=== PATIENT | male | born 1960 | race Caucasian/White ===

== ENCOUNTER 2018-04-06 09:55 | Emergency (ER) | payer MEDICAID, SELFPAY ==
[2018-04-06] VITALS (39 sets, daily range): BP systolic 78–142; BP diastolic 53–104; PULSE 61–140; RESP 1–24; TEMP 34.7–35.4; O2SAT 92–100
--- NOTE | 2018-04-06 10:10 | DI.CT_ITS ---
SYMPTOM/DIAGNOSIS: TRAUMA, FALL ? CT CHEST: There is no pleural effusion. The heart is not enlarged. There is no pericardial effusion The aorta is intact. No fracture is apparent. The image quality is somewhat limited due to patient motion and positioning. An endotracheal tube ends in good position, comfortably above the nina. CT ABDOMEN AND PELVIS: The liver is unremarkable. The gallbladder is somewhat dilated. No radiopaque stones are seen. As visualized, the pancreas appears intact. The spleen is intact. The patient appears to be status post left nephrectomy. A shrunken atrophic right kidney is identified. A transplanted kidney in the right hemipelvis appears intact. There is no evidence of hydronephrosis. What appears to represent a small cortical cyst is noted in the inferior portion of the kidney. There is no evidence of bowel obstruction. There is no evidence of free air or free fluid in the peritoneal space. The bladder is decompressed. Peraza catheter is in place. There is no localized mesenteric abnormality and no gross bowel abnormality is seen. A small fat containing right inguinal hernia is identified. No fracture involving the lumbar spine or pelvic bones or hips is apparent. There is no evidence of an aortic aneurysm. Please see the above discussion.
--- NOTE | 2018-04-06 10:10 | DI.CT_ITS ---
SYMPTOM/DIAGNOSIS: TRAUMA, ? FALL CRANIAL CT: There is no evidence of an intra or extra axial hemorrhage. No mass, edema or evidence of a territorial infarct is seen. The ventricles are unremarkable. There is no evidence of a skull fracture. The paranasal sinuses are intact. There is no evidence of a mastoid effusion. SUMMARY: No evidence of an acute intracranial abnormality. C-SPINE CT: The study was conducted according to the usual protocol without contrast enhancement. The vertebral bodies are intact. There is no gross disc space narrowing. The posterior elements are intact. There is degenerative facet joint DJD. There is no evidence of a fracture or dislocation. The neural canal is widely patent. The odontoid is intact and is closely applied to the anterior arch of C-1. The pre-vertebral soft tissues are unremarkable. An endotracheal tube is incompletely demonstrated but appears to end in the trachea. SUMMARY: No evidence of a fracture or dislocation. Endotracheal tube apparently in good position.
[2018-04-06 10:17] LABS: Mean Corp. HGB Concentration 31.4 g/dL (32.0-36.0); Mean Corpuscular Hemoglobin 30.9 pg (27.0-33.0); Mean Corpuscular Volume 98.4 fL (80-95); Mean Platelet Volume 9.1 fL (8.0-11.0); Platelet Count 171 x1000/uL (130-400); RBC 1.91 m/cumm (4.50-6.00); RBC Distribution Width 15.9 % (11.8-14.1); White Blood Cell Count 7.73 k/cumm (4.4-10.8)
[2018-04-06 10:18] LABS: HGB 5.9 g/dL (13.5-17.5)
[2018-04-06 10:19] LABS: HCT 18.8 % (40.0-50.0)
[2018-04-06 10:24] LABS: HCO3 (Venous) 15 mmol/L (22-28); O2 Sat (Venous) 97 % (70-80); TCO2 (Venous) 15 mmol/L (22-29); pCO2 (Venous) 44 mm/Hg (34-47); pO2 (Venous) 102 mm/Hg (28-44)
[2018-04-06] MEDS: Omnipaque 350 MG/ML 100 ML BTL IJ (10:24)
[2018-04-06 10:26] LABS: Absolute Eosinophil Count 0.08 k/cumm (0.0-0.7); Absolute Lymphocyte Count 3.09 k/cumm (1.2-3.4); Absolute Monocyte Count 0.54 k/cumm (0.11-0.7); Absolute Neutrophil Count 3.71 k/cumm (1.2-6.7); Diff Comment Manual Differential
[2018-04-06 10:27] LABS: Burr Cells (echinocyte) 2+; Poikilocytes 1+; pH (Venous) 7.14 (7.32-7.43)
[2018-04-06 10:29] LABS: ALT 20 U/L (12-78); AST 24 U/L (15-37); Albumin 2.3 g/dL (3.4-5.0); Alkaline Phosphatase 98 U/L (46-116); BUN 53 mg/dL (7-18); Bilirubin, Total 0.3 mg/dL (0.2-1.0); CREATININE 2.78 mg/dL (0.70-1.30); Calcium 7.2 mg/dL (8.5-10.1); Chloride 115 mmol/L (98-107); Estimated GFR 23.75 (mL/min/1.73m2); Glucose 184 mg/dL (70-100); Potassium 5.6 mmol/L (3.5-5.1); Sodium 143 mmol/L (136-145); Total Protein 4.9 g/dL (6.4-8.2)
[2018-04-06 10:32] LABS: PTT Activated 30.8 sec (21.0-31.4); Prothrombin Time 45.2 sec (9.3-10.8)
--- NOTE | 2018-04-06 10:35 | W.ED.GENAD ---
Discharge Plan Discharge Details Chief Complaint: [facility] Primary Care Provider: Carroll Fuentes ED Provider: Kurt Sandy Home Meds and New Rx's Prescriptions: No Action hydralazine 50 MG tablet 1 tab PO BID RF: 0 levetiracetam [Keppra] 1,000 MG tablet 500 mg PO BID Qty: 180 RF: 4 mycophenolate mofetil [CellCept] 250 MG capsule 1 tab PO BID RF: 0 metoprolol tartrate [Lopressor] 50 MG tablet 50 mg PO TID Qty: 270 RF: 3 pantoprazole 40 MG tablet,delayed release (DR/EC) 40 mg PO DAILY Qty: 90 RF: 1 sodium bicarbonate 650 MG tablet 650 mg PO TID RF: 0 losartan 25 MG tablet 25 mg PO QAM RF: 0 diltiazem HCl [Cartia XT] 120 MG capsule,extended release 24hr 120 mg PO DAILY RF: 0 Warfarin Sodium 5 MG tablet 0 - 7.5 mg PO as directed Qty: 180 RF: 3 levothyroxine [Synthroid] 88 MCG tablet 88 mcg PO DAILY Qty: 90 RF: 3 tacrolimus [Prograf] 1 MG capsule 1 cap PO BID Qty: 0 RF: 0 allopurinol 100 MG tablet 150 mg PO DAILY RF: 0 acetaminophen [Mapap Extra Strength] 500 MG tablet 1,000 mg PO Q6H PRN PRNQty: 30 RF: 0 Medical Decision Making 57-year-old male found in a pool of blood from exsanguination due to unknown injury to left upper extremity AV fistula. He required fluid bolus, epinephrine, CPR for return of spontaneous circulation in the field. He arrives with bag valve mask with a GCS of 3. Patient had left lower extremity IO access placed in the field. He had 2 right upper extremity peripheral IVs, 14-gauge and 16-gauge. Point pressure was applied persistent bleeding of left upper extremity. Patient has a hemoglobin of 5. He was given rapid infusion and placed on massive transition protocol including 4 units of blood, FFp. He was intubated for GCS of 3 on arrival following out of hospital PEA arrest. Case is discussed with Dr. Ireland of [facility], accepted in transfer. Prior to transfer patient underwent CT scan of the head, cervical spine, chest abdomen and pelvis given every we are unable to elicit any history of the antecedent events. inr 4, vitamin K administered as well. Per Dr. Goss, no evidence of acute traumatic injury to the head, cervical spine, or body images. After return from CT, the patient is alert, following commands, able to mouth appropriate words over the endotracheal tube. Patient to be transferred. HPI General Mode of arrival: EMS. Date/Time Provider Initiated Documentation: 04/06/18 09:56. Limitations to Documentation: altered mental status. Information obtained by: EMS. History of Present Illness 57 year old M presents to the emergency department with the chief complaint of Large volume blood loss and PEA arrest, described as severe, HPI Narrative: 57-year-old male brought by EMS after he was found unresponsive and covered in blood in his apartment. EMS report impressive amount of blood throughout the apartment and patient found unresponsive with agonal breathing in his bathroom. He was bleeding from the left upper extremity AV fistula. Patient received fluid bolus, 1 mg of epinephrine, CPR and had spontaneous return of circulation. Patient also brought to the ED. He is in critical condition and not contributory to the history Related Data Home Medications Medication Instructions Recorded Confirmed hydralazine 1 tab PO BID tab-cap 11/09/12 08/26/17 levetiracetam [Keppra] 500 mg PO BID #180 11/09/12 08/26/17 tacrolimus [Prograf] 1 cap PO BID #0 04/04/14 08/26/17 mycophenolate mofetil [CellCept] 1 tab PO BID tab-cap 09/04/15 08/26/17 allopurinol 150 mg PO DAILY 02/16/16 08/26/17 metoprolol tartrate [Lopressor] 50 mg PO TID #270 tab 11/04/16 pantoprazole 40 mg PO DAILY #90 tab-cap 08/17/17 sodium bicarbonate 650 mg PO TID 08/18/17 08/26/17 diltiazem HCl [Cartia XT] 120 mg PO DAILY 08/19/17 08/26/17 losartan 25 mg PO QAM 08/19/17 08/26/17 acetaminophen [Tylenol Extra 1,000 mg PO Q6H PRN PRN #30 tab 08/26/17 Strength] levothyroxine [Synthroid] 88 mcg PO DAILY #90 tab 10/08/17 Previous Rx's Medication Instructions Recorded tacrolimus [Prograf] 1 cap PO BID #0 04/04/14 pantoprazole 40 mg PO DAILY #90 tab-cap 08/17/17 acetaminophen [Tylenol Extra 1,000 mg PO Q6H PRN PRN #30 tab 08/26/17 Strength] levothyroxine [Synthroid] 88 mcg PO DAILY #90 tab 10/08/17 Allergies Allergy/AdvReac Type Severity Reaction Status Date / Time hydrochlorothiazide Allergy Mild Unverified 04/06/18 10:12 benazepril Allergy Unknown Unverified 04/06/18 10:12 codeine Allergy Unknown Unverified 04/06/18 10:12 Review of Systems Review of Systems Unobtainable due to mental status PFSH Family History Mother Diabetes Medical History Allergic rhinitis Chronic acquired lymphedema Cognitive impairment Gout H/O deep venous thrombosis H/O left inguinal hernia repair Hypertension IgA nephropathy Melanocytic nevi of trunk Personal history of immunosupression therapy Renal mass Right inguinal hernia Seizure disorder TBI (traumatic brain injury) Varicose veins of both lower extremities Venous insufficiency Social History Smoking/Tobacco Use Status: Never Surgical History Colonoscopy - MAC (02/22/17) Nephrectomy Repair of inguinal hernia bunionectomy kidney transplant Exam Const General: other (Syp-hosce-qkyd, covered in blood) HENDE Head: normocephalic and atraumatic Eyes Pupils: PERRL Neck Neck: normal visual inspection Resp Effort & Inspection: other (Assisted ventilation) Auscultation: clear to auscultation bilaterally Cardio Rate: tachycardic Rhythm: regular rhythm GI Inspection: non-distended Palpation: soft Penis: normal penis Skin General skin exam: other Neuro General: obtunded and other Speech: other Motor: other (Patient is moving all 4 external) Extrem General: other (Decreased cap refill, there are 2 tourniquets present in the proximal left humerus. There is an area of subcutaneous swelling with spurting blood the mid left arm. Hemostasis achieved with point pressure) Course Lab/Test Results Lab/Test Results: Laboratory Tests Range/Units 04/06/18 04/06/18 04/06/18 10:07 10:07 10:07 WBC (4.4-10.8) k/cumm 7.73 RBC (4.50-6.00) m/cumm 1.91 L Hgb (13.5-17.5) g/dL 5.9 L* Hct (40.0-50.0) % 18.8 L* MCV (80-95) fL 98.4 H MCH (27.0-33.0) pg 30.9 MCHC (32.0-36.0) g/dL 31.4 L RDW (11.8-14.1) % 15.9 H Plt Count (130-400) x1000/uL 171 MPV (8.0-11.0) fL 9.1 Immature Gran % See Differential Neutrophils % 46.0 Lymphocytes % 40.0 Monocytes % 7.0 Eosinophils % 1.0 Basophils % 0.0 Absolute Neutrophils (1.2-6.7) k/cumm 3.71 Band Neutrophils % 2.0 Absolute Lymphocytes (1.2-3.4) k/cumm 3.09 Absolute Monocytes (0.11-0.7) k/cumm 0.54 Absolute Eosinophils (0.0-0.7) k/cumm 0.08 Absolute Basophils (0.0-0.2) k/cumm 0.00 Metamyelocytes % 2.0 Myelocytes % 2.0 Differential Comment Manual differential RBC Morphology See below Poikilocytosis 1+ [place] Cells 2+ VBG pH (7.32-7.43) VBG pCO2 (34-47) mm/Hg VBG pO2 (28-44) mm/Hg VBG HCO3 (22-28) mmol/L VBG Total CO2 (22-29) mmol/L VBG O2 Saturation (70-80) % VBG Base Excess (-3-3) mmol/L Sodium (136-145) mmol/L 143 Potassium (3.5-5.1) mmol/L 5.6 H Chloride (98-107) mmol/L 115 H Carbon Dioxide (21.0-32.0) mmol/L 17.0 L Anion Gap (3-11) mmol/L 11.0 BUN (7-18) mg/dL 53 H Creatinine (0.70-1.30) mg/dL 2.78 H Estimated GFR/1.73 m2 (mL/min/1.73m2) 23.75 Glucose (70-100) mg/dL 184 H Calcium (8.5-10.1) mg/dL 7.2 L Total Bilirubin (0.2-1.0) mg/dL 0.3 AST (15-37) U/L 24 ALT (12-78) U/L 20 Alkaline Phosphatase (46-116) U/L 98 Total Protein (6.4-8.2) g/dL 4.9 L Albumin (3.4-5.0) g/dL 2.3 L Crossmatch See Detail Range/Units 04/06/18 10:07 WBC (4.4-10.8) k/cumm RBC (4.50-6.00) m/cumm Hgb (13.5-17.5) g/dL Hct (40.0-50.0) % MCV (80-95) fL MCH (27.0-33.0) pg MCHC (32.0-36.0) g/dL RDW (11.8-14.1) % Plt Count (130-400) x1000/uL MPV (8.0-11.0) fL Immature Gran % Neutrophils % Lymphocytes % Monocytes % Eosinophils % Basophils % Absolute Neutrophils (1.2-6.7) k/cumm Band Neutrophils % Absolute Lymphocytes (1.2-3.4) k/cumm Absolute Monocytes (0.11-0.7) k/cumm Absolute Eosinophils (0.0-0.7) k/cumm Absolute Basophils (0.0-0.2) k/cumm Metamyelocytes % Myelocytes % Differential Comment RBC Morphology Poikilocytosis [place] Cells VBG pH (7.32-7.43) 7.14 L VBG pCO2 (34-47) mm/Hg 44 VBG pO2 (28-44) mm/Hg 102 H VBG HCO3 (22-28) mmol/L 15 L VBG Total CO2 (22-29) mmol/L 15 L VBG O2 Saturation (70-80) % 97 H VBG Base Excess (-3-3) mmol/L Sodium (136-145) mmol/L Potassium (3.5-5.1) mmol/L Chloride (98-107) mmol/L Carbon Dioxide (21.0-32.0) mmol/L Anion Gap (3-11) mmol/L BUN (7-18) mg/dL Creatinine (0.70-1.30) mg/dL Estimated GFR/1.73 m2 (mL/min/1.73m2) Glucose (70-100) mg/dL Calcium (8.5-10.1) mg/dL Total Bilirubin (0.2-1.0) mg/dL AST (15-37) U/L ALT (12-78) U/L Alkaline Phosphatase (46-116) U/L Total Protein (6.4-8.2) g/dL Albumin (3.4-5.0) g/dL Crossmatch
--- NOTE | 2018-04-06 10:42 | ED.GENADUL_ITS ---
Discharge Plan Discharge Details Chief Complaint: [facility]Blue Primary Care Provider: Carroll Fuentes ED Provider: Kurt Sandy Home Meds and New Rx's Prescriptions: No Action hydralazine 50 MG tablet 1 tab PO BID RF: 0 levetiracetam [Keppra] 1,000 MG tablet 500 mg PO BID Qty: 180 RF: 4 mycophenolate mofetil [CellCept] 250 MG capsule 1 tab PO BID RF: 0 metoprolol tartrate [Lopressor] 50 MG tablet 50 mg PO TID Qty: 270 RF: 3 pantoprazole 40 MG tablet,delayed release (DR/EC) 40 mg PO DAILY Qty: 90 RF: 1 sodium bicarbonate 650 MG tablet 650 mg PO TID RF: 0 losartan 25 MG tablet 25 mg PO QAM RF: 0 diltiazem HCl [Cartia XT] 120 MG capsule,extended release 24hr 120 mg PO DAILY RF: 0 Warfarin Sodium 5 MG tablet 0 - 7.5 mg PO as directed Qty: 180 RF: 3 levothyroxine [Synthroid] 88 MCG tablet 88 mcg PO DAILY Qty: 90 RF: 3 tacrolimus [Prograf] 1 MG capsule 1 cap PO BID Qty: 0 RF: 0 allopurinol 100 MG tablet 150 mg PO DAILY RF: 0 acetaminophen [Mapap Extra Strength] 500 MG tablet 1,000 mg PO Q6H PRN PRNQty: 30 RF: 0 Medical Decision Making 57-year-old male found in a pool of blood from exsanguination due to unknown injury to left upper extremity AV fistula. He required fluid bolus, epinephrine , CPR for return of spontaneous circulation in the field. He arrives with bag valve mask with a GCS of 3. Patient had left lower extremity IO access placed in the field. He had 2 right upper extremity peripheral IVs, 14-gauge and 16- gauge. Point pressure was applied persistent bleeding of left upper extremity. Patient has a hemoglobin of 5. He was given rapid infusion and placed on massive transition protocol including 4 units of blood, FFp. He was intubated for GCS of 3 on arrival following out of hospital PEA arrest. [place] [facility] [place] Prior to transfer patient underwent CT scan of the head, cervical spine, chest abdomen and pelvis given every we are unable to elicit any history of the antecedent events. inr 4 , vitamin K administered as well. Per Dr. Goss, no evidence of acute traumatic injury to the head, cervical spine , or body images. After return from CT, the patient is alert, following commands, able to mouth appropriate words over the endotracheal tube. Patient to be transferred. HPI General Mode of arrival: EMS . Date/Time Provider Initiated Documentation: 04/06/18 09:56 . Limitations to Documentation: altered mental status . Information obtained by: EMS . History of Present Illness 57 year old M presents to the emergency department with the chief complaint of Large volume blood loss and PEA arrest, described as severe, HPI Narrative: 57-year-old male brought by EMS after he was found unresponsive and covered in blood in his apartment. EMS report impressive amount of blood throughout the apartment and patient found unresponsive with agonal breathing in his bathroom. He was bleeding from the left upper extremity AV fistula. Patient received fluid bolus, 1 mg of epinephrine, CPR and had spontaneous return of circulation. Patient also brought to the ED. He is in critical condition and not contributory to the history Related Data Home Medications Medication Instructions Recorded Confirmed hydralazine 1 tab PO BID tab-cap 11/09/12 08/26/17 levetiracetam [Keppra] 500 mg PO BID #180 11/09/12 08/26/17 tacrolimus [Prograf] 1 cap PO BID #0 04/04/14 08/26/17 mycophenolate mofetil [CellCept] 1 tab PO BID tab-cap 09/04/15 08/26/17 allopurinol 150 mg PO DAILY 02/16/16 08/26/17 metoprolol tartrate [Lopressor] 50 mg PO TID #270 tab 11/04/16 pantoprazole 40 mg PO DAILY #90 tab-cap 08/17/17 sodium bicarbonate 650 mg PO TID 08/18/17 08/26/17 diltiazem HCl [Cartia XT] 120 mg PO DAILY 08/19/17 08/26/17 losartan 25 mg PO QAM 08/19/17 08/26/17 acetaminophen [Tylenol Extra 1,000 mg PO Q6H PRN PRN #30 tab 08/26/17 Strength] levothyroxine [Synthroid] 88 mcg PO DAILY #90 tab 10/08/17 Previous Rx's Medication Instructions Recorded tacrolimus [Prograf] 1 cap PO BID #0 04/04/14 pantoprazole 40 mg PO DAILY #90 tab-cap 08/17/17 acetaminophen [Tylenol Extra 1,000 mg PO Q6H PRN PRN #30 tab 08/26/17 Strength] levothyroxine [Synthroid] 88 mcg PO DAILY #90 tab 10/08/17 Allergies Allergy/AdvReac Type Severity Reaction Status Date / Time hydrochlorothiazide Allergy Mild Unverified 04/06/18 10:12 benazepril Allergy Unknown Unverified 04/06/18 10:12 codeine Allergy Unknown Unverified 04/06/18 10:12 Review of Systems Review of Systems Unobtainable due to mental status PFSH Family History Mother Diabetes Medical History Allergic rhinitis Chronic acquired lymphedema Cognitive impairment Gout H/O deep venous thrombosis H/O left inguinal hernia repair Hypertension IgA nephropathy Melanocytic nevi of trunk Personal history of immunosupression therapy Renal mass Right inguinal hernia Seizure disorder TBI (traumatic brain injury) Varicose veins of both lower extremities Venous insufficiency Social History Smoking/Tobacco Use Status: Never Surgical History Colonoscopy - MAC (02/22/17) Nephrectomy Repair of inguinal hernia bunionectomy kidney transplant Exam Const General: other ([id number]-muvs, covered in blood) HENWI Head: normocephalic and atraumatic Eyes Pupils: PERRL Neck Neck: normal visual inspection Resp Effort & Inspection: other (Assisted ventilation) Auscultation: clear to auscultation bilaterally Cardio Rate: tachycardic Rhythm: regular rhythm GI Inspection: non-distended Palpation: soft Penis: normal penis Skin General skin exam: other Neuro General: obtunded and other Speech: other Motor: other (Patient is moving all 4 external) Extrem General: other (Decreased cap refill, there are 2 tourniquets present in the proximal left humerus. There is an area of subcutaneous swelling with spurting blood the mid left arm. Hemostasis achieved with point pressure) Course Lab/Test Results Lab/Test Results: Laboratory Tests Range/Units 04/06/18 04/06/18 04/06/18 10:07 10:07 10:07 WBC (4.4-10.8) k/cumm 7.73 RBC (4.50-6.00) m/cumm 1.91 L Hgb (13.5-17.5) g/dL 5.9 L* Hct (40.0-50.0) % 18.8 L* MCV (80-95) fL 98.4 H MCH (27.0-33.0) pg 30.9 MCHC (32.0-36.0) g/dL 31.4 L RDW (11.8-14.1) % 15.9 H Plt Count (130-400) x1000/uL 171 MPV (8.0-11.0) fL 9.1 Immature Gran % See Differential Neutrophils % 46.0 Lymphocytes % 40.0 Monocytes % 7.0 Eosinophils % 1.0 Basophils % 0.0 Absolute Neutrophils (1.2-6.7) k/cumm 3.71 Band Neutrophils % 2.0 Absolute Lymphocytes (1.2-3.4) k/cumm 3.09 Absolute Monocytes (0.11-0.7) k/cumm 0.54 Absolute Eosinophils (0.0-0.7) k/cumm 0.08 Absolute Basophils (0.0-0.2) k/cumm 0.00 Metamyelocytes % 2.0 Myelocytes % 2.0 Differential Comment Manual differential RBC Morphology See below Poikilocytosis 1+ [place] Cells 2+ VBG pH (7.32-7.43) VBG pCO2 (34-47) mm/Hg VBG pO2 (28-44) mm/Hg VBG HCO3 (22-28) mmol/L VBG Total CO2 (22-29) mmol/L VBG O2 Saturation (70-80) % VBG Base Excess (-3-3) mmol/L Sodium (136-145) mmol/L 143 Potassium (3.5-5.1) mmol/L 5.6 H Chloride (98-107) mmol/L 115 H Carbon Dioxide (21.0-32.0) mmol/L 17.0 L Anion Gap (3-11) mmol/L 11.0 BUN (7-18) mg/dL 53 H Creatinine (0.70-1.30) mg/dL 2.78 H Estimated GFR/1.73 m2 (mL/min/1.73m2) 23.75 Glucose (70-100) mg/dL 184 H Calcium (8.5-10.1) mg/dL 7.2 L Total Bilirubin (0.2-1.0) mg/dL 0.3 AST (15-37) U/L 24 ALT (12-78) U/L 20 Alkaline Phosphatase (46-116) U/L 98 Total Protein (6.4-8.2) g/dL 4.9 L Albumin (3.4-5.0) g/dL 2.3 L Crossmatch See Detail Range/Units 04/06/18 10:07 WBC (4.4-10.8) k/cumm RBC (4.50-6.00) m/cumm Hgb (13.5-17.5) g/dL Hct (40.0-50.0) % MCV (80-95) fL MCH (27.0-33.0) pg MCHC (32.0-36.0) g/dL RDW (11.8-14.1) % Plt Count (130-400) x1000/uL MPV (8.0-11.0) fL Immature Gran % Neutrophils % Lymphocytes % Monocytes % Eosinophils % Basophils % Absolute Neutrophils (1.2-6.7) k/cumm Band Neutrophils % Absolute Lymphocytes (1.2-3.4) k/cumm Absolute Monocytes (0.11-0.7) k/cumm Absolute Eosinophils (0.0-0.7) k/cumm Absolute Basophils (0.0-0.2) k/cumm Metamyelocytes % Myelocytes % Differential Comment RBC Morphology Poikilocytosis [place] Cells VBG pH (7.32-7.43) 7.14 L VBG pCO2 (34-47) mm/Hg 44 VBG pO2 (28-44) mm/Hg 102 H VBG HCO3 (22-28) mmol/L 15 L VBG Total CO2 (22-29) mmol/L 15 L VBG O2 Saturation (70-80) % 97 H VBG Base Excess (-3-3) mmol/L Sodium (136-145) mmol/L Potassium (3.5-5.1) mmol/L Chloride (98-107) mmol/L Carbon Dioxide (21.0-32.0) mmol/L Anion Gap (3-11) mmol/L BUN (7-18) mg/dL Creatinine (0.70-1.30) mg/dL Estimated GFR/1.73 m2 (mL/min/1.73m2) Glucose (70-100) mg/dL Calcium (8.5-10.1) mg/dL Total Bilirubin (0.2-1.0) mg/dL AST (15-37) U/L ALT (12-78) U/L Alkaline Phosphatase (46-116) U/L Total Protein (6.4-8.2) g/dL Albumin (3.4-5.0) g/dL Crossmatch
--- NOTE | 2018-04-06 10:44 | DI.CT_ITS ---
SYMPTOMS/DIAGNOSIS: RECONS RE[place] DR. SABRINA WAITE [place] [facility] [place]ORACIC [place] LUMBAR SPINE: The patient had a prior CT of the chest and abdomen. The reconstructed images today reveal degenerative changes involving the lower dorsal and lumbar spine.
[2018-04-06 10:51] LABS: INR 4.9 (1.0-3.5)
[2018-04-06] MEDS: MIDAZOLAM 50 MG in Normal Saline 90 ML IV (11:25)
[2018-04-06] MEDS: fentaNYL 100 MCG/2 ML VIAL (11:30)
--- NOTE | 2018-04-06 12:01 | ANES_ITS ---
Date of service: 04/06/18 Anesthesia Note Report Anesthesia Note: Called to the ED for trauma arrest. Pt arrived via EMS, covered in blood, unresponsive with ventilations being assisted. Ventilation assist taken over from EMS, easy assist/mask ventilation with single handed mask. 100 mm OPA placed without difficulty, but removed due to patient coughing/ gaging on it. Once additional tourniquet applied to control bleeding, patient was sat up, and positioned for intubation. Confirmation of working suction, positive pressure ability, working ETCO2, and appropriate drugs and airway equipment available and ready. 100 mg ketamine and 50 mg of rocuronium was administered, ventilations taken over (easy gentle mask ventilation). A glide 3 blade was inserted into the mouth yielding a grade 1 view, but tube was unable to be passed successfully through the cord due to angle of view. Attempt was aborted, gentle mask ventilation was resumed with good chest rise and positive ETCO2. Attempt 2 was also with glide 3 but attempted with bougie, angle continued to be a hindrance to bougie placement and attempt aborted and mask ventilation resumed. Attempt 3 was preformed with Mac 3 a grade 1 view was appreciated and a bougie was placed, then a 7.5 ETT was advanced without difficulty. Positive ETCO2 was noted, tube position initially confirmed with positive balloting of the cuff while waiting for CXR. ETT secured at 24 at the teeth with e-tad, placed on mechanical ventilaiton via RT. Patient is an easy airway, believe initial inability to deliver the ETT due to sub-optimal patient positioning. 10 mcg of epi given during the procedure to maintain appropriate hydrodynamics, pt was hemodynamicly stable throughout the airway securement. SPO2 was not consistently obtained due to poor perfusion.
--- NOTE | 2018-04-06 15:51 | NUR.NOTE ---
Nursing Note: Patient arrived via ambulance nonresponsive and being assisted with Bag assisted ventilations. Trauma alert was activated and anesthesia, surgeon, housekeeper/laundry assistant, radiology and nursing on site in addition to physician. Pt immediately transfused 2 units via rapid infuser at 0954: 1st unit: [id number] and ended 1016. 2nd unit began at 1000 [id number] ending at 1006. Tourniquet from EMS was applied at 0949 but upon [facility] and [facility], patient's wound began to spurt across room and a second tourniquet was applied at 0951. Bleeding controlled and a pressure dressing was applied. Pt had a 16g in R AC and a IO access in left tibia placed by EMS. Labs drawn at 1001. Anesthesia intubated with respiratory's assistance and medications were drawn up and administered by anesthesia at 1008. At 1003 100mg of Ketamine was given in IV R AC and 50mg of Roccuronium was also administered by anesthesia. Pt intubated with a 7.5 ET tube at 24cm at the lips. At 1005 10 mcg of Epi given IV by anesthesia. Escobar inserted at 1010 by RN with clear urine resulted. Pt placed on ventilator by respiratory at 1010 and a C-collar was placed on per order of MD. A 2nd IV was inserted by anesthesia at 1019: 16 in L AC, core temp from escobar noted to be 35.2 at this time. Pt to CT at 1022 with respiratory and nursing in attendance once stable. 3rd unit of blood: [id number] started at 1030 and ended at 1055 via pressure bag per MD. 4th unit of RBC's: started at 1055 and ended 1140 via bolus: [id number]. One unit of plasma started at 1120: [id number] and ended at 1128. Second plasma given at 1130 and at 1132: [id number] 5th unit of blood started at 1130 and ended 1135: [id number]. 6th unit of RBC's started at [id number] started at 1135 and continued to go in with pressure bag with EMS. Pt started on Versed drip. Able to open eyes and communicate with simple questions. MD updated pt's mother via phone. Pt given 50 mcg Fentanyl at 1130 and another 50mcg IV by ems upon leaving. Report called to SAVANNA Patterson at [facility].
== END 2018-04-06 11:48 ==
PROVIDERS: Physician Assistant; Emergency Provider Emergency Medicine; PCP Emergency Medicine
DX: T82.838A Hemorrhage due to vascular prosthetic devices, implants and grafts, initial encounter (principal); Z95.828 Presence of other vascular implants and grafts; I12.0 Hypertensive chronic kidney disease with stage 5 chronic kidney disease or end stage renal disease; N18.6 End stage renal disease; Z99.2 Dependence on renal dialysis; R40.2432 Glasgow coma scale score 3-8, at arrival to emergency department; Z94.0 Kidney transplant status; I10 Essential (primary) hypertension
CPT/HCPCS: 31500; 36415; 36430; 51702; 74177; 80053; 82805; 82947; 84520; 86850; 86900; 86901; 86920; 96365; 96372; 96375; 99291; 70450; 71260; 72125; 81003; 82310; 82374; 82435; 82565; 84132; 84295; 85025; 85610; 85730; J0171; J3010; J3490; P9016; P9059

== ENCOUNTER 2018-05-31 15:44 | Outpatient (REF) | payer MEDICAID, SELFPAY ==
[2018-05-31 16:52] LABS: Anion Gap 14.6 mmol/L (3-11); BUN 59 mg/dL (7-18); CO2 17.4 mmol/L (21.0-32.0); CREATININE 3.34 mg/dL (0.70-1.30); Calcium 8.2 mg/dL (8.5-10.1); Chloride 113 mmol/L (98-107); Estimated GFR 19.22 (mL/min/1.73m2); Glucose 136 mg/dL (70-100); Potassium 5.2 mmol/L (3.5-5.1); Sodium 145 mmol/L (136-145)
[2018-05-31 16:57] LABS: Absolute Basophil Count 0.04 k/cumm (0.0-0.2); Absolute Eosinophil Count 0.15 k/cumm (0.0-0.7); Absolute Lymphocyte Count 1.22 k/cumm (1.2-3.4); Absolute Monocyte Count 0.41 k/cumm (0.11-0.7); Absolute Neutrophil Count 2.59 k/cumm (1.2-6.7); Basophils % 0.9; Eosinophils % 3.4; HCT 30.4 % (40.0-50.0); HGB 9.5 g/dL (13.5-17.5); Lymphocytes % 27.7; Mean Corp. HGB Concentration 31.3 g/dL (32.0-36.0); Mean Corpuscular Hemoglobin 30.4 pg (27.0-33.0); Mean Corpuscular Volume 97.1 fL (80-95); Monocytes % 9.3; Neutrophils % 58.7; Platelet Count 211 x1000/uL (130-400); RBC 3.13 m/cumm (4.50-6.00); RBC Distribution Width 15.1 % (11.8-14.1); White Blood Cell Count 4.41 k/cumm (4.4-10.8)
[2018-05-31 17:25] LABS: Diff Comment RBC Morph Reviewed; RBC Morphology Normal
== END 2018-05-31 16:04 ==
LOC: LBN 15:44
PROVIDERS: PCP Emergency Medicine; Visit Provider Family Medicine
DX: N18.4 Chronic kidney disease, stage 4 (severe) (principal); Z94.0 Kidney transplant status; I10 Essential (primary) hypertension; Z92.25 Personal history of immunosuppression therapy; Z79.899 Other long term (current) drug therapy; D64.9 Anemia, unspecified
CPT/HCPCS: 80048; 85025

== ENCOUNTER 2018-06-02 12:58 | Emergency (ER) | payer MEDICAID, SELFPAY ==
[2018-06-02] VITALS (14 sets, daily range): BP systolic 155–176; BP diastolic 95–106; PULSE 61–69; RESP 16–23; TEMP 36.2; O2SAT 94–98
--- NOTE | 2018-06-02 13:07 | DI.CT_ITS ---
SYMPTOMS/DIAGNOSIS: FALL, TRAUMA, ALTERED CRANIAL CT: The examination was carried out without contrast enhancement. Note is made of a right frontal subarachnoid hemorrhage and right temporal lobe in a number of locations. In addition subarachnoid hemorrhage in the right sylvian fissure is apparent. There are small parenchymal hemorrhages in the right frontal lobe and right temporal lobe. There is ventriculomegaly and there is no skull fracture. Note is made of minimal mucosal thickening in the maxillary sinuses. There is no mastoid effusion. There is disruption of the extra calvarial soft tissues laterally and on left. These findings may represent lacerations. SUMMARY: 1. Subarachnoid hemorrhage in the right frontal lobe and right temporal lobe in multiple locations with subarachnoid hemorrhage in the right sylvian fissure. In addition small parenchymal hemorrhages are noted in the right frontal lobe and right temporal lobe. 2. Disruption of the extra calvarial soft tissues laterally on the left could represent lacerations with note also made of what appears to represent a left scalp hematoma. CERVICAL SPINE CT: There is no acute fracture involving the cervical spine. There is no evidence of dislocation. Note is made of anterior osteophytes at C 4 through C 7 and degenerative changes in the facet joints at multiple levels are also identified in this patient. In addition degenerative C 1 - 2 changes are apparent. Intervertebral disc space narrowing is noted at C 5 through C 7 likely represents degenerative change. The soft tissues are unremarkable. Heterogeneity of the thyroid is incidentally identified. The lungs apices are normal. Also incidental note is made of nonspecific fluid within the ethmoid sinuses. SUMMARY: There is no evidence of an acute fracture or subluxation involving the cervical spine. Degenerative changes as described above.
--- NOTE | 2018-06-02 13:16 | ED.GENADUL_ITS ---
Discharge Plan Disposition Patient Disposition: [facility] Discharge Details Chief Complaint: HeadInjury Clinical Impression: Subarachnoid hemorrhage Reason For Visit: NINOSKA Primary Care Provider: Carroll Fuentes ED Provider: Sven Murray Home Meds and New Rx's Prescriptions: No Action hydralazine 50 MG tablet 1 tab PO BID RF: 0 levetiracetam [Keppra] 1,000 MG tablet 500 mg PO BID Qty: 180 RF: 4 mycophenolate mofetil [CellCept] 250 MG capsule 1 tab PO BID RF: 0 metoprolol tartrate [Lopressor] 50 MG tablet 50 mg PO TID Qty: 270 RF: 3 pantoprazole 40 MG tablet,delayed release (DR/EC) 40 mg PO DAILY Qty: 90 RF: 1 sodium bicarbonate 650 MG tablet 650 mg PO TID RF: 0 losartan 25 MG tablet 25 mg PO QAM RF: 0 diltiazem HCl [Cartia XT] 120 MG capsule,extended release 24hr 120 mg PO DAILY RF: 0 Warfarin Sodium 5 MG tablet 0 - 7.5 mg PO as directed Qty: 180 RF: 3 levothyroxine [Synthroid] 88 MCG tablet 88 mcg PO DAILY Qty: 90 RF: 3 tacrolimus [Prograf] 1 MG capsule 1 cap PO BID Qty: 0 RF: 0 allopurinol 100 MG tablet 150 mg PO DAILY RF: 0 acetaminophen [Mapap Extra Strength] 500 MG tablet 1,000 mg PO Q6H PRN PRNQty: 30 RF: 0 multivitamin [Multiple Vitamins] Tablet 1 tab PO DAILY RF: 0 sennosides-docusate sodium [Senna Plus] 8.6-50 mg Tablet 2 tab PO DAILY RF: 0 amlodipine 2.5 mg Tablet 2.5 mg PO DAILY RF: 0 levetiracetam 250 mg Tablet 250 mg PO HS RF: 0 cephalexin [Keflex] 500 mg Capsule 500 mg PO DAILY AM RF: 0 calcitriol 0.5 mcg Capsule 0.5 mcg PO Q OTHER DAY RF: 0 epoetin kerry 20,000 unit/2 mL Solution 1 ml subcut QWEEK RF: 0 Discharge Data Discharge Date/Time-TO BE ENTERED AT DEPARTURE: 06/02/18 14:57 Medical Decision Making 14:13 -- Patient was seen immediately on arrival and medical screening exam performed. 57yo m here with EMS after fall down few steps with left frontal head injury, bleeding heavily, controlled with continued direct pressure. Immediately examined and patient had heavy venous flow from the wound. Lidocaine with epinephrine 8 mL injected locally, wound closed [id number], bleeding controlled but large hematoma forming in the area, pressure dressing applied. Patient noted to have altered mental status that seem to be waxing and waning. Currently maintaining airway. High concern for acute life-threatening intracranial traumatic hemorrhage. Stat CT head. Cervical collar applied. General surgery consulted to assess wound. Finger 8 removed, hemostasis achieved and wound closed primarily. CT of the head interpreted by radiology: Right frontal, temporal and intraparenchymal subarachnoid hemorrhage. HOB 30 deg. Initial concern for anticoagulation as patient notes that he is on coumadin. MAR from rehab reviewed and no coumadin noted. Patient is on low dose asa. INR 1.0 . No reversal indicated. I called and spoke with [facility] trauma who will accept the patient in transfer. Recommend starting nicardipine to control blood pressure and maintain <160. [facility] not able to fly due to weather. Will send by ground with medic. SBP 155/100. HPI General Mode of arrival: ambulatory . Date/Time Provider Initiated Documentation: 06/02/18 13:07 . Limitations to Documentation: altered mental status . Information obtained by: patient and EMS . HPI Narrative: 57yo m with multiple medical problems including s/p renal transplant, recent cardiac arrest, here with mechanical fall with head trauma. HX limited 2/2 altered mentation. Patient denies MÉNDEZ. Feels confused. EMS note heavy bleeding. Related Data Home Medications Medication Instructions Recorded Confirmed hydralazine 1 tab PO BID tab-cap 11/09/12 06/05/18 levetiracetam [Keppra] 500 mg PO BID #180 11/09/12 06/05/18 tacrolimus [Prograf] 1 cap PO BID #0 04/04/14 06/05/18 mycophenolate mofetil [CellCept] 1 tab PO BID tab-cap 09/04/15 06/05/18 allopurinol 150 mg PO DAILY 02/16/16 06/05/18 metoprolol tartrate [Lopressor] 50 mg PO TID #270 tab 11/04/16 06/05/18 pantoprazole 40 mg PO DAILY #90 tab-cap 08/17/17 06/05/18 sodium bicarbonate 650 mg PO TID 08/18/17 06/05/18 diltiazem HCl [Cartia XT] 120 mg PO DAILY 08/19/17 06/05/18 losartan 25 mg PO QAM 08/19/17 06/05/18 acetaminophen [Mapap Extra 1,000 mg PO Q6H PRN PRN #30 tab 08/26/17 06/05/18 Strength] levothyroxine [Synthroid] 88 mcg PO DAILY #90 tab 10/08/17 06/05/18 amlodipine 2.5 mg PO DAILY 06/05/18 06/05/18 calcitriol 0.5 mcg PO Q OTHER DAY 06/05/18 06/05/18 cephalexin [Keflex] 500 mg PO DAILY AM 06/05/18 06/05/18 epoetin kerry 1 ml SUBCUT QWEEK 06/05/18 06/05/18 levetiracetam 250 mg PO HS 06/05/18 06/05/18 multivitamin [Multiple Vitamins] 1 tab PO DAILY 06/05/18 06/05/18 sennosides-docusate sodium [Senna 2 tab PO DAILY 06/05/18 06/05/18 Plus] Previous Rx's Medication Instructions Recorded tacrolimus [Prograf] 1 cap PO BID #0 04/04/14 pantoprazole 40 mg PO DAILY #90 tab-cap 08/17/17 acetaminophen [Mapap Extra 1,000 mg PO Q6H PRN PRN #30 tab 08/26/17 Strength] levothyroxine [Synthroid] 88 mcg PO DAILY #90 tab 10/08/17 Allergies Allergy/AdvReac Type Severity Reaction Status Date / Time hydrochlorothiazide Allergy Mild Unverified 06/05/18 15:58 benazepril Allergy Unknown Unverified 06/05/18 15:58 codeine Allergy Unknown Unverified 06/05/18 15:58 pollen extracts AdvReac Mild chronic Unverified 06/05/18 15:58 rhinitis General Stated Complaint: HeadInjury SANJUANA: 2 Review of Systems Review of Systems Unobtainable due to mental condition PFSH Family History Mother Diabetes Medical History Allergic rhinitis Chronic acquired lymphedema Cognitive impairment Gout H/O deep venous thrombosis H/O left inguinal hernia repair Hypertension IgA nephropathy Melanocytic nevi of trunk Personal history of immunosupression therapy Renal mass Right inguinal hernia Seizure disorder TBI (traumatic brain injury) Varicose veins of both lower extremities Venous insufficiency Social History Smoking/Tobacco Use Status: Never Surgical History Colonoscopy - MAC (02/22/17) Nephrectomy Repair of inguinal hernia bunionectomy kidney transplant Social History Smoking/Tobacco Use Status: Never Exam Const General: cooperative and anxious Orientation: alert and confused Limitations: altered mental status HENMT Head: no palpable skull fracture and other (2 cm lac left forehead with flowing venous bleeding) Mouth: moist mucous membranes Eyes Conjunctivae: normal conjunctivae Sclera: normal sclerae EOM: EOM intact bilaterally Neck Neck: trachea midline and supple Resp Auscultation: clear to auscultation bilaterally, no rales, no rhonchi and no wheezes Cardio Jugular venous pressure: no JVD Rate: regular rate and not tachycardic Rhythm: regular rhythm GI Palpation: soft, not firm, no guarding, no masses, not rigid and nontender Skin General skin exam: no rashes or lesions noted Neuro General: alert, awake, oriented Patient Orientation: Person, Place and Confused , tone normal and no focal motor deficits Extrem General: edema Laterality: bilateral Psych Appearance: grossly normal Speech and Movement: speech and movement normal Course Vital Signs Temperature 36.2 C L 06/02/18 12:56 Pulse 69 06/02/18 12:56 Respiratory Rate 16 06/02/18 12:56 Blood Pressure 159/105 H 06/02/18 12:56 Pulse Oximetry 98 06/02/18 12:56 Temperature 36.2 C L 06/02/18 12:56 Temperature Source Skin 06/02/18 12:56 Pulse 69 06/02/18 12:56 Respiratory Rate 16 06/02/18 12:56 Respiratory Effort 06/02/18 12:56 Blood Pressure 159/105 H 06/02/18 12:56 Blood Pressure Position Sitting 06/02/18 12:56 Pulse Oximetry 98 06/02/18 12:56 Oxygen Delivery Method Room Air 06/02/18 12:56 Oxygen Flow Rate 0 06/02/18 12:56 Pain Level 0 06/02/18 12:56 Critical Care Time Critical Care Time: Yes Total Critical Care Time: 65 Attestation: Greater than 65 minutes addressing this patient's immediate life threats
[2018-06-02] MEDS: Normal Saline Flush 10 ML SYR IVP (13:45)
[2018-06-02 13:54] LABS: Abs Immature Grans 0.01 k/cumm (0.0-0.09); Absolute Basophil Count 0.02 k/cumm (0.0-0.2); Absolute Eosinophil Count 0.12 k/cumm (0.0-0.7); Absolute Lymphocyte Count 1.29 k/cumm (1.2-3.4); Absolute Monocyte Count 0.34 k/cumm (0.11-0.7); Absolute Neutrophil Count 2.97 k/cumm (1.2-6.7); Basophils % 0.4; Eosinophils % 2.5; HCT 27.8 % (40.0-50.0); HGB 9.2 g/dL (13.5-17.5); Immature Grans % 0.2; Lymphocytes % 27.2; Mean Corp. HGB Concentration 33.1 g/dL (32.0-36.0); Mean Corpuscular Hemoglobin 31.4 pg (27.0-33.0); Mean Corpuscular Volume 94.9 fL (80-95); Mean Platelet Volume 8.6 fL (8.0-11.0); Monocytes % 7.2; Neutrophils % 62.5; Platelet Count 163 x1000/uL (130-400); RBC 2.93 m/cumm (4.50-6.00); RBC Distribution Width 14.7 % (11.8-14.1); White Blood Cell Count 4.75 k/cumm (4.4-10.8)
--- NOTE | 2018-06-02 14:00 | DI.VRAD_ITS ---
EXAM: CT Head Without Intravenous Contrast EXAM DATE/TIME: 06/02/2018 1:09 PM CLINICAL HISTORY: 57 years old, male; Injury or trauma; Fall; Injury history: Trauma, altered; Initial encounter; Bleeding / hemorrhage; Bleeding/hemorrhage; Injury date: 06/02/2018 TECHNIQUE: Axial computed tomography images of the head/brain without intravenous contrast. All CT scans at this facility use at least one of these dose optimization techniques: automated exposure control; mA and/or kV adjustment per patient size (includes targeted exams where dose is matched to clinical indication); or iterative reconstruction. Coronal and sagittal reformatted images were created and reviewed. COMPARISON: CT HEAD CERVICAL SPINE WO 04/06/2018 10:16 AM FINDINGS: Brain: Subarachnoid hemorrhage in the right frontal lobe and right temporal lobe in multiple locations. Subarachnoid hemorrhage in the right sylvian fissure.. Small Parenchymal hemorrhages in the right frontal lobe and right temporal lobe. Midline shift: No midline shift Ventricles: Normal. No ventriculomegaly. Bones/joints: Normal. No acute fracture. Sinuses: Minimal mucosal thickening in the maxillary sinuses Mastoid air cells: Normal as visualized. No mastoid effusion. Soft tissues: Disruption in the extracalvarial soft tissues laterally on the left may represent lacerations. IMPRESSION: 1. Subarachnoid hemorrhage in the right frontal lobe and right temporal lobe in multiple locations. Subarachnoid hemorrhage in the right sylvian fissure.. Small Parenchymal hemorrhages in the right frontal lobe and right temporal lobe. 2. Disruption in the extracalvarial soft tissues laterally on the left may represent lacerations. THIS REPORT CONTAINS FINDINGS THAT MAY BE CRITICAL TO PATIENT CARE. The findings were verbally communicated via telephone conference with Sven Murray at 1:58 PM EST on 06/02/2018. The findings were acknowledged and understood. EXAM: CT Cervical Spine Without Intravenous Contrast EXAM DATE/TIME: 06/02/2018 1:09 PM CLINICAL HISTORY: 57 years old, male; Injury or trauma; Fall; Injury history: Trauma, altered; Initial encounter; Bleeding / hemorrhage; Bleeding/hemorrhage; Injury date: 06/02/2018 TECHNIQUE: Axial computed tomography images of the cervical spine without intravenous contrast. Coronal and sagittal reformatted images were created and reviewed. COMPARISON: CT HEAD CERVICAL SPINE WO 04/06/2018 10:16 AM FINDINGS: Vertebrae: No acute fracture of the cervical spine. No subluxation or dislocation of the cervical spine. Anterior osteophyte formation C4-C7 Degenerative changes in the facets at multiple levels Degenerative changes at C1/C2 Discs/Spinal canal/Neural foramina: Intervertebral disc space narrowing C5-C7 may represent degenerative disc disease.. Posterior osteophyte formation C3-C7 Soft tissues: Unremarkable. Thyroid: The thyroid is heterogeneous Lungs: Lung apices are normal. Other findings: There is nonspecific fluid within the ethmoid sinuses. IMPRESSION: 1. No acute fracture of the cervical spine. 2. No subluxation or dislocation of the cervical spine. 3. Intervertebral disc space narrowing C5-C7 may represent degenerative disc disease. Recommend MRI if clinically indicated. Dictated and Authenticated by: Gilda Li MD. Ordering:JEFF DOCKERY MD
[2018-06-02] MEDS: PHYTONADIONE 10 MG in Normal Saline 50 ML 200 MG IVPB (14:02)
[2018-06-02 14:03] LABS: ALT 20 U/L (12-78); AST 22 U/L (15-37); Albumin 3.2 g/dL (3.4-5.0); Alkaline Phosphatase 96 U/L (46-116); Anion Gap 12.9 mmol/L (3-11); BUN 61 mg/dL (7-18); Bilirubin, Total 0.4 mg/dL (0.2-1.0); CO2 19.1 mmol/L (21.0-32.0); CREATININE 3.35 mg/dL (0.70-1.30); Calcium 8.1 mg/dL (8.5-10.1); Chloride 108 mmol/L (98-107); Estimated GFR 19.15 (mL/min/1.73m2); Glucose 146 mg/dL (70-100); Potassium 5.3 mmol/L (3.5-5.1); Sodium 140 mmol/L (136-145); Total Protein 6.1 g/dL (6.4-8.2)
== END 2018-06-02 14:57 | disposition short-term general hospital (02) ==
PROVIDERS: Emergency Provider Student in an Organized Health Care Education/Training Program; PCP Emergency Medicine
DX: S01.112A Laceration without foreign body of left eyelid and periocular area, initial encounter (principal); S06.6X9A Traumatic subarachnoid hemorrhage with loss of consciousness of unspecified duration, initial encounter; W10.8XXA Fall (on) (from) other stairs and steps, initial encounter; Z79.01 Long term (current) use of anticoagulants; Z94.0 Kidney transplant status; I12.0 Hypertensive chronic kidney disease with stage 5 chronic kidney disease or end stage renal disease; N18.6 End stage renal disease
CPT/HCPCS: 36415; 80053; 86850; 86900; 86901; 96374; 99291; 70450; 72125; 85025; 85610; J3430; L0172

== ENCOUNTER 2018-06-05 15:35 | Emergency (ER) | payer MEDICAID, SELFPAY ==
[2018-06-05] VITALS (8 sets, daily range): BP systolic 158–181; BP diastolic 97–104; PULSE 48–53; RESP 10–20; TEMP 36.6; O2SAT 95–97
--- NOTE | 2018-06-05 15:55 | DI.CT_ITS ---
SYMPTOM/DIAGNOSIS: QUESTION LT WEAKNESS, S/P SAH NONCONTRAST HEAD CT: Comparison is made with 02 June 2018 Subarachnoid hemorrhage is again noted around the right frontal lobe within the sulci. The findings are grossly unchanged from the previous exam. No intraparenchymal hemorrhage or subdural collection is seen. There is a mild increase in effacement of the sulci and gyri in the right frontal and parietal regions. There is underlying atrophy and right matter changes of small vessel disease. The ventricles are unchanged in size. IMPRESSION: Stable appearance of right frontal subarachnoid hemorrhage and mild adjacent edema.
--- NOTE | 2018-06-05 15:57 | W.ED.GENAD ---
Discharge Plan Disposition Patient Disposition: [facility] (LEVEL [facility]) [facility] Condition: Improving Discharge Details Chief Complaint: AMS/LOC Clinical Impression: Seizure after head injury Reason For Visit: NINOSKA Primary Care Provider: Carroll Fuentes ED Provider: Kurt Sandy Home Meds and New Rx's Prescriptions: Continue hydralazine 50 MG tablet 1 tab PO BID RF: 0 levetiracetam [Keppra] 1,000 MG tablet 500 mg PO BID Qty: 180 RF: 4 mycophenolate mofetil [CellCept] 250 MG capsule 1 tab PO BID RF: 0 metoprolol tartrate [Lopressor] 50 MG tablet 50 mg PO TID Qty: 270 RF: 3 pantoprazole 40 MG tablet,delayed release (DR/EC) 40 mg PO DAILY Qty: 90 RF: 1 sodium bicarbonate 650 MG tablet 650 mg PO TID RF: 0 losartan 25 MG tablet 25 mg PO QAM RF: 0 diltiazem HCl [Cartia XT] 120 MG capsule,extended release 24hr 120 mg PO DAILY RF: 0 Warfarin Sodium 5 MG tablet 0 - 7.5 mg PO as directed Qty: 180 RF: 3 levothyroxine [Synthroid] 88 MCG tablet 88 mcg PO DAILY Qty: 90 RF: 3 tacrolimus [Prograf] 1 MG capsule 1 cap PO BID Qty: 0 RF: 0 allopurinol 100 MG tablet 150 mg PO DAILY RF: 0 acetaminophen [Mapap Extra Strength] 500 MG tablet 1,000 mg PO Q6H PRN PRNQty: 30 RF: 0 multivitamin [Multiple Vitamins] Tablet 1 tab PO DAILY RF: 0 sennosides-docusate sodium [Senna Plus] 8.6-50 mg Tablet 2 tab PO DAILY RF: 0 amlodipine 2.5 mg Tablet 2.5 mg PO DAILY RF: 0 levetiracetam 250 mg Tablet 250 mg PO HS RF: 0 cephalexin [Keflex] 500 mg Capsule 500 mg PO DAILY AM RF: 0 calcitriol 0.5 mcg Capsule 0.5 mcg PO Q OTHER DAY RF: 0 epoetin kerry 20,000 unit/2 mL Solution 1 ml subcut QWEEK RF: 0 Discharge Instructions Additional Instructions: I discussed your case today with both the neurosurgery and neurology departments at [facility]. You had a repeat CT scan of the head. Dr. Zheng from neurology recommends that you increase your Keppra to 750 mg twice daily from its current dosing levels. Return to the emergency department for recurrent seizure, recurrent change in mental status, or any other acute concerns. Medical Decision Making 57-year-old male who is currently convalescing in local rehabilitation facility after discharge from [facility] yesterday following subarachnoid hemorrhage that did not require craniotomy. He is known to have recurrent anemia and chronic renal dysfunction status post transplant. Patient was noted at the rehabilitation facility today to have word finding difficulties, question of transient left arm weakness, question transient mental status changes. He was subsequent referred to the ER for further evaluation. Patient IV access established, repeat laboratories obtained, referred for CT images. The CT does reveal persistent small areas of petechial/subarachnoid hemorrhage in the right frontal lobe that are more pronounced than on the previous examination. There is some increased effacement of the sulci and gyri in the right parietal lobe. Images reviewed and case discussed with on-call [facility] Neurosurgery, who feel there is no significant change from their last CT on 06/04. GIven the patients history of DVT and no current anticoagulation, must consider DVT and possible embolic CVA. Case discussed with on-call Neurology at [facility] who reviewed the patient's records and there is an echocardiogram with no evidence of PFO. The cardiology clinical consultant neurologist Dr. Zheng states she feels that the patient's presentation today is most consistent with seizure and she would recommend increasing his Keppra from current levels to 750 mg twice daily. She states that he is stable for discharge back to rehabilitation facility. Labs reveal improvement of patients known anemia. He remains improved. Lab Data Lab results reviewed: Yes I reviewed the patient's lab results. Laboratory Results - last 24 hr 06/05/18 06/05/18 06/05/18 16:17 16:17 16:17 WBC 3.69 L RBC 2.53 L Hgb 8.0 L Hct 23.4 L MCV 92.5 MCH 31.6 MCHC 34.2 RDW 14.3 H Plt Count 123 L MPV 8.7 Immature Gran % 0.0 Neutrophils % 62.9 Lymphocytes % 20.1 Monocytes % 12.2 Eosinophils % 4.3 Basophils % 0.5 Absolute Neutrophils 2.32 Absolute Lymphocytes 0.74 L Absolute Monocytes 0.45 Absolute Eosinophils 0.16 Absolute Basophils 0.02 PT 9.9 INR 1.0 Sodium 136 Potassium 4.9 Chloride 107 Carbon Dioxide 18.2 L Anion Gap 10.8 BUN 51 H Creatinine 3.54 H* Estimated GFR/1.73 m2 17.97 Glucose 103 H Calcium 7.4 L Total Bilirubin 0.4 AST 24 ALT 21 Alkaline Phosphatase 94 Total Protein 5.4 L Albumin 2.7 L HPI General Mode of arrival: EMS. Date/Time Provider Initiated Documentation: 06/05/18 15:38. Limitations to Documentation: no limitations. Information obtained by: patient and EMS. History of Present Illness 57 year old M presents to the emergency department with the chief complaint of Question left-sided weakness, now improved. Patient denies complaint., HPI Narrative: 57-year-old male known to me from a near fatal hemorrhagic out of hospital arrest. He recently had a fall with subsequent head injury and subarachnoid hemorrhage for which he was admitted to [facility] and discharged to local rehabilitation facility yesterday. He has no and anemia with hemoglobins in the 7 for which he is getting Procrit. Today, the patient referred due to question of change in behavior and left-sided weakness. Patient denies to me any weakness. He states he has not had any word finding. He states he feels good. No headache. No numbness or tingling. Related Data Home Medications Medication Instructions Recorded Confirmed hydralazine 1 tab PO BID tab-cap 11/09/12 06/05/18 levetiracetam [Keppra] 500 mg PO BID #180 11/09/12 06/05/18 tacrolimus [Prograf] 1 cap PO BID #0 04/04/14 06/05/18 mycophenolate mofetil [CellCept] 1 tab PO BID tab-cap 09/04/15 06/05/18 allopurinol 150 mg PO DAILY 02/16/16 06/05/18 metoprolol tartrate [Lopressor] 50 mg PO TID #270 tab 11/04/16 06/05/18 pantoprazole 40 mg PO DAILY #90 tab-cap 08/17/17 06/05/18 sodium bicarbonate 650 mg PO TID 08/18/17 06/05/18 diltiazem HCl [Cartia XT] 120 mg PO DAILY 08/19/17 06/05/18 losartan 25 mg PO QAM 08/19/17 06/05/18 acetaminophen [Mapap Extra 1,000 mg PO Q6H PRN PRN #30 tab 08/26/17 06/05/18 Strength] levothyroxine [Synthroid] 88 mcg PO DAILY #90 tab 10/08/17 06/05/18 amlodipine 2.5 mg PO DAILY 06/05/18 06/05/18 calcitriol 0.5 mcg PO Q OTHER DAY 06/05/18 06/05/18 cephalexin [Keflex] 500 mg PO DAILY AM 06/05/18 06/05/18 epoetin kerry 1 ml SUBCUT QWEEK 06/05/18 06/05/18 levetiracetam 250 mg PO HS 06/05/18 06/05/18 multivitamin [Multiple Vitamins] 1 tab PO DAILY 06/05/18 06/05/18 sennosides-docusate sodium [Senna 2 tab PO DAILY 06/05/18 06/05/18 Plus] Previous Rx's Medication Instructions Recorded tacrolimus [Prograf] 1 cap PO BID #0 04/04/14 pantoprazole 40 mg PO DAILY #90 tab-cap 08/17/17 acetaminophen [Mapap Extra 1,000 mg PO Q6H PRN PRN #30 tab 08/26/17 Strength] levothyroxine [Synthroid] 88 mcg PO DAILY #90 tab 10/08/17 Allergies Allergy/AdvReac Type Severity Reaction Status Date / Time hydrochlorothiazide Allergy Mild Unverified 06/05/18 15:58 benazepril Allergy Unknown Unverified 06/05/18 15:58 codeine Allergy Unknown Unverified 06/05/18 15:58 pollen extracts AdvReac Mild chronic Unverified 06/05/18 15:58 rhinitis General Stated Complaint: AMS/LOC SANJUANA: 3 Review of Systems Review of Systems GEN: awake, alert, oriented 3. Pleasant, well groomed, interactive. HEAD: Normocephalic, left face and periorbital ecchymosis. There are sutures in place over a small facial laceration of the left [employer] ENT: Mucous membranes moist, oropharynx unremarkable, External ear exam unremarkable EYES: PERRL, EOMI NECK: Full ROM, no JEZ, no menigismus CHEST/RESP: Nontender, clear to auscultation bilateral, no wheeze/rhonchi/rales CARDIOVASCULAR: RRR, no murmur, rub clementina. 2+ Rad pulse bilateral ABDOMEN: Soft, nontender, no mass. +Bowel sounds EXT: Full ROM of both upper and lower extremities bilaterally. Capillary refill is less than 2 seconds. Sensation is intact throughout. The left upper extremity has numerous surgical scarring and 1-2+ edema. Neuro: Grossly normal neurologic exam, conversant, interactive. Speech fluent. Psych: Speech fluent, thoughts congruent, affect normal Course Vital Signs Temperature 36.6 C 06/05/18 15:51 Pulse 50 L 06/05/18 15:51 Respiratory Rate 16 06/05/18 15:51 Blood Pressure 176/97 H 06/05/18 15:51 Pulse Oximetry 97 06/05/18 15:51 Temperature 36.6 C 06/05/18 15:51 Temperature Source Skin 06/05/18 15:51 Pulse 50 L 06/05/18 15:51 Respiratory Rate 16 06/05/18 15:51 Blood Pressure 176/97 H 06/05/18 15:51 Pulse Oximetry 97 06/05/18 15:51 Oxygen Delivery Method Room Air 06/05/18 15:51 Oxygen Flow Rate 0 06/05/18 15:51 Pain Level 0 06/05/18 15:51
--- NOTE | 2018-06-05 16:01 | ED.GENADUL_ITS ---
Discharge Plan Disposition Patient Disposition: [facility] (LEVEL 2) [facility] Condition: Improving Discharge Details Chief Complaint: AMS/LOC Clinical Impression: Seizure after head injury Reason For Visit: NINOSKA Primary Care Provider: Carroll Fuentes ED Provider: Kurt Sandy Home Meds and New Rx's Prescriptions: Continue hydralazine 50 MG tablet 1 tab PO BID RF: 0 levetiracetam [Keppra] 1,000 MG tablet 500 mg PO BID Qty: 180 RF: 4 mycophenolate mofetil [CellCept] 250 MG capsule 1 tab PO BID RF: 0 metoprolol tartrate [Lopressor] 50 MG tablet 50 mg PO TID Qty: 270 RF: 3 pantoprazole 40 MG tablet,delayed release (DR/EC) 40 mg PO DAILY Qty: 90 RF: 1 sodium bicarbonate 650 MG tablet 650 mg PO TID RF: 0 losartan 25 MG tablet 25 mg PO QAM RF: 0 diltiazem HCl [Cartia XT] 120 MG capsule,extended release 24hr 120 mg PO DAILY RF: 0 Warfarin Sodium 5 MG tablet 0 - 7.5 mg PO as directed Qty: 180 RF: 3 levothyroxine [Synthroid] 88 MCG tablet 88 mcg PO DAILY Qty: 90 RF: 3 tacrolimus [Prograf] 1 MG capsule 1 cap PO BID Qty: 0 RF: 0 allopurinol 100 MG tablet 150 mg PO DAILY RF: 0 acetaminophen [Mapap Extra Strength] 500 MG tablet 1,000 mg PO Q6H PRN PRNQty: 30 RF: 0 multivitamin [Multiple Vitamins] Tablet 1 tab PO DAILY RF: 0 sennosides-docusate sodium [Senna Plus] 8.6-50 mg Tablet 2 tab PO DAILY RF: 0 amlodipine 2.5 mg Tablet 2.5 mg PO DAILY RF: 0 levetiracetam 250 mg Tablet 250 mg PO HS RF: 0 cephalexin [Keflex] 500 mg Capsule 500 mg PO DAILY AM RF: 0 calcitriol 0.5 mcg Capsule 0.5 mcg PO Q OTHER DAY RF: 0 epoetin kerry 20,000 unit/2 mL Solution 1 ml subcut QWEEK RF: 0 Discharge Instructions Additional Instructions: I discussed your case today with both the neurosurgery and neurology departments at [facility]. You had a repeat CT scan of the head. Dr. Zheng from neurology recommends that you increase your Keppra to 750 mg twice daily from its current dosing levels. Return to the emergency department for recurrent seizure, recurrent change in mental status, or any other acute concerns. Medical Decision Making 57-year-old male who is currently convalescing in local rehabilitation facility after discharge from [facility] yesterday following subarachnoid hemorrhage that did not require craniotomy. He is known to have recurrent anemia and chronic renal dysfunction status post transplant. Patient was noted at the rehabilitation facility today to have word finding difficulties, question of transient left arm weakness, question transient mental status changes. He was subsequent referred to the ER for further evaluation. Patient IV access established, repeat laboratories obtained, referred for CT images. The CT does reveal persistent small areas of petechial/subarachnoid hemorrhage in the right frontal lobe that are more pronounced than on the previous examination. There is some increased effacement of the sulci and gyri in the right parietal lobe. Images reviewed and case discussed with on-call [facility] Neurosurgery, who feel there is no significant change from their last CT on 06/04. GIven the patients history of DVT and no current anticoagulation, must consider DVT and possible embolic CVA. Case discussed with on-call Neurology at [facility] who reviewed the patient's records and there is an echocardiogram with no evidence of PFO. The executive talent acquisition consultant neurologist Dr. Zheng states she feels that the patient's presentation today is most consistent with seizure and she would recommend increasing his Keppra from current levels to 750 mg twice daily. She states that he is stable for discharge back to rehabilitation facility. Labs reveal improvement of patients known anemia. He remains improved. Lab Data Lab results reviewed: Yes I reviewed the patient's lab results. Laboratory Results - last 24 hr 06/05/18 06/05/18 06/05/18 16:17 16:17 16:17 WBC 3.69 L RBC 2.53 L Hgb 8.0 L Hct 23.4 L MCV 92.5 MCH 31.6 MCHC 34.2 RDW 14.3 H Plt Count 123 L MPV 8.7 Immature Gran % 0.0 Neutrophils % 62.9 Lymphocytes % 20.1 Monocytes % 12.2 Eosinophils % 4.3 Basophils % 0.5 Absolute Neutrophils 2.32 Absolute Lymphocytes 0.74 L Absolute Monocytes 0.45 Absolute Eosinophils 0.16 Absolute Basophils 0.02 PT 9.9 INR 1.0 Sodium 136 Potassium 4.9 Chloride 107 Carbon Dioxide 18.2 L Anion Gap 10.8 BUN 51 H Creatinine 3.54 H* Estimated GFR/1.73 m2 17.97 Glucose 103 H Calcium 7.4 L Total Bilirubin 0.4 AST 24 ALT 21 Alkaline Phosphatase 94 Total Protein 5.4 L Albumin 2.7 L HPI General Mode of arrival: EMS . Date/Time Provider Initiated Documentation: 06/05/18 15:38 . Limitations to Documentation: no limitations . Information obtained by: patient and EMS . History of Present Illness 57 year old M presents to the emergency department with the chief complaint of Question left-sided weakness, now improved. Patient denies complaint., HPI Narrative: 57-year-old male known to me from a near fatal hemorrhagic out of hospital arrest. He recently had a fall with subsequent head injury and subarachnoid hemorrhage for which he was admitted to [facility] and discharged to local rehabilitation facility yesterday. He has no and anemia with hemoglobins in the 7 for which he is getting Procrit. Today, the patient referred due to question of change in behavior and left- sided weakness. Patient denies to me any weakness. He states he has not had any word finding. He states he feels good. No headache. No numbness or tingling. Related Data Home Medications Medication Instructions Recorded Confirmed hydralazine 1 tab PO BID tab-cap 11/09/12 06/05/18 levetiracetam [Keppra] 500 mg PO BID #180 11/09/12 06/05/18 tacrolimus [Prograf] 1 cap PO BID #0 04/04/14 06/05/18 mycophenolate mofetil [CellCept] 1 tab PO BID tab-cap 09/04/15 06/05/18 allopurinol 150 mg PO DAILY 02/16/16 06/05/18 metoprolol tartrate [Lopressor] 50 mg PO TID #270 tab 11/04/16 06/05/18 pantoprazole 40 mg PO DAILY #90 tab-cap 08/17/17 06/05/18 sodium bicarbonate 650 mg PO TID 08/18/17 06/05/18 diltiazem HCl [Cartia XT] 120 mg PO DAILY 08/19/17 06/05/18 losartan 25 mg PO QAM 08/19/17 06/05/18 acetaminophen [Mapap Extra 1,000 mg PO Q6H PRN PRN #30 tab 08/26/17 06/05/18 Strength] levothyroxine [Synthroid] 88 mcg PO DAILY #90 tab 10/08/17 06/05/18 amlodipine 2.5 mg PO DAILY 06/05/18 06/05/18 calcitriol 0.5 mcg PO Q OTHER DAY 06/05/18 06/05/18 cephalexin [Keflex] 500 mg PO DAILY AM 06/05/18 06/05/18 epoetin kerry 1 ml SUBCUT QWEEK 06/05/18 06/05/18 levetiracetam 250 mg PO HS 06/05/18 06/05/18 multivitamin [Multiple Vitamins] 1 tab PO DAILY 06/05/18 06/05/18 sennosides-docusate sodium [Senna 2 tab PO DAILY 06/05/18 06/05/18 Plus] Previous Rx's Medication Instructions Recorded tacrolimus [Prograf] 1 cap PO BID #0 04/04/14 pantoprazole 40 mg PO DAILY #90 tab-cap 08/17/17 acetaminophen [Mapap Extra 1,000 mg PO Q6H PRN PRN #30 tab 08/26/17 Strength] levothyroxine [Synthroid] 88 mcg PO DAILY #90 tab 10/08/17 Allergies Allergy/AdvReac Type Severity Reaction Status Date / Time hydrochlorothiazide Allergy Mild Unverified 06/05/18 15:58 benazepril Allergy Unknown Unverified 06/05/18 15:58 codeine Allergy Unknown Unverified 06/05/18 15:58 pollen extracts AdvReac Mild chronic Unverified 06/05/18 15:58 rhinitis General Stated Complaint: AMS/LOC SANJUANA: 3 Review of Systems Review of Systems GEN: awake, alert, oriented 3. Pleasant, well groomed, interactive. HEAD: Normocephalic, left face and periorbital ecchymosis. There are sutures in place over a small facial laceration of the left yazidism ENT: Mucous membranes moist, oropharynx unremarkable, External ear exam unremarkable EYES: PERRL, EOMI NECK: Full ROM, no JEZ, no menigismus CHEST/RESP: Nontender, clear to auscultation bilateral, no wheeze/rhonchi/rales CARDIOVASCULAR: RRR, no murmur, rub clementina. 2+ Rad pulse bilateral ABDOMEN: Soft, nontender, no mass. +Bowel sounds EXT: Full ROM of both upper and lower extremities bilaterally. Capillary refill is less than 2 seconds. Sensation is intact throughout. The left upper extremity has numerous surgical scarring and 1-2+ edema. Neuro: Grossly normal neurologic exam, conversant, interactive. Speech fluent. Psych: Speech fluent, thoughts congruent, affect normal Course Vital Signs Temperature 36.6 C 06/05/18 15:51 Pulse 50 L 06/05/18 15:51 Respiratory Rate 16 06/05/18 15:51 Blood Pressure 176/97 H 06/05/18 15:51 Pulse Oximetry 97 06/05/18 15:51 Temperature 36.6 C 06/05/18 15:51 Temperature Source Skin 06/05/18 15:51 Pulse 50 L 06/05/18 15:51 Respiratory Rate 16 06/05/18 15:51 Blood Pressure 176/97 H 06/05/18 15:51 Pulse Oximetry 97 06/05/18 15:51 Oxygen Delivery Method Room Air 06/05/18 15:51 Oxygen Flow Rate 0 06/05/18 15:51 Pain Level 0 06/05/18 15:51
[2018-06-05 16:25] LABS: Absolute Basophil Count 0.02 k/cumm (0.0-0.2); Absolute Eosinophil Count 0.16 k/cumm (0.0-0.7); Absolute Lymphocyte Count 0.74 k/cumm (1.2-3.4); Absolute Monocyte Count 0.45 k/cumm (0.11-0.7); Absolute Neutrophil Count 2.32 k/cumm (1.2-6.7); Basophils % 0.5; Eosinophils % 4.3; HCT 23.4 % (40.0-50.0); Lymphocytes % 20.1; Mean Corp. HGB Concentration 34.2 g/dL (32.0-36.0); Mean Corpuscular Hemoglobin 31.6 pg (27.0-33.0); Mean Corpuscular Volume 92.5 fL (80-95); Mean Platelet Volume 8.7 fL (8.0-11.0); Monocytes % 12.2; Neutrophils % 62.9; Platelet Count 123 x1000/uL (130-400); RBC 2.53 m/cumm (4.50-6.00); RBC Distribution Width 14.3 % (11.8-14.1); White Blood Cell Count 3.69 k/cumm (4.4-10.8)
[2018-06-05 16:35] LABS: Prothrombin Time 9.9 sec (9.3-10.8)
[2018-06-05 16:38] LABS: ALT 21 U/L (12-78); AST 24 U/L (15-37); Albumin 2.7 g/dL (3.4-5.0); Alkaline Phosphatase 94 U/L (46-116); Anion Gap 10.8 mmol/L (3-11); BUN 51 mg/dL (7-18); Bilirubin, Total 0.4 mg/dL (0.2-1.0); CO2 18.2 mmol/L (21.0-32.0); CREATININE 3.54 mg/dL (0.70-1.30); Calcium 7.4 mg/dL (8.5-10.1); Chloride 107 mmol/L (98-107); Estimated GFR 17.97 (mL/min/1.73m2); Glucose 103 mg/dL (70-100); Potassium 4.9 mmol/L (3.5-5.1); Sodium 136 mmol/L (136-145); Total Protein 5.4 g/dL (6.4-8.2)
--- NOTE | 2018-06-05 16:46 | DI.VRAD_ITS ---
EXAM: CT Head Without Intravenous Contrast EXAM DATE/TIME: 06/05/2018 4:31 PM CLINICAL HISTORY: 57 years old, male; Signs and symptoms; Weakness, extremity; Left; Patient HX: Question l weakness S/P sah; Per PT: Seizure this afternoon TECHNIQUE: Axial computed tomography images of the head/brain without intravenous contrast. Coronal and sagittal reformatted images were created and reviewed. COMPARISON: CT HEAD CERVICAL SPINE WO 06/02/2018 1:14 PM FINDINGS: Multiple small areas of petechial hemorrhage and possibly some slight subarachnoid hemorrhage in the right frontal parietal junction minimally more prominent than on the prior examination. Mild effacement of the sulci and gyri in the right frontal and parietal lobes which was present on the prior examination but is also slightly more pronounced on the current study. No other significant mass effect. Periventricular deep white matter disease. No intraventricular hemorrhage. Periventricular deep white matter disease consistent with small vessel ischemia unchanged from the prior study. IMPRESSION: 1. Persistent small areas of petechial and possibly subarachnoid hemorrhage in the right frontal parietal junction slightly more pronounced than on the prior examination. There is also slight increase in effacement of the sulci and gyri in the right parietal lobe. THIS REPORT CONTAINS FINDINGS THAT MAY BE CRITICAL TO PATIENT CARE. The findings were verbally communicated via telephone conference with LUNA MEDEIROS at 4:45 PM EDGARDOon 06/05/2018The findings were acknowledged and understood. Dictated and Authenticated by: Taj Salinas MD. Ordering:GERMÁN CARRASCO MD
== END 2018-06-05 19:43 | disposition intermediate care facility (04) ==
PROVIDERS: Emergency Provider Emergency Medicine; PCP Emergency Medicine
DX: R56.1 Post traumatic seizures (principal); S09.90XD Unspecified injury of head, subsequent encounter; S06.6X9D Traumatic subarachnoid hemorrhage with loss of consciousness of unspecified duration, subsequent encounter; W10.8XXD Fall (on) (from) other stairs and steps, subsequent encounter; I12.0 Hypertensive chronic kidney disease with stage 5 chronic kidney disease or end stage renal disease; N18.6 End stage renal disease; Z99.2 Dependence on renal dialysis; Z94.0 Kidney transplant status
CPT/HCPCS: 36415; 80053; 99284; 70450; 85025; 85610; 99281

== ENCOUNTER 2018-06-06 09:01 | Outpatient (REF) | payer MEDICAID, SELFPAY ==
[2018-06-06 10:24] LABS: Abs Immature Grans 0.01 k/cumm (0.0-0.09); Absolute Basophil Count 0.02 k/cumm (0.0-0.2); Absolute Eosinophil Count 0.15 k/cumm (0.0-0.7); Absolute Lymphocyte Count 0.63 k/cumm (1.2-3.4); Absolute Monocyte Count 0.33 k/cumm (0.11-0.7); Absolute Neutrophil Count 2.05 k/cumm (1.2-6.7); Basophils % 0.6; Eosinophils % 4.7; HCT 22.9 % (40.0-50.0); HGB 7.7 g/dL (13.5-17.5); Immature Grans % 0.3; Lymphocytes % 19.7; Mean Corp. HGB Concentration 33.6 g/dL (32.0-36.0); Mean Corpuscular Hemoglobin 31.3 pg (27.0-33.0); Mean Corpuscular Volume 93.1 fL (80-95); Mean Platelet Volume 9.5 fL (8.0-11.0); Monocytes % 10.3; Neutrophils % 64.4; Platelet Count 115 x1000/uL (130-400); RBC 2.46 m/cumm (4.50-6.00); RBC Distribution Width 14.3 % (11.8-14.1); White Blood Cell Count 3.19 k/cumm (4.4-10.8)
[2018-06-06 10:34] LABS: Iron 66 ug/dL (50-175); Total Iron Binding Capacity 180 ug/dL (250-450); Transferrin Sat 37 % (20-55)
[2018-06-06 11:00] LABS: Anion Gap 13.3 mmol/L (3-11); BUN 55 mg/dL (7-18); CO2 17.7 mmol/L (21.0-32.0); Calcium 7.6 mg/dL (8.5-10.1); Chloride 108 mmol/L (98-107); Estimated GFR 16.51 (mL/min/1.73m2); Ferritin 115 ng/mL (8-388); Glucose 90 mg/dL (70-100); Potassium 4.8 mmol/L (3.5-5.1); Sodium 139 mmol/L (136-145)
[2018-06-06 11:14] LABS: CREATININE 3.81 mg/dL (0.70-1.30)
[2018-06-07 12:57] LABS: Transferrin 130 mg/dL (201-352)
== END 2018-06-06 09:21 ==
LOC: LBN 09:01
PROVIDERS: PCP Emergency Medicine; Visit Provider Family Medicine
DX: D64.9 Anemia, unspecified (principal); I10 Essential (primary) hypertension; I12.0 Hypertensive chronic kidney disease with stage 5 chronic kidney disease or end stage renal disease; Z94.0 Kidney transplant status
CPT/HCPCS: 80048; 82728; 83540; 83550; 84466; 85025

== ENCOUNTER 2018-06-18 13:22 | Outpatient (REF) | payer MEDICAID, SELFPAY ==
[2018-06-18 13:51] LABS: HCT 26.4 % (40.0-50.0); HGB 8.6 g/dL (13.5-17.5)
== END 2018-06-18 13:42 ==
LOC: LBN 13:22
PROVIDERS: PCP Emergency Medicine; Visit Provider Family Medicine
DX: D64.9 Anemia, unspecified (principal)
CPT/HCPCS: 85014; 85018

== ENCOUNTER 2018-07-29 12:56 | Outpatient (CLI) | payer MEDICAID, SELFPAY ==
--- NOTE | 2018-07-29 12:54 | DI.RAD_ITS ---
SYMPTOMS/DIAGNOSIS: COUGH, WHEEZE, BIBASILAR CRACKLES, ? PNEUMONIA VS CHF CHEST: Two views. Comparison 09/04/15. Comparison CT scan of the chest, abdomen and pelvis from 04/06/18. There is an infiltrate in the left lung base medially. There also appears to be a small left pleural effusion. Increased lung markings are also seen in the right lung base medially. The lungs are hyperinflated consistent with underlying COPD. The heart size and pulmonary vasculature appear stable. No pneumothorax is identified. Degenerative changes are seen in the spine. IMPRESSION: 1. Bilateral basilar infiltrates left greater than right suspicious for pneumonia. 2. Small left pleural effusion.
[2018-07-29 14:43] LABS: HCT 26.5 % (40.0-50.0); HGB 8.5 g/dL (13.5-17.5); Mean Corp. HGB Concentration 32.1 g/dL (32.0-36.0); Mean Corpuscular Hemoglobin 28.4 pg (27.0-33.0); Mean Corpuscular Volume 88.6 fL (80-95); Platelet Count 110 x1000/uL (130-400); RBC 2.99 m/cumm (4.50-6.00); RBC Distribution Width 17.1 % (11.8-14.1); White Blood Cell Count 3.51 k/cumm (4.4-10.8)
[2018-07-29 14:45] LABS: Bilirubin Negative (Negative); Blood Trace-intact (Negative); Clarity Sl Cloudy; Glucose 100 mg/dL (Negative); Ketones Negative (Negative); Leukocyte Esterase Negative (Negative); Nitrite Negative (Negative); Urobilinogen 0.2 EU/dL (Up TO 0.2)
[2018-07-29 15:06] LABS: Cholesterol 203 mg/dL (50-200)
[2018-07-29 15:08] LABS: ALT 23 U/L (12-78); AST 22 U/L (15-37); Albumin 2.9 g/dL (3.4-5.0); Alkaline Phosphatase 122 U/L (46-116); Anion Gap 19.5 mmol/L (3-11); Bilirubin, Total 0.4 mg/dL (0.2-1.0); CO2 18.5 mmol/L (21.0-32.0); Calcium 7.5 mg/dL (8.5-10.1); Chloride 112 mmol/L (98-107); Glucose 141 mg/dL (70-100); Magnesium 2.3 mg/dL (1.8-2.4); PHOSPHORUS 7.7 mg/dL (2.6-4.7); Potassium 4.8 mmol/L (3.5-5.1); Sodium 150 mmol/L (136-145); Total Protein 5.5 g/dL (6.4-8.2); Uric Acid 6.5 mg/dL (3.5-7.2)
[2018-07-29 15:13] LABS: BUN 96 mg/dL (7-18); CREATININE 11.12 mg/dL (0.70-1.30)
[2018-07-29 15:15] LABS: COMMENT (LAB VIEW ONLY) 84.61 mg/dL
[2018-07-29 15:26] LABS: PROTEIN > 1000.0 mg/dL
[2018-07-29 15:33] LABS: Prothrombin Time 9.7 sec (9.3-11.0)
[2018-07-29 16:07] LABS: Epithelial Cells Rare HPF (Negative); Other Cells Rare Renal (Negative); RBC 20-50 (0-2)
[2018-07-29 16:08] LABS: Bacteria Moderate HPF (Negative); Crystals Moderate Amorphous HPF (Negative); Mucus Negative (Negative)
[2018-07-29 16:10] LABS: C & S Indicated? Yes
[2018-07-30 12:45] LABS: Tacrolimus 5.1 ng/ml
== END 2018-07-29 13:16 ==
PROVIDERS: PCP Emergency Medicine; Visit Provider Family Medicine
DX: R05 Cough (principal); R07.9 Chest pain, unspecified; R06.2 Wheezing; R91.8 Other nonspecific abnormal finding of lung field; Z86.718 Personal history of other venous thrombosis and embolism; Z79.01 Long term (current) use of anticoagulants; Z94.0 Kidney transplant status; Z79.899 Other long term (current) drug therapy
CPT/HCPCS: 36415; 80053; 80197; 85027; 71046; 81003; 81015; 82465; 82565; 83735; 84100; 84156; 84550; 85610; 87086

== ENCOUNTER 2018-09-27 01:18 | Outpatient (CLI) | payer MEDICAID, SELFPAY ==
--- NOTE | 2018-09-27 10:33 | DI.CT_ITS ---
SYMPTOM/DIAGNOSIS: F/U SUBDURAL HEMATOMA, S06.5X9A NONCONTRAST HEAD CT: The study was carried out without contrast enhancement and is compared with a previous study dating back to 06/05/18. There is no evidence of an intra/extra- axial hemorrhage, mass or fluid collection. The findings involving the right frontal lobe on the prior examination have resolved and there is no evidence of a subdural or subarachnoid hemorrhage. Regions of diminished absorption in the frontoparietal white matter would be consistent with small vessel disease. The ventricles are normal. The midline is preserved. Mucoperiosteal thickening involving the floor of the left maxillary antrum is demonstrated. Also there is some mucoperiosteal thickening involving the ethmoids. The frontal and right maxillary and sphenoid sinuses are unremarkable. There is no evidence of a mastoid effusion. SUMMARY: There is no demonstrated acute abnormality. Resorption of a right subdural and subarachnoid hemorrhage is demonstrated when compared with prior images dating back to 06/05/18.
== END 2018-09-27 01:38 ==
PROVIDERS: PCP Emergency Medicine; Visit Provider Neurological Surgery
DX: S06.5X9D Traumatic subdural hemorrhage with loss of consciousness of unspecified duration, subsequent encounter (principal)
CPT/HCPCS: 70450

== ENCOUNTER 2018-12-17 14:26 | Emergency (ER) | payer MEDICAID, SELFPAY ==
[2018-12-17] VITALS (55 sets, daily range): BP systolic 96–124; BP diastolic 61–85; PULSE 54–78; RESP 8–25; TEMP 36.7–36.8; O2SAT 92–98
--- NOTE | 2018-12-17 14:46 | DI.RAD_ITS ---
SYMPTOM/DIAGNOSIS: S/P FALL FRONTAL AND LATERAL CHEST: Comparison is made with 07/29/18. Heart size and pulmonary vasculature are within normal limits. Plate atelectasis is seen in the right lung base. No focal consolidating infiltrate, effusion or pneumothorax is identified. Since the prior examination, a right sided central venous catheter has been placed, the tip is seen at the junction of the superior vena cava and right atrium. The osseous structures appear intact. IMPRESSION: No acute pulmonary process.
--- NOTE | 2018-12-17 14:46 | DI.CT_ITS ---
SYMPTOM/DIAGNOSIS: STUMBLED AND FELL WALKING NONCONTRAST HEAD CT: Comparison is made with 09/27/18. There is mild global cerebral atrophy. There are areas of decreased attenuation in the white matter consistent with small vessel ischemic disease. No evidence of an acute intracranial hemorrhage, infarct, midline shift or mass effect is identified. There is again seen an area of encephalomalacia involving the medial aspect of the left temporal lobe which is unchanged. There is mucosal thickening seen in the left maxillary sinus which has progressed since the prior examination. No fluid level is seen. The remaining visualized paranasal sinuses are clear. The mastoid air cells are well pneumatized. The calvarium is intact. IMPRESSION: 1. No acute intracranial process. 2. Development of left maxillary sinus disease.
--- NOTE | 2018-12-17 14:50 | W.ED.GENAD ---
Discharge Plan Disposition Patient Disposition: HOME Condition: Stable Discharge Details Chief Complaint: AMS/LOC Clinical Impression: Fall, ESRD (end stage renal disease) on dialysis Primary Care Provider: Carroll Fuentes ED Provider: Evon Fernandse Home Meds and New Rx's Prescriptions: Continued amlodipine 10 mg tablet 10 mg PO DAILY Qty: 90 RF: 4 carvedilol [Coreg] 12.5 mg tablet 12.5 mg PO BID Qty: 180 RF: 3 diltiazem HCl [Cartia XT] 120 mg capsule,extended release 24hr 120 mg PO DAILY Qty: 90 RF: 3 levothyroxine 100 mcg capsule 100 mcg PO DAILY Qty: 90 RF: 3 losartan 100 mg tablet 100 mg PO DAILY Qty: 90 RF: 3 pantoprazole 20 mg tablet,delayed release (DR/EC) 20 mg PO DAILY Qty: 90 RF: 3 acetaminophen [Mapap Extra Strength] 500 mg tablet 1,000 mg PO Q6H PRN PRN (Reason: pain (scale score 1-3)) Qty: 30 RF: 8 allopurinol 100 mg tablet 150 mg PO DAILY Qty: 120 RF: 4 hydralazine 50 mg tablet 50 mg PO BID Qty: 180 RF: 4 levetiracetam [Keppra] 1,000 mg tablet 500 mg PO BID Qty: 180 RF: 3 multivitamin [Multiple Vitamins] tablet 1 tab PO DAILY Qty: 90 RF: 3 tacrolimus [Prograf] 1 mg capsule 1 mg PO .COMPLEX Qty: 270 RF: 3 calcium carbonate [Tums] 200 mg calcium (500 mg) tablet,chewable 200 mg PO BID Qty: 180 RF: 3 aspirin 81 mg Tablet,Delayed Release (Dr/Ec) 81 mg PO DAILY RF: 0 guaifenesin [Mucinex] 600 mg Tablet Extended Release 12hr 600 mg PO Q12H RF: 0 Discharge Instructions Instructions: Fall Prevention (ED) Additional Instructions: Follow-up with your scheduled dialysis session on Wednesday. Follow-up with your primary care doctor next week for reevaluation. Return immediately to the emergency department if you develop any worsening or concerning symptoms. Discharge Data Discharge Date/Time-TO BE ENTERED AT DEPARTURE: 12/17/18 19:41 Discharge Physician: Evon Fernandes Medical Decision Making 58-year-old male with a history of hypertension, hyperlipidemia, seizures, end-stage renal disease on dialysis, cardiac arrest, subdural hematoma who presents for evaluation after 2 falls prior to arrival. EMS noted a blood pressure of 75/51. There was a report that there is possible LOC but patient denies this. Patient states he clearly remembers the incidents that occurred and denies any significant injury, LOC, vomiting, chest pain, dizziness or shortness of breath prior to the episode. Vitals on arrival within normal limits. Blood pressure 97/66. Patient appears nontoxic. He has no acute complaints. No evidence of trauma. C-spine/T-spine/L-spine nontender. Chest and abdomen nontender. No focal deficits. EKG notes a rate of 63, sinus and no acute ST findings. Considering patient's age and history will check screening labs to rule out electrolyte abnormality, urinalysis, CT head, chest x-ray. 1919 --labs and imaging reviewed and unremarkable. Normal white blood cell count. Creatinine 6.5, which is improved compared to his baseline. Normal electrolytes. Urinalysis notes 5-10 WBCs, patient denies any acute urinary complaints, urine culture sent. CT head and chest x-ray negative. Patient has remained hemodynamically stable. Blood pressure 120/64. Patient states he has felt well since his arrival and denies any complaints while being here. Patient states he would like to go back to [facility]. Patient instructed to follow-up with his scheduled dialysis on Wednesday and to return here with any worsening or new concerning symptoms. Medical Records Medical records reviewed: Yes I reviewed the patient's medical records. Imaging Data Radiologic Study: Radiologist's impression: CT Head Without Contrast EXAM DATE/TIME: 12/17/2018 2:49 PM CLINICAL HISTORY: 58 years old, male; Signs and symptoms; Walking, difficulty TECHNIQUE: Imaging protocol: Axial computed tomography images of the head without contrast. Coronal and sagittal reformatted images were created and reviewed. COMPARISON: CT HEAD WO 09/27/2018 10:30 AM FINDINGS: Chronic white matter changes of probable small vessel disease. No evidence of hemorrhage. No mass effect. No acute intracranial abnormality. Moderate chronic appearing left maxillary sinus disease. IMPRESSION: No evidence of acute intracranial process. Radiologic Study #2: Radiologist's impression: XR Chest, 2 Views EXAM DATE/TIME: 12/17/2018 2:49 PM CLINICAL HISTORY: 58 years old, male; Signs and symptoms; Other: Weakness TECHNIQUE: Imaging protocol: XR of the chest, 2 views. COMPARISON: CR XR CHEST 2V PA LATERAL 07/29/2018 1:28 PM FINDINGS: Mild diffuse interstitial lung scarring. Interval insertion of a right-sided central catheter with the tip projecting over the upper right atrium. No evidence of pneumothorax. No significant focal consolidation. No significant pleural effusion. IMPRESSION: 1. Insertion of central catheter without evidence of complication. 2. No definite evidence of acute cardiopulmonary disease. Lab Data Lab results reviewed: Yes I reviewed the patient's lab results. 12/17/18 18:35 Urine - Reflex from Ua Urine Culture - Pending Laboratory Tests Range/Units 12/17/18 12/17/18 12/17/18 14:57 14:57 18:35 WBC (4.4-10.8) k/cumm 4.56 RBC (4.50-6.00) m/cumm 3.55 L Hgb (13.5-17.5) g/dL 11.0 L Hct (40.0-50.0) % 33.2 L MCV (80-95) fL 93.5 MCH (27.0-33.0) pg 31.0 MCHC (32.0-36.0) g/dL 33.1 RDW (11.8-14.1) % 17.1 H Plt Count (130-400) x1000/uL 194 MPV (8.0-11.0) fL 8.5 Immature Gran % 0.2 Neutrophils % 55.6 Lymphocytes % 27.0 Monocytes % 13.4 Eosinophils % 3.1 Basophils % 0.7 Absolute Neutrophils (1.2-6.7) k/cumm 2.54 Absolute Lymphocytes (1.2-3.4) k/cumm 1.23 Absolute Monocytes (0.11-0.7) k/cumm 0.61 Absolute Eosinophils (0.0-0.7) k/cumm 0.14 Absolute Basophils (0.0-0.2) k/cumm 0.03 Sodium (136-145) mmol/L 137 Potassium (3.5-5.1) mmol/L 4.7 Chloride (98-107) mmol/L 99 Carbon Dioxide (21.0-32.0) mmol/L 28.6 Anion Gap (3-11) mmol/L 9.4 BUN (7-18) mg/dL 39 H Creatinine (0.70-1.30) mg/dL 6.50 H* Estimated GFR/1.73 m2 (mL/min/1.73m2) 8.88 Glucose (70-100) mg/dL 108 H Calcium (8.5-10.1) mg/dL 8.5 Magnesium (1.8-2.4) mg/dL 2.1 Total Bilirubin (0.2-1.0) mg/dL 0.6 AST (15-37) U/L 15 ALT (12-78) U/L 17 Alkaline Phosphatase (46-116) U/L 90 Troponin I (0.00-0.06) ng/mL < 0.02 Total Protein (6.4-8.2) g/dL 7.1 Albumin (3.4-5.0) g/dL 3.2 L Urine Color (Yellow) Yellow Urine Clarity Clear Urine pH (5-8) 7.0 Ur Specific [place] (1.005-1.025) 1.020 Urine Protein (Negative) mg/dL >=300 H Urine Ketones (Negative) mg/dL Trace H Urine Blood (Negative) Negative Urine Nitrite (Negative) Negative Urine Bilirubin (Negative) Small H Urine Urobilinogen (Up TO 0.2) EU/dL 0.2 Ur Leukocyte Esterase (Negative) Negative Urine RBC (0-2) Negative Urine WBC (0-5) HPF 5-10 Ur Epithelial Cells (Negative) HPF Negative Urine Crystals (Negative) HPF Negative Urine Bacteria (Negative) HPF Moderate Urine Casts (Negative) LPF Negative Urine Mucus (Negative) Heavy Urine Other (Negative) Negative Ur Culture Indicated? Yes Urine Glucose (Negative) mg/dL Negative ECG Data Attestation: I personally reviewed and interpreted this ECG (s) as follows: Interpretation: Rate of 63, sinus, no acute ST elevation or depression. QTc 426. QRS 96 HPI General Mode of arrival: ambulatory. Date/Time Provider Initiated Documentation: 12/17/18 14:27. Limitations to Documentation: no limitations. Information obtained by: patient. HPI Narrative: Patient is a 58-year-old male with history of hypertension, hyperlipidemia, seizures, end-stage renal disease on dialysis, cardiac arrest and subdural hematoma who presents with 2 falls prior to arrival. Patient states he was walking outside when he stumbled over his feet and fell to the ground. Patient states he got up and was walking and holding onto the side of the building and felt like he stumbled over his feet again and fell. He states he feels like both these incidences occurred due to tripping over his feet. He denies any injury, headache, dizziness, chest pain, shortness of breath, visual changes, vomiting or diarrhea. He does admit to a left-sided earache for the past week. He denies any loss of consciousness. He states he has been receiving dialysis for the past 6 months and last received yesterday. EMS noted that patient had hypotension with systolic blood pressure in the 70s. Related Data Home Medications Medication Instructions Recorded Confirmed amlodipine 10 mg tablet 10 mg PO DAILY #90 tab 08/25/18 12/17/18 carvedilol 12.5 mg tablet 12.5 mg PO BID #180 tab 08/25/18 12/17/18 diltiazem CD 120 mg 120 mg PO DAILY #90 cap 08/25/18 12/17/18 capsule,extended release 24 hr levothyroxine 100 mcg capsule 100 mcg PO DAILY #90 cap 08/25/18 12/17/18 losartan 100 mg tablet 100 mg PO DAILY #90 tab 08/25/18 12/17/18 pantoprazole 20 mg tablet,delayed 20 mg PO DAILY #90 tab 08/25/18 12/17/18 release acetaminophen 500 mg tablet 1,000 mg PO Q6H PRN PRN #30 tab 09/01/18 12/17/18 allopurinol 100 mg tablet 150 mg PO DAILY #120 tab 09/01/18 12/17/18 hydralazine 50 mg tablet 50 mg PO BID #180 tab-cap 09/01/18 12/17/18 levetiracetam 1,000 mg tablet 500 mg PO BID #180 tab 09/01/18 12/17/18 multivitamin tablet 1 tab PO DAILY #90 tab 09/01/18 12/17/18 tacrolimus 1 mg capsule 1 mg PO .COMPLEX #270 cap 10/04/18 12/17/18 calcium carbonate 200 mg calcium 200 mg PO BID #180 tab 12/16/18 12/17/18 (500 mg) chewable tablet aspirin 81 mg PO DAILY 12/17/18 12/17/18 guaifenesin [Mucinex] 600 mg PO Q12H 12/17/18 12/17/18 Previous Rx's Medication Instructions Recorded amlodipine 10 mg tablet 10 mg PO DAILY #90 tab 08/25/18 carvedilol 12.5 mg tablet 12.5 mg PO BID #180 tab 08/25/18 diltiazem CD 120 mg 120 mg PO DAILY #90 cap 08/25/18 capsule,extended release 24 hr levothyroxine 100 mcg capsule 100 mcg PO DAILY #90 cap 08/25/18 losartan 100 mg tablet 100 mg PO DAILY #90 tab 08/25/18 pantoprazole 20 mg tablet,delayed 20 mg PO DAILY #90 tab 08/25/18 release acetaminophen 500 mg tablet 1,000 mg PO Q6H PRN PRN #30 tab 09/01/18 allopurinol 100 mg tablet 150 mg PO DAILY #120 tab 09/01/18 hydralazine 50 mg tablet 50 mg PO BID #180 tab-cap 09/01/18 levetiracetam 1,000 mg tablet 500 mg PO BID #180 tab 09/01/18 multivitamin tablet 1 tab PO DAILY #90 tab 09/01/18 tacrolimus 1 mg capsule 1 mg PO .COMPLEX #270 cap 10/04/18 calcium carbonate 200 mg calcium 200 mg PO BID #180 tab 12/16/18 (500 mg) chewable tablet Allergies Allergy/AdvReac Type Severity Reaction Status Date / Time hydrochlorothiazide Allergy Mild Verified 09/28/18 14:55 benazepril Allergy Unknown Verified 09/28/18 14:55 codeine Allergy Unknown Verified 09/28/18 14:55 pollen extracts AdvReac Mild chronic Verified 09/28/18 14:55 rhinitis General Stated Complaint: AMS/LOC [place]: 3 Review of Systems Review of Systems All systems reviewed & are unremarkable except as noted in HPI and below Constitutional Reports as per HPI, Denies chills and Denies fever(s) Eyes Denies blurry vision ENT Denies dizziness, Denies sore throat and Denies throat swelling Cardiovascular Denies chest pain and Denies dyspnea Respiratory Denies cough and Denies dyspnea Gastrointestinal Denies abdominal pain, Denies diarrhea and Denies vomiting Genitourinary Denies hematuria and Denies dysuria Musculoskeletal Denies back pain and Denies numbness Integumentary/Breasts Denies lesions and Denies rash Neurologic Denies dizziness, Denies focal weakness and Denies numbness Allergic/Immunologic Denies throat swelling [facility] Medical History Hypotension (Chronic 03/31/14) Visit for wound check (Chronic) Renal failure, unspecified (Chronic) Subdural hematoma (Chronic) Dependence on renal dialysis (Chronic) Cardiac arrest (Chronic) Varicose veins of lower extremity (Chronic) 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) Polyp of colon (Chronic 05/24/12) Nevus, non-neoplastic (Chronic) Injury of head (Chronic 06/10/79) Gout (Chronic) Essential hypertension (Chronic) Basal cell carcinoma, face (Chronic 12/24/15) Anticoagulated on warfarin (Chronic) Allergic rhinitis (Chronic) Gastroenteritis (Chronic 03/31/14) End stage renal disease (Chronic 03/31/14) Epilepsy (Chronic) Personal history of traumatic brain injury (Chronic) Gout (Chronic) Hypertension (Chronic) Deep vein thrombosis (Chronic) Hypothyroidism (Chronic) Rosacea (Chronic) Left inguinal hernia (Chronic 03/31/14) Allergic rhinitis Chronic acquired lymphedema Cognitive impairment Gout H/O deep venous thrombosis H/O left inguinal hernia repair Hypertension IgA nephropathy Melanocytic nevi of trunk Personal history of immunosupression therapy Renal mass Right inguinal hernia Seizure disorder TBI (traumatic brain injury) Varicose veins of both lower extremities Venous insufficiency Surgical History Kidney transplant status (Chronic) Status post kidney transplant (Chronic) Colonoscopy - MAC (02/22/17) Nephrectomy Repair of inguinal hernia bunionectomy kidney transplant Family History Mother Diabetes Social History Smoking/Tobacco Use Status: Never Drug use: Never Do you feel safe at home: Yes Do you feel safe in your relationship?: Yes Exam Const General: cooperative, healthy appearing and no acute distress [facility] Head: normal to inspection, no palpable skull fracture, normocephalic and atraumatic Ears: hearing grossly normal bilaterally, external ears normal and TM's normal bilaterally General nose exam: external nose normal Face and sinus: normal facial exam Mouth: oral mucosae normal Throat: posterior oropharynx normal Eyes General: appearance normal, both eyes and all related structures Pupils: PERRL EOM: EOM intact bilaterally Neck Neck: normal visual inspection and No submandibular swelling Lymphatic: no lymphadenopathy noted Chest Chest: normal inspection of the chest and no tenderness Resp Effort & Inspection: normal respiratory effort and able to speak in complete sentences Auscultation: clear to auscultation bilaterally Cardio Rate: regular rate Rhythm: regular rhythm GI Inspection: normal to inspection Palpation: soft, not firm, not rigid and nontender Auscultation: normal bowel sounds Back/Spine/Pelvis Cervical Spine: No cervical spinal tenderness Thoracic/Lumbar Spine: thoracic and lumbar spine normal to inspection, No thoracic spinal tenderness and No lumbar spinal tenderness Pelvis: no pain with anterior-posterior compression Skin General skin exam: no rashes or lesions noted Neuro General: alert, awake and oriented x3 Cranial Nerves: CN's II-XI intact bilaterally Cognition: normal cognition Speech: speech normal Motor: muscle tone normal throughout and strength 5/5 throughout Sensory Exam: no sensory deficits noted Extrem General: normal to inspection, full ROM, normal capillary refill, no calf tenderness bilaterally and no edema Other: No evidence of trauma to bilateral upper or lower extremities. No deformities noted. Psych Appearance: grossly normal Mental Status: mental status grossly normal Speech and Movement: speech and movement normal Affect: normal affect Course Vital Signs Temperature 98.2 F 12/17/18 14:29 Pulse 63 12/17/18 14:29 Respiratory Rate 15 12/17/18 14:29 Blood Pressure 97/66 L 12/17/18 14:29 Pulse Oximetry 97 12/17/18 14:29 Temperature 98.2 F 12/17/18 14:29 Temperature Source Skin 12/17/18 14:29 Pulse 63 12/17/18 14:29 Respiratory Rate 15 12/17/18 14:29 Blood Pressure 97/66 L 12/17/18 14:29 Blood Pressure Position Sitting 12/17/18 14:29 Pulse Oximetry 97 12/17/18 14:29 Oxygen Delivery Method Room Air 12/17/18 14:29 Oxygen Flow Rate 0 12/17/18 14:29
[2018-12-17 15:07] LABS: Abs Immature Grans 0.01 k/cumm (0.0-0.09); Absolute Basophil Count 0.03 k/cumm (0.0-0.2); Absolute Eosinophil Count 0.14 k/cumm (0.0-0.7); Absolute Lymphocyte Count 1.23 k/cumm (1.2-3.4); Absolute Monocyte Count 0.61 k/cumm (0.11-0.7); Absolute Neutrophil Count 2.54 k/cumm (1.2-6.7); Basophils % 0.7; Eosinophils % 3.1; HCT 33.2 % (40.0-50.0); Immature Grans % 0.2; Mean Corp. HGB Concentration 33.1 g/dL (32.0-36.0); Mean Corpuscular Volume 93.5 fL (80-95); Mean Platelet Volume 8.5 fL (8.0-11.0); Monocytes % 13.4; Neutrophils % 55.6; Platelet Count 194 x1000/uL (130-400); RBC 3.55 m/cumm (4.50-6.00); RBC Distribution Width 17.1 % (11.8-14.1); White Blood Cell Count 4.56 k/cumm (4.4-10.8)
[2018-12-17 15:27] LABS: ALT 17 U/L (12-78); AST 15 U/L (15-37); Albumin 3.2 g/dL (3.4-5.0); Alkaline Phosphatase 90 U/L (46-116); Anion Gap 9.4 mmol/L (3-11); BUN 39 mg/dL (7-18); Bilirubin, Total 0.6 mg/dL (0.2-1.0); CO2 28.6 mmol/L (21.0-32.0); Calcium 8.5 mg/dL (8.5-10.1); Chloride 99 mmol/L (98-107); Estimated GFR 8.88 (mL/min/1.73m2); Glucose 108 mg/dL (70-100); Magnesium 2.1 mg/dL (1.8-2.4); Potassium 4.7 mmol/L (3.5-5.1); Sodium 137 mmol/L (136-145); Total Protein 7.1 g/dL (6.4-8.2)
[2018-12-17 15:29] LABS: Troponin I < 0.02 ng/mL (0.00-0.06)
--- NOTE | 2018-12-17 15:39 | DI.VRAD_ITS ---
EXAM: CT Head Without Contrast EXAM DATE/TIME: 12/17/2018 2:49 PM CLINICAL HISTORY: 58 years old, male; Signs and symptoms; Walking, difficulty TECHNIQUE: Imaging protocol: Axial computed tomography images of the head without contrast. Coronal and sagittal reformatted images were created and reviewed. COMPARISON: CT HEAD WO 09/27/2018 10:30 AM FINDINGS: Chronic white matter changes of probable small vessel disease. No evidence of hemorrhage. No mass effect. No acute intracranial abnormality. Moderate chronic appearing left maxillary sinus disease. IMPRESSION: No evidence of acute intracranial process. Dictated and Authenticated by: Taj Salinas MD. Ordering:GRAY Barnard MD
--- NOTE | 2018-12-17 15:44 | DI.VRAD_ITS ---
EXAM: XR Chest, 2 Views EXAM DATE/TIME: 12/17/2018 2:49 PM CLINICAL HISTORY: 58 years old, male; Signs and symptoms; Other: Weakness TECHNIQUE: Imaging protocol: XR of the chest, 2 views. COMPARISON: CR XR CHEST 2V PA LATERAL 07/29/2018 1:28 PM FINDINGS: Mild diffuse interstitial lung scarring. Interval insertion of a right-sided central catheter with the tip projecting over the upper right atrium. No evidence of pneumothorax. No significant focal consolidation. No significant pleural effusion. IMPRESSION: 1. Insertion of central catheter without evidence of complication. 2. No definite evidence of acute cardiopulmonary disease. Dictated and Authenticated by: Taj Salinas MD. Ordering:GRAY Barnard MD
[2018-12-17 18:47] LABS: Bilirubin Small (Negative); Blood Negative (Negative); Clarity Clear; Glucose Negative (Negative); Ketones Trace mg/dL (Negative); Leukocyte Esterase Negative (Negative); Nitrite Negative (Negative); Urobilinogen 0.2 EU/dL (Up TO 0.2)
[2018-12-17 19:05] LABS: Bacteria Moderate HPF (Negative); C & S Indicated? Yes; Casts Negative LPF (Negative); Crystals Negative HPF (Negative); Epithelial Cells Negative HPF (Negative); Mucus Heavy (Negative); Other Cells Negative (Negative); RBC Negative (0-2)
== END 2018-12-17 19:41 | disposition home or self-care (01) ==
PROVIDERS: Emergency Provider Physician Assistant; PCP Emergency Medicine
DX: I95.9 Hypotension, unspecified (principal); I12.0 Hypertensive chronic kidney disease with stage 5 chronic kidney disease or end stage renal disease; N18.6 End stage renal disease; Z99.2 Dependence on renal dialysis; W01.0XXA Fall on same level from slipping, tripping and stumbling without subsequent striking against object, initial encounter; Z94.0 Kidney transplant status
CPT/HCPCS: 36415; 80053; 93005; 99285; 70450; 71046; 81003; 81015; 83735; 84484; 85025; 87086; 93010

== ENCOUNTER 2018-12-18 13:02 | Emergency (ER) | payer MEDICAID, SELFPAY ==
[2018-12-18 13:11] VITALS: BP 92/70; PULSE 59; RESP 12; O2SAT 96
--- NOTE | 2018-12-18 13:31 | DI.RAD_ITS ---
SYMPTOM/DIAGNOSIS: STUMBLING, R/O ACUTE DISEASE CHEST X-RAY: Frontal and lateral views. Comparison 12/17/18 Heart size and pulmonary vasculature are within normal limits. The dual lumen intravenous catheter is in good position. The tip is seen in the superior vena cava. Plate atelectatic changes are seen in the lung bases. No focal consolidating infiltrates or effusions are seen. The lungs appear hyperinflated suggesting underlying COPD. Age appropriate degenerative changes are seen in the spine. IMPRESSION: No acute pulmonary process.
--- NOTE | 2018-12-18 13:34 | DI.CT_ITS ---
SYMPTOM/DIAGNOSIS: STUMBLING, FALLS, R/O ACUTE PROCESS CT BRAIN: Noncontrast examination. Comparison 12/17/18 Age appropriate cerebral atrophy and small vessel ischemic disease is noted. There has been no evidence of acute intracranial hemorrhage, infarct, midline shift or mass effect. Left maxillary sinusitis is present. The bones appear intact. IMPRESSION: No acute abnormality.
--- NOTE | 2018-12-18 13:35 | ED.GENADUL_ITS ---
Discharge Plan Disposition Patient Disposition: HOME Condition: Stable Discharge Details Chief Complaint: AMS/LOC Clinical Impression: Gait instability, Falls Primary Care Provider: Carroll Fuentes ED Provider: Evon Fernandes Home Meds and New Rx's Prescriptions: Continued amlodipine 10 mg tablet 10 mg PO DAILY Qty: 90 RF: 4 carvedilol [Coreg] 12.5 mg tablet 12.5 mg PO BID Qty: 180 RF: 3 diltiazem HCl [Cartia XT] 120 mg capsule,extended release 24hr 120 mg PO DAILY Qty: 90 RF: 3 levothyroxine 100 mcg capsule 100 mcg PO DAILY Qty: 90 RF: 3 losartan 100 mg tablet 100 mg PO DAILY Qty: 90 RF: 3 pantoprazole 20 mg tablet,delayed release (DR/EC) 20 mg PO DAILY Qty: 90 RF: 3 acetaminophen [Mapap Extra Strength] 500 mg tablet 1,000 mg PO Q6H PRN PRN (Reason: pain (scale score 1-3)) Qty: 30 RF: 8 allopurinol 100 mg tablet 150 mg PO DAILY Qty: 120 RF: 4 hydralazine 50 mg tablet 50 mg PO BID Qty: 180 RF: 4 levetiracetam [Keppra] 1,000 mg tablet 500 mg PO BID Qty: 180 RF: 3 multivitamin [Multiple Vitamins] tablet 1 tab PO DAILY Qty: 90 RF: 3 tacrolimus [Prograf] 1 mg capsule 1 mg PO .COMPLEX Qty: 270 RF: 3 calcium carbonate [Tums] 200 mg calcium (500 mg) tablet,chewable 200 mg PO BID Qty: 180 RF: 3 aspirin 81 mg Tablet,Delayed Release (Dr/Ec) 81 mg PO DAILY RF: 0 guaifenesin [Mucinex] 600 mg Tablet Extended Release 12hr 600 mg PO Q12H RF: 0 Discharge Instructions Instructions: Fall Prevention (ED) Additional Instructions: Follow-up with your scheduled dialysis tomorrow. Follow-up with your primary care doctor this week for reevaluation. Return immediately to the emergency department if you develop any worsening or new concerning symptoms. Discharge Data Discharge Physician: Evon Fernandes Medical Decision Making 58-year-old male with history of end-stage renal disease on dialysis, seizures, gout, hypertension, hypothyroidism and traumatic brain injury who presents for stumbling while walking at [facility] this morning. Patient was seen here yesterday for similar complaint and found to have a negative work-up including labs, EKG, chest x-ray and CT head and was discharged back to [facility]. Nursing litharge supervisor from there today called to state that patient was noted to have a vacant stare and stumbling again while walking. Patient states that he does have a history of seizures and forgetfulness due to his traumatic brain injury but states he remembers walking around and stumbling. He denies any injury. He denies any acute complaints at this time. Vitals within normal limits on arrival. He appears nontoxic. No evidence of trauma. EKG notes a rate of 58, sinus and no acute ST findings. Due to patient's age and history, will check screening labs, urinalysis, EKG, chest x-ray, CT head and give small bolus IV fluids. 1540 --labs and imaging reviewed and unremarkable for significant acute findings. Normal white blood cell count. Creatinine 8.28 which is in correlation with patient's end-stage renal disease and due for dialysis tomorrow. Troponin negative. Urinalysis appears consistent with contamination. Chest x-ray and CT head negative for acute findings. Patient was able to ambulate here at his baseline and no falls or instability noted. Patient states he feels good without acute complaints and feels good to go back to [facility]. Nursing litharge supervisor called to update on findings. Instructed to follow-up with the primary care doctor and to return here if worse. Medical Records Medical records reviewed: Yes I reviewed the patient's medical records. Imaging Data Radiologic Study: Radiologist's impression: XR Chest, 2 Views EXAM DATE/TIME: 12/18/2018 1:34 PM CLINICAL HISTORY: 58 years old, male; Signs and symptoms; Other: Stumbling; Patient HX: Stumblinng TECHNIQUE: Imaging protocol: XR of the chest, 2 views. COMPARISON: CR XR CHEST 2V PA LATERAL 12/17/2018 3:22 PM FINDINGS: Right-sided dual lumen central catheter in good position with the tip projecting over the lower superior vena cava. The lung cohen are clear bilaterally. No focal pulmonary consolidation is present. The cardiac silhouette is within normal limits. The costophrenic angles are sharp. The bony structures appear unremarkable. IMPRESSION: No evidence of acute cardiopulmonary disease. Radiologic Study #2: Radiologist's impression: CT Head Without Contrast EXAM DATE/TIME: 12/18/2018 1:35 PM CLINICAL HISTORY: 58 years old, male; Signs and symptoms; Patient HX: Stumbling, falls, R/O acute process TECHNIQUE: Imaging protocol: Axial computed tomography images of the head without contrast. Coronal and sagittal reformatted images were created and reviewed. Radiation optimization: All CT scans at this facility use at least one of these dose optimization techniques: automated exposure control; mA and/or kV adjustment per patient size (includes targeted exams where dose is matched to clinical indication); or iterative reconstruction. COMPARISON: CT HEAD WO 12/17/2018 3:20 PM FINDINGS: Chronic white matter changes of probable small vessel disease. No evidence of hemorrhage. No mass effect. No acute intracranial abnormality. Chronic appearing left maxillary sinus disease. IMPRESSION: No evidence of acute intracranial process. Lab Data Lab results reviewed: Yes I reviewed the patient's lab results. Laboratory Tests Range/Units 12/18/18 12/18/18 12/18/18 13:50 13:50 15:15 WBC (4.4-10.8) k/cumm 4.97 RBC (4.50-6.00) m/cumm 3.44 L Hgb (13.5-17.5) g/dL 10.7 L Hct (40.0-50.0) % 31.8 L MCV (80-95) fL 92.4 MCH (27.0-33.0) pg 31.1 MCHC (32.0-36.0) g/dL 33.6 RDW (11.8-14.1) % 17.0 H Plt Count (130-400) x1000/uL 200 MPV (8.0-11.0) fL 8.5 Immature Gran % 0.2 Neutrophils % 57.7 Lymphocytes % 28.2 Monocytes % 9.9 Eosinophils % 3.4 Basophils % 0.6 Absolute Neutrophils (1.2-6.7) k/cumm 2.87 Absolute Lymphocytes (1.2-3.4) k/cumm 1.40 Absolute Monocytes (0.11-0.7) k/cumm 0.49 Absolute Eosinophils (0.0-0.7) k/cumm 0.17 Absolute Basophils (0.0-0.2) k/cumm 0.03 Sodium (136-145) mmol/L 135 L Potassium (3.5-5.1) mmol/L 5.1 Chloride (98-107) mmol/L 97 L Carbon Dioxide (21.0-32.0) mmol/L 27.0 Anion Gap (3-11) mmol/L 11.0 BUN (7-18) mg/dL 55 H D Creatinine (0.70-1.30) mg/dL 8.28 H* D Estimated GFR/1.73 m2 (mL/min/1.73m2) 6.72 Glucose (70-100) mg/dL 137 H Calcium (8.5-10.1) mg/dL 8.5 Magnesium (1.8-2.4) mg/dL 2.1 Total Bilirubin (0.2-1.0) mg/dL 0.5 AST (15-37) U/L 13 L ALT (12-78) U/L 15 Alkaline Phosphatase (46-116) U/L 87 Troponin I (0.00-0.06) ng/mL < 0.02 Total Protein (6.4-8.2) g/dL 6.8 Albumin (3.4-5.0) g/dL 3.1 L Urine Color (Yellow) Yellow Urine Clarity Clear Urine pH (5-8) 6.0 Ur Specific Willis (1.005-1.025) 1.020 Urine Protein (Negative) mg/dL >=300 H Urine Ketones (Negative) mg/dL Trace H Urine Blood (Negative) Negative Urine Nitrite (Negative) Negative Urine Bilirubin (Negative) Small H Urine Urobilinogen (Up TO 0.2) EU/dL 0.2 Ur Leukocyte Esterase (Negative) Negative Urine RBC (0-2) Negative Urine WBC (0-5) HPF 3-5 Ur Epithelial Cells (Negative) HPF Moderate Urine Crystals (Negative) HPF Negative Urine Bacteria (Negative) HPF Few Urine Casts (Negative) LPF Negative Urine Mucus (Negative) Moderate Urine Other (Negative) Few renal Ur Culture Indicated? No/sq. contamination Urine Glucose (Negative) mg/dL Negative ECG Data Attestation: I personally reviewed and interpreted this ECG (s) as follows: Interpretation: Rate of 58, sinus, no acute ST elevation or depression. QTc 430. QRS 100. HPI General Mode of arrival: wheelchair . Date/Time Provider Initiated Documentation: 12/18/18 13:09 . Limitations to Documentation: no limitations . Information obtained by: patient . HPI Narrative: Patient is a 58-year-old male with a history of seizures, gout, DVT, hypertension, hypothyroidism, end-stage renal disease on dialysis, TBI who presents with concern for being off balance from [facility] today. Patient was seen here yesterday for similar complaint and evaluated in the emergency department with negative work-up and was discharged back to [facility]. Patient states he had been doing fine overnight. He states today he was walking and felt like he was stumbling when he turned a corner and braced himself on the wall. He denies any dizziness, chest pain, shortness of breath, headache or visual changes prior to this. He denies any fall or injury. Currently he denies any fever, headache, neck pain, chest pain, shortness of breath, or abdominal pain. Patient states he ate this morning. Of note, Maria De Jesus Viera, litharge supervisor from [facility] and called this mo rning stating that staff noted that it seemed like he had a vacant stare today. She stated that he does have a history of seizures and this could be related to this. She stated that he otherwise was hemodynamically stable. Related Data Home Medications Medication Instructions Recorded Confirmed amlodipine 10 mg tablet 10 mg PO DAILY #90 tab 08/25/18 12/18/18 carvedilol 12.5 mg tablet 12.5 mg PO BID #180 tab 08/25/18 12/18/18 diltiazem CD 120 mg 120 mg PO DAILY #90 cap 08/25/18 12/18/18 capsule,extended release 24 hr levothyroxine 100 mcg capsule 100 mcg PO DAILY #90 cap 08/25/18 12/18/18 losartan 100 mg tablet 100 mg PO DAILY #90 tab 08/25/18 12/18/18 pantoprazole 20 mg tablet,delayed 20 mg PO DAILY #90 tab 08/25/18 12/18/18 release acetaminophen 500 mg tablet 1,000 mg PO Q6H PRN PRN #30 tab 09/01/18 12/18/18 allopurinol 100 mg tablet 150 mg PO DAILY #120 tab 09/01/18 12/18/18 hydralazine 50 mg tablet 50 mg PO BID #180 tab-cap 09/01/18 12/18/18 levetiracetam 1,000 mg tablet 500 mg PO BID #180 tab 09/01/18 12/18/18 multivitamin tablet 1 tab PO DAILY #90 tab 09/01/18 12/18/18 tacrolimus 1 mg capsule 1 mg PO .COMPLEX #270 cap 10/04/18 12/18/18 calcium carbonate 200 mg calcium 200 mg PO BID #180 tab 12/16/18 12/18/18 (500 mg) chewable tablet aspirin 81 mg PO DAILY 12/17/18 12/18/18 guaifenesin [Mucinex] 600 mg PO Q12H 12/17/18 12/18/18 Previous Rx's Medication Instructions Recorded amlodipine 10 mg tablet 10 mg PO DAILY #90 tab 08/25/18 carvedilol 12.5 mg tablet 12.5 mg PO BID #180 tab 08/25/18 diltiazem CD 120 mg 120 mg PO DAILY #90 cap 08/25/18 capsule,extended release 24 hr levothyroxine 100 mcg capsule 100 mcg PO DAILY #90 cap 08/25/18 losartan 100 mg tablet 100 mg PO DAILY #90 tab 08/25/18 pantoprazole 20 mg tablet,delayed 20 mg PO DAILY #90 tab 08/25/18 release acetaminophen 500 mg tablet 1,000 mg PO Q6H PRN PRN #30 tab 09/01/18 allopurinol 100 mg tablet 150 mg PO DAILY #120 tab 09/01/18 hydralazine 50 mg tablet 50 mg PO BID #180 tab-cap 09/01/18 levetiracetam 1,000 mg tablet 500 mg PO BID #180 tab 09/01/18 multivitamin tablet 1 tab PO DAILY #90 tab 09/01/18 tacrolimus 1 mg capsule 1 mg PO .COMPLEX #270 cap 10/04/18 calcium carbonate 200 mg calcium 200 mg PO BID #180 tab 12/16/18 (500 mg) chewable tablet Allergies Allergy/AdvReac Type Severity Reaction Status Date / Time hydrochlorothiazide Allergy Mild Verified 12/18/18 13:15 benazepril Allergy Unknown Verified 12/18/18 13:15 codeine Allergy Unknown Verified 12/18/18 13:15 pollen extracts AdvReac Mild chronic Verified 12/18/18 13:15 rhinitis General Stated Complaint: AMS/LOC SANJUANA: 3 Review of Systems Review of Systems All systems reviewed & are unremarkable except as noted in HPI and below Constitutional Reports as per HPI, Denies chills and Denies fever(s) Eyes Denies blurry vision ENT Denies dizziness, Denies sore throat and Denies throat swelling Cardiovascular Denies chest pain and Denies dyspnea Respiratory Denies cough and Denies dyspnea Gastrointestinal Denies abdominal pain, Denies diarrhea and Denies vomiting Genitourinary Denies hematuria and Denies dysuria Musculoskeletal Denies back pain and Denies numbness Integumentary/Breasts Denies lesions and Denies rash Neurologic Denies dizziness, Denies focal weakness and Denies numbness Allergic/Immunologic Denies throat swelling [facility] Social History Smoking/Tobacco Use Status: Never Drug use: Never Do you feel safe at home: Yes Do you feel safe in your relationship?: Yes Exam Const General: cooperative and healthy appearing Orientation: alert and awake HENMT Head: normal to inspection Ears: hearing grossly normal bilaterally and external ears normal General nose exam: external nose normal Face and sinus: normal facial exam Mouth: oral mucosae normal Eyes General: appearance normal, both eyes and all related structures Eyelids: eyelids normal Pupils: PERRL EOM: EOM intact bilaterally Neck Neck: normal visual inspection Lymphatic: no lymphadenopathy noted Chest Chest: normal inspection of the chest and other (Triple catheter right upper chest, no evidence of infection.) Resp Effort & Inspection: normal respiratory effort and able to speak in complete sentences Auscultation: clear to auscultation bilaterally Cardio Rate: regular rate Rhythm: regular rhythm GI Inspection: normal to inspection Palpation: soft, not firm, no guarding, no hepatosplenomegaly, no masses and nontender Auscultation: normal bowel sounds Back/Spine/Pelvis Back: no CVA tenderness Cervical Spine: No cervical spinal tenderness Thoracic/Lumbar Spine: No thoracic spinal tenderness and No lumbar spinal tenderness Skin General skin exam: no rashes or lesions noted Neuro General: alert, awake, oriented x3, moves all extremities, no meningeal signs and no focal motor deficits Cranial Nerves: CN's II-XI intact bilaterally Cognition: normal cognition Speech: speech normal Gait: normal gait Motor: muscle tone normal throughout and strength 5/5 throughout Sensory Exam: no sensory deficits noted Extrem General: normal to inspection, full ROM and normal capillary refill Other: Bandages noted in right upper arm without active bleeding or cellulitis noted. Psych Appearance: grossly normal Mental Status: mental status grossly normal Speech and Movement: speech and movement normal Affect: normal affect Thought Process: normal Course Vital Signs Pulse 59 L 12/18/18 13:11 Respiratory Rate 12 12/18/18 13:11 Blood Pressure 92/70 L 12/18/18 13:11 Pulse Oximetry 96 12/18/18 13:11 Pulse 59 L 12/18/18 13:11 Respiratory Rate 12 12/18/18 13:11 Blood Pressure 92/70 L 12/18/18 13:11 Blood Pressure Position Supine 12/18/18 13:11 Pulse Oximetry 96 12/18/18 13:11 Oxygen Delivery Method Room Air 12/18/18 13:11 Oxygen Flow Rate 0 12/18/18 13:11 Pain Level 0 12/18/18 13:11
[2018-12-18] MEDS: Normal Saline 250 ML IV (13:57)
[2018-12-18 14:03] LABS: Abs Immature Grans 0.01 k/cumm (0.0-0.09); Absolute Basophil Count 0.03 k/cumm (0.0-0.2); Absolute Eosinophil Count 0.17 k/cumm (0.0-0.7); Absolute Monocyte Count 0.49 k/cumm (0.11-0.7); Absolute Neutrophil Count 2.87 k/cumm (1.2-6.7); Basophils % 0.6; Eosinophils % 3.4; HCT 31.8 % (40.0-50.0); HGB 10.7 g/dL (13.5-17.5); Immature Grans % 0.2; Lymphocytes % 28.2; Mean Corp. HGB Concentration 33.6 g/dL (32.0-36.0); Mean Corpuscular Hemoglobin 31.1 pg (27.0-33.0); Mean Corpuscular Volume 92.4 fL (80-95); Mean Platelet Volume 8.5 fL (8.0-11.0); Monocytes % 9.9; Neutrophils % 57.7; Platelet Count 200 x1000/uL (130-400); RBC 3.44 m/cumm (4.50-6.00); White Blood Cell Count 4.97 k/cumm (4.4-10.8)
[2018-12-18 14:15] LABS: ALT 15 U/L (12-78); AST 13 U/L (15-37); Albumin 3.1 g/dL (3.4-5.0); Alkaline Phosphatase 87 U/L (46-116); BUN 55 mg/dL (7-18); Bilirubin, Total 0.5 mg/dL (0.2-1.0); Calcium 8.5 mg/dL (8.5-10.1); Chloride 97 mmol/L (98-107); Estimated GFR 6.72 (mL/min/1.73m2); Glucose 137 mg/dL (70-100); Magnesium 2.1 mg/dL (1.8-2.4); Potassium 5.1 mmol/L (3.5-5.1); Sodium 135 mmol/L (136-145); Total Protein 6.8 g/dL (6.4-8.2)
[2018-12-18 14:29] LABS: CREATININE 8.28 mg/dL (0.70-1.30); Troponin I < 0.02 ng/mL (0.00-0.06)
[2018-12-18 14:31] VITALS: BP 83/61; BP 96/67; BP 99/77; PULSE 58; PULSE 62; PULSE 69
--- NOTE | 2018-12-18 14:51 | DI.VRAD_ITS ---
EXAM: XR Chest, 2 Views EXAM DATE/TIME: 12/18/2018 1:34 PM CLINICAL HISTORY: 58 years old, male; Signs and symptoms; Other: Stumbling; Patient HX: Stumblinng TECHNIQUE: Imaging protocol: XR of the chest, 2 views. COMPARISON: CR XR CHEST 2V PA LATERAL 12/17/2018 3:22 PM FINDINGS: Right-sided dual lumen central catheter in good position with the tip projecting over the lower superior vena cava. The lung cohen are clear bilaterally. No focal pulmonary consolidation is present. The cardiac silhouette is within normal limits. The costophrenic angles are sharp. The bony structures appear unremarkable. IMPRESSION: No evidence of acute cardiopulmonary disease. Dictated and Authenticated by: Taj Salinas MD. Ordering:GRAY Barnard MD
--- NOTE | 2018-12-18 15:03 | DI.VRAD_ITS ---
EXAM: CT Head Without Contrast EXAM DATE/TIME: 12/18/2018 1:35 PM CLINICAL HISTORY: 58 years old, male; Signs and symptoms; Patient HX: Stumbling, falls, R/O acute process TECHNIQUE: Imaging protocol: Axial computed tomography images of the head without contrast. Coronal and sagittal reformatted images were created and reviewed. Radiation optimization: All CT scans at this facility use at least one of these dose optimization techniques: automated exposure control; mA and/or kV adjustment per patient size (includes targeted exams where dose is matched to clinical indication); or iterative reconstruction. COMPARISON: CT HEAD WO 12/17/2018 3:20 PM FINDINGS: Chronic white matter changes of probable small vessel disease. No evidence of hemorrhage. No mass effect. No acute intracranial abnormality. Chronic appearing left maxillary sinus disease. IMPRESSION: No evidence of acute intracranial process. Dictated and Authenticated by: Taj Salinas MD. Ordering:GRAY Barnard MD
[2018-12-18 15:19] LABS: Bilirubin Small (Negative); Blood Negative (Negative); Clarity Clear; Glucose Negative (Negative); Ketones Trace mg/dL (Negative); Leukocyte Esterase Negative (Negative); Nitrite Negative (Negative); Urobilinogen 0.2 EU/dL (Up TO 0.2)
[2018-12-18 15:32] LABS: Bacteria Few HPF (Negative); Crystals Negative HPF (Negative); Epithelial Cells Moderate HPF (Negative); Mucus Moderate (Negative); Other Cells Few Renal (Negative); RBC Negative (0-2)
[2018-12-18 15:33] LABS: C & S Indicated? No/Sq. Contamination; Casts Negative LPF (Negative)
[2018-12-18 16:11] VITALS: BP 97/66; PULSE 60; RESP 16; TEMP 36.6; O2SAT 95
== END 2018-12-18 16:26 | disposition home or self-care (01) ==
PROVIDERS: Emergency Provider Physician Assistant; PCP Emergency Medicine
DX: R26.89 Other abnormalities of gait and mobility (principal); Z87.820 Personal history of traumatic brain injury; I12.0 Hypertensive chronic kidney disease with stage 5 chronic kidney disease or end stage renal disease; N18.6 End stage renal disease; Z99.2 Dependence on renal dialysis; Z91.81 History of falling
CPT/HCPCS: 36415; 80053; 93005; 96360; 99285; 70450; 71046; 81003; 81015; 83735; 84484; 85025; 93010

== ENCOUNTER 2019-01-11 14:43 | Emergency (ER) | payer MEDICAID, SELFPAY ==
[2019-01-11 15:01] VITALS: BP 77/49; PULSE 63; RESP 16; TEMP 36.7; O2SAT 97
--- NOTE | 2019-01-11 15:14 | ED.GENADUL_ITS ---
Discharge Plan Disposition Patient Disposition: [facility] Condition: Improving Discharge Details Chief Complaint: Dizzy/Sync Clinical Impression: Cerumen impaction, Tinnitus Primary Care Provider: Carroll Fuentes ED Provider: Mathew Rossi Home Meds and New Rx's Prescriptions: No Action amlodipine 10 mg tablet 10 mg PO DAILY Qty: 90 RF: 4 carvedilol [Coreg] 12.5 mg tablet 12.5 mg PO BID Qty: 180 RF: 3 diltiazem HCl [Cartia XT] 120 mg capsule,extended release 24hr 120 mg PO DAILY Qty: 90 RF: 3 levothyroxine 100 mcg capsule 100 mcg PO DAILY Qty: 90 RF: 3 losartan 100 mg tablet 100 mg PO DAILY Qty: 90 RF: 3 pantoprazole 20 mg tablet,delayed release (DR/EC) 20 mg PO DAILY Qty: 90 RF: 3 acetaminophen [Mapap Extra Strength] 500 mg tablet 1,000 mg PO Q6H PRN PRN (Reason: pain (scale score 1-3)) Qty: 30 RF: 8 allopurinol 100 mg tablet 150 mg PO DAILY Qty: 120 RF: 4 hydralazine 50 mg tablet 50 mg PO BID Qty: 180 RF: 4 levetiracetam [Keppra] 1,000 mg tablet 500 mg PO BID Qty: 180 RF: 3 multivitamin [Multiple Vitamins] tablet 1 tab PO DAILY Qty: 90 RF: 3 tacrolimus [Prograf] 1 mg capsule 1 mg PO .COMPLEX Qty: 270 RF: 3 calcium carbonate [Tums] 200 mg calcium (500 mg) tablet,chewable 200 mg PO BID Qty: 180 RF: 3 aspirin 81 mg tablet,delayed release (DR/EC) 81 mg PO DAILY Qty: 90 RF: 4 guaifenesin [Mucinex] 600 mg Tablet Extended Release 12hr 600 mg PO Q12H RF: 0 Discharge Instructions Instructions: Cerumen Impaction (ED) Additional Instructions: Please do not insert anything into your ear and see your primary care provider or have nursing staff irrigate your ears instead of using Q-tips. Otherwise feel free to return to the emergency department for any new or significant worsening of symptoms or further concerns he may have. Follow-up with your primary care provider as needed for reassessment. Referrals: Carroll Fuentes, [Primary Care Provider] - Discharge Data Discharge Date/Time-TO BE ENTERED AT DEPARTURE: 01/11/19 18:05 Medical Decision Making <Wilfredo Paredes DO - Last Filed: 01/11/19 21:50> This is a pleasant 58-year-old male with a past medical history of traumatic brain injury, renal failure on dialysis, who presents today for evaluation of ringing in his ears and mild lightheadedness. The patient just had dialysis today. He was sent by Dr. Vargas for evaluation of ataxia. However upon arrival the patient states that he feels fine and is able to walk as he normally does with his 2 canes. The nurse from the [facility] states that he has had no acute changes after dialysis. He has been functioning at his normal baseline. He always gets slightly lightheaded after his dialysis but this resolves within a few hours without any intervention. He does have lingering ringing in the left ear, and nursing staff there was concern for cerumen impaction, they state that is why they sent him to Dr. Vargas's. Currently the patient states he feels great, exam demonstrates mild left-sided horizontal nystagmus, minimal vertical nystagmus. No rotatory nystagmus. Negative test of skew, positive head impulse test. Signs and symptoms concerning for peripheral etiology rather than central. However due to the patient's history we will get a CT scan of the head, laboratory work-up to evaluate for other acute etiology. We he does demonstrate notable cerumen impaction in the left ear and we will remove this. Currently we are pending imaging and laboratory work-up. The case will be signed out to my colleague Mathew Rossi for final disposition and management per EKG 16: 07 Rate 54, intervals normal, sinus bradycardia, no evidence of first-degree block. Inverted T wave in V1 and V2. No significant ST elevations or depressions, no significant Q waves. No significant changes from prior EKG on 12/18/18 <Mathew Rossi NP - Last Filed: 01/11/19 23:08> Review of labs show baseline findings per patient's history, no acute intracranial findings per radiologist interpretation of head CT. staff nuclear weapons officer was able to irrigate patient's ear and removed some cerumen along with cotton which appears to be the end of a Q-tip. Afterwards patient stated improvement of symptoms and hearing. Patient does still have some nystagmus with left lateral gaze but otherwise is able to ambulate at his baseline. Given that patient did have cerumen impaction with foreign body in the ear I do feel that this was a peripheral source for his nystagmus and sensation of dizziness so I do feel that he is able to be safely discharged back to his living situation. Return precautions were discussed. After discussion of diagnosis and plan of care patient has no further needs, questions, or concerns and states clear understanding to return to the emergency department for any worsening symptoms. HPI <Wilfredo Paredes DO - Last Filed: 01/11/19 21:50> General Date/Time Provider Initiated Documentation: 01/11/19 15:02 . HPI Narrative: Patient is a 58-year-old male with a history of seizures, gout, DVT, hypertension, hypothyroidism, end-stage renal disease on dialysis, TBI, and chronic mild ataxia for which she uses 2 canes at all times. He presents today after being sent by Dr. Vargas for evaluation of ataxia. Patient did have dialysis earlier today, and states that he usually gets slightly lightheaded after dialysis. He denies any acute changes in regards to this. He does note chronic ringing in his left ear. He denies any significant vertigo or room spinning sensation. We were contacted by the nurse at [facility], and she states that the patient was actually sent to Dr. Fuentes's to have his left ear checked to evaluate for cerumen impaction. They state that his symptoms postdialysis have been chronic and unchanged, that they have noticed no other acute changes. It is mainly been the pressure that the patient has been feeling by his left ear, in addition to the ringing. Patient has no other complaints. He states that he feels great. He denies any numbness, tingling, or new weakness. He denies any nausea, vomiting, diarrhea, headache, vision changes, fever, chills, neck pain, chest pain, shortness of breath. Related Data Home Medications Medication Instructions Recorded Confirmed amlodipine 10 mg tablet 10 mg PO DAILY #90 tab 08/25/18 01/11/19 carvedilol 12.5 mg tablet 12.5 mg PO BID #180 tab 08/25/18 01/11/19 diltiazem CD 120 mg 120 mg PO DAILY #90 cap 08/25/18 01/11/19 capsule,extended release 24 hr levothyroxine 100 mcg capsule 100 mcg PO DAILY #90 cap 08/25/18 01/11/19 losartan 100 mg tablet 100 mg PO DAILY #90 tab 08/25/18 01/11/19 pantoprazole 20 mg tablet,delayed 20 mg PO DAILY #90 tab 08/25/18 01/11/19 release acetaminophen 500 mg tablet 1,000 mg PO Q6H PRN PRN #30 tab 09/01/18 01/11/19 allopurinol 100 mg tablet 150 mg PO DAILY #120 tab 09/01/18 01/11/19 hydralazine 50 mg tablet 50 mg PO BID #180 tab-cap 09/01/18 01/11/19 levetiracetam 1,000 mg tablet 500 mg PO BID #180 tab 09/01/18 01/11/19 multivitamin tablet 1 tab PO DAILY #90 tab 09/01/18 01/11/19 tacrolimus 1 mg capsule 1 mg PO .COMPLEX #270 cap 10/04/18 01/11/19 calcium carbonate 200 mg calcium 200 mg PO BID #180 tab 12/16/18 01/11/19 (500 mg) chewable tablet guaifenesin [Mucinex] 600 mg PO Q12H 12/17/18 01/11/19 aspirin 81 mg tablet,delayed 81 mg PO DAILY #90 tab 12/27/18 01/11/19 release Previous Rx's Medication Instructions Recorded amlodipine 10 mg tablet 10 mg PO DAILY #90 tab 08/25/18 carvedilol 12.5 mg tablet 12.5 mg PO BID #180 tab 08/25/18 diltiazem CD 120 mg 120 mg PO DAILY #90 cap 08/25/18 capsule,extended release 24 hr levothyroxine 100 mcg capsule 100 mcg PO DAILY #90 cap 08/25/18 losartan 100 mg tablet 100 mg PO DAILY #90 tab 08/25/18 pantoprazole 20 mg tablet,delayed 20 mg PO DAILY #90 tab 08/25/18 release acetaminophen 500 mg tablet 1,000 mg PO Q6H PRN PRN #30 tab 09/01/18 allopurinol 100 mg tablet 150 mg PO DAILY #120 tab 02/21/19 hydralazine 50 mg tablet 50 mg PO BID #180 tab-cap 09/01/18 levetiracetam 1,000 mg tablet 500 mg PO BID #180 tab 09/01/18 multivitamin tablet 1 tab PO DAILY #90 tab 09/01/18 tacrolimus 1 mg capsule 1 mg PO .COMPLEX #270 cap 10/04/18 calcium carbonate 200 mg calcium 200 mg PO BID #180 tab 12/16/18 (500 mg) chewable tablet aspirin 81 mg tablet,delayed 81 mg PO DAILY #90 tab 12/27/18 release Allergies Allergy/AdvReac Type Severity Reaction Status Date / Time hydrochlorothiazide Allergy Mild Verified 01/11/19 14:07 benazepril Allergy Unknown Verified 01/11/19 14:07 codeine Allergy Unknown Verified 01/11/19 14:07 pollen extracts AdvReac Mild chronic Verified 01/11/19 14:07 rhinitis General Stated Complaint: Dizzy/Sync SANJUANA: 3 Review of Systems <Wilfredo Paredes DO - Last Filed: 01/11/19 21:50> Review of Systems All systems reviewed & are unremarkable except as noted in HPI and below PFSH <Wilfredo Paredes DO - Last Filed: 01/11/19 21:50> Social History Smoking/Tobacco Use Status: Never Alcohol Intake: never Drug use: Never Substance use type: does not use Do you feel safe at home: Yes Do you feel safe in your relationship?: Yes Exam <Wilfredo Paredes DO - Last Filed: 01/11/19 21:50> Narrative Exam Narrative: 1.Const: Well-nourished, Well-developed, appearing stated age 2.Eyes: PERRL, no conjunctival injection, and symmetrical lids. Minimal left- sided horizontal nystagmus, no rotatory nystagmus. Minimal vertical nystagmus. Positive head impulse test, negative test of skew. 3.ENT: Atraumatic external nose and ears. Moist MM. Neck: Symmetric, trachea midline, No thyromegaly. 4.CVS: +S1/S2, No murmurs or gallops. Peripheral pulses 2+ and equal in all extremities. Brisk capillary refill in all extremities. 5.RESP: Unlabored respiratory effort. Clear to auscultation bilaterally. No wheezes rales or rhonchi 6.GI: Soft, Nontender/Nondistended, No hepatosplenomegaly. No guarding or rebound. 7.MSK: Normocephalic/Atraumatic, Extremities w/o deformity or ttp No cyanosis or clubbing, Normal movement of all extremities for the patient's baseline. Patient is able to get up without any assistance and ambulate as he states he normally does with his 2 canes. He shows no signs of severe acute ataxia. He feels stable currently. He is chronic walking pattern certainly obvious gait the exam to a degree, however the patient on multiple reassessments states that he feels totally normal and is at his baseline. 8.Skin: Warm, Dry. No rashes or lesions. 9.Neuro: fluid power mechanic II-XII grossly intact. Sensation grossly intact, no focal neurologic deficits. 5 out of 5 strength in all extremities, normal sensation throughout, no facial asymmetry, facial droop, or tongue deviation. 10.Psych: (AAO) x3. Appropriate mood and affect Course <Wilfredo Paredes DO - Last Filed: 01/11/19 21:50> Vital Signs Temperature 36.7 C 01/11/19 15:01 Pulse 63 01/11/19 15:01 Respiratory Rate 16 01/11/19 15:01 Blood Pressure 77/49 L 01/11/19 15:01 Pulse Oximetry 97 01/11/19 15:01 Temperature 36.7 C 01/11/19 15:01 Temperature Source Temporal Artery Scan 01/11/19 15:01 Pulse 63 01/11/19 15:01 Respiratory Rate 16 01/11/19 15:01 Blood Pressure 77/49 L 01/11/19 15:01 Pulse Oximetry 97 01/11/19 15:01 Oxygen Delivery Method Room Air 01/11/19 15:01 Oxygen Flow Rate 0 01/11/19 15:01 Sign Out <DO Aneesh Main Last Filed: 01/11/19 21:50> Sign Out Data: Sign Out Comment: Pending laboratory work-up and CT head. Expect that symptoms are peripheral in origin, if work-up benign, patient most likely be stable for disposition back to [place]. Does require cerumen removal and left ear currently Last updated by Wilfredo Paredes DO at 01/11/19 16:39
[2019-01-11 15:17] VITALS: RESP 17
--- NOTE | 2019-01-11 15:41 | DI.CT_ITS ---
SYMPTOM/DIAGNOSIS: DIZZY, PREVIOUSLY ALTERED, APPEARS NORMAL NOW NONCONTRAST HEAD CT: Comparison is made with 18 December 2018 There is stable atrophy as well as white matter changes of small vessel disease. No superimposed acute infarct, mass or hemorrhage is seen. There is no evidence of skull fracture. There is minimal left maxillary sinus, mucosal thickening. IMPRESSION: No acute abnormality.
[2019-01-11] MEDS: Meclizine 25 MG TAB PO (16:00)
[2019-01-11 16:11] LABS: Absolute Basophil Count 0.04 k/cumm (0.0-0.2); Absolute Eosinophil Count 0.08 k/cumm (0.0-0.7); Absolute Lymphocyte Count 1.13 k/cumm (1.2-3.4); Absolute Monocyte Count 0.46 k/cumm (0.11-0.7); Absolute Neutrophil Count 2.29 k/cumm (1.2-6.7); HCT 33.1 % (40.0-50.0); HGB 10.9 g/dL (13.5-17.5); Lymphocytes % 28.3; Mean Corp. HGB Concentration 32.9 g/dL (32.0-36.0); Mean Corpuscular Hemoglobin 32.1 pg (27.0-33.0); Mean Corpuscular Volume 97.4 fL (80-95); Mean Platelet Volume 8.7 fL (8.0-11.0); Monocytes % 11.5; Neutrophils % 57.2; Platelet Count 217 x1000/uL (130-400); RBC Distribution Width 15.8 % (11.8-14.1)
[2019-01-11] MEDS: Normal Saline 250 ML 1000 ML IV (16:16)
[2019-01-11 16:27] LABS: PTT Activated 27.1 sec (21.0-31.4); Prothrombin Time 10.3 sec (9.3-11.0)
[2019-01-11 16:39] LABS: ALT 16 U/L (12-78); AST 12 U/L (15-37); Albumin 3.6 g/dL (3.4-5.0); Alkaline Phosphatase 101 U/L (46-116); Anion Gap 7.7 mmol/L (3-11); BUN 20 mg/dL (7-18); Bilirubin, Total 0.8 mg/dL (0.2-1.0); CO2 32.3 mmol/L (21.0-32.0); Chloride 99 mmol/L (98-107); Estimated GFR 12.02 (mL/min/1.73m2); Glucose 130 mg/dL (70-100); NT-proBNP 1812 pg/mL; Potassium 4.9 mmol/L (3.5-5.1); Sodium 139 mmol/L (136-145); TSH (W/Ref FT4) 3.08 uIU/mL (0.358-3.74); Total Protein 7.6 g/dL (6.4-8.2)
[2019-01-11 16:40] LABS: Troponin I < 0.05 ng/mL (0.00-0.06)
[2019-01-11 16:54] LABS: ETHANOL BLOOD < 3.0 mg/dL (<3)
--- NOTE | 2019-01-11 16:54 | DI.VRAD_ITS ---
EXAM: CT Head Without Contrast EXAM DATE/TIME: 01/11/2019 3:43 PM CLINICAL HISTORY: 58 years old, male; Dizziness; Patient HX: Dizzy, previously altered, appears normal now. TECHNIQUE: Imaging protocol: Axial computed tomography images of the head without contrast. Coronal and sagittal reformatted images were created and reviewed. Radiation optimization: All CT scans at this facility use at least one of these dose optimization techniques: automated exposure control; mA and/or kV adjustment per patient size (includes targeted exams where dose is matched to clinical indication); or iterative reconstruction. COMPARISON: CT HEAD WO 12/18/2018 2:21 PM FINDINGS: Brain: There is no evidence for acute intracranial abnormality. Previously seen bilateral inferior frontal areas of encephalomalacia are again noted. Left temporal lobe encephalomalacia is unchanged. There is no evidence for acute intracranial hemorrhage. Cerebral volume loss noted. Scattered areas of decreased attenuation in the deep periventricular white matter consistent with small vessel ischemic change. Ventricles: Normal. No ventriculomegaly. Bones/joints: Unremarkable. No acute fracture. Sinuses: Visualized sinuses are unremarkable. No fluid levels. Mastoid air cells: Visualized mastoid air cells are well aerated. No mastoid effusion. Soft tissues: Unremarkable. IMPRESSION: Senescent changes noted. No acute intracranial abnormality. COMMENT: Preliminary interpretation is based on receipt of 372 image(s). A final report will be issued subsequently. Dictated and Authenticated by: Sherine Santana MD. Ordering:CLEO Villalobos MD
== END 2019-01-11 18:05 | disposition designated cancer center or children's hospital (05) ==
PROVIDERS: Student in an Organized Health Care Education/Training Program; Emergency Provider Nurse Practitioner Family; PCP Emergency Medicine
DX: H93.13 Tinnitus, bilateral (principal); H61.23 Impacted cerumen, bilateral; R00.2 Palpitations; R42 Dizziness and giddiness; I12.0 Hypertensive chronic kidney disease with stage 5 chronic kidney disease or end stage renal disease; N18.6 End stage renal disease; Z99.2 Dependence on renal dialysis; Z94.0 Kidney transplant status
CPT/HCPCS: 36415; 80053; 93005; 99285; 70450; 80320; 81003; 83880; 84443; 84484; 85025; 85610; 85730; 93010; 99284

== ENCOUNTER 2019-02-23 10:28 | Emergency (ER) | payer MEDICAID, SELFPAY ==
[2019-02-23 10:33] VITALS: PULSE 71; RESP 20; TEMP 36.8; O2SAT 98
[2019-02-23 10:45] VITALS: BP 140/86
--- NOTE | 2019-02-23 10:50 | NUR.NOTE ---
Nursing Note: Spoke with nurse at [facility] as patient is stating he has no idea why he is here, that he had fallen when getting out of his rocking chair. Pt denies any injury or pain, states he falls often. BP's noted when taking brachial that were very hypotensive. 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 BP taken on foot with a normal reading. THis scribe called nurse at [facility] who states about a month ago pt had gotten a piece of cotton from q tip stuck in ear and was falling more frequently and they sent him to ER as they feel he has a q tip cotton in ear again. Nurse states he walks to the store and they feel he is buying q tips on his own and they were unable to make an appointment with PCP. notified. checked ears and discharged patient as patient has nothing in his ears and has no complaints. [facility] SAVANNA Guadalupe was notified that patient is discharged and in waiting room.
--- NOTE | 2019-02-23 10:53 | ED.GENADUL_ITS ---
Discharge Plan Disposition Patient Disposition: HOME Condition: Stable Discharge Details Chief Complaint: EarProblem Clinical Impression: Ear ache Primary Care Provider: Carroll Fuentes ED Provider: Anup Gunn [place] Meds and New Rx's Prescriptions: No Action hydralazine 50 mg tablet 50 mg PO DAILY RF: 0 amlodipine 10 mg tablet 10 mg PO DAILY Qty: 90 RF: 4 carvedilol [Coreg] 12.5 mg tablet 12.5 mg PO BID Qty: 180 RF: 3 diltiazem HCl [Cartia XT] 120 mg capsule,extended release 24hr 120 mg PO DAILY Qty: 90 RF: 3 levothyroxine 100 mcg capsule 100 mcg PO DAILY Qty: 90 RF: 3 losartan 100 mg tablet 100 mg PO DAILY Qty: 90 RF: 3 pantoprazole 20 mg tablet,delayed release (DR/EC) 20 mg PO DAILY Qty: 90 RF: 3 acetaminophen [Mapap Extra Strength] 500 mg tablet 1,000 mg PO Q6H PRN PRN (Reason: pain (scale score 1-3)) Qty: 30 RF: 8 allopurinol 100 mg tablet 150 mg PO DAILY Qty: 120 RF: 4 multivitamin [Multiple Vitamins] tablet 1 tab PO DAILY Qty: 90 RF: 3 tacrolimus [Prograf] 1 mg capsule 1 mg PO .COMPLEX Qty: 270 RF: 3 calcium carbonate [Tums] 200 mg calcium (500 mg) tablet,chewable 200 mg PO BID Qty: 180 RF: 3 aspirin 81 mg tablet,delayed release (DR/EC) 81 mg PO DAILY Qty: 90 RF: 4 levetiracetam [Keppra] 1,000 mg tablet 500 mg PO BID Qty: 180 RF: 3 guaifenesin [Mucinex] 600 mg Tablet Extended Release 12hr 600 mg PO Q12H RF: 0 Discharge Instructions Instructions: Earache (ED) Medical Decision Making 58 yo male comes in with chief complaint of left ear pain and is not sure if he has a q tip stuck in it. HE has no fevers and is in no distress on exam. His bilateral tm's, external auditory canals and external mastoids are normal on exam and no foreign body. He has no other complaints at this time. He did have a fall earlier today but denies loc and has no pain elsewhere so do not feel acute imaging indicated. Differential Diagnosis otitis media, otitis externa HPI General Mode of arrival: ambulatory . Date/Time Provider Initiated Documentation: 02/23/19 10:31 . Information obtained by: patient . History of Present Illness 58 year old M presents to the emergency department with the chief complaint of ear pain, described as mild, Quality is described as aching, Patient started experiencing this day(s) (2) and it has been constant. No relieving factors improve symptom(s), No exacerbating factors reported . Patient did receive the following treatments prior to arrival, none Related Data Home Medications Medication Instructions Recorded Confirmed amlodipine 10 mg tablet 10 mg PO DAILY #90 tab 08/25/18 02/23/19 carvedilol 12.5 mg tablet 12.5 mg PO BID #180 tab 08/25/18 02/23/19 diltiazem HCl 120 mg 120 mg PO DAILY #90 cap 08/25/18 02/23/19 capsule,extended release 24 hr levothyroxine 100 mcg capsule 100 mcg PO DAILY #90 cap 08/25/18 02/23/19 losartan 100 mg tablet 100 mg PO DAILY #90 tab 08/25/18 02/23/19 pantoprazole 20 mg tablet,delayed 20 mg PO DAILY #90 tab 08/25/18 02/23/19 release acetaminophen 500 mg tablet 1,000 mg PO Q6H PRN PRN #30 tab 09/01/18 02/23/19 allopurinol 100 mg tablet 150 mg PO DAILY #120 tab 09/01/18 02/23/19 multivitamin 1 tab PO DAILY #90 tab 09/01/18 02/23/19 tacrolimus 1 mg capsule 1 mg PO .COMPLEX #270 cap 10/04/18 02/23/19 calcium carbonate 200 mg calcium 200 mg PO BID #180 tab 12/16/18 02/23/19 (500 mg) chewable tablet guaifenesin [Mucinex] 600 mg PO Q12H 12/17/18 02/23/19 aspirin 81 mg tablet,delayed 81 mg PO DAILY #90 tab 12/27/18 02/23/19 release hydralazine 50 mg tablet 50 mg PO DAILY tab-cap 01/26/19 02/23/19 levetiracetam 1,000 mg tablet 500 mg PO BID #180 tab 02/21/19 02/23/19 Previous Rx's Medication Instructions Recorded amlodipine 10 mg tablet 10 mg PO DAILY #90 tab 08/25/18 carvedilol 12.5 mg tablet 12.5 mg PO BID #180 tab 08/25/18 diltiazem HCl 120 mg 120 mg PO DAILY #90 cap 08/25/18 capsule,extended release 24 hr levothyroxine 100 mcg capsule 100 mcg PO DAILY #90 cap 08/25/18 losartan 100 mg tablet 100 mg PO DAILY #90 tab 08/25/18 pantoprazole 20 mg tablet,delayed 20 mg PO DAILY #90 tab 08/25/18 release acetaminophen 500 mg tablet 1,000 mg PO Q6H PRN PRN #30 tab 09/01/18 allopurinol 100 mg tablet 150 mg PO DAILY #120 tab 09/01/18 multivitamin 1 tab PO DAILY #90 tab 09/01/18 tacrolimus 1 mg capsule 1 mg PO .COMPLEX #270 cap 10/04/18 calcium carbonate 200 mg calcium 200 mg PO BID #180 tab 12/16/18 (500 mg) chewable tablet aspirin 81 mg tablet,delayed 81 mg PO DAILY #90 tab 12/27/18 release levetiracetam 1,000 mg tablet 500 mg PO BID #180 tab 02/21/19 Allergies Allergy/AdvReac Type Severity Reaction Status Date / Time hydrochlorothiazide Allergy Mild Verified 02/23/19 10:48 benazepril Allergy Unknown Verified 02/23/19 10:48 codeine Allergy Unknown Verified 02/23/19 10:48 pollen extracts AdvReac Mild chronic Verified 02/23/19 10:48 rhinitis General Stated Complaint: GenMedical SANJUANA: 5 Review of Systems Review of Systems All systems reviewed & are unremarkable except as noted in HPI and below Constitutional Denies chills, Denies fever(s) and Denies weakness Cardiovascular Denies chest pain and Denies dyspnea Respiratory Denies cough and Denies dyspnea Gastrointestinal Denies abdominal pain, Denies nausea and Denies vomiting Musculoskeletal Denies joint swelling Neurologic Denies weakness Endocrine Denies heat intolerance [facility] Social History (Updated 01/26/19 @ 13:11 by Christie Lemons RN) Smoking/Tobacco Use Status: Never Alcohol Intake: never Drug use: Never Substance use type: does not use Do you feel safe at home: Yes Do you feel safe in your relationship?: Yes Exam Const General: no acute distress Orientation: alert HENNC Head: normal to inspection Ears: external ears normal General nose exam: external nose normal Mouth: moist mucous membranes Eyes General: appearance normal, both eyes and all related structures Neck Neck: normal visual inspection Resp Effort & Inspection: normal respiratory effort and able to speak in complete sentences Cardio Rate: regular rate Skin General skin exam: no rashes or lesions noted Neuro General: alert Extrem General: normal to inspection Psych Mental Status: mental status grossly normal Course Vital Signs Temperature 36.8 C 02/23/19 10:33 Pulse 71 02/23/19 10:33 Respiratory Rate 20 02/23/19 10:33 Pulse Oximetry 98 02/23/19 10:33 Temperature 36.8 C 02/23/19 10:33 Temperature Source Temporal Artery Scan 02/23/19 10:33 Pulse 71 02/23/19 10:33 Respiratory Rate 20 02/23/19 10:33 Respiratory Effort Non-Labored 02/23/19 10:46 Blood Pressure 140/86 02/23/19 10:45 Pulse Oximetry 98 02/23/19 10:33 Oxygen Delivery Method Room Air 02/23/19 10:33 Oxygen Flow Rate 0 02/23/19 10:33 Pain Level 0 02/23/19 10:33 Comment 02/23/19 10:45
== END 2019-02-23 11:00 | disposition home or self-care (01) ==
PROVIDERS: Emergency Provider Emergency Medicine; PCP Emergency Medicine
DX: H92.02 Otalgia, left ear (principal); R29.6 Repeated falls; I10 Essential (primary) hypertension
CPT/HCPCS: 99281; 99282

== ENCOUNTER 2019-03-18 15:31 | Emergency (ER) | payer MEDICAID, SELFPAY ==
[2019-03-18] VITALS (23 sets, daily range): BP systolic 78–97; BP diastolic 53–63; PULSE 57–66; RESP 10–22; TEMP 36.9; O2SAT 93–100
--- NOTE | 2019-03-18 15:52 | DI.CT_ITS ---
SYMPTOM/DIAGNOSIS: RT HEAD TRAUMA AFTER FALL NONCONTRAST HEAD CT: A noncontrast cranial CT was performed. There is moderate generalized cerebral atrophy and there are patchy areas of decreased attenuation in periventricular white matter bilaterally consistent with microvascular ischemic change. Focal decreased attenuation also noted in tip of the left temporal lobe consistent with old infarct. No change in appearance in comparison with the previous CT of 01/11/19. No evidence of acute intracranial hemorrhage, mass effect or midline shift. Orbital and temporal bone structures appear intact. Paranasal sinuses and mastoid air cells are well aerated as visualized. CONCLUSION: No evidence of acute intracranial process.
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
[2019-03-18 16:33] LABS: Abs Immature Grans 0.01 k/cumm (0.0-0.09); Absolute Basophil Count 0.03 k/cumm (0.0-0.2); Absolute Eosinophil Count 0.26 k/cumm (0.0-0.7); Absolute Lymphocyte Count 1.02 k/cumm (1.2-3.4); Absolute Monocyte Count 0.69 k/cumm (0.11-0.7); Absolute Neutrophil Count 4.09 k/cumm (1.2-6.7); Basophils % 0.5; Eosinophils % 4.3; HCT 31.1 % (40.0-50.0); HGB 10.5 g/dL (13.5-17.5); Immature Grans % 0.2; Lymphocytes % 16.7; Mean Corp. HGB Concentration 33.8 g/dL (32.0-36.0); Mean Corpuscular Hemoglobin 34.4 pg (27.0-33.0); Mean Platelet Volume 8.5 fL (8.0-11.0); Monocytes % 11.3; Platelet Count 184 x1000/uL (130-400); RBC 3.05 m/cumm (4.50-6.00); RBC Distribution Width 13.3 % (11.8-14.1)
[2019-03-18 16:44] LABS: ALT 24 U/L (16-63); AST 14 U/L (15-37); Albumin 3.6 g/dL (3.4-5.0); Alkaline Phosphatase 97 U/L (46-116); BUN 40 mg/dL (7-18); Bilirubin, Total 0.4 mg/dL (0.2-1.0); Calcium 8.6 mg/dL (8.5-10.1); Chloride 98 mmol/L (98-107); Estimated GFR 7.93 (mL/min/1.73m2); Glucose 116 mg/dL (70-100); Sodium 137 mmol/L (136-145); Total Protein 7.5 g/dL (6.4-8.2)
[2019-03-18 16:46] LABS: CREATININE 7.17 mg/dL (0.70-1.30)
[2019-03-18 16:47] LABS: Potassium 6.2 mmol/L (3.5-5.1); Troponin I < 0.05 ng/mL (0.00-0.06)
--- NOTE | 2019-03-18 17:06 | DI.VRAD_ITS ---
EXAM: CT Head Without Contrast EXAM DATE/TIME: 03/18/2019 4:38 PM CLINICAL HISTORY: 58 years old, male; Injury or trauma; Fall; Prior surgery TECHNIQUE: Imaging protocol: Computed tomography of the head without contrast. COMPARISON: CT HEAD WO 01/11/2019 4:39 PM FINDINGS: Brain: No acute intracranial hemorrhage. There is moderate diffuse heterogeneity of the white matter attenuation, consistent with chronic white matter ischemic changes. Moderate cerebral atrophy Ventricles: Normal. No ventriculomegaly. Bones/joints: Unremarkable. No acute fracture. Sinuses: Visualized sinuses are unremarkable. No fluid levels. Mastoid air cells: Visualized mastoid air cells are well aerated. Soft tissues: Unremarkable. IMPRESSION: No acute intracranial hemorrhage. Dictated and Authenticated by: Gilda Li MD. Ordering:GERMÁN Hicks MD
[2019-03-18] MEDS: Acetaminophen 500 MG TAB (18:15)
== END 2019-03-18 18:15 | disposition home or self-care (01) ==
PROVIDERS: Emergency Provider Emergency Medicine; PCP Emergency Medicine
DX: S01.111A Laceration without foreign body of right eyelid and periocular area, initial encounter (principal); W01.198A Fall on same level from slipping, tripping and stumbling with subsequent striking against other object, initial encounter; Z79.01 Long term (current) use of anticoagulants; N18.6 End stage renal disease; I12.0 Hypertensive chronic kidney disease with stage 5 chronic kidney disease or end stage renal disease; E87.5 Hyperkalemia; Z99.2 Dependence on renal dialysis
CPT/HCPCS: 12011; 80053; 93005; 99284; 70450; 84484; 85025; 93010; 99283

== ENCOUNTER 2019-07-31 12:35 | Emergency (ER) | payer MEDICAID, SELFPAY ==
[2019-07-31 12:38] VITALS: BP 182/106; PULSE 100; RESP 16; TEMP 36.5; O2SAT 95
--- NOTE | 2019-07-31 12:45 | W.ED.GENAD ---
Discharge Plan Disposition Patient Disposition: HOME Discharge Details Chief Complaint: GenMedical Clinical Impression: Hypertension, Headache Primary Care Provider: Carroll Fuentes ED Provider: Anup Gunn Home Meds and New Rx's Prescriptions: Continued hydralazine 50 mg tablet 50 mg PO DAILY RF: 0 amlodipine 10 mg tablet 10 mg PO DAILY Qty: 90 RF: 4 levothyroxine 100 mcg capsule 100 mcg PO DAILY Qty: 90 RF: 3 acetaminophen [Mapap Extra Strength] 500 mg tablet 1,000 mg PO Q6H PRN PRN (Reason: pain (scale score 1-3)) Qty: 30 RF: 8 aspirin 81 mg tablet,delayed release (DR/EC) 81 mg PO DAILY Qty: 90 RF: 4 levetiracetam [Keppra] 1,000 mg tablet 500 mg PO BID Qty: 180 RF: 3 allopurinol 100 mg tablet 150 mg PO DAILY Qty: 120 RF: 4 diltiazem HCl [Cartia XT] 120 mg capsule,extended release 24hr 120 mg PO DAILY Qty: 90 RF: 3 tacrolimus [Prograf] 1 mg capsule 1 mg PO .COMPLEX Qty: 270 RF: 3 losartan 100 mg tablet 100 mg PO DAILY Qty: 90 RF: 3 calcium carbonate [Tums] 200 mg calcium (500 mg) tablet,chewable 200 mg PO BID Qty: 180 RF: 3 carvedilol [Coreg] 12.5 mg tablet 12.5 mg PO BID Qty: 180 RF: 3 multivitamin [Multiple Vitamins] Tablet 1 tab PO DAILY Qty: 90 RF: 3 pantoprazole 20 mg tablet,delayed release (DR/EC) 20 mg PO DAILY Qty: 90 RF: 3 guaifenesin [Mucinex] 600 mg Tablet Extended Release 12hr 600 mg PO Q12H RF: 0 Discharge Instructions Instructions: General Headache (ED) Additional Instructions: follow up with your primary care provider this week for a blood pressure check and management if you have persistent vomit, chest pain or difficulty breathing return to the emergency department Medical Decision Making 58 yo male with hx of htn, esrd on dialysis mwf and prior sdh and dvt on anticoagulation comes in from dialysis with bp's over 200's. he has to have his BP's taken at the ankles per report because of fistulas in the arms. He denies any chest pain, sob, abd pain, n/v. He has a headache for 2 hours in the frontal head that feels similar to prior headaches, slowly worsened and not the worst of his life and no fevers or chills. suspect tension headache, BP now is 180 but unsure how accurate ankle bp's are .Given BP has improved and only symptom is headache do not feel acute lowering indicated. given his hx of sdh will botain CT head. Pain is not consistent with sah and no findings on exam or history to suggest buckle gluer infection, cerebral venous thrombosis or central sinus thrombosis. ct negative and he remains stable with no other complaints and headache improved and bp now 150/80. do not feel additional meds at this time indicated, advised f/u with pcp this week and return precautions given Differential Diagnosis Differential Diagnosis: tension headache, sdh, htn Medical Records Medical records reviewed: Yes I reviewed the patient's medical records. Imaging Data Radiologic Study: Attestation: I personally reviewed and interpreted this imaging study as follows: Imaging: CT Scan Radiologist's impression: IMPRESSION: No evidence of acute intracranial process. HPI General Mode of arrival: ambulatory. Date/Time Provider Initiated Documentation: 07/31/19 12:37. Limitations to Documentation: no limitations. Information obtained by: patient. History of Present Illness 58 year old M presents to the emergency department with the chief complaint of headache, described as moderate, and is localized to the head. Patient reports no radiation. Patient started experiencing this hour(s) (2) and it has been constant. No relieving factors improve symptom(s), No exacerbating factors reported . Patient notes no other symptoms.. Patient did receive the following treatments prior to arrival, none Related Data Home Medications Medication Instructions Recorded Confirmed amlodipine 10 mg tablet 10 mg PO DAILY #90 tab 08/25/18 07/31/19 levothyroxine 100 mcg capsule 100 mcg PO DAILY #90 cap 08/25/18 07/31/19 acetaminophen 500 mg tablet 1,000 mg PO Q6H PRN PRN #30 tab 09/01/18 07/31/19 guaifenesin [Mucinex] 600 mg PO Q12H 12/17/18 07/31/19 aspirin 81 mg tablet,delayed 81 mg PO DAILY #90 tab 12/27/18 07/31/19 release hydralazine 50 mg tablet 50 mg PO DAILY tab-cap 01/26/19 04/28/19 levetiracetam 1,000 mg tablet 500 mg PO BID #180 tab 02/21/19 07/31/19 allopurinol 100 mg tablet 150 mg PO DAILY #120 tab 03/15/19 07/31/19 diltiazem HCl 120 mg 120 mg PO DAILY #90 cap 04/18/19 07/31/19 capsule,extended release 24 hr tacrolimus 1 mg capsule 1 mg PO .COMPLEX #270 cap 04/18/19 07/31/19 losartan 100 mg tablet 100 mg PO DAILY #90 tab 04/19/19 07/31/19 calcium carbonate 200 mg calcium 200 mg PO BID #180 tab 05/30/19 07/31/19 (500 mg) chewable tablet carvedilol 12.5 mg tablet 12.5 mg PO BID #180 tab 05/30/19 07/31/19 multivitamin 1 tab PO DAILY #90 tab 06/02/19 07/31/19 pantoprazole 20 mg tablet,delayed 20 mg PO DAILY #90 tab 06/02/19 07/31/19 release Previous Rx's Medication Instructions Recorded amlodipine 10 mg tablet 10 mg PO DAILY #90 tab 08/25/18 levothyroxine 100 mcg capsule 100 mcg PO DAILY #90 cap 08/25/18 acetaminophen 500 mg tablet 1,000 mg PO Q6H PRN PRN #30 tab 09/01/18 aspirin 81 mg tablet,delayed 81 mg PO DAILY #90 tab 12/27/18 release levetiracetam 1,000 mg tablet 500 mg PO BID #180 tab 02/21/19 allopurinol 100 mg tablet 150 mg PO DAILY #120 tab 03/15/19 diltiazem HCl 120 mg 120 mg PO DAILY #90 cap 04/18/19 capsule,extended release 24 hr tacrolimus 1 mg capsule 1 mg PO .COMPLEX #270 cap 04/18/19 losartan 100 mg tablet 100 mg PO DAILY #90 tab 04/19/19 calcium carbonate 200 mg calcium 200 mg PO BID #180 tab 05/30/19 (500 mg) chewable tablet carvedilol 12.5 mg tablet 12.5 mg PO BID #180 tab 05/30/19 multivitamin 1 tab PO DAILY #90 tab 06/02/19 pantoprazole 20 mg tablet,delayed 20 mg PO DAILY #90 tab 06/02/19 release Allergies Allergy/AdvReac Type Severity Reaction Status Date / Time hydrochlorothiazide Allergy Mild Verified 07/31/19 12:40 benazepril Allergy Unknown Verified 07/31/19 12:40 codeine Allergy Unknown Verified 07/31/19 12:40 pollen extracts AdvReac Mild chronic Verified 07/31/19 12:40 rhinitis General Stated Complaint: GenMedical SANJUANA: 3 Review of Systems All systems reviewed & are unremarkable except as noted in HPI and below Constitutional Constitutional: Denies chills, Denies fever(s) and Denies weakness Cardiovascular Cardiovascular: Denies chest pain and Denies dyspnea Respiratory Respiratory: Denies cough and Denies dyspnea Gastrointestinal Gastrointestinal: Denies abdominal pain, Denies nausea and Denies vomiting Integumentary/Breasts Skin/Breast: Denies rash Neurologic Neurologic: Denies weakness [facility] Social History Smoking/Tobacco Use Status: Never Alcohol Intake: never Drug use: Never Substance use type: does not use Do you feel safe at home: Yes Do you feel safe in your relationship?: Yes Exam Const General: no acute distress Orientation: alert HENMT Head: normal to inspection Ears: external ears normal General nose exam: external nose normal Mouth: moist mucous membranes Eyes General: appearance normal, both eyes and all related structures Neck Neck: normal visual inspection Resp Effort & Inspection: normal respiratory effort and able to speak in complete sentences Cardio Rate: regular rate Skin General skin exam: no rashes or lesions noted Neuro General: alert and oriented x3 Extrem General: normal to inspection Psych Mental Status: mental status grossly normal Course Vital Signs Vital signs: Vital Signs Temperature 36.5 C 07/31/19 12:38 Pulse 100 H 07/31/19 12:38 Respiratory Rate 16 07/31/19 12:38 Blood Pressure 182/106 H 07/31/19 12:38 Pulse Oximetry 95 07/31/19 12:38 Temperature 36.5 C 07/31/19 12:38 Temperature Source Skin 07/31/19 12:38 Pulse 100 H 07/31/19 12:38 Respiratory Rate 16 07/31/19 12:38 Respiratory Effort Non-Labored 07/31/19 12:38 Blood Pressure 182/106 H 07/31/19 12:38 Blood Pressure Position Sitting 07/31/19 12:38 Pulse Oximetry 95 07/31/19 12:38 Oxygen Delivery Method Room Air 07/31/19 12:38 Oxygen Flow Rate 0 07/31/19 12:38
--- NOTE | 2019-07-31 13:45 | DI.CT_ITS ---
EXAM: CT HEAD WO CLINICAL HISTORY: headache, hx of subdural TECHNIQUE: COMPARISON: CT HEAD WO from 03/18/2019 FINDINGS: Noncontrast cranial CT was performed. There is marked generalized cerebral atrophy. No evidence of acute intracranial hemorrhage, mass effect, or midline shift. The orbital and temporal bone structur es appear intact. Mastoid air cells and paranasal sinuses appear well aerated as visualized. IMPRESSION: No evidence of acute intracranial process.
[2019-07-31 13:54] VITALS: BP 163/86; PULSE 92; RESP 15; TEMP 36.6; O2SAT 93
[2019-07-31] MEDS: Acetaminophen 325 MG TAB (14:10)
[2019-07-31 14:11] VITALS: BP 156/104; PULSE 88; RESP 14; TEMP 36.4; O2SAT 93
[2019-07-31 14:26] VITALS: BP 153/97; PULSE 80; RESP 14; TEMP 36.4; O2SAT 94
== END 2019-07-31 14:19 | disposition home or self-care (01) ==
PROVIDERS: Emergency Provider Emergency Medicine; PCP Emergency Medicine
DX: I12.0 Hypertensive chronic kidney disease with stage 5 chronic kidney disease or end stage renal disease (principal); R51 Headache; N18.6 End stage renal disease; Z99.2 Dependence on renal dialysis
CPT/HCPCS: 99284; 70450

== ENCOUNTER 2019-09-17 09:15 | Emergency (ER) | payer MEDICAID, SELFPAY ==
[2019-09-17] VITALS (52 sets, daily range): BP systolic 54–149; BP diastolic 37–130; PULSE 56–77; RESP 7–34; TEMP 36.5–36.7; O2SAT 81–99
--- NOTE | 2019-09-17 10:01 | NUR.NOTE ---
Nursing Note: Manual BP 72/40. PANCHITO Rosa made aware.
[2019-09-17] MEDS: Normal Saline 250 ML 1000 ML IV (10:16)
[2019-09-17 10:21] LABS: Abs Immature Grans 0.02 k/cumm (0.0-0.09); Absolute Basophil Count 0.04 k/cumm (0.0-0.2); Absolute Eosinophil Count 0.22 k/cumm (0.0-0.7); Absolute Lymphocyte Count 1.68 k/cumm (1.2-3.4); Absolute Monocyte Count 0.77 k/cumm (0.11-0.7); Absolute Neutrophil Count 5.06 k/cumm (1.2-6.7); Basophils % 0.5; Eosinophils % 2.8; HCT 34.4 % (40.0-50.0); HGB 11.5 g/dL (13.5-17.5); Immature Grans % 0.3 %; Lymphocytes % 21.6; Mean Corp. HGB Concentration 33.4 g/dL (32.0-36.0); Mean Corpuscular Hemoglobin 33.1 pg (27.0-33.0); Mean Corpuscular Volume 99.1 fL (80-95); Mean Platelet Volume 8.8 fL (8.0-11.0); Monocytes % 9.9; Neutrophils % 64.9; Platelet Count 257 x1000/uL (130-400); RBC 3.47 m/cumm (4.50-6.00); RBC Distribution Width 14.3 % (11.8-14.1); White Blood Cell Count 7.79 k/cumm (4.4-10.8)
[2019-09-17 10:23] LABS: Lactate 2.6 mmol/L (0.6-1.4)
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
--- NOTE | 2019-09-17 10:42 | NUR.NOTE ---
Nursing Note: Straight cath attempted, unable to get urine sample.
--- NOTE | 2019-09-17 10:50 | DI.RAD_ITS ---
EXAM: XR CHEST 2V PA LATERAL CLINICAL HISTORY: hypotension TECHNIQUE: 2D digital imaging was performed. COMPARISON: XR CHEST 2V PA LATERAL from 12/18/2018 FINDINGS: MEDIASTINUM: Normal. HEART: Normal. PULMONARY VASCULATURE: Normal. LUNGS: Lungs are hyperexpanded with flattened diaphragms consistent with COPD. Atelectasis is seen i n the lung bases. No focal consolidating infiltrates are present. PLEURAL SPACE: No pleural effusion or pneumothorax. BONE:Stable, age-appropriate degenerative changes are present. OTHER FINDINGS:Normal. IMPRESSION: 1. No acute pulmonary findings. 2. COPD. DATA REPOSITORY: RADIATION DOSE DELIVERED:
[2019-09-17 10:52] LABS: ALT 16 U/L (16-63); AST 13 U/L (15-37); Albumin 4.2 g/dL (3.4-5.0); Alkaline Phosphatase 142 U/L (46-116); Anion Gap 11.6 mmol/L (3-11); BUN 54 mg/dL (7-18); Bilirubin, Total 0.7 mg/dL (0.2-1.0); CO2 30.4 mmol/L (21.0-32.0); Calcium 8.3 mg/dL (8.5-10.1); Chloride 98 mmol/L (98-107); Estimated GFR 5.04 (mL/min/1.73m2); Glucose 129 mg/dL (74-106); Magnesium 2.1 mg/dL (1.8-2.4); Potassium 4.6 mmol/L (3.5-5.1); Sodium 140 mmol/L (136-145); Total Protein 8.2 g/dL (6.4-8.2)
[2019-09-17 10:56] LABS: CREATININE 10.58 mg/dL (0.70-1.30); Troponin I < 0.05 ng/Ml (<0.06)
[2019-09-17] MEDS: Normal Saline 250 ML IV (11:11)
--- NOTE | 2019-09-17 11:34 | DI.VRAD_ITS ---
PROCEDURE INFORMATION: Exam: XR Chest, 2 Views Exam date and time: 09/17/2019 11:00 AM Age: 59 years old Clinical indication: Other: Hypotension TECHNIQUE: Imaging protocol: XR of the chest Views: 2 views. COMPARISON: CR XR CHEST 2V PA LATERAL 12/18/2018 2:24 PM FINDINGS: Lungs: Hyperexpanded lung cohen consistent with COPD Bibasilar atelectasis Pleural space: Unremarkable. No pleural effusion. No pneumothorax. Heart/Mediastinum: Unremarkable. No cardiomegaly. Bones/joints: Unremarkable. IMPRESSION: Hyperexpanded lung cohen consistent with COPD Dictated and Authenticated by: Gilda Li MD. Ordering:EDINSON Tejeda MD
--- NOTE | 2019-09-17 12:14 | NUR.NOTE ---
Nursing Note: BP remains at 68/42. PANCHITO Costa made aware. No orders received at this time. Currently awaiting repeat lactic acid.
[2019-09-17 13:56] LABS: Lactate 0.9 mmol/L (0.6-1.4)
--- NOTE | 2019-09-17 16:01 | NUR.NOTE ---
Nursing Note: PT transported back to [facility] by facility accounts receivable representative Rukhsana. At the time of DC the patient is alert to baseline, vitals stable.
== END 2019-09-17 16:07 | disposition designated cancer center or children's hospital (05) ==
PROVIDERS: Emergency Provider Physician Assistant; PCP Emergency Medicine
DX: I95.89 Other hypotension (principal); N18.6 End stage renal disease; Z94.0 Kidney transplant status; Z99.2 Dependence on renal dialysis; I12.0 Hypertensive chronic kidney disease with stage 5 chronic kidney disease or end stage renal disease
CPT/HCPCS: 36415; 51701; 80053; 93005; 96360; 96361; 99285; 71046; 81003; 83605; 83735; 84484; 85025; 93010; 99284

== ENCOUNTER 2019-09-18 08:14 | Emergency (ER) | payer MEDICAID, SELFPAY ==
[2019-09-18] VITALS (72 sets, daily range): BP systolic 52–141; BP diastolic 31–114; PULSE 48–112; RESP 10–24; TEMP 36.2–36.5; O2SAT 82–100
--- NOTE | 2019-09-18 08:36 | ED.GENADUL_ITS ---
Discharge Plan Disposition Patient Disposition: [facility] Condition: Stable Discharge Details Chief Complaint: GenMedical Clinical Impression: Hypotension, Acute UTI Primary Care Provider: Carroll Fuentes ED Provider: Ileana Rosa Home Meds and New Rx's Prescriptions: New cephalexin [Keflex] 500 mg capsule 500 mg PO BID Qty: 10 RF: 0 No Action acetaminophen [Mapap Extra Strength] 500 mg tablet 1,000 mg PO Q6H PRN PRN (Reason: pain (scale score 1-3)) Qty: 30 RF: 8 aspirin 81 mg tablet,delayed release (DR/EC) 81 mg PO DAILY Qty: 90 RF: 4 levetiracetam [Keppra] 1,000 mg tablet 500 mg PO BID Qty: 180 RF: 3 calcium carbonate [Tums] 200 mg calcium (500 mg) tablet,chewable 200 mg PO BID Qty: 180 RF: 3 carvedilol [Coreg] 12.5 mg tablet 12.5 mg PO BID Qty: 180 RF: 3 multivitamin [Multiple Vitamins] Tablet 1 tab PO DAILY Qty: 90 RF: 3 pantoprazole 20 mg tablet,delayed release (DR/EC) 20 mg PO DAILY Qty: 90 RF: 3 amlodipine 10 mg tablet 10 mg PO DAILY Qty: 30 RF: 2 guaifenesin [Mucinex] 600 mg Tablet Extended Release 12hr 600 mg PO Q12H RF: 0 Tirosint 100 mcg Capsule 100 mcg PO DAILY RF: 0 tacrolimus [Prograf] 1 mg capsule 1 mg PO DIRECTED RF: 0 allopurinol 100 mg tablet 150 mg PO QPM RF: 0 losartan 100 mg tablet 100 mg PO QPM RF: 0 Discharge Instructions Instructions: Urinary Tract Infection in Men (ED) Additional Instructions: Use antibiotic as prescribed. Continue drinking fluids Per the recommendations of nephrology stop minoxidil as well as Cardizem. They will arrange to begin amlodipine 10 mg. He may continue carvedilol. You should have dialysis tomorrow. Follow-up promptly with your primary care doctor. Follow-up with Holter monitor with primary care doctor. Follow instructions provided. Return immediately for any worsening, concerns or alarming symptoms if needed. Return for chest pain, dizziness, syncope, weakness or ill feeling if needed sooner. Discharge Data Discharge Date/Time-TO BE ENTERED AT DEPARTURE: 09/18/19 16:19 Medical Decision Making Is a 59-year-old patient presenting to the emergency room after being evaluated at dialysis this morning. Patient was sent to the emergency room for hypotension which was noted throughout his extremities. Patient had a blood pressure of 60/40. Patient had no associated symptoms at that time. Patient remains asymptomatic upon arrival to the emergency room. Patient denies headache, dizziness, weakness, fatigue, chest pain, difficulty breathing shortness of breath or wheezing. Has no abdominal complaints at this time. Patient is currently alert and oriented x3. There was report from dialysis that he was having difficulty ambulating. Patient upon arrival from EMS was able to transfer from the stretcher to the bed and walk approximately 5 or 6 steps without any difficulty. Patient was evaluated in the emergency room yesterday for hypertension initially and after having reportedly buckled of the knees the day before and was lowered to the ground did not have a reported fall or obvious trauma resulting. Denied head strike. On arrival to the emergency room yesterday had a notable blood pressure reading which was hypertensive which after repeat was noted to be hypotensive. Patient received judicial fluids at 250 cc for bolus initially. Patient did have a lactate elevation which after another 250 cc for a total of 500 cc was repeated and normalized. Patient blood pressure remained low and he was given an additional 500 cc of fluid. Patient had a chest x-ray which was normal. Labs which were not reflective of an infection. Patient did have a urinary catheter early in his course of evaluation yesterday and was unable to get urine for urinalysis, after fluid was provided patient refused to have an additional urinary catheter placed for urinalysis yet denied any urinary symptoms and requested discharge home at that time. Patient's medical history does include an additional blood pressure medicine which was added 2 months ago specifically minoxidil 2.5 mg. Patient had flowsheet sent from [place] and which reveal hyper and hypotension without specific pattern some blood pressures too low to read this is been going on for greater than 1 month from flowsheets that I can see and reportedly for medical charts I evaluated patient had hypotension noted over the last year. Patient's initial blood pressure on arrival to the emergency room was 60/31 in the lower leg when repeated it was 108/91. Patient's heart rate 55, respirations easy and O2 sat 100%. Patient's breath sounds are currently clear. Spoke with Dr. Rukhsana Murray, who recommended having liter of Levophed and IV access available if needed for any change in mental status or if symptoms begin to develop. At current again patient is mentating normally, alert and oriented x3 and feels asymptomatic. Patient remained hypotensive for several blood pressure checks. Patient continues to feel asymptomatic at this time. Labs reevaluated. Patient did have notable increase in potassium as well as creatinine, somewhat expected after not receiving dialysis today. Spoke with gastroenterologist in [facility], Jose Paul MD, who made recommendations to hold on dialysis this morning. He was concerned with a reported heart rate of 93 per nursing staff as well as hypotension and patient seemed to have a decrease mental status. This is quite different than his presentation to the emergency room today. Made recommended a follow-up with hospitalist at [facility] for hypotension evaluation. And for concern of possible sick sinus syndrome or cardiac etiology of hypotension as he does not feel it is likely related to dialysis. Spoke with internal medicine hospitalist at [facility] who does not feel the patient requires transfer at this time as he is stable and asymptomatic. After discussion he does not feel that sick sinus syndrome is likely as patient does not have associated heart rate changes associated with blood pressure changes. Heart rate remains steady throughout evaluation in the emergency room both yesterday and today. He does feel he may have an autonomic dysregulation of his blood pressure, for which transfer at this time would not be beneficial. He does recommend admission locally and follow-up with his outpatient dialysis as planned. Spoke with hospitalist at [facility] to does not feel comfortable admitting patient as he is a dialysis patient. Patient's blood pressures are slowly improving. Patient did hold on his blood pressure medication this morning. Spoke again with gastroenterologist at [facility] who will speak with dialysis to try to come up with a plan for patient getting dialysis in the community as he did miss today. Call back from dialysis who is able to dialyze the patient in the community tomorrow. They have made recommendations to DC minoxidil as well as Cardizem and replace with amlodipine 10 mg and continue carvedilol previously prescribed. I agree that likely patient's hypotension and intermittent hypertension could be due to autonomic dysregulation of his blood pressure. Given noted hypertension intermittently patient is on several blood pressure medications which are likely dropping his blood pressure too low. Most recently minoxidil was added which is likely the cause of his new hypotension. I feel this is a reasonable plan of care as patient's blood pressures do continue to normalize. Patient can be dialyzed tomorrow. I did speak with his primary care doctor Dr. Vee covering his PCP who feels comfortable with this plan of care, will follow-up in the community and agrees with blood pressure changes. Patient to be discharged back to [place], will recommend nursing staff closely monitor his blood pressure. His gastroenterologist have called in blood pressure medications and made changes with [place]. Patient agrees with this plan of care. HPI General Date/Time Provider Initiated Documentation: 09/18/19 08:26 . HPI Narrative: Is a 59-year-old patient who is alert and oriented x3 presenting to the emergency room at the recommendation of dialysis this morning. Patient was seen at dialysis and had a noted blood pressure that was 60/40. They did not feel comfortable dialyzing him, spoke with his gastroenterologist from [facility]. His [facility] gastroenterologist recommended emergency room evaluation and transfer to [facility]. Patient presents asymptomatic. Patient was seen in the emergency room yesterday for hypertension followed by subsequent hypotension. Patient remained asymptomatic throughout his emergency room course. Patient's blood pressures did begin to normalize and he was discharged back to [place] in last evening. Patient again reports feeling asymptomatic at this time. Denies headache or dizziness. Denies lightheadedness. Denies chest pain, difficulty breathing shortness of breath or wheezing. Has no abdominal complaints. Ate breakfast without difficulty this morning. Does report scant urine output. Denies bowel changes. Denies any lower extremity pain. There was a report from dialysis that he was having difficulty ambulating. Related Data Home Medications Medication Instructions Recorded Confirmed acetaminophen 500 mg tablet 1,000 mg PO Q6H PRN PRN #30 tab 09/01/18 09/18/19 guaifenesin [Mucinex] 600 mg PO Q12H 12/17/18 09/18/19 aspirin 81 mg tablet,delayed 81 mg PO DAILY #90 tab 12/27/18 09/18/19 release levetiracetam 1,000 mg tablet 500 mg PO BID #180 tab 02/21/19 09/18/19 calcium carbonate 200 mg calcium 200 mg PO BID #180 tab 05/30/19 09/18/19 (500 mg) chewable tablet carvedilol 12.5 mg tablet 12.5 mg PO BID #180 tab 05/30/19 09/18/19 multivitamin 1 tab PO DAILY #90 tab 06/02/19 09/18/19 pantoprazole 20 mg tablet,delayed 20 mg PO DAILY #90 tab 06/02/19 09/18/19 release Tirosint 100 mcg PO DAILY 09/17/19 09/18/19 tacrolimus [Prograf] 1 mg PO DIRECTED 09/17/19 09/18/19 allopurinol 150 mg PO QPM 09/18/19 09/18/19 amlodipine 10 mg tablet 10 mg PO DAILY #30 tab 09/18/19 cephalexin [Keflex] 500 mg PO BID #10 cap 09/18/19 losartan 100 mg PO QPM 09/18/19 09/18/19 Previous Rx's Medication Instructions Recorded acetaminophen 500 mg tablet 1,000 mg PO Q6H PRN PRN #30 tab 09/01/18 aspirin 81 mg tablet,delayed 81 mg PO DAILY #90 tab 12/27/18 release levetiracetam 1,000 mg tablet 500 mg PO BID #180 tab 02/21/19 calcium carbonate 200 mg calcium 200 mg PO BID #180 tab 05/30/19 (500 mg) chewable tablet carvedilol 12.5 mg tablet 12.5 mg PO BID #180 tab 05/30/19 multivitamin 1 tab PO DAILY #90 tab 06/02/19 pantoprazole 20 mg tablet,delayed 20 mg PO DAILY #90 tab 06/02/19 release amlodipine 10 mg tablet 10 mg PO DAILY #30 tab 09/18/19 cephalexin [Keflex] 500 mg PO BID #10 cap 09/18/19 Allergies Allergy/AdvReac Type Severity Reaction Status Date / Time hydrochlorothiazide Allergy Mild Verified 09/18/19 08:23 benazepril Allergy Unknown Verified 09/18/19 08:23 codeine Allergy Unknown Verified 09/18/19 08:23 pollen extracts AdvReac Mild chronic Verified 09/18/19 08:23 rhinitis General Stated Complaint: GenMedical SANJUANA: 3 Review of Systems All systems reviewed & are unremarkable except as noted in HPI and below Constitutional Constitutional: Denies chills, Denies fatigue, Denies fever(s), Denies headache(s), Denies malaise and Denies weakness ENT Ears, Nose, Mouth, and Throat: Denies vertigo, Denies dizziness, Denies headache(s) and Denies neck pain Cardiovascular Cardiovascular: Denies chest pain, Denies syncope and Denies dyspnea Respiratory Respiratory: Denies chest congestion, Denies cough, Denies pain with cough, Denies dyspnea and Denies wheezing Gastrointestinal Gastrointestinal: Denies abdominal pain, Denies diarrhea, Denies nausea and Denies vomiting Genitourinary Genitourinary: Denies dysuria Musculoskeletal Musculoskeletal: Denies back pain and Denies neck pain Neurologic Neurologic: Denies vertigo, Denies dizziness, Denies syncope, Denies headache(s) and Denies weakness Endocrine Endocrine: Denies fatigue Allergic/Immunologic Allergic/Immunologic: Denies wheezing PFSH Family History Mother Diabetes Social History Smoking/Tobacco Use Status: Never Alcohol Intake: never Drug use: Never Substance use type: does not use Do you feel safe at home: Yes Do you feel safe in your relationship?: Yes Exam Narrative Exam Narrative: CONST: Patient in no acute distress. Alert and oriented. HENMT: Head nomocephalic, normal to inspection. Atraumatic. Hearing grossly normal. External ear canal no erythema or swelling. TM normal bilaterally. Nose normal to inspection. No rhinnorhea. Normal facial exam. Oral mucosa normal. Tounge normal. Dentition normal. Normal posterior oropharynx. Uvula midline. EYES: General normal appearance. Alignment normal. Eyelids normal. Conjunctiva normal. Sclera normal. PERRL. NECK: Normal visual inspection. FROM. No lymphadenopathy. Trachea midline. No Midline tenderness. CHEST: Normal insepection of the chest. RESP: Normal respiratory effort. Speaking full sentences. No cough. No wheezing. No retractions. Clear to auscaltation. Breath sound equal and present bilaterally. CARDIO: No JVD. Normal PMI. Regular Rate. Regular Rhythm. Normal peripheral pulses. GI: Normal inspection of abdomen. No distension. Soft. Nontender. Bowel sounds present in all 4 quadrants. No rebound. No gaurding. MUSCULOSKELETAL: Normal Gait. FROM of all extremities. Distal neurovascularly intact. Sensation intact distally. Mild distal edema present bilaterally SKIN: Normal. Dry. No rashes. NEURO: Alert and awake. Speech clear. Alert and oriented x 3. Speech is clear. Cranial nerves intact as tested III - XI. Normal [id number] test. No Nystagmus. Gait normal. Strength intact in all extremities. Sensation intact in all extremities. PSYCH: Normal affect. Cooperative. Course Vital Signs Vital signs: Vital Signs Temperature 36.2 C L 09/18/19 08:16 Pulse 56 L 09/18/19 08:16 Respiratory Rate 18 09/18/19 08:16 Blood Pressure 60/31 L 09/18/19 08:16 Pulse Oximetry 100 09/18/19 08:16 Temperature 36.2 C L 09/18/19 08:16 Temperature Source Skin 09/18/19 08:16 Pulse 55 L 09/18/19 08:35 Respiratory Rate 18 09/18/19 08:16 Blood Pressure 108/91 H 09/18/19 08:35 Blood Pressure Position Sitting 09/18/19 08:16 Pulse Oximetry 97 09/18/19 08:35 Oxygen Delivery Method Room Air 09/18/19 08:35 Oxygen Flow Rate 0 09/18/19 08:35
--- NOTE | 2019-09-18 08:45 | DI.RAD_ITS ---
EXAM: XR CHEST 2V PA LATERAL CLINICAL HISTORY: hypotension TECHNIQUE: 2D digital imaging was performed. COMPARISON: XR CHEST 2V PA LATERAL from 09/17/2019 FINDINGS: MEDIASTINUM: Normal. HEART: Normal. PULMONARY VASCULATURE: Normal. LUNGS: Atelectasis and scarring in the lung bases. No focal consolidating infiltrate. There is hype rinflation of the lungs with flattened diaphragms consistent with underlying COPD. PLEURAL SPACE: No pleural effusion or pneumothorax. BONE:Within normal limits for the patient's age. OTHER FINDINGS:Normal. IMPRESSION: No acute pulmonary findings. DATA REPOSITORY: RADIATION DOSE DELIVERED:
--- NOTE | 2019-09-18 08:45 | DI.CT_ITS ---
EXAM: CT HEAD WO CLINICAL HISTORY: hypotension, hx Subarachnoid bleeding. TECHNIQUE: Imaging Protocol: Axial computed tomography images with coronal and sagittal reformatted images were created and reviewed COMPARISON: CT HEAD WO from 07/31/2019 FINDINGS: Ventricles and Extra axial spaces: There is global mild cerebral atrophy. Hemorrhage: None. Cerebral parenchyma: There are areas of decreased attenuation in the white matter most consistent wit h small vessel ischemic disease. Midline shift: None. Brainstem/Cerebellum: Normal. Calvarium: Normal. Visualized Paranasal sinuses/Mastoids: There is mild mucosal thickening in the left sphenoid sinus. The remaining visualized paranasal sinuses are clear. Mastoid air cells are well pneumatized. IMPRESSION: No acute intracranial process. These findings were discussed with the emergency department on the date of the examination. RADIATION DOSE DELIVERED: DATA REPOSITORY: All CT scans at this facility are submitted to the National Radiology Data Registry (NRDR) Dose Index Registry (DIR) with the [employer] ([employer]). RADIATION OPTIMIZATION: All CT scans at this facility use at least one of these dose optimization te chniques: automated exposure control; mA and/or kV adjustment per patient size (includes targeted exa ms where dose is matched to clinical indication); or iterative reconstruction.
[2019-09-18 09:29] LABS: Abs Immature Grans 0.01 k/cumm (0.0-0.09); Absolute Basophil Count 0.03 k/cumm (0.0-0.2); Absolute Eosinophil Count 0.16 k/cumm (0.0-0.7); Absolute Lymphocyte Count 1.09 k/cumm (1.2-3.4); Absolute Monocyte Count 0.57 k/cumm (0.11-0.7); Absolute Neutrophil Count 3.48 k/cumm (1.2-6.7); Basophils % 0.6; HCT 30.2 % (40.0-50.0); HGB 10.1 g/dL (13.5-17.5); Immature Grans % 0.2 %; Lymphocytes % 20.4; Mean Corp. HGB Concentration 33.4 g/dL (32.0-36.0); Mean Corpuscular Hemoglobin 32.7 pg (27.0-33.0); Mean Corpuscular Volume 97.7 fL (80-95); Mean Platelet Volume 8.4 fL (8.0-11.0); Monocytes % 10.7; Neutrophils % 65.1; Platelet Count 197 x1000/uL (130-400); RBC 3.09 m/cumm (4.50-6.00); RBC Distribution Width 14.1 % (11.8-14.1); White Blood Cell Count 5.34 k/cumm (4.4-10.8)
[2019-09-18 09:32] LABS: Lactate 1.1 mmol/L (0.6-1.4)
[2019-09-18 09:57] LABS: ALT 15 U/L (16-63); AST 13 U/L (15-37); Albumin 3.6 g/dL (3.4-5.0); Alkaline Phosphatase 120 U/L (46-116); Anion Gap 12.8 mmol/L (3-11); BUN 66 mg/dL (7-18); Bilirubin, Total 0.8 mg/dL (0.2-1.0); CO2 27.2 mmol/L (21.0-32.0); Calcium 7.4 mg/dL (8.5-10.1); Chloride 100 mmol/L (98-107); Estimated GFR 4.09 (mL/min/1.73m2); Glucose 127 mg/dL (74-106); Potassium 5.2 mmol/L (3.5-5.1); Sodium 140 mmol/L (136-145); Total Protein 7.1 g/dL (6.4-8.2)
[2019-09-18 10:01] LABS: CREATININE 12.68 mg/dL (0.70-1.30)
[2019-09-18 10:10] LABS: TSH (W/Ref FT4) 2.88 uIU/mL (0.36-3.74)
[2019-09-18 10:17] LABS: Troponin I < 0.05 ng/Ml (<0.06)
[2019-09-18 10:58] LABS: Bilirubin Small (Negative); Blood Large (Negative); Clarity Sl Cloudy (Clear); Glucose Negative (Negative); Ketones Trace mg/dL (Negative); Leukocyte Esterase Large (Negative); Nitrite Negative (Negative); Specific Gravity >= 1.030 (1.005-1.025); Urobilinogen 0.2 EU/dL (Up TO 0.2); pH 5.5 (5-8)
[2019-09-18 11:28] LABS: Bacteria Moderate HPF (Negative); Casts Negative LPF (Negative); Crystals Negative HPF (Negative); Epithelial Cells Few HPF (Negative); Mucus Negative (Negative); WBC >50 HPF (0-5)
[2019-09-18 11:29] LABS: C & S Indicated? Yes
[2019-09-18] MEDS: Cephalexin 500 MG CAP PO (13:09)
== END 2019-09-18 16:19 | disposition designated cancer center or children's hospital (05) ==
PROVIDERS: Emergency Provider Physician Assistant; PCP Emergency Medicine
DX: I95.89 Other hypotension (principal); N39.0 Urinary tract infection, site not specified; N18.6 End stage renal disease; Z99.2 Dependence on renal dialysis; I12.0 Hypertensive chronic kidney disease with stage 5 chronic kidney disease or end stage renal disease; Z94.0 Kidney transplant status
CPT/HCPCS: 36410; 36415; 80053; 87040; 93005; 99285; 70450; 71046; 81003; 81015; 83605; 84443; 84484; 85025; 87086; 93010; 93225

== ENCOUNTER 2019-09-20 18:20 | Outpatient (CLI) | payer MEDICAID, SELFPAY ==
--- NOTE | 2019-09-21 08:33 | W.HOLTRPT ---
Date of service: 09/21/19 Time of Service: 08:33 Holter Monitor Report Holter Monitor Note: This is a 1 day Holter monitor ordered for the indication of hypotension. ?Patient was in normal sinus rhythm for the majority of the recording. ?There were no episodes of supraventricular tachycardia and 18 single premature atrial contractions. ?There were no episodes of ventricular tachycardia and 0 ventricular ectopic beats. ?There were no episodes of atrial fibrillation no pauses greater than 3 seconds and no evidence of high degree heart block. ?There were no patient triggered events.
== END 2019-09-20 18:40 ==
PROVIDERS: PCP Emergency Medicine; Visit Provider Physician Assistant
DX: I95.89 Other hypotension (principal)
CPT/HCPCS: 93226

== ENCOUNTER 2019-12-18 08:24 | Emergency (ER) | payer MEDICAID, SELFPAY ==
[2019-12-18] VITALS (29 sets, daily range): BP systolic 63–100; BP diastolic 14–65; PULSE 55–78; RESP 11–19; TEMP 36.6–36.8; O2SAT 89–96
--- NOTE | 2019-12-18 08:37 | ED.GENADUL_ITS ---
Discharge Plan Disposition Patient Disposition: HOME Condition: Stable Discharge Details Chief Complaint: Nausea/Vomit/Diar Clinical Impression: Vomiting, Chronic hypotension Primary Care Provider: Carroll Fuentes ED Provider: Evon Fernandes Home Meds and New Rx's Prescriptions: Continued acetaminophen [Mapap Extra Strength] 500 mg tablet 1,000 mg PO Q6H PRN PRN (Reason: pain (scale score 1-3)) Qty: 30 RF: 8 aspirin 81 mg tablet,delayed release (DR/EC) 81 mg PO DAILY Qty: 90 RF: 4 carvedilol [Coreg] 12.5 mg tablet 12.5 mg PO BID Qty: 180 RF: 3 pantoprazole 20 mg tablet,delayed release (DR/EC) 20 mg PO DAILY Qty: 90 RF: 3 allopurinol 100 mg tablet 150 mg PO QPM Qty: 120 RF: 4 losartan 50 mg tablet 50 mg PO DAILY Qty: 90 RF: 3 tacrolimus [Prograf] 1 mg capsule 1 mg PO DIRECTED Qty: 90 RF: 3 levetiracetam [Keppra] 1,000 mg tablet 500 mg PO BID Qty: 180 RF: 3 multivitamin [Multiple Vitamins] Tablet 1 tab PO DAILY Qty: 90 RF: 3 calcium carbonate [Tums] 200 mg calcium (500 mg) tablet,chewable 200 mg PO BID Qty: 180 RF: 3 guaifenesin [Mucinex] 600 mg Tablet Extended Release 12hr 600 mg PO Q12H RF: 0 Tirosint 100 mcg Capsule 100 mcg PO DAILY RF: 0 Discharge Instructions Instructions: Acute Nausea and Vomiting (ED) Additional Instructions: Take the Zofran as needed and directed for nausea and vomiting. Continue to drink fluids in the advised amount that you are allowed considering your history of end-stage renal disease. Go directly to the dialysis center today to finish your scheduled session. Have your primary care doctor follow-up with the result of your Keppra level blood test that was drawn today to make sure that your level is within a therapeutic range. Return to the emergency department if you develop any worsening or new concerning symptoms. Discharge Data Discharge Physician: Evon Fernandes Medical Decision Making [id number] -- 59-year-old male with history of TBI, chronic gait instability with use of arm braces, end-stage renal disease on dialysis who presents for vomiting x2 at dialysis today. Only completed 1 hour dialysis. BP 79/48 per EMS. He has no acute complaints on arrival. BP 77/49. Remainder vitals within normal limits. Upon review of previous records, patient has had frequent bouts of hypotension when seen in the ED previously. It was also reported that he fell over the weekend at [place] and was no report of injury. Patient has a known history of gait instability with frequent falls. He appears in no acute distress. Abdomen soft nontender. Lungs clear. Moving all extremities. We will check screening labs, urinalysis, give small bolus of fluids a dose of Zofran and attempt p.o. challenge. If work-up unremarkable and patient feels at baseline, will plan for discharge back to dialysis to finish his scheduled session today. 1100 --labs and imaging reviewed. Normal white blood cell count. Potassium 5.9 and creatinine 9.91 consistent with chronic renal failure. Patient unable to give a urine sample but he has no urinary complaints. Chest x-ray negative for acute disease. BP 100/49. Patient has no acute complaints. He feels good to go back to dialysis. Nurse discussed with Meghna Viera from [facility] who stated that there are a couple providers who are managing his BP and recently stopped one of his BP meds for his chronic hypotension - she was notified of plan for return to dialysis. I discussed case with clinical cytology laboratory manager Rhina at dialysis center and she stated that it was thought that patient also had a possible seizure which we were not informed. She states that his legs were shaking and his eyes rolled back around the time of his vomiting. Patient does have a known seizure disorder for which he takes Keppra which he took today. A Keppra level was ordered. Patient has been awake and alert since arrival without new focal deficits. Advised to follow-up with PCP for Keppra level result. Zofran given to go. Usual and customary return precautions given prior to discharge. Medical Records Medical records reviewed: Yes I reviewed the patient's medical records. Imaging Data Radiologic Study: Radiologist's impression: XR PORTABLE CHEST AP CLINICAL HISTORY: cough, vomiting, r/o acute disease TECHNIQUE: 2D digital imaging was performed. COMPARISON: No exams were available for comparison FINDINGS: MEDIASTINUM: Normal. HEART: Normal. PULMONARY VASCULATURE: Normal. LUNGS: Clear. PLEURAL SPACE: No pleural effusion or pneumothorax. BONE:Normal. OTHER FINDINGS:Normal. IMPRESSION: No acute pulmonary findings. Lab Data Lab results reviewed: Yes I reviewed the patient's lab results. Labs: Laboratory Tests Range/Units 12/18/19 12/18/19 09:06 09:06 WBC (4.4-10.8) k/cumm 7.21 RBC (4.50-6.00) m/cumm 3.55 L Hgb (13.5-17.5) g/dL 11.8 L Hct (40.0-50.0) % 35.2 L MCV (80-95) fL 99.2 H MCH (27.0-33.0) pg 33.2 H MCHC (32.0-36.0) g/dL 33.5 RDW (11.8-14.1) % 12.8 Plt Count (130-400) x1000/uL 192 MPV (8.0-11.0) fL 8.5 Immature Gran % % 0.3 Neutrophils % 74.7 Lymphocytes % 13.0 Monocytes % 7.6 Eosinophils % 4.0 Basophils % 0.4 Absolute Neutrophils (1.2-6.7) k/cumm 5.38 Absolute Lymphocytes (1.2-3.4) k/cumm 0.94 L Absolute Monocytes (0.11-0.7) k/cumm 0.55 Absolute Eosinophils (0.0-0.7) k/cumm 0.29 Absolute Basophils (0.0-0.2) k/cumm 0.03 Sodium (136-145) mmol/L 139 Potassium (3.5-5.1) mmol/L 5.9 H Chloride (98-107) mmol/L 96 L Carbon Dioxide (21.0-32.0) mmol/L 33.9 H Anion Gap (3-11) mmol/L 9.1 BUN (7-18) mg/dL 55 H Creatinine (0.70-1.30) mg/dL 9.91 H* Estimated GFR/1.73 m2 (mL/min/1.73m2) 5.44 Glucose (74-106) mg/dL 141 H Calcium (8.5-10.1) mg/dL 8.8 Total Bilirubin (0.2-1.0) mg/dL 0.8 AST (15-37) U/L 18 ALT (16-63) U/L 24 Alkaline Phosphatase (46-116) U/L 143 H Total Protein (6.4-8.2) g/dL 8.1 Albumin (3.4-5.0) g/dL 4.0 ECG Data Attestation: I personally reviewed and interpreted this ECG (s) as follows: Interpretation: rate of 56bpm. Sinus. No acute ST elevation or depression. OK 162. QTc 409. QRS 100. HPI General Mode of arrival: EMS . Date/Time Provider Initiated Documentation: 12/18/19 08:32 . Limitations to Documentation: physical limitation and other (h/o TBI) . Information obtained by: patient . HPI Narrative: Patient is a 59-year-old male with a history of TBI, subdural hematoma, chronic gait instability with use of arm braces with ambulation, frequent episodes of hypotension, end-stage renal disease on dialysis who presents for vomiting x2 at dialysis this morning. Patient states he felt fine this morning upon wakening at the [facility] and states he ate breakfast. He states he felt fine initially at dialysis and then vomited twice. Denies any recent antibiotics, hospital admission or change in foods. Denies any nausea at present and denies any other acute complaints. He denies fever, chest pain, shortness of breath, abdominal pain, urinary symptoms, headache, dizziness. Patient had only completed 1 hour of dialysis when he had vomiting and was sent here to the ED. He was noted to have blood pressure 70s/40s in route. Report per [place] in was that patient had fallen on Wednesday with no reported injury. Related Data Home Medications Medication Instructions Recorded Confirmed acetaminophen 500 mg tablet 1,000 mg PO Q6H PRN PRN #30 tab 09/01/18 12/18/19 guaifenesin [Mucinex] 600 mg PO Q12H 12/17/18 12/18/19 aspirin 81 mg tablet,delayed 81 mg PO DAILY #90 tab 12/27/18 12/18/19 release carvedilol 12.5 mg tablet 12.5 mg PO BID #180 tab 05/30/19 12/18/19 pantoprazole 20 mg tablet,delayed 20 mg PO DAILY #90 tab 06/02/19 12/18/19 release Tirosint 100 mcg PO DAILY 09/17/19 12/18/19 allopurinol 100 mg tablet 150 mg PO QPM #120 tab 10/27/19 12/18/19 losartan 50 mg tablet 50 mg PO DAILY #90 tab 10/27/19 12/18/19 tacrolimus 1 mg capsule 1 mg PO DIRECTED #90 cap 11/10/19 12/18/19 levetiracetam 1,000 mg tablet 500 mg PO BID #180 tab 11/15/19 12/18/19 multivitamin 1 tab PO DAILY #90 tab 12/08/19 12/18/19 calcium carbonate 200 mg calcium 200 mg PO BID #180 tab 12/13/19 12/18/19 (500 mg) chewable tablet Previous Rx's Medication Instructions Recorded acetaminophen 500 mg tablet 1,000 mg PO Q6H PRN PRN #30 tab 09/01/18 aspirin 81 mg tablet,delayed 81 mg PO DAILY #90 tab 12/27/18 release carvedilol 12.5 mg tablet 12.5 mg PO BID #180 tab 05/30/19 pantoprazole 20 mg tablet,delayed 20 mg PO DAILY #90 tab 06/02/19 release allopurinol 100 mg tablet 150 mg PO QPM #120 tab 10/27/19 losartan 50 mg tablet 50 mg PO DAILY #90 tab 10/27/19 tacrolimus 1 mg capsule 1 mg PO DIRECTED #90 cap 11/10/19 levetiracetam 1,000 mg tablet 500 mg PO BID #180 tab 11/15/19 multivitamin 1 tab PO DAILY #90 tab 12/08/19 calcium carbonate 200 mg calcium 200 mg PO BID #180 tab 12/13/19 (500 mg) chewable tablet Allergies Allergy/AdvReac Type Severity Reaction Status Date / Time hydrochlorothiazide Allergy Mild Verified 12/18/19 08:33 benazepril Allergy Unknown Verified 12/18/19 08:33 codeine Allergy Unknown Verified 12/18/19 08:33 pollen extracts AdvReac Mild chronic Verified 12/18/19 08:33 rhinitis General Stated Complaint: Nausea/Vomit/Diar SANJUANA: 3 Review of Systems All systems reviewed & are unremarkable except as noted in HPI and below Constitutional Constitutional: Reports as per HPI, Denies chills and Denies fever(s) Eyes Eyes: Denies blurry vision ENT Ears, Nose, Mouth, and Throat: Denies dizziness, Denies sore throat and Denies throat swelling Cardiovascular Cardiovascular: Denies chest pain and Denies dyspnea Respiratory Respiratory: Denies cough and Denies dyspnea Gastrointestinal Gastrointestinal: Denies abdominal pain, Denies diarrhea and Reports vomiting Genitourinary Genitourinary: Denies hematuria and Denies dysuria Musculoskeletal Musculoskeletal: Denies back pain and Denies numbness Integumentary/Breasts Skin/Breast: Denies lesions and Denies rash Neurologic Neurologic: Denies dizziness, Denies localized weakness and Denies numbness Allergic/Immunologic Allergic/Immunologic: Denies throat swelling [facility] Social History Smoking/Tobacco Use Status: Never Alcohol Intake: never Drug use: Never Substance use type: does not use Do you feel safe at home: Yes Do you feel safe in your relationship?: Yes Exam Const General: cooperative and no acute distress Orientation: alert and awake HENMT Head: normal to inspection Ears: hearing grossly normal bilaterally and external ears normal General nose exam: external nose normal Face and sinus: normal facial exam Mouth: oral mucosae normal and moist mucous membranes Eyes General: appearance normal, both eyes and all related structures Pupils: PERRL EOM: EOM intact bilaterally Neck Neck: normal visual inspection and No submandibular swelling Lymphatic: no lymphadenopathy noted Chest Chest: normal inspection of the chest and no tenderness Resp Effort & Inspection: normal respiratory effort and able to speak in complete sentences Auscultation: clear to auscultation bilaterally Cardio Rate: regular rate Rhythm: regular rhythm GI Inspection: normal to inspection Palpation: soft, not firm, not rigid and nontender Auscultation: normal bowel sounds Skin General skin exam: no rashes or lesions noted Neuro General: patient alert, patient awake and moves all extremities Cognition: normal cognition Speech: speech normal Motor: muscle tone normal throughout Sensory Exam: no sensory deficits noted Extrem General: normal to inspection, full ROM, capillary refill normal, no calf tenderness bilaterally and no edema Psych Appearance: grossly normal Mental Status: mental status grossly normal Speech and Movement: speech and movement normal Affect: normal affect Course Vital Signs Vital signs: Vital Signs Temperature 98.2 F 12/18/19 08:27 Pulse 64 12/18/19 08:27 Respiratory Rate 18 12/18/19 08:27 Blood Pressure 77/49 L 12/18/19 08:27 Pulse Oximetry 96 12/18/19 08:27 Temperature 98.2 F 12/18/19 08:27 Temperature Source Skin 12/18/19 08:27 Pulse 64 12/18/19 08:27 Respiratory Rate 18 12/18/19 08:27 Respiratory Effort Non-Labored 12/18/19 08:27 Blood Pressure 77/49 L 12/18/19 08:27 Blood Pressure Position Supine 12/18/19 08:27 Pulse Oximetry 96 12/18/19 08:27 Oxygen Delivery Method Room Air 12/18/19 08:27 Oxygen Flow Rate 0 12/18/19 08:27 Pain Level 0 12/18/19 08:27
[2019-12-18] MEDS: Normal Saline 250 ML 500 ML IV (09:10)
[2019-12-18] MEDS: Ondansetron 4 MG/2 ML VIAL IVP (09:11)
[2019-12-18 09:13] LABS: Abs Immature Grans 0.02 k/cumm (0.0-0.09); Absolute Basophil Count 0.03 k/cumm (0.0-0.2); Absolute Eosinophil Count 0.29 k/cumm (0.0-0.7); Absolute Lymphocyte Count 0.94 k/cumm (1.2-3.4); Absolute Monocyte Count 0.55 k/cumm (0.11-0.7); Absolute Neutrophil Count 5.38 k/cumm (1.2-6.7); Basophils % 0.4; HCT 35.2 % (40.0-50.0); HGB 11.8 g/dL (13.5-17.5); Immature Grans % 0.3 %; Mean Corp. HGB Concentration 33.5 g/dL (32.0-36.0); Mean Corpuscular Hemoglobin 33.2 pg (27.0-33.0); Mean Corpuscular Volume 99.2 fL (80-95); Mean Platelet Volume 8.5 fL (8.0-11.0); Monocytes % 7.6; Neutrophils % 74.7; Platelet Count 192 x1000/uL (130-400); RBC 3.55 m/cumm (4.50-6.00); RBC Distribution Width 12.8 % (11.8-14.1); White Blood Cell Count 7.21 k/cumm (4.4-10.8)
[2019-12-18 09:27] LABS: ALT 24 U/L (16-63); AST 18 U/L (15-37); Alkaline Phosphatase 143 U/L (46-116); Anion Gap 9.1 mmol/L (3-11); BUN 55 mg/dL (7-18); Bilirubin, Total 0.8 mg/dL (0.2-1.0); CO2 33.9 mmol/L (21.0-32.0); Calcium 8.8 mg/dL (8.5-10.1); Chloride 96 mmol/L (98-107); Estimated GFR 5.44 (mL/min/1.73m2); Glucose 141 mg/dL (74-106); Potassium 5.9 mmol/L (3.5-5.1); Sodium 139 mmol/L (136-145); Total Protein 8.1 g/dL (6.4-8.2)
[2019-12-18 09:28] LABS: CREATININE 9.91 mg/dL (0.70-1.30)
[2019-12-18] MEDS: Normal Saline 250 ML IV (09:53)
--- NOTE | 2019-12-18 10:23 | DI.RAD_ITS ---
EXAM: XR PORTABLE CHEST AP CLINICAL HISTORY: cough, vomiting, r/o acute disease TECHNIQUE: 2D digital imaging was performed. COMPARISON: No exams were available for comparison FINDINGS: MEDIASTINUM: Normal. HEART: Normal. PULMONARY VASCULATURE: Normal. LUNGS: Clear. PLEURAL SPACE: No pleural effusion or pneumothorax. BONE:Normal. OTHER FINDINGS:Normal. IMPRESSION: No acute pulmonary findings. DATA REPOSITORY: RADIATION DOSE DELIVERED:
[2019-12-18] MEDS: Ondansetron O.D.T. 4 MG TABEF, 3 TABS/BTL PO (11:18)
[2019-12-20 10:58] LABS: Levetiracetam 26.3 mcg/mL
== END 2019-12-18 11:25 | disposition home or self-care (01) ==
PROVIDERS: Emergency Provider Physician Assistant; PCP Emergency Medicine
DX: I95.89 Other hypotension (principal); R11.2 Nausea with vomiting, unspecified; N18.6 End stage renal disease; Z99.2 Dependence on renal dialysis; R26.89 Other abnormalities of gait and mobility; G40.909 Epilepsy, unspecified, not intractable, without status epilepticus
CPT/HCPCS: 36415; 80053; 93005; 96361; 96374; 99285; 71045; 80177; 81003; 85025; 93010; 99284; J2405

== ENCOUNTER 2020-09-26 15:55 | Outpatient (REF) | payer MEDICAID, SELFPAY ==
[2020-09-26 21:32] LABS: Calculated LDL 100 mg/dL (<100); Cholesterol 192 mg/dL (<200); HDL Cholesterol 29 mg/dL (40-60); Magnesium 2.2 mg/dL (1.8-2.4); Triglyceride 319 mg/dL (<150); Vitamin B12 587 pg/mL (193-986)
[2020-09-29 12:10] LABS: Levetiracetam 26.4 mcg/mL
== END 2020-09-26 15:56 | disposition home or self-care (01) ==
LOC: NCHCN 15:55
PROVIDERS: PCP Nurse Practitioner Family; Visit Provider Nurse Practitioner Family
DX: G40.909 Epilepsy, unspecified, not intractable, without status epilepticus (principal); Z87.820 Personal history of traumatic brain injury; Z51.81 Encounter for therapeutic drug level monitoring; N18.6 End stage renal disease; N02.8 Recurrent and persistent hematuria with other morphologic changes; I10 Essential (primary) hypertension
CPT/HCPCS: 80061; 80177; 82607; 83735

== ENCOUNTER 2020-11-29 14:21 | Emergency (ER) | payer MEDICAID, SELFPAY ==
[2020-11-29] VITALS (7 sets, daily range): PULSE 60–69; RESP 12–17; TEMP 37; O2SAT 91–93
--- NOTE | 2020-11-29 13:45 | RT.EKG_ITS ---
APPROVED REPORT Exam: Resting ECG Reason for Exam: seizure Patient Location: E HR:68 bpm ECG Measurements Heart Rate 68 AXIS AR 168 P 51 QRSd 92 QRS 27 QT 430 T 37 QTc 457 Conclusion Sinus rhythm...normal P axis, V-rate 60- 99 Probable left atrial enlargement...P >50mS, <-0.10mV V1
--- NOTE | 2020-11-29 14:00 | DI.CT_ITS ---
Exam(s) CT HEAD WO EXAM: CT HEAD WO CLINICAL HISTORY: seizure. TECHNIQUE: Imaging Protocol: Axial computed tomography images with coronal and sagittal reformatted images were created and reviewed COMPARISON: CT CT HEAD WO from 09/18/2019 FINDINGS: There is moderate generalized cerebral atrophy and there is an area of apparent focal encephalomalaci a in the anterior left temporal lobe. Findings appear unchanged from prior CT of September 2019. There is no evidence of acute intracranial hemorrhage, mass effect, or midline shift. The orbital and temp oral bone structures appear intact. Note is made mucoperiosteal thickening involving the left sphenoid sinus and to a lesser degree a few left ethmoid air cells. Mastoid air cells are clear. This finding is new since the previous examin ation and could represent chronic or acute left sphenoid sinusitis. No evidence of acute intracranial hemorrhage, mass effect, or midline shift. IMPRESSION: Cerebral atrophy and left temporal encephalomalacia. Left sphenoid sinusitis, chronic and/or acute. RADIATION DOSE DELIVERED: 995.03mGy.cm Total DLP 995.03mGy.cm Total DLP DATA REPOSITORY: All CT scans at this facility are submitted to the National Radiology Data Registry (NRDR) Dose Index Registry (DIR) with the [employer] ([employer]). RADIATION OPTIMIZATION: All CT scans at this facility use at least one of these dose optimization te chniques: automated exposure control; mA and/or kV adjustment per patient size (includes targeted exa ms where dose is matched to clinical indication); or iterative reconstruction.
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
[2020-11-29 14:28] LABS: Abs Immature Grans 0.05 10^3/uL (0.0-0.06); Absolute Basophil Count 0.03 10^3/uL (0.0-0.2); Absolute Eosinophil Count 0.15 10^3/uL (0.0-0.7); Absolute Lymphocyte Count 0.74 10^3/uL (1.2-3.4); Absolute Monocyte Count 0.51 10^3/uL (0.1-0.8); Basophils % 0.8; Eosinophils % 3.8; HCT 25.8 % (40.0-50.0); HGB 8.9 g/dL (13.5-17.5); Immature Grans % 1.3; Lymphocytes % 18.5; MCH 32.8 pg (27.0-33.0); MCHC 34.5 % (32.0-36.0); MCV 95.2 fL (80-95); MPV 8.5 fL (8.0-11.0); Monocytes % 12.8; Neutrophils % 62.8; Nucleated RBC 0 %; Platelet Count 140 10^3/uL (130-400); RBC 2.71 10^6/uL (4.36-5.78); RDW 12.4 % (11.8-14.1); RDW-SD 42.9 fL
[2020-11-29 14:30] LABS: Absolute Neutrophil Count 2.51 10^3/uL (1.2-6.7)
[2020-11-29 14:47] LABS: ALT 25 U/L (16-63); AST 24 U/L (15-37); Albumin 3.5 g/dL (3.4-5.0); Alkaline Phosphatase 91 U/L (46-116); Anion Gap 7.7 mmol/L (3-11); BUN 14 mg/dL (7-18); Bilirubin, Total 0.4 mg/dL (0.2-1.0); CO2 32.3 mmol/L (21.0-32.0); Calcium 8.5 mg/dL (8.5-10.1); Chloride 98 mmol/L (98-107); Estimated GFR 13.48 (mL/min/1.73m2); Glucose 154 mg/dL (74-106); Magnesium 1.9 mg/dL (1.8-2.4); Potassium 4.3 mmol/L (3.5-5.1); Sodium 138 mmol/L (136-145); Total Protein 7.1 g/dL (6.4-8.2)
[2020-11-29 14:55] LABS: CREATININE 4.5 mg/dL (0.70-1.30)
--- NOTE | 2020-11-29 22:18 | NUR.NOTE ---
Referral faxed to [facility] Ileana Azevedo for a 1wk f/u for seizure.Nursing Note:
== END 2020-11-29 15:58 | disposition home or self-care (01) ==
PROVIDERS: Emergency Provider Emergency Medicine; PCP Nurse Practitioner Family
DX: G40.509 Epileptic seizures related to external causes, not intractable, without status epilepticus (principal); I12.0 Hypertensive chronic kidney disease with stage 5 chronic kidney disease or end stage renal disease; N18.6 End stage renal disease; Z99.2 Dependence on renal dialysis
CPT/HCPCS: 36415; 80053; 93005; 99284; 70450; 83735; 85025; 85610; 85730; 93010

== ENCOUNTER 2021-07-18 11:43 | Outpatient (CLI) | payer MEDICARE, MEDICAID, SELFPAY ==
[2021-07-19 14:59] LABS: COVID-19 RT-PCR UVMMC Result Negative (Negative)
== END 2021-07-18 11:44 | disposition home or self-care (01) ==
PROVIDERS: PCP Nurse Practitioner Family; Visit Provider Nurse Practitioner Family
DX: Z20.822 Contact with and (suspected) exposure to COVID-19 (principal)
CPT/HCPCS: U0003; U0005

== ENCOUNTER → 2021-07-21 09:01 | Outpatient (BNVA) | payer MEDICARE, MEDICAID, SELFPAY | PROVIDERS: PCP Nurse Practitioner Family; Referring Provider Nurse Practitioner Family; Visit Provider Surgery | DX: Z45.2 Encounter for adjustment and management of vascular access device (principal); Z94.0 Kidney transplant status; Z99.2 Dependence on renal dialysis; I10 Essential (primary) hypertension; Z79.01 Long term (current) use of anticoagulants; N18.6 End stage renal disease; Z87.820 Personal history of traumatic brain injury ==

== ENCOUNTER 2021-11-14 19:27 | Outpatient (REF) | payer MEDICARE, MEDICAID, SELFPAY ==
[2021-11-15 14:34] LABS: COVID-19 RT-PCR UVMMC Result Positive (Negative)
== END 2021-11-14 19:28 | disposition home or self-care (01) ==
LOC: NCHCN 19:27
PROVIDERS: PCP Nurse Practitioner Family; Visit Provider Nurse Practitioner Family
DX: Z20.822 Contact with and (suspected) exposure to COVID-19 (principal)
CPT/HCPCS: U0003; U0005

== ENCOUNTER 2021-11-18 09:43 | Outpatient (CLI) | payer MEDICARE, MEDICAID, SELFPAY ==
[2021-11-18 13:05] VITALS: BP 94/63; PULSE 55; RESP 16; TEMP 36.4; O2SAT 99
[2021-11-18 14:10] VITALS: BP 89/56; PULSE 53; RESP 16; TEMP 36.4; O2SAT 99
== END 2021-11-18 09:44 | disposition home or self-care (01) ==
LOC: INF 09:44
PROVIDERS: PCP Nurse Practitioner Family; Visit Provider Family Medicine
DX: U07.1 COVID-19 (principal)
CPT/HCPCS: 96374; Q0222

== ENCOUNTER 2022-04-30 11:26 | Outpatient (REF) | payer MEDICARE, MEDICAID, SELFPAY ==
[2022-05-02 10:54] LABS: COVID-19 RT-PCR UVMMC Result Negative (Negative)
== END 2022-04-30 11:27 | disposition home or self-care (01) ==
LOC: NCHCN 11:26
PROVIDERS: PCP Nurse Practitioner Family; Visit Provider Nurse Practitioner Family
DX: Z20.822 Contact with and (suspected) exposure to COVID-19 (principal); Z01.812 Encounter for preprocedural laboratory examination
CPT/HCPCS: U0003

== ENCOUNTER 2022-05-05 02:10 | Outpatient (RCR) | payer MEDICARE, MEDICAID, SELFPAY | END 2022-05-11 23:59 | disposition home or self-care (01) | LOC: INF 02:10 | PROVIDERS: PCP Nurse Practitioner Family; Visit Provider Nurse Practitioner Acute Care | DX: N18.6 End stage renal disease (principal); Z29.8 Encounter for other specified prophylactic measures | CPT/HCPCS: 96372; Q0221 ==

== ENCOUNTER → 2022-07-24 10:52 | Outpatient (BNVA) | payer MEDICARE, MEDICAID, SELFPAY | PROVIDERS: PCP Nurse Practitioner Family; Referring Provider Nurse Practitioner Family; Visit Provider Surgery | DX: L98.9 Disorder of the skin and subcutaneous tissue, unspecified (principal) ==

== ENCOUNTER → 2022-08-24 11:02 | Outpatient (BNVA) | payer MEDICARE, MEDICAID, SELFPAY | PROVIDERS: PCP Nurse Practitioner Family; Referring Provider Nurse Practitioner Family; Visit Provider Surgery | DX: L57.0 Actinic keratosis (principal) | CPT/HCPCS: 11402; 99212 ==

== ENCOUNTER 2022-08-24 11:52 | Outpatient (REF) | payer MEDICARE, MEDICAID, SELFPAY ==
--- NOTE | 2022-08-24 11:35 | SKI_PTH ---
PATIENT: Adama Ram LOC: [facility] U#:[id number] AGE/SX: 62/M ROOM: RE08/24/[address]: Rachelle Grey : 1960 BED: DIS: 08/24/2022 SPEC #: [id number] RECD: 08/24/22 12:38 STATUS: RONALDO REHina #: [id number] TREE: 08/24/22 11:[address]: Rachelle Grey DEPT: Surgical Specimen RECD BY: Christal Webb ENTERED: 08/24/22 12:38 SP TYPE: MICHELLE SCHROEDER DR: Ileana Azevedo Tissues: 1 - SKIN BIOPSY(SHAVE/PUNCH) Procedures: SKIN LEVEL 4 Comments: [id number]
== END 2022-08-24 11:53 | disposition home or self-care (01) ==
LOC: LBN 11:52
PROVIDERS: PCP Nurse Practitioner Family; Visit Provider Surgery
DX: L57.0 Actinic keratosis (principal)
CPT/HCPCS: 88305

== ENCOUNTER 2022-10-07 02:00 | Outpatient (CLI) | payer MEDICARE, MEDICAID, SELFPAY ==
[2022-10-07 10:21] LABS: Abs Immature Grans 0.02 10^3/uL (0.0-0.06); Absolute Basophil Count 0.05 10^3/uL (0.0-0.2); Absolute Eosinophil Count 0.34 10^3/uL (0.0-0.7); Absolute Lymphocyte Count 1.61 10^3/uL (1.2-3.4); Absolute Monocyte Count 0.74 10^3/uL (0.1-0.8); Absolute Neutrophil Count 4.99 10^3/uL (1.2-6.7); Basophils % 0.6; Eosinophils % 4.4; HCT 37.8 % (40.0-50.0); Immature Grans % 0.3; Lymphocytes % 20.8; MCH 31.8 pg (27.0-33.0); MCHC 31.7 % (32.0-36.0); MCV 100 fL (80-95); MPV 8.6 fL (8.0-11.0); Monocytes % 9.5; Neutrophils % 64.4; Platelet Count 232 10^3/uL (130-400); RBC 3.77 10^6/uL (4.36-5.78); RDW 13.6 % (11.8-14.1); RDW-SD 49.9 fL; WBC 7.75 10^3/uL (4.4-10.8)
[2022-10-07 10:45] LABS: Hemoglobin A1C 5.7 % (<5.7)
[2022-10-07 11:29] LABS: ALT 22 U/L (16-63); AST 13 U/L (15-37); Albumin 3.6 g/dL (3.4-5.0); Alkaline Phosphatase 129 U/L (46-116); Anion Gap 8.9 mmol/L (3-11); BUN 42 mg/dL (7-18); Bilirubin, Total 0.4 mg/dL (0.2-1.0); CO2 33.1 mmol/L (21.0-32.0); Calcium 9.1 mg/dL (8.5-10.1); Calculated LDL 99 mg/dL (<100); Chloride 99 mmol/L (98-107); Cholesterol 171 mg/dL (<200); Folate 16.7 ng/mL (8.6-20.0); Glucose 82 mg/dL (74-106); HDL Cholesterol 30 mg/dL (40-60); Magnesium 2.1 mg/dL (1.8-2.4); Potassium 5.4 mmol/L (3.5-5.1); Sodium 141 mmol/L (136-145); TSH (W/Ref FT4) 2.26 uIU/mL (0.36-3.74); Total Protein 7.8 g/dL (6.4-8.2); Triglyceride 212 mg/dL (<150); Vitamin B12 755 pg/mL (193-986)
[2022-10-07 11:33] LABS: CREATININE 8.8 mg/dL (0.70-1.30)
[2022-10-07 11:42] LABS: Uric Acid 3.4 mg/dL (3.5-7.2)
[2022-10-08 16:17] LABS: Levetiracetam 36.4 mcg/mL
== END 2022-10-07 02:01 | disposition home or self-care (01) ==
LOC: LBO 02:00
PROVIDERS: PCP Nurse Practitioner Family; Visit Provider Nurse Practitioner Family
DX: E03.9 Hypothyroidism, unspecified (principal); R73.01 Impaired fasting glucose; N18.6 End stage renal disease; D63.1 Anemia in chronic kidney disease; D50.9 Iron deficiency anemia, unspecified; G40.909 Epilepsy, unspecified, not intractable, without status epilepticus; I10 Essential (primary) hypertension
CPT/HCPCS: 36415; 80053; 80061; 80177; 82607; 82746; 83036; 83735; 84443; 84550; 85025

== ENCOUNTER 2022-10-19 11:29 | Emergency (ER) | payer MEDICARE, MEDICAID, SELFPAY ==
--- NOTE | 2022-10-19 11:30 | RT.EKG_ITS ---
APPROVED REPORT Exam: Resting ECG Reason for Exam: dizziness vomiting Patient Location: E HR:67 bpm ECG Measurements Heart Rate 67 AXIS RI 151 P 65 QRSd 78 QRS 63 QT 392 T 61 QTc 415 Conclusion Sinus rhythm...normal P axis, V-rate 60- 99 Low voltage, extremity and precordial leads...extremity<0.5mV, precordial<1.0mV Physician: no stemi
[2022-10-19 11:35] VITALS: BP 100/76; PULSE 79; RESP 16; TEMP 36.4; O2SAT 97
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
--- NOTE | 2022-10-19 12:30 | DI.CT_ITS ---
Exam(s) CT HEAD WO EXAM: CT HEAD WO CLINICAL HISTORY: dizziness, vomiting. TECHNIQUE: Imaging Protocol: Axial computed tomography images with coronal and sagittal reformatted images were created and reviewed COMPARISON: CT CT HEAD WO from 11/29/2020 FINDINGS: Ventricles and Extra axial spaces: Normal in size and morphology for the patient's age. Hemorrhage: None. Cerebral parenchyma: There are areas of decreased attenuation in the white matter most consistent wit h small vessel ischemic disease. No evidence of an acute territorial infarct. Midline shift: None. Brainstem/Cerebellum: Normal. Calvarium: Normal. Visualized Paranasal sinuses/Mastoids: There is complete opacification of the left sphenoid sinus. T he remaining visualized paranasal sinuses and mastoid air cells are clear. Soft Tissues: Unremarkable. IMPRESSION: 1. No acute intracranial process. 2. Findings were discussed with Dr. Paredes at 1:55 p.m. on 10/19/2022. RADIATION DOSE DELIVERED: 863.43mGy.cm Total DLP DATA REPOSITORY: All CT scans at this facility are submitted to the National Radiology Data Registry (NRDR) Dose Index Registry (DIR) with the [employer] ([employer]). RADIATION OPTIMIZATION: All CT scans at this facility use at least one of these dose optimization te chniques: automated exposure control; mA and/or kV adjustment per patient size (includes targeted exa ms where dose is matched to clinical indication); or iterative reconstruction.
--- NOTE | 2022-10-19 12:30 | DI.RAD_ITS ---
Exam(s) XR CHEST 2V PA LATERAL EXAM: XR CHEST 2V PA LATERAL CLINICAL HISTORY: dizziness TECHNIQUE: 2D digital imaging was performed of the chest. Two images were obtained. PA and lateral views were obtained. COMPARISON: CR XR CHEST 2V PA LATERAL from 09/18/2019 CR XR PORTABLE CHEST AP from 12/18/2019 FINDINGS: MEDIASTINUM: Normal. HEART: Normal. PULMONARY VASCULATURE: Normal. LUNGS: Lungs are hyperinflated with flattened diaphragms consistent with underlying COPD. PLEURAL SPACE: No pleural effusion or pneumothorax. BONE:Within normal limits for the patient's age. OTHER FINDINGS:There is a left subclavian catheter. The tip of the catheter is in good position at t he junction of the superior vena cava and right atrium. IMPRESSION: No acute pulmonary findings. DATA REPOSITORY: RADIATION DOSE DELIVERED:
[2022-10-19 12:53] VITALS: RESP 18
[2022-10-19 12:53] LABS: Abs Immature Grans 0.02 10^3/uL (0.0-0.06); Absolute Basophil Count 0.06 10^3/uL (0.0-0.2); Absolute Eosinophil Count 0.15 10^3/uL (0.0-0.7); Absolute Neutrophil Count 5.88 10^3/uL (1.2-6.7); Basophils % 0.7; Eosinophils % 1.9; HCT 36.1 % (40.0-50.0); HGB 11.4 g/dL (13.5-17.5); Immature Grans % 0.2; Lymphocytes % 16.2; MCH 31.4 pg (27.0-33.0); MCHC 31.6 % (32.0-36.0); MCV 99 fL (80-95); MPV 8.8 fL (8.0-11.0); Monocytes % 7.5; Neutrophils % 73.5; Platelet Count 186 10^3/uL (130-400); RBC 3.63 10^6/uL (4.36-5.78); RDW 13.8 % (11.8-14.1); RDW-SD 50.1 fL; WBC 8.01 10^3/uL (4.4-10.8)
[2022-10-19 13:40] LABS: ALT 16 U/L (16-63); AST 11 U/L (15-37); Albumin 3.5 g/dL (3.4-5.0); Alkaline Phosphatase 131 U/L (46-116); Anion Gap 8.8 mmol/L (3-11); BUN 44 mg/dL (7-18); Bilirubin, Total 0.5 mg/dL (0.2-1.0); CO2 33.2 mmol/L (21.0-32.0); Calcium 9.3 mg/dL (8.5-10.1); Chloride 100 mmol/L (98-107); Estimated GFR 5.67 (mL/min/1.73m2); Glucose 113 mg/dL (74-106); Magnesium 2.2 mg/dL (1.8-2.4); Sodium 142 mmol/L (136-145); TSH 1.52 uIU/mL (0.36-3.74); Total Protein 7.2 g/dL (6.4-8.2)
[2022-10-19 13:42] LABS: CREATININE 9.6 mg/dL (0.70-1.30); Potassium 6.1 mmol/L (3.5-5.1); Troponin I 80 ng/L (<or=60)
[2022-10-19 13:56] VITALS: BP 129/59; BP 136/99; BP 90/60; PULSE 60; PULSE 66; PULSE 78
[2022-10-19 15:46] VITALS: BP 105/40; PULSE 60; RESP 18; O2SAT 97
--- NOTE | 2022-10-19 18:25 | NUR.NOTE ---
chart accessed to give report to RN at [facility]
== END 2022-10-19 15:54 ==
PROVIDERS: Emergency Provider Physician Assistant; PCP Nurse Practitioner Family
DX: I95.9 Hypotension, unspecified (principal); N18.6 End stage renal disease; E87.5 Hyperkalemia
CPT/HCPCS: 36415; 80053; 93005; 99284; 70450; 71046; 81003; 83735; 84443; 84484; 85025; 93010

== ENCOUNTER → 2023-07-15 13:01 | Outpatient (BNVA) | payer MEDICARE, MEDICAID, SELFPAY | PROVIDERS: PCP Nurse Practitioner Family; Referring Provider Nurse Practitioner Family; Visit Provider Psychiatry & Neurology Neurology | DX: R42 Dizziness and giddiness (principal); I95.3 Hypotension of hemodialysis; G62.9 Polyneuropathy, unspecified; G40.909 Epilepsy, unspecified, not intractable, without status epilepticus; R41.3 Other amnesia; R41.89 Other symptoms and signs involving cognitive functions and awareness; Z87.820 Personal history of traumatic brain injury | CPT/HCPCS: 99205; G2212 ==

== ENCOUNTER 2023-09-21 18:08 | Outpatient (REF) | payer MEDICARE, MEDICAID, SELFPAY ==
[2023-09-21 15:12] LABS: Hemoglobin A1C 5.5 % (<5.7)
[2023-09-21 15:24] LABS: TSH (W/Ref FT4) 0.87 uIU/mL (0.36-3.74); Vitamin B12 1042 pg/mL (193-986)
[2023-09-23 11:28] LABS: Levetiracetam 37.3 mcg/mL
== END 2023-09-21 18:09 | disposition home or self-care (01) ==
LOC: NCHCN 18:08
PROVIDERS: PCP Nurse Practitioner Family; Visit Provider Nurse Practitioner Family
DX: E03.9 Hypothyroidism, unspecified (principal); R73.01 Impaired fasting glucose; K30 Functional dyspepsia; G40.909 Epilepsy, unspecified, not intractable, without status epilepticus; Z79.899 Other long term (current) drug therapy; Z51.81 Encounter for therapeutic drug level monitoring
CPT/HCPCS: 80177; 82607; 83036; 83735; 84443

== ENCOUNTER 2023-11-02 05:01 | Outpatient (CLI) | payer MEDICARE, MEDICAID, SELFPAY ==
[2023-11-02 12:51] LABS: Hemoglobin A1C 5.5 % (<5.7)
[2023-11-02 13:24] LABS: Magnesium 2.2 mg/dL (1.8-2.4); Vitamin B12 717 pg/mL (193-986)
[2023-11-04 13:05] LABS: Levetiracetam 36.7 mcg/mL
== END 2023-11-02 05:02 | disposition home or self-care (01) ==
LOC: LBO 05:01
PROVIDERS: PCP Nurse Practitioner Family; Visit Provider Nurse Practitioner Family
DX: R73.01 Impaired fasting glucose (principal)
CPT/HCPCS: 36415; 80177; 82607; 83036; 83735

== ENCOUNTER → 2023-11-16 10:44 | Outpatient (BNVA) | payer MEDICARE, MEDICAID, SELFPAY | PROVIDERS: PCP Nurse Practitioner Family; Referring Provider Nurse Practitioner Family; Visit Provider Psychiatry & Neurology Neurology | DX: R42 Dizziness and giddiness (principal); I95.3 Hypotension of hemodialysis; G62.9 Polyneuropathy, unspecified; G40.909 Epilepsy, unspecified, not intractable, without status epilepticus; R41.3 Other amnesia; R41.89 Other symptoms and signs involving cognitive functions and awareness; Z87.820 Personal history of traumatic brain injury | CPT/HCPCS: 99214 ==

== ENCOUNTER 2024-04-01 08:01 | Emergency (ER) | payer MEDICARE, MEDICAID, SELFPAY ==
[2024-04-01] VITALS (19 sets, daily range): BP systolic 86–107; BP diastolic 63–75; PULSE 53–65; RESP 16; TEMP 36.4–36.5; O2SAT 92–97
--- NOTE | 2024-04-01 08:00 | RT.EKG_ITS ---
APPROVED REPORT Exam: Resting ECG Reason for Exam: fall Patient Location: E HR:62 bpm ECG Measurements Heart Rate 62 AXIS VT 186 P 53 QRSd 91 QRS 51 QT 403 T 57 QTc 409 Conclusion Pacemaker spikes or artifacts...timing non-diagnostic Sinus rhythm...normal P axis, V-rate 60- 99 Right atrial enlargement...P>0.25mV 2 lds or<-0.24mV aVR/aVL Narrow complex sinus rhythm at a rate of 62 with significant artifact. Intervals within normal limit s. No ST segment abnormalities. T wave inversion in V2. No acute injury pattern. Appears similar to prior dated last year.
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
--- NOTE | 2024-04-01 08:15 | DI.RAD_ITS ---
Exam(s) XR CHEST 2V PA LATERAL EXAM: XR CHEST 2V PA LATERAL CLINICAL HISTORY: History of fall. TECHNIQUE: 2D digital imaging was performed. COMPARISON: CR XR CHEST 2V PA LATERAL from 10/19/2022 FINDINGS: 2 views: Distal tip of the double-lumen catheter is in the upper right atrium, unchanged. Heart size is normal. The mediastinum is not widened. Bilateral hyperinflation. There is subsegmental platelike atelectasis or thin linear scarring in the right lung base. No confluent infiltrates nor pleural effusions. No pulmonary edema. No pneumotho rax. No obvious fractures evident. IMPRESSION: Platelike atelectasis or scarring in the right lung base DATA REPOSITORY: RADIATION DOSE DELIVERED:
--- NOTE | 2024-04-01 08:45 | DI.CT_ITS ---
Exam(s) CT HEAD WO EXAM: CT HEAD WO CLINICAL HISTORY: History of fall. TECHNIQUE: Imaging Protocol: Axial computed tomography images with coronal and sagittal reformatted images were created and reviewed COMPARISON: CT CT HEAD WO from 10/19/2022 FINDINGS: There are no skull fractures. There is almost complete opacification of the left sphenoid sinus. Par tially visualized maxillary sinuses are clear. Frontal sinuses are clear as are mastoid air cells. There is no evidence of intracranial hemorrhage, mass effect, or shift of midline structures. There are no significant extra-axial fluid collections. There is evidence of a previous right occipital lob e infarct, unchanged. There is both supra and infra tentorial atrophy again noted. Periventricular hy podensity consistent with chronic small vessel disease. Slightly exaggerated CSF space over the left convexity may represent small hygroma although the patient is somewhat tilted towards the right side IMPRESSION: Abnormal findings as above but with minimal change from 10/19/2022. No obvious acute intracranial fin dings. Almost complete opacification of the left sphenoid sinus noted. RADIATION DOSE DELIVERED: 977.59mGy.cm Total DLP DATA REPOSITORY: All CT scans at this facility are submitted to the National Radiology Data Registry (NRDR) Dose Index Registry (DIR) with the [employer] ([employer]). RADIATION OPTIMIZATION: All CT scans at this facility use at least one of these dose optimization te chniques: automated exposure control; mA and/or kV adjustment per patient size (includes targeted exa ms where dose is matched to clinical indication); or iterative reconstruction.
--- NOTE | 2024-04-01 10:25 | DI.VRAD_ITS ---
PROCEDURE INFORMATION: Exam: XR Chest Exam date and time: 04/01/2024 8:39 AM Age: 63 years old Clinical indication: Injury or trauma; Fall; Blunt trauma (contusions or hematomas) TECHNIQUE: Imaging protocol: Radiologic exam of the chest. Views: 2 views. COMPARISON: CR XR CHEST 2V PA LATERAL 10/19/2022 1:41 PM FINDINGS: Tubes, catheters and devices: Left central venous catheter. Lungs: No focal consolidation seen. Pleural spaces: No large pleural effusion seen. Heart/Mediastinum: No cardiomegaly. Bones/joints: No acute abnormality. IMPRESSION: No acute findings to explain reported symptoms. Dictated and Authenticated by: Peggy Block MD. Ordering:KERRY Steel MD
--- NOTE | 2024-04-01 10:29 | DI.VRAD_ITS ---
PROCEDURE INFORMATION: Exam: CT Head Without Contrast Exam date and time: 04/01/2024 8:32 AM Age: 63 years old Clinical indication: Injury or trauma; Fall; Concussion/head injury TECHNIQUE: Imaging protocol: Computed tomography of the head without contrast. Radiation optimization: All CT scans at this facility use at least one of these dose optimization techniques: automated exposure control; mA and/or kV adjustment per patient size (includes targeted exams where dose is matched to clinical indication); or iterative reconstruction. COMPARISON: CT HEAD WO 10/19/2022 1:34 PM FINDINGS: Limitations: Mild motion artifact. Multiplanar reconstructions are not submitted. Brain: No intracranial hemorrhage appreciated. No significant focal mass effect or significant midline shift. Generalized parenchymal volume loss. Chronic ischemic changes are noted. Suspect trace left hygroma. Cerebral ventricles: No disproportionate ventriculomegaly. Paranasal sinuses: Near-complete opacification of the left sphenoid sinus. Mastoid air cells: No mastoid effusion. Bones: Chronic facial bone fractures. Soft tissues: No acute findings. Vasculature: Arterial calcifications. IMPRESSION: 1. No intracranial sequelae of trauma appreciated. 2. Nonacute findings as outlined above. 3. Sinus disease as above. Dictated and Authenticated by: Peggy Block MD. Ordering:KERRY Steel MD
== END 2024-04-01 11:51 | disposition home or self-care (01) ==
LOC: ER 09:03
PROVIDERS: Emergency Provider Emergency Medicine; PCP Nurse Practitioner Family
DX: S00.31XA Abrasion of nose, initial encounter (principal); W10.8XXA Fall (on) (from) other stairs and steps, initial encounter
CPT/HCPCS: 93005; 99285; 70450; 71046; 93010; 99283

== ENCOUNTER 2024-04-22 09:55 | Emergency (ER) | payer MEDICARE, MEDICAID, SELFPAY ==
[2024-04-22 09:57] VITALS: BP 70/42; PULSE 60; RESP 16; TEMP 36.7; O2SAT 95
[2024-04-22 10:01] VITALS: BP 61/39; PULSE 56
[2024-04-22 10:07] VITALS: BP 78/42; PULSE 56
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
[2024-04-22 10:16] VITALS: BP 72/27; PULSE 55; O2SAT 93
[2024-04-22 10:31] VITALS: BP 82/33; PULSE 53; O2SAT 94
[2024-04-22 10:46] VITALS: BP 76/50; PULSE 53; O2SAT 97
--- OUTSIDE RECORDS SUMMARY | 2024-04-22 10:48 | XMS_ITS ---
Author Name Crystal Mcdermott Address [address] [place] [address] Phone [phone] Organization [facility] e, NA DOCUMENT DISCLAIMER Multiple document versions may exist, please be sure you review the latest version. The information in the [facility] Progress Note Document represents a providers documented clinical note containing certain health and medical information. It may not contain the complete medical history for the patient and should be independently verified. The represented time in the document is Eastern Time PROVIDER ROUNDING NOTE COMP HD PROVIDER?ROUNDING?NOTE?COMP?HD Clinic:?[address] [place] [address] Visit?date:?05/28/2022?00:00?Modality/setting:?IHD CHRISTY?ARNOL?-?Chart?#:?[id number] Method?of?Interaction:?Face?to?face Date?of?Interaction:?10/29/2023 ?-?Patient?is?stable ?-?High?weight?gain?noted ?-?Medications?and?labs?reviewed. Patient?issues?include: 09/20/2023?-?Recently?had?a?seizure. Prior?Treatment:?10/27/2023? Dialyzer:?180NRe?Optiflux? Dialysate:?2.0?K,?2.5 Ca,?1.0?Mg,?100?Dextrose?(G2251)? Prescribed?Time:?3:45?Avg?BFR:?420?Wt?Gain (kg):?2.40? Actual?Time:?03:50?Avg?DFR:?800?&#16 0;EDW?(kg):?69.50? Volume?Management?Comments: 06/02/2023?-?Euvolemic.??At/below?target?weight.??Decreased EDW?to?70.??? 07/28/2023?-?Euvolemic.??EDW?recently?decreased?based?on&#16 0;post-rx?weights.??No change.?09/01/2023?-?Euvolemic.??Achieving?target weight.??No?change.??? 09/20/2023?-?High?gains?last?2?treatments;?not?usually?the?case.??Euvolemic.? Achieving?target?weight.?10/29/2023?-?Continues?to?have?high?gains.??Not achieving?target?weight.??EDW?changed?to?70;?will?try to?gently?challenge. Adequacy ?spKt/V?eKdrt/V?&#160 ; ???OLC?(Del)?spKtv?URR?%?1.61?10/11/23?? ?1.39?10/11/23?? ?1.73?0 10/27/23?? ?74?10/11/23? ?1.91?09/15/23?? ?1.71?09/15/23?? ?1.65?0 10/25/23?? ?79?09/15/23? ?1.83?08/16/23?? ?1.59?08/16/23?? ?1.85?0 10/22/23?? ?79?08/16/23? ?Potassium,?Serum?mEq/L?Bicarbonate?mEq/L??&# 160;?Creatinine?mg/dL?5.9?10/25/23? 24?10/11/23?11 .40?08/26/20?5.7?10/20/23? 22?09/15/23?&# 160;?-?6.1?10/11/23? 24?08/16/23?&# 160;?-?-?Adequacy?parameters?reviewed Adequacy ?-?Adequacy?target?met ?Sitting?BP?Pre?Sitting BP?Post?Systolic/Diastolic?Systolic/Diastolic?112?/?76??10/27/23?123?/?65??10/27/23?127?/?76??10/25/23?150?/?70??10/25/23?133?/?61??10/22/23?156?/?86??10/22/23?? Blood?Pressure ?-?Elevated?blood?pressure-target?weight?adjusted Fluid?Status ?-?Fluid?status?acceptable Prescription?Compliance ?-?Prescription?compliance?acceptable 07/28/2023?-?On?Lokelma.?10/29/2023?-?BP?not&#1 60;always?well?controlled.??Will try?to?gently?challenge?weight,?revisit?fluid?restriction,?and?see?if?that?will bring?the?BP?into?range. Anemia ?HGB?g/dL? Transferrin?Sat.?(Calc)?%?Ferritin?ng/mL&#160 ;?11.9?10/25/23?25?10/11/23?1132 ?10/11/23?? ?12.0?10/20/23?26?09/15/23?1341 ?09/15/23?? ?12.0?10/11/23?31?08/16/23?1123 ?08/16/23?? CRISTY?Administrations ??0?mcg?Mircera?07/25/22 ??0?mcg?Mircera?07/11/22 ??0?mcg?Mircera?06/27/22 IV?Iron?Administrations ??100?mg?Venofer?07/02/23 ??100?mg?Venofer?06/30/23 ??100?mg?Venofer?06/28/23 ?-?Anemia?reviewed ?-?Anemia?targets?met Bone?and?Mineral?Metabolism ??Calcium,?Total?mg/dL?? Calcium,?Corrected?mg/dL ?&#1 60;??Phosphorous?mg/dL??? PTH-Intact,?Plasma?pg/mL ??9.1?10/25/23? 9.0?10/11/23?4.0&#16 0;?10/25/23?439?10/11/23?8.6?10/20/23? 9.0?03/06/24?3.8&#16 0;?10/20/23?1035?09/20/23?9.2?10/11/23? 8.8?08/16/23?3.1&#16 0;?10/11/23?535?09/15/23?Vitamin?D?25?Hydroxy?ng/mL? ?Vitamin?D?Analogue? Administrations?Calcimimetics?46.0?09/15/23?0.75?mcg?Vitamin?D??10/27/23??& #160;?-?56.5?06/14/23?0.75?mcg?Vitamin?D??10/25/23??& #160;?-?64.2?04/12/23?0.75?mcg?Vitamin?D??10/22/23??& #160;?-? PTH ?-?PTH?within?target ?-?Bone?and?mineral?metabolism?parameters?reviewed ?-?Calcium?controlled ?-?Phosphorus?controlled 07/28/2023?-?PTH?still?above?target.??Will?increase?calcitriol?to?0.5mcg?qrx.??? 09/01/2023?-?PTH?stable?but?still?above?target.??Will&# 160;increase?calcitriol?to 0.75mcg?qrx,?keeping?a?close?eye?on?calcium. Nutrition ?Albumin?g/dL? eNPCR?g/kg/day?4.2?10/11/23?? ?0.87?10/11/23?? ?4.1?09/15/23?? ?0.83?09/15/23?? ?4.5?08/16/23?? ?1.01?08/16/23?? ?-?Nutrition?reviewed Home?Medications ?acetaminophen?(acetaminophen) 500?mg,?oral,?2?tablet?three?times?a?day ??allopurinol?(allopurinol) 100?mg,?oral,?1?tablet?once?a?day ??Mt?Low?Dose?Aspirin?(aspirin) 81?mg,?oral,?1?tablet?once?a?day ??benzonatate?(benzonatate) 100?mg,?oral,?1??as?directed ??levetiracetam?(levetiracetam) 250?mg,?oral,?1?tablet?three?times?a?week [POST?Dialysis] ??levetiracetam?(levetiracetam) 500?mg,?oral,?1?tablet?twice?a?day ??levothyroxine?(levothyroxine) 100?mcg,?oral,?1?tablet?once?a?day ??Mucinex?(guaifenesin) 600?mg,?oral,?1?tablet?every?twelve?hours ??pantoprazole?(pantoprazole) 20?mg,?oral,?1?tablet?once?a?day ??Tania-Madiha?(b?complex-vitamin?c-folic?acid) 0.8?mg,?oral,?1?tablet?once?a?day ??tacrolimus?(tacrolimus) 1?mg,?oral,?1?capsule?twice?a?day ??Veltassa?(patiromer?calcium?sorbitex) 25.2?gram,?oral,?1?packet?once?a?day [take?4?times?a?wk?on?non?dialysis?days,?as?needed?to?reach?desired?K+target.] Last?Hospitalization ?Admission?Date:?09/10/2023 ?Discharge?Date:?09/14/2023 ?Discharge?Diagnosis: ?-?G40.89?-?Other?seizures Vascular?Access?-?Active/Maturing ?Type?Position/Location?Status?Access?ID?CVCatheter-Tunneled?Chest?Active?(In?Use)?[id number]?-?-?&# 160;?-? -?-?-?&# 160;?-? -? Access?Flows ??1391mL?per?min?10/22/21 ??1256mL?per?min?08/29/21 ??1559mL?per?min?08/27/21 ?-?Vascular?access?reviewed ?-?Current?access?is?functioning?well. 05/28/2022?-?PERMANENT?TDC.?? Exam ?-?Vital?signs?reviewed Pulmonary ?-?LUNGS?-?clear Cardiovascular ?-?CV?-?Blood?pressure?noted ?-?CV?-?RRR Edema ?-?EXT?-?No?edema Transplant?Status Topic Exploring?Alternative?Treatment?Options: Kidney?Transplant ?Person?Taught: ?-?Patient ?Additional?Education?Required:?No ?Date?Given:?07/02/2022 Interest?and?Eligibility?(If?changes?are?made,?Please?notify?SW?via?alert?below) ?Date?of?discussion?from?transplant?assessment:?09/08/2023 ?Patient?already?on?transplant?list??No Tobacco?Cessation ??Tobacco?use:?Never?used Crystal?Baldemar,? END OF DOCUMENT
--- OUTSIDE RECORDS SUMMARY | 2024-04-22 10:48 | XMS_ITS ---
Author Name Heath Soloriocy Address [address] [place] [id number] Phone [phone] Organization [facility], NA DOCUMENT DISCLAIMER Multiple document versions may exist, please be sure you review the latest version. The information in the [facility] Progress Note Document represents a providers documented clinical note containing certain health and medical information. It may not contain the complete medical history for the patient and should be independently verified. The represented time in the document is Eastern Time PROVIDER ROUNDING NOTE BASIC Patient:?CHRISTY?ARNOL,?1960,?63y,?M Dialysis?Location:?[facility] Attending?Hospital Nursing Assistant:?Crystal?Baldemar Service?Date:?01/24/2024 Service?Provider:?Luna?Lyndsey,?ROLLING MACHINE OPERATOR I?met?face?to?face?with?the?patient?today. OVERVIEW The?patient?presented?with?ESRD?on?dialysis Primary?cause?of?renal?failure:?Unspecified?complication?of?kidney?transplant Comments:?01/24/24?-?Labs,?vital?signs?and?metabolic?paramete rs?reviewed.?Stable?treatment?with?no?complaints?or?acute issues.? 01/10/24?-?Stable?dialysis?treatment?with?no?acute?issues or?complaints. 12/27/23?-?Stable?treatment. 11/10/23?-?Stable?treatment?with?no?acute?issues.?States? he?is?feeling?well?on?non?dialysis?days. 10/11/23?-?Stable?treatment.?No?acute?issues. 09/15/23?-?Recent?admission?for?confusion?and???seizure?a ctivity.?Pts?mental?status?back?at?baseline?today.?No?f urther?seizure?activity?reported.?Stable?dialysis.?No?complaints.? 08/25/23?-?Stable?treatment. 08/20/23?-?Stable?dialysis?treatment?with?no?acute?issues. 07/16/23?-?Stable?treatment. 06/16/23?-?It?was?reported?that?pts?nursing?home?current ly?has?bed?bugs.?Precautions?taken?at?dialysis.? 05/21/23?-?Stable?treatment?today. 05/17/23?-?Stable?treatment.?No?complaints.?Cath?running?well. 04/26/23?-?Stable?treatment 04/21/23?-?Stable?dialysis?treatment?with?no?complaints?or acute?issues.? 03/02/23?-?Stable?treatment. 02/04/23 Stable?HD.??UFG?appropriately?set. 01/30/2023 Stable?treatment.?No?complaints 01/19/23?-?Tunneled?catheter?was?exchanged,?running?better?no w?with?much?fewer?alarms.?Stable?treatment.? 12/22/22?-?Stable?treatment.?No?complaints.?Multiple?arterial&#160 ;alarms?at?beginning?of?treatment.?Catheter?required?several&#160 ;flushes?and?patient?was?repositioned.?Catheter?then?began?r unning?with?fewer?alarms?at?a?BPS?of?300,?green?amp?light.? 12/10/22?-?Stable?treatment.?Feeling?well. 11/17/22?-?Stable?treatment?with?no?complaints.? 10/13/22?-?scheduled?for?catheter?exchange?tomorrow?due?to poor?flows.? ?-?Carvedilol?stopped?for?reports?of?hypotension?and ?falls?at?nursing?home.?Pt?denies?any?recent?falls. 08/25/22-?Tolerating?HD?well?and?denies?any?new?complaints. 01/17/23-?Tolerating?HD?well?and?denies?any?new?complaints.&#1 60;Metabolic?and?volume?parameters?reviewed.?Education?provided?o n?low?phos?foods, reviewed?monthly?labs?and?UFG. No?changes?made?at?this?time.?Will?consider?adding?loke lma?if?phos?trend?changes?direction. 07/16/22-?Tolerating?HD?well.?Denies?any?concerns. 06/30/22?-?Stable?treatment. 06/18/22?-?RD?will?discuss?elevated?K?with?pts?nursing&# 160;home.?Stable?treatment?today. 06/11/22?-?Stable?treatment?with?no?acute?issues. 05/25/22?-?Stable?treatment,?no?complaints.??States?he? feels?good?on?his?non?dialysis?days. 05/18?Doing?well/?walking?outside/doing?better?with?diet 08/06/22 Blood?flow?on?on?catheter?350?,?has?a?yellow?light ?180?dialyzer.?Will?make?minor?adjustments?to?his?dialy sate?temp,?he?is?willing?to?stay?extra?time?to?achieve?adequacy.? 08/11/22 Increased?hid?time?to?4?hrs?and?he?has?a?green light?today.? Blood?pressure?stable.? Medications?and?labs?reviewed. LAST?HOSPITALIZATION Discharge?Diagnosis:?G40.89?Other?seizures Admission?Date?09/10/23 Discharge?Date?09/14/23 DIALYSIS?PRESCRIPTION ??IHD?3x?Week?Start?date:?12/27/23 ??Dialyzer:?180NRe?Optiflux ??BFR:?450 ??DFR:?Manual?800 ??Potassium:?2.0 ??Sodium:?137 ??EDW:?71 ??Duration:?3:45 ??Calcium:?2.5 ??Bicarb:?35 ??Rx?updated?on:?12/25/2023 TREATMENT?ASSESSMENT BP?Stand?Pre ??01/21/2024:?125/80 ??01/19/2024:?137/55 ??01/17/2024:?108/59 BP?Sit?Pre ??01/21/2024:?107/58 ??01/19/2024:?129/53 ??01/17/2024:?111/54 BP?Stand?Post ??01/21/2024:?153/60 ??01/19/2024:?123/63 ??01/17/2024:?117/65 BP?Sit?Post ??01/21/2024:?151/80 ??01/19/2024:?120/63 ??01/17/2024:?132/71 Tx?Duration ??01/21/2024:?3:37 ??01/19/2024:?3:49 ??01/17/2024:?3:48 Missed?Treatments 0?-?last?30?days 0?-?last?60?days FLUID?ASSESSMENT EDW?(kg) ??01/21/2024:?71.0 ??01/19/2024:?71.0 ??01/17/2024:?71.0 Weight?Pre?(kg) ??01/21/2024:?74.5 ??01/19/2024:?71.8 ??01/17/2024:?72.2 Weight?Post?(kg) ??01/21/2024:?70.8 ??01/19/2024:?70.9 ??01/17/2024:?71.5 PWV?(kg) ??01/21/2024:?-0.2 ??01/19/2024:?-0.1 ??01/17/2024:?0.5 UF?Rate?(mL/kg/hr) ??01/21/2024:?14.4 ??01/19/2024:?3.3 ??01/17/2024:?2.6 ADEQUACY?ASSESSMENT spKt/V,?URR ??01/14/2024:?1.49,?73.0 ??12/13/2023:?1.55,?72.0 ??11/15/2023:?1.57,?72.0 ACCESS?ASSESSMENT ??Access?Type:?CVCatheter ??Access?SubType:?Tunneled ??Access?Status:?Active?(In?Use)?-?12/01/2021 ??Access?Location:?Chest ??Placed:?09/29/2021 ANEMIA?ASSESSMENT HGB,?TSAT ??01/17/2024:?13.5,?- ??01/14/2024:?-,?37.0 ??01/10/2024:?12.2,?- ?? Ferritin ??01/14/2024:?652.0 ??12/13/2023:?663.0 ??11/15/2023:?816.0 BMM?ASSESSMENT PTH,?Intact ??01/10/2024:?217.0 ??12/13/2023:?601.0 ??11/15/2023:?703.0 ?? Calcium,?Phosphorus ??01/17/2024:?9.8,?5.1 ??01/14/2024:?8.9,?4.6 ??01/03/2024:?9.0,?6.3 Vitamin?D?(Calcitriol)?Oral?(mcg) ??01/21/2024:?0.75 ??01/19/2024:?0.75 ??01/17/2024:?1.0 NUTRITION?ASSESSMENT Potassium,?Albumin ??01/17/2024:?5.5,?- ??01/14/2024:?5.1,?4.0 ??01/03/2024:?5.9,?- ?? eNPCR ??01/14/2024:?0.9 ??12/13/2023:?1.12 ??11/15/2023:?0.83 DIAGNOSIS Chief?Complaint:?N18.6?End?stage?renal?disease Patient?data?updated?01/24/2024?at?12:51?PM Signed?By:?Lyndsey,?Luna,?ROLLING MACHINE OPERATOR??on?01/24/2024?12:51:53 PM END OF DOCUMENT
--- OUTSIDE RECORDS SUMMARY | 2024-04-22 10:48 | XMS_ITS ---
Author Name Heath Soloriocy Address [address] [place] [id number] Phone [phone] Organization [facility], NA DOCUMENT DISCLAIMER Multiple document versions may exist, please be sure you review the latest version. The information in the [facility] Progress Note Document represents a providers documented clinical note containing certain health and medical information. It may not contain the complete medical history for the patient and should be independently verified. The represented time in the document is Eastern Time PROVIDER ROUNDING NOTE BASIC Patient:?CHRISTY?ARNOL,?1960,?63y,?M Dialysis?Location:?[facility] Attending?Teachers Assistant:?Crystal?Baldemar Service?Date:?10/06/2023 Service?Provider:?Luna?Lyndsey,?RESOURCE MANAGEMENT PLANNER I?met?face?to?face?with?the?patient?today. OVERVIEW The?patient?presented?with?ESRD?on?dialysis Primary?cause?of?renal?failure:?Unspecified?complication?of?kidney?transplant Comments:?09/15/23?-?Recent?admission?for?confusion?and??&#160 ;seizure?activity.?Pts?mental?status?back?at?baseline?today. ?No?further?seizure?activity?reported.?Stable?dialysis.?No complaints.? 08/25/23?-?Stable?treatment. 08/20/23?-?Stable?dialysis?treatment?with?no?acute?issues. 07/16/23?-?Stable?treatment. 06/16/23?-?It?was?reported?that?pts?nursing?home?current ly?has?bed?bugs.?Precautions?taken?at?dialysis.? 05/21/23?-?Stable?treatment?today. 05/17/23?-?Stable?treatment.?No?complaints.?Cath?running?well. 04/26/23?-?Stable?treatment 04/21/23?-?Stable?dialysis?treatment?with?no?complaints?or acute?issues.? 03/02/23?-?Stable?treatment. 02/04/23 Stable?HD.??UFG?appropriately?set. 01/30/2023 Stable?treatment.?No?complaints 01/19/23?-?Tunneled?catheter?was?exchanged,?running?better?no w?with?much?fewer?alarms.?Stable?treatment.? 12/22/22?-?Stable?treatment.?No?complaints.?Multiple?arterial&#160 ;alarms?at?beginning?of?treatment.?Catheter?required?several&#160 ;flushes?and?patient?was?repositioned.?Catheter?then?began?r unning?with?fewer?alarms?at?a?BPS?of?300,?green?amp?light.? 12/10/22?-?Stable?treatment.?Feeling?well. 11/17/22?-?Stable?treatment?with?no?complaints.? 10/13/22?-?scheduled?for?catheter?exchange?tomorrow?due?to poor?flows.? ?-?Carvedilol?stopped?for?reports?of?hypotension?and ?falls?at?nursing?home.?Pt?denies?any?recent?falls. 08/25/22-?Tolerating?HD?well?and?denies?any?new?complaints. 01/17/23-?Tolerating?HD?well?and?denies?any?new?complaints.&#1 60;Metabolic?and?volume?parameters?reviewed.?Education?provided?o n?low?phos?foods, reviewed?monthly?labs?and?UFG. No?changes?made?at?this?time.?Will?consider?adding?loke lma?if?phos?trend?changes?direction. 07/16/22-?Tolerating?HD?well.?Denies?any?concerns. 06/30/22?-?Stable?treatment. 06/18/22?-?RD?will?discuss?elevated?K?with?pts?nursing&# 160;home.?Stable?treatment?today. 06/11/22?-?Stable?treatment?with?no?acute?issues. 05/25/22?-?Stable?treatment,?no?complaints.??States?he? feels?good?on?his?non?dialysis?days. 05/18?Doing?well/?walking?outside/doing?better?with?diet 08/06/22 Blood?flow?on?on?catheter?350?,?has?a?yellow?light ?180?dialyzer.?Will?make?minor?adjustments?to?his?dialy sate?temp,?he?is?willing?to?stay?extra?time?to?achieve?adequacy.? 08/11/22 Increased?hid?time?to?4?hrs?and?he?has?a?green light?today.? Blood?pressure?stable.? Medications?and?labs?reviewed. LAST?HOSPITALIZATION Discharge?Diagnosis:?G40.89?Other?seizures Admission?Date?09/10/23 Discharge?Date?09/14/23 DIALYSIS?PRESCRIPTION ??IHD?3x?Week?Start?date:?08/11/23 ??Dialyzer:?180NRe?Optiflux ??BFR:?450 ??DFR:?Manual?800 ??Potassium:?2.0 ??Sodium:?137 ??EDW:?69.5 ??Duration:?3:45 ??Calcium:?2.5 ??Bicarb:?35 ??Rx?updated?on:?08/11/2023 TREATMENT?ASSESSMENT BP?Stand?Pre ??10/04/2023:?129/71 ??10/01/2023:?96/72 ??09/29/2023:?109/65 BP?Sit?Pre ??10/04/2023:?119/66 ??10/01/2023:?117/76 ??09/29/2023:?108/67 BP?Stand?Post ??10/04/2023:?127/85 ??10/01/2023:?103/74 ??09/29/2023:?102/67 BP?Sit?Post ??10/04/2023:?146/95 ??10/01/2023:?144/67 ??09/29/2023:?106/76 Tx?Duration ??10/04/2023:?4:06 ??10/01/2023:?3:52 ??09/29/2023:?3:48 Missed?Treatments 0?-?last?30?days 0?-?last?60?days FLUID?ASSESSMENT EDW?(kg) ??10/04/2023:?69.5 ??10/01/2023:?69.5 ??09/29/2023:?69.5 Weight?Pre?(kg) ??10/04/2023:?74.5 ??10/01/2023:?74.4 ??09/29/2023:?74.6 Weight?Post?(kg) ??10/04/2023:?70.8 ??10/01/2023:?71.1 ??09/29/2023:?71.3 PWV?(kg) ??10/04/2023:?1.3 ??10/01/2023:?1.6 ??09/29/2023:?1.8 UF?Rate?(mL/kg/hr) ??10/04/2023:?12.7 ??10/01/2023:?12 ??09/29/2023:?12.2 ADEQUACY?ASSESSMENT spKt/V,?URR ??09/15/2023:?1.91,?79.0 ??08/16/2023:?1.83,?79.0 ??07/14/2023:?1.92,?78.0 ACCESS?ASSESSMENT ??Access?Type:?CVCatheter ??Access?SubType:?Tunneled ??Access?Status:?Active?(In?Use)?-?12/01/2021 ??Access?Location:?Chest ??Placed:?09/29/2021 ANEMIA?ASSESSMENT HGB,?TSAT ??09/27/2023:?11.7,?- ??09/20/2023:?12.5,?- ??09/15/2023:?11.8,?26.0 ?? Ferritin ??09/15/2023:?1341.0 ??08/16/2023:?1123.0 ??07/14/2023:?993.0 BMM?ASSESSMENT Phosphorus,?Calcium ??09/27/2023:?4.0,?8.6 ??09/20/2023:?3.6,?9.1 ??09/15/2023:?3.6,?9.1 ?? PTH,?Intact ??09/20/2023:?1035.0 ??09/15/2023:?535.0 ??08/16/2023:?882.0 Vitamin?D?(Calcitriol)?Oral?(mcg) ??10/04/2023:?0.75 ??10/01/2023:?0.75 ??09/29/2023:?0.75 NUTRITION?ASSESSMENT Albumin,?Potassium ??09/27/2023:?-,?5.2 ??09/20/2023:?-,?5.1 ??09/15/2023:?4.1,?5.2 ?? eNPCR ??09/15/2023:?0.83 ??08/16/2023:?1.01 ??07/14/2023:?1.19 DIAGNOSIS Chief?Complaint:?N18.6?End?stage?renal?disease Patient?data?updated?10/06/2023?at?1:23?PM Signed?By:?Lyndsey,?Luna,?RESOURCE MANAGEMENT PLANNER??on?10/06/2023?1:23:47?PM END OF DOCUMENT
--- OUTSIDE RECORDS SUMMARY | 2024-04-22 10:48 | XMS_ITS ---
Author Name Heath Soloriocy Address [address] [place] [id number] Phone [phone] Organization [facility], NA DOCUMENT DISCLAIMER Multiple document versions may exist, please be sure you review the latest version. The information in the [facility] Progress Note Document represents a providers documented clinical note containing certain health and medical information. It may not contain the complete medical history for the patient and should be independently verified. The represented time in the document is Eastern Time PROVIDER ROUNDING NOTE BASIC Patient:?CHRISTY?ARNOL,?1960,?63y,?M Dialysis?Location:?[facility] Attending?Financial Services Rep:?Crystal?Baldemar Service?Date:?02/16/2024 Service?Provider:?Luna?Lyndsey,?BATCHER OPERATOR I?met?face?to?face?with?the?patient?today. OVERVIEW The?patient?presented?with?ESRD?on?dialysis Primary?cause?of?renal?failure:?Unspecified?complication?of?kidney?transplant Comments:?02/11/24?-?Stable?dialysis?treatment?with?no?acute&# 160;issues?or?complaints.?Meeting?EDW.?AVF?functioning?well. 01/24/24?-?Labs,?vital?signs?and?metabolic?parameters?reviewe d.?Stable?treatment?with?no?complaints?or?acute?issues. 01/10/24?-?Stable?dialysis?treatment?with?no?acute?issues or?complaints. 12/27/23?-?Stable?treatment. 11/10/23?-?Stable?treatment?with?no?acute?issues.?States? he?is?feeling?well?on?non?dialysis?days. 10/11/23?-?Stable?treatment.?No?acute?issues. 09/15/23?-?Recent?admission?for?confusion?and???seizure?a [...] ??EDW:?71 ??Duration:?3:45 ??Calcium:?2.5 ??Bicarb:?35 ??Rx?updated?on:?12/25/2023 TREATMENT?ASSESSMENT BP?Stand?Pre ??02/14/2024:?127/72 ??02/11/2024:?112/71 ??02/09/2024:?97/40 BP?Sit?Pre ??02/14/2024:?99/59 ??02/11/2024:?102/53 ??02/09/2024:?103/51 BP?Stand?Post ??02/14/2024:?148/91 ??02/11/2024:?121/55 ??02/09/2024:?134/81 BP?Sit?Post ??02/14/2024:?138/85 ??02/11/2024:?120/78 ??02/09/2024:?136/65 Tx?Duration ??02/14/2024:?3:46 ??02/11/2024:?3:50 ??02/09/2024:?3:53 Missed?Treatments 0?-?last?30?days 0?-?last?60?days FLUID?ASSESSMENT EDW?(kg) ??02/14/2024:?71.0 ??02/11/2024:?71.0 ??02/09/2024:?71.0 Weight?Pre?(kg) ??02/14/2024:?73.8 ??02/11/2024:?72.2 ??02/09/2024:?72.5 Weight?Post?(kg) ??02/14/2024:?70.5 ??02/11/2024:?71.3 ??02/09/2024:?70.8 PWV?(kg) ??02/14/2024:?-0.5 ??02/11/2024:?0.3 ??02/09/2024:?-0.2 UF?Rate?(mL/kg/hr) ??02/14/2024:?12.4 ??02/11/2024:?3.3 ??02/09/2024:?6.2 ADEQUACY?ASSESSMENT spKt/V,?URR ??01/14/2024:?1.49,?73.0 ??12/13/2023:?1.55,?72.0 ??11/15/2023:?1.57,?72.0 ACCESS?ASSESSMENT ??Access?Type:?CVCatheter ??Access?SubType:?Tunneled ??Access?Status:?Active?(In?Use)?-?12/01/2021 ??Access?Location:?Chest ??Placed:?09/29/2021 ANEMIA?ASSESSMENT HGB ??02/14/2024:?12.9 ??02/07/2024:?12.9 ??01/31/2024:?12.7 ?? Ferritin ??01/14/2024:?652.0 ??12/13/2023:?663.0 ??11/15/2023:?816.0 BMM?ASSESSMENT PTH,?Intact ??02/14/2024:?400.0 ??01/10/2024:?217.0 ??12/13/2023:?601.0 ?? Calcium,?Phosphorus ??02/07/2024:?10.1,?2.8 ??01/31/2024:?9.9,?3.5 ??01/24/2024:?9.0,?4.1 Vitamin?D?(Calcitriol)?Oral?(mcg) ??02/14/2024:?1.0 ??02/11/2024:?0.75 ??02/09/2024:?0.75 NUTRITION?ASSESSMENT Potassium ??02/07/2024:?5.5 ??01/31/2024:?5.5 ??01/24/2024:?5.4 ?? eNPCR ??01/14/2024:?0.9 ??12/13/2023:?1.12 ??11/15/2023:?0.83 DIAGNOSIS Chief?Complaint:?N18.6?End?stage?renal?disease Patient?data?updated?02/16/2024?at?11:35?AM Signed?By:?Lyndsey,?Luna,?BATCHER OPERATOR??on?02/16/2024?11:35:23 AM END OF DOCUMENT
--- OUTSIDE RECORDS SUMMARY | 2024-04-22 10:48 | XMS_ITS ---
Author Name Luna Solorio Address [address] [place] [address] Phone [phone] Organization [facility], NA DOCUMENT DISCLAIMER Multiple document versions may exist, please be sure you review the latest version. The information in the [facility] Progress Note Document represents a providers documented clinical note containing certain health and medical information. It may not contain the complete medical history for the patient and should be independently verified. The represented time in the document is Eastern Time PROVIDER ROUNDING NOTE BASIC THIS NOTE HAS BEEN VOIDED IN THE SOURCE SYSTEM. END OF DOCUMENT
--- OUTSIDE RECORDS SUMMARY | 2024-04-22 10:48 | XMS_ITS ---
Author Name Heath Soloriocy Address [address] [place] [id number] Phone [phone] Organization [facility], NA DOCUMENT DISCLAIMER Multiple document versions may exist, please be sure you review the latest version. The information in the [facility] Progress Note Document represents a providers documented clinical note containing certain health and medical information. It may not contain the complete medical history for the patient and should be independently verified. The represented time in the document is Eastern Time PROVIDER ROUNDING NOTE BASIC Patient:?CHRISTY?ARNOL,?1960,?63y,?M Dialysis?Location:?[facility] Attending?Early Childhood Lead Teacher:?Crystal?Baldemar Service?Date:?04/07/2024 Service?Provider:?Luna?Lyndsey,?MOLD MACHINE OPERATOR I?met?face?to?face?with?the?patient?today. OVERVIEW The?patient?presented?with?ESRD?on?dialysis Primary?cause?of?renal?failure:?Unspecified?complication?of?kidney?transplant Comments:?04/07/24?-?Stable?treatment.?Meeting?EDW?and?adequacy?goals.? 03/24/24?-?Discussed?in?detail?what?DNR?means?and?what&# 160;resuscitation?means.?When?pt?asked?if?he?wished?for&#160 ;CPRN?to?be?preformed?if?necessary,?he?answered?well&# 160;certainly!.?Team?made?aware. 02/21/24?-?Stable?treatment 02/11/24?-?Stable?dialysis?treatment?with?no?acute?issues&#160 ;or?complaints.?Meeting?EDW.?AVF?functioning?well. 01/24/24?-?Labs,?vital?signs?and?metabolic?parameters?reviewe d.?Stable?treatment?with?no?complaints?or?acute?issues. 01/10/24?-?Stable?dialysis?treatment?with?no?acute?issues or?complaints. 12/27/23?-?Stable?treatment. 11/10/23?-?Stable?treatment?with?no?acute?issues.?States? he?is?feeling?well?on?non?dialysis?days. [...] Blood?pressure?stable.? Medications?and?labs?reviewed. LAST?HOSPITALIZATION Discharge?Diagnosis:?G40.89?Other?seizures Admission?Date?09/10/23 Discharge?Date?09/14/23 DIALYSIS?PRESCRIPTION ??IHD?3x?Week?Start?date:?03/17/24 ??Dialyzer:?180NRe?Optiflux ??BFR:?450 ??DFR:?Manual?800 ??Potassium:?2.0 ??Sodium:?137 ??EDW:?71 ??Duration:?3:45 ??Calcium:?2.5 ??Bicarb:?35 ??Rx?updated?on:?03/15/2024 TREATMENT?ASSESSMENT BP?Stand?Pre ??04/05/2024:?118/76 ??04/03/2024:?142/80 ??03/31/2024:?128/48 BP?Sit?Pre ??04/05/2024:?134/74 ??04/03/2024:?146/72 ??03/31/2024:?112/57 BP?Stand?Post ??04/05/2024:?127/72 ??04/03/2024:?141/95 ??03/31/2024:?126/87 BP?Sit?Post ??04/05/2024:?153/95 ??04/03/2024:?133/75 ??03/31/2024:?117/73 Tx?Duration ??04/05/2024:?3:47 ??04/03/2024:?3:46 ??03/31/2024:?3:49 Missed?Treatments 0?-?last?30?days 0?-?last?60?days FLUID?ASSESSMENT EDW?(kg) ??04/05/2024:?71.0 ??04/03/2024:?71.0 ??03/31/2024:?71.0 Weight?Pre?(kg) ??04/05/2024:?73.0 ??04/03/2024:?73.1 ??03/31/2024:?72.0 Weight?Post?(kg) ??04/05/2024:?70.5 ??04/03/2024:?71.4 ??03/31/2024:?71.0 PWV?(kg) ??04/05/2024:?-0.5 ??04/03/2024:?0.4 ??03/31/2024:?0.0 UF?Rate?(mL/kg/hr) ??04/05/2024:?9.4 ??04/03/2024:?6.3 ??03/31/2024:?3.7 ADEQUACY?ASSESSMENT spKt/V,?URR ??03/13/2024:?1.63,?74.0 ??02/14/2024:?1.52,?71.0 ??01/14/2024:?1.49,?73.0 ACCESS?ASSESSMENT ??Access?Type:?CVCatheter ??Access?SubType:?Tunneled ??Access?Status:?Active?(In?Use)?-?12/01/2021 ??Access?Location:?Chest ??Placed:?09/29/2021 ANEMIA?ASSESSMENT HGB ??04/03/2024:?12.2 ??03/27/2024:?12.4 ??03/20/2024:?12.6 ?? Ferritin ??03/13/2024:?702.0 ??02/14/2024:?681.0 ??01/14/2024:?652.0 BMM?ASSESSMENT PTH,?Intact ??03/13/2024:?153.0 ??02/14/2024:?400.0 ??01/10/2024:?217.0 ?? Calcium,?Phosphorus ??03/20/2024:?9.2,?- ??03/13/2024:?9.7,?4.0 ??03/06/2024:?9.3,?- Vitamin?D?(Calcitriol)?Oral?(mcg) ??04/05/2024:?0.75 ??04/03/2024:?0.75 ??03/31/2024:?0.75 NUTRITION?ASSESSMENT Potassium ??04/03/2024:?5.6 ??03/27/2024:?5.6 ??03/20/2024:?5.4 ?? 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
--- OUTSIDE RECORDS SUMMARY | 2024-04-22 10:48 | XMS_ITS ---
Author Name Lyndsey, Luna Address [address] [place] [id number] Phone [phone] Organization [facility], NA DOCUMENT DISCLAIMER Multiple document versions may exist, please be sure you review the latest version. The information in the [facility] Progress Note Document represents a providers documented clinical note containing certain health and medical information. It may not contain the complete medical history for the patient and should be independently verified. The represented time in the document is Eastern Time PROVIDER ROUNDING NOTE BASIC Patient:?CHRISTY?ARNOL,?1960,?63y,?M Dialysis?Location:?[facility] Attending?Highway Patrol Commander:?Crystal?Baldemar Service?Date:?08/20/2023 Service?Provider:?Luna?Lyndsey,?SECURITIES ADVISER I?met?face?to?face?with?the?patient?today. OVERVIEW The?patient?presented?with?ESRD?on?dialysis Primary?cause?of?renal?failure:?Unspecified?complication?of?kidney?transplant Comments:?08/20/23?-?Stable?dialysis?treatment?with?no?acute issues.? 07/16/23?-?Stable?treatment. 06/16/23?-?It?was?reported?that?pts?nursing?home?current ly?has?bed?bugs.?Precautions?taken?at?dialysis.? 05/21/23?-?Stable?treatment?today. 05/17/23?-?Stable?treatment.?No?complaints.?Cath?running?well. 04/26/23?-?Stable?treatment 04/21/23?-?Stable?dialysis?treatment?with?no?complaints?or acute?issues.? 03/02/23?-?Stable?treatment. 02/04/23 Stable?HD.??UFG?appropriately?set. 01/30/2023 Stable?treatment.?No?complaints 01/19/23?-?Tunneled?catheter?was?exchanged,?running?better?no w?with?much?fewer?alarms.?Stable?treatment.? 12/22/22?-?Stable?treatment.?No?complaints.?Multiple?arterial&#160 ;alarms?at?beginning?of?treatment.?Catheter?required?several&#160 ;flushes?and?patient?was?repositioned.?Catheter?then?began?r unning?with?fewer?alarms?at?a?BPS?of?300,?green?amp?light.? 12/10/22?-?Stable?treatment.?Feeling?well. 11/17/22?-?Stable?treatment?with?no?complaints.? 10/13/22?-?scheduled?for?catheter?exchange?tomorrow?due?to poor?flows.? ?-?Carvedilol?stopped?for?reports?of?hypotension?and ?falls?at?nursing?home.?Pt?denies?any?recent?falls. 08/25/22-?Tolerating?HD?well?and?denies?any?new?complaints. 01/17/23-?Tolerating?HD?well?and?denies?any?new?complaints.&#1 60;Metabolic?and?volume?parameters?reviewed.?Education?provided?o n?low?phos?foods, reviewed?monthly?labs?and?UFG. No?changes?made?at?this?time.?Will?consider?adding?loke lma?if?phos?trend?changes?direction. 07/16/22-?Tolerating?HD?well.?Denies?any?concerns. 06/30/22?-?Stable?treatment. 06/18/22?-?RD?will?discuss?elevated?K?with?pts?nursing&# 160;home.?Stable?treatment?today. 06/11/22?-?Stable?treatment?with?no?acute?issues. 11/14/22?-?Stable?treatment,?no?complaints.??States?he? feels?good?on?his?non?dialysis?days. 05/18?Doing?well/?walking?outside/doing?better?with?diet 08/06/22 Blood?flow?on?on?catheter?350?,?has?a?yellow?light ?180?dialyzer.?Will?make?minor?adjustments?to?his?dialy sate?temp,?he?is?willing?to?stay?extra?time?to?achieve?adequacy.? 08/11/22 Increased?hid?time?to?4?hrs?and?he?has?a?green light?today.? Blood?pressure?stable.? Medications?and?labs?reviewed. LAST?HOSPITALIZATION Discharge?Diagnosis:?R03.1?Nonspecific?low?blood-pressure?reading Admission?Date?10/19/22 Discharge?Date?10/21/22 DIALYSIS?PRESCRIPTION ??IHD?3x?Week?Start?date:?08/11/23 ??Dialyzer:?180NRe?Optiflux ??BFR:?450 ??DFR:?Manual?800 ??Potassium:?2.0 ??Sodium:?137 ??EDW:?69.5 ??Duration:?3:45 ??Calcium:?2.5 ??Bicarb:?35 ??Rx?updated?on:?08/11/2023 TREATMENT?ASSESSMENT BP?Stand?Pre ??08/18/2023:?108/64 ??08/16/2023:?104/70 ??08/13/2023:?91/67 BP?Sit?Pre ??08/18/2023:?132/61 ??08/16/2023:?112/61 ??08/13/2023:?90/60 BP?Stand?Post ??08/18/2023:?96/60 ??08/16/2023:?104/79 ??08/13/2023:?105/67 BP?Sit?Post ??08/18/2023:?103/70 ??08/16/2023:?121/74 ??08/13/2023:?108/85 Tx?Duration ??08/18/2023:?3:51 ??08/16/2023:?3:49 ??08/13/2023:?3:45 Missed?Treatments 0?-?last?30?days 0?-?last?60?days FLUID?ASSESSMENT EDW?(kg) ??08/18/2023:?69.5 ??08/16/2023:?69.5 ??08/13/2023:?69.5 Weight?Pre?(kg) ??08/18/2023:?72.3 ??08/16/2023:?73.1 ??08/13/2023:?71.2 Weight?Post?(kg) ??08/18/2023:?69.9 ??08/16/2023:?70.6 ??08/13/2023:?69.2 PWV?(kg) ??08/18/2023:?0.4 ??08/16/2023:?1.1 ??08/13/2023:?-0.3 UF?Rate?(mL/kg/hr) ??08/18/2023:?8.9 ??08/16/2023:?9.3 ??08/13/2023:?7.7 ADEQUACY?ASSESSMENT spKt/V,?URR ??08/16/2023:?1.83,?79.0 ??07/14/2023:?1.92,?78.0 ??06/14/2023:?1.69,?75.0 ACCESS?ASSESSMENT ??Access?Type:?CVCatheter ??Access?SubType:?Tunneled ??Access?Status:?Active?(In?Use)?-?12/01/2021 ??Access?Location:?Chest ??Placed:?09/29/2021 ANEMIA?ASSESSMENT HGB,?TSAT ??08/16/2023:?12.1,?31.0 ??08/09/2023:?12.8,?- ??08/02/2023:?11.5,?- ?? Ferritin ??08/16/2023:?1123.0 ??07/14/2023:?993.0 ??06/14/2023:?927.0 Iron?Sucrose?(Venofer)?(mg) ??07/02/2023:?100 ??06/30/2023:?100 ??06/28/2023:?100 BMM?ASSESSMENT Phosphorus,?Calcium ??08/16/2023:?4.1,?9.2 ??08/09/2023:?4.2,?9.1 ??08/02/2023:?3.9,?9.0 ?? PTH,?Intact ??08/16/2023:?882.0 ??07/14/2023:?892.0 ??06/14/2023:?1063.0 Vitamin?D?(Calcitriol)?Oral?(mcg) ??08/18/2023:?0.50 ??08/16/2023:?0.50 ??08/13/2023:?0.50 NUTRITION?ASSESSMENT Albumin,?Potassium ??08/16/2023:?4.5,?5.6 ??08/09/2023:?-,?4.7 ??08/02/2023:?-,?5.6 ?? eNPCR ??08/16/2023:?1.01 ??07/14/2023:?1.19 ??06/14/2023:?0.83 DIAGNOSIS Chief?Complaint:?N18.6?End?stage?renal?disease Patient?data?updated?08/20/2023?at?2:24?PM Signed?By:?Lyndsey,?Luna,?SECURITIES ADVISER??on?08/20/2023?2:24:55?PM END OF DOCUMENT
--- OUTSIDE RECORDS SUMMARY | 2024-04-22 10:48 | XMS_ITS ---
Author Name Crystal Mcdermott Address [address] [place] [address] Phone [phone] Organization [facility], NA DOCUMENT DISCLAIMER Multiple document versions may exist, please be sure you review the latest version. The information in the [facility] Progress Note Document represents a providers documented clinical note containing certain health and medical information. It may not contain the complete medical history for the patient and should be independently verified. The represented time in the document is Eastern Time PROVIDER ROUNDING NOTE COMP HD PROVIDER?ROUNDING?NOTE?COMP?HD Clinic:?[address] [place] [address] Visit?date:?05/28/2022?00:00?Modality/setting:?IHD CHRISTY?ARNLO?-?Chart?#:?[id number] Method?of?Interaction:?Face?to?face Date?of?Interaction:?12/31/2023 ?-?Patient?is?stable ?-?Medications?and?labs?reviewed. Patient?issues?include: 09/20/2023?-?Recently?had?a?seizure. Prior?Treatment:?12/29/2023? Dialyzer:?180NRe?Optiflux? Dialysate:?2.0?K,?2.5 Ca,?1.0?Mg,?100?Dextrose?(G2251)? Prescribed?Time:?3:45?Avg?BFR:?460?Wt?Gain (kg):?1.60? Actual?Time:?03:50?Avg?DFR:?800?&#16 0;EDW?(kg):?71.00? Volume?Management?Comments: 06/02/2023?-?Euvolemic.??At/below?target?weight.??Decreased EDW?to?70.??? 07/28/2023?-?Euvolemic.??EDW?recently?decreased?based?on&#16 0;post-rx?weights.??No change.?09/01/2023?-?Euvolemic.??Achieving?target weight.??No?change.??? 09/20/2023?-?High?gains?last?2?treatments;?not?usually?the?case.??Euvolemic.? Achieving?target?weight.?10/29/2023?-?Continues?to?have?high?gains.??Not achieving?target?weight.??EDW?changed?to?70;?will?try&# 160;to?gently?challenge.??? 12/03/2023?-?Euvolemic.??Achieving?target?weight.??No?change.?12/31/2023?- Fluid?gains?have?increased?somewhat.??Achieving?target?weight.??No?change. Adequacy ?spKt/V?eKdrt/V?&#160 ; ???OLC?(Nlio)?spKtv?URR?%?1.55?12/13/23?? ?1.35?12/13/23?? ?1.51?0 12/29/23?? ?72?12/13/23? ?1.57?11/15/23?? ?1.35?11/15/23?? ?1.59?0 12/27/23?? ?72?11/15/23? ?1.61?10/11/23?? ?1.39?10/11/23?? ?1.70?0 12/24/23?? ?74?10/11/23? ?Potassium,?Serum?mEq/L?Bicarbonate?mEq/L??&# 160;?Creatinine?mg/dL?4.9?12/27/23? 22?12/13/23?12 .04?12/13/23?5.2?12/20/23? 22?11/15/23?11 .40?08/26/20?5.7?12/13/23? 24?10/11/23?&# 160;?-?-?Adequacy?parameters?reviewed Adequacy ?-?Adequacy?target?met ?Sitting?BP?Pre?Sitting BP?Post?Systolic/Diastolic?Systolic/Diastolic?106?/?55??12/29/23?135?/?60??12/29/23?103?/?67??12/27/23?106?/?64??12/27/23?107?/?56??12/24/23?127?/?60??12/24/23?? Blood?Pressure ?-?Blood?pressure?controlled Fluid?Status ?-?Fluid?status?acceptable Interdialytic?Weight?Gain ?-?Interdialytic?weight?gain?acceptable Prescription?Compliance ?-?Prescription?compliance?acceptable ?-?Potassium?controlled 07/28/2023?-?On?Lokelma.?10/29/2023?-?BP?not&#1 60;always?well?controlled.??Will try?to?gently?challenge?weight,?revisit?fluid?restriction,?and?see?if?that?will bring?the?BP?into?range.?12/03/2023?-?K+?slightly?high.??On?2K?bath?and Lokelma.??Will?continue?to?monitor. Anemia ?HGB?g/dL? Transferrin?Sat.?(Calc)?%?Ferritin?ng/mL&#160 ;?12.8?12/27/23?33?12/13/23?663 ?12/13/23?? ?12.4?12/20/23?35?11/15/23?816 ?11/15/23?? ?12.2?12/13/23?25?10/11/23?1132 ?10/11/23?? CRISTY?Administrations ??0?mcg?Mircera?07/25/22 ??0?mcg?Mircera?07/11/22 ??0?mcg?Mircera?06/27/22 IV?Iron?Administrations ??0?mg?Venofer?12/03/23 ??0?mg?Venofer?11/26/23 ??100?mg?Venofer?07/02/23 ?-?Anemia?reviewed ?-?Anemia?targets?met Bone?and?Mineral?Metabolism ??Calcium,?Total?mg/dL?? Calcium,?Corrected?mg/dL ?&#1 60;??Phosphorous?mg/dL??? PTH-Intact,?Plasma?pg/mL ??8.5?12/27/23? 8.7?12/13/23?5.7&#16 0;?12/27/23?601?12/13/23?8.9?12/20/23? 8.5?11/15/23?5.9&#16 0;?12/20/23?703?11/15/23?8.9?12/13/23? 9.0?10/11/23?4.8&#16 0;?12/13/23?439?10/11/23?Vitamin?D?25?Hydroxy?ng/mL? ?Vitamin?D?Analogue? Administrations?Calcimimetics?51.5?12/13/23?0.75?mcg?Vitamin?D??12/29/23??& #160;?-?46.0?09/15/23?1?mcg?Vitamin?D?(Ca?12/27/23??& #160;?-?56.5?06/14/23?0.75?mcg?Vitamin?D??12/24/23??& #160;?-? PTH ?-?PTH?within?target ?-?Bone?and?mineral?metabolism?parameters?reviewed ?-?Calcium?controlled ?-?Hyperphosphatemia?noted 07/28/2023?-?PTH?still?above?target.??Will?increase?calcitriol?to?0.5mcg?qrx.??? 09/01/2023?-?PTH?stable?but?still?above?target.??Will&# 160;increase?calcitriol?to 0.75mcg?qrx,?keeping?a?close?eye?on?calcium.???&#1 60;12/03/2023?-?PTH?within?target, but?significantly?increased?since?last?month.??Will?change&# 160;calcitriol?to?1mcg? on?Mondays?and?continue?0.75mcg?on?Wed.?and?Fri.?12/31/2023?-?Sevelamer previously?held?for?low?phos.??Will?resume?800mg?with&# 160;meals.??Once?phos?is?in range,?will?likely?increase?calcitriol. Nutrition ?Albumin?g/dL? eNPCR?g/kg/day?4.3?12/13/23?? ?1.12?12/13/23?? ?4.2?11/15/23?? ?0.83?11/15/23?? ?4.2?10/11/23?? ?0.87?10/11/23?? ?-?Nutrition?reviewed Home?Medications ?acetaminophen?(acetaminophen) 500?mg,?oral,?2?tablet?three?times?a?day ??allopurinol?(allopurinol) 100?mg,?oral,?1?tablet?once?a?day ??Mt?Low?Dose?Aspirin?(aspirin) 81?mg,?oral,?1?tablet?once?a?day ??benzonatate?(benzonatate) 100?mg,?oral,?1??as?directed ??levetiracetam?(levetiracetam) 250?mg,?oral,?1?tablet?three?times?a?week [POST?Dialysis] ??levetiracetam?(levetiracetam) 500?mg,?oral,?1?tablet?twice?a?day ??levothyroxine?(levothyroxine) 100?mcg,?oral,?1?tablet?once?a?day ??Mucinex?(guaifenesin) 600?mg,?oral,?1?tablet?every?twelve?hours ??pantoprazole?(pantoprazole) 20?mg,?oral,?1?tablet?once?a?day ??Tania-Madiha?(b?complex-vitamin?c-folic?acid) 0.8?mg,?oral,?1?tablet?once?a?day ??tacrolimus?(tacrolimus) 1?mg,?oral,?1?capsule?twice?a?day ??Veltassa?(patiromer?calcium?sorbitex) 25.2?gram,?oral,?1?packet?once?a?day [take?4?times?a?wk?on?non?dialysis?days,?as?needed?to?reach?desired?K+target.] Vascular?Access?-?Active/Maturing ?Type?Position/Location?Status?Access?ID?CVCatheter-Tunneled?Chest?Active?(In?Use)?[id number]?-?-?&# 160;?-? -?-?-?&# 160;?-? -? Access?Flows ??1391mL?per?min?10/22/21 ??1256mL?per?min?08/29/21 ??1559mL?per?min?08/27/21 ?-?Vascular?access?reviewed ?-?Current?access?is?functioning?well. 05/28/2022?-?PERMANENT?TDC.?? Exam ?-?Vital?signs?reviewed Pulmonary ?-?LUNGS?-?clear Cardiovascular ?-?CV?-?Blood?pressure?noted ?-?CV?-?RRR Edema ?-?EXT?-?No?edema Transplant?Status Topic Exploring?Alternative?Treatment?Options: Kidney?Transplant ?Person?Taught: ?-?Patient ?Additional?Education?Required:?No ?Date?Given:?07/02/2022 Interest?and?Eligibility?(If?changes?are?made,?Please?notify?SW?via?alert?below) ?Date?of?discussion?from?transplant?assessment:?09/08/2023 ?Patient?already?on?transplant?list??No Tobacco?Cessation ??Tobacco?use:?Never?used Crystal?Baldemar,? END OF DOCUMENT
--- OUTSIDE RECORDS SUMMARY | 2024-04-22 10:48 | XMS_ITS ---
Author Name Heath Soloriocy Address [address] [place] [address] Phone [phone] Organization [facility], NA DOCUMENT DISCLAIMER Multiple document versions may exist, please be sure you review the latest version. The information in the [facility] Progress Note Document represents a providers documented clinical note containing certain health and medical information. It may not contain the complete medical history for the patient and should be independently verified. The represented time in the document is Eastern Time PROVIDER ROUNDING NOTE BASIC Patient:?CHRISTY?ARNOL,?1960,?63y,?M Dialysis?Location:?[facility] Attending?Railroad Maintenance Clerk:?Crystal?Baldemar Service?Date:?04/14/2024 Service?Provider:?Luna?Lyndsey,?AMMUNITION ASSEMBLY I LABORER I?met?face?to?face?with?the?patient?today. OVERVIEW The?patient?presented?with?ESRD?on?dialysis Primary?cause?of?renal?failure:?Unspecified?complication?of?kidney?transplant Comments:?04/14/24?-?Stable?hemodialysis?treatment?with?no?co mplaints?or?acute?issues. 04/07/24?-?Stable?treatment.?Meeting?EDW?and?adequacy?goals. 03/24/24?-?Discussed?in?detail?what?DNR?means?and?what&# 160;resuscitation?means.?When?pt?asked?if?he?wished?for&#160 ;CPRN?to?be?preformed?if?necessary,?he?answered?well&# 160;certainly!.?Team?made?aware. 02/21/24?-?Stable?treatment 02/11/24?-?Stable?dialysis?treatment?with?no?acute?issues&#160 ;or?complaints.?Meeting?EDW.?AVF?functioning?well. [...] ??EDW:?71 ??Duration:?3:45 ??Calcium:?2.5 ??Bicarb:?35 ??Rx?updated?on:?03/15/2024 TREATMENT?ASSESSMENT BP?Stand?Pre ??04/12/2024:?102/64 ??04/10/2024:?167/63 ??04/07/2024:?109/64 BP?Sit?Pre ??04/12/2024:?99/54 ??04/10/2024:?119/55 ??04/07/2024:?91/48 BP?Stand?Post ??04/12/2024:?112/88 ??04/10/2024:?156/89 ??04/07/2024:?128/67 BP?Sit?Post ??04/12/2024:?104/72 ??04/10/2024:?111/57 ??04/07/2024:?125/73 Tx?Duration ??04/12/2024:?3:56 ??04/10/2024:?3:50 ??04/07/2024:?3:48 Missed?Treatments 0?-?last?30?days 0?-?last?60?days FLUID?ASSESSMENT EDW?(kg) ??04/12/2024:?71.0 ??04/10/2024:?71.0 ??04/07/2024:?71.0 Weight?Pre?(kg) ??04/12/2024:?71.1 ??04/10/2024:?72.7 ??04/07/2024:?73.1 Weight?Post?(kg) ??04/12/2024:?71.4 ??04/10/2024:?71.4 ??04/07/2024:?70.4 PWV?(kg) ??04/12/2024:?0.4 ??04/10/2024:?0.4 ??04/07/2024:?-0.6 UF?Rate?(mL/kg/hr) ??04/12/2024:?-1.1 ??04/10/2024:?4.7 ??04/07/2024:?10.1 ADEQUACY?ASSESSMENT spKt/V,?URR ??03/13/2024:?1.63,?74.0 ??02/14/2024:?1.52,?71.0 ??01/14/2024:?1.49,?73.0 ACCESS?ASSESSMENT ??Access?Type:?CVCatheter ??Access?SubType:?Tunneled ??Access?Status:?Active?(In?Use)?-?12/01/2021 ??Access?Location:?Chest ??Placed:?09/29/2021 ANEMIA?ASSESSMENT HGB ??04/10/2024:?12.1 ??04/03/2024:?12.2 ??03/27/2024:?12.4 ?? Ferritin ??03/13/2024:?702.0 ??02/14/2024:?681.0 ??01/14/2024:?652.0 BMM?ASSESSMENT PTH,?Intact ??03/13/2024:?153.0 ??02/14/2024:?400.0 ??01/10/2024:?217.0 ?? Calcium,?Phosphorus ??03/20/2024:?9.2,?- ??03/13/2024:?9.7,?4.0 ??03/06/2024:?9.3,?- Vitamin?D?(Calcitriol)?Oral?(mcg) ??04/12/2024:?0.75 ??04/10/2024:?0.75 ??04/07/2024:?0.75 NUTRITION?ASSESSMENT Potassium ??04/10/2024:?5.4 ??04/03/2024:?5.6 ??03/27/2024:?5.6 ?? eNPCR ??03/13/2024:?0.92 ??02/14/2024:?0.83 ??01/14/2024:?0.9 DIAGNOSIS Chief?Complaint:?N18.6?End?stage?renal?disease Patient?data?updated?04/14/2024?at?11:40?AM Signed?By:?Lyndsey,?Luna,?AMMUNITION ASSEMBLY I LABORER??on?04/14/2024?11:40:29 AM END OF DOCUMENT
--- OUTSIDE RECORDS SUMMARY | 2024-04-22 10:48 | XMS_ITS ---
Author Name Crystal Mcdermott Address [address] [place] [address] Phone [phone] Organization [facility] e, NA DOCUMENT DISCLAIMER Multiple document versions may exist, please be sure you review the latest version. The information in the [facility] Progress Note Document represents a providers documented clinical note containing certain health and medical information. It may not contain the complete medical history for the patient and should be independently verified. The represented time in the document is Eastern Time PROVIDER ROUNDING NOTE COMP HD PROVIDER?ROUNDING?NOTE?COMP?HD Clinic:?[address] [place] [address] Visit?date:?05/28/2022?00:00?Modality/setting:?IHD CHRISTY?ARNOL?-?Chart?#:?[id number] Method?of?Interaction:?Face?to?face Date?of?Interaction:?09/01/2023 ?-?Patient?is?stable ?-?Medications?and?labs?reviewed. Prior?Treatment:?08/30/2023? Dialyzer:?180NRe?Optiflux? Dialysate:?2.0?K,?2.5 Ca,?1.0?Mg,?100?Dextrose?(G2251)? Prescribed?Time:?3:45?Avg?BFR:?450?Wt?Gain (kg):?2.70? Actual?Time:?03:50?Avg?DFR:?800?&#16 0;EDW?(kg):?69.50? Volume?Management?Comments: 06/02/2023?-?Euvolemic.??At/below?target?weight.??Decreased EDW?to?70.??? 07/28/2023?-?Euvolemic.??EDW?recently?decreased?based?on&#16 0;post-rx?weights.??No change.?09/01/2023?-?Euvolemic.??Achieving?target weight.??No?change. Adequacy ?spKt/V?eKdrt/V?&#160 ; ???OLC?(Del)?spKtv?URR?%?1.83?08/16/23?? ?1.59?08/16/23?? ?1.69?0 08/30/23?? ?79?08/16/23? ?1.92?07/14/23?? ?1.72?07/14/23?? ?1.94?0 08/27/23?? ?78?07/14/23? ?1.69?06/14/23?? ?1.44?06/14/23?? ?1.77?0 08/25/23?? ?75?06/14/23? ?Potassium,?Serum?mEq/L?Bicarbonate?mEq/L??&# 160;?Creatinine?mg/dL?5.4?08/30/23? 24?08/16/23?11 .40?08/26/20?5.5?08/23/23? 20?07/14/23?&# 160;?-?5.6?08/16/23? 22?06/14/23?&# 160;?-?-?Adequacy?parameters?reviewed Adequacy ?-?Adequacy?target?met ?Sitting?BP?Pre?Sitting BP?Post?Systolic/Diastolic?Systolic/Diastolic?124?/?72??08/30/23?119?/?78??08/30/23?92?/?41??08/27/23?106?/?79 ?08/27/23?93?/?68??08/25/23?113?/?76 ?08/25/23?? Blood?Pressure ?-?Blood?pressure?controlled Fluid?Status ?-?Fluid?status?acceptable Interdialytic?Weight?Gain ?-?Interdialytic?weight?gain?acceptable Prescription?Compliance ?-?Prescription?compliance?acceptable ?-?Potassium?controlled 07/28/2023?-?On?Lozoema. Anemia ?HGB?g/dL? Transferrin?Sat.?(Calc)?%?Ferritin?ng/mL&#160 ;?13.5?08/30/23?31?08/16/23?1123 ?08/16/23?? ?12.7?08/23/23?31?07/14/23?993 ?07/14/23?? ?12.1?08/16/23?28?06/14/23?927 ?06/14/23?? CRISTY?Administrations ??0?mcg?Mircera?07/25/22 ??0?mcg?Mircera?07/11/22 ??0?mcg?Mircera?06/27/22 IV?Iron?Administrations ??100?mg?Venofer?07/02/23 ??100?mg?Venofer?06/30/23 ??100?mg?Venofer?06/28/23 ?-?Anemia?reviewed ?-?Anemia?targets?met Bone?and?Mineral?Metabolism ??Calcium,?Total?mg/dL?? Calcium,?Corrected?mg/dL ?&#1 60;??Phosphorous?mg/dL??? PTH-Intact,?Plasma?pg/mL ??9.2?08/30/23? 8.8?08/16/23?4.6&#16 0;?08/30/23?882?08/16/23?9.0?08/23/23? 8.4?07/14/23?4.2&#16 0;?08/23/23?892?07/14/23?9.2?08/16/23? 8.6?06/14/23?4.1&#16 0;?08/16/23?1063?06/14/23?Vitamin?D?25?Hydroxy?ng/mL? ?Vitamin?D?Analogue? Administrations?Calcimimetics?56.5?06/14/23?0.5?mcg?Vitamin?D?(?08/30/23??& #160;?-?64.2?04/12/23?0.5?mcg?Vitamin?D?(?08/27/23??& #160;?-?73.3?01/12/23?0.5?mcg?Vitamin?D?(?08/25/23??& #160;?-? PTH ?-?PTH?elevated ?-?Bone?and?mineral?metabolism?parameters?reviewed ?-?Calcium?controlled ?-?Phosphorus?controlled 07/28/2023?-?PTH?still?above?target.??Will?increase?calcitriol?to?0.5mcg?qrx.??? 09/01/2023?-?PTH?stable?but?still?above?target.??Will&# 160;increase?calcitriol?to 0.75mcg?qrx,?keeping?a?close?eye?on?calcium. Nutrition ?Albumin?g/dL? eNPCR?g/kg/day?4.5?08/16/23?? ?1.01?08/16/23?? ?4.4?07/14/23?? ?1.19?07/14/23?? ?4.3?06/14/23?? ?0.83?06/14/23?? ?-?Nutrition?reviewed Home?Medications ?acetaminophen?(acetaminophen) 500?mg,?oral,?2?tablet?three?times?a?day ??allopurinol?(allopurinol) 100?mg,?oral,?1?tablet?once?a?day ??Mt?Low?Dose?Aspirin?(aspirin) 81?mg,?oral,?1?tablet?once?a?day ??benzonatate?(benzonatate) 100?mg,?oral,?1??as?directed ??levetiracetam?(levetiracetam) 500?mg,?oral,?1?tablet?twice?a?day ??levothyroxine?(levothyroxine) 100?mcg,?oral,?1?tablet?once?a?day ??Mucinex?(guaifenesin) 600?mg,?oral,?1?tablet?every?twelve?hours ??pantoprazole?(pantoprazole) 20?mg,?oral,?1?tablet?once?a?day ??Tania-Madiha?(b?complex-vitamin?c-folic?acid) 0.8?mg,?oral,?1?tablet?once?a?day ??tacrolimus?(tacrolimus) 1?mg,?oral,?1?capsule?twice?a?day ??Veltassa?(patiromer?calcium?sorbitex) 8.4?gram,?oral,?1?packet?once?a?day [take?8.4?g/day?only?on?non-dialysis?days.?Increase?weekly&# 160;by?8.4g?1?day?as?needed?to?reach?desired?K+target.] Vascular?Access?-?Active/Maturing ?Type?Position/Location?Status?Access?ID?CVCatheter-Tunneled?Chest?Active?(In?Use)?[id number]?-?-?&# 160;?-? -?-?-?&# 160;?-? -? Access?Flows ??1391mL?per?min?10/22/21 ??1256mL?per?min?08/29/21 ??1559mL?per?min?08/27/21 ?-?Vascular?access?reviewed ?-?Current?access?is?functioning?well. 05/28/2022?-?PERMANENT?TDC.?? Exam ?-?Vital?signs?reviewed Pulmonary ?-?LUNGS?-?clear Cardiovascular ?-?CV?-?Blood?pressure?noted ?-?CV?-?RRR Edema ?-?EXT?-?No?edema Transplant?Status Topic Exploring?Alternative?Treatment?Options: Kidney?Transplant ?Person?Taught: ?-?Patient ?Additional?Education?Required:?No ?Date?Given:?07/02/2022 Interest?and?Eligibility?(If?changes?are?made,?Please?notify?SW?via?alert?below) ?Date?of?discussion?from?transplant?assessment:?07/09/2022 ?Patient?already?on?transplant?list??No ?Patient?interested?in?transplantation??Not?interested?-?medical?complication Tobacco?Cessation ??Tobacco?use:?Never?used Vilma,ROSSANA END OF DOCUMENT
--- OUTSIDE RECORDS SUMMARY | 2024-04-22 10:48 | XMS_ITS ---
Author Name Lyndsey, Luna Address [address] [place] [address] Phone [phone] Organization [facility], NA DOCUMENT DISCLAIMER Multiple document versions may exist, please be sure you review the latest version. The information in the [facility] Progress Note Document represents a providers documented clinical note containing certain health and medical information. It may not contain the complete medical history for the patient and should be independently verified. The represented time in the document is Eastern Time PROVIDER ROUNDING NOTE BASIC Patient:?CHRISTY?ARNOL,?1960,?62y,?M Dialysis?Location:?[facility] Attending?Scheduling Specialist:?Crystal?Baldemar Service?Date:?07/16/2023 Service?Provider:?Luna?Lyndsey,?PROFESSOR OF NURSING I?met?face?to?face?with?the?patient?today. OVERVIEW The?patient?presented?with?ESRD?on?dialysis Primary?cause?of?renal?failure:?Unspecified?complication?of?kidney?transplant Comments:?07/16/23?-?Stable?treatment. 06/16/23?-?It?was?reported?that?pts?nursing?home?current ly?has?bed?bugs.?Precautions?taken?at?dialysis.? 05/21/23?-?Stable?treatment?today. 05/17/23?-?Stable?treatment.?No?complaints.?Cath?running?well. 04/26/23?-?Stable?treatment 04/21/23?-?Stable?dialysis?treatment?with?no?complaints?or acute?issues.? 03/02/23?-?Stable?treatment. 02/04/23 Stable?HD.??UFG?appropriately?set. 01/30/2023 Stable?treatment.?No?complaints 01/19/23?-?Tunneled?catheter?was?exchanged,?running?better?no w?with?much?fewer?alarms.?Stable?treatment.? 12/22/22?-?Stable?treatment.?No?complaints.?Multiple?arterial&#160 ;alarms?at?beginning?of?treatment.?Catheter?required?several&#160 ;flushes?and?patient?was?repositioned.?Catheter?then?began?r unning?with?fewer?alarms?at?a?BPS?of?300,?green?amp?light.? 12/10/22?-?Stable?treatment.?Feeling?well. 11/17/22?-?Stable?treatment?with?no?complaints.? 10/13/22?-?scheduled?for?catheter?exchange?tomorrow?due?to poor?flows.? ?-?Carvedilol?stopped?for?reports?of?hypotension?and ?falls?at?nursing?home.?Pt?denies?any?recent?falls. 08/25/22-?Tolerating?HD?well?and?denies?any?new?complaints. 01/17/23-?Tolerating?HD?well?and?denies?any?new?complaints.&#1 60;Metabolic?and?volume?parameters?reviewed.?Education?provided?o n?low?phos?foods, reviewed?monthly?labs?and?UFG. No?changes?made?at?this?time.?Will?consider?adding?loke lma?if?phos?trend?changes?direction. 07/16/22-?Tolerating?HD?well.?Denies?any?concerns. 06/30/22?-?Stable?treatment. 06/18/22?-?RD?will?discuss?elevated?K?with?pts?nursing&# 160;home.?Stable?treatment?today. 06/11/22?-?Stable?treatment?with?no?acute?issues. 05/25/22?-?Stable?treatment,?no?complaints.??States?he? feels?good?on?his?non?dialysis?days. 05/18?Doing?well/?walking?outside/doing?better?with?diet 08/06/22 Blood?flow?on?on?catheter?350?,?has?a?yellow?light ?180?dialyzer.?Will?make?minor?adjustments?to?his?dialy sate?temp,?he?is?willing?to?stay?extra?time?to?achieve?adequacy.? 08/11/22 Increased?hid?time?to?4?hrs?and?he?has?a?green light?today.? Blood?pressure?stable.? Medications?and?labs?reviewed. LAST?HOSPITALIZATION Discharge?Diagnosis:?R03.1?Nonspecific?low?blood-pressure?reading Admission?Date?10/19/22 Discharge?Date?10/21/22 DIALYSIS?PRESCRIPTION ??IHD?3x?Week?Start?date:?06/11/23 ??Dialyzer:?180NRe?Optiflux ??BFR:?450 ??DFR:?Manual?800 ??Potassium:?2.0 ??Sodium:?137 ??EDW:?69.5 ??Duration:?4:00 ??Calcium:?2.5 ??Bicarb:?35 ??Rx?updated?on:?06/11/2023 TREATMENT?ASSESSMENT BP?Stand?Pre ??07/14/2023:?131/88 ??07/11/2023:?100/68 ??07/09/2023:?106/73 BP?Sit?Pre ??07/14/2023:?112/79 ??07/11/2023:?99/65 ??07/09/2023:?113/74 BP?Stand?Post ??07/14/2023:?119/84 ??07/11/2023:?123/80 ??07/09/2023:?105/70 BP?Sit?Post ??07/14/2023:?110/76 ??07/11/2023:?132/91 ??07/09/2023:?139/76 Tx?Duration ??07/14/2023:?4:00 ??07/11/2023:?4:03 ??07/09/2023:?4:11 Missed?Treatments 0?-?last?30?days 0?-?last?60?days FLUID?ASSESSMENT EDW?(kg) ??07/14/2023:?69.5 ??07/11/2023:?69.5 ??07/09/2023:?69.5 Weight?Pre?(kg) ??07/14/2023:?73.5 ??07/11/2023:?69.8 ??07/09/2023:?72.5 Weight?Post?(kg) ??07/14/2023:?68.9 ??07/11/2023:?68.8 ??07/09/2023:?69.1 PWV?(kg) ??07/14/2023:?-0.6 ??07/11/2023:?-0.7 ??07/09/2023:?-0.4 UF?Rate?(mL/kg/hr) ??07/14/2023:?16.7 ??07/11/2023:?3.6 ??07/09/2023:?11.8 ADEQUACY?ASSESSMENT spKt/V,?URR ??06/14/2023:?1.69,?75.0 ??05/17/2023:?1.56,?70.0 ??04/12/2023:?1.76,?77.0 ACCESS?ASSESSMENT ??Access?Type:?CVCatheter ??Access?SubType:?Tunneled ??Access?Status:?Active?(In?Use)?-?12/01/2021 ??Access?Location:?Chest ??Placed:?09/29/2021 ANEMIA?ASSESSMENT HGB ??07/14/2023:?11.2 ??07/07/2023:?10.6 ??06/28/2023:?10.7 ?? Ferritin ??06/14/2023:?927.0 ??05/17/2023:?747.0 ??04/12/2023:?840.0 Iron?Sucrose?(Venofer)?(mg) ??07/02/2023:?100 ??06/30/2023:?100 ??06/28/2023:?100 BMM?ASSESSMENT Phosphorus,?Calcium ??07/07/2023:?3.6,?8.1 ??06/28/2023:?2.9,?8.7 ??06/21/2023:?3.3,?8.6 ?? PTH,?Intact ??06/14/2023:?1063.0 ??05/17/2023:?545.0 ??04/12/2023:?513.0 Vitamin?D?(Calcitriol)?Oral?(mcg) ??07/14/2023:?0.25 ??07/11/2023:?0.25 ??07/09/2023:?0.25 NUTRITION?ASSESSMENT Potassium ??07/07/2023:?4.9 ??06/28/2023:?5.3 ??06/21/2023:?4.7 ?? eNPCR ??06/14/2023:?0.83 ??05/17/2023:?0.91 ??04/12/2023:?0.78 DIAGNOSIS Chief?Complaint:?N18.6?End?stage?renal?disease Patient?data?updated?07/16/2023?at?1:53?PM Signed?By:?Lyndsey,?Luna,?PROFESSOR OF NURSING??on?07/16/2023?1:54:28?PM END OF DOCUMENT
--- OUTSIDE RECORDS SUMMARY | 2024-04-22 10:48 | XMS_ITS ---
Author Name Lyndsey, Luna Address [address] [place] [id number] Phone [phone] Organization [facility], NA DOCUMENT DISCLAIMER Multiple document versions may exist, please be sure you review the latest version. The information in the [facility] Progress Note Document represents a providers documented clinical note containing certain health and medical information. It may not contain the complete medical history for the patient and should be independently verified. The represented time in the document is Eastern Time PROVIDER ROUNDING NOTE BASIC Patient:?CHRISTY?ARNOL,?1960,?62y,?M Dialysis?Location:?[facility] Attending?Welder Fitter Gas:?Crystal?Baldemar Service?Date:?07/23/2023 Service?Provider:?Luna?Lyndsey,?INFORMATION SYSTEMS PLANNER I?met?face?to?face?with?the?patient?today. OVERVIEW The?patient?presented?with?ESRD?on?dialysis Primary?cause?of?renal?failure:?Unspecified?complication?of?kidney?transplant Comments:?07/16/23?-?Stable?treatment. 06/16/23?-?It?was?reported?that?pts?nursing?home?current ly?has?bed?bugs.?Precautions?taken?at?dialysis.? [...] ??EDW:?69.5 ??Duration:?4:00 ??Calcium:?2.5 ??Bicarb:?35 ??Rx?updated?on:?06/11/2023 TREATMENT?ASSESSMENT BP?Stand?Pre ??07/21/2023:?103/71 ??07/19/2023:?112/78 ??07/16/2023:?93/68 BP?Sit?Pre ??07/21/2023:?102/71 ??07/19/2023:?112/62 ??07/16/2023:?111/76 BP?Stand?Post ??07/21/2023:?95/70 ??07/19/2023:?120/78 ??07/16/2023:?131/83 BP?Sit?Post ??07/21/2023:?116/81 ??07/19/2023:?111/79 ??07/16/2023:?131/82 Tx?Duration ??07/21/2023:?4:05 ??07/19/2023:?4:01 ??07/16/2023:?3:57 Missed?Treatments 0?-?last?30?days 0?-?last?60?days FLUID?ASSESSMENT EDW?(kg) ??07/21/2023:?69.5 ??07/19/2023:?69.5 ??07/16/2023:?69.5 Weight?Pre?(kg) ??07/21/2023:?72.3 ??07/19/2023:?74.3 ??07/16/2023:?70.5 Weight?Post?(kg) ??07/21/2023:?69.0 ??07/19/2023:?70.7 ??07/16/2023:?69.5 PWV?(kg) ??07/21/2023:?-0.5 ??07/19/2023:?1.2 ??07/16/2023:?0.0 UF?Rate?(mL/kg/hr) ??07/21/2023:?11.7 ??07/19/2023:?12.7 ??07/16/2023:?3.6 ADEQUACY?ASSESSMENT spKt/V,?URR ??07/14/2023:?1.92,?78.0 ??06/14/2023:?1.69,?75.0 ??05/17/2023:?1.56,?70.0 ACCESS?ASSESSMENT ??Access?Type:?CVCatheter ??Access?SubType:?Tunneled ??Access?Status:?Active?(In?Use)?-?12/01/2021 ??Access?Location:?Chest ??Placed:?09/29/2021 ANEMIA?ASSESSMENT HGB,?TSAT ??07/19/2023:?11.4,?- ??07/14/2023:?11.2,?31.0 ??07/07/2023:?10.6,?- ?? Ferritin ??07/14/2023:?993.0 ??06/14/2023:?927.0 ??05/17/2023:?747.0 Iron?Sucrose?(Venofer)?(mg) ??07/02/2023:?100 ??06/30/2023:?100 ??06/28/2023:?100 BMM?ASSESSMENT Phosphorus,?Calcium ??07/19/2023:?3.8,?8.8 ??07/14/2023:?4.0,?8.7 ??07/07/2023:?3.6,?8.1 ?? PTH,?Intact ??07/14/2023:?892.0 ??06/14/2023:?1063.0 ??05/17/2023:?545.0 Vitamin?D?(Calcitriol)?Oral?(mcg) ??07/21/2023:?0.25 ??07/19/2023:?0.25 ??07/16/2023:?0.25 NUTRITION?ASSESSMENT Albumin,?Potassium ??07/19/2023:?-,?5.0 ??07/14/2023:?4.4,?4.7 ??07/07/2023:?-,?4.9 ?? eNPCR ??07/14/2023:?1.19 ??06/14/2023:?0.83 ??05/17/2023:?0.91 DIAGNOSIS Chief?Complaint:?N18.6?End?stage?renal?disease Patient?data?updated?07/23/2023?at?12:52?PM Signed?By:?Lyndsey,?Luna,?INFORMATION SYSTEMS PLANNER??on?07/23/2023?12:52:16 PM END OF DOCUMENT
--- OUTSIDE RECORDS SUMMARY | 2024-04-22 10:48 | XMS_ITS ---
Author Name Lyndsey, Luna Address [address] [place] [id number] Phone [phone] Organization [facility], NA [...] Eastern Time PROVIDER ROUNDING NOTE BASIC Patient:?CHRISTY?ARNOL,?1960,?63y,?M Dialysis?Location:?[facility] Attending?Cold Roll Packer Sheet Iron:?Crystal?Baldemar Service?Date:?09/03/2023 Service?Provider:?Luna?Lyndsey,?TEACHER THEATER ARTS I?met?face?to?face?with?the?patient?today. OVERVIEW The?patient?presented?with?ESRD?on?dialysis Primary?cause?of?renal?failure:?Unspecified?complication?of?kidney?transplant Comments:?08/25/23?-?Stable?treatment. 08/20/23?-?Stable?dialysis?treatment?with?no?acute?issues. 07/16/23?-?Stable?treatment. 06/16/23?-?It?was?reported?that?pts?nursing?home?current ly?has?bed?bugs.?Precautions?taken?at?dialysis.? 05/21/23?-?Stable?treatment?today. 05/17/23?-?Stable?treatment.?No?complaints.?Cath?running?well. 04/26/23?-?Stable?treatment [...] ??EDW:?69.5 ??Duration:?3:45 ??Calcium:?2.5 ??Bicarb:?35 ??Rx?updated?on:?08/11/2023 TREATMENT?ASSESSMENT BP?Stand?Pre ??09/01/2023:?105/76 ??08/30/2023:?120/86 ??08/27/2023:?86/58 BP?Sit?Pre ??09/01/2023:?105/76 ??08/30/2023:?124/72 ??08/27/2023:?92/41 BP?Stand?Post ??09/01/2023:?117/92 ??08/30/2023:?102/73 ??08/27/2023:?111/81 BP?Sit?Post ??09/01/2023:?107/73 ??08/30/2023:?119/78 ??08/27/2023:?106/79 Tx?Duration ??09/01/2023:?3:52 ??08/30/2023:?3:50 ??08/27/2023:?3:46 Missed?Treatments 0?-?last?30?days 0?-?last?60?days FLUID?ASSESSMENT EDW?(kg) ??09/01/2023:?69.5 ??08/30/2023:?69.5 ??08/27/2023:?69.5 Weight?Pre?(kg) ??09/01/2023:?73.1 ??08/30/2023:?72.3 ??08/27/2023:?71.8 Weight?Post?(kg) ??09/01/2023:?70.2 ??08/30/2023:?69.4 ??08/27/2023:?69.6 PWV?(kg) ??09/01/2023:?0.7 ??08/30/2023:?-0.1 ??08/27/2023:?0.1 UF?Rate?(mL/kg/hr) ??09/01/2023:?10.7 ??08/30/2023:?10.9 ??08/27/2023:?8.4 ADEQUACY?ASSESSMENT spKt/V,?URR ??08/16/2023:?1.83,?79.0 ??07/14/2023:?1.92,?78.0 ??06/14/2023:?1.69,?75.0 ACCESS?ASSESSMENT ??Access?Type:?CVCatheter ??Access?SubType:?Tunneled ??Access?Status:?Active?(In?Use)?-?12/01/2021 ??Access?Location:?Chest ??Placed:?09/29/2021 ANEMIA?ASSESSMENT HGB,?TSAT ??08/30/2023:?13.5,?- ??08/23/2023:?12.7,?- ??08/16/2023:?12.1,?31.0 ?? Ferritin ??08/16/2023:?1123.0 ??07/14/2023:?993.0 ??06/14/2023:?927.0 Iron?Sucrose?(Venofer)?(mg) ??07/02/2023:?100 ??06/30/2023:?100 ??06/28/2023:?100 BMM?ASSESSMENT Phosphorus,?Calcium ??08/30/2023:?4.6,?9.2 ??08/23/2023:?4.2,?9.0 ??08/16/2023:?4.1,?9.2 ?? PTH,?Intact ??08/16/2023:?882.0 ??07/14/2023:?892.0 ??06/14/2023:?1063.0 Vitamin?D?(Calcitriol)?Oral?(mcg) ??09/01/2023:?0.50 ??08/30/2023:?0.50 ??08/27/2023:?0.50 NUTRITION?ASSESSMENT Albumin,?Potassium ??08/30/2023:?-,?5.4 ??08/23/2023:?-,?5.5 ??08/16/2023:?4.5,?5.6 ?? eNPCR ??08/16/2023:?1.01 ??07/14/2023:?1.19 ??06/14/2023:?0.83 DIAGNOSIS Chief?Complaint:?N18.6?End?stage?renal?disease Patient?data?updated?09/03/2023?at?12:53?PM Signed?By:?Lyndsey,?Luna,?TEACHER THEATER ARTS??on?09/03/2023?12:53:41 PM END OF DOCUMENT
--- OUTSIDE RECORDS SUMMARY | 2024-04-22 10:48 | XMS_ITS ---
Author Name Crystal Mcdermott Address [address] [place] [address] Phone [phone] Organization [facility], NA DOCUMENT DISCLAIMER Multiple document versions may exist, please be sure you review the latest version. The information in the [facility] Progress Note Document represents a providers documented clinical note containing certain health and medical information. It may not contain the complete medical history for the patient and should be independently verified. The represented time in the document is Eastern Time PROVIDER ROUNDING NOTE COMP HD PROVIDER?ROUNDING?NOTE?COMP?HD Clinic:?[address] [place] [address] Visit?date:?05/28/2022?00:00?Modality/setting:?IHD CHRISTY?ARNOL?-?Chart?#:?[id number] Method?of?Interaction:?Face?to?face Date?of?Interaction:?12/03/2023 ?-?Patient?is?stable ?-?Medications?and?labs?reviewed. Patient?issues?include: 09/20/2023?-?Recently?had?a?seizure. Prior?Treatment:?12/01/2023? Dialyzer:?180NRe?Optiflux? Dialysate:?2.0?K,?2.5 Ca,?1.0?Mg,?100?Dextrose?(G2251)? Prescribed?Time:?3:45?Avg?BFR:?400?Wt?Gain (kg):?1.40? Actual?Time:?03:50?Avg?DFR:?800?&#16 0;EDW?(kg):?71.00? Volume?Management?Comments: 06/02/2023?-?Euvolemic.??At/below?target?weight.??Decreased EDW?to?70.??? 07/28/2023?-?Euvolemic.??EDW?recently?decreased?based?on&#16 0;post-rx?weights.??No change.?09/01/2023?-?Euvolemic.??Achieving?target weight.??No?change.??? 09/20/2023?-?High?gains?last?2?treatments;?not?usually?the?case.??Euvolemic.? Achieving?target?weight.?10/29/2023?-?Continues?to?have?high?gains.??Not achieving?target?weight.??EDW?changed?to?70;?will?try&# 160;to?gently?challenge.??? 12/03/2023?-?Euvolemic.??Achieving?target?weight.??No?change. Adequacy ?spKt/V?eKdrt/V?&#160 ; ???OLC?(Del)?spKtv?URR?%?1.57?11/15/23?? ?1.35?11/15/23?? ?1.72?0 12/01/23?? ?72?11/15/23? ?1.61?10/11/23?? ?1.39?10/11/23?? ?1.66?0 11/29/23?? ?74?10/11/23? ?1.91?09/15/23?? ?1.71?09/15/23?? ?1.65?0 11/26/23?? ?79?09/15/23? ?Potassium,?Serum?mEq/L?Bicarbonate?mEq/L??&# 160;?Creatinine?mg/dL?5.6?11/29/23? 22?11/15/23?11 .40?08/26/20?5.5?11/22/23? 24?10/11/23?&# 160;?-?5.8?11/15/23? 22?09/15/23?&# 160;?-?-?Adequacy?parameters?reviewed Adequacy ?-?Adequacy?target?met ?Sitting?BP?Pre?Sitting BP?Post?Systolic/Diastolic?Systolic/Diastolic?84?/?33??12/01/23?131?/?64 ?12/01/23?141?/?84??11/29/23?144?/?79??11/29/23?108?/?75??11/26/23?111?/?72??11/26/23?? Blood?Pressure ?-?Blood?pressure?controlled Fluid?Status ?-?Fluid?status?acceptable Interdialytic?Weight?Gain ?-?Interdialytic?weight?gain?acceptable Prescription?Compliance ?-?Prescription?compliance?acceptable 07/28/2023?-?On?Lokelma.?10/29/2023?-?BP?not&#1 60;always?well?controlled.??Will try?to?gently?challenge?weight,?revisit?fluid?restriction,?and?see?if?that?will bring?the?BP?into?range.?12/03/2023?-?K+?slightly?high.??On?2K?bath?and Lokelma.??Will?continue?to?monitor. Anemia ?HGB?g/dL? Transferrin?Sat.?(Calc)?%?Ferritin?ng/mL&#160 ;?11.6?11/29/23?35?11/15/23?816 ?11/15/23?? ?11.5?11/22/23?25?10/11/23?1132 ?10/11/23?? ?11.6?11/15/23?26?09/15/23?1341 ?09/15/23?? CRISTY?Administrations ??0?mcg?Mircera?07/25/22 ??0?mcg?Mircera?07/11/22 ??0?mcg?Mircera?06/27/22 IV?Iron?Administrations ??0?mg?Venofer?11/26/23 ??100?mg?Venofer?07/02/23 ??100?mg?Venofer?06/30/23 ?-?Anemia?reviewed Bone?and?Mineral?Metabolism ??Calcium,?Total?mg/dL?? Calcium,?Corrected?mg/dL ?&#1 60;??Phosphorous?mg/dL??? PTH-Intact,?Plasma?pg/mL ??9.1?11/29/23? 8.5?11/15/23?5.1&#16 0;?11/29/23?703?11/15/23?8.6?11/22/23? 9.0?10/11/23?5.2&#16 0;?11/22/23?439?10/11/23?8.7?11/15/23? 9.0?09/15/23?4.8&#16 0;?11/15/23?1035?09/20/23?Vitamin?D?25?Hydroxy?ng/mL? ?Vitamin?D?Analogue? Administrations?Calcimimetics?46.0?09/15/23?0.75?mcg?Vitamin?D??12/01/23??& #160;?-?56.5?06/14/23?0.75?mcg?Vitamin?D??11/29/23??& #160;?-?64.2?04/12/23?0.75?mcg?Vitamin?D??11/26/23??& #160;?-? PTH ?-?PTH?within?target ?-?Bone?and?mineral?metabolism?parameters?reviewed ?-?Calcium?controlled ?-?Phosphorus?controlled ?-?Vitamin?D?analogue?adjusted 07/28/2023?-?PTH?still?above?target.??Will?increase?calcitriol?to?0.5mcg?qrx.??? 09/01/2023?-?PTH?stable?but?still?above?target.??Will&# 160;increase?calcitriol?to 0.75mcg?qrx,?keeping?a?close?eye?on?calcium.???&#1 60;12/03/2023?-?PTH?within?target, but?significantly?increased?since?last?month.??Will?change&# 160;calcitriol?to?1mcg? on?Mondays?and?continue?0.75mcg?on?Wed.?and?Fri. Nutrition ?Albumin?g/dL? eNPCR?g/kg/day?4.2?11/15/23?? ?0.83?11/15/23?? ?4.2?10/11/23?? ?0.87?10/11/23?? ?4.1?09/15/23?? ?0.83?09/15/23?? ?-?Nutrition?reviewed Home?Medications ?acetaminophen?(acetaminophen) 500?mg,?oral,?2?tablet?three?times?a?day ??allopurinol?(allopurinol) 100?mg,?oral,?1?tablet?once?a?day ??Mt?Low?Dose?Aspirin?(aspirin) 81?mg,?oral,?1?tablet?once?a?day ??benzonatate?(benzonatate) 100?mg,?oral,?1??as?directed ??levetiracetam?(levetiracetam) 250?mg,?oral,?1?tablet?three?times?a?week [POST?Dialysis] ??levetiracetam?(levetiracetam) 500?mg,?oral,?1?tablet?twice?a?day ??levothyroxine?(levothyroxine) 100?mcg,?oral,?1?tablet?once?a?day ??Mucinex?(guaifenesin) 600?mg,?oral,?1?tablet?every?twelve?hours ??pantoprazole?(pantoprazole) 20?mg,?oral,?1?tablet?once?a?day ??Tania-Madiha?(b?complex-vitamin?c-folic?acid) 0.8?mg,?oral,?1?tablet?once?a?day ??tacrolimus?(tacrolimus) 1?mg,?oral,?1?capsule?twice?a?day ??Veltassa?(patiromer?calcium?sorbitex) 25.2?gram,?oral,?1?packet?once?a?day [take?4?times?a?wk?on?non?dialysis?days,?as?needed?to?reach?desired?K+target.] Vascular?Access?-?Active/Maturing ?Type?Position/Location?Status?Access?ID?CVCatheter-Tunneled?Chest?Active?(In?Use)?[id number]?-?-?&# 160;?-? -?-?-?&# 160;?-? -? Access?Flows ??1391mL?per?min?10/22/21 ??1256mL?per?min?08/29/21 ??1559mL?per?min?08/27/21 ?-?Vascular?access?reviewed 05/28/2022?-?PERMANENT?TDC.?? Exam ?-?Vital?signs?reviewed Pulmonary ?-?LUNGS?-?clear Cardiovascular ?-?CV?-?Blood?pressure?noted ?-?CV?-?RRR Edema ?-?EXT?-?No?edema Transplant?Status Topic Exploring?Alternative?Treatment?Options: Kidney?Transplant ?Person?Taught: ?-?Patient ?Additional?Education?Required:?No ?Date?Given:?07/02/2022 Interest?and?Eligibility?(If?changes?are?made,?Please?notify?SW?via?alert?below) ?Date?of?discussion?from?transplant?assessment:?09/08/2023 ?Patient?already?on?transplant?list??No Tobacco?Cessation ??Tobacco?use:?Never?used Crystal?Baldemar,? END OF DOCUMENT
--- OUTSIDE RECORDS SUMMARY | 2024-04-22 10:49 | XMS_ITS ---
Author Name Heath Soloriocy Address [address] [place] [id number] Phone [phone] Organization [facility] e, NA DOCUMENT DISCLAIMER Multiple document versions may exist, please be sure you review the latest version. The information in the [facility] Progress Note Document represents a providers documented clinical note containing certain health and medical information. It may not contain the complete medical history for the patient and should be independently verified. The represented time in the document is Eastern Time PROVIDER ROUNDING NOTE BASIC Patient:?CHRISTY?ARNOL,?1960,?63y,?M Dialysis?Location:?[place] Attending?[employer]:?Crystal?Baldemar Service?Date:?01/03/2024 Service?Provider:?Luna?Lyndsey,?MERCURY RECOVERER I?met?face?to?face?with?the?patient?today. OVERVIEW The?patient?presented?with?ESRD?on?dialysis Primary?cause?of?renal?failure:?Unspecified?complication?of?kidney?transplant Comments:?12/27/23?-?Stable?treatment. 11/10/23?-?Stable?treatment?with?no?acute?issues.?States? he?is?feeling?well?on?non?dialysis?days. 10/11/23?-?Stable?treatment.?No?acute?issues. 09/15/23?-?Recent?admission?for?confusion?and???seizure?a ctivity.?Pts?mental?status?back?at?baseline?today.?No?f urther?seizure?activity?reported.?Stable?dialysis.?No?complaints.? 08/25/23?-?Stable?treatment. [...] ??EDW:?71 ??Duration:?3:45 ??Calcium:?2.5 ??Bicarb:?35 ??Rx?updated?on:?12/25/2023 TREATMENT?ASSESSMENT BP?Stand?Pre ??12/31/2023:?93/47 ??12/29/2023:?120/58 ??12/27/2023:?98/65 BP?Sit?Pre ??12/31/2023:?109/51 ??12/29/2023:?106/55 ??12/27/2023:?103/67 BP?Stand?Post ??12/31/2023:?149/71 ??12/29/2023:?135/80 ??12/27/2023:?103/57 BP?Sit?Post ??12/31/2023:?140/75 ??12/29/2023:?135/60 ??12/27/2023:?106/64 Tx?Duration ??12/31/2023:?3:47 ??12/29/2023:?3:50 ??12/27/2023:?3:51 Missed?Treatments 0?-?last?30?days 0?-?last?60?days FLUID?ASSESSMENT EDW?(kg) ??12/31/2023:?71.0 ??12/29/2023:?71.0 ??12/27/2023:?71.0 Weight?Pre?(kg) ??12/31/2023:?72.7 ??12/29/2023:?72.4 ??12/27/2023:?73.3 Weight?Post?(kg) ??12/31/2023:?70.9 ??12/29/2023:?71.0 ??12/27/2023:?70.8 PWV?(kg) ??12/31/2023:?-0.1 ??12/29/2023:?0.0 ??12/27/2023:?-0.2 UF?Rate?(mL/kg/hr) ??12/31/2023:?6.7 ??12/29/2023:?5.1 ??12/27/2023:?9.2 ADEQUACY?ASSESSMENT spKt/V,?URR ??12/13/2023:?1.55,?72.0 ??11/15/2023:?1.57,?72.0 ??10/11/2023:?1.61,?74.0 ACCESS?ASSESSMENT ??Access?Type:?CVCatheter ??Access?SubType:?Tunneled ??Access?Status:?Active?(In?Use)?-?12/01/2021 ??Access?Location:?Chest ??Placed:?09/29/2021 ANEMIA?ASSESSMENT HGB,?TSAT ??12/27/2023:?12.8,?- ??12/20/2023:?12.4,?- ??12/13/2023:?12.2,?33.0 ?? Ferritin ??12/13/2023:?663.0 ??11/15/2023:?816.0 ??10/11/2023:?1132.0 BMM?ASSESSMENT PTH,?Intact ??12/13/2023:?601.0 ??11/15/2023:?703.0 ??10/11/2023:?439.0 ?? Calcium,?Phosphorus ??12/27/2023:?8.5,?5.7 ??12/20/2023:?8.9,?5.9 ??12/13/2023:?8.9,?4.8 Vitamin?D?(Calcitriol)?Oral?(mcg) ??12/31/2023:?0.75 ??12/29/2023:?0.75 ??12/27/2023:?1.0 NUTRITION?ASSESSMENT Potassium,?Albumin ??12/27/2023:?4.9,?- ??12/20/2023:?5.2,?- ??12/13/2023:?5.7,?4.3 ?? eNPCR ??12/13/2023:?1.12 ??11/15/2023:?0.83 ??10/11/2023:?0.87 DIAGNOSIS Chief?Complaint:?N18.6?End?stage?renal?disease Patient?data?updated?01/03/2024?at?11:31?AM Signed?By:?Lyndsey,?Luna,?MERCURY RECOVERER??on?01/03/2024?11:31:52 AM END OF DOCUMENT
--- OUTSIDE RECORDS SUMMARY | 2024-04-22 10:49 | XMS_ITS ---
Author Name Crystal Mcdermott Address [address] [place] [address] Phone [phone] Organization [facility] e, NA DOCUMENT DISCLAIMER Multiple document versions may exist, please be sure you review the latest version. The information in the [facility] Progress Note Document represents a providers documented clinical note containing certain health and medical information. It may not contain the complete medical history for the patient and should be independently verified. The represented time in the document is Eastern Time PROVIDER ROUNDING NOTE BASIC HD PROVIDER?ROUNDING?NOTE?BASIC?HD Clinic:?[address] [place] [address] Visit?date:?05/28/2022?00:00?Modality/setting:?IHD CHRISTY?ARNOL?-?Chart?#:?[id number] Method?of?Interaction:?Face?to?face Date?of?Interaction:?10/27/2023 ?-?Patient?is?stable Patient?issues?include: 08/18/2022?-?Will?decrease?EDW?to?74?based?on?recent post-rx?weights. Prior?Treatment:?10/25/2023? Dialyzer:?180NRe?Optiflux? Dialysate:?2.0?K,?2.5 Ca,?1.0?Mg,?100?Dextrose?(G2251)? Prescribed?Time:?3:45? Actual?Time:?03:47? Avg?BFR:?380? Avg?DFR:?590? Wt?Gain?(kg):?5.20? EDW?(kg):?69.50? Home?Medications ?acetaminophen?(acetaminophen) 500?mg,?oral,?2?tablet?three?times?a?day ??allopurinol?(allopurinol) 100?mg,?oral,?1?tablet?once?a?day ??Mt?Low?Dose?Aspirin?(aspirin) 81?mg,?oral,?1?tablet?once?a?day ??benzonatate?(benzonatate) 100?mg,?oral,?1??as?directed ??levetiracetam?(levetiracetam) 250?mg,?oral,?1?tablet?three?times?a?week [POST?Dialysis] ??levetiracetam?(levetiracetam) 500?mg,?oral,?1?tablet?twice?a?day ??levothyroxine?(levothyroxine) 100?mcg,?oral,?1?tablet?once?a?day ??Mucinex?(guaifenesin) 600?mg,?oral,?1?tablet?every?twelve?hours ??pantoprazole?(pantoprazole) 20?mg,?oral,?1?tablet?once?a?day ??Tania-Madiha?(b?complex-vitamin?c-folic?acid) 0.8?mg,?oral,?1?tablet?once?a?day ??tacrolimus?(tacrolimus) 1?mg,?oral,?1?capsule?twice?a?day ??Veltassa?(patiromer?calcium?sorbitex) 25.2?gram,?oral,?1?packet?once?a?day [take?4?times?a?wk?on?non?dialysis?days,?as?needed?to?reach?desired?K+target.] Crystal?Baldemar,? END OF DOCUMENT
--- OUTSIDE RECORDS SUMMARY | 2024-04-22 10:49 | XMS_ITS ---
Author Name Heath Soloriocy Address [address] [place] [address] Phone [phone] Organization [facility] [...] Eastern Time PROVIDER ROUNDING NOTE BASIC Patient:?CHRISTY?ARNOL,?1960,?63y,?M Dialysis?Location:?[place] Attending?Leadite Worker:?Crystal?Baldemar Service?Date:?11/26/2023 Service?Provider:?Luna?Lyndsey,?MAGNETIC RESONANCE IMAGING DIRECTOR I?met?face?to?face?with?the?patient?today. OVERVIEW The?patient?presented?with?ESRD?on?dialysis Primary?cause?of?renal?failure:?Unspecified?complication?of?kidney?transplant Comments:?11/10/23?-?Stable?treatment?with?no?acute?issues.&#1 60;States?he?is?feeling?well?on?non?dialysis?days. 10/11/23?-?Stable?treatment.?No?acute?issues. 09/15/23?-?Recent?admission?for?confusion?and???seizure?a ctivity.?Pts?mental?status?back?at?baseline?today.?No?f urther?seizure?activity?reported.?Stable?dialysis.?No?complaints.? 08/25/23?-?Stable?treatment. 08/20/23?-?Stable?dialysis?treatment?with?no?acute?issues. 07/16/23?-?Stable?treatment. 06/16/23?-?It?was?reported?that?pts?nursing?home?current ly?has?bed?bugs.?Precautions?taken?at?dialysis.? 05/21/23?-?Stable?treatment?today. 05/17/23?-?Stable?treatment.?No?complaints.?Cath?running?well. 04/26/23?-?Stable?treatment 04/21/23?-?Stable?dialysis?treatment?with?no?complaints?or acute?issues.? 03/02/23?-?Stable?treatment. 02/04/23 Stable?HD.??UFG?appropriately?set. 01/30/2023 Stable?treatment.?No?complaints 01/19/23?-?Tunneled?catheter?was?exchanged,?running?better?no w?with?much?fewer?alarms.?Stable?treatment.? 12/22/22?-?Stable?treatment.?No?complaints.?Multiple?arterial&#160 ;alarms?at?beginning?of?treatment.?Catheter?required?several&#160 ;flushes?and?patient?was?repositioned.?Catheter?then?began?r unning?with?fewer?alarms?at?a?BPS?of?300,?green?amp?light.? 12/10/22?-?Stable?treatment.?Feeling?well. 11/17/22?-?Stable?treatment?with?no?complaints.? 10/13/22?-?scheduled?for?catheter?exchange?tomorrow?due?to poor?flows.? ?-?Carvedilol?stopped?for?reports?of?hypotension?and ?falls?at?nursing?home.?Pt?denies?any?recent?falls. 08/25/22-?Tolerating?HD?well?and?denies?any?new?complaints. 01/17/23-?Tolerating?HD?well?and?denies?any?new?complaints.&#1 60;Metabolic?and?volume?parameters?reviewed.?Education?provided?o n?low?phos?foods, reviewed?monthly?labs?and?UFG. No?changes?made?at?this?time.?Will?consider?adding?loke lma?if?phos?trend?changes?direction. 07/16/22-?Tolerating?HD?well.?Denies?any?concerns. 06/30/22?-?Stable?treatment. 06/18/22?-?RD?will?discuss?elevated?K?with?pts?nursing&# 160;home.?Stable?treatment?today. 06/11/22?-?Stable?treatment?with?no?acute?issues. 05/25/22?-?Stable?treatment,?no?complaints.??States?he? feels?good?on?his?non?dialysis?days. 05/18?Doing?well/?walking?outside/doing?better?with?diet 08/06/22 Blood?flow?on?on?catheter?350?,?has?a?yellow?light ?180?dialyzer.?Will?make?minor?adjustments?to?his?dialy sate?temp,?he?is?willing?to?stay?extra?time?to?achieve?adequacy.? 08/11/22 Increased?hid?time?to?4?hrs?and?he?has?a?green light?today.? Blood?pressure?stable.? Medications?and?labs?reviewed. LAST?HOSPITALIZATION Discharge?Diagnosis:?G40.89?Other?seizures Admission?Date?09/10/23 Discharge?Date?09/14/23 DIALYSIS?PRESCRIPTION ??IHD?3x?Week?Start?date:?11/08/23 ??Dialyzer:?180NRe?Optiflux ??BFR:?450 ??DFR:?Manual?800 ??Potassium:?2.0 ??Sodium:?137 ??EDW:?71 ??Duration:?3:45 ??Calcium:?2.5 ??Bicarb:?35 ??Rx?updated?on:?11/08/2023 TREATMENT?ASSESSMENT BP?Stand?Pre ??11/24/2023:?151/87 ??11/22/2023:?116/78 ??11/19/2023:?98/67 BP?Sit?Pre ??11/24/2023:?128/67 ??11/22/2023:?120/76 ??11/19/2023:?112/67 BP?Stand?Post ??11/24/2023:?154/83 ??11/22/2023:?122/71 ??11/19/2023:?110/73 BP?Sit?Post ??11/24/2023:?145/77 ??11/22/2023:?127/76 ??11/19/2023:?133/70 Tx?Duration ??11/24/2023:?3:58 ??11/22/2023:?3:55 ??11/19/2023:?3:54 Missed?Treatments 0?-?last?30?days 0?-?last?60?days FLUID?ASSESSMENT EDW?(kg) ??11/24/2023:?71.0 ??11/22/2023:?71.0 ??11/19/2023:?71.0 Weight?Pre?(kg) ??11/24/2023:?77.4 ??11/22/2023:?77.2 ??11/19/2023:?75.5 Weight?Post?(kg) ??11/24/2023:?74.1 ??11/22/2023:?73.7 ??11/19/2023:?72.2 PWV?(kg) ??11/24/2023:?3.1 ??11/22/2023:?2.7 ??11/19/2023:?1.2 UF?Rate?(mL/kg/hr) ??11/24/2023:?11.2 ??11/22/2023:?12.1 ??11/19/2023:?11.7 ADEQUACY?ASSESSMENT spKt/V,?URR ??11/15/2023:?1.57,?72.0 ??10/11/2023:?1.61,?74.0 ??09/15/2023:?1.91,?79.0 ACCESS?ASSESSMENT ??Access?Type:?CVCatheter ??Access?SubType:?Tunneled ??Access?Status:?Active?(In?Use)?-?12/01/2021 ??Access?Location:?Chest ??Placed:?09/29/2021 ANEMIA?ASSESSMENT HGB,?TSAT ??11/22/2023:?11.5,?- ??11/15/2023:?11.6,?35.0 ??11/08/2023:?11.1,?- ?? Ferritin ??11/15/2023:?816.0 ??10/11/2023:?1132.0 ??09/15/2023:?1341.0 Active?Orders:?Iron?Sucrose?(Venofer)?50?mg?1X?Week?During?Dialysis. BMM?ASSESSMENT PTH,?Intact ??11/15/2023:?703.0 ??10/11/2023:?439.0 ??09/20/2023:?1035.0 ?? Calcium,?Phosphorus ??11/22/2023:?8.6,?5.2 ??11/15/2023:?8.7,?4.8 ??11/08/2023:?8.7,?4.7 Vitamin?D?(Calcitriol)?Oral?(mcg) ??11/24/2023:?0.75 ??11/22/2023:?0.75 ??11/19/2023:?0.75 NUTRITION?ASSESSMENT Potassium,?Albumin ??11/22/2023:?5.5,?- ??11/15/2023:?5.8,?4.2 ??11/08/2023:?5.5,?- ?? eNPCR ??11/15/2023:?0.83 ??10/11/2023:?0.87 ??09/15/2023:?0.83 DIAGNOSIS Chief?Complaint:?N18.6?End?stage?renal?disease Patient?data?updated?11/26/2023?at?12:10?PM Signed?By:?Lyndsey,?uLna,?MAGNETIC RESONANCE IMAGING DIRECTOR??on?11/26/2023?12:10:58 PM END OF DOCUMENT
--- OUTSIDE RECORDS SUMMARY | 2024-04-22 10:49 | XMS_ITS ---
Author Name Lyndsey, Luna Address [address] [place] [id number] Phone [phone] Organization [facility], NA DOCUMENT DISCLAIMER Multiple document versions may exist, please be sure you review the latest version. The information in the [facility] Progress Note Document represents a providers documented clinical note containing certain health and medical information. It may not contain the complete medical history for the patient and should be independently verified. The represented time in the document is Eastern Time PROVIDER ROUNDING NOTE BASIC Patient:?CHRITSY?ARNLO,?1960,?62y,?M Dialysis?Location:?[place] Attending?Multi Disciplined Language Analyst:?Crystal?Baldemar Service?Date:?08/02/2023 Service?Provider:?Luna?Lyndsey,?BAG PRESSER I?met?face?to?face?with?the?patient?today. OVERVIEW The?patient?presented?with?ESRD?on?dialysis Primary?cause?of?renal?failure:?Unspecified?complication?of?kidney?transplant Comments:?07/16/23?-?Stable?treatment. 06/16/23?-?It?was?reported?that?pts?nursing?home?current ly?has?bed?bugs.?Precautions?taken?at?dialysis.? [...] ??EDW:?69.5 ??Duration:?4:00 ??Calcium:?2.5 ??Bicarb:?35 ??Rx?updated?on:?06/11/2023 TREATMENT?ASSESSMENT BP?Stand?Pre ??07/30/2023:?102/71 ??07/28/2023:?107/89 ??07/26/2023:?91/64 BP?Sit?Pre ??07/30/2023:?102/68 ??07/28/2023:?102/74 ??07/26/2023:?116/66 BP?Stand?Post ??07/30/2023:?103/73 ??07/28/2023:?119/82 ??07/26/2023:?109/77 BP?Sit?Post ??07/30/2023:?113/77 ??07/28/2023:?117/88 ??07/26/2023:?110/71 Tx?Duration ??07/30/2023:?4:03 ??07/28/2023:?4:02 ??07/26/2023:?4:01 Missed?Treatments 0?-?last?30?days 0?-?last?60?days FLUID?ASSESSMENT EDW?(kg) ??07/30/2023:?69.5 ??07/28/2023:?69.5 ??07/26/2023:?69.5 Weight?Pre?(kg) ??07/30/2023:?71.3 ??07/28/2023:?70.4 ??07/26/2023:?71.8 Weight?Post?(kg) ??07/30/2023:?69.9 ??07/28/2023:?69.4 ??07/26/2023:?69.0 PWV?(kg) ??07/30/2023:?0.4 ??07/28/2023:?-0.1 ??07/26/2023:?-0.5 UF?Rate?(mL/kg/hr) ??07/30/2023:?4.9 ??07/28/2023:?3.6 ??07/26/2023:?10.1 ADEQUACY?ASSESSMENT spKt/V,?URR ??07/14/2023:?1.92,?78.0 ??06/14/2023:?1.69,?75.0 ??05/17/2023:?1.56,?70.0 ACCESS?ASSESSMENT ??Access?Type:?CVCatheter ??Access?SubType:?Tunneled ??Access?Status:?Active?(In?Use)?-?12/01/2021 ??Access?Location:?Chest ??Placed:?09/29/2021 ANEMIA?ASSESSMENT HGB,?TSAT ??07/26/2023:?11.5,?- ??07/19/2023:?11.4,?- ??07/14/2023:?11.2,?31.0 ?? Ferritin ??07/14/2023:?993.0 ??06/14/2023:?927.0 ??05/17/2023:?747.0 Iron?Sucrose?(Venofer)?(mg) ??07/02/2023:?100 ??06/30/2023:?100 ??06/28/2023:?100 BMM?ASSESSMENT Phosphorus,?Calcium ??07/26/2023:?4.8,?8.4 ??07/19/2023:?3.8,?8.8 ??07/14/2023:?4.0,?8.7 ?? PTH,?Intact ??07/14/2023:?892.0 ??06/14/2023:?1063.0 ??05/17/2023:?545.0 Vitamin?D?(Calcitriol)?Oral?(mcg) ??07/30/2023:?0.25 ??07/28/2023:?0.25 ??07/26/2023:?0.25 NUTRITION?ASSESSMENT Albumin,?Potassium ??07/26/2023:?-,?5.1 ??07/19/2023:?-,?5.0 ??07/14/2023:?4.4,?4.7 ?? eNPCR ??07/14/2023:?1.19 ??06/14/2023:?0.83 ??05/17/2023:?0.91 DIAGNOSIS Chief?Complaint:?N18.6?End?stage?renal?disease Patient?data?updated?08/02/2023?at?2:35?PM Signed?By:?Lyndsey,?Luna,?BAG PRESSER??on?08/02/2023?2:35:06?PM END OF DOCUMENT
--- OUTSIDE RECORDS SUMMARY | 2024-04-22 10:49 | XMS_ITS ---
Author Name Heath Soloriocy Address [address] [place] [id number] Phone [phone] Organization [facility], NA DOCUMENT DISCLAIMER Multiple document versions may exist, please be sure you review the latest version. The information in the [facility] Progress Note Document represents a providers documented clinical note containing certain health and medical information. It may not contain the complete medical history for the patient and should be independently verified. The represented time in the document is Eastern Time PROVIDER ROUNDING NOTE BASIC Patient:?CHRISTY?ARNOL,?1960,?63y,?M Dialysis?Location:?[place] Attending?Senior Windows Systems Engineer:?Crystal?Baldemar Service?Date:?12/27/2023 Service?Provider:?Luna?Lyndsey,?ASSOCIATE PROFESSOR OF MEDIA ARTS I?met?face?to?face?with?the?patient?today. OVERVIEW The?patient?presented?with?ESRD?on?dialysis Primary?cause?of?renal?failure:?Unspecified?complication?of?kidney?transplant Comments:?12/27/23?-?Stable?treatment. 11/10/23?-?Stable?treatment?with?no?acute?issues.?States? he?is?feeling?well?on?non?dialysis?days. [...] ??EDW:?71 ??Duration:?3:45 ??Calcium:?2.5 ??Bicarb:?35 ??Rx?updated?on:?12/25/2023 TREATMENT?ASSESSMENT BP?Stand?Pre ??12/22/2023:?155/51 ??12/20/2023:?99/59 BP?Sit?Pre ??12/24/2023:?107/56 ??12/22/2023:?128/57 ??12/20/2023:?109/69 BP?Stand?Post ??12/24/2023:?153/78 ??12/22/2023:?176/80 ??12/20/2023:?107/65 BP?Sit?Post ??12/24/2023:?127/60 ??12/22/2023:?148/62 ??12/20/2023:?111/70 Tx?Duration ??12/24/2023:?3:55 ??12/22/2023:?3:49 ??12/20/2023:?3:46 Missed?Treatments 0?-?last?30?days 0?-?last?60?days FLUID?ASSESSMENT EDW?(kg) ??12/24/2023:?71.5 ??12/22/2023:?71.5 ??12/20/2023:?71.5 Weight?Pre?(kg) ??12/24/2023:?72.8 ??12/22/2023:?72.3 ??12/20/2023:?74.3 Weight?Post?(kg) ??12/24/2023:?71.0 ??12/22/2023:?71.4 ??12/20/2023:?70.4 PWV?(kg) ??12/24/2023:?-0.5 ??12/22/2023:?-0.1 ??12/20/2023:?-1.1 UF?Rate?(mL/kg/hr) ??12/24/2023:?6.5 ??12/22/2023:?3.3 ??12/20/2023:?14.7 ADEQUACY?ASSESSMENT spKt/V,?URR ??12/13/2023:?1.55,?72.0 ??11/15/2023:?1.57,?72.0 ??10/11/2023:?1.61,?74.0 ACCESS?ASSESSMENT ??Access?Type:?CVCatheter ??Access?SubType:?Tunneled ??Access?Status:?Active?(In?Use)?-?12/01/2021 ??Access?Location:?Chest ??Placed:?09/29/2021 ANEMIA?ASSESSMENT HGB,?TSAT ??12/20/2023:?12.4,?- ??12/13/2023:?12.2,?33.0 ??12/06/2023:?12.3,?- ?? Ferritin ??12/13/2023:?663.0 ??11/15/2023:?816.0 ??10/11/2023:?1132.0 BMM?ASSESSMENT PTH,?Intact ??12/13/2023:?601.0 ??11/15/2023:?703.0 ??10/11/2023:?439.0 ?? Calcium,?Phosphorus ??12/20/2023:?8.9,?5.9 ??12/13/2023:?8.9,?4.8 ??12/06/2023:?9.1,?6.0 Vitamin?D?(Calcitriol)?Oral?(mcg) ??12/24/2023:?0.75 ??12/22/2023:?0.75 ??12/20/2023:?1.0 NUTRITION?ASSESSMENT Potassium,?Albumin ??12/20/2023:?5.2,?- ??12/13/2023:?5.7,?4.3 ??12/06/2023:?6.7,?- ?? eNPCR ??12/13/2023:?1.12 ??11/15/2023:?0.83 ??10/11/2023:?0.87 DIAGNOSIS Chief?Complaint:?N18.6?End?stage?renal?disease Patient?data?updated?12/27/2023?at?12:56?PM Signed?By:?Lyndsey,?Luna,?ASSOCIATE PROFESSOR OF MEDIA ARTS??on?12/27/2023?12:56:28 PM END OF DOCUMENT
--- OUTSIDE RECORDS SUMMARY | 2024-04-22 10:49 | XMS_ITS ---
Author Name Heath Soloriocy Address [address] [place] [id number] Phone [phone] Organization [facility], NA DOCUMENT DISCLAIMER Multiple document versions may exist, please be sure you review the latest version. The information in the [facility] Progress Note Document represents a providers documented clinical note containing certain health and medical information. It may not contain the complete medical history for the patient and should be independently verified. The represented time in the document is Eastern Time PROVIDER ROUNDING NOTE BASIC Patient:?CHRISTY?ARNOL,?1960,?63y,?M Dialysis?Location:?[place] Attending?Donor Services Team Leader:?Crystal?Baldemar Service?Date:?02/11/2024 Service?Provider:?Luna?Lyndsey,?PROTOCOL OFFICER I?met?face?to?face?with?the?patient?today. OVERVIEW The?patient?presented?with?ESRD?on?dialysis Primary?cause?of?renal?failure:?Unspecified?complication?of?kidney?transplant Comments:?02/11/24?-?Stable?dialysis?treatment?with?no?acute&# 160;issues?or?complaints.?Meeting?EDW.?AVF?functioning?well. 01/24/24?-?Labs,?vital?signs?and?metabolic?parameters?reviewe [...] ??EDW:?71 ??Duration:?3:45 ??Calcium:?2.5 ??Bicarb:?35 ??Rx?updated?on:?12/25/2023 TREATMENT?ASSESSMENT BP?Stand?Pre ??02/09/2024:?97/40 ??02/07/2024:?117/51 ??02/04/2024:?100/68 BP?Sit?Pre ??02/09/2024:?103/51 ??02/07/2024:?90/51 ??02/04/2024:?91/51 BP?Stand?Post ??02/09/2024:?134/81 ??02/07/2024:?135/89 ??02/04/2024:?143/91 BP?Sit?Post ??02/09/2024:?136/65 ??02/07/2024:?136/97 ??02/04/2024:?135/68 Tx?Duration ??02/09/2024:?3:53 ??02/07/2024:?3:49 ??02/04/2024:?3:50 Missed?Treatments 0?-?last?30?days 0?-?last?60?days FLUID?ASSESSMENT EDW?(kg) ??02/09/2024:?71.0 ??02/07/2024:?71.0 ??02/04/2024:?71.0 Weight?Pre?(kg) ??02/09/2024:?72.5 ??02/07/2024:?71.9 ??02/04/2024:?71.0 Weight?Post?(kg) ??02/09/2024:?70.8 ??02/07/2024:?71.4 ??02/04/2024:?70.7 PWV?(kg) ??02/09/2024:?-0.2 ??02/07/2024:?0.4 ??02/04/2024:?-0.3 UF?Rate?(mL/kg/hr) ??02/09/2024:?6.2 ??02/07/2024:?1.8 ??02/04/2024:?1.1 ADEQUACY?ASSESSMENT spKt/V,?URR ??01/14/2024:?1.49,?73.0 ??12/13/2023:?1.55,?72.0 ??11/15/2023:?1.57,?72.0 ACCESS?ASSESSMENT ??Access?Type:?CVCatheter ??Access?SubType:?Tunneled ??Access?Status:?Active?(In?Use)?-?12/01/2021 ??Access?Location:?Chest ??Placed:?09/29/2021 ANEMIA?ASSESSMENT HGB ??02/07/2024:?12.9 ??01/31/2024:?12.7 ??01/24/2024:?12.7 ?? Ferritin ??01/14/2024:?652.0 ??12/13/2023:?663.0 ??11/15/2023:?816.0 BMM?ASSESSMENT PTH,?Intact ??01/10/2024:?217.0 ??12/13/2023:?601.0 ??11/15/2023:?703.0 ?? Calcium,?Phosphorus ??02/07/2024:?10.1,?2.8 ??01/31/2024:?9.9,?3.5 ??01/24/2024:?9.0,?4.1 Vitamin?D?(Calcitriol)?Oral?(mcg) ??02/09/2024:?0.75 ??02/07/2024:?1.0 ??02/04/2024:?0.75 NUTRITION?ASSESSMENT Potassium ??02/07/2024:?5.5 ??01/31/2024:?5.5 ??01/24/2024:?5.4 ?? eNPCR ??01/14/2024:?0.9 ??12/13/2023:?1.12 ??11/15/2023:?0.83 DIAGNOSIS Chief?Complaint:?N18.6?End?stage?renal?disease Patient?data?updated?02/11/2024?at?11:27?AM Signed?By:?Lyndsey,?Luna,?PROTOCOL OFFICER??on?02/11/2024?11:27:39 AM END OF DOCUMENT
--- OUTSIDE RECORDS SUMMARY | 2024-04-22 10:49 | XMS_ITS ---
Author Name Lyndsey, Luna Address [address] [place] [address] Phone [phone] Organization [facility], [...] Eastern Time PROVIDER ROUNDING NOTE BASIC Patient:?CHRISTY?ARNOL,?1960,?63y,?M Dialysis?Location:?[place] Attending?Coal Carrier:?Crystal?Baldemar Service?Date:?08/25/2023 Service?Provider:?Luna?Lyndsey,?ENTERPRISE ARCHITECT MANAGER I?met?face?to?face?with?the?patient?today. OVERVIEW The?patient?presented?with?ESRD?on?dialysis Primary?cause?of?renal?failure:?Unspecified?complication?of?kidney?transplant Comments:?08/25/23?-?Stable?treatment. 08/20/23?-?Stable?dialysis?treatment?with?no?acute?issues. 07/16/23?-?Stable?treatment. [...] ??EDW:?69.5 ??Duration:?3:45 ??Calcium:?2.5 ??Bicarb:?35 ??Rx?updated?on:?08/11/2023 TREATMENT?ASSESSMENT BP?Stand?Pre ??08/23/2023:?121/80 ??08/20/2023:?98/67 ??08/18/2023:?108/64 BP?Sit?Pre ??08/23/2023:?100/76 ??08/20/2023:?91/57 ??08/18/2023:?132/61 BP?Stand?Post ??08/23/2023:?91/64 ??08/20/2023:?110/78 ??08/18/2023:?96/60 BP?Sit?Post ??08/23/2023:?113/92 ??08/20/2023:?106/86 ??08/18/2023:?103/70 Tx?Duration ??08/23/2023:?3:46 ??08/20/2023:?3:47 ??08/18/2023:?3:51 Missed?Treatments 0?-?last?30?days 0?-?last?60?days FLUID?ASSESSMENT EDW?(kg) ??08/23/2023:?69.5 ??08/20/2023:?69.5 ??08/18/2023:?69.5 Weight?Pre?(kg) ??08/23/2023:?73.6 ??08/20/2023:?70.9 ??08/18/2023:?72.3 Weight?Post?(kg) ??08/23/2023:?70.6 ??08/20/2023:?69.2 ??08/18/2023:?69.9 PWV?(kg) ??08/23/2023:?1.1 ??08/20/2023:?-0.3 ??08/18/2023:?0.4 UF?Rate?(mL/kg/hr) ??08/23/2023:?11.3 ??08/20/2023:?6.5 ??08/18/2023:?8.9 ADEQUACY?ASSESSMENT spKt/V,?URR ??08/16/2023:?1.83,?79.0 ??07/14/2023:?1.92,?78.0 ??06/14/2023:?1.69,?75.0 ACCESS?ASSESSMENT ??Access?Type:?CVCatheter ??Access?SubType:?Tunneled ??Access?Status:?Active?(In?Use)?-?12/01/2021 ??Access?Location:?Chest ??Placed:?09/29/2021 ANEMIA?ASSESSMENT HGB,?TSAT ??08/23/2023:?12.7,?- ??08/16/2023:?12.1,?31.0 ??08/09/2023:?12.8,?- ?? Ferritin ??08/16/2023:?1123.0 ??07/14/2023:?993.0 ??06/14/2023:?927.0 Iron?Sucrose?(Venofer)?(mg) ??07/02/2023:?100 ??06/30/2023:?100 ??06/28/2023:?100 BMM?ASSESSMENT Phosphorus,?Calcium ??08/23/2023:?4.2,?9.0 ??08/16/2023:?4.1,?9.2 ??08/09/2023:?4.2,?9.1 ?? PTH,?Intact ??08/16/2023:?882.0 ??07/14/2023:?892.0 ??06/14/2023:?1063.0 Vitamin?D?(Calcitriol)?Oral?(mcg) ??08/23/2023:?0.50 ??08/20/2023:?0.50 ??08/18/2023:?0.50 NUTRITION?ASSESSMENT Albumin,?Potassium ??08/23/2023:?-,?5.5 ??08/16/2023:?4.5,?5.6 ??08/09/2023:?-,?4.7 ?? eNPCR ??08/16/2023:?1.01 ??07/14/2023:?1.19 ??06/14/2023:?0.83 DIAGNOSIS Chief?Complaint:?N18.6?End?stage?renal?disease Patient?data?updated?08/25/2023?at?1:51?PM Signed?By:?Lyndsey,?Luna,?ENTER[employer]ISE ARCHITECT MANAGER??on?08/25/2023?1:51:50?PM END OF DOCUMENT
--- OUTSIDE RECORDS SUMMARY | 2024-04-22 10:49 | XMS_ITS ---
Author Name Crystal Mcdermott Address [address] [place] [address] Phone [phone] Organization [facility] e, NA DOCUMENT DISCLAIMER Multiple document versions may exist, please be sure you review the latest version. The information in the [facility] Progress Note Document represents a providers documented clinical note containing certain health and medical information. It may not contain the complete medical history for the patient and should be independently verified. The represented time in the document is Eastern Time PROVIDER ROUNDING NOTE BASIC HD PROVIDER?ROUNDING?NOTE?BASIC?HD Clinic:?[address] [place] [address] Visit?date:?05/28/2022?00:00?Modality/setting:?IHD CHRISTY?ARNOL?-?Chart?#:?[id number] Method?of?Interaction:?Face?to?face Date?of?Interaction:?09/29/2023 ?-?Patient?is?stable Patient?issues?include: 08/18/2022?-?Will?decrease?EDW?to?74?based?on?recent post-rx?weights. Prior?Treatment:?09/27/2023? Dialyzer:?180NRe?Optiflux? Dialysate:?2.0?K,?2.5 Ca,?1.0?Mg,?100?Dextrose?(G2251)? Prescribed?Time:?3:45? Actual?Time:?03:51? Avg?BFR:?450? Avg?DFR:?800? Wt?Gain?(kg):?5.60? EDW?(kg):?69.50? Home?Medications ?acetaminophen?(acetaminophen) 500?mg,?oral,?2?tablet?three?times?a?day ??allopurinol?(allopurinol) 100?mg,?oral,?1?tablet?once?a?day ??Mt?Low?Dose?Aspirin?(aspirin) 81?mg,?oral,?1?tablet?once?a?day ??benzonatate?(benzonatate) 100?mg,?oral,?1??as?directed ??levetiracetam?(levetiracetam) 250?mg,?oral,?1?tablet?three?times?a?week [POST?Dialysis] ??levetiracetam?(levetiracetam) 500?mg,?oral,?1?tablet?twice?a?day ??levothyroxine?(levothyroxine) 100?mcg,?oral,?1?tablet?once?a?day ??Mucinex?(guaifenesin) 600?mg,?oral,?1?tablet?every?twelve?hours ??pantoprazole?(pantoprazole) 20?mg,?oral,?1?tablet?once?a?day ??Tania-Madiha?(b?complex-vitamin?c-folic?acid) 0.8?mg,?oral,?1?tablet?once?a?day ??tacrolimus?(tacrolimus) 1?mg,?oral,?1?capsule?twice?a?day ??Veltassa?(patiromer?calcium?sorbitex) 25.2?gram,?oral,?1?packet?once?a?day [take?4?times?a?wk?on?non?dialysis?days,?as?needed?to?reach?desired?K+target.] Crystal?Baldemar,? END OF DOCUMENT
--- OUTSIDE RECORDS SUMMARY | 2024-04-22 10:49 | XMS_ITS ---
Author Name Bhargavi Wang Address [address] [place] [id number] Phone [phone] Organization [facility] e, NA DOCUMENT DISCLAIMER Multiple document versions may exist, please be sure you review the latest version. The information in the [facility] Progress Note Document represents a providers documented clinical note containing certain health and medical information. It may not contain the complete medical history for the patient and should be independently verified. The represented time in the document is Eastern Time PROVIDER ROUNDING NOTE BASIC HD PROVIDER?ROUNDING?NOTE?BASIC?HD Clinic:?[address] [place] [address] Visit?date:?05/28/2022?00:00?Modality/setting:?IHD CHRISTY?ARNOL?-?Chart?#:?[id number] Method?of?Interaction:?Face?to?face Date?of?Interaction:?03/20/2024 ?-?Patient?is?stable Patient?issues?include: 03/20/24-?Patient?seen?and?examined?on?hemodialysis.?Tolerating&#16 0;treatment?well.?No issues?or?patient?complaints. Prior?Treatment:?03/17/2024? Dialyzer:?180NRe?Optiflux? Dialysate:?2.0?K,?2.5 Ca,?1.0?Mg,?100?Dextrose?(G2251)? Prescribed?Time:?3:45? Actual?Time:?03:47? Avg?BFR:?460? Avg?DFR:?800? Wt?Gain?(kg):?1.80? EDW?(kg):?71.00? Home?Medications ?acetaminophen?(acetaminophen) 500?mg,?oral,?2?tablet?three?times?a?day ??allopurinol?(allopurinol) 100?mg,?oral,?1?tablet?once?a?day ??Mt?Low?Dose?Aspirin?(aspirin) 81?mg,?oral,?1?tablet?once?a?day ??benzonatate?(benzonatate) 100?mg,?oral,?1??as?directed ??levetiracetam?(levetiracetam) 250?mg,?oral,?1?tablet?three?times?a?week [POST?Dialysis] ??levetiracetam?(levetiracetam) 500?mg,?oral,?1?tablet?twice?a?day ??levothyroxine?(levothyroxine) 100?mcg,?oral,?1?tablet?once?a?day ??Mucinex?(guaifenesin) 600?mg,?oral,?1?tablet?every?twelve?hours ??pantoprazole?(pantoprazole) 20?mg,?oral,?1?tablet?once?a?day ??Tania-Madiha?(b?complex-vitamin?c-folic?acid) 0.8?mg,?oral,?1?tablet?once?a?day ??sevelamer?carbonate?(sevelamer?carbonate) 800?mg,?oral,?1?tablet?three?times?a?day ??tacrolimus?(tacrolimus) 1?mg,?oral,?1?capsule?twice?a?day ??Veltassa?(patiromer?calcium?sorbitex) 25.2?gram,?oral,?1?packet?once?a?day [take?4?times?a?wk?on?non?dialysis?days,?as?needed?to?reach?desired?K+target.] Bhargavi?J?Felipe,?TRIALS MANAGER END OF DOCUMENT
--- OUTSIDE RECORDS SUMMARY | 2024-04-22 10:49 | XMS_ITS ---
Author Name Heath Soloriocy Address [address] [place] [id number] Phone [phone] Organization [facility], NA DOCUMENT DISCLAIMER Multiple document versions may exist, please be sure you review the latest version. The information in the [facility] Progress Note Document represents a providers documented clinical note containing certain health and medical information. It may not contain the complete medical history for the patient and should be independently verified. The represented time in the document is Eastern Time PROVIDER ROUNDING NOTE BASIC Patient:?CHRISTY?ARNOL,?1960,?63y,?M Dialysis?Location:?[place] Attending?Proposal Editor:?Crystal?Baldemar Service?Date:?10/15/2023 Service?Provider:?Luna?Lyndsey,?INTENSIVE CARE UNIT REGISTERED NURSE I?met?face?to?face?with?the?patient?today. OVERVIEW The?patient?presented?with?ESRD?on?dialysis Primary?cause?of?renal?failure:?Unspecified?complication?of?kidney?transplant Comments:?10/11/23?-?Stable?treatment.?No?acute?issues. 09/15/23?-?Recent?admission?for?confusion?and???seizure?a ctivity.?Pts?mental?status?back?at?baseline?today.?No?f urther?seizure?activity?reported.?Stable?dialysis.?No?complaints.? 08/25/23?-?Stable?treatment. 08/20/23?-?Stable?dialysis?treatment?with?no?acute?issues. 07/16/23?-?Stable?treatment. 06/16/23?-?It?was?reported?that?pts?nursing?home?current [...] ??EDW:?69.5 ??Duration:?3:45 ??Calcium:?2.5 ??Bicarb:?35 ??Rx?updated?on:?08/11/2023 TREATMENT?ASSESSMENT BP?Stand?Pre ??10/13/2023:?93/67 ??10/11/2023:?96/69 ??10/08/2023:?130/88 BP?Sit?Pre ??10/13/2023:?110/71 ??10/11/2023:?109/72 ??10/08/2023:?117/72 BP?Stand?Post ??10/13/2023:?118/80 ??10/11/2023:?106/72 ??10/08/2023:?137/98 BP?Sit?Post ??10/13/2023:?113/74 ??10/11/2023:?125/88 ??10/08/2023:?116/79 Tx?Duration ??10/13/2023:?3:47 ??10/11/2023:?3:58 ??10/08/2023:?3:50 Missed?Treatments 0?-?last?30?days 0?-?last?60?days FLUID?ASSESSMENT EDW?(kg) ??10/13/2023:?69.5 ??10/11/2023:?69.5 ??10/08/2023:?69.5 Weight?Pre?(kg) ??10/13/2023:?73.6 ??10/11/2023:?74.8 ??10/08/2023:?73.8 Weight?Post?(kg) ??10/13/2023:?69.9 ??10/11/2023:?72.3 ??10/08/2023:?70.4 PWV?(kg) ??10/13/2023:?0.4 ??10/11/2023:?2.8 ??10/08/2023:?0.9 UF?Rate?(mL/kg/hr) ??10/13/2023:?14 ??10/11/2023:?8.7 ??10/08/2023:?12.6 ADEQUACY?ASSESSMENT spKt/V,?URR ??10/11/2023:?1.61,?74.0 ??09/15/2023:?1.91,?79.0 ??08/16/2023:?1.83,?79.0 ACCESS?ASSESSMENT ??Access?Type:?CVCatheter ??Access?SubType:?Tunneled ??Access?Status:?Active?(In?Use)?-?12/01/2021 ??Access?Location:?Chest ??Placed:?09/29/2021 ANEMIA?ASSESSMENT HGB,?TSAT ??10/11/2023:?12.0,?25.0 ??10/04/2023:?11.6,?- ??09/27/2023:?11.7,?- ?? Ferritin ??10/11/2023:?1132.0 ??09/15/2023:?1341.0 ??08/16/2023:?1123.0 BMM?ASSESSMENT Phosphorus,?Calcium ??10/11/2023:?3.1,?9.2 ??10/04/2023:?4.2,?8.7 ??09/27/2023:?4.0,?8.6 ?? PTH,?Intact ??10/11/2023:?439.0 ??09/20/2023:?1035.0 ??09/15/2023:?535.0 Vitamin?D?(Calcitriol)?Oral?(mcg) ??10/13/2023:?0.75 ??10/11/2023:?0.75 ??10/08/2023:?0.75 NUTRITION?ASSESSMENT Albumin,?Potassium ??10/11/2023:?4.2,?6.1 ??10/04/2023:?-,?5.8 ??09/27/2023:?-,?5.2 ?? eNPCR ??10/11/2023:?0.87 ??09/15/2023:?0.83 ??08/16/2023:?1.01 DIAGNOSIS Chief?Complaint:?N18.6?End?stage?renal?disease Patient?data?updated?10/15/2023?at?1:31?PM Signed?By:?Lyndsey,?Luna,?INTENSIVE CARE UNIT REGISTERED NURSE??on?10/15/2023?1:31:25?PM END OF DOCUMENT
--- OUTSIDE RECORDS SUMMARY | 2024-04-22 10:49 | XMS_ITS ---
Author Name Heath Soloriocy Address [address] [place] [id number] Phone [phone] Organization [facility], NA DOCUMENT DISCLAIMER Multiple document versions may exist, please be sure you review the latest version. The information in the [facility] Progress Note Document represents a providers documented clinical note containing certain health and medical information. It may not contain the complete medical history for the patient and should be independently verified. The represented time in the document is Eastern Time PROVIDER ROUNDING NOTE BASIC Patient:?CHRISTY?ARNOL,?1960,?63y,?M Dialysis?Location:?[place] Attending?Sponge Hooker:?Crystal?Baldemar Service?Date:?01/05/2024 Service?Provider:?Luna?Lyndsey,?HEALTH SAFETY COORDINATOR I?met?face?to?face?with?the?patient?today. OVERVIEW The?patient?presented?with?ESRD?on?dialysis Primary?cause?of?renal?failure:?Unspecified?complication?of?kidney?transplant Comments:?12/27/23?-?Stable?treatment. 11/10/23?-?Stable?treatment?with?no?acute?issues.?States? he?is?feeling?well?on?non?dialysis?days. [...] ??EDW:?71 ??Duration:?3:45 ??Calcium:?2.5 ??Bicarb:?35 ??Rx?updated?on:?12/25/2023 TREATMENT?ASSESSMENT BP?Stand?Pre ??01/03/2024:?113/42 ??12/31/2023:?93/47 ??12/29/2023:?120/58 BP?Sit?Pre ??01/03/2024:?124/42 ??12/31/2023:?109/51 ??12/29/2023:?106/55 BP?Stand?Post ??01/03/2024:?138/66 ??12/31/2023:?149/71 ??12/29/2023:?135/80 BP?Sit?Post ??01/03/2024:?131/61 ??12/31/2023:?140/75 ??12/29/2023:?135/60 Tx?Duration ??01/03/2024:?3:53 ??12/31/2023:?3:47 ??12/29/2023:?3:50 Missed?Treatments 0?-?last?30?days 0?-?last?60?days FLUID?ASSESSMENT EDW?(kg) ??01/03/2024:?71.0 ??12/31/2023:?71.0 ??12/29/2023:?71.0 Weight?Pre?(kg) ??01/03/2024:?73.4 ??12/31/2023:?72.7 ??12/29/2023:?72.4 Weight?Post?(kg) ??01/03/2024:?70.7 ??12/31/2023:?70.9 ??12/29/2023:?71.0 PWV?(kg) ??01/03/2024:?-0.3 ??12/31/2023:?-0.1 ??12/29/2023:?0.0 UF?Rate?(mL/kg/hr) ??01/03/2024:?9.8 ??12/31/2023:?6.7 ??12/29/2023:?5.1 ADEQUACY?ASSESSMENT spKt/V,?URR ??12/13/2023:?1.55,?72.0 ??11/15/2023:?1.57,?72.0 ??10/11/2023:?1.61,?74.0 ACCESS?ASSESSMENT ??Access?Type:?CVCatheter ??Access?SubType:?Tunneled ??Access?Status:?Active?(In?Use)?-?12/01/2021 ??Access?Location:?Chest ??Placed:?09/29/2021 ANEMIA?ASSESSMENT HGB,?TSAT ??12/27/2023:?12.8,?- ??12/20/2023:?12.4,?- ??12/13/2023:?12.2,?33.0 ?? Ferritin ??12/13/2023:?663.0 ??11/15/2023:?816.0 ??10/11/2023:?1132.0 BMM?ASSESSMENT PTH,?Intact ??12/13/2023:?601.0 ??11/15/2023:?703.0 ??10/11/2023:?439.0 ?? Calcium,?Phosphorus ??12/27/2023:?8.5,?5.7 ??12/20/2023:?8.9,?5.9 ??12/13/2023:?8.9,?4.8 Vitamin?D?(Calcitriol)?Oral?(mcg) ??01/03/2024:?1.0 ??12/31/2023:?0.75 ??12/29/2023:?0.75 NUTRITION?ASSESSMENT Potassium,?Albumin ??12/27/2023:?4.9,?- ??12/20/2023:?5.2,?- ??12/13/2023:?5.7,?4.3 ?? eNPCR ??12/13/2023:?1.12 ??11/15/2023:?0.83 ??10/11/2023:?0.87 DIAGNOSIS Chief?Complaint:?N18.6?End?stage?renal?disease Patient?data?updated?01/05/2024?at?12:42?PM Signed?By:?Lyndsey,?Luna,?HEALTH SAFETY COORDINATOR??on?01/05/2024?12:42:44 PM END OF DOCUMENT
--- OUTSIDE RECORDS SUMMARY | 2024-04-22 10:49 | XMS_ITS ---
Author Name Heath Soloriocy Address [address] [place] [address] Phone [phone] Organization [facility], [...] Time PROVIDER ROUNDING NOTE BASIC Patient:?CHRISTY?ARNOL,?1960,?63y,?M Dialysis?Location:?[place] Attending?Auxiliary Powerplant Operator:?Crystal?Baldemar Service?Date:?01/26/2024 Service?Provider:?Luna?Lyndsey,?INSTALLER INSPECTOR FINAL I?met?face?to?face?with?the?patient?today. OVERVIEW The?patient?presented?with?ESRD?on?dialysis Primary?cause?of?renal?failure:?Unspecified?complication?of?kidney?transplant Comments:?01/24/24?-?Labs,?vital?signs?and?metabolic?paramete rs?reviewed.?Stable?treatment?with?no?complaints?or?acute issues.? [...] ??EDW:?71 ??Duration:?3:45 ??Calcium:?2.5 ??Bicarb:?35 ??Rx?updated?on:?12/25/2023 TREATMENT?ASSESSMENT BP?Stand?Pre ??01/24/2024:?90/60 ??01/21/2024:?125/80 ??01/19/2024:?137/55 BP?Sit?Pre ??01/24/2024:?113/47 ??01/21/2024:?107/58 ??01/19/2024:?129/53 BP?Stand?Post ??01/24/2024:?139/83 ??01/21/2024:?153/60 ??01/19/2024:?123/63 BP?Sit?Post ??01/24/2024:?122/53 ??01/21/2024:?151/80 ??01/19/2024:?120/63 Tx?Duration ??01/24/2024:?3:52 ??01/21/2024:?3:37 ??01/19/2024:?3:49 Missed?Treatments 0?-?last?30?days 0?-?last?60?days FLUID?ASSESSMENT EDW?(kg) ??01/24/2024:?71.0 ??01/21/2024:?71.0 ??01/19/2024:?71.0 Weight?Pre?(kg) ??01/24/2024:?74.3 ??01/21/2024:?74.5 ??01/19/2024:?71.8 Weight?Post?(kg) ??01/24/2024:?71.4 ??01/21/2024:?70.8 ??01/19/2024:?70.9 PWV?(kg) ??01/24/2024:?0.4 ??01/21/2024:?-0.2 ??01/19/2024:?-0.1 UF?Rate?(mL/kg/hr) ??01/24/2024:?10.5 ??01/21/2024:?14.4 ??01/19/2024:?3.3 ADEQUACY?ASSESSMENT spKt/V,?URR ??01/14/2024:?1.49,?73.0 ??12/13/2023:?1.55,?72.0 ??11/15/2023:?1.57,?72.0 ACCESS?ASSESSMENT ??Access?Type:?CVCatheter ??Access?SubType:?Tunneled ??Access?Status:?Active?(In?Use)?-?12/01/2021 ??Access?Location:?Chest ??Placed:?09/29/2021 ANEMIA?ASSESSMENT HGB,?TSAT ??01/24/2024:?12.7,?- ??01/17/2024:?13.5,?- ??01/14/2024:?-,?37.0 ?? Ferritin ??01/14/2024:?652.0 ??12/13/2023:?663.0 ??11/15/2023:?816.0 BMM?ASSESSMENT PTH,?Intact ??01/10/2024:?217.0 ??12/13/2023:?601.0 ??11/15/2023:?703.0 ?? Calcium,?Phosphorus ??01/24/2024:?9.0,?4.1 ??01/17/2024:?9.8,?5.1 ??01/14/2024:?8.9,?4.6 Vitamin?D?(Calcitriol)?Oral?(mcg) ??01/24/2024:?1.0 ??01/21/2024:?0.75 ??01/19/2024:?0.75 NUTRITION?ASSESSMENT Potassium,?Albumin ??01/24/2024:?5.4,?- ??01/17/2024:?5.5,?- ??01/14/2024:?5.1,?4.0 ?? eNPCR ??01/14/2024:?0.9 ??12/13/2023:?1.12 ??11/15/2023:?0.83 DIAGNOSIS Chief?Complaint:?N18.6?End?stage?renal?disease Patient?data?updated?01/26/2024?at?1:49?PM Signed?By:?Lyndsey,?Luna,?INSTALLER INSPECTOR FINAL??on?01/26/2024?1:49:51?PM END OF DOCUMENT
--- OUTSIDE RECORDS SUMMARY | 2024-04-22 10:49 | XMS_ITS ---
Author Name Crystal Mcdermott Address [address] [place] [address] Phone [phone] Organization [facility], NA DOCUMENT DISCLAIMER Multiple document versions may exist, please be sure you review the latest version. The information in the [facility] Progress Note Document represents a providers documented clinical note containing certain health and medical information. It may not contain the complete medical history for the patient and should be independently verified. The represented time in the document is Eastern Time PROVIDER ROUNDING NOTE COMP HD PROVIDER?ROUNDING?NOTE?COMP?HD Clinic:?[address] [place] [address] Visit?date:?05/28/2022?00:00?Modality/setting:?IHD CHRISTY?ARNOL?-?Chart?#:?[id number] Method?of?Interaction:?Face?to?face Date?of?Interaction:?07/28/2023 ?-?Patient?is?stable ?-?Medications?and?labs?reviewed. Prior?Treatment:?07/26/2023? Dialyzer:?180NRe?Optiflux? Dialysate:?2.0?K,?2.5 Ca,?1.0?Mg,?100?Dextrose?(G2251)? Prescribed?Time:?4:0?Avg?BFR:?& #160;??460?Wt?Gain?(kg):?2.50? Actual?Time:?04:01?Avg?DFR:?800?&#16 0;EDW?(kg):?69.50? Volume?Management?Comments: 06/02/2023?-?Euvolemic.??At/below?target?weight.??Decreased EDW?to?70.??? 07/28/2023?-?Euvolemic.??EDW?recently?decreased?based?on&#16 0;post-rx?weights.??No change. Adequacy ?spKt/V?eKdrt/V?&#160 ; ???OLC?(Del)?spKtv?URR?%?1.92?07/14/23?? ?1.72?07/14/23?? ?1.90?0 07/26/23?? ?78?07/14/23? ?1.69?06/14/23?? ?1.44?06/14/23?? ?1.98?0 07/23/23?? ?75?06/14/23? ?1.56?05/17/23?? ?1.38?05/17/23?? ?1.79?0 07/21/23?? ?70?05/17/23? ?Potassium,?Serum?mEq/L?Bicarbonate?mEq/L??&# 160;?Creatinine?mg/dL?5.0?07/19/23? 20?07/14/23?11 .40?08/26/20?4.7?07/14/23? 22?06/14/23?&# 160;?-?4.9?07/07/23? 23?05/17/23?&# 160;?-?-?Adequacy?parameters?reviewed Adequacy ?-?Adequacy?target?met ?Sitting?BP?Pre?Sitting BP?Post?Systolic/Diastolic?Systolic/Diastolic?116?/?66??07/26/23?110?/?71??07/26/23?112?/?58??07/23/23?105?/?74??07/23/23?102?/?71??07/21/23?116?/?81??07/21/23?? Blood?Pressure ?-?Blood?pressure?controlled Fluid?Status ?-?Fluid?status?acceptable Interdialytic?Weight?Gain ?-?Interdialytic?weight?gain?acceptable Prescription?Compliance ?-?Prescription?compliance?acceptable ?-?Potassium?controlled 07/28/2023?-?On?Slimma. Anemia ?HGB?g/dL? Transferrin?Sat.?(Calc)?%?Ferritin?ng/mL&#160 ;?11.4?07/19/23?31?07/14/23?993 ?07/14/23?? ?11.2?07/14/23?28?06/14/23?927 ?06/14/23?? ?10.6?07/07/23?11?05/17/23?747 ?05/17/23?? CRISTY?Administrations ??0?mcg?Mircera?07/25/22 ??0?mcg?Mircera?07/11/22 ??0?mcg?Mircera?06/27/22 IV?Iron?Administrations ??100?mg?Venofer?07/02/23 ??100?mg?Venofer?06/30/23 ??100?mg?Venofer?06/28/23 ?-?Anemia?reviewed ?-?Anemia?targets?met Bone?and?Mineral?Metabolism ??Calcium,?Total?mg/dL?? Calcium,?Corrected?mg/dL ?&#1 60;??Phosphorous?mg/dL??? PTH-Intact,?Plasma?pg/mL ??8.8?07/19/23? 8.4?07/14/23?3.8&#16 0;?07/19/23?892?07/14/23?8.7?07/14/23? 8.6?06/14/23?4.0&#16 0;?07/14/23?1063?06/14/23?8.1?07/07/23? 8.6?05/17/23?3.6&#16 0;?12/27/23?545?05/17/23?Vitamin?D?25?Hydroxy?ng/mL? ?Vitamin?D?Analogue? Administrations?Calcimimetics?56.5?06/14/23?0.25?mcg?Vitamin?D??07/26/23??& #160;?-?64.2?04/12/23?0.25?mcg?Vitamin?D??07/23/23??& #160;?-?73.3?01/12/23?0.25?mcg?Vitamin?D??07/21/23??& #160;?-? PTH ?-?PTH?elevated ?-?Bone?and?mineral?metabolism?parameters?reviewed ?-?Calcium?controlled ?-?Phosphorus?controlled 07/28/2023?-?PTH?still?above?target.??Will?increase?calcitriol?to?0.5mcg?qrx. Nutrition ?Albumin?g/dL? eNPCR?g/kg/day?4.4?07/14/23?? ?1.19?07/14/23?? ?4.3?06/14/23?? ?0.83?06/14/23?? ?4.3?05/17/23?? ?0.91?05/17/23?? ?-?Nutrition?reviewed Home?Medications ?acetaminophen?(acetaminophen) 500?mg,?oral,?2?tablet?three?times?a?day ??allopurinol?(allopurinol) 100?mg,?oral,?1?tablet?once?a?day ??Mt?Low?Dose?Aspirin?(aspirin) 81?mg,?oral,?1?tablet?once?a?day ??benzonatate?(benzonatate) 100?mg,?oral,?1??as?directed ??levetiracetam?(levetiracetam) 500?mg,?oral,?1?tablet?twice?a?day ??levothyroxine?(levothyroxine) 100?mcg,?oral,?1?tablet?once?a?day ??Mucinex?(guaifenesin) 600?mg,?oral,?1?tablet?every?twelve?hours ??pantoprazole?(pantoprazole) 20?mg,?oral,?1?tablet?once?a?day ??Tania-Madiha?(b?complex-vitamin?c-folic?acid) 0.8?mg,?oral,?1?tablet?once?a?day ??tacrolimus?(tacrolimus) 1?mg,?oral,?1?capsule?twice?a?day ??Veltassa?(patiromer?calcium?sorbitex) 8.4?gram,?oral,?1?packet?once?a?day [take?8.4?g/day?only?on?non-dialysis?days.?Increase?weekly&# 160;by?8.4g?1?day?as?needed?to?reach?desired?K+target.] Vascular?Access?-?Active/Maturing ?Type?Position/Location?Status?Access?ID?CVCatheter-Tunneled?Chest?Active?(In?Use)?[id number]?-?-?&# 160;?-? -?-?-?&# 160;?-? -? Access?Flows ??1391mL?per?min?10/22/21 ??1256mL?per?min?08/29/21 ??1559mL?per?min?08/27/21 ?-?Vascular?access?reviewed ?-?Current?access?is?functioning?well. 05/28/2022?-?PERMANENT?TDC.?? Exam ?-?Vital?signs?reviewed Pulmonary ?-?LUNGS?-?clear Cardiovascular ?-?CV?-?Blood?pressure?noted ?-?CV?-?RRR Edema ?-?EXT?-?No?edema Transplant?Status Topic Exploring?Alternative?Treatment?Options: Kidney?Transplant ?Person?Taught: ?-?Patient ?Additional?Education?Required:?No ?Date?Given:?07/02/2022 Interest?and?Eligibility?(If?changes?are?made,?Please?notify?SW?via?alert?below) ?Date?of?discussion?from?transplant?assessment:?07/09/2022 ?Patient?already?on?transplant?list??No ?Patient?interested?in?transplantation??Not?interested?-?medical?complication Tobacco?Cessation ??Tobacco?use:?Never?used Crystal?Baldemar,? END OF DOCUMENT
--- OUTSIDE RECORDS SUMMARY | 2024-04-22 10:49 | XMS_ITS ---
Author Name Heath Soloriocy Address [address] [place] [address] Phone [phone] Organization [facility], NA DOCUMENT DISCLAIMER Multiple document versions may exist, please be sure you review the latest version. The information in the [facility] Progress Note Document represents a providers documented clinical note containing certain health and medical information. It may not contain the complete medical history for the patient and should be independently verified. The represented time in the document is Eastern Time PROVIDER ROUNDING NOTE BASIC Patient:?CHRISTY?ARNOL,?1960,?63y,?M Dialysis?Location:?[facility] Attending?Cell Builder:?Crystal?Baldemar Service?Date:?03/24/2024 Service?Provider:?Luna?Lyndsey,?C[employer] RO[employer] I?met?face?to?face?with?the?patient?today. OVERVIEW The?patient?presented?with?ESRD?on?dialysis Primary?cause?of?renal?failure:?Unspecified?complication?of?kidney?transplant Comments:?03/24/24?-?Discussed?in?detail?what?DNR?means? and?what?resuscitation?means.?When?pt?asked?if?he?wishe d?for?CPRN?to?be?preformed?if?necessary,?he?answered&#1 60;well?certainly!.?Team?made?aware. 02/21/24?-?Stable?treatment 02/11/24?-?Stable?dialysis?treatment?with?no?acute?issues&#160 ;or?complaints.?Meeting?EDW.?AVF?functioning?well. 01/24/24?-?Labs,?vital?signs?and?metabolic?parameters?reviewe d.?Stable?treatment?with?no?complaints?or?acute?issues. 01/10/24?-?Stable?dialysis?treatment?with?no?acute?issues or?complaints. [...] ??EDW:?71 ??Duration:?3:45 ??Calcium:?2.5 ??Bicarb:?35 ??Rx?updated?on:?03/15/2024 TREATMENT?ASSESSMENT BP?Stand?Pre ??03/22/2024:?150/84 ??03/20/2024:?166/83 ??03/17/2024:?119/77 BP?Sit?Pre ??03/22/2024:?127/74 ??03/20/2024:?143/78 ??03/17/2024:?111/64 BP?Stand?Post ??03/22/2024:?124/89 ??03/20/2024:?159/63 ??03/17/2024:?131/85 BP?Sit?Post ??03/22/2024:?116/75 ??03/20/2024:?134/82 ??03/17/2024:?124/70 Tx?Duration ??03/22/2024:?4:08 ??03/20/2024:?3:48 ??03/17/2024:?3:47 Missed?Treatments 0?-?last?30?days 0?-?last?60?days FLUID?ASSESSMENT EDW?(kg) ??03/22/2024:?71.0 ??03/20/2024:?71.0 ??03/17/2024:?71.0 Weight?Pre?(kg) ??03/22/2024:?72.8 ??03/20/2024:?73.3 ??03/17/2024:?73.2 Weight?Post?(kg) ??03/22/2024:?71.4 ??03/20/2024:?71.6 ??03/17/2024:?70.6 PWV?(kg) ??03/22/2024:?0.4 ??03/20/2024:?0.6 ??03/17/2024:?-0.4 UF?Rate?(mL/kg/hr) ??03/22/2024:?4.7 ??03/20/2024:?6.2 ??03/17/2024:?9.7 ADEQUACY?ASSESSMENT spKt/V,?URR ??03/13/2024:?1.63,?74.0 ??02/14/2024:?1.52,?71.0 ??01/14/2024:?1.49,?73.0 ACCESS?ASSESSMENT ??Access?Type:?CVCatheter ??Access?SubType:?Tunneled ??Access?Status:?Active?(In?Use)?-?12/01/2021 ??Access?Location:?Chest ??Placed:?09/29/2021 ANEMIA?ASSESSMENT HGB,?TSAT ??03/20/2024:?12.6,?- ??03/13/2024:?12.7,?35.0 ??03/06/2024:?12.7,?- ?? Ferritin ??03/13/2024:?702.0 ??02/14/2024:?681.0 ??01/14/2024:?652.0 BMM?ASSESSMENT PTH,?Intact ??03/13/2024:?153.0 ??02/14/2024:?400.0 ??01/10/2024:?217.0 ?? Calcium,?Phosphorus ??03/20/2024:?9.2,?- ??03/13/2024:?9.7,?4.0 ??03/06/2024:?9.3,?- Vitamin?D?(Calcitriol)?Oral?(mcg) ??03/22/2024:?0.75 ??03/20/2024:?0.75 ??03/17/2024:?0.75 NUTRITION?ASSESSMENT Potassium,?Albumin ??03/20/2024:?5.4,?- ??03/13/2024:?5.2,?4.0 ??03/06/2024:?5.7,?- ?? 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
--- OUTSIDE RECORDS SUMMARY | 2024-04-22 10:49 | XMS_ITS ---
Author Name [facility], Clinic Address [address] [place] [id number] Phone [phone] Organization [facility] e, NA DOCUMENT DISCLAIMER Multiple document versions may exist, please be sure you review the latest version. The information in the [facility] Continuity of Care Document represents a summary of certain health and medical information. It may not contain the complete medical history for the patient and should be independently verified. The represented time in the document is Eastern Time. 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 Active December 06, 2023 Abnormality of albumin R77.0 Active November 102023 Disorder of phosphorus metabolism, unspecified E83.30 Active December 06, 2023 Anaphylactic shock, unspecified, initial encounter T78 .2XXA Active December 06, 2023 Other seizures G40.89 Active September 14 Secondary hyperparathyroidism of renal origin N25.81 Active June 21, 2023 Iron deficiency anemia, unspecified D50.9 Activ e March 14, 2023 Nonspecific low blood-pressure reading R03.1 Ac tive October 23, 2022 Other hypotension I95.89 Active July End stage renal disease N18.6 Active Danica mbluke 2021 Shortness of breath R06.02 Active May 27, 2022 Disorder of bone, unspecified M89.9 Active May 27, 2022 Coagulation defect, unspecified D68.9 Active May 27, 2022 Pain, unspecified R52 Active May 122021 Dependence on renal dialysis Z99.2 Active May 27, 2022 Anemia in chronic kidney disease D63.1 Active May 27, 2022 Encounter for immunization Z23 Active N ovember 2021 Anaphylactic reaction due to adverse effect of correct drug or medicament properly administered, initial encounter T88.6XXA Active May 27, 2022 Allergy, unspecified, initial encounter T78.40XA A ctive May 27, 2022 ALLERGIES AND ADVERSE REACTIONS Substance Reaction Severity Status codeine Unknown Active hydrochlorothiazide Unknown Active benazepril Unknown Active SOCIAL HISTORY Tobacco Use Status Tobacco Type Never smoker - Caregiver Characteristics No Information Available Characteristics of Home environment No Information Available MEDICATIONS Prescribed Medications for Dialysis Treatments Medication Instructions Dosage Route Start Date End Date Stat us Heparin Sodium (Porcine) 1,000 Units/mL Catheter Lock Arterial Every Treatment 2300 units Arterial Red Port March 13, 2024 March 12, 2025 Active Heparin Sodium (Porcine) 1,000 Units/mL Catheter Lock Venous Every Treatment 2300 units Venous Blue Port March 13, 2024 March 12, 2025 Active Heparin Sodium (Porcine) 1,000 Units/mL Systemic Bolus, Every Treatment, Total treatment minutes 225 8000 units Intravenous - push March 13, 2024 March 12, 2025 Active Vitamin D (Calcitriol) Oral 3X Week 0.75 mcg Oral March 17, 2024 March 16, 2025 Active Home Medications Medication Instructions Dosage Route Start Date End Date Stat acetaminophen 500 mg Take by mouth three times a day as needed 2 tablet ORAL August 14, 2020 Active allopurinol 100 mg Take by mouth once a day as directed 1 tablet ORAL November 12, 2022 Active Mt Low Dose Aspirin 81 mg Take by mouth once a day as directed 1 tablet ORAL April 10, 2019 Active benzonatate 100 mg as directed 1 ORAL Septe mb2022 Active levetiracetam 500 mg Take by mouth twice a day as directed 1 tablet ORAL January 14, 2021 Active levetiracetam 250 mg by mouth three times a week 1 tablet ORAL September 15, 2023 Active levothyroxine 100 mcg Take by mouth once a day as directed 1 tablet ORAL July 16, 2021 Active Mucinex 600 mg Take by mouth every twelve hours as needed 1 tablet ORAL August 14, 2020 Active pantoprazole 20 mg Take by mouth once a day as directed 1 tablet ORAL August 14, 2020 Active Tania-Madiha 0.8 mg Take by mouth once a day 1 tablet ORAL November 12, 2022 Active sevelamer carbonate 800 mg Take by mouth three times a day with meals 1 tablet ORAL January 19, 2024 Active tacrolimus 1 mg Take by mouth twice a day as directed 1 capsule ORAL March 13, 2023 Active Veltassa 25.2 gram Take by mouth once a day 1 packet ORAL September 29, 2023 Active VITAL SIGNS Post-Treatment Vital Signs Vital Sign Value Date / Time Blood Pressure-sitting 114/90 mmHg April 112023 09:52 AM Blood Pressure-standing 120/88 mmHg April 21, 2024 09:52 AM Heart Rate 59 beats per minute April 21, 2024 09:52 AM Respiratory Rate 18 breaths per minute April 112023 09:52 AM Temperature 97.0 deg. F April 21, 2024 09:52 AM Weight Vital Sign Value Date / Time Estimated Dry Weight 71 kg March 11:59 PM Pre-Dialysis 72.70 kg April 21, 2024 09:52 AM Post-Dialysis 70.30 kg April 21, 2024 09:52 AM Other Other Value Date / Time Height 180 cm September 10, 2022 2:00 AM HEALTH CONCERNS Tuberculosis Testing TST Date Administered TST Date Read TST Result 2018 08/10/2018 Negative (<5) mm LAB RESULTS Hematology Result Type Result Value Relevant Referen ce Range Interpretation Date WBC (No Diff) 4.57 1000/mcL 4.80 - 10.80 1000/mcL Low November 15, 2023 Platelets 144 1000/mcL 130 - 400 1000/mcL - November 15, 2023 Ferritin 816 ng/mL 22 - 322 ng/mL High November 14 24 TIBC (Calc) 221 mcg/dL 185 - 515 mcg/dL - November 15, 2023 Transferrin Sat. (Calc) 35 % 20 - 55 % - November 15, 2023 UIBC/TIBC 143 mcg/dL 155 - 355 mcg/dL Low November 15, 2023 Neutrophils 62.7 % 40.0 - 75.0 % - November 14 24 Ferritin 663 ng/mL 22 - 322 ng/mL High December 12, 024 TIBC (Calc) 220 mcg/dL 185 - 515 mcg/dL - December UIBC/TIBC 148 mcg/dL 155 - 355 mcg/dL Low December 13, 2023 Transferrin Sat. (Calc) 33 % 20 - 55 % - December 13, 2023 WBC (No Diff) 4.71 1000/mcL 4.80 - 10.80 1000/mcL Low December 13, 2023 Neutrophils 62.6 % 40.0 - 75.0 % - December 12, 024 Platelets 152 1000/mcL 130 - 400 1000/mcL - December 13, 2023 Ferritin 652 ng/mL 22 - 322 ng/mL High January 13, 024 UIBC/TIBC 133 mcg/dL 155 - 355 mcg/dL Low January 14, 2024 Transferrin Sat. (Calc) 37 % 20 - 55 % - January 14, 2024 TIBC (Calc) 211 mcg/dL 185 - 515 mcg/dL - January Neutrophils 61.6 % 40.0 - 75.0 % - January 23 024 WBC (No Diff) 5.48 1000/mcL 4.80 - 10.80 1000/mcL - January 24, 2024 CHARIS 4.8 % 0.0 - 4.0 % High January 24, 2024 Basophils 1.7 % 0.0 - 1.5 % High January 24, 2024 Eosinophil 3.8 % 0.0 - 7.0 % - January 24, 2024 Monocytes 8.4 % 3.0 - 10.0 % - January 23 Lymphocytes 19.7 % 19.0 - 48.0 % - January 23 MCH 32.7 pg 27.0 - 31.0 pg High January 23 024 Platelets 191 1000/mcL 130 - 400 1000/mcL - January 24, 2024 Hemoglobin x 3 38.1 % 42.0 - 54.0 % Low January RDW 12.3 % 11.5 - 14.5 % - January 23 MCHC 32.7 g/dL 30.0 - 36.0 g/dL - January 24, 2024 Hemoglobin x 3 38.1 % 42.0 - 54.0 % Low January Hemoglobin x 3 38.7 % 42.0 - 54.0 % Low January Platelets 178 1000/mcL 130 - 400 1000/mcL - 2023 Hemoglobin x 3 38.7 % 42.0 - 54.0 % Low February 14, 2024 RDW 14.2 % 11.5 - 14.5 % - February 14, 2024 Transferrin Sat. (Calc) 35 % 20 - 55 % - February 14, 2024 Iron 76 mcg/dL 45 - 160 mcg/dL - February UIBC/TIBC 141 mcg/dL 155 - 355 mcg/dL Low February TIBC (Calc) 217 mcg/dL 185 - 515 mcg/dL - February 14, 2024 Neutrophils 63.1 % 40.0 - 75.0 % - February 14, 2024 CHARIS 3.1 % 0.0 - 4.0 % - February 13 Basophils 1.5 % 0.0 - 1.5 % - February 13 Eosinophil 3.4 % 0.0 - 7.0 % - February 13 Monocytes 7.8 % 3.0 - 10.0 % - February 13, 024 Lymphocytes 21.0 % 19.0 - 48.0 % - February 14, 2024 MCHC 31.8 g/dL 30.0 - 36.0 g/dL - February MCH 32.6 pg 27.0 - 31.0 pg High February 14, 2024 WBC (No Diff) 5.35 1000/mcL 4.80 - 10.80 1000/mcL - February 14, 2024 Ferritin 681 ng/mL 22 - 322 ng/mL High February 14, 2024 Hemoglobin x 3 39.3 % 42.0 - 54.0 % Low February 21, 2024 Retic HGB (CHr) 34.6 pg 25.4 - 31.8 pg High 2023 Hemoglobin x 3 38.1 % 42.0 - 54.0 % Low February 28, 2024 Hemoglobin x 3 38.1 % 42.0 - 54.0 % Low March 06, 2024 TIBC (Calc) 237 mcg/dL 185 - 515 mcg/dL - 2023 UIBC/TIBC 155 mcg/dL 155 - 355 mcg/dL - 2023 Transferrin Sat. (Calc) 35 % 20 - 55 % - March 13 Iron 82 mcg/dL 45 - 160 mcg/dL - March 13, 2024 Ferritin 702 ng/mL 22 - 322 ng/mL High March 13, 2024 Lymphocytes 18.5 % 19.0 - 48.0 % Low March 13, 2024 Neutrophils 61.8 % 40.0 - 75.0 % - March 13, 2024 Monocytes 6.9 % 3.0 - 10.0 % - March Basophils 1.5 % 0.0 - 1.5 % - March 13, 2024 Eosinophil 7.3 % 0.0 - 7.0 % High March 13, 2024 WBC (No Diff) 4.67 1000/mcL 4.80 - 10.80 1000/mcL Low March 13, 2024 CHARIS 4.0 % 0.0 - 4.0 % - March 13, 2024 MCH 32.9 pg 27.0 - 31.0 pg High March 13, 2024 RDW 13.1 % 11.5 - 14.5 % - March MCHC 32.6 g/dL 30.0 - 36.0 g/dL - Septembe r 2023 Platelets 189 1000/mcL 130 - 400 1000/mcL - Sept ember 2023 Hemoglobin x 3 38.1 % 42.0 - 54.0 % Low Septemb er 2023 Retic HGB (CHr) 33.9 pg 25.4 - 31.8 pg High Septe mber 2023 Hemoglobin x 3 37.8 % 42.0 - 54.0 % Low Septemb er 2023 Hemoglobin x 3 37.2 % 42.0 - 54.0 % Low Septemb er 2023 HGB 12.4 g/dL 14.0 - 18.0 g/dL Low Septembe r 2023 HGB 12.2 g/dL 14.0 - 18.0 g/dL Low Septembe r 2023 Hemoglobin x 3 36.6 % 42.0 - 54.0 % Low Septemb er 2023 Hemoglobin x 3 36.3 % 42.0 - 54.0 % Low Septemb er 2023 HGB 12.1 g/dL 14.0 - 18.0 g/dL Low Septembe r 2023 Platelets 198 1000/mcL 130 - 400 1000/mcL - Octo ana 2023 Retic HGB (CHr) 34.9 pg 25.4 - 31.8 pg High Octob er 2023 HGB 12.0 g/dL 14.0 - 18.0 g/dL Low April 17, 2024 Hemoglobin x 3 36 % 42.0 - 54.0 % Low April 17, 2024 MCH 32.1 pg 27.0 - 31.0 pg High April MCHC 32.1 g/dL 30.0 - 36.0 g/dL - April 17, 2024 HCT 37.3 % 42.0 - 52.0 % Low April 17, 2024 RDW 13.1 % 11.5 - 14.5 % - April 17, 2024 Basophils 4.5 % 0.0 - 1.5 % High April 17 024 CHARIS 2.9 % 0.0 - 4.0 % - April 17 Ferritin 778 ng/mL 22 - 322 ng/mL High April Eosinophil 4.7 % 0.0 - 7.0 % - April 17 WBC (No Diff) 4.84 1000/mcL 4.80 - 10.80 1000/mcL - April 17, 2024 RBC 3.73 mill/mcL 4.70 - 6.10 mill/mcL Low April 17, 2024 Iron 78 mcg/dL 45 - 160 mcg/dL - April UIBC/TIBC 143 mcg/dL 155 - 355 mcg/dL Low April 17, 2024 TIBC (Calc) 221 mcg/dL 185 - 515 mcg/dL - April 17, 2024 Transferrin Sat. (Calc) 35 % 20 - 55 % - April 17, 2024 Neutrophils 63.0 % 40.0 - 75.0 % - April Lymphocytes 18.4 % 19.0 - 48.0 % Low April Monocytes 6.5 % 3.0 - 10.0 % - April 17, 2024 Metabolic/Renal Result Type Result Value Relevant Referen ce Range Interpretation Date Potassium 5.4 mEq/L 3.5 - 5.1 mEq/L High January 24, 2024 Potassium 5.5 mEq/L 3.5 - 5.1 mEq/L High January 31, 2024 Potassium 5.5 mEq/L 3.5 - 5.1 mEq/L High February 07, 2024 BUN, Post 17 mg/dL 6 - 19 mg/dL - February 13 URR, Calc 71 % 65 - 80 % - February 13 Bicarbonate 22 mEq/L 22 - 29 mEq/L - February 14, 2024 Potassium 5.4 mEq/L 3.5 - 5.1 mEq/L High February BUN/Creat Ratio 5.6 10.0 - 20.0 Low February Sodium 142 mEq/L 136 - 145 mEq/L - February BUN 59 mg/dL 6 - 19 mg/dL High February 13 Creatinine, Serum 10.61 mg/dL 0.60 - 1.30 mg/dL High February 14, 2024 Chloride 98 mEq/L 96 - 108 mEq/L - February 21, 2024 Potassium 5.6 mEq/L 3.5 - 5.1 mEq/L High February Potassium 5.2 mEq/L 3.5 - 5.1 mEq/L High February Potassium 5.7 mEq/L 3.5 - 5.1 mEq/L High February Creatinine, Serum 11.60 mg/dL 0.60 - 1.30 mg/dL High March 13, 2024 BUN/Creat Ratio 5.7 10.0 - 20.0 Low 2023 Sodium 142 mEq/L 136 - 145 mEq/L - March 13, 2024 Bicarbonate 24 mEq/L 22 - 29 mEq/L - March 13, 2024 Chloride 98 mEq/L 96 - 108 mEq/L - March 13, 2024 Potassium 5.2 mEq/L 3.5 - 5.1 mEq/L High March 13, 2024 BUN 66 mg/dL 6 - 19 mg/dL High March URR, Calc 74 % 65 - 80 % - March 13, 2024 BUN, Post 17 mg/dL 6 - 19 mg/dL - March Potassium 5.4 mEq/L 3.5 - 5.1 mEq/L March 20, 2024 Potassium 5.6 mEq/L 3.5 - 5.1 mEq/L March 27, 2024 Potassium 5.6 mEq/L 3.5 - 5.1 mEq/L April 03, 2024 Potassium 5.4 mEq/L 3.5 - 5.1 mEq/L April 10, 2024 BUN/Creat Ratio 6.0 10.0 - 20.0 Low April 17, 2024 Sodium 144 mEq/L 136 - 145 mEq/L - April Potassium 5.2 mEq/L 3.5 - 5.1 mEq/L High April Chloride 100 mEq/L 96 - 108 mEq/L - April Bicarbonate 22 mEq/L 22 - 29 mEq/L - April BUN 66 mg/dL 6 - 19 mg/dL High April 17, 2024 Creatinine, Serum 11.01 mg/dL 0.60 - 1.30 mg/dL High April 17, 2024 URR, Calc 74 % 65 - 80 % - April 17 BUN, Post 17 mg/dL 6 - 19 mg/dL - April 17, 2024 HD Adequacy Result Type Result Value Relevant Referen ce Range Interpretation Date Krt/V 0.00 No Reference Ran ge Provided - November 15, 2023 Krt/V 0.00 No Reference Ran ge Provided - December 13, 2023 Krt/V 0.00 No Reference Ran ge Provided - January 14, 2024 spKt/V (Daugirdas II) 1.52 No Reference Range Provided - February 14, 2024 wstdKt/V, residual 0.0 No Reference Range Provided - February 14, 2024 wstdKt/V 2.4 No Reference Ran ge Provided - February 14, 2024 spKt/V Gotch 1.52 No Reference Ran ge Provided - February 14, 2024 Krt/V 0.00 No Reference Ran ge Provided - February 14, 2024 wstdKt/V without residual 2.4 No Reference Range Provided - February 14, 2024 eKt/V ([place]) 1.31 No Reference Range Provided - February 14, 2024 spKt/V (Daugirdas II) 1.63 No Reference Range Provided - March 13, 2024 wstdKt/V without residual 2.5 No Reference Range Provided - March 13, 2024 spKt/V Got 1.63 No Reference Ran ge Provided - March 13, 2024 wstdKt/V, residual 0.0 No Reference Range Provided - March 13, 2024 Krt/V 0.00 No Reference Ran ge Provided - March 13, 2024 wstdKt/V 2.5 No Reference Ran ge Provided - March 13, 2024 eKt/V ([place]) 1.42 No Reference Range Provided - March 13, 2024 wstdKt/V without residual 2.5 No Reference Range Provided - April 17, 2024 wstdKt/V, residual 0.0 No Reference Range Provided - April 17, 2024 wstdKt/V 2.5 No Reference Ran ge Provided - April 17, 2024 spKt/V (Daugirdas II) 1.57 No Reference Range Provided - April 17, 2024 eKt/V ([place]) 1.36 No Reference Range Provided - April 17, 2024 Krt/V 0.00 No Reference Ran ge Provided - April 17, 2024 spKt/V Gotch 1.56 No Reference Ran ge Provided - April 17, 2024 Bone/Mineral Result Type Result Value Relevant Referen ce Range Interpretation Date Vitamin D 25 Hydroxy 56.5 ng/mL 30.0 - 100.0 ng/mL - June 14, 2023 Magnesium 2.2 mg/dL 1.6 - 2.6 mg/dL - June 14, 2023 Vitamin D 25 Hydroxy 46.0 ng/mL 30.0 - 100.0 ng/mL - September 15, 2023 Magnesium 2.0 mg/dL 1.6 - 2.6 mg/dL - September 15, 2023 PTH-Intact, Plasma 703 pg/mL 16 - 80 pg/mL High November 15, 2023 PTH-Intact, Plasma 601 pg/mL 16 - 80 pg/mL High Dec Vitamin D 25 Hydroxy 51.5 ng/mL 30.0 - 100.0 ng/mL - December 13, 2023 Magnesium 2.3 mg/dL 1.6 - 2.6 mg/dL - December 13, 2023 PTH-Intact, Plasma 217 pg/mL 16 - 80 pg/mL High Jan Calcium, Total 9.0 mg/dL 8.4 - 10.2 mg/dL - January 24, 2024 Phosphorus 4.1 mg/dL 2.6 - 4.5 mg/dL - January 24, 2024 Ca x P Product 37 0 - - January 23, 2 024 Ca x P Product 35 0 - January 30, 2 024 Phosphorus 3.5 mg/dL 2.6 - 4.5 mg/dL - January 31, 2024 Calcium, Total 9.9 mg/dL 8.4 - 10.2 mg/dL - January 31, 2024 Ca x P Product 28 0 - - February 06, 2 024 Phosphorus 2.8 mg/dL 2.6 - 4.5 mg/dL - February 07, 2024 Calcium, Total 10.1 mg/dL 8.4 - 10.2 mg/dL - February 07, 2024 Corrected Ca x P Product 35 0 - 54 - February 14, 2024 Ca x P Product 36 0 - 54 - February 14, 2024 Calcium, Total 8.7 mg/dL 8.4 - 10.2 mg/dL - 2023 Phosphorus 4.1 mg/dL 2.6 - 4.5 mg/dL - February PTH-Intact, Plasma 400 pg/mL 16 - 80 pg/mL High Feb Ca x P Product 51 0 - 54 - February 21, 2024 Phosphorus 5.3 mg/dL 2.6 - 4.5 mg/dL High February Calcium, Total 9.6 mg/dL 8.4 - 10.2 mg/dL - 2023 Calcium, Total 9.7 mg/dL 8.4 - 10.2 mg/dL - 2023 Calcium, Total 9.3 mg/dL 8.4 - 10.2 mg/dL - 2023 Ca x P Product 39 0 - - March 13, 2024 Alkaline Phosphatase 86 U/L 40 - 129 U/L - pt2023 Corrected Ca x P Product 39 0 - March 13 Magnesium 2.5 mg/dL 1.6 - 2.6 mg/dL - March 13, 2024 Phosphorus 4.0 mg/dL 2.6 - 4.5 mg/dL - March 13, 2024 Calcium, Total 9.7 mg/dL 8.4 - 10.2 mg/dL - Mar Vitamin D 25 Hydroxy 59.5 ng/mL 30 - 100 ng/mL - March 13, 2024 PTH-Intact, Plasma 153 pg/mL 16 - 80 pg/mL High Mar Calcium, Total 9.2 mg/dL 8.4 - 10.2 mg/dL - Mar Ca x P Product 39 0 - April Calcium, Total 8.8 mg/dL 8.4 - 10.2 mg/dL - 2023 Phosphorus 4.4 mg/dL 2.6 - 4.5 mg/dL - April Corrected Ca x P Product 39 0 - 54 - April 17, 2024 PTH-Intact, Plasma 297 pg/mL 16 - 80 pg/mL High Apr Liver/Nutrition Result Type Result Value Relevant Reference Range Interpre tation Date eNPCR 0.83 No Reference Ran ge Provided - February 14, 2024 Albumin (BCG) 4.1 g/dL 3.5 - 5.2 g/dL - February 14, 2024 eNPCR 0.92 No Reference Ran ge Provided - March 13, 2024 Albumin (BCG) 4.0 g/dL 3.5 - 5.2 g/dL - 2023 Albumin (BCG) 4.0 g/dL 3.5 - 5.2 g/dL - April 17, 2024 eNPCR 0.89 No Reference Ran ge Provided - April 17, 2024 Immunochemistry Result Type Result Value Relevant Reference Range Interpre tation Date HCV s/co ratio 0.07 0.00 - 0.79 - January 31, 2024 Trace Elements Result Type Result Value Relevant Reference Range Interpre tation Date Aluminum 6 mcg/L 0 - 10 mcg/L - June 14, 2023 Infectious Diseases Result Type Result Value Relevant Referen ce Range Interpretation Date Hep B Surface Ab (anti-HBs) 132 mIU/mL No Reference Range Provided - June 14, 2023 Hep B core Ab Total (anti-HBc) Negative No Reference Range Provided - June 14, 2023 HCV Ab (anti-HCV) Nonreactive No Reference R kristy Provided - January 31, 2024 Hep B Surface Ag (HBsAg) Negative No Reference Range Provided - April 17, 2024 DIALYSIS PRESCRIPTION Conventional Hemodialysis Data Element Value Order Date/Time March 17, 2024 Frequency 3X Week Treatment Days MonWedFri Dialyzer [id number] Optiflux Treatment Time (Total Minutes) 225 min Blood Flow Rate (mL/min) 450 mL/min Dialysate Flow Rate Manual 800 Estimated Dry Weight 71 kg Dialysate Concentrate 2.0 K, 2.5 Ca, 1.0 Mg, 100 Dextrose (G2251) Sodium (mEq/L) 137 mEq/L Bicarb Machine Setting (mEq/L) 35 mEq/L Dialysis Access Hemodialysis-CV Cath eter-Tunneled, Chest, Left Jugular Access Placed on September 29, 2021 IMMUNIZATIONS Vaccine Date Dose Route Status Flu Vaccine - Flucelvax Trivalent April 19, 2024 0.5 mL Intramuscular Completed Flu Vaccine - Flublok Quadrivalent April 21, 2023 0.5 mL Intramuscular Completed HEPLISAV-B December 17, 2022 20.0 mcg Intramuscular Complete d HEPLISAV-B November 17, 2022 20.0 mcg Intramuscular Completed HEPLISAV-B, series 2 of 4 October 13, 2022 20.0 mcg Intram uscular Completed HEPLISAV-B August 25, 2021 20.0 mcg Intramuscular Comp leted VDUYDFY-K-SMTBS August 19, 2020 40.0 mcg Intramuscular Completed [id number] August 21, 2019 40.0 mcg Intramuscular Completed PNEUMOVAX 23 April 19, 2019 0.5 mL Intramuscular Com pleted OOYNZOF-Q-VEJTL, series 4 of 4 February 20, 2019 40.0 mcg Intramuscular Completed CIFDFWQ-G-DOWOF, series 3 of 4 October 17, 2018 40.0 mcg I ntramuscular Completed NTVSLFA-X-TKLMH, series 2 of 4 September 21, 2018 40.0 mcg I ntramuscular Completed TTMNKAJ-J-VDHUH, series 1 of 4 August 22, 2018 40.0 mcg Intramuscular Completed TRANSPLANT WAITLIST STATUS No Information on Transplant Waitlist Status ADVANCE DIRECTIVES Directive Description Ordered By Effective Date Resuscitation status Full Code Crystal Mcdermott Apr 07, 2024 DIALYSIS TREATMENTS Conventional Hemodialysis Date Pre-Treatment Vitals Post-Treatment Reema ls Duration (hr) BFR (mL/min) Dialysate Dialyzer Dialysis Access Meds Admin Octob 2023 Weight 73.30 kg Weight 71.70 kg 03:47:00 450 2.0 K, 2.5 Ca, 1.0 Mg, 100 Dextrose (G2251) 180nre Optifl ux Blood Pressure-sitting 128/72 mmHg Blood Pressure-sit ting 126/89 mmHg Blood Pressure-standing 132/81 mmHg Blood Pressure-st anding 128/82 mmHg Heart Rate 59 beats per minute Heart Rate 55 beats per minute Respiratory Rate 18 breaths per minute Respiratory Rate 16 breaths per minute Temperature 94.2 deg. F Temperature 96.1 deg. F April 19, 2024 Weight 73.10 kg Weight 70.80 kg 03:49:00 460 2.0 K, 2.5 Ca, 1.0 Mg, 100 Dextrose (G2251) 180nre Optiflux Hemodialysis-CV Catheter-Tunneled, Chest, Left Jugular Access Placed on September 29, 2021 Heparin Sodium (Porcine) 1,000 Units/mL Catheter Lock Arterial; 2300units,Arterial Red Port Heparin Sodium (Porcine) 1,000 Units/mL Catheter Lock Venous; 2300units,Venous Blue [place] Heparin Sodium (Porcine) 1,000 Units/mL Systemic; 8000units,Intravenous - push Vitamin D (Calcitriol) Oral; 0.75mcg,Oral Blood Pressure-sitting 94/78 mmHg Blood Pressure-sit ting 134/78 mmHg Blood Pressure-standing 111/81 mmHg Blood Pressure-st anding 150/81 mmHg Heart Rate 56 beats per minute Heart Rate 49 beats per minute Respiratory Rate 17 breaths per minute Respiratory Rate 18 breaths per minute Temperature 96.9 deg. F Temperature 97.0 deg. F April 21, 2024 Weight 72.70 kg Weight 70.30 kg 03:50:00 430 2.0 K, 2.5 Ca, 1.0 Mg, 100 Dextrose (G2251) 180nre Optiflux Hemodialysis-CV Catheter-Tunneled, Chest, Left Jugular Access Placed on September 29, 2021 Heparin Sodium (Porcine) 1,000 Units/mL Catheter Lock Arterial; 2300units,Arterial [place] Heparin Sodium (Porcine) 1,000 Units/mL Catheter Lock Venous; 2300units,Venous Blue [place] Heparin Sodium (Porcine) 1,000 Units/mL Systemic; 8000units,Intravenous - push Vitamin D (Calcitriol) Oral; 0.75mcg,Oral Blood Pressure-sitting 158/88 mmHg Blood Pressure-sit ting 114/90 mmHg Blood Pressure-standing 171/68 mmHg Blood Pressure-st anding 120/88 mmHg Heart Rate 80 beats per minute Heart Rate 59 beats per minute Respiratory Rate 18 breaths per minute Respiratory Rate 18 breaths per minute Temperature 97.1 deg. F Temperature 97.0 deg. F
--- OUTSIDE RECORDS SUMMARY | 2024-04-22 10:50 | XMS_ITS ---
Author Name Heath Soloriocy Address [address] [place] [address] Phone [phone] Organization [facility], [...] Eastern Time PROVIDER ROUNDING NOTE BASIC Patient:?CHRISTY?ARNOL,?1960,?63y,?M Dialysis?Location:?[place] Attending?Vp Site:?Crystal?Baldemar Service?Date:?01/10/2024 Service?Provider:?Luna?Lyndsey,?DIGITAL MEDIA MANAGER I?met?face?to?face?with?the?patient?today. OVERVIEW The?patient?presented?with?ESRD?on?dialysis Primary?cause?of?renal?failure:?Unspecified?complication?of?kidney?transplant Comments:?01/10/24?-?Stable?dialysis?treatment?with?no?acute&# 160;issues?or?complaints. 12/27/23?-?Stable?treatment. 11/10/23?-?Stable?treatment?with?no?acute?issues.?States? he?is?feeling?well?on?non?dialysis?days. 10/11/23?-?Stable?treatment.?No?acute?issues. 09/15/23?-?Recent?admission?for?confusion?and???seizure?a ctivity.?Pts?mental?status?back?at?baseline?today.?No?f urther?seizure?activity?reported.?Stable?dialysis.?No?complaints.? [...] ??EDW:?71 ??Duration:?3:45 ??Calcium:?2.5 ??Bicarb:?35 ??Rx?updated?on:?12/25/2023 TREATMENT?ASSESSMENT BP?Stand?Pre ??01/07/2024:?119/61 ??01/05/2024:?103/49 ??01/03/2024:?113/42 BP?Sit?Pre ??01/07/2024:?118/69 ??01/05/2024:?100/55 ??01/03/2024:?124/42 BP?Stand?Post ??01/07/2024:?135/75 ??01/05/2024:?127/63 ??01/03/2024:?138/66 BP?Sit?Post ??01/07/2024:?113/58 ??01/05/2024:?113/53 ??01/03/2024:?131/61 Tx?Duration ??01/07/2024:?4:05 ??01/05/2024:?3:47 ??01/03/2024:?3:53 Missed?Treatments 0?-?last?30?days 0?-?last?60?days FLUID?ASSESSMENT EDW?(kg) ??01/07/2024:?71.0 ??01/05/2024:?71.0 ??01/03/2024:?71.0 Weight?Pre?(kg) ??01/07/2024:?72.4 ??01/05/2024:?70.8 ??01/03/2024:?73.4 Weight?Post?(kg) ??01/07/2024:?71.3 ??01/05/2024:?69.9 ??01/03/2024:?70.7 PWV?(kg) ??01/07/2024:?0.3 ??01/05/2024:?-1.1 ??01/03/2024:?-0.3 UF?Rate?(mL/kg/hr) ??01/07/2024:?3.8 ??01/05/2024:?3.4 ??01/03/2024:?9.8 ADEQUACY?ASSESSMENT spKt/V,?URR ??12/13/2023:?1.55,?72.0 ??11/15/2023:?1.57,?72.0 ??10/11/2023:?1.61,?74.0 ACCESS?ASSESSMENT ??Access?Type:?CVCatheter ??Access?SubType:?Tunneled ??Access?Status:?Active?(In?Use)?-?12/01/2021 ??Access?Location:?Chest ??Placed:?09/29/2021 ANEMIA?ASSESSMENT HGB ??01/03/2024:?12.3 ??12/27/2023:?12.8 ??12/20/2023:?12.4 ?? Ferritin ??12/13/2023:?663.0 ??11/15/2023:?816.0 ??10/11/2023:?1132.0 BMM?ASSESSMENT PTH,?Intact ??12/13/2023:?601.0 ??11/15/2023:?703.0 ??10/11/2023:?439.0 ?? Calcium,?Phosphorus ??01/03/2024:?9.0,?6.3 ??12/27/2023:?8.5,?5.7 ??12/20/2023:?8.9,?5.9 Vitamin?D?(Calcitriol)?Oral?(mcg) ??01/07/2024:?0.75 ??01/05/2024:?0.75 ??01/03/2024:?1.0 NUTRITION?ASSESSMENT Potassium ??01/03/2024:?5.9 ??12/27/2023:?4.9 ??12/20/2023:?5.2 ?? eNPCR ??12/13/2023:?1.12 ??11/15/2023:?0.83 ??10/11/2023:?0.87 DIAGNOSIS Chief?Complaint:?N18.6?End?stage?renal?disease Patient?data?updated?01/10/2024?at?11:32?AM Signed?By:?Lyndsey,?Luna,?DIGITAL MEDIA MANAGER??on?01/10/2024?11:32:29 AM END OF DOCUMENT
--- OUTSIDE RECORDS SUMMARY | 2024-04-22 10:50 | XMS_ITS ---
Author Name Heath Soloriocy Address [address] [place] [address] Phone [phone] Organization [facility], NA DOCUMENT DISCLAIMER Multiple document versions may exist, please be sure you review the latest version. The information in the [facility] Progress Note Document represents a providers documented clinical note containing certain health and medical information. It may not contain the complete medical history for the patient and should be independently verified. The represented time in the document is Eastern Time PROVIDER ROUNDING NOTE BASIC Patient:?CHRISTY?ARNOL,?1960,?63y,?M Dialysis?Location:?[place] Attending?Director Of Healthcare Systems:?Crystal?Baldemar Service?Date:?04/19/2024 Service?Provider:?Luna?Lyndsey,?MCAT TUTOR I?met?face?to?face?with?the?patient?today. OVERVIEW The?patient?presented?with?ESRD?on?dialysis Primary?cause?of?renal?failure:?Unspecified?complication?of?kidney?transplant Comments:?04/14/24?-?Stable?hemodialysis?treatment?with?no?co mplaints?or?acute?issues. 04/07/24?-?Stable?treatment.?Meeting?EDW?and?adequacy?goals. [...] ??EDW:?71 ??Duration:?3:45 ??Calcium:?2.5 ??Bicarb:?35 ??Rx?updated?on:?03/15/2024 TREATMENT?ASSESSMENT BP?Stand?Pre ??04/17/2024:?132/81 ??04/14/2024:?86/56 ??04/12/2024:?102/64 BP?Sit?Pre ??04/17/2024:?128/72 ??04/14/2024:?109/65 ??04/12/2024:?99/54 BP?Stand?Post ??04/17/2024:?128/82 ??04/14/2024:?119/66 ??04/12/2024:?112/88 BP?Sit?Post ??04/17/2024:?126/89 ??04/14/2024:?136/46 ??04/12/2024:?104/72 Tx?Duration ??04/17/2024:?3:47 ??04/14/2024:?3:52 ??04/12/2024:?3:56 Missed?Treatments 0?-?last?30?days 0?-?last?60?days FLUID?ASSESSMENT EDW?(kg) ??04/17/2024:?71.0 ??04/14/2024:?71.0 ??04/12/2024:?71.0 Weight?Pre?(kg) ??04/17/2024:?73.3 ??04/14/2024:?71.6 ??04/12/2024:?71.1 Weight?Post?(kg) ??04/17/2024:?71.7 ??04/14/2024:?70.6 ??04/12/2024:?71.4 PWV?(kg) ??04/17/2024:?0.7 ??04/14/2024:?-0.4 ??04/12/2024:?0.4 UF?Rate?(mL/kg/hr) ??04/17/2024:?5.9 ??04/14/2024:?3.7 ??04/12/2024:?-1.1 ADEQUACY?ASSESSMENT spKt/V,?URR ??03/13/2024:?1.63,?74.0 ??02/14/2024:?1.52,?71.0 ??01/14/2024:?1.49,?73.0 ACCESS?ASSESSMENT ??Access?Type:?CVCatheter ??Access?SubType:?Tunneled ??Access?Status:?Active?(In?Use)?-?12/01/2021 ??Access?Location:?Chest ??Placed:?09/29/2021 ANEMIA?ASSESSMENT HGB ??04/17/2024:?12.0 ??04/10/2024:?12.1 ??04/03/2024:?12.2 ?? Ferritin ??03/13/2024:?702.0 ??02/14/2024:?681.0 ??01/14/2024:?652.0 BMM?ASSESSMENT PTH,?Intact ??04/17/2024:?297.0 ??03/13/2024:?153.0 ??02/14/2024:?400.0 ?? Calcium,?Phosphorus ??03/20/2024:?9.2,?- ??03/13/2024:?9.7,?4.0 ??03/06/2024:?9.3,?- Vitamin?D?(Calcitriol)?Oral?(mcg) ??04/17/2024:?0.75 ??04/14/2024:?0.75 ??04/12/2024:?0.75 NUTRITION?ASSESSMENT Potassium ??04/10/2024:?5.4 ??04/03/2024:?5.6 ??03/27/2024:?5.6 ?? eNPCR ??03/13/2024:?0.92 ??02/14/2024:?0.83 ??01/14/2024:?0.9 DIAGNOSIS Chief?Complaint:?N18.6?End?stage?renal?disease Patient?data?updated?04/19/2024?at?1:27?PM Signed?By:?Lyndsey,?Luna,?MCAT TUTOR??on?04/19/2024?1:27:31?PM END OF DOCUMENT
--- OUTSIDE RECORDS SUMMARY | 2024-04-22 10:50 | XMS_ITS ---
Author Name Heath Soloriocy Address [address] [place] [id number] Phone [phone] Organization [facility], NA DOCUMENT DISCLAIMER Multiple document versions may exist, please be sure you review the latest version. The information in the [facility] Progress Note Document represents a providers documented clinical note containing certain health and medical information. It may not contain the complete medical history for the patient and should be independently verified. The represented time in the document is Eastern Time PROVIDER ROUNDING NOTE BASIC Patient:?CHRISTY?ARNOL,?1960,?63y,?M Dialysis?Location:?[place] Attending?Switch Operators Supervisor:?Crystal?Baldemar Service?Date:?11/10/2023 Service?Provider:?Luna?Lyndsey,?LOCK TENDER CHIEF OPERATOR I?met?face?to?face?with?the?patient?today. OVERVIEW The?patient?presented?with?ESRD?on?dialysis Primary?cause?of?renal?failure:?Unspecified?complication?of?kidney?transplant Comments:?11/10/23?-?Stable?treatment?with?no?acute?issues.&#1 60;States?he?is?feeling?well?on?non?dialysis?days. 10/11/23?-?Stable?treatment.?No?acute?issues. [...] ??EDW:?71 ??Duration:?3:45 ??Calcium:?2.5 ??Bicarb:?35 ??Rx?updated?on:?11/08/2023 TREATMENT?ASSESSMENT BP?Stand?Pre ??11/08/2023:?91/60 ??11/05/2023:?82/60 ??11/03/2023:?115/58 BP?Sit?Pre ??11/08/2023:?116/79 ??11/05/2023:?95/60 ??11/03/2023:?132/54 BP?Stand?Post ??11/08/2023:?99/63 ??11/05/2023:?116/78 ??11/03/2023:?172/90 BP?Sit?Post ??11/08/2023:?112/72 ??11/05/2023:?112/71 ??11/03/2023:?112/59 Tx?Duration ??11/08/2023:?3:49 ??11/05/2023:?3:55 ??11/03/2023:?3:59 Missed?Treatments 0?-?last?30?days 0?-?last?60?days FLUID?ASSESSMENT EDW?(kg) ??11/08/2023:?70.5 ??11/05/2023:?70.0 ??11/03/2023:?70.0 Weight?Pre?(kg) ??11/08/2023:?76.2 ??11/05/2023:?73.5 ??11/03/2023:?74.2 Weight?Post?(kg) ??11/08/2023:?72.4 ??11/05/2023:?70.7 ??11/03/2023:?70.4 PWV?(kg) ??11/08/2023:?1.9 ??11/05/2023:?0.7 ??11/03/2023:?0.4 UF?Rate?(mL/kg/hr) ??11/08/2023:?13.8 ??11/05/2023:?10.1 ??11/03/2023:?13.6 ADEQUACY?ASSESSMENT spKt/V,?URR ??10/11/2023:?1.61,?74.0 ??09/15/2023:?1.91,?79.0 ??08/16/2023:?1.83,?79.0 ACCESS?ASSESSMENT ??Access?Type:?CVCatheter ??Access?SubType:?Tunneled ??Access?Status:?Active?(In?Use)?-?12/01/2021 ??Access?Location:?Chest ??Placed:?09/29/2021 ANEMIA?ASSESSMENT HGB ??11/08/2023:?11.1 ??11/01/2023:?12.0 ??10/25/2023:?11.9 ?? Ferritin ??10/11/2023:?1132.0 ??09/15/2023:?1341.0 ??08/16/2023:?1123.0 BMM?ASSESSMENT Phosphorus,?Calcium ??11/08/2023:?4.7,?8.7 ??11/01/2023:?5.6,?8.5 ??10/25/2023:?4.0,?9.1 ?? PTH,?Intact ??10/11/2023:?439.0 ??09/20/2023:?1035.0 ??09/15/2023:?535.0 Vitamin?D?(Calcitriol)?Oral?(mcg) ??11/08/2023:?0.75 ??11/05/2023:?0.75 ??11/03/2023:?0.75 NUTRITION?ASSESSMENT Potassium ??11/08/2023:?5.5 ??11/01/2023:?6.2 ??10/25/2023:?5.9 ?? eNPCR ??10/11/2023:?0.87 ??09/15/2023:?0.83 ??08/16/2023:?1.01 DIAGNOSIS Chief?Complaint:?N18.6?End?stage?renal?disease Patient?data?updated?11/10/2023?at?1:52?PM Signed?By:?Lyndsey,?Luna,?LOCK TENDER CHIEF OPERATOR??on?11/10/2023?1:52:44?PM END OF DOCUMENT
--- OUTSIDE RECORDS SUMMARY | 2024-04-22 10:50 | XMS_ITS ---
Author Name Crystal Mcdermott Address [address] [place] [address] Phone [phone] Organization [facility], NA DOCUMENT DISCLAIMER Multiple document versions may exist, please be sure you review the latest version. The information in the [facility] Progress Note Document represents a providers documented clinical note containing certain health and medical information. It may not contain the complete medical history for the patient and should be independently verified. The represented time in the document is Eastern Time PROVIDER ROUNDING NOTE COMP HD PROVIDER?ROUNDING?NOTE?COMP?HD Clinic:?[address] [place] [address] Visit?date:?05/28/2022?00:00?Modality/setting:?IHD CHRISTY?ARNOL?-?Chart?#:?[id number] Method?of?Interaction:?Face?to?face Date?of?Interaction:?02/28/2024 ?-?Patient?is?stable ?-?Medications?and?labs?reviewed. Patient?issues?include: 09/20/2023?-?Recently?had?a?seizure. Prior?Treatment:?02/25/2024? Dialyzer:?180NRe?Optiflux? Dialysate:?2.0?K,?2.5 Ca,?1.0?Mg,?100?Dextrose?(G2251)? Prescribed?Time:?3:45?Avg?BFR:?460?Wt?Gain (kg):?0.00? Actual?Time:?03:48?Avg?DFR:?800?&#16 0;EDW?(kg):?71.00? Volume?Management?Comments: 06/02/2023?-?Euvolemic.??At/below?target?weight.??Decreased EDW?to?70.??? 07/28/2023?-?Euvolemic.??EDW?recently?decreased?based?on&#16 0;post-rx?weights.??No change.?09/01/2023?-?Euvolemic.??Achieving?target weight.??No?change.??? 09/20/2023?-?High?gains?last?2?treatments;?not?usually?the?case.??Euvolemic.? Achieving?target?weight.?10/29/2023?-?Continues?to?have?high?gains.??Not achieving?target?weight.??EDW?changed?to?70;?will?try&# 160;to?gently?challenge.??? 12/03/2023?-?Euvolemic.??Achieving?target?weight.??No?change.?12/31/2023?- Fluid?gains?have?increased?somewhat.??Achieving?target?weight.??No?change.??? 02/02/2024?-?Euvolemic.??Achieving?target?weight.??No?change.?02/28/2024?- Euvolemic.??Achieving?target?weight.??No?change. Adequacy ?spKt/V?eKdrt/V?&#160 ; ???OLC?(Nilo)?spKtv?URR?%?1.52?02/14/24?? ?1.31?02/14/24?? ?1.59?0 02/25/24?? ?71?02/14/24? ?1.49?01/14/24?? ?1.31?01/14/24?? ?1.66?0 02/23/24?? ?73?01/14/24? ?1.55?12/13/23?? ?1.35?12/13/23?? ?1.53?0 02/21/24?? ?72?12/13/23? ?Potassium,?Serum?mEq/L?Bicarbonate?mEq/L??&# 160;?Creatinine?mg/dL?5.6?02/21/24? 22?02/14/24?10 .61?02/14/24?5.4?02/14/24? 27?01/14/24?8. 82?01/14/24?5.5?02/07/24? 22?12/13/23?12 .04?12/13/23?-?Adequacy?parameters?reviewed Adequacy ?-?Adequacy?target?met ?Sitting?BP?Pre?Sitting BP?Post?Systolic/Diastolic?Systolic/Diastolic?94?/?54??02/25/24?112?/?58 ?02/25/24?89?/?59??02/23/24?125?/?79 ?02/23/24?120?/?67??02/21/24?135?/?81??02/21/24?? Blood?Pressure ?-?Blood?pressure?controlled Fluid?Status ?-?Fluid?status?acceptable Interdialytic?Weight?Gain ?-?Interdialytic?weight?gain?acceptable Prescription?Compliance ?-?Prescription?compliance?acceptable ?-?Potassium?controlled 07/28/2023?-?On?Lokelma.?10/29/2023?-?BP?not&#1 60;always?well?controlled.??Will try?to?gently?challenge?weight,?revisit?fluid?restriction,?and?see?if?that?will bring?the?BP?into?range.?12/03/2023?-?K+?slightly?high.??On?2K?bath?and Lokelma.??Will?continue?to?monitor. Anemia ?HGB?g/dL? Transferrin?Sat.?(Calc)?%?Ferritin?ng/mL&#160 ;?13.1?02/21/24?35?02/14/24?681 ?02/14/24?? ?12.9?02/14/24?37?01/14/24?652 ?01/14/24?? ?12.9?02/07/24?33?12/13/23?663 ?12/13/23?? CRISTY?Administrations ??0?mcg?Mircera?07/25/22 ??0?mcg?Mircera?07/11/22 ??0?mcg?Mircera?06/27/22 IV?Iron?Administrations ??0?mg?Venofer?12/03/23 ??0?mg?Venofer?11/26/23 ??100?mg?Venofer?07/02/23 ?-?Anemia?reviewed ?-?Anemia?targets?met Bone?and?Mineral?Metabolism ??Calcium,?Total?mg/dL?? Calcium,?Corrected?mg/dL ?&#1 60;??Phosphorous?mg/dL??? PTH-Intact,?Plasma?pg/mL ??9.6?02/21/24? 8.6?02/14/24?5.3&#16 0;?02/21/24?400?02/14/24?8.7?02/14/24? 8.9?01/14/24?4.1&#16 0;?02/14/24?217?01/10/24?10.1?02/07/24?8.7?12/13/23?2.8?&#1 60;?02/07/24?601?12/13/23?Vitamin?D?25?Hydroxy?ng/mL? ?Vitamin?D?Analogue? Administrations?Calcimimetics?51.5?12/13/23?0.75?mcg?Vitamin?D??02/25/24??& #160;?-?46.0?09/15/23?0.75?mcg?Vitamin?D??02/23/24??& #160;?-?56.5?06/14/23?1?mcg?Vitamin?D?(Ca?02/21/24??& #160;?-? PTH ?-?PTH?within?target ?-?Bone?and?mineral?metabolism?parameters?reviewed ?-?Calcium?controlled ?-?Phosphorus?controlled 07/28/2023?-?PTH?still?above?target.??Will?increase?calcitriol?to?0.5mcg?qrx.??? 09/01/2023?-?PTH?stable?but?still?above?target.??Will&# 160;increase?calcitriol?to 0.75mcg?qrx,?keeping?a?close?eye?on?calcium.???&#1 60;12/03/2023?-?PTH?within?target, but?significantly?increased?since?last?month.??Will?change&# 160;calcitriol?to?1mcg? on?Mondays?and?continue?0.75mcg?on?Wed.?and?Wed.?12/31/2023?-?Sevelamer previously?held?for?low?phos.??Will?resume?800mg?with&# 160;meals.??Once?phos?is?in range,?will?likely?increase?calcitriol. Nutrition ?Albumin?g/dL? eNPCR?g/kg/day?4.1?02/14/24?? ?0.83?02/14/24?? ?4.0?01/14/24?? ?0.90?01/14/24?? ?4.3?12/13/23?? ?1.12?12/13/23?? ?-?Nutrition?reviewed Home?Medications ?acetaminophen?(acetaminophen) 500?mg,?oral,?2?tablet?three?times?a?day ??allopurinol?(allopurinol) 100?mg,?oral,?1?tablet?once?a?day ??Mt?Low?Dose?Aspirin?(aspirin) 81?mg,?oral,?1?tablet?once?a?day ??benzonatate?(benzonatate) 100?mg,?oral,?1??as?directed ??levetiracetam?(levetiracetam) 250?mg,?oral,?1?tablet?three?times?a?week [POST?Dialysis] ??levetiracetam?(levetiracetam) 500?mg,?oral,?1?tablet?twice?a?day ??levothyroxine?(levothyroxine) 100?mcg,?oral,?1?tablet?once?a?day ??Mucinex?(guaifenesin) 600?mg,?oral,?1?tablet?every?twelve?hours ??pantoprazole?(pantoprazole) 20?mg,?oral,?1?tablet?once?a?day ??Tania-Madiha?(b?complex-vitamin?c-folic?acid) 0.8?mg,?oral,?1?tablet?once?a?day ??sevelamer?carbonate?(sevelamer?carbonate) 800?mg,?oral,?1?tablet?three?times?a?day ??tacrolimus?(tacrolimus) 1?mg,?oral,?1?capsule?twice?a?day ??Veltassa?(patiromer?calcium?sorbitex) 25.2?gram,?oral,?1?packet?once?a?day [take?4?times?a?wk?on?non?dialysis?days,?as?needed?to?reach?desired?K+target.] Vascular?Access?-?Active/Maturing ?Type?Position/Location?Status?Access?ID?CVCatheter-Tunneled?Chest?Active?(In?Use)?[id number]?-?-?&# 160;?-? -?-?-?&# 160;?-? -? Access?Flows ??1391mL?per?min?10/22/21 ??1256mL?per?min?08/29/21 ??1559mL?per?min?08/27/21 ?-?Vascular?access?reviewed ?-?Current?access?is?functioning?well. 05/28/2022?-?PERMANENT?TDC.?? Exam ?-?Vital?signs?reviewed Pulmonary ?-?LUNGS?-?clear Cardiovascular ?-?CV?-?Blood?pressure?noted ?-?CV?-?RRR Ed[place] ?-?EXT?-?No?edema Transplant?Status Topic Exploring?Alternative?Treatment?Options: Kidney?Transplant ?Person?Taught: ?-?Patient ?Additional?Education?Required:?No ?Date?Given:?07/02/2022 Interest?and?Eligibility?(If?changes?are?made,?Please?notify?SW?via?alert?below) ?Date?of?discussion?from?transplant?assessment:?09/08/2023 ?Patient?already?on?transplant?list??No Tobacco?Cessation ??Tobacco?use:?Never?used Vilma,? END OF DOCUMENT
--- OUTSIDE RECORDS SUMMARY | 2024-04-22 10:50 | XMS_ITS ---
Author Name Heath Soloriocy Address [address] [place] [id number] Phone [phone] Organization [facility], NA DOCUMENT DISCLAIMER Multiple document versions may exist, please be sure you review the latest version. The information in the [facility] Progress Note Document represents a providers documented clinical note containing certain health and medical information. It may not contain the complete medical history for the patient and should be independently verified. The represented time in the document is Eastern Time PROVIDER ROUNDING NOTE BASIC Patient:?CHRISTY?ARNOL,?1960,?63y,?M Dialysis?Location:?[place] Attending?Exercise Scientist:?Crystal?Baldemar Service?Date:?10/11/2023 Service?Provider:?Luna?Lyndsey,?APPLICATIONS ANALYST I?met?face?to?face?with?the?patient?today. OVERVIEW The?patient?presented?with?ESRD?on?dialysis Primary?cause?of?renal?failure:?Unspecified?complication?of?kidney?transplant Comments:?10/11/23?-?Stable?treatment.?No?acute?issues. 09/15/23?-?Recent?admission?for?confusion?and???seizure?a ctivity.?Pts?mental?status?back?at?baseline?today.?No?f [...] ??EDW:?69.5 ??Duration:?3:45 ??Calcium:?2.5 ??Bicarb:?35 ??Rx?updated?on:?08/11/2023 TREATMENT?ASSESSMENT BP?Stand?Pre ??10/08/2023:?130/88 ??10/06/2023:?100/45 ??10/04/2023:?129/71 BP?Sit?Pre ??10/08/2023:?117/72 ??10/06/2023:?100/72 ??10/04/2023:?119/66 BP?Stand?Post ??10/08/2023:?137/98 ??10/06/2023:?164/71 ??10/04/2023:?127/85 BP?Sit?Post ??10/08/2023:?116/79 ??10/06/2023:?125/68 ??10/04/2023:?146/95 Tx?Duration ??10/08/2023:?3:50 ??10/06/2023:?3:51 ??10/04/2023:?4:06 Missed?Treatments 0?-?last?30?days 0?-?last?60?days FLUID?ASSESSMENT EDW?(kg) ??10/08/2023:?69.5 ??10/06/2023:?69.5 ??10/04/2023:?69.5 Weight?Pre?(kg) ??10/08/2023:?73.8 ??10/06/2023:?73.0 ??10/04/2023:?74.5 Weight?Post?(kg) ??10/08/2023:?70.4 ??10/06/2023:?70.4 ??10/04/2023:?70.8 PWV?(kg) ??10/08/2023:?0.9 ??10/06/2023:?0.9 ??10/04/2023:?1.3 UF?Rate?(mL/kg/hr) ??10/08/2023:?12.6 ??10/06/2023:?9.6 ??10/04/2023:?12.7 ADEQUACY?ASSESSMENT spKt/V,?URR ??09/15/2023:?1.91,?79.0 ??08/16/2023:?1.83,?79.0 ??07/14/2023:?1.92,?78.0 ACCESS?ASSESSMENT ??Access?Type:?CVCatheter ??Access?SubType:?Tunneled ??Access?Status:?Active?(In?Use)?-?12/01/2021 ??Access?Location:?Chest ??Placed:?09/29/2021 ANEMIA?ASSESSMENT HGB ??10/04/2023:?11.6 ??09/27/2023:?11.7 ??09/20/2023:?12.5 ?? Ferritin ??09/15/2023:?1341.0 ??08/16/2023:?1123.0 ??07/14/2023:?993.0 BMM?ASSESSMENT Phosphorus,?Calcium ??10/04/2023:?4.2,?8.7 ??09/27/2023:?4.0,?8.6 ??09/20/2023:?3.6,?9.1 ?? PTH,?Intact ??09/20/2023:?1035.0 ??09/15/2023:?535.0 ??08/16/2023:?882.0 Vitamin?D?(Calcitriol)?Oral?(mcg) ??10/08/2023:?0.75 ??10/06/2023:?0.75 ??10/04/2023:?0.75 NUTRITION?ASSESSMENT Potassium ??10/04/2023:?5.8 ??09/27/2023:?5.2 ??09/20/2023:?5.1 ?? eNPCR ??09/15/2023:?0.83 ??08/16/2023:?1.01 ??07/14/2023:?1.19 DIAGNOSIS Chief?Complaint:?N18.6?End?stage?renal?disease Patient?data?updated?10/11/2023?at?1:51?PM Signed?By:?Lyndsey,?Luna,?APPLICATIONS ANALYST??on?10/11/2023?1:51:51?PM END OF DOCUMENT
--- OUTSIDE RECORDS SUMMARY | 2024-04-22 10:50 | XMS_ITS ---
Author Name Crystal Mcdermott Address [address] [place] [address] Phone [phone] Organization [facility] e, NA DOCUMENT DISCLAIMER Multiple document versions may exist, please be sure you review the latest version. The information in the [facility] Progress Note Document represents a providers documented clinical note containing certain health and medical information. It may not contain the complete medical history for the patient and should be independently verified. The represented time in the document is Eastern Time PROVIDER ROUNDING NOTE COMP HD PROVIDER?ROUNDING?NOTE?COMP?HD Clinic:?[address] [place] [address] Visit?date:?05/28/2022?00:00?Modality/setting:?IHD CHRISTY?ARNOL?-?Chart?#:?[id number] Method?of?Interaction:?Face?to?face Date?of?Interaction:?09/20/2023 ?-?Patient?is?stable ?-?Medications?and?labs?reviewed. Patient?issues?include: 09/20/2023?-?Recently?had?a?seizure. Prior?Treatment:?09/17/2023? Dialyzer:?180NRe?Optiflux? Dialysate:?2.0?K,?2.5 Ca,?1.0?Mg,?100?Dextrose?(G2251)? Prescribed?Time:?3:45?Avg?BFR:?430?Wt?Gain (kg):?3.60? Actual?Time:?03:51?Avg?DFR:?800?&#16 0;EDW?(kg):?69.50? Volume?Management?Comments: 06/02/2023?-?Euvolemic.??At/below?target?weight.??Decreased EDW?to?70.??? 07/28/2023?-?Euvolemic.??EDW?recently?decreased?based?on&#16 0;post-rx?weights.??No change.?09/01/2023?-?Euvolemic.??Achieving?target weight.??No?change.??? 09/20/2023?-?High?gains?last?2?treatments;?not?usually?the?case.??Euvolemic.? Achieving?target?weight. Adequacy ?spKt/V?eKdrt/V?&#160 ; ???OLC?(Del)?spKtv?URR?%?1.91?09/15/23?? ?1.71?09/15/23?? ?1.70?0 09/17/23?? ?79?09/15/23? ?1.83?08/16/23?? ?1.59?08/16/23?? ?1.88?0 09/15/23?? ?79?08/16/23? ?1.92?07/14/23?? ?1.72?07/14/23?? ?1.88?0 09/10/23?? ?78?07/14/23? ?Potassium,?Serum?mEq/L?Bicarbonate?mEq/L??&# 160;?Creatinine?mg/dL?5.2?09/15/23? 22?09/15/23?11 .40?08/26/20?5.8?09/06/23? 24?08/16/23?&# 160;?-?5.4?08/30/23? 20?07/14/23?&# 160;?-?-?Adequacy?parameters?reviewed Adequacy ?-?Adequacy?target?met ?Sitting?BP?Pre?Sitting BP?Post?Systolic/Diastolic?Systolic/Diastolic?100?/?69??09/17/23?122?/?85??09/17/23?127?/?75??09/15/23?129?/?75??09/15/23?103?/?46??09/10/23?127?/?76??09/10/23?? Blood?Pressure ?-?Blood?pressure?controlled Fluid?Status ?-?Fluid?status?acceptable Interdialytic?Weight?Gain ?-?Interdialytic?weight?gain?acceptable Prescription?Compliance ?-?Prescription?compliance?acceptable ?-?Potassium?controlled 07/28/2023?-?On?Lokelma. Anemia ?HGB?g/dL? Transferrin?Sat.?(Calc)?%?Ferritin?ng/mL&#160 ;?11.8?09/15/23?26?09/15/23?1341 ?09/15/23?? ?12.3?09/06/23?31?08/16/23?1123 ?08/16/23?? ?13.5?08/30/23?31?07/14/23?993 ?07/14/23?? CRISTY?Administrations ??0?mcg?Mircera?07/25/22 ??0?mcg?Mircera?07/11/22 ??0?mcg?Mircera?06/27/22 IV?Iron?Administrations ??100?mg?Venofer?07/02/23 ??100?mg?Venofer?06/30/23 ??100?mg?Venofer?06/28/23 ?-?Anemia?reviewed ?-?Anemia?targets?met Bone?and?Mineral?Metabolism ??Calcium,?Total?mg/dL?? Calcium,?Corrected?mg/dL ?&#1 60;??Phosphorous?mg/dL??? PTH-Intact,?Plasma?pg/mL ??9.1?09/15/23? 9.0?09/15/23?3.6&#16 0;?09/15/23?535?09/15/23?8.9?09/06/23? 8.8?08/16/23?4.2&#16 0;?09/06/23?882?08/16/23?9.2?08/30/23? 8.4?07/14/23?4.6&#16 0;?08/30/23?892?07/14/23?Vitamin?D?25?Hydroxy?ng/mL? ?Vitamin?D?Analogue? Administrations?Calcimimetics?46.0?09/15/23?0.75?mcg?Vitamin?D??09/17/23??& #160;?-?56.5?06/14/23?0.5?mcg?Vitamin?D?(?09/15/23??& #160;?-?64.2?04/12/23?0.5?mcg?Vitamin?D?(?09/10/23??& #160;?-? PTH ?-?PTH?within?target ?-?Bone?and?mineral?metabolism?parameters?reviewed ?-?Calcium?controlled ?-?Phosphorus?controlled 07/28/2023?-?PTH?still?above?target.??Will?increase?calcitriol?to?0.5mcg?qrx.??? 09/01/2023?-?PTH?stable?but?still?above?target.??Will&# 160;increase?calcitriol?to 0.75mcg?qrx,?keeping?a?close?eye?on?calcium. Nutrition ?Albumin?g/dL? eNPCR?g/kg/day?4.1?09/15/23?? ?0.83?09/15/23?? ?4.5?08/16/23?? ?1.01?08/16/23?? ?4.4?07/14/23?? ?1.19?07/14/23?? ?-?Nutrition?reviewed Home?Medications ?acetaminophen?(acetaminophen) 500?mg,?oral,?2?tablet?three?times?a?day ??allopurinol?(allopurinol) 100?mg,?oral,?1?tablet?once?a?day ??Mt?Low?Dose?Aspirin?(aspirin) 81?mg,?oral,?1?tablet?once?a?day ??benzonatate?(benzonatate) 100?mg,?oral,?1??as?directed ??levetiracetam?(levetiracetam) 250?mg,?oral,?1?tablet?three?times?a?week [POST?Dialysis] ??levetiracetam?(levetiracetam) 500?mg,?oral,?1?tablet?twice?a?day ??levothyroxine?(levothyroxine) 100?mcg,?oral,?1?tablet?once?a?day ??Mucinex?(guaifenesin) 600?mg,?oral,?1?tablet?every?twelve?hours ??pantoprazole?(pantoprazole) 20?mg,?oral,?1?tablet?once?a?day ??Tania-Madiha?(b?complex-vitamin?c-folic?acid) 0.8?mg,?oral,?1?tablet?once?a?day ??tacrolimus?(tacrolimus) 1?mg,?oral,?1?capsule?twice?a?day ??Veltassa?(patiromer?calcium?sorbitex) 8.4?gram,?oral,?1?packet?once?a?day [take?8.4?g/day?only?on?non-dialysis?days.?Increase?weekly&# 160;by?8.4g?1?day?as?needed?to?reach?desired?K+target.] Last?Hospitalization ?Admission?Date:?09/10/2023 ?Discharge?Date:?09/14/2023 ?Discharge?Diagnosis: ?-?G40.89?-?Other?seizures Vascular?Access?-?Active/Maturing ?Type?Position/Location?Status?Access?ID?CVCatheter-Tunneled?Chest?Active?(In?Use)?[id number]?-?-?&# 160;?-? -?-?-?&# 160;?-? -? Access?Flows ??1391mL?per?min?10/22/21 ??1256mL?per?min?08/29/21 ??1559mL?per?min?08/27/21 ?-?Vascular?access?reviewed ?-?Current?access?is?functioning?well. 05/28/2022?-?PERMANENT?TDC.?? Exam ?-?Vital?signs?reviewed Pulmonary ?-?LUNGS?-?clear Cardiovascular ?-?CV?-?Blood?pressure?noted ?-?CV?-?RRR Edema ?-?EXT?-?No?edema Transplant?Status Topic Exploring?Alternative?Treatment?Options: Kidney?Transplant ?Person?Taught: ?-?Patient ?Additional?Education?Required:?No ?Date?Given:?07/02/2022 Interest?and?Eligibility?(If?changes?are?made,?Please?notify?SW?via?alert?below) ?Date?of?discussion?from?transplant?assessment:?09/08/2023 ?Patient?already?on?transplant?list??No Tobacco?Cessation ??Tobacco?use:?Never?used Vilma,ROSSANA END OF DOCUMENT
--- OUTSIDE RECORDS SUMMARY | 2024-04-22 10:50 | XMS_ITS ---
Author Name Heath Slooriocy Address [address] [place] [id number] Phone [phone] Organization [facility] e, NA DOCUMENT DISCLAIMER Multiple document versions may exist, please be sure you review the latest version. The information in the [facility] Progress Note Document represents a providers documented clinical note containing certain health and medical information. It may not contain the complete medical history for the patient and should be independently verified. The represented time in the document is Eastern Time PROVIDER ROUNDING NOTE BASIC Patient:?CHRISTY?ARNOL,?1960,?63y,?M Dialysis?Location:?[facility] Attending?Repossessor:?Crystal?Baldemar Service?Date:?11/22/2023 Service?Provider:?Luna?Lyndsey,?HEALTH SAFETY SPECIALIST I?met?face?to?face?with?the?patient?today. OVERVIEW The?patient?presented?with?ESRD?on?dialysis Primary?cause?of?renal?failure:?Unspecified?complication?of?kidney?transplant Comments:?11/10/23?-?Stable?treatment?with?no?acute?issues.&#1 60;States?he?is?feeling?well?on?non?dialysis?days. 10/11/23?-?Stable?treatment.?No?acute?issues. [...] ??EDW:?71 ??Duration:?3:45 ??Calcium:?2.5 ??Bicarb:?35 ??Rx?updated?on:?11/08/2023 TREATMENT?ASSESSMENT BP?Stand?Pre ??11/22/2023:?116/78 ??11/19/2023:?98/67 ??11/15/2023:?92/68 BP?Sit?Pre ??11/22/2023:?120/76 ??11/19/2023:?112/67 ??11/15/2023:?122/78 BP?Stand?Post ??11/22/2023:?122/71 ??11/19/2023:?110/73 ??11/15/2023:?101/62 BP?Sit?Post ??11/22/2023:?127/76 ??11/19/2023:?133/70 ??11/15/2023:?115/68 Tx?Duration ??11/22/2023:?3:55 ??11/19/2023:?3:54 ??11/15/2023:?3:51 Missed?Treatments 0?-?last?30?days 0?-?last?60?days FLUID?ASSESSMENT EDW?(kg) ??11/22/2023:?71.0 ??11/19/2023:?71.0 ??11/15/2023:?71.0 Weight?Pre?(kg) ??11/22/2023:?77.2 ??11/19/2023:?75.5 ??11/15/2023:?76.7 Weight?Post?(kg) ??11/22/2023:?73.7 ??11/19/2023:?72.2 ??11/15/2023:?73.2 PWV?(kg) ??11/22/2023:?2.7 ??11/19/2023:?1.2 ??11/15/2023:?2.2 UF?Rate?(mL/kg/hr) ??11/22/2023:?12.1 ??11/19/2023:?11.7 ??11/15/2023:?12.4 ADEQUACY?ASSESSMENT spKt/V,?URR ??11/15/2023:?1.57,?72.0 ??10/11/2023:?1.61,?74.0 ??09/15/2023:?1.91,?79.0 ACCESS?ASSESSMENT ??Access?Type:?CVCatheter ??Access?SubType:?Tunneled ??Access?Status:?Active?(In?Use)?-?12/01/2021 ??Access?Location:?Chest ??Placed:?09/29/2021 ANEMIA?ASSESSMENT HGB,?TSAT ??11/15/2023:?11.6,?35.0 ??11/08/2023:?11.1,?- ??11/01/2023:?12.0,?- ?? Ferritin ??11/15/2023:?816.0 ??10/11/2023:?1132.0 ??09/15/2023:?1341.0 BMM?ASSESSMENT PTH,?Intact ??11/15/2023:?703.0 ??10/11/2023:?439.0 ??09/20/2023:?1035.0 ?? Calcium,?Phosphorus ??11/15/2023:?8.7,?4.8 ??11/08/2023:?8.7,?4.7 ??11/01/2023:?8.5,?5.6 Vitamin?D?(Calcitriol)?Oral?(mcg) ??11/22/2023:?0.75 ??11/19/2023:?0.75 ??11/15/2023:?0.75 NUTRITION?ASSESSMENT Potassium,?Albumin ??11/15/2023:?5.8,?4.2 ??11/08/2023:?5.5,?- ??11/01/2023:?6.2,?- ?? eNPCR ??11/15/2023:?0.83 ??10/11/2023:?0.87 ??09/15/2023:?0.83 DIAGNOSIS Chief?Complaint:?N18.6?End?stage?renal?disease Patient?data?updated?11/23/2023?at?8:28?AM Signed?By:?Lyndsey,?Luna,?HEALTH SAFETY SPECIALIST??on?11/23/2023?8:28:33?AM END OF DOCUMENT
--- OUTSIDE RECORDS SUMMARY | 2024-04-22 10:50 | XMS_ITS ---
Author Name Heath Soloriocy Address [address] [place] [id number] Phone [phone] Organization [facility], NA DOCUMENT DISCLAIMER Multiple document versions may exist, please be sure you review the latest version. The information in the [facility] Progress Note Document represents a providers documented clinical note containing certain health and medical information. It may not contain the complete medical history for the patient and should be independently verified. The represented time in the document is Eastern Time PROVIDER ROUNDING NOTE BASIC Patient:?CHRISTY?ARNOL,?1960,?63y,?M Dialysis?Location:?[facility] Attending?Stocklayer:?Crystal?Baldemar Service?Date:?02/21/2024 Service?Provider:?Luna?Lyndsey,?HEEL BUFFER I?met?face?to?face?with?the?patient?today. OVERVIEW The?patient?presented?with?ESRD?on?dialysis Primary?cause?of?renal?failure:?Unspecified?complication?of?kidney?transplant Comments:?02/21/24?-?Stable?treatment 02/11/24?-?Stable?dialysis?treatment?with?no?acute?issues&#160 ;or?complaints.?Meeting?EDW.?AVF?functioning?well. 01/24/24?-?Labs,?vital?signs?and?metabolic?parameters?reviewe d.?Stable?treatment?with?no?complaints?or?acute?issues. 01/10/24?-?Stable?dialysis?treatment?with?no?acute?issues or?complaints. 12/27/23?-?Stable?treatment. [...] ??EDW:?71 ??Duration:?3:45 ??Calcium:?2.5 ??Bicarb:?35 ??Rx?updated?on:?12/25/2023 TREATMENT?ASSESSMENT BP?Stand?Pre ??02/18/2024:?130/61 ??02/16/2024:?114/82 ??02/14/2024:?127/72 BP?Sit?Pre ??02/18/2024:?135/76 ??02/16/2024:?108/41 ??02/14/2024:?99/59 BP?Stand?Post ??02/18/2024:?151/87 ??02/16/2024:?130/69 ??02/14/2024:?148/91 BP?Sit?Post ??02/18/2024:?146/83 ??02/16/2024:?127/78 ??02/14/2024:?138/85 Tx?Duration ??02/18/2024:?3:51 ??02/16/2024:?3:47 ??02/14/2024:?3:46 Missed?Treatments 0?-?last?30?days 0?-?last?60?days FLUID?ASSESSMENT EDW?(kg) ??02/18/2024:?71.0 ??02/16/2024:?71.0 ??02/14/2024:?71.0 Weight?Pre?(kg) ??02/18/2024:?72.3 ??02/16/2024:?72.5 ??02/14/2024:?73.8 Weight?Post?(kg) ??02/18/2024:?71.1 ??02/16/2024:?71.0 ??02/14/2024:?70.5 PWV?(kg) ??02/18/2024:?0.1 ??02/16/2024:?0.0 ??02/14/2024:?-0.5 UF?Rate?(mL/kg/hr) ??02/18/2024:?4.4 ??02/16/2024:?5.6 ??02/14/2024:?12.4 ADEQUACY?ASSESSMENT spKt/V,?URR ??02/14/2024:?1.52,?71.0 ??01/14/2024:?1.49,?73.0 ??12/13/2023:?1.55,?72.0 ACCESS?ASSESSMENT ??Access?Type:?CVCatheter ??Access?SubType:?Tunneled ??Access?Status:?Active?(In?Use)?-?12/01/2021 ??Access?Location:?Chest ??Placed:?09/29/2021 ANEMIA?ASSESSMENT HGB,?TSAT ??02/14/2024:?12.9,?35.0 ??02/07/2024:?12.9,?- ??01/31/2024:?12.7,?- ?? Ferritin ??02/14/2024:?681.0 ??01/14/2024:?652.0 ??12/13/2023:?663.0 BMM?ASSESSMENT PTH,?Intact ??02/14/2024:?400.0 ??01/10/2024:?217.0 ??12/13/2023:?601.0 ?? Calcium,?Phosphorus ??02/14/2024:?8.7,?4.1 ??02/07/2024:?10.1,?2.8 ??01/31/2024:?9.9,?3.5 Vitamin?D?(Calcitriol)?Oral?(mcg) ??02/18/2024:?0.75 ??02/16/2024:?0.75 ??02/14/2024:?1.0 NUTRITION?ASSESSMENT Potassium,?Albumin ??02/14/2024:?5.4,?4.1 ??02/07/2024:?5.5,?- ??01/31/2024:?5.5,?- ?? eNPCR ??02/14/2024:?0.83 ??01/14/2024:?0.9 ??12/13/2023:?1.12 DIAGNOSIS Chief?Complaint:?N18.6?End?stage?renal?disease Patient?data?updated?02/21/2024?at?12:53?PM Signed?By:?Lyndsey,?Luna,?HEEL BUFFER??on?02/21/2024?12:53:20 PM END OF DOCUMENT
--- OUTSIDE RECORDS SUMMARY | 2024-04-22 10:51 | XMS_ITS | Encounter Summary ---
Author Organization [facility] [place] [address] Care Team Providers Care Dry Transfer Man Name Role Phone Ileana Azevedo CATRACHITO Primary Care Provider [phone] Encounter Details Date Type Department Care Team (Late st Contact Info) Description 09/10/2023 [place] [id number] Tim Collins MD [facility] [place] [address] Social History Tobacco Use Types Packs/Day Years Used Date Smoking Tobacco: Former Cigarettes 0.3 1.5 1 08/05/1998 - 12/03/2000 Smokeless Tobacco: Former Quit: 04/14/2001 Alcohol Use Standard Drinks/Week Comments No 0 (1 standard drink = 0.6 oz pur e alcohol) [facility] Inpatient Questions Answer Date Recorded Does Anyone Try to Keep You From Having Contact with Others or Doing Things Outside Your Home? no 12/24/2022 Feels Threatened by Someone no 12/10 Feels Unsafe at Home or Work/School no 12/24/2022 Physical Signs of Abuse Present no 12/24/2022 Sex and Gender Information Value Date Recorded Sex Assigned at Not on file Gender Identity Not on file Sexual Orientation Not on file documented as of this encounter Miscellaneous Notes * Telephone Encounter - Tim Collins MD - 09/11/2023 5:46 PM EST MD at [facility] requested transfer for this 63 yo M. See teleneurology consult. Tx denied due to capacity. Critical care level not needed and that was only level we had for transfer documented in this encounter Plan of Treatment Not on file documented as of this encounter Visit Diagnoses Not on filedocumented in this encounter Care Teams Dry Transfer Man Relationship Specialty Start Date End Date Ileana Azevedo APRN [address] [place] [address] PCP - General Family Medicine 10/21/22 documented as of this encounter
--- OUTSIDE RECORDS SUMMARY | 2024-04-22 10:51 | XMS_ITS | Encounter Summary ---
Author Organization [facility] Address [facility] [place] [address] Care Team Providers Care Crayon Painter Name Role Phone Ileana Azevedo APRN Primary Care Provider [phone] Encounter Details Date Type Department Care Team (Late st Contact Info) Description 09/10/2023 6:15 PM EST Ancillary Procedure Radiology Library at [facility] [place] [address] Tim Collins MD [facility] [address] Social History Tobacco Use Types Packs/Day Years Used Date Smoking Tobacco: Former Cigarettes 0.3 1.5 1 08/05/1998 - 12/03/2000 Smokeless Tobacco: Former Quit: 04/14/2001 Alcohol Use Standard Drinks/Week Comments No 0 (1 standard drink = 0.6 oz pur e alcohol) IPV Inpatient Questions Answer Date Recorded Does Anyone [...] on file documented as of this encounter Plan of Treatment Not on file documented as of this encounter Procedures Procedure Name Priority Date/Time Associated Diagnosis Comments FILM LIBRARY STORAGE ONLY CT HEAD AND SPINE Routine 09/10/2023 6:05 PM EST documented in this encounter Results * Film Library- Storage Only CT Head And Spine (09/10/2023 6:05 PM EST) Narrative RAD - 09/10/2023 6:05 PM EST This exam is auto-finalizing. It's purpose is for storage only. Tim Collins MD IMG FILM LIBRARY O RDERABLES Performing Organization Address City/State/[facility] Co de Phone Number [place], [place] documented in this encounter Visit Diagnoses Not on filedocumented in this encounter Care Teams Crayon Painter Relationship Specialty Start Date End Date Ileana Azevedo APRN [address] [place] [address] PCP - General Family Medicine 10/21/22 documented as of this encounter
--- OUTSIDE RECORDS SUMMARY | 2024-04-22 10:51 | XMS_ITS | Encounter Summary ---
[place] [address] Care Team Providers Care Logging Equipment Mechanic Name Role Phone Ileana Azevedo APRN Primary Care Provider [phone] Encounter Details Date Type Department Care Team (Late st Contact Info) Description 01/19/2024 External Results [place] [address] Lalitha Mcfarlane, DATA REVIEWER Social History Tobacco Use Types Packs/Day Years [...] Procedure Name Priority Date/Time Associated Diagnosis Comments SARS-COV-2 PCR ([facility]) Routine 09/10/2023 documented in this encounter Results * COVID-19 PCR ([place]) (09/10/2023) SARS-CoV-2 PCR Not Detected Influenza A PCR Not Detected Influenza B PCR Not Detected RSV PCR Not Detected Nasopharyngeal Swab SPECIMEN FROM NASOPHARYNGEAL STRUCTURE / Unknown 09/10/2023 Historical Provider MICROBIOLOGY - NERAL ORDERABLES documented in this encounter Visit Diagnoses Not on filedocumented in this encounter Care Teams Logging Equipment Mechanic Relationship Specialty Start Date End Date Ileana Azevedo, CATRACHITO [address] [place] [address] PCP - General Family Medicine 10/21/22 documented as of this encounter
--- OUTSIDE RECORDS SUMMARY | 2024-04-22 10:51 | XMS_ITS | Clinical Summary ---
Author Organization [facility] Address [facility] [place] [address] Care Team Providers Care Auto Body Customizer Name Role Phone Ileana Azevedo APRN Primary Care Provider [phone] Allergies Active Allergy Reactions Criticality Noted Date Comments Benazepril Hcl Codeine Other (See Comments) 11/19/2015 Patient does not know reaction Hydrochlorothiazide Pollen Extracts Sneezing/runny nose Medications Medication Sig Dispensed Refills Start Date End Date Status acetaminophen (TYLENOL) 500 mg Tablet Take 2 tablets by mouth every 6 hours. 30 tablet 1 2018 Active levETIRAcetam (KEPPRA) 500 mg Tablet Take 1 tablet by mouth 2 times daily. 60 tablet 2018 Active levothyroxine (SYNTHROID) 100 mcg Tablet Take 1 tablet by mouth daily. 90 tablet 2018 Active aspirin 81 mg Tablet, Delayed Release (E.C.) Take 1 tablet by mouth daily. 30 tablet 3 12/14/2018 Active pantoprazole EC (Protonix) [address] tablet Take 1 tablet by mouth daily. 10/21/2022 Active vitamin B Complex-vitamin C-folic Acid (Tania-julio) 0.8 mg Tablet Take 1 tablet by mouth daily. 90 tablet 3 10/22/2022 Active allopurinoL (Zyloprim) 100 mg tablet Take 1 tablet by mouth daily. 30 tablet 11 12/25/2022 Active Veltassa oral powder packet MIX 1 PACKET DIRECTED THEN TAKE BY MOUTH FOUR TIMES A WEEK (SUN/MON/WED/WED) ON NON-DIALYSIS DAYS 16 packet 11 11/09/2023 Active tacrolimus (Prograf) 1 mg IR capsuleIndications:E SRD (end stage renal disease) on dialysis 1 CAP BY MOUTH TWICE A DAY 60 capsule 11 12/07/2023 Active sevelamer carbonate (Renvela) 800 mg tablet 1 TAB BY MOUTH THREE TIMES A DAY WITH MEALS 90 tablet 11 01/11/2024 Active amoxicillin (Amoxil) 500 mg capsule 10/22/2023 Active benzonatate (Tessalon) 100 mg capsule Take 100 mg by mouth Twice daily. 09/11/2023 Active Active Problems Patient Care Coordination No te Formatting of this note migh t be different from the original. Benjie Pryor phone [phone] Problem Noted Date Diagnosed Date Altered mental status 09/11/2023 Seizure 09/11/2023 Hyperkalemia 10/19/2022 ESRD (end stage renal disease) on dialysis 05/22 Failed kidney transplant 07/19/2018 CKD (chronic kidney disease) stage 5, GFR less than 15 ml/min 07/19/2018 Hypertension secondary to other renal disorders 07/19/2018 Renal osteodystrophy 07/19/2018 RTA (renal tubular acidosis) 07/19/2018 SDH (subdural hematoma) 06/29/2018 Anemia of chronic renal failure 06/20/2018 Subarachnoid hemorrhage 06/02/2018 Primary papillary carcinoma of left kidney 07/15 Gastrointestinal hemorrhage 05/19/2017 Bradycardia 05/19/2017 Left renal mass 05/19/2017 Weight loss 05/11/2017 Prophylactic immunotherapy 12/07/2016 intermission coordinator current use of immunosuppressive drug 12/07/2016 H/O kidney transplant 12/07/2016 Squamous cell carcinoma of skin of other parts o f face 02/05/2016 Atopic rhinitis 11/21/2015 Injury of head 11/21/2015 Non-neoplastic nevus 11/21/2015 Varicose veins of lower extremities 11/21/2015 Rosacea 11/07/2013 Acne rosacea 09/05/2013 Colon polyp 05/24/2012 BCC (basal cell carcinoma of skin) 03/23/2012 IgA nephropathy 01/20/2011 Overview (01/20/2011): Recurrent in the transplant Epilepsy Gout Hypertension Resolved Problems Problem Noted Date Diagnosed Date Resolved Date Increased anion gap metabolic acidosis 07/31/2018 08/03/2018 Hypernatremia 07/30/2018 08/03/2018 Hemorrhagic shock 04/07/2018 05/17/2018 TRISTIAN (acute kidney injury) 05/11/2017 Left leg DVT 06/06/2021 Overview (04/10/2012): Encounters Date Type Department Care Team Description 02/02/2024 Orders Only [place] [address] Lalitha Mcfarlane CMA from Last 3 Months Immunizations Name Administration Dates Next Due Hepatitis B, Unspecified Formulation 10/31/2001 Influenza (FluMist) Quadriva lent, Intranasal LIVE 04/06/2012,04/08/2011,04/29/2010 Influenza PF, Split 03/12/2016 Influenza Quadrivalent with Preservative 015,03/28/2013 Influenza Trivalent w/Preservative 04/20/2013 Influenza Vaccine, Whole 04/09/2009,06/11/2006 Pneumococcal 13-Valent Conju gate (Prevnar 13) 05/20/2016 Pneumococcal 23-Valent Polys accharide (Pneumovax 23) 05/23/2013 Td Adult (Decavac, Tenivac) 05/09/2015, 6 Tdap (Adacel, Boostrix) 11/26/2016,05/09/2015 Family History Medical History Relation Comments Pancreatitis Father Relation Status Comments Father Social History Tobacco Use Types Packs/Day Years Used Date Smoking Tobacco: Former Cigarettes 0.3 1.5 1 08/05/1998 - 12/03/2000 Smokeless Tobacco: Former Quit: 04/14/2001 Tobacco Cessation:Counseling Given: Not Answered Alcohol Use Standard Drinks/Week Comments No 0 (1 standard drink = 0.6 oz pur e alcohol) [facility] Inpatient Questions Answer Date Recorded Does Anyone [...] on file Sexual Orientation Not on file Last Filed Vital Signs Vital Sign Reading Time Taken Comments Blood Pressure 105/70 12/25/2022 1:44 PM EDT Pulse 50 12/25/2022 11:22 AM EDT Temperature 36.8 ??C (98.2 ??F) 12/25/2022 11:53 AM E DT Respiratory Rate 16 12/25/2022 11:53 AM EDT Oxygen Saturation 99% 12/25/2022 1:44 PM EDT Inhaled Oxygen Concentration - - Weight 74.5 kg (164 lb 3.9 oz) 12/25/2022 5:00 A M EDT Height 177.8 cm (5' 10) 12/24/2022 9:40 AM EDT Body Mass Index 23.57 12/24/2022 9:40 AM EDT Plan of Treatment Health Maintenance Due Date Last Done Comments CT Colonography 1961 Colonoscopy 1961 Colorectal Cancer Screening 1961 FIT DNA 1961 FIT 1961 Sigmoidoscopy (10 year) with FIT yearly 1961 Sigmoidoscopy 1961 HIV screen 1979 Hepatitis C Screening 1979 Zoster vaccine (1 of 2) 1980 Pneumococcal Vaccine: At-Ris k 5-64yrs (3 of 3 - PPSV23 or PCV20) 05/23/2018 05/20/2016, 05/23/2013 Lipid Screening 11/30/2023 11/29/2018, 02/2019, 06/07/2018, Additional history exists Covid-19 Vaccine (1 - 2022-2 4 season) 2024 Influenza (Flu) vaccine (1 o f 1 - Influenza standard series) 03/12/2024 03/12/2016, 02/08/2015, 04/20/2013, Additional history exists Tetanus/Diphtheria/Pertussis Vaccines (4 - Td or Tdap) 11/26/2026 11/26/2016, 05/09/2015, 05/09/2015, Additional history exists Diabetes Screening (HgbA1C o r Glucose) Discontinued 12/25/2022, 12/24/2022, 12/24/2022, Additional history exists Medical Devices Implanted Type Area Rotary Shear Cutter Device Identifier Shelf Expiration Date Model / Serial / Lot Patch,Biol,Xeno sure,.8x8cm ([id number]) - [id number] Implanted:Qty: 1 on 04/06/2018 by Lida Peter MD at [facility] IMPLANTS Arm [employer] - [employer] 09/08/2023 [id number] / 0 / [id number] Graft,Acuseal,T pr,[id number] ([id number]) - [id number] Implanted:Qty: 1 on 12/13/2018 by Mary Garay MD at [facility] IMPLANTS Right: Arm [employer] 02/05/2021 [id number] / [id number] / Graft Vascular [id number] Straight Heparin Coated Standard ([id number]) - [id number] Implanted:Qty: 1 on 04/03/2021 by Odalis Elias MD at [facility] IMPLANTS Left: Arterial [employer] [id number] 09/20/2024 [id number] / [id number] / Description:Left AV Hemodial ysis Graft Placement Graft Vascular [id number] Straight Heparin Coated Standard ([id number]) - [id number] Implanted:Qty: 1 on 05/22/2021 by Odalis Elias MD at [facility] IMPLANTS Right: Arterial [employer] [id number] 12/10/2024 [id number] / [id number] / Description:AV fistula graft Implants-10/11/19 Implanted:Qty: 1 on 10/10/2021 by Walt Lin MD IMPLANTS Right: Leg 03/17/2024 [id number] / [id number] / Description:Viabahn 7 mm x 5 cm implanted into the right vein/graft anastamosis Stent Graft [id number] Jacky Ho ([id number]) (Autoreq)-2021 Implanted:Qty: 1 on 11/05/2021 by Walt Lin MD IMPLANTS Right: Vein [employer] 06/15/2022 [id number] 02A / [id number] / Description:Outflow veinous segment of AV graft per Delia Procedures Procedure Name Priority Date/Time Associated Diagnosis Comments BASIC METABOLIC PANEL Routine 12/25/2022 1:06 AM EDT LIPID PANEL (REFLEX DIRECT LDL) STAT 11/29/2018 9:45 AM EDT H/O kidney transplant from Last 3 Months or Most Recently Relevant to Health Maintenance Results * (ABNORMAL) Basic Metabolic Panel (non-fasting) (12/25/2022 1:06 AM EDT) Glucose 116 65 - 199 mg/dL [facility] Comment:Diabetes: >=200 mg/d L plus symptoms Blood Urea Nitrogen 51(H) 10 - 20 mg/dL [facility] Creatinine 9.99(H) 0.80 - 1.50 mg/dL [facility] Sodium 137 135 - 145 mmol/L [facility] Potassium 4.9 3.5 - 5.0 mmol/L [facility] Comment: Please note: ??Patients with WBC >100,000 may have falsely elevated Potassium levels. ??For accurate Potassium quantification in these patients send serum separator tube (gold top) for subsequent determinations. ??Contact the Clinical Chemistry Laboratory if there are any questions. Chloride 95(L) 98 - 107 mmol/L [facility] Carbon Dioxide 26 22 - 31 mmol/L [facility] Anion Gap 16(H) 5 - 15 mmol/L [facility] Calcium 9.1 8.5 - 10.5 mg/dL [facility] Est Glomerular Filtration Rate 5(L) >=60 mL/min/1. 73 m?? [facility] Comment: This patient's estimated GFR was calculated using the 2020 CKD-EPI equation. The estimated GFR can vary from the measured GFR by up to 30% in the absence of rapidly changing kidney function. Assessment of the estimated GFR is not appropriate when creatinine concentrations are rapidly changing. For clinical situations in which a more precise estimate of GFR is necessary, consider alternative methods of GFR estimation such as a 24-hour urine creatinine clearance. Assignment of CKD stage 1-5 for patients with an eGFR near the transition point between stages may be based on clinical assessment of muscle mass and symptoms in addition to eGFR. Blood 12/25/2022 1:06 AM EDT 12/25/2022 1:13 AM EDT Narrative Resulting Agency Comment Spec In Lab Naz Ginna Colunga APRN CHEMISTRY ORDERABLES [facility] [place] [address] * Lipid Panel (11/29/2018 9:45 AM EDT) Cholesterol, Total 162 mg/dL [facility] Comment: Lower Risk: <200 mg/dL Average Risk: 200-239 mg/dL Higher Risk: >hl=369 mg/dL Triglyceride 103 mg/dL [facility] Comment: Average Risk/Lower Risk: <150 mg/dL Borderline High Risk: 150-199 mg/dL High Risk: 200-499 mg/dL Very High Risk: >hp=364 mg/dL HDL Cholesterol 34 mg/dL [facility] Comment: Males: ?? Higher Risk: <40 mg/dL Females: ?? HIgher Risk: <50 mg/dL LDL Cholesterol 107 mg/dL [facility] Comment: Lowest Risk: <100 mg/dL Lower Risk: 100-129 mg/dL Borderline High Risk: 130-159 mg/dL High Risk: 160-189 mg/dL Very High Risk: >dd=650 mg/dL Cholesterol/HDL Ratio 4.8 ratio [facility] Lipid Interpretation See Note [facility] Comment: Lipid management should be guided by a patient? s ASCVD risk, goals and preferences. ACC/AHA Guidelines recommend high intensity statin if clinical ASCVD or LDL greater than or equal to 190 mg/dL. http://SocialThreaderurl.com/WLK-DSV-Eqyjncxfp Adults aged 40-75 with LDL 70-189 mg/dL should have their 10 year ASCVD risk estimated with the ACC/AHA ASCVD risk clinic office manager http://tools.acc.org/OAIME-Khfh-Owfqncpfw/ Statin should be discussed if risk greater than or equal to 7.5% in non-diabetics. With diabetes, moderate intensity statin is recommended if risk less than 7.5%, high intensity if risk greater than or equal to 7.5%. Annual lipid monitoring on statins is not necessary. Evaluate secondary causes of Triglycerides greater than 500 mg/dL or LDL greater than 190 mg/dL: See table 6 of ACC/AHA Guideline. Lifestyle modification is a critical component of ASCVD risk reduction. 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 Yes PRE Arrest Intubation Permitted? No * Attempt Cardiopulmonary Resuscitation - Inpatient Date Activated Date Inactivated Comments 12/24/2022 1:47 PM 12/24/2022 5:57 PM Question Answer Comments Code Status decision made by: Patient * Do NOT Attempt CPR - Inpatient Date Activated Date Inactivated Comments 10/19/2022 9:33 PM 10/21/2022 5:27 PM Question Answer Comments Code Status decision made by: Healthcare Agent ( DPOA) Name (and relationship if needed): Lucas, brother Independent of Code Status d ecision, are there any PRE Arrest limitations (Intubation, Pressors, Cardioversion / Pacing, etc)? No Per policy, patient may rece neeru all applicable life support PRE arrest: Acknowledged * Attempt Cardiopulmonary Resuscitation - Inpatient Date Activated Date Inactivated Comments 10/19/2022 7:48 PM 10/19/2022 9:33 PM Question Answer Comments Code Status decision made by: Patient * Attempt Cardiopulmonary Resuscitation - Inpatient Date Activated Date Inactivated Comments 10/14/2022 8:27 AM 10/15/2022 4:38 AM Question Answer Comments Code Status decision made by: Patient Healthcare Agents on File Name Relationship Healthcare Agent Relationshi p Communication Lucas Cheung Health Care Agent Care Teams Auto Body Customizer Relationship Specialty Start Date End Date Ileana Azevedo, COOKING TEACHER [address] [place] [address] PCP - General Family Medicine 10/21/22
--- OUTSIDE RECORDS SUMMARY | 2024-04-22 10:51 | XMS_ITS | Encounter Summary ---
Author Organization [facility] Address [facility] [place] [address] Care Team Providers Care Cereal Chemist Name Role Phone Ileana Azevedo APRN Primary Care Provider [phone] Encounter Details Date Type Department Care Team (Late st Contact Info) Description 09/10/2023 6:10 PM EST Ancillary Procedure Radiology Library at [facility] [place] [address] Tim Collins MD [facility] [place] [address] Social History Tobacco Use Types Packs/Day Years [...] Associated Diagnosis Comments FILM LIBRARY STORAGE ONLY DX CHEST Routine 09/10/2023 6:05 PM EST documented in this encounter Results * Film Library- Storage Only DX Chest (09/10/2023 6:05 PM EST) Narrative RAD - 09/10/2023 6:05 PM EST This exam is auto-finalizing. It's purpose is for storage only. Tim Collins MD IMG FILM LIBRARY O RDERABLES Performing Organization Address City/State/[facility] Co de Phone Number [place], [place] documented in this encounter Visit Diagnoses Not on filedocumented in this encounter Care Teams Cereal Chemist Relationship Specialty Start Date End Date Ileana Azevedo APRN [address] [place] [address] PCP - General Family Medicine 10/21/22 documented as of this encounter
--- OUTSIDE RECORDS SUMMARY | 2024-04-22 10:51 | XMS_ITS ---
Author Name Crystal Mcdermott Address [address] [place] [address] Phone [phone] Organization [facility] e, NA DOCUMENT DISCLAIMER Multiple document versions may exist, please be sure you review the latest version. The information in the [facility] Emergency Department Progress Note Document represents a providers documented clinical note containing certain health and medical information. It may not contain the complete medical history for the patient and should be independently verified. The represented time in the document is Eastern Time PROVIDER ROUNDING NOTE COMP HD PROVIDER?ROUNDING?NOTE?COMP?HD Clinic:?[address] [place] [address] Visit?date:?05/28/2022?00:00?Modality/setting:?IHD CHRISTY?ARNOL?-?Chart?#:?[id number] Method?of?Interaction:?Face?to?face Date?of?Interaction:?02/02/2024 ?-?Patient?is?stable ?-?Medications?and?labs?reviewed. Patient?issues?include: 09/20/2023?-?Recently?had?a?seizure. Prior?Treatment:?01/31/2024? Dialyzer:?180NRe?Optiflux? Dialysate:?2.0?K,?2.5 Ca,?1.0?Mg,?100?Dextrose?(G2251)? Prescribed?Time:?3:45?Avg?BFR:?450?Wt?Gain (kg):?1.20? Actual?Time:?03:47?Avg?DFR:?800?&#16 0;EDW?(kg):?71.00? Volume?Management?Comments: 06/02/2023?-?Euvolemic.??At/below?target?weight.??Decreased EDW?to?70.??? 07/28/2023?-?Euvolemic.??EDW?recently?decreased?based?on&#16 0;post-rx?weights.??No change.?09/01/2023?-?Euvolemic.??Achieving?target weight.??No?change.??? 09/20/2023?-?High?gains?last?2?treatments;?not?usually?the?case.??Euvolemic.? Achieving?target?weight.?10/29/2023?-?Continues?to?have?high?gains.??Not achieving?target?weight.??EDW?changed?to?70;?will?try&# 160;to?gently?challenge.??? 12/03/2023?-?Euvolemic.??Achieving?target?weight.??No?change.?12/31/2023?- Fluid?gains?have?increased?somewhat.??Achieving?target?weight.??No?change.??? 02/02/2024?-?Euvolemic.??Achieving?target?weight.??No?change. Adequacy ?spKt/V?eKdrt/V?&#160 ; ???OLC?(Nilo)?spKtv?URR?%?1.49?01/14/24?? ?1.31?01/14/24?? ?1.69?0 01/31/24?? ?73?01/14/24? ?1.55?12/13/23?? ?1.35?12/13/23?? ?1.35?0 01/28/24?? ?72?12/13/23? ?1.57?11/15/23?? ?1.35?11/15/23?? ?1.49?0 01/26/24?? ?72?11/15/23? ?Potassium,?Serum?mEq/L?Bicarbonate?mEq/L??&# 160;?Creatinine?mg/dL?5.5?01/31/24? 27?01/14/24?8. 82?01/14/24?5.4?01/24/24? 22?12/13/23?12 .04?12/13/23?5.5?01/17/24? 22?11/15/23?11 .40?08/26/20?-?Adequacy?parameters?reviewed Adequacy ?-?Adequacy?target?met ?Sitting?BP?Pre?Sitting BP?Post?Systolic/Diastolic?Systolic/Diastolic?? ?158?/?100??01/31/24?128?/?68? 01/31/24?95?/?65??01/28/24?146?/?88 ?01/28/24?118?/?56??01/26/24?127?/?82??01/26/24?? Blood?Pressure ?-?Blood?pressure?controlled Fluid?Status ?-?Fluid?status?acceptable Interdialytic?Weight?Gain ?-?Interdialytic?weight?gain?acceptable Prescription?Compliance ?-?Prescription?compliance?acceptable ?-?Potassium?controlled 07/28/2023?-?On?Lokelma.?10/29/2023?-?BP?not&#1 60;always?well?controlled.??Will try?to?gently?challenge?weight,?revisit?fluid?restriction,?and?see?if?that?will bring?the?BP?into?range.?12/03/2023?-?K+?slightly?high.??On?2K?bath?and Lokelma.??Will?continue?to?monitor. Anemia ?HGB?g/dL? Transferrin?Sat.?(Calc)?%?Ferritin?ng/mL&#160 ;?12.7?01/31/24?37?01/14/24?652 ?01/14/24?? ?12.7?01/24/24?33?12/13/23?663 ?12/13/23?? ?13.5?01/17/24?35?11/15/23?816 ?11/15/23?? CRISTY?Administrations ??0?mcg?Mircera?07/25/22 ??0?mcg?Mircera?07/11/22 ??0?mcg?Mircera?06/27/22 IV?Iron?Administrations ??0?mg?Venofer?12/03/23 ??0?mg?Venofer?11/26/23 ??100?mg?Venofer?07/02/23 ?-?Anemia?reviewed ?-?Anemia?targets?met Bone?and?Mineral?Metabolism ??Calcium,?Total?mg/dL?? Calcium,?Corrected?mg/dL ?&#1 60;??Phosphorous?mg/dL??? PTH-Intact,?Plasma?pg/mL ??9.9?01/31/24? 8.9?01/14/24?3.5&#16 0;?01/31/24?217?01/10/24?9.0?01/24/24? 8.7?12/13/23?4.1&#16 0;?01/24/24?601?12/13/23?9.8?01/17/24? 8.5?11/15/23?5.1&#16 0;?01/17/24?703?11/15/23?Vitamin?D?25?Hydroxy?ng/mL? ?Vitamin?D?Analogue? Administrations?Calcimimetics?51.5?12/13/23?1?mcg?Vitamin?D?(Ca?01/31/24??& #160;?-?46.0?09/15/23?0.75?mcg?Vitamin?D??01/28/24??& #160;?-?56.5?06/14/23?0.75?mcg?Vitamin?D??01/26/24??& #160;?-? PTH ?-?PTH?within?target ?-?Bone?and?mineral?metabolism?parameters?reviewed ?-?Calcium?controlled ?-?Phosphorus?controlled 07/28/2023?-?PTH?still?above?target.??Will?increase?calcitriol?to?0.5mcg?qrx.??? 09/01/2023?-?PTH?stable?but?still?above?target.??Will&# 160;increase?calcitriol?to 0.75mcg?qrx,?keeping?a?close?eye?on?calcium.???&#1 60;12/03/2023?-?PTH?within?target, but?significantly?increased?since?last?month.??Will?change&# 160;calcitriol?to?1mcg? on?Mondays?and?continue?0.75mcg?on?Wed.?and?Wed.?12/31/2023?-?Sevelamer previously?held?for?low?phos.??Will?resume?800mg?with&# 160;meals.??Once?phos?is?in range,?will?likely?increase?calcitriol. Nutrition ?Albumin?g/dL? eNPCR?g/kg/day?4.0?01/14/24?? ?0.90?01/14/24?? ?4.3?12/13/23?? ?1.12?12/13/23?? ?4.2?11/15/23?? ?0.83?11/15/23?? ?-?Nutrition?reviewed Home?Medications ?acetaminophen?(acetaminophen) 500?mg,?oral,?2?tablet?three?times?a?day ??allopurinol?(allopurinol) 100?mg,?oral,?1?tablet?once?a?day ??Mt?Low?Dose?Aspirin?(aspirin) 81?mg,?oral,?1?tablet?once?a?day ??benzonatate?(benzonatate) 100?mg,?oral,?1??as?directed ??levetiracetam?(levetiracetam) 250?mg,?oral,?1?tablet?three?times?a?week [POST?Dialysis] ??levetiracetam?(levetiracetam) 500?mg,?oral,?1?tablet?twice?a?day ??levothyroxine?(levothyroxine) 100?mcg,?oral,?1?tablet?once?a?day ??Mucinex?(guaifenesin) 600?mg,?oral,?1?tablet?every?twelve?hours ??pantoprazole?(pantoprazole) 20?mg,?oral,?1?tablet?once?a?day ??Tania-Madiha?(b?complex-vitamin?c-folic?acid) 0.8?mg,?oral,?1?tablet?once?a?day ??sevelamer?carbonate?(sevelamer?carbonate) 800?mg,?oral,?1?tablet?three?times?a?day ??tacrolimus?(tacrolimus) 1?mg,?oral,?1?capsule?twice?a?day ??Veltassa?(patiromer?calcium?sorbitex) 25.2?gram,?oral,?1?packet?once?a?day [take?4?times?a?wk?on?non?dialysis?days,?as?needed?to?reach?desired?K+target.] Vascular?Access?-?Active/Maturing ?Type?Position/Location?Status?Access?ID?CVCatheter-Tunneled?Chest?Active?(In?Use)?[id number]?-?-?&# 160;?-? -?-?-?&# 160;?-? -? Access?Flows ??1391mL?per?min?10/22/21 ??1256mL?per?min?08/29/21 ??1559mL?per?min?08/27/21 ?-?Vascular?access?reviewed ?-?Current?access?is?functioning?well. 05/28/2022?-?PERMANENT?TDC.?? Exam ?-?Vital?signs?reviewed Pulmonary ?-?LUNGS?-?clear Cardiovascular ?-?CV?-?Blood?pressure?noted ?-?CV?-?RRR Edema ?-?EXT?-?No?edema Transplant?Status Topic Exploring?Alternative?Treatment?Options: Kidney?Transplant ?Person?Taught: ?-?Patient ?Additional?Education?Required:?No ?Date?Given:?07/02/2022 Interest?and?Eligibility?(If?changes?are?made,?Please?notify?SW?via?alert?below) ?Date?of?discussion?from?transplant?assessment:?09/08/2023 ?Patient?already?on?transplant?list??No Tobacco?Cessation ??Tobacco?use:?Never?used Crystal?ROSSANA Mcdermott END OF DOCUMENT
--- OUTSIDE RECORDS SUMMARY | 2024-04-22 10:51 | XMS_ITS | Encounter Summary ---
Author Organization [facility] Address [facility] [place] [address] Care Team Providers Care Mainspring Strip Inspector Name Role Phone Ileana Azevedo APRN Primary Care Provider [phone] Encounter Details Date Type Department Care Team (Late st Contact Info) Description 09/10/2023 4:25 PM EST Telehealth [place] [address] Telehealth, Neurology None Social History Tobacco Use Types Packs/Day Years [...] on filedocumented in this encounter Care Teams Mainspring Strip Inspector Relationship Specialty Start Date End Date Ileana Azevedo APRN [address] [place] [address] PCP - General Family Medicine 10/21/22 documented as of this encounter
--- OUTSIDE RECORDS SUMMARY | 2024-04-22 10:51 | XMS_ITS | Encounter Summary ---
Author Organization [facility] Address [facility] [place] [address] Care Team Providers Care Weight Tester Name Role Phone Ileana Azevedo APRN Primary Care Provider [phone] Encounter Details Date Type Department Care Team (Late st Contact Info) Description 09/10/2023 6:20 PM EST Ancillary Procedure Radiology Library at [facility] [place] [address] Tim Collins MD [facility] [place] [address] Social History Tobacco Use Types Packs/Day Years [...] Comments FILM LIBRARY STORAGE ONLY CT HEAD Routine 09/10/2023 6:05 PM EST documented in this encounter Results * Film Library- Storage Only CT Head (09/10/2023 6:05 PM EST) Narrative RAD - 09/10/2023 6:05 PM EST This exam is auto-finalizing. It's purpose is for storage only. Tim Collins MD IMG FILM LIBRARY O RDERABLES Performing Organization Address City/State/[facility] Co de Phone Number [place], [place] documented in this encounter Visit Diagnoses Not on filedocumented in this encounter Care Teams Weight Tester Relationship Specialty Start Date End Date Ileana Azevedo APRN [address] [place] [address] PCP - General Family Medicine 10/21/22 documented as of this encounter
--- OUTSIDE RECORDS SUMMARY | 2024-04-22 10:51 | XMS_ITS | Encounter Summary ---
[place] [address] Care Team Providers Care Lamination Machine Operator Name Role Phone Roberto CarlosIleana meléndez CATRACHITO Primary Care Provider [phone] Reason for Visit * Reason Comments Medication Refill Encounter Details Date Type Department Care Team (Late st Contact Info) Description 01/11/2024 Refill Nephrology [place] [address] Luna Solorio EXTENSION AGENT [facility] [place] [place] [address] Social History Tobacco Use Types Packs/Day Years Used Date Smoking Tobacco: Former Cigarettes 0.3 1.5 1 08/05/1998 - 12/03/2000 Smokeless Tobacco: Former Quit: 04/14/2001 Alcohol Use Standard Drinks/Week Comments No 0 (1 standard drink = 0.6 oz pur e alcohol) [facility] Inpatient Questions Answer Date Recorded Does [...] on filedocumented in this encounter Care Teams Lamination Machine Operator Relationship Specialty Start Date End Date Ileana Azevedo APRN [address] [place] [address] PCP - General Family Medicine 10/21/22 documented as of this encounter
--- OUTSIDE RECORDS SUMMARY | 2024-04-22 10:51 | XMS_ITS | Encounter Summary ---
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 Name Role Phone Ileana Azevedo CATRACHITO Primary Care Provider [phone] Reason for Visit * Reason Comments Vascular Access Problem * Auth/Cert (Routine) Specialty Diagnoses / Procedures Referred By Contmike t Referred To Contact Diagnoses Hyperkalemia [place] [address] [facility] Referral ID Status Reason Start Date Expiration Date Visits Re quested Visits Authorized [id number] 1 1 Encounter Details Date Type Department Care Team (Latest Contact Info) Description 12/24/2022 11:01 AM EDT - 12/25/2022 2:59 PM EDT Hospital Encounter Surgical Unit Level 2 [place] [address] [place] [address] [place] [address] ESRD on dialysis; Hyperkalemia; Complication of vascular dialysis catheter, unspecified complication, initial encounter Discharge Disposition: Distributor Of Directories Care [facility] Social History Tobacco Use Types Packs/Day Years Used Date Smoking Tobacco: Former Cigarettes 0.3 1.5 1 08/05/1998 - 12/03/2000 Smokeless Tobacco: Former Quit: 04/14/2001 Tobacco Cessation:Counseling Given: Not Answered Alcohol Use Standard Drinks/Week Comments No 0 (1 standard drink = 0.6 oz pur e alcohol) DH IPV Inpatient Questions Answer Date Recorded Does [...] on file documented as of this encounter Last Filed Vital Signs Vital Sign Reading [...] Mass Index 23.57 12/24/2022 9:40 AM EDT documented in this encounter Discharge Summaries * Naz Colunga APRN - 12/25/2022 12:33 PM EDT Images from the original note were not included. Discharge Summary Patient Name: Adama Ram Patient Age: 62 y.o. Language: Prydeinig Race: White Ethnicity: Not nor Admit date: 12/24/2022 Discharge date and time: 12/25/2022 Attending Physician: Benoit Izquierdo MD Discharge Physician: Naz Colunga APRN Follow-up Recommendations for Providers: -Monitor blood pressure, some orthostatic changes noted with standing, but patient asymptomatic -Monitor catheter site for swelling, erythema, or drainage -Patient scheduled to resume regular dialysis session tomorrow 12/26/22 Inpatient Provider Contact Information: For questions regarding this document or issues relating to this hospitalization on the Medical Service, please contact your inpatient physician through the [facility] Outside Maintenance Worker . Issues afterhours and on weekends will be handled by the Hospitalist staff on-call. Discharge Diagnoses (Hospital Problems) and Secondary Diagnoses (Chronic Problems): Active Hospital Problems Diagnosis Hyperkalemia Resolved Hospital Problems No resolved problems to display. 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 History of Presentation: Mr. Adama Ram is a 62 y.o. 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 History of Present Illness: History obtained via chart review and direct patient interview. Patient generally a reliable historian but unfamiliar with full extent of medical care including his medication list. Mr. Adama Ram is a 62 y.o. male with above medical history who presents with iHD catheter dislodgement and hyperkalemia. When asked, Adama was unable to provide clear event precipitating catheter dislodgement. He notes the nursing staff at his living facility applied a dressing and contacted EMS for transport. Per his report, his last dialysis session was 12/22 and without issue. He is now statuspost tunneled line placement and without complaint. Notes new tunneled line site is without pain. He denies chest pain, palpitations, shortness of breath, edema, or other symptoms at this time. Remaining ROS as noted below. In the ED he was noted to have a potassium of 6.3. EKG showed sinus bradycardia but was otherwise unremarkable without peaked t-waves. He received 1g calcium gluconate, 5 units insulin with 10% dextrose, and x1 dose of 10g sodium zirconium. Hospital Course: #IgA nephropathy #ESRD on iHD ,, #Hyperkalemia The patient did well following shift therapy as noted above and his potassium improved with AM labs. He underwent dialysis session on 12/25/22. His blood pressure low normal and orthostatic vital signs were obtained. Although the patient did have a drop in blood pressure he remained without symptomsor instability during the process. He was discharged with plan to resume his regular dialysis schedule on Wednesday12/26/22. #History of TBI w/ seizure disorder Continued Keppra 500mg BID #Hypothyroidism Continue levothyroxine 100mcg #Gout Continued allopurinol 150mg daily--> dose was later confirmed with the patient's SENIOR CARE and noted be to 100mg daily. This change was implemented into the medical record. Vital Signs at Discharge: BP: 105/70, Heart Rate: 50, Temp: 36.8 ??C (98.2 ??F), Resp: 16, BMI (Calculated): 25.11 Height: 177.8 cm (5' 10) (12/24/22 0940) Weight: 74.5 kg (164 lb 3.9 oz) (12/25/22 0500) Functional and Cognitive Status: Patient hemodynamically stable, oxygenating well on room air, independently ambulatory with assistive devices, and at his cognitive baseline. Important Studies and Lab Data: Labs: Last 3 wbc, hgb, hct plt Recent Labs 12/25/22 0106 12/24/22 1500 10/21/22 0747 WBC 5.4 4.6 5.8 HGB 11.1* 11.1* 12.1* HCT 33.5* 34.9* 36.2* PLATELET 167 165 181 Last Ca, Mg, Phos Recent Labs 12/25/22 0106 12/24/22 2150 12/24/22 1500 CALCIUM 9.1 < > 9.3 PHOS -- -- 3.4 MAGNESIUM -- -- 0.99 < > = values in this interval not displayed. Studies: Results for orders placed or performed during the hospital encounter of 12/24/22 XR Chest One View (Exam End: 12/24/2022 12:04 PM) Impression 1. No pneumothorax. 2. Streaky basilar opacities may reflect atelectasis. An infectious/inflammatory process is also possible in the correct clinical setting. Thank you for letting us participate in the care of this patient. If you are a health care provider and have any questions regarding this report, please contact the number below. For patients who have questions please contact the health pharmacy care coordinator that requested your imaging first. Electronically signed by: AMA HORNE MD, [facility] ([phone]), at 12/24/2022 12:36 PM Pending Studies and Lab Data: None Discharge Conditions Discharged in stable condition Discharge to: [facility] Updated Allergies/ADRs: Allergies Allergen Reactions Benazepril Hcl Codeine Other (See Comments) Patient does not know reaction Hydrochlorothiazide Pollen Extracts Sneezing/runny nose Immunizations Given this Hospitalization: Immunization History Administered Date(s) Administered Hepatitis B Vaccine, unspecified formulation 10/31/2001 Influenza PF, Split 03/12/2016 Influenza Vaccine w/Preservative, Split 04/20/2013 Influenza Vaccine, Whole 06/11/2006, 04/09/2009 Pneumococcal Conjugate (13 Valent) 05/20/2016 Pneumococcal Polyvalent 23 05/23/2013 Tdap Vaccine 11/26/2016 Discharge Medications: Your Medications Continued medications with new dosing Dose Details acetaminophen 500 mg tablet Commonly known as: Tylenol Take 2 tablets by mouth every 6 hours. What changed: when to take this reasons to take this 1,000 mg Quantity: 30 tablet Refills: 1 allopurinoL 100 mg tablet Commonly known as: Zyloprim Take 1 tablet by mouth daily. What changed: how much to take 100 mg Quantity: 30 tablet Refills: 11 Continued medications, unchanged Dose Details aspirin EC 81 mg EC (DR) tablet Take 1 tablet by mouth daily. 81 mg Quantity: 30 tablet Refills: 3 levETIRAcetam 500 mg tablet Commonly known as: Keppra Take 1 tablet by mouth 2 times daily. 500 mg Quantity: 60 tablet Refills: 0 levothyroxine 100 mcg tablet Commonly known as: Synthroid Take 1 tablet by mouth daily. 100 mcg Quantity: 90 tablet Refills: 0 pantoprazole EC [address] tablet Commonly known as: Protonix Take 1 tablet by mouth daily. 20 mg Refills: 0 sevelamer carbonate 800 mg tablet Commonly known as: Renvela Take 800 mg by mouth 3 times daily (with meals). 800 mg Refills: 0 tacrolimus 1 mg IR capsule Commonly known as: Prograf Take 1 capsule by mouth 2 times daily. 1 mg Quantity: 60 capsule Refills: 0 vitamin B Complex-vitamin C-folic Acid 0.8 mg Tablet Commonly known as: Tania-julio Take 1 tablet by mouth daily. 1 tablet Quantity: 90 tablet Refills: 3 STOPPED Medications guaiFENesin ER 600 mg ER 12 hr tablet Commonly known as: Mucinex multivitamin Capsule Smoking Status at Discharge: Social History Tobacco Use Smoking Status Former Packs/day: 0.25 Years: 1.50 Pack years: 0.38 Types: Cigarettes Quit date: 12/03/2000 Years since quittin.0 Smokeless Tobacco Former Quit date: 04/14/2001 Instructions Given to Patient at Discharge: Patient Instructions Instructions on Discharge to Home Why you were hospitalized: Loss of dialysis access and hyperkalemia Specific instructions related to your condition: -Please attend dialysis per your regular schedule tomorrow -See below for instructions related to your new tunneled catheter -Be careful when going from a seated to a standing position. If feeling light headed or dizzy, pause before walking or return to a seated position. Call your doctor or seek medical attention if you develop the following Fever >100.4, chills, rigors Light headedness, dizziness, fainting Chest Pain Shortness of breath or difficulty breathing Nausea with vomiting and inability to eat or drink for greater than 24 hours Black tarry stools, or bright red blood in your stool Acute abdominal pain Redness, drainage, or swelling a dialysis catheter site Any other new and concerning symptoms for ou Activity level: no restrictions Diet: no change in previous diet Driving: as before hospitalization. Shower/Bath: permitted Wound Care: See instructions below related to your catheter Your Medications (see discharge med list for full instructions): Follow-up: PCP follow up 01/08/23 at 1:30 pm Your Inpatient Doctor: KRYSTA JOYCE YUAN Your Primary Care Provider: Ileana Azevedo APRN For questions regarding this document or issues relating to this hospitalization on the Medical Service, please contact your inpatient physician through the [facility] Outside Maintenance Worker . Issues afterhours and on weekends will be handled by the Hospitalist staff on-call. General Instructions Tunneled Catheter: What to Expect at Home Your Recovery You've had a procedure to give you a tunneled catheter. The catheter is a soft, flexible tube that runs under your skin, usually from a vein in your chest or neck to a large vein near your heart. Youmay have it for weeks, months, or longer. You will now be able to get medicine, blood, nutrients, or other fluids with more comfort. You willnot be poked with a needle every time. You can use the catheter right away. You will be shown how to use it and how to care for it. Your doctor will tell you how to care for the incision at the insertion site. (It's usually on the neck.) It may have stitches, strips of tape, or a gauze dressing. Your doctor will tell you when thestitches will be removed. The strips of tape will fall off in 3 to 5 days. The gauze dressing can be removed after 2 days. Your doctor will tell you how to care for the incision on your chest where the catheter is. It willlikely have a clear or gauze dressing on it. A clear dressing usually needs to be changed about 2 days after the procedure and then once a week. A gauze dressing needs to be changed 2 or 3 times a week. Also, change the dressing right away if it becomes wet, loose, or dirty. There may be a small ring, or cuff, under the skin on the catheter. This helps hold the catheter inplace. This care sheet gives you a general idea about how long it will take for you to recover. But each person recovers at a different pace. Follow the steps below to feel better as quickly as possible. How can you care for yourself at home? Activity Talk to your doctor about what activities you can do. You may not be able to do sports or exercisesthat use the upper body, such as tennis or weight lifting. Avoid arm and upper body movements that may pull on the catheter. These movements include heavy weight lifting and vigorous use of your arms. You will probably need to take 1 day off from work and will be able to return to normal activities shortly after. This depends on the type of work you do, why you have the catheter, and how you feel. Ask your doctor when you can drive again. Pay special attention when pulling your seat belt across your chest so it doesn't pull out the catheter. It's okay if the seat belt lays over the catheter. You may shower 24 to 48 hours after surgery, if your doctor okays it. Cover the area and catheter so they don't get wet. Pat the cut (incision) dry. Don't go swimming. Medicines Your doctor will tell you if and when you can restart your medicines. He or she will also give you instructions about taking any new medicines. If you stopped taking aspirin or some other blood thinner, your doctor will tell you when to start taking it again. Take pain medicines exactly as directed. If the doctor gave you a prescription medicine for pain, take it as prescribed. If you are not taking a prescription pain medicine, ask your doctor if you can take an tyzc-mex-mmyghug medicine. Do not take two or more pain medicines at the same time unless the doctor told you to. Many pain medicines have acetaminophen, which is Tylenol. Too much acetaminophen (Tylenol) can be harmful. If you think your pain medicine is making you sick to your stomach: Take your medicine after meals (unless your doctor has told you not to). Ask your doctor for a different pain medicine. Incision care Your doctor will tell you how to care for the incision at the insertion site. (It's usually on yourneck.) It may have stitches, strips of tape, or a gauze dressing. Your doctor will tell you when the stitches will be removed. The strips of tape will fall off in 3 to 5 days. The gauze dressing can be removed after 2 days. Your doctor will tell you how to care for the incision on your chest where the catheter is. It willlikely have a clear or gauze dressing on it. A clear dressing usually needs to be changed about 2 days after the procedure and then once a week. A gauze dressing needs to be changed 2 or 3 times a week. Also, change the dressing right away if it becomes wet, loose, or dirty. Other instructions Go to all appointments to flush the line. This keeps it open. A nurse or other health professional will flush the line. Do not wear jewelry, such as necklaces, that can catch on the catheter. If the catheter breaks, follow the instructions your doctor gave you. If you have no instructions, clamp or tie off the catheter. Then, see a doctor as soon as possible. To help prevent infection, take a shower instead of a bath. Do not go swimming with the catheter. Try to keep the area dry. When you shower, cover the area with waterproof material, such as plasticwrap. Never touch the open end of the catheter if the cap is off. Never use scissors, knives, pins, or other sharp objects near the catheter or other tubing. If your catheter has a clamp, keep it clamped when you are not using it. Fasten or tape the catheter to your body to prevent pulling or dangling. Avoid clothing that rubs or pulls on your catheter. Avoid bending or crimping your catheter. Always wash your hands before you touch your catheter. Wear loose clothing over the catheter for the first 10 to 14 days. When getting dressed, be carefulnot to pull on the catheter. Follow-up care is a boyce part of your treatment and safety. Be sure to make and go to all appointments, and call your doctor if you are having problems. It's also a good idea to know your test resultsand keep a list of the medicines you take. When should you call for help? Call 911 anytime you think you may need emergency care. For example, call if: You passed out (lost consciousness). You have severe trouble breathing. You have sudden chest pain and shortness of breath, or you cough up blood. You have a fast or uneven pulse. Call your doctor now or seek immediate medical care if: You have signs of infection, such as: Increased pain, swelling, warmth, or redness. Red streaks leading from the area. Pus or blood draining from the area. A fever. You have swelling in your face, chest, neck, or arm on the side where the catheter is. You have signs of a blood clot, such as bulging veins near the catheter. Your catheter is leaking, cracked, or clogged. You feel resistance when you inject medicine or fluids into your catheter. Your catheter is out of place. This may happen after severe coughing or vomiting, or if you pull onthe catheter. You have chest pain or shortness of breath. Watch closely for changes in your health, and be sure to contact your doctor if: You have any concerns about your catheter. Where can you learn more? Scan the [employer] code or Visit our [employer] information library at [email or web address]/Parkt/ You can also view health information on [employer], your personal patient account. Log in or sign uptoday. Enter D346 in the search box to learn more about Tunneled Catheter: What to Expect at Home. Current as of: June 29, 2022 Content Version: 13.6 ?? [employer]. Care instructions adapted under license by [facility]. If you have questions about a medical condition or this instruction, always ask your healthcare professional. [employer] disclaims any warranty or liability for your use of this information. Discharge References/Attachments None documented in this encounter Discharge Instructions * Discharge Instructions* Anup Kruse RN - 12/24/2022 3:22 PM EDT Images from the original note were not included. Tunneled Catheter: What to Expect at Home Your Recovery You've had a procedure to give you a tunneled catheter. The catheter is a soft, flexible tube that runs under your skin, usually from a vein in your chest or neck to a large vein near your heart. Youmay have it for weeks, months, or longer. You will now be able to get medicine, blood, nutrients, or other fluids with more comfort. You willnot be poked with a needle every time. You can use the catheter right away. You will be shown how to use it and how to care for it. Your doctor will tell you how to care for the incision at the insertion site. (It's usually on the neck.) It may have stitches, strips of tape, or a gauze dressing. Your doctor will tell you when thestitches will be removed. The strips of tape will fall off in 3 to 5 days. The gauze dressing can be removed after 2 days. Your doctor will tell you how to care for the incision on your chest where the catheter is. It willlikely have a clear or gauze dressing on it. A clear dressing usually needs to be changed about 2 days after the procedure and then once a week. A gauze dressing needs to be changed 2 or 3 times a week. Also, change the dressing right away if it becomes wet, loose, or dirty. There may be a small ring, or cuff, under the skin on the catheter. This helps hold the catheter inplace. This care sheet gives you a general idea about how long it will take for you to recover. But each person recovers at a different pace. Follow the steps below to feel better as quickly as possible. How can you care for yourself at home? Activity Talk to your doctor about what activities you can do. You may not be able to do sports or exercisesthat use the upper body, such as tennis or weight lifting. Avoid arm and upper body movements that may pull on the catheter. These movements include heavy weight lifting and vigorous use of your arms. You will probably need to take 1 day off from work and will be able to return to normal activities shortly after. This depends on the type of work you do, why you have the catheter, and how you feel. Ask your doctor when you can drive again. Pay special attention when pulling your seat belt across your chest so it doesn't pull out the catheter. It's okay if the seat belt lays over the catheter. You may shower 24 to 48 hours after surgery, if your doctor okays it. Cover the area and catheter so they don't get wet. Pat the cut (incision) dry. Don't go swimming. Medicines Your doctor will tell you if and when you can restart your medicines. He or she will also give you instructions about taking any new medicines. If you stopped taking aspirin or some other blood thinner, your doctor will tell you when to start taking it again. Take pain medicines exactly as directed. If the doctor gave you a prescription medicine for pain, take it as prescribed. If you are not taking a prescription pain medicine, ask your doctor if you can take an ncdn-mig-kezrfsg medicine. Do not take two or more pain medicines at the same time unless the doctor told you to. Many pain medicines have acetaminophen, which is Tylenol. Too much acetaminophen (Tylenol) can be harmful. If you think your pain medicine is making you sick to your stomach: Take your medicine after meals (unless your doctor has told you not to). Ask your doctor for a different pain medicine. Incision care Your doctor will tell you how to care for the incision at the insertion site. (It's usually on yourneck.) It may have stitches, strips of tape, or a gauze dressing. Your doctor will tell you when the stitches will be removed. The strips of tape will fall off in 3 to 5 days. The gauze dressing can be removed after 2 days. Your doctor will tell you how to care for the incision on your chest where the catheter is. It willlikely have a clear or gauze dressing on it. A clear dressing usually needs to be changed about 2 days after the procedure and then once a week. A gauze dressing needs to be changed 2 or 3 times a week. Also, change the dressing right away if it becomes wet, loose, or dirty. Other instructions Go to all appointments to flush the line. This keeps it open. A nurse or other health professional will flush the line. Do not wear jewelry, such as necklaces, that can catch on the catheter. If the catheter breaks, follow the instructions your doctor gave you. If you have no instructions, clamp or tie off the catheter. Then, see a doctor as soon as possible. To help prevent infection, take a shower instead of a bath. Do not go swimming with the catheter. Try to keep the area dry. When you shower, cover the area with waterproof material, such as plasticwrap. Never touch the open end of the catheter if the cap is off. Never use scissors, knives, pins, or other sharp objects near the catheter or other tubing. If your catheter has a clamp, keep it clamped when you are not using it. Fasten or tape the catheter to your body to prevent pulling or dangling. Avoid clothing that rubs or pulls on your catheter. Avoid bending or crimping your catheter. Always wash your hands before you touch your catheter. Wear loose clothing over the catheter for the first 10 to 14 days. When getting dressed, be carefulnot to pull on the catheter. Follow-up care is a boyce part of your treatment and safety. Be sure to make and go to all appointments, and call your doctor if you are having problems. It's also a good idea to know your test resultsand keep a list of the medicines you take. When should you call for help? Call 911 anytime you think you may need emergency care. For example, call if: You passed out (lost consciousness). You have severe trouble breathing. You have sudden chest pain and shortness of breath, or you cough up blood. You have a fast or uneven pulse. Call your doctor now or seek immediate medical care if: You have signs of infection, such as: Increased pain, swelling, warmth, or redness. Red streaks leading from the area. Pus or blood draining from the area. A fever. You have swelling in your face, chest, neck, or arm on the side where the catheter is. You have signs of a blood clot, such as bulging veins near the catheter. Your catheter is leaking, cracked, or clogged. You feel resistance when you inject medicine or fluids into your catheter. Your catheter is out of place. This may happen after severe coughing or vomiting, or if you pull onthe catheter. You have chest pain or shortness of breath. Watch closely for changes in your health, and be sure to contact your doctor if: You have any concerns about your catheter. Where can you learn more? Scan the ItsOn code or Visit our [employer] information library at [email or web address] You can also view health information on [employer], your personal patient account. Log in or sign uptoday. Enter D346 in the search box to learn more about Tunneled Catheter: What to Expect at Home. Current as of: June 29, 2022 Content Version: 13.6 ?? [email or web address]. Care instructions adapted under license by [facility]. If you have questions about a medical condition or this instruction, always ask your healthcare professional. [email or web address] disclaims any warranty or liability for your use of this information. * Patient Instructions* Naz Colunga APRN - 12/25/2022 8:10 AM EDT Instructions on Discharge to Home Why you were hospitalized: Loss of dialysis access and hyperkalemia Specific instructions related to your condition: -Please attend dialysis per your regular schedule tomorrow -See below for instructions related to your new tunneled catheter -Be careful when going from a seated to a standing position. If feeling light headed or dizzy, pause before walking or return to a seated position. Call your doctor or seek medical attention if you develop the following Fever >100.4, chills, rigors Light headedness, dizziness, fainting Chest Pain Shortness of breath or difficulty breathing Nausea with vomiting and inability to eat or drink for greater than 24 hours Black tarry stools, or bright red blood in your stool Acute abdominal pain Redness, drainage, or swelling a dialysis catheter site Any other new and concerning symptoms for ou Activity level: no restrictions Diet: no change in previous diet Driving: as before hospitalization. Shower/Bath: permitted Wound Care: See instructions below related to your catheter Your Medications (see discharge med list for full instructions): Follow-up: PCP follow up 01/08/23 at 1:30 pm Your Inpatient Doctor: KRYSTA JOYCE YUAN Your Primary Care Provider: Ileana Azevedo APRN For questions regarding this document or issues relating to this hospitalization on the Medical Service, please contact your inpatient physician through the [facility] Outside Maintenance Worker . Issues afterhours and on weekends will be handled by the Hospitalist staff on-call. documented in this encounter Medications at Time of Discharge Medication Sig Dispensed Refills Start Date End Date allopurinoL (Zyloprim) 100 mg tablet Take 1 tablet by mouth daily. 30 tablet 11 12/25/2022 pantoprazole EC (Protonix) [address] tablet Take 1 tablet by mouth daily. 10/21/2022 vitamin B Complex-vitamin C-folic Acid (Tania-julio) 0.8 mg Tablet Take 1 tablet by mouth daily. 90 tablet 3 10/22/2022 aspirin 81 mg Tablet, Delayed Release (E.C.) Take 1 tablet by mouth daily. 30 tablet 3 12/14/2018 acetaminophen (TYLENOL) 500 mg Tablet Take 2 tablets by mouth every 6 hours. 30 tablet 1 2018 levETIRAcetam (KEPPRA) 500 mg Tablet Take 1 tablet by mouth 2 times daily. 60 tablet 2018 levothyroxine (SYNTHROID) 100 mcg Tablet Take 1 tablet by mouth daily. 90 tablet 2018 tacrolimus (Prograf) 1 mg IR capsuleIndications:ESRD (end stage renal disease) on dialysis Take 1 capsule by mouth 2 times daily. 60 capsule 10/21/2022 12/07/2023 sevelamer carbonate (Renvela) 800 mg Tablet Take 800 mg by mouth 3 times daily (with meals). 01/11/2024 documented as of this encounter Progress Notes * Ashley Zelaya - 12/25/2022 2:59 PM EDT Office of Care Management/[employer] Patient Name: Adama Ram : 1960 Patient has been offered a [facility] bed at [facility] from [facility] confirmed a delivery route driver provided by transportation refrigeration technician, Bill, will arrive to pick patient up at discharge from the [facility] entrance at 3pm (1500) en route to [facility] No MD to MD report necessary Please call Nursing Report to , ask for head of sales and marketing. Info to accompany patient: Copies of Medication Administration Records and IV sheets for past 10 days. Plan: [employer] will be available to the patient and Distributor Of Directories-RN and/or Social Workerfor further assistance. Patient will be discharged to: [facility] Basic Information Address: [address] [place] [address] Aldo Black * Nadja Lira - 12/25/2022 11:03 AM EDT Discharge Transportation confirmed: Spoke with Shayne from [facility] who confirmed a delivery route driver provided by transportation refrigeration technician, Nayan will arrive to pick patient up at discharge from the [facility] entrance at 3pm (1500) en route to [facility] (address on file). Bedside nurse notified via eD chat. [employer] * Naz Colunga APRN - 12/25/2022 10:43 AM EDT Hospital Medicine - Day of Discharge Documentation Discharge diagnosis Active Hospital Problems Diagnosis Hyperkalemia Resolved Hospital Problems No resolved problems to display. 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 I spent >30 minutes (Day of Discharge Code 36676) involved in the final examination of the patient, discussion of the hospital stay, instructions for continuing care to all relevant caregivers, and preparation of discharge records, prescriptions and referral forms. Plans Discharge to Assisted Living Facility Follow-up scheduled with Primary Care, plan for iHD per normal schedule Please see the Discharge Summary for complete details of any medication changes and additional plans. * Ortega Girard MD - 12/25/2022 10:03 AM EDT End-stage renal disease patient seen and examined on dialysis. No current facility-administered medications on file prior to encounter. Current Outpatient Medications on File Prior to Encounter Medication Sig Dispense Refill tacrolimus (Prograf) 1 mg IR capsule Take 1 capsule by mouth 2 times daily. 60 capsule 0 pantoprazole EC (Protonix) [address] tablet Take 1 tablet by mouth daily. vitamin B Complex-vitamin C-folic Acid (Tania-julio) 0.8 mg Tablet Take 1 tablet by mouth daily. 90 tablet 3 [DISCONTINUED] allopurinoL (Zyloprim) 100 mg tablet Take 1.5 tablets by mouth daily. 30 tablet 11 sevelamer carbonate (Renvela) 800 mg Tablet Take 800 mg by mouth 3 times daily (with meals). aspirin 81 mg Tablet, Delayed Release (E.C.) Take 1 tablet by mouth daily. 30 tablet 3 acetaminophen (TYLENOL) 500 mg Tablet Take 2 tablets by mouth every 6 hours. 30 tablet 1 levETIRAcetam (KEPPRA) 500 mg Tablet Take 1 tablet by mouth 2 times daily. 60 tablet 0 levothyroxine (SYNTHROID) 100 mcg Tablet Take 1 tablet by mouth daily. 90 tablet 0 [DISCONTINUED] multivitamin Capsule Take 1 capsule by mouth daily. 30 capsule 0 Blood pressure 97/70, heart rate 58 Adama feels fine this morning and is without complaint. Tolerating treatment well. New left IJ dialysis catheter achieves blood flow 450, but we have to reverse the lines already. Unclear if this willbe a persistent problem? The site looks fine without active bleeding. Chest is clear. Heart regular. Abdomen soft. No peripheral edema. Data reviewed. With shift therapy, the potassium improved to 4.9. Assessment and plan: Dialysis underway. He will have dialysis again tomorrow at his usual outpatient slot so we will shorten his run to 3 hours today, 2K bath, ultrafiltration of 1 L, heparin 2000. We discussed protecting his new IJ catheter. I will update his outpatient education program manager. Blood pressure is relatively low during admission here. Will alert outpt nephrology to monitor. It does not appear he is on any chronic antihypertensives. He is asymptomatic. If symptomatic hypotension or if low blood pressure limit dialysis, can consider measuring carnitine in addition to cardiac eval. * Oliver Andersen MD - 12/25/2022 6:46 AM EDT INTERVENTIONAL RADIOLOGY Inpatient Progress Note Admitted 12/24/2022 Procedure(s): Tunneled HD catheter placement Post-procedure day: #1 Time of patient encounter: 0640 24 Hour Events: No acute overnight events. Last Value 24 Hour Range Temperature 36.4 ??C (97.5 ??F) Temp: [36.3 ??C (97.3 ??F)-36.8 ??C (98.2 ??F)] Heart Rate 67 Heart Rate: [51-67] Blood Pressure 106/70 BP: (97-132)/(57-80) Respiratory Rate 18 Resp: [11-18] SpO2 97 % SpO2: [95 %-100 %] Physical Exam GEN No distress, A&O ABD Non tender, nondistended Vasc ACCESS Left tunnel site without active bleeding. Clotted blood beneath dressing. Labs: Reviewed Imaging: No interval imaging. Assessment: 62 y.o. male with ESRD on dialysis via left tunneled HD catheter which was inadvertently dislodged and a new catheter was placed on 12/24. Patient pending dialysis today. Plan: IR will sign off, please call with questions. * Anup Kruse RN - 12/24/2022 2:33 PM EDT ANGIO NURSING DATABASE Name: Adama Ram Date of : 1960 AGE: 62 y.o. Address: [address] [address] Phone: [phone] (home) Mobile: Telephone Information: Referring Provider: No ref. provider found REASON FOR VISIT: Order Questions Answers Is the patient on anticoagulant / antiplatelet therapy ? Aspirin Reason for exam and clinical history: Had left-sided tunneled dialysis catheter accidentally dislodged today Planned procedure: Tunneled HD catheter placement Labs to be performed day of procedure: No labs Sedation: Moderate (Conscious sedation) Prophylactic antibiotic : None Contrast: No contrast Additional medications for procedure: Lidocaine Planned access site: Right IJ Position: Supine Consent: Pending Medications to discontinue (and days held): None Case Urgency:: F- Elective OUT-patient intervention within 3 days Allergies Allergen Reactions Benazepril Hcl Codeine Other (See Comments) Patient does not know reaction Hydrochlorothiazide Pollen Extracts Sneezing/runny nose Pertinent PMH: Patient Active Problem List Diagnosis Code Epilepsy G40.909 Gout M10.9 Hypertension I10 IgA nephropathy N02.8 BCC (basal cell carcinoma of skin) C44.91 Acne rosacea L71.9 Rosacea L71.9 Atopic rhinitis J30.9 Injury of head S09.90XA Non-neoplastic nevus I78.1 Colon polyp K63.5 Varicose veins of lower extremities I83.93 Squamous cell carcinoma of skin of other parts of face C44.329 Prophylactic immunotherapy Z29.8 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 Z79.899 H/O kidney transplant Z94.0 Weight loss R63.4 Gastrointestinal hemorrhage K92.2 Bradycardia R00.1 Left renal mass N28.89 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 Subarachnoid hemorrhage I60.9 Anemia of chronic renal failure N18.9, D63.1 SDH (subdural hematoma) S06.5XAA Failed kidney transplant T86.12 CKD (chronic kidney disease) stage 5, GFR less than 15 ml/min N18.5 Hypertension secondary to other renal disorders I15.1, N28.89 Renal osteodystrophy N25.0 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 ESRD (end stage renal disease) on dialysis N18.6, Z99.2 Hyperkalemia E87.5 Date/Procedure Meds Given/Comments 08/30/18 Tunneled HD Cath Exchange Fentanyl 100mcg IV 11/30/19 RUE Fistulagram with multiple PTAs Fentanyl 175 mcg IV; Versed 3.5 mg IV (pt awake for the most part, BP sensitive to sedation even with half doses). 12/27/20 Tunneled Line Placement Fentanyl 250 mcg IV, tolerated well 01/07/2021 RUE fistulagram and tunneled line exchange Fentanyl 50 mcg IV Versed 1 mg IV 01/23/21 HD Tunneled line exchange Local only, tolerated well 03/20/21 HD Tunneled line exchange / [place] [facility] [place] only, tolerated well 09/25/21 RLE fistulagram Fentanyl 100 mcg IV, Heparin IV 3000 units, Cathflo 4 mg intra catheter, pttolerated procedure he denied pain pt run SB 09/29/21 Tunneled HD line placement Fentanyl 100 mcg IV, tolerated well 10/1021 Fistulogram: 3mg TPA, ballooning, stent at graph-vein anastamosis Versed 2mg, Fentanyl 200mcg, Alteplase 3mg, heparin 5000U 11/05/21 Fistulagram, with angioplasty Fentanyl 200 mcg IV, Heparin 3000 units IV, Cathflo 1 mg intra-catheter, 09/30/22 HD tunneled line exchange and angioplasty Local only. 10/14/22 HD Line exchange for 15.5fr x 28cm Local - tolerated very well 12/24/2022 HD Line Placement Fentanyl 50 mcg IV, Local 1434 to procedure room IR 1 via stretcher. Onto table Supine All monitors, O2, safety strap in place. Meds per protocol. Laboratory Results: Lab Results Component Value Date INR 0.9 08/03/2018 Lab Results Component Value Date CREATININE 6.68 (H) 10/21/2022 Lab Results Component Value Date K 4.8 10/21/2022 Lab Results Component Value Date PLATELET 181 10/21/2022 * Oliver Andersen MD - 12/24/2022 1:46 PM EDT INTERVENTIONAL RADIOLOGY FOCUSED H&P: Procedure: Planned procedure: Tunneled HD catheter placement The patient's history and physical exam have been reviewed and completed. There has been no interval change from that of the pre-operative history and physical exam done within the last 30 days. Physical Exam: Cardiovascular: Regular, Normal Pulmonary: Breath sounds clear to auscultation The planned procedure (and sedation plan if appropriate) , its benefits and risks, and alternativeswere discussed with the patient. The patient consented to the procedure. PRE-SEDATION ASSESSMENT: Sedation Plan: moderate (conscious sedation) ASA: 3: Patient with severe systemic disease Mallampati: II: tonsillar pillars are blocked by the tongue Current medications reviewed: Yes Allergies reviewed: Yes documented in this encounter H&P Notes * Naz Colunga APRN - 12/24/2022 5:57 PM EDT Inpatient Hospital Medicine - Admission Note Problem List: Active Hospital Problems Diagnosis Hyperkalemia Resolved Hospital Problems No resolved problems to display. Active Non-Hospital Problems Diagnosis ESRD (end stage renal disease) on dialysis Failed kidney transplant CKD (chronic kidney disease) stage 5, GFR less than 15 ml/min Hypertension secondary to other renal disorders Renal osteodystrophy RTA (renal tubular acidosis) SDH (subdural hematoma) Anemia of chronic renal failure Subarachnoid hemorrhage Primary papillary carcinoma of left kidney Gastrointestinal hemorrhage Bradycardia Left renal mass Weight loss Prophylactic immunotherapy longterm current use of immunosuppressive drug H/O kidney transplant Squamous cell carcinoma of skin of other parts of face Atopic rhinitis Injury of head Non-neoplastic nevus Varicose veins of lower extremities Rosacea Acne rosacea Colon polyp BCC (basal cell carcinoma of skin) IgA nephropathy Gout Hypertension Epilepsy ID: Mr. Adama Ram is a 62 y.o. 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 History of Present Illness: History obtained via chart review and direct patient interview. Patient generally a reliable historian but unfamiliar with full extent of medical care including his medication list. Mr. Adama Ram is a 62 y.o. male with above medical history who presents with iHD catheter dislodgement and hyperkalemia. When asked, Adama was unable to provide clear event precipitating catheter dislodgement. He notes the nursing staff at his living facility applied a dressing and contacted EMS for transport. Per his report, his last dialysis session was 12/22 and without issue. He is now statuspost tunneled line placement and without complaint. Notes new tunneled line site is without pain. He denies chest pain, palpitations, shortness of breath, edema, or other symptoms at this time. Remaining ROS as noted below. In the ED he was noted to have a potassium of 6.3. EKG showed sinus bradycardia but was otherwise unremarkable without peaked t-waves. He received 1g calcium gluconate, 5 units insulin with 10% dextrose, and x1 dose of 10g sodium zirconium. Review of Systems: Review of Systems Constitutional: Negative for appetite change, chills, diaphoresis, fatigue and fever. HENT: Positive for dental problem. Negative for mouth sores, rhinorrhea, sneezing, sore throat and trouble swallowing. Notes he is missing his partial dentures/plate Eyes: Negative for photophobia, redness and visual disturbance. Respiratory: Negative for cough, chest tightness, shortness of breath and wheezing. Cardiovascular: Negative for chest pain, palpitations and leg swelling. Gastrointestinal: Negative for abdominal pain, blood in stool, constipation, diarrhea, nausea and vomiting. Endocrine: Negative for polydipsia, polyphagia and polyuria. Genitourinary: Reports no urine production at this time Musculoskeletal: Negative for arthralgias and back pain. Skin: Negative for rash and wound. Neurological: Negative for dizziness, seizures, light-headedness and headaches. Psychiatric/Behavioral: Negative for dysphoric mood and sleep disturbance. Past Medical and Surgical History: Past Medical History: Diagnosis Date BP (high blood pressure) DVT (deep venous thrombosis) Gout Hypertension Kidney problem Pneumonia TBI (traumatic brain injury) 1979 Past Surgical History: Procedure Laterality Date CREATED BY INTERFACE Entered not Verified Procedure Date: 09/19/2010 IR DIALYSIS ACCESS - AV FISTULA EVALUATIONS 11/30/2019 IR Dialysis Access - AV Fistula Evaluations 11/30/2019 Sabrina Velez MD [facility] INTERVENTIONL RAD IR DIALYSIS ACCESS - AV FISTULA EVALUATIONS 01/07/2021 IR Dialysis Access - AV Fistula Evaluations 01/07/2021 Sabrina Velez MD [facility] INTERVENTIONL RAD IR DIALYSIS ACCESS - AV FISTULA EVALUATIONS 09/25/2021 IR Dialysis Access - AV Fistula Evaluations 09/25/2021 Kanu Apple MD [facility] INTERVENTIONL RAD IR DIALYSIS ACCESS - AV FISTULA EVALUATIONS 10/10/2021 IR Dialysis Access - AV Fistula Evaluations 10/10/2021 Walt Lin MD [facility] INTERVENTIONL RAD IR DIALYSIS ACCESS - AV FISTULA EVALUATIONS 11/05/2021 IR Dialysis Access - AV Fistula Evaluations 11/05/2021 Walt Lin MD [facility] INTERVENTIONL RAD IR DIALYSIS ACCESS - TUNNELED LINE 07/30/2018 IR Dialysis Access - Tunneled Line 07/30/2018 Walt Lin MD [facility] INTERVENTIONL RAD IR DIALYSIS ACCESS - TUNNELED LINE 08/30/2018 IR Dialysis Access - Tunneled Line 08/30/2018 Erwin Simon APRN [facility] INTERVENTIONL RAD IR DIALYSIS ACCESS - TUNNELED LINE 12/27/2020 IR Dialysis Access - Tunneled Line 12/27/2020 Zechariah, Kanu Grubbs MD [facility] INTERVENTIONL RAD IR DIALYSIS ACCESS - TUNNELED LINE 01/23/2021 IR Dialysis Access - Tunneled Line 01/23/2021 Zechariah, Kanu Grubbs MD [facility] INTERVENTIONL RAD IR DIALYSIS ACCESS - TUNNELED LINE 03/20/2021 IR Dialysis Access - Tunneled Line 03/20/2021 Tab Harmon MD [facility] INTERVENTIONL RAD IR DIALYSIS ACCESS - TUNNELED LINE 09/29/2021 IR Dialysis Access - Tunneled Line 09/29/2021 Tab Harmon MD [facility] INTERVENTIONL RAD IR DIALYSIS ACCESS - TUNNELED LINE 09/30/2022 IR Dialysis Access - Tunneled Line 09/30/2022 Sabrina Velez MD [facility] INTERVENTIONL RAD IR DIALYSIS ACCESS - TUNNELED LINE 10/14/2022 IR Dialysis Access - Tunneled Line 10/14/2022 Sabrina Velez MD [facility] INTERVENTIONL RAD IR DIALYSIS ACCESS - TUNNELED LINE 12/24/2022 IR Dialysis Access - Tunneled Line 12/24/2022 Carroll Diaz MD [facility] INTERVENTIONL RAD IR LINE OR TUBE REMOVAL IN RECOVERY ROOM 07/31/2021 IR Line or Tube Removal in Recovery Room 07/31/2021 [facility] INTERVENTIONL RAD KIDNEY TRANSPLANT KIDNEY TRANSPLANT / RECIPIENT/LT Procedure Date: 11/26/2002 PRO ANASTOMOSIS, AV, ANY SITE Right 05/22/2021 AV FISTULA CREATION, DIRECT HEMODIALYSIS, ANY SITE, EG MADYSON FISTULA LOWER EXTREMITY (WRVU 11.9) performed by Odalis Elias MD at [facility] MAIN OR PRO CREAT AV FISTULA, NON-AUTOGENOUS GRAFT Right 12/13/2018 PLACEMENT, AV HEMODIALYSIS GRAFT, SYNTHETIC GRAFT, UPPER EXTREMITY (WRVU 12.03) performed by Mary Garay MD at [facility] MAIN OR PRO CREAT AV FISTULA, NON-AUTOGENOUS GRAFT Left 04/03/2021 PLACEMENT, AV HEMODIALYSIS GRAFT, SYNTHETIC GRAFT, UPPER EXTREMITY (WRVU 12.03) performed by Odalis Elias MD at [facility] MAIN OR PRO DEBRIDEMENT SUBCUTANEOUS TISSUE 20 SQCM/< Left 02/20/2016 DEBRIDEMENT SKIN AND SUBCU, HEAD/NECK performed by Miguel Angel Moreno MD at [facility] MAIN OR PRO DECOMPRESS FOREARM, BRACH ART EXPLOR Left 04/06/2018 FASCIOTOMY, FOREARM, WITH BRACHIAL ARTERY EXPLORATION (WRVU 8.41) performed by Lida Peter, [facility] MAIN OR PRO DIRECT REPAIR RUPTURED ANEURYSM, AXILLO-BRACHIAL ARM INCIS Left 04/06/2018 @REPAIR, RUPTURED AXILLARY OR BRACHIAL ARTERY ANEURYSM BY ARM INCISION (WRVU *) performed by Lida Peter MD at [facility] MAIN OR PRO EXC PAROTD, TOTAL, UNILAT RAD NECK Left 02/05/2016 @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, TOTAL, WITH UNILATERAL RADICAL NECK DISSECTION performed by Miguel Angel Moreno MD at [facility] MAIN OR PRO EXC SKIN MALIG 3.1-4CM FACE, FACIAL Left 02/05/2016 EXC MALIGNANT LESION, 3.1 TO 4.0CM, FACE performed by Miguel Angel Moreno MD at [facility] MAIN OR PRO EXC SKIN MALIG >4CM TRUNK, ARM, LEG 04/19/2012 EXC MALIGNANT LESION, MICHAEL > 4.0CM, TRUNK performed by SABRINA SANCHEZ at [facility] MAIN OR PRO LAP, RADICAL NEPHRECTOMY Left 05/31/2017 @LAPAROSCOPY, RADICAL NEPHRECTOMY (WRVU 25.06) performed by Jax Mills MD at [facility] MAIN OR PRO LIGATN ANGIOACCESS AV FISTULA Left 04/19/2018 LIGATION OR BANDING OF HEMODIALYSIS FISTULA OR GRAFT UPPER EXTREMITY (WRVU 6.25) performed by Odalis Elias MD at [facility] MAIN OR PRO NEGATIVE PRESSURE WOUND THERAPY, LESS THAN OR EQUAL TO 50 SQCM Left 04/19/2018 DRESSING CHANGE (VAC ASSISTED) UP TO 50SQ.CM (WRVU 0.55) [facility] MAIN OR PRO PHLEB VEINS - EXTREM - TO 20 Right 05/22/2021 STAB PHLEBECTOMY LISBET VEINS 1 EXTREMITY 10-20 INCISIONS (WRVU 7.71) performed by Odalis Elias MD at [facility] MAIN OR PRO REBL VES GRAFT, UP EXTREM Left 04/06/2018 REPAIR BLOOD VESSEL WITH GRAFT OTHER THAN VEIN, UPPER EXTREMITY (WRVU 15.83) performed by Lida Peter MD at [facility] MAIN OR PRO RELIEVE PRESSURE ON NERVE(S) Left 04/06/2018 (MSURG) CARPAL TUNNEL (WRVU 4.82) performed by Silviano Sparks MD at [facility] MAIN OR PRO REPAIR INTERMEDIATE S/A/T/E 2.6-7.5 CM 04/19/2012 REPAIR INTERMEDIATE WOUND, (NO HANDS OR FEET) 2.6 TO 7.5CM, UPPER EXTREMITY performed by SABRINA SANCHEZ at [facility] MAIN OR PRO REPAIR INTERMEDIATE S/A/T/E > 30.0 CM Left 04/14/2018 REPAIR INTERMEDIATE WOUND, (NO HANDS OR FEET) >30.0CM, UPPER EXTREMITY (WRVU 5) performed by Yimi Easton MD at [facility] MAIN OR [facility] REVISE MEDIAN N/CARPAL TUNNEL SURG Left 04/06/2018 MEDIAN NERVE DECOMPRESSION (CARPAL TUNNEL RELEASE) (WRVU 4.97) performed by Lida Peter MD [facility] MAIN OR PRO SPLIT GRFT TRUNK, ARM, LEG <100SQCM Left 04/26/2018 SPLIT THICK SKIN GRAFT,100 SQ CM OR LESS, ARMS (WRVU 9.9) performed by Silviano Sparks MD at [facility] MAIN OR PRO SPLIT GRFT, HEAD, FAC, HAND, FEET <100SQCM N/A 02/20/2016 SPLIT THICKNESS SKIN SPLIT GRAFT,100SQ CM OR LESS, NECK performed by Miguel Angel Moreno MD at [facility] MAIN OR PRO SPLIT GRFT, TRUNK, ARM, LEG EA 100SQCM N/A 04/26/2018 EA.ADDITIONAL 100SQ.CM STSG (WRVU 1.72) performed by Silviano Sparks MD at [facility] MAIN OR PRO UNLISTED PROCEDURE VASCULAR SURGERY Left 11/20/2015 LIGATION\REPAIR AV FISTULA performed by Camilo Ireland MD at [facility] MAIN OR PRO UNLISTED PROCEDURE VASCULAR SURGERY Left 11/20/2015 EXCISION VEIN FROM HAND performed by Camilo Ireland MD at [facility] MAIN OR PRO UPPER GI ENDOSCOPY, BIOPSY N/A 05/13/2017 EGD WITH BIOPSY (WRVU 2.49) performed by Aditya Barrera MD at [facility] ENDOSCOPY US RENAL TRANSPLANT BIOPSY 12/31/2010 US RENAL TRANSPLANT RIGHT Right 06/04/2018 US Renal Transplant Right 06/04/2018 [facility] RAD ULTRASOUND Prior To Admission Medications: (Not in a hospital admission) Allergies: Allergies Allergen Reactions Benazepril Hcl Codeine Other (See Comments) Patient does not know reaction Hydrochlorothiazide Pollen Extracts Sneezing/runny nose Family History: Family History Problem Relation Age of Onset Pancreatitis Father Social History and Habits: Social History Socioeconomic History Marital status: Single Spouse name: Not on file Number of children: Not on file Years of education: Not on file Highest education level: Not on file Occupational History 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 Tobacco Use Smoking status: Former Packs/day: 0.25 Years: 1.50 Pack years: 0.38 Types: Cigarettes Quit date: 12/03/2000 Years since quittin.0 Smokeless tobacco: Former Quit date: 04/14/2001 Vaping Use Vaping Use: Never used Substance and Sexual Activity Alcohol use: No Drug use: No Types: Marijuana Comment: havent in Sexual activity: Not on file Comment: Deferred Other Topics Concern Not on file Social History Narrative Not on file Social Determinants of Health Financial Resource Strain: Not on file Food Insecurity: Not on file Transportation Needs: Not on file Physical Activity: Not on file Housing Stability: Not on file Immunizations: Immunization History Administered Date(s) Administered Hepatitis B Vaccine, unspecified formulation 10/31/2001 Influenza PF, Split 03/12/2016 Influenza Vaccine w/Preservative, Split 04/20/2013 Influenza Vaccine, Whole 06/11/2006, 04/09/2009 Pneumococcal Conjugate (13 Valent) 05/20/2016 Pneumococcal Polyvalent 23 05/23/2013 Tdap Vaccine 11/26/2016 Physical Exam: Last Set of Vitals and range of vitals over past 24 hours: Last value Range last 24 hrs Temperature Temp: 36.3 ??C (97.3 ??F) Temp: [36.3 ??C (97.3 ??F)] Heart Rate Heart Rate: 55 Heart Rate: [51-57] Blood Pressure BP: 130/63 BP: (97-132)/(57-80) Respiratory Rate Resp: 18 Resp: [11-18] SpO2 SpO2: 97 % SpO2: [97 %-100 %] Body mass index is 25.11 kg/m??. General: Patient, awake, alert, and resting comfortably in bed upon entering room. Not in acute distress. Breathing comfortably on room air and able to communicate in full sentences. HEENT: Normocephalic, atraumatic. Bilateral sclera anicteric and without injection. Oral mucous membranes moist. Pharynx clear, uvula midline, no evidence of injection or exudate. Front teeth absent. Neck: Trachea midline, no thyromegaly. No JVP elevation appreciated. Chest: S1S2, RRR, no murmurs, rubs, or clicks. Tunneled catheter left chest wall. Superior to new catheter bandage with gauze, saturated in serous fluid. Lungs: Respiratory effort and expansion good, equal, and symmetric. Work of breathing even and unlabored. Bilateral lungs clear to auscultation with no adventitious sounds noted. Abdomen: Flat, soft, non-tender. Bowel sounds normoactive. No masses or hepatosplenomegaly appreciated Extremities: Warm and well perfused. Radial and pedal pulses +2, equal, and symmetric. No edema appreciated Skin: warm and dry to touch. Neuro: Alert and oriented x4, no focal deficit Psych: Affect pleasant, euthymic, speech fluid. Laboratory (Last 24 Hours): Recent Results (from the past 24 hour(s)) Comprehensive metabolic panel (non-fasting) Result Value Ref Range Glucose Lvl 95 65 - 199 mg/dL BUN 47 (H) 10 - 20 mg/dL Creatinine 9.43 (H) 0.80 - 1.50 mg/dL Sodium 140 135 - 145 mmol/L Potassium 6.3 (CRIT) 3.5 - 5.0 mmol/L Chloride 98 98 - 107 mmol/L CO2 26 22 - 31 mmol/L Anion Gap 16 (H) 5 - 15 mmol/L Calcium 9.3 8.5 - 10.5 mg/dL Total Protein 7.2 6.1 - 8.0 g/dL Albumin 4.3 3.2 - 5.2 g/dL AST 15 0 - 39 unit/L ALT 12 0 - 55 unit/L Alk Phos 120 40 - 130 unit/L Total Bilirubin 0.4 0.2 - 1.3 mg/dL Estimated GFR 6 (L) >=60 mL/min/1.73 m?? Prothrombin Time Result Value Ref Range PT 11.2 9.4 - 12.5 sec INR 1.0 APTT Result Value Ref Range PTT 23 (L) 25 - 37 sec Magnesium Result Value Ref Range Magnesium 0.99 0.69 - 1.07 mmol/L Hemogram Result Value Ref Range WBC 4.6 4.0 - 9.5 x10(3)/mcL RBC 3.53 (L) 4.58 - 5.54 x10(6)/mcL Hemoglobin 11.1 (L) 13.7 - 16.5 g/dL Hematocrit 34.9 (L) 40.5 - 48.5 % MCV 98.9 (H) 82.9 - 93.1 fL MCH 31.4 27.5 - 32.1 pg MCHC 31.8 (L) 32.0 - 35.7 g/dL Platelets 165 145 - 357 x10(3)/mcL RDWSD 44.9 36.0 - 45.0 fL RDWCV 12.4 11.4 - 13.8 % MPV 9.0 7.6 - 12.9 fL nRBC % Auto 0.0 % nRBC Abs Auto 0.000 0.000 - 0.000 x10(3)/mcL Differential, Automated Result Value Ref Range Neutrophils % 62.6 % Neutr Abs (ANC) 2.88 1.70 - 6.10 x10(3)/mcL Lymphocytes % 25.2 % Lymphocytes Abs 1.2 0.9 - 3.2 x10(3)/mcL Monocytes % 8.7 % Monocyte Abs 0.4 0.3 - 0.9 x10(3)/mcL Eosinophils % 2.6 % Eosinophils Abs 0.1 0.0 - 0.4 x10(3)/mcL Basophils % 0.7 % Basophils Abs 0.0 0.0 - 0.1 x10(3)/mcL Immature Gran % 0.20 % Veronika Gran Abs 0.01 0.00 - 0.04 x10(3)/mcL Phosphorus Result Value Ref Range Phosphorus 3.4 2.5 - 4.5 mg/dL Microbiology: Blood Cultures: N/A Urine Cultures: N/A Radiology: Results for orders placed or performed during the hospital encounter of 12/24/22 XR Chest One View (Exam End: 12/24/2022 12:04 PM) Impression 1. No pneumothorax. 2. Streaky basilar opacities may reflect atelectasis. An infectious/inflammatory process is also possible in the correct clinical setting. Thank you for letting us participate in the care of this patient. If you are a health care provider and have any questions regarding this report, please contact the number below. For patients who have questions please contact the health pharmacy care coordinator that requested your imaging first. Electronically signed by: AMA HORNE MD, [facility] ([phone]), at 12/24/2022 12:36 PM Other Studies: EKG - Sinus bradycardia Otherwise normal ECG When compared with ECG Assessment: Mr. Adama Ram is a 62 y.o. 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 Plan for shift therapy in the ED with addition of sodium zirconium to promote potassium excretion. Nephrology at bedside with plan of iHD in am and likely discharge following. Will repeat BMP around 5399-5367. If potassium remains significantly elevated, plan to contact nephrology for engagement regarding more urgent/emergent dialysis. 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 T,, #Hyperkalemia -S/p IR tunneled cathter today 12/24 -Nephrology engaged-plan of iHD in AM -Dialyzes at [facility] in [place], last session 12/22 -S/p 5 units insulin with d10 -S/p 10g sodium zirconium -Repeat BMP 1930-if potassium does not improve or worsens contact Nephrology for more urgent intervention -Phosphorous at goal- continue sevelamer 800 TID with meals #History of TBI w/ seizure disorder -Continue Keppra 500mg BID #Hypothyroidism -Continue levothyroxine 100mcg #Gout -Continue allopurinol 150mg daily Admit to Hospital Medicine Physical Therapy referral DVT Prophylaxis-heparin If currently a smoker - advised about smoking cessation and will provide smoking cessation materialand support. Pneumovax and Influenza Immunizations given as needed. Discussed Advanced Directives and Code Status. The patient wishesto be DNR/DNI. A copy of this document will be sent to the patient's Primary Care Physician and/or Referring Physician. Naz Colunga APRN 12/24/2022 * Oliver Andersen MD - 12/24/2022 11:59 AM EDT INTERVENTIONAL RADIOLOGY FOCUSED H&P and PRE-PROCEDURE NOTE: PCP: Ileana Azevedo APRN Referring Provider: Real Clark Planned Procedure: Planned procedure: Tunneled HD catheter placement Procedure Indication: Dislodged HD catheter Procedure Request: Procedure request received through the Interventional Radiology eDH order queue. Presenting Diagnosis/ Complaint: Adama Ram is a 62 y.o. male with history of ESRD status post transplant in 2012 with graft failure on dialysis complicated by multiple failed ABGs in the bilateral upper extremities currently receiving HD via left IJ tunneled HD catheter, last evaluated on 10/14 due to poor function, which was exchanged for a 28 cm. Patient now presenting to the ED due to cathete r dislodgment for new HD catheter placement. 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.899 H/O kidney transplant Z94.0 Weight loss R63.4 Gastrointestinal hemorrhage K92.2 Bradycardia R00.1 Left renal mass N28.89 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 Subarachnoid hemorrhage I60.9 Anemia of chronic renal failure N18.9, D63.1 SDH (subdural hematoma) S06.5XAA Failed kidney transplant T86.12 CKD (chronic kidney disease) stage 5, GFR less than 15 ml/min N18.5 Hypertension secondary to other renal disorders I15.1, N28.89 Renal osteodystrophy N25.0 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 ESRD (end stage renal disease) on dialysis N18.6, Z99.2 Hyperkalemia E87.5 Past Medical History: Diagnosis Date BP (high blood pressure) DVT (deep venous thrombosis) Gout Hypertension Kidney problem Pneumonia TBI (traumatic brain injury) 1979 Past Surgical History: Procedure Laterality Date CREATED BY INTERFACE Entered not Verified Procedure Date: 09/19/2010 IR DIALYSIS ACCESS - AV FISTULA EVALUATIONS 11/30/2019 IR Dialysis Access - AV Fistula Evaluations 11/30/2019 Sabrina Velez MD [facility] INTERVENTIONL RAD IR DIALYSIS ACCESS - AV FISTULA EVALUATIONS 01/07/2021 IR Dialysis Access - AV Fistula Evaluations 01/07/2021 Sabrina Velez MD [facility] INTERVENTIONL RAD IR DIALYSIS ACCESS - AV FISTULA EVALUATIONS 09/25/2021 IR Dialysis Access - AV Fistula Evaluations 09/25/2021 Kanu Apple MD [facility] INTERVENTIONL RAD IR DIALYSIS ACCESS - AV FISTULA EVALUATIONS 10/10/2021 IR Dialysis Access - AV Fistula Evaluations 10/10/2021 Walt Lin MD [facility] INTERVENTIONL RAD IR DIALYSIS ACCESS - AV FISTULA EVALUATIONS 11/05/2021 IR Dialysis Access - AV Fistula Evaluations 11/05/2021 Walt Lin MD [facility] INTERVENTIONL RAD IR DIALYSIS ACCESS - TUNNELED LINE 07/30/2018 IR Dialysis Access - Tunneled Line 07/30/2018 Walt Lin MD [facility] INTERVENTIONL RAD IR DIALYSIS ACCESS - TUNNELED LINE 08/30/2018 IR Dialysis Access - Tunneled Line 08/30/2018 Erwin Simon, COMMERCIAL REPRESENTATIVE [facility] INTERVENTIONL RAD IR DIALYSIS ACCESS - TUNNELED LINE 12/27/2020 IR Dialysis Access - Tunneled Line 12/27/2020 Kanu Apple MD [facility] INTERVENTIONL RAD IR DIALYSIS ACCESS - TUNNELED LINE 01/23/2021 IR Dialysis Access - Tunneled Line 01/23/2021 Kanu Apple MD [facility] INTERVENTIONL RAD IR DIALYSIS ACCESS - TUNNELED LINE 03/20/2021 IR Dialysis Access - Tunneled Line 03/20/2021 Tab Harmon MD [facility] INTERVENTIONL RAD IR DIALYSIS ACCESS - TUNNELED LINE 09/29/2021 IR Dialysis Access - Tunneled Line 09/29/2021 Tab Harmon MD [facility] INTERVENTIONL RAD IR DIALYSIS ACCESS - TUNNELED LINE 09/30/2022 IR Dialysis Access - Tunneled Line 09/30/2022 Sabrina Velez MD [facility] INTERVENTIONL RAD IR DIALYSIS ACCESS - TUNNELED LINE 10/14/2022 IR Dialysis Access - Tunneled Line 10/14/2022 Sabrina Velez MD [facility] INTERVENTIONL RAD IR LINE OR TUBE REMOVAL IN RECOVERY ROOM 07/31/2021 IR Line or Tube Removal in Recovery Room 07/31/2021 [facility] INTERVENTIONL RAD KIDNEY TRANSPLANT KIDNEY TRANSPLANT / RECIPIENT/LT Procedure Date: 11/26/2002 PRO ANASTOMOSIS, AV, ANY SITE Right 05/22/2021 AV FISTULA CREATION, DIRECT HEMODIALYSIS, ANY SITE, EG MADYSON FISTULA LOWER EXTREMITY (WRVU 11.9) performed by Odalis Elias MD at [facility] MAIN OR PRO CREAT AV FISTULA, NON-AUTOGENOUS GRAFT Right 12/13/2018 PLACEMENT, AV HEMODIALYSIS GRAFT, SYNTHETIC GRAFT, UPPER EXTREMITY (WRVU 12.03) performed by Mary Garay MD at [facility] MAIN OR PRO CREAT AV FISTULA, NON-AUTOGENOUS GRAFT Left 04/03/2021 PLACEMENT, AV HEMODIALYSIS GRAFT, SYNTHETIC GRAFT, UPPER EXTREMITY (WRVU 12.03) performed by Odalis Elias MD at [facility] MAIN OR PRO DEBRIDEMENT SUBCUTANEOUS TISSUE 20 SQCM/< Left 02/20/2016 DEBRIDEMENT SKIN AND SUBCU, HEAD/NECK performed by Miguel Angel Moreno MD at [facility] MAIN OR PRO DECOMPRESS FOREARM, BRACH ART EXPLOR Left 04/06/2018 FASCIOTOMY, FOREARM, WITH BRACHIAL ARTERY EXPLORATION (WRVU 8.41) performed by Lida Peter MDat [facility] MAIN OR PRO DIRECT REPAIR RUPTURED ANEURYSM, AXILLO-BRACHIAL ARM INCIS Left 04/06/2018 @REPAIR, RUPTURED AXILLARY OR BRACHIAL ARTERY ANEURYSM BY ARM INCISION (WRVU *) performed by Lida Peter MD at [facility] MAIN OR PRO EXC PAROTD, TOTAL, UNILAT RAD NECK Left 02/05/2016 @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, TOTAL, WITH UNILATERAL RADICAL NECK DISSECTION performed by Miguel Angel Moreno MD at [facility] MAIN OR [facility] EXC SKIN MALIG 3.1-4CM FACE, FACIAL Left 02/05/2016 EXC MALIGNANT LESION, 3.1 TO 4.0CM, FACE performed by Miguel Angel Moreno MD at [facility] MAIN OR PRO EXC SKIN MALIG >4CM TRUNK, ARM, LEG 04/19/2012 EXC MALIGNANT LESION, MICHAEL > 4.0CM, TRUNK performed by SABRINA SANCHEZ at [facility] MAIN OR PRO LAP, RADICAL NEPHRECTOMY Left 05/31/2017 @LAPAROSCOPY, RADICAL NEPHRECTOMY (WRVU 25.06) performed by Jax Mills MD at [facility] OR [facility] LIGATN ANGIOACCESS AV FISTULA Left 04/19/2018 LIGATION OR BANDING OF HEMODIALYSIS FISTULA OR GRAFT UPPER EXTREMITY (WRVU 6.25) performed by Odalis Elias MD at [facility] OR [facility] NEGATIVE PRESSURE WOUND THERAPY, LESS THAN OR EQUAL TO 50 SQCM Left 04/19/2018 DRESSING CHANGE (VAC ASSISTED) UP TO 50SQ.CM (WRVU 0.55) performed by Odalis Elias MD [facility] MAIN OR [facility] PHLEB VEINS - EXTREM - TO 20 Right 05/22/2021 STAB PHLEBECTOMY LISBET VEINS 1 EXTREMITY 10-20 INCISIONS (WRVU 7.71) performed by Odalis Elias MD at [facility] OR [facility] REBL VES GRAFT, UP EXTREM Left 04/06/2018 REPAIR BLOOD VESSEL WITH GRAFT OTHER THAN VEIN, UPPER EXTREMITY (WRVU 15.83) performed by Lida Peter MD at [facility] OR [facility] RELIEVE PRESSURE ON NERVE(S) Left 04/06/2018 (MSURG) CARPAL TUNNEL (WRVU 4.82) performed by Silviano Sparks MD at [facility] MAIN OR PRO REPAIR INTERMEDIATE S/A/T/E 2.6-7.5 CM 04/19/2012 REPAIR INTERMEDIATE WOUND, (NO HANDS OR FEET) 2.6 TO 7.5CM, UPPER EXTREMITY performed by SABRINA SANCHEZ at [facility] MAIN OR PRO REPAIR INTERMEDIATE S/A/T/E > 30.0 CM Left 04/14/2018 REPAIR INTERMEDIATE WOUND, (NO HANDS OR FEET) >30.0CM, UPPER EXTREMITY (WRVU 5) performed by Yimi Easton MD at [facility] OR [facility] REVISE MEDIAN N/CARPAL TUNNEL SURG Left 04/06/2018 MEDIAN NERVE DECOMPRESSION (CARPAL TUNNEL RELEASE) (WRVU 4.97) performed by Lida Peter MD [facility] MAIN OR PRO SPLIT GRFT TRUNK, ARM, LEG <100SQCM Left 04/26/2018 SPLIT THICK SKIN GRAFT,100 SQ CM OR LESS, ARMS (WRVU 9.9) performed by Silviano Sparks MD at [facility] MAIN OR PRO SPLIT GRFT, HEAD, FAC, HAND, FEET <100SQCM N/A 02/20/2016 SPLIT THICKNESS SKIN SPLIT GRAFT,100SQ CM OR LESS, NECK performed by Miguel Angel Moreno MD at [facility] MAIN OR PRO SPLIT GRFT, TRUNK, ARM, LEG EA 100SQCM N/A 04/26/2018 EA.ADDITIONAL 100SQ.CM STSG (WRVU 1.72) performed by Silviano Sparks MD at [facility] MAIN OR PRO UNLISTED PROCEDURE VASCULAR SURGERY Left 11/20/2015 LIGATION\REPAIR AV FISTULA performed by Camilo Ireland MD at [facility] MAIN OR PRO UNLISTED PROCEDURE VASCULAR SURGERY Left 11/20/2015 EXCISION VEIN FROM HAND performed by Camilo Ireland MD at [facility] MAIN OR PRO UPPER GI ENDOSCOPY, BIOPSY N/A 05/13/2017 EGD WITH BIOPSY (WRVU 2.49) performed by Aditya Barrera MD at [facility] ENDOSCOPY US RENAL TRANSPLANT BIOPSY 12/31/2010 US RENAL TRANSPLANT RIGHT Right 06/04/2018 US Renal Transplant Right 06/04/2018 [facility] RAD ULTRASOUND Medications: No current facility-administered medications on file prior to encounter. Current Outpatient Medications on File Prior to Encounter Medication Sig Dispense Refill tacrolimus (Prograf) 1 mg IR capsule Take 1 capsule by mouth 2 times daily. 60 capsule 0 pantoprazole EC (Protonix) [address] tablet Take 1 tablet by mouth daily. allopurinoL (Zyloprim) 100 mg tablet Take 1.5 tablets by mouth daily. 30 tablet 11 vitamin B Complex-vitamin C-folic Acid (Tania-julio) 0.8 mg Tablet Take 1 tablet by mouth daily. 90 tablet 3 guaiFENesin ER (Mucinex) 600 mg Tablet Extended Release 12hr Take 600 mg by mouth 2 times daily as needed for Congestion. sevelamer carbonate (Renvela) 800 mg Tablet Take 800 mg by mouth 3 times daily (with meals). aspirin 81 mg Tablet, Delayed Release (E.C.) Take 1 tablet by mouth daily. 30 tablet 3 multivitamin Capsule Take 1 capsule by mouth daily. 30 capsule 0 acetaminophen (TYLENOL) 500 mg Tablet Take 2 tablets by mouth every 6 hours. 30 tablet 1 levETIRAcetam (KEPPRA) 500 mg Tablet Take 1 tablet by mouth 2 times daily. 60 tablet 0 levothyroxine (SYNTHROID) 100 mcg Tablet Take 1 tablet by mouth daily. 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 [employer] Tobacco Use Smoking status: Former Packs/day: 0.25 Years: 1.50 Pack years: 0.38 Types: Cigarettes Quit date: 12/03/2000 Years since quittin.0 Smokeless tobacco: Former Quit date: 04/14/2001 Vaping Use Vaping Use: Never used Substance and Sexual Activity Alcohol use: No Drug use: No Types: Marijuana Comment: havent in years Sexual activity: Not on file Comment: Deferred Other Topics Concern Not on file Social History Narrative Not on file Social Determinants of Health Financial Resource Strain: Not on file Food Insecurity: Not on file Transportation Needs: Not on file Physical Activity: Not on file Housing Stability: Not on file Significant Family History: Family History Problem Relation Age of Onset Pancreatitis Father Pertinent ROS: as per HPI Labs: Lab Results Component Value Date WBC 5.8 10/21/2022 HCT 36.2 (L) 10/21/2022 PLATELET 181 10/21/2022 INR 0.9 08/03/2018 BUN 29 (H) 10/21/2022 CREATININE 6.68 (H) 10/21/2022 ALKPHOS 122 10/19/2022 AST 16 10/19/2022 ALBUMIN 4.0 10/19/2022 BILIDIR 0.2 05/15/2017 BILITOT 0.5 10/19/2022 ALT 10 10/19/2022 PROT 6.7 10/19/2022 K 4.8 10/21/2022 Imaging: in PACS Physical Exam: Pending (to be performed in angio the day of procedure) ASA: Pending (to be assessed in angio the day of procedure) Mallampati Class: Pending (to be assessed in angio the day of procedure) Assessment: 62 y.o. male with dislodged tunneled HD catheter presenting for replacement Reviewed with Attending: Dr. Diaz Plan: Planned procedure: Tunneled HD catheter placement Labs to be performed day of procedure: No labs Sedation: Moderate (Conscious sedation) Prophylactic antibiotic : None Contrast: No contrast Additional medications for procedure: Lidocaine Planned access site: Left IJ Position: Supine Consent: Pending Medications to discontinue (and days held): None Case Urgency:: F- Elective OUT-patient intervention within 3 days 12/24/2022 documented in this encounter ED Notes * Beverly Leblanc RN - 12/24/2022 7:23 PM EDT Food tray provided to patient * Carroll Kulkarni RN - 12/24/2022 3:29 PM EDT 14.5f hemodialysis l chest * Beverly Leblanc RN - 12/24/2022 1:10 PM EDT IV team attempted to place IV - unsuccessful * Beverly Leblanc RN - 12/24/2022 12:55 PM EDT Report given to IR nurse * Real Clark APRN - 12/24/2022 11:47 AM EDT Images from the original note were not included. ED Provider Note HPI: Adama Ram is a 62 y.o. male with past medical history of ESRD on dialysis and TBI with cognitive disability from [facility] via EMS after accidentally dislodging his tunneled dialysis catheter out of his left upper chest. It is unknown how the patient dislodged his tunneled dialysis catheter. Pressure was applied by nursing staff and dressing was applied without complication. Patient has no medical complaints or symptoms whatsoever at this time. Patient typically receives dialysis on Tuesdays, , and Saturdays. Last dialysis was 12/22/2022. Patient was unableto complete dialysis today due to catheter being removed. Patient is oriented to person but is unable to state time, place, or situation due to cognitive decline which is his known baseline. Denies chest pain, shortness of breath, lightheadedness, dizziness, diaphoresis, syncope, hemoptysis, etc. although this is subjective due to baseline mentation. History obtained from patient and EMS personnel ROS as per HPI Vitals: ED Triage Vitals [12/24/22 0940] BP: 97/79 Heart Rate: 57 Resp: 16 Temp: 36.3 ??C (97.3 ??F) Temp src: Oral SpO2: 99 % O2 Device: RA O2 Flow Rate (L/min): n/a Physical Exam Vitals and nursing note reviewed. Constitutional: General: He is not in acute distress. Appearance: Normal appearance. He is normal weight. He is not ill-appearing, toxic-appearing or diaphoretic. HENT: Head: Normocephalic and atraumatic. Right Ear: External ear normal. Left Ear: External ear normal. Nose: Nose normal. No congestion or rhinorrhea. Mouth/Throat: Mouth: Mucous membranes are moist. Pharynx: Oropharynx is clear. Eyes: General: Right eye: No discharge. Left eye: No discharge. Extraocular Movements: Extraocular movements intact. Conjunctiva/sclera: Conjunctivae normal. Pupils: Pupils are equal, round, and reactive to light. Cardiovascular: Rate and Rhythm: Regular rhythm. Bradycardia present. Pulses: Normal pulses. Heart sounds: Normal heart sounds. No murmur heard. No friction rub. No gallop. Pulmonary: Effort: Pulmonary effort is normal. No respiratory distress. Breath sounds: Normal breath sounds. No wheezing or rhonchi. Comments: Prior tunneled dialysis catheter site is clean dry and intact. No active bleeding or drainage. Surrounding erythema, crepitus, or any other signs of complication. Lung sounds clear in all cohen bilaterally with respirations even and unlabored. O2 saturation maintaining 99% on room air Chest: Abdominal: General: Abdomen is flat. Bowel sounds are normal. There is no distension. Palpations: Abdomen is soft. Musculoskeletal: General: No swelling, tenderness, deformity or signs of injury. Normal range of motion. Cervical back: Normal range of motion. Right lower leg: No edema. Left lower leg: No edema. Skin: General: Skin is warm and dry. Capillary Refill: Capillary refill takes less than 2 seconds. Neurological: General: No focal deficit present. Mental Status: He is alert and oriented to person, place, and time. GCS: GCS eye subscore is 4. GCS verbal subscore is 5. GCS motor subscore is 6. Psychiatric: Mood and Affect: Mood normal. Behavior: Behavior normal. Thought Content: Thought content normal. Judgment: Judgment normal. IR Dialysis Access - Tunneled Line Final Result XR Chest One View Final Result 1. No pneumothorax. 2. Streaky basilar opacities may reflect atelectasis. An infectious/inflammatory process is also possible in the correct clinical setting. Thank you for letting us participate in the care of this patient. If you are a health care provider and have any questions regarding this report, please contact the number below. For patients who have questions please contact the health pharmacy care coordinator that requested your imaging first. Course as of 12/24/22 1644 [facility] Dec 24, 2022 1153 Indication for EKG is concern for peaked T waves on ECG monitor EKG shows sinus bradycardia at a rate of [address] elevations or depression seen. All intervals normal. Normal axis. Similar to previous 1334 Chest x-ray shows 1. No pneumothorax. 2. Streaky basilar opacities may reflect atelectasis. An infectious/inflammatory process is also possible in the correct clinical setting. 1541 IR procedure for tunneled dialysis catheter performed. Per IR note: Uneventful placement of Left internal jugular vein tunneled hemodialysis catheter 23 cm in length. Widely patent Left internal jugular vein. Catheter is ok to use. 1545 CBC shows no signs leukocytosis. Hemoglobin 11.1, platelets 165 APTT 23 INR 1.0 PT 11.2 1624 CMP shows potassium of 6.3 and an anion gap of 16 1629 Will page nephrology at this time [address] Girard nephrology who would like patient patient to be admitted with hyperkalemia protocol and potassium monitoring. Potassium does not lower, the patient will need to be dialyzed Procedures Assessment and Plan: 62 y.o. male with past medical history of ESRD on dialysis and TBI with cognitive disability from [facility] via EMS after accidentally dislodging his tunneled dialysis catheter out of his left upper chest. It is unknown how the patient dislodged his tunneled dialysis catheter. Pressure was applied by nursing staff and dressing was applied without complication. Patient has no medical complaints or symptoms whatsoever at this time. Patient typically receives dialysis on Tuesdays, , and Saturdays. Last dialysis was 12/22/2022. Patient was unable to complete dialysis today due to catheter being removed. Patient is oriented to person but is unable to state time, place, or situation due to cognitive decline which is his known baseline. Denies chest pain, shortness of breath, lightheadedness, dizziness, diaphoresis, syncope, hemoptysis, etc. although this is subjective due to baseline mentation. Patient went to IR and had tunneled dialysis catheter replaced successfully without complication Blood work demonstrated potassium of 6.3. EKG shows mildly peaked T waves otherwise unremarkable Discussed case with Dr. Girard nephrology who recommends hyperkalemia protocol and medicine admission. If potassium does not lower, the patient will need dialysis later tonight Did this case involve critical care? No The visit findings, diagnosis, and care plan were discussed with the patient. Disclaimer: Parts of this note has been produced using voice recognition software and may inherently contain errors in program associate. Some sounds may be transcribed incorrectly by the voice recognition software and therefore the reader is urged to use caution when interpreting this document. Real Clark APRN 12/24/22 1644 * Beverly Leblanc RN - 12/24/2022 11:20 AM EDT Pt denies pain, SOB, dizziness. He states that he is to have dialysis at some point this week. NAD. Pt resting in stretcher comfortably. documented in this encounter Miscellaneous Notes * Care Management Discharge - Nini Maza RN - 12/25/2022 10:49 AM EDT CARE MANAGEMENT FINAL DISCHARGE NOTE Chart reviewed, care reviewed with primary team and at interdisciplinary rounds. Patient is medically ready for discharge to [facility] . Needs for Transition of Care: Plan for discharge is: Independent Living Facility Outpatient Agency/Support Group Needs: Hemodialysis Agency Referrals & Follow-up Care: Called placed to [facility] and [facility] and made them aware of patient's 12/25/2022 discharge. Transportation: other *[facility] Wheelchair van/Ambulance? No Functional status prior to admission: Independent, Assistive Equipment Home Environment: Others in the home: other (see comments) (Patient lives in an Assisted Living Facility). Current Living Arrangements: independent/assisted living facility. Accessibility Concerns:Handicap accessible. Current Functional Ability: Independent, Assistive Equipment DME used at home: cane - straight DME Needed at Discharge: Patient is insured through: Primary Insurance: MEDICARE Payor: MEDICARE / Plan: MEDICARE PART A & B / Product Type: *No Product type* / Secondary Insurance: MEDICAID [place] Prescription Coverage: Yes This plan was formulated with input from patient and team. All are in agreement with plan. Nini Maza [facility] [phone] * Initial Assessments - Nini Maza RN - 12/25/2022 8:34 AM EDT Office of Care Management Initial Assessment Nini Maza RN reviewed record and discussed patient with Care Team. Source of Information: Team, bedside nurse, medical record, and Other (Aunt Yenifer Pittmandonna) Introduced self/reviewed role; services accepted. Reason for Hospitalization: reformed my catheter it got removed Covid Vaccination Status: 1st, 2nd & booster Last COVID test: Lab Results Component Value Date [id number] Not Detected 05/22/2021 Past medical History: Past Medical History: Diagnosis Date BP (high blood pressure) DVT (deep venous thrombosis) Gout Hypertension Kidney problem Pneumonia TBI (traumatic brain injury) 1979 Hospitalizations Within the Past 30 Days: no previous admission in last 30 days Current Decision-Making Capacity: Self Advance Care Planning: Do NOT Attempt CPR - Inpatient Received -Advanced Directive: Yes, on file Who is your DPOA-HC?: Sibling (Lucas) Current Coping/Education/Information Needs: Patient currently Lives at the [facility] Current Functional Ability: Independent, Assistive Equipment Functional Status Prior to Admission: Independent, Assistive Equipment Prior ADLs & IADLs: Independent with all ADLs & IADLs Home Environment: Others in the home: other (see comments) (Patient lives in an Assisted Living Facility). Current Living Arrangements: independent/assisted living facility. Accessibility Concerns:Handicap accessible. Resource / Environmental Concerns: Resource/Environmental Concerns: none Current DME: cane - straight Home Address confirmed as: [address] [address] Social & Family Supports: All names listed below confirmed with patient as current and correct Extended Emergency Contact Information Primary Emergency Contact: Leanna, Lucas Address: [address] [place] [address] [place], [place] [id number] [place] [address] Mobile Relation: Sibling Secondary Emergency Contact: Yenifer Frausto Address: [address] [place] [address] [place] Relation: Aunt/Uncle Current Care Provided by: self Provides Primary Care For: no one Caregiver if needed: other (see comments) (Staff at [facility]) Quality of Family relationships: helpful, involved, supportive Community Resources being provided currently: assisted living facility Behavioral Health History: Denied Substance Use/Abuse confirmed: Social History Tobacco Use Smoking Status Former Packs/day: 0.25 Years: 1.50 Pack years: 0.38 Types: Cigarettes Quit date: 12/03/2000 Years since quittin.0 Smokeless Tobacco Former In the past year have you used an illegal drug or used a prescription medication for non-medical reasons?: No 0 No problems reported 1-2 Low level 3-5 Moderate level 6-8 Substantial level 9- 10 Severe level In the past year have you had 5 or more drinks a day containing alcohol?: No 0 to 7 points: Low risk 8 to 15 points: Medium risk 16 to 19 points: High risk 20 to 40 points: Addiction likely Other Pertinent/Service Specific Information: NA Health/Prescription Coverage: Primary Insurance: MEDICARE Payor: MEDICARE / Plan: MEDICARE PART A & B / Product Type: *No Product type* / Secondary Insurance: MEDICAID [place] ONLY if patient has Medicare A&B - Does this patient have secondary insurance?: Yes ; Prescription Coverage: Yes Preferred Pharmacy: [id number] - [place], [place] - [address] [place] [address] AT [facility] & [address] [address] [facility] - [place], [place] - [address] [place] [address] [address] [facility] [id number] [place] Status: Patient is a : No Primary Care Provider confirmed: Ileana Azevedo, CATRACHITO [phone] Patient/Caregiver Goals of Treatment: Return to [facility] Potential Needs for Transition of Care: none Agency Referrals: [address] [address] Resumption of Hemodialysis at: [address] [address] Patient is a current client on: Wednesday, , Wednesday at 1100. Transportation to HD is provided by: [facility] Note routed to a [employer] who will communicate referrals to facilities and provide any required information. Transportation: other (see comments) (Needs a ride with [facility]) Transportation Anticipated: other (see comments) ([facility]) Concerns to be Addressed: no discharge needs identified Assessment: Patient is admitted to med service for hyperkalemia Plan: Return to [facility] when MRVíctor Referral inf for resumption of dialysis. No housing, transportation, insurance, resources concerns identified at this time. Supports in place to achieve a safe post-hospital transition. No identified barriers to accessing necessary care and/or follow-up after discharge. Monitor pt progress Review recommendations from other providers Make referrals as needed Monitor for DME needs. A member of the Care Management team will continue to monitor progress, follow for continuity of care and assist with transition of care planning. Nini Maza [facility] [phone] * Plan of Care - Sue Ventura RN - 12/25/2022 2:18 AM EDT Problem: Adult Inpatient Plan of Care Goal: Plan of Care Review Outcome: Ongoing (Interventions Implemented as Appropriate) Goal: Patient-Specific Goal (Individualized) Outcome: Ongoing (Interventions Implemented as Appropriate) Goal: Absence of Hospital-Acquired Illness or Injury Outcome: Ongoing (Interventions Implemented as Appropriate) Goal: Optimal Comfort and Wellbeing Outcome: Ongoing (Interventions Implemented as Appropriate) Goal: Readiness for Transition of Care Outcome: Ongoing (Interventions Implemented as Appropriate) Problem: Infection Goal: Absence of Infection Signs and Symptoms Outcome: Ongoing (Interventions Implemented as Appropriate) Problem: Fall Injury Risk Goal: Absence of Fall and Fall-Related Injury Outcome: Ongoing (Interventions Implemented as Appropriate) Problem: Electrolyte Imbalance (Chronic Kidney Disease) Goal: Electrolyte Balance Outcome: Ongoing (Interventions Implemented as Appropriate) The patient is A/O x4; pleasant, calm, and cooperative; slow to respond at times; able to make his needs known; VSS on RA. Have dressing over the left upper chest where the old catheter was; New leftIJ tunneled HD cath was placed with CHG dressing; CDI; PIV on right FA: SL. Patient uses walking sticks at baseline; he is x1 person standby assist using FWW; slow steady gait. Per patient he have reading glasses and partial upper dentures/plates that were left in the correction he lives at. Check his blood sugar once when he got here from ED after they gave the insulin IV/d10/calcium gluc combo.BMP was rechecked and potassium has gone down WNL. Patient was connected to telemetry as ordered and is bradycardic on baseline. Per patient he sometimes urinate but not always. He takes pills without problem and no swallowing difficulty observed. Call light placed within reach; all needs attended;clustered care and promoted adequate rest period. Will continue plan of care. * Consult Note - Chi España RPH - 12/24/2022 10:13 PM EDT TelePharmacy Home Medication List Update for Medication Reconciliation 12/24/22 10:14 PM Adama Ram 1960 Allergies Allergen Reactions Benazepril Hcl Codeine Other (See Comments) Patient does not know reaction Hydrochlorothiazide Pollen Extracts Sneezing/runny nose Person Interviewed: patient Quality of Interview/accuracy of medication list: excellent Sources used to compile medication list: [x] Epic medication list [x] SureScripts [] PCP/Specialist list [] Retail pharmacy [] Patient list [] MAR [] Other Changes made to home medication list: Additions: none Deletions: mucinex Changes: none Additional Notes: none Recommended changes: none The home medication list is now updated to the best of my knowledge and is ready to be reconciled by the provider. Please contact the TelePharmacy Medication Reconciliation Pharmacist at for any questions. Chi España RPH * Consult Note - Ortega Girard MD - 12/24/2022 9:57 PM EDT Asked to see this 62 yo man with esrd on hd for dialysis needs by Dr. Joyce. In brief, Adama well known to our service. 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 His course on dialysis has been complicated by mult blood access failures. He is maintaine d on dialysis via a permanent tunneled line but this either fell or was pulled out? He last dialyzed on having missed today's treatment. Catheter replaced today by IR (left IJ position) but postprocedure labs show high K (6.3, ecg shows sr with normal intervals and twaves, viewed personally).He is asymptomatic without sob, cp, or uremic sx. Scheduled Meds: [START ON 12/25/2022] allopurinoL 150 mg Oral Daily [START ON 12/25/2022] aspirin EC 81 mg Oral Daily levETIRAcetam 500 mg Oral BID [START ON 12/25/2022] levothyroxine 100 mcg Oral Daily [START ON 12/25/2022] pantoprazole EC 20 mg Oral Daily sevelamer carbonate 800 mg Oral TID WC tacrolimus 1 mg Oral BID [START ON 12/25/2022] vitamin B Complex-vitamin C-folic Acid 1 tablet Oral Daily sodium chloride 0.9 % (flush) 5 mL Intravenous BID heparin (porcine) 5,000 Units Subcutaneous Q8H EDWARD Continuous Infusions: PRN Meds:.sodium chloride 0.9 % (flush), lidocaine, senna-docusate, acetaminophen BP 114/77 Pulse 55 Temp 36.8 ??C (98.2 ??F) (Oral) Resp 13 Ht 177.8 cm (5' 10) Wt 72.7 kg (160 lb 4.4 oz) SpO2 99% BMI 23.00 kg/m?? Thin but o/w reasonably well appearing Alert Cooperative New left ij with minimal blood on dressing at exit Chest clear Heart reg Abd soft Ext with mult old accesses, none are functional, none tender NF motor DATA reviewed Hb at goal Lytes ok except K 6.3 Phos 3.4, ca 9.3, alb 4.3 A/P High K Due for hd but can safely shift tonight with insulin and dextrose (monitor K closely and monitor sugar closely to avoid low sugar) Give one dose sodium zirconium cyclosilicate HD in am Discussed with hosp med and ED * Brief Op Note - Carroll Diaz MD - 12/24/2022 3:30 PM EDT INTERVENTIONAL RADIOLOGY BRIEF PROCEDURE NOTE Operators: Carroll Diaz MD, Attending Patient Name: Adama Ram 12/24/22 Post-operative diagnosis/Indication: ESRD, Lost access Procedure Performed: THDC Placement L Findings of the procedure: patent small left IJ EBL: <20 mL Complications: No immediate Plan/Disposition: Recovery in interventional radiology postprocedure unit, then return to inpatientunit for further care. 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, denies chest pain/sob, gcs-15, warm/pink/dry, ambulated to triage nita well documented in this encounter Plan of Treatment Not on file documented as of this encounter Procedures Procedure Name Priority Date/Time Associated Diagnosis Comments POCT GLUCOSE Routine 12/25/2022 11:18 AM EDT HEMOGRAM Routine 12/25/2022 1:06 AM EDT DIFFERENTIAL, AUTOMATED Routine 12/26/19 1:06 AM EDT CBC (WITH DIFF) Routine 12/25/2022 1:06 AM EDT BASIC METABOLIC PANEL Routine 12/25/2022 1:06 AM EDT BASIC METABOLIC PANEL Timed 12/24/2022 9:50 PM EDT POCT GLUCOSE Routine 12/24/2022 9:27 PM EDT POCT GLUCOSE Routine 12/24/2022 6:53 PM EDT IR DIALYSIS ACCESS - TUNNELED LINE STAT 12/24/2022 3:27 PM EDT HEMOGRAM STAT 12/24/2022 3:00 PM EDT DIFFERENTIAL, AUTOMATED STAT 12/25/19 3:00 PM EDT HC PARTIAL THROMBOPLASTIN TIME STAT 12/24/2022 3:00 PM EDT PROTHROMBIN TIME STAT 12/24/2022 3:00 PM EDT CBC (WITH DIFF) STAT 12/24/2022 3:00 PM EDT PHOSPHORUS STAT 12/24/2022 3:00 PM EDT MAGNESIUM STAT 12/24/2022 3:00 PM EDT COMPREHENSIVE METABOLIC PANEL STAT 12/24/2022 3:00 PM EDT XR CHEST ONE VIEW STAT 12/24/2022 12: 04 PM EDT EKG 12-LEAD STAT 12/24/2022 11:35 AM EDT documented in this encounter Results * POCT Glucose (12/25/2022 11:18 AM EDT) Pathologist [facility] Glucose, POC 109 65 - 199 mg/dL [facility] Comment: Supplemental ranges: <140 mg/dL before meals <180 mg/dL all other times of the day Blood 12/25/2022 11:1 8 AM EDT 12/25/2022 11:18 AM EDT Benoit Izquierdo MD POINT OF CARE TEST O RDERABLES [facility] [address] * Differential, Automated (12/25/2022 1:06 AM EDT) Neutrophil % 68.3 % [facility] Neutrophil Absolute 3.66 1.70 - 6.10 x10(3)/mcL [facility] Lymph % 20.7 % [facility] Lymphocytes Abs 1.1 0.9 - 3.2 x10(3)/[facility] Monocyte % 7.6 % [facility] Monocyte Abs 0.4 0.3 - 0.9 x10(3)/[facility] [address] [facility] Eos % 2.6 % [facility] Eosinophils Abs 0.1 0.0 - 0.4 x10(3)/[facility] [address] [facility] Basophil % 0.6 % [facility] Baso Absolute 0.0 0.0 - 0.1 x10(3)/[facility] [address] [facility] Immature Gran % 0.20 % [facility] Comment: Immature granulocytes(IG's)percentage and absolute count will include metamyelocytes, myelocytes, and promyelocytes. Blood smears from CBCs yielding IG's will be scanned manually for concordance. If this scan disagrees with the automated IG or if promyelocytes are noted, a manual differential will be performed. Immature Gran Absolute 0.01 0.00 - 0.04 x10(3)/[facility] [address] [facility] Blood 12/25/2022 1:06 AM EDT 12/25/2022 1:14 AM EDT Narrative Resulting Agency Comment Spec In Lab Naz Colunga APRN HEMATOLOGY ORDERABLE S [facility] [address] * (ABNORMAL) Hemogram (12/25/2022 1:06 AM EDT) White Blood Cell 5.4 4.0 - 9.5 x10(3)/mc L [facility] Red Blood Cell 3.46(L) 4.58 - 5.54 x10(6)/mc L [facility] Hemoglobin 11.1(L) 13.7 - 16.5 g/dL [facility] Hematocrit 33.5(L) 40.5 - 48.5 % [facility] Mean Cell Volume 96.8(H) 82.9 - 93.1 fL [facility] Mean Cell Hemoglobin 32.1 27.5 - 32.1 pg [facility] Mean Cell Hemoglobin Concentration 33.1 32.0 - 35.7 g/dL [facility] Platelet 167 145 - 357 x10(3)/mc L [facility] RDW Standard Deviation 44.0 36.0 - 45.0 fL [facility] RDW coefficient of variation 12.5 11.4 - 13.8 % [facility] Mean Platelet Volume 8.9 7.6 - 12.9 fL [facility] NRBC% auto 0.0 % [facility] NRBC Absolute 0.000 0.000 - 0.000 x10(3)/mc L [facility] Blood 12/25/2022 1:06 AM EDT 12/25/2022 1:14 AM EDT Narrative Resulting Agency Comment Spec In Lab Naz Colunga COMMERCIAL REPRESENTATIVE HEMATOLOGY ORDERABLE S [facility] [address] * (ABNORMAL) Basic Metabolic Panel (non-fasting) (12/25/2022 1:06 AM EDT) Glucose 116 65 - 199 mg/dL [facility] Comment:Diabetes: >=200 mg/d L plus symptoms Blood Urea Nitrogen 51(H) 10 - 20 mg/dL [facility] Creatinine 9.99(H) 0.80 - 1.50 mg/dL [facility] Sodium 137 135 - 145 mmol/L [facility] Potassium 4.9 3.5 - 5.0 mmol/L [facility] Comment: Please note: ??Patients with WBC >100,000 may have falsely elevated Potassium levels. ??For accurate Potassium quantification in these patients send serum separator tube (gold top) for subsequent determinations. ??Contact the Clinical Chemistry Laboratory if there are any questions. Chloride 95(L) 98 - 107 mmol/L [facility] Carbon Dioxide 26 22 - 31 mmol/L [facility] Anion Gap 16(H) 5 - 15 mmol/L [facility] Calcium 9.1 8.5 - 10.5 mg/dL [facility] Est Glomerular Filtration Rate 5(L) >=60 mL/min/1. 73 m?? [facility] Comment: This patient's estimated GFR [...] Resulting Agency Comment Spec In Lab Naz Colunga APRN CHEMISTRY ORDERABLES [facility] [address] * (ABNORMAL) Basic Metabolic Panel (non-fasting) (12/24/2022 9:50 PM EDT) Glucose 129 65 - 199 mg/dL [facility] Comment:Diabetes: >=200 mg/d L plus symptoms Blood Urea Nitrogen 50(H) 10 - 20 mg/dL [facility] Creatinine 9.72(H) 0.80 - 1.50 mg/dL [facility] Sodium 137 135 - 145 mmol/L [facility] Potassium 4.9 3.5 - 5.0 mmol/L [facility] Comment: result rechecked-imm Please note: ??Patients with WBC >100,000 may have falsely elevated Potassium levels. ??For accurate Potassium quantification in these patients send serum separator tube (gold top) for subsequent determinations. ??Contact the Clinical Chemistry Laboratory if there are any questions. Chloride 95(L) 98 - 107 mmol/L [facility] Carbon Dioxide 25 22 - 31 mmol/L [facility] Anion Gap 17(H) 5 - 15 mmol/L [facility] Calcium 9.3 8.5 - 10.5 mg/dL [facility] Est Glomerular Filtration Rate 6(L) >=60 mL/min/1. 73 m?? [facility] Comment: This patient's estimated GFR [...] and symptoms in addition to eGFR. Blood 12/24/2022 9:50 PM EDT 12/24/2022 10:02 PM EDT Narrative Resulting Agency Comment Spec In Lab Naz Colunga APRN CHEMISTRY ORDERABLES Performing Organization Address City/[facility] Co de Phone Number [facility] [place] [address] * POCT Glucose (12/24/2022 9:27 PM EDT) Glucose, POC 132 65 - 199 mg/dL [facility] Comment: Supplemental ranges: <140 mg/dL before meals <180 mg/dL all other times of the day Blood 12/24/2022 9:27 PM EDT 12/24/2022 9:27 PM EDT Krysta Joyce MD POINT OF CARE TEST O RDERABLES Performing Organization Address [facility] Co de Phone Number [facility] [address] * POCT Glucose (12/24/2022 6:53 PM EDT) Glucose, POC 97 65 - 199 mg/dL [facility] Comment: Supplemental ranges: <140 mg/dL before meals <180 mg/dL all other times of the day Blood 12/24/2022 6:53 PM EDT 12/24/2022 6:53 PM EDT Krysta Joyce MD POINT OF CARE TEST O RDERABLES Performing Organization Address City/[facility]/ZIP Co de Phone Number [facility] [address] * IR Dialysis Access - Tunneled Line (12/24/2022 3:27 PM EDT) Anatomical Region Laterality Modality Abdomen X-Ray Angiograph y Narrative 12/24/2022 3:39 PM EDT Preoperative Diagnosis: ? Renal Failure. Postoperative Diagnosis: ?? Same Procedure Performed: Tunneled hemodialysis catheter placement. Estimated Blood Loss: Less than 25 cc. Operators: Carroll Diaz MD, Attending Fluoroscopy time: Please see technologist eDH note for fluoroscopy dose and time First or second generation cephalosporin was not ordered for antimicrobial prophylaxis as it is not indicated or strongly backed by the medical literature. Anesthesia: 1. Fentanyl ??during continuous hemodynamic monitoring including pulse oximetry, heart rate and blood pressure was provided by an independent qualified trained Nurse. ??Please see nursing notes for exact medication dosages. 2. 1% lidocaine, local. The patient was informed of the risks, benefits, and alternatives to the procedure and gave written consent, which was then placed in the chart. Appropriate time-out was performed prior to the procedure. Procedures: 1. ??Left internal jugular vein puncture using ultrasound guidance. 2. Subcutaneous tunnel creation along the Left chest to the original venotomy site. 3. Placement of tunneled hemodialysis catheter through chest tunnel. 4. Venous dilation Left jugular vein. 5. Placement of tunneled hemodialysis catheter through initial venotomy. 6. Spot fluoroscopic image documenting catheter placement. Description of Procedure: Ultrasound of the Left neck demonstrates a widely patent right internal jugular vein. An image was stored for documentation. All elements of maximal sterile barrier technique were met including cap, mask, sterile gown, sterile gloves, large sterile sheet, hand hygiene and 2% chlorhexidine for cutaneous antisepsis. The Left neck and chest was prepped and draped in the usual sterile fashion. ??Local anesthetic was administered. ??Using ultrasound guidance, the Left internal jugular vein was punctured, and an 0.018 wire was advanced to the level of the right atrium. ??A short micro-introducer was advanced over the wire and secured in the vein. The wire was removed, and the introducer was capped. Using local anesthetic, as well as blunt and sharp dissection, a subcutaneous tunnel was created along the Left chest wall to the initial venotomy site. ??A 23 cm tip-to-cuff hemodialysis catheter was then advanced through the tunnel to the original venotomy site. ??A stiff wire was then advanced through the micro-introducer to the level of the inferior vena cava. ??The tract was dilated using a 16-Bangladeshi Yarely dilator under fluoroscopic guidance. ??The dilator was removed. ??A valved peel-away catheter was then advanced over the wire and secured within the central veins. The dilator and wire were removed, and the catheter was delivered through the valved peel-away sheath. ??The peel-away sheath was removed. ??A spot fluoroscopic image demonstrates the catheter tip to lie within the mid right atrium. ??There is no kinking of the catheter. ??The catheter was flushed and demonstrated good bi-directional flow. ??The catheter was packed with heparin. ??The catheter was sutured into position. ?? Impression: Uneventful placement of Left internal jugular vein tunneled hemodialysis catheter 23 cm in length. Widely patent Left internal jugular vein. Catheter is ok to use. I, the attending Interventional Radiologist performed the entire procedure. Real Clark APRN IMG IR ORDERABLES * Phosphorus (12/24/2022 3:00 PM EDT) [facility] Phosphorus 3.4 2.5 - 4.5 mg/dL [facility] Blood Venous Draw / Unknown 12/24/2022 3:00 PM EDT 12/24/2022 3:43 PM EDT Narrative Resulting Agency Comment Spec In Lab Real Clark COMMERCIAL REPRESENTATIVE CHEMISTRY ORDERABLES [facility] [address] * Differential, Automated (12/24/2022 3:00 PM EDT) [facility] Neutrophil % 62.6 % [facility] Neutrophil Absolute 2.88 1.70 - 6.10 x10(3)/[facility] [address] [facility] Lymph % 25.2 % [facility] Lymphocytes Abs 1.2 0.9 - 3.2 x10(3)/mcL [facility] Monocyte % 8.7 % [facility] Monocyte Abs 0.4 0.3 - 0.9 x10(3)/[facility] [address] [facility] Eos % 2.6 % [facility] Eosinophils Abs 0.1 0.0 - 0.4 x10(3)/[facility] [address] [facility] Basophil % 0.7 % [facility] Baso Absolute 0.0 0.0 - 0.1 x10(3)/[facility] [address] [facility] Immature Gran % 0.20 % [facility] Comment: Immature granulocytes(IG's)percentage and absolute count will include metamyelocytes, myelocytes, and promyelocytes. Blood smears from CBCs yielding IG's will be scanned manually for concordance. If this scan disagrees with the automated IG or if promyelocytes are noted, a manual differential will be performed. Immature Gran Absolute 0.01 0.00 - 0.04 x10(3)/[facility] [address] [facility] Blood 12/24/2022 3:00 PM EDT 12/24/2022 3:30 PM EDT Narrative Resulting Agency Comment Spec In Lab Real Clark COMMERCIAL REPRESENTATIVE HEMATOLOGY ORDERABLE S [facility] [address] * (ABNORMAL) Hemogram (12/24/2022 3:00 PM EDT) White Blood Cell 4.6 4.0 - 9.5 x10(3)/mc L [facility] Red Blood Cell 3.53(L) 4.58 - 5.54 x10(6)/ L [facility] Hemoglobin 11.1(L) 13.7 - 16.5 g/dL [facility] Hematocrit 34.9(L) 40.5 - 48.5 % [facility] Mean Cell Volume 98.9(H) 82.9 - 93.1 fL [facility] Mean Cell Hemoglobin 31.4 27.5 - 32.1 pg [facility] Mean Cell Hemoglobin Concentration 31.8(L) 32.0 - 35.7 g/dL [facility] Platelet 165 145 - 357 x10(3)/ L [facility] RDW Standard Deviation 44.9 36.0 - 45.0 fL [facility] RDW coefficient of variation 12.4 11.4 - 13.8 % [facility] Mean Platelet Volume 9.0 7.6 - 12.9 fL [facility] NRBC% auto 0.0 % [facility] NRBC Absolute 0.000 0.000 - 0.000 x10(3)/mc L [facility] Blood 12/24/2022 3:00 PM EDT 12/24/2022 3:30 PM EDT Narrative Resulting Agency Comment Spec In Lab Real Clark APRN HEMATOLOGY ORDERABLE S Performing Organization Address [facility] Co de Phone Number [facility] [address] * Magnesium (12/24/2022 3:00 PM EDT) Magnesium 0.99 0.69 - 1.07 mmol/L [facility] Blood 12/24/2022 3:00 PM EDT 12/24/2022 3:30 PM EDT Narrative Resulting Agency Comment Spec In Lab Real Clark APRN CHEMISTRY ORDERABLES Performing Organization Address [facility] Phone Number [facility] [address] * (ABNORMAL) APTT (12/24/2022 3:00 PM EDT) Partial Thromboplastin Time 23(L) 25 - 37 sec [facility] Comment: The PTT is NOT appropriate for heparin monitoring. Use the Anti-Xa level for heparin monitoring (HEP UFH) or LMWH monitoring (HEP LMW). A PTT less than 37 seconds generally indicates adequate hemostasis. Blood 12/24/2022 3:00 PM EDT 12/24/2022 3:30 PM EDT Narrative Resulting Agency Comment Spec In Lab Real Clark APRN HEMATOLOGY ORDERABLE S Performing Organization Address [facility] Co de Phone Number [facility] [address] * Prothrombin Time (12/24/2022 3:00 PM EDT) Prothrombin Time 11.2 9.4 - 12.5 sec [facility] International Normalization Ratio 1.0 [facility] Comment: An INR <2.0 indicates adequate procoagulant activity for hemostasis in most patients without underlying bleeding disorders, though the INR may not adequately reflect hemostatic capacity in patients with liver disease and synthetic impairment. The recommended target INR range for therapeutic anticoagulation is 2.0 ? 3.0 for most applications, though lower and higher ranges may be appropriate depending on clinical circumstances. Blood 12/24/2022 3:00 PM EDT 12/24/2022 3:30 PM EDT Narrative Resulting Agency Comment Spec In Lab Real Clark COMMERCIAL REPRESENTATIVE HEMATOLOGY ORDERABLE S [facility] [address] * (ABNORMAL) Comprehensive metabolic panel (non-fasting) (12/24/2022 3:00 PM EDT) Glucose 95 65 - 199 mg/dL [facility] Comment:Diabetes: >=200 mg/d L plus symptoms Blood Urea Nitrogen 47(H) 10 - 20 mg/dL [facility] Creatinine 9.43(H) 0.80 - 1.50 mg/dL [facility] Sodium 140 135 - 145 mmol/L [facility] Potassium 6.3(Criti constance) 3.5 - 5.0 mmol/L [facility] Comment: called by DIRK/read back by Real Clark/ 12/24/22 16:25 Please note: ??Patients with WBC >100,000 may have falsely elevated Potassium levels. ??For accurate Potassium quantification in these patients send serum separator tube (gold top) for subsequent determinations. ??Contact the Clinical Chemistry Laboratory if there are any questions. Chloride 98 98 - 107 mmol/L [facility] Carbon Dioxide 26 22 - 31 mmol/L [facility] Anion Gap 16(H) 5 - 15 mmol/L [facility] Calcium 9.3 8.5 - 10.5 mg/dL [facility] Protein, Total 7.2 6.1 - 8.0 g/dL [facility] Albumin 4.3 3.2 - 5.2 g/dL [facility] Aspartate Aminotransferase 15 0 - 39 unit/L [facility] Alanine Aminotransferase 12 0 - 55 unit/L [facility] Alkaline Phosphatase 120 40 - 130 unit/L [facility] Bilirubin, Total 0.4 0.2 - 1.3 mg/dL [facility] Est Glomerular Filtration Rate 6(L) >=60 mL/min/1. 73 m?? [facility] Comment: This patient's estimated GFR was [...] and symptoms in addition to eGFR. Blood 12/24/2022 3:00 PM EDT 12/24/2022 3:30 PM EDT Narrative Resulting Agency Comment Spec In Lab Real Clark APRN CHEMISTRY ORDERABLES Performing Organization Address City/State/[facility] Co de Phone Number [facility] [address] * XR Chest One View (12/24/2022 12:04 PM EDT) Anatomical Region Laterality Modality Chest N/A Digital Radiogra phy Impressions 12/24/2022 12:36 PM EDT 1. ??No pneumothorax. 2. ??Streaky basilar opacities may reflect atelectasis. An infectious/inflammatory process is also possible in the correct clinical setting. Thank you for letting us participate in the care of this patient. ??If you are a health care provider and have any questions regarding this report, please contact the number below. ??For patients who have questions please contact the health pharmacy care coordinator that requested your imaging first. ? Electronically signed by: AMA HORNE MD, [facility] ([phone]), at 12/24/2022 12:36 PM Narrative 12/24/2022 12:36 PM EDT EXAMINATION: XR CHEST ONE VIEW CLINICAL HISTORY: Recent Pulled Out Dialysis Catheter Left Chest TECHNIQUE: 1 view of the chest COMPARISON: Chest radiograph 12/18/2018 FINDINGS: Streaky opacity at the right lung base and retrocardiac left lung. No pneumothorax or pleural effusion. The cardiomediastinal silhouette is normal in size. No vascular congestion. No acute osseous abnormality. Procedure Note Ama Horne MD - 12/24/2022 EXAMINATION: XR CHEST ONE VIEW CLINICAL HISTORY: Recent Pulled Out Dialysis Catheter Left Chest TECHNIQUE: 1 view of the chest COMPARISON: Chest radiograph 12/18/2018 FINDINGS: Streaky opacity at the right lung base and retrocardiac left lung. No pneumothorax or pleural effusion. The cardiomediastinal silhouette isnormal in size. No vascular congestion. No acute osseous abnormality. IMPRESSION 1. No pneumothorax. 2. Streaky basilar opacities may reflect atelectasis. An infectious/inflammatory process is also possible in the correct clinical setting. Thank you for letting us participate in the care of this patient. If youare a health care provider and have any questions regarding this report,please contact the number below. For patients who have questions please contactthe health pharmacy care coordinator that requested your imaging first. Electronically signed by: AMA HORNE MD, [facility]([phone]), at 12/24/2022 12:36 PM Real Clark COMMERCIAL REPRESENTATIVE IMG DX ORDERABLES * EKG 12 Lead (12/24/2022 11:35 AM EDT) Ventricular rate 52 BPM MUSE SYSTEM Atrial Rate 52 BPM MUSE SYSTEM P-R Interval 166 ms MUSE SYSTEM QRS Duration 80 ms MUSE SYSTEM Q-T Interval 446 ms MUSE SYSTEM QTC Calculated (Bezet) 414 ms MUSE SYSTEM Calculated P [place] 66 degrees MUSE SYSTEM Calculated R [place] 58 degrees MUSE SYSTEM Calculated T [place] 60 degrees MUSE SYSTEM INTERPRETATION Sinus bradycardia Otherwise normal ECG When compared with ECG of 19-OCT-2022 20:05, No significant change was found Confirmed by MD Brooks Danette ([id number]) on 12/24/2022 1:23:57 PM MUSE SYSTEM 12/24/2022 11:3 5 AM EDT 12/24/2022 1:23 PM EDT Real Clark CATRACHITO ECG ORDERABLES MUSE SYSTEM documented in this encounter Visit Diagnoses Diagnosis Hyperkalemia- Primary Hyperpotassemia ESRD on dialysis End stage renal disease Hyperkalemia Hyperpotassemia Complication of vascular dialysis catheter, unspecified complication, initial encounter documented in this encounter Admitting Diagnoses Diagnosis Hyperkalemia Hyperpotassemia documented in this encounter Administered Medications Inactive Administered Medications - up to 3 most recent administrations Medication Order MAR Action Action Date Dose Rate Site allopurinoL (Zyloprim) tablet 150 mg 150 mg, Oral, DAILY, First dose on Wed12/25/22 at 0900, Until Discontinued, Routine Given 12/25/2022 12:30 PM EDT 150 mg aspirin EC tablet 81 mg 81 mg, Oral, DAILY, First dose on Wed12/25/22 at 0900, Until Discontinued, Routine Given 12/25/2022 12:30 PM EDT 81 mg calcium gluconate 1g in sodium chloride 0.9% 50mL 1 g, Intravenous, ONCE, 1 dose, On Mariza 12/24/22 at 1642, Administer over 6 Minutes, Warning Vesicant/Irritant Medication Patient must be on panel monitor when receiving calcium; calcium can exacerbate digoxin toxicity. Since the effect of calcium is transient, patients with hyperkalemia also require treatments to shift potassium into cells and increase potassium excretion. Infusion over 6 minutes - Bedside monitor required. New Bag 12/24/2022 5:05 PM EDT 1 g 500 mL/hr dextrose 10% 250 mL IV bolus at 1,000 mL/hr, Intravenous, ONCE, 1 dose, On Mariza 12/24/22 at 1655, Give 250 mL of dextrose 10% intravenously, immediately followed by regular insulin 5 units intravenously. New Bag 12/24/2022 5:23 PM EDT 1000 mL/hr fentaNYL (pf) (50 mcg/mL) multi-dose injection 25-50 mcg 25-50 mcg, Intravenous, EVERY 3 MIN PRN, Starting on Mariza 12/24/22 at 1404, Until Wed12/24/22 at 1852, Pain, per unit protocol, For use in Interventional Radiology (IR) only for procedural sedation with direct provider supervision and verbal order. - Start dose: 50 mcg (reduce dose to 25 mcg if history of sedation sensitivity). - Titration dose: 25-50 mcg IV, (based on patient response) every 3 minutes PRN to maintain procedural pain less than 2 per Pain Scale. Maximum dose: 50 mcg/dose, 250 mcg/hour, Angio/IR (Intra-Procedure), Routine Given 12/24/2022 3:03 PM EDT 50 mcg heparin (porcine) (1,000 units/mL) injection 1,000-10,000 Units 1,000-10,000 Units, Intercatheter, ONCE IN DIALYSIS PRN, 1 dose, Starting on Wed12/25/22 at 0618, Until Wed12/25/22 at 1143, Line Care, Per Protocol, Catheter lock use catheter specified fill volume per dialysis protocol. For use in Dialysis only. Procedure ID: [id number] (Hemodialysis CVAD Procedure - Care and Maintenance) in Clinical Policies., Dialysis (Intra-Procedure), Routine Given 12/25/2022 11:43 AM EDT 4,600 Units heparin (porcine) (1,000 units/mL) injection 2,000 Units 2,000 Units, Intravenous, ONCE IN DIALYSIS, 1 dose, On Wed12/25/22 at 0715, For use in Dialysis only., Dialysis (Intra-Procedure), Routine Given 12/25/2022 8:11 AM EDT 2,000 Units heparin (porcine) (5,000 units/1 mL) subcutaneous injection 5,000 Units 5,000 Units, Subcutaneous, EVERY 8 HOURS SCHEDULED, First dose on Wed12/24/22 at 2200, Until Discontinued, Routine Given 12/25/2022 1:41 PM EDT 5,000 Units Given 12/25/2022 5:27 AM EDT 5,000 Units Given 12/24/2022 9:53 PM EDT 5,000 Units insulin regular (HumuLIN R,NovoLIN R) (100 unit/mL) injection vial 5 Units 5 Units, Intravenous, ONCE, 1 dose, On Wed12/24/22 at 1655, Give 250 mL of dextrose 10% intravenously, immediately followed by regular insulin 5 units intravenously., Routine Given 12/24/2022 6:02 PM EDT 5 Units levETIRAcetam (Keppra) tablet 500 mg 500 mg, Oral, 2 TIMES DAILY, First dose on Wed12/24/22 at 2100, Until Discontinued, Routine Given 12/25/2022 12:32 PM EDT 500 mg Given 12/24/2022 9:53 PM EDT 500 mg levothyroxine (Synthroid) tablet 100 mcg 100 mcg, Oral, DAILY, First dose on Wed12/25/22 at 0600, Until Discontinued, Routine Given 12/25/2022 5:27 AM EDT 100 mcg lidocaine (Xylocaine) 1% (10 mg/mL) injection 10 mg 10 mg, Subcutaneous, ONCE, 1 dose, On Wed12/24/22 at 1406, For use in Interventional Radiology (IR) only for procedure with direct provider supervision and verbal order., Angio/IR (Intra-Procedure), Routine Given 12/24/2022 2:06 PM EDT 10 mg pantoprazole EC (Protonix) tablet 20 mg 20 mg, Oral, DAILY, First dose on Wed12/25/22 at 0900, Until Discontinued, DO NOT CRUSH OR OPEN Given 12/25/2022 12:30 PM EDT 20 mg senna-docusate (Pericolace) 8.6-50 mg per tablet 2 tablet 2 tablet, Oral, 2 TIMES DAILY PRN, Starting on Wed12/24/22 at 1852, Until Wed12/25/22 at 1659, Constipation, Routine Given 12/25/2022 12:30 PM EDT 2 tablets sevelamer carbonate (Renvela) tablet 800 mg 800 mg, Oral, 3 TIMES DAILY WITH MEALS, First dose on Wed12/24/22 at 2100, Until Discontinued, DO NOT CRUSH OR OPEN, Routine Given 12/25/2022 12:30 PM EDT 800 mg Given 12/25/2022 7:51 AM EDT 800 mg Given 12/24/2022 10:04 PM EDT 800 mg sodium chloride 0.9 % (flush) (BD PosiFlush Normal Saline 0.9) flush 5 mL 5 mL, Intravenous, 2 TIMES DAILY, First dose on Wed12/24/22 at 2100, Until Discontinued, Routine Given 12/25/2022 9:00 AM EDT 5 mLs Given 12/24/2022 9:53 PM EDT 5 mLs sodium chloride 0.9% infusion 100 mL, Intravenous, EVERY 15 MIN PRN, Starting on Wed12/25/22 at 0618, Until Wed12/25/22 at 1659, If administration of NS boluses will result in positive fluid balance at end of treatment, contact MD., Dialysis (Intra-Procedure) sodium zirconium cyclosilicate (Lokelma) oral powder packet 10 g 10 g, Oral, DAILY, First dose on Wed12/24/22 at 1800, Until Discontinued, Empty entire contents of packet into cup containing at least 3 tablespoons (45 mL) or more of water. Stir well and have patient drink immediately. If powder remains, add water, stir and drink. Repeat until no powder remains. Avoid giving other oral medications 2 hours before or after sodium zirconium cyclosilicate. , Routine Given 12/24/2022 6:41 PM EDT 10 g tacrolimus (Prograf) capsule 1 mg 1 mg, Oral, 2 TIMES DAILY, First dose on Wed12/24/22 at 2100, Until Discontinued, DO NOT SPLIT, CRUSH OR OPEN, Routine Given 12/25/2022 12:30 PM EDT 1 mg Given 12/24/2022 9:53 PM EDT 1 mg vitamin B Complex-vitamin C-folic Acid (Tania-julio) 0.8 mg per tablet 1 tablet 1 tablet, Oral, DAILY, First dose on Wed12/25/22 at 0900, Until Discontinued, Routine Given 12/25/2022 12:30 PM EDT 1 tablet documented in this encounter Active and Recently Administered Medications Times are shown in EDT. Scheduled Medication Order 12/23/2022 12/24/2022 12/25/2022 allopurinoL (Zyloprim) tablet 150 mg 150 mg, Oral, DAILY, First dose on Wed12/25/22 at 0900, Until Discontinued, Routine 1230 (Given - Provid er: Kori Abbott RN) aspirin EC tablet 81 mg 81 mg, Oral, DAILY, First dose on Wed12/25/22 at 0900, Until Discontinued, Routine 1230 (Given - Provid er: Kori Abbott RN) calcium gluconate 1g in sodium chloride 0.9% 50mL (COMPLETED) 1 g, Intravenous, ONCE, 1 dose, On Mariza 12/24/22 at 1642, Administer over 6 Minutes, Warning Vesicant/Irritant Medication Patient must be on panel monitor when receiving calcium; calcium can exacerbate digoxin toxicity. Since the effect of calcium is transient, patients with hyperkalemia also require treatments to shift potassium into cells and increase potassium excretion. Infusion over 6 minutes - Bedside monitor required. 1705 (New Bag - Provider: Beverly Leblanc RN)1711 (Stopped - Provider: Beverly Leblanc RN) dextrose 10% 250 mL IV bolus (COMPLETED)(Linked Group 1) at 1,000 mL/hr, Intravenous, ONCE, 1 dose, On Mariza 12/24/22 at 1655, Give 250 mL of dextrose 10% intravenously, immediately followed by regular insulin 5 units intravenously. 1723 (New Bag - Provider: Beverly Leblanc RN)1738 (Stopped - Provider: Beverly Leblanc RN) heparin (porcine) (1,000 units/mL) injection 2,000 Units (COMPLETED) 2,000 Units, Intravenous, ONCE IN DIALYSIS, 1 dose, On Wed12/25/22 at 0715, For use in Dialysis only., Dialysis (Intra-Procedure), Routine 0811 (Given - Provid er: Junito Han RN) heparin (porcine) (5,000 units/1 mL) subcutaneous injection 5,000 Units 5,000 Units, Subcutaneous, EVERY 8 HOURS SCHEDULED, First dose on Mariza 12/24/22 at 2200, Until Discontinued, Routine 2153 (Given - Provider: Sue Ventura RN) 0527 (Given - Provider: Sue Ventura RN)1341 (Given - Provider: Kori Abbott RN) insulin regular (HumuLIN R,NovoLIN R) (100 unit/mL) injection vial 5 Units (COMPLETED)(Linked Group 1) 5 Units, Intravenous, ONCE, 1 dose, On Wed12/24/22 at 1655, Give 250 mL of dextrose 10% intravenously, immediately followed by regular insulin 5 units intravenously., Routine 180 (Given - Provider: Beverly Leblanc RN) levETIRAcetam (Keppra) tablet 500 mg 500 mg, Oral, 2 TIMES DAILY, First dose on Wed12/24/22 at 2100, Until Discontinued, Routine 2152 (Given - Provider: Sue Ventura RN) 1232 (Given - Provider: Kori Abbott RN) levothyroxine (Synthroid) tablet 100 mcg 100 mcg, Oral, DAILY, First dose on Wed12/25/22 at 0600, Until Discontinued, Routine 05 (Given - Provid er: Sue Ventura RN) lidocaine (Xylocaine) 1% (10 mg/mL) injection 10 mg (COMPLETED) 10 mg, Subcutaneous, ONCE, 1 dose, On Wed12/24/22 at 1406, For use in Interventional Radiology (IR) only for procedure with direct provider supervision and verbal order., Angio/IR (Intra-Procedure), Routine 1406 (Given - Provider: Carroll Diaz MD) pantoprazole EC (Protonix) tablet 20 mg 20 mg, Oral, DAILY, First dose on Wed12/25/22 at 0900, Until Discontinued, DO NOT CRUSH OR OPEN 1230 (Given - Provid er: Kori Abbott RN) sevelamer carbonate (Renvela) tablet 800 mg 800 mg, Oral, 3 TIMES DAILY WITH MEALS, First dose on Wed12/24/22 at 2100, Until Discontinued, DO NOT CRUSH OR OPEN, Routine 2203 (Given - Provider: Sue Ventura RN) 0751 (Given - Provider: Kori Abbott RN)1230 (Given - Provider: Kori Abbott RN) sodium chloride 0.9 % (flush) (BD PosiFlush Normal Saline 0.9) flush 5 mL 5 mL, Intravenous, 2 TIMES DAILY, First dose on Wed12/24/22 at 2100, Until Discontinued, Routine 2152 (Given - Provider: Sue Ventura RN) 0900 (Given - Provider: Kori Abbott RN) sodium zirconium cyclosilicate (Lokelma) oral powder packet 10 g (CANCELED) 10 g, Oral, DAILY, First dose on Wed12/24/22 at 1800, Until Discontinued, Empty entire contents of packet into cup containing at least 3 tablespoons (45 mL) or more of water. Stir well and have patient drink immediately. If powder remains, add water, stir and drink. Repeat until no powder remains. Avoid giving other oral medications 2 hours before or after sodium zirconium cyclosilicate. , Routine 1840 (Given - Provider: Beverly Leblanc RN) tacrolimus (Prograf) capsule 1 mg 1 mg, Oral, 2 TIMES DAILY, First dose on Wed12/24/22 at 2100, Until Discontinued, DO NOT SPLIT, CRUSH OR OPEN, Routine 2152 (Given - Provider: Sue Ventura RN) 1230 (Given - Provider: Kori Abbott RN) vitamin B Complex-vitamin C-folic Acid (Tania-julio) 0.8 mg per tablet 1 tablet 1 tablet, Oral, DAILY, First dose on Wed12/25/22 at 0900, Until Discontinued, Routine 123 (Given - Provid er: Kori Abbott RN) PRN Medication Order 12/23/2022 12/24/2022 12/25/2022 acetaminophen (Tylenol) tablet 650 mg 650 mg, Oral, EVERY 6 HOURS PRN, Starting on Wed12/24/22 at 1852, Until Wed12/25/22 at 1659, Pain, Fever, Administer for pain or temperature greater than or equal to 38.2 degrees Celsius. Maximum daily dose of acetaminophen from all sources not to exceed 4,000 mg. When ordered for pain, acetaminophen should be given even when other ordered pain medications are indicated., Routine fentaNYL (pf) (50 mcg/mL) multi-dose injection 25-50 mcg (CANCELED) 25-50 mcg, Intravenous, EVERY 3 MIN PRN, Starting on Wed12/24/22 at 1404, Until Wed12/24/22 at 1852, Pain, per unit protocol, For use in Interventional Radiology (IR) only for procedural sedation with direct provider supervision and verbal order. - Start dose: 50 mcg (reduce dose to 25 mcg if history of sedation sensitivity). - Titration dose: 25-50 mcg IV, (based on patient response) every 3 minutes PRN to maintain procedural pain less than 2 per Pain Scale. Maximum dose: 50 mcg/dose, 250 mcg/hour, Angio/IR (Intra-Procedure), Routine 1503 (Given - Provider: Carroll Diaz MD) heparin (porcine) (1,000 units/mL) injection 1,000-10,000 Units (COMPLETED) 1,000-10,000 Units, Intercatheter, ONCE IN DIALYSIS PRN, 1 dose, Starting on Wed12/25/22 at 0618, Until Wed12/25/22 at 1143, Line Care, Per Protocol, Catheter lock use catheter specified fill volume per dialysis protocol. For use in Dialysis only. Procedure ID: [id number] (Hemodialysis CVAD Procedure - Care and Maintenance) in Clinical Policies., Dialysis (Intra-Procedure), Routine 1143 (Given - Provid er: Junito Han RN) lidocaine (Xylocaine) 1% (10 mg/mL) injection 3 mg 3 mg (0.3 mL), Subcutaneous, ONCE PRN, 1 dose, Starting on Mariza 12/24/22 at 1852, Until Wed12/25/22 at 1659, for discomfort with PIV insertion, Routine senna-docusate (Pericolace) 8.6-50 mg per tablet 2 tablet 2 tablet, Oral, 2 TIMES DAILY PRN, Starting on Wed12/24/22 at 1852, Until Wed12/25/22 at 1659, Constipation, Routine 1230 (Given - Provid er: Kori Abbott RN) sodium chloride 0.9 % (flush) (BD PosiFlush Normal Saline 0.9) flush 5-20 mL 5-20 mL, Intravenous, EVERY 1 MIN PRN, Starting on Mariza 12/24/22 at 1852, Until Wed12/25/22 at 1659, flush, Flush pertains to all indwelling lines. Flush per protocol found in the job aid using the link provided on this medication record., Routine sodium chloride 0.9% infusion 100 mL, Intravenous, EVERY 15 MIN PRN, Starting on Wed12/25/22 at 0618, Until Wed12/25/22 at 1659, If administration of NS boluses will result in positive fluid balance at end of treatment, contact , Dialysis (Intra-Procedure) Linked Groups Order Group 1: dextrose 10% 250 mL IV bolus (COMPLETED)Jump to med at 1,000 mL/hr, Intravenous, ONCE, 1 dose, On Wed12/24/22 at 1655, Give 250 mL of dextrose 10% intravenously, immediately followed by regular insulin 5 units intravenously. And insulin regular (HumuLIN R,NovoLIN R) (100 unit/mL) injection vial 5 Units (COMPLETED)Jump to med 5 Units, Intravenous, ONCE, 1 dose, On Wed12/24/22 at 1655, Give 250 mL of dextrose 10% intravenously, immediately followed by regular insulin 5 units intravenously., Routine And POCT Fingerstick Glucose (CANCELED) STAT, EVERY HOUR, First occurrence on Wed12/24/22 at 1700, Last occurrence on Wed12/24/22 at 1700, For 1 occurrence, Check blood glucose one hour after insulin administration. And POCT Fingerstick Glucose (CANCELED) Routine, EVERY 2 HOURS, First occurrence on Wed12/24/22 at 1800, Last occurrence on Wed12/24/22 at 2000, For 2 occurrences, Check blood glucose two hours after the last STAT blood glucose check documented in this encounter Care Teams Heat And Vent Aircraft Mechanic Relationship Specialty Start Date End Date Ileana Azevedo APRN [address] [place] [address] PCP - General Family Medicine 10/21/22 documented as of this encounter
--- OUTSIDE RECORDS SUMMARY | 2024-04-22 10:51 | XMS_ITS ---
Author Name Crystal Mcdermott Address [address] [place] [address] Phone [phone] Organization [facility] e, NA DOCUMENT DISCLAIMER Multiple document versions may exist, please be sure you review the latest version. The information in the [facility] Progress Note Document represents a providers documented clinical note containing certain health and medical information. It may not contain the complete medical history for the patient and should be independently verified. The represented time in the document is Eastern Time PROVIDER ROUNDING NOTE COMP HD PROVIDER?ROUNDING?NOTE?COMP?HD Clinic:?[address] [place] [address] Visit?date:?05/28/2022?00:00?Modality/setting:?IHD CHRISTY?ARNOL?-?Chart?#:?[id number] Method?of?Interaction:?Face?to?face Date?of?Interaction:?04/05/2024 ?-?Patient?is?stable ?-?Medications?and?labs?reviewed. Patient?issues?include: 09/20/2023?-?Recently?had?a?seizure. Prior?Treatment:?04/03/2024? Dialyzer:?180NRe?Optiflux? Dialysate:?2.0?K,?2.5 Ca,?1.0?Mg,?100?Dextrose?(G2251)? Prescribed?Time:?3:45?Avg?BFR:?460?Wt?Gain (kg):?2.10? Actual?Time:?03:46?Avg?DFR:?800?&#16 0;EDW?(kg):?71.00? Volume?Management?Comments: 06/02/2023?-?Euvolemic.??At/below?target?weight.??Decreased EDW?to?70.??? 07/28/2023?-?Euvolemic.??EDW?recently?decreased?based?on&#16 0;post-rx?weights.??No change.?09/01/2023?-?Euvolemic.??Achieving?target weight.??No?change.??? 09/20/2023?-?High?gains?last?2?treatments;?not?usually?the?case.??Euvolemic.? Achieving?target?weight.?10/29/2023?-?Continues?to?have?high?gains.??Not achieving?target?weight.??EDW?changed?to?70;?will?try&# 160;to?gently?challenge.??? 12/03/2023?-?Euvolemic.??Achieving?target?weight.??No?change.?12/31/2023?- Fluid?gains?have?increased?somewhat.??Achieving?target?weight.??No?change.??? 02/02/2024?-?Euvolemic.??Achieving?target?weight.??No?change.?02/28/2024?- Euvolemic.??Achieving?target?weight.??No?change.??&#160 ;?04/05/2024?-?Euvolemic.? Achieving?target?weight.??No?change. Adequacy ?spKt/V?eKdrt/V?&#160 ; ???OLC?(Del)?spKtv?URR?%?1.63?03/13/24?? ?1.41?03/13/24?? ?1.61?0 04/03/24?? ?74?03/13/24? ?1.52?02/14/24?? ?1.31?02/14/24?? ?1.53?0 03/31/24?? ?71?02/14/24? ?1.49?01/14/24?? ?1.31?01/14/24?? ?1.52?0 03/29/24?? ?73?01/14/24? ?Potassium,?Serum?mEq/L?Bicarbonate?mEq/L??&# 160;?Creatinine?mg/dL?5.6?04/03/24? 24?03/13/24?11 .60?03/13/24?5.6?03/27/24? 22?02/14/24?10 .61?02/14/24?5.4?03/20/24? 27?01/14/24?8. 82?01/14/24?-?Adequacy?parameters?reviewed Adequacy ?-?Adequacy?target?met ?Sitting?BP?Pre?Sitting BP?Post?Systolic/Diastolic?Systolic/Diastolic?146?/?72??04/03/24?133?/?75??04/03/24?112?/?57??03/31/24?117?/?73??03/31/24?134?/?58??03/29/24?113?/?75??03/29/24?? Blood?Pressure ?-?Blood?pressure?controlled Fluid?Status ?-?Fluid?status?acceptable Prescription?Compliance ?-?Potassium?controlled 07/28/2023?-?On?Lokelma.?10/29/2023?-?BP?not&#1 60;always?well?controlled.??Will try?to?gently?challenge?weight,?revisit?fluid?restriction,?and?see?if?that?will bring?the?BP?into?range.?12/03/2023?-?K+?slightly?high.??On?2K?bath?and Lokelma.??Will?continue?to?monitor.?04/05/2024?-?K+?slightly?high.??On?2K bath?and?Lokelma.??Will?continue?to?monitor. Anemia ?HGB?g/dL? Transferrin?Sat.?(Calc)?%?Ferritin?ng/mL&#160 ;?12.2?04/03/24?35?03/13/24?702 ?03/13/24?? ?12.4?03/27/24?35?02/14/24?681 ?02/14/24?? ?12.6?03/20/24?37?01/14/24?652 ?01/14/24?? CRISTY?Administrations ??0?mcg?Mircera?07/25/22 ??0?mcg?Mircera?07/11/22 ??0?mcg?Mircera?06/27/22 IV?Iron?Administrations ??0?mg?Venofer?12/03/23 ??0?mg?Venofer?11/26/23 ??100?mg?Venofer?07/02/23 ?-?Anemia?reviewed ?-?Anemia?targets?met Bone?and?Mineral?Metabolism ??Calcium,?Total?mg/dL?? Calcium,?Corrected?mg/dL ?&#1 60;??Phosphorous?mg/dL??? PTH-Intact,?Plasma?pg/mL ??9.2?03/20/24? 9.7?03/13/24?4.0&#16 0;?03/13/24?153?03/13/24?9.7?03/13/24? 8.6?02/14/24?5.3&#16 0;?02/21/24?400?02/14/24?9.3?03/06/24? 8.9?01/14/24?4.1&#16 0;?02/14/24?217?01/10/24?Vitamin?D?25?Hydroxy?ng/mL? ?Vitamin?D?Analogue? Administrations?Calcimimetics?59.5?03/13/24?0.75?mcg?Vitamin?D??04/03/24??& #160;?-?51.5?12/13/23?0.75?mcg?Vitamin?D??03/31/24??& #160;?-?46.0?09/15/23?0.75?mcg?Vitamin?D??03/29/24??& #160;?-? PTH ?-?PTH?within?target ?-?Bone?and?mineral?metabolism?parameters?reviewed ?-?Calcium?controlled ?-?Phosphorus?controlled 07/28/2023?-?PTH?still?above?target.??Will?increase?calcitriol?to?0.5mcg?qrx.??? 09/01/2023?-?PTH?stable?but?still?above?target.??Will&# 160;increase?calcitriol?to 0.75mcg?qrx,?keeping?a?close?eye?on?calcium.???&#1 60;12/03/2023?-?PTH?within?target, but?significantly?increased?since?last?month.??Will?change&# 160;calcitriol?to?1mcg? on?Mondays?and?continue?0.75mcg?on?Wed.?and?Wed.?12/31/2023?-?Sevelamer previously?held?for?low?phos.??Will?resume?800mg?with&# 160;meals.??Once?phos?is?in range,?will?likely?increase?calcitriol.?04/05/2024?-?Calcitriol?increased?to 0.75mcg?qrx. Nutrition ?Albumin?g/dL? eNPCR?g/kg/day?4.0?03/13/24?? ?0.92?03/13/24?? ?4.1?02/14/24?? ?0.83?02/14/24?? ?4.0?01/14/24?? ?0.90?01/14/24?? ?-?Nutrition?reviewed Home?Medications ?acetaminophen?(acetaminophen) 500?mg,?oral,?2?tablet?three?times?a?day ??allopurinol?(allopurinol) 100?mg,?oral,?1?tablet?once?a?day ??Mt?Low?Dose?Aspirin?(aspirin) 81?mg,?oral,?1?tablet?once?a?day ??benzonatate?(benzonatate) 100?mg,?oral,?1??as?directed ??levetiracetam?(levetiracetam) 250?mg,?oral,?1?tablet?three?times?a?week [POST?Dialysis] ??levetiracetam?(levetiracetam) 500?mg,?oral,?1?tablet?twice?a?day ??levothyroxine?(levothyroxine) 100?mcg,?oral,?1?tablet?once?a?day ??Mucinex?(guaifenesin) 600?mg,?oral,?1?tablet?every?twelve?hours ??pantoprazole?(pantoprazole) 20?mg,?oral,?1?tablet?once?a?day ??Tania-Madiha?(b?complex-vitamin?c-folic?acid) 0.8?mg,?oral,?1?tablet?once?a?day ??sevelamer?carbonate?(sevelamer?carbonate) 800?mg,?oral,?1?tablet?three?times?a?day ??tacrolimus?(tacrolimus) 1?mg,?oral,?1?capsule?twice?a?day ??Veltassa?(patiromer?calcium?sorbitex) 25.2?gram,?oral,?1?packet?once?a?day [take?4?times?a?wk?on?non?dialysis?days,?as?needed?to?reach?desired?K+target.] Vascular?Access?-?Active/Maturing ?Type?Position/Location?Status?Access?ID?CVCatheter-Tunneled?Chest?Active?(In?Use)?[id number]?-?-?&# 160;?-? -?-?-?&# 160;?-? -? Access?Flows ??1391mL?per?min?10/22/21 ??1256mL?per?min?08/29/21 ??1559mL?per?min?08/27/21 ?-?Vascular?access?reviewed ?-?Current?access?is?functioning?well. 05/28/2022?-?PERMANENT?TDC.?? Exam ?-?Vital?signs?reviewed Pulmonary ?-?LUNGS?-?clear Cardiovascular ?-?CV?-?Blood?pressure?noted ?-?CV?-?RRR Edema ?-?EXT?-?No?edema Transplant?Status Topic Exploring?Alternative?Treatment?Options: Kidney?Transplant ?Person?Taught: ?-?Patient ?Additional?Education?Required:?No ?Date?Given:?07/02/2022 Interest?and?Eligibility?(If?changes?are?made,?Please?notify?SW?via?alert?below) ?Date?of?discussion?from?transplant?assessment:?09/08/2023 ?Patient?already?on?transplant?list??No Tobacco?Cessation ??Tobacco?use:?Never?used Crystal?Baldemar,? END OF DOCUMENT
--- OUTSIDE RECORDS SUMMARY | 2024-04-22 10:51 | XMS_ITS | Encounter Summary ---
[place] [address] Care Team Providers Care Net Lead Architect Name Role Phone Roberto CarlosIleana meléndez CATRACIHTO Primary Care Provider [phone] Reason for Visit * Reason Comments Medication Refill Encounter Details Date Type Department Care Team (Late st Contact Info) Description 11/09/2023 Refill Neph[place] [address] Luna Solorio MANAGER [employer] SERVICES [facility] [place] [address] Social History Tobacco Use Types Packs/Day Years Used Date Smoking Tobacco: Former Cigarettes 0.3 1.5 1 08/05/1998 - 12/03/2000 Smokeless Tobacco: Former Quit: 04/14/2001 Alcohol Use Standard Drinks/Week Comments No 0 (1 standard drink = 0.6 oz pur e alcohol) [facility] Inpatient Questions Answer Date Recorded Does Anyone [...] on filedocumented in this encounter Care Teams Net Lead Architect Relationship Specialty Start Date End Date Ileana Azevedo APRN [address] [place] [address] PCP - General Family Medicine 10/21/22 documented as of this encounter
--- OUTSIDE RECORDS SUMMARY | 2024-04-22 10:51 | XMS_ITS | Encounter Summary ---
Author Organization [facility] [place] [address] Care Team Providers Care Sprinkler Fitter Name Role Phone Ileana Azevedo APRN Primary Care Provider [phone] Encounter Details Date Type Department Care Team (Late st Contact Info) Description 02/02/2024 Orders Only [place] [address] Lalitha Mcfarlane, [facility] Social History Tobacco Use Types Packs/Day Years [...] on filedocumented in this encounter Care Teams Sprinkler Fitter Relationship Specialty Start Date End Date Ileana Azevedo APRN [address] [place] [address] PCP - General Family Medicine 10/21/22 documented as of this encounter
--- OUTSIDE RECORDS SUMMARY | 2024-04-22 10:51 | XMS_ITS | Encounter Summary ---
Author Organization [place] [address] Care Team Providers Care Stoker Erector And Servicer Name Role Phone Carroll Fuentes DO Primary Care Provider Encounter Details Date Type Department Care Team (Latest Contact Info) Description 10/14/2022 Travel Social History Tobacco Use Types Packs/Day Years Used Date Smoking Tobacco: Former Cigarettes 0.3 1.5 1 08/05/1998 - 12/03/2000 Smokeless Tobacco: Former Quit: 04/14/2001 Alcohol Use Standard Drinks/Week Comments No 0 (1 standard drink = 0.6 oz pur e alcohol) Sex and Gender Information Value Date Recorded Sex Assigned at Not on file Gender Identity Not on file Sexual Orientation Not on file documented as of this encounter Plan of Treatment Not on file documented as of this encounter Visit Diagnoses Not on filedocumented in this encounter Care Teams Stoker Erector And Servicer Relationship Specialty Start Date End Date Carroll Fuentes DO [address] [place] [address] PCP - General 09/23/11 10/20/22 documented as of this encounter
--- OUTSIDE RECORDS SUMMARY | 2024-04-22 10:51 | XMS_ITS | Encounter Summary ---
Author Organization [facility] [place] [address] Care Team Providers Care Child Care Attendant Name Role Phone Ileana Azevedo APRN Primary Care Provider [phone] Reason for Visit * Reason Comments Medication Refill Encounter Details Date Type Department Care Team (Late st Contact Info) Description 12/07/2023 Refill [place] [address] Crystal Mcdermott MD [facility] [place] [address] ESRD (end stage renal disease) on dialysis Social History Tobacco Use Types Packs/Day Years Used Date Smoking Tobacco: Former Cigarettes 0.3 1.5 1 08/05/1998 - 12/03/2000 Smokeless Tobacco: Former Quit: 04/14/2001 Alcohol Use Standard Drinks/Week Comments No 0 (1 standard drink = 0.6 oz pur e alcohol) [facility] Inpatient Questions Answer Date Recorded Does Anyone [...] documented as of this encounter Visit Diagnoses Diagnosis ESRD (end stage renal disease) on dialysis End stage renal disease documented in this encounter Care Teams Child Care Attendant Relationship Specialty Start Date End Date Ileana Azevedo APRN [address] [place] [address] PCP - General Family Medicine 10/21/22 documented as of this encounter
--- OUTSIDE RECORDS SUMMARY | 2024-04-22 10:51 | XMS_ITS | Encounter Summary ---
Author Organization [facility] Address [facility] [place] [address] Care Team Providers Care Set Staff Fitter Name Role Phone Ileana Azevedo CATRACHITO Primary Care Provider [phone] Reason for Visit * Auth/Cert (Routine) Specialty Diagnoses / Procedures Referred By Shashi ko Referred To Contact Diagnoses Hyperkalemia HYPERKALEMIA-WEAKNESS & [place] [address] [facility] Referral ID Status Reason Start Date Expiration Date Visits Re quested Visits Authorized [id number] 1 1 Encounter Details Date Type Department Care Team (Latest Contact Info) Description 10/19/2022 5:24 PM EDT - 10/21/2022 3:25 PM EDT Hospital Encounter Medical Specialites Unit Level 1 [place] [address] Jasmyne Dawkins MD [place], [place] [id number] [place] [address] ESRD (end stage renal disease) on dialysis (Primary Dx); Hyperkalemia Discharge Disposition: [facility]sp Facility Social History Tobacco Use Types Packs/Day Years [...] Sign Reading Time Taken Comments Blood Pressure 132/86 10/21/2022 12:07 PM EDT Pulse 70 10/21/2022 7:30 AM EDT Temperature 36.7 ??C (98.1 ??F) 10/21/2022 1 1:39 AM EDT Respiratory Rate 15 10/21/2022 12:0 7 PM EDT Oxygen Saturation 100% 10/21/2022 12: 07 PM EDT Inhaled Oxygen Concentration - - Weight 69.8 kg (153 lb 12.8 oz) 10/20/2022 1:11 PM EDT Height 182.5 cm (5' 11.85) 10/20/2022 1:11 PM E DT Body Mass Index 20.95 10/20/2022 1:11 PM EDT documented in this encounter Discharge Summaries * Joann Thurman MD - 10/21/2022 2:01 PM EDT Images from the original note were not included. Hospital Discharge Summary Patient Name: Adama Ram Patient Age: 62 y.o. Birthdate: 1960 Admit date: 10/19/2022 Discharge date and time: 10/21/2022 Attending Physician: Jeana Beach MD Code Status: Modified Code Status, DNR, no pre-arrest limitations ID: Adama Ram is a 62 y.o. 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 Follow-up Recommendations for Providers: - Adama had borderline hypotension upon initial arrival to , and was found to be hypotensive at OSH before transfer. After dialysis, his blood pressures remained stable mostly in the 110's-130's systolic. Home Losartan and Coreg was recently discontinued for hypotension he had been having at his assisted living facility, [facility]. Please continue to follow his blood pressure at scheduled PCP follow-up appointment and can consider a cardiology referral. - Adama required inpatient dialysis during admission. His labs were trended and remained stable while here, potassium 4.8 on day of discharge. Please follow this as he continues his regular scheduled dialysis treatments Wednesday, , Wednesday at [facility]. - Anayeli, head nurse at [facility], notes an observed decline recently where he has had more frequentfalls and seems more unsteady lately. Hx of brain injury in remote past (1979). Consider close monitoring of his cognitive status as an outpatient, as he may need further work-up in the future. - Consider further outpatient management of anemia and bone mineral health. Discharge Diagnoses (Hospital Problems) and Secondary Diagnoses (Chronic Problems): Active Hospital Problems Diagnosis ??? Hyperkalemia Resolved Hospital Problems No resolved problems to display. Active Non-Hospital Problems Diagnosis ??? ESRD (end stage renal disease) on dialysis ??? Failed kidney transplant ??? CKD (chronic kidney disease) stage 5, GFR less than 15 ml/min ??? Hypertension secondary to other renal disorders ??? Renal osteodystrophy ??? RTA (renal tubular acidosis) ??? SDH (subdural hematoma) ??? Anemia of chronic renal failure ??? Subarachnoid hemorrhage ??? Primary papillary carcinoma of left kidney ??? Gastrointestinal hemorrhage ??? Bradycardia ??? Left renal mass ??? Weight loss ??? 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 residential current use of immunosuppressive drug ??? H/O kidney transplant ??? Squamous cell carcinoma of skin of other parts of face ??? Atopic rhinitis ??? Injury of head ??? Non-neoplastic nevus ??? Varicose veins of lower extremities ??? Rosacea ??? Acne rosacea ??? Colon polyp ??? BCC (basal cell carcinoma of skin) ??? 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 Gout ??? Hypertension ??? Epilepsy Procedures: Inpatient Dialysis 10/20 History of Presentation (per 10/19/2022 Admission H&P): Adama Ram is a 62 yo male presenting as a transfer from [facility]. Presented there for hypotension to the 80s/50s, was found to have a potassium of 6.1, and was subsequently transferred here due to concern that he may need urgent dialysis and/or higher level of care. ?? On my interview, Adama is a bit confused and has poor memory, which seems to be his mental baseline for the last several months. I called his brother and DPOA Lucas who reports a relatively rapid functional and mental decline since February 2022. Lucas reports that in February 2022, Adama was able to [place] to visit their mother, and that he's noticed a substantial decline in his memory since July of this year. Lucas admits that his assessment is limited as he resides in [place] and only speaks with Adama over the phone. Adama has lived at the [facility] since 2019, but on my interview told me he's not sure where helives. He did not remember when he last had dialysis, but Lucas tells me his last session was on Wednesday (Adama has been on a //Wed schedule since last fall according to Lucas). ?? Labs at OSH notable for WBC 8; HgB 11.4; Plt 186 Cr 9.6, BUN 44 K 6.1, trop 80 (nml <60). EKG w/ no changes. Treated with kayexalate for hyperK prior to transfer. ?? On my interview, Adama is alert and cooperative. He is aware that his memory is not intact. He denies headache, vision changes, chest pain, shortness of breath, abdominal pain, bowel changes, urinary symptoms, and new neurologic symptoms. ?? Labs on admission revealed potassium improved to 4.9. He's been hemodynamically stable with HR in the 60s and BP 100s/60s. Hospital Course: Adama Ram was admitted to the Hospital Service on 10/19/2022. The following acute and chronic medical issues were identified during this phase of their hospitalization, and managed as summarized below by problem: #Hyperkalemia, resolved #ESRD on dialysis #s/p kidney transplant Upon arrival to from OSH, potassium had normalized to 4.9. He had received 1 dose of Kayexalate prior to transferring. Nephro was consulted for dialysis, and had inpatient dialysis completed on 10/20 which he tolerated well. Nephrology did note that he had some hypotension during dialysis and that this has been an ongoing issue during the last few months. Labs followed and remained within normal limits. Potassium was 4.8 on day of discharge. Will continue with prior dialysis schedule upon discharge. #Hx TBI #Seizure Disorder #Concern for Potential Change in Baseline Mental Status Continued home keppra for seizure disorder. He fell out of his wheelchair at his assisted living facility, which is what brought him to the OSH where he worked up for hypotension and hyperkalemia. Brother, Lucas, is DPOA and lives in [place]. Spoke with [place] on 10[place]20 [place] of his true day to day functional and cognitive status, although does state that he believes he has had more of a cognitive decline in the recent months. Had a long discussion with Anayeli, the head nurse at [facility], who states he has been falling more often during the last several months, but otherwise his cognitive status is for the most part normal. He's had episodes of acute confusion when he becomes hypotensive, for which his blood pressure medications Losartan and Coreg have been recently discontinued. Otherwise, she hasn't noticed much change and says he is A&Ox3 when she cares for him, with the exception of the times when he is hypotensive. He was evaluated by PT, ambulated safely during therapy and was deemed safe to return to his assistedliving facility when medically ready. ?? Chronic Problems?? #Gout #Hypothyroidism #GERD Continued home allopurinol 150 mg qHS, aspirin 81 mg qd, Levothyroxine 100 mcg qd, Pantoprazole 20 mg qd. No active concerns during admission. #Hx hypertension #Hypotension Pt was reported to be hypotensive intermittently during dialysis, but improved and remained stable afterward. Losartan and Coreg were in his list of medications, however we held them in this setting.Later learned after talking with Anayeli at [facility] that he is not taking these meds - they've been discontinued d/t hypotension. Did not res-start these. Physical Exam: Vital Signs: Last value Range last 24 hrs Temperature Temp: 36.7 ??C (98.1 ??F) Temp: [36.4 ??C (97.5 ??F)-36.7 ??C (98.1 ??F)] Heart Rate Heart Rate: 70 Heart Rate: [70] Blood Pressure BP: 132/86 BP: (113-134)/(59-90) Respiratory Rate Resp: 15 Resp: [15-19] SpO2 SpO2: 100 % SpO2: [93 %-100 %] General: Pt is alert, well appearing, and in no acute distress. Eyes: Pupils equal and reactive to light and accomodation. Chest: Lungs clear to auscultation bilaterally; no wheezing. Heart: Regular rate and rhythm. Abdomen: Bowel sounds present in all 4 quadrants. Soft, nontender. Neurological: Cranial nerves II-XII grossly intact. Mental Status: Alert and oriented to person, place, and situation. Somewhat confused about year (said 2023). Follows all commands. Psychiatric: Cooperative. Extremities: No edema. Skin: Warm, dry, no rash on limited exam. Important Studies and Lab Data: Recent Labs 10/21/22 0747 10/20/22 0910/19/221957 WBC 5.8 5.1 6.2 HGB 12.1* 10.5* 11.4* HCT 36.2* 32.2* 34.5* PLATELET 181 166 179 Recent Labs 10/21/22 0747 10/20/22 0910/19/221957 NA 134* 142 144 K 4.8 5.6* 4.9 CL 94* 98 98 CO2 26 31 29 BUN 29* 49* 46* CREATININE 6.68* 9.82* 9.50* MAGNESIUM 0.79 0.88 0.96 PHOS 4.1 3.5 -- Recent Labs 10/19/221957 BILITOT 0.5 AST 16 ALT 10 ALKPHOS 122 No results for input(s): INR, PTT in the last 168 hours. Pertinent radiology/diagnostic studies: No results found for this visit on 10/19/22. Discharge Conditions/Prognosis: Upon discharge the pt is hemodynamically stable, fully ambulatory without requiring supplemental oxygen, afebrile and pain free. Discharge to: home (assisted living facility [facility]) Discharge Medications: Your Medications New Medications Dose Details vitamin B Complex-vitamin C-folic Acid 0.8 mg Tab Commonly known as: Tania-juloi Take 1 tablet by mouth daily. Start taking on: October 22, 2022 1 tablet Quantity: 90 tablet Refills: 3 Continued medications with new dosing Dose Details allopurinoL 100 mg tablet Commonly known as: Zyloprim Take 1.5 tablets by mouth daily. What changed: how much to take 150 mg Quantity: 30 tablet Refills: 11 tacrolimus 1 mg IR capsule Commonly known as: Prograf Take 1 capsule by mouth 2 times daily. What changed: additional instructions 1 mg Quantity: 60 capsule Refills: 0 Continued medications, unchanged Dose Details acetaminophen 500 mg tablet Commonly known as: Tylenol Take 2 tablets by mouth every 6 hours. 1,000 mg Quantity: 30 tablet Refills: 1 aspirin EC 81 mg EC (DR) tablet Take 1 tablet by mouth daily. 81 mg Quantity: 30 tablet Refills: 3 guaiFENesin ER 600 mg ER 12 hr tablet Commonly known as: Mucinex Take 600 mg by mouth 2 times daily as needed for Congestion. 600 mg Refills: 0 levETIRAcetam 500 mg tablet Commonly known as: Keppra Take 1 tablet by mouth 2 times daily. 500 mg Quantity: 60 tablet Refills: 0 levothyroxine 100 mcg tablet Commonly known as: Synthroid Take 1 tablet by mouth daily. 100 mcg Quantity: 90 tablet Refills: 0 multivitamin Cap Take 1 capsule by mouth daily. 1 capsule Quantity: 30 capsule Refills: 0 pantoprazole EC [address] tablet Commonly known as: Protonix Take 1 tablet by mouth daily. 20 mg Refills: 0 sevelamer carbonate 800 mg tablet Commonly known as: Renvela Take 800 mg by mouth 3 times daily (with meals). 800 mg Refills: 0 STOPPED Medications carvediloL 12.5 mg tablet Commonly known as: Coreg losartan 100 mg tablet Commonly known as: Cozaar Instructions Given to Patient at Discharge: Patient Instructions Instructions on Discharge to Home Why you were hospitalized - You fell out of your wheelchair at [facility] and you were taken to [facility] where you were found to have low blood pressure and high potassium. You were transferred to [facility] for further care, and received inpatient dialysis with close electrolyte monitoring. Nephrology did not need to plan any further dialysis as an inpatient, and therefore you are being discharged with the plan to return to your regular schedule of Wednesday, , Wednesday dialysis at [facility]. Call your doctor or seek medical attention if you develop the following - chest pain, shortness of breath, fever, cough, weakness in an arm or leg Activity level - as before hospitalization Diet - no changes, try to maintain a kidney healthy diet Driving - as before hospitalization Shower/Bath - permitted Wound Care - none Home Oxygen therapy - none Changes in Your Medications: New Medications: - Vitamin B, Vitamin C, Folic Acid (aka Tania-julio): take 1 tablet daily Medication dose changes: - Tacrolimus dosing was DECREASED. It is now changed to 1mg twice daily STOP these medications: - Losartan and Coreg Follow-up: -You are scheduled on November 05 with your primary care doctor. This has been scheduled as a home visit. Your Inpatient Doctor: Jeana Beach MD Your Primary Care Provider: Ileana Azevedo APRN [phone] For questions regarding this document or issues relating to this hospitalization on the Medical Service, please contact your inpatient physician through the [facility] Interior Design Coordinator . Issues afterhours and on weekends will be handled by the Hospitalist staff on-call. General Instructions None Provider Contact Information: Ileana Azevedo APRN [address] / [facility] [address] Discharge References/Attachments: Discharge References/Attachments Renal Disease: End-Stage Diet (Honduran) documented in this encounter Discharge Instructions * Patient Instructions* Joann Thurman MD - 10/21/2022 2:10 PM EDT Instructions on Discharge to Home Why you were hospitalized - You fell out of your wheelchair at [facility] and you were taken to [facility] where you were found to have low blood pressure and high potassium. You were transferred to [facility] for further care, and received inpatient dialysis with close electrolyte monitoring. Nephrology did not need to plan any further dialysis as an inpatient, and therefore you are being discharged with the plan to return to your regular schedule of Wednesday, , Wednesday dialysis at [facility]. Call your doctor or seek medical attention if you develop the following - chest pain, shortness of breath, fever, cough, weakness in an arm or leg Activity level - as before hospitalization Diet - no changes, try to maintain a kidney healthy diet Driving - as before hospitalization Shower/Bath - permitted Wound Care - none Home Oxygen therapy - none Changes in Your Medications: New Medications: - Vitamin B, Vitamin C, Folic Acid (aka Tania-julio): take 1 tablet daily Medication dose changes: - Tacrolimus dosing was DECREASED. It is now changed to 1mg twice daily STOP these medications: - Losartan and Coreg Follow-up: -You are scheduled on November 05 with your primary care doctor. This has been scheduled as a home visit. Your Inpatient Doctor: Jeana Beach MD Your Primary Care Provider: Ileana Azevedo, AUDIO OPERATOR [phone] For questions regarding this document or issues relating to this hospitalization on the Medical Service, please contact your inpatient physician through the [facility] Interior Design Coordinator . Issues afterhours and on weekends will be handled by the Hospitalist staff on-call. * Attachments The following attachments cannot be sent through Care Everywhere. * Renal Disease: End-Stage Diet (Honduran) documented in this encounter Medications at Time of Discharge Medication Sig Dispensed Refills Start Date End Date pantoprazole EC (Protonix) [address] tablet [...] 2 times daily. 60 capsule 10/21/2022 12/07/2023 allopurinoL (Zyloprim) 100 mg tablet Take 1.5 tablets by mouth daily. 30 tablet 11 10/21/2022 12/25/2022 guaiFENesin ER (Mucinex) 600 mg Tablet Extended Release 12hr Take 600 mg by mouth 2 times daily as needed for Congestion. 12/24/2022 sevelamer carbonate (Renvela) 800 mg Tablet Take 800 mg by mouth 3 times daily (with meals). 01/11/2024 multivitamin Capsule Take 1 capsule by mouth daily. 30 capsule 2018 12/25/2022 documented as of this encounter Progress Notes * Burak Mendez - 10/21/2022 3:25 PM EDT Office of Care Management/Channel Layer Patient Name: Adama Ram : 1960 Patient has been offered an CADEN bed at [facility]. RCT arranged for a 1530hrs transport. Ambulance will need: Medicare ambulance form completed and signed (MD or Jewelry Sales Associate RN/SAFE AND VAULT INSTALLER) Copy of patient demographics [place] Out of Hospital DNR/DNI order, if active No MD to MD report necessary. Please call Nursing Report to , ask for stretching press operator. Info to accompany patient: Copies of Medication Administration Records and IV sheets for past 10 days. Plan: Channel Layer will be available to the patient and Jewelry Sales Associate-RN and/or Social Workerfor further assistance. Patient will be discharged to: [facility] [address] [address] Burak Mendez Channel Layer * Burak Mendez - 10/21/2022 3:25 PM EDT Office of Care Management/Channel Layer Name: Adama Ram Presenting Issue: Outpatient Dialysis Update Notified [facility] HD unit that patient is scheduled for discharge soon. The dialysis unit is ready for the patient on 10/23/22. The patient will have a schedule of MWF at their regular on-time. Plan: Discharge Summary and last acute dialysis records will be faxed to the stretching press operator upon discharge. This office will be available to the patient, Jewelry Sales Associate-RN and Youth Care Worker for further assistance. Dialysis Unit Address: [address] [address] Burak Mendez Channel Layer * Latonia Oshea RN - 10/21/2022 3:23 PM EDT VSS on RA, afebrile. Denies chest pain, SOB, nausea. A&Ox3, disoriented to situation intermittently. Denies pain. Showered. Discharging back to facility. AVS reviewed with and sent with patient. Belongings returned. Left via wheelchair to east entrance for ride. * Didier Louis MD - 10/21/2022 12:25 PM EDT Images from the original note were not included. [facility] NEPHROLOGY/HYPERTENSION DIALYSIS PROGRESS NOTE PATIENT: Adama Ram : 1960 Ileana Azevedo APRN REASON FOR CONSULTATION: ESRD Management INTERVAL HISTORY: Patient doing well. He states he has no issues. No issues overnight. ROS: 4 point review of sytem was done, everything was negative except for what was mentioned above. INTAKE/OUTPUTS: Intake/Output Summary (Last 24 hours) at 10/22/2022 0439 Last data filed at 10/21/2022 1100 Gross per 24 hour Intake 360 ml Output 0 ml Net 360 ml MEDICATIONS: Vasoactive/Sedating Meds: VITALS: Last value Range last 24 hrs Temperature Temp: 36.7 ??C (98.1 ??F) Temp: [36.6 ??C (97.9 ??F)-36.7 ??C (98.1 ??F)] Heart Rate Heart Rate: 70 Heart Rate: [70] Blood Pressure BP: 132/86 BP: (113-132)/(60-86) Respiratory Rate Resp: 15 Resp: [15-19] SpO2 SpO2: 100 % SpO2: [93 %-100 %] Ventilator: Mode Rate TV PEEP FiO2 Pplateau PHYSICAL EXAM: Patient is awake alert not in acute distress No jaundice oral mucosa moist Neck- supple trachea central Chest- bilateral air entry present clear to auscultation no wheeze no crepitation. Tunneled line intact with some surrounding erythema; no tenderness to palpation or purulence.?? CVS-S1-S2 present, no murmur regurgitation gallops. Abdomen-nontender nondistended, bowel sounds present. Extremities-peripheral pulses present, no edema Neuro-patient is awake alert, moving all 4 limbs, motor examination is grossly normal. No asterixis. ?? STUDIES: LABS: CBC: Recent Labs 10/21/22 0747 10/20/22 0910/19/221957 WBC 5.8 5.1 6.2 HGB 12.1* 10.5* 11.4* PLATELET 181 166 179 Chemistry: Recent Labs 10/21/22 0747 10/20/22 0910/19/221957 NA 134* 142 144 K 4.8 5.6* 4.9 CL 94* 98 98 CO2 26 31 29 BUN 29* 49* 46* CREATININE 6.68* 9.82* 9.50* GLUCOSE 99 116 101 Recent Labs 10/21/22 0747 10/20/22 0905 10/19/221957 CALCIUM 8.7 8.5 9.1 MAGNESIUM 0.79 0.88 0.96 PHOS 4.1 3.5 -- ABG (Arterial Blood Gas) No results for input(s): PHART, WLW4CJA, PO2ART, SMV8SDD, LACTATEVEN, IWZ9VIV, PFRATIOART2 in the last 168 hours. VBG (Venous Blood Gas) No results for input(s): PHVEN, LYI0KWX, PO2VEN, TMN1RXO, LACTATEVEN in the last 168 hours. Mixed Venous Sat No results for input(s): Z7DSJW1 in the last 168 hours. LFT's: Recent Labs 10/19/221957 BILITOT 0.5 ALBUMIN 4.0 ALKPHOS 122 ALT 10 AST 16 Prot/Cre Ratio Date Value Ref Range Status 07/19/2018 16.3 ratio Final No results found for: TPROTEINPEP, ALBELECT No results found for: MICROALBUR, [id number] Lab Results Component Value Date HA1C 5.4 11/29/2018 HA1C 5.5 05/12/2017 HA1C 4.8 11/26/2016 Lab Results Component Value Date PTH 52 11/29/2018 CALCIUM 8.7 10/21/2022 PHOS 4.1 10/21/2022 25-OH Vit D Total (ng/mL) Date Value Status 11/29/2018 49 Final MICROBIOLOGY: N/A ?? IMAGING: N/A ?? ASSESSMENT/IMPRESSIONS + PLAN: 1) ESRD on HD - Impressions: Patient has had multiple recurrent falls with symptomatic hypotensive spells. Patient's spells as an outpatient have not been related to dialysis. Given these episodes, we have discussed with primary team of potentially obtaining a cardiology evaluation while inpatient or at least giving patient a referral upon discharge. Patient would benefit from a PT/OT evaluation as well. - Access: Tunneled HD catheter - Schedule: MW as an outpatient. Next dialysis: 10/22 - Prescription for Next Dialysis: Duration:4 hours; Na:140; Bicarb:35; Temp:35; Dialyzer: F180; BFR: up to 450ml/min; DFR:1.5X BFR; UF:1-3kg; BVM: Profile: B - Anticoagulation: Heparin 8000U + catheter heparin - Additional Recs: - Obtain daily weights - Preserve veins in non-dominant arm - May need to give fluids if hypotensive during dialysis. - Recommend a cardiology evaluation inpatient or at the minimum, a referral as an oupatient. - Recommend PT/OT eval. ?? 2) Hemodynamics - Impressions: BP stable - Pressures: Systolics between 100 - 110 - Recommendations / Therapies: - Monitor pressures for time being ?? 3) Anemia / Hemoglobin - Impressions: Goal??Hgb >10,??Ferritin >100ng/dl, TIBC >20%. Can likely defer anemia to outpatient management given expected short duration of stay - Recommendations / Therapy: - Monitor Hgb. - Tania-Julio daily ?? 4) Bone Mineral Health - Impressions: Can likely defer BMD studies to outpatient management given expected short duration of stay - Recommendations / Therapy: - Continue Renvela 800mg TID with meals - Tania-julio daily ?? 5) Electrolytes - Impressions: Stable - Recommendations / Therapy: - Management with dialysis ?? 6) Hx of renal graft - Impressions: OK to continue progra 1mg BID Thanks for letting us participate in the care of this patient. Didier Louis M.D., M.P.H., M.H.A. PGY-IV Nephrology-Hypertension Fellow Page # [phone] [address] 2nd floor, Gaming Investigator [address] [place] [address] Associated attestation - Crystal Mcdermott MD - 10/22/2022 8:50 AM EDT The patient was seen and examined with the nephrology fellow. Please see the nephrology fellow's note from today for details. I have reviewed the fellow's note and agree with the exam, and assessmentand plan. Crystal Mcdermott MD Nephrology Pager: [phone] * Susanna Robertson RN - 10/21/2022 11:08 AM EDT This RNCM called to confirm HD chair availability. Per family and patient -this patient has been established at [facility] agency for all dialysis needs. Icalled [facility] and patient has a chair confirmed for Wednesday// and Saturdays for on time of 11:05. The Patient/ representataive (brother-Lucas Ram (DPOA)- have accepted resumption of care to [facility]. Patient requests resumption of care referral to : [facility] [address] [place] [address] P: [phone] F: [phone] Expected date of discharge: 10/21/22. Referral routed to the [facility] for matching with agency/vendor and to provide any required information. Susanna Robertson RN, Pager-[phone] * Radha Otto - 10/21/2022 10:25 AM EDT Occupational Therapy Evaluation Patient profile: Adama Ram is a 62 y.o. 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 admitted on 10/19/[address] Jeana Beach MD after a fall, found to be hypotensive and hyperkalemic. Past Medical History: Diagnosis Date ??? BP (high blood pressure) ??? DVT (deep venous thrombosis) ??? Gout ??? Hypertension ??? Kidney problem ??? Pneumonia ??? TBI (traumatic brain injury) 1979 Past Surgical History: Procedure Laterality Date ??? CREATED BY INTERFACE Entered not Verified Procedure Date: 09/19/2010 ??? IR DIALYSIS ACCESS - AV FISTULA EVALUATIONS 11/30/2019 IR Dialysis Access - AV Fistula Evaluations 11/30/2019 Sabrina Velez MD [facility] ??? IR DIALYSIS ACCESS - AV FISTULA EVALUATIONS 01/07/2021 IR Dialysis Access - AV Fistula Evaluations 01/07/2021 Sabrina Velez MD [facility] ??? IR DIALYSIS ACCESS - AV FISTULA EVALUATIONS 09/25/2021 IR Dialysis Access - AV Fistula Evaluations 09/25/2021 Kanu Apple MD [facility] ??? IR DIALYSIS ACCESS - AV FISTULA EVALUATIONS 10/10/2021 IR Dialysis Access - AV Fistula Evaluations 10/10/2021 Walt Lin MD [facility] ??? IR DIALYSIS ACCESS - AV FISTULA EVALUATIONS 11/05/2021 IR Dialysis Access - AV Fistula Evaluations 11/05/2021 Walt Lin MD [facility] ??? IR DIALYSIS ACCESS - TUNNELED LINE 07/30/2018 IR Dialysis Access - Tunneled Line 07/30/2018 Walt Lin MD [facility] ??? IR DIALYSIS ACCESS - TUNNELED LINE 08/30/2018 IR Dialysis Access - Tunneled Line 08/30/2018 Erwin Simon, [facility] ??? IR DIALYSIS ACCESS - TUNNELED LINE 12/27/2020 IR Dialysis Access - Tunneled Line 12/27/2020 Kanu Apple MD [facility] ??? IR DIALYSIS ACCESS - TUNNELED LINE 01/23/2021 IR Dialysis Access - Tunneled Line 01/23/2021 Kanu Apple MD [facility] ??? IR DIALYSIS ACCESS - TUNNELED LINE 03/20/2021 IR Dialysis Access - Tunneled Line 03/20/2021 Tab Harmon MD [facility] ??? IR DIALYSIS ACCESS - TUNNELED LINE 09/29/2021 IR Dialysis Access - Tunneled Line 09/29/2021 Tab Harmon MD [facility] ??? IR DIALYSIS ACCESS - TUNNELED LINE 09/30/2022 IR Dialysis Access - Tunneled Line 09/30/2022 Sabrina Velez MD [facility] ??? IR DIALYSIS ACCESS - TUNNELED LINE 10/14/2022 IR Dialysis Access - Tunneled Line 10/14/2022 Sabrina Velez MD [facility] ??? IR LINE OR TUBE REMOVAL IN RECOVERY ROOM 07/31/2021 IR Line or Tube Removal in Recovery Room 07/31/2021 [facility] ??? KIDNEY TRANSPLANT KIDNEY TRANSPLANT / RECIPIENT/LT Procedure Date: 11/26/2002 ??? PRO ANASTOMOSIS, AV, ANY SITE Right 05/22/2021 AV FISTULA CREATION, DIRECT HEMODIALYSIS, ANY SITE, EG MADYSON FISTULA LOWER EXTREMITY (WRVU 11.9) performed by Odalis Elias MD at [facility] OR ??? PRO CREAT AV FISTULA, NON-AUTOGENOUS GRAFT Right 12/13/2018 PLACEMENT, AV HEMODIALYSIS GRAFT, SYNTHETIC GRAFT, UPPER EXTREMITY (WRVU 12.03) performed by Mary Garay MD at [facility] OR ??? PRO CREAT AV FISTULA, NON-AUTOGENOUS GRAFT Left 04/03/2021 PLACEMENT, AV HEMODIALYSIS GRAFT, SYNTHETIC GRAFT, UPPER EXTREMITY (WRVU 12.03) performed by Odalis Elias MD at [facility] OR ? ? PRO DEBRIDEMENT SUBCUTANEOUS TISSUE 20 SQCM/< Left 02/20/2016 DEBRIDEMENT SKIN AND SUBCU, HEAD/NECK performed by Miguel Angel Moreno MD at [facility] OR ??? PRO DECOMPRESS FOREARM, BRACH ART EXPLOR Left 04/06/2018 FASCIOTOMY, FOREARM, WITH BRACHIAL ARTERY EXPLORATION (WRVU 8.41) performed by Lida Peter MDat [facility] OR ??? PRO DIRECT REPAIR RUPTURED ANEURYSM, AXILLO-BRACHIAL ARM INCIS Left 04/06/2018 @REPAIR, RUPTURED AXILLARY OR BRACHIAL ARTERY ANEURYSM BY ARM INCISION (WRVU *) performed by Lida Peter MD at [facility] OR ??? PRO EXC PAROTD, TOTAL, UNILAT RAD NECK Left 02/05/2016 @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, TOTAL, WITH UNILATERAL RADICAL NECK DISSECTION performed by Miguel Angel Moreno MD at [facility] OR ??? PRO EXC SKIN MALIG 3.1-4CM FACE, FACIAL Left 02/05/2016 EXC MALIGNANT LESION, 3.1 TO 4.0CM, FACE performed by Miguel Angel Moreno MD at [facility] OR ? ? PRO EXC SKIN MALIG >4CM TRUNK, ARM, LEG 04/19/2012 EXC MALIGNANT LESION, MICHAEL > 4.0CM, TRUNK performed by SABRINA SANCHEZ at [facility] OR ??? PRO LAP, RADICAL NEPHRECTOMY Left 05/31/2017 @LAPAROSCOPY, RADICAL NEPHRECTOMY (WRVU 25.06) performed by Jax Mills MD at [facility] OR ??? PRO LIGATN ANGIOACCESS AV FISTULA Left 04/19/2018 LIGATION OR BANDING OF HEMODIALYSIS FISTULA OR GRAFT UPPER EXTREMITY (WRVU 6.25) performed by Odalis Elias MD at [facility] OR ??? PRO NEGATIVE PRESSURE WOUND THERAPY, LESS THAN OR EQUAL TO 50 SQCM Left 04/19/2018 DRESSING CHANGE (VAC ASSISTED) UP TO 50SQ.CM (WRVU 0.55) performed by Odalis Elias MD [facility] MAIN OR ??? PRO PHLEB VEINS - EXTREM - TO 20 Right 05/22/2021 STAB PHLEBECTOMY LISBET VEINS 1 EXTREMITY 10-20 INCISIONS (WRVU 7.71) performed by Odalis Elias MD at [facility] OR ??? PRO REBL VES GRAFT, UP EXTREM Left 04/06/2018 REPAIR BLOOD VESSEL WITH GRAFT OTHER THAN VEIN, UPPER EXTREMITY (WRVU 15.83) performed by Lida Peter MD at [facility] OR ??? PRO RELIEVE PRESSURE ON NERVE(S) Left 04/06/2018 (MSURG) CARPAL TUNNEL (WRVU 4.82) performed by Silviano Sparks MD at [facility] OR ??? PRO REPAIR INTERMEDIATE S/A/T/E 2.6-7.5 CM 04/19/2012 REPAIR INTERMEDIATE WOUND, (NO HANDS OR FEET) 2.6 TO 7.5CM, UPPER EXTREMITY performed by SABRINA SANCHEZ at [facility] OR ? ? PRO REPAIR INTERMEDIATE S/A/T/E > 30.0 CM Left 04/14/2018 REPAIR INTERMEDIATE WOUND, (NO HANDS OR FEET) >30.0CM, UPPER EXTREMITY (WRVU 5) performed by Yimi Easton MD at [facility] OR ??? PRO REVISE MEDIAN N/CARPAL TUNNEL SURG Left 04/06/2018 MEDIAN NERVE DECOMPRESSION (CARPAL TUNNEL RELEASE) (WRVU 4.97) performed by Lida Peter MD [facility] MAIN OR ? ? PRO SPLIT GRFT TRUNK, ARM, LEG <100SQCM Left 04/26/2018 SPLIT THICK SKIN GRAFT,100 SQ CM OR LESS, ARMS (WRVU 9.9) performed by Silviano Sparks MD at [facility] OR ? ? PRO SPLIT GRFT, HEAD, FAC, HAND, FEET <100SQCM N/A 02/20/2016 SPLIT THICKNESS SKIN SPLIT GRAFT,100SQ CM OR LESS, NECK performed by Miguel Angel Moreno MD at [facility] OR ??? PRO SPLIT GRFT, TRUNK, ARM, LEG EA 100SQCM N/A 04/26/2018 EA.ADDITIONAL 100SQ.CM STSG (WRVU 1.72) performed by Silviano Sparks MD at [facility] OR ??? PRO UNLISTED PROCEDURE VASCULAR SURGERY Left 11/20/2015 LIGATION\REPAIR AV FISTULA performed by Camilo Ireland MD at [facility] OR ??? PRO UNLISTED PROCEDURE VASCULAR SURGERY Left 11/20/2015 EXCISION VEIN FROM HAND performed by Camilo Ireland MD at [facility] OR ??? PRO UPPER GI ENDOSCOPY, BIOPSY N/A 05/13/2017 EGD WITH BIOPSY (WRVU 2.49) performed by Aditya Barrera MD at [facility] ??? US RENAL TRANSPLANT BIOPSY 12/31/2010 ??? US RENAL TRANSPLANT RIGHT Right 06/04/2018 US Renal Transplant Right 06/04/2018 [facility] ULTRASOUND Social History: Home Setup: Pt lives in an assisted living facility that is handicap accessible. DME: walking poles Baseline ADL/Mobility: Independent with ADLs. Facility provides assist with meals, medication management, laundry, and cleaning. Utilizes walking poles for mobility. Facility may provide assist with any needs. Fall Hx: able to recall he fell out of WC prior to admission Precautions/Special Considerations: full code, fall risk, risk for skin breakdown, activity as tolerated Subjective: You call and they can help with anything in reference to [facility] assistance Objective: Seen today for OT evaluation. Cognitive Status/Behavior: ?? Behavior / Mood: alert, cooperative and confused ?? Alert and oriented to: person, place, month, year, and situation ?? Follows commands: 2 step and 100% of the time ?? Attention: distractible and requires cues to redirect ?? Safety awareness: decreased insight into deficits ?? Pt able to complete immediate and delayed recall of 4 items ?? Unable to sequence 4 items from lightest to heaviest with max cues. Required increased time to attempt ?? Able to sequence backwards order of months from Jun-Jul Vision & Perception: ?? corrective lenses for reading Communication: WFL Range of motion, strength, coordination: BUE/BLE: WFL Sensation: intact Activities of Daily Living: Self-feeding: independent as evidenced by good BUE ROM, strength, and coordination Grooming: independent as evidenced by good BUE ROM, strength, and coordination Dressing: supervision to don pants seated in chair. Hiked up pants standing with SBA for standing balance Bathing: will need supervision based on transfers and standing balance Toileting: will need supervision-SBA based on transfers and supervision Functional Mobility: Sit to stand: supervision with FWW, min cues for FWW management Stand to sit: mod I Balance: Sitting balance: good Standing balance: good Vitals: 98% O2 on RA, 50s-60s HR Pain: c/o upper back pain Skin: intact Education: patient have been educated on Role of occupational therapy/rehabilitation, Transfers, Assistive device/technique, ADL, Safety, Functional Mobility, Home Management, Balance, Recommendations and Discharge planning and verbalize understanding. Patient status, treatment, and mobility recommendations discussed with nursing. Pt in chair with all needs met, call daniels within reach, and chair alarm on Assessment: Pt has been seen for occupational therapy evaluation. Adama Ram presents with the following performance skill deficits and client factors: increased pain, decreased sitting/standing balance and cognitive deficits. These performance deficits have led to activity limitations and participation restrictions in the following areas of occupation: dressing, bathing, toileting and transfers/mobility. However, despite the deficits listed above pt demonstrates the ability to don pants andcomplete transfers with with supervision-SBA. He required increased time to complete informal cognitive screenings, indicating he may have impairments with sequencing. Pt appeared to be at his functional baseline. Recommend [facility] continue to provide assist with IADLs, medication management, and ADLs as needed. Anticipate that pt will return to the assisted living facility with assistance once medically ready. Do not anticipate further OT needs while hospitalized. Equipment Recommendations: Equipment Needs Upon Discharge (OT): None Anticipated Discharge Disposition (OT): assisted living facility Other Recommendations: ?? Utilize upright chair position using bed features or transfer to recliner chair as appropriate with SBA and FWW, ambulate as tolerated ?? Encourage participation in ADL's by providing set up A on tray table and physical assist only asneeded Other Recommendations: No other consults recommended at this time Plan: OT: Therapy Frequency (OT): evaluation only Total Minutes, Occupational Therapy: 24 (low complexity [id number]) OT Evaluation Code Rationale: ?? Diagnosis & Pertinent Co-Morbidities affecting Plan of Care: see PMHx ?? Occupational Profile & Client History: Brief Expanded Extensive x ?? Assessment of Occupational Performance: 1-3 performance deficits 3-5 performance deficits x 5 + performance deficits ?? Clinical Decision Making: Low Moderate High x Clinical decision making of low complexity using standardized patient assessment instrument and measurable assessment of functional outcome. Radha Otto 10/21/2022 Occupational Therapy Rehabilitation Department Associated attestation - Dee Dee Wood OT - 10/21/2022 4:08 PM EDT Patient status, treatment interventions, and goals discussed with student. I am in agreement with all details and associated flowsheet rows as documented and was present for all aspects of the patient treatment session. Treatment session performed and note written with this play writer. Please do not hesitate to contact this play writer with any questions, thank you. Dee Dee Wood OT Pager #[phone] Inpatient Rehabilitation * Joann Thurman MD - 10/21/2022 6:19 AM EDT [facility] Team Inpatient Progress Note Patient Info: Name: Adama Ram : 1960 Attending Provider: Jeana Beach MD ID: Adama Ram is a 62 y.o. 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 Active Hospital Problems Diagnosis ??? Hyperkalemia Resolved Hospital Problems No resolved problems to display. Interval History: Yesterday: - dialysis, potassium 5.6 during - checked tacrolimus level (6.1), decreased dosing - talked to pt's brother and head nurse at [facility] about his neuro history and baseline mental status Overnight: - POLLY This AM: - Meds: ??? tacrolimus 1 mg Oral BID ??? allopurinoL 150 mg Oral Nightly ??? aspirin EC 81 mg Oral Daily ??? levETIRAcetam 500 mg Oral BID ??? vitamin B Complex-vitamin C-folic Acid 1 tablet Oral Daily ??? pantoprazole EC 20 mg Oral Daily ??? sevelamer carbonate 800 mg Oral TID WC ??? levothyroxine 100 mcg Oral QAM ??? senna-docusate 2 tablet Oral BID ??? heparin (porcine) 5,000 Units Subcutaneous Q8H EDWARD PRN medications sodium chloride 0.9%, acetaminophen Current Facility-Administered Medications Medication Dose Route Frequency ??? sodium chloride 0.9% infusion 100 mL Intravenous Q15 Min PRN ??? acetaminophen (Tylenol) tablet 650 mg 650 mg Oral Q6H PRN Physical Exam: Last value Range last 24 hrs Temperature Temp: 36.4 ??C (97.5 ??F) Temp: [36.4 ??C (97.5 ??F)-36.7 ??C (98 ??F)] Heart Rate Heart Rate: 56 Heart Rate: [56-63] Blood Pressure BP: 121/90 BP: (104-134)/(45-90) Respiratory Rate Resp: 18 Resp: [18-19] SpO2 SpO2: 94 % SpO2: [94 %-99 %] Intake/Output Summary (Last 24 hours) at 10/21/2022 0619 Last data filed at 10/20/2022 1311 Gross per 24 hour Intake 240 ml Output 1300 ml Net -1060 ml Patient Vitals for the past 168 hrs: Weight 10/20/22 1311 69.8 kg (153 lb 12.8 oz) Admit wt: 69.76 kg Gen: Pleasant, appears NAD Eyes: PERRLA, EOMI, anicteric ENT: moist mucous membranes, neck supple, tunneled line intact with surrounding erythema, no tenderness upon palpation CV: RRR, S1 S2 normal, without murmurs, rubs, or gallops Respiratory: clear to auscultation bilaterally, without rales or rhonchi, good inspiratory effort GI: soft, nontender, nondistended, normoactive bowel sounds Skin: normal temperature and turgor, no cyanosis, no lesions, rashes, or petechiae on limited exam Neuro: Alert and oriented to person and place but not time. Easily distracted when asked questions and has some nonsensical, rapid speech at times Musculoskeletal: No joint swelling or pain Ext: No edema, 2+ peripheral pulses Labs: Recent Labs 10/20/2290410/19/221957 WBC 5.1 6.2 HGB 10.5* 11.4* HCT 32.2* 34.5* PLATELET 166 179 Recent Labs 10/20/2290410/19/221957 NA 142 144 K 5.6* 4.9 CL 98 98 CO2 31 29 BUN 49* 46* CREATININE 9.82* 9.50* GLUCOSE 116 101 Recent Labs 10/20/2290410/19/221957 CALCIUM 8.5 9.1 MAGNESIUM 0.88 0.96 PHOS 3.5 -- Recent Labs 10/19/221957 AST 16 ALT 10 ALKPHOS 122 BILITOT 0.5 Imaging: None Microbiology: N/A Assessment and Plan: Adama Ginna Ram is a 62 y.o. 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 10/21/2022 Overall Plan: - start Renavite per nephrology - PT recommending return to assisted living when medically ready - Medically ready for discharge #Hyperkalemia, resolved #ESRD on dialysis #s/p kidney transplant Upon arrival to from OSH, potassium had normalized to 4.9. He had received 1 dose of Kayexalate prior to transferring. Nephro was consulted for dialysis, completed on 10/20. Labs followed and remained within normal limits. Will continue with prior dialysis schedule upon discharge. - s/p 1 dose Kayexalate at OSH - nephrology consult - inpatient dialysis 10/20 - monitor K - continue prograf 2mg qAM, 1mg qPM - continue sevelamer 800 mg TID - continue Renavite #Hx TBI #Seizure Disorder #Concern for Potential Change in Baseline Mental Status He fell out of his wheelchair at his assisted living facility, which is what brought him to the [facility]where he worked up for hypotension and hyperkalemia. Brother, Lucas, is DPOA and lives in [place]. Spoke with Lucas on 10/20 and his physical distance from Adama limits his perception/knowledge of [facility] day to day functional and cognitive status, although does state that he believes he has had more of a cognitive decline in the recent months. Had a long discussion with Anayeli, the head nurse at [facility], who states he has been falling more often during the last several months, but otherwise his cognitive status is for the most part normal. He's had episodes of acute confusion when he becomes hypotensive, for which his blood pressure medications Losartan and Coreg have been recently discontinued. Otherwise, she hasn't noticed much change and says he is A&Ox3 when she cares for him, with the exception of the times when he is hypotensive. - continue Keppra 500 mg BID for seizure disorder Chronic Problems?? #Gout #Hypothyroidism #GERD - continue allopurinol 150 mg qHS for gout - continue aspirin 81 mg qd - continue Levothyroxine 100 mcg qAM - continue Pantoprazole 20 mg qd ?? 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 He would not find his current physical limitations to be an acceptable quality of life and therefore would not want CPR, but would be okay with all pre-arrest care. # Dispo: back to [facility], medically ready Joann Thurman MD PGY-1, Anesthesiology 10/21/2022 [place] Team - Pager [phone] Associated attestation - Jeana Beach MD - 10/21/2022 5:51 PM EDT Attending Attestation Please see Joann Thurman MD???s note for details of the patient history of presentation and data. I have seen and examined the patient myself and reviewed pertinent studies. I have discussed, reviewed and agree with the documented History, Physical findings, Assessment and Plan of care. Patient OK for discharge today. See discharge summary for details. JEANA BEACH MD 10/21/2022 * Radha Otto - 10/20/2022 3:02 PM EDT Occupational Therapy Note Document Type: contact Total Minutes, Occupational Therapy: 0 Reason: OT consult received and chart reviewed. Patient off the floor at dialysis this morning. Will follow up with evaluation when appropriate. Radha Otto 10/20/2022 Occupational Therapy Rehabilitation Department Associated attestation - Dee Dee Wood OT - 10/20/2022 3:08 PM EDT Patient status, treatment interventions, and goals discussed with student. I am in agreement with all details and associated flowsheet rows as documented and was present for all aspects of the patient treatment session. Treatment session performed and note written with this play writer. Please do not hesitate to contact this play writer with any questions, thank you. Dee Dee Wood OT Pager #[phone] Inpatient Rehabilitation * Elida Kanu M, PT - 10/20/2022 2:52 PM EDT Physical Therapy Evaluation Patient profile: Adama Ram is a 62 y.o. 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 admitted on 10/19/[address] Jeana Beach MD after a fall, found to be hypotensive and hyperkalemic. Patient with the following active problems: Past Medical History: Diagnosis Date ??? BP (high blood pressure) ??? DVT (deep venous thrombosis) ??? Gout ??? Hypertension ??? Kidney problem ??? Pneumonia ??? TBI (traumatic brain injury) 1980 Past Surgical History: Procedure Laterality Date ??? CREATED BY INTERFACE Entered not Verified Procedure Date: 09/19/2010 ??? IR DIALYSIS ACCESS - AV FISTULA EVALUATIONS 11/30/2019 IR Dialysis Access - AV Fistula Evaluations 11/30/2019 Sabrina Velez MD [facility] ??? IR DIALYSIS ACCESS - AV FISTULA EVALUATIONS 01/07/2021 IR Dialysis Access - AV Fistula Evaluations 01/07/2021 Sabrina Velez MD [facility] ??? IR DIALYSIS ACCESS - AV FISTULA EVALUATIONS 09/25/2021 IR Dialysis Access - AV Fistula Evaluations 09/25/2021 Kanu Apple MD [facility] ??? IR DIALYSIS ACCESS - AV FISTULA EVALUATIONS 10/10/2021 IR Dialysis Access - AV Fistula Evaluations 10/10/2021 Walt Lin MD [facility] ??? IR DIALYSIS ACCESS - AV FISTULA EVALUATIONS 11/05/2021 IR Dialysis Access - AV Fistula Evaluations 11/05/2021 Walt Lin MD [facility] ??? IR DIALYSIS ACCESS - TUNNELED LINE 07/30/2018 IR Dialysis Access - Tunneled Line 07/30/2018 Walt Lin MD [facility] ??? IR DIALYSIS ACCESS - TUNNELED LINE 08/30/2018 IR Dialysis Access - Tunneled Line 08/30/2018 Erwin Simon APRN [facility] ??? IR DIALYSIS ACCESS - TUNNELED LINE 12/27/2020 IR Dialysis Access - Tunneled Line 12/27/2020 Kanu Apple MD [facility] ??? IR DIALYSIS ACCESS - TUNNELED LINE 01/23/2021 IR Dialysis Access - Tunneled Line 01/23/2021 Kanu Apple MD [facility] ??? IR DIALYSIS ACCESS - TUNNELED LINE 03/20/2021 IR Dialysis Access - Tunneled Line 03/20/2021 Tab Harmon MD [facility] ??? IR DIALYSIS ACCESS - TUNNELED LINE 09/29/2021 IR Dialysis Access - Tunneled Line 09/29/2021 Tab Harmon MD [facility] ??? IR DIALYSIS ACCESS - TUNNELED LINE 09/30/2022 IR Dialysis Access - Tunneled Line 09/30/2022 Sabrina Velez MD [facility] ??? IR DIALYSIS ACCESS - TUNNELED LINE 10/14/2022 IR Dialysis Access - Tunneled Line 10/14/2022 Sabrina Velez MD [facility] ??? IR LINE OR TUBE REMOVAL IN RECOVERY ROOM 07/31/2021 IR Line or Tube Removal in Recovery Room 07/31/2021 [facility] ??? KIDNEY TRANSPLANT KIDNEY TRANSPLANT / RECIPIENT/LT Procedure Date: 11/26/2002 ??? PRO ANASTOMOSIS, AV, ANY SITE Right 05/22/2021 AV FISTULA CREATION, DIRECT HEMODIALYSIS, ANY SITE, EG MADYSON FISTULA LOWER EXTREMITY (WRVU 11.9) performed by Odalis Elias MD at [facility] MA[facility] OR ??? PRO CREAT AV FISTULA, NON-AUTOGENOUS GRAFT Right 12/13/2018 PLACEMENT, AV HEMODIALYSIS GRAFT, SYNTHETIC GRAFT, UPPER EXTREMITY (WRVU 12.03) performed by Mary Garay MD at [facility] OR ??? PRO CREAT AV FISTULA, NON-AUTOGENOUS GRAFT Left 04/03/2021 PLACEMENT, AV HEMODIALYSIS GRAFT, SYNTHETIC GRAFT, UPPER EXTREMITY (WRVU 12.03) performed by Odalis Elias MD at [facility] OR ? ? PRO DEBRIDEMENT SUBCUTANEOUS TISSUE 20 SQCM/< Left 02/20/2016 DEBRIDEMENT SKIN AND SUBCU, HEAD/NECK performed by Miguel Angel Moreno MD at [facility] OR ??? PRO DECOMPRESS FOREARM, BRACH ART EXPLOR Left 04/06/2018 FASCIOTOMY, FOREARM, WITH BRACHIAL ARTERY EXPLORATION (WRVU 8.41) performed by Lida Peter MDat [facility] OR ??? PRO DIRECT REPAIR RUPTURED ANEURYSM, AXILLO-BRACHIAL ARM INCIS Left 04/06/2018 @REPAIR, RUPTURED AXILLARY OR BRACHIAL ARTERY ANEURYSM BY ARM INCISION (WRVU *) performed by Lida Peter MD at [facility] OR ??? PRO EXC PAROTD, TOTAL, UNILAT RAD NECK Left 02/05/2016 @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, TOTAL, WITH UNILATERAL RADICAL NECK DISSECTION performed by Miguel Angel Moreno MD at [facility] OR ??? PRO EXC SKIN MALIG 3.1-4CM FACE, FACIAL Left 02/05/2016 EXC MALIGNANT LESION, 3.1 TO 4.0CM, FACE performed by Miguel Angel Moreno MD at [facility] OR ? ? PRO EXC SKIN MALIG >4CM TRUNK, ARM, LEG 04/19/2012 EXC MALIGNANT LESION, MICHAEL > 4.0CM, TRUNK performed by SABRINA SANCHEZ at [facility] OR ??? PRO LAP, RADICAL NEPHRECTOMY Left 05/31/2017 @LAPAROSCOPY, RADICAL NEPHRECTOMY (WRVU 25.06) performed by Jax Mills MD at [facility] OR ??? PRO LIGATN ANGIOACCESS AV FISTULA Left 04/19/2018 LIGATION OR BANDING OF HEMODIALYSIS FISTULA OR GRAFT UPPER EXTREMITY (WRVU 6.25) performed by Odalis Elias MD at [facility] OR ??? PRO NEGATIVE PRESSURE WOUND THERAPY, LESS THAN OR EQUAL TO 50 SQCM Left 04/19/2018 DRESSING CHANGE (VAC ASSISTED) UP TO 50SQ.CM (WRVU 0.55) performed by Odalis Elias MD [facility] OR ??? PRO PHLEB VEINS - EXTREM - TO 20 Right 05/22/2021 STAB PHLEBECTOMY LISBET VEINS 1 EXTREMITY 10-20 INCISIONS (WRVU 7.71) performed by Odalis Elias MD at [facility] OR ??? PRO REBL VES GRAFT, UP EXTREM Left 04/06/2018 REPAIR BLOOD VESSEL WITH GRAFT OTHER THAN VEIN, UPPER EXTREMITY (WRVU 15.83) performed by Lida Peter MD at [facility] OR ??? PRO RELIEVE PRESSURE ON NERVE(S) Left 04/06/2018 (MSURG) CARPAL TUNNEL (WRVU 4.82) performed by Silviano Sparks MD at [facility] OR ??? PRO REPAIR INTERMEDIATE S/A/T/E 2.6-7.5 CM 04/19/2012 REPAIR INTERMEDIATE WOUND, (NO HANDS OR FEET) 2.6 TO 7.5CM, UPPER EXTREMITY performed by SABRINA SANCHEZ at [facility] OR ? ? PRO REPAIR INTERMEDIATE S/A/T/E > 30.0 CM Left 04/14/2018 REPAIR INTERMEDIATE WOUND, (NO HANDS OR FEET) >30.0CM, UPPER EXTREMITY (WRVU 5) performed by Yimi Easton MD at [facility] OR ??? PRO REVISE MEDIAN N/CARPAL TUNNEL SURG Left 04/06/2018 MEDIAN NERVE DECOMPRESSION (CARPAL TUNNEL RELEASE) (WRVU 4.97) performed by Lida Peter MD [facility] MAIN OR ? ? PRO SPLIT GRFT TRUNK, ARM, LEG <100SQCM Left 04/26/2018 SPLIT THICK SKIN GRAFT,100 SQ CM OR LESS, ARMS (WRVU 9.9) performed by Silviano Sparks MD at [facility] OR ? ? PRO SPLIT GRFT, HEAD, FAC, HAND, FEET <100SQCM N/A 02/20/2016 SPLIT THICKNESS SKIN SPLIT GRAFT,100SQ CM OR LESS, NECK performed by Miguel Angel Moreno MD at [facility] OR ??? PRO SPLIT GRFT, TRUNK, ARM, LEG EA 100SQCM N/A 04/26/2018 EA.ADDITIONAL 100SQ.CM STSG (WRVU 1.72) performed by Silviano Sparks MD at [facility] OR ??? PRO UNLISTED PROCEDURE VASCULAR SURGERY Left 11/20/2015 LIGATION\REPAIR AV FISTULA performed by Camilo Ireland MD at [facility] MA[facility] OR ??? PRO UNLISTED PROCEDURE VASCULAR SURGERY Left 11/20/2015 EXCISION VEIN FROM HAND performed by Camilo Ireland MD at [facility] OR ??? PRO UPPER GI ENDOSCOPY, BIOPSY N/A 05/13/2017 EGD WITH BIOPSY (WRVU 2.49) performed by Aditya Barrera MD at [facility] ENDOSCOPY ??? US RENAL TRANSPLANT BIOPSY 12/31/2010 ??? US RENAL TRANSPLANT RIGHT Right 06/04/2018 US Renal Transplant Right 06/04/2018 [facility] RAD ULTRASOUND Active Non-Hospital Problems Diagnosis ??? ESRD (end stage renal disease) on dialysis ??? Failed kidney transplant ??? CKD (chronic kidney disease) stage 5, GFR less than 15 ml/min ??? Hypertension secondary to other renal disorders ??? Renal osteodystrophy ??? RTA (renal tubular acidosis) ??? SDH (subdural hematoma) ??? Anemia of chronic renal failure ??? Subarachnoid hemorrhage ??? Primary papillary carcinoma of left kidney ??? Gastrointestinal hemorrhage ??? Bradycardia ??? Left renal mass ??? Weight loss ??? 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 residential current use of immunosuppressive drug ??? H/O kidney transplant ??? Squamous cell carcinoma of skin of other parts of face ??? Atopic rhinitis ??? Injury of head ??? Non-neoplastic nevus ??? Varicose veins of lower extremities ??? Rosacea ??? Acne rosacea ??? Colon polyp ??? BCC (basal cell carcinoma of skin) ??? IgA nephropathy ??? Gout ??? Hypertension ??? Epilepsy Social History: Home set-up: Patient lives at an [facility] facility in [facility]. He has a roommate will call daniels for all needs. Stairs: Patient lives on third floor however has elevator access Baseline Mobility: Reports independence with mobility, utilizing trekking poles for mobility withinthe building and when he goes on walks. Facility provides meals, manages medications, and can provide supervision/assist as patient requests. Notes he enjoys walking up and down the halls and the stairs, however recently was told not to do the latter alone. Also enjoys going on walks into [place] when the weather is nice. Equipment at home: multiple sets of trekking poles Fall history: denies beyond recent fall leading to admission, reason for fall remains unclear Precautions/Special Considerations: At risk to fall, DNR, NO BP BUE (LLE ONLY) Lines: Tony, Telemetry, PIV and tunneled central line Activity Orders: Activity as tolerated Diet: Renal diet, 2 GM NA Mobility and Positioning Recommendations: ?? Patient to utilize FWW or personal trekking poles and contact guard assist for ambulation and transfers with nursing. ?? Please encourage up to chair for meal times as able. ?? Patient encouraged to ambulate frequently with staff, getting into the bathroom for toileting and walking in the hallway >/= 3 times daily as able. Subjective: ???My brother gets me sets of these trekking poles all the time?? Objective: Patient seen for evaluation today. Met seated upright in bed, agreeable and eager for PTservices. Pain: Reporting discomfort medial to R scapula Vital Signs: SpO2 >95% throughout, HR 70s bpm. BP 100/74 supine, 94/67mmHg after initial stand (with LEs elevated on bed), 98/64 mmHg after ambulation (with LEs elevated in bedside recliner). Denied dizziness/lightheadedness Behavior / Mood: alert and cooperative Alert and oriented to: person, place and situation Follows commands: 1 step, 100% of the time and requires increased time Attention: distractible and difficulty attending to task/directions Safety awareness: moderate impairment Vision: WFL Skin: Observable skin clean/dry/intact Musculoskeletal: ROM: WFL BUE&BLE Strength: WFL BUE&BLE Sensation: denies numbness/tingling/paresthesias Bed Mobility: Supine to Sit: independent Sit to Supine: independent Transfers: Sit to Stand: supervised using no assistive device Stand to Sit: supervised using no assistive device Bed to Chair: contact guard assist using no assistive device, controlling descent/maintaining safety with BUEs Gait: Distance: 150' Device used: personal VIOSOing poles Level of assist: contact guard assist Gait mechanics: CGA offered d/t concern of hypotension following HD. Patient performing 4 point gait with narrow JUAN MANUEL, increased trunk sway and variable LE placement. Multiple instances of small instability however patient self correcting. Cues for route finding. Stairs: N/a Balance: Sitting Static: Independent Sitting Dynamic: Independent Standing Static: Fair+ w/o AD, increased postural sway in quiet stance Standing Dynamic / Gait: Fair w/ personal trekking poles Therex: N/a Education: patient has been educated on Assistive device/technique, Gait , Activity pacing/Energy conservation, Role of therapy and Discharge planning and verbalizes and demonstrates understanding, however will benefit from continued reinforcement from staff. Patient status, treatment, and mobility recommendations discussed with nursing. Assessment: Adama Ram was seen today for physical therapy evaluation. Patient presents with hypotension s/p fall with limitations in endurance, standing balance, cognition, safety awareness, gaitmechanics and activity tolerance. Despite these deficits, the patient was able to demonstrate safe m obility in an environment similar to that of their home, including ambulation of household distances with his personal trekking poles (his AD of choice). Events leading up to patient's fall were a bit unclear; while he was in a wheelchair he is reported quite active at baseline and enjoys ambulating in and around the facility he lives at. While there, he has all IADL needs address and reports having a call daniels for any additional needs. At this time, patient has met all physical therapy goals for discharge to return to [facility] when medically appropriate. Will place patient on monitor and encourage continued mobility with mobility tech and nursing staff while in the acute care setting. Discharge Recommendations: Based on the current findings, Anticipated Discharge Disposition (PT): assisted living facility (return to) when medically ready for hospital discharge. Discharge recommendation is based on the patient's current physical impairments, prior functional status, potential to return to prior level of function, patient motivation, reported home support, potential for functional gains, current level of endurance, reported home environment and anticipated trajectory of progress and may change based on patient progress during this hospitalization. Cleared Physical Therapy? Yes Consult Recommendations: No other consults recommended at this time. Equipment needs: Anticipated Equipment Needs at Discharge (PT): None Physical Therapy Goals: All physical therapy goals met during initial evaluation. Plan: Therapy Frequency (PT): Monitor. Patient agrees with plan as stated. 2017 PT Evaluation Code Rationale: ?? Diagnosis & Pertinent Co-Morbidities, personal factors, and present illness affecting Plan of Care: (see above); Additional personal factors or co- morbidities that impact plan: ?? Total # of Factors: 0 1-2 3+ x ?? Examination of body system impairments, functional limitations and behaviors, and/or participation restrictions. Addressing 1-2 elements Addressing 3 + elements Addressing 4 + elements x ?? Clinical presentation: See assessment above. Stable/Uncomplicated Evolving/Fluctuating Symptoms Unstable/Unpredictable x ?? Clinical decision making of low complexity based on pt's functional performance as outlined in this evaluation. Time IN / OUT: 9239-9721 Total Minutes, Physical Therapy: 22 Billing Code: Eval, Low Complexity Kanu Marrero, PT, DPT Pager: [phone] Physical Therapy Inpatient Rehabilitation Department * Joann Thurman MD - 10/20/2022 6:43 AM EDT [facility] Team Inpatient Progress Note Patient Info: Name: Adama Ram : 1960 Attending Provider: Jasmyne Dawkins MD ID: Adama Ram is a 62 y.o. 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 Active Hospital Problems Diagnosis ??? Hyperkalemia Resolved Hospital Problems No resolved problems to display. Interval History: Yesterday: - s/p 1 dose Kayexalate at OSH - K 4.9 on arrival Overnight: - nephrology consulted - paged about tunnel cath issues This AM: - denies pain, says he feels great Meds: ??? allopurinoL 150 mg Oral Nightly ??? aspirin EC 81 mg Oral Daily ??? levETIRAcetam 500 mg Oral BID ??? vitamin B Complex-vitamin C-folic Acid 1 tablet Oral Daily ??? pantoprazole EC 20 mg Oral Daily ??? sevelamer carbonate 800 mg Oral TID WC ??? levothyroxine 100 mcg Oral QAM ??? tacrolimus 2 mg Oral Daily And ??? tacrolimus 1 mg Oral Nightly ??? senna-docusate 2 tablet Oral BID ??? heparin (porcine) 5,000 Units Subcutaneous Q8H [facility] PRN medications acetaminophen Current Facility-Administered Medications Medication Dose Route Frequency ??? acetaminophen (Tylenol) tablet 650 mg 650 mg Oral Q6H PRN Physical Exam: Last value Range last 24 hrs Temperature Temp: 36.6 ??C (97.9 ??F) Temp: [36.4 ??C (97.5 ??F)-36.7 ??C (98.1 ??F)] Heart Rate Heart Rate: 59 Heart Rate: [59-69] Blood Pressure BP: 133/56 BP: (96-133)/(56-68) Respiratory Rate Resp: 16 Resp: [12-16] SpO2 SpO2: 96 % SpO2: [96 %-98 %] No intake or output data in the 24 hours ending 10/20/22 0643 No data found. Admit wt: Gen: Pleasant, appears NAD Eyes: PERRLA, EOMI, anicteric ENT: moist mucous membranes, neck supple, tunneled line intact with surrounding erythema, no tenderness upon palpation CV: RRR, S1 S2 normal, without murmurs, rubs, or gallops Respiratory: clear to auscultation bilaterally, without rales or rhonchi, good inspiratory effort GI: soft, nontender, nondistended, normoactive bowel sounds Skin: normal temperature and turgor, no cyanosis, no lesions, rashes, or petechiae on limited exam Neuro: Alert and oriented to person and place but not time. Easily distracted when asked questions and has some nonsensical, rapid speech at times Musculoskeletal: No joint swelling or pain Ext: No edema, 2+ peripheral pulses Labs: Recent Labs 10/19/221957 WBC 6.2 HGB 11.4* HCT 34.5* PLATELET 179 Recent Labs 10/19/221957 NA 144 K 4.9 CL 98 CO2 29 BUN 46* CREATININE 9.50* GLUCOSE 101 Recent Labs 10/19/221957 CALCIUM 9.1 MAGNESIUM 0.96 Recent Labs 10/19/221957 AST 16 ALT 10 ALKPHOS 122 BILITOT 0.5 Imaging: None Microbiology: N/A Assessment and Plan: Adama Ram is a 62 y.o. 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 10/20/2022 Overall Plan: - dialysis - f/u labs (to be drawn at dialysis) - check tacrolimus level - gain more information about his neuro history, baseline mental status #Hyperkalemia, resolved #ESRD on dialysis #s/p kidney transplant Upon arrival to from OSH, potassium had normalized to 4.9. He had received 1 dose of Kayexalate prior to transferring. Nephro was consulted overnight for potential dialysis if he remains an inpatient, appreciate their recs. - s/p 1 dose Kayexalate at OSH - nephrology consult - inpatient dialysis 10/20 - monitor K - continue prograf 2mg qAM, 1mg qPM - continue sevelamer 800 mg TID - continue Renavite #Hx TBI #Seizure Disorder #Concern for Potential Change in Baseline Mental Status It is currently unclear what pt's baseline mental status is with his history of TBI with seizure disorder. He fell out of his wheelchair at his assisted living facility, which is what brought him to the OSH where he worked up for hypotension and hyperkalemia. Brother is DPOA and lives in [place]. Will look for medical records and try talking with the brother again to see if he follows with a neurologist and if any of his current neuro findings are acutely worsening from his baseline. - continue Keppra 500 mg BID for seizure disorder Chronic Problems?? #Gout #Hypothyroidism #GERD - continue allopurinol 150 mg qHS for gout - continue aspirin 81 mg qd - continue Levothyroxine 100 mcg qAM - continue Pantoprazole 20 mg qd ?? 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 He would not find his current physical limitations to be an acceptable quality of life and therefore would not want CPR, but would be okay with all pre-arrest care. # Dispo: pending Joann Thurman MD PGY-1, Anesthesiology 10/20/2022 [facility] Team - Pager [phone] documented in this encounter H&P Notes * Cammy Winters MD - 10/19/2022 5:53 PM EDT [facility] Department of Internal Medicine Inpatient History and Physical Note Patient info: Adama Ram 1960 [id number] Carroll Fuentes DO Date of Admission: 10/19/2022 ( Hospital Day 1 day ) Attending: Dr. Beach Service: Medicine Source: patient Chief Complaint: No chief complaint on file. Patient ID: Adama Ram is a 62 y.o. 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 History of Present Illness: Adama Ram is a 62 yo male presenting as a transfer from [facility]. Presented there for hypotension to the 80s/50s, was found to have a potassium of 6.1, and was subsequently transferred here due to concern that he may need urgent dialysis and/or higher level of care. On my interview, Adama is a bit confused and has poor memory, which seems to be his mental baseline for the last several months. I called his brother and DPOA Lucas who reports a relatively rapid functional and mental decline since February 2022. Lucas reports that in February 2022, Adama was able to [place] to visit their mother, and that he's noticed a substantial decline in his memory since July of this year. Lucas admits that his assessment is limited as he resides in [place] and only speaks with Adama over the phone. Adama has lived at the [facility] since 2018, but on my interview told me he's not sure where helives. He did not remember when he last had dialysis, but Lucas tells me his last session was on Wednesday (Adama has been on a /Wed schedule since last fall according to Lucas). Labs at OSH notable for WBC 8; HgB 11.4; Plt 186 Cr 9.6, BUN 44 K 6.1, trop 80 (nml <60). EKG w/ no changes. Treated with kayexalate for hyperK prior to transfer. On my interview, Adama is alert and cooperative. He is aware that his memory is not intact. He denies headache, vision changes, chest pain, shortness of breath, abdominal pain, bowel changes, urinary symptoms, and new neurologic symptoms. Labs on admission revealed potassium improved to 4.9. He's been hemodynamically stable with HR in the 60s and BP 100s/60s. ROS: As per HPI Past Medical History: Past Medical History: Diagnosis Date ??? BP (high blood pressure) ??? DVT (deep venous thrombosis) ??? Gout ??? Hypertension ??? Kidney problem ??? Pneumonia ??? TBI (traumatic brain injury) 1979 Past Surgical History: Past Surgical History: Procedure Laterality Date ??? CREATED BY INTERFACE Entered not Verified Procedure Date: 09/19/2010 ??? IR DIALYSIS ACCESS - AV FISTULA EVALUATIONS 11/30/2019 IR Dialysis Access - AV Fistula Evaluations 11/30/2019 Sabrina Velez MD [facility] ??? IR DIALYSIS ACCESS - AV FISTULA EVALUATIONS 01/07/2021 IR Dialysis Access - AV Fistula Evaluations 01/07/2021 Sabrina Velez MD [facility] ??? IR DIALYSIS ACCESS - AV FISTULA EVALUATIONS 09/25/2021 IR Dialysis Access - AV Fistula Evaluations 09/25/2021 Kanu Apple MD [facility] ??? IR DIALYSIS ACCESS - AV FISTULA EVALUATIONS 10/10/2021 IR Dialysis Access - AV Fistula Evaluations 10/10/2021 Walt Lin MD [facility] ??? IR DIALYSIS ACCESS - AV FISTULA EVALUATIONS 11/05/2021 IR Dialysis Access - AV Fistula Evaluations 11/05/2021 Walt Lin MD [facility] ??? IR DIALYSIS ACCESS - TUNNELED LINE 07/30/2018 IR Dialysis Access - Tunneled Line 07/30/2018 Walt Lin MD [facility] ??? IR DIALYSIS ACCESS - TUNNELED LINE 08/30/2018 IR Dialysis Access - Tunneled Line 08/30/2018 Erwin Simon APRN [facility] ??? IR DIALYSIS ACCESS - TUNNELED LINE 12/27/2020 IR Dialysis Access - Tunneled Line 12/27/2020 Kanu Apple MD [facility] ??? IR DIALYSIS ACCESS - TUNNELED LINE 01/23/2021 IR Dialysis Access - Tunneled Line 01/23/2021 Kanu Apple MD [facility] ??? IR DIALYSIS ACCESS - TUNNELED LINE 03/20/2021 IR Dialysis Access - Tunneled Line 03/20/2021 Tab Harmon MD [facility] ??? IR DIALYSIS ACCESS - TUNNELED LINE 09/29/2021 IR Dialysis Access - Tunneled Line 09/29/2021 Tab Harmon MD [facility] ??? IR DIALYSIS ACCESS - TUNNELED LINE 09/30/2022 IR Dialysis Access - Tunneled Line 09/30/2022 Sabrina Velez MD [facility] ??? IR DIALYSIS ACCESS - TUNNELED LINE 10/14/2022 IR Dialysis Access - Tunneled Line 10/14/2022 Sabrina Velez MD [facility] ??? IR LINE OR TUBE REMOVAL IN RECOVERY ROOM 07/31/2021 IR Line or Tube Removal in Recovery Room 07/31/2021 [facility] ??? KIDNEY TRANSPLANT KIDNEY TRANSPLANT / RECIPIENT/LT Procedure Date: 11/26/2002 ??? PRO ANASTOMOSIS, AV, ANY SITE Right 05/22/2021 AV FISTULA CREATION, DIRECT HEMODIALYSIS, ANY SITE, EG MADYSON FISTULA LOWER EXTREMITY (WRVU 11.9) performed by Odalis Elias MD at [facility] OR ??? PRO CREAT AV FISTULA, NON-AUTOGENOUS GRAFT Right 12/13/2018 PLACEMENT, AV HEMODIALYSIS GRAFT, SYNTHETIC GRAFT, UPPER EXTREMITY (WRVU 12.03) performed by Mary Garay MD at [facility] OR ??? PRO CREAT AV FISTULA, NON-AUTOGENOUS GRAFT Left 04/03/2021 PLACEMENT, AV HEMODIALYSIS GRAFT, SYNTHETIC GRAFT, UPPER EXTREMITY (WRVU 12.03) performed by Odalis Elias MD at [facility] MA[facility] OR ? ? PRO DEBRIDEMENT SUBCUTANEOUS TISSUE 20 SQCM/< Left 02/20/2016 DEBRIDEMENT SKIN AND SUBCU, HEAD/NECK performed by Miguel Angel Moreno MD at [facility] OR ??? PRO DECOMPRESS FOREARM, BRACH ART EXPLOR Left 04/06/2018 FASCIOTOMY, FOREARM, WITH BRACHIAL ARTERY EXPLORATION (WRVU 8.41) performed by Lida Peter MDat [facility] OR ??? PRO DIRECT REPAIR RUPTURED ANEURYSM, AXILLO-BRACHIAL ARM INCIS Left 04/06/2018 @REPAIR, RUPTURED AXILLARY OR BRACHIAL ARTERY ANEURYSM BY ARM INCISION (WRVU *) performed by Lida Peter MD at [facility] OR ??? PRO EXC PAROTD, TOTAL, UNILAT RAD NECK Left 02/05/2016 @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, TOTAL, WITH UNILATERAL RADICAL NECK DISSECTION performed by Miguel Angel Moreno MD at [facility] OR ??? PRO EXC SKIN MALIG 3.1-4CM FACE, FACIAL Left 02/05/2016 EXC MALIGNANT LESION, 3.1 TO 4.0CM, FACE performed by Miguel Angel Moreno MD at [facility] OR ? ? PRO EXC SKIN MALIG >4CM TRUNK, ARM, LEG 04/19/2012 EXC MALIGNANT LESION, MICHAEL > 4.0CM, TRUNK performed by SABRINA SANCHEZ at [facility] OR ??? PRO LAP, RADICAL NEPHRECTOMY Left 05/31/2017 @LAPAROSCOPY, RADICAL NEPHRECTOMY (WRVU 25.06) performed by Jax Mills MD at [facility] OR ??? PRO LIGATN ANGIOACCESS AV FISTULA Left 04/19/2018 LIGATION OR BANDING OF HEMODIALYSIS FISTULA OR GRAFT UPPER EXTREMITY (WRVU 6.25) performed by Odalis Elias MD at [facility] MA[facility] OR ??? PRO NEGATIVE PRESSURE WOUND THERAPY, LESS THAN OR EQUAL TO 50 SQCM Left 04/19/2018 DRESSING CHANGE (VAC ASSISTED) UP TO 50SQ.CM (WRVU 0.55) performed by Odalis Elias MD [facility] MAIN OR ??? PRO PHLEB VEINS - EXTREM - TO 20 Right 05/22/2021 STAB PHLEBECTOMY LISBET VEINS 1 EXTREMITY 10-20 INCISIONS (WRVU 7.71) performed by Odalis Elias MD at [facility] MAIN OR ??? PRO REBL VES GRAFT, UP EXTREM Left 04/06/2018 REPAIR BLOOD VESSEL WITH GRAFT OTHER THAN VEIN, UPPER EXTREMITY (WRVU 15.83) performed by Lida Peter MD at [facility] MAIN OR ??? PRO RELIEVE PRESSURE ON NERVE(S) Left 04/06/2018 (MSURG) CARPAL TUNNEL (WRVU 4.82) performed by Silviano Sparks MD at [facility] MAIN OR ??? PRO REPAIR INTERMEDIATE S/A/T/E 2.6-7.5 CM 04/19/2012 REPAIR INTERMEDIATE WOUND, (NO HANDS OR FEET) 2.6 TO 7.5CM, UPPER EXTREMITY performed by SABRINA SANCHEZ at [facility] MAIN OR ? ? PRO REPAIR INTERMEDIATE S/A/T/E > 30.0 CM Left 04/14/2018 REPAIR INTERMEDIATE WOUND, (NO HANDS OR FEET) >30.0CM, UPPER EXTREMITY (WRVU 5) performed by Yimi Easton MD at [facility] MAIN OR ??? PRO REVISE MEDIAN N/CARPAL TUNNEL SURG Left 04/06/2018 MEDIAN NERVE DECOMPRESSION (CARPAL TUNNEL RELEASE) (WRVU 4.97) performed by Lida Peter MD [facility] MAIN OR ? ? PRO SPLIT GRFT TRUNK, ARM, LEG <100SQCM Left 04/26/2018 SPLIT THICK SKIN GRAFT,100 SQ CM OR LESS, ARMS (WRVU 9.9) performed by Silviano Sparks MD at [facility] MAIN OR ? ? PRO SPLIT GRFT, HEAD, FAC, HAND, FEET <100SQCM N/A 02/20/2016 SPLIT THICKNESS SKIN SPLIT GRAFT,100SQ CM OR LESS, NECK performed by Miguel Angel Moreno MD at [facility] MAIN OR ??? PRO SPLIT GRFT, TRUNK, ARM, LEG EA 100SQCM N/A 04/26/2018 EA.ADDITIONAL 100SQ.CM STSG (WRVU 1.72) performed by Silviano Sparks MD at [facility] MAIN OR ??? PRO UNLISTED PROCEDURE VASCULAR SURGERY Left 11/20/2015 LIGATION\REPAIR AV FISTULA performed by Camilo Ireland MD at [facility] MAIN OR ??? PRO UNLISTED PROCEDURE VASCULAR SURGERY Left 11/20/2015 EXCISION VEIN FROM HAND performed by Camilo Ireland MD at [facility] MAIN OR ??? PRO UPPER GI ENDOSCOPY, BIOPSY N/A 05/13/2017 EGD WITH BIOPSY (WRVU 2.49) performed by Aditya Barrera MD at [facility] ENDOSCOPY ??? US RENAL TRANSPLANT BIOPSY 12/31/2010 ??? US RENAL TRANSPLANT RIGHT Right 06/04/2018 US Renal Transplant Right 06/04/2018 [facility] RAD ULTRASOUND Medication History: No outpatient medications have been marked as taking for the 10/19/22 encounter (Hospital Encounter). Allergies: Allergies Allergen Reactions ??? Benazepril Hcl ??? Codeine Other (See Comments) Patient does not know reaction ??? Hydrochlorothiazide ??? Pollen Extracts Sneezing/runny nose Social History: Social History Socioeconomic History ??? Marital status: Single Spouse name: Not on file ??? Number of children: Not on file ??? Years of education: Not on file ??? Highest education level: Not on file Occupational History ??? 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 Smoking status: Former Packs/day: 0.25 Years: 1.50 Pack years: 0.38 Types: Cigarettes Quit date: 12/03/2000 Years since quittin.8 ??? Smokeless tobacco: Former Quit date: 04/14/2001 Vaping Use ??? Vaping Use: Never used Substance and Sexual Activity ??? Alcohol use: No ??? Drug use: No Types: Marijuana Comment: havent in ??? Sexual activity: Not on file Comment: Deferred Other Topics Concern ??? Not on file Social History Narrative ??? Not on file Social Determinants of Health Financial Resource Strain: Not on file Food Insecurity: Not on file Transportation Needs: Not on file Physical Activity: Not on file Housing Stability: Not on file Family History: Family History Problem Relation Age of Onset ??? Pancreatitis Father PHYSICAL EXAM: Vitals: Last value Range last 24 hrs Temperature Temp: 36.6 ??C (97.9 ??F) Temp: [36.4 ??C (97.5 ??F)-36.7 ??C (98.1 ??F)] Heart Rate Heart Rate: 59 Heart Rate: [59-69] Blood Pressure BP: 133/56 BP: (96-133)/(56-68) Respiratory Rate Resp: 16 Resp: [12-16] SpO2 SpO2: 96 % SpO2: [96 %-98 %] Wt Readings from Last 3 Encounters: 12/16/21 81.6 kg (180 lb) 09/29/21 86.2 kg (190 lb 0.6 oz) 06/06/21 86.2 kg (190 lb) Physical Exam: Gen: Appropriate and cooperative in NAD, AAOX3 HEENT: PERRLA, EOMI, Anicteric sclera, MMM, OP clear Neck: Supple with normal ROM, No cervical LAD appreciated. Tunneled line intact with some surrounding erythema; no tenderness to palpation or purulence. CV: RRR, S1 and S2 noted, no m/g/r appreciated Resp: CTAB with good air movement throughout, normal effort Abd: +normoactive BS, soft NTND, no HSM or masses appreciated Back: No CVA tenderness noted EXT: No cyanosis or edema, DP pulses 2+ and symmetric bilaterally Skin: No rashes, sores or ulcers noted on exposed skin Neuro: no focal deficits identified Labs: Recent Labs 10/19/221957 WBC 6.2 HGB 11.4* HCT 34.5* PLATELET 179 NEUTROABS 3.67 Recent Labs 10/19/221957 NA 144 K 4.9 CL 98 CO2 29 BUN 46* CREATININE 9.50* Recent Labs 10/19/221957 CALCIUM 9.1 MAGNESIUM 0.96 Recent Labs 10/19/221957 AST 16 ALT 10 ALKPHOS 122 BILITOT 0.5 No results for input(s): INR, PT, PTT in the last 72 hours. Microbiology: n/a Imaging Studies: No orders to display Assessment: Adama Ram is a 62 y.o. 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 Fortunately, Adama's hypotension has improved and stabilized and his potassium has normalized. Will continue to monitor potassium closely. Consulting Nephrology for dialysis, though no indication for urgent dialysis at the moment. If his potassium remains normal, imagine he can probably have dialysis on Wednesday as according to his normal schedule. Will continue home meds and supportive care in [place]. Gaining a better understanding of his recent decline and the workup that has been completed to date may be warranted. Plan: #hyperkalemia #ESRD #s/p kidney transplant - resolved; continue to monitor - s/p 1 dose Kayexalate - nephrology consult - continue prograf 2mg qAM, 1mg qPM - continue sevelamer 800 mg TID - continue Renavite #home meds - continue allopurinol 150 mg qHS for gout - continue aspirin 81 mg qd - continue Keppra 500 mg BID for seizure disorder - continue Levothyroxine 100 mcg qAM - continue Pantoprazole 20 mg qd # Routine - DVT ppx: heparin 5000 u q8h - GI ppx: home pantoprazole - Diet/Fluids: renal diet - Rehab: PT/OT consult - Access: tunneled line for dialysis exchanged by IR 10/14 - Code Status: DNR; okay for all pre-arrest care - Advanced Care Planning: per brother 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 He would not find his current physical limitations to be an acceptable quality of life and therefore would not want CPR, but would be okay with all pre-arrest care. - Dispo: pending clinical course Cammy Winters MD PGY-3, Internal Medicine 10/20/2022 Associated attestation - Jeana Beach MD - 10/20/2022 5:57 PM EDT Attending Attestation and Certification Please see Cammy Winters MD's note for details of the patient history of presentation and data. I have discussed, reviewed and agree with the documented History, Physical findings, Assessment and Plan of care. I have examined the patient myself and personally reviewed all studies. In addition, I certify thatI am a D-H credentialed attending provider with admitting privileges and that the patient meets or has met medical necessity to require an inpatient IPI level of care meeting a minimum of two midnights or is on the CMS inpatient only procedure list (status C) due to: monitoring of fluid status given an inability to regulate fluid balance and the need for administration or restriction of fluids and hyperkalemia with bradycardia and fall at home JEANA BEACH MD 10/20/2022 documented in this encounter Miscellaneous Notes * Care Management Discharge - Susanna Robertson RN - 10/21/2022 2:28 PM EDT CARE MANAGEMENT FINAL DISCHARGE NOTE Chart reviewed, care reviewed with primary team and at interdisciplinary rounds. Patient is medically ready for discharge to Assisted living facility with outpatient dialysis. Needs for Transition of Care: Plan for discharge is: Assisted Living Facility Outpatient Agency/Support Group Needs: None Agency Referrals & Follow-up Care: Resumption of care [facility] [address] [facility] [address] [facility] [address] [place] [address] P: [phone] F: [phone] Transportation: RCT- Confirmed transport for 1530 (nursing aware to have patient at east entrance by this time). Functional status prior to admission: Assistive Equipment and Assistive Person Home Environment: Others in the home: facility resident. Current Living Arrangements: residential facility. Accessibility Concerns:None indicated. Current Functional Ability: Assistive Person and Equipment DME used at home: cane - straight, wheelchair - manual, other (see comments) (depending on needs) DME Needed at Discharge: Patient's own walking poles Patient is insured through: Primary Insurance: MEDICARE Payor: MEDICARE / Plan: MEDICARE PART A & B / Product Type: *No Product type* / Secondary Insurance: MEDICAID [place] Prescription Coverage: Yes I have called [facility] to confirm HD chair and update on discharge plan. I have called Fannie at [facility] ([facility] to update on discharge time. [facility] requesting signed d/c summary to be sent with patient (nursing aware). Team updated on transport time. I have updated facility on discharge time. I have updated the facility ([facility]) on medication adjustments Per Facility ([facility]) request. Per MD Earl via secure chat- tacrolimus was decreased to 1 mg twice a day; Renavite will be added -facility will not be able to get Renavite until Wednesday10/23/22-( aware via secure chat); Losartan and carvedilol will be discontinued. Updated medication information was given to [facility] ([facility]) per facility request via phone conversation. This plan was formulated with input from patient, above facilities and team. All are in agreement with plan. I have verbally reviewed Medicare Discharge Rights with patient. Patient verbalizes understanding of right to appeal this discharge if feeling not medically ready. Offered a copy of this letter. Susanna Robertson RN, Pager-[phone] * Plan of Care - Crystal Isidro RN - 10/21/2022 1:16 AM EDT OUTCOME EVALUATION NOTE: OUTCOME SUMMARY: Pt remains free from falls/injuries this shift, bed in low position. No c/o pain at this time. Oriented to self & place. Sleeping between care. Call daniels maintained within reach at all times, pt encouraged to use in order to make needs known. Will continue to monitor. PLAN MOVING FORWARD: Continue to monitor HD DC planning INDIVIDUALIZED FALL PREVENTION INTERVENTIONS: Patient-specific fall risk factors per assessment: [current deficits]: Generalized weakness, IV sites Assistance [level of assistance required for transfers and ambulation]: 1A walker Supervision [direct monitoring required during toileting and ADLs]: Eyes on/hands on Surveillance [continuous indirect monitoring]: Room near unit station, purposeful rounding Patient-specific fall prevention interventions for sensory deficits provided, if applicable: NA CARE PLAN GOAL OUTCOME EVALUATION: * Plan of Care - Viki Marino RN - 10/20/2022 6:57 PM EDT OUTCOME EVALUATION NOTE: OUTCOME SUMMARY: Patient A&OX2, disoriented to time and situation. VSS on RA. Patient speaking illogically intermittently throughout shift. Double lumen tunneled central line red around the insertion site, team aware. STAT blood CX obtained with morning labs.Down to dialysis in am, 1.7L removed, patient returned to unit around 1300. CHG bath completed. Patient seen by PT/OT and nutrition. Telemetry remains in place with no acute changes. All medications administered. Safety maintained. PLAN MOVING FORWARD: HD, Monitor labs/electrolytes, dialysis, D/C planning INDIVIDUALIZED FALL PREVENTION INTERVENTIONS: Patient-specific fall risk factors per assessment: [current deficits]: Disorientation, generalized weakness, hospital environment Assistance [level of assistance required for transfers and ambulation]: 1 assist with a walker/ canes Supervision [direct monitoring required during toileting and ADLs]: Eyes on Surveillance [continuous indirect monitoring]: Masimo, bed alarm in use, call daniels within reach, purposeful rounding, room near nurse's station. * Initial Assessments - Karis Kunz RN - 10/20/2022 4:40 PM EDT Office of Care Management Initial Assessment Karis Kunz RN reviewed record and discussed patient with Care Team. Source of Information: Team, bedside nurse, medical record, and Patient, Adama. Karla Ramirez RNCM introduced self/reviewed role; services accepted. Reason for Hospitalization: Status post fall, Hyperkalemia Covid Vaccination Status: 1st & 2nd dose (Doesnt remember which one) Last COVID test: Lab Results Component Value Date [id number] Not Detected 05/22/2021 Past medical History: Past Medical History: Diagnosis Date ??? BP (high blood pressure) ??? DVT (deep venous thrombosis) ??? Gout ??? Hypertension ??? Kidney problem ??? Pneumonia ??? TBI (traumatic brain injury) 1980 Hospitalizations Within the Past 30 Days: no previous admission in last 30 days Current Decision-Making Capacity: Self (Brother helps if needed) If AD's have not been completed the following surrogate would be surrogate decision maker per [place] surrogate decision making law. (Only good for 180 days) Any patient receiving care in [place] must abide by [place] law. The hierarchy for surrogate decision making is: (a) Patient???s spouse, or civil union partner or common law spouse unless there is a divorce proceeding, separation agreement, or restraining order limiting that person???s relationship with the patient. (b) Any adult son or daughter of the patient. (c) Either parent of the patient. (d) Any adult brother or sister of the patient. (e) Any adult grandchild of the patient. (f) Any grandparent of the patient. (g) Any adult aunt, uncle, niece, or nephew of the patient. (h) A close friend of the patient. (i) The agent with financial power of blasting machine operator or a conservator appointed in accordance with RSA 464-A. (j) The guardian of the patient???s estate. Advance Care Planning: Do NOT Attempt CPR - Inpatient Received -Advanced Directive: Yes, on file Current Coping/Education/Information Needs: Patient understands plan of care and agrees with plan Current Functional Ability: Assistive Equipment and Assistive Person Functional Status Prior to Admission: Assistive Equipment and Assistive Person Prior ADLs & IADLs: Assistance Needed with ADLs & IADLs Cooking / Eating: Completely Dependent Cleaning: Needs Assistance with Cleaning Laundry: Needs Assistance Groceries: Grocery Delivery Service Medication Management: Dependent with Medication Management Bathing: Needs Assistance with Bathing Home Environment: Others in the home: facility resident. Current Living Arrangements: residential facility. Accessibility Concerns:None indicated. Resource / Environmental Concerns: Resource/Environmental Concerns: none Current DME: cane - straight, wheelchair - manual, other (see comments) (depending on needs) Home [address]: [address] [address] Social & Family Supports: All names listed below confirmed with patient as current and correct Extended Emergency Contact Information Primary Emergency Contact: Lucas Ram Address: [address] [place] [address] [place] [address] [facility] Mobile Relation: Sibling Secondary Emergency Contact: Yenifer Frausto Address: [address] [place] [address] Mobile Relation: Aunt/Uncle Current Care Provided by: self Provides Primary Care For: no one Caregiver if needed: other (see comments) Quality of Family relationships: supportive Community Resources being provided currently: none Behavioral Health History: None indicated Substance Use/Abuse: Social History Tobacco Use Smoking Status Former ??? Packs/day: 0.25 ??? Years: 1.50 ??? Pack years: 0.38 ??? Types: Cigarettes ??? Quit date: 12/03/2000 ??? Years since quittin.8 Smokeless Tobacco Former In the past year [...] points: Addiction likely Other Pertinent/Service Specific Information: Dialysis at [facility] per patient Health/Prescription Coverage: Primary Insurance: MEDICARE Payor: MEDICARE / Plan: MEDICARE PART A & B / Product Type: *No Product type* / Secondary Insurance: MEDICAID [place] ONLY if patient has Medicare A&B - Does this patient have secondary insurance?: Yes ; Prescription Coverage: Yes Preferred Pharmacy: [id number] - [facility], [place] - [address] [address] [facility] [address] [facility] - [place], [place] - [address] [facility] [place] [address] [place] Status: Patient is a : No Primary Care Provider: Carroll Fuentes DO [phone] Patient/Caregiver Goals of Treatment: Feel better and go home Potential Needs for Transition of Care: none Agency Referrals: 1) [address] [address] 2) [facility] [address] [place] [address] P: [phone] F: [phone] Transportation: no concerns Transportation Anticipated: family or friend will provide Concerns to be Addressed: discharge planning Assessment: Patient is admitted to Hospital Medicine service for Hyperkalemia Plan: A member of the Care Management team will continue to monitor progress, follow for continuity of care and assist with transition of care planning. Karis Kunz RN [facility] Jewelry Sales Associate/Medicine Office of Care Management Pager: [phone] * Consult Note - Steffi Moise RD - 10/20/2022 3:47 PM EDT Nutrition Consult Note Adama J Leanna is a 62 y.o. 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 ?? Reason for Assessment: Malnutrition Evaluation Nutrition Recommendations: Renal, 2g Na diet Post HD weights, will trend I was able to discuss plan with provider followed with team in IDRs. Current Nutrition Regimen: Active Orders Diet Renal diet 2 GM NA Frequency: Effective Now Number of Occurrences: Until Specified Assessment: Lab Results Component Value Date NA 142 10/20/2022 K 5.6 (H) 10/20/2022 CL 98 10/20/2022 CO2 31 10/20/2022 BUN 49 (H) 10/20/2022 CREATININE 9.82 (H) 10/20/2022 ESTGFR 6 (L) 10/20/2022 MAGNESIUM 0.88 10/20/2022 CALCIUM 8.5 10/20/2022 PHOS 3.5 10/20/2022 AST 16 10/19/2022 ALT 10 10/19/2022 ALKPHOS 122 10/19/2022 BILITOT 0.5 10/19/2022 No results found for: POCGLU Patient Lines/Drains/Airways Status Active Nutritional LDAs Name Placement date Placement time Site Days Tunneled Central Line - Double Lumen 09/30/22 1227 subclavian vein, left other (see comments) 09/30/22 1227 -- 20 Oxygen Therapy / Airway Device: None (Room air) Shift Pressure Injury Prevention Occiput: No Injury Thoracic Spine: No Injury Sacral: No Injury Ischial - left: No Injury Ischial - right: No Injury Heel - left: No Injury Heel - right: No Injury Elbow - left: No Injury Elbow - right: No Injury Device Sites: IV sites, O2 sat monitor, ECG Leads Other Sites: HD line Last Bowel Movement: 10/19/22 Intake/Output Summary (Last 24 hours) at 10/20/2022 1547 Last data filed at 10/20/2022 1311 Gross per 24 hour Intake 240 ml Output 1300 ml Net -1060 ml Relevant medications: protonix, pericolace, renvela, tania-julio Anthropometrics: Admit Weight: 69.76 kg Estimated body mass index is 20.95 kg/m?? as calculated from the following: Height as of this encounter: 182.5 cm (5' 11.85). Weight as of this encounter: 69.8 kg (153 lb 12.8 oz). [place] Body Weight (IBW) (kg): 80.5 Wt Readings from Last 10 Encounters: 10/20/22 69.8 kg (153 lb 12.8 oz) 12/16/21 81.6 kg (180 lb) 09/29/21 86.2 kg (190 lb 0.6 oz) 06/06/21 86.2 kg (190 lb) 05/23/21 84.6 kg (186 lb 8.2 oz) 05/02/21 95.3 kg (210 lb) 04/04/21 86.4 kg (190 lb 6.4 oz) 02/20/21 90.7 kg (200 lb) 12/29/18 90.7 kg (200 lb) 11/29/18 84.2 kg (185 lb 9.6 oz) Patient Vitals for the past 168 hrs: Weight 10/20/22 1311 69.8 kg (153 lb 12.8 oz) Estimated / Assessed Needs: Kcal / K - 2450 Kcal (25 Kcal/Kg - 35 Kcal/Kg) Estimated Protein Needs: 84 - 105 g (1.2 g/Kg - 1.5 g/Kg) Nutrition intake and intake history / interview: brief conversation with patient due to in HD most of day and then MD at bedside to assess shortly after my arrival. But Adama observed with 100% intakeat lunch, he was in great mood, quite please, reports good appetite and intakes and reports ongoinggood appetite and a stable weight. Noted he is confused and poor memory Though weight trends noted above. Nutrition Focused Physical Exam: Not performed Malnutrition Diagnosis: Not enough data to assess (Alex, JPEN J Parenteral Enteral Nutr. 2012 November; 36(3): 273-83) Nutrition to continue to follow up while inpatient THANKS Steffi Moise RD Pager #:[phone] * Consult Note - Didier Louis MD - 10/20/2022 7:37 AM EDT Images from the original note were not included. [facility] NEPHROLOGY/HYPERTENSION DIALYSIS CONSULT NOTE PATIENT: Adama Ram : 1960 Carroll Fuentes DO REASON FOR CONSULTATION: ESRD Management HPI: Adama Ram is a 62 yo male presenting as a transfer from [facility]. Presented there for hypotension to the 80s/50s, was found to have a potassium of 6.1, and was subsequently transferred here due to concern that he may need urgent dialysis and/or higher level of care. Patient normally dialyzes at the [facility]. He currently is dialyzed through a tunneled dialysis catheter. The patient's last dialysis he reports was last week. 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 Post-transplant course was complicated by delayed graft function, recurrent IgA, CNI toxicity, and most recently had a ruptured LUE AVF resulting in cardiac arrest in the setting of hemorrhagic shock. 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 Patient on evaluation today is doing well. No acute issues. He was seen during dialysis and is tolerating dialysis well. Currently undergoing home prescription dialysis. ROS: 4 point review of sytem was done, everything was negative except for what was mentioned above. INTAKE/OUTPUTS: Intake/Output Summary (Last 24 hours) at 10/21/2022 0538 Last data filed at 10/20/2022 1311 Gross per 24 hour Intake 240 ml Output 1300 ml Net -1060 ml MEDICATIONS: ??? tacrolimus 1 mg Oral BID ??? allopurinoL 150 mg Oral Nightly ??? aspirin EC 81 mg Oral Daily ??? levETIRAcetam 500 mg Oral BID ??? vitamin B Complex-vitamin C-folic Acid 1 tablet Oral Daily ??? pantoprazole EC 20 mg Oral Daily ??? sevelamer carbonate 800 mg Oral TID WC ??? levothyroxine 100 mcg Oral QAM ??? senna-docusate 2 tablet Oral BID ??? heparin (porcine) 5,000 Units Subcutaneous Q8H EDWARD Vasoactive/Sedating Meds: VITALS: Last value Range last 24 hrs Temperature Temp: 36.4 ??C (97.5 ??F) Temp: [36.4 ??C (97.5 ??F)-36.7 ??C (98 ??F)] Heart Rate Heart Rate: 56 Heart Rate: [56-63] Blood Pressure BP: 121/90 BP: (104-134)/(45-90) Respiratory Rate Resp: 18 Resp: [18-19] SpO2 SpO2: 94 % SpO2: [94 %-99 %] Ventilator: Mode Rate TV PEEP FiO2 Pplateau PHYSICAL EXAM: Patient is awake alert not in acute distress No jaundice oral mucosa moist Neck- supple trachea central Chest- bilateral air entry present clear to auscultation no wheeze no crepitation. Tunneled line intact with some surrounding erythema; no tenderness to palpation or purulence. CVS-S1-S2 present, no murmur regurgitation gallops. Abdomen-nontender nondistended, bowel sounds present. Extremities-peripheral pulses present, no edema Neuro-patient is awake alert, moving all 4 limbs, motor examination is grossly normal. No asterixis. STUDIES: LABS: CBC: Recent Labs 10/20/22 0905 10/19/221957 WBC 5.1 6.2 HGB 10.5* 11.4* PLATELET 166 179 Chemistry: Recent Labs 10/20/22 0910/19/221957 NA 142 144 K 5.6* 4.9 CL 98 98 CO2 31 29 BUN 49* 46* CREATININE 9.82* 9.50* GLUCOSE 116 101 Recent Labs 10/20/22 0910/19/221957 CALCIUM 8.5 9.1 MAGNESIUM 0.88 0.96 PHOS 3.5 -- ABG (Arterial Blood Gas) No results for input(s): PHART, LMQ1RHT, PO2ART, CBR3PZA, LACTATEVEN, ONB9ZCP, PFRATIOART2 in the last 168 hours. VBG (Venous Blood Gas) No results for input(s): PHVEN, CWQ9MFK, PO2VEN, XRN4LTH, LACTATEVEN in the last 168 hours. Mixed Venous Sat No results for input(s): C4OVGK7 in the last 168 hours. LFT's: Recent Labs 10/19/221957 BILITOT 0.5 ALBUMIN 4.0 ALKPHOS 122 ALT 10 AST 16 Prot/Cre Ratio Date Value Ref Range Status 07/19/2018 16.3 ratio Final No results found for: TPROTEINPEP, ALBELECT No results found for: MICROALBUR, [id number] Lab Results Component Value Date HA1C 5.4 11/29/2018 HA1C 5.5 05/12/2017 HA1C 4.8 11/26/2016 Lab Results Component Value Date PTH 52 11/29/2018 CALCIUM 8.5 10/20/2022 PHOS 3.5 10/20/2022 25-OH Vit D Total (ng/mL) Date Value Status 11/29/2018 49 Final MICROBIOLOGY: N/A IMAGING: N/A ASSESSMENT/IMPRESSIONS + PLAN: 1) ESRD on HD - Impressions: Seen on dialysis. Tolerating dialysis well. - Access: Tunneled HD catheter - Schedule: MWF as an outpatient. Next dialysis: today - Prescription for Next Dialysis: Duration:4 hours; Na:140; Bicarb:35; Temp:35; Dialyzer: F180; BFR: up to 450ml/min; DFR:1.5X BFR; UF:1-3kg; BVM: Profile: B - Anticoagulation: Heparin 8000U + catheter heparin - Additional Recs: - Obtain daily weights - Preserve veins in non-dominant arm - May need to give fluids if hypotensive during dialysis. 2) Hemodynamics - Impressions: BP stable - Pressures: Systolics between 100 - 110 - Recommendations / Therapies: - Monitor pressures for time being 3) Anemia / Hemoglobin - Impressions: Goal Hgb >10, Ferritin >100ng/dl, TIBC >20%. Can likely defer anemia to outpatient management given expected short duration of stay - Recommendations / Therapy: - Monitor Hgb. - Tania-Julio daily 4) Bone Mineral Health - Impressions: Can likely defer BMD studies to outpatient management given expected short duration of stay - Recommendations / Therapy: - Continue Renvela 800mg TID with meals - Tania-julio daily 5) Electrolytes - Impressions: Stable - Recommendations / Therapy: - Management with dialysis 6) Hx of renal graft - Impressions: OK to continue progra 1mg BID Thanks for letting us participate in the care of this patient. Didier Louis M.D., M.P.H., M.H.A. PGY-IV Nephrology-Hypertension Fellow Page # [phone] [facility] [address] [facility] [address] 2nd floor, Gaming Investigator [address] [place] [id number] Associated attestation - Crystal Mcdermott MD - 10/21/2022 8:52 AM EDT The patient was seen and examined with the nephrology fellow. Please see the nephrology fellow's note from today for details. I have reviewed the fellow's note and agree with the exam, and assessmentand plan. Patient seen and examined on dialysis. Clinical and laboratory data reviewed. Stable treatment. No issues with dialysis or access. Crystal Mcdermott MD Nephrology Pager: [phone] * Plan of Care - Katt Riley RN - 10/20/2022 1:56 AM EDT OUTCOME EVALUATION NOTE: OUTCOME SUMMARY: Pt. Transferred from [facility]. No orders when assumed care at 1900. MD came and sawpt and placed orders. STAT EKG, STAT labs, tele and others per order set. Pt is pleasant but impulsive. Disoriented at times. HD line found with no dressing except for a gauze. Charge notified. MD notified. MD to bedside to assess. Sterile dressing placed over line and waiting further instruction fr kavon JONES and team. Pt. Needs dialysis creat 9.5. Tele shows SB w/ occasional PVC's and PACs. QTC 0.41.Monitoring pt. Closely for changes. VSS on RA. Pt. Denies SOB, chest pain and N&T. BP to only be taken on LLE. Pts. L hand IV flushes incase of an emergency but not to be used otherwise. [id number]- paged for nursing communication where it is appropriate to draw routine labs from. [facility] for LE draw. Vascular called and said that they would be down to draw as soon as they could. PLAN MOVING FORWARD: Dialysis VS Renal diet RN placed dietary consult Nephrology consult IR consult for HD line INDIVIDUALIZED FALL PREVENTION INTERVENTIONS: Patient-specific fall risk factors per assessment: [current deficits]: deconditioning, comorbidity,past TBI, impulsiveness Assistance [level of assistance required for transfers and ambulation]: SB assist Supervision [direct monitoring required during toileting and ADLs]: SB assist, eyes on at all times Surveillance [continuous indirect monitoring]: does not ring appropriately, frequent room checks Patient-specific fall prevention interventions for sensory deficits provided, if applicable: [X] Yes non-slip socks when out of bed, bed alarm on at all times CARE PLAN GOAL OUTCOME EVALUATION: * Plan of Care - Viki Marino RN - 10/19/2022 6:07 PM EDT OUTCOME EVALUATION NOTE: OUTCOME SUMMARY: Patient transferred by ambulance from outside hospital. Report received. Patient alert and able to answer orientation questions. VSS on RA. Patient denies any pain or shortness of breath. Patient ambulating to the bathroom with canes, BMx1. Medicine team paged for admission orders. Patient resting documented in this encounter Plan of Treatment Not on file documented as of this encounter Procedures Procedure Name Priority Date/Time Associated Diagnosis Comments HEMOGRAM Routine 10/21/2022 7:47 AM EDT HC PHOSPHORUS, SERUM Routine 10/21/2022 7:47 AM EDT HC MAGNESIUM, SERUM Routine 10/21/2022 7 :47 AM EDT BASIC METABOLIC PANEL Routine 10/21/2022 7:47 AM EDT HC FK-506 (TACROLIMUS) Routine 11:22 AM EDT GREEN TUBE HOLD Routine 10/20/2022 10:53 AM EDT HC BLOOD CULTURE- STAT 10/20/2022 10: 53 AM EDT HC VITAMIN B12 SERUM Routine 10/20/2022 10:53 AM EDT HEMOGRAM Routine 10/20/2022 9:05 AM EDT PHOSPHORUS Routine 10/20/2022 9:05 AM EDT MAGNESIUM Routine 10/20/2022 9:05 AM EDT BASIC METABOLIC PANEL Routine 10/20/2022 9:05 AM EDT EKG 12-LEAD STAT 10/19/2022 8:05 PM EDT Hyperkalemia HC THYROID STIMULATING HORMONE, SERUM STAT 10/19/2022 7:58 PM EDT HEMOGRAM STAT 10/19/2022 7:58 PM EDT DIFFERENTIAL, AUTOMATED STAT 10/19/2022 7:58 PM EDT HC CBC,PLT & AUTO DIFF STAT 7:58 PM EDT HC MAGNESIUM, SERUM STAT 10/19/2022 7 :58 PM EDT COMPREHENSIVE METABOLIC PANEL STAT 10/19/2022 7:58 PM EDT documented in this encounter Results * (ABNORMAL) Hemogram (10/21/2022 7:47 AM EDT) White Blood Cell 5.8 4.0 - 9.5 x10(3)/mc L [facility] Red Blood Cell 3.72(L) 4.58 - 5.54 x10(6)/mc L [facility] Hemoglobin 12.1(L) 13.7 - 16.5 g/dL [facility] Hematocrit 36.2(L) 40.5 - 48.5 % [facility] Mean Cell Volume 97.3(H) 82.9 - 93.1 fL [facility] Mean Cell Hemoglobin 32.5(H) 27.5 - 32.1 pg [facility] Mean Cell Hemoglobin Concentration 33.4 32.0 - 35.7 g/dL [facility] Platelet 181 145 - 357 x10(3)/mc L [facility] RDW Standard Deviation 47.4(H) 36.0 - 45.0 fL [facility] RDW coefficient of variation 13.2 11.4 - 13.8 % [facility] Mean Platelet Volume 8.6 7.6 - 12.9 fL [facility] NRBC% auto 0.0 % [facility] NRBC Absolute 0.000 0.000 - 0.000 x10(3)/mc L [facility] Blood 10/21/2022 7:47 AM EDT 10/21/2022 7:50 AM EDT Narrative Resulting Agency Comment Spec In Lab Jasmyne Dawkins MD HEMATOLOGY ORDERABLE S Performing Organization Address City/State/[facility] Co de Phone Number [facility] [place] [address] * (ABNORMAL) Basic Metabolic Panel (non-fasting) (10/21/2022 7:47 AM EDT) Glucose 99 65 - 199 mg/dL [facility] Comment:Diabetes: >=200 mg/d L plus symptoms Blood Urea Nitrogen 29(H) 10 - 20 mg/dL [facility] Creatinine 6.68(H) 0.80 - 1.50 mg/dL [facility] Comment:result rechecked-imm Sodium 134(L) 135 - 145 mmol/L [facility] Potassium 4.8 3.5 - 5.0 mmol/L [facility] Comment: Please note: ??Patients with WBC >100,000 may have falsely elevated Potassium levels. ??For accurate Potassium quantification in these patients send serum separator tube (gold top) for subsequent determinations. ??Contact the Clinical Chemistry Laboratory if there are any questions. Chloride 94(L) 98 - 107 mmol/L [facility] Carbon Dioxide 26 22 - 31 mmol/L [facility] Anion Gap 14 5 - 15 mmol/L [facility] Calcium 8.7 8.5 - 10.5 mg/dL [facility] Est Glomerular Filtration Rate 9(L) >=60 mL/min/1. 73 m?? [facility] Comment: This patient's estimated GFR [...] and symptoms in addition to eGFR. Blood 10/21/2022 7:47 AM EDT 10/21/2022 7:51 AM EDT Narrative Resulting Agency Comment Spec In Lab Jasmyne Dawkins MD CHEMISTRY ORDERABLES Performing Organization Address [facility] Co de Phone Number [facility] [place] [address] * Magnesium (10/21/2022 7:47 AM EDT) Magnesium 0.79 0.69 - 1.07 mmol/L [facility] Blood 10/21/2022 7:47 AM EDT 10/21/2022 7:51 AM EDT Narrative Resulting Agency Comment Spec In Lab Jasmyne Dawkins MD CHEMISTRY ORDERABLES Performing Organization Address [facility] Co de Phone Number [facility] [place] [address] * Phosphorus (10/21/2022 7:47 AM EDT) Phosphorus 4.1 2.5 - 4.5 mg/dL [facility] Blood 10/21/2022 7:47 AM EDT 10/21/2022 7:51 AM EDT Narrative Resulting Agency Comment Spec In Lab Jasmyne Dawkins MD CHEMISTRY ORDERABLES Performing Organization Address [facility] Co de Phone Number [facility] [place] [address] * Tacrolimus level (10/20/2022 11:22 AM EDT) Pathologist [facility] Tacrolimus 6.1 ng/mL [facility] Comment: Trough therapeutic range is 3-15 ng/mL, depending upon transplant type, time since transplantation, use of other immunosuppressive drugs, comorbidities, and test method used. Tacrolimus concentration determined using the [employer] Tacrolimus electrochemiluminescence competitive immunoassay. Results from different samples types and methods are not interchangeable. Blood 10/20/2022 11:2 2 AM EDT 10/20/2022 11:30 AM EDT Narrative Resulting Agency Comment Spec In Lab Jeana Beach MD CHEMISTRY ORDERABLES Performing Organization Address City/[facility]/ZIP Co de Phone Number [facility] [place] [address] * Green Tube HOLD (10/20/2022 10:53 AM EDT) [facility] Green Hold Sample in lab. [facility] Blood Venous Draw / Unknown 10/20/2022 10:53 AM EDT 10/20/2022 11:04 AM EDT Kanu Earl MD CHEMISTRY ORDERABLES Performing Organization Address City/[facility]/ZIP Co de Phone Number [facility] [place] [address] * Blood culture (10/20/2022 10:53 AM EDT) [facility] Blood Culture No growth at 5 days. [facility] Blood 10/20/2022 10:5 3 AM EDT 10/20/2022 11:21 AM EDT Comment:Draw from peripheral IV......Draw From HD(central) Catheter Narrative Resulting Agency Comment Spec In Lab Jeana Beach MD MICROBIOLOGY - BLOOD ORDERABLES Performing Organization Address City/[facility]/ZIP Co de Phone Number [facility] [place] [address] * Vitamin B12 (10/20/2022 10:53 AM EDT) Vitamin B12 803 232 - 1,245 pg/mL [facility] Blood 10/20/2022 10:5 3 AM EDT 10/20/2022 11:03 AM EDT Narrative Resulting Agency Comment Spec In Lab Jeana Beach MD CHEMISTRY ORDERABLES Performing Organization Address City/[facility]/ZIP Co de Phone Number [facility] [place] [address] * (ABNORMAL) Hemogram (10/20/2022 9:05 AM EDT) Pathologist [facility] White Blood Cell 5.1 4.0 - 9.5 x10(3)/mc L [facility] Red Blood Cell 3.27(L) 4.58 - 5.54 x10(6)/mc L [facility] Hemoglobin 10.5(L) 13.7 - 16.5 g/dL [facility] Hematocrit 32.2(L) 40.5 - 48.5 % [facility] Mean Cell Volume 98.5(H) 82.9 - 93.1 fL [facility] Mean Cell Hemoglobin 32.1 27.5 - 32.1 pg [facility] Mean Cell Hemoglobin Concentration 32.6 32.0 - 35.7 g/dL [facility] Platelet 166 145 - 357 x10(3)/mc L [facility] RDW Standard Deviation 48.1(H) 36.0 - 45.0 fL [facility] RDW coefficient of variation 13.3 11.4 - 13.8 % [facility] Mean Platelet Volume 9.1 7.6 - 12.9 fL [facility] NRBC% auto 0.0 % [facility] NRBC Absolute 0.000 0.000 - 0.000 x10(3)/mc L [facility] Blood Venous Draw / Unknown 10/20/2022 9:05 AM EDT 10/20/2022 9:25 AM EDT Narrative Resulting Agency Comment Spec In Lab Cammy Winters MD HEMATOLOGY ORDERABLE S Performing Organization Address City/[facility]/ZIP Co de Phone Number [facility] [place] [address] * Phosphorus (10/20/2022 9:05 AM EDT) Phosphorus 3.5 2.5 - 4.5 mg/dL [facility] Blood Venous Draw / Unknown 10/20/2022 9:05 AM EDT 10/20/2022 9:21 AM EDT Narrative Resulting Agency Comment Spec In Lab Cammy Winters MD CHEMISTRY ORDERABLES Performing Organization Address City/[facility]/ZIP Co de Phone Number [facility] [place] [address] * Magnesium (10/20/2022 9:05 AM EDT) Magnesium 0.88 0.69 - 1.07 mmol/L [facility] Blood Venous Draw / Unknown 10/20/2022 9:05 AM EDT 10/20/2022 9:21 AM EDT Narrative Resulting Agency Comment Spec In Lab Cammy Winters MD CHEMISTRY ORDERABLES Performing Organization Address [facility] Co de Phone Number [facility] [place] [address] * (ABNORMAL) Basic Metabolic Panel (non-fasting) (10/20/2022 9:05 AM EDT) Glucose 116 65 - 199 mg/dL [facility] Comment:Diabetes: >=200 mg/d L plus symptoms Blood Urea Nitrogen 49(H) 10 - 20 mg/dL [facility] Creatinine 9.82(H) 0.80 - 1.50 mg/dL [facility] Sodium 142 135 - 145 mmol/L [facility] Potassium 5.6(H) 3.5 - 5.0 mmol/L [facility] Comment: Please note: ??Patients with WBC >100,000 may have falsely elevated Potassium levels. ??For accurate Potassium quantification in these patients send serum separator tube (gold top) for subsequent determinations. ??Contact the Clinical Chemistry Laboratory if there are any questions. Chloride 98 98 - 107 mmol/L [facility] Carbon Dioxide 31 22 - 31 mmol/L [facility] Anion Gap 13 5 - 15 mmol/L [facility] Calcium 8.5 8.5 - 10.5 mg/dL [facility] Est Glomerular Filtration Rate 6(L) >=60 mL/min/1. 73 m?? [facility] Comment: This patient's estimated GFR [...] and symptoms in addition to eGFR. Blood 10/20/2022 9:05 AM EDT 10/20/2022 9:21 AM EDT Narrative Resulting Agency Comment Spec In Lab Jasmyne Dawkins MD CHEMISTRY ORDERABLES Performing Organization Address [facility] Co de Phone Number [facility] [place] [address] * EKG 12 Lead (10/19/2022 8:05 PM EDT) Ventricular rate 57 BPM MUSE SYSTEM Atrial Rate 57 BPM MUSE SYSTEM P-R Interval 160 ms MUSE SYSTEM QRS Duration 80 ms MUSE SYSTEM Q-T Interval 438 ms MUSE SYSTEM QTC Calculated (Bezet) 426 ms MUSE SYSTEM Calculated P Matthews 66 degrees MUSE SYSTEM Calculated R Matthews 41 degrees MUSE SYSTEM Calculated T Matthews 61 degrees MUSE SYSTEM INTERPRETATION Sinus bradycardia Low voltage QRS Borderline ECG When compared with ECG of 29-SEP-2021 18:31, No significant change was found Confirmed by DMITRY, ??GREGORIO JONES ([id number]) on 10/21/2022 5:50:36 AM MUSE SYSTEM 10/19/2022 8:05 PM EDT 10/21/2022 5:50 AM EDT Jasmyne Dawkins MD ECG ORDERABLES Performing Organization Address City/[facility] Co de Phone Number MUSE SYSTEM * Differential, Automated (10/19/2022 7:58 PM EDT) Neutrophil % 59.6 % [facility] Neutrophil Absolute 3.67 1.70 - 6.10 x10(3)/[facility] Lymph % 26.9 % [facility] Lymphocytes Abs 1.7 0.9 - 3.2 x10(3)/[facility] Monocyte % 9.3 % [facility] Monocyte Abs 0.6 0.3 - 0.9 x10(3)/[facility] Eos % 3.2 % [facility] Eosinophils Abs 0.2 0.0 - 0.4 x10(3)/[facility] Basophil % 0.8 % [facility] Baso Absolute 0.0 0.0 - 0.1 x10(3)/[facility] Immature Gran % 0.20 % [facility] Comment: Immature granulocytes(IG's)percentage and absolute count will include metamyelocytes, myelocytes, and promyelocytes. Blood smears from CBCs yielding IG's will be scanned manually for concordance. If this scan disagrees with the automated IG or if promyelocytes are noted, a manual differential will be performed. Immature Gran Absolute 0.01 0.00 - 0.04 x10(3)/[facility] Blood 10/19/2022 7:58 PM EDT 10/19/2022 8:08 PM EDT Narrative Resulting Agency Comment Spec In Lab Cammy Winters MD HEMATOLOGY ORDERABLE S [facility] [place] [address] * (ABNORMAL) Hemogram (10/19/2022 7:58 PM EDT) White Blood Cell 6.2 4.0 - 9.5 x10(3)/mc L [facility] Red Blood Cell 3.53(L) 4.58 - 5.54 x10(6)/mc L [facility] Hemoglobin 11.4(L) 13.7 - 16.5 g/dL [facility] Hematocrit 34.5(L) 40.5 - 48.5 % [facility] Mean Cell Volume 97.7(H) 82.9 - 93.1 fL [facility] Mean Cell Hemoglobin 32.3(H) 27.5 - 32.1 pg [facility] Mean Cell Hemoglobin Concentration 33.0 32.0 - 35.7 g/dL [facility] Platelet 179 145 - 357 x10(3)/mc L [facility] RDW Standard Deviation 48.8(H) 36.0 - 45.0 fL [facility] RDW coefficient of variation 13.6 11.4 - 13.8 % [facility] Mean Platelet Volume 9.0 7.6 - 12.9 fL [facility] NRBC% auto 0.0 % [facility] NRBC Absolute 0.000 0.000 - 0.000 x10(3)/mc L [facility] Blood 10/19/2022 7:58 PM EDT 10/19/2022 8:08 PM EDT Narrative Resulting Agency Comment Spec In Lab Cammy Winters MD HEMATOLOGY ORDERABLE S Performing Organization Address City/[facility] Co de Phone Number [facility] [place] [address] * TSH [place] (10/19/2022 7:58 PM EDT) Thyroid Stimulating Hormone 1.45 0.27 - 4.20 mcIU/mL [facility] Comment: Reference Interval (mcIU/mL): Females: ??First Trimester: 0.23-3.88 ??Second Trimester: 0.22-3.90 ??Third Trimester: 0.44-4.66 Blood 10/19/2022 7:58 PM EDT 10/19/2022 8:08 PM EDT Narrative Resulting Agency Comment Spec In Lab Jasmyne Dawkins MD CHEMISTRY ORDERABLES [facility] [place] [address] * Magnesium (10/19/2022 7:58 PM EDT) Magnesium 0.96 0.69 - 1.07 mmol/L [facility] Blood 10/19/2022 7:58 PM EDT 10/19/2022 8:08 PM EDT Narrative Resulting Agency Comment Spec In Lab Jasmyne Dawkins MD CHEMISTRY ORDERABLES [facility] [place] [address] * (ABNORMAL) Comprehensive metabolic panel (non-fasting) (10/19/2022 7:58 PM EDT) Glucose 101 65 - 199 mg/dL [facility] Comment:Diabetes: >=200 mg/d L plus symptoms Blood Urea Nitrogen 46(H) 10 - 20 mg/dL [facility] Creatinine 9.50(H) 0.80 - 1.50 mg/dL [facility] Sodium 144 135 - 145 mmol/L [facility] Potassium 4.9 3.5 - 5.0 mmol/L [facility] Comment: Please note: ??Patients with WBC >100,000 may have falsely elevated Potassium levels. ??For accurate Potassium quantification in these patients send serum separator tube (gold top) for subsequent determinations. ??Contact the Clinical Chemistry Laboratory if there are any questions. Chloride 98 98 - 107 mmol/L [facility] Carbon Dioxide 29 22 - 31 mmol/L [facility] Anion Gap 17(H) 5 - 15 mmol/L [facility] Calcium 9.1 8.5 - 10.5 mg/dL [facility] Protein, Total 6.7 6.1 - 8.0 g/dL [facility] Albumin 4.0 3.2 - 5.2 g/dL [facility] Aspartate Aminotransferase 16 0 - 39 unit/L [facility] Alanine Aminotransferase 10 0 - 55 unit/L [facility] Alkaline Phosphatase 122 40 - 130 unit/L [facility] Bilirubin, Total 0.5 0.2 - 1.3 mg/dL [facility] Est Glomerular Filtration Rate 6(L) >=60 mL/min/1. 73 m?? [facility] Comment: This patient's estimated GFR [...] and symptoms in addition to eGFR. Blood 10/19/2022 7:58 PM EDT 10/19/2022 8:08 PM EDT Narrative Resulting Agency Comment Spec In Lab Jasmyne Dawkins MD CHEMISTRY ORDERABLES [facility] [place] [address] documented in this encounter Visit Diagnoses Diagnosis Hyperkalemia- Primary Hyperpotassemia Hyperkalemia Hyperpotassemia ESRD (end stage renal disease) on dialysis End stage renal disease documented in this encounter Admitting Diagnoses Diagnosis Hyperkalemia Hyperpotassemia documented in this encounter Administered Medications Inactive Administered Medications - up to 3 most recent administrations Medication Order MAR Action Action Date Dose Rate Site allopurinoL (Zyloprim) tablet 150 mg 150 mg, Oral, NIGHTLY, First dose on Wed10/19/22 at 2100, Until Discontinued, Routine Given 10/20/2022 8:07 PM EDT 150 mg Given 10/19/2022 8:44 PM EDT 150 mg aspirin EC tablet 81 mg 81 mg, Oral, DAILY, First dose on Wed10/20/22 at 0900, Until Discontinued, Routine Given 10/21/2022 8:44 AM EDT 81 mg Given 10/20/2022 1:50 PM EDT 81 mg heparin (porcine) (1,000 units/mL) injection 1,000-10,000 Units 1,000-10,000 Units, Intercatheter, ONCE IN DIALYSIS PRN, 1 dose, Starting on Wed10/20/22 at 0746, Until Wed10/20/22 at 1317, Line Care, Per Protocol, Catheter lock use catheter specified fill volume per dialysis protocol. For use in Dialysis only. Procedure ID: 660 (Hemodialysis CVAD Procedure - Care and Maintenance) in Clinical Policies., Dialysis (Intra-Procedure), Routine Given 10/20/2022 1:17 PM EDT 4,300 Un its heparin (porcine) (1,000 units/mL) injection 8,000 Units 8,000 Units, Intravenous, ONCE IN DIALYSIS, 1 dose, On Wed10/20/22 at 0845, For use in Dialysis only., Dialysis (Intra-Procedure), Routine Given 10/20/2022 9:00 AM EDT 8,000 Un its heparin (porcine) (5,000 units/1 mL) subcutaneous injection 5,000 Units 5,000 Units, Subcutaneous, EVERY 8 HOURS SCHEDULED, First dose on Wed10/19/22 at 2200, Until Discontinued, Routine Given 10/21/2022 6:21 AM EDT 5,000 Unit s Given 10/20/2022 10:25 PM EDT 5,000 Units Given 10/20/2022 1:51 PM EDT 5,000 Units levETIRAcetam (Keppra) tablet 500 mg 500 mg, Oral, 2 TIMES DAILY, First dose on Wed10/19/22 at 2100, Until Discontinued, Routine Given 10/21/2022 8:43 AM EDT 500 mg Given 10/20/2022 8:07 PM EDT 500 mg Given 10/20/2022 1:50 PM EDT 500 mg levothyroxine (Synthroid) tablet 100 mcg 100 mcg, Oral, EVERY MORNING, First dose on Wed10/20/22 at 0600, Until Discontinued, Routine Given 10/21/2022 6:21 AM EDT 100 mcg Given 10/20/2022 6:34 AM EDT 100 mcg pantoprazole EC (Protonix) tablet 20 mg 20 mg, Oral, DAILY, First dose on Wed10/20/22 at 0900, Until Discontinued, DO NOT CRUSH OR OPEN Given 10/21/2022 8:44 AM EDT 20 mg Given 10/20/2022 1:49 PM EDT 20 mg senna-docusate (Pericolace) 8.6-50 mg per tablet 2 tablet 2 tablet, Oral, 2 TIMES DAILY, First dose on Wed10/19/22 at 2100, Until Discontinued, Routine Given 10/21/2022 8:43 AM EDT 2 tablets Given 10/20/2022 8:07 PM EDT 2 tablets Given 10/20/2022 1:49 PM EDT 2 tablets sevelamer carbonate (Renvela) tablet 800 mg 800 mg, Oral, 3 TIMES DAILY WITH MEALS, First dose on Wed10/20/22 at 0800, Until Discontinued, DO NOT CRUSH OR OPEN, Routine Given 10/21/2022 12:10 PM EDT 800 mg Given 10/21/2022 8:43 AM EDT 800 mg Given 10/20/2022 4:56 PM EDT 800 mg sodium chloride 0.9% infusion 100 mL, Intravenous, EVERY 15 MIN PRN, Starting on Wed10/20/22 at 0746, Until Wed10/21/22 at 1727, If administration of NS boluses will result in positive fluid balance at end of treatment, contact MD., Dialysis (Intra-Procedure) tacrolimus (Prograf) capsule 1 mg 1 mg, Oral, NIGHTLY, First dose on Wed10/19/22 at 2100, Until Discontinued, DO NOT SPLIT, CRUSH OR OPEN, Routine Given 10/19/2022 8:44 PM EDT 1 mg tacrolimus (Prograf) capsule 1 mg 1 mg, Oral, 2 TIMES DAILY, First dose on Wed10/20/22 at 2100, Until Discontinued, DO NOT SPLIT, CRUSH OR OPEN, Routine Given 10/21/2022 8:43 AM EDT 1 mg Given 10/20/2022 8:07 PM EDT 1 mg vitamin B Complex-vitamin C-folic Acid (Tania-julio) 0.8 mg per tablet 1 tablet 1 tablet, Oral, DAILY, First dose on Wed10/20/22 at 0900, Until Discontinued, Routine Given 10/21/2022 8:43 AM EDT 1 tablet Given 10/20/2022 1:49 PM EDT 1 tablet documented in this encounter Active and Recently Administered Medications Times are shown in EDT. Scheduled Medication Order 10/19/2022 10/20/2022 10/21/2022 allopurinoL (Zyloprim) tablet 150 mg 150 mg, Oral, NIGHTLY, First dose on Wed10/19/22 at 2100, Until Discontinued, Routine 2043 (Given - Provider: Katt Riley RN) 2006 (Given - Provider: Crystal Isidro RN) aspirin EC tablet 81 mg 81 mg, Oral, DAILY, First dose on Wed10/20/22 at 0900, Until Discontinued, Routine 1350 (Given - Provider: Viki Marino RN) 0844 (Given - Provider: Latonia Oshea, SAVANNA) heparin (porcine) (1,000 units/mL) injection 8,000 Units (COMPLETED) 8,000 Units, Intravenous, ONCE IN DIALYSIS, 1 dose, On Wed10/20/22 at 0845, For use in Dialysis only., Dialysis (Intra-Procedure), Routine 0900 (Given - Provider: Junito Han RN) heparin (porcine) (5,000 units/1 mL) subcutaneous injection 5,000 Units 5,000 Units, Subcutaneous, EVERY 8 HOURS SCHEDULED, First dose on Wed10/19/22 at 2200, Until Discontinued, Routine 2146 (Given - Provider: Katt Riley RN) 0634 (Given - Provider: Katt Riley RN)1351 (Given - Provider: Viki Marino RN)2225 (Given - Provider: Crystal Isidro RN) 0621 (Given - Provider: Crystal Isidro, SAVANNA)1400 (Not Given - Provider: Latonia Oshea RN - Reason: Patient/family refused) levETIRAcetam (Keppra) tablet 500 mg 500 mg, Oral, 2 TIMES DAILY, First dose on Wed10/19/22 at 2100, Until Discontinued, Routine 2043 (Given - Provider: Katt Riley RN) 1350 (Given - Provider: Viki Marino RN)2007 (Given - Provider: Crystal Isidro RN) 0843 (Given - Provider: Latonia Oshea, SAVANNA) levothyroxine (Synthroid) tablet 100 mcg 100 mcg, Oral, EVERY MORNING, First dose on Wed10/20/22 at 0600, Until Discontinued, Routine 0634 (Given - Provider: Katt Riley RN) 0621 (Given - Provider: Crystal Isidro, SAVANNA) pantoprazole EC (Protonix) tablet 20 mg 20 mg, Oral, DAILY, First dose on Wed10/20/22 at 0900, Until Discontinued, DO NOT CRUSH OR OPEN 1349 (Given - Provider: Viki Marino RN) 0844 (Given - Provider: Latonia Oshea, SAVANNA) senna-docusate (Pericolace) 8.6-50 mg per tablet 2 tablet 2 tablet, Oral, 2 TIMES DAILY, First dose on Wed10/19/22 at 2100, Until Discontinued, Routine 2042 (Given - Provider: Katt Riley RN) 1349 (Given - Provider: Viki Marino RN)2006 (Given - Provider: Crystal Isidro RN) 0843 (Given - Provider: Latonia Oshea, SAVANNA) sevelamer carbonate (Renvela) tablet 800 mg 800 mg, Oral, 3 TIMES DAILY WITH MEALS, First dose on Wed10/20/22 at 0800, Until Discontinued, DO NOT CRUSH OR OPEN, Routine 0800 (Not Given - Provider: Viki Marino RN - Reason: Transfer to a Procedural area)1349 (Given - Provider: Viki Marino RN)1656 (Given - Provider: Viki Marino RN) 0843 (Given - Provider: Latonia Oshea, SAVANNA)1210 (Given - Provider: Latonia Oshea RN) tacrolimus (Prograf) capsule 1 mg (CANCELED)(Linked Group 1) 1 mg, Oral, NIGHTLY, First dose on Wed10/19/22 at 2100, Until Discontinued, DO NOT SPLIT, CRUSH OR OPEN, Routine 2043 (Given - Provider: Katt Riley RN) tacrolimus (Prograf) capsule 1 mg 1 mg, Oral, 2 TIMES DAILY, First dose on Wed10/20/22 at 2100, Until Discontinued, DO NOT SPLIT, CRUSH OR OPEN, Routine 2006 (Given - Provider: Crystal Isidro RN) 0843 (Given - Provider: Latoina Oshea RN) vitamin B Complex-vitamin C-folic Acid (Tania-julio) 0.8 mg per tablet 1 tablet 1 tablet, Oral, DAILY, First dose on Wed10/20/22 at 0900, Until Discontinued, Routine 1349 (Given - Provider: Viki Marino RN) 0843 (Given - Provider: Latonia Oshea RN) PRN Medication Order 10/19/2022 10/20/2022 10/21/2022 acetaminophen (Tylenol) tablet 650 mg 650 mg, Oral, EVERY 6 HOURS PRN, Starting on Wed10/19/22 at 1948, Until Wed10/21/22 at 1727, Pain, Maximum dose of acetaminophen is 4,000 mg from all sources in 24 hours. When ordered for pain, acetaminophen should be given even when other ordered pain medications are indicated. , Routine heparin (porcine) (1,000 units/mL) injection 1,000-10,000 Units (COMPLETED) 1,000-10,000 Units, Intercatheter, ONCE IN DIALYSIS PRN, 1 dose, Starting on Wed10/20/22 at 0746, Until Wed10/20/22 at 1317, Line Care, Per Protocol, Catheter lock use catheter specified fill volume per dialysis protocol. For use in Dialysis only. Procedure ID: 660 (Hemodialysis CVAD Procedure - Care and Maintenance) in Clinical Policies., Dialysis (Intra-Procedure), Routine 1317 (Given - Provider: Ronni Han RN) sodium chloride 0.9% infusion 100 mL, Intravenous, EVERY 15 MIN PRN, Starting on Wed10/20/22 at 0746, Until Wed10/21/22 at 1727, If administration of NS boluses will result in positive fluid balance at end of treatment, contact MD., Dialysis (Intra-Procedure) Linked Groups Order Group 1: tacrolimus (Prograf) capsule 2 mg (CANCELED) 2 mg, Oral, DAILY, First dose on Wed10/20/22 at 0900, Until Discontinued, DO NOT SPLIT, CRUSH OR OPEN, Routine And tacrolimus (Prograf) capsule 1 mg (CANCELED)Jump to med 1 mg, Oral, NIGHTLY, First dose on Wed10/19/22 at 2100, Until Discontinued, DO NOT SPLIT, CRUSH OR OPEN, Routine documented in this encounter Care Teams Set Staff Fitter Relationship Specialty Start Date End Date Ileana Azevedo APRN [address] [place] [address] PCP - General Family Medicine 10/21/22 documented as of this encounter
--- OUTSIDE RECORDS SUMMARY | 2024-04-22 10:51 | XMS_ITS ---
Author Name Heath Soloriocy Address [address] [place] [id number] Phone [phone] Organization [facility], NA DOCUMENT DISCLAIMER Multiple document versions may exist, please be sure you review the latest version. The information in the [facility] Progress Note Document represents a providers documented clinical note containing certain health and medical information. It may not contain the complete medical history for the patient and should be independently verified. The represented time in the document is Eastern Time PROVIDER ROUNDING NOTE BASIC Patient:?CHRISTY?ARNOL,?1960,?63y,?M Dialysis?Location:?[place] Attending?Vacuum Frame Operator:?Crystal?Baldemar Service?Date:?09/15/2023 Service?Provider:?Luna?Lyndsey,?VETERINARIAN ASSISTANT I?met?face?to?face?with?the?patient?today. OVERVIEW The?patient?presented?with?ESRD?on?dialysis Primary?cause?of?renal?failure:?Unspecified?complication?of?kidney?transplant Comments:?09/15/23?-?Recent?admission?for?confusion?and??&#160 ;seizure?activity.?Pts?mental?status?back?at?baseline?today. ?No?further?seizure?activity?reported.?Stable?dialysis.?No [...] ??EDW:?69.5 ??Duration:?3:45 ??Calcium:?2.5 ??Bicarb:?35 ??Rx?updated?on:?08/11/2023 TREATMENT?ASSESSMENT BP?Stand?Pre ??09/10/2023:?94/62 ??09/08/2023:?106/73 ??09/06/2023:?104/66 BP?Sit?Pre ??09/10/2023:?103/46 ??09/08/2023:?106/78 ??09/06/2023:?108/78 BP?Stand?Post ??09/10/2023:?100/74 ??09/08/2023:?115/75 ??09/06/2023:?125/106 BP?Sit?Post ??09/10/2023:?127/76 ??09/08/2023:?142/95 ??09/06/2023:?114/84 Tx?Duration ??09/10/2023:?3:57 ??09/08/2023:?3:53 ??09/06/2023:?3:44 Missed?Treatments 0?-?last?30?days 0?-?last?60?days FLUID?ASSESSMENT EDW?(kg) ??09/10/2023:?69.5 ??09/08/2023:?69.5 ??09/06/2023:?69.5 Weight?Pre?(kg) ??09/10/2023:?71.7 ??09/08/2023:?72.3 ??09/06/2023:?73.3 Weight?Post?(kg) ??09/10/2023:?69.6 ??09/08/2023:?69.5 ??09/06/2023:?70.1 PWV?(kg) ??09/10/2023:?0.1 ??09/08/2023:?0.0 ??09/06/2023:?0.6 UF?Rate?(mL/kg/hr) ??09/10/2023:?7.6 ??09/08/2023:?10.4 ??09/06/2023:?12.2 ADEQUACY?ASSESSMENT spKt/V,?URR ??08/16/2023:?1.83,?79.0 ??07/14/2023:?1.92,?78.0 ??06/14/2023:?1.69,?75.0 ACCESS?ASSESSMENT ??Access?Type:?CVCatheter ??Access?SubType:?Tunneled ??Access?Status:?Active?(In?Use)?-?12/01/2021 ??Access?Location:?Chest ??Placed:?09/29/2021 ANEMIA?ASSESSMENT HGB ??09/06/2023:?12.3 ??08/30/2023:?13.5 ??08/23/2023:?12.7 ?? Ferritin ??08/16/2023:?1123.0 ??07/14/2023:?993.0 ??06/14/2023:?927.0 Iron?Sucrose?(Venofer)?(mg) ??07/02/2023:?100 ??06/30/2023:?100 ??06/28/2023:?100 BMM?ASSESSMENT Phosphorus,?Calcium ??09/06/2023:?4.2,?8.9 ??08/30/2023:?4.6,?9.2 ??08/23/2023:?4.2,?9.0 ?? PTH,?Intact ??08/16/2023:?882.0 ??07/14/2023:?892.0 ??06/14/2023:?1063.0 Vitamin?D?(Calcitriol)?Oral?(mcg) ??09/10/2023:?0.50 ??09/08/2023:?0.50 ??09/06/2023:?0.50 NUTRITION?ASSESSMENT Potassium ??09/06/2023:?5.8 ??08/30/2023:?5.4 ??08/23/2023:?5.5 ?? eNPCR ??08/16/2023:?1.01 ??07/14/2023:?1.19 ??06/14/2023:?0.83 DIAGNOSIS Chief?Complaint:?N18.6?End?stage?renal?disease Patient?data?updated?09/15/2023?at?12:43?PM Signed?By:?Lyndsey,?Luna,?VETERINARIAN ASSISTANT??on?09/15/2023?12:44:08 PM END OF DOCUMENT
--- OUTSIDE RECORDS SUMMARY | 2024-04-22 10:51 | XMS_ITS | Encounter Summary ---
Author Organization [facility] [place] [address] Care Team Providers Care Outside Repairer Special Name Role Phone Ileana Azevedo APRN Primary Care Provider [phone] Encounter Details Date Type Department Care Team (Late st Contact Info) Description 12/23/2022 External Results Neph[place] [address] Lalitha Mcfarlane, ARTISTIC ASSOCIATE Social History Tobacco Use Types Packs/Day Years Used Date Smoking Tobacco: Former Cigarettes 0.3 1.5 1 08/05/1998 - 12/03/2000 Smokeless Tobacco: Former Quit: 04/14/2001 Alcohol Use Standard Drinks/Week Comments No 0 (1 standard drink = 0.6 oz pur e alcohol) [facility] Inpatient Questions Answer Date Recorded Does Anyone [...] Procedure Name Priority Date/Time Associated Diagnosis Comments URIC ACID Routine 12/19/2022 documented in this encounter Results * Uric acid (12/19/2022) Uric Acid 3.8 Blood 12/19/2022 Historical Provider CHEMISTRY ORDERAB LES documented in this encounter Visit Diagnoses Not on filedocumented in this encounter Care Teams Outside Repairer Special Relationship Specialty Start Date End Date Ileana Azevedo APRN [address] [place] [address] PCP - General Family Medicine 10/21/22 documented as of this encounter
--- OUTSIDE RECORDS SUMMARY | 2024-04-22 10:52 | XMS_ITS | Encounter Summary ---
Author Organization [facility] [place] [address] Care Team Providers Care [employer] Name Role Phone AlfredoCarroll allison Primary Care Provider [phone] Reason for Referral * Diagnostic Test (Routine) - Closed Specialty Diagnoses / Procedures Referred By Shashi ko Referred To Contact Radiology Diagnoses ESRD (end stage renal disease) Procedures IR Dialysis Access - AV Fistula Evaluations Luna Solorio STITCH BONDING MACHINE OPERATOR [facility] [place] [address] [place] [address] Referral ID Status Reason Start Date Expiration Date V isits Requested Visits Authorized [id number] Closed Specialty Service Requested 10/24/2021 04/25/2023 1 1 Encounter Details Date Type Department Care Team (Late st Contact Info) Description 10/24/2021 Orders Only Neph[place] [address] Luna Solorio APRN [facility] [place] [place] [address] ESRD (end stage renal disease) Social History Tobacco Use Types Packs/Day Years [...] on file documented as of this encounter Results * IR Dialysis Access - AV Fistula Evaluations (11/05/2021 4:18 PM EDT) Anatomical Region Laterality Modality Abdomen X-Ray Angiograph y Impressions 11/08/2021 6:05 PM EDT 1. ??Thrombosed RIGHT thigh arteriovenous dialysis graft. 2. ??Successful declot of thrombosed RIGHT thigh AVG with placement of venous outflow stent graft. Flows remained slow through the graft at the termination of the procedure secondary to resistant artery graft anastomotic stenosis. Plan: May return to hemodialysis via a RIGHT thigh graft however may require surgical revision of the artery graft anastomosis if there is recurrent thrombosis. Tunneled hemodialysis catheter should remain in place until regular dialysis or surgical revision. PROCEDURE SUMMARY: - Access of dialysis graft with ultrasound guidance - Dialysis graft declot - Additional procedure(s): Stent placement in graft and/or outflow veins PROCEDURE DETAILS: Pre-procedure Consent: Informed consent for the procedure including risks, benefits and alternatives was obtained and time-out was performed prior to the procedure. Preparation: The site was prepared and draped using maximal sterile barrier technique including cutaneous antisepsis. Anesthesia/sedation Level of anesthesia/sedation: Other-IV fentanyl and subcutaneous lidocaine administered for pain. Anesthesia/sedation administered by: Independent trained observer under attending supervision with continuous monitoring of the patients level of consciousness and physiologic status Total intra-service sedation time (minutes): Not applicable Initial dialysis graft evaluation Dialysis graft side: Right Dialysis graft type: Femoral loop graft Initial graft palpation: No pulse, no thrill Access Local anesthesia was administered. The dialysis graft was accessed and a 7 Frisian sheath was placed. Access technique: Micropuncture set with 21 gauge needle Access direction: Toward venous anastomosis Second access Local anesthesia was administered. The dialysis graft was accessed in a second location and a 6 Frisian sheath was placed. Access technique: Micropuncture set with 21 gauge needle Access direction: Toward arterial anastomosis Intra-procedural thrombolytic injection Thrombolytic was injected within the thrombosed segment of the graft. Thrombolytic agent: tPA Thrombolytic dose: 1 mg Mechanical or aspiration thrombectomy Thrombectomy of the graft and outflow venous segments was performed. Thrombectomy device: Clot maceration and displacement with [place] balloon and Vel catheter Pulling of arterial plug The arterial plug was pulled using Vel balloon tip catheter. Angiography Catheter position: RIGHT superficial femoral artery. Findings: Moderate to severe stenosis of the artery graft anastomosis. Persistent moderate 5 cm long segment in the venous outflow tract extending from the distal previously placed stent to the confluence with the common femoral vein. Angioplasty Angioplasty of the venous outflow was performed. Angioplasty balloon(s): [employer] [place] 7 mm ??x 4 cm Findings: Moderate 5 cm long stenotic venous outflow with persistent stenosis despite multiple angioplasties with no residual waist. Angioplasty Angioplasty of the artery graft anastomosis was performed. Angioplasty balloon(s): [employer] [place] 5 mm x 4 cm Findings: Despite multiple balloon dilations without residual waist, there is persistent stenosis on both angiography performed from the arterial side and reflux angiography. Stent placement Stent placement was performed venous outflow distal to prior stent due to recurrent elastic stenosis despite multiple angioplasty attempts. Stent placed: [place] Viabahn Stent type: Covered Stent diameter (mm): 7 Stent length (mm): 100 Balloon dilation of stent (mm): 7 mm Final angiography Final angiography was performed. Findings: Patency and flow through the outflow venous segments although overall flow through the graft was limited possibly due to a persistent arterial graft anastomotic stenosis. Final graft palpation: Palpable thrill Closure The sheath was removed and hemostasis was achieved with manual compression. A sterile dressing was applied. Contrast Contrast agent: Omnipaque 350 Contrast volume (mL): 110 Radiation Dose Fluoroscopy time (minutes): 20.6 Reference air kerma (mGy): 108 Kerma area product (Gy-cm2): 24.4 Additional Details Additional description of procedure: None Equipment details: None Specimens removed: None Estimated blood loss (mL): Less than 10 Standardized report: [id number] Attestation Signer name: Walt Lin MD I attest that I was present and scrubbed throughout the entire procedure. I reviewed the stored images and agree with the report as written. Sedation attestation: I was present during the intra-service time as documented by IR nurse. Thank you for letting us participate in the care of this patient. ??If you are a health care provider and have any questions regarding this report, please contact the number below. ??For patients who have questions please contact the health child day care provider that requested your imaging first. ? Electronically signed by: Walt Lin MD, [facility] ([phone]), at 11/08/2021 6:05 PM Narrative 11/08/2021 6:05 PM EDT PROCEDURE: Arteriovenous graft declot Procedural Personnel Attending physician(s): Walt Lin MD Fellow physician(s): None Resident physician(s): Moises Gaitan MD Advanced practice provider(s): None Pre-procedure diagnosis: ESRD on HD Post-procedure diagnosis: Same Indication: Thrombosed graft Additional clinical history: None Complications: No immediate complications. Procedure Note aWlt Lin MD - 11/08/2021 PROCEDURE: Arteriovenous graft declot Procedural Personnel Attending physician(s): Walt Lin MD Fellow physician(s): None Resident physician(s): Moises Gaitan MD Advanced practice provider(s): None Pre-procedure diagnosis: ESRD on HD Post-procedure diagnosis: Same Indication: Thrombosed graft Additional clinical history: None Complications: No immediate complications. IMPRESSION 1. Thrombosed RIGHT thigh arteriovenous dialysis graft. 2. Successful declot of thrombosed RIGHT thigh AVG with placement ofvenous outflow stent graft. Flows remained slow through the graft at thetermination of the procedure secondary to resistant artery graft anastomotic stenosis. Plan: May return to hemodialysis via a RIGHT thigh graft however may requiresurgical revision of the artery graft anastomosis if there is recurrentthrombosis. Tunneled hemodialysis catheter should remain in place until regulardialysis or surgical revision. PROCEDURE SUMMARY: - Access of dialysis graft with ultrasound guidance - Dialysis graft declot - Additional procedure(s): Stent placement in graft and/or outflow veins PROCEDURE DETAILS: Pre-procedure Consent: Informed consent for the procedure including risks, benefitsand alternatives was obtained and time-out was performed prior to theprocedure. Preparation: The site was prepared and draped using maximal sterilebarrier technique including cutaneous antisepsis. Anesthesia/sedation Level of anesthesia/sedation: Other-IV fentanyl and subcutaneouslidocaine administered for pain. Anesthesia/sedation administered by: Independent trained observer under attending supervision with continuous monitoring of the patients levelof consciousness and physiologic status Total intra-service sedation time (minutes): Not applicable Initial dialysis graft evaluation Dialysis graft side: Right Dialysis graft type: Femoral loop graft Initial graft palpation: No pulse, no thrill Access Local anesthesia was administered. The dialysis graft was accessed and a7 Frisian sheath was placed. Access technique: Micropuncture set with 21 gauge needle Access direction: Toward venous anastomosis Second access Local anesthesia was administered. The dialysis graft was accessed in asecond location and a 6 Frisian sheath was placed. Access technique: Micropuncture set with 21 gauge needle Access direction: Toward arterial anastomosis Intra-procedural thrombolytic injection Thrombolytic was injected within the thrombosed segment of the graft. Thrombolytic agent: tPA Thrombolytic dose: 1 mg Mechanical or aspiration thrombectomy Thrombectomy of the graft and outflow venous segments was performed. Thrombectomy device: Clot maceration and displacement with [place] balloonand Vel catheter Pulling of arterial plug The arterial plug was pulled using Vel balloon tip catheter. Angiography Catheter position: RIGHT superficial femoral artery. Findings: Moderate to severe stenosis of the artery graft anastomosis. Persistent moderate 5 cm long segment in the venous outflow tractextending from the distal previously placed stent to the confluence with the commonfemoral vein. Angioplasty Angioplasty of the venous outflow was performed. Angioplasty balloon(s): [employer] [place] 7 mm x 4 cm Findings: Moderate 5 cm long stenotic venous outflow with persistentstenosis despite multiple angioplasties with no residual waist. Angioplasty Angioplasty of the artery graft anastomosis was performed. Angioplasty balloon(s): [employer] [place] 5 mm x 4 cm Findings: Despite multiple balloon dilations without residual waist, thereis persistent stenosis on both angiography performed from the arterial sideand reflux angiography. Stent placement Stent placement was performed venous outflow distal to prior stent dueto recurrent elastic stenosis despite multiple angioplasty attempts. Stent placed: [place] Viabahn Stent type: Covered Stent diameter (mm): 7 Stent length (mm): 100 Balloon dilation of stent (mm): 7 mm Final angiography Final angiography was performed. Findings: Patency and flow through the outflow venous segments although overallflow through the graft was limited possibly due to a persistent arterialgraft anastomotic stenosis. Final graft palpation: Palpable thrill Closure The sheath was removed and hemostasis was achieved with manualcompression. A sterile dressing was applied. Contrast Contrast agent: Omnipaque 350 Contrast volume (mL): 110 Radiation Dose Fluoroscopy time (minutes): 20.6 Reference air kerma (mGy): 108 Kerma area product (Gy-cm2): 24.4 Additional Details Additional description of procedure: None Equipment details: None Specimens removed: None Estimated blood loss (mL): Less than 10 Standardized report: [id number] Attestation Signer name: Walt Lin MD I attest that I was present and scrubbed throughout the entire procedure.I reviewed the stored images and agree with the report as written. Sedation attestation: I was present during the intra-service time asdocumented by IR nurse. Thank you for letting us participate in the care of this patient. If youare a health care provider and have any questions regarding this report,please contact the number below. For patients who have questions please contactthe health child day care provider that requested your imaging first. Electronically signed by: Walt Lin MD, [facility]([phone]), at 11/08/2021 6:05 PM Luna L Lyndsey STITCH BONDING MACHINE OPERATOR IMG IR ORDERABLES documented in this encounter Visit Diagnoses Diagnosis ESRD (end stage renal disease) End stage renal disease ESRD (end stage renal disease) End stage renal disease documented in this encounter Care Teams [employer] Teacher Relationship Specialty Start Date End Date Carroll Fuentes DO [address] [place] [address] PCP - General 09/23/11 10/20/22 documented as of this encounter
--- OUTSIDE RECORDS SUMMARY | 2024-04-22 10:52 | XMS_ITS | Encounter Summary ---
Author Organization [facility] [place] [address] Care Team Providers Care School Standards Coach Name Role Phone AlfredoCarroll allison Primary Care Provider Reason for Referral * Diagnostic Test (Routine) - Closed Specialty Diagnoses / Procedures Referred By Contac t Referred To Contact Radiology Diagnoses ESRD (end stage renal disease) Procedures IR Dialysis Access - Tunneled Line IR Dialysis Access - AV Fistula Evaluations Luna Solorio APRN [facility] [place] [address] [place] [address] Referral ID Status Reason Start Date Expiration Date V isits Requested Visits Authorized [id number] Closed Specialty Service Requested 09/29/2021 04/01/2023 1 1 Reason for Visit * Diagnostic Test (Routine) - Closed Specialty Diagnoses / Procedures Referred By Contac t Referred To Contact Radiology Diagnoses ESRD (end stage renal disease) Procedures IR Dialysis Access - Tunneled Line IR Dialysis Access - AV Fistula Evaluations Luna Solorio APRN [facility] [place] [address] [place] [address] Referral ID Status Reason Start Date Expiration Date V isits Requested Visits Authorized [id number] Closed Specialty Service Requested 09/29/2021 04/01/2023 1 1 Encounter Details Date Type Department Care Team (Latest Contact Info) Description 09/29/2021 3:18 PM EDT - 09/29/2021 6:23 PM EDT Hospital [place] [address] Luna Solorio, BUSINESS EDUCATION PROFESSOR [facility] [place] [address] ESRD (end stage renal disease) Discharge Disposition: Home Social History Tobacco Use Types Packs/Day Years [...] Sign Reading Time Taken Comments Blood Pressure 139/87 09/29/2021 5:45 PM EDT Pulse 48 09/29/2021 5:45 PM EDT Temperature 35.9 ??C (96.6 ??F) 09/29/2021 3:33 PM ED T Respiratory Rate 12 09/29/2021 5:30 PM EDT Oxygen Saturation 98% 09/29/2021 5:45 PM EDT Inhaled Oxygen Concentration - - Weight - - Height - - Body Mass Index - - documented in this encounter Discharge Instructions * Discharge Instructions* aDnia Swartz RN - 09/29/2021 4:46 PM EDT [facility] Vascular and Interventional Radiology Discharge Instructions for Tunneled Hemodialysis Catheters The catheter was inserted for your hemodialysis treatments. Bandage: A sterile dressing will be placed over the catheter site. It consists of a small gauze with a clear dressing over it. This will be changed by the Dialysis staff. You should not change it at home. If the dressing loosens, place tape over the edges. Bathing: Do not take a shower until the Dialysis nurse or doctor says you may do so. Cover site with water-proof dressing and do not soak the dressing during shower. If it becomes wet, it must be changed. If this happens, phone the Dialysis staff. Pain: Apply ice bag to site (s) at 30 minute intervals (30 minutes on and 30 minutes off) for 24 hours. May use as needed for pain and/or bruising after 24 hours. If you notice bleeding from the catheter site, you should: Apply firm pressure over the catheter site for 10-15 minutes. Make sure the clamps are closed. Keep the site covered If you are still bleeding after 10 to 15 minutes reapply pressure. If the bleeding persists, have someone drive you to your local Emergency Department or call 911. Phone your doctor or the dialysis staff right away if: If you see any redness, swelling or drainage around the catheter . If you develop shaking chills. If you develop a fever greater than or equal to 101 degrees Fahrenheit . If you develop pain around the catheter site. The catheter breaks or you notice leaking from the catheter. When to call the Interventional Radiology Department: Please call with any questions or concerns. If it is during regular office hours, please call [phone]. If it is after regular office hours, or on weekends or holidays, please call [phone] and ask to speak to the Stabilizer Operator siebel solution architect for Interventional Radiology. You have received medication during your procedure to help lessen anxiety and keep you comfortable.These medications affect judgement and reaction time. We recommend that you do not drive, operate equipment, sign any important documents, or smoke unattended for 24 hours following your procedure. Because of the sedation, be careful on stairs, as you may be unsteady on your feet. You may resume your regular diet as tolerated. IV site -- slight redness, or tenderness is normal, you can use a warm compress. If tenderness and redness increases or foul drainage occurs, please contact your MD. Updated 04/27/19 documented in this encounter Medications at Time of Discharge Medication Sig Dispensed Refills Start Date End Date aspirin 81 mg Tablet, Delayed Release (E.C.) [...] tablet by mouth daily. 90 tablet 2018 guaiFENesin ER (Mucinex) 600 mg Tablet Extended Release 12hr Take 600 mg by mouth 2 times daily as needed for Congestion. 12/24/2022 sevelamer carbonate (Renvela) 800 mg Tablet Take 800 mg by mouth 3 times daily (with meals). 01/11/2024 multivitamin Capsule Take 1 capsule by mouth daily. 30 capsule 2018 12/25/2022 allopurinol (ZYLOPRIM) 100 mg Tablet Take 1 tablet by mouth daily. 30 tablet 11 2018 10/21/2022 losartan (COZAAR) 100 mg Tablet Take 1 tablet by mouth every morning. 60 tablet 2018 10/21/2022 pantoprazole (PROTONIX) 20 mg Tablet, Delayed Release (E.C.) Take 1 tablet by mouth 2 times daily. 60 tablet 2018 10/21/2022 tacrolimus (PROGRAF) 1 mg Capsule Take 1 capsule by mouth 2 times daily. 60 capsule 2018 10/21/2022 carvedilol (COREG) 12.5 mg Tablet Take 1 tablet by mouth 2 times daily (with meals). 60 tablet 3 2018 10/21/2022 documented as of this encounter Progress Notes * Sana Gay RN - 09/29/2021 6:14 PM EDT Per Charge nurse request pt is to go check in to the [facility] order to get assigned a dialysis chair. This nurse wheeled patient to the Ed and informed the triage staff regarding patient situation and the fact that he received some fentanyl, staff member verbalized understanding. No further action needed. * Sana Gay RN - 09/29/2021 5:35 PM EDT This nurse received report from RNSilviano. Pt is comfortable, awaiting for dialysis chair. * Dania Swartz RN - 09/29/2021 10:27 AM EDT [facility] Name: CHRISTY AMBROSE Date of : 1960 AGE: 61 y.o. Address: [address] [address] Phone: [phone] (home) Mobile: Telephone Information: Referring Provider: Luna Solorio REASON FOR VISIT: Order Questions Answers Where will study be performed? [facility] Radiology [120] Laterality Right Is the patient on anticoagulant / antiplatelet therapy ? Aspirin Reason for exam and clinical history: Cloted R thigh AVG Clinical information / boyce questions for radiologist: AVG was last declotted on 09/25/21 Planned procedure: Tunneled HD line Labs to be performed day of procedure: Potassium Sedation: Moderate (Conscious sedation) Prophylactic antibiotic : None Contrast: Omnipaque Additional medications for procedure: Lidocaine Position: Supine Consent: Scanned Medications to discontinue (and days held): None Case Urgency:: G- Other (non E or F elective cases) Allergies Allergen Reactions ??? Benazepril Hcl ??? Codeine Other (See Comments) Patient does not know reaction ??? Hydrochlorothiazide ??? Pollen Extracts Sneezing/runny nose Pertinent PMH: Patient Active Problem List Diagnosis Code ??? Epilepsy G40.909 ??? Gout M10.9 ??? Hypertension I10 ??? IgA nephropathy N02.8 ??? BCC (basal cell carcinoma of skin) C44.91 ??? Acne rosacea L71.9 ??? Rosacea L71.9 ??? Atopic rhinitis J30.9 ??? Injury of head S09.90XA ??? Non-neoplastic nevus I78.1 ??? Colon polyp K63.5 ??? Varicose veins of lower extremities I83.93 ??? Squamous cell carcinoma of skin of other parts of face C44.329 ??? 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 H/O kidney transplant Z94.0 ??? Weight loss R63.4 ??? Gastrointestinal hemorrhage K92.2 ??? Bradycardia R00.1 ??? Left renal mass N28.89 ??? 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 Subarachnoid hemorrhage I60.9 ??? Anemia of chronic renal failure N18.9, D63.1 ??? SDH (subdural hematoma) S06.5X9A ??? 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 CKD (chronic kidney disease) stage 5, GFR less than 15 ml/min N18.5 ??? Hypertension secondary to other renal disorders I15.1, N28.89 ??? Renal osteodystrophy N25.0 ??? 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 ESRD (end stage renal disease) on dialysis N18.6, Z99.2 Given/Comments 08/30/18 Tunneled HD Cath??Exchange Fentanyl 100mcg IV 11/30/19 RUE??Ffistulagram??with multiple PTAs?? Fentanyl??175??mcg IV; Versed 3.5??mg IV (pt awake for the most part,??BP??sensitive to sedation even with half doses). 12/27/20??Tunneled??Line??Placement Fentanyl??250??mcg IV, tolerated well 01/07/2021??RUE fistulagram??and tunneled line exchange Fentanyl??50??mcg IV Versed??1??mg IV 01/23/21??HD??Tunneled line??exchange Local only, tolerated well 03/20/21 HD Tunneled line exchange??/ angioplasty at [facility] Local only, tolerated well 09/25/21 RLE fistulagram Fentanyl 100 mcg IV, Heparin IV 3000 units, Cathflo 4 mg intra catheter, pttolerated procedure he denied pain pt run SB 09/29/21 Tunneled HD line placement?? Fentanyl 100 mcg IV, tolerated well ? 1605 to procedure room 4 via stretcher. Onto table supine. All monitors, O2, safety strap in place.Meds per protocol. Laboratory Results: Lab Results Component Value Date INR 0.9 08/03/2018 Lab Results Component Value Date CREATININE 5.34 (H) 05/23/2021 Lab Results Component Value Date K 7.4 (CRIT) 09/25/2021 Lab Results Component Value Date PLATELET 143 (L) 05/23/2021 documented in this encounter H&P Notes * Aaron Duran PA - 09/29/2021 3:47 PM EDT INTERVENTIONAL RADIOLOGY FOCUSED H&P: Procedure: The patient's history and physical exam have [...] 3: Patient with severe systemic disease Mallampati: I: soft palate, fauces, tonsillar pillars and uvula can be seen Confirm NPO status: Yes History of anesthetic complications: No Current medications reviewed: Yes Allergies reviewed: Yes Source Note - Aaron Duran PA - 09/25/2021 11:59 PM EDT Interventional Radiology Focused Pre-procedure H&P: PCP: Carroll Fuentes DO Referring Provider: Luna Solorio Planned procedure: Tunneled HD line Procedure indication: Clotted AVG IR workflow: Received call from [facility] regarding clotted/thrombosed AVG Order Questions Answers Where will study be performed? [facility] Radiology [120] Laterality Right Is the patient on anticoagulant / antiplatelet therapy ? Aspirin Reason for exam and clinical history: R thigh AVG clotted History of present illness: Per chart review, Christymaty Ambrose is a 61 y.o. 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 This graft was recently Evaluated on 09/25/21 and found to be thrombosed s/p TPA administration, venous anastomosis SENIOR FIELD SERVICE ENGINEER to 8mm and Vel balloon sweep who then received dialysis same day for hyperkalemia. He now presents to IR for tunneled HD line in the setting of re-thrombosed AVG. Will plan for tunneled HD line (last tunneled HD RIJ 04/01). Remainder of patient's medical and surgical history, allergies, medications, and social/family history obtained below as previously outlined in patient's medical record. IR history: Given/Comments 08/30/18 Tunneled HD Cath??Exchange Fentanyl 100mcg IV 11/30/19 RUE??Ffistulagram??with multiple PTAs?? Fentanyl??175??mcg IV; Versed 3.5??mg IV (pt awake for the most part,??BP??sensitive to sedation even with half doses). 12/27/20??Tunneled??Line??Placement Fentanyl??250??mcg IV, tolerated well 01/07/2021??RUE fistulagram??and tunneled line exchange Fentanyl??50??mcg IV Versed??1??mg IV 01/23/21??HD??Tunneled line??exchange Local only, tolerated well 03/20/21 HD Tunneled line exchange??/ angioplasty at [facility] Local only, tolerated well 09/25/21 RLE fistulagram Fentanyl 100 mcg IV, Heparin IV 3000 units, Cathflo 4 mg intra catheter, pttolerated procedure he denied pain pt run SB Assessment: 61 y.o. 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 Plan Planned procedure: Tunneled HD line Labs to be performed day of procedure: Potassium Sedation: Moderate (Conscious sedation) Prophylactic antibiotic : None Contrast: Omnipaque Additional medications for procedure: Lidocaine Position: Supine Consent: Scanned Medications to discontinue (and days held): None Cytopathology presence needed: No Case Urgency:: G- Other (non E or F elective cases) Labs: Lab Results Component Value Date HGB 10.7 (L) 05/23/2021 HCT 31.6 (L) 05/23/2021 WBC 8.3 05/23/2021 PLATELET 143 (L) 05/23/2021 INR 0.9 08/03/2018 BUN 23 (H) 05/23/2021 CREATININE 5.34 (H) 05/23/2021 ALBUMIN 4.2 11/29/2018 BILIDIR 0.2 05/15/2017 BILITOT 0.5 11/29/2018 AST 14 11/29/2018 ALT 13 11/29/2018 ALKPHOS 93 11/29/2018 Allergies: Benazepril hcl, Codeine, Hydrochlorothiazide, and Pollen extracts Medications: Current Outpatient Medications on File Prior to Encounter Medication Sig Dispense Refill ??? guaiFENesin ER (Mucinex) 600 mg Tablet Extended Release 12hr Take 600 mg by mouth 2 times dailyas needed for Congestion. ??? sevelamer carbonate (Renvela) 800 mg Tablet Take 800 mg by mouth 3 times daily (with meals). ??? aspirin 81 mg Tablet, Delayed Release (E.C.) Take 1 tablet by mouth daily. 30 tablet 3 ??? multivitamin Capsule Take 1 capsule by mouth daily. 30 capsule 0 ??? allopurinol (ZYLOPRIM) 100 mg Tablet Take 1 tablet by mouth daily. 30 tablet 11 ??? acetaminophen (TYLENOL) 500 mg Tablet Take 2 tablets by mouth every 6 hours. 30 tablet 1 ??? levETIRAcetam (KEPPRA) 500 mg Tablet Take 1 tablet by mouth 2 times daily. 60 tablet 0 ??? losartan (COZAAR) 100 mg Tablet Take 1 tablet by mouth every morning. (Patient taking differently: Take 50 mg by mouth every morning.) 60 tablet 0 ??? pantoprazole (PROTONIX) 20 mg Tablet, Delayed Release (E.C.) Take 1 tablet by mouth 2 times daily. 60 tablet 0 ??? tacrolimus (PROGRAF) 1 mg Capsule Take 1 capsule by mouth 2 times daily. (Patient taking differently: Take 1 mg by mouth 2 times daily. 05/05/21 per Capron Roya, patient taking 2 capsules in the morning and 1 capsule every evening) 60 capsule 0 ??? carvedilol (COREG) 12.5 mg Tablet Take 1 tablet by mouth 2 times daily (with meals). (Patient taking differently: Take 6.25 mg by mouth 2 times daily (with meals).) 60 tablet 3 ??? levothyroxine (SYNTHROID) 100 mcg Tablet Take 1 tablet by mouth daily. 90 tablet 0 No current facility-administered medications on file prior to encounter. Past medical/surgical history: Patient Active Problem List Diagnosis Code ??? Epilepsy G40.909 ??? Gout M10.9 ??? Hypertension I10 ??? IgA nephropathy N02.8 ??? BCC (basal cell carcinoma of skin) C44.91 ??? Acne rosacea L71.9 ??? Rosacea L71.9 ??? Atopic rhinitis J30.9 ??? Injury of head S09.90XA ??? Non-neoplastic nevus I78.1 ??? Colon polyp K63.5 ??? Varicose veins of lower extremities I83.93 ??? Squamous cell carcinoma of skin of other parts of face C44.329 ??? 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 H/O kidney transplant Z94.0 ??? Weight loss R63.4 ??? Gastrointestinal hemorrhage K92.2 ??? Bradycardia R00.1 ??? Left renal mass N28.89 ??? 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 Subarachnoid hemorrhage I60.9 ??? Anemia of chronic renal failure N18.9, D63.1 ??? SDH (subdural hematoma) S06.5X9A ??? 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 CKD (chronic kidney disease) stage 5, GFR less than 15 ml/min N18.5 ??? Hypertension secondary to other renal disorders I15.1, N28.89 ??? Renal osteodystrophy N25.0 ??? 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 ESRD (end stage renal disease) on dialysis N18.6, Z99.2 Past Medical History: Diagnosis Date ??? BP [...] AV Fistula Evaluations 11/30/2019 Sabrina Velez MD [facility] INTERVENTIONL RAD ??? IR DIALYSIS ACCESS - AV FISTULA EVALUATIONS 01/07/2021 IR Dialysis Access - AV Fistula Evaluations 01/07/2021 Sabrina Velez MD [facility] INTERVENTIONL RAD ??? IR DIALYSIS ACCESS - AV FISTULA EVALUATIONS 09/25/2021 IR Dialysis Access - AV Fistula Evaluations 09/25/2021 Kanu Apple MD [facility] INTERVENTIONL RAD ??? IR DIALYSIS ACCESS - TUNNELED LINE 07/30/2018 IR Dialysis Access - Tunneled Line 07/30/2018 Walt Lin MD [facility] INTERVENTIONL RAD ??? IR DIALYSIS ACCESS - TUNNELED LINE 08/30/2018 IR Dialysis Access - Tunneled Line 08/30/2018 Erwin Simon, [facility] INTERVENTIONL RAD ??? IR DIALYSIS ACCESS - TUNNELED LINE 12/27/2020 IR Dialysis Access - Tunneled Line 12/27/2020 Kanu Apple MD [facility] INTERVENTIONL RAD ??? IR DIALYSIS ACCESS - TUNNELED LINE 01/23/2021 IR Dialysis Access - Tunneled Line 01/23/2021 Kanu Apple MD [facility] INTERVENTIONL RAD ??? IR DIALYSIS ACCESS - TUNNELED LINE 03/20/2021 IR Dialysis Access - Tunneled Line 03/20/2021 Tab Harmon MD [facility] INTERVENTIONL RAD ??? IR LINE OR TUBE REMOVAL IN RECOVERY ROOM 07/31/2021 IR Line or Tube Removal in Recovery Room 07/31/2021 [facility] INTERVENTIONL RAD ??? KIDNEY TRANSPLANT KIDNEY TRANSPLANT / RECIPIENT/LT Procedure Date: 11/26/2002 ??? PRO ANASTOMOSIS, AV, ANY SITE Right 05/22/2021 AV FISTULA CREATION, DIRECT HEMODIALYSIS, ANY SITE, EG MADYSON FISTULA LOWER EXTREMITY (WRVU 11.9) performed by Odalis Elias MD at [facility] OR ??? PRO CREAT AV FISTULA, NON-AUTOGENOUS GRAFT Right 12/13/2018 PLACEMENT, AV HEMODIALYSIS GRAFT, SYNTHETIC GRAFT, UPPER EXTREMITY (WRVU 12.03) performed by Mary Garay MD at [facility] OR ??? PRO CREAT AV FISTULA, NON-AUTOGENOUS GRAFT Left 04/03/2021 PLACEMENT, AV HEMODIALYSIS GRAFT, SYNTHETIC GRAFT, UPPER EXTREMITY (WRVU 12.03) performed by Odalis Elias MD at [facility] MAIN OR ? ? PRO DEBRIDEMENT SUBCUTANEOUS TISSUE 20 SQCM/< Left 02/20/2016 DEBRIDEMENT SKIN AND SUBCU, HEAD/NECK performed by Miguel Angel Moreno MD at [facility] OR ??? PRO DECOMPRESS FOREARM, BRACH ART EXPLOR Left 04/06/2018 FASCIOTOMY, FOREARM, WITH BRACHIAL ARTERY EXPLORATION (WRVU 8.41) performed by Lida Peter MDat [facility] OR ??? PRO DIRECT REPAIR RUPTURED ANEURYSM, AXILLO-BRACHIAL ARM INCIS Left 04/06/2018 @REPAIR, RUPTURED AXILLARY OR BRACHIAL ARTERY ANEURYSM BY ARM INCISION (WRVU *) performed by Lida Peter MD at [facility] OR ??? PRO EXC PAROTD, TOTAL, UNILAT RAD NECK Left 02/05/2016 @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, TOTAL, WITH UNILATERAL RADICAL NECK DISSECTION performed by Miguel Angel Moreno MD at [facility] OR ??? PRO EXC SKIN MALIG 3.1-4CM FACE, FACIAL Left 02/05/2016 EXC MALIGNANT LESION, 3.1 TO 4.0CM, FACE performed by Miguel Angel Moreno MD at [facility] OR ? ? PRO EXC SKIN MALIG >4CM TRUNK, ARM, LEG 04/19/2012 EXC MALIGNANT LESION, MICHAEL > 4.0CM, TRUNK performed by SABRINA SANCHEZ at [facility] OR ??? PRO LAP, RADICAL NEPHRECTOMY Left 05/31/2017 @LAPAROSCOPY, RADICAL NEPHRECTOMY (WRVU 25.06) performed by Jax Mills MD at [facility] OR ??? PRO LIGATN ANGIOACCESS AV FISTULA Left 04/19/2018 LIGATION OR BANDING OF HEMODIALYSIS FISTULA OR GRAFT UPPER EXTREMITY (WRVU 6.25) performed by Odalis Elias MD at [facility] MAIN OR ??? PRO NEGATIVE PRESSURE WOUND THERAPY, LESS THAN OR EQUAL TO 50 SQCM Left 04/19/2018 DRESSING CHANGE (VAC ASSISTED) UP TO 50SQ.CM (WRVU 0.55) performed by Odalis Elias MD [facility] MAIN OR ??? PRO PHLEB VEINS - EXTREM - TO 20 Right 05/22/2021 STAB PHLEBECTOMY LISBET VEINS 1 EXTREMITY 10-20 INCISIONS (WRVU 7.71) performed by Odalis Elias MD at [facility] MAIN OR ??? PRO REBL VES GRAFT, UP EXTREM Left 04/06/2018 REPAIR BLOOD VESSEL WITH GRAFT OTHER THAN VEIN, UPPER EXTREMITY (WRVU 15.83) performed by Lida Peter MD at [facility] MAIN OR ??? PRO RELIEVE PRESSURE ON NERVE(S) Left 04/06/2018 (MSURG) CARPAL TUNNEL (WRVU 4.82) performed by Silviano Sparks MD at [facility] MAIN OR ??? PRO REPAIR INTERMEDIATE S/A/T/E 2.6-7.5 CM 04/19/2012 REPAIR INTERMEDIATE WOUND, (NO HANDS OR FEET) 2.6 TO 7.5CM, UPPER EXTREMITY performed by SABRINA SANCHEZ at [facility] MAIN OR ? ? PRO REPAIR INTERMEDIATE S/A/T/E > 30.0 CM Left 04/14/2018 REPAIR INTERMEDIATE WOUND, (NO HANDS OR FEET) >30.0CM, UPPER EXTREMITY (WRVU 5) performed by Yimi Easton MD at [facility] MAIN OR ??? PRO REVISE MEDIAN N/CARPAL TUNNEL SURG Left 04/06/2018 MEDIAN NERVE DECOMPRESSION (CARPAL TUNNEL RELEASE) (WRVU 4.97) performed by Lida Peter MD [facility] MAIN OR ? ? PRO SPLIT GRFT TRUNK, ARM, LEG <100SQCM Left 04/26/2018 SPLIT THICK SKIN GRAFT,100 SQ CM OR LESS, ARMS (WRVU 9.9) performed by Silviano Sparks MD at [facility] MAIN OR ? ? PRO SPLIT GRFT, HEAD, FAC, HAND, FEET <100SQCM N/A 02/20/2016 SPLIT THICKNESS SKIN SPLIT GRAFT,100SQ CM OR LESS, NECK performed by Migeul Angel Moreno MD at [facility] MAIN OR ??? PRO SPLIT GRFT, TRUNK, ARM, LEG EA 100SQCM N/A 04/26/2018 EA.ADDITIONAL 100SQ.CM STSG (WRVU 1.72) performed by Silviano Sparks MD at [facility] MAIN OR ??? PRO UNLISTED PROCEDURE VASCULAR SURGERY Left 11/20/2015 LIGATION\REPAIR AV FISTULA performed by Camilo Ireland MD at [facility] MAIN OR ??? PRO UNLISTED PROCEDURE VASCULAR SURGERY Left 11/20/2015 EXCISION VEIN FROM HAND performed by Camilo Ireland MD at [facility] MAIN OR ??? PRO UPPER GI ENDOSCOPY, BIOPSY N/A 05/13/2017 EGD WITH BIOPSY (WRVU 2.49) performed by Aditya Barrera MD at [facility] ENDOSCOPY ??? US RENAL TRANSPLANT BIOPSY 12/31/2010 ??? US RENAL TRANSPLANT RIGHT Right 06/04/2018 US Renal Transplant Right 06/04/2018 [facility] RAD ULTRASOUND Social history and habits: Social History Tobacco Use ??? Smoking status: Former Smoker Packs/day: 0.25 Years: 1.50 Pack years: 0.37 Types: Cigarettes Quit date: 12/03/2000 Years since quittin.8 ??? Smokeless tobacco: Former User Quit date: 04/14/2001 Vaping Use ??? Vaping Use: Never used Substance Use Topics ??? Alcohol use: No ??? Drug use: No Types: Marijuana Comment: havent in years/1995 Significant family history: Family History Problem Relation Age of Onset ??? Pancreatitis Father Pertinent ROS: as per HPI Physical exam: Pending (to be performed in interventional radiology the day of procedure) ASA: Pending (to be assessed in interventional radiology the day of procedure) Mallampati class: Pending (to be assessed in interventional radiology the day of procedure) 09/29/2021 PANCHITO Wallace documented in this encounter Plan of Treatment Not on file documented as of this encounter Procedures Procedure Name Priority Date/Time Associated Diagnosis Comments IR DIALYSIS ACCESS - TUNNELED LINE Routine 09/29/2021 5:01 PM EDT ESRD (end stage renal disease) HC POTASSIUM Routine 09/29/2021 3:56 PM EDT ESRD (end stage renal disease) documented in this encounter Results * IR Dialysis Access - Tunneled Line (09/29/2021 5:01 PM EDT) Anatomical Region Laterality Modality Abdomen X-Ray Angiograph y Narrative 10/06/2021 6:57 AM EDT Interventional Radiology Procedure Note Procedure: Tunneled dialysis catheter placement Clinical Indication: 61 y.o. 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 He now presents to IR for tunneled HD line in the setting of re-thrombosed AVG. Will plan for tunneled HD line (last tunneled HD RIJ 04/01). Informed Consent: After discussing risks (including infection, trauma / damage to surrounding structures, hemorrhage, non-success, amongst others) and benefits of the procedure, the patient consented to the procedure. Monitoring and Sedation Details: Due to the painful nature of the procedure, patient received split doses of intravenous fentanyl from the IR nurse while pulse, pressure and oxygen saturation were continuously monitored. Technique: A standard time-out was conducted just before the start of the procedure to verify all boyce aspects; including the correct patient and planned procedure, procedure location, informed consent, and all relevant critical information, all of which were correct. The patient was positioned supine on the procedure table. The left neck and chest was cleaned and prepped in typical sterile fashion; maximal sterile barrier technique was used throughout. ?? The left internal jugular vein was sonographically evaluated and determined to be patent. A permanent image was stored. Local anesthetic was administered. The vein accessed via real-time ultrasound and micropuncture set with 21 gauge needle. A 0.018 wire was advanced into the superior vena cava. The remainder of the procedure was performed with fluoroscopic guidance. A 4 Fr introducer sheath was placed and the wire exchanged for a 0.035 J wire. The wire was advanced into the inferior vena cava. Lidocaine with epinephrine was then infiltrated subcutaneously in a caudal-lateral direction from the venotomy. A 1 cm incision was made on the anterior chest. A tunneler was used to advance the catheter subcutaneously to the venous access site. The venotomy was dilated in serial fashion and a 16 Fr peel-away sheath advanced over the wire. The wire and inner obturator were removed and the 14.5 Fr catheter was advanced. Catheter position was confirmed and a static image stored. Both ports flushed and aspirated well (>5 ml/sec). Each lumen was instilled with a heparin solution and a sterile dressing applied. The neck venotomy was closed with liquid adhesive. The patient tolerated the procedure well and there were no immediate complications. Medications: 1% lidocaine <10 ml subcutaneously, 2% 1:100,000 lidocaine with epinephrine <10 ml subcutaneously, Fentanyl 100 mcg IV Contrast: None Fluoroscopic time 2.6 mGray Estimated blood loss: <10 ml Complications: No immediate Findings: 1. Diminutive versus occluded right IJV. Patent and easily compressible left IJV. 2. 14.5 Fr tunneled dual lumen left-sided hemodialysis catheter placement, catheter tip positioned in the proximal right atrium. Impression: Insertion of left internal jugular, 14.5 Fr 32 cm cuffed dialysis catheter. The catheter may be used immediately. Plan: Patient to IR recovery unit, may discharge home when IR nursing criteria is met. Resident/Fellow: Nadeen Espinal MD Attending: Tab Harmon MD I, Dr. Harmon, was present throughout the procedure. I was present during the intraservice time as documented by the IR Nurse. ?? Luna Lopez Lyndsey BUSINESS EDUCATION PROFESSOR IMG IR ORDERABLES * (ABNORMAL) Potassium (09/29/2021 3:56 PM EDT) Potassium 6.8(Criti constance) 3.5 - 5.0 mmol/L [facility] Comment: called by EB/read back by Ashleigh Jurado 09-29-21 @ 8486 Please note: ??Patients with WBC >100,000 may have falsely elevated Potassium levels. ??For accurate Potassium quantification in these patients send serum separator tube (gold top) for subsequent determinations. ??Contact the Clinical Chemistry Laboratory if there are any questions. Blood 09/29/2021 3:56 PM EDT 09/29/2021 4:07 PM EDT Narrative Resulting Agency Comment Spec In Lab Sabrina Velez MD CHEMISTRY ORDERABLES [facility] [place] [address] documented in this encounter Visit Diagnoses Diagnosis ESRD (end stage renal disease) End stage renal disease documented in this encounter Administered Medications Inactive Administered Medications - up to 3 most recent administrations Medication Order MAR Action Action Date Dose Rate Site fentaNYL (pf) (50 mcg/mL) multi-dose injection 25-50 mcg 25-50 mcg, Intravenous, EVERY 3 MIN PRN, Starting on Wed09/29/21 at 1536, Until Wed09/30/21 at 0233, Pain, per unit protocol, - Start dose 50 mcg (reduce dose to 25 mcg if history of sedation sensitivity). - Titration dose 25-50 mcg IV, (based on patient response) every 3 minutes PRN, to maintain procedural pain less than 2 per pain Scale. Maximum dose: 50 mcg/dose, 250 mcg/hour For use in Interventional Radiology (IR) only for procedural sedation with direct provider supervision and verbal order., Angio/IR (Day of Procedure), Routine Given 09/29/2021 4:50 PM EDT 25 mcg Given 09/29/2021 4:41 PM EDT 25 mcg Given 09/29/2021 4:30 PM EDT 25 mcg lidocaine (Xylocaine) 1% (10 mg/mL) injection 10 mg 10 mg, Subcutaneous, ONCE, 1 dose, On Wed09/29/21 at 1600, For use in Interventional Radiology (IR) only for procedure with direct provider supervision and verbal order., Angio/IR (Day of Procedure), Routine Given 09/29/2021 4:30 PM EDT 10 mg documented in this encounter Care Teams School Standards Coach Relationship Specialty Start Date End Date Carroll Fuentes DO [address] [place] [address] PCP - General 09/23/11 10/20/22 documented as of this encounter
--- OUTSIDE RECORDS SUMMARY | 2024-04-22 10:52 | XMS_ITS | Encounter Summary ---
[place] [address] Care Team Providers Care Ob/Gyn Doctor Name Role Phone Carroll Fuentes DO Primary Care Provider [phone] Encounter Details Date Type Department Care Team (Late st Contact Info) Description 06/06/2021 Telephone [place] [phone] Maisha You RN Social History Tobacco Use Types Packs/Day Years [...] encounter Miscellaneous Notes * Telephone Encounter - Maisha You RN - 06/06/2021 3:37 PM EST Nursing Technician faxed office note from today's visit to [facility] dialysis unit per request of PRAVEENA Snyder. documented in this encounter Plan of Treatment Not on file documented as of this encounter Visit Diagnoses Not on filedocumented in this encounter Care Teams Ob/Gyn Doctor Relationship Specialty Start Date End Date Carroll Fuentes, DO [address] [place] [address] PCP - General 09/23/11 10/20/22 documented as of this encounter
--- OUTSIDE RECORDS SUMMARY | 2024-04-22 10:52 | XMS_ITS | Encounter Summary ---
[place] [address] Care Team Providers Care Laminating Machine Tender Name Role Phone AlfredoCarroll allison Primary Care Provider Reason for Referral * Diagnostic Test (Routine) - Closed Specialty Diagnoses / Procedures Referred By Shashi ko Referred To Contact Radiology Diagnoses ESRD (end stage renal disease) Procedures IR Line or Tube Removal in Recovery Room IR Dialysis Access - Tunneled Line Luna Solorio RESTAURANT SERVER [facility] [address] [place] [address] [place] [address] Referral ID Status Reason Start Date Expiration Date V isits Requested Visits Authorized [id number] Closed Specialty Service Requested 07/25/2021 01/22/2023 1 1 Reason for Visit * Diagnostic Test (Routine) - Closed Specialty Diagnoses / Procedures Referred By Shashi t Referred To Contact Radiology Diagnoses ESRD (end stage renal disease) Procedures IR Line or Tube Removal in Recovery Room IR Dialysis Access - Tunneled Line Luna Solorio APRN [facility] [address] [place] [address] Referral ID Status Reason Start Date Expiration Date V isits Requested Visits Authorized [id number] Closed Specialty Service Requested 07/25/2021 01/22/2023 1 1 Encounter Details Date Type Department Care Team (Latest Contact Info) Description 07/31/2021 1:00 PM EST - 07/31/2021 11:59 PM EST Hospital En[place] [address] Luna Solorio RESTAURANT SERVER [facility] [place] [address] ESRD (end stage renal disease) Discharge Disposition: [...] on file documented as of this encounter Discharge Instructions * Discharge Instructions* Kiara Cuenca RN - 07/31/2021 2:18 PM EST [facility] Vascular and Interventional Radiology Discharge Instructions For Your Puncture Site Activity and Diet: ??? Go Home and rest quietly for the remainder of the day. You may resume your normal activities tomorrow. ??? Resume your usual diet after the procedure. Bandage: There is a sterile dressing over the puncture site consisting of small gauze with a clear dressing (Tegaderm). This dressing should be left in place for 24 hours. If the clear dressing becomes loose you should place tape over the edges to secure it in place. Bathing: Do not take a shower until 24 hours after your procedure; after this time you may shower with the dressing in place, then remove it and pat your skin dry. You may use a bandaid to cover the site if there is any drainage. When to call your healthcare provider: ??? If you notice bleeding or a bulge from the puncture site, you should apply firm pressure over the site for 10-15 minutes, keeping the site covered and call your doctor. If you are still bleeding after 10-15 minutes, reapply pressure, and have someone drive you to the nearest Emergency Department, or call 911. ??? If you develop pain, redness, drainage or swelling at or around the puncture site. ??? If you develop fever equal to or greater than 101F and/or shaking chills. When to call the Interventional Radiology Department: Please call with any questions or concerns. If it is during regular office hours, please call [phone]. If it is after regular office hours, or on weekends or holidays, please call [phone] and ask to speak to the Help Desk Support operation specialist for Interventional Radiology. You have received medication [...] or foul drainage occurs, please contact your M. D. Revised 07/26/15 documented in this encounter Medications at Time [...] 2018 10/21/2022 documented as of this encounter H&P Notes * Veto Goodman PA - 07/28/2021 11:15 AM EST Images from the original note were not included. Interventional Radiology Focused Pre-procedure H&P: PCP: Carroll Fuentes DO Referring Provider: Luna Solorio Procedure indication: ESRD, alternate functioning dialysis access, discontinue fci durable venous access for dialysis IR workflow: Procedure request received through Interventional Radiology eDH order queue. Order Questions Answers Where will study be performed? [facility] Radiology [120] Is the patient on anticoagulant / antiplatelet therapy ? Aspirin Reason for exam and clinical history: R thigh AVG functioning well. please removed tunneled HD catheter. History of present illness: Per chart review, Adama Ram is a 60 y.o. male who presents to Interventional Radiology to undergo removal of right chest tunneled venous catheter in setting of ESRD. This is a patient who underwent new lower extremity saphenous A/V loop AVG on 05/22/21. Functioningwell. Remainder of patient's medical and surgical history, [...] 03/20/21 HD Tunneled line exchange??[place] [facility] [place], tolerated Imaging: Assessment: 60 y.o. male with ESRD and alternate functional tetlin dialysis access presenting to Interventional Radiology for catheter removal. Plan: Tunneled catheter removal at bedside with lidocaine Labs: Lab Results Component Value Date HGB [...] by mouth 2 times daily. 05/05/21 per Benjie Pryor, patient taking 2 capsules in the morning [...] face C44.329 ??? 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 [facility] current use of immunosuppressive drug Z79.899 ??? [...] AV Fistula Evaluations 11/30/2019 Sabrina Velez MD [facility] INTERVENTIONL RAD ??? IR DIALYSIS ACCESS - AV FISTULA EVALUATIONS 01/07/2021 IR Dialysis Access - AV Fistula Evaluations 01/07/2021 Sabrina Velez MD [facility] INTERVENTIONL RAD ??? IR DIALYSIS ACCESS - TUNNELED LINE 07/30/2018 IR Dialysis Access - Tunneled Line 07/30/2018 Walt Lin MD [facility] INTERVENTIONL RAD ??? IR DIALYSIS ACCESS - TUNNELED LINE 08/30/2018 IR Dialysis Access - Tunneled Line 08/30/2018 Erwin Simon APRN [facility] INTERVENTIONL RAD ??? IR DIALYSIS ACCESS - TUNNELED LINE 12/27/2020 IR Dialysis Access - Tunneled Line 12/27/2020 Kanu Apple MD [facility] INTERVENTIONL RAD ??? IR DIALYSIS ACCESS - TUNNELED LINE 01/23/2021 IR Dialysis Access - Tunneled Line 01/23/2021 Kanu Apple MD [facility] INTERVENTIONL RAD ??? IR DIALYSIS ACCESS - TUNNELED LINE 03/20/2021 IR Dialysis Access - Tunneled Line 03/20/2021 Tab Harmon MD [facility] INTERVENTIONL RAD ??? KIDNEY TRANSPLANT KIDNEY TRANSPLANT / RECIPIENT/LT Procedure Date: 11/26/2002 ??? PRO ANASTOMOSIS, AV, ANY SITE Right 05/22/2021 AV FISTULA CREATION, DIRECT HEMODIALYSIS, ANY SITE, EG MADYSON FISTULA LOWER EXTREMITY (WRVU 11.9) performed by Odalis Elias MD at [facility] MAIN OR ??? PRO CREAT AV FISTULA, NON-AUTOGENOUS GRAFT Right 12/13/2018 PLACEMENT, AV HEMODIALYSIS GRAFT, SYNTHETIC GRAFT, UPPER EXTREMITY (WRVU 12.03) performed by Mary Garay MD at [facility] MAIN OR ??? PRO CREAT AV FISTULA, NON-AUTOGENOUS GRAFT Left 04/03/2021 PLACEMENT, AV HEMODIALYSIS GRAFT, SYNTHETIC GRAFT, UPPER EXTREMITY (WRVU 12.03) performed by Odalis Elias MD at [facility] MAIN OR ? ? PRO DEBRIDEMENT SUBCUTANEOUS TISSUE 20 SQCM/< Left 02/20/2016 DEBRIDEMENT SKIN AND SUBCU, HEAD/NECK performed by Miguel Angel Moreno MD at [facility] MAIN OR ??? PRO DECOMPRESS FOREARM, BRACH ART EXPLOR Left 04/06/2018 FASCIOTOMY, FOREARM, WITH BRACHIAL ARTERY EXPLORATION (WRVU 8.41) performed by Lida Peter, [facility] MAIN OR ??? PRO DIRECT REPAIR RUPTURED ANEURYSM, AXILLO-BRACHIAL ARM INCIS Left 04/06/2018 @REPAIR, RUPTURED AXILLARY OR BRACHIAL ARTERY ANEURYSM BY ARM INCISION (WRVU *) performed by Lida Peter MD at [facility] MAIN OR ??? PRO EXC PAROTD, TOTAL, [...] 4.0CM, TRUNK performed by SABRINA SANCHEZ at [facility] MAIN OR ??? PRO LAP, RADICAL NEPHRECTOMY Left 05/31/2017 @LAPAROSCOPY, RADICAL NEPHRECTOMY (WRVU 25.06) performed by Jax Mills MD at [facility] MAIN OR ??? PRO LIGATN ANGIOACCESS AV FISTULA Left 04/19/2018 LIGATION OR BANDING OF HEMODIALYSIS FISTULA OR GRAFT UPPER EXTREMITY (WRVU 6.25) performed by Odalis Elias MD at [facility] OR ??? PRO NEGATIVE PRESSURE WOUND THERAPY, LESS THAN OR EQUAL TO 50 SQCM Left 04/19/2018 DRESSING CHANGE (VAC ASSISTED) UP TO 50SQ.CM (WRVU 0.55) performed by Odalis Elias MD [facility] OR ??? PRO PHLEB VEINS - EXTREM - TO 20 Right 05/22/2021 STAB PHLEBECTOMY LISBET VEINS 1 EXTREMITY 10-20 INCISIONS (WRVU 7.71) performed by Odalis Elias MD at [facility] MAIN OR ??? PRO REBL VES GRAFT, UP EXTREM Left 04/06/2018 REPAIR BLOOD VESSEL WITH GRAFT OTHER THAN VEIN, UPPER EXTREMITY (WRVU 15.83) performed by Lida Peter MD at [facility] OR ??? PRO RELIEVE PRESSURE ON NERVE(S) Left 04/06/2018 (MSURG) CARPAL TUNNEL (WRVU 4.82) performed by Silviano Sparks MD at [facility] MAIN OR ??? PRO REPAIR INTERMEDIATE S/A/T/E 2.6-7.5 CM 04/19/2012 REPAIR INTERMEDIATE WOUND, (NO HANDS OR FEET) 2.6 TO 7.5CM, UPPER EXTREMITY performed by SABRINA SANCHEZ at [facility] MAIN OR ? ? PRO REPAIR INTERMEDIATE S/A/T/E > 30.0 CM Left 04/14/2018 REPAIR INTERMEDIATE WOUND, (NO HANDS OR FEET) >30.0CM, UPPER EXTREMITY (WRVU 5) performed by Yimi Easton MD at [facility] OR ??? PRO REVISE MEDIAN N/CARPAL TUNNEL SURG Left 04/06/2018 MEDIAN NERVE DECOMPRESSION (CARPAL TUNNEL RELEASE) (WRVU 4.97) performed by Lida Peetr MD [facility] MAIN OR ? ? PRO SPLIT GRFT TRUNK, ARM, LEG <100SQCM Left 04/26/2018 SPLIT THICK SKIN GRAFT,100 SQ CM OR LESS, ARMS (WRVU 9.9) performed by Silviano Sparks MD at [facility] MAIN OR ? ? PRO SPLIT GRFT, HEAD, FAC, HAND, FEET <100SQCM N/A 02/20/2016 SPLIT THICKNESS SKIN SPLIT GRAFT,100SQ CM OR LESS, NECK performed by Miguel Angel Moreno MD at [facility] MAIN OR ??? PRO SPLIT GRFT, TRUNK, ARM, LEG EA 100SQCM N/A 04/26/2018 EA.ADDITIONAL 100SQ.CM STSG (WRVU 1.72) performed by Silviano Sparks MD at [facility] MAIN OR ??? PRO UNLISTED PROCEDURE VASCULAR SURGERY Left 11/20/2015 LIGATION\REPAIR AV FISTULA performed by Camilo Ireland MD at [facility] MAIN OR ??? PRO UNLISTED PROCEDURE VASCULAR SURGERY Left 11/20/2015 EXCISION VEIN FROM HAND performed by Camilo Ireland MD at [facility] MAIN OR ??? PRO UPPER GI ENDOSCOPY, BIOPSY N/A 05/13/2017 EGD WITH BIOPSY (WRVU 2.49) performed by Aditya Barrera MD at [facility] ENDOSCOPY ??? US RENAL TRANSPLANT BIOPSY 12/31/2010 ??? US RENAL TRANSPLANT RIGHT Right 06/04/2018 US Renal Transplant Right 06/04/2018 [facility] RAD ULTRASOUND Social history and habits: Social History Tobacco Use ??? Smoking status: Former Smoker Packs/day: 0.25 Years: 1.50 Pack years: 0.37 Types: Cigarettes Quit date: 12/03/2000 Years since quittin.6 ??? Smokeless tobacco: Former User Quit date: [...] in interventional radiology the day of procedure) 07/28/2021 PANCHITO Lipscomb documented in this encounter Plan of Treatment Not on file documented as of this encounter Procedures Procedure Name Priority Date/Time Associated Diagnosis Comments IR LINE OR TUBE REMOVAL IN RECOVERY ROOM Routine 07/31/2021 2:39 PM EST ESRD (end stage renal disease) documented in this encounter Results * IR Line or Tube Removal in Recovery Room (07/31/2021 2:39 PM EST) Anatomical Region Laterality Modality X-Ray Angiograph y Narrative 07/31/2021 2:48 PM EST Interventional Radiology Procedure Note Procedure: Tunneled central venous catheter explant Indication: ESRD, discontinue durable fci central venous access Pre-procedure: Informed consent for the procedure including risks, benefits and alternatives was obtained and time-out was performed prior to the procedure. Maximum sterile barrier technique was used throughout the procedure. Sedation: None Technique: Local anesthetic was administered at the catheter exit site. The catheter cuff was identified and freed from subcutaneous tissue with a combination of traction and blunt dissection. Catheter was withdrawn intact from the tunnel site. Hemostasis was achieved with manual compression. Clean and sterile dressing applied. Medications: 1% lidocaine <10 mL subcut Contrast: None Fluoroscopy time: None Estimated blood loss: 0 mL Complications: No immediate Impression: Removal of right internal jugular, 14.5 Fr 28 cm cuffed dialysis catheter. Service provider: Veto Goodman PA-C Attending of Record: Sabrina Velez MD 07/31/2021 Salvador Moise MD Luna Solorio RESTAURANT SERVER IMG IR ORDERABLES documented in this encounter Visit Diagnoses Diagnosis ESRD (end stage renal disease) End stage renal disease documented in this encounter Care Teams Laminating Machine Tender Relationship Specialty Start Date End Date Carroll Fuentes DO [address] [place] [address] PCP - General 09/23/11 10/20/22 documented as of this encounter
--- OUTSIDE RECORDS SUMMARY | 2024-04-22 10:52 | XMS_ITS | Encounter Summary ---
[place] [address] Care Team Providers Care Air Tester Name Role Phone AlfredoCarroll allison Primary Care Provider Reason for Referral * Diagnostic Test (Routine) - Closed Specialty Diagnoses / Procedures Referred By Shashi ko Referred To Contact Radiology Diagnoses ESRD (end stage renal disease) Procedures IR Dialysis Access - AV Fistula Evaluations Luna Solorio [facility] [place] [address] [place] [address] Referral ID Status Reason Start Date Expiration Date V isits Requested Visits Authorized [id number] Closed Specialty Service Requested 10/24/2021 04/25/2023 1 1 Reason for Visit * Diagnostic Test (Routine) - Closed Specialty Diagnoses / Procedures Referred By Shashi ko Referred To Contact Radiology Diagnoses ESRD (end stage renal disease) Procedures IR Dialysis Access - AV Fistula Evaluations Luna Solorio [employer] [facility] [place] [address] [place] [address] Referral ID Status Reason Start Date Expiration Date V isits Requested Visits Authorized [id number] Closed Specialty Service Requested 10/24/2021 04/25/2023 1 1 Encounter Details Date Type Department Care Team (Latest Contact Info) Description 11/05/2021 11:57 AM EDT - 11/05/2021 11:59 PM EDT Hospital En[place] [address] Luna Solorio APRN [facility] [place] [address] ESRD (end stage renal disease) Discharge Disposition: [...] Sign Reading Time Taken Comments Blood Pressure 132/90 11/05/2021 6:15 PM EDT Pulse 47 11/05/2021 4:15 PM EDT Temperature 36.7 ??C (98.1 ??F) 11/05/2021 4:10 PM ED T Respiratory Rate 16 11/05/2021 6:15 PM EDT Oxygen Saturation 100% 11/05/2021 6:15 PM EDT Inhaled Oxygen Concentration - - Weight - - Height - - Body Mass Index - - documented in this encounter Discharge Instructions * Discharge Instructions* Wilfredo Cuenca RN - 11/05/2021 1:29 PM EDT [facility] Vascular and Interventional Radiology Discharge Instructions after your Fistulagram Bandage: The dressing(s) over the puncture site(s) in your fistula is/are covered with a dressing of folded gauze and bandaid(s). These should be left in place until the possibility of bleeding has passed (usually about six hours). When you do remove the dressing, do so slowly. If Bleeding Occurs: apply firm (but not excessive) direct pressure just enough to stop the bleeding, for 10-15 minutes. If the bleeding continues, have someone drive you to the nearest Emergency Department or call 911. Notify your Dialysis Center: If you notice a change in the pulse or thrill in your fistula. If you notice a change in your skin color at or around the fistula. If you notice a change in the circulation below the fistula (i.e., fingers or toes) such as cool and/or pale skin. If you see any redness or swelling. If you develop a fever greater than or equal to 101 degrees Fahrenheit. If you develop shaking chills. If you develop pain around the fistula site. If you have questions about your fistula or dialysis. When to call the Interventional Radiology Department: Please call with any questions or concerns. If it is during regular office hours, please call [phone]. If it is after regular office hours, or on weekends or holidays, please call [phone] and ask to speak to the Salon Shampoo Assistant bone crusher for Interventional Radiology. You have received medication during your procedure to help lesson anxiety and keep you comfortable.These medications affect [...] occurs, please contact your M. D. Revised 04/27/19 documented in this encounter Medications at [...] as of this encounter Progress Notes * Anand Gallo RN - 11/05/2021 5:[address] Becca Faye has removed the TipStop and has achieved hemostasis at the puncture site. * Anand Gallo RN - 11/05/2021 5:[address] Becca Faye informed, unable to find pulse, thrill or bruit in the graft. * Anand Gallo RN - 11/05/2021 5:18 PM EDT 1715 - Dr. Morgan Lin has achieved hemostasis by pressure, and he advised we wait/observe for 20mminutes before discharging. * Anand Gallo RN - 11/05/2021 5:[address] Lin at the bedside to evaluate the puncture sites. * Thalia Jacobo RN - 11/05/2021 2:51 PM EDT [facility] Name: CHRISTY AMBROSE Date of : 1960 AGE: 61 y.o. Address: [place] [address] (home) Mobile: Telephone Information: Referring Provider: Luna Solorio REASON FOR VISIT: Order Questions Answers Where will study be performed? [facility] Radiology [120] Laterality Right Is the patient on anticoagulant / antiplatelet therapy ? Aspirin Reason for exam and clinical history: clotted R thigh AVG. has been recently declotted on 09/25/21 and 10/10/21. will schedule after dialysis with his history of hyperkalemia Planned procedure: Right lower extremity fistulagram Labs to be performed day of procedure: Potassium Sedation: Moderate (Conscious sedation) Prophylactic antibiotic : None Contrast: Omnipaque Additional medications for procedure: Lidocaine Position: Supine Consent: Completed Medications to discontinue (and days held): None Case Urgency:: F- Elective OUT-patient intervention within 3 days Allergies Allergen Reactions ??? Benazepril Hcl ??? [...] face C44.329 ??? 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 Fentanyl??175??mcg IV; Versed 3.5??mg IV (pt awake for the most part,??BP??sensitive to sedation even with half doses). 12/27/20??Tunneled??Line??Placement Fentanyl??250??mcg IV, tolerated well 01/07/2021??RUE fistulagram??and tunneled line exchange Fentanyl??50??mcg IV Versed??1??mg IV 01/23/21??HD??Tunneled line??exchange Local only, tolerated well 03/20/21 HD Tunneled line exchange??/ angioplasty at [facility] Local only, tolerated well 09/25/21 ??RLE fistulagram Fentanyl??100??mcg IV, Heparin IV 3000 units, Cathflo 4 mg intra catheter, pt tolerated procedure he denied pain pt run SB?? 09/29/21 Tunneled HD line placement?? Fentanyl??100??mcg IV, tolerated well 10/1021 Fistulogram: 3mg TPA, ballooning, stent at graph-vein anastamosis ??Versed 2mg, Fentanyl 200mcg, Alteplase 3mg, heparin 5000U 11/05/21 Fistulagram, with angioplasty Fentanyl 200 mcg IV, Heparin 3000 units IV, Cathflo 1 mg intra-catheter, ? 1248 to procedure room 1 via stretcher. Onto table supine. All monitors, O2, safety strap in place.Meds per protocol. Fistulagrams Post Procedure Site: Right thigh Time sheath removed: 1554 Tip stop time: 1558 Tip stop removal: .vasc 17:05pm endorsed patient over to SAVANNA Najera. Laboratory Results: Lab Results Component Value Date INR 0.9 08/03/2018 Lab Results Component Value Date CREATININE 7.48 (H) 09/30/2021 Lab Results Component Value Date K 5.3 (H) 10/10/2021 Lab Results Component Value Date PLATELET 175 09/29/2021 * Wilfredo Cuecna RN - 10/31/2021 10:41 AM EDT [facility] Name: CHRISTY AMBROSE Date of : 1960 AGE: 61 y.o. Address: [address] [address] (home) Mobile: Telephone Information: Referring Provider: Luna Solorio REASON FOR VISIT: Order Questions Answers Where will study be performed? [facility] Radiology [120] Laterality Right Is the patient on anticoagulant / antiplatelet therapy ? Aspirin Reason for exam and clinical history: clotted R thigh AVG. has been recently declotted on 09/25/21 and 10/10/21. will schedule after dialysis with his history of hyperkalemia Planned procedure: Right lower extremity fistulagram Labs to be performed day of procedure: Potassium Sedation: Moderate (Conscious sedation) Prophylactic antibiotic : None Contrast: Omnipaque Additional medications for procedure: Lidocaine Position: Supine Consent: Completed Medications to discontinue (and days held): None Case Urgency:: F- Elective OUT-patient intervention within 3 days Allergies Allergen Reactions ??? Benazepril Hcl ??? [...] face C44.329 ??? 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 Fentanyl??175??mcg IV; Versed 3.5??mg IV (pt awake for the most part,??BP??sensitive to sedation even with half doses). 12/27/20??Tunneled??Line??Placement Fentanyl??250??mcg IV, tolerated well 01/07/2021??RUE fistulagram??and tunneled line exchange Fentanyl??50??mcg IV Versed??1??mg IV 01/23/21??HD??Tunneled line??exchange Local only, tolerated well 03/20/21 HD Tunneled line exchange??/ angioplasty at [facility] Local only, tolerated well 09/25/21 ??RLE fistulagram Fentanyl??100??mcg IV, Heparin IV 3000 units, Cathflo 4 mg intra catheter, pt tolerated procedure he denied pain pt run SB?? 09/29/21 Tunneled HD line placement?? Fentanyl??100??mcg IV, tolerated well 10/1021 Fistulogram: 3mg TPA, ballooning, stent at graph-vein anastamosis ??Versed 2mg, Fentanyl 200mcg, Alteplase 3mg, heparin 5000U ? Laboratory Results: Lab Results Component Value Date INR 0.9 08/03/2018 Lab Results Component Value Date CREATININE 7.48 (H) 09/30/2021 Lab Results Component Value Date K 5.3 (H) 10/10/2021 Lab Results Component Value Date PLATELET 175 09/29/2021 documented in this encounter H&P Notes * Aaron Duran PA - 11/05/2021 12:28 PM EDT INTERVENTIONAL RADIOLOGY FOCUSED H&P: Procedure: AV Fistulagram The patient's history and physical exam have [...] Yes Allergies reviewed: Yes Source Note - Veto Goodman PA - 10/24/2021 9:04 AM EDT Interventional Radiology Focused Pre-procedure H&P: PCP: Carroll Fuentes DO Referring Provider: No ref. provider found Planned procedure: Right lower extremity fistulagram Procedure indication: End stage renal disease, malfunctioning dialysis access IR workflow: Procedure request received through Interventional Radiology eDH order queue. Question Answer Where will study be performed? [facility] Radiology Laterality Right Is the patient on anticoagulant / antiplatelet therapy ? Aspirin Reason for exam and clinical history: clotted R thigh AVG. ??has been recently declotted on 09/25/21and 10/10/21. ??will schedule after dialysis with his history of hyperkalemia History of present illness: Per chart review, Christy Ambrose is a 61 y.o. male who presents to Interventional Radiology to undergo right lower extremity fistulagram. This is a patient who failed upper extremity accesses who underwent creation of a right saphenous A/V loop AVG by Vascular Surgery on 05/22/21. Recently complicated by recurrent clotting, two interventions by [facility] IR in the past month. Most recent intervention by IR on 10/10/21: Successful declot of the femoral AV graft. Resolution of the endograft stenosis after angioplasty. Resolution of the graft-vein anastomotic stenosis after stent graft placement. Brisk flow of contrast throughout the graft and outflow vein. Mild persistent residual stenosis at the venous confluence at the level of the common femoral vein. Discussed with Dr Elias, who will arrange formal duplex study following fistulagram to evaluate further. Remainder of patient's medical and surgical history, allergies, medications, and social/family history obtained below as previously outlined in patient's medical record. IR history: 08/30/18 Tunneled HD Cath??Exchange Fentanyl 100mcg IV 11/30/19 RUE??Ffistulagram??with multiple PTAs?? Fentanyl??175??mcg IV; Versed 3.5??mg IV (pt awake for the most part,??BP??sensitive to sedation even with half doses). 12/27/20??Tunneled??Line??Placement Fentanyl??250??mcg IV, tolerated well 01/07/2021??RUE fistulagram??and tunneled line exchange Fentanyl??50??mcg IV Versed??1??mg IV 01/23/21??HD??Tunneled line??exchange Local only, tolerated well 03/20/21 HD Tunneled line exchange??/ angioplasty at [facility] Local only, tolerated well 09/25/21 ??RLE fistulagram Fentanyl??100??mcg IV, Heparin IV 3000 units, Cathflo 4 mg intra catheter, pt tolerated procedure he denied pain pt run SB?? 09/29/21 Tunneled HD line placement?? Fentanyl??100??mcg IV, tolerated well 10/1021 Fistulogram: 3mg TPA, ballooning, stent at graph-vein anastamosis ??Versed 2mg, Fentanyl 200mcg, Assessment: 61 y.o. male with malfunctioning dialysis access presenting to Interventional Radiologyfor fistulagram. Plan Planned procedure: Right lower extremity fistulagram Labs to be performed day of procedure: Potassium Sedation: Moderate (Conscious sedation) Prophylactic antibiotic : None Contrast: Omnipaque Additional medications for procedure: Lidocaine Position: Supine Consent: Completed Medications to discontinue (and days held): None Cytopathology presence needed: No Case Urgency:: F- Elective OUT-patient intervention within 3 days Labs: Lab Results Component Value Date HGB 11.4 (L) 09/29/2021 HCT 33.8 (L) 09/29/2021 WBC 6.1 09/29/2021 PLATELET 175 09/29/2021 INR 0.9 08/03/2018 BUN 41 (H) 09/30/2021 CREATININE 7.48 (H) 09/30/2021 ALBUMIN 4.2 11/29/2018 BILIDIR 0.2 05/15/2017 BILITOT 0.5 11/29/2018 AST 14 11/29/2018 ALT 13 11/29/2018 ALKPHOS 93 11/29/2018 Allergies: Benazepril hcl, Codeine, Hydrochlorothiazide, and Pollen extracts Medications: Current Outpatient Medications on File Prior to Visit Medication Sig Dispense Refill ??? guaiFENesin ER [...] by mouth 2 times daily. 05/05/21 per [facility], patient taking 2 capsules in the morning [...] current facility-administered medications on file prior to visit. Past medical/surgical history: Patient Active Problem List [...] face C44.329 ??? 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 IR DIALYSIS ACCESS - AV FISTULA EVALUATIONS 01/07/2021 IR Dialysis Access - AV Fistula Evaluations 01/07/2021 Sabrina Velez MD [facility] INTERVENTIONL RAD ??? IR DIALYSIS ACCESS - AV FISTULA EVALUATIONS 09/25/2021 IR Dialysis Access - AV Fistula Evaluations 09/25/2021 Kanu Apple MD [facility] INTERVENTIONL RAD ??? IR DIALYSIS ACCESS - AV FISTULA EVALUATIONS 10/10/2021 IR Dialysis Access - AV Fistula Evaluations 10/10/2021 Walt Lin MD [facility] INTERVENTIONL RAD ??? IR DIALYSIS ACCESS - TUNNELED LINE 07/30/2018 IR Dialysis Access - Tunneled Line 07/30/2018 Walt Lin MD [facility] INTERVENTIONL RAD ??? IR DIALYSIS ACCESS - TUNNELED LINE 08/30/2018 IR Dialysis Access - Tunneled Line 08/30/2018 Erwin Simon, CATRACHITO [facility] INTERVENTIONL RAD ??? IR DIALYSIS ACCESS - TUNNELED LINE 12/27/2020 IR Dialysis Access - Tunneled Line 12/27/2020 Kanu Apple MD [facility] INTERVENTIONL RAD ??? IR DIALYSIS ACCESS - TUNNELED LINE 01/23/2021 IR Dialysis Access - Tunneled Line 01/23/2021 Kanu Apple MD [facility] INTERVENTIONL RAD ??? IR DIALYSIS ACCESS - TUNNELED LINE 03/20/2021 IR Dialysis Access - Tunneled Line 03/20/2021 Tab Harmon MD [facility] INTERVENTIONL RAD ??? IR DIALYSIS ACCESS - TUNNELED LINE 09/29/2021 IR Dialysis Access - Tunneled Line 09/29/2021 Tab Harmon MD [facility] INTERVENTIONL RAD ??? IR LINE OR TUBE REMOVAL IN RECOVERY ROOM 07/31/2021 IR Line or Tube Removal in Recovery Room 07/31/2021 [facility] INTERVENTIONL RAD ??? KIDNEY TRANSPLANT KIDNEY TRANSPLANT / RECIPIENT/LT Procedure Date: 11/26/2002 ??? PRO ANASTOMOSIS, AV, ANY SITE Right 05/22/2021 AV FISTULA CREATION, DIRECT HEMODIALYSIS, ANY SITE, EG MADYSON FISTULA LOWER EXTREMITY (WRVU 11.9) performed by Odalis Elias MD at [facility] MAIN OR ??? PRO CREAT AV FISTULA, NON-AUTOGENOUS GRAFT Right 12/13/2018 PLACEMENT, AV HEMODIALYSIS GRAFT, SYNTHETIC GRAFT, UPPER EXTREMITY (WRVU 12.03) performed by Mary Garay MD at [facility] OR ??? PRO CREAT AV FISTULA, NON-AUTOGENOUS GRAFT Left 04/03/2021 PLACEMENT, AV HEMODIALYSIS GRAFT, SYNTHETIC GRAFT, UPPER EXTREMITY (WRVU 12.03) performed by Odalis Elias MD at [facility] OR ? ? PRO DEBRIDEMENT SUBCUTANEOUS TISSUE 20 SQCM/< Left 02/20/2016 DEBRIDEMENT SKIN AND SUBCU, HEAD/NECK performed by Miguel Angel Moreno MD at [facility] OR ??? PRO DECOMPRESS FOREARM, BRACH ART EXPLOR Left 04/06/2018 FASCIOTOMY, FOREARM, WITH BRACHIAL ARTERY EXPLORATION (WRVU 8.41) performed by Lida Peter MDat [facility] OR ??? PRO DIRECT REPAIR RUPTURED ANEURYSM, AXILLO-BRACHIAL ARM INCIS Left 04/06/2018 @REPAIR, RUPTURED AXILLARY OR BRACHIAL ARTERY ANEURYSM BY ARM INCISION (WRVU *) performed by Lida Peter MD at [facility] OR ??? PRO EXC PAROTD, TOTAL, UNILAT RAD NECK Left 02/05/2016 @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, TOTAL, WITH UNILATERAL RADICAL NECK DISSECTION performed by Miguel Angel Moreno MD at [facility] OR ??? PRO EXC SKIN MALIG 3.1-4CM FACE, FACIAL Left 02/05/2016 EXC MALIGNANT LESION, 3.1 TO 4.0CM, FACE performed by Miguel Angel Moreno MD at [facility] OR ? ? PRO EXC SKIN MALIG >4CM TRUNK, ARM, LEG 04/19/2012 EXC MALIGNANT LESION, MICHAEL > 4.0CM, TRUNK performed by SABRINA SANCHEZ at [facility] OR ??? PRO LAP, RADICAL NEPHRECTOMY Left 05/31/2017 @LAPAROSCOPY, RADICAL NEPHRECTOMY (WRVU 25.06) performed by Jax Mills MD at [facility] OR ??? PRO LIGATN ANGIOACCESS AV FISTULA Left 04/19/2018 LIGATION OR BANDING OF HEMODIALYSIS FISTULA OR GRAFT UPPER EXTREMITY (WRVU 6.25) performed by Odalis Elias MD at [facility] OR ??? PRO NEGATIVE PRESSURE WOUND THERAPY, LESS THAN OR EQUAL TO 50 SQCM Left 04/19/2018 DRESSING CHANGE (VAC ASSISTED) UP TO 50SQ.CM (WRVU 0.55) performed by [facility] OR ??? PRO PHLEB VEINS - EXTREM - TO 20 Right 05/22/2021 STAB PHLEBECTOMY LISBET VEINS 1 EXTREMITY 10-20 INCISIONS (WRVU 7.71) performed by Odalis Elias MD at [facility] MAIN OR ??? PRO REBL VES GRAFT, UP EXTREM Left 04/06/2018 REPAIR BLOOD VESSEL WITH GRAFT OTHER THAN VEIN, UPPER EXTREMITY (WRVU 15.83) performed by Lida Peter MD at [facility] MAIN OR ??? PRO RELIEVE PRESSURE ON NERVE(S) Left 04/06/2018 (MSURG) CARPAL TUNNEL (WRVU 4.82) performed by Silviano Sparks MD at [facility] MAIN OR ??? PRO REPAIR INTERMEDIATE S/A/T/E 2.6-7.5 CM 04/19/2012 REPAIR INTERMEDIATE WOUND, (NO HANDS OR FEET) 2.6 TO 7.5CM, UPPER EXTREMITY performed by SABRINA SANCHEZ at [facility] MAIN OR ? ? PRO REPAIR INTERMEDIATE S/A/T/E > 30.0 CM Left 04/14/2018 REPAIR INTERMEDIATE WOUND, (NO HANDS OR FEET) >30.0CM, UPPER EXTREMITY (WRVU 5) performed by Yimi Easton MD at [facility] MAIN OR ??? PRO REVISE MEDIAN N/CARPAL TUNNEL SURG Left 04/06/2018 MEDIAN NERVE DECOMPRESSION (CARPAL TUNNEL RELEASE) (WRVU 4.97) performed by Lida Peter MD [facility] OR ? ? PRO SPLIT GRFT TRUNK, ARM, LEG <100SQCM Left 04/26/2018 SPLIT THICK SKIN GRAFT,100 SQ CM OR LESS, ARMS (WRVU 9.9) performed by Silviano Sparks MD at [facility] MAIN OR ? ? PRO SPLIT GRFT, HEAD, FAC, HAND, FEET <100SQCM N/A 02/20/2016 SPLIT THICKNESS SKIN SPLIT GRAFT,100SQ CM OR LESS, NECK performed by Miguel Angel Moreno MD at [facility] MAIN OR ??? PRO SPLIT GRFT, TRUNK, ARM, LEG EA 100SQCM N/A 04/26/2018 EA.ADDITIONAL 100SQ.CM STSG (WRVU 1.72) performed by Silviano Sparks MD at [facility] MAIN OR ??? PRO UNLISTED PROCEDURE VASCULAR SURGERY Left 11/20/2015 LIGATION\REPAIR AV FISTULA performed by Camilo Ireland MD at [facility] MAIN OR ??? PRO UNLISTED PROCEDURE VASCULAR SURGERY Left 11/20/2015 EXCISION VEIN FROM HAND performed by Camilo Ireland MD at [facility] MAIN OR ??? PRO UPPER GI ENDOSCOPY, BIOPSY N/A 05/13/2017 EGD WITH BIOPSY (WRVU 2.49) performed by Aditya Barrera MD at [facility] ENDOSCOPY ??? US RENAL TRANSPLANT BIOPSY 12/31/2010 ??? US RENAL TRANSPLANT RIGHT Right 06/04/2018 US Renal Transplant Right 06/04/2018 [facility] RAD ULTRASOUND Social history and habits: Social History Tobacco Use ??? Smoking status: Former Smoker Packs/day: 0.25 Years: 1.50 Pack years: 0.37 Types: Cigarettes Quit date: 12/03/2000 Years since quittin.9 ??? Smokeless tobacco: Former User Quit date: [...] in interventional radiology the day of procedure) 10/24/2021 PANCHITO Lipscomb documented in this encounter Miscellaneous Notes * Brief Op Note - Walt Lin MD - 11/05/2021 4:13 PM EDT INTERVENTIONAL RADIOLOGY BRIEF PROCEDURE NOTE Patient Name: Christy Ambrose : 1960 Case Date: 11/05/2021 Operators: Attending: Delia Resident/Fellow/Student: none Post-operative diagnosis/Indication: THrombosed AVG Brief description of the procedure: ?? RLE AVG declot ?? Angioplasty of artery-graft anastomosis ?? Angioplasty of outflow venous stenosis ?? Stent placement in outflow venous segment Findings of the procedure: ?? THrombosed AVG ?? Artery-graft anastomosis stenosis despite repeated CAN FILLING MACHINE OPERATOR ?? Outflow venous stenosis persists despite repeated CAN FILLING MACHINE OPERATOR, stent placed with resolution ?? Slow flow at end of case despite treatment above, consider surgical revision of the artery graftanastomsis EBL: <10 mL Specimens: _N/A_ Complications: No immediate Plan/Disposition: - TO IR recovery then D/c home - Keep HD catheter in place given high likelihood of recurrent thrombosis. FULL PROCEDURE NOTE TO FOLLOW IN IMAGE REPORT documented in this encounter Plan of Treatment Not on file documented as of this encounter Procedures Procedure Name Priority Date/Time Associated Diagnosis Comments IR DIALYSIS ACCESS - AV FISTULA EVALUATIONS Routine 11/05/2021 4:18 PM EDT ESRD (end stage renal disease) [...] dialysis graft was accessed and a 7 Guinean sheath was placed. Access technique: Micropuncture set with 21 gauge needle Access direction: Toward venous anastomosis Second access Local anesthesia was administered. The dialysis graft was accessed in a second location and a 6 Guinean sheath was placed. Access technique: Micropuncture set with 21 gauge needle Access direction: Toward arterial anastomosis Intra-procedural thrombolytic injection Thrombolytic was injected within the thrombosed segment of the graft. Thrombolytic agent: tPA Thrombolytic dose: 1 mg Mechanical or aspiration thrombectomy Thrombectomy of the graft and outflow venous segments was performed. Thrombectomy device: Clot maceration and displacement with [place] balloon and Vel catheter Pulling of arterial [...] the venous outflow was performed. Angioplasty balloon(s): [employer] [place] 7 mm ??x 4 cm Findings: Moderate 5 cm long stenotic venous outflow with persistent stenosis despite multiple angioplasties with no residual waist. Angioplasty Angioplasty of the artery graft anastomosis was performed. Angioplasty balloon(s): [employer] [place] 5 mm x 4 cm Findings: Despite multiple balloon dilations without residual waist, there is persistent stenosis on both angiography performed from the arterial side and reflux angiography. Stent placement Stent placement was performed venous outflow distal to prior stent due to recurrent elastic stenosis despite multiple angioplasty attempts. Stent placed: [place]if[place] Viabahn Stent type: Covered Stent diameter (mm): [...] who have questions please contact the health hearing care practitioner that requested your imaging first. ? Electronically signed by: Walt Lin MD, [facility] ([phone]), at 11/08/2021 6:05 PM Narrative 11/08/2021 6:05 PM EDT PROCEDURE: Arteriovenous graft declot Procedural Personnel Attending physician(s): Walt Lin MD Fellow physician(s): None Resident physician(s): Moises Gaitan MD Advanced practice provider(s): None Pre-procedure diagnosis: ESRD on HD Post-procedure diagnosis: Same Indication: Thrombosed graft Additional clinical history: None Complications: No immediate complications. Procedure Note Walt Lin MD - 11/08/2021 PROCEDURE: Arteriovenous graft [...] The dialysis graft was accessed and a7 Guinean sheath was placed. Access technique: Micropuncture set with 21 gauge needle Access direction: Toward venous anastomosis Second access Local anesthesia was administered. The dialysis graft was accessed in asecond location and a 6 Guinean sheath was placed. Access technique: Micropuncture set with 21 gauge needle Access direction: Toward arterial anastomosis Intra-procedural thrombolytic injection Thrombolytic was injected within the thrombosed segment of the graft. Thrombolytic agent: tPA Thrombolytic dose: 1 mg Mechanical or aspiration thrombectomy Thrombectomy of the graft and outflow venous segments was performed. Thrombectomy device: Clot maceration and displacement with Swansea balloonand Vel catheter Pulling of arterial plug [...] the venous outflow was performed. Angioplasty balloon(s): [employer] Swan[place] 7 mm x 4 cm Findings: Moderate 5 cm long stenotic venous outflow with persistentstenosis despite multiple angioplasties with no residual waist. Angioplasty Angioplasty of the artery graft anastomosis was performed. Angioplasty balloon(s): [employer] Swan[place] 5 mm x 4 cm Findings: Despite multiple balloon dilations without residual waist, thereis persistent stenosis on both angiography performed from the arterial sideand reflux angiography. Stent placement Stent placement was performed venous outflow distal to prior stent dueto recurrent elastic stenosis despite multiple angioplasty attempts. Stent placed: Clifton Viabahn Stent type: Covered Stent diameter (mm): [...] patients who have questions please contactthe health hearing care practitioner that requested your imaging first. Luna Soloroi SECURITY LEAD IMG IR ORDERABLES documented in this encounter Visit Diagnoses Diagnosis ESRD (end stage renal disease) End stage renal disease documented in this encounter Administered Medications Inactive Administered Medications - up to 3 most recent administrations Medication Order MAR Action Action Date Dose Rate Site alteplase (Cathflo) injection 2-6 mg 2-6 mg, INTRA-CATHETER, ONCE, 1 dose, On Wed11/05/21 at 1300, For use in Interventional Radiology (IR) only for procedure with direct provider supervision and verbal order. , Angio/IR (Intra-Procedure), Routine Given 11/05/2021 1:29 PM EDT 1 mg fentaNYL (pf) (50 mcg/mL) multi-dose injection 25-50 mcg 25-50 mcg, Intravenous, EVERY 3 MIN PRN, Starting on Wed11/05/21 at 1232, Until Wed11/05/21 at 1834, Pain, per unit protocol, - Start dose [...] order., Angio/IR (Day of Procedure), Routine Given 11/05/2021 3:30 PM EDT 50 mcg Given 11/05/2021 2:51 PM EDT 25 mcg Given 11/05/2021 2:41 PM EDT 25 mcg heparin (porcine) (1,000 units/mL) injection 1,000-10,000 Units 1,000-10,000 Units, Intravenous, ONCE, 1 dose, On Wed11/05/21 at 1300, For use in Interventional Radiology (IR) only for procedure with direct provider supervision and verbal order. , Angio/IR (Intra-Procedure), Routine Given 11/05/2021 1:18 PM EDT 3,000 Units iohexoL (Omnipaque) (350 mg/mL) solution 1-400 mL 1-400 mL, Intravenous, ONCE, 1 dose, On Wed11/05/21 at 1300, For intra-procedural use by proceduralist., Angio/IR (Day of Procedure), Routine Given 11/05/2021 1:00 PM EDT 110 mLs lidocaine (Xylocaine) 1% (10 mg/mL) injection 10 mg 10 mg, Subcutaneous, ONCE, 1 dose, On Wed11/05/21 at 1300, For use in Interventional Radiology (IR) only for procedure with direct provider supervision and verbal order., Angio/IR (Day of Procedure), Routine Given 11/05/2021 1:28 PM EDT 10 mg sodium chloride 0.9 % (flush) (BD PosiFlush Normal Saline 0.9) flush 5 mL 5 mL, Intravenous, 2 TIMES DAILY, First dose on Wed11/05/21 at 1300, Until Discontinued, Angio/IR (Day of Procedure), Routine Given 11/05/2021 1:28 PM EDT 5 mLs documented in this encounter Care Teams Air Tester Relationship Specialty Start Date End Date Carroll Fuentes DO [address] [place] [address] PCP - General 09/23/11 10/20/22 documented as of this encounter
--- OUTSIDE RECORDS SUMMARY | 2024-04-22 10:52 | XMS_ITS | Encounter Summary ---
Author Organization [facility] [place] [address] Care Team Providers Care Patient Registrar Name Role Phone AlfredoCarroll geiger Primary Care Provider [phone] Encounter Details Date Type Department Care Team (Late st Contact Info) Description 11/07/2021 12:30 PM EDT Tech [place] [phone] Nicolás Marte ESRD (end stage renal disease) on dialysis; Thrombosis of arteriovenous fistula, initial encounter Social History Tobacco Use Types Packs/Day Years [...] Procedure Name Priority Date/Time Associated Diagnosis Comments AVF/ESTABLISHED ACCESS EVALUATION Routine 11/07/2021 12:33 PM EDT ESRD (end stage renal disease) on dialysis Thrombosis of arteriovenous fistula, initial encounter documented in this encounter Results * AVF/Established Access Evaluation (11/07/2021 12:33 PM EDT) VB Text Report Department: Vascular Surgery Lab Patient: [id number] (CHRISTY AMBROSE) CPT: 85865 Referring Physician: ARIES TONG ?? Phone: Indications: Right lower extremity SFA to SFV AVG, loop graft with counterclockwise flow, 10/10/21 declot and stenting of AVG, ? patency Findings: Right ?PSV (cm/s) ??EDV (cm/s) ??Flow (ml/min) ?? Inflow Artery, Site #1 ? 56 ? 0 ?132 ?? Graft, Inflow Anastomosis ?25 ? 0 ? Graft, ??Proximal ?0 ? 0 ? Graft, Mid ?0 ? 0 ? Graft, Distal ? 0 ? 0 ? Interpretation: RIGHT: Occluded superficial femoral artery to superficial femoral vein arterial venous graft. Patent inflow artery with triphasic flow and no evidence of hemodynamically significant stenosis. Patent outflow vein with normal respirophasic Doppler waveforms. NOTE: Unable to clearly visualize stented portion of the arteriovenous graft and the outflow anastomosis on today's exam. Comparison: Significant progression when compared to the previous exam on 06/06/21 where the arteriovenous graft was patent. Electronically Signed by: PETRONA DOYLE on 2021-11-10 08:49:22 AM [facility] VB Text Report End of Report [facility] 11/07/2021 12:3 3 PM EDT Aries Tong MD VASCULAR ORDERA BLES [facility] documented in this encounter Visit Diagnoses Diagnosis ESRD (end stage renal disease) on dialysis End stage renal disease Thrombosis of arteriovenous fistula, initial encounter documented in this encounter Care Teams Patient Registrar Relationship Specialty Start Date End Date Carroll Fuentes DO [address] [place] [address] PCP - General 09/23/11 10/20/22 documented as of this encounter
--- OUTSIDE RECORDS SUMMARY | 2024-04-22 10:52 | XMS_ITS | Encounter Summary ---
[place] [address] Care Team Providers Care Tile Finisher Name Role Phone AlfredoCarroll allison Primary Care Provider [phone] Reason for Referral * Diagnostic Test (Routine) - Closed Specialty Diagnoses / Procedures Referred By Shashi ko Referred To Contact Radiology Diagnoses ESRD (end stage renal disease) Procedures IR Dialysis Access - AV Fistula Evaluations Luna Solorio GRANITE BLOCK PAVER [facility] [place] [address] [place] [address] Referral ID Status Reason Start Date Expiration Date V isits Requested Visits Authorized [id number] Closed Specialty Service Requested 09/24/2021 03/27/2023 1 1 Encounter Details Date Type Department Care Team (Late st Contact Info) Description 09/24/2021 Orders Only [place] [address] Luna Solorio APRN [facility] [place] [address] ESRD (end stage renal disease) [...] IR Dialysis Access - AV Fistula Evaluations (09/25/2021 9:47 AM EDT) Anatomical Region Laterality Modality Abdomen X-Ray Angiograph y Narrative 09/26/2021 8:42 AM EDT IR Procedure Note Procedure: AVG fistulagram with declot History/indication: ??61 y.o. male with PMH of ESRD s/p transplant in 2002 with right SFA-SFV loop AVG (counterclockwise flow of blood in graft) on 05/2021 with 4-7mm tapered PTFE presenting with occluded AVG. Sedation: The patient received split doses of intravenous fentanyl and versed from the IR nurse while pulse, pressure, end tidal CO2 parameters and oxygen saturation were continuously monitored. Technique: ?? After obtaining informed consent, the right thigh and AV graft were prepped and draped in a sterile fashion. The arterial limb of the AVG was accessed under US guidance, directed toward the venous outflow. A short 6 Fr sheath was placed. The venous anastomosis was crossed using a 4 Fr Berenstein catheter and angled glide wire. 2cc of TPA was instilled in 0.2cc aliquots from the venous anastomosis back towards the 6 Fr sheath. The anastomosis was dilated using an 8 mm high pressure CONSTRUCTION TECHNICIAN balloon (28 gold, 3 minutes). CONSTRUCTION TECHNICIAN was performed in the outflow limb back to the sheath with the 8mm balloon inflated to 6 GOLD in a step-bianchi fashion. A second access was obtained in the venous limb, directed toward the arterial anastomosis. The 4 Fr angled catheter and J wire were used to access the downstream femoral artery. 2cc of TPA was instilled in 0.2cc aliquots from the arterial anastomosis to the first 6 Fr sheath. Over the wire, a 5mm x 2cm balloon was advanced to the arterial anastomosis and CONSTRUCTION TECHNICIAN performed back the first sheath. The arterial plug was mobilized with an OTW Vel catheter pulled back to the venous anastomosis. Interval angiography was performed. The OTW Vel catheter was then advanced into the arterial limb directed towards the venous anastomosis and thrombus mobilized into the outflow vein. A completion AV graft angiogram showed a patent access and venous outflow. A thrill was present throughout the AVG. The sheath were then removed and hemostasis achieved with manual compression. The patient tolerated the procedure well. Complications: ?None immediate; ??EBL=10cc Medications: ??1% lidocaine (<10 cc) Fentanyl 100 mcg IV, Heparin IV 3000 units, TPA 4 mg intra-catheter Contrast: 35cc Omnipaque 350 Fluoroscopy time: 8.6min Findings: -Ultrasound of the right femoral AV graft demonstrates thrombosis. -Angiography post declot demonstrates widely patent arterial anastomosis and arterial limb. ??Short segment moderate stenosis in the venous limb and filling defects in venous limb noted consistent with residual thrombus. -Angiography post additional Vel balloon sweep demonstrates widely patent venous limb and venous anastomosis. Palpable thrill on exam. Impression: Thrombosed right groin AVG; antegrade flow resored following TPA, balloon maceration, and venous anastomotic CONSTRUCTION TECHNICIAN. ?? IR Resident: Oliver Andersen MD Attending: Greyson Apple MD (I was present and scrubbed for the entire procedure) I was present during the intraservice time as documented by the IR Nurse. Luna Lopez Lyndsey GRANITE BLOCK PAVER IMG IR ORDERABLES documented in this encounter Visit Diagnoses Diagnosis ESRD (end stage renal disease) End stage renal disease Pre-op testing Preoperative examination, unspecified ESRD (end stage renal disease) on dialysis End stage renal disease ESRD (end stage renal disease) End stage renal disease CKD (chronic kidney disease) stage 5, GFR less than 15 ml/min Chronic kidney disease, Stage V documented in this encounter Care Teams Tile Finisher Relationship Specialty Start Date End Date Carroll Fuentes DO [address] [place] [address] PCP - General 09/23/11 10/20/22 documented as of this encounter
--- OUTSIDE RECORDS SUMMARY | 2024-04-22 10:52 | XMS_ITS | Encounter Summary ---
Author Organization [facility] [place] [address] Care Team Providers Care Apparel Merchandiser Name Role Phone Alfredo, Carroll MIX Primary Care Provider [phone] Encounter Details Date Type Department Care Team (Late st Contact Info) Description 11/14/2021 Telephone [place] [phone] Tessa Flores MSW [facility] [place] [address] Social History Tobacco Use Types Packs/Day Years [...] on file documented as of this encounter Progress Notes * Tessa Flores MSW - 11/14/2021 12:39 PM EDT Worker received a call from Adama's brother and guardian, Lucas [phone] asking what treatment for COVID his brother could have since he is a kidney recipient. Worker deferred to the medical providers to answer this question and took his number so someone could call him back. documented in this encounter Plan of Treatment Not on file documented as of this encounter Visit Diagnoses Not on filedocumented in this encounter Care Teams Apparel Merchandiser Relationship Specialty Start Date End Date Carroll Fuentes DO [address] [place] [address] PCP - General 09/23/11 10/20/22 documented as of this encounter
--- OUTSIDE RECORDS SUMMARY | 2024-04-22 10:52 | XMS_ITS | Encounter Summary ---
[place] [address] Care Team Providers Care School Services Officer Name Role Phone AlfredoCarroll allison Primary Care Provider [phone] Reason for Referral * Diagnostic Test (Routine) - Closed Specialty Diagnoses / Procedures Referred By Shashi ko Referred To Contact Radiology Diagnoses ESRD (end stage renal disease) Procedures IR Dialysis Access - AV Fistula Evaluations Luna Solorio [facility] [address] [address] [place] [address] Referral ID Status Reason Start Date Expiration Date V isits Requested Visits Authorized [id number] Closed Specialty Service Requested 10/02/2021 04/04/2023 1 1 Reason for Visit * Diagnostic Test (Routine) - Closed Specialty Diagnoses / Procedures Referred By Shashi ko Referred To Contact Radiology Diagnoses ESRD (end stage renal disease) Procedures IR Dialysis Access - AV Fistula Evaluations Luna Solorio [facility] [place] [address] [place] [address] Referral ID Status Reason Start Date Expiration Date V isits Requested Visits Authorized [id number] Closed Specialty Service Requested 10/02/2021 04/04/2023 1 1 Encounter Details Date Type Department Care Team (Latest Contact Info) Description 10/10/2021 12:39 PM EDT - 10/10/2021 11:59 PM EDT Hospital [place] [address] Luna Solorio [facility] [place] [address] [place] [address] ESRD (end stage renal disease) on dialysis; ESRD (end stage renal disease) Discharge Disposition: [...] Sign Reading Time Taken Comments Blood Pressure 138/52 10/10/2021 7:30 PM EDT Pulse 52 10/10/2021 5:27 PM EDT Temperature 36.1 ??C (97 ??F) 10/10/2021 5:27 PM EDT Respiratory Rate 15 10/10/2021 7:30 PM EDT Oxygen Saturation 98% 10/10/2021 7:30 PM EDT Inhaled Oxygen Concentration - - Weight - - Height - - Body Mass Index - - documented in this encounter Discharge Instructions * Discharge Instructions* Kanu Blevins RN - 10/10/2021 3:[address] [facility] Vascular and Interventional Radiology Discharge Instructions after [...] is during regular office hours, please call [phone]. If it is after regular office hours, or on weekends or holidays, please call [phone] and ask to speak to the [employer] councilperson for Interventional Radiology. You have received medication [...] as of this encounter Progress Notes * Odalis Chang RN - 10/10/2021 7:00 PM EDT ANGIO NURSING DATABASE Name: CHRISTY AMBROSE Date of : 1960 AGE: 61 y.o. Address: [address] [address] (home) Mobile: Telephone Information: Referring Provider: Luna Solorio REASON FOR VISIT: Order Questions Answers Where will study be performed? [facility] Radiology [120] Laterality Right Is the patient on anticoagulant / antiplatelet therapy ? Aspirin Reason for exam and clinical history: Clotted R thigh AVG, schedule after dialysis, check K prior to procedure Planned procedure: Tunneled HD line Labs to [...] face C44.329 ??? 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 [...] run SB?? 09/29/21 Tunneled HD line placement?? Fentanyl 100 mcg IV, tolerated well 10/1021 Fistulogram: 3mg TPA, ballooning, stent at graph-vein anastamosis ??Versed 2mg, Fentanyl 200mcg, Alteplase 3mg, heparin 5000U ? 1410 to procedure room 1 via stretcher. Onto table supine. All monitors, O2, safety strap in place.Meds per protocol. Purse string suture x 2 to upper right leg 1744 MD Polanco and Kylie at bedside to evaluate. Some blood oozing from site. Sutures remain in place. -jpm 1829 Recheck of sutures by MD Polanco, lateral suture removed and gauze dressing applied. Medial suture remains in place.-jpm 1899 Medial suture removed by MD Guy. Bandaids placed. Clean and dry.-jpm 194 Pt transported to [facility] to waiting patrol driver, Moises. jpm 2039 Report to Leslie CORRALES @ [facility] Laboratory Results: Lab Results Component Value Date INR 0.9 08/03/2018 Lab Results Component Value Date CREATININE 7.48 (H) 09/30/2021 Lab Results Component Value Date K 6.1 (CRIT) 09/30/2021 Lab Results Component Value Date PLATELET 175 09/29/2021 documented in this encounter H&P Notes * Aaron Duran PA - 10/10/2021 12:54 PM EDT INTERVENTIONAL RADIOLOGY FOCUSED H&P: Procedure: [...] Source Note - Aaron Duran PA - 10/03/2021 11:19 AM EDT Interventional Radiology Focused Pre-procedure H&P: PCP: Carroll Fuentes DO Referring Provider: Luna Solorio Procedure indication: ESRD, thrombosed AVG IR workflow: Procedure request received through Interventional Radiology eDH order queue. Order Questions Answers Where will study be performed? [facility] Radiology [120] Laterality Right Is the patient on anticoagulant / antiplatelet therapy ? Aspirin Reason for exam and clinical history: Clotted R thigh AVG, schedule after dialysis, check K prior to procedure History of present illness: Per chart review, Christy Ginna Ambrose is a 61 y.o. male is a 61 y.o. 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 This graft was recently evaluated on 09/25/21 and found to be thrombosed s/p TPA administration, venous anastomosis COSMETICS COUNTER MANAGER to 8mm and Vel balloon sweep who then received dialysis same day for hyperkalemia and then represented on 09/29/21 for tunneled HD line placement in the setting of rethrombosed AVG. Remainder of patient's medical and surgical history, [...] run SB?? 09/29/21 Tunneled HD line placement?? Fentanyl 100 mcg IV, tolerated well ? Imaging: Assessment: 61 y.o. 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 05/05/21 per [facility], patient taking 2 capsules in the [...] face C44.329 ??? 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 [facility] current use of immunosuppressive drug Z79.899 ??? [...] AV Fistula Evaluations 11/30/2019 Sabrina Velez MD [facility] INTERVENTIONL RAD ??? IR DIALYSIS ACCESS - AV FISTULA EVALUATIONS 01/07/2021 IR Dialysis Access - AV Fistula Evaluations 01/07/2021 Sabrina Velez MD [facility] INTERVENTIONL RAD ??? IR DIALYSIS ACCESS - AV FISTULA EVALUATIONS 09/25/2021 IR Dialysis Access - AV Fistula Evaluations 09/25/2021 Kanu Apple MD [facility] INTERVENTIONL RAD ??? IR DIALYSIS ACCESS - TUNNELED LINE 07/30/2018 IR Dialysis Access - Tunneled Line 07/30/2018 Walt Lin MD [facility] INTERVENTIONL RAD ??? IR DIALYSIS ACCESS - TUNNELED LINE 08/30/2018 IR Dialysis Access - Tunneled Line 08/30/2018 Erwin Simon, CATRACHITO [facility] INTERVENTIONL RAD ??? IR DIALYSIS ACCESS - TUNNELED LINE 12/27/2020 IR Dialysis Access - Tunneled Line 12/27/2020 Kanu Apple MD [facility] INTERVENTIONL RAD ??? IR DIALYSIS ACCESS - TUNNELED LINE 01/23/2021 IR Dialysis Access - Tunneled Line 01/23/2021 Kanu Apple MD [facility] INTERVENTIONL RAD ??? IR DIALYSIS ACCESS - TUNNELED LINE 03/20/2021 IR Dialysis Access - Tunneled Line 03/20/2021 Tab Harmon MD [facility] INTERVENTIONL RAD ??? IR LINE OR TUBE REMOVAL IN RECOVERY ROOM 07/31/2021 IR Line or Tube Removal in Recovery Room 07/31/2021 [facility] INTERVENTIONL RAD ??? KIDNEY TRANSPLANT KIDNEY TRANSPLANT / RECIPIENT/LT Procedure Date: 11/26/2002 ??? PRO ANASTOMOSIS, AV, ANY SITE Right 05/22/2021 AV FISTULA CREATION, DIRECT HEMODIALYSIS, ANY SITE, EG MADYSON FISTULA LOWER EXTREMITY (WRVU 11.9) performed by Odalis Elias MD at [facility] MAIN OR ??? PRO CREAT AV FISTULA, NON-AUTOGENOUS GRAFT Right 12/13/2018 PLACEMENT, AV HEMODIALYSIS GRAFT, SYNTHETIC GRAFT, UPPER EXTREMITY (WRVU 12.03) performed by Mary Garay MD at [facility] OR ??? PRO CREAT AV FISTULA, NON-AUTOGENOUS GRAFT Left 04/03/2021 PLACEMENT, AV HEMODIALYSIS GRAFT, SYNTHETIC GRAFT, UPPER EXTREMITY (WRVU 12.03) performed by Odalis Elias MD at [facility] MAIN OR ? ? PRO DEBRIDEMENT SUBCUTANEOUS TISSUE 20 SQCM/< Left 02/20/2016 DEBRIDEMENT SKIN AND SUBCU, HEAD/NECK performed by Miguel Angel Moreno MD at [facility] MAIN OR ??? PRO DECOMPRESS FOREARM, BRACH ART EXPLOR Left 04/06/2018 FASCIOTOMY, FOREARM, WITH BRACHIAL ARTERY EXPLORATION (WRVU 8.41) performed by Lida Peter, MDat [facility] MAIN OR ??? PRO DIRECT REPAIR RUPTURED ANEURYSM, AXILLO-BRACHIAL ARM INCIS Left 04/06/2018 @REPAIR, RUPTURED AXILLARY OR BRACHIAL ARTERY ANEURYSM BY ARM INCISION (WRVU *) performed by Lida Peter MD at [facility] MAIN OR ??? PRO EXC PAROTD, TOTAL, UNILAT RAD NECK Left 02/05/2016 @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, TOTAL, WITH UNILATERAL RADICAL NECK DISSECTION performed by Miguel Angel Moreno MD at [facility] MAIN OR ??? PRO EXC SKIN MALIG 3.1-4CM FACE, FACIAL Left 02/05/2016 EXC MALIGNANT LESION, 3.1 TO 4.0CM, FACE performed by Miguel Angel Moreno MD at [facility] MAIN OR ? ? PRO EXC SKIN MALIG >4CM TRUNK, ARM, LEG 04/19/2012 EXC MALIGNANT LESION, MICHAEL > 4.0CM, TRUNK performed by SABRINA SANCHEZ at [facility] OR ??? PRO LAP, RADICAL NEPHRECTOMY Left 05/31/2017 @LAPAROSCOPY, RADICAL NEPHRECTOMY (WRVU 25.06) performed by Jax Mills MD at [facility] OR ??? PRO LIGATN ANGIOACCESS AV FISTULA Left 04/19/2018 LIGATION OR BANDING OF HEMODIALYSIS FISTULA OR GRAFT UPPER EXTREMITY (WRVU 6.25) performed by Odalis Elias MD at [facility] MAIN OR ??? PRO NEGATIVE PRESSURE WOUND THERAPY, LESS THAN OR EQUAL TO 50 SQCM Left 04/19/2018 DRESSING CHANGE (VAC ASSISTED) UP TO 50SQ.CM (WRVU 0.55) performed by Odalis Elias MD [facility] MAIN OR ??? PRO PHLEB VEINS - EXTREM - TO 20 Right 05/22/2021 STAB PHLEBECTOMY LISBET VEINS 1 EXTREMITY 10-20 INCISIONS (WRVU 7.71) performed by Odalis Elias MD at [facility] MAIN OR ??? PRO REBL VES GRAFT, UP EXTREM Left 04/06/2018 REPAIR BLOOD VESSEL WITH GRAFT OTHER THAN VEIN, UPPER EXTREMITY (WRVU 15.83) performed by Lida Peter MD at [facility] MAIN OR ??? PRO RELIEVE PRESSURE ON NERVE(S) Left 04/06/2018 (MSURG) CARPAL TUNNEL (WRVU 4.82) performed by Silviano Sparks MD at [facility] MAIN OR ??? PRO REPAIR INTERMEDIATE S/A/T/E 2.6-7.5 CM 04/19/2012 REPAIR INTERMEDIATE WOUND, (NO HANDS OR FEET) 2.6 TO 7.5CM, UPPER EXTREMITY performed by SABRINA SANCHEZ at [facility] MAIN OR ? ? PRO REPAIR INTERMEDIATE S/A/T/E > 30.0 CM Left 04/14/2018 REPAIR INTERMEDIATE WOUND, (NO HANDS OR FEET) >30.0CM, UPPER EXTREMITY (WRVU 5) performed by Yimi Easton MD at [facility] MAIN OR ??? PRO REVISE MEDIAN N/CARPAL TUNNEL SURG Left 04/06/2018 MEDIAN NERVE DECOMPRESSION (CARPAL TUNNEL RELEASE) (WRVU 4.97) performed by Lida Peter MD [facility] MAIN OR ? ? PRO SPLIT GRFT TRUNK, ARM, LEG <100SQCM Left 04/26/2018 SPLIT THICK SKIN GRAFT,100 SQ CM OR LESS, ARMS (WRVU 9.9) performed by Silviano Sparks MD at [facility] MAIN OR ? ? PRO SPLIT GRFT, HEAD, FAC, HAND, FEET <100SQCM N/A 02/20/2016 SPLIT THICKNESS SKIN SPLIT GRAFT,100SQ CM OR LESS, NECK performed by Miguel Angel Moreno MD at [facility] OR ??? PRO SPLIT GRFT, TRUNK, ARM, LEG EA 100SQCM N/A 04/26/2018 EA.ADDITIONAL 100SQ.CM STSG (WRVU 1.72) performed by Silviano Sparks MD at [facility] MAIN OR ??? PRO UNLISTED PROCEDURE VASCULAR SURGERY Left 11/20/2015 LIGATION\REPAIR AV FISTULA performed by Camilo Ireland MD at [facility] MAIN OR ??? PRO UNLISTED PROCEDURE VASCULAR SURGERY Left 11/20/2015 EXCISION VEIN FROM HAND performed by Camilo Ireland MD at [facility] MAIN OR ??? PRO UPPER GI ENDOSCOPY, BIOPSY N/A 05/13/2017 EGD WITH BIOPSY (WRVU 2.49) performed by Aditya Barrera MD at [facility] ENDOSCOPY ??? US RENAL TRANSPLANT BIOPSY 12/31/2010 ??? US RENAL TRANSPLANT RIGHT Right 06/04/2018 US Renal Transplant Right 06/04/2018 [facility] RAD ULTRASOUND Social history and habits: Social History Tobacco Use ??? Smoking status: Former Smoker Packs/day: 0.25 Years: 1.50 Pack years: 0.37 Types: Cigarettes Quit date: 12/03/2000 Years since quittin.8 ??? Smokeless tobacco: Former User Quit date: 04/14/2001 Vaping Use ??? Vaping Use: Never used Substance Use Topics ??? Alcohol use: No ??? Drug use: No Types: Marijuana Comment: havent in /1995 Significant family history: Family History Problem Relation Age of Onset ??? Pancreatitis Father Pertinent ROS: as per HPI Physical exam: Pending (to be performed in interventional radiology the day of procedure) ASA: Pending (to be assessed in interventional radiology the day of procedure) Mallampati class: Pending (to be assessed in interventional radiology the day of procedure) 10/03/2021 PANCHITO Wallace * Aaron Duran PA - 10/03/2021 11:19 AM EDT Interventional Radiology Focused Pre-procedure H&P: PCP: Carroll Fuentes DO Referring Provider: Luna Solorio Procedure indication: ESRD, thrombosed AVG IR workflow: Procedure request received through Interventional Radiology eDH order queue. Order Questions Answers Where will study be performed? [facility] Radiology [120] Laterality Right Is the patient on anticoagulant / antiplatelet therapy ? Aspirin Reason for exam and clinical history: Clotted R thigh AVG, schedule after dialysis, check K prior to procedure History of present illness: Per chart review, Christy Ambrose is a 61 y.o. male is a 61 y.o. 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 This graft was recently evaluated on 09/25/21 and found to be thrombosed s/p TPA administration, venous anastomosis COSMETICS COUNTER MANAGER to 8mm and Vel balloon sweep who then received dialysis same day for hyperkalemia and then represented on 09/29/21 for tunneled HD line placement in the setting of rethrombosed AVG. Remainder of patient's medical and surgical history, [...] run SB?? 09/29/21 Tunneled HD line placement?? Fentanyl 100 mcg IV, tolerated well ? Imaging: Assessment: 61 y.o. 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 [facility] current use of immunosuppressive drug Z79.899 ??? [...] AV Fistula Evaluations 11/30/2019 Sabrina Velez MD [facility] INTERVENTIONL RAD ??? IR DIALYSIS ACCESS - AV FISTULA EVALUATIONS 01/07/2021 IR Dialysis Access - AV Fistula Evaluations 01/07/2021 Sabrina Velez MD [facility] INTERVENTIONL RAD ??? IR DIALYSIS ACCESS - AV FISTULA EVALUATIONS 09/25/2021 IR Dialysis Access - AV Fistula Evaluations 09/25/2021 Knau Appel MD [facility] INTERVENTIONL RAD ??? IR DIALYSIS ACCESS - TUNNELED LINE 07/30/2018 IR Dialysis Access - Tunneled Line 07/30/2018 Walt Lin MD [facility] INTERVENTIONL RAD ??? IR DIALYSIS ACCESS - TUNNELED LINE 08/30/2018 IR Dialysis Access - Tunneled Line 08/30/2018 Erwin Simon, CATRACHITO [facility] INTERVENTIONL RAD ??? IR DIALYSIS ACCESS - TUNNELED LINE 12/27/2020 IR Dialysis Access - Tunneled Line 12/27/2020 Kanu Apple MD [facility] INTERVENTIONL RAD ??? IR DIALYSIS ACCESS - TUNNELED LINE 01/23/2021 IR Dialysis Access - Tunneled Line 01/23/2021 Kanu Apple MD [facility] INTERVENTIONL RAD ??? IR DIALYSIS ACCESS - TUNNELED LINE 03/20/2021 IR Dialysis Access - Tunneled Line 03/20/2021 Tab Harmon MD [facility] INTERVENTIONL RAD ??? IR LINE OR TUBE REMOVAL IN RECOVERY ROOM 07/31/2021 IR Line or Tube Removal in Recovery Room 07/31/2021 [facility] INTERVENTIONL RAD ??? KIDNEY TRANSPLANT KIDNEY TRANSPLANT / RECIPIENT/LT Procedure Date: 11/26/2002 ??? PRO ANASTOMOSIS, AV, ANY SITE Right 05/22/2021 AV FISTULA CREATION, DIRECT HEMODIALYSIS, ANY SITE, EG MADYSON FISTULA LOWER EXTREMITY (WRVU 11.9) performed by Odalis Elias MD at [facility] MAIN OR ??? PRO CREAT AV FISTULA, NON-AUTOGENOUS GRAFT Right 12/13/2018 PLACEMENT, AV HEMODIALYSIS GRAFT, SYNTHETIC GRAFT, UPPER EXTREMITY (WRVU 12.03) performed by Mary Garay MD at [facility] MAIN OR ??? PRO CREAT AV FISTULA, NON-AUTOGENOUS GRAFT Left 04/03/2021 PLACEMENT, AV HEMODIALYSIS GRAFT, SYNTHETIC GRAFT, UPPER EXTREMITY (WRVU 12.03) performed by Odalis Elias MD at [facility] MAIN OR ? ? PRO DEBRIDEMENT SUBCUTANEOUS TISSUE 20 SQCM/< Left 02/20/2016 DEBRIDEMENT SKIN AND SUBCU, HEAD/NECK performed by Miguel Angel Morneo MD at [facility] OR ??? PRO DECOMPRESS FOREARM, BRACH ART EXPLOR Left 04/06/2018 FASCIOTOMY, FOREARM, WITH BRACHIAL ARTERY EXPLORATION (WRVU 8.41) performed by Lida Peter MDat [facility] OR ??? PRO DIRECT REPAIR RUPTURED ANEURYSM, AXILLO-BRACHIAL ARM INCIS Left 04/06/2018 @REPAIR, RUPTURED AXILLARY OR BRACHIAL ARTERY ANEURYSM BY ARM INCISION (WRVU *) performed by Lida Peter MD at [facility] OR ??? PRO EXC PAROTD, TOTAL, UNILAT RAD NECK Left 02/05/2016 @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, TOTAL, WITH UNILATERAL RADICAL NECK DISSECTION performed by Miguel Angel Moreno MD at [facility] OR ??? PRO EXC SKIN MALIG 3.1-4CM FACE, FACIAL Left 02/05/2016 EXC MALIGNANT LESION, 3.1 TO 4.0CM, FACE performed by Miguel Angel Moreno MD at [facility] OR ? ? PRO EXC SKIN MALIG >4CM TRUNK, ARM, LEG 04/19/2012 EXC MALIGNANT LESION, MICHAEL > 4.0CM, TRUNK performed by SABRINA SANCHEZ at [facility] OR ??? PRO LAP, RADICAL NEPHRECTOMY Left 05/31/2017 @LAPAROSCOPY, RADICAL NEPHRECTOMY (WRVU 25.06) performed by Jax Mills MD at [facility] OR ??? PRO LIGATN ANGIOACCESS AV FISTULA Left 04/19/2018 LIGATION OR BANDING OF HEMODIALYSIS FISTULA OR GRAFT UPPER EXTREMITY (WRVU 6.25) performed by Odalis Elias MD at [facility] OR ??? PRO NEGATIVE PRESSURE WOUND THERAPY, LESS THAN OR EQUAL TO 50 SQCM Left 04/19/2018 DRESSING CHANGE (VAC ASSISTED) UP TO 50SQ.CM (WRVU 0.55) performed by Odalis Elias MD [facility] OR ??? PRO PHLEB VEINS - EXTREM - TO 20 Right 05/22/2021 STAB PHLEBECTOMY LISBET VEINS 1 EXTREMITY 10-20 INCISIONS (WRVU 7.71) performed by Odalis Elias MD at [facility] OR ??? PRO REBL VES GRAFT, UP EXTREM Left 04/06/2018 REPAIR BLOOD VESSEL WITH GRAFT OTHER THAN VEIN, UPPER EXTREMITY (WRVU 15.83) performed by Lida Peter MD at [facility] MAIN OR ??? PRO RELIEVE PRESSURE ON NERVE(S) Left 04/06/2018 (MSURG) CARPAL TUNNEL (WRVU 4.82) performed by Silviano Sparks MD at [facility] MAIN OR ??? PRO REPAIR INTERMEDIATE S/A/T/E 2.6-7.5 CM 04/19/2012 REPAIR INTERMEDIATE WOUND, (NO HANDS OR FEET) 2.6 TO 7.5CM, UPPER EXTREMITY performed by SABRINA SANCHEZ at [facility] OR ? ? PRO REPAIR INTERMEDIATE S/A/T/E > 30.0 CM Left 04/14/2018 REPAIR INTERMEDIATE WOUND, (NO HANDS OR FEET) >30.0CM, UPPER EXTREMITY (WRVU 5) performed by Yimi Easton MD at [facility] MAIN OR ??? PRO REVISE MEDIAN N/CARPAL TUNNEL SURG Left 04/06/2018 MEDIAN NERVE DECOMPRESSION (CARPAL TUNNEL RELEASE) (WRVU 4.97) performed by Lida Peter MD [facility] OR ? ? PRO SPLIT GRFT TRUNK, ARM, LEG <100SQCM Left 04/26/2018 SPLIT THICK SKIN GRAFT,100 SQ CM OR LESS, ARMS (WRVU 9.9) performed by Silviano Sparks MD at [facility] MAIN OR ? ? PRO SPLIT GRFT, HEAD, FAC, HAND, FEET <100SQCM N/A 02/20/2016 SPLIT THICKNESS SKIN SPLIT GRAFT,100SQ CM OR LESS, NECK performed by Miguel Angel Moreno MD at [facility] MAIN OR ??? PRO SPLIT GRFT, TRUNK, ARM, LEG EA 100SQCM N/A 04/26/2018 EA.ADDITIONAL 100SQ.CM STSG (WRVU 1.72) performed by Silviano Sparks MD at [facility] MAIN OR ??? PRO UNLISTED PROCEDURE VASCULAR SURGERY Left 11/20/2015 LIGATION\REPAIR AV FISTULA performed by Camilo Ireland MD at [facility] MAIN OR ??? PRO UNLISTED PROCEDURE VASCULAR SURGERY Left 11/20/2015 EXCISION VEIN FROM HAND performed by Camilo Ireland MD at [facility] MAIN OR ??? PRO UPPER GI ENDOSCOPY, BIOPSY N/A 05/13/2017 EGD WITH BIOPSY (WRVU 2.49) performed by Aditya Barrera MD at [facility] ENDOSCOPY ??? US RENAL TRANSPLANT BIOPSY 12/31/2010 ??? US RENAL TRANSPLANT RIGHT Right 06/04/2018 US Renal Transplant Right 06/04/2018 [facility] RAD ULTRASOUND Social history and [...] in interventional radiology the day of procedure) 10/03/2021 PANCHITO Wallace documented in this encounter Miscellaneous Notes * Brief Op Note - Walt Lin MD - 10/10/2021 5:18 PM EDT INTERVENTIONAL RADIOLOGY BRIEF PROCEDURE NOTE Patient Name: Christy Ambrose : 1960 Case Date: 10/10/2021 Operators: Attending: Delia Resident/Fellow/Student: none Post-operative diagnosis/Indication: throambosed RLE AVG Brief description of the procedure: ?? RLE AVG declot and stent placment Findings of the procedure: ?? Thrombosed AVG ?? Successful declot ?? Plcement of 7 mm x 5 cm covered stent at graft vein anastoosis ?? Woggle stitch at both sheath sites EBL: <10 mL Specimens: _N/A_ Complications: No immediate Plan/Disposition: - TO IR recovery - Suture release in recovery before discharge FULL PROCEDURE NOTE TO FOLLOW IN IMAGE REPORT documented in this encounter Plan of Treatment Not on file documented as of this encounter Procedures Procedure Name Priority Date/Time Associated Diagnosis Comments IR DIALYSIS ACCESS - AV FISTULA EVALUATIONS Routine 10/10/2021 5:24 PM EDT ESRD (end stage renal disease) HC POTASSIUM Routine 10/10/2021 1:12 PM EDT ESRD (end stage renal disease) on dialysis documented in this encounter Results * IR Dialysis Access - AV Fistula Evaluations (10/10/2021 5:24 PM EDT) Anatomical Region Laterality Modality Abdomen X-Ray Angiograph y Impressions 10/11/2021 5:47 PM EDT Successful declot of arterial venous graft with placement of stent graft at the graft vein anastomosis. Plan: The graft can be used for dialysis immediately. PROCEDURE SUMMARY: - Access of dialysis graft [...] including cutaneous antisepsis. Anesthesia/sedation Level of anesthesia/sedation: Moderate sedation (conscious sedation) Anesthesia/sedation administered by: Independent trained observer under attending supervision with continuous monitoring of the patients level of consciousness and physiologic status Total intra-service sedation time (minutes): See electronic medical record Initial dialysis graft evaluation Dialysis graft side: Right Dialysis graft type: Femoral loop graft Initial graft palpation: No pulse, no thrill Access Local anesthesia was administered. The dialysis graft was accessed and a 7 [place] sheath was placed. Access technique: Micropuncture set with 21 gauge needle Access direction: Toward venous anastomosis Second access Local anesthesia was administered. The dialysis graft was accessed in a second location and a 6 [place] sheath was placed. Access technique: Micropuncture set with 21 gauge needle Access direction: Toward arterial anastomosis Initial angiography Initial angiography of the central veins was performed. Findings: Thrombosis of the graft and initial outflow vein to the region of the RIGHT common femoral vein. The RIGHT common femoral vein, iliac veins, and IVC are widely patent. After angioplasty and clot maceration of the outflow graft and venous outflow tract, a catheter was advanced across the artery-graft anastomosis into the superficial femoral artery and an angiogram was performed showing flush occlusion at the arterial graft anastomosis. After pulling the arterial plug, repeat angiography from the superficial femoral artery showed baptist of patency of the graft and outflow venous tract, with persistent stenosis of the graft vein anastomosis. Intra-procedural thrombolytic injection Thrombolytic was injected within the thrombosed segment of the graft. Thrombolytic agent: tPA Thrombolytic dose: 3 mg Angioplasty Angioplasty of the distal graft, graft vein anastomosis, and outflow vein just proximal to its confluence with the common femoral vein was performed followed by several sweeps of balloon centrally for clot maceration and displacement. Angioplasty balloon(s): [employer] Crowley 8 mm x 4 cm Findings: There is resolution of waist seen after angioplasty of the distal graft stenosis and outflow venous stenosis. The stenosis at the graft vein anastomosis was elastic and continue to recoil after repeat angioplasty limiting outflow. Because of this a stent was placed. Pulling of arterial plug The arterial plug was pulled using Vel catheter. Stent placement Stent placement was performed graft vein anastomosis due to recalcitrant stenosis. Stent placed: Viabahn Stent type: Covered Stent diameter (mm): 7 Stent length (mm): 50 Balloon dilation of stent (mm): 8 mm Final angiography Final angiography was performed. Findings: Successful declot of the femoral AV graft. Resolution of the endograft stenosis after angioplasty. Resolution of the graft-vein anastomotic stenosis after stent graft placement. Brisk flow of contrast throughout the graft and outflow vein. Mild persistent residual stenosis at the venous confluence at the level of the common femoral vein. Final graft palpation: Palpable thrill Closure Woggle/pursestring sutures were placed around and both she's were removed. Pursestring's were removed in recovery approximately 1 hour later. A sterile dressing was applied. Contrast Contrast agent: Omnipaque 350 Contrast volume (mL): 125 Radiation Dose Fluoroscopy time (minutes): 15.1 Reference air kerma (mGy): 104 Kerma area product (Gy-cm2): 35.1 Additional Details Additional description of procedure: None Equipment details: None Specimens removed: None Estimated blood loss (mL): Less than 10 Standardized report: [id number] Attestation Signer name: Walt Lin MD I attest that I performed the procedure. I reviewed the stored images and [...] who have questions please contact the health care management coordinator that requested your imaging first. ? Electronically signed by: Walt Lin MD, [facility] ([phone]), at 10/11/2021 5:47 PM Narrative 10/11/2021 5:47 PM EDT PROCEDURE: Arteriovenous graft declot Procedural Personnel Attending physician(s): Walt Lin MD Fellow physician(s): None Resident physician(s): None Advanced practice provider(s): None Pre-procedure diagnosis: ESRD requiring HD Post-procedure diagnosis: Same Indication: Thrombosis of RIGHT thigh arteriovenous dialysis graft Additional clinical history: 61-year-old male with RIGHT lower extremity AVG for dialysis recently thrombosed currently dialyzing via tunneled hemodialysis catheter Complications: No immediate complications. Procedure Note Walt Lin MD - 10/11/2021 PROCEDURE: Arteriovenous graft declot Procedural Personnel Attending physician(s): Walt Lin MD Fellow physician(s): None Resident physician(s): None Advanced practice provider(s): None Pre-procedure diagnosis: ESRD requiring HD Post-procedure diagnosis: Same Indication: Thrombosis of RIGHT thigh arteriovenous dialysis graft Additional clinical history: 61-year-old male with RIGHT lower extremityAVG for dialysis recently thrombosed currently dialyzing via tunneledhemodialysis catheter Complications: No immediate complications. IMPRESSION Successful declot of arterial venous graft with placement of stent graftat the graft vein anastomosis. Plan: The graft can be used for dialysis immediately. PROCEDURE SUMMARY: - Access of dialysis graft [...] including cutaneous antisepsis. Anesthesia/sedation Level of anesthesia/sedation: Moderate sedation (conscious sedation) Anesthesia/sedation administered by: Independent trained observer under attending supervision with continuous monitoring of the patients levelof consciousness and physiologic status Total intra-service sedation time (minutes): See electronic medicalrecord Initial dialysis graft evaluation Dialysis graft side: Right Dialysis graft type: Femoral loop graft Initial graft palpation: No pulse, no thrill Access Local anesthesia was administered. The dialysis graft was accessed and a7 [place] sheath was placed. Access technique: Micropuncture set with 21 gauge needle Access direction: Toward venous anastomosis Second access Local anesthesia was administered. The dialysis graft was accessed in asecond location and a 6 [place] sheath was placed. Access technique: Micropuncture set with 21 gauge needle Access direction: Toward arterial anastomosis Initial angiography Initial angiography of the central veins was performed. Findings: Thrombosis of the graft and initial outflow vein to the regionof the RIGHT common femoral vein. The RIGHT common femoral vein, iliac veins, andIVC are widely patent. After angioplasty and clot maceration of the outflowgraft and venous outflow tract, a catheter was advanced across theartery-graft anastomosis into the superficial femoral artery and an angiogram wasperformed showing flush occlusion at the arterial graft anastomosis. After pullingthe arterial plug, repeat angiography from the superficial femoral arteryshowed baptist of patency of the graft and outflow venous tract, withpersistent stenosis of the graft vein anastomosis. Intra-procedural thrombolytic injection Thrombolytic was injected within the thrombosed segment of the graft. Thrombolytic agent: tPA Thrombolytic dose: 3 mg Angioplasty Angioplasty of the distal graft, graft vein anastomosis, and outflow veinjust proximal to its confluence with the common femoral vein was performedfollowed by several sweeps of balloon centrally for clot maceration anddisplacement. Angioplasty balloon(s): [employer] Crowley 8 mm x 4 cm Findings: There is resolution of waist seen after angioplasty of thedistal graft stenosis and outflow venous stenosis. The stenosis at the graftvein anastomosis was elastic and continue to recoil after repeat angioplastylimiting outflow. Because of this a stent was placed. Pulling of arterial plug The arterial plug was pulled using Vel catheter. Stent placement Stent placement was performed graft vein anastomosis due to recalcitrant stenosis. Stent placed: Viabahn Stent type: Covered Stent diameter (mm): 7 Stent length (mm): 50 Balloon dilation of stent (mm): 8 mm Final angiography Final angiography was performed. Findings: Successful declot of the femoral AV graft. Resolution of theendograft stenosis after angioplasty. Resolution of the graft-vein anastomoticstenosis after stent graft placement. Brisk flow of contrast throughout the graftand outflow vein. Mild persistent residual stenosis at the venous confluenceat the level of the common femoral vein. Final graft palpation: Palpable thrill Closure Woggle/pursestring sutures were placed around and both she's wereremoved. Pursestring's were removed in recovery approximately 1 hour later. Asterile dressing was applied. Contrast Contrast agent: Omnipaque 350 Contrast volume (mL): 125 Radiation Dose Fluoroscopy time (minutes): 15.1 Reference air kerma (mGy): 104 Kerma area product (Gy-cm2): 35.1 Additional Details Additional description of procedure: None Equipment details: None Specimens removed: None Estimated blood loss (mL): Less than 10 Standardized report: [id number] Attestation Signer name: Walt Lin MD I attest that I performed the procedure. I reviewed the stored images andagree with the report as written. Sedation attestation: I was present during the intra-service time asdocumented by IR nurse. Thank you for letting us participate in the care of this patient. If youare a health care provider and have any questions regarding this report,please contact the number below. For patients who have questions please contactthe health care management coordinator that requested your imaging first. Electronically signed by: Walt Lin MD, [facility]([phone]), at 10/11/2021 5:47 PM Luna Solorio APRN IMG IR ORDERABLES * (ABNORMAL) Potassium (10/10/2021 1:12 PM EDT) Potassium 5.3(H) 3.5 - 5.0 mmol/L [facility] Comment: Please note: ??Patients with WBC >100,000 may have falsely elevated Potassium levels. ??For accurate Potassium quantification in these patients send serum separator tube (gold top) for subsequent determinations. ??Contact the Clinical Chemistry Laboratory if there are any questions. Blood 10/10/2021 1:12 PM EDT 10/10/2021 1:21 PM EDT Narrative Resulting Agency Comment Spec In Lab Luna Solorio SHIRT HEMMER CHEMISTRY ORDERAB LES [facility] [place] [address] documented in this encounter Visit Diagnoses Diagnosis [...] 2-6 mg, INTRA-CATHETER, ONCE, 1 dose, On Wed10/10/21 at 1515, For use in Interventional Radiology (IR) only for procedure with direct provider supervision and verbal order. , Angio/IR (Intra-Procedure), Routine Given 10/10/2021 3:26 PM EDT 1 mg Given 10/10/2021 3:01 PM EDT 2 mg fentaNYL (pf) (50 mcg/mL) multi-dose injection 25-50 mcg 25-50 mcg, Intravenous, EVERY 3 MIN PRN, Starting on Wed10/10/21 at 1302, Until 10/11/21 at 0433, Pain, per unit protocol, - Start dose [...] order., Angio/IR (Day of Procedure), Routine Given 10/10/2021 4:42 PM EDT 50 mcg Given 10/10/2021 4:01 PM EDT 50 mcg Given 10/10/2021 3:13 PM EDT 50 mcg heparin (porcine) (1,000 units/mL) injection 1,000-10,000 Units 1,000-10,000 Units, Intravenous, ONCE, 1 dose, On Wed10/10/21 at 1515, For use in Interventional Radiology (IR) only for procedure with direct provider supervision and verbal order. , Angio/IR (Intra-Procedure), Routine Given 10/10/2021 4:32 PM EDT 2,000 Units Given 10/10/2021 3:00 PM EDT 3,000 Units iohexoL (Omnipaque) (350 mg/mL) solution 1-400 mL 1-400 mL, Intravenous, ONCE, 1 dose, On Wed10/10/21 at 1515, For intra-procedural use by proceduralist., Angio/IR (Intra-Procedure), Routine Given 10/10/2021 3:15 PM EDT 125 mLs midazolam (pf) (Versed) (1 mg/mL) multi-dose injection 0.5-1 mg 0.5-1 mg, Intravenous, EVERY 3 MIN PRN, Starting on 10/10/21 at 1302, Until 10/11/21 at 0433, Sleep, - Start dose; 1 mg (Reduce dose to 0.5 mg if history of sedation sensitivity). - Titration dose: 0.5 mg - 1 mg (based on patient response) every 3 minutes PRN to obtain RASS score of -3. Maximum dose: 1 mg per dose, 5 mg/hour. For use in Interventional Radiology (IR) only for procedural sedation with direct provider supervision and verbal order., Angio/IR (Day of Procedure), Routine Given 10/10/2021 4:01 PM EDT 0.5 mg Given 10/10/2021 3:25 PM EDT 0.5 mg Given 10/10/2021 3:13 PM EDT 0.5 mg documented in this encounter Care Teams School Services Officer Relationship Specialty Start Date End Date Carroll Fuentes DO [address] [place] [address] PCP - General 09/23/11 10/20/22 documented as of this encounter
--- OUTSIDE RECORDS SUMMARY | 2024-04-22 10:52 | XMS_ITS | Encounter Summary ---
Author Organization [facility] [place] [address] [address] Team [address] Care [address] Contractor Name Role Phone Carroll Fuentes DO Primary Care Provider Encounter Details Date Type Department Care Team (Late st Contact Info) Description 10/07/2022 [place] [address] Tab Harmon MD [facility] [place] [address] Social History Tobacco Use Types Packs/Day Years [...] as of this encounter Progress Notes * Tab Harmon MD - 10/07/2022 9:51 AM EDT Images from the original note were not included. FOCUSED H&P and PRE-PROCEDURE IR NOTE: PCP: Carroll Fuentes DO Referring Physician: Lyndsey Planned Procedure: Dialysis catheter revision Procedure Indication: Inadequate flow through arterial port. Presenting Diagnosis/ Complaint: Adama Ram is a 62 y.o. male with ESRD, dialysis via tunneled HD catheter. RIJ CVC placed 09/2021. Last replaced (with sheath disruption) 09/30 for poor flow despitefrequent administration of CathFlo, still not functioning well. 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 Has had multiple access procedures on the LUE as well as a R brachioaxillary graft in 2018 which thrombosed in December 2020. He then underwent left LUE AVG on 04/03/21 which thrombosed early on. Most recent RLE SFA-SFV loop graft which worked well until it thrombosed in September 2021 and then twice again in October. Currently dialyzed via RIJ catheter. Past Medical/Surgical History: Patient Active Problem List Diagnosis Code ??? [...] face C44.329 ??? 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 intermediate current use of immunosuppressive drug Z79.899 ??? H/O kidney transplant Z94.0 ??? Weight loss R63.4 ??? Gastrointestinal hemorrhage K92.2 ??? Bradycardia R00.1 ??? Left renal mass N28.89 ??? 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 Subarachnoid hemorrhage I60.9 ??? Anemia of chronic renal failure N18.9, D63.1 ??? SDH (subdural hematoma) S06.5XAA ??? 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 CKD [...] AV Fistula Evaluations 11/30/2019 Sabrina Velez MD [facility] INTERVENTIONL RAD ??? IR DIALYSIS ACCESS - AV FISTULA EVALUATIONS 01/07/2021 IR Dialysis Access - AV Fistula Evaluations 01/07/2021 Sabrina Velez MD [facility] INTERVENTIONL RAD ??? IR DIALYSIS ACCESS - AV FISTULA EVALUATIONS 09/25/2021 IR Dialysis Access - AV Fistula Evaluations 09/25/2021 Kanu Apple MD [facility] INTERVENTIONL RAD ??? IR DIALYSIS ACCESS - AV FISTULA EVALUATIONS 10/10/2021 IR Dialysis Access - AV Fistula Evaluations 10/10/2021 Walt Lin MD [facility] INTERVENTIONL RAD ??? IR DIALYSIS ACCESS - AV FISTULA EVALUATIONS 11/05/2021 IR Dialysis Access - AV Fistula Evaluations 11/05/2021 Walt Lin MD [facility] INTERVENTIONL RAD ??? IR DIALYSIS ACCESS - TUNNELED LINE 07/30/2018 IR Dialysis Access - Tunneled Line 07/30/2018 Walt Lin MD [facility] INTERVENTIONL RAD ??? IR DIALYSIS ACCESS - TUNNELED LINE 08/30/2018 IR Dialysis Access - Tunneled Line 08/30/2018 Erwin Simon APRN [facility] INTERVENTIONL RAD ??? IR DIALYSIS ACCESS - TUNNELED LINE 12/27/2020 IR Dialysis Access - Tunneled Line 12/27/2020 Kanu Apple MD [facility] INTERVENTIONL RAD ??? IR DIALYSIS ACCESS - TUNNELED LINE 01/23/2021 IR Dialysis Access - Tunneled Line 01/23/2021 Kanu Apple MD [facility] INTERVENTIONL RAD ??? IR DIALYSIS ACCESS - TUNNELED LINE 03/20/2021 IR Dialysis Access - Tunneled Line 03/20/2021 Tab Harmon MD [facility] INTERVENTIONL RAD ??? IR DIALYSIS ACCESS - TUNNELED LINE 09/29/2021 IR Dialysis Access - Tunneled Line 09/29/2021 Tab Harmon MD [facility] INTERVENTIONL RAD ??? IR DIALYSIS ACCESS - TUNNELED LINE 09/30/2022 IR Dialysis Access - Tunneled Line 09/30/2022 Sabrina Velez MD [facility] INTERVENTIONL RAD ??? IR LINE OR TUBE REMOVAL IN RECOVERY ROOM 07/31/2021 IR Line or Tube Removal in Recovery Room 07/31/2021 [facility] INTERVENTION[facility] RAD ??? KIDNEY TRANSPLANT KIDNEY TRANSPLANT / RECIPIENT/LT Procedure Date: 11/26/2002 ??? PRO ANASTOMOSIS, AV, ANY SITE Right 05/22/2021 AV FISTULA CREATION, DIRECT HEMODIALYSIS, ANY SITE, EG MADYSON FISTULA LOWER EXTREMITY (WRVU 11.9) performed by Odalis Elias MD at [facility] MAIN OR ??? PRO CREAT AV FISTULA, NON-AUTOGENOUS GRAFT Right 12/13/2018 PLACEMENT, AV HEMODIALYSIS GRAFT, SYNTHETIC GRAFT, UPPER EXTREMITY (WRVU 12.03) performed by Mary Garay MD at [facility] OR ??? PRO CREAT AV FISTULA, NON-AUTOGENOUS GRAFT Left 04/03/2021 PLACEMENT, AV HEMODIALYSIS GRAFT, SYNTHETIC GRAFT, UPPER EXTREMITY (WRVU 12.03) performed by Odalis Elias MD at [facility] MAIN OR ? ? PRO DEBRIDEMENT SUBCUTANEOUS TISSUE 20 SQCM/< Left 02/20/2016 DEBRIDEMENT SKIN AND SUBCU, HEAD/NECK performed by Miguel Angel Moreno MD at [facility] MAIN OR ??? PRO DECOMPRESS FOREARM, BRACH ART EXPLOR Left 04/06/2018 FASCIOTOMY, FOREARM, WITH BRACHIAL ARTERY EXPLORATION (WRVU 8.41) performed by Lida Peter MDat [facility] OR ??? PRO DIRECT REPAIR RUPTURED ANEURYSM, AXILLO-BRACHIAL ARM INCIS Left 04/06/2018 @REPAIR, RUPTURED AXILLARY OR BRACHIAL ARTERY ANEURYSM BY ARM INCISION (WRVU *) performed by Lida Peter MD at [facility] MAIN OR ??? PRO EXC PAROTD, TOTAL, UNILAT RAD NECK Left 02/05/2016 @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, TOTAL, WITH UNILATERAL RADICAL NECK DISSECTION performed by Miguel Angel Moreno MD at [facility] MAIN OR ??? PRO EXC SKIN MALIG 3.1-4CM FACE, FACIAL Left 02/05/2016 EXC MALIGNANT LESION, 3.1 TO 4.0CM, FACE performed by Miguel Angel Moreno MD at [facility] OR ? ? PRO EXC SKIN MALIG >4CM TRUNK, ARM, LEG 04/19/2012 EXC MALIGNANT LESION, MICHAEL > 4.0CM, TRUNK performed by SABRINA SANCHEZ at [facility] OR ??? PRO LAP, RADICAL NEPHRECTOMY Left 05/31/2017 @LAPAROSCOPY, RADICAL NEPHRECTOMY (WRVU 25.06) performed by Jax Mills MD at [facility] OR ??? PRO LIGATN ANGIOACCESS AV FISTULA Left 04/19/2018 LIGATION OR BANDING OF HEMODIALYSIS FISTULA OR GRAFT UPPER EXTREMITY (WRVU 6.25) performed by Odalis Elias MD at [facility] MAIN OR ??? PRO NEGATIVE PRESSURE WOUND THERAPY, LESS THAN OR EQUAL TO 50 SQCM Left 04/19/2018 DRESSING CHANGE (VAC ASSISTED) UP TO 50SQ.CM (WRVU 0.55) performed by Odalis Elias MD [facility] OR ??? PRO PHLEB VEINS - EXTREM - TO 20 Right 05/22/2021 STAB PHLEBECTOMY LISBTE VEINS 1 EXTREMITY 10-20 INCISIONS (WRVU 7.71) performed by Odalis Elias MD at [facility] OR ??? PRO REBL VES GRAFT, UP EXTREM Left 04/06/2018 REPAIR BLOOD VESSEL WITH GRAFT OTHER THAN VEIN, UPPER EXTREMITY (WRVU 15.83) performed by Lida Peter MD at [facility] OR ??? PRO RELIEVE PRESSURE ON NERVE(S) Left 04/06/2018 (MSURG) CARPAL TUNNEL (WRVU 4.82) performed by Silviano Sparks MD at [facility] OR ??? PRO REPAIR INTERMEDIATE S/A/T/E 2.6-7.5 CM 04/19/2012 REPAIR INTERMEDIATE WOUND, (NO HANDS OR FEET) 2.6 TO 7.5CM, UPPER EXTREMITY performed by SABRINA SANCHEZ at [facility] MAIN OR ? ? PRO REPAIR INTERMEDIATE S/A/T/E > 30.0 CM Left 04/14/2018 REPAIR INTERMEDIATE WOUND, (NO HANDS OR FEET) >30.0CM, UPPER EXTREMITY (WRVU 5) performed by Yimi Easton MD at [facility] MAIN OR ??? PRO REVISE MEDIAN N/CARPAL TUNNEL SURG Left 04/06/2018 MEDIAN NERVE DECOMPRESSION (CARPAL TUNNEL RELEASE) (WRVU 4.97) performed by Lida Peter MD [facility] MAIN OR ? ? PRO SPLIT GRFT TRUNK, ARM, LEG <100SQCM Left 04/26/2018 SPLIT THICK SKIN GRAFT,100 SQ CM OR LESS, ARMS (WRVU 9.9) performed by Silviano Sparks MD at [facility] MAIN OR ? ? PRO SPLIT GRFT, HEAD, FAC, HAND, FEET <100SQCM N/A 02/20/2016 SPLIT THICKNESS SKIN SPLIT GRAFT,100SQ CM OR LESS, NECK performed by Miguel Angel Moreno MD at [facility] MAIN OR ??? PRO SPLIT GRFT, TRUNK, ARM, LEG EA 100SQCM N/A 04/26/2018 EA.ADDITIONAL 100SQ.CM STSG (WRVU 1.72) performed by Silviano Sparks MD at [facility] MAIN OR ??? PRO UNLISTED PROCEDURE VASCULAR SURGERY Left 11/20/2015 LIGATION\REPAIR AV FISTULA performed by Camilo Ireland MD at [facility] MAIN OR ??? PRO UNLISTED PROCEDURE VASCULAR SURGERY Left 11/20/2015 EXCISION VEIN FROM HAND performed by Camilo Ireland MD at [facility] MAIN OR ??? PRO UPPER GI ENDOSCOPY, BIOPSY N/A 05/13/2017 EGD WITH BIOPSY (WRVU 2.49) performed by Aditya Barrera MD at [facility] ENDOSCOPY ??? US RENAL TRANSPLANT BIOPSY 12/31/2010 ??? US RENAL TRANSPLANT RIGHT Right 06/04/2018 US Renal Transplant Right 06/04/2018 [facility] RAD ULTRASOUND Medications: Medication Sig ??? guaiFENesin ER (Mucinex) 600 mg Tablet Extended Release 12hr Take 600 mg by mouth 2 times dailyas needed for Congestion. ??? sevelamer carbonate (Renvela) 800 mg Tablet Take 800 mg by mouth 3 times daily (with meals). ??? aspirin 81 mg Tablet, Delayed Release (E.C.) Take 1 tablet by mouth daily. ??? multivitamin Capsule Take 1 capsule by mouth daily. ??? allopurinol (ZYLOPRIM) 100 mg Tablet Take 1 tablet by mouth daily. ??? acetaminophen (TYLENOL) 500 mg Tablet Take 2 tablets by mouth every 6 hours. ??? levETIRAcetam (KEPPRA) 500 mg Tablet Take 1 tablet by mouth 2 times daily. ??? losartan (COZAAR) 100 mg Tablet Take 1 tablet by mouth every morning. (Patient taking differently: Take 50 mg by mouth every morning.) ??? pantoprazole (PROTONIX) 20 mg Tablet, Delayed Release (E.C.) Take 1 tablet by mouth 2 times daily. (Patient taking differently: Take 20 mg by mouth daily.) ??? tacrolimus (PROGRAF) 1 mg Capsule Take 1 capsule by mouth 2 times daily. ??? carvedilol (COREG) 12.5 mg Tablet Take 1 tablet by mouth 2 times daily (with meals). (Patient taking differently: Take 6.25 mg by mouth 2 times daily (with meals).) ??? levothyroxine (SYNTHROID) 100 mcg Tablet Take 1 tablet by mouth daily. Allergies: Benazepril hcl, Codeine, Hydrochlorothiazide, and Pollen extracts Social History and Habits: Social History Socioeconomic History ??? Marital status: Single Spouse name: Not on file ??? Number of children: Not on file ??? Years of education: Not on file ??? Highest education level: Not on file Occupational History ??? 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 Smoking status: Former Packs/day: 0.25 Years: 1.50 Pack years: 0.38 Types: Cigarettes Quit date: 12/03/2000 Years since quittin.8 ??? Smokeless tobacco: Former Quit date: 04/14/2001 Vaping Use ??? Vaping Use: Never used Substance and Sexual Activity ??? Alcohol use: No ??? Drug use: No Types: Marijuana Comment: havent in /1995 ??? Sexual activity: Not on file Comment: [...] Relation Age of Onset ??? Pancreatitis Father Physical Exam: Pending Labs: Lab Results Component Value Date WBC 6.1 09/29/2021 HCT 33.8 (L) 09/29/2021 PLATELET 175 09/29/2021 INR 0.9 08/03/2018 BUN 41 (H) 09/30/2021 CREATININE 7.48 (H) 09/30/2021 ALKPHOS 93 11/29/2018 AST 14 11/29/2018 ALBUMIN 4.2 11/29/2018 BILIDIR 0.2 05/15/2017 BILITOT 0.5 11/29/2018 ALT 13 11/29/2018 PROT 7.7 11/29/2018 Prior Imagin09/30/22: Assessment: 62 y.o. male with ESRD, dialysis via tunneled HD catheter. RIJ CVC placed 09/2021. Last replaced (with sheath disruption-tho no sheath demonstrated) 09/30 for poor flow despite frequent administration of CathFlo, now with inadequate flow via arterial port. Plan: Tunneled HD catheter revision. (possible change to RIJ) Labs: [per IR/CT protocol] Prophylactic antibiotic: [none] Medications to discontinue (and when): [none] Patient Position: [supine] Access site: Prep bilat IJ Sedation Plan : Mod Conscious Discharge Plan: home documented in this encounter Plan of Treatment Not on file documented as of this encounter Visit Diagnoses Not on filedocumented in this encounter Care Teams Road Contractor Relationship Specialty Start Date End Date Carroll Fuentes DO [address] [place] [address] PCP - General 09/23/11 10/20/22 documented as of this encounter
--- OUTSIDE RECORDS SUMMARY | 2024-04-22 10:52 | XMS_ITS | Encounter Summary ---
Author Organization [facility] Address [facility] [place] [address] Care Team Providers Care Stave And Bolt Equalizer Name Role Phone Carroll Fuentes DO Primary Care Provider [phone] Encounter Details Date Type Department Care Team (Late st Contact Info) Description 10/24/2021 [place] [address] Veto Goodman PA [facility] [place] [address] Social History Tobacco Use Types Packs/Day Years [...] on file documented as of this encounter H&P Notes * Veto Goodman PA - 10/24/2021 9:04 AM EDT Interventional Radiology Focused Pre-procedure H&P: PCP: Carroll Fuentes DO Referring Provider: No ref. provider found Planned procedure: Right lower extremity fistulagram Procedure indication: End stage renal disease, malfunctioning dialysis access IR workflow: Procedure request received through Interventional Radiology eDH order queue. Question Answer Where will study be performed? [facility] Radiology Laterality Right Is the patient on anticoagulant / antiplatelet therapy ? Aspirin Reason for exam and clinical history: clotted R thigh AVG. ??has been recently declotted on 09/25/21and 10/10/21. ??will schedule after dialysis with his history of hyperkalemia History of present illness: Per chart review, Adama Ram is a 61 y.o. male who presents to Interventional Radiology to undergo right lower extremity fistulagram. This is a patient who failed upper extremity accesses who underwent creation of a right saphenous A/V loop AVG by Vascular Surgery on 05/22/21. Recently complicated by recurrent clotting, two interventions by [facility] IR in the past month. Most recent [...] by mouth 2 times daily. 05/05/21 per [facility], patient taking 2 capsules in the [...] face C44.329 ??? 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 longterm current use of immunosuppressive drug Z79.899 ??? [...] AV Fistula Evaluations 11/30/2019 Sabrina Velez MD [facility] INTERVENTIONL RAD ??? IR DIALYSIS ACCESS - AV FISTULA EVALUATIONS 01/07/2021 IR Dialysis Access - AV Fistula Evaluations 01/07/2021 Sabrina Velez MD [facility] INTERVENTIONL RAD ??? IR DIALYSIS ACCESS - AV FISTULA EVALUATIONS 09/25/2021 IR Dialysis Access - AV Fistula Evaluations 09/25/2021 Kanu Apple MD [facility] INTERVENTIONL RAD ??? IR DIALYSIS ACCESS - AV FISTULA EVALUATIONS 10/10/2021 IR Dialysis Access - AV Fistula Evaluations 10/10/2021 Walt Lin MD [facility] INTERVENTIONL RAD ??? IR DIALYSIS ACCESS - TUNNELED LINE 07/30/2018 IR Dialysis Access - Tunneled Line 07/30/2018 Walt Lin MD [facility] INTERVENTIONL RAD ??? IR DIALYSIS ACCESS - TUNNELED LINE 08/30/2018 IR Dialysis Access - Tunneled Line 08/30/2018 Erwin Simon APRN [facility] INTERVENTIONL RAD ??? IR DIALYSIS ACCESS - TUNNELED LINE 12/27/2020 IR Dialysis Access - Tunneled Line 12/27/2020 Kanu Apple MD [facility] INTERVENTION[facility] RAD ??? IR DIALYSIS ACCESS - TUNNELED LINE 01/23/2021 IR Dialysis Access - Tunneled Line 01/23/2021 Kanu Apple MD [facility] INTERVENTION[facility] RAD ??? IR DIALYSIS ACCESS - TUNNELED LINE 03/20/2021 IR Dialysis Access - Tunneled Line 03/20/2021 Tab Harmon MD [facility] INTERVENTION[facility] RAD ??? IR DIALYSIS ACCESS - TUNNELED LINE 09/29/2021 IR Dialysis Access - Tunneled Line 09/29/2021 Tab Harmon MD [facility] INTERVENTION[facility] RAD ??? IR LINE OR TUBE REMOVAL IN RECOVERY ROOM 07/31/2021 IR Line or Tube Removal in Recovery Room 07/31/2021 [facility] INTERVENTION[facility] RAD ??? KIDNEY TRANSPLANT KIDNEY TRANSPLANT / RECIPIENT/LT Procedure Date: 11/26/2002 ??? PRO ANASTOMOSIS, AV, ANY SITE Right 05/22/2021 AV FISTULA CREATION, DIRECT HEMODIALYSIS, ANY SITE, EG MADYSON FISTULA LOWER EXTREMITY (WRVU 11.9) performed by Odalis Elias MD at [facility] MAIN OR ??? PRO CREAT AV FISTULA, NON-AUTOGENOUS GRAFT Right 12/13/2018 PLACEMENT, AV HEMODIALYSIS GRAFT, SYNTHETIC GRAFT, UPPER EXTREMITY (WRVU 12.03) performed by Mary Garay MD at [facility] OR ??? PRO CREAT AV FISTULA, NON-AUTOGENOUS GRAFT Left 04/03/2021 PLACEMENT, AV HEMODIALYSIS GRAFT, SYNTHETIC GRAFT, UPPER EXTREMITY (WRVU 12.03) performed by Odalis Elias MD at [facility] OR ? ? PRO DEBRIDEMENT SUBCUTANEOUS TISSUE 20 SQCM/< Left 02/20/2016 DEBRIDEMENT SKIN AND SUBCU, HEAD/NECK performed by Miguel Angel Moreno MD at [facility] MAIN OR ??? PRO DECOMPRESS FOREARM, BRACH ART EXPLOR Left 04/06/2018 FASCIOTOMY, FOREARM, WITH BRACHIAL ARTERY EXPLORATION (WRVU 8.41) performed by Lida Peter MDat [facility] OR ??? PRO DIRECT REPAIR RUPTURED ANEURYSM, AXILLO-BRACHIAL ARM INCIS Left 04/06/2018 @REPAIR, RUPTURED AXILLARY OR BRACHIAL ARTERY ANEURYSM BY ARM INCISION (WRVU *) performed by Liad Peter MD at [facility] MAIN OR ??? PRO EXC PAROTD, TOTAL, UNILAT RAD NECK Left 02/05/2016 @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, TOTAL, WITH UNILATERAL RADICAL NECK DISSECTION performed by Miguel Angel Moreno MD at [facility] MAIN OR ??? PRO EXC SKIN MALIG 3.1-4CM FACE, FACIAL Left 02/05/2016 EXC MALIGNANT LESION, 3.1 TO 4.0CM, FACE performed by Miguel Angel Moreno MD at [facility] OR ? ? PRO EXC SKIN MALIG >4CM TRUNK, ARM, LEG 04/19/2012 EXC MALIGNANT LESION, MICHAEL > 4.0CM, TRUNK performed by SABRINA SANCHEZ at [facility] OR ??? PRO LAP, RADICAL NEPHRECTOMY Left 05/31/2017 @LAPAROSCOPY, RADICAL NEPHRECTOMY (WRVU 25.06) performed by Jax Mills MD at [facility] OR ??? PRO LIGATN ANGIOACCESS AV FISTULA Left 04/19/2018 LIGATION OR BANDING OF HEMODIALYSIS FISTULA OR GRAFT UPPER EXTREMITY (WRVU 6.25) performed by Odalis Elias MD at [facility] MAIN OR ??? PRO NEGATIVE PRESSURE WOUND THERAPY, LESS THAN OR EQUAL TO 50 SQCM Left 04/19/2018 DRESSING CHANGE (VAC ASSISTED) UP TO 50SQ.CM (WRVU 0.55) performed by Odalis Elias MD [facility] OR ??? PRO PHLEB VEINS - EXTREM - TO 20 Right 05/22/2021 STAB PHLEBECTOMY LISBET VEINS 1 EXTREMITY 10-20 INCISIONS (WRVU 7.71) performed by Odalis Elias MD at [facility] OR ??? PRO REBL VES GRAFT, UP EXTREM Left 04/06/2018 REPAIR BLOOD VESSEL WITH GRAFT OTHER THAN VEIN, UPPER EXTREMITY (WRVU 15.83) performed by Lida Peter MD at [facility] OR ??? PRO RELIEVE PRESSURE ON NERVE(S) Left 04/06/2018 (MSURG) CARPAL TUNNEL (WRVU 4.82) performed by Silviano Sparks MD at [facility] OR ??? PRO REPAIR INTERMEDIATE S/A/T/E 2.6-7.5 CM 04/19/2012 REPAIR INTERMEDIATE WOUND, (NO HANDS OR FEET) 2.6 TO 7.5CM, UPPER EXTREMITY performed by SABRINA SANCHEZ at [facility] MAIN OR ? ? PRO REPAIR INTERMEDIATE S/A/T/E > 30.0 CM Left 04/14/2018 REPAIR INTERMEDIATE WOUND, (NO HANDS OR FEET) >30.0CM, UPPER EXTREMITY (WRVU 5) performed by Yimi Easton MD at [facility] MAIN OR ??? PRO REVISE MEDIAN N/CARPAL TUNNEL SURG Left 04/06/2018 MEDIAN NERVE DECOMPRESSION (CARPAL TUNNEL RELEASE) (WRVU 4.97) performed by Lida Peter MD [facility] MAIN OR ? ? PRO SPLIT GRFT TRUNK, ARM, LEG <100SQCM Left 04/26/2018 SPLIT THICK SKIN GRAFT,100 SQ CM OR LESS, ARMS (WRVU 9.9) performed by Silviano Sparks MD at [facility] MAIN OR ? ? PRO SPLIT GRFT, HEAD, FAC, HAND, FEET <100SQCM N/A 02/20/2016 SPLIT THICKNESS SKIN SPLIT GRAFT,100SQ CM OR LESS, NECK performed by Miguel Angel Moreno MD at [facility] MAIN OR ??? PRO SPLIT GRFT, TRUNK, ARM, LEG EA 100SQCM N/A 04/26/2018 EA.ADDITIONAL 100SQ.CM STSG (WRVU 1.72) performed by Silviano Sparks MD at [facility] MAIN OR ??? PRO UNLISTED PROCEDURE VASCULAR SURGERY Left 11/20/2015 LIGATION\REPAIR AV FISTULA performed by Camilo Ireland MD at [facility] MAIN OR ??? PRO UNLISTED PROCEDURE VASCULAR SURGERY Left 11/20/2015 EXCISION VEIN FROM HAND performed by Camilo Ireland MD at [facility] MAIN OR ??? PRO UPPER GI ENDOSCOPY, BIOPSY N/A 05/13/2017 EGD WITH BIOPSY (WRVU 2.49) performed by Aditya Barrera MD at [facility] ENDOSCOPY ??? US RENAL TRANSPLANT BIOPSY 12/31/2010 ??? US RENAL TRANSPLANT RIGHT Right 06/04/2018 US Renal Transplant Right 06/04/2018 [facility] RAD ULTRASOUND Social history and habits: Social [...] 10/24/2021 PANCHITO Lipscomb documented in this encounter Plan of Treatment Not on file documented as of this encounter Visit Diagnoses Diagnosis ESRD (end stage renal disease) on dialysis End stage renal disease documented in this encounter Care Teams Stave And Bolt Equalizer Relationship Specialty Start Date End Date Carroll Fuentes DO [address] [place] [address] PCP - General 09/23/11 10/20/22 documented as of this encounter
--- OUTSIDE RECORDS SUMMARY | 2024-04-22 10:52 | XMS_ITS | Encounter Summary ---
Author [place] [address] Care Team Providers Care Surveillance Systems Analyst Name Role Phone AlfredoCarroll allison Primary Care Provider [phone] Reason for Referral * Diagnostic Test (Routine) - Closed Specialty Diagnoses / Procedures Referred By Shashi ko Referred To Contact Radiology Diagnoses CKD (chronic kidney disease) stage 5, GFR less than 15 ml/min Procedures IR Dialysis Access - Tunneled Line Luna Solorio APRN [facility] [place] [address] [facility] [place] [address] Referral ID Status Reason Start Date Expiration Date V isits Requested Visits Authorized [id number] Closed Specialty Service Requested 09/24/2022 03/27/2024 1 1 Encounter Details Date Type Department Care Team (Late st Contact Info) Description 09/24/2022 Orders Only Nephrology [place] [address] Luna Solorio APRN [facility] [place] [address] CKD (chronic kidney disease) stage 5, GFR less than 15 ml/min Social History Tobacco Use Types Packs/Day Years [...] * IR Dialysis Access - Tunneled Line (09/30/2022 12:39 PM EDT) Anatomical Region Laterality Modality Abdomen X-Ray Angiograph y Narrative 09/30/2022 3:41 PM EDT IR PROCEDURE NOTE ?? Procedure: HD catheter exchange, balloon sheath disruption. ?? Indication for Procedure: Per PANCHITO Coronado, Adama Ram??is a 62 y.o.??male??with PMH of ESRD (HD via R IJ tunneled HD CVC placed September, multiple prior AVGs thrombosed)??who presents to Interventional Radiology to undergo tunneled HD CVC exchange with possible sheath disruption in the setting of poor flow despite frequent use of Cathflo. ?? Procedure events and findings: ??After obtaining informed consent patient was positioned supine on procedure table. ??Left neck base and upper chest with existing HD catheter prepped and draped, maximum sterile barrier technique was used throughout. Local anesthesia provided with 1% lidocaine. Contrast injection via the HD catheter did not show obvious sheath. ?? A stiff glide wire was passed through the existing HD catheter and directed into the IVC with fluoroscopic guidance. ??Existing HD catheter removed over wire. ? An 8 mm angioplasty balloon catheter was placed and used to break up any sheath that might be present. ?? A new 14.5Fr 32cm HD catheter placed over the guide wire with tip positioned in RA under fluoroscopic guidance. ??Both catheter ports aspirate and flush readily. Catheter anchored with suture. ?? Medications: ??1% Lidocaine <10ccs subcutaneous. ?? Est Blood Loss: <5cc. ?? Complications: ??No immediate ?? Impression: Exchange of left IJ tunneled hemodialysis catheter with 8 mm balloon sheath disruption. ??Catheter tip in right atrium, catheter tip in right atrium, catheter ready ?? Resident/Fellow: None. ?? Attending: Dr. Rosie Suarez performed this procedure. Luna John Solorio ELDER ASSISTANT IMG IR ORDERABLES documented in this encounter Visit Diagnoses Diagnosis CKD (chronic kidney disease) stage 5, GFR less than 15 ml/min Chronic kidney disease, Stage V CKD (chronic kidney disease) stage 5, GFR less than 15 ml/min Chronic kidney disease, Stage V documented in this encounter Care Teams Surveillance Systems Analyst Relationship Specialty Start Date End Date Carroll Fuentes DO [address] [facility] [address] [place] [address] PCP - General 09/23/11 10/20/22 documented as of this encounter
--- OUTSIDE RECORDS SUMMARY | 2024-04-22 10:52 | XMS_ITS | Encounter Summary ---
[place] [address] Care Team Providers Care Strip Cutter Name Role Phone AlfredoCarroll allison Primary Care Provider [phone] Reason for Referral * Diagnostic Test (Routine) - Closed Specialty Diagnoses / Procedures Referred By Shashi ko Referred To Contact Radiology Diagnoses ESRD (end stage renal disease) Procedures IR Dialysis Access - Tunneled Line Luna Solorio COASTAL AND ESTUARY SPECIALIST [facility] [place] [address] [place] [address] Referral ID Status Reason Start Date Expiration Date V isits Requested Visits Authorized [id number] Closed Specialty Service Requested 10/07/2022 04/09/2024 1 1 Encounter Details Date Type Department Care Team (Late st Contact Info) Description 10/07/2022 Orders Only Ne[place] [address] Luna Solorio APRN [facility] [place] [address] ESRD (end stage renal disease) [...] * IR Dialysis Access - Tunneled Line (10/14/2022 10:11 AM EDT) Anatomical Region Laterality Modality Abdomen X-Ray Angiograph y Narrative 10/14/2022 10:20 AM EDT IR PROCEDURE NOTE ?? Procedure: Tunneled hemodialysis catheter exchange ?? Indication for Procedure: Per Dr. Harmon, Adama Ram??is a 62 y.o.??male??with ESRD, dialysis via tunneled HD catheter. ??RIJ CVC placed 09/2021. Last replaced (with sheath disruption) 09/30 for poor flow despite frequent administration of CathFlo, still not functioning well. ?? 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 Has had??multiple access procedures on the LUE as well as??a R brachioaxillary graft in 2018 which thrombosed in December 2020.?He??then underwent??left LUE AVG on 04/03/21??which thrombosed early on. ??Most recent RLE SFA-SFV loop graft which worked well until it thrombosed in September 2021 and then twice again in October. ??Currently??dialyzed via R IJ catheter. ?? Had catheter exchange 10/01/2022 plus 8 mm balloon sheath disruption for poor catheter function. ??Returns today again with reported poor catheter function. ?? Procedure events and findings: Patient was positioned supine on procedure table. ??Left neck base and upper chest with existing HD catheter prepped and draped, maximum sterile barrier technique was used throughout. Local anesthesia provided with 1% lidocaine. ?? Initial fluoroscopy showed catheter tip in the caudal right atrium. ??Both red and blue ports aspirated and flushed readily. ??A stiff glide wire was passed through the existing HD and directed into IVC with fluoroscopic guidance. The 32 cm HD catheter was exchanged for a 28 cm HD catheter over the guide wire with tip positioned in RA under fluoroscopic guidance. ?? Catheter tip was positioned more cranially in the right atrium and the prior catheter. ??Both catheter ports aspirate and flush readily. Catheter anchored with suture. ?? Medications: 1% Lidocaine <10ccs subcutaneous. ?? Est Blood Loss: <5cc. ?? Complications: ??No immediate. ?? Impression: ?? 1. ??32 cm tunneled HD catheter exchanged for 28 cm tunneled HD catheter, tip slightly more cranial in right atrium, catheter ready for use. ?? 2. ??Existing catheter aspirated and flushed readily on arrival, new catheter also flushes and aspirates readily. ??Difference in patient positioning between placement and dialysis may account for some of the change in function. ?? Resident/Fellow: None. ?? Attending: IDr. Velez performed this procedure. Luna Solorio APRN IMG IR ORDERABLES documented in this encounter Visit Diagnoses Diagnosis ESRD (end stage renal disease) End stage renal disease ESRD (end stage renal disease) End stage renal disease documented in this encounter Care Teams Strip Cutter Relationship Specialty Start Date End Date Carroll Fuentes DO [address] [place] [address] PCP - General 09/23/11 10/20/22 documented as of this encounter
--- OUTSIDE RECORDS SUMMARY | 2024-04-22 10:52 | XMS_ITS | Encounter Summary ---
Author Organization [facility] [place] [address] Care Team Providers Care Custom Clothier Name Role Phone Alfredo, Carroll MIX Primary Care Provider [phone] Reason for Referral * Diagnostic Test (Routine) - Closed Specialty Diagnoses / Procedures Referred By Shashi t Referred To Contact Diagnoses ESRD (end stage renal disease) on dialysis Thrombosis of arteriovenous fistula, initial encounter Procedures AVF/Established Access Evaluation Aries Tong MD [facility] [place] [address] [facility] [address] [place] [address] Referral ID Status Reason Start Date Expiration Date V isits Requested Visits Authorized [id number] Closed Specialty Service Requested 10/28/2021 10/28/2022 1 1 Encounter Details Date Type Department Care Team (Late st Contact Info) Description 10/28/2021 Orders [place] [address] Corina Martinez RN ESRD (end stage renal disease) on dialysis; [...] documented as of this encounter Results * AVF/Established Access Evaluation (11/07/2021 12:33 PM EDT) VB Text Report Department: Vascular Surgery Lab Patient: [id number] (CHRISTY AMBROSE) CPT: 40673 Referring Physician: ARIES TONG ?? Phone: Indications: [...] PM EDT Aries Tong MD VASCULAR ORDERA [facility] documented in this encounter Visit Diagnoses Diagnosis ESRD (end stage renal disease) on dialysis End stage renal disease Thrombosis of arteriovenous fistula, initial encounter documented in this encounter Care Teams Custom Clothier Relationship Specialty Start Date End Date Carroll Fuentes DO [address] [place] [address] PCP - General 09/23/11 10/20/22 documented as of this encounter
--- OUTSIDE RECORDS SUMMARY | 2024-04-22 10:52 | XMS_ITS | Encounter Summary ---
[place] [address] Care Team Providers Care Roofing Machine Operator Name Role Phone AlfredoCarroll allison Primary Care Provider [phone] Encounter Details Date Type Department Care Team (Late st Contact Info) Description 11/14/2021 Telephone [place] [address] Mohinder Bravo APRN [facility] [place] [address] Social History Tobacco Use Types Packs/Day Years [...] encounter Miscellaneous Notes * Telephone Encounter - Mohinder Bravo APRN - 11/14/2021 5:02 PM EDT Received the following message: Asking about treatment for someone with COVID who had a transplant in the past Received: Today Tessa Flores, BOAT LOADER HELPER sent to Mohinder Bravo APRN Hi Toni, Dean is no longer our patient, but his brother Lucas, who is his guardian states that people in the retirement where his brother lives is testing positive for COVID. ??His brother had a transplant and is now back on dialysis. ??He is asking what treatment he can get for COVID being a kidney recipient. ??His number is [phone]. ??Thanks. Tessa BONNER to Lucas Zavala states he has already talked to Dr. Boyd in Nephrology about this and has received the information he was looking for. He thanked me for returning his call. documented in this encounter Plan of Treatment Not on file documented as of this encounter Visit Diagnoses Not on filedocumented in this encounter Care Teams Roofing Machine Operator Relationship Specialty Start Date End Date Carroll Fuentes DO [address] [place] [address] PCP - General 09/23/11 10/20/22 documented as of this encounter
--- OUTSIDE RECORDS SUMMARY | 2024-04-22 10:52 | XMS_ITS | Encounter Summary ---
Author Organization [facility] Address [facility] [address] [place] [address] Care Team Providers Care Lead Assembler Name Role Phone Alfredo, Carroll MIX Primary Care Provider [phone] Encounter Details Date Type Department Care Team (Late st Contact Info) Description 06/06/2021 1:00 PM EST Office [place] [address] Nilda Minaya APRN [facility] [place] [address] ESRD (end stage renal disease) on dialysis [...] Sign Reading Time Taken Comments Blood Pressure 113/64 06/06/2021 1:33 PM EST Pulse 57 06/06/2021 1:33 PM EST Temperature - - Respiratory Rate - - Oxygen Saturation - - Inhaled Oxygen Concentration - - Weight 86.2 kg (190 lb) 06/06/2021 1:33 PM EST Height 177.8 cm (5' 10) 06/06/2021 1:33 PM EST Body Mass Index 27.26 06/06/2021 1:33 PM EST documented in this encounter Progress Notes * Nilda Minaya, ELECTRONIC CONSOLE DISPLAY OPERATOR - 06/06/2021 2:00 PM EST OUTPATIENT VASCULAR SURGERY FOLLOW-UP Reason for Visit: ESRD, post-op visit History of Present Illness: Adama Ram is a 60 y.o. male here for follow-up evaluation. He is now s/p 05/22/2021 R leg stab phlebectomy/excision of vein cluster, anterior saphenous vein ligation and SFA-SFV loop AVG (counterclockwise flow of blood in graft) with 4-7mm tapered PTFE. Hx: left LUE AVG on 04/03/21 thrombosis. 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 He is s/p multiple access procedures on the LUE and more recently a R brachioaxillary graft in 2018. In December of this year his graft was found to be occluded (outflow stenosis) and was unable to be opened. He is currently being dialyzed via port. Today, pt is doing well since surgery. Denies fever, chills, SOB, CP. Denies incisional redness, drainage. Taking daily ASA. Atherosclerotic Risk Factors: (n) DM (y) HTN (n) CAD (n) CHF (n) Hyperlipidemia (n) CVA reports that he quit smoking about 20 years ago. His smoking use included cigarettes. He has a 0.38pack-year smoking history. He quit smokeless tobacco use about 20 years ago. Access Procedures 05/22/21 R leg stab phlebectomy/excision of vein cluster, anterior saphenous vein ligation and SFA-SFV loop AVG (counterclockwise flow of blood in graft) with 4-7mm tapered PTFE. Hx: left LUE AVG on 04/03/21 thrombosis. 03/2021 L brachio-axillary graft with early thrombosis 12/2018 R brachio-axillary graft (Accuseal) 04/2018 Ligation of L radiocephalic AVF 03/2018 L AVF repair/ligation of ruptured access, repair of L brachial artery, fasciotomies Patient Active Problem List Diagnosis Code ??? Epilepsy G40.909 ??? Gout M10.9 ??? Hypertension I10 ??? Left leg DVT I82.402 ??? IgA nephropathy N02.8 ??? BCC (basal cell carcinoma of skin) C44.91 ??? Acne rosacea L71.9 ??? Rosacea L71.9 ??? Atopic rhinitis J30.9 ??? Injury of head S09.90XA ??? Non-neoplastic nevus I78.1 ??? Colon polyp K63.5 ??? Varicose veins of lower extremities I83.93 ??? Squamous cell carcinoma of skin of other parts of face C44.329 ??? Encounter for long-term (current) use of other medications Z79.899 ??? Aftercare following organ transplant Z48.298 ??? CKD (chronic kidney disease) stage 4, GFR 15-29 ml/min N18.4 ??? 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 penitentiary current use of immunosuppressive drug Z79.899 ??? H/O kidney transplant Z94.0 ??? Weight loss R63.4 ??? Gastrointestinal hemorrhage K92.2 ??? Bradycardia R00.1 ??? Left renal mass N28.89 ??? 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 Surgery follow-up Z09 ??? Subarachnoid hemorrhage I60.9 ??? Anemia of chronic renal failure N18.9, D63.1 ??? SDH (subdural hematoma) S06.5X9A ??? 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 CKD (chronic kidney disease) stage 5, GFR less than 15 ml/min N18.5 ??? Hypertension secondary to other renal disorders I15.1, N28.89 ??? Renal osteodystrophy N25.0 ??? 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 Acute renal failure N17.9 ??? ESRD (end stage renal disease) N18.6 ??? End stage chronic kidney disease N18.6 ??? ESRD (end stage renal disease) on dialysis N18.6, Z99.2 Current Outpatient Medications: ??? guaiFENesin ER (Mucinex) 600 mg Tablet Extended Release 12hr, Take 600 mg by mouth 2 times daily as needed for Congestion., Disp: , Rfl: ??? sevelamer carbonate (Renvela) 800 mg Tablet, Take 800 mg by mouth 3 times daily (with meals)., Disp: , Rfl: ??? aspirin 81 mg Tablet, Delayed Release (E.C.), Take 1 tablet by mouth daily., Disp: 30 tablet, Rfl: 3 ??? multivitamin Capsule, Take 1 capsule by mouth daily., Disp: 30 capsule, Rfl: 0 ??? allopurinol (ZYLOPRIM) 100 mg Tablet, Take 1 tablet by mouth daily., Disp: 30 tablet, Rfl: 11 ??? acetaminophen (TYLENOL) 500 mg Tablet, Take 2 tablets by mouth every 6 hours., Disp: 30 tablet,Rfl: 1 ??? levETIRAcetam (KEPPRA) 500 mg Tablet, Take 1 tablet by mouth 2 times daily., Disp: 60 tablet, Rfl: 0 ??? losartan (COZAAR) 100 mg Tablet, Take 1 tablet by mouth every morning. (Patient taking differently: Take 50 mg by mouth every morning.), Disp: 60 tablet, Rfl: 0 ??? pantoprazole (PROTONIX) 20 mg Tablet, Delayed Release (E.C.), Take 1 tablet by mouth 2 times daily., Disp: 60 tablet, Rfl: 0 ??? tacrolimus (PROGRAF) 1 mg Capsule, Take 1 capsule by mouth 2 times daily. (Patient taking differently: Take 1 mg by mouth 2 times daily. 05/05/21 per [facility], patient taking 2 capsules in the morning and 1 capsule every evening), Disp: 60 capsule, Rfl: 0 ??? carvedilol (COREG) 12.5 mg Tablet, Take 1 tablet by mouth 2 times daily (with meals). (Patient taking differently: Take 6.25 mg by mouth 2 times daily (with meals).), Disp: 60 tablet, Rfl: 3 ??? levothyroxine (SYNTHROID) 100 mcg Tablet, Take 1 tablet by mouth daily., Disp: 90 tablet, Rfl: 0 Allergies Allergen Reactions ??? Benazepril Hcl ??? Codeine Other (See Comments) Patient does not know reaction ??? Hydrochlorothiazide ??? Pollen Extracts Sneezing/runny nose Review of Systems: Constitutional (weight change, fever) - Denies Neuro (dizziness, seizures, numbness, tingling) - Denies Eyes (vision) - Denies Ears, nose, throat (hearing) - Denies Cardiovascular (CP) - Denies Respiratory (SOB) - Denies GI (abd pain, nausea, emesis, blood in stool) - Denies (hematuria, dysuria, frequency) - Denies Muscoloskeletal (extremity pain, weakness) - Denies Skin (ulcers, rashes) - Denies Functional Status/Social Hx: Lives in fpc, Rides Bike, Denies Tobacco Use Family Hx: Negative for Thrombosis, Bleeding Disorders Physical Exam: BP 113/64 (BP Location (NBP): Right arm, Patient Position: Sitting) Pulse 57 Ht 177.8 cm (5' 10) Wt 86.2 kg (190 lb) BMI 27.26 kg/m?? General - NAD, appears stated age Neuro - Alert and Oriented, Motor Sensory grossly intact Skin - No prominent markings or lesions Ear, Nose, Throat - No masses, No lesions Cardiac - RRR, no murmurs Lungs - Clear Abd - Soft, NT, ND, No palpable pulsatile masses Musculoskeletal- full ROM upper and lower extremities Psych- alert oriented X3 Extremities - RUE with healed incisions. Numerous collateral veins visible over upper arm and chestwall. LUE with healed forearm fasciotomies/skin grafts, healed incisions of the upper arm. RLE: thigh incision x2 healing well with suture intact, no surrounding erythema, no drainage. Palpable thrill over AVG, Palable DP/PT pulses. Vascular Exam: R L DP 2/2 2/2 PT 2/2 2/2 Labs/Studies: 06/06/2021 Established access findings: ?? Right ? PSV (cm/s) ??EDV (cm/s) ??Flow (ml/min) ?? Inflow Artery, Site #1 ? 165 ?86 ? 2908 ?? Graft, Inflow Anastomosis ? 364 ? 243 ? Graft, ??Proximal ? 317 ? 201 ? 2923 ?? Graft, Mid ? 347 ? 231 ? 2970 ?? Graft, Distal ? 340 ? 239 ? 3299 ?? Graft, Outflow Anastomosis ?? 273 ? 194 ? Outflow Vein, Site #1 ?179 ? 104 ? 1471 ?? Outflow Vein, Site #2 ?212 ? 111 ? 1375 ? Interpretation: RIGHT: Patent superficial femoral artery to superficial femoral vein arterial venous graft. Elevated velocities throughout the graft; however, clinical significance of this is unlikely in view of excellent volume flow. Comparison: ??No previous study in our vascular lab database for comparison. No flowsheet data found. Assessment and Plan: 60 y.o. male with ESRD and multiple failed access procedures in both upper extremities now s/p RLE AVG placement. Incisions are healing well, suture removed today without incident. Flow rate in AVG is excellent. Dr. Elias consulted and AVG will be usable at 4 weeks postop, ~06/21/2021. Continue daily ASA. Pt can swim after 4 weeks postop date. Follow-up PRN Nilda Minaya APRN Department of Vascular Surgery documented in this encounter Plan of Treatment Not on file documented as of this encounter Visit Diagnoses Diagnosis ESRD (end stage renal disease) on dialysis End stage renal disease documented in this encounter Care Teams Lead Assembler Relationship Specialty Start Date End Date Carroll Fuentes DO [facility] [address] [place] [address] PCP - General 09/23/11 10/20/22 documented as of this encounter
--- OUTSIDE RECORDS SUMMARY | 2024-04-22 10:52 | XMS_ITS | Encounter Summary ---
[place] [address] Care Team Providers Care Bracelet Maker Novelty Name Role Phone AlfredoCarroll allison Primary Care Provider [phone] Reason for Referral * Diagnostic Test (Routine) - Closed Specialty Diagnoses / Procedures Referred By Shashi ko Referred To Contact Radiology Diagnoses ESRD (end stage renal disease) Procedures IR Dialysis Access - Tunneled Line IR Dialysis Access - AV Fistula Evaluations Luna Solorio APRN [facility] [address] [facility] [place] [address] Referral ID Status Reason Start Date Expiration Date V isits Requested Visits Authorized [id number] Closed Specialty Service Requested 09/29/2021 04/01/2023 1 1 Encounter Details Date Type Department Care Team (Late st Contact Info) Description 09/29/2021 Orders Only [place]ph[place] [address] Luna Solorio APRN [facility] [place] [address] ESRD (end stage renal disease) [...] be thrombosed s/p TPA administration, venous anastomosis AUTOMATION APPLICATION ENGINEER to 8mm and Vel balloon sweep [...] documented by the IR Nurse. ?? Luna Solorio CONTINUOUS IMPROVEMENT ENGINEER IMG IR ORDERABLES documented in this encounter Visit Diagnoses Diagnosis ESRD (end stage renal disease) End stage renal disease ESRD (end stage renal disease) End stage renal disease documented in this encounter Care Teams Bracelet Maker Novelty Relationship Specialty Start Date End Date Carroll Fuentes DO [address] [place] [address] PCP - General 09/23/11 10/20/22 documented as of this encounter
--- OUTSIDE RECORDS SUMMARY | 2024-04-22 10:52 | XMS_ITS | Encounter Summary ---
Author Organization [facility] Address [facility] [place] [address] Care Team Providers Care Research Instrumentation Technician Name Role Phone AlfredoCarroll allison Primary Care Provider [phone] Reason for Visit * Reason Comments Vascular Access Problem Needs HD Encounter Details Date Type Department Care Team (Late st Contact Info) Description 09/29/2021 6:24 PM EDT - 09/30/2021 10:35 AM [place]T [place] [address] Erwin Hernandez MD [facility] [place] [address] Hyperkalemia (Primary Dx); Encounter for acute hemodialysis Discharge Disposition: Home Social History Tobacco Use [...] Sign Reading Time Taken Comments Blood Pressure 96/71 09/30/2021 8:00 AM EDT Pulse 61 09/30/2021 8:00 AM EDT Temperature 36.5 ??C (97.7 ??F) 09/30/2021 12:19 AM E DT Respiratory Rate 17 09/30/2021 8:00 AM EDT Oxygen Saturation 97% 09/30/2021 7:00 AM EDT Inhaled Oxygen Concentration - - Weight 86.2 kg (190 lb 0.6 oz) 09/29/2021 6:22 P M EDT Height - - Body Mass Index 27.27 06/06/2021 1:33 PM EST documented in this encounter Discharge Instructions * Discharge Instructions* Susanna Gimenez MD - 09/30/2021 2:16 AM EDT You were seen at the emergency room for emergency hemodialysis in the setting of elevated potassiumafter missing your usual Wednesday hemodialysis session. Other than the elevated potassium, your exam was reassuring in your labs were all normal. Given the cause of your abnormally elevated potassium level is due to missing your hemodialysis, you were managed with emergent dialysis here in the ER, and are medically stable for discharge home after the completion of your session. You should resume your normal hemodialysis schedule on Wednesdayat your outpatient dialysis center. Return to the ER for any concerns that you may have. documented in this encounter Medications at Time [...] 2018 10/21/2022 documented as of this encounter ED Notes * Rossi Wallace RN - 09/30/2021 10:35 AM EDT Pt was brought to the waiting room for his ride. He is leaving with all personal belongings. * Rossi Wallace RN - 09/30/2021 8:29 AM EDT Rachel will be here at 10:30 for pt pickup. Pt dressed and waiting in room. * Rossi Wallace RN - 09/30/2021 8:12 AM EDT Called to schedule ride back to [facility]. She stated she will call back with a time. * Ayan Cordova - 09/30/2021 1:45 AM EDT ED Resident Hand-off Note: Time of transfer of care: 4:32 AM Care transferred from: Dr. Ivan Gimenez Clinical Summary: 61 y.o. old male with a PMH of epilepsy, gout, hypertension GI bleed, CKD in the process of being evaluated for hyperkalemia. Please see Transferring MD notes for their initial evaluation, assessment and plan. Briefly, patient presents to the ED after being found to have an elevated potassium. He was given emergent dialysis. Plan to discharge after dialysis. Plan moving forward: - Discharge after dialysis, PO trial At the time of transfer I reviewed the following: - Differential established by team and intended course moving forward - Laboratory values in context with clinical scenario - Patient vital signs at time of transfer Temp: [36.5 ??C (97.7 ??F)] Heart Rate: [51-55] Resp: [11-14] BP: (114-127)/(66-79) SpO2: -- Heart Rate from SpO2: -- Labs Reviewed BASIC METABOLIC PANEL (NON-FASTING) - Abnormal; Notable for the following components: Result Value BUN 81 (*) Creatinine 11.83 (*) Potassium 7.5 (*) Chloride 95 (*) Anion Gap 18 (*) Estimated GFR 4 (*) All other components within normal limits HEMOGRAM - Abnormal; Notable for the following components: RBC 3.40 (*) Hemoglobin 11.4 (*) Hematocrit 33.8 (*) MCV 99.4 (*) MCH 33.5 (*) RDWSD 52.3 (*) RDWCV 14.3 (*) All other components within normal limits BLOOD GAS 2 VENOUS - Abnormal; Notable for the following components: pCO2 Rey 52 (*) K Whole Blood 7.2 (*) ICa Whole Blood 1.05 (*) CL Whole Blood 97 (*) All other components within normal limits CBC (WITH DIFF) MAGNESIUM PHOSPHORUS REQUEST FOR BLOOD GAS DRAW ([facility]) DIFFERENTIAL, AUTOMATED POCT GLUCOSE POCT FINGERSTICK GLUCOSE POCT FINGERSTICK GLUCOSE POCT FINGERSTICK GLUCOSE POCT FINGERSTICK GLUCOSE No orders to display On my evaluation, patient is comfortable appearing. He denies any pain at this time. He states he feels at his baseline. Plan to discharge to home with outpatient follow-up. Patient will remain in the emergency department until his ride share team is available Final Assessment: 1. Hyperkalemia 2. Encounter for acute hemodialysis Final Plan: - Discharge home, outpatient follow up, return precautions Condition at Discharge/admission: stable Ayna Cordova MD PGY-3 Ayan Cordova MD Resident 09/30/21 0433 * Susanna Gimenez MD - 09/29/2021 8:46 PM EDT ED Resident Note HPI: Adama Ram is a 61 y.o. 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 The patient recently underwent emergency HD on Wednesday, due to his femoral HD site being thrombosis. On Wednesday afternoon, femoral HD line thrombosis was cleared and patient was able to receive his HD session. At that time his potassium was 7.4. Today, he was seen in interventional radiology, where a left subclavian HD line was placed given hiscomplications with his femoral line. Labs today notable for potassium of 6.8, and were otherwise unremarkable. The patient was sent to the ED for emergent dialysis. Upon arrival at the ED, patient notes no symptoms and reports that he feels completely at his baseline. He denies chest pain, dizziness, numbnessor tingling, difficulty breathing, subjective fever or chills, new rashes, or any other complaints.He notes he has some degree of confusion at baseline due to a severe TBI decades ago, and is unsurewhy he was emergently sent to the ER. Patient notes his normal dialysis schedule is Wednesday, Wednesday, Wednesday. He notes that he has frequently been having issues with his femoral HD line and is happyto have a new line. Pt was seen under the supervision of an attending physician. Review of Systems Constitutional: Negative for activity change, appetite change, chills, fatigue and fever. HENT: Negative. Eyes: Negative for visual disturbance. Respiratory: Negative for cough, chest tightness, shortness of breath and wheezing. Cardiovascular: Negative. Negative for chest pain, palpitations and leg swelling. Gastrointestinal: Negative for abdominal distention, abdominal pain, constipation, diarrhea, nauseaand vomiting. Endocrine: Negative for polydipsia, polyphagia and polyuria. Genitourinary: Negative for flank pain. Musculoskeletal: Negative. Skin: Negative for color change, pallor, rash and wound. Neurological: Negative for dizziness, tremors, seizures, syncope, weakness, light-headedness, numbness and headaches. Psychiatric/Behavioral: Positive for confusion (reports some baseline confuson due to TBI). Pertinent positives and negatives are included in the HPI, otherwise at least ten systems were reviewed and negative. Past Medical and Surgical Histories, Social History, Medications, Allergies were reviewed in the chart. Vitals: ED Triage Vitals [09/29/21 1822] BP: 106/76 Heart Rate: 52 Resp: 16 Temp: 36.6 ??C (97.9 ??F) Temp src: Oral SpO2: 95 % O2 Device: RA O2 Flow Rate (L/min): n/a Physical Exam Constitutional: General: He is not in acute distress. Appearance: Normal appearance. He is normal weight. He is not ill-appearing, toxic-appearing or diaphoretic. HENT: Head: Normocephalic and atraumatic. Nose: Nose normal. No congestion or rhinorrhea. Mouth/Throat: Mouth: Mucous membranes are moist. Pharynx: Oropharynx is clear. Eyes: General: No scleral icterus. Extraocular Movements: Extraocular movements intact. Conjunctiva/sclera: Conjunctivae normal. Pupils: Pupils are equal, round, and reactive to light. Cardiovascular: Rate and Rhythm: Regular rhythm. Bradycardia present. Pulses: Normal pulses. Heart sounds: Normal heart sounds. No murmur heard. No friction rub. No gallop. Pulmonary: Effort: Pulmonary effort is normal. No respiratory distress. Breath sounds: Normal breath sounds. No wheezing, rhonchi or rales. Abdominal: General: Abdomen is flat. There is no distension. Palpations: Abdomen is soft. Tenderness: There is no abdominal tenderness. There is no guarding or rebound. Musculoskeletal: Right lower leg: No edema. Left lower leg: No edema. Skin: General: Skin is warm and dry. Coloration: Skin is not jaundiced or pale. Findings: No erythema or rash. Comments: New subclavian HD line on left anterior chest dressed with tegaderm. No surrounding erythema, edema or bleeding. Neurological: General: No focal deficit present. Mental Status: He is alert and oriented to person, place, and time. Mental status is at baseline. Psychiatric: Mood and Affect: Mood normal. Behavior: Behavior normal. ED Course: I have reviewed labs and imaging, images and available reports, and they are significant for: Last 3 wbc, hgb, hct plt Recent Labs 09/29/21 19305/23/21 0521 03/20/21 0705 WBC 6.1 8.3 5.6 HGB 11.4* 10.7* 11.7* HCT 33.8* 31.6* 35.8* PLATELET 175 143* 190 Last 3 Lytes Recent Labs 09/29/21 1935 09/29/21 1556 09/25/21 0808 05/23/21 0521 05/22/21 1535 NA 140 -- -- 135 137 K 7.5* 6.8* 7.4* 5.1* 6.0* CL 95* -- -- 96* 100 CO2 27 -- -- 27 27 BUN 81* -- -- 23* 30* CREATININE 11.83* -- -- 5.34* 6.52* GLUCOSE 96 -- -- 100 129 EKG: Sinus bradycardia with HR 45, QRS 82, ND 174, QTc 389. No evidence of peaked T waves Assessment and Plan: 61 y.o. male with history of TBI and ESRD on HD (M/W/F) who presents to the ED from interventional radiology after subclavian HD line placement for emergent dialysis in the setting of hyperkalemia. Patient asymptomatic upon arrival, hemodynamically stable, although mildly bradycardia to the mid 50s. Patient reporting he feels completely at his baseline and has no acute complaints. An EKG on admission did not show evidence of symptomatic hyperkalemia, with a normal QRS, absence of PT waves and otherwise normal intervals. Patient was given calcium gluconate, and insulin with dextrose for management of his hyperkalemia while awaiting hemodialysis. Nephrology consulted soon after patient arrival in the ED to coordinate HD. Laboratory workup in the ER notable for potassium 7.5. Patient underwent four hours of hemodialysis, consistent with his normal Wednesday HD session without complications. Fingerstick glucose remained in the 90s after insulin and dextrose infusion. Patient otherwise asymptomatic, without other obvious trigger for his hyperkalemia other than missing his usual for our session today in the setting of difficulty with HD line placement. Fortunately,he has adequate access after his IR placement of subclavian line today. Patient's line is clean and noninfected appearing without evidence of hematoma or bleeding. Additionally, no evidence of volumeoverload given absence of lower extremity edema, normal pulmonary exam and lack of symptoms. He also has no friction rub, and mental status appears to be at his baseline. After dialysis, patient technically medically ready for discharge, however due to his underlying TBI, patient does not drive himself and uses a ridesharing program from [facility] where he lives. Unfortunately, the rideshare program typically operates during business hours only or the early evening hours, however the patient did not complete his dialysis session until approximately 1 AM. Plan to spend the night overnight in the emergency room, and call for a ride tomorrow morning once ridesharing program is open. The visit findings, diagnosis, and care plan were discussed with the patient. The diagnosis and care plans discussions were outlined in the discharge instructions. The patient expressed understanding of the details of the visit, the return precautions and that he should returnto the ER at any time for worsening symptoms, new symptoms, or other concerns. he agrees with the follow- up plan. Susanna Gimenez MD Resident 09/30/21211 Associated attestation - Erwin Hernandez MD - 10/02/2021 2:07 PM EDT ED ATTENDING ATTESTATION NOTE The patient was seen in conjunction with the resident physician. I have independently performed thekey portions of the history and physical exam. I have personally reviewed nursing notes, vital signs, and diagnostic studies including labs, imaging studies and EKGs. I have discussed the details of the case with the resident and agree with the assessment and plan as described in the resident's note. 61-year-old male presents from interventional radiology after placing a new hemodialysis catheter for a prior failed catheter and missing a scheduled session of intermittent hemodialysis. The patientis hemodynamically stable with hyper kalemia. Nephrology was consulted to arrange intermittent hemodialysis in the emergency department. Prior to them arriving shifting therapy was given and dialysisbegun. Patient does not have any other immediate causes for hyperkalemia identified other than missing a session of hemodialysis. Does not require admission or further evaluation at this time. The only correction to Dr. Gimenez's note is this is a tunneled left IJ dialysis catheter and not a subclavian. Erwin Hernandez MD * Sven Mcdonnell, RN - 09/29/2021 8:16 PM EDT 1900H Received patient on stretcher, awake, alert, not in distress, on monitor worker and pulse oximeter. 2005H Moved to Room 14 for Dialysis procedure as instructed by Charge nurse on duty. tool rental technician arrived with machine. Vital signs pre-procedure checked and recorded, stable. Afebrile. No complaints,not in distress. 0110H Dialysis procedure over, tolerated well. Vital signs stable. 0230H Patient will stay overnight in ED until a ride is arranged in the morning. ED charge nurse Bhavesh aware. 0500H Patient resting in stretcher, noted equal chest rise and fall, stable. Continued to monitor. 0640H Provided something to eat and drink. 0650H Called [facility] and according to staff to call [phone] [facility] ([facility]) to set up a pick-up time for patient and bring him back to [address] [place] [address]. RCT will open at 8am. ED team aware. * Ruddy Dennis APRN - 09/29/2021 6:22 PM EDT Patient Name: Adama Ram Patient Age/: 61 y.o./1960 Encounter Date: 09/29/2021 Brief Provider Triage Note 61 y.o. male presents to the emergency department with reported hyperkalemia. Was in IR today for HD access evaluation. Post-procedure labs showed K 6.8. He had history of head injury. ESRD on HD. Received some medications in IR. Brief focused physical exam notable for alert male, very confused, in wheelchair, limited exam in triage. BP 106/76 (BP Location (NBP): Right arm, Patient Position: Sitting) Pulse 52 Temp 36.6 ??C (97.9 ??F) (Oral) Resp 16 Wt 86.2 kg (190 lb 0.6 oz) SpO2 95% BMI 27.27 kg/m?? Plan: labs and EKG Patient requires further evaluation, diagnosis and management in the emergency department. PPE worn during this encounter: Level 2 mask and Plastic safety goggles Ruddy Dennis APRN 09/29/21 1825 documented in this encounter Miscellaneous Notes * ED Triage - Odalis Colunga RN - 09/29/2021 6:23 PM EDT Pt from IR for HD. HPI (Adult) Stated Reason for Visit: pt from IR for HD, IV in place, new HD cath, pt confused with IV bag attached. History Obtained From: patient Precipitating Event(s): none Onset of Symptoms: sudden Duration (Hours): 1 documented in this encounter Plan of Treatment Not on file documented as of this encounter Procedures Procedure Name Priority Date/Time Associated Diagnosis Comments BASIC METABOLIC PANEL STAT 09/30/2021 7:10 AM EDT POCT GLUCOSE Routine 09/30/2021 6:34 AM EDT POCT GLUCOSE Routine 09/30/2021 1:03 AM EDT BLOOD GAS VENOUS POC Routine 09/29/2021 8:19 PM EDT HEMOGRAM STAT 09/29/2021 7:35 PM EDT DIFFERENTIAL, AUTOMATED STAT 09/29/2021 7:35 PM EDT HC CBC,PLT & AUTO DIFF STAT 09/29/2021 7:35 PM EDT HC PHOSPHORUS, SERUM STAT 09/29/2021 7:35 PM EDT HC MAGNESIUM, SERUM STAT 09/29/2021 7 :35 PM EDT BASIC METABOLIC PANEL STAT 09/29/2021 7:35 PM EDT EKG 12-LEAD STAT 09/29/2021 6:31 PM EDT documented in this encounter Results * (ABNORMAL) Basic Metabolic Panel (non-fasting) (09/30/2021 7:10 AM EDT) Glucose 120 65 - 199 mg/dL [facility] Comment:Diabetes: >=200 mg/d L plus symptoms Blood Urea Nitrogen 41(H) 10 - 20 mg/dL [facility] Comment:result rechecked- vh Creatinine 7.48(H) 0.80 - 1.50 mg/dL [facility] Comment:result rechecked- vh Sodium 135 135 - 145 mmol/L [facility] Potassium 6.1(Criti constance) 3.5 - 5.0 mmol/L [facility] Comment: result rechecked- vh ?Called by: , Read back by: Cammy Sandoval, Date/Time:09/30/21 08:33. Please note: ??Patients with WBC >100,000 may have falsely elevated Potassium levels. ??For accurate Potassium quantification in these patients send serum separator tube (gold top) for subsequent determinations. ??Contact the Clinical Chemistry Laboratory if there are any questions. Chloride 97(L) 98 - 107 mmol/L [facility] Carbon Dioxide 24 22 - 31 mmol/L [facility] Anion Gap 14 5 - 15 mmol/L [facility] Calcium 8.7 8.5 - 10.5 mg/dL [facility] Est Glomerular Filtration Rate 7(L) >=60 mL/min/1. 73 m?? [facility] Comment: This patient? s estimated glomerular filtration rate (eGFR) is between 7 mL/min/1.73 m2 (patients with less muscle mass per kg body weight) and 8 mL/min/1.73 m2 (patients with more muscle mass per kg body weight) as determined by the CKD-EPI equation. Assessment of eGFR is not appropriate when creatinine concentrations are rapidly changing. For clinical decisions where creatinine clearance will affect therapy, a 24-hour urine creatinine clearance may be advised. Assignment of CKD stage 1 - 5 for patients with an eGFR near the transition point between stages may be based on clinical assessment of muscle mass and symptoms in addition to eGFR. Blood 09/30/2021 7:10 AM EDT 09/30/2021 7:21 AM EDT Narrative Resulting Agency Comment Spec In Lab Gaby Mesa MD CHEMISTRY ORDERABLES [facility] [place] [address] * POCT Glucose (09/30/2021 6:34 AM EDT) Glucose, POC 80 65 - 199 mg/dL [facility] Comment: Supplemental ranges: <140 mg/dL before meals <180 mg/dL all other times of the day Blood 09/30/2021 6:34 AM EDT 09/30/2021 6:34 AM EDT Erwin Hernandez MD POINT OF CARE TEST ORDERABLES Performing Organization Address City/[facility]/ZIP Co de Phone Number [facility] [place] [address] * POCT Glucose (09/30/2021 1:03 AM EDT) Glucose, POC 95 65 - 199 mg/dL [facility] Comment: Supplemental ranges: <140 mg/dL before meals <180 mg/dL all other times of the day Blood 09/30/2021 1:03 AM EDT 09/30/2021 1:03 AM EDT Erwin Hernandez MD POINT OF CARE TEST ORDERABLES [facility] [place] [address] * (ABNORMAL) BLOOD GAS 2 VENOUS (09/29/2021 8:19 PM EDT) pH, Venous 7.35 7.32 - 7.42 [facility] PCO2, Venous 52(H) 41 - 51 mmHg [facility] PO2, Venous 26 25 - 40 mmHg [facility] Bicarbonate, Venous 27.8 mmol/L [facility] Base Excess, Venous 2.1 mmol/L [facility] Hgb Blood Gas 16.4 13.7 - 16.5 g/dL [facility] Oxyhemoglobin, Venous 37.9 % [facility] Carboxyhemoglob in, Venous 1.3 % [facility] Comment: Nonsmokers: 0.5-1.5% COHB Smokers: Variable, but usually less than 10% Toxic: 20-30% COHB Lethal: Greater than 60% COHB Methemoglobin, Venous 0.6 <=1.5 % [facility] Na Whole Blood 136 135 - 145 mmol/L [facility] K Whole Blood 7.2(Critic al) 3.5 - 5.0 mmol/L [facility] Comment: Please note: Patients with WBC >100,000 may have falsely elevated Potassium levels. Contact the Clinical Chemistry Laboratory if there are any questions. ICa Whole Blood 1.05(L) 1.15 - 1.33 mmol/L [facility] Comment: Note: ??Total bilirubin higher than 20 mg/dL may lead to falsely low ionized calcium. CL Whole Blood 97(L) 98 - 107 mmol/L [facility] Gluc Whole Bld 92 65 - 199 mg/dL [facility] Comment:Diabetes: >=200 mg/d L plus symptoms Lactate WB 1.6 0.5 - 2.2 mmol/L [facility] Blood Gas Source Venous [facility] Blood 09/29/2021 8:19 PM EDT 09/29/2021 8:19 PM EDT Erwin Hernandez MD POINT OF CARE TEST ORDERABLES Performing Organization Address City/[facility]/ZIP Co de Phone Number [facility] [place] [address] * Differential, Automated (09/29/2021 7:35 PM EDT) Neutrophil % 66.5 % [facility] Neutrophil Absolute 4.06 1.70 - 6.10 x10(3)/[facility] Lymph % 18.5 % [facility] Lymphocytes Abs 1.1 0.9 - 3.2 x10(3)/[facility] Monocyte % 8.8 % [facility] Monocyte Abs 0.5 0.3 - 0.9 x10(3)/[facility] Eos % 5.2 % [facility] Eosinophils Abs 0.3 0.0 - 0.4 x10(3)/[facility] Basophil % 0.5 % [facility] Baso Absolute 0.0 0.0 - 0.1 x10(3)/[facility] Immature Gran % 0.50 % [facility] Comment: Immature granulocytes(IG's)percentage and absolute count will include metamyelocytes, myelocytes, and promyelocytes. Blood smears from CBCs yielding IG's will be scanned manually for concordance. If this scan disagrees with the automated IG or if promyelocytes are noted, a manual differential will be performed. Immature Gran Absolute 0.03 0.00 - 0.04 x10(3)/[facility] Blood 09/29/2021 7:35 PM EDT 09/29/2021 8:10 PM EDT Narrative Resulting Agency Comment Spec In Lab Ruddy Dennis APRN HEMATOLOGY ORDERABLE S Performing Organization Address City/[facility]/ZIP Co de Phone Number [facility] [place] [address] * (ABNORMAL) Hemogram (09/29/2021 7:35 PM EDT) White Blood Cell 6.1 4.0 - 9.5 x10(3)/mc L [facility] Red Blood Cell 3.40(L) 4.58 - 5.54 x10(6)/mc L [facility] Hemoglobin 11.4(L) 13.7 - 16.5 g/dL [facility] Hematocrit 33.8(L) 40.5 - 48.5 % [facility] Mean Cell Volume 99.4(H) 82.9 - 93.1 fL [facility] Mean Cell Hemoglobin 33.5(H) 27.5 - 32.1 pg [facility] Mean Cell Hemoglobin Concentration 33.7 32.0 - 35.7 g/dL [facility] Platelet 175 145 - 357 x10(3)/[facility] RDW Standard Deviation 52.3(H) 36.0 - 45.0 [facility] RDW coefficient of variation 14.3(H) 11.4 - 13.8 % [facility] Mean Platelet Volume 8.5 7.6 - 12.9 [facility] NRBC% auto 0.0 % [facility] NRBC Absolute 0.000 0.000 - 0.000 x10(3)/mc L [facility] Blood 09/29/2021 7:35 PM EDT 09/29/2021 8:10 PM EDT Narrative Resulting Agency Comment Spec In Lab Ruddy Dennis 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 AUTOMATIC HEMATOLOGY ORDERABLE S [facility] [place] [address] * Phosphorus (09/29/2021 7:35 PM EDT) Phosphorus 4.0 2.5 - 4.5 mg/dL [facility] Blood 09/29/2021 7:35 PM EDT 09/29/2021 8:10 PM EDT Narrative Resulting Agency Comment Spec In Lab Ruddy Biz360coa 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 AUTOMATIC CHEMISTRY ORDERABLES Performing Organization Address City/[facility]/ZIP Co de Phone Number [facility] [place] [address] * Magnesium (09/29/2021 7:35 PM EDT) Magnesium 0.99 0.69 - 1.07 mmol/L [facility] Blood 09/29/2021 7:35 PM EDT 09/29/2021 8:10 PM EDT Narrative Resulting Agency Comment Spec In Lab [facility] CHEMISTRY ORDERABLES Performing Organization Address [facility] Co de Phone Number [facility] [place] [address] * (ABNORMAL) Basic Metabolic Panel (non-fasting) (09/29/2021 7:35 PM EDT) Glucose 96 65 - 199 mg/dL [facility] Comment:Diabetes: >=200 mg/d L plus symptoms Blood Urea Nitrogen 81(H) 10 - 20 mg/dL [facility] Creatinine 11.83(Cri tical) 0.80 - 1.50 mg/dL [facility] Comment:called by EB/read ba ck by Miriam Lambert 09-29-21 @ 2056 Sodium 140 135 - 145 mmol/L [facility] Potassium 7.5(Criti constance) 3.5 - 5.0 mmol/L [facility] Comment: called by EB/read back by Miriam Lambert [id number] Please note: ??Patients with WBC >100,000 may have falsely elevated Potassium levels. ??For accurate Potassium quantification in these patients send serum separator tube (gold top) for subsequent determinations. ??Contact the Clinical Chemistry Laboratory if there are any questions. Chloride 95(L) 98 - 107 mmol/L [facility] Carbon Dioxide 27 22 - 31 mmol/L [facility] Anion Gap 18(H) 5 - 15 mmol/L [facility] Calcium 8.9 8.5 - 10.5 mg/dL [facility] Est Glomerular Filtration Rate 4(L) >=60 mL/min/1. 73 m?? [facility] Comment: This patient? s estimated glomerular filtration rate (eGFR) is between 4 mL/min/1.73 m2 (patients with less muscle mass per kg body weight) and 5 mL/min/1.73 m2 (patients with more muscle mass per kg body weight) as determined by the CKD-EPI equation. Assessment of eGFR is not appropriate when creatinine concentrations are rapidly changing. For clinical decisions where creatinine clearance will affect therapy, a 24-hour urine creatinine clearance may be advised. Assignment of CKD stage 1 - 5 for patients with an eGFR near the transition point between stages may be based on clinical assessment of muscle mass and symptoms in addition to eGFR. Blood 09/29/2021 7:35 PM EDT 09/29/2021 8:10 PM EDT Narrative Resulting Agency Comment Spec In Lab Ruddy Dennis APRN CHEMISTRY ORDERABLES [facility] [place] [address] * EKG 12 Lead (09/29/2021 6:31 PM EDT) Ventricular rate 45 BPM MUSE SYSTEM Atrial Rate 45 BPM MUSE SYSTEM P-R Interval 174 ms MUSE SYSTEM QRS Duration 82 ms MUSE SYSTEM Q-T Interval 450 ms MUSE SYSTEM QTC Calculated (Bezet) 389 ms MUSE SYSTEM Calculated P Seney 66 degrees MUSE SYSTEM Calculated R Seney 42 degrees MUSE SYSTEM Calculated T Seney 59 degrees MUSE SYSTEM INTERPRETATION Sinus bradycardia Otherwise normal ECG When compared with ECG of 25-SEP-2021 09:57, No significant change was found Confirmed by MD Supa, Anand Berman ([id number]) on 09/30/2021 12:03:10 PM MUSE SYSTEM 09/29/2021 6:31 PM EDT 09/30/2021 12:03 PM EDT Ruddy Dennis 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 AUTOMATIC ECG ORDERABLES [facility] documented in this encounter Visit Diagnoses Diagnosis Hyperkalemia- Primary Hyperpotassemia Encounter for acute hemodialysis Encounter for extracorporeal dialysis documented in this encounter Administered Medications Inactive Administered Medications - up to 3 most recent administrations Medication Order MAR Action Action Date Dose Rate Site calcium gluconate 1g in sodium chloride 0.9% 50mL 1 g, Intravenous, ONCE, 1 dose, On Wed09/29/21 at 1839, Administer over 6 Minutes, Warning Vesicant/Irritant Medication Patient must be on monitor worker when receiving calcium; calcium can exacerbate digoxin toxicity. Since the effect of calcium is transient, patients with hyperkalemia also require treatments to shift potassium into cells and increase potassium excretion. Infusion over 6 minutes - Bedside monitor required. New Bag 09/29/2021 7:44 PM EDT 1 g 500 mL/hr dextrose 10% 250 mL IV bolus at 1,000 mL/hr, Intravenous, ONCE, 1 dose, On Wed09/29/21 at 1859, Give 250 mL of dextrose 10% intravenously immediately followed by regular insulin 10 units intravenously. New Bag 09/29/2021 7:44 PM EDT 1000 mL/hr heparin (porcine) (1,000 units/mL) injection 1,000-10,000 Units 1,000-10,000 Units, Intercatheter, ONCE IN DIALYSIS PRN, 1 dose, Starting on Wed09/29/21 at 1922, Until Wed09/30/21 at 0009, Line Care, Per Protocol, Catheter lock use catheter specified fill volume per dialysis protocol. For use in Dialysis only. Procedure ID: [id number] (Hemodialysis CVAD Procedure - Care and Maintenance) in Clinical Policies., Dialysis (Intra-Procedure), Routine Given 09/30/2021 12:09 AM EDT 4,400 Units heparin (porcine) (1,000 units/mL) injection 6,000 Units 6,000 Units, Intravenous, ONCE IN DIALYSIS, 1 dose, On Wed09/29/21 at 1924, For use in Dialysis only., Dialysis (Intra-Procedure), Routine Given 09/29/2021 8:15 PM EDT 6,000 Units insulin regular (HumuLIN R,NovoLIN R) (100 unit/mL) injection vial 10 Units 10 Units, Intravenous, ONCE, 1 dose, On Wed09/29/21 at 1859, Give 250 mL of dextrose 10% Intravenously immediately followed by regular insulin 10 units Intravenously. Monitor BG one hour after insulin administration and then every two hours X 2 and PRN., Routine Given 09/29/2021 7:43 PM EDT 10 Units documented in this encounter Active and Recently Administered Medications Times are shown in EDT. Scheduled Medication Order 09/28/2021 09/29/2021 09/30/2021 calcium gluconate 1g in sodium chloride 0.9% 50mL (COMPLETED) 1 g, Intravenous, ONCE, 1 dose, On Wed09/29/21 at 1839, Administer over 6 Minutes, Warning Vesicant/Irritant Medication Patient must be on monitor worker when receiving calcium; calcium can exacerbate digoxin toxicity. Since the effect of calcium is transient, patients with hyperkalemia also require treatments to shift potassium into cells and increase potassium excretion. Infusion over 6 minutes - Bedside monitor required. 1943 (New Bag - Provider: Sven Mcdonnell RN)1949 (Stopped - Provider: Sven Mcdonnell RN) dextrose 10% 250 mL IV bolus (COMPLETED)(Linked Group 1) at 1,000 mL/hr, Intravenous, ONCE, 1 dose, On Wed09/29/21 at 1859, Give 250 mL of dextrose 10% intravenously immediately followed by regular insulin 10 units intravenously. 1943 (New Bag - Provider: Sven Mcdonnell RN)1958 (Stopped - Provider: Sven Mcdonnell RN) heparin (porcine) (1,000 units/mL) injection 6,000 Units (COMPLETED) 6,000 Units, Intravenous, ONCE IN DIALYSIS, 1 dose, On Wed09/29/21 at 1924, For use in Dialysis only., Dialysis (Intra-Procedure), Routine 2014 (Given - Provider: Lauren Mcfarland RN) insulin regular (HumuLIN R,NovoLIN R) (100 unit/mL) injection vial 10 Units (COMPLETED)(Linked Group 1) 10 Units, Intravenous, ONCE, 1 dose, On Wed09/29/21 at 1859, Give 250 mL of dextrose 10% Intravenously immediately followed by regular insulin 10 units Intravenously. Monitor BG one hour after insulin administration and then every two hours X 2 and PRN., Routine 1942 (Given - Provider: Sven Mcdonnell, SAVANNA) PRN Medication Order 09/28/2021 09/29/2021 09/30/2021 heparin (porcine) (1,000 units/mL) injection 1,000-10,000 Units (COMPLETED) 1,000-10,000 Units, Intercatheter, ONCE IN DIALYSIS PRN, 1 dose, Starting on Wed09/29/21 at 1922, Until Wed09/30/21 at 0009, Line Care, Per Protocol, Catheter lock use catheter specified fill volume per dialysis protocol. For use in Dialysis only. Procedure ID: [id number] (Hemodialysis CVAD Procedure - Care and Maintenance) in Clinical Policies., Dialysis (Intra-Procedure), Routine 000 (Given - Provid er: Vee Mcfarland RN) Linked Groups Order Group 1: dextrose 10% 250 mL IV bolus (COMPLETED)Jump to med at 1,000 mL/hr, Intravenous, ONCE, 1 dose, On Wed09/29/21 at 1859, Give 250 mL of dextrose 10% intravenously immediately followed by regular insulin 10 units intravenously. And insulin regular (HumuLIN R,NovoLIN R) (100 unit/mL) injection vial 10 Units (COMPLETED)Jump to med 10 Units, Intravenous, ONCE, 1 dose, On Wed09/29/21 at 1859, Give 250 mL of dextrose 10% Intravenously immediately followed by regular insulin 10 units Intravenously. Monitor BG one hour after insulin administration and then every two hours X 2 and PRN., Routine And POCT Fingerstick Glucose (CANCELED) STAT, EVERY HOUR, First occurrence on Wed09/29/21 at 1900, Last occurrence on Wed09/29/21 at 1900, For 1 occurrence, Check blood glucose one hour after insulin administration. And POCT Fingerstick Glucose (CANCELED) Routine, EVERY 2 HOURS, First occurrence on Wed09/29/21 at 2000, Last occurrence on Wed09/29/21 at 2200, For 2 occurrences, Check blood glucose two hours after the last STAT blood glucose check documented in this encounter Care Teams Research Instrumentation Technician Relationship Specialty Start Date End Date Carroll Fuentes DO [address] [place] [id number] PCP - General 09/23/11 10/20/22 documented as of this encounter
--- OUTSIDE RECORDS SUMMARY | 2024-04-22 10:52 | XMS_ITS | Encounter Summary ---
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 Operator Name Role Phone AflredoCarroll allison Primary Care Provider [phone] Reason for Referral * Diagnostic Test (Routine) - Closed Specialty Diagnoses / Procedures Referred By Shashi ko Referred To Contact Radiology Diagnoses ESRD (end stage renal disease) Procedures IR Dialysis Access - AV Fistula Evaluations Luna Solorio [facility] [place] [address] [place] [address] Referral ID Status Reason Start Date Expiration Date V isits Requested Visits Authorized [id number] Closed Specialty Service Requested 09/24/2021 03/27/2023 1 1 Reason for Visit * Diagnostic Test (Routine) - Closed Specialty Diagnoses / Procedures Referred By Shashi ko Referred To Contact Radiology Diagnoses ESRD (end stage renal disease) Procedures IR Dialysis Access - AV Fistula Evaluations Luna Solorio TIME CYCLE OPERATOR [facility] [place] [address] [place] [address] Referral ID Status Reason Start Date Expiration Date V isits Requested Visits Authorized [id number] Closed Specialty Service Requested 09/24/2021 03/27/2023 1 1 Encounter Details Date Type Department Care Team (Latest Contact Info) Description 09/25/2021 6:17 AM EDT - 09/25/2021 11:59 PM EDT Hospital [place] [address] Luna Solorio TIME CYCLE OPERATOR [facility] [place] [address] Pre-op testing; ESRD (end stage renal disease) on dialysis; ESRD (end stage renal disease); CKD (chronic kidney disease) stage 5, GFR less than 15 ml/min Discharge Disposition: Home Social History Tobacco Use [...] Sign Reading Time Taken Comments Blood Pressure 136/59 09/25/2021 4:20 PM EDT Pulse 54 09/25/2021 12:30 PM EDT Temperature 36.5 ??C (97.7 ??F) 09/25/2021 9:40 AM ED T Respiratory Rate 16 09/25/2021 4:20 PM EDT Oxygen Saturation 97% 09/25/2021 4:20 PM EDT Inhaled Oxygen Concentration - - Weight - - Height - - Body Mass Index - - documented in this encounter Discharge Instructions * Discharge Instructions* Sana Gay, RN - 09/25/2021 8:03 AM EDT [facility] Vascular and Interventional Radiology Discharge Instructions after [...] is during regular office hours, please call [phone]. If it is after regular office hours, or on weekends or holidays, please call [phone] and ask to speak to the Chief Information Officer event specialist food demonstrator for Interventional Radiology. You have received medication [...] Progress Notes * Anand Gallo RN - 09/25/2021 4:23 PM EDT Patient returned from Dialysis to await transportation that has been scheduled for 1700. * Sana Gay RN - 09/25/2021 9:43 AM EDT Pt transferred to post procedure, he tolerated procedure. Report given to post proc Silviano CORRALES who was informed regarding pt awaiting for dialysis chair and Md forauer putting in order to address elevated K. * Sana Gay RN - 09/25/2021 9:11 AM EDT [facility] Name: CHRISTY AMBROSE Date of : 1960 AGE: 61 y.o. Address: [address] [address] Phone: [phone] (home) Mobile: Telephone Information: Referring Provider: Luna Solorio REASON FOR VISIT: Order Questions Answers Where will study be performed? [facility] Radiology [120] Laterality Right Is the patient on anticoagulant / antiplatelet therapy ? Aspirin Reason for exam and clinical history: R thigh AVG clotted Planned procedure: RIGHT SFA-SFV loop AVG fistulagram Labs to be performed day of procedure: INR; PLT; Potassium Sedation: Moderate (Conscious sedation) Prophylactic antibiotic : None Contrast: Omnipaque Additional medications for procedure: Lidocaine Position: Supine Consent: Pending Medications to discontinue [...] C44.329 ??? 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 [...] 03/20/21 HD Tunneled line exchange??/ angioplasty at [facility] Local only, tolerated well 09/25/21 RLE fistulagram Fentanyl 100 mcg IV, Heparin IV 3000 units, Cathflo 4 mg intra catheter, pttolerated procedure he denied pain pt run SB ? 0800 this nurse took over procedure report received from Yamilet Oliveira. Fistulagrams Post Procedure Site: Right tight Time sheath removed: First 918 , Second 919 Tip stop time: No tip stop used Tip stop removal: Laboratory Results: Lab Results Component Value Date INR 0.9 08/03/2018 Lab Results Component Value Date CREATININE 5.34 (H) 05/23/2021 Lab Results Component Value Date K 5.1 (H) 05/23/2021 Lab Results Component Value Date PLATELET 143 (L) 05/23/2021 documented in this encounter H&P Notes * Aaron Duran PA - 09/25/2021 11:59 PM EDT Interventional Radiology Focused Pre-procedure H&P: PCP: Carroll Fuentes DO Referring Provider: Luna Solorio Planned procedure: Tunneled HD line Procedure indication: Clotted AVG IR workflow: Received call from [facility] dialysis regarding clotted/thrombosed AVG Order Questions Answers Where will study be performed? [facility] Radiology [120] Laterality Right Is the patient on anticoagulant / antiplatelet therapy ? Aspirin Reason for exam and clinical history: R thigh AVG clotted History of present illness: Per chart review, Christy Ambrose is a 61 y.o. 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 This graft was recently Evaluated on 09/25/21 and found to be thrombosed s/p TPA administration, venous anastomosis NARRATIVE WRITER to 8mm and Vel balloon sweep who [...] 03/20/21 HD Tunneled line exchange??/ angioplasty at [facility] Local only, tolerated well 09/25/21 RLE fistulagram [...] C44.329 ??? 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 [...] AV Fistula Evaluations 11/30/2019 Sabrina Velez MD [facility] INTERVENTIONL RAD ??? IR DIALYSIS ACCESS - AV FISTULA EVALUATIONS 01/07/2021 IR Dialysis Access - AV Fistula Evaluations 01/07/2021 Sabrina Velez MD [facility] INTERVENTIONL RAD ??? IR DIALYSIS ACCESS - AV FISTULA EVALUATIONS 09/25/2021 IR Dialysis Access - AV Fistula Evaluations 09/25/2021 Kanu Apple MD [facility] INTERVENTIONL RAD ??? IR DIALYSIS ACCESS - TUNNELED LINE 07/30/2018 IR Dialysis Access - Tunneled Line 07/30/2018 Walt Lin MD [facility] INTERVENTIONL RAD ??? IR DIALYSIS ACCESS - TUNNELED LINE 08/30/2018 IR Dialysis Access - Tunneled Line 08/30/2018 Erwin Simon APRN [facility] INTERVENTIONL RAD ??? IR DIALYSIS ACCESS - TUNNELED LINE 12/27/2020 IR Dialysis Access - Tunneled Line 12/27/2020 Kanu Apple MD [facility] INTERVENTIONL RAD ??? IR DIALYSIS ACCESS - TUNNELED LINE 01/23/2021 IR Dialysis Access - Tunneled Line 01/23/2021 Kanu Apple MD [facility] INTERVENTIONL RAD ??? IR DIALYSIS ACCESS - TUNNELED LINE 03/20/2021 IR Dialysis Access - Tunneled Line 03/20/2021 Tab Harmon MD [facility] INTERVENTIONL RAD ??? IR LINE OR TUBE REMOVAL IN RECOVERY ROOM 07/31/2021 IR Line or Tube Removal in Recovery Room 07/31/2021 [facility] INTERVENTIONL RAD ??? KIDNEY TRANSPLANT KIDNEY TRANSPLANT / RECIPIENT/LT Procedure Date: 11/26/2002 ??? PRO ANASTOMOSIS, AV, ANY SITE Right 05/22/2021 AV FISTULA CREATION, DIRECT HEMODIALYSIS, ANY SITE, EG MADYSON FISTULA LOWER EXTREMITY (WRVU 11.9) performed by Odalis Elias MD at [facility] MAIN OR ??? PRO CREAT AV FISTULA, NON-AUTOGENOUS GRAFT Right 12/13/2018 PLACEMENT, AV HEMODIALYSIS GRAFT, SYNTHETIC GRAFT, UPPER EXTREMITY (WRVU 12.03) performed by Mary Garay MD at [facility] OR ??? PRO CREAT AV FISTULA, NON-AUTOGENOUS GRAFT Left 04/03/2021 PLACEMENT, AV HEMODIALYSIS GRAFT, SYNTHETIC GRAFT, UPPER EXTREMITY (WRVU 12.03) performed by Odalis Elias MD at [facility] OR ? ? PRO DEBRIDEMENT SUBCUTANEOUS TISSUE 20 SQCM/< Left 02/20/2016 DEBRIDEMENT SKIN AND SUBCU, HEAD/NECK performed by Miguel Angel Moreno MD at [facility] OR ??? PRO DECOMPRESS FOREARM, BRACH ART EXPLOR Left 04/06/2018 FASCIOTOMY, FOREARM, WITH BRACHIAL ARTERY EXPLORATION (WRVU 8.41) performed by Lida Peter, Edgard [facility] OR ??? PRO DIRECT REPAIR RUPTURED ANEURYSM, AXILLO-BRACHIAL ARM INCIS Left 04/06/2018 @REPAIR, RUPTURED AXILLARY OR BRACHIAL ARTERY ANEURYSM BY ARM INCISION (WRVU *) performed by Lida Peter MD at [facility] MAIN OR ??? PRO EXC PAROTD, TOTAL, UNILAT RAD NECK Left 02/05/2016 @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, TOTAL, WITH UNILATERAL RADICAL NECK DISSECTION performed by Miguel Angel Moreno MD at [facility] MAIN OR ??? PRO EXC SKIN MALIG 3.1-4CM FACE, FACIAL Left 02/05/2016 EXC MALIGNANT LESION, 3.1 TO 4.0CM, FACE performed by Miguel Angel Moreno MD at [facility] OR ? ? PRO EXC SKIN MALIG >4CM TRUNK, ARM, LEG 04/19/2012 EXC MALIGNANT LESION, MICHAEL > 4.0CM, TRUNK performed by SABRINA SANCHEZ at [facility] OR ??? PRO LAP, RADICAL NEPHRECTOMY Left 05/31/2017 @LAPAROSCOPY, RADICAL NEPHRECTOMY (WRVU 25.06) performed by Jax Mills MD at [facility] OR ??? PRO LIGATN ANGIOACCESS AV FISTULA Left 04/19/2018 LIGATION OR BANDING OF HEMODIALYSIS FISTULA OR GRAFT UPPER EXTREMITY (WRVU 6.25) performed by Odalis Elias MD at [facility] MAIN OR ??? PRO NEGATIVE PRESSURE WOUND THERAPY, LESS THAN OR EQUAL TO 50 SQCM Left 04/19/2018 DRESSING CHANGE (VAC ASSISTED) UP TO 50SQ.CM (WRVU 0.55) performed by Odalis Elias MD [facility] OR ??? PRO PHLEB VEINS - EXTREM - TO 20 Right 05/22/2021 STAB PHLEBECTOMY LISBET VEINS 1 EXTREMITY 10-20 INCISIONS (WRVU 7.71) performed by Odalis Elias MD at [facility] OR ??? PRO REBL VES GRAFT, UP EXTREM Left 04/06/2018 REPAIR BLOOD VESSEL WITH GRAFT OTHER THAN VEIN, UPPER EXTREMITY (WRVU 15.83) performed by Lida Peter MD at [facility] OR ??? PRO RELIEVE PRESSURE ON NERVE(S) Left 04/06/2018 (MSURG) CARPAL TUNNEL (WRVU 4.82) performed by Silviano Sparks MD at [facility] OR ??? PRO REPAIR INTERMEDIATE S/A/T/E 2.6-7.5 CM 04/19/2012 REPAIR INTERMEDIATE WOUND, (NO HANDS OR FEET) 2.6 TO 7.5CM, UPPER EXTREMITY performed by SABRINA SANCHEZ at [facility] MAIN OR ? ? PRO REPAIR INTERMEDIATE S/A/T/E > 30.0 CM Left 04/14/2018 REPAIR INTERMEDIATE WOUND, (NO HANDS OR FEET) >30.0CM, UPPER EXTREMITY (WRVU 5) performed by Yimi Easton MD at [facility] MAIN OR ??? PRO REVISE MEDIAN N/CARPAL TUNNEL SURG Left 04/06/2018 MEDIAN NERVE DECOMPRESSION (CARPAL TUNNEL RELEASE) (WRVU 4.97) performed by Lida Peter MD [facility] MAIN OR ? ? PRO SPLIT GRFT TRUNK, ARM, LEG <100SQCM Left 04/26/2018 SPLIT THICK SKIN GRAFT,100 SQ CM OR LESS, ARMS (WRVU 9.9) performed by Silviano Sparks MD at [facility] MAIN OR ? ? PRO SPLIT GRFT, HEAD, FAC, HAND, FEET <100SQCM N/A 02/20/2016 SPLIT THICKNESS SKIN SPLIT GRAFT,100SQ CM OR LESS, NECK performed by Miguel Angel Moreno MD at [facility] MAIN OR ??? PRO SPLIT GRFT, TRUNK, ARM, LEG EA 100SQCM N/A 04/26/2018 EA.ADDITIONAL 100SQ.CM STSG (WRVU 1.72) performed by Silviano Sparks MD at [facility] MAIN OR ??? PRO UNLISTED PROCEDURE VASCULAR SURGERY Left 11/20/2015 LIGATION\REPAIR AV FISTULA performed by Camilo Ireland MD at [facility] MAIN OR ??? PRO UNLISTED PROCEDURE VASCULAR SURGERY Left 11/20/2015 EXCISION VEIN FROM HAND performed by Camilo Ireland MD at [facility] MAIN OR ??? PRO UPPER GI ENDOSCOPY, BIOPSY N/A 05/13/2017 EGD WITH BIOPSY (WRVU 2.49) performed by Aditya Barrera MD at [facility] ENDOSCOPY ??? US RENAL TRANSPLANT BIOPSY 12/31/2010 ??? US RENAL TRANSPLANT RIGHT Right 06/04/2018 US Renal Transplant Right 06/04/2018 [facility] RAD ULTRASOUND Social history and [...] the day of procedure) 09/29/2021 PANCHITO Wallace * Mallory Caballero PA - 09/25/2021 7:04 AM EDT INTERVENTIONAL RADIOLOGY FOCUSED H&P: Procedure: Planned procedure: RIGHT SFA-SFV loop AVG fistulagram The patient's history and physical exam have been reviewed and completed. Patient ate this morning. He will receive fentanyl only for the procedure. Physical Exam: Cardiovascular: Regular, Normal Pulmonary: Breath sounds clear to auscultation Vascular: RLE AVF without palpable thrill. Distal sensation and motor intact. DP and PT pulses 2+. CR <2 sec. The planned procedure (and sedation plan if appropriate) , its benefits and risks, and alternativeswere discussed with the patient. The patient consented to the procedure. PRE-SEDATION ASSESSMENT: Sedation Plan: minimal (single agent only) Confirm NPO status: Yes History of anesthetic complications: No Current medications reviewed: Yes Allergies reviewed: Yes Source Note - Grace Parsons MD - 09/24/2021 9:38 AM EDT INTERVENTIONAL RADIOLOGY FOCUSED H&P and PRE-PROCEDURE NOTE: PCP: Carroll Fuentes DO Referring Provider: Luna Solorio Planned Procedure: Planned procedure: RIGHT SFA-SFV loop AVG fistulagram Procedure Indication: Concern for clotted dialysis graft Procedure request received through Interventional Radiology eDH order queue. Order Questions Answers Where will study be performed? [facility] Radiology [120] Laterality Right Is the patient on anticoagulant / antiplatelet therapy ? Aspirin Reason for exam and clinical history: R thigh AVG clotted Presenting Diagnosis/ Complaint: Christy Ambrose is a 61 y.o. male with PMH of ESRD s/p transplant [id number] with graft failure now on dialysis with multiple failed access sites in both upper extermities. He had a L brachio-axillary graft (03/2021, Dr. Elias) which in December of 2021 was found to be occluded (outflow stenosis) and was unable to be opened. At this point IR placed a tunneled HD catheter. He later had creation of a RIGHT SFA-SFV loop AVG (counterclockwise flow of blood in graft) on 05/2021 with 4-7mm tapered PTFE. His HD catheter was removed on 07/28/20. He now presents for an evaluation of his right thigh AVG due to concern for clot. Past Medical/Surgical History: Patient Active Problem List [...] C44.329 ??? 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 [...] AV Fistula Evaluations 11/30/2019 Sabrina Velez MD [facility] INTERVENTIONL RAD ??? IR DIALYSIS ACCESS - AV FISTULA EVALUATIONS 01/07/2021 IR Dialysis Access - AV Fistula Evaluations 01/07/2021 Sabrina Velez MD [facility] INTERVENTIONL RAD ??? IR DIALYSIS ACCESS - TUNNELED LINE 07/30/2018 IR Dialysis Access - Tunneled Line 07/30/2018 Walt Lin MD [facility] INTERVENTIONL RAD ??? IR DIALYSIS ACCESS - TUNNELED LINE 08/30/2018 IR Dialysis Access - Tunneled Line 08/30/2018 Erwin Simon, CATRACHITO [facility] INTERVENTIONL RAD ??? IR DIALYSIS ACCESS - TUNNELED LINE 12/27/2020 IR Dialysis Access - Tunneled Line 12/27/2020 Kanu Apple MD [facility] INTERVENTIONL RAD ??? IR DIALYSIS ACCESS - TUNNELED LINE 01/23/2021 IR Dialysis Access - Tunneled Line 01/23/2021 Kanu Apple MD [facility] INTERVENTIONL RAD ??? IR DIALYSIS ACCESS - TUNNELED LINE 03/20/2021 IR Dialysis Access - Tunneled Line 03/20/2021 Tab Harmon MD [facility] INTERVENTIONL RAD ??? IR LINE OR TUBE REMOVAL IN RECOVERY ROOM 07/31/2021 IR Line or Tube Removal in Recovery Room 07/31/2021 [facility] INTERVENTIONL RAD ??? KIDNEY TRANSPLANT KIDNEY TRANSPLANT / RECIPIENT/LT Procedure Date: 11/26/2002 ??? PRO ANASTOMOSIS, AV, ANY SITE Right 05/22/2021 AV FISTULA CREATION, DIRECT HEMODIALYSIS, ANY SITE, EG MADYSON FISTULA LOWER EXTREMITY (WRVU 11.9) performed by Odalis Elias MD at [facility] OR ??? PRO CREAT AV FISTULA, NON-AUTOGENOUS GRAFT Right 12/13/2018 PLACEMENT, AV HEMODIALYSIS GRAFT, SYNTHETIC GRAFT, UPPER EXTREMITY (WRVU 12.03) performed by Mary Garay MD at [facility] OR ??? PRO CREAT AV FISTULA, NON-AUTOGENOUS GRAFT Left 04/03/2021 PLACEMENT, AV HEMODIALYSIS GRAFT, SYNTHETIC GRAFT, UPPER EXTREMITY (WRVU 12.03) performed by Odalis Elias MD at [facility] OR ? ? PRO DEBRIDEMENT SUBCUTANEOUS TISSUE 20 SQCM/< Left 02/20/2016 DEBRIDEMENT SKIN AND SUBCU, HEAD/NECK performed by Miguel Angel Moreno MD at [facility] OR ??? PRO DECOMPRESS FOREARM, BRACH ART EXPLOR Left 04/06/2018 FASCIOTOMY, FOREARM, WITH BRACHIAL ARTERY EXPLORATION (WRVU 8.41) performed by Lida Peter MDat [facility] OR ??? PRO DIRECT REPAIR RUPTURED ANEURYSM, AXILLO-BRACHIAL ARM INCIS Left 04/06/2018 @REPAIR, RUPTURED AXILLARY OR BRACHIAL ARTERY ANEURYSM BY ARM INCISION (WRVU *) performed by Lida Peter MD at [facility] OR ??? PRO EXC PAROTD, TOTAL, UNILAT RAD NECK Left 02/05/2016 @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, TOTAL, WITH UNILATERAL RADICAL NECK DISSECTION performed by Miguel Angel Moreno MD at [facility] OR ??? PRO EXC SKIN MALIG 3.1-4CM FACE, FACIAL Left 02/05/2016 EXC MALIGNANT LESION, 3.1 TO 4.0CM, FACE performed by Miguel Angel Moreno MD at [facility] OR ? ? PRO EXC SKIN MALIG >4CM TRUNK, ARM, LEG 04/19/2012 EXC MALIGNANT LESION, MICHAEL > 4.0CM, TRUNK performed by SABRINA SANCHEZ at [facility] OR ??? PRO LAP, RADICAL NEPHRECTOMY Left 05/31/2017 @LAPAROSCOPY, RADICAL NEPHRECTOMY (WRVU 25.06) performed by Jax Mills MD at [facility] MAIN OR ??? PRO LIGATN ANGIOACCESS AV FISTULA Left 04/19/2018 LIGATION OR BANDING OF HEMODIALYSIS FISTULA OR GRAFT UPPER EXTREMITY (WRVU 6.25) performed by Odalis Elias MD at [facility] MAIN OR ??? PRO NEGATIVE PRESSURE WOUND THERAPY, LESS THAN OR EQUAL TO 50 SQCM Left 04/19/2018 DRESSING CHANGE (VAC ASSISTED) UP TO 50SQ.CM (WRVU 0.55) performed by Odalis Elias MD [facility] MAIN OR ??? PRO PHLEB VEINS - EXTREM - TO 20 Right 05/22/2021 STAB PHLEBECTOMY LISBET VEINS 1 EXTREMITY 10-20 INCISIONS (WRVU 7.71) performed by Odalis Elias MD at [facility] MAIN OR ??? PRO REBL VES GRAFT, UP EXTREM Left 04/06/2018 REPAIR BLOOD VESSEL WITH GRAFT OTHER THAN VEIN, UPPER EXTREMITY (WRVU 15.83) performed by Lida Peter MD at [facility] MAIN OR ??? PRO RELIEVE PRESSURE ON NERVE(S) Left 04/06/2018 (MSURG) CARPAL TUNNEL (WRVU 4.82) performed by Silviano Sparks MD at [facility] MAIN OR ??? PRO REPAIR INTERMEDIATE S/A/T/E 2.6-7.5 CM 04/19/2012 REPAIR INTERMEDIATE WOUND, (NO HANDS OR FEET) 2.6 TO 7.5CM, UPPER EXTREMITY performed by SABRINA SANCHEZ at [facility] MAIN OR ? ? PRO REPAIR INTERMEDIATE S/A/T/E > 30.0 CM Left 04/14/2018 REPAIR INTERMEDIATE WOUND, (NO HANDS OR FEET) >30.0CM, UPPER EXTREMITY (WRVU 5) performed by Yimi Easton MD at [facility] MAIN OR ??? PRO REVISE MEDIAN N/CARPAL TUNNEL SURG Left 04/06/2018 MEDIAN NERVE DECOMPRESSION (CARPAL TUNNEL RELEASE) (WRVU 4.97) performed by Lida Peter MD [facility] MAIN OR ? ? PRO SPLIT GRFT TRUNK, ARM, LEG <100SQCM Left 04/26/2018 SPLIT THICK SKIN GRAFT,100 SQ CM OR LESS, ARMS (WRVU 9.9) performed by Silviano Sparks MD at [facility] MAIN OR ? ? PRO SPLIT GRFT, HEAD, FAC, HAND, FEET <100SQCM N/A 02/20/2016 SPLIT THICKNESS SKIN SPLIT GRAFT,100SQ CM OR LESS, NECK performed by Miguel Angel Moreno MD at [facility] MAIN OR ??? PRO SPLIT GRFT, TRUNK, ARM, LEG EA 100SQCM N/A 04/26/2018 EA.ADDITIONAL 100SQ.CM STSG (WRVU 1.72) performed by Silviano Sparks MD at [facility] MAIN OR ??? PRO UNLISTED PROCEDURE VASCULAR SURGERY Left 11/20/2015 LIGATION\REPAIR AV FISTULA performed by Camilo Ireland MD at [facility] MAIN OR ??? PRO UNLISTED PROCEDURE VASCULAR SURGERY Left 11/20/2015 EXCISION VEIN FROM HAND performed by Camilo Ireland MD at [facility] MAIN OR ??? PRO UPPER GI ENDOSCOPY, BIOPSY N/A 05/13/2017 EGD WITH BIOPSY (WRVU 2.49) performed by Aditya Barrera MD at [facility] ENDOSCOPY ??? US RENAL TRANSPLANT BIOPSY 12/31/2010 ??? US RENAL TRANSPLANT RIGHT Right 06/04/2018 US Renal Transplant Right 06/04/2018 [facility] RAD ULTRASOUND Medications: Current Outpatient Medications on File Prior [...] facility-administered medications on file prior to encounter. Allergies: Benazepril hcl, Codeine, Hydrochlorothiazide, and Pollen extracts Social History and Habits: Social History Socioeconomic History ??? Marital status: Single Spouse name: Not on file ??? Number of children: Not on file ??? Years of education: Not on file ??? Highest education level: Not on file Occupational History ??? 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 Smoking status: Former Smoker [...] Labs: Lab Results Component Value Date WBC 8.3 05/23/2021 HCT 31.6 (L) 05/23/2021 PLATELET 143 (L) 05/23/2021 INR 0.9 08/03/2018 BUN 23 (H) 05/23/2021 CREATININE 5.34 (H) 05/23/2021 ALKPHOS 93 11/29/2018 AST 14 11/29/2018 ALBUMIN 4.2 11/29/2018 BILIDIR 0.2 05/15/2017 BILITOT 0.5 11/29/2018 ALT 13 11/29/2018 PROT 7.7 11/29/2018 K 5.1 (H) 05/23/2021 Imaging: Reviewed IR History: Procedure Meds Given/Comments 08/30/18 Tunneled HD Cath??Exchange Fentanyl 100mcg IV 11/30/19 RUE??Ffistulagram??with multiple PTAs?? Fentanyl??175??mcg IV; Versed 3.5??mg IV (pt awake for the most part,??BP??sensitive to sedation even with half doses). 12/27/20??Tunneled??Line??Placement Fentanyl??250??mcg IV, tolerated well 01/07/2021??RUE fistulagram??and tunneled line exchange Fentanyl??50??mcg IV Versed??1??mg IV 01/23/21??HD??Tunneled line??exchange Local only, tolerated well 03/20/21 HD Tunneled line exchange??/ angioplasty at [facility] Local only, tolerated well ? Physical Exam: Pending (to be performed in angio the day of procedure) ASA: Pending (to be assessed in angio the day of procedure) Mallampati Class: Pending (to be assessed in angio the day of procedure) Assessment: 61 y.o. male with ESRD on HD with multiple failed access sites most recently with concern for clot of his right thigh AVG here for a fistulagram. Does not currently have an alternate access for HD (HD catheter removed 07/2021). Plan: Planned procedure: RIGHT SFA-SFV loop AVG fistulagram Labs to be performed day of procedure: INR; PLT; Potassium Sedation: Moderate (Conscious sedation) Prophylactic antibiotic : None Contrast: Omnipaque Additional medications for procedure: Lidocaine Position: Supine Consent: Pending Medications to discontinue (and days held): None Case Urgency:: G- Other (non E or F elective cases) On aspirin, does not need to be held for this procedure Case discussed with IR Attending, Dr. Delia Parsons MD 09/24/2021 * Grace Parsons MD - 09/24/2021 9:38 AM EDT INTERVENTIONAL RADIOLOGY FOCUSED H&P and PRE-PROCEDURE NOTE: PCP: Carroll Fuentes DO Referring Provider: Luna Solorio Planned Procedure: Planned procedure: RIGHT SFA-SFV loop AVG fistulagram Procedure Indication: Concern for clotted dialysis graft Procedure request received through Interventional Radiology eDH order queue. Order Questions Answers Where will study be performed? [facility] Radiology [120] Laterality Right Is the patient on anticoagulant / antiplatelet therapy ? Aspirin Reason for exam and clinical history: R thigh AVG clotted Presenting Diagnosis/ Complaint: Christy Ambrose is a 61 y.o. male with PMH of ESRD s/p transplant [id number] with graft failure now on dialysis with multiple failed access sites in both upper extermities. He had a L brachio-axillary graft (03/2021, Dr. Elias) which in December of 2021 was found to be occluded (outflow stenosis) and was unable to be opened. At this point IR placed a tunneled HD catheter. He later had creation of a RIGHT SFA-SFV loop AVG (counterclockwise flow of blood in graft) on 05/2021 with 4-7mm tapered PTFE. His HD catheter was removed on 07/28/20. He now presents for an evaluation of his right thigh AVG due to concern for clot. Past Medical/Surgical History: Patient Active Problem List [...] C44.329 ??? 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 [...] AV Fistula Evaluations 11/30/2019 Sabrina Velez MD [facility] INTERVENTIONL RAD ??? IR DIALYSIS ACCESS - AV FISTULA EVALUATIONS 01/07/2021 IR Dialysis Access - AV Fistula Evaluations 01/07/2021 Sabrina Velez MD [facility] RAD ??? IR DIALYSIS ACCESS - TUNNELED LINE 07/30/2018 IR Dialysis Access - Tunneled Line 07/30/2018 Walt Lin MD [facility] INTER[facility] RAD ??? IR DIALYSIS ACCESS - TUNNELED LINE 08/30/2018 IR Dialysis Access - Tunneled Line 08/30/2018 Erwin Simon APRN [facility] INTER[facility] RAD ??? IR DIALYSIS ACCESS - TUNNELED LINE 12/27/2020 IR Dialysis Access - Tunneled Line 12/27/2020 Kanu Apple MD [facility] RAD ??? IR DIALYSIS ACCESS - TUNNELED LINE 01/23/2021 IR Dialysis Access - Tunneled Line 01/23/2021 Kanu Apple MD [facility] INTER[facility] RAD ??? IR DIALYSIS ACCESS - TUNNELED LINE 03/20/2021 IR Dialysis Access - Tunneled Line 03/20/2021 Tab Harmon MD [facility] RAD ??? IR LINE OR TUBE REMOVAL IN RECOVERY ROOM 07/31/2021 IR Line or Tube Removal in Recovery Room 07/31/2021 [facility] RAD ??? KIDNEY TRANSPLANT KIDNEY TRANSPLANT / RECIPIENT/LT Procedure Date: 11/26/2002 ??? PRO ANASTOMOSIS, AV, ANY SITE Right 05/22/2021 AV FISTULA CREATION, DIRECT HEMODIALYSIS, ANY SITE, EG MADYSON FISTULA LOWER EXTREMITY (WRVU 11.9) performed by Odalis Elias MD at [facility] MAIN OR ??? PRO CREAT AV FISTULA, NON-AUTOGENOUS GRAFT Right 12/13/2018 PLACEMENT, AV HEMODIALYSIS GRAFT, SYNTHETIC GRAFT, UPPER EXTREMITY (WRVU 12.03) performed by Mary Garay MD at [facility] OR ??? PRO CREAT AV FISTULA, NON-AUTOGENOUS GRAFT Left 04/03/2021 PLACEMENT, AV HEMODIALYSIS GRAFT, SYNTHETIC GRAFT, UPPER EXTREMITY (WRVU 12.03) performed by Odalis Elias MD at [facility] OR ? ? PRO DEBRIDEMENT SUBCUTANEOUS TISSUE 20 SQCM/< Left 02/20/2016 DEBRIDEMENT SKIN AND SUBCU, HEAD/NECK performed by Miguel Angel Moreno MD at [facility] OR ??? PRO DECOMPRESS FOREARM, BRACH ART EXPLOR Left 04/06/2018 FASCIOTOMY, FOREARM, WITH BRACHIAL ARTERY EXPLORATION (WRVU 8.41) performed by Lida Peter MDat [facility] OR ??? PRO DIRECT REPAIR RUPTURED ANEURYSM, AXILLO-BRACHIAL ARM INCIS Left 04/06/2018 @REPAIR, RUPTURED AXILLARY OR BRACHIAL ARTERY ANEURYSM BY ARM INCISION (WRVU *) performed by Lida Peter MD at [facility] MAIN OR ??? PRO EXC PAROTD, TOTAL, UNILAT RAD NECK Left 02/05/2016 @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, TOTAL, WITH UNILATERAL RADICAL NECK DISSECTION performed by Miguel Angel Moreno MD at [facility] OR ??? PRO EXC SKIN MALIG 3.1-4CM FACE, FACIAL Left 02/05/2016 EXC MALIGNANT LESION, 3.1 TO 4.0CM, FACE performed by Miguel Angel Moreno MD at [facility] OR ? ? PRO EXC SKIN MALIG >4CM TRUNK, ARM, LEG 04/19/2012 EXC MALIGNANT LESION, MICHAEL > 4.0CM, TRUNK performed by SABRINA SANCHEZ at [facility] OR ??? PRO LAP, RADICAL NEPHRECTOMY Left 05/31/2017 @LAPAROSCOPY, RADICAL NEPHRECTOMY (WRVU 25.06) performed by Jax Mills MD at [facility] OR ??? PRO LIGATN ANGIOACCESS AV FISTULA Left 04/19/2018 LIGATION OR BANDING OF HEMODIALYSIS FISTULA OR GRAFT UPPER EXTREMITY (WRVU 6.25) performed by Odalis Elias MD at [facility] OR ??? PRO NEGATIVE PRESSURE WOUND THERAPY, LESS THAN OR EQUAL TO 50 SQCM Left 04/19/2018 DRESSING CHANGE (VAC ASSISTED) UP TO 50SQ.CM (WRVU 0.55) performed by Odalis Elias MD [facility] OR ??? PRO PHLEB VEINS - EXTREM - TO 20 Right 05/22/2021 STAB PHLEBECTOMY LISBET VEINS 1 EXTREMITY 10-20 INCISIONS (WRVU 7.71) performed by Odalis Elias MD at [facility] OR ??? PRO REBL VES GRAFT, UP EXTREM Left 04/06/2018 REPAIR BLOOD VESSEL WITH GRAFT OTHER THAN VEIN, UPPER EXTREMITY (WRVU 15.83) performed by Lida Peter MD at [facility] OR ??? PRO RELIEVE PRESSURE ON NERVE(S) Left 04/06/2018 (MSURG) CARPAL TUNNEL (WRVU 4.82) performed by Silviano Sparks MD at [facility] OR ??? PRO REPAIR INTERMEDIATE S/A/T/E 2.6-7.5 CM 04/19/2012 REPAIR INTERMEDIATE WOUND, (NO HANDS OR FEET) 2.6 TO 7.5CM, UPPER EXTREMITY performed by SABRINA SANCHEZ at [facility] MAIN OR ? ? PRO REPAIR INTERMEDIATE S/A/T/E > 30.0 CM Left 04/14/2018 REPAIR INTERMEDIATE WOUND, (NO HANDS OR FEET) >30.0CM, UPPER EXTREMITY (WRVU 5) performed by Yimi Easton MD at [facility] MAIN OR ??? PRO REVISE MEDIAN N/CARPAL TUNNEL SURG Left 04/06/2018 MEDIAN NERVE DECOMPRESSION (CARPAL TUNNEL RELEASE) (WRVU 4.97) performed by Lida Peter MD [facility] MAIN OR ? ? PRO SPLIT GRFT TRUNK, ARM, LEG <100SQCM Left 04/26/2018 SPLIT THICK SKIN GRAFT,100 SQ CM OR LESS, ARMS (WRVU 9.9) performed by Silviano Sparks MD at [facility] MAIN OR ? ? PRO SPLIT GRFT, HEAD, FAC, HAND, FEET <100SQCM N/A 02/20/2016 SPLIT THICKNESS SKIN SPLIT GRAFT,100SQ CM OR LESS, NECK performed by Miguel Angel Moreno MD at [facility] MAIN OR ??? PRO SPLIT GRFT, TRUNK, ARM, LEG EA 100SQCM N/A 04/26/2018 EA.ADDITIONAL 100SQ.CM STSG (WRVU 1.72) performed by Silviano Sparks MD at [facility] MAIN OR ??? PRO UNLISTED PROCEDURE VASCULAR SURGERY Left 11/20/2015 LIGATION\REPAIR AV FISTULA performed by Camilo Ireland MD at [facility] MAIN OR ??? PRO UNLISTED PROCEDURE VASCULAR SURGERY Left 11/20/2015 EXCISION VEIN FROM HAND performed by Camilo Ireland MD at [facility] MAIN OR ??? PRO UPPER GI ENDOSCOPY, BIOPSY N/A 05/13/2017 EGD WITH BIOPSY (WRVU 2.49) performed by Aditya Barrera MD at [facility] ENDOSCOPY ??? US RENAL TRANSPLANT BIOPSY 12/31/2010 ??? US RENAL TRANSPLANT RIGHT Right 06/04/2018 US Renal Transplant Right 06/04/2018 [facility] RAD ULTRASOUND Medications: Current Outpatient Medications on File Prior [...] facility-administered medications on file prior to encounter. Allergies: Benazepril hcl, Codeine, Hydrochlorothiazide, and Pollen extracts Social History and Habits: Social History Socioeconomic History ??? Marital status: Single Spouse name: Not on file ??? Number of children: Not on file ??? Years of education: Not on file ??? Highest education level: Not on file Occupational History ??? 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 Smoking status: Former Smoker Packs/day: 0.25 Years: 1.50 Pack years: 0.37 Types: Cigarettes Quit date: 12/03/2000 Years since quittin.8 ??? Smokeless tobacco: Former User Quit date: 04/14/2001 Vaping Use ??? Vaping Use: Never used Substance and Sexual Activity ??? Alcohol use: No ??? Drug use: No Types: Marijuana Comment: havent in years/1995 ??? Sexual activity: Not on file Comment: [...] Labs: Lab Results Component Value Date WBC 8.3 05/23/2021 HCT 31.6 (L) 05/23/2021 PLATELET 143 (L) 05/23/2021 INR 0.9 08/03/2018 BUN 23 (H) 05/23/2021 CREATININE 5.34 (H) 05/23/2021 ALKPHOS 93 11/29/2018 AST 14 11/29/2018 ALBUMIN 4.2 11/29/2018 BILIDIR 0.2 05/15/2017 BILITOT 0.5 11/29/2018 ALT 13 11/29/2018 PROT 7.7 11/29/2018 K 5.1 (H) 05/23/2021 Imaging: Reviewed IR History: Procedure Meds Given/Comments 08/30/18 Tunneled HD Cath??Exchange Fentanyl 100mcg IV 11/30/19 RUE??Ffistulagram??with multiple PTAs?? Fentanyl??175??mcg IV; Versed 3.5??mg IV (pt awake for the most part,??BP??sensitive to sedation even with half doses). 12/27/20??Tunneled??Line??Placement Fentanyl??250??mcg IV, tolerated well 01/07/2021??RUE fistulagram??and tunneled line exchange Fentanyl??50??mcg IV Versed??1??mg IV 01/23/21??HD??Tunneled line??exchange Local only, tolerated well 03/20/21 HD Tunneled line exchange??/ angioplasty at [facility] Local only, tolerated well ? Physical Exam: Pending (to be performed in angio the day of procedure) ASA: Pending (to be assessed in angio the day of procedure) Mallampati Class: Pending (to be assessed in angio the day of procedure) Assessment: 61 y.o. male with ESRD on HD with multiple failed access sites most recently with concern for clot of his right thigh AVG here for a fistulagram. Does not currently have an alternate access for HD (HD catheter removed 07/2021). Plan: Planned procedure: RIGHT SFA-SFV loop AVG fistulagram Labs to be performed day of procedure: INR; PLT; Potassium Sedation: Moderate (Conscious sedation) Prophylactic antibiotic : None Contrast: Omnipaque Additional medications for procedure: Lidocaine Position: Supine Consent: Pending Medications to discontinue (and days held): None Case Urgency:: G- Other (non E or F elective cases) On aspirin, does not need to be held for this procedure Case discussed with IR Attending, Dr. Delia Parsons MD 09/24/2021 documented in this encounter Miscellaneous Notes * Consult Note - Ortega Girard MD - 09/25/2021 11:05 AM EDT [facility] HYPERTENSION/ NEPHROLOGY INPATIENT CONSULTATION PATIENT: Christy Ambrose : 1960 REASON FOR CONSULTATION: Management [facility]D and 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 male admitted to interventional radiology today for a same-day procedure consisting of thrombectomy of clotted right femoral loop graft has been found to have severe hyperkalemia (potassium 7.4). I am asked to help manage the hyperkalemia and arrange for urgent dialysis. Patient normally dialyzes at the [facility] in [facility]. He could not dialyze yesterday due to a thrombosed graft. Typical predialysis potassium in the mid 5 range. Patient feeling well without complaints. Specifically he has no headache, epistaxis, chest pain, shortness of breath, nausea, vomiting, diarrhea, bone or joint symptoms, or swelling. He has no pain at the thrombosed graft site. He is unable to tell me much about his recent activity level or dialysis schedule but after talking with the staff, his treatments have been uneventful until he was found to be clotted at yesterday's treatment. He is essentially anuric. He normally dialyzes Wednesday, Wednesday, Wednesday. His estimated dry weight is 82 kg. Laboratory data from September 22 include hemoglobin 11.2, calcium 9.5, phosphorus 3, sodium 143, potassium 5.7 MEDICATIONS: ??? sodium chloride 0.9 % (flush) 5 mL Intravenous BID ??? albuteroL 10 mg Nebulization Once Allergies: Allergies Allergen Reactions ??? Benazepril Hcl ??? Codeine Other (See Comments) Patient does not know reaction ??? Hydrochlorothiazide ??? Pollen Extracts Sneezing/runny nose PSH: Past Surgical History: Procedure Laterality Date ??? CREATED BY INTERFACE Entered not Verified Procedure Date: 09/19/2010 ??? IR DIALYSIS ACCESS - AV FISTULA EVALUATIONS 11/30/2019 IR Dialysis Access - AV Fistula Evaluations 11/30/2019 Sabrina Velez MD [facility] INTERVENT[facility] RAD ??? IR DIALYSIS ACCESS - AV FISTULA EVALUATIONS 01/07/2021 IR Dialysis Access - AV Fistula Evaluations 01/07/2021 Sabrina Velez MD [facility] INTER[facility] RAD ??? IR DIALYSIS ACCESS - TUNNELED LINE 07/30/2018 IR Dialysis Access - Tunneled Line 07/30/2018 Walt Lin MD [facility] INTERVENT[facility] RAD ??? IR DIALYSIS ACCESS - TUNNELED LINE 08/30/2018 IR Dialysis Access - Tunneled Line 08/30/2018 Erwin Simon, [place] [facility] INTERVENT[facility] RAD ??? IR DIALYSIS ACCESS - TUNNELED LINE 12/27/2020 IR Dialysis Access - Tunneled Line 12/27/2020 Kanu Apple MD [facility] INTERVENT[facility] RAD ??? IR DIALYSIS ACCESS - TUNNELED LINE 01/23/2021 IR Dialysis Access - Tunneled Line 01/23/2021 Kanu Apple MD [facility] INTERVENTION[facility] RAD ??? IR DIALYSIS ACCESS - TUNNELED LINE 03/20/2021 IR Dialysis Access - Tunneled Line 03/20/2021 Tab Harmon MD [facility] INTERVENTION[facility] RAD ??? IR LINE OR TUBE REMOVAL IN RECOVERY ROOM 07/31/2021 IR Line or Tube Removal in Recovery Room 07/31/2021 [facility] INTERVENT[facility] RAD ??? KIDNEY TRANSPLANT KIDNEY TRANSPLANT / RECIPIENT/LT Procedure Date: 11/26/2002 ??? PRO ANASTOMOSIS, AV, ANY SITE Right 05/22/2021 AV FISTULA CREATION, DIRECT HEMODIALYSIS, ANY SITE, EG MADYSON FISTULA LOWER EXTREMITY (WRVU 11.9) performed by Odalis Elias MD at [facility] MAIN OR ??? PRO CREAT AV FISTULA, NON-AUTOGENOUS GRAFT Right 12/13/2018 PLACEMENT, AV HEMODIALYSIS GRAFT, SYNTHETIC GRAFT, UPPER EXTREMITY (WRVU 12.03) performed by Mary Garay MD at [facility] OR ??? PRO CREAT AV FISTULA, NON-AUTOGENOUS GRAFT Left 04/03/2021 PLACEMENT, AV HEMODIALYSIS GRAFT, SYNTHETIC GRAFT, UPPER EXTREMITY (WRVU 12.03) performed by Odalis Elias MD at [facility] MAIN OR ? ? PRO DEBRIDEMENT SUBCUTANEOUS TISSUE 20 SQCM/< Left 02/20/2016 DEBRIDEMENT SKIN AND SUBCU, HEAD/NECK performed by Miguel Angel Moreno MD at [facility] MAIN OR ??? PRO DECOMPRESS FOREARM, BRACH ART EXPLOR Left 04/06/2018 FASCIOTOMY, FOREARM, WITH BRACHIAL ARTERY EXPLORATION (WRVU 8.41) performed by Lida Peter MDat [facility] OR ??? PRO DIRECT REPAIR RUPTURED ANEURYSM, AXILLO-BRACHIAL ARM INCIS Left 04/06/2018 @REPAIR, RUPTURED AXILLARY OR BRACHIAL ARTERY ANEURYSM BY ARM INCISION (WRVU *) performed by Lida Peter MD at [facility] OR ??? PRO EXC PAROTD, TOTAL, UNILAT RAD NECK Left 02/05/2016 @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, TOTAL, WITH UNILATERAL RADICAL NECK DISSECTION performed by Miguel Angel Moreno MD at [facility] OR ??? PRO EXC SKIN MALIG 3.1-4CM FACE, FACIAL Left 02/05/2016 EXC MALIGNANT LESION, 3.1 TO 4.0CM, FACE performed by Miguel Angel Moreno MD at [facility] OR ? ? PRO EXC SKIN MALIG >4CM TRUNK, ARM, LEG 04/19/2012 EXC MALIGNANT LESION, MICHAEL > 4.0CM, TRUNK performed by SABRINA SANCHEZ at [facility] OR ??? PRO LAP, RADICAL NEPHRECTOMY Left 05/31/2017 @LAPAROSCOPY, RADICAL NEPHRECTOMY (WRVU 25.06) performed by Jax Mills MD at [facility] OR ??? PRO LIGATN ANGIOACCESS AV FISTULA Left 04/19/2018 LIGATION OR BANDING OF HEMODIALYSIS FISTULA OR GRAFT UPPER EXTREMITY (WRVU 6.25) performed by Odalis Elias MD at [facility] OR ??? PRO NEGATIVE PRESSURE WOUND THERAPY, LESS THAN OR EQUAL TO 50 SQCM Left 04/19/2018 DRESSING CHANGE (VAC ASSISTED) UP TO 50SQ.CM (WRVU 0.55) performed by Odalis Elias MD [facility] OR ??? PRO PHLEB VEINS - EXTREM - TO 20 Right 05/22/2021 STAB PHLEBECTOMY LISBET VEINS 1 EXTREMITY 10-20 INCISIONS (WRVU 7.71) performed by Odalis Elias MD at [facility] OR ??? PRO REBL VES GRAFT, UP EXTREM Left 04/06/2018 REPAIR BLOOD VESSEL WITH GRAFT OTHER THAN VEIN, UPPER EXTREMITY (WRVU 15.83) performed by Lida Peter MD at [facility] OR ??? PRO RELIEVE PRESSURE ON NERVE(S) Left 04/06/2018 (MSURG) CARPAL TUNNEL (WRVU 4.82) performed by Silviano Sparks MD at [facility] OR ??? PRO REPAIR INTERMEDIATE S/A/T/E 2.6-7.5 CM 04/19/2012 REPAIR INTERMEDIATE WOUND, (NO HANDS OR FEET) 2.6 TO 7.5CM, UPPER EXTREMITY performed by SABRINA SANCHEZ at [facility] MAIN OR ? ? PRO REPAIR INTERMEDIATE S/A/T/E > 30.0 CM Left 04/14/2018 REPAIR INTERMEDIATE WOUND, (NO HANDS OR FEET) >30.0CM, UPPER EXTREMITY (WRVU 5) performed by Yimi Easton MD at [facility] MAIN OR ??? PRO REVISE MEDIAN N/CARPAL TUNNEL SURG Left 04/06/2018 MEDIAN NERVE DECOMPRESSION (CARPAL TUNNEL RELEASE) (WRVU 4.97) performed by Lida Peter MD [facility] MAIN OR ? ? PRO SPLIT GRFT TRUNK, ARM, LEG <100SQCM Left 04/26/2018 SPLIT THICK SKIN GRAFT,100 SQ CM OR LESS, ARMS (WRVU 9.9) performed by Silviano Sparks MD at [facility] MAIN OR ? ? PRO SPLIT GRFT, HEAD, FAC, HAND, FEET <100SQCM N/A 02/20/2016 SPLIT THICKNESS SKIN SPLIT GRAFT,100SQ CM OR LESS, NECK performed by Miguel Angel Moreno MD at [facility] MAIN OR ??? PRO SPLIT GRFT, TRUNK, ARM, LEG EA 100SQCM N/A 04/26/2018 EA.ADDITIONAL 100SQ.CM STSG (WRVU 1.72) performed by Silviano Sparks MD at [facility] MAIN OR ??? PRO UNLISTED PROCEDURE VASCULAR SURGERY Left 11/20/2015 LIGATION\REPAIR AV FISTULA performed by Camilo Ireland MD at [facility] MAIN OR ??? PRO UNLISTED PROCEDURE VASCULAR SURGERY Left 11/20/2015 EXCISION VEIN FROM HAND performed by Camilo Ireland MD at [facility] MAIN OR ??? PRO UPPER GI ENDOSCOPY, BIOPSY N/A 05/13/2017 EGD WITH BIOPSY (WRVU 2.49) performed by Aditya Barrera MD at [facility] ENDOSCOPY ??? US RENAL TRANSPLANT BIOPSY 12/31/2010 ??? US RENAL TRANSPLANT RIGHT Right 06/04/2018 US Renal Transplant Right 06/04/2018 [facility] RAD ULTRASOUND FH: Family History Problem Relation Age of Onset ??? Pancreatitis Father SH: Patient does not smoke or drink ROS: Negative as above. (pertinent positives are in bold, pertinent negatives in italic) Constitutional - fevers, chills, night sweats, weight loss, fatigue, generalized weakness Skin - rash or itchy skin HEENT - headaches, visual changes, dry eyes/ mouth, sores in mouth Lymph - swollen glands Resp - cough, shortness of breath CV - chest pain, leg swelling, difficulty breathing lying flat, palpitations GI - nausea, vomiting, diarrhea, constipation, black or bloody stools, abdominal pain - decrease urine output, pain urinating, blood in urine. Neuro - dizziness, lightheadedness, weakness, numbness/ tingling in extremities. Heme - easy bruising or nose bleeds MS - red/ swollen joints PHYSICAL EXAM: Last value Range last 24 hrs Temperature Temp: 36.5 ??C (97.7 ??F) Temp: [35.9 ??C (96.6 ??F)-36.5 ??C (97.7 ??F)] Heart Rate Heart Rate: 56 Heart Rate: [45-59] Blood Pressure BP: 110/63 BP: (110-133)/(35-79) Respiratory Rate Resp: 12 Resp: [11-18] SpO2 SpO2: 98 % SpO2: [93 %-100 %] Art BP BP (Arterial Line): -- Wt Readings from Last 3 Encounters: 06/06/21 86.2 kg (190 lb) 05/23/21 84.6 kg (186 lb 8.2 oz) 05/02/21 95.3 kg (210 lb) No intake or output data in the 24 hours ending 09/25/21 1105 Gen: Alert and awake, looks comfortable Skin - No rash HEENT - clear sclera, Mucous membranes moist. Pharynx pink. No nasal discharge. Lymph - No cervical lymphadenopathy. Access: right fem AVG s/p declot, normal appearance, good bruit, no bleeding or swelling Lungs: clear to auscultation w/o wheezes/ rhonchi/ crackles. Heart - Normal S1/S2, no murmur, gallop, or rub. Mildly bradyJVP not elevated. Abd - Soft. + BS. No bruit. Non tender. No organomegaly. Ext - Warm. No cyanosis. No LE edema. Neuro - No clonus/ asterixis. Muscle strength equal bilaterally. CN II - XII grossly intact b/l.. Memory poor (baseline) ECG viewed: sb, o/w normal. No changes of hyperkalemia. K 7.4 IMPRESSION/ RECOMMENDATIONS: 1. 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 We will call for him as soon as possible. Discussed with interventional radiology staff On follow-up patient's blood sugar was asymptomatic at 74, we will allow him to take apple juice, peanut butter and crackers and recheck. Repeat blood sugar improved to 123. Dialysis underway. Patient is seen and examined on dialysis. He is tolerating the treatment well. The blood pressure is relatively low at 90/63 but he reports this is typical for him during treatment. He is asymptomatic. Heart rate is 54 in sinus rhythm by the monitor. Skin is warm and dry. Access functioning well. No edema. General exam as above. Continue to monitor sugars. Anticipate patient will be discharged home after completing his dialysis. He will resume outpatient dialysis tomorrow. documented in this encounter Plan of Treatment Not on file documented as of this encounter Procedures Procedure Name Priority Date/Time Associated Diagnosis Comments POCT GLUCOSE Routine 09/25/2021 1:22 PM EDT POCT GLUCOSE Routine 09/25/2021 11:51 AM EDT POCT GLUCOSE Routine 09/25/2021 11:17 AM EDT POCT GLUCOSE Routine 09/25/2021 11:15 AM EDT POCT GLUCOSE Routine 09/25/2021 10:23 AM EDT EKG 12-LEAD STAT 09/25/2021 9:57 AM EDT CKD (chronic kidney disease) stage 5, GFR less than 15 ml/min IR DIALYSIS ACCESS - AV FISTULA EVALUATIONS Routine 09/25/2021 9:47 AM EDT ESRD (end stage renal disease) HC POTASSIUM STAT 09/25/2021 8:08 AM EDT Pre-op testing ESRD (end stage renal disease) on dialysis documented in this encounter Results * (ABNORMAL) Potassium (09/29/2021 3:56 PM EDT) Potassium 6.8(Criti constance) 3.5 - 5.0 mmol/L [facility] Comment: called by EB/read back by Ashleigh Jurado 09-29-21 @ 0153 Please note: ??Patients with WBC >100,000 may have falsely elevated Potassium levels. ??For accurate Potassium quantification in these patients send serum separator tube (gold top) for subsequent determinations. ??Contact the Clinical Chemistry Laboratory if there are any questions. Blood 09/29/2021 3:56 PM EDT 09/29/2021 4:07 PM EDT Narrative Resulting Agency Comment Spec In Lab Sabrina Velez MD CHEMISTRY ORDERABLES Performing Organization Address City/[facility]/ZIP Co de Phone Number [facility] [place] [address] * POCT Glucose (09/25/2021 1:22 PM EDT) Glucose, POC 123 65 - 199 mg/dL [facility] Comment: Supplemental ranges: <140 mg/dL before meals <180 mg/dL all other times of the day Blood 09/25/2021 1:22 PM EDT 09/25/2021 1:22 PM EDT Luna Solorio APRN POINT OF CARE SHAZIA T ORDERABLES [facility] [place] [place] [address] * POCT Glucose (09/25/2021 11:51 AM EDT) Glucose, POC 78 65 - 199 mg/dL [facility] Comment: Supplemental ranges: <140 mg/dL before meals <180 mg/dL all other times of the day Blood 09/25/2021 11:5 1 AM EDT 09/25/2021 11:51 AM EDT Luna Solorio TIME CYCLE OPERATOR POINT OF CARE SHAZIA T ORDERABLES Performing Organization Address [facility] Co de Phone Number [facility] [place] [address] * POCT Glucose (09/25/2021 11:17 AM EDT) Glucose, POC 74 65 - 199 mg/dL [facility] Comment: Supplemental ranges: <140 mg/dL before meals <180 mg/dL all other times of the day Blood 09/25/2021 11:1 7 AM EDT 09/25/2021 11:17 AM EDT Luna Solorio TIME CYCLE OPERATOR POINT OF CARE SHAZIA T ORDERABLES Performing Organization Address [facility] Co de Phone Number [facility] [place] [address] * POCT Glucose (09/25/2021 11:15 AM EDT) Glucose, POC 67 65 - 199 mg/dL [facility] Comment: Supplemental ranges: <140 mg/dL before meals <180 mg/dL all other times of the day Blood 09/25/2021 11:1 5 AM EDT 09/25/2021 11:15 AM EDT Luna Solorio TIME CYCLE OPERATOR POINT OF CARE SHAZIA T ORDERABLES Performing Organization Address [facility] Co de Phone Number [facility] [place] [address] * (ABNORMAL) POCT Glucose (09/25/2021 10:23 AM EDT) Glucose, POC 232(H) 65 - 199 mg/dL [facility] Comment: Supplemental ranges: <140 mg/dL before meals <180 mg/dL all other times of the day Blood 09/25/2021 10:2 3 AM EDT 09/25/2021 10:23 AM EDT Luna Solorio TIME CYCLE OPERATOR POINT OF CARE SHAZIA T ORDERABLES Performing Organization Address City/[facility]/ZIP Co de Phone Number [facility] [place] [place] [address] * EKG 12 Lead (09/25/2021 9:57 AM EDT) Ventricular rate 52 BPM MUSE SYSTEM Atrial Rate 52 BPM MUSE SYSTEM P-R Interval 172 ms MUSE SYSTEM QRS Duration 90 ms MUSE SYSTEM Q-T Interval 436 ms MUSE SYSTEM QTC Calculated (Bezet) 405 ms MUSE SYSTEM Calculated P [place] 83 degrees MUSE SYSTEM Calculated R [place] 61 degrees MUSE SYSTEM Calculated T [place] 65 degrees MUSE SYSTEM INTERPRETATION Sinus bradycardia Otherwise normal ECG When compared with ECG of 13-DEC-2018 17:46, No significant change was found Confirmed by fellow MD Juma, Mark ([id number]) on 09/25/2021 5:08:24 PM Confirmed by MD Luis, Tab ([id number]) on 09/26/2021 9:25:52 AM MUSE SYSTEM 09/25/2021 9:57 AM EDT 09/26/2021 9:25 AM EDT Luna Solorio TIME CYCLE OPERATOR ECG ORDERABLES Performing Organization Address City/[facility] Co de Phone Number MUSE SYSTEM * IR Dialysis Access - AV Fistula [...] dilated using an 8 mm high pressure NARRATIVE WRITER balloon (28 angy, 3 minutes). NARRATIVE WRITER was performed in the outflow limb back to the sheath with the 8mm balloon inflated to 6 ANGY in a step-bianchi fashion. A second access [...] was advanced to the arterial anastomosis and NARRATIVE WRITER performed back the first sheath. The arterial [...] following TPA, balloon maceration, and venous anastomotic NARRATIVE WRITER. ?? IR Resident: Oliver Andersen MD Attending: Greyson Apple MD (I was present and scrubbed for the entire procedure) I was present during the intraservice time as documented by the IR Nurse. Luna Solorio TIME CYCLE OPERATOR IMG IR ORDERABLES * (ABNORMAL) Potassium (09/25/2021 8:08 AM EDT) Potassium 7.4(Criti constance) 3.5 - 5.0 mmol/L [facility] Comment: Called by: , Read back by: Tee Cuenca, Date/Time:09/25/21 09:10. Please note: ??Patients with WBC >100,000 may have falsely elevated Potassium levels. ??For accurate Potassium quantification in these patients send serum separator tube (gold top) for subsequent determinations. ??Contact the Clinical Chemistry Laboratory if there are any questions. Blood 09/25/2021 8:08 AM EDT 09/25/2021 8:20 AM EDT Narrative Resulting Agency Comment Spec In Lab Luna Solorio TIME CYCLE OPERATOR CHEMISTRY ORDERAB LES [facility] [place] [place] [address] documented in this encounter Visit Diagnoses Diagnosis Pre-op testing Preoperative examination, unspecified ESRD (end stage renal disease) on dialysis End stage renal disease ESRD (end stage renal disease) End stage renal disease CKD (chronic kidney disease) stage 5, GFR less than 15 ml/min Chronic kidney disease, Stage V documented in this encounter Administered Medications Inactive Administered Medications - up to 3 most recent administrations Medication Order MAR Action Action Date Dose Rate Site alteplase (Cathflo) injection 4 mg 4 mg, INTRA-CATHETER, ONCE, 1 dose, On Mariza 09/25/21 at 0745, For use in Interventional Radiology (IR) only for procedure with direct provider supervision and verbal order. , Angio/IR (Intra-Procedure), Routine Given 09/25/2021 7:45 AM EDT 4 mg dextrose 10% 250 mL IV bolus at 1,000 mL/hr, Intravenous, ONCE, 1 dose, On Mariza 09/25/21 at 1015, Give 250 mL of dextrose 10% intravenously immediately followed by regular insulin 10 units intravenously. New Bag 09/25/2021 10:00 AM EDT 1000 mL/hr dextrose 5% infusion 50 mL/hr, Intravenous, CONTINUOUS, Starting on Mariza 09/25/21 at 1015, Until Mariza 09/25/21 at 1214 New Bag 09/25/2021 10:15 AM EDT 50 mL/hr 50 mL/hr fentaNYL (pf) (50 mcg/mL) multi-dose injection 25-50 mcg 25-50 mcg, Intravenous, EVERY 3 MIN PRN, Starting on Mariza 09/25/21 at 0658, Until Mariza 09/25/21 at 1245, Pain, per unit protocol, - Start dose [...] order., Angio/IR (Day of Procedure), Routine Given 09/25/2021 9:12 AM EDT 25 mcg Given 09/25/2021 8:18 AM EDT 25 mcg Given 09/25/2021 8:00 AM EDT 50 mcg heparin (porcine) (1,000 units/mL) injection 1,000-10,000 Units 1,000-10,000 Units, Intravenous, ONCE, 1 dose, On Mariza 09/25/21 at 0745, For use in Interventional Radiology (IR) only for procedure with direct provider supervision and verbal order. , Angio/IR (Intra-Procedure), Routine Given 09/25/2021 8:10 AM EDT 3,000 Un its insulin regular (HumuLIN R,NovoLIN R) (100 unit/mL) injection vial 10 Units 10 Units, Intravenous, ONCE, 1 dose, On Mariza 09/25/21 at 1015, Give 250 mL of dextrose 10% Intravenously immediately followed by regular insulin 10 units Intravenously. Monitor BG one hour after insulin administration and then every two hours X 2 and PRN., Routine Given 09/25/2021 10:15 AM EDT 10 Un its iohexoL (Omnipaque) (350 mg/mL) solution 1-400 mL 1-400 mL, Other, ONCE, 1 dose, On Mariza 09/25/21 at 1015, For intra-procedural use by proceduralist., Angio/IR (Intra-Procedure), Routine Given 09/25/2021 10:15 AM EDT 35 mLs lidocaine (Xylocaine) 1% (10 mg/mL) injection 10 mg 10 mg, Subcutaneous, ONCE, 1 dose, On Mariza 09/25/21 at 0715, For use in Interventional Radiology (IR) only for procedure with direct provider supervision and verbal order., Angio/IR (Day of Procedure), Routine Given 09/25/2021 7:15 AM EDT 10 mg documented in this encounter Care Teams Broke Beater Machine Operator Relationship Specialty Start Date End Date Carroll Fuentes DO [address] [place] [address] [address] [facility] [address] [place] [address] PCP - General 09/23/11 10/20/22 documented as of this encounter
--- OUTSIDE RECORDS SUMMARY | 2024-04-22 10:52 | XMS_ITS | Encounter Summary ---
Author Organization [facility] Address [facility] [place] [address] Care Team Providers Care Human Resources Operations Coordinator Name Role Phone AlfredoCarroll allison Primary Care Provider [phone] Encounter Details Date Type Department Care Team (Late st Contact Info) Description 09/23/2022 External Results [place] [address] Bhargavi Wang, [facility] [place] [address] Social History Tobacco Use Types Packs/Day Years [...] Procedure Name Priority Date/Time Associated Diagnosis Comments TACROLIMUS LEVEL Routine 09/19/2022 documented in this encounter Results * Tacrolimus level (09/19/2022) Tacrolimus 6.5 Blood 09/19/2022 Historical Provider CHEMISTRY ORDERAB LES documented in this encounter Visit Diagnoses Not on filedocumented in this encounter Care Teams Human Resources Operations Coordinator Relationship Specialty Start Date End Date Carroll Fuentes DO [address] [place] [address] PCP - General 09/23/11 10/20/22 documented as of this encounter
--- OUTSIDE RECORDS SUMMARY | 2024-04-22 10:52 | XMS_ITS | Encounter Summary ---
[place] [address] Care Team Providers Care Graduate Student Name Role Phone AlfredoCarroll allison Primary Care Provider [phone] Reason for Referral * Diagnostic Test (Routine) - Closed Specialty Diagnoses / Procedures Referred By Shashi ko Referred To Contact Radiology Diagnoses ESRD (end stage renal disease) Procedures IR Dialysis Access - AV Fistula Evaluations Luna Solorio SILVER BRAZER [facility] [place] [address] [place] [address] [place] [address] Referral ID Status Reason Start Date Expiration Date V isits Requested Visits Authorized [id number] Closed Specialty Service Requested 10/02/2021 04/04/2023 1 1 Encounter Details Date Type Department Care Team (Late st Contact Info) Description 10/02/2021 Orders Only Ne[place] [address] Luna Solorio APRN [facility] [place] [address] ESRD (end stage renal disease) [...] dialysis graft was accessed and a 7 Gibraltarian sheath was placed. Access technique: Micropuncture set with 21 gauge needle Access direction: Toward venous anastomosis Second access Local anesthesia was administered. The dialysis graft was accessed in a second location and a 6 Gibraltarian sheath was placed. Access technique: Micropuncture set [...] angiography from the superficial femoral artery showed temple of patency of the graft and outflow [...] for clot maceration and displacement. Angioplasty balloon(s): [employer] 8 mm x 4 cm Findings: There [...] who have questions please contact the health rn urgent care that requested your imaging first. ? Narrative 10/11/2021 5:47 PM EDT PROCEDURE: Arteriovenous [...] The dialysis graft was accessed and a7 Gibraltarian sheath was placed. Access technique: Micropuncture set with 21 gauge needle Access direction: Toward venous anastomosis Second access Local anesthesia was administered. The dialysis graft was accessed in asecond location and a 6 Gibraltarian sheath was placed. Access technique: Micropuncture set [...] repeat angiography from the superficial femoral arteryshowed temple of patency of the graft and outflow [...] centrally for clot maceration anddisplacement. Angioplasty balloon(s): [employer] 8 mm x 4 cm Findings: There [...] patients who have questions please contactthe health rn urgent care that requested your imaging first. Luna Isaacoll SILVER BRAZER IMG IR ORDERABLES documented in this encounter Visit Diagnoses Diagnosis ESRD (end stage renal disease) End stage renal disease ESRD (end stage renal disease) on dialysis End stage renal disease ESRD (end stage renal disease) End stage renal disease documented in this encounter Care Teams Graduate Student Relationship Specialty Start Date End Date Carroll Fuentes DO [address] [place] [address] PCP - General 09/23/11 10/20/22 documented as of this encounter
--- OUTSIDE RECORDS SUMMARY | 2024-04-22 10:52 | XMS_ITS | Encounter Summary ---
[place] [address] Care Team Providers Care Entry Level Java Developer Name Role Phone AlfredoCarroll geiger Primary Care Provider [phone] Reason for Referral * Diagnostic Test (Routine) - Closed Specialty Diagnoses / Procedures Referred By Shashi ko Referred To Contact Radiology Diagnoses ESRD (end stage renal disease) Procedures IR Line or Tube Removal in Recovery Room IR Dialysis Access - Tunneled Line Luna Solorio APRN [facility] [place] [address] [facility] [place] [address] Referral ID Status Reason Start Date Expiration Date V isits Requested Visits Authorized [id number] Closed Specialty Service Requested 07/25/2021 01/22/2023 1 1 Encounter Details Date Type Department Care Team (Late st Contact Info) Description 07/25/2021 Orders Only [place] [address] Luna Solorio APRN [facility] [place] [address] ESRD (end stage renal disease) [...] as of this encounter Results * IR Line or Tube Removal in Recovery Room (07/31/2021 2:39 PM EST) Anatomical Region Laterality Modality X-Ray Angiograph y Narrative 07/31/2021 2:48 PM EST Interventional Radiology Procedure Note Procedure: Tunneled central venous catheter explant Indication: ESRD, discontinue durable penitentiary central venous access Pre-procedure: Informed consent for [...] provider: Veto Goodman PA-C Attending of Record: Damián Velez MD 07/31/2021 Salvador Moise MD Luna John Solorio SHALE PLANER OPERATOR IMG IR ORDERABLES documented in this encounter Visit Diagnoses Diagnosis ESRD (end stage renal disease) End stage renal disease ESRD (end stage renal disease) End stage renal disease documented in this encounter Care Teams Entry Level Java Developer Relationship Specialty Start Date End Date Carroll Fuentes DO [address] [place] [address] PCP - General 09/23/11 10/20/22 documented as of this encounter
--- OUTSIDE RECORDS SUMMARY | 2024-04-22 10:52 | XMS_ITS | Encounter Summary ---
Author Organization [facility] Address [facility] [place] [address] Care Team Providers Care Navigating Officer Name Role Phone AlfredoCarroll allison Primary Care Provider [phone] Encounter Details Date Type Department Care Team (Late st Contact Info) Description 12/16/2021 2:30 PM EDT Office [place] [address] Odalis Elias MD [facility] [place] [address] ESRD (end stage renal disease) on dialysis [...] Sign Reading Time Taken Comments Blood Pressure 93/64 12/16/2021 2:06 PM EDT Pulse 62 12/16/2021 2:05 PM EDT Temperature - - Respiratory Rate 18 12/16/2021 2:05 PM EDT Oxygen Saturation - - Inhaled Oxygen Concentration - - Weight 81.6 kg (180 lb) 12/16/2021 2:05 PM EDT Height 177.8 cm (5' 10) 12/16/2021 2:05 PM EDT Body Mass Index 25.83 12/16/2021 2:05 PM EDT documented in this encounter Progress Notes * Odalis Elias MD - 12/16/2021 2:30 PM EDT OUTPATIENT VASCULAR SURGERY FOLLOW-UP Reason for Visit: ESRD History of Present Illness: Adama Ram is a 61 y.o. male here for follow-up evaluation. 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 He is s/p multiple access procedures on the LUE as well as a R brachioaxillary graft in 2018 which thrombosed in December 2020.He then underwent left LUE AVG on 04/03/21 which thrombosed early on. Most recently he underwent a RLE SFA-SFV loop graft which worked well until it thrombosed in September 2021 and then twice again in October. He is currently being dialyzed via R IJ catheter and returns today to discuss options for future permanent access. Atherosclerotic Risk Factors: (n) DM (y) HTN (n) CAD (n) CHF (n) Hyperlipidemia (n) CVA reports that he quit smoking about 21 years ago. His smoking use included cigarettes. He has a 0.38pack-year smoking history. He quit smokeless tobacco use about 20 years ago. Access Procedures 05/2021 R SFA-SFV AVG 03/2021 L brachio-axillary graft with early thrombosis [...] face C44.329 ??? 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 skilled nursing current use of immunosuppressive drug Z79.899 ??? [...] taking differently: Take 20 mg by mouth daily.), Disp: 60 tablet, Rfl: 0 ??? tacrolimus (PROGRAF) 1 mg Capsule, Take 1 capsule by mouth 2 times daily., Disp: 60 capsule, Rfl: 0 ??? carvedilol [...] - Denies Functional Status/Social Hx: Lives in long term, Drives Car, Denies Tobacco Use Family Hx: Negative for Thrombosis, Bleeding Disorders Physical Exam: BP 93/64 (BP Location (NBP): Right arm, Patient Position: Sitting, BP Cuff Sizes: Adult (25-34 cm)) Pulse 62 Resp 18 Ht 177.8 cm (5' 10) Wt 81.6 kg (180 lb) BMI 25.83 kg/m?? General - NAD, appears stated age [...] grafts, healed incisions of the upper arm. Well healed incision R thigh. Vascular Exam: R L Carotid 2/2 bruit (n) 2/2 bruit (n) Radial 2/2 2/2 Femoral 2/2 2/2 Popliteal 2/2 2/2 DP 2/2 2/2 PT 2/2 2/2 Labs: No results found for this or any previous visit (from the past 72 hour(s)). Studies: No flowsheet data found. Assessment and Plan: 61 y.o. male with ESRD and multiple failed access procedures in both upper extremities and now in the RLE. We discussed his case at the interdisciplinary access meeting and have decided to recommend that he continue using his catheter for now. We will defer any further access procedure for now. documented in this encounter Plan of Treatment Not on file documented as of this encounter Visit Diagnoses Diagnosis ESRD (end stage renal disease) on dialysis End stage renal disease documented in this encounter Care Teams Navigating Officer Relationship Specialty Start Date End Date Carroll Fuentes DO [address] [place] [address] PCP - General 09/23/11 10/20/22 documented as of this encounter
--- OUTSIDE RECORDS SUMMARY | 2024-04-22 10:52 | XMS_ITS | Encounter Summary ---
Author Organization [facility] Address [facility] [place] [address] Care Team Providers Care Machine Stuffer Name Role Phone Carroll Fuentes DO Primary Care Provider [phone] Encounter Details Date Type Department Care Team (Late st Contact Info) Description 09/24/2022 [place] [address] Mallory Caballero PA [facility] [place] [address] Social History Tobacco Use Types Packs/Day Years [...] as of this encounter H&P Notes * Mallory Caballero PA - 09/24/2022 3:03 PM EDT Images from the original note were not included. Interventional Radiology Focused Pre-procedure H&P: PCP: Carroll Fuentes DO Referring Provider: No ref. provider found Planned procedure: Tunneled HD central venous catheter placement Procedure indication: Malfunctioning HD catheter, ESRD IR workflow: Procedure request received through Interventional Radiology eDH order queue. There are no answered order specific questions. History of Present Illness: Per chart review, Adamamaty Ram is a 62 y.o. male with PMH of ESRD (HD via R IJ tunneled HD CVC placed September, multiple prior AVGs thrombosed) who presents to Interventional Radiology to undergo tunneled HD CVC exchange with possible sheath disruption in the setting of poor flow despite frequent use of Cathflo. Remainder of patient's medical and surgical history, allergies, medications, and social/family history obtained below as previously outlined in patient's medical record. IR History: Date/Procedure Meds Given/Comments 08/30/18 Tunneled HD Cath??Exchange [...] units IV, Cathflo 1 mg intra-catheter, ? Imagin09/29/21 Assessment: 62 y.o. male with malfunctioning tunneled HD CVC presenting to Interventional Radiologyfor tunneled HD CVC exchange. Plan Planned procedure: Tunneled HD central venous catheter placement Labs to be performed day of procedure: No labs Sedation: Fentanyl only Prophylactic antibiotic : None Contrast: Omnipaque Additional medications for procedure: Lidocaine Position: Supine Consent: Scanned Medications to discontinue (and days held): None Cytopathology presence needed: No Case Urgency:: G3- Elective Outpatient intervention over14 days Labs: Lab Results Component Value Date [...] differently: Take 20 mg by mouth daily.) 60 tablet 0 ??? tacrolimus (PROGRAF) 1 mg Capsule Take 1 capsule by mouth 2 times daily. 60 capsule 0 ??? carvedilol (COREG) 12.5 mg Tablet Take 1 tablet by mouth 2 times daily (with meals). (Patient taking differently: Take 6.25 mg by mouth 2 times daily (with meals).) 60 tablet 3 ??? levothyroxine (SYNTHROID) 100 mcg Tablet Take 1 tablet by mouth daily. 90 tablet 0 No current facility-administered medications on file prior to visit. Past Medical/Surgical history: Patient Active Problem List Diagnosis Code [...] C44.329 ??? 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 [...] AV Fistula Evaluations 11/30/2019 Sabrina Velez MD [facility] RAD ??? IR DIALYSIS ACCESS - AV FISTULA EVALUATIONS 01/07/2021 IR Dialysis Access - AV Fistula Evaluations 01/07/2021 Sabrina Velez MD [facility] RAD ??? IR DIALYSIS ACCESS - AV FISTULA EVALUATIONS 09/25/2021 IR Dialysis Access - AV Fistula Evaluations 09/25/2021 Kanu Apple MD [facility] RAD ??? IR DIALYSIS ACCESS - AV FISTULA EVALUATIONS 10/10/2021 IR Dialysis Access - AV Fistula Evaluations 10/10/2021 Walt Lin MD [facility] RAD ??? IR DIALYSIS ACCESS - AV FISTULA EVALUATIONS 11/05/2021 IR Dialysis Access - AV Fistula Evaluations 11/05/2021 Walt Lin MD [facility] RAD ??? IR DIALYSIS ACCESS - TUNNELED LINE 07/30/2018 IR Dialysis Access - Tunneled Line 07/30/2018 Walt Lin MD [facility] RAD ??? IR DIALYSIS ACCESS - TUNNELED LINE 08/30/2018 IR Dialysis Access - Tunneled Line 08/30/2018 Erwin Simon APRN [facility] INTERVENTION[facility] RAD ??? IR DIALYSIS ACCESS - TUNNELED LINE 12/27/2020 IR Dialysis Access - Tunneled Line 12/27/2020 Kanu Apple MD [facility] RAD ??? IR DIALYSIS ACCESS - TUNNELED LINE 01/23/2021 IR Dialysis Access - Tunneled Line 01/23/2021 Kanu Apple MD [facility] RAD ??? IR DIALYSIS ACCESS - TUNNELED LINE 03/20/2021 IR Dialysis Access - Tunneled Line 03/20/2021 Tab Harmon MD [facility] RAD ??? IR DIALYSIS ACCESS - TUNNELED LINE 09/29/2021 IR Dialysis Access - Tunneled Line 09/29/2021 Tab Harmon MD [facility] RAD ??? IR LINE OR TUBE REMOVAL IN RECOVERY ROOM 07/31/2021 IR Line or Tube Removal in Recovery Room 07/31/2021 [facility] ??? KIDNEY TRANSPLANT KIDNEY TRANSPLANT / RECIPIENT/LT Procedure Date: 11/26/2002 ??? PRO ANASTOMOSIS, AV, ANY SITE Right 05/22/2021 AV FISTULA CREATION, DIRECT HEMODIALYSIS, ANY SITE, EG MADYSON FISTULA LOWER EXTREMITY (WRVU 11.9) performed by Odalis Elias MD at [facility] MAIN OR ??? PRO CREAT AV FISTULA, NON-AUTOGENOUS GRAFT Right 12/13/2018 PLACEMENT, AV HEMODIALYSIS GRAFT, SYNTHETIC GRAFT, UPPER EXTREMITY (WRVU 12.03) performed by Mary Garay MD at [facility] MAIN OR ??? PRO CREAT AV FISTULA, NON-AUTOGENOUS GRAFT Left 04/03/2021 PLACEMENT, AV HEMODIALYSIS GRAFT, SYNTHETIC GRAFT, UPPER EXTREMITY (WRVU 12.03) performed by Odalis Elias MD at [facility] MAIN OR ? ? PRO DEBRIDEMENT SUBCUTANEOUS TISSUE 20 SQCM/< Left 02/20/2016 DEBRIDEMENT SKIN AND SUBCU, HEAD/NECK performed by Miguel Agnel Moreno MD at [facility] MAIN OR ??? PRO DECOMPRESS FOREARM, BRACH ART EXPLOR Left 04/06/2018 FASCIOTOMY, FOREARM, WITH BRACHIAL ARTERY EXPLORATION (WRVU 8.41) performed by Lida [facility]at [facility] OR ??? PRO DIRECT REPAIR RUPTURED ANEURYSM, AXILLO-BRACHIAL ARM INCIS Left 04/06/2018 @REPAIR, RUPTURED AXILLARY OR BRACHIAL ARTERY ANEURYSM BY ARM INCISION (WRVU *) performed by Lida Peter MD at [facility] MAIN OR ??? PRO EXC PAROTD, TOTAL, UNILAT RAD NECK Left 02/05/2016 @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, TOTAL, WITH UNILATERAL RADICAL NECK DISSECTION performed by Miguel Angel Moreno MD at [facility] MAIN OR ??? PRO EXC SKIN MALIG 3.1-4CM FACE, FACIAL Left 02/05/2016 EXC MALIGNANT LESION, 3.1 TO 4.0CM, FACE performed by Miguel Angel Moreno MD at [facility] MAIN OR ? ? PRO EXC SKIN MALIG >4CM TRUNK, ARM, LEG 04/19/2012 EXC MALIGNANT LESION, MICHAEL > 4.0CM, TRUNK performed by SABRINA SANCHEZ at [facility] MAIN OR ??? PRO LAP, RADICAL NEPHRECTOMY Left 05/31/2017 @LAPAROSCOPY, RADICAL NEPHRECTOMY (WRVU 25.06) performed by Jax Mills MD at [facility] OR ??? PRO LIGATN ANGIOACCESS AV FISTULA Left 04/19/2018 LIGATION OR BANDING OF HEMODIALYSIS FISTULA OR GRAFT UPPER EXTREMITY (WRVU 6.25) performed by Odalis Elias MD at [facility] OR ??? PRO NEGATIVE PRESSURE WOUND THERAPY, LESS THAN OR EQUAL TO 50 SQCM Left 04/19/2018 DRESSING CHANGE (VAC ASSISTED) UP TO 50SQ.CM (WRVU 0.55) performed by [facility]alis [facility] OR ??? PRO PHLEB VEINS - EXTREM - TO 20 Right 05/22/2021 STAB PHLEBECTOMY LISBET VEINS 1 EXTREMITY 10-20 INCISIONS (WRVU 7.71) performed by Odalis Elias MD at [facility] MAIN OR ??? PRO REBL VES GRAFT, UP EXTREM Left 04/06/2018 REPAIR BLOOD VESSEL WITH GRAFT OTHER THAN VEIN, UPPER EXTREMITY (WRVU 15.83) performed by Lida Peter MD at [facility] OR ??? PRO RELIEVE PRESSURE ON NERVE(S) Left 04/06/2018 (MSURG) CARPAL TUNNEL (WRVU 4.82) performed by Silviano Sparks MD at [facility] MAIN OR ??? PRO REPAIR INTERMEDIATE S/A/T/E 2.6-7.5 CM 04/19/2012 REPAIR INTERMEDIATE WOUND, (NO HANDS OR FEET) 2.6 TO 7.5CM, UPPER EXTREMITY performed by SABRINA SANCHEZ at [facility] OR ? ? PRO REPAIR INTERMEDIATE S/A/T/E > 30.0 CM Left 04/14/2018 REPAIR INTERMEDIATE WOUND, (NO HANDS OR FEET) >30.0CM, UPPER EXTREMITY (WRVU 5) performed by Yimi Easton MD at [facility] OR ??? PRO REVISE MEDIAN N/CARPAL TUNNEL SURG Left 04/06/2018 MEDIAN NERVE DECOMPRESSION (CARPAL TUNNEL RELEASE) (WRVU 4.97) performed by Lida Peter MD [facility] MAIN OR ? ? PRO SPLIT GRFT TRUNK, ARM, LEG <100SQCM Left 04/26/2018 SPLIT THICK SKIN GRAFT,100 SQ CM OR LESS, ARMS (WRVU 9.9) performed by Silviano Sparks MD at [facility] MAIN OR ? ? PRO SPLIT GRFT, HEAD, FAC, HAND, FEET <100SQCM N/A 02/20/2016 SPLIT THICKNESS SKIN SPLIT GRAFT,100SQ CM OR LESS, NECK performed by Miguel Angel Moreno MD at [facility] MAIN OR ??? PRO SPLIT GRFT, TRUNK, ARM, LEG EA 100SQCM N/A 04/26/2018 EA.ADDITIONAL 100SQ.CM STSG (WRVU 1.72) performed by Silviano Sparks MD at [facility] MAIN OR ??? PRO UNLISTED PROCEDURE VASCULAR SURGERY Left 11/20/2015 LIGATION\REPAIR AV FISTULA performed by Camilo Ireland MD at [facility] MAIN OR ??? PRO UNLISTED PROCEDURE VASCULAR SURGERY Left 11/20/2015 EXCISION VEIN FROM HAND performed by Camilo Ireland MD at [facility] MAIN OR ??? PRO UPPER GI ENDOSCOPY, BIOPSY N/A 05/13/2017 EGD WITH BIOPSY (WRVU 2.49) performed by Aditya Barrera MD at [facility] ENDOSCOPY ??? US RENAL TRANSPLANT BIOPSY 12/31/2010 ??? US RENAL TRANSPLANT RIGHT Right 06/04/2018 US Renal Transplant Right 06/04/2018 [facility] RAD ULTRASOUND Social History and Habits: Social History Tobacco Use ??? Smoking status: Former Packs/day: 0.25 Years: 1.50 Pack years: 0.38 Types: Cigarettes Quit date: 12/03/2000 Years since quittin.8 ??? Smokeless tobacco: Former Quit date: 04/14/2001 Vaping Use ??? Vaping Use: Never used Substance Use Topics ??? Alcohol use: No ??? Drug use: No Types: Marijuana Comment: havent in years/1995 Significant Family History: Family History Problem Relation Age of Onset ??? Pancreatitis Father Pertinent ROS: as per HPI Physical Exam: Pending (to be performed in IR the day of procedure) ASA: Pending (to be assessed in IR the day of procedure) Mallampati class: Pending (to be assessed in IR the day of procedure) 09/24/2022 Mallory Caballero PA-C documented in this encounter Plan of Treatment Not on file documented as of this encounter Visit Diagnoses Not on filedocumented in this encounter Care Teams Machine Stuffer Relationship Specialty Start Date End Date Carroll Fuentes DO [address] [place] [address] PCP - General 09/23/11 10/20/22 documented as of this encounter
--- OUTSIDE RECORDS SUMMARY | 2024-04-22 10:52 | XMS_ITS | Encounter Summary ---
Author Organization [facility] [place] [address] Care Team Providers Care Building Construction Inspector Name Role Phone AlfredoCarroll allison Primary Care Provider [phone] Encounter Details Date Type Department Care Team (Late st Contact Info) Description 06/06/2021 12:30 PM EST Tech [place] [id number] Nicolás Marte ESRD (end stage renal disease) on dialysis [...] Procedure Name Priority Date/Time Associated Diagnosis Comments PRG DOPPLER FLOW TESTING, DUPLEX Routine 06/06/2021 12:25 PM EST ESRD (end stage renal disease) on dialysis documented in this encounter Results * AVF/Established Access Evaluation (06/06/2021 12:25 PM EST) VB Text Report Department: Vascular Surgery Lab Patient: [id number] (CHRISTY AMBROSE) CPT: 68848 ICD10: N18.6;Z99.2 Referring Physician: CRYSTAL JUAREZ ?? Indications: 2 weeks S/p SFA to SFV loop graft, with counterclockwise flow in graft, ? patency/stenosis ICD10 Diagnosis Code: N18.6, Z99.2 Findings: Right ? PSV (cm/s) ??EDV (cm/s) ??Flow (ml/min) ?? Inflow Artery, Site #1 ? 165 ?86 ? 2908 ?? Graft, Inflow Anastomosis ?364 ? 243 ? Graft, ??Proximal ? 317 ? 201 ? 2923 ?? Graft, Mid ? 347 ? 231 ? 2970 ?? Graft, Distal ?340 ? 239 ? 3299 ?? Graft, Outflow Anastomosis ? 273 ? 194 ? Outflow Vein, Site #1 ?179 ? 104 ? 1471 ?? Outflow Vein, Site #2 ?212 ? 111 ? 1375 ?? Interpretation: RIGHT: Patent superficial femoral artery to superficial femoral vein arterial venous graft. Elevated velocities throughout the graft; however, clinical significance of this is unlikely in view of excellent volume flow. Comparison: ??No previous study in our vascular lab database for comparison. Electronically Signed by: ZULAY FINK on 2021-06-09 08:42:39 AM [facility] VB Text Report End of Report [facility] 06/06/2021 12:2 5 PM EST Crystal Juarez APRN VASCULAR ORDERABLE S [facility] documented in this encounter Visit Diagnoses Diagnosis ESRD (end stage renal disease) on dialysis End stage renal disease documented in this encounter Care Teams Building Construction Inspector Relationship Specialty Start Date End Date Carroll Fuentes DO [address] [place] [address] PCP - General 09/23/11 10/20/22 documented as of this encounter
--- OUTSIDE RECORDS SUMMARY | 2024-04-22 10:52 | XMS_ITS | Encounter Summary ---
[place] [address] Care Team Providers Care Sports Media Name Role Phone AlfredoCarroll allison Primary Care Provider Reason for Referral * Diagnostic Test (Routine) - Closed Specialty Diagnoses / Procedures Referred By Contac t Referred To Contact Radiology Diagnoses CKD (chronic kidney disease) stage 5, GFR less than 15 ml/min Procedures IR Dialysis Access - Tunneled Line Luna Solorio APRN [facility] [address] [facility] [place] [address] Referral ID Status Reason Start Date Expiration Date V isits Requested Visits Authorized [id number] Closed Specialty Service Requested 09/24/2022 03/27/2024 1 1 Reason for Visit * Diagnostic Test (Routine) - Closed Specialty Diagnoses / Procedures Referred By Contac t Referred To Contact Radiology Diagnoses CKD (chronic kidney disease) stage 5, GFR less than 15 ml/min Procedures IR Dialysis Access - Tunneled Line Luna Solorio APRN [facility] [place] [address] [facility] [place] [address] Referral ID Status Reason Start Date Expiration Date V isits Requested Visits Authorized [id number] Closed Specialty Service Requested 09/24/2022 03/27/2024 1 1 Encounter Details Date Type Department Care Team (Latest Contact Info) Description 09/30/2022 10:27 AM EDT - 09/30/2022 11:59 PM EDT Hospital [place] [address] Luna Solorio, ROLL PRESS OPERATOR [facility] NEPHROLOGY [place] [id number] CKD (chronic kidney disease) stage 5, GFR [...] Sign Reading Time Taken Comments Blood Pressure 127/42 09/30/2022 12:44 PM EDT Pulse 59 09/30/2022 12:32 PM EDT Temperature 35.9 ??C (96.7 ??F) 09/30/2022 11:12 AM E DT Respiratory Rate 16 09/30/2022 12:44 PM EDT Oxygen Saturation 98% 09/30/2022 12:44 PM EDT Inhaled Oxygen Concentration - - Weight - - Height - - Body Mass Index - - documented in this encounter Discharge Instructions * Discharge Instructions* Hannah Haddad, RN - 09/30/2022 12:25 PM EDT [facility] Vascular and Interventional Radiology Discharge Instructions for [...] is during regular office hours, please call [phone]. If it is after regular office hours, or on weekends or holidays, please call [phone] and ask to speak to the Manager Food Beverage reception agent for Interventional Radiology. You have received medication [...] as of this encounter Progress Notes * Hannah Haddad RN - 09/30/2022 12:16 PM EDT [facility] NURSING DATABASE Name: Adama Ram Date of : 1960 AGE: 62 y.o. Address: [place] [address] (home) Mobile: No relevant phone numbers on file. Referring Provider: Luna Solorio REASON FOR VISIT: Order Questions Answers Where will study be performed? [facility] Radiology [120] Is the patient on anticoagulant / antiplatelet therapy ? Aspirin Reason for exam and clinical history: catheter exchange please, poor flow despite frequent use of cathflo Planned procedure: Tunneled HD central venous catheter exchange with possible sheath disruption Labs to be performed day of procedure: No labs Sedation: Fentanyl only Prophylactic antibiotic : None Contrast: Omnipaque Additional medications for procedure: Lidocaine Position: Supine Consent: Scanned Medications to discontinue (and days held): None Case Urgency:: G3- Elective Outpatient intervention over14 days Allergies Allergen Reactions Benazepril Hcl Codeine [...] parts of face C44.329 Prophylactic immunotherapy Z29.8 halfway current use of immunosuppressive drug Z79.899 H/O [...] Z99.2 Date/Procedure Meds Given/Comments 08/30/18 Tunneled HD Cath [...] HD T[place]eled [place] [facility] [place] only, tolerated well 09/25/21 RLE fistulagram [...] tunneled line exchange and angioplasty Local only. 1154 to procedure room 1 via stretcher. Onto table supine. All monitors, O2, safety strap in place.Meds per protocol. Laboratory Results: Lab Results Component Value Date INR 0.9 08/03/2018 Lab Results Component Value Date CREATININE 7.48 (H) 09/30/2021 Lab Results Component Value Date K 5.3 (H) 10/10/2021 Lab Results Component Value Date PLATELET 175 09/29/2021 documented in this encounter Procedure Notes * Damián Velez MD - 09/30/2022 12:38 PM EDT IR PROCEDURE NOTE Procedure: HD catheter exchange, balloon sheath disruption. Indication for Procedure: Per PANCHITO Coronado, Adama Ginna Ram is a 62 y.o. male with PMH of ESRD (HD via R IJ tunneled HD CVC placed September, multiple prior AVGs thrombosed) who presents to Interventional Radiology to undergo tunneled HD CVC exchange with possible sheath disruption in the setting of poor flow despite frequent use of Cathflo. Procedure events and findings: After obtaining informed consent patient was positioned supine on procedure table. Left neck base and upper chest with existing HD catheter prepped and draped, maximum sterile barrier technique was used throughout. Local anesthesia provided with 1% lidocaine. Contrastinjection via the HD catheter did not show obvious sheath. A stiff glide wire was passed through the existing HD catheter and directed into the IVC with fluoroscopic guidance. Existing HD catheter removed over wire. An 8 mm angioplasty balloon catheter was placed and used to break up any sheath that might be present. A new 14.5Fr 32cm HD catheter placed over the guide wire with tip positioned in RA under fluoroscopic guidance. Both catheter ports aspirate and flush readily. Catheter anchored with suture. Medications: 1% Lidocaine <10ccs subcutaneous. Est Blood Loss: <5cc. Complications: No immediate Impression: Exchange of left IJ tunneled hemodialysis catheter with 8 mm balloon sheath disruption.Catheter tip in right atrium, catheter tip in right atrium, catheter ready Resident/Fellow: None. Attending: Dr. Rosie Suarez performed this procedure. documented in this encounter Plan of Treatment Not on file documented as of this encounter Procedures Procedure Name Priority Date/Time Associated Diagnosis Comments IR DIALYSIS ACCESS - TUNNELED LINE Routine 09/30/2022 12:39 PM EDT CKD (chronic kidney disease) stage 5, GFR less than 15 ml/min documented in this encounter Results * IR [...] Dr. Rosie Suarez performed this procedure. Luna Solorio APRN IMG IR ORDERABLES documented in this encounter Visit Diagnoses Diagnosis CKD (chronic kidney disease) stage 5, GFR less than 15 ml/min Chronic kidney disease, Stage V documented in this encounter Administered Medications Inactive Administered Medications - up to 3 most recent administrations Medication Order MAR Action Action Date Dose Rate Site lidocaine (Xylocaine) 1% (10 mg/mL) injection 10 mg 10 mg, Subcutaneous, ONCE, 1 dose, On Wed09/30/22 at 1130, For use in Interventional Radiology (IR) only for procedure with direct provider supervision and verbal order., Angio/IR (Intra-Procedure), Routine Given 09/30/2022 12:14 PM EDT 10 mg documented in this encounter Care Teams Sports Media Relationship Specialty Start Date End Date Carroll Fuentes DO [address] [place] [address] [address] [place] [address] PCP - General 3/14/12 4/11/23 documented as of this encounter
--- OUTSIDE RECORDS SUMMARY | 2024-04-22 10:52 | XMS_ITS | Encounter Summary ---
[place] [address] Care Team Providers Care Experimental Mechanic [employer] Name Role Phone AlfredoCarroll allison Primary Care Provider [phone] Reason for Referral * Diagnostic Test (Routine) - Closed Specialty Diagnoses / Procedures Referred By Shashi ko Referred To Contact Radiology Diagnoses ESRD (end stage renal disease) Procedures IR Dialysis Access - Tunneled Line Luna Solorio [facility] [place] [address] [place] [address] Referral ID Status Reason Start Date Expiration Date V isits Requested Visits Authorized [id number] Closed Specialty Service Requested 10/07/2022 04/09/2024 1 1 Reason for Visit * Diagnostic Test (Routine) - Closed Specialty Diagnoses / Procedures Referred By Shashi ko Referred To Contact Radiology Diagnoses ESRD (end stage renal disease) Procedures IR Dialysis Access - Tunneled Line Luna Solorio SEMICOND[employer]CTOR PROCESSING GROUP LEADER [facility] [place] [address] [place] [address] Referral ID Status Reason Start Date Expiration Date V isits Requested Visits Authorized [id number] Closed Specialty Service Requested 10/07/2022 04/09/2024 1 1 Encounter Details Date Type Department Care Team (Latest Contact Info) Description 10/14/2022 8:14 AM EDT - 10/14/2022 11:59 PM EDT Hospital [place] [address] Luna Solorio APRN [facility] [place] [address] ESRD (end stage renal disease) Discharge Disposition: [...] Sign Reading Time Taken Comments Blood Pressure 126/30 10/14/2022 10:15 AM EDT Pulse 51 10/14/2022 10:15 AM EDT Temperature 36.6 ??C (97.8 ??F) 10/14/2022 10:15 AM E DT Respiratory Rate 16 10/14/2022 10:15 AM EDT Oxygen Saturation 96% 10/14/2022 10:15 AM EDT Inhaled Oxygen Concentration - - Weight - - Height - - Body Mass Index - - documented in this encounter Discharge Instructions * Discharge Instructions* Odalis Chang RN - 10/14/2022 10:13 AM EDT [facility] Vascular and Interventional Radiology Discharge Instructions for [...] is during regular office hours, please call [phone]. If it is after regular office hours, or on weekends or holidays, please call [phone] and ask to speak to the [employer] taxation inspector for Interventional Radiology. You have received medication [...] Progress Notes * Odalis Chang RN - 10/09/2022 4:06 PM EDT [facility] Name: Adama Ram Date of : 1960 AGE: 62 y.o. Address: [address] [address] Phone: [phone] (home) Mobile: Telephone Information: Referring Provider: Luna Solorio REASON FOR VISIT: Order Questions Answers Where will study be performed? [facility] Radiology [120] Is the patient on anticoagulant / antiplatelet therapy ? No Reason for exam and clinical history: Tunneled HD catheter with multiple arterial alarms, unable torun at prescribed blood flow rate. Clinical information / boyce questions for radiologist: Catheter was last repleced on 09/30, running poorly since. Per Dr. Velez maybe move tip position a bit Plan: Tunneled HD catheter revision. (possible change to RIJ) ? Labs: [per IR/CT protocol] Prophylactic antibiotic: [none] Medications to discontinue (and when): [none] Patient Position: [supine] Access site: Prep bilat IJ Sedation Plan : Mod Conscious Discharge Plan: home Allergies Allergen Reactions ??? Benazepril Hcl ??? [...] face C44.329 ??? 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 chief airport guide current use of immunosuppressive drug Z79.899 ??? [...] renal disease) on dialysis N18.6, Z99.2 Date/Procedure ?Meds Given/Comments 08/30/18 Tunneled HD Cath??Exchange Fentanyl 100mcg IV 11/30/19 RUE??Fistulagram??with multiple PTAs?? Fentanyl??175??mcg IV; Versed 3.5??mg IV [...] 3mg, heparin 5000U 11/05/21 Fistulagram, with angioplasty Fentanyl??200??mcg IV, Heparin 3000 units IV, Cathflo 1 mg intra-catheter,?09/30/22 HD tunneled line exchange and angioplasty ??Local only. 10/14/22 HD Line exchange for 15.5fr x 28cm Local - tolerated very well ?? 09 to procedure room 2 via stretcher. Onto table supine. All monitors, O2, safety strap in place.Meds per protocol. Laboratory Results: Lab Results Component Value Date INR 0.9 08/03/2018 Lab Results Component Value Date CREATININE 7.48 (H) 09/30/2021 Lab Results Component Value Date K 5.3 (H) 10/10/2021 Lab Results Component Value Date PLATELET 175 09/29/2021 documented in this encounter Procedure Notes * Damián Velez MD - 10/14/2022 10:06 AM EDT IR PROCEDURE NOTE Procedure: Tunneled hemodialysis catheter exchange Indication for Procedure: Per Dr. Harmon, Adama Ginna Ram is a 62 y.o. male with ESRD, dialysis via tunneled HD catheter. RIJ CVC placed 09/2021. Last replaced (with sheath disruption) 09/30 for poor flow despite frequent administration of CathFlo, still not functioning well. ?? 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 Has had multiple access procedures on the LUE as well as??a R brachioaxillary graft in 2018 which thrombosed in December 2020.?He??then underwent??left LUE AVG on 04/03/21??which thrombosed early on. Most recent RLE SFA-SFV loop graft which worked well until it thrombosed in September 2021 and then twice again in October. ??Currently dialyzed via R IJ catheter. Had catheter exchange 10/01/2022 plus 8 mm balloon sheath disruption for poor catheter function. Returns today again with reported poor catheter function. Procedure events and findings: Patient was positioned supine on procedure table. Left neck base andupper chest with existing HD catheter prepped and draped, maximum sterile barrier technique was used throughout. Local anesthesia provided with 1% lidocaine. Initial fluoroscopy showed catheter tip in the caudal right atrium. Both red and blue ports aspirated and flushed readily. A stiff glide wire was passed through the existing HD and directed into IVC with fluoroscopic guidance. The 32 cm HD catheter was exchanged for a 28 cm HD catheter over the guide wire with tip positioned in RA under fluoroscopic guidance. Catheter tip was positioned more cranially in the right atrium and the prior catheter. Both catheter ports aspirate and flush readily. Catheter anchored with suture. Medications: 1% Lidocaine <10ccs subcutaneous. Est Blood Loss: <5cc. Complications: No immediate. Impression: 1. 32 cm tunneled HD catheter exchanged for 28 cm tunneled HD catheter, tip slightly more cranial in right atrium, catheter ready for use. 2. Existing catheter aspirated and flushed readily on arrival, new catheter also flushes and aspirates readily. Difference in patient positioning between placement and dialysis may account for some of the change in function. Resident/Fellow: None. Attending: IDr. Velez performed this procedure. documented in this encounter Plan of Treatment Not on file documented as of this encounter Procedures Procedure Name Priority Date/Time Associated Diagnosis Comments IR DIALYSIS ACCESS - TUNNELED LINE Routine 10/14/2022 10:11 AM EDT ESRD (end stage renal disease) documented in this encounter Results * IR Dialysis Access - Tunneled Line (10/14/2022 10:11 AM EDT) Anatomical Region Laterality Modality Abdomen X-Ray Angiograph y Narrative 10/14/2022 10:20 AM EDT IR PROCEDURE NOTE ?? Procedure: Tunneled hemodialysis catheter exchange ?? Indication for Procedure: Per Adama Walter??is a 62 y.o.??male??with ESRD, dialysis via tunneled [...] IDr. Velez performed this procedure. Luna Solorio SEMICONDUCTOR PROCESSING GROUP LEADER IMG IR ORDERABLES documented in this encounter Visit Diagnoses Diagnosis ESRD (end stage renal disease) End stage renal disease documented in this encounter Care Teams Experimental Mechanic [employer] Relationship Specialty Start Date End Date Carroll Fuentes DO [address] [place] [address] PCP - General 09/23/11 10/20/22 documented as of this encounter
--- OUTSIDE RECORDS SUMMARY | 2024-04-22 10:52 | XMS_ITS | Encounter Summary ---
Author Organization [facility] [place] [address] Care Team Providers Care Tax Associate Name Role Phone Carroll Fuentes DO Primary Care Provider [phone] Encounter Details Date Type Department Care Team (Latest Contact Info) Description 09/30/2022 Travel Social History Tobacco Use Types Packs/Day [...] on filedocumented in this encounter Care Teams Tax Associate Relationship Specialty Start Date End Date Carroll Fuentes DO [address] [place] [address] PCP - General 09/23/11 10/20/22 documented as of this encounter
--- OUTSIDE RECORDS SUMMARY | 2024-04-22 10:52 | XMS_ITS | Encounter Summary ---
Author Organization [facility] [place] [address] Care Team Providers Care Infectious Disease Technician Name Role Phone Carroll Fuentes DO Primary Care Provider Encounter Details Date Type Department Care Team (Late st Contact Info) Description 10/02/2021 Orders Only [place]ph[place] [address] Luna Solorio REIMBURSEMENT REPRESENTATIVE [facility] [place] [address] ESRD (end stage renal disease) Social History [...] disease documented in this encounter Care Teams Infectious Disease Technician Relationship Specialty Start Date End Date Carroll Fuentes DO [address] [place] [address] PCP - General 09/23/11 10/20/22 documented as of this encounter
--- OUTSIDE RECORDS SUMMARY | 2024-04-22 10:53 | XMS_ITS | Encounter Summary ---
[place] [address] Care Team Providers Care Bung Driver Name Role Phone AlfredoCarroll allison Primary Care Provider [phone] Encounter Details Date Type Department Care Team (Late st Contact Info) Description 05/02/2021 Orders Only [place] [address] Krysta Treviño RN ESRD (end stage renal disease); Pre-op testing Social History Tobacco Use Types Packs/Day Years [...] documented as of this encounter Results * (ABNORMAL) Potassium (05/22/2021 1:25 PM EST) Potassium 7.3(Criti constance) 3.5 - 5.0 mmol/L [facility] Comment: Called by: , Read back by: Abimbola Andre, Date/Time:05/22/21 14:38. Please note: ??Patients with WBC >100,000 may have falsely elevated Potassium levels. ??For accurate Potassium quantification in these patients send serum separator tube (gold top) for subsequent determinations. ??Contact the Clinical Chemistry Laboratory if there are any questions. Blood 05/22/2021 1:25 PM EST 05/22/2021 1:36 PM EST Narrative Resulting Agency Comment Spec In Lab Odalis Elias MD CHEMISTRY ORDER KELLY Performing Organization Address City/State/[facility] Co de Phone Number [facility] [place] [address] documented in this encounter Visit Diagnoses Diagnosis ESRD (end stage renal disease) End stage renal disease Pre-op testing Preoperative examination, unspecified documented in this encounter Care Teams Bung Driver Relationship Specialty Start Date End Date Carroll Fuentes DO [address] [place] [address] PCP - General 09/23/11 10/20/22 documented as of this encounter
--- OUTSIDE RECORDS SUMMARY | 2024-04-22 10:53 | XMS_ITS | Encounter Summary ---
Author Organization [facility] Address [facility] [place] [address] Care Team Providers Care Financial Secretary Name Role Phone AlfredoCarroll allison Primary Care Provider [phone] Encounter Details Date Type Department Care Team (Late st Contact Info) Description 05/02/2021 3:15 PM EDT Office Visit [place] [address] Odalis Elias MD [facility] [place] [address] ESRD (end stage renal disease) Social History [...] Sign Reading Time Taken Comments Blood Pressure 187/137 05/02/2021 4:[address] Elias aware Pulse 56 05/02/2021 4:07 PM EDT Temperature - - Respiratory Rate - - Oxygen Saturation - - Inhaled Oxygen Concentration - - Weight 95.3 kg (210 lb) 05/02/2021 4:07 PM EDT Height 177.8 cm (5' 10) 05/02/2021 4:0 7 PM EDT Body Mass Index 30.13 05/02/2021 4:07 PM EDT documented in this encounter Progress Notes * Odalis Elias MD - 05/02/2021 3:15 PM EDT OUTPATIENT VASCULAR SURGERY FOLLOW-UP Reason for Visit: ESRD, post-op visit History of Present Illness: Adama Ram is a 60 y.o. male here for follow-up evaluation. He is s/p left LUE AVG on 04/03/21. He did well post-operatively but was then noted to have a thrombosed graft. 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 He is s/p multiple access procedures on the LUE and more recently a R brachioaxillary graft in 2018. In December of this year his graft was found to be occluded (outflow stenosis) and was unable to be opened. He is currently being dialyzed via R IJ catheter. He presents today to discuss options for future permanent access. Atherosclerotic Risk Factors: (n) DM (y) HTN (n) CAD (n) CHF (n) Hyperlipidemia (n) CVA reports that he quit smoking about 20 years ago. His smoking use included cigarettes. He has a 0.38pack-year smoking history. He quit smokeless tobacco use about 20 years ago. Access Procedures 03/2021 L brachio-axillary graft with early thrombosis [...] ml/min N18.4 ??? 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 [...] ??? End stage chronic kidney disease N18.6 Current Outpatient Medications: ??? guaiFENesin ER (Mucinex) [...] by mouth 2 times daily. 05/05/21 per [facility], patient taking 2 capsules in the [...] - Denies Functional Status/Social Hx: Lives in retirement, Drives Car, Denies Tobacco Use Family Hx: Negative for Thrombosis, Bleeding Disorders Physical Exam: BP (!) 187/137 (BP Location (NBP): Left leg, Patient Position: Sitting, BP Cuff Sizes: Adult (25-34cm)) Comment: Dr. Elias aware Pulse 56 Ht 177.8 cm (5' 10) Wt 95.3 kg (210 lb) BMI 30.13 kg/m?? General - NAD, appears stated age [...] fasciotomies/skin grafts, healed incisions of the upper arm Vascular Exam: R L Carotid 2/2 bruit (n) 2/2 bruit (n) Radial 2/2 2/2 Femoral 2/2 2/2 Popliteal 2/2 2/2 DP 2/2 2/2 PT 2/2 2/2 Labs: No results found for this or any previous visit (from the past 72 hour(s)). Studies: No flowsheet data found. Assessment and Plan: 60 y.o. male with ESRD and multiple failed access procedures in both upper extremities. Best option at this point would be a LE loop (SFA-SFV) graft. We will plan for surgery on a Wednesday or . documented in this encounter Plan of Treatment Not on file documented as of this encounter Visit Diagnoses Diagnosis ESRD (end stage renal disease) End stage renal disease documented in this encounter Care Teams Financial Secretary Relationship Specialty Start Date End Date Carroll Fuentes DO [address] [place] [address] PCP - General 09/23/11 10/20/22 documented as of this encounter
--- OUTSIDE RECORDS SUMMARY | 2024-04-22 10:53 | XMS_ITS | Encounter Summary ---
Author Organization Formerly [facility], [facility] [place] [address] Care Team Providers Care Manager Process Improvement Name Role Phone Carroll Fuentes DO Primary Care Provider [phone] Reason for Referral * Diagnostic Test (Routine) - Closed Specialty Diagnoses / Procedures Referred By Shashi ko Referred To Contact Radiology Diagnoses ESRD (end stage renal disease) Procedures IR Dialysis Access - Tunneled Line Carroll Baires MD [facility] [place] [address] [place] [address] Referral ID Status Reason Start Date Expiration Date V isits Requested Visits Authorized [id number] Closed Specialty Service Requested 01/21/2021 07/24/2022 1 1 Reason for Visit * Diagnostic Test (Routine) - Closed Specialty Diagnoses / Procedures Referred By Shashi ko Referred To Contact Radiology Diagnoses ESRD (end stage renal disease) Procedures IR Dialysis Access - Tunneled Line Carroll Baires MD [facility] [place] [address] [facility] [place] [address] Referral ID Status Reason Start Date Expiration Date V isits Requested Visits Authorized [id number] Closed Specialty Service Requested 01/21/2021 07/24/2022 1 1 Encounter Details Date Type Department Care Team (Latest Contact Info) Description 01/23/2021 6:33 AM EDT - 01/23/2021 11:59 PM EDT Hospital En[place] [address] Carroll Baires MD [facility] [place] [address] Ene Paredes RN ESRD (end stage renal disease) Discharge Disposition: [...] Sign Reading Time Taken Comments Blood Pressure 110/71 01/23/2021 8:34 AM EDT Pulse 49 01/23/2021 8:34 AM EDT Temperature 37 ??C (98.6 ??F) 01/23/2021 8:34 AM EDT Respiratory Rate 20 01/23/2021 8:34 AM EDT Oxygen Saturation 95% 01/23/2021 8:34 AM EDT Inhaled Oxygen Concentration - - Weight - - Height - - Body Mass Index - - documented in this encounter Discharge Instructions * Discharge Instructions* Dania Swartz RN - 01/23/2021 7:54 AM EDT [facility] Vascular/Interventional Radiology DISCHARGE INSTRUCTIONS FOR TUNNELED CENTRAL VENOUS CATHETER CARE Bandage: There is a sterile dressing over the catheter site consisting of a small gauze with a clear dressing ( Tegaderm) over it. This dressing will be changed or removed by the hospital staff, and you should not change it at home. If the clear dressing becomes loose, you should place tape over the edges to secure it in place. Never touch the open end of the CVC when the cap has been removed. Bathing: You may shower 72 hours after the catheter has been inserted. When you shower or bathe, you must cover the site with a waterproof material, such as plastic wrap, taped over the dressing and injection caps. Pain: Apply ice bag to site (s) at 30 minute intervals (30 minutes on and 30 minutes off) for 24 hours. May use as needed for pain and/or bruising after 24 hours. When to call your healthcare provider: ?? If you develop pain, redness, drainage of swelling at the catheter or neck puncture site. ?? If you develop a fever of 101 degrees or greater. ?? If you develop shaking chills. ?? If the catheter breaks, or you notice leaking from one of the ports or the catheter itself. ?? If you notice bleeding from the catheter or the neck puncture sites, apply firm pressure over both sites simultaneously for 10-15 minutes. If you are still bleeding after 10-15 minutes, have someone drive you to the nearest Emergency Department or call 911. When to call the Interventional Radiology Department: Please call with any questions or concerns. If it is during regular working hours, please call [phone]. If it is after 5 pm or a weekend or holiday, call [phone] and ask for the Machine Sole Leveler deputy probation officer for Interventional Radiology. You have received medication during your procedure to help lessen anxiety and keep you comfortable.We recommend that you do not drive, operate equipment, sign any important documents, or smoke unattended for 24 hours following your procedure. Be careful on stairs, as you may be unsteady on your feet. You may eat a regular diet as tolerated IV site -- slight redness, or tenderness is normal, you can use a warm compress. If tenderness and redness increases or foul drainage occurs, please contact your M. D. Updated 04/27/19 documented in this encounter Medications [...] tablet by mouth daily. 90 tablet 2018 dilTIAZem (CARTIA XT) 120 mg Capsule, Sust. Release 24 hrIndications:H/O kidney transplant Take 1 capsule by mouth daily. 90 capsule 2018 05/05/2021 multivitamin Capsule Take 1 capsule by mouth daily. 30 capsule 2018 12/25/2022 allopurinol (ZYLOPRIM) 100 mg Tablet Take 1 tablet by mouth daily. 30 tablet 11 2018 10/21/2022 amLODIPine (NORVASC) 10 mg Tablet Take 1 tablet by mouth daily. 30 tablet 2018 05/05/2021 losartan (COZAAR) 100 mg Tablet Take 1 tablet by mouth every morning. 60 tablet 2018 10/21/2022 pantoprazole (PROTONIX) 20 mg Tablet, Delayed Release (E.C.) Take 1 tablet by mouth 2 times daily. 60 tablet 2018 10/21/2022 calcium carbonate (TUMS) 200 mg calcium (500 mg) Tablet, Chewable Take 2 tablets by mouth 3 times daily (with meals). 90 tablet 2018 05/05/2021 hydrALAZINE (APRESOLINE) 100 mg Tablet Take 1 tablet by mouth 3 times daily. 90 tablet 2018 05/05/2021 tacrolimus (PROGRAF) 1 mg Capsule Take 1 capsule by mouth 2 times daily. 60 capsule 2018 10/21/2022 carvedilol (COREG) 12.5 mg Tablet Take 1 tablet by mouth 2 times daily (with meals). 60 tablet 3 2018 10/21/2022 documented as of this encounter Progress Notes * Dania Swartz RN - 01/23/2021 7:32 AM EDT [facility] DATAB[facility] Name: CHRISTY AMBROSE Date of : 1960 AGE: 60 y.o. [address]: [address] [place] [id number] (home) Mobile: Telephone Information: Referring Provider: Carroll Baires REASON FOR VISIT: Order Questions Answers Where will study be performed? [facility] Radiology [120] Is the patient on anticoagulant / antiplatelet therapy ? Aspirin Reason for exam and clinical history: catheter exchange for poor flow, no draw from arterial limb Allergies Allergen Reactions ??? Benazepril Hcl ??? Codeine Other (See Comments) Patient does not know reaction ??? Hydrochlorothiazide ??? Pollen Extracts Sneezing/runny nose Pertinent PSH: Past Surgical History: Procedure Laterality Date ??? CREATED BY INTERFACE Entered not Verified Procedure Date: 09/19/2010 ??? IR DIALYSIS ACCESS - AV FISTULA EVALUATIONS 11/30/2019 IR Dialysis Access - AV Fistula Evaluations 11/30/2019 Sabrina Velez MD [facility] INTERVENTIONL RAD ??? IR DIALYSIS ACCESS - AV FISTULA EVALUATIONS 01/07/2021 IR Dialysis Access - AV Fistula Evaluations 01/07/2021 Sabrina Velez MD [facility] INTERVENTIONL RAD ??? IR DIALYSIS ACCESS - TUNNELED LINE 07/30/2018 IR Dialysis Access - Tunneled Line 07/30/2018 Walt Lin MD [facility] INTERVENTIONL RAD ??? IR DIALYSIS ACCESS - TUNNELED LINE 08/30/2018 IR Dialysis Access - Tunneled Line 08/30/2018 Erwin Simon APRN [facility] INTERVENTIONL RAD ??? IR DIALYSIS ACCESS - TUNNELED LINE 12/27/2020 IR Dialysis Access - Tunneled Line 12/27/2020 Kanu Apple MD [facility] INTERVENTIONL RAD ??? KIDNEY TRANSPLANT KIDNEY TRANSPLANT / RECIPIENT/LT Procedure Date: 11/26/2002 ??? PRO CREAT AV FISTULA, NON-AUTOGENOUS GRAFT Right 12/13/2018 PLACEMENT, AV HEMODIALYSIS GRAFT, SYNTHETIC GRAFT, UPPER EXTREMITY (WRVU 12.03) performed by Mary Garay MD at [facility] MAIN OR ? ? PRO DEBRIDEMENT SUBCUTANEOUS TISSUE 20 SQCM/< Left 02/20/2016 DEBRIDEMENT SKIN AND SUBCU, HEAD/NECK performed by Miguel Angel Moreno MD at [facility] MAIN OR ??? PRO DECOMPRESS FOREARM, BRACH ART EXPLOR Left 04/06/2018 FASCIOTOMY, FOREARM, WITH BRACHIAL ARTERY EXPLORATION (WRVU 8.41) performed by Lida Peter MDat [facility] OR ??? PRO DIRECT REPAIR RUPTURED ANEURYSM, AXILLO-BRACHIAL ARM INCIS Left 04/06/2018 @REPAIR, RUPTURED AXILLARY OR BRACHIAL ARTERY ANEURYSM BY ARM INCISION (WRVU *) performed by Lida Peter MD at [facility] OR ??? PRO EXC PAROTD, TOTAL, UNILAT RAD NECK Left 02/05/2016 @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, TOTAL, WITH UNILATERAL RADICAL NECK DISSECTION performed by Miguel Angel Moreno MD at [facility] OR ??? PRO EXC SKIN MALIG 3.1-4CM FACE, FACIAL Left 02/05/2016 EXC MALIGNANT LESION, 3.1 TO 4.0CM, FACE performed by Miguel Angel Moreno MD at [facility] OR ? ? PRO EXC SKIN MALIG >4CM TRUNK, ARM, LEG 04/19/2012 EXC MALIGNANT LESION, MICHAEL > 4.0CM, TRUNK performed by SABRINA SANCHEZ at [facility] OR ??? PRO LAP, RADICAL NEPHRECTOMY Left 05/31/2017 @LAPAROSCOPY, RADICAL NEPHRECTOMY (WRVU 25.06) performed by Jax Mills MD at [facility] OR ??? PRO LIGATN ANGIOACCESS AV FISTULA Left 04/19/2018 LIGATION OR BANDING OF HEMODIALYSIS FISTULA OR GRAFT UPPER EXTREMITY (WRVU 6.25) performed by Odalis Elias MD at [facility] OR ??? PRO NEGATIVE PRESSURE WOUND THERAPY, LESS THAN OR EQUAL TO 50 SQCM Left 04/19/2018 DRESSING CHANGE (VAC ASSISTED) UP TO 50SQ.CM (WRVU 0.55) performed by Odalis Elias [facility] OR ??? PRO REBL VES GRAFT, UP EXTREM Left 04/06/2018 REPAIR BLOOD VESSEL WITH GRAFT OTHER THAN VEIN, UPPER EXTREMITY (WRVU 15.83) performed by Lida Peter MD at [facility] OR ??? PRO RELIEVE PRESSURE ON NERVE(S) Left 04/06/2018 (MSURG) CARPAL TUNNEL (WRVU 4.82) performed by Silviano Sparks MD at [facility] MAIN OR ??? PRO REPAIR INTERMEDIATE S/A/T/E 2.6-7.5 CM 04/19/2012 REPAIR INTERMEDIATE WOUND, (NO HANDS OR FEET) 2.6 TO 7.5CM, UPPER EXTREMITY performed by SABRINA SANCHEZ at [facility] MAIN OR ? ? PRO REPAIR INTERMEDIATE S/A/T/E > 30.0 CM Left 04/14/2018 REPAIR INTERMEDIATE WOUND, (NO HANDS OR FEET) >30.0CM, UPPER EXTREMITY (WRVU 5) performed by Yimi Easton MD at [facility] MAIN OR ??? PRO REVISE MEDIAN N/CARPAL TUNNEL SURG Left 04/06/2018 MEDIAN NERVE DECOMPRESSION (CARPAL TUNNEL RELEASE) (WRVU 4.97) performed by Lida Peter MD [facility] MAIN OR ? ? PRO SPLIT GRFT TRUNK, ARM, LEG <100SQCM Left 04/26/2018 SPLIT THICK SKIN GRAFT,100 SQ CM OR LESS, ARMS (WRVU 9.9) performed by Silviano Sparks MD at [facility] MAIN OR ? ? PRO SPLIT GRFT, HEAD, FAC, HAND, FEET <100SQCM N/A 02/20/2016 SPLIT THICKNESS SKIN SPLIT GRAFT,100SQ CM OR LESS, NECK performed by Miguel Angel Moreno MD at [facility] MAIN OR ??? PRO SPLIT GRFT, TRUNK, ARM, LEG EA 100SQCM N/A 04/26/2018 EA.ADDITIONAL 100SQ.CM STSG (WRVU 1.72) performed by Silviano Sparks MD at [facility] MAIN OR ??? PRO UPPER GI ENDOSCOPY, BIOPSY N/A 05/13/2017 EGD WITH BIOPSY (WRVU 2.49) performed by Aditya Barrera MD at [facility] ENDOSCOPY ??? PRO VASCULAR SURGERY PROCEDURE UNLIST Left 11/20/2015 LIGATION\REPAIR AV FISTULA performed by Camilo Ireland MD at [facility] MAIN OR ??? PRO VASCULAR SURGERY PROCEDURE UNLIST Left 11/20/2015 EXCISION VEIN FROM HAND performed by Camilo Ireland MD at [facility] MAIN OR ??? US RENAL TRANSPLANT BIOPSY 12/31/2010 ??? US RENAL TRANSPLANT RIGHT Right 06/04/2018 US Renal Transplant Right 06/04/2018 [facility] RAD ULTRASOUND Date/Procedure Meds given/comments 08/30/18 Tunneled HD Cath??Exchange Fentanyl 100mcg IV 11/30/19 RUE??Ffistulagram??with multiple PTAs?? Fentanyl??175??mcg IV; Versed 3.5??mg IV (pt awake for the most part,??BP??sensitive to sedation even with half doses). 12/27/20??Tunneled??Line??Placement Fentanyl??250??mcg IV, tolerated well 01/07/2021 RUE fistulagram and tunneled line exchange Fentanyl 50 mcg IV Versed 1 mg IV 01/23/21 HD Tunneled line exchange Local only, tolerated well ? 0744 to procedure room 6 via stretcher. Onto stretcher supine. All monitors, O2, safety strap in place. Meds per protocol. ?? Laboratory Results: Lab Results Component Value Date INR 0.9 08/03/2018 Lab Results Component Value Date CREATININE 5.17 (H) 12/14/2018 Lab Results Component Value Date K 4.5 12/14/2018 Lab Results Component Value Date PLATELET 172 12/13/2018 documented in this encounter H&P Notes * Tab Harmon MD - 01/22/2021 2:18 PM EDT Images from the original note were not included. Interventional Radiology Focused Pre-procedure H&P: PRE-SEDATION ASSESSMENT / FOCUSED H&P Addendum: The patient's history and physical exam have been reviewed and completed. There has been no interval change from that of the pre-operative history and physical exam done within the last 30 days. Risks (including hemorrhage, infection, allergic reaction, occlusion, respiratory depression), and benefits discussed and patient consented to the procedure. I have reviewed with the patient, their prior experience with sedation. The patient has been NPO per protocol I have reviewed the sedation plan for this patient???s case and concur that Fentanyl and Versed areappropriate choices for sedation and will be provided per the protocoled order set for this case Physical Exam Heart: RRR Lungs: clear ASA Classification: ASA 3 - Patient with moderate systemic disease with functional limitations Mallampati Classification: II (soft palate, uvula, fauces visible) PCP: Carroll Fuentes DO Referring Provider: Carroll Baires Planned procedure: Tunneled dialysis catheter exchange Procedure indication: ESRD, malfunctioning dialysis catheter IR workflow: Procedure request received through Interventional Radiology eDH order queue. Order Questions Answers Where will study be performed? [facility] Radiology [120] Is the patient on anticoagulant / antiplatelet therapy ? Aspirin Reason for exam and clinical history: catheter exchange for poor flow, no draw from arterial limb History of present illness: Per chart review, Christy Ambrose is a 60 y.o. male who presents to Interventional Radiology to undergo exchange of indwelling dialysis catheter in setting of ESRD. This is a patient who underwent exchange of right neck catheter on 01/07/21, now reportedly with a nonfunctional lumen. 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 He remains catheter dependent. Tolerates well with local anesthetic. Medical history notable for hypertension, gout, traumatic brain injury. Remainder of patient's medical and surgical history, allergies, medications, and social/family history obtained below as previously outlined in patient's medical record. IR history: ?? Date/Procedure Meds given/comments 08/30/18 Tunneled HD Cath??Exchange Fentanyl 100mcg IV 11/30/19 RUE??Ffistulagram??with multiple PTAs?? Fentanyl??175??mcg IV; Versed 3.5??mg IV (pt awake for the most part,??BP??sensitive to sedation even with half doses). 12/27/20??Tunneled??Line??Placement Fentanyl??250??mcg IV, tolerated well 01/07/2021??RUE fistulagram??and tunneled line exchange Fentanyl??50??mcg IV Versed??1??mg IV Imaging: Assessment: 60 y.o. male with nonfunctional dialysis catheter presenting to Interventional Radiology for exchange. Plan Planned procedure: Tunneled dialysis catheter exchange Labs to be performed day of procedure: No labs Sedation: No Sedation Contrast: No contrast Additional medications for procedure: Lidocaine Position: Supine Consent: Completed Case Urgency:: D- Intervention within 24 hrs Labs: Lab Results Component Value Date HGB 10.5 (L) 12/13/2018 HCT 32.3 (L) 12/13/2018 WBC 4.8 12/13/2018 PLATELET 172 12/13/2018 INR 0.9 08/03/2018 BUN 39 (H) 12/14/2018 CREATININE 5.17 (H) 12/14/2018 ALBUMIN 4.2 11/29/2018 BILIDIR 0.2 05/15/2017 BILITOT 0.5 11/29/2018 AST 14 11/29/2018 ALT 13 11/29/2018 ALKPHOS 93 11/29/2018 Allergies: Benazepril hcl, Codeine, Hydrochlorothiazide, and Pollen extracts Medications: Current Outpatient Medications on File Prior to Encounter Medication Sig Dispense Refill ??? aspirin 81 mg Tablet, Delayed Release (E.C.) Take 1 tablet by mouth daily. 30 tablet 3 ??? dilTIAZem (CARTIA XT) 120 mg Capsule, Sust. Release 24 hr Take 1 capsule by mouth daily. 90 capsule 0 ??? multivitamin Capsule Take 1 capsule by mouth daily. 30 capsule 0 ??? allopurinol (ZYLOPRIM) 100 mg Tablet Take 1 tablet by mouth daily. 30 tablet 11 ??? acetaminophen (TYLENOL) 500 mg Tablet Take 2 tablets by mouth every 6 hours. 30 tablet 1 ??? amLODIPine (NORVASC) 10 mg Tablet Take 1 tablet by mouth daily. 30 tablet 0 ??? levETIRAcetam (KEPPRA) 500 mg Tablet Take 1 tablet by mouth 2 times daily. 60 tablet 0 ??? losartan (COZAAR) 100 mg Tablet Take 1 tablet by mouth every morning. 60 tablet 0 ??? pantoprazole (PROTONIX) 20 mg Tablet, Delayed Release (E.C.) Take 1 tablet by mouth 2 times daily. 60 tablet 0 ??? calcium carbonate (TUMS) 200 mg calcium (500 mg) Tablet, Chewable Take 2 tablets by mouth 3 times daily (with meals). 90 tablet 0 ??? hydrALAZINE (APRESOLINE) 100 mg Tablet Take 1 tablet by mouth 3 times daily. 90 tablet 0 ??? tacrolimus (PROGRAF) 1 mg Capsule Take 1 capsule by mouth 2 times daily. 60 capsule 0 ??? carvedilol (COREG) 12.5 mg Tablet Take 1 tablet by mouth 2 times daily (with meals). 60 tablet 3 ??? levothyroxine (SYNTHROID) 100 [...] Acne rosacea L71.9 ??? Rosacea L71.9 ??? Anticoagulated on Coumadin Z79.01 ??? Atopic rhinitis J30.9 ??? Injury of [...] ml/min N18.4 ??? 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 [...] ??? End stage chronic kidney disease N18.6 Past Medical History: Diagnosis Date ??? BP [...] AV Fistula Evaluations 11/30/2019 Sabrina Velez MD [facility] INTERVENTIONL RAD ??? IR DIALYSIS ACCESS - AV FISTULA EVALUATIONS 01/07/2021 IR Dialysis Access - AV Fistula Evaluations 01/07/2021 Sabrina Velez MD [facility] INTERVENTIONL RAD ??? IR DIALYSIS ACCESS - TUNNELED LINE 07/30/2018 IR Dialysis Access - Tunneled Line 07/30/2018 Walt Lin MD [facility] INTERVENTIONL RAD ??? IR DIALYSIS ACCESS - TUNNELED LINE 08/30/2018 IR Dialysis Access - Tunneled Line 08/30/2018 Erwin Simon, [place] [facility] INTERVENTIONL RAD ??? IR DIALYSIS ACCESS - TUNNELED LINE 12/27/2020 IR Dialysis Access - Tunneled Line 12/27/2020 Kanu Apple MD [facility] INTERVENTIONL RAD ??? KIDNEY TRANSPLANT KIDNEY TRANSPLANT / RECIPIENT/LT Procedure Date: 11/26/2002 ??? PRO CREAT AV FISTULA, NON-AUTOGENOUS GRAFT Right 12/13/2018 PLACEMENT, AV HEMODIALYSIS GRAFT, SYNTHETIC GRAFT, UPPER EXTREMITY (WRVU 12.03) performed by Mary Garay MD at [facility] MAIN OR ? ? PRO DEBRIDEMENT SUBCUTANEOUS TISSUE 20 SQCM/< Left 02/20/2016 DEBRIDEMENT SKIN AND SUBCU, HEAD/NECK performed by Miguel Angel Moreno MD at [facility] MAIN OR ??? PRO DECOMPRESS FOREARM, BRACH ART EXPLOR Left 04/06/2018 FASCIOTOMY, FOREARM, WITH BRACHIAL ARTERY EXPLORATION (WRVU 8.41) [facility] MA[facility] OR ??? PRO DIRECT REPAIR RUPTURED ANEURYSM, AXILLO-BRACHIAL ARM INCIS Left 04/06/2018 @REPAIR, RUPTURED AXILLARY OR BRACHIAL ARTERY ANEURYSM BY ARM INCISION (WRVU *) performed by Lida Peter MD at [facility] OR ??? PRO EXC PAROTD, TOTAL, UNILAT RAD NECK Left 02/05/2016 @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, TOTAL, WITH UNILATERAL RADICAL NECK DISSECTION performed by Miguel Angel Moreno MD at [facility] OR ??? PRO EXC SKIN MALIG 3.1-4CM FACE, FACIAL Left 02/05/2016 EXC MALIGNANT LESION, 3.1 TO 4.0CM, FACE performed by Miguel Angel Moreno MD at [facility] OR ? ? PRO EXC SKIN MALIG >4CM TRUNK, ARM, LEG 04/19/2012 EXC MALIGNANT LESION, MICHAEL > 4.0CM, TRUNK performed by SABRINA SANCHEZ at [facility] OR ??? PRO LAP, RADICAL NEPHRECTOMY Left 05/31/2017 @LAPAROSCOPY, RADICAL NEPHRECTOMY (WRVU 25.06) performed by Jax Mills MD at [facility] OR ??? PRO LIGATN ANGIOACCESS AV FISTULA Left 04/19/2018 LIGATION OR BANDING OF HEMODIALYSIS FISTULA OR GRAFT UPPER EXTREMITY (WRVU 6.25) performed by Odalis Elias MD at [facility] MAIN OR ??? PRO NEGATIVE PRESSURE WOUND THERAPY, LESS THAN OR EQUAL TO 50 SQCM Left 04/19/2018 DRESSING CHANGE (VAC ASSISTED) UP TO 50SQ.CM (WRVU 0.55) performed by Odalis Elias MD [facility] MAIN OR ??? PRO REBL VES GRAFT, UP EXTREM Left 04/06/2018 REPAIR BLOOD VESSEL WITH GRAFT OTHER THAN VEIN, UPPER EXTREMITY (WRVU 15.83) performed by Ldia Peter MD at [facility] OR ??? PRO RELIEVE PRESSURE ON NERVE(S) Left 04/06/2018 (MSURG) CARPAL TUNNEL (WRVU 4.82) performed by Silviano Sparks MD at [facility] OR ??? PRO REPAIR INTERMEDIATE S/A/T/E 2.6-7.5 CM 04/19/2012 REPAIR INTERMEDIATE WOUND, (NO HANDS OR FEET) 2.6 TO 7.5CM, UPPER EXTREMITY performed by SABRINA SANCHEZ at [facility] MAIN OR ? ? PRO REPAIR INTERMEDIATE S/A/T/E > 30.0 CM Left 04/14/2018 REPAIR INTERMEDIATE WOUND, (NO HANDS OR FEET) >30.0CM, UPPER EXTREMITY (WRVU 5) performed by Yimi Easton MD at [facility] MAIN OR ??? PRO REVISE MEDIAN N/CARPAL TUNNEL SURG Left 04/06/2018 MEDIAN NERVE DECOMPRESSION (CARPAL TUNNEL RELEASE) (WRVU 4.97) performed by Lida Peter MD [facility] MAIN OR ? ? PRO SPLIT GRFT TRUNK, ARM, LEG <100SQCM Left 04/26/2018 SPLIT THICK SKIN GRAFT,100 SQ CM OR LESS, ARMS (WRVU 9.9) performed by Silviano Sparks MD at [facility] MAIN OR ? ? PRO SPLIT GRFT, HEAD, FAC, HAND, FEET <100SQCM N/A 02/20/2016 SPLIT THICKNESS SKIN SPLIT GRAFT,100SQ CM OR LESS, NECK performed by Miguel Angel Moreno MD at [facility] MAIN OR ??? PRO SPLIT GRFT, TRUNK, ARM, LEG EA 100SQCM N/A 04/26/2018 EA.ADDITIONAL 100SQ.CM STSG (WRVU 1.72) performed by Silviano Sparks MD at [facility] MAIN OR ??? PRO UPPER GI ENDOSCOPY, BIOPSY N/A 05/13/2017 EGD WITH BIOPSY (WRVU 2.49) performed by Aditya Barrera MD at [facility] ENDOSCOPY ??? PRO VASCULAR SURGERY PROCEDURE UNLIST Left 11/20/2015 LIGATION\REPAIR AV FISTULA performed by Camilo Ireland MD at [facility] MAIN OR ??? PRO VASCULAR SURGERY PROCEDURE UNLIST Left 11/20/2015 EXCISION VEIN FROM HAND performed by Camilo Ireland MD at [facility] MAIN OR ??? US RENAL TRANSPLANT BIOPSY 12/31/2010 ??? US RENAL TRANSPLANT RIGHT Right 06/04/2018 US Renal Transplant Right 06/04/2018 [facility] RAD ULTRASOUND Social history and habits: Social History Tobacco Use ??? Smoking status: Former Smoker Packs/day: 0.25 Years: 1.50 Pack years: 0.37 Types: Cigarettes Quit date: 12/03/2000 Years since quittin.1 ??? Smokeless tobacco: Former User Quit date: [...] in interventional radiology the day of procedure) 01/22/2021 PANCHITO Lipscomb documented in this encounter Plan of Treatment Not on file documented as of this encounter Procedures Procedure Name Priority Date/Time Associated Diagnosis Comments IR DIALYSIS ACCESS - TUNNELED LINE Routine 01/23/2021 8:31 AM EDT ESRD (end stage renal disease) documented in this encounter Results * IR Dialysis Access - Tunneled Line (01/23/2021 8:31 AM EDT) Anatomical Region Laterality Modality Abdomen X-Ray Angiograph y Narrative 01/23/2021 8:52 AM EDT IR Procedure Note Procedure: Over the wire exchange of a right tunneled hemodialysis catheter Superior vena cavagram ??Balloon disruption of potential catheter related sheath History/indication: ??60 yr old ??M patient with CKD, on hemodialysis. He underwent exchange of right neck catheter on 01/07/21, now reportedly with a nonfunctional lumen. Over the wire exchange is requested. ? Technique: ?? Informed consent was obtained. The patient was positioned supine and the right sided tunneled HD catheter prepped and draped in as sterile fashion. Maximal sterile barrier technique was employed throughout the case. No sedation was administered (patient request); the IR nurse continuously monitored heart rate, blood pressure, O2 saturation, and end tidal CO2 parameters. 1% lidocaine was used as local anesthesia. Fluoroscopy shows the catheter tip positioned at the RA-SVC junction. ?? The retention cuff was freed from the surrounding tissues using blunt dissection. A stiff glide wire was advanced through each catheter lumen into the IVC. A superior vena cavagram was performed to exclude a stenosis in the region of the catheter tip. ?? The catheter was then removed; a 8 mm x 4 cm MATERIAL HANDLING TECHNICIAN balloon was advanced and inflated along the length of the SVC to disrupt any potential catheter-related sheath's contribution to catheter dysfunction. A new 14.5 Fr x 23 CM cuff to tip Palindrome tunneled dialysis catheter was replaced with the tip positioned at the SVC-RA junction. The external portion of the catheter was secured using 2-0 nylon suture. The patient tolerated the procedure well. Complications: ?None immediate; ??EBL=3 cc Medications: ??1% lidocaine (<10 cc) Contrast: ?? 5 cc non-ionic/omnipaque Fluoroscopy time: ??40 seconds Findings: 1. No SVC stenosis on venography 2. MATERIAL HANDLING TECHNICIAN balloon disruption of any potential catheter-related sheath as above. 3. Over the wire exchange of a tunneled hemodialysis catheter as above; catheter ready for immediate use. Note: a Pallindrome design catheter was used in an attempt to provide better, more durable catheter function. Attending: ?Greyson Apple MD ? I was present during the intraservice time as documented by the IR Nurse. Carroll Baires MD [facility] [place] documented in this encounter Visit Diagnoses Diagnosis ESRD (end stage renal disease) End stage renal disease documented in this encounter Administered Medications Inactive Administered Medications - up to 3 most recent administrations Medication Order MAR Action Action Date Dose Rate Site iohexoL (Omnipaque) (350 mg/mL) injection solution 10 mL 10 mL, Intravenous, ONCE PRN, Starting on Mariza 01/23/21 at 0832, Until Wed01/24/21 at 0434, Per Protocol, Warning Vesicant/Irritant Medication , Routine Given 01/23/2021 8:33 AM EDT 10 mLs lidocaine (Xylocaine) 1% (10 mg/mL) injection 10 mg 10 mg, Subcutaneous, ONCE, 1 dose, On Mariza 01/23/21 at 0745, For use in Interventional Radiology (IR) only for procedure with direct provider supervision and verbal order., Angio/IR (Intra-Procedure), Routine Given 01/23/2021 8:05 AM EDT 10 mg documented in this encounter Care Teams Manager Process Improvement Relationship Specialty Start Date End Date Alfredo, Carroll, DO [address] [place] [address] PCP - General 09/23/11 10/20/22 documented as of this encounter
--- OUTSIDE RECORDS SUMMARY | 2024-04-22 10:53 | XMS_ITS | Encounter Summary ---
Author Organization [facility] [place] [address] Care Team Providers Care Ambulance Driver Name Role Phone Carroll Fuentes Primary Care Provider Reason for Referral * Diagnostic Test (Emergency) - Closed Specialty Diagnoses / Procedures Referred By Contac t Referred To Contact Radiology Diagnoses ESRD (end stage renal disease) Procedures IR Dialysis Access - AV Fistula Evaluations Gaby Mesa MD [facility] [place] [address] [place] [address] Referral ID Status Reason Start Date Expiration Date V isits Requested Visits Authorized [id number] Closed Specialty Service Requested 12/27/2020 06/28/2022 1 1 Reason for Visit * Diagnostic Test (Emergency) - Closed Specialty Diagnoses / Procedures Referred By Shashi ko Referred To Contact Radiology Diagnoses ESRD (end stage renal disease) Procedures IR Dialysis Access - AV Fistula Evaluations Gaby Mesa MD [facility] [place] [address] [place] [address] Referral ID Status Reason Start Date Expiration Date V isits Requested Visits Authorized [id number] Closed Specialty Service Requested 12/27/2020 06/28/2022 1 1 Encounter Details Date Type Department Care Team (Latest Contact Info) Description 01/07/2021 10:27 AM EDT - 01/07/2021 11:59 PM EDT Hospital [place] [address] Gaby Mesa MD Gemery, John M, MD [facility] [place] [address] ESRD (end stage renal disease) Discharge Disposition: [...] Sign Reading Time Taken Comments Blood Pressure 108/84 01/07/2021 1:00 PM EDT Pulse 54 01/07/2021 12:45 PM EDT Temperature 36.4 ??C (97.6 ??F) 01/07/2021 10:52 AM E DT Respiratory Rate 18 01/07/2021 1:00 PM EDT Oxygen Saturation 96% 01/07/2021 1:00 PM EDT Inhaled Oxygen Concentration - - Weight - - Height - - Body Mass Index - - documented in this encounter Discharge Instructions * Discharge Instructions* Carlos Alberto Butler RN - 01/07/2021 12:33 PM EDT [facility] Vascular and Interventional Radiology Discharge Instructions [...] or call 911. Notify your Dialysis Center: ??? If you notice a change in the pulse or thrill in your fistula. ??? If you notice a change in your skin color at or around the fistula. ??? If you notice a change in the circulation below the fistula (i.e., fingers or toes) such as cool and/or pale skin. ??? If you see any redness or swelling. ??? If you develop a fever greater than or equal to 101 degrees Fahrenheit. ??? If you develop shaking chills. ??? If you develop pain around the fistula site. ??? If you have questions about your fistula or dialysis. When to call the Interventional Radiology Department: Please call with any questions or concerns. If it is during regular office hours, please call [phone]. If it is after regular office hours, or on weekends or holidays, please call [phone] and ask to speak to the Office Supervisor senior professional services consultant for Interventional Radiology. You have received medication [...] please contact your M. D. Revised 04/27/19 [facility] Vascular and Interventional Radiology Discharge Instructions for [...] bleeding from the catheter site, you should: ??? Apply firm pressure over the catheter site for 10-15 minutes. ??? Make sure the clamps are closed. ??? Keep the site covered ??? If you are still bleeding after 10 to 15 minutes reapply pressure. If the bleeding persists, have someone drive you to your local Emergency Department or call 911. Phone your doctor or the dialysis staff right away if: ??? If you see any redness, swelling or drainage around the catheter . ??? If you develop shaking chills. ??? If you develop a fever greater than or equal to 101 degrees Fahrenheit . ??? If you develop pain around the catheter site. ??? The catheter breaks or you notice leaking from the catheter. When to call the Interventional Radiology Department: Please call with any questions or concerns. If it is during regular office hours, please call [phone]. If it is after regular office hours, or on weekends or holidays, please call [phone] and ask to speak to the Office Supervisor senior professional services consultant for Interventional Radiology. You have received medication [...] as of this encounter Progress Notes * Carlos Alberto Butler RN - 01/07/2021 11:07 AM EDT [facility] Name: CHRISTY AMBROSE Date of : 1960 AGE: 60 y.o. Address: [address] [place] [id number] (home) Mobile: Telephone Information: Referring Provider: Gaby Mesa REASON FOR VISIT: Order Questions Answers Where will study be performed? [facility] Radiology [120] Laterality Right Is the patient on anticoagulant / antiplatelet therapy ? Aspirin Reason for exam and clinical history: fistulagram for thombmosed SYLVESTER AVG Clinical information / boyce questions: last dialysis was Wednesday12/25/20 Allergies Allergen Reactions ??? Benazepril Hcl ??? [...] ml/min N18.4 ??? 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 detention current use of immunosuppressive drug Z79.899 ??? [...] ??? End stage chronic kidney disease N18.6 Date/Procedure Meds Given/Comments 08/30/18 Tunneled HD Cath Exchange Fentanyl 100mcg IV 11/30/19 RUE Ffistulagram??with multiple PTAs?? Fentanyl??175??mcg IV; Versed 3.5??mg IV (pt awake for the most part, BP sensitive to sedation even with half doses). 12/27/20??Tunneled Line Placement Fentanyl??250??mcg IV, tolerated well 01/07/2021 RUE fistulagram and tunneled line exchange Fentanyl 50 mcg IV Versed 1 mg IV ? 1116 to procedure room 2 via stretcher. Onto table supine. All monitors, O2, safety strap in place.Meds per protocol. Laboratory Results: Lab Results Component Value Date INR 0.9 08/03/2018 Lab Results Component Value Date CREATININE 5.17 (H) 12/14/2018 Lab Results Component Value Date K 4.5 12/14/2018 Lab Results Component Value Date PLATELET 172 12/13/2018 documented in this encounter H&P Notes * James Disla, CATRACHITO - 01/07/2021 10:58 AM EDT INTERVENTIONAL RADIOLOGY FOCUSED H&P: Procedure: The [...] 3: Patient with severe systemic disease Mallampati: III: only the base of the uvula can be seen Confirm NPO status: Yes History of anesthetic complications: No Current medications reviewed: Yes Allergies reviewed: Yes Source Note - Veto Goodman PA - 01/01/2021 7:37 AM EDT Images from the original note were not included. Interventional Radiology Focused Pre-procedure H&P: PCP: Carroll Fuentes DO Referring Provider: Gaby Mesa Planned procedure: Right upper extremity fistulagram Procedure indication: End stage renal disease, malfunctioning dialysis access IR workflow: Procedure request received through Interventional Radiology eDH order queue. Order Questions Answers Where will study be performed? [facility] Radiology [120] Laterality Right Is the patient on anticoagulant / antiplatelet therapy ? Aspirin Reason for exam and clinical history: fistulagram for thombmosed SYLVESTER AVG Clinical information / boyce questions: last dialysis was Wednesday12/25/20 History of present illness: Per Rex note 12/27: Christy Ambrose is a 60 y.o. male who presents to Interventional Radiology to undergo placement of dialysis catheter and subsequent fistulagram in setting of ESRD and non-accessible fistula. ?? This is a patient who underwent creation of right brachioaxillary 4-7 mm graft by Vascular Surgery on 12/13/2018 who dialyzes at [facility]. The clinic contacted IR today to report inability to access the patient's graft, with suspicion of possible thrombosis. Patient to present to IR for dialysis catheter placement until fistulagram can be performed. ?? Multiple prior dialysis catheters in setting of nonfunctional ione access. Prior intervention by IR on 11/30/2019 - ?? 1. ??Right arm brachio-axillary AV graft was thrombosed. ?? 2. ??Mechanical declot, 8mm EMT P of venous anastomosis, 6mm EMT P of arterial anastomosis. ?? 3.?Flow from anastomosis centrally, axilla to??subclavian??vein, via??three channels ?? 4.?3cm moderate to??severe stenosis right??central subclavian and??innominate veins, mild residual stenosis after 18mm EMT P. ?? Medical history notable for hypertension, gout, traumatic brain injury. Remainder of patient's medical and surgical history, allergies, medications, and social/family history obtained below as previously outlined in patient's medical record. IR history: As above. Tunneled catheter placed 12/27: 1. What was thought to be a diminutive right IJV on US turned out to be a neck vein collateral vessel emptying into a anterior mediastinal vein. ?? 2. US guided access of a more laterally located collateral vein. This did communicate with the SVC. ?? 3. Placement of a tunneled hemodialysis catheter via a lateral neck collateral vein as detailed above. The catheter is ready for immediate use. ?? Date/Procedure Meds Given/Comments 08/30/18 Tunneled HD Cath Exchange Fentanyl 100mcg IV 11/30/19 RUE Ffistulagram??with multiple PTAs?? Fentanyl??175??mcg IV; Versed 3.5??mg IV (pt awake for the most part, BP sensitive to sedation even with half doses). 12/27/20??Tunneled Line Placement Fentanyl??250??mcg IV, tolerated well Imaging: Assessment: 60 y.o. male with end stage renal failure and malfunctioned dialysis access presenting to Interventional Radiology for right upper extremity fistulagram. Plan Planned procedure: Right upper extremity fistulagram Labs to be performed day of procedure: No labs Sedation: Moderate (Conscious sedation) Prophylactic antibiotic : None Contrast: Omnipaque Additional medications for procedure: Lidocaine Position: Supine Consent: Pending Labs: Lab Results Component Value Date HGB [...] to Encounter Medication Sig Dispense Refill ??? doxycycline (VIBRAMYCIN) 100 mg Capsule Take 1 capsule by mouth 2 times daily for 10 days. 20 capsule 0 ??? aspirin 81 mg Tablet, Delayed Release [...] ml/min N18.4 ??? 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 detention current use of immunosuppressive drug Z79.899 ??? [...] AV Fistula Evaluations 11/30/2019 Sabrina Velez MD [facility] INTERVENTIONL RAD ??? IR DIALYSIS ACCESS - TUNNELED LINE 07/30/2018 IR Dialysis Access - Tunneled Line 07/30/2018 Walt Lin MD [facility] INTERVENTIONL RAD ??? IR DIALYSIS ACCESS - TUNNELED LINE 08/30/2018 IR Dialysis Access - Tunneled Line 08/30/2018 Erwin Simon, RECOVERY OPERATOR HELPER [facility] INTERVENTIONL RAD ??? IR DIALYSIS ACCESS - TUNNELED LINE 12/27/2020 IR Dialysis Access - Tunneled Line 12/27/2020 Kanu Apple MD [facility] INTERVENTIONL RAD ??? KIDNEY TRANSPLANT KIDNEY TRANSPLANT / RECIPIENT/LT Procedure Date: 11/26/2002 ??? PRO CREAT AV FISTULA, NON-AUTOGENOUS GRAFT Right 12/13/2018 PLACEMENT, AV HEMODIALYSIS GRAFT, SYNTHETIC GRAFT, UPPER EXTREMITY (WRVU 12.03) performed by Mary Garay MD at [facility] MAIN OR ? ? PRO DEBRIDEMENT SUBCUTANEOUS TISSUE 20 SQCM/< Left 02/20/2016 DEBRIDEMENT SKIN AND SUBCU, HEAD/NECK performed by Miguel Angel Moreno MD at [facility] MAIN OR ??? PRO DECOMPRESS FOREARM, BRACH ART EXPLOR Left 04/06/2018 FASCIOTOMY, FOREARM, WITH BRACHIAL ARTERY EXPLORATION (WRVU 8.41) performed by Lida Peter, [facility] [facility] OR ??? PRO DIRECT REPAIR RUPTURED ANEURYSM, AXILLO-BRACHIAL ARM INCIS Left 04/06/2018 @REPAIR, RUPTURED AXILLARY OR BRACHIAL ARTERY ANEURYSM BY ARM INCISION (WRVU *) performed by Lida Peter MD at [facility] MAIN OR ??? PRO EXC PAROTD, TOTAL, UNILAT RAD NECK Left 02/05/2016 @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, TOTAL, WITH UNILATERAL RADICAL NECK DISSECTION performed by Miguel Angel Moreno MD at [facility] OR ??? PRO EXC SKIN MALIG 3.1-4CM FACE, FACIAL Left 02/05/2016 EXC MALIGNANT LESION, 3.1 TO 4.0CM, FACE performed by Miguel Angel Moreno MD at [facility] OR ? ? PRO EXC SKIN MALIG >4CM TRUNK, ARM, LEG 04/19/2012 EXC MALIGNANT LESION, MICHAEL > 4.0CM, TRUNK performed by SABRINA SANCHEZ at [facility] MAIN OR ??? PRO LAP, RADICAL NEPHRECTOMY Left 05/31/2017 @LAPAROSCOPY, RADICAL NEPHRECTOMY (WRVU 25.06) performed by Jax Mills MD at [facility] OR ??? PRO LIGATN ANGIOACCESS AV FISTULA Left 04/19/2018 LIGATION OR BANDING OF HEMODIALYSIS FISTULA OR GRAFT UPPER EXTREMITY (WRVU 6.25) performed by Odalis Elias MD at [facility] MAIN OR ??? PRO NEGATIVE PRESSURE WOUND THERAPY, LESS THAN OR EQUAL TO 50 SQCM Left 04/19/2018 DRESSING CHANGE (VAC ASSISTED) UP TO 50SQ.CM (WRVU 0.55) performed by Odalis Elias MD [facility] OR ??? PRO REBL VES GRAFT, UP EXTREM Left 04/06/2018 REPAIR BLOOD VESSEL WITH GRAFT OTHER THAN VEIN, UPPER EXTREMITY (WRVU 15.83) performed by Lida Peter MD at [facility] OR ??? PRO RELIEVE PRESSURE ON NERVE(S) Left 04/06/2018 (MSURG) CARPAL TUNNEL (WRVU 4.82) performed by Silviano Sparks MD at [facility] OR ??? PRO REPAIR INTERMEDIATE S/A/T/E 2.6-7.5 CM 04/19/2012 REPAIR INTERMEDIATE WOUND, (NO HANDS OR FEET) 2.6 TO 7.5CM, UPPER EXTREMITY performed by SABRINA SANCHEZ at [facility] OR ? ? PRO REPAIR INTERMEDIATE S/A/T/E > 30.0 CM Left 04/14/2018 REPAIR INTERMEDIATE WOUND, (NO HANDS OR FEET) >30.0CM, UPPER EXTREMITY (WRVU 5) performed by Yimi Easton MD at [facility] OR ??? PRO REVISE MEDIAN N/CARPAL TUNNEL SURG Left 04/06/2018 MEDIAN NERVE DECOMPRESSION (CARPAL TUNNEL RELEASE) (WRVU 4.97) performed by Lida Peter MD [facility] OR ? ? PRO SPLIT GRFT TRUNK, ARM, LEG <100SQCM Left 04/26/2018 SPLIT THICK SKIN GRAFT,100 SQ CM OR LESS, ARMS (WRVU 9.9) performed by Silviano Sparks MD at [facility] MAIN OR ? ? PRO SPLIT GRFT, HEAD, FAC, HAND, FEET <100SQCM N/A 02/20/2016 SPLIT THICKNESS SKIN SPLIT GRAFT,100SQ CM OR LESS, NECK performed by Miguel Angel Moreno MD at [facility] MAIN OR ??? PRO SPLIT GRFT, TRUNK, ARM, LEG EA 100SQCM N/A 04/26/2018 EA.ADDITIONAL 100SQ.CM STSG (WRVU 1.72) performed by Silviano Sparks MD at [facility] MAIN OR ??? PRO UPPER GI ENDOSCOPY, BIOPSY N/A 05/13/2017 EGD WITH BIOPSY (WRVU 2.49) performed by Aditya Barrera MD at [facility] ENDOSCOPY ??? PRO VASCULAR SURGERY PROCEDURE UNLIST Left 11/20/2015 LIGATION\REPAIR AV FISTULA performed by Camilo Ireland MD at [facility] MAIN OR ??? PRO VASCULAR SURGERY PROCEDURE UNLIST Left 11/20/2015 EXCISION VEIN FROM HAND performed by Camilo Ireland MD at [facility] MAIN OR ??? US RENAL TRANSPLANT BIOPSY 12/31/2010 ??? US RENAL TRANSPLANT RIGHT Right 06/04/2018 US Renal Transplant Right 06/04/2018 [facility] RAD ULTRASOUND Social history and habits: Social History Tobacco Use ??? Smoking status: Former Smoker Packs/day: 0.25 Years: 1.50 Pack years: 0.37 Types: Cigarettes Quit date: 12/03/2000 Years since quittin.0 ??? Smokeless tobacco: Former User Quit date: [...] in interventional radiology the day of procedure) 01/01/2021 PANCHITO Lipscomb documented in this encounter Procedure Notes * Sabrina Velez MD - 01/07/2021 12:51 PM EDT Images from the original note were not included. IR PROCEDURE NOTE Procedure: Unsuccessful right arm hemodialysis graft declot, exchange of right neck vein (non-IJ) tunneled HD catheter. Indication for Procedure: Per PANCHITO Ceron, Christy Ginna Delunaon??is a 60 y.o.??male??who presents to Interventional Radiology to undergo ...fistulagram in setting of ESRD and??non-accessible??fistula. ?? This is a patient who underwent creation of??right brachioaxillary 4-7 mm graft?by Vascular Surgery on 12/13/2018??who dialyzes at??[facility].??The clinic contacted IR ...to report inability to access the patient's graft, with suspicion of possible thrombosis. ... ?? Multiple prior dialysis catheters in setting of nonfunctional ione access. Prior intervention by IR on 11/30/2019 -? 1. ??Right arm brachio-axillary AV graft was thrombosed. ?? 2. ??Mechanical declot, 8mm EMT P of venous anastomosis, 6mm EMT P of arterial anastomosis. ?? 3.?Flow from anastomosis centrally, axilla to??subclavian??vein, via??three channels ?? 4.?3cm moderate to??severe stenosis right??central subclavian and??innominate veins, mild residual stenosis after 18mm EMT P. ?? Medical history notable for??hypertension, gout, traumatic brain injury. ... ?? IR history: As above. Tunneled catheter placed 12/27: ?? 1. What was thought to be a diminutive right IJV on US turned out to be a neck vein collateral vessel emptying into a anterior mediastinal vein. ?? 2. US guided access of a more laterally located collateral vein. This did communicate with the SVC. ?? 3. Placement of a tunneled hemodialysis catheter via a lateral neck collateral vein as detailed above. The catheter is ready for immediate use. ?? Mr. Ambrose has had dialysis via the HD catheter placed on 12/27/2020 with, by report, function less than optimal. Planning catheter exchange if graft flow cannot be restored. Procedure events and findings: Patient was positioned supine on procedure table. Right arm was prepped and draped, maximum sterile barrier technique was used throughout. Local anesthesia provided with 1% lidocaine. Due to the painful nature of the procedure, patient received split doses of intravenous fentanyl and versed from the IR nurse while pulse, pressure, and oxygen saturation were continuously monitored. Graft was accessed with micropuncture technique under U/S guidance and a 4Fr sheath placed facing centrally. 4Fr sheath exchanged over guide wire for a 6Fr sheath. A guide wire and angled catheter were placed and directed centrally. Venography was performed with the catheter tip in the axillary vein showing occlusion of the central right subclavian vein and innominate vein. Flow centrally was viamultiple collaterals. Catheter was withdrawn with contrast injection showing focal moderate stenosis at the vein graft anastomosis. An angled glide wire and angled catheter were placed and directed under fluoro across the subclavian and innominate vein occlusion. [place] wire exchanged for an Amplatz wire. The 6Fr sheath was exchanged for an 8Fr sheath. A 16mm balloon catheter was placed and used to dilate the subclavian and innominate vein occlusions. The angled catheter was then replaced in the subclavian vein and venography showed no flow across the treated segment. Not being able to establish outflow elected not to attempt graft declot. Catheter and sheath removed, hemostasis obtained with manual compression. Right neck base and upper chest with existing HD catheter prepped and draped, maximum sterile barrier technique was used throughout. Local anesthesia provided with 1% lidocaine. Two stiff glide wires were passed through the existing HD and directed into IVC with fluoroscopic guidance. Existing catheter removed over wires. A new 28cm HD catheter was placed over guide wires with tip positioned in RA under fluoroscopic guidance. Red port did not aspirate well with catheter tip low in RA. Catheter was withdrawn until the red port did aspirate well. Tip then in mid to upper RA. Catheter was then anchored with suture. Medications: Fentanyl 50 mcg IV, Versed 1mg IV, 1% Lidocaine <10ccs subcutaneous. Est Blood Loss: <5cc. Complications: No immediate. Impression: 1. Thrombosed right arm AV hemodialysis graft. 2. 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 3. 16 mm EMT P of right central subclavian and innominate veins did not restore a useful flow channel, absent viable outflow elected not to attempt graft declot. 4. Exchange of right neck vein (not IJ) tunneled 28 cm hemodialysis catheter. Tip in right atrium, catheter ready for use. Resident/Fellow: None. Attending: Dr. Rosie Suarez performed these procedures. I was present during the intraservice time as documented by the IR Nurse. documented in this encounter Plan of Treatment Not on file documented as of this encounter Procedures Procedure Name Priority Date/Time Associated Diagnosis Comments IR DIALYSIS ACCESS - AV FISTULA EVALUATIONS STAT 01/07/2021 12:57 PM EDT ESRD (end stage renal disease) documented in this encounter Results * IR Dialysis Access - AV Fistula Evaluations (01/07/2021 12:57 PM EDT) Anatomical Region Laterality Modality Abdomen X-Ray Angiograph y Narrative 01/07/2021 4:39 PM EDT IR PROCEDURE NOTE ?? Procedure: Unsuccessful right arm hemodialysis graft declot, exchange of right neck vein (non-IJ) ??tunneled HD catheter. ?? Indication for Procedure: Per PANCHITO Ceron, Christy Ginna Ambrose??is a 60 y.o.??male??who presents to Interventional Radiology to undergo ...fistulagram in setting of ESRD and??non-accessible??fistula. ?? This is a patient who underwent creation of??right brachioaxillary 4-7 mm graft?by Vascular Surgery on 12/13/2018??who dialyzes at??[facility].??The clinic contacted IR ...to report inability to access the patient's graft, with suspicion of possible thrombosis. ... ?? Multiple prior dialysis catheters in setting of nonfunctional ione access. Prior intervention by IR on 11/30/2019 -? 1. ??Right arm brachio-axillary AV graft was thrombosed. ?? 2. ??Mechanical declot, 8mm EMT P of venous anastomosis, 6mm EMT P of arterial anastomosis. ?? 3.?Flow from anastomosis centrally, axilla to??subclavian??vein, via??three channels ?? 4.?3cm moderate to??severe stenosis right??central subclavian and??innominate veins, mild residual stenosis after 18mm EMT P. ?? Medical history notable for??hypertension, gout, traumatic brain injury. ... ?? IR history:?As above.??Tunneled catheter placed 12/27: ?? 1. What was thought to be a diminutive right IJV on US turned out to be a neck vein collateral vessel emptying into a anterior mediastinal vein. ?? 2. US guided access of a more laterally located collateral vein. This did communicate with the SVC. ?? 3. Placement of a tunneled hemodialysis catheter via a lateral neck collateral vein as detailed above. The catheter is ready for immediate use. ?? Mr. Ambrose has had dialysis via the HD catheter placed on 12/27/2020 with, by report, function less than optimal. Planning catheter exchange if graft flow cannot be restored. ?? Procedure events and findings: Patient was positioned supine on procedure table. ??Right arm was prepped and draped, maximum sterile barrier technique was used throughout. ??Local anesthesia provided with 1% lidocaine. ??Due to the painful nature of the procedure, patient received split doses of intravenous fentanyl and versed from the IR nurse while pulse, pressure, and oxygen saturation were continuously monitored. ?? Graft was accessed with micropuncture technique under U/S guidance and a 4Fr sheath placed facing centrally. ??4Fr sheath exchanged over guide wire for a 6Fr sheath. ??A guide wire and angled catheter were placed and directed centrally. ??Venography was performed with the catheter tip in the axillary vein showing occlusion of the central right subclavian vein and innominate vein. ??Flow centrally was via multiple collaterals. ??Catheter was withdrawn with contrast injection showing focal moderate stenosis at the vein graft anastomosis. ?? An angled glide wire and angled catheter were placed and directed under fluoro across the subclavian and innominate vein occlusion. ??[place] Blanca wire exchanged for an Amplatz wire. ??The 6Fr sheath was exchanged for an 8Fr sheath. ??A 16mm balloon catheter was placed and used to dilate the subclavian and innominate vein occlusions. ??The angled catheter was then replaced in the subclavian vein and venography showed no flow across the treated segment. ??Not being able to establish outflow elected not to attempt graft declot. ??Catheter and sheath removed, hemostasis obtained with manual compression. ?? Right neck base and upper chest with existing HD catheter prepped and draped, maximum sterile barrier technique was used throughout. Local anesthesia provided with 1% lidocaine. Two stiff glide wires were passed through the existing HD and directed into IVC with fluoroscopic guidance. ??Existing catheter removed over wires. ??A new 28cm HD catheter was placed over guide wires with tip positioned in RA under fluoroscopic guidance. ??Red port did not aspirate well with catheter tip low in RA. ??Catheter was withdrawn until the red port did aspirate well. ??Tip then in mid to upper RA. Catheter was then anchored with suture. ?? Medications: Fentanyl 50 mcg IV, Versed 1mg IV, 1% Lidocaine <10ccs subcutaneous. ?? Est Blood Loss: <5cc. ?? Complications: ??No immediate. ?? Impression: ?? 1. ??Thrombosed right arm AV hemodialysis graft. ?? 2. 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 ?? 3. ??16 mm EMT P of right central subclavian and innominate veins did not restore a useful flow channel, absent viable outflow elected not to attempt graft declot. ? 4. ??Exchange of right neck vein (not IJ) tunneled 28 cm hemodialysis catheter. ??Tip in right atrium, catheter ready for use. ? Resident/Fellow: ??None. ?? Attending: I, Dr. Velez performed these procedures. ??I was present during the intraservice time as documented by the IR Nurse.? Gaby Mesa MD [facility] [place] documented in this encounter Visit Diagnoses Diagnosis ESRD (end stage renal disease) End stage renal disease documented in this encounter Administered Medications Inactive Administered Medications - up to 3 most recent administrations Medication Order MAR Action Action Date Dose Rate Site fentaNYL (pf) (50 mcg/mL) multi-dose injection 25-50 mcg 25-50 mcg, Intravenous, EVERY 3 MIN PRN, Starting on Wed01/07/21 at 1106, Until Wed01/08/21 at 0434, Pain, per unit protocol, - Start dose [...] order., Angio/IR (Day of Procedure), Routine Given 01/07/2021 12:02 PM EDT 25 mcg Given 01/07/2021 11:27 AM EDT 25 mcg iohexoL (Omnipaque) (350 mg/mL) injection solution 1-400 mL 1-400 mL, Intravenous, ONCE, 1 dose, On Wed01/07/21 at 1130, For intra-procedural use by proceduralist., Angio/IR (Day of Procedure), Routine Given 01/07/2021 12:01 PM EDT 20 mLs lidocaine (Xylocaine) 1% (10 mg/mL) injection 10 mg 10 mg, Subcutaneous, ONCE, 1 dose, On Wed01/07/21 at 1130, For use in Interventional Radiology (IR) only for procedure with direct provider supervision and verbal order., Angio/IR (Day of Procedure), Routine Given 01/07/2021 11:3 8 AM EDT 10 mg midazolam (pf) (Versed) (1 mg/mL) multi-dose injection 0.5-1 mg 0.5-1 mg, Intravenous, EVERY 3 MIN PRN, Starting on Wed01/07/21 at 1106, Until Wed01/08/21 at 0434, Sleep, - Start dose; 1 mg (Reduce [...] order., Angio/IR (Day of Procedure), Routine Given 01/07/2021 12:02 PM EDT 0.5 mg Given 01/07/2021 11:27 AM EDT 0.5 mg sodium chloride 0.9 % (flush) flush 5 mL 5 mL, Intravenous, 2 TIMES DAILY, First dose on Wed01/07/21 at 1130, Until Discontinued, Angio/IR (Day of Procedure), Routine Given 01/07/2021 11:30 AM EDT 5 mLs documented in this encounter Care Teams Ambulance Driver Relationship Specialty Start Date End Date Carroll Fuentes DO [address] [place] [address] PCP - General 09/23/11 10/20/22 documented as of this encounter
--- OUTSIDE RECORDS SUMMARY | 2024-04-22 10:53 | XMS_ITS | Encounter Summary ---
Author Organization [facility] [place] [address] Care Team Providers Care Child Day Care Teacher Name Role Phone AlfredoCarroll geiger Primary Care Provider [phone] Reason for Visit * Auth/Cert Specialty Diagnoses / Procedures Referred By Shashi ko Referred To Contact Diagnoses ESRD (end stage renal disease) on dialysis ESRD Procedures PRO ANASTOMOSIS, AV, ANY SITE PRO PHLEB VEINS - EXTREM - TO 20 AV FISTULA CREATION, DIRECT HEMODIALYSIS, ANY SITE, EG MADYSON FISTULA LOWER EXTREMITY (WRVU 11.9) STAB PHLEBECTOMY LISBET VEINS 1 EXTREMITY 10-20 INCISIONS (WRVU 7.71) Referral ID Status Reason Start Date Expiration Date Visits Re quested Visits Authorized [id number] 1 1 Encounter Details Date Type Department Care Team (Late st Contact Info) Description 05/22/2021 12:11 PM EST Anesthesia [place] [id number] Padmini Murdock MD [facility] [place] [address] Karin Keating CRNA [facility] [place] [address] Anesthesia Record Procedure Summary Procedure Name Responsible Anesthesiologist Anesthesia Start Time Anesthesia Stop Time AV FISTULA CREATION, DIRECT HEMODIALYSIS, ANY SITE, EG MADYSON FISTULA [facility] (Right: Leg) Padmini Murdock MD 05/22/21 1211 05/22/21 1517 Events Date Time Event Comment 05/22/2021 1053 1211 AN Verify 1211 Start 1211 An Start Data 1218 An Induction 1224 An Intubation 1225 Anesthesia Ready 1230 ABG Data Venous Blood Ga s result: pH 7.36 pCO2 57 pO2 37.6 %O2 Sat 64 FiO2 HCO3 6.4 BE 6.4 Hb 12.3 K 6.68 Glucose 90 Lactate 1.41 Na 136 Ca 1.07 1252 Procedure Start 1330 Break/Relief In I assumed ca re for Break Relief before which we: 1. Identified the patient 2. Identified the responsible provider(s) 3. Reviewed the pertinent medical history 4. Discussed the surgical plan and course 5. Reviewed intra-op anesthesia management and issues during anesthesia 6. Set expectations for the relief (and/or post-procedure) period 7. Allowed opportunity for questions and acknowledgement of understanding Charlette Machado CRNA 1335 ABG Data Arterial Blood Gas result: pH 7.45 pCO2 42.4 pO2 195 %O2 Sat 98 FiO2 61 HCO3 28 BE 4.5 Hb 10.6 K 7.09 Glucose 99 Lactate 0.72 Na 134 Ca 1.03 1350 Heparin 1400 Break/Relief Out 1431 Protamine 1448 ABG Data Arterial Blood Gas result: pH 7.489 pCO2 34.4 pO2 173.3 %O2 Sat 100 FiO2 60 HCO3 25.6 BE 2.2 Hb 10.5 K 6.75 Glucose 146 Lactate 0.79 1506 Extubation/LMA Out 1509 an stop data 1513 Recovery or ICU Handoff Randa ent care was transferred to the destination unit staff after review of the patient's medical history, current anesthetic/surgical status and plan, according to the Provider Handoff Checklist. 1517 Stop Meds Name Total Propofol 100 mg fentaNYL 100 mcg Ondansetron 4 mg ePHEDrine 50 mg ceFAZolin (Ancef) 2 g in dextrose 5% 100 mL infusion 1 g cefTRIAXone 2 g Dexamethasone 4 mg Heparin 8,000 Units Dextrose 50 % 37 mL Insulin Regular Human 7 Units Calcium Chloride 600 mg Glycopyrrolate 0.2 mg Protamine 30 mg Albuterol Inhaler 6 puff Sodium Chloride 0.9% 500 mL * Agents Name O2 Air N2O Sevoflurane (et) * Blood No blood administrations on file. Lines, Drains, and Airways Type Details Placement Removal Hemodialysis AV Access Device - Single Lumen 12/13/18; graft; upper arm, right; hemodialysis; Placed in OR, present on arrival to PACU 12/13 12:01; 11/05/21; 1436 12/13/18 0000 by Patty Vargas RN 11/05/21 1436 by Wilfredo Cuenca RN Incision 12/27/20; 1637; Righ t; neck; horizontal; Tunneled HD line placement with Dr. Apple under fluoro; LDA not present upon assessment; 11/05/21 12/27/20 1637 by Dania Swartz RN 11/05/21 0000 by Wilfredo Cuenca RN (RETIRED) Peripheral IV Line - Single Lumen 03/20/21; 0707; dorsal arch vein (top of hand), left; [id number]-dgn-sassku catheter system; Anatomical Landmarks; 22 gauge; LDA not present upon assessment; 05/22/21; 1241 03/20/21 0707 by Carlos Alberto Butler RN 05/22/21 1241 by Karin Keating CRNA (RETIRED) Percutaneous Central Line - Double Lumen 03/20/21; 0814; internal jugular vein, right; dialysis/apheresis catheter; other (see comments) (14.5Fr); Dr Harmon / Jag Goodman PA; 14.5Fr x 28cm HemoFlow Ref# [id number] Lot# [id number] expires 08/17/2023; 11/05/21 (LDA not present on assessment) 03/20/21 0814 by Nara Velazco RN 11/05/21 0000 by Wilfredo Cuenca RN (RETIRED) Peripheral IV Line - Single Lumen 05/22/21; 1211; median cubital vein (antecubital fossa), right; [id number]-[id number] catheter system; Anatomical Landmarks; 20 gauge; Padmini Murdock MD; catheter/device intact, removed per policy/procedure; 05/23/21; 1518 05/22/21 1211 by Karin Keating CRNA 05/23/21 1518 by Anabella De Los Santos RN Supraglottic Mask Ventilation: Ea sy (1); LMA Type: iGel; LMA Size: 4; Inserted by: Karin Keating CRNA; Removal Date: 05/22/21; Removal Time: 1506 05/22/21 1224 by Karin Keating CRNA 05/22/21 1506 by Karin Keating CRNA (RETIRED) Peripheral IV Line - Single Lumen 05/22/21; 1228; median cubital vein (antecubital fossa), left; [id number] catheter system; Ultrasound Guidance; Yes - US guidance used but Image NOT saved; 20 gauge; Odalis Elias MD; catheter/device intact, removed per policy/procedure; 05/23/21; 1518 05/22/21 1228 by Karin Keating CRNA 05/23/21 1518 by Anabella De Los Santos RN documented in this encounter Social History Tobacco Use Types Packs/Day [...] on file documented as of this encounter OR Notes * Anesthesia Postprocedure Evaluation - Padmini Murdock MD - 05/22/2021 3:40 PM EST Department of Anesthesiology Post-procedure Note Patient: Adama Ram Procedure Summary Date: 05/22/21 Room / Location: [facility] OR [address] [place] [address] MAIN OR Anesthesia Start: 1211 Anesthesia Stop: 1516 Procedures: AV FISTULA CREATION, DIRECT HEMODIALYSIS, ANY SITE, EG MADYSON FISTULA LOWER EXTREMITY (WRVU 11.9) (Right Leg) STAB PHLEBECTOMY LISBET VEINS 1 EXTREMITY 10-20 INCISIONS (WRVU 7.71) (Right Leg) Diagnosis: ESRD (end stage renal disease) Pre-op testing (ESRD) Surgeons: Odalis Elias MD Responsible Provider: Padmini Murdock MD Anesthesia Type: general ASA Status: 3 All Anesthesia Providers: Anesthesiologist: Padmini Murdock MD BENCH TOOL MAKER: Karin Keating CRNA Vitals Value Taken Time BP 130/87 05/22/21 1530 Temp Pulse 64 05/22/21 1539 Resp 20 05/22/21 1539 SpO2 95 % 05/22/21 1539 Pain Level Vitals shown include unvalidated device data. Patient Location: PACU/[facility] Level of Consciousness: Awake and Alert Pain Management: Satisfactory Analgesia PONV: None Cardiovascular Status: At Baseline and Hemodynamically Stable Respiratory Status: At Baseline and Room Air Postoperative Fluid Status: Intravascular EUvolemia Possible Anesthetic Complications: NONE apparent at time of evaluation Final Primary Anesthesia Type: General (The anesthetic type performed was the same as planned.) Comments: Sitting up in bed in PACU, awake and conversant, states he feels well without complaint. Hyperkalemia noted on intraop labs (despite reported HD yesterday). Hemodynamically stable without arrythmia. Treated with insulin/glucose/albuterol. Plan for nephrology eval for possible dialysis this afternoon. PADMINI MURDOCK MD * Anesthesia Preprocedure Evaluation - Padmini Murdock MD - 05/22/2021 10:50 AM EST Pre-Anesthesia Evaluation for: Adama Ram a 60 y.o. male. Procedure(s): AV FISTULA CREATION, DIRECT HEMODIALYSIS, ANY SITE, EG MADYSON FISTULA LOWER EXTREMITY (WRVU 11.9) STAB PHLEBECTOMY LISBET VEINS 1 EXTREMITY 10-20 INCISIONS (WRVU 7.71) Patient Active Problem List Diagnosis ??? End stage chronic kidney disease ??? ESRD (end stage renal disease) ??? Acute renal failure ??? Failed kidney transplant ??? CKD (chronic kidney disease) stage 5, GFR less than 15 ml/min ??? Hypertension secondary to other renal disorders ??? Renal osteodystrophy ??? RTA (renal tubular acidosis) ??? SDH (subdural hematoma) ??? Anemia of chronic renal failure ??? Subarachnoid hemorrhage ??? Surgery follow-up ??? Primary papillary carcinoma of left kidney ??? Gastrointestinal hemorrhage ??? Bradycardia ??? Left renal mass ??? Weight loss ??? CKD (chronic kidney disease) stage 4, GFR 15-29 ml/min ??? 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 residential current use of immunosuppressive drug ??? H/O kidney transplant ??? Encounter for long-term (current) use of other medications ??? Aftercare following organ transplant ??? Squamous cell carcinoma of skin of other parts of face ??? Atopic rhinitis ??? Injury of head ??? Non-neoplastic nevus ??? Varicose veins of lower extremities ??? Rosacea ??? Acne rosacea ??? Colon polyp ??? BCC (basal cell carcinoma of skin) ??? 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 Gout ??? Hypertension ??? Left leg DVT ??? Epilepsy Past Medical History: Diagnosis Date ??? BP [...] AV Fistula Evaluations 11/30/2019 Sabrina Velez MD [facility] INTERVENTIONL RAD ??? IR DIALYSIS ACCESS - AV FISTULA EVALUATIONS 01/07/2021 IR Dialysis Access - AV Fistula Evaluations 01/07/2021 Sabrina Velez MD [facility] INTERVENTIONL RAD ??? IR DIALYSIS ACCESS - TUNNELED LINE 07/30/2018 IR Dialysis Access - Tunneled Line 07/30/2018 Walt Lin MD [facility] INTERVENTIONL RAD ??? IR DIALYSIS ACCESS - TUNNELED LINE 08/30/2018 IR Dialysis Access - Tunneled Line 08/30/2018 Erwin Simon APRN [facility] INTERVENTIONL RAD ??? IR DIALYSIS ACCESS - TUNNELED LINE 12/27/2020 IR Dialysis Access - Tunneled Line 12/27/2020 Kanu Apple MD [facility] INTERVENTIONL RAD ??? IR DIALYSIS ACCESS - TUNNELED LINE 01/23/2021 IR Dialysis Access - Tunneled Line 01/23/2021 Kanu Apple MD [facility] INTERVENTIONL RAD ??? IR DIALYSIS ACCESS - TUNNELED LINE 03/20/2021 IR Dialysis Access - Tunneled Line 03/20/2021 Tab Harmon MD [facility] INTERVENTIONL RAD ??? KIDNEY TRANSPLANT KIDNEY TRANSPLANT / RECIPIENT/LT Procedure Date: 11/26/2002 ??? PRO CREAT AV FISTULA, NON-AUTOGENOUS GRAFT Right 12/13/2018 PLACEMENT, AV HEMODIALYSIS GRAFT, SYNTHETIC GRAFT, UPPER EXTREMITY (WRVU 12.03) performed by Mary Garay MD at [facility] OR ??? PRO CREAT AV FISTULA, NON-AUTOGENOUS GRAFT Left 04/03/2021 PLACEMENT, AV HEMODIALYSIS GRAFT, SYNTHETIC GRAFT, UPPER EXTREMITY (WRVU 12.03) performed by Odalis Elias MD at [facility] OR ? ? PRO DEBRIDEMENT SUBCUTANEOUS TISSUE 20 SQCM/< Left 02/20/2016 DEBRIDEMENT SKIN AND SUBCU, HEAD/NECK performed by Miguel Angel Moreno MD at [facility] OR ??? PRO DECOMPRESS FOREARM, BRACH ART EXPLOR Left 04/06/2018 FASCIOTOMY, FOREARM, WITH BRACHIAL ARTERY EXPLORATION (WRVU 8.41) performed by Lida Peter MDat [facility] OR ??? PRO DIRECT REPAIR RUPTURED ANEURYSM, AXILLO-BRACHIAL ARM INCIS Left 04/06/2018 @REPAIR, RUPTURED AXILLARY OR BRACHIAL ARTERY ANEURYSM BY ARM INCISION (WRVU *) performed by Lida Peter MD at [facility] OR ??? PRO EXC PAROTD, TOTAL, UNILAT RAD NECK Left 02/05/2016 @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, TOTAL, WITH UNILATERAL RADICAL NECK DISSECTION performed by Miguel Angel Moreno MD at [facility] OR ??? PRO EXC SKIN MALIG 3.1-4CM FACE, FACIAL Left 02/05/2016 EXC MALIGNANT LESION, 3.1 TO 4.0CM, FACE performed by Miguel Angel Moreno MD at [facility] OR ? ? PRO EXC SKIN MALIG >4CM TRUNK, ARM, LEG 04/19/2012 EXC MALIGNANT LESION, MICHAEL > 4.0CM, TRUNK performed by SABRINA SANCHEZ at [facility] OR ??? PRO LAP, RADICAL NEPHRECTOMY Left 05/31/2017 @LAPAROSCOPY, RADICAL NEPHRECTOMY (WRVU 25.06) performed by Jax Mills MD at [facility] MAIN OR ??? PRO LIGATN ANGIOACCESS AV FISTULA Left 04/19/2018 LIGATION OR BANDING OF HEMODIALYSIS FISTULA OR GRAFT UPPER EXTREMITY (WRVU 6.25) performed by Odalis Elias MD at [facility] MAIN OR ??? PRO NEGATIVE PRESSURE WOUND THERAPY, LESS THAN OR EQUAL TO 50 SQCM Left 04/19/2018 DRESSING CHANGE (VAC ASSISTED) UP TO 50SQ.CM (WRVU 0.55) performed by Odalis Elias MD [facility] OR ??? PRO REBL VES GRAFT, UP EXTREM Left 04/06/2018 REPAIR BLOOD VESSEL WITH GRAFT OTHER THAN VEIN, UPPER EXTREMITY (WRVU 15.83) performed by Lida Peter MD at [facility] MAIN OR ??? PRO RELIEVE PRESSURE ON NERVE(S) Left 04/06/2018 (MSURG) CARPAL TUNNEL (WRVU 4.82) performed by Silviano Sparks MD at [facility] MAIN OR ??? PRO REPAIR INTERMEDIATE S/A/T/E 2.6-7.5 CM 04/19/2012 REPAIR INTERMEDIATE WOUND, (NO HANDS OR FEET) 2.6 TO 7.5CM, UPPER EXTREMITY performed by SABRINA SANCHEZ at [facility] OR ? ? PRO REPAIR INTERMEDIATE S/A/T/E > 30.0 CM Left 04/14/2018 REPAIR INTERMEDIATE WOUND, (NO HANDS OR FEET) >30.0CM, UPPER EXTREMITY (WRVU 5) performed by Yimi Easton MD at [facility] MAIN OR ??? PRO REVISE MEDIAN N/CARPAL TUNNEL SURG Left 04/06/2018 MEDIAN NERVE DECOMPRESSION (CARPAL TUNNEL RELEASE) (WRVU 4.97) performed by Lida Peter MD [facility] OR ? ? PRO SPLIT GRFT TRUNK, ARM, LEG <100SQCM Left 04/26/2018 SPLIT THICK SKIN GRAFT,100 SQ CM OR LESS, ARMS (WRVU 9.9) performed by Silviano Sparks MD at [facility] MAIN OR ? ? PRO SPLIT GRFT, HEAD, FAC, HAND, FEET <100SQCM N/A 02/20/2016 SPLIT THICKNESS SKIN SPLIT GRAFT,100SQ CM OR LESS, NECK performed by Miguel Angel Moreno MD at [facility] MAIN OR ??? PRO SPLIT GRFT, TRUNK, ARM, LEG EA 100SQCM N/A 04/26/2018 EA.ADDITIONAL 100SQ.CM STSG (WRVU 1.72) performed by Silviano Sparks MD at [facility] MAIN OR ??? PRO UPPER GI ENDOSCOPY, BIOPSY N/A 05/13/2017 EGD WITH BIOPSY (WRVU 2.49) performed by Aditya Barrera MD at [facility] ENDOSCOPY ??? PRO VASCULAR SURGERY PROCEDURE UNLIST Left 11/20/2015 LIGATION\REPAIR AV FISTULA performed by Camilo Ireland MD at [facility] MAIN OR ??? PRO VASCULAR SURGERY PROCEDURE UNLIST Left 11/20/2015 EXCISION VEIN FROM HAND performed by Camilo Ireland MD at [facility] MAIN OR ??? US RENAL TRANSPLANT BIOPSY 12/31/2010 ??? US RENAL TRANSPLANT RIGHT Right 06/04/2018 US Renal Transplant Right 06/04/2018 [facility] RAD ULTRASOUND Social History Tobacco Use ??? Smoking status: Former Smoker Packs/day: 0.25 Years: 1.50 Pack years: 0.37 Types: Cigarettes Quit date: 12/03/2000 Years since quittin.4 ??? Smokeless tobacco: Former User Quit date: 04/14/2001 Substance Use Topics ??? Alcohol use: No Social History Substance and Sexual Activity Drug Use No ??? Types: Marijuana Comment: havent in /1995 Allergies Allergen Reactions ??? Benazepril Hcl ??? Codeine Other (See Comments) Patient does not know reaction ??? Hydrochlorothiazide ??? Pollen Extracts Sneezing/runny nose Medications: MAR and/or home medications have been reviewed. Physical Exam: Preprocedure Vitals Current as of 05/22/21 1050 BP: 138/88 Pulse: 52 Resp: 16 SpO2: 98 Temp: 36.6 ??C (97.9 ??F) Height: 177.8 cm (5' 10) (05/22/21) Weight: 95.3 kg (210 lb) (05/22/21) BMI: 30.13 IBW: 73 kg (160 lb 15 oz) Last edited 05/22/21 1041 by KK Airway Assessment: Mallampati: II TM distance: >3 FB Neck ROM: full Cardiovascular Assessment: system normal Pulmonary Assessment: unlabored breathing Dental Assessment: (+) upper dentures Misc Assessment: IV access: Peripheral line Last Filed Perioperative Cognitive Screening None Anesthesia Plan: ASA 3 general, with a(n) intravenous induction 60 yo nonsmoker with ESRD on HD via right IJ tunnelled catheter s/p multiple prior access procedures (most recent 04/03 on left UE now thrombosed) presents today for right UE AVF creation. Discussed risks/benefits GA/LMA. Informed Consent: Anesthetic plan and risks discussed with patient. Use of blood products discussed with patient who. Plan discussed with BENCH TOOL MAKER. Anesthesia Screening documented in this encounter Plan of Treatment Not on file documented as of this encounter Visit Diagnoses Not on filedocumented in this encounter Administered Medications Inactive Administered Medications - up to 3 most recent administrations Medication Order MAR Action Action Date Dose Rate Site albuteroL 90 mcg/actuation inhaler Inhalation, PRN, Starting on Mariza 05/22/21 at 1448, Until Mariza 05/22/21 at 1519, Anesthesia Intra-op, Routine Given 05/22/2021 2:48 PM EST 6 puffs calcium chloride 10% (100 mg/mL) injection Intravenous, PRN, Starting on Mariza 05/22/21 at 1410, Until Mariza 05/22/21 at 1519, Anesthesia Intra-op, Routine Given 05/22/2021 2:50 PM EST 300 mg Given 05/22/2021 2:10 PM EST 300 mg ceFAZolin (Ancef) 2 g in dextrose 5% 100 mL infusion 2 g, Intravenous, POSTMASTER RELIEF TO O.R., 1 dose, On Mariza 05/22/21 at 1045, Administer over 30 Minutes, Redose after 4 hours., Day of Surgery (Day of Procedure), Indication for (Active or Suspected): Prophylaxis Given 05/22/2021 12:29 PM EST 1 g cefTRIAXone (Rocephin) injection Intravenous, PRN, Starting on Mariza 05/22/21 at 1252, Until Mariza 05/22/21 at 1519, Anesthesia Intra-op, Routine Given 05/22/2021 12:49 PM EST 2 g dexamethasone (Decadron) injection Intravenous, PRN, Starting on Mariza 05/22/21 at 1253, Until Mariza 05/22/21 at 1519, Anesthesia Intra-op, Routine Given 05/22/2021 12:53 PM EST 4 mg dextrose 50% intravenous solution Intravenous, PRN, Starting on Mariza 05/22/21 at 1410, Until Mariza 05/22/21 at 1519, Anesthesia Intra-op, Routine Given 05/22/2021 2:50 PM EST 12 mLs Given 05/22/2021 2:10 PM EST 25 mLs ePHEDrine sulfate (5 mg/mL) multi-dose injection Intravenous, PRN, Starting on Mariza 05/22/21 at 1312, Until Mariza 05/22/21 at 1519, Anesthesia Intra-op, Routine Given 05/22/2021 2:19 PM EST 10 mg Given 05/22/2021 1:55 PM EST 10 mg Given 05/22/2021 1:50 PM EST 10 mg fentaNYL (pf) (50 mcg/mL) multi-dose injection Intravenous, PRN, Starting on Mariza 05/22/21 at 1220, Until Mariza 05/22/21 at 1519, Anesthesia Intra-op, Routine Given 05/22/2021 1:46 PM EST 25 mcg Given 05/22/2021 1:40 PM EST 25 mcg Given 05/22/2021 12:58 PM EST 25 mcg glycopyrrolate (Robinul) (0.2 mg/mL) multi-dose injection Intravenous, PRN, Starting on Mariza 05/22/21 at 1415, Until Mariza 05/22/21 at 1519, Anesthesia Intra-op, Routine Given 05/22/2021 2:17 PM EST 0.1 mg Given 05/22/2021 2:15 PM EST 0.1 mg heparin (porcine) (1,000 units/mL) injection Intravenous, PRN, Starting on Mariza 05/22/21 at 1350, Until Mariza 05/22/21 at 1519, Anesthesia Intra-op, Routine Given 05/22/2021 1:50 PM EST 8,000 Uni ts insulin regular (HumuLIN R,NovoLIN R) (100 unit/mL) injection vial Intravenous, PRN, Starting on Mariza 05/22/21 at 1410, Until Mariza 05/22/21 at 1519, Anesthesia Intra-op, Routine Given 05/22/2021 2:50 PM EST 2 Units Given 05/22/2021 2:10 PM EST 5 Units ondansetron (pf) (Zofran) (2 mg/mL) injection Intravenous, PRN, Starting on Mariza 05/22/21 at 1453, Until Mariza 05/22/21 at 1519, Anesthesia Intra-op, Routine Given 05/22/2021 2:53 PM EST 4 mg propofoL (Diprivan) 10 mg/mL bolus injection (Anesthesia) Intravenous, PRN, Starting on Mariza 05/22/21 at 1346, Until Mariza 05/22/21 at 1519, Anesthesia Intra-op Given 05/22/2021 1:46 PM EST 100 mg protamine (10 mg/mL) injection Intravenous, PRN, Starting on Mariza 05/22/21 at 1431, Until Mariza 05/22/21 at 1519, Anesthesia Intra-op, Routine Given 05/22/2021 2:31 PM EST 30 mg sodium chloride 0.9% infusion Intravenous, CONTINUOUS PRN, Starting on Mariza 05/22/21 at 1211, Until Mariza 05/22/21 at 1519, Anesthesia Intra-op New Bag 05/22/2021 12:11 PM EST documented in this encounter Care Teams Child Day Care Teacher Relationship Specialty Start Date End Date Carroll Fuentes DO [address] [place] [address] PCP - General 09/23/11 10/20/22 documented as of this encounter
--- OUTSIDE RECORDS SUMMARY | 2024-04-22 10:53 | XMS_ITS | Encounter Summary ---
Author Organization [facility] Address [facility] [place] [address] Care Team Providers Care Photogrammetric Compilation Specialist Name Role Phone Alfredo Carroll MIX Primary Care Provider [phone] Reason for Visit * Auth/Cert Specialty Diagnoses [...] Expiration Date Visits Re quested Visits Authorized [id number] 1 Encounter Details Date Type Department Care Team (Late st Contact Info) Description 05/22/2021 11:45 AM EST - 05/22/2021 3:30 PM EST [place] [address] Odalis Tong MD [facility] [place] [address] AV FISTULA CREATION, DIRECT HEMODIALYSIS, ANY SITE, EG MADYSON FISTULA LOWER EXTREMITY (WRVU 11.9) Social History Tobacco Use Types Packs/Day Years [...] Sign Reading Time Taken Comments Blood Pressure 130/87 05/22/2021 3:30 PM EST Pulse 63 05/22/2021 3:30 PM EST Temperature 36.4 ??C (97.5 ??F) 05/22/2021 3:15 PM ES T Respiratory Rate 10 05/22/2021 3:30 PM EST Oxygen Saturation 94% 05/22/2021 3:30 PM EST Inhaled Oxygen Concentration - - Weight 95.3 kg (210 lb) 05/22/2021 10:41 AM EST Height 177.8 cm (5' 10) 05/22/2021 10:41 AM EST Body Mass Index 26.76 05/22/2021 10:41 AM EST documented in this encounter Discharge Summaries * Crystal Ochoa APRN - 05/23/2021 11:43 AM EST Inpatient - Discharge Summary Patient Name: Christy Ambrose Patient Age: 60 y.o. Birthdate: 1960 Admit date: 05/22/2021 Discharge date and time: 05/23/2021 Attending Physician: Odalis Tong MD Discharging Provider: Crystal Ochoa APRN Discharging Service: Vascular Surgery Operations/Major Procedures: 1. RIGHT leg stab phlebectomy/excision of vein cluster 2. RIGHT anterior saphenous vein ligation 3. RIGHT SFA-SFV loop AVG (counterclockwise flow of blood in graft) with 4-7mm tapered PTFE Active Hospital Problems: Active Hospital Problems Diagnosis ??? ESRD (end stage renal disease) on dialysis Resolved Hospital Problems No resolved problems to display. Active Non Hospital Problems: Active Non-Hospital Problems Diagnosis ??? End stage chronic kidney disease [...] GFR 15-29 ml/min ??? 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 H/O [...] IgA nephropathy ??? Gout ??? Hypertension ??? Left leg DVT ??? Epilepsy History of Presentation: Mr Ambrose is a 60M with a hx of ESRD on HD who presents for creation of permanent HD access. He is s/p LUE AVG on 04/03/21, which unfortunately thrombosed. He has a history of multiple failed LUE access procedures and a RUE brachioaxillary AVG in 2018 which failed. He currently undergoes HD via a R [facility]. He takes a daily ASA ?? Last HD yesterday for full run. ?? Access Procedures 03/2021 L brachio-axillary graft with early thrombosis 12/2018 R brachio-axillary graft (Accuseal) 04/2018 Ligation of L radiocephalic AVF 03/2018?L AVF repair/ligation of ruptured access, repair of L brachial artery, fasciotomies ?? Hospital Course: In surgery, findings of: RIGHT leg varicosities overlying planned loop graft. Anterior saphenous vein ligated. Excision of varicose vein cluster. SFA and SFV exposed and suitable for AVG. 4-7 taperedPTFE graft used and tunneled laterally on the thigh in a manner such that blood flow is counterclockwise in the loop. Strong thrill in graft and palpable pedal pulses at case completion. Patient admitted for post operative management and observation. Received short run of HD evening ofsurgery. Patient's recovery went well, with good PO intake, and minimal pain. Right thigh dressingsx 2, palpable thrill to AVG, no drainage or erythema noted. Patient to Dialysis Center for HD priorto discharge. Patient at baseline level of function, cleared for discharge back to his facility. He will f/u in 2-3 weeks for establish access duplex and suture removal. Important Studies and Lab Data: Labs: Lab Results Component Value Date Sodium 135 05/23/2021 Potassium 5.1 (H) 05/23/2021 Chloride 96 (L) 05/23/2021 CO2 27 05/23/2021 BUN 23 (H) 05/23/2021 Creatinine 5.34 (H) 05/23/2021 Glucose Lvl 100 05/23/2021 Lab Results Component Value Date WBC 8.3 05/23/2021 RBC 3.26 (L) 05/23/2021 HGB 10.7 (L) 05/23/2021 HCT 31.6 (L) 05/23/2021 MCV 96.9 (H) 05/23/2021 MCH 32.8 (H) 05/23/2021 MCHC 33.9 05/23/2021 PLATELET 143 (L) 05/23/2021 RDWCV 13.2 05/23/2021 Discharge Condition: Good Discharge to: Care Facility: [facility] Future Appointments and Orders Future Appointments and Orders Future Appointments Provider Department Dept Phone 06/06/2021 1:30 PM Nicolás Marte Vascular Lab at [facility] Arrive at: Pre Billing Specialist Area [phone] 06/06/2021 2:00 PM Nilda Minaya APRN Vascular Surgery at [facility] Arrive at: Pre Billing Specialist Area Future Orders Complete By Expires AVF/Established Access Evaluation [VAS61 Custom] 06/22/2021 12/22/2021 Process Instructions: There is no in-house vascular medical laboratory assistant available on weeknights (5pm-8am), weekends, or holidays. IF THIS IS A REQUEST FOR AN EMERGENT STUDY DURING THOSE HOURS, please have the senior provider responsible for the patient page the Vascular Surgery Fellow/Senior Resident communications department chair to discuss options. Scheduling Instructions: Questions: Laterality: Right Which extremity?: Lower Indication for study/signs & symptoms: s/p loop AVG Question to be answered: flow? stenosis? Preferred location?: [facility] Clinics Anticoagulation & Antiplatelet: Anticoagulation: None Antiplatelet: Agent: ASA Indication: ASCVD Intended Duration: terminal computer operator For questions regarding these medications, please contact: PCP Discharge Medications: Your Medications Continued medications with new dosing Dose Details carvediloL 12.5 mg Tab Commonly known as: Coreg Take 1 tablet by mouth 2 times daily (with meals). What changed: how much to take 12.5 mg Quantity: 60 tablet Refills: 3 losartan 100 mg Tab Commonly known as: COZAAR Take 1 tablet by mouth every morning. What changed: how much to take 100 mg Quantity: 60 tablet Refills: 0 tacrolimus 1 mg Cap Commonly known as: Prograf Take 1 capsule by mouth 2 times daily. What changed: additional instructions 1 mg Quantity: 60 capsule Refills: 0 Continued medications, unchanged Dose Details acetaminophen 500 mg Tab Commonly known as: Tylenol Take 2 tablets by mouth every 6 hours. 1,000 mg Quantity: 30 tablet Refills: 1 allopurinoL 100 mg Tab Commonly known as: Zyloprim Take 1 tablet by mouth daily. 100 mg Quantity: 30 tablet Refills: 11 aspirin EC 81 mg Tbec Take 1 tablet by mouth daily. 81 mg Quantity: 30 tablet Refills: 3 guaiFENesin ER 600 mg Ta12 Commonly known as: Mucinex Take 600 mg by mouth 2 times daily as needed for Congestion. 600 mg Refills: 0 levETIRAcetam 500 mg Tab Commonly known as: Keppra Take 1 tablet by mouth 2 times daily. 500 mg Quantity: 60 tablet Refills: 0 levothyroxine 100 mcg Tab Commonly known as: Synthroid Take 1 tablet by mouth daily. 100 mcg Quantity: 90 tablet Refills: 0 multivitamin Cap Take 1 capsule by mouth daily. 1 capsule Quantity: 30 capsule Refills: 0 pantoprazole EC 20 mg Tbec Commonly known as: Protonix Take 1 tablet by mouth 2 times daily. 20 mg Quantity: 60 tablet Refills: 0 sevelamer carbonate 800 mg Tab Commonly known as: Renvela Take 800 mg by mouth 3 times daily (with meals). 800 mg Refills: 0 Updated Allergies/ADRs: Allergies Allergen Reactions ??? Benazepril Hcl ??? Codeine Other (See Comments) Patient does not know reaction ??? Hydrochlorothiazide ??? Pollen Extracts Sneezing/runny nose Follow-up Recommendations for Providers: To be seen in 2-3 weeks in Vascular Surgery For [place]: Dressings to right thigh can be removed tomorrow, cover with dry gauze if there is drainage, otherwise open to air Palpate AV Graft daily to assess for thrill, please call Vascular Surgery if unable to palpate thrill. Instructions Given to Patient at Discharge: Patient Instructions Patient Instructions You were admitted on 05/22/21 after having a loop AVG to your left leg All of this went very well. Dr. Tong will want you to be seen in approximately 2- 3 weeks. All of this will be ordered and sent to you in the mail. If for some reason you don't receive this within a week or so please call our office as your followup is very important. Call your doctor if: Any fever, any drainage, redness or separation of your incision, increased pain or change in temperature of your leg, absence of thrill in AV graft Activity level: up as tolerated but watch for swelling of your leg. Manage this with leg elevation,toes higher than your nose Diet: resume your previous regular diet Driving: none right now with pain medication use Shower/Bath: showering is fine Wound Care: ok to shower and wash all incisions under running water, pat dry. All incisions should be covered with dry gauze IF there is drainage, otherwise, can be open to air. For any problems or questions please call [phone] For issues on weeknights after 5pm and weekends please call [phone] and ask for the Vascular Fellow communications department chair. documented in this encounter Discharge Instructions * Patient Instructions* Crystal Ochoa APRN - 05/23/2021 11:38 AM EST Patient Instructions You were admitted on 05/22/21 after having a loop AVG to your left leg All of this went very well. Dr. Tong will want you to be seen in approximately 2- 3 weeks. All of this will be ordered and sent to you in the mail. If for some reason you don't receive this within a week or so please call our office as your followup is very important. Call your doctor if: Any fever, any drainage, redness or separation of your incision, increased pain or change in temperature of your leg, absence of thrill in AV graft Activity level: up as tolerated but watch for swelling of your leg. Manage this with leg elevation,toes higher than your nose Diet: resume your previous regular diet Driving: none right now with pain medication use Shower/Bath: showering is fine Wound Care: ok to shower and wash all incisions under running water, pat dry. All incisions should be covered with dry gauze IF there is drainage, otherwise, can be open to air. For any problems or questions please call [phone] For issues on weeknights after 5pm and weekends please call [phone] and ask for the Vascular Fellow communications department chair. documented in this encounter Medications at Time [...] as of this encounter Progress Notes * Anabella De Los Santos RN - 05/23/2021 3:14 PM EST Christy Ambrose was discharged at 1400, AAOx4, VSS on RA. Right groin dressings CDI, no hematoma, DP/PT pulses palpable bilaterally. Right AVG graft site with palpable thrill and positive bruit. Jr gave report to SAVANNA Salinas from [facility]. Discharge summary and medication record printed and included in manila envelope accompanying patient. IVs removed. Belongings gathered. Pt has no concerns at this time. Pt escorted in wheelchair to main entrance by staff, will be met by [facility] taxi driver supervisor. * Ortega Girard MD - 05/23/2021 9:47 AM EST Patient is seen and examined on dialysis. He is eating breakfast while undergoing dialysis. No complaints. Minimal discomfort in right thigh. He has bilateral toe tingling, but this preceded his surgery and is unchanged. He feels ready to be discharged today. Examination: Blood pressure 129/70, heart rate seventy-five. Right IJ catheter site clean, dry, and intact. Chest clear anteriorly and laterally. Heart regular. Right thigh AV graft with good bruit. Feet are warm. Pulses palpable. Data reviewed. K mildly elevated still at 5.1. Hemoglobin at goal at 10.7, down slightly from yesterday. Calcium slightly low at 8.3. Phosphorus normal at 3.9. Assessment plan: 1. ESRD-routine dialysis underway. Ultrafiltration goal today is 1L based on his hemoconcentration curve and data. He will probably be discharged today and resume outpatient dialysis Wednesday. We will await word fromvascular surgery as to when the new PTFE right thigh counterclockwise loop access can be utilized. It appears she has follow-up appointments including vascular lab on June 06 to assess this. * Peter Ye RN - 05/23/2021 5:08 AM ESTSummary: ` Pt was hypotensive throughout night on RA. Patient received bedside dialysis at the beginning of the shift. They removed 1L of fluid. MD was notified of BP. Otherwise, patient rested throughout shift. Right leg pulses palpable +2. Right Fem graft site weak palpable thrill and weak bruit. Dressings have slight drainage contained in the dressing and MDs are aware. Patient remains on bedrest. Patient did not have a BM or void this shift. Will continue to monitor. Call daniels in reach. RDO * Peter Ye RN - 05/23/2021 4:28 AM EST Notified MD regarding bp @0430 Janki Tsang MD - 05/22/2021 9:09 PM EST Post-Operative Check Christy Ginna Ambrose is a 60 y.o. male s/p Procedure(s): AV FISTULA CREATION, DIRECT HEMODIALYSIS, ANY SITE, EG MADYSON FISTULA LOWER EXTREMITY (WRVU 11.9) STAB PHLEBECTOMY LISBET VEINS 1 EXTREMITY 10-20 INCISIONS (WRVU 7.71) S: No nausea/vomiting, chest pain, SOB, pain well controlled, offers no complaints. Just completed HD in room. O: Temp: [36.4 ??C (97.5 ??F)-36.8 ??C (98.2 ??F)] Heart Rate: [61-67] Resp: [10-19] BP: (108-137)/(58-87) SpO2: [93 %-98 %] Heart Rate from SpO2: [57 bpm-69 bpm] I/O last 3 completed shifts: In: 500 [I.V.:500] Out: 50 [Blood:50] I/O this shift: In: - Out: 1001 [Other:1001] Recent Results (from the past 24 hour(s)) BLOOD GAS 2 ARTERIAL Result Value Ref Range pH Art 7.36 7.35 - 7.45 pCO2 Art 57 (H) 35 - 45 mmHg pO2 Art 38 (CRIT) 85 - 104 mmHg HCO3 Art 31.8 (H) 20.0 - 26.0 mmol/L BE Art 6.4 (H) -3.0 - 3.0 mmol/L Hgb Blood Gas 12.3 (L) 13.7 - 16.5 g/dL O2HB Art 64.1 (L) 94.0 - 97.0 % COHB Art 0.9 % METHB Art 0.3 <=1.5 % Na Whole Blood 137 135 - 145 mmol/L K Whole Blood 6.7 (CRIT) 3.5 - 5.0 mmol/L ICa Whole Blood 1.07 (L) 1.15 - 1.33 mmol/L CL Whole Blood 98 98 - 107 mmol/L Gluc Whole Bld 90 65 - 199 mg/dL Lactate WB 1.4 0.5 - 2.2 mmol/L Potassium Result Value Ref Range Potassium 7.3 (CRIT) 3.5 - 5.0 mmol/L BLOOD GAS 2 ARTERIAL Result Value Ref Range pH Art 7.48 (H) 7.35 - 7.45 pCO2 Art 39 35 - 45 mmHg pO2 Art 185 (H) 85 - 104 mmHg HCO3 Art 28.5 (H) 20.0 - 26.0 mmol/L BE Art 4.5 (H) -3.0 - 3.0 mmol/L Hgb Blood Gas 10.6 (L) 13.7 - 16.5 g/dL O2HB Art 98.5 (H) 94.0 - 97.0 % COHB Art 0.3 % METHB Art 0.3 <=1.5 % Na Whole Blood 134 (L) 135 - 145 mmol/L K Whole Blood 7.1 (CRIT) 3.5 - 5.0 mmol/L ICa Whole Blood 1.03 (L) 1.15 - 1.33 mmol/L CL Whole Blood 98 98 - 107 mmol/L Gluc Whole Bld 99 65 - 199 mg/dL Lactate WB 0.7 0.5 - 2.2 mmol/L FIO2 Art 61 % Flow Art 0.7 LPM PF Ratio Art 303 Temp Art 35.0 Celsius COVID-19 PCR Specimen: Nasopharyngeal Swab Symptoms->Surveillance Result Value Ref Range SARS-CoV-2 RNA PCR Not Detected Not Detected SARS-CoV-2 Source TUBE BUILDER Swab POCT Glucose Result Value Ref Range POC Glucose 179 65 - 199 mg/dL BLOOD GAS 2 ARTERIAL Result Value Ref Range pH Art 7.49 (H) 7.35 - 7.45 pCO2 Art 34 (L) 35 - 45 mmHg pO2 Art 173 (H) 85 - 104 mmHg HCO3 Art 25.6 20.0 - 26.0 mmol/L BE Art 2.2 -3.0 - 3.0 mmol/L Hgb Blood Gas 10.5 (L) 13.7 - 16.5 g/dL O2HB Art 98.4 (H) 94.0 - 97.0 % COHB Art 0.3 % METHB Art 0.3 <=1.5 % Na Whole Blood 132 (L) 135 - 145 mmol/L K Whole Blood 6.8 (CRIT) 3.5 - 5.0 mmol/L ICa Whole Blood 1.05 (L) 1.15 - 1.33 mmol/L CL Whole Blood 98 98 - 107 mmol/L Gluc Whole Bld 146 65 - 199 mg/dL Lactate WB 0.8 0.5 - 2.2 mmol/L FIO2 Art 50 % PF Ratio Art 346 POCT Glucose Result Value Ref Range POC Glucose 153 65 - 199 mg/dL Blood Gas Venous Result Value Ref Range pH Rey 7.42 7.32 - 7.42 pCO2 Rey 40 (L) 41 - 51 mmHg pO2 Rey 132 (H) 25 - 40 mmHg HCO3 Rey 25.3 mmol/L BE Rey 0.8 mmol/L Hgb Blood Gas 11.8 (L) 13.7 - 16.5 g/dL O2HB Rey 97.9 % COHB Rey 0.2 % METHB Rey 0.3 <=1.5 % Na Whole Blood 135 135 - 145 mmol/L K Whole Blood 5.9 (H) 3.5 - 5.0 mmol/L ICa Whole Blood 1.13 (L) 1.15 - 1.33 mmol/L CL Whole Blood 100 98 - 107 mmol/L Gluc Whole Bld 149 65 - 199 mg/dL Lactate WB 0.9 0.5 - 2.2 mmol/L BGas Source Venous Basic Metabolic Panel (non-fasting) Result Value Ref Range Glucose Lvl 129 65 - 199 mg/dL BUN 30 (H) 10 - 20 mg/dL Creatinine 6.52 (H) 0.80 - 1.50 mg/dL Sodium 137 135 - 145 mmol/L Potassium 6.0 (H) 3.5 - 5.0 mmol/L Chloride 100 98 - 107 mmol/L CO2 27 22 - 31 mmol/L Anion Gap 10 5 - 15 mmol/L Calcium 8.9 8.5 - 10.5 mg/dL Estimated GFR 9 (L) >=60 mL/min/1.73 m?? Physical Exam Gen: A0x3, NAD, resting comfortably CVS: RRR, no murmurs/rubs/gallops Resp: CTAB, breathing comfortably on RA Chest: R chest with tunneled IJ inplace Abd: soft, appropriately tender, nondistended Ext: SCDs in place, WWP, L thigh with x2 dressings in place, sanguinous strike through however areasoft, no noted hematoma. Right DP palpable. AP Christy Ambrose is a 60 y.o. male s/p RIGHT leg stab phlebectomy/excision of vein cluster, RIGHT anterior saphenous vein ligation, RIGHT SFA-SFV loop AVG (counterclockwise flow of blood in graft) with 4-7mm tapered PTFE. Currently in stable condition and recovering well. - NPO diet (Give Meds) - Pain well controlled - Hemodynamically stable, just completed HD. - Renal diet ordered per sign out from primary team. - Continue post operative plan per primary team Janki Pittman MD 05/22/2021 * Anabella De Los Santos RN - 05/22/2021 7:31 PM EST Christy Ambrose arrived at 1720 AAOx4, VSS on RA, right groin incisions with small amount of sanguinous drainage contained within dressing; area soft, no hematoma. Right femoral graft site with weak palpable thrill and weak bruit. Bedrest maintained. Hemodialysis initiated at bedside by thermocouple tester. Minimal pain currently. Pt oriented to room, call daniels within reach, [facility]. * Angely Martinez, SAVANNA - 05/22/2021 11:34 AM EST Confirmed with staff at [facility], pt's last HD was yesterday. He did not take any medications today and has been npo. documented in this encounter H&P Notes * Tristin Marrero MD - 05/22/2021 11:45 AM EST Vascular Surgery History and Physical HPI: Mr Ambrose is a 60M with a hx of ESRD on HD who presents for creation of permanent HD access. He is s/p LUE AVG on 04/03/21, which unfortunately thrombosed. He has a history of multiple failed LUEaccess procedures and a RUE brachioaxillary AVG in 2018 which failed. He currently undergoes HD viaa R [facility]. He takes a daily ASA Last HD yesterday for full run. Access Procedures 03/2021 L brachio-axillary graft with early thrombosis 12/2018 R brachio-axillary graft (Accuseal) 04/2018 Ligation of L radiocephalic AVF 03/2018 L AVF repair/ligation of ruptured access, repair of L brachial artery, fasciotomies Review of Systems: As per HPI Past Medical History Patient Active Problem List Diagnosis Code ??? [...] ml/min N18.4 ??? 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 skilled nursing [...] End stage chronic kidney disease N18.6 Past Surgical History Past Surgical History: Procedure Laterality Date ??? CREATED BY INTERFACE Entered not Verified Procedure Date: 09/19/2010 ??? IR DIALYSIS ACCESS - AV FISTULA EVALUATIONS 11/30/2019 IR Dialysis Access - AV Fistula Evaluations 11/30/2019 Sabrina Velez MD [facility] ??? IR DIALYSIS ACCESS - AV FISTULA EVALUATIONS 01/07/2021 IR Dialysis Access - AV Fistula Evaluations 01/07/2021 Sabrina Velez MD [facility] ??? IR DIALYSIS ACCESS - TUNNELED LINE 07/30/2018 IR Dialysis Access - Tunneled Line 07/30/2018 Walt Lin MD [facility] ??? IR DIALYSIS ACCESS - TUNNELED LINE 08/30/2018 IR Dialysis Access - Tunneled Line 08/30/2018 Erwin Simon, INTENSIVE CARE UNIT REGISTERED NURSE [facility] ??? IR DIALYSIS ACCESS - TUNNELED LINE 12/27/2020 IR Dialysis Access - Tunneled Line 12/27/2020 Kanu Apple MD [facility] ??? IR DIALYSIS ACCESS - TUNNELED LINE 01/23/2021 IR Dialysis Access - Tunneled Line 01/23/2021 Kanu Apple MD [facility] ??? IR DIALYSIS ACCESS - TUNNELED LINE 03/20/2021 IR Dialysis Access - Tunneled Line 03/20/2021 Tab Harmon MD [facility] ??? KIDNEY TRANSPLANT KIDNEY TRANSPLANT / RECIPIENT/LT Procedure Date: 11/26/2002 ??? PRO CREAT AV FISTULA, NON-AUTOGENOUS GRAFT Right 12/13/2018 PLACEMENT, AV HEMODIALYSIS GRAFT, SYNTHETIC GRAFT, UPPER EXTREMITY (WRVU 12.03) performed by Mary Garay MD at [facility] OR ??? PRO CREAT AV FISTULA, NON-AUTOGENOUS GRAFT Left 04/03/2021 PLACEMENT, AV HEMODIALYSIS GRAFT, SYNTHETIC GRAFT, UPPER EXTREMITY (WRVU 12.03) performed by Odalis Tong MD at [facility] OR ? ? PRO DEBRIDEMENT SUBCUTANEOUS TISSUE 20 SQCM/< Left 02/20/2016 DEBRIDEMENT SKIN AND SUBCU, HEAD/NECK performed by Miguel Angel Moreno MD at [facility] OR ??? PRO DECOMPRESS FOREARM, BRACH ART EXPLOR Left 04/06/2018 FASCIOTOMY, FOREARM, WITH BRACHIAL ARTERY EXPLORATION (WRVU 8.41) performed by Lida Peter MDat [facility] OR ??? PRO DIRECT REPAIR RUPTURED ANEURYSM, AXILLO-BRACHIAL ARM INCIS Left 04/06/2018 @REPAIR, RUPTURED AXILLARY OR BRACHIAL ARTERY ANEURYSM BY ARM INCISION (WRVU *) performed by Lida Peter MD at [facility] OR ??? PRO EXC PAROTD, TOTAL, UNILAT RAD NECK Left 02/05/2016 @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, TOTAL, WITH UNILATERAL RADICAL NECK DISSECTION performed by Miguel Angel Moreno MD at [facility] OR ??? PRO EXC SKIN MALIG 3.1-4CM FACE, FACIAL Left 02/05/2016 EXC MALIGNANT LESION, 3.1 TO 4.0CM, FACE performed by Miguel Angel Moreno MD at [facility] OR ? ? PRO EXC SKIN MALIG >4CM TRUNK, ARM, LEG 04/19/2012 EXC MALIGNANT LESION, MICHAEL > 4.0CM, TRUNK performed by SABRINA SANCHEZ at [facility] OR ??? PRO LAP, RADICAL NEPHRECTOMY Left 05/31/2017 @LAPAROSCOPY, RADICAL NEPHRECTOMY (WRVU 25.06) performed by Jax Mills MD at [facility] OR ??? PRO LIGATN ANGIOACCESS AV FISTULA Left 04/19/2018 LIGATION OR BANDING OF HEMODIALYSIS FISTULA OR GRAFT UPPER EXTREMITY (WRVU 6.25) performed by Odalis Tong MD at [facility] OR ??? PRO NEGATIVE PRESSURE WOUND THERAPY, LESS THAN OR EQUAL TO 50 SQCM Left 04/19/2018 DRESSING CHANGE (VAC ASSISTED) UP TO 50SQ.CM (WRVU 0.55) performed by Odalis Tong MD [facility] OR ??? PRO REBL VES GRAFT, UP EXTREM Left 04/06/2018 REPAIR BLOOD VESSEL WITH GRAFT OTHER THAN VEIN, UPPER EXTREMITY (WRVU 15.83) performed by Lida Peter MD at [facility] OR ??? PRO RELIEVE PRESSURE ON NERVE(S) Left 04/06/2018 (MSURG) CARPAL TUNNEL (WRVU 4.82) performed by Silviano Sparks MD at [facility] OR ??? PRO REPAIR INTERMEDIATE S/A/T/E 2.6-7.5 CM 04/19/2012 REPAIR INTERMEDIATE WOUND, (NO HANDS OR FEET) 2.6 TO 7.5CM, UPPER EXTREMITY performed by SABRINA SANCHEZ at [facility] OR ? ? PRO REPAIR INTERMEDIATE S/A/T/E > 30.0 CM Left 04/14/2018 REPAIR INTERMEDIATE WOUND, (NO HANDS OR FEET) >30.0CM, UPPER EXTREMITY (WRVU 5) performed by Yimi Easton MD at [facility] OR ??? PRO REVISE MEDIAN N/CARPAL TUNNEL SURG Left 04/06/2018 MEDIAN NERVE DECOMPRESSION (CARPAL TUNNEL RELEASE) (WRVU 4.97) performed by Lida Peter MD [facility] MAIN OR ? ? PRO SPLIT GRFT TRUNK, ARM, LEG <100SQCM Left 04/26/2018 SPLIT THICK SKIN GRAFT,100 SQ CM OR LESS, ARMS (WRVU 9.9) performed by Silviano Sparks MD at [facility] OR ? ? PRO SPLIT GRFT, HEAD, FAC, HAND, FEET <100SQCM N/A 02/20/2016 SPLIT THICKNESS SKIN SPLIT GRAFT,100SQ CM OR LESS, NECK performed by Miguel Angel Moreno MD at [facility] OR ??? PRO SPLIT GRFT, TRUNK, ARM, LEG EA 100SQCM N/A 04/26/2018 EA.ADDITIONAL 100SQ.CM STSG (WRVU 1.72) performed by Silviano Sparks MD at [facility] MAIN OR ??? PRO UPPER GI ENDOSCOPY, BIOPSY N/A 05/13/2017 EGD WITH BIOPSY (WRVU 2.49) performed by Aditya Barrera MD at [facility] ENDOSCOPY ??? PRO VASCULAR SURGERY PROCEDURE UNLIST Left 11/20/2015 LIGATION\REPAIR AV FISTULA performed by Camilo Ireland MD at [facility] MAIN OR ??? PRO VASCULAR SURGERY PROCEDURE UNLIST Left 11/20/2015 EXCISION VEIN FROM HAND performed by Camilo Ireland MD at [facility] MAIN OR ??? US RENAL TRANSPLANT BIOPSY 12/31/2010 ??? US RENAL TRANSPLANT RIGHT Right 06/04/2018 US Renal Transplant Right 06/04/2018 [facility] RAD ULTRASOUND Functional Status/Social Hx: Social History Socioeconomic History ??? Marital status: Single Spouse name: Not on file ??? Number of children: Not on file ??? Years of education: Not on file ??? Highest education level: Not on file Occupational History ??? 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 Smoking status: [...] file Housing Stability: Not on file Family Hx: Negative for Thrombosis, Bleeding Disorders Medications: No current facility-administered medications on file prior to encounter. Current Outpatient Medications on File Prior to Encounter Medication Sig Dispense Refill ??? sevelamer carbonate (Renvela) 800 mg Tablet Take 800 mg by mouth 3 times daily (with meals). ??? aspirin 81 mg Tablet, Delayed Release (E.C.) Take 1 tablet by mouth daily. 30 tablet 3 ??? multivitamin Capsule Take 1 capsule by mouth daily. 30 capsule 0 ??? allopurinol (ZYLOPRIM) 100 mg Tablet Take 1 tablet by mouth daily. 30 tablet 11 ??? levETIRAcetam (KEPPRA) 500 mg Tablet Take [...] 2 times daily. 60 tablet 0 ??? levothyroxine (SYNTHROID) 100 mcg Tablet Take 1 tablet by mouth daily. 90 tablet 0 ??? guaiFENesin ER (Mucinex) 600 mg Tablet Extended Release 12hr Take 600 mg by mouth 2 times dailyas needed for Congestion. ??? acetaminophen (TYLENOL) 500 mg Tablet Take 2 tablets by mouth every 6 hours. 30 tablet 1 ??? tacrolimus (PROGRAF) 1 mg Capsule Take [...] times daily (with meals).) 60 tablet 3 Allergies: Benazepril hcl, Codeine, Hydrochlorothiazide, and Pollen extracts Physical Exam: Temp: [36.6 ??C (97.9 ??F)] Heart Rate: [52] Resp: [16] BP: (138)/(88) SpO2: [98 %] Heart Rate from SpO2: -- General: NAD, resting comfortably HEENT: PERRL, anicteric sclerae CVS: Regular rate, no murmurs rubs or gallops Pulm: Clear bilaterally Abd: soft, non tender, non distended Ext: Warm, palpable pedal pulses Neuro: Grossly nonfocal, moving all extremities. Labs: No results for input(s): WBC, HGB, HCT, PLATELET in the last 72 hours. No results for input(s): NA, K, CL, CO2, BUN, CREATININE, PHOS, CALCIUM in the last 72 hours. Imaging/Studies: None new Assessment and Plan: Mr Ambrose is a 60M with a hx of ESRD on HD who presents for creation of permanent HD access. He hasa history of failed access procedures in both upper extremities. Plan for RIGHT lower extremity look AVG (SFA- SFV) and stab phlebectomy. Angelina Devries [facility] Pager #[phone] documented in this encounter Nursing Notes * Erwin Álvarez RN - 05/22/2021 3:15 PM EST 1515- Pt arrives from OR awake and alert, oriented x4. Pt protecting his own airway on arrival witheven/regular respirations on oxygen 6L/min via simple mask. Patient has palpable thrill to newly created RLE AV fistula. Patient has no complaints on arrival. Pt placed on all monitors, VSS. 1530- Palpable thrill to right groin. No signs of bleeding or swelling. Palpable pedal pulses. documented in this encounter Miscellaneous Notes * Initial Assessments - Ama Boo RN - 05/23/2021 10:39 AM EST Office of Care Management Initial Assessment / Discharge note Ama Boo RN reviewed record and discussed patient with Care Team. Source of Information: Team, bedside nurse, medical record, and Sibling,Chart Review,Caregiver Introduced self/reviewed role; services accepted. Reason for Hospitalization: graft Last COVID test: Lab Results Component Value Date [id number] Not Detected 05/22/2021 Past medical History: Past Medical History: Diagnosis Date ??? BP (high blood pressure) ??? DVT (deep venous thrombosis) ??? Gout ??? Hypertension ??? Kidney problem ??? Pneumonia ??? TBI (traumatic brain injury) 1980 Hospitalizations Within the Past 30 Days: no previous admission in last 30 days Current Decision-Making Capacity: DPOA-HC Advance Care Planning: Attempt Cardiopulmonary Resuscitation - Inpatient Received -Advanced Directive: Yes, on file Who is your DPOA-HC?: Sibling Current Coping/Education/Information Needs: no needs identified at this time Current Functional Ability: Assistive Equipment and Assistive Person Functional Status Prior to Admission: Assistive Equipment Home Environment: Others in the home: other (see comments) (facility). Current Living Arrangements:independent/assisted living facility. Accessibility Concerns: . Current DME: cane - straight Home Address confirmed as: [address] [place] [id number] Social & Family Supports: All names listed below confirmed with patient as current and correct Extended Emergency Contact Information Primary Emergency Contact: Lucas Ambrose Address: [address] [place] [address] [place] [address] [facility] Mobile Relation: Sibling Secondary Emergency Contact: Yenifer Frausto Address: [address] [place] [address] Mobile Relation: Aunt/Uncle Current Care Provided by: self,other (see comments) (staff at assisted living) Provides Primary Care For: no one Caregiver if needed: none Quality of Family relationships: involved,supportive Community Resources being provided currently: outpatient peritoneal dialysis,assisted living facility Behavioral Health History: Lucia Substance Use/Abuse listed: Social History Tobacco Use Smoking Status Former Smoker ??? Packs/day: 0.25 ??? Years: 1.50 ??? Pack years: 0.37 ??? Types: Cigarettes ??? Quit date: 12/03/2000 ??? Years since quittin.4 Smokeless Tobacco Former User In the past year have you used an illegal drug or used a prescription medication for non-medical reaons?: No 0 No problems reported 1-2 Low level 3-5 Moderate level 6-8 Substantial level 9- 10 Severe level In the past year have you had 5 or more drinks a day containing alcohol?: No 0 to 7 points: Low risk 8 to 15 points: Medium risk 16 to 19 points: High risk 20 to 40 points: Addiction likely Other Pertinent/Service Specific Information: none Health/Prescription Coverage: Primary Insurance: MEDICARE Payor: MEDICARE / Plan: MEDICARE PART A & B / Product Type: *No Product type* / Secondary Insurance: MEDICAID [place] Prescription Coverage: Yes Preferred Pharmacy: [id number] AT [facility] & [address] [phone] [facility] [address] Primary Care Provider: Carroll Fuentes DO [phone] Patient/Caregiver Goals of Treatment: Patient will return to assisted living facility Potential Needs for Transition of Care: none Agency Referrals: Return to service: [facility] [address] P: [phone] F: [phone] [address] Patient will discharge today. Transportation: no concerns Transportation Anticipated: other (see comments) (ride service) Concerns to be Addressed: denies needs/concerns at this time Assessment: Patient is admitted to vascular service for RIGHT lower extremity look AVG (SFA- SFV) Plan: Patient will have dialysis this morning and will discharge back to assisted living. A member of the Care Management team will continue to monitor progress, follow for continuity of care and assist with transition of care planning. Ama GAFFNEY, RN Phone: [phone] Pager: [phone] * Op Note - Tristin Marrero MD - 05/22/2021 4:00 PM EST [facility] Operative Note Patient Name: Christy Ambrose : [id number] MR#: [id number] Case Date: 05/22/2021 Surgeon: Surgeon(s) and Role: * Odalis Tong MD - Primary * Tristin Marrero MD - Resident Preoperative diagnosis: ESRD Postoperative diagnosis: ESRD Procedure(s) (LRB): AV FISTULA CREATION, DIRECT HEMODIALYSIS, ANY SITE, EG MADYSON FISTULA LOWER EXTREMITY (WRVU 11.9) (Right) STAB PHLEBECTOMY LISBET VEINS 1 EXTREMITY 10-20 INCISIONS (WRVU 7.71) (Right) Procedures: 1. RIGHT leg stab phlebectomy/excision of vein cluster 2. RIGHT anterior saphenous vein ligation 3. RIGHT SFA-SFV loop AVG (counterclockwise flow of blood in graft) with 4-7mm tapered PTFE ?? Findings: RIGHT leg varicosities overlying planned loop graft. Anterior saphenous vein ligated. Excision of varicose vein cluster. SFA and SFV exposed and suitable for AVG. 4-7 tapered PTFE graft used and tunneled laterally on the thigh in a manner such that blood flow is counterclockwise in the loop. Strong thrill in graft and palpable pedal pulses at case completion. Anesthesia: General Estimated Blood Loss: 50 mL Heparin: 8,000 units ?? Protamine: 30 mg Specimens removed during surgery: None Fluids: 500 mL ?? PRBCs: none (See Anesthesia Record/Report for Other Blood Products) Urine Output: (no urine output recorded) Drains: None Surgical Closure: Primary Closure - skin incision is completely closed without any wires, isa, drains or other devices Disposition: awakened from anesthesia, extubated and taken to the recovery room in a stable condition, having suffered no apparent untoward event. Condition: doing well without problems (Please see the Surgical Encounter Summary for any Implant and Specimen details pertinent to this patient.) HPI/Surgical Indications: 60M with a hx of ESRD on HD who presents for creation of permanent HD access. He is s/p LUE AVG on 04/03/21, which unfortunately thrombosed. He has a history of multiple failed LUE access procedures and a RUE brachioaxillary AVG in 2019 which failed. He currently undergoes HD via a R IJ TDC. He takes a daily ASA. Plan for RLE AVG today with stab phlebectomy. Procedure Description: After informed consent was obtained the patient was brought back to the operating room and placed supine on the OR table. General anesthesia was induced and the patient was intubated with an ETT. Additional support lines (escobar, arterial line, PIVs) were placed. Preoperative antibiotics were given. A timeout was performed. Attention was then turned to the patient's right leg which was prepared and draped in the usual sterile fashion. A longitudinal incision was made over the anterior thigh overlying the SFA as marked by preoperative ultrasound. A large varicosity off the anterior saphenous vein was encountered. This was dissected free and the anterior saphenous vein wa s ligated. The cluster of varicosities were excised. The dissection continued deeper and the SFA was identified. This was dissected free of surrounding tissues and controlled proximally and distally with vessel loops. Next one of the paired SFVs was identified and similarly dissected free of surrounding tissues and controlled proximally and distally with vessel loops. Satisfied with this, the planned tunnel was marked with a marking pen. Along the planned tunnel, two stab incisions were made and stab phelebectomy was performed. The varicosities were grasped and removed. These were ligated with silk ties. Next, a Agustina Wick tunneler was used to tunnel out laterally on the thigh. One of the stab incisions was used as a counter incision. Systemic heparin was administered. A 4-7mm tapered graft was opened onto the field and brought through the tunnel. Care was taken to ensure it did not twist or kink. The vein was then controlled proximally and distally. A longitudinal venotomy was made wi th a #11 blade and this was extended with flor scissors. The 7mm end of the graft was then beveledand an end-to-side anastomosis was created with running 6- 0 prolene suture. The anastomosis was completed and the vessel loops were loosened. There was backbleeding. The graft was flushed with heparinized saline and clamped. Next, the SFA was clamped proximal and distal and a longitudinal arteriotomy was made with an #11 blade. This was extended with Flor scissors. The 4mm tapered end of the graft was trimmed to length and beveled. End-to-side anastomosis was created with running CV6 suture. Prior to completion, the arteries and graft were flushed. The anastomosis was completed and the clamps were removed. There was an excellent thrill in the graft and palpable pulses in the feet. Protamine was adminstered. Hemostasis was obtained with surgicell, thrombin-soaked gelfoam, cautery, and surgiflo. Once hemostasis was satisfactory the incision was closed in layers of 3-0 vicryl and the skinwas approximated with 3-0 nylon vertical mattress sutures. The stab incision used as a counter was closed with interrupted 3-0 vicryl suture and a 3-0 nylon vertical mattress suture. The remaining stab incision was closed with vicryl and dermabond was applied to the skin. Dry sterile dressings wereapplied and the patient was awoken from anesthesia and taken to PACU for recovery. Infection Bundle used? Yes Infection present at time of surgery? No Pre-operative IV antibiotics: Ceftriaxone Implants: Implant Name Type Inv. Item Serial No. Ship Officer Lot No. LRB No. Used Action GRAFT VASCULAR [id number] STRAIGHT HEPARIN COATED STANDARD ([id number]) - [id number] IMPLANTS GRAFT VASCULAR [id number] STRAIGHT HEPARIN COATED STANDARD ([id number]) [id number] [employer] Right 1 Implanted GRAFT VASCULAR [id number] STRAIGHT HEPARIN COATED THIN WALL ([id number]) - [id number] IMPLANTS GRAFT VASCULAR [id number] STRAIGHT HEPARIN COATED THIN WALL ([id number]) [id number] [employer] Right 1 Wasted Associated attestation - Odalis Tong MD - 05/23/2021 10:18 AM EST Attestation: Case Date: 05/22/2021 I was present and scrubbed for the entire procedure. ODALIS TONG MD 05/23/2021 * Consult Note - Ortega Girard MD - 05/22/2021 3:54 PM EST [facility] HYPERTENSION/ NEPHROLOGY INPATIENT CONSULTATION PATIENT: Christy Ambrose : 1960 REASON FOR CONSULTATION: Management of ESRD and new right thigh graft referred by Dr. 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 BP (high blood pressure) ??? DVT (deep venous thrombosis) ??? Gout ??? Hypertension ??? Kidney problem ??? Pneumonia ??? TBI (traumatic brain injury) 1979 HPI: 60 y.o. male admitted with ESRD for new right thigh graft for consultation regarding management of ESRD and hyperkalemia. Dialyzed yesterday. Despite this, K in OR elevated to peak 7.3. managed medically in OR and repeat in pacu 5.9. SR without prolongation of interval by monitor in PACU. Feels ok post, mild leg pain, dentures out which bother his mouth and mouth dry. Otherwise, complete ros neg as below. HD center: [facility] Days: MWF Access: RI TD Outpatient dialysis prescription - Time: 4H - F180 - EDW: 86.5 - 2 K bath - 35 HCO3 bath Recent data from Nov outpt unit: Hb 10.8 on micera 50mcg q4 weeks, iron sucrose 100mg qhd Ca 9.4, P 5.1, PTH 111 MEDICATIONS: No current facility-administered medications on file prior to encounter. Current Outpatient Medications on File Prior to Encounter Medication Sig Dispense Refill ??? sevelamer carbonate (Renvela) 800 mg Tablet Take 800 mg by mouth 3 times daily (with meals). ??? aspirin 81 mg Tablet, Delayed Release (E.C.) Take 1 tablet by mouth daily. 30 tablet 3 ??? multivitamin Capsule Take 1 capsule by mouth daily. 30 capsule 0 ??? allopurinol (ZYLOPRIM) 100 mg Tablet Take 1 tablet by mouth daily. 30 tablet 11 ??? levETIRAcetam (KEPPRA) 500 mg Tablet Take [...] 2 times daily. 60 tablet 0 ??? levothyroxine (SYNTHROID) 100 mcg Tablet Take 1 tablet by mouth daily. 90 tablet 0 ??? guaiFENesin ER (Mucinex) 600 mg Tablet Extended Release 12hr Take 600 mg by mouth 2 times dailyas needed for Congestion. ??? acetaminophen (TYLENOL) 500 mg Tablet Take 2 tablets by mouth every 6 hours. 30 tablet 1 ??? tacrolimus (PROGRAF) 1 mg Capsule Take 1 capsule by mouth 2 times daily. (Patient taking differently: Take 1 mg by mouth 2 times daily. 05/05/21 per [facility], patient taking 2 capsules in the morning and 1 capsule every evening) 60 capsule 0 ??? carvedilol (COREG) 12.5 mg Tablet Take 1 tablet by mouth 2 times daily (with meals). (Patient taking differently: Take 6.25 mg by mouth 2 times daily (with meals).) 60 tablet 3 Scheduled Meds: ??? acetaminophen 1,000 mg Oral Q6H Continuous Infusions: PRN Meds:.naloxone, HYDROmorphone OR HYDROmorphone, ondansetron, prochlorperazine Allergies: Allergies Allergen Reactions ??? Benazepril Hcl ??? Codeine Other (See Comments) Patient does not know reaction ??? Hydrochlorothiazide ??? Pollen Extracts Sneezing/runny nose PSH: Past Surgical History: Procedure Laterality Date ??? CREATED BY INTERFACE Entered not Verified Procedure Date: 09/19/2010 ??? IR DIALYSIS ACCESS - AV FISTULA EVALUATIONS 11/30/2019 IR Dialysis Access - AV Fistula Evaluations 11/30/2019 Sabrina Velez MD [facility] RAD ??? IR DIALYSIS ACCESS - AV FISTULA EVALUATIONS 01/07/2021 IR Dialysis Access - AV Fistula Evaluations 01/07/2021 Sabrina Velez MD [facility] RAD ??? IR DIALYSIS ACCESS - TUNNELED LINE 07/30/2018 IR Dialysis Access - Tunneled Line 07/30/2018 Walt Lin MD [facility] RAD ??? IR DIALYSIS ACCESS - TUNNELED LINE 08/30/2018 IR Dialysis Access - Tunneled Line 08/30/2018 Erwin Simon, INTENSIVE CARE UNIT REGISTERED NURSE [facility] RAD ??? IR DIALYSIS ACCESS - TUNNELED LINE 12/27/2020 IR Dialysis Access - Tunneled Line 12/27/2020 Kanu Apple MD [facility] RAD ??? IR DIALYSIS ACCESS - TUNNELED LINE 01/23/2021 IR Dialysis Access - Tunneled Line 01/23/2021 Kanu Apple MD [facility] RAD ??? IR DIALYSIS ACCESS - TUNNELED LINE 03/20/2021 IR Dialysis Access - Tunneled Line 03/20/2021 Tab Harmon MD [facility] ??? KIDNEY TRANSPLANT KIDNEY TRANSPLANT / RECIPIENT/LT Procedure Date: 11/26/2002 ??? PRO CREAT AV FISTULA, NON-AUTOGENOUS GRAFT Right 12/13/2018 PLACEMENT, AV HEMODIALYSIS GRAFT, SYNTHETIC GRAFT, UPPER EXTREMITY (WRVU 12.03) performed by Mary Garay MD at [facility] OR ??? PRO CREAT AV FISTULA, NON-AUTOGENOUS GRAFT Left 04/03/2021 PLACEMENT, AV HEMODIALYSIS GRAFT, SYNTHETIC GRAFT, UPPER EXTREMITY (WRVU 12.03) performed by Odalis Tong MD at [facility] MAIN OR ? ? PRO DEBRIDEMENT SUBCUTANEOUS TISSUE 20 SQCM/< Left 02/20/2016 DEBRIDEMENT SKIN AND SUBCU, HEAD/NECK performed by Miguel Angel Moreno MD at [facility] MAIN OR ??? PRO DECOMPRESS FOREARM, BRACH ART EXPLOR Left 04/06/2018 FASCIOTOMY, FOREARM, WITH BRACHIAL ARTERY EXPLORATION (WRVU 8.41) performed by Lida Peter MDat [facility] MAIN OR ??? PRO DIRECT REPAIR RUPTURED ANEURYSM, AXILLO-BRACHIAL ARM INCIS Left 04/06/2018 @REPAIR, RUPTURED AXILLARY OR BRACHIAL ARTERY ANEURYSM BY ARM INCISION (WRVU *) performed by Lida Peter MD at [facility] MAIN OR ??? PRO EXC PAROTD, TOTAL, UNILAT RAD NECK Left 02/05/2016 @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, TOTAL, WITH UNILATERAL RADICAL NECK DISSECTION performed by Miguel Angel Moreno MD at [facility] OR ??? PRO EXC SKIN MALIG 3.1-4CM FACE, FACIAL Left 02/05/2016 EXC MALIGNANT LESION, 3.1 TO 4.0CM, FACE performed by Miguel Angel Moreno MD at [facility] OR ? ? PRO EXC SKIN MALIG >4CM TRUNK, ARM, LEG 04/19/2012 EXC MALIGNANT LESION, MICHAEL > 4.0CM, TRUNK performed by SABRINA SANCHEZ at [facility] OR ??? PRO LAP, RADICAL NEPHRECTOMY Left 05/31/2017 @LAPAROSCOPY, RADICAL NEPHRECTOMY (WRVU 25.06) performed by Jax Mills MD at [facility] OR ??? PRO LIGATN ANGIOACCESS AV FISTULA Left 04/19/2018 LIGATION OR BANDING OF HEMODIALYSIS FISTULA OR GRAFT UPPER EXTREMITY (WRVU 6.25) performed by Odalis Tong MD at [facility] MAIN OR ??? PRO NEGATIVE PRESSURE WOUND THERAPY, LESS THAN OR EQUAL TO 50 SQCM Left 04/19/2018 DRESSING CHANGE (VAC ASSISTED) UP TO 50SQ.CM (WRVU 0.55) performed by Odalis Tong MD [facility] MAIN OR ??? PRO REBL VES GRAFT, UP EXTREM Left 04/06/2018 REPAIR BLOOD VESSEL WITH GRAFT OTHER THAN VEIN, UPPER EXTREMITY (WRVU 15.83) performed by Lida Peter MD at [facility] MAIN OR ??? PRO RELIEVE PRESSURE ON NERVE(S) Left 04/06/2018 (MSURG) CARPAL TUNNEL (WRVU 4.82) performed by Silviano Sparks MD at [facility] OR ??? PRO REPAIR INTERMEDIATE S/A/T/E 2.6-7.5 CM 04/19/2012 REPAIR INTERMEDIATE WOUND, (NO HANDS OR FEET) 2.6 TO 7.5CM, UPPER EXTREMITY performed by SABRINA SANCHEZ at [facility] MAIN OR ? ? PRO REPAIR INTERMEDIATE S/A/T/E > 30.0 CM Left 04/14/2018 REPAIR INTERMEDIATE WOUND, (NO HANDS OR FEET) >30.0CM, UPPER EXTREMITY (WRVU 5) performed by Yimi Easton MD at [facility] MAIN OR ??? PRO REVISE MEDIAN N/CARPAL TUNNEL SURG Left 04/06/2018 MEDIAN NERVE DECOMPRESSION (CARPAL TUNNEL RELEASE) (WRVU 4.97) performed by Lida Peter MD [facility] MAIN OR ? ? PRO SPLIT GRFT TRUNK, ARM, LEG <100SQCM Left 04/26/2018 SPLIT THICK SKIN GRAFT,100 SQ CM OR LESS, ARMS (WRVU 9.9) performed by Silviano Sparks MD at [facility] MAIN OR ? ? PRO SPLIT GRFT, HEAD, FAC, HAND, FEET <100SQCM N/A 02/20/2016 SPLIT THICKNESS SKIN SPLIT GRAFT,100SQ CM OR LESS, NECK performed by Miguel Angel Moreno MD at [facility] MAIN OR ??? PRO SPLIT GRFT, TRUNK, ARM, LEG EA 100SQCM N/A 04/26/2018 EA.ADDITIONAL 100SQ.CM STSG (WRVU 1.72) performed by Silviano Sparks MD at [facility] MAIN OR ??? PRO UPPER GI ENDOSCOPY, BIOPSY N/A 05/13/2017 EGD WITH BIOPSY (WRVU 2.49) performed by Aditya Barrera MD at [facility] ENDOSCOPY ??? PRO VASCULAR SURGERY PROCEDURE UNLIST Left 11/20/2015 LIGATION\REPAIR AV FISTULA performed by Camilo Ireland MD at [facility] MAIN OR ??? PRO VASCULAR SURGERY PROCEDURE UNLIST Left 11/20/2015 EXCISION VEIN FROM HAND performed by Camilo Ireland MD at [facility] MAIN OR ??? US RENAL TRANSPLANT BIOPSY 12/31/2010 ??? US RENAL TRANSPLANT RIGHT Right 06/04/2018 US Renal Transplant Right 06/04/2018 [facility] RAD ULTRASOUND FH: Family History Problem Relation Age of Onset ??? Pancreatitis Father SH: No tobacco, etoh or drugs ROS: (pertinent positives are in bold, pertinent negatives [...] Temperature Temp: 36.6 ??C (97.9 ??F) Temp: [36.6 ??C (97.9 ??F)] Heart Rate Heart Rate: 61 Heart Rate: [52-67] Blood Pressure BP: 123/85 BP: (123-138)/(85-88) Respiratory Rate Resp: 10 Resp: [10-16] SpO2 SpO2: 94 % SpO2: [94 %-98 %] Art BP BP (Arterial Line): -- Wt Readings from Last 3 Encounters: 05/22/21 95.3 kg (210 lb) 05/02/21 95.3 kg (210 lb) 04/04/21 86.4 kg (190 lb 6.4 oz) Intake/Output Summary (Last 24 hours) at 05/22/2021 1554 Last data filed at 05/22/2021 1457 Gross per 24 hour Intake 500 ml Output 50 ml Net 450 ml Gen: Alert and awake, looks comfortable Skin - No rash HEENT - clear sclera, Mucous membranes dry. Pharynx pink. No nasal discharge. Lymph - No cervical lymphadenopathy. Access: R IJ TDC site clean and ry, nontender Lungs: clear to auscultation w/o wheezes/ rhonchi/ crackles. Heart - Normal S1/S2, no murmur, gallop, or rub. JVP not elevated. Abd - Soft. + BS. No bruit. Non tender. No organomegaly. Ext - Warm. No cyanosis. No LE edema. Pulses ok at feet and ankles. Right thigh incision ressing dry. Palp thrill. Mild edema. Audible bruit. Neuro - No clonus/ asterixis. Muscle strength equal bilaterally. CN II - XII grossly intact b/l. Underlying cog impairment related to remote head trauma with slow responses to questions. LABS: Lab Results Component Value Date WBC 5.6 03/20/2021 RBC 3.53 (L) 03/20/2021 HGB 11.7 (L) 03/20/2021 HCT 35.8 (L) 03/20/2021 MCV 101.4 (H) 03/20/2021 MCH 33.1 (H) 03/20/2021 MCHC 32.7 03/20/2021 PLATELET 190 03/20/2021 RDWCV 13.3 03/20/2021 Lab Results Component Value Date Potassium 7.3 (CRIT) 05/22/2021 Lab Results Component Value Date CALCIUM 8.4 (L) 12/14/2018 Lab Results Component Value Date PHOS 3.6 11/29/2018 Lab Results Component Value Date PTH 52 11/29/2018 Lab Results Component Value Date IRON 70 07/19/2018 Component Value Date/Time SPGRAVITYUA 1.023 07/19/2018 0947 PHUADIP 6.0 07/19/2018 0947 PROTEINUADIP >=500 (A) 07/19/2018 0947 GLUCOSEU 50 (A) 07/19/2018 0947 KETONESUA Negative 07/19/2018 0947 UROBILIUADIP Normal 07/19/2018 0947 BLOODUADIP Negative 07/19/2018 0947 NITRATEUA Negative 07/19/2018 0947 LEUKOESTERUA Negative 07/19/2018 0947 WBCUA 2 07/19/2018 0947 BILIRUBINUA Negative 07/19/2018 0947 Results for CHRISTY AMBROSE ( ) as of 05/22/2021 16:06 Ref. Range 05/22/2021 15:25 Hgb Blood Gas Latest Ref Range: 13.7 - 16.5 g/dL 11.8 (L) pH Rey Latest Ref Range: 7.32 - 7.42 7.42 pCO2 Rey Latest Ref Range: 41 - 51 mmHg 40 (L) pO2 Rey Latest Ref Range: 25 - 40 mmHg 132 (H) HCO3 Rey Latest Units: mmol/L 25.3 BE Rey Latest Units: mmol/L 0.8 O2HB Rey Latest Units: % 97.9 COHB Rey Latest Units: % 0.2 METHB Rey Latest Ref Range: <=1.5 % 0.3 BGas Source Unknown Venous Na Whole Blood Latest Ref Range: 135 - 145 mmol/L 135 K Whole Blood Latest Ref Range: 3.5 - 5.0 mmol/L 5.9 (H) CL Whole Blood Latest Ref Range: 98 - 107 mmol/L 100 ICa Whole Blood Latest Ref Range: 1.15 - 1.33 mmol/L 1.13 (L) Lactate WB Latest Ref Range: 0.5 - 2.2 mmol/L 0.9 Gluc Whole Bld Latest Ref Range: 65 - 199 mg/dL 149 IMPRESSION/ RECOMMENDATIONS: 1. ESRD secondary to IgA HD dependent x years. Hyprkalemia-HD suzette 2. Access:RIJ TDC - working well - Please avoid PICC lines in dialysis patients New right thigh av access patent, will confer with v surgery regarding time to use 3. Electrolytes/Bicarb: High k as above - 4.Anemia: HGB at goal. 5. MBD: recent outpt data favorable 6. BP favorable * Brief Op Note - Tristin Marrero MD - 05/22/2021 3:36 PM EST Brief Operative Note Patient Name: Christy Ambrose : [id number] MR#: [id number] Case Date: 05/22/2021 Surgeon: Surgeon(s) and Role: * Odalis Tong MD - Primary * Tristin Marrero MD - Resident Preoperative diagnosis: ESRD Postoperative diagnosis: ESRD Procedure(s) (LRB): AV FISTULA CREATION, DIRECT HEMODIALYSIS, ANY SITE, EG MADYSON FISTULA LOWER EXTREMITY (WRVU 11.9) (Right) STAB PHLEBECTOMY LISBET VEINS 1 EXTREMITY 10-20 INCISIONS (WRVU 7.71) (Right) Procedures: 1. RIGHT leg stab phlebectomy/excision of vein cluster 2. RIGHT anterior saphenous vein ligation 3. RIGHT SFA-SFV loop AVG (counterclockwise flow of blood in graft) with 4-7mm tapered PTFE Anesthesia: General Findings: RIGHT leg varicosities overlying planned loop graft. Anterior saphenous vein ligated. Excision of varicose vein cluster. SFA and SFV exposed and suitable for AVG. 4-7 tapered PTFE graft used and tunneled laterally on the thigh in a manner such that blood flow is counterclockwise in the loop. Strong thrill in graft and palpable pedal pulses at case completion. Complications: None Estimated Blood Loss: 50 mL Heparin: 8,000 units Protamine: 30 mg Specimens removed during surgery: None Fluids: 500 mL PRBCs: none (See Anesthesia Record/Report for Other Blood Products) Urine Output: (no urine output recorded) Drains: None Disposition: awakened from anesthesia, extubated and taken to the recovery room in a stable condition, having suffered no apparent untoward event. Condition: doing well without problems (Please see the Surgical Encounter Summary for any Implant and Specimen details pertinent to this patient.) Infection Bundle used? Yes Infection present at time of surgery? No Pre-operative IV antibiotics: Ceftriaxone Implants: Implant Name Type Inv. Item Serial No. Ship Officer Lot No. LRB No. Used Action GRAFT VASCULAR [id number] STRAIGHT HEPARIN COATED STANDARD ([id number]) - [id number] IMPLANTS GRAFT VASCULAR [id number] STRAIGHT HEPARIN COATED STANDARD ([id number]) [id number] [employer] Right 1 Implanted GRAFT VASCULAR [id number] STRAIGHT HEPARIN COATED THIN WALL ([id number]) - [id number] IMPLANTS GRAFT VASCULAR [id number] STRAIGHT HEPARIN COATED THIN WALL ([id number]) [id number] [employer] Right 1 Wasted documented in this encounter Plan of Treatment Not on file documented as of this encounter Procedures Procedure Name Priority Date/Time Associated Diagnosis Comments HEMOGRAM Routine 05/23/2021 5:21 AM EST DIFFERENTIAL, AUTOMATED Routine 05/23/2021 5:21 AM EST HC CBC,PLT & AUTO DIFF Routine 05/23/2021 5:21 AM EST HC PHOSPHORUS, SERUM Routine 05/23/2021 5:21 AM EST HC MAGNESIUM, SERUM Routine 05/23/2021 5 :21 AM EST BASIC METABOLIC PANEL Routine 05/23/2021 5:21 AM EST BASIC METABOLIC PANEL Routine 05/22/2021 3:35 PM EST BLOOD GAS VENOUS ([facility]) Routine 05/22/2021 3:25 PM EST POCT GLUCOSE Routine 05/22/2021 3:00 PM EST BLOOD GAS ARTERIAL POC Routine 05/22/2021 2:42 PM EST POCT GLUCOSE Routine 05/22/2021 2:19 PM EST RAPID COVID-19 PCR ([facility]D/[facility]) Routine 05/22/2021 1:55 PM EST BLOOD GAS ARTERIAL POC Routine 05/22/2021 1:30 PM EST HC POTASSIUM STAT 05/22/2021 1:25 PM EST ESRD (end stage renal disease) Pre-op testing BLOOD GAS ARTERIAL POC Routine 05/22/2021 12:30 PM EST Phleb Veins - Extrem - To 20 ([id number]) 05/22/2021 12:11 PM EST ESRD (end stage renal disease) Pre-op testing Anastomosis, Av, Any Site ([id number]) 05/22/2021 12:11 PM EST ESRD (end stage renal disease) Pre-op testing AV FIST CREAT DIRECT HEMODIAL ANY SITE, EG MADYSON FISTULA LOWER EXTR Routine 05/22/2021 10:11 AM EST ESRD (end stage renal disease) Pre-op testing STAB PHLEBECTOMY LISBET VEINS 1 EXTREMITY 10-20 INCISIONS Routine 05/22/2021 10:11 AM EST ESRD (end stage renal disease) Pre-op testing documented in this encounter Results * AVF/Established Access Evaluation (06/06/2021 12:25 PM EST) VB Text Report Department: Vascular Surgery Lab Patient: [id number] (CHRISTY AMBROSE) CPT: 92432 ICD10: N18.6;Z99.2 Referring Physician: CRYSTAL OCHOA ?? Indications: 2 weeks S/p SFA to [...] lab database for comparison. Electronically Signed by: LIDA PETER on 2021-06-09 08:42:39 AM VASCUBASE VB Text Report End of Report VASCUBASE 06/06/2021 12:2 5 PM EST Crystal Ochoa APRN VASCULAR ORDERABLE S VASCUBASE * Differential, Automated (05/23/2021 5:21 AM EST) Neutrophil % 72.5 % [facility] Neutrophil Absolute 6.02 1.70 - 6.10 x10(3)/[facility] Lymph % 16.2 % [facility] Lymphocytes Abs 1.3 0.9 - 3.2 x10(3)/[facility] Monocyte % 10.0 % [facility] Monocyte Abs 0.8 0.3 - 0.9 x10(3)/[facility] Eos % 0.4 % [facility] Eosinophils Abs 0.0 0.0 - 0.4 x10(3)/[facility] Basophil % 0.4 % [facility] Baso Absolute 0.0 0.0 - 0.1 x10(3)/[facility] Immature Gran % 0.50 % [facility] Comment: Immature granulocytes(IG's)percentage and absolute count will include metamyelocytes, myelocytes, and promyelocytes. Blood smears from CBCs yielding IG's will be scanned manually for concordance. If this scan disagrees with the automated IG or if promyelocytes are noted, a manual differential will be performed. Immature Gran Absolute 0.04 0.00 - 0.04 x10(3)/[facility] Blood 05/23/2021 5:21 AM EST 05/23/2021 5:28 AM EST Narrative Resulting Agency Comment Spec In Lab Tristin Marrero MD HEMATOLOGY ORDERABL ES [facility] [place] [address] * (ABNORMAL) Hemogram (05/23/2021 5:21 AM EST) White Blood Cell 8.3 4.0 - 9.5 x10(3)/mc L [facility] Red Blood Cell 3.26(L) 4.58 - 5.54 x10(6)/mc L [facility] Hemoglobin 10.7(L) 13.7 - 16.5 g/dL [facility] Hematocrit 31.6(L) 40.5 - 48.5 % [facility] Mean Cell Volume 96.9(H) 82.9 - 93.1 fL [facility] Mean Cell Hemoglobin 32.8(H) 27.5 - 32.1 pg [facility] Mean Cell Hemoglobin Concentration 33.9 32.0 - 35.7 g/dL [facility] Platelet 143(L) 145 - 357 x10(3)/mc L [facility] RDW Standard Deviation 47.2(H) 36.0 - 45.0 fL [facility] RDW coefficient of variation 13.2 11.4 - 13.8 % [facility] Mean Platelet Volume 8.9 7.6 - 12.9 fL [facility] NRBC% auto 0.0 % [facility] NRBC Absolute 0.000 0.000 - 0.000 x10(3)/mc L [facility] Blood 05/23/2021 5:21 AM EST 05/23/2021 5:28 AM EST Narrative Resulting Agency Comment Spec In Lab Tristin Marrero MD HEMATOLOGY ORDERABL ES Performing Organization Address City/[facility]/ZIP Co de Phone Number [facility] [place] [address] * Phosphorus (05/23/2021 5:21 AM EST) [facility] Phosphorus 3.9 2.5 - 4.5 mg/dL [facility] Blood 05/23/2021 5:21 AM EST 05/23/2021 5:28 AM EST Narrative Resulting Agency Comment Spec In Lab Odalis Tong MD CHEMISTRY ORDER KELLY Performing Organization Address City/[facility]/ZIP Co de Phone Number [facility] [place] [address] * Magnesium (05/23/2021 5:21 AM EST) [facility] Magnesium 0.74 0.69 - 1.07 mmol/L [facility] Blood 05/23/2021 5:21 AM EST 05/23/2021 5:28 AM EST Narrative Resulting Agency Comment Spec In Lab Odalis Tong MD CHEMISTRY ORDER KELLY Performing Organization Address [facility] Co de Phone Number [facility] [place] [address] * (ABNORMAL) Basic Metabolic Panel (non-fasting) (05/23/2021 5:21 AM EST) [facility] Glucose 100 65 - 199 mg/dL [facility] Comment:Diabetes: >=200 mg/d L plus symptoms Blood Urea Nitrogen 23(H) 10 - 20 mg/dL [facility] Creatinine 5.34(H) 0.80 - 1.50 mg/dL [facility] Comment:result rechecked-bm Sodium 135 135 - 145 mmol/L [facility] Potassium 5.1(H) 3.5 - 5.0 mmol/L [facility] Comment: Please note: ??Patients with WBC >100,000 may have falsely elevated Potassium levels. ??For accurate Potassium quantification in these patients send serum separator tube (gold top) for subsequent determinations. ??Contact the Clinical Chemistry Laboratory if there are any questions. Chloride 96(L) 98 - 107 mmol/L [facility] Carbon Dioxide 27 22 - 31 mmol/L [facility] Anion Gap 12 5 - 15 mmol/L [facility] Calcium 8.3(L) 8.5 - 10.5 mg/dL [facility] Est Glomerular Filtration Rate 11(L) >=60 mL/min/1. 73 m?? [facility] Comment: This patient? s estimated glomerular filtration rate (eGFR) is between 11 mL/min/1.73 m2 (patients with less muscle mass per kg body weight) and 13 mL/min/1.73 m2 (patients with more muscle mass [...] and symptoms in addition to eGFR. Blood 05/23/2021 5:21 AM EST 05/23/2021 5:28 AM EST Narrative Resulting Agency Comment Spec In Lab Odalis Tong MD CHEMISTRY ORDER KELLY [facility] [place] [address] * (ABNORMAL) Basic Metabolic Panel (non-fasting) (05/22/2021 3:35 PM EST) Glucose 129 65 - 199 mg/dL [facility] Comment:Diabetes: >=200 mg/d L plus symptoms Blood Urea Nitrogen 30(H) 10 - 20 mg/dL [facility] Creatinine 6.52(H) 0.80 - 1.50 mg/dL [facility] Sodium 137 135 - 145 mmol/L [facility] Potassium 6.0(H) 3.5 - 5.0 mmol/L [facility] Comment: result rechecked-nb Please note: ??Patients with WBC >100,000 may have falsely elevated Potassium levels. ??For accurate Potassium quantification in these patients send serum separator tube (gold top) for subsequent determinations. ??Contact the Clinical Chemistry Laboratory if there are any questions. Please note: ??Patients with WBC >100,000 may have falsely elevated Potassium levels. ??For accurate Potassium quantification in these patients send serum separator tube (gold top) for subsequent determinations. ??Contact the Clinical Chemistry Laboratory if there are any questions. Corrected from 6.0 mMol/L [HI] on 05/22/21 18:10:36 EST by Rakesh Mcneal Chloride 100 98 - 107 mmol/L [facility] Carbon Dioxide 27 22 - 31 mmol/L [facility] Anion Gap 10 5 - 15 mmol/L [facility] Calcium 8.9 8.5 - 10.5 mg/dL [facility] Est Glomerular Filtration Rate 9(L) >=60 mL/min/1. 73 m?? [facility] Comment: This patient? s estimated glomerular filtration rate (eGFR) is between 9 mL/min/1.73 m2 (patients with less muscle mass per kg body weight) and 10 mL/min/1.73 m2 (patients with more muscle mass [...] and symptoms in addition to eGFR. Blood Venous Draw / Unknown 05/22/2021 3:35 PM EST 05/22/2021 4:05 PM EST Narrative Resulting Agency Comment Spec In Lab Bowen Jessica MD CHEMISTRY ORDERA BLES [facility] Organization Address City/State/ZIP Co de Phone Number [facility] [place] [address] * (ABNORMAL) Blood Gas Venous (05/22/2021 3:25 PM EST) pH, Venous 7.42 7.32 - 7.42 [facility] PCO2, Venous 40(L) 41 - 51 mmHg [facility] PO2, Venous 132(H) 25 - 40 mmHg [facility] Bicarbonate, Venous 25.3 mmol/L [facility] Base Excess, Venous 0.8 mmol/L [facility] Hgb Blood Gas 11.8(L) 13.7 - 16.5 g/dL [facility] Oxyhemoglobin, Venous 97.9 % [facility] Carboxyhemoglob in, Venous 0.2 % [facility] Comment: Nonsmokers: 0.5-1.5% COHB Smokers: Variable, but usually less than 10% Toxic: 20-30% COHB Lethal: Greater than 60% COHB Methemoglobin, Venous 0.3 <=1.5 % [facility] Na Whole Blood 135 135 - 145 mmol/L [facility] K Whole Blood 5.9(H) 3.5 - 5.0 mmol/L [facility] Comment: Please note: Patients with WBC >100,000 may have falsely elevated Potassium levels. Contact the Clinical Chemistry Laboratory if there are any questions. ICa Whole Blood 1.13(L) 1.15 - 1.33 mmol/L [facility] Comment: Note: ??Total bilirubin higher than 20 mg/dL may lead to falsely low ionized calcium. CL Whole Blood 100 98 - 107 mmol/L [facility] Gluc Whole Bld 149 65 - 199 mg/dL [facility] Comment:Diabetes: >=200 mg/d L plus symptoms Lactate WB 0.9 0.5 - 2.2 mmol/L [facility] Blood Gas Source Venous [facility] Blood Venous Draw / Unknown 05/22/2021 3:25 PM EST 05/22/2021 3:57 PM EST Narrative Resulting Agency Comment Spec In Lab Odalis Tong MD CHEMISTRY ORDER KELLY Performing Organization Address City/[facility] Co de Phone Number [facility] [place] [address] * POCT Glucose (05/22/2021 3:00 PM EST) Glucose, POC 153 65 - 199 mg/dL [facility] Comment: Supplemental ranges: <140 mg/dL before meals <180 mg/dL all other times of the day Blood 05/22/2021 3:00 PM EST 05/22/2021 3:00 PM EST Odalis Tong MD POINT OF CARE T EST ORDERABLES Performing Organization Address [facility] Phone Number [facility] [place] [address] * (ABNORMAL) BLOOD GAS 2 ARTERIAL (05/22/2021 2:42 PM EST) [facility] Signature pH, Arterial 7.49(H) 7.35 - 7.45 [facility] PCO2, Arterial 34(L) 35 - 45 mmHg [facility] PO2, Arterial 173(H) 85 - 104 mmHg [facility] Bicarbonate, Arterial 25.6 20.0 - 26.0 mmol/L [facility] Base Excess, Arterial 2.2 -3.0 - 3.0 mmol/L [facility] Hgb Blood Gas 10.5(L) 13.7 - 16.5 g/dL [facility] Oxyhemoglobin, Arterial 98.4(H) 94.0 - 97.0 % [facility] Carboxyhemoglobi n, Arterial 0.3 % [facility] Comment: Nonsmokers: 0.5-1.5% COHB Smokers: Variable, but usually less than 10% Toxic: 20-30% COHB Lethal: Greater than 60% COHB Methemoglobin, Arterial 0.3 <=1.5 % [facility] Na Whole Blood 132(L) 135 - 145 mmol/L [facility] K Whole Blood 6.8(Criti constance) 3.5 - 5.0 mmol/L [facility] Comment: Noted by telegraphic instrument supervisor. Critical notified to Padmini Felipe by telegraphic instrument supervisor immediately following run time. Please note: Patients with WBC >100,000 may have falsely elevated Potassium levels. Contact the Clinical Chemistry Laboratory if there are any questions. ICa Whole Blood 1.05(L) 1.15 - 1.33 mmol/L [facility] Comment: Note: ??Total bilirubin higher than 20 mg/dL may lead to falsely low ionized calcium. CL Whole Blood 98 98 - 107 mmol/L [facility] Gluc Whole Bld 146 65 - 199 mg/dL [facility] Comment:Diabetes: >=200 mg/d L plus symptoms. Lactate WB 0.8 0.5 - 2.2 mmol/L [facility] FIO2 Art 50 % [facility] PF Ratio Art 346 [facility] Blood 05/22/2021 2:42 PM EST 05/22/2021 2:42 PM EST Odalis Tong MD POINT OF CARE T EST ORDERABLES Performing Organization Address [facility] Co de Phone Number [facility] [place] [address] * POCT Glucose (05/22/2021 2:19 PM EST) Glucose, POC 179 65 - 199 mg/dL [facility] Comment: Supplemental ranges: <140 mg/dL before meals <180 mg/dL all other times of the day Blood 05/22/2021 2:19 PM EST 05/22/2021 2:19 PM EST Odalis Tong MD POINT OF CARE T EST ORDERABLES Performing Organization Address City/[facility] Co de Phone Number [facility] [place] [address] * COVID-19 PCR (05/22/2021 1:55 PM EST) SARS-CoV-2 RNA (Rapid) Not Detected Not Detected [facility] Comment: This result should be interpreted in combination with the clinical observations, patient history and epidemiological information. For testing of asymptomatic individuals, assay performance characteristics and clinical utility have not been evaluated. Testing for SARS-CoV-2 (Severe acute respiratory syndrome coronavirus 2, formerly known as 2019 novel coronavirus or 2019-nCoV) to aid in the diagnosis of COVID-19 is performed using the Simplexa COVID-19 Direct Assay by [employer] as authorized by the FDA issued Emergency Use Authorization (EUA). This assay is intended for In-vitro Diagnostic (IVD) use with nasopharyngeal swabs collected from individuals meeting the CDC criteria for testing. The assay is performed based on the instructions for use and additional guidance provided by the FDA. Testing is performed in the Microbiology Laboratory within the Department of Pathology and Laboratory Medicine at [facility], certified under the Clinical Laboratory Improvement Amendments of 1988 (CLIA), 42 U.S.C. section 263a, to perform high complexity tests. Assay performance has been verified according to clinical laboratory regulatory requirements. Test results are provided above. A result of Not Detected indicates that the viral RNA target is not present but does not preclude SARS-CoV-2 infection. False negative results may occur if a specimen is improperly collected, transported or handled; if amplification inhibitors are present; or if inadequate numbers of viral particles are present in the specimen. A result of Detected suggests a current or recent infection and the patient is presumed to be infected. Positive and negative predictive values for this test are highly dependent on disease prevalence. A result of Invalid indicates the inability to conclusively determine the presence or absence of SARS-CoV-2 RNA in the sample which can be due to a variety of factors. Recollection is recommended in the case of an invalid result. CDC COVID-19 criteria for testing on human specimens and clinical management guidance information are available at the CDC Coronavirus Disease 2019 (COVID-19) webpage under Information for Healthcare Professionals (https://www.cdc.gov/coronavirus/2019-ncov/hcp/index.html). Additional information about this and other EUA tests can be found in provider and patient fact sheets at the following FDA website: https://www.fda.gov/medical-devices/ybvizmszdgw-rucbuab-5210-mykvy-27-fikdssloi- use-a upkmxykebbgzb-rqibjzw-kihwmgx/hxmft-qecnnidyihy-vqik SARS-CoV-2 Source [employer] Swab MA RY [facility] Nasopharyngeal Swab 05/22/20 21 1:55 PM EST 05/22/2021 1:55 PM EST Comment:Symptoms->Surveillan ce Narrative Resulting Agency Comment Spec In Lab Odalis Tong MD MICROBIOLOGY - GENERAL ORDERABLES [facility] [place] [address] * (ABNORMAL) BLOOD GAS 2 ARTERIAL (05/22/2021 1:30 PM EST) pH, Arterial 7.48(H) 7.35 - 7.45 [facility] PCO2, Arterial 39 35 - 45 mmHg [facility] PO2, Arterial 185(H) 85 - 104 mmHg [facility] Bicarbonate, Arterial 28.5(H) 20.0 - 26.0 mmol/L [facility] Base Excess, Arterial 4.5(H) -3.0 - 3.0 mmol/L [facility] Hgb Blood Gas 10.6(L) 13.7 - 16.5 g/dL [facility] Oxyhemoglobin, Arterial 98.5(H) 94.0 - 97.0 % [facility] Carboxyhemoglob in, Arterial 0.3 % [facility] Comment: Nonsmokers: 0.5-1.5% COHB Smokers: Variable, but usually less than 10% Toxic: 20-30% COHB Lethal: Greater than 60% COHB Methemoglobin, Arterial 0.3 <=1.5 % [facility] Na Whole Blood 134(L) 135 - 145 mmol/L [facility] K Whole Blood 7.1(Criti constance) 3.5 - 5.0 mmol/L [facility] Comment: Noted by telegraphic instrument supervisor. Critical notified to Padmini Felipe by telegraphic instrument supervisor immediately following run time. Please note: Patients with WBC >100,000 may have falsely elevated Potassium levels. Contact the Clinical Chemistry Laboratory if there are any questions. ICa Whole Blood 1.03(L) 1.15 - 1.33 mmol/L [facility] Comment: Note: ??Total bilirubin higher than 20 mg/dL may lead to falsely low ionized calcium. CL Whole Blood 98 98 - 107 mmol/L [facility] Gluc Whole Bld 99 65 - 199 mg/dL [facility] Comment:Diabetes: >=200 mg/d L plus symptoms. Lactate WB 0.7 0.5 - 2.2 mmol/L [facility] [facility] FIO2 Art 61 % [facility] Flow Art 0.7 LPM [facility] PF Ratio Art 303 [facility] Temp Art 35.0 Celsius [facility] Blood 05/22/2021 1:30 PM EST 05/22/2021 1:30 PM EST Odalis Tong MD POINT OF CARE T EST ORDERABLES Performing Organization Address City/State/[facility] Co de Phone Number [facility] [place] [address] * (ABNORMAL) Potassium (05/22/2021 1:25 PM EST) Potassium 7.3(Criti constance) 3.5 - 5.0 mmol/L [facility] Comment: Called by: , Read back [...] Resulting Agency Comment Spec In Lab Odalis Tong MD CHEMISTRY ORDER KELLY [facility] [place] [address] * (ABNORMAL) BLOOD GAS 2 ARTERIAL (05/22/2021 12:30 PM EST) pH, Arterial 7.36 7.35 - 7.45 [facility] PCO2, Arterial 57(H) 35 - 45 mmHg [facility] PO2, Arterial 38(Critica l) 85 - 104 mmHg [facility] Comment: Not noted by telegraphic instrument supervisor. Critical notified to Noted by telegraphic instrument supervisor. Critical notified to Padmini Felipe by telegraphic instrument supervisor immediately following run time. Bicarbonate, Arterial 31.8(H) 20.0 - 26.0 mmol/L [facility] Base Excess, Arterial 6.4(H) -3.0 - 3.0 mmol/L [facility] Hgb Blood Gas 12.3(L) 13.7 - 16.5 g/dL [facility] Oxyhemoglobin, Arterial 64.1(L) 94.0 - 97.0 % [facility] Carboxyhemoglob in, Arterial 0.9 % [facility] Comment: Nonsmokers: 0.5-1.5% COHB Smokers: Variable, but usually less than 10% Toxic: 20-30% COHB Lethal: Greater than 60% COHB Methemoglobin, Arterial 0.3 <=1.5 % [facility] Na Whole Blood 137 135 - 145 mmol/L [facility] K Whole Blood 6.7(Critic al) 3.5 - 5.0 mmol/L [facility] Comment: Please note: Patients with WBC >100,000 may have falsely elevated Potassium levels. Contact the Clinical Chemistry Laboratory if there are any questions. Not noted by telegraphic instrument supervisor. Critical notified to Noted by telegraphic instrument supervisor. Critical notified to Padmini Felipe by telegraphic instrument supervisor immediately following run time. ICa Whole Blood 1.07(L) 1.15 - 1.33 mmol/L [facility] Comment: Note: ??Total bilirubin higher than 20 mg/dL may lead to falsely low ionized calcium. CL Whole Blood 98 98 - 107 mmol/L [facility] Gluc Whole Bld 90 65 - 199 mg/dL [facility] Comment:Diabetes: >=200 mg/d L plus symptoms. Lactate WB 1.4 0.5 - 2.2 mmol/L [facility] Blood 05/22/2021 12:3 0 PM EST 05/22/2021 12:30 PM EST Odalis Tong MD POINT OF CARE T EST ORDERABLES [facility] [place] [address] documented in this encounter Visit Diagnoses Diagnosis ESRD (end stage renal disease) End stage renal disease Pre-op testing Preoperative examination, unspecified ESRD (end stage renal disease) on dialysis End stage renal disease ESRD (end stage renal disease) End stage renal disease Pre-op testing Preoperative examination, unspecified documented in this encounter Admitting Diagnoses Diagnosis ESRD (end stage renal disease) on dialysis End stage renal disease documented in this encounter Administered Medications Inactive Administered Medications - up to 3 most recent administrations Medication Order MAR Action Action Date Dose Rate Site acetaminophen (Tylenol) tablet 1,000 mg 1,000 mg, Oral, EVERY 6 HOURS, First dose on Mariza 05/22/21 at 1615, Until Discontinued, Maximum dose of acetaminophen is 4000 mg from all sources in 24 hours. When ordered for pain, acetaminophen should be given even when other ordered pain medications are indicated. , Routine Given 05/22/2021 9:41 PM EST 1,000 mg Given 05/22/2021 3:58 PM EST 1,000 mg allopurinoL (Zyloprim) tablet 100 mg 100 mg, Oral, DAILY, First dose on 05/23/21 at 0900, Until Discontinued, Routine Given 05/23/2021 8:59 AM EST 100 mg aspirin EC tablet 81 mg 81 mg, Oral, DAILY, First dose on Wed05/23/21 at 0900, Until Discontinued, Routine Given 05/23/2021 8:58 AM EST 81 mg cefTRIAXone (Rocephin) 2 g vial attach to sodium chloride 0.9% 50 mL Mini-Bag Plus 2 g, Intravenous, EVERY 24 HOURS, 1 dose, First dose on Wed05/23/21 at 0700, Administer over 30 Minutes, Indication for (Active or Suspected): Prophylaxis New Bag 05/23/2021 6:34 AM EST 2 g 100 mL/ hr heparin (porcine) (1,000 units/mL) injection 1,000-10,000 Units 1,000-10,000 Units, Intercatheter, ONCE IN DIALYSIS PRN, 1 dose, Starting on Wed05/22/21 at 1616, Until Wed05/23/21 at 1233, Line Care, Per Protocol, Catheter lock use catheter specified fill volume per dialysis protocol. For use in Dialysis only. Procedure ID: 660 (Hemodialysis CVAD Procedure - Care and Maintenance) in Clinical Policies., Routine Given 05/23/2021 12:33 PM EST 4,000 Units heparin (porcine) (1,000 units/mL) injection 1,000-10,000 Units 1,000-10,000 Units, Intercatheter, ONCE IN DIALYSIS PRN, 1 dose, Starting on Wed05/23/21 at 0838, Until Wed05/23/21 at 1721, Line Care, Per Protocol, Catheter lock use catheter specified fill volume per dialysis protocol. For use in Dialysis only. Procedure ID: 660 (Hemodialysis CVAD Procedure - Care and Maintenance) in Clinical Policies., Dialysis (Intra-Procedure), Routine levETIRAcetam (Keppra) tablet 500 mg 500 mg, Oral, 2 TIMES DAILY, First dose on Wed05/22/21 at 2200, Until Discontinued, Routine Given 05/23/2021 8:58 AM EST 500 mg Given 05/22/2021 9:41 PM EST 500 mg levothyroxine (Synthroid) tablet 100 mcg 100 mcg, Oral, DAILY, First dose on Wed05/23/21 at 0700, Until Discontinued, Routine Given 05/23/2021 6:34 AM EST 100 mcg ondansetron (pf) (Zofran) (2 mg/mL) injection 4-8 mg 4-8 mg, Intravenous, EVERY 8 HOURS PRN, Starting on Wed05/22/21 at 2104, Until Wed05/23/21 at 1721, Nausea, Start with 4mg and if ineffective in 30 minutes, give an additional 4mg If multiple antiemetics are ordered, give ondansetron first. ondansetron (Zofran) tablet 4-8 mg 4-8 mg, Oral, EVERY 8 HOURS PRN, Starting on Wed05/22/21 at 2104, Until Wed05/23/21 at 1721, Nausea, Vomiting, If multiple antiemetics are ordered, use ondansetron first. PO Preferred. If patient unable to take PO, may give IV if ordered. Start with 4mg and if ineffective in 45 minutes, give an additional 4mg. If unable to take PO, may give IV., Routine pantoprazole EC (Protonix) tablet 20 mg 20 mg, Oral, 2 TIMES DAILY, First dose on Wed05/22/21 at 2200, Until Discontinued, DO NOT CRUSH OR OPEN Given 05/23/2021 1:26 PM EST 20 mg Given 05/22/2021 9:42 PM EST 20 mg polyethylene glycoL (Miralax) packet 17 g 17 g, Oral, DAILY, First dose on Wed05/23/21 at 0900, Until Discontinued, Routine Given 05/23/2021 1:26 PM EST 17 g senna-docusate (Pericolace) 8.6-50 mg per tablet 2 tablet 2 tablet, Oral, 2 TIMES DAILY, First dose on Wed05/22/21 at 2200, Until Discontinued, Routine Given 05/23/2021 8:59 AM EST 2 tablets sodium chloride 0.9 % (flush) (BD PosiFlush Normal Saline 0.9) flush 5 mL 5 mL, Intravenous, 2 TIMES DAILY, First dose on Wed05/22/21 at 2200, Until Discontinued, Routine Given 05/22/2021 10:00 PM EST 5 mLs tacrolimus (Prograf) capsule 1 mg 1 mg, Oral, 2 TIMES DAILY, First dose on Wed05/22/21 at 2200, Until Discontinued, DO NOT SPLIT, CRUSH OR OPEN, Routine Given 05/23/2021 1:26 PM EST 1 m g Given 05/22/2021 9:41 PM EST 1 mg documented in this encounter Active and Recently Administered Medications Times are shown in EST. Scheduled Medication Order 05/21/2021 05/22/2021 05/23/2021 acetaminophen (Tylenol) tablet 1,000 mg 1,000 mg, Oral, EVERY 6 HOURS, First dose on Mariza 05/22/21 at 1615, Until Discontinued, Maximum dose of acetaminophen is 4000 mg from all sources in 24 hours. When ordered for pain, acetaminophen should be given even when other ordered pain medications are indicated. , Routine 1558 (Given - Provider: Erwin Álvarez, SAVANNA)2141 (Given - Provider: Peter Ye, RN) 0415 (Not Given - Provider: Peter Ye RN - Reason: Patient/family refused)1015 (Not Given - Provider: Anabella De Los Santos RN - Reason: Patient/family refused) allopurinoL (Zyloprim) tablet 100 mg 100 mg, Oral, DAILY, First dose on Wed05/23/21 at 0900, Until Discontinued, Routine 0859 (Given - Provid er: Anabella De Los Santos RN) aspirin EC tablet 81 mg 81 mg, Oral, DAILY, First dose on Wed05/23/21 at 0900, Until Discontinued, Routine 0858 (Given - Provid er: Anabella De Los Santos RN) carvediloL (Coreg) tablet 6.25 mg 6.25 mg, Oral, 2 TIMES DAILY WITH MEALS, First dose on Wed05/23/21 at 0800, Until Discontinued, Routine 0800 (Due) ceFAZolin (Ancef) 2 g in dextrose 5% 100 mL infusion (COMPLETED) 2 g, Intravenous, [employer] TO O.R., 1 dose, On Mariza 05/22/21 at 1045, Administer over 30 Minutes, Redose after 4 hours., Day of Surgery (Day of Procedure), Indication for (Active or Suspected): Prophylaxis 1229 (Given - Provider: Karin Keating CRNA) cefTRIAXone (Rocephin) 2 g vial attach to sodium chloride 0.9% 50 mL Mini-Bag Plus (COMPLETED) 2 g, Intravenous, EVERY 24 HOURS, 1 dose, First dose on Wed05/23/21 at 0700, Administer over 30 Minutes, Indication for (Active or Suspected): Prophylaxis 0634 (New Bag - Provider: Peter Ye RN)0704 (Stopped - Provider: Peter Ye RN) levETIRAcetam (Keppra) tablet 500 mg 500 mg, Oral, 2 TIMES DAILY, First dose on Wed05/22/21 at 2200, Until Discontinued, Routine 214 (Given - Provider: Peter Ye RN) 0858 (Given - Provider: Anabella De Los Santos RN) levothyroxine (Synthroid) tablet 100 mcg 100 mcg, Oral, DAILY, First dose on Wed05/23/21 at 0700, Until Discontinued, Routine 0634 (Given - Provid er: Peter Ye RN) losartan (Cozaar) tablet 50 mg 50 mg, Oral, EVERY MORNING, First dose on Wed05/23/21 at 0700, Until Discontinued, Routine 0800 (Due - Provider : Peter Ye RN) pantoprazole EC (Protonix) tablet 20 mg 20 mg, Oral, 2 TIMES DAILY, First dose on Wed05/22/21 at 2200, Until Discontinued, DO NOT CRUSH OR OPEN 2141 (Given - Provider: Peter Ye RN) 1326 (Given - Provider: Anabella De Los Santos RN) polyethylene glycoL (Miralax) packet 17 g 17 g, Oral, DAILY, First dose on Wed05/23/21 at 0900, Until Discontinued, Routine 1326 (Given - Provid er: Anabella De Los Santos RN) senna-docusate (Pericolace) 8.6-50 mg per tablet 2 tablet 2 tablet, Oral, 2 TIMES DAILY, First dose on Wed05/22/21 at 2200, Until Discontinued, Routine 214 (Not Given - Provider: Peter Ye RN - Reason: Patient/family refused) 0859 (Given - Provider: Anabella De Los Santos RN) sevelamer carbonate (Renvela) tablet 800 mg 800 mg, Oral, 3 TIMES DAILY WITH MEALS, First dose on Wed05/23/21 at 0800, Until Discontinued, DO NOT CRUSH OR OPEN, Routine 0800 (Due)1200 (Not Given - Provider: Anabella De Los Santos RN - Reason: See comment - Comment: pt not eating lunch) sodium chloride 0.9 % (flush) (BD PosiFlush Normal Saline 0.9) flush 5 mL 5 mL, Intravenous, 2 TIMES DAILY, First dose on Wed05/22/21 at 2200, Until Discontinued, Routine 220 (Given - Provider: Peter Ye RN) 1328 (Not Given - Provider: Anabella De Los Santos RN - Reason: See comment - Comment: pt d/c) tacrolimus (Prograf) capsule 1 mg 1 mg, Oral, 2 TIMES DAILY, First dose on Wed05/22/21 at 2200, Until Discontinued, DO NOT SPLIT, CRUSH OR OPEN, Routine 2140 (Given - Provider: Peter Ye RN) 1326 (Given - Provider: Anabella De Los Santos RN) PRN Medication Order 05/21/2021 05/22/2021 05/23/2021 bisacodyL (Dulcolax) suppository 10 mg 10 mg, Rectal, DAILY PRN, Starting on Wed05/22/21 at 2104, Until Wed05/23/21 at 1721, Constipation, Routine guaiFENesin ER (Mucinex) tablet 600 mg 600 mg, Oral, 2 TIMES DAILY PRN, Starting on Wed05/22/21 at 2104, Until Wed05/23/21 at 1721, cough, congestions, DO NOT CRUSH OR OPEN, Routine heparin (porcine) (1,000 units/mL) injection 1,000-10,000 Units (COMPLETED) 1,000-10,000 Units, Intercatheter, ONCE IN DIALYSIS PRN, 1 dose, Starting on Wed05/22/21 at 1616, Until Wed05/23/21 at 1233, Line Care, Per Protocol, Catheter lock use catheter specified fill volume per dialysis protocol. For use in Dialysis only. Procedure ID: 660 (Hemodialysis CVAD Procedure - Care and Maintenance) in Clinical Policies., Routine 1233 (Given - Provid er: Vee Mcfarland RN) heparin (porcine) (1,000 units/mL) injection 1,000-10,000 Units 1,000-10,000 Units, Intercatheter, ONCE IN DIALYSIS PRN, 1 dose, Starting on Wed05/23/21 at 0838, Until Wed05/23/21 at 1721, Line Care, Per Protocol, Catheter lock use catheter specified fill volume per dialysis protocol. For use in Dialysis only. Procedure ID: 660 (Hemodialysis CVAD Procedure - Care and Maintenance) in Clinical Policies., Dialysis (Intra-Procedure), Routine lidocaine (Xylocaine) 1% (10 mg/mL) injection 3 mg 3 mg (0.3 mL), Subcutaneous, ONCE PRN, 1 dose, Starting on Mariza 05/22/21 at 2104, Until Wed05/23/21 at 1721, for discomfort with PIV insertion, Routine ondansetron (pf) (Zofran) (2 mg/mL) injection 4-8 mg(Linked Group 1) 4-8 mg, Intravenous, EVERY 8 HOURS PRN, Starting on Mariza 05/22/21 at 2104, Until Wed05/23/21 at 1721, Nausea, Start with 4mg and if ineffective in 30 minutes, give an additional 4mg If multiple antiemetics are ordered, give ondansetron first. ondansetron (Zofran) tablet 4-8 mg(Linked Group 1) 4-8 mg, Oral, EVERY 8 HOURS PRN, Starting on Mariza 05/22/21 at 2104, Until Wed05/23/21 at 1721, Nausea, Vomiting, If multiple antiemetics are ordered, use ondansetron first. PO Preferred. If patient unable to take PO, may give IV if ordered. Start with 4mg and if ineffective in 45 minutes, give an additional 4mg. If unable to take PO, may give IV., Routine sodium chloride 0.9 % (flush) (BD PosiFlush Normal Saline 0.9) flush 5-20 mL 5-20 mL, Intravenous, EVERY 1 MIN PRN, Starting on Mariza 05/22/21 at 2104, Until Wed05/23/21 at 1721, flush, Flush pertains to all indwelling lines. Flush per protocol found in the job aid using the link provided on this medication record., Routine Linked Groups Order Group 1: ondansetron (Zofran) tablet 4-8 mgJump to med 4-8 mg, Oral, EVERY 8 HOURS PRN, Starting on Mariza 05/22/21 at 2104, Until Wed05/23/21 at 1721, Nausea, Vomiting, If multiple antiemetics are ordered, use ondansetron first. PO Preferred. If patient unable to take PO, may give IV if ordered. Start with 4mg and if ineffective in 45 minutes, give an additional 4mg. If unable to take PO, may give IV., Routine Or ondansetron (pf) (Zofran) (2 mg/mL) injection 4-8 mgJump to med 4-8 mg, Intravenous, EVERY 8 HOURS PRN, Starting on Mariza 05/22/21 at 2104, Until Wed05/23/21 at 1721, Nausea, Start with 4mg and if ineffective in 30 minutes, give an additional 4mg If multiple antiemetics are ordered, give ondansetron first. documented in this encounter Care Teams Photogrammetric Compilation Specialist Relationship Specialty Start Date End Date Carroll Fuentes DO [address] [place] [address] PCP - General 09/23/11 10/20/22 documented as of this encounter
--- OUTSIDE RECORDS SUMMARY | 2024-04-22 10:53 | XMS_ITS | Encounter Summary ---
Author Organization [facility] Address [facility] [place] [address] Care Team Providers Care Tennis Ball Cover Cementer Name Role Phone AlfredoCarroll geiger Primary Care Provider [phone] Reason for Visit * Auth/Cert Specialty Diagnoses / Procedures Referred By Shashi ko Referred To Contact Diagnoses ESRD (end stage renal disease) ESRD Procedures PRO CREAT AV FISTULA, NON-AUTOGENOUS GRAFT PLACEMENT, AV HEMODIALYSIS GRAFT, SYNTHETIC GRAFT, UPPER EXTREMITY (WRVU 12.03) Referral ID Status Reason Start Date Expiration Date Visits Re quested Visits Authorized [id number] 1 1 Encounter Details Date Type Department Care Team (Late st Contact Info) Description 04/03/2021 7:30 AM EDT - 04/03/2021 11:20 AM EDT [place] [id number] Odalis Tong MD [facility] [place] [address] PLACEMENT, AV HEMODIALYSIS GRAFT, SYNTHETIC GRAFT, UPPER EXTREMITY (WRVU 12.03) Social History Tobacco Use Types Packs/Day Years [...] Sign Reading Time Taken Comments Blood Pressure 110/72 04/03/2021 7:10 AM EDT Pulse 50 04/03/2021 7:10 AM EDT Temperature 36.3 ??C (97.3 ??F) 04/03/2021 7:10 AM ED T Respiratory Rate 16 04/03/2021 7:10 AM EDT Oxygen Saturation 96% 04/03/2021 7:10 AM EDT Inhaled Oxygen Concentration - - Weight 86 kg (189 lb 9.6 oz) 04/03/2021 7:10 AM EDT Height 177.8 cm (5' 10) 04/03/2021 7:10 AM EDT Body Mass Index 27.32 04/03/2021 7:10 AM EDT documented in this encounter Discharge Summaries * Nilda Minaya APRN - 04/04/2021 1:04 PM EDT Inpatient - Discharge Summary Patient Name: Adama Ram Patient Age: 60 y.o. Birthdate: 1960 Admit date: 04/03/2021 Discharge date and time: 04/04/2021 Attending Physician: Odalis Tong MD Discharging Provider: Nilda Minaya APRN Discharging Service: Vascular Surgery Operations/Major Procedures: 04/03/2021: LEFT brachial-axillary arteriovenous graft placement Active Hospital Problems: Active Hospital Problems Diagnosis ??? ESRD (end stage renal disease) Resolved Hospital Problems No resolved problems to display. Active Non Hospital Problems: Active Non-Hospital Problems Diagnosis ??? End stage chronic kidney disease ??? Acute renal failure ??? Failed kidney [...] GFR 15-29 ml/min ??? 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 prison current use of immunosuppressive drug ??? H/O kidney transplant ??? Encounter for long-term (current) use of other medications ??? Aftercare following organ transplant ??? Squamous cell carcinoma of skin of other parts of face ??? Atopic rhinitis ??? Injury of head ??? Non-neoplastic nevus ??? Varicose veins of lower extremities ??? Anticoagulated on Coumadin ??? Rosacea ??? Acne rosacea ??? Colon polyp ??? BCC (basal cell carcinoma of skin) ??? IgA nephropathy ??? Gout ??? Hypertension ??? Left leg DVT ??? Epilepsy History of Presentation: 60 y.o. male with history of HTN, HLD, ESRD s/p transplant in 2003 now with graft failure and on HD. Previous history of multiple access procedures on the LUE and more recently R brachioaxillary graft in 2019. This occluded in December 2020 and could not be salvaged. Now received HD through R IJ catheter. Presents today for LUE AVG. Patient denies recent changes to his health. Denies recent CP, SOB, TORRES, PND, orthopnea. Patient ismaintained on daily ASA. Hospital Course: In surgery, LEFT axillary vein exposed in area relatively free of scar. LEFT brachial artery exposed and calcified but suitable for arterial anastomosis. 4-7mm tapered PTFE graft tunneled laterally on the arm. After initial anastomosis very weak thrill noted. Arterial anastomosis taken down and revised with several tacking sutures to repair focal dissection at the anastomosis. Strong thrill in outflow vein thereafter. Superficial, likely sensory, nerve noted at the axillary exposure which was repaired with interrupted 8-0 nylon sutures. Radial signal at case completion.??Pt admitted for overnight observation. Pt attended [facility] in AM. Pt's recovery went well with good PO intake, adequate baseline output andminimal pain. Pt's left arm dressing remains c/d/i, anila wrap used for hematoma compression postop. Pt otherwise returns to baseline level of independent function and is medically cleared back to [facility] rehab, where pt resides. He will f/u in 1 month with AVG duplex. Day of discharge exam: BP 115/57 (BP Location (NBP): Right arm) Pulse 63 Temp 36.3 ??C (97.3 ??F) Resp 18 Ht 177.8cm (5' 10) Wt 86.4 kg (190 lb 6.4 oz) SpO2 97% BMI 27.32 kg/m?? General: NAD, resting comfortably HEENT: EOM intact CVS: Regular rate Pulm: Breathing comfortably on room air Abd: soft, non tender, non distended Ext: LUE: skin warm and pink. Overlying anila bandage without evidence of saturation. Radial and graft signals present. Neuro: CN 2-12 grossly intact, nonfocal, moving all extremities. Important Studies and Lab Data: Labs: Lab Results Component Value Date WBC 5.6 03/20/2021 RBC 3.53 (L) 03/20/2021 HGB 11.7 (L) 03/20/2021 HCT 35.8 (L) 03/20/2021 MCV 101.4 (H) 03/20/2021 MCH 33.1 (H) 03/20/2021 MCHC 32.7 03/20/2021 PLATELET 190 03/20/2021 RDWCV 13.3 03/20/2021 Recent Labs 04/03/21 0655 K 5.0 Discharge Condition: Good Discharge to: Benjie Pryor (Resident) Future Appointments and Orders Future Appointments and Orders Future Appointments Provider Department Dept Phone 05/02/2021 10:00 AM Nicolás Marte Vascular Lab at [facility] Arrive at: Marketing Campaign Analyst Area 05/02/2021 11:45 AM Odalis Tong MD Vascular Surgery at [facility] Arrive at: Marketing Campaign Analyst Area 3V [phone] Future Orders Complete By Expires AVF/Established Access Evaluation [VAS61 Custom] 05/04/2021 04/04/2022 Process Instructions: There is no in-house vascular liaison inspection laboratory assistant available on weeknights (5pm-8am), weekends, or holidays. IF THIS IS A REQUEST FOR AN EMERGENT STUDY DURING THOSE HOURS, please have the senior provider responsible for the patient page the Vascular Surgery Fellow/Senior Resident beauty consultant to discuss options. Scheduling Instructions: Questions: Laterality: Left Which extremity?: Upper Indication for study/signs & symptoms: LUE AV graft placement Question to be answered: patency, flow Preferred location?: [facility] Clinics Anticoagulation & Antiplatelet: Anticoagulation: None indicated Antiplatelet: Agent: ASA 81mg PO daily Indication: ASCVD risk Intended Duration: Long-term For questions regarding these medications, please contact: PCP Discharge Medications: Your Medications Continued medications, unchanged Dose Details acetaminophen 500 mg Tab Commonly known as: Tylenol Take 2 tablets by mouth every 6 hours. 1,000 mg Quantity: 30 tablet Refills: 1 allopurinoL 100 mg Tab Commonly known as: Zyloprim Take 1 tablet by mouth daily. 100 mg Quantity: 30 tablet Refills: 11 amLODIPine 10 mg Tab Commonly known as: Norvasc Take 1 tablet by mouth daily. 10 mg Quantity: 30 tablet Refills: 0 aspirin EC 81 mg Tbec Take 1 tablet by mouth daily. 81 mg Quantity: 30 tablet Refills: 3 calcium carbonate 200 mg calcium (500 mg) Chew Commonly known as: Tums Take 2 tablets by mouth 3 times daily (with meals). 1,000 mg Quantity: 90 tablet Refills: 0 carvediloL 12.5 mg Tab Commonly known as: Coreg Take 1 tablet by mouth 2 times daily (with meals). 12.5 mg Quantity: 60 tablet Refills: 3 dilTIAZem CD 120 mg Cp24 Commonly known as: Cartia XT Take 1 capsule by mouth daily. 120 mg Quantity: 90 capsule Refills: 0 hydrALAZINE 100 mg Tab Commonly known as: Apresoline Take 1 tablet by mouth 3 times daily. 100 mg Quantity: 90 tablet Refills: 0 levETIRAcetam 500 mg Tab Commonly known as: Keppra Take 1 tablet by mouth 2 times daily. 500 mg Quantity: 60 tablet Refills: 0 levothyroxine 100 mcg Tab Commonly known as: Synthroid Take 1 tablet by mouth daily. 100 mcg Quantity: 90 tablet Refills: 0 losartan 100 mg Tab Commonly known as: COZAAR Take 1 tablet by mouth every morning. 100 mg Quantity: 60 tablet Refills: 0 multivitamin Cap Take 1 capsule by mouth daily. 1 capsule Quantity: 30 capsule Refills: 0 pantoprazole EC 20 mg Tbec Commonly known as: Protonix Take 1 tablet by mouth 2 times daily. 20 mg Quantity: 60 tablet Refills: 0 tacrolimus 1 mg Cap Commonly known as: Prograf Take 1 capsule by mouth 2 times daily. 1 mg Quantity: 60 capsule Refills: 0 Updated Allergies/ADRs: Allergies Allergen Reactions ??? Benazepril Hcl ??? Codeine Other (See Comments) Patient does not know reaction ??? Hydrochlorothiazide ??? Pollen Extracts Sneezing/runny nose Follow-up Recommendations for Providers: Daily dry gauze/tape dressing changes to left arm incision for 1-2 weeks until gauze is completely clean and dry when removed. Pt can shower with dressing removed, allow soap and warm water to cleanse incision, pat dry. Do not use graft until cleared to do so by Vascular Surgery. Instructions Given to Patient at Discharge: Patient Instructions Patient Instructions You had a left arm AV-graft placed today. This went very well. Dr. Tong will want you to follow up in clinic. This appointment will be scheduled and mailed to you. If you do not hear from our office in two weeks, give us a call at the number below. Your follow up is very important to us. Anticoagulation: Aspirin daily, continue Call your doctor if: Any fever, any drainage, redness or separation of your incision, increased pain or change in temperature of your arm or around your incision Activity level: No heavy lifting with your left hand until cleared in follow up. Do not lift more than a gallon of milk. Diet: Resume your previous regular diet. Shower/Bath: You may take a shower and pat your incision dry afterward. Do not soak or submerge your incision for at least three weeks or until cleared to do so at a follow up appointment. Wound care: The skin glue will flake off over time. Pain control: Use over the counter tylenol for pain control. For any problems or questions please call [phone] YEIMY Fallon, bowl sander Nurse Clinician For issues on weeknights after 5pm and weekends please call [phone] and ask for the Vascular Fellow beauty consultant. Nilda Minaya APRN Department of Vascular Surgery documented in this encounter Discharge Instructions * Patient Instructions* Nilda Minaya APRN - 04/04/2021 1:09 PM EDT Patient Instructions You had a left arm AV-graft placed today. This went very well. Dr. Tong will want you to follow up in clinic. This appointment will be scheduled and mailed to you. If you do not hear from our office in two weeks, give us a call at the number below. Your follow up is very important to us. Anticoagulation: Aspirin daily, continue Call your doctor if: Any fever, any drainage, redness or separation of your incision, increased pain or change in temperature of your arm or around your incision Activity level: No heavy lifting with your left hand until cleared in follow up. Do not lift more than a gallon of milk. Diet: Resume your previous regular diet. Shower/Bath: You may take a shower and pat your incision dry afterward. Do not soak or submerge your incision for at least three weeks or until cleared to do so at a follow up appointment. Wound care: The skin glue will flake off over time. Pain control: Use over the counter tylenol for pain control. For any problems or questions please call [phone] YEIMY Fallon, bowl sander Nurse Clinician For issues on weeknights after 5pm and weekends please call [phone] and ask for the Vascular Fellow beauty consultant. documented in this encounter Medications at Time [...] as of this encounter Progress Notes * Abigail Kohler RN - 04/04/2021 3:24 PM EDT [facility] Short Stay Unit Discharge Note All relevant discharge milestones have been met by the patent. After Visit Summary and discharge teaching reviewed with the patient. IV access has been discontinued. All personal belongings have been returned to the patient/family upon their departure from the unit. Patient has been discharged to home The patient has been discharged without VNA services. * Jaycob Villareal RN - 04/04/2021 7:34 AM EDT [facility] Short Stay Unit Shift Note The patient is progressing as expected except No Exceptions. Details: A&Ox4 while awake, breathing normally on RA, pain well controlled, pt able to ambulatewith SBA in room, LUE wrap CDI, peripheral CSMs intact. Plan for dialysis today. Progressing towarddischarge as expected. Patient Vitals for the past 24 hrs: Temp Heart Rate From SP02 Pulse Resp BP SpO2 O2 Flow Rate (L/min) O2 Device 04/03/21 1136 36 ??C (96.8 ??F) -- 54 18 116/64 96 % 6 L/min Simple mask 04/03/21 1145 -- 55 bpm 56 14 109/68 96 % -- RA 04/03/21 1200 -- 54 bpm 54 17 107/65 94 % -- -- 04/03/21 1215 -- 54 bpm 55 14 110/71 95 % -- RA 04/03/21 1230 36 ??C (96.8 ??F) 54 bpm 54 12 108/65 96 % -- RA 04/03/21 1300 -- 55 bpm 54 15 104/71 96 % -- RA 04/03/21 1400 -- 55 bpm -- 16 111/70 97 % -- RA 04/03/21 1500 -- 57 bpm -- 18 122/66 97 % -- RA 04/03/21 1558 36.8 ??C (98.2 ??F) 55 bpm 55 18 156/75 96 % -- RA 04/03/21 1900 36.6 ??C (97.9 ??F) -- 62 16 108/62 97 % -- RA 04/03/21 1959 -- 71 bpm -- -- 108/62 96 % -- -- 04/03/21 2333 37 ??C (98.6 ??F) 65 bpm -- 16 101/54 93 % -- RA 04/04/21 0434 36.4 ??C (97.5 ??F) 64 bpm -- 16 123/67 96 % -- RA 04/04/21 0611 -- -- -- -- 164/88 -- -- -- 04/04/21 0612 -- 88 bpm -- -- -- 97 % -- -- Intake/Output Summary (Last 24 hours) at 04/04/2021 0734 Last data filed at 04/04/2021 0500 Gross per 24 hour Intake 1460 ml Output 40 ml Net 1420 ml Will continue to progress the patient as tolerated to meet their relevant discharge milestones. * Dona Tellez MD - 04/03/2021 4:40 PM EDT Surgery Post Op Check Adama Ram is a 60 y.o. male status post left brachial-axillary arteriovenous graft placement S: Pain well controlled. Denies nausea/vomiting, chest pain, SOB. O: Temp: [36 ??C (96.8 ??F)-36.8 ??C (98.2 ??F)] Heart Rate: [54-56] Resp: [12-18] BP: (104-156)/(64-75) SpO2: [94 %-97 %] Heart Rate from SpO2: [54 bpm-57 bpm] No intake/output data recorded. I/O this shift: In: 350 [I.V.:350] Out: 40 [Blood:40] Physical Exam General: NAD, resting comfortably HEENT: EOM intact CVS: Regular rate Pulm: Breathing comfortably on room air Abd: soft, non tender, non distended Ext: LUE: skin warm and pink. Overlying anila bandage without evidence of saturation. Radial and graft signals immediately post op. Neuro: CN 2-12 grossly intact, nonfocal, moving all extremities. AP Adama Ram is a 60 y.o. male status left brachial-axillary arteriovenous graft placement currently in stable condition and recovering well - Regular diet - Pain well controlled - HDS Dona Tellez MD Vascular Surgery 04/03/21 * Naz Rodríguez RN - 04/03/2021 11:36 AM EDT Pt to PACU from OR via bed. Attached to monitors, all alarms active and audible. Surgical site to L upper extremity, wrapped in gauze and anila wrap. Dopplar pulse to L radius. 2/10 pain to L incision site, PRN medications per MAR. Denies nausea. Tolerating sips of water. AOx3, slow with responses, poor historian. MAEx4. 1515 - attempted to give report to SSU. documented in this encounter H&P Notes * Tristin Marrero MD - 04/03/2021 7:13 AM EDT Vascular Surgery History and Physical HPI: Adama Ram is a 60 y.o. male with history of HTN, HLD, ESRD s/p transplant in 2002 now withgraft failure and on HD. Previous history of multiple access procedures on the LUE and more recently R brachioaxillary graft in 2018. This occluded in December 2020 and could not be salvaged. Now received HD through R IJ catheter. Presents today for LUE AVG. Patient denies recent changes to his health. Denies recent CP, SOB, TORRES, PND, orthopnea. Patient ismaintained on daily ASA. Review of Systems: A full review encompassing at least 10 organ systems including general, neuro, pulm, cardiac, GI, , MSK, Endo, and psych was negative other than that listed in the HPI. Past Medical History: Past Medical History: Diagnosis [...] AV Fistula Evaluations 11/30/2019 Sabrina Velez MD [facility] INTERVENTIONL RAD ??? IR DIALYSIS ACCESS - AV FISTULA EVALUATIONS 01/07/2021 IR Dialysis Access - AV Fistula Evaluations 01/07/2021 Sabrina Velez MD [facility] INTERVENTIONL RAD ??? IR DIALYSIS ACCESS - TUNNELED LINE 07/30/2018 IR Dialysis Access - Tunneled Line 07/30/2018 Walt Lin MD [facility] INTERVENTIONL RAD ??? IR DIALYSIS ACCESS - TUNNELED LINE 08/30/2018 IR Dialysis Access - Tunneled Line 08/30/2018 Erwin Simon, CATRACHITO [facility] INTERVENTIONL RAD ??? IR DIALYSIS ACCESS - TUNNELED LINE 12/27/2020 IR Dialysis Access - Tunneled Line 12/27/2020 Kanu Apple MD [facility] INTERVENTIONL RAD ??? IR DIALYSIS ACCESS - TUNNELED LINE 01/23/2021 IR Dialysis Access - Tunneled Line 01/23/2021 Kanu Apple MD [facility] INTERVENTIONL RAD ??? IR DIALYSIS ACCESS - TUNNELED LINE 03/20/2021 IR Dialysis Access - Tunneled Line 03/20/2021 Tab Harmon MD [facility] INTERVENTIONL RAD ??? KIDNEY TRANSPLANT KIDNEY TRANSPLANT / RECIPIENT/LT Procedure Date: 11/26/2002 ??? PRO CREAT AV FISTULA, NON-AUTOGENOUS GRAFT Right 12/13/2018 PLACEMENT, AV HEMODIALYSIS GRAFT, SYNTHETIC GRAFT, UPPER EXTREMITY (WRVU 12.03) performed by Mary Garay MD at [facility] OR ? ? PRO DEBRIDEMENT SUBCUTANEOUS TISSUE 20 SQCM/< Left 02/20/2016 DEBRIDEMENT SKIN AND SUBCU, HEAD/NECK performed by Miguel Angel Moreno MD at [facility] OR ??? PRO DECOMPRESS FOREARM, BRACH ART EXPLOR Left 04/06/2018 FASCIOTOMY, FOREARM, WITH BRACHIAL ARTERY EXPLORATION (WRVU 8.41) performed by Lida Peter MDat [facility] OR ??? PRO DIRECT REPAIR RUPTURED ANEURYSM, AXILLO-BRACHIAL ARM INCIS Left 04/06/2018 @REPAIR, RUPTURED AXILLARY OR BRACHIAL ARTERY ANEURYSM BY ARM INCISION (WRVU *) performed by Lida Peter MD at [facility] OR ??? PRO EXC PAROTD, TOTAL, UNILAT RAD NECK Left 02/05/2016 @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, TOTAL, WITH UNILATERAL RADICAL NECK DISSECTION performed by Miguel Angel Moreno MD at [facility] OR ??? PRO EXC SKIN MALIG 3.1-4CM FACE, FACIAL Left 02/05/2016 EXC MALIGNANT LESION, 3.1 TO 4.0CM, FACE performed by Miguel Angel Moreno MD at [facility] MAIN OR ? ? PRO EXC SKIN MALIG >4CM TRUNK, ARM, LEG 04/19/2012 EXC MALIGNANT LESION, MICHAEL > 4.0CM, TRUNK performed by SABRINA SANCHEZ at [facility] OR ??? PRO LAP, RADICAL NEPHRECTOMY Left 05/31/2017 @LAPAROSCOPY, RADICAL NEPHRECTOMY (WRVU 25.06) performed by Jax Mills MD at [facility] MAIN OR ??? PRO LIGATN ANGIOACCESS AV FISTULA Left 04/19/2018 LIGATION OR BANDING OF HEMODIALYSIS FISTULA OR GRAFT UPPER EXTREMITY (WRVU 6.25) performed by Odalis Tong MD at [facility] MAIN OR ??? PRO NEGATIVE PRESSURE WOUND THERAPY, LESS THAN OR EQUAL TO 50 SQCM Left 04/19/2018 DRESSING CHANGE (VAC ASSISTED) UP TO 50SQ.CM (WRVU 0.55) performed by Odalis Tong MD [facility] OR ??? PRO REBL VES GRAFT, UP EXTREM Left 04/06/2018 REPAIR BLOOD VESSEL WITH GRAFT OTHER THAN VEIN, UPPER EXTREMITY (WRVU 15.83) performed by Lida Peter MD at [facility] MAIN OR ??? PRO RELIEVE PRESSURE ON NERVE(S) Left 04/06/2018 (MSURG) CARPAL TUNNEL (WRVU 4.82) performed by Silviano Sparks MD at [facility] MAIN OR ??? PRO REPAIR INTERMEDIATE S/A/T/E 2.6-7.5 CM 04/19/2012 REPAIR INTERMEDIATE WOUND, (NO HANDS OR FEET) 2.6 TO 7.5CM, UPPER EXTREMITY performed by SABRINA SANCHEZ at [facility] OR ? ? PRO REPAIR INTERMEDIATE S/A/T/E > 30.0 CM Left 04/14/2018 REPAIR INTERMEDIATE WOUND, (NO HANDS OR FEET) >30.0CM, UPPER EXTREMITY (WRVU 5) performed by Yimi Easton MD at [facility] OR ??? PRO REVISE MEDIAN N/CARPAL TUNNEL SURG Left 04/06/2018 MEDIAN NERVE DECOMPRESSION (CARPAL TUNNEL RELEASE) (WRVU 4.97) performed by Lida Peter MD [facility] OR ? ? PRO SPLIT GRFT TRUNK, ARM, LEG <100SQCM Left 04/26/2018 SPLIT THICK SKIN GRAFT,100 SQ CM OR LESS, ARMS (WRVU 9.9) performed by Silviano Sparks MD at [facility] MAIN OR ? ? PRO SPLIT GRFT, HEAD, FAC, HAND, FEET <100SQCM N/A 02/20/2016 SPLIT THICKNESS SKIN SPLIT GRAFT,100SQ CM OR LESS, NECK performed by Miguel Angel Moreno MD at [facility] MAIN OR ??? PRO SPLIT GRFT, TRUNK, ARM, LEG EA 100SQCM N/A 04/26/2018 EA.ADDITIONAL 100SQ.CM STSG (WRVU 1.72) performed by Silviano Sparks MD at [facility] MAIN OR ??? PRO UPPER GI ENDOSCOPY, BIOPSY N/A 05/13/2017 EGD WITH BIOPSY (WRVU 2.49) performed by Aditya Barrera MD at [facility] ENDOSCOPY ??? PRO VASCULAR SURGERY PROCEDURE UNLIST Left 11/20/2015 LIGATION\REPAIR AV FISTULA performed by Camilo Ireland MD at [facility] MAIN OR ??? PRO VASCULAR SURGERY PROCEDURE UNLIST Left 11/20/2015 EXCISION VEIN FROM HAND performed by Camilo Ireland MD at [facility] MAIN OR ??? US RENAL TRANSPLANT BIOPSY 12/31/2010 ??? US RENAL TRANSPLANT RIGHT Right 06/04/2018 US Renal Transplant Right 06/04/2018 [facility] RAD ULTRASOUND Family Hx: Negative for Thrombosis, Bleeding Disorders Medications: No current facility-administered medications on file prior to encounter. Current Outpatient Medications on File Prior to Encounter Medication Sig Dispense Refill ??? dilTIAZem (CARTIA XT) 120 mg Capsule, [...] 2 times daily. 60 tablet 0 ??? hydrALAZINE (APRESOLINE) 100 mg [...] by mouth daily. 90 tablet 0 ??? aspirin 81 mg Tablet, Delayed Release (E.C.) Take 1 tablet by mouth daily. 30 tablet 3 ??? calcium carbonate (TUMS) 200 mg calcium (500 mg) Tablet, Chewable Take 2 tablets by mouth 3 times daily (with meals). 90 tablet 0 Allergies: Benazepril hcl, Codeine, Hydrochlorothiazide, and Pollen extracts Physical Exam: Temp: [36.3 ??C (97.3 ??F)] Heart Rate: [50] Resp: [16] BP: (110)/(72) SpO2: [96 %] Heart Rate from SpO2: -- General: NAD, resting comfortably HEENT: PERRL, anicteric sclerae CVS: Regular rate, no murmurs rubs or gallops Pulm: Clear bilaterally Abd: soft, non tender, non distended Ext: LUE: No edema. Skin warm and pink. No tissue loss. Numerous access scars and skin graft sites. Neuro: Grossly nonfocal, moving all extremities. Labs: No results for input(s): WBC, HGB, HCT, PLATELET in the last 72 hours. No results for input(s): NA, K, CL, CO2, BUN, CREATININE, PHOS, CALCIUM in the last 72 hours. Studies/Imaging: None new Assessment and Plan: Adama Ram is a 60 y.o. male who presents today for LUE AVG placement. Risks, benefits, and alternatives were discussed and patient elects to proceed. Angelina Marrero Vascular Surgery Pager #[phone] documented in this encounter Miscellaneous Notes * Consult Note - Crystal Mcdermott MD - 04/04/2021 11:32 AM EDT NEPHROLOGY CONSULT NOTE Reason for consult: ESRD/HD HPI: 60yo man s/p creation of LUE AVG. Patient seen and examined on dialysis. Clinical and laboratory data reviewed. Stable treatment. No issues with dialysis or access. Patient being discharged today, but has an adobe developer chair time in [facility]. They could not accommodate him at a later time. Will discharge after dialysis today. He is feeling well. No complaints. Past Medical History: Diagnosis Date ??? BP [...] AV Fistula Evaluations 11/30/2019 Sabrina Velez MD [facility] INTERVENTIONL RAD ??? IR DIALYSIS ACCESS - AV FISTULA EVALUATIONS 01/07/2021 IR Dialysis Access - AV Fistula Evaluations 01/07/2021 Sabrina Velez MD [facility] INTERVENTIONL RAD ??? IR DIALYSIS ACCESS - TUNNELED LINE 07/30/2018 IR Dialysis Access - Tunneled Line 07/30/2018 Walt Lin MD [facility] INTERVENTIONL RAD ??? IR DIALYSIS ACCESS - TUNNELED LINE 08/30/2018 IR Dialysis Access - Tunneled Line 08/30/2018 Erwin Simon APRN [facility] INTERVENTIONL RAD ??? IR DIALYSIS ACCESS - TUNNELED LINE 12/27/2020 IR Dialysis Access - Tunneled Line 12/27/2020 Kanu Apple MD [facility] INTERVENTIONL RAD ??? IR DIALYSIS ACCESS - TUNNELED LINE 01/23/2021 IR Dialysis Access - Tunneled Line 01/23/2021 Kanu Apple MD [facility] INTERVENTIONL RAD ??? IR DIALYSIS ACCESS - TUNNELED LINE 03/20/2021 IR Dialysis Access - Tunneled Line 03/20/2021 Tab Harmon MD [facility] INTERVENTIONL RAD ??? KIDNEY TRANSPLANT KIDNEY TRANSPLANT / RECIPIENT/LT Procedure Date: 11/26/2002 ??? PRO CREAT AV FISTULA, NON-AUTOGENOUS GRAFT Right 12/13/2018 PLACEMENT, AV HEMODIALYSIS GRAFT, SYNTHETIC GRAFT, UPPER EXTREMITY (WRVU 12.03) performed by Mary Garay MD at [facility] OR ??? PRO CREAT AV FISTULA, NON-AUTOGENOUS GRAFT Left 04/03/2021 PLACEMENT, AV HEMODIALYSIS GRAFT, SYNTHETIC GRAFT, UPPER EXTREMITY (WRVU 12.03) performed by Odalis Tong MD at [facility] MAIN OR ? ? PRO DEBRIDEMENT SUBCUTANEOUS TISSUE 20 SQCM/< Left 02/20/2016 DEBRIDEMENT SKIN AND SUBCU, HEAD/NECK performed by Miguel Angel Moreno MD at [facility] OR ??? PRO DECOMPRESS FOREARM, BRACH ART EXPLOR Left 04/06/2018 FASCIOTOMY, FOREARM, WITH BRACHIAL ARTERY EXPLORATION (WRVU 8.41) performed by Lida Peter MDat [facility] OR ??? PRO DIRECT REPAIR RUPTURED ANEURYSM, AXILLO-BRACHIAL ARM INCIS Left 04/06/2018 @REPAIR, RUPTURED AXILLARY OR BRACHIAL ARTERY ANEURYSM BY ARM INCISION (WRVU *) performed by iLda Peter MD at [facility] OR ??? PRO EXC PAROTD, TOTAL, UNILAT RAD NECK Left 02/05/2016 @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, TOTAL, WITH UNILATERAL RADICAL NECK DISSECTION performed by Miguel Angel Moreno MD at [facility] OR ??? PRO EXC SKIN MALIG 3.1-4CM FACE, FACIAL Left 02/05/2016 EXC MALIGNANT LESION, 3.1 TO 4.0CM, FACE performed by Miguel Angel Moreno MD at [facility] OR ? ? PRO EXC SKIN MALIG >4CM TRUNK, ARM, LEG 04/19/2012 EXC MALIGNANT LESION, MICHAEL > 4.0CM, TRUNK performed by SABRINA SANCHEZ at [facility] OR ??? PRO LAP, RADICAL NEPHRECTOMY Left 05/31/2017 @LAPAROSCOPY, RADICAL NEPHRECTOMY (WRVU 25.06) performed by Jax Mills MD at [facility] OR ??? PRO LIGATN ANGIOACCESS AV FISTULA Left 04/19/2018 LIGATION OR BANDING OF HEMODIALYSIS FISTULA OR GRAFT UPPER EXTREMITY (WRVU 6.25) performed by Odalis Tong MD at [facility] MAIN OR ??? PRO NEGATIVE PRESSURE WOUND THERAPY, LESS THAN OR EQUAL TO 50 SQCM Left 04/19/2018 DRESSING CHANGE (VAC ASSISTED) UP TO 50SQ.CM (WRVU 0.55) performed by Odalis Tong MD [facility] MAIN OR ??? PRO REBL VES GRAFT, UP EXTREM Left 04/06/2018 REPAIR BLOOD VESSEL WITH GRAFT OTHER THAN VEIN, UPPER EXTREMITY (WRVU 15.83) performed by Lida Peter MD at [facility] MAIN OR ??? PRO RELIEVE PRESSURE ON NERVE(S) Left 04/06/2018 (MSURG) CARPAL TUNNEL (WRVU 4.82) performed by Silviano Sparks MD at [facility] MAIN OR ??? PRO REPAIR INTERMEDIATE S/A/T/E 2.6-7.5 CM 04/19/2012 REPAIR INTERMEDIATE WOUND, (NO HANDS OR FEET) 2.6 TO 7.5CM, UPPER EXTREMITY performed by SABRINA SANCHEZ at [facility] MAIN OR ? ? PRO REPAIR INTERMEDIATE S/A/T/E > 30.0 CM Left 04/14/2018 REPAIR INTERMEDIATE WOUND, (NO HANDS OR FEET) >30.0CM, UPPER EXTREMITY (WRVU 5) performed by Yimi Easton MD at [facility] MAIN OR ??? PRO REVISE MEDIAN N/CARPAL TUNNEL SURG Left 04/06/2018 MEDIAN NERVE DECOMPRESSION (CARPAL TUNNEL RELEASE) (WRVU 4.97) performed by Lida Peter MD [facility] MAIN OR ? ? PRO SPLIT GRFT TRUNK, ARM, LEG <100SQCM Left 04/26/2018 SPLIT THICK SKIN GRAFT,100 SQ CM OR LESS, ARMS (WRVU 9.9) performed by Silviano Sparks MD at [facility] MAIN OR ? ? PRO SPLIT GRFT, HEAD, FAC, HAND, FEET <100SQCM N/A 02/20/2016 SPLIT THICKNESS SKIN SPLIT GRAFT,100SQ CM OR LESS, NECK performed by Miguel Angel Moreno MD at [facility] MAIN OR ??? PRO SPLIT GRFT, TRUNK, ARM, LEG EA 100SQCM N/A 04/26/2018 EA.ADDITIONAL 100SQ.CM STSG (WRVU 1.72) performed by Silviano Sparks MD at [facility] MAIN OR ??? PRO UPPER GI ENDOSCOPY, BIOPSY N/A 05/13/2017 EGD WITH BIOPSY (WRVU 2.49) performed by Aditya Barrera MD at [facility] ENDOSCOPY ??? PRO VASCULAR SURGERY PROCEDURE UNLIST Left 11/20/2015 LIGATION\REPAIR AV FISTULA performed by Camilo Ireland MD at [facility] MAIN OR ??? PRO VASCULAR SURGERY PROCEDURE UNLIST Left 11/20/2015 EXCISION VEIN FROM HAND performed by Camilo Ireland MD at [facility] MAIN OR ??? US RENAL TRANSPLANT BIOPSY 12/31/2010 ??? US RENAL TRANSPLANT RIGHT Right 06/04/2018 US Renal Transplant Right 06/04/2018 [facility] RAD ULTRASOUND Current Facility-Administered Medications Medication Dose Route Frequency Provider Last Rate Last Admin ??? heparin (porcine) (1,000 units/mL) injection 1,000-10,000 Units 1,000-10,000 Units Intercatheter Once in dialysis PRN Crystal Mcdermott MD ??? thrombin (bovine) (Thrombin-Jmi) solution Once PRN Odalis Tong MD 5,000 Units at 04/03/21 1053 ??? gelatin adsorbable (Gelfoam) sponge Once PRN Odalis Tong MD 4 each at 04/03/21 1054 ??? acetaminophen (Tylenol) tablet 1,000 mg 1,000 mg Oral Q6H Tristin Marrero MD 1,000 mg at 04/04/21 0610 ??? allopurinoL (Zyloprim) tablet 100 mg 100 mg Oral Daily Tristin Marrero MD ??? amLODIPine (Norvasc) tablet 10 mg 10 mg Oral Daily Tristin Marrero MD ??? aspirin EC tablet 81 mg 81 mg Oral Daily Tristin Marrero MD ??? calcium carbonate (Tums) chewable tablet 1,000 mg 1,000 mg Oral TID Tristin Owen MD ??? carvediloL (Coreg) tablet 12.5 mg 12.5 mg Oral BID Tristin Marrero MD ??? dilTIAZem CD (Cardizem CD) capsule 120 mg 120 mg Oral Daily Tristin Marrero MD ??? hydrALAZINE (Apresoline) tablet 100 mg 100 mg Oral TID Tristin Marrero MD ??? levETIRAcetam (Keppra) tablet 500 mg 500 mg Oral BID Tristin Marrero MD 500 mg at 04/04/21 003 ??? levothyroxine (Synthroid) tablet 100 mcg 100 mcg Oral Daily Tristin Marrero MD ??? losartan (Cozaar) tablet 100 mg 100 mg Oral QAM Tristin Marrero MD 100 mg at 04/04/21 0611 ??? pantoprazole EC (Protonix) tablet 20 mg 20 mg Oral BID Tristin Marrero MD 20 mg at 208 ??? tacrolimus (Prograf) capsule 1 mg 1 mg Oral BID Tristin Marrero MD 1 mg at 04/04/21 003 ??? sodium chloride 0.9 % (flush) (BD PosiFlush Normal Saline 0.9) flush 5 mL 5 mL Intravenous BID Tristin Marrero MD 5 mL at 04/03/212207 ??? sodium chloride 0.9 % (flush) (BD PosiFlush Normal Saline 0.9) flush 5-20 mL 5-20 mL Intravenous Q1 Min PRN Tristin Marrero MD ??? lidocaine (Xylocaine) 1% (10 mg/mL) injection 3 mg 0.3 mL Subcutaneous Once PRN Tristin Marrero MD ??? bisacodyL (Dulcolax) suppository 10 mg 10 mg Rectal Daily PRN Tristin Marrero MD ??? polyethylene glycoL (Miralax) packet 17 g 17 g Oral Daily Tristin Marrero MD ??? senna-docusate (Pericolace) 8.6-50 mg per tablet 2 tablet 2 tablet Oral BID Tristin Marrero MD 2 tablet at 04/03/212207 ??? ondansetron (Zofran) tablet 4-8 mg 4-8 mg Oral Q8H PRN Tristin Marrero MD Or ??? ondansetron (pf) (Zofran) (2 mg/mL) injection 4-8 mg 4-8 mg Intravenous Q8H PRN Tristin Marrero MD ??? ceFAZolin (Ancef) 2 g in dextrose 5% 100 mL (2 x 1 g/50 mL premix bags) infusion 2 g Intravenous Q8H Sid Patino MD 2 g at 04/04/21 0032 Allergies Allergen Reactions ??? Benazepril Hcl ??? Codeine Other (See Comments) Patient does not know reaction ??? Hydrochlorothiazide ??? Pollen Extracts Sneezing/runny nose Family History Problem Relation Age of Onset ??? Pancreatitis Father Social History Socioeconomic History ??? Marital status: Single Spouse name: Not on file ??? Number of children: Not on file ??? Years of education: Not on file ??? Highest education level: Not on file Occupational History ??? 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 Smoking status: Former Smoker Packs/day: 0.25 Years: 1.50 Pack years: 0.37 Types: Cigarettes Quit date: 12/03/2000 Years since quittin.3 ??? Smokeless tobacco: Former User Quit date: 04/14/2001 Vaping Use ??? Vaping Use: Never used Substance and Sexual Activity ??? Alcohol use: No ??? Drug use: No Types: Marijuana Comment: havent in ??? Sexual activity: Not on file Comment: Deferred PE: Vitals: 04/04/21 0611 04/04/21 0612 04/04/21 0734 04/04/21 0821 BP: 164/88 102/64 103/81 BP Location (NBP): Right arm Right arm Patient Position: Lying Lying Pulse: 82 Resp: 18 20 Temp: 36.6 ??C (97.9 ??F) 36.5 ??C (97.7 ??F) TempSrc: Oral Oral SpO2: 97% 97% 97% Weight: Height: Gen - Awake and alert. NAD. HEENT - NCAT. Clear sclerae. Neck - Supple. Resp - Clear lungs. CV - RRR. Abdomen - Benign. Ext - No edema. Psychiatric - Appropriate mood and affect. Neuro - No focal deficits. Recent Results (from the past 18 hour(s)) Hepatitis B Surface Antigen Collection Time: 04/03/21 5:38 PM Result Value Ref Range HepB Surface Ag Negative Negative Assessment and Recommendations: 60yo man s/p creation of LUE AVG. ESRD - Plan is to discharge after dialysis. Crystal Mcdermott MD Nephrology Pager: [phone] * Op Note - Tristin Marrero MD - 04/03/2021 2:16 PM EDT [facility] Operative Note Patient Name: Adama Ram : [id number] MR#: [id number] Case Date: 04/03/2021 Surgeon: Surgeon(s) and Role: * Odalis Tong MD - Primary * Tristin Marrero MD - Resident Preoperative diagnosis: ESRD Postoperative diagnosis: ESRD Procedure(s) (LRB): PLACEMENT, AV HEMODIALYSIS GRAFT, SYNTHETIC GRAFT, UPPER EXTREMITY (VU 12.03) (Left) Procedures: 1. LEFT brachial-axillary arteriovenous graft placement Findings: LEFT axillary vein exposed in area relatively free of scar. LEFT brachial artery exposed and calcified but suitable for arterial anastomosis. 4- 7mm tapered PTFE graft tunneled laterally on the arm. After initial anastomosis very weak thrill noted. Arterial anastomosis taken down and revised with several tacking sutures to repair focal dissection at the anastomosis. Strong thrill in outflow vein thereafter. Superficial, likely sensory, nerve noted at the axillary exposure which was repaired with interrupted 8-0 nylon sutures. Radial signal at case completion. Anesthesia: General Estimated Blood Loss: 40 mL Heparin: 3,000 units Specimens removed during surgery: None Fluids: 350 mL ?? PRBCs: none (See Anesthesia Record/Report [...] details pertinent to this patient.) HPI/Surgical Indications: 60 y.o. male who presents today for LUE AVG placement. Risks, benefits, and alternatives were discussed and patient elects to proceed. Procedure Description: After informed consent was obtained the patient was brought back to the operating room and placed supine on the OR table. Preoperative antibiotics were given. A timeout was performed. Attention was then turned to the patient's left arm which was prepped and draped in the usual sterile fashion. A longitudinal incision overlying the axillary vein, which was identified and marked by pre-operative ultrasound. The incision was deepened using bovie cautery and the axillary vein was identified and the vein and its branches were all circumferentially dissected and encircled with vessel loops. During this dissection through a scarred field, a superficial likely sensory nerve was transected. Theends were identified and plastic surgery was called into the room. They recommended repair with 8-0nylon sutures at the end of the case. Next, a longitudinal incision overlying the brachial artery, which was identified and marked by pre-operative ultrasound, was made above the antecubital crease. The incision was deepened through subcutaneous tissues using bovie cautery and the fascia overlying the artery was incised taking care to a void injury to the median nerve. The brachial artery was identified, dissected circumferentially and encircled with vessel loops proximally and distally. Small branches were divided between 3-0 silk ties. We then created our subcutaneous tunnel between the axillary vein and brachial artery was created with a 8mm tunneler. A 4mm-7mm Goretex graft was passed through the tunnel. The axillary vein and itsbranches were controlled with vessel loops. A te-moak blade scalpel was used to create a longitudinal arteriotomy of 7mm which was extended with iris scissors. The 7mm end of the graft was cut to sizeand an end to side anastomosis was completed using CV6 Goretex suture in a running fashion. Prior to completion, the anastomosis was flushed, the clamps were removed from the artery, and a clamp was placed on the graft. We then began our brachial artery anastomosis by controlling the brachial artery proximally and distally with clamps. The 4mm end of the graft was cut to size. A te-moak blade scalpel was used to create a longitudinal arteriotomy which was extended using iris scissors. Next, an end to side anastomosis was constructed using CV6 Goretex suture in running fashion. Prior to completion, the anastomosiswas flushed to expel any debris or air. The clamps were removed. There was a weak thrill in the outflow vein but the graft did not distend. The decision was made to take down the arterial anastomosis. A small dissection flap was noted which was tacked with several 6-0 prolene sutures. The arteriotomy was extended slightly and the graft re-spatulated. Next, an end to side anastomosis was constructed using CV6 Goretex suture in running fashion. Prior to completion, the anastomosis was flushed to expel any debris or air. The clamps were removed. There was a palpable thrill in the graft. Thrombinsoaked gelfoam was applied to all anastomoses. We then returned our attention to the transected nerve which was reapproximated with 4 8-0 nylon interrupted sutures in all 4 cardinal direction. This reapproximated without any tension. Following this, hemostasis was noted to be excellent. The wounds were copiously irrigated and hemostasis was satisfactory. The wound were then closed in layers using3-0 vicryl, 4-0 monocryl, and dermabond glue. Telfa and tegaderm was applied to each incision. The arm was then wrapped from the hand to the axilla with kerlex and ANILA. All instrument and sponge counts were correct at the end of the case, and Dr. Tong was present for the entire case. The patient was taken to the recovery room in stable condition Infection Bundle used? No Implants: Implant Name Type Inv. Item Serial No. Chemistry Research Assistant Lot No. LRB No. Used Action GRAFT VASCULAR [id number] STRAIGHT HEPARIN COATED STANDARD ([id number]) - [id number] IMPLANTS GRAFT VASCULAR [id number] STRAIGHT HEPARIN COATED STANDARD ([id number]) [id number] [employer] GARCIA AN Left 1 Implanted Associated attestation - Odalis Tong MD - 04/04/2021 7:45 AM EDT Attestation: Case Date: 04/03/2021 I was present and scrubbed for the entire procedure. ODALIS TONG MD 04/04/2021 * Brief Op Note - Tristin Marrero MD - 04/03/2021 11:57 AM EDT Brief Operative Note Patient Name: Adama Ram : [id number] MR#: [id number] Case Date: 04/03/2021 Surgeon: Surgeon(s) and Role: * Odalis Tong MD - Primary * Tristin Marrero MD - Resident Preoperative diagnosis: ESRD Postoperative diagnosis: ESRD Procedure(s) (LRB): PLACEMENT, AV HEMODIALYSIS GRAFT, SYNTHETIC GRAFT, UPPER EXTREMITY (WRVU 12.03) (Left) Anesthesia: General Findings: LEFT axillary vein exposed in area relatively free of scar. LEFT brachial artery exposed and calcified but suitable for arterial anastomosis. 4- 7mm tapered PTFE graft tunneled laterally on the arm. After initial anastomosis very weak thrill noted. Arterial anastomosis taken down and revised with several tacking sutures to repair focal dissection at the anastomosis. Strong thrill in outflow vein thereafter. Superficial, likely sensory, nerve noted at the axillary exposure which was repaired with interrupted 8-0 nylon sutures. Radial signal at case completion. Complications: None Estimated Blood Loss: 40 mL Heparin: 3,000 units Specimens removed during surgery: None Fluids: 350 mL PRBCs: none (See Anesthesia Record/Report for Other Blood Products) Urine Output: (no urine output recorded) Drains: None Disposition: awakened from anesthesia, extubated and taken to the recovery room in a stable condition, having suffered no apparent untoward event. Condition: doing well without problems (Please see the Surgical Encounter Summary for any Implant and Specimen details pertinent to this patient.) Infection Bundle used? No Implants: Implant Name Type Inv. Item Serial No. Chemistry Research Assistant Lot No. LRB No. Used Action GRAFT VASCULAR [id number] STRAIGHT HEPARIN COATED STANDARD ([id number]) - [id number] IMPLANTS GRAFT VASCULAR [id number] STRAIGHT HEPARIN COATED STANDARD ([id number]) [id number] [employer] [facility] [place] [facility] Left 1 Implanted documented in this encounter Plan of Treatment Not on file documented as of this encounter Procedures Procedure Name Priority Date/Time Associated Diagnosis Comments HC HEPATITIS B SURFACE AG Routine 04/03/2021 5:38 PM EDT RAPID COVID-19 PCR ([facility]) Routine 04/03/2021 9:39 AM EDT Creat Av Fistula, Non-Autogenous Graft (39745) 04/03/2021 7:55 AM EDT ESRD HC VENIPUNCTURE STAT 04/03/2021 6:55 AM EDT ESRD (end stage renal disease) Pre-op testing PLACEMENT, AV HEMODIALYSIS GRAFT, SYNTHETIC GRAFT Routine 04/03/2021 6:35 AM EDT documented in this encounter Results * Hepatitis B Surface Antigen (04/03/2021 5:38 PM EDT) Pathologist [facility] Hepatitis B Surface Antigen Negative Negative [facility] Blood 04/03/2021 5:38 PM EDT 04/03/2021 6:42 PM EDT Narrative Resulting Agency Comment Spec In Lab Crystal Mcdermott MD CHEMISTRY ORDERABLE S [facility] [place] [address] * COVID-19 PCR (04/03/2021 9:39 AM EDT) SARS-CoV-2 RNA (Rapid) Not Detected Not Detected [facility] Comment: This result should be interpreted [...] using the Simplexa COVID-19 Direct Assay by [employer] as authorized by the FDA issued Emergency [...] Department of Pathology and Laboratory Medicine at [facility], certified under the Clinical Laboratory Improvement Amendments [...] fact sheets at the following FDA website: https://www.fda.gov/medical-devices/uggreujvpab-bygrmdt-2096-oespx-58-xmiqvfzxe- use-a cktftnousluxf-mrpckit-qjdbnrn/xnlvp-hmyoqmzkvhn-crnm SARS-CoV-2 Source DIE DRAWING CHECKER Swab [facility] Nasopharyngeal Swab 04/03/20 9:39 AM EDT 04/03/2021 9:50 AM EDT Comment:Symptoms->Surveillan ce Narrative Resulting Agency Comment Spec In Lab Odalis Tong MD MICROBIOLOGY - GENERAL ORDERABLES Performing Organization Address City/[facility]/ZIP Co de Phone Number [facility] [place] [address] * Potassium (04/03/2021 6:55 AM EDT) Potassium 5.0 3.5 - 5.0 mmol/L [facility] Comment: Please note: ??Patients with WBC >100,000 may have falsely elevated Potassium levels. ??For accurate Potassium quantification in these patients send serum separator tube (gold top) for subsequent determinations. ??Contact the Clinical Chemistry Laboratory if there are any questions. Blood 04/03/2021 6:55 AM EDT 04/03/2021 7:00 AM EDT Narrative Resulting Agency Comment Spec In Lab Odalis Tong MD CHEMISTRY ORDER KELLY Performing Organization Address [facility] Co de Phone Number [facility] [place] [address] documented in this encounter Visit Diagnoses Not on filedocumented in this encounter Admitting Diagnoses Diagnosis ESRD (end stage renal disease) End stage renal disease documented in this encounter Administered Medications Inactive Administered Medications - up to 3 most recent administrations Medication Order MAR Action Action Date Dose Rate Site acetaminophen (Tylenol) tablet 1,000 mg 1,000 mg, Oral, EVERY 6 HOURS, First dose on Mariza 04/03/21 at 1230, Until Discontinued, Maximum dose of acetaminophen is 4000 mg from all sources in 24 hours. When ordered for pain, acetaminophen should be given even when other ordered pain medications are indicated. , Routine Given 04/04/2021 6:10 AM EDT 1,000 mg Given 04/04/2021 12:31 AM EDT 1,000 mg Given 04/03/2021 5:38 PM EDT 1,000 mg ceFAZolin (Ancef) 2 g in dextrose 5% 100 mL (2 x 1 g/50 mL premix bags) infusion 2 g, Intravenous, EVERY 8 HOURS, 3 doses, First dose on Mariza 04/03/21 at 1600, Last dose on Wed04/04/21 at 0800, Administer over 30 Minutes, Total dose of ceFAZolin 2 grams, administered using two ceFAZolin 1g/50mL IV bags. Infuse each ceFAZolin 1g/50mL bag over 30 minutes (100 ml/hr) for total infusion time of 60 minutes. On the SEP, document administration of first bag using New Bag (1 of 2) MAR action for dose of 1g. On the SEP, document administration of second bag using Next Bag (2 of 2) MAR action for dose of 1g (resulting in total dose of 2g)., Indication for (Active or Suspected): Prophylaxis New Bag (1 of 2) 04/04/2021 12:32 AM EDT 2 g 100 mL/hr New Bag (1 of 2) 04/03/2021 3:29 PM EDT 1 g 100 mL/ hr gelatin adsorbable (Gelfoam) sponge ONCE PRN, Starting on Mariza 04/03/21 at 1053, Until Wed04/04/21 at 1730, Intra-Operative (Intra-Procedure) Given 04/03/2021 10:54 AM EDT 4 each 19- Surgical Site Given 04/03/2021 10:53 AM EDT 4 each 1 9- Surgical Site heparin (porcine) (1,000 units/mL) injection 1,000-10,000 Units 1,000-10,000 Units, Intercatheter, ONCE IN DIALYSIS PRN, 1 dose, Starting on Wed04/04/21 at 0708, Until Wed04/04/21 at 1231, Line Care, Per Protocol, Catheter lock use catheter specified fill volume per dialysis protocol. For use in Dialysis only. Procedure ID: [id number] (Hemodialysis CVAD Procedure - Care and Maintenance) in Clinical Policies., Dialysis (Intra-Procedure), Routine Given 04/04/2021 12:31 PM EDT 4,000 Units heparin (porcine) (1,000 units/mL) injection 6,000 Units 6,000 Units, Intravenous, ONCE IN DIALYSIS, 1 dose, On Wed04/04/21 at 0800, For use in Dialysis only., Dialysis (Intra-Procedure), Routine Given 04/04/2021 8:34 AM EDT 6,000 Units levETIRAcetam (Keppra) tablet 500 mg 500 mg, Oral, 2 TIMES DAILY, First dose on Mariza 04/03/21 at 2115, Until Discontinued, Routine Given 04/04/2021 12:31 AM EDT 500 mg losartan (Cozaar) tablet 100 mg 100 mg, Oral, EVERY MORNING, First dose on Wed04/04/21 at 0700, Until Discontinued, Routine Given 04/04/2021 6:11 AM EDT 100 mg ondansetron (pf) (Zofran) (2 mg/mL) injection 4-8 mg 4-8 mg, Intravenous, EVERY 8 HOURS PRN, Starting on Wed04/03/21 at 2020, Until Wed04/04/21 at 1730, Nausea, Start with 4mg and if ineffective in 30 minutes, give an additional 4mg If multiple antiemetics are ordered, give ondansetron first. ondansetron (Zofran) tablet 4-8 mg 4-8 mg, Oral, EVERY 8 HOURS PRN, Starting on Wed04/03/21 at 2020, Until Wed04/04/21 at 1730, Nausea, Vomiting, If multiple antiemetics are ordered, use ondansetron first. PO Preferred. If patient unable to take PO, may give IV if ordered. Start with 4mg and if ineffective in 45 minutes, give an additional 4mg. If unable to take PO, may give IV., Routine pantoprazole EC (Protonix) tablet 20 mg 20 mg, Oral, 2 TIMES DAILY, First dose on Wed04/03/21 at 2114, Until Discontinued, DO NOT CRUSH OR OPEN Given 04/03/2021 10:08 PM EDT 20 mg senna-docusate (Pericolace) 8.6-50 mg per tablet 2 tablet 2 tablet, Oral, 2 TIMES DAILY, First dose on Wed04/03/21 at 2114, Until Discontinued, Routine Given 04/03/2021 10:08 PM EDT 2 tablets sodium chloride 0.9 % (flush) (BD PosiFlush Normal Saline 0.9) flush 5 mL 5 mL, Intravenous, 2 TIMES DAILY, First dose on Wed04/03/21 at 2114, Until Discontinued, Routine Given 04/03/2021 10:08 PM EDT 5 mLs tacrolimus (Prograf) capsule 1 mg 1 mg, Oral, 2 TIMES DAILY, First dose on Wed04/03/21 at 5, Until Discontinued, DO NOT SPLIT, CRUSH OR OPEN, Routine Given 04/04/2021 12:31 AM EDT 1 mg thrombin (bovine) (Thrombin-Jmi) solution ONCE PRN, Starting on Mariza 04/03/21 at 1052, Until Wed04/04/21 at 1730, Intra-Operative (Intra-Procedure) Given 04/03/2021 10:53 AM EDT 5,000 Units 19- Surgical Site Given 04/03/2021 10:52 AM EDT 5,000 Units 19- Surgical Site documented in this encounter Active and Recently Administered Medications Times are shown in EDT. Scheduled Medication Order 04/02/2021 04/03/2021 04/04/2021 acetaminophen (Tylenol) tablet 1,000 mg 1,000 mg, Oral, EVERY 6 HOURS, First dose on Mariza 04/03/21 at 1230, Until Discontinued, Maximum dose of acetaminophen is 4000 mg from all sources in 24 hours. When ordered for pain, acetaminophen should be given even when other ordered pain medications are indicated. , Routine 1209 (Given - Provider: Naz Rodríguez RN)1738 (Given - Provider: Odalis Kunz LPN) 0031 (Given - Provider: Jaycob Villareal RN)0610 (Given - Provider: Jaycob Villareal RN)1230 (Due) allopurinoL (Zyloprim) tablet 100 mg 100 mg, Oral, DAILY, First dose on Wed04/04/21 at 0900, Until Discontinued, Routine 0900 (Due) amLODIPine (Norvasc) tablet 10 mg 10 mg, Oral, DAILY, First dose on Wed04/04/21 at 0900, Until Discontinued, Routine 0900 (Due) aspirin EC tablet 81 mg 81 mg, Oral, DAILY, First dose on Wed04/04/21 at 0900, Until Discontinued, Routine 0900 (Due) calcium carbonate (Tums) chewable tablet 1,000 mg 1,000 mg, Oral, 3 TIMES DAILY WITH MEALS, First dose on Wed04/04/21 at 0800, Until Discontinued, Routine 0800 (Due)1200 (Due) carvediloL (Coreg) tablet 12.5 mg 12.5 mg, Oral, 2 TIMES DAILY WITH MEALS, First dose on Wed04/04/21 at 0800, Until Discontinued, Routine 0800 (Due) ceFAZolin (Ancef) 2 g in dextrose 5% 100 mL (2 x 1 g/50 mL premix bags) infusion (COMPLETED) 2 g, Intravenous, GAS MAIN FITTER TO O.R., 1 dose, On Mariza 04/03/21 at 0730, Administer over 30 Minutes, Redose after 4 hours. Total dose of ceFAZolin 2 grams, administered using two ceFAZolin 1g/50mL IV bags. Infuse each ceFAZolin 1g/50mL bag over 30 minutes (100 ml/hr) for total infusion time of 60 minutes. On the MAR, document administration of first bag using New Bag (1 of 2) MAR action for dose of 1g. On the MAR, document administration of second bag using Next Bag (2 of 2) MAR action for dose of 1g (resulting in total dose of 2g)., Day of Surgery (Day of Procedure), Indication for (Active or Suspected): Prophylaxis 816 (Given - Provider: Veto Garcia MD) ceFAZolin (Ancef) 2 g in dextrose 5% 100 mL (2 x 1 g/50 mL premix bags) infusion 2 g, Intravenous, EVERY 8 HOURS, 3 doses, First dose on Mariza 04/03/21 at 1600, Last dose on Wed04/04/21 at 0800, Administer over 30 Minutes, Total dose of ceFAZolin 2 grams, administered using two ceFAZolin 1g/50mL IV bags. Infuse each ceFAZolin 1g/50mL bag over 30 minutes (100 ml/hr) for total infusion time of 60 minutes. On the MAR, document administration of first bag using New Bag (1 of 2) MAR action for dose of 1g. On the MAR, document administration of second bag using Next Bag (2 of 2) MAR action for dose of 1g (resulting in total dose of 2g)., Indication for (Active or Suspected): Prophylaxis 1529 (New Bag (1 of 2) - Provider: Naz Rodríguze RN)1621 (Next Bag (2 of 2) - Provider: Abigail Kohler RN)1651 (Stopped - Provider: Odalis Kunz LPN) 0032 (New Bag (1 of 2) - Provider: Jaycob Villareal RN)0102 (Next Bag (2 of 2) - Provider: Jaycob Villareal RN)0132 (Stopped - Provider: Jaycob Villareal RN)0800 (Due - Provider: Naz Rodríguez RN) dilTIAZem CD (Cardizem CD) capsule 120 mg 120 mg, Oral, DAILY, First dose on Wed04/04/21 at 0900, Until Discontinued, DO NOT CRUSH OR OPEN, Routine 09 (Due) heparin (porcine) (1,000 units/mL) injection 6,000 Units (COMPLETED) 6,000 Units, Intravenous, ONCE IN DIALYSIS, 1 dose, On Wed04/04/21 at 0800, For use in Dialysis only., Dialysis (Intra-Procedure), Routine 08 (Given - Provid er: Vee Mcfarland RN) hydrALAZINE (Apresoline) tablet 100 mg 100 mg, Oral, 3 TIMES DAILY, First dose on Wed04/03/21 at 2115, Until Discontinued, Routine 0030 (Not Given - Provider: Jaycob Villareal RN - Reason: Contraindicated)0900 (Due)1500 (Due) levETIRAcetam (Keppra) tablet 500 mg 500 mg, Oral, 2 TIMES DAILY, First dose on Wed04/03/21 at 2115, Until Discontinued, Routine 003 (Given - Provid er: Jaycob Villareal RN)0900 (Due) levothyroxine (Synthroid) tablet 100 mcg 100 mcg, Oral, DAILY, First dose on Wed04/04/21 at 0900, Until Discontinued, Routine 09 (Due) losartan (Cozaar) tablet 100 mg 100 mg, Oral, EVERY MORNING, First dose on Wed04/04/21 at 0700, Until Discontinued, Routine 06 (Given - Provid er: Jaycob Villareal RN) pantoprazole EC (Protonix) tablet 20 mg 20 mg, Oral, 2 TIMES DAILY, First dose on Wed04/03/21 at 2115, Until Discontinued, DO NOT CRUSH OR OPEN 2207 (Given - Provider: Jaycob Villareal RN) 0900 (Due) polyethylene glycoL (Miralax) packet 17 g 17 g, Oral, DAILY, First dose on Wed04/04/21 at 0900, Until Discontinued, Routine 0900 (Due) senna-docusate (Pericolace) 8.6-50 mg per tablet 2 tablet 2 tablet, Oral, 2 TIMES DAILY, First dose on Wed04/03/21 at 2115, Until Discontinued, Routine 2207 (Given - Provider: Jaycob Villareal RN) 0900 (Due) sodium chloride 0.9 % (flush) (BD PosiFlush Normal Saline 0.9) flush 5 mL 5 mL, Intravenous, 2 TIMES DAILY, First dose on Wed04/03/21 at 2115, Until Discontinued, Routine 2207 (Given - Provider: Jaycob Villareal RN) 0900 (Due) tacrolimus (Prograf) capsule 1 mg 1 mg, Oral, 2 TIMES DAILY, First dose on Wed04/03/21 at 2115, Until Discontinued, DO NOT SPLIT, CRUSH OR OPEN, Routine 003 (Given - Provid er: Jaycob Villareal RN)0900 (Due) PRN Medication Order 04/02/2021 04/03/2021 04/04/2021 bisacodyL (Dulcolax) suppository 10 mg 10 mg, Rectal, DAILY PRN, Starting on Wed04/03/21 at 2020, Until Wed04/04/21 at 1730, Constipation, Routine gelatin adsorbable (Gelfoam) sponge (CANCELED) ONCE PRN, Starting on Wed04/03/21 at 1053, Until Wed04/04/21 at 1730, Intra-Operative (Intra-Procedure) 1053 (Given - Provider: Odalis Tong MD)1054 (Given - Provider: Odalis Tong MD) heparin (porcine) (1,000 units/mL) injection 1,000-10,000 Units (COMPLETED) 1,000-10,000 Units, Intercatheter, ONCE IN DIALYSIS PRN, 1 dose, Starting on Wed04/04/21 at 0708, Until Wed04/04/21 at 1231, Line Care, Per Protocol, Catheter lock use catheter specified fill volume per dialysis protocol. For use in Dialysis only. Procedure ID: [id number] (Hemodialysis CVAD Procedure - Care and Maintenance) in Clinical Policies., Dialysis (Intra-Procedure), Routine 1231 (Given - Provid er: Vee Mcfarland RN) lidocaine (Xylocaine) 1% (10 mg/mL) injection 3 mg 3 mg (0.3 mL), Subcutaneous, ONCE PRN, 1 dose, Starting on Mariza 04/03/21 at 2020, Until Wed04/04/21 at 1730, for discomfort with PIV insertion, Routine ondansetron (pf) (Zofran) (2 mg/mL) injection 4-8 mg(Linked Group 1) 4-8 mg, Intravenous, EVERY 8 HOURS PRN, Starting on Mariza 04/03/21 at 2020, Until Wed04/04/21 at 1730, Nausea, Start with 4mg and if ineffective in 30 minutes, give an additional 4mg If multiple antiemetics are ordered, give ondansetron first. ondansetron (Zofran) tablet 4-8 mg(Linked Group 1) 4-8 mg, Oral, EVERY 8 HOURS PRN, Starting on Mariza 04/03/21 at 2020, Until Wed04/04/21 at 1730, Nausea, Vomiting, If multiple antiemetics are ordered, [...] EVERY 1 MIN PRN, Starting on Mariza 04/03/21 at 2020, Until Wed04/04/21 at 1730, flush, Flush pertains to all indwelling lines. Flush per protocol found in the job aid using the link provided on this medication record., Routine thrombin (bovine) (Thrombin-Jmi) solution (CANCELED) ONCE PRN, Starting on Mariza 04/03/21 at 1052, Until Wed04/04/21 at 1730, Intra-Operative (Intra-Procedure) 1052 (Given - Provider: Odalis Tong MD)1053 (Given - Provider: Odalis Tong MD) Linked Groups Order Group 1: ondansetron (Zofran) tablet 4-8 mgJump to med 4-8 mg, Oral, EVERY 8 HOURS PRN, Starting on Mariza 04/03/21 at 2020, Until Wed04/04/21 at 1730, Nausea, Vomiting, If multiple antiemetics are ordered, [...] EVERY 8 HOURS PRN, Starting on Mariza 04/03/21 at 2020, Until Wed04/04/21 at 1730, Nausea, Start with 4mg and if ineffective in 30 minutes, give an additional 4mg If multiple antiemetics are ordered, give ondansetron first. documented in this encounter Care Teams Tennis Ball Cover Cementer Relationship Specialty Start Date End Date Carroll Fuentes DO [address] [place] [address] [address] [facility] [address] [place] [address] PCP - General 09/23/11 10/20/22 documented as of this encounter
--- OUTSIDE RECORDS SUMMARY | 2024-04-22 10:53 | XMS_ITS | Encounter Summary ---
Author Organization [facility] Address [facility] [place] [address] Care Team Providers Care Investigative Reporter Name Role Phone AlfredoCarroll allison Primary Care Provider [phone] Reason for Visit * Auth/Cert Specialty Diagnoses / Procedures Referred By Shashi ko Referred To Contact Diagnoses ESRD (end stage renal disease) ESRD Procedures PRO CREAT AV FISTULA, NON-AUTOGENOUS GRAFT PLACEMENT, AV HEMODIALYSIS GRAFT, SYNTHETIC GRAFT, UPPER EXTREMITY (WRVU 12.03) Referral ID Status Reason Start Date Expiration Date Visits Re quested Visits Authorized [id number] 1 1 Encounter Details Date Type Department Care Team (Late st Contact Info) Description 04/03/2021 7:58 AM EDT Anesthesia [place] [address] Ananth Musa MD [facility] [place] [address] Veto Garcia MD [facility] [place] [address] Anesthesia Record Procedure Summary Procedure Name Responsible Anesthesiologist Anesthesia Start Time Anesthesia Stop Time PLACEMENT, AV HEMODIALYSIS GRAFT, SYNTHETIC GRAFT, UPPER EXTREMITY (WRVU 12.03) (Left) Ananth Musa MD 04/03/21 0758 04/03/21 1135 Events Date Time Event Comment 04/03/2021 0745 0757 AN Verify 0758 Start 0758 An Start Data 0802 An Induction 0804 An Intubation 0816 Anesthesia Ready 0832 Procedure Start 0902 Break/Relief In I assumed ca re for Break Relief before which we: 1. Identified the patient 2. Identified the responsible provider(s) 3. Reviewed the pertinent medical history 4. Discussed the surgical plan and course 5. Reviewed intra-op anesthesia management and issues during anesthesia 6. Set expectations for the relief (and/or post-procedure) period 7. Allowed opportunity for questions and acknowledgement of understanding Ananth Musa MD 0918 Break/Relief Out 1125 Extubation/LMA Out 1131 an stop data 1135 Recovery or ICU Handoff Randa ent care was transferred to the destination unit staff after review of the patient's medical history, current anesthetic/surgical status and plan, according to the Provider Handoff Checklist. 1135 Stop Meds Name Total fentaNYL 12.5 mcg IV Lidocaine 100 mg Propofol 200 mg ePHEDrine 35 mg Ondansetron 4 mg Dexamethasone 8 mg ceFAZolin (Ancef) 2 g in dex trose 5% 100 mL (2 x 1 g/50 mL premix bags) infusion 2 g Heparin 3,000 Units Sodium Chloride 0.9% 350 mL * Agents Name O2 Air N2O Sevoflurane (et) * Blood No blood administrations on file. Lines, Drains, and Airways Type Details Placement Removal (RETIRED) Tunneled Central Line - Double Lumen 07/30/18; 1308; other (see comments) (Right external jugular vein); other (see comments) (MedComp); other (see comments), length (specify) (14.5 Fr, 28 cm); Dr. Walt Lin; REF # [id number]; 04/16/21 (LDA Cleanup utility RA#[id number]); 1650 (LDA Cleanup utility RA#[id number]) 07/30/18 1308 by John Acosta RN 04/16/21 1650 by Reynaldo Mejia Hemodialysis AV Access Device - Single Lumen 12/13/18; graft; upper arm, right; hemodialysis; Placed in OR, present on arrival to PACU 12/13 12:01; 11/05/21; 1436 12/13/18 0000 by Patty Vargas RN 11/05/21 1436 by Wilfredo Cuenca RN (RETIRED) Peripheral IV Line - Single Lumen 12/13/18; 1815; basilic vein (medial side of arm), left; nqqj-dbo-zwruus catheter system; 18 gauge, 1 in length, 3/4 in length; [place] VAS; intradermal injection, appears comfortable; 0; 04/16/21 (LDA Cleanup utility RA#[id number]); 1650 (LDA Cleanup utility RA#[id number]) 12/13/18 1815 by Moises Guerrero RN 04/16/21 1650 by Reynaldo Mejia 12/27/20; 1637; Righ t; neck; horizontal; Tunneled HD line placement with Dr. Apple under fluoro; LDA not present upon assessment; 11/05/21 12/27/20 1637 by Dania Swartz RN 11/05/21 0000 by Wilfredo Cuenca RN (RETIRED) Peripheral IV Line - Single Lumen 03/20/21; 0707; dorsal arch vein (top of hand), left; mykp-ltz-djodby catheter system; Anatomical Landmarks; 22 gauge; LDA not present upon assessment; 05/22/21; 1241 03/20/21 0707 by Carlos Alberto Butler RN 05/22/21 1241 by Karin Keating CRNA (RETIRED) Percutaneous Central Line - Double Lumen 03/20/21; 0814; internal jugular vein, right; dialysis/apheresis catheter; other (see comments) (14.5Fr); Dr Harmon / Jag FLANAGAN; 14.5Fr x 28cm HemoFlow Ref# [id number] Lot# [id number] expires 08/17/2023; 11/05/21 (LDA not present on assessment) 03/20/21 0814 by Nara Velazco RN 11/05/21 0000 by Wilfredo Cuenca RN Supraglottic Mask Ventilation: No t Attempted (0); LMA Type: iGel; LMA Size: 4; Inserted by: Jose JONES; Removal Date: 04/03/21; Removal Time: 1125 04/03/21 0804 by Veto Garcia MD 04/03/21 1125 by Veto Garcia MD (RETIRED) Peripheral IV Line - Single Lumen 04/03/21; 1136 (prior to arrival to PACU); basilic vein (medial side of arm), right; 20 gauge; no longer indicated, removed per policy/procedure, catheter/device intact; 04/04/21; 1447 04/03/21 1136 by Naz Rodríguez RN 04/04/21 1447 by Yeni Caban LPN documented in this encounter Social History Tobacco [...] OR Notes * Anesthesia Postprocedure Evaluation - Veto Garcia MD - 04/03/2021 11:52 AM EDT Department of Anesthesiology Post-procedure Note Patient: Adama Ram Procedure Summary Date: 04/03/21 Room / Location: [address] MAIN OR Anesthesia Start: 757 Anesthesia Stop: 1134 Procedure: PLACEMENT, AV HEMODIALYSIS GRAFT, SYNTHETIC GRAFT, UPPER EXTREMITY (WRVU 12.03) (Left ) Diagnosis: (ESRD) Surgeons: Odalis Elias MD Responsible Provider: Ananth Musa MD Anesthesia Type: general ASA Status: 3 All Anesthesia Providers: Anesthesiologist: Ananth Musa MD Contracts Representative: Veto Garcia MD Vitals Value Taken Time BP 109/68 04/03/21 1145 Temp 36 ??C (96.8 ??F) 04/03/21 1136 Pulse 54 04/03/21 1152 Resp 11 04/03/21 1152 SpO2 94 % 04/03/21 1152 Pain Level 0 04/03/21 1136 Vitals shown include unvalidated device data. Patient Location: PACU/[facility] Level of Consciousness: Awake and Alert Pain Management: Satisfactory Analgesia PONV: None Cardiovascular Status: At Baseline and Hemodynamically Stable Respiratory Status: At Baseline, Room Air and Supplemental O2 (NC or FM) Postoperative Fluid Status: Intravascular EUvolemia Possible Anesthetic Complications: NONE apparent at time of evaluation Final Primary Anesthesia Type: General (The anesthetic type performed was the same as planned.) Comments: Veto Garcia MD * Anesthesia Preprocedure Evaluation - Veto Garcia MD - 04/02/2021 5:51 PM EDT Pre-Anesthesia Evaluation for: Adama Ram a 60 y.o. male. Procedure(s): PLACEMENT, AV HEMODIALYSIS GRAFT, SYNTHETIC GRAFT, UPPER EXTREMITY ([facility] Patient Active Problem List Diagnosis ??? End [...] GFR 15-29 ml/min ??? 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 detention current use of immunosuppressive drug ??? H/O [...] AV Fistula Evaluations 11/30/2019 Sabrina Velez MD [facility] INTERVENTIONL RAD ??? IR DIALYSIS ACCESS - AV FISTULA EVALUATIONS 01/07/2021 IR Dialysis Access - AV Fistula Evaluations 01/07/2021 Sabrina Velez MD [facility] INTERVENTIONL RAD ??? IR DIALYSIS ACCESS - TUNNELED LINE 07/30/2018 IR Dialysis Access - Tunneled Line 07/30/2018 Walt Lin MD [facility] INTERVENTIONL RAD ??? IR DIALYSIS ACCESS - TUNNELED LINE 08/30/2018 IR Dialysis Access - Tunneled Line 08/30/2018 Erwin Simon, REHABILITATION TECHNICIAN [facility] INTERVENTIONL RAD ??? IR DIALYSIS ACCESS - TUNNELED LINE 12/27/2020 IR Dialysis Access - Tunneled Line 12/27/2020 Kanu Apple MD [facility] INTERVENTIONL RAD ??? IR DIALYSIS ACCESS - TUNNELED LINE 01/23/2021 IR Dialysis Access - Tunneled Line 01/23/2021 Kanu Apple MD [facility] INTERVENTIONL RAD ??? IR DIALYSIS ACCESS - TUNNELED LINE 03/20/2021 IR Dialysis Access - Tunneled Line 03/20/2021 Tab Harmon MD [facility] INTERVENTIONL RAD ??? KIDNEY TRANSPLANT KIDNEY TRANSPLANT / RECIPIENT/LT Procedure Date: 11/26/2002 ??? PRO CREAT AV FISTULA, NON-AUTOGENOUS GRAFT Right 12/13/2018 PLACEMENT, AV HEMODIALYSIS GRAFT, SYNTHETIC GRAFT, UPPER EXTREMITY (WRVU 12.03) performed by Mary Garay MD at [facility] MAIN OR ? ? PRO DEBRIDEMENT SUBCUTANEOUS TISSUE 20 SQCM/< Left 02/20/2016 DEBRIDEMENT SKIN AND SUBCU, HEAD/NECK performed by Miguel Angel Moreno MD at [facility] MAIN OR ??? PRO DECOMPRESS FOREARM, BRACH ART EXPLOR Left 04/06/2018 FASCIOTOMY, FOREARM, WITH BRACHIAL ARTERY EXPLORATION (WRVU 8.41) performed by Lida Peter MDat [facility] MAIN OR ??? PRO DIRECT REPAIR RUPTURED ANEURYSM, AXILLO-BRACHIAL ARM INCIS Left 04/06/2018 @REPAIR, RUPTURED AXILLARY OR BRACHIAL ARTERY ANEURYSM BY ARM INCISION (WRVU *) performed by Lida Peter MD at [facility] MAIN OR ??? PRO EXC PAROTD, [...] 6.25) performed by Odalis Elias MD at [facility] MAIN OR ??? PRO NEGATIVE PRESSURE WOUND THERAPY, LESS THAN OR EQUAL TO 50 SQCM Left 04/19/2018 DRESSING CHANGE (VAC ASSISTED) UP TO 50SQ.CM (WRVU 0.55) performed by Odalis Elias MD [facility] OR ??? PRO REBL VES GRAFT, UP EXTREM Left 04/06/2018 REPAIR BLOOD VESSEL WITH GRAFT OTHER THAN VEIN, UPPER EXTREMITY (WRVU 15.83) performed by Lida Peter MD at [facility] MAIN OR ??? PRO RELIEVE PRESSURE ON NERVE(S) Left 04/06/2018 (MSURG) CARPAL TUNNEL (WRVU 4.82) performed by Silviano Sparks MD at [facility] MAIN OR ??? PRO REPAIR INTERMEDIATE S/A/T/E 2.6-7.5 CM 04/19/2012 REPAIR INTERMEDIATE WOUND, (NO HANDS OR FEET) 2.6 TO 7.5CM, UPPER EXTREMITY performed by SABRINA SANCHEZ at [facility] MAIN OR ? ? PRO REPAIR INTERMEDIATE S/A/T/E > 30.0 CM Left 04/14/2018 REPAIR INTERMEDIATE WOUND, (NO HANDS OR FEET) >30.0CM, UPPER EXTREMITY (WRVU 5) performed by Yimi Easton MD at [facility] MAIN OR ??? PRO REVISE MEDIAN N/CARPAL TUNNEL SURG Left 04/06/2018 MEDIAN NERVE DECOMPRESSION (CARPAL TUNNEL RELEASE) (WRVU 4.97) performed by Lida Peter MD [facility] MAIN OR ? ? PRO SPLIT GRFT TRUNK, ARM, LEG <100SQCM Left 04/26/2018 SPLIT THICK SKIN GRAFT,100 SQ CM OR LESS, ARMS (WRVU 9.9) performed by Silviano Sparks MD at [facility] MAIN OR ? ? PRO SPLIT GRFT, HEAD, FAC, HAND, FEET <100SQCM N/A 02/20/2016 SPLIT THICKNESS SKIN SPLIT GRAFT,100SQ CM OR LESS, NECK performed by Miguel Angel Moreno MD at [facility] MAIN OR ??? PRO SPLIT GRFT, TRUNK, ARM, LEG EA 100SQCM N/A 04/26/2018 EA.ADDITIONAL 100SQ.CM STSG (WRVU 1.72) performed by Silviano Sparks MD at [facility] MAIN OR ??? PRO UPPER GI ENDOSCOPY, BIOPSY N/A 05/13/2017 EGD WITH BIOPSY (WRVU 2.49) performed by Aditya Barrera MD at [facility] ENDOSCOPY ??? PRO VASCULAR SURGERY PROCEDURE UNLIST Left 11/20/2015 LIGATION\REPAIR AV FISTULA performed by Camilo Ireland MD at [facility] MAIN OR ??? PRO VASCULAR SURGERY PROCEDURE UNLIST Left 11/20/2015 EXCISION VEIN FROM HAND performed by Camilo Ireland MD at [facility] MAIN OR ??? US RENAL TRANSPLANT BIOPSY 12/31/2010 ??? US RENAL TRANSPLANT RIGHT Right 06/04/2018 US Renal Transplant Right 06/04/2018 [facility] RAD ULTRASOUND Social History Tobacco Use ??? [...] Physical Exam: Preprocedure Vitals Current as of 04/02/21 1751 No BP, pulse, respiration, SpO2, or temperature recorded. Height: Weight: BMI: IBW: Airway Assessment: Mallampati: II TM distance: >3 FB Neck ROM: full Cardiovascular Assessment: system normal Pulmonary Assessment: unlabored breathing Dental Assessment: (+) upper dentures Misc Assessment: IV access: Peripheral line Last Filed Perioperative Cognitive Screening None Anesthesia Plan: ASA 3 general, with a(n) intravenous induction 60 y.o., 90 kg (BMI of 28) male with ESRD presenting for placement of left AV graft. PMH significant for ESRD s/p placement of AV graft on right, epilepsy, gout, HTN on amlodipine, losartan, and coreg, hx of DVT, anemia, hx of kidney transplant. Anesthetic hx: No reported prior complications with anesthesia, prior GA Airway hx: prior grade 1 view w/ MAC 4. Previous iGel 4 EKG: Sinus yamilka ECHO: 2018: EF of 65% Lab Results Component Value Date HGB 11.7 (L) 03/20/2021 PLATELET 190 03/20/2021 INR 0.9 08/03/2018 NA 137 12/14/2018 K 5.5 (H) 03/20/2021 CREATININE 5.17 (H) 12/14/2018 Allergies: -- Benazepril Hcl -- Codeine -- Other (See Comments) -- Patient does not know reaction -- Hydrochlorothiazide -- Pollen Extracts -- Sneezing/runny nose NPO Status: Appropriate Anesthetic Plan: GA with LMA Standard ASA monitoring Adequate IV access Region - Other Informed Consent: Anesthetic plan and risks discussed with patient. Use of blood products discussed with who consented to blood products. Plan discussed with resident and attending. Anesthesia Screening documented in this encounter Plan of Treatment Not on file documented as of this encounter Visit Diagnoses Not on filedocumented in this encounter Administered Medications Inactive Administered Medications - up to 3 most recent administrations Medication Order MAR Action Action Date Dose Rate Site ceFAZolin (Ancef) 2 g in dextrose 5% 100 mL (2 x 1 g/50 mL premix bags) infusion 2 g, Intravenous, CAR BODY INSPECTOR TO O.R., 1 dose, On Mariza 04/03/21 [...] Indication for (Active or Suspected): Prophylaxis Given 04/03/2021 8:17 AM EDT 2 g dexamethasone (Decadron) injection Intravenous, PRN, Starting on Mariza 04/03/21 at 0809, Until Mariza 04/03/21 at 1152, Anesthesia Intra-op, Routine Given 04/03/2021 8:09 AM EDT 8 mg ePHEDrine sulfate (5 mg/mL) multi-dose injection Intravenous, PRN, Starting on Mariza 04/03/21 at 0817, Until Mariza 04/03/21 at 1152, Anesthesia Intra-op, Routine Given 04/03/2021 10:49 AM EDT 5 mg Given 04/03/2021 8:55 AM EDT 5 mg Given 04/03/2021 8:35 AM EDT 5 mg fentaNYL (pf) (50 mcg/mL) multi-dose injection Intravenous, PRN, Starting on Mariza 04/03/21 at 1054, Until Mariza 04/03/21 at 1152, Anesthesia Intra-op, Routine Given 04/03/2021 10:54 AM EDT 12.5 mcg heparin (porcine) (1,000 units/mL) injection Intravenous, PRN, Starting on Mariza 04/03/21 at 0946, Until Mariza 04/03/21 at 1152, Anesthesia Intra-op, Routine Given 04/03/2021 9:46 AM EDT 3,000 Uni ts lidocaine (pf) (Xylocaine) (20 mg/mL) 2% injection syringe Intravenous, PRN, Starting on Mariza 04/03/21 at 0803, Until Mariza 04/03/21 at 1152, Anesthesia Intra-op, Routine Given 04/03/2021 8:03 AM EDT 100 mg ondansetron (pf) (Zofran) (2 mg/mL) injection Intravenous, PRN, Starting on Mariza 04/03/21 at 1049, Until Mariza 04/03/21 at 1152, Anesthesia Intra-op, Routine Given 04/03/2021 10:49 AM EDT 4 mg propofoL (Diprivan) 10 mg/mL bolus injection (Anesthesia) Intravenous, PRN, Starting on Mariza 04/03/21 at 0804, Until Mariza 04/03/21 at 1152, Anesthesia Intra-op Given 04/03/2021 8:04 AM EDT 200 mg sodium chloride 0.9% infusion Intravenous, CONTINUOUS PRN, Starting on Mariza 04/03/21 at 0811, Until Mariza 04/03/21 at 1152, Anesthesia Intra-op New Bag 04/03/2021 9:43 AM EDT New Bag 04/03/2021 8:11 AM EDT documented in this encounter Care Teams Investigative Reporter Relationship Specialty Start Date End Date Carroll Fuentes DO [address] [place] [address] PCP - General 09/23/11 10/20/22 documented as of this encounter
--- OUTSIDE RECORDS SUMMARY | 2024-04-22 10:53 | XMS_ITS | Encounter Summary ---
Author Organization [facility] [place] [address] Care Team Providers Care Tower Switch Operator Name Role Phone Carroll Fuentes DO Primary Care Provider Reason for Referral * Diagnostic Test (Routine) - Closed Specialty Diagnoses / Procedures Referred By Shashi ko Referred To Contact Radiology Diagnoses ESRD (end stage renal disease) Procedures IR Dialysis Access - Tunneled Line Carroll Baires MD [facility] [place] [address] [place] [address] Referral ID Status Reason Start Date Expiration Date V isits Requested Visits Authorized [id number] Closed Specialty Service Requested 03/12/2021 09/09/2022 1 1 Reason for Visit * Diagnostic Test (Routine) - Closed Specialty Diagnoses / Procedures Referred By Shashi ko Referred To Contact Radiology Diagnoses ESRD (end stage renal disease) Procedures IR Dialysis Access - Tunneled Line Carroll Baires MD [facility] [place] [address] [place] [address] Referral ID Status Reason Start Date Expiration Date V isits Requested Visits Authorized [id number] Closed Specialty Service Requested 03/12/2021 09/09/2022 1 1 Encounter Details Date Type Department Care Team (Latest Contact Info) Description 03/20/2021 6:32 AM EDT - 03/20/2021 11:59 PM EDT Hospital En[place] [address] Carroll Baires MD [facility] [place] [address] ESRD (end stage renal disease) Discharge Disposition: [...] Sign Reading Time Taken Comments Blood Pressure 124/88 03/20/2021 8:20 AM EDT Pulse 51 03/20/2021 8:20 AM EDT Temperature 36 ??C (96.8 ??F) 03/20/2021 8:30 AM EDT Respiratory Rate 12 03/20/2021 8:20 AM EDT Oxygen Saturation 97% 03/20/2021 8:20 AM EDT Inhaled Oxygen Concentration - - Weight - - Height - - Body Mass Index - - documented in this encounter Discharge Instructions * Discharge Instructions* Nara Velazco RN - 03/20/2021 8:10 AM EDT [facility] Vascular and Interventional Radiology Discharge Instructions [...] is during regular office hours, please call [phone]. If it is after regular office hours, or on weekends or holidays, please call [phone] and ask to speak to the Chlorine Cell Tender venereal disease control head for Interventional Radiology. You have received medication [...] as of this encounter Progress Notes * Nara Velazco RN - 03/20/2021 7:25 AM EDT [facility] DATABASE Name: CHRISTY AMBROSE Date of : 1960 AGE: 60 y.o. [address]: [address] [place] [address] (home) Mobile: Telephone Information: Referring Provider: Carroll Baires REASON FOR VISIT: Order Questions Answers Where will study be performed? [facility] Radiology [120] Is the patient on anticoagulant / antiplatelet therapy ? Aspirin Reason for exam and clinical history: CVC exchange. Current CVC is very positional and has poor flows depite cath-ronald. Plan Planned procedure: HD catheter exchange (03/14/21640) Labs to be performed day of procedure: Potassium (03/14/21640) Sedation: No Sedation (03/14/21640) Prophylactic antibiotic : None (03/14/21640) Contrast: No contrast (03/14/21640) Additional medications for procedure: Lidocaine (03/14/21640) Medications to discontinue (and days held): None (03/14/21640) Cytopathology presence needed: No (03/14/21640) Case Urgency:: G- Other (non E or F elective cases) (03/14/21640) Allergies Allergen Reactions ??? Benazepril Hcl ??? [...] ml/min N18.4 ??? 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 rodent exterminator current use of immunosuppressive drug Z79.899 [...] N18.6 Date/Procedure Meds Given/Comments 08/30/18 Tunneled HD Cath??Exchange Fentanyl 100mcg IV 11/30/19 RUE??Ffistulagram??with multiple PTAs?? Fentanyl??175??mcg IV; Versed 3.5??mg IV (pt awake for the most part,??BP??sensitive to sedation even with half doses). 12/27/20??Tunneled??Line??Placement Fentanyl??250??mcg IV, tolerated well 01/07/2021??RUE fistulagram??and tunneled line exchange Fentanyl??50??mcg IV Versed??1??mg IV 01/23/21 HD Tunneled line exchange Local only, tolerated well 03/20/21 HD Tunneled line exchange / angioplasty at [facility] Local only, tolerated well ? 0930 to procedure room 4 via stretcher. Onto [...] H&P Notes * Aaron Duran PA - 03/14/2021 6:28 AM EDT Images from the original note were not included. Interventional Radiology Focused Pre-procedure H&P: PCP: Carroll Fuentes DO Referring Provider: Carroll Baires Planned procedure: HD catheter exchange Procedure indication: ESRD, malfunctioning catheter IR workflow: Procedure request received through Interventional Radiology eDH order queue. Order Questions Answers Where will study be performed? [facility] Radiology [120] Is the patient on anticoagulant / antiplatelet therapy ? Aspirin Reason for exam and clinical history: CVC exchange. Current CVC is very positional and has poor flows depite cath-ronald. History of present illness: Per chart review, Christy Ambrose is a 60 y.o. male with ESRD who had unsuccessful declot of right UE AV fistula with subsequent exchange of tunneled right HD catheter on 01/07/21. He also presented on 01/23/21 for subsequent exchange of tunneled Palindrome HD catheter. He presents to Interventional Radiology to undergo catheter exchange in setting of ESRD and poor flow. Remainder of patient's medical and surgical history, allergies, medications, and social/family history obtained below as previously outlined in patient's medical record. IR history: Date/Procedure Meds given/comments 08/30/18 Tunneled HD Cath??Exchange Fentanyl 100mcg IV 11/30/19 RUE??Ffistulagram??with multiple PTAs?? Fentanyl??175??mcg IV; Versed 3.5??mg IV (pt awake for the most part,??BP??sensitive to sedation even with half doses). 12/27/20??Tunneled??Line??Placement Fentanyl??250??mcg IV, tolerated well 01/07/2021??RUE fistulagram??and tunneled line exchange Fentanyl??50??mcg IV Versed??1??mg IV 01/23/21 HD Tunneled line exchange Local only, tolerated well Imagin01/23/21 Assessment: 60 y.o. male with ESRD and malfunctioning CVC catheter presenting to Interventional Radiology for catheter exchange. Plan Planned procedure: HD catheter exchange Labs to be performed day of procedure: Potassium Sedation: No Sedation Prophylactic antibiotic : None Contrast: No contrast Additional medications for procedure: Lidocaine Medications to discontinue (and days held): None [...] ml/min N18.4 ??? 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 [facility] current use of immunosuppressive drug Z79.899 ??? [...] AV Fistula Evaluations 11/30/2019 Sabrina Velez MD [facility] INTERVENTIONL RAD ??? IR DIALYSIS ACCESS - AV FISTULA EVALUATIONS 01/07/2021 IR Dialysis Access - AV Fistula Evaluations 01/07/2021 Sabrina Velez MD [facility] INTERVENTIONL RAD ??? IR DIALYSIS ACCESS - TUNNELED LINE 07/30/2018 IR Dialysis Access - Tunneled Line 07/30/2018 Walt Lin MD [facility] INTERVENTIONL RAD ??? IR DIALYSIS ACCESS - TUNNELED LINE 08/30/2018 IR Dialysis Access - Tunneled Line 08/30/2018 Erwin Simon APRN [facility] INTERVENTIONL RAD ??? IR DIALYSIS ACCESS - TUNNELED LINE 12/27/2020 IR Dialysis Access - Tunneled Line 12/27/2020 Kanu Apple MD [facility] INTERVENTIONL RAD ??? IR DIALYSIS ACCESS - TUNNELED LINE 01/23/2021 IR Dialysis Access - Tunneled Line 01/23/2021 Kanu Apple MD [facility] INTERVENTIONL RAD ??? KIDNEY TRANSPLANT KIDNEY TRANSPLANT / RECIPIENT/LT Procedure Date: 11/26/2002 ??? PRO CREAT AV FISTULA, NON-AUTOGENOUS GRAFT Right 12/13/2018 PLACEMENT, AV HEMODIALYSIS GRAFT, SYNTHETIC GRAFT, UPPER EXTREMITY (WRVU 12.03) performed by Mary Garay MD at [facility] MAIN OR ? ? PRO DEBRIDEMENT SUBCUTANEOUS TISSUE 20 SQCM/< Left 02/20/2016 DEBRIDEMENT SKIN AND SUBCU, HEAD/NECK performed by Miguel Angel Moreno MD at [facility] MAIN OR ??? PRO DECOMPRESS FOREARM, BRACH ART EXPLOR Left 04/06/2018 FASCIOTOMY, FOREARM, WITH BRACHIAL ARTERY EXPLORATION (WRVU 8.41) performed by Lida Peter, Edgard [facility] OR ??? PRO DIRECT REPAIR RUPTURED ANEURYSM, AXILLO-BRACHIAL ARM INCIS Left 04/06/2018 @REPAIR, RUPTURED AXILLARY OR BRACHIAL ARTERY ANEURYSM BY ARM INCISION (WRVU *) performed by Lida Peter MD at [facility] OR ??? PRO EXC PAROTD, TOTAL, UNILAT RAD NECK Left 02/05/2016 @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, TOTAL, WITH UNILATERAL RADICAL NECK DISSECTION performed by Miguel Angel Moreno MD at [facility] OR ??? PRO EXC SKIN MALIG 3.1-4CM FACE, FACIAL Left 02/05/2016 EXC MALIGNANT LESION, 3.1 TO 4.0CM, FACE performed by Miguel Angel Moreno MD at [facility] OR ? ? PRO EXC SKIN MALIG >4CM TRUNK, ARM, LEG 04/19/2012 EXC MALIGNANT LESION, MICHAEL > 4.0CM, TRUNK performed by SABRINA SANCHEZ at [facility] OR ??? PRO LAP, RADICAL NEPHRECTOMY Left 05/31/2017 @LAPAROSCOPY, RADICAL NEPHRECTOMY (WRVU 25.06) performed by Jax Mills MD at [facility] OR ??? PRO LIGATN ANGIOACCESS AV FISTULA Left 04/19/2018 LIGATION OR BANDING OF HEMODIALYSIS FISTULA OR GRAFT UPPER EXTREMITY (WRVU 6.25) performed by Odalis Elias MD at [facility] OR ??? PRO NEGATIVE PRESSURE WOUND THERAPY, LESS THAN OR EQUAL TO 50 SQCM Left 04/19/2018 DRESSING CHANGE (VAC ASSISTED) UP TO 50SQ.CM (WRVU 0.55) performed by Odalis Elias MD [facility] OR ??? PRO REBL VES GRAFT, UP EXTREM Left 04/06/2018 REPAIR BLOOD VESSEL WITH GRAFT OTHER THAN VEIN, UPPER EXTREMITY (WRVU 15.83) performed by Lida Peter MD at [facility] MAIN OR ??? PRO RELIEVE PRESSURE ON NERVE(S) Left 04/06/2018 (MSURG) CARPAL TUNNEL (WRVU 4.82) performed by Silviano Sparks MD at [facility] OR ??? PRO REPAIR INTERMEDIATE S/A/T/E 2.6-7.5 CM 04/19/2012 REPAIR INTERMEDIATE WOUND, (NO HANDS OR FEET) 2.6 TO 7.5CM, UPPER EXTREMITY performed by SABRINA SANCHEZ at [facility] OR ? ? PRO REPAIR INTERMEDIATE S/A/T/E > 30.0 CM Left 04/14/2018 REPAIR INTERMEDIATE WOUND, (NO HANDS OR FEET) >30.0CM, UPPER EXTREMITY (WRVU 5) performed by Yimi Easton MD at [facility] OR ??? PRO REVISE MEDIAN N/CARPAL TUNNEL SURG Left 04/06/2018 MEDIAN NERVE DECOMPRESSION (CARPAL TUNNEL RELEASE) (WRVU 4.97) performed by Lida Peter MD [facility] OR ? ? PRO SPLIT GRFT TRUNK, ARM, LEG <100SQCM Left 04/26/2018 SPLIT THICK SKIN GRAFT,100 SQ CM OR LESS, ARMS (WRVU 9.9) performed by Silviano Sparks MD at [facility] MAIN OR ? ? PRO SPLIT GRFT, HEAD, FAC, HAND, FEET <100SQCM N/A 02/20/2016 SPLIT THICKNESS SKIN SPLIT GRAFT,100SQ CM OR LESS, NECK performed by Miguel Angel Moreno MD at [facility] OR ??? PRO SPLIT GRFT, TRUNK, ARM, LEG EA 100SQCM N/A 04/26/2018 EA.ADDITIONAL 100SQ.CM STSG (WRVU 1.72) performed by Silviano Sparks MD at [facility] MAIN OR ??? PRO UPPER GI ENDOSCOPY, BIOPSY N/A 05/13/2017 EGD WITH BIOPSY (WRVU 2.49) performed by Aditya Barrera MD at [facility] ENDOSCOPY ??? PRO VASCULAR SURGERY PROCEDURE UNLIST Left 11/20/2015 LIGATION\REPAIR AV FISTULA performed by Camilo Ireland MD at [facility] MAIN OR ??? PRO VASCULAR SURGERY PROCEDURE UNLIST Left 11/20/2015 EXCISION VEIN FROM HAND performed by Camilo Ireland MD at [facility] MAIN OR ??? US RENAL TRANSPLANT BIOPSY 12/31/2010 ??? US RENAL TRANSPLANT RIGHT Right 06/04/2018 US Renal Transplant Right 06/04/2018 [facility] RAD ULTRASOUND Social history and habits: Social History Tobacco Use ??? Smoking status: Former Smoker Packs/day: 0.25 Years: 1.50 Pack years: 0.37 Types: Cigarettes Quit date: 12/03/2000 Years since quittin.2 ??? Smokeless tobacco: Former User Quit date: [...] in interventional radiology the day of procedure) 03/14/2021 PANCHITO Wallace documented in this encounter Plan of Treatment Not on file documented as of this encounter Procedures Procedure Name Priority Date/Time Associated Diagnosis Comments IR DIALYSIS ACCESS - TUNNELED LINE Routine 03/20/2021 8:34 AM EDT ESRD (end stage renal disease) HC HEMOGRAM Routine 03/20/2021 7:05 AM EDT ESRD (end stage renal disease) HC POTASSIUM Routine 03/20/2021 7:05 AM EDT ESRD (end stage renal disease) documented in this encounter Results * IR Dialysis Access - Tunneled Line (03/20/2021 8:34 AM EDT) Anatomical Region Laterality Modality Abdomen X-Ray Angiograph y Narrative 03/21/2021 5:24 PM EDT Interventional Radiology Procedure Note Procedure: Exchange of right tunneled central venous cuffed catheter under fluoroscopic guidance Indication: End stage renal disease, malfunctioning venous catheter, chcf durable venous access for dialysis Procedure Summary: ?1.) Superior vena cavography 1.) Percutaneous transluminal angioplasty balloon disruption of catheter-related sheath 2.) Tunneled central venous catheter exchange Pre-procedure: Informed consent for the procedure including risks, benefits and alternatives was obtained and time-out was performed prior to the procedure. The site was prepared and draped using all elements of maximal sterile barrier technique. ?? Sedation: None Technique: A smooth stucco resurfacer fluoroscopic image of the chest showed no malposition or kinks in the hemodialysis catheter. Heparin lock was aspirated from each of the two catheter lumens. 1% lidocaine was administered subcutaneously at the catheter exit site. Catheter cuff was freed with blunt dissection. Catheter was partially withdrawn into upper superior vena cava and contrast injection performed. A 0.035 stiff glidewire was advanced through each catheter lumen and into the inferior vena cava. The existing central venous catheter was removed. A peel-away sheath was advanced into the subcutaneous tract. An 12 mm x 4 cm [place] DELICATESS[employer] GOODS STOCK CLERK balloon was advanced over one of the wires and catheter-related fibrin sheath disruption was performed. The balloon was deflated and removed over the wire. A new 14.5 Fr 28 cm cuffed dialysis catheter advanced. Catheter tip location was identified fluoroscopically and a permanent image was stored. The catheter was secured to the skin with 2-0 prolene. Both lumens flushed and aspirated at greater than 5 mL per second. A sterile dressing was applied. Contrast: iohexoL (Omnipaque) (350 mg/mL) 15 mL IV Fluoroscopy: 15.7 mGy Estimated blood loss: 5 mL Complications: No immediate Impression: Indwelling catheter appropriately positioned within the distal superior vena cava. Superior vena cavography demonstrated widely patent central veins. Exchange of previous palindrome catheter with 14.5 Fr 28 cm cuffed dialysis performed with catheter tip in the right atrium. The catheter may be used immediately. Associate provider: Veto Goodman PA-C Attending of record: Tab Harmon MD I, Dr. Harmon, was NOT present throughout the procedure. 03/20/2021 Carroll Baires MD IMG IR ORDERABLES * (ABNORMAL) Potassium (03/20/2021 7:05 AM EDT) Potassium 5.5(H) 3.5 - 5.0 mmol/L [facility] Comment: Please note: ??Patients with WBC >100,000 may have falsely elevated Potassium levels. ??For accurate Potassium quantification in these patients send serum separator tube (gold top) for subsequent determinations. ??Contact the Clinical Chemistry Laboratory if there are any questions. Blood 03/20/2021 7:05 AM EDT 03/20/2021 7:15 AM EDT Narrative Resulting Agency Comment Spec In Lab Carroll Baires MD CHEMISTRY ORDERABLES [facility] [place] [address] * (ABNORMAL) Hemogram (03/20/2021 7:05 AM EDT) White Blood Cell 5.6 4.0 - 9.5 x10(3)/mc L [facility] Red Blood Cell 3.53(L) 4.58 - 5.54 x10(6)/mc L [facility] Hemoglobin 11.7(L) 13.7 - 16.5 gm/dL [facility] Hematocrit 35.8(L) 40.5 - 48.5 % [facility] Mean Cell Volume 101.4(H) 82.9 - 93.1 fL [facility] Mean Cell Hemoglobin 33.1(H) 27.5 - 32.1 pg [facility] Mean Cell Hemoglobin Concentration 32.7 32.0 - 35.7 gm/dL [facility] Platelet 190 145 - 357 x10(3)/mc L [facility] RDW Standard Deviation 49.2(H) 36.0 - 45.0 fL [facility] RDW coefficient of variation 13.3 11.4 - 13.8 % [facility] Mean Platelet Volume 9.0 7.6 - 12.9 fL [facility] NRBC% auto 0.0 % [facility] NRBC Absolute 0.000 0.000 - 0.000 x10(3)/mc L [facility] Blood 03/20/2021 7:05 AM EDT 03/20/2021 7:15 AM EDT Narrative Resulting Agency Comment Spec In Lab Carroll Baires MD HEMATOLOGY ORDERABLE S Performing Organization Address City/State/[facility] Co de Phone Number [facility] [place] [address] documented in this encounter Visit Diagnoses Diagnosis ESRD (end stage renal disease) End stage renal disease documented in this encounter Administered Medications Inactive Administered Medications - up to 3 most recent administrations Medication Order MAR Action Action Date Dose Rate Site iohexoL (Omnipaque) (350 mg/mL) injection solution 100 mL 100 mL, Intravenous, ONCE PRN, 1 dose, Starting on Mariza 03/20/21 at 0833, Until Mariza 03/20/21 at 0835, Per Protocol, Warning Vesicant/Irritant Medication , Routine Given 03/20/2021 8:35 AM EDT 15 mLs lidocaine (Xylocaine) 1% (10 mg/mL) injection 10 mg 10 mg, Subcutaneous, ONCE, 1 dose, On Mariza 03/20/21 at 0715, For use in Interventional Radiology (IR) only for procedure with direct provider supervision and verbal order., Angio/IR (Day of Procedure), Routine Given 03/20/2021 8:10 AM EDT 10 mg sodium chloride 0.9 % (flush) (BD PosiFlush Normal Saline 0.9) flush 5 mL 5 mL, Intravenous, 2 TIMES DAILY, First dose on Mariza 03/20/21 at 0900, Until Discontinued, Angio/IR (Day of Procedure), Routine Given 03/20/2021 9:00 AM EDT 5 mLs documented in this encounter Care Teams Tower Switch Operator Relationship Specialty Start Date End Date Carroll Fuentes DO [address] [place] [address] PCP - General 09/23/11 10/20/22 documented as of this encounter
--- OUTSIDE RECORDS SUMMARY | 2024-04-22 10:53 | XMS_ITS | Encounter Summary ---
Author Organization Formerly [facility] Address [facility] [place] [place] [address] Care Team Providers Care Power Generation Engineer Name Role Phone Carroll Fuentes DO Primary Care Provider [phone] Reason for Referral * Diagnostic Test (Routine) - Closed Specialty Diagnoses / Procedures Referred By Shashi ko Referred To Contact Radiology Diagnoses ESRD (end stage renal disease) Procedures IR Dialysis Access - Tunneled Line Carroll Baires MD [facility] [place] [address] [facility] [place] [address] Referral ID Status Reason Start Date Expiration Date V isits Requested Visits Authorized [id number] Closed Specialty Service Requested 03/12/2021 09/09/2022 1 1 Encounter Details Date Type Department Care Team (Late st Contact Info) Description 03/12/2021 Orders Only [place]ph[place] [address] Carroll Baires MD [facility] [place] [address] ESRD (end stage renal disease) [...] End stage renal disease, malfunctioning venous catheter, care home durable venous access for dialysis Procedure Summary: [...] barrier technique. ?? Sedation: None Technique: A concession attendant fluoroscopic image of the chest showed no [...] tract. An 12 mm x 4 cm [place] W[employer]IF[employer] CHEMIST balloon was advanced over one of the [...] 03/20/2021 Carroll Baires MD IMG IR ORDERABLES documented in this encounter Visit Diagnoses Diagnosis ESRD (end stage renal disease) End stage renal disease ESRD (end stage renal disease) End stage renal disease documented in this encounter Care Teams Power Generation Engineer Relationship Specialty Start Date End Date Carroll Fuentes DO [address] [facility] [address] [place] [address] PCP - General 09/23/11 10/20/22 documented as of this encounter
--- OUTSIDE RECORDS SUMMARY | 2024-04-22 10:53 | XMS_ITS | Encounter Summary ---
Author Organization Formerly [facility] Address [facility] [place] [address] Care Team Providers Care Oven Dauber Name Role Phone Carroll Fuentes DO Primary Care Provider Encounter Details Date Type Department Care Team (Late st Contact Info) Description 04/15/2021 Orders Only Neph[place] [address] Trever Boyd MD [facility] [place] [address] ESRD (end stage renal disease) Social History [...] disease documented in this encounter Care Teams Oven Dauber Relationship Specialty Start Date End Date Carroll Fuentes DO [address] [place] [address] PCP - General 09/23/11 10/20/22 documented as of this encounter
--- OUTSIDE RECORDS SUMMARY | 2024-04-22 10:53 | XMS_ITS | Encounter Summary ---
Author Organization [facility] Address [facility] [address] Care Team Providers Care Art Preparator Name Role Phone AlfredoCarroll geiger Primary Care Provider [phone] Reason for Visit * Consultation (Routine) - Closed Specialty Diagnoses / Procedures Referred By Shashi ko Referred To Contact Vascular Surgery Diagnoses ESRD (end stage renal disease) Trever Boyd MD [facility] [place] [address] [facility] [place] [facility] [address] [place] [address] Referral ID Status Reason Start Date Expiration Date V isits Requested Visits Authorized [id number] Closed Specialty Service Requested 01/24/2021 01/24/2022 1 1 Encounter Details Date Type Department Care Team (Late st Contact Info) Description 02/20/2021 9:30 AM EDT Office Visit Vascular [place] [address] Odalis Elias MD [facility] [place] [address] ESRD (end stage renal disease) [...] Sign Reading Time Taken Comments Blood Pressure 92/58 02/20/2021 9:[address] Elias aware; pt denies dizziness Pulse 61 02/20/2021 9:52 AM EDT Temperature - - Respiratory Rate - - Oxygen Saturation - - Inhaled Oxygen Concentration - - Weight 90.7 kg (200 lb) 02/20/2021 9:52 AM EDT reported Height 177.8 cm (5' 10) 02/20/2021 9:5 2 AM EDT Body Mass Index 28.7 02/20/2021 9:52 AM EDT documented in this encounter Progress Notes * Odalis Elias MD - 02/20/2021 10:45 AM EDT OUTPATIENT VASCULAR SURGERY FOLLOW-UP Reason for Visit: ESRD History of Present Illness: Adama Ram is a 60 y.o. male here for follow-up evaluation in need of permanent HD access. He has h/o ESRD s/p transplant in [...] to discuss options for future permanent access. He is not able give a clear history and is unaware of what medication he takes. Atherosclerotic Risk Factors: (n) DM (y) HTN (n) CAD (n) CHF (n) Hyperlipidemia (n) CVA reports that he quit smoking about 20 years ago. His smoking use included cigarettes. He has a 0.38pack-year smoking history. He quit smokeless tobacco use about 19 years ago. Access Procedures 12/2018 R brachio-axillary graft (Accuseal) 04/2018 Ligation [...] N18.4 ??? 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 aspirin 81 mg Tablet, Delayed Release (E.C.), Take 1 tablet by mouth daily., Disp: 30 tablet, Rfl: 3 ??? dilTIAZem (CARTIA XT) 120 mg Capsule, Sust. Release 24 hr, Take 1 capsule by mouth daily., Disp: 90 capsule, Rfl: 0 ??? multivitamin Capsule, Take 1 capsule by mouth daily., Disp: 30 capsule, Rfl: 0 ??? allopurinol (ZYLOPRIM) 100 mg Tablet, Take 1 tablet by mouth daily., Disp: 30 tablet, Rfl: 11 ??? acetaminophen (TYLENOL) 500 mg Tablet, Take 2 tablets by mouth every 6 hours., Disp: 30 tablet,Rfl: 1 ??? amLODIPine (NORVASC) 10 mg Tablet, Take 1 tablet by mouth daily., Disp: 30 tablet, Rfl: 0 ??? levETIRAcetam (KEPPRA) 500 mg Tablet, Take 1 tablet by mouth 2 times daily., Disp: 60 tablet, Rfl: 0 ??? losartan (COZAAR) 100 mg Tablet, Take 1 tablet by mouth every morning., Disp: 60 tablet, Rfl: 0 ??? pantoprazole (PROTONIX) 20 mg Tablet, Delayed Release (E.C.), Take 1 tablet by mouth 2 times daily., Disp: 60 tablet, Rfl: 0 ??? calcium carbonate (TUMS) 200 mg calcium (500 mg) Tablet, Chewable, Take 2 tablets by mouth 3 times daily (with meals)., Disp: 90 tablet, Rfl: 0 ??? hydrALAZINE (APRESOLINE) 100 mg Tablet, Take 1 tablet by mouth 3 times daily., Disp: 90 tablet,Rfl: 0 ??? tacrolimus (PROGRAF) 1 mg Capsule, Take 1 capsule by mouth 2 times daily., Disp: 60 capsule, Rfl: 0 ??? carvedilol (COREG) 12.5 mg Tablet, Take 1 tablet by mouth 2 times daily (with meals)., Disp: 60tablet, Rfl: 3 ??? levothyroxine (SYNTHROID) 100 mcg [...] - Denies Functional Status/Social Hx: Lives in correction, Drives Car, Denies Tobacco Use Family Hx: Negative for Thrombosis, Bleeding Disorders Physical Exam: BP 92/58 (BP Location (NBP): Left arm, Patient Position: Sitting, BP Cuff Sizes: Adult (25-34 cm)) Pulse 61 Ht 177.8 cm (5' 10) Wt 90.7 kg (200 lb) Comment: reported BMI 28.70 kg/m?? General - NAD, appears stated age [...] and Plan: 60 y.o. male with ESRD in need of permanent access. He has outflow obstructionon the R arm. We will plan for a LUE AV graft on a Wednesday or . Hold couamdin for 5 days prior to surgery. documented in this encounter Plan of Treatment Scheduled Referrals Name Type Priority Associated Diagnoses Orde r Schedule Referral to Vascular Surgery Outpatient Referral Routine ESRD (end stage renal disease) Ordered: 01/24/2021 documented as of this encounter Visit Diagnoses Diagnosis ESRD (end stage renal disease) End stage renal disease documented in this encounter Care Teams Art Preparator Relationship Specialty Start Date End Date Carroll Fuentes DO [address] [place] [address] PCP - General 09/23/11 10/20/22 documented as of this encounter
--- OUTSIDE RECORDS SUMMARY | 2024-04-22 10:53 | XMS_ITS | Encounter Summary ---
Author Organization [facility] [place] [address] Care Team Providers Care Mender Hand Name Role Phone Carroll Fuentes DO Primary Care Provider [phone] Reason for Referral * Diagnostic Test (Emergency) - Closed Specialty Diagnoses / Procedures Referred By Contmike t Referred To Contact Radiology Diagnoses ESRD (end stage renal disease) Procedures IR Dialysis Access - Tunneled Line Gaby Mesa MD [facility] [place] [address] [place] [address] Referral ID Status Reason Start Date Expiration Date V isits Requested Visits Authorized [id number] Closed Specialty Service Requested 12/27/2020 06/28/2022 1 1 Reason for Visit * Diagnostic Test (Emergency) - Closed Specialty Diagnoses / Procedures Referred By Shashi ko Referred To Contact Radiology Diagnoses ESRD (end stage renal disease) Procedures IR Dialysis Access - Tunneled Line Gaby Mesa MD [facility] [place] [address] [place] [address] Referral ID Status Reason Start Date Expiration Date V isits Requested Visits Authorized [id number] Closed Specialty Service Requested 12/27/2020 06/28/2022 1 1 Encounter Details Date Type Department Care Team (Latest Contact Info) Description 12/27/2020 1:02 PM EDT - 12/27/2020 11:59 PM EDT Hospital [place] [address] Gaby Mesa MD ESRD (end stage renal disease) Discharge Disposition: [...] Sign Reading Time Taken Comments Blood Pressure 131/71 12/27/2020 5:00 PM EDT Pulse 48 12/27/2020 4:45 PM EDT Temperature 36.6 ??C (97.8 ??F) 12/27/2020 5:00 PM ED T Respiratory Rate 16 12/27/2020 5:00 PM EDT Oxygen Saturation 98% 12/27/2020 5:00 PM EDT Inhaled Oxygen Concentration - - Weight - - Height - - Body Mass Index - - documented in this encounter Discharge Instructions * Discharge Instructions* Dania Swarzt RN - 12/27/2020 3:49 PM EDT [facility] Vascular and Interventional Radiology Discharge Instructions for [...] is during regular office hours, please call [phone]. If it is after regular office hours, or on weekends or holidays, please call [phone] and ask to speak to the Wrapping Machine Operator water purification chemist for Interventional Radiology. You have received medication [...] tablet by mouth daily. 90 tablet 2018 doxycycline (VIBRAMYCIN) 100 mg Capsule Take 1 capsule by mouth 2 times daily for 10 days. 20 capsule 12/28/2020 01/07/2021 dilTIAZem (CARTIA XT) 120 mg Capsule, Sust. [...] as of this encounter Progress Notes * Veto Goodman PA - 12/27/2020 4:40 PM EDT Interventional Radiology - Brief Progress Note Patient Name: Christy Ginna Leanna : [id number] MR#: [id number] Patient presented to IR for dialysis catheter placement 12/27. Patient noted to have tick on left lower abdomen with localized circumferential rash. Tick removed by RN. Spoke with patient's PCP, Dr Carroll Fuentes, who recommended treatment for acute lyme. Prescribed 10 days doxycycline to [facility] in [facility]. * Dania Swartz RN - 12/27/2020 3:11 PM EDT [facility] Name: CHRISTY AMBROSE Date of : 1960 AGE: 60 y.o. [address]: [address] [place] [id number] (home) Mobile: Telephone Information: Referring Provider: Gaby Mesa REASON FOR VISIT: Tunneled line placement Order Questions Answers Where will study be performed? [facility] Radiology [120] Is the patient on anticoagulant / antiplatelet therapy ? Aspirin Reason for exam and clinical history: established HD pt with thrombosed AVG. needs tunneled HD catheter for treatment Allergies Allergen Reactions ??? Benazepril Hcl ??? [...] ml/min N18.4 ??? 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 MCFP current use of immunosuppressive drug Z79.899 ??? [...] End stage chronic kidney disease N18.6 Date/Procedure ?Meds given/comments 08/30/18 Tunneled HD Cath exchange Fentanyl 100mcg IV 11/30/19 RUE fistulagram with multiple PTAs Fentanyl 175 mcg IV; Versed 3.5 mg IV (pt awake for the most part, bp sensitive to sedation even with half doses) 12/27/20 Tunneled line placement Fentanyl 250 mcg IV, tolerated well ?1530 to procedure room 3 via stretcher. Onto table supine. All monitors, O2, safety strap in place. Meds per protocol. ?? Laboratory Results: Lab Results Component Value Date INR 0.9 08/03/2018 Lab Results Component Value Date CREATININE 5.17 (H) 12/14/2018 Lab Results Component Value Date K 4.5 12/14/2018 Lab Results Component Value Date PLATELET 172 12/13/2018 documented in this encounter H&P Notes * Veto Goodman PA - 12/27/2020 9:06 AM EDT Images from the original note were not included. Interventional Radiology Focused Pre-procedure H&P: PCP: Carroll Fuentes DO Referring Provider: Gaby Mesa Planned procedure: Tunneled dialysis catheter placement Procedure indication: ESRD, malfunctioning dialysis access, [facility] durable venous access for dialysis IR workflow: Procedure request received through Interventional Radiology eDH order queue. Order Questions Answers Where will study be performed? [facility] Radiology [120] Is the patient on anticoagulant / antiplatelet therapy ? Aspirin Reason for exam and clinical history: established HD pt with thrombosed AVG. needs tunneled HD catheter for treatment History of present illness: Per chart review, Christy Ambrose is a 60 y.o. male who presents to Interventional Radiology to undergo placement of dialysis catheter and subsequent fistulagram in setting of ESRD and non-accessible fistula. ?? This is a patient who underwent creation of right brachioaxillary 4-7 mm graft by Vascular Surgery on 12/13/2018 who dialyzes at [facility]. The clinic contacted IR today to report inability to access the patient's graft, with suspicion of possible thrombosis. Patient to present to IR for dialysis catheter placement until fistulagram can be performed. Multiple prior dialysis catheters in setting of nonfunctional [facility] access. Prior intervention by IR on 11/30/2019 - 1. ??Right arm brachio-axillary AV graft was thrombosed. ?? 2. ??Mechanical declot, 8mm SENIOR RESEARCH CONSULTANT of venous anastomosis, 6mm SENIOR RESEARCH CONSULTANT of arterial anastomosis. ?? 3.?Flow from anastomosis centrally, axilla to??subclavian??vein, via??three channels ?? 4.?3cm moderate to??severe stenosis right??central subclavian and??innominate veins, mild residual stenosis after 18mm SENIOR RESEARCH CONSULTANT. Medical history notable for hypertension, gout, traumatic brain injury. Remainder of patient's medical and surgical history, allergies, medications, and social/family history obtained below as previously outlined in patient's medical record. IR history: Date/Procedure ?Meds given/comments 08/30/18 Tunneled HD Cath exchange Fentanyl 100mcg IV 11/30/19 RUE fistulagram??with multiple PTAs?? Fentanyl??175??mcg IV; Versed 3.5??mg IV (pt awake for the most part, bp sensitive to sedation even with half doses) Imaging: Assessment: 60 y.o. male with ESRD and nonfunctional graft presenting to Interventional Radiology for tunneled catheter placement with followup fistulagram. Plan Planned procedure: Tunneled dialysis catheter placement Labs to be performed day [...] ml/min N18.4 ??? 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 MCFP current use of immunosuppressive drug Z79.899 ??? [...] AV Fistula Evaluations 11/30/2019 Sabrina Velez MD [facility] INTERVENTIONL RAD ??? IR DIALYSIS ACCESS - TUNNELED LINE 07/30/2018 IR Dialysis Access - Tunneled Line 07/30/2018 Walt Lin MD [facility] INTERVENTIONL RAD ??? IR DIALYSIS ACCESS - TUNNELED LINE 08/30/2018 IR Dialysis Access - Tunneled Line 08/30/2018 Eriwn Simon, HOSPICE CLINICAL MANAGER [facility] INTERVENTIONL RAD ??? KIDNEY TRANSPLANT KIDNEY TRANSPLANT / RECIPIENT/LT Procedure Date: 11/26/2002 ??? PRO CREAT AV FISTULA, NON-AUTOGENOUS GRAFT Right 12/13/2018 PLACEMENT, AV HEMODIALYSIS GRAFT, SYNTHETIC GRAFT, UPPER EXTREMITY (WRVU 12.03) performed by Mary Garay MD at [facility] MAIN OR ? ? PRO DEBRIDEMENT SUBCUTANEOUS TISSUE 20 SQCM/< Left 02/20/2016 DEBRIDEMENT SKIN AND SUBCU, HEAD/NECK performed by Miguel Angel Moreno MD at [facility] MAIN OR ??? PRO DECOMPRESS FOREARM, BRACH ART EXPLOR Left 04/06/2018 FASCIOTOMY, FOREARM, WITH BRACHIAL ARTERY EXPLORATION (WRVU 8.41) performed by Lida Peter MDat [facility] MAIN OR ??? PRO DIRECT REPAIR RUPTURED ANEURYSM, AXILLO-BRACHIAL ARM INCIS Left 04/06/2018 @REPAIR, RUPTURED AXILLARY OR BRACHIAL ARTERY ANEURYSM BY ARM INCISION (WRVU *) performed by Lida Peter MD at [facility] MAIN OR ??? PRO EXC PAROTD, TOTAL, UNILAT RAD NECK Left 02/05/2016 @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, TOTAL, WITH UNILATERAL RADICAL NECK DISSECTION performed by Miguel Angel Moreno MD at [facility] MAIN OR ??? PRO EXC SKIN MALIG 3.1-4CM FACE, FACIAL Left 02/05/2016 EXC MALIGNANT LESION, 3.1 TO 4.0CM, FACE performed by Miguel Angel Moreno MD at [facility] MAIN OR ? ? PRO EXC SKIN MALIG >4CM TRUNK, ARM, LEG 04/19/2012 EXC MALIGNANT LESION, MICHAEL > 4.0CM, TRUNK performed by SABRINA SANCHEZ at [facility] MAIN OR ??? PRO LAP, RADICAL NEPHRECTOMY Left 05/31/2017 @LAPAROSCOPY, RADICAL NEPHRECTOMY (WRVU 25.06) performed by Jax Mills MD at [facility] OR ??? PRO LIGATN ANGIOACCESS AV FISTULA Left 04/19/2018 LIGATION OR BANDING OF HEMODIALYSIS FISTULA OR GRAFT UPPER EXTREMITY (WRVU 6.25) performed by Odalis Elias MD at [facility] MAIN OR ??? PRO NEGATIVE PRESSURE WOUND THERAPY, LESS THAN OR EQUAL TO 50 SQCM Left 04/19/2018 DRESSING CHANGE (VAC ASSISTED) UP TO 50SQ.CM (WRVU 0.55) performed by Odalis Elias MD [facility] OR ??? PRO REBL VES GRAFT, UP EXTREM Left 04/06/2018 REPAIR BLOOD VESSEL WITH GRAFT OTHER THAN VEIN, UPPER EXTREMITY (WRVU 15.83) performed by Lida Peter MD at [facility] MAIN OR ??? PRO RELIEVE PRESSURE ON NERVE(S) Left 04/06/2018 (MSURG) CARPAL TUNNEL (WRVU 4.82) performed by Silviano Sparks MD at [facility] MAIN OR ??? PRO REPAIR INTERMEDIATE S/A/T/E 2.6-7.5 CM 04/19/2012 REPAIR INTERMEDIATE WOUND, (NO HANDS OR FEET) 2.6 TO 7.5CM, UPPER EXTREMITY performed by SABRINA SANCHEZ at [facility] MAIN OR ? ? PRO REPAIR INTERMEDIATE S/A/T/E > 30.0 CM Left 04/14/2018 REPAIR INTERMEDIATE WOUND, (NO HANDS OR FEET) >30.0CM, UPPER EXTREMITY (WRVU 5) performed by Yimi Easton MD at [facility] MAIN OR ??? PRO REVISE MEDIAN N/CARPAL TUNNEL SURG Left 04/06/2018 MEDIAN NERVE DECOMPRESSION (CARPAL TUNNEL RELEASE) (WRVU 4.97) performed by Lida Peter MD [facility] MAIN OR ? ? PRO SPLIT GRFT TRUNK, ARM, LEG <100SQCM Left 04/26/2018 SPLIT THICK SKIN GRAFT,100 SQ CM OR LESS, ARMS (WRVU 9.9) performed by Silviano Sparks MD at [facility] MAIN OR ? ? PRO SPLIT GRFT, HEAD, FAC, HAND, FEET <100SQCM N/A 02/20/2016 SPLIT THICKNESS SKIN SPLIT GRAFT,100SQ CM OR LESS, NECK performed by Miguel Angel Moreno MD at [facility] MAIN OR ??? PRO SPLIT GRFT, TRUNK, ARM, LEG EA 100SQCM N/A 04/26/2018 EA.ADDITIONAL 100SQ.CM STSG (WRVU 1.72) performed by Silviano Sparks MD at [facility] MAIN OR ??? PRO UPPER GI ENDOSCOPY, BIOPSY N/A 05/13/2017 EGD WITH BIOPSY (WRVU 2.49) performed by Aditya Barrera MD at [facility] ENDOSCOPY ??? PRO VASCULAR SURGERY PROCEDURE UNLIST Left 11/20/2015 LIGATION\REPAIR AV FISTULA performed by Camilo Ireland MD at [facility] MAIN OR ??? PRO VASCULAR SURGERY PROCEDURE UNLIST Left 11/20/2015 EXCISION VEIN FROM HAND performed by Camilo Ireland MD at [facility] MAIN OR ??? US RENAL TRANSPLANT BIOPSY 12/31/2010 ??? US RENAL TRANSPLANT RIGHT Right 06/04/2018 US Renal Transplant Right 06/04/2018 [facility] RAD ULTRASOUND Social history and habits: [...] Pertinent ROS: as per HPI Physical Exam: Cardiovascular: Regular, Normal Pulmonary: Breath sounds clear to auscultation Skin: Engorged tick noted in left lower abdomen, with circumferential erythema in 3-4 inch radius. Removed by RN. The planned procedure (and sedation plan if appropriate), its benefits and risks, and alternatives were discussed with the patient. The patient consented to the procedure. The indications for the procedure are still present. Pre-sedation Assessment: Sedation Plan: no sedation 12/27/2020 PANCHITO Lipscomb documented in this encounter Plan of Treatment Not on file documented as of this encounter Procedures Procedure Name Priority Date/Time Associated Diagnosis Comments IR DIALYSIS ACCESS - TUNNELED LINE STAT 12/27/2020 4:57 PM EDT ESRD (end stage renal disease) documented in this encounter Results * IR Dialysis Access - Tunneled Line (12/27/2020 4:57 PM EDT) Anatomical Region Laterality Modality Abdomen X-Ray Angiograph y Narrative 12/27/2020 5:11 PM EDT IR Procedure Note Procedure: ?? US guided venous access (neck collateral) ? Central jugular/SVC venogram ? Placement of a tunneled hemodialysis catheter History/indication: ?? 60 y.o. male who presents to Interventional Radiology to undergo placement of a dialysis catheter. He underwent creation of right brachioaxillary 4-7 mm graft ??by Vascular Surgery on 12/13/2018. The clinic contacted IR today to report inability to access the patient's graft, with suspicion of possible thrombosis. Patient to present to IR for dialysis catheter placement until assessment of the AVG can be performed. ?? Multiple prior dialysis catheters in setting of nonfunctional [facility] access. ?? Technique: ?? After discussing risks (including infection, hemorrhage, occlusion), and benefits, patient consented to the procedure. 1% lidocaine was used as local anesthesia. Split doses of fentanyl were administered by the IR nurse during continuous monitoring of pulse, blood pressure, end tidal CO2 and oxygen saturation. Maximal sterile barrier technique was employed throughout the case. After sterile preparation of the neck and upper chest, ultrasound was used to localize the right internal jugular vein. ??This vessel was diminutive but compressible and displayed an atrial waveform on spectral Doppler. Under US guidance the vessel was accessed, but the 0-.018 wire did not pass centrally. Venography was performed demonstrating that was not the IJV, but a collateral vessel emptying into a anterior mediastinal vein. Attempts at maneuvering an angled glide wire into the SVC under fluoroscopy were unsuccessful. A more laterally located collateral vein was targeted and accessed with a 21 gauge needle under US guidance. A 0.018 wire was advanced/coiled and a 4 Fr dilator placed. A 0.035 glide wire was then steered under fluoroscopy into the SVC. A 7 Fr dilator was placed. A subcutaneous tunnel was created inferiorly and laterally using blunt dissection. Additional anesthesia was achieved with bupivicaine with epinepherine. A blunt ended tunneling device was then used to bring the dual lumen 14.5 Fr x 28 cm catheter through the tunnel to the venotomy site. ??Venotomy was dilated to accommodate the 15 Fr peel-away sheath. The catheter was inserted via the peel-away sheath ??and the catheter tip positioned at the SVC-RA junction, documented with a digital fluoroscopic image. The skin overlying the venotomy was approximated with 4-0 absorbable suture material. Tissue adhesive was also applied. ??2-0 nylon suture was used to secure the catheter at the exit site. Complications: ?None immediate; ??EBL=10 cc Medications: ??1% lidocaine (<10 cc); fentanyl 250 mcg Contrast: ?? 5 cc non-ionic/omnipaque Fluoroscopy time: ?? 5.1 minutes Findings: 1. What was thought to be a diminutive right IJV on US turned out to be a neck vein collateral vessel emptying into a anterior mediastinal vein. 2. US guided access of a more laterally located collateral vein. This did communicate with the SVC. 3. Placement of a tunneled hemodialysis catheter via a lateral neck collateral vein as detailed above. The catheter is ready for immediate use. Attending: ?Greyson Apple MD ? I was present during the intraservice time as documented by the IR Nurse. Gaby Mesa MD [facility] [place] IR ORDERABLES documented in this encounter Visit Diagnoses Diagnosis ESRD (end stage renal disease) End stage renal disease documented in this encounter Administered Medications Inactive Administered Medications - up to 3 most recent administrations Medication Order MAR Action Action Date Dose Rate Site fentaNYL (pf) (50 mcg/mL) multi-dose injection 25-50 mcg 25-50 mcg, Intravenous, EVERY 3 MIN PRN, Starting on Wed12/27/20 at 1412, Until Wed12/27/20 at 1746, Pain, per unit protocol, - Start dose [...] order., Angio/IR (Day of Procedure), Routine Given 12/27/2020 4:31 PM EDT 50 mcg Given 12/27/2020 4:21 PM EDT 50 mcg Given 12/27/2020 4:08 PM EDT 50 mcg iohexoL (Omnipaque) (350 mg/mL) injection solution 50 mL 50 mL, Other, ONCE PRN, Starting on Wed12/27/20 at 1658, Until Wed12/28/20 at 0434, Per Protocol, Warning Vesicant/Irritant Medication , Routine Given 12/27/2020 4:58 PM EDT 5 mLs lidocaine (Xylocaine) 1% (10 mg/mL) injection 10 mg 10 mg, Subcutaneous, ONCE, 1 dose, On Wed12/27/20 at 1430, For use in Interventional Radiology (IR) only for procedure with direct provider supervision and verbal order., Angio/IR (Day of Procedure), Routine Given 12/27/2020 4:00 PM EDT 10 mg lidocaine-EPINEPHrine (1% - 1:100,000) injection 20 mL 20 mL, Intradermal, ONCE, 1 dose, On Wed12/27/20 at 1430, Warning Vesicant/Irritant Medication For subcutaneous use during IR procedures., Angio/IR (Day of Procedure), Routine Given 12/27/2020 4:00 PM EDT 20 mLs sodium chloride 0.9 % (flush) flush 5 mL 5 mL, Intravenous, 2 TIMES DAILY, First dose on Wed12/27/20 at 1430, Until Discontinued, Angio/IR (Day of Procedure), Routine Given 12/27/2020 3:00 PM EDT 5 mLs documented in this encounter Care Teams Mender Hand Relationship Specialty Start Date End Date Carroll Fuentes DO [address] [place] [address] PCP - General 09/23/11 10/20/22 documented as of this encounter
--- OUTSIDE RECORDS SUMMARY | 2024-04-22 10:53 | XMS_ITS | Encounter Summary ---
Author Organization [facility] Address [facility] [place] [address] Care Team Providers Care Space Technologist Name Role Phone AlfredoCarroll geiger Primary Care Provider [phone] Reason for Visit * Auth/Cert Specialty Diagnoses / Procedures Referred By Shashi ko Referred To Contact Diagnoses ESRD (end stage renal disease) ESRD Procedures PRO CREAT AV FISTULA, NON-AUTOGENOUS GRAFT PLACEMENT, AV HEMODIALYSIS GRAFT, SYNTHETIC GRAFT, UPPER EXTREMITY (WRVU 12.03) Referral ID Status Reason Start Date Expiration Date Visits Re quested Visits Authorized [id number] 1 1 Encounter Details Date Type Department Care Team (Latest Contact Info) Description 04/03/2021 6:21 AM EDT - 04/04/2021 3:25 PM EDT Hospital Encounter [place] [id number] Odalis Tong MD [facility] [place] [address] ESRD (end stage renal disease); Pre-op testing; CKD (chronic kidney disease) stage 4, GFR 15-29 ml/min Discharge Disposition: Home Social History Tobacco [...] Sign Reading Time Taken Comments Blood Pressure 115/57 04/04/2021 12:36 PM EDT Pulse 63 04/04/2021 12:36 PM EDT Temperature 36.3 ??C (97.3 ??F) 04/04/2021 12:36 PM E DT Respiratory Rate 18 04/04/2021 12:36 PM EDT Oxygen Saturation 97% 04/04/2021 8:21 AM EDT Inhaled Oxygen Concentration - - Weight 86.4 kg (190 lb 6.4 oz) 04/04/2021 6:00 A M EDT Height 177.8 cm (5' 10) 04/03/2021 [...] GFR 15-29 ml/min ??? 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 H/O [...] function and is medically cleared back to [facility] rehab, where pt resides. He will [...] K 5.0 Discharge Condition: Good Discharge to: [facility] (Resident) Future Appointments and Orders Future Appointments and Orders Future Appointments Provider Department Dept Phone 05/02/2021 10:00 AM Nicolás Marte Vascular Lab at [facility] Arrive at: [place] 05/02/2021 11:45 AM Odalis Tong MD Vascular Surgery at [facility] Arrive at: [place] Future Orders Complete By Expires AVF/Established Access Evaluation [VAS61 Custom] 05/04/2021 04/04/2022 Process Instructions: There is no in-house vascular lab engineer available on weeknights (5pm-8am), weekends, or holidays. IF THIS IS A REQUEST FOR AN EMERGENT STUDY DURING THOSE HOURS, please have the senior provider responsible for the patient page the Vascular Surgery Fellow/Senior Resident radioisotope production operator to discuss options. Scheduling Instructions: Questions: Laterality: Left Which extremity?: Upper Indication for study/signs & symptoms: LUE AV graft placement Question to be answered: patency, flow Preferred location?: [facility] Clinics Anticoagulation & Antiplatelet: Anticoagulation: None indicated [...] For any problems or questions please call [phone] YEIMY Fallon, larder cook Nurse Clinician For issues on weeknights after 5pm and weekends please call [phone] and ask for the Vascular Fellow radioisotope production operator. Nilda Minaya APRN Department of Vascular Surgery [...] For any problems or questions please call [phone] YEIMY Fallon, larder cook Nurse Clinician For issues on weeknights after 5pm and weekends please call [phone] and ask for the Vascular Fellow radioisotope production operator. documented in this encounter Medications at Time [...] Kohler RN - 04/04/2021 3:[address] [facility] Short Stay Unit Discharge Note All [...] Villareal RN - 04/04/2021 7:[address] [facility] Short Stay Unit Shift Note The [...] 62 16 108/62 97 % -- RA 04/03/219 -- 71 bpm -- -- 108/62 96 [...] to L incision site, PRN medications per SEP. Denies nausea. Tolerating sips of water. AOx3, slow with responses, poor historian. MAEx4. 1515 - attempted to give report to [facility]. documented in this encounter H&P Notes * Tristin Marrero MD - 04/03/2021 7:13 AM EDT Vascular Surgery History and Physical HPI: Adamamaty Ram is a 60 y.o. male with [...] AV Fistula Evaluations 11/30/[address] [facility] INTERVENTIONL RAD ??? IR DIALYSIS ACCESS - AV FISTULA EVALUATIONS 01/07/2021 IR Dialysis Access - AV Fistula Evaluations 01/07/[address] [facility] INTERVENTIONL RAD ??? IR DIALYSIS ACCESS - TUNNELED LINE 07/30/2018 IR Dialysis Access - Tunneled Line 07/30/[address] [facility] INTERVENTIONL RAD ??? IR DIALYSIS ACCESS - TUNNELED LINE 08/30/2018 IR Dialysis Access - Tunneled Line 08/30/2018 Erwin Simon, ADJUSTER AND INSPECTOR [facility] INTERVENTIONL RAD ??? IR DIALYSIS ACCESS - TUNNELED LINE 12/27/2020 IR Dialysis Access - Tunneled Line 12/27/[address] [facility] INTERVENTIONL RAD ??? IR DIALYSIS ACCESS - TUNNELED LINE 01/23/2021 IR Dialysis Access - Tunneled Line 01/23/[address] [facility] INTERVENTIONL RAD ??? IR DIALYSIS ACCESS - TUNNELED LINE 03/20/2021 IR Dialysis Access - Tunneled Line 03/20/[address] [facility] INTERVENTIONL RAD ??? KIDNEY TRANSPLANT KIDNEY TRANSPLANT / RECIPIENT/LT Procedure Date: 11/26/2002 ??? PRO CREAT AV FISTULA, NON-AUTOGENOUS GRAFT Right 12/13/2018 PLACEMENT, AV HEMODIALYSIS GRAFT, SYNTHETIC GRAFT, UPPER EXTREMITY (WRVU 12.03) performed by Mary Garay MD at [facility] MAIN OR ? ? PRO DEBRIDEMENT SUBCUTANEOUS TISSUE 20 SQCM/< Left 02/20/2016 DEBRIDEMENT SKIN AND SUBCU, HEAD/NECK performed by Miguel Angel Moreno MD at [facility] MAIN OR ??? PRO DECOMPRESS FOREARM, BRACH ART EXPLOR Left 04/06/2018 FASCIOTOMY, FOREARM, WITH BRACHIAL ARTERY EXPLORATION (WRVU 8.41) performed by Lida Peter MDat [facility] MAIN OR ??? PRO DIRECT REPAIR RUPTURED ANEURYSM, AXILLO-BRACHIAL ARM INCIS Left 04/06/2018 @REPAIR, RUPTURED AXILLARY OR BRACHIAL ARTERY ANEURYSM BY ARM INCISION (WRVU *) performed by Lida Peter MD at [facility] MAIN OR ??? PRO EXC PAROTD, TOTAL, UNILAT RAD NECK Left 02/05/2016 @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, TOTAL, WITH UNILATERAL RADICAL NECK DISSECTION performed by Miguel Angel Moreno MD at [facility] MAIN OR ??? PRO EXC SKIN MALIG 3.1-4CM FACE, FACIAL Left 02/05/2016 EXC MALIGNANT LESION, 3.1 TO 4.0CM, FACE performed by Miguel Angel Moreno MD at [facility] MAIN OR ? ? PRO EXC SKIN MALIG >4CM TRUNK, ARM, LEG 04/19/2012 EXC MALIGNANT LESION, MICHAEL > 4.0CM, TRUNK performed by SABRINA SANCHEZ at [facility] OR ??? PRO LAP, RADICAL NEPHRECTOMY Left 05/31/2017 @LAPAROSCOPY, RADICAL NEPHRECTOMY (WRVU 25.06) performed by Jax Mills MD at [facility] OR ??? PRO LIGATN ANGIOACCESS AV FISTULA Left 04/19/2018 LIGATION OR BANDING OF HEMODIALYSIS FISTULA OR GRAFT UPPER EXTREMITY (WRVU 6.25) performed by Odalis Tong MD at [facility] MAIN OR ??? PRO NEGATIVE PRESSURE WOUND THERAPY, LESS THAN OR EQUAL TO 50 SQCM Left 04/19/2018 DRESSING CHANGE (VAC ASSISTED) UP TO 50SQ.CM (WRVU 0.55) performed by Odalis Tong MD [facility] OR ??? PRO REBL VES GRAFT, UP EXTREM Left 04/06/2018 REPAIR BLOOD VESSEL WITH GRAFT OTHER THAN VEIN, UPPER EXTREMITY (WRVU 15.83) performed by Lida Peter MD at [facility] MAIN OR ??? PRO RELIEVE PRESSURE ON NERVE(S) Left 04/06/2018 (MSURG) CARPAL TUNNEL (WRVU 4.82) performed by Silviano Sparks MD at [facility] MAIN OR ??? PRO REPAIR INTERMEDIATE S/A/T/E 2.6-7.5 CM 04/19/2012 REPAIR INTERMEDIATE WOUND, (NO HANDS OR FEET) 2.6 TO 7.5CM, UPPER EXTREMITY performed by SABRINA SANCHEZ at [facility] MAIN OR ? ? PRO REPAIR INTERMEDIATE S/A/T/E > 30.0 CM Left 04/14/2018 REPAIR INTERMEDIATE WOUND, (NO HANDS OR FEET) >30.0CM, UPPER EXTREMITY (WRVU 5) performed by Yimi Easton MD at [facility] MAIN OR ??? PRO REVISE MEDIAN N/CARPAL TUNNEL SURG Left 04/06/2018 MEDIAN NERVE DECOMPRESSION (CARPAL TUNNEL RELEASE) (WRVU 4.97) performed by Lida Peter MD [facility] OR ? ? PRO SPLIT GRFT TRUNK, ARM, LEG <100SQCM Left 04/26/2018 SPLIT THICK SKIN GRAFT,100 SQ CM OR LESS, ARMS (WRVU 9.9) performed by Silviano Sparks MD at [facility] MAIN OR ? ? PRO SPLIT GRFT, HEAD, FAC, HAND, FEET <100SQCM N/A 02/20/2016 SPLIT THICKNESS SKIN SPLIT GRAFT,100SQ CM OR LESS, NECK performed by Miguel Angel Moreno MD at [facility] MAIN OR ??? PRO SPLIT GRFT, TRUNK, ARM, LEG EA 100SQCM N/A 04/26/2018 EA.ADDITIONAL 100SQ.CM STSG (WRVU 1.72) performed by Silviano Sparks MD at [facility] MAIN OR ??? PRO UPPER GI ENDOSCOPY, BIOPSY N/A 05/13/2017 EGD WITH BIOPSY (WRVU 2.49) performed by Aditya Barrera MD at [facility] ENDOSCOPY ??? PRO VASCULAR SURGERY PROCEDURE UNLIST Left 11/20/2015 LIGATION\REPAIR AV FISTULA performed by Camilo Ireland MD at [facility] MAIN OR ??? PRO VASCULAR SURGERY PROCEDURE UNLIST Left 11/20/2015 EXCISION VEIN FROM HAND performed by Camilo Ireland MD at [facility] MAIN OR ??? US RENAL TRANSPLANT BIOPSY 12/31/2010 ??? US RENAL TRANSPLANT RIGHT Right 06/04/2018 US Renal Transplant Right 06/04/2018 [facility] RAD ULTRASOUND Family Hx: Negative for [...] Studies/Imaging: None new Assessment and Plan: Adama Ginna Ram is a 60 y.o. male who presents today for LUE AVG placement. Risks, benefits, and alternatives were discussed and patient elects to proceed. Angelina Devries Marrero Vascular Surgery Pager #[phone] documented in this encounter Miscellaneous Notes * Consult Note - Crystal Mcdermott MD - 04/04/2021 11:32 AM EDT NEPHROLOGY CONSULT NOTE Reason for consult: ESRD/HD HPI: 60yo man s/p creation of LUE AVG. Patient seen and examined on dialysis. Clinical and laboratory data reviewed. Stable treatment. No issues with dialysis or access. 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 They could not accommodate him at a [...] AV Fistula Evaluations 11/30/[address] [facility] INTERVENTIONL RAD ??? IR DIALYSIS ACCESS - AV FISTULA EVALUATIONS 01/07/2021 IR Dialysis Access - AV Fistula Evaluations 01/07/[address] [facility] INTERVENTIONL RAD ??? IR DIALYSIS ACCESS - TUNNELED LINE 07/30/2018 IR Dialysis Access - Tunneled Line 07/30/[address] [facility] INTERVENTIONL RAD ??? IR DIALYSIS ACCESS - TUNNELED LINE 08/30/2018 IR Dialysis Access - Tunneled Line 08/30/2018 Erwin Simon, CATRACHITO [facility] INTERVENTIONL RAD ??? IR DIALYSIS ACCESS - TUNNELED LINE 12/27/2020 IR Dialysis Access - Tunneled Line 12/27/[address] [facility] INTERVENTIONL RAD ??? IR DIALYSIS ACCESS - TUNNELED LINE 01/23/2021 IR Dialysis Access - Tunneled Line 01/23/[address] [facility] INTERVENTIONL RAD ??? IR DIALYSIS ACCESS - TUNNELED LINE 03/20/2021 IR Dialysis Access - Tunneled Line 03/20/[address] [facility] INTERVENTIONL RAD ??? KIDNEY TRANSPLANT KIDNEY TRANSPLANT / RECIPIENT/LT Procedure Date: 11/26/2002 ??? PRO CREAT AV FISTULA, NON-AUTOGENOUS GRAFT Right 12/13/2018 PLACEMENT, AV HEMODIALYSIS GRAFT, SYNTHETIC GRAFT, UPPER EXTREMITY (WRVU 12.03) performed by Mary Garay MD at [facility] MAIN OR ??? PRO CREAT AV FISTULA, NON-AUTOGENOUS GRAFT Left 04/03/2021 PLACEMENT, AV HEMODIALYSIS GRAFT, SYNTHETIC GRAFT, UPPER EXTREMITY (WRVU 12.03) performed by Odalis Tong MD at [facility] MAIN OR ? ? PRO DEBRIDEMENT SUBCUTANEOUS TISSUE 20 SQCM/< Left 02/20/2016 DEBRIDEMENT SKIN AND SUBCU, HEAD/NECK performed by Miguel Angel Moreno MD at [facility] MAIN OR ??? PRO DECOMPRESS FOREARM, BRACH ART EXPLOR Left 04/06/2018 FASCIOTOMY, FOREARM, WITH BRACHIAL ARTERY EXPLORATION (WRVU 8.41) performed by Lida Peter MDat [facility] MAIN OR ??? PRO DIRECT REPAIR RUPTURED ANEURYSM, AXILLO-BRACHIAL ARM INCIS Left 04/06/2018 @REPAIR, RUPTURED AXILLARY OR BRACHIAL ARTERY ANEURYSM BY ARM INCISION (WRVU *) performed by Lida Peter MD at [facility] MAIN OR ??? PRO EXC PAROTD, TOTAL, UNILAT RAD NECK Left 02/05/2016 @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, TOTAL, WITH UNILATERAL RADICAL NECK DISSECTION performed by Miguel Angel Moreno MD at [facility] OR ??? PRO EXC SKIN MALIG 3.1-4CM FACE, FACIAL Left 02/05/2016 EXC MALIGNANT LESION, 3.1 TO 4.0CM, FACE performed by Miguel Angel Moreno MD at [facility] OR ? ? PRO EXC SKIN MALIG >4CM TRUNK, ARM, LEG 04/19/2012 EXC MALIGNANT LESION, MICHAEL > 4.0CM, TRUNK performed by SABRINA SANCHEZ at [facility] MAIN OR ??? PRO LAP, RADICAL NEPHRECTOMY Left 05/31/2017 @LAPAROSCOPY, RADICAL NEPHRECTOMY (WRVU 25.06) performed by Jax Mills MD at [facility] MAIN OR ??? PRO LIGATN ANGIOACCESS AV FISTULA Left 04/19/2018 LIGATION OR BANDING OF HEMODIALYSIS FISTULA OR GRAFT UPPER EXTREMITY (WRVU 6.25) performed by Odalis oTng MD at [facility] MAIN OR ??? PRO NEGATIVE PRESSURE WOUND THERAPY, LESS THAN OR EQUAL TO 50 SQCM Left 04/19/2018 DRESSING CHANGE (VAC ASSISTED) UP TO 50SQ.CM (WRVU 0.55) performed by Odalis Tong MD [facility] OR ??? PRO REBL VES GRAFT, UP EXTREM Left 04/06/2018 REPAIR BLOOD VESSEL WITH GRAFT OTHER THAN VEIN, UPPER EXTREMITY (WRVU 15.83) performed by Lida Peter MD at [facility] MAIN OR ??? PRO RELIEVE PRESSURE ON NERVE(S) Left 04/06/2018 (MSURG) CARPAL TUNNEL (WRVU 4.82) performed by Silviano Sparks MD at [facility] OR ??? PRO REPAIR INTERMEDIATE S/A/T/E 2.6-7.5 CM 04/19/2012 REPAIR INTERMEDIATE WOUND, (NO HANDS OR FEET) 2.6 TO 7.5CM, UPPER EXTREMITY performed by SABRINA SANCHEZ at [facility] OR ? ? PRO REPAIR INTERMEDIATE S/A/T/E > 30.0 CM Left 04/14/2018 REPAIR INTERMEDIATE WOUND, (NO HANDS OR FEET) >30.0CM, UPPER EXTREMITY (WRVU 5) performed by Yimi Easton MD at [facility] MAIN OR ??? PRO REVISE MEDIAN N/CARPAL TUNNEL SURG Left 04/06/2018 MEDIAN NERVE DECOMPRESSION (CARPAL TUNNEL RELEASE) (WRVU 4.97) performed by Lida Peter MD [facility] MAIN OR ? ? PRO SPLIT GRFT TRUNK, ARM, LEG <100SQCM Left 04/26/2018 SPLIT THICK SKIN GRAFT,100 SQ CM OR LESS, ARMS (WRVU 9.9) performed by Silviano Sparks MD at [facility] MAIN OR ? ? PRO SPLIT GRFT, HEAD, FAC, HAND, FEET <100SQCM N/A 02/20/2016 SPLIT THICKNESS SKIN SPLIT GRAFT,100SQ CM OR LESS, NECK performed by Miguel Angel Moreno MD at [facility] MAIN OR ??? PRO SPLIT GRFT, TRUNK, ARM, LEG EA 100SQCM N/A 04/26/2018 EA.ADDITIONAL 100SQ.CM STSG (WRVU 1.72) performed by Silviano Sparks MD at [facility] MAIN OR ??? PRO UPPER GI ENDOSCOPY, BIOPSY N/A 05/13/2017 EGD WITH BIOPSY (WRVU 2.49) performed by Aditya Barrera MD at [facility] ENDOSCOPY ??? PRO VASCULAR SURGERY PROCEDURE UNLIST Left 11/20/2015 LIGATION\REPAIR AV FISTULA performed by Camilo Ireland MD at [facility] MAIN OR ??? PRO VASCULAR SURGERY PROCEDURE UNLIST Left 11/20/2015 EXCISION VEIN FROM HAND performed by Camilo Ireland MD at [facility] MAIN OR ??? US RENAL TRANSPLANT BIOPSY 12/31/2010 ??? US RENAL TRANSPLANT RIGHT Right 06/04/2018 US Renal Transplant Right 06/04/2018 [facility] RAD ULTRASOUND Current Facility-Administered Medications Medication [...] 1,000 mg 1,000 mg Oral TID Tristin Marrero MD ??? carvediloL (Coreg) tablet 12.5 mg [...] Not on file Occupational History ??? 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 Smoking status: Former Smoker [...] after dialysis. Crystal Mcdermott MD Nephrology Pager: [phone] * Op Note - Tristin Marrero MD - 04/03/2021 2:16 PM EDT [facility] Operative Note Patient Name: Adama Ram : [id number] MR#: [id number] Case Date: 04/03/2021 Surgeon: Surgeon(s) and Role: [...] itsbranches were controlled with vessel loops. A tanacross blade scalpel was used to create a [...] the graft was cut to size. A tanacross blade scalpel was used to create a [...] Implant Name Type Inv. Item Serial No. Superintendent Marine Lot No. LRB No. Used Action GRAFT VASCULAR [id number] STRAIGHT HEPARIN COATED STANDARD ([id number]) - [id number] IMPLANTS GRAFT VASCULAR [id number] STRAIGHT HEPARIN COATED STANDARD ([id number]) [id number] [employer] - ANUJ MAJANOE AN Left 1 Implanted Associated attestation - Odalis Tong MD - 04/04/2021 7:45 AM EDT Attestation: Case Date: 04/03/2021 I was present and scrubbed for the entire procedure. ODALIS TONG MD 04/04/2021 * Brief Op Note - Tristin Marrero MD - 04/03/2021 11:57 AM EDT Brief Operative Note Patient Name: Adama Ram : [id number] MR#: [id number] Case Date: 04/03/2021 Surgeon: Surgeon(s) and Role: [...] Implant Name Type Inv. Item Serial No. Superintendent Marine Lot No. LRB No. Used Action GRAFT VASCULAR [id number] STRAIGHT HEPARIN COATED STANDARD ([id number]) - [id number] IMPLANTS GRAFT VASCULAR [id number] STRAIGHT HEPARIN COATED STANDARD ([id number]) [id number] [employer] - ANUJ GARCIA AN Left 1 Implanted documented in this encounter Plan of Treatment Not on file documented as of this encounter Procedures Procedure Name Priority Date/Time Associated Diagnosis Comments HC HEPATITIS B SURFACE AG Routine 04/03/2021 5:38 PM EDT RAPID COVID-19 PCR ([facility]/APD/[facility]) Routine 04/03/2021 9:39 AM EDT Creat Av Fistula, Non-Autogenous Graft ([id number]) 04/03/2021 7:55 AM EDT ESRD HC VENIPUNCTURE STAT 04/03/2021 6:55 AM EDT ESRD (end stage renal disease) Pre-op testing PLACEMENT, AV HEMODIALYSIS GRAFT, SYNTHETIC GRAFT Routine 04/03/2021 6:35 AM EDT documented in this encounter Results * Hepatitis B Surface Antigen (04/03/2021 5:38 PM EDT) Hepatitis B Surface Antigen Negative Negative [facility] Blood 04/03/2021 5:38 PM EDT 04/03/2021 6:42 PM EDT Narrative Resulting Agency Comment Spec In Lab Crystal Mcdermott MD CHEMISTRY ORDERABLE S [facility] [place] [address] * COVID-19 PCR (04/03/2021 9:39 AM EDT) SARS-CoV-2 RNA (Rapid) Not Detected Not Detected [facility] Comment: This result should be [...] using the Simplexa COVID-19 Direct Assay by Reelio as authorized by the FDA issued Emergency [...] Department of Pathology and Laboratory Medicine at [facility], certified under the Clinical Laboratory Improvement [...] fact sheets at the following FDA website: https://www.fda.gov/medical-devices/lzjjjiyimyp-pqhgzyf-7594-euwif-77-fiycfbprc- use-a qtdugxoogequr-yvhgrzc-wntgdpz/wwbds-lrmtaxtjmtw-pdsl SARS-CoV-2 Source CUSTOMER EXPERIENCE RETAIL CLERK Swab [facility] Nasopharyngeal Swab 04/03/20 9:39 AM EDT 04/03/2021 9:50 AM EDT Comment:Symptoms->Surveillan ce Narrative Resulting Agency Comment Spec In Lab Odalis Tong MD MICROBIOLOGY - GENERAL ORDERABLES Performing Organization Address City/[facility]/ZIP Co de Phone Number [facility] [place] [address] * Potassium (04/03/2021 6:55 AM EDT) Potassium 5.0 3.5 - 5.0 mmol/L [facility] Comment: Please note: ??Patients with [...] MD CHEMISTRY ORDER KELLY Performing Organization Address [facility] Co de Phone Number [facility] [place] [address] documented in this encounter Visit Diagnoses Diagnosis ESRD (end stage renal disease) End stage renal disease Pre-op testing Preoperative examination, unspecified CKD (chronic kidney disease) stage 4, GFR 15-29 ml/min Chronic kidney disease, Stage IV (severe) ESRD (end stage renal disease) End stage [...] 8 HOURS, 3 doses, First dose on Wed04/03/21 at 1600, Last dose on Wed04/04/21 at [...] PM EDT 1 g 100 mL/ hr heparin (porcine) (1,000 [...] Routine Given 04/04/2021 12:31 PM EDT 4,000 U nits heparin (porcine) (1,000 units/mL) injection 6,000 Units 6,000 Units, Intravenous, ONCE IN DIALYSIS, 1 dose, On Wed04/04/21 at 0800, For use in Dialysis only., Dialysis (Intra-Procedure), Routine Given 04/04/2021 8:34 AM EDT 6,000 Un its levETIRAcetam (Keppra) tablet 500 mg 500 mg, [...] OPEN Given 04/03/2021 10:08 PM EDT 20 m g senna-docusate (Pericolace) 8.6-50 mg per tablet 2 tablet 2 tablet, Oral, 2 TIMES DAILY, First dose on Wed04/03/21 at 2115, Until Discontinued, Routine Given 04/03/2021 10:08 PM EDT 2 tablets sodium chloride 0.9 % (flush) (BD PosiFlush Normal Saline 0.9) flush 5 mL 5 mL, Intravenous, 2 TIMES DAILY, First dose on Wed04/03/21 at 2115, Until Discontinued, Routine Given 04/03/2021 10:08 PM EDT 5 mLs tacrolimus (Prograf) capsule 1 mg 1 mg, Oral, 2 TIMES DAILY, First dose on Wed04/03/21 at 2115, Until Discontinued, DO NOT SPLIT, CRUSH OR OPEN, Routine Given 04/04/2021 12:31 AM EDT 1 mg documented in this encounter Active [...] premix bags) infusion (COMPLETED) 2 g, Intravenous, FISHER POT TO O.R., 1 dose, On Mariza 04/03/21 [...] 8 HOURS, 3 doses, First dose on Wed04/03/21 at 1600, Last dose on Wed04/04/21 at [...] Bag (1 of 2) - Provider: Naz Rodríguez RN)1621 (Next Bag (2 of 2) - [...] Discontinued, DO NOT CRUSH OR OPEN, Routine 0900 (Due) heparin (porcine) (1,000 units/mL) injection 6,000 Units (COMPLETED) 6,000 Units, Intravenous, ONCE IN DIALYSIS, 1 dose, On Wed04/04/21 at 0800, For use in Dialysis only., Dialysis (Intra-Procedure), Routine 08 (Given - Provid er: Vee Mcfarland RN) hydrALAZINE (Apresoline) tablet 100 mg 100 mg, Oral, 3 TIMES DAILY, First dose on Wed04/03/21 at 2115, Until Discontinued, Routine 003 (Not Given - Provider: Jaycob Villareal RN - Reason: Contraindicated)0900 (Due)1500 (Due) levETIRAcetam (Keppra) tablet 500 mg 500 mg, Oral, 2 TIMES DAILY, First dose on Wed04/03/21 at 2115, Until Discontinued, Routine 30 (Given - Provid er: Jaycob Villareal RN)0900 (Due) levothyroxine (Synthroid) tablet 100 mcg 100 mcg, Oral, DAILY, First dose on Wed04/04/21 at 0900, Until Discontinued, Routine 899 (Due) losartan (Cozaar) tablet 100 mg 100 mg, Oral, EVERY MORNING, First dose on Wed04/04/21 at 0700, Until Discontinued, Routine 610 (Given - Provid er: Jaycob Villareal RN) pantoprazole EC (Protonix) tablet 20 mg 20 mg, Oral, 2 TIMES DAILY, First dose on Wed04/03/21 at 2115, Until Discontinued, DO NOT CRUSH OR OPEN 2207 (Given - Provider: Jaycob Villareal RN) 899 (Due) polyethylene glycoL (Miralax) packet 17 g 17 g, Oral, DAILY, First dose on Wed04/04/21 at 0900, Until Discontinued, Routine 899 (Due) senna-docusate (Pericolace) 8.6-50 mg per tablet 2 tablet 2 tablet, Oral, 2 TIMES DAILY, First dose on Wed04/03/21 at 2115, Until Discontinued, Routine 2207 (Given - Provider: Jaycob Villareal RN) 0900 (Due) sodium chloride 0.9 % (flush) (BD PosiFlush Normal Saline 0.9) flush 5 mL 5 mL, Intravenous, 2 TIMES DAILY, First dose on Wed04/03/21 at 2115, Until Discontinued, Routine 2208 (Given - Provider: Jaycob Villareal RN) 0900 [...] Subcutaneous, ONCE PRN, 1 dose, Starting on Wed04/03/21 at 2020, Until Wed04/04/21 at 1730, for [...] Starting on Mariza 04/03/21 at 2020, Until 04/04/21 at 1730, Nausea, Start with 4mg and if ineffective in 30 minutes, give an additional 4mg If multiple antiemetics are ordered, give ondansetron first. documented in this encounter Care Teams Space Technologist Relationship Specialty Start Date End Date Carroll Fuentes DO [address] [place] [address] [place] [address] PCP - General 09/23/11 10/20/22 documented as of this encounter
--- OUTSIDE RECORDS SUMMARY | 2024-04-22 10:53 | XMS_ITS | Encounter Summary ---
Author Organization [facility] [place] [address] Care Team Providers Care Executive Officer Name Role Phone AlfredoCarroll allison Primary Care Provider [phone] Encounter Details Date Type Department Care Team (Late st Contact Info) Description 05/02/2021 2:30 PM EDT Tech [place] [id number] Real Swan, RVT ESRD (end stage renal disease); Pre-op testing [...] Name Priority Date/Time Associated Diagnosis Comments PRG DUPLEX SCAN ARTL INFLOW & KEVIN OUTFLOW HEMO COMPL BI STUDY Routine 05/02/2021 2:30 PM EDT ESRD (end stage renal disease) Pre-op testing documented in this encounter Results * First Time Hemodialysis access (05/02/2021 2:30 PM EDT) VB Text Report Department: Vascular Surgery Lab Patient: [id number] (ARNOL, CHRISTY) CPT: 41092 ICD10: Z01.818;N18.6;Z 01.818 Referring Physician: ARIES TONG ?? Phone: Indications: ??preop planning for LE AVF/AVG ICD10 Diagnosis Code: Z01.818, N18.6, Z01.818 Findings: Brachial Artery, Right ? Pressure (mmHg): 137 ? BRIDGETT: 1.00 Common Femoral Vein, Right ? Diam AP: 1.3 ? Thrombus: NONE Femoral Vein, Right ? Diam AP: 0.8 ? Thrombus: NONE Dorsalis Pedis (Ankle) Artery, Right ? Pressure (mmHg): 191 ? BRIDGETT: 1.39 ? Waveform: Triphasic Posterior Tibial (Ankle) Artery, Right ? Pressure (mmHg): 193 ? BRIDGETT: 1.41 ? Waveform: Triphasic Brachial Artery, Left ? Pressure (mmHg): 124 ? BRIDGETT: 0.91 Common Femoral Vein, Left ? Diam AP: 0.9 ? Thrombus: NONE Femoral Vein, Left ? Diam AP: 0.6 ? Thrombus: NONE Dorsalis Pedis (Ankle) Artery, Left ? Pressure (mmHg): 201 ? BRIDGETT: 1.47 ? Waveform: Triphasic Posterior Tibial (Ankle) Artery, Left ? Pressure (mmHg): 206 ? BRIDGETT: 1.50 ? Waveform: Triphasic Interpretation: RIGHT: Normal ankle/brachial Doppler waveforms and toe pressures identified at rest. No evidence of thrombus in the common femoral vein or DUAL femoral veins proximal to mid thigh. Common femoral and superficial femoral arteries are patent and without stenosis. Arterial paul appear normal. LEFT: Normal ankle/brachial Doppler waveforms and toe pressures identified at rest. No evidence of thrombus in the common femoral vein or DUAL femoral veins proximal to mid thigh. Common femoral and superficial femoral arteries are patent and without stenosis. Arterial paul appear normal. Comment: The ankle pressures are falsely elevated, likely due to calcification. Therefore, disease severity is based on Doppler waveforms and toe pressures. Comparison: ??No previous study in our vascular lab database for comparison. Electronically Signed by: ARIES TONG on 2021-05-05 03:07:53 PM [facility] VB Text Report End of Report [facility] 05/02/2021 2:30 PM EDT Aries Tong MD [facility] documented in this encounter Visit Diagnoses Diagnosis ESRD (end stage renal disease) End stage renal disease Pre-op testing Preoperative examination, unspecified documented in this encounter Care Teams Executive Officer Relationship Specialty Start Date End Date Carroll Fuentes DO [address] [place] [address] PCP - General 09/23/11 10/20/22 documented as of this encounter
--- OUTSIDE RECORDS SUMMARY | 2024-04-22 10:53 | XMS_ITS | Encounter Summary ---
Author Organization [facility] [place] [address] Care Team Providers Care Director Corporate Security Name Role Phone Alfredo, Carroll MIX Primary Care Provider [phone] Reason for Referral * Diagnostic Test (Routine) - Closed Specialty Diagnoses / Procedures Referred By Shashi ko Referred To Contact Diagnoses ESRD (end stage renal disease) on dialysis Procedures AVF/Established Access Evaluation Crystal Ochoa APRN [facility] [place] [place] [address] [facility] Vascular Lab [address] [place] [phone] Referral ID Status Reason Start Date Expiration Date V isits Requested Visits Authorized [id number] Closed Specialty Service Requested 05/23/2021 05/23/2022 1 1 Reason for Visit * Auth/Cert Specialty Diagnoses [...] Expiration Date Visits Re quested Visits Authorized [id number] 1 1 Encounter Details Date Type Department Care Team (Latest Contact Info) Description 05/22/2021 6:16 AM EST - 05/23/2021 2:00 PM EST Hospital Encounter [address] [place] [address] Odalis Tong MD [facility] [place] [address] ESRD (end stage renal disease); Pre-op testing; ESRD (end stage renal disease) on dialysis Discharge Disposition: Home Social History Tobacco Use [...] Sign Reading Time Taken Comments Blood Pressure 105/66 05/23/2021 1:18 PM EST Pulse 66 05/22/2021 4:00 PM EST Temperature 37 ??C (98.6 ??F) 05/23/2021 1:1 8 PM EST Respiratory Rate 18 05/23/2021 12:3 2 PM EST Oxygen Saturation 97% 05/23/2021 1:1 8 PM EST Inhaled Oxygen Concentration - - Weight 84.6 kg (186 lb 8.2 oz) 05/23/20 4:29 AM EST RN notified Height 177.8 cm (5' 10) 05/22/2021 10: 41 AM EST Body Mass Index 26.76 05/22/2021 [...] GFR 15-29 ml/min ??? 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 snf current use of immunosuppressive drug ??? H/O [...] R IJ TDC. He takes a daily ASA ?? Last [...] Discharge Condition: Good Discharge to: Care Facility: [facility] Future Appointments and Orders Future Appointments and Orders Future Appointments Provider Department Dept Phone 06/06/2021 1:30 PM Nicolás Marte Vascular Lab at [facility] Arrive at: [employer] 3V [phone] 06/06/2021 2:00 PM Nilda Minaya APRN Vascular Surgery at [facility] Arrive at: [employer] [facility] 3V [phone] Future Orders Complete By Expires AVF/Established Access Evaluation [VAS61 Custom] 06/22/2021 12/22/2021 Process Instructions: There is no in-house vascular laborer tanbark available on weeknights (5pm-8am), weekends, or holidays. IF THIS IS A REQUEST FOR AN EMERGENT STUDY DURING THOSE HOURS, please have the senior provider responsible for the patient page the Vascular Surgery Fellow/Senior Resident presentation manager to discuss options. Scheduling Instructions: Questions: Laterality: Right Which extremity?: Lower Indication for study/signs & symptoms: s/p loop AVG Question to be answered: flow? stenosis? 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 documented in this encounter Discharge Instructions * [...] For any problems or questions please call [phone] For issues on weeknights after 5pm and weekends please call [phone] and ask for the Vascular Fellow presentation manager. documented in this encounter Medications at Time [...] Jr gave report to SAVANNA Salinas from [facility]. Discharge summary and medication record printed and included in manila envelope accompanying patient. IVs removed. Belongings gathered. Pt has no concerns at this time. Pt escorted in wheelchair to main entrance by staff, will be met by [employer] package car driver. * Ortega Girard MD - 05/23/2021 9:47 [...] continue to monitor. Call daniels in reach. * Peter Ye RN - 05/23/2021 4:28 AM EST Notified MD regarding bp @0430 * Janki Pittman MD - 05/22/2021 9:09 PM EST Post-Operative Check Christy Ambrose is a 60 y.o. male [...] PCR Not Detected Not Detected SARS-CoV-2 Source SOFTWARE SALES EXECUTIVE Swab POCT Glucose Result Value Ref Range [...] Bedrest maintained. Hemodialysis initiated at bedside by precise winder. Minimal pain currently. Pt oriented to room, call daniels within reach, [facility]. * Angely Martinez, RN - 05/22/2021 11:34 AM EST Confirmed with staff at [facility], pt's last HD was yesterday. He [...] 2019 which failed. He currently undergoes HD viaa R IJ TDC. He takes a daily ASA Last HD [...] ml/min N18.4 ??? 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 [...] AV Fistula Evaluations 11/30/2019 Sabrina Velez MD [facility] INTERVENTIONL RAD ??? IR DIALYSIS ACCESS - AV FISTULA EVALUATIONS 01/07/2021 IR Dialysis Access - AV Fistula Evaluations 01/07/2021 Sabrina Velez MD [facility] INTER[facility] RAD ??? IR DIALYSIS ACCESS - TUNNELED LINE 07/30/2018 IR Dialysis Access - Tunneled Line 07/30/2018 Walt Lin MD [facility] INTERVENTIONL RAD ??? IR DIALYSIS ACCESS - TUNNELED LINE 08/30/2018 IR Dialysis Access - Tunneled Line 08/30/2018 Erwin Simon, JAVA SOFTWARE ENGINEER [facility] INTERVENTIONL RAD ??? IR DIALYSIS ACCESS - TUNNELED LINE 12/27/2020 IR Dialysis Access - Tunneled Line 12/27/2020 Kanu Apple MD [facility] INTERVENTIONL RAD ??? IR DIALYSIS ACCESS - TUNNELED LINE 01/23/2021 IR Dialysis Access - Tunneled Line 01/23/2021 Kanu Apple MD [facility] INTERVENTION[facility] RAD ??? IR DIALYSIS ACCESS - TUNNELED LINE 03/20/2021 IR Dialysis Access - Tunneled Line 03/20/2021 Tab Harmon MD [facility] INTERVENTIONL RAD ??? KIDNEY TRANSPLANT KIDNEY TRANSPLANT / RECIPIENT/LT Procedure Date: 11/26/2002 ??? PRO CREAT AV FISTULA, NON-AUTOGENOUS GRAFT Right 12/13/2018 PLACEMENT, AV HEMODIALYSIS GRAFT, SYNTHETIC GRAFT, UPPER EXTREMITY (WRVU 12.03) performed by Mary Garay MD at [facility] MAIN OR ??? PRO CREAT AV FISTULA, NON-AUTOGENOUS GRAFT Left 04/03/2021 PLACEMENT, AV HEMODIALYSIS GRAFT, SYNTHETIC GRAFT, UPPER EXTREMITY (WRVU 12.03) performed by Odalis Tong MD at [facility] MAIN OR ? ? PRO DEBRIDEMENT SUBCUTANEOUS TISSUE 20 SQCM/< Left 02/20/2016 DEBRIDEMENT SKIN AND SUBCU, HEAD/NECK performed by Miguel Angel Moreno MD at [facility] MAIN OR ??? PRO DECOMPRESS FOREARM, BRACH ART EXPLOR Left 04/06/2018 FASCIOTOMY, FOREARM, WITH BRACHIAL ARTERY EXPLORATION (WRVU 8.41) performed by Lida Peter MDat [facility] OR ??? PRO DIRECT REPAIR RUPTURED ANEURYSM, AXILLO-BRACHIAL ARM INCIS Left 04/06/2018 @REPAIR, RUPTURED AXILLARY OR BRACHIAL ARTERY ANEURYSM BY ARM INCISION (WRVU *) performed by Lida Peter MD at [facility] OR ??? PRO EXC PAROTD, TOTAL, UNILAT RAD NECK Left 02/05/2016 @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, TOTAL, WITH UNILATERAL RADICAL NECK DISSECTION performed by Miguel Angel Moreno MD at [facility] OR ??? PRO EXC SKIN MALIG 3.1-4CM FACE, FACIAL Left 02/05/2016 EXC MALIGNANT LESION, 3.1 TO 4.0CM, FACE performed by Miguel Angel Moreno MD at [facility] OR ? ? PRO EXC SKIN MALIG >4CM TRUNK, ARM, LEG 04/19/2012 EXC MALIGNANT LESION, MICHAEL > 4.0CM, TRUNK performed by SABRINA SANCHEZ at [facility] OR ??? PRO LAP, RADICAL NEPHRECTOMY Left 05/31/2017 @LAPAROSCOPY, RADICAL NEPHRECTOMY (WRVU 25.06) performed by Jax Mills MD at [facility] OR ??? PRO LIGATN ANGIOACCESS AV FISTULA Left 04/19/2018 LIGATION OR BANDING OF HEMODIALYSIS FISTULA OR GRAFT UPPER EXTREMITY (WRVU 6.25) performed by Odalis Tong MD at [facility] MAIN OR ??? PRO NEGATIVE PRESSURE WOUND THERAPY, LESS THAN OR EQUAL TO 50 SQCM Left 04/19/2018 DRESSING CHANGE (VAC ASSISTED) UP TO 50SQ.CM (WRVU 0.55) performed by Odalis Tong MD [facility] MAIN OR ??? PRO REBL VES GRAFT, UP EXTREM Left 04/06/2018 REPAIR BLOOD VESSEL WITH GRAFT OTHER THAN VEIN, UPPER EXTREMITY (WRVU 15.83) performed by Lida Peter MD at [facility] MAIN OR ??? PRO RELIEVE PRESSURE ON NERVE(S) Left 04/06/2018 (MSURG) CARPAL TUNNEL (WRVU 4.82) performed by Silviano Sparks MD at [facility] MAIN OR ??? PRO REPAIR INTERMEDIATE S/A/T/E 2.6-7.5 CM 04/19/2012 REPAIR INTERMEDIATE WOUND, (NO HANDS OR FEET) 2.6 TO 7.5CM, UPPER EXTREMITY performed by SABRINA SANCHEZ at [facility] MAIN OR ? ? PRO REPAIR INTERMEDIATE S/A/T/E > 30.0 CM Left 04/14/2018 REPAIR INTERMEDIATE WOUND, (NO HANDS OR FEET) >30.0CM, UPPER EXTREMITY (WRVU 5) performed by Yimi Easton MD at [facility] MAIN OR ??? PRO REVISE MEDIAN N/CARPAL TUNNEL SURG Left 04/06/2018 MEDIAN NERVE DECOMPRESSION (CARPAL TUNNEL RELEASE) (WRVU 4.97) performed by Lida Peter MD [facility] MAIN OR ? ? PRO SPLIT GRFT TRUNK, ARM, LEG <100SQCM Left 04/26/2018 SPLIT THICK SKIN GRAFT,100 SQ CM OR LESS, ARMS (WRVU 9.9) performed by Silviano Sparks MD at [facility] MAIN OR ? ? PRO SPLIT GRFT, HEAD, FAC, HAND, FEET <100SQCM N/A 02/20/2016 SPLIT THICKNESS SKIN SPLIT GRAFT,100SQ CM OR LESS, NECK performed by Miguel Angel Moreno MD at [facility] MAIN OR ??? PRO SPLIT GRFT, TRUNK, ARM, LEG EA 100SQCM N/A 04/26/2018 EA.ADDITIONAL 100SQ.CM STSG (WRVU 1.72) performed by Silviano Sparks MD at [facility] MAIN OR ??? PRO UPPER GI ENDOSCOPY, BIOPSY N/A 05/13/2017 EGD WITH BIOPSY (WRVU 2.49) performed by Aditya Barrera MD at [facility] ENDOSCOPY ??? PRO VASCULAR SURGERY PROCEDURE UNLIST Left 11/20/2015 LIGATION\REPAIR AV FISTULA performed by Camilo Ireland MD at [facility] MAIN OR ??? PRO VASCULAR SURGERY PROCEDURE UNLIST Left 11/20/2015 EXCISION VEIN FROM HAND performed by Camilo Ireland MD at [facility] MAIN OR ??? US RENAL TRANSPLANT BIOPSY 12/31/2010 ??? US RENAL TRANSPLANT RIGHT Right 06/04/2018 US Renal Transplant Right 06/04/2018 [facility] RAD ULTRASOUND Functional Status/Social Hx: Social History Socioeconomic History ??? Marital status: Single Spouse name: Not on file ??? Number of children: Not on file ??? Years of education: Not on file ??? Highest education level: Not on file Occupational History ??? 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 Smoking status: Former Smoker [...] AVG (SFA- SFV) and stab phlebectomy. Angelina Marrero Vascular Surgery Pager #[phone] documented in this encounter Nursing Notes * [...] COVID test: Lab Results Component Value Date [id number] Not Detected 05/22/2021 Past medical History: Past [...] cane - straight Home Address confirmed as: [address] [place] [address] Social & Family Supports: All names listed below confirmed with patient as current and correct Extended Emergency Contact Information Primary Emergency Contact: Lucas Ambrose Address: [address] [place] [address] [facility] Mobile Relation: Sibling Secondary Emergency Contact: Yenifer Frausto Address: [address] [place] [address] Mobile Relation: Aunt/Uncle Current Care Provided by: [...] MEDICAID [place] Prescription Coverage: Yes Preferred Pharmacy: [id number] - [place], [place] - [address] [facility] [address] [facility] [phone] [facility] - [place], [place] - [address] [place] [address] Primary Care Provider: Carroll Fuentes DO [phone] Patient/Caregiver Goals of Treatment: Patient will return to assisted living facility Potential Needs for Transition of Care: none Agency Referrals: Return to service: [facility] [address] P: [phone] F: [phone] [facility] [address] [facility] [address] Patient will discharge today. Transportation: no concerns [...] assist with transition of care planning. Ama GAFFNEY RN Phone: [phone] Pager: [phone] * Op Note - Tristin Marrero MD - 05/22/2021 4:00 PM EST [facility] Operative Note Patient Name: Christy Ambrose : [id number] MR#: [id number] Case Date: 05/22/2021 Surgeon: Surgeon(s) and Role: [...] incision is completely closed without any wires, ias, drains or other devices Disposition: awakened from [...] Implant Name Type Inv. Item Serial No. Specialty Department Supervisor Lot No. LRB No. Used Action GRAFT VASCULAR [id number] STRAIGHT HEPARIN COATED STANDARD ([id number]) - [id number] IMPLANTS GRAFT VASCULAR [id number] STRAIGHT HEPARIN COATED STANDARD ([id number]) [id number] [employer] Right 1 Implanted GRAFT VASCULAR [id number] STRAIGHT HEPARIN COATED THIN WALL ([id number]) - [id number] IMPLANTS GRAFT VASCULAR [id number] STRAIGHT HEPARIN COATED THIN WALL ([id number]) [id number] [employer] - [employer] AN Right 1 Wasted Associated attestation - Odalis Tong MD - 05/23/2021 10:18 AM EST Attestation: Case Date: 05/22/2021 I was present and scrubbed for the entire procedure. ODALIS TONG MD 05/23/2021 * Consult Note - Ortega Girard MD - 05/22/2021 3:54 PM EST [facility] HYPERTENSION/ NEPHROLOGY INPATIENT CONSULTATION PATIENT: Christy Ambrose : 1960 REASON FOR CONSULTATION: Management of ESRD and new right thigh graft referred by Dr. 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 HD center: [facility] Days: MWF Access: [facility] Outpatient dialysis prescription - Time: 4H - [...] AV Fistula Evaluations 11/30/2019 Sabrina Velez MD [facility] INTERVENTIONL RAD ??? IR DIALYSIS ACCESS - AV FISTULA EVALUATIONS 01/07/2021 IR Dialysis Access - AV Fistula Evaluations 01/07/2021 Sabrina Velez MD [facility] INTERVENTIONL RAD ??? IR DIALYSIS ACCESS - TUNNELED LINE 07/30/2018 IR Dialysis Access - Tunneled Line 07/30/2018 Walt Lin MD [facility] INTERVENTIONL RAD ??? IR DIALYSIS ACCESS - TUNNELED LINE 08/30/2018 IR Dialysis Access - Tunneled Line 08/30/2018 Erwin Simon APRN [facility] INTERVENTIONL RAD ??? IR DIALYSIS ACCESS - TUNNELED LINE 12/27/2020 IR Dialysis Access - Tunneled Line 12/27/2020 Kanu Apple MD [facility] INTERVENTIONL RAD ??? IR DIALYSIS ACCESS - TUNNELED LINE 01/23/2021 IR Dialysis Access - Tunneled Line 01/23/2021 Kanu Apple MD [facility] INTERVENTIONL RAD ??? IR DIALYSIS ACCESS - TUNNELED LINE 03/20/2021 IR Dialysis Access - Tunneled Line 03/20/2021 Tab Harmon MD [facility] INTERVENTIONL RAD ??? KIDNEY TRANSPLANT KIDNEY TRANSPLANT / RECIPIENT/LT Procedure Date: 11/26/2002 ??? PRO CREAT AV FISTULA, NON-AUTOGENOUS GRAFT Right 12/13/2018 PLACEMENT, AV HEMODIALYSIS GRAFT, SYNTHETIC GRAFT, UPPER EXTREMITY (WRVU 12.03) performed by Mary Garay MD at [facility] OR ??? PRO CREAT AV FISTULA, NON-AUTOGENOUS GRAFT Left 04/03/2021 PLACEMENT, AV HEMODIALYSIS GRAFT, SYNTHETIC GRAFT, UPPER EXTREMITY (WRVU 12.03) performed by Odalis Tong MD at [facility] OR ? ? PRO DEBRIDEMENT SUBCUTANEOUS TISSUE 20 SQCM/< Left 02/20/2016 DEBRIDEMENT SKIN AND SUBCU, HEAD/NECK performed by Miguel Angel Moreno MD at [facility] OR ??? PRO DECOMPRESS FOREARM, BRACH ART EXPLOR Left 04/06/2018 FASCIOTOMY, FOREARM, WITH BRACHIAL ARTERY EXPLORATION (WRVU 8.41) performed by Lida Peter MDat [facility] OR ??? PRO DIRECT REPAIR RUPTURED ANEURYSM, AXILLO-BRACHIAL ARM INCIS Left 04/06/2018 @REPAIR, RUPTURED AXILLARY OR BRACHIAL ARTERY ANEURYSM BY ARM INCISION (WRVU *) performed by Lida Peter MD at [facility] OR ??? PRO EXC PAROTD, TOTAL, UNILAT RAD NECK Left 02/05/2016 @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, TOTAL, WITH UNILATERAL RADICAL NECK DISSECTION performed by Miguel Angel Moreno MD at [facility] OR ??? PRO EXC SKIN MALIG 3.1-4CM FACE, FACIAL Left 02/05/2016 EXC MALIGNANT LESION, 3.1 TO 4.0CM, FACE performed by Miguel Angel Moreno MD at [facility] OR ? ? PRO EXC SKIN MALIG >4CM TRUNK, ARM, LEG 04/19/2012 EXC MALIGNANT LESION, MICHAEL > 4.0CM, TRUNK performed by SABRINA SANCHEZ at [facility] OR ??? PRO LAP, RADICAL NEPHRECTOMY Left 05/31/2017 @LAPAROSCOPY, RADICAL NEPHRECTOMY (WRVU 25.06) performed by Jax Mills MD at [facility] OR ??? PRO LIGATN ANGIOACCESS AV FISTULA Left 04/19/2018 LIGATION OR BANDING OF HEMODIALYSIS FISTULA OR GRAFT UPPER EXTREMITY (WRVU 6.25) performed by Odalis Tong MD at [facility] OR ??? PRO NEGATIVE PRESSURE WOUND THERAPY, LESS THAN OR EQUAL TO 50 SQCM Left 04/19/2018 DRESSING CHANGE (VAC ASSISTED) UP TO 50SQ.CM (WRVU 0.55) performed by Odalis Tong MD [facility] MAIN OR ??? PRO REBL VES GRAFT, UP EXTREM Left 04/06/2018 REPAIR BLOOD VESSEL WITH GRAFT OTHER THAN VEIN, UPPER EXTREMITY (WRVU 15.83) performed by Lida Peter MD at [facility] MAIN OR ??? PRO RELIEVE PRESSURE ON NERVE(S) Left 04/06/2018 (MSURG) CARPAL TUNNEL (WRVU 4.82) performed by Silviano Sparks MD at [facility] MAIN OR ??? PRO REPAIR INTERMEDIATE S/A/T/E 2.6-7.5 CM 04/19/2012 REPAIR INTERMEDIATE WOUND, (NO HANDS OR FEET) 2.6 TO 7.5CM, UPPER EXTREMITY performed by SABRINA SANCHEZ at [facility] MAIN OR ? ? PRO REPAIR INTERMEDIATE S/A/T/E > 30.0 CM Left 04/14/2018 REPAIR INTERMEDIATE WOUND, (NO HANDS OR FEET) >30.0CM, UPPER EXTREMITY (WRVU 5) performed by Yimi Easton MD at [facility] MAIN OR ??? PRO REVISE MEDIAN N/CARPAL TUNNEL SURG Left 04/06/2018 MEDIAN NERVE DECOMPRESSION (CARPAL TUNNEL RELEASE) (WRVU 4.97) performed by Lida Peter MD [facility] OR ? ? PRO SPLIT GRFT TRUNK, ARM, LEG <100SQCM Left 04/26/2018 SPLIT THICK SKIN GRAFT,100 SQ CM OR LESS, ARMS (WRVU 9.9) performed by Silviano Sparks MD at [facility] MAIN OR ? ? PRO SPLIT GRFT, HEAD, FAC, HAND, FEET <100SQCM N/A 02/20/2016 SPLIT THICKNESS SKIN SPLIT GRAFT,100SQ CM OR LESS, NECK performed by Miguel Angel Moreno MD at [facility] MAIN OR ??? PRO SPLIT GRFT, TRUNK, ARM, LEG EA 100SQCM N/A 04/26/2018 EA.ADDITIONAL 100SQ.CM STSG (WRVU 1.72) performed by Silviano Sparks MD at [facility] MAIN OR ??? PRO UPPER GI ENDOSCOPY, BIOPSY N/A 05/13/2017 EGD WITH BIOPSY (WRVU 2.49) performed by Aditya Barrera MD at [facility] ENDOSCOPY ??? PRO VASCULAR SURGERY PROCEDURE UNLIST Left 11/20/2015 LIGATION\REPAIR AV FISTULA performed by Camilo Ireland MD at [facility] MAIN OR ??? PRO VASCULAR SURGERY PROCEDURE UNLIST Left 11/20/2015 EXCISION VEIN FROM HAND performed by Camilo Ireland MD at [facility] MAIN OR ??? US RENAL TRANSPLANT BIOPSY 12/31/2010 ??? US RENAL TRANSPLANT RIGHT Right 06/04/2018 US Renal Transplant Right 06/04/2018 [facility] RAD ULTRASOUND FH: Family History Problem Relation [...] GLUCOSEU 50 (A) 07/19/2018 0947 KETONESUA Negative 07/19/201847 UROBILIUADIP Normal 07/19/201847 BLOODUADIP Negative 07/19/201847 NITRATEUA Negative 07/19/2018 0947 LEUKOESTERUA Negative 07/19/2018 [...] Operative Note Patient Name: Christy Ambrose : [id number] MR#: [id number] Case Date: 05/22/2021 Surgeon: Surgeon(s) and Role: [...] Implant Name Type Inv. Item Serial No. Specialty Department Supervisor Lot No. LRB No. Used Action GRAFT VASCULAR [id number] STRAIGHT HEPARIN COATED STANDARD ([id number]) - [id number] IMPLANTS GRAFT VASCULAR [id number] STRAIGHT HEPARIN COATED STANDARD ([id number]) [id number] - [employer] Right 1 Implanted GRAFT VASCULAR [id number] STRAIGHT HEPARIN COATED THIN WALL ([id number]) - [id number] IMPLANTS GRAFT VASCULAR [id number] STRAIGHT HEPARIN COATED THIN WALL ([id number]) [id number] [employer] - ANUJ GARCIA AN Right 1 Wasted documented in this [...] Phleb Veins - Extrem - To 20 (39315) 05/22/2021 12:11 PM EST ESRD (end stage renal disease) Pre-op testing Anastomosis, Av, Any Site (00320) 05/22/2021 12:11 PM EST ESRD (end stage [...] Text Report Department: Vascular Surgery Lab Patient: [id number] (ARNOL, CHRISTY) CPT: 72358 ICD10: N18.6;Z99.2 Referring Physician: CRYSTAL OCHOA ?? [...] 5:21 AM EST) Neutrophil % 72.5 % [facility] Neutrophil Absolute 6.02 1.70 - 6.10 x10(3)/[facility] Lymph % 16.2 % [facility] Lymphocytes Abs 1.3 0.9 - 3.2 x10(3)/[facility] LAB[facility] Monocyte % 10.0 % [facility] Monocyte Abs 0.8 0.3 - 0.9 x10(3)/[facility] LAB[facility] Eos % 0.4 % [facility] Eosinophils Abs 0.0 0.0 - 0.4 x10(3)/[facility] Basophil % 0.4 % [facility] Baso Absolute 0.0 0.0 - 0.1 x10(3)/[facility] LABOR[facility]ORY Immature Gran % 0.50 % [facility] Comment: Immature granulocytes(IG's)percentage and absolute count will include metamyelocytes, myelocytes, and promyelocytes. Blood smears from CBCs yielding IG's will be scanned manually for concordance. If this scan disagrees with the automated IG or if promyelocytes are noted, a manual differential will be performed. Immature Gran Absolute 0.04 0.00 - 0.04 x10(3)/[facility] LAB[facility] Blood 05/23/2021 5:21 AM EST 05/23/2021 5:28 AM EST Narrative Resulting Agency Comment Spec In Lab Tristin Marrero MD HEMATOLOGY ORDERABL ES Performing Organization Address City/State/[facility] Co de Phone Number [facility] [place] [phone] * (ABNORMAL) Hemogram (05/23/2021 5:21 AM EST) [...] CENTER LABORATORY Platelet 143(L) 145 - 357 x10(3)/ L [facility] RDW Standard Deviation 47.2(H) 36.0 - 45.0 [facility] RDW coefficient of variation 13.2 11.4 - 13.8 % [facility] Mean Platelet Volume 8.9 7.6 - 12.9 [facility] LABORATORY NRBC% auto 0.0 % [facility] NRBC Absolute 0.000 0.000 - 0.000 x10(3)/mc L [facility] Blood 05/23/2021 5:21 AM EST 05/23/2021 5:28 AM EST Narrative Resulting Agency Comment Spec In Lab Tristin Marrero MD HEMATOLOGY ORDERABL ES [facility] [place] [address] * Phosphorus (05/23/2021 5:21 AM EST) Phosphorus 3.9 2.5 - 4.5 mg/dL [facility] Blood 05/23/2021 5:21 AM EST 05/23/2021 5:28 AM EST Narrative Resulting Agency Comment Spec In Lab Odalis Tong MD CHEMISTRY ORDER KELLY Performing Organization Address City/[facility]/ZIP Co de Phone Number [facility] [place] [address] * Magnesium (05/23/2021 5:21 AM EST) Magnesium 0.74 0.69 - 1.07 mmol/L [facility] Blood 05/23/2021 5:21 AM EST 05/23/2021 5:28 AM EST Narrative Resulting Agency Comment Spec In Lab Odalis Tong MD CHEMISTRY ORDER KELLY [facility] [place] [address] * (ABNORMAL) Basic Metabolic Panel (non-fasting) (05/23/2021 5:21 AM EST) Glucose 100 65 - 199 mg/dL [facility] [...] ORDER KELLY [facility] [place] [address] * (ABNORMAL) Basic Metabolic Panel (non-fasting) (05/22/2021 [...] Lab Bowen Jessica MD CHEMISTRY ORDERA BLES [facility] [place] [address] * (ABNORMAL) Blood Gas Venous (05/22/2021 3:25 [...] MD CHEMISTRY ORDER KELLY Performing Organization Address City/[facility]/ZIP Co de Phone Number [facility] [place] [address] * POCT Glucose (05/22/2021 3:00 PM EST) Glucose, POC 153 65 - 199 mg/dL [facility] Comment: Supplemental ranges: <140 mg/dL before meals <180 mg/dL all other times of the day Blood 05/22/2021 3:00 PM EST 05/22/2021 3:00 PM EST Odalis Tong MD POINT OF CARE T EST ORDERABLES Performing Organization Address City/[facility]/ZIP Co de Phone Number [facility] [place] [address] * (ABNORMAL) BLOOD GAS 2 ARTERIAL (05/22/2021 2:42 PM EST) pH, Arterial 7.49(H) 7.35 - 7.45 [facility] Comment: Noted by instrument repair supervisor. Critical notified to Padmini Felipe by instrument repair supervisor immediately following run time. Please note: [...] [facility] FIO2 Art 50 % [facility] PF Ratio Art 346 [facility] Blood 05/22/2021 2:42 PM EST 05/22/2021 2:42 PM EST Odalis Tong MD POINT OF CARE T EST ORDERABLES [facility] [place] [address] * POCT Glucose (05/22/2021 2:19 PM EST) Pathologist [facility] Glucose, POC 179 65 - 199 mg/dL [facility] Comment: Supplemental ranges: <140 mg/dL before meals <180 mg/dL all other times of the day Blood 05/22/2021 2:19 PM EST 05/22/2021 2:19 PM EST Odalis Tong MD POINT OF CARE T EST ORDERABLES Performing Organization Address [facility] Co de Phone Number [facility] [place] [address] * COVID-19 PCR (05/22/2021 1:55 PM EST) [facility] SARS-CoV-2 RNA (Rapid) Not Detected Not Detected [...] using the Simplexa COVID-19 Direct Assay by [employer] as authorized by the FDA issued Emergency [...] Department of Pathology and Laboratory Medicine at [facility], certified under the Clinical Laboratory Improvement [...] fact sheets at the following FDA website: https://www.fda.gov/medical-devices/gvytitndhmu-dzxuwbt-9159-wnkqo-44-ieknjvikg- use-a rbvhcchmjawzt-isioijf-btvkrpv/dszzh-fmudiyspnfe-uzud SARS-CoV-2 Source SOFTWARE SALES EXECUTIVE Swab CT RY [facility] Nasopharyngeal Swab 05/22/20 21 1:55 PM EST 05/22/2021 1:55 PM EST Comment:Symptoms->Surveillan ce Narrative Resulting Agency Comment Spec In Lab Odalis Tong MD MICROBIOLOGY - GENERAL ORDERABLES [facility] [place] [address] * (ABNORMAL) BLOOD GAS 2 ARTERIAL (05/22/2021 [...] [facility] Comment: Noted by instrument repair supervisor. Critical notified to Padmini Felipe by instrument repair supervisor immediately following run time. Please note: [...] [facility] FIO2 Art 61 % [facility] Flow Art 0.7 LPM [facility] PF Ratio Art 303 [facility] Temp Art 35.0 Celsius [facility] Blood 05/22/2021 1:30 PM EST 05/22/2021 1:30 PM EST Odalis Tong MD POINT OF CARE T EST ORDERABLES Performing Organization Address City/State/[facility] Co de Phone Number [facility] [place] [address] * (ABNORMAL) Potassium (05/22/2021 1:25 PM EST) [facility] Potassium 7.3(Criti constance) 3.5 - 5.0 mmol/L [...] MD CHEMISTRY ORDER KELLY Performing Organization Address [facility] Co de Phone Number [facility] [place] [place] [address] * (ABNORMAL) BLOOD GAS 2 ARTERIAL (05/22/2021 12:30 PM EST) [facility] pH, Arterial 7.36 7.35 - 7.45 [facility] PCO2, Arterial 57(H) 35 - 45 mmHg [facility] PO2, Arterial 38(Critica l) 85 - 104 mmHg [facility] Comment: Not noted by instrument repair supervisor. Critical notified to Noted by instrument repair supervisor. Critical notified to Padmini Felipe by instrument repair supervisor immediately following run time. Bicarbonate, Arterial [...] there are any questions. Not noted by instrument repair supervisor. Critical notified to Noted by instrument repair supervisor. Critical notified to Padmini Felipe by instrument repair supervisor immediately following run time. ICa Whole [...] EST ORDERABLES [facility] [place] [address] documented in this encounter Visit Diagnoses Diagnosis [...] IN DIALYSIS PRN, 1 dose, Starting on Mariza 05/22/21 at 1616, Until Wed05/23/21 at 1233, Line [...] 2 TIMES DAILY, First dose on Mariza 05/22/21 at 2200, Until Discontinued, Routine Given 05/23/2021 [...] 2 TIMES DAILY, First dose on Mariza 05/22/21 at 2200, Until Discontinued, DO NOT CRUSH [...] 2 TIMES DAILY, First dose on Mariza 05/22/21 at 2200, Until Discontinued, Routine Given 05/23/2021 8:59 AM EST 2 tablets sodium chloride 0.9 % (flush) (BD PosiFlush Normal Saline 0.9) flush 5 mL 5 mL, Intravenous, 2 TIMES DAILY, First dose on Mariza 05/22/21 at 2200, Until Discontinued, Routine Given 05/22/2021 10:00 PM EST 5 mLs tacrolimus (Prograf) capsule 1 mg 1 mg, Oral, 2 TIMES DAILY, First dose on Mariza 05/22/21 at 2200, Until Discontinued, DO NOT SPLIT, [...] , Routine 1558 (Given - Provider: Erwin Álvarez RN)2141 (Given - Provider: Peter Ye RN) 0415 (Not Given - Provider: Peter [...] 100 mL infusion (COMPLETED) 2 g, Intravenous, DATA CONTROL CLERK SUPERVISOR TO O.R., 1 dose, On Wed05/22/21 at 1045, Administer over 30 Minutes, Redose [...] on Wed05/22/21 at 2200, Until Discontinued, Routine 2140 (Not Given - Provider: Peter Ye RN [...] on Wed05/22/21 at 2200, Until Discontinued, Routine 2200 (Given - Provider: Peter Ye RN) 1328 [...] IN DIALYSIS PRN, 1 dose, Starting on Mariza 05/22/21 at 1616, Until Wed05/23/21 at 1233, Line [...] first. documented in this encounter Care Teams Director Corporate Security Relationship Specialty Start Date End Date Carroll Fuentes DO [address] [place], [place] [address] [place] [address] PCP - General 09/23/11 10/20/22 documented as of this encounter
--- OUTSIDE RECORDS SUMMARY | 2024-04-22 10:53 | XMS_ITS | Encounter Summary ---
Author Organization [facility] Address [facility] [place] [address] Care Team Providers Care Anesthesia Attending Name Role Phone Carroll Fuentes DO Primary Care Provider [phone] Encounter Details Date Type Department Care Team (Late st Contact Info) Description 02/06/2021 Telephone Solid [place] [phone] Tessa Flores MSW [facility] [place] [address] Social History Tobacco Use Types Packs/Day Years [...] Progress Notes * Tessa Flores MSW - 02/07/2021 8:32 AM EDT Worker received a call from Adama Zavala's brother saying that Adama just got approved for [facility]. He has been working with Dona from [employer]. He said that Dona informed Lucas that Adama most likely did not need a [employer] policy. He just wanted to get a second opinion and checked in with worker.After checking with the manager of financial worker informed Lucas that he should go with what Dona recommended. No other needs at this time. documented in this encounter Plan of Treatment Not on file documented as of this encounter Visit Diagnoses Not on filedocumented in this encounter Care Teams Anesthesia Attending Relationship Specialty Start Date End Date Carroll Fuentes DO [address] [place] [address] PCP - General 09/23/11 10/20/22 documented as of this encounter
--- OUTSIDE RECORDS SUMMARY | 2024-04-22 10:53 | XMS_ITS | Encounter Summary ---
Author Organization [facility] [place] [address] Care Team Providers Care Ic Engineer Name Role Phone AlfredoCarroll allison Primary Care Provider [phone] Reason for Referral * Diagnostic Test (Routine) - Specialty Diagnoses / Procedures Referred By Shashi ko Referred To Contact Diagnoses ESRD (end stage renal disease) Pre-op testing Procedures First Time Hemodialysis access Aries Tong MD [facility] [place] [address] [facility] [address] [place] [id number] Referral ID Status Reason Start Date Expiration Date Visits Requested Visits Authorized [id number] Specialty Service Requested 04/30/2021 04/30/2022 1 1 Encounter Details Date Type Department Care Team (Late st Contact Info) Description 04/30/2021 Orders [place] [address] Crista Dasilva CMA ESRD (end stage renal disease); Pre-op testing [...] documented as of this encounter Results * First Time Hemodialysis access (05/02/2021 2:30 PM EDT) VB Text Report Department: Vascular Surgery Lab Patient: [id number] (ARNOL, CHRISTY) CPT: 22266 ICD10: Z01.818;N18.6;Z 01.818 Referring Physician: ARIES TONG [...] unspecified documented in this encounter Care Teams Ic Engineer Relationship Specialty Start Date End Date Carroll Fuentes DO [address] [place] [address] PCP - General 09/23/11 10/20/22 documented as of this encounter
--- OUTSIDE RECORDS SUMMARY | 2024-04-22 10:53 | XMS_ITS | Encounter Summary ---
Author Organization [facility] Address [facility] [place] [address] Care Team Providers Care Pipeline Welder Name Role Phone Carroll Fuentes DO Primary Care Provider Reason for Referral * Diagnostic Test (Routine) - Closed Specialty Diagnoses / Procedures Referred By Shashi ko Referred To Contact Radiology Diagnoses ESRD (end stage renal disease) Procedures IR Dialysis Access - Tunneled Line Carroll Baires MD [facility] [place] [address] [place] [address] Referral ID Status Reason Start Date Expiration Date V isits Requested Visits Authorized [id number] Closed Specialty Service Requested 01/21/2021 07/24/2022 1 1 Encounter Details Date Type Department Care Team (Late st Contact Info) Description 01/21/2021 Orders Only Neph[place] [address] Carroll Baires MD [facility] [place] [address] ESRD (end stage renal disease) [...] removed; a 8 mm x 4 cm HAND SPRAY OPERATOR balloon was advanced and inflated along the [...] 1. No SVC stenosis on venography 2. HAND SPRAY OPERATOR balloon disruption of any potential catheter-related sheath [...] by the IR Nurse. Carroll Baires MD IMG IR ORDERABLES documented in this encounter Visit Diagnoses Diagnosis ESRD (end stage renal disease) End stage renal disease ESRD (end stage renal disease) End stage renal disease documented in this encounter Care Teams Pipeline Welder Relationship Specialty Start Date End Date Carroll Fuentes DO [address] [facility] [address] [place] [address] PCP - General 09/23/11 10/20/22 documented as of this encounter
--- OUTSIDE RECORDS SUMMARY | 2024-04-22 10:53 | XMS_ITS | Encounter Summary ---
[place] [address] Care Team Providers Care Representative Phlebotomy Services Name Role Phone AlfredoCarroll allison Primary Care Provider Encounter Details Date Type Department Care Team (Late st Contact Info) Description 02/26/2021 Orders Only [place] [address] Krysta Treviño RN ESRD (end stage renal [...] as of this encounter Progress Notes * Krysta Treviño RN - 02/26/2021 9:19 AM EDT This report writer phoned [facility], ([phone]) where the patient lives and spoke with Anabella [employer], who clarified that this patient is not on coumadin or plavix, and is on aspirin 81 mg daily. documented in this encounter Plan of Treatment Not on file documented as of this encounter Results * Potassium (04/03/2021 6:55 AM EDT) Potassium 5.0 3.5 - 5.0 mmol/L [facility] Comment: Please note: ??Patients with WBC >100,000 may have falsely elevated Potassium levels. ??For accurate Potassium quantification in these patients send serum separator tube (gold top) for subsequent determinations. ??Contact the Clinical Chemistry Laboratory if there are any questions. Blood 04/03/2021 6:55 AM EDT 04/03/2021 7:00 AM EDT Narrative Resulting Agency Comment Spec In Lab Odalis Elias MD CHEMISTRY ORDER KELLY [facility] [place] [address] documented in this encounter Visit Diagnoses Diagnosis ESRD (end stage renal disease) End stage renal disease Pre-op testing Preoperative examination, unspecified documented in this encounter Care Teams Representative Phlebotomy Services Relationship Specialty Start Date End Date Carroll Fuentes DO [address] [place] [address] PCP - General 09/23/11 10/20/22 documented as of this encounter
--- OUTSIDE RECORDS SUMMARY | 2024-04-22 10:53 | XMS_ITS | Encounter Summary ---
Author Organization [facility] [place] [address] Care Team Providers Care Federal Appellate Clerk Name Role Phone AlfredoCarroll allison Primary Care Provider Encounter Details Date Type Department Care Team (Late st Contact Info) Description 02/27/2021 Telephone [place] [phone] Sharmin Cloud Social History Tobacco Use Types Packs/Day Years [...] encounter Miscellaneous Notes * Telephone Encounter - Sharmin Cloud - 02/27/2021 8:30 AM EDT I spoke with Anabella from [facility] - We have scheduled Adama for his Surgery with Dr. Elias on 03/13/21. Patient requires Transpo to be set up early. They will at this time plan to have him here for check in at 11am. Anabella will call if any more information is needed or vice versa. * Telephone Encounter - Sharmin Cloud - 02/27/2021 8:03 AM EDT LVM for call back to schedule Surgery with Benjie Pryor/Julito RNs documented in this encounter Plan of Treatment Not on file documented as of this encounter Visit Diagnoses Not on filedocumented in this encounter Care Teams Federal Appellate Clerk Relationship Specialty Start Date End Date Carroll Fuentes DO [address] [place] [address] PCP - General 09/23/11 10/20/22 documented as of this encounter
--- OUTSIDE RECORDS SUMMARY | 2024-04-22 10:53 | XMS_ITS | Encounter Summary ---
Author Organization [facility] [place] [address] Care Team Providers Care Elementary [employer] Art Teacher Name Role Phone Carroll Fuentes DO Primary Care Provider [phone] Encounter Details Date Type Department Care Team (Late st Contact Info) Description 05/13/2021 Telephone [place] [phone] Sharmin Cloud Social History Tobacco Use Types [...] * Telephone Encounter - Sharmin Cloud - 05/13/2021 1:03 PM EDT I called and spoke with Ivette at [facility] - we have scheduled Adama for his procedure to be with Dr. Anderson on 05/22/21. documented in this encounter Plan of Treatment Not on file documented as of this encounter Visit Diagnoses Not on filedocumented in this encounter Care Teams Elementary [employer] Art Teacher Relationship Specialty Start Date End Date Carroll Fuentes DO [address] [place] [address] PCP - General 09/23/11 10/20/22 documented as of this encounter
--- OUTSIDE RECORDS SUMMARY | 2024-04-22 10:53 | XMS_ITS | Encounter Summary ---
Author Organization [facility] Address [facility] [place] [address] Care Team Providers Care Network Operations Specialist Name Role Phone AlfredoCarroll allison Primary Care Provider [phone] Reason for Referral * Consultation (Routine) - Closed Specialty Diagnoses / Procedures Referred By Shashi ko Referred To Contact Vascular Surgery Diagnoses ESRD (end stage renal disease) Trever Boyd MD [facility] [place] [address] [facility] Vascular Surg [address] [place] [address] Referral ID Status Reason Start Date Expiration Date V isits Requested Visits Authorized [id number] Closed Specialty Service Requested 01/24/2021 01/24/2022 1 1 Encounter Details Date Type Department Care Team (Late st Contact Info) Description 01/24/2021 Orders Only [place] [address] Trever Boyd MD [facility] [place] [address] ESRD (end stage renal disease) [...] as of this encounter Plan of Treatment Scheduled Referrals Name Type Priority Associated Diagnoses Orde r Schedule Referral to Vascular Surgery Outpatient Referral Routine ESRD (end stage renal disease) Ordered: 01/24/2021 documented as of this encounter Visit Diagnoses Diagnosis ESRD (end stage renal disease) End stage renal disease documented in this encounter Care Teams Network Operations Specialist Relationship Specialty Start Date End Date Carroll Fuentes DO [address] [place] [address] [address] [place] [address] PCP - General 09/23/11 10/20/22 documented as of this encounter
--- OUTSIDE RECORDS SUMMARY | 2024-04-22 10:53 | XMS_ITS | Encounter Summary ---
Author Organization [facility] [place] [address] Care Team Providers Care Endless Steamer Tender Name Role Phone Alfredo, Carroll MIX Primary Care Provider Encounter Details Date Type Department Care Team (Late st Contact Info) Description 03/27/2021 Telephone [place] [address] Sharmin Cloud Social History Tobacco Use Types [...] * Telephone Encounter - Sharmin Cloud - 03/27/2021 1:53 PM EDT I spoke with Anabella at [facility] - we have rescheduled Mr. Ram for his AVF Surgery with for 04/03/21. documented in this encounter Plan of Treatment Not on file documented as of this encounter Visit Diagnoses Not on filedocumented in this encounter Care Teams Endless Steamer Tender Relationship Specialty Start Date End Date Alfredo, Carroll, DO [address] [place] [address] PCP - General 09/23/11 10/20/22 documented as of this encounter
--- OUTSIDE RECORDS SUMMARY | 2024-04-22 10:54 | XMS_ITS | Encounter Summary ---
Author Organization [facility] Address [facility] [place] [address] Care Team Providers Care Grades 9 Thru 12 Visiting Teacher Name Role Phone AlfredoCarroll allison Primary Care Provider [phone] Reason for Referral * Diagnostic Test (Emergency) - Closed Specialty Diagnoses / Procedures Referred By Shashi ko Referred To Contact Radiology Diagnoses ESRD (end stage renal disease) Procedures IR Dialysis Access - Tunneled Line Gaby Mesa MD [facility] [place] [address] [place] [address] Referral ID Status Reason Start Date Expiration Date V isits Requested Visits Authorized [id number] Closed Specialty Service Requested 12/27/2020 06/28/2022 1 1 Encounter Details Date Type Department Care Team (Late st Contact Info) Description 12/27/2020 Orders Only [place] [address] Gaby Mesa MD ESRD (end stage renal disease) Social History [...] prior dialysis catheters in setting of nonfunctional squaxin access. ?? Technique: ?? After discussing risks [...] by the IR Nurse. Gaby Mesa MD IMG IR ORDERABLES documented in this encounter Visit Diagnoses Diagnosis ESRD (end stage renal disease) End stage renal disease ESRD (end stage renal disease) End stage renal disease documented in this encounter Care Teams Grades 9 Thru 12 Visiting Teacher Relationship Specialty Start Date End Date Carroll Fuentes DO [address] [place] [address] PCP - General 09/23/11 10/20/22 documented as of this encounter
--- OUTSIDE RECORDS SUMMARY | 2024-04-22 10:54 | XMS_ITS | Encounter Summary ---
[place] [address] Care Team Providers Care Barrel Turner Name Role Phone AlfredoCarroll allison Primary Care Provider Reason for Referral * Diagnostic Test (Routine) - Closed Specialty Diagnoses / Procedures Referred By Shashi ko Referred To Contact Radiology Diagnoses ESRD (end stage renal disease) Procedures IR Dialysis Access - AV Fistula Evaluations Giovani Molina MBBS [facility] [place] [address] [place] [address] Referral ID Status Reason Start Date Expiration Date V isits Requested Visits Authorized [id number] Closed Specialty Service Requested 11/29/2019 05/31/2021 1 1 Reason for Visit * Diagnostic Test (Routine) - Closed Specialty Diagnoses / Procedures Referred By Shashi ko Referred To Contact Radiology Diagnoses ESRD (end stage renal disease) Procedures IR Dialysis Access - AV Fistula Evaluations Giovani Molina MBBS [facility] [place] [address] [place] [address] Referral ID Status Reason Start Date Expiration Date V isits Requested Visits Authorized [id number] Closed Specialty Service Requested 11/29/2019 05/31/2021 1 1 Encounter Details Date Type Department Care Team (Latest Contact Info) Description 11/30/2019 6:19 AM EDT - 11/30/2019 11:59 PM EDT Hospital [place] [id number] Trever Boyd MD [facility] [address] ESRD (end stage renal disease) Discharge Disposition: [...] Sign Reading Time Taken Comments Blood Pressure 194/87 11/30/2019 11:15 AM EDT Pulse 50 11/30/2019 9:14 AM EDT Temperature 36.1 ??C (96.9 ??F) 11/30/2019 9:24 AM ED T Respiratory Rate 11 11/30/2019 9:14 AM EDT Oxygen Saturation 98% 11/30/2019 11:15 AM EDT Inhaled Oxygen Concentration - - Weight - - Height - - Body Mass Index - - documented in this encounter Discharge Instructions * Discharge Instructions* Paula Eng RN - 11/30/2019 7:04 AM EDT [facility] Vascular and Interventional Radiology Discharge [...] is during regular office hours, please call [phone]. If it is after regular office hours, or on weekends or holidays, please call [phone] and ask to speak to the Cashier Wrapper conservation enforcement officer for Interventional Radiology. You have received [...] as of this encounter Progress Notes * Paula Eng RN - 11/30/2019 7:03 AM EDT To procedure room 3 via stretcher. Onto table supine. All monitors, O2, safety strap in place. Med's per protocol. Fistulagrams only: Side: Right Sheath removed @: 0904 Tip stop time: Applied @ 0905, site released @ 15 Tip stop removal: * Paula Eng RN - 11/30/2019 7:03 AM EDT [facility] Name: CHRISTY AMBROSE Date of : 1960 AGE: 59 y.o. [address]: [address] [place] [id number] (home) Mobile: Telephone Information: Referring Provider: Giovani Molina REASON FOR VISIT: Order Questions Answers Where will study be performed? [facility] Radiology [120] Laterality Right Is the patient on anticoagulant / anitplatelet therapy ? Aspirin Reason for exam and clinical history: he is 59 yrs male with ESRD on dialysis through RUE brachocephalic graft with poor flow requesting fistulogram Allergies Allergen Reactions ??? Benazepril Hcl ??? [...] ml/min N18.4 ??? 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 long term current use of immunosuppressive drug Z79.899 ??? [...] stage chronic kidney disease N18.6 Date/Procedure Meds given/comments 08/30/18 Tunneled HD Cath exchange Fentanyl 100mcg IV 11/30/19 RUE fistulagram with multiple PTAs Fentanyl 175 mcg IV; Versed 3.5 mg IV (pt awake for the most part, bp sensitive to sedation even with half doses) ? Laboratory Results: Lab Results Component Value Date INR 0.9 08/03/2018 Lab Results Component Value Date CREATININE 5.17 (H) 12/14/2018 Lab Results Component Value Date K 4.5 12/14/2018 Lab Results Component Value Date PLATELET 172 12/13/2018 documented in this encounter H&P Notes * Wilfredo Rob MD - 11/30/2019 7:17 AM EDT INTERVENTIONAL RADIOLOGY FOCUSED H&P: Procedure: Planned procedure: RUE AVG [id number] The patient's history and physical exam have been reviewed and completed. There has been no interval change from that of the pre-operative history and physical exam done within the last 30 days. Physical Exam: Cardiovascular: Regular, Normal Pulmonary: Breath sounds clear to auscultation Abdomen: Soft NTND The planned procedure (and sedation plan if [...] Yes Allergies reviewed: Yes Source Note - Mitchell Dislatate, CATRACHITO - 11/29/2019 1:27 PM EDT INTERVENTIONAL RADIOLOGY FOCUSED H&P and PRE-PROCEDURE NOTE: PCP: Carroll Fuentes DO Referring Provider: Giovani Molina Planned Procedure: Planned procedure: RUE AVG [id number] RUE [id number] Order Questions Answers Where will study be performed? [facility] Radiology [120] Laterality Right Is the patient on anticoagulant / anitplatelet therapy ? Aspirin Reason for exam and clinical history: he is 59 yrs male with ESRD on dialysis through RUE brachocephalic graft with poor flow requesting fistulogram Presenting Diagnosis/ Complaint: Christy Ambrose is a 59 y.o. male with ESRD on HD who underwent placement of a Right brachioaxillary graft with 7 mm - 4 mm tapered Accuseal in December of 2018. Patient now with poor flows. No previous interventions on this AVG. Past Medical/Surgical History: Patient Active Problem List [...] ml/min N18.4 ??? 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 long term current use of immunosuppressive drug Z79.899 ??? [...] Date: 09/19/2010 ??? IR DIALYSIS ACCESS - TUNNELED LINE 07/30/2018 IR Dialysis Access - Tunneled Line 07/30/[address] [facility] INTERVENTIONL RAD ??? IR DIALYSIS ACCESS - TUNNELED LINE 08/30/2018 IR Dialysis Access - Tunneled Line 08/30/[address] [facility] INTERVENTIONL RAD ??? KIDNEY TRANSPLANT KIDNEY TRANSPLANT / RECIPIENT/LT Procedure Date: 11/26/2002 ??? PRO CREAT AV FISTULA, NON-AUTOGENOUS GRAFT Right 12/13/2018 PLACEMENT, AV HEMODIALYSIS GRAFT, SYNTHETIC GRAFT, UPPER EXTREMITY (WRVU 12.03) performed by Mary Garay MD at [facility] OR ? ? PRO DEBRIDEMENT SUBCUTANEOUS TISSUE 20 SQCM/< Left 02/20/2016 DEBRIDEMENT SKIN AND SUBCU, HEAD/NECK performed by Miguel Angel Moreno MD at [facility] OR ??? PRO DECOMPRESS FOREARM, BRACH ART EXPLOR Left 04/06/2018 FASCIOTOMY, FOREARM, WITH BRACHIAL ARTERY EXPLORATION (WRVU 8.41) performed by Lida Peter, Laureent [facility] OR ??? PRO DIRECT REPAIR RUPTURED ANEURYSM, AXILLO-BRACHIAL ARM INCIS Left 04/06/2018 @REPAIR, RUPTURED AXILLARY OR BRACHIAL ARTERY ANEURYSM BY ARM INCISION (WRVU *) performed by Lida Peter MD at [facility] OR ??? PRO EXC PAROTD, TOTAL, UNILAT RAD NECK Left 02/05/2016 @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, TOTAL, WITH UNILATERAL RADICAL NECK DISSECTION performed by Miguel Angel Moreno MD at [facility] OR ??? PRO EXC SKIN MALIG 3.1-4CM FACE, FACIAL Left 02/05/2016 EXC MALIGNANT LESION, 3.1 TO 4.0CM, FACE performed by Miguel Angel Moreno MD at [facility] OR ? ? PRO EXC SKIN MALIG >4CM TRUNK, ARM, LEG 04/19/2012 EXC MALIGNANT LESION, MICHAEL > 4.0CM, TRUNK performed by SABRINA SANCHEZ at [facility] OR ??? PRO LAP, RADICAL NEPHRECTOMY Left 05/31/2017 @LAPAROSCOPY, RADICAL NEPHRECTOMY (WRVU 25.06) performed by Jax Mills MD at [facility] OR ??? PRO LIGATN ANGIOACCESS AV FISTULA Left 04/19/2018 LIGATION OR BANDING OF HEMODIALYSIS FISTULA OR GRAFT UPPER EXTREMITY (WRVU 6.25) performed by Odalis Elias MD at [facility] OR ??? PRO NEGATIVE PRESSURE WOUND THERAPY, LESS THAN OR EQUAL TO 50 SQCM Left 04/19/2018 DRESSING CHANGE (VAC ASSISTED) UP TO 50SQ.CM (WRVU 0.55) [facility] ??? PRO REBL VES GRAFT, [...] performed by Lida Peter MD [facility] MAIN OR ? ? PRO [...] [facility] Medications: Current Outpatient Medications [...] on file prior to encounter. Allergies: Benazepril hcl; Codeine; Hydrochlorothiazide; and Pollen extracts Social History and Habits: Social History Socioeconomic History ??? Marital status: Single Spouse name: Not on file ??? Number of children: Not on file ??? Years of education: Not on file ??? Highest education level: Not on file Occupational History ??? 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 Financial resource strain: Not on file ??? Food insecurity Worry: Not on file Inability: Not on file ??? Transportation needs Medical: Not on file Non-medical: Not on file Tobacco Use ??? Smoking status: Former Smoker Packs/day: 0.25 Years: 1.50 Pack years: 0.37 Types: Cigarettes Last attempt to quit: 12/03/2000 Years since quittin.0 ??? Smokeless tobacco: Former User Quit date: 04/14/2001 Substance and Sexual Activity ??? Alcohol use: No ??? Drug use: No Types: Marijuana Comment: havent in ??? Sexual activity: Not on file Comment: Deferred Lifestyle ??? Physical activity Days per week: Not on file Minutes per session: Not on file ??? Stress: Not on file Relationships ??? Social connections Talks on phone: Not on file Gets together: Not on file Attends jain service: Not on file Active member of club or organization: Not on file Attends meetings of clubs or organizations: Not on file Relationship status: Not on file ??? Intimate partner violence Fear of current or ex partner: Not on file Emotionally abused: Not on file Physically abused: Not on file Forced sexual activity: Not on file Other Topics Concern ??? Not on file Social History Narrative ??? Not on file Significant Family History: Family History Problem Relation Age of Onset ??? Pancreatitis Father Pertinent ROS: as per HPI Labs: Lab Results Component Value Date WBC 4.8 12/13/2018 HCT 32.3 (L) 12/13/2018 PLATELET 172 12/13/2018 INR 0.9 08/03/2018 BUN 39 (H) 12/14/2018 CREATININE 5.17 (H) 12/14/2018 ALKPHOS 93 11/29/2018 AST 14 11/29/2018 ALBUMIN 4.2 11/29/2018 BILIDIR 0.2 05/15/2017 BILITOT 0.5 11/29/2018 ALT 13 11/29/2018 PROT 7.7 11/29/2018 K 4.5 12/14/2018 Assessment: 59 y.o. male with ESRD on HD who underwent placement of a Right brachioaxillary graft with 7 mm - 4 mm tapered Accuseal in December of 2018. Patient now with poor flows. No previous interventions on this AVG. Plan: Plan Planned procedure: RUE AVG [id number] Labs to be performed day of procedure: No labs Sedation: Moderate (Conscious sedation) Prophylactic antibiotic : None Contrast: Omnipaque Additional medications for procedure: Lidocaine Medications to discontinue (and days held): None Planned access site: RIGHT ARM AVG Position: Supine Cytopathology presence needed: No Consent: Pending 11/29/2019 * James Disla APRN - 11/29/2019 1:27 PM EDT INTERVENTIONAL RADIOLOGY FOCUSED H&P and PRE-PROCEDURE NOTE: PCP: Carroll Fuentes DO Referring Provider: Giovani Molina Planned Procedure: Planned procedure: RUE AVG [id number] RUE [id number] Order Questions Answers Where will study be performed? [facility] Radiology [120] Laterality Right Is the patient on anticoagulant / anitplatelet therapy ? Aspirin Reason for exam and clinical history: he is 59 yrs male with ESRD on dialysis through RUE brachocephalic graft with poor flow requesting fistulogram Presenting Diagnosis/ Complaint: Christy Ambrose is a 59 y.o. male with ESRD on HD who underwent placement of a Right brachioaxillary graft with 7 mm - 4 mm tapered Accuseal in December of 2018. Patient now with poor flows. No previous interventions on this AVG. Past Medical/Surgical History: Patient Active Problem List [...] ml/min N18.4 ??? 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 long term current use of immunosuppressive drug Z79.899 ??? [...] Date: 09/19/2010 ??? IR DIALYSIS ACCESS - TUNNELED LINE 07/30/2018 IR Dialysis Access - Tunneled Line 07/30/[address] [facility] INTERVENTIONL RAD ??? IR DIALYSIS ACCESS - TUNNELED LINE 08/30/2018 IR Dialysis Access - Tunneled Line 08/30/2018 Erwin Simon, ROLL ON WORKER [facility] INTERVENTIONL [...] performed by Miguel Angel Moreno MD at [facility] OR ??? PRO DECOMPRESS FOREARM, BRACH ART EXPLOR Left 04/06/2018 FASCIOTOMY, FOREARM, WITH BRACHIAL ARTERY EXPLORATION (WRVU 8.41) performed by Lida Peter, Laureent [facility] MAIN [...] performed by Miguel Angel Moreno MD at [facility] OR ??? PRO EXC SKIN MALIG 3.1-4CM FACE, FACIAL Left 02/05/2016 EXC MALIGNANT LESION, 3.1 TO 4.0CM, FACE performed by Miguel Angel Moreno MD at [facility] MAIN OR ? ? PRO EXC SKIN MALIG >4CM TRUNK, ARM, LEG 04/19/2012 EXC MALIGNANT LESION, MICHAEL > 4.0CM, TRUNK performed by SABIRNA SANCHEZ at [facility] MAIN OR ??? PRO LAP, RADICAL NEPHRECTOMY Left 05/31/2017 @LAPAROSCOPY, RADICAL NEPHRECTOMY (WRVU 25.06) performed by Jax Mills MD at [facility] OR ??? PRO LIGATN ANGIOACCESS AV FISTULA Left 04/19/2018 LIGATION OR BANDING OF HEMODIALYSIS FISTULA OR GRAFT UPPER EXTREMITY (WRVU 6.25) performed by Odalis Elias MD at [facility] MAIN OR ??? PRO NEGATIVE PRESSURE WOUND THERAPY, LESS THAN OR EQUAL TO 50 SQCM Left 04/19/2018 DRESSING CHANGE (VAC ASSISTED) UP TO 50SQ.CM (WRVU 0.55) performed by Odalis Elias MD [facility] MAIN OR ??? PRO REBL [...] 4.97) performed by Lida Peter MD [facility] OR ? ? PRO SPLIT GRFT [...] performed by Miguel Angel Moreno MD at [facility] OR ??? PRO SPLIT GRFT, TRUNK, [...] [facility] Medications: Current Outpatient Medications [...] on file prior to encounter. Allergies: Benazepril hcl; Codeine; Hydrochlorothiazide; and Pollen extracts Social History and Habits: Social History Socioeconomic History ??? Marital status: Single Spouse name: Not on file ??? Number of children: Not on file ??? Years of education: Not on file ??? Highest education level: Not on file Occupational History ??? 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 Financial resource strain: Not on file ??? Food insecurity Worry: Not on file Inability: Not on file ??? Transportation needs Medical: Not on file Non-medical: Not on file Tobacco Use ??? Smoking status: Former Smoker Packs/day: 0.25 Years: 1.50 Pack years: 0.37 Types: Cigarettes Last attempt to quit: 12/03/2000 Years since quittin.0 ??? Smokeless tobacco: Former User Quit date: 04/14/2001 Substance and Sexual Activity ??? Alcohol use: No ??? Drug use: No Types: Marijuana Comment: havent in /1995 ??? Sexual activity: Not on file Comment: Deferred Lifestyle ??? Physical activity Days per week: Not on file Minutes per session: Not on file ??? Stress: Not on file Relationships ??? Social connections Talks on phone: Not on file Gets together: Not on file Attends jain service: Not on file Active member of club or organization: Not on file Attends meetings of clubs or organizations: Not on file Relationship status: Not on file ??? Intimate partner violence Fear of current or ex partner: Not on file Emotionally abused: Not on file Physically abused: Not on file Forced sexual activity: Not on file Other Topics Concern ??? Not on file Social History Narrative ??? Not on file Significant Family History: Family History Problem Relation Age of Onset ??? Pancreatitis Father Pertinent ROS: as per HPI Labs: Lab Results Component Value Date WBC 4.8 12/13/2018 HCT 32.3 (L) 12/13/2018 PLATELET 172 12/13/2018 INR 0.9 08/03/2018 BUN 39 (H) 12/14/2018 CREATININE 5.17 (H) 12/14/2018 ALKPHOS 93 11/29/2018 AST 14 11/29/2018 ALBUMIN 4.2 11/29/2018 BILIDIR 0.2 05/15/2017 BILITOT 0.5 11/29/2018 ALT 13 11/29/2018 PROT 7.7 11/29/2018 K 4.5 12/14/2018 Assessment: 59 y.o. male with ESRD on HD who underwent placement of a Right brachioaxillary graft with 7 mm - 4 mm tapered Accuseal in December of 2018. Patient now with poor flows. No previous interventions on this AVG. Plan: Plan Planned procedure: RUE AVG [id number] Labs to be performed day of procedure: No labs Sedation: Moderate (Conscious sedation) Prophylactic antibiotic : None Contrast: Omnipaque Additional medications for procedure: Lidocaine Medications to discontinue (and days held): None Planned access site: RIGHT ARM AVG Position: Supine Cytopathology presence needed: No Consent: Pending 11/29/2019 documented in this encounter Procedure Notes * Sabrina Velez MD - 11/30/2019 9:21 AM EDT Images from the original note were not included. IR PROCEDURE NOTE Procedure: Right arm AV graft mechanical declot and venous angioplasty. Indication for Procedure: Per Christy Ojeda Ginna Ambrose is a 59 y.o. male with ESRD on HD who underwent placement of a Right brachioaxillarygraft with 7 mm - 4 mm tapered Accuseal??in December of 2018. ??Patient now with poor flows. No previous interventions on this AVG. Procedure events and findings: After obtaining informed consent, patient was positioned supine on procedure table. Right arm was prepped and draped, maximum sterile barrier technique was used throughout. Initial U/S showed no flow in the graft. Local anesthesia provided with 1% lidocaine. Due to the painful nature of the procedure, patient received split doses of intravenous fentanyl and versed from the IR nurse while pulse, pressure, and oxygen saturation were continuously monitored. Graft accessed with micropuncture technique under U/S guidance and a 4Fr sheath placed facing centrally. 4Fr sheath exchanged over guide wire for a 6Fr sheath. A guide wire and angled catheter were placed and directed centrally across the venous anastomosis. Venography showed flow centrally from the axilla via 3 separate vessels which emerged the level of the subclavian. There was an approximately 3 cm moderate to severe stenosis extending from the right innominate/SVC junction across the junction with the internal jugular vein and into the right subclavian vein. The graft vein anastomosis was dilated to 6 mm and the balloon then used to macerate clot within the accessible portion of the graft. Graft was then swept from peripheral to central with partially inflated balloon. Repeat venography showed residual stenosis at the vein graft anastomosis. An 8 mm angioplasty balloon catheter was placed and used to dilate the venous anastomosis. A second access was obtained in the same manner as the first and a another 6Fr sheath placed facingperipherally. An angled catheter and guidewire were placed and directed across the arterial anastomosis. A 6mm balloon catheter was placed, directed into the inflow artery and used to dilate the arterial anastomosis. 6 mm balloon was also used to macerate thrombus within the arterial portion of the graft. Venography centrally again showed flow via 3 channels from axilla to subclavian vein with stenosis of the central right subclavian and innominate veins. The central facing 6 Serbian sheath was exchanged for an 8 Serbian sheath. A 16 mm angioplasty balloon catheter was placed and used to dilate the subclavian and innominate stenosis. Post DENTAL FINANCIAL COORDINATOR venography showed persistent stenosis. An 18 mm angioplasty balloon catheter was then placed and also used to dilate the stenosis. Post DENTAL FINANCIAL COORDINATOR venography showedmild residual stenosis. 8 Serbian sheath was removed after placement of a pursestring suture, to be released later in Recovery. The 6 Serbian sheath was removed and hemostasis obtained with manual compression and a tip stop. Medications: Fentanyl 175 mcg IV, Versed 3.5 mg IV, 1% Lidocaine <10ccs subcutaneous. Est Blood Loss: <5cc. Complications: No immediate. Impression: 1. Right arm brachio-axillary AV graft was thrombosed. 2. Mechanical declot, 8mm DENTAL FINANCIAL COORDINATOR of venous anastomosis, 6mm DENTAL FINANCIAL COORDINATOR of arterial anastomosis. 3. Flow from anastomosis centrally, axilla to subclavian vein, via three channels 4. 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 Resident/Fellow: None. Attending: I, Dr. Velez performed this procedure. I was present during the intraservice time as documented by the IR Nurse. Post 18mm DENTAL FINANCIAL COORDINATOR documented in this encounter Plan of Treatment Not on file documented as of this encounter Procedures Procedure Name Priority Date/Time Associated Diagnosis Comments IR DIALYSIS ACCESS - AV FISTULA EVALUATIONS Routine 11/30/2019 10:14 AM EDT ESRD (end stage renal disease) documented in this encounter Results * IR Dialysis Access - AV Fistula Evaluations (11/30/2019 10:14 AM EDT) Anatomical Region Laterality Modality Abdomen X-Ray Angiograph y Narrative 11/30/2019 2:58 PM EDT IR PROCEDURE NOTE ?? Procedure: Right arm AV graft mechanical declot and venous angioplasty. ?? Indication for Procedure: Per Christy Ojeda??is a 59 y.o.??male??with ESRD on HD who underwent placement of a??Right brachioaxillary graft with 7 mm - 4 mm tapered Accuseal??in December of 2018. ??Patient now with poor flows. ??No previous interventions on this AVG. ?? Procedure events and findings: ??After obtaining informed consent, patient was positioned supine on procedure table. ??Right arm was prepped and draped, maximum sterile barrier technique was used throughout. ??Initial U/S showed no flow in the graft. ??Local anesthesia provided with 1% lidocaine. ??Due to the painful nature of the procedure, patient received split doses of intravenous fentanyl and versed from the IR nurse while pulse, pressure, and oxygen saturation were continuously monitored. ?? Graft accessed with micropuncture technique under U/S guidance and a 4Fr sheath placed facing centrally. ??4Fr sheath exchanged over guide wire for a 6Fr sheath. ??A guide wire and angled catheter were placed and directed centrally across the venous anastomosis. ??Venography showed flow centrally from the axilla via 3 separate vessels which emerged the level of the subclavian. ??There was an approximately 3 cm moderate to severe stenosis extending from the right innominate/SVC junction across the junction with the internal jugular vein and into the right subclavian vein. ?? The graft vein anastomosis was dilated to 6 mm and the balloon then used to macerate clot within the accessible portion of the graft. ??Graft was then swept from peripheral to central with partially inflated balloon. ?? Repeat venography showed residual stenosis at the vein graft anastomosis. ?? An 8 mm angioplasty balloon catheter was placed and used to dilate the venous anastomosis. ?? A second access was obtained in the same manner as the first and a another 6Fr sheath placed facing peripherally. ??An angled catheter and guidewire were placed and directed across the arterial anastomosis. ??A 6mm balloon catheter was placed, directed into the inflow artery and used to dilate the arterial anastomosis. ??6 mm balloon was also used to macerate thrombus within the arterial portion of the graft. ? Venography centrally again showed flow via 3 channels from axilla to subclavian vein with stenosis of the central right subclavian and innominate veins. ??The central facing 6 Serbian sheath was exchanged for an 8 Serbian sheath. ??A 16 mm angioplasty balloon catheter was placed and used to dilate the subclavian and innominate stenosis. ??Post DENTAL FINANCIAL COORDINATOR venography showed persistent stenosis. ??An 18 mm angioplasty balloon catheter was then placed and also used to dilate the stenosis. ??Post DENTAL FINANCIAL COORDINATOR venography showed mild residual stenosis. ? 8 Serbian sheath was removed after placement of a pursestring suture, to be released later in Recovery. ??The 6 Serbian sheath was removed and hemostasis obtained with manual compression and a tip stop. ?? Medications: Fentanyl 175 mcg IV, Versed 3.5 mg IV, 1% Lidocaine <10ccs subcutaneous. ?? Est Blood Loss: <5cc. ?? Complications: ??No immediate. ?? Impression: ?? 1. ??Right arm brachio-axillary AV graft was thrombosed. ?? 2. ??Mechanical declot, 8mm DENTAL FINANCIAL COORDINATOR of venous anastomosis, 6mm DENTAL FINANCIAL COORDINATOR of arterial anastomosis. ?? 3. ??Flow from anastomosis centrally, axilla to subclavian vein, via three channels ?? 4. 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 ?? Resident/Fellow: ??None. ?? Attending: I, Dr. Velez performed this procedure. ??I was present during the intraservice time as documented by the IR Nurse.? Post 18mm DENTAL FINANCIAL COORDINATOR ? Trever Boyd MD IMG IR ORDERABLES documented in this encounter Visit Diagnoses Diagnosis ESRD (end stage renal disease) End stage renal disease documented in this encounter Administered Medications Inactive Administered Medications - up to 3 most recent administrations Medication Order MAR Action Action Date Dose Rate Site fentaNYL 50 mcg/mL multi-dose injection 25-50 mcg, Intravenous, EVERY 3 MIN PRN, Starting on Mariza 11/30/19 at 0651, Until Mariza 11/30/19 at 1213, Pain, per unit protocol, - Start dose [...] and verbal order., Angio/IR (Intra-Procedure), Routine Given 11/30/2019 8:54 AM EDT 25 mcg Given 11/30/2019 8:26 AM EDT 25 mcg Given 11/30/2019 8:10 AM EDT 25 mcg iohexoL (OMNIPAQUE) 350 mg/mL solution 300 mL 300 mL, Intravenous, ONCE PRN, 1 dose, Starting on Mariza 11/30/19 at 1015, Until Mariza 11/30/19 at 1015, Per Protocol, Warning Vesicant/Irritant Medication , Day of Surgery (Day of Procedure), Routine Given 11/30/2019 10:15 AM EDT 110 mLs lidocaine (XYLOCAINE) 10 mg/mL (1 %) injection 10 mg 10 mg, Subcutaneous, ONCE, 1 dose, On Mariza 11/30/19 at 0715, For use in Interventional Radiology (IR) only for procedure with direct provider supervision and verbal order., Angio/IR (Intra-Procedure), Routine Given 11/30/2019 8:10 AM EDT 10 mg midazolam (PF) (VERSED) multi-dose injection 0.5-1 mg 0.5-1 mg, Intravenous, EVERY 3 MIN PRN, Starting on Mariza 11/30/19 at 0651, Until Mariza 11/30/19 at 1213, Sleep, - Start dose; 1 mg (Reduce [...] and verbal order., Angio/IR (Intra-Procedure), Routine Given 11/30/2019 8:54 AM EDT 0.5 mg Given 11/30/2019 8:26 AM EDT 0.5 mg Given 11/30/2019 8:10 AM EDT 0.5 mg sodium chloride 0.9% infusion 50 mL/hr, Intravenous, CONTINUOUS, Starting on Mariza 11/30/19 at 0715, Until Mariza 11/30/19 at 1213, Angio/IR (Day of Procedure) New Bag 11/30/2019 7:15 AM EDT 50 mL/hr 50 mL/hr documented in this encounter Care Teams Barrel Turner Relationship Specialty Start Date End Date Carroll Fuentes DO [address] [place] [address] PCP - General 09/23/11 10/20/22 documented as of this encounter
--- OUTSIDE RECORDS SUMMARY | 2024-04-22 10:54 | XMS_ITS | Encounter Summary ---
[place] [address] Care Team Providers Care Diesel Pile Hammer Operator Name Role Phone Carroll Fuentes DO Primary Care Provider [phone] Encounter Details Date Type Department Care Team (Late st Contact Info) Description 12/14/2018 Orders Only Nephrology [place] [address] Sagrario Hodges, RN Social History Tobacco Use Types Packs/Day [...] on filedocumented in this encounter Care Teams Diesel Pile Hammer Operator Relationship Specialty Start Date End Date Carroll Fuentes DO [address] [place] [address] PCP - General 09/23/11 10/20/22 documented as of this encounter
--- OUTSIDE RECORDS SUMMARY | 2024-04-22 10:54 | XMS_ITS | Encounter Summary ---
Author Organization [facility] Address [facility] [place] [address] Care Team Providers Care Teacher Vocational Training Name Role Phone Carroll Fuentes DO Primary Care Provider [phone] Encounter Details Date Type Department Care Team (Late st Contact Info) Description 12/17/2018 12:05 AM EDT Ancillary Procedure Radiology Library at [facility] [place] [address] Carroll Fuentes DO [address] [place], [place] [address] Social History Tobacco Use Types Packs/Day Years [...] FILM LIBRARY STORAGE ONLY DX CHEST Routine 12/17/2018 12:05 AM EDT documented in this encounter Results * Film Library- Storage Only DX Chest (12/17/2018 12:05 AM EDT) Narrative [facility] - 12/19/2018 11:26 AM EDT This exam is auto-finalizing. It's purpose is for storage only. Carroll Fuentes DO IMG FILM LIBRARY ORD ERABLES MIGUEL ÁNGEL [place], [place] documented in this encounter Visit Diagnoses Not on filedocumented in this encounter Care Teams Teacher Vocational Training Relationship Specialty Start Date End Date Carroll Fuentes DO [address] [place] [address] PCP - General 09/23/11 10/20/22 documented as of this encounter
--- OUTSIDE RECORDS SUMMARY | 2024-04-22 10:54 | XMS_ITS | Encounter Summary ---
Author Organization [facility] Address [facility] [place] [address] Care Team Providers Care Remote Sensing Surveyor Name Role Phone Alfredo Carroll MIX Primary Care Provider [phone] Encounter Details Date Type Department Care Team (Late st Contact Info) Description 08/30/2020 Telephone [place] [phone] Tessa Flores MSW [facility] [place] [address] Social History Tobacco Use Types Packs/Day Years [...] Progress Notes * Tessa Flores MSW - 08/30/2020 4:55 PM EST Worker received a call from Adama's brother Lucas regarding his insurance. dAama has been on [place] Medicaid for several years. He has been disabled for the past two years and is now eligible for Medicare. He asked if he this means that his brother will lose his Medicaid. Worker informed him that Medicarewill likely be primary and he can still keep his Medicaid as secondary. He will have to sign up forMedicare B (that will cover 80% of the cost of his immunosuppressants) as well as Medicare part D for prescriptions. These costs will be deducted from his monthly social security check. Lucas said he is in the process of working on a spend down so [facility]. Lucas said he appreciated the information. documented in this encounter Plan of Treatment Not on file documented as of this encounter Visit Diagnoses Not on filedocumented in this encounter Care Teams Remote Sensing Surveyor Relationship Specialty Start Date End Date Carroll Fuentes DO [address] [place] [address] PCP - General 09/23/11 10/20/22 documented as of this encounter
--- OUTSIDE RECORDS SUMMARY | 2024-04-22 10:54 | XMS_ITS | Encounter Summary ---
Author Organization [facility] Address [facility] [place] [address] Care Team Providers Care Manager Winter Name Role Phone Alfredo Carroll MIX Primary Care Provider [phone] Encounter Details Date Type Department Care Team (Late st Contact Info) Description 12/03/2020 Telephone Solid [place] [phone] Tessa Flores MSW [facility] [place] [address] Social History Tobacco Use Types Packs/Day Years [...] Progress Notes * Tessa Flores MSW - 12/03/2020 11:49 AM EDT Worker spoke to Adama's brother Lucas after he left a voicemail. Lucas said that his brother got both of his COVID shots, but was asking if there was a booster shot that transplant was recommending for transplanted patients as they do not build up as many antibodies. Worker informed Lucas that since Adama's kidney failed he is on a low dose of immunosuppressants per the team which may make him producemore antibodies than someone who takes higher doses of immunosuppressants. Worker informed Lucas that there are rumblings of a booster shot, but keeping up with [facility] or the [facility] would give him the answers in time. No other needs at this time. documented in this encounter Plan of Treatment Not on file documented as of this encounter Visit Diagnoses Not on filedocumented in this encounter Care Teams Manager Winter Relationship Specialty Start Date End Date Carroll Fuentes DO [address] [place] [address] PCP - General 09/23/11 10/20/22 documented as of this encounter
--- OUTSIDE RECORDS SUMMARY | 2024-04-22 10:54 | XMS_ITS | Encounter Summary ---
Author Organization [facility] Address [facility] [place] [address] Care Team Providers Care Acquisition Professional Name Role Phone Carroll Fuentes DO Primary Care Provider [phone] Encounter Details Date Type Department Care Team (Late st Contact Info) Description 09/19/2019 Telephone [place] [phone] Tessa Flores MSW [facility] [place] [address] Social History Tobacco Use Types Packs/Day Years [...] Progress Notes * Tessa Flores MSW - 09/20/2019 10:07 AM EDT Worker received a call from Adama's brother Lucas asking for assistance in getting Adama transferred over to [facility] from [facility] as he was having trouble with his dialysis and his blood pressure. Worker checked with the transfer center who informed worker that Dr. Paul declined the transfer due to capacity. Worker informed Lucas of this. Lucas asked if Adama was on the transplant list. Marksaid that Adama recently needed to go back on dialysis. Worker informed Lucas that there was no referral for Adama for a transplant and suggested that he speak to Adama's Health Promotion Specialist to have a referral send over to transplant. documented in this encounter Plan of Treatment Not on file documented as of this encounter Visit Diagnoses Not on filedocumented in this encounter Care Teams Acquisition Professional Relationship Specialty Start Date End Date Carroll Fuentes DO [address] [place] [address] PCP - General 09/23/11 10/20/22 documented as of this encounter
--- OUTSIDE RECORDS SUMMARY | 2024-04-22 10:54 | XMS_ITS | Encounter Summary ---
Author Organization [facility] [place] [address] Care Team Providers Care Naprapath Name Role Phone AlfredoCarroll allison Primary Care Provider [phone] Reason for Visit * Reason Onset Date Comments Advice Only 12/18/2018 Encounter Details Date Type Department Care Team (Late st Contact Info) Description 12/18/2018 Telephone [place] [phone] Odalis Castanon MD [facility] [place] [address] Advice Only Social History Tobacco Use Types Packs/Day Years [...] encounter Miscellaneous Notes * Telephone Encounter - Odalis Castanon MD - 12/18/2018 10:53 AM EDT Telephone call Pt sp AV graft on 12/13. Given 9000U heparin, no protamine. 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 No MÉNDEZ. Went to [facility] yest - labs normal. Incision well appearing. No signs of infection. I have asked RN who called from's pt's facility to reach out to neurosurgery who has followed him here for SDH. I suspect pt may need head CT considering sx, but would like neurosurgery to weigh in as this is their area of expertise. Odalis Castanon MD/NEHA, PGY-5 Section of Vascular Surgery, Pager [phone] documented in this encounter Plan of Treatment Not on file documented as of this encounter Visit Diagnoses Not on filedocumented in this encounter Care Teams Naprapath Relationship Specialty Start Date End Date Carroll Fuentes DO [address] [place] [address] PCP - General 09/23/11 10/20/22 documented as of this encounter
--- OUTSIDE RECORDS SUMMARY | 2024-04-22 10:54 | XMS_ITS | Encounter Summary ---
Author Organization [facility] Address [facility] [place] [address] Care Team Providers Care Roving Changer Name Role Phone Carroll Fuentes DO Primary Care Provider Encounter Details Date Type Department Care Team (Late st Contact Info) Description 12/17/2018 Ancillary Procedure Radiology Library at [facility] [place] [address] Carroll Fuentes DO [address] [place], [place] [address] Social History Tobacco Use Types Packs/Day Years [...] FILM LIBRARY STORAGE ONLY CT HEAD Routine 12/17/2018 12:00 AM EDT documented in this encounter Results * Film Library- Storage Only CT Head (12/17/2018 12:00 AM EDT) Narrative [facility] - 12/19/2018 11:24 AM EDT This exam is auto-finalizing. It's purpose is for storage only. Carroll Fuentes DO [facility] FILM LIBRARY ORD ERABLES [place], [place] documented in this encounter Visit Diagnoses Not on filedocumented in this encounter Care Teams Roving Changer Relationship Specialty Start Date End Date Carroll uFentes DO [address] [place] [address] [address] [place] [address] PCP - General 09/23/11 10/20/22 documented as of this encounter
--- OUTSIDE RECORDS SUMMARY | 2024-04-22 10:54 | XMS_ITS | Encounter Summary ---
Author Organization [facility] [place] [address] Care Team Providers Care Pv Design And Installation Technician Name Role Phone AlfredoCarroll allison Primary Care Provider [phone] Encounter Details Date Type Department Care Team (Late st Contact Info) Description 11/28/2019 Telephone [place] [address] Michell Roque, VASCULAR NURSE [facility] [place] [address] Social History Tobacco Use Types Packs/Day Years [...] encounter Miscellaneous Notes * Telephone Encounter - Michell Roque, RN - 11/28/2019 9:40 AM EDT I contacted Adama Ram to get a brief history prior to scheduling for kidney transplant evaluation. Cause of Kidney Disease: Unknown Dialysis: [facility] [address] [place] [address] Height: 5'10 Weight: 210# BMI: 30.1 Past Medical History: Diagnosis Date ??? BP [...] Tunneled Line 07/30/[address] [facility] INTERVENTIONL RAD ??? IR DIALYSIS ACCESS - TUNNELED LINE 08/30/2018 IR Dialysis Access - Tunneled Line 08/30/[address] [facility] INTERVENTIONL RAD ??? KIDNEY TRANSPLANT KIDNEY TRANSPLANT / RECIPIENT/LT Procedure Date: 11/26/2002 ??? PRO CREAT AV FISTULA, NON-AUTOGENOUS GRAFT Right 12/13/2018 PLACEMENT, AV HEMODIALYSIS GRAFT, SYNTHETIC GRAFT, UPPER EXTREMITY (WRVU 12.03) performed by Mary Garay MD at [facility] MAIN OR ? ? PRO DEBRIDEMENT SUBCUTANEOUS TISSUE 20 SQCM/< Left 02/20/2016 DEBRIDEMENT SKIN AND SUBCU, HEAD/NECK performed by Miguel Angel Moreno MD at [facility] OR ??? PRO DECOMPRESS FOREARM, BRACH ART EXPLOR Left 04/06/2018 FASCIOTOMY, FOREARM, WITH BRACHIAL ARTERY EXPLORATION (WRVU 8.41) performed by Lida Peter MDat [facility] OR ??? PRO DIRECT REPAIR RUPTURED ANEURYSM, AXILLO-BRACHIAL ARM INCIS Left 04/06/2018 @REPAIR, RUPTURED AXILLARY OR BRACHIAL ARTERY ANEURYSM BY ARM INCISION (WRVU *) performed by Lida Peter MD at [facility] OR ??? PRO EXC PAROTD, TOTAL, UNILAT RAD NECK Left 02/05/2016 @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, TOTAL, WITH UNILATERAL RADICAL NECK DISSECTION performed by Miguel Angel Moreno MD at [facility] OR ??? PRO EXC SKIN MALIG 3.1-4CM FACE, FACIAL Left 02/05/2016 EXC MALIGNANT LESION, 3.1 TO 4.0CM, FACE performed by Miguel Angel Moreno MD at [facility] MAIN OR ? ? PRO EXC SKIN MALIG >4CM TRUNK, ARM, LEG 04/19/2012 EXC MALIGNANT LESION, MICHAEL > 4.0CM, TRUNK performed by SABRINA SANCHEZ at [facility] MAIN OR ??? PRO LAP, RADICAL NEPHRECTOMY Left 05/31/2017 @LAPAROSCOPY, RADICAL NEPHRECTOMY (WRVU 25.06) performed by Jax Mills MD at [facility] MAIN OR ??? PRO LIGATN ANGIOACCESS AV FISTULA Left 04/19/2018 LIGATION OR BANDING OF HEMODIALYSIS FISTULA OR GRAFT UPPER EXTREMITY (WRVU 6.25) performed by Odalis Elias MD at [facility] MAIN OR ??? PRO NEGATIVE PRESSURE WOUND THERAPY, LESS THAN OR EQUAL TO 50 SQCM Left 04/19/2018 DRESSING CHANGE (VAC ASSISTED) UP TO 50SQ.CM (WRVU 0.55) performed by Odalis Elias MD [facility] MAIN OR ??? PRO REBL VES GRAFT, UP EXTREM Left 04/06/2018 REPAIR BLOOD VESSEL WITH GRAFT OTHER THAN VEIN, UPPER EXTREMITY (WRVU 15.83) performed by Lida Peter MD at [facility] MAIN OR ??? PRO RELIEVE PRESSURE ON NERVE(S) Left 04/06/2018 (MSURG) CARPAL TUNNEL (WRVU 4.82) performed by Silviano Sparks MD at [facility] MAIN OR ??? PRO REPAIR INTERMEDIATE S/A/T/E 2.6-7.5 CM 04/19/2012 REPAIR INTERMEDIATE WOUND, (NO HANDS OR FEET) 2.6 TO 7.5CM, UPPER EXTREMITY performed by SABRINA SANCHEZ at [facility] MAIN OR ? ? PRO REPAIR INTERMEDIATE S/A/T/E > 30.0 CM Left 04/14/2018 REPAIR INTERMEDIATE WOUND, (NO HANDS OR FEET) >30.0CM, UPPER EXTREMITY (WRVU 5) performed by Yimi Easton MD at [facility] MAIN OR ??? PRO REVISE MEDIAN N/CARPAL TUNNEL SURG Left 04/06/2018 MEDIAN NERVE DECOMPRESSION (CARPAL TUNNEL RELEASE) (WRVU 4.97) performed by Lida Peter MD [facility] MAIN OR ? ? PRO SPLIT GRFT TRUNK, ARM, LEG <100SQCM Left 04/26/2018 SPLIT THICK SKIN GRAFT,100 SQ CM OR LESS, ARMS (WRVU 9.9) performed by Silviano Sparks MD at [facility] MAIN OR ? ? PRO SPLIT GRFT, HEAD, FAC, HAND, FEET <100SQCM N/A 02/20/2016 SPLIT THICKNESS SKIN SPLIT GRAFT,100SQ CM OR LESS, NECK performed by Miguel Angel Moreno MD at [facility] MAIN OR ??? PRO SPLIT GRFT, TRUNK, ARM, LEG EA 100SQCM N/A 04/26/2018 EA.ADDITIONAL 100SQ.CM STSG (WRVU 1.72) performed by Silviano Sparks MD at [facility] MAIN OR ??? PRO UPPER GI ENDOSCOPY, BIOPSY N/A 05/13/2017 EGD WITH BIOPSY (WRVU 2.49) performed by Aditya Barrera MD at [facility] ENDOSCOPY ??? PRO VASCULAR SURGERY PROCEDURE UNLIST Left 11/20/2015 LIGATION\REPAIR AV FISTULA performed by Camilo Ireland MD at [facility] MAIN OR ??? PRO VASCULAR SURGERY PROCEDURE UNLIST Left 11/20/2015 EXCISION VEIN FROM HAND performed by Camilo Ireland MD at [facility] MAIN OR ??? US RENAL TRANSPLANT BIOPSY 12/31/2010 ??? US RENAL TRANSPLANT RIGHT Right 06/04/2018 US Renal Transplant Right 06/04/2018 [facility] RAD ULTRASOUND Social History Tobacco Use Smoking Status Former Smoker ??? Packs/day: 0.25 ??? Years: 1.50 ??? Pack years: 0.37 ??? Types: Cigarettes ??? Last attempt to quit: 12/03/2000 ??? Years since quittin.9 Smokeless Tobacco Former User ??? Quit date: 04/14/2001 Social History Substance and Sexual Activity Drug Use No ??? Types: Marijuana Comment: havent in years/1995 Do you have any dental issues, do you see a dentist regularly? Has partial plate and no issues. Does have a local dentist Have you ever been in counseling or received psychiatric treatment? Yes Does your current income meet your monthly needs? Yes Date of Transplant Evaluation: To call back after able to confirm ride and schedule kidney class. Demographics confirmed. documented in this encounter Plan of Treatment Not on file documented as of this encounter Visit Diagnoses Not on filedocumented in this encounter Care Teams Pv Design And Installation Technician Relationship Specialty Start Date End Date Carroll Fuentes DO [address] [facility] [place] [address] PCP - General 09/23/11 10/20/22 documented as of this encounter
--- OUTSIDE RECORDS SUMMARY | 2024-04-22 10:54 | XMS_ITS | Encounter Summary ---
Author Organization [facility] [place] [address] Care Team Providers Care Field Representative Name Role Phone AlfredoCarroll allison Primary Care Provider [phone] Encounter Details Date Type Department Care Team (Late st Contact Info) Description 12/12/2018 [place] [id number] Selma Lara Social History Tobacco Use Types Packs/Day Years [...] encounter Miscellaneous Notes * Telephone Encounter - Radha Duron - 12/30/2018 8:39 AM EDT Anand, Patient's CT scan is available for your review. I believe we usually speak with his brother Lucas who can be reached at [phone]. Thank you, Emma * Telephone Encounter - Odalis Jacob - 12/16/2018 12:08 PM EDT Called pt to inform of CT add on to already scheduled appts = LM Called Benjie Pryor to inquire if aware of pt appts = Anabella arranges transport for heydi appts = left information for CT w Anabella Postpone until 12/30 to send to DPS to review and call w results * Telephone Encounter - Odalis Jacob - 12/16/2018 10:39 AM EDT Pt scheduled for 12/29 ~~~~~~~~~~~~~~~~~~~~~~~~~ RN: CT order change for internal = DPS * Telephone Encounter - Odalis Jacob - 12/16/2018 10:17 AM EDT Called ERNIE to inquire about imaging See HK note below * Telephone Encounter - Selma Lara - 12/12/2018 11:02 AM EDT Pt not currently scheduled for appts at [facility] [place]. ?? Once they are scheduled - help patient to coordinate a CT appt when he'll already be here. DPS can call with results. Will postpone x 1 week. * Telephone Encounter - Selma Lara - 12/12/2018 11:02 AM EDT Regarding: FW: Appointment Follow-Up Question Contact: Please see message below. AC was working w/ Adama to coordinate his visits with NSGY w/ his other appts. Please continue in her absence. ----- Message ----- From: Adama Ram Sent: 12/02/2018 3:52 PM To: Sal Neurosurgery Nurse Subject: RE: Appointment Follow-Up Question ----- Message from H, My D - sent at 12/02/2018 3:52 PM EDT ----- This message is being sent by Lucas Ram on behalf of Adama Ram Adama has an upcoming surgery appt for a new dialysis fistula that is about 2 weeks EARLIER than the 3 month followup for his head CT. He will likely have more visits to [facility] concerning this surgery in the following weeks closer to the 3 month followup date of December 27. Sincerely, Lucas Ram Surgery Details(Adama) Thursday December 13, 2018 AM EDT Planned Procedures PLACEMENT, AV HEMODIALYSIS GRAFT, SYNTHETIC GRAFT, UPPER EXTREMITY Performed by Mary Garay MD Main Operating Room [facility] ----- Message ----- From: Office of PANCHITO NELSON Sent: 11/23/2018 11:02 AM EDT To: Adama Ram Subject: RE: Appointment Follow-Up Question Okay, we will keep an eye on Adama's appt desk to see when he is scheduled so we will be able to notify Anand promptly. You can reach CT scheduling directly at [phone]. Thank you! ----- Message ----- From: Adama Ram Sent: 11/23/2018 10:51 AM EDT To: PANCHITO NELSON Subject: RE: Appointment Follow-Up Question This message is being sent by Lucas Ram on behalf of Adama Ram Great! I just spoke to [facility] and they also thought there was a medicare/medicaid mixup for pre-authorization. I believe he is continuing on [place] medicaid. Sincerely, Lucas Ram ----- Message ----- From: Office of PANCHITO NELSON Sent: 11/23/2018 10:45 AM EDT To: Adama Ram Subject: RE: Appointment Follow-Up Question Rustam Lucas My apologies! I misunderstood your note, I will get working on scheduling a CT scan here at [facility] shantelle day where Adama will be here and will be sure to notify Anand Lugo when the results are available. I will message you when I have a CT date and time. ----- Message ----- From: Adama Ram Sent: 11/22/2018 10:08 PM EDT To: PANCHITO NELSON Subject: Appointment Follow-Up Question This message is being sent by Lucas Ram on behalf of Adama Ram Thank-you for moving Adama's followup head CT to [facility] back in September. I believe a 3 month followup is due in December, however, Adama is starting appointments with Vascular surgery for a new dialysis fistula, so he will likely be at [facility] several times over the next few weeks, making a shared visit possible. Adama will be in for 4 appts on WednesdayNovember 29- just 2 months. Sincerely, Lucas Ram documented in this encounter Plan of Treatment Not on file documented as of this encounter Visit Diagnoses Not on filedocumented in this encounter Care Teams Field Representative Relationship Specialty Start Date End Date Carroll Fuentes DO [address] [place] [address] PCP - General 09/23/11 10/20/22 documented as of this encounter
--- OUTSIDE RECORDS SUMMARY | 2024-04-22 10:54 | XMS_ITS | Encounter Summary ---
Author Organization [facility] Address [facility] [place] [address] Care Team Providers Care Striper Machine Name Role Phone Carroll Fuentes DO Primary Care Provider [phone] Encounter Details Date Type Department Care Team (Late st Contact Info) Description 09/18/2019 11:00 AM EDT Ancillary Procedure Radiology Library at [facility] [place] [address] Carroll Fuentes DO [address] [place], [place] [address] Social History Tobacco Use Types Packs/Day Years [...] FILM LIBRARY STORAGE ONLY CT HEAD Routine 09/18/2019 10:55 AM EDT documented in this encounter Results * Film Library- Storage Only CT Head (09/18/2019 10:55 AM EDT) Narrative CHETAN DEL ROSARIO - 09/18/2019 10:55 AM EDT This exam is auto-finalizing. It's purpose is for storage only. Carroll Fuentes DO IMG FILM LIBRARY ORD ERABLES MIGUEL ÁNGEL [place], [place] documented in this encounter Visit Diagnoses Not on filedocumented in this encounter Care Teams Striper Machine Relationship Specialty Start Date End Date Carroll Fuentes DO [address] [place] [address] PCP - General 09/23/11 10/20/22 documented as of this encounter
--- OUTSIDE RECORDS SUMMARY | 2024-04-22 10:54 | XMS_ITS | Encounter Summary ---
Author Organization [facility] Address [facility] [place] [address] Care Team Providers Care Functional Tester Name Role Phone AlfredoCarroll allison Primary Care Provider [phone] Reason for Visit * Auth/Cert Specialty Diagnoses / Procedures Referred By Shashi ko Referred To Contact Diagnoses ESRD on dialysis Procedures PRO CREAT AV FISTULA, NON-AUTOGENOUS GRAFT PLACEMENT, AV HEMODIALYSIS GRAFT, SYNTHETIC GRAFT, UPPER EXTREMITY (WRVU 12.03) Referral ID Status Reason Start Date Expiration Date Visits Re quested Visits Authorized [id number] 1 1 Encounter Details Date Type Department Care Team (Late st Contact Info) Description 12/13/2018 10:09 AM EDT Anesthesia [place] [address] Sven Ramires MD [facility] [place] [address] Anesthesia Record Procedure Summary Procedure Name Responsible Anesthesiologist Anesthesia Start Time Anesthesia Stop Time PLACEMENT, AV HEMODIALYSIS GRAFT, SYNTHETIC GRAFT, UPPER EXTREMITY (WRVU 12.03) (Right: Arm) Sven Ramires MD 12/13/18 1009 12/13/18 1205 Events Date Time Event Comment 12/13/2018 0959 1009 AN Verify 1009 Start 1009 An Start Data 1014 An Induction 1015 An Intubation 1016 Anesthesia Ready 1040 Procedure Start 1155 Extubation/LMA Out 1200 an stop data 1205 Recovery or ICU Handoff Randa ent care was transferred to the destination unit staff after review of the patient's medical history, current anesthetic/surgical status and plan, according to the Provider Handoff Checklist. 1205 Stop Meds Name Total Midazolam 2 mg fentaNYL 100 mcg IV Lidocaine 20 mg Propofol 240 mg PHENYLephrine 240 mcg ePHEDrine 30 mg Ondansetron 4 mg Glycopyrrolate 0.4 mg sodium chloride 0.9 % flush 5-20 mL 0 mL clindamycin (CLEOCIN) 900mg in dextrose 5% 50mL 900 mg Heparin 7,000 Units Atropine 0.3 mg Sodium Chloride 0.9% 900 mL Lactated Ringers 0 mL * Agents Name O2 Air N2O Sevoflurane (et) * Blood No blood administrations on file. Lines, Drains, and Airways Type Details Placement Removal NPWT 04/25/18; 1200; arm; placed shortly after admission (eDH upgrade); LDA not present upon assessment; 01/07/21; 1239 04/25/18 1200 by Meghan Sands RN 01/07/21 1239 by Carlos Alberto Butler RN (RETIRED) Tunneled Central Line - Double Lumen 07/30/18; 1308; other (see comments) (Right external jugular vein); other (see comments) (MedComp); other (see comments), length (specify) (14.5 Fr, 28 cm); Dr. Walt Lin; REF # [id number] [phone]; 04/16/21 (LDA Cleanup utility RA#[id number]); 1650 (LDA Cleanup utility RA#[id number]) 07/30/18 1308 by John Acosta RN 04/16/21 1650 by Reynaldo Mejia (RETIRED) Tunneled Central Line - Double Lumen 08/30/18; 1539; internal jugular vein, right; (14.5f/24cm); ([facility] IR); Not present upon assessment (lot#[id number]); 01/07/21; 1239 08/30/18 1539 by Danette Kunz RN 01/07/21 1239 by Carlos Alberto Butler RN Hemodialysis AV Access Device - Single Lumen 12/13/18; graft; upper arm, right; hemodialysis; Placed in OR, present on arrival to PACU 12/13 12:01; 11/05/21; 1436 12/13/18 0000 by Patty Vargas RN 11/05/21 1436 by Wilfredo Cuenca RN (RETIRED) Peripheral IV Line - Single Lumen 12/13/18; 0955; xxug-wuz-svkife catheter system; 20 gauge; 12/13/18; 1709 12/13/18 0955 by Yeni Macias RN 12/13/18 1709 by Odalis Rader RN Supraglottic Mask Ventilation: No t Attempted (0); LMA Type: iGel; LMA Size: 4; Inserted by: belinda jolly; Removal Date: 12/13/18; Removal Time: 1155 12/13/18 1028 by Naz Chilel MD 12/13/18 1155 by Naz Chilel MD documented in this encounter Social History Tobacco [...] OR Notes * Anesthesia Postprocedure Evaluation - Naz Chilel MD - 12/13/2018 12:18 PM EDT Department of Anesthesiology Post-procedure Note Patient: Adama Ram Procedure Summary Date: 12/13/18 Room / Location: [facility] OR [address] [place] [address] MAIN OR Anesthesia Start: 1009 Anesthesia Stop: Procedure: PLACEMENT, AV HEMODIALYSIS GRAFT, SYNTHETIC GRAFT, UPPER EXTREMITY (WRVU 12.03) (Right Arm) Diagnosis: (ESRD on dialysis) Surgeon: Mary Garay MD Responsible Provider: Sven Ramires MD Anesthesia Type: general ASA Status: 4 All Anesthesia Providers: Anesthesiologist: Sven Ramires MD Multimedia Services Coordinator: Naz Chilel MD Vitals Value Taken Time BP 110/69 12/13/2018 12:15 PM Temp Pulse 50 12/13/2018 12:17 PM Resp 10 12/13/2018 12:17 PM SpO2 94 % 12/13/2018 12:17 PM Pain Level Vitals shown include unvalidated device data. Patient Location: PACU/[facility] Level of Consciousness: Awake and Alert Pain Management: Satisfactory Analgesia PONV: None Cardiovascular Status: At Baseline Respiratory Status: At Baseline Postoperative Fluid Status: Intravascular EUvolemia Possible Anesthetic Complications: NONE apparent at time of evaluation Final Primary Anesthesia Type: General (The anesthetic type performed was the same as planned.) Comments: * Anesthesia Preprocedure Evaluation - Sven Ramires MD - 12/12/2018 4:17 PM EDT Images from the original note were not included. Pre-Anesthesia Evaluation for: Adama Ram a 58 y.o. male. Procedure(s): PLACEMENT, AV HEMODIALYSIS GRAFT, SYNTHETIC GRAFT, UPPER EXTREMITY [facility] Patient Active Problem List Diagnosis ??? ESRD (end stage renal disease) ??? [...] GFR 15-29 ml/min ??? 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 H/O [...] - Tunneled Line 07/30/2018 Walt Lin MD [facility] INTERVENTIONL RAD ??? IR DIALYSIS ACCESS - TUNNELED LINE 08/30/2018 IR Dialysis Access - Tunneled Line 08/30/2018 Erwin Simon APRN [facility] INTERVENTIONL RAD ??? KIDNEY TRANSPLANT KIDNEY TRANSPLANT / RECIPIENT/LT Procedure Date: 11/26/2002 ? ? PRO DEBRIDEMENT SUBCUTANEOUS TISSUE 20 SQCM/< Left 02/20/2016 DEBRIDEMENT SKIN AND SUBCU, HEAD/NECK performed by Miguel Angel Moreno MD at [facility] OR ??? PRO DECOMPRESS FOREARM, BRACH ART EXPLOR Left 04/06/2018 FASCIOTOMY, FOREARM, WITH BRACHIAL ARTERY EXPLORATION (WRVU 8.41) performed by Lida Peter, [facility] OR ??? PRO DIRECT REPAIR RUPTURED ANEURYSM, AXILLO-BRACHIAL ARM INCIS Left 04/06/2018 @REPAIR, RUPTURED AXILLARY OR BRACHIAL ARTERY ANEURYSM BY ARM INCISION (WRVU *) performed by Lida Peter MD at [facility] OR ??? PRO EXC PAROTD, TOTAL, UNILAT RAD NECK Left 02/05/2016 @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, TOTAL, WITH UNILATERAL RADICAL NECK DISSECTION performed by Miguel Angel Moreno MD at [facility] OR ??? PRO EXC SKIN MALIG 3.1-4CM FACE, FACIAL Left 02/05/2016 EXC MALIGNANT LESION, 3.1 TO 4.0CM, FACE performed by Miguel Angel Moreno MD at [facility] OR ? ? PRO EXC SKIN MALIG >4CM TRUNK, ARM, LEG 04/19/2012 EXC MALIGNANT LESION, MICHAEL > 4.0CM, TRUNK performed by SABRINA SANCHEZ at [facility] MAIN OR ??? PRO LAP, RADICAL NEPHRECTOMY Left 05/31/2017 @LAPAROSCOPY, RADICAL NEPHRECTOMY (WRVU 25.06) performed by Jax Mills MD at [facility] MAIN OR ??? PRO LIGATN ANGIOACCESS AV FISTULA Left 04/19/2018 LIGATION OR BANDING OF HEMODIALYSIS FISTULA OR GRAFT UPPER EXTREMITY (WRVU 6.25) performed by Odalis Elias MD at [facility] OR ??? PRO NEGATIVE PRESSURE WOUND THERAPY, LESS THAN OR EQUAL TO 50 SQCM Left 04/19/2018 DRESSING CHANGE (VAC ASSISTED) UP TO 50SQ.CM (WRVU 0.55) performed by Odalis Elias MD [facility] OR ??? PRO REBL VES GRAFT, UP EXTREM Left 04/06/2018 REPAIR BLOOD VESSEL WITH GRAFT OTHER THAN VEIN, UPPER EXTREMITY (WRVU 15.83) performed by Lida Peter MD at [facility] OR ??? PRO RELIEVE PRESSURE ON NERVE(S) Left 04/06/2018 (MSURG) CARPAL TUNNEL (WRVU 4.82) performed by Silviano Sparks MD at [facility] OR ??? PRO REPAIR INTERMEDIATE S/A/T/E 2.6-7.5 CM 04/19/2012 REPAIR INTERMEDIATE WOUND, (NO HANDS OR FEET) 2.6 TO 7.5CM, UPPER EXTREMITY performed by SABRINA SANCHEZ at [facility] OR ? ? PRO REPAIR INTERMEDIATE S/A/T/E > 30.0 CM Left 04/14/2018 REPAIR INTERMEDIATE WOUND, (NO HANDS OR FEET) >30.0CM, UPPER EXTREMITY (WRVU 5) performed by Yimi Easton MD at [facility] OR ??? PRO REVISE MEDIAN N/CARPAL TUNNEL SURG Left 04/06/2018 MEDIAN NERVE DECOMPRESSION (CARPAL TUNNEL RELEASE) (WRVU 4.97) performed by Lida Peter MD [facility] OR ? ? PRO SPLIT GRFT TRUNK, ARM, LEG <100SQCM Left 04/26/2018 SPLIT THICK SKIN GRAFT,100 SQ CM OR LESS, ARMS (WRVU 9.9) performed by Silviano Sparks MD at [facility] MAIN OR ? ? PRO SPLIT GRFT, HEAD, FAC, HAND, FEET <100SQCM N/A 02/20/2016 SPLIT THICKNESS SKIN SPLIT GRAFT,100SQ CM OR LESS, NECK performed by Miguel Angel Moreno MD at [facility] MAIN OR ??? PRO SPLIT GRFT, TRUNK, ARM, LEG EA 100SQCM N/A 04/26/2018 EA.ADDITIONAL 100SQ.CM STSG (WRVU 1.72) performed by Silviano Sparks MD at [facility] MAIN OR ??? PRO UPPER GI ENDOSCOPY, BIOPSY N/A 05/13/2017 EGD WITH BIOPSY (WRVU 2.49) performed by Aditya Barrera MD at [facility] ENDOSCOPY ??? PRO VASCULAR SURGERY PROCEDURE UNLIST Left 11/20/2015 LIGATION\REPAIR AV FISTULA performed by Camilo Ireland MD at [facility] MAIN OR ??? PRO VASCULAR SURGERY PROCEDURE UNLIST Left 11/20/2015 EXCISION VEIN FROM HAND performed by Camilo Ireland MD at [facility] MAIN OR ??? US RENAL TRANSPLANT BIOPSY 12/31/2010 ??? US RENAL TRANSPLANT RIGHT Right 06/04/2018 US Renal Transplant Right 06/04/2018 [facility] RAD ULTRASOUND Social History Tobacco Use ??? [...] home medications have been reviewed. Physical Exam: There were no vitals filed for this visit. There is no height or weight on file to calculate BMI. Airway Assessment: Mallampati: I TM distance: >3 FB Neck ROM: full Cardiovascular Assessment: Pulmonary Assessment: Dental Assessment: Misc Assessment: IV access: Peripheral line Anesthesia Plan: ASA 4 general, with a(n) intravenous induction Adama Ginna Ram is a 58 y.o. male with a hx significant for HTN, DVT, seizure disorder, TBI w/ epilepsy, renal cancer of L kidney s/p nephrectomy, IgA mediated ESRD s/p renal transplant, fistula creation x3 with emergent repair of LUE AVF in Mar 2018 (c/b PEA arrest - EF recovered to 65%), further c/b need for ligation and infection s/p debridements. Admitted in July 2018 w/ anasarca and uncontrolled BP found to have failed transplant. Started on HD via [facility] presenting for left brachial axillary AVG placement. Allergies: Allergen Reactions ??? Benazepril Hcl ??? Codeine Other (See Comments) Patient does not know reaction ??? Hydrochlorothiazide ??? Pollen Extracts Sneezing/runny nose Anesthesia Hx: iGel 4, easy MV, previous grade 1 w/ Mac 4, report of severe bradycardia unresponsive to glyco NPO status: adequate Pt activity level prior to surgery/admission to hospital: METs > 4 EKG: sinus bradycardia Echocardiogram: 04/28 EF 65%, no WMAs, no significant valve disease, LVH Labs: 11/29 Hb 11.8, plt 200, K 5.8, Cr 7.34 Plan is for GA with ETT/LMA vs regional block with sedation pending conversation with surgical team, standard ASA monitors, and adequate IV access. Anesthesia Staff Addendum: Patient seen and evaluated in SDP. Agree with assessment and plan as above. Plan for GA, LMA. Region - Other Informed Consent: Anesthetic plan and risks discussed with patient. Plan discussed with resident and attending. PAT Clinic Note documented in this encounter Plan of Treatment Not on file documented as of this encounter Visit Diagnoses Not on filedocumented in this encounter Administered Medications Inactive Administered Medications - up to 3 most recent administrations Medication Order MAR Action Action Date Dose Rate Site atropine injection PRN, Starting on Wed12/13/18 at 1111, Until Wed12/13/18 at 1218, Anesthesia Intra-op, Routine Given 12/13/2018 11:32 AM EDT 0.1 mg Given 12/13/2018 11:17 AM EDT 0.1 mg Given 12/13/2018 11:11 AM EDT 0.1 mg clindamycin (CLEOCIN) 900mg in dextrose 5% 50mL 900 mg, Intravenous, ONCE, 1 dose, On e 12/13/18 at 1000, Administer over 30 Minutes, Give over 30-60 minutes. Do not exceed 30mg/minute. Redose every 6 hours if CrCl is greater than 20. Redose every 6 hours if CrCl is less than 20., Day of Surgery (Day of Procedure), Indication for (Active or Suspected): Prophylaxis Given 12/13/2018 10:16 AM EDT 900 mg ePHEDrine 5 mg/mL multi-dose injection PRN, Starting on Wed12/13/18 at 1040, Until Wed12/13/18 at 1218, Anesthesia Intra-op, Routine Given 12/13/2018 11:06 AM EDT 10 mg Given 12/13/2018 10:40 AM EDT 10 mg Given 12/13/2018 10:21 AM EDT 10 mg fentaNYL 50 mcg/mL multi-dose injection PRN, Starting on Wed12/13/18 at 1040, Until Wed12/13/18 at 1218, Anesthesia Intra-op, Routine Given 12/13/2018 11:40 AM EDT 12.5 mcg Given 12/13/2018 11:37 AM EDT 12.5 mcg Given 12/13/2018 10:56 AM EDT 25 mcg glycopyrrolate (ROBINUL) multi-dose injection PRN, Starting on Wed12/13/18 at 1024, Until Wed12/13/18 at 1218, Anesthesia Intra-op, Routine Given 12/13/2018 10:35 AM EDT 0.2 mg Given 12/13/2018 10:24 AM EDT 0.2 mg heparin (porcine) injection PRN, Starting on Wed12/13/18 at 1104, Until 12/13/18 at 1218, Anesthesia Intra-op, Routine Given 12/13/2018 11:04 AM EDT 7,000 Units lactated ringers infusion CONTINUOUS PRN, Starting on e 12/13/18 at 1133, Until Tu12/13/18 at 1218, Anesthesia Intra-op New Bag 12/13/2018 11:33 AM EDT lidocaine (PF) (XYLOCAINE) 100 mg/5 mL (2 %) injection PRN, Starting on Wed12/13/18 at 1014, Until Wed12/13/18 at 1218, Anesthesia Intra-op, Routine Given 12/13/2018 10:14 AM EDT 20 mg midazolam (PF) (VERSED) multi-dose injection PRN, Starting on Wed12/13/18 at 1003, Until Wed12/13/18 at 1218, Anesthesia Intra-op, Routine Given 12/13/2018 10:09 AM EDT 1 mg Given 12/13/2018 10:03 AM EDT 1 mg ondansetron (ZOFRAN) injection PRN, Starting on Wed12/13/18 at 1146, Until Wed12/13/18 at 1218, Anesthesia Intra-op, Routine Given 12/13/2018 11:46 AM EDT 4 mg PHENYLephrine in NS (PF) (MILLI-SYNEPHRINE) 0.8 mg/10 mL (80 mcg/mL) multi-dose injection Syrg PRN, Starting on Wed12/13/18 at 1132, Until Wed12/13/18 at 1218, Anesthesia Intra-op, Routine Given 12/13/2018 11:36 AM EDT 160 mcg Given 12/13/2018 11:32 AM EDT 80 mcg propofol (DIPRIVAN) 10 mg/mL bolus injection (Anesthesia) PRN, Starting on Wed12/13/18 at 1014, Until Wed12/13/18 at 1218, Anesthesia Intra-op Given 12/13/2018 11:41 AM EDT 20 mg Given 12/13/2018 10:40 AM EDT 20 mg Given 12/13/2018 10:14 AM EDT 200 mg sodium chloride 0.9% infusion CONTINUOUS PRN, Starting on Wed12/13/18 at 1003, Until Wed12/13/18 at 1218, Anesthesia Intra-op New Bag 12/13/2018 10:03 AM E DT documented in this encounter Care Teams Functional Tester Relationship Specialty Start Date End Date Carroll Fuentes DO [address] [place] [address] PCP - General 09/23/11 10/20/22 documented as of this encounter
--- OUTSIDE RECORDS SUMMARY | 2024-04-22 10:54 | XMS_ITS | Encounter Summary ---
Author Organization [facility] Address [facility] [place] [address] Care Team Providers Care Machine Stitcher Name Role Phone AlfredoCarroll allison Primary Care Provider Reason for Referral * Diagnostic Test (Emergency) - Closed Specialty Diagnoses / Procedures Referred By Shashi ko Referred To Contact Radiology Diagnoses ESRD (end stage renal disease) Procedures IR Dialysis Access - AV Fistula Evaluations Gaby Mesa MD [facility] [place] [address] [place] [address] Referral ID Status Reason Start Date Expiration Date V isits Requested Visits Authorized [id number] Closed Specialty Service Requested 12/27/2020 06/28/2022 1 1 Encounter Details Date Type Department Care Team (Late st Contact Info) Description 12/27/2020 Orders Only [place] [address] Gaby Mesa MD ESRD (end [...] ?? Indication for Procedure: Per PANCHITO Ceron, Adama Ram??is a 60 y.o.??male??who presents to Interventional Radiology to undergo ...fistulagram in setting of ESRD and??non-accessible??fistula. ?? This is a patient who underwent creation of??right brachioaxillary 4-7 mm graft?by Vascular Surgery on 12/13/2018??who dialyzes at[facility].??The clinic contacted IR ...to report inability to access the patient's graft, with suspicion of possible thrombosis. ... ?? Multiple prior dialysis catheters in setting of nonfunctional tolowa dee-ni' access. Prior intervention by IR on 11/30/2019 -? 1. ??Right arm brachio-axillary AV graft was thrombosed. ?? 2. ??Mechanical declot, 8mm IVORY POLISHER of venous anastomosis, 6mm IVORY POLISHER of arterial anastomosis. ?? 3.?Flow from anastomosis centrally, axilla to??subclavian??vein, via??three channels ?? 4.?3cm moderate to??severe stenosis right??central subclavian and??innominate veins, mild residual stenosis after 18mm IVORY POLISHER. ?? Medical history notable for??hypertension, gout, traumatic [...] is ready for immediate use. ?? Mr. Ram has had dialysis via the HD catheter [...] across the subclavian and innominate vein occlusion. ??Standish wire exchanged for an Amplatz wire. ??The [...] with innumerable collaterals. ?? 3. ??16 mm IVORY POLISHER of right central subclavian and innominate veins [...] by the IR Nurse.? Gaby Mesa MD [facility] [place]LES documented in this encounter Visit Diagnoses Diagnosis ESRD (end stage renal disease) End stage renal disease ESRD (end stage renal disease) End stage renal disease documented in this encounter Care Teams Machine Stitcher Relationship Specialty Start Date End Date Carroll Fuentes DO [address] [place] [address] [address] [facility] [[email or web address] [address] [place] [address] PCP - General 09/23/11 10/20/22 documented as of this encounter
--- OUTSIDE RECORDS SUMMARY | 2024-04-22 10:54 | XMS_ITS | Encounter Summary ---
Author Organization [facility] [place] [address] Care Team Providers Care Thoracic Medicine Physician Name Role Phone Carroll Fuentes DO Primary Care Provider [phone] Encounter Details Date Type Department Care Team (Late st Contact Info) Description 11/14/2019 Abstract [place] [address] Kristyn Fletcher Social History Tobacco Use Types Packs/Day Years [...] on filedocumented in this encounter Care Teams Thoracic Medicine Physician Relationship Specialty Start Date End Date Carroll Fuentes DO [address] [place] [address] PCP - General 09/23/11 10/20/22 documented as of this encounter
--- OUTSIDE RECORDS SUMMARY | 2024-04-22 10:54 | XMS_ITS | Encounter Summary ---
[place] [address] Care Team Providers Care Tag Stringer Name Role Phone Carroll Fuentes DO Primary Care Provider Encounter Details Date Type Department Care Team (Late st Contact Info) Description 12/16/2018 Orders [place] [address] Henna Cerrato RN SDH (subdural hematoma) Social History Tobacco Use Types Packs/Day Years [...] as of this encounter Visit Diagnoses Diagnosis SDH (subdural hematoma) Subdural hemorrhage documented in this encounter Care Teams Tag Stringer Relationship Specialty Start Date End Date Carroll Fuentes DO [address] [place] [address] PCP - General 09/23/11 10/20/22 documented as of this encounter
--- OUTSIDE RECORDS SUMMARY | 2024-04-22 10:54 | XMS_ITS | Encounter Summary ---
Author Organization [facility] [address] Care Team Providers Care Dish Cloth Inspector Name Role Phone Carroll Fuentes DO Primary Care Provider Encounter Details Date Type Department Care Team (Late st Contact Info) Description 10/12/2019 Abstract [place] [address] Anup Hawkins MD [facility] [place] [address] Social History Tobacco Use Types Packs/Day Years [...] on filedocumented in this encounter Care Teams Dish Cloth Inspector Relationship Specialty Start Date End Date Carroll Fuentes DO [address] [place] [address] PCP - General 09/23/11 10/20/22 documented as of this encounter
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
--- OUTSIDE RECORDS SUMMARY | 2024-04-22 10:54 | XMS_ITS | Encounter Summary ---
Author Organization [facility] Address [facility] [place] [address] Care Team Providers Care Bass Guitar Teacher Name Role Phone Carroll Fuentes DO Primary Care Provider [phone] Encounter Details Date Type Department Care Team (Late st Contact Info) Description 01/10/2019 Ancillary Procedure Radiology Library at [facility] [place] [address] Wilfredo Abdi MD [facility] [place] [address] Social History Tobacco Use Types Packs/Day Years [...] FILM LIBRARY STORAGE ONLY CT HEAD Routine 01/10/2019 12:00 AM EDT documented in this encounter Results * Film Library- Storage Only CT Head (01/10/2019 12:00 AM EDT) Narrative [facility] - 01/13/2019 10:29 AM EDT This exam is auto-finalizing. It's purpose is for storage only. Wilfredo Abdi MD IMG FILM LIBRARY ORD ERABLES [place], [place] documented in this encounter Visit Diagnoses Not on filedocumented in this encounter Care Teams Bass Guitar Teacher Relationship Specialty Start Date End Date Carroll Fuentes DO [address] [place] [address] [address] [place] [address] PCP - General 09/23/11 10/20/22 documented as of this encounter
--- OUTSIDE RECORDS SUMMARY | 2024-04-22 10:54 | XMS_ITS | Encounter Summary ---
Author Organization [facility] Address [facility] [place] [address] Care Team Providers Care Wire Coating Operator Metal Name Role Phone AlfredoCarroll allison Primary Care Provider Encounter Details Date Type Department Care Team (Late st Contact Info) Description 01/13/2019 Telephone [place] [address] Odalis Jacob Social History Tobacco Use Types Packs/Day Years [...] encounter Miscellaneous Notes * Telephone Encounter - Kori Hagen - 01/13/2019 4:28 PM EDT Sumit Michel went to the ER again on 01/11, CT and report in edh to review. Thanks, Kori Carrero faxed CT Head report sent to HIS to be scanned. * Telephone Encounter - Odalis Jacob - 01/13/2019 8:11 AM EDT [facility] faxed documentation informing pt in ER 01/[address] Called [facility] to push CT = pushing now When report completed Litzy in radiology will fax report documented in this encounter Plan of Treatment Not on file documented as of this encounter Visit Diagnoses Not on filedocumented in this encounter Care Teams Wire Coating Operator Metal Relationship Specialty Start Date End Date Carroll Fuentes DO [address] [place] [address] [address] [facility] [address] [place] [address] PCP - General 09/23/11 10/20/22 documented as of this encounter
--- OUTSIDE RECORDS SUMMARY | 2024-04-22 10:54 | XMS_ITS | Encounter Summary ---
Author Organization [facility] [place] [address] Care Team Providers Care Pit Hoist Operator Name Role Phone AlfredoCarroll allison Primary Care Provider [phone] Encounter Details Date Type Department Care Team (Late st Contact Info) Description 12/08/2019 Telephone [place] [address] Michell Roque, LABOR COMMISSIONER [facility] DR [place] [address] Social History Tobacco Use Types Packs/Day Years [...] Telephone Encounter - Michell Roque, RN - 12/08/2019 12:32 PM EDT Called and spoke w/ patient to schedule kidney class. Pt indicated that he has not talked with anyone about a ride to for class. He took my number down again and plans to reach out and then followup. Will await return call. documented in this encounter Plan of Treatment Not on file documented as of this encounter Visit Diagnoses Not on filedocumented in this encounter Care Teams Pit Hoist Operator Relationship Specialty Start Date End Date Carroll Fuentes DO [address] [place] [address] PCP - General 09/23/11 10/20/22 documented as of this encounter
--- OUTSIDE RECORDS SUMMARY | 2024-04-22 10:54 | XMS_ITS | Encounter Summary ---
Author Organization [facility] [place] [address] Care Team Providers Care Bench Chemist Name Role Phone AlfredoCarroll allison Primary Care Provider [phone] Encounter Details Date Type Department Care Team (Late st Contact Info) Description 12/29/2018 9:30 AM EDT Tech [place] [address] [place] End stage chronic kidney disease Social History Tobacco Use Types Packs/Day Years [...] Associated Diagnosis Comments AVF/ESTABLISHED ACCESS EVALUATION Routine 12/29/2018 9:16 AM EDT End stage chronic kidney disease documented in this encounter Results * AVF/Established Access Evaluation (12/29/2018 9:16 AM EDT) VB Text Report Department: Vascular Surgery Lab Patient: [id number] (CHRISTY AMBROSE) CPT: 92630 ICD10: N18.6 Referring Physician: ANNA GARAY ?? Phone: Indications: s/p R brachio-axillar y AVF graft. ICD10 Diagnosis Code: N18.6 Findings: Right ? PSV (cm/s) ??EDV (cm/s) ??Flow (ml/min) ?? Inflow Artery, Site #1 ? 138 ?70 ? Graft, Inflow Anastomosis ?357 ? 251 ? Graft, ??Proximal ? 299 ? 183 ?935 ?? Graft, Mid ? 147 ? 102 ?951 ?? Graft, Distal ?122 ?83 ?912 ?? Graft, Outflow Anastomosis ? 110 ?83 ? Interpretation: Right- Widely patent brachio-axillar y AVF graft with no evidence of stenosis. Volume flows range from 9/12-951 ml/min. Comparison: ??No previous study in our vascular lab database for comparison. Electronically Signed by: LOUIS LANDIS MD on 2019-01-05 08:45:54 AM [facility] VB Text Report End of Report [facility] 12/29/2018 9:16 AM EDT Anna Garay MD VASCULAR ORDERABLE S [facility] documented in this encounter Visit Diagnoses Diagnosis End stage chronic kidney disease documented in this encounter Care Teams Bench Chemist Relationship Specialty Start Date End Date Carroll Fuentes DO [address] [place] [address] PCP - General 09/23/11 10/20/22 documented as of this encounter
--- OUTSIDE RECORDS SUMMARY | 2024-04-22 10:54 | XMS_ITS | Encounter Summary ---
Author Organization [facility] [place] [address] Care Team Providers Care Vest Finisher Name Role Phone AlfredoCarroll allison Primary Care Provider [phone] Encounter Details Date Type Department Care Team (Late st Contact Info) Description 12/18/2019 Telephone [place] [address] Michell Roque, MANAGER WOUND [facility]ARE [facility] [place] [address] Social History Tobacco Use Types Packs/Day Years [...] Telephone Encounter - Michell Roque, RN - 12/18/2019 10:59 AM EDT Spoke w/ Adama on 2 occasions last week to discuss his referral. Pt seemed a bit confusion and repetitive. This morning, I spoke w/ Lucas, his brother, who confirmed he has a bit of confusion. He has had a few recent falls. Continues on dialysis which causes him to have to be isolated in his assistedliving. He also indicated that he has struggled to maintain adequate BPs and indeed was in the ED this morning for exactly that. I then spoke with Dir Esthela of Nursing, at [facility] in [place], [place]. She was surprised that we would even consider him for another transplant. She indicated that he is cognitively limited. He needs prompting with his ADLs. They do all his medications. There is no ability for them to help out with his I & Os. I discussed this with Dr. Taylor and it seems that he would not be a suitable kidney transplant candidate. Will discuss further at committee this week. documented in this encounter Plan of Treatment Not on file documented as of this encounter Visit Diagnoses Not on filedocumented in this encounter Care Teams Vest Finisher Relationship Specialty Start Date End Date Carroll Fuentes DO [address] [place] [address] [address] [facility] 1 [place] [address] PCP - General 09/23/11 10/20/22 documented as of this encounter
--- OUTSIDE RECORDS SUMMARY | 2024-04-22 10:54 | XMS_ITS | Encounter Summary ---
Author Organization [facility] Address [facility] [place] [address] Care Team Providers Care Pharmaceutical Specialty Representative Name Role Phone AlfredoCarroll allison Primary Care Provider [phone] Reason for Referral * Consultation (Routine) - Closed Specialty Diagnoses / Procedures Referred By Shashi ko Referred To Contact Transplant Diagnoses ESRD (end stage renal disease) Procedures TXP Trever Brizuela MD [facility] [place] [address] nAup Hawkins MD [facility] [place] [address] Referral ID Status Reason Start Date Expiration Date V isits Requested Visits Authorized [id number] Closed Consult, Test & Treat 11/07/2019 11/06/2020 1 1 Encounter Details Date Type Department Care Team (Late st Contact Info) Description 11/07/2019 Orders Only [place] [address] Trever Boyd MD [facility] [place] [address] ESRD (end stage renal disease) Social History [...] Scheduled Referrals Name Type Priority Associated Diagnoses Order Schedule Referral to Transplant Services Outpatient Referral Routine ESRD (end stage renal disease) Ordered: 11/07/2019 documented as of this encounter Visit Diagnoses Diagnosis ESRD (end stage renal disease) End stage renal disease documented in this encounter Care Teams Pharmaceutical Specialty Representative Relationship Specialty Start Date End Date Carroll Fuentes DO [address] [place] [address] PCP - General 09/23/11 10/20/22 documented as of this encounter
--- OUTSIDE RECORDS SUMMARY | 2024-04-22 10:54 | XMS_ITS | Encounter Summary ---
Author Organization [facility] Address [facility] [place] [address] Care Team Providers Care Rail Washer Name Role Phone Alfredo, Carroll MIX Primary Care Provider [phone] Encounter Details Date Type Department Care Team (Late st Contact Info) Description 12/23/2020 Telephone [place] [address] Tessa Flores MSW [facility] [place] [address] Social History Tobacco Use Types Packs/Day Years [...] Progress Notes * Tessa Flores MSW - 12/23/2020 9:15 AM EDT Worker received a call from Padmini from [employer] last week asking about Adama Ram as they recently got a referral for a kidney transplant for him from his dialysis unit. Worker informed Padmini that Adama was not on the wait list at [facility] for a transplant and would not be considered a candidate in the future due to him living in assistive living, his physical and cognitive declines. Padmini said she would pass this information along. Today, worker received a call from Curtis from [employer] asking about Adama's compliance. Worker left a message saying the same thing as above. Worker remains available should any other needs arise. documented in this encounter Plan of Treatment Not on file documented as of this encounter Visit Diagnoses Not on filedocumented in this encounter Care Teams Rail Washer Relationship Specialty Start Date End Date Carroll Fuentes DO [address] [place] [address] PCP - General 09/23/11 10/20/22 documented as of this encounter
--- OUTSIDE RECORDS SUMMARY | 2024-04-22 10:54 | XMS_ITS | Encounter Summary ---
Author Organization [facility] Address [facility] [place] [address] Care Team Providers Care Automotive Title Clerk Name Role Phone AlfredoCarroll allison DO Primary Care Provider [phone] Encounter Details Date Type Department Care Team (Late st Contact Info) Description 03/18/2019 Ancillary Procedure Radiology Library at [facility] [place] [address] Wilfredo Abdi MD [facility] [place] [address] Social History Tobacco Use Types Packs/Day Years [...] FILM LIBRARY STORAGE ONLY CT HEAD Routine 03/18/2019 12:00 AM EDT documented in this encounter Results * Film Library- Storage Only CT Head (03/18/2019 12:00 AM EDT) Narrative [facility] - 03/19/2019 10:36 PM EDT This exam is auto-finalizing. It's purpose is for storage only. Wilfredo Abdi MD IMG FILM LIBRARY ORD ERABLES [place], [place] documented in this encounter Visit Diagnoses Not on filedocumented in this encounter Care Teams Automotive Title Clerk Relationship Specialty Start Date End Date Carroll Fuentes DO [address] [place] [address] [address] [place] [address] PCP - General 09/23/11 10/20/22 documented as of this encounter
--- OUTSIDE RECORDS SUMMARY | 2024-04-22 10:54 | XMS_ITS | Encounter Summary ---
[place] [address] Care Team Providers Care Core Manager Name Role Phone Alfredo, Carroll MIX Primary Care Provider [phone] Reason for Visit * Auth/Cert Specialty Diagnoses / Procedures Referred By Shashi ko Referred To Contact Diagnoses ESRD on dialysis Procedures PRO CREAT AV FISTULA, NON-AUTOGENOUS GRAFT PLACEMENT, AV HEMODIALYSIS GRAFT, SYNTHETIC GRAFT, UPPER EXTREMITY (WRVU 12.03) Referral ID Status Reason Start Date Expiration Date Visits Re quested Visits Authorized [id number] 1 1 Encounter Details Date Type Department Care Team (Latest Contact Info) Description 12/13/2018 8:20 AM EDT Laboratory Appointment Lab [address] [place] [id number] CKD (chronic kidney disease) stage 4, GFR 15-29 ml/min; Acute renal failure, unspecified acute renal failure type Social History Tobacco Use Types Packs/Day Years [...] Procedure Name Priority Date/Time Associated Diagnosis Comments POTASSIUM STAT 12/13/2018 8:29 AM EDT CKD (chronic kidney disease) stage 4, GFR 15-29 ml/min Acute renal failure, unspecified acute renal failure type documented in this encounter Results * (ABNORMAL) Potassium (12/13/2018 8:29 AM EDT) Potassium 5.8(H) 3.5 - 5.0 mmol/L [facility] Comment: Please note: ??Patients with WBC >100,000 may have falsely elevated Potassium levels. ??For accurate Potassium quantification in these patients send serum separator tube (gold top) for subsequent determinations. ??Contact the Clinical Chemistry Laboratory if there are any questions. Blood specimen (specimen) 12/13/2018 8:29 AM EDT 12/13/2018 8:34 AM EDT Narrative Resulting Agency Comment Spec In Lab Kurt Mullins MD CHEMISTRY ORDERABLES [facility] [place] [address] documented in this encounter Visit Diagnoses Diagnosis CKD (chronic kidney disease) stage 4, GFR 15-29 ml/min Chronic kidney disease, Stage IV (severe) Acute renal failure, unspecified acute renal failure type documented in this encounter Care Teams Core Manager Relationship Specialty Start Date End Date Carroll Fuentes DO [address] [place] [address] PCP - General 09/23/11 10/20/22 documented as of this encounter
--- OUTSIDE RECORDS SUMMARY | 2024-04-22 10:54 | XMS_ITS | Encounter Summary ---
Author Organization [facility] [place] [address] Care Team Providers Care Nursery Teacher Name Role Phone AlfredoCarroll allison Primary Care Provider [phone] Encounter Details Date Type Department Care Team (Late st Contact Info) Description 12/05/2019 Telephone [place] [address] Michell Roque APRN [facility] [place] [address] Social History Tobacco Use Types Packs/Day Years [...] Miscellaneous Notes * Telephone Encounter - Michell Roque RN - 12/05/2019 9:39 AM EDT Called and left message to schedule upcoming kidney class. Will await return call. documented in this encounter Plan of Treatment Not on file documented as of this encounter Visit Diagnoses Not on filedocumented in this encounter Care Teams Nursery Teacher Relationship Specialty Start Date End Date Carroll Fuentes DO [address] [place] [address] [address] [facility] [address] [place] [address] PCP - General 09/23/11 10/20/22 documented as of this encounter
--- OUTSIDE RECORDS SUMMARY | 2024-04-22 10:54 | XMS_ITS | Encounter Summary ---
Author Organization [facility] Address [facility] [place] [address] Care Team Providers Care Tent Finisher Name Role Phone AlfredoCarroll allison Primary Care Provider [phone] Encounter Details Date Type Department Care Team (Late st Contact Info) Description 12/16/2018 Notes Only [place] [address] Nilda Minaya, MANAGER RESTAURANT [facility] [place] [place] [address] Social History Tobacco Use Types Packs/Day Years [...] as of this encounter Progress Notes * Nilda Minaya, RN - 12/16/2018 8:05 AM EDT Pt's discharge summary incorrectly states that pt's new AVG can be used immediately for dialysis. In fact, the graft will be evaluated at pt's 2 week hospital f/u and clearance for use will be given at that time. Pt's residence; [facility] home dialysis [facility]; [facility] are both aware. documented in this encounter Plan of Treatment Not on file documented as of this encounter Visit Diagnoses Not on filedocumented in this encounter Care Teams Tent Finisher Relationship Specialty Start Date End Date Carroll Fuentes DO [address] [place] [address] PCP - General 09/23/11 10/20/22 documented as of this encounter
--- OUTSIDE RECORDS SUMMARY | 2024-04-22 10:54 | XMS_ITS | Encounter Summary ---
Author Organization [facility] Address [facility] [place] [address] Care Team Providers Care Lunchroom Attendant Name Role Phone AlfredoCarroll allison Primary Care Provider [phone] Reason for Visit * Reason Comments Arteriovenous Fistula s/p right brachio axillary graft Encounter Details Date Type Department Care Team (Late st Contact Info) Description 12/29/2018 10:15 AM EDT Office [place] [phone] Anand Mallory MD [facility] [place] [address] ESRD (end stage renal disease) Social History [...] Sign Reading Time Taken Comments Blood Pressure 85/71 12/29/2018 9:54 AM EDT Pulse 80 12/29/2018 9:54 AM EDT Temperature - - Respiratory Rate 18 12/29/2018 9:54 AM EDT Oxygen Saturation - - Inhaled Oxygen Concentration - - Weight 90.7 kg (200 lb) 12/29/2018 9:54 AM EDT Height 177.8 cm (5' 10) 12/29/2018 9:54 AM EDT Body Mass Index 28.7 12/29/2018 9:54 AM EDT documented in this encounter Progress Notes * Anand Mallory MD - 12/29/2018 10:15 AM EDT This patient returned to the vascular clinic today for a follow up visit for end-stage renal disease status post a right arm brachial axillary graft placed by Dr. William Garay about 2 weeks ago. Hepresents today for a first wound check. He denies any pain in the arm, forearm or hand. He still has his original surgical dressings over the incision sites. PMHx: Past Medical History: Diagnosis Date ??? BP (high blood pressure) ??? DVT (deep venous thrombosis) ??? Gout ??? Hypertension ??? Kidney problem ??? Pneumonia ??? TBI (traumatic brain injury) 1980 SxHx: Past Surgical History: Procedure Laterality Date ??? CREATED BY INTERFACE Entered not Verified Procedure Date: 09/19/2010 ??? IR DIALYSIS ACCESS - TUNNELED LINE 07/30/2018 IR Dialysis Access - Tunneled Line 07/30/2018 Walt Lin MD [facility] RAD ??? IR DIALYSIS ACCESS - TUNNELED LINE 08/30/2018 IR Dialysis Access - Tunneled Line 08/30/2018 Erwin Simon APRN [facility] RAD ??? KIDNEY TRANSPLANT KIDNEY TRANSPLANT / RECIPIENT/LT Procedure Date: 11/26/2002 ??? PRO CREAT AV FISTULA, NON-AUTOGENOUS GRAFT Right 12/13/2018 PLACEMENT, AV HEMODIALYSIS GRAFT, SYNTHETIC GRAFT, UPPER EXTREMITY (WRVU 12.03) performed by Mayr Garay MD at [facility] MAIN OR ? ? PRO DEBRIDEMENT SUBCUTANEOUS TISSUE 20 SQCM/< Left 02/20/2016 DEBRIDEMENT SKIN AND SUBCU, HEAD/NECK performed by Miguel Angel Moreno MD at [facility] MAIN OR ??? PRO DECOMPRESS FOREARM, BRACH ART EXPLOR Left 04/06/2018 FASCIOTOMY, FOREARM, WITH BRACHIAL ARTERY EXPLORATION (WRVU 8.41) performed by Lida Peter, [facility] MAIN OR ??? PRO DIRECT REPAIR RUPTURED ANEURYSM, AXILLO-BRACHIAL ARM INCIS Left 04/06/2018 @REPAIR, RUPTURED AXILLARY OR BRACHIAL ARTERY ANEURYSM BY ARM INCISION (WRVU *) performed by Lida Peter MD at [facility] MAIN OR ??? PRO EXC PAROTD, TOTAL, UNILAT RAD NECK Left 02/05/2016 @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, TOTAL, WITH UNILATERAL RADICAL NECK DISSECTION performed by Miguel Angel Moreno MD at [facility] MAIN OR ??? PRO EXC SKIN [...] 25.06) performed by Jax Mills MD at [facility] MAIN OR ??? PRO LIGATN ANGIOACCESS AV FISTULA Left 04/19/2018 LIGATION OR BANDING OF HEMODIALYSIS FISTULA OR GRAFT UPPER EXTREMITY (WRVU 6.25) performed by Odalis Elias MD at [facility] MAIN OR ??? PRO NEGATIVE PRESSURE WOUND THERAPY, LESS THAN OR EQUAL TO 50 SQCM Left 04/19/2018 DRESSING CHANGE (VAC ASSISTED) UP TO 50SQ.CM (WRVU 0.55) performed by Odalis Elias MD [facility] MAIN OR ??? PRO REBL VES GRAFT, UP EXTREM Left 04/06/2018 REPAIR BLOOD VESSEL WITH GRAFT OTHER THAN VEIN, UPPER EXTREMITY (WRVU 15.83) performed by Lida Peter MD at [facility] MAIN OR ??? PRO RELIEVE PRESSURE ON NERVE(S) Left 04/06/2018 (MSURG) CARPAL TUNNEL (WRVU 4.82) performed by Silviano Sparks MD at [facility] OR ??? PRO REPAIR INTERMEDIATE S/A/T/E 2.6-7.5 CM 04/19/2012 REPAIR INTERMEDIATE WOUND, (NO HANDS OR FEET) 2.6 TO 7.5CM, UPPER EXTREMITY performed by SABRINA SANCHEZ at [facility] MAIN OR ? ? PRO REPAIR INTERMEDIATE S/A/T/E > 30.0 CM Left 04/14/2018 REPAIR INTERMEDIATE WOUND, (NO HANDS OR FEET) >30.0CM, UPPER EXTREMITY (WRVU 5) performed by Yimi Easton MD at [facility] MAIN OR ??? PRO REVISE MEDIAN N/CARPAL TUNNEL SURG Left 04/06/2018 MEDIAN NERVE DECOMPRESSION (CARPAL TUNNEL RELEASE) (WRVU 4.97) performed by Lida Peter MD [facility] MAIN OR ? ? PRO SPLIT GRFT TRUNK, ARM, LEG <100SQCM Left 04/26/2018 SPLIT THICK SKIN GRAFT,100 SQ CM OR LESS, ARMS (WRVU 9.9) performed by Silviano Sparks MD at [facility] MAIN OR ? ? PRO SPLIT GRFT, HEAD, FAC, HAND, FEET <100SQCM N/A 02/20/2016 SPLIT THICKNESS SKIN SPLIT GRAFT,100SQ CM OR LESS, NECK performed by Miguel Angel Moreno MD at [facility] MAIN OR ??? PRO SPLIT GRFT, TRUNK, ARM, LEG EA 100SQCM N/A 04/26/2018 EA.ADDITIONAL 100SQ.CM STSG (WRVU 1.72) performed by Silviano Sparks MD at [facility] MAIN OR ??? PRO UPPER GI ENDOSCOPY, BIOPSY N/A 05/13/2017 EGD WITH BIOPSY (WRVU 2.49) performed by Aditya Barrera MD at [facility] ENDOSCOPY ??? PRO VASCULAR SURGERY PROCEDURE UNLIST Left 11/20/2015 LIGATION\REPAIR AV FISTULA performed by Camilo Ireland MD at [facility] MAIN OR ??? PRO VASCULAR SURGERY PROCEDURE UNLIST Left 11/20/2015 EXCISION VEIN FROM HAND performed by Camilo Ireland MD at [facility] MAIN OR ??? US RENAL TRANSPLANT BIOPSY 12/31/2010 ??? US RENAL TRANSPLANT RIGHT Right 06/04/2018 US Renal Transplant Right 06/04/[address] [facility] RAD ULTRASOUND Social Hx: Social History Tobacco Use ??? Smoking status: Former Smoker Packs/day: 0.25 Years: 1.50 Pack years: 0.37 Types: Cigarettes Last attempt to quit: 12/03/2000 Years since quittin.0 ??? Smokeless tobacco: Former User Quit date: 04/14/2001 Substance Use Topics ??? Alcohol use: No Medications: Medications 12/29/18 0955 Medication Sig Taking? aspirin 81 mg Tablet, Delayed Release (E.C.) Take 1 tablet by mouth daily. Yes dilTIAZem (CARTIA XT) 120 mg Capsule, Sust. Release 24 hr Take 1 capsule by mouth daily. Yes multivitamin Capsule Take 1 capsule by mouth daily. Yes allopurinol (ZYLOPRIM) 100 mg Tablet Take 1 tablet by mouth daily. Yes acetaminophen (TYLENOL) 500 mg Tablet Take 2 tablets by mouth every 6 hours. Yes amLODIPine (NORVASC) 10 mg Tablet Take 1 tablet by mouth daily. Yes levETIRAcetam (KEPPRA) 500 mg Tablet Take 1 tablet by mouth 2 times daily. Yes losartan (COZAAR) 100 mg Tablet Take 1 tablet by mouth every morning. Yes pantoprazole (PROTONIX) 20 mg Tablet, Delayed Release (E.C.) Take 1 tablet by mouth 2 times daily. Yes calcium carbonate (TUMS) 200 mg calcium (500 mg) Tablet, Chewable Take 2 tablets by mouth 3 times daily (with meals). Yes hydrALAZINE (APRESOLINE) 100 mg Tablet Take 1 tablet by mouth 3 times daily. Yes tacrolimus (PROGRAF) 1 mg Capsule Take 1 capsule by mouth 2 times daily. Yes carvedilol (COREG) 12.5 mg Tablet Take 1 tablet by mouth 2 times daily (with meals). Yes levothyroxine (SYNTHROID) 100 mcg Tablet Take 1 tablet by mouth daily. Yes Allergies: Allergies Allergen Reactions ??? Benazepril Hcl [...] - Denies Muscoloskeletal (extremity pain, weakness) - denies Skin (ulcers, rashes) - denies All other ROS negative Physical Exam: Vitals: Most Recent Vitals: 12/29/18 0954 BP: (!) 85/71 Pulse: 80 Resp: 18 PainSc: 0 - No pain Gen: No acute distress. HEENT: Normocephalic, atraumatic. PERR, EOMs intact bilaterally. No scleral icterus. Neck: Supple, no JVD. Heart: Regular rate and rhythm. (+) S1/S2. No snaps, clicks, rubs, or murmurs. Lungs: Regular respiratory rate with no increased work of breathing. Clear to auscultation bilaterally. Abd: Soft, nontender, not distended. Audible bowel sounds. No bruits or pulsatile mass on exam. Extremities: right arm incisions healing well. Palpable thrill in venous outflow at axilla Vascular Exam: R L Carotid 2/2 bruit (-) 2/2 bruit (-) Radial 2/2 2/2 Femoral 2/2 2/2 Popliteal 2/2 2/2 DP 2/2 2/2 PT 2/2 2/2 Psych: AAOx3 Labs/Studies: none Impression: I removed Mr. Ram's original surgical dressings and the incisions underneath are nice and clean and healing well. He has a palpable thrill in the venous outflow of the graft. He also has a palpable radial pulse at the wrist. He denies any hand or finger pain. I think that things are progressing nicely. I would like to see him back in 2 more weeks, at which time we will obtain an AV graft duplex to measure flow volumes, as well as remove his sutures. documented in this encounter Plan of Treatment Not on file documented as of this encounter Visit Diagnoses Diagnosis ESRD (end stage renal disease) End stage renal disease documented in this encounter Care Teams Lunchroom Attendant Relationship Specialty Start Date End Date Carroll Fuentes DO [address] [place] [address] PCP - General 09/23/11 10/20/22 documented as of this encounter
--- OUTSIDE RECORDS SUMMARY | 2024-04-22 10:54 | XMS_ITS | Encounter Summary ---
Author Organization [facility] Address [facility] [place] [address] Care Team Providers Care Black Oxide Coating Equipment Tender Name Role Phone Carroll Fuentes DO Primary Care Provider [phone] Encounter Details Date Type Department Care Team (Late st Contact Info) Description 01/15/2020 Telephone [place] [address] Tessa Flores MSW [facility] [place] [address] Social History Tobacco Use Types Packs/Day Years [...] Progress Notes * Tessa Flores MSW - 01/15/2020 11:57 AM EDT Worker spoke to Adama Zavala's brother at length today regarding the letter saying that Adama was not a candidate for kidney transplant. Worker explained what caring for someone post transplant entails.Worker informed Lucas that per the assisted living facility they do not have the staff to be able tomonitor Adama's intakes and outputs, etc. Worker explained how Adama would need to come to the clinictwice a week after his transplant, drink a certain amount of fluids, there are food restrictions, med changes, etc. Worker explained that if he did not have an aftercare plan in place then a transplant could not happen. Adama said he did not realize how detailed this plan of care was, saying he doesnot remember it being this rigid when Adama had his transplant in 2002. Adama said that he could contact the facility that Adama is at in [place] to double check to see if they could accommodate his needs if they had another staff member. Adama said that he would also contact [place] Medicaid to see if they would pay for an extra staff member. Adama said that he could also research whether or not Adama could go to another facility while he recuperates and then transfers back to [place]. Worker informed Adama that there would need to be a plan in place before Adama got a call for a kidney and that the team would not agree for him to move forward based on a plan that may be in place upon discharge. Worker discussed how having a living donor would give an extract date to put a plan in place. Discussed how surgery might rule Adama out before he went any further. Talked about how if the team said yes then he would need to pass all his required tests. Talked about being active versus inactive on the list. Lucas said that he thought that surgically it would probably be easier as it is a second kidney. Talked about how there could be calcifications in Adama's abdomen and or scar tissue and that could affect a surgery. Also discussed how co-morbidities can play a role in whether or not someone is a candidate or if they affect their recovery. Lucas acknowledged that there were a lot of barriers in order for the team to reconsider Adama as a candidate and said that he did not know if Adama would survive this process. At the same time, he saidhe would like to be able to get Adama off of dialysis as Adama would love that. Lucas seems to be having trouble acknowledging that chances are Adama will not be approved for another transplant due to a multitude of reasons. Lucas knows that despite his best efforts the team's answer may still be no. documented in this encounter Plan of Treatment Not on file documented as of this encounter Visit Diagnoses Not on filedocumented in this encounter Care Teams Black Oxide Coating Equipment Tender Relationship Specialty Start Date End Date Carroll Fuentes DO [address] [place] [address] PCP - General 09/23/11 10/20/22 documented as of this encounter
--- OUTSIDE RECORDS SUMMARY | 2024-04-22 10:54 | XMS_ITS | Encounter Summary ---
Author Organization [facility] [place] [address] Care Team Providers Care Roll Plugger Name Role Phone AlfredoCarroll allison Primary Care Provider [phone] Encounter Details Date Type Department Care Team (Late st Contact Info) Description 11/16/2019 Telephone [place] [address] Michell Roque, CHINESE LANGUAGE PROFESSOR [facility] [place] [address] Social History Tobacco Use Types Packs/Day Years [...] Telephone Encounter - Michell Roque RN - 11/16/2019 1:34 PM EDT Called to gather referral information and schedule kidney class. Left message. Await return call. documented in this encounter Plan of Treatment Not on file documented as of this encounter Visit Diagnoses Not on filedocumented in this encounter Care Teams Roll Plugger Relationship Specialty Start Date End Date Carroll Fuentes DO [address] [facility] [facility] [place] [address] PCP - General 09/23/11 10/20/22 documented as of this encounter
--- OUTSIDE RECORDS SUMMARY | 2024-04-22 10:54 | XMS_ITS | Encounter Summary ---
Author Organization [facility] Address [facility] [place] [address] Care Team Providers Care Record Filing Clerk Name Role Phone Carroll Fuentes DO Primary Care Provider Encounter Details Date Type Department Care Team (Late st Contact Info) Description 12/18/2018 Ancillary Procedure Radiology Library at [facility] [place]ONY [place] [address] Carroll Fuentes DO [address] [place], [place] [address] Social History Tobacco Use Types Packs/Day Years [...] FILM LIBRARY STORAGE ONLY DX CHEST Routine 12/18/2018 12:00 AM EDT documented in this encounter Results * Film Library- Storage Only DX Chest (12/18/2018 12:00 AM EDT) Narrative [facility] - 12/19/2018 11:30 AM EDT This exam is auto-finalizing. It's purpose is for storage only. Carroll Fuentes DO [facility] FILM LIBRARY ORD ERABLES [place], [place] documented in this encounter Visit Diagnoses Not on filedocumented in this encounter Care Teams Record Filing Clerk Relationship Specialty Start Date End Date Carroll Fuentes DO [address] [place] [address] [address] [place] [address] PCP - General 09/23/11 10/20/22 documented as of this encounter
--- OUTSIDE RECORDS SUMMARY | 2024-04-22 10:54 | XMS_ITS | Encounter Summary ---
Author Organization [facility] Address [facility] [place] [address] Care Team Providers Care Electrical Test Engineer Name Role Phone AlfredoCarroll allison Primary Care Provider [phone] Encounter Details Date Type Department Care Team (Late st Contact Info) Description 12/18/2018 [place] [address] Damián Richter MD [facility] [place] [address] Social History Tobacco Use Types Packs/Day Years [...] encounter Miscellaneous Notes * Telephone Encounter - Damián Richter MD - 12/18/2018 12:00 PM EDT Called by staff at [facility] regarding this patient. He had a vascular procedure last week andreceived heparin. He is now reported to have altered mental status. Details from facility staff arelimited. I cannot adequately assess and give sound recommendations over the phone with limited information. I advised that the patient be taken to the closed ED for further evaluation, and the providers there can call for further consultation. Damián Richter MD 12:02 PM 12/18/2018 documented in this encounter Plan of Treatment Not on file documented as of this encounter Visit Diagnoses Not on filedocumented in this encounter Care Teams Electrical Test Engineer Relationship Specialty Start Date End Date Carroll Fuentes DO [address] [place] [address] [address] [facility] [place] [address] PCP - General 09/23/11 10/20/22 documented as of this encounter
--- OUTSIDE RECORDS SUMMARY | 2024-04-22 10:54 | XMS_ITS | Encounter Summary ---
Author Organization [facility] Address [facility] [place] [address] Care Team Providers Care Director Electrical Engineering Name Role Phone Carroll Fuentes DO Primary Care Provider Encounter Details Date Type Department Care Team (Late st Contact Info) Description 12/18/2018 12:05 AM EDT Ancillary Procedure Radiology Library at [facility] [place] [address] Carroll Fuentes DO [address] [place], [place] [address] Social History Tobacco Use Types Packs/Day Years [...] FILM LIBRARY STORAGE ONLY CT HEAD Routine 12/18/2018 12:05 AM EDT documented in this encounter Results * Film Library- Storage Only CT Head (12/18/2018 12:05 AM EDT) Narrative [facility] - 12/19/2018 11:32 AM EDT This exam is auto-finalizing. It's purpose is for storage only. Carroll Fuentes DO IMG FILM LIBRARY ORD ERABLES MIGUEL ÁNGEL [place], [place] documented in this encounter Visit Diagnoses Not on filedocumented in this encounter Care Teams Director Electrical Engineering Relationship Specialty Start Date End Date Carroll Fuentes DO [address] [place] [address] PCP - General 09/23/11 10/20/22 documented as of this encounter
--- OUTSIDE RECORDS SUMMARY | 2024-04-22 10:54 | XMS_ITS | Encounter Summary ---
Author Organization [facility] [place] [address] Care Team Providers Care Title Assistant Name Role Phone AlfredoCarroll allison Primary Care Provider [phone] Encounter Details Date Type Department Care Team (Late st Contact Info) Description 11/22/2019 Telephone [place] [address] Michell Roque APRN [facility] [place] [address] Social History Tobacco Use Types Packs/Day Years [...] Telephone Encounter - Michell Roque RN - 11/22/2019 11:58 AM EDT Called to begin the referral process for kidney transplant. Left message for pt to call back. documented in this encounter Plan of Treatment Not on file documented as of this encounter Visit Diagnoses Not on filedocumented in this encounter Care Teams Title Assistant Relationship Specialty Start Date End Date Carroll Fuentes DO [address] [facility] [address] [place] [address] PCP - General 09/23/11 10/20/22 documented as of this encounter
--- OUTSIDE RECORDS SUMMARY | 2024-04-22 10:54 | XMS_ITS | Encounter Summary ---
Author Organization [facility] [place] [address] Care Team Providers Care Flight Tower Dispatcher Name Role Phone AlfredoCarroll geiger Primary Care Provider [phone] Reason for Referral * Diagnostic Test (Routine) - Closed Specialty Diagnoses / Procedures Referred By Shashi ko Referred To Contact Radiology Diagnoses ESRD (end stage renal disease) Procedures IR Dialysis Access - AV Fistula Evaluations Giovani Molina MBBS [facility] [place] [address] [place] [address] Referral ID Status Reason Start Date Expiration Date V isits Requested Visits Authorized [id number] Closed Specialty Service Requested 11/29/2019 05/31/2021 1 1 Encounter Details Date Type Department Care Team (Late st Contact Info) Description 11/29/2019 Orders Only [place]ph[place] [address] Giovani Molina MBBS [facility] [place] [address] ESRD (end stage renal disease) [...] venous angioplasty. ?? Indication for Procedure: Per Adama Ojeda??is a 59 y.o.??male??with ESRD on HD [...] and innominate veins. ??The central facing 6 Bulgarian sheath was exchanged for an 8 Bulgarian sheath. ??A 16 mm angioplasty balloon catheter was placed and used to dilate the subclavian and innominate stenosis. ??Post RECRUITING CONSULTANT venography showed persistent stenosis. ??An 18 mm angioplasty balloon catheter was then placed and also used to dilate the stenosis. ??Post RECRUITING CONSULTANT venography showed mild residual stenosis. ? 8 Bulgarian sheath was removed after placement of a pursestring suture, to be released later in Recovery. ??The 6 Bulgarian sheath was removed and hemostasis obtained with manual compression and a tip stop. ?? Medications: Fentanyl 175 mcg IV, Versed 3.5 mg IV, 1% Lidocaine <10ccs subcutaneous. ?? Est Blood Loss: <5cc. ?? Complications: ??No immediate. ?? Impression: ?? 1. ??Right arm brachio-axillary AV graft was thrombosed. ?? 2. ??Mechanical declot, 8mm RECRUITING CONSULTANT of venous anastomosis, 6mm RECRUITING CONSULTANT of arterial anastomosis. ?? 3. ??Flow from anastomosis centrally, axilla to subclavian vein, via three channels ?? 4. 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 ?? Resident/Fellow: ??None. ?? Attending: I, Dr. Velez performed this procedure. ??I was present during the intraservice time as documented by the IR Nurse.? Post 18mm RECRUITING CONSULTANT ? Trever Boyd MD IMG IR ORDERABLES documented in this encounter Visit Diagnoses Diagnosis ESRD (end stage renal disease) End stage renal disease ESRD (end stage renal disease) End stage renal disease documented in this encounter Care Teams Flight Tower Dispatcher Relationship Specialty Start Date End Date Carroll Fuentes DO [address] [place] [address] PCP - General 09/23/11 10/20/22 documented as of this encounter
--- OUTSIDE RECORDS SUMMARY | 2024-04-22 10:54 | XMS_ITS | Encounter Summary ---
Author Organization [facility] [address] Care Team Providers Care Security Checker Name Role Phone AlfredoCarroll allison Primary Care Provider [phone] Encounter Details Date Type Department Care Team (Late st Contact Info) Description 11/30/2018 Telephone [place] [id number] Tessa Flores MSW [facility] [place] [address] Social History Tobacco Use Types Packs/Day Years [...] Progress Notes * Tessa Flores MSW - 11/30/2018 3:27 PM EDT Worker left a message for patient's PCP and faxed the paperwork that needs to be completed for Lucas to be Adama's rep payee. documented in this encounter Plan of Treatment Not on file documented as of this encounter Visit Diagnoses Not on filedocumented in this encounter Care Teams Security Checker Relationship Specialty Start Date End Date Carroll Fuentes DO [address] [place] [address] PCP - General 09/23/11 10/20/22 documented as of this encounter
--- OUTSIDE RECORDS SUMMARY | 2024-04-22 10:54 | XMS_ITS | Encounter Summary ---
Author Organization [facility] [place] [address] Care Team Providers Care Tire Specialist Name Role Phone AlfredoCarroll geiger Primary Care Provider Reason for Visit * Auth/Cert Specialty Diagnoses / Procedures Referred By Shashi ko Referred To Contact Diagnoses ESRD on dialysis Procedures PRO CREAT AV FISTULA, NON-AUTOGENOUS GRAFT PLACEMENT, AV HEMODIALYSIS GRAFT, SYNTHETIC GRAFT, UPPER EXTREMITY (WRVU 12.03) Referral ID Status Reason Start Date Expiration Date Visits Re quested Visits Authorized [id number] 1 1 Encounter Details Date Type Department Care Team (Late st Contact Info) Description 12/13/2018 10:00 AM EDT - 12/13/2018 1:17 PM EDT Surgery [place] [id number] Anna Shah MD [address] [place] [id number] PLACEMENT, AV HEMODIALYSIS GRAFT, SYNTHETIC GRAFT, UPPER [...] Sign Reading Time Taken Comments Blood Pressure 110/66 12/13/2018 1:00 PM EDT Pulse 48 12/13/2018 1:00 PM EDT Temperature 36.3 ??C (97.3 ??F) 12/13/2018 1:00 PM ED T Respiratory Rate 11 12/13/2018 1:00 PM EDT Oxygen Saturation 92% 12/13/2018 1:00 PM EDT Inhaled Oxygen Concentration - - Weight - - Height - - Body Mass Index - - documented in this encounter Discharge Summaries * Thelma Solitario MD - 12/14/2018 3:21 PM EDT Inpatient - Discharge Summary Patient Name: Christy Ambrose Patient Age: 58 y.o. Birthdate: 1960 Admit date: 12/13/2018 Discharge date and time: 12/14/2018 Attending Physician: Anna Shah MD Discharge Diagnoses (Hospital Problems) and Secondary Diagnoses (Chronic Problems): Active Hospital Problems Diagnosis ??? End stage chronic kidney disease Resolved Hospital Problems No resolved problems to [...] GFR 15-29 ml/min ??? 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 [facility] current use of immunosuppressive drug ??? H/O [...] Hypertension ??? Left leg DVT ??? Epilepsy Operations/Major Procedures: 12/13/2018: Right brachioaxillary graft with 7 mm - 4 mm tapered Accuseal (12/13/18) History of Presentation: 58 y.o. male with a history of ESRD now on HD MWF. He underwent transplantation in November of 2002, but due to recurrent IgA nephropathy and prograft toxicity he is now back on HD as of July 2018. He is right hand dominant. He has a history of a LUE RC AVF and BC AVF. In March of 2018 he sustained a massive hemorrhage from the BC AVF and subsequent PEA arrest. He was resuscitated and the BC AVF was found to be infected and was debrided. His RC AVF was also ligated due to dilation and conc nicki for infection. His left arm was left open and subsequently skin grafted. He has recovered from this procedure, but because he is now back on HD, he presents for placement of durable HD access. He is currently dialyzed via a right IJ TDC. He has no poor venous conduit in either arm Hospital Course: In surgery, palpable radial pulse and thrill in AVG on completion. Pt admitted forpostop monitoring. Pt's recovery went well with good PO intake, minimal pain and ambulation with minimal assist. Pt's right U/E incision remains c/d/i with dressing in place. He is medically cleared for d/c to assistedliving facility with 1 month follow-up with duplex. Per vascular surgery team, right arm graft is safe to access as needed for dialysis. Of note, nephrology consulted for elevated K+ postop and pt rec'd two runs of dialysis while admitted. Pt will resume his regular dialysis at [facility] on Wednesday12/16/2018 to resume normal schedule. Most Recent Vitals: 12/14/18 1429 BP: (!) 168/95 Pulse: Resp: 18 Temp: 37.2 ??C (99 ??F) SpO2: 94% Physical exam: General: NAD HEENT: EOMI, anicteric sclerae Cardiac: regular rate Pulmonary: nonlabored breathing on room air Abdominal: soft, nontender, nondistended Extremities: R arm with incisions covered with sterile dressings c/d/i, palpable thrill along graft. Palpable radial pulse Important Studies and Lab Data: Recent Labs 12/13/18 1832 WBC 4.8 HGB 10.5* HCT 32.3* PLATELET 172 Lab Results Component Value Date INR 0.9 08/03/2018 Lab Results Component Value Date Sodium 137 12/14/2018 Potassium 4.5 12/14/2018 Chloride 97 (L) 12/14/2018 CO2 27 12/14/2018 BUN 39 (H) 12/14/2018 Creatinine 5.17 (H) 12/14/2018 Glucose Lvl 107 12/14/2018 Studies: none Discharge Conditions/Prognosis: Good Discharge to: [facility] care facility in [facility]. Discharge Medications: Your Medications New Medications Dose Details aspirin 81 mg Tbec Take 1 tablet by mouth daily. 81 mg Quantity: 30 tablet Refills: 3 Continued medications, unchanged Dose Details acetaminophen 500 mg Tab Commonly known as: TYLENOL Take 2 tablets by mouth every 6 hours. 1000 mg Quantity: 30 tablet Refills: 1 allopurinol 100 mg Tab Commonly known as: ZYLOPRIM Take 1 tablet by mouth daily. 100 mg Quantity: 30 tablet Refills: 11 amLODIPine 10 mg Tab Commonly known as: NORVASC Take 1 tablet by mouth daily. 10 mg Quantity: 30 tablet Refills: 0 calcium carbonate 200 mg calcium (500 mg) Chew Commonly known as: Tums Take 2 tablets by mouth 3 times daily (with meals). 1000 mg Quantity: 90 tablet Refills: 0 carvedilol 12.5 mg Tab Commonly known as: COREG Take 1 tablet by mouth 2 times daily (with meals). 12.5 mg Quantity: 60 tablet Refills: 3 dilTIAZem 120 mg Cp24 Commonly known as: CARTIA XT Take 1 capsule by mouth daily. 120 mg Quantity: 90 capsule Refills: 0 hydrALAZINE 100 mg Tab Commonly known as: APRESOLINE Take 1 tablet by mouth 3 times daily. 100 mg Quantity: 90 tablet Refills: 0 levETIRAcetam 500 mg Tab Commonly known as: KEPPRA Take 1 tablet by mouth 2 times daily. 500 mg Quantity: 60 tablet Refills: 0 levothyroxine 100 mcg Tab Commonly known as: SYNTHROID Take 1 tablet by mouth daily. 100 mcg Quantity: 90 tablet Refills: 0 losartan 100 mg Tab Commonly known as: COZAAR Take 1 tablet by mouth every morning. 100 mg Quantity: 60 tablet Refills: 0 multivitamin Cap Take 1 capsule by mouth daily. 1 capsule Quantity: 30 capsule Refills: 0 pantoprazole 20 mg Tbec Commonly known as: PROTONIX Take 1 tablet by mouth 2 times daily. 20 mg Quantity: 60 tablet Refills: 0 tacrolimus 1 mg Cap Commonly known as: PROGRAF Take 1 capsule by mouth 2 times daily. 1 mg Quantity: 60 capsule Refills: 0 Updated Allergies/ADRs: Allergies Allergen Reactions ??? Benazepril Hcl ??? Codeine Other (See Comments) Patient does not know reaction ??? Hydrochlorothiazide ??? Pollen Extracts Sneezing/runny nose Instructions Given to Patient at Discharge: Patient Instructions Instructions Following Fistula Surgery Wound Care: Keep the dressings from the operating room in place for 1-2 days. Activity: return to your usual level of activity Call Doctor for: Please call if you notice worsening redness or drainage from incision(s) lasting longer than 5 days after your surgery, any foul-smelling drainage from the incision, pain not controlled by pain medications, or for any fevers greater than 101.3 F. Follow-up: You will have a follow-up appointment scheduled with Dr. Shah in 2-4 weeks with an ultrasound of the fistula to see that it is maturing. Dr. Shah feels your new graft is ready for use during dialysis. Appointment will be mailed to you and/or you may be called with a date and time from the clinic. Ifyou do not hear from the clinic within 1 week of your appointment please call to confirm date and time of your appointment. Please put sunscreen over the incisions if in the sun; the incisions will smith differently than the rest of your skin and may become dark if you do not apply sunscreen. For any problems or questions please call [phone] For issues on weeknights after 5pm and weekends please call [phone] and ask for the Vascular Fellow almond blancher. YEIMY Flalon, director of manufacturing operations Nurse Clinician General Instructions None Future Appointments and Orders Future Orders Complete By Expires AVF/Established Access Evaluation [VAS61 Custom] 01/12/2019 03/15/2019 Process Instructions: There is no in-house vascular laborer pullet farm available on weeknights (5pm-8am), weekends, or holidays. IF THIS IS A REQUEST FOR AN EMERGENT STUDY DURING THOSE HOURS, please have the senior provider responsible for the patient page the Vascular Surgery Fellow/Senior Resident almond blancher to discuss options. Scheduling Instructions: Questions: Laterality: Right Which extremity?: Upper Indication for study/signs & symptoms: s/p Right brachioaxillary graft with 7 mm - 4 mm taperedAccuseal (12/13/18) Question to be answered: ?maturation At which [facility] location will this be performed?: [place] AVF/Established Access Evaluation [VAS61 Custom] 01/13/2019 12/15/2019 Process Instructions: There is no in-house vascular laborer pullet farm available on weeknights (5pm-8am), weekends, or holidays. IF THIS IS A REQUEST FOR AN EMERGENT STUDY DURING THOSE HOURS, please have the senior provider responsible for the patient page the Vascular Surgery Fellow/Senior Resident almond blancher to discuss options. Scheduling Instructions: Questions: Laterality: Right Which extremity?: Upper Indication for study/signs & symptoms: s/p Right brachioaxillary graft with 7 mm - 4 mm taperedAccuseal (12/13/18) Question to be answered: patency At which DH location will this be performed?: [place] Discharge References/Attachments: Discharge References/Attachments None Electronically Signed By: Thelma Solitario MD 12/14/2018 documented in this encounter Discharge Instructions * Patient Instructions* Nilda Minaya RN - 12/13/2018 4:52 PM EDT Instructions Following Fistula Surgery Wound Care: Keep the dressings from the operating room in place for 1-2 days. Activity: return to your usual level of activity Call Doctor for: Please call if you notice worsening redness or drainage from incision(s) lasting longer than 5 days after your surgery, any foul-smelling drainage from the incision, pain not controlled by pain medications, or for any fevers greater than 101.3 F. Follow-up: You will have a follow-up appointment scheduled with Dr. Shah in 2-4 weeks with an ultrasound of the fistula to see that it is maturing. Dr. Shah feels your new graft is ready for use during dialysis. Appointment will be mailed to you and/or you may be called with a date and time from the clinic. Ifyou do not hear from the clinic within 1 week of your appointment please call to confirm date and time of your appointment. Please put sunscreen over the incisions if in the sun; the incisions will smith differently than the rest of your skin and may become dark if you do not apply sunscreen. For any problems or questions please call [phone] For issues on weeknights after 5pm and weekends please call [phone] and ask for the Vascular Fellow almond blancher. YEIMY Fallon, director of manufacturing operations Nurse Clinician documented in this encounter Medications at Time [...] as of this encounter Progress Notes * Ilda Wong, RN - 12/14/2018 4:50 PM EDT Office of Care Management/Bin Worker Name: Christy Ambrose Presenting Issue: Outpatient Dialysis Update Notified [facility] HD unit that patient is scheduled for discharge yesterday. The dialysis unit is ready for the patient on Wednesday at 7:45am. The patient will have a schedule of mon/wed/fri at 7:45. Plan: Discharge Summary and last acute dialysis records will be faxed to the forensic specialist upon discharge. This office will be available to the patient, Mine Patrol-RN and Firer Locomotive Crane for further assistance. Dialysis Unit Address: [address] [place] [address] \ ILDA WONG RN Bin Worker * Tana Briones, JULIAN - 12/14/2018 4:22 PM EDT Nutrition Initial Note Christy Ginna Ambrose is a 58 y.o. male Reason for intervention: Education Nutrition Recommendations: Recommend renal diet order (pt on potassium restriction only). Recommend checking phos level. Diet education provided and reviewed with patient. Pt d/c'd home. Patient Active Problem List Diagnosis Code ??? [...] Pneumonia ??? TBI (traumatic brain injury) 1979 Active Orders Diet Potassium Controlled diet Frequency: Effective Now Number of Occurrences: Until Specified Admit Weight: Estimated body mass index is 26.63 kg/m?? as calculated from the following: Height as of 11/29/18: 177.8 cm (5' 10). Weight as of 11/29/18: 84.2 kg (185 lb 9.6 oz). Parkman Body Weight (IBW): Parkman body weight: 73 kg (160 lb 15 oz) Adjusted ideal body weight: 77.5 kg (170 lb 12.8 oz) Estimated needs: Calories: 2100 Protein: 126 grams Today's medications: noted Lab Results Component Value Date NA 137 12/14/2018 K 4.5 12/14/2018 CL 97 (L) 12/14/2018 CO2 27 12/14/2018 BUN 39 (H) 12/14/2018 CREATININE 5.17 (H) 12/14/2018 GLUCOSE 107 12/14/2018 MAGNESIUM 0.87 11/29/2018 CALCIUM 8.4 (L) 12/14/2018 PHOS 3.6 11/29/2018 AST 14 11/29/2018 ALT 13 11/29/2018 ALKPHOS 93 11/29/2018 BILITOT 0.5 11/29/2018 BILIDIR 0.2 05/15/2017 TRIG 103 11/29/2018 Assessment: Pt seen for potassium-controlled diet order, admitted with ESRD on HD with access issues. Pt with previous failed renal transplant in 2002, started back on HD in July. During his July admission this designer/writer saw him and reviewed renal diet information with him. Pt reports that he currently lives in a half-way where he does not always have options in his meals, but tries to mostly make bianchi choices and eat smaller amounts of foods that he knows are high in potassium. Reviewed high potassium foods again with him and provided him with a list of potassium content from the nutrition care manual. JERICHO LORENZO Beeper #: [phone] * Oliver Link RN - 12/14/2018 4:13 PM EDT Patient discharged to home. IV removed, site benign. My assessment remains unchanged from my previous assessment. RN Discussed pain management with patient, pain tolerable. Patient medicated prior todischarge. Patient has all belongings and supplies needed. Patient received After Visit Summary, patient verbalizes understanding of AVS. All questions answered. Patient encouraged to call with questions or concerns. Patient discharged to home with family. * Trever Hdez - 12/14/2018 4:12 PM EDT Referral for Non-Emergent Medical Transportation (NEMT) received from Britany Stuart on 12/14 ?? Is the patient listed having [place] or [place] Medicaid? Yes ?? If yes, is the patient's Medicaid currently active? Yes ?? If no, is the patient able to use the [employer] bus service to a destination surrounding , if applicable? n/a ?? If no, does the patient have family or friends that can pick them up at discharge? n/a ?? If no, does the patient have any money either on hand, available at home and/or through a creditcard? n/a ?? If no, is the patient able to reimburse for OCM???s payment for transport, if granted? n/a ?? If no, contact local non-emergent transportation brokers for a quote from to destination and request payment authorization from CM-Managers. Transport initiated/confirmed: Spoke with Maria E from [facility] who confirmed a mobile lounge driver or operator will arrive to pick patient up at discharge today from the Main entrance at 4:00pm en route to home address. * Britany Stuart RN - 12/14/2018 2:15 PM EDT The patient/sales account representative has been provided a list of Home Health Agencies/DME vendors which servetheir preferred geographic area. A letter describing our affiliations was reviewed with them and they were educated about their right to choose where referrals are placed. Patient requests referral back to: [facility] for HD. Schedule is MW. Next HD s/b Wednesday. Expected date of discharge: 12/14. Referral routed to the Bin Worker for matching with agency/vendor and to provide any required information. * Asim Meneses RN - 12/13/2018 8:59 PM EDT Pt arrived to floor from [facility]. A/Ox4, VSS on RA. Denies pain, SOB, n/v, n/t. +csmt's. Oriented to room, call daniels within reach. Educated on fall prevention and pain management plan. See doc flow for full assessment. Will continue to monitor. * Domi Weber RN - 12/13/2018 8:00 PM EDT 1917 fsb (disregarded) 1919 recheck fsbg 54 pt asymptomatic, eating dinner, given 240cc rodney jerardo. aware and assessingat bedside. 1950 fsbg recheck 56, pt asymptomatic, given another 240cc of rodney jerardo 1999 Patient transferred from short stay to room 317 for in room HD tonight. Patient traveled with telemetry and RN * Moises Guerrero RN - 12/13/2018 6:17 PM EDT Order to use left extremity (old fistula site) obtained from * Padmini Biswas RN - 12/13/2018 6:06 PM EDT ID: Christy Ambrose is a 58 y.o. male with a history of ESRD now on HD MWF. He underwent transplantation in November of 2002, but due to recurrent IgA nephropathy and prograft toxicity he is now back on HD as of July 2018. He is now POD #0 for RUE AVG. 24 hr brief events: Life safety called to bedside for IV placement and treatment of critical potassium. Upon arrival, patient was without IV access and limited sites for accessibility. Subjective/Objective: VS: 36.9, 51, 127/79, RR 14, 97 on RA CV: HR 40's, SB, BP stable, skin warm, pink and dry. Labs: K+7.2, bmp drawn with IV Diagnostics: no new diagnostics Assessment/Plan: Mr. Ambrose is a 58 yo with ESRD admitted in [facility] s/p AVG in [facility] now hyperkalemic at 7.2. IV was discontinued in anticipation of D/C to home. New IV to be placed required discussion with Dr. Whiteside (nephrology) for verbal order to access LEFT upper extremity (non functioning AVG extremity). Vascular access team in with ultrasound to place 18G PIV with labs drawn and sent. Orders for D50/insulin/calcium placed and administered by primary RN. HD to be performed this evening (around 1930). Disposition: Pt to travel to HD and then return to [facility] for overnight observation. Advised nursing to call for any concerns or questions. Thank you! Angely Biswas RN Life Safety/ICU [phone] or [phone] * Padmini Ruiz RN - 12/13/2018 4:24 PM EDT CM asked by Dr. Jhonny Solitario to arrange transportation home for this pt. Pt is post operative today for: Right brachioaxillary graft with 7 mm - 4 mm tapered Accuseal. Pt lives at the [facility], a Residential care facility in [facility]. I spoke with RA Guadalupe at [facility] who informed me that pt is transported by [facility] for all appointments and dialysis . Pt is picked up for dialysis at 7:30 am. I called [facility] at . They will send a mobile lounge driver or operator by the name of Junito to the Main Entrance of [facility] this evening at 18:30. I will update pt's nurse Litzy and Anayeli via phone calls. Dr. Solitario aware. Padmini Ruiz RN [address] [place] Mine Patrol Pager: [phone] * Megan Eugene RN - 12/13/2018 1:24 PM EDT 1320 Report received from Aby ROGERS) in PACU documented in this encounter H&P Notes * Rasta Hernández MD - 12/11/2018 12:37 PM EDT Vascular Surgery History and Physical Planned Procedure: Right arm AVG placement HPI: Christy Ambrose is a 58 y.o. male with a history of ESRD now on HD MW. He underwent transplantation in November of 2002, but due to recurrent IgA nephropathy and prograft toxicity he is now back on HDas of July 2018. He is right hand dominant. He has a history of a LUE RC AVF and BC AVF. In March of 2018 he sustained a massive hemorrhage from the BC AVF and subsequent PEA arrest. He was resuscitated and the BC AVF was found to be infected and was debrided. His RC AVF was also ligated due to dilation and conc nicki for infection. His left arm was left open and subsequently skin grafted. He has recovered from this procedure, but because he is now back on HD, he presents for placement of durable HD access. He is currently dialyzed via a right IJ TDC. He has no poor venous conduit in either arm. ROS: As per HPI. Remainder of ROS is otherwise negative. Past Medical and Surgical History: Patient Active Problem List Diagnosis Code [...] ??? ESRD (end stage renal disease) N18.6 Meds: No current facility-administered medications for this encounter. Allergies: Benazepril hcl; Codeine; Hydrochlorothiazide; and Pollen extracts Social Hx: Social History Socioeconomic History ??? Marital status: Single Spouse name: None ??? Number of children: None ??? Years of education: None ??? Highest education level: None Occupational History ??? 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 Financial resource strain: None ??? Food insecurity: Worry: None Inability: None ??? Transportation needs: Medical: None Non-medical: None Tobacco Use ??? Smoking status: Former Smoker Packs/day: 0.25 Years: 1.50 Pack years: 0.37 Types: Cigarettes Last attempt to quit: 12/03/2000 Years since quittin.0 ??? Smokeless tobacco: Former User Quit date: 04/14/2001 Substance and Sexual Activity ??? Alcohol use: No ??? Drug use: No Types: Marijuana Comment: havent in /1995 ??? Sexual activity: None Comment: Deferred Lifestyle ??? Physical activity: Days per week: None Minutes per session: None ??? Stress: None Relationships ??? Social connections: Talks on phone: None Gets together: None Attends buddhism service: None Active member of club or organization: None Attends meetings of clubs or organizations: None Relationship status: None ??? Intimate partner violence: Fear of current or ex partner: None Emotionally abused: None Physically abused: None Forced sexual activity: None Other Topics Concern ??? None Social History Narrative ??? None Family hx: Family History Problem Relation Age of Onset ??? Pancreatitis Father Physical Exam: Temp: -- Heart Rate: -- Resp: -- BP: -- SpO2: -- Heart Rate from SpO2: -- General: NAD, resting comfortably CVS: Regular Pulm: Normal work of breathing on RA GI: Soft, non tender, non distended Vasc: RUE: 2/2 brachial pulse LUE: 2/2 brachial pulse, well healed skin grafting site Neuro: CN 2-12 grossly intact, nonfocal, moving all extremities. Laboratory: K: 5.8 Studies: No usable vein for autogenous access. Patent subclavian and axillary veins. Triphasic waveforms in brachial arteries. Assessment/Plan: 58 y.o. male with a history of ESRD now on HD MWF. He underwent transplantation inMay of 2002, but due to recurrent IgA nephropathy and prograft toxicity he is now back on HD as of July 2018. He now presents for durable HD access creation via RUE AVG. documented in this encounter Miscellaneous Notes * Consult Note - Radha Hughes - 12/14/2018 10:12 AM EDT NEPHROLOGY PROGRESS NOTE PATIENT: Christy Ambrose : 1960 ID: Christy Ambrose is a 58yo male with a history of ESRD due to IgA nephropathy and undewent DD renal transplant on 11/26/02, Post-transplant course was complicated by delayed graft function, recurrentIgA, CNI toxicity, and most recently had a ruptured LUE AVF resulting in cardiac arrest in the setting of hemorrhagic shock, failed renal transplant on HD (MWF) for whom we are initconsulted for emergent dialysis for hyperkalemia of 7.2 which was found when he came for right brachioaxillary AVG placement yesterday. 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 Patient remains on Prograf 1mg BID. Dialysed emergently last night for 2.5 Hrs for hyperkelmia. S:Seen on HD,stable run.Denies any CP/SOB.Saturating well on RA.Minimal pain at the AVG placement site.No fever/chills/N/V/abdominal pain Past Medical History: Diagnosis Date ??? BP (high blood pressure) ??? DVT (deep venous thrombosis) ??? Gout ??? Hypertension ??? Kidney problem ??? Pneumonia ??? TBI (traumatic brain injury) 1979 MEDICATIONS: ??? allopurinol 100 mg Oral Daily ??? amLODIPine 10 mg Oral Daily ??? carvedilol 12.5 mg Oral BID WC ??? dilTIAZem 120 mg Oral Daily ??? hydrALAZINE 100 mg Oral TID ??? levETIRAcetam 500 mg Oral BID ??? levothyroxine 100 mcg Oral Daily ??? losartan 100 mg Oral QAM ??? pantoprazole 20 mg Oral BID ??? tacrolimus 1 mg Oral BID ??? aspirin 81 mg Oral Daily ??? sodium chloride 0.9 % 5 mL Intravenous Q12H PHYSICAL EXAM: Last value Range last 24 hrs Temperature Temp: 37.2 ??C (99 ??F) Temp: [36.4 ??C (97.5 ??F)-37.3 ??C (99.1 ??F)] Heart Rate Heart Rate: 63 Heart Rate: [58-64] Blood Pressure BP: (!) 168/95 BP: (120-168)/(67-95) Respiratory Rate Resp: 18 Resp: [14-18] SpO2 SpO2: 94 % SpO2: [93 %-95 %] Appearance - Awake and alert. NAD. Skin - Well-healed left forearm surgical scar,R UE AVG site with bandage HEENT - No sclera icterus. Moist oral mucosa. Chest - Lungs CTA. Right IJ TDC. Heart - S1 and S2. Regular rate and rhythm,. No MRG. Abd - Soft. Non-tender. Non-distended. Normal BS. Ext - RUE AVG with bruit. Warm extremities. No cyanosis. No peripheral edema. Neuro - Normal speech. Labs: CBC: Recent Labs 12/13/18 1832 11/29/18 0945 08/03/18 1909 WBC 4.8 4.8 4.7 HGB 10.5* 11.8* 9.2* PLATELET 172 200 149 Chemistry: Recent Labs 12/14/18 1445 12/14/18 0439 12/13/18 1816 11/29/18 0945 08/08/18 0556 NA -- 137 134* -- 137 134* K 4.5 5.0 7.2* < > 5.8* 4.0 CL -- 97* 95* -- 95* 98 CO2 -- 27 28 -- 26 25 BUN -- 39* 55* -- 43* 27* CREATININE -- 5.17* 6.94* -- 7.34* 4.69* GLUCOSE -- 107 123 -- -- 88 < > = values in this interval not displayed. Recent Labs 12/14/18 0439 12/13/18 1816 11/29/18 0945 08/08/18 0556 08/03/18 0402 07/29/18 2136 07/19/18 0941 CALCIUM 8.4* 8.3* 9.4 7.7* < > 7.7* < > 8.1* 7.7* 7.7* MAGNESIUM -- -- 0.87 -- -- -- -- 1.02 0.89 PHOS -- -- 3.6 3.1 -- 3.9 < > 7.5* 6.7* < > = values in this interval not displayed. LFT's: Recent Labs 11/29/18 0945 07/19/18 0941 06/07/18 1042 BILITOT 0.5 0.3 0.4 ALBUMIN 4.2 3.5 3.3 ALKPHOS 93 101 100 ALT 13 11 13 AST 14 18 19 IMPRESSION/ RECOMMENDATIONS: 1. ESRD on HD (M/W/F) - Failed DD renal transplant (transplant on 11/26/02). Outpatient HD at [facility]. - Access: Right IJ TDC (right brachioaxillary AVG placed 12/13) -Emergent HD yesterday (2.5h, 1k for 1h then 2k, 1L UF). -HD today-3Hrs,3K,Uf of 1Kg -Next HD mostly on Wednesday per his out patient schedule - Continue Prograf 1mg BID. - Monitor Is and Os. - Renally dose medications. 2. HTN -BP fairly controlled.Need to adjust meds out patient.Hold ANILA/ARB for now 3. Anemia -Hgb at target,No indications for CRISTY 4. BMD - Ca++, Phos, PTH WNL as of last month. Continue Tums with meals. Seen and discussed with . Please call with any questions. Radha Hughes MD Nephrology Fellow #[id number] Associated attestation - Carroll Baires MD - 12/14/2018 8:59 PM EDT Renal Staff Addendum Patient seen and examined with Dr. Hughes. I agree with the above note which represents our joint assessment and plan with the following additions: Seen and examined on hemodialysis. Stable run. * Plan of Care - Asim Meneses RN - 12/14/2018 2:06 AM EDT Problem: Patient Care Overview Goal: Plan of Care Review Outcome: Ongoing (Interventions Implemented as Appropriate) 12/13/18 1847 12/13/182012 Coping/Psychosocial Plan Of Care Reviewed With -- patient Plan of Care Review Progress progress toward functional goals as expected -- OUTCOME EVALUATION NOTE: OUTCOME SUMMARY: Pt received 1 round of hemodialysis at the beginning of the shift, slated to receive another later today. Will need HD at bedside if tele orders remain stating tele on at all times. Resting between care throughout shift after HD. Pt stating right arm hurts and minimizes movement but denies wanting additional pain medications. Frequent repositioning encouraged. VSS. Will continue to monitor. PLAN MOVING FORWARD: HD, d/c planning INDIVIDUALIZED FALL PREVENTION INTERVENTIONS: Patient-specific fall risk factors per assessment: [current deficits]: Hospital environment Assistance [level of assistance required for transfers and ambulation]: SBA Supervision [direct monitoring required during toileting and ADLs]: Min Surveillance [continuous indirect monitoring]: Hourly roundingAngelina NKE at bedside, call daniels within reach * Consult Note - Munira Whiteside MD - 12/13/2018 6:21 PM EDT NEPHROLOGY CONSULT NOTE PATIENT: Christy Ambrose : 1960 REASON FOR CONSULTATION: ESRD, emergent HD for hyperkalemia HPI: This is a 58yo male with a history of failed renal transplant on HD (MWF) for whom we are consulted for emergent dialysis for hyperkalemia of 7.2. Patient underwent right brachioaxillary AVG placement today. Patient was hemodynamically stable post op however was bradycardic in the 40s. EKG showed sinus bradycardia which had been present previously although HR now lower. At the time of exam the patient was awake, alert, appeared comfortable in bed and had no complaints. 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 Post-transplant course was complicated by delayed graft function, recurrent IgA, CNI toxicity, and most recently had a ruptured LUE AVF resulting in cardiac arrest in the setting ofhemorrhagic shock. 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 Patient remains on Prograf 1mg BID. Past Medical History: Diagnosis Date ??? BP [...] - Tunneled Line 07/30/2018 Walt Lin MD [facility] RAD ??? IR DIALYSIS ACCESS - TUNNELED LINE 08/30/2018 IR Dialysis Access - Tunneled Line 08/30/2018 Erwin Simon APRN [facility] RAD ??? KIDNEY TRANSPLANT KIDNEY TRANSPLANT / RECIPIENT/LT Procedure Date: 11/26/2002 ? ? PRO DEBRIDEMENT SUBCUTANEOUS TISSUE 20 SQCM/< Left 02/20/2016 DEBRIDEMENT SKIN AND SUBCU, HEAD/NECK performed by Miguel Angel Moreno MD at [facility] OR ??? PRO DECOMPRESS FOREARM, BRACH ART EXPLOR Left 04/06/2018 FASCIOTOMY, FOREARM, WITH BRACHIAL ARTERY EXPLORATION (WRVU 8.41) performed by Lida Peter MDat [facility] OR ??? PRO DIRECT REPAIR RUPTURED ANEURYSM, AXILLO-BRACHIAL ARM INCIS Left 04/06/2018 @REPAIR, RUPTURED AXILLARY OR BRACHIAL ARTERY ANEURYSM BY ARM INCISION (WRVU *) performed by Lida Peter MD at [facility] OR ??? PRO EXC PAROTD, TOTAL, UNILAT RAD NECK Left 02/05/2016 @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, TOTAL, WITH UNILATERAL RADICAL NECK DISSECTION performed by Miguel Angel Moreno MD at [facility] OR ??? PRO EXC SKIN MALIG 3.1-4CM FACE, FACIAL Left 02/05/2016 EXC MALIGNANT LESION, 3.1 TO 4.0CM, FACE performed by Miguel Angel Moreno MD at [facility] OR ? ? PRO EXC SKIN MALIG >4CM TRUNK, ARM, LEG 04/19/2012 EXC MALIGNANT LESION, MICHAEL > 4.0CM, TRUNK performed by SABRINA SANCHEZ at [facility] OR ??? PRO LAP, RADICAL NEPHRECTOMY Left 05/31/2017 @LAPAROSCOPY, RADICAL NEPHRECTOMY (WRVU 25.06) performed by Jax Mills MD at [facility] MAIN OR ??? PRO LIGATN ANGIOACCESS AV FISTULA Left 04/19/2018 LIGATION OR BANDING OF HEMODIALYSIS FISTULA OR GRAFT UPPER EXTREMITY (WRVU 6.25) performed by Odalis Elias MD at [facility] MAIN OR ??? PRO NEGATIVE PRESSURE WOUND THERAPY, LESS THAN OR EQUAL TO 50 SQCM Left 04/19/2018 DRESSING CHANGE (VAC ASSISTED) UP TO 50SQ.CM (WRVU 0.55) performed by Odalis Elias MD [facility] OR ??? PRO REBL VES GRAFT, UP EXTREM Left 04/06/2018 REPAIR BLOOD VESSEL WITH GRAFT OTHER THAN VEIN, UPPER EXTREMITY (WRVU 15.83) performed by Lida Peter MD at [facility] OR ??? PRO RELIEVE PRESSURE ON NERVE(S) Left 04/06/2018 (MSURG) CARPAL TUNNEL (WRVU 4.82) performed by Silviano Sparks MD at [facility] OR ??? PRO REPAIR INTERMEDIATE S/A/T/E 2.6-7.5 CM 04/19/2012 REPAIR INTERMEDIATE WOUND, (NO HANDS OR FEET) 2.6 TO 7.5CM, UPPER EXTREMITY performed by SABRINA SANCHEZ at [facility] OR ? ? PRO REPAIR INTERMEDIATE S/A/T/E > 30.0 CM Left 04/14/2018 REPAIR INTERMEDIATE WOUND, (NO HANDS OR FEET) >30.0CM, UPPER EXTREMITY (WRVU 5) performed by Yimi Easton MD at [facility] OR ??? PRO REVISE MEDIAN N/CARPAL TUNNEL SURG Left 04/06/2018 MEDIAN NERVE DECOMPRESSION (CARPAL TUNNEL RELEASE) (WRVU 4.97) performed by Lida Peter MD [facility] MAIN OR ? ? PRO SPLIT GRFT TRUNK, ARM, LEG <100SQCM Left 04/26/2018 SPLIT THICK SKIN GRAFT,100 SQ CM OR LESS, ARMS (WRVU 9.9) performed by Silviano Sparks MD at [facility] MAIN OR ? ? PRO SPLIT GRFT, HEAD, FAC, HAND, FEET <100SQCM N/A 02/20/2016 SPLIT THICKNESS SKIN SPLIT GRAFT,100SQ CM OR LESS, NECK performed by Miguel Angel Moreno MD at [facility] MAIN OR ??? PRO SPLIT GRFT, TRUNK, ARM, LEG EA 100SQCM N/A 04/26/2018 EA.ADDITIONAL 100SQ.CM STSG (WRVU 1.72) performed by Silviano Saprks MD at [facility] MAIN OR ??? PRO UPPER GI ENDOSCOPY, BIOPSY N/A 05/13/2017 EGD WITH BIOPSY (WRVU 2.49) performed by Aditya Barrera MD at [facility] ENDOSCOPY ??? PRO VASCULAR SURGERY PROCEDURE UNLIST Left 11/20/2015 LIGATION\REPAIR AV FISTULA performed by Camilo Ireland MD at [facility] MAIN OR ??? PRO VASCULAR SURGERY PROCEDURE UNLIST Left 11/20/2015 EXCISION VEIN FROM HAND performed by Camilo Ireland MD at [facility] MAIN OR ??? US RENAL TRANSPLANT BIOPSY 12/31/2010 ??? US RENAL TRANSPLANT RIGHT Right 06/04/2018 US Renal Transplant Right 06/04/2018 [facility] RAD ULTRASOUND Family History Problem Relation Age of Onset ??? Pancreatitis Father Social History Social History Narrative Not on file Outpatient medications: No current facility-administered medications on file prior to encounter. Current Outpatient Medications on File Prior to Encounter Medication Sig Dispense Refill ??? dilTIAZem (CARTIA XT) 120 mg Capsule, Sust. Release 24 hr Take 1 capsule by mouth daily. 90 capsule 0 ??? allopurinol (ZYLOPRIM) 100 mg [...] 2 times daily. 60 capsule 0 ??? multivitamin Capsule Take 1 capsule by mouth daily. 30 capsule 0 ??? acetaminophen (TYLENOL) 500 mg Tablet Take 2 tablets by mouth every 6 hours. 30 tablet 1 ??? amLODIPine (NORVASC) 10 mg Tablet Take 1 tablet by mouth daily. 30 tablet 0 ??? calcium carbonate (TUMS) 200 mg calcium (500 mg) Tablet, Chewable Take 2 tablets by mouth 3 times daily (with meals). 90 tablet 0 ??? carvedilol (COREG) 12.5 mg Tablet Take 1 tablet by mouth 2 times daily (with meals). 60 tablet 3 ??? levothyroxine (SYNTHROID) 100 mcg Tablet Take 1 tablet by mouth daily. 90 tablet 0 MEDICATIONS: ??? [START ON 12/14/2018] allopurinol 100 mg Oral Daily ??? [START ON 12/14/2018] amLODIPine 10 mg Oral Daily ??? carvedilol 12.5 mg Oral BID WC ??? [START ON 12/14/2018] dilTIAZem 120 mg Oral Daily ??? hydrALAZINE 100 mg Oral TID ??? levETIRAcetam 500 mg Oral BID ??? [START ON 12/14/2018] levothyroxine 100 mcg Oral Daily ??? [START ON 12/14/2018] losartan 100 mg Oral QAM ??? pantoprazole 20 mg Oral BID ??? tacrolimus 1 mg Oral BID ??? aspirin 81 mg Oral Daily ??? sodium polystyrene 15 g Oral Q4H Allergies Allergen Reactions ??? Benazepril Hcl ??? Codeine Other (See Comments) Patient does not know reaction ??? Hydrochlorothiazide ??? Pollen Extracts Sneezing/runny nose ROS: Constitutional - No fevers, chills, weight loss. Skin - No rash or pruritus. HEENT - No headaches, visual changes. Resp - No cough, shortness of breath, or wheezing. CV - No chest pain, palpitations, dizziness, orthopnea/PND. GI - No nausea, vomiting, abdominal pain, change in bowel habits or stool color. - No dysuria or hematuria. Neuro - No focal weakness, numbness or tingling. PHYSICAL EXAM: Last value Range last 24 hrs Temperature Temp: 36.9 ??C (98.4 ??F) Temp: [36.3 ??C (97.3 ??F)-36.9 ??C (98.4 ??F)] Heart Rate Heart Rate: 51 Heart Rate: [48-61] Blood Pressure BP: 127/79 BP: (108-138)/(51-81) Respiratory Rate Resp: 14 Resp: [9-14] SpO2 SpO2: 97 % SpO2: [91 %-97 %] Appearance - Awake and alert. NAD. Skin - Well-healed left forearm surgical scar. HEENT - No sclera icterus. Moist oral mucosa. Chest - Lungs CTA. Right IJ TDC. Heart - S1 and S2. Regular rate. Bradycardic. No MRG. Abd - Soft. Non-tender. Non-distended. Normal BS. Ext - RUE AVG with bruit. Warm extremities. No cyanosis. No peripheral edema. Neuro - Normal speech. Labs: CBC: Recent Labs 11/29/18 0945 08/03/18 1909 07/29/18 213 WBC 4.8 4.7 3.8* HGB 11.8* 9.2* 9.2* PLATELET 200 149 105* Chemistry: Recent Labs 12/13/18 1540 12/13/18 0829 11/29/18 0945 08/08/18 0556 08/06/18 0632 08/04/18 0434 NA -- -- 137 134* 141 138 K 7.2* 5.8* 5.8* 4.0 3.7 4.1 CL -- -- 95* 98 99 101 CO2 -- -- 26 25 25 23 BUN -- -- 43* 27* 26* 35* CREATININE -- -- 7.34* 4.69* 4.90* 5.61* GLUCOSE -- -- -- 88 90 91 Recent Labs 11/29/18 0945 08/08/18 0556 08/06/18 0632 08/03/18 0402 07/29/18 2136 07/19/18 0941 CALCIUM 9.4 7.7* 7.6* < > 7.7* < > 8.1* 7.7* 7.7* MAGNESIUM 0.87 -- -- -- -- -- 1.02 0.89 PHOS 3.6 3.1 -- -- 3.9 < > 7.5* 6.7* < > = values in this interval not displayed. LFT's: Recent Labs 11/29/18 0945 07/19/18 0941 06/07/18 1042 BILITOT 0.5 0.3 0.4 ALBUMIN 4.2 3.5 3.3 ALKPHOS 93 101 100 ALT 13 11 13 AST 14 18 19 IMPRESSION/ RECOMMENDATIONS: 1. ESRD on HD (M/W/F) - Failed DD renal transplant (transplant on 11/26/02). Outpatient HD at [facility]. - Access: Right IJ TDC (right brachioaxillary AVG placed 12/13) - Will arrange for HD this evening (2.5h, 1k for 1h then 2k, 1L UF). Next HD tomorrow per routine. - Discontinue q4h Kayexalate. Low-K+ diet. Hold home ACEi/ARB. - Continue Prograf 1mg BID. - Monitor Is and Os. - Renally dose medications. 2. HTN - Normotensive currently. Would hold dang blocking agents and ACEi/ARB. Can resume home Amlodipine. Continue to monitor. 3. Anemia - Will obtain CBC. 4. BMD - Ca++, Phos, PTH WNL as of last month. Continue Tums with meals. Will not obtain BMD labs since patient is being discharged tomorrow. We will continue to follow. Please call with any questions. Munira Whiteside MD Nephrology Fellow Associated attestation - Carroll Baires MD - 12/14/2018 8:57 PM EDT Renal Staff Addendum Patient seen and examined with Dr. Whiteside. I agree with the above note which represents our joint assessment and plan with the following additions: ESRD patient s/p AVG placement with severe hyperkalemia. HD urgently tonight. * Op Note - Anna Shah MD - 12/13/2018 12:17 PM EDT [facility] [place] [facility] Operative Note Patient Name: Christy Ambrose : 1960 MR#: [id number] Case Date: 12/13/2018 Date of Operation: 12/13/2018. Surgeon(s) and Role: * Anna Shah MD - Primary * Rasta Hernández MD - Resident Preoperative Diagnosis: ESRD Postoperative Diagnosis: Same Procedure: Right brachioaxillary graft with 7 mm - 4 mm tapered Accuseal Findings: Palpable radial pulse and thrill in AVG on completion. Anesthesia: General LMA anesthesia Estimated Blood Loss: 25 mL Urine Output: No escobar placed Intravenous Fluid: 0.9 L. Drains/Lines: PIVs Specimens: None Intraoperative Medications: Heparin: 7000 Units Protamine: 0 mg Implants: Implant Name Type Inv. Item Serial No. [employer]room[employer] Grader Lot No. LRB No. Used Action GRAFT,ACUSEAL,TPR,[id number] ([id number]) - [id number] IMPLANTS GRAFT,ACUSEAL,TPR,[id number] [employer] Right 1 Implanted Indications for Procedure: Christy Ambrose is a 58 y.o. male who presents with a history of ESRD now on HD MWF. He underwent transplantation in November of 2002, but due to recurrent IgA nephropathy and prograft toxicity he is now back on HD as of July 2018. He now presents for durable HD access creation via RUE AVG. Procedure in Detail: The patient was correctly identified in the Preprocedure Holding Area. After adiscussion of the risks, benefits and alternatives of the procedure and after answering all of the patients questions, the patient wished to proceed and then was consented for the operation. The patient was brought back to the Operating Room and placed supine on the operating table. An LMA was placed by the Anesthesia Service without difficulty. The patient was then prepped and draped in the standard sterile fashion using a alcohol, chlorhexidine and iodine solutions. Pre-operative antibiotics were administered, and a full standard time out was completed prior to initiating the procedure. We began by making a longitudinal incision of the location of the axillary vein. We dissected down through the subcutaneous tissues and identified the axillary vein. We dissected it free from its attachments using Metzenbaum scissors. We dissected out a sufficient length to clamp and sew our anastomosis. We looped the vein with silastic vessel loops. We then made a longitudinal incision over the location of the brachial pulse. We dissected down through the subcutaneous tissues, divided the overlying fascia and identified the brachial artery. We dissected it free from its attachments using Metzenbaum scissors. We dissected a sufficient length toclamp and sew our anastomosis. The artery appeared suitable for clamping. We looped the artery withsilastic vessel loops. We created a counter incision laterally. We then created a tunnel out laterally in the arm for the graft using a Bhavana- Wick tunneler. The 7mm - 4 mm tapered Accuseal graft was brought through the tunnel. The patient was systemically heparinized. The axillary vein was then clamped using Yasargil vessel clips. We created a venotomy. The graft was sewn in an end to side fashion using running 6-0 prolene suture. We then trimmed the graft to the appropriate length for the brachial anastomosis. We clamped the brachial artery and created a longitudinal arteriotomy. We then performed an end to side anastomosis using running 6-0 prolene suture. Just prior to completing the anastomosis we released all clamps including the graft clamp to expel any debris or air. The clamps were then replaced. The anastomosis was completed. We then removed the clamps. We then expelled any debris or air from the graft. The suture was then tied down. The venous clampswere then removed. There was a palpable thrill in the graft, an audible bruit by doppler in the outflow vein, and a pulse in the radial artery, all of which augmented appropriately with graft compression. We used electrocautery to obtain hemostasis in the subcutaneous tissues. When we were satisfied with our hemostasis we closed the axillary, brachial and counter incisions with 1 layer of 3-0 Vicryl. The skin of each incision was closed with vertical mattress sutures of 3-0 Nylon. The skin was dressed with gauze and a Tegaderm. All sponge and instrument counts were correct at the end of the procedure. Dr. Shah, the attending surgeon of record, was present and scrubbed for the duration of the procedure. Disposition: awakened from anesthesia, LMA removed, and taken to the recovery room Condition: doing well without problems I agree with the resident's note, I was present for the entire case Anna Shah MD documented in this encounter Plan of Treatment Not on file documented as of this encounter Procedures Procedure Name Priority Date/Time Associated Diagnosis Comments IMPLANTABLE DEVICES SCAN 12/15/2018 12:00 AM EDT POTASSIUM STAT 12/14/2018 2:45 PM EDT BASIC METABOLIC PANEL Routine 12/14/2018 4:39 AM EDT POCT GLUCOSE Routine 12/13/2018 8:32 PM EDT POCT GLUCOSE Routine 12/13/2018 7:51 PM EDT POCT GLUCOSE Routine 12/13/2018 7:20 PM EDT POCT GLUCOSE Routine 12/13/2018 7:18 PM EDT HEMOGRAM STAT 12/13/2018 6:32 PM EDT HEPATITIS B SURFACE ANTIGEN STAT 12/13/2018 6:16 PM EDT BASIC METABOLIC PANEL STAT 12/13/2018 6:16 PM EDT EKG 12-LEAD STAT 12/13/2018 5:46 PM EDT Hyperkalemia POTASSIUM STAT 12/13/2018 3:40 PM EDT PLACEMENT, AV HEMODIALYSIS GRAFT, SYNTHETIC GRAFT, UPPER EXTREMITY (WRVU 12.03) 12/13/2018 10:09 AM EDT ESRD on dialysis documented in this encounter Results * AVF/Established Access Evaluation (12/29/2018 9:16 AM EDT) VB Text Report Department: Vascular Surgery Lab Patient: [id number] (RIZWANA AMBROSEN) CPT: 91236 ICD10: N18.6 Referring Physician: ANNA SHAH ?? Phone: Indications: s/p R brachio-axillar y [...] Report VASCUBASE 12/29/2018 9:16 AM EDT Anna Shah MD VASCULAR ORDERABLE S VASCUBASE * SCAN DOC: IMPLANTABLE DEVICES (12/15/2018 12:00 AM EDT) Narrative 12/15/2018 12:00 AM EDT Ordered by an unspecified provider. Scanning Provider MEDIA MGR SCAN EXT O RDR/RSLT * Potassium (12/14/2018 2:45 PM EDT) Potassium 4.5 3.5 - 5.0 mmol/L [facility] Comment: Please note: ??Patients with WBC >100,000 may have falsely elevated Potassium levels. ??For accurate Potassium quantification in these patients send serum separator tube (gold top) for subsequent determinations. ??Contact the Clinical Chemistry Laboratory if there are any questions. Blood specimen (specimen) 12/14/2018 2:45 PM EDT 12/14/2018 2:57 PM EDT Narrative Resulting Agency Comment Spec In Lab Anna Shah MD CHEMISTRY ORDERABL ES [facility] [place] [address] * (ABNORMAL) Basic Metabolic Panel (non-fasting) (12/14/2018 4:39 AM EDT) Glucose 107 65 - 199 mg/dL [facility] Comment:Diabetes: >=200 mg/d L plus symptoms Blood Urea Nitrogen 39(H) 10 - 20 mg/dL [facility] Creatinine 5.17(H) 0.80 - 1.50 mg/dL [facility] Comment:delta result recheck ed-KLA Sodium 137 135 - 145 mmol/L [facility] Potassium 5.0 3.5 - 5.0 mmol/L [facility] Comment: Please note: ??Patients with WBC >100,000 may have falsely elevated Potassium levels. ??For accurate Potassium quantification in these patients send serum separator tube (gold top) for subsequent determinations. ??Contact the Clinical Chemistry Laboratory if there are any questions. Chloride 97(L) 98 - 107 mmol/L [facility] Carbon Dioxide 27 22 - 31 mmol/L [facility] Anion Gap 13 5 - 15 mmol/L [facility] Calcium 8.4(L) 8.5 - 10.5 mg/dL [facility] Est Glomerular Filtration Rate 11(L) >=60 mL/min/1. 73 m?? [facility] Comment: The eGFR was calculated using the CKD-EPI equation. As with all creatinine based estimates of kidney function, eGFR values calculated with the CKD-EPI equation are not accurate in patients with acute kidney failure, extremes of body mass or the acutely ill. [email or web address] [email or web address] eGFR 13(L) >=60 mL/min/1. 73 m?? [facility] Comment: The eGFR was calculated using the CKD-EPI equation. As with all creatinine based estimates of kidney function, eGFR values calculated with the CKD-EPI equation are not accurate in patients with acute kidney failure, extremes of body mass or the acutely ill. [email or web address] Blood specimen (specimen) 12/14/2018 4:39 AM EDT 12/14/2018 5:01 AM EDT Narrative Resulting Agency Comment Spec In Lab Anna Shah MD CHEMISTRY ORDERABL ES Performing Organization Address City/[facility]/ZIP Co de Phone Number [facility] [place] [address] * POCT Glucose (12/13/2018 8:32 PM EDT) Glucose, POC 134 65 - 199 mg/dL [facility] Comment: Supplemental ranges: <140 mg/dL before meals <180 mg/dL all other times of the day Blood specimen (specimen) 12/13/2018 8:32 PM EDT 12/13/2018 8:32 PM EDT Anna Shah MD POINT OF CARE TEST ORDERABLES [facility] [place] [place] [address] * (ABNORMAL) POCT Glucose (12/13/2018 7:51 PM EDT) Glucose, POC 56(L) 65 - 199 mg/dL [facility] Comment: Supplemental ranges: <140 mg/dL before meals <180 mg/dL all other times of the day Blood specimen (specimen) 12/13/2018 7:51 PM EDT 12/13/2018 7:51 PM EDT Anna Shah MD POINT OF CARE TEST ORDERABLES [facility] [place] [address] * (ABNORMAL) POCT Glucose (12/13/2018 7:20 PM EDT) Glucose, POC 54(Critica l) 65 - 199 mg/dL [facility] Comment: Supplemental ranges: <140 mg/dL before meals <180 mg/dL all other times of the day Blood specimen (specimen) 12/13/2018 7:20 PM EDT 12/13/2018 7:20 PM EDT Anna Shah MD POINT OF CARE TEST ORDERABLES Performing Organization Address City/[facility] Co de Phone Number [facility] [place] [address] * (ABNORMAL) POCT Glucose (12/13/2018 7:18 PM EDT) Glucose, POC 38(Critica l) 65 - 199 mg/dL [facility] Comment: Supplemental ranges: <140 mg/dL before meals <180 mg/dL all other times of the day Blood specimen (specimen) 12/13/2018 7:18 PM EDT 12/13/2018 7:18 PM EDT Anna Shah MD POINT OF CARE TEST ORDERABLES Performing Organization Address [place] [facility]/ZIP Co de Phone Number [facility] [place] [address] * (ABNORMAL) Hemogram (12/13/2018 6:32 PM EDT) Pathologist [facility] White Blood Cell 4.8 4.0 - 9.5 x10(3)/mc L [facility] Red Blood Cell 3.51(L) 4.58 - 5.54 x10(6)/mc L [facility] Hemoglobin 10.5(L) 13.7 - 16.5 gm/dL [facility] Hematocrit 32.3(L) 40.5 - 48.5 % [facility] Mean Cell Volume 92.0 82.9 - 93.1 fL [facility] Mean Cell Hemoglobin 29.9 27.5 - 32.1 pg [facility] Mean Cell Hemoglobin Concentration 32.5 32.0 - 35.7 gm/dL [facility] Platelet 172 145 - 357 x10(3)/[facility] LABORATORY RDW Standard Deviation 59.7(H) 36.0 - 45.0 [facility] LABORATORY RDW coefficient of variation 17.5(H) 11.4 - 13.8 % [facility] Mean Platelet Volume 9.1 7.6 - 12.9 fL [facility] NRBC% auto 0.0 % [facility] NRBC Absolute 0.000 0.000 - 0.000 x10(3)/[facility] LABORATORY Blood specimen (specimen) 12/13/2018 6:32 PM EDT 12/13/2018 7:33 PM EDT Narrative Resulting Agency Comment Spec In Lab Carroll Baires MD HEMATOLOGY ORDERABLE S [facility] [place] [place] [address] * (ABNORMAL) Basic Metabolic Panel (non-fasting) (12/13/2018 6:16 PM EDT) [facility] Glucose 123 65 - 199 mg/dL [facility] Comment:Diabetes: >=200 mg/d L plus symptoms Blood Urea Nitrogen 55(H) 10 - 20 mg/dL [facility] Creatinine 6.94(H) 0.80 - 1.50 mg/dL [facility] Sodium 134(L) 135 - 145 mmol/L [facility] Potassium 7.2(Criti constance) 3.5 - 5.0 mmol/L [facility] Comment: Called by: mark, Read back by: Odalis Shen, Date/Time:12/13/18 19:00. Please note: ??Patients with WBC >100,000 may have falsely elevated Potassium levels. ??For accurate Potassium quantification in these patients send serum separator tube (gold top) for subsequent determinations. ??Contact the Clinical Chemistry Laboratory if there are any questions. Chloride 95(L) 98 - 107 mmol/L [facility] Carbon Dioxide 28 22 - 31 mmol/L [facility] Anion Gap 11 5 - 15 mmol/L [facility] Calcium 8.3(L) 8.5 - 10.5 mg/dL [facility] Est Glomerular Filtration Rate 8(L) >=60 mL/min/1. 73 m?? [facility] Comment: The eGFR was calculated using the CKD-EPI equation. As with all creatinine based estimates of kidney function, eGFR values calculated with the CKD-EPI equation are not accurate in patients with acute kidney failure, extremes of body mass or the acutely ill. [email or web address] [place] eGFR 9(L) >=60 mL/min/1. 73 m?? [facility] Comment: The eGFR was calculated using the CKD-EPI equation. As with all creatinine based estimates of kidney function, eGFR values calculated with the CKD-EPI equation are not accurate in patients with acute kidney failure, extremes of body mass or the acutely ill. [email or web address] Blood specimen (specimen) 12/13/2018 6:16 PM EDT 12/13/2018 6:23 PM EDT Narrative Resulting Agency Comment Spec In Lab Carroll Baires MD CHEMISTRY ORDERABLES [facility] [place] [place] [address] * Hepatitis B Surface Antigen (12/13/2018 6:16 PM EDT) Pathologist [facility] Hepatitis B Surface Antigen Negative Negative [facility] Blood specimen (specimen) 12/13/2018 6:16 PM EDT 12/13/2018 6:23 PM EDT Narrative Resulting Agency Comment Spec In Lab Carroll Baires MD CHEMISTRY ORDERABLES Performing Organization Address [facility] Co de Phone Number [facility] [place] [place] [address] * EKG 12 Lead (12/13/2018 5:46 PM EDT) [facility] Ventricular rate 46 BPM MUSE SYSTEM Atrial Rate 46 BPM MUSE SYSTEM P-R Interval 174 ms MUSE SYSTEM QRS Duration 100 ms MUSE SYSTEM Q-T Interval 468 ms MUSE SYSTEM QTC Calculated (Bezet) 409 ms MUSE SYSTEM Calculated P [place] 71 degrees MUSE SYSTEM Calculated R [place] 78 degrees MUSE SYSTEM Calculated T [place] 51 degrees MUSE SYSTEM INTERPRETATION Marked sinus bradycardia Abnormal ECG When compared with ECG of 03-AUG-2018 19:06, Nonspecific T wave abnormality no longer evident in Inferior leads QT has shortened Confirmed by MD Delores, Tim ([id number]) on 12/13/2018 6:56:25 PM MUSE SYSTEM 12/13/2018 5:46 PM EDT 12/13/2018 6:56 PM EDT Anna Shah MD ECG ORDERABLES Performing Organization Address City/[facility]/ZIP Co de Phone Number MUSE SYSTEM * (ABNORMAL) Potassium (12/13/2018 3:40 PM EDT) Pathologist [facility] Potassium 7.2(Criti constance) 3.5 - 5.0 mmol/L [facility] Comment: Called by: ARACELI, Read back by: Rishabh Shen, Date/Time:12/13/18 17:17. Please note: ??Patients with WBC >100,000 may have falsely elevated Potassium levels. ??For accurate Potassium quantification in these patients send serum separator tube (gold top) for subsequent determinations. ??Contact the Clinical Chemistry Laboratory if there are any questions. Blood specimen (specimen) 12/13/2018 3:40 PM EDT 12/13/2018 3:54 PM EDT Narrative Resulting Agency Comment Spec In Lab Anna Shah MD CHEMISTRY ORDERABL ES [facility] [place] [address] documented in this encounter Visit Diagnoses Not on filedocumented in this encounter Admitting Diagnoses Diagnosis End stage chronic kidney disease documented in this encounter Administered Medications Inactive Administered Medications - up to 3 most recent administrations Medication Order MAR Action Action Date Dose Rate Site acetaminophen (TYLENOL) tablet 1,000 mg 1,000 mg, Oral, ONCE, 1 dose, On Wed12/13/18 at 1000, Administer with SIP of H2O only., Day of Surgery (Day of Procedure), Routine Given 12/13/2018 9:43 AM EDT 1,000 mg acetaminophen (TYLENOL) tablet 500 mg 500 mg, Oral, EVERY 4 HOURS PRN, Starting on Wed12/13/18 at 1243, Until Wed12/13/18 at 1507, Pain, For Mild Pain (1-3) or Fever., Maximum dose of acetaminophen is 4000 mg from all sources in 24 hours., Routine Given 12/13/2018 12:56 PM EDT 500 mg allopurinol (ZYLOPRIM) tablet 100 mg 100 mg, Oral, DAILY, First dose on Wed12/14/18 at 0900, Until Discontinued, Routine Given 12/14/2018 3:28 PM EDT 100 mg amLODIPine (NORVASC) tablet 10 mg 10 mg, Oral, DAILY, First dose on Wed12/14/18 at 0900, Until Discontinued, Routine Given 12/14/2018 8:37 AM EDT 10 mg aspirin EC tablet 81 mg 81 mg, Oral, DAILY, First dose on Wed12/13/18 at 1300, Until Discontinued, Routine Given 12/14/2018 3:27 PM EDT 81 mg Given 12/13/2018 12:57 PM EDT 81 mg calcium gluconate 1g in sodium chloride 0.9% 100mL 1 g, Intravenous, ONCE, 1 dose, On Wed12/13/18 at 1745, Administer over 6 Minutes, Warning Vesicant/Irritant Medication Patient must be on environmental monitoring technician when receiving calcium; calcium can exacerbate digoxin toxicity. Since the effect of calcium is transient, patients with hyperkalemia also require treatments to shift potassium into cells and increase potassium excretion. Infusion over 6 minutes - Bedside monitor required. New Bag 12/13/2018 6:15 PM EDT 1 g 1000 mL/hr carvedilol (COREG) tablet 12.5 mg 12.5 mg, Oral, 2 TIMES DAILY WITH MEALS, First dose on Wed12/13/18 at 1700, Until Discontinued, Hold morning dose 12/14/18, Routine Given 12/13/2018 4:49 PM EDT 12.5 mg dextrose 50% intravenous solution 50 mL 50 mL (25 g), Intravenous, ONCE, 1 dose, On Wed12/13/18 at 1745, Give 50 mL of dextrose 50% Intravenously immediately followed by regular insulin 10 units Intravenously, Routine Given 12/13/2018 6:10 PM EDT 50 mLs dilTIAZem (Cardizem CD) ER capsule 120 mg 120 mg, Oral, DAILY, First dose on Wed12/14/18 at 0900, Until Discontinued, DO NOT CRUSH OR OPEN Hold morning of 12/14/18, Routine Given 12/14/2018 3:28 PM EDT 120 mg fentaNYL 50 mcg/mL multi-dose injection 25-50 mcg, Intravenous, EVERY 5 MIN PRN, Starting on Wed12/13/18 at 2004, Until Wed12/14/18 at 1850, Pain, per unit protocol, - Start dose [...] supervision and verbal order., Angio/IR (Intra-Procedure), Routine heparin (porcine) injection 100-10,000 Units 100-10,000 Units, Intercatheter, ONCE PRN, 1 dose, Starting on Wed12/13/18 at 1735, Until Wed12/13/18 at 2310, Line Care, Catheter lock per catheter specified fill volume per dialysis protocol. For use in Dialysis only with direct provider supervision and verbal order., Dialysis (Intra-Procedure), Routine Given 12/13/2018 11:10 PM EDT 3,800 Units heparin (porcine) injection 100-10,000 Units 100-10,000 Units, Intercatheter, ONCE PRN, 1 dose, Starting on Wed12/14/18 at 0000, Until Wed12/14/18 at 1850, Line Care, Catheter lock per catheter specified fill volume per dialysis protocol. For use in Dialysis only with direct provider supervision and verbal order., Dialysis (Intra-Procedure), Routine hydrALAZINE (APRESOLINE) tablet 100 mg 100 mg, Oral, 3 TIMES DAILY, First dose on Wed12/13/18 at 1500, Until Discontinued, Routine Given 12/14/2018 3:27 PM EDT 100 mg Given 12/14/2018 12:48 AM EDT 100 mg Given 12/13/2018 3:23 PM EDT 100 mg insulin regular human VIAL injection 10 Units 10 Units, Intravenous, ONCE, 1 dose, On Wed12/13/18 at 1745, Give 50 mL of dextrose 50% Intravenously immediately followed by regular insulin 10 units Intravenously. Monitor BG one hour after insulin administration and then every two hours X 2 and PRN., Routine Given 12/13/2018 6:12 PM EDT 10 Units levETIRAcetam (KEPPRA) tablet 500 mg 500 mg, Oral, 2 TIMES DAILY, First dose on Wed12/13/18 at 1430, Until Discontinued, Routine Given 12/14/2018 3:27 PM EDT 500 mg Given 12/14/2018 12:48 AM EDT 500 mg levothyroxine (SYNTHROID) tablet 100 mcg 100 mcg, Oral, DAILY, First dose on Wed12/14/18 at 0600, Until Discontinued, Routine Given 12/14/2018 6:30 AM EDT 100 mcg lidocaine (XYLOCAINE) 10 mg/mL (1 %) injection 3 mg 3 mg (0.3 mL), Subcutaneous, ONCE PRN, 1 dose, Starting on Wed12/13/18 at 2004, Until Wed12/14/18 at 1850, for discomfort with PIV insertion, Day of Surgery (Day of Procedure), Routine losartan (COZAAR) tablet 100 mg 100 mg, Oral, EVERY MORNING, First dose on Wed12/14/18 at 0700, Until Discontinued, Hold 12/14/18, Routine Given 12/14/2018 3:28 PM EDT 100 mg naloxone (NARCAN) injection 0.1 mg 0.1 mg, Intravenous, EVERY 2 MIN PRN, Starting on Wed12/13/18 at 2004, Until Wed12/14/18 at 1850, Opioid Reversal, Give every 2 minutes PRN for opioid reversal, for respiratory rate less than 8 per minute, SpO2 less than 90% despite supplement O2, or patient unable to arouse. Maximum dose of 0.8 mg intra-procedure. , Angio/IR (Intra-Procedure), Routine ondansetron (ZOFRAN) injection 4-8 mg 4-8 mg, Intravenous, EVERY 8 HOURS PRN, Starting on Wed12/13/18 at 1403, Until Wed12/14/18 at 1850, Nausea, Start with 4mg and if ineffective in 30 minutes, give an additional 4mg ondansetron (ZOFRAN) tablet 4-8 mg 4-8 mg, Oral, EVERY 8 HOURS PRN, Starting on Wed12/13/18 at 1403, Until Wed12/14/18 at 1850, Nausea, Vomiting, If multiple antiemetics are ordered, use ondansetron first. PO Preferred. If patient unable to take PO, may give IV if ordered. May repeat times one in 45 minutes if ineffective. , Routine oxyCODONE (ROXICODONE) immediate release tablet 10-15 mg 10-15 mg, Oral, EVERY 4 HOURS PRN, Starting on Wed12/13/18 at 1506, Until Wed12/14/18 at 1850, Pain, severe pain (7-10), Initial dose 10mg. If pain control not adequate in 60 minutes, give additional 5mg, Routine oxyCODONE (ROXICODONE) immediate release tablet 5-10 mg 5-10 mg, Oral, EVERY 4 HOURS PRN, Starting on Wed12/13/18 at 1506, Until Wed12/14/18 at 1850, Pain, moderate pain (4-6), Initial dose 5mg. If pain control not adequate in 60 minutes, give additional 5mg, Routine pantoprazole (PROTONIX) tablet 20 mg 20 mg, Oral, 2 TIMES DAILY, First dose on Wed12/13/18 at 1430, Until Discontinued, DO NOT CRUSH OR OPEN Given 12/14/2018 3:27 PM EDT 20 mg Given 12/14/2018 12:49 AM EDT 20 mg sodium chloride 0.9 % flush 5 mL 5 mL, Intravenous, EVERY 12 HOURS, First dose on Wed12/13/18 at 2030, Until Discontinued, Day of Surgery (Day of Procedure), Routine sodium chloride 0.9 % flush 5-20 mL 5-20 mL, Intravenous, EVERY 1 MIN PRN, Starting on Wed12/13/18 at 2004, Until Wed12/14/18 at 1850, flush, Flush pertains to all indwelling lines. Flush per protocol found in the job aid using the link provided on this medication record., Day of Surgery (Day of Procedure), Routine sodium polystyrene (Kayexalate) (0.25 g/mL) oral liquid 15 g 15 g, Oral, EVERY 4 HOURS, 2 doses, First dose on Wed12/13/18 at 1745, Last dose on Wed12/13/18 at 2145, Use with caution in patients with renal failure and AVOID in volume depleted patients. Consider starting IV fluid. For the powdered product, add 60 mL of water to the container and shake. Shake well immediately prior to administration. Give within 24 hours of reconstituting., STAT Given 12/13/2018 6:21 PM EDT 15 g tacrolimus (PROGRAF) capsule 1 mg 1 mg, Oral, 2 TIMES DAILY, First dose on Wed12/13/18 at 1430, Until Discontinued, Routine Given 12/14/2018 12:49 AM EDT 1 mg documented in this encounter Active and Recently Administered Medications Times are shown in EDT. Scheduled Medication Order 12/12/2018 12/13/2018 12/14/2018 acetaminophen (TYLENOL) tablet 1,000 mg (COMPLETED) 1,000 mg, Oral, ONCE, 1 dose, On Wed12/13/18 at 1000, Administer with SIP of H2O only., Day of Surgery (Day of Procedure), Routine 0943 (Given - Provider: Kelly Rosa RN) allopurinol (ZYLOPRIM) tablet 100 mg 100 mg, Oral, DAILY, First dose on Wed12/14/18 at 0900, Until Discontinued, Routine 1528 (Given - Provid er: Rachel Zayas RN) amLODIPine (NORVASC) tablet 10 mg 10 mg, Oral, DAILY, First dose on Wed12/14/18 at 0900, Until Discontinued, Routine 0837 (Given - Provid er: Oliver Link RN) aspirin EC tablet 81 mg 81 mg, Oral, DAILY, First dose on Wed12/13/18 at 1300, Until Discontinued, Routine 1257 (Given - Provider: Patty Vargas RN) 1527 (Given - Provider: Rachel Zayas, SAVANNA) calcium gluconate 1g in sodium chloride 0.9% 100mL (COMPLETED) 1 g, Intravenous, ONCE, 1 dose, On Wed12/13/18 at 1745, Administer over 6 Minutes, Warning Vesicant/Irritant Medication Patient must be on environmental monitoring technician when receiving calcium; calcium can exacerbate digoxin toxicity. Since the effect of calcium is transient, patients with hyperkalemia also require treatments to shift potassium into cells and increase potassium excretion. Infusion over 6 minutes - Bedside monitor required. 181 (New Bag - Provider: Odalis Shen RN)182 (Stopped - Provider: Odalis Shen RN) carvedilol (COREG) tablet 12.5 mg 12.5 mg, Oral, 2 TIMES DAILY WITH MEALS, First dose on Wed12/13/18 at 1700, Until Discontinued, Hold morning dose 12/14/18, Routine 1649 (Given - Provider: Megan Eugene RN) 0800 (Not Given - Provider: Rachel Zayas, SAVANNA - Reason: Per MD Order) clindamycin (CLEOCIN) 900mg in dextrose 5% 50mL (COMPLETED) 900 mg, Intravenous, ONCE, 1 dose, On Wed12/13/18 at 1000, Administer over 30 Minutes, Give over 30-60 minutes. Do not exceed 30mg/minute. Redose every 6 hours if CrCl is greater than 20. Redose every 6 hours if CrCl is less than 20., Day of Surgery (Day of Procedure), Indication for (Active or Suspected): Prophylaxis 1016 (Given - Provider: Naz Chilel MD) dextrose 50% intravenous solution 50 mL (COMPLETED)(Linked Group 1) 50 mL (25 g), Intravenous, ONCE, 1 dose, On Wed12/13/18 at 1745, Give 50 mL of dextrose 50% Intravenously immediately followed by regular insulin 10 units Intravenously, Routine 1809 (Given - Provider: Odalis Shen, SAVANNA) dilTIAZem (Cardizem CD) ER capsule 120 mg 120 mg, Oral, DAILY, First dose on Wed12/14/18 at 0900, Until Discontinued, DO NOT CRUSH OR OPEN Hold morning of 12/14/18, Routine 1528 (Given - Provid er: Rachel Zayas, SAVANNA) hydrALAZINE (APRESOLINE) tablet 100 mg 100 mg, Oral, 3 TIMES DAILY, First dose on Wed12/13/18 at 1500, Until Discontinued, Routine 1523 (Given - Provider: Odalis Shen, SAVANNA) 004 (Given - Provider: Asim Meneses, SAVANNA)0900 (Not Given - Provider: Rachel Zayas RN - Reason: See comment - Comment: Pt to dialysis)152 (Given - Provider: Rachel Zayas, SAVANNA) insulin regular human VIAL injection 10 Units (COMPLETED)(Linked Group 1) 10 Units, Intravenous, ONCE, 1 dose, On Wed12/13/18 at 1745, Give 50 mL of dextrose 50% Intravenously immediately followed by regular insulin 10 units Intravenously. Monitor BG one hour after insulin administration and then every two hours X 2 and PRN., Routine 1811 (Given - Provider: Odalis Shen, SAVANNA) levETIRAcetam (KEPPRA) tablet 500 mg 500 mg, Oral, 2 TIMES DAILY, First dose on Wed12/13/18 at 1430, Until Discontinued, Routine 1430 (Not Given - Provider: Odalis Shen, SAVANNA - Reason: See comment - Comment: pt states he took this already today) 004 (Given - Provider: Asim Meneses, SAVANNA)152 (Given - Provider: Rachel Zayas, SAVANNA) levothyroxine (SYNTHROID) tablet 100 mcg 100 mcg, Oral, DAILY, First dose on Wed12/14/18 at 0600, Until Discontinued, Routine 0630 (Given - Provid er: Asim Meneses RN) lidocaine (XYLOCAINE) 10 mg/mL (1 %) injection 10 mg 10 mg, Subcutaneous, ONCE, 1 dose, On Wed12/13/18 at 2029, For use in Interventional Radiology (IR) only for procedure with direct provider supervision and verbal order., Angio/IR (Intra-Procedure), Routine 2029 (Not Given - Provider: Asim Meneses RN - Reason: See comment - Comment: dialysis med) lidocaine-EPINEPHrine 1 %-1:100,000 injection 50 mL 50 mL, Intradermal, ONCE, 1 dose, On Wed12/13/18 at 2029, For use in Interventional Radiology (IR) only for Radiofrequency Ablation of Saphenous Vein procedure with direct provider supervision and verbal order., Angio/IR (Intra-Procedure), Routine 2029 (Not Given - Provider: Asim Meneses RN - Reason: See comment - Comment: dailysis med) losartan (COZAAR) tablet 100 mg 100 mg, Oral, EVERY MORNING, First dose on Wed12/14/18 at 0700, Until Discontinued, Hold 12/14/18, Routine 1528 (Given - Provid er: Rachel Zayas RN) pantoprazole (PROTONIX) tablet 20 mg 20 mg, Oral, 2 TIMES DAILY, First dose on Wed12/13/18 at 1430, Until Discontinued, DO NOT CRUSH OR OPEN 1430 (Not Given - Provider: Odalis Shen RN - Reason: See comment - Comment: pt states that he took this already) 0049 (Given - Provider: Asim Meneses RN)1527 (Given - Provider: Rachel Zayas, SAVANNA) sodium chloride 0.9 % flush 5 mL 5 mL, Intravenous, EVERY 12 HOURS, First dose on Wed12/13/18 at 2030, Until Discontinued, Day of Surgery (Day of Procedure), Routine 2029 (Not Given - Provider: Asim Meneses RN - Reason: See comment - Comment: HD occuring at this time) 0830 (Not Given - Provider: Rachel Zayas RN - Reason: See comment - Comment: Pt to dialysis) sodium polystyrene (Kayexalate) (0.25 g/mL) oral liquid 15 g (CANCELED) 15 g, Oral, EVERY 4 HOURS, 2 doses, First dose on Wed12/13/18 at 1745, Last dose on Wed12/13/18 at 2145, Use with caution in patients with renal failure and AVOID in volume depleted patients. Consider starting IV fluid. For the powdered product, add 60 mL of water to the container and shake. Shake well immediately prior to administration. Give within 24 hours of reconstituting., STAT 1821 (Given - Provider: Odalis Shen RN)2145 (Not Given - Provider: Asim Meneses RN - Reason: Medication Discontinued) tacrolimus (PROGRAF) capsule 1 mg 1 mg, Oral, 2 TIMES DAILY, First dose on Wed12/13/18 at 1430, Until Discontinued, Routine 1430 (Not Given - Provider: Odalis Shen RN - Reason: See comment - Comment: pt states that he took this already today) 0049 (Given - Provider: Asim Meneses RN)0900 (Due) PRN Medication Order 12/12/2018 12/13/2018 12/14/2018 acetaminophen (TYLENOL) tablet 1,000 mg 1,000 mg, Oral, EVERY 6 HOURS PRN, Starting on Wed12/13/18 at 1243, Until Wed12/14/18 at 1850, Pain, Maximum dose of acetaminophen is 4000 mg from all sources in 24 hours., Routine acetaminophen (TYLENOL) tablet 500 mg (CANCELED) 500 mg, Oral, EVERY 4 HOURS PRN, Starting on Wed12/13/18 at 1243, Until Wed12/13/18 at 1507, Pain, For Mild Pain (1-3) or Fever., Maximum dose of acetaminophen is 4000 mg from all sources in 24 hours., Routine 1256 (Given - Provider: Marky Vargas RN) fentaNYL 50 mcg/mL multi-dose injection 25-50 mcg, Intravenous, EVERY 5 MIN PRN, Starting on Wed12/13/18 at 2004, Until Wed12/14/18 at 1850, Pain, per unit protocol, - Start dose [...] supervision and verbal order., Angio/IR (Intra-Procedure), Routine heparin (porcine) injection 100-10,000 Units (COMPLETED) 100-10,000 Units, Intercatheter, ONCE PRN, 1 dose, Starting on Wed12/13/18 at 1735, Until Wed12/13/18 at 2310, Line Care, Catheter lock per catheter specified fill volume per dialysis protocol. For use in Dialysis only with direct provider supervision and verbal order., Dialysis (Intra-Procedure), Routine 2310 (Given - Provider: Erwin Hudson RN - Comment: 1900 U per port) heparin (porcine) injection 100-10,000 Units 100-10,000 Units, Intercatheter, ONCE PRN, 1 dose, Starting on Wed12/14/18 at 0000, Until Wed12/14/18 at 1850, Line Care, Catheter lock per catheter specified fill volume per dialysis protocol. For use in Dialysis only with direct provider supervision and verbal order., Dialysis (Intra-Procedure), Routine lidocaine (XYLOCAINE) 10 mg/mL (1 %) injection 3 mg 3 mg (0.3 mL), Subcutaneous, ONCE PRN, 1 dose, Starting on Wed12/13/18 at 2004, Until Wed12/14/18 at 1850, for discomfort with PIV insertion, Day of Surgery (Day of Procedure), Routine naloxone (NARCAN) injection 0.1 mg 0.1 mg, Intravenous, EVERY 2 MIN PRN, Starting on Wed12/13/18 at 2004, Until Wed12/14/18 at 1850, Opioid Reversal, Give every 2 minutes PRN for opioid reversal, for respiratory rate less than 8 per minute, SpO2 less than 90% despite supplement O2, or patient unable to arouse. Maximum dose of 0.8 mg intra-procedure. , Angio/IR (Intra-Procedure), Routine ondansetron (ZOFRAN) injection 4-8 mg(Linked Group 2) 4-8 mg, Intravenous, EVERY 8 HOURS PRN, Starting on Wed12/13/18 at 1403, Until Wed12/14/18 at 1850, Nausea, Start with 4mg and if ineffective in 30 minutes, give an additional 4mg ondansetron (ZOFRAN) tablet 4-8 mg(Linked Group 2) 4-8 mg, Oral, EVERY 8 HOURS PRN, Starting on Wed12/13/18 at 1403, Until Wed12/14/18 at 1850, Nausea, Vomiting, If multiple antiemetics are ordered, use ondansetron first. PO Preferred. If patient unable to take PO, may give IV if ordered. May repeat times one in 45 minutes if ineffective. , Routine oxyCODONE (ROXICODONE) immediate release tablet 10-15 mg(Linked Group 3) 10-15 mg, Oral, EVERY 4 HOURS PRN, Starting on Wed12/13/18 at 1506, Until Wed12/14/18 at 1850, Pain, severe pain (7-10), Initial dose 10mg. If pain control not adequate in 60 minutes, give additional 5mg, Routine oxyCODONE (ROXICODONE) immediate release tablet 5-10 mg(Linked Group 3) 5-10 mg, Oral, EVERY 4 HOURS PRN, Starting on Wed12/13/18 at 1506, Until Wed12/14/18 at 1850, Pain, moderate pain (4-6), Initial dose 5mg. If pain control not adequate in 60 minutes, give additional 5mg, Routine sodium chloride 0.9 % flush 5-20 mL 5-20 mL, Intravenous, EVERY 1 MIN PRN, Starting on Wed12/13/18 at 2004, Until Wed12/14/18 at 1850, flush, Flush pertains to all indwelling lines. Flush per protocol found in the job aid using the link provided on this medication record., Day of Surgery (Day of Procedure), Routine Linked Groups Order Group 1: dextrose 50% intravenous solution 50 mL (COMPLETED)Jump to med 50 mL (25 g), Intravenous, ONCE, 1 dose, On Wed12/13/18 at 1745, Give 50 mL of dextrose 50% Intravenously immediately followed by regular insulin 10 units Intravenously, Routine And insulin regular human VIAL injection 10 Units (COMPLETED)Jump to med 10 Units, Intravenous, ONCE, 1 dose, On Wed12/13/18 at 1745, Give 50 mL of dextrose 50% Intravenously immediately followed by regular insulin 10 units Intravenously. Monitor BG one hour after insulin administration and then every two hours X 2 and PRN., Routine And POCT Fingerstick Glucose (CANCELED) STAT, EVERY HOUR, First occurrence on Wed12/13/18 at 1800, Last occurrence on Wed12/13/18 at 1800, For 1 occurrence, Check blood glucose one hour after insulin administration. And POCT Fingerstick Glucose (CANCELED) Routine, EVERY 2 HOURS, First occurrence on Wed12/13/18 at 1800, Last occurrence on Wed12/13/18 at 2000, For 2 occurrences, Check blood glucose two and four hours after the last STAT blood glucose check Group 2: ondansetron (ZOFRAN) tablet 4-8 mgJump to med 4-8 mg, Oral, EVERY 8 HOURS PRN, Starting on Wed12/13/18 at 1403, Until Wed12/14/18 at 1850, Nausea, Vomiting, If multiple antiemetics are ordered, use ondansetron first. PO Preferred. If patient unable to take PO, may give IV if ordered. May repeat times one in 45 minutes if ineffective. , Routine Or ondansetron (ZOFRAN) injection 4-8 mgJump to med 4-8 mg, Intravenous, EVERY 8 HOURS PRN, Starting on Wed12/13/18 at 1403, Until Wed12/14/18 at 1850, Nausea, Start with 4mg and if ineffective in 30 minutes, give an additional 4mg Group 3: oxyCODONE (ROXICODONE) immediate release tablet 5-10 mgJump to med 5-10 mg, Oral, EVERY 4 HOURS PRN, Starting on Wed12/13/18 at 1506, Until Wed12/14/18 at 1850, Pain, moderate pain (4-6), Initial dose 5mg. If pain control not adequate in 60 minutes, give additional 5mg, Routine Or oxyCODONE (ROXICODONE) immediate release tablet 10-15 mgJump to med 10-15 mg, Oral, EVERY 4 HOURS PRN, Starting on Wed12/13/18 at 1506, Until Wed12/14/18 at 1850, Pain, severe pain (7-10), Initial dose 10mg. If pain control not adequate in 60 minutes, give additional 5mg, Routine documented in this encounter Care Teams Tire Specialist Relationship Specialty Start Date End Date Carroll Fuentes DO [address] [place] [address] PCP - General 09/23/11 10/20/22 documented as of this encounter
--- OUTSIDE RECORDS SUMMARY | 2024-04-22 10:54 | XMS_ITS | Encounter Summary ---
Author Organization [facility] [address] Care Team Providers Care Mobile Engineer Name Role Phone AlfredoCarroll allison Primary Care Provider Reason for Visit * Auth/Cert Specialty Diagnoses / Procedures Referred By Shashi ko Referred To Contact Diagnoses ESRD on dialysis Procedures PRO CREAT AV FISTULA, NON-AUTOGENOUS GRAFT PLACEMENT, AV HEMODIALYSIS GRAFT, SYNTHETIC GRAFT, UPPER EXTREMITY (WRVU 12.03) Referral ID Status Reason Start Date Expiration Date Visits Re quested Visits Authorized [id number] 1 1 Encounter Details Date Type Department Care Team (Latest Contact Info) Description 12/13/2018 8:43 AM EDT - 12/14/2018 4:50 PM EDT Hospital Encounter 3 [place] [id number] Anna Shah MD [address] [place] [id number] Hyperkalemia; End stage chronic kidney disease Discharge Disposition: Home with VNA Social History Tobacco Use Types Packs/Day Years [...] Sign Reading Time Taken Comments Blood Pressure 168/95 12/14/2018 2:29 PM EDT Pulse 63 12/14/2018 4:05 AM EDT Temperature 37.2 ??C (99 ??F) 12/14/2018 2:29 PM EDT Respiratory Rate 18 12/14/2018 2:29 PM EDT Oxygen Saturation 94% 12/14/2018 2:29 PM EDT Inhaled Oxygen Concentration - - Weight - - Height - - Body Mass Index - - documented in this encounter Discharge Summaries * Thelma Solitario MD - 12/14/2018 3:21 PM EDT Inpatient - Discharge Summary Patient Name: Christy Ram Patient Age: 58 y.o. Birthdate: 1960 Admit [...] GFR 15-29 ml/min ??? 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 shelter current use of immunosuppressive drug ??? H/O [...] Pt will resume his regular dialysis at [facility] on Wednesday12/16/2018 to resume normal schedule. [...] Studies: none Discharge Conditions/Prognosis: Good Discharge to: [facility] in [facility]. Discharge Medications: Your Medications New Medications Dose [...] For any problems or questions please call [phone] For issues on weeknights after 5pm and weekends please call [phone] and ask for the Vascular Fellow bus and sys integration senior manager. YEIMY Fallon, agricultural commodities inspector Nurse Clinician General Instructions None Future Appointments and Orders Future Orders Complete By Expires AVF/Established Access Evaluation [VAS61 Custom] 01/12/2019 03/15/2019 Process Instructions: There is no in-house vascular laborer syrup machine available on weeknights (5pm-8am), weekends, or holidays. IF THIS IS A REQUEST FOR AN EMERGENT STUDY DURING THOSE HOURS, please have the senior provider responsible for the patient page the Vascular Surgery Fellow/Senior Resident bus and sys integration senior manager to discuss options. Scheduling Instructions: Questions: Laterality: Right Which extremity?: Upper Indication for study/signs & symptoms: s/p Right brachioaxillary graft with 7 mm - 4 mm taperedAccuseal (12/13/18) Question to be answered: ?maturation At which DH location will this be performed?: [facility] AVF/Established Access Evaluation [VAS61 Custom] 01/13/2019 12/15/2019 Process Instructions: There is no in-house vascular laborer syrup machine available on weeknights (5pm-8am), weekends, or holidays. IF THIS IS A REQUEST FOR AN EMERGENT STUDY DURING THOSE HOURS, please have the senior provider responsible for the patient page the Vascular Surgery Fellow/Senior Resident bus and sys integration senior manager to discuss options. Scheduling Instructions: Questions: Laterality: Right Which extremity?: Upper Indication for study/signs & symptoms: s/p Right brachioaxillary graft with 7 mm - 4 mm taperedAccuseal (12/13/18) Question to be answered: patency At which DH location will this be performed?: [facility] Discharge References/Attachments: Discharge References/Attachments None Electronically Signed [...] For any problems or questions please call [phone] For issues on weeknights after 5pm and weekends please call [phone] and ask for the Vascular Fellow bus and sys integration senior manager. YEIMY Fallon, agricultural commodities inspector Nurse Clinician documented in this encounter Medications [...] 12/14/2018 4:50 PM EDT Office of Care Management/Global Consumer Sector Vice President Name: Christy Ram Presenting Issue: Outpatient Dialysis Update Notified [facility] HD unit that patient is scheduled for discharge yesterday. The dialysis unit is ready for the patient on Wednesday at 7:45am. The patient will have a schedule of mon/wed/fri at 7:45. Plan: Discharge Summary and last acute dialysis records will be faxed to the medical clinic manager upon discharge. This office will be available to the patient, Videogame Designer-RN and Senior Director Creative Services for further assistance. Dialysis Unit Address: [address] [address] \ ILDA WONG RN Global Consumer Sector Vice President * Tana Briones, JULIAN - 12/14/2018 4:22 PM EDT Nutrition Initial Note Christy Ginna Ram is a 58 y.o. male Reason for [...] ml/min N18.4 ??? 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 computer terminal operator current use of immunosuppressive drug Z79.899 ??? [...] 11/29/18: 84.2 kg (185 lb 9.6 oz). [place] Body Weight (IBW): [place] body weight: 73 kg (160 lb 15 [...] in July. During his July admission this group underwriter saw him and reviewed renal diet information with him. Pt reports that he currently lives in a assisted where he does not always have options in his meals, but tries to mostly make bianchi choices and eat smaller amounts of foods that he knows are high in potassium. Reviewed high potassium foods again with him and provided him with a list of potassium content from the nutrition care manual. JERICHO LORENZO Beeper #: [phone] * Oliver Link RN - 12/14/2018 4:13 [...] Transport initiated/confirmed: Spoke with Maria E from [facility] [[email or web address]] who confirmed a tow car driver will arrive to pick patient up at discharge today from the Main entrance at 4:00pm en route to home address. * Britany Stuart RN - 12/14/2018 2:15 PM EDT The patient/employment program representative has been provided a list of Home Health Agencies/DME vendors which servetheir preferred geographic area. A letter describing our affiliations was reviewed with them and they were educated about their right to choose where referrals are placed. Patient requests referral back to: [facility] for HD. Schedule is MW. Next HD s/b Wednesday. Expected date of discharge: 12/14. Referral routed to the Global Consumer Sector Vice President for matching with agency/vendor and to provide [...] - 12/13/2018 6:06 PM EDT ID: Christy Ram is a 58 y.o. male with [...] IV Diagnostics: no new diagnostics Assessment/Plan: Mr. Ram is a 58 yo with ESRD admitted in [facility] s/p AVG in [facility] now hyperkalemic at 7.2. IV [...] Thank you! Angely Biswas RN Life Safety/ICU [phone] or pgr [phone] * Padmini Ruiz RN - 12/13/2018 4:24 PM EDT CM asked by Dr. Jhonny Solitario to arrange transportation home for this pt. Pt is post operative today for: Right brachioaxillary graft with 7 mm - 4 mm tapered Accuseal. Pt lives at the [facility], a Residential care facility in [facility]. I spoke with RA Guadalupe at [facility] who informed me that pt is transported by [facility] [[email or web address]] for all appointments and dialysis . Pt is picked up for dialysis at 7:30 am. I called [facility] at . They will send a tow car driver by the name of Junito to the Main Entrance of [facility] this evening at 18:30. I will update pt's nurse Litzy and Anayeli via phone calls. Dr. Solitario aware. Padmini Ruiz RN [address] [place] Videogame Designer Pager: [phone] * Megan Eugene RN - 12/13/2018 1:24 PM EDT 1320 Report received from Aby ROGERS) in PACU documented in this encounter H&P Notes * Rasta Hernández MD - 12/11/2018 12:37 PM EDT Vascular Surgery History and Physical Planned Procedure: Right arm AVG placement HPI: Christy Ram is a 58 y.o. male with [...] ml/min N18.4 ??? 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 shelter current use of immunosuppressive drug Z79.899 ??? [...] education level: None Occupational History ??? 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 [...] transplant (transplant on 11/26/02). Outpatient HD at [facility]. - Access: Right IJ TDC (right brachioaxillary [...] any questions. 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 [...] - Tunneled Line 07/30/2018 Walt Lin MD [facility] INTERVENTIONL RAD ??? IR DIALYSIS ACCESS - TUNNELED LINE 08/30/2018 IR Dialysis Access - Tunneled Line 08/30/2018 Erwin Simon APRN [facility] INTERVENTIONL RAD ??? KIDNEY TRANSPLANT KIDNEY TRANSPLANT / RECIPIENT/LT Procedure Date: 11/26/2002 ? ? PRO DEBRIDEMENT SUBCUTANEOUS TISSUE 20 SQCM/< Left 02/20/2016 DEBRIDEMENT SKIN AND SUBCU, HEAD/NECK performed by Miguel Angel Moreno MD at [facility] MAIN OR ??? PRO DECOMPRESS FOREARM, BRACH ART EXPLOR Left 04/06/2018 FASCIOTOMY, FOREARM, WITH BRACHIAL ARTERY EXPLORATION (WRVU 8.41) performed by Lida Peter MDat [facility] OR ??? PRO DIRECT REPAIR RUPTURED ANEURYSM, AXILLO-BRACHIAL ARM INCIS Left 04/06/2018 @REPAIR, RUPTURED AXILLARY OR BRACHIAL ARTERY ANEURYSM BY ARM INCISION (WRVU *) performed by Lida Peter MD at [facility] OR ??? PRO EXC PAROTD, TOTAL, UNILAT RAD NECK Left 02/05/2016 @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, TOTAL, WITH UNILATERAL RADICAL NECK DISSECTION performed by Miguel Angel Moreno MD at [facility] OR ??? PRO EXC SKIN MALIG 3.1-4CM FACE, FACIAL Left 02/05/2016 EXC MALIGNANT LESION, 3.1 TO 4.0CM, FACE performed by Miguel Angel Moreno MD at [facility] OR ? ? PRO EXC SKIN MALIG >4CM TRUNK, ARM, LEG 04/19/2012 EXC MALIGNANT LESION, MICHAEL > 4.0CM, TRUNK performed by SABRINA SANCHEZ at [facility] OR ??? PRO LAP, RADICAL NEPHRECTOMY Left 05/31/2017 @LAPAROSCOPY, RADICAL NEPHRECTOMY (WRVU 25.06) performed by Jax Mills MD at [facility] MAIN OR ??? PRO LIGATN ANGIOACCESS AV FISTULA Left 04/19/2018 LIGATION OR BANDING OF HEMODIALYSIS FISTULA OR GRAFT UPPER EXTREMITY (WRVU 6.25) performed by Odalis Elias MD at [facility] MAIN OR ??? PRO NEGATIVE [...] 15.83) performed by Lida Peter MD at [facility] MAIN OR ??? PRO RELIEVE PRESSURE ON NERVE(S) Left 04/06/2018 (MSURG) CARPAL TUNNEL (WRVU 4.82) performed by Silviano Sparks MD at [facility] MAIN OR ??? PRO REPAIR INTERMEDIATE S/A/T/E 2.6-7.5 CM 04/19/2012 REPAIR INTERMEDIATE WOUND, (NO HANDS OR FEET) 2.6 TO 7.5CM, UPPER EXTREMITY performed by SABRINA SANCHEZ at [facility] OR ? ? PRO REPAIR INTERMEDIATE S/A/T/E > 30.0 CM Left 04/14/2018 REPAIR INTERMEDIATE WOUND, (NO HANDS OR FEET) >30.0CM, UPPER EXTREMITY (WRVU 5) performed by Yimi Easton MD at [facility] MAIN OR ??? PRO REVISE MEDIAN N/CARPAL TUNNEL SURG Left 04/06/2018 MEDIAN NERVE DECOMPRESSION (CARPAL TUNNEL RELEASE) (WRVU 4.97) performed by Lida Peter MD [facility] OR ? ? PRO SPLIT GRFT TRUNK, ARM, LEG <100SQCM Left 04/26/2018 SPLIT THICK SKIN GRAFT,100 SQ CM OR LESS, ARMS (WRVU 9.9) performed by Silviano Sparks MD at [facility] MAIN OR ? ? PRO SPLIT GRFT, HEAD, FAC, HAND, FEET <100SQCM N/A 02/20/2016 SPLIT THICKNESS SKIN SPLIT GRAFT,100SQ CM OR LESS, NECK performed by Miguel Angel Moreno MD at [facility] MAIN OR ??? PRO SPLIT GRFT, TRUNK, ARM, LEG EA 100SQCM N/A 04/26/2018 EA.ADDITIONAL 100SQ.CM STSG (WRVU 1.72) performed by Silviano Sparks MD at [facility] MAIN OR ??? PRO UPPER GI ENDOSCOPY, BIOPSY N/A 05/13/2017 EGD WITH BIOPSY (WRVU 2.49) performed by Aditya Barrera MD at [facility] ENDOSCOPY ??? PRO VASCULAR SURGERY PROCEDURE UNLIST Left 11/20/2015 LIGATION\REPAIR AV FISTULA performed by Camilo Ireland MD at [facility] MAIN OR ??? PRO VASCULAR SURGERY PROCEDURE UNLIST Left 11/20/2015 EXCISION VEIN FROM HAND performed by Camilo Ireland MD at [facility] MAIN OR ??? US RENAL TRANSPLANT BIOPSY 12/31/2010 ??? US RENAL TRANSPLANT RIGHT Right 06/04/2018 US Renal Transplant Right 06/04/2018 [facility] RAD ULTRASOUND Family History Problem Relation Age [...] CBC: Recent Labs 11/29/18 0945 08/03/18 1909 07/29/182135 WBC 4.8 4.7 3.8* HGB 11.8* 9.2* [...] transplant (transplant on 11/26/02). Outpatient HD at [facility]. - Access: Right IJ TDC (right brachioaxillary [...] Shah MD - 12/13/2018 12:17 PM EDT [facility] Operative Note Patient Name: Christy Ram : 1960 MR#: [id number] Case Date: 12/13/2018 Date of Operation: 12/13/2018. [...] Implant Name Type Inv. Item Serial No. Authorization Coordinator Lot No. LRB No. Used Action GRAFT,ACUSEAL,TPR,[id number]) - [id number] IMPLANTS GRAFT,ACUSEAL,TPR,[id number] [employer] Right 1 Implanted Indications for Procedure: Christy Ram is a 58 y.o. male who presents [...] AVF/Established Access Evaluation (12/29/2018 9:16 AM EDT) Pathologist [facility] Text Report Department: Vascular Surgery Lab Patient: [id number] (ARNOL, CHRISTY) CPT: 26695 ICD10: N18.6 Referring Physician: ANNA SHAH ?? [...] CHEMISTRY ORDERABL ES [facility] [place] [address] * (ABNORMAL) Basic Metabolic Panel (non-fasting) (12/14/2018 [...] of body mass or the acutely ill. http://WorldDesk/[facility] eGFR 13(L) >=60 mL/min/1. 73 m?? [facility] Comment: The eGFR was calculated using the CKD-EPI equation. As with all creatinine based estimates of kidney function, eGFR values calculated with the CKD-EPI equation are not accurate in patients with acute kidney failure, extremes of body mass or the acutely ill. http://WorldDesk/[facility] Blood specimen (specimen) 12/14/2018 4:39 AM EDT 12/14/2018 5:01 AM EDT Narrative Resulting Agency Comment Spec In Lab Anna Sahh MD CHEMISTRY ORDERABL ES [facility] [place] [address] * POCT Glucose (12/13/2018 8:32 PM EDT) Glucose, POC 134 65 - 199 mg/dL [facility] Comment: Supplemental ranges: <140 mg/dL before meals <180 mg/dL all other times of the day Blood specimen (specimen) 12/13/2018 8:32 PM EDT 12/13/2018 8:32 PM EDT Anna Shah MD POINT OF CARE TEST ORDERABLES [facility] [place] [address] * (ABNORMAL) POCT Glucose (12/13/2018 7:51 PM EDT) Glucose, POC 56(L) 65 - 199 mg/dL [facility] Comment: Supplemental ranges: <140 mg/dL before meals <180 mg/dL all other times of the day Blood specimen (specimen) 12/13/2018 7:51 PM EDT 12/13/2018 7:51 PM EDT Anna Shah MD POINT OF CARE TEST ORDERABLES [facility] [place] [address] * (ABNORMAL) POCT Glucose (12/13/2018 7:20 PM EDT) Glucose, POC 54(Critica l) 65 - 199 mg/dL [facility] Comment: Supplemental ranges: <140 mg/dL before meals <180 mg/dL all other times of the day Blood specimen (specimen) 12/13/2018 7:20 PM EDT 12/13/2018 7:20 PM EDT Anna Shah MD POINT OF CARE TEST ORDERABLES Performing Organization Address [facility] Co de Phone Number [facility] [place] [address] * (ABNORMAL) POCT Glucose (12/13/2018 7:18 PM EDT) Glucose, POC 38(Critica l) 65 - 199 mg/dL [facility] Comment: Supplemental ranges: <140 mg/dL before meals <180 mg/dL all other times of the day Blood specimen (specimen) 12/13/2018 7:18 PM EDT 12/13/2018 7:18 PM EDT Anna Shah MD POINT OF CARE TEST ORDERABLES [facility] [place] [address] * (ABNORMAL) Hemogram (12/13/2018 6:32 PM EDT) White Blood Cell 4.8 4.0 - 9.5 [...] HOSPITAL LABORATORY Platelet 172 145 - 357 x10(3)/[facility] LABORATORY RDW Standard Deviation 59.7(H) 36.0 - 45.0 [facility] LABORATORY RDW coefficient of variation 17.5(H) 11.4 - 13.8 % [facility] Mean Platelet Volume 9.1 7.6 - 12.9 [facility] LABORATORY NRBC% auto 0.0 % [facility] LABORATORY NRBC Absolute 0.000 0.000 - 0.000 x10(3)/ L [facility] Blood specimen (specimen) 12/13/2018 6:32 PM EDT 12/13/2018 7:33 PM EDT Narrative Resulting Agency Comment Spec In Lab Carroll Baires MD HEMATOLOGY ORDERABLE S [facility] [place] [address] * (ABNORMAL) Basic Metabolic Panel (non-fasting) (12/13/2018 6:16 PM EDT) Pathologist [facility] Glucose 123 65 - 199 mg/dL [facility] Comment:Diabetes: >=200 mg/d L plus symptoms Blood Urea Nitrogen 55(H) 10 - 20 mg/dL [facility] Creatinine 6.94(H) 0.80 - 1.50 mg/dL [facility] Sodium 134(L) 135 - 145 mmol/L [facility] Potassium 7.2(Criti constance) 3.5 - 5.0 mmol/L [facility] Comment: Called by: dominik, Read back by: Odalis Shen, Date/Time:12/13/18 19:00. [...] of body mass or the acutely ill. http://WorldDesk/[facility] eGFR 9(L) >=60 mL/min/1. 73 m?? [facility] Comment: The eGFR was calculated using the CKD-EPI equation. As with all creatinine based estimates of kidney function, eGFR values calculated with the CKD-EPI equation are not accurate in patients with acute kidney failure, extremes of body mass or the acutely ill. http://WorldDesk/[facility] Blood specimen (specimen) 12/13/2018 6:16 PM EDT 12/13/2018 6:23 PM EDT Narrative Resulting Agency Comment Spec In Lab Carroll Baires MD CHEMISTRY ORDERABLES [facility] [place] [address] * Hepatitis B Surface Antigen (12/13/2018 6:16 PM EDT) Hepatitis B Surface Antigen Negative Negative [facility] Blood specimen (specimen) 12/13/2018 6:16 PM EDT 12/13/2018 6:23 PM EDT Narrative Resulting Agency Comment Spec In Lab Carorll Baires MD CHEMISTRY ORDERABLES Performing Organization Address [facility] Co de Phone Number [facility] [place] [address] * EKG 12 Lead (12/13/2018 5:46 PM EDT) Pathologist [facility] Ventricular rate 46 BPM MUSE SYSTEM Atrial Rate 46 BPM MUSE SYSTEM P-R Interval 174 ms MUSE SYSTEM QRS Duration 100 ms MUSE SYSTEM Q-T Interval 468 ms MUSE SYSTEM QTC Calculated (Bezet) 409 ms MUSE SYSTEM Calculated P [place] 71 degrees MUSE SYSTEM Calculated R [place] 78 degrees MUSE SYSTEM Calculated T [place] 51 degrees MUSE SYSTEM INTERPRETATION Marked sinus bradycardia Abnormal ECG When compared with ECG of 03-AUG-2018 19:06, Nonspecific T wave abnormality no longer evident in Inferior leads QT has shortened Confirmed by MD Delores, Tim ([id number]) on 12/13/2018 6:56:25 PM MUSE SYSTEM 12/13/2018 5:46 PM EDT 12/13/2018 6:56 PM EDT Anna Shah MD ECG ORDERABLES Performing Organization Address [facility] Co de Phone Number MUSE SYSTEM * (ABNORMAL) Potassium (12/13/2018 3:40 PM EDT) Pathologist [facility] Potassium 7.2(Criti constance) 3.5 - 5.0 mmol/L [...] CHEMISTRY ORDERABL ES [facility] [place] [address] documented in this encounter Visit Diagnoses Diagnosis Hyperkalemia Hyperpotassemia End stage chronic kidney disease End stage chronic kidney disease documented in this encounter Admitting Diagnoses Diagnosis End [...] Warning Vesicant/Irritant Medication Patient must be on chicken boner when receiving calcium; calcium can exacerbate digoxin [...] Discontinued, Routine 1257 (Given - Provider: Patty Vargas, SAVANNA) 1527 (Given - Provider: Rachel Zayas RN) calcium gluconate 1g in sodium chloride 0.9% 100mL (COMPLETED) 1 g, Intravenous, ONCE, 1 dose, On Wed12/13/18 at 1745, Administer over 6 Minutes, Warning Vesicant/Irritant Medication Patient must be on chicken boner when receiving calcium; calcium can exacerbate digoxin [...] RN) 0800 (Not Given - Provider: Rachel Zayas RN - Reason: Per MD Order) clindamycin (CLEOCIN) [...] today) 004 (Given - Provider: Asim Meneses, SAVNANA)152 (Given - Provider: Rachel Zayas, SAVANNA) levothyroxine [...] Intradermal, ONCE, 1 dose, On Wed12/13/18 at 2030, For use in Interventional Radiology (IR) only [...] 12/14/18, Routine 1528 (Given - Provid er: Rachle Zayas RN) pantoprazole (PROTONIX) tablet 20 mg [...] Routine documented in this encounter Care Teams Mobile Engineer Relationship Specialty Start Date End Date Carroll Fuentes DO [address] [place] [address] PCP - General 09/23/11 10/20/22 documented as of this encounter
--- OUTSIDE RECORDS SUMMARY | 2024-04-22 10:55 | XMS_ITS | Encounter Summary ---
Author Organization [facility] [place] [address] Care Team Providers Care Blanket Binder Name Role Phone Carroll Fuentes DO Primary Care Provider Encounter Details Date Type Department Care Team (Late st Contact Info) Description 2018 [place] [id number] Haile Lujan Social History Tobacco Use Types Packs/Day Years [...] on filedocumented in this encounter Care Teams Blanket Binder Relationship Specialty Start Date End Date Carroll Fuentes DO [address] [place] [address] PCP - General 09/23/11 10/20/22 documented as of this encounter
--- OUTSIDE RECORDS SUMMARY | 2024-04-22 10:55 | XMS_ITS | Encounter Summary ---
Author Organization [facility] [place] [address] Care Team Providers Care Supervisor Machine Setter Name Role Phone AlfredoCarroll allison Primary Care Provider [phone] Reason for Referral * Diagnostic Test (Routine) - Closed Specialty Diagnoses / Procedures Referred By Shashi ko Referred To Contact Radiology Diagnoses ESRD (end stage renal disease) Procedures IR Dialysis Access - Tunneled Line Munira Whiteside MD [facility] [place] [address] [place] [address] Referral ID Status Reason Start Date Expiration Date V isits Requested Visits Authorized [id number] Closed Specialty Service Requested 08/23/2018 08/23/2019 1 1 Reason for Visit * Diagnostic Test (Routine) - Closed Specialty Diagnoses / Procedures Referred By Shashi ko Referred To Contact Radiology Diagnoses ESRD (end stage renal disease) Procedures IR Dialysis Access - Tunneled Line Munira Whiteside MD [facility] [place] [address] [place] [address] Referral ID Status Reason Start Date Expiration Date V isits Requested Visits Authorized [id number] Closed Specialty Service Requested 08/23/2018 08/23/2019 1 1 Encounter Details Date Type Department Care Team (Latest Contact Info) Description 08/30/2018 1:55 PM EST - 08/30/2018 11:59 PM EST Hospital [place] [address] Trever Boyd MD [facility] [place] [address] ESRD (end stage renal disease) Discharge Disposition: [...] Sign Reading Time Taken Comments Blood Pressure 146/102 08/30/2018 4:13 PM EST Pulse 54 08/30/2018 2:39 PM EST Temperature 36.5 ??C (97.7 ??F) 08/30/2018 4:13 PM ES T Respiratory Rate 16 08/30/2018 4:13 PM EST Oxygen Saturation 96% 08/30/2018 4:13 PM EST Inhaled Oxygen Concentration - - Weight - - Height - - Body Mass Index - - documented in this encounter Discharge Instructions * Discharge Instructions* Danette Kunz RN - 08/30/2018 3:59 PM EST [facility] Vascular and Interventional Radiology Discharge [...] is during regular office hours, please call [phone]. If it is after regular office hours, or on weekends or holidays, please call [phone] and ask to speak to the Mental Health Assistant collection coordinator for Interventional Radiology. You have received medication [...] drainage occurs, please contact your MD. Updated 07/26/15 documented in this encounter Medications at Time of Discharge Medication Sig Dispensed Refills Start Date End Date acetaminophen (TYLENOL) 500 mg Tablet Take 2 [...] as of this encounter Progress Notes * Danette Kunz, RN - 08/30/2018 3:10 PM EST To procedure room 2 via stretcher. Onto table Supine. All monitors, safety strap in place. Med's per protocol. * Danette Kunz RN - 08/29/2018 1:43 PM EST [facility] NURSING DATABASE Name: HCRISTY AMBROSE Date of : 1960 AGE: 58 y.o. Address: [address] [place] [address] (home) Mobile: Telephone Information: Referring Provider: Munira Whiteside REASON FOR VISIT: HD Catheter Exchange Order Questions Answers Where will study be performed? [facility] [120] Is the patient on anticoagulant / anitplatelet therapy ? No Reason for exam and clinical history: exposed cuff of right IJ tunneled HD catheter Exam/Procedure requested: please exchange HD catheter Date/time of procedure: 08/31/2018 @1500 Pertinent info from Pre-call (if any): Labs ordered: None Meds stopped: None Assessment: Recent THDC placement with exposed cuff ?? Plan: OTW exchange for similar sized catheter ? Labs: None new needed Prophylactic antibiotic: [none] Medications to discontinue (and when): [none] Patient Position: [supine] Access site: Right chest General Anesthesia: [no] Allergies Allergen Reactions ??? Benazepril Hcl ??? [...] ml/min N18.4 ??? 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 superintendent terminal current use of immunosuppressive drug Z79.899 ??? H/O kidney transplant Z94.0 ??? Weight loss R63.4 ??? Gastrointestinal hemorrhage K92.2 ??? Bradycardia R00.1 ??? Left renal mass N28.89 ??? 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 Surgery follow-up Z09 ??? Subarachnoid hemorrhage I60.9 ??? Anemia of chronic renal failure N18.9, D63.1 ??? SDH (subdural hematoma) S06.5X9A ??? Kidney transplant failure T86.12 ??? CKD (chronic kidney disease) stage 5, GFR less than 15 ml/min N18.5 ??? Hypertension secondary to other renal disorders I15.1, N28.89 ??? Renal osteodystrophy N25.0 ??? 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 Acute renal failure N17.9 Pertinent PSH: Past Surgical History: Procedure Laterality Date ??? CREATED BY INTERFACE Entered not Verified Procedure Date: 09/19/2010 ??? IR DIALYSIS ACCESS - TUNNELED LINE 07/30/2018 IR Dialysis Access - Tunneled Line 07/30/2018 Walt Lin MD [facility] INTERVENTIONL RAD ??? KIDNEY TRANSPLANT KIDNEY TRANSPLANT / RECIPIENT/LT Procedure Date: 11/26/2002 ? ? PRO DEBRIDEMENT SUBCUTANEOUS TISSUE 20 SQCM/< Left 02/20/2016 DEBRIDEMENT SKIN AND SUBCU, HEAD/NECK performed by Miguel Angel Moreno MD at [facility] MAIN OR ??? PRO DECOMPRESS FOREARM, BRACH ART EXPLOR Left 04/06/2018 FASCIOTOMY, FOREARM, WITH BRACHIAL ARTERY EXPLORATION (WRVU 8.41) performed by Lida Peter MDat [facility] MAIN OR ??? PRO DIRECT REPAIR RUPTURED ANEURYSM, AXILLO-BRACHIAL ARM INCIS Left 04/06/2018 @REPAIR, RUPTURED AXILLARY OR BRACHIAL ARTERY ANEURYSM BY ARM INCISION (WRVU *) performed by Lida Peter MD at [facility] MAIN OR ??? PRO EXC PAROTD, TOTAL, UNILAT RAD NECK Left 02/05/2016 @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, TOTAL, WITH UNILATERAL RADICAL NECK DISSECTION performed by Miguel Angel Moreno MD at [facility] MAIN OR ??? PRO EXC SKIN MALIG [...] 25.06) performed by Jax Mills MD at [facility] MAIN OR ??? PRO LIGATN ANGIOACCESS AV FISTULA Left 04/19/2018 LIGATION OR BANDING OF HEMODIALYSIS FISTULA OR GRAFT UPPER EXTREMITY (WRVU 6.25) performed by Odalis Elias MD at [facility] MAIN OR ??? PRO NEGATIVE PRESSURE WOUND THERAPY, LESS THAN OR EQUAL TO 50 SQCM Left 04/19/2018 DRESSING CHANGE (VAC ASSISTED) UP TO 50SQ.CM (WRVU 0.55) performed by Odalis Elias MD [facility] MAIN OR ??? PRO REBL VES GRAFT, UP EXTREM Left 04/06/2018 REPAIR BLOOD VESSEL WITH GRAFT OTHER THAN VEIN, UPPER EXTREMITY (WRVU 15.83) performed by Lida Peter MD at [facility] MAIN OR ??? PRO RELIEVE PRESSURE ON NERVE(S) Left 04/06/2018 (MSURG) CARPAL TUNNEL (WRVU 4.82) performed by Silviano Sparks MD at [facility] OR ??? PRO REPAIR INTERMEDIATE S/A/T/E 2.6-7.5 CM 04/19/2012 REPAIR INTERMEDIATE WOUND, (NO HANDS OR FEET) 2.6 TO 7.5CM, UPPER EXTREMITY performed by SABRINA SANCHEZ at [facility] MAIN OR ? ? PRO REPAIR INTERMEDIATE S/A/T/E > 30.0 CM Left 04/14/2018 REPAIR INTERMEDIATE WOUND, (NO HANDS OR FEET) >30.0CM, UPPER EXTREMITY (WRVU 5) performed by Yimi Easton MD at [facility] MAIN OR ??? PRO REVISE MEDIAN N/CARPAL TUNNEL SURG Left 04/06/2018 MEDIAN NERVE DECOMPRESSION (CARPAL TUNNEL RELEASE) (WRVU 4.97) performed by Lida Peter MD [facility] MAIN OR ? ? PRO SPLIT GRFT TRUNK, ARM, LEG <100SQCM Left 04/26/2018 SPLIT THICK SKIN GRAFT,100 SQ CM OR LESS, ARMS (WRVU 9.9) performed by Silviano Sparks MD at [facility] MAIN OR ? ? PRO SPLIT GRFT, HEAD, FAC, HAND, FEET <100SQCM N/A 02/20/2016 SPLIT THICKNESS SKIN SPLIT GRAFT,100SQ CM OR LESS, NECK performed by Miguel Angel Moreno MD at [facility] MAIN OR ??? PRO SPLIT GRFT, TRUNK, ARM, LEG EA 100SQCM N/A 04/26/2018 EA.ADDITIONAL 100SQ.CM STSG (WRVU 1.72) performed by Silviano Sparks MD at [facility] MAIN OR ??? PRO UPPER GI ENDOSCOPY, BIOPSY N/A 05/13/2017 EGD WITH BIOPSY (WRVU 2.49) performed by Aditya Barrera MD at [facility] ENDOSCOPY ??? PRO VASCULAR SURGERY PROCEDURE UNLIST Left 11/20/2015 LIGATION\REPAIR AV FISTULA performed by Camilo Ireland MD at [facility] MAIN OR ??? PRO VASCULAR SURGERY PROCEDURE UNLIST Left 11/20/2015 EXCISION VEIN FROM HAND performed by Camilo Ireland MD at [facility] MAIN OR ??? US RENAL TRANSPLANT BIOPSY 12/31/2010 ??? US RENAL TRANSPLANT RIGHT Right 06/04/2018 US Renal Transplant Right 06/04/2018 [facility] RAD ULTRASOUND Date/Procedure Meds given/comments 08/30/18 Tunneled HD Cath exchange Fentanyl 100mcg IV Laboratory Results: Lab Results Component Value Date INR 0.9 08/03/2018 Lab Results Component Value Date CREATININE 4.69 (H) 2018 Lab Results Component Value Date K 4.0 2018 Lab Results Component Value Date PLATELET 149 08/03/2018 Medications: Prior to Admission medications Medication Sig Start Date End Date Taking? Authorizing Provider dilTIAZem (CARTIA XT) 120 mg Capsule, Sust. Release 24 hr Take 1 capsule by mouth daily. 08/08/18 Erwin Dolan MD multivitamin Capsule Take 1 capsule by mouth daily. 08/08/18 Erwin Dolan MD allopurinol (ZYLOPRIM) 100 mg Tablet Take 1 tablet by mouth daily. 08/08/18 Erwin Dolan MD acetaminophen (TYLENOL) 500 mg Tablet Take 2 tablets by mouth every 6 hours. 08/08/18 Erwin Dolan MD amLODIPine (NORVASC) 10 mg Tablet Take 1 tablet by mouth daily. 08/08/18 Erwin Dolan MD levETIRAcetam (KEPPRA) 500 mg Tablet Take 1 tablet by mouth 2 times daily. 08/08/18 Geena Dolan MD losartan (COZAAR) 100 mg Tablet Take 1 tablet by mouth every morning. 08/08/18 Erwin Dolan MD pantoprazole (PROTONIX) 20 mg Tablet, Delayed Release (E.C.) Take 1 tablet by mouth 2 times daily. 08/08/18 Erwin Dolan MD calcium carbonate (TUMS) 200 mg calcium (500 mg) Tablet, Chewable Take 2 tablets by mouth 3 times daily (with meals). 08/08/18 Erwin Dolan MD hydrALAZINE (APRESOLINE) 100 mg Tablet Take 1 tablet by mouth 3 times daily. 08/08/18 Erwin Dolan MD tacrolimus (PROGRAF) 1 mg Capsule Take 1 capsule by mouth 2 times daily. 08/08/18 Erwin Dolan MD carvedilol (COREG) 12.5 mg Tablet Take 1 tablet by mouth 2 times daily (with meals). 08/08/18 Erwin Dolan MD levothyroxine (SYNTHROID) 100 mcg Tablet Take 1 tablet by mouth daily. 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 ECF resident. [facility] placed 07/30/2018. The retention cuff is reported to be exposed. OTW exchange is requested. The patient signed his own consent in 07/30. Past Medical/Surgical History: Patient Active Problem List [...] D63.1 ??? SDH (subdural hematoma) S06.5X9A ??? Kidney transplant failure T86.12 ??? CKD (chronic kidney disease) stage 5, GFR less than 15 ml/min N18.5 ??? Hypertension secondary to other renal disorders I15.1, N28.89 ??? Renal osteodystrophy N25.0 ??? 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 Acute renal failure N17.9 Past Medical History: Diagnosis Date ??? BP [...] - Tunneled Line 07/30/2018 Walt Lin MD [facility] INTERVENTIONL RAD ??? KIDNEY TRANSPLANT KIDNEY TRANSPLANT / RECIPIENT/LT Procedure Date: 11/26/2002 ? ? PRO DEBRIDEMENT SUBCUTANEOUS TISSUE 20 SQCM/< Left 02/20/2016 DEBRIDEMENT SKIN AND SUBCU, HEAD/NECK performed by Miguel Angel Moreno MD at [facility] MAIN OR ??? PRO DECOMPRESS FOREARM, BRACH ART EXPLOR Left 04/06/2018 FASCIOTOMY, FOREARM, WITH BRACHIAL ARTERY EXPLORATION (WRVU 8.41) performed by Lida Peter, [facility] MAIN OR ??? PRO DIRECT REPAIR RUPTURED ANEURYSM, AXILLO-BRACHIAL ARM INCIS Left 04/06/2018 @REPAIR, RUPTURED AXILLARY OR BRACHIAL ARTERY ANEURYSM BY ARM INCISION (WRVU *) performed by Lida Peter MD at [facility] MAIN OR ??? PRO EXC PAROTD, TOTAL, UNILAT RAD NECK Left 02/05/2016 @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, TOTAL, WITH UNILATERAL RADICAL NECK DISSECTION performed by Miguel Angel Moreno MD at [facility] MAIN OR ??? PRO EXC SKIN MALIG 3.1-4CM FACE, FACIAL Left 02/05/2016 EXC MALIGNANT LESION, 3.1 TO 4.0CM, FACE performed by Miguel Angel Moreno MD at [facility] MAIN OR ? ? PRO EXC SKIN MALIG >4CM TRUNK, ARM, LEG 04/19/2012 EXC MALIGNANT LESION, MICHAEL > 4.0CM, TRUNK performed by SABRINA SANCHEZ at [facility] MAIN OR ??? PRO LAP, RADICAL NEPHRECTOMY Left 05/31/2017 @LAPAROSCOPY, RADICAL NEPHRECTOMY (WRVU 25.06) performed by Jax Mills MD at [facility] OR ??? PRO LIGATN ANGIOACCESS AV FISTULA Left 04/19/2018 LIGATION OR BANDING OF HEMODIALYSIS FISTULA OR GRAFT UPPER EXTREMITY (WRVU 6.25) performed by Odalis Elias MD at [facility] MAIN OR ??? PRO NEGATIVE PRESSURE WOUND THERAPY, LESS THAN OR EQUAL TO 50 SQCM Left 04/19/2018 DRESSING CHANGE (VAC ASSISTED) UP TO 50SQ.CM (WRVU 0.55) performed by Odalis Elias MD [facility] MAIN OR ??? PRO REBL VES GRAFT, UP EXTREM Left 04/06/2018 REPAIR BLOOD VESSEL WITH GRAFT OTHER THAN VEIN, UPPER EXTREMITY (WRVU 15.83) performed by Lida Peter MD at [facility] OR ??? PRO RELIEVE PRESSURE ON NERVE(S) Left 04/06/2018 (MSURG) CARPAL TUNNEL (WRVU 4.82) performed by Silviano Sparks MD at [facility] OR ??? PRO REPAIR INTERMEDIATE S/A/T/E 2.6-7.5 CM 04/19/2012 REPAIR INTERMEDIATE WOUND, (NO HANDS OR FEET) 2.6 TO 7.5CM, UPPER EXTREMITY performed by SABRINA SANCHEZ at [facility] MAIN OR ? ? PRO REPAIR INTERMEDIATE S/A/T/E > 30.0 CM Left 04/14/2018 REPAIR INTERMEDIATE WOUND, (NO HANDS OR FEET) >30.0CM, UPPER EXTREMITY (WRVU 5) performed by Yimi Easton MD at [facility] MAIN OR ??? PRO REVISE MEDIAN N/CARPAL TUNNEL SURG Left 04/06/2018 MEDIAN NERVE DECOMPRESSION (CARPAL TUNNEL RELEASE) (WRVU 4.97) performed by Lida Peter MD [facility] MAIN OR ? ? PRO SPLIT GRFT TRUNK, ARM, LEG <100SQCM Left 04/26/2018 SPLIT THICK SKIN GRAFT,100 SQ CM OR LESS, ARMS (WRVU 9.9) performed by Silviano Sparks MD at [facility] MAIN OR ? ? PRO SPLIT GRFT, HEAD, FAC, HAND, FEET <100SQCM N/A 02/20/2016 SPLIT THICKNESS SKIN SPLIT GRAFT,100SQ CM OR LESS, NECK performed by Miguel Angel Moreno MD at [facility] MAIN OR ??? PRO SPLIT GRFT, TRUNK, ARM, LEG EA 100SQCM N/A 04/26/2018 EA.ADDITIONAL 100SQ.CM STSG (WRVU 1.72) performed by Silviano Sparks MD at [facility] MAIN OR ??? PRO UPPER GI ENDOSCOPY, BIOPSY N/A 05/13/2017 EGD WITH BIOPSY (WRVU 2.49) performed by Aditya Barrera MD at [facility] ENDOSCOPY ??? PRO VASCULAR SURGERY PROCEDURE UNLIST Left 11/20/2015 LIGATION\REPAIR AV FISTULA performed by Camilo Ireland MD at [facility] MAIN OR ??? PRO VASCULAR SURGERY PROCEDURE UNLIST Left 11/20/2015 EXCISION VEIN FROM HAND performed by Camilo Ireland MD at [facility] MAIN OR ??? US RENAL TRANSPLANT BIOPSY 12/31/2010 ??? US RENAL TRANSPLANT RIGHT Right 06/04/2018 US Renal Transplant Right 06/04/2018 [facility] RAD ULTRASOUND Medications: Current Outpatient Medications on [...] ??? Highest education level: Not on file Social Needs ??? Financial resource strain: Not on file ??? Food insecurity - worry: Not on file ??? Food insecurity - inability: Not on file ??? Transportation needs - medical: Not on file ??? Transportation needs - non-medical: Not on file Occupational History ??? 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 Smoking status: Former Smoker Packs/day: 0.25 Years: 1.50 Pack years: 0.37 Types: Cigarettes Last attempt to quit: 12/03/2000 Years since quittin.7 ??? Smokeless tobacco: Former User Quit date: [...] Labs: Lab Results Component Value Date WBC 4.7 08/03/2018 HCT 28.6 (L) 08/03/2018 PLATELET 149 08/03/2018 INR 0.9 08/03/2018 BUN 27 (H) 2018 CREATININE 4.69 (H) 2018 ALKPHOS 101 07/19/2018 AST 18 07/19/2018 ALBUMIN 3.5 07/19/2018 BILIDIR 0.2 05/15/2017 BILITOT 0.3 07/19/2018 ALT 11 07/19/2018 PROT 5.9 (L) 07/19/2018 Prior Imaging: Assessment: Recent THDC placement with exposed cuff Plan: OTW exchange for similar sized catheter Labs: None new needed Prophylactic antibiotic: [none] Medications to discontinue (and when): [none] Patient Position: [supine] Access site: Right chest General Anesthesia: [no] documented in this encounter Plan of Treatment Not on file documented as of this encounter Procedures Procedure Name Priority Date/Time Associated Diagnosis Comments IR DIALYSIS ACCESS - TUNNELED LINE Routine 08/30/2018 4:05 PM EST ESRD (end stage renal disease) documented in this encounter Results * IR Dialysis Access - Tunneled Line (08/30/2018 4:05 PM EST) Anatomical Region Laterality Modality Abdomen X-Ray Angiograph y Impressions 08/31/2018 8:05 AM EST : ??Successful exchange for a shorter tunneled RIJ 24 in 14.5 F hemodialysis catheter with tip at the cavoatrial junction. Recommendation: Catheter ready for use. Resident: Zacarias Medina PGY-3 Staff: Erwin Simon APRN- present during the intraservice time as documented by the IR Nurse. ?? Attending: Greyson Apple MD (I was present for the procedure) Narrative 08/31/2018 8:05 AM EST IR PROCEDURE NOTE: ?? Tunneled right IJ hemodialysis catheter exchange INDICATION: Per Dr. 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 ECF resident. [facility] placed 07/30/2018. The retention cuff is reported to be exposed. OTW exchange is requested. TECHNIQUE: After discussing risks (including infection, hemorrhage, occlusion), and benefits, patient consented to the procedure. ?? Due to the painful nature of the procedure, split doses of fentanyl were administered by the IR nurse during continuous monitoring of pulse, blood pressure and oxygen saturation. ?? Maximal sterile barrier technique was utilized. Time out was preformed. After sterile preparation of the neck and upper chest, less than 10 cc 1% lidocaine SQ was administered for anesthesia around the catheter exit site. ??Catheter tip was at the caval atrial junction. ??A 0.035 inch glide wire was advanced through each port into the IVC. ??Catheter was exchanged for a shorter 24 in 14.5 F catheter with tip at the cavoatrial junction. The catheter was secured to the skin with suture. ??Position confirmed with stored fluoroscopic image. ??Both ports flushed and aspirated well (>5cc/sec). ??Patient tolerated the procedure well. ??There were no immediate complications. Contrast: No contrast administered. ?? EBL: ??Less than 10 cc Medications: Fentanyl 100 ??mcg IV, 1% Lidocaine <10ccs subcutaneous. ??Antibiotic Prophylaxis: none Fluoro Time: 1.67 mins Est Blood Loss: <5cc. Complications: ??No immediate Trever Boyd MD [facility] [place] IR ORDERABLES documented in this encounter Visit Diagnoses Diagnosis ESRD (end stage renal disease) End stage renal disease documented in this encounter Administered Medications Inactive Administered Medications - up to 3 most recent administrations Medication Order MAR Action Action Date Dose Rate Site fentaNYL 50 mcg/mL multi-dose injection 25-50 mcg, Intravenous, EVERY 5 MIN PRN, Starting on Wed08/30/18 at 1442, Until Wed08/30/18 at 1615, Pain, per unit protocol, - Start dose [...] and verbal order., Angio/IR (Intra-Procedure), Routine Given 08/30/2018 3:45 PM EST 25 mcg Given 08/30/2018 3:40 PM EST 25 mcg Given 08/30/2018 3:35 PM EST 25 mcg lidocaine (XYLOCAINE) 10 mg/mL (1 %) injection 10 mg 10 mg, Subcutaneous, ONCE, 1 dose, On Wed08/30/18 at 1500, For use in Interventional Radiology (IR) only for procedure with direct provider supervision and verbal order., Angio/IR (Intra-Procedure), Routine Given 08/30/2018 3:00 PM EST 10 mg documented in this encounter Care Teams Supervisor Machine Setter Relationship Specialty Start Date End Date Carroll Fuentes DO [address] [place] [address] PCP - General 09/23/11 10/20/22 documented as of this encounter
--- OUTSIDE RECORDS SUMMARY | 2024-04-22 10:55 | XMS_ITS | Encounter Summary ---
Author Organization [facility] Address [facility] [place] [address] Care Team Providers Care Md Allergy Immunology Name Role Phone Alfredo Carroll MIX Primary Care Provider [phone] Reason for Visit * Reason Comments Arteriovenous Fistula avf first time acc ess * Consultation (Routine) - Closed Specialty Diagnoses / Procedures Referred By Contac t Referred To Contact Vascular Surgery Diagnoses ESRD (end stage renal disease) Sagrario Hodges, RN [address] [place] [address] [place] [address] [facility] [place] [address] Referral ID Status Reason Start Date Expiration Date V isits Requested Visits Authorized [id number] Closed Consult Only 11/07/2018 11/07/2019 2 2 Encounter Details Date Type Department Care Team (Late st Contact Info) Description 11/29/2018 2:00 PM EDT Office Visit [place] [address] [facility] VASCULAR SURGERY [place], [place] [id number] CKD (chronic kidney disease) stage 4, GFR [...] Sign Reading Time Taken Comments Blood Pressure 102/71 11/29/2018 1:58 PM EDT Pulse 51 11/29/2018 1:58 PM EDT Temperature - - Respiratory Rate 18 11/29/2018 1:58 PM EDT Oxygen Saturation - - Inhaled Oxygen Concentration - - Weight 84.2 kg (185 lb 9.6 oz) 11/29/2018 1:58 P M EDT Height 177.8 cm (5' 10) 11/29/2018 1:58 PM EDT Body Mass Index 26.63 11/29/2018 1:58 PM EDT documented in this encounter Progress Notes * Sepideh Forrester PA - 11/29/2018 2:00 PM EDT Vascular Surgery Consultation ?? Reason for Visit: Dialysis access ?? History of Present Illness: Adama Ram is a 58 y.o. 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 In March 2018, patient was admitted with a massive hemorrhage from his LUE AVF went into PEA cardiac arrest. He was resuccitated at OSH with 6 U PRBC, [place] [facility]ently underwentrepair of AVF, brachial artery patch angioplasty, axillary venous phlebotomy, forearm and hand fasciotomies on 04/06/18. On 04/14/19, patient underwent debridement and partial closure of fasciotomies. Patient was found to also have an aneurysmal left radiocephalic AVF, which increased in size. There was concern for infection, and on 04/19/18 patient underwent L arm distal fistula ligation. He underwent STSG of L arm wound on 04/26/19 by plastic surgery. Patient was admitted in July 2018 with uncontrolled BP and anasarca, found to have failed transplant. Patient started HD on 07/30/18 via R IJ TDC. Currently on HD . Patient presents today for evaluation of HD access. He is R hand dominant. Currently with R IJ TDC. Denies any episodes of BLE pain, numbness or paresthesias. Denies chest pain and dyspnea. Prior Vascular Hx: AVF creation and revisions (3 total operations) 04/06/2018: Exploration of LUE AVF, repair of AVF, brachial artery patch angioplasty, Axillary venous phlebotomy, Forearm and hand fasciotomies for LUE AVF hemorrhage. ([place]) 04/14/2018: Sharp excisional debridement of skin, subcutaneous tissue, and muscle, partial closure of open fasciotomies, wound vac negative pressure therapy dressing placement. (Jemma) 04/19/2018: ??Left arm distal fistula ligation, left arm open wound vac dressing change for aneurysmal L radiocephalic AVF. ([place]) 04/26/2018: Left arm split thickness skin graft. (Plastic surgery) Atherosclerotic Risk Factors: (N) DM (Y) HTN (N) Hyperlipidemia (Y) Tobacco - Former smoker, intermittently for 2 years. (N) CVA ?? Cardiovascular History: (N) Previous IN (N) Angina (N) CHF (N) Arrythmia (N) PAD Problem List: Patient Active Problem List Diagnosis ??? Acute renal failure ??? Kidney transplant failure ??? CKD (chronic kidney disease) stage 5, [...] GFR 15-29 ml/min ??? 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 meterman current use of immunosuppressive drug ??? H/O [...] cell carcinoma of skin) ??? IgA nephropathy Overview Note: Recurrent in the transplant ??? Gout ??? Hypertension Overview Note: ??? Left leg DVT Overview Note: ??? Epilepsy Overview Note: Review of Systems: Constitutional: Denies any fevers, chills, night sweats. HEENT: Denies headache, vision changes, hearing loss. CV: Denies chest pain and palpitations. Respiratory: Denies dyspnea and cough. GI: Denies abdominal pain, nausea and vomiting. : Denies hematuria, dysuria, and urinary frequency. MS: Denies extremity pain and weakness. Skin: Denies any color changes, rashes or lesions. Neuro: Denies dizziness, numbness and paresthesias. Social Hx: Patient has a hx of smoking intermittently for approximately 2 years. Denies of ETOH or drug abuse.Currently resides at [facility] in [facility]. ?? Family Hx: Negative for clotting and bleeding disorders. Medications: Current Outpatient Medications on File Prior to Visit Medication Sig Dispense Refill ??? dilTIAZem (CARTIA [...] facility-administered medications on file prior to visit. Allergies: Allergies Allergen Reactions ??? Benazepril Hcl ??? Codeine Other (See Comments) Patient does not know reaction ??? Hydrochlorothiazide ??? Pollen Extracts Sneezing/runny nose Physical Exam: GEN: Alert and appears stated age. Cooperative. In NAD. HEENT: Normocephalic and atraumatic. CV: RRR. S1/S2 present. Pulm: Clear to auscultation bilaterally. Abd: No palpable aortic pulse or abdominal mass. Soft, non-distended, non-tender to palpation. Skin: Color, texture, turgor normal. No rashes or lesions. Neuro: No gross sensory or motor abnormality. Extremities: LUE incisional scars. Bilateral UE and LE warm and pink. No edema. No wounds. Vascular Exam: R L Carotid Bruit No No Radial 2/2 2/2 Femoral 2/2 2/2 DP 2/2 2/2 PT 2/2 2/2 Labs: No new labs within the last 24 hours. Studies: First time dialysis access 11/29/18: Findings: ?? Shoulder Cephalic Vein, Right ?Lorna.(mm): 2.0 Mid Upper Arm Cephalic Vein, Right ?Lorna.(mm): 2.7 ?Thrombus: NON-OCCLUSIVE THROMBUS Antecubital Fossa Cephalic Vein, Right ?Lorna.(mm): 4.4 Cephalic Vein - Forearm Proximal, Right ?Lorna.(mm): 1.2 ?Thrombus: Sclerosis Mid Forearm Cephalic Vein, Right ?Lorna.(mm): 1.2 ?Thrombus: Sclerosis Wrist Cephalic Vein, Right ?Lorna.(mm): 1.2 ?Thrombus: Sclerosis Mid Upper Arm Basilic Vein, Right ?Lorna.(mm): 3.6 Antecubital Fossa Basilic Vein, Right ?Lorna.(mm): 2.2 Brachial Artery, Right ?Pres. (mmHg): 103 ?Waveform: Triphasic Shoulder Cephalic Vein, Left ?Lorna.(mm): 1.5 Mid Upper Arm Cephalic Vein, Left ?Lorna.(mm): 1.4 Upper Arm Basilic Vein, Left ?Lorna.(mm): 2.4 ?Thrombus: NON-OCCLUSIVE THROMBUS Mid Upper Arm Basilic Vein, Left ?Lorna.(mm): 2.4 Brachial Artery, Left ?Pres. (mmHg): 105 ?Waveform: Triphasic ?? Interpretation: ?? RIGHT: Patent subclavian and axillary vein with normal pulsatile respirophasic Doppler flow signals. No evidence of axillary or brachial DVT (previously identified on the DVT exam performed on 06/03/2018). There is superficial vein thrombus in the cephalic vein at the mid upper arm to antecubital fossa. The cephalic vein through the forearm is small and sclerotic appearing. Patent basilic vein with no evidence of thrombus and joins the deep system (brachial vein) in the mid upper arm. Tourniquet was used for diameter measurements. The brachial bifurcation is just below the antecubital fossa. ?? LEFT: Patent subclavian and axillary vein with normal pulsatile respirophasic Doppler flow signals. There is non-occlusive thrombus in the basilic vein in the very proximal upper arm as well as vein wall thickening noted throughout the vessel. The basilic vein joins to deep system (brachial vein) in the proximal upper arm/axilla. Patent cephalic vein (proximal to distal upper arm) with no evidence of thrombus. The cephalic vein at the antecubital fossa to wrist was not identified. Tourniquet was used for diameter measurements. The brachial artery bifurcation level is just below the antecubital fossa. Assessment and Plan: Adama Ram is a 58 y.o. 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 Hx of multiple LUE AVF (3 operations in 2001), with massive hemorrhage of LUE AVF in March 2018 when patient was placed on coumadin after concern for LUE DVT due to LUE edema. He underwent emergent repair of AVF, brachial artery patch angioplasty, axillary venous phlebotomy, forearm and hand fasciotomies on 04/06/18. Also found to have aneurysmal L r adiocephalic AVF, underwent ligation on 04/19/18. Renal transplant failed in July 2018, and he is undergoing HD -- via R IJ TDC since. First time access study reveals no options for AVF creation. Recommend left brachial axillary AVG placement,given left arm is non-dominant. Plan reviewed with Dr. Mullins. Plan to schedule procedure within the next month. Instructed to call the clinic with any concerns prior to the procedure. Sepideh Forrester PA-C documented in this encounter Plan of Treatment Not on file documented as of this encounter Procedures Procedure Name Priority Date/Time Associated Diagnosis Comments PLACEMENT, AV HEMODIALYSIS GRAFT, SYNTHETIC GRAFT Routine 11/30/2018 7:20 AM EDT documented in this encounter Results * (ABNORMAL) Potassium (12/13/2018 8:29 AM EDT) Potassium 5.8(H) 3.5 - 5.0 mmol/L [facility] Comment: Please note: ??Patients [...] In Lab Kurt Mullins [place] [address] documented in this encounter Visit Diagnoses Diagnosis CKD (chronic kidney disease) stage 4, GFR 15-29 ml/min Chronic kidney disease, Stage IV (severe) Acute renal failure, unspecified acute renal failure type documented in this encounter Care Teams Md Allergy Immunology Relationship Specialty Start Date End Date Carroll Fuentes DO [address] [place] [address] [address] [place] [address] PCP - General 09/23/11 10/20/22 documented as of this encounter
--- OUTSIDE RECORDS SUMMARY | 2024-04-22 10:55 | XMS_ITS | Encounter Summary ---
Author Organization [facility] Address [facility] [place] [address] Care Team Providers Care Mold Filler And Drainer Name Role Phone AlfredoCarroll allison Primary Care Provider [phone] Encounter Details Date Type Department Care Team (Late st Contact Info) Description 09/29/2018 Orders [place] [address] Anand Lugo PA [facility] [address] SDH (subdural hematoma) Social History Tobacco Use [...] of this encounter Progress Notes * Anand Lugo PA - 09/29/2018 2:31 PM EDT Spoke w/ brother Lucas Ram to give head CT results. SDH reduced in size by about half. Recommend repeat in 3 months. documented in this encounter Plan of Treatment Not on file documented as of this encounter Visit Diagnoses Diagnosis SDH (subdural hematoma) Subdural hemorrhage documented in this encounter Care Teams Mold Filler And Drainer Relationship Specialty Start Date End Date Carroll Fuentes DO [address] [place] [address] PCP - General 09/23/11 10/20/22 documented as of this encounter
--- OUTSIDE RECORDS SUMMARY | 2024-04-22 10:55 | XMS_ITS | Encounter Summary ---
Author Organization [facility] Address [facility] [place] [address] Care Team Providers Care Data Analytics Architect Name Role Phone AlfredoCarroll allison Primary Care Provider [phone] Reason for Referral * Surgical (Routine) - Closed Specialty Diagnoses / Procedures Referred By Shashi ko Referred To Contact Neurosurgery Diagnoses SDH (subdural hematoma) Follow up SDH, requested 1 month f/u clinic visit with HCT (~ 09/01/2018) [place] [address] [facility] [place], [place] Neurosurgery [address] [place] [address] Referral ID Status Reason Start Date Expiration Date V isits Requested Visits Authorized [id number] Closed Consult, Test & Treat 2018 2019 1 1 * Diagnostic Test (Routine) - Closed Specialty Diagnoses / Procedures Referred By Shashi ko Referred To Contact Radiology Diagnoses SDH (subdural hematoma) Procedures CT Head wo Contrast (Generic) Dmitriy Hoffman APRN [facility] [place] [address] [facility] [place] [address] Referral ID Status Reason Start Date Expiration Date V isits Requested Visits Authorized [id number] Closed Specialty Service Requested 08/09/2018 11/07/2018 1 1 Reason for Visit * Reason Comments Abnormal Labs * Auth/Cert Specialty Diagnoses / Procedures Referred By Contac t Referred To Contact Diagnoses Acute renal failure Acute kidney injury Procedures EMERGENCY IPI Referral ID Status Reason Start Date Expiration Date Visits Re quested Visits Authorized [id number] 1 1 Encounter Details Date Type Department Care Team (Latest Contact Info) Description 07/29/2018 9:02 PM EST - 2018 9:00 AM EST Hospital Encounter [address] [place] [id number] Oliver Lynn MD [address] [place] [id number] Alonzo Alatorre MD [facility] [place] [address] [place] [address] Sabrina Flynn III, [place] [address] [place] [address] Acute kidney injury; Nonintractable epilepsy without status epilepticus, unspecified epilepsy type; SDH (subdural hematoma); H/O kidney transplant Discharge Disposition: Home Social History Tobacco Use [...] Sign Reading Time Taken Comments Blood Pressure 148/92 2018 8:12 AM EST Pulse 70 2018 8:12 AM EST Temperature 37.2 ??C (99 ??F) 2018 8:12 AM EST Respiratory Rate 16 2018 8:12 AM EST Oxygen Saturation 95% 2018 8:12 AM EST Inhaled Oxygen Concentration - - Weight 95.3 kg (210 lb 1.6 oz) 2018 5:50 A M EST Height 178.5 cm (5' 10.28) 08/01/2018 5:[address] Body Mass Index 29.91 08/01/2018 5:33 AM EST documented in this encounter Discharge Summaries * rEwin Dolan MD - 2018 9:00 AM EST Discharge Summary Patient Name: Christy Ambrose Patient Age: 58 y.o. Language: Belarusian Race: White Ethnicity: Not nor Admit date: 07/29/2018 Discharge date and time: 08/08/18 Attending Physician: Erwin Dolan MD Discharge Physician: Erwin Dolan MD Follow-up Recommendations for Providers: 1) Repeat Head CT in 5 days (ordered to be performed ~08/12/2018) to assess for stability of his subdural hematoma. If stable can resume heparin with HD. Will have 1 month follow up HCT and neurosurgery clinic f/u visit in ~ 1 month. 2) Continue to titrate blood pressure medications for BP control - room to increase coreg if needed Inpatient Provider Contact Information: For questions regarding this document or issues relating to this hospitalization on the Medical Service, please contact your inpatient physician through the [facility] Education Administrator . Issues afterhours and on weekends will be handled by the Hospitalist staff on-call. Discharge Diagnoses (Hospital Problems) and Secondary Diagnoses (Chronic Problems): Active Hospital Problems Diagnosis ??? Acute renal failure ??? SDH (subdural hematoma) ??? Hypertension ??? Epilepsy Resolved Hospital Problems Diagnosis Date Resolved ??? Increased anion gap metabolic acidosis 08/03/2018 ??? Hypernatremia 08/03/2018 Active Non-Hospital Problems Diagnosis ??? Kidney transplant failure ??? CKD (chronic kidney disease) stage 5, GFR less than 15 ml/min ??? Hypertension secondary to other renal disorders ??? Renal osteodystrophy ??? RTA (renal tubular acidosis) ??? Anemia of chronic renal failure ??? Subarachnoid hemorrhage ??? Surgery follow-up ??? Primary papillary carcinoma of left kidney ??? Gastrointestinal hemorrhage ??? Bradycardia ??? Left renal mass ??? Weight loss ??? CKD (chronic kidney disease) stage 4, GFR 15-29 ml/min ??? 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 H/O [...] skin) ??? IgA nephropathy ??? Gout ??? Left leg DVT Operations/Major Procedures: Tunneled HD catheter placement by IR 07/30/18 History of Presentation: This is a 57 y.o. male [facility] resident (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 As of Jul [address] Rivera, the patient's graft function was not recovering. Was around baseline ~2.5 as of his March presentation, then Cr around 3.3 when he presented in May with a fall. Cr on this Rishabh 8 clinic visit was 7.[address] Rivera anticipated imminent dialysis needs. The patient reports taking his medications as prescribed. He has not noticed any change in his urine output. Denies any flank pain but does describe ~2 months of stable pelvic pain. He has been gaining significant fluid weight and is swollen in his entire body. He also reports new diffuse itching. Mild cough and stable shortness of breath. Outside labs on Wednesday supposedly showed Cr 11 so admission was recommended after discussing with Dr. Rivera. Hospital Course: Acute on Chronic Kidney Disease His renal function has steadily worsened to the point of needing to initiate HD. This is likely dueto graft failure. He presented with uremic encephalopathy, volume overload and HTN. He was started on HD and tolerated this well. He will cont HD M, W, F as an outpatient in [place], [place]. His cellcept was discontinued and tacrolimus changed to 1mg BID at the recommendation of his transplant volunteer specialist. Levels do not need to be monitored for the tacrolimus. Subacute Subdural Hematoma with brain compression This had been followed by NS as an outpatient since this fall. He had a schedule repeat head CT which demonstrated interval increase in side of his subdural hematoma. As such neurosurgery was consulted and recommended repeat CT scan which she had at daily intervals for 2 days. This showed no progression of the size of his hematoma. Heparin with dialysis was discontinued and it is recommended thathe not receive any antiplatelets or anticoagulants for now. Neurosurgery has recommended a 1 week follow up HCT (~08/12/2017) to monitor for any change in size, if stable it would be okay to restart heparin with HD. Neurosurgery will be scheduling a follow-up appointment with the patient in approximately 4 weeks with another repeat HCT at that time. Seizures He has a history of seizures and was on Keppra prior to admission. Several days into his stay he was noted to have a seizure. Neurology was consulted and recommended increase in Keppra to 500 mg twice a day. They also recommended an EEG which was without acute findings. He is currently at max dose of Keppra and therefore if seizures were to continue neurology would need to be consulted for consideration of an additional medication. Hypertension He had very difficult to control asymptomatic hypotension during the stay. This is thought to be inpart exacerbated by his worsening renal function and volume overload. His amlodipine was increased,his diltiazem was discontinued and he was started on Coreg. His home dose of losartan and hydralazine were also continued. With these changes and volume removal with dialysis his blood pressure showed gradual improvement. Vital Signs at Discharge: BP: (!) 148/92, Heart Rate: 70, Temp: 37.2 ??C (99 ??F), Resp: 16, BMI (Calculated): 32.47 Height: 178.5 cm (5' 10.28) (08/01/18 0533) Weight: 95.3 kg (210 lb 1.6 oz) (08/08/18 0550) Patient Vitals for the past 168 hrs: Weight 08/08/18 0550 95.3 kg (210 lb 1.6 oz) 08/07/18 1606 94.1 kg (207 lb 6.4 oz) 08/06/18 0500 93.9 kg (207 lb 0.2 oz) 08/05/18 1036 93.3 kg (205 lb 11.2 oz) 08/03/18 1626 97.3 kg (214 lb 9.6 oz) 08/03/18 0322 96.7 kg (213 lb 1.6 oz) 08/02/18 0626 98.2 kg (216 lb 7.9 oz) Functional and Cognitive Status: Fair Important Studies and Lab Data: Labs: Last 3 wbc, hgb, hct plt Recent Labs 08/03/18 1909 07/29/18 2136 07/19/18 0941 WBC 4.7 3.8* 4.2 HGB 9.2* 9.2* 8.8* HCT 28.6* 28.9* 27.3* PLATELET 149 105* 145 Last 3 Lytes Recent Labs 08/08/18 0556 08/06/18 0632 08/04/18 0434 NA 134* 141 138 K 4.0 3.7 4.1 CL 98 99 101 CO2 25 25 23 BUN 27* 26* 35* CREATININE 4.69* 4.90* 5.61* Last 3 LFTs Recent Labs 07/19/18 0941 06/07/18 1042 05/25/18 0830 AST 18 19 17 ALT 11 13 10 ALKPHOS 101 100 91 BILITOT 0.3 0.4 0.2 Last Ca, Mg, Phos Recent Labs 08/08/18 0556 CALCIUM 7.7* PHOS 3.1 Studies: CT Head 08/03/18 IMPRESSION 1. Unchanged size of the mixed attenuation left subdural hematoma. 2. Unchanged local mass effect. 3. No new areas of acute intracranial hemorrhage. CT Head 08/01/18 Interval significant increase in size of extra-axial collection suggesting acute on chronic hemorrhage with increase in mass effect on the adjacent left posterior frontal and parietal lobe parenchyma. CXR 07/29/18 Mild pulmonary edema with small bilateral pleural effusions. Pending Studies and Lab Data: None Discharge Conditions/Prognosis: Good Discharge to: [facility] Updated Allergies/ADRs: Allergies Allergen Reactions ??? Benazepril Hcl ??? Codeine Other (See Comments) Patient does not know reaction ??? Hydrochlorothiazide ??? Pollen Extracts Sneezing/runny nose Immunizations Given this Hospitalization: Immunization History Administered Date(s) Administered ??? Hepatitis B Vaccine, unspecified formulation 10/31/2001 ??? Influenza PF, Split 03/12/2016 ??? Influenza Vaccine w/Preservative, Split 04/20/2013 ??? Influenza Vaccine, Whole 06/11/2006, 04/09/2009 ??? Pneumococcal Conjugate (13 Valent) 05/20/2016 ??? Pneumococcal Polyvalent 23 05/23/2013 ??? Tdap Vaccine 11/26/2016 Discharge Medications: Your Medications New Medications Dose Details calcium carbonate 200 mg calcium (500 mg) Chew Commonly known as: TUMS Take 2 tablets by mouth 3 times daily (with meals). Replaces: calcium carbonate 648 mg calcium Tab 1000 mg Quantity: 90 tablet Refills: 0 carvedilol 12.5 mg Tab Commonly known as: COREG Take 1 tablet by mouth 2 times daily (with meals). 12.5 mg Quantity: 60 tablet Refills: 3 Continued medications with new dosing Dose Details amLODIPine 10 mg Tab Commonly known as: NORVASC Take 1 tablet by mouth daily. What changed: ?? medication strength ?? how much to take 10 mg Quantity: 30 tablet Refills: 0 hydrALAZINE 100 mg Tab Commonly known as: APRESOLINE Take 1 tablet by mouth 3 times daily. What changed: ?? medication strength ?? how much to take 100 mg Quantity: 90 tablet Refills: 0 levETIRAcetam 500 mg Tab Commonly known as: KEPPRA Take 1 tablet by mouth 2 times daily. What changed: additional instructions 500 mg Quantity: 60 tablet Refills: 0 losartan 100 mg Tab Commonly known as: COZAAR Take 1 tablet by mouth every morning. What changed: how much to take 100 mg Quantity: 60 tablet Refills: 0 tacrolimus 1 mg Cap Commonly known as: PROGRAF Take 1 capsule by mouth 2 times daily. What changed: ?? when to take this ?? Another medication with the same name was removed. Continue taking this medication, and follow the directions you see here. 1 mg Quantity: 60 capsule Refills: 0 Continued medications, unchanged Dose Details acetaminophen 500 mg Tab Commonly known as: TYLENOL Take 2 tablets by mouth every 6 hours. 1000 mg Quantity: 30 tablet Refills: 1 allopurinol 100 mg Tab Commonly known as: ZYLOPRIM Take 1 tablet by mouth daily. 100 mg Quantity: 30 tablet Refills: 11 dilTIAZem 120 mg Cp24 Commonly known as: CARTIA XT Take 1 capsule by mouth daily. 120 mg Quantity: 90 capsule Refills: 0 levothyroxine 100 mcg Tab Commonly known as: SYNTHROID Take 1 tablet by mouth daily. 100 mcg Quantity: 90 tablet Refills: 0 multivitamin Cap Take 1 capsule by mouth daily. 1 capsule Quantity: 30 capsule Refills: 0 pantoprazole 20 mg Tbec Commonly known as: PROTONIX Take 1 tablet by mouth 2 times daily. 20 mg Quantity: 60 tablet Refills: 0 STOPPED Medications calciTRIol 0.5 mcg Cap Commonly known as: ROCALTROL calcium carbonate 648 mg calcium Tab Replaced by: calcium carbonate 200 mg calcium (500 mg) Chew furosemide 40 mg Tab Commonly known as: LASIX metoprolol tartrate 50 mg Tab Commonly known as: LOPRESSOR mycophenolate 250 mg Cap Commonly known as: CELLCEPT sodium bicarbonate 650 mg Tab Smoking Status at Discharge: Social History Tobacco Use Smoking Status Former Smoker ??? Packs/day: 0.25 ??? Years: 1.50 ??? Pack years: 0.37 ??? Types: Cigarettes ??? Last attempt to quit: 12/03/2000 ??? Years since quittin.6 Smokeless Tobacco Former User ??? Quit date: 04/14/2001 Instructions Given to Patient at Discharge: Patient Instructions Instruction after leaving the hospital Why you were hospitalized: Altered mental status related to worsening renal dysfunction, seizures, and a small amount of bleeding around your brain. You were started on dialysis, your dose of keppra was increased, and your bleeding will be followed up by a repeat scan in several weeks to ensure that it is stable. Call your doctor or seek medical attention if you develop the following: Worsening MÉNDEZ or confusion Nausea, vomiting, inability to tolerate po Intake Activity level: As tolerated Diet: Renal diet Driving: Should not drive x 6 months due to recent seizure Specific instructions related to your condition: -We have stopped your calcitriol. You should take tums as prescribed -You will need a follow up head CT in ~ 5 days; as well as a repeat in about weeks (~ 09/01/2018) tofollow up on your SDH along with a neurosurgery follow up visit. -Your keppra was increased to 500 mg 2xD -Your BP medications were adjusted during your stay. New medications include carvedilol to replace metoprolol. Further adjustments to be made by your volunteer specialist. -Your cellcept was dicontinued. Your should continue tacrolimus 1 mg 2xD. These levels do not need to be monitored. Follow-Up Appointments Your Inpatient Doctor(s) at [facility]: Erwin Dolan MD General Instructions NON-OPERATIVE HEAD INJURY/BLEED DISCHARGE INSTRUCTIONS PRESCRIPTION INSTRUCTIONS: Please see the medication reconciliation list on this discharge summary for a current list of your medications. Stop the use of blood thinning medications until instructed otherwise by your neurosurgical team. This includes medications known as antiplatelet, anticoagulant, and non-steroidal anti-inflammatory (NSAIDs) drugs. Common shjp-bek-xjnyelb medications which should be avoided include Aspirin, ibuprofen, and naproxen among others. These medications are sometimes combined with other drugs or are sold under a trade name. Common prescription medications which should be avoided include Plavix (clopidogrel) and Coumadin (warfarin) among others. The following medications are commonly prescribed after admission. An [x] indicates that these medications have been prescribed for you. [x] Antiepileptics - seizure prophylaxis: Keppra (levetiracetam) Antiepileptics are commonly prescribed to prevent seizures. Take the medication as directed. WHEN TO SEEK MEDICAL CARE: New neurologic symptoms - Worsening headaches not controlled with your pain medication - Drowsiness, confusion, and lethargy - Visual changes - Difficulty speaking or slurred speech - Facial droop - New weakness or sensory changes - New unsteadiness when walking - Seizures Constipation not relieved by diet and over the counter stool softeners and laxatives Nausea/vomiting (upset stomach) not controlled with anti-nausea medication Symptoms of a deep venous thrombosis (DVT) or pulmonary embolism (PE): - Swelling/warmth/redness of the leg - Pain in the leg, which can be worse with standing or walking - Chest pain or shortness of breath To help prevent a DVT: - Exercise regularly. Walking, at least several times daily, is helpful. - Ankle pump exercises (like pressing and releasing the gas pedal) should be done regularly. - Keep hydrated with water or other clear liquids (coffee/tea/cola can dehydrate you). - Avoid alcohol and crossing your legs. - Remember not to sit or lay in bed, while awake, for prolonged amounts of time. DIET: - You may resume your usual diet. - Prune juice or prunes can be added to your diet to assist with any constipation. ACTIVITY: - Avoid activities that are physically demanding or require a lot of concentration. They can make your symptoms worse and slow your recovery. - Avoid activities, such as contact or recreational sports, that could lead to a head injury. - When your health manager of care says you are well enough, return to your normal activities gradually, not all at once. - Talk with your health manager of care about when you can return to work. DRIVING: - Do not drive while taking narcotic pain medication. [x] You may return to driving 2 weeks after your injury. [] Do NOT drive until cleared by Neurosurgery. FOLLOW UP PLAN: Appointment: Please follow-up in the Neurosurgery Clinic in [] 2 weeks or [x] 4-6 weeks with a Neurosurgery Associate Provider. Please call the Neurosurgery Office at [phone] if you do not receive a scheduled appointment within two weeks Imaging: [x] Head CT [facility] Vascular and Interventional Radiology Discharge Instructions for [...] is during regular office hours, please call [phone]. If it is after regular office hours, or on weekends or holidays, please call [phone] and ask to speak to the Marketing Financial Analyst manager functional for Interventional Radiology. You have received medication [...] occurs, please contact your MD. Updated 07/26/15 Future Appointments and Orders Future Appointments and Orders Future Appointments Provider Department Dept Phone 08/18/2018 10:30 AM Chanel Smith MD Dermatology at [facility] [address] [phone] Future Orders Complete By Expires CT Head wo Contrast (Generic) [[id number] Custom] 08/12/2018 02/11/2019 Process Instructions: Scheduling Instructions: Questions: Where will study be performed?: [facility] Reason for exam and clinical history: Follow up SDH Other pertinent information: Stat read required?: Does patient require sedation?: GA rationale: Date of injury if applicable: Requested Time: CT Head wo Contrast (Generic) [[id number] Custom] 09/01/2018 03/03/2019 Process Instructions: Scheduling Instructions: Questions: Where will study be performed?: [facility] Reason for exam and clinical history: Left acute SDH follow-up at 4 weeks Other pertinent information: Stat read required?: Does patient require sedation?: GA rationale: Date of injury if applicable: Requested Time: Referral to Neurosurgery [REF48 Custom] As directed Process Instructions: If no progress note charted, please enter Clinical details in comments. Scheduling Instructions: Questions: My question or request is: Follow up SDH, requested 1 month f/u clinic visit with HCT (~ 09/01/2018) Discharge References/Attachments None documented in this encounter Discharge Instructions * Discharge Instructions* Dmitriy Hoffman, EXTRACTIVE METALLURGIST - 08/04/2018 7:52 AM EST NON-OPERATIVE HEAD INJURY/BLEED DISCHARGE INSTRUCTIONS PRESCRIPTION INSTRUCTIONS: Please see the medication reconciliation list on this discharge summary for a current list of your medications. Stop the use of blood thinning medications until instructed otherwise by your neurosurgical team. This includes medications known as antiplatelet, anticoagulant, and non-steroidal anti-inflammatory (NSAIDs) drugs. Common qnvr-ntz-tlpfile medications which should be avoided include Aspirin, ibuprofen, and naproxen among others. These medications are sometimes combined with other drugs or are sold under a trade name. Common prescription medications which should be avoided include Plavix (clopidogrel) and Coumadin (warfarin) among others. The following medications are commonly prescribed after admission. An [x] indicates that these medications have been prescribed for you. [x] Antiepileptics - seizure prophylaxis: Keppra (levetiracetam) Antiepileptics are commonly prescribed to prevent seizures. Take the medication as directed. WHEN TO SEEK MEDICAL CARE: New neurologic symptoms - Worsening headaches not controlled with your pain medication - Drowsiness, confusion, and lethargy - Visual changes - Difficulty speaking or slurred speech - Facial droop - New weakness or sensory changes - New unsteadiness when walking - Seizures Constipation not relieved by diet and over the counter stool softeners and laxatives Nausea/vomiting (upset stomach) not controlled with anti-nausea medication Symptoms of a deep venous thrombosis (DVT) or pulmonary embolism (PE): - Swelling/warmth/redness of the leg - Pain in the leg, which can be worse with standing or walking - Chest pain or shortness of breath To help prevent a DVT: - Exercise regularly. Walking, at least several times daily, is helpful. - Ankle pump exercises (like pressing and releasing the gas pedal) should be done regularly. - Keep hydrated with water or other clear liquids (coffee/tea/cola can dehydrate you). - Avoid alcohol and crossing your legs. - Remember not to sit or lay in bed, while awake, for prolonged amounts of time. DIET: - You may resume your usual diet. - Prune juice or prunes can be added to your diet to assist with any constipation. ACTIVITY: - Avoid activities that are physically demanding or require a lot of concentration. They can make your symptoms worse and slow your recovery. - Avoid activities, such as contact or recreational sports, that could lead to a head injury. - When your health manager of care says you are well enough, return to your normal activities gradually, not all at once. - Talk with your health manager of care about when you can return to work. DRIVING: - Do not drive while taking narcotic pain medication. [x] You may return to driving 2 weeks after your injury. [] Do NOT drive until cleared by Neurosurgery. FOLLOW UP PLAN: Appointment: Please follow-up in the Neurosurgery Clinic in [] 2 weeks or [x] 4-6 weeks with a Neurosurgery Associate Provider. Please call the Neurosurgery Office at [phone] if you do not receive a scheduled appointment within two weeks Imaging: [x] Head CT [facility] Vascular and Interventional Radiology Discharge Instructions for [...] is during regular office hours, please call [phone]. If it is after regular office hours, or on weekends or holidays, please call [phone] and ask to speak to the Marketing Financial Analyst manager functional for Interventional Radiology. You have received medication [...] occurs, please contact your MD. Updated 07/26/15 * Patient Instructions* Erwin Dolan MD - 2018 8:13 AM EST Instruction after leaving the hospital Why you were hospitalized: Altered mental status related to worsening renal dysfunction, seizures, and a small amount of bleeding around your brain. You were started on dialysis, your dose of keppra was increased, and your bleeding will be followed up by a repeat scan in several weeks to ensure that it is stable. Call your doctor or seek medical attention if you develop the following: Worsening MÉNDEZ or confusion Nausea, vomiting, inability to tolerate po Intake Activity level: As tolerated Diet: Renal diet Driving: Should not drive x 6 months due to recent seizure Specific instructions related to your condition: -We have stopped your calcitriol. You should take tums as prescribed -You will need a follow up head CT in ~ 5 days; as well as a repeat in about weeks (~ 09/01/2018) tofollow up on your SDH along with a neurosurgery follow up visit. -Your keppra was increased to 500 mg 2xD -Your BP medications were adjusted during your stay. New medications include carvedilol to replace metoprolol. Further adjustments to be made by your volunteer specialist. -Your cellcept was dicontinued. Your should continue tacrolimus 1 mg 2xD. These levels do not need to be monitored. 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 Ysabel expressed that patient needs dialysis on time at [facility]. Called [employer] to secure ride, will be at [facility] in 15 minutes (9:50ish) this morning to drive patient to [facility] for dialysis appt today. * Tammie Yeboah - 2018 9:20 AM EST Images from the original note were not included. Office of Care Management/Cardiology Nurse Patient Name: Christy Ambrose : 1960 Patient has been offered an assisted living bed at [facility] for today. [facility] [employer] will pick Mr. Ambrose up at the [place] [facility] at 9am on August 08 en route to [facility] for dialysis. 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 Info to accompany patient: Narcotic Prescriptions Copies of Medication Administration Records and IV sheets for past 10 days. Plan: Cardiology Nurse will be available to the patient and Sound Recordist-RN and/or Social Workerfor further assistance. Patient will be discharged to: [facility] [address] [place] [address] Tammie Yeboah Cardiology Nurse * Erwin Dolan MD - 2018 9:16 AM EST Hospital Medicine - Attending Day of Discharge Documentation Discharge diagnosis Active Hospital Problems Diagnosis ??? Acute renal failure ??? SDH (subdural hematoma) ??? Hypertension ??? Epilepsy Resolved Hospital Problems Diagnosis Date Resolved ??? Increased anion gap metabolic acidosis 08/03/2018 ??? Hypernatremia 08/03/2018 Secondary Issues Active Non-Hospital Problems Diagnosis ??? Kidney transplant failure ??? CKD (chronic kidney disease) stage 5, GFR less than 15 ml/min ??? Hypertension secondary to other renal disorders ??? Renal osteodystrophy ??? RTA (renal tubular acidosis) ??? Anemia of chronic renal failure ??? Subarachnoid hemorrhage ??? Surgery follow-up ??? Primary papillary carcinoma of left kidney ??? Gastrointestinal hemorrhage ??? Bradycardia ??? Left renal mass ??? Weight loss ??? CKD (chronic kidney disease) stage 4, GFR 15-29 ml/min ??? 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 [facility]CI current use of immunosuppressive drug ??? H/O [...] skin) ??? IgA nephropathy ??? Gout ??? Left leg DVT I have personally seen and examined the patient and they are ready for discharge. Select the appropriate statement that describes your involvement and care and omit the other: I spent <30 minutes (Day of Discharge Code 76041) involved in the final examination of the patient, discussion of the hospital stay, instructions for continuing care to all relevant caregivers, and preparation of discharge records, prescriptions and referral forms Plans ? Discharge to [facility] ? Follow-up scheduled with Nephrology, Neurosurgery ? Please see the Discharge Summary for complete details of any medication changes and additional plans. * Anel Villar RN - 2018 9:00 AM EST Pt is Alert, intermittently disoriented to situation. VSS on RA, complains of no pain. Scheduled meds given. Pt 1 assist with walker. AVS printed, discharge summary and medication list printed and placed in envelope. All questions answered. Pt left with a ride that was sent from [facility] for dialysis and will be picked up by [facility] where he will be staying. RDO * Kady Rossi RN - 2018 9:00 AM EST Office of Care Management employment evaluator/case manager Kady Rossi (pager [phone]) Patient: Christy Ambrose : 1960 (58 y.o.) Home: [facility] [address]* LOS: 10 days Received call from [facility] SAVANNA Proctor [phone] ext. [phone] that patient has lost his discharge Rxs and they need a medication list that has electronically signedby or the MD's signature on it. Notified [facility]200 who will fax a signed medication list to [phone]. PCP: Carroll Fuentes, DO, Future Appointments Date Time Provider Department Center 08/18/2018 11:45 AM Chanel Smith MD [facility] [address] 08/18/2018 3:[address] [facility] CT [address] [facility] Patient Active Problem List Diagnosis Code ??? [...] ml/min N18.4 ??? 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 [facility]CI current use of immunosuppressive drug Z79.899 ??? [...] acidosis) N25.89 ??? Acute renal failure N17.9 * Raulito Paulino MD - 2018 7:24 AM EST Neurology Consult Progress Note Patient name: Christy Ambrose Date of : 1960 PCP: Carroll Fuentes DO CC: Seizure ID: Christy Ambrose is a 58 y.o. M with hx TBI, LEFT SDH on routine followup CT scan following RIGHT frontal tSAH 06/02/19, ESRD from IgA nephropathy s/p renal transplant 11/2002 c/b tacrolimus toxicity, papillary renal cancer s/p kenaitze left nephrectomy 2016 who is admitted for renal decline and HD. Course complicated by PEA arrest after bleeding from his fistula with seizure on 08/03. Neurology was consulted for stroke alert 08/03 for right hemibody weakness, aphasia post seizure. CTH repeat with stable SDH. Interval Events - Stable neurologically, no clinical seizure or acute events - Continued on keppra - Pending discharge to rehab this am Current Medications: Scheduled Meds: ??? carvedilol 12.5 mg Oral BID WC ??? levETIRAcetam 500 mg Oral Nightly And ??? levETIRAcetam 500 mg Oral Daily ??? tacrolimus 1 mg Oral BID ??? calcium carbonate 1,000 mg Oral TID WC ??? hydrALAZINE 100 mg Oral TID ??? losartan 100 mg Oral Daily ??? allopurinol 100 mg Oral Daily ??? levothyroxine 100 mcg Oral QAM ??? pantoprazole 20 mg Oral BID ??? sodium chloride 0.9 % 5 mL Intravenous BID ??? amLODIPine 10 mg Oral Daily Continuous Infusions: PRN Meds:.sodium chloride 0.9 %, lidocaine, prochlorperazine, acetaminophen, senna-docusate Physical Exam: Vitals: Temp: [36.2 ??C (97.2 ??F)-37.2 ??C (99 ??F)] Heart Rate: [60-76] Resp: [16-18] BP: (128-149)/(82-98) SpO2: [93 %-97 %] Heart Rate from SPO2: [60 bpm-68 bpm] Gen: NAD Neck: Supple CV: + S1, S2, RRR, no murmur Resp: CTA B/L Abd: non distended Ext: No edema. No bony deformity Neuro Exam: MS: AAOx4 CN: PERRL, EOMI, no field cut Word finding diff improved Facial sensation intact No facial asymmetry Motor: Normal bulk and tone. 5/5 all groups R UE and RLE 4/5 LUE (baseline weakness L arm) Sensation: Intact to light touch throughout Reflexes: Toes - R down, L down Coordination: Finger to nose intact, no dysmetria Rapid alternating movements & finger tapping smooth and symmetric Heel-parnell intact No tremor Gait: deferred Labs: Recent Results (from the past 24 hour(s)) PTH Result Value Ref Range PTH 122 (H) 15 - 65 pg/mL Basic Metabolic Panel (non-fasting) Result Value Ref Range Glucose Lvl 88 65 - 199 mg/dL BUN 27 (H) 10 - 20 mg/dL Creatinine 4.69 (H) 0.80 - 1.50 mg/dL Sodium 134 (L) 135 - 145 mmol/L Potassium 4.0 3.5 - 5.0 mmol/L Chloride 98 98 - 107 mmol/L CO2 25 22 - 31 mmol/L Anion Gap 11 5 - 15 mmol/L Calcium 7.7 (L) 8.5 - 10.5 mg/dL eGFR 13 (L) >=60 mL/min/1.73 m?? eGFR 15 (L) >=60 mL/min/1.73 m?? Phosphorus Result Value Ref Range Phosphorus 3.1 2.5 - 4.5 mg/dL Diagnostic Tests and Imaging: CTH 08/03 1. Unchanged size of the mixed attenuation left subdural hematoma. 2. Unchanged local mass effect. 3. No new areas of acute intracranial hemorrhage. Routine EEG- final report pending Assessment and Plan: This is a 57 yo M with hx TBI, LEFT SDH on routine followup CT scan following RIGHT frontal tSAH 06/02/19, ESRD from IgA nephropathy sp renal tx and nephrectomy admitted for renal decline. Had PEA arrest after bleeding from his fistula who neurology was consulted on 08/03 as stroke alert for right hemibody weakness, aphasia following which immediately happened a generalized tonic- clonic seizure. Pt has been seizure free since 08/03. Routine EEG completed, no epileptiform activity, final report pending . Continued on keppra 500mg bid. Would add extra 250mg dose post HD days. Pt will be discharged today. NS following for SDH and keppra mgm. Recommendations - Continue keppra 500 mg BID, add extra 250mg keppra dose after each HD session Recommendations as above. General Neurology will sign off. Raulito Paulino MD 2018 Neurology resident, PGY-3 Consult neurology service pager [phone] Standard [facility] Swallow Screen: This screen is to be used to document a Swallow Screen prior to ingestion of water and /or oral medications for patients with possible stroke (Ischemic or Hemorrhagic). Exclusion Criteria: A swallow screen is not to be performed on patients who: ?? have a decreased level of consciousness. ?? are not able to follow simple commands. ?? are hypoxic, or have increasing O2 needs or may need to be intubated. ?? have a G/J tube for nutrition. ?? have a recent history of a swallowing disorder *These patients should remain NPO (HOLD MEDS) and the physician notified for further orders. Swallow Screen Using Water: None of the Exclusion Criteria as mentioned above is present? Patient is alert and sitting upright? Able to close lips and tongue is midline? Able to cough, manage oral secretions with dry voice? ONLY IF ABOVE ALL YES, Able to swallow 30 ml of water without coughing, displaying a wet voice or choking? Repeat Twice. ??? If YES to all responses, proceed with water and oral medications as well as diet as medical provider deems appropriate. Consider PIG CASTER consult for full evaluation and diet recommendations. ??? If NO to any of the responses, stop immediately, keep patient NPO and notify physician. ??? * Erwin Dolan MD - 08/07/2018 4:31 PM EST Hospital Medicine Attending Daily Progress Note Admit Date: 07/29/2018 Hospital Day 9 days Active Hospital Problems Diagnosis ??? Acute renal failure ??? SDH (subdural hematoma) ??? Hypertension ??? Epilepsy Resolved Hospital Problems Diagnosis Date Resolved ??? Increased anion gap metabolic acidosis 08/03/2018 ??? Hypernatremia 08/03/2018 [facility] Active Non-Hospital Problems Diagnosis ??? Kidney transplant failure ??? CKD (chronic kidney disease) stage 5, GFR less than 15 ml/min ??? Hypertension secondary to other renal disorders ??? Renal osteodystrophy ??? RTA (renal tubular acidosis) ??? Anemia of chronic renal failure ??? Subarachnoid hemorrhage ??? Surgery follow-up ??? Primary papillary carcinoma of left kidney ??? Gastrointestinal hemorrhage ??? Bradycardia ??? Left renal mass ??? Weight loss ??? CKD (chronic kidney disease) stage 4, GFR 15-29 ml/min ??? 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 H/O [...] skin) ??? IgA nephropathy ??? Gout ??? Left leg DVT Inpatient Medications: Scheduled ??? carvedilol 12.5 mg Oral BID WC ??? levETIRAcetam 500 mg Oral Nightly And ??? levETIRAcetam 500 mg Oral Daily ??? tacrolimus 1 mg Oral BID ??? calcium carbonate 1,000 mg Oral TID WC ??? hydrALAZINE 100 mg Oral TID ??? losartan 100 mg Oral Daily ??? allopurinol 100 mg Oral Daily ??? levothyroxine 100 mcg Oral QAM ??? pantoprazole 20 mg Oral BID ??? sodium chloride 0.9 % 5 mL Intravenous BID ??? amLODIPine 10 mg Oral Daily Continuous infusions: PRN: labetalol, sodium chloride 0.9 %, lidocaine, prochlorperazine, acetaminophen, senna-docusate Interval History: No new events overnight He is feeling fine today and is without complaints. Feels his thinking has been improving. Thinks he is near his baseline Eating, drinking well. Denies confusion, sob/cp, headaches, visual changes, abdominal pain, n/v, d/c, f/c, tremors. BP generally well controlled, 120s-150s. HR in 60s. Physical Exam Vitals Range last 24 hrs Temperature Temp: [36.1 ??C (97 ??F)-36.8 ??C (98.2 ??F)] Heart Rate Heart Rate: [60-67] Blood Pressure BP: (128-154)/(78-104) Respiratory Rate Resp: [16-20] SpO2 SpO2: [94 %-97 %] Intake/Output Summary (Last 24 hours) at 08/07/2018 1631 Last data filed at 08/07/2018 1259 Gross per 24 hour Intake 1335 ml Output -- Net 1335 ml Patient Vitals for the past 168 hrs: Weight 08/07/18 1606 94.1 kg (207 lb 6.4 oz) 08/06/18 0500 93.9 kg (207 lb 0.2 oz) 08/05/18 1036 93.3 kg (205 lb 11.2 oz) 08/03/18 1626 97.3 kg (214 lb 9.6 oz) 08/03/18 0322 96.7 kg (213 lb 1.6 oz) 08/02/18 0626 98.2 kg (216 lb 7.9 oz) 08/01/18 0533 103.5 kg (228 lb 1.6 oz) Body mass index is 29.53 kg/m??. Physical Exam GEN: NAD, in bed, anasarca present HEENT: at/nc, anicteric CV: RRR, no m/r/g PULM: cta b/l ABD: soft, nt/nd, nabs EXT: 2+ pitting edema throughout NEURO: alert and oriented x 3 although some perseveration and confusion on details of care, CN 2-12wnl, strength 5/5 throughout, sensation intact to lighttouch throughout. SKIN: diffuse erythematous papules on back and chest Line: Right tunneled HD cath Studies reviewed in eDH. Remarkable for the following: LABS: Last 3 wbc, hgb, hct plt Recent Labs 08/03/18 1909 07/29/18 2136 07/19/18 0941 WBC 4.7 3.8* 4.2 HGB 9.2* 9.2* 8.8* HCT 28.6* 28.9* 27.3* PLATELET 149 105* 145 Last 3 Lytes Recent Labs 08/06/18 0632 08/04/18 0434 08/03/18 1909 NA 141 138 137 K 3.7 4.1 4.7 CL 99 101 99 CO2 25 23 22 BUN 26* 35* 33* CREATININE 4.90* 5.61* 5.35* Last 3 LFTs Recent Labs 07/19/18 0941 06/07/18 1042 05/25/18 0830 AST 17 ALT 11 13 10 ALKPHOS 101 100 91 BILITOT 0.3 0.4 0.2 Assessment / Plan: 57 y.o. 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 Also with recent SDH followed by NS noted to have expanded some on repeat image done 08/01/18 but stable since. Course complicated by seizure on 08/03/18. ?? # Acute on chronic renal injury with IgA Nephropathy - start of HD 07/30/18 Possibly recurrence of primary disease, medication toxicity, graft failure. Presents with apparent volume overload (anasarca, Chronic non-cardiac pulmonary edema due to fluid overload) and uremia. Improving fluid and uremia and BP with HD. - Cont HD per renal recommendations - HD T//Wed (last 08/06) - BP control - improved with switch metop -> carvedilol - Hold calcitriol and sodium bicarb per nephro - Calcium carb for phos bind - F/u PTH - F/u additional nephro recs - Have d/c cellcept and changed tacrolimus to 1 mg bid # SDH: subacute. Asymptomatic - Repeat CT head stable - q4 hr neuro checks - NS consult appreciated - Avoid antiplts/anticoags - Repeat head CT in 1 week (~08/11) # Seizure: Has history of such. Possible precipitant would be his head injury and recent uremia. - Con Keppra at 500 mg bid (now at max dose) - S/p EEG 08/05; read pending - Appreciate Neurology recs - will give ativan if additional seizures ?? # HTN: Improving - Increased amlodipine to 10 mg qd on admission - restarted home losartan 07/31 - Continue hydralazine 100 mg TID - Changed metoprolol to carvedilol 08/05. - D/C lasix now that he is starting HD # Hypothyroidism - Home levothyroxine 100 mcg qAM Dispo: plan to send to rehab on Wednesday, he will have HD in [facility] IV access: PIV Tubes/Drains:none DVT PPX: SCD Anticipated Disposition: Wednesday Team Pager( Coverage 01/02): #[phone] PCP: Carroll Fuentes DO [phone] Attestation: IPI Certification I certify that I am a D-H credentialed attending provider with admitting privileges and that the patient meets or has met medical necessity to require an inpatient IPI level of care meeting a minimumof two midnights or is on the [facility] inpatient only procedure list (status C) due to: acute kidney injury necessitating close monitoring of fluid balance such as intravenous fluids and/or titration of medication to achieve optimal effect and minimize the chance of immediate or severe side effects Erwin Dolan MD 08/07/2018 * Erwin Dolan MD - 08/06/2018 5:20 PM EST Hospital Medicine Attending Daily Progress Note Admit Date: 07/29/2018 Hospital Day 8 days Active Hospital Problems Diagnosis ??? Acute renal failure ??? SDH (subdural hematoma) ??? Hypertension ??? Epilepsy Resolved Hospital Problems Diagnosis Date Resolved ??? Increased anion gap metabolic acidosis 08/03/2018 ??? Hypernatremia 08/03/2018 [facility] Active Non-Hospital Problems Diagnosis ??? Kidney transplant failure ??? CKD (chronic kidney disease) stage 5, GFR less than 15 ml/min ??? Hypertension secondary to other renal disorders ??? Renal osteodystrophy ??? RTA (renal tubular acidosis) ??? Anemia of chronic renal failure ??? Subarachnoid hemorrhage ??? Surgery follow-up ??? Primary papillary carcinoma of left kidney ??? Gastrointestinal hemorrhage ??? Bradycardia ??? Left renal mass ??? Weight loss ??? CKD (chronic kidney disease) stage 4, GFR 15-29 ml/min ??? 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 H/O [...] skin) ??? IgA nephropathy ??? Gout ??? Left leg DVT Inpatient Medications: Scheduled ??? carvedilol 12.5 mg Oral BID WC ??? levETIRAcetam 500 mg Oral Nightly And ??? levETIRAcetam 500 mg Oral Daily ??? tacrolimus 1 mg Oral BID ??? calcium carbonate 1,000 mg Oral TID WC ??? hydrALAZINE 100 mg Oral TID ??? losartan 100 mg Oral Daily ??? allopurinol 100 mg Oral Daily ??? levothyroxine 100 mcg Oral QAM ??? pantoprazole 20 mg Oral BID ??? sodium chloride 0.9 % 5 mL Intravenous BID ??? amLODIPine 10 mg Oral Daily Continuous infusions: PRN: labetalol, sodium chloride 0.9 %, lidocaine, prochlorperazine, acetaminophen, senna-docusate Interval History: No new events overnight He is feeling fine today and is without complaints. Feels his thinking has been improving. Eating, drinking well. Denies confusion, sob/cp, headaches, visual changes, abdominal pain, n/v, d/c, f/c, tremors. Physical Exam Vitals Range last 24 hrs Temperature Temp: [36.2 ??C (97.2 ??F)-36.7 ??C (98.1 ??F)] Heart Rate Heart Rate: [51-61] Blood Pressure BP: (131-162)/(80-95) Respiratory Rate Resp: [18-20] SpO2 SpO2: [94 %-98 %] Intake/Output Summary (Last 24 hours) at 08/06/2018 1720 Last data filed at 08/06/2018 1425 Gross per 24 hour Intake 1190 ml Output 3000 ml Net -1810 ml Patient Vitals for the past 168 hrs: Weight 08/06/18 0500 93.9 kg (207 lb 0.2 oz) 08/05/18 1036 93.3 kg (205 lb 11.2 oz) 08/03/18 1626 97.3 kg (214 lb 9.6 oz) 08/03/18 0322 96.7 kg (213 lb 1.6 oz) 08/02/18 0626 98.2 kg (216 lb 7.9 oz) 08/01/18 0533 103.5 kg (228 lb 1.6 oz) Body mass index is 29.47 kg/m??. Physical Exam GEN: NAD, in bed, anasarca present HEENT: at/nc, anicteric CV: RRR, no m/r/g PULM: cta b/l ABD: soft, nt/nd, nabs EXT: 2+ pitting edema throughout NEURO: alert and oriented x 3 although some perseveration and confusion on details of care, CN 2-12wnl, strength 5/5 throughout, sensation intact to lighttouch throughout. SKIN: diffuse erythematous papules on back and chest Line: Right tunneled HD cath Studies reviewed in eDH. Remarkable for the following: LABS: Last 3 wbc, hgb, hct plt Recent Labs 08/03/18 1909 07/29/18 2136 07/19/18 0941 WBC 4.7 3.8* 4.2 HGB 9.2* 9.2* 8.8* HCT 28.6* 28.9* 27.3* PLATELET 149 105* 145 Last 3 Lytes Recent Labs 08/06/18 0632 08/04/18 0434 08/03/18 1909 NA 141 138 137 K 3.7 4.1 4.7 CL 99 101 99 CO2 25 23 22 BUN 26* 35* 33* CREATININE 4.90* 5.61* 5.35* Last 3 LFTs Recent Labs 07/19/18 0941 06/07/18 1042 05/25/18 0830 AST 18 19 17 ALT 11 13 10 ALKPHOS 101 100 91 BILITOT 0.3 0.4 0.2 Assessment / Plan: 57 y.o. 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 Also with recent SDH followed by NS noted to have expanded some on repeat image done 08/01/18 but stable since. Course complicated by seizure on 08/03/18. ?? # Acute on chronic renal injury with IgA Nephropathy - start of HD 07/30/18 Possibly recurrence of primary disease, medication toxicity, graft failure. Presents with apparent volume overload (anasarca, Chronic non-cardiac pulmonary edema due to fluid overload) and uremia. Improving fluid and uremia and BP with HD. - Cont HD per renal recommendations - HD T//Sat (last 08/06) - BP control - improved with switch metop -> carvedilol - Hold calcitriol and sodium bicarb per nephro - Calcium carb for phos bind - F/u additional nephro recs - Have d/c cellcept and changed tacrolimus to 1 mg bid # SDH: subacute. Asymptomatic - Repeat CT head stable - q4 hr neuro checks - NS consult appreciated - Avoid antiplts/anticoags - Repeat head CT in 1 week (~08/11) # Seizure: Has history of such. Possible precipitant would be his head injury and recent uremia. - Con Keppra at 500 mg bid (now at max dose) - S/p EEG 08/05; read pending - Appreciate Neurology recs - will give ativan if additional seizures ?? # HTN: Still a problem but asymptomatic and overall improving. - Increased amlodipine to 10 mg qd on admission - cont prn labetalol - restarted home losartan 07/31 - Continue hydralazine 100 mg TID - Will d/c dilt - Changed metoprolol to carvedilol 08/05 - D/C lasix now that he is starting HD ?? # Hypothyroidism - Home levothyroxine 100 mcg qAM Dispo: plan to send to rehab on Wednesday, he will have HD in [facility] IV access: PIV Tubes/Drains:none DVT PPX: SCD Anticipated Disposition: Wednesday Team Pager( Coverage 01/02): #[phone] PCP: Carroll Fuentes DO [phone] Attestation: IPI Certification I certify that I am a D-H credentialed attending provider with admitting privileges and that the patient meets or has met medical necessity to require an inpatient IPI level of care meeting a minimumof two midnights or is on the [facility] inpatient only procedure list (status C) due to: acute kidney injury necessitating close monitoring of fluid balance such as intravenous fluids and/or titration of medication to achieve optimal effect and minimize the chance of immediate or severe side effects Erwin Dolan MD 08/06/2018 * Mayra Huggins RN - 08/06/2018 12:37 PM EST Dialysis Arrival: Christy Ginna Ambrose arrived to dialysis @ 0823 from room 138A report provided by SAVANNA Kennedy. Pt oriented toself, situation and place but disoriented to time today. Dialysis Catheter accessed by Alicja Gonzalze RN without issue or concern. Patient watching TV and resting comfortably in bed with no questions or concerns at time. Labs collected prior to HD treatment. Transfer to: 138A Dialysis Treatment length: 4 hours Dialysis Fluid Removed: 3 L Report called to SAVANNA Kennedy. Dialysis Catheter deaccessed by Alicja Gonzalez RN without issue or concern. Patient denied any s/s during treatment. Vitals while in HD (also see flow sheet): Vitals: 08/06/18 0500 08/06/18 0829 08/06/18 1036 08/06/18 1234 BP: 136/81 (!) 162/92 131/82 (!) 148/95 BP Location (NBP): Right arm Right arm Right arm Right arm Patient Position: Lying Lying Lying Lying Pulse: 60 Resp: 18 20 20 Temp: 36.5 ??C (97.7 ??F) 36.7 ??C (98.1 ??F) 36.7 ??C (98.1 ??F) TempSrc: Oral Oral Oral SpO2: 94% 96% 97% 98% Weight: 93.9 kg (207 lb 0.2 oz) Height: * Radha Hughes - 08/06/2018 12:22 PM EST HYPERTENSION/ NEPHROLOGY PROGRESS NOTE PATIENT: Christy Ambrose : 1960 REASON FOR CONSULTATION: Volume overload and uncontrolled HTN failed transplant for DINING ROOM COORDINATOR ID: [id number] y/o with PMH of ESRD secondary to IgA nephropathy s/p donor renal transplant in 2002 (complicated by delayed graft function, recurrent IgA nephropathy and Prograf toxicity) on immunosuppression therapy (tacrolimus and??mycophenolate), 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 Subjective;No acute events overnight.Seen on HD and tolerated procedure well. PHYSICAL EXAM: Intake/Output Summary (Last 24 hours) at 08/06/20182121 Last data filed at 08/06/2018 1732 Gross per 24 hour Intake 1190 ml Output 3000 ml Net -1810 ml Last value Range last 24 hrs Temperature Temp: 36.1 ??C (97 ??F) Temp: [36.1 ??C (97 ??F)-36.8 ??C (98.2 ??F)] Heart Rate Heart Rate: 60 Heart Rate: [60-67] Blood Pressure BP: (!) 154/100 BP: (131-162)/(78-104) Respiratory Rate Resp: 18 Resp: [18-20] SpO2 SpO2: 95 % SpO2: [94 %-98 %] Appearance - Alert,NAD Skin - No exanthem. HEENT - Sclera white. Mucous membranes moist. Chest: Bilateral good air entry,no wheezing/creps/crackles. Heart - S1 and S2 clear w/o murmur, gallop, or rub. JVP not elevated. Abd - Soft. + BS. No bruit. Non tender. ,significant pitting sacral edema. Ext - Cameron UE/LE edema improving Neuro -able ot move all extremities and has good stregnth cameron UE/LE STUDIES: Labs: CBC: Recent Labs 08/03/18 1909 07/29/18 2136 07/19/18 0941 WBC 4.7 3.8* 4.2 HGB 9.2* 9.2* 8.8* PLATELET 149 105* 145 Chemistry: Recent Labs 08/06/18 0632 08/04/18 0434 08/03/18 1909 NA 141 138 137 K 3.7 4.1 4.7 CL 99 101 99 CO2 25 23 22 BUN 26* 35* 33* CREATININE 4.90* 5.61* 5.35* GLUCOSE 90 91 131 Recent Labs 08/06/18 0632 08/04/18 0434 08/03/18 1909 08/03/18 0402 08/02/18 0448 08/01/18 0435 07/29/18 2136 07/19/18 0941 06/07/18 1042 CALCIUM 7.6* 7.6* 8.0* 7.7* 7.2* 7.3* < > 8.1* 7.7* 7.7* 7.9* 7.9* MAGNESIUM -- -- -- -- -- -- -- 1.02 0.89 0.83 PHOS -- -- -- 3.9 5.3* 6.7* -- 7.5* 6.7* 5.3* < > = values in this interval not displayed. 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. - Strict Is and Os,daily weights - Avoid nephrotoxins ,NSAID's and renally dose medications -D/C Cellcept.Continue tacrolimus at 1mg PO BID and levels does not yvette to be checked as per (Transplant) # Bone and Mineral Disease: Calcium levels are low and Phos levels improved.Continue tums 2 tabs TID with meals.Check PTH levels # Hypertension : BP improving .On losartan 100mg,Diltizem 120,Hydralazine 100 mg PO TID,Amlodipine 10 mg,labetolol prn.Off diltiazem and changed metoprolol to coreg for better BP control.Monitor and adjust meds as needed We will continue to follow patient with you Seen and Discussed w/ Dr.Brant Radha Hughes Nephrology Fellow [phone] Associated attestation - Crystal Mcdermott MD - 08/07/2018 9:55 AM EST The patient was seen and examined with the nephrology fellow. Please see the nephrology fellow's note from today for details. I have reviewed the fellow's note and agree with the exam, and assessmentand plan. Patient had dialysis today. Stable treatment. No issues with dialysis or access. Crystal Mcdermott MD * Sabrina lFynn III, MD - 08/05/2018 4:45 PM EST Hospital Medicine Attending Daily Progress Note Admit Date: 07/29/2018 Hospital Day 7 days Active Hospital Problems Diagnosis ??? Acute renal failure ??? SDH (subdural hematoma) ??? Hypertension ??? Epilepsy Resolved Hospital Problems Diagnosis Date Resolved ??? Increased anion gap metabolic acidosis 08/03/2018 ??? Hypernatremia 08/03/2018 PMH Active Non-Hospital Problems Diagnosis ??? Kidney transplant failure ??? CKD (chronic kidney disease) stage 5, GFR less than 15 ml/min ??? Hypertension secondary to other renal disorders ??? Renal osteodystrophy ??? RTA (renal tubular acidosis) ??? Anemia of chronic renal failure ??? Subarachnoid hemorrhage ??? Surgery follow-up ??? Primary papillary carcinoma of left kidney ??? Gastrointestinal hemorrhage ??? Bradycardia ??? Left renal mass ??? Weight loss ??? CKD (chronic kidney disease) stage 4, GFR 15-29 ml/min ??? 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 [facility] current use of immunosuppressive drug ??? H/O [...] skin) ??? IgA nephropathy ??? Gout ??? Left leg DVT Inpatient Medications: Scheduled ??? levETIRAcetam 500 mg Oral Nightly And ??? levETIRAcetam 500 mg Oral Daily ??? tacrolimus 1 mg Oral BID ??? calcium carbonate 1,000 mg Oral TID WC ??? hydrALAZINE 100 mg Oral TID ??? metoprolol succinate 200 mg Oral Nightly ??? losartan 100 mg Oral Daily ??? allopurinol 100 mg Oral Daily ??? dilTIAZem 120 mg Oral Daily ??? levothyroxine 100 mcg Oral QAM ??? pantoprazole 20 mg Oral BID ??? sodium chloride 0.9 % 5 mL Intravenous BID ??? amLODIPine 10 mg Oral Daily Continuous infusions: PRN: labetalol, sodium chloride 0.9 %, lidocaine, prochlorperazine, acetaminophen, senna-docusate Interval History: No new events overnight He is feeling fine today and is without complaints. Neuro recommending EEG given Sz two days ago and continued word finding difficulties. Denies confusion, sob/cp, headaches, visual changes, abdominal pain, n/v, d/c, f/c, tremors. Physical Exam Vitals Range last 24 hrs Temperature Temp: [36.3 ??C (97.3 ??F)-37.1 ??C (98.8 ??F)] Heart Rate Heart Rate: [52-60] Blood Pressure BP: (134-162)/(86-98) Respiratory Rate Resp: [18-20] SpO2 SpO2: [93 %-95 %] Intake/Output Summary (Last 24 hours) at 08/05/2018 1645 Last data filed at 08/05/2018 0838 Gross per 24 hour Intake 215 ml Output -- Net 215 ml Patient Vitals for the past 168 hrs: Weight 08/05/18 1036 93.3 kg (205 lb 11.2 oz) 08/03/18 1626 97.3 kg (214 lb 9.6 oz) 08/03/18 0322 96.7 kg (213 lb 1.6 oz) 08/02/18 0626 98.2 kg (216 lb 7.9 oz) 08/01/18 0533 103.5 kg (228 lb 1.6 oz) 07/30/18 0055 101.2 kg (223 lb 1.7 oz) Body mass index is 29.28 kg/m??. Physical Exam GEN: NAD, in bed, anasarca present HEENT: at/nc, anicteric CV: RRR, no m/r/g PULM: cta b/l ABD: soft, nt/nd, nabs EXT: 3+ pitting edema throughout NEURO: alert and oriented x 3 although some perseveration and confusion on details of care, CN 2-12wnl, strength 5/5 throughout, sensation intact to lighttouch throughout. SKIN: diffuse erythematous papules on back and chest Line: Right tunneled HD cath Studies reviewed in eDH. Remarkable for the following: LABS: Last 3 wbc, hgb, hct plt Recent Labs 08/03/18 19007/29/18 2136 07/19/18 0941 WBC 4.7 3.8* 4.2 HGB 9.2* 9.2* 8.8* HCT 28.6* 28.9* 27.3* PLATELET 149 105* 145 Last 3 Lytes Recent Labs 08/04/18 0434 08/03/18 1909 08/03/18 0402 NA 138 137 139 K 4.1 4.7 4.0 CL 101 99 102 CO2 23 22 24 BUN 35* 33* 29* CREATININE 5.61* 5.35* 4.70* Last 3 LFTs Recent Labs 07/19/18 0941 06/07/18 1042 05/25/18 0830 AST 18 19 17 ALT 11 13 10 ALKPHOS 101 100 91 BILITOT 0.3 0.4 0.2 Assessment / Plan: 57 y.o. 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 Also with recent SDH followed by NS noted to have expanded some on repeat image done 08/01/18 but stable since. Course complicated by seizure on 08/03/18. ?? # Acute on chronic renal injury with IgA Nephropathy - start of HD 07/30/18 Possibly recurrence of primary disease, medication toxicity, graft failure. Presents with apparent volume overload (anasarca, Chronic non-cardiac pulmonary edema due to fluid overload) and uremia. Improving fluid and uremia and BP with HD. - Cont HD per renal recommendations - next HD Wednesday - BP control - Hold calcitriol and sodium bicarb per nephro - Calcium carb for phos bind - F/u additional nephro recs - Have d/c cellcept and changed tacrolimus to 1 mg bid # SDH: subacute. Asymptomatic - Repeat CT head stable - q4 hr neuro checks - NS consult appreciated - Avoid antiplts/anticoags - Repeat head CT in 1 week # Seizure: Has history of such. Possible precipitant would be his head injury and recent uremia. - Con Keppra at 500 mg bid (now at max dose) - EEG today - Appreciate Neurology recs - will give ativan if additional seizures ?? # HTN: Still a problem but asymptomatic and overall improving. - Increased amlodipine to 10 mg qd on admission - cont prn labetalol - restarted home losartan 07/31 - Continue hydralazine 100 mg TID - Will d/c dilt - Will change metoprolol to carvedilol - D/C lasix now that he is starting HD ?? # Hypothyroidism - Home levothyroxine 100 mcg qAM Dispo: plan to send to rehab on Wednesday, he will have HD in [facility] IV access: PIV Tubes/Drains:none DVT PPX: SCD Anticipated Disposition: Wednesday Team Pager( Coverage 01/02): #[phone] PCP: Carroll Fuentes DO [phone] Attestation: IPI Certification I certify that I am a D-H credentialed attending provider with admitting privileges and that the patient meets or has met medical necessity to require an inpatient IPI level of care meeting a minimumof two midnights or is on the CMS inpatient only procedure list (status C) due to: acute kidney injury necessitating close monitoring of fluid balance such as intravenous fluids and/or titration of medication to achieve optimal effect and minimize the chance of immediate or severe side effects SABRINA FLYNN III, MD 08/05/2018 * Joanna Jeffers RN - 08/05/2018 2:55 PM EST Christy is anticipated to be medically ready for discharge within next 24 hours, once he receives HD. He has been offered a bed at [facility] living but they do not admit over the weekend. The plan for discharge is that Christy will be picked up at 9:00 AM Wednesday morning by [facility], who will take him to his first HD appointment at [facility] Address: [address] [place] [phone] [facility] will arrange to pick Christy up after his HD session. This plan was formulated with input from patient, family and team. All are in agreement with plan. Ysabel Jeffers RN Case Manager [phone] Pager #[phone] * Radha Hughes - 08/05/2018 12:30 PM EST HYPERTENSION/ NEPHROLOGY PROGRESS NOTE PATIENT: Christy Ambrose : 1960 REASON FOR CONSULTATION: Volume overload and uncontrolled HTN failed transplant for DINING ROOM COORDINATOR ID: 57 y/o with PMH of ESRD secondary to IgA nephropathy s/p donor renal transplant in 2002 (complicated by delayed graft function, recurrent IgA nephropathy and Prograf toxicity) on immunosuppression therapy (tacrolimus and??mycophenolate), 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 Subjective; No acute events overnight. Saturating well on room air.Anasarca improving. Denies any chest pain or shortness of breath. PHYSICAL EXAM: Intake/Output Summary (Last 24 hours) at 08/05/2018 1830 Last data filed at 08/05/2018 1750 Gross per 24 hour Intake 695 ml Output -- Net 695 ml Last value Range last 24 hrs Temperature Temp: 36.2 ??C (97.2 ??F) Temp: [36.2 ??C (97.2 ??F)-37.1 ??C (98.8 ??F)] Heart Rate Heart Rate: 52 Heart Rate: [52-60] Blood Pressure BP: 139/80 BP: (134-162)/(80-98) Respiratory Rate Resp: 20 Resp: [18-20] SpO2 SpO2: 96 % SpO2: [93 %-96 %] Appearance - Alert,NAD Skin - No exanthem. HEENT - Sclera white. Mucous membranes moist. Chest: Bilateral good air entry,no wheezing/creps/crackles. Heart - S1 and S2 clear w/o murmur, gallop, or rub. JVP not elevated. Abd - Soft. + BS. No bruit. Non tender. ,significant pitting sacral edema. Ext - Cameron UE/LE edema improving Neuro -able ot move all extremities and has good stregnth cameron UE/LE STUDIES: Labs: CBC: Recent Labs 08/03/18190807/29/18213507/19/18 0941 WBC 4.7 3.8* 4.2 HGB 9.2* 9.2* 8.8* PLATELET 149 105* 145 Chemistry: Recent Labs 08/04/18 0434 08/03/18190808/03/18 0402 NA 138 137 139 K 4.1 4.7 4.0 CL 101 99 102 CO2 24 BUN 35* 33* 29* CREATININE 5.61* 5.35* 4.70* GLUCOSE 91 131 92 Recent Labs 08/04/18 0434 08/03/18 19008/03/18 0402 08/02/18 0448 08/01/18 0435 07/29/18213507/19/18 0941 06/07/18 1042 CALCIUM 7.6* 8.0* 7.7* 7.2* 7.3* < > 8.1* 7.7* 7.7* 7.9* 7.9* MAGNESIUM -- -- -- -- -- -- 1.02 0.89 0.83 PHOS -- -- 3.9 5.3* 6.7* -- 7.5* 6.7* 5.3* < > = values in this interval not displayed. LFT's: Recent Labs 07/19/18 0941 06/07/18 1042 05/25/18 0830 BILITOT 0.3 0.4 0.2 ALBUMIN 3.5 3.3 3.5 ALKPHOS 101 100 91 ALT 11 13 10 AST 18 19 17 IMPRESSION/ RECOMMENDATIONS: Christy Ambrose is a 57 y/o with S/p failed DDTxp -2002 with recurrent IgA nephropathy,DGF and prograf toxicity also had left kenaitze kidney nephrectomy due to papillary ca in 2017 presented with uncontrolled blood pressure and anasarca,failed transplant started on iHD # ESRD due to failed Transplant: -ESRD mostly due to acute on chronic rejection and graft failure,Transplant glomerulopathy -Access-R IJ TDC placed 07/30/2018-functioning good -Started on HD 07/30 -HD tomorrow for 4Hrs,4K bath,UF of 3 Kgs -Need to involve care transition coordinator for dialysis placement at [facility]. - Strict Is and Os,daily weights - Avoid nephrotoxins ,NSAID's and renally dose medications -D/C Cellcept.Continue tacrolimus at 1mg PO BID and levels does not yvette to be checked as per (Transplant) # Bone and Mineral Disease: Calcium levels are low and Phos levels improved.Continue tums 2 tabs TID with meals.Check PTH levels # Hypertension : BP improving .On losartan 100mg,Diltizem 120,Hydralazine 100 mg PO TID,Amlodipine 10 mg,labetolol prn.Off diltiazem and changed metoprolol to coreg for better BP control.Monitor and adjust meds as needed We will continue to follow patient with you Seen and Discussed w/ Dr.Brant Radha Hughes Nephrology Fellow [phone] Associated attestation - Crystal Mcdermott MD - 08/05/2018 8:14 PM EST The case was reviewed with the nephrology fellow, Dr. Hughes. Please see the nephrology fellow's note from today for details. I have reviewed the fellow's note and agree with the assessment and plan, which were formulated in discussion with me. * Trever Hdez - 08/05/2018 11:57 AM EST [facility] will pick Mr. Ambrose up at the [place] [facility] at 9am on August 08 en route to [facility] for dialysis. [facility] will call Ysabel/MARIZA on Wednesday a.m. If needed. * Walt Knox, JIMENA - 08/05/2018 10:52 AM EST Continuing to discuss pt's status and situation during multidisciplinary discharge planning rounds. Received email from Jeanine last night re: communication he received from staff at [facility], identifying that [facility] has identified to them they will accept pt for admission. [facility] do confirm their plan to admit Christy on Wednesday. Advised team and pt will get an additional dialysis treatment either today or tomorrow here. The current plan is that we will help transfer/coordinate ride for Christy to the [facility] on Wednesday morning. He has 11:00 AM chair space and they had asked for pt to be there to get him set up a little prior to this to get paperwork completed. Have requested and recommended Lucas help contact them for whatever assistance they need and for which pt would benefit from Lucas's help to get setup. [facility] Address: [address] [place] [address] , [place] [address] Tab reports [facility] staff will pick pt up after his HD to bring him to their facility for admission. They also tell me they will transport him for the first week to HD and will help coordinate his follow-up ride needs through [facility] through his Medicaid. I have communicated this to Lucas and will speak with him by phone at earliest opportunity. Advised team. * Raulito Paulino MD - 08/05/2018 9:04 AM EST Neurology Consult Progress Note Patient name: Christy Ambrose Date of : 1960 PCP: Carroll Fuentes DO CC: Seizure ID: Christy Ambrose is a 57 y.o. M with hx TBI, LEFT SDH on routine followup CT scan following RIGHT frontal tSAH 06/02/19, ESRD from IgA nephropathy s/p renal transplant 11/2002 c/b tacrolimus toxicity, papillary renal cancer s/p kenaitze left nephrectomy 2016 who is admitted for renal decline and HD. Course complicated by PEA arrest after bleeding from his fistula with seizure on 08/03. Neurology was consulted for stroke alert 08/03 for right hemibody weakness, aphasia post seizure. CTH repeat with stable SDH. Interval Events - Increased keppra to 500mg bid - Overnight, stable neurologically, no new focal events - No complaints this am, intermittent word finding difficulty still Current Medications: Scheduled Meds: ??? levETIRAcetam 500 mg Oral Nightly And ??? levETIRAcetam 500 mg Oral Daily ??? tacrolimus 1 mg Oral BID ??? calcium carbonate 1,000 mg Oral TID WC ??? hydrALAZINE 100 mg Oral TID ??? metoprolol succinate 200 mg Oral Nightly ??? losartan 100 mg Oral Daily ??? allopurinol 100 mg Oral Daily ??? dilTIAZem 120 mg Oral Daily ??? levothyroxine 100 mcg Oral QAM ??? pantoprazole 20 mg Oral BID ??? sodium chloride 0.9 % 5 mL Intravenous BID ??? amLODIPine 10 mg Oral Daily Continuous Infusions: PRN Meds:.labetalol, sodium chloride 0.9 %, lidocaine, prochlorperazine, acetaminophen, senna-docusate Physical Exam: Vitals: Temp: [36.8 ??C (98.2 ??F)-37.1 ??C (98.8 ??F)] Heart Rate: [56-68] Resp: [18-20] BP: (134-167)/(86-100) SpO2: [92 %-96 %] Heart Rate from SPO2: [56 bpm-64 bpm] Gen: NAD Neck: Supple CV: + S1, S2, RRR, no murmur Resp: CTA B/L Abd: non distended Ext: No edema. No bony deformity Neuro Exam: MS: AAOx4 CN: PERRL, EOMI, no field cut Intermittent word finding difficulty, paraphasic errors and word substitution with longer conversations Facial sensation intact No facial asymmetry Motor: Normal bulk and tone. 5/5 all groups R UE and RLE 4/5 LUE (baseline weakness L arm) Sensation: Intact to light touch throughout Reflexes: Toes - R down, L down Coordination: Finger to nose intact, no dysmetria Rapid alternating movements & finger tapping smooth and symmetric Heel-parnell intact No tremor Gait: deferred Labs: No results found for this or any previous visit (from the past 24 hour(s)). Diagnostic Tests and Imaging: CTH 08/03 1. Unchanged size of the mixed attenuation left subdural hematoma. 2. Unchanged local mass effect. 3. No new areas of acute intracranial hemorrhage. Assessment and Plan: This is a 57 yo M with hx TBI, LEFT SDH on routine followup CT scan following RIGHT frontal tSAH 06/02/19, ESRD from IgA nephropathy s/p renal transplant 11/2002 c/b tacrolimus toxicity, papillary renal cancer s/p kenaitze left nephrectomy 2017 admitted for renal decline. Had PEA arrest after bleedingfrom his fistula who neurology was consulted on 08/03 as stroke alert for right hemibody weakness, aphasia following which immediately happened a generalized tonic-clonic seizure. Sx resolved shortly thereafter. CTH repeat stable. No seizures since 08/03. Exam today with continued mild and intermittent word finding difficulty. Otherwise reassuring with no significant hemiparesis, neglect, facial droop. Given persistent mild language deficits, however, recommend routine 30min EEG today for evaluation. Agree with renal dosing of keppra as below. For acute rescue seizure management if he were to have more clinical events, recommend ativan 2mg (can be given up to 3x), after which which would consider transition to vimpat all together as we arecurrently maxed out on keppra given his renal status. Recommendations - Continue keppra 500 mg BID, consider extra 250mg after each HD session - Routine 30min EEG (we have placed order) - If further clinical seizure, rescue Ativan 2mg (up to 3x), then consider vimpat loading 400mg followed by vimpat 200mg bid maintenance. Please call neurology should additional clinical events occur. We will fu EEG results and make final recommendations. Raulito Paulino MD 08/05/2018 Neurology resident, PGY-3 Consult neurology service pager [phone] Standard [facility] Swallow Screen: This screen is to be used to document a Swallow Screen prior to ingestion of water and /or oral medications for patients with possible stroke (Ischemic or Hemorrhagic). Exclusion Criteria: A swallow screen is not to be performed on patients who: ?? have a decreased level of consciousness. ?? are not able to follow simple commands. ?? are hypoxic, or have increasing O2 needs or may need to be intubated. ?? have a G/J tube for nutrition. ?? have a recent history of a swallowing disorder *These patients should remain NPO (HOLD MEDS) and the physician notified for further orders. Swallow Screen Using Water: None of the Exclusion Criteria as mentioned above is present? Patient is alert and sitting upright? Able to close lips and tongue is midline? Able to cough, manage oral secretions with dry voice? ONLY IF ABOVE ALL YES, Able to swallow 30 ml of water without coughing, displaying a wet voice or choking? Repeat Twice. ??? If YES to all responses, proceed with water and oral medications as well as diet as medical provider deems appropriate. Consider PIG CASTER consult for full evaluation and diet recommendations. ??? If NO to any of the responses, stop immediately, keep patient NPO and notify physician. ??? Associated attestation - Chidi Bowens MD - 08/05/2018 4:49 PM EST I have seen the patient and reviewed the resident's above history and I agree with the details as written. The assessment and plan were formulated in discussion with me and I agree with them as documented. Chidi Bowens MD * Walt Knox MSW - 08/04/2018 4:45 PM EST Continuing to discuss pt's status and situation during multidisciplinary discharge planning rounds. Communicated to brother Lucas the following: Pt identified as being possibly medically ready as early as tomorrow. [facility] Cannot admit over the week-end. Lucas to contact facility to coordinate pt's admission if this becomes appropriate LOC for d/c needs. Also spoke with Esthela Silverman -[facility]. They report ability to manage a variety of LOC needs. They have requested Rehab notes to assess their ability to admit pt when medically ready. I have faxed PT and OT notes to them f: . They also are not able to admit over theweek-end. Also identified pt has obtained HD chair @ [facility], 11:00 AM. Will assess pt's status in AM and continued d/c plan. Per family-preference as noted is for pt to admit to [facility] as soon as he is able. SNF,-[facility] is alternative should pt require SNF LOC. * Sabrina Flynn III, MD - 08/04/2018 4:33 PM EST Hospital Medicine Attending Daily Progress Note Admit Date: 07/29/2018 Hospital Day 6 days Active Hospital Problems Diagnosis ??? Acute renal failure ??? SDH (subdural hematoma) ??? Hypertension ??? Epilepsy Resolved Hospital Problems Diagnosis Date Resolved ??? Increased anion gap metabolic acidosis 08/03/2018 ??? Hypernatremia 08/03/2018 PM Active Non-Hospital Problems Diagnosis ??? Kidney transplant failure ??? CKD (chronic kidney disease) stage 5, GFR less than 15 ml/min ??? Hypertension secondary to other renal disorders ??? Renal osteodystrophy ??? RTA (renal tubular acidosis) ??? Anemia of chronic renal failure ??? Subarachnoid hemorrhage ??? Surgery follow-up ??? Primary papillary carcinoma of left kidney ??? Gastrointestinal hemorrhage ??? Bradycardia ??? Left renal mass ??? Weight loss ??? CKD (chronic kidney disease) stage 4, GFR 15-29 ml/min ??? 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 H/O [...] skin) ??? IgA nephropathy ??? Gout ??? Left leg DVT Inpatient Medications: Scheduled ??? levETIRAcetam 500 mg Oral Nightly And ??? levETIRAcetam 500 mg Oral Daily ??? tacrolimus 1 mg Oral BID ??? calcium carbonate 1,000 mg Oral TID WC ??? hydrALAZINE 100 mg Oral TID ??? metoprolol succinate 200 mg Oral Nightly ??? losartan 100 mg Oral Daily ??? allopurinol 100 mg Oral Daily ??? dilTIAZem 120 mg Oral Daily ??? levothyroxine 100 mcg Oral QAM ??? pantoprazole 20 mg Oral BID ??? sodium chloride 0.9 % 5 mL Intravenous BID ??? amLODIPine 10 mg Oral Daily Continuous infusions: PRN: labetalol, sodium chloride 0.9 %, lidocaine, prochlorperazine, acetaminophen, senna-docusate Interval History: Had seizure last night Repeat head CT stable Neurology recommended increase in keppra dose Tolerated HD today Denies confusion, sob/cp, headaches, visual changes, abdominal pain, n/v, d/c, f/c, tremors. Physical Exam Vitals Range last 24 hrs Temperature Temp: [36.3 ??C (97.3 ??F)-36.9 ??C (98.4 ??F)] Heart Rate Heart Rate: [57-68] Blood Pressure BP: (137-167)/(89-101) Respiratory Rate Resp: [15-20] SpO2 SpO2: [92 %-96 %] Intake/Output Summary (Last 24 hours) at 08/04/2018 1634 Last data filed at 08/04/2018 1312 Gross per 24 hour Intake -- Output 3375 ml Net -3375 ml Patient Vitals for the past 168 hrs: Weight 08/03/18 1626 97.3 kg (214 lb 9.6 oz) 08/03/18 0322 96.7 kg (213 lb 1.6 oz) 08/02/18 0626 98.2 kg (216 lb 7.9 oz) 08/01/18 0533 103.5 kg (228 lb 1.6 oz) 07/30/18 0055 101.2 kg (223 lb 1.7 oz) Body mass index is 30.55 kg/m??. Physical Exam GEN: NAD, in bed, anasarca present HEENT: at/nc, anicteric CV: RRR, no m/r/g PULM: cta b/l ABD: soft, nt/nd, nabs EXT: 3+ pitting edema throughout NEURO: alert and oriented x 3 although some perseveration and confusion on details of care, CN 2-12wnl, strength 5/5 throughout, sensation intact to lighttouch throughout. SKIN: diffuse erythematous papules on back and chest Studies reviewed in eDH. Remarkable for the following: LABS: Last 3 wbc, hgb, hct plt Recent Labs 08/03/18 19007/29/18 2136 07/19/18 0941 WBC 4.7 3.8* 4.2 HGB 9.2* 9.2* 8.8* HCT 28.6* 28.9* 27.3* PLATELET 149 105* 145 Last 3 Lytes Recent Labs 08/04/18 0434 08/03/18 1909 08/03/18 0402 NA 138 137 139 K 4.1 4.7 4.0 CL 101 99 102 CO2 23 22 24 BUN 35* 33* 29* CREATININE 5.61* 5.35* 4.70* Last 3 LFTs Recent Labs 07/19/18 0941 06/07/18 1042 05/25/18 0830 AST 18 19 17 ALT 11 13 10 ALKPHOS 101 100 91 BILITOT 0.3 0.4 0.2 Assessment / Plan: 57 y.o. 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 Also with recent SDH followed by NS noted to have expanded some on repeat image done 08/01/18 but stable since. Course complicated by seizure on 08/03/18. ?? # Acute on chronic renal injury with IgA Nephropathy - start of HD 07/30/18 Possibly recurrence of primary disease, medication toxicity, graft failure. Presents with apparent volume overload (anasarca, Chronic non-cardiac pulmonary edema due to fluid overload) and uremia. Improving fluid and uremia and BP with HD. - Cont HD per renal recommendations - BP control - Hold calcitriol and sodium bicarb per nephro - Calcium carb for phos bind - F/u additional nephro recs - Will d/c cellcept and change tacrolimus to 1 mg bid # SDH: subacute. Asymptomatic - Repeat CT head stable - q4 hr neuro checks - NS consult appreciated - Avoid antiplts/anticoags # Seizure: Has history of such. Possible precipitant would be his head injury and recent uremia. - Con Keppra at 500 mg bid ?? # HTN: Still a problem but asymptomatic. - Increased amlodipine to 10 mg qd on admission - cont prn labetalol - restarted home losartan 07/31 - Continue hydralazine 100 mg TID, diltiazem SR 120 mg qd - Will cont metoprolol 200 mg nightly - D/C lasix now that he is starting HD ?? # Hypothyroidism - Home levothyroxine 100 mcg qAM IV access: PIV Tubes/Drains:none DVT PPX: SCD Anticipated Disposition: 1-2 days Team Pager( Coverage 01/02): #[phone] PCP: Carroll Fuentes DO [phone] Attestation: IPI Certification I certify that I am a D-H credentialed attending provider with admitting privileges and that the patient meets or has met medical necessity to require an inpatient IPI level of care meeting a minimumof two midnights or is on the CMS inpatient only procedure list (status C) due to: acute kidney injury necessitating close monitoring of fluid balance such as intravenous fluids and/or titration of medication to achieve optimal effect and minimize the chance of immediate or severe side effects SABRINA FLYNN III, MD 08/04/2018 * Walt Knox MSW - 08/04/2018 3:39 PM EST Continuing to discuss pt's status and situation during multidisciplinary discharge planning rounds.Team reports pt may be ready as early as tomorrow for d/c. [facility] Spoke with pt's brother/DPOA-HC, Lucas, by TC. Discussed that [facility]. Noted expectation that pt's current continued care needs,and PT/OT recommendations, present that pt best served by SNF LOC. I have [facility] [address] [address] staff MELY today to discuss admission and payment issues and confirm plan (and also advise us) for target for SNF d/c back to [facility] Following for HAND SPINNER and care management support through disposition. * Tammie Yeboah - 08/04/2018 2:16 PM EST Office of Care Management/Cardiology Nurse Name: Christy Ambrose Presenting Issue: Patient referral for outpatient dialysis placement. Patient has been approved for outpatient dialysis at the [facility] HD unit. The patient can start treatments onWednesday at 1100 am, 1040 arrival for paperwork. The patient will have a schedule of Mon/Wed/Fri at 1100. Transportation to outpatient dialysis will be arranged by family. Plan: This office will be available to the patient, Sound Recordist-RN and Patent Chemist as needed. Dialysis Unit Address: [address] [place] [address] Tammie Yeboah Cardiology Nurse * Mayra Huggins RN - 08/04/2018 12:09 PM EST Dialysis Arrival: Christy Ambrose arrived to dialysis @ 0755 from room 138A. Patient accompanied by SAVANNA Carcamo for transport. Full neuro assessment completed. Patient oriented to self and time. Swelling noted to R eye. Patient experienced R sided weakness post-seizure last night per report. No deficits noted. Dialysis Catheter accessed by Alicja Cortes RN without issue or concern. Transfer to: 138A Dialysis Treatment length: 4 hours Dialysis Fluid Removed: 3 L Report called to SAVANNA Carcamo. Dialysis catheter deaccessed by Alicja Wright RN without issue or concern. Patient denied any s/s during treatment. Vitals while in HD (also see flow sheet): Vitals: 08/04/18 0147 08/04/18 0447 08/04/18 0622 08/04/18 0759 BP: 143/89 (!) 144/91 (!) 167/92 BP Location (NBP): Right arm Right arm Right arm Patient Position: Lying Lying Pulse: 60 59 Resp: Temp: 36.7 ??C (98.1 ??F) 36.4 ??C (97.5 ??F) 36.7 ??C (98.1 ??F) TempSrc: Oral Oral Oral SpO2: 93% 93% 92% 95% Weight: Height: * Radha Hughes - 08/04/2018 10:27 AM EST HYPERTENSION/ NEPHROLOGY PROGRESS NOTE PATIENT: Christy Ambrose : 1960 REASON FOR CONSULTATION: Volume overload and uncontrolled HTN failed transplant for DINING ROOM COORDINATOR ID: 57 y/o with PMH of ESRD secondary to IgA nephropathy s/p donor renal transplant in 2002 (complicated by delayed graft function, recurrent IgA nephropathy and Prograf toxicity) on immunosuppression therapy (tacrolimus and??mycophenolate), 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 Subjective; Had seizure episode last evening and repeat CT stable.Seen on HD and tolerated procedure well.Denies any CP/SOB/plapitations/hedache/dizziness PHYSICAL EXAM: Intake/Output Summary (Last 24 hours) at 08/04/20181926 Last data filed at 08/04/2018 1312 Gross per 24 hour Intake -- Output 3375 ml Net -3375 ml Last value Range last 24 hrs Temperature Temp: 36.8 ??C (98.2 ??F) Temp: [36.4 ??C (97.5 ??F)-36.9 ??C (98.4 ??F)] Heart Rate Heart Rate: 59 Heart Rate: [59-68] Blood Pressure BP: 142/86 BP: (142-167)/(86-100) Respiratory Rate Resp: 20 Resp: [16-20] SpO2 SpO2: 93 % SpO2: [92 %-96 %] Appearance - Alert,NAD Skin - No exanthem. HEENT - Sclera white. Mucous membranes moist. Chest: Bilateral good air entry,no wheezing/creps/crackles. Heart - S1 and S2 clear w/o murmur, gallop, or rub. JVP not elevated. Abd - Soft. + BS. No bruit. Non tender. ,significant pitting sacral edema. Ext - Cameron UE/LE edema improving Neuro -able ot move all extremities and has good stregnth cameron UE/LE STUDIES: Labs: CBC: Recent Labs 08/03/18190807/29/18213507/19/18 0941 WBC 4.7 3.8* 4.2 HGB 9.2* 9.2* 8.8* PLATELET 149 105* 145 Chemistry: Recent Labs 08/04/18 0434 08/03/18190808/03/18 0402 NA 138 137 139 K 4.1 4.7 4.0 CL 101 99 102 CO2 BUN 35* 33* 29* CREATININE 5.61* 5.35* 4.70* GLUCOSE 91 131 92 Recent Labs 08/04/18 0434 08/03/18190808/03/18 0402 08/02/18 0448 08/01/18 0435 07/29/186 07/19/18 0941 06/07/18 1042 CALCIUM 7.6* 8.0* 7.7* 7.2* 7.3* < > 8.1* 7.7* 7.7* 7.9* 7.9* MAGNESIUM -- -- -- -- -- -- 1.02 0.89 0.83 PHOS -- -- 3.9 5.3* 6.7* -- 7.5* 6.7* 5.3* < > = values in this interval not displayed. LFT's: Recent Labs 07/19/18 0941 06/07/18 1042 05/25/18 0830 BILITOT 0.3 0.4 0.2 ALBUMIN 3.5 3.3 3.5 ALKPHOS 101 100 91 ALT 11 13 10 AST 18 19 17 IMPRESSION/ RECOMMENDATIONS: Christy Ambrose is a 57 y/o with S/p failed DDTxp -2002 with recurrent IgA nephropathy,DGF and prograf toxicity also had left kenaitze kidney nephrectomy due to papillary ca in 2017 presented with uncontrolled blood pressure and anasarca,failed transplant started on iHD # ESRD due to failed Transplant: -ESRD mostly due to acute on chronic rejection and graft failure,Transplant glomerulopathy -Access-R IJ TDC placed 07/30/2018-functioning good -Started on HD 07/30 -HD today for 4Hrs,3K bath,UF of 3 Kgs -Next HD on wednesday -Need to involve care transition coordinator for dialysis placement at [facility]. - Strict Is and Os,daily weights - Avoid nephrotoxins ,NSAID's and renally dose medications -D/C Cellcept.Continue tacrolimus at 1mg PO BID and levels does not yvette to be checked as per (Transplant) # Bone and Mineral Disease: Calcium levels are low and Phos levels improved.Continue tums 2 tabs TID with meals.Check PTH levels # Hypertension : BP improving .On losartan 100mg,metoprolol XL 200 mg ,Diltizem 120,Hydralazine 100mg PO TID,Amlodipine 10 mg,labetolol prn.Consider stopping diltiazem and changing metoprolol to coreg for better BP control. We will continue to follow patient with you Seen and Discussed w/ Dr.Graber Radha Hughes Nephrology Fellow [id number] Associated attestation - Gaby Mesa MD - 08/04/2018 7:52 PM EST Nephrology Attending Physician Procedure note: Inpatient Hemodialysis ESRD Christy Ginna Ambrose was seen and examined on hemodialysis and the data and chart were reviewed. Patient had seizure earlier this morning. Now he is alert, comfortable. Denies pain, dyspnea Hemodynamically stable and tolerating the procedure with ultrafiltration. Dialysis access is functioning well. Anemia management and bone metabolism reviewed. ?? Consider ordering blood draws only on dialysis days, to be drawn at dialysis to avoid needle sticks. ?? Strongly recommend avoid PICC in patients with stage 4/5 CKD or on dialysis to avoid damage to proximal veins crucial for future dialysis access. This is an evidence based recommendations supported by multiple national and international guidelines. Alternative outpatient IV access can be safely provided by tunneled IJ catheter or port placed by interventional radiology(order internal jugular TL C). ?? If opiates required, morphine, codeine, and oxycodone, accumulate and have toxic metabolites in dialysis pateints. Fentanyl, methadone, dilaudid, are preferable. Tramadol dose should be reduced by50% We will continue intermittent dialysis and dialysis-related care. Thank you for involving us in thecare of this patient * Patty Marrero, PT - 08/04/2018 9:19 AM EST Physical Therapy Contact Note Consult received, thank you, and pt history reviewed in eDH. Unable to complete initial physical therapy assessment at this time. Pt currently at HD. Will continue to follow and will re-attempt when appropriate. Please page this telegraphic typewriter repairer if you have any questions, thank you. Patty Marrero, PT Pager #[phone] Physical Therapy Inpatient Rehabilitation * Dmitriy Hoffman APRN - 08/04/2018 7:28 AM EST NEUROSURGERY PROGRESS NOTE ID: HD# 6 57 year old male found to have LEFT saSDH on routine followup CT scan following RIGHT frontal tSAH 06/02/19. INTERVAL HX/ROS: - Tonic clonic seizure yesterday evening - Additional dose of 1 gram of Keppra given - Repeat CT Head stable MEDICATIONS: Scheduled Meds: ??? calcium carbonate 1,000 mg Oral TID WC ??? hydrALAZINE 100 mg Oral TID ??? metoprolol succinate 200 mg Oral Nightly ??? losartan 100 mg Oral Daily ??? allopurinol 100 mg Oral Daily ??? dilTIAZem 120 mg Oral Daily ??? levothyroxine 100 mcg Oral QAM ??? pantoprazole 20 mg Oral BID ??? sodium chloride 0.9 % 5 mL Intravenous BID ??? tacrolimus 1-1.5 mg Oral BID ??? levETIRAcetam 500 mg Oral Daily And ??? levETIRAcetam 250 mg Oral Nightly ??? mycophenolate 500 mg Oral BID ??? amLODIPine 10 mg Oral Daily Continuous Infusions: PRN Meds: epoetin kerry, heparin (porcine), labetalol, sodium chloride 0.9 %, lidocaine, prochlorperazine, acetaminophen, senna-docusate EXAM: Vitals: Patient Vitals for the past 24 hrs: Temp Pulse Resp BP SpO2 O2 Device 08/03/18 0304 -- -- -- -- -- RA 08/03/18 0518 36.9 ??C (98.4 ??F) 58 22 (!) 148/96 91 % RA 08/03/18 0820 36.9 ??C (98.4 ??F) 56 16 (!) 159/102 93 % RA 08/03/18 1100 36.3 ??C (97.3 ??F) 57 14 (!) 142/92 93 % RA 08/03/18 1407 -- -- -- (!) 142/95 -- -- 08/03/18 1750 36.3 ??C (97.3 ??F) 57 18 (!) 137/97 94 % RA 08/03/181819 -- 63 17 (!) 150/93 96 % RA 08/03/181823 -- -- 15 (!) 167/101 95 % RA 08/03/181824 -- -- 17 (!) 159/96 -- -- 08/03/18 2043 36.6 ??C (97.9 ??F) 64 16 (!) 150/98 92 % RA BMI: Weight: 97.3 kg (214 lb 9.6 oz) (08/03/18 1626) BMI (Calculated): 32.47 BMI Classification: Obese I/O: I/O last 3 completed shifts: In: 120 [P.O.:120] Out: 1999 [Other:1999] Awake, A&Ox3 PERRL EOMI Speech fluent and appropriate No facial asymmetry, tongue midline Motor: RUE 5/5 LUE 4+/5 [baseline] Bilateral lower extremities 5/5 No pronator drift LABS: Recent Labs 08/03/18 190 WBC 4.7 HGB 9.2* PLATELET 149 Recent Labs 08/03/18 1909 08/03/18 0402 08/02/18 0448 NA 137 139 142 K 4.7 4.0 4.8 CL 99 102 106 CO2 22 24 22 BUN 33* 29* 56* CREATININE 5.35* 4.70* 6.95* Recent Labs 08/03/181908 PT 10.7 INR 0.9 IMAGING: CT Head wo Contrast 08/03/18: COMPARISON: Head CT 08/03/2017 at 0313 hours. Brain MRI 04/07/2018 ?? FINDINGS: Ventricles and basal cisterns are unchanged in size and are patent. Unchanged size of the mixed attenuation left subdural hematoma along the left cerebral convexity (coronal series 5 image 52). This collection measures 11 mm in maximal thickness with unchanged mass effect upon the superior left frontal and parietal lobes. No midline shift. ?? No new sites of acute intracranial hemorrhage. Flores matter white matter differentiation is well preserved, no evidence of acute cortical infarction. Unchanged low-attenuation lesions in the periventricular white matter of both cerebral hemispheres, a nonspecific finding, most commonly seen in the context small vessel ischemic changes. Unchanged low-attenuation lesion in the anterior horn of the left temporal lobe consistent with encephalomalacia. Unchanged punctate calcifications along the course of the right A1 branch of the anterior cerebral artery. The orbits are normal. The paranasal sinuses and mastoid air cells are clear. Asymmetric pneumatization of the left petrous apex, a normal anatomic variant. No calvarial fracture or suspicious osseous lesions. No extra calvarial hematoma. ?? IMPRESSION 1. Unchanged size of the mixed attenuation left subdural hematoma. 2. Unchanged local mass effect. 3. No new areas of acute intracranial hemorrhage. A/P: 57 year old male found to have LEFT saSDH on routine followup CT scan following RIGHT frontal tSAH 06/02/19. Tonic clonic seizure lasting approximately 45 seconds 08/03/18 evening, spontaneously resolved. Patient remained post-ictal for approximately 1 hour following seizure. - Neuro checks Q4H - SBP <160 - Hold anticoagulation/antiplatelets. - Keppra for seizure ppx - Neurology consulted for evaluation after seizure, pending recs - Further management per primary team. Addendum 08/04/17 7:28AM: - Repeat Head CT and neurological exam stable - Definitive AED recommendations per neurology, patient increased to 500mg Keppra BID overnight. - Recommend patient have additional Head CT in one week, if stable he can be restarted on any heparin required for HD. This Head CT can be obtained as inpatient (cannot be ordered for inpatient a week in advance) or it can be obtained as an outpatient if the patient is no longer admitted. Otherwisehold anticoagulation/antiplatelets. - The patient should follow-up in the Neurosurgery Clinic in [address]. This Head CT and follow-up will be arranged by Neurosurgery (may not show in patient's chart at discharge, howeverwe will call the patient). - Instructions for the patient at discharge have been placed in the multi- disciplinary section. - No need for neurosurgical intervention at this time. Please page Neurosurgery at [phone] if there are any focal neurologic changes in the patient's exam or with any questions regarding follow-up. Active Hospital Problems Diagnosis ??? Acute renal failure ??? SDH (subdural hematoma) ??? Hypertension Resolved Hospital Problems Diagnosis Date Resolved ??? Increased anion gap metabolic acidosis 08/03/2018 ??? Hypernatremia 08/03/2018 Active Non-Hospital Problems Diagnosis ??? Kidney transplant failure ??? CKD (chronic kidney disease) stage 5, GFR less than 15 ml/min ??? Hypertension secondary to other renal disorders ??? Renal osteodystrophy ??? RTA (renal tubular acidosis) ??? Anemia of chronic renal failure ??? Subarachnoid hemorrhage ??? Surgery follow-up ??? Primary papillary carcinoma of left kidney ??? Gastrointestinal hemorrhage ??? Bradycardia ??? Left renal mass ??? Weight loss ??? CKD (chronic kidney disease) stage 4, GFR 15-29 ml/min ??? 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 H/O [...] skin) ??? IgA nephropathy ??? Gout ??? Left leg DVT ??? Epilepsy Flori Alvarez APRN 08/04/2018 * Flori Alvarez APRN - 08/03/2018 7:00 PM EST Paged by nursing staff at 1850 stating patient had a tonic clonic seizure while sitting in the chair in his room at approximately 1815 this evening. They are reporting he is currently confused and not following commands. They are awaiting Neurology evaluation. Exam: Awake, A&Ox3 PERRL EOMI Speech fluent and appropriate No facial asymmetry, tongue midline Motor: RUE 5/5 LUE 4+/5 Bilateral lower extremities 5/5 * Sabrina Flynn III, MD - 08/03/2018 4:49 PM EST Hospital Medicine Attending Daily Progress Note Admit Date: 07/29/2018 Hospital Day 5 days Active Hospital Problems Diagnosis ??? Acute renal failure ??? SDH (subdural hematoma) ??? Hypertension Resolved Hospital Problems Diagnosis Date Resolved ??? Increased anion gap metabolic acidosis 08/03/2018 ??? Hypernatremia 08/03/2018 PMH Active Non-Hospital Problems Diagnosis ??? Kidney transplant failure ??? CKD (chronic kidney disease) stage 5, GFR less than 15 ml/min ??? Hypertension secondary to other renal disorders ??? Renal osteodystrophy ??? RTA (renal tubular acidosis) ??? Anemia of chronic renal failure ??? Subarachnoid hemorrhage ??? Surgery follow-up ??? Primary papillary carcinoma of left kidney ??? Gastrointestinal hemorrhage ??? Bradycardia ??? Left renal mass ??? Weight loss ??? CKD (chronic kidney disease) stage 4, GFR 15-29 ml/min ??? 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 H/O [...] skin) ??? IgA nephropathy ??? Gout ??? Left leg DVT ??? Epilepsy Inpatient Medications: Scheduled ??? calcium carbonate 1,000 mg Oral TID WC ??? hydrALAZINE 100 mg Oral TID ??? metoprolol succinate 200 mg Oral Nightly ??? losartan 100 mg Oral Daily ??? allopurinol 100 mg Oral Daily ??? dilTIAZem 120 mg Oral Daily ??? levothyroxine 100 mcg Oral QAM ??? pantoprazole 20 mg Oral BID ??? sodium chloride 0.9 % 5 mL Intravenous BID ??? tacrolimus 1-1.5 mg Oral BID ??? levETIRAcetam 500 mg Oral Daily And ??? levETIRAcetam 250 mg Oral Nightly ??? mycophenolate 500 mg Oral BID ??? amLODIPine 10 mg Oral Daily Continuous infusions: PRN: heparin (porcine), labetalol, sodium chloride 0.9 %, lidocaine, prochlorperazine, acetaminophen, senna-docusate Interval History: Stable overnight. Feeling well this AM without complaints. CT head repeat this AM with stable SDH. Pt denies MÉNDEZ, visual changes, new weakness. Denies confusion, sob/cp, abdominal pain, n/v, d/c, f/c, tremors. Physical Exam Vitals Range last 24 hrs Temperature Temp: [36.3 ??C (97.3 ??F)-36.9 ??C (98.4 ??F)] Heart Rate Heart Rate: [55-74] Blood Pressure BP: (142-161)/(74-102) Respiratory Rate Resp: [14-22] SpO2 SpO2: [91 %-94 %] Intake/Output Summary (Last 24 hours) at 08/03/2018 1650 Last data filed at 08/03/2018 1258 Gross per 24 hour Intake 120 ml Output -- Net 120 ml Patient Vitals for the past 168 hrs: Weight 08/03/18 1626 97.3 kg (214 lb 9.6 oz) 08/03/18 0322 96.7 kg (213 lb 1.6 oz) 08/02/18 0626 98.2 kg (216 lb 7.9 oz) 08/01/18 0533 103.5 kg (228 lb 1.6 oz) 07/30/18 0055 101.2 kg (223 lb 1.7 oz) Body mass index is 30.55 kg/m??. Physical Exam GEN: NAD, in bed, anasarca present HEENT: at/nc, anicteric CV: RRR, no m/r/g PULM: cta b/l ABD: soft, nt/nd, nabs EXT: 3+ pitting edema throughout NEURO: alert and oriented x 3 although some perseveration, CN 2-12 wnl, strength 5/5 throughout, sensation intact to lighttouch throughout. SKIN: diffuse erythematous papules on back and chest Studies reviewed in eDH. Remarkable for the following: LABS: Last 3 wbc, hgb, hct plt Recent Labs 07/29/18 2136 07/19/18 0941 06/07/18 1042 WBC 3.8* 4.2 4.2 HGB 9.2* 8.8* 8.6* HCT 28.9* 27.3* 25.3* PLATELET 105* 145 110* Last 3 Lytes Recent Labs 08/03/18 0402 08/02/18 0448 08/01/18 0435 NA 139 142 142 K 4.0 4.8 4.4 CL 102 106 106 CO2 19* BUN 29* 56* 80* CREATININE 4.70* 6.95* 9.31* Last 3 LFTs Recent Labs 07/19/18 0941 06/07/18 1042 05/25/18 0830 AST 18 19 17 ALT 11 13 10 ALKPHOS 101 100 91 BILITOT 0.3 0.4 0.2 Assessment / Plan: 57 y.o. 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 Also with recent SDH followed by NS noted to have expanded some on repeat image done 08/01/18. ?? # Acute on chronic renal injury with IgA Nephropathy - start of HD 07/30/18 Possibly recurrence of primary disease, medication toxicity, graft failure. Presents with apparent volume overload (anasarca, pulmonary edema) and uremia. Improving fluid and uremia and BP with HD. - Cont HD per renal recommendations - BP control - Hold calcitriol and sodium bicarb per nephro - Calcium carb for phos bind - F/u additional nephro recs - D/w Dr Rivera, continuing immune suppression for now # SDH: subacute. Asymptomatic - Repeat CT head stable - q4 hr neuro checks - NS consult appreciated - Avoid antiplts/anticoags ?? # Hypernatremia: Resolved Possibly taking excess sodium bicarb after Jul 19 when dose was supposed to drop; could not find [facility]. Seems unusual for this to be just from free water deficit (~3.6L) since he reports normal and typical intake. - Encourage PO water intake, trend - Holding sodium bicarb tabs ?? # HTN: Still a problem but asymptomatic. - Increased amlodipine to 10 mg qd on admission - cont prn labetalol - restarted home losartan 07/31 - Continue hydralazine 100 mg TID, diltiazem SR 120 mg qd - Will cont metoprolol 200 mg nightly - D/C lasix now that he is starting HD ?? # Epilepsy/TBI: Stable. - Home Keppra 500 mg ?? # Hypothyroidism - Home levothyroxine 100 mcg qAM IV access: PIV Tubes/Drains:none DVT PPX: SCD Anticipated Disposition: 1-2 days Team Pager( Coverage 01/02): #[phone] PCP: Carroll Fuentes DO [phone] Attestation: IPI Certification I certify that I am a D-H credentialed attending provider with admitting privileges and that the patient meets or has met medical necessity to require an inpatient IPI level of care meeting a minimumof two midnights or is on the CMS inpatient only procedure list (status C) due to: acute kidney injury necessitating close monitoring of fluid balance such as intravenous fluids and/or titration of medication to achieve optimal effect and minimize the chance of immediate or severe side effects SABRINA FLYNN III, MD 08/03/2018 * Walt Knox MSW - 08/03/2018 10:00 AM EST Continuing to discuss pt's status and situation during multidisciplinary discharge planning rounds.Left follow-up VM request, and spoke with RN to pass along message, for call back to [facility], -Tab. Also still pending reply from Ginger-Director. 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 Subjective; No acute events overnight.Feeling better.No CP/SOB/palpitations/dizziness PHYSICAL EXAM: Intake/Output Summary (Last 24 hours) at 08/03/2018 1700 Last data filed at 08/03/2018 1258 Gross per 24 hour Intake 120 ml Output -- Net 120 ml Last value Range last 24 hrs Temperature Temp: 36.3 ??C (97.3 ??F) Temp: [36.3 ??C (97.3 ??F)-36.9 ??C (98.4 ??F)] Heart Rate Heart Rate: 57 Heart Rate: [55-74] Blood Pressure BP: (!) 142/95 BP: (142-161)/(74-102) Respiratory Rate Resp: 14 Resp: [14-22] SpO2 SpO2: 93 % SpO2: [91 %-94 %] Appearance - Alert,NAD Skin - No exanthem. HEENT - Sclera white. Mucous membranes moist. Chest: Bilateral good air entry,no wheezing/creps/crackles. Heart - S1 and S2 clear w/o murmur, gallop, or rub. JVP not elevated. Abd - Soft. + BS. No bruit. Non tender. ,significant pitting sacral edema. Ext - Cameron UE/LE edema improving Neuro -able ot move all extremities and has good stregnth cameron UE/LE STUDIES: Labs: CBC: Recent Labs 07/29/18213507/19/18 0941 06/07/18 1042 WBC 3.8* 4.2 4.2 HGB 9.2* 8.8* 8.6* PLATELET 105* 145 110* Chemistry: Recent Labs 08/03/18 0402 08/02/18 0448 08/01/18 0435 NA 139 142 142 K 4.0 4.8 4.4 CL 102 106 106 CO2 24 19* BUN 29* 56* 80* CREATININE 4.70* 6.95* 9.31* GLUCOSE 92 92 99 Recent Labs 08/03/18 0402 08/02/18 0448 08/01/18 0435 07/29/18213507/19/18 0941 06/07/18 1042 CALCIUM 7.7* 7.2* 7.3* < > 8.1* 7.7* 7.7* 7.9* 7.9* MAGNESIUM -- -- -- -- 1.02 0.89 0.83 PHOS 3.9 5.3* 6.7* -- 7.5* 6.7* 5.3* < > = values in this interval not displayed. LFT's: Recent Labs 07/19/18 0941 06/07/18 1042 05/25/18 0830 BILITOT 0.3 0.4 0.2 ALBUMIN 3.5 3.3 3.5 ALKPHOS 101 100 91 ALT 11 13 10 AST 18 19 17 IMPRESSION/ RECOMMENDATIONS: Christy Ambrose is a 57 y/o with S/p failed DDTxp -2002 with recurrent IgA nephropathy,DGF and prograf toxicity also had left kenaitze kidney nephrectomy due to papillary ca in 2017 presented with uncontrolled blood pressure and anasarca,failed transplant started on iHD # ESRD due to failed Transplant: -ESRD mostly due to acute on chronic rejection and graft failure,Transplant glomerulopathy -Access-R IJ TDC placed 07/30/2018-functioning good -Started on HD 07/30 And had 3 sessions -Next dialysis tomorrow 08/04/18().Need to involve care transition coordinator for dialysis placement at [facility]. -No electrolyte abnormalities,uremic symptoms,overt fluid overload,metabolic abnormalities not manageable medically needing dialysis today - Strict Is and Os,daily weights - Avoid nephrotoxins ,NSAID's and renally dose medications -Can stop Cellcept.Continue tacrolimus at 1mg PO BID and levels does not yvette to be checked as per as he is already on dialysis # Bone and Mineral Disease: Calcium levels are low and Phos levels improved.Continue tums 2 tabs TID with meals.Check PTH levels # Hypertension : BP improving with dialysis.On losartan 100mg,metoprolol XL 200 mg ,Diltizem 120,Hydralazine 100 mg PO TID,Amlodipine 10 mg,labetolol prn.Consider stopping diltiazem and changing metoprolol to coreg for better BP control. We will continue to follow patient with you Seen and Discussed w/ Dr.Graber Radha Hughes Nephrology Fellow [phone] Associated attestation - Gaby Mesa MD - 08/03/2018 7:48 PM EST Nephrology Attending Physician visit note DIagnosis: End stage renal disease secondary to failed transplant Christy Ambrose was seen and examined and discussed with the renal fellow Dr Hughes My findings including history, examination and review of data as in the note above. I agree with the recommendations detailed above. We will continue to follow. Thank you for involving us in the care of this patient * Joanna Jeffers RN - 08/03/2018 9:08 AM EST Chart reviewed, care reviewed with primary team and at interdisciplinary rounds. Christy continues to require acute hospital care while awaiting outpatient HD placement. Prior to admission pt was private pay resident at [facility]. Plan is to attempt to get pt placement at [facility], but would like to return to [facility] if this does not come through. Pt requests referral to: [place] [address] CM will continue to follow and assist with discharge planning and coordination of care as indicated. Ysabel Jeffers RN Case Manager [phone] Pager #[phone] * Dmitriy Hoffman APRN - 08/03/2018 8:31 AM EST NEUROSURGERY PROGRESS NOTE ID: HD# 5 57 year old male found to have LEFT saSDH on routine followup CT scan following RIGHT frontal tSAH 06/02/19. INTERVAL HX/ROS: - No acute events overnight - No headaches MEDICATIONS: Scheduled Meds: ??? calcium carbonate 1,000 mg Oral TID WC ??? hydrALAZINE 100 mg Oral TID ??? metoprolol succinate 200 mg Oral Nightly ??? losartan 100 mg Oral Daily ??? allopurinol 100 mg Oral Daily ??? dilTIAZem 120 mg Oral Daily ??? levothyroxine 100 mcg Oral QAM ??? pantoprazole 20 mg Oral BID ??? sodium chloride 0.9 % 5 mL Intravenous BID ??? tacrolimus 1-1.5 mg Oral BID ??? levETIRAcetam 500 mg Oral Daily And ??? levETIRAcetam 250 mg Oral Nightly ??? mycophenolate 500 mg Oral BID ??? amLODIPine 10 mg Oral Daily Continuous Infusions: PRN Meds: heparin (porcine), labetalol, sodium chloride 0.9 %, lidocaine, prochlorperazine, acetaminophen, senna-docusate EXAM: Vitals: Patient Vitals for the past 24 hrs: Temp Pulse Resp BP SpO2 O2 Device 08/02/18 0626 36.5 ??C (97.7 ??F) 59 20 (!) 154/95 90 % RA 08/02/18 0757 36.9 ??C (98.4 ??F) 60 18 (!) 149/92 95 % RA 08/02/18 0811 -- -- -- -- -- RA 08/02/18 0900 37 ??C (98.6 ??F) 61 16 (!) 144/102 94 % RA 08/02/18 0923 -- 58 -- (!) 136/96 -- -- 08/02/18 1000 -- 59 -- -- -- -- 08/02/18 1015 -- 60 16 (!) 153/93 93 % RA 08/02/18 1100 -- 57 16 (!) 144/94 96 % RA 08/02/18 1145 -- 58 16 132/75 94 % RA 08/02/18 1200 -- 61 16 146/80 96 % RA 08/02/18 1217 -- 57 16 137/74 95 % RA 08/02/18 1234 -- 61 -- 129/80 94 % RA 08/02/18 1241 -- 60 -- 144/84 95 % RA 08/02/18 1254 36.8 ??C (98.3 ??F) 62 15 (!) 132/95 93 % RA 08/02/18 1426 -- -- -- 135/83 -- -- 08/02/18 1754 36.7 ??C (98.1 ??F) 55 17 (!) 161/95 92 % RA 08/02/18 2047 36.3 ??C (97.4 ??F) 74 18 151/74 92 % RA 08/02/18 2236 36.9 ??C (98.4 ??F) -- 18 151/89 94 % RA BMI: Weight: 98.2 kg (216 lb 7.9 oz) (08/02/18 06) BMI (Calculated): 32.47 BMI Classification: Obese I/O: I/O last 3 completed shifts: In: 1070 [P.O.:1070] Out: 4500 [Other:4500] Awake, A&Ox3 PERRL EOMI Speech fluent and appropriate No facial asymmetry, tongue midline Motor: RUE 5/5 LUE 4+/5 [baseline following injury] Bilateral lower extremities 5/5 LEFT forearm with large old skin graft LABS: No results for input(s): WBC, HGB, PLATELET in the last 72 hours. Recent Labs 08/02/18 0448 08/01/18 0435 07/31/18 0813 NA 142 142 147* K 4.8 4.4 4.9 CL 106 106 107 CO2 22 19* 17* BUN 56* 80* 76* CREATININE 6.95* 9.31* 8.91* No results for input(s): PT, INR in the last 72 hours. IMAGING: Repeat CT Head wo Contrast pending for this morning A/P: 57 year old male found to have LEFT saSDH on routine follow-up CT scan following RIGHT frontaltSAH 06/02/19. Neurologically stable. - Neuro checks Q4H - We will followup on CT Head this morning - SBP <160 - Hold anticoagulation/antiplatelets - Keppra for seizure ppx - Further management per primary team Addendum 08/03/18 8:31AM: - Would recommend against heparin during hemodialysis, if an alternative is available PLEASE PAGE [phone] WITH QUESTIONS Active Hospital Problems Diagnosis ??? Increased anion gap metabolic acidosis ??? Hypernatremia ??? Acute renal failure ??? SDH (subdural hematoma) ??? Hypertension Resolved Hospital Problems No resolved problems to display. Active Non-Hospital Problems Diagnosis ??? Kidney transplant failure ??? CKD (chronic kidney disease) stage 5, GFR less than 15 ml/min ??? Hypertension secondary to other renal disorders ??? Renal osteodystrophy ??? RTA (renal tubular acidosis) ??? Anemia of chronic renal failure ??? Subarachnoid hemorrhage ??? Surgery follow-up ??? Primary papillary carcinoma of left kidney ??? Gastrointestinal hemorrhage ??? Bradycardia ??? Left renal mass ??? Weight loss ??? CKD (chronic kidney disease) stage 4, GFR 15-29 ml/min ??? 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 H/O [...] skin) ??? IgA nephropathy ??? Gout ??? Left leg DVT ??? Epilepsy Flori Alvarez APRN 08/03/2018 * Sabrina Flynn III, MD - 08/02/2018 7:45 PM EST Hospital Medicine Attending Daily Progress Note Admit Date: 07/29/2018 Hospital Day 4 days Active Hospital Problems Diagnosis ??? Increased anion gap metabolic acidosis ??? Hypernatremia ??? Acute renal failure ??? SDH (subdural hematoma) ??? Hypertension Resolved Hospital Problems No resolved problems to display. PMH Active Non-Hospital Problems Diagnosis ??? Kidney transplant failure ??? CKD (chronic kidney disease) stage 5, GFR less than 15 ml/min ??? Hypertension secondary to other renal disorders ??? Renal osteodystrophy ??? RTA (renal tubular acidosis) ??? Anemia of chronic renal failure ??? Subarachnoid hemorrhage ??? Surgery follow-up ??? Primary papillary carcinoma of left kidney ??? Gastrointestinal hemorrhage ??? Bradycardia ??? Left renal mass ??? Weight loss ??? CKD (chronic kidney disease) stage 4, GFR 15-29 ml/min ??? 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 [facility] current use of immunosuppressive drug ??? H/O [...] skin) ??? IgA nephropathy ??? Gout ??? Left leg DVT ??? Epilepsy Inpatient Medications: Scheduled ??? calcium carbonate 1,000 mg Oral TID WC ??? hydrALAZINE 100 mg Oral TID ??? metoprolol succinate 200 mg Oral Nightly ??? losartan 100 mg Oral Daily ??? allopurinol 100 mg Oral Daily ??? dilTIAZem 120 mg Oral Daily ??? levothyroxine 100 mcg Oral QAM ??? pantoprazole 20 mg Oral BID ??? sodium chloride 0.9 % 5 mL Intravenous BID ??? tacrolimus 1-1.5 mg Oral BID ??? levETIRAcetam 500 mg Oral Daily And ??? levETIRAcetam 250 mg Oral Nightly ??? mycophenolate 500 mg Oral BID ??? amLODIPine 10 mg Oral Daily Continuous infusions: PRN: heparin (porcine), labetalol, sodium chloride 0.9 %, lidocaine, prochlorperazine, acetaminophen, senna-docusate Interval History: Subdural noted on CT yesterday to have expanded. NS consulted. Pt denies MÉNDEZ, visual changes, new weakness. Feeling well again post HD session today Denies confusion, sob/cp, abdominal pain, n/v, d/c, f/c, tremors. Physical Exam Vitals Range last 24 hrs Temperature Temp: [36.5 ??C (97.7 ??F)-37 ??C (98.6 ??F)] Heart Rate Heart Rate: [55-62] Blood Pressure BP: (129-161)/(74-102) Respiratory Rate Resp: [15-20] SpO2 SpO2: [90 %-96 %] Intake/Output Summary (Last 24 hours) at 08/02/2018 194 Last data filed at 08/02/2018 1241 Gross per 24 hour Intake 360 ml Output 2000 ml Net -1640 ml Patient Vitals for the past 168 hrs: Weight 08/02/18 0626 98.2 kg (216 lb 7.9 oz) 08/01/18 0533 103.5 kg (228 lb 1.6 oz) 07/30/18 0055 101.2 kg (223 lb 1.7 oz) Body mass index is 30.82 kg/m??. Physical Exam GEN: NAD, in bed, anasarca present HEENT: at/nc, anicteric CV: RRR, no m/r/g PULM: cta b/l ABD: soft, nt/nd, nabs EXT: 3+ pitting edema throughout NEURO: alert and oriented x 3 although some perseveration, CN 2-12 wnl, strength 5/5 throughout, sensation intact to lighttouch throughout. SKIN: diffuse erythematous papules on back and chest Studies reviewed in eDH. Remarkable for the following: LABS: Last 3 wbc, hgb, hct plt Recent Labs 07/29/18 2136 07/19/18 0941 06/07/18 1042 WBC 3.8* 4.2 4.2 HGB 9.2* 8.8* 8.6* HCT 28.9* 27.3* 25.3* PLATELET 105* 145 110* Last 3 Lytes Recent Labs 08/02/18 0448 08/01/18 0435 07/31/18 0813 NA 142 142 147* K 4.8 4.4 4.9 CL 106 106 107 CO2 22 19* 17* BUN 56* 80* 76* CREATININE 6.95* 9.31* 8.91* Last 3 LFTs Recent Labs 07/19/18 0941 06/07/18 1042 05/25/18 0830 AST 18 19 17 ALT 11 13 10 ALKPHOS 101 100 91 BILITOT 0.3 0.4 0.2 Assessment / Plan: 57 y.o. 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 Also with recent SDH followed by NS noted to have expanded some on repeat image done 08/01/18. ?? # Acute on chronic renal injury with IgA Nephropathy - start of HD 07/30/18 Possibly recurrence of primary disease, medication toxicity, graft failure. Presents with apparent volume overload (anasarca, pulmonary edema) and uremia. Improving fluid and uremia and BP with HD. - Cont HD per renal recommendations - BP control - Hold calcitriol and sodium bicarb per nephro - Calcium carb for phos bind - F/u additional nephro recs - D/w Dr Rivera, continuing immune suppression for now # SDH: subacute. Asymptomatic - Repeat CT head in AM to assess for change - NS consult appreciated - Avoid antiplts/anticoags ?? # Hypernatremia: Improving Possibly taking excess sodium bicarb after Jul 19 when dose was supposed to drop[facility] Seems unusual for this to be just from free water deficit (~3.6L) since he reports normal and typical intake. - Encourage PO water intake, trend - Holding sodium bicarb tabs ?? # HTN: Still a problem but asymptomatic. - Increased amlodipine to 10 mg qd on admission - cont prn labetalol - restarted home losartan 07/31 - Continue hydralazine 100 mg TID, diltiazem SR 120 mg qd - Will cont metoprolol 200 mg nightly - D/C lasix now that he is starting HD ?? # Epilepsy/TBI: Stable. - Home Keppra 500 mg ?? # Hypothyroidism - Home levothyroxine 100 mcg qAM IV access: PIV Tubes/Drains:none DVT PPX: SCD Anticipated Disposition: 2-3 days Team Pager( Coverage 01/02): #[phone] PCP: Carroll Fuentes DO [phone] Attestation: IPI Certification I certify that I am a D-H credentialed attending provider with admitting privileges and that the patient meets or has met medical necessity to require an inpatient IPI level of care meeting a minimumof two midnights or is on the [facility] inpatient only procedure list (status C) due to: acute kidney injury necessitating close monitoring of fluid balance such as intravenous fluids and/or titration of medication to achieve optimal effect and minimize the chance of immediate or severe side effects SABRINA FLYNN III, MD 08/02/2018 * Joanna Jeffers RN - 08/02/2018 3:15 PM EST Chart reviewed, care reviewed with primary team and at interdisciplinary rounds. Christy continues to require acute hospital care for acute renal failure. Ongoing issues include new HD requirement, improving hypernatremia. Functional status prior to admission: Pt was resident at [facility] (private pay), independent. Family has been attempting to have pt placed at [facility] where is mother is resident. Dispo will depend on pt's needs and availability of placement at [facility]. Referral made to [facility] for HD spot. CM will continue to follow and assist with discharge planning and coordination of care as indicated. Ysabel Jeffers employment evaluator/case manager [phone] Pager #[phone] * Mallory Gonzales RN - 08/02/2018 12:24 PM EST Pt is returning to the floor after a 3.5 hour dialysis treatment with 2 L of fluid removed per HD RN; tolerated well. See doc flow for VS. Denies shortness of breath/nausea/chest pain/cramping. Report called to Emma CORRALES. 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 Subjective; Seen on HD.Tolerated the procedure well.Had net negative fluid balance of 1.4L yesterday.Saturating well on RA.Ct head done late yesterday showed increase in extra axial collection PHYSICAL EXAM: Intake/Output Summary (Last 24 hours) at 08/02/2018 1618 Last data filed at 08/02/2018 1241 Gross per 24 hour Intake 600 ml Output 2000 ml Net -1400 ml Last value Range last 24 hrs Temperature Temp: 36.8 ??C (98.3 ??F) Temp: [36.5 ??C (97.7 ??F)-37 ??C (98.6 ??F)] Heart Rate Heart Rate: 62 Heart Rate: [57-62] Blood Pressure BP: 135/83 BP: (129-154)/(74-102) Respiratory Rate Resp: 15 Resp: [15-20] SpO2 SpO2: 93 % SpO2: [90 %-96 %] Appearance - Alert,NAD Skin - No exanthem. HEENT - Sclera white. Mucous membranes moist. Chest: . Lungs have bilateral wheezes with crept's extending up to interscapular areas. Heart - S1 and S2 clear w/o murmur, gallop, or rub. JVP not elevated. Abd - Soft. + BS. No bruit. Non tender. ,significant pitting sacral edema. Ext - left arm with prior surgical berry of fistula and more swollen than right arm Warm which is slightly improving.No cyanosis.+2-3 bilateral dependent edema. Neuro -Able to follow commands and moving all extremities STUDIES: Labs: CBC: Recent Labs 07/29/18213507/19/1841 06/07/18 1042 WBC 3.8* 4.2 4.2 HGB 9.2* 8.8* 8.6* PLATELET 105* 145 110* Chemistry: Recent Labs 08/02/1844708/01/185 07/31/18 0813 NA 142 142 147* K 4.8 4.4 4.9 CL 106 106 107 CO2 22 19* 17* BUN 56* 80* 76* CREATININE 6.95* 9.31* 8.91* GLUCOSE 92 99 111 Recent Labs 08/02/1844708/01/1843407/31/18 0813 07/29/18213507/19/18 0941 06/07/18 1042 CALCIUM 7.2* 7.3* 8.0* 8.1* 7.7* 7.7* 7.9* 7.9* MAGNESIUM -- -- -- 1.02 0.89 0.83 PHOS 5.3* 6.7* -- 7.5* 6.7* 5.3* LFT's: Recent Labs 07/19/1841 06/07/18 1042 05/25/18 0830 BILITOT 0.3 0.4 0.2 ALBUMIN 3.5 3.3 3.5 ALKPHOS 101 100 91 ALT 11 13 10 AST 18 19 17 IMPRESSION/ RECOMMENDATIONS: Christy Ambrose is a 57 y/o with S/p failed DDTxp -2002 with recurrent IgA nephropathy,DGF and prograf toxicity also had left kenaitze kidney nephrectomy due to papillary ca in 2017 presented with uncontrolled blood pressure and anasarca,failed transplant started on HD # ESRD due to failed Transplant: -Recent worsening likely due to acute on chronic rejection vs prerenal with acute intravascularvolume depletion.Also has significant proteinuria due to chronic transplant nephropathy -Access-R IJ TDC placed 07/30/2018-functioning good -Started on HD 07/30 and today is 3rs session in a row with 3.5 Hrs,3K with UF of 2 Kgs -Next dialysis mostly on 08/04/18().Need to involve care transition coordinator for dialysis placement at [facility]. - Strict Is and Os,daily weights - Avoid nephrotoxins ,NSAID's and renally dose medications -Continue tacrolimus at current dose and levels are within range 3.2.Need to monitor levels periodically # Bone and Mineral Disease: Calcium levels are low and high phos levels.Increase tums 2 tabs TID.Improving phos levels # Hypertension : BP improving with dialysis.On losartan 100mg,metoprolol XL 200 mg form tonight,Diltizem 120,Hydralazine 100 mg PO TID,Amlodipine 10 mg,labetolol prn.Monitor and adjutst medications as needed. We will continue to follow patient with you Seen and Discussed w/ Dr.Graber Radha Hughes Nephrology Fellow [phone] Associated attestation - Gaby Mesa MD - 08/02/2018 7:57 PM EST Nephrology Attending Physician Procedure note: Inpatient Hemodialysis ACUTE KIDNEY INJURY / ESRD Christy Ambrose was seen and examined on hemodialysis and the data and chart were reviewed. Dialysis technique with no heparin because of new parenchymal brain hemorrhage at site of previous hemorrhage. Patient is alert, comfortable. Expressive dysphasia. Denies pain, dyspnea Hemodynamically stable and tolerating the procedure with ultrafiltration. Edema has improved Dialysis access is functioning well. Anemia management and bone metabolism reviewed. ?? Consider ordering blood draws only on dialysis days, to be drawn at dialysis to avoid needle sticks. ?? Strongly recommend avoid PICC in patients with stage 4/5 CKD or on dialysis to avoid damage to proximal veins crucial for future dialysis access. This is an evidence based recommendations supported by multiple national and international guidelines. Alternative outpatient IV access can be safely provided by tunneled IJ catheter or port placed by interventional radiology(order internal jugular TL C). ?? If opiates required, morphine, codeine, and oxycodone, accumulate and have toxic metabolites in dialysis pateints. Fentanyl, methadone, dilaudid, are preferable. Tramadol dose should be reduced by50% We will continue intermittent dialysis and dialysis-related care. Thank you for involving us in thecare of this patient * Joanna Jeffers RN - 08/02/2018 9:47 AM EST Pt will require new HD on discharge, requests spot at [facility]. 3rd inpatient HD session today 08/02. CXR and Hep B antigen completed. Ysabel Jeffers RN Case Manager [phone] Pager #[phone] * Walt Knox MSW - 08/02/2018 9:39 AM EST [facility] . Left VM and awaiting reply. * Mallory Gonzales RN - 08/02/2018 9:10 AM EST Pt arrived in dialysis at 0834. Report received from Emma CORRALES. * Sabrina Flynn III, MD - 08/01/2018 4:05 PM EST Hospital Medicine Attending Daily Progress Note Admit Date: 07/29/2018 Hospital Day 3 days Active Hospital Problems Diagnosis ??? Increased anion gap metabolic acidosis ??? Hypernatremia ??? Acute renal failure ??? Hypertension Resolved Hospital Problems No resolved problems to display. PMH Active Non-Hospital Problems Diagnosis ??? Kidney transplant failure ??? CKD (chronic [...] GFR 15-29 ml/min ??? 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 [facility] current use of immunosuppressive drug ??? H/O [...] skin) ??? IgA nephropathy ??? Gout ??? Left leg DVT ??? Epilepsy Inpatient Medications: Scheduled ??? losartan 100 mg Oral Daily ??? allopurinol 100 mg Oral Daily ??? dilTIAZem 120 mg Oral Daily ??? hydrALAZINE 125 mg Oral TID ??? levothyroxine 100 mcg Oral QAM ??? metoprolol tartrate 25 mg Oral TID ??? pantoprazole 20 mg Oral BID ??? sodium chloride 0.9 % 5 mL Intravenous BID ??? calcium carbonate 500 mg Oral TID WC ??? tacrolimus 1-1.5 mg Oral BID ??? levETIRAcetam 500 mg Oral Daily And ??? levETIRAcetam 250 mg Oral Nightly ??? mycophenolate 500 mg Oral BID ??? amLODIPine 10 mg Oral Daily Continuous infusions: PRN: labetalol, sodium chloride 0.9 %, lidocaine, prochlorperazine, acetaminophen, senna-docusate Interval History: HD session today - tolerated it well Feeling on top of the world today High BPs overnight and this AM again No headaches. Denies confusion, sob/cp, abdominal pain, n/v, d/c, f/c, tremors. Physical Exam Vitals Range last 24 hrs Temperature Temp: [36.5 ??C (97.7 ??F)-36.9 ??C (98.4 ??F)] Heart Rate Heart Rate: [64-96] Blood Pressure BP: (129-202)/(82-110) Respiratory Rate Resp: [16-22] SpO2 SpO2: [92 %-96 %] Intake/Output Summary (Last 24 hours) at 08/01/2018 1605 Last data filed at 08/01/2018 1528 Gross per 24 hour Intake 820 ml Output 2500 ml Net -1680 ml Patient Vitals for the past 168 hrs: Weight 08/01/18 0533 103.5 kg (228 lb 1.6 oz) 07/30/18 0055 101.2 kg (223 lb 1.7 oz) Body mass index is 32.47 kg/m??. Physical Exam GEN: NAD, in bed, anasarca present HEENT: at/nc, anicteric CV: RRR, no m/r/g PULM: cta b/l ABD: soft, nt/nd, nabs EXT: 3+ pitting edema throughout NEURO: alert and oriented x 3 although some perseveration, mild asterixis SKIN: diffuse erythematous papules on back and chest Studies reviewed in eDH. Remarkable for the following: LABS: Last 3 wbc, hgb, hct plt Recent Labs 07/29/18 21307/19/18 0941 06/07/18 1042 WBC 3.8* 4.2 4.2 HGB 9.2* 8.8* 8.6* HCT 28.9* 27.3* 25.3* PLATELET 105* 145 110* Last 3 Lytes Recent Labs 08/01/18 0435 07/31/18 0813 07/29/18 2136 NA 142 147* 150* K 4.4 4.9 4.9 CL 106 107 112* CO2 19* 17* 18* BUN 80* 76* 94* CREATININE 9.31* 8.91* 9.93* Last 3 LFTs Recent Labs 07/19/18 0941 06/07/18 1042 05/25/18 0830 AST 18 19 17 ALT 11 13 10 ALKPHOS 101 100 91 BILITOT 0.3 0.4 0.2 Assessment / Plan: 57 y.o. 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 ?? # Acute on chronic renal injury with IgA Nephropathy - start of HD 07/30/18 Possibly recurrence of primary disease, medication toxicity, graft failure. Presents with apparent volume overload (anasarca, pulmonary edema) and uremia. - Cont HD per renal recommendations - BP control - Hold calcitriol and sodium bicarb per nephro - Calcium carb for phos bind - F/u additional nephro recs - D/w Dr Rivera, continuing immune suppression for now ?? # Hypernatremia: Improving Possibly taking excess sodium bicarb after Jul 19 when dose was supposed to drop; could not find [employer] [facility]. Seems unusual for this to be just from free water deficit (~3.6L) since he reports normal and typical intake. - Encourage PO water intake, trend - Holding sodium bicarb tabs ?? # HTN: Still a problem but asymptomatic. - Increased amlodipine to 10 mg qd on admission - cont prn labetalol - restarted home losartan 07/31 - Continue home hydralazine 125 mg TID, diltiazem SR 120 mg qd - Will change metoprolol from 25 mg tid to longacting 200 mg nightly - D/C lasix now that he is starting HD ?? # Epilepsy/TBI - Home Keppra 500 mg ?? # Hypothyroidism - Home levothyroxine 100 mcg qAM IV access: PIV Tubes/Drains:none DVT PPX: heparin Anticipated Disposition: 2-3 days Team Pager( Coverage 01/02): #[phone] PCP: Carroll Fuentes DO [phone] Attestation: IPI Certification I certify that I am a D-H credentialed attending provider with admitting privileges and that the patient meets or has met medical necessity to require an inpatient IPI level of care meeting a minimumof two midnights or is on the [facility] inpatient only procedure list (status C) due to: acute kidney injury necessitating close monitoring of fluid balance such as intravenous fluids and/or titration of medication to achieve optimal effect and minimize the chance of immediate or severe side effects SABRINA FLYNN III, MD 08/01/2018 * Tana Briones, RD - 08/01/2018 3:16 PM EST Nutrition Initial Note Christy Ginna Ambrose is a 57 y.o. male Reason for intervention: Education Nutrition Recommendations: Continue Renal, 2 gm Na diet order. Diet education provided to patient: Renal shopping list and 2000 mg potassium diet. Monitor and encourage PO intake. Monitor weights. Patient Active Problem List Diagnosis Code ??? Epilepsy G40.909 ??? Gout M10.9 ??? Hypertension I10 ??? Left leg DVT I82.402 ??? IgA nephropathy N02.8 ??? BCC (basal cell carcinoma of skin) C44.91 ??? Acne rosacea L71.9 ??? Rosacea L71.9 ??? Anticoagulated on Coumadin Z51.81, Z79.01 ??? Atopic rhinitis J30.9 ??? Injury [...] ml/min N18.4 ??? 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 [...] N25.89 ??? Acute renal failure N17.9 ??? Hypernatremia E87.0 ??? Increased anion gap metabolic acidosis E87.2 Past Medical History: Diagnosis Date ??? BP (high blood pressure) ??? DVT (deep venous thrombosis) ??? Gout ??? Hypertension ??? Kidney problem ??? Pneumonia ??? TBI (traumatic brain injury) 1979 Active Orders Diet Renal diet 2 GM NA Frequency: Effective Now Number of Occurrences: Until Specified Admit Weight: 101.2 kg Estimated body mass index is 32.47 kg/m?? as calculated from the following: Height as of this encounter: 178.5 cm (5' 10.28). Weight as of this encounter: 103.5 kg (228 lb 1.6 oz). Dexter Body Weight (IBW): Dexter body weight: 73.6 kg (162 lb 5.4 oz) Adjusted ideal body weight: 85.6 kg (188 lb 10.3 oz) Estimated needs: Calories: 1800 Protein: 120 grams Today's medications: Tums 500 mg TID, protonix Lab Results Component Value Date NA 142 08/01/2018 K 4.4 08/01/2018 CL 106 08/01/2018 CO2 19 (L) 08/01/2018 BUN 80 (H) 08/01/2018 CREATININE 9.31 (H) 08/01/2018 GLUCOSE 99 08/01/2018 MAGNESIUM 1.02 07/29/2018 CALCIUM 7.3 (L) 08/01/2018 PHOS 6.7 (H) 08/01/2018 AST 18 07/19/2018 ALT 11 07/19/2018 ALKPHOS 101 07/19/2018 BILITOT 0.3 07/19/2018 BILIDIR 0.2 05/15/2017 TRIG 76 11/26/2016 Last Bowel Movement: 07/30/18(per nursing report) Assessment: Pt seen for renal diet order, admitted with acute renal failure, now receiving hemodialysis. Pt reports good appetite and PO intake. Pt reports that he is somewhat familiar with the renaldiet restrictions, but would like to review this information. Provided him with written material and reviewed this with him. Pt verbalized good understanding. JERICHO LORENZO Beeper #: [id number] * Alicia Garcia RN - 08/01/2018 12:13 PM EST Patient arrived to dialysis at 0755 in no acute distress, assessment as documented. Dialysis treatment initiated at 0840 by SAVANNA Marie; treatment delayed to machine cleansing. Treatment lasted 2hrs with 2.5L removed, no complications noted. HD dressing changed by SAVANNA Marie. Patient received prn labetalol at 0857 with good response. Report called to SAVANNA Garcia. Transport requested at 1213. BP 154/82 (BP Location (NBP): Right arm, Patient Position: Sitting) Pulse 69 Temp 36.9 ??C (98.4 ??F) (Oral) Resp 18 Ht 178.5 cm (5' 10.28) Wt 103.5 kg (228 lb 1.6 oz) SpO2 95% BMI 32.47 kg/m?? 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 Subjective; Seen on HD.Tolerating the procedure well.Had a net positive balance of 1.3L yesterday.No significant urine out put.Saturating well on RA.No acute events overnight PHYSICAL EXAM: Intake/Output Summary (Last 24 hours) at 08/01/2018 0902 Last data filed at 08/01/2018 0657 Gross per 24 hour Intake 1070 ml Output -- Net 1070 ml Last value Range last 24 hrs Temperature Temp: 36.9 ??C (98.4 ??F) Temp: [36.5 ??C (97.7 ??F)-36.9 ??C (98.4 ??F)] Heart Rate Heart Rate: 69 Heart Rate: [62-96] Blood Pressure BP: (!) 202/95 BP: (120-202)/(82-110) Respiratory Rate Resp: 18 Resp: [18-22] SpO2 SpO2: 93 % SpO2: [93 %-96 %] Appearance - Alert,NAD Skin - No exanthem. HEENT - Sclera white. Mucous membranes moist. Chest: . Lungs have bilateral wheezes with crept's extending up to interscapular areas. Heart - S1 and S2 clear w/o murmur, gallop, or rub. JVP not elevated. Abd - Soft. + BS. No bruit. Non tender. ,significant pitting sacral edema. Ext - left arm with prior surgical berry of fistula and more swollen than right arm Warm which is slightly improving.No cyanosis.+2-3 bilateral dependent edema. Neuro -No obvious focal deficits on exam STUDIES: Labs: CBC: Recent Labs 07/29/18 2136 07/19/18 0941 06/07/18 1042 WBC 3.8* 4.2 4.2 HGB 9.2* 8.8* 8.6* PLATELET 105* 145 110* Chemistry: Recent Labs 08/01/18 0435 07/31/18 0813 07/29/18 2136 NA 142 147* 150* K 4.4 4.9 4.9 CL 106 107 112* CO2 19* 17* 18* BUN 80* 76* 94* CREATININE 9.31* 8.91* 9.93* GLUCOSE 99 111 123 Recent Labs 08/01/18 0435 07/31/18 0813 07/29/18 2136 07/19/18 0941 06/07/18 1042 CALCIUM 7.3* 8.0* 8.1* 7.7* 7.7* 7.9* 7.9* MAGNESIUM -- -- 1.02 0.89 0.83 PHOS 6.7* -- 7.5* 6.7* 5.3* LFT's: Recent Labs 07/19/18 0941 06/07/18 1042 05/25/18 0830 BILITOT 0.3 0.4 0.2 ALBUMIN 3.5 3.3 3.5 ALKPHOS 101 100 91 ALT 11 13 10 AST 18 17 IMPRESSION/ RECOMMENDATIONS: Christy Ambrose is a 57 y/o with ESRD secondary to failed transplant needing DINING ROOM COORDINATOR # ESRD due to failed Transplant: - S/p failed DDTxp -2002 with recurrent IgA nephropathy,DGF and prograf toxicity also had left kenaitze kidney nephrectomy due to papillary ca in 2016 presented with uncontrolled blood pressure and anasarca.. Recent worsening likely due to acute on chronic rejection vs prerenal with acute intravascularvolume depletion.Also has significant proteinuria due to chronic transplant nephropathy -Access-R IJ TDC placed 07/30/2018-functioning good -Had Ist session of dialysis 07/30 and getting 2nd session today-3Hrs,3K with UF goal of 2.5Kgs -Next dialysis tomorrow for 3.5 Hrs,3K with UF goal of 2.5 Kgs - Strict Is and Os,daily weights - Avoid nephrotoxins like NSAID's and renally dose medications -Continue tacrolimus at current dose and levels are within range 3.2 # Bone and Mineral Disease: Calcium levels are low and high phos levels.Can increase tums 2 tabs TID. # Hypertension : BP improving with dialysis.On losartan 100mg,metoprolol XL dose incresed to 200 mgform tonight,Diltizem 120,Hydralazine 125 mg PO TID,labetolol prn.Recommend to decrease hydralazinedose as he has been high dose.Monitor and adjutst medications as needed We will continue to follow patient with you Seen and Discussed w/ Dr.Graber Radha Hughes Nephrology Fellow [id number] Associated attestation - Gaby Mesa MD - 08/01/2018 4:40 PM EST Nephrology Attending Physician Procedure note: Inpatient Hemodialysis ESRD Christy Ambrose was seen and examined on hemodialysis and the data and chart were reviewed. Second inititation treatment Patient is alert, comfortable. Denies pain, dyspnea Hemodynamically stable and tolerating the procedure with ultrafiltration. Dialysis access is functioning well. Anemia management and bone metabolism reviewed. ?? Consider ordering blood draws only on dialysis days, to be drawn at dialysis to avoid needle sticks. ?? Strongly recommend avoid PICC in patients with stage 4/5 CKD or on dialysis to avoid damage to proximal veins crucial for future dialysis access. This is an evidence based recommendations supported by multiple national and international guidelines. Alternative outpatient IV access can be safely provided by tunneled IJ catheter or port placed by interventional radiology(order internal jugular TL C). ?? If opiates required, morphine, codeine, and oxycodone, accumulate and have toxic metabolites in dialysis pateints. Fentanyl, methadone, dilaudid, are preferable. Tramadol dose should be reduced by50% We will continue intermittent dialysis and dialysis-related care. Thank you for involving us in thecare of this patient * Odalis Soria RN - 07/31/2018 3:59 PM EST 3:59 PM Pt arrived from [facility] at 1600, transferred to 1East bed 1 assist with walker. Assessment completed.Oriented pt to new room and call daniels, educated on bed alarm, and encouraged to ring when assistance is needed. Bed alarm on, call daniels within reach. Will continue to monitor. 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 Subjective; He tolerated 2 hours of dialysis yesterday. He feels better, denied shortness of breath, nausea and vomiting. He is hypertensive overnight . Urine output is 350 cc. PHYSICAL EXAM: Intake/Output Summary (Last 24 hours) at 07/31/2018 1419 Last data filed at 07/31/2018 1100 Gross per 24 hour Intake 1080 ml Output 2200 ml Net -1120 ml Last value Range last 24 hrs Temperature Temp: 36.6 ??C (97.9 ??F) Temp: [36.3 ??C (97.3 ??F)-36.6 ??C (97.9 ??F)] Heart Rate Heart Rate: 62 Heart Rate: [60-71] Blood Pressure BP: 120/82 BP: (120-199)/(80-114) Respiratory Rate Resp: 18 Resp: [12-18] SpO2 SpO2: 94 % SpO2: [88 %-96 %] Appearance - Alert, sitting in bed Skin - No exanthem. HEENT - Sclera white. Mucous membranes moist. Chest: . Lungs have bilateral wheezes with crept's extending up to interscapular areas. Heart - S1 and S2 clear w/o murmur, gallop, or rub. JVP not elevated. Abd - Soft. + BS. No bruit. Non tender. ,significant pitting sacral edema. Ext - left arm with prior surgical berry of fistula and was much swollen than right arm Warm. No cyanosis. +3 bilateral dependent edema. Neuro -Mild tremors. STUDIES: Labs: CBC: Recent Labs 07/29/18213507/19/18 0941 06/07/18 1042 WBC 3.8* 4.2 4.2 HGB 9.2* 8.8* 8.6* PLATELET 105* 145 110* Chemistry: Recent Labs 07/31/18 0813 07/29/1807/19/19 0941 NA 147* 150* 148* 148* K 4.9 4.9 5.0 5.0 CL 107 112* 112* 112* CO2 17* 18* 18* 18* BUN 76* 94* 72* 72* CREATININE 8.91* 9.93* 7.40* 7.40* GLUCOSE 111 123 105 105 Recent Labs 07/31/18 0813 07/29/18 2136 07/19/18 0941 06/07/18 1042 CALCIUM 8.0* 8.1* 7.7* 7.7* 7.9* 7.9* MAGNESIUM -- 1.02 0.89 0.83 PHOS -- 7.5* 6.7* 5.3* LFT's: Recent Labs 07/19/18 0941 06/07/18 1042 05/25/18 0830 BILITOT 0.3 0.4 0.2 ALBUMIN 3.5 3.3 3.5 ALKPHOS 101 100 91 ALT 11 13 10 AST 18 19 17 IMPRESSION/ RECOMMENDATIONS # ESRD due to failed Transplant: - S/p failed DDTxp -2002 with recurrent IgA nephropathy,DGF and prograf toxicity also had left kenaitze kidney nephrectomy due to papillary ca in 2017 presented with uncontrolled blood pressure and anasarca.. Recent worsening likely due to acute on chronic rejection vs prerenal with acute intravascularvolume depletion.Also have significant proteinuria due to chronic transplant nephropathy - Has right IJ TDC . No indication of emergent dialysis today. - Tolerated 2 hours of first initiation dialysis on Wednesday. He will have dialysis tomorrow for 2.5 hours, 2K bath and UF 2 kg - Strict Is and Os,daily weights - Avoid nephrotoxins like NSAID's and renally dose medications # Bone and Mineral Disease: Calcium levels are at goal but elevated phos levels due to renal failure. Hold off calcitriol , continue Tums as phos binder. # Hypertension : He is persistently hypertensive. Consider Toprol XL 200 mg in evening, Cardizem 120 mg , Losartan 100 mg and prn Hydralazine if SBP > 150 mmhg Thanks for letting us participate in the care of this patient. Seen and Discussed w/ Dr.Graber Giovani Molina Nephrology Fellow [id number] Associated attestation - Gaby Mesa MD - 07/31/2018 5:27 PM EST Nephrology Attending Physician visit note Christy Ginna Ambrose was seen and examined and discussed with the renal fellow Dr Molina My findings including history, examination and review of data as in the note above. I agree with the recommendations detailed above. Patient underwent first initiation dialysis treatment yesterday. He tolerated this well, with removal of 2 5 L of fluid. Today he reports that he feels better. He denies specific uremic symptoms. Examination is as detailed above. ?? Next dialysis tomorrow. ?? Hypertension: Recommend resume losartan at 100 mg nightly, continue diltiazem 120 mg daily, start metoprolol 200 mg nightly. As needed hydralazine We will continue to follow. Thank you for involving us in the care of this patient * Sabrian Flynn III, MD - 07/31/2018 10:50 AM EST Hospital Medicine Attending Daily Progress Note Admit Date: 07/29/2018 Hospital Day 2 days Active Hospital Problems Diagnosis ??? Hypernatremia ??? Acute renal failure ??? Hypertension Resolved Hospital Problems No resolved problems to display. PMH Active Non-Hospital Problems Diagnosis ??? Kidney transplant failure ??? CKD (chronic [...] GFR 15-29 ml/min ??? 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 H/O [...] skin) ??? IgA nephropathy ??? Gout ??? Left leg DVT ??? Epilepsy Inpatient Medications: Scheduled ??? allopurinol 100 mg Oral Daily ??? dilTIAZem 120 mg Oral Daily ??? hydrALAZINE 125 mg Oral TID ??? levothyroxine 100 mcg Oral QAM ??? metoprolol tartrate 25 mg Oral TID ??? pantoprazole 20 mg Oral BID ??? sodium chloride 0.9 % 5 mL Intravenous BID ??? calcium carbonate 500 mg Oral TID WC ??? tacrolimus 1-1.5 mg Oral BID ??? levETIRAcetam 500 mg Oral Daily And ??? levETIRAcetam 250 mg Oral Nightly ??? mycophenolate 500 mg Oral BID ??? amLODIPine 10 mg Oral Daily Continuous infusions: PRN: labetalol, sodium chloride 0.9 %, lidocaine, prochlorperazine, acetaminophen, senna-docusate Interval History: HD session yesterday, tolerated well. Some confusion overnight. High BPs overnight Feeling okay this AM and is without complaints. Denies confusion, headaches, sob/cp, abdominal pain, n/v, d/c, f/c, tremors. Physical Exam Vitals Range last 24 hrs Temperature Temp: [35.9 ??C (96.7 ??F)-36.6 ??C (97.9 ??F)] Heart Rate Heart Rate: [60-71] Blood Pressure BP: (139-199)/(80-114) Respiratory Rate Resp: [12-20] SpO2 SpO2: [88 %-96 %] Intake/Output Summary (Last 24 hours) at 07/31/2018 1050 Last data filed at 07/31/2018 0900 Gross per 24 hour Intake 745 ml Output 2350 ml Net -1605 ml Patient Vitals for the past 168 hrs: Weight 07/30/18 0055 101.2 kg (223 lb 1.7 oz) Body mass index is 31.76 kg/m??. Physical Exam GEN: NAD, in bed, anasarca present HEENT: at/nc, anicteric CV: RRR, no m/r/g PULM: cta b/l ABD: soft, nt/nd, nabs EXT: 3+ pitting edema throughout NEURO: alert and oriented x 3 although some perseveration SKIN: no rash. Studies reviewed in eDH. Remarkable for the following: LABS: Last 3 wbc, hgb, hct plt Recent Labs 07/29/186 07/19/18 0941 06/07/18 1042 WBC 3.8* 4.2 4.2 HGB 9.2* 8.8* 8.6* HCT 28.9* 27.3* 25.3* PLATELET 105* 145 110* Last 3 Lytes Recent Labs 07/31/18 0813 07/29/186 07/19/18 0941 NA 147* 150* 148* 148* K 4.9 4.9 5.0 5.0 CL 107 112* 112* 112* CO2 17* 18* 18* 18* BUN 76* 94* 72* 72* CREATININE 8.91* 9.93* 7.40* 7.40* Last 3 LFTs Recent Labs 07/19/18 0941 06/07/18 1042 05/25/18 0830 AST 18 19 17 ALT 11 13 10 ALKPHOS 101 100 91 BILITOT 0.3 0.4 0.2 Assessment / Plan: 57 y.o. 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 ?? # Acute on chronic renal injury with IgA Nephropathy - start of HD 07/30/18 Possibly recurrence of primary disease, medication toxicity, graft failure, lower concern for obstructive cause or hypovolemia. Presents with apparent volume overload (anasarca, pulmonary edema) and uremia. - Cont HD per renal recommendations - BP control - Holding losartan for now - Hold calcitriol and sodium bicarb per nephro - Calcium carb for phos bind - F/u additional nephro recs - D/w Dr Rivera, continuing immune suppression for now ?? # Hypernatremia: Improving Possibly taking excess sodium bicarb after Jul 19 when dose was supposed to drop; could not find [employer]. Seems unusual for this to be just from free water deficit (~3.6L) since he reports normal and typical intake. - Encourage PO water intake, trend - Holding sodium bicarb tabs ?? # HTN: Still a problem but asymptomatic. - Increased amlodipine to 10 mg qd on admission - Start prn labetalol today - Holding losartan - Continue home hydralazine 125 mg TID, diltiazem SR 120 mg qd, metop 50 TID - D/C lasix now that he is starting HD ?? # Epilepsy/TBI - Home Keppra 500 mg ?? # Hypothyroidism - Home levothyroxine 100 mcg qAM IV access: PIV Tubes/Drains:none DVT PPX: heparin Anticipated Disposition: 3-4 days Team Pager(MD Coverage 01/02): #[phone] PCP: Carroll Fuentes DO [phone] Attestation: IPI Certification I certify that I am a D-H credentialed attending provider with admitting privileges and that the patient meets or has met medical necessity to require an inpatient IPI level of care meeting a minimumof two midnights or is on the [facility] inpatient only procedure list (status C) due to: acute kidney injury necessitating close monitoring of fluid balance such as intravenous fluids and/or titration of medication to achieve optimal effect and minimize the chance of immediate or severe side effects SABRINA FLYNN III, MD 07/31/2018 * Anand Robles - 07/31/2018 10:21 AM EST INTERVENTIONAL RADIOLOGY Inpatient Progress Note Admitted 07/29/2018 Procedure(s): Tunneled HD catheter placment Post-procedure day: #1 Time of patient encounter: 9am 24 Hour Events: No acute events. Pt had successful HD run. No pain. Small amount of bleeding under clear dressing. Last Value 24 Hour Range Temperature 36.6 ??C (97.9 ??F) Temp: [35.9 ??C (96.7 ??F)-36.6 ??C (97.9 ??F)] Heart Rate 66 Heart Rate: [60-71] Blood Pressure 139/88 BP: (139-199)/(80-114) Respiratory Rate 18 Resp: [12-20] SpO2 90 % SpO2: [88 %-96 %] Physical Exam GEN No distress, A&O Vasc ACCESS RIJ tunneled HD catheter. Small amount of blood under clear dressing. Drains/Tubes: NA Labs: Reviewed Micro: NA Imaging: NA Assessment: 57 y.o. male with ESRD from IgA nephropathy, failed AVF and worsening renal function s/p RIJ tunneled HD catheter placement on 07/30. Catheter functioning appropriately. Small amount of blood under clear dressing. Plan: Continue HD. Consider sterile dressing change before/after next HD run. * Mya Ramirez RN - 07/30/2018 4:56 PM EST Pt arrived to dialysis from Interventional Radiology in a bed, awake, alert, OX4. New tunneled HD catheter accessed without difficulty. Treatment uneventful, patient remained awake and alert throughout, denied pain. Catheter de-accessed without difficulty. 2 liters of fluid removed over a two hour treatment. Report given to SAVANNA Boo. * Gaby Mesa MD - 07/30/2018 2:20 PM EST Hospital Medicine Attending Daily Progress Note Admit Date: 07/29/2018 Hospital Day 1 day Active Hospital Problems Diagnosis ??? Hypernatremia ??? Acute renal failure ??? Hypertension Resolved Hospital Problems No resolved problems to display. PMH Active Non-Hospital Problems Diagnosis ??? Kidney transplant failure ??? CKD (chronic [...] GFR 15-29 ml/min ??? 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 H/O [...] skin) ??? IgA nephropathy ??? Gout ??? Left leg DVT ??? Epilepsy Inpatient Medications: Scheduled ??? allopurinol 100 mg Oral Daily ??? dilTIAZem 120 mg Oral Daily ??? hydrALAZINE 125 mg Oral TID ??? levothyroxine 100 mcg Oral QAM ??? metoprolol tartrate 25 mg Oral TID ??? pantoprazole 20 mg Oral BID ??? sodium chloride 0.9 % 5 mL Intravenous BID ??? calcium carbonate 500 mg Oral TID WC ??? tacrolimus 1-1.5 mg Oral BID ??? levETIRAcetam 500 mg Oral Daily And ??? levETIRAcetam 250 mg Oral Nightly ??? mycophenolate 500 mg Oral BID ??? amLODIPine 10 mg Oral Daily ??? lidocaine-EPINEPHrine Continuous infusions: PRN: sodium chloride 0.9 %, lidocaine, prochlorperazine, acetaminophen, senna- docusate, epoetin kerry Interval History: Admitted to [facility] Renal consulted Feeling okay this AM and is without complaints. Denies confusion, headaches, sob/cp, abdominal pain, n/v, d/c, f/c, tremors. Physical Exam Vitals Range last 24 hrs Temperature Temp: [35.9 ??C (96.7 ??F)-36.4 ??C (97.5 ??F)] Heart Rate Heart Rate: [54-64] Blood Pressure BP: (156-199)/(82-128) Respiratory Rate Resp: [12-26] SpO2 SpO2: [90 %-95 %] Intake/Output Summary (Last 24 hours) at 07/30/2018 1421 Last data filed at 07/30/2018 1320 Gross per 24 hour Intake 25 ml Output 200 ml Net -175 ml Patient Vitals for the past 168 hrs: Weight 07/30/18 0055 101.2 kg (223 lb 1.7 oz) Body mass index is 31.76 kg/m??. Physical Exam GEN: NAD, in bed, anasarca present HEENT: at/nc, anicteric CV: RRR, no m/r/g PULM: cta b/l ABD: soft, nt/nd, nabs EXT: 3+ pitting edema throughout NEURO: alert and oriented x 3 SKIN: no rash. Studies reviewed in eDH. Remarkable for the following: LABS: Last 3 wbc, hgb, hct plt Recent Labs 07/29/186 07/19/18 0941 06/07/18 1042 WBC 3.8* 4.2 4.2 HGB 9.2* 8.8* 8.6* HCT 28.9* 27.3* 25.3* PLATELET 105* 145 110* Last 3 Lytes Recent Labs 07/29/18213507/19/18 0941 06/07/18 1042 NA 150* 148* 148* 141 141 K 4.9 5.0 5.0 4.7 4.7 CL 112* 112* 112* 110* 110* CO2 18* 18* 18* 17* 17* BUN 94* 72* 72* 50* 50* CREATININE 9.93* 7.40* 7.40* 3.64* 3.64* Last 3 LFTs Recent Labs 07/19/18 0941 06/07/18 1042 05/25/18 0830 AST 18 19 17 ALT 11 13 10 ALKPHOS 101 100 91 BILITOT 0.3 0.4 0.2 Assessment / Plan: 57 y.o. man with IgA nephropathy s/p renal transplant now with recurrent end stage renal dysfunction and volume overload, pruritis, possible uremic encephalopathy and poorly controlled hypertension. ?? # Acute on chronic renal injury with IgA Nephropathy Possibly recurrence of primary disease, medication toxicity, lower concern for obstructive cause orhypovolemia. Presents with apparent volume overload (anasarca, pulmonary edema) and uremia. - Request IR placement of HD line for HD today - BP control - Holding losartan for now - Hold calcitriol and sodium bicarb per nephro - Calcium carb for phos bind - F/u additional nephro recs - D/w Dr Rivera, continuing immune suppression for now ?? # Hypernatremia Possibly taking excess sodium bicarb after Jul 19 when dose was supposed to drop; could not find Prashanth Valentin. Seems unusual for this to be just from free water deficit (~3.6L) since he reports normal and typical intake. - Encourage PO water intake, trend - Holding sodium bicarb tabs ?? # HTN - Increase amlodipine to 10 mg qd - Holding losartan - Continue home hydralazine 125 mg TID, diltiazem SR 120 mg qd, metop 50 TID - D/C lasix now that he is starting HD ?? # Epilepsy/TBI - Home Keppra 500 mg ?? # Hypothyroidism - Home levothyroxine 100 mcg qAM IV access: PIV Tubes/Drains:none DVT PPX: heparin Anticipated Disposition: 3-4 days Team Pager( Coverage 01/02): #[phone] PCP: Carroll Fuentes DO [phone] Attestation: IPI Certification I certify that I am a D-H credentialed attending provider with admitting privileges and that the patient meets or has met medical necessity to require an inpatient IPI level of care meeting a minimumof two midnights or is on the [facility] inpatient only procedure list (status C) due to: acute kidney injury necessitating close monitoring of fluid balance such as intravenous fluids and/or titration of medication to achieve optimal effect and minimize the chance of immediate or severe side effects SABRINA FLYNN III, MD 07/30/2018 * Gaby Mesa MD - 07/30/2018 12:10 PM EST HYPERTENSION/ NEPHROLOGY CONSULT PATIENT: Christy Ambrose : 1960 REASON FOR CONSULTATION: Referred for evaluation for DINING ROOM COORDINATOR in a failed transplant ID: 57 y/o with PMH of ESRD secondary to IgA nephropathy s/p donor renal transplant in 2002 (complicated by delayed graft function, recurrent IgA nephropathy and Prograf toxicity) on immunosuppression therapy (tacrolimus and??mycophenolate), 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 S: Have only 200 cc UOP with iv lasix blood pressures are still not under control .C/o dyspnea on exertion ,denied any chest pain. PHYSICAL EXAM: Intake/Output Summary (Last 24 hours) at 07/30/2018 1214 Last data filed at 07/30/2018 1100 Gross per 24 hour Intake 0 ml Output 200 ml Net -200 ml Last value Range last 24 hrs Temperature Temp: 36.3 ??C (97.3 ??F) Temp: [36.3 ??C (97.3 ??F)-36.4 ??C (97.5 ??F)] Heart Rate Heart Rate: 61 Heart Rate: [54-64] Blood Pressure BP: 168/82 BP: (156-199)/(82-128) Respiratory Rate Resp: 20 Resp: [12-26] SpO2 SpO2: 91 % SpO2: [90 %-95 %] Appearance - Alert, sitting in bed Skin - No exanthem. HEENT - Sclera white. Mucous membranes moist. Chest: . Lungs have bilateral wheezes with crept's extending up to interscapular areas. Heart - S1 and S2 clear w/o murmur, gallop, or rub. JVP not elevated. Abd - Soft. + BS. No bruit. Non tender. ,significant pitting sacral edema. Ext - left arm with prior surgical berry of fistula and was much swollen than right arm Warm. No cyanosis. +3 bilateral dependent edema. Neuro -Mild tremors. STUDIES: Labs: CBC: Recent Labs 07/29/18213507/19/18 0941 06/07/18 1042 WBC 3.8* 4.2 4.2 HGB 9.2* 8.8* 8.6* PLATELET 105* 145 110* Chemistry: Recent Labs 07/29/18213507/19/18 0941 06/07/18 1042 NA 150* 148* 148* 141 141 K 4.9 5.0 5.0 4.7 4.7 CL 112* 112* 112* 110* 110* CO2 18* 18* 18* 17* 17* BUN 94* 72* 72* 50* 50* CREATININE 9.93* 7.40* 7.40* 3.64* 3.64* GLUCOSE 123 105 105 100 100 Recent Labs 07/29/18 2136 07/19/18 0941 06/07/18 1042 CALCIUM 8.1* 7.7* 7.7* 7.9* 7.9* MAGNESIUM 1.02 0.89 0.83 PHOS 7.5* 6.7* 5.3* LFT's: Recent Labs 07/19/18 0941 06/07/18 1042 05/25/18 0830 BILITOT 0.3 0.4 0.2 ALBUMIN 3.5 3.3 3.5 ALKPHOS 101 100 91 ALT 11 13 10 AST 18 19 17 IMPRESSION/ RECOMMENDATIONS:57 y/o with PMH of ESRD secondary to IgA nephropathy s/p donorrenal transplant in 2002 (complicated by delayed graft function, recurrent IgA nephropathy and Prograf toxicity) on immunosuppression therapy (tacrolimus and??mycophenolate), 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 1,Failed Transplant: - S/p failed DDTxp -2002 with recurrent IgA nephropathy,DGF and prograf toxicity also had left kenaitze kidney nephrectomy due to papillary ca in 2016 presented with uncontrolled blood pressure and anasarca.. Recent worsening likely due to acute on chronic rejection vs prerenal with acute intravascularvolume depletion.Also have significant proteinuria due to chronic transplant nephropathy ..Plannedto initiate today as he failed lasix challenge for fluid overload and metabolic derangements. Plan: - IR planning non tunneled line today followed by initiation of dialysis. - HD orders:2 hrs:3k bath:2 kg UF - Hypernatremia will get corrected with HD as we use 140 bath. - Strict Is and Os,daily weights - Avoid nephrotoxins like NSAID's and renally dose medications 2,Bone and Mineral Disease: Calcium levels are at goal but elevated phos levels due to renal failure.Will d/c calcitriol , add Tums as phos binder. 3,Accelerated hypertension: On hydralazine ,lasix and amlodipine which was added today .Will follow up with pressures followingdialysis and adjust (consider labetalol for better control). Thanks for letting us participate in the care of this patient. Seen and Discussed w/ Dr.Bonita Rodríguez MD Nephrology Fellow #[id number] Renal Attending Inpatient Consult We are asked by Dr Flynn to see Christy Ambrose in consultation regarding initiation of chronic dialysis for ESRD 2/2 renal transplant graft failure Christy Ambrose was seen and examined and discussed with the renal fellow and the data and chart werereviewed. My findings including history, examination and review of data are accurately detailed in the note above. Please see Dr Flynn's admission note dated today for additional details ?? First dialysis scheduled for today. Initiation protocol. We will aim for 2 L ultrafiltration ?? Temporary internal jugular catheter placed by interventional radiology. Will require tunneled catheter ?? Hypertension: Recommend resume losartan. Increase metoprolol dose as needed ?? Please refer to [facility] for placement for chronic outpatient dialysis ?? Preserve both upper extremities as far as possible. Labs may be drawn at dialysis. Do not place PICC in this patient to preserve arm veins critical for permanent hemodialysis access . This is an evidence and guideline-based recommendation.Access for blood draws can be provided by a non tunnelledinternal jugular catheter catheter placed by Interventional Radiology. (order internal jugular TLC). ?? If opiates are indicated, Morphine, codeine, oxycodone, accumulate and have toxic metabolites inCKD stage 5 and dialysis patients. Fentanyl, methadone, dilaudid, are preferable. Tramadol dose should be reduced by 50% We will continue to follow. Thank you for involving us in the care of this patient * Dewayne Arellano RN - 07/30/2018 11:52 AM EST ANGIO NURSING DATABASE Name: CHRISTY AMBROSE Date of : 1960 AGE: 57 y.o. Address: [address] [place] [phone] (home) Mobile: Telephone Information: Referring Provider: No ref. provider found REASON FOR VISIT: Tunneled HD line placement Date/time of procedure: 07/30/18 Pertinent info from Pre-call (if any): Labs ordered: Meds stopped: Plan Planned procedure: IR tunneled HD catheter placement Labs to be performed day of procedure: No labs Sedation: moderate (conscious sedation) Prophylactic antibiotic : None Contrast: Omnipaque Additional medications for procedure: Lidocaine Planned access site: TBD Position: Supine Consent: Pending Allergies Allergen Reactions ??? Benazepril Hcl ??? [...] ??? Rosacea L71.9 ??? Anticoagulated on Coumadin Z51.81, Z79.01 ??? Atopic rhinitis J30.9 ??? Injury [...] ml/min N18.4 ??? 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 [...] Entered not Verified Procedure Date: 09/19/2010 ??? KIDNEY TRANSPLANT KIDNEY TRANSPLANT / RECIPIENT/LT Procedure Date: 11/26/2002 ? ? PRO DEBRIDEMENT SUBCUTANEOUS TISSUE 20 SQCM/< Left 02/20/2016 DEBRIDEMENT SKIN AND SUBCU, HEAD/NECK performed by Miguel Angel Moreno MD at [facility] MAIN OR ??? PRO DECOMPRESS FOREARM, BRACH ART EXPLOR Left 04/06/2018 FASCIOTOMY, FOREARM, WITH BRACHIAL ARTERY EXPLORATION (WRVU 8.41) performed by Lida Peter MDat [facility] OR ??? PRO DIRECT REPAIR RUPTURED ANEURYSM, AXILLO-BRACHIAL ARM INCIS Left 04/06/2018 @REPAIR, RUPTURED AXILLARY OR BRACHIAL ARTERY ANEURYSM BY ARM INCISION (WRVU *) performed by Lida Peter MD at [facility] OR ??? PRO EXC PAROTD, TOTAL, UNILAT RAD NECK Left 02/05/2016 @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, TOTAL, WITH UNILATERAL RADICAL NECK DISSECTION performed by Miguel Angel Moreno MD at [facility] OR ??? PRO EXC SKIN MALIG 3.1-4CM FACE, FACIAL Left 02/05/2016 EXC MALIGNANT LESION, 3.1 TO 4.0CM, FACE performed by Miguel Angel Moreno MD at [facility] OR ? ? PRO EXC SKIN MALIG >4CM TRUNK, ARM, LEG 04/19/2012 EXC MALIGNANT LESION, MICHAEL > 4.0CM, TRUNK performed by SABRINA SANCHEZ at [facility] OR ??? PRO LAP, RADICAL NEPHRECTOMY Left 05/31/2017 @LAPAROSCOPY, RADICAL NEPHRECTOMY (WRVU 25.06) performed by Jax Mills MD at [facility] OR ??? PRO LIGATN ANGIOACCESS AV FISTULA Left 04/19/2018 LIGATION OR BANDING OF HEMODIALYSIS FISTULA OR GRAFT UPPER EXTREMITY (WRVU 6.25) performed by Odalis Elias MD at [facility] OR ??? PRO NEGATIVE PRESSURE WOUND THERAPY, LESS THAN OR EQUAL TO 50 SQCM Left 04/19/2018 DRESSING CHANGE (VAC ASSISTED) UP TO 50SQ.CM (WRVU 0.55) performed by Odalis Elias MD [facility] MAIN OR ??? PRO REBL VES GRAFT, UP EXTREM Left 04/06/2018 REPAIR BLOOD VESSEL WITH GRAFT OTHER THAN VEIN, UPPER EXTREMITY (WRVU 15.83) performed by Lida Peter MD at [facility] MAIN OR ??? PRO RELIEVE PRESSURE ON NERVE(S) Left 04/06/2018 (MSURG) CARPAL TUNNEL (WRVU 4.82) performed by Silviano Sparks MD at [facility] MAIN OR ??? PRO REPAIR INTERMEDIATE S/A/T/E 2.6-7.5 CM 04/19/2012 REPAIR INTERMEDIATE WOUND, (NO HANDS OR FEET) 2.6 TO 7.5CM, UPPER EXTREMITY performed by SABRINA SANCHEZ at [facility] MAIN OR ? ? PRO REPAIR INTERMEDIATE S/A/T/E > 30.0 CM Left 04/14/2018 REPAIR INTERMEDIATE WOUND, (NO HANDS OR FEET) >30.0CM, UPPER EXTREMITY (WRVU 5) performed by Yimi Easton MD at [facility] MAIN OR ??? PRO REVISE MEDIAN N/CARPAL TUNNEL SURG Left 04/06/2018 MEDIAN NERVE DECOMPRESSION (CARPAL TUNNEL RELEASE) (WRVU 4.97) performed by Lida Peter MD [facility] OR ? ? PRO SPLIT GRFT TRUNK, ARM, LEG <100SQCM Left 04/26/2018 SPLIT THICK SKIN GRAFT,100 SQ CM OR LESS, ARMS (WRVU 9.9) performed by Silviano Sparks MD at [facility] MAIN OR ? ? PRO SPLIT GRFT, HEAD, FAC, HAND, FEET <100SQCM N/A 02/20/2016 SPLIT THICKNESS SKIN SPLIT GRAFT,100SQ CM OR LESS, NECK performed by Miguel Angel Moreno MD at [facility] MAIN OR ??? PRO SPLIT GRFT, TRUNK, ARM, LEG EA 100SQCM N/A 04/26/2018 EA.ADDITIONAL 100SQ.CM STSG (WRVU 1.72) performed by Silviano Sparks MD at [facility] MAIN OR ??? PRO UPPER GI ENDOSCOPY, BIOPSY N/A 05/13/2017 EGD WITH BIOPSY (WRVU 2.49) performed by Aditya Barrera MD at [facility] ENDOSCOPY ??? PRO VASCULAR SURGERY PROCEDURE UNLIST Left 11/20/2015 LIGATION\REPAIR AV FISTULA performed by Camilo Ireland MD at [facility] MAIN OR ??? PRO VASCULAR SURGERY PROCEDURE UNLIST Left 11/20/2015 EXCISION VEIN FROM HAND performed by Camilo Ireland MD at [facility] MAIN OR ??? US RENAL TRANSPLANT BIOPSY 12/31/2010 ??? US RENAL TRANSPLANT RIGHT Right 06/04/2018 US Renal Transplant Right 06/04/2018 [facility] RAD ULTRASOUND Date/Procedure Meds given/comments 07/30/18 REJ Tunneled HD line placement, 14.5 Fr Fentanyl 100 mcg IV Laboratory Results: Lab Results Component Value Date INR 1.0 06/02/2018 Lab Results Component Value Date CREATININE 9.93 (H) 07/29/2018 Lab Results Component Value Date K 4.9 07/29/2018 Lab Results Component Value Date PLATELET 105 (L) 07/29/2018 Medications: Prior to Admission medications Medication Sig Start Date End Date Taking? Authorizing Provider sodium bicarbonate 650 mg Tablet Take 1 tablet by mouth 3 times daily. 07/19/18 Anup Rivera MD losartan (COZAAR) 100 mg Tablet Take 2 tablets by mouth every morning. Patient taking differently: Take 50 mg by mouth every morning. 07/19/18 Anup Rivera MD hydrALAZINE (APRESOLINE) 25 mg Tablet Take 5 tablets by mouth 3 times daily. 07/19/18 Anup Rivera MD furosemide (LASIX) 40 mg Tablet Take 1 tablet by mouth 3 times daily. 07/19/18 07/19/19 Anup Rivera MD calciTRIol (ROCALTROL) 0.5 mcg Capsule Take 1 capsule by mouth daily. 07/19/18 Anup Rivera MD allopurinol (ZYLOPRIM) 100 mg Tablet Take 1 tablet by mouth daily. 07/19/18 Anup Rivera MD dilTIAZem (CARTIA XT) 120 mg Capsule, Sust. Release 24 hr Take 1 capsule by mouth daily. 07/01/18 nAup Rivera MD calcium carbonate 648 mg calcium Tablet Take 1 tablet by mouth 3 times daily. Take on empty stomach. 06/07/18 Anup Rivera MD acetaminophen (TYLENOL) 500 mg Tablet Take 2 tablets by mouth every 6 hours. 06/04/18 Lela Henley APRN levETIRAcetam (KEPPRA) 500 mg Tablet Take 500 mg by mouth 2 times daily. Take 500 mg every morning and 250 mg every morning. PROVIDER, HISTORICAL amLODIPine (NORVASC) 2.5 mg Tablet Take 2.5 mg by mouth daily. PROVIDER, HISTORICAL tacrolimus (PROGRAF) 1 mg Capsule Take 1 capsule by mouth nightly. 05/04/18 Anup Rivera MD tacrolimus (PROGRAF) 0.5 mg Capsule Take 3 capsules by mouth daily. 05/05/18 Anup Rivera MD metoprolol tartrate (LOPRESSOR) 50 mg Tablet Take 1 tablet by mouth 3 times daily. Patient taking differently: Take 25 mg by mouth 3 times daily. 05/03/18 Anup Rivera MD pantoprazole (PROTONIX) 20 mg Tablet, Delayed Release (E.C.) Take 1 tablet by mouth 2 times daily. 08/17/17 Anup Rivera MD mycophenolate (CELLCEPT) 250 mg Capsule Take 1 capsule by mouth 2 times daily. Kidney Transplant Z94.0. Transplant Date; 11-26-02 05/16/17 Abner Henao MD multivitamin Capsule Take 1 capsule by mouth daily. PROVIDER, HISTORICAL levothyroxine (SYNTHROID) 100 mcg Tablet Take 100 mcg by mouth daily. PROVIDER, HISTORICAL * Anand Robles - 07/30/2018 11:10 AM EST PRE-SEDATION ASSESSMENT / FOCUSED H&P Procedure: HD catheter placement Addendum: The patient's history and physical exam [...] Classification: II (soft palate, uvula, fauces visible) Anand Robles MD Interventional Marketing Financial Analyst documented in this encounter H&P Notes * Anand Robles S - 07/30/2018 9:49 AM EST Images from the original note were not included. INTERVENTIONAL RADIOLOGY FOCUSED H&P and PRE-PROCEDURE NOTE: PCP: Carroll Fuentes DO Referring Provider: No ref. 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 Presenting Diagnosis/ Complaint: Christy Ambrose is a 57 y.o. male ECF resident ([facility]) with a history of TBI, seizures on Keppra, ESRD from IgA nephropathy s/p renal transplant 11/2002 c/b tacrolimus toxicity, papillary renal cancer s/p kenaitze left nephrectomy 2016, prior LUE AVF with large size requiring revision, and recent admissions in March-May for PEA arrest after bleeding from his fistula, here with worsening renal function. Request is for placement of a tunneled HD catheter. Past Medical/Surgical History: Patient Active Problem List Diagnosis Code ??? Epilepsy G40.909 ??? Gout M10.9 ??? Hypertension I10 ??? Left leg DVT I82.402 ??? IgA nephropathy N02.8 ??? BCC (basal cell carcinoma of skin) C44.91 ??? Acne rosacea L71.9 ??? Rosacea L71.9 ??? Anticoagulated on Coumadin Z51.81, Z79.01 ??? Atopic rhinitis J30.9 ??? Injury [...] ml/min N18.4 ??? 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 [...] Entered not Verified Procedure Date: 09/19/2010 ??? KIDNEY TRANSPLANT KIDNEY TRANSPLANT / RECIPIENT/LT Procedure Date: 11/26/2002 ? ? PRO DEBRIDEMENT SUBCUTANEOUS TISSUE 20 SQCM/< Left 02/20/2016 DEBRIDEMENT SKIN AND SUBCU, HEAD/NECK performed by Miguel Angel Moreno MD at [facility] MAIN OR ??? PRO DECOMPRESS FOREARM, BRACH ART EXPLOR Left 04/06/2018 FASCIOTOMY, FOREARM, WITH BRACHIAL ARTERY EXPLORATION (WRVU 8.41) performed by Lida Peter MDat [facility] OR ??? PRO DIRECT REPAIR RUPTURED ANEURYSM, AXILLO-BRACHIAL ARM INCIS Left 04/06/2018 @REPAIR, RUPTURED AXILLARY OR BRACHIAL ARTERY ANEURYSM BY ARM INCISION (WRVU *) performed by Lida Peter MD at [facility] MAIN OR ??? PRO EXC PAROTD, TOTAL, UNILAT RAD NECK Left 02/05/2016 @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, TOTAL, WITH UNILATERAL RADICAL NECK DISSECTION performed by Miguel Angel Moreno MD at [facility] OR ??? PRO EXC SKIN MALIG 3.1-4CM FACE, FACIAL Left 02/05/2016 EXC MALIGNANT LESION, 3.1 TO 4.0CM, FACE performed by Miguel Angel Moreno MD at [facility] OR ? ? PRO EXC SKIN MALIG >4CM TRUNK, ARM, LEG 04/19/2012 EXC MALIGNANT LESION, MICHAEL > 4.0CM, TRUNK performed by SABRINA SANCHEZ at [facility] OR ??? PRO LAP, RADICAL NEPHRECTOMY Left 05/31/2017 @LAPAROSCOPY, RADICAL NEPHRECTOMY (WRVU 25.06) performed by Jax Mills MD at [facility] OR ??? PRO LIGATN ANGIOACCESS AV FISTULA Left 04/19/2018 LIGATION OR BANDING OF HEMODIALYSIS FISTULA OR GRAFT UPPER EXTREMITY (WRVU 6.25) performed by Odalis Elias MD at [facility] MAIN OR ??? PRO NEGATIVE PRESSURE WOUND THERAPY, LESS THAN OR EQUAL TO 50 SQCM Left 04/19/2018 DRESSING CHANGE (VAC ASSISTED) UP TO 50SQ.CM (WRVU 0.55) performed by Odalis Elias MD [facility] OR ??? PRO REBL VES GRAFT, UP EXTREM Left 04/06/2018 REPAIR BLOOD VESSEL WITH GRAFT OTHER THAN VEIN, UPPER EXTREMITY (WRVU 15.83) performed by Lida Peter MD at [facility] OR ??? PRO RELIEVE PRESSURE ON NERVE(S) Left 04/06/2018 (MSURG) CARPAL TUNNEL (WRVU 4.82) performed by Silviano Sparks MD at [facility] OR ??? PRO REPAIR INTERMEDIATE S/A/T/E 2.6-7.5 CM 04/19/2012 REPAIR INTERMEDIATE WOUND, (NO HANDS OR FEET) 2.6 TO 7.5CM, UPPER EXTREMITY performed by SABRINA SANCHEZ at [facility] MAIN OR ? ? PRO REPAIR INTERMEDIATE S/A/T/E > 30.0 CM Left 04/14/2018 REPAIR INTERMEDIATE WOUND, (NO HANDS OR FEET) >30.0CM, UPPER EXTREMITY (WRVU 5) performed by Yimi Easton MD at [facility] MAIN OR ??? PRO REVISE MEDIAN N/CARPAL TUNNEL SURG Left 04/06/2018 MEDIAN NERVE DECOMPRESSION (CARPAL TUNNEL RELEASE) (WRVU 4.97) performed by Lida Peter MD [facility] MAIN OR ? ? PRO SPLIT GRFT TRUNK, ARM, LEG <100SQCM Left 04/26/2018 SPLIT THICK SKIN GRAFT,100 SQ CM OR LESS, ARMS (WRVU 9.9) performed by Silviano Sparks MD at [facility] MAIN OR ? ? PRO SPLIT GRFT, HEAD, FAC, HAND, FEET <100SQCM N/A 02/20/2016 SPLIT THICKNESS SKIN SPLIT GRAFT,100SQ CM OR LESS, NECK performed by Miguel Angel Moreno MD at [facility] MAIN OR ??? PRO SPLIT GRFT, TRUNK, ARM, LEG EA 100SQCM N/A 04/26/2018 EA.ADDITIONAL 100SQ.CM STSG (WRVU 1.72) performed by Silviano Sparks MD at [facility] MAIN OR ??? PRO UPPER GI ENDOSCOPY, BIOPSY N/A 05/13/2017 EGD WITH BIOPSY (WRVU 2.49) performed by Adtiya Barrera MD at [facility] ENDOSCOPY ??? PRO VASCULAR SURGERY PROCEDURE UNLIST Left 11/20/2015 LIGATION\REPAIR AV FISTULA performed by Camilo Ireland MD at [facility] MAIN OR ??? PRO VASCULAR SURGERY PROCEDURE UNLIST Left 11/20/2015 EXCISION VEIN FROM HAND performed by Camilo Ireland MD at [facility] MAIN OR ??? US RENAL TRANSPLANT BIOPSY 12/31/2010 ??? US RENAL TRANSPLANT RIGHT Right 06/04/2018 US Renal Transplant Right 06/04/2018 [facility] RAD ULTRASOUND Medications: No current facility-administered medications on file prior to encounter. Current Outpatient Medications on File Prior to Encounter Medication Sig Dispense Refill ??? sodium bicarbonate 650 mg Tablet Take 1 tablet by mouth 3 times daily. 90 tablet 11 ??? losartan (COZAAR) 100 mg Tablet Take 2 tablets by mouth every morning. (Patient taking differently: Take 50 mg by mouth every morning. ) 60 tablet 11 ??? hydrALAZINE (APRESOLINE) 25 mg Tablet Take 5 tablets by mouth 3 times daily. 450 tablet 11 ??? furosemide (LASIX) 40 mg Tablet Take 1 tablet by mouth 3 times daily. 90 tablet 11 ??? calciTRIol (ROCALTROL) 0.5 mcg Capsule Take 1 capsule by mouth daily. 30 capsule 11 ??? allopurinol (ZYLOPRIM) 100 mg Tablet Take 1 tablet by mouth daily. 30 tablet 11 ??? dilTIAZem (CARTIA XT) 120 mg Capsule, Sust. Release 24 hr Take 1 capsule by mouth daily. 90 capsule 3 ??? calcium carbonate 648 mg calcium Tablet Take 1 tablet by mouth 3 times daily. Take on empty stomach. 90 tablet 11 ??? acetaminophen (TYLENOL) 500 mg Tablet Take 2 tablets by mouth every 6 hours. 30 tablet 1 ??? levETIRAcetam (KEPPRA) 500 mg Tablet Take 500 mg by mouth 2 times daily. Take 500 mg every morning and 250 mg every morning. ??? amLODIPine (NORVASC) 2.5 mg Tablet Take 2.5 mg by mouth daily. ??? tacrolimus (PROGRAF) 1 mg Capsule Take 1 capsule by mouth nightly. ??? tacrolimus (PROGRAF) 0.5 mg Capsule Take 3 capsules by mouth daily. ??? metoprolol tartrate (LOPRESSOR) 50 mg Tablet Take 1 tablet by mouth 3 times daily. (Patient taking differently: Take 25 mg by mouth 3 times daily. ) ??? pantoprazole (PROTONIX) 20 mg Tablet, Delayed Release (E.C.) Take 1 tablet by mouth 2 times daily. 180 tablet 3 ??? mycophenolate (CELLCEPT) 250 mg Capsule Take 1 capsule by mouth 2 times daily. Kidney Transplant Z94.0. Transplant Date; 11-26-02 180 capsule 11 ??? multivitamin Capsule Take 1 capsule by mouth daily. ??? levothyroxine (SYNTHROID) 100 mcg Tablet Take 100 mcg by mouth daily. Allergies: Benazepril hcl; Codeine; Hydrochlorothiazide; and Pollen [...] Not on file Occupational History ??? 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 Smoking status: Former Smoker Packs/day: 0.25 Years: 1.50 Pack years: 0.37 Types: Cigarettes Last attempt to quit: 12/03/2000 Years since quittin.6 ??? Smokeless tobacco: Former User Quit date: 04/14/2001 Substance and Sexual Activity ??? Alcohol use: No ??? Drug use: No Comment: havent in /1995 ??? Sexual activity: Not on file Comment: Deferred Other Topics Concern ??? Not on file Social History Narrative ??? Not on file Significant Family History: Family History Problem Relation Age of Onset ??? Pancreatitis Father Pertinent ROS: as per HPI Labs: Lab Results Component Value Date WBC 3.8 (L) 07/29/2018 HCT 28.9 (L) 07/29/2018 PLATELET 105 (L) 07/29/2018 INR 1.0 06/02/2018 BUN 94 (H) 07/29/2018 CREATININE 9.93 (H) 07/29/2018 ALKPHOS 101 07/19/2018 AST 18 07/19/2018 ALBUMIN 3.5 07/19/2018 BILIDIR 0.2 05/15/2017 BILITOT 0.3 07/19/2018 ALT 11 07/19/2018 PROT 5.9 (L) 07/19/2018 Imaging: Physical Exam: Pending (to be performed in angio the day of procedure) ASA: Pending (to be assessed in angio the day of procedure) Mallampati Class: Pending (to be assessed in angio the day of procedure) Assessment: 57 y.o. 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 Plan: Will attempt tunneled line with fentanyl but may need to place temp catheter instead and exchange for tunneled line prior to discharge. Plan Planned procedure: IR tunneled HD catheter placement Labs to be performed day of procedure: No labs Sedation: moderate (conscious sedation) Prophylactic antibiotic : None Contrast: Omnipaque Additional medications for procedure: Lidocaine Planned access site: TBD Position: Supine Consent: Pending 07/30/2018 * Kurt Aguilar MD - 07/29/2018 11:00 PM EST Inpatient Hospital Medicine - Admission Note Admitted 07/29/2018 Pertinent Hospital Problems Active Hospital Problems Diagnosis ??? Acute renal failure Resolved Hospital Problems No resolved problems to display. HPI This is a 57 y.o. male E[facility] resident (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 As of Jul [address] Rviera, the patient's graft function was not recovering. Was around baseline ~2.5 as of his March presentation, then Cr around 3.3 when he presented in May with a fall. Cr on this Jul 19 clinic visit was 7.[address] Rivera anticipated imminent dialysis needs. The patient reports taking his medications as prescribed. He has not noticed any change in his urine output. Denies any flank pain but does describe ~2 months of stable pelvic pain. He has been gaining significant fluid weight and is swollen in his entire body. He also reports new diffuse itching. Mild cough and stable shortness of breath. Outside labs on Wednesday supposedly showed Cr 11 so admission was recommended after discussing with Dr. Rivera. ROS Pertinent positives per HPI. All other systems reviewed and negative. Home Meds No current facility-administered medications on file prior to encounter. Current Outpatient Medications on File Prior to Encounter Medication Sig Dispense Refill ??? sodium bicarbonate 650 mg Tablet Take 1 tablet by mouth 3 times daily. 90 tablet 11 ??? losartan (COZAAR) 100 mg Tablet Take 2 tablets by mouth every morning. (Patient taking differently: Take 50 mg by mouth every morning. ) 60 tablet 11 ??? hydrALAZINE (APRESOLINE) 25 mg Tablet Take 5 tablets by mouth 3 times daily. 450 tablet 11 ??? furosemide (LASIX) 40 mg Tablet Take 1 tablet by mouth 3 times daily. 90 tablet 11 ??? calciTRIol (ROCALTROL) 0.5 mcg Capsule Take 1 capsule by mouth daily. 30 capsule 11 ??? allopurinol (ZYLOPRIM) 100 mg Tablet Take 1 tablet by mouth daily. 30 tablet 11 ??? dilTIAZem (CARTIA XT) 120 mg Capsule, Sust. Release 24 hr Take 1 capsule by mouth daily. 90 capsule 3 ??? calcium carbonate 648 mg calcium Tablet Take 1 tablet by mouth 3 times daily. Take on empty stomach. 90 tablet 11 ??? acetaminophen (TYLENOL) 500 mg Tablet Take 2 tablets by mouth every 6 hours. 30 tablet 1 ??? levETIRAcetam (KEPPRA) 500 mg Tablet Take 500 mg by mouth 2 times daily. Take 500 mg every morning and 250 mg every morning. ??? amLODIPine (NORVASC) 2.5 mg Tablet Take 2.5 mg by mouth daily. ??? tacrolimus (PROGRAF) 1 mg Capsule Take 1 capsule by mouth nightly. ??? tacrolimus (PROGRAF) 0.5 mg Capsule Take 3 capsules by mouth daily. ??? metoprolol tartrate (LOPRESSOR) 50 mg Tablet Take 1 tablet by mouth 3 times daily. (Patient taking differently: Take 25 mg by mouth 3 times daily. ) ??? pantoprazole (PROTONIX) 20 mg Tablet, Delayed Release (E.C.) Take 1 tablet by mouth 2 times daily. 180 tablet 3 ??? mycophenolate (CELLCEPT) 250 mg Capsule Take 1 capsule by mouth 2 times daily. Kidney Transplant Z94.0. Transplant Date; 11-26-02 180 capsule 11 ??? multivitamin Capsule Take 1 capsule by mouth daily. ??? levothyroxine (SYNTHROID) 100 mcg Tablet Take 100 mcg by mouth daily. Past Medical & Surgical Hx Patient Active Problem List Diagnosis Code ??? Epilepsy G40.909 ??? Gout M10.9 ??? Hypertension I10 ??? Left leg DVT I82.402 ??? IgA nephropathy N02.8 ??? BCC (basal cell carcinoma of skin) C44.91 ??? Acne rosacea L71.9 ??? Rosacea L71.9 ??? Anticoagulated on Coumadin Z51.81, Z79.01 ??? Atopic rhinitis J30.9 ??? Injury [...] ml/min N18.4 ??? 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 [...] acidosis) N25.89 ??? Acute renal failure N17.9 Social Social History Socioeconomic History ??? Marital status: [...] Not on file Occupational History ??? 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 Smoking status: Former Smoker Packs/day: 0.25 Years: 1.50 Pack years: 0.37 Types: Cigarettes Last attempt to quit: 12/03/2000 Years since quittin.6 ??? Smokeless tobacco: Former User Quit date: 04/14/2001 Substance and Sexual Activity ??? Alcohol use: No ??? Drug use: No Comment: havent in /1995 ??? Sexual activity: Not on file Comment: Deferred Other Topics Concern ??? Not on file Social History Narrative ??? Not on file Family Reviewed and non-contributory. Objective Last Value 24 Hour Range Temperature 36.3 ??C (97.3 ??F) Temp: [36.3 ??C (97.3 ??F)-36.4 ??C (97.5 ??F)] Heart Rate 54 Heart Rate: [54-64] Blood Pressure (!) 160/124 BP: (156-199)/(113-124) Respiratory Rate 22 Resp: [12-26] SpO2 95 % SpO2: [90 %-95 %] Oxygen: On room air Physical Exam General Alert, mostly appropriate but slowed responses and poor recollection of short term events. No acute distress ENT MMM Cardio RRR Resp Rare crackles heard, good air movement GI Obese, soft, non-tender Musculo No acute deformity Skin Healing LUE fistula site without obvious erythema/TTP Normal warmth, no mottling Lymph 2-3+ edema / anasarca Pertinent Labs Na 150 Cl 112 BU N94 Cr 9.93 Mg 1.02 Phos 7.5 Imaging Xr Chest Pa & Lateral (generic) Result Date: 07/29/2018 EXAMINATION: XR CHEST PA AND LATERAL (GENERIC) CLINICAL HISTORY: fluid overload TECHNIQUE: Frontal and lateral views of the chest COMPARISON: None FINDINGS: No focal consolidation. There is indistinctness of the perihilar pulmonary vasculature. There are small bilateral pleural effusions. The cardiac silhouette is stable in size. Bones are grossly unchanged. Assessment & Plan Christy Ambrose is a 57 y.o. male with IgA nephropathy s/p renal transplant now with recurrent end stage renal dysfunction and volume overload, pruritis, uremic encephalopathy. # ESRD # IgA Nephropathy Possibly recurrence of primary disease, medication toxicity, lower concern for obstructive cause orhypovolemia. Anticipate HD, per my discussion with nephrology. Presents with apparent volume overload (anasarca, pulmonary edema) and uremia. - Request IR placement of HD line for HD Wednesday - BP control - Holding losartan for now - Hold calcitriol and sodium bicarb per nephro - Calcium carb for phos bind - F/u additional nephro recs - D/w Dr Rivera, continuing immune suppression for now # Hypernatremia Possibly taking excess sodium bicarb after Jul 19 when dose was supposed to dropped; could not find MAR from [facility] . Seems unusual for this to be just from free water deficit (~3.6L) since he reportsnormal and typical intake. - Encourage PO water intake, trend - Holding sodium bicarb tabs # HTN - Increase amlodipine to 10 mg qd - Holding losartan - Continue home hydralazine 125 mg TID, diltiazem SR 120 mg qd, metop 50 TID, lasix 40 mg TID # Epilepsy/TBI - Home Keppra 500 mg # Hypothyroidism - Home levothyroxine 100 mcg qAM # Other - Admit status: inpatient - Code status: FULL - IVF: none - Diet: renal - VTE ppx: holding for line - PCP: Carroll Fuentes DO [phone] Kurt Aguilar Pager #[phone] [facility] Medicine documented in this encounter Procedure Notes * Kurt Toribio MD - 08/05/2018 2:04 PM ESTAssociated Order(s): EEG AWAKE, ASLEEP, DROWSY [facility] Department of Neurology Inpatient Routine EEG Report Name of the Patient: Christy Ambrose Date of : 1960 Date of Service: 08/05/2018 Referring physician: Raulito Paulino MD BRIEF HISTORY: Christy Ambrose is a 57 y.o. 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 Course complicated by PEA arrest after bleeding from his fistula with seizure on 08/03. Neurology was consulted for stroke alert 08/03 for right hemibody weakness, aphasia post seizure. CTH repeat with stable SDH. MEDICATIONS: Current Facility-Administered Medications Medication Dose Route Frequency Provider Last Rate Last Dose ??? levETIRAcetam (KEPPRA) tablet 500 mg 500 mg Oral Nightly Kim, Flori A, EXTRACTIVE METALLURGIST 500 mg at 08/04/182038 And ??? levETIRAcetam (KEPPRA) tablet 500 mg 500 mg Oral Daily Kim, Flori A, EXTRACTIVE METALLURGIST 500 mg at 08/05/18 0837 ??? tacrolimus (PROGRAF) capsule 1 mg 1 mg Oral BID Sabrina Flynn III, MD 1 mg at 08/05/1836 ??? calcium carbonate (TUMS) chewable tablet 1,000 mg 1,000 mg Oral TID WC Sabrina Flynn III, MD 1,000 mg at 08/05/18 1129 ??? hydrALAZINE (APRESOLINE) tablet 100 mg 100 mg Oral TID Sabrina Flynn III, MD 100 mg at 08/05/18 1301 ??? metoprolol succinate (TOPROL-XL) XL tablet 200 mg 200 mg Oral Nightly Sabrina Flynn III, MD 200 mg at 08/04/182038 ??? labetalol (NORMODYNE) tablet 100 mg 100 mg Oral Q6H PRN Sabrina Flynn III, MD 100 mg at ??? losartan (COZAAR) tablet 100 mg 100 mg Oral Daily Sabrina Flynn III, MD 100 mg at 08/05/18835 ??? allopurinol (ZYLOPRIM) tablet 100 mg 100 mg Oral Daily Kurt Aguilar MD 100 mg at ??? dilTIAZem (Cardizem CD) ER capsule 120 mg 120 mg Oral Daily Kurt Aguilar MD 120 mg at 08/05/1836 ??? levothyroxine (SYNTHROID) tablet 100 mcg 100 mcg Oral QAM Kurt Aguilar MD 100 mcg at 08/05/18 0728 ??? pantoprazole (PROTONIX) tablet 20 mg 20 mg Oral BID Kurt Aguilar MD 20 mg at 08/05/18 0838 ??? sodium chloride 0.9 % flush 5 mL 5 mL Intravenous BID Kurt Aguilar MD 5 mL at 08/05/18 0838 ??? sodium chloride 0.9 % flush 5-20 mL 5-20 mL Intravenous Q1 Min PRN Kurt Aguilar MD ??? lidocaine (XYLOCAINE) 10 mg/mL (1 %) injection 3 mg 0.3 mL Subcutaneous Once PRN Kurt Aguilar MD ??? prochlorperazine (COMPAZINE) injection 10 mg 10 mg Intravenous Q6H PRN Kurt Aguilar MD 10mg at 07/30/18 1837 ??? acetaminophen (TYLENOL) tablet 650 mg 650 mg Oral Q6H PRN Kurt Aguilar MD 650 mg at 07/30/18 1738 ??? senna-docusate (PERICOLACE) 8.6-50 mg per tablet 2 tablet 2 tablet Oral BID PRN Morenita Aguilar MD ??? amLODIPine (NORVASC) tablet 10 mg 10 mg Oral Daily Kurt Aguilar MD 10 mg at 08/05/18 0836 METHODS: A 21 channel digitized electroencephalogram was performed in the [facility]. The 10/20 international system of electrode placement was used and bipolar and referential electrode montages were recorded. In addition to EEG the patient was monitored for EKGand lateral/vertical eye movements. Video was recorded during the session. The duration of the recording was 30 minutes. AUTOMATIC COIL MACHINE OPERATOR'S REPORT: Performed by: CM Patient was not sleep deprived. Sleep was attained. Photic stimulation was performed. Hyperventilation was not performed. Effort was was not adequate. Movement and other artifact was not significant. Comments:pt cooperative ELECTROENCEPHALOGRAPHER'S REPORT: Background During the awake state with the eyes closed the background consisted of a moderate amplitude, 8 Hz posterior reactive rhythm that attenuated appropriately with eye opening. Beta activity was distributed diffusely with an anterior predominance. There was a normal anterior-posterior voltage gradient.With eye opening the background activity changed to a low voltage mixture of alpha, beta, and occasional theta range frequencies. There were no significant asymmetries of background activity noted. Sleep Sleep was not obtained Hyperventilation Hyperventilation resulted was not performed because patient has Hx of SAH and SDH Photic Stimulation Photic stimulation using a step-bianchi increase in photic frequency varying from 1-21 Hertz did not result in a driving response Abnormal EEG Activity Intermittent left hemispheric temporal predominant arrhythmic mixed theta-delta slowing. Independent right hemispheric temporal predominant arrhythmic mixed theta-delta slowing. There are occasional phase reversals in the anterior quadrant that are sharply countered. EKG EKG shows sinus rhythm with heart rate of 50-60. PRIOR EE04/09/2018- 24hr EEG INTERPRETATION Generalized slowing of background. CLINICAL CORRELATION This EEG is consistent with diffuse cerebral dysfunction of non-specific etiology. No seizures. INTERPRETATION: This EEG is abnormal during the awake state. Sleep was not obtained. Hyperventilation and photic stimulation did not result in aberrant activity. There is intermittent left hemisphere temporal predominant arhythmic mixed theta delta slowing. Independent right hemispheric temporal predominant arhythmic mixed theta delta slowing. There are occasional phase reversals in the anterior quadrant that are sharply countered with no epileptiform discharges. Indicates bilateral intermittent cerebral dysfunction. No seizures. Consistent with encephalopathy, non-specific as to etiology. CLINICAL CORRELATION: This is an abnormal EEG. There is independent intermittent slowing L>R throughout the study withoccasionally sharply countered phase reversals in the right anterior quadrant. There are no epileptiform discharges or seizures captured during this EEG. If clinical suspicion for seizure is high, a longer study which captures sleep can increase sensitivity of this test. Please correlate clinically. I personally reviewed and interpreted the EEG in its entirety along with Dr. Kia Sky, neurology resident, and I agree with the above interpretation as documented. Kurt Toribio MD Attending Epileptologist CC: Carroll Fuentes DO documented in this encounter Nursing Notes * Dewayne Arellano RN - 07/30/2018 12:51 PM EST To procedure room 3 via stretcher for tunneled HD line placement. Onto table supine. All monitors, O2, safety strap in place. Med's per protocol. documented in this encounter ED Notes * Head, Camden T - 07/29/2018 11:22 PM EST Family/friend at bedside. * Cam[place] Godfrey Harper - 07/29/2018 11:21 PM EST Patient is resting comfortably. * Oliver Lynn MD - 07/29/2018 9:15 PM EST Chief Complaint Patient presents with ??? Abnormal Labs Pt. Is a 57 yo m with a h/o kidney transplantation on 11/26/02 and??left kenaitze nephrectomy??in 2016due to the finding of a papillary carcinoma. ??On 06/02 he fell and suffered a fall and SAH and on 04/06 a PEA arrest from hemorrhage due to a ruptured left arm AVF. On last visit to Dr. Rivera on 07/19/18, it was noted: ?? He has not fully recovered from his hemorrhagic??(ruptured left arm AVF) PEA/??asystolic arrest (see previous admit to [facility])his??BPs are also higher than baseline and he is progressing in his CKD.??He now has anoxic brain injury superimposed upon his chronic traumatic brain injury, and as of today-?His graft has??failed to recover completely and his creatinine now is > 7.0??mg/dL. He is clearly in stage 5??CKD, nearing dialysis. His complaints currently include bilateral lower extremity swelling that is severe. Some minor dyspnea on exertion it is been ongoing. He denies pain. His worsening kidney function has been gradual in onset constant and now severe. Allergies Allergen Reactions ??? Benazepril Hcl ??? Codeine Other (See Comments) Patient does not know reaction ??? Hydrochlorothiazide ??? Pollen Extracts Sneezing/runny nose Review of Systems Constitutional: Positive for activity change and fatigue. Negative for fever. HENT: Negative for facial swelling and sore throat. Eyes: Negative for visual disturbance. Respiratory: Positive for shortness of breath. Negative for cough. Cardiovascular: Positive for leg swelling. Negative for chest pain. Gastrointestinal: Negative for abdominal pain, diarrhea and vomiting. Genitourinary: Negative for flank pain and urgency. Musculoskeletal: Negative for arthralgias. Skin: Negative for rash. Neurological: Negative for weakness and headaches. All other systems reviewed and are negative. Patient Vitals for the past 8 hrs: BP Temp Temp src Pulse Resp SpO2 07/29/18 2115 (!) 193/114 -- -- 57 15 92 % 07/29/181930 (!) 174/115 36.4 ??C (97.5 ??F) Oral 61 20 93 % Physical Exam Constitutional: He is oriented to person, place, and time. He appears well- developed and well-nourished. HENT: Head: Normocephalic. Eyes: Conjunctivae and EOM are normal. Neck: Normal range of motion. Neck supple. Cardiovascular: Normal rate, regular rhythm and normal heart sounds. Pulmonary/Chest: Effort normal and breath sounds normal. Abdominal: Soft. He exhibits no distension. Musculoskeletal: Normal range of motion. He exhibits no edema (4+ bilateral edema nonerythematous nontender). Left arm forearm significant scarring. Bilateral hand edema Neurological: He is alert and oriented to person, place, and time. Odd affect Skin: Skin is warm and dry. Psychiatric: He has a normal mood and affect. Nursing note and vitals reviewed. Procedures MDM Number of Diagnoses or Management Options Acute kidney injury: Diagnosis management comments: 57-year-old male with history of traumatic brain injury. Kidney transplant patient in 2007 now with acute renal failure necessitating dialysis. Sent by Dr. Nix brought into the emergency department for admission. Otherwise clinically stable. Will be admitted to hospital medicine with nephrology consultation. Problem List Items Addressed This Visit None Visit Diagnoses Acute kidney injury Oliver Lynn MD 07/29/18 [id number] * John Bloom MD - 07/29/2018 4:12 PM EST EM attending brief outside phone call note: Christy Ambrose is a 57 y.o. who I was called about from [facility] about a patient at [facility]. The patient will be evaluated in the Emergency Department for uremia Pt. Is a 57 yo m with a h/o kidney transplantation on 11/26/02 and??left kenaitze nephrectomy??in 2017due to the finding of a papillary carcinoma. ??On 06/02 he fell and suffered a fall and SAH and on 04/06 a PEA arrest from hemorrhage due to a ruptured left arm AVF. On last visit to Dr. Rivera on 07/19/18, it was noted: He has not fully recovered from his hemorrhagic (ruptured left arm AVF) PEA/ asystolic arrest (seeprevious admit to [facility])his??BPs are also higher than baseline and he is progressing in his CKD.??Jez has anoxic brain injury superimposed upon his chronic traumatic brain injury, and as of today -His graft has failed to recover completely and his creatinine now is > 7.0 mg/dL. He is clearly in stage 5 CKD, nearing dialysis. Dr. Rivera was contacted today due the patient's Cr now being 11 with signs of uremia. K ok. VS ok. Thought to require emergent dialysis. No inpatient bed currently available at [facility]. Pt. will come to our ED for evaluation by the ED team and communication with nephrology. Dr. Rivera will notify nephrology now so that they are aware and prepared. John Bloom MD 07/29/18 1624 documented in this encounter Miscellaneous Notes * Plan of Care - Lucrecia Skinner RN - 2018 2:42 AM EST Problem: Patient Care Overview Goal: Plan of Care Review Outcome: Ongoing (Interventions Implemented as Appropriate) 08/05/18 1528 08/07/182014 Coping/Psychosocial Plan Of Care Reviewed With -- patient Plan of Care Review Progress progress toward functional goals as expected -- OUTCOME EVALUATION NOTE: OUTCOME SUMMARY: Patient AOx4 with some cueing/assistance with orientation questions. Q4hour neuro checks remain unchanged from baseline. At beginning of shift, patient up in chair watching television. Patient now sleeping between care in bed. No major events. Will continue to monitor and notify MD of any changes. PLAN MOVING FORWARD: D/C tomorrow, HD treatment INDIVIDUALIZED FALL PREVENTION INTERVENTIONS: Patient-specific fall risk factors per assessment: [current deficits]: Generalized weakness, seizure hx, use of assistive device Assistance [level of assistance required for transfers and ambulation]: 1A w/ RW Supervision [direct monitoring required during toileting and ADLs]: Hands on Surveillance [continuous indirect monitoring]: Call daniels within reach, hourly rounding, room close to nursing station, bed alarm set Patient-specific fall prevention interventions for sensory deficits provided, if applicable: [X] N/A CPG GOAL OUTCOME EVALUATION: * Plan of Care - Anel Villar RN - 08/07/2018 5:31 PM EST Problem: Patient Care Overview Goal: Plan of Care Review Outcome: Ongoing (Interventions Implemented as Appropriate) 08/05/18 1528 08/07/18 0850 Coping/Psychosocial Plan Of Care Reviewed With -- patient Plan of Care Review Progress progress toward functional goals as expected -- OUTCOME EVALUATION NOTE: OUTCOME SUMMARY: Pt is oriented to self, place, time and intermittently to situation. VSS with BP being hypertensive, on RA. Scheduled meds given, q4hr neuro checks unchanged. Pt had periods of agitation today and did not understand why he could not get up w/o alarm. Walked three laps around floor felt much better.Pt appetite good. Pt currently in the chair, chair alarm on, eating dinner, call light within reach, safety maintained. PLAN MOVING FORWARD: Monitor BP, d/c tomorrow INDIVIDUALIZED FALL PREVENTION INTERVENTIONS: Patient-specific fall risk factors per assessment: [current deficits]: IV sites, general weakness, intermittently confusion Assistance [level of assistance required for transfers and ambulation]: Stand by assist w/ walker Supervision [direct monitoring required during toileting and ADLs]: Hands on Surveillance [continuous indirect monitoring]: Safety checks, call light within reach, chair alarm on, fall prevention maintained, seizure precautions maintained Patient-specific fall prevention interventions for sensory deficits provided, if applicable: [X] N/A CPG GOAL OUTCOME EVALUATION: * Plan of Care - Gray Bach RN - 08/07/2018 1:41 AM EST Problem: Patient Care Overview Goal: Plan of Care Review Outcome: Ongoing (Interventions Implemented as Appropriate) 08/05/18 1528 08/06/181999 Coping/Psychosocial Plan Of Care Reviewed With -- patient Plan of Care Review Progress progress toward functional goals as expected -- OUTCOME EVALUATION NOTE: OUTCOME SUMMARY: Pt resting comfortably in the chair then eventually moving to bed. Neuro checks unchanged throughout the night. BP remain elevated throughout the night, no PRN needed yet. Pt without major complaintsthus far. Pt eager for dc on Wednesday. PLAN MOVING FORWARD: Prep for d/c on Wednesday. INDIVIDUALIZED FALL PREVENTION INTERVENTIONS: Patient-specific fall risk factors per assessment: [current deficits]: Weakness, IV, Assistance [level of assistance required for transfers and ambulation]: 1a walker Supervision [direct monitoring required during toileting and ADLs]: Arms reach Surveillance [continuous indirect monitoring]: Masimo, bed alarm, seizure precautions. Patient-specific fall prevention interventions for sensory deficits provided, if applicable: [X] Yes CPG GOAL OUTCOME EVALUATION: Goal: Individualization & Mutuality Outcome: Ongoing (Interventions Implemented as Appropriate) 07/30/18 0055 08/05/181527 Individualization Patient Specific Preferences -- Does not like coffee Patient Specific Goals -- [place], discharge Patient Specific Interventions -- Explained plan of care with pt Mutuality/Individual Preferences What Anxieties, Fears or Concerns Do You Have About Your Health or Care? I can't remember my brother's phone number -- What Questions Do You Have About Your Health or Care? How big is a kidney? -- What Information Would Help Us Give You More Personalized Care? none -- Goal: Fall Prevention-Safe Patient Handling Outcome: Ongoing (Interventions Implemented as Appropriate) 08/02/18205608/06/181999 Toribio Fall Risk History of Falling -- 25 Secondary Diagnosis -- 15 Ambulatory Aids -- 15 Intravenous Therapy/Heparin/Saline Lock -- 20 Gait/Transferring -- 10 Mental Status -- 15 Score -- 100 OTHER Toribio Fall Risk -- High Restraint Interventions Safety Promotion/Fall Prevention -- activity supervised;fall prevention program maintained;nonskid shoes/slippers when out of bed;safety round/check completed Positioning Body Position -- up in chair Daily Care Interventions Self-Care Promotion independence encouraged -- Activity Activity Type -- activity adjusted per tolerance Activity Assistance Provided -- assistance, 1 person;assistance, 2 people Assistive Device Utilized -- front-wheel walker Goal: Infection Control Outcome: Ongoing (Interventions Implemented as Appropriate) 08/06/1875208/06/181999 Safety Interventions Isolation Precautions -- standard precautions maintained Infection Prevention -- single patient room provided;rest/sleep promoted Coping Strategies Supportive Measures active listening utilized;self-care encouraged;verbalization of feelings encouraged -- * Plan of Care - Marcia Ramírez RN - 08/06/2018 7:00 PM EST Problem: Patient Care Overview Goal: Plan of Care Review Outcome: Ongoing (Interventions Implemented as Appropriate) 08/05/18152708/06/18752 Coping/Psychosocial Plan Of Care Reviewed With -- patient Plan of Care Review Progress progress toward functional goals as expected -- OUTCOME EVALUATION NOTE: OUTCOME SUMMARY: Pt oriented consistently to self, intermittently to place, time and situation. Pt continues to be impulsive however redirectable. Pt hypertensive at ~1730, scheduled BP medications given with good effect. Other VSS. Pt denies pain. Pt went to HD this AM, per report they removed 3L. Pt rested in between care. PLAN MOVING FORWARD: Discharge Wednesday INDIVIDUALIZED FALL PREVENTION INTERVENTIONS: ?? Patient-specific fall risk factors per assessment: [current deficits]: Confusion, weakness/unsteady, tubing/cords ?? Assistance [level of assistance required for transfers and ambulation]: 1-2A with walker ?? Supervision [direct monitoring required during toileting and ADLs]: Hands on ?? Surveillance [continuous indirect monitoring]: Bed/chair alarm, purposeful rounding, environmental modification ?? Patient-specific fall prevention interventions for sensory deficits provided, if applicable: [X] Yes CPG GOAL OUTCOME EVALUATION: Goal: Individualization & Mutuality Outcome: Ongoing (Interventions Implemented as Appropriate) 08/05/181527 Individualization Patient Specific Preferences Does not like coffee Patient Specific Goals [place], discharge Patient Specific Interventions Explained plan of care with pt Goal: Fall Prevention-Safe Patient Handling Outcome: Ongoing (Interventions Implemented as Appropriate) 08/02/18205608/06/1875226/19 1440 Toribio Fall Risk History of Falling -- 25 -- Secondary Diagnosis -- 15 -- Ambulatory Aids -- 15 -- Intravenous Therapy/Heparin/Saline Lock -- 20 -- Gait/Transferring -- 10 -- Mental Status -- 15 -- Score -- 100 -- OTHER Toribio Fall Risk -- High -- Restraint Interventions Safety Promotion/Fall Prevention -- -- fall prevention program maintained;muscle strengthening facilitated;nonskid shoes/slippers when out of bed Positioning Body Position -- -- supine, head elevated Daily Care Interventions Self-Care Promotion independence encouraged -- -- Activity Activity Type -- -- activity adjusted per tolerance Activity Assistance Provided -- assistance, 1 person -- Assistive Device Utilized -- front-wheel walker -- Goal: Infection Control Outcome: Ongoing (Interventions Implemented as Appropriate) 08/06/183 08/06/18 1440 Safety Interventions Isolation Precautions -- standard precautions maintained Infection Prevention -- environmental surveillance performed Coping Strategies Supportive Measures active listening utilized;self-care encouraged;verbalization of feelings encouraged -- * Plan of Care - Gray Bach RN - 08/06/2018 2:42 AM EST Problem: Patient Care Overview Goal: Plan of Care Review Outcome: Ongoing (Interventions Implemented as Appropriate) 08/05/18 1528 08/05/181999 Coping/Psychosocial Plan Of Care Reviewed With -- patient Plan of Care Review Progress progress toward functional goals as expected -- OUTCOME EVALUATION NOTE: OUTCOME SUMMARY: Pt resting comfortably between the bed and the chair overnight. Pt initially voicing frustration about chair alarm but easily redirected/educted. Pt assisted to walk with ease later. Pt continues to be edematous dependently despite elevation attempts. Neuro checks unchanged throughout the night, pthad trouble answering after being awoken but able to get some answers correct. Pt so far otherwise without acute events or changes. PLAN MOVING FORWARD: Neuro checks, seizure precautions, prep for dc wednesday INDIVIDUALIZED FALL PREVENTION INTERVENTIONS: Patient-specific fall risk factors per assessment: [current deficits]: Impulsive, gen weakness, IV, Assistance [level of assistance required for transfers and ambulation]: SBA- 1a Supervision [direct monitoring required during toileting and ADLs]: Eyes on Surveillance [continuous indirect monitoring]: Masimo, environmental mods, bed/chair alarm Patient-specific fall prevention interventions for sensory deficits provided, if applicable: [X] Yes CPG GOAL OUTCOME EVALUATION: Goal: Individualization & Mutuality Outcome: Ongoing (Interventions Implemented as Appropriate) 07/30/18 0055 08/05/18 1528 Individualization Patient Specific Preferences -- Does not like coffee Patient Specific Goals -- [place], discharge Patient Specific Interventions -- Explained plan of care with pt Mutuality/Individual Preferences What Anxieties, Fears or Concerns Do You Have About Your Health or Care? I can't remember my brother's phone number -- What Questions Do You Have About Your Health or Care? How big is a kidney? -- What Information Would Help Us Give You More Personalized Care? none -- Goal: Fall Prevention-Safe Patient Handling Outcome: Ongoing (Interventions Implemented as Appropriate) 08/02/18205608/05/18199908/06/18 0100 Toribio Fall Risk History of Falling -- 25 -- Secondary Diagnosis -- 15 -- Ambulatory Aids -- 15 -- Intravenous Therapy/Heparin/Saline Lock -- 20 -- Gait/Transferring -- 10 -- Mental Status -- 15 -- Score -- 100 -- OTHER Toribio Fall Risk -- High -- Restraint Interventions Safety Promotion/Fall Prevention -- -- activity supervised;fall prevention program maintained;nonskid shoes/slippers when out of bed;safety round/check completed Positioning Body Position -- -- supine Daily Care Interventions Self-Care Promotion independence encouraged -- -- Activity Activity Type -- activity adjusted per tolerance -- Activity Assistance Provided -- assistance, 1 person -- Assistive Device Utilized -- front-wheel walker -- Goal: Infection Control Outcome: Ongoing (Interventions Implemented as Appropriate) 08/05/1883708/06/18 010 Safety Interventions Isolation Precautions -- standard precautions maintained Infection Prevention -- environmental surveillance performed Coping Strategies Supportive Measures active listening utilized;self-care encouraged;verbalization of feelings encouraged -- * Plan of Care - Marcia Ramírez RN - 08/05/2018 6:08 PM EST Problem: Patient Care Overview Goal: Plan of Care Review Outcome: Ongoing (Interventions Implemented as Appropriate) 08/05/18 1528 Coping/Psychosocial Plan Of Care Reviewed With patient Plan of Care Review Progress progress toward functional goals as expected OUTCOME EVALUATION NOTE: OUTCOME SUMMARY: Pt oriented to self consistently, occationally to place, time. Q4 neuro checks unchanged otherwise.Pt still impulsive, getting OOB frequently without ringing appropriately, pt educated on importanceof using his call daniels. VSS. Telemetry d/c'd. Seizure precautions maintained. Pt rested in between care. PLAN MOVING FORWARD: Monitor neuro status, discharge Wednesday INDIVIDUALIZED FALL PREVENTION INTERVENTIONS: Patient-specific fall risk factors per assessment: [current deficits]: Confusion, weakness/unsteady, tubing/cords Assistance [level of assistance required for transfers and ambulation]: 1-2A with walker Supervision [direct monitoring required during toileting and ADLs]: Hands on Surveillance [continuous indirect monitoring]: Bed/chair alarm, purposeful rounding, environmental modification Patient-specific fall prevention interventions for sensory deficits provided, if applicable: [X] Yes CPG GOAL OUTCOME EVALUATION: Goal: Individualization & Mutuality Outcome: Ongoing (Interventions Implemented as Appropriate) 08/05/18 1528 Individualization Patient Specific Preferences Does not like coffee Patient Specific Goals [place], discharge Patient Specific Interventions Explained plan of care with pt Goal: Fall Prevention-Safe Patient Handling Outcome: Ongoing (Interventions Implemented as Appropriate) 08/02/18205608/05/18 0838 08/05/18 1037 Toribio Fall Risk History of Falling -- 25 -- Secondary Diagnosis -- 15 -- Ambulatory Aids -- 15 -- Intravenous Therapy/Heparin/Saline Lock -- 20 -- Gait/Transferring -- 10 -- Mental Status -- 15 -- Score -- 100 -- OTHER Toribio Fall Risk -- High -- Restraint Interventions Safety Promotion/Fall Prevention -- -- -- Positioning Body Position -- -- -- Daily Care Interventions Self-Care Promotion independence encouraged -- -- Activity Activity Type -- -- activity adjusted per tolerance Activity Assistance Provided -- -- assistance, 1 person Assistive Device Utilized -- -- front-wheel walker 08/05/18 1225 Toribio Fall Risk History of Falling -- Secondary Diagnosis -- Ambulatory Aids -- Intravenous Therapy/Heparin/Saline Lock -- Gait/Transferring -- Mental Status -- Score -- OTHER Toribio Fall Risk -- Restraint Interventions Safety Promotion/Fall Prevention fall prevention program maintained;muscle strengthening facilitated;nonskid shoes/slippers when out of bed Positioning Body Position up in chair Daily Care Interventions Self-Care Promotion -- Activity Activity Type -- Activity Assistance Provided -- Assistive Device Utilized -- Goal: Infection Control Outcome: Ongoing (Interventions Implemented as Appropriate) 08/05/18 0838 08/05/18 1225 Safety Interventions Isolation Precautions -- standard precautions maintained Infection Prevention -- environmental surveillance performed Coping Strategies Supportive Measures active listening utilized;self-care encouraged;verbalization of feelings encouraged -- * Plan of Care - Rajeev Posadas, OT - 08/05/2018 9:33 AM EST Occupational Therapy Treatment Note Treatment Number OT: (P) 2 Pertinent History of Current Problem: (P) 57 y.o. 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 Also with recent SDH followed by NSnoted to have expanded some on repeat image done 08/01/18. Pt noted to have seizure 08/03/18. No significant 24 hour events. Precautions/Restrictions: (P) fall, seizures Precautions Comments: (P) Full code, AAT. Assessment: Pt seen for skilled OT interventions. ADL retraining and cognitive retraining. Pt scored 5.0 on ACL leather lacing inding pt exercises poor judgment with no symbolic thought to plan actions or anticipate potential mistakes. They may make hasty or impulsive decisions or make abrupt changes in their course of action. The determination of what is best may be made according to personal preferences or social standards. This suggests that pt would benefit from weekly checks for safety andwould do well w/ structure in his day, pt does appear to be able to live alone however pt is at a significantly increased risk for falls at this time and requires hands on assist x 2 people w/ repeated verbal cues to maintain safety during basic self care tasks and mobility. Pt will benefit from ongoing therapeutic interventions to achieve pt's and therapy goals. Please refer to associated flowsheet data listed below for treatment session details. Staff Recommendations: Encourage OOB activity w/ assist x 2 using walker and participation in all self care tasks. Anticipated Discharge Disposition: (P) inpatient rehabilitation facility Pager: [phone] Rajeev Posadas OT 08/05/2018 Occupational Therapy Rehabilitation Department 08/05/18 1200 Rehab Evaluation Document Type therapy note (daily note) Total Evaluation Minutes, Occupational Therapy 47 Patient Effort good Symptoms Noted During/After Treatment fatigue General Information Patient Profile Review yes Onset of Illness/Injury or Date of Surgery 07/29/18 Referring Physician Girish Patient/Family/Caregiver Comments/Observations I feel like a prisoner in this bed. General Observations of Patient Pt reclined in bed w/ call light in reach, bed alarm on, seizure pads up and tray table at bedside. Pertinent History of Current Problem 57 y.o. man with IgA nephropathy s/p renal transplant now withrecurrent end stage renal dysfunction and volume overload, pruritis, possible uremic encephalopathyand poorly controlled hypertension here for HD initiation. Also with recent SDH followed by NS noted to have expanded some on repeat image done 08/01/18. Pt noted to have seizure 08/03/18. No significant 24 hour events. Hearing Precautions/Limitations WFL Precautions/Restrictions fall;seizures Precautions Comments Full code, AAT. Limitations/Impairments safety/cognitive Treatment Number OT 2 Living Environment Patient population Adult Vital Signs O2 Device RA Cognitive Assessment/Intervention Additional Documentation Cognitive Assessment Interventions (Group) Cognitive Assessment Interventions Behavior/Mood Observations (Cognitive) WNL/WFL;behavior appropriate to situation;confused;distractible Orientation Status (Cognitive) oriented to;person;place;time;situation Attention (Cognitive) difficult dividing attention;needs cues to redirect;distractible Follows Commands/Answers Questions (Cognitive) able to follow single-step instructions;100% of the time Personal Safety (Cognitive) impulsive;decreased insight to deficits;decreased awareness, need for safety;decreased awareness, need for assist Personal Safety Interventions Bed alarm, call light Cognitive Assessment/Interventions Comment Pt scored 5.0 on ACL leather lacing inding pt exercises poor judgment with no symbolic thought to plan actions or anticipate potential mistakes. They may make hasty or impulsive decisions or make abrupt changes in their course of action. The determination of what is best may be made according to personal preferences or social standards. Pt would benefit from weekly checks for safety and would do well w/ structure in his day, pt does appear to be able to live alone. Pain Scale/Rating Pain Level (Pt did not rate) Bed Mobility Assessment/Treatment Impairments (Bed Mobility) balance impaired Scoot/Bridge [place] (Bed Mobility) contact guard assist Vkyjlw-vp-Osa [place] (Bed Mobility) contact guard assist Beb-yv-Gtsmpi [place] (Bed Mobility) contact guard assist Assistive Device (Bed Mobility) bed rails;other (see comments) (HOB elevated ) Comment (Bed Mobility) Pt impuslive moving to EOB requiring 1 v/c for self pacing. Transfer Assessment/Treatment [place]berry (Sit-Stand Transfers) 2 person assist required;contact guard assist [place] (Stand-Sit Transfers) 2 person assist required;contact guard assist [id number] Assistive Device (Transfers) rolling walker Impairments (Transfers) balance impaired;other (see comments) (Reduced awareness of need for safety. ) Comment (Transfers) Pt requires multiple verbal cues to stand EOB and not begin walking. Pt did begin walking w/o shoes on despite education proviided a few minutes before about need for shoes on. Gait Assessment/Treatment Assistive Device (Gait) rolling walker [place] (Gait) 2 person assist required;minimum assist (75% patient effort) Distance in Feet (Gait) 150ft Comment (Gait) Pt demonstrated increased balance during ambulation of longer distances today. Coping Verbalized Emotional State acceptance Observed Emotional State accepting Plan of Care Review Plan Of Care Reviewed With patient Progress progress towards functional goals is fair Cognition Goal Cognition Goal, Date Established 08/04/18 Cognition Goal, Time to Achieve 2 wks Cognition Goal, Activity Type Pt will participate in a formalized cognitive assessment in order to determine a baseline. Cognition Goal, [place]berry Level (ACL administered on 08/05/18.) Cognition Goal, Outcome Achieved goal met Grooming Goal Grooming Goal, Date Established 08/04/18 Grooming Goal, Time to Achieve 2 wks Grooming Goal, Activity Type Pt will complete grooming standing at sink w/ CGA initating safe placement of FWW. Grooming Goal, [place]berry Level 2 person assist required;minimum assist (75% patient effort);contact guard assist Grooming Goal, Position standing Grooming Goal, Outcome goal ongoing Toileting Goal Toileting Goal, Date Established 08/04/18 Toileting Goal, Time to Achieve 2 wks Toileting Goal, Activity Type Pt will complete toileting w/ SBA initating use of grab bar for safety. Toileting Goal, Outcome goal ongoing LB Dressing Goal LB Dressing Goal, Date Established 08/04/18 LB Dressing Goal, Time to Achieve 2 wks LB Dressing Goal, Activity Type Pt will complete LB dresisng w/ SBA in standing. LB Dressing Goal, [place] Level 2 person assist required;minimum assist (75% patient effort);verbal cues required LB Dressing Goal, Outcome goal ongoing Clinical Impression Criteria for Skilled Therapeutic Interventions Met yes;treatment indicated Rehab Potential good, to achieve stated therapy goals Therapy Frequency 2-4 times/wk Anticipated Discharge Disposition inpatient rehabilitation facility * Plan of Care - Patty Marrero, PT - 08/05/2018 9:30 AM EST Physical Therapy Treatment Treatment Number PT: 2 Pertinent History of Current Problem: 57 y.o. 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 Also with recent SDH followed by NS noted to have expanded some on repeat image done 08/01/18. Pt noted to have seizure 08/03/18. No significant 24 hour events. Precautions/Restrictions: fall, seizures Precautions Comments: Full code, AAT Assessment: Pt seen for physical therapy tx for cont POC. Pt demonstrated bed mobility with CGAx1 and cues for safety. Pt performed transfers with FWW and CGAx2 and ambulated around the unit with minassistx2 and FWW. Pt slightly impulsive yet redirectable. Pt balance slightly improved this session, yet pt still lacks safety awareness and requires max cues for safety. Pt would benefit from a rehab stay after d/c in order to maximize functional mobility and independence. Pt was left reclined in bed, OT at bedside, alarm on, call daniels and all necessities within reach. Please see the flow sheet below for patient details and mobility. Pt would benefit from ongoing physical therapy interventions. Staff Mobility Recommendations: Min assistx2 with FWW. Please encourage pt to ambulate in hallway 3x/day Anticipated Discharge Disposition: inpatient rehabilitation facility(can tolerate acute) Patty Marrero, PT Pager: [phone] Inpatient Physical Therapy 08/05/18 0902 Rehab Evaluation Document Type therapy note (daily note) Total Evaluation Minutes, Physical Therapy 25 (TE-Fx2) Patient Effort good Symptoms Noted During/After Treatment fatigue General Information Patient Profile Review yes Patient/Family/Caregiver Comments/Observations I want to get up and move. General Observations of Patient Pt initially reclined in bed, agreeable to participate. Pertinent History of Current Problem 57 y.o. man with IgA nephropathy s/p renal transplant now withrecurrent end stage renal dysfunction and volume overload, pruritis, possible uremic encephalopathyand poorly controlled hypertension here for HD initiation. Also with recent SDH followed by NS noted to have expanded some on repeat image done 08/01/18. Pt noted to have seizure 08/03/18. No significant 24 hour events. Precautions/Restrictions fall;seizures Precautions Comments Full code, AAT Limitations/Impairments safety/cognitive Treatment Number PT 2 Pain Scale/Rating Pain Level (pt had no c/o pain) Mobility Assessment/Training Additional Documentation Bed Mobility Assessment/Treatment (Group);Gait Assessment/Treatment (Group);Transfer Assessment/Treatment (Group) Bed Mobility Assessment/Treatment Assistive Device (Bed Mobility) bed rails (HOB elevated) Scoot/Bridge [place] (Bed Mobility) contact guard assist;verbal cues required Zshaai-zg-Hlo [place] (Bed Mobility) contact guard assist;verbal cues required Osc-wh-Otpoko [place] (Bed Mobility) contact guard assist;verbal cues required Impairments (Bed Mobility) balance impaired;strength decreased Comment (Bed Mobility) Pt impulsive yet redirectable come to EOB. Max cues for safety Transfer Assessment/Treatment Newberry (Sit-Stand Transfers) not appropriate to assess;contact guard assist;verbal cues required Newberry (Stand-Sit Transfers) 2 person assist required;contact guard assist;verbal cues required Wdi-Abopp-Yzm Assistive Device (Transfers) rolling walker Impairments (Transfers) balance impaired;strength decreased (reduced safety awareness) Comment (Transfers) Pt required frequent cueing for safety and hands on assistx2 for walker management and pt safety. Gait Assessment/Treatment Newberry (Gait) 2 person assist required;minimum assist (75% patient effort);verbal cues required Assistive Device (Gait) rolling walker Distance in Feet (Gait) 150 Gait Pattern Analysis swing-through gait Deviations (Gait) dez decreased;step length decreased;stride length decreased Safety Issues (Gait) balance decreased during turns;step length decreased Impairments (Gait) balance impaired;coordination impaired;motor control impaired;strength decreased Comment (Gait) Pt demonstrated improved dynamic balance requiring no standing rest breaks when ambulating in hallway. Motor Skills/Interventions Additional Documentation Balance Skills Training (Group) Balance Skills Training Sitting Balance: Static good balance Sitting Balance: Dynamic fair balance Iow-hb-Ycthe Balance fair balance Standing Balance: Static fair balance Standing Balance: Dynamic fair balance Plan of Care Review Plan Of Care Reviewed With patient Progress improving Physical Therapy Goal Types Physical Therapy Goal Types Bed Mobility Goal (Group);Gait Training Goal (Group);Transfer Training Goal (Group) Bed Mobility Goal Bed Mobility Goal, Date Established 08/04/18 Bed Mobility Goal, Time to Achieve 30 days Bed Mobility Goal, Activity Type supine to sit/sit to supine Bed Mobility Goal, Newberry Level independent Bed Mobility Goal, Date Goal Reviewed 08/05/18 Bed Mobility Goal, Outcome Achieved goal ongoing Gait Training Goal Gait Training Goal, Date Established 08/04/18 Gait Training Goal, Time to Achieve 30 days Gait Training Goal, Newberry Level supervision required Gait Training Goal, Assist Device walker, rolling (or LRAD) Gait Training Goal, Distance to Achieve 150 Gait Training Goal, Additional Goal Pt to ascend/descend stairs asneeded for home set up with use of LRAD in order to enter and exithome Gait Training Goal, Date Goal Reviewed 08/05/18 Gait Training Goal, Outcome goal ongoing Transfer Training Goal Transfer Training Goal, Date Established 08/04/18 Transfer Training Goal, Time to Achieve 30 days Transfer Training Goal, Activity Type psz-wx-txxql/phlmx-pr-fig;qom-xl-aaymp/lfimb-ax-vsv Transfer Train Goal, Newberry Level supervision required Transfer Training Goal, Assist Device walker, rolling (or LRAD) Transfer Train Goal, Date Goal Reviewed 08/05/18 Transfer Training Goal, Outcome goal ongoing Clinical Impression Therapy Frequency 2-4 times/wk Anticipated Equipment Needs at Discharge (TBD) Anticipated Discharge Disposition inpatient rehabilitation facility (can tolerate acute) General Interventions Additional Documentation Planned Therapy Interventions (Group) Planned Therapy Interventions balance training;bed mobility training;gait training;home exercise program;patient/family education;ROM (range of motion);stair training;strengthening;stretching;transfer training * Plan of Care - Laina Herrera RN - 08/05/2018 6:17 AM EST Problem: Patient Care Overview Goal: Plan of Care Review Outcome: Ongoing (Interventions Implemented as Appropriate) 08/05/18 0608 Coping/Psychosocial Plan Of Care Reviewed With patient Plan of Care Review Progress progress toward functional goals as expected OUTCOME EVALUATION NOTE: OUTCOME SUMMARY: Pt A/O x3 disoriented to situation. Scheduled medications given. Pt denied pain, SOB, Cp, numbness/tingling. Neuro checks Q4 maintained. Pt continues to have +4 LUE Pt using urinal overnight with assistance Pt sleeping between care. PLAN MOVING FORWARD: Neuro checks Q4, encourage mobility, prepare for d/c when appropriate INDIVIDUALIZED FALL PREVENTION INTERVENTIONS: Patient-specific fall risk factors per assessment: [current deficits]: High fall risk, seizure precautions, can be impulsive, generalized weakness Assistance [level of assistance required for transfers and ambulation]: 1-2 assist with front-wheelwalker Supervision [direct monitoring required during toileting and ADLs]: eyes-on Surveillance [continuous indirect monitoring]: Hourly rounding, bed alarm, all 4 side rails (seizure precautions) Patient-specific fall prevention interventions for sensory deficits provided, if applicable: [X] Yes CPG GOAL OUTCOME EVALUATION: * Plan of Care - Dona Hickey RN - 08/04/2018 4:56 PM EST Problem: Patient Care Overview Goal: Plan of Care Review Outcome: Ongoing (Interventions Implemented as Appropriate) 08/04/18 1321 08/04/18 1652 Coping/Psychosocial Plan Of Care Reviewed With patient -- Plan of Care Review Progress -- no change OUTCOME EVALUATION NOTE: OUTCOME SUMMARY: Pt is alert oriented x4 this evening but historically disoriented to situation. VSS. Physical assessment as documented. Able to voice needs and concerns. PT dionicio to HD this morning with 3L removed. Noted R eye this morning, with improvement throughout the day. Worked with PT today and ambulated around the unit. Will continue to monitor. PLAN MOVING FORWARD: Monitor VS/Labs. Monitor I &O Monitor neuro status Assess skin Encourage ambulation INDIVIDUALIZED FALL PREVENTION INTERVENTIONS: Patient-specific fall risk factors per assessment: [current deficits]: IV, masimo, weakness, diagnosis, impulsive, seizure precautions. Assistance [level of assistance required for transfers and ambulation]: 2-assist with walker Supervision [direct monitoring required during toileting and ADLs]: Hands on Surveillance [continuous indirect monitoring]: Bed alarm, hourly rounding, tele Patient-specific fall prevention interventions for sensory deficits provided, if applicable: [X] Yes, glasses at bedside CPG GOAL OUTCOME EVALUATION: * Plan of Care - Rajeev Posadas OT - 08/04/2018 1:21 PM EST Occupational Therapy Evaluation Pertinent History of Current Problem: (P) 57 y.o. 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 Also with recent SDH followed by NSnoted to have expanded some on repeat image done 08/01/18. Pt noted to have seizure 08/03/18. Precautions/Restrictions: (P) fall, seizures Precautions Comments: (P) AAT, full code, impulsive Assessment: Pt has been seen for occupational therapy evaluation, please refer to associated flowsheet data listed below for details. Christy Ambrose presents with the following performance skill deficits and client factors: reduced balance, reduced safety awareness, reduced global cognition, reduced mobility, increased need for supervision for all mobility and ADLs. These performance deficits have led to activity limitations and participation restrictions in the following areas of occupation: dressing, bathing, grooming, toileting, self-feeding, mobility, transferring, rest/sleep, home management, roles/routines, education, work, leisure, community mobility, communication, and social participation. Pt is not at baseline w/ ADLs, ambulation, cognition or safety. Pt required moderate assist x 2 using walker and extensive verbal cues to maintain safety. Pt was able to sit EOB and don shoes however stood up and had LOB backwards. Pt would benefit from further inpatient OT interventions to address performance deficits and maximize participation and independence with occupations of daily living. Staff Recommendations: Encourage OOB activity w/ hands on assist x 2 using walker and participationin all self care tasks. Anticipated Discharge Disposition: (P) inpatient rehabilitation facility Pager:[phone] Rajeev Posadas OT 08/04/2018 Occupational Therapy Rehabilitation Department 2017 OT Evaluation Code Rationale: ?? Diagnosis & Pertinent Co-Morbidities affecting Plan of Care: see PMHx ?? Occupational Profile & Client History: Brief Expanded Extensive x ?? Assessment of Occupational Performance: 1-3 performance deficits 3-5 performance deficits 5 + performance deficits x ?? Clinical Decision Making: Low Moderate High x Clinical decision making of high complexity using standardized patient assessment instrument and measurable assessment of functional outcome. 08/04/18 1321 Rehab Evaluation Document Type evaluation Total Evaluation Minutes, Occupational Therapy 29 (High + SCHM ) Patient Effort good Symptoms Noted During/After Treatment fatigue General Information Patient Profile Review yes Onset of Illness/Injury or Date of Surgery 07/29/18 Referring Physician Girish Patient/Family/Caregiver Comments/Observations I do feel a little unsteady. General Observations of Patient Pt initially reclined in bed, agreeable to participate. Pertinent History of Current Problem 57 y.o. man with IgA nephropathy s/p renal transplant now withrecurrent end stage renal dysfunction and volume overload, pruritis, possible uremic encephalopathyand poorly controlled hypertension here for HD initiation. Also with recent SDH followed by NS noted to have expanded some on repeat image done 08/01/18. Pt noted to have seizure 08/03/18. Hearing Precautions/Limitations WFL Precautions/Restrictions fall;seizures Precautions Comments AAT, full code, impulsive Limitations/Impairments safety/cognitive Treatment Number OT 1 Living Environment Patient population Adult Living Environment Living Environment Comment Pt is poor historian, pt first reported living in [place], then stated he lived in an apartment in [facility]. Home set up unclear. Pt stated he has a walk in shower w/ no seat or grab bar, standard toilet. Functional Level Prior Prior Functional Level Comment Pt reports being I w/ ADLs and mobility using no AD. Self-Care Dominant Hand right Vision Assessment/Intervention Additional Documentation Vision Assessment/Intervention (Group) Vision Assessment/Intervention Visual Impairment/Limitations WNL Cognitive Assessment/Intervention Additional Documentation Cognitive Assessment Interventions (Group) Cognitive Assessment Interventions Behavior/Mood Observations (Cognitive) WNL/WFL;confused;impulsive;other (see comments) Orientation Status (Cognitive) oriented to;person;disoriented to;place;time;situation Attention (Cognitive) difficult dividing attention;needs redirection Follows Commands/Answers Questions (Cognitive) able to follow single-step instructions;100% of the time Personal Safety (Cognitive) decreased awareness, need for assist;decreased awareness, need for safety;impulsive;unaware of functional deficits Pain Scale/Rating Pain Assessment Scale (Pt did not verbalize pain. ) ROM (Range of Motion) Additional Documentation General Assessment (Group) General Range of Motion no range of motion deficits identified General Range of Motion Detail Grossly WFL. MMT (Manual Muscle Testing) Additional Documentation General Assessment (Group) General Manual Muscle Testing Assessment Detail Grossly WFL General Assessment General Manual Muscle Testing Assessment no strength deficits identified Bed Mobility Assessment/Treatment Impairments (Bed Mobility) balance impaired;coordination impaired;strength decreased Scoot/Bridge Newberry (Bed Mobility) contact guard assist;verbal cues required Vsizri-na-Nzf Newberry (Bed Mobility) contact guard assist Xmv-ty-Ckbdpd Newberry (Bed Mobility) contact guard assist Assistive Device (Bed Mobility) bed rails (HOB elevated) Comment (Bed Mobility) Pt came to EOB with cues and CGA for safety due to impulsivity. Pt able to sit EOB unsupported. Transfer Assessment/Treatment Newberry (Sit-Stand Transfers) 2 person assist required;minimum assist (75% patient effort);verbal cues required Newberry (Stand-Sit Transfers) 2 person assist required;minimum assist (75% patient effort);verbal cues required;moderate assist (50% patient effort) Kyy-Lejmy-Tmi Assistive Device (Transfers) rolling walker Impairments (Transfers) balance impaired;coordination impaired;strength decreased;motor control impaired Comment (Transfers) Pt attempted sit<>stand with initial posterior LOB corrected by therapist. Max cues for safety and sequencing. Gait Assessment/Treatment Impairments (Gait) balance impaired;coordination impaired;motor control impaired;strength decreased Assistive Device (Gait) rolling walker Deviations (Gait) dez decreased;step length decreased;stride length decreased Gait Pattern Analysis swing-through gait Newberry (Gait) moderate assist (50% patient effort);2 person assist required;verbal cues required Distance in Feet (Gait) 150 Safety Issues (Gait) balance decreased during turns;step length decreased Comment (Gait) Pt ambualated around the unit with several standing rest breaks. Max cues for safetyand to slow down. Pt required assist for FWW management and cues to keep walker close Coping Verbalized Emotional State acceptance Observed Emotional State accepting;calm Plan of Care Review Plan Of Care Reviewed With patient Progress progress towards functional goals is fair Occupational Therapy Goal Types Occupational Therapy Goal Types LB Dressing Goal (Group);Cognition Goal (Group);Toileting Goal (Group);Grooming Goal (Group) Cognition Goal Cognition Goal, Date Established 08/04/18 Cognition Goal, Time to Achieve 2 wks Cognition Goal, Activity Type Pt will participate in a formalized cognitive assessment in order to determine a baseline. Grooming Goal Grooming Goal, Date Established 08/04/18 Grooming Goal, Time to Achieve 2 wks Grooming Goal, Activity Type Pt will complete grooming standing at sink w/ CGA initating safe placement of FWW. Toileting Goal Toileting Goal, Date Established 08/04/18 Toileting Goal, Time to Achieve 2 wks Toileting Goal, Activity Type Pt will complete toileting w/ SBA initating use of grab bar for safety. LB Dressing Goal LB Dressing Goal, Date Established 08/04/18 LB Dressing Goal, Time to Achieve 2 wks LB Dressing Goal, Activity Type Pt will complete LB dresisng w/ SBA in standing. Clinical Impression Criteria for Skilled Therapeutic Interventions Met yes;treatment indicated Rehab Potential good, to achieve stated therapy goals Therapy Frequency 2-4 times/wk Anticipated Discharge Disposition inpatient rehabilitation facility General Therapy Interventions Additional Documentation Planned Therapy Interventions (Group) Planned Therapy Interventions ADL retraining;IADL retraining;balance training;strengthening;transfer training * Plan of Care - Patty Marrero, PT - 08/04/2018 1:20 PM EST Physical Therapy Evaluation Pertinent History of Current Problem: 57 y.o. 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 Also with recent SDH followed by NS noted to have expanded some on repeat image done 08/01/18. Pt noted to have seizure 08/03/18. Precautions/Restrictions: fall, seizures Precautions Comments: AAT, full code, impulsive Assessment: Pt seen for physical therapy evaluation. Pt presents with the following impairments/limitations: aerobic capacity/endurance;arousal, attention, and cognition;ergonomics and body mechanics;gait, locomotion, and balance;integumentary integrity;motor function;muscle performance;neuromotor d evelopment and sensory integration;posture;ROM (range of motion). Pt demonstrated bed mobility withCGAx1 and cues for safety. Pt performed sit<>stand with FWW and min assistx2 with posterior LOB corrected by therapists. Pt ambulated around the unit with mod assistx2 and max cues for safety and assist to manage FWW. Pt slightly impulsive yet redirectable. Pt is below his baseline mobility and would benefit greatly from a rehab stay after d/c in order to maximize functional mobility and independence. Pt was left reclined in bed, alarm on, call daniels and all necessities within reach. Please see associated flow sheet data below for objective information regarding today's session. Staff Mobility Recommendations: Min/mod assistx2 with FWW. Please encourage pt to mobilize with staff 3x/day Anticipated Discharge Disposition: inpatient rehabilitation facility Patty Marrero, PT Pager: [phone] Inpatient Physical Therapy 2017 PT Evaluation Code Rationale: ?? Diagnosis & Pertinent Co-Morbidities, personal factors, and present illness affecting Plan of Care: Patient Active Problem List Diagnosis Code ??? Epilepsy G40.909 ??? Gout M10.9 ??? Hypertension I10 ??? Left leg DVT I82.402 ??? IgA nephropathy N02.8 ??? BCC (basal cell carcinoma of skin) C44.91 ??? Acne rosacea L71.9 ??? Rosacea L71.9 ??? Anticoagulated on Coumadin Z51.81, Z79.01 ??? Atopic rhinitis J30.9 ??? Injury of head S09.90XA ??? Non-neoplastic nevus I78.1 ??? Colon polyp K63.5 ??? Varicose veins of lower extremities I83.93 ??? Squamous cell carcinoma of skin of other parts of face C44.329 ??? Encounter for long-term (current) use of other medications Z79.89 ??? Aftercare following organ transplant Z48.298 ??? CKD (chronic kidney disease) stage 4, GFR 15-29 ml/min N18.4 ??? 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 [...] acidosis) N25.89 ??? Acute renal failure N17.9 Additional personal factors or co-morbidities that impact plan: ?? Total # of Factors: 0 1-2 3+ X ?? Examination of body system impairments, functional limitations and behaviors, and/or participation restrictions. Addressing 1-2 elements Addressing 3 + elements Addressing 4 + elements X ?? Clinical presentation: See assessment above. Stable/Uncomplicated Evolving/Fluctuating Symptoms Unstable/Unpredictable X ?? Clinical decision making of high complexity based on pt's functional performance as outlined in this evaluation. 08/04/18 1320 Rehab Evaluation Document Type evaluation Total Evaluation Minutes, Physical Therapy 29 (high, GTx1) Patient Effort good Symptoms Noted During/After Treatment fatigue General Information Patient Profile Review yes Patient/Family/Caregiver Comments/Observations I do feel a little unsteady. General Observations of Patient Pt initially reclined in bed, agreeable to participate. Pertinent History of Current Problem 57 y.o. man with IgA nephropathy s/p renal transplant now withrecurrent end stage renal dysfunction and volume overload, pruritis, possible uremic encephalopathyand poorly controlled hypertension here for HD initiation. Also with recent SDH followed by NS noted to have expanded some on repeat image done 08/01/18. Pt noted to have seizure 08/03/18. Hearing Precautions/Limitations WFL Precautions/Restrictions fall;seizures Precautions Comments AAT, full code, impulsive Limitations/Impairments safety/cognitive Treatment Number PT 1 Living Environment Patient population Adult Living Environment Living Environment Comment Pt is poor historian, pt first reported living in [place], then stated he lived in an apartment in [facility]. Home set up unclear Functional Level Prior Prior Functional Level Comment Pt reports that he was fairly independent prior, did not use any AD Pain Scale/Rating Pain Level (pt had no c/o pain) ROM (Range of Motion) Additional Documentation General Assessment (Group) General Range of Motion Detail Grossly WFL MMT (Manual Muscle Testing) Additional Documentation General Assessment (Group) General Manual Muscle Testing Assessment Detail Grossly WFL, deconditioned Mobility Assessment/Training Additional Documentation Bed Mobility Assessment/Treatment (Group);Gait Assessment/Treatment (Group);Transfer Assessment/Treatment (Group) Bed Mobility Assessment/Treatment Assistive Device (Bed Mobility) bed rails (HOB elevated) Scoot/Bridge Newberry (Bed Mobility) contact guard assist;verbal cues required Kyhkir-ec-Jjo Newberry (Bed Mobility) contact guard assist Ysf-rr-Ispvnq Newberry (Bed Mobility) contact guard assist Impairments (Bed Mobility) balance impaired;coordination impaired;strength decreased Comment (Bed Mobility) Pt came to EOB with cues and CGA for safety due to impulsivity. Pt able to sit EOB unsupported. Transfer Assessment/Treatment Newberry (Sit-Stand Transfers) 2 person assist required;minimum assist (75% patient effort);verbal cues required Newberry (Stand-Sit Transfers) 2 person assist required;minimum assist (75% patient effort);verbal cues required;moderate assist (50% patient effort) Vlg-Lsgwu-Zfo Assistive Device (Transfers) rolling walker Impairments (Transfers) balance impaired;coordination impaired;strength decreased;motor control impaired Comment (Transfers) Pt attempted sit<>stand with initial posterior LOB corrected by therapist. Max cues for safety and sequencing. Gait Assessment/Treatment Newberry (Gait) moderate assist (50% patient effort);2 person assist required;verbal cues required Assistive Device (Gait) rolling walker Distance in Feet (Gait) 150 Gait Pattern Analysis swing-through gait Deviations (Gait) dez decreased;step length decreased;stride length decreased (scissoring ataxic gait ) Safety Issues (Gait) balance decreased during turns;step length decreased Impairments (Gait) balance impaired;coordination impaired;motor control impaired;strength decreased Comment (Gait) Pt ambualated around the unit with several standing rest breaks. Max cues for safetyand to slow down. Pt required assist for FWW management and cues to keep walker close Motor Skills/Interventions Additional Documentation Balance Skills Training (Group) Balance Skills Training Sitting Balance: Static good balance Sitting Balance: Dynamic fair balance Fop-rf-Khsgn Balance poor balance Standing Balance: Static fair balance Standing Balance: Dynamic poor balance Plan of Care Review Plan Of Care Reviewed With patient Progress progress towards functional goals is fair Physical Therapy Goal Types Physical Therapy Goal Types Bed Mobility Goal (Group);Gait Training Goal (Group);Transfer Training Goal (Group) Bed Mobility Goal Bed Mobility Goal, Date Established 08/04/18 Bed Mobility Goal, Time to Achieve 30 days Bed Mobility Goal, Activity Type supine to sit/sit to supine Bed Mobility Goal, Newberry Level independent Gait Training Goal Gait Training Goal, Date Established 08/04/18 Gait Training Goal, Time to Achieve 30 days Gait Training Goal, Newberry Level supervision required Gait Training Goal, Assist Device walker, rolling (or LRAD) Gait Training Goal, Distance to Achieve 150 Gait Training Goal, Additional Goal Pt to ascend/descend stairs asneeded for home set up with use of LRAD in order to enter and exithome Transfer Training Goal Transfer Training Goal, Date Established 08/04/18 Transfer Training Goal, Time to Achieve 30 days Transfer Training Goal, Activity Type yum-qe-bmvby/rzgcz-wl-qyb;njl-lz-ihuyz/xisto-uo-leh Transfer Train Goal, Newberry Level supervision required Transfer Training Goal, Assist Device walker, rolling (or LRAD) Clinical Impression Impairments Found (describe specific impairments) aerobic capacity/endurance;arousal, attention, and cognition;ergonomics and body mechanics;gait, locomotion, and balance;integumentary integrity;motor function;muscle performance;neuromotor development and sensory integration;posture;ROM (range of motion) Therapy Frequency 2-4 times/wk Anticipated Equipment Needs at Discharge (TBD) Anticipated Discharge Disposition inpatient rehabilitation facility General Interventions Additional Documentation Planned Therapy Interventions (Group) Planned Therapy Interventions balance training;bed mobility training;gait training;home exercise program;patient/family education;ROM (range of motion);stair training;strengthening;stretching;transfer training * Plan of Care - Maria E Meehan RN - 08/04/2018 3:11 AM EST Problem: Patient Care Overview Goal: Plan of Care Review Outcome: Ongoing (Interventions Implemented as Appropriate) 08/03/18 1533 08/03/[id number] Coping/Psychosocial Plan Of Care Reviewed With -- patient Plan of Care Review Progress no change -- OUTCOME EVALUATION NOTE: OUTCOME SUMMARY: Pt alert and oriented to self & place, situation intermittently, disoriented to time. No c/o pain this shift. Pt received IV Keppra at start of shift for tonic/clonic seizure at approx 1800 during day shift. Seizure precautions initiated and residual R sided weakness continues to improve. Neurochecks as documented - pt following commands and is able to make needs known. Pt sleeping between care. VSS on RA. Pt remains free from falls, bed in low position, padded side rails. Call daniels remains in reach and pt encouraged to make needs known. Will continue to monitor and report any changes. PLAN MOVING FORWARD: Monitor for seizure activity, Neuro checks, HD INDIVIDUALIZED FALL PREVENTION INTERVENTIONS: Patient-specific fall risk factors per assessment: [current deficits]: Generalized Weakness, IV sites, Masimo, Confusion, Impulsive. Assistance [level of assistance required for transfers and ambulation]: 2 Assist Supervision [direct monitoring required during toileting and ADLs]: Hands on Surveillance [continuous indirect monitoring]: Environmental Surveillance, Purposeful Rounding, Bedside Report, Bed near unit station. Patient-specific fall prevention interventions for sensory deficits provided, if applicable: [X] Yes CPG GOAL OUTCOME EVALUATION: * Consult Note - John Rose MD - 08/03/2018 7:56 PM EST Neurology Admission History and Physical Patient name: Christy Ambrose Date of : 1960 PCP: Carroll Fuentes DO Onset of symptoms (if witnessed) or time of symptom discovery: unclear, sometime in early evening Last known well: 530 PM Stroke Alert Activated: 614 PM Neurology at Bedside: 617 PM CC: stroke alert HPI: Christy Ambrose is a 57 y.o. w/ 57 y.o. 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 Minutes before my arrival patient had a generalized seizure. After which she was noted that he had significant right facial weakness, right-sided weakness and was unable to speak. He was unable to lift his arm or leg off the bed. By the time I arrived there he was mildly weak on the right side and was alert. He had some ongoing issues with his language- specifically, he had global aphasia. He is followed by neurosurgery. He was seen by them today for routine follow-up. He had a repeat head CT today that that showed unchanged acute on chronic subdural hemorrhage along the left cerebral convexity. Patient is not taking any antithrombotics. He is currently on Keppra 500 mg twice daily for seizure prophylaxis. Current Medications: Scheduled Meds: ??? calcium carbonate 1,000 mg Oral TID WC ??? hydrALAZINE 100 mg Oral TID ??? metoprolol succinate 200 mg Oral Nightly ??? losartan 100 mg Oral Daily ??? allopurinol 100 mg Oral Daily ??? dilTIAZem 120 mg Oral Daily ??? levothyroxine 100 mcg Oral QAM ??? pantoprazole 20 mg Oral BID ??? sodium chloride 0.9 % 5 mL Intravenous BID ??? tacrolimus 1-1.5 mg Oral BID ??? levETIRAcetam 500 mg Oral Daily And ??? levETIRAcetam 250 mg Oral Nightly ??? mycophenolate 500 mg Oral BID ??? amLODIPine 10 mg Oral Daily Continuous Infusions: PRN Meds:.heparin (porcine), labetalol, sodium chloride 0.9 %, lidocaine, prochlorperazine, acetaminophen, senna-docusate Past Medical & Surgical History: Past Medical History: Diagnosis Date ??? [...] Tunneled Line 07/30/[address] [facility] INTERVENTIONL RAD ??? KIDNEY TRANSPLANT KIDNEY TRANSPLANT / RECIPIENT/LT Procedure Date: 11/26/2002 ? ? PRO DEBRIDEMENT SUBCUTANEOUS TISSUE 20 SQCM/< Left 02/20/2016 DEBRIDEMENT SKIN AND SUBCU, HEAD/NECK performed by Miguel Angel Moreno MD at [facility] MAIN OR ??? PRO DECOMPRESS FOREARM, BRACH ART EXPLOR Left 04/06/2018 FASCIOTOMY, FOREARM, WITH BRACHIAL ARTERY EXPLORATION (WRVU 8.41) performed by Lida Peter MDat [facility] MAIN OR ??? PRO DIRECT REPAIR RUPTURED ANEURYSM, AXILLO-BRACHIAL ARM INCIS Left 04/06/2018 @REPAIR, RUPTURED AXILLARY OR BRACHIAL ARTERY ANEURYSM BY ARM INCISION (WRVU *) performed by Lida Peter MD at [facility] MAIN OR ??? PRO EXC PAROTD, TOTAL, UNILAT RAD NECK Left 02/05/2016 @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, TOTAL, WITH UNILATERAL RADICAL NECK DISSECTION performed by Miguel Angel Moreno MD at [facility] OR ??? PRO EXC SKIN MALIG 3.1-4CM FACE, FACIAL Left 02/05/2016 EXC MALIGNANT LESION, 3.1 TO 4.0CM, FACE performed by Miguel Angel Moreno MD at [facility] MAIN OR ? ? PRO EXC SKIN MALIG >4CM TRUNK, ARM, LEG 04/19/2012 EXC MALIGNANT LESION, MICHAEL > 4.0CM, TRUNK performed by SABRINA SANCHEZ at [facility] OR ??? PRO LAP, RADICAL NEPHRECTOMY Left 05/31/2017 @LAPAROSCOPY, RADICAL NEPHRECTOMY (WRVU 25.06) performed by Jax Mills MD at [facility] OR ??? PRO LIGATN ANGIOACCESS AV FISTULA Left 04/19/2018 LIGATION OR BANDING OF HEMODIALYSIS FISTULA OR GRAFT UPPER EXTREMITY (WRVU 6.25) performed by Odalis Elias MD at [facility] MAIN OR ??? PRO NEGATIVE PRESSURE WOUND THERAPY, LESS THAN OR EQUAL TO 50 SQCM Left 04/19/2018 DRESSING CHANGE (VAC ASSISTED) UP TO 50SQ.CM (WRVU 0.55) performed by Odalis Elias MD [facility] OR ??? PRO REBL VES GRAFT, UP EXTREM Left 04/06/2018 REPAIR BLOOD VESSEL WITH GRAFT OTHER THAN VEIN, UPPER EXTREMITY (WRVU 15.83) performed by Lida Peter MD at [facility] MAIN OR ??? PRO RELIEVE PRESSURE ON NERVE(S) Left 04/06/2018 (MSURG) CARPAL TUNNEL (WRVU 4.82) performed by Silviano Sparks MD at [facility] MAIN OR ??? PRO REPAIR INTERMEDIATE S/A/T/E 2.6-7.5 CM 04/19/2012 REPAIR INTERMEDIATE WOUND, (NO HANDS OR FEET) 2.6 TO 7.5CM, UPPER EXTREMITY performed by SABRINA SANCHEZ at [facility] MAIN OR ? ? PRO REPAIR INTERMEDIATE S/A/T/E > 30.0 CM Left 04/14/2018 REPAIR INTERMEDIATE WOUND, (NO HANDS OR FEET) >30.0CM, UPPER EXTREMITY (WRVU 5) performed by Yimi Easton MD at [facility] MAIN OR ??? PRO REVISE MEDIAN N/CARPAL TUNNEL SURG Left 04/06/2018 MEDIAN NERVE DECOMPRESSION (CARPAL TUNNEL RELEASE) (WRVU 4.97) performed by Lida Peter MD [facility] MAIN OR ? ? PRO SPLIT GRFT TRUNK, ARM, LEG <100SQCM Left 04/26/2018 SPLIT THICK SKIN GRAFT,100 SQ CM OR LESS, ARMS (WRVU 9.9) performed by Silviano Sparks MD at [facility] MAIN OR ? ? PRO SPLIT GRFT, HEAD, FAC, HAND, FEET <100SQCM N/A 02/20/2016 SPLIT THICKNESS SKIN SPLIT GRAFT,100SQ CM OR LESS, NECK performed by Miguel Angel Moreno MD at [facility] MAIN OR ??? PRO SPLIT GRFT, TRUNK, ARM, LEG EA 100SQCM N/A 04/26/2018 EA.ADDITIONAL 100SQ.CM STSG (WRVU 1.72) performed by Silviano Sparks MD at [facility] MAIN OR ??? PRO UPPER GI ENDOSCOPY, BIOPSY N/A 05/13/2017 EGD WITH BIOPSY (WRVU 2.49) performed by Aditya Barrera MD at [facility] ENDOSCOPY ??? PRO VASCULAR SURGERY PROCEDURE UNLIST Left 11/20/2015 LIGATION\REPAIR AV FISTULA performed by Camilo Ireland MD at [facility] MAIN OR ??? PRO VASCULAR SURGERY PROCEDURE UNLIST Left 11/20/2015 EXCISION VEIN FROM HAND performed by Camilo Ireland MD at [facility] MAIN OR ??? US RENAL TRANSPLANT BIOPSY 12/31/2010 ??? US RENAL TRANSPLANT RIGHT Right 06/04/2018 US Renal Transplant Right 06/04/2018 [facility] RAD ULTRASOUND Home Medications: No current facility-administered medications on file prior to encounter. Current Outpatient Medications on File Prior to Encounter Medication Sig Dispense Refill ??? sodium bicarbonate 650 mg Tablet Take 1 tablet by mouth 3 times daily. 90 tablet 11 ??? losartan (COZAAR) 100 mg Tablet Take 2 tablets by mouth every morning. (Patient taking differently: Take 50 mg by mouth every morning. ) 60 tablet 11 ??? hydrALAZINE (APRESOLINE) 25 mg Tablet Take 5 tablets by mouth 3 times daily. 450 tablet 11 ??? furosemide (LASIX) 40 mg Tablet Take 1 tablet by mouth 3 times daily. 90 tablet 11 ??? calciTRIol (ROCALTROL) 0.5 mcg Capsule Take 1 capsule by mouth daily. 30 capsule 11 ??? allopurinol (ZYLOPRIM) 100 mg Tablet Take 1 tablet by mouth daily. 30 tablet 11 ??? dilTIAZem (CARTIA XT) 120 mg Capsule, Sust. Release 24 hr Take 1 capsule by mouth daily. 90 capsule 3 ??? calcium carbonate 648 mg calcium Tablet Take 1 tablet by mouth 3 times daily. Take on empty stomach. 90 tablet 11 ??? acetaminophen (TYLENOL) 500 mg Tablet Take 2 tablets by mouth every 6 hours. 30 tablet 1 ??? levETIRAcetam (KEPPRA) 500 mg Tablet Take 500 mg by mouth 2 times daily. Take 500 mg every morning and 250 mg every morning. ??? amLODIPine (NORVASC) 2.5 mg Tablet Take 2.5 mg by mouth daily. ??? tacrolimus (PROGRAF) 1 mg Capsule Take 1 capsule by mouth nightly. ??? tacrolimus (PROGRAF) 0.5 mg Capsule Take 3 capsules by mouth daily. ??? metoprolol tartrate (LOPRESSOR) 50 mg Tablet Take 1 tablet by mouth 3 times daily. (Patient taking differently: Take 25 mg by mouth 3 times daily. ) ??? pantoprazole (PROTONIX) 20 mg Tablet, Delayed Release (E.C.) Take 1 tablet by mouth 2 times daily. 180 tablet 3 ??? mycophenolate (CELLCEPT) 250 mg Capsule Take 1 capsule by mouth 2 times daily. Kidney Transplant Z94.0. Transplant Date; 11-26-02 180 capsule 11 ??? multivitamin Capsule Take 1 capsule by mouth daily. ??? levothyroxine (SYNTHROID) 100 mcg Tablet Take 100 mcg by mouth daily. Allergy: Allergies Allergen Reactions ??? Benazepril Hcl ??? Codeine Other (See Comments) Patient does not know reaction ??? Hydrochlorothiazide ??? Pollen Extracts Sneezing/runny nose Family History: Family [...] Not on file Occupational History ??? 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 Smoking status: Former Smoker Packs/day: 0.25 Years: 1.50 Pack years: 0.37 Types: Cigarettes Last attempt to quit: 12/03/2000 Years since quittin.6 ??? Smokeless tobacco: Former User Quit date: 04/14/2001 Substance and Sexual Activity ??? Alcohol use: No ??? Drug use: No Types: Marijuana Comment: havent in /1995 ??? Sexual activity: Not on file Comment: Deferred Other Topics Concern ??? Not on file Social History Narrative ??? Not on file Review of systems: Constitutional: No fevers or chills Eyes: No vision changes, no diplopia, no blurry vision ENT: No rhinorrhea or pharyngitis, no meningismus CV: No chest pain or palpitations Resp: No cough, no shortness of breath GI: No nausea, vomiting, diarrhea or constipation : No dysuria, no incontinence Heme: No bleeding or bruising Endo: No polyuria or cold intolerance Neuro: See HPI Psych: No depression, normal sleep [x] Review of systems otherwise negative Physical Exam: Vitals: Temp: [36.3 ??C (97.3 ??F)-36.9 ??C (98.4 ??F)] Heart Rate: [56-74] Resp: [14-22] BP: (137-167)/(74-102) SpO2: [91 %-96 %] Heart Rate from SPO2: [53 bpm-73 bpm] Gen: Patient of apparent stated age, well nourished, well developed, awake, alert, NAD Neck: Supple, no meningismus, no carotid bruit, no occipital tenderness CV: + S1, S2, RRR, no murmur Resp: CTA B/L Abd: +normoactive bowel sounds, soft, nontender, nondistended Ext: No edema. No bony deformity Neuro Exam: MS: AAOx4, initially globally aphasic but over the course of 10 minutes is receptive component of his aphasia improved and eventually expressive aphasia improved, initially mildly dysarthric but thiscleared also over the course of 20 minutes CN: PERRL, EOMI, resolving right visual field cut Mild right lower facial weakness noted Hearing intact to finger rub Palate elevates symmetrically, tongue protrudes midline SCM and trap strength intact Motor: Normal bulk and tone. Patient with mild left upper extremity arm weakness which is chronic. Patient slow to finger tap onthe right. Right pronator drift on the right. Sensation: Intact to light touch, temperature, and vibration throughout. Extinction on the right. Reflexes: Toes - R down, L down Coordination: Finger to nose intact, no dysmetria Rapid alternating movements & finger tapping smooth and symmetric Heel-parnell intact No tremor Gait: deferred NIH Stroke Scale: (bold applicable choices) NIH Stroke Scale at Initial Evaluation: 1.a. Level of consciousness: 0-Alert 1-Not alert, but arousable with minimal stimulation 2-Not alert, requires repeat stimulation to attend 3-Coma 1.b. Ask patient the month and their age: 0-Answers both correctly 1-Answers one correctly 2-Both incorrect 1.c. Ask patient to open and close eyes: 0-Obeys both correctly 1-Obeys one correctly 2-Both incorrect 2. Best gaze (horizontal eye movement): 0-Normal 1-Partial gaze palsy 2-Forced deviation 3. Visual field testin-No visual field loss 1-Partial hemianopia 2-Complete hemianopia 3-Bilateral hemianopia (blind including cortical blindness) 4. Facial paresis (Ask patient to show teeth or raise eyebrows and close eyes tightly): 0-Normal symmetrical movement 1-Minor paralysis (flattened nasolabial fold, asymmetry on smiling) 2-Partial paralysis (total or near paralysis of lower face) 3-Complete paralysis of one or both sides (absence of facial movement in the upper and lower face) 5. Motor function right arm: 0-Normal (extends arm 90 degrees for 10 seconds without drift) 1-Drift 2-Some effort against gravity 3-No effort against gravity 4-No movement UT-Untestable (Joint fused or limb amputated) 5. Motor function- left arm: 0-Normal (extends arm 90 degrees for 10 seconds without drift) 1-Drift 2-Some effort against gravity 3-No effort against gravity (but baseline) 4-No movement UT-Untestable (Joint fused or limb amputated) 6. Motor function right le-Normal (extends leg 30 degrees for 5 seconds without drift) 1-Drift 2-Some effort against gravity 3-No effort against gravity 4-No movement UT-Untestable (Joint fused or limb amputated) 6. Motor function-left le-Normal (extends leg 30 degrees for 5 seconds without drift) 1-Drift 2-Some effort against gravity 3-No effort against gravity 4-No movement UT-Untestable (Joint fused or limb amputated) 7. Limb ataxia: 0-No ataxia 1-Present in one limb 2-Present in two limbs 8. Sensory (Use pinprick to test arms, legs, trunk and face compare side to side): 0-Normal 1-Mild to moderate decrease in sensation 2-Severe to total sensory loss 9. Best language (describe picture, name items, read sentences): 0-No aphasia 1-Mild to moderate aphasia 2-Severe aphasia 3-Mute 10. Dysarthria (read several words): 0-Normal articulation 1-Mild to moderate slurring of words 2-Near unintelligible or unable to speak UT-Intubated or other physical barrier 11. Extinction and inattention: 0-Normal 1-Inattention or extinction to bilateral simultaneous in one of the sensory modalities 2-Severe paradise-inattention or paradise-inattention to more than one modality TOTAL SCORE: 9 Labs: Recent Results (from the past 24 hour(s)) Basic Metabolic Panel (non-fasting) Result Value Ref Range Glucose Lvl 92 65 - 199 mg/dL BUN 29 (H) 10 - 20 mg/dL Creatinine 4.70 (H) 0.80 - 1.50 mg/dL Sodium 139 135 - 145 mmol/L Potassium 4.0 3.5 - 5.0 mmol/L Chloride 102 98 - 107 mmol/L CO2 24 22 - 31 mmol/L Anion Gap 13 5 - 15 mmol/L Calcium 7.7 (L) 8.5 - 10.5 mg/dL eGFR 13 (L) >=60 mL/min/1.73 m?? eGFR 15 (L) >=60 mL/min/1.73 m?? Phosphorus Result Value Ref Range Phosphorus 3.9 2.5 - 4.5 mg/dL POCT Glucose Result Value Ref Range POC Glucose 153 65 - 199 mg/dL Prothrombin Time Result Value Ref Range PT 10.7 9.4 - 12.5 sec INR 0.9 APTT Result Value Ref Range PTT <20 (L) 25 - 37 sec Hemogram Result Value Ref Range WBC 4.7 4.0 - 9.5 x10(3)/mcL RBC 3.31 (L) 4.58 - 5.54 x10(6)/mcL Hemoglobin 9.2 (L) 13.7 - 16.5 gm/dL Hematocrit 28.6 (L) 40.5 - 48.5 % MCV 86.4 82.9 - 93.1 fL MCH 27.8 27.5 - 32.1 pg MCHC 32.2 32.0 - 35.7 gm/dL Platelets 149 145 - 357 x10(3)/mcL RDWSD 52.2 (H) 36.0 - 45.0 fL RDWCV 17.0 (H) 11.4 - 13.8 % MPV 9.4 7.6 - 12.9 fL nRBC % Auto 0.0 % nRBC Abs Auto 0.000 0.000 - 0.000 x10(3)/mcL Differential, Automated Result Value Ref Range Neutrophils % 64.6 % Neutr Abs (ANC) 3.02 1.70 - 6.10 x10(3)/mcL Lymphocytes % 20.5 % Lymphocytes Abs 1.0 0.9 - 3.2 x10(3)/mcL Monocytes % 12.0 % Monocyte Abs 0.6 0.3 - 0.9 x10(3)/mcL Eosinophils % 2.1 % Eosinophils Abs 0.1 0.0 - 0.4 x10(3)/mcL Basophils % 0.4 % Basophils Abs 0.0 0.0 - 0.1 x10(3)/mcL Immature Gran % 0.40 % Veronika Gran Abs 0.02 0.00 - 0.04 x10(3)/mcL Diagnostic Tests and Imaging: Head CT w/out: 711 PM time Viky attending name IMPRESSION 1. Unchanged size of the mixed attenuation left subdural hematoma. 2. Unchanged local mass effect. 3. No new areas of acute intracranial hemorrhage. Swallow Screen Results: PASSED (All YES responses) Time 830 PM Assessment and Plan: Christy Ambrose is a 57 y.o. w/ 57 y.o. 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 Patient had a gradual improvement of his symptoms over the course of 20 minutes. Patient's deficit likely represented residual impairment from his seizure. CT head did not show any worsening of his known subdural hematoma. Given that the suspicion that the patient had a seizure and not a stroke and the fact that his symptoms resolved did not recommend pursuing further vascular imaging, especially in the setting of his known CKD. Recommend increasing his Keppra to renally adjusted dose of 500 mg twice daily. Defer EEG monitoring for now but this can be considered if his exam fluctuates or if he hasongoing seizures. Thrombolytics were considered and not given secondary to Rapid improvement and Seizure at onset with postictal residual neurological impairments . # RECOMMENDATIONS Increase keppra to 500 mg BID Consider video EEG monitoring but defer for now unless symptoms recur or if exam is fluctuate Consult neurology service pager [phone] Standard [facility] Swallow Screen: This screen is to be used to document a Swallow Screen prior to ingestion of water and /or oral medications for patients with possible stroke (Ischemic or Hemorrhagic). Exclusion Criteria: A swallow screen is not to be performed on patients who: ?? have a decreased level of consciousness. ?? are not able to follow simple commands. ?? are hypoxic, or have increasing O2 needs or may need to be intubated. ?? have a G/J tube for nutrition. ?? have a recent history of a swallowing disorder *These patients should remain NPO (HOLD MEDS) and the physician notified for further orders. Swallow Screen Using Water: None of the Exclusion Criteria as mentioned above is present? Patient is alert and sitting upright? Able to close lips and tongue is midline? Able to cough, manage oral secretions with dry voice? ONLY IF ABOVE ALL YES, Able to swallow 30 ml of water without coughing, displaying a wet voice or choking? Repeat Twice. ??? If YES to all responses, proceed with water and oral medications as well as diet as medical provider deems appropriate. Consider PIG CASTER consult for full evaluation and diet recommendations. ??? If NO to any of the responses, stop immediately, keep patient NPO and notify physician. ??? Associated attestation - Alfonzo Mtz MD - 08/04/2018 6:12 PM EST I have seen and examined Christy Ambrose with the neurology team on 08/04/2018 and agree with the assessment and plan as below. AMS, recent SDH, seizure 57 Y M with IgA nephropathy, s/p renal transplant with traumatic SDH admitted with confusion, seizure CT head shows stable SDH He is still confused. No focal weakness noted. Will arrange EEG. Continue lico Mtz MD Department of Neurology [facility] * Plan of Care - Dona Hickey RN - 08/03/2018 3:32 PM EST Problem: Patient Care Overview Goal: Plan of Care Review Outcome: Ongoing (Interventions Implemented as Appropriate) 08/03/18 0900 08/03/18 1533 Coping/Psychosocial Plan Of Care Reviewed With patient -- Plan of Care Review Progress -- no change OUTCOME EVALUATION NOTE: OUTCOME SUMMARY: Pt is alert, oriented to person and time. VSS. Physical assessment as documented. Able to voice needs and concerns. Changed pt's HD line dressing. Ambulated pt around unit, 4 laps with 2-assist. Around 1802 pt ws observed by CORRUGATOR OPERATOR that pt was not following direction and head was deviated to the right. Life safety notified, Charge notified. Pt started to have tonic-clonic activity, HURT call placed. Tonic-clonic activity occurred for about 1-2 minutes. No ativan given. Life safety at bedside.Post-ictal showed right-sided facial droop with R-sided weakness initially. Stroke alert called, MD's at bedside. R-sided weakness had improved, but not back to baseline. Noted new word salad with word searching. CT scan of head completed. VSS stable through event, Blood sugar normal. After returning from CT, EKG obtained and labs. Tele applied. IV Keppra ordered (seeMAR). R-sided weakness has improved. Less word searching and word salad. Neuro surg came to assess pt. Seizure precautions ordered .PLAN MOVING FORWARD: Monitor VS/Labs Monitor I & O. Neuro checks. INDIVIDUALIZED FALL PREVENTION INTERVENTIONS: Patient-specific fall risk factors per assessment: [current deficits]: IV, masimo, weakness, diagnosis, confusion, history of falls Assistance [level of assistance required for transfers and ambulation]: 2-assist with walker Supervision [direct monitoring required during toileting and ADLs]: Hands on Surveillance [continuous indirect monitoring]: Bed alarm, hourly rounding Patient-specific fall prevention interventions for sensory deficits provided, if applicable: [X] N/A CPG GOAL OUTCOME EVALUATION: * Plan of Care - Clarence Tadeo RN - 08/03/2018 4:35 AM EST Problem: Patient Care Overview Goal: Plan of Care Review Outcome: Ongoing (Interventions Implemented as Appropriate) 08/02/18181508/02/182056 Coping/Psychosocial Plan Of Care Reviewed With -- patient Plan of Care Review Progress progress towards functional goals is fair -- OUTCOME EVALUATION NOTE: OUTCOME SUMMARY: Pt alert and oriented to self and time overnight. VSS on RA. Head CT completed this morning around 0315. Pt slept in between care overnight. No acute events. Safety maintained. PLAN MOVING FORWARD: Discharge planning INDIVIDUALIZED FALL PREVENTION INTERVENTIONS: Patient-specific fall risk factors per assessment: [current deficits]: General weakness, unsteady gait, confusion Assistance [level of assistance required for transfers and ambulation]: 1 assist w/ walker Supervision [direct monitoring required during toileting and ADLs]: Hands on Surveillance [continuous indirect monitoring]: Purposeful rounding, bed alarm, masimo Patient-specific fall prevention interventions for sensory deficits provided, if applicable: [X] N/A CPG GOAL OUTCOME EVALUATION: * Plan of Care - Radha Mckoy RN - 08/02/2018 6:16 PM EST Problem: Patient Care Overview Goal: Plan of Care Review Outcome: Ongoing (Interventions Implemented as Appropriate) 08/02/18 1816 Coping/Psychosocial Plan Of Care Reviewed With patient Plan of Care Review Progress progress towards functional goals is fair OUTCOME EVALUATION NOTE: OUTCOME SUMMARY: Pt oriented to self, place, and time this AM. Went for HD, 2 L removed. BPs continue to be elevated, however did not require PRN Labetalol. EKG done this afternoon. PO intake remains adequate. CHG bath completed. Brother updated throughout the day. Pt continues to be slightly impulsive setting off alarms, however is easily redirectable. No other acute events to note at this time. Will continue tomonitor and notify MD of any changes. PLAN MOVING FORWARD: Monitor creatinine, reorientation as needed, maintain alarms to prevent falls INDIVIDUALIZED FALL PREVENTION INTERVENTIONS: Patient-specific fall risk factors per assessment: [current deficits]: Poor safety awareness, previous falls, weakness Assistance [level of assistance required for transfers and ambulation]: x2 assist w/ walker Supervision [direct monitoring required during toileting and ADLs]: Hands on Surveillance [continuous indirect monitoring]: Bed alarm set, call light within reach, purposeful rounding Patient-specific fall prevention interventions for sensory deficits provided, if applicable: [X] N/A CPG GOAL OUTCOME EVALUATION: * Consult Note - John Curtis MD - 08/02/2018 9:12 AM EST Neurosurgery H&P / Consultation CC: L saSDH HPI: Asked by Sabrina Flynn III, MD to see Christy Ginna Ambrose, a 57 y.o. male with PMH significant for HTN, DVT, HTN, CKD regarding evaluation and management of a left saSDH. The patient was initially seen by our service 06/02 with a right frontal traumatic subarachnoid hemorrhage. He was managed conservatively off anticoagulation and discharged without any issue. He followed up in clinic a week later and his interval head CT showed resolution of his right frontal traumatic subarachnoid hemorrhage. Howeverthe CT was concerning for the development of a small left convexity extra-axial collection. Repeat head CT was ordered for 4 weeks at that time. The patient was admitted 3 days ago with chronic kidney disease requiring dialysis. Head CT was repeated as per schedule and this showed interval enlargement of the extra-axial collection. The patient got heparin for his dialysis, otherwise has been off any antiplatelet or anticoagulation. Medical History: Past Medical History: Diagnosis Date ??? BP (high blood pressure) ??? DVT (deep venous thrombosis) ??? Gout ??? Hypertension ??? Kidney problem ??? Pneumonia ??? TBI (traumatic brain injury) 1979 Surgical History: Past Surgical History: Procedure Laterality Date ??? CREATED BY INTERFACE Entered not Verified Procedure Date: 09/19/2010 ??? IR DIALYSIS ACCESS - TUNNELED LINE 07/30/2018 IR Dialysis Access - Tunneled Line 07/30/[address] [facility] INTERVENTIONL RAD ??? KIDNEY TRANSPLANT KIDNEY TRANSPLANT / RECIPIENT/LT Procedure Date: 11/26/2002 ? ? PRO DEBRIDEMENT SUBCUTANEOUS TISSUE 20 SQCM/< Left 02/20/2016 DEBRIDEMENT SKIN AND SUBCU, HEAD/NECK performed by Miguel Angel Moreno MD at [facility] MAIN OR ??? PRO DECOMPRESS FOREARM, BRACH ART EXPLOR Left 04/06/2018 FASCIOTOMY, FOREARM, WITH BRACHIAL ARTERY EXPLORATION (WRVU 8.41) performed by Lida Peter MDat [facility] MAIN OR ??? PRO DIRECT REPAIR RUPTURED ANEURYSM, AXILLO-BRACHIAL ARM INCIS Left 04/06/2018 @REPAIR, RUPTURED AXILLARY OR BRACHIAL ARTERY ANEURYSM BY ARM INCISION (WRVU *) performed by Lida Peter MD at [facility] MAIN OR ??? PRO EXC PAROTD, TOTAL, UNILAT RAD NECK Left 02/05/2016 @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, TOTAL, WITH UNILATERAL RADICAL NECK DISSECTION performed by Miguel Angel Moreno MD at [facility] OR ??? PRO EXC SKIN MALIG 3.1-4CM FACE, FACIAL Left 02/05/2016 EXC MALIGNANT LESION, 3.1 TO 4.0CM, FACE performed by Miguel Angel Moreno MD at [facility] OR ? ? PRO EXC SKIN MALIG >4CM TRUNK, ARM, LEG 04/19/2012 EXC MALIGNANT LESION, MICHAEL > 4.0CM, TRUNK performed by SABRINA SANCHEZ at [facility] OR ??? PRO LAP, RADICAL NEPHRECTOMY Left 05/31/2017 @LAPAROSCOPY, RADICAL NEPHRECTOMY (WRVU 25.06) performed by Jax Mills MD at [facility] OR ??? PRO LIGATN ANGIOACCESS AV FISTULA Left 04/19/2018 LIGATION OR BANDING OF HEMODIALYSIS FISTULA OR GRAFT UPPER EXTREMITY (WRVU 6.25) performed by Odalis Elias MD at [facility] MAIN OR ??? PRO NEGATIVE PRESSURE WOUND THERAPY, LESS THAN OR EQUAL TO 50 SQCM Left 04/19/2018 DRESSING CHANGE (VAC ASSISTED) UP TO 50SQ.CM (WRVU 0.55) performed by Odalis Elias MD [facility] OR ??? PRO REBL VES GRAFT, UP EXTREM Left 04/06/2018 REPAIR BLOOD VESSEL WITH GRAFT OTHER THAN VEIN, UPPER EXTREMITY (WRVU 15.83) performed by Lida Peter MD at [facility] OR ??? PRO RELIEVE PRESSURE ON NERVE(S) Left 04/06/2018 (MSURG) CARPAL TUNNEL (WRVU 4.82) performed by Silviano Sparks MD at [facility] OR ??? PRO REPAIR INTERMEDIATE S/A/T/E 2.6-7.5 CM 04/19/2012 REPAIR INTERMEDIATE WOUND, (NO HANDS OR FEET) 2.6 TO 7.5CM, UPPER EXTREMITY performed by SABRINA SANCHEZ at [facility] OR ? ? PRO REPAIR INTERMEDIATE S/A/T/E > 30.0 CM Left 04/14/2018 REPAIR INTERMEDIATE WOUND, (NO HANDS OR FEET) >30.0CM, UPPER EXTREMITY (WRVU 5) performed by Yimi Easton MD at [facility] MAIN OR ??? PRO REVISE MEDIAN N/CARPAL TUNNEL SURG Left 04/06/2018 MEDIAN NERVE DECOMPRESSION (CARPAL TUNNEL RELEASE) (WRVU 4.97) performed by Lida Peter MD [facility] MAIN OR ? ? PRO SPLIT GRFT TRUNK, ARM, LEG <100SQCM Left 04/26/2018 SPLIT THICK SKIN GRAFT,100 SQ CM OR LESS, ARMS (WRVU 9.9) performed by Silviano Sparks MD at [facility] MAIN OR ? ? PRO SPLIT GRFT, HEAD, FAC, HAND, FEET <100SQCM N/A 02/20/2016 SPLIT THICKNESS SKIN SPLIT GRAFT,100SQ CM OR LESS, NECK performed by Miguel Angel Moreno MD at [facility] MAIN OR ??? PRO SPLIT GRFT, TRUNK, ARM, LEG EA 100SQCM N/A 04/26/2018 EA.ADDITIONAL 100SQ.CM STSG (WRVU 1.72) performed by Silviano Sparks MD at [facility] MAIN OR ??? PRO UPPER GI ENDOSCOPY, BIOPSY N/A 05/13/2017 EGD WITH BIOPSY (WRVU 2.49) performed by Aditya Barrera MD at [facility] ENDOSCOPY ??? PRO VASCULAR SURGERY PROCEDURE UNLIST Left 11/20/2015 LIGATION\REPAIR AV FISTULA performed by Camilo Ireland MD at [facility] MAIN OR ??? PRO VASCULAR SURGERY PROCEDURE UNLIST Left 11/20/2015 EXCISION VEIN FROM HAND performed by Camilo Ireland MD at [facility] MAIN OR ??? US RENAL TRANSPLANT BIOPSY 12/31/2010 ??? US RENAL TRANSPLANT RIGHT Right 06/04/2018 US Renal Transplant Right 06/04/2018 [facility] RAD ULTRASOUND Medications: Medications Prior to Admission Medication Sig Dispense Refill Last Dose ??? sodium bicarbonate 650 mg Tablet Take 1 tablet by mouth 3 times daily. 90 tablet 11 ??? losartan (COZAAR) 100 mg Tablet Take 2 tablets by mouth every morning. (Patient taking differently: Take 50 mg by mouth every morning. ) 60 tablet 11 ??? hydrALAZINE (APRESOLINE) 25 mg Tablet Take 5 tablets by mouth 3 times daily. 450 tablet 11 ??? furosemide (LASIX) 40 mg Tablet Take 1 tablet by mouth 3 times daily. 90 tablet 11 ??? calciTRIol (ROCALTROL) 0.5 mcg Capsule Take 1 capsule by mouth daily. 30 capsule 11 ??? allopurinol (ZYLOPRIM) 100 mg Tablet Take 1 tablet by mouth daily. 30 tablet 11 ??? dilTIAZem (CARTIA XT) 120 mg Capsule, Sust. Release 24 hr Take 1 capsule by mouth daily. 90 capsule 3 Taking ??? calcium carbonate 648 mg calcium Tablet Take 1 tablet by mouth 3 times daily. Take on empty stomach. 90 tablet 11 Taking ??? acetaminophen (TYLENOL) 500 mg Tablet Take 2 tablets by mouth every 6 hours. 30 tablet 1 Taking ??? levETIRAcetam (KEPPRA) 500 mg Tablet Take 500 mg by mouth 2 times daily. Take 500 mg every morning and 250 mg every morning. Taking ??? amLODIPine (NORVASC) 2.5 mg Tablet Take 2.5 mg by mouth daily. Taking ??? tacrolimus (PROGRAF) 1 mg Capsule Take 1 capsule by mouth nightly. Taking ??? tacrolimus (PROGRAF) 0.5 mg Capsule Take 3 capsules by mouth daily. Taking ??? metoprolol tartrate (LOPRESSOR) 50 mg Tablet Take 1 tablet by mouth 3 times daily. (Patient taking differently: Take 25 mg by mouth 3 times daily. ) Taking ??? pantoprazole (PROTONIX) 20 mg Tablet, Delayed Release (E.C.) Take 1 tablet by mouth 2 times daily. 180 tablet 3 Taking ??? mycophenolate (CELLCEPT) 250 mg Capsule Take 1 capsule by mouth 2 times daily. Kidney Transplant Z94.0. Transplant Date; 11-26-02 180 capsule 11 Taking ??? multivitamin Capsule Take 1 capsule by mouth daily. Taking ??? levothyroxine (SYNTHROID) 100 mcg Tablet Take 100 mcg by mouth daily. Taking Allergies: Allergies Allergen Reactions ??? Benazepril Hcl ??? Codeine Other (See Comments) Patient does not know reaction ??? Hydrochlorothiazide ??? Pollen Extracts Sneezing/runny nose Family History: Family History Problem Relation Age of Onset ??? Pancreatitis Father Social History: Social History Tobacco Use ??? Smoking status: Former Smoker Packs/day: 0.25 Years: 1.50 Pack years: 0.37 Types: Cigarettes Last attempt to quit: 12/03/2000 Years since quittin.6 ??? Smokeless tobacco: Former User Quit date: 04/14/2001 Substance Use Topics ??? Alcohol use: No ??? Drug use: No Types: Marijuana Comment: havent in Review of Systems: Constitutional: No recent weight loss, fevers, chills, night sweats. HEENT: No recent visual changes, hearing changes, headache. Cardiovascular: No chest pain, palpitations, orthopnea. Pulmonary: No shortness of breath. No cough, no wheezing. GI: No abdominal pain, vomiting, significant change in bowel habits. : No dysuria, urinary retention, urinary incontinence. Musculoskeletal: No joint pain. Endocrine: No heat/cold intolerance, polyuria. Skin: No rashes. Neuro: See HPI. Physical Exam: Vital Signs: Temp: [36.5 ??C (97.7 ??F)-36.9 ??C (98.4 ??F)] Heart Rate: [59-92] Resp: [16-20] BP: (129-165)/(82-100) SpO2: [90 %-95 %] Heart Rate from SPO2: [59 bpm-69 bpm] BMI: Weight: 98.2 kg (216 lb 7.9 oz) BMI (Calculated): 32.47 BMI Classification: Obese Sensorium: Awake. Alert. Oriented x3 (himself, place and month) GCS = E 4 V 5 M 6 = 15 /15 Speech - fluent, naming and repetition intact CN: CN II - PERRL. CN III, IV, - EOMI. No diplopia CN V - V1-3 dermatomes intact to LT, MM 5/5 bilat CN VII - No facial asymmetry CN VIII - Hearing intact to limited bedside exam Motor: Pronator drift: Rt - Lt - Segment Muscle Action Left Right C5 Deltoid Shoulder Abduction 5 5 C6 Biceps Elbow flexion 5 5 C6 Extensor carpi radialis Wrist extension 5 5 C7 Triceps Elbow extension 5 5 C8 Finger flexors Grasp 5 5 T1 Interossei Finger abduction 5 5 L2 Iliopsoas Hip flexion 5 5 L3 Quadriceps Knee extension 5 5 L4 Tibialis anterior Dorsiflexion 5 5 L5 Extensor hallucis Great toe extension 5 5 S1 Gastrocnemius Plantar flexion 5 5 Sensory: LT - Intact to x4 extremities Labs: Recent Labs 08/02/18 0448 08/01/18 0435 07/31/18 0813 NA 142 142 147* K 4.8 4.4 4.9 CL 106 106 107 CO2 22 19* 17* BUN 56* 80* 76* CREATININE 6.95* 9.31* 8.91* GLUCOSE 92 99 111 No results for input(s): WBC, HGB, PLATELET in the last 72 hours. No results for input(s): PT, INR in the last 72 hours. No results for input(s): AST, ALT, BILITOT, ALKPHOS, ALB, PROT, LIPASE, AMYLASE in the last 72 hours. Radiology: Head CT: IMPRESSION Interval significant increase in size of extra-axial collection suggesting acute on chronic hemorrhage with increase in mass effect on the adjacent left posterior frontal and parietal lobe parenchyma. Films personally reviewed / reviewed with radiologist Impression: 57 y.o. male with a recent history of TBI after a fall and R frontal tSAH. This has resolved but the patient now has an enlarging L frontal saSDH. The patient has remained neurologically unchanged. Problem List L saSDH with local mass effect CKD (on dialysis) HTN Hx of DVT Plan: -No surgical indications at this time -Close neurological monitoring, q4 neuro checks -repeat CT head in the AM -BP control, keep SBP<160 -Hold anticoagulation -GI prophylaxis - FULL CODE Plan of care discussed with Dr. Disla Active Hospital Problems Diagnosis ??? Increased anion gap metabolic acidosis ??? Hypernatremia ??? Acute renal failure ??? Hypertension Resolved Hospital Problems No resolved problems to display. Active Non-Hospital Problems Diagnosis ??? Kidney transplant failure ??? CKD (chronic [...] GFR 15-29 ml/min ??? 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 H/O [...] Recurrent in the transplant ??? Gout ??? Left leg DVT ??? Epilepsy SHAVONNEAD Maycol CURTIS MD 08/02/2018 * Plan of Care - Clarence Tadeo RN - 08/02/2018 4:41 AM EST Problem: Patient Care Overview Goal: Plan of Care Review Outcome: Ongoing (Interventions Implemented as Appropriate) 08/01/18180008/01/182004 Coping/Psychosocial Plan Of Care Reviewed With -- patient Plan of Care Review Progress progress toward functional goals as expected -- OUTCOME EVALUATION NOTE: OUTCOME SUMMARY: Pt alert and oriented to self, place, and time overnight. VSS on RA. BP elevated at start of shift,medication admin, see SEP. Pt slept overnight. No acute events. Safety maintained. PLAN MOVING FORWARD: HD Discharge planning INDIVIDUALIZED FALL PREVENTION INTERVENTIONS: Patient-specific fall risk factors per assessment: [current deficits]: General weakness, unsteady gait, confusion Assistance [level of assistance required for transfers and ambulation]: 1-2 assist w/ walker Supervision [direct monitoring required during toileting and ADLs]: Hands on Surveillance [continuous indirect monitoring]: Purposeful rounding, bed alarm Patient-specific fall prevention interventions for sensory deficits provided, if applicable: [X] N/A CPG GOAL OUTCOME EVALUATION: * Plan of Care - Radha Mckoy RN - 08/01/2018 6:04 PM EST Problem: Patient Care Overview Goal: Plan of Care Review Outcome: Ongoing (Interventions Implemented as Appropriate) 01/21/19 1801 Coping/Psychosocial Plan Of Care Reviewed With patient;family Plan of Care Review Progress progress toward functional goals as expected OUTCOME EVALUATION NOTE: OUTCOME SUMMARY: Pt oriented to self and place. BPs elevated throughout the morning requiring PRN Labetalol x1 in Dialysis. Per HD RN, 2.5 L removed. BPs improved since return from HD. PO intake has been adequate throughout the day. Went for head CT this evening. Pt continues to be impulsive at times, redirection provided. CHG bath completed. No other acute events to note at this time. Will continue to monitor and notify MD of any changes. PLAN MOVING FORWARD: Monitor BPs, reorientation as needed, INDIVIDUALIZED FALL PREVENTION INTERVENTIONS: Patient-specific fall risk factors per assessment: [current deficits]: Unsteady gait, poor safety awareness, previous fall Assistance [level of assistance required for transfers and ambulation]: x1 assist w/ walker Supervision [direct monitoring required during toileting and ADLs]: Hands on Surveillance [continuous indirect monitoring]: Bed alarm set, call light within reach, purposeful rounding Patient-specific fall prevention interventions for sensory deficits provided, if applicable: [X] N/A CPG GOAL OUTCOME EVALUATION: * Initial Assessments - Walt Knox MSW - 08/01/2018 3:01 PM EST Office of Care Management Initial Assessment JIMENA PARK reviewed record and discussed patient with Care Team. Source of Information: Patient off Unit for procedures, d/w brother DPOA-HC, and medical record Introduced self/reviewed role; services accepted. Reason for Hospitalization: Per H&P admit note by Dr. Aguilar: Pertinent Hospital Problems Active Hospital Problems ?? Diagnosis ? Acute renal failure ? Resolved Hospital Problems No resolved problems to display. ? HPI This is a 57 y.o. male ECF resident (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 Past Medical History: Diagnosis Date ??? BP (high blood pressure) ??? DVT (deep venous thrombosis) ??? Gout ??? Hypertension ??? Kidney problem ??? Pneumonia ??? TBI (traumatic brain injury) 1980 Hospitalizations (Admits) Within the Past 30 Days: None Anticipated Length Of Stay (If known): Unknown. Today is day two (of minimum of three) of new HD. Other testing pending to determine assessment and treatment plan. Current Decision-Making Capacity: Alert, oriented, full capacity. Advance Care Planning: Full Code AD's on file, from 2010, pt's DPOA-HC is brother Lucas Ambrose who resides in [facility], patient's 86 year old mother Ilda is listed as second POA. Current Coping/Education/Information Needs: Patient has a history of TBI at age of 19. Current Functional Ability: Currently requiring assistive person for ADL's and ambulation/mobility. Functional Status Prior to Admission: Independent Home Environment: Pr brother, pt has been in facility residence since 04/06/18: most recently has been a resident @ [facility] (under private pay), [address] [place] [address] . Prior to this was at [address] [id number] for two weeks.. Mother-Ilda, has now been placed for residence in [facility] in [place], [place] Address: [address] [place] [phone] (Ginger-RN Director and her son, Tab-Coordinator). Application for pt for admission to [facility] was submitted in June. [address] [id number] Social & Family Supports/Community Resources: Mother brother Extended Emergency Contact Information Primary Emergency Contact: Lucas Ambrose Address: [address] [place] [address] [place] Relation: Sibling Secondary Emergency Contact: Yenifer Frausto Address: [address] [place] [address] [place] Relation: Aunt/Uncle Behavioral Health History: PMH TBI Substance Use/Abuse: Tobacco hx: denies ETOH hx: denies Illicit drug use hx: denies Other Pertinent/Service Specific Information: n/a Health/Prescription Coverage: Primary Insurance: [place] Payor: [place] / Plan: [place] PRIMARY CARE PL[place] / Product Type: *No Product type* / Secondary Insurance: N/A Prescription Coverage: same Preferred Pharmacy: [facility] - [place], [place] - [address] [facility] [address] Replaced by [facility] [id number] [id number] - [place], [place] - [address] [facility] [address] [facility] [address] [id number] [place], [place] [address] [facility] [address] [facility] [id number] [facility] [place], [place] - [address] [facility] [address] [facility] [address] Other: pt has application for [facility] for Care/[employer]legraph[employer] Type[employer] Mechan[employer] Care Medicaid. Submitted-over resourcesand brother expects he will remain private pay for a while before he may meet program eligibility limits. Primary Care Provider: Carroll Fuentes DO [phone] Patient/Caregiver Goals of Treatment: per Lucas parker, Pt continues to require supervision. Whether pt needs to return first to SNF vs. possible direct admit to [facility] TBD. Per brother-HD is not a barrier for [facility] (would target [facility] for HD. Potential Needs for Transition of Care: Rehab/SNF: as above-being assessed Home Health: unknown DME: unknown Dialysis: new HD as noted-? Chair @ [facility]? Community Resources: n/a Transportation: TBD Other: n/a Anticipated Barriers to Discharge/Special Considerations: none anticipated Assessment: Pt being supported with private pay at SNF recently. Family has been w/w pt for possible admission to [facility] if pt does not require SNF LOC. Pt with TBI and new HD needs. Assessments continue for plan of care. At least three HD runs needs for securing HD chair. Other care needs TBD for d/c planning. Plan: Following for HAND SPINNER and care management support through disposition. Will call [facility] to discuss status of pt's application for admission. A member of the Care Management team will continue to monitor progress, follow for continuity of care and assist with transition of care planning. JIMENA PARK Pager: [phone] * Plan of Care - Clarence Tadeo RN - 08/01/2018 4:06 AM EST Problem: Patient Care Overview Goal: Plan of Care Review Outcome: Ongoing (Interventions Implemented as Appropriate) 07/30/1822007/31/182029 Coping/Psychosocial Plan Of Care Reviewed With -- patient Plan of Care Review Progress progress toward functional goals as expected -- OUTCOME EVALUATION NOTE: OUTCOME SUMMARY: Pt alert and oriented to self and place overnight. VSS on RA. Pt confused and setting bed alarm offfrequently at start of shift; pt reoriented as needed & educated on use of call daniels. CHG bath completed. Pt slept overnight. No acute events. Safety maintained. PLAN MOVING FORWARD: HD Discharge planning INDIVIDUALIZED FALL PREVENTION INTERVENTIONS: Patient-specific fall risk factors per assessment: [current deficits]: Confusion, general weakness,IV Assistance [level of assistance required for transfers and ambulation]: 1 assist Supervision [direct monitoring required during toileting and ADLs]: Within arms reach Surveillance [continuous indirect monitoring]: Purposeful rounding, bed alarm Patient-specific fall prevention interventions for sensory deficits provided, if applicable: [X] N/A CPG GOAL OUTCOME EVALUATION: * Plan of Care - Tana Garcia RN - 07/31/2018 5:05 AM EST Problem: Patient Care Overview Goal: Plan of Care Review Outcome: Ongoing (Interventions Implemented as Appropriate) 07/30/1822007/30/182021 Coping/Psychosocial Plan Of Care Reviewed With -- patient Plan of Care Review Progress progress toward functional goals as expected -- OUTCOME EVALUATION NOTE: ?? OUTCOME SUMMARY: ?? Patient disoriented to time and situation despite frequent re-direction, often confused, repeated attempts to remove clothing and climb out of bed overnight. Hypertension continues, BP 199/112. +2/3 edema on BLE, compression stockings in place, legs elevated on pillows. Mild dyspnea only noted during activity, O2 sats dropped to 88% during periods of confusion and anxiety, pt unable to tolerate nasal cannula, O2 sats continue in the low 90s on room air. Resting between care, will continue to monitor. ?? PLAN MOVING FORWARD: ?? Dialysis BP control ?? INDIVIDUALIZED FALL PREVENTION INTERVENTIONS ?? Patient-specific fall risk factors per assessment: [current deficits]: BLE edema, generalized weakness, history of TBI ?? Assistance [level of assistance required for transfers and ambulation]: x1 assist ?? Supervision [direct monitoring required during toileting and ADLs]: Hands on ?? Surveillance [continuous indirect monitoring]: Masimo, call daniels in reach, bed alarm, frequent rounding ?? Patient-specific fall prevention interventions for sensory deficits provided, if applicable: ? CPG GOAL OUTCOME EVALUATION: ?? * Plan of Care - Rajeev Rogers RN - 07/30/2018 4:36 PM EST Problem: Patient Care Overview Goal: Plan of Care Review Outcome: Ongoing (Interventions Implemented as Appropriate) 07/30/1822007/30/18 0700 Coping/Psychosocial Plan Of Care Reviewed With -- patient Plan of Care Review Progress progress toward functional goals as expected -- OUTCOME EVALUATION NOTE: OUTCOME SUMMARY: Christy had an okay day today. HTN in the 180-190s systolic; hydralazine, diltiazem, and metoprolol given per MAR. New tunnneled HD line placed for HD today; 2L taken off- blood pressure alleviated w/ dialysis. Intermittently confused to situation/forgetful. Extremities elevated with pillows and stockings on all shift. Emesis x1 after dinner; compazine x1 w/ good effect. Will continue to monitor PLAN MOVING FORWARD: Monitor labs and vitals Monitor HTN-meds Elevate legs Encourage ambulation HD INDIVIDUALIZED FALL PREVENTION INTERVENTIONS: Patient-specific fall risk factors per assessment: [current deficits]: edema; hx TBI; tunneled line Assistance [level of assistance required for transfers and ambulation]: ax1 w/ walker Supervision [direct monitoring required during toileting and ADLs]: ax1 Surveillance [continuous indirect monitoring]: masimo; call daniels in reach; purposeful rounding Patient-specific fall prevention interventions for sensory deficits provided, if applicable: CPG GOAL OUTCOME EVALUATION: * Plan of Care - Tana Garcia RN - 07/30/2018 6:47 AM EST Problem: Patient Care Overview Goal: Plan of Care Review Outcome: Ongoing (Interventions Implemented as Appropriate) 07/30/18 0221 Coping/Psychosocial Plan Of Care Reviewed With patient Plan of Care Review Progress progress toward functional goals as expected OUTCOME EVALUATION NOTE: OUTCOME SUMMARY: Patient arrived from ED at 00:50, report received from RN. BP 160/124 upon arrival, paged. BP 191/128 this morning, MD notified. +2/3 edema on BLE, compression stockings in place, legs elevated onpillows. Pt NPO upon arrival to floor, mouth swabs at bedside. Medications reviewed with patient, he states that he took his PM doses prior to arrival in ED, evening doses held, see SEP. Patient ambulated from stretcher to bed with x1 assist and cane from home. Pt is A+Ox3, occasionally forgetful or slow to respond. Patient remains on room air, mild dyspnea only noted during activity. Resting comfortably between care, will continue to monitor. PLAN MOVING FORWARD: NPO for dialysis line placement in AM INDIVIDUALIZED FALL PREVENTION INTERVENTIONS Patient-specific fall risk factors per assessment: [current deficits]: BLE edema, generalized weakness, history of TBI Assistance [level of assistance required for transfers and ambulation]: x1 assist Supervision [direct monitoring required during toileting and ADLs]: Hands on Surveillance [continuous indirect monitoring]: Masimo, call daniels in reach, bed alarm, frequent rounding Patient-specific fall prevention interventions for sensory deficits provided, if applicable: CPG GOAL OUTCOME EVALUATION: * Consult Note - Nichole Rodríguez MD - 07/29/2018 10:13 PM EST HYPERTENSION/ NEPHROLOGY CONSULT PATIENT: Christy Ambrose : 1960 REASON FOR CONSULTATION: Referred for evaluation for DINING ROOM COORDINATOR in a failed transplant HPI:Mr. Christy Ambrose is a??well known??57??y.o. male with pmh of hypertension, prior TBI with epilepsy??(lico), gout, ESRD secondary to IgA nephropathy s/p donor renal transplant in 2002 (complicated by delayed graft function, recurrent IgA nephropathy and Prograf toxicity) on immunosuppression therapy (tacrolimus and??mycophenolate), papillary renal cancer for kenaitze left kidney s/p laparoscopic left radical nephrectomy in May 2017. He was admitted 04/06-05/04/18 for hemorrhagic shock after being found down in a pool of blood after exsanguinating from his AV fistula and had another admission in related to a fall with SAH ??.He was recently seen at Dr Rivera office on 07/19/2018 when he mentioned that his graft failed to recover completely and is with GFR <7and creatinine doubled since May. .He is supposed to see nephrology office on coming Wednesday but ended up in ER because of uncontrolled blood pressures and anasarca.He is currently living in rehab ,c/o exertional sob ,able to communicate appropriately with no significant change in mental status.Hedid have ongoing swellings and worsening blood pressures since few weeks . He did c/o ongoing itching in bilateral lower extremities but denied any sleep disturbances or change in appetite or nausea or vomiting .He still urinates but quantity being going down ,denied any blood or pain with urination .He is currently getting admitted and nephrology was consulted for evaluation of DINING ROOM COORDINATOR. Past Medical History: Diagnosis Date ??? BP (high blood pressure) ??? DVT (deep venous thrombosis) ??? Gout ??? Hypertension ??? Kidney problem ??? Pneumonia ??? TBI (traumatic brain injury) 1979 Past Surgical History: Procedure Laterality Date ??? CREATED BY INTERFACE Entered not Verified Procedure Date: 09/19/2010 ??? KIDNEY TRANSPLANT KIDNEY TRANSPLANT / RECIPIENT/LT Procedure Date: 11/26/2002 ? ? PRO DEBRIDEMENT SUBCUTANEOUS TISSUE 20 SQCM/< Left 02/20/2016 DEBRIDEMENT SKIN AND SUBCU, HEAD/NECK performed by Miguel Angel Moreno MD at [facility] MAIN OR ??? PRO DECOMPRESS FOREARM, BRACH ART EXPLOR Left 04/06/2018 FASCIOTOMY, FOREARM, WITH BRACHIAL ARTERY EXPLORATION (WRVU 8.41) performed by Lida Peter MDat [facility] OR ??? PRO DIRECT REPAIR RUPTURED ANEURYSM, AXILLO-BRACHIAL ARM INCIS Left 04/06/2018 @REPAIR, RUPTURED AXILLARY OR BRACHIAL ARTERY ANEURYSM BY ARM INCISION (WRVU *) performed by Lida Peter MD at [facility] OR ??? PRO EXC PAROTD, TOTAL, UNILAT RAD NECK Left 02/05/2016 @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, TOTAL, WITH UNILATERAL RADICAL NECK DISSECTION performed by Miguel Angel Moreno MD at [facility] OR ??? PRO EXC SKIN MALIG 3.1-4CM FACE, FACIAL Left 02/05/2016 EXC MALIGNANT LESION, 3.1 TO 4.0CM, FACE performed by Miguel Angel Moreno MD at [facility] OR ? ? PRO EXC SKIN MALIG >4CM TRUNK, ARM, LEG 04/19/2012 EXC MALIGNANT LESION, MICHAEL > 4.0CM, TRUNK performed by SABRINA SANCHEZ at [facility] OR ??? PRO LAP, RADICAL NEPHRECTOMY Left 05/31/2017 @LAPAROSCOPY, RADICAL NEPHRECTOMY (WRVU 25.06) performed by Jax Mills MD at [facility] OR ??? PRO LIGATN ANGIOACCESS AV FISTULA Left 04/19/2018 LIGATION OR BANDING OF HEMODIALYSIS FISTULA OR GRAFT UPPER EXTREMITY (WRVU 6.25) performed by Odalis Elias MD at [facility] OR ??? PRO NEGATIVE PRESSURE WOUND THERAPY, LESS THAN OR EQUAL TO 50 SQCM Left 04/19/2018 DRESSING CHANGE (VAC ASSISTED) UP TO 50SQ.CM (WRVU 0.55) performed by Odalis Elias MD [facility] OR ??? PRO REBL VES GRAFT, UP EXTREM Left 04/06/2018 REPAIR BLOOD VESSEL WITH GRAFT OTHER THAN VEIN, UPPER EXTREMITY (WRVU 15.83) performed by Lida Peter MD at [facility] MAIN OR ??? PRO RELIEVE PRESSURE ON NERVE(S) Left 04/06/2018 (MSURG) CARPAL TUNNEL (WRVU 4.82) performed by Silviano Sparks MD at [facility] MAIN OR ??? PRO REPAIR INTERMEDIATE S/A/T/E 2.6-7.5 CM 04/19/2012 REPAIR INTERMEDIATE WOUND, (NO HANDS OR FEET) 2.6 TO 7.5CM, UPPER EXTREMITY performed by SABRINA SANCHEZ at [facility] MAIN OR ? ? PRO REPAIR INTERMEDIATE S/A/T/E > 30.0 CM Left 04/14/2018 REPAIR INTERMEDIATE WOUND, (NO HANDS OR FEET) >30.0CM, UPPER EXTREMITY (WRVU 5) performed by Yimi Easton MD at [facility] MAIN OR ??? PRO REVISE MEDIAN N/CARPAL TUNNEL SURG Left 04/06/2018 MEDIAN NERVE DECOMPRESSION (CARPAL TUNNEL RELEASE) (WRVU 4.97) performed by Lida Peter MD [facility] MAIN OR ? ? PRO SPLIT GRFT TRUNK, ARM, LEG <100SQCM Left 04/26/2018 SPLIT THICK SKIN GRAFT,100 SQ CM OR LESS, ARMS (WRVU 9.9) performed by Silviano Sparks MD at [facility] MAIN OR ? ? PRO SPLIT GRFT, HEAD, FAC, HAND, FEET <100SQCM N/A 02/20/2016 SPLIT THICKNESS SKIN SPLIT GRAFT,100SQ CM OR LESS, NECK performed by Miguel Angel Moreno MD at [facility] MAIN OR ??? PRO SPLIT GRFT, TRUNK, ARM, LEG EA 100SQCM N/A 04/26/2018 EA.ADDITIONAL 100SQ.CM STSG (WRVU 1.72) performed by Silviano Sparks MD at [facility] MAIN OR ??? PRO UPPER GI ENDOSCOPY, BIOPSY N/A 05/13/2017 EGD WITH BIOPSY (WRVU 2.49) performed by Aditya Barrera MD at [facility] ENDOSCOPY ??? PRO VASCULAR SURGERY PROCEDURE UNLIST Left 11/20/2015 LIGATION\REPAIR AV FISTULA performed by Camilo Ireland MD at [facility] MAIN OR ??? PRO VASCULAR SURGERY PROCEDURE UNLIST Left 11/20/2015 EXCISION VEIN FROM HAND performed by Camilo Ireland MD at [facility] MAIN OR ??? US RENAL TRANSPLANT BIOPSY 12/31/2010 ??? US RENAL TRANSPLANT RIGHT Right 06/04/2018 US Renal Transplant Right 06/04/2018 [facility] RAD ULTRASOUND Family History Problem Relation Age of Onset ??? Pancreatitis Father Social History Social History Narrative Not on file Living in a rehab currently. Outpatient medications: No current facility-administered medications on file prior to encounter. Current Outpatient Medications on File Prior to Encounter Medication Sig Dispense Refill ??? sodium bicarbonate 650 mg Tablet Take 1 tablet by mouth 3 times daily. 90 tablet 11 ??? losartan (COZAAR) 100 mg Tablet Take 2 tablets by mouth every morning. 60 tablet 11 ??? hydrALAZINE (APRESOLINE) 25 mg Tablet Take 5 tablets by mouth 3 times daily. 450 tablet 11 ??? furosemide (LASIX) 40 mg Tablet Take 1 tablet by mouth 3 times daily. 90 tablet 11 ??? calciTRIol (ROCALTROL) 0.5 mcg Capsule Take 1 capsule by mouth daily. 30 capsule 11 ??? allopurinol (ZYLOPRIM) 100 mg Tablet Take 1 tablet by mouth daily. 30 tablet 11 ??? dilTIAZem (CARTIA XT) 120 mg Capsule, Sust. Release 24 hr Take 1 capsule by mouth daily. 90 capsule 3 ??? calcium carbonate 648 mg calcium Tablet Take 1 tablet by mouth 3 times daily. Take on empty stomach. 90 tablet 11 ??? acetaminophen (TYLENOL) 500 mg Tablet Take 2 tablets by mouth every 6 hours. 30 tablet 1 ??? levETIRAcetam (KEPPRA) 500 mg Tablet Take 500 mg by mouth 2 times daily. Take 500 mg every morning and 250 mg every morning. ??? amLODIPine (NORVASC) 2.5 mg Tablet Take 2.5 mg by mouth daily. ??? tacrolimus (PROGRAF) 1 mg Capsule Take 1 capsule by mouth nightly. ??? tacrolimus (PROGRAF) 0.5 mg Capsule Take 3 capsules by mouth daily. ??? metoprolol tartrate (LOPRESSOR) 50 mg Tablet Take 1 tablet by mouth 3 times daily. ??? pantoprazole (PROTONIX) 20 mg Tablet, Delayed Release (E.C.) Take 1 tablet by mouth 2 times daily. 180 tablet 3 ??? mycophenolate (CELLCEPT) 250 mg Capsule Take 1 capsule by mouth 2 times daily. Kidney Transplant Z94.0. Transplant Date; 11-26-02 180 capsule 11 ??? multivitamin Capsule Take 1 capsule by mouth daily. ??? levothyroxine (SYNTHROID) 100 mcg Tablet Take 100 mcg by mouth daily. MEDICATIONS: Allergies Allergen Reactions ??? Benazepril Hcl ??? Codeine Other (See Comments) Patient does not know reaction ??? Hydrochlorothiazide ??? Pollen Extracts Sneezing/runny nose ROS: Constitutional - No fevers, chills, weight loss Skin - No rash ,have itchy skin HEENT - No headaches, visual changes Resp - No cough, have exertional shortness of breath CV - No chest pain,have worsening leg swellings, have mild difficulty breathing lying flat GI - No nausea, vomiting,change in bowel habits/abdominal pain - Decreased urine output. No pain urinating or blood in urine. Neuro -Generalized weakness. No numbness/ tingling in extremities. PHYSICAL EXAM: Last value Range last 24 hrs Temperature Temp: 36.4 ??C (97.5 ??F) Temp: [36.4 ??C (97.5 ??F)] Heart Rate Heart Rate: 58 Heart Rate: [55-61] Blood Pressure BP: (!) 188/113 BP: (174-199)/(113-115) Respiratory Rate Resp: 14 Resp: [12-20] SpO2 SpO2: 92 % SpO2: [90 %-93 %] Appearance - Alert, sitting in bed Skin - No exanthem. HEENT - Sclera white. Mucous membranes moist. Chest: . Lungs have bilateral wheezes with crept's extending up to interscapular areas. Heart - S1 and S2 clear w/o murmur, gallop, or rub. JVP not elevated. Abd - Soft. + BS. No bruit. Non tender. ,significant pitting sacral edema. Ext - left arm with prior surgical berry of fistula and was much swollen than right arm Warm. No cyanosis. +3 bilateral dependent edema. Neuro -Mild tremors. STUDIES: Labs: CBC: Recent Labs 07/29/18213507/19/18 0941 06/07/18 1042 WBC 3.8* 4.2 4.2 HGB 9.2* 8.8* 8.6* PLATELET 105* 145 110* Chemistry: Recent Labs 07/29/186 07/19/18 0941 06/07/18 1042 NA 150* 148* 148* 141 141 K 4.9 5.0 5.0 4.7 4.7 CL 112* 112* 112* 110* 110* CO2 18* 18* 18* 17* 17* BUN 94* 72* 72* 50* 50* CREATININE 9.93* 7.40* 7.40* 3.64* 3.64* GLUCOSE 123 105 105 100 100 Recent Labs 07/29/18213507/19/18 0941 06/07/18 1042 CALCIUM 8.1* 7.7* 7.7* 7.9* 7.9* MAGNESIUM 1.02 0.89 0.83 PHOS 7.5* 6.7* 5.3* LFT's: Recent Labs 07/19/18 0941 06/07/18 1042 05/25/18 0830 BILITOT 0.3 0.4 0.2 ALBUMIN 3.5 3.3 3.5 ALKPHOS 101 100 91 ALT 11 13 10 AST 18 19 17 IMPRESSION/ RECOMMENDATIONS: 1,Failed Transplant: - 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 - Recent worsening likely due to acute on chronic rejection vs prerenal with acute intravascularvolume depletion - His labs today is showing worsening kidney function along with metabolic acidosis and hypernatremia. 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 - Will get tunneled line by IR and initiate on dialysis tomorrow. - need to check prograf trough levels before restarting medication and continue with cellcept and will discuss with Dr rivera to taper his immunosuppression. -Strict Is and Os,daily weights -Avoid nephrotoxins like NSAID's and renally dose medications 2,Bone and Mineral Disease: Calcium levels are at goal but elevated phos levels due to renal failure.Will d/c calcitriol and add Tums as phos binder. 3,Accelerated hypertension: On hydralazine ,metoprolol , losartan and lasix at home ,will consider adding labetalol and amlodipine,hold losartan and monitor closely the pressures. 4,Metabolic acidosis: Have gap and non gap acidosis due to ongoing renal insufficiency. : 5,Hypernatremia -free water deficit of 3.5 lts decreased intake of free water due to altered hypothalamus sensitivity to osmolarity due to recent brain injury,unlikely DI as patient did not have water diuresis. Thanks for letting us participate in the care of this patient. Seen and Discussed w/ Dr.Graber Nichole Rodríguez MD Nephrology Fellow #[id number] Associated attestation - Gaby Mesa MD - 07/31/2018 5:24 PM EST Renal Attending Inpatient Consult We are asked by Dr Flynn to see Chritsy Ambrose in consultation regarding initiation of hemodialysis. Please see my consult note dated July 30. We will continue to follow. Thank you for involving us in the care of this patient * ED Triage - Blanca Machuca RN - 07/29/2018 7:24 PM EST Patient presents to the ED tonight at urging of Dr. Rivera for concern of possibly needed emergent dialysis. Patient denies any complaints at this time, vague with answers. Per chart patient with history of kidney transplant and papillary carcinoma. Has had worsening kidney function and creatinine is 11. Patient reports he is not currently undergoing dialysis. Patient with PEA arrest in March and fall with SDH in May. Patient slow to answer questions, taking some time to communicateanswers. Denies chest pain, shortness of breath. Is making urine. With history of brain injury but chart notes his mentation is worse than his baseline. PWD, NAD, RRR even and unlabored, speaking in full logical sentences. Ambulatory with steady gait. A+Ox4. documented in this encounter Plan of Treatment Scheduled Referrals Name Type Priority Associated Diagnoses Order Schedule Referral to Neurosurgery Outpatient Referral Routine SDH (subdural hematoma) Ordered: 2018 documented as of this encounter Procedures Procedure Name Priority Date/Time Associated Diagnosis Comments PTH Routine 2018 5:56 AM EST PHOSPHORUS Routine 2018 5:56 AM EST BASIC METABOLIC PANEL Routine 2018 5:56 AM EST BASIC METABOLIC PANEL Routine 08/06/2018 6:32 AM EST ZEEG AWAKE, ASLEEP, DROWSY Routine 08/05/2018 2:04 PM EST BASIC METABOLIC PANEL Routine 08/04/2018 4:34 AM EST HEMOGRAM STAT 08/03/2018 7:09 PM EST DIFFERENTIAL, AUTOMATED STAT 08/03/2018 7:09 PM EST APTT STAT 08/03/2018 7:09 PM EST PROTHROMBIN TIME STAT 08/03/2018 7:09 PM EST CBC (WITH DIFF) STAT 08/03/2018 7:09 PM EST BASIC METABOLIC PANEL STAT 08/03/2018 7:09 PM EST EKG 12-LEAD STAT 08/03/2018 7:06 PM EST Nonintractable epilepsy without status epilepticus, unspecified epilepsy type CT HEAD WO CONTRAST (GENERIC) STAT 08/03/2018 6:38 PM EST POCT GLUCOSE Routine 08/03/2018 6:11 PM EST PHOSPHORUS Routine 08/03/2018 4:02 AM EST BASIC METABOLIC PANEL Routine 08/03/2018 4:[address] HEAD WO CONTRAST (GENERIC) Routine 08/03/2018 3:17 AM EST EKG 12-LEAD Routine 08/02/2018 3:27 PM EST Acute kidney injury PHOSPHORUS Routine 08/02/2018 4:48 AM EST BASIC METABOLIC PANEL Routine 08/02/2018 4:48 AM EST PHOSPHORUS Routine 08/01/2018 4:35 AM EST BASIC METABOLIC PANEL Routine 08/01/2018 4:35 AM EST BASIC METABOLIC PANEL Routine 07/31/2018 8:13 AM EST IR DIALYSIS ACCESS - TUNNELED LINE STAT 07/30/2018 1:19 PM EST HEPATITIS B SURFACE ANTIGEN STAT 07/30/2018 8:17 AM EST XR CHEST PA AND LATERAL STAT 07/29/2018 10:35 PM EST HEMOGRAM STAT 07/29/2018 9:36 PM EST DIFFERENTIAL, AUTOMATED STAT 07/29/2018 9:36 PM EST GOLD TUBE HOLD STAT 07/29/2018 9:36 PM EST BLUE TUBE HOLD STAT 07/29/2018 9:36 PM EST CBC (WITH DIFF) STAT 07/29/2018 9:36 PM EST PHOSPHORUS STAT 07/29/2018 9:36 PM EST MAGNESIUM STAT 07/29/2018 9:36 PM EST BASIC METABOLIC PANEL STAT 07/29/2018 9:36 PM EST documented in this encounter Results * CT Head wo Contrast (Generic) (08/18/2018 3:10 PM EST) Anatomical Region Laterality Modality Head Computed Tomogra phy Impressions 08/18/2018 5:28 PM EST Heterogeneous attenuation of left extra-axial collection is slightly increased thickness suggestive interval hemorrhage into the resolving hematoma. Persistent mass effect on the adjacent brain parenchyma. Thank you for letting us participate in the care of this patient. For questions regarding this report, please contact the number below. ? Narrative 08/18/2018 5:28 PM EST EXAMINATION: CT HEAD WO CONTRAST (GENERIC) CLINICAL HISTORY: Left acute SDH follow-up at 4 weeks TECHNIQUE: CT Head was performed without contrast COMPARISON: CT head 08/03/2018 FINDINGS: Evolution of left-sided extra-axial collection which now demonstrates bicompartmental indication with hypoattenuation within a portion of the more relative hyperattenuation along the inside margin. There is mild mass effect on the underlying perirolandic region and left parietal lobe. No midline shift. The flores-white differentiation is preserved. The ventricles are unchanged in caliber and contour. Patchy white matter hypoattenuation is similar, likely reflecting chronic microangiopathy. Mild mucosal thickening in the alveolar recess of the left maxillary sinus. The remainder of the paranasal sinuses and mastoid air cells are clear. The visualized orbits are unremarkable in appearance. Procedure Note Marcia Mathew MD - 08/18/2018 EXAMINATION: CT HEAD WO CONTRAST (GENERIC) CLINICAL HISTORY: Left acute SDH follow-up at 4 weeks TECHNIQUE: CT Head was performed without contrast COMPARISON: CT head 08/03/2018 FINDINGS: Evolution of left-sided extra-axial collection which nowdemonstrates bicompartmental indication with hypoattenuation within a portion of themore relative hyperattenuation along the inside margin. There is mild masseffect on the underlying perirolandic region and left parietal lobe. No midlineshift. The flores-white differentiation is preserved. The ventricles are unchanged incaliber and contour. Patchy white matter hypoattenuation is similar, likelyreflecting chronic microangiopathy. Mild mucosal thickening in the alveolar recess ofthe left maxillary sinus. The remainder of the paranasal sinuses and mastoidair cells are clear. The visualized orbits are unremarkable in appearance. IMPRESSION Heterogeneous attenuation of left extra-axial collection is slightlyincreased thickness suggestive interval hemorrhage into the resolving hematoma.Persistent mass effect on the adjacent brain parenchyma. Thank you for letting us participate in the care of this patient. Forquestions regarding this report, please contact the number below. Dmitriy Hoffman APRN IMG CT ORDERABLES * Phosphorus (2018 5:56 AM EST) Phosphorus 3.1 2.5 - 4.5 mg/dL [facility] Blood specimen (specimen) 2018 5:56 AM EST 2018 6:28 AM EST Narrative Resulting Agency Comment Spec In Lab Erwin Dolan MD CHEMISTRY ORDERABLE S [facility] [place] [address] * (ABNORMAL) Basic Metabolic Panel (non-fasting) (2018 5:56 AM EST) Glucose 88 65 - 199 mg/dL [facility] Comment:Diabetes: >=200 mg/d L plus symptoms Blood Urea Nitrogen 27(H) 10 - 20 mg/dL [facility] Creatinine 4.69(H) 0.80 - 1.50 mg/dL [facility] Sodium 134(L) 135 - 145 mmol/L [facility] Potassium 4.0 3.5 - 5.0 mmol/L [facility] Comment: Please note: ??Patients with WBC >100,000 may have falsely elevated Potassium levels. ??For accurate Potassium quantification in these patients send serum separator tube (gold top) for subsequent determinations. ??Contact the Clinical Chemistry Laboratory if there are any questions. Chloride 98 98 - 107 mmol/L [facility] Carbon Dioxide 25 22 - 31 mmol/L [facility] Anion Gap 11 5 - 15 mmol/L [facility] Calcium 7.7(L) 8.5 - 10.5 mg/dL [facility] Est Glomerular Filtration Rate 13(L) >=60 mL/min/1. 73 m?? [facility] Comment: The eGFR was calculated using the CKD-EPI equation. As with all creatinine based estimates of kidney function, eGFR values calculated with the CKD-EPI equation are not accurate in patients with acute kidney failure, extremes of body mass or the acutely ill. http://[employer]/[facility]ALGATEnkf eGFR 15(L) >=60 mL/min/1. 73 m?? [facility] Comment: The eGFR was calculated using the CKD-EPI equation. As with all creatinine based estimates of kidney function, eGFR values calculated with the CKD-EPI equation are not accurate in patients with acute kidney failure, extremes of body mass or the acutely ill. http://[employer]/[facility] Blood specimen (specimen) 2018 5:56 AM EST 2018 6:28 AM EST Narrative Resulting Agency Comment Spec In Lab Erwin Dolan MD CHEMISTRY ORDERABLE S [facility] [place] [address] * (ABNORMAL) PTH (2018 5:56 AM EST) Parathyroid Hormone 122(H) 15 - 65 pg/mL [facility] Blood specimen (specimen) 2018 5:56 AM EST 2018 6:28 AM EST Narrative Resulting Agency Comment Spec In Lab Erwin Dolan MD CHEMISTRY ORDERABLE S [facility] [place] [address] * (ABNORMAL) Basic Metabolic Panel (non-fasting) (08/06/2018 6:32 AM EST) Glucose 90 65 - 199 mg/dL [facility] Comment:Diabetes: >=200 mg/d L plus symptoms Blood Urea Nitrogen 26(H) 10 - 20 mg/dL [facility] Creatinine 4.90(H) 0.80 - 1.50 mg/dL [facility] Sodium 141 135 - 145 mmol/L [facility] Potassium 3.7 3.5 - 5.0 mmol/L [facility] Comment: Please note: ??Patients with WBC >100,000 may have falsely elevated Potassium levels. ??For accurate Potassium quantification in these patients send serum separator tube (gold top) for subsequent determinations. ??Contact the Clinical Chemistry Laboratory if there are any questions. Chloride 99 98 - 107 mmol/L [facility] Carbon Dioxide 25 22 - 31 mmol/L [facility] Anion Gap 17(H) 5 - 15 mmol/L [facility] Calcium 7.6(L) 8.5 - 10.5 mg/dL [facility] Est Glomerular Filtration Rate 12(L) >=60 mL/min/1. 73 m?? [facility] Comment: The eGFR was calculated using the CKD-EPI equation. As with all creatinine based estimates of kidney function, eGFR values calculated with the CKD-EPI equation are not accurate in patients with acute kidney failure, extremes of body mass or the acutely ill. http://[employer]/[facility] eGFR 14(L) >=60 mL/min/1. 73 m?? [facility] Comment: The eGFR was calculated using the CKD-EPI equation. As with all creatinine based estimates of kidney function, eGFR values calculated with the CKD-EPI equation are not accurate in patients with acute kidney failure, extremes of body mass or the acutely ill. http://[employer]/DHMCnkf Blood specimen (specimen) 08/06/2018 6:32 AM EST 08/06/2018 7:02 AM EST Narrative Resulting Agency Comment Spec In Lab Sabrina Flynn III, MD CHEMISTRY ORDERABLES [facility] [place] [address] * EEG awake, asleep, drowsy, routine (08/05/2018 2:04 PM EST) Narrative Kurt Toribio MD - 08/05/2018 2:04 PM EST Kurt Toribio MD ? 08/09/2018 ??8:42 AM [facility] Department of Neurology Inpatient Routine EEG Report Name of the Patient: ??Christy Ambrose Date of : ?1960 Date of Service: ?08/05/2018 Referring physician: ?Raulito Paulino ?? BRIEF HISTORY: Christy Ambrose is a 57 y.o. 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 Course complicated by PEA arrest after bleeding from his fistula with seizure on 08/03. Neurology was consulted for stroke alert 08/03 for right hemibody weakness, aphasia post seizure. CTH repeat with stable SDH. MEDICATIONS: Current Facility-Administered Medications Medication Dose Route Frequency Provider Last Rate Last Dose ? ? levETIRAcetam (KEPPRA) tablet 500 mg ??500 mg Oral Nightly Flori Alvarez, EXTRACTIVE METALLURGIST ?? 500 mg at 08/04/182038 And ? ? levETIRAcetam (KEPPRA) tablet 500 mg ??500 mg Oral Daily Flori Alvarez APRN ?? 500 mg at 08/05/18 0837 ? ? tacrolimus (PROGRAF) capsule 1 mg ??1 mg Oral BID Sabrina Flynn III, MD ?? 1 mg at 08/05/18 0836 ? ? calcium carbonate (TUMS) chewable tablet 1,000 mg ??1,000 mg Oral TID WC Sabrina Flynn III, MD ?? 1,000 mg at 08/05/18 1129 ? ? hydrALAZINE (APRESOLINE) tablet 100 mg ??100 mg Oral TID Sabrina Flynn III, MD ?? 100 mg at 08/05/18 1301 ? ? metoprolol succinate (TOPROL-XL) XL tablet 200 mg ??200 mg Oral Nightly Sabrina Flynn III, MD ?? 200 mg at 08/04/182038 ? ? labetalol (NORMODYNE) tablet 100 mg ??100 mg Oral Q6H PRN Sabrina Flynn III, MD ?? 100 mg at 08/01/18 0857 ? ? losartan (COZAAR) tablet 100 mg ??100 mg Oral Daily Sabrina Flynn III, MD ?? 100 mg at 08/05/18 0836 ? ? allopurinol (ZYLOPRIM) tablet 100 mg ??100 mg Oral Daily Kurt Aguilar MD ?? 100 mg at 08/05/1836 ? ? dilTIAZem (Cardizem CD) ER capsule 120 mg ??120 mg Oral Daily Kurt Aguilar MD ?? 120 mg at 08/05/1836 ? ? levothyroxine (SYNTHROID) tablet 100 mcg ??100 mcg Oral QAM Kurt Aguilar MD ?? 100 mcg at 08/05/18 0728 ? ? pantoprazole (PROTONIX) tablet 20 mg ??20 mg Oral BID Kurt Aguilar MD ?? 20 mg at 08/05/18 0838 ? ? sodium chloride 0.9 % flush 5 mL ??5 mL Intravenous BID Kurt Aguilar MD ?? 5 mL at 08/05/18 0838 ? ? sodium chloride 0.9 % flush 5-20 mL ??5-20 mL Intravenous Q1 Min PRN Kurt Aguilar MD ? lidocaine (XYLOCAINE) 10 mg/mL (1 %) injection 3 mg ??0.3 mL Subcutaneous Once PRN Kurt Aguilar MD ? prochlorperazine (COMPAZINE) injection 10 mg ??10 mg Intravenous Q6H PRN Kurt Aguilar MD ?? 10 mg at 07/30/18 1837 ? ? acetaminophen (TYLENOL) tablet 650 mg ??650 mg Oral Q6H PRN Kutr Aguilar MD ?? 650 mg at 07/30/18 1738 ? ? senna-docusate (PERICOLACE) 8.6-50 mg per tablet 2 tablet ??2 tablet Oral BID PRN Kurt Aguilar MD ? amLODIPine (NORVASC) tablet 10 mg ??10 mg Oral Daily Kurt Aguilar MD ?? 10 mg at 08/05/18 0836 METHODS: A 21 channel digitized electroencephalogram was performed in the [facility]phys[facility]. The 10/20 international system of electrode placement was used and bipolar and referential electrode montages were recorded. ??In addition to EEG the patient was monitored for EKG and lateral/vertical eye movements. Video was recorded during the session. The duration of the recording was 30 minutes. AUTOMATIC COIL MACHINE OPERATOR'S REPORT:Performed by: CM Patient was not sleep deprived. Sleep was attained. Photic stimulation was performed. Hyperventilation was not performed. Effort was was not adequate. Movement and other artifact was not significant. Comments:pt cooperative ELECTROENCEPHALOGRAPHER'S REPORT: Background During the awake state with the eyes closed the background consisted of a moderate amplitude, 8 Hz posterior reactive rhythm that attenuated appropriately with eye opening. Beta activity was distributed diffusely with an anterior predominance. There was a normal anterior-posterior voltage gradient. With eye opening the background activity changed to a low voltage mixture of alpha, beta, and occasional theta range frequencies. There were no significant asymmetries of background activity noted. Sleep Sleep was not obtained Hyperventilation Hyperventilation resulted was not performed because patient has Hx of SAH and SDH Photic Stimulation Photic stimulation using a step-bianchi increase in photic frequency varying from 1-21 Hertz did not result in a driving response Abnormal EEG Activity Intermittent left hemispheric temporal predominant arrhythmic mixed theta-delta slowing. Independent right hemispheric temporal predominant arrhythmic mixed theta-delta slowing. There are occasional phase reversals in the anterior quadrant that are sharply countered. EKG EKG shows sinus rhythm with heart rate of 50-60. PRIOR EE04/09/2018- 24hr EEG INTERPRETATION Generalized slowing of background. CLINICAL CORRELATION This EEG is consistent with diffuse cerebral dysfunction of non-specific etiology. ??No seizures. INTERPRETATION: This EEG is abnormal during the awake state. Sleep was not obtained. Hyperventilation and photic stimulation did not result in aberrant activity. There is intermittent left hemisphere temporal predominant arhythmic mixed theta delta slowing. Independent right hemispheric temporal predominant arhythmic mixed theta delta slowing. There are occasional phase reversals in the anterior quadrant that are sharply countered with no epileptiform discharges. Indicates bilateral intermittent cerebral dysfunction. No seizures. Consistent with encephalopathy, non-specific as to etiology. CLINICAL CORRELATION: This is an abnormal EEG. There is independent intermittent slowing L>R throughout the study with occasionally sharply countered phase reversals in the right anterior quadrant. There are no epileptiform discharges or seizures captured during this EEG. If clinical suspicion for seizure is high, a longer study which captures sleep can increase sensitivity of this test. Please correlate clinically. I personally reviewed and interpreted the EEG in its entirety along with Dr. Kia Sky, neurology resident, and I agree with the above interpretation as documented. Kurt Toribio MD Attending Epileptologist CC: Carroll Fuentes DO Sabrina Flynn III, MD NEUROLOGY ORDERABLES * (ABNORMAL) Basic Metabolic Panel (non-fasting) (08/04/2018 4:34 AM EST) Glucose 91 65 - 199 mg/dL [facility] Comment:Diabetes: >=200 mg/d L plus symptoms Blood Urea Nitrogen 35(H) 10 - 20 mg/dL [facility] Creatinine 5.61(H) 0.80 - 1.50 mg/dL [facility] Sodium 138 135 - 145 mmol/L [facility] Potassium 4.1 3.5 - 5.0 mmol/L [facility] Comment: Please note: ??Patients with WBC >100,000 may have falsely elevated Potassium levels. ??For accurate Potassium quantification in these patients send serum separator tube (gold top) for subsequent determinations. ??Contact the Clinical Chemistry Laboratory if there are any questions. Chloride 101 98 - 107 mmol/L [facility] Carbon Dioxide 23 22 - 31 mmol/L [facility] Anion Gap 14 5 - 15 mmol/L [facility] Calcium 7.6(L) 8.5 - 10.5 mg/dL [facility] Est Glomerular Filtration Rate 10(L) >=60 mL/min/1. 73 m?? [facility] Comment: The eGFR was calculated using the CKD-EPI equation. As with all creatinine based estimates of kidney function, eGFR values calculated with the CKD-EPI equation are not accurate in patients with acute kidney failure, extremes of body mass or the acutely ill. http://[employer]/[facility]GATEnkf eGFR 12(L) >=60 mL/min/1. 73 m?? [facility] Comment: The eGFR was calculated using the CKD-EPI equation. As with all creatinine based estimates of kidney function, eGFR values calculated with the CKD-EPI equation are not accurate in patients with acute kidney failure, extremes of body mass or the acutely ill. http://[employer]/[facility]GAT[facility]kf Blood specimen (specimen) 08/04/2018 4:34 AM EST 08/04/2018 5:17 AM EST Narrative Resulting Agency Comment Spec In Lab Sabrina Flynn III, MD CHEMISTRY ORDERABLES [facility] [place] [address] * Differential, Automated (08/03/2018 7:09 PM EST) Neutrophil % 64.6 % [facility] Neutrophil Absolute 3.02 1.70 - 6.10 x10(3)/[facility] LABORATORY Lymph % 20.5 % [facility] Lymphocytes Abs 1.0 0.9 - 3.2 x10(3)/[facility] LABORATORY Monocyte % 12.0 % [facility] Monocyte Abs 0.6 0.3 - 0.9 x10(3)/[facility] LABORATORY Eos % 2.1 % [facility] Eosinophils Abs 0.1 0.0 - 0.4 x10(3)/[facility] LABORATORY Basophil % 0.4 % [facility] Baso Absolute 0.0 0.0 - 0.1 x10(3)/[facility] LABORATORY Immature Gran % 0.40 % [facility] Comment: Immature granulocytes(IG's)percentage and absolute count will include metamyelocytes, myelocytes, and promyelocytes. Blood smears from CBCs yielding IG's will be scanned manually for concordance. If this scan disagrees with the automated IG or if promyelocytes are noted, a manual differential will be performed. Immature Gran Absolute 0.02 0.00 - 0.04 x10(3)/[facility] LABORATORY Blood specimen (specimen) 08/03/2018 7:09 PM EST 08/03/2018 7:17 PM EST Narrative Resulting Agency Comment Spec In Lab John Rose MD HEMATOLOGY ORDERABLE S [facility] [place] [address] * (ABNORMAL) Hemogram (08/03/2018 7:09 PM EST) White Blood Cell 4.7 4.0 - 9.5 x10(3)/mc L [facility] Red Blood Cell 3.31(L) 4.58 - 5.54 x10(6)/mc L [facility] Hemoglobin 9.2(L) 13.7 - 16.5 gm/dL [facility] Hematocrit 28.6(L) 40.5 - 48.5 % [facility] Mean Cell Volume 86.4 82.9 - 93.1 fL [facility] Mean Cell Hemoglobin 27.8 27.5 - 32.1 pg [facility] Mean Cell Hemoglobin Concentration 32.2 32.0 - 35.7 gm/dL [facility] Platelet 149 145 - 357 x10(3)/mc L [facility] RDW Standard Deviation 52.2(H) 36.0 - 45.0 fL [facility] RDW coefficient of variation 17.0(H) 11.4 - 13.8 % [facility] Mean Platelet Volume 9.4 7.6 - 12.9 fL [facility] NRBC% auto 0.0 % [facility] NRBC Absolute 0.000 0.000 - 0.000 x10(3)/mc L [facility] Blood specimen (specimen) 08/03/2018 7:09 PM EST 08/03/2018 7:17 PM EST Narrative Resulting Agency Comment Spec In Lab John Rose MD HEMATOLOGY ORDERABLE S [facility] [place] [address] * (ABNORMAL) Basic Metabolic Panel (non-fasting) (08/03/2018 7:09 PM EST) Glucose 131 65 - 199 mg/dL [facility] Comment:Diabetes: >=200 mg/d L plus symptoms Blood Urea Nitrogen 33(H) 10 - 20 mg/dL [facility] Creatinine 5.35(H) 0.80 - 1.50 mg/dL [facility] Sodium 137 135 - 145 mmol/L [facility] Potassium 4.7 3.5 - 5.0 mmol/L [facility] Comment: Please note: ??Patients with WBC >100,000 may have falsely elevated Potassium levels. ??For accurate Potassium quantification in these patients send serum separator tube (gold top) for subsequent determinations. ??Contact the Clinical Chemistry Laboratory if there are any questions. Chloride 99 98 - 107 mmol/L [facility] Carbon Dioxide 22 22 - 31 mmol/L [facility] Anion Gap 16(H) 5 - 15 mmol/L [facility] Calcium 8.0(L) 8.5 - 10.5 mg/dL [facility] Est Glomerular Filtration Rate 11(L) >=60 mL/min/1. 73 m?? [facility] Comment: The eGFR was calculated using the CKD-EPI equation. As with all creatinine based estimates of kidney function, eGFR values calculated with the CKD-EPI equation are not accurate in patients with acute kidney failure, extremes of body mass or the acutely ill. http://[employer]/[facility]GATEnk eGFR 13(L) >=60 mL/min/1. 73 m?? [facility] Comment: The eGFR was calculated using the CKD-EPI equation. As with all creatinine based estimates of kidney function, eGFR values calculated with the CKD-EPI equation are not accurate in patients with acute kidney failure, extremes of body mass or the acutely ill. http://[employer]/[facility]GATEnkf Blood specimen (specimen) 08/03/2018 7:09 PM EST 08/03/2018 7:17 PM EST Narrative Resulting Agency Comment Spec In Lab Sabrina Flynn III, MD CHEMISTRY ORDERABLES [facility] [place] [address] * (ABNORMAL) APTT (08/03/2018 7:09 PM EST) Partial Thromboplastin Time <20(L) 25 - 37 sec [facility] Comment: Decreased clotting times may be caused by improper phlebotomy technique. The PTT is NOT appropriate for heparin monitoring. Use the Anti-Xa level for heparin monitoring (HEP UFH) or LMWH monitoring (HEP LMW). A PTT less than 37 seconds generally indicates adequate hemostasis. Blood specimen (specimen) 08/03/2018 7:09 PM EST 08/03/2018 7:17 PM EST Narrative Resulting Agency Comment Spec In Lab Sabrina Flynn III, MD HEMATOLOGY ORDERABLE S Performing Organization Address [facility] Co de Phone Number [facility] [place] [address] * Prothrombin Time (08/03/2018 7:09 PM EST) Prothrombin Time 10.7 9.4 - 12.5 sec [facility] International Normalization Ratio 0.9 [facility] Comment: An INR <2.0 indicates adequate procoagulant activity for hemostasis in most patients without underlying bleeding disorders, though the INR may not adequately reflect hemostatic capacity in patients with liver disease and synthetic impairment. The recommended target INR range for therapeutic anticoagulation is 2.0 ? 3.0 for most applications, though lower and higher ranges may be appropriate depending on clinical circumstances. Blood specimen (specimen) 08/03/2018 7:09 PM EST 08/03/2018 7:17 PM EST Narrative Resulting Agency Comment Spec In Lab Sabrina Flynn III, MD HEMATOLOGY ORDERABLE S Performing Organization Address [facility] de Phone Number [facility] [place] [address] * EKG 12 Lead (08/03/2018 7:06 PM EST) Ventricular rate 59 BPM MUSE SYSTEM Atrial Rate 59 BPM MUSE SYSTEM P-R Interval 148 ms MUSE SYSTEM QRS Duration 90 ms MUSE SYSTEM Q-T Interval 466 ms MUSE SYSTEM QTC Calculated (Bezet) 461 ms MUSE SYSTEM Calculated P Font[place] 61 degrees MUSE SYSTEM Calculated R [place] 56 degrees MUSE SYSTEM Calculated T Font[place] 32 degrees MUSE SYSTEM INTERPRETATION Sinus bradycardia Otherwise normal ECG When compared with ECG of 02-AUG-2018 15:27, Nonspecific T wave abnormality no longer evident in Anterior leads Confirmed by MD DALLAS, OLVIN ([id number]) on 08/04/2018 5:02:20 AM MUSE SYSTEM 08/03/2018 7:06 PM EST 08/04/2018 5:02 AM EST Sabrina Flynn III, MD ECG ORDERABLES Performing Organization Address [facility]/ZIP Co de Phone Number MUSE SYSTEM * CT Head wo Contrast (Generic) (08/03/2018 6:38 PM EST) Anatomical Region Laterality Modality Head Computed Tomogra phy Impressions 08/03/2018 7:11 PM EST 1. ??Unchanged size of the mixed attenuation left subdural hematoma. 2. ??Unchanged local mass effect. 3. ??No new areas of acute intracranial hemorrhage. Preliminary report signed by: Tristin Farnsworth at 08/03/2018 6:55 PM I have personally reviewed the image(s) and the residents interpretation and agree with the findings, Gordon Wu at 08/03/2018 7:11 PM Thank you for letting us participate in the care of this patient. For questions regarding this report, please contact the number below. ? Narrative 08/03/2018 7:11 PM EST EXAMINATION: CT HEAD WO CONTRAST (GENERIC) CLINICAL HISTORY: Stroke Alert TECHNIQUE: CT head performed without intravenous contrast administration. COMPARISON: Head CT 08/03/2017 at 0313 hours. Brain MRI 04/07/2018 FINDINGS: Ventricles and basal cisterns are unchanged in size and are patent. Unchanged size of the mixed attenuation left subdural hematoma along the left cerebral convexity (coronal series 5 image 52). This collection measures 11 mm in maximal thickness with unchanged mass effect upon the superior left frontal and parietal lobes. No midline shift. No new sites of acute intracranial hemorrhage. Flores matter white matter differentiation is well preserved, no evidence of acute cortical infarction. Unchanged low-attenuation lesions in the periventricular white matter of both cerebral hemispheres, a nonspecific finding, most commonly seen in the context small vessel ischemic changes. Unchanged low-attenuation lesion in the anterior horn of the left temporal lobe consistent with encephalomalacia. Unchanged punctate calcifications along the course of the right A1 branch of the anterior cerebral artery. The orbits are normal. The paranasal sinuses and mastoid air cells are clear. Asymmetric pneumatization of the left petrous apex, a normal anatomic variant. No calvarial fracture or suspicious osseous lesions. No extra calvarial hematoma. Procedure Note Gordon Wu MD - 08/03/2018 EXAMINATION: CT HEAD WO CONTRAST (GENERIC) CLINICAL HISTORY: Stroke Alert TECHNIQUE: CT head performed without intravenous contrast administration. COMPARISON: Head CT 08/03/2017 at 0313 hours. Brain MRI 04/07/2018 FINDINGS: Ventricles and basal cisterns are unchanged in size and are patent.Unchanged size of the mixed attenuation left subdural hematoma along the leftcerebral convexity (coronal series 5 image 52). This collection measures 11 mm inmaximal thickness with unchanged mass effect upon the superior left frontal andparietal lobes. No midline shift. No new sites of acute intracranial hemorrhage. Flores matter white matter differentiation is well preserved, no evidence of acute corticalinfarction. Unchanged low-attenuation lesions in the periventricular white matter ofboth cerebral hemispheres, a nonspecific finding, most commonly seen in thecontext small vessel ischemic changes. Unchanged low-attenuation lesion in theanterior horn of the left temporal lobe consistent with encephalomalacia.Unchanged punctate calcifications along the course of the right A1 branch of theanterior cerebral artery. The orbits are normal. The paranasal sinuses and mastoidair cells are clear. Asymmetric pneumatization of the left petrous apex, anormal anatomic variant. No calvarial fracture or suspicious osseous lesions. Noextra calvarial hematoma. IMPRESSION 1. Unchanged size of the mixed attenuation left subdural hematoma. 2. Unchanged local mass effect. 3. No new areas of acute intracranial hemorrhage. Preliminary report signed by: Tristin Farnsworth at 08/03/2018 6:55 PM I have personally reviewed the image(s) and the residents interpretationand agree with the findings, Gordon Wu at 08/03/2018 7:11 PM Thank you for letting us participate in the care of this patient. Forquestions regarding this report, please contact the number below. Sabrina Flynn III, MD IMG CT ORDERABLES * POCT Glucose (08/03/2018 6:11 PM EST) Glucose, POC 153 65 - 199 mg/dL [facility] Comment: Supplemental ranges: <140 mg/dL before meals <180 mg/dL all other times of the day Blood specimen (specimen) 08/03/2018 6:11 PM EST 08/03/2018 6:11 PM EST Sabrina Flynn III, MD POINT OF CARE TEST O RDERABLES Performing Organization Address [facility]/ZIP Co de Phone Number [facility] [place] [address] * Phosphorus (08/03/2018 4:02 AM EST) [facility] Phosphorus 3.9 2.5 - 4.5 mg/dL [facility] Blood specimen (specimen) 08/03/2018 4:02 AM EST 08/03/2018 4:43 AM EST Narrative Resulting Agency Comment Spec In Lab Sabrina Flynn III, MD CHEMISTRY ORDERABLES Performing Organization Address [facility] Co de Phone Number [facility] [place] [address] * (ABNORMAL) Basic Metabolic Panel (non-fasting) (08/03/2018 4:02 AM EST) Glucose 92 65 - 199 mg/dL [facility] Comment:Diabetes: >=200 mg/d L plus symptoms Blood Urea Nitrogen 29(H) 10 - 20 mg/dL [facility] Comment:delta result recheck ed-KLA Creatinine 4.70(H) 0.80 - 1.50 mg/dL [facility] Comment:delta result recheck ed-KLA Sodium 139 135 - 145 mmol/L [facility] Potassium 4.0 3.5 - 5.0 mmol/L [facility] Comment: Please note: ??Patients with WBC >100,000 may have falsely elevated Potassium levels. ??For accurate Potassium quantification in these patients send serum separator tube (gold top) for subsequent determinations. ??Contact the Clinical Chemistry Laboratory if there are any questions. Chloride 102 98 - 107 mmol/L [facility] Carbon Dioxide 24 22 - 31 mmol/L [facility] Anion Gap 13 5 - 15 mmol/L [facility] Calcium 7.7(L) 8.5 - 10.5 mg/dL [facility] Est Glomerular Filtration Rate 13(L) >=60 mL/min/1. 73 m?? [facility] Comment: The eGFR was calculated using the CKD-EPI equation. As with all creatinine based estimates of kidney function, eGFR values calculated with the CKD-EPI equation are not accurate in patients with acute kidney failure, extremes of body mass or the acutely ill. http://[employer]/[facility]GATEnkf eGFR 15(L) >=60 mL/min/1. 73 m?? [facility] Comment: The eGFR was calculated using the CKD-EPI equation. As with all creatinine based estimates of kidney function, eGFR values calculated with the CKD-EPI equation are not accurate in patients with acute kidney failure, extremes of body mass or the acutely ill. http://[employer]/[facility]f Blood specimen (specimen) 08/03/2018 4:02 AM EST 08/03/2018 4:43 AM EST Narrative Resulting Agency Comment Spec In Lab Sabrina Flynn III, MD CHEMISTRY ORDERABLES [facility] [place] [address] * CT Head wo Contrast (Generic) (08/03/2018 3:17 AM EST) Anatomical Region Laterality Modality Head Computed Tomogra phy Impressions 08/03/2018 5:21 AM EST Unchanged size of the acute on chronic subdural hemorrhage along the left cerebral convexity. Thank you for letting us participate in the care of this patient. For questions regarding this report, please contact the number below. ? Narrative 08/03/2018 5:21 AM EST EXAMINATION: CT HEAD WO CONTRAST (GENERIC) CLINICAL HISTORY: L Bart, interval scan TECHNIQUE: CT head performed without intravenous contrast administration. COMPARISON: Prior CTs, most recent from August 01, 2018 FINDINGS: There is been no interval change in size of the acute on chronic subdural hemorrhage layering along the left cerebral convexity. Overall size is stable at 14 mm, unchanged. There is stable minimal local mass effect on the adjacent posterior frontal and anterior parietal sulci. No ventricular effacement or midline shift. Similar pattern of generalized parenchymal volume loss with mildly prominent cerebral sulci and ex vacuo dilation of the lateral ventricles. Confluent periventricular white matter hypoattenuation is again noted. Flores-white differentiation is preserved. Basal cisterns are patent. Procedure Note Savanna Starr MD - 08/03/2018 EXAMINATION: CT HEAD WO CONTRAST (GENERIC) CLINICAL HISTORY: John Arriaga, interval scan TECHNIQUE: CT head performed without intravenous contrast administration. COMPARISON: Prior CTs, most recent from August 01, 2018 FINDINGS: There is been no interval change in size of the acute on chronicsubdural hemorrhage layering along the left cerebral convexity. Overall size isstable at 14 mm, unchanged. There is stable minimal local mass effect on theadjacent posterior frontal and anterior parietal sulci. No ventricular effacementor midline shift. Similar pattern of generalized parenchymal volume losswith mildly prominent cerebral sulci and ex vacuo dilation of the lateralventricles. Confluent periventricular white matter hypoattenuation is again noted. Flores-white differentiation is preserved. Basal cisterns are patent. IMPRESSION Unchanged size of the acute on chronic subdural hemorrhage along theleft cerebral convexity. Thank you for letting us participate in the care of this patient. Forquestions regarding this report, please contact the number below. Sabrina Flynn III, MD IMG CT ORDERABLES * EKG 12 Lead (08/02/2018 3:27 PM EST) Ventricular rate 64 BPM MUSE SYSTEM Atrial Rate 64 BPM MUSE SYSTEM P-R Interval 138 ms MUSE SYSTEM QRS Duration 92 ms MUSE SYSTEM Q-T Interval 480 ms MUSE SYSTEM QTC Calculated (Bezet) 495 ms MUSE SYSTEM Calculated P Fontana 51 degrees MUSE SYSTEM Calculated R [place] 38 degrees MUSE SYSTEM Calculated T Font[place] 4 degrees MUSE SYSTEM INTERPRETATION Normal sinus rhythm Nonspecific ST and T wave abnormality Prolonged QT Abnormal ECG When compared with ECG of 02-JUN-2018 16:57, Nonspecific T wave abnormality now evident in Inferior leads Nonspecific T wave abnormality, worse in Anterior leads Confirmed by MD HAYNES ALAN ([id number]) on 08/03/2018 8:56:48 AM MUSE SYSTEM 08/02/2018 3:27 PM EST 08/03/2018 8:56 AM EST Sabrina Flynn III, MD ECG ORDERABLES Performing Organization Address City/[facility] Co de Phone Number MUSE SYSTEM * (ABNORMAL) Phosphorus (08/02/2018 4:48 AM EST) Phosphorus 5.3(H) 2.5 - 4.5 mg/dL [facility] Blood specimen (specimen) 08/02/2018 4:48 AM EST 08/02/2018 5:12 AM EST Narrative Resulting Agency Comment Spec In Lab Sabrina Flynn III, MD CHEMISTRY ORDERABLES [facility] [place] [address] * (ABNORMAL) Basic Metabolic Panel (non-fasting) (08/02/2018 4:48 AM EST) Glucose 92 65 - 199 mg/dL [facility] Comment:Diabetes: >=200 mg/d L plus symptoms Blood Urea Nitrogen 56(H) 10 - 20 mg/dL [facility] Creatinine 6.95(H) 0.80 - 1.50 mg/dL [facility] Comment:delta result recheck ed-KLA Sodium 142 135 - 145 mmol/L [facility] Potassium 4.8 3.5 - 5.0 mmol/L [facility] Comment: Please note: ??Patients with WBC >100,000 may have falsely elevated Potassium levels. ??For accurate Potassium quantification in these patients send serum separator tube (gold top) for subsequent determinations. ??Contact the Clinical Chemistry Laboratory if there are any questions. Chloride 106 98 - 107 mmol/L [facility] Carbon Dioxide 22 22 - 31 mmol/L [facility] Anion Gap 14 5 - 15 mmol/L [facility] Calcium 7.2(L) 8.5 - 10.5 mg/dL [facility] Est Glomerular Filtration Rate 8(L) >=60 mL/min/1. 73 m?? [facility] Comment: The eGFR was calculated using the CKD-EPI equation. As with all creatinine based estimates of kidney function, eGFR values calculated with the CKD-EPI equation are not accurate in patients with acute kidney failure, extremes of body mass or the acutely ill. http://[employer]/[facility] eGFR 9(L) >=60 mL/min/1. 73 m?? [facility] Comment: The eGFR was calculated using the CKD-EPI equation. As with all creatinine based estimates of kidney function, eGFR values calculated with the CKD-EPI equation are not accurate in patients with acute kidney failure, extremes of body mass or the acutely ill. http://[employer]/[facility] Blood specimen (specimen) 08/02/2018 4:48 AM EST 08/02/2018 5:12 AM EST Narrative Resulting Agency Comment Spec In Lab Sabrina Flynn III, MD CHEMISTRY ORDERABLES Performing Organization Address City/[facility]/ZIP Co de Phone Number [facility] [place] [address] * (ABNORMAL) Phosphorus (08/01/2018 4:35 AM EST) Phosphorus 6.7(H) 2.5 - 4.5 mg/dL [facility] Blood specimen (specimen) 08/01/2018 4:35 AM EST 08/01/2018 4:44 AM EST Narrative Resulting Agency Comment Spec In Lab Sabrina Flynn III, MD CHEMISTRY ORDERABLES Performing Organization Address [facility] Co de Phone Number [facility] [place] [address] * (ABNORMAL) Basic Metabolic Panel (non-fasting) (08/01/2018 4:35 AM EST) Glucose 99 65 - 199 mg/dL [facility] Comment:Diabetes: >=200 mg/d L plus symptoms Blood Urea Nitrogen 80(H) 10 - 20 mg/dL [facility] Creatinine 9.31(H) 0.80 - 1.50 mg/dL [facility] Sodium 142 135 - 145 mmol/L [facility] Potassium 4.4 3.5 - 5.0 mmol/L [facility] Comment: Please note: ??Patients with WBC >100,000 may have falsely elevated Potassium levels. ??For accurate Potassium quantification in these patients send serum separator tube (gold top) for subsequent determinations. ??Contact the Clinical Chemistry Laboratory if there are any questions. Chloride 106 98 - 107 mmol/L [facility] Carbon Dioxide 19(L) 22 - 31 mmol/L [facility] Anion Gap 17(H) 5 - 15 mmol/L [facility] Calcium 7.3(L) 8.5 - 10.5 mg/dL [facility] Est Glomerular Filtration Rate 6(L) >=60 mL/min/1. 73 m?? [facility] Comment: The eGFR was calculated using the CKD-EPI equation. As with all creatinine based estimates of kidney function, eGFR values calculated with the CKD-EPI equation are not accurate in patients with acute kidney failure, extremes of body mass or the acutely ill. http://[employer]/[facility]GATEnkf eGFR 7(L) >=60 mL/min/1. 73 m?? [facility] Comment: The eGFR was calculated using the CKD-EPI equation. As with all creatinine based estimates of kidney function, eGFR values calculated with the CKD-EPI equation are not accurate in patients with acute kidney failure, extremes of body mass or the acutely ill. http://[employer]/[facility]GAT[facility] Blood specimen (specimen) 08/01/2018 4:35 AM EST 08/01/2018 4:44 AM EST Narrative Resulting Agency Comment Spec In Lab Sabrina Flynn III, MD CHEMISTRY ORDERABLES [facility] [place] [address] * (ABNORMAL) Basic Metabolic Panel (non-fasting) (07/31/2018 8:13 AM EST) Glucose 111 65 - 199 mg/dL [facility] Comment:Diabetes: >=200 mg/d L plus symptoms Blood Urea Nitrogen 76(H) 10 - 20 mg/dL [facility] Creatinine 8.91(H) 0.80 - 1.50 mg/dL [facility] Comment:result rechecked-williams Sodium 147(H) 135 - 145 mmol/L [facility] Potassium 4.9 3.5 - 5.0 mmol/L [facility] Comment: Please note: ??Patients with WBC >100,000 may have falsely elevated Potassium levels. ??For accurate Potassium quantification in these patients send serum separator tube (gold top) for subsequent determinations. ??Contact the Clinical Chemistry Laboratory if there are any questions. Chloride 107 98 - 107 mmol/L [facility] Carbon Dioxide 17(L) 22 - 31 mmol/L [facility] Anion Gap 23(H) 5 - 15 mmol/L [facility] Calcium 8.0(L) 8.5 - 10.5 mg/dL [facility] Est Glomerular Filtration Rate 6(L) >=60 mL/min/1. 73 m?? [facility] Comment: The eGFR was calculated using the CKD-EPI equation. As with all creatinine based estimates of kidney function, eGFR values calculated with the CKD-EPI equation are not accurate in patients with acute kidney failure, extremes of body mass or the acutely ill. http://[employer]/[facility]GATEnkf eGFR 7(L) >=60 mL/min/1. 73 m?? [facility] Comment: The eGFR was calculated using the CKD-EPI equation. As with all creatinine based estimates of kidney function, eGFR values calculated with the CKD-EPI equation are not accurate in patients with acute kidney failure, extremes of body mass or the acutely ill. http://[employer]/[facility] Blood specimen (specimen) 07/31/2018 8:13 AM EST 07/31/2018 8:17 AM EST Narrative Resulting Agency Comment Spec In Lab Sabrina Flynn III, MD CHEMISTRY ORDERABLES Performing Organization Address City/State/[facility] Co de Phone Number [facility] [place] [address] * IR Dialysis Access - Tunneled Line (07/30/2018 1:19 PM EST) Anatomical Region Laterality Modality Abdomen X-Ray Angiograph y Impressions 07/30/2018 1:28 PM EST Insertion of right-sided tunneled dialysis catheter, with tip in the expected location of the cavoatrial junction. Plan: The catheter may be used immediately. PROCEDURE SUMMARY: - Venous access with ultrasound guidance - Tunneled dialysis catheter insertion with fluoroscopic guidance - Additional procedure(s): None PROCEDURE DETAILS: Pre-procedure History and imaging of central venous access reviewed (QCDR): Yes Consent: Informed consent for the procedure including risks, benefits and alternatives was obtained and time-out was performed prior to the procedure. Preparation (MIPS): The site was prepared and draped using all elements of maximal sterile barrier technique including sterile gloves, sterile gown, cap, mask, large sterile sheet, sterile ultrasound probe cover, hand hygiene and cutaneous antisepsis with 2% chlorhexidine. Medical reason for site preparation exception (MIPS): Not applicable Anesthesia/sedation Level of anesthesia/sedation: No sedation Anesthesia/sedation administered by: Not applicable Total intra-service sedation time (minutes): Not applicable Access Local anesthesia was administered. The vessel was sonographically evaluated and determined to be patent. Real time ultrasound was used to visualize needle entry into the vessel and a permanent image was stored. Vein accessed (QCDR): External jugular vein Internal jugular vein patency (QCDR): The upper internal jugular vein was patent but becomes occluded above the level of the clavicle with collateral venous drainage to thyroid veins and subsequently the external jugular vein Access technique: Micropuncture set with 21 gauge needle Venography Indication for venography: Not performed Catheter tip position for venography: Not applicable Findings: Not applicable Catheter placement An incision was made near the venous access site and the catheter was tunneled subcutaneously to the venous access site. The catheter was advanced via a peel-away sheath into the vein under fluoroscopic guidance. Catheter tip location was fluoroscopically verified and a permanent image was stored. Catheter placed: [employer] REF HFS 28 Catheter cuff-to-tip length (cm): 23 Catheter tip position: 2.5 vertebral body units (VBUs) below the nina. Unique Device Identifier (ERNESTO): Not available Catheter flush: Heparin (100 units/mL) Closure A sterile dressing was applied. Access site closure technique: Tissue adhesive Catheter securement technique: Non-absorbable suture Contrast Contrast agent: None Contrast volume (mL): 0 Radiation Dose Fluoroscopy time (minutes): 0.2 ?? Additional Details Additional description of procedure: None Equipment details: None Specimens removed: None Estimated blood loss (mL): Less than 10 Standardized report: [email or web address] Attestation Signer name: Walt Delia I attest that I performed the procedure. I reviewed the stored images and agree with the report as written. Thank you for letting us participate in the care of this patient. For questions regarding this report, please contact the number below. ? Narrative 07/30/2018 1:28 PM EST PROCEDURE: Tunneled dialysis catheter placement Procedural Personnel Attending physician(s): Walt Lin MD Fellow physician(s): None Resident physician(s): None Advanced practice provider(s): None Pre-procedure diagnosis: IgA nephropathy, ESRD now requiring HD Post-procedure diagnosis: Same Indication (QCDR): Performance of hemodialysis Additional clinical history: None Complications: No immediate complications. Procedure Note Walt Lin MD - 07/30/2018 PROCEDURE: Tunneled dialysis catheter placement Procedural Personnel Attending physician(s): Walt Lin MD Fellow physician(s): None Resident physician(s): None Advanced practice provider(s): None Pre-procedure diagnosis: IgA nephropathy, ESRD now requiring HD Post-procedure diagnosis: Same Indication (QCDR): Performance of hemodialysis Additional clinical history: None Complications: No immediate complications. IMPRESSION Insertion of right-sided tunneled dialysis catheter, with tip in theexpected location of the cavoatrial junction. Plan: The catheter may be used immediately. PROCEDURE SUMMARY: - Venous access with ultrasound guidance - Tunneled dialysis catheter insertion with fluoroscopic guidance - Additional procedure(s): None PROCEDURE DETAILS: Pre-procedure History and imaging of central venous access reviewed (QCDR): Yes Consent: Informed consent for the procedure including risks, benefitsand alternatives was obtained and time-out was performed prior to theprocedure. Preparation (MIPS): The site was prepared and draped using all elementsof maximal sterile barrier technique including sterile gloves, sterile gown,cap, mask, large sterile sheet, sterile ultrasound probe cover, hand hygieneand cutaneous antisepsis with 2% chlorhexidine. Medical reason for site preparation exception (MIPS): Not applicable Anesthesia/sedation Level of anesthesia/sedation: No sedation Anesthesia/sedation administered by: Not applicable Total intra-service sedation time (minutes): Not applicable Access Local anesthesia was administered. The vessel was sonographicallyevaluated and determined to be patent. Real time ultrasound was used to visualize needleentry into the vessel and a permanent image was stored. Vein accessed (QCDR): External jugular vein Internal jugular vein patency (QCDR): The upper internal jugular vein waspatent but becomes occluded above the level of the clavicle with collateralvenous drainage to thyroid veins and subsequently the external jugular vein Access technique: Micropuncture set with 21 gauge needle Venography Indication for venography: Not performed Catheter tip position for venography: Not applicable Findings: Not applicable Catheter placement An incision was made near the venous access site and the catheter wastunneled subcutaneously to the venous access site. The catheter was advanced viaa peel-away sheath into the vein under fluoroscopic guidance. Catheter tip location was fluoroscopically verified and a permanent image was stored. Catheter placed: [employer] REF HFS 28 Catheter cuff-to-tip length (cm): 23 Catheter tip position: 2.5 vertebral body units (VBUs) below the nina. Unique Device Identifier (ERNESTO): Not available Catheter flush: Heparin (100 units/mL) Closure A sterile dressing was applied. Access site closure technique: Tissue adhesive Catheter securement technique: Non-absorbable suture Contrast Contrast agent: None Contrast volume (mL): 0 Radiation Dose Fluoroscopy time (minutes): 0.2 Additional Details Additional description of procedure: None Equipment details: None Specimens removed: None Estimated blood loss (mL): Less than 10 Standardized report: [email or web address] Attestation Signer name: Walt Lin I attest that I performed the procedure. I reviewed the stored images andagree with the report as written. Thank you for letting us participate in the care of this patient. Forquestions regarding this report, please contact the number below. Kurt Aguilar MD IMG IR ORDERABLES * Hepatitis B Surface Antigen (07/30/2018 8:17 AM EST) Hepatitis B Surface Antigen Negative Negative [facility] Blood specimen (specimen) 07/30/2018 8:17 AM EST 07/30/2018 8:25 AM EST Narrative Resulting Agency Comment Spec In Lab Gaby Mesa MD CHEMISTRY ORDERABLES Performing Organization Address City/State/[facility] Co de Phone Number [facility] [address] [place] [phone] * XR Chest PA & Lateral (Generic) (07/29/2018 10:35 PM EST) Anatomical Region Laterality Modality Chest N/A Digital Radiogra phy Impressions 07/29/2018 10:41 PM EST Mild pulmonary edema with small bilateral pleural effusions. Thank you for letting us participate in the care of this patient. For questions regarding this report, please contact the number below. ? Narrative 07/29/2018 10:41 PM EST EXAMINATION: XR CHEST PA AND LATERAL (GENERIC) CLINICAL HISTORY: fluid overload TECHNIQUE: Frontal and lateral views of the chest COMPARISON: None FINDINGS: No focal consolidation. There is indistinctness of the perihilar pulmonary vasculature. There are small bilateral pleural effusions. The cardiac silhouette is stable in size. Bones are grossly unchanged. Procedure Note Savanna Starr MD - 07/29/2018 EXAMINATION: XR CHEST PA AND LATERAL (GENERIC) CLINICAL HISTORY: fluid overload TECHNIQUE: Frontal and lateral views of the chest COMPARISON: None FINDINGS: No focal consolidation. There is indistinctness of the perihilarpulmonary vasculature. There are small bilateral pleural effusions. The cardiacsilhouette is stable in size. Bones are grossly unchanged. IMPRESSION Mild pulmonary edema with small bilateral pleural effusions. Thank you for letting us participate in the care of this patient. Forquestions regarding this report, please contact the number below. Oliver Lynn MD IMG DX ORDERABLES * Gold Tube HOLD (07/29/2018 9:36 PM EST) Gold Hold Sample in lab. [facility] Blood specimen (specimen) Venous Draw / Unknown 07/29/2018 9:36 PM EST 07/29/2018 9:38 PM EST Oliver Lynn MD CHEMISTRY ORDERABLES [facility] [place] [address] * Blue Tube HOLD (07/29/2018 9:36 PM EST) Blue Hold Sample in lab. [facility] Blood specimen (specimen) Venous Draw / Unknown 07/29/2018 9:36 PM EST 07/29/2018 9:38 PM EST Oliver Lynn MD HEMATOLOGY ORDERABLE S [facility] [place] [address] * Differential, Automated (07/29/2018 9:36 PM EST) Pathologist [facility] Neutrophil % 50.7 % [facility] Neutrophil Absolute 1.92 1.70 - 6.10 x10(3)/[facility] LABORATORY Lymph % 29.4 % [facility] Lymphocytes Abs 1.1 0.9 - 3.2 x10(3)/[facility]ORY Monocyte % 13.8 % [facility] Monocyte Abs 0.5 0.3 - 0.9 x10(3)/[facility]ORATORY Eos % 4.2 % [facility] Eosinophils Abs 0.2 0.0 - 0.4 x10(3)/[facility]ORATORY Basophil % 0.8 % [facility] Baso Absolute 0.0 0.0 - 0.1 x10(3)/[facility] LABORATORY Immature Gran % 1.10 % [facility] Comment: Immature granulocytes(IG's)percentage and absolute count will include metamyelocytes, myelocytes, and promyelocytes. Blood smears from CBCs yielding IG's will be scanned manually for concordance. If this scan disagrees with the automated IG or if promyelocytes are noted, a manual differential will be performed. Immature Gran Absolute 0.04 0.00 - 0.04 x10(3)/[facility] LABORATORY Blood specimen (specimen) 07/29/2018 9:36 PM EST 07/29/2018 9:37 PM EST Narrative Resulting Agency Comment Spec In Lab Oliver Lynn MD HEMATOLOGY ORDERABLE S Performing Organization Address City/[facility]/ZIP Co de Phone Number [facility] [place] [address] * (ABNORMAL) Hemogram (07/29/2018 9:36 PM EST) [facility] White Blood Cell 3.8(L) 4.0 - 9.5 x10(3)/ L [facility] Red Blood Cell 3.26(L) 4.58 - 5.54 x10(6)/mc L [facility] Hemoglobin 9.2(L) 13.7 - 16.5 gm/dL [facility] Hematocrit 28.9(L) 40.5 - 48.5 % [facility] Mean Cell Volume 88.7 82.9 - 93.1 fL [facility] Mean Cell Hemoglobin 28.2 27.5 - 32.1 pg [facility] Mean Cell Hemoglobin Concentration 31.8(L) 32.0 - 35.7 gm/dL [facility] Platelet 105(L) 145 - 357 x10(3)/[facility] LABORATORY RDW Standard Deviation 54.6(H) 36.0 - 45.0 [facility] LAB[facility]ATORY RDW coefficient of variation 17.2(H) 11.4 - 13.8 % [facility] Mean Platelet Volume 9.9 7.6 - 12.9 [facility]ORY NRBC% auto 0.0 % [facility] NRBC Absolute 0.000 0.000 - 0.000 x10(3)/[facility] Blood specimen (specimen) 07/29/2018 9:36 PM EST 07/29/2018 9:37 PM EST Narrative Resulting Agency Comment Spec In Lab Oliver Lynn MD HEMATOLOGY ORDERABLE S [facility] [place] [address] * (ABNORMAL) Phosphorus (07/29/2018 9:36 PM EST) Phosphorus 7.5(H) 2.5 - 4.5 mg/dL [facility] Blood specimen (specimen) 07/29/2018 9:36 PM EST 07/29/2018 9:37 PM EST Narrative Resulting Agency Comment Spec In Lab Oliver Lynn MD CHEMISTRY ORDERABLES Performing Organization Address City/[facility]/ZIP Co de Phone Number [facility] [place] [address] * Magnesium (07/29/2018 9:36 PM EST) Magnesium 1.02 0.69 - 1.07 mmol/L [facility] Blood specimen (specimen) 07/29/2018 9:36 PM EST 07/29/2018 9:37 PM EST Narrative Resulting Agency Comment Spec In Lab Oliver Lynn MD CHEMISTRY ORDERABLES Performing Organization Address [facility] de Phone Number [facility] [place] [address] * (ABNORMAL) Basic Metabolic Panel (non-fasting) (07/29/2018 9:36 PM EST) Pathologist [facility] Glucose 123 65 - 199 mg/dL [facility] Comment:Diabetes: >=200 mg/d L plus symptoms Blood Urea Nitrogen 94(H) 10 - 20 mg/dL [facility] Creatinine 9.93(H) 0.80 - 1.50 mg/dL [facility] Sodium 150(H) 135 - 145 mmol/L [facility] Potassium 4.9 3.5 - 5.0 mmol/L [facility] Comment: Please note: ??Patients with WBC >100,000 may have falsely elevated Potassium levels. ??For accurate Potassium quantification in these patients send serum separator tube (gold top) for subsequent determinations. ??Contact the Clinical Chemistry Laboratory if there are any questions. Chloride 112(H) 98 - 107 mmol/L [facility] Carbon Dioxide 18(L) 22 - 31 mmol/L [facility] Anion Gap 20(H) 5 - 15 mmol/L [facility] Calcium 8.1(L) 8.5 - 10.5 mg/dL [facility] Est Glomerular Filtration Rate 5(L) >=60 mL/min/1. 73 m?? [facility] Comment: The eGFR was calculated using the CKD-EPI equation. As with all creatinine based estimates of kidney function, eGFR values calculated with the CKD-EPI equation are not accurate in patients with acute kidney failure, extremes of body mass or the acutely ill. http://[employer]/[facility]GATEnkf eGFR 6(L) >=60 mL/min/1. 73 m?? [facility] Comment: The eGFR was calculated using the CKD-EPI equation. As with all creatinine based estimates of kidney function, eGFR values calculated with the CKD-EPI equation are not accurate in patients with acute kidney failure, extremes of body mass or the acutely ill. http://[facility] [employer]/[facility]GATEnk[facility] Blood specimen (specimen) 07/29/2018 9:36 PM EST 07/29/2018 9:37 PM EST Narrative Resulting Agency Comment Spec In Lab Oliver Lynn MD CHEMISTRY ORDERABLES [facility] [place] [id number] documented in this encounter Visit Diagnoses Diagnosis Acute kidney injury Acute kidney failure, unspecified Nonintractable epilepsy without status epilepticus, unspecified epilepsy type SDH (subdural hematoma) Subdural hemorrhage H/O kidney transplant Kidney replaced by transplant Acute renal failure Acute kidney failure, unspecified Hypernatremia Hyperosmolality and/or hypernatremia Hypertension Unspecified essential hypertension Increased anion gap metabolic acidosis Acidosis SDH (subdural hematoma) Subdural hemorrhage Epilepsy Unspecified epilepsy without mention of intractable epilepsy SDH (subdural hematoma) Subdural hemorrhage documented in this encounter Admitting Diagnoses Diagnosis Acute renal failure Acute kidney failure, unspecified documented in this encounter Administered Medications Inactive Administered Medications - up to 3 most recent administrations Medication Order MAR Action Action Date Dose Rate Site acetaminophen (TYLENOL) tablet 650 mg 650 mg, Oral, EVERY 6 HOURS PRN, Starting on 07/30/18 at 0113, Until 08/08/18 at 1247, Pain, Fever, Administer for temperature greater than 38.3??C or if temperature is greater than 38.0??C for at least an hour. Maximum dose of acetaminophen is 4000 mg from all sources in 24 hours., Routine Given 07/30/2018 5:38 PM EST 650 mg allopurinol (ZYLOPRIM) tablet 100 mg 100 mg, Oral, DAILY, First dose on Wed07/30/18 at 0900, Until Discontinued, Routine Given 2018 8:21 AM EST 100 mg Given 08/07/2018 8:46 AM EST 100 mg Given 08/06/2018 1:22 PM EST 100 mg amLODIPine (NORVASC) tablet 10 mg 10 mg, Oral, DAILY, First dose (after last modification) on Wed07/30/18 at 0615, Until Discontinued, Please give the first dose early today Jul 30, Routine Given 2018 8:20 AM EST 10 mg Given 08/07/2018 8:46 AM EST 10 mg Given 08/06/2018 1:23 PM EST 10 mg calcium carbonate (TUMS) chewable tablet 1,000 mg 1,000 mg, Oral, 3 TIMES DAILY WITH MEALS, First dose (after last modification) on Wed08/02/18 at 1200, Until Discontinued, Routine Given 2018 8:22 AM EST 1,000 mg Given 08/07/2018 4:54 PM EST 1,000 mg Given 08/07/2018 12:12 PM EST 1,000 mg calcium carbonate (TUMS) chewable tablet 500 mg 500 mg, Oral, 3 TIMES DAILY WITH MEALS, First dose on Wed07/30/18 at 0800, Until Discontinued, Routine Given 08/01/2018 4:59 PM EST 500 mg Given 08/01/2018 12:56 PM EST 500 mg Given 07/31/2018 5:21 PM EST 500 mg carvedilol (COREG) tablet 12.5 mg 12.5 mg, Oral, 2 TIMES DAILY WITH MEALS, First dose on Wed08/05/18 at 1715, Until Discontinued, Routine Given 2018 8:20 AM EST 12.5 mg Given 08/07/2018 4:54 PM EST 12.5 mg Given 08/07/2018 8:46 AM EST 12.5 mg dilTIAZem (Cardizem CD) ER capsule 120 mg 120 mg, Oral, DAILY, First dose on Wed07/30/18 at 0900, Until Discontinued, DO NOT CRUSH OR OPEN, Routine Given 08/05/2018 8:36 AM EST 120 mg Given 08/04/2018 12:58 PM EST 120 mg Given 08/03/2018 8:52 AM EST 120 mg epoetin kerry (EPOGEN;PROCRIT) injection 10,000 Units 10,000 Units, Intravenous, ONCE IN DIALYSIS PRN, 1 dose, Starting on 07/30/18 at 1352, Until 07/30/18 at 1627, Other, Dialysis (Intra-Procedure), Routine, What is the indication of use? End Stage Renal Disease (ESRD) on dialysis Given 07/30/2018 4:27 PM EST 10,000 Units epoetin kerry (EPOGEN;PROCRIT) injection 10,000 Units 10,000 Units, Intravenous, ONCE IN DIALYSIS PRN, 1 dose, Starting on [facility] 08/04/18 at 0000, Until [facility] 08/04/18 at 1027, Other, Dialysis (Intra-Procedure), Routine, What is the indication of use? End Stage Renal Disease (ESRD) on dialysis Given 08/04/2018 10:27 AM EST 10,000 Units epoetin kerry (EPOGEN;PROCRIT) injection 10,000 Units 10,000 Units, Intravenous, ONCE IN DIALYSIS PRN, 1 dose, Starting on 08/06/18 at 0000, Until 08/06/18 at 1139, Other, Dialysis (Intra-Procedure), Routine, What is the indication of use? End Stage Renal Disease (ESRD) on dialysis Given 08/06/2018 11:39 AM EST 10,000 Units epoetin kerry (EPOGEN;PROCRIT) injection 12,000 Units 12,000 Units, Intravenous, ONCE IN DIALYSIS PRN, 1 dose, Starting on 08/02/18 at 0000, Until 08/02/18 at 1204, Other, Dialysis (Intra-Procedure), Routine, What is the indication of use? End Stage Renal Disease (ESRD) on dialysis Given 08/02/2018 12:04 PM EST 12,000 Units fentaNYL (PF) 50 mcg/mL injection 1 dose, Starting on 07/30/18 at 1220, Until 07/30/18 at 1250, DEWAYNE ARELLANO: abigail override fentaNYL 50 mcg/mL multi-dose injection 25-50 mcg, Intravenous, EVERY 5 MIN PRN, Starting on 07/30/18 at 1222, Until 07/30/18 at 1317, Pain, per unit protocol, - Start dose [...] and verbal order., Angio/IR (Intra-Procedure), Routine Given 07/30/2018 12:59 PM EST 50 mcg Given 07/30/2018 12:50 PM EST 50 mcg furosemide (LASIX) injection 80 mg 80 mg, Intravenous, ONCE, 1 dose, On Wed07/29/18 at 2153, STAT Given 07/29/2018 10:07 PM EST 80 mg furosemide (LASIX) tablet 40 mg 40 mg, Oral, 3 TIMES DAILY, First dose on 07/30/18 at 0900, Until Discontinued, Routine Given 07/30/2018 9:29 AM EST 40 mg heparin (porcine) injection 100-10,000 Units 100-10,000 Units, Intercatheter, ONCE PRN, 1 dose, Starting on 07/30/18 at 0647, Until 07/30/18 at 1324, Line Care, Catheter lock per catheter specified fill volume per dialysis protocol. For use in Dialysis only with direct provider supervision and verbal order., Dialysis (Intra-Procedure), Routine Given 07/30/2018 4:55 PM EST 4,000 Units heparin (porcine) injection 100-10,000 Units 100-10,000 Units, Intercatheter, ONCE PRN, 1 dose, Starting on 08/01/18 at 0000, Until 08/01/18 at 1145, Line Care, Catheter lock per catheter specified fill volume per dialysis protocol. For use in Dialysis only with direct provider supervision and verbal order., Dialysis (Intra-Procedure), Routine Given 08/01/2018 11:45 AM EST 4,000 Units heparin (porcine) injection 100-10,000 Units 100-10,000 Units, Intercatheter, ONCE PRN, 1 dose, Starting on 08/02/18 at 0000, Until [facility] 08/04/18 at 1216, Line Care, Catheter lock per catheter specified fill volume per dialysis protocol. For use in Dialysis only with direct provider supervision and verbal order., Dialysis (Intra-Procedure), Routine Given 08/04/2018 12:16 PM EST 4,000 Units heparin (porcine) injection 100-10,000 Units 100-10,000 Units, Intercatheter, ONCE PRN, 1 dose, Starting on 08/06/18 at 0958, Until 08/06/18 at 1231, Line Care, Catheter lock per catheter specified fill volume per dialysis protocol. For use in Dialysis only with direct provider supervision and verbal order., Dialysis (Intra-Procedure), Routine Given 08/06/2018 12:31 PM EST 4,000 Units heparin (porcine) injection 3,000 Units 3,000 Units, Intravenous, ONCE IN DIALYSIS, 1 dose, On 08/01/18 at 0000, For use in Dialysis only with direct provider supervision and verbal order., Dialysis (Intra-Procedure), Routine Given 08/01/2018 8:30 AM EST 3,000 Units hydrALAZINE (APRESOLINE) tablet 100 mg 100 mg, Oral, 3 TIMES DAILY, First dose (after last modification) on Wed08/02/18 at 1500, Until Discontinued, Take with Food, Routine Given 2018 8:21 AM EST 100 mg Given 08/07/2018 8:10 PM EST 100 mg Given 08/07/2018 1:42 PM EST 100 mg hydrALAZINE (APRESOLINE) tablet 125 mg 125 mg, Oral, 3 TIMES DAILY, First dose on 07/30/18 at 0900, Until Discontinued, Take with Food, Routine Given 08/02/2018 8:08 AM EST 125 mg Given 08/01/2018 8:05 PM EST 125 mg Given 08/01/2018 3:27 PM EST 125 mg labetalol (NORMODYNE) tablet 100 mg 100 mg, Oral, EVERY 6 HOURS PRN, Starting on 07/31/18 at 0758, Until 08/07/18 at 1633, SBP >185 or DBP >105, Routine Given 08/01/2018 8:57 AM EST 100 mg Given 07/31/2018 8:41 AM EST 100 mg levETIRAcetam (KEPPRA) 1,000 mg in sodium chloride (ISO-OSM) 100 mL 1,000 mg (1 g), Intravenous, at 400 mL/hr, ONCE, 1 dose, On Wed08/03/18 at 1915, STAT Given 08/03/2018 7:35 PM EST 1,000 mg 400 mL/hr levETIRAcetam (KEPPRA) tablet 250 mg 250 mg, Oral, NIGHTLY, First dose on [facility] 07/30/18 at 2100, Until Discontinued, Routine Given 08/03/2018 8:47 PM EST 250 mg Given 08/02/2018 8:58 PM EST 250 mg Given 08/01/2018 8:05 PM EST 250 mg levETIRAcetam (KEPPRA) tablet 500 mg 500 mg, Oral, DAILY, First dose on [facility] 07/30/18 at 0900, Until Discontinued, Routine Given 08/03/2018 8:51 AM EST 500 mg Given 08/02/2018 12:55 PM EST 500 mg Given 08/01/2018 12:57 PM EST 500 mg levETIRAcetam (KEPPRA) tablet 500 mg 500 mg, Oral, NIGHTLY, First dose (after last modification) on [facility] 08/04/18 at 2100, Until Discontinued, Routine Given 08/07/2018 8:11 PM EST 500 mg Given 08/06/2018 8:23 PM EST 500 mg Given 08/05/2018 8:29 PM EST 500 mg levETIRAcetam (KEPPRA) tablet 500 mg 500 mg, Oral, DAILY, First dose (after last modification) on [facility] 08/04/18 at 0900, Until Discontinued, Routine Given 2018 8:20 AM EST 500 mg Given 08/07/2018 8:46 AM EST 500 mg Given 08/06/2018 1:25 PM EST 500 mg levothyroxine (SYNTHROID) tablet 100 mcg 100 mcg, Oral, EVERY MORNING, First dose on [facility] 07/30/18 at 0600, Until Discontinued, Routine Given 2018 5:53 AM EST 100 mcg Given 08/07/2018 5:06 AM EST 100 mcg Given 08/06/2018 5:43 AM EST 100 mcg lidocaine (XYLOCAINE) 10 mg/mL (1 %) injection 10 mg 10 mg, Subcutaneous, ONCE, 1 dose, On [facility] 07/30/18 at 1245, For use in Interventional Radiology (IR) only for procedure with direct provider supervision and verbal order., Angio/IR (Intra-Procedure), Routine Given 07/30/2018 1:06 PM EST 10 mg losartan (COZAAR) tablet 100 mg 100 mg, Oral, DAILY, First dose on Wed07/31/18 at 1300, Until Discontinued, Routine Given 2018 8:20 AM EST 100 mg Given 08/07/2018 8:47 AM EST 100 mg Given 08/06/2018 1:23 PM EST 100 mg metoprolol succinate (TOPROL-XL) XL tablet 200 mg 200 mg, Oral, NIGHTLY, First dose on Wed08/01/18 at 2100, Until Discontinued, DO NOT CRUSH OR OPEN, Routine Given 08/04/2018 8:39 PM EST 200 mg Given 08/03/2018 8:47 PM EST 200 mg Given 08/02/2018 8:58 PM EST 200 mg metoprolol tartrate (LOPRESSOR) tablet 25 mg 25 mg, Oral, 3 TIMES DAILY, First dose on Wed07/30/18 at 0900, Until Discontinued, HOLD for SBP < 90 or HR < 60., Routine Given 08/01/2018 3:27 PM EST 25 mg Given 08/01/2018 12:57 PM EST 25 mg Given 07/31/2018 8:31 PM EST 25 mg mycophenolate (CELLCEPT) capsule 500 mg 500 mg, Oral, 2 TIMES DAILY, First dose on Wed07/30/18 at 0700, Until Discontinued, DO NOT CRUSH OR OPEN Administer to patient on empty stomach (1 hour before or two hours after a meal)., Routine Given 08/03/2018 8:47 PM EST 500 mg Given 08/03/2018 8:50 AM EST 500 mg Given 08/02/2018 8:58 PM EST 500 mg pantoprazole (PROTONIX) tablet 20 mg 20 mg, Oral, 2 TIMES DAILY, First dose on Wed07/30/18 at 0100, Until Discontinued, DO NOT CRUSH OR OPEN Given 2018 8:21 AM EST 20 mg Given 08/07/2018 8:11 PM EST 20 mg Given 08/07/2018 8:47 AM EST 20 mg prochlorperazine (COMPAZINE) injection 10 mg 10 mg, Intravenous, EVERY 6 HOURS PRN, Starting on Wed07/30/18 at 0113, Until 08/08/18 at 1247, Nausea, Vomiting, Use first if multiple anti-emetics ordered., Routine Given 07/30/2018 6:37 PM EST 1 0 mg senna-docusate (PERICOLACE) 8.6-50 mg per tablet 2 tablet 2 tablet, Oral, 2 TIMES DAILY PRN, Starting on 07/30/18 at 0113, Until 08/08/18 at 1247, Constipation, Use first for constipation if multiple laxatives/softeners ordered, or per patient request., Routine sodium chloride 0.9 % flush 5 mL 5 mL, Intravenous, 2 TIMES DAILY, First dose on 07/30/18 at 0100, Until Discontinued, Routine Given 2018 8:23 AM EST 5 mLs Given 08/07/2018 8:12 PM EST 5 mLs Given 08/07/2018 8:47 AM EST 5 mLs sodium chloride 0.9 % flush 5-20 mL 5-20 mL, Intravenous, ONCE, 1 dose, On Wed08/03/18 at 1900, STAT Given 08/03/2018 7:35 PM EST 5 mLs tacrolimus (PROGRAF) capsule 1 mg 1 mg, Oral, 2 TIMES DAILY, First dose (after last modification) on [facility] 08/04/18 at 2100, Until Discontinued, Routine Given 2018 8:21 AM EST 1 mg Given 08/07/2018 8:11 PM EST 1 mg Given 08/07/2018 8:46 AM EST 1 mg tacrolimus (PROGRAF) capsule 1-1.5 mg 1-1.5 mg, Oral, 2 TIMES DAILY, First dose on 07/30/18 at 0100, Until Discontinued, Give 1.5 mg PO at 0900 and 1 mg PO at 2100., Routine Given 08/03/2018 8 :47 PM EST 1 mg Given 08/03/2018 8:50 AM EST 1.5 mg Given 08/02/2018 8:58 PM EST 1 mg documented in this encounter Active and Recently Administered Medications Times are shown in EST. Scheduled Medication Order 08/06/2018 08/07/2018 2018 allopurinol (ZYLOPRIM) tablet 100 mg 100 mg, Oral, DAILY, First dose on 07/30/18 at 0900, Until Discontinued, Routine 1322 (Given - Provider: Marcia Ramírez RN) 0846 (Given - Provider: Anel Villar RN) 0821 (Given - Provider: Anel Villar RN) amLODIPine (NORVASC) tablet 10 mg 10 mg, Oral, DAILY, First dose (after last modification) on Wed07/30/18 at 0615, Until Discontinued, Please give the first dose early today Jul 30, Routine 1323 (Given - Provider: Marcia Ramírez RN) 0846 (Given - Provider: Anel Villar RN) 0820 (Given - Provider: Anel Villar RN) calcium carbonate (TUMS) chewable tablet 1,000 mg 1,000 mg, Oral, 3 TIMES DAILY WITH MEALS, First dose (after last modification) on Wed08/02/18 at 1200, Until Discontinued, Routine 0800 (Not Given - Provider: Marcia Ramírez RN - Reason: See comment - Comment: Pt went to )1322 (Given - Provider: Marcia Ramírez RN)1733 (Given - Provider: Marcia Ramírez RN) 0846 (Given - Provider: Anel Villar RN)1212 (Given - Provider: Anel Villar RN)1654 (Given - Provider: Anel Villar RN) 0822 (Given - Provider: Anel Villar RN) carvedilol (COREG) tablet 12.5 mg 12.5 mg, Oral, 2 TIMES DAILY WITH MEALS, First dose on Wed08/05/18 at 1715, Until Discontinued, Routine 1322 (Given - Provider: Marcia Ramírez RN)1733 (Given - Provider: Marcia Ramírez RN) 0846 (Given - Provider: Anel Villar RN)1654 (Given - Provider: Anel Villar RN) 0820 (Given - Provider: Anel Villar RN) hydrALAZINE (APRESOLINE) tablet 100 mg 100 mg, Oral, 3 TIMES DAILY, First dose (after last modification) on Wed08/02/18 at 1500, Until Discontinued, Take with Food, Routine 0800 (Not Given - Provider: Marcia Ramírez RN - Reason: See comment - Comment: Pt went to HD, when he returned too close to next administration)1323 (Given - Provider: Marcia Ramírez RN)2022 (Given - Provider: Gray Bach RN) 0846 (Given - Provider: Anel Villar RN)1342 (Given - Provider: Anel Villar RN)2009 (Given - Provider: Lucrecia Skinner, SAVANNA) 0821 (Given - Provider: Anel Villar RN) levETIRAcetam (KEPPRA) tablet 500 mg(Linked Group 1) 500 mg, Oral, NIGHTLY, First dose (after last modification) on [facility] 08/04/18 at 2100, Until Discontinued, Routine 2022 (Given - Provider: Gray Bach RN) 2010 (Given - Provider: Lucrecia Skinner RN) levETIRAcetam (KEPPRA) tablet 500 mg(Linked Group 1) 500 mg, Oral, DAILY, First dose (after last modification) on [facility] 08/04/18 at 0900, Until Discontinued, Routine 132 (Given - Provider: Marcia Ramírez RN) 0846 (Given - Provider: Anel Villar RN) 0820 (Given - Provider: Anel Villar RN) levothyroxine (SYNTHROID) tablet 100 mcg 100 mcg, Oral, EVERY MORNING, First dose on 07/30/18 at 0600, Until Discontinued, Routine 0543 (Given - Provider: Gray Bach RN) 0506 (Given - Provider: Gray Bach, SAVANNA) 0553 (Given - Provider: Lucrecia Skinner, SAVANNA) losartan (COZAAR) tablet 100 mg 100 mg, Oral, DAILY, First dose on 07/31/18 at 1300, Until Discontinued, Routine 1323 (Given - Provider: Marcia Ramírez RN) 0847 (Given - Provider: Anel Villar RN) 0820 (Given - Provider: Anel Villar RN) pantoprazole (PROTONIX) tablet 20 mg 20 mg, Oral, 2 TIMES DAILY, First dose on 07/30/18 at 0100, Until Discontinued, DO NOT CRUSH OR OPEN 132 (Given - Provider: Marcia Ramírez RN)2022 (Given - Provider: Gray Bach RN) 08 (Given - Provider: Anel Villar RN)2010 (Given - Provider: Lucrecia Skinner RN) 820 (Given - Provider: Anel Villar RN) sodium chloride 0.9 % flush 5 mL 5 mL, Intravenous, 2 TIMES DAILY, First dose on 07/30/18 at 0100, Until Discontinued, Routine 1327 (Given - Provider: Marcia Ramírez RN)2023 (Given - Provider: Gray Bach RN) 08 (Given - Provider: Anel Villar RN)2011 (Given - Provider: Lucrecia Skinner RN) 822 (Given - Provider: Anel Villar RN) tacrolimus (PROGRAF) capsule 1 mg 1 mg, Oral, 2 TIMES DAILY, First dose (after last modification) on [facility] 08/04/18 at 2100, Until Discontinued, Routine 1323 (Given - Provider: Marcia Ramírez RN)2022 (Given - Provider: Gray Bach RN) 0846 (Given - Provider: Anel Villar RN)2010 (Given - Provider: Lucrecia Skinner RN) 08 (Given - Provider: Anel Villar RN) PRN Medication Order 08/06/2018 08/07/2018 2018 acetaminophen (TYLENOL) tablet 650 mg 650 mg, Oral, EVERY 6 HOURS PRN, Starting on 07/30/18 at 0113, Until 08/08/18 at 1247, Pain, Fever, Administer for temperature greater than 38.3??C or if temperature is greater than 38.0??C for at least an hour. Maximum dose of acetaminophen is 4000 mg from all sources in 24 hours., Routine epoetin kerry (EPOGEN;PROCRIT) injection 10,000 Units (COMPLETED) 10,000 Units, Intravenous, ONCE IN DIALYSIS PRN, 1 dose, Starting on 08/06/18 at 0000, Until 08/06/18 at 1139, Other, Dialysis (Intra-Procedure), Routine, What is the indication of use? End Stage Renal Disease (ESRD) on dialysis 1139 (Given - Provider: Lisa Salazar RN) heparin (porcine) injection 100-10,000 Units (COMPLETED) 100-10,000 Units, Intercatheter, ONCE PRN, 1 dose, Starting on 08/06/18 at 0958, Until 08/06/18 at 1231, Line Care, Catheter lock per catheter specified fill volume per dialysis protocol. For use in Dialysis only with direct provider supervision and verbal order., Dialysis (Intra-Procedure), Routine 1231 (Given - Provider: Lisa Salazar RN) lidocaine (XYLOCAINE) 10 mg/mL (1 %) injection 3 mg 3 mg (0.3 mL), Subcutaneous, ONCE PRN, 1 dose, Starting on 07/30/18 at 0040, Until 08/08/18 at 1247, for discomfort with PIV insertion, Routine prochlorperazine (COMPAZINE) injection 10 mg 10 mg, Intravenous, EVERY 6 HOURS PRN, Starting on 07/30/18 at 0113, Until 08/08/18 at 1247, Nausea, Vomiting, Use first if multiple anti-emetics ordered., Routine senna-docusate (PERICOLACE) 8.6-50 mg per tablet 2 tablet 2 tablet, Oral, 2 TIMES DAILY PRN, Starting on 07/30/18 at 0113, Until 08/08/18 at 1247, Constipation, Use first for constipation if multiple laxatives/softeners ordered, or per patient request., Routine sodium chloride 0.9 % flush 5-20 mL 5-20 mL, Intravenous, EVERY 1 MIN PRN, Starting on 07/30/18 at 0040, Until 08/08/18 at 1247, flush, Flush pertains to all indwelling lines. Flush per protocol found in the job aid using the link provided on this medication record., Routine Linked Groups Order Group 1: levETIRAcetam (KEPPRA) tablet 500 mgJump to med 500 mg, Oral, DAILY, First dose (after last modification) on [facility] 08/04/18 at 0900, Until Discontinued, Routine And levETIRAcetam (KEPPRA) tablet 500 mgJump to med 500 mg, Oral, NIGHTLY, First dose (after last modification) on [facility] 08/04/18 at 2100, Until Discontinued, Routine documented in this encounter Care Teams Data Analytics Architect Relationship Specialty Start Date End Date Carroll Fuentes DO [address] [place] [address] PCP - General 09/23/11 10/20/22 documented as of this encounter
--- OUTSIDE RECORDS SUMMARY | 2024-04-22 10:55 | XMS_ITS | Encounter Summary ---
[place] [address] Care Team Providers Care Invoice Machine Operator Name Role Phone AlfredoCarroll allison Primary Care Provider [phone] Encounter Details Date Type Department Care Team (Latest Contact Info) Description 11/29/2018 9:20 AM EDT Laboratory Appointment Lab [address] [place] [id number] H/O kidney transplant; S/P kidney transplant Social History Tobacco Use Types [...] Procedure Name Priority Date/Time Associated Diagnosis Comments BKV QUANT URINE STAT 11/29/2018 10:02 AM EDT H/O kidney transplant PTH STAT 11/29/2018 9:45 AM EDT H/O kidney transplant CMP W/FASTING GLUCOSE STAT 11/29/2018 9:45 AM EDT H/O kidney transplant HEMOGRAM STAT 11/29/2018 9:45 AM EDT H/O kidney transplant DIFFERENTIAL, AUTOMATED STAT 11/29/2018 9:45 AM EDT H/O kidney transplant GOLD TUBE HOLD STAT 11/29/2018 9:45 AM EDT H/O kidney transplant LAVENDER TUBE HOLD STAT 11/29/2018 9: 45 AM EDT H/O kidney transplant TACROLIMUS LEVEL STAT 11/29/2018 9:45 AM EDT H/O kidney transplant 1,25-DIHYDROXYCHOLECA LCIFEROL STAT 11/29/2018 9:45 AM EDT H/O kidney transplant VITAMIN D, 25-HYDROXY STAT 11/29/2018 9:45 AM EDT H/O kidney transplant RETICULOCYTE COUNT STAT 11/29/2018 9: 45 AM EDT H/O kidney transplant CBC (WITH DIFF) STAT 11/29/2018 9:45 AM EDT H/O kidney transplant URIC ACID STAT 11/29/2018 9:45 AM EDT H/O kidney transplant PHOSPHORUS STAT 11/29/2018 9:45 AM EDT H/O kidney transplant MAGNESIUM STAT 11/29/2018 9:45 AM EDT H/O kidney transplant HEMOGLOBIN A1C STAT 11/29/2018 9:45 AM EDT H/O kidney transplant LIPID PANEL (REFLEX DIRECT LDL) STAT 11/29/2018 9:45 AM EDT H/O kidney transplant documented in this encounter Results * BKV Quant Urine (11/29/2018 10:02 AM EDT) BKV Urine Result Not Detected [facility] BKV Urine Interp BK Virus Urine Result Interpretation Result: BK Virus not detected Specimen type: urine Assay Range: 2.80-7.80 log copies/mL (6.28x10^2 - 6.28x10^7 copies/mL) Methods: Quantitative real-time polymerase chain reaction (PCR) of viral DNA isolated from plasma was performed using Luminex BKV analyte-specific reagents and the [employer] System that automates both nucleic acid isolation and real-time quantitative PCR. Limitations and Disclaimers: Although unlikely, rare variants or polymorphisms in BKV or related viruses have the potential to interfere with the performance of this test, producing false negative or false positive results. ??When test results are not consistent with other clinical observations or test results, alternative testing may be considered. This test was developed and its performance characteristics determined by the [facility] at [facility]. It has not been cleared or approved by the FDA. The laboratory is regulated under CLIA as qualified to perform high-complexity testing. This test is used for clinical purposes. It should not be regarded as investigational or for research. [facility] Comment: [VERIFIED DATE]12.01.18 Verified By:Amy Turk (Electronic Signature) Urine specimen (specimen) 11/29/2018 10:02 AM EDT 11/29/2018 11:27 AM EDT Narrative Resulting Agency Comment Spec In Lab Anup Hawkins MD MOLECULAR ORDERAB LES [facility] [place] [address] * Differential, Automated (11/29/2018 9:45 AM EDT) Neutrophil % 59.8 % [facility] Neutrophil Absolute 2.88 1.70 - 6.10 x10(3)/[facility] Lymph % 25.5 % [facility] Lymphocytes Abs 1.2 0.9 - 3.2 x10(3)/[facility] Monocyte % 11.4 % [facility] Monocyte Abs 0.6 0.3 - 0.9 x10(3)/[facility] Eos % 2.3 % [facility] Eosinophils Abs 0.1 0.0 - 0.4 x10(3)/[facility] Basophil % 0.8 % [facility] Baso Absolute 0.0 0.0 - 0.1 x10(3)/[facility] Immature Gran % 0.20 % [facility] Comment: Immature granulocytes(IG's)percentage and absolute count will include metamyelocytes, myelocytes, and promyelocytes. Blood smears from CBCs yielding IG's will be scanned manually for concordance. If this scan disagrees with the automated IG or if promyelocytes are noted, a manual differential will be performed. Immature Gran Absolute 0.01 0.00 - 0.04 x10(3)/[facility] Blood specimen (specimen) 11/29/2018 9:45 AM EDT 11/29/2018 9:57 AM EDT Narrative Resulting Agency Comment Spec In Lab Anup Hawkins MD HEMATOLOGY ORDERA BLES [facility] [place] [address] * (ABNORMAL) Hemogram (11/29/2018 9:45 AM EDT) White Blood Cell 4.8 4.0 - 9.5 x10(3)/mc L [facility] Red Blood Cell 4.10(L) 4.58 - 5.54 x10(6)/mc L [facility] Hemoglobin 11.8(L) 13.7 - 16.5 gm/dL [facility] Hematocrit 37.4(L) 40.5 - 48.5 % [facility] Mean Cell Volume 91.2 82.9 - 93.1 fL [facility] Mean Cell Hemoglobin 28.8 27.5 - 32.1 pg [facility] Mean Cell Hemoglobin Concentration 31.6(L) 32.0 - 35.7 gm/dL [facility] Platelet 200 145 - 357 x10(3)/mc L [facility] RDW Standard Deviation 53.2(H) 36.0 - 45.0 fL [facility] RDW coefficient of variation 16.1(H) 11.4 - 13.8 % [facility] Mean Platelet Volume 8.9 7.6 - 12.9 fL [facility] NRBC% auto 0.0 % [facility] NRBC Absolute 0.000 0.000 - 0.000 x10(3)/mc L [facility] Blood specimen (specimen) 11/29/2018 9:45 AM EDT 11/29/2018 9:57 AM EDT Narrative Resulting Agency Comment Spec In Lab Anup Hawkins MD HEMATOLOGY ORDERA BLES Performing Organization Address [facility] de Phone Number [facility] [place] [address] * 1,25-dihydroxycholecalciferol (11/29/2018 9:45 AM EDT) Vit D 1,25 Dihydroxy (NOVEMBER) 24 18 - 64 pg/mL [facility] Comment: ADDITIONAL INFORMATION This test was developed and its performance characteristics determined by [facility] in a manner consistent with CLIA requirements. This test has not been cleared or approved by the U.S. Food and Drug Administration. Test Performed by: [facility] [address] [place] [address] Blood specimen (specimen) 11/29/2018 9:45 AM EDT 11/29/2018 12:16 PM EDT Narrative Resulting Agency Comment Spec In Lab Anup Hawkins MD LAB SEND OUT RYAN CALERO Performing Organization Address [facility] Co de Phone Number [facility] [place] [address] * (ABNORMAL) CMP w/fasting Glucose (11/29/2018 9:45 AM EDT) Glucose Fasting 104(H) 65 - 99 mg/dL [facility] Comment: ?Fasting* Glucose Interpretive Criteria Normal ?65-99 mg/dL Impaired Fasting glucose ?100-125 mg/dL Consistent with Diabetes Mellitus ? >or= 126 mg/dL *Fasting is defined as no caloric intake for at least 8 hours In the absence of unequivocal hyperglycemia a plasma glucose value of >or= 126 mg/dL should be repeated on a subsequent day. Diagnosis and Classification of Diabetes Mellitus, Position Statement from the [place] Diabetes [employer]. ??Diabetes Care, Volume 33, Supplement 1, Jul 2009 Blood Urea Nitrogen 43(H) 10 - 20 mg/dL [facility] Creatinine 7.34(H) 0.80 - 1.50 mg/dL [facility] Sodium 137 135 - 145 mmol/L [facility] Potassium 5.8(H) 3.5 - 5.0 mmol/L [facility] Comment: Please note: ??Patients with WBC >100,000 may have falsely elevated Potassium levels. ??For accurate Potassium quantification in these patients send serum separator tube (gold top) for subsequent determinations. ??Contact the Clinical Chemistry Laboratory if there are any questions. Chloride 95(L) 98 - 107 mmol/L [facility] Carbon Dioxide 26 22 - 31 mmol/L [facility] Anion Gap 16(H) 5 - 15 mmol/L [facility] Calcium 9.4 8.5 - 10.5 mg/dL [facility] Protein, Total 7.7 6.1 - 8.0 gm/dL [facility] Albumin 4.2 3.2 - 5.2 gm/dL [facility] Aspartate Aminotransferase 14 0 - 39 unit/L [facility] Alanine Aminotransferase 13 0 - 55 unit/L [facility] Alkaline Phosphatase 93 40 - 120 unit/L [facility] Bilirubin, Total 0.5 0.2 - 1.3 mg/dL [facility] Est Glomerular Filtration Rate 7(L) >=60 mL/min/1. 73 m?? [facility] Comment: The eGFR was calculated using the CKD-EPI equation. As with all creatinine based estimates of kidney function, eGFR values calculated with the CKD-EPI equation are not accurate in patients with acute kidney failure, extremes of body mass or the acutely ill. http://[employer] CITYnkf eGFR 9(L) >=60 mL/min/1. 73 m?? [facility] Comment: The eGFR was calculated using the CKD-EPI equation. As with all creatinine based estimates of kidney function, eGFR values calculated with the CKD-EPI equation are not accurate in patients with acute kidney failure, extremes of body mass or the acutely ill. http://[employer]DHnkf Blood specimen (specimen) 11/29/2018 9:45 AM EDT 11/29/2018 9:57 AM EDT Narrative Resulting Agency Comment Spec In Lab Anup Hwakins MD CHEMISTRY ORDERAB LES [facility] [place] [address] * Gold Tube HOLD (11/29/2018 9:45 AM EDT) Gold Hold Sample in lab. [facility] Blood specimen (specimen) 11/29/2018 9:45 AM EDT 11/29/2018 9:57 AM EDT Anup Hawkins MD CHEMISTRY ORDERAB LES [facility] [place] [address] * Hemoglobin A1c (11/29/2018 9:45 AM EDT) Hemoglobin A1c 5.4 4.3 - 5.6 % [facility] Comment: Reference Range: 4.3 - 5.6% 5.7 - 6.4% - Increased Risk of Developing Diabetes Mellitus >= 6.5% - Consistent with diagnosis of Diabetes Mellitus In the absence of hyperglycemia (i.e. plasma glucose > 200 mg/dL) or classic symptoms of hyperglycemia a repeat measurement of HbA1c should be performed on a separate sample to confirm the diagnosis. Diagnosis and Classification of Diabetes Mellitus, Diabetes Care 2013; 36: Suppl. 1, S67-74 Estimated Average Glucose 108 mg/dL [facility] Comment: eAG equivalents for HbA1c percentages: HbA1c(%) ?eAG(mg/dL) 6.0 ?126 6.5 ?140 7.0 ?154 7.5 ?169 8.0 ?183 8.5 ?197 9.0 ?212 9.5 ?226 10.0 ? 240 Limitations: The eAG calculation has not been validated on women, individuals below 18 years old and above 70 years old, and individuals with hemoglobinopathies. Additional resources are available on the ADA website. Rakesh GREWAL, Ashish J, Lizzette R, et al. ??Translating the A1C assay into estimated average glucose values. ??Diabetes Care 2008:31(8):8420-7283. Blood specimen (specimen) 11/29/2018 9:45 AM EDT 11/29/2018 9:57 AM EDT Narrative Resulting Agency Comment Spec In Lab Anup Hawkins MD CHEMISTRY ORDERAB LES Performing Organization Address City/[facility]/ZIP Co de Phone Number [facility] [place] [address] * Lavender Tube HOLD (11/29/2018 9:45 AM EDT) Lavender Hold Sample in lab. [facility] Blood specimen (specimen) 11/29/2018 9:45 AM EDT 11/29/2018 9:57 AM EDT Anup Hawkins MD HEMATOLOGY ORDERA BLES Performing Organization Address [facility] Co de Phone Number [facility] [place] [address] * Lipid Panel (11/29/2018 9:45 AM EDT) Cholesterol, Total 162 mg/dL [facility] Comment: Lower Risk: <200 mg/dL Average Risk: 200-239 mg/dL Higher Risk: >uq=112 mg/dL Triglyceride 103 mg/dL [facility] Comment: Average Risk/Lower Risk: <150 mg/dL Borderline High Risk: 150-199 mg/dL High Risk: 200-499 mg/dL Very High Risk: >ui=569 mg/dL HDL Cholesterol 34 mg/dL [facility] Comment: Males: ?? Higher Risk: <40 mg/dL Females: ?? HIgher Risk: <50 mg/dL LDL Cholesterol 107 mg/dL [facility] Comment: Lowest Risk: <100 mg/dL Lower Risk: 100-129 mg/dL Borderline High Risk: 130-159 mg/dL High Risk: 160-189 mg/dL Very High Risk: >vl=284 mg/dL Cholesterol/HDL Ratio 4.8 ratio [facility] Lipid Interpretation See Note [facility] Comment: Lipid management should be guided by a patient? s ASCVD risk, goals and preferences. ACC/AHA Guidelines recommend high intensity statin if clinical ASCVD or LDL greater than or equal to 190 mg/dL. http://[employer]url.com/OMC-VIV-Ttersyvqx Adults aged 40-75 with LDL 70-189 mg/dL should have their 10 year ASCVD risk estimated with the ACC/AHA ASCVD risk commercial estimator http://tools.acc.org/IEOTB-Dznr-Jjhefkbmr/ Statin should be discussed if risk greater [...] Lab Anup Hawkins MD CHEMISTRY ORDERAB LES Performing Organization Address [facility] Co de Phone Number [facility] [place] [address] * Magnesium (11/29/2018 9:45 AM EDT) Magnesium 0.87 0.69 - 1.07 mmol/L [facility] Blood specimen (specimen) 11/29/2018 9:45 AM EDT 11/29/2018 9:57 AM EDT Narrative Resulting Agency Comment Spec In Lab Anup Hawkins MD CHEMISTRY ORDERAB LES Performing Organization Address City/[facility]/ZIP Co de Phone Number [facility] [place] [address] * Phosphorus (11/29/2018 9:45 AM EDT) Phosphorus 3.6 2.5 - 4.5 mg/dL [facility] Blood specimen (specimen) 11/29/2018 9:45 AM EDT 11/29/2018 9:57 AM EDT Narrative Resulting Agency Comment Spec In Lab Anup Hawkins MD CHEMISTRY ORDERAB LES Performing Organization Address City/[facility]/ZIP Co de Phone Number [facility] [place] [address] * PTH (11/29/2018 9:45 AM EDT) Parathyroid Hormone 52 15 - 65 pg/mL [facility] Blood specimen (specimen) 11/29/2018 9:45 AM EDT 11/29/2018 9:57 AM EDT Narrative Resulting Agency Comment Spec In Lab Anup Hawkins MD CHEMISTRY ORDERAB LES Performing Organization Address [facility] de Phone Number [facility] [place] [address] * Tacrolimus level (11/29/2018 9:45 AM EDT) Pathologist [facility] Tacrolimus 7.4 ng/mL [facility] Comment: Trough therapeutic: ??5-15 ng/mL Performed by ultra-performance liquid chromatography tandem mass spectrometry (UPLCMS/MS). This test was developed and its performance characteristics determined by [facility]. It has not been cleared or approved by the FDA. The laboratory is regulated under CLIA as qualified to perform high-complexity testing. This test is used for clinical purposes. It should not be regarded as investigational or for research. Blood specimen (specimen) 11/29/2018 9:45 AM EDT 11/29/2018 10:29 AM EDT Narrative Resulting Agency Comment Spec In Lab Anup Hawkins MD CHEMISTRY ORDERAB LES Performing Organization Address [facility] Co de Phone Number [facility] [place] [address] * (ABNORMAL) Reticulocyte Count (11/29/2018 9:45 AM EDT) Pathologist [facility] Reticulocyte % 1.1 0.7 - 2.6 % [facility] Retic Abs # 0.040 0.030 - 0.120 x10(6)/mcL [facility] Immature Retic% 20.0(H) 0.0 - 15.6 % [facility] Reticulated Hgb 39.0 31.3 - 40.2 pg [facility] Blood specimen (specimen) 11/29/2018 9:45 AM EDT 11/29/2018 9:57 AM EDT Narrative Resulting Agency Comment Spec In Lab Anup Hawkins MD HEMATOLOGY ORDERA BLES Performing Organization Address [facility] Co de Phone Number [facility] [place] [address] * Uric acid (11/29/2018 9:45 AM EDT) Uric Acid 3.7 3.5 - 8.5 mg/dL [facility] Blood specimen (specimen) 11/29/2018 9:45 AM EDT 11/29/2018 9:57 AM EDT Narrative Resulting Agency Comment Spec In Lab Anup Hawkins MD CHEMISTRY ORDERAB LES Performing Organization Address [facility] Co de Phone Number [facility] [place] [address] * Vitamin D, 25-Hydroxy (11/29/2018 9:45 AM EDT) Vitamin D Total 25 OH 49 30 - 100 ng/mL [facility] Comment: Deficient <10 ng/mL Insufficient 10 to 29 ng/mL Sufficient 30 to 100 ng/mL Potential Intoxication >100 ng/mL According to the [place] National Osteoporosis Foundation, Vitamin D concentrations >30 ng/mL are sufficient to protect bone health. ??The National Kidney Foundation has similarly stated that patients with Vitamin D concentrations <30ng/mL should be considered to be insufficient or deficient. http://[employer].com/nkf-guidelines http://[employer].com/nejm-VitD The [employer] Vitamin D Immunoassay detects both 25-OH Vitamin D2 and 25-OH Vitamin D3, but only a total Vitamin D concentration is reported. Blood specimen (specimen) 11/29/2018 9:45 AM EDT 11/29/2018 1:11 PM EDT Narrative Resulting Agency Comment Spec In Lab Anup Hawkins MD CHEMISTRY ORDERAB LES [facility] [place] [address] documented in this encounter Visit Diagnoses Diagnosis H/O kidney transplant Kidney replaced by transplant S/P kidney transplant Kidney replaced by transplant documented in this encounter Care Teams Invoice Machine Operator Relationship Specialty Start Date End Date Carroll Fuentes DO [address] [place] [address] PCP - General 09/23/11 10/20/22 documented as of this encounter
--- OUTSIDE RECORDS SUMMARY | 2024-04-22 10:55 | XMS_ITS | Encounter Summary ---
Author Organization [facility] Address [facility] [place] [address] Care Team Providers Care Application Trainer Name Role Phone Carroll Fuentes DO Primary Care Provider [phone] Reason for Visit * Consultation (Routine) - Closed Specialty Diagnoses / Procedures Referred By Shashi ko Referred To Contact Vascular Surgery Diagnoses ESRD (end stage renal disease) Sagrario Hodges, RN [address] [place] [address] [place] [address] Aries Tong MD [facility] [place] [address] Referral ID Status Reason Start Date Expiration Date V isits Requested Visits Authorized [id number] Closed Consult Only 11/07/2018 11/07/2019 2 2 Encounter Details Date Type Department Care Team (Late st Contact Info) Description 11/29/2018 1:00 PM EDT Tech [place] [address] Matheus Cop[place] ESRD (end stage renal disease) Social History [...] Procedure Name Priority Date/Time Associated Diagnosis Comments HEMODIALYSIS ACCESS Routine 11/29/2018 1 :04 PM EDT ESRD (end stage renal disease) documented in this encounter Results * First Time Hemodialysis access (11/29/2018 1:04 PM EDT) VB Text Report Department: Vascular Surgery Lab Patient: [id number] (ARNOL, CHRISTY) CPT: G0365 ICD10: Z01.818;N18.6 Referring Physician: SAGRARIO HODGES ?? Phone: Indications: Patient with h/o multiple failed right arm fistula, needs permanent access (currently using indwelling catheter), ? viable veins/arteries ICD10 Diagnosis Code: Z01.818, N18.6 Findings: Shoulder Cephalic Vein, Right ? Lorna.(mm): 2.0 Mid Upper Arm Cephalic Vein, Right ? Lorna.(mm): 2.7 ? Thrombus: NON-OCCLUSIVE THROMBUS Antecubital Fossa Cephalic Vein, Right ? Lorna.(mm): 4.4 Cephalic Vein - Forearm Proximal, Right ? Lorna.(mm): 1.2 ? Thrombus: Sclerosis Mid Forearm Cephalic Vein, Right ? Lorna.(mm): 1.2 ? Thrombus: Sclerosis Wrist Cephalic Vein, Right ? Lorna.(mm): 1.2 ? Thrombus: Sclerosis Mid Upper Arm Basilic Vein, Right ? Lorna.(mm): 3.6 Antecubital Fossa Basilic Vein, Right ? Lorna.(mm): 2.2 Brachial Artery, Right ? Pres. (mmHg): 103 ? Waveform: Triphasic Shoulder Cephalic Vein, Left ? Lorna.(mm): 1.5 Mid Upper Arm Cephalic Vein, Left ? Lorna.(mm): 1.4 Upper Arm Basilic Vein, Left ? Lorna.(mm): 2.4 ? Thrombus: NON-OCCLUSIVE THROMBUS Mid Upper Arm Basilic Vein, Left ? Lorna.(mm): 2.4 Brachial Artery, Left ? Pres. (mmHg): 105 ? Waveform: Triphasic Interpretation: RIGHT: Patent subclavian and axillary vein with [...] bifurcation is just below the antecubital fossa. LEFT: Patent subclavian and axillary vein with [...] level is just below the antecubital fossa. Comparison: ??No previous study in our vascular lab database for comparison. Electronically Signed by: ARIES TONG on 2018-12-02 02:50:37 PM [facility] VB Text Report End of Report [facility] 11/29/2018 1:04 PM EDT Sagrario Hodges RN VASCULAR ORDERABLES [facility] documented in this encounter Visit Diagnoses Diagnosis ESRD (end stage renal disease) End stage renal disease documented in this encounter Care Teams Application Trainer Relationship Specialty Start Date End Date Carroll Fuentes DO [address] [place] [address] PCP - General 09/23/11 10/20/22 documented as of this encounter
--- OUTSIDE RECORDS SUMMARY | 2024-04-22 10:55 | XMS_ITS | Encounter Summary ---
[place] [address] Care Team Providers Care Envelope Addresser Name Role Phone Carroll Fuentes DO Primary Care Provider Encounter Details Date Type Department Care Team (Late st Contact Info) Description 11/08/2018 Orders Only [place] [address] Sagrario Hodges, RN Social History Tobacco Use [...] on filedocumented in this encounter Care Teams Envelope Addresser Relationship Specialty Start Date End Date Carroll Fuentes DO [address] [place] [address] PCP - General 09/23/11 10/20/22 documented as of this encounter
--- OUTSIDE RECORDS SUMMARY | 2024-04-22 10:55 | XMS_ITS | Encounter Summary ---
Author Organization [facility] Address [facility] [place] [address] Care Team Providers Care Gizzard Peeler Name Role Phone AlfredoCarroll geiger Primary Care Provider [phone] Encounter Details Date Type Department Care Team (Late st Contact Info) Description 11/22/2018 Telephone [place] [id number] Tessa Flores MSW [facility] [address] [place] [address] Social History Tobacco Use Types Packs/Day Years [...] Progress Notes * Tessa Flores MSW - 11/22/2018 3:10 PM EDT Worker received a fax from Autumn Swanson from [facility] [facility] in [place], [place] asking that Dr. Hawkins verify that Adama continues to need help with paying his bills. Since Dr. Hawkins is no longer following Adama, worker left a message for Social [employer] and faxed the paperwork back to [employer], deferring to his PCP. documented in this encounter Plan of Treatment Not on file documented as of this encounter Visit Diagnoses Not on filedocumented in this encounter Care Teams Gizzard Peeler Relationship Specialty Start Date End Date Carroll Fuentes DO [address] [place] [address] PCP - General 09/23/11 10/20/22 documented as of this encounter
--- OUTSIDE RECORDS SUMMARY | 2024-04-22 10:55 | XMS_ITS | Encounter Summary ---
[place] [address] Care Team Providers Care Sba Business Development Officer Name Role Phone Carroll Fuentes DO Primary Care Provider [phone] Encounter Details Date Type Department Care Team (Late st Contact Info) Description 11/08/2018 Orders Only Ne[place] [address] Sagrario Hodges, RN Social History Tobacco Use [...] on filedocumented in this encounter Care Teams Sba Business Development Officer Relationship Specialty Start Date End Date Carroll Fuentes DO [address] [place] [address] PCP - General 09/23/11 10/20/22 documented as of this encounter
--- OUTSIDE RECORDS SUMMARY | 2024-04-22 10:55 | XMS_ITS | Encounter Summary ---
Author Organization [facility] [place] [address] Care Team Providers Care Principal Quality Engineer Name Role Phone AlfredoCarroll allison Primary Care Provider [phone] Encounter Details Date Type Department Care Team (Late st Contact Info) Description 08/22/2018 Telephone [place] [address] Anabella Norwood Social History Tobacco Use Types Packs/Day Years [...] encounter Miscellaneous Notes * Telephone Encounter - Anabella Norwood - 08/22/2018 12:43 PM EST Called [facility], [facility], confirmed appt details with Transportation Appt card n/a * Telephone Encounter - Anabella Norwood - 08/22/2018 10:36 AM EST Patient needs f/u appointment(s): With DPS on/around 09/19 1 month OV, s/p SDH , CT prior * Telephone Encounter - Anabella Norwood - 08/22/2018 10:36 AM EST Images from the original note were not included. August 22, 2018 Anand Lugo PA to Me ??? 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 10:31 AM Follow up in [address] Juventino Zhu documented in this encounter Plan of Treatment Not on file documented as of this encounter Visit Diagnoses Not on filedocumented in this encounter Care Teams Principal Quality Engineer Relationship Specialty Start Date End Date Carroll Fuentes DO [address] [place] [address] PCP - General 09/23/11 10/20/22 documented as of this encounter
--- OUTSIDE RECORDS SUMMARY | 2024-04-22 10:55 | XMS_ITS | Encounter Summary ---
Author Organization [facility] Address [facility] [place] [address] Care Team Providers Care Retail Event Assistant Name Role Phone Carroll Fuentes DO Primary Care Provider [phone] Reason for Referral * Consultation (Routine) - Closed Specialty Diagnoses / Procedures Referred By Shashi ko Referred To Contact Vascular Surgery Diagnoses ESRD (end stage renal disease) Sagrario Hodges, RN [address] [place] [address] [place] [address] Odalis Elias MD [facility] VASCULAR [place] [address] Referral ID Status Reason Start Date Expiration Date V isits Requested Visits Authorized [id number] Closed Consult Only 11/07/2018 11/07/2019 2 2 Encounter Details Date Type Department Care Team (Late st Contact Info) Description 11/07/2018 Orders Only [place] [address] Sagrario Hodges, RN ESRD (end stage renal disease) Social History [...] Routine ESRD (end stage renal disease) Ordered: 11/07/2018 documented as of this encounter Visit Diagnoses Diagnosis ESRD (end stage renal disease) End stage renal disease documented in this encounter Care Teams Retail Event Assistant Relationship Specialty Start Date End Date Carroll Fuentes DO [address] [place] [address] [address] [facility] [address] [place] [address] PCP - General 09/23/11 10/20/22 documented as of this encounter
--- OUTSIDE RECORDS SUMMARY | 2024-04-22 10:55 | XMS_ITS | Encounter Summary ---
Author Organization [facility] Address [facility] [place] [address] Care Team Providers Care Malted Milk Masher Name Role Phone AlfredoCarroll allison Primary Care Provider Encounter Details Date Type Department Care Team (Late st Contact Info) Description 09/07/2018 [place] [id number] Anabella Norwood Social History Tobacco Use Types [...] * Telephone Encounter - Kori Hagen - 12/19/2018 12:27 PM EDT Anand Pt had recent CT at local ER on 12/18 in edh. Can you review and let us know if CT is still needed on 12/29 as scheduled at (I assuming we can cancel) Please let us know the f/u plan. Thank you. Kori * Telephone Encounter - Kori Hagen - 12/09/2018 9:30 AM EDT Darrian called from [facility] did not receive CT order refaxed to [phone] * Telephone Encounter - Odalis Jacob - 12/09/2018 8:47 AM EDT Called [facility] to inquire if CT completed = LM Postpone 1w * Telephone Encounter - Anabella Norwood - 11/23/2018 9:[address] order faxed to [facility] to be scheduled and pushed back for review. DPS to call with results * Telephone Encounter - Radha Duron - 09/30/2018 11:10 AM EDT Postponing ~3 months to get prior auth (if needed at that time) prior to sending order. * Telephone Encounter - Anabella Norwood - 09/29/2018 9:06 AM EDT DPS, imaging in [facility]. Please review and let us know how to proceed. Thanks * Telephone Encounter - Odalis Jacob - 09/28/2018 9:39 AM EDT Called [facility] to inquire about imaging being pushed from 09/27 CT Spoke jessica Bush in radiology and informed they are pushing now * Telephone Encounter - Radha Duron - 09/21/2018 6:14 PM EDT Patient scheduled on 09/27/[address] Once imaging is received, forward to DPS for review. * Telephone Encounter - Anabella Norwood - 09/12/2018 3:59 PM EST Order changed to [facility] Auth: [id number] Valid: 08/29-11/27 Faxed to [facility] * Telephone Encounter - Anabella Norwood - 09/12/2018 1:34 PM EST Called and LM for Dania in Dr Mensah office for status update on updating the prior auth location.Dania's extension is [phone] * Telephone Encounter - Anabella Norwood - 09/08/2018 3:13 PM EST Called to initiate prior auth with [employer]. CPT code is already authed and will not be changed as the ordering doc is not in [facility], that department needs to call and change the location. Called Dr Dolan's office, as indicated on the order, informed them of what was requested. Dania tocall us back once the location on the order has been changed through [employer] and will provide auth number and valid dates. Once info is received, send order to [facility] with the following scheduling guidelines: Adama Estrada, 7-11am in [facility], other times available on Sep. * Telephone Encounter - Anabella Norwood - 09/08/2018 9:43 AM EST Called and LM for brother Lucas to call back to inform him of external imaging. Confirm [facility] location to have imaging completed. Once confirmed, call SNF to coordinate and send imaging order DPS and CT cancelled * Telephone Encounter - Anabella Norwood - 09/07/2018 4:00 PM EST Caller: Family member If not the patient: Name of caller: Lucas Relationship to patient: Brother Personal Rep on file?: yes Best time to reach caller: Call back not required Best number to reach caller: [phone] Reason for call: pts brother called asking to have CT done locally at [facility] and have DPS call with results. Is this clinically appropriate? If so, please order external CT Recent Surgery?: no If before 4:00 pm: Inform caller that the typical expectation for a call back is within 1-2 hours. If after 4:00 pm: Inform caller that if the nurse does not call back by the end of the day, they will be called in the AM of the next business day. documented in this encounter Plan of Treatment Not on file documented as of this encounter Visit Diagnoses Not on filedocumented in this encounter Care Teams Malted Milk Masher Relationship Specialty Start Date End Date Carroll Fuentes DO [address] [place] [address] PCP - General 09/23/11 10/20/22 documented as of this encounter
--- OUTSIDE RECORDS SUMMARY | 2024-04-22 10:55 | XMS_ITS | Encounter Summary ---
Author Organization [facility] Address [facility] [place] [address] Care Team Providers Care Technical Mgr Name Role Phone Carroll Fuentes DO Primary Care Provider [phone] Encounter Details Date Type Department Care Team (Late st Contact Info) Description 09/27/2018 Ancillary Procedure Radiology Library at [facility] [place] [address] Tim Torres MD [facility] [address] Social History Tobacco Use Types Packs/Day Years [...] FILM LIBRARY STORAGE ONLY CT HEAD Routine 09/27/2018 12:00 AM EDT documented in this encounter Results * Film Library- Storage Only CT Head (09/27/2018 12:00 AM EDT) Narrative [facility] - 09/28/2018 8:13 PM EDT This exam is auto-finalizing. It's purpose is for storage only. Tim Torres MD IM FILM LIBRARY ORD ERABLES [place], [place] documented in this encounter Visit Diagnoses Not on filedocumented in this encounter Care Teams Technical Mgr Relationship Specialty Start Date End Date Carroll Fuentes DO [address] [place] [address] [address] [place] [address] PCP - General 09/23/11 10/20/22 documented as of this encounter
--- OUTSIDE RECORDS SUMMARY | 2024-04-22 10:55 | XMS_ITS | Encounter Summary ---
Author Organization [facility] Address [facility] [place] [address] Care Team Providers Care School Health Aide Name Role Phone AlfredoCarroll allison Primary Care Provider [phone] Reason for Referral * Diagnostic Test (Routine) - Closed Specialty Diagnoses / Procedures Referred By Shashi ko Referred To Contact Radiology Diagnoses ESRD (end stage renal disease) Procedures IR Dialysis Access - Tunneled Line Munira Whiteside MD [facility] [place] [address] [facility] [address] Referral ID Status Reason Start Date Expiration Date V isits Requested Visits Authorized [id number] Closed Specialty Service Requested 08/23/2018 08/23/2019 1 1 Encounter Details Date Type Department Care Team (Late st Contact Info) Description 08/23/2018 Orders Only Neph[place] [address] Munira Whiteside MD [facility] [place]OLOGY [place] [address] ESRD (end stage renal disease) [...] c/b tacrolimus toxicity, 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 [facility]CF resident. DC placed 07/30/2018. The retention cuff is reported [...] <5cc. Complications: ??No immediate Trever Boyd MD IMG IR ORDERABLES documented in this encounter Visit Diagnoses Diagnosis ESRD (end stage renal disease) End stage renal disease ESRD (end stage renal disease) End stage renal disease documented in this encounter Care Teams School Health Aide Relationship Specialty Start Date End Date Carroll Fuentes DO [address] [facility] 1 [place] [address] PCP - General 09/23/11 10/20/22 documented as of this encounter
--- OUTSIDE RECORDS SUMMARY | 2024-04-22 10:55 | XMS_ITS | Encounter Summary ---
Author Organization [facility] Address [facility] [place] [address] Care Team Providers Care Specimen Boss Name Role Phone Carroll Fuentes DO Primary Care Provider [phone] Reason for Visit * Reason Comments Skin Check Encounter Details Date Type Department Care Team (Late st Contact Info) Description 08/18/2018 11:45 AM EST Office Visit Dermatology at [facility] [address] [place] [address] Chanel Smith MD [facility] [place] [address] Actinic keratoses; Multiple benign nevi; Clinton's disease; History of nonmelanoma skin cancer; History of renal transplant; Immunosuppression due to drug therapy Social History Tobacco Use Types Packs/Day Years [...] as of this encounter Progress Notes * Chanel Smith MD - 08/18/2018 11:45 AM EST DERMATOLOGY - PATIENT NOTE [facility] Date of service: 08/18/2018 Adama Ram : 1960 CC: Skin exam HPI: Adama Ram is a 58 y.o. male here for follow up skin check, s/p renal transplant - No specific lesions that are concerning. No spots that are changing colors, itching, or bleeding. - History of rosacea. No recent flare. He has not been using metronidazole Last FSE: 02/24/2018 Sun protection: Not a whole lot, wears long sleeves and hats and avoids peak sun hours ? Relevant Medical History: Preferred Name: Adama Skin Type: 2 ? Yes/No If yes (date, subtype, location, treatment) Melanoma No ? Dysplastic nevi No ? 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, s/p left parotidectomy and skin cancer resection Tumor size - 4.7 cm Maximal diameter - 1.8 cm Lymphatic Invasion identified Left level 2a/2b lymph nodes negative for malignancy BCC Yes 04/2012, right shoulder, s/p excision 04/2016, right interscapular, nodular with squamous differentiation, s/p excision 04/2016, right lower back, nodular, s/p excision 10/2016, left forearm, nodular and superficial, s/p ED&C Field??cancerization??therapy No 5-FU: IQ: PDT: Ingenol: Diclofenac: Acitretin: Nicotinamide: Immunosuppression Yes S/p kidney transplant on 11/26/2002 - Prograf 1 mg po BID - Cellcept 250 mg po BID Malignancy Yes Renal cell carcinoma Other Yes H/o TBI and seizure disorder Rosacea - metrocream bid prn ? Transplant team: Dr. Hawkins Otolaryngology team: Dr. Miguel Angel Moreno ?? Procedure Screening Questions: ?Yes/No ?If Yes, details Defibrillator/Pacemaker No ?? Artificial Joints No ?? Heart Valves No ?? Blood Thinners Yes Warfarin 5 mg daily Prophylactic Antibiotics No ?? Best way to reach you with results Cell Okay to leave a detailed message ? Relevant Family History: ?? Yes/No If yes, who??(mom/dad/sibling/child) Melanoma No ?? SCC No ?? BCC No ?? Psoriasis or Eczema No ? 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 Marital status: Single Medications: acetaminophen, allopurinol, amLODIPine, calcium carbonate, carvedilol, dilTIAZem, hydrALAZINE, levETIRAcetam, levothyroxine, losartan, multivitamin, pantoprazole, and tacrolimus Allergies Allergen Reactions ??? Benazepril Hcl ??? Codeine Other (See Comments) Patient does not know reaction ??? Hydrochlorothiazide ??? Pollen Extracts Sneezing/runny nose Review of Systems: - General: Feels well. - Skin: No other skin concerns. Examination: - Constitutional: Patient was alert, well-appearing and in no noticeable distress. - Skin exam: The patient was asked to disrobe to the level of their comfort. Full skin examination of the scalp, hair, head, face, neck, back, chest, abdomen, right and left upper extremities, right and left lower extremities and buttocks was normal with the exception of the findings listed below. Notable findings/Assessment/Plan: Actinic keratoses - ill defined gritty papule on the right upper back and nasal tip - Reviewed diagnosis with patient and treatment options. - Patient opted to proceed with liquid nitrogen with two freeze thaw cycles Number of lesions - 2 The patient's consent for liquid nitrogen was obtained. Risks and benefits were explained. The possible need for additional liquid nitrogen was reviewed. Risks of increased pigmentation, decreased pigmentation, blister formation, infection, pain, and recurrence were all discussed. The patient tolerated the procedure well. Wound care was reviewed. Benign nevi - Scattered medium brown macules and papules on the trunk and extremities with reassuring pigment pattern on dermoscopy. - Reassured of benign appearance on exam today. 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 - Reassurance provided. History of NMSCs - Well-healed scars on the locations noted above in history. No lymphadenopathy incervical and clavicular lymph node chains. - NER Elevated skin cancer risk 2/2 due to history of renal transplant (Prograf and CellCept) and high risk SCC - - Recommended q6m provider skin examination RTC: February 2019 for HRSCC Level 1 FSE or PRN if any new or concerning skin lesions Note initiated by Arielle Merida. I am documenting this encounter acting as the scribe for and in the presence of Chanel Smith MD I performed the above scribed service and agree with the accuracy of the documentation in this encounter. Reviewed and signed by: Chanel Smith MD Dermatology [facility] documented in this encounter Plan of Treatment Not on file documented as of this encounter Visit Diagnoses Diagnosis Actinic keratoses Actinic keratosis Multiple benign nevi Benign neoplasm of skin, site unspecified Clinton's disease Other specified dermatoses History of nonmelanoma skin cancer Personal history of other malignant neoplasm of skin History of renal transplant Kidney replaced by transplant Immunosuppression due to drug therapy documented in this encounter Care Teams Specimen Boss Relationship Specialty Start Date End Date Carroll Fuentes DO [address] [facility] [place] [address] PCP - General 09/23/11 10/20/22 documented as of this encounter
--- OUTSIDE RECORDS SUMMARY | 2024-04-22 10:55 | XMS_ITS | Encounter Summary ---
Author Organization [facility] Address [facility] [place] [place] [address] Care Team Providers Care Crushing Machine Operator Name Role Phone Carroll Fuentes Primary Care Provider Reason for Referral * Diagnostic Test (Routine) - Closed Specialty Diagnoses / Procedures Referred By Contac t Referred To Contact Radiology Diagnoses SDH (subdural hematoma) Procedures CT Head wo Contrast (Generic) Dmitriy Hoffman [place]N [facility] [place] [address] [facility] [place] [address] Referral ID Status Reason Start Date Expiration Date V isits Requested Visits Authorized [id number] Closed Specialty Service Requested 08/09/2018 11/07/2018 1 1 Reason for Visit * Diagnostic Test (Routine) - Closed Specialty Diagnoses / Procedures Referred By Contac t Referred To Contact Radiology Diagnoses SDH (subdural hematoma) Procedures CT Head wo Contrast (Generic) Dmitriy Hoffman [place]N [facility] [place] [address] [facility] [place] [address] Referral ID Status Reason Start Date Expiration Date V isits Requested Visits Authorized [id number] Closed Specialty Service Requested 08/09/2018 11/07/2018 1 1 Encounter Details Date Type Department Care Team (Latest Contact Info) Description 08/18/2018 1:21 PM EST - 08/18/2018 11:59 PM EST Hospital Encounter CT Scan at [facility] [place] [place] [address] Dmitriy Hoffman [place] [address] SDH (subdural hematoma) Discharge Disposition: Home Social History Tobacco Use [...] on file documented as of this encounter Medications at Time of Discharge [...] 2018 10/21/2022 documented as of this encounter Plan of Treatment Not on file documented as of this encounter Procedures Procedure Name Priority Date/Time Associated Diagnosis Comments CT HEAD WO CONTRAST (GENERIC) Routine 08/18/2018 3:10 PM EST SDH (subdural hematoma) documented in this encounter Results * CT [...] left parietal lobe. No midline shift. The charles-white differentiation is preserved. The ventricles are unchanged [...] and left parietal lobe. No midlineshift. The charles-white differentiation is preserved. The ventricles are unchanged [...] below. Dmitriy Hoffman APRN IMG CT ORDERABLES documented in this encounter Visit Diagnoses Diagnosis SDH (subdural hematoma) Subdural hemorrhage documented in this encounter Care Teams Crushing Machine Operator Relationship Specialty Start Date End Date Carroll Fuentes DO [address] [facility] 1 [place] [address] PCP - General 09/23/11 10/20/22 documented as of this encounter
--- OUTSIDE RECORDS SUMMARY | 2024-04-22 10:55 | XMS_ITS | Encounter Summary ---
Author Organization [facility] [place] [address] Care Team Providers Care Tipple Engineer Name Role Phone Carroll Fuentes DO Primary Care Provider [phone] Encounter Details Date Type Department Care Team (Late st Contact Info) Description 11/07/2018 Orders Only [place] [address] Sagrario Hodges RN ESRD (end stage renal disease) Social [...] Text Report Department: Vascular Surgery Lab Patient: [id number] (CHRISTY AMBROSE) CPT: G0365 ICD10: Z01.818;N18.6 Referring Physician: SAGRARIO [...] PM EDT Sagrario Hodges RN VASCULAR ORDERABLES Performing Organization Address City/State/[facility] Co de Phone Number [facility] documented in this encounter Visit Diagnoses Diagnosis ESRD (end stage renal disease) End stage renal disease documented in this encounter Care Teams Tipple Engineer Relationship Specialty Start Date End Date Carroll Fuentes DO [address] [place] [address] PCP - General 09/23/11 10/20/22 documented as of this encounter
--- OUTSIDE RECORDS SUMMARY | 2024-04-22 10:55 | XMS_ITS | Encounter Summary ---
Author Organization [facility] Address [facility] [place] [address] Care Team Providers Care Beading Sawyer Name Role Phone Carroll Fuentes DO Primary Care Provider Encounter Details Date Type Department Care Team (Late st Contact Info) Description 09/06/2018 Orders Only Neph[place] [address] Giovani Molina MBBS [facility] [place] [address] Social History Tobacco Use Types Packs/Day Years [...] on filedocumented in this encounter Care Teams Beading Sawyer Relationship Specialty Start Date End Date Carroll Fuentes DO [address] [place] [address] PCP - General 09/23/11 10/20/22 documented as of this encounter
--- OUTSIDE RECORDS SUMMARY | 2024-04-22 10:55 | XMS_ITS | Encounter Summary ---
[place] [address] Care Team Providers Care Production Assembler Name Role Phone Carroll Fuentes DO Primary Care Provider [phone] Encounter Details Date Type Department Care Team (Late st Contact Info) Description 09/07/2018 Orders [place] [address] Henna Cerrato RN SDH (subdural hematoma) Social [...] hemorrhage documented in this encounter Care Teams Production Assembler Relationship Specialty Start Date End Date Carroll Fuentes DO [address] [place] [address] PCP - General 09/23/11 10/20/22 documented as of this encounter
--- OUTSIDE RECORDS SUMMARY | 2024-04-22 10:55 | XMS_ITS | Encounter Summary ---
Author Organization [facility] [place] [address] Care Team Providers Care Auto Seat Cover Installer Name Role Phone AlfredoCarroll allison Primary Care Provider [phone] Encounter Details Date Type Department Care Team (Late st Contact Info) Description 11/29/2018 10:20 AM EDT Office Visit [place] [address] Anup Hawkins MD [facility] [place] [address] H/O kidney transplant; ESRD (end stage renal disease); Failed kidney transplant Social History Tobacco Use Types [...] Sign Reading Time Taken Comments Blood Pressure - - Pulse 52 11/29/2018 10:22 AM EDT Temperature - - Respiratory Rate - - Oxygen Saturation 98% 11/29/2018 10:22 AM EDT Inhaled Oxygen Concentration - - Weight 84.2 kg (185 lb 9.6 oz) 11/29/2018 10:22 AM EDT Height - - Body Mass Index 26.42 08/01/2018 5:33 AM EST documented in this encounter Progress Notes * Dre Jenkins LPN - 11/29/2018 10:20 AM EDT Confirmed patient's last name and Reviewed tobacco use, all allergies. Pt does not manage Rx anymore. Managed by caretakers. Both brother and pt are unaware. * Anup Hawkins MD - 11/29/2018 10:20 AM EDT Transplant??Medicine??Follow Up ? Date: 11/29/2018 Patient: Adama Ram Transplant Date: 11/26/2002 ? Transplant organ/Indication: ??Kidney / IgA nephropathy, Prograf toxicity ? Transplant ID:?? Adama returned to clinic with his brother Lucas for presumed follow up of his failed transplant. Whenasked why he was here apparently this was pre arranged via computer for his annual visit. I used this time to explain to Adama and his brother there consequences of the events which occurred over the last 6 months and their effects upon his graft. He has two main events: 1)asystolic arrest due to profound blood loss due to ruptured AVF 2)traumatic head injury resulting in SAH He has been on HD now at the [facility] unit which is across the street from his extended care facility. ?? Mr. Adama Ram is a??well known??58??y.o. male who is Status Post Kidney transplantation on 11/26/02. Post-op course was significant for delayed graft function, recurrent IgA nephropathy and Prograf toxicity, and the requirement of adjusting his pre-existing anticonvulsants. Patient was initially??referred by his PCP - Dr. Fuentes. His first graft lasted 15 5/12+??years from transplant. He had his left arm AVF taken down due to massive size, and increased risk for high output CHF. In 2016 he underwent a?left lummi nephrectomy??due to the finding of a papillary carcinoma:??[id number] papillary type 2 RCC, OLIVERIO.? 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 Patient remains on tacrolimus alone to avoid the risk of hyperacute rejection and graft rupture as well as preventing DSA from forming. Patient is compliant with his medication regimen. Patient denies any CP but has lethargy, lack of stamina, SOB, TORRES. Patient denies fever/ chills and denies any N/V/D or change in PO intake.??All other review of systems were neither positive or negative in 12 organ systems except for progressive fluid retention. ? Medications: Current Outpatient Medications: ??? dilTIAZem (CARTIA XT) 120 mg Capsule, [...] mouth daily., Disp: 90 tablet, Rfl: 0 ? Allergies / ADRs: ? Allergies Allergen Reactions ??? Benazepril Hcl ? Codeine Other (See Comments) ? Patient does not know reaction ??? Hydrochlorothiazide ? Pollen Extracts ? Sneezing/runny nose ?? Immunization History Administered Date(s) Administered ??? Hepatitis B Vaccine, unspecified formulation 10/31/2001 ??? Influenza PF, Split 03/12/2016 ??? Influenza Vaccine w/Preservative, Split 04/20/2013 ??? Influenza Vaccine, Whole 06/11/2006, 04/09/2009 ??? Pneumococcal Conjugate (13 Valent) 05/20/2016 ??? Pneumococcal Polyvalent 23 05/23/2013 ??? Tdap Vaccine 11/26/2016 ? PHYSICAL EXAM: ?? Vitals Office Visit from 11/29/2018 in Solid Organ Transplant at [place] Weight 84.2 kg (185 lb 9.6 oz) Heart Rate 52 BP -- [86/P] SpO2 98 % Markedly edematous porfirio. 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 Gen - AAO x 3 in NAD, chronically ill-appearing; pale; mentation a bit slower than baseline?? Skin - No exanthem. Diffuse edema HEENT - Mucous membranes moist. Chest: Lungs NOT clear to ausculatation w/o wheezes/ rhonchi up 1/3 from bibasilar areas with crackles, not clearing with cough. Heart - S1 and S2 accentuated, w/o murmur, gallop, or rub. JVP elevated to 6 cm H2O Abd - Rotund + BS. No bruit. Non tender. No organomegaly. Ext - Warm. No cyanosis. 1+ dependent edema to thighs bilaterally. ?? Impression/ Plan: Mr. Ram is a 58??yr old gentleman w/ hx of failed first kidney transplant 15+ yr who presents totransplant clinic to discuss options??after his recent prolonged admission for asystolic arrest dueto acute profound hemorrhage due to ruptured left arm AVF??and his recent SAH and left eyebrow laceration, which caused his graft to accelerate failure Transplant Status/ Graft Function: -s/p donor kidney transplant 11/26/02; CKD stage 5 -etiology of ESRD is secondary to??IgA Nephropathy, CTG Post-Transplant ??Course complicated by delayed graft function, recurrent IgA and prograf toxicity and TRISTIAN ->ATN and graft failure due to asystolic arrest due to profound blood loss ??main low dose tacrolimus to prevent accelerated rejection, DSA I would not reconsider him for transplant at this time. He remains mentally confused about the consequences of his failed graft, asystolic arrest and SAH due to a traumatic fall. If he becomes more independent reconsider transplant. ?? ? Discussion with the patient and/or family concerned the following: ?Diagnostic results or recommended studies ?Prognosis; ?Risks and benefits of management; ?Instructions for management; ?Compliance with treatment; ?Risk factor reduction; ?Patient and family education. ? Total time: 25 of 30 min??in direct face to face pet adoption counselor with Adama and his brother documented in this encounter Plan of Treatment Not on file documented as of this encounter Results * BKV Quant Urine (11/29/2018 10:02 AM EDT) Pathologist [facility] BKV Urine Result Not Detected [facility] BKV Urine Interp BK Virus Urine Result Interpretation Result: BK Virus not detected Specimen type: urine Assay Range: 2.80-7.80 log copies/mL (6.28x10^2 - 6.28x10^7 copies/mL) Methods: Quantitative real-time polymerase chain reaction (PCR) of viral DNA isolated from plasma was performed using [employer] BKV analyte-specific reagents and the TISSUELAB System that automates both nucleic acid isolation [...] [facility] [facility] [employer] (CG[employer]) Laboratory at [facility]. It has not been cleared or approved by the FDA. The laboratory is regulated under CLIA as qualified to perform high-complexity testing. This test is used for clinical purposes. It should not be regarded as investigational or for research. [facility] Comment: [VERIFIED DATE]12.01.18 Verified By:Amy Turk (Electronic Signature) Urine specimen (specimen) 11/29/2018 10:02 AM EDT 11/29/2018 11:27 AM EDT Narrative Resulting Agency Comment Spec In Lab Anup Hawkins MD MOLECULAR ORDERAB LES [facility] [place] [address] * Vitamin D, 25-Hydroxy (11/29/2018 9:45 AM EDT) Pathologist [facility] Vitamin D Total 25 OH 49 30 - 100 ng/mL [facility] Comment: Deficient <10 ng/mL Insufficient 10 to 29 ng/mL Sufficient 30 to 100 ng/mL Potential Intoxication >100 ng/mL According to the US National Osteoporosis Foundation, Vitamin D concentrations >30 ng/mL are sufficient to protect bone health. ??The National Kidney Foundation has similarly stated that patients with Vitamin D concentrations <30ng/mL should be considered to be insufficient or deficient. http://DalloulNW/nkf-guidelines http://DalloulNW/nejm-VitD The [employer] Vitamin D Immunoassay detects both 25-OH Vitamin D2 and 25-OH Vitamin D3, but only a total Vitamin D concentration is reported. Blood specimen (specimen) 11/29/2018 9:45 AM EDT 11/29/2018 1:11 PM EDT Narrative Resulting Agency Comment Spec In Lab Anup Hawkins MD CHEMISTRY ORDERAB LES Performing Organization Address City/[facility]/ZIP Co de Phone Number [facility] [place] [address] * Uric acid (11/29/2018 9:45 AM EDT) Uric Acid 3.7 3.5 - 8.5 mg/dL [facility] Blood specimen (specimen) 11/29/2018 9:45 AM EDT 11/29/2018 9:57 AM EDT Narrative Resulting Agency Comment Spec In Lab Anup Hawkins MD CHEMISTRY ORDERAB LES Performing Organization Address City/[facility]/ZIP Co de Phone Number [facility] [place] [address] * (ABNORMAL) Reticulocyte Count (11/29/2018 9:45 AM EDT) Reticulocyte % 1.1 0.7 - 2.6 % [facility] Retic Abs # 0.040 0.030 - 0.120 x10(6)/mcL [facility] Immature Retic% 20.0(H) 0.0 - 15.6 % [facility] Reticulated Hgb 39.0 31.3 - 40.2 pg [facility] Blood specimen (specimen) 11/29/2018 9:45 AM EDT 11/29/2018 9:57 AM EDT Narrative Resulting Agency Comment Spec In Lab Anup Hawkins MD HEMATOLOGY ORDERA BLES Performing Organization Address [facility] de Phone Number [facility] [place] [address] * Tacrolimus level (11/29/2018 9:45 AM EDT) Tacrolimus 7.4 ng/mL [facility] Comment: Trough therapeutic: ??5-15 ng/mL Performed by ultra-performance liquid chromatography tandem mass spectrometry (UPLCMS/MS). This test was developed and its performance characteristics determined by [facility]. It has not been cleared or approved [...] MD CHEMISTRY ORDERAB LES Performing Organization Address [facility] Co de Phone Number [facility] [place] [address] * PTH (11/29/2018 9:45 AM EDT) Parathyroid Hormone 52 15 - 65 pg/mL [facility] Blood specimen (specimen) 11/29/2018 9:45 AM EDT 11/29/2018 9:57 AM EDT Narrative Resulting Agency Comment Spec In Lab Anup Hawkins MD CHEMISTRY ORDERAB LES Performing Organization Address [facility] Co de Phone Number [facility] [place] [address] * Phosphorus (11/29/2018 9:45 AM EDT) Phosphorus 3.6 2.5 - 4.5 mg/dL [facility] Blood specimen (specimen) 11/29/2018 9:45 AM EDT 11/29/2018 9:57 AM EDT Narrative Resulting Agency Comment Spec In Lab Anup Hawkins MD CHEMISTRY ORDERAB LES Performing Organization Address City/[facility]/ZIP Co de Phone Number [facility] [place] [address] * Magnesium (11/29/2018 9:45 AM EDT) Magnesium 0.87 0.69 - 1.07 mmol/L [facility] Blood specimen (specimen) 11/29/2018 9:45 AM EDT 11/29/2018 9:57 AM EDT Narrative Resulting Agency Comment Spec In Lab Anup Hawkins MD CHEMISTRY ORDERAB LES Performing Organization Address City/[facility] Co de Phone Number [facility] [place] [address] * Lipid Panel (11/29/2018 9:45 AM EDT) Cholesterol, Total 162 mg/dL [facility] Comment: Lower Risk: <200 mg/dL Average Risk: 200-239 mg/dL Higher Risk: >ov=307 mg/dL Triglyceride 103 mg/dL [facility] Comment: Average Risk/Lower Risk: <150 mg/dL Borderline High Risk: 150-199 mg/dL High Risk: 200-499 mg/dL Very High Risk: >zu=703 mg/dL HDL Cholesterol 34 mg/dL [facility] Comment: Males: ?? Higher Risk: <40 mg/dL Females: ?? HIgher Risk: <50 mg/dL LDL Cholesterol 107 mg/dL [facility] Comment: Lowest Risk: <100 mg/dL Lower Risk: 100-129 mg/dL Borderline High Risk: 130-159 mg/dL High Risk: 160-189 mg/dL Very High Risk: >ma=732 mg/dL Cholesterol/HDL Ratio 4.8 ratio [facility] Lipid Interpretation See Note [facility] Comment: Lipid management should be guided by a patient? s ASCVD risk, goals and preferences. ACC/AHA Guidelines recommend high intensity statin if clinical ASCVD or LDL greater than or equal to 190 mg/dL. http://Phanfare.com/XIM-PDR-Ahiiuhycw Adults aged 40-75 with LDL 70-189 mg/dL should have their 10 year ASCVD risk estimated with the ACC/AHA ASCVD risk commercial roofing estimator http://tools.acc.org/KNXLW-Mnbc-Xzscrkqme/ Statin should be discussed if risk greater [...] Lab Anup Hawkins MD CHEMISTRY ORDERAB LES [facility] [place] [address] * Lavender Tube HOLD (11/29/2018 9:45 AM EDT) Pathologist [facility] Lavender Hold Sample in lab. [facility] Blood specimen (specimen) 11/29/2018 9:45 AM EDT 11/29/2018 9:57 AM EDT Anup Hawkins MD HEMATOLOGY ORDERA BLES [facility] [place] [address] * Hemoglobin A1c (11/29/2018 9:45 AM EDT) Hemoglobin A1c 5.4 4.3 - 5.6 % [facility] Comment: Reference Range: 4.3 - [...] Mellitus, Diabetes Care 2013; 36: Suppl. 1, S67-01 Estimated Average Glucose 108 mg/dL [facility] Comment: eAG equivalents for HbA1c percentages: HbA1c(%) ?eAG(mg/dL) 6.0 ?126 6.5 ?140 7.0 ?154 7.5 ?169 8.0 ?183 8.5 ?197 9.0 ?212 9.5 ?226 10.0 ? 240 Limitations: The eAG calculation has not been validated on women, individuals below 18 years old and above 70 years old, and individuals with hemoglobinopathies. Additional resources are available on the ADA website. Rakesh GREWAL, Asihsh J, Lizzette R, et al. ??Translating the A1C assay into estimated average glucose values. ??Diabetes Care 2008:31(8):5135-9449. Blood specimen (specimen) 11/29/2018 9:45 AM EDT 11/29/2018 9:57 AM EDT Narrative Resulting Agency Comment Spec In Lab Anup Hawkins MD CHEMISTRY ORDERAB LES [facility] [place] [address] * Gold Tube HOLD (11/29/2018 9:45 AM EDT) Gold Hold Sample in lab. [facility] Blood specimen (specimen) 11/29/2018 9:45 AM EDT 11/29/2018 9:57 AM EDT Anup Hawkins MD CHEMISTRY ORDERAB LES Performing Organization Address [facility] Co de Phone Number [facility] [place] [address] * (ABNORMAL) CMP w/fasting Glucose (11/29/2018 9:45 AM EDT) Glucose Fasting 104(H) 65 - 99 mg/dL [facility] Comment: ?Fasting* Glucose Interpretive Criteria [...] of Diabetes Mellitus, Position Statement from the [place] Diabetes Association. ??Diabetes Care, Volume 33, Supplement 1, Jul 2009 Blood Urea Nitrogen 43(H) 10 - 20 mg/dL [facility] Creatinine 7.34(H) 0.80 - 1.50 mg/dL [facility] Sodium 137 135 - 145 mmol/L [facility] Potassium 5.8(H) 3.5 - 5.0 mmol/L [facility] Comment: Please note: ??Patients with WBC >100,000 may have falsely elevated Potassium levels. ??For accurate Potassium quantification in these patients send serum separator tube (gold top) for subsequent determinations. ??Contact the Clinical Chemistry Laboratory if there are any questions. Chloride 95(L) 98 - 107 mmol/L [facility] Carbon Dioxide 26 22 - 31 mmol/L [facility] Anion Gap 16(H) 5 - 15 mmol/L [facility] Calcium 9.4 8.5 - 10.5 mg/dL [facility] Protein, Total 7.7 6.1 - 8.0 gm/dL [facility] Albumin 4.2 3.2 - 5.2 gm/dL [facility] Aspartate Aminotransferase 14 0 - 39 unit/L [facility] Alanine Aminotransferase 13 0 - 55 unit/L [facility] Alkaline Phosphatase 93 40 - 120 unit/L [facility] Bilirubin, Total 0.5 0.2 - 1.3 mg/dL [facility] Est Glomerular Filtration Rate 7(L) >=60 mL/min/1. 73 m?? [facility] Comment: The eGFR was calculated using the CKD-EPI equation. As with all creatinine based estimates of kidney function, eGFR values calculated with the CKD-EPI equation are not accurate in patients with acute kidney failure, extremes of body mass or the acutely ill. http://DalloulNW/DHnkf eGFR 9(L) >=60 mL/min/1. 73 m?? [facility] Comment: The eGFR was calculated using the CKD-EPI equation. As with all creatinine based estimates of kidney function, eGFR values calculated with the CKD-EPI equation are not accurate in patients with acute kidney failure, extremes of body mass or the acutely ill. http://DalloulNW/DHMCnkf Blood specimen (specimen) 11/29/2018 9:45 AM EDT 11/29/2018 9:57 AM EDT Narrative Resulting Agency Comment Spec In Lab Anup Hawkins MD CHEMISTRY ORDERAB LES [facility] [place] [address] * 1,25-dihydroxycholecalciferol (11/29/2018 9:45 AM EDT) Vit D 1,25 Dihydroxy (NOVEMBER) 24 18 - 64 pg/mL [facility] Comment: ADDITIONAL INFORMATION This test was developed and its performance characteristics determined by [facility] in a manner consistent with CLIA requirements. This test has not been cleared or approved by the U.S. Food and Drug Administration. Test Performed by: [facility] [address] [place] [address] Blood specimen (specimen) 11/29/2018 9:45 AM EDT 11/29/2018 12:16 PM EDT Narrative Resulting Agency Comment Spec In Lab Anup Hawkins MD LAB SEND OUT RYAN CALERO [facility] [place] [address] documented in this encounter Visit Diagnoses Diagnosis H/O kidney transplant Kidney replaced by transplant ESRD (end stage renal disease) End stage renal disease Failed kidney transplant Complications of transplanted kidney documented in this encounter Care Teams Auto Seat Cover Installer Relationship Specialty Start Date End Date Carroll Fuentes DO [address] [place] [address] PCP - General 09/23/11 10/20/22 documented as of this encounter
--- OUTSIDE RECORDS SUMMARY | 2024-04-22 10:56 | XMS_ITS | Encounter Summary ---
Author Organization [facility] Address [facility] [place] [address] Care Team Providers Care Glass Polisher Name Role Phone AlfredoCarroll allison Primary Care Provider [phone] Reason for Referral * Diagnostic Test (Routine) - Closed Specialty Diagnoses / Procedures Referred By Shashi ko Referred To Contact Radiology Diagnoses SDH (subdural hematoma) Procedures CT Head wo Contrast (Generic) Anand Lugo PA [facility] [place] [address] [facility] [place] [address] Referral ID Status Reason Start Date Expiration Date V isits Requested Visits Authorized [id number] Closed Specialty Service Requested 07/29/2018 10/27/2018 1 1 Reason for Visit * Reason Comments Advice Only 4-6wk OV, tSAH s/p l ikely seizure and fall Encounter Details Date Type Department Care Team (Late st Contact Info) Description 06/29/2018 1:00 PM EST Office [place] [address] Anand Lugo PA [facility] [place] [address] SDH (subdural hematoma) Social History Tobacco Use [...] Sign Reading Time Taken Comments Blood Pressure 175/117 06/29/2018 12:52 PM EST Pulse 58 06/29/2018 12:52 PM EST Temperature - - Respiratory Rate - - Oxygen Saturation - - Inhaled Oxygen Concentration - - Weight 96.2 kg (212 lb 1.3 oz) 06/29/2018 12:52 PM EST Height 177.8 cm (5' 10) 06/29/2018 12:52 PM EST Body Mass Index 30.43 06/29/2018 12:52 PM EST documented in this encounter Progress Notes * Anand Lugo PA - 06/29/2018 1:00 PM EST Name: Adama Ram : 1960 PCP: Carroll Fuentes DO REF: Dmitriy Hoffman Date of Service: 06/29/2018 Chief Complaint Patient presents with ??? Advice Only 4-6wk OV, tSAH s/p likely seizure and fall I just saw Mr. Adama Ram in the Neurosurgery clinic today for follow up of a right frontal contusion. He is accompanied by his brother. He has no significant complaints today related to his head injury and in fact feels pretty good at this time. I felt he had some mild weakness in the LUE at the biceps. His head CT today demonstrates resolution of the previously seen right frontal contusion butslow development of a left convexity extra axial collection, hypodense to brain / hyperdense to CSF, about 8 mm in maximal thickness producing minimal mass effect. I recommended he continue to hold his blood thinning medications in light of this finding and follow up again in 4 weeks with a repeat CT scan of the head for re-evaluation. Anand Lugo PA-C, MS Physician Circulator Section of Neurosurgery [place], [address] documented in this encounter Plan of Treatment Not on file documented as of this encounter Results * CT Head wo Contrast (Generic) (08/01/2018 5:26 PM EST) Anatomical Region Laterality Modality Head Computed Tomogra phy Impressions 08/01/2018 5:56 PM EST Interval significant increase in size of extra-axial collection suggesting acute on chronic hemorrhage with increase in mass effect on the adjacent left posterior frontal and parietal lobe parenchyma. Findings phoned to the neurosurgery on-call resident at time of exam. The hospitalist service was also phoned as patient appears to been admitted Thank you for letting us participate in the care of this patient. For questions regarding this report, please contact the number below. ? Electronically signed by: Damián Chacko MD, [facility] ([phone]), at 08/01/2018 5:56 PM Narrative 08/01/2018 5:56 PM EST EXAMINATION: CT HEAD WO CONTRAST (GENERIC) CLINICAL HISTORY: follow up of new left convexity extra axial collection TECHNIQUE: CT head performed without intravenous contrast administration. COMPARISON: 06/29/2018 FINDINGS: Review of bone windows demonstrates clear appearance visualized mastoid air cells, middle ear cavities and visualized paranasal sinuses. No lytic or blastic disease. There is interval significant increase in size of a left posterior frontal parietal extra-axial collection with mixed attenuation. The lentiform appearance of this suggests acute on chronic hemorrhage, hemorrhage into a mature clot. This is best seen on image 45 of series 602 and image 48 of series 601. This is also well seen on image 27 of series 2. The collection now measures greater than 7 cm in the AP dimension by 3.5 cm transverse by approximately 14 mm thick. There is low attenuation the periventricular white matter bilaterally, left greater than right primarily adjacent to frontal horns and atrium lateral ventricles. There is mild asymmetry in the ventricles left side larger than right consistent with parenchymal loss. No cortical infarctions. No generalized mass effect. Procedure Note Damián Vargas MD - 08/01/2018 EXAMINATION: CT HEAD WO CONTRAST (GENERIC) CLINICAL HISTORY: follow up of new left convexity extra axial collection TECHNIQUE: CT head performed without intravenous contrast administration. COMPARISON: 06/29/2018 FINDINGS: Review of bone windows demonstrates clear appearance visualized mastoidair cells, middle ear cavities and visualized paranasal sinuses. No lytic orblastic disease. There is interval significant increase in size of a left posteriorfrontal parietal extra-axial collection with mixed attenuation. The lentiformappearance of this suggests acute on chronic hemorrhage, hemorrhage into a matureclot. This is best seen on image 45 of series 602 and image 48 of series 601.This is also well seen on image 27 of series 2. The collection now measuresgreater than 7 cm in the AP dimension by 3.5 cm transverse by approximately 14 mmthick. There is low attenuation the periventricular white matter bilaterally,left greater than right primarily adjacent to frontal horns and atriumlateral ventricles. There is mild asymmetry in the ventricles left side largerthan right consistent with parenchymal loss. No cortical infarctions. Nogeneralized mass effect. IMPRESSION Interval significant increase in size of extra-axial collection suggestingacute on chronic hemorrhage with increase in mass effect on the adjacent left posterior frontal and parietal lobe parenchyma. Findings phoned to the neurosurgery on-call resident at time of exam. The hospitalist service was also phoned as patient appears to beenadmitted Thank you for letting us participate in the care of this patient. Forquestions regarding this report, please contact the number below. Electronically signed by: Damián Chacko MD, [facility]([phone]), at 08/01/2018 5:56 PM Tim Torres MD IMG CT ORDERABLES documented in this encounter Visit Diagnoses Diagnosis SDH (subdural hematoma) Subdural hemorrhage SDH (subdural hematoma) Subdural hemorrhage documented in this encounter Care Teams Glass Polisher Relationship Specialty Start Date End Date Carroll Fuentes DO [address] [place] [address] PCP - General 09/23/11 10/20/22 documented as of this encounter
--- OUTSIDE RECORDS SUMMARY | 2024-04-22 10:56 | XMS_ITS | Encounter Summary ---
Author Organization [facility] Address [facility] [place] [address] Care Team Providers Care Montessori Lead Teacher Name Role Phone AlfredoCarroll allison Primary Care Provider [phone] Reason for Visit * Reason Comments Kidney Transplant Follow-up Chronic Kidney Disease Immunotherapy Encounter Details Date Type Department Care Team (Late st Contact Info) Description 06/07/2018 11:20 AM EST Office Visit [place] [address] Anup Hawkins MD [facility] [place] [address] Anemia of chronic renal failure, unspecified CKD stage; IgA nephropathy; Aftercare following organ transplant; CKD (chronic kidney disease) stage 4, GFR 15-29 ml/min; Prophylactic immunotherapy; H/O kidney transplant Social History Tobacco Use Types [...] Sign Reading Time Taken Comments Blood Pressure 166/10 06/07/2018 11:07 AM EST Pulse 54 06/07/2018 11:07 AM EST Temperature 36.6 ??C (97.8 ??F) 06/07/2018 1 1:07 AM EST Respiratory Rate - - Oxygen Saturation 99% 06/07/2018 11: 07 AM EST Inhaled Oxygen Concentration - - Weight 90.6 kg (199 lb 12.8 oz) 018 11:07 AM EST Height - - Body Mass Index 27.1 06/02/2018 8:00 PM EST documented in this encounter Progress Notes * Crystal Brown CMA - 06/07/2018 11:20 AM EST Here with Brother Lucas Confirmed patient's last name and Reviewed tobacco use, all allergies and meds, dose and frequency. Patient not familiar with his meds. [facility] No additional OTC meds, nutritional or herbal supplements. Reviewed education tab. Reviewed immunizations; UTD C/o fell on 06/03, possible seizure. Deferred elevated BP to senior staff specialized employment Per Dr. Anup Hawkins verbal readback orders Christy Ambrose received subQ injection of procrit 20,[address] Hawkins Christy Ambrose should return in one week for repeated labs and then return to the clinic for another injection if hemoglobin remains below 10. Chirsty Delunaon stated understanding of the upcoming labs and possible injection. * Anup Hawkins MD - 06/07/2018 11:20 AM EST Images from the original note were not included. Transplant Medicine Follow Up ? Date: 06/07/2018 Patient: Christy Ambrose Transplant Date: 11/26/2002 ? Transplant organ/Indication: ??Kidney / IgA nephropathy, Prograf toxicity ? Transplant ID:?? Christy returned to clinic with his brother Lucas after being acutely admitted after developing lightheadedness, and falling down the stairs of his ECF. He was admitted he without LOC but developed lacerations periorbitally without fractures.He was found to have a SAH, had his anticoagulation held and his left eyebrow laceration was sutured. He is back at the [facility], and reports LE edema and weight gain. He has not fully recovered from his hemorrhagic asystolic arrest (see previous admit to [facility])his BPs are also higher than baseline and he is progressing in his CKD. Mr. Christy Ambrose is a well known 57??y.o. male who is Status Post Kidney transplantation on 11/26/02. Post-op course was significant for delayed graft function, recurrent IgA nephropathy and Prograf toxicity, and the requirement of adjusting his pre-existing anticonvulsants. Patient was initially??referred by his PCP - Dr. Fuentes. Patient is out 15+??years from transplant. He had his left arm AVF taken down due to massive size, and increased risk for high output CHF. 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 His asystolic arrest was nearly 20 min but his mentation seems less than baseline. His graft creatinine failed to recover completely and his creatinine now ranges between 3.0-3.5 mg/dL. He is clearlyin stage 4 CKD. ?? 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 Patient remains on tacrolimus and cellcept. Patient is compliant with his medication regimen. Patient denies any CP, SOB, TORRES or palpitations. Patient denies fever/ chills and denies any N/V/D or change in PO intake.??All other review of systems were neither positive or negative. ? Healthcare maintenance for a transplant recipient: Immunizations (no live virus or modified bacterial vaccines) ?Prevnar 13 once in a lifetime ?Pneumovax 23 every 5 years ?Tdap every 10 years ?Annual flu shot Annual PCP exam Annual SADAF and PSA for males over 40 Annual pap gyne for females (pap if cervix present; visual inspection if no cervix present) Annual mammogram for females over 40, younger than 40 if family hx positive Every 5 year colonoscopy after age 50 Monthly self skin exam, daily spf 50 sunblock, annual derm consult if hx of skin cancer Annual eye exam Semi annual dental evaluation with prophylactic antibiotics Cardiac stress test after age 50, every 3 years for diabetics, every 5 for non diabetics [place] kidney ultrasound looking for renal cell CA, every 5 years post transplant Bone density assessment every 9-12 years post transplant Annual fasting lipid profile Annual PTH-Vit D3 assessment until normalized Annual spot urine for creatinine, protein, calcium, phosphate, magnesium? ROS: Denies fevers, chills, nausea, vomiting, diarrhea, abd pain, chest pain, sob. All other review of systems were neither positive or negative ? Medications: Current Outpatient Medications: ??? hydrALAZINE (APRESOLINE) 25 mg Tablet, Take 75 mg by mouth 3 times daily., Disp: , Rfl: ??? furosemide (LASIX) 40 mg Tablet, Take 1 tablet by mouth daily., Disp: 30 tablet, Rfl: 11 ??? calcium carbonate 648 mg calcium Tablet, Take 1 tablet by mouth 3 times daily. Take on empty stomach., Disp: 90 tablet, Rfl: 11 ??? acetaminophen (TYLENOL) 500 mg Tablet, Take 2 tablets by mouth every 6 hours., Disp: 30 tablet,Rfl: 1 ??? cephalexin (KEFLEX) 500 mg Capsule, Take 1 capsule by mouth 2 times daily for 53 days., Disp: 40 capsule, Rfl: 0 ??? losartan (COZAAR) 100 mg Tablet, Take 1 tablet by mouth every morning., Disp: 90 tablet, Rfl: 3 ??? sodium bicarbonate 650 mg Tablet, Take 2 tablets by mouth 3 times daily., Disp: 60 tablet, Rfl:3 ??? levETIRAcetam (KEPPRA) 500 mg Tablet, Take 500 mg by mouth 2 times daily. Take 500 mg every morning and 250 mg every morning., Disp: , Rfl: ??? amLODIPine (NORVASC) 2.5 mg Tablet, Take 2.5 mg by mouth daily., Disp: , Rfl: ??? senna-docusate (PERICOLACE) 8.6-50 mg Tablet, Take 2 tablets by mouth 2 times daily., Disp: 60 tablet, Rfl: 11 ??? tacrolimus (PROGRAF) 1 mg Capsule, Take 1 capsule by mouth nightly., Disp: , Rfl: ??? tacrolimus (PROGRAF) 0.5 mg Capsule, Take 3 capsules by mouth daily., Disp: , Rfl: ??? metoprolol tartrate (LOPRESSOR) 50 mg Tablet, Take 1 tablet by mouth 3 times daily., Disp: , Rfl: ??? cholecalciferol, Vitamin D3, 50,000 unit Capsule, Take 1 capsule by mouth once a week., Disp: 12 capsule, Rfl: 3 ??? allopurinol (ZYLOPRIM) 100 mg Tablet, Take 1 and 1/2 tablet daily., Disp: 45 tablet, Rfl: 11 ??? pantoprazole (PROTONIX) 20 mg Tablet, Delayed Release (E.C.), Take 1 tablet by mouth 2 times daily., Disp: 180 tablet, Rfl: 3 ??? docusate sodium (COLACE) 100 mg Capsule, Take 1 capsule by mouth 2 times daily as needed for Constipation., Disp: , Rfl: ??? dilTIAZem (CARTIA XT) 120 mg Capsule, Sust. Release 24 hr, Take 1 capsule by mouth daily., Disp: 90 capsule, Rfl: 3 ??? mycophenolate (CELLCEPT) 250 mg Capsule, Take 1 capsule by mouth 2 times daily. Kidney Transplant Z94.0. Transplant Date; 11-26-02, Disp: 180 capsule, Rfl: 11 ??? multivitamin Capsule, Take 1 capsule by mouth daily., Disp: , Rfl: ??? levothyroxine (SYNTHROID) 100 mcg Tablet, Take 100 mcg by mouth daily. , Disp: , Rfl: Allergies / ADRs: ? Allergies Allergen Reactions [...] ??? Tdap Vaccine 11/26/2016 ? PHYSICAL EXAM: Vitals Office Visit from 06/07/2018 in Solid Organ Transplant at [place] Weight 90.6 kg (199 lb 12.8 oz) Temp 36.6 ??C (97.8 ??F) Temp src Oral Heart Rate 54 BP 166/10 (Abnormal) Patient Position Sitting SpO2 99 % ?? Gen - AAO x 3 in NAD, chronically ill-appearing; ecchymotic supra brow area, sutures intact; mentation a bit slower than baseline Skin - No exanthem. HEENT - Mucous membranes moist. Chest: Lungs clear to ausculatation w/o wheezes/ rhonchi/ crackles. Heart - S1 and S2 clear w/o murmur, gallop, or rub. JVP not elevated. Abd - Soft. + BS. No bruit. Non tender. No organomegaly. Ext - Warm. No cyanosis. No dependent edema. ?? Results for CHRISTY AMBROSE ( ) as of 06/20/2018 21:38 Ref. Range 06/07/2018 10:42 06/07/2018 10:42 06/07/2018 10:49 WBC Latest Ref Range: 4.0 - 9.5 x10(3)/mcL 4.2 RBC Latest Ref Range: 4.58 - 5.54 x10(6)/mcL 2.77 (L) Hemoglobin Latest Ref Range: 13.7 - 16.5 gm/dL 8.6 (L) Hematocrit Latest Ref Range: 40.5 - 48.5 % 25.3 (L) MCV Latest Ref Range: 82.9 - 93.1 fL 91.3 MCH Latest Ref Range: 27.5 - 32.1 pg 31.0 MCHC Latest Ref Range: 32.0 - 35.7 gm/dL 34.0 RDWSD Latest Ref Range: 36.0 - 45.0 fL 49.1 (H) RDWCV Latest Ref Range: 11.4 - 13.8 % 14.6 (H) Platelets Latest Ref Range: 145 - 357 x10(3)/mcL 110 (L) MPV Latest Ref Range: 7.6 - 12.9 fL 8.6 nRBC % Auto Latest Units: % 0.0 nRBC Abs Auto Latest Ref Range: 0.000 - 0.000 x10(3)/mcL 0.000 Neutr Abs (ANC) Latest Ref Range: 1.70 - 6.10 x10(3)/mcL 2.84 Neutrophils % Latest Units: % 67.6 Immature Gran % Latest Units: % 0.50 Lymphocytes % Latest Units: % 19.0 Monocytes % Latest Units: % 9.8 Eosinophils % Latest Units: % 2.6 Basophils % Latest Units: % 0.5 Veronika Gran Abs Latest Ref Range: 0.00 - 0.04 x10(3)/mcL 0.02 Lymphocytes Abs Latest Ref Range: 0.9 - 3.2 x10(3)/mcL 0.8 (L) Monocyte Abs Latest Ref Range: 0.3 - 0.9 x10(3)/mcL 0.4 Eosinophils Abs Latest Ref Range: 0.0 - 0.4 x10(3)/mcL 0.1 Basophils Abs Latest Ref Range: 0.0 - 0.1 x10(3)/mcL 0.0 Sodium Latest Ref Range: 135 - 145 mmol/L 141 141 Potassium Latest Ref Range: 3.5 - 5.0 mmol/L 4.7 4.7 Chloride Latest Ref Range: 98 - 107 mmol/L 110 (H) 110 (H) CO2 Latest Ref Range: 22 - 31 mmol/L 17 (L) 17 (L) Anion Gap Latest Ref Range: 5 - 15 mmol/L 14 14 BUN Latest Ref Range: 10 - 20 mg/dL 50 (H) 50 (H) Creatinine Latest Ref Range: 0.80 - 1.50 mg/dL 3.64 (H) 3.64 (H) eGFR Latest Ref Range: >=60 mL/min/1.73 m?? 18 (L) 18 (L) eGFR Latest Ref Range: >=60 mL/min/1.73 m?? 20 (L) 20 (L) Glucose Lvl Latest Ref Range: 65 - 199 mg/dL 100 100 Calcium Latest Ref Range: 8.5 - 10.5 mg/dL 7.9 (L) 7.9 (L) Magnesium Latest Ref Range: 0.69 - 1.07 mmol/L 0.83 Phosphorus Latest Ref Range: 2.5 - 4.5 mg/dL 5.3 (H) Uric Acid Latest Ref Range: 3.5 - 8.5 mg/dL 5.1 Total Protein Latest Ref Range: 6.1 - 8.0 gm/dL 5.5 (L) Albumin Latest Ref Range: 3.2 - 5.2 gm/dL 3.3 Total Bilirubin Latest Ref Range: 0.2 - 1.3 mg/dL 0.4 Alk Phos Latest Ref Range: 40 - 120 unit/L 100 AST Latest Ref Range: 0 - 39 unit/L 19 ALT Latest Ref Range: 0 - 55 unit/L 13 U Protein Ran Latest Ref Range: 0 - 12 mg/dL 934 (H) Chol, Total Latest Units: mg/dL 202 Lipid Interpretation Unknown See Note Tacrolimus Lvl Latest Units: ng/mL <2.0 Color UA Latest Ref Range: Yellow Yellow Appearance UA Latest Ref Range: Clear Hazy (A) Spec [place] UA Latest Ref Range: 1.002 - 1.030 1.015 pH UA Latest Ref Range: 5.0 - 8.0 6.0 Protein UA Latest Ref Range: Negative mg/dL >=500 (A) Glucose UA Latest Ref Range: Negative mg/dL Negative Ketones UA Latest Ref Range: Negative mg/dL Negative Bilirubin UA Latest Ref Range: Negative mg/dL Negative Urobilinogen UA Latest Ref Range: Normal mg/dL Normal Blood UA Latest Ref Range: Negative mg/dL Negative Leukocytes UA Latest Ref Range: Negative mcL Negative Nitrite UA Latest Ref Range: Negative Negative WBC UA Latest Ref Range: 0 - 3 /HPF 2 RBC UA Latest Ref Range: 0 - 3 /HPF 2 Hyaline Cast UA Latest Ref Range: 0 - 2 /LPF 15 (H) Bacteria UA Latest Ref Range: None /HPF Rare (A) Squam Epith UA Latest Ref Range: <=4 /HPF 1 Renal Epith UA Latest Ref Range: <=0 /HPF <1 (H) Culture Reflexed Unknown No Prot/Cre Ratio Latest Units: ratio 13.5 U Creatinine Latest Units: mg/dL 69 Impression/ Plan: Mr. Ambrose is a 57??yr old gentleman w/ hx of kidney transplant who presents to transplant clinic for f/u after his recent prolonged admission for asystolic arrest due to acute profound hemorrhage due to ruptured left arm AVF and his recent SAH and left eyebrow laceration. He is clearly in stage 4 CKD nearing stage 5. He is not a candidate for another transplant at this time. ?? Transplant Status/ Graft Function: -s/p donor kidney transplant 11/26/02; CKD stage 4 to 5 -etiology of ESRD is secondary to??IgA Nephropathy. Post-Transplant ??Course complicated by delayedgraft function, recurrent IgA and prograf toxicity ?? See changes above for progressive CKD: clinical findings LE edema, hypertension, anemia of CKD and hypocalcemia. ? Immunosuppression: -patient is consistent/ compliant with his immunosuppressive regimen ? CKD stage 4 calcitriol 0.5 mcg qod incr losartan to control proteinuria but ineffective started Procrit 20K units qweekly in SNF; needs it weekly patient remains on BID PPI lower dose to 20 mg bid Asked him to start CaCO3 650 mg tab, one tab BID in between meals Start Procrit subcut 20K units weekly Increase hydralazine 75 mg tid Start Lasix 40 mg qAM ? PO4/Mg: -not controlled on labs this AM; see changes above ? Hypertension: -not controlled -Continue Diltiazem, Metoprolol, losartan 100 mg qAM ?increased hydralazine, see above Bradycardia: -metoprolol 25mg PO TID ? Metabolic Acidosis: -serum bicarb low -continue sodium bicarbonate PO 650 mg tid with meals -added CaCO3 for hypocalcemia and acidosis ?? RTC 1 months, monthly labs ?? ? Discussion with the patient and/or family concerned the following: ? Diagnostic results or recommended studies ? Prognosis; ? Risks and benefits of management; ? Instructions for management; ? Compliance with treatment; ? Risk factor reduction; ? Patient and family education. ? Total time 25 of 30 min in direct face to face sexual abuse counsellor. ?? documented in this encounter Plan of Treatment Not on file documented as of this encounter Visit Diagnoses Diagnosis Anemia of chronic renal failure, unspecified CKD stage IgA nephropathy Nephritis and nephropathy, not specified as acute or chronic, with unspecified pathological lesion in kidney Aftercare following organ transplant CKD (chronic kidney disease) stage 4, GFR 15-29 ml/min Chronic kidney disease, Stage IV (severe) Prophylactic immunotherapy Need for prophylactic immunotherapy H/O kidney transplant Kidney replaced by transplant documented in this encounter Administered Medications Inactive Administered Medications - up to 3 most recent administrations Medication Order MAR Action Action Date Dose Rate Site epoetin kerry (EPOGEN;PROCRIT) injection 20,000 Units 20,000 Units, Subcutaneous, ONCE, 1 dose, On Wed06/07/18 at 1200, Routine, What is the indication of use? Neither Chemo-induced nor Radio-induced anemia Given 06/07/2018 11:38 AM EST 20,000 Units Right Arm documented in this encounter Care Teams Montessori Lead Teacher Relationship Specialty Start Date End Date Carroll Fuentes DO [address] [place] [address] [address] [place] [address] PCP - General 09/23/11 10/20/22 documented as of this encounter
--- OUTSIDE RECORDS SUMMARY | 2024-04-22 10:56 | XMS_ITS | Encounter Summary ---
[facility] Organization [facility] [place] [address] Care Team Providers Care Ebd Teacher Name Role Phone AlfredoCarroll allison Primary Care Provider Encounter Details Date Type Department Care Team (Latest Contact Info) Description 06/07/2018 10:20 AM EST Laboratory Appointment Lab [address] [place] [address] S/P kidney transplant Social History Tobacco Use [...] Procedure Name Priority Date/Time Associated Diagnosis Comments URINALYSIS MICROSCOPIC EXAM STAT 06/07/2018 10:49 AM EST PROTEIN/CREATININE RATIO, URINE STAT 06/07/2018 10:49 AM EST S/P kidney transplant URINALYSIS WITH REFLEX CULTURE STAT 06/07/2018 10:49 AM EST S/P kidney transplant HEMOGRAM STAT 06/07/2018 10:42 AM EST S/P kidney transplant DIFFERENTIAL, AUTOMATED STAT 06/07/2018 10:42 AM EST S/P kidney transplant TACROLIMUS LEVEL STAT 06/07/2018 10:4 2 AM EST S/P kidney transplant CBC (WITH DIFF) STAT 06/07/2018 10:42 AM EST S/P kidney transplant URIC ACID STAT 06/07/2018 10:42 AM EST S/P kidney transplant PHOSPHORUS STAT 06/07/2018 10:42 AM EST S/P kidney transplant MAGNESIUM STAT 06/07/2018 10:42 AM EST S/P kidney transplant CHOLESTEROL, TOTAL STAT 06/07/2018 10 :42 AM EST S/P kidney transplant COMPREHENSIVE METABOLIC PANEL STAT 06/07/2018 10:42 AM EST S/P kidney transplant BASIC METABOLIC PANEL STAT 06/07/2018 10:42 AM EST S/P kidney transplant documented in this encounter Results * (ABNORMAL) Urinalysis Microscopic Exam (06/07/2018 10:49 AM EST) RBC, Urine 2 0 - 3 /HPF [facility] WBC, Urine 2 0 - 3 /HPF [facility] Bacteria, Urine Rare(A) None /HPF [facility] Squamous Epithelial Cells Raw Data, Urine 1 <=4 /HPF [facility] Renal Epithelial Cells, Urine <1(H) <=0 /HPF [facility] Hyaline Casts, Urine 15(H) 0 - 2 /LPF [facility] Urine specimen obtained by clean catch procedure (specimen) 06/07/2018 10:49 AM EST 06/07/2018 11:22 AM EST Narrative Resulting Agency Comment Spec In Lab Anup Hawkins MD URINE ORDERABLES Performing Organization Address City/[facility]/ZIP Co de Phone Number [facility] [place] [address] * (ABNORMAL) Protein/Creatinine Ratio, urine (06/07/2018 10:49 AM EST) Creatinine, Urine 69 mg/dL [facility] Protein, Urine 934(H) 0 - 12 mg/dL [facility] Comment:verified by dilution Protein / Creatinine Ratio, Urine 13.5 ratio [facility] Urine specimen (specimen) 06/07/2018 10:49 AM EST 06/07/2018 11:22 AM EST Narrative Resulting Agency Comment Spec In Lab Anup Hawkins MD URINE ORDERABLES Performing Organization Address [facility] Co de Phone Number [facility] [place] [address] * (ABNORMAL) Urinalysis with reflex Culture (06/07/2018 10:49 AM EST) Glucose, Urine Dipstick Negative Negative mg/dL [facility] Protein, Urine Dipstick >=500(A) Negative mg/dL [facility] Bilirubin, Urine Dipstick Negative Negative mg/dL [facility] Comment: Clinical correlation required for positive Urine Bilirubin results as false positive may occur with some drugs and drug related products. If a false positive is suspected a serum total bilirubin should be considered if clinically indicated. Urobilinogen, Urine Dipstick Normal Normal mg/dL [facility] pH, Urn (dipstick) 6.0 5.0 - 8.0 [facility] Blood, Urine Dipstick Negative Negative mg/dL [facility] Ketone, Urine Dipstick Negative Negative mg/dL [facility] Nitrite, Urine Dipstick Negative Negative [facility] Leukocytes, Urine Dipstick Negative Negative [facility] Appearance, Urine Dipstick Hazy(A) Clear [facility] Specific Rhodes Urine Automated 1.015 1.002 - 1.030 [facility] Color, Urine Dipstick Yellow Yellow [facility] Reflex to Culture No [facility] Urine specimen obtained by clean catch procedure (specimen) 06/07/2018 10:49 AM EST 06/07/2018 11:22 AM EST Narrative Resulting Agency Comment Spec In Lab Anup Hawkins MD URINE ORDERABLES [facility] [place] [address] * (ABNORMAL) Differential, Automated (06/07/2018 10:42 AM EST) Neutrophil % 67.6 % [facility] Neutrophil Absolute 2.84 1.70 - 6.10 x10(3)/mc L [facility] Lymph % 19.0 % [facility] Lymphocytes Abs 0.8(L) 0.9 - 3.2 x10(3)/mc L [facility] Monocyte % 9.8 % [facility] Monocyte Abs 0.4 0.3 - 0.9 x10(3)/mc L [facility] Eos % 2.6 % [facility] Eosinophils Abs 0.1 0.0 - 0.4 x10(3)/mc L [facility] Basophil % 0.5 % [facility] Baso Absolute 0.0 0.0 - 0.1 x10(3)/mc L [facility] Immature Gran % 0.50 % [facility] Comment: Immature granulocytes(IG's)percentage and absolute count will include metamyelocytes, myelocytes, and promyelocytes. Blood smears from CBCs yielding IG's will be scanned manually for concordance. If this scan disagrees with the automated IG or if promyelocytes are noted, a manual differential will be performed. Immature Gran Absolute 0.02 0.00 - 0.04 x10(3)/mc L [facility] Blood specimen (specimen) 06/07/2018 10:42 AM EST 06/07/2018 10:50 AM EST Narrative Resulting Agency Comment Spec In Lab Anup Hawkins MD HEMATOLOGY ORDERA BLES [facility] [place] [address] * (ABNORMAL) Hemogram (06/07/2018 10:42 AM EST) White Blood Cell 4.2 4.0 - 9.5 x10(3)/[facility] Red Blood Cell 2.77(L) 4.58 - 5.54 x10(6)/[facility] Hemoglobin 8.6(L) 13.7 - 16.5 gm/dL [facility] Hematocrit 25.3(L) 40.5 - 48.5 % [facility] Mean Cell Volume 91.3 82.9 - 93.1 fL [facility] Mean Cell Hemoglobin 31.0 27.5 - 32.1 pg [facility] Mean Cell Hemoglobin Concentration 34.0 32.0 - 35.7 gm/dL [facility] Platelet 110(L) 145 - 357 x10(3)/[facility] RDW Standard Deviation 49.1(H) 36.0 - 45.0 [facility] RDW coefficient of variation 14.6(H) 11.4 - 13.8 % [facility] Mean Platelet Volume 8.6 7.6 - 12.9 [facility] NRBC% auto 0.0 % [facility] NRBC Absolute 0.000 0.000 - 0.000 x10(3)/[facility] Blood specimen (specimen) 06/07/2018 10:42 AM EST 06/07/2018 10:50 AM EST Narrative Resulting Agency Comment Spec In Lab Anup Hawkins MD HEMATOLOGY ORDERA BLES Performing Organization Address [facility] Co de Phone Number [facility] [place] [address] * Tacrolimus level (06/07/2018 10:42 AM EST) Tacrolimus <2.0 ng/mL [facility] Comment: Trough therapeutic: ??5-15 ng/mL Performed by ultra-performance liquid chromatography tandem mass spectrometry (UPLCMS/MS). This test was developed and its performance characteristics determined by [facility]. It has not been cleared or approved by the FDA. The laboratory is regulated under CLIA as qualified to perform high-complexity testing. This test is used for clinical purposes. It should not be regarded as investigational or for research. Blood specimen (specimen) 06/07/2018 10:42 AM EST 06/07/2018 1:31 PM EST Narrative Resulting Agency Comment Spec In Lab Anup Hawkins MD CHEMISTRY ORDERAB LES Performing Organization Address [facility] Co de Phone Number [facility] [place] [address] * (ABNORMAL) Basic Metabolic Panel (non-fasting) (06/07/2018 10:42 AM EST) Glucose 100 65 - 199 mg/dL [facility] Comment:Diabetes: >=200 mg/d L plus symptoms Blood Urea Nitrogen 50(H) 10 - 20 mg/dL [facility] Creatinine 3.64(H) 0.80 - 1.50 mg/dL [facility] Sodium 141 135 - 145 mmol/L [facility] Potassium 4.7 3.5 - 5.0 mmol/L [facility] Comment: Please note: ??Patients with WBC >100,000 may have falsely elevated Potassium levels. ??For accurate Potassium quantification in these patients send serum separator tube (gold top) for subsequent determinations. ??Contact the Clinical Chemistry Laboratory if there are any questions. Chloride 110(H) 98 - 107 mmol/L [facility] Carbon Dioxide 17(L) 22 - 31 mmol/L [facility] Anion Gap 14 5 - 15 mmol/L [facility] Calcium 7.9(L) 8.5 - 10.5 mg/dL [facility] Est Glomerular Filtration Rate 18(L) >=60 mL/min/1. 73 m?? [facility] Comment: The eGFR was calculated using the CKD-EPI equation. As with all creatinine based estimates of kidney function, eGFR values calculated with the CKD-EPI equation are not accurate in patients with acute kidney failure, extremes of body mass or the acutely ill. http://[employer]/[facility] – CLAREMOREnkf eGFR 20(L) >=60 mL/min/1. 73 m?? [facility] Comment: The eGFR was calculated using the CKD-EPI equation. As with all creatinine based estimates of kidney function, eGFR values calculated with the CKD-EPI equation are not accurate in patients with acute kidney failure, extremes of body mass or the acutely ill. [email or web address]/DHMCnkf Blood specimen (specimen) 06/07/2018 10:42 AM EST 06/07/2018 10:50 AM EST Narrative Resulting Agency Comment Spec In Lab Anup Hawkins MD CHEMISTRY ORDERAB LES Performing Organization Address City/State/[facility] Co de Phone Number [facility] [place] [address] * Cholesterol, total (06/07/2018 10:42 AM EST) Cholesterol, Total 202 mg/dL [facility] Comment: Lower Risk: <200 mg/dL Average Risk: 200-239 mg/dL Higher Risk: >wk=733 mg/dL Lipid Interpretation See Note [facility] Comment: Lipid management should be guided by a patient? s ASCVD risk, goals and preferences. ACC/AHA Guidelines recommend high intensity statin if clinical ASCVD or LDL greater than or equal to 190 mg/dL. http://[employer]/EWA-DWQ-Qrzzfspxr Adults aged 40-75 with LDL 70-189 mg/dL should have their 10 year ASCVD risk estimated with the ACC/AHA ASCVD risk business services coordinator http://tools.acc.org/DOEDU-Kjuc-Urvhnfizd/ Statin should be discussed if risk greater [...] of ASCVD risk reduction. Blood specimen (specimen) 06/07/2018 10:42 AM EST 06/07/2018 10:50 AM EST Narrative Resulting Agency Comment Spec In Lab Anup Hawkins MD CHEMISTRY ORDERAB LES [facility] [place] [address] * (ABNORMAL) Comprehensive metabolic panel (non-fasting) (06/07/2018 10:42 AM EST) Glucose 100 65 - 199 mg/dL [facility] Comment:Diabetes: >=200 mg/d L plus symptoms Blood Urea Nitrogen 50(H) 10 - 20 mg/dL [facility] Creatinine 3.64(H) 0.80 - 1.50 mg/dL [facility] Sodium 141 135 - 145 mmol/L [facility] Potassium 4.7 3.5 - 5.0 mmol/L [facility] Comment: Please note: ??Patients with WBC >100,000 may have falsely elevated Potassium levels. ??For accurate Potassium quantification in these patients send serum separator tube (gold top) for subsequent determinations. ??Contact the Clinical Chemistry Laboratory if there are any questions. Chloride 110(H) 98 - 107 mmol/L [facility] Carbon Dioxide 17(L) 22 - 31 mmol/L [facility] Anion Gap 14 5 - 15 mmol/L [facility] Calcium 7.9(L) 8.5 - 10.5 mg/dL [facility] Protein, Total 5.5(L) 6.1 - 8.0 gm/dL [facility] Albumin 3.3 3.2 - 5.2 gm/dL [facility] Aspartate Aminotransferase 19 0 - 39 unit/L [facility] Alanine Aminotransferase 13 0 - 55 unit/L [facility] Alkaline Phosphatase 100 40 - 120 unit/L [facility] Bilirubin, Total 0.4 0.2 - 1.3 mg/dL [facility] Est Glomerular Filtration Rate 18(L) >=60 mL/min/1. 73 m?? [facility] Comment: The eGFR was calculated using the CKD-EPI equation. As with all creatinine based estimates of kidney function, eGFR values calculated with the CKD-EPI equation are not accurate in patients with acute kidney failure, extremes of body mass or the acutely ill. http://[employer]/[facility] CLAREMOREnkf eGFR 20(L) >=60 mL/min/1. 73 m?? [facility] Comment: The eGFR was calculated using the CKD-EPI equation. As with all creatinine based estimates of kidney function, eGFR values calculated with the CKD-EPI equation are not accurate in patients with acute kidney failure, extremes of body mass or the acutely ill. http://[employer]/[facility] CL[facility]EMOREnkf Blood specimen (specimen) 06/07/2018 10:42 AM EST 06/07/2018 10:50 AM EST Narrative Resulting Agency Comment Spec In Lab Anup Hawkins MD CHEMISTRY ORDERAB LES [facility] [place] [address] * Magnesium (06/07/2018 10:42 AM EST) Magnesium 0.83 0.69 - 1.07 mmol/L [facility] Blood specimen (specimen) 06/07/2018 10:42 AM EST 06/07/2018 10:50 AM EST Narrative Resulting Agency Comment Spec In Lab Anup Hawkins MD CHEMISTRY ORDERAB LES Performing Organization Address [facility] Co de Phone Number [facility] [place] [address] * (ABNORMAL) Phosphorus (06/07/2018 10:42 AM EST) Phosphorus 5.3(H) 2.5 - 4.5 mg/dL [facility] Blood specimen (specimen) 06/07/2018 10:42 AM EST 06/07/2018 10:50 AM EST Narrative Resulting Agency Comment Spec In Lab Anup Hawkins MD CHEMISTRY ORDERAB LES Performing Organization Address [facility] Co de Phone Number [facility] [place] [address] * Uric acid (06/07/2018 10:42 AM EST) Uric Acid 5.1 3.5 - 8.5 mg/dL [facility] Blood specimen (specimen) 06/07/2018 10:42 AM EST 06/07/2018 10:50 AM EST Narrative Resulting Agency Comment Spec In Lab Anup Hawkins MD CHEMISTRY ORDERAB LES Performing Organization Address [facility] Co de Phone Number [facility] [place] [address] documented in this encounter Visit Diagnoses Diagnosis S/P kidney transplant Kidney replaced by transplant documented in this encounter Care Teams Ebd Teacher Relationship Specialty Start Date End Date Carroll Fuentes DO [address] [place] [address] PCP - General 09/23/11 10/20/22 documented as of this encounter
--- OUTSIDE RECORDS SUMMARY | 2024-04-22 10:56 | XMS_ITS | Encounter Summary ---
Author Organization [facility] Address [facility] [place] [address] Care Team Providers Care Supervisor [employer] Name Role Phone Carroll Fuentes DO Primary Care Provider [phone] Reason for Referral * Diagnostic Test (Routine) - Closed Specialty Diagnoses / Procedures Referred By Contac t Referred To Contact Radiology Diagnoses SDH (subdural hematoma) Procedures CT Head wo Contrast (Generic) Anand Lugo PA [facility] [place] [address] [facility] [place] [address] Referral ID Status Reason Start Date Expiration Date V isits Requested Visits Authorized [id number] Closed Specialty Service Requested 07/29/2018 10/27/2018 1 1 Reason for Visit * Auth/Cert Specialty Diagnoses / Procedures Referred By Contac t Referred To Contact Diagnoses Acute renal failure Acute kidney injury Procedures EMERGENCY IPI Referral ID Status Reason Start Date Expiration Date Visits Re quested Visits Authorized [id number] 1 1 Encounter Details Date Type Department Care Team (Latest Contact Info) Description 08/01/2018 5:15 PM EST - 08/01/2018 11:59 PM EST Hospital [place] [address] Tim Torres MD [facility] [address] SDH (subdural hematoma) Discharge Disposition: Home Social [...] tablet by mouth daily. 90 tablet 2018 amLODIPine (NORVASC) 10 mg Tablet Take 1 tablet by mouth daily. 30 tablet 2018 2018 calcium carbonate (TUMS) 200 mg calcium (500 mg) Tablet, Chewable Take 2 tablets by mouth 3 times daily (with meals). 90 tablet 2018 2018 hydrALAZINE (APRESOLINE) 100 mg Tablet Take 1 tablet by mouth 3 times daily. 90 tablet 2018 2018 levETIRAcetam (KEPPRA) 500 mg Tablet Take 1 tablet by mouth 2 times daily. 60 tablet 2018 2018 losartan (COZAAR) 100 mg Tablet Take 1 tablet by mouth every morning. 60 tablet 2018 2018 carvedilol (COREG) 12.5 mg Tablet Take 1 tablet by mouth 2 times daily (with meals). 60 tablet 3 2018 2018 tacrolimus (PROGRAF) 1 mg Capsule Take 1 capsule by mouth 2 times daily. 60 capsule 2018 2018 dilTIAZem (CARTIA XT) 120 mg Capsule, [...] by mouth daily. 30 tablet 2018 05/05/2021 levothyroxine (SYNTHROID) 100 mcg Tablet Take 1 tablet by mouth daily. 90 tablet 2018 2018 losartan (COZAAR) 100 mg Tablet Take 1 [...] (with meals). 60 tablet 3 2018 10/21/2022 sodium bicarbonate 650 mg Tablet Take 1 tablet by mouth 3 times daily. 90 tablet 11 07/19/2018 2018 losartan (COZAAR) 100 mg Tablet Take 2 tablets by mouth every morning. 60 tablet 11 07/19/2018 2018 hydrALAZINE (APRESOLINE) 25 mg Tablet Take 5 tablets by mouth 3 times daily. 450 tablet 11 07/19/2018 2018 furosemide (LASIX) 40 mg Tablet Take 1 tablet by mouth 3 times daily. 90 tablet 11 07/19/2018 2018 calciTRIol (ROCALTROL) 0.5 mcg Capsule Take 1 capsule by mouth daily. 30 capsule 11 07/19/2018 2018 allopurinol (ZYLOPRIM) 100 mg Tablet Take 1 tablet by mouth daily. 30 tablet 11 07/19/2018 2018 dilTIAZem (CARTIA XT) 120 mg Capsule, Sust. Release 24 hrIndications:H/O kidney transplant Take 1 capsule by mouth daily. 90 capsule 3 07/01/2018 2018 calcium carbonate 648 mg calcium Tablet Take 1 tablet by mouth 3 times daily. Take on empty stomach. 90 tablet 11 06/07/2018 2018 acetaminophen (TYLENOL) 500 mg Tablet Take 2 tablets by mouth every 6 hours. 30 tablet 1 06/04/2018 2018 levETIRAcetam (KEPPRA) 500 mg Tablet Take 500 mg by mouth 2 times daily. Take 500 mg every morning and 250 mg every morning. 2018 amLODIPine (NORVASC) 2.5 mg Tablet Take 2.5 mg by mouth daily. 2018 tacrolimus (PROGRAF) 1 mg Capsule Take 1 capsule by mouth nightly. 05/04/2018 2018 tacrolimus (PROGRAF) 0.5 mg Capsule Take 3 capsules by mouth daily. 05/05/2018 2018 metoprolol tartrate (LOPRESSOR) 50 mg Tablet Take 1 tablet by mouth 3 times daily. 05/03/2018 2018 pantoprazole (PROTONIX) 20 mg Tablet, Delayed Release (E.C.) Take 1 tablet by mouth 2 times daily. 180 tablet 3 08/17/2017 2018 mycophenolate (CELLCEPT) 250 mg CapsuleIndications:S/ P kidney transplant Take 1 capsule by mouth 2 times daily. Kidney Transplant Z94.0. Transplant Date; 11-26-02 180 capsule 11 05/16/2017 2018 multivitamin Capsule Take 1 capsule by mouth daily. 2018 levothyroxine (SYNTHROID) 100 mcg Tablet Take 100 mcg by mouth daily. 2018 documented as of this encounter Plan of Treatment Not on file documented as of this encounter Procedures Procedure Name Priority Date/Time Associated Diagnosis Comments CT HEAD WO CONTRAST (GENERIC) Routine 08/01/2018 5:26 PM EST SDH (subdural hematoma) documented in [...] signed by: Damián Chacko MD, [facility] ([phone]), at 08/01/2018 5:56 PM Narrative 08/01/2018 5:56 [...] signed by: Damián Chacko MD, [facility]([phone]), at 08/01/2018 5:56 PM Tim Torres MD IMG CT ORDERABLES documented in this encounter Visit Diagnoses Diagnosis SDH (subdural hematoma) Subdural hemorrhage documented in this encounter Care Teams Supervisor [employer] Relationship Specialty Start Date End Date AlfredoCarroll [address] [place] [address] PCP - General 09/23/11 10/20/22 documented as of this encounter
--- OUTSIDE RECORDS SUMMARY | 2024-04-22 10:56 | XMS_ITS | Encounter Summary ---
Author Organization [facility] Address [facility] [place] [address] Care Team Providers Care Muffle Worker Name Role Phone Carroll Fuentes DO Primary Care Provider [phone] Encounter Details Date Type Department Care Team (Late st Contact Info) Description 08/01/2018 Telephone Dermatology at [facility] [address] [place] [address] Chanel Smith MD [facility] [place] [address] Social History Tobacco Use Types Packs/Day Years [...] encounter Miscellaneous Notes * Telephone Encounter - Meagan Marks - 08/01/2018 2:15 PM EST Patient's brother Lucas contacted the clinic today to make us aware that Adama has been admitted to the [facility] and is currently in [place] He did not want to cancel the scheduled appointment or request that we see Adama as an impatient. Hejust wanted to make us aware that he has been admitted. documented in this encounter Plan of Treatment Not on file documented as of this encounter Visit Diagnoses Not on filedocumented in this encounter Care Teams Muffle Worker Relationship Specialty Start Date End Date Carroll Fuentes DO [address] [place] [address] PCP - General 09/23/11 10/20/22 documented as of this encounter
--- OUTSIDE RECORDS SUMMARY | 2024-04-22 10:56 | XMS_ITS | Encounter Summary ---
Author Organization [facility] Address [facility] [place] [address] Care Team Providers Care Care Partner Name Role Phone Carroll Fuentes DO Primary Care Provider [phone] Encounter Details Date Type Department Care Team (Latest Contact Info) Description 06/05/2018 5:13 PM EST - 06/05/2018 11:59 PM [facility] Hospital Encounter Radiology Library at [facility] [place] [address] Tim Torres MD [facility] [place] [address] Discharge Disposition: Home Social History Tobacco Use [...] 6 hours. 30 tablet 1 06/04/2018 2018 cephalexin (KEFLEX) 500 mg Capsule Take 1 capsule by mouth 2 times daily for 53 days. 40 capsule 06/04/2018 07/19/2018 losartan (COZAAR) 100 mg Tablet Take 1 tablet by mouth every morning. 90 tablet 3 06/05/2018 07/19/2018 sodium bicarbonate 650 mg Tablet Take 2 tablets by mouth 3 times daily. 60 tablet 3 06/04/2018 07/19/2018 levETIRAcetam (KEPPRA) 500 mg Tablet Take 500 mg by mouth 2 times daily. Take 500 mg every morning and 250 mg every morning. 2018 amLODIPine (NORVASC) 2.5 mg Tablet Take 2.5 mg by mouth daily. 2018 senna-docusate (PERICOLACE) 8.6-50 mg Tablet Take 2 tablets by mouth 2 times daily. 60 tablet 11 05/04/2018 07/19/2018 tacrolimus (PROGRAF) 1 mg Capsule Take 1 capsule by mouth nightly. 05/04/2018 2018 tacrolimus (PROGRAF) 0.5 mg Capsule Take 3 capsules by mouth daily. 05/05/2018 2018 hydrALAZINE (APRESOLINE) 50 mg Tablet Take 1 tablet by mouth 3 times daily. 05/03/2018 06/07/2018 metoprolol tartrate (LOPRESSOR) 50 mg Tablet Take 1 tablet by mouth 3 times daily. 05/03/2018 2018 cholecalciferol, Vitamin D3, 50,000 unit Capsule Take 1 capsule by mouth once a week. 12 capsule 3 03/01/2018 07/19/2018 allopurinol (ZYLOPRIM) 100 mg Tablet Take 1 and 1/2 tablet daily. 45 tablet 11 01/17/2018 07/19/2018 pantoprazole (PROTONIX) 20 mg Tablet, Delayed Release (E.C.) Take 1 tablet by mouth 2 times daily. 180 tablet 3 08/17/2017 2018 docusate sodium (COLACE) 100 mg Capsule Take 1 capsule by mouth 2 times daily as needed for Constipation. 06/02/2017 07/19/2018 dilTIAZem (CARTIA XT) 120 mg Capsule, Sust. Release 24 hrIndications:H/O kidney transplant Take 1 capsule by mouth daily. 90 capsule 3 05/31/2017 06/28/2018 mycophenolate (CELLCEPT) 250 mg CapsuleIndications:S/ P kidney [...] FILM LIBRARY STORAGE ONLY CT HEAD Routine 06/05/2018 5:13 PM EST documented in this encounter Results * Film Library- Storage Only CT Head (06/05/2018 5:13 PM EST) Narrative RAD - 06/05/2018 5:13 PM EST This exam is for storage only and is auto-finalizing. Tim Torres MD IMG FILM LIBRARY ORD ERABLES [place], [place] documented in this encounter Visit Diagnoses Not on filedocumented in this encounter Care Teams Care Partner Relationship Specialty Start Date End Date Carroll Fuentes DO [address] [place] [address] PCP - General 09/23/11 10/20/22 documented as of this encounter
--- OUTSIDE RECORDS SUMMARY | 2024-04-22 10:56 | XMS_ITS | Encounter Summary ---
Author Organization [facility] Address [facility] [place] [address] Care Team Providers Care Nurse Transitional Name Role Phone AlfredoCarroll allison Primary Care Provider [phone] Reason for Visit * Reason Comments Kidney Transplant Follow-up Immunotherapy Chronic Kidney Disease Encounter Details Date Type Department Care Team (Late st Contact Info) Description 07/19/2018 11:20 AM EST Office Visit [place] [address] Anup Hawkins MD [facility] [place] [address] H/O kidney transplant; CKD (chronic kidney disease) stage 5, GFR less than 15 ml/min; Kidney transplant failure; Hypertension secondary to other renal disorders; Anemia of chronic renal failure, stage 5; Renal osteodystrophy; RTA (renal tubular acidosis) Social History Tobacco Use Types Packs/Day Years [...] Sign Reading Time Taken Comments Blood Pressure 172/116 07/19/2018 11:16 AM EST Pulse 60 07/19/2018 11:16 AM EST Temperature 36.4 ??C (97.6 ??F) 07/19/2018 1 1:16 AM EST Respiratory Rate - - Oxygen Saturation 97% 07/19/2018 11: 16 AM EST Inhaled Oxygen Concentration - - Weight 106.7 kg (235 lb 3.2 oz) 019 11:16 AM EST Height - - Body Mass Index 33.75 06/29/2018 12:52 PM EST documented in this encounter Progress Notes * Anup Hawkins MD - 07/19/2018 11:20 AM EST Images from the original note were not included. Transplant??Medicine??Follow Up ? Date: 07/19/2018 Patient: Adama Ram Transplant Date: 11/26/2002 ? Transplant organ/Indication: ??Kidney / IgA nephropathy, Prograf toxicity ? Transplant ID:?? Adama returned to clinic with his brother Lucas for follow up of his failing transplant. I last saw him after being acutely admitted after developing lightheadedness, and falling down the stairs of hisECF. His asystolic arrest was nearly 20 min but his mentation seems less than baseline.He was admitted he without LOC but developed lacerations periorbitally without fractures.He was found to have a SAH, had his anticoagulation held and his left eyebrow laceration was sutured. He is back at the [facility]), and reports progressive anasarca, LE edema and weight gain. He has not fully recovered from his hemorrhagic (ruptured left arm AVF) PEA/ asystolic arrest (see previous admit to [facility])his BPs are also higher than baseline and he is progressing in his CKD. 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 He is clearly in stage 5 CKD, nearing dialysis. ?? Mr. Adama Ram is a well known 57??y.o. male who [...] high output CHF. In 2017 he underwent a?left pilot station nephrectomy??due to the finding of a papillary carcinoma:??[id number] papillary type 2 RCC, OLIVERIO.? 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 Patient remains on tacrolimus and cellcept. Patient is compliant with his medication regimen. Patient denies any CP but has lethargy, lack of stamina, SOB, TORRES. Patient denies fever/ chills and denies any N/V/D or change in PO intake.??All other review of systems were neither positive or negative in 12 organ systems except for progressive fluid retention. ? Medications: ?? Current Outpatient Medications: ??? dilTIAZem (CARTIA XT) 120 mg Capsule, Sust. Release 24 hr, Take 1 capsule by mouth daily., Disp: 90 capsule, Rfl: 3 ??? hydrALAZINE (APRESOLINE) 25 mg Tablet, Take [...] 6 hours., Disp: 30 tablet,Rfl: 1 ??? losartan (COZAAR) 100 mg Tablet, Take [...] by mouth daily., Disp: , Rfl: ??? tacrolimus (PROGRAF) 1 mg Capsule, Take 1 capsule by mouth nightly., Disp: , Rfl: ??? tacrolimus (PROGRAF) 0.5 mg Capsule, Take 3 capsules by mouth daily., Disp: , Rfl: ??? metoprolol tartrate (LOPRESSOR) 50 mg Tablet, Take 1 tablet by mouth 3 times daily., Disp: , Rfl: ??? allopurinol (ZYLOPRIM) 100 mg Tablet, Take 1 and 1/2 tablet daily., Disp: 45 tablet, Rfl: 11 ??? pantoprazole (PROTONIX) 20 mg Tablet, Delayed Release (E.C.), Take 1 tablet by mouth 2 times daily., Disp: 180 tablet, Rfl: 3 ??? mycophenolate (CELLCEPT) 250 mg Capsule, Take 1 capsule by mouth 2 times daily. Kidney Transplant Z94.0. Transplant Date; 11-26-02, Disp: 180 capsule, Rfl: 11 ??? multivitamin Capsule, Take 1 capsule by mouth daily., Disp: , Rfl: ??? levothyroxine (SYNTHROID) 100 mcg Tablet, Take 100 mcg by mouth daily. , Disp: , Rfl: ?? Allergies / ADRs: ? Allergies Allergen Reactions ??? Benazepril Hcl ? Codeine Other (See Comments) ? Patient does not know reaction ??? Hydrochlorothiazide ? Pollen Extracts ? Sneezing/runny nose ? Immunization History Administered Date(s) Administered ??? Hepatitis B Vaccine, unspecified formulation 10/31/2001 ??? Influenza PF, Split 03/12/2016 ??? Influenza Vaccine w/Preservative, Split 04/20/2013 ??? Influenza Vaccine, Whole 06/11/2006, 04/09/2009 ??? Pneumococcal Conjugate (13 Valent) 05/20/2016 ??? Pneumococcal Polyvalent 23 05/23/2013 ??? Tdap Vaccine 11/26/2016 ? PHYSICAL EXAM: ?? Vitals Office Visit from 07/19/2018 in Solid Organ Transplant at [place] Weight 106.7 kg (235 lb 3.2 oz) Temp 36.4 ??C (97.6 ??F) Temp src Oral Heart Rate 60 BP 172/116 (Abnormal) Patient Position Sitting SpO2 97 % Markedly edematous porfirio. 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 Gen - AAO x 3 in NAD, chronically ill-appearing; pale; mentation a bit slower than baseline Skin - No exanthem. Diffuse edema HEENT [...] No organomegaly. Ext - Warm. No cyanosis. 3+ dependent edema to thighs bilaterally. ?? Recent Results (from the past 24 hour(s)) Uric acid Result Value Ref Range Uric Acid 5.5 3.5 - 8.5 mg/dL Phosphorus Result Value Ref Range Phosphorus 6.7 (H) 2.5 - 4.5 mg/dL Magnesium Result Value Ref Range Magnesium 0.89 0.69 - 1.07 mmol/L Comprehensive metabolic panel (non-fasting) Result Value Ref Range Glucose Lvl 105 65 - 199 mg/dL BUN 72 (H) 10 - 20 mg/dL Creatinine 7.40 (H) 0.80 - 1.50 mg/dL Sodium 148 (H) 135 - 145 mmol/L Potassium 5.0 3.5 - 5.0 mmol/L Chloride 112 (H) 98 - 107 mmol/L CO2 18 (L) 22 - 31 mmol/L Anion Gap 18 (H) 5 - 15 mmol/L Calcium 7.7 (L) 8.5 - 10.5 mg/dL Total Protein 5.9 (L) 6.1 - 8.0 gm/dL Albumin 3.5 3.2 - 5.2 gm/dL AST 18 0 - 39 unit/L ALT 11 0 - 55 unit/L Alk Phos 101 40 - 120 unit/L Total Bilirubin 0.3 0.2 - 1.3 mg/dL eGFR 7 (L) >=60 mL/min/1.73 m?? eGFR 9 (L) >=60 mL/min/1.73 m?? Cholesterol, total Result Value Ref Range Chol, Total 202 mg/dL Lipid Interpretation See Note Basic Metabolic Panel (non-fasting) Result Value Ref Range Glucose Lvl 105 65 - 199 mg/dL BUN 72 (H) 10 - 20 mg/dL Creatinine 7.40 (H) 0.80 - 1.50 mg/dL Sodium 148 (H) 135 - 145 mmol/L Potassium 5.0 3.5 - 5.0 mmol/L Chloride 112 (H) 98 - 107 mmol/L CO2 18 (L) 22 - 31 mmol/L Anion Gap 18 (H) 5 - 15 mmol/L Calcium 7.7 (L) 8.5 - 10.5 mg/dL eGFR 7 (L) >=60 mL/min/1.73 m?? eGFR 9 (L) >=60 mL/min/1.73 m?? Iron and TIBC Result Value Ref Range Iron 70 45 - 160 mcg/dL TIBC 263 250 - 450 mcg/dL Iron Saturation 27 20 - 50 % Folate, serum Result Value Ref Range Folate Lvl 10.9 4.8 - 24.2 ng/mL Ferritin Result Value Ref Range Ferritin 76 30 - 400 ng/mL Tacrolimus level Result Value Ref Range Tacrolimus Lvl 3.2 ng/mL Reticulocyte Count Result Value Ref Range Retic Ct % 1.2 0.7 - 2.6 % Retic Ct Abs 0.040 0.030 - 0.120 x10(6)/mcL Immature Retic% 9.0 0.0 - 15.6 % Reticulated Hgb 28.4 (L) 31.3 - 40.2 pg Hemogram Result Value Ref Range WBC 4.2 4.0 - 9.5 x10(3)/mcL RBC 3.10 (L) 4.58 - 5.54 x10(6)/mcL Hemoglobin 8.8 (L) 13.7 - 16.5 gm/dL Hematocrit 27.3 (L) 40.5 - 48.5 % MCV 88.1 82.9 - 93.1 fL MCH 28.4 27.5 - 32.1 pg MCHC 32.2 32.0 - 35.7 gm/dL Platelets 145 145 - 357 x10(3)/mcL RDWSD 48.8 (H) 36.0 - 45.0 fL RDWCV 15.5 (H) 11.4 - 13.8 % MPV 8.9 7.6 - 12.9 fL nRBC % Auto 0.0 % nRBC Abs Auto 0.000 0.000 - 0.000 x10(3)/mcL Differential, Automated Result Value Ref Range Neutrophils % 60.4 % Neutr Abs (ANC) 2.56 1.70 - 6.10 x10(3)/mcL Lymphocytes % 24.3 % Lymphocytes Abs 1.0 0.9 - 3.2 x10(3)/mcL Monocytes % 10.8 % Monocyte Abs 0.5 0.3 - 0.9 x10(3)/mcL Eosinophils % 3.5 % Eosinophils Abs 0.2 0.0 - 0.4 x10(3)/mcL Basophils % 0.5 % Basophils Abs 0.0 0.0 - 0.1 x10(3)/mcL Immature Gran % 0.50 % Veronika Gran Abs 0.02 0.00 - 0.04 x10(3)/mcL Scan, Peripheral Blood Result Value Ref Range Plat Estimate Normal RBC Morphology Abnormal Microcytes 1-5 /HPF Ovalocytes 1-5 /HPF Yovanny Cells 1-5 /HPF Protein/Creatinine Ratio, urine Result Value Ref Range U Creatinine 105 mg/dL U Protein Ran 1,716 (H) 0 - 12 mg/dL Prot/Cre Ratio 16.3 ratio Urinalysis with reflex Culture Result Value Ref Range Glucose UA 50 (A) Negative mg/dL Protein UA >=500 (A) Negative mg/dL Bilirubin UA Negative Negative mg/dL Urobilinogen UA Normal Normal mg/dL pH UA 6.0 5.0 - 8.0 Blood UA Negative Negative mg/dL Ketones UA Negative Negative mg/dL Nitrite UA Negative Negative Leukocytes UA Negative Negative mcL Appearance UA Clear Clear Spec Lowes UA 1.023 1.002 - 1.030 Color UA Yellow Yellow Culture Reflexed No Urinalysis Microscopic Exam Result Value Ref Range RBC UA 1 0 - 3 /HPF WBC UA 2 0 - 3 /HPF Bacteria UA Occasional (A) None /HPF Squam Epith UA 1 <=4 /HPF Renal Epith UA <1 (H) <=0 /HPF Hyaline Cast UA 16 (H) 0 - 2 /LPF Gran Cast UA 7 (H) <=0 /LPF Impression/ Plan: Mr. Ram is a 57??yr old gentleman w/ hx of failing kidney transplant 15+ yr who presents to transplant clinic for f/u??after his recent prolonged admission for asystolic arrest due to acute profound hemorrhage due to ruptured left arm AVF and his recent SAH and left eyebrow laceration, as well as monitoring his failing graft. ?? He is clearly in stage 5 CKD nearing ESRD. He is not a candidate for another transplant at this time. ?? Transplant Status/ Graft Function: -s/p donor kidney transplant 11/26/02; CKD stage 5 -etiology of ESRD is secondary to??IgA Nephropathy, CTG and now ischemic ATN with progression of CTG. Post-Transplant ??Course complicated by delayed graft function, recurrent IgA and prograf toxicity ?? 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 Med changes made today: 1) drop allopurinol to 100 mg qd, 2) increase CaCO3 to 1300 mg 3 times daily on empty stomach, stop Keflex, stop cholecalciferol, start calcitriol 0.5 mcg qdaily, stop Colace and Pericolace, increase Lasix to 40 mg tid, increase hydralazine to 125 mg tid, lower losartan to 50 mg qdaily, and lower NaHCO3 to one tab 650 mg 3 times daily. Needs to have Procrit injections 20K units three times weekly subcutaneously to be done at [facility]. ? Immunosuppression: -patient is consistent/ compliant with his immunosuppressive regimen ? CKD stage 5, nearing dialysis I spoke with the CKD clinic here at and it would be appropriate to see them soon to establish care and placement of dialysis catheter See changes above PO4/Mg: -not controlled on labs this AM; see changes above ? Hypertension: -not??controlled -Continue Diltiazem, Metoprolol, losartan??100??mg qAM ?increased hydralazine, lowered losartan, incr Lasix see above ?? Bradycardia: -metoprolol 25mg PO TID ? Metabolic Acidosis: -serum bicarb low -continue sodium bicarbonate PO 650 mg tid with meals dropped from 1300 due to profound edema -doubled CaCO3 for hypocalcemia and acidosis ?? RTC to see CKD clinic [facility] ?? ? Discussion with the patient and/or family concerned the following: ?Diagnostic results or recommended studies ?Prognosis; ?Risks and benefits of management; ?Instructions for management; ?Compliance with treatment; ?Risk factor reduction; ?Patient and family education. ? Total time??40 of 45 min??in direct face to face retirement plan counselor with Adama and his brother ?? documented in this encounter Plan of Treatment Scheduled Orders Name Type Priority Associated Diagnoses Orde r Schedule CBC (with Diff) Lab STAT H/O kidney transplant Expected: 07/19/2018 (Approximate), Expires: 01/14/2019 Cholesterol, total Lab STAT H/O kidney transplant Expected: 07/19/2018 (Approximate), Expires: 01/14/2019 Comprehensive metabolic panel (non-fasting) Lab STAT H/O kidney transplant Expected: 07/19/2018 (Approximate), Expires: 01/14/2019 Magnesium Lab STAT H/O kidney transplant Expected: 07/19/2018 (Approximate), Expires: 01/14/2019 Phosphorus Lab STAT H/O kidney transplant Expected: 07/19/2018 (Approximate), Expires: 01/14/2019 Protein/Creatinine Ratio, urine Lab STAT H/O kidney transplant Expected: 07/19/2018 (Approximate), Expires: 01/14/2019 Uric acid Lab STAT H/O kidney transplant Expected: 07/19/2018 (Approximate), Expires: 01/14/2019 documented as of this encounter Results * (ABNORMAL) Urinalysis with reflex Culture (07/19/2018 9:47 AM EST) Glucose, Urine Dipstick 50(A) Negative mg/dL [facility] Protein, Urine Dipstick >=500(A) Negative mg/dL [facility] Bilirubin, Urine Dipstick Negative Negative mg/dL [facility] Comment: Clinical correlation required for positive Urine Bilirubin results as false positive may occur with some drugs and drug related products. If a false positive is suspected a serum total bilirubin should be considered if clinically indicated. Urobilinogen, Urine Dipstick Normal Normal mg/dL [facility] pH, Urn (dipstick) 6.0 5.0 - 8.0 [facility] Blood, Urine Dipstick Negative Negative mg/dL [facility] Ketone, Urine Dipstick Negative Negative mg/dL [facility] Nitrite, Urine Dipstick Negative Negative [facility] Leukocytes, Urine Dipstick Negative Negative mcL [facility] Appearance, Urine Dipstick Clear Clear [facility] Specific Lowes Urine Automated 1.023 1.002 - 1.030 [facility] Color, Urine Dipstick Yellow Yellow [facility] Reflex to Culture No [facility] Urine specimen obtained by clean catch procedure (specimen) 07/19/2018 9:47 AM EST 07/19/2018 9:58 AM EST Narrative Resulting Agency Comment Spec In Lab Anup Hawkins MD URINE ORDERABLES [facility] [place] [address] * Iron and TIBC (07/19/2018 9:41 AM EST) Iron 70 45 - 160 mcg/dL [facility] TIBC 263 250 - 450 mcg/dL [facility] Iron Saturation 27 20 - 50 % [facility] Blood specimen (specimen) 07/19/2018 9:41 AM EST 07/19/2018 9:54 AM EST Narrative Resulting Agency Comment Spec In Lab Anup Hawkins MD CHEMISTRY ORDERAB LES Performing Organization Address [facility] de Phone Number [facility] [place] [id number] * Folate, serum (07/19/2018 9:41 AM EST) Pathologist [facility] Folate 10.9 4.8 - 24.2 ng/mL [facility] Blood specimen (specimen) 07/19/2018 9:41 AM EST 07/19/2018 9:54 AM EST Narrative Resulting Agency Comment Spec In Lab Anup Hawkins MD CHEMISTRY ORDERAB LES Performing Organization Address [facility] de Phone Number [facility] [place] [address] * Ferritin (07/19/2018 9:41 AM EST) Ferritin 76 30 - 400 ng/mL [facility] Comment: Pediatric reference ranges not verified at [facility], interpret with caution. Reference ranges for females greater than 50 years of age approach values for men, i.e., 30-400 ng/mL. Blood specimen (specimen) 07/19/2018 9:41 AM EST 07/19/2018 9:54 AM EST Narrative Resulting Agency Comment Spec In Lab Anup Hawkins MD CHEMISTRY ORDERAB LES Performing Organization Address [facility]/ZIP Co de Phone Number [facility] [place] [address] * Tacrolimus level (07/19/2018 9:41 AM EST) Tacrolimus 3.2 ng/mL [facility] Comment: Trough therapeutic: ??5-15 ng/mL Performed by ultra-performance liquid chromatography tandem mass spectrometry (UPLCMS/MS). This test was developed and its performance characteristics determined by [facility]. It has not been cleared or approved by the FDA. The laboratory is regulated under CLIA as qualified to perform high-complexity testing. This test is used for clinical purposes. It should not be regarded as investigational or for research. Blood specimen (specimen) 07/19/2018 9:41 AM EST 07/19/2018 10:37 AM EST Narrative Resulting Agency Comment Spec In Lab Anup Hawkins MD CHEMISTRY ORDERAB LES Performing Organization Address [facility] Co de Phone Number [facility] [place] [address] * (ABNORMAL) Reticulocyte Count (07/19/2018 9:41 AM EST) Reticulocyte % 1.2 0.7 - 2.6 % [facility] Retic Abs # 0.040 0.030 - 0.120 x10(6)/mcL [facility] Immature Retic% 9.0 0.0 - 15.6 % [facility] Reticulated Hgb 28.4(L) 31.3 - 40.2 pg [facility] Blood specimen (specimen) 07/19/2018 9:41 AM EST 07/19/2018 9:54 AM EST Narrative Resulting Agency Comment Spec In Lab Anup Hawkins MD HEMATOLOGY ORDERA BLES Performing Organization Address City/[facility] Co de Phone Number [facility] [place] [address] documented in this encounter Visit Diagnoses Diagnosis H/O kidney transplant Kidney replaced by transplant CKD (chronic kidney disease) stage 5, GFR less than 15 ml/min Chronic kidney disease, Stage V Kidney transplant failure Complications of transplanted kidney Hypertension secondary to other renal disorders Anemia of chronic renal failure, stage 5 Renal osteodystrophy RTA (renal tubular acidosis) Other specified disorders resulting from impaired renal function documented in this encounter Care Teams Nurse Transitional Relationship Specialty Start Date End Date Carroll Fuentes DO [address] [place] [address] PCP - General 09/23/11 10/20/22 documented as of this encounter
--- OUTSIDE RECORDS SUMMARY | 2024-04-22 10:56 | XMS_ITS | Encounter Summary ---
Author Organization [facility] Address [facility] [place] [address] Care Team Providers Care Watch And Clock Repair Clerk Name Role Phone Sebastian Garcia Primary Care Provider [phone] Reason for Referral * Diagnostic Test (Routine) - Closed Specialty Diagnoses / Procedures Referred By Contac t Referred To Contact Radiology Diagnoses Subarachnoid hemorrhage Procedures CT Head wo Contrast (Generic) Dmitriy Hoffman APRN [facility] [place] [address] [facility] [place] [address] Referral ID Status Reason Start Date Expiration Date V isits Requested Visits Authorized [id number] Closed Specialty Service Requested 06/24/2018 09/22/2018 1 1 Reason for Visit * Reason Comments Trauma Alert Hospital Transfer * Auth/Cert Specialty Diagnoses / Procedures Referred By Contac t Referred To Contact Diagnoses Subarachnoid hemorrhage IgA nephropathy Subarachnoid hemorrhage Procedures EMERGENCY IPI Referral ID Status Reason Start Date Expiration Date Visits Re quested Visits Authorized [id number] 1 1 Encounter Details Date Type Department Care Team (Latest Contact Info) Description 06/02/2018 4:07 PM EST - 06/04/2018 1:30 PM EST Hospital Encounter [address] [place] [address] Lawrence Flores MD [facility] [place] [address] IgA nephropathy; Subarachnoid hemorrhage; Swelling; Deep vein thrombosis (DVT) of other vein of left lower extremity, unspecified chronicity Discharge Disposition: Home Social History Tobacco Use [...] Sign Reading Time Taken Comments Blood Pressure 166/94 06/04/2018 7:15 AM EST RN aware Pulse 74 06/03/2018 11:45 PM EST Temperature 36.8 ??C (98.2 ??F) 06/04/2018 7:15 AM ES T Respiratory Rate 14 06/04/2018 7:15 AM EST Oxygen Saturation 95% 06/04/2018 7:15 AM EST Inhaled Oxygen Concentration - - Weight - - Height 182.9 cm (6') 06/02/2018 8:00 PM EST Body Mass Index - - documented in this encounter Discharge Summaries * Lela Evans S, PLACEMENT SPECIALIST - 06/04/2018 12:19 PM EST Images from the original note were not included. Trauma Discharge Summary Patient Name: Christy Ambrose Patient Age: 57 y.o. : 1960 Attending Physician: Lawrence Flores MD Date of Admission: 06/02/2018 Date of Discharge: 06/04/18 ID: 57 y.o. Male admitted s/p ground level fall on 06/02 with the following injuries: Injury Intervention Follow-up Subarachnoid hemorrhage ?? Neurosurgery consult Neurosurgery clinic 4 weeks. Continue home Keppra. No anticoagulation Left eyebrow lac Repaired with suture in trauma bay Trauma clinic for suture removal in 7-10 days Scheduled Appointments: The following appointments have been scheduled on your behalf: Future Appointments Date Time Provider Department Center 07/19/2018 10:30 AM Kurt Medina MD Leb Infec 5C [facility] 07/26/2018 10:00 AM LAB, THREE L Lab 3L [facility] 07/26/2018 11:00 AM Anup Hawkins MD Leb Trans 2M [facility] 08/18/2018 10:30 AM Chanel Smith MD [facility] [address] Other In-hospital Issues: - Acute pain - Chronic seizure disorder - Chronic hypertension - 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 BP (high blood pressure) ??? DVT (deep venous thrombosis) ??? Gout ??? Hypertension ??? Kidney problem ??? Pneumonia ??? TBI (traumatic brain injury) 1979 Allergies: Allergies Allergen Reactions ??? Benazepril Hcl ??? Codeine Other (See Comments) Patient does not know reaction ??? Hydrochlorothiazide ??? Pollen Extracts Sneezing/runny nose Operations/Procedures: none HPI Per admission: Christy Ambrose is a 57 y.o. male presents to [facility] s/p fall on aspirin. Description of events leading up to injury includes patient fell down a few steps, onto left head. Patient unable to recall events. Bleeding noted from left head, controlled on scene with direct pressure. Brought to [facility] where heavy venous bleeding was noted from head laceration, controlled with two sutures and pressure dressing. Altered mental status noted at OSH, eportedly waxing and waning. CT head at OSH demonstrated subarachnoid hemorrhage. Patient reported to OSH that he is on coumadin. His INR at OSH was 1.0. A cervical collar was applied and the patient was transferred to [facility]. ?? Primary survey revealed: intact airway, equal breath sounds/respirations, present 2+ peripheral pulses with stable vital signs and no signs of bleeding, GCS 15 (6 - Follows simple motor commands, 5 -Alert and oriented, 4 - Opens eyes on own), and complete exposure. ?? 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 Additionally, the patient was recently admitted 04/06-05/04/18 for hemorrhagic shock after being found down in a pool of blood after exsanguinating from his AV fistula. ?? Hospital Course: Christy Ambrose is a 57 y.o. male admitted 06/02 s/p ground level fall with past medical history significant for prior TBI, seizure disorder, CKD s/p renal transplant 2002 and renal papillary CA s/p southern ute nephrectomy. Patient has been followed by Dr. Hawkins and transplant medicine as recently as 05/25. Patient had recently been hospitalized s/p hemorrhagic shock from AV fistula bleed that required faciotomy and skin graft. Patient's brother reports, patient walked up a few stairs and was witnessed to have a ground level fall onto a flat landing and that the fall appeared mechanical. No seizure activity was noted by bystander or patient's brother. Patient is not able to recall the events. Alexandra lunaient suffered a left forehead laceration and was found to have a SAH at outside hospital and was transferred to [facility]. Of note, patient had been on coumadin in the past for DVT but appears to not have been taking it since last admission likely related to bleeding. His INR at outside hospital was 1.0 and warfarin was not listed on his medication list from last Wednesday. Neurosurgery was consulted for management of SAH and repeat head CT and serial neuro exams have been unchanged. Per patient's brother, patient is intermittently confused but generally functions at baseline. On 06/03 found to have chronic appearing bilateral lower extremity DVTs femoral, popliteal posterior and 1 peroneal vein each with noted collaterals. Additionally found to have Right cephalic vein thrombus and non-occlusive axillary to brachial vein clot. Discussed these findings with hematology-onc ology Dr. Cassius Lowery who agrees that these clots appear chronic and that the risk of fall and subsequent further head bleed outweighs need to anticoagulate at this time. Transplant recommending renalultrasound with patient hx of renal CA in plast. This is being performed today with plan for Outpatient follow up with transplant/nephrology for ongoing management. Neurosurgery cleared patient to have SQ heparin prophylactic dosing, yet this has been discontinued for discharge as patient continuesto be more impulsive than baseline and a fall risk. The benefit of continuing to ambulate throughout the day may be greater than the risk of increased head bleed if he fell. Plan today will be to discharge patient back to [facility] with patient's brother Lucas as transportation. Lucas has been given frequent updates with review of plan of care. Update to Dr. Mc at [facility] was given last night with plan to discharge there today. Christy Ambrose's pain was adequately controlled, he was maintaining adequate oxygen saturation on room air, and was hemodynamically stable. He was tolerating a diet without abdominal complaints and voiding adequately. WBC and Hgb were stable. He was ambulating with contact guard and cane for safety.Christy Ambrose was evaluated by the Surgery Team and deemed medically stable for discharge on 06/04/18. PLAN: NEURO: - acute pain: Continue Tylenol 1gm Q6 hours for the next 5 days and wean to PRN as tolerated. - SAH: Continue home keppra 500mg in am and 250mg at night. Follow-up head CT ordered for 4 weeks from today??with a follow-up appointment with a Neurosurgery Associate Provider, no anticoagulation or antiplatelet or NSAID such as ibuprofen until follow up. ?? SPINE: - cleared clinically and by CT by trauma team ?? ACTIVITY: - FALL RISK: activity as tolerated with assistance. Goal up to chair and ambulating TID and PRN. - encourage patient to use cane and ask for assistance. ?? PULM: - Cough and deep breathing exercises when awake. ?? CARDIAC: - Chronic hypertension, CAD: continue home hydralazine 50mg TID, metoprolol 50mg TID, amlodipine 2.5mg daily, Diltiazem 30mg Q6 hr (takes 120mg ER at home, plan to resume ER at discharge) hold aspirin until cleared by neurosurgery - Check vital signs on admission and with any clinical concern. ?? FEN/GI: - BMP with slow increase in creatinine. Potassium 4.5 from 5.5 on admission. - Diet: Renal limit to 3gm sodium, 2gm potassium - Continue home sodium bicarb. Increased dose per nephrology to 1300mg TID. - NBO: miralax, pericolace - Last BM: 06/04 ?? RENAL: - CKD, s/p donor renal transplant 2002 and southern ute nephrectomy 08/13 to papillary CA in 2017.Followed as outpatient by Dr. Hawkins. Currently involved nephrology for assistance with immunosuppression and CKD management. Continue with previous dosages for now. - pending renal ultrasound per nephrology recs. - Will need follow up this week with transplant nephrology. Spoke with Dr. Anup Taylor who will assist with updating office staff to coordinate an appointment with Dr. Hawkins this week. Ok'd fordischarge back to rehab. - Continue prograf 1mg at night and 0.5 mg - Continue Cellcept 250mg BID. - microscopic hematuria by history in chart and present with small amount of blood on this admission. Would recommend UA with microscopic follow up as outpatient. - voiding ?? HEME: - Acute blood loss anemia on likely chronic anemia: per chart 9.3 on 05/25/18. Today 7.5 from 8.6. - Patient is currently not symptomatic, Discussed with Dr. Taylor, patient will need follow up this week with nephrology/transplant. - multiple DVTs, to bilateral lower extremities and R upper extremity. Likely chronic. Will continue to defer anticoagulation related to high risk of falling and bleeding. RECOMMEND FREQUENT WALKING AND OUT OF BED ACTIVITIES WITH ASSIST FOR DVT prevention of extension. ?? ENDO: - Chronic hypothyroidism: continue synthroid 100mcg tablet daily. Recommend follow up with PCP for ongoing management. ?? MSK and SKIN: - Activity as tolerated with assist. - general wound cleansing to forehead lac. May rinse with gentle soap and water, pat dry, ok to leave open to air. Follow up in trauma clinic for suture removal in 7-10 days (after 06/09). OK for sutures to be removed at rehab or assisted living by RN in 7-10 days. ?? ID: - s/p AV fistula graft extrav with subsequent faciotomy and infection treated with triple antibiotic therapy. Now with recommended 3 month ongoing keflex for 3 months. Continue keflex 500mg BID. - Follow for signs and symptoms of infection such as fever and chills. Recommend CBC, UA and blood cultures for fevers greater than 38.5 C. ?? CODE STATUS: - full code ? PROPHYLAXIS -DVT prophylaxis: walk with assistance 3 times a day and up out of bed for all meals. no anticoagulation per neurosurgery. -GI prophylaxis: continue home PPI ?? DISPO/Discharge Planning: -transfer to floor status, pending PT/OT eval. [facility] able to take patient today if family is able to provide transport. -CRC working on d/c plan ?? CONSULTS: - 06/03 NEUROSURGERY: Neurosurgery Update ?? -??Repeat Head CT stable - Follow-up head CT ordered for 4 weeks from today??with a follow-up appointment with a Neurosurgery Associate Provider - Discharge instructions placed in multidisciplinary instructions section - Patient should continue home AEDs for seizure management, no additional Keppra is required at this time?? - Patient should remain off of anticoagulation and antiplatelets until after the follow-up appointment with Neurosurgery. The patient's INR was 1 at the time of admission and it appears that his coumadin was being held at home. - Patient is okay for discharge from a Neurosurgery standpoint ?? Please page neurosurgery at [phone]??with any questions regarding this patient. ? REFERRALS: - ?? Active issues to be addressed at discharge: -ongoing transplant-nephrology management to be seen within the week of discharge. Review of anemia, DVTs, renal ultrasound results from 06/04 study, and continued immunosuppression and CKD management. -PCP for ongoing medication management, vital sign check, antibiotic management. - lymphedema clinic ?? Incidental Findings: - none [x] Incidental Findings Form not completed completed Pending Lab Data at Discharge: none Pertinent Lab Data: Recent Labs 06/04/18 0335 06/03/18 0631 06/02/18 1612 WBC 3.8* 4.8 6.1 HGB 7.5* 7.9* 8.6* HCT 22.8* 24.1* 26.1* PLATELET 103* 119* 131* PT -- -- 10.9 INR -- -- 1.0 PTT -- -- 27 Recent Labs 06/04/18 0335 06/03/18 0631 06/02/18 1612 NA 139 140 141 K 4.5 5.1* 5.5* CL 111* 111* 108* CO2 13* 14* 15* BUN 52* 57* 59* CREATININE 3.37* 3.27* 3.11* GLUCOSE 94 101 117 CALCIUM 7.5* 7.6* 8.0* Microbiology Data: none Pertinent Imaging: Pending 06/04 renal ultrasound results* 06/03: duplex bilateral arm preliminary* results* Unable to visualize the cephalic vein; cannot exclude thrombus. Interpretation: Right: Acute, non-occlusive DVT in the axillary and one brachial vein. Superficial thrombus in the cephalic vein. No evidence of internal jugular vein thrombus. Left: No evidence of upper extremity deep or superficial basilic venous thrombus. No evidence of internal jugular vein thrombus. Unable to visualize the cephalic vein; cannot exclude thrombus. Comparison: ??No previous study in our vascular lab database for comparison. 06/03 duplex bilateral leg preliminary* results* Interpretation: RIGHT: ??Extensive chronic, non-occlusive DVT. LEFT: ??Extensive, chronic, occlusive DVT. Comparison: ??No previous study in our vascular lab database for comparison. Ct Head Wo Contrast (generic) Result Date: 06/03/2018 EXAMINATION: CT HEAD WO CONTRAST (GENERIC) CLINICAL HISTORY: f/u SAH TECHNIQUE: CT head performed without intravenous contrast administration.Coronal and sagittal reformats. COMPARISON: June 02, 2018 FINDINGS: Scattered foci of subarachnoid hemorrhage are again seen in the right inferior frontal lobe and anterior temporal lobe. Small areas of focal parenchymal contusions with punctate foci ofhemorrhage are also present in this region. Subarachnoid hemorrhage is also seen within the adjacent left anterior frontal lobe sulci. No associated mass effect. Flores-white differentiation is preserved. Similar pattern of periventricular white matter hypoattenuation. Ventricles are stable in size. Basal cisterns are patent. 1. Foci of subarachnoid hemorrhage overlying bilateral anterior inferior frontal and right anteriortemporal lobe sulci. 2. Small hemorrhagic contusions in the right frontal and anterior temporal lobe. ?? Xr Chest Ap And Pelvis Ap Trauma (generic) Result Date: 06/02/2018 EXAMINATION: XR CHEST AP AND PELVIS AP TRAUMA (GENERIC) CLINICAL HISTORY: Fell from standing head SAH TECHNIQUE: Supine radiographs of the chest and the pelvis COMPARISON: 04/06/2018 FINDINGS/IMPRESSION: Chest: Cardiomediastinal contours are magnified. Pulmonary vascular congestion. No focal consolidation. No pleural effusions. No pneumothorax. Bony and soft tissue structures areunremarkable. Pelvis: There is no acute fracture, no dislocation. Mild-moderate eccentric osteoarthritic changes of the bilateral hip joints. Mild degenerative changes of the lower lumbosacral spine.The bilateral sacroiliac joints are intact. Symphysis pubis is intact. Gas pattern of the abdomen is nonobstructing. ?? Request For 2nd Read Ct Head And Spine Result Date: 06/02/2018 EXAMINATION: REQUEST FOR 2ND READ CT HEAD AND SPINE CLINICAL HISTORY: s/p fall with head trauma, please evaluate traumatic injury; What Modality is the exam? CT Scan; Body Part (please add comments as necessary): Head and C spine; I believe a reinterpretation of this exam may alter care of Patient.Yes TECHNIQUE: CT head and cervical spine images without intravenous contrast were obtained at [facility] on 06/02/2018 at 1324. COMPARISON: CT head dated 04/06/2018 FINDINGS: Head: There is subarachnoid hemorrhage in the sulci of the right frontal lobe and anterior temporal lobe with possible small adjacent foci of intraparenchymal hemorrhage. There is local sulci effacement. No midline shift. The ventricles are unchanged in size and caliber. The basal cisterns are patent. Soft tissue swelling overlying the left frontal convexity. No associated calvarial fracture. The orbits are normal. Minimal mucosal thickening of the maxillary sinuses. The mastoid air cells are clear. Cervical spine: Normal alignment. No loss of vertebral body height or disc space. There is facet and uncovertebral arthropathy most significant at C3-4. No prevertebral soft tissue swelling. The lung apices are clear. ?? 1. Small amounts of subarachnoid blood along the right frontal and anterior temporal lobes. Possible small foci of hemorrhagic contusion in these areas. 2. No acute fracture of the cervical spine. Preliminary report signed by: Leslie Harman at 06/02/2018 5:50 PM I have personally reviewed the image(s) and the residents interpretation and agree with the findings, Charanjit Cooper at 06/02/2018 7:42 PM ?? Discharge Physical Examination: Vital Signs: Last value Range last 24hrs Temperature Temp: 36.8 ??C (98.2 ??F) Temp: [36.6 ??C (97.9 ??F)-37 ??C (98.6 ??F)] Heart Rate Heart Rate: 74 Heart Rate: [60-74] Blood Pressure BP: (!) 166/94(RN aware) BP: (135-168)/(83-104) Respiratory Rate Resp: 14 Resp: [12-17] SpO2 SpO2: 95 % SpO2: [91 %-98 %] Physical Exam: GENERAL: Alert, awake and in no apparent distress, appears healthy weight HEAD: small 2cm ecchymosis/contusion to right eyebrow with laceration sutured, no drainage. FACE: Pupils/eyes: Equal round and reactive to light 3mm bilaterally, no orbital or periorbital ecchymosis or edema. NECK: Supple, trachea midline, no masses, no edema, no contusions or abrasions, no obvious JVD. Oldscar to left upper neck and missing Left lower earlobe. LUNGS: Equal, clear breath sounds bilaterally without crepitus. CARDIAC: Regular rate and rhythm without murmur or extra heart sounds, S1-S2 ABDOMEN/GI: Soft, nontender, nondistended, no abrasions or contusions. audible Bowel sounds no distention. EXT: Normal and symmetric movement, normal range of motion, grossly edematous to all extremities, compression glove to left upper extremity. edema, distal CMS intact ??4. Capillary refill less than 3seconds and pedal/radial pulses intact. SKIN: generally intact aside from lac to right eyebrow that is well approximated with sutures, no drainage and with dry guaze. Red healing large scar/faciotomy site to left forearm. No drainage. Large left anterior thigh skin donor sites that are pink, appear to be healing well, no drainage. Open to air. Old transplant and surgical scars to abdomen and right posterior flank. Well healed, pale color. NEURO: Mental Status: Awake and alert to person. States that he is in a rehab hospital. Unable to name hospital of state exactly what was reason for hospitalization. Unable to recall when he was last admitted or for what reason. Able to answer thanksgiving what was the recent holiday. Able to state Nov and 2017 but not day. Unsteady gait, impulsive to get up. Motor: No obvious tics or tremors. Normal 5/5 strength in all tested muscle groups. Sensory: Intact to touch LINES/TUBES: PIV Current Medications: The following medications have been prescribed for you. If you notice any adverse reactions to yourmedications, please contact your primary care physician immediately or go to the nearest Emergency Department. Your Medications New Medications Dose Details cephalexin 500 mg Cap Commonly known as: KEFLEX Take 1 capsule by mouth 2 times daily for 53 days. 500 mg Quantity: 40 capsule Refills: 0 Continued medications with new dosing Dose Details losartan 100 mg Tab Commonly known as: COZAAR Take 1 tablet by mouth every morning. What changed: ?? medication strength ?? how much to take 100 mg Quantity: 90 tablet Refills: 3 sodium bicarbonate 650 mg Tab Take 2 tablets by mouth 3 times daily. What changed: how much to take 1300 mg Quantity: 60 tablet Refills: 3 Continued medications, unchanged Dose Details acetaminophen 500 mg Tab Commonly known as: TYLENOL Take 2 tablets by mouth every 6 hours. 1000 mg Quantity: 30 tablet Refills: 1 allopurinol 100 mg Tab Commonly known as: ZYLOPRIM Take 1 and 1/2 tablet daily. Quantity: 45 tablet Refills: 11 amLODIPine 2.5 mg Tab Commonly known as: NORVASC Take 2.5 mg by mouth daily. 2.5 mg Refills: 0 cholecalciferol (Vitamin D3) 50,000 unit Cap Take 1 capsule by mouth once a week. 1 each Quantity: 12 capsule Refills: 3 dilTIAZem 120 mg Cp24 Commonly known as: CARTIA XT Take 1 capsule by mouth daily. 120 mg Quantity: 90 capsule Refills: 3 docusate sodium 100 mg Cap Commonly known as: COLACE Take 1 capsule by mouth 2 times daily as needed for Constipation. 100 mg Refills: 0 hydrALAZINE 50 mg Tab Commonly known as: APRESOLINE Take 1 tablet by mouth 3 times daily. 50 mg Refills: 0 levETIRAcetam 500 mg Tab Commonly known as: KEPPRA Take 500 mg by mouth 2 times daily. Take 500 mg every morning and 250 mg every morning. 500 mg Refills: 0 levothyroxine 100 mcg Tab Commonly known as: SYNTHROID Take 100 mcg by mouth daily. 100 mcg Refills: 0 metoprolol tartrate 50 mg Tab Commonly known as: LOPRESSOR Take 1 tablet by mouth 3 times daily. 50 mg Refills: 0 multivitamin Cap Take 1 capsule by mouth daily. 1 capsule Refills: 0 mycophenolate 250 mg Cap Commonly known as: CELLCEPT Take 1 capsule by mouth 2 times daily. Kidney Transplant Z94.0. Transplant Date; 11-26-02 250 mg Quantity: 180 capsule Refills: 11 pantoprazole 20 mg Tbec Commonly known as: PROTONIX Take 1 tablet by mouth 2 times daily. 20 mg Quantity: 180 tablet Refills: 3 senna-docusate 8.6-50 mg Tab Commonly known as: PERICOLACE Take 2 tablets by mouth 2 times daily. 2 tablet Quantity: 60 tablet Refills: 11 * tacrolimus 1 mg Cap Commonly known as: PROGRAF Take 1 capsule by mouth nightly. 1 mg Refills: 0 * tacrolimus 0.5 mg Cap Commonly known as: PROGRAF Take 3 capsules by mouth daily. 1.5 mg Refills: 0 * This list has 2 medication(s) that are the same as other medications prescribed for you. Read thedirections carefully, and ask your doctor or other care provider to review them with you. STOPPED Medications aspirin 81 mg Tbec Disposition: [facility] with transportation via private car with brother Lucas Ambrose. Scheduled Appointments: The following appointments have been scheduled on your behalf: Future Appointments Date Time Provider Department Center 07/19/2018 10:30 AM Kurt Medina MD Leb Infec 5C [facility] 07/26/2018 10:00 AM LAB, THREE L Lab 3L [facility] 07/26/2018 11:00 AM Anup Hawkins MD Leb Trans 2M [facility] 08/18/2018 10:30 AM Chanel Smith MD [facility] Outpatient Services/Studies: CT Head wo Contrast (Generic) Standing Status: Future Standing Exp. Date: 01/02/19 Question Response Notes Where will study be performed? [facility] [120] Reason for exam and clinical history: tSAH s/p seizure and fall follow-up CT Special Instructions Given to Patient at Discharge:. An After Visit Summary was printed and given to the patient. Patient Instructions Discharge Instructions You were found to have the following injuries and will require follow care as outlined below: Injury Intervention Follow-up Subarachnoid hemorrhage ?? Neurosurgery consult Neurosurgery clinic 4 weeks. Continue home Keppra. No anticoagulation Left eyebrow lac Repaired with suture in trauma bay Trauma clinic for suture removal in 7-10 days As a result of your CT scans, you were found to have the following incidental findings, please discuss with your primary care provider at you next visit: - no incidental findings noted at this admission CALL YOUR PHYSICIAN IF: 1. You have a fever greater than 101F 2. You have diarrhea or vomiting for >24 hours, or stop having bowel movements and passing flatus 3. You have worsening pain, not controlled with your pain medication. 4. You develop redness, swelling, or new drainage from your wounds Prescriptions: Your Medications New Medications Dose Details cephalexin 500 mg Cap Commonly known as: KEFLEX Take 1 capsule by mouth 2 times daily for 53 days. 500 mg Quantity: 40 capsule Refills: 0 Continued medications with new dosing Dose Details losartan 100 mg Tab Commonly known as: COZAAR Take 1 tablet by mouth every morning. What changed: ?? medication strength ?? how much to take 100 mg Quantity: 90 tablet Refills: 3 sodium bicarbonate 650 mg Tab Take 2 tablets by mouth 3 times daily. What changed: how much to take 1300 mg Quantity: 60 tablet Refills: 3 Continued medications, unchanged Dose Details acetaminophen 500 mg Tab Commonly known as: TYLENOL Take 2 tablets by mouth every 6 hours. 1000 mg Quantity: 30 tablet Refills: 1 allopurinol 100 mg Tab Commonly known as: ZYLOPRIM Take 1 and 1/2 tablet daily. Quantity: 45 tablet Refills: 11 amLODIPine 2.5 mg Tab Commonly known as: NORVASC Take 2.5 mg by mouth daily. 2.5 mg Refills: 0 cholecalciferol (Vitamin D3) 50,000 unit Cap Take 1 capsule by mouth once a week. 1 each Quantity: 12 capsule Refills: 3 dilTIAZem 120 mg Cp24 Commonly known as: CARTIA XT Take 1 capsule by mouth daily. 120 mg Quantity: 90 capsule Refills: 3 docusate sodium 100 mg Cap Commonly known as: COLACE Take 1 capsule by mouth 2 times daily as needed for Constipation. 100 mg Refills: 0 hydrALAZINE 50 mg Tab Commonly known as: APRESOLINE Take 1 tablet by mouth 3 times daily. 50 mg Refills: 0 levETIRAcetam 500 mg Tab Commonly known as: KEPPRA Take 500 mg by mouth 2 times daily. Take 500 mg every morning and 250 mg every morning. 500 mg Refills: 0 levothyroxine 100 mcg Tab Commonly known as: SYNTHROID Take 100 mcg by mouth daily. 100 mcg Refills: 0 metoprolol tartrate 50 mg Tab Commonly known as: LOPRESSOR Take 1 tablet by mouth 3 times daily. 50 mg Refills: 0 multivitamin Cap Take 1 capsule by mouth daily. 1 capsule Refills: 0 mycophenolate 250 mg Cap Commonly known as: CELLCEPT Take 1 capsule by mouth 2 times daily. Kidney Transplant Z94.0. Transplant Date; 11-26-02 250 mg Quantity: 180 capsule Refills: 11 pantoprazole 20 mg Tbec Commonly known as: PROTONIX Take 1 tablet by mouth 2 times daily. 20 mg Quantity: 180 tablet Refills: 3 senna-docusate 8.6-50 mg Tab Commonly known as: PERICOLACE Take 2 tablets by mouth 2 times daily. 2 tablet Quantity: 60 tablet Refills: 11 * tacrolimus 1 mg Cap Commonly known as: PROGRAF Take 1 capsule by mouth nightly. 1 mg Refills: 0 * tacrolimus 0.5 mg Cap Commonly known as: PROGRAF Take 3 capsules by mouth daily. 1.5 mg Refills: 0 * This list has 2 medication(s) that are the same as other medications prescribed for you. Read thedirections carefully, and ask your doctor or other care provider to review them with you. STOPPED Medications aspirin 81 mg Tbec Follow up: - needs follow up with Dr. Hawkins with transplant medicine within week of discharge for ongoing renal management, immunosuppression, assessment of anemia and DVT management Neurosurgery clinic in [address] prior to appointment Trauma clinic in 7-10 days (after 06/09) for suture removal Pain medications: To reduce your chance of side effects, it is recommended that you use Tylenol as needed for pain. Alternative means of pain relief such as rest and relaxation, positioning, as well as decreasing stimulants such as coffee, tea, soft drinks, and nicotine may also help to alleviate pain. If you continue to experience significant pain 4-5 days after your discharge, it may be necessary to be re-evaluated by your physician. Driving Restrictions: - No driving Activities: - Discuss return to work or school with your provide at your follow up appointment in the trauma clinic. - Increase your activity slowly. If it hurts don't do it, but try again the following day. - You may tire easily, so frequent naps may be necessary.. - Talk with your doctor about when you can return to work or school. - You may take a shower but have someone nearby in case you need help. Diet: Eat a well-balanced diet. Fresh fruits, vegetables and fiber-containing foods are recommended. Thiswill assist in wound healing. Recommendations: - Take it easy for two weeks. Remember, If it hurts, don't do it. - Take several slow, short walks each day for the first two weeks, and gradually increase your distance. We recommend at least 4 times a day. Wound Care: - You can shower per usual routine - Do not submerge wounds under water (avoid spas, pools and bathtubs) until fully healed. - Do not use creams, oils, or ointments on the wound. - See follow-up appointments for removal of sutures/devorah. Comfort: - Some soreness can be expected. - Take your pain medication as needed and prescribed. - Taper use of pain medication as pain lessens. Follow up appointments: 1. You will have follow-up appointments at [facility] as indicated in the ???Future Appointments and Orders?? section of your discharge summary. If X-rays or CT scans have been ordered for you prior to this appointment you will need to report to the Radiology department, desk 3T, 1 hour prior to your clinic appointment time. 2. If you do not have a scheduled follow-up appointment listed at the time of discharge, you will be notified of your scheduled appointment on the next business day. Please call [phone] if you do not hear from us by that time, as your timely follow-up is very important to us. Your care was managed by the Trauma and Acute Care Surgery Team at [facility]. If you have any questions or concerns, please feel free to contact us. Provider Contact Information: General Surgery: [facility] (after business hours): CC: Primary Care Physician: SEBASTIAN GARCIA Requests for more appointments have been made and this list will likely need Update after weekend of discharge. * please call General surgery for questions! Future Appointments Date Time Provider Department Center 07/19/2018 10:30 AM Kurt Medina MD Leb Infec 5C [facility] 07/26/2018 10:00 AM LAB, THREE L Lab 3L [facility] 07/26/2018 11:00 AM Anup Hawkins MD Le Trans [facility] 08/18/2018 10:30 AM Chanel Smith MD [facility] General Instructions NON-OPERATIVE HEAD INJURY/BLEED DISCHARGE INSTRUCTIONS PRESCRIPTION INSTRUCTIONS: Please see the medication reconciliation list on this discharge summary for a current list of your medications. Stop the use of blood thinning medications until instructed otherwise by your surgical team. This includes medications known as antiplatelet, anticoagulant, and non-steroidal anti-inflammatory (NSAIDs) drugs. Common mcmf-pdh-lnkqdfj medications which should be avoided include Aspirin, ibuprofen, and naproxen among others. These medications are sometimes combined with other drugs or are sold undera trade name. Common prescription medications which should be avoided include Plavix (clopidogrel) and Coumadin (warfarin) among others. WHEN TO SEEK MEDICAL CARE: Signs or symptoms of an infection - Fever over 101F - Redness, swelling, or increasing pain around your incision - Drainage of pus, blood, or clear fluid from your incision New neurologic symptoms - Worsening headaches not [...] You may resume your usual diet. - A well-balanced diet is recommended for wound healing. - Prune juice or prunes can be added to your diet to assist with any constipation. ACTIVITY: - Avoid activities that are physically demanding or require a lot of concentration. They can make your symptoms worse and slow your recovery. - Avoid activities, such as contact or recreational sports, that could lead to a head injury. - When your health critical care specialist says you are well enough, return to your normal activities gradually, not all at once. - Talk with your health critical care specialist about when you can return to work. DRIVING: - Do not drive while taking narcotic pain medication. [x] You have had a seizure and driving is prohibited (see state regulations). Speak to your doctor for further recommendations. FOLLOW UP PLAN: Appointment: Please follow-up in the Neurosurgery Clinic in [] 2 weeks or [x] 4-6 weeks with a Neurosurgery Associate Provider. Please call the Neurosurgery Office at [phone] if you do not receive a scheduled appointment within two weeks Imaging: [] No Imaging required at follow-up. [x] Head CT Your care was managed by the Trauma and Acute Care Surgery Team at [facility]. If you have any questions or concerns, please feel free to contact us. Provider Contact Information: General Surgery Clinic: Nurses line for questions: [facility] (after business hours): CC: Sebastian Garcia DO [facility] Lucrecia Mclean APRN Signed: Lela Evans APRN Department of Surgery 06/04/2018 Trauma pager [phone] documented in this encounter Discharge Instructions * Discharge Instructions* Dmitriy Hoffman APRN - 06/03/2018 9:09 AM EST NON-OPERATIVE HEAD INJURY/BLEED DISCHARGE INSTRUCTIONS PRESCRIPTION INSTRUCTIONS: Please see the medication reconciliation list on this discharge summary for a current list of your medications. Stop the use of blood thinning medications until instructed otherwise by your surgical team. This includes medications known as antiplatelet, anticoagulant, and non-steroidal anti-inflammatory (NSAIDs) drugs. Common rcxu-nsa-sruqorr medications which should be avoided include Aspirin, ibuprofen, and naproxen among others. These medications are sometimes combined with other drugs or are sold undera trade name. Common prescription medications which should be avoided include Plavix (clopidogrel) and Coumadin (warfarin) among others. WHEN TO SEEK MEDICAL CARE: Signs or symptoms of an infection - Fever over 101F - Redness, swelling, or increasing pain around your incision - Drainage of pus, blood, or clear fluid from your incision New neurologic symptoms - Worsening headaches not [...] You may resume your usual diet. - A well-balanced diet is recommended for wound healing. - Prune juice or prunes can be added to your diet to assist with any constipation. ACTIVITY: - Avoid activities that are physically demanding or require a lot of concentration. They can make your symptoms worse and slow your recovery. - Avoid activities, such as contact or recreational sports, that could lead to a head injury. - When your health critical care specialist says you are well enough, return to your normal activities gradually, not all at once. - Talk with your health critical care specialist about when you can return to work. DRIVING: - Do not drive while taking narcotic pain medication. [x] You have had a seizure and driving is prohibited (see state regulations). Speak to your doctor for further recommendations. FOLLOW UP PLAN: Appointment: Please follow-up in the Neurosurgery Clinic in [] 2 weeks or [x] 4-6 weeks with a Neurosurgery Associate Provider. Please call the Neurosurgery Office at [phone] if you do not receive a scheduled appointment within two weeks Imaging: [] No Imaging required at follow-up. [x] Head CT * Patient Instructions* Lela Evans APRN - 06/03/2018 9:08 AM EST Images from the original note were not included. Discharge Instructions You were found to have the following injuries and will require follow care as outlined below: Injury Intervention Follow-up Subarachnoid hemorrhage ?? Neurosurgery consult Neurosurgery clinic 4 weeks. Continue home Keppra. No anticoagulation Left eyebrow lac Repaired with suture in trauma bay Trauma clinic for suture removal in 7-10 days As a result of your CT scans, you were found to have the following incidental findings, please discuss with your primary care provider at you next visit: - no incidental findings noted at this admission CALL YOUR PHYSICIAN IF: 1. You have a fever greater than 101F 2. You have diarrhea or vomiting for >24 hours, or stop having bowel movements and passing flatus 3. You have worsening pain, not controlled with your pain medication. 4. You develop redness, swelling, or new drainage from your wounds Prescriptions: Your Medications New Medications Dose Details cephalexin 500 mg Cap Commonly known as: KEFLEX Take 1 capsule by mouth 2 times daily for 53 days. 500 mg Quantity: 40 capsule Refills: 0 Continued medications with new dosing Dose Details losartan 100 mg Tab Commonly known as: COZAAR Take 1 tablet by mouth every morning. What changed: ?? medication strength ?? how much to take 100 mg Quantity: 90 tablet Refills: 3 sodium bicarbonate 650 mg Tab Take 2 tablets by mouth 3 times daily. What changed: how much to take 1300 mg Quantity: 60 tablet Refills: 3 Continued medications, unchanged Dose Details acetaminophen 500 mg Tab Commonly known as: TYLENOL Take 2 tablets by mouth every 6 hours. 1000 mg Quantity: 30 tablet Refills: 1 allopurinol 100 mg Tab Commonly known as: ZYLOPRIM Take 1 and 1/2 tablet daily. Quantity: 45 tablet Refills: 11 amLODIPine 2.5 mg Tab Commonly known as: NORVASC Take 2.5 mg by mouth daily. 2.5 mg Refills: 0 cholecalciferol (Vitamin D3) 50,000 unit Cap Take 1 capsule by mouth once a week. 1 each Quantity: 12 capsule Refills: 3 dilTIAZem 120 mg Cp24 Commonly known as: CARTIA XT Take 1 capsule by mouth daily. 120 mg Quantity: 90 capsule Refills: 3 docusate sodium 100 mg Cap Commonly known as: COLACE Take 1 capsule by mouth 2 times daily as needed for Constipation. 100 mg Refills: 0 hydrALAZINE 50 mg Tab Commonly known as: APRESOLINE Take 1 tablet by mouth 3 times daily. 50 mg Refills: 0 levETIRAcetam 500 mg Tab Commonly known as: KEPPRA Take 500 mg by mouth 2 times daily. Take 500 mg every morning and 250 mg every morning. 500 mg Refills: 0 levothyroxine 100 mcg Tab Commonly known as: SYNTHROID Take 100 mcg by mouth daily. 100 mcg Refills: 0 metoprolol tartrate 50 mg Tab Commonly known as: LOPRESSOR Take 1 tablet by mouth 3 times daily. 50 mg Refills: 0 multivitamin Cap Take 1 capsule by mouth daily. 1 capsule Refills: 0 mycophenolate 250 mg Cap Commonly known as: CELLCEPT Take 1 capsule by mouth 2 times daily. Kidney Transplant Z94.0. Transplant Date; 11-26-02 250 mg Quantity: 180 capsule Refills: 11 pantoprazole 20 mg Tbec Commonly known as: PROTONIX Take 1 tablet by mouth 2 times daily. 20 mg Quantity: 180 tablet Refills: 3 senna-docusate 8.6-50 mg Tab Commonly known as: PERICOLACE Take 2 tablets by mouth 2 times daily. 2 tablet Quantity: 60 tablet Refills: 11 * tacrolimus 1 mg Cap Commonly known as: PROGRAF Take 1 capsule by mouth nightly. 1 mg Refills: 0 * tacrolimus 0.5 mg Cap Commonly known as: PROGRAF Take 3 capsules by mouth daily. 1.5 mg Refills: 0 * This list has 2 medication(s) that are the same as other medications prescribed for you. Read thedirections carefully, and ask your doctor or other care provider to review them with you. STOPPED Medications aspirin 81 mg Tbec Follow up: - needs follow up with Dr. Hawkins with transplant medicine within week of discharge for ongoing renal management, immunosuppression, assessment of anemia and DVT management Neurosurgery clinic in [address] prior to appointment Trauma clinic in 7-10 days (after 06/09) for suture removal Pain medications: To reduce your chance of side effects, it is recommended that you use Tylenol as needed for pain. Alternative means of pain relief such as rest and relaxation, positioning, as well as decreasing stimulants such as coffee, tea, soft drinks, and nicotine may also help to alleviate pain. If you continue to experience significant pain 4-5 days after your discharge, it may be necessary to be re-evaluated by your physician. Driving Restrictions: - No driving Activities: - Discuss return to work or school with your provide at your follow up appointment in the trauma clinic. - Increase your activity slowly. If it hurts don't do it, but try again the following day. - You may tire easily, so frequent naps may be necessary.. - Talk with your doctor about when you can return to work or school. - You may take a shower but have someone nearby in case you need help. Diet: Eat a well-balanced diet. Fresh fruits, vegetables and fiber-containing foods are recommended. Thiswill assist in wound healing. Recommendations: - Take it easy for two weeks. Remember, If it hurts, don't do it. - Take several slow, short walks each day for the first two weeks, and gradually increase your distance. We recommend at least 4 times a day. Wound Care: - You can shower per usual routine - Do not submerge wounds under water (avoid spas, pools and bathtubs) until fully healed. - Do not use creams, oils, or ointments on the wound. - See follow-up appointments for removal of sutures/devorah. Comfort: - Some soreness can be expected. - Take your pain medication as needed and prescribed. - Taper use of pain medication as pain lessens. Follow up appointments: 1. You will have follow-up appointments at [facility] as indicated in the ???Future Appointments and Orders?? section of your discharge summary. If X-rays or CT scans have been ordered for you prior to this appointment you will need to report to the Radiology department, desk 3T, 1 hour prior to your clinic appointment time. 2. If you do not have a scheduled follow-up appointment listed at the time of discharge, you will be notified of your scheduled appointment on the next business day. Please call [phone] if you do not hear from us by that time, as your timely follow-up is very important to us. Your care was managed by the Trauma and Acute Care Surgery Team at [facility]. If you have any questions or concerns, please feel free to contact us. Provider Contact Information: General Surgery: [facility] (after business hours): CC: Primary Care Physician: SEBASTIAN GARCIA Requests for more appointments have been made and this list will likely need Update after weekend of discharge. * please call General surgery for questions! Future Appointments Date Time Provider Department Center 07/19/2018 10:30 AM Kurt Medina MD Leb Infec 5C [facility] 07/26/2018 10:00 AM [facility] 07/26/2018 11:00 AM Anup Hawkins MD Leb Trans 2M [facility] 08/18/2018 10:30 AM Chanel Smith MD [facility] documented in this encounter Medications at Time [...] daily. 2018 documented as of this encounter Progress Notes * Blanca Martinez - 06/04/2018 1:26 PM EST Office of Care Management/Scientific Specialist Patient has been offered a snf bed at [facility]. No MD to MD report necessary. Please call Nursing Report to , ask for outboard motor inspector. Info to accompany patient: Narcotic Prescriptions PASRR Copies of Medication Administration Records and IV sheets for past 10 days. Plan: Scientific Specialist will be available to the patient and Route Supervisor-RN and/or Social Workerfor further assistance. Patient will be discharged to: [facility] [place] [address] Blanca Martinez Scientific Specialist Pager [phone] * Venus Nagel RN - 06/04/2018 12:29 PM EST OFFICE OF CARE MANAGEMENT/Route Supervisor/PROGRESS NOTE e-DH reviewed. Report received from Trauma Team on [id number] Patient continues to improve and has an accepted bed at [facility] [phone]. (Pt is returning to facility from this admission). [facility] is to transport via car. CM confirmed with facility they are aware and accepted patient for today's admission. Plan: CM will continue to follow for coordination of care and to facilitate discharge planning. Venus Nagel RN CM Pager [phone] * Erika Vivas RN - 06/03/2018 3:06 PM EST [facility] Patient AOx 4, HRH, lung sounds clear, +bs, lbm 06/03, voiding via urinal. Baseline numbness to LUE. Pain 3/10 at this time, tylenol controlling pain. Patient oriented to room, call daniels to bedside, please see flowsheet for full assessment. Willcontinue to monitor Erika Vivas RN * Joanna Moore RD - 06/03/2018 12:17 PM EST Nutrition Initial Note Christy Ginna Ambrose is a 57 y.o. male Reason for intervention: Education Nutrition Recommendations: Continue current diet Monitor weight trends New phos level Patient Active Problem List Diagnosis Code ??? [...] ml/min N18.4 ??? 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 H/O kidney transplant Z94.0 ??? Weight loss R63.4 ??? Gastrointestinal hemorrhage K92.2 ??? Bradycardia R00.1 ??? Left renal mass N28.89 ??? 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 Surgery follow-up Z09 ??? Subarachnoid hemorrhage I60.9 Past Medical History: Diagnosis Date ??? BP (high blood pressure) ??? DVT (deep venous thrombosis) ??? Gout ??? Hypertension ??? Kidney problem ??? Pneumonia ??? TBI (traumatic brain injury) 1979 Active Orders Diet Renal diet 3 GM NA; 2 GM K Frequency: Effective Now Number of Occurrences: Until Specified Admit Weight: Estimated body mass index is 26.77 kg/m?? as calculated from the following: Height as of this encounter: 182.9 cm (6'). Weight as of 05/25/18: 89.5 kg (197 lb 6.4 oz). [place] Body Weight (IBW): [place] body weight: 77.6 kg (171 lb 1.2 oz) Adjusted ideal body weight: 82.4 kg (181 lb 9.7 oz) UBW: 80kg Today's medications: ??? cephalexin (KEFLEX) capsule 500 mg ??? [START ON 06/04/2018] losartan (COZAAR) tablet 100 mg ??? fentaNYL (PF) 50mcg/mL injection ??? acetaminophen (TYLENOL) tablet 1,000 mg ??? allopurinol (ZYLOPRIM) tablet 150 mg ??? docusate sodium (COLACE) capsule 100 mg ??? hydrALAZINE (APRESOLINE) tablet 50 mg ??? levothyroxine (SYNTHROID) tablet 100 mcg ??? amLODIPine (NORVASC) tablet 2.5 mg ??? metoprolol tartrate (LOPRESSOR) tablet 50 mg ??? mycophenolate (CELLCEPT) capsule 250 mg ??? senna-docusate (PERICOLACE) 8.6-50 mg per tablet 2 tablet ??? sodium bicarbonate tablet 650 mg ??? tacrolimus (PROGRAF) capsule 1.5 mg ??? tacrolimus (PROGRAF) capsule 1 mg ??? sodium chloride 0.9 % flush 5 mL ??? sodium chloride 0.9 % flush 5-20 mL ??? lidocaine (XYLOCAINE) 10 mg/mL (1 %) injection 3 mg ??? famotidine (PEPCID) tablet 20 mg OR famotidine (PEPCID) injection 20 mg ??? nalOXone (NARCAN) injection 0.2 mg ??? pantoprazole (PROTONIX) injection 40 mg ??? dilTIAZem (CARDIZEM) 12 mg/mL pedi oral liquid 30 mg ??? levETIRAcetam (KEPPRA) tablet 500 mg ??? labetalol (NORMODYNE,TRANDATE) injection 10 mg ??? hydrALAZINE (APRESOLINE) injection 5 mg Lab Results Component Value Date NA 140 06/03/2018 K 5.1 (H) 06/03/2018 CL 111 (H) 06/03/2018 CO2 14 (L) 06/03/2018 BUN 57 (H) 06/03/2018 CREATININE 3.27 (H) 06/03/2018 GLUCOSE 101 06/03/2018 MAGNESIUM 0.86 05/25/2018 CALCIUM 7.6 (L) 06/03/2018 PHOS 5.6 (H) 05/25/2018 AST 17 05/25/2018 ALT 10 05/25/2018 ALKPHOS 91 05/25/2018 BILITOT 0.2 05/25/2018 BILIDIR 0.2 05/15/2017 TRIG 76 11/26/2016 Last Bowel Movement: 06/03/18 Assessment: pt states he is eating well. Potassium food list provided and discussed. Pt verbalized good understanding. Pt declined supplements at this time. Nutrition will continue to follow. Joanna Moore RD Beeper #: [id number] * Lawrence Flores MD - 06/03/2018 12:07 PM EST Trauma Daily Progress Note ID/Mechanism of injury:57 y.o. Male admitted s/p ground level fall on 06/02 with the following injuries: Injury Intervention Follow-up Subarachnoid hemorrhage Neurosurgery consult Neurosurgery clinic 4 weeks. Continue home Keppra. No anticoagulation Left eyebrow lac Repaired with suture in trauma bay Trauma clinic for suture removal in 7-10 days Problem List: - Acute pain - Chronic seizure disorder - Chronic hypertension - Chronic immunosuppression s/p transplant - Chronic kidney disease Procedures: none Secondary Issues: Past Medical History: Diagnosis Date ??? BP (high blood pressure) ??? DVT (deep venous thrombosis) ??? Gout ??? Hypertension ??? Kidney problem ??? Pneumonia ??? TBI (traumatic brain injury) 1980 24 Hour Events: - neurologic exam stable, - neurosurgery cleared pt for discharge after repeat head CT relatively unchanged. - Transplant/nephrology envolved for assistance in managing CKD and immunosuppression. Current Medications: ??? cephALEXin 500 mg Oral BID ??? [START ON 06/04/2018] losartan 100 mg Oral QAM ??? acetaminophen 1,000 mg Oral Q6H ??? allopurinol 150 mg Oral Daily ??? hydrALAZINE 50 mg Oral TID ??? levothyroxine 100 mcg Oral Daily ??? amLODIPine 2.5 mg Oral Daily ??? metoprolol tartrate 50 mg Oral TID ??? mycophenolate 250 mg Oral BID ??? senna-docusate 2 tablet Oral BID ??? sodium bicarbonate 650 mg Oral TID ??? tacrolimus 1.5 mg Oral Daily ??? tacrolimus 1 mg Oral Nightly ??? sodium chloride 0.9 % 5 mL Intravenous BID ??? famotidine 20 mg Oral BID Or ??? famotidine 20 mg Intravenous BID ??? pantoprazole 40 mg Intravenous Daily ??? dilTIAZem 30 mg Oral Q6H EDWARD ??? levETIRAcetam 500 mg Oral BID Vital Signs: VITALS (24hr Range): Temp Temp: [36 ??C (96.8 ??F)-36.5 ??C (97.7 ??F)] , HR Heart Rate: [54-67] , BP BP: (129-175)/(81-117) , RR Resp: [12-19] , SpO2 SpO2: [97 %-98 %] on room air I/O: Intake/Output Summary (Last 24 hours) at 06/03/2018 1208 Last data filed at 06/03/2018 1207 Gross per 24 hour Intake 1683 ml Output 1925 ml Net -242 ml Physical Exam: GENERAL: Alert, awake and in no apparent distress, appears healthy weight HEAD: small 2cm ecchymosis/contusion to right eyebrow with laceration sutured, no drainage. FACE: Pupils/eyes: Equal round and reactive to light 3mm bilaterally, no orbital or periorbital ecchymosis or edema. No scleral icterus, subconjunctival hemorrhage, no injection. EOMs intact Ears: Right TM clear to visualization left obscured by cerumen. Hearing intact bilaterally, no otorrhea, symmetrical Midface: No tenderness, no edema no contusions, no lacerations or abrasions over the midface. No rhinorrhea Oropharynx: Nonbloody, moist mucous membranes noted, no lacerations, no malocclusions, a few missing teeth, patient states that this is baseline. NECK: Supple, trachea midline, no masses, no edema, no contusions or abrasions, no obvious JVD. No bruits or thrills over carotid arteries, c-collar removed with negative exam. Old scar to left upperneck and missing Left lower earlobe. LUNGS: Equal, clear breath sounds bilaterally without crepitus, no obvious deformities of the chest, no paroxysmal movements, no use of accessory muscles for breathing CARDIAC: Regular rate and rhythm without murmur or extra heart sounds, S1-S2 ABDOMEN/GI: Soft, nontender, nondistended, no abrasions or contusions. audible Bowel sounds no distention, hernias or scars. Without obvious ascites PELVIS: Stable to iliac and anterior/posterior manipulation. RECTAL: Deferred rectal exam, symmetrical gluteal tone. No evidence of hemorrhoids or fissures. EXT: Normal and symmetric movement, normal range of motion, grossly edematous to all extremities, compression glove to left upper extremity. edema, distal CMS intact ??4. Capillary refill less than 3seconds and pedal/radial pulses intact. SKIN: generally intact aside from lac to right eyebrow that is well approximated with sutures, no drainage and with dry guaze. Red healing large scar/faciotomy site to left forearm. No drainage. Large left anterior thigh skin donor sites that are pink, appear to be healing well, no drainage. Open to air. Old transplant and surgical scars to abdomen and right posterior flank. Well healed, pale color. NEURO: Mental Status: Awake and alert to person. Oriented to [facility] and hospital. Unable to name hospital of state exactly what was reason for hospitalization. Unable to recall when he was last admitted or for what reason. Able to answer thanksgiving when asked what was the recent holiday. Patient's brother states that patient is slightly more confused than baseline but it is difficult to say how. Cranial Nerves: CN II-XII intact Motor: No obvious tics or tremors. Normal 5/5 strength in all tested muscle groups. Sensory: Intact to touch SPINE: No step-off, tenderness midline or paraspinal, edema or eccymosis over cervical,thoracic or lumbar spines LINES/TUBES: PIV Labs: Recent Labs 06/03/18 0631 06/02/18 1612 WBC 4.8 6.1 HGB 7.9* 8.6* HCT 24.1* 26.1* PLATELET 119* 131* PT -- 10.9 INR -- 1.0 PTT -- 27 Recent Labs 06/03/18 0631 06/02/18 1612 NA 140 141 K 5.1* 5.5* CL 111* 108* CO2 14* 15* BUN 57* 59* CREATININE 3.27* 3.11* GLUCOSE 101 117 CALCIUM 7.6* 8.0* Microbiology: none New Imaging: Ct Head Wo Contrast (generic) Result Date: 06/03/2018 EXAMINATION: CT HEAD WO CONTRAST (GENERIC) CLINICAL HISTORY: f/u SAH TECHNIQUE: CT head performed without intravenous contrast administration.Coronal and sagittal reformats. COMPARISON: June 02, 2018 FINDINGS: Scattered foci of subarachnoid hemorrhage are again seen in the right inferior frontal lobe and anterior temporal lobe. Small areas of focal parenchymal contusions with punctate foci ofhemorrhage are also present in this region. Subarachnoid hemorrhage is also seen within the adjacent left anterior frontal lobe sulci. No associated mass effect. Flores-white differentiation is preserved. Similar pattern of periventricular white matter hypoattenuation. Ventricles are stable in size. Basal cisterns are patent. 1. Foci of subarachnoid hemorrhage overlying bilateral anterior inferior frontal and right anteriortemporal lobe sulci. 2. Small hemorrhagic contusions in the right frontal and anterior temporal lobe. Xr Chest Ap And Pelvis Ap Trauma (generic) Result Date: 06/02/2018 EXAMINATION: XR CHEST AP AND PELVIS AP TRAUMA (GENERIC) CLINICAL HISTORY: Fell from standing head SAH TECHNIQUE: Supine radiographs of the chest and the pelvis COMPARISON: 04/06/2018 FINDINGS/IMPRESSION: Chest: Cardiomediastinal contours are magnified. Pulmonary vascular congestion. No focal consolidation. No pleural effusions. No pneumothorax. Bony and soft tissue structures areunremarkable. Pelvis: There is no acute fracture, no dislocation. Mild-moderate eccentric osteoarthritic changes of the bilateral hip joints. Mild degenerative changes of the lower lumbosacral spine.The bilateral sacroiliac joints are intact. Symphysis pubis is intact. Gas pattern of the abdomen is nonobstructing. Request For 2nd Read Ct Head And Spine Result Date: 06/02/2018 EXAMINATION: REQUEST FOR 2ND READ CT HEAD AND SPINE CLINICAL HISTORY: s/p fall with head trauma, please evaluate traumatic injury; What Modality is the exam? CT Scan; Body Part (please add comments as necessary): Head and C spine; I believe a reinterpretation of this exam may alter care of Patient.Yes TECHNIQUE: CT head and cervical spine images without intravenous contrast were obtained at [facility] on 06/02/2018 at 1324. COMPARISON: CT head dated 04/06/2018 FINDINGS: Head: There is subarachnoid hemorrhage in the sulci of the right frontal lobe and anterior temporal lobe with possible small adjacent foci of intraparenchymal hemorrhage. There is local sulci effacement. No midline shift. The ventricles are unchanged in size and caliber. The basal cisterns are patent. Soft tissue swelling overlying the left frontal convexity. No associated calvarial fracture. The orbits are normal. Minimal mucosal thickening of the maxillary sinuses. The mastoid air cells are clear. Cervical spine: Normal alignment. No loss of vertebral body height or disc space. There is facet and uncovertebral arthropathy most significant at C3-4. No prevertebral soft tissue swelling. The lung apices are clear. 1. Small amounts of subarachnoid blood along the right frontal and anterior temporal lobes. Possible small foci of hemorrhagic contusion in these areas. 2. No acute fracture of the cervical spine. Preliminary report signed by: Leslie Harman at 06/02/2018 5:50 PM I have personally reviewed the image(s) and the residents interpretation and agree with the findings, Charanjit Cooper at 06/02/2018 7:42 PM Assessment: Christy Ambrose is a 57 y.o. 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 Patient has been followed by Dr. Hawkins and transplant medicine as recently as 05/25. Patient had recently been hospitalized s/p hemorrhagic shock from AV fistula bleed that required faciotomy and skin graft. Patient's brother reports, patient walked up a few stairs and was witnessed to have a ground level fall onto a flat landing and that the fall appeared mechanical. No seizure activity was noted by bystander or patient's brother. Patient is not able to recall the events. Patient suffered a left forehead lacer ation and was found to have a SAH at outside hospital and was transferred to [facility]. Of note, patienthad been on coumadin in the past for DVT but appears to not have been taking it since last admission likely related to bleeding. His INR at outside hospital was 1.0 and warfarin was not listed on hismedication list from last Wednesday. Neurosurgery was consulted for management of SAH and repeat head CT and serial neuro exams have been unchanged. Per patient's brother, patient is intermittently confused but generally functions at baseline. He states that patient appears slightly more confused today, but that it is difficult to d escribe exactly. Neurosurgery team has cleared patient for discharge and patient is pending evaluations by PT and OT for discharge clearance. Plan: NEURO: - acute pain: Tylenol 1gm Q6 hours - SAH: neuro checks Q4 until discharge. Continue home keppra 500mg in am and 250mg at night. Follow-up head CT ordered for 4 weeks from today with a follow- up appointment with a Neurosurgery Associate Provider, no AC or antiplatelet until follow up. SPINE: - cleared clinically and by CT by trauma team ACTIVITY: - as tolerated with assistance. Goal up to chair and ambulating TID and PRN. PULM: - Cough and deep breathing exercises. - IS hourly while awake. 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 Hawkins. Currently involved nephrology for assistance with immunosuppression and CKD management. Continue with previous dosages and recheck prograf trough in am if still in-patient. - Continue prograf 1mg at night and 0.5 mg in am with trough level prior to am dose if still in hospital. Continue Cellcept 250mg BID. - microscopic hematuria by history in chart and present with small amount of blood on this admission. Would recommend UA with microscopic follow up as outpatient. - voiding HEME: - Acute blood loss anemia on likely chronic anemia: per chart 9.3 on 05/25/18. Today 7.9 from 8.6. Recheck in am. Would transfuse for hgb <7 or symptomatic. ENDO: - Chronic hypothyroidism: continue synthroid 100mcg daily MSK and SKIN: - Occupational therapy to see for lymphedema bilateral upper extremity compression gloves. - Activity as tolerated. - general wound cleansing to forehead lac. May rinse with gentle soap and water, pat dry, ok to leave open to air. Follow up in trauma clinic for suture removal in 7-10 days (after 06/09). OK for sutures to be removed at rehab or assisted living by RN in 7-10 days. ID: - s/p AV fistula graft extrav with subsequent faciotomy and infection treated with triple antibiotic therapy. Now with recommended 3 month ongoing keflex for 3 months. Continue keflex 500mg BID. - Follow for signs and symptoms of infection - Temp, if +38.5C then gonzalez culture and obtain WBC CODE STATUS: - full code LINES: - PIV PROPHYLAXIS -DVT prophylaxis: SCD, no anticoagulation per neurosurgery. Will obtain duplex unless pt dischargestoday. -GI prophylaxis: continue home protonix 20mg BID DISPO/Discharge Planning: -transfer to floor status, pending PT/OT eval. [facility] rehab able to take patient today if family is able to provide transport. -CRC working on d/c plan CONSULTS: - 06/03 NEUROSURGERY: Neurosurgery Update ?? - Repeat Head CT stable - Follow-up head CT ordered for 4 weeks from today with a follow-up appointment with a NeurosurgeryAssociate Provider - Discharge instructions placed in multidisciplinary instructions section - Patient should continue home AEDs for seizure management, no additional Keppra is required at this time - Patient should remain off of anticoagulation and antiplatelets until after the follow-up appointment with Neurosurgery. The patient's INR was 1 at the time of admission and it appears that his coumadin was being held at home. - Patient is okay for discharge from a Neurosurgery standpoint ?? Please page neurosurgery at [phone] with any questions regarding this patient. REFERRALS: -none to date Active issues to be addressed at discharge: -ongoing transplant-nephrology management. -PCP for ongoing medication management, vital sign check, antibiotic management. - lymphedema clinic Incidental Findings: - none [] Incidental Findings Form Completed Lela Evans APRN 06/03/2018 Trauma pager [phone] ADDENDUM: I have independently seen and evaluated the patient. I agree with the assessment and planlisted above with the following additions: Christy Ambrose is a 57 y.o. male status post fall from standing under unknown mechanism due to retrograde amnesia. Noted to have subarachnoid hemorrhage and scalp laceration. Laceration sutured closed. Subarachnoid hemorrhage stable and neuro exam unchanged. Appreciate neurosurgical recommendations and follow-up. Advance diet as tolerated. Appreciate transplant medicine input for medication management. PT/OT. Multiple DVTs likely of a chronic nature noted throughout extremities. Will report findings to transplant medicine as anticoagulation contraindicated at this time. Would recommend againstanticoagulation at any point given instability of patient's gait. Will defer this decision to primary medical service. Discharge planning. I certify that the patient continues to require IPI level of care based on subarachnoid hemorrhage. LAWRENCE FLORES MD * aMria De Jesus Lopez RN - 06/03/2018 12:01 PM EST RN-GROUP SALES REPRESENTATIVE, Office of Care Management Maria De Jesus Lopez RN,BSN, ACM Pager # [phone] e-DH reviewed patient discussed with multidisciplinary team. Patient know to [employer] and he has completed IA. Patient reportedly was at: [facility] [place] [address] Planning to transition to [facility] assisted living. Team reporting medically clear for discharge once seen by rehab. Rehab has been called. [employer] note says OR today for fasciotomy closure- ask team to clarify. If he clears rehab and is not going to OR he would be ready for discharge today. [employer]/Route Supervisor remains available as needed for coordination of care and discharge planning. * Dmitriy Hoffman APRN - 06/03/2018 9:03 AM EST Neurosurgery Update - Repeat Head CT stable - Follow-up head CT ordered for 4 weeks from today with a follow-up appointment with a NeurosurgeryAssociate Provider - Discharge instructions placed in multidisciplinary instructions section - Patient should continue home AEDs for seizure management, no additional Keppra is required at this time - Patient should remain off of anticoagulation and antiplatelets until after the follow-up appointment with Neurosurgery. The patient's INR was 1 at the time of admission and it appears that his coumadin was being held at home. - Patient is okay for discharge from a Neurosurgery standpoint Please page neurosurgery at [phone] with any questions regarding this patient. documented in this encounter H&P Notes * Lawrence Flores MD - 06/02/2018 4:23 PM EST TRAUMA & ACUTE SURGICAL CARE ADMISSION HISTORY AND PHYSICAL Patient Name: Christy Ambrose Level of Activation: Alert MR#: [id number] [ ]Scene Call or [X]Hospital Transfer : [id number] CC/MECHANISM OF INJURY: 57 y.o. Male s/p fall, on aspirin, on 06/02 HISTORY OF PRESENT ILLNESS: Christy Ambrose is a 57 y.o. male presents to [facility] s/p fall on aspirin. Description of events leadingup to injury includes patient fell down a few steps, onto left head. Patient unable to recall events. Bleeding noted from left head, controlled on scene with direct pressure. Brought to [facility] where heavy venous bleeding was noted from head laceration, controlled with two sutures and pressure dressing. Altered mental status noted at OSH, eportedly waxing and waning. CT head at OSH demonstrated subarachnoid hemorrhage. Patient reported to OSH that he is on coumadin. His INR at OSH was 1.0. A cervical collar was applied and the patient was transferred to [facility]. Primary survey revealed: intact airway, equal breath sounds/respirations, present 2+ peripheral pulses with stable vital signs and no signs of bleeding, GCS 15 (6 - Follows simple motor commands, 5 -Alert and oriented, 4 - Opens eyes on own), and complete exposure. 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 Additionally, the patient was recently admitted 04/06-05/04/18 for hemorrhagic shock after being found down in a pool of blood after exsanguinating from his AV fistula. Secondary survey is as follows. PAST MEDICAL AND SURGICAL HISTORY: Past Medical History: Diagnosis Date ??? BP [...] [facility] OR ??? PRO DECOMPRESS FOREARM, BRACH ART EXPLOR Left 04/06/2018 FASCIOTOMY, FOREARM, WITH BRACHIAL ARTERY EXPLORATION (WRVU 8.41) performed by Lida Peter MDat [facility] OR ??? PRO [...] (WRVU 0.55) performed by Odalis Elias MD [facility] MAIN OR ??? PRO REBL VES GRAFT, UP EXTREM Left 04/06/2018 REPAIR BLOOD VESSEL WITH GRAFT OTHER THAN VEIN, UPPER EXTREMITY (WRVU 15.83) performed by Lida Peter MD at [facility] MAIN OR ??? PRO RELIEVE PRESSURE ON NERVE(S) Left 04/06/2018 (MSURG) CARPAL TUNNEL (WRVU 4.82) performed by Silviano Sparks MD at [facility] MAIN OR ??? PRO REPAIR INTERMEDIATE S/A/T/E 2.6-7.5 CM 04/19/2012 REPAIR INTERMEDIATE WOUND, (NO HANDS OR FEET) 2.6 TO 7.5CM, UPPER EXTREMITY performed by SABRINA SANCHEZ at [facility] MAIN OR ? ? PRO REPAIR INTERMEDIATE S/A/T/E > 30.0 CM Left 04/14/2018 REPAIR INTERMEDIATE WOUND, (NO HANDS OR FEET) >30.0CM, UPPER EXTREMITY (WRVU 5) performed by Yimi Easton MD at [facility] MAIN OR ??? PRO REVISE MEDIAN N/CARPAL TUNNEL SURG Left 04/06/2018 MEDIAN NERVE DECOMPRESSION (CARPAL TUNNEL RELEASE) (WRVU 4.97) performed by Lida Peter MD [facility] MAIN OR ? ? PRO SPLIT GRFT TRUNK, ARM, LEG <100SQCM Left 04/26/2018 SPLIT THICK SKIN GRAFT,100 SQ CM OR LESS, ARMS (WRVU 9.9) performed by Silviano Sparks MD at [facility] MAIN OR ? ? PRO SPLIT GRFT, HEAD, FAC, HAND, FEET <100SQCM N/A 02/20/2016 SPLIT THICKNESS SKIN SPLIT GRAFT,100SQ CM OR LESS, NECK performed by Miguel Angel Moreno MD at [facility] OR ??? PRO SPLIT GRFT, TRUNK, ARM, LEG EA 100SQCM N/A 04/26/2018 EA.ADDITIONAL 100SQ.CM STSG (WRVU 1.72) performed by Silviano Sparks MD at [facility] MAIN OR ??? PRO UPPER GI ENDOSCOPY, BIOPSY N/A 05/13/2017 EGD WITH BIOPSY (WRVU 2.49) performed by Aditya Barrera MD at [facility] ENDOSCOPY ??? PRO VASCULAR SURGERY PROCEDURE UNLIST Left 11/20/2015 LIGATION\REPAIR AV FISTULA performed by Camilo Ireland MD at [facility] MAIN OR ??? PRO VASCULAR SURGERY PROCEDURE UNLIST Left 11/20/2015 EXCISION VEIN FROM HAND performed by Camilo Ireland MD at [facility] MAIN OR ??? US RENAL TRANSPLANT BIOPSY 12/31/2010 ALLERGIES: Allergies Allergen Reactions ??? Benazepril Hcl ??? Codeine Other (See Comments) Patient does not know reaction ??? Hydrochlorothiazide ??? Pollen Extracts Sneezing/runny nose MEDICATIONS: Hydralazine Levetiracetam Tacrolimus Mycophenolate mofetil Allopurinol Metoprolol Pantoprazole Sodium bicarbonate Diltiazem Losartan Acetaminophen Levothyroxine (Not in a hospital admission) FAMILY HISTORY: Denies family history of bleeding or clotting disorders SOCIAL HISTORY: Alcohol: Denies Tobacco: Denies Drug: Denies REVIEW OF SYSTEMS: complete 10 system ROS performed with pertinent findings below. Pertinent items are noted in HPI. PHYSICAL EXAM: VITALS: There were no vitals filed for this visit. GENERAL: alert, awake and no apparent distress HEAD: Left periorbital hematoma, 2.5 cm laceration over right eyebrow with two sutures in place FACE: Pupils: equal, round, reactive to light, no periorbital ecchymoses; Tympanic Membranes: clear to visualization; Midface: Dried blood in both nares and over midface, no tenderness, no swelling, no contusions, no lacerations and no abrasions over entire face Oropharynx: nonbloody, moist mucous membranes, no lacerations, no malocclusion and no chipped or missing teeth NECK: no tenderness to palpation, trachea midline, no masses, no swelling, no contusions and no abrasions LUNG: equal, clear breath sounds bilaterally and no crepitus CARDIAC: Regular rate and rhythm or without murmur or extra heart sounds ABDOMEN/GI: soft, non-tender, non-distended, no abrasions and no contusions PELVIS: stable to AP and/or lateral compression RECTAL: Sphincter tone normal with no gross blood; Voluntary anal contraction normal EXTREMITIES: normal and symmetric movement, normal range of motion, no joint swelling, 1+ pitting edema of bilateral lower extremities SPINE: no deformity, no stepoffs, no tenderness to palpation and no abrasions over cervical spine, thoracic spine and/or lumbar spine SKIN: Previous skin graft donor site over left anterior thigh, healing. Skin graft site over left ventral forearm, healing. Superficial abrasions over left 3rd and 4th digits dorsal surface, otherwise no lacerations, abrasions or contusions on complete skin exam NEURO: Mental Status: Awake, oriented to person, place Cranial Nerves: CN II - XII intact Motor: normal 5/5 strength in all tested muscle groups Sensory: no sensory deficits noted LABORATORY: Recent Results (from the past 24 hour(s)) Gold Tube HOLD Result Value Ref Range Gold Hold Sample in lab. RADIOLOGY: FAST Scan - negative CXR and XR Pelvis IMPRESSION FINDINGS/IMPRESSION: Chest: Cardiomediastinal contours are magnified. Pulmonary vascular congestion. No focal consolidation. No pleural effusions. No pneumothorax. Bony and soft tissue structures are unremarkable. ?? Pelvis: There is no acute fracture, no dislocation. Mild-moderate eccentric osteoarthritic changes of the bilateral hip joints. Mild degenerative changes of the lower lumbosacral spine. The bilateral sacroiliac joints are intact. Symphysis pubis is intact. Gas pattern of the abdomen is nonobstructing. CT Head 2nd Reads pending Personally reviewed. OSH reads: 1. Subarachnoid hemorrhage in the right frontal lobe and right temporal lobe in multiple locations.Subarachnoid hemorrhage in the right sylvian fissure. Small parenchymal hemorrhages in the right frontal lobe and right temporal lobe. 2. Disruption in the extracalvarial soft tissues laterally on the left may represent lacerations. CT C-Spine 2nd Reads pending Personally reviewed. OSH reads: 1. No acute fracture of the cervical spine 2. No subluxation or dislocation of the cervical spine 3. Intervertebral disc space narrowing C5-C7 may represent degenerative disc disease. Recommend MRIis clinically indicated. Incidental Radiographic Findings: None Procedures Performed: Intubation: No [place]aza Cath: No Central Line: No Chest Tube: No Sutures: No Other: Assessment/Summary of Injuries: 57 y.o. male s/p fall, on aspirin. Injuries identified on primary and secondary survey include: 1. Subarachnoid hemorrhage in the right frontal lobe and right temporal lobe in multiple locations.Subarachnoid hemorrhage in the right sylvian fissure. Small parenchymal hemorrhages in the right frontal lobe and right temporal lobe. 2. Left upper eyebrow laceration Plan: ?? Admit to Trauma Surgery Service in stable condition, Dr. Lawrence Flores MD, attending ?? Renal diet, 2g K restriction ?? IV Fluids: normal saline at 75 mL/hr ?? Consulting Services and plans: 1. Neurosurgery: SAH, q2 neuro checks, SBP < 160 ?? Spine status: Trauma Surgery managing, see precautions as ordered ?? Pain control: Tylenol ?? DVT prophylaxis: Mechanical compression ?? GI prophylaxis: Protonix ?? Tertiary survey in AM ?? [facility] Flores MD 06/02/2018 ADDENDUM: I have independently seen and evaluated the patient. I agree with the assessment and planlisted above with the following additions: Christy Ginna Ambrose is a 57 y.o. male with multiple medical problems including renal transplant graft. 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 He is now status post fall down several steps with retrograde amnesia. Taken to an outside hospital where he was noted to have a large scalp laceration with bleeding and a subarachnoid hemorrhage. Transferred to [facility] for continued care. Primary and secondary surveys documentedabove by Dr. Flores. 1. Admit to trauma surgery service, NISCU status 2. NPO, IVF 3, IV pain control 4. N/S for SAH, frequent neuro monitoring 5. Transplant medicine for medication management 6. Tertiary survey in AM I certify that the patient requires: [x] Inpatient admission meeting the two midnight rule for acute care based on the diagnosis and/or management of subarachnoid hemorrhage. [ ] Obs admission LAWRENCE FLORES MD documented in this encounter ED Notes * Mayra Portillo RN - 06/02/2018 6:01 PM EST Report given to SAVANNA Barreto on NSCU * Erwin Salvador MD - 06/02/2018 4:27 PM EST ED resident trauma note: I was present along with the trauma team at the arrival of this patient who is a trauma alert. On arrival he is speaking in full sentences and protecting his airway. His GCS is 15. He has equal bilateral breath sounds and intact distal and central pulses. He has obvious ecchymosis around his left eye. His pupils are equal round and reactive to light. Fast exam was done and negative in all 4 viewshowever was not recorded. Trauma was available on the patient's arrival and conducted a full primary and secondary exam, please see their notes. They will conduct any additional needed workup and imaging. Labs Reviewed BASIC METABOLIC PANEL (NON-FASTING) - Abnormal; Notable for the following components: Result Value BUN 59 (*) Creatinine 3.11 (*) Potassium 5.5 (*) Chloride 108 (*) CO2 15 (*) Anion Gap 18 (*) Calcium 8.0 (*) eGFR 21 (*) eGFR 25 (*) All other components within normal limits HEMOGRAM - Abnormal; Notable for the following components: RBC 2.77 (*) Hemoglobin 8.6 (*) Hematocrit 26.1 (*) MCV 94.2 (*) Platelets 131 (*) RDWSD 51.0 (*) RDWCV 14.6 (*) All other components within normal limits DIFFERENTIAL, AUTOMATED - Abnormal; Notable for the following components: Lymphocytes Abs 0.6 (*) All other components within normal limits CBC (WITH DIFF) PROTHROMBIN TIME APTT ETHANOL LEVEL REQUEST FOR LACTATE WHOLE BLOOD DRAW ANTIBODY SCREEN GOLD TUBE HOLD L-LACTATE2 WHOLE BLOOD TROPONIN RAPID DRUG SCREEN, URINE (RAUL REQUEST) TYPE AND SCREEN (LEB/CGP) URINALYSIS WITH REFLEX CULTURE ABO/RH TYPING TROPONIN ABORH RECHECK STATUS Patient Vitals for the past 8 hrs: BP Temp Temp src Pulse Resp SpO2 Height 06/02/18 2338 -- 36.5 ??C (97.7 ??F) Tympanic -- -- -- -- 06/02/18 2200 (!) 151/98 36 ??C (96.8 ??F) Tympanic 62 -- 97 % -- 06/02/18 2045 (!) 154/104 -- -- 67 -- 97 % -- 06/02/181999 (!) 157/106 36 ??C (96.8 ??F) Tympanic 60 16 97 % 182.9 cm (6') 06/02/185 (!) 175/117 -- -- -- -- -- -- 06/02/18 1800 (!) 163/97 -- -- 61 17 98 % -- 06/02/18 1745 (!) 151/96 -- -- 57 12 98 % -- 06/02/18 1730 (!) 150/91 -- -- 59 12 98 % -- 06/02/18 1715 155/88 -- -- 62 15 98 % -- 06/02/18 1700 158/90 -- -- 61 18 97 % -- 06/02/18 1645 (!) 171/98 -- -- 62 19 98 % -- Disposition: Admit to trauma Erwin Salvador MD Resident 06/03/18 0037 documented in this encounter Miscellaneous Notes * Plan of Care - Janki Saab RN - 06/04/2018 12:46 PM EST Problem: Skin Integrity Impairment, Risk/Actual (Adult) Goal: Identify Related Risk Factors and Signs and Symptoms Related risk factors and signs and symptoms are identified upon initiation of Human Response Clinical Practice Guideline (CPG) Outcome: Outcome (s) achieved Date Met: 06/04/18 06/04/18 0445 Skin Integrity Impairment, Risk/Actual Skin Integrity Impairment, Risk/Actual: Related Risk Factors cognitive impairment;traumatic injury Goal: Skin Integrity/Wound Healing Patient will demonstrate the desired outcomes by discharge/transition of care. Outcome: Outcome (s) achieved Date Met: 06/04/18 06/04/18 0445 Skin Integrity Impairment, Risk/Actual (Adult) Skin Integrity/Wound Healing making progress toward outcome Problem: Patient Care Overview Goal: Plan of Care Review Outcome: Outcome (s) achieved Date Met: 06/04/18 06/04/18 1003 Coping/Psychosocial Plan Of Care Reviewed With patient;durable power of health care attorney;sibling Goal: Fall Prevention-Safe Patient Handling Outcome: Outcome (s) achieved Date Met: 06/04/18 06/04/18 1003 06/04/18 1100 Toribio Fall Risk History of Falling 25 -- Secondary Diagnosis 15 -- Ambulatory Aids 15 -- Intravenous Therapy/Heparin/Saline Lock 20 -- Gait/Transferring 10 -- Mental Status 0 -- Score 85 -- OTHER Toribio Fall Risk High -- Restraint Interventions Safety Promotion/Fall Prevention safety round/check completed;nonskid shoes/slippers when out of bed;activity supervised -- Positioning Body Position -- independent Activity Activity Type -- ambulated to bathroom Activity Assistance Provided -- assistance, stand-by Assistive Device Utilized -- none Goal: Infection Control Outcome: Outcome (s) achieved Date Met: 06/04/18 06/04/18 1003 Safety Interventions Isolation Precautions standard precautions maintained Infection Prevention rest/sleep promoted;single patient room provided Coping Strategies Supportive Measures self-care encouraged;active listening utilized Goal: Discharge Needs Assessment Outcome: Outcome (s) achieved Date Met: 06/04/18 06/04/18 0445 Discharge Needs Assessment Concerns To Be Addressed no discharge needs identified Readmission Within The Last 30 Days no previous admission in last 30 days Equipment Needed After Discharge cane, straight (cane) Current Discharge Risk physical impairment Discharge Disposition still a patient Activity/Self Care Review of Systems Equipment Currently Used at Home cane, straight Living Environment Transportation Available car;family or friend will provide Goal: Interdisciplinary Rounds/Family Conf Outcome: Outcome (s) achieved Date Met: 06/04/18 OUTCOME EVALUATION NOTE: OUTCOME SUMMARY: Pt alert and oriented x4, forgetful and impulsive. At times the patient was unaware of being in thehospital and he was looking for clothes in his dresser at home. Ultrasound done this am, Left hand with compression glove on. Denies any pain. IV D/C, awaiting discharge. PLAN MOVING FORWARD: Discharge to [facility] with brother. Pt D/C to [facility] with brother and all belongings at 1315. INDIVIDUALIZED FALL PREVENTION INTERVENTIONS: Patient-specific fall risk factors per assessment: [current deficits]: Age, weakness, disease process, pain, impulsivity, unsteadiness Assistance [level of assistance required for transfers and ambulation]: SBA Supervision [direct monitoring required during toileting and ADLs]: Eyes on, arms reach Surveillance [continuous indirect monitoring]: Call daniels in reach, masimo, frequent rounding, bed alarm Patient-specific fall prevention interventions for sensory deficits provided, if applicable: [X] No CPG GOAL OUTCOME EVALUATION: * Plan of Care - Cally Matthew RN - 06/04/2018 4:54 AM EST Problem: Skin Integrity Impairment, Risk/Actual (Adult) Goal: Identify Related Risk Factors and Signs and Symptoms Related risk factors and signs and symptoms are identified upon initiation of Human Response Clinical Practice Guideline (CPG) Outcome: Ongoing (Interventions Implemented as Appropriate) 06/04/18444 Skin Integrity Impairment, Risk/Actual Skin Integrity Impairment, Risk/Actual: Related Risk Factors cognitive impairment;traumatic injury OUTCOME EVALUATION NOTE: OUTCOME SUMMARY: Pt medicated with scheduled meds. Denied pain. Left eyebrow lac dressing dry and intact with periorbital swelling. Compression wrap to LUE. MATEO. Pt oriented to person, intermittently to time, placeand situation. Pt is impulsive to go to BR.bed alarm on at all times.1 standby assist to BR using own cane. Has unsteady gait. Voiding in BR,passing flatus. Vital signs stable. Will continue to monito r. PLAN MOVING FORWARD: -Pain Control -Mobilize -maintain safety plan INDIVIDUALIZED FALL PREVENTION: Assistance: 1 assist with own cane Supervision: - Hands-on for all transfers and ambulation - Eyes-on for all transfers and ambulation - Arms-Reach for all transfers and ambulation Surveillance: - Bed Alarm/Chair Alarm - Purposeful Rounding -Team Care - Bedside Nurse Knowledge Exchange -masimo monitoring CPG OUTCOME EVALUATION: Goal: Skin Integrity/Wound Healing Patient will demonstrate the desired outcomes by discharge/transition of care. Outcome: Ongoing (Interventions Implemented as Appropriate) 06/04/18444 Skin Integrity Impairment, Risk/Actual (Adult) Skin Integrity/Wound Healing making progress toward outcome Problem: Patient Care Overview Goal: Discharge Needs Assessment 06/04/18444 Discharge Needs Assessment Concerns To Be Addressed no discharge needs identified Readmission Within The Last 30 Days no previous admission in last 30 days Equipment Needed After Discharge cane, straight (cane) Current Discharge Risk physical impairment Discharge Disposition still a patient Activity/Self Care Review of Systems Equipment Currently Used at Home cane, straight Living Environment Transportation Available car;family or friend will provide * Initial Assessments - Zoraida Theodore, PT - 06/03/2018 2:45 PM EST Physical Therapy Evaluation Patient Profile: Christy Ambrose is a 57 y.o. y.o. male admitted on 06/02/[address] Lawrence Flores MD s/p ground level fall with the following injuries: Injury Intervention Follow-up Subarachnoid hemorrhage ?? Neurosurgery consult Neurosurgery clinic 4 weeks. Continue home Keppra. No anticoagulation Left eyebrow lac Repaired with suture in trauma bay Trauma clinic for suture removal in 7-10 days ?? Problem List: - Acute pain - Chronic seizure disorder (h/o TBI age 19) - Chronic hypertension - Chronic immunosuppression s/p transplant - Chronic kidney disease PMH: Past Medical History: Diagnosis Date ??? BP (high blood pressure) ??? DVT (deep venous thrombosis) ??? Gout ??? Hypertension ??? Kidney problem ??? Pneumonia ??? TBI (traumatic brain injury) 1979 PSH: Past Surgical History: Procedure Laterality Date ??? CREATED BY INTERFACE Entered not Verified Procedure Date: 09/19/2010 ??? KIDNEY TRANSPLANT KIDNEY TRANSPLANT / RECIPIENT/LT Procedure Date: 11/26/2002 ? ? PRO DEBRIDEMENT SUBCUTANEOUS TISSUE 20 SQCM/< Left 02/20/2016 DEBRIDEMENT SKIN AND SUBCU, HEAD/NECK performed by Miguel Angel Moreno MD at [facility] MAIN OR ??? PRO DECOMPRESS FOREARM, BRACH ART EXPLOR Left 04/06/2018 FASCIOTOMY, FOREARM, WITH BRACHIAL ARTERY EXPLORATION (WRVU 8.41) performed by Lida Peter MDat [facility] MA[facility] OR ??? PRO DIRECT REPAIR RUPTURED ANEURYSM, AXILLO-BRACHIAL ARM INCIS Left 04/06/2018 @REPAIR, RUPTURED AXILLARY OR BRACHIAL ARTERY ANEURYSM BY ARM INCISION (WRVU *) performed by Lida Peter MD at [facility] MAIN OR ??? PRO EXC PAROTD, [...] (WRVU 0.55) performed by Odalis Elias MD [facility] OR ??? PRO REBL VES GRAFT, UP EXTREM Left 04/06/2018 REPAIR BLOOD VESSEL WITH GRAFT OTHER THAN VEIN, UPPER EXTREMITY (WRVU 15.83) performed by Lida Peter MD at [facility] OR ??? PRO RELIEVE [...] (WRVU 4.97) performed by Lida Peter MD [facility] MAIN OR ? ? PRO SPLIT GRFT TRUNK, ARM, LEG <100SQCM Left 04/26/2018 SPLIT THICK SKIN GRAFT,100 SQ CM OR LESS, ARMS (WRVU 9.9) performed by Silviano Sparks MD at [facility] MAIN OR ? ? PRO SPLIT GRFT, HEAD, FAC, HAND, FEET <100SQCM N/A 02/20/2016 SPLIT THICKNESS SKIN SPLIT GRAFT,100SQ CM OR LESS, NECK performed by Miguel Angel Moreno MD at [facility] MAIN OR ??? PRO SPLIT GRFT, TRUNK, ARM, LEG EA 100SQCM N/A 04/26/2018 EA.ADDITIONAL 100SQ.CM STSG (WRVU 1.72) performed by Silviano Sparks MD at [facility] MAIN OR ??? PRO UPPER GI ENDOSCOPY, BIOPSY N/A 05/13/2017 EGD WITH BIOPSY (WRVU 2.49) performed by Aditya Barrera MD at [facility] ENDOSCOPY ??? PRO VASCULAR SURGERY PROCEDURE UNLIST Left 11/20/2015 LIGATION\REPAIR AV FISTULA performed by Camilo Ireland MD at [facility] MAIN OR ??? PRO VASCULAR SURGERY PROCEDURE UNLIST Left 11/20/2015 EXCISION VEIN FROM HAND performed by Camilo Ireland MD at [facility] MAIN OR ??? US RENAL TRANSPLANT BIOPSY 12/31/2010 Social History: Patient had been living with his mother but she is now living in a nursing facilityw/ pt most recently at a [facility] in [place]. Brother reports that pt will be going to [facility] for cont in-pt rehab with hopes to then move into [facility] Assisted living afteward Stairs:unknown Baseline Mobility:amb w/ cane Equipment at home: cane Precautions/Special Considerations: fall, decreased ST memory Subjective: Patient states ???I haven't had falls... I, always use the cane... Pt's brother reportsthat when he gets to [facility] that he will have to manage a flight of stairs to his apartment every day. Objective: Pt seen for initial eval of cognition, functional mobility, gait on level and stairs Cognitive Status: A O X 3, endorses memory issues r/t TBI Vitals: stable Pain: Reports some discomfort in his LUE but tolerable ROM/Strength: functional for mobility, gait Skin and Soft Tissue: LUE with lymphedema garment and in need of assessment and fitting for a full glove/sleeve by a lymphedema specialist Functional Mobility: Supine->sit S only, flat bed Sit->supine D only flat bed Sit->Stand CGA, cane, hand hold Stand->sit S, into recliner Gait: Ambulated 150 ft using standard cane w/ mild ataxia observed but no pathway deviation Pt. to utilize cane and S to ambulate with nursing staff. Stairs: full flight of stairs using L railing descending, R railing ascending, cane in free hand. One step at a time going both directions, CGA 1 Informed Consent: The patient and brother understand and agree to the PT evaluation and recommendations for ongoing short SNF stay prior to assisted living disposition Education: patient educated on Bed mobility, Transfers, Assistive device/technique, Stairs, Safety , Gait , Role of therapy, Balance and Discharge planning and verbalizes and demonstrates understanding. Reviewed DC recommendations w/ brother Patient status, treatment, and mobility recommendations discussed with nursing staff. 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 Pt presents w/functional limitations in memory, balance and ADLfunction and the usual requirement for acceptance to an assisted living facility is indep in mobility and gait. Antcipate that pt will achieve this level of function Goals: (to be achieved by DC to assisted living facility) Pt will understand safety limitations and will request assist as needed Pt will move supine<>sit independently in and OO flat bed Pt will perform transfers indep w/ hand hold or cane Pt will ambulate > 300 feet using cane independently Pt will negotiate 13 stairs using cane and railing independently Plan: Likely DC via car transport w/ brother to SNF ([facility]) tomorrow. Discharge Recommendations: Based on the current findings noted during this evaluation, patient could benefit from Post-acute inpatient facility with Rehab Services when medically ready for hospital discharge. This recommendation is based on the patient's Current physical impairments, Patient motivation, Reported home support, Potential for functional gains, Reported home environment and Anticipated trajectory of progress and may change based on patient progress during this hospitalization. Equipment needs: Has cane/ PT/OT at SNF to determine any additional DME and PT needs for assisted living DC Total treatment time: 44 minutes eval (mod complexity) Total timed treatment: 18 minutes home management ZORAIDA THEODORE, PT Pager: [phone] PT Evaluation Code Rationale: ?? Diagnosis & [...] ml/min N18.4 ??? 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 H/O kidney transplant Z94.0 ??? Weight loss R63.4 ??? Gastrointestinal hemorrhage K92.2 ??? Bradycardia R00.1 ??? Left renal mass N28.89 ??? 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 Surgery follow-up Z09 ??? Subarachnoid hemorrhage I60.9 Additional personal factors or co-morbidities that impact plan: ... ?? Total # of Factors: 0 1-2 3+ x ?? Examination of body system impairments, functional limitations and behaviors, and/or participation restrictions. Addressing 1-2 elements Addressing 3 + elements Addressing 4 + elements x ?? Clinical presentation: See assessment above. Stable/Uncomplicated Evolving/Fluctuating Symptoms Unstable/Unpredictable x ?? Clinical decision making of moderate complexity based on pt's functional performance as outlinedin this evaluation. G-Code: Mobility Status Modifier CURRENT CJ - At least 20 percent but less than 40 percent impaired, limited or restricted PROJECTED CH - 0 percent impaired, limited or restricted DISCHARGE CJ - At least 20 percent but less than 40 percent impaired, limited or restricted G Code Rationale: This G-Code and these disability modifiers were selected as the primary therapy goal based upon the patient's evaluation including the following functional test(s) AM-PAC - ActivityMeasure for Post-Acute Care. Current ability measures, co-morbidities and clinical judgement were also used to select the disability modifier. This Patient's current G-Code functional level is 20 % impaired [facility] AM-PAC 6 Clicks/stairs Basic Mobility Inpatient Short Form How much difficulty does the patient currently have... Unable (1) A Lot (2) A Little (3) None (4) 1. Turning over in bed (including adjusting bedclothes, sheets and blankets)? x 2. Sitting down on and standing up from a chair with arms (e.g., wheelchair, bedside commode, etc.)? x 3. Moving from lying on back to sitting on the side of the bed? x How much help from another person does the patient currently need... Total (1) A Lot (2) A Little (3) None (4) 4. Moving to and from a bed to a chair (including a wheelchair)? x 5. Need to walk in hospital room? x 6. Climbing 3-5 steps with a railing? x Raw Score: 20 Standardized Score: 42.03 CMS 0-100% Score: 38.32 CMS Modifier: CJ * Plan of Care - Evelyne Gaytan OT - 06/03/2018 2:44 PM EST Occupational Therapy Evaluation Pertinent History of Current Problem: Christy Ambrose is a 57 y.o. 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 Patient has been followed by Dr. Hawkins and transplant medicine as recently . Patient had recently been hospitalized s/p hemorrhagic shock from AV fistula bleed that required faciotomy and skin graft. Patient's brother reports, patient walked up a few stairs and was witnessed to have a ground level fall onto a flat landing and that the fall appeared mechanical. No seizure activity was noted by bystander or patient's brother. Patient is not able to recall the events.Patient suffered a left forehead laceration and was found to have a SAH at outside hospital and wastransfer[facility]. Precautions/Restrictions: fall Precautions Comments: activity as tolerated Assessment: Pt has been seen for occupational therapy evaluation, please refer to associated flowsheet data listed below for details. Christy Ambrose presents with the following performance skill deficits and client factors: impaired balance, impaired coordination, decreased strength, pain, edema, decreased sensation LUE, and confusion. These performance deficits have led to activity limitations and participation restrictions in the following areas of occupation: dressing, bathing, grooming, toileting, mobility, transfers, home management, roles/routines, leisure, community mobility, communication, and social participation. Pt was pleasant, cooperative and motivated for independence. Pt was confused regarding situation but was able to follow single step instructions without issue. Pt is requiring CGA to min assist with ADLs secondary to deficits listed above and will need to be conditionally independent for transition to [facility]. Anticipate Pt will require a short inpatient rehab stay when medically ready for discharge. Pt is using a compression sleeve for LUE and was unfamiliar with his wearing schedule when asked about it. Pt's brother requested that Pt be fitted for a glove with a full sleeve which could not be issued from the inpatient hospital setting.Pt is planned for discharge within 24 hours and was encouraged to continue with plans for outpatient lymphedema treatment. Pt would benefit from further inpatient OT interventions to address performance deficits and maximize participation and independence with occupations of daily living. Staff Recommendations: Encourage OOB activity and participation in all self care tasks. Anticipated Discharge Disposition: inpatient rehabilitation facility Pager: [phone] Evelyne Gaytan OT 06/03/2018 Occupational Therapy Rehabilitation Department 06/03/18 3274 Rehab Evaluation Document Type evaluation Total Evaluation Minutes, Occupational Therapy 46 Patient Effort good Symptoms Noted During/After Treatment increased pain General Information Patient Profile Review yes Patient/Family/Caregiver Comments/Observations Pt stated I think I was here when asked about the fall leading to his injury. General Observations of Patient Pt was awake in bed and was willing to participate. Pertinent History of Current Problem Christy Ambrose is a 57 y.o. 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 Patient has been followed by Dr. Hawkins and transplant medicine as recently as 05/25. Patient had recently been hospitalized s/p hemorrhagic shock from AV fistula bleed that required faciotomy and skin graft. Patient's brother reports, patient walked up a few stairs and was witnessed to have a ground level fall onto a flat landing and that the fall appeared mechanical. No seizure activity was noted by bystander or patient's brother. Patient is not able to recall the events. P atient suffered a left forehead laceration and was found to have a SAH at outside hospital and was transferred to [facility]. Hearing Precautions/Limitations WFL Precautions/Restrictions fall Precautions Comments activity as tolerated Limitations/Impairments safety/cognitive;sensory Treatment Number OT 1 Living Environment Patient population Adult Living Environment Living Environment Comment Pt was at a rehab facility prior to admission. He will be moving to [facility] next week. Functional Level Prior Prior Functional Level Comment Pt was at a rehab facility prior to admission. Pt reported he was independent with ADLs and was using a cane for functional mobility at baseline.. Self-Care Dominant Hand right Vital Signs Heart Rate 72 BP (!) 135/97 SpO2 97 % O2 Device RA Cognitive Assessment Interventions Behavior/Mood Observations (Cognitive) alert;cooperative;confused Orientation Status (Cognitive) oriented to;person;place Attention (Cognitive) distractible;difficult dividing attention Follows Commands/Answers Questions (Cognitive) able to follow single-step instructions;needs cueing Pain Scale/Rating Pain Assessment Scale Numbers (Numeric Rating Pain Scale) Pain Level 3 (LUE) Bed Mobility Assessment/Treatment Tlxctk-iv-Uym [place] (Bed Mobility) independent Impairments (Bed Mobility) pain Lad-qo-Ovsymf [place] (Bed Mobility) independent Transfer Assessment/Treatment Bed-Chair [place] (Transfers) supervision required Chair-Bed [place] (Transfers) supervision required Ikf-Khcjv-Vir Assistive Device (Transfers) straight cane [place] (Sit-Stand Transfers) supervision required [place] (Stand-Sit Transfers) supervision required Fug-Mgjtn-Whv Assistive Device (Transfers) straight cane Impairments (Transfers) balance impaired;coordination impaired;pain;ROM (range of motion) decreased;strength decreased Gait Assessment/Treatment [place] (Gait) contact guard assist Assistive Device (Gait) straight cane Distance in Feet (Gait) 150 Impairments (Gait) balance impaired;coordination impaired;strength decreased Upper Body Dressing Assessment/Training Comment (UB Dressing) Pt was not aware of how long he had been wearing his compression sleeve. Pt'sbrother stated he was to remove the sleeve for sleeping and after several hours of wearing it throughout the day. Lower Body Dressing Assessment/Training Position (LB Dressing) sitting;standing [place] Level (LB Dressing) minimum assist (75% patient effort) Impairments (LB Dressing) balance impaired;coordination impaired;ROM (range of motion) decreased;sensation decreased Plan of Care Review Plan Of Care Reviewed With patient Occupational Therapy Goal Types Occupational Therapy Goal Types Grooming Goal (Group);Toileting Goal (Group);LB Dressing Goal (Group);Occupational Therapy Goal (Group) Grooming Goal Grooming Goal, Date Established 06/03/18 Grooming Goal, Time to Achieve 2 wks Grooming Goal, Activity Type Pt will perform 2 grooming tasks standing at sink at conditional independence. Grooming Goal, Outcome goal ongoing Toileting Goal Toileting Goal, Date Established 06/03/18 Toileting Goal, Time to Achieve 2 wks Toileting Goal, Activity Type Pt will complete toileting routine including transfer at conditional independence. Toileting Goal, Outcome goal ongoing LB Dressing Goal LB Dressing Goal, Date Established 06/03/18 LB Dressing Goal, Time to Achieve 2 wks LB Dressing Goal, Activity Type Pt will compete LB dressing tasks at conditional independence. LB Dressing Goal, Outcome goal ongoing Occupational Therapy Goal OT Goal, Date Established 06/03/18 OT Goal, Time to Achieve 2 wks OT Goal, Activity Type Pt will verbalize/demonstrated adherence to compression sleeve/glove wearingscheduled to reduce LUE edema. OT Goal, Outcome goal ongoing Clinical Impression Criteria for Skilled Therapeutic Interventions Met yes;treatment indicated Therapy Frequency 2-4 times/wk Anticipated Equipment Needs at Discharge other (see comments) (TBD) Anticipated Discharge Disposition inpatient rehabilitation facility General Therapy Interventions Additional Documentation Planned Therapy Interventions (Group) Planned Therapy Interventions ADL retraining;balance training;neuromuscular re- education;ROM (rangeof motion);strengthening;transfer training 2016 OT Evaluation Code Rationale: ?? Diagnosis & Pertinent Co-Morbidities affecting Plan of Care: see PMHx ?? Occupational Profile & Client History: Brief Expanded Extensive X ?? Assessment of Occupational Performance: 1-3 performance deficits 3-5 performance deficits 5 + performance deficits X ?? Clinical Decision Making: Low Moderate High X Clinical decision making of high complexity using standardized patient assessment instrument and measurable assessment of functional outcome. * Plan of Care - Camryn Elena - 06/03/2018 2:06 PM EST Problem: Skin Integrity Impairment, Risk/Actual (Adult) Goal: Identify Related Risk Factors and Signs and Symptoms Related risk factors and signs and symptoms are identified upon initiation of Human Response Clinical Practice Guideline (CPG) Outcome: Ongoing (Interventions Implemented as Appropriate) OUTCOME EVALUATION NOTE: OUTCOME SUMMARY: Pt is A/Ox4 with clear speech. L orbital swelling, PERLAA 3mm. Some forgetfulness, some impulsivity. Alarmed appropriately. Spine cleared by trauma, collar removed. Pt up to chair. Voiding continently in urinal. Lungs CTA, NSR, no CP/SOB, VSS. Order received to transfer pt. Report given to SAVANNA Nelson [address] [place]. All questions answered. PLAN MOVING FORWARD: Move to floor INDIVIDUALIZED FALL PREVENTION INTERVENTIONS: Patient-specific fall risk factors per assessment: [current deficits]: Recent AMS and IPH Assistance [level of assistance required for transfers and ambulation]: 1 assist Supervision [direct monitoring required during toileting and ADLs]: Hands on Surveillance [continuous indirect monitoring]: telemetry, pulse ox, call daniels within reach, hourly rounding, bed and chair alarm Patient-specific fall prevention interventions for sensory deficits provided, if applicable: [X] Yes CPG GOAL OUTCOME EVALUATION: Safety maintained * Consult Note - Nichole Rodríguez MD - 06/03/2018 11:11 AM EST HYPERTENSION/ NEPHROLOGY CONSULT PATIENT: Christy Ambrose : 1960 REASON FOR CONSULTATION: Referred for evaluation and management of transplant. 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 He fell down a few steps during this admission ,with bleeding which is controlled on scene with direct pressure. Brought to [facility] where heavy venous bleeding was noted from head laceration, controlled with two sutures and pressure dressing. Altered mental status noted at OSH, reportedly waxing and waning. CT head at OSH demonstrated subarachnoid hemorrhage. Patient reported to OSH that he is on coumadin. His INR at OSH was 1.0. A cervical collar was applied and the patient was transferred to [facility] for further management.Nephrology was consulted for further evaluation and management transplant .He denied any nausea or increased swellings or change in UOP or blood in urine or pain at transplant sight. Past Medical History: Diagnosis Date ??? BP [...] performed by Miguel Angel Moreno MD at [facility] MAIN OR ??? PRO DECOMPRESS FOREARM, BRACH ART EXPLOR Left 04/06/2018 FASCIOTOMY, FOREARM, WITH BRACHIAL ARTERY EXPLORATION (WRVU 8.41) performed by Lida Peter, MDat [facility] ??? PRO DIRECT REPAIR RUPTURED ANEURYSM, AXILLO-BRACHIAL ARM INCIS Left 04/06/2018 @REPAIR, RUPTURED AXILLARY OR BRACHIAL ARTERY ANEURYSM BY ARM INCISION (WRVU *) performed by Lida Peter MD at [facility] MAIN OR ??? PRO EXC PAROTD, TOTAL, UNILAT RAD NECK Left 02/05/2016 @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, TOTAL, WITH UNILATERAL RADICAL NECK DISSECTION performed by Miguel Angel Moreno MD at [facility] MAIN OR ??? PRO EXC SKIN MALIG 3.1-4CM FACE, FACIAL Left 02/05/2016 EXC MALIGNANT LESION, 3.1 TO 4.0CM, FACE performed by Miguel Angel Moreno MD at [facility] MAIN OR ? ? PRO EXC [...] 6.25) performed by Odalis Elias MD at [facility] MAIN OR ??? PRO NEGATIVE PRESSURE WOUND THERAPY, LESS THAN OR EQUAL TO 50 SQCM Left 04/19/2018 DRESSING CHANGE (VAC ASSISTED) UP TO 50SQ.CM (WRVU 0.55) performed by Odalis Elias MD [facility] MAIN OR ??? PRO REBL VES GRAFT, UP EXTREM Left 04/06/2018 REPAIR BLOOD VESSEL WITH GRAFT OTHER THAN VEIN, UPPER EXTREMITY (WRVU 15.83) performed by Lida Peter MD at [facility] MAIN OR ??? PRO RELIEVE PRESSURE ON NERVE(S) Left 04/06/2018 (MSURG) CARPAL TUNNEL (WRVU 4.82) performed by Silviano Sparks MD at [facility] MAIN OR ??? PRO REPAIR INTERMEDIATE S/A/T/E 2.6-7.5 CM 04/19/2012 REPAIR INTERMEDIATE WOUND, (NO HANDS OR FEET) 2.6 TO 7.5CM, UPPER EXTREMITY performed by SABRINA SANCHEZ at [facility] MAIN OR ? ? PRO REPAIR INTERMEDIATE S/A/T/E > 30.0 CM Left 04/14/2018 REPAIR INTERMEDIATE WOUND, (NO HANDS OR FEET) >30.0CM, UPPER EXTREMITY (WRVU 5) performed by Yimi Easton MD at [facility] MAIN OR ??? PRO REVISE MEDIAN N/CARPAL TUNNEL SURG Left 04/06/2018 MEDIAN NERVE DECOMPRESSION (CARPAL TUNNEL RELEASE) (WRVU 4.97) performed by Lida Peter MD [facility] MAIN OR ? ? PRO SPLIT GRFT TRUNK, ARM, LEG <100SQCM Left 04/26/2018 SPLIT THICK SKIN GRAFT,100 SQ CM OR LESS, ARMS (WRVU 9.9) performed by Silviano Sparks MD at [facility] MAIN OR ? ? PRO SPLIT GRFT, HEAD, FAC, HAND, FEET <100SQCM N/A 02/20/2016 SPLIT THICKNESS SKIN SPLIT GRAFT,100SQ CM OR LESS, NECK performed by Miguel Angel Moreno MD at [facility] MAIN OR ??? PRO SPLIT GRFT, TRUNK, ARM, LEG EA 100SQCM N/A 04/26/2018 EA.ADDITIONAL 100SQ.CM STSG (WRVU 1.72) performed by Silviano Sparks MD at [facility] MAIN OR ??? PRO UPPER GI ENDOSCOPY, BIOPSY N/A 05/13/2017 EGD WITH BIOPSY (WRVU 2.49) performed by Aditya Barrera MD at [facility] ENDOSCOPY ??? PRO VASCULAR SURGERY PROCEDURE UNLIST Left 11/20/2015 LIGATION\REPAIR AV FISTULA performed by Camilo Ireland MD at [facility] MAIN OR ??? PRO VASCULAR SURGERY PROCEDURE UNLIST Left 11/20/2015 EXCISION VEIN FROM HAND performed by Camilo Ireland MD at [facility] MAIN OR ??? US RENAL TRANSPLANT BIOPSY 12/31/2010 Family History Problem Relation Age of Onset ??? Pancreatitis Father Social History Social History Narrative Not on file Outpatient medications: No current facility-administered medications on file prior to encounter. Current Outpatient Medications on File Prior to Encounter Medication Sig Dispense Refill ??? levETIRAcetam (KEPPRA) 500 mg Tablet Take 500 mg by mouth 2 times daily. Take 500 mg every morning and 250 mg every morning. ??? aspirin 81 mg Tablet, Delayed Release (E.C.) Take 81 mg by mouth daily. ??? amLODIPine (NORVASC) 2.5 mg Tablet Take 2.5 mg by mouth daily. ??? senna-docusate (PERICOLACE) 8.6-50 mg Tablet Take 2 tablets by mouth 2 times daily. 60 tablet 11 ??? tacrolimus (PROGRAF) 1 mg Capsule Take 1 capsule by mouth nightly. ??? tacrolimus (PROGRAF) 0.5 mg Capsule Take 3 capsules by mouth daily. ??? acetaminophen (TYLENOL) 500 mg Tablet Take 2 tablets by mouth every 6 hours. 30 tablet 1 ??? hydrALAZINE (APRESOLINE) 50 mg Tablet Take 1 tablet by mouth 3 times daily. ??? losartan (COZAAR) 50 mg Tablet Take 1 tablet by mouth every morning. 90 tablet 3 ??? metoprolol tartrate (LOPRESSOR) 50 mg Tablet Take 1 tablet by mouth 3 times daily. ??? cholecalciferol, Vitamin D3, 50,000 unit Capsule Take 1 capsule by mouth once a week. 12 capsule 3 ??? allopurinol (ZYLOPRIM) 100 mg Tablet Take 1 and 1/2 tablet daily. 45 tablet 11 ??? pantoprazole (PROTONIX) 20 mg Tablet, Delayed Release (E.C.) Take 1 tablet by mouth 2 times daily. 180 tablet 3 ??? sodium bicarbonate 650 mg Tablet Take 1 tablet by mouth 3 times daily. 270 tablet 3 ??? docusate sodium (COLACE) 100 mg Capsule Take 1 capsule by mouth 2 times daily as needed for Constipation. ??? dilTIAZem (CARTIA XT) 120 mg Capsule, Sust. Release 24 hr Take 1 capsule by mouth daily. 90 capsule 3 ??? mycophenolate (CELLCEPT) 250 mg Capsule Take 1 capsule by mouth 2 times daily. Kidney Transplant Z94.0. Transplant Date; 11-26-02 180 capsule 11 ??? multivitamin Capsule Take 1 capsule by mouth daily. ??? levothyroxine (SYNTHROID) 100 mcg Tablet Take 100 mcg by mouth daily. MEDICATIONS: ??? cephALEXin 500 mg Oral BID ??? acetaminophen 1,000 mg Oral Q6H ??? allopurinol 150 mg Oral Daily ??? hydrALAZINE 50 mg Oral TID ??? levothyroxine 100 mcg Oral Daily ??? losartan 50 mg Oral QAM ??? amLODIPine 2.5 mg Oral Daily ??? metoprolol tartrate 50 mg Oral TID ??? mycophenolate 250 mg Oral BID ??? senna-docusate 2 tablet Oral BID ??? sodium bicarbonate 650 mg Oral TID ??? tacrolimus 1.5 mg Oral Daily ??? tacrolimus 1 mg Oral Nightly ??? sodium chloride 0.9 % 5 mL Intravenous BID ??? famotidine 20 mg Oral BID Or ??? famotidine 20 mg Intravenous BID ??? pantoprazole 40 mg Intravenous Daily ??? dilTIAZem 30 mg Oral Q6H EDWARD ??? levETIRAcetam 500 mg Oral BID Allergies Allergen Reactions ??? Benazepril Hcl ??? Codeine Other (See Comments) Patient does not know reaction ??? Hydrochlorothiazide ??? Pollen Extracts Sneezing/runny nose ROS: Constitutional - No fevers, chills, weight loss Skin - No rash or itchy skin HEENT - No headaches, have left eye bruising and swelling Resp - No cough, shortness of breath CV - No chest pain,no leg swelling,no difficulty breathing lying flat GI - No nausea, vomiting,change in bowel habits/abdominal pain - No change in urine output. No pain urinating or blood in urine. Neuro - No weakness. No numbness/ tingling in extremities. PHYSICAL EXAM: Last value Range last 24 hrs Temperature Temp: 36 ??C (96.8 ??F) Temp: [36 ??C (96.8 ??F)-36.5 ??C (97.7 ??F)] Heart Rate Heart Rate: 54 Heart Rate: [54-67] Blood Pressure BP: 129/87 BP: (129-175)/(81-117) Respiratory Rate Resp: 16 Resp: [12-19] SpO2 SpO2: 97 % SpO2: [97 %-98 %] Appearance - Alert,lying in bed Skin -have black left eye with swelling . HEENT - Sclera with redness in left eye, Mucous membranes moist. Chest: . Lungs clear to ausculatation w/o wheezes/ rhonchi/ crackles. Heart - S1 and S2 clear w/o murmur, gallop, or rub. JVP not elevated. Abd - Soft. + BS. No bruit. Non tender. Ext - Left hand is swollen with crepe bandage Warm. No cyanosis. Trace dependant edema. Neuro - No asterixis. STUDIES: Labs: CBC: Recent Labs 06/03/18 0606/02/18 16105/25/18 0830 WBC 4.8 6.1 4.4 HGB 7.9* 8.6* 9.3* PLATELET 119* 131* 190 Chemistry: Recent Labs 06/03/18 0631 06/02/18 1612 05/25/18 0830 NA 140 141 142 K 5.1* 5.5* 5.3* CL 111* 108* 109* CO2 14* 15* 18* BUN 57* 59* 48* CREATININE 3.27* 3.11* 3.08* GLUCOSE 101 117 97 Recent Labs 06/03/18 0631 06/02/18 1612 05/25/18 0830 04/06/18 1740 09/23/17 1101 CALCIUM 7.6* 8.0* 8.4* < > 6.7* < > 8.4* MAGNESIUM -- -- 0.86 -- 0.60* -- 0.76 PHOS -- -- 5.6* -- 3.3 -- 3.9 < > = values in this interval not displayed. 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 ESRD s/p DDTXP: - S/p DDTXP in 2002 with post transplant course complicated by delayed graft function,recurrence ofIgA and prograf toxicity been stable with CKD IV with baseline creatinine -2.3 -2.6 .He also had laparoscopic left southern ute nephrectomy due to papillary renal cell ca in may-2017. - ESRD sec to IgA nephropathy. - Have gradual uptrend in creatinine since last admission and current creatinine is 3.27. - Also have nephrotic range proteinuria for which his losartan dose was increased . - His worsening creatinine might be due to progression of CTG vs tacrolimus toxicity vs recent dosechange of ARB vs recent use of nephrotoxic medications like vancomycin. - Consider checking trough levels of tacrolimus(should be 1 hr prior to morning dose )and need adjustment based on the levels. - Check US to evaluate for obstruction . - Consider increasing bicarb dose to 1300 TID. - No acute indication for CORRECTIONAL SUPERVISING COOK like hyperkalemia or fluid overload or metabolic acidosis that can not be corrected by medical management. - Avoid nephrotoxins,renally dose medications and monitor Is and Os closely. Anemia: Mild drop in crit due to acute bleed ,monitor CBC and consider anemia work up. Hypertension: Blood pressures are not well controlled ,currently on Amlodpine ,Hydralazine ,Losartan,diltiazem and Metoprolol.will monitor closely and made adjustments. Thanks for letting us participate in the care of this patient. Seen and Discussed w/ Dr. Beevrly Rodríguez MD Nephrology Fellow #[id number] Associated attestation - Bashir Paul MD - 06/03/2018 4:51 PM EST I saw and assessed the patient with and agree with the assessment and plan in her note. Patient status post transplant with now advanced CKD presents with brain bleed. Creatinine is just slightly up from levels drawn approximately 2 weeks ago in the outpatient setting. At that time his ARB was increased due to increasing proteinuria. His increasing creatinine is consistent with this akira nge. We will continue to monitor his kidney function while he is in house. We will continue his immunosuppression without changes currently. Of note his last clinical tacrolimus level was supratherapeutic at 16. We will monitor his levels while in house with true trough and make adjustments as needed. * Initial Assessments - Natalya Wan MSW - 06/03/2018 9:39 AM EST Office of Care Management Initial Assessment JIMENA Duran reviewed record and discussed patient with Care Team. Source of Information: Patient, Chart, Treatment Team, DPOA Lucas Introduced self/reviewed role; services accepted. Reason for Hospitalization: CT head at OSH demonstrated subarachnoid hemorrhage. Patient fell down a few steps, onto left head.Patient unable to recall events Past Medical History: Diagnosis Date ??? BP (high blood pressure) ??? DVT (deep venous thrombosis) ??? Gout ??? Hypertension ??? Kidney problem ??? Pneumonia ??? TBI (traumatic brain injury) 1979 Patient has a history of TBI at age of 19. He has capacity to understand, answer and engage in conversation but noted to take a moment to think of responses. Hospitalizations Within the Past 30 Days: DC 05/04 Anticipated Length Of Stay (If known): 2-4 days Current Decision-Making Capacity: Alert and oriented to person, place but confused. Advance Care Planning: Adv. Directives are from 2010, pt's POA is brother Lucas Ambrose who resides in [facility], patient's 86 year old mother Ilda is listed as second POA. Current Coping/Education/Information Needs: confused but alert to hospitalization Current Functional Ability: TBD Functional Status Prior to Admission : Independent Home Environment: Patient has [facility] at [facility] and [facility] and expects to live in [facility]/assisted living facility Social & Family Supports/Community Resources: Mother, brother Behavioral Health History: denies, per mother. Substance Use/Abuse: denies. Alcohol: Denies Tobacco: Denies Drug: Denies Health/Prescription Coverage: Primary Insurance: MEDICAID [place] Secondary Insurance: N/A Prescription Coverage: yes Preferred Pharmacy: [facility] in [place], [place]. Primary Care Provider: Sebastian Garcia DO [phone] Patient/Caregiver Goals of Treatment: Potential Needs for Transition of Care: Rehab/SNF: NA Home Health: NA DME: NA Dialysis: not in recent past recently admitted to 04/06-05/04/18 for hemorrhagic shock after being found down in a pool of blood after exsanguinating from his AV fistula. Community Resources: denies Transportation: Brother or ambulance Anticipated Barriers to Discharge/Special Considerations: Uncertain path- likely DC to SNF/rehab and then assisted living Assessment: ASSESSMENT: Christy Ginna Ambrose is a 57 y.o. 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 Open wounds of the forearm and hand appear clean with no drainage or surrounding erythema. The patient has a palpable radial pulse. Patient planned for OR today for closure of LUE fasciotomies. Patient at this point appears much improved. We will continue with daily dressing changes. ?? PLAN: 57 y.o. male presents to [facility] s/p fall on aspirin. Description of events leading up to injury includes patient fell down a few steps, onto left head. Patient unable to recall events. Bleeding noted from left head, controlled on scene with direct pressure. Brought to [facility] where heavy venous bleeding was noted from head laceration, controlled with two sutures and pressure dressing. Altered mental status noted at OSH, eportedly waxing and waning. CT head at OSH demonstrated subarachnoid hemorrhage. Patient reported to OSH that he is on coumadin. His INR at OSH was 1.0. A cervical collar was applied and the patient was transferred to [facility]. Plan: Likely DC to assisted living facility with follow up. A member of the Care Management team will continue to monitor progress, follow for continuity of care and assist with transition of care planning. JIMENA Duran Pager: [phone] * Consult Note - Sabrina Richter MD - 06/02/2018 5:08 PM EST Neurosurgery H&P / Consultation CC: [facility] s/p seizure and fall HPI: Asked by Lawrence Flores MD to see Christy Ginna Arnol, a 57 y.o. male with PMH significant for renal transplant, DVT, HTN, epilepsy on Keppra regarding evaluation and management of tSAH s/p likely seizure and fall. Medical History: Past Medical History: Diagnosis Date ??? BP (high blood pressure) ??? DVT (deep venous thrombosis) ??? Gout ??? Hypertension ??? Kidney problem ??? Pneumonia ??? TBI (traumatic brain injury) 1980 Surgical History: Past Surgical History: Procedure Laterality Date ??? CREATED BY INTERFACE Entered not Verified Procedure Date: 09/19/2010 ??? KIDNEY TRANSPLANT KIDNEY TRANSPLANT / RECIPIENT/LT Procedure Date: 11/26/2002 ? ? PRO DEBRIDEMENT SUBCUTANEOUS TISSUE 20 SQCM/< Left 02/20/2016 DEBRIDEMENT SKIN AND SUBCU, HEAD/NECK performed by Miguel Angel Moreno MD at [facility] OR ??? PRO DECOMPRESS FOREARM, BRACH ART EXPLOR Left 04/06/2018 FASCIOTOMY, FOREARM, WITH BRACHIAL ARTERY EXPLORATION (WRVU 8.41) performed by Lida Peter MDat [facility] OR ??? PRO [...] 6.25) performed by Odalis Elias MD at [facility] MAIN OR ??? PRO NEGATIVE PRESSURE WOUND THERAPY, LESS THAN OR EQUAL TO 50 SQCM Left 04/19/2018 DRESSING CHANGE (VAC ASSISTED) UP TO 50SQ.CM (WRVU 0.55) performed by Odalis Elias MD [facility] MAIN OR ??? PRO REBL VES GRAFT, UP EXTREM Left 04/06/2018 REPAIR BLOOD VESSEL WITH GRAFT OTHER THAN VEIN, UPPER EXTREMITY (WRVU 15.83) performed by Lida Peter MD at [facility] MAIN OR ??? PRO RELIEVE PRESSURE ON NERVE(S) Left 04/06/2018 (MSURG) CARPAL TUNNEL (WRVU 4.82) performed by Silviano Sparks MD at [facility] MAIN OR ??? PRO REPAIR INTERMEDIATE S/A/T/E 2.6-7.5 CM 04/19/2012 REPAIR INTERMEDIATE WOUND, (NO HANDS OR FEET) 2.6 TO 7.5CM, UPPER EXTREMITY performed by SABRINA SANCHEZ at [facility] MAIN OR ? ? PRO REPAIR INTERMEDIATE S/A/T/E > 30.0 CM Left 04/14/2018 REPAIR INTERMEDIATE WOUND, (NO HANDS OR FEET) >30.0CM, UPPER EXTREMITY (WRVU 5) performed by Yimi Easton MD at [facility] MAIN OR ??? PRO REVISE MEDIAN N/CARPAL TUNNEL SURG Left 04/06/2018 MEDIAN NERVE DECOMPRESSION (CARPAL TUNNEL RELEASE) (WRVU 4.97) performed by Lida Peter MD [facility] MAIN OR ? ? PRO SPLIT GRFT TRUNK, ARM, LEG <100SQCM Left 04/26/2018 SPLIT THICK SKIN GRAFT,100 SQ CM OR LESS, ARMS (WRVU 9.9) performed by Silviano Sparks MD at [facility] MAIN OR ? ? PRO SPLIT GRFT, HEAD, FAC, HAND, FEET <100SQCM N/A 02/20/2016 SPLIT THICKNESS SKIN SPLIT GRAFT,100SQ CM OR LESS, NECK performed by Miguel Angel Moreno MD at [facility] MAIN OR ??? PRO SPLIT GRFT, TRUNK, ARM, LEG EA 100SQCM N/A 04/26/2018 EA.ADDITIONAL 100SQ.CM STSG (WRVU 1.72) performed by Silviano Sparks MD at [facility] MAIN OR ??? PRO UPPER GI ENDOSCOPY, BIOPSY N/A 05/13/2017 EGD WITH BIOPSY (WRVU 2.49) performed by Aditya Barrera MD at [facility] ENDOSCOPY ??? PRO VASCULAR SURGERY PROCEDURE UNLIST Left 11/20/2015 LIGATION\REPAIR AV FISTULA performed by Camilo Ireland MD at [facility] MAIN OR ??? PRO VASCULAR SURGERY PROCEDURE UNLIST Left 11/20/2015 EXCISION VEIN FROM HAND performed by Camilo Ireland MD at [facility] MAIN OR ??? US RENAL TRANSPLANT BIOPSY 12/31/2010 Medications: (Not in a hospital admission) Allergies: Allergies Allergen Reactions ??? Benazepril Hcl ??? Codeine Other (See Comments) Patient does not know reaction ??? Hydrochlorothiazide ??? Pollen Extracts Sneezing/runny nose Family History: Family History Problem Relation Age of Onset ??? Pancreatitis Father Social History: Social History Tobacco Use ??? Smoking status: Former Smoker Packs/day: 0.25 Years: 1.50 Pack years: 0.37 Types: Cigarettes Last attempt to quit: 12/03/2000 Years since quittin.5 ??? Smokeless tobacco: Former User Quit date: 04/14/2001 Substance Use Topics ??? Alcohol use: No ??? Drug use: No Comment: havent in years/1995 Review of Systems: Review of Systems Neurological: Positive for seizures and headaches. All 12 systems otherwise negative. Physical Exam: Vital Signs: No data found. BMI: -Gen: NAD. Lying flat, full spine precautions -HEENT: Cervical collar. ATNC. No perimastoid or periorbital bruising. No rhinorrhea or otorrhea. -CV: RR. -Resp: Breathing non-labored. -Neuro: Mental Status/Cognitive: Awake, alert, oriented x 3. GCS 15 (Motor 6 - Follows commands; Verbal 5 - Fluent; Eyes 4 - Eyes open spontaneously) Speech: Fluent, appropriate. Naming and repetition intact. Cranial Nerves: PERRL CN II: Visual acuity and cohen grossly intact CN III, IV, : EOMI CN V: Sensation intact in V1, 2 and 3 distributions CN VII: No facial asymmetry/droop CN VIII: Intact hearing bilaterally to voice CN IX, X: Palate and uvula midline CN XI: Trapezius strength 5/5 bilaterally CN XII: Tongue midline Tone: Normal Motor: No pronator drift *Pain limited on exam Segment Muscle Action Right Left C5 Deltoid Shoulder Abduction 5 5 C6 [...] 5 S1 Gastrocnemius Plantar flexion 5 5 Reflexes: Reflex Right Left Biceps 2+ 2+ Triceps 2+ 2+ BR 2+ 2+ Patellar 2+ 2+ Ankle Jerk 1+ 1+ Plantar response Downgoing Downgoing Gait: Not assessed Sensation: Light touch: Intact x 4 Cerebellar: No dysmetria or dysdiadochokinesia No intention tremor Labs: Recent Labs 06/02/18 1612 NA 141 K 5.5* CL 108* CO2 15* BUN 59* CREATININE 3.11* GLUCOSE 117 Recent Labs 06/02/18 1612 WBC 6.1 HGB 8.6* PLATELET 131* Recent Labs 06/02/18 1612 PT 10.9 INR 1.0 No results for input(s): AST, ALT, BILITOT, ALKPHOS, ALB, PROT, LIPASE, AMYLASE in the last 72 hours. Radiology: Head CT 06/02/2018: Focus of subarachnoid hemorrhage in the right frontal and temporal lobes, and extending to the right sylvian fissure. There is a small right parenchymal hemorrhage in the frontal lobe. No skull fracture. C Spine CT: No acute C-spine fracture or malalignment. Films personally reviewed / reviewed with radiologist Impression: Christy Ambrose is a 57 y.o. male with traumatic subarachnoid hemorrhage s/p fall. He hasa non-focal neurological exam. There are no indications for urgent or emergent neurosurgical intervention. Will monitor closely, and obtain repeat imaging. Problem List: Renal transplant Seizure Traumatic subarachnoid hemorrhage Encephalopathy Hypertension Plan: - Admit per Trauma - Neuro checks: q2h - Spine precautions: Per spine service - Seizure prophylaxis: Keppra 1g IV load; 500mg BID maintenance for 7 days - Imaging: CT head wo in AM - goal SBP < 160 - anti-HTN: hydralazine, labetalol, nicardipine gtt PRN - DVT prophylaxis: SCDs - hold anticoagulation and antiplatelet Will staff with Dr. Torres. There are no hospital problems to display for this patient. Active Non-Hospital Problems Diagnosis ??? Surgery follow-up ??? Primary papillary carcinoma of left kidney ??? Gastrointestinal hemorrhage ??? Bradycardia ??? Left renal mass ??? Weight loss ??? CKD (chronic kidney disease) stage 4, GFR 15-29 ml/min ??? 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 H/O [...] Hypertension ??? Left leg DVT ??? Epilepsy Sabrina Richter MD 06/02/2018 Associated attestation - Tim Torres MD - 06/04/2018 1:09 PM EST I have seen the patient and reviewed the resident's above history and I agree with the details as written. The assessment and plan were formulated in discussion with me and I agree with them as documented. Pertinent History: 57 male CCT Pertinent Exam: Non-focal Major issues addressed: CCT, tSAH Plan: Non-op supportive care documented in this encounter Plan of Treatment Not on file documented as of this encounter Procedures Procedure Name Priority Date/Time Associated Diagnosis Comments US RENAL TRANSPLANT RIGHT STAT 06/04/2018 12:21 PM EST US RETROPERITONEAL COMPLETE STAT 06/04/2018 12:10 PM EST TACROLIMUS LEVEL Timed 06/04/2018 7:08 AM EST HEMOGRAM Routine 06/04/2018 3:35 AM EST DIFFERENTIAL, AUTOMATED Routine 06/04/20 18 3:35 AM EST CBC (WITH DIFF) Routine 06/04/2018 3:35 AM EST BASIC METABOLIC PANEL Routine 06/04/2018 3:35 AM EST DUPLEX FOR DVT BILAT ARM Routine 06/03/2018 2:50 PM EST Swelling DUPLEX FOR DVT BILAT LEGS Routine 06/03/2018 2:50 PM EST Deep vein thrombosis (DVT) of other vein of left lower extremity, unspecified chronicity CT HEAD WO CONTRAST (GENERIC) Routine 06/03/2018 6:55 AM EST HEMOGRAM Routine 06/03/2018 6:31 AM EST DIFFERENTIAL, AUTOMATED Routine 06/03/20 18 6:31 AM EST MYCOPHENOLIC ACID STAT 06/03/2018 6:3 1 AM EST TACROLIMUS LEVEL STAT 06/03/2018 6:31 AM EST CBC (WITH DIFF) Routine 06/03/2018 6:31 AM EST BASIC METABOLIC PANEL Routine 06/03/2018 6:31 AM EST REQUEST FOR 2ND READ CT HEAD AND SPINE STAT 06/02/2018 5:10 PM EST EKG 12-LEAD STAT 06/02/2018 4:57 PM EST IgA nephropathy L-LACTATE2 WHOLE BLOOD Routine 8 4:24 PM EST ABORH RECHECK STATUS STAT 06/02/2018 4:18 PM EST ABO/RH TYPING STAT 06/02/2018 4:18 PM EST ANTIBODY SCREEN STAT 06/02/2018 4:18 PM EST TYPE AND SCREEN ([facility]/CGP/GAVIN) STAT 06/02/2018 4:18 PM EST XR CHEST AP AND PELVIS AP TRAUMA STAT 06/02/2018 4:16 PM EST URINALYSIS MICROSCOPIC EXAM STAT 06/02/2018 4:14 PM EST URINALYSIS WITH REFLEX CULTURE STAT 06/02/2018 4:14 PM EST RAPID DRUG SCREEN, URINE STAT 06/02/2018 4:13 PM EST RAPID DRUG SCREEN W/O CONFIRMATION, URINE STAT 06/02/2018 4:13 PM EST HEMOGRAM STAT 06/02/2018 4:12 PM EST DIFFERENTIAL, AUTOMATED STAT 06/02/20 4:12 PM EST GOLD TUBE HOLD STAT 06/02/2018 4:12 PM EST APTT STAT 06/02/2018 4:12 PM EST PROTHROMBIN TIME STAT 06/02/2018 4:12 PM EST CBC (WITH DIFF) STAT 06/02/2018 4:12 PM EST TROPONIN STAT 06/02/2018 4:12 PM EST ETHANOL LEVEL STAT 06/02/2018 4:12 PM EST BASIC METABOLIC PANEL STAT 06/02/2018 4:12 PM EST documented in this encounter Results * CT Head wo Contrast (Generic) (06/29/2018 10:20 AM EST) Anatomical Region Laterality Modality Head Computed Tomogra phy Impressions 06/29/2018 11:52 AM EST 1. ??Resolution of the previously seen right frontal and temporal lobe subarachnoid hemorrhage. 2. ??New 7 mm left subdural low-density collection with minimal associated mass effect. I have personally reviewed the image(s) and the residents interpretation and agree with the findings, Gordon Wu at 06/29/2018 11:52 AM Narrative 06/29/2018 11:52 AM EST EXAMINATION: CT HEAD WO CONTRAST (GENERIC) CLINICAL HISTORY: tSAH s/p seizure and fall follow-up CT TECHNIQUE: CT head performed without intravenous contrast administration.Coronal and sagittal reformatted images were obtained. COMPARISON: CT head dated 06/03/2018 FINDINGS: The previously seen right frontal and temporal lobe subarachnoid hemorrhage has resolved. No new acute intraparenchymal hemorrhage. There is a new low-attenuation 7 mm left subdural collection. This produces minimal mass effect on the adjacent frontal lobe. The flores-white differentiation is well preserved. Scattered foci of hypoattenuation in the periventricular white matter, nonspecific but likely due to chronic small vessel ischemic disease. No mass or midline shift. The ventricles and sulci are unchanged in size and caliber. The basal cisterns are well preserved. The base of the skull and calvarium are normal. Mild mucoperiosteal thickening of the right maxillary sinus and left sphenoid sinus. The mastoid air cells are clear. Procedure Note Gordon Wu MD - 06/29/2018 EXAMINATION: CT HEAD WO CONTRAST (GENERIC) CLINICAL HISTORY: tSAH s/p seizure and fall follow-up CT TECHNIQUE: CT head performed without intravenous contrast administration.[place]and sagittal reformatted images were obtained. COMPARISON: CT head dated 06/03/2018 FINDINGS: The previously seen right frontal and temporal lobe subarachnoidhemorrhage has resolved. No new acute intraparenchymal hemorrhage. There is a new low-attenuation 7 mm left subdural collection. This produces minimal masseffect on the adjacent frontal lobe. The flores-white differentiation is wellpreserved. Scattered foci of hypoattenuation in the periventricular white matter, nonspecific but likely due to chronic small vessel ischemic disease. [place] or midline shift. The ventricles and sulci are unchanged in size and caliber.The basal cisterns are well preserved. The base of the skull and calvariumare normal. Mild mucoperiosteal thickening of the right maxillary sinus andleft sphenoid sinus. The mastoid air cells are clear. IMPRESSION 1. Resolution of the previously seen right frontal and temporal lobe subarachnoid hemorrhage. 2. New 7 mm left subdural low-density collection with minimal associatedmass effect. I have personally reviewed the image(s) and the residents interpretationand agree with the findings, Gordon Wu at 06/29/2018 11:52 AM 11:52 AM Dmitriy Hoffman APRN IMG CT ORDERABLES * US Renal Transplant Right (06/04/2018 12:21 PM EST) Anatomical Region Laterality Modality Abdomen Right Ultrasound 06/04/2018 12:1 1 PM EST Impressions 06/04/2018 12:41 PM EST No evidenceof malignancy or rejection in the transplanted kidney. ?Noel BUCKNER MD Electronically Signed Final Report ?? 06/04/2018 12:41 pm Narrative 06/04/2018 12:41 PM EST Transplant ? (Signed Final 06/04/2018 12:41 pm) PATIENT INFO: ID #: ? [id number] ? : [birth year] (57 yrs) Name: ? CHRISTY AMBROSE ? Visit Date:06/04/2018 12:11 pm PERFORMED BY: Performed By: ? Patty Rodriguez RDMS Attending: ?Dudley JONES, Noel Resident: ? Javad JONES, Tristin Rubi Referred By: ?LELA EVANS Location: ? [place] SERVICE(S) PROVIDED: ??URTPR - Renal Transplant - Right - [id number] ? [id number] INDICATIONS: ??eval for obstruction, mass or lesion COMPARISON: Ultrasound: 05/12/2017 RENAL ALLOGRAFT: Size (cm) ? L: 10.4 Cortical Thickness: ?Normal Corticomedullary Differention: Normal Echogenicity: ?Normal Perinephric Fluid/Collections: No collection identified Hydronephrosis: ?No sonographic evidence Comment: ?Right transplant kidney; ??Two renal cysts ? visualized, the largest measuring 1.2 x 1.3 x 1.2 ? cm (Superior lateral). RENAL TRANSPLANT DUPLEX: RIGHT Main Renal ? PSV ? EDV ?RIR ??Waveform ?Artery ?(cm/s) ??(cm/s) At ? 41.4 ?8.35 ?0.8 Patent Anastomosis: At [place]: ?43.5 ?11.1 ?0.74 ??Patent RIGHT Main Renal ? Waveform ? Vein Proximal: ?Patent Mid: ? Patent Distal: ?Patent PARENCHYMAL EVALUATION: RIGHT ?Arcuate ? PSV ? EDV ? RI ??Waveform ?Artery ?(cm/s) ??(cm/s) Upper Pole: ?11.4 ?4.67 ?0.59 ??Patent Mid Pole: ?15.4 ?5.34 ?0.65 ??Patent Lower Pole: ?13.7 ?5.01 ?0.63 ??Patent URINARY BLADDER: Pre-void (cm) ?L: 8.1 ? AP: ??6.1 ? TV: ??7.1 Vol (ml): ?183.7 Comment: ?Partially distended and unremarkable. Procedure Note Gurinder Buckner MD - 06/04/2018 Transplant (Signed Final 06/04/2018 12:41 pm) PATIENT INFO: ID #: [id number] : 62 (57 yrs) Name: CHRISTY AMBROSE Visit Date:06/04/2018 12:11 pm PERFORMED BY: Performed By: Patty Rodriguez RDMS Attending: Dudley JONES, Noel Resident: Tristin Farnsworth MD Referred By: LELA EVANS Location: [place] SERVICE(S) PROVIDED: URTPR - Renal Transplant - Right - [id number] INDICATIONS: eval for obstruction, mass or lesion COMPARISON: Ultrasound: 05/12/2017 RENAL ALLOGRAFT: Size (cm) L: 10.4 Cortical Thickness: Normal Corticomedullary Differention: Normal Echogenicity: Normal Perinephric Fluid/Collections: No collection identified Hydronephrosis: No sonographic evidence Comment: Right transplant kidney; Two renal cysts visualized, the largest measuring 1.2 x 1.3 x 1.2 cm (Superior lateral). RENAL TRANSPLANT DUPLEX: RIGHT Main Renal PSV EDV RIR Waveform Artery (cm/s) (cm/s) At 41.4 8.35 0.8 Patent Anastomosis: At [place]: 43.5 11.1 0.74 Patent RIGHT Main Renal Waveform Vein Proximal: Patent Mid: Patent Distal: Patent PARENCHYMAL EVALUATION: RIGHT Arcuate PSV EDV RI Waveform Artery (cm/s) (cm/s) Upper Pole: 11.4 4.67 0.59 Patent Mid Pole: 15.4 5.34 0.65 Patent Lower Pole: 13.7 5.01 0.63 Patent URINARY BLADDER: Pre-void (cm) L: 8.1 AP: 6.1 TV: 7.1 Vol (ml): 183.7 Comment: Partially distended and unremarkable. IMPRESSION No evidenceof malignancy or rejection in the transplanted kidney. Noel BUCKNER MD Electronically Signed Final Report 06/04/2018 12:41 pm Lela Evans APRN IMG US GEN ORDERABLE S * US Retroperitoneal Complete (06/04/2018 12:10 PM EST) Anatomical Region Laterality Modality Abdomen Ultrasound 06/04/2018 12:0 7 PM EST Impressions 06/04/2018 12:39 PM EST Atrophic right kidney. No right renal masses identified to suggest presence of malignancy. ?Noel BUCKNER MD Electronically Signed Final Report ?? 06/04/2018 12:39 pm Narrative 06/04/2018 12:39 PM EST Renal ? (Signed Final 06/04/2018 12:39 pm) PATIENT INFO: ID #: ? [id number] ?: ??[birth year] (57 yrs) Name: ? CHRISTY Ginna CARRILLOON ?Visit Date: 06/04/2018 12:07 pm PERFORMED BY: Performed By: ? Patty Rodriguez RDMS Attending: ?Dudley JONES, Noel Resident: ? Javad JONES, Tristin Rubi Referred By: ?[facility] Location: ? [place] SERVICE(S) PROVIDED: ??URETRO - Retroperitoneal Complete - [id number] ? [id number] INDICATIONS: ??eval [place] and transplant kidney for ??obstruction or malignancy COMPARISON: Ultrasound: 05/14/2017 -------- HISTORY: -------- Left nephrectomy; History of renal cancer RIGHT KIDNEY: Size (cm) ?L: ??6.8 Cortical Thickness: ?Cortical thinning Cortical Echogenicity: ?? Echogenic Hydronephrosis: ?No sonographic evidence LEFT KIDNEY: Comment: ?Surgically absent URINARY BLADDER: Pre-void (cm) ? L: ??8.1 ? AP: ??6.1 ? TV: ??7.1 Vol (ml): ?183.7 Comment: ?Partially distended, normal contour ADDITIONAL FINDINGS: Incidental Finding: Right pleural effusion Procedure Note Gurinder Buckner MD - 06/04/2018 Renal (Signed Final 06/04/2018 12:39 pm) PATIENT INFO: ID #: [id number] : 62 (57 yrs) Name: CHRISTY AMBROSE Visit Date: 06/04/2018 12:07 pm PERFORMED BY: Performed By: Patty Rodriguez RDMS Attending: Noel Buckner MD Resident: Tristin Farnsworth MD Referred By: LELA EVANS Location: [place] SERVICE(S) PROVIDED: URETRO - Retroperitoneal Complete - [id number] INDICATIONS: eval southern ute and transplant kidney for obstruction or malignancy COMPARISON: Ultrasound: 05/14/2017 -------- HISTORY: -------- Left nephrectomy; History of renal cancer RIGHT KIDNEY: Size (cm) L: 6.8 Cortical Thickness: Cortical thinning Cortical Echogenicity: Echogenic Hydronephrosis: No sonographic evidence LEFT KIDNEY: Comment: Surgically absent URINARY BLADDER: Pre-void (cm) L: 8.1 AP: 6.1 TV: 7.1 Vol (ml): 183.7 Comment: Partially distended, normal contour ADDITIONAL FINDINGS: Incidental Finding: Right pleural effusion IMPRESSION Atrophic right kidney. No right renal masses identified to suggest presence of malignancy. Noel BUCKNER MD Electronically Signed Final Report 06/04/2018 12:39 pm Lela Evans APRN IMG US GEN ORDERABLE S * Tacrolimus level (06/04/2018 7:08 AM EST) Tacrolimus 2.2 ng/mL [facility] Comment: Trough therapeutic: ??5-15 ng/mL Performed by ultra-performance liquid chromatography tandem mass spectrometry (UPLCMS/MS). This test was developed and its performance characteristics determined by [facility]. It has not been cleared or approved by the FDA. The laboratory is regulated under CLIA as qualified to perform high-complexity testing. This test is used for clinical purposes. It should not be regarded as investigational or for research. Blood specimen (specimen) 06/04/2018 7:08 AM EST 06/06/2018 8:14 AM EST Narrative Resulting Agency Comment Spec In Lab Lela Evans APRN [place] [address] * Differential, Automated (06/04/2018 3:35 AM EST) Pathologist [facility] Neutrophil % 58.9 % [facility] Neutrophil Absolute 2.26 1.70 - 6.10 x10(3)/[facility] LABORATORY Lymph % 26.0 % [facility] Lymphocytes Abs 1.0 0.9 - 3.2 x10(3)/[facility] LABORATORY Monocyte % 9.1 % [facility] Monocyte Abs 0.4 0.3 - 0.9 x10(3)/[facility] LABORATORY Eos % 4.9 % [facility] Eosinophils Abs 0.2 0.0 - 0.4 x10(3)/[facility] Basophil % 0.8 % [facility] Baso Absolute 0.0 0.0 - 0.1 x10(3)/[facility] Immature Gran % 0.30 % [facility] Comment: Immature granulocytes(IG's)percentage and absolute count will include metamyelocytes, myelocytes, and promyelocytes. Blood smears from CBCs yielding IG's will be scanned manually for concordance. If this scan disagrees with the automated IG or if promyelocytes are noted, a manual differential will be performed. Immature Gran Absolute 0.01 0.00 - 0.04 x10(3)/[facility] LABORATORY Blood specimen (specimen) 06/04/2018 3:35 AM EST 06/04/2018 3:50 AM EST Narrative Resulting Agency Comment Spec In Lab Burak Flores MD [place] [address] * (ABNORMAL) Hemogram (06/04/2018 3:35 AM EST) Pathologist [facility] White Blood Cell 3.8(L) 4.0 - 9.5 x10(3)/mc L [facility] Red Blood Cell 2.40(L) 4.58 - 5.54 x10(6)/mc L [facility] Hemoglobin 7.5(L) 13.7 - 16.5 gm/dL [facility] Hematocrit 22.8(L) 40.5 - 48.5 % [facility] Mean Cell Volume 95.0(H) 82.9 - 93.1 fL [facility] Mean Cell Hemoglobin 31.3 27.5 - 32.1 pg [facility] Mean Cell Hemoglobin Concentration 32.9 32.0 - 35.7 gm/dL [facility] Platelet 103(L) 145 - 357 x10(3)/ L [facility] RDW Standard Deviation 51.3(H) 36.0 - 45.0 [facility] LABORATORY RDW coefficient of variation 14.7(H) 11.4 - 13.8 % [facility] Mean Platelet Volume 9.1 7.6 - 12.9 [facility] LABORATORY NRBC% auto 0.0 % [facility] NRBC Absolute 0.000 0.000 - 0.000 x10(3)/[facility] LABORATORY Blood specimen (specimen) 06/04/2018 3:35 AM EST 06/04/2018 3:50 AM EST Narrative Resulting Agency Comment Spec In Lab Burak Flores MD HEMATOLOGY ORDERABLE S [facility] [place] [address] * (ABNORMAL) Basic Metabolic Panel (non-fasting) (06/04/2018 3:35 AM EST) Glucose 94 65 - 199 mg/dL [facility] Comment:Diabetes: >=200 mg/d L plus symptoms Blood Urea Nitrogen 52(H) 10 - 20 mg/dL [facility] Creatinine 3.37(H) 0.80 - 1.50 mg/dL [facility] Sodium 139 135 - 145 mmol/L [facility] Potassium 4.5 3.5 - 5.0 mmol/L [facility] Comment: Please note: ??Patients with WBC >100,000 may have falsely elevated Potassium levels. ??For accurate Potassium quantification in these patients send serum separator tube (gold top) for subsequent determinations. ??Contact the Clinical Chemistry Laboratory if there are any questions. Chloride 111(H) 98 - 107 mmol/L [facility] Carbon Dioxide 13(L) 22 - 31 mmol/L [facility] Anion Gap 15 5 - 15 mmol/L [facility] Calcium 7.5(L) 8.5 - 10.5 mg/dL [facility] Est Glomerular Filtration Rate 19(L) >=60 mL/min/1. 73 m?? [facility] Comment: The eGFR was calculated using the CKD-EPI equation. As with all creatinine based estimates of kidney function, eGFR values calculated with the CKD-EPI equation are not accurate in patients with acute kidney failure, extremes of body mass or the acutely ill. [email or web address] Points/Changonkf eGFR 22(L) >=60 mL/min/1. 73 m?? [facility] Comment: The eGFR was calculated using the CKD-EPI equation. As with all creatinine based estimates of kidney function, eGFR values calculated with the CKD-EPI equation are not accurate in patients with acute kidney failure, extremes of body mass or the acutely ill. [email or web address] [email or web address] Blood specimen (specimen) 06/04/2018 3:35 AM EST 06/04/2018 3:50 AM EST Narrative Resulting Agency Comment Spec In Lab Lela Evans APRN CHEMISTRY ORDERABLES [facility] [place] [address] * Duplex Study for DVT, Bilat legs (06/03/2018 2:50 PM EST) VB Text Report Department: Vascular Surgery Lab Patient: [id number] (ARNOL, CHRISTY) CPT: 77175 ICD10: I82.492;I82.512;I 82.511 Referring Physician: LELA EVANS ?? Phone: Indications: s/p fall with bedrest with bilateral lower extremity edema; ? DVT ICD10 Diagnosis Code: I82.512, I82.511 RIGHT: Chronic, non-occlusive deep venous thrombosis in the femoral vein of the mid to distal thigh, popliteal vein, one of the paired posterior tibial veins, and one of the paired peroneal veins. Venous reflux noted in the popliteal vein. Well established collateral system noted throughout. Findings suggest chronic DVT, however, superimposed acute thrombus cannot be excluded by ultrasound. Patent common femoral vein with spontaneous, respirophasic Doppler waveforms that respond normally to augmentation maneuvers. The common femoral vein and saphenofemoral junction are fully compressible. LEFT: Chronic, occlusive deep venous thrombosis in the femoral vein of the thigh, popliteal vein, one of the paired posterior tibial veins, and one of the paired peroneal veins. Venous reflux noted in the popliteal vein. Well established collateral system noted throughout. Findings suggest chronic DVT, however, superimposed acute thrombus cannot be excluded by ultrasound. Patent common femoral vein with spontaneous, respirophasic Doppler waveforms that respond normally to augmentation maneuvers. The common femoral vein and saphenofemoral junction are fully compressible Interpretation: RIGHT: ??Extensive chronic, non-occlusive DVT. LEFT: ??Extensive, chronic, occlusive DVT. Comparison: ??No previous study in our vascular lab database for comparison. Notification: Lela Evans APRN was informed of these preliminary findings. Electronically Signed by: NATALYA GALLO on 2018-06-05 09:32:39 AM VASCUBASE VB Text Report End of Report VASCUBASE 06/03/2018 2:50 PM EST Lela Evans APRN VASCULAR ORDERABLES VASCUBASE * Duplex for DVT, arm, bilat (06/03/2018 2:50 PM EST) VB Text Report Department: Vascular Surgery Lab Patient: [id number] (ARNOL, CHRISTY) CPT: 75278 ICD10: I82.611;R60.9;I8 2.A11 Referring Physician: LELA EVANS ?? Phone: Indications: s/p fall with bedrest now with upper extremity edema; ? DVT ICD10 Diagnosis Code: I82.611, R60.9, I82.A11 Right: Acute, non-occlusive deep venous thrombosis in the axillary vein and one of the paired brachial veins. Acute, superficial thrombus noted in the cephalic vein of the upper arm. The basilic vein is patent and fully compressible with no evidence of thrombus. The internal jugular vein is patent and fully compressible with no evidence of thrombus. While compression maneuvers cannot be performed on the subclavian or innominate veins, there is no pulsed Doppler or color Doppler evidence to suggest thrombus in these veins. Left: The axillary, brachial, and basilic veins are patent and fully compressible with no evidence of thrombus. The internal jugular vein is patent and fully compressible with no evidence of thrombus. While compression maneuvers cannot be performed on the subclavian or innominate veins, there is no pulsed Doppler or color Doppler evidence to suggest thrombus in these veins. Unable to visualize the cephalic vein; cannot exclude thrombus. Interpretation: Right: Acute, non-occlusive DVT in the axillary and one brachial vein. Superficial thrombus in the cephalic vein. No evidence of internal jugular vein thrombus. Left: No evidence of upper extremity deep or superficial basilic venous thrombus. No evidence of internal jugular vein thrombus. Unable to visualize the cephalic vein; cannot exclude thrombus. Comparison: ??No previous study in our vascular lab database for comparison. Notification: ??Lela Evans APRN was informed of these preliminary findings. Electronically Signed by: NATALYA GALLO on 2018-06-05 09:34:35 AM VASCUBASE VB Text Report End of Report VASCUBASE 06/03/2018 2:50 PM EST Lela Evans APRN VASCULAR ORDERABLES VASCUBASE * CT Head wo Contrast (Generic) (06/03/2018 6:55 AM EST) Anatomical Region Laterality Modality Head Computed Tomogra phy Impressions 06/03/2018 7:06 AM EST 1. ??Foci of subarachnoid hemorrhage overlying bilateral anterior inferior frontal and right anterior temporal lobe sulci. 2. ??Small hemorrhagic contusions in the right frontal and anterior temporal lobe. Narrative 06/03/2018 7:06 AM EST EXAMINATION: CT HEAD WO CONTRAST (GENERIC) CLINICAL HISTORY: f/u [facility] TECHNIQUE: CT head performed without intravenous contrast administration.Coronal and sagittal reformats. COMPARISON: June 02, 2018 FINDINGS: Scattered foci of subarachnoid hemorrhage are again seen in the right inferior frontal lobe and anterior temporal lobe. Small areas of focal parenchymal contusions with punctate foci of hemorrhage are also present in this region. Subarachnoid hemorrhage is also seen within the adjacent left anterior frontal lobe sulci. No associated mass effect. Flores-white differentiation is preserved. Similar pattern of periventricular white matter hypoattenuation. Ventricles are stable in size. Basal cisterns are patent. Procedure Note Savanna Starr MD - 06/03/2018 EXAMINATION: CT HEAD WO CONTRAST (GENERIC) CLINICAL HISTORY: f/u [facility] TECHNIQUE: CT head performed without intravenous contrast administration.Coronaland sagittal reformats. COMPARISON: June 02, 2018 FINDINGS: Scattered foci of subarachnoid hemorrhage are again seen in the rightinferior frontal lobe and anterior temporal lobe. Small areas of focalparenchymal contusions with punctate foci of hemorrhage are also present in thisregion. Subarachnoid hemorrhage is also seen within the adjacent left anteriorfrontal lobe sulci. No associated mass effect. Flores-white differentiation ispreserved. Similar pattern of periventricular white matter hypoattenuation.Ventricles are stable in size. Basal cisterns are patent. IMPRESSION 1. Foci of subarachnoid hemorrhage overlying bilateral anteriorinferior frontal and right anterior temporal lobe sulci. 2. Small hemorrhagic contusions in the right frontal and anteriortemporal lobe. Lawrence Flores MD IMG CT ORDERABLES * (ABNORMAL) Mycophenolic Acid (06/03/2018 6:31 AM EST) Mycophen Lvl (NOVEMBER) 0.8(L) 1.0 - 3.5 mcg/mL [facility] Comment: Test Performed by: [facility] - [address] [address] Mycophen-G Lvl (NOVEMBER) 33(L) 35 - 100 mcg/mL [facility] Comment: ADDITIONAL INFORMATION Target steady-state trough concentrations vary depending on the type of transplant, concomitant immunosuppression, clinical/institutional protocols, and time post-transplant. Results should be interpreted in conjunction with this clinical information and any physical signs/symptoms of rejection/toxicity. Testing performed by Liquid Chromatography-Tandem Mass Spectrometry (LC-MS/MS). This test was developed and its performance characteristics determined by [facility] in a manner consistent with CLIA requirements. This test has not been cleared or approved by the U.S. Food and Drug Administration. Test Performed by: [facility] - [address] [address] Blood specimen (specimen) 06/03/2018 6:31 AM EST 06/03/2018 8:52 AM EST Narrative Resulting Agency Comment Spec In Lab Lela Kalyan Kale [facility] SEND OUT ORDERAB LES [facility] [place] [address] * Tacrolimus level (06/03/2018 6:31 AM EST) Tacrolimus 2.6 ng/mL [facility] Comment: Trough therapeutic: ??5-15 ng/mL Performed by ultra-performance liquid chromatography tandem mass spectrometry (UPLCMS/MS). This test was developed and its performance characteristics determined by [facility]. It has not been cleared or approved by the FDA. The laboratory is regulated under CLIA as qualified to perform high-complexity testing. This test is used for clinical purposes. It should not be regarded as investigational or for research. Blood specimen (specimen) 06/03/2018 6:31 AM EST 06/03/2018 7:24 AM EST Narrative Resulting Agency Comment Spec In Lab Lela Evans CATRACHITO CHEMISTRY ORDERABLES [facility] [place] [address] * (ABNORMAL) Differential, Automated (06/03/2018 6:31 AM EST) Neutrophil % 70.9 % [facility] Neutrophil Absolute 3.41 1.70 - 6.10 x10(3)/mc L [facility] Lymph % 17.5 % [facility] Lymphocytes Abs 0.8(L) 0.9 - 3.2 x10(3)/mc L [facility] Monocyte % 9.1 % [facility] Monocyte Abs 0.4 0.3 - 0.9 x10(3)/mc L [facility] Eos % 1.9 % [facility] Eosinophils Abs 0.1 0.0 - 0.4 x10(3)/ L [facility] Basophil % 0.2 % [facility] Baso Absolute 0.0 0.0 - 0.1 x10(3)/mc L [facility] Immature Gran % 0.40 % [facility] Comment: Immature granulocytes(IG's)percentage and absolute count will include metamyelocytes, myelocytes, and promyelocytes. Blood smears from CBCs yielding IG's will be scanned manually for concordance. If this scan disagrees with the automated IG or if promyelocytes are noted, a manual differential will be performed. Immature Gran Absolute 0.02 0.00 - 0.04 x10(3)/mc L [facility] Blood specimen (specimen) 06/03/2018 6:31 AM EST 06/03/2018 6:38 AM EST Narrative Resulting Agency Comment Spec In Lab Burak Flores MD HEMATOLOGY ORDERABLE S [facility] [place] [address] * (ABNORMAL) Hemogram (06/03/2018 6:31 AM EST) White Blood Cell 4.8 4.0 - 9.5 x10(3)/mc L [facility] Red Blood Cell 2.60(L) 4.58 - 5.54 x10(6)/mc L [facility] Hemoglobin 7.9(L) 13.7 - 16.5 gm/dL [facility] Hematocrit 24.1(L) 40.5 - 48.5 % [facility] Mean Cell Volume 92.7 82.9 - 93.1 fL [facility] Mean Cell Hemoglobin 30.4 27.5 - 32.1 pg [facility] Mean Cell Hemoglobin Concentration 32.8 32.0 - 35.7 gm/dL [facility] Platelet 119(L) 145 - 357 x10(3)/mc L [facility] RDW Standard Deviation 49.2(H) 36.0 - 45.0 fL [facility] RDW coefficient of variation 14.7(H) 11.4 - 13.8 % [facility] Mean Platelet Volume 8.5 7.6 - 12.9 fL [facility] NRBC% auto 0.0 % [facility] NRBC Absolute 0.000 0.000 - 0.000 x10(3)/mc L [facility] Blood specimen (specimen) 06/03/2018 6:31 AM EST 06/03/2018 6:38 AM EST Narrative Resulting Agency Comment Spec In Lab Burak Flores MD HEMATOLOGY ORDERABLE S [facility] [place] [address] * (ABNORMAL) Basic Metabolic Panel (non-fasting) (06/03/2018 6:31 AM EST) Glucose 101 65 - 199 mg/dL [facility] Comment:Diabetes: >=200 mg/d L plus symptoms Blood Urea Nitrogen 57(H) 10 - 20 mg/dL [facility] Creatinine 3.27(H) 0.80 - 1.50 mg/dL [facility] Sodium 140 135 - 145 mmol/L [facility] Potassium 5.1(H) 3.5 - 5.0 mmol/L [facility] Comment: Please note: ??Patients with WBC >100,000 may have falsely elevated Potassium levels. ??For accurate Potassium quantification in these patients send serum separator tube (gold top) for subsequent determinations. ??Contact the Clinical Chemistry Laboratory if there are any questions. Chloride 111(H) 98 - 107 mmol/L [facility] Carbon Dioxide 14(L) 22 - 31 mmol/L [facility] Anion Gap 15 5 - 15 mmol/L [facility] Calcium 7.6(L) 8.5 - 10.5 mg/dL [facility] Est Glomerular Filtration Rate 20(L) >=60 mL/min/1. 73 m?? [facility] Comment: The eGFR was calculated using the CKD-EPI equation. As with all creatinine based estimates of kidney function, eGFR values calculated with the CKD-EPI equation are not accurate in patients with acute kidney failure, extremes of body mass or the acutely ill. [email or web address] [email or web address] CITYnkf eGFR 23(L) >=60 mL/min/1. 73 m?? [facility] Comment: The eGFR was calculated using the CKD-EPI equation. As with all creatinine based estimates of kidney function, eGFR values calculated with the CKD-EPI equation are not accurate in patients with acute kidney failure, extremes of body mass or the acutely ill. [email or web address] [email or web address] Blood specimen (specimen) 06/03/2018 6:31 AM EST 06/03/2018 6:38 AM EST Narrative Resulting Agency Comment Spec In Lab Lela Evans PLACEMENT SPECIALIST CHEMISTRY ORDERABLES [facility] [place] [address] * Request For 2nd Read CT Head And Spine (06/02/2018 5:10 PM EST) Anatomical Region Laterality Modality Head, C-spine, T-spine, L-spine SO Impressions 06/02/2018 7:42 PM EST 1. ??Small amounts of subarachnoid blood along the right frontal and anterior temporal lobes. Possible small foci of hemorrhagic contusion in these areas. 2. ??No acute fracture of the cervical spine. Preliminary report signed by: Leslie Harman at 06/02/2018 5:50 PM I have personally reviewed the image(s) and the residents interpretation and agree with the findings, Charanjit Cooper at 06/02/2018 7:42 PM Narrative 06/02/2018 7:42 PM EST EXAMINATION: REQUEST FOR 2ND READ CT HEAD AND SPINE CLINICAL HISTORY: s/p fall with head trauma, please evaluate traumatic injury; What Modality is the exam? CT Scan; Body Part (please add comments as necessary): Head and C spine; I believe a reinterpretation of this exam may alter care of Patient. Yes TECHNIQUE: CT head and cervical spine images without intravenous contrast were obtained at [facility] on 06/02/2018 ??at 1324. COMPARISON: CT head dated 04/06/2018 FINDINGS: Head: There is subarachnoid hemorrhage in the sulci of the right frontal lobe and anterior temporal lobe with possible small adjacent foci of intraparenchymal hemorrhage. There is local sulci effacement. No midline shift. The ventricles are unchanged in size and caliber. The basal cisterns are patent. Soft tissue swelling overlying the left frontal convexity. No associated calvarial fracture. The orbits are normal. Minimal mucosal thickening of the maxillary sinuses. The mastoid air cells are clear. Cervical spine: Normal alignment. No loss of vertebral body height or disc space. There is facet and uncovertebral arthropathy most significant at C3-4. No prevertebral soft tissue swelling. The lung apices are clear. Procedure Note Charanjit Cooper MD - 06/02/2018 EXAMINATION: REQUEST FOR 2ND READ CT HEAD AND SPINE CLINICAL HISTORY: s/p fall with head trauma, please evaluate traumaticinjury; What Modality is the exam? CT Scan; Body Part (please add comments as necessary): Head and C spine; I believe a reinterpretation of this exammay alter care of Patient. Yes TECHNIQUE: CT head and cervical spine images without intravenous contrast wereobtained at [facility] on 06/02/2018 at 1324. COMPARISON: CT head dated 04/06/2018 FINDINGS: Head: There is subarachnoid hemorrhage in the sulci of the right frontal lobeand anterior temporal lobe with possible small adjacent foci ofintraparenchymal hemorrhage. There is local sulci effacement. No midline shift. Theventricles are unchanged in size and caliber. The basal cisterns are patent. Soft tissue swelling overlying the left frontal convexity. No associated calvarial fracture. The orbits are normal. Minimal mucosal thickening ofthe maxillary sinuses. The mastoid air cells are clear. Cervical spine: Normal alignment. No loss of vertebral body height or disc space. There isfacet and uncovertebral arthropathy most significant at C3-4. No prevertebralsoft tissue swelling. The lung apices are clear. IMPRESSION 1. Small amounts of subarachnoid blood along the right frontal andanterior temporal lobes. Possible small foci of hemorrhagic contusion in theseareas. 2. No acute fracture of the cervical spine. Preliminary report signed by: Leslie Harman at 06/02/2018 5:50 PM I have personally reviewed the image(s) and the residents interpretationand agree with the findings, Charanjit Cooper at 06/02/2018 7:42 PM Lawrence Flores MD IMG OUTSIDE INTERPR ETATION ORDERABLES * EKG 12 Lead (06/02/2018 4:57 PM EST) Ventricular rate 62 BPM MUSE SYSTEM Atrial Rate 62 BPM MUSE SYSTEM P-R Interval 154 ms MUSE SYSTEM QRS Duration 82 ms MUSE SYSTEM Q-T Interval 440 ms MUSE SYSTEM QTC Calculated (Bezet) 446 ms MUSE SYSTEM Calculated P [place] 73 degrees MUSE SYSTEM Calculated R [place] 63 degrees MUSE SYSTEM Calculated T [place] 51 degrees MUSE SYSTEM INTERPRETATION Normal sinus rhythm Normal ECG When compared with ECG of 28-APR-2018 07:17, No significant change was found Confirmed by MD NETTLES ARMIN ([id number]) on 06/02/2018 11:34:50 PM MUSE SYSTEM 06/02/2018 4:57 PM EST 06/02/2018 11:34 PM EST Lawrence Flores MD ECG ORDERABLES MUSE SYSTEM * L-Lactate2 Whole Blood (06/02/2018 4:24 PM EST) [facility] Lactate WB 1.0 0.5 - 2.2 mmol/L [facility] Blood specimen (specimen) 06/02/2018 4:24 PM EST 06/02/2018 4:24 PM EST Lawrence Flores MD CHEMISTRY ORDERABLE S Performing Organization Address [facility]/ZIP Co de Phone Number [facility] [place] [address] * ABORH Recheck Status (06/02/2018 4:18 PM EST) [facility] ABORH Type Recheck Completed [facility] Blood specimen (specimen) 06/02/2018 4:18 PM EST 06/02/2018 4:18 PM EST Narrative Resulting Agency Comment Spec In Lab Lawrence Flores MD BLOOD BANK LAB ORDE RABLES Performing Organization Address [facility]/ZIP Co de Phone Number [facility] [place] [address] * Antibody screen (06/02/2018 4:18 PM EST) [facility] Ab Screen Interp Negative [facility] Expires at [id number] on: 06/05/2018 [facility] Blood specimen (specimen) 06/02/2018 4:18 PM EST 06/02/2018 4:18 PM EST Narrative Resulting Agency Comment Spec In Lab Lawrence Flores MD BLOOD BANK LAB ORDOctaviano CALERO Performing Organization Address City/[facility]/ZIP Co de Phone Number [facility] [place] [address] * ABO/Rh Typing (06/02/2018 4:18 PM EST) ABORH Type A Pos [facility] Blood specimen (specimen) 06/02/2018 4:18 PM EST 06/02/2018 4:18 PM EST Narrative Resulting Agency Comment Spec In Lab Lawrence Flores MD BLOOD BANK LAB RYAN CALERO Performing Organization Address [facility] Co de Phone Number [facility] [place] [address] * XR Chest AP and Pelvis AP Trauma (Generic) (06/02/2018 4:16 PM EST) Anatomical Region Laterality Modality N/A Digital Radiogra phy Impressions 06/02/2018 4:26 PM EST FINDINGS/IMPRESSION: Chest: Cardiomediastinal contours are magnified. Pulmonary vascular congestion. No focal consolidation. No pleural effusions. No pneumothorax. Bony and soft tissue structures are unremarkable. Pelvis: There is no acute fracture, no dislocation. Mild-moderate eccentric osteoarthritic changes of the bilateral hip joints. Mild degenerative changes of the lower lumbosacral spine. The bilateral sacroiliac joints are intact. Symphysis pubis is intact. Gas pattern of the abdomen is nonobstructing. Narrative 06/02/2018 4:26 PM EST EXAMINATION: XR CHEST AP AND PELVIS AP TRAUMA (GENERIC) CLINICAL HISTORY: Fell from standing head [facility] TECHNIQUE: Supine radiographs of the chest and the pelvis COMPARISON: 04/06/2018 Procedure Note Sindhu Caraballo MD - 06/02/2018 EXAMINATION: XR CHEST AP AND PELVIS AP TRAUMA (GENERIC) CLINICAL HISTORY: Fell from standing head [facility] TECHNIQUE: Supine radiographs of the chest and the pelvis COMPARISON: 04/06/2018 IMPRESSION FINDINGS/IMPRESSION: Chest: Cardiomediastinal contours are magnified. Pulmonary vascular congestion. No focal consolidation. No pleural effusions. No pneumothorax. Bony and soft tissue structures are unremarkable. Pelvis: There is no acute fracture, no dislocation. Mild-moderate eccentric osteoarthritic changes of the bilateral hip joints. Mild degenerativechanges of the lower lumbosacral spine. The bilateral sacroiliac joints are intact. Symphysis pubis is intact. Gas pattern of the abdomen is nonobstructing. Electronically signed by: Sindhu Caraballo Radiology, at108/02/2017 4:26 PM Lawrence Flores MD IMG DX ORDERABLES * (ABNORMAL) Urinalysis Microscopic Exam (06/02/2018 4:14 PM EST) RBC, Urine 8(H) 0 - 3 /HPF [facility] WBC, Urine 1 0 - 3 /HPF [facility] Bacteria, Urine Rare(A) None /HPF [facility] Squamous Epithelial Cells Raw Data, Urine <1 <=4 /HPF [facility] Hyaline Casts, Urine 17(H) 0 - 2 /LPF [facility] Granular Casts, Urine 7(H) <=0 /LPF [facility] Amorphous Crystals, Urine Occasional (A) None /HPF [facility] Urine specimen obtained by clean catch procedure (specimen) 06/02/2018 4:14 PM EST 06/03/2018 1:03 AM EST Narrative Resulting Agency Comment Spec In Lab Lawrence Flores MD URINE ORDERABLES [facility] [place] [address] * (ABNORMAL) Urinalysis with reflex Culture (06/02/2018 4:14 PM EST) Glucose, Urine Dipstick Negative Negative mg/dL [facility] Protein, Urine Dipstick >=500(A) Negative mg/dL [facility] Bilirubin, Urine Dipstick Negative Negative mg/dL [facility] Comment: Clinical correlation required for positive Urine Bilirubin results as false positive may occur with some drugs and drug related products. If a false positive is suspected a serum total bilirubin should be considered if clinically indicated. Urobilinogen, Urine Dipstick Normal Normal mg/dL [facility] pH, Urn (dipstick) 5.0 5.0 - 8.0 [facility] Blood, Urine Dipstick Small(A) Negative mg/dL [facility] Ketone, Urine Dipstick Negative Negative mg/dL [facility] Nitrite, Urine Dipstick Negative Negative [facility] Leukocytes, Urine Dipstick Negative Negative [facility]ATORY Appearance, Urine Dipstick Hazy(A) Clear [facility] Specific [place] Urine Automated 1.018 1.002 - 1.030 [facility] Color, Urine Dipstick Yellow Yellow [facility] Reflex to Culture No [facility] Urine specimen obtained by clean catch procedure (specimen) 06/02/2018 4:14 PM EST 06/03/2018 1:02 AM EST Narrative Resulting Agency Comment Spec In Lab Lawernce Flores MD URINE ORDERABLES [facility] [place] [address] * Rapid Drug Screen w/o Confirmation, Urine (06/02/2018 4:13 PM EST) Barbiturates Screen, Urine None Detected None Detected [facility] Comment: The barbiturate screen detects barbiturates at concentrations >200 ng/mL. Note: Not all barbiturates cross-react equally with antibody used in this screen. A ? Presumptive Positive? result indicates that the screening result was positive but has not yet been confirmed by a highly-specific method. As with any screen, occasional false positive results from cross-reacting substances may occur. Not for Medico-Legal Purposes. Benzodiazepines Screen, Urine None Detected None Detected [facility] Comment: The benzodiazepines screen detects benzodiazepines at concentrations >100 ng/mL. Not all benzodiazepines cross-react equally with antibody used in this screen. Due to the low dosage of clonazepam, false negatives may be obtained due to low concentration of clonazepam metabolites. A ? Presumptive Positive? result indicates that the screening result was positive but has not yet been confirmed by a highly-specific method. As with any screen, occasional false positive results from cross-reacting substances may occur. Not for Medico-Legal Purposes. Cocaine Screen, Urine None Detected None Detected [facility] Comment: The cocaine metabolites screen detects benzoylecgonine (Cocaine Metabolite) at concentrations >150 ng/mL. A ? Presumptive Positive? result indicates that the screening result was positive but has not yet been confirmed by a highly-specific method. As with any screen, occasional false positive results from cross-reacting substances may occur. Not for Medico-Legal Purposes. Methadone Metabolites Screen, Urine None Detected None Detected [facility] Comment: The methadone metabolite screen detects EDDP (major methadone metabolite) at concentrations >100 ng/mL. A ? Presumptive Positive? result indicates that the screening result was positive but has not yet been confirmed by a highly-specific method. As with any screen, occasional false positive results from cross-reacting substances may occur. Not for Medico-Legal Purposes. Opiate Screen, Urine None Detected None Detected [facility] Comment: The opiates screen detects opiates at concentrations >300 ng/mL. Please note that oxycodone, oxymorphone, fentanyl, tramadol, and other synthetic opioids are not detected by the opiate screen. A ? Presumptive Positive? result indicates that the screening result was positive but has not yet been confirmed by a highly-specific method. As with any screen, occasional false positive results from cross-reacting substances may occur. Not for Medico-Legal Purposes. Cannabinoid Screen, Urine None Detected None Detected [facility] Comment: The marijuana metabolites screen detects the THC metabolite (19-pgy-5-carboxy-delta 9-THC) at concentrations >20 ng/mL. A ? Presumptive Positive? result indicates that the screening result was positive but has not yet been confirmed by a highly-specific method. As with any screen, occasional false positive results from cross-reacting substances may occur. Not for Medico-Legal Purposes. Oxycodone Screen, Urine None Detected None Detected [facility] Comment: The oxycodone screen detects oxycodone and oxymorphone at concentrations >100 ng/mL. A ? Presumptive Positive? result indicates that the screening result was positive but has not yet been confirmed by a highly-specific method. As with any screen, occasional false positive results from cross-reacting substances may occur. Not for Medico-Legal Purposes. Buprenorphine Screen, Urine None Detected None Detected [facility] Comment: The buprenorphine screen detects buprenorphine at concentrations >5 ng/mL. A ? Presumptive Positive? result indicates that the screening result was positive but has not yet been confirmed by a highly-specific method. As with any screen, occasional false positive results from cross-reacting substances may occur. Not for Medico-Legal Purposes. Fentanyl Screen, Urine None Detected None Detected [facility] Comment: The fentanyl screen detects fentanyl at concentrations >2 ng/mL. A ? Presumptive Positive? result indicates that the screening result was positive but has not yet been confirmed by a highly-specific method. As with any screen, occasional false positive results from cross-reacting substances may occur. Not for Medico-Legal Purposes. Tricyclics Screen, Urine None Detected None Detected [facility] Comment: The tricyclics screen detects tricyclic antidepressants at concentrations >150 ng/mL. Not all tricyclics cross-react equally with the antibody used in this screen. A ? Presumptive Positive? result indicates that the screening result was positive but has not yet been confirmed by a highly-specific method. As with any screen, occasional false positive results from cross-reacting substances may occur. Not for Medico-Legal Purposes. Ethanol Screen, Urine None Detected None Detected [facility] Comment:This urine ethanol a ssay detects ethanol at concentrations >/= 100 mg/L. Amphetamines Screen, Urine None Detected None Detected [facility] Comment: The amphetamine screen detects d-amphetamine and d-methamphetamine at concentrations >300 ng/mL. A ? Presumptive Positive? result indicates that the screening result was positive but has not yet been confirmed by a highly-specific method. As with any screen, occasional false positive results from cross-reacting substances may occur. Not for Medico-Legal Purposes. Adulterants Screen, Urine None Detected None Detected [facility] Comment: No adulteration or dilution of this urine sample was detected. All urine samples submitted for urine drugs of abuse analysis are tested for creatinine concentration, pH, and for the presence of oxidants, nitrites, and chromate. Urine specimen (specimen) 06/02/2018 4:13 PM EST 06/03/2018 1:02 AM EST Narrative Resulting Agency Comment Spec In Lab Lawrence Flores MD CHEMISTRY ORDERABLE S Performing Organization Address [facility] Co de Phone Number [facility] [place] [address] * Rapid Drug Screen, Urine (RAUL Request) (06/02/2018 4:13 PM EST) RAUL Conf Requested No [facility] RAUL Requested See Comment [facility] Comment:Refer to Rapid Drug Screen w/o Confirmation, Urine for results. Urine specimen (specimen) 06/02/2018 4:13 PM EST 06/03/2018 1:02 AM EST Narrative Resulting Agency Comment Spec In Lab Lawrence Flores MD URINE ORDERABLES Performing Organization Address [facility] Co de Phone Number [facility] [place] [address] * (ABNORMAL) Troponin (06/02/2018 4:12 PM EST) Troponin-T 0.02(H) 0.00 - 0.00 ng/mL [facility] Comment: Called by: JATINDER, Read back by: Mai Mejía, Date/Time:06/02/18 17:48. The 99th percentile for Troponin T is less than 0.01 ng/mL, any detectable cTnT concentration using this assay should be considered elevated. According to the third universal definition of myocardial infarction the following criteria with a clinical presentation consistent with acute myocardial ischemia meets the diagnosis for a myocardial infarction ([place]). Detection of a rise and/or fall of cTnT, with at least one value greater than the 99th percentile (> or = 0.01) and with at least one of the following ?? Symptoms of ischemia ?? New or presumed new significant TL-mrpjdti-[id number] wave (ST-T) changes or new left bundle branch block (LBBB) ?? Development of pathologic Q waves in the ECG ?? Imaging evidence of new loss of viable myocardium or new regional wall motion abnormality ?? Identification of an intracoronary thrombus by angiography or autopsy Samples for cTnT testing should be obtained serially upon first assessment and again 3 to 6 hours later. If the clinical suspicion is high and previous samples have been negative an additional sample may be indicated. Reference: Third [place] Definition of Myocardial Infarction. Journal of the [place] [employer] 2012;60:1581-98 Blood specimen (specimen) Venous Draw / Unknown 06/02/2018 4:12 PM EST 06/02/2018 4:18 PM EST Narrative Resulting Agency Comment Spec In Lab Burak Flores MD CHEMISTRY ORDERABLES Performing Organization Address City/[facility]/ZIP Co de Phone Number [facility] [place] [address] * Gold Tube HOLD (06/02/2018 4:12 PM EST) Pathologist [facility] Gold Hold Sample in lab. [facility] Blood specimen (specimen) Venous Draw / Unknown 06/02/2018 4:12 PM EST 06/02/2018 4:19 PM EST Lawrence Flores MD CHEMISTRY ORDERABLE S Performing Organization Address City/[facility]/ZIP Co de Phone Number [facility] [place] [address] * (ABNORMAL) Differential, Automated (06/02/2018 4:12 PM EST) Neutrophil % 82.9 % [facility] Neutrophil Absolute 5.08 1.70 - 6.10 x10(3)/mc L [facility] Lymph % 9.5 % [facility] Lymphocytes Abs 0.6(L) 0.9 - 3.2 x10(3)/[facility] Monocyte % 6.4 % [facility] Monocyte Abs 0.4 0.3 - 0.9 x10(3)/[facility] Eos % 0.5 % [facility] Eosinophils Abs 0.0 0.0 - 0.4 x10(3)/[facility] Basophil % 0.2 % [facility] Baso Absolute 0.0 0.0 - 0.1 x10(3)/[facility] Immature Gran % 0.50 % [facility] Comment: Immature granulocytes(IG's)percentage and absolute count will include metamyelocytes, myelocytes, and promyelocytes. Blood smears from CBCs yielding IG's will be scanned manually for concordance. If this scan disagrees with the automated IG or if promyelocytes are noted, a manual differential will be performed. Immature Gran Absolute 0.03 0.00 - 0.04 x10(3)/[facility] Blood specimen (specimen) 06/02/2018 4:12 PM EST 06/02/2018 4:18 PM EST Narrative Resulting Agency Comment Spec In Lab Lawrence Flores MD HEMATOLOGY ORDERABL ES [facility] [place] [address] * (ABNORMAL) Hemogram (06/02/2018 4:12 PM EST) White Blood Cell 6.1 4.0 - 9.5 x10(3)/[facility] Red Blood Cell 2.77(L) 4.58 - 5.54 x10(6)/[facility] Hemoglobin 8.6(L) 13.7 - 16.5 gm/dL [facility] Hematocrit 26.1(L) 40.5 - 48.5 % [facility] Mean Cell Volume 94.2(H) 82.9 - 93.1 fL [facility] Mean Cell Hemoglobin 31.0 27.5 - 32.1 pg [facility] Mean Cell Hemoglobin Concentration 33.0 32.0 - 35.7 gm/dL [facility] Platelet 131(L) 145 - 357 x10(3)/mc L [facility] RDW Standard Deviation 51.0(H) 36.0 - 45.0 fL [facility] RDW coefficient of variation 14.6(H) 11.4 - 13.8 % [facility] Mean Platelet Volume 8.4 7.6 - 12.9 [facility] NRBC% auto 0.0 % [facility] NRBC Absolute 0.000 0.000 - 0.000 x10(3)/mc L [facility] Blood specimen (specimen) 06/02/2018 4:12 PM EST 06/02/2018 4:18 PM EST Narrative Resulting Agency Comment Spec In Lab Lawrence Flores MD HEMATOLOGY ORDERABL ES [facility] [place] [address] * Ethanol Level (06/02/2018 4:12 PM EST) Ethanol <100 <=99 mg/L [facility] Comment: Greater than 800 mg/L (0.08%) should be considered intoxicated. 3400 to 4500 mg/L (0.34 - 0.45%) is considered severe intoxication. Greater than 5500 mg/L (0.55%) is usually fatal. Blood specimen (specimen) 06/02/2018 4:12 PM EST 06/02/2018 4:18 PM EST Narrative Resulting Agency Comment Spec In Lab Lawrence Flores MD CHEMISTRY ORDERABLE S Performing Organization Address [facility] Co de Phone Number [facility] [place] [address] * APTT (06/02/2018 4:12 PM EST) Partial Thromboplastin Time 27 25 - 37 sec [facility] Comment: The PTT is NOT appropriate for heparin monitoring. Use the Anti-Xa level for heparin monitoring (HEP UFH) or LMWH monitoring (HEP LMW). A PTT less than 37 seconds generally indicates adequate hemostasis. Blood specimen (specimen) 06/02/2018 4:12 PM EST 06/02/2018 4:18 PM EST Narrative Resulting Agency Comment Spec In Lab Lawrence Flores MD HEMATOLOGY ORDERABL ES Performing Organization Address [facility] Co de Phone Number [facility] [place] [address] * Prothrombin Time (06/02/2018 4:12 PM EST) Prothrombin Time 10.9 9.4 - 12.5 sec [facility] International Normalization Ratio 1.0 [facility] Comment: An INR <2.0 indicates [...] depending on clinical circumstances. Blood specimen (specimen) 06/02/2018 4:12 PM EST 06/02/2018 4:18 PM EST Narrative Resulting Agency Comment Spec In Lab Lawrence Flores MD HEMATOLOGY ORDERABL ES Performing Organization Address [facility] Co de Phone Number [facility] [place] [address] * (ABNORMAL) Basic Metabolic Panel (non-fasting) (06/02/2018 4:12 PM EST) Glucose 117 65 - 199 mg/dL [facility] Comment:Diabetes: >=200 mg/d L plus symptoms Blood Urea Nitrogen 59(H) 10 - 20 mg/dL [facility] Creatinine 3.11(H) 0.80 - 1.50 mg/dL [facility] Sodium 141 135 - 145 mmol/L [facility] Potassium 5.5(H) 3.5 - 5.0 mmol/L [facility] Comment: Please note: ??Patients with WBC >100,000 may have falsely elevated Potassium levels. ??For accurate Potassium quantification in these patients send serum separator tube (gold top) for subsequent determinations. ??Contact the Clinical Chemistry Laboratory if there are any questions. Chloride 108(H) 98 - 107 mmol/L [facility] Carbon Dioxide 15(L) 22 - 31 mmol/L [facility] Anion Gap 18(H) 5 - 15 mmol/L [facility] Calcium 8.0(L) 8.5 - 10.5 mg/dL [facility] Est Glomerular Filtration Rate 21(L) >=60 mL/min/1. 73 m?? [facility] Comment: The eGFR was calculated using the CKD-EPI equation. As with all creatinine based estimates of kidney function, eGFR values calculated with the CKD-EPI equation are not accurate in patients with acute kidney failure, extremes of body mass or the acutely ill. [email or web address] Points/[facility] CITYnkf eGFR 25(L) >=60 mL/min/1. 73 m?? [facility] Comment: The eGFR was calculated using the CKD-EPI equation. As with all creatinine based estimates of kidney function, eGFR values calculated with the CKD-EPI equation are not accurate in patients with acute kidney failure, extremes of body mass or the acutely ill. [email or web address] Blood specimen (specimen) 06/02/2018 4:12 PM EST 06/02/2018 4:18 PM EST Narrative Resulting Agency Comment Spec In Lab Lawrence Flores MD CHEMISTRY ORDERABLE S [facility] [address] [place] [address] documented in this encounter Visit Diagnoses Diagnosis IgA nephropathy Nephritis and nephropathy, not specified as acute or chronic, with unspecified pathological lesion in kidney Subarachnoid hemorrhage Swelling Edema Deep vein thrombosis (DVT) of other vein of left lower extremity, unspecified chronicity Subarachnoid hemorrhage Subarachnoid hemorrhage documented in this encounter Admitting Diagnoses Diagnosis Subarachnoid hemorrhage documented in this encounter Administered Medications Inactive Administered Medications - up to 3 most recent administrations Medication Order MAR Action Action Date Dose Rate Site acetaminophen (TYLENOL) tablet 1,000 mg 1,000 mg, Oral, EVERY 6 HOURS, First dose on Mariza 06/02/18 at 1846, Until Discontinued, Maximum dose of acetaminophen is 4000 mg from all sources in 24 hours., Routine Given 06/04/2018 10:03 AM EST 1,000 mg Given 06/03/2018 8:57 PM EST 1,000 mg Given 06/03/2018 2:37 PM EST 1,000 mg allopurinol (ZYLOPRIM) tablet 100 mg 100 mg, Oral, DAILY, First dose (after last modification) on 06/04/18 at 0900, Until Discontinued, Routine Given 06/04/2018 10:03 AM EST 100 mg allopurinol (ZYLOPRIM) tablet 150 mg 150 mg, Oral, DAILY, First dose on Mariza 06/02/18 at 1846, Until Discontinued, Routine Given 06/03/2018 9:22 AM EST 150 mg Given 06/02/2018 8:54 PM EST 150 mg amLODIPine (NORVASC) tablet 2.5 mg 2.5 mg, Oral, DAILY, First dose on Mariza 06/02/18 at 1846, Until Discontinued, Routine Given 06/04/2018 10:02 AM EST 2.5 mg Given 06/03/2018 8:44 AM EST 2.5 mg Given 06/02/2018 8:10 PM EST 2.5 mg cephalexin (KEFLEX) capsule 500 mg 500 mg, Oral, 2 TIMES DAILY, 160 doses, First dose on Wed06/03/18 at 0900, Last dose on Wed08/21/18 at 2100, Routine, Indication for (Active or Suspected): Prophylaxis / previous wound infection at faciotomy site. needs 3 months starting 11/13 Given 06/04/2018 10:03 AM EST 500 mg Given 06/03/2018 8:59 PM EST 500 mg Given 06/03/2018 8:50 AM EST 500 mg dilTIAZem (CARDIZEM) 12 mg/mL pedi oral liquid 30 mg 30 mg, Oral, EVERY 6 HOURS SCHEDULED, First dose on Mariza 06/02/18 at 2000, Until Discontinued Given 06/03/2018 2:36 PM EST 30 mg Given 06/03/2018 9:24 AM EST 30 mg Given 06/03/2018 2:01 AM EST 30 mg dilTIAZem (CARDIZEM) 12 mg/mL pedi oral liquid 30 mg 30 mg, Oral, EVERY 6 HOURS SCHEDULED, First dose (after last reorder) on Wed06/03/18 at 2200, Until Discontinued Given 06/04/2018 10:01 AM EST 30 mg Given 06/04/2018 4:30 AM EST 30 mg Given 06/03/2018 10:02 PM EST 30 mg docusate sodium (COLACE) capsule 100 mg 100 mg, Oral, 2 TIMES DAILY PRN, Starting on Wed06/02/18 at 1844, Until 06/04/18 at 1530, Constipation, Routine Given 06/02/2018 8:10 PM EST 100 mg famotidine (PEPCID) injection 20 mg 20 mg, Intravenous, 2 TIMES DAILY, First dose on Mariza 06/02/18 at 2100, Until Discontinued, Routine famotidine (PEPCID) tablet 20 mg 20 mg, Oral, 2 TIMES DAILY, First dose on Mariza 06/02/18 at 2100, Until Discontinued, If unable to take PO, may give IV, Routine Given 06/04/2018 10:03 AM EST 20 mg Given 06/03/2018 8:59 PM EST 20 mg Given 06/03/2018 8:50 AM EST 20 mg heparin (Porcine) subcutaneous injection 5,000 Units 5,000 Units, Subcutaneous, EVERY 8 HOURS SCHEDULED, First dose on Wed06/03/18 at 1715, Until Discontinued, Routine Given 06/04/2018 5:28 AM EST 5,000 Units Left Lower Quadrant Given 06/03/2018 9:18 PM EST 5,000 Units L eft Lower Quadrant Given 06/03/2018 5:20 PM EST 5,000 Units hydrALAZINE (APRESOLINE) tablet 50 mg 50 mg, Oral, 3 TIMES DAILY, First dose on Mariza 06/02/18 at 2100, Until Discontinued, Take with Food, Routine Given 06/04/2018 10:02 AM EST 50 mg Given 06/03/2018 8:59 PM EST 50 mg Given 06/03/2018 3:04 PM EST 50 mg labetalol (NORMODYNE,TRANDATE) injection 10 mg 10 mg, Intravenous, EVERY 4 HOURS PRN, Starting on Wed06/02/18 at 1844, Until 06/04/18 at 1530, High Blood Pressure, For SBP > 160, hold if HR < 60, Routine Given 06/02/2018 7:25 PM EST 10 mg Given 06/02/2018 6:48 PM EST 10 mg levETIRAcetam (KEPPRA) tablet 500 mg 500 mg, Oral, 2 TIMES DAILY, First dose on Wed06/02/18 at 2100, Until Discontinued, Routine Given 06/04/2018 10:02 AM EST 500 mg Given 06/03/2018 8:58 PM EST 500 mg Given 06/03/2018 8:46 AM EST 500 mg levothyroxine (SYNTHROID) tablet 100 mcg 100 mcg, Oral, DAILY, First dose on Wed06/02/18 at 1846, Until Discontinued, Routine Given 06/04/2018 10:02 AM EST 100 mcg Given 06/03/2018 9:00 AM EST 100 mcg losartan (COZAAR) tablet 100 mg 100 mg, Oral, EVERY MORNING, First dose (after last modification) on 06/04/18 at 0700, Until Discontinued, Routine Given 06/04/2018 10:07 AM EST 100 mg losartan (COZAAR) tablet 50 mg 50 mg, Oral, EVERY MORNING, First dose on Wed06/03/18 at 0700, Until Discontinued, Routine Given 06/03/2018 8:45 AM EST 50 mg metoprolol tartrate (LOPRESSOR) tablet 50 mg 50 mg, Oral, 3 TIMES DAILY, First dose on Mariza 06/02/18 at 2100, Until Discontinued, Routine Given 06/04/2018 10:01 AM EST 50 mg Given 06/03/2018 8:58 PM EST 50 mg Given 06/03/2018 2:37 PM EST 50 mg mycophenolate (CELLCEPT) capsule 250 mg 250 mg, Oral, 2 TIMES DAILY, First dose on Mariza 06/02/18 at 2100, Until Discontinued, DO NOT CRUSH OR OPEN Administer to patient on empty stomach (1 hour before or two hours after a meal)., Routine Given 06/04/2018 10:02 AM EST 250 mg Given 06/03/2018 8:58 PM EST 250 mg Given 06/03/2018 8:49 AM EST 250 mg pantoprazole (PROTONIX) injection 40 mg 40 mg, Intravenous, DAILY, First dose on Mariza 06/02/18 at 1846, Until Discontinued Given 06/03/2018 8:55 AM EST 40 mg Given 06/02/2018 8:09 PM EST 40 mg senna-docusate (PERICOLACE) 8.6-50 mg per tablet 2 tablet 2 tablet, Oral, 2 TIMES DAILY, First dose on Mariza 06/02/18 at 2100, Until Discontinued, Routine Given 06/04/2018 10:01 AM EST 2 tablets Given 06/02/2018 8:49 PM EST 2 tablets sodium bicarbonate tablet 1,300 mg 1,300 mg, Oral, 3 TIMES DAILY, First dose (after last modification) on Wed06/03/18 at 2100, Until Discontinued, Routine Given 06/04/2018 10:02 AM EST 1,300 mg Given 06/03/2018 9:00 PM EST 1,300 mg sodium bicarbonate tablet 650 mg 650 mg, Oral, 3 TIMES DAILY, First dose on Mariza 06/02/18 at 2100, Until Discontinued, Routine Given 06/03/2018 2:37 PM EST 650 mg Given 06/03/2018 8:55 AM EST 650 mg Given 06/02/2018 8:54 PM EST 650 mg sodium chloride 0.9 % flush 5 mL 5 mL, Intravenous, 2 TIMES DAILY, First dose on Mariza 06/02/18 at 2100, Until Discontinued, Recovery (Recovery-Hospital Unit), Routine Given 06/04/2018 10:04 AM EST 5 mLs Given 06/03/2018 9:22 PM EST 5 mLs Given 06/03/2018 8:56 AM EST 5 mLs sodium chloride 0.9% infusion 75 mL/hr, Intravenous, CONTINUOUS, Starting on Mariza 06/02/18 at 1846, Until Wed06/03/18 at 1037, Recovery (Recovery-Hospital Unit) New Bag 06/02/2018 9:00 PM EST 75 mL/hr 75 mL/ hr tacrolimus (PROGRAF) capsule 0.5 mg 0.5 mg, Oral, DAILY, First dose (after last modification) on 06/04/18 at 0900, Until Discontinued, Routine Given 06/04/2018 10:03 AM EST 0.5 mg tacrolimus (PROGRAF) capsule 1 mg 1 mg, Oral, NIGHTLY, First dose on Mariza 06/02/18 at 2100, Until Discontinued, Routine Given 06/03/2018 9:00 PM EST 1 mg Given 06/02/2018 8:49 PM EST 1 mg tacrolimus (PROGRAF) capsule 1.5 mg 1.5 mg, Oral, DAILY, First dose on Wed06/03/18 at 0900, Until Discontinued, Routine Given 06/03/2018 8:4 8 AM EST 1.5 mg documented in this encounter Active and Recently Administered Medications Times are shown in EST. Scheduled Medication Order 06/02/2018 06/03/2018 06/04/2018 acetaminophen (TYLENOL) tablet 1,000 mg 1,000 mg, Oral, EVERY 6 HOURS, First dose on Mariza 06/02/18 at 1846, Until Discontinued, Maximum dose of acetaminophen is 4000 mg from all sources in 24 hours., Routine 2008 (Given - Provider: Nayeli García RN) 020 (Given - Provider: Nayeli García RN)0843 (Given - Provider: Camryn Elena)143 (Given - Provider: Camryn Elena)2056 (Given - Provider: Cally Matthew RN) 020 (Not Given - Provider: Cally Matthew RN - Reason: See comment - Comment: pt sleeping)1003 (Given - Provider: Janki Saab RN) allopurinol (ZYLOPRIM) tablet 100 mg 100 mg, Oral, DAILY, First dose (after last modification) on 06/04/18 at 0900, Until Discontinued, Routine 100 (Given - Provider: Janki Saab RN) allopurinol (ZYLOPRIM) tablet 150 mg (CANCELED) 150 mg, Oral, DAILY, First dose on Mariza 06/02/18 at 1846, Until Discontinued, Routine 2053 (Given - Provider: Nayeli García RN) 09 (Given - Provider: Camryn Elena) amLODIPine (NORVASC) tablet 2.5 mg 2.5 mg, Oral, DAILY, First dose on Mariza 06/02/18 at 1846, Until Discontinued, Routine 2009 (Given - Provider: Nayeli García RN) 0844 (Given - Provider: Camryn Elena) 1002 (Given - Provider: Janki Saab, SAVANNA) cephalexin (KEFLEX) capsule 500 mg 500 mg, Oral, 2 TIMES DAILY, 160 doses, First dose on Wed06/03/18 at 0900, Last dose on Wed08/21/18 at 2100, Routine, Indication for (Active or Suspected): Prophylaxis / previous wound infection at faciotomy site. needs 3 months starting 05/24 0850 (Given - Provider: Camryn Elena)2058 (Given - Provider: Cally Matthew RN) 100 (Given - Provider: Janki Saab, SAVANNA) dilTIAZem (CARDIZEM) 12 mg/mL pedi oral liquid 30 mg (CANCELED) 30 mg, Oral, EVERY 6 HOURS SCHEDULED, First dose on Mariza 06/02/18 at 2000, Until Discontinued 2048 (Given - Provider: Naeyli García RN) 0201 (Given - Provider: Nayeli García RN)0924 (Given - Provider: Camryn Elena)1436 (Given - Provider: Camryn Elena) dilTIAZem (CARDIZEM) 12 mg/mL pedi oral liquid 30 mg 30 mg, Oral, EVERY 6 HOURS SCHEDULED, First dose (after last reorder) on Wed06/03/18 at 2200, Until Discontinued 2201 (Given - Provider: Cally Matthew RN) 0430 (Given - Provider: Cally Matthew, SAVANNA)1001 (Given - Provider: Janki Saab, SAVANNA) famotidine (PEPCID) injection 20 mg(Linked Group 1) 20 mg, Intravenous, 2 TIMES DAILY, First dose on Mairza 06/02/18 at 2100, Until Discontinued, Routine 2048 (See Alternative - Provider: Nayeli García RN) 0850 (See Alternative - Provider: Camryn Elena)2058 (See Alternative - Provider: Cally Matthew RN) 1003 (See Alternative - Provider: Janki Saab, SAVANNA) famotidine (PEPCID) tablet 20 mg(Linked Group 1) 20 mg, Oral, 2 TIMES DAILY, First dose on Wed06/02/18 at 2100, Until Discontinued, If unable to take PO, may give IV, Routine 2048 (Given - Provider: Nayeli García RN) 0850 (Given - Provider: Camryn Elena)2058 (Given - Provider: Cally Matthew RN) 100 (Given - Provider: Janki Saab RN) heparin (Porcine) subcutaneous injection 5,000 Units (CANCELED) 5,000 Units, Subcutaneous, EVERY 8 HOURS SCHEDULED, First dose on Wed06/03/18 at 1715, Until Discontinued, Routine 1719 (Given - Provider: Erika Vivas RN)2117 (Given - Provider: Cally Matthew RN) 0528 (Given - Provider: Cally Matthew RN) hydrALAZINE (APRESOLINE) tablet 50 mg 50 mg, Oral, 3 TIMES DAILY, First dose on Wed06/02/18 at 2100, Until Discontinued, Take with Food, Routine 2053 (Given - Provider: Nayeli García RN) 0923 (Given - Provider: Camryn Elena)1504 (Given - Provider: Erika Vivas RN)2058 (Given - Provider: Cally Mathtew, SAVANNA) 1002 (Given - Provider: Janki Saab, SAVANNA) levETIRAcetam (KEPPRA) tablet 500 mg 500 mg, Oral, 2 TIMES DAILY, First dose on Wed06/02/18 at 2100, Until Discontinued, Routine 2048 (Given - Provider: Nayeli García RN) 0846 (Given - Provider: Camryn Elena)2057 (Given - Provider: Cally Matthew RN) 1002 (Given - Provider: Janki Saab RN) levothyroxine (SYNTHROID) tablet 100 mcg 100 mcg, Oral, DAILY, First dose on Wed06/02/18 at 1846, Until Discontinued, Routine 184 (Not Given - Provider: Nayeli García RN - Reason: Patient/family refused - Comment: took this AM at facility) 0900 (Given - Provider: Camryn Elena - Comment: LABEL SMEARED, DOES NOT SCAN) 1002 (Given - Provider: Janki Saab RN) losartan (COZAAR) tablet 100 mg 100 mg, Oral, EVERY MORNING, First dose (after last modification) on Wed06/04/18 at 0700, Until Discontinued, Routine 1007 (Given - Provider: Janki Saab RN) losartan (COZAAR) tablet 50 mg (CANCELED) 50 mg, Oral, EVERY MORNING, First dose on Wed06/03/18 at 0700, Until Discontinued, Routine 08 (Given - Provider: Camryn Elena) metoprolol tartrate (LOPRESSOR) tablet 50 mg 50 mg, Oral, 3 TIMES DAILY, First dose on Mariza 06/02/18 at 2100, Until Discontinued, Routine 2048 (Given - Provider: Nayeli García RN) 0845 (Given - Provider: Camryn Elena)143 (Given - Provider: Camryn Elena)2057 (Given - Provider: Cally Matthew, SAVANNA) 1001 (Given - Provider: Janki Saab RN) mycophenolate (CELLCEPT) capsule 250 mg 250 mg, Oral, 2 TIMES DAILY, First dose on Mariza 06/02/18 at 2100, Until Discontinued, DO NOT CRUSH OR OPEN Administer to patient on empty stomach (1 hour before or two hours after a meal)., Routine 2048 (Given - Provider: Nayeli García RN) 0849 (Given - Provider: Camryn Elena)2057 (Given - Provider: Cally Matthew, SAVANNA) 1002 (Given - Provider: Janki Saab RN) pantoprazole (PROTONIX) injection 40 mg (CANCELED) 40 mg, Intravenous, DAILY, First dose on Mariza 06/02/18 at 1846, Until Discontinued 2008 (Given - Provider: Nayeli García RN) 0855 (Given - Provider: Camryn Elena) senna-docusate (PERICOLACE) 8.6-50 mg per tablet 2 tablet 2 tablet, Oral, 2 TIMES DAILY, First dose on Mariza 06/02/18 at 2100, Until Discontinued, Routine 2048 (Given - Provider: Nayeli García RN) 0900 (Not Given - Provider: Camryn Elena - Reason: Patient/family refused)2099 (Not Given - Provider: Cally Matthew RN - Reason: Patient/family refused) 100 (Given - Provider: Janki Saab RN) sodium bicarbonate tablet 1,300 mg 1,300 mg, Oral, 3 TIMES DAILY, First dose (after last modification) on Wed06/03/18 at 2100, Until Discontinued, Routine 2099 (Given - Provider: Cally Matthew RN) 1002 (Given - Provider: Janki Saab RN) sodium bicarbonate tablet 650 mg (CANCELED) 650 mg, Oral, 3 TIMES DAILY, First dose on Mariza 06/02/18 at 2100, Until Discontinued, Routine 2053 (Given - Provider: Nayeli García RN) 0855 (Given - Provider: Camryn Elena)143 (Given - Provider: Camryn Elena) sodium chloride 0.9 % flush 5 mL 5 mL, Intravenous, 2 TIMES DAILY, First dose on Mariza 06/02/18 at 2100, Until Discontinued, Recovery (Recovery-Hospital Unit), Routine 2010 (Given - Provider: Nayeli García RN) 0856 (Given - Provider: Camryn Elena)2121 (Given - Provider: Cally Matthew RN) 100 (Given - Provider: Janki Saab RN) tacrolimus (PROGRAF) capsule 0.5 mg 0.5 mg, Oral, DAILY, First dose (after last modification) on Wed06/04/18 at 0900, Until Discontinued, Routine 1002 (Given - Provider: Janki Saab RN) tacrolimus (PROGRAF) capsule 1 mg 1 mg, Oral, NIGHTLY, First dose on Mariza 06/02/18 at 2100, Until Discontinued, Routine 2048 (Given - Provider: Nayeli García RN) 2099 (Given - Provider: Cally Matthew RN) tacrolimus (PROGRAF) capsule 1.5 mg (CANCELED) 1.5 mg, Oral, DAILY, First dose on Wed06/03/18 at 0900, Until Discontinued, Routine 0848 (Given - Provider: Camryn Elena) Continuous Medication Order 06/02/2018 06/03/2018 06/04/2018 sodium chloride 0.9% infusion (CANCELED) 75 mL/hr, Intravenous, CONTINUOUS, Starting on Mariza 06/02/18 at 1846, Until 06/03/18 at 1037, Recovery (Recovery-Hospital Unit) 2100 (New Bag - Provider: Nayeli García, RN) PRN Medication Order 06/02/2018 06/03/2018 06/04/2018 docusate sodium (COLACE) capsule 100 mg 100 mg, Oral, 2 TIMES DAILY PRN, Starting on Mariza 06/02/18 at 1844, Until 06/04/18 at 1530, Constipation, Routine 2010 (Given - Provider: Nayeli García, SAVANNA) labetalol (NORMODYNE,TRANDATE) injection 10 mg 10 mg, Intravenous, EVERY 4 HOURS PRN, Starting on Mariza 06/02/18 at 1844, Until 06/04/18 at 1530, High Blood Pressure, For SBP > 160, hold if HR < 60, Routine 1848 (Given - Provider: Concepcion Bowen, SAVANNA)1925 (Given - Provider: Concepcion Bowen, SAVANNA) lidocaine (XYLOCAINE) 10 mg/mL (1 %) injection 3 mg 3 mg (0.3 mL), Subcutaneous, ONCE PRN, 1 dose, Starting on Mariza 06/02/18 at 1844, Until 06/04/18 at 1530, for discomfort with PIV insertion, Recovery (Recovery-Hospital Unit), Routine nalOXone (NARCAN) injection 0.2 mg 0.2 mg, Intravenous, EVERY 1 MIN PRN, Starting on Mariza 06/02/18 at 1844, Until 06/04/18 at 1530, Opioid Reversal, If respiratory rate less than 6 OR the patient is unable to arouse OR SpO2 is declining, Give for respiratory rate of less than or equal to 6 and patient is heavily sedated or unarousable. May repeat every 60 seconds to increase respiratory rate. DO NOT exceed 2 mg total dose., Recovery (Recovery-Hospital Unit), Routine sodium chloride 0.9 % flush 5-20 mL 5-20 mL, Intravenous, EVERY 1 MIN PRN, Starting on Mariza 06/02/18 at 1844, Until 06/04/18 at 1530, flush, Flush pertains to all indwelling lines. 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
--- OUTSIDE RECORDS SUMMARY | 2024-04-22 10:56 | XMS_ITS | Encounter Summary ---
Author Organization [facility] Address [facility] [place] [address] Care Team Providers Care Email Campaign Manager Name Role Phone AlfredoCarroll allison Primary Care Provider [phone] Encounter Details Date Type Department Care Team (Late st Contact Info) Description 06/05/2018 [place] [address] Kori Zheng MD [facility] [place] [address] Social History Tobacco Use Types Packs/Day Years [...] Miscellaneous Notes * Telephone Encounter - Kori Zheng - 06/05/2018 6:[address] Sandy calling for consultation from [facility] 57 yo M discahrged from yesterday s/p fall and SAH sent from rehab facility for transient LUE weakness and word finding difficulties of unclear duration. Resolved by the time of presentation. On AC for DVT which was held He is back to baseline. Hypertensive. CTH shows interval progression of R frontoparietal hemorrhage with slight edema. Symptoms may be more likely related to seizure in the setting of SAH. Recommended increasing the dose of Keppra (per discharge summary medication reconciliation Take 500 mg by mouth 2 times daily. Take 500 mg every morning and 250 mg every morning.). Reasonable to increase to 1g BID for seizure ppx. Caller will call back if there are additional questions/concerns. documented in this encounter Plan of Treatment Not on file documented as of this encounter Visit Diagnoses Not on filedocumented in this encounter Care Teams Email Campaign Manager Relationship Specialty Start Date End Date Carroll Fuentes DO [address] [place] [address] PCP - General 09/23/11 10/20/22 documented as of this encounter
--- OUTSIDE RECORDS SUMMARY | 2024-04-22 10:56 | XMS_ITS | Encounter Summary ---
Author Organization [facility] Address [facility] [place] [address] Care Team Providers Care Pipe Organ Mechanic Name Role Phone AlfredoCarroll allison Primary Care Provider Encounter Details Date Type Department Care Team (Late st Contact Info) Description 07/29/2018 [place] [id number] Odalis Jacob Social History Tobacco Use Types [...] * Telephone Encounter - Radha Duron - 08/03/2018 5:57 PM EST Brother was transferred to nurse station to request Dr. Stout to be paged to discuss pt's CT results. * Telephone Encounter - Odalis Jacob - 08/01/2018 10:50 AM EST Pt is currently admitted (07/29) = in dialysis and CT is being completed late. DPS appt cancelled. Send note to DPS to review film when complete and call brother Lucas to update (DPR on file) ~~~~~~~~~~~~~~~~~~~~~~~~~~~~~~~~~~~~~~~~~~~~~~~~~~~~~~~~~~~~~~~~~~~ Anand, Please review CT and call brother with updated results and next step. Thank you. sylvia * Telephone Encounter - Anabella Norwood - 08/01/2018 10:29 AM EST Pt scheduled for CT today, push to DPS once results are available for review * Telephone Encounter - Odalis Jacob - 07/29/2018 11:49 AM EST Pt brother called from [place] to schedule f/u w DPS = coordinate w appts previously scheduled Send images to DPS for review and results call ~~~~~~~~~~~~~~~~~~~~~~~~~~~~~~~~~~~~~~~~~~~~~~~~~~~~~~~~~~~~~~~~~~~ Patient needs f/u appointment(s): ?? With AP on/around 07/03-07/16 4-6wk OV, tSAH s/p likely seizure and fall , CT prior ~~~~~~~~~~~~~~~~~~~~~~~~~~~~~~~~~~~~~~~~~~~~~~~~~~~~~~~~~~~~~~~~~~~~ Called [facility] to confirm transport time adjustment = LM for Day [nurse station] ?? documented in this encounter Plan of Treatment Not on file documented as of this encounter Visit Diagnoses Not on filedocumented in this encounter Care Teams Pipe Organ Mechanic Relationship Specialty Start Date End Date Carroll Fuentes DO [address] [facility] [address] [place] [address] PCP - General 09/23/11 10/20/22 documented as of this encounter
--- OUTSIDE RECORDS SUMMARY | 2024-04-22 10:56 | XMS_ITS | Encounter Summary ---
Author Organization [facility] [place] [address] Care Team Providers Care Automatic Equipment Technician Name Role Phone AlfredoCarroll allison Primary Care Provider [phone] Encounter Details Date Type Department Care Team (Late st Contact Info) Description 06/05/2018 Telephone [place] [address] Damián Richter MD [facility] [place] [address] Social History Tobacco Use Types Packs/Day Years [...] Telephone Encounter - Damián Richter MD - 06/05/2018 5:23 PM EST OSH: [facility]; [facility] Provider: Kurt Sandy Received a call the transfer center today concerning Adama Ram, 57-year-old gentleman with a history of renal transplant, epilepsy, and recent admission for fall with traumatic right frontal contusion. He was recently discharged from the [facility] trauma service to a rehab facility. Per report today that he had word finding difficulty and left upper extremity weakness which resolved spontaneously. He was transported to local emergency department for evaluation, he was found to have slightly hypertensive blood pressure 170/100, and to be slightly bradycardic. He had a repeat noncontrast head CT which was compared to his interval Noncon head CT from 06/03/2018 and found to be similar in appearanc e. Given that the patient's symptoms resolved there was suspicion for TIA, and the outside providerwas advised to consult with neurology for further evaluation. At this time there is no indication for neurosurgical intervention. All questions answered to the provider satisfaction. Neurosurgery will be available for further consultation as needed. documented in this encounter Plan of Treatment Not on file documented as of this encounter Visit Diagnoses Not on filedocumented in this encounter Care Teams Automatic Equipment Technician Relationship Specialty Start Date End Date Carroll Fuentes DO [address] [place] [address] [address] [facility] 1 [place] [address] PCP - General 09/23/11 10/20/22 documented as of this encounter
--- OUTSIDE RECORDS SUMMARY | 2024-04-22 10:56 | XMS_ITS | Encounter Summary ---
Author Organization [facility] Address [facility] [place] [address] Care Team Providers Care Curing Press Operator Name Role Phone Carroll Fuentes DO Primary Care Provider [phone] Reason for Visit * Reason Onset Date Comments Medication Refill 06/28/2018 Encounter Details Date Type Department Care Team (Late st Contact Info) Description 06/28/2018 Refill [place] [address] Anup Hawkins MD [facility] [place] [address] H/O kidney transplant Social History Tobacco Use [...] as of this encounter Visit Diagnoses Diagnosis H/O kidney transplant Kidney replaced by transplant documented in this encounter Care Teams Curing Press Operator Relationship Specialty Start Date End Date Carroll Fuentes DO [address] [place] [address] PCP - General 09/23/11 10/20/22 documented as of this encounter
--- OUTSIDE RECORDS SUMMARY | 2024-04-22 10:56 | XMS_ITS | Encounter Summary ---
Author Organization [facility] Address [facility] [place] [address] Care Team Providers Care Delivery Mgr Name Role Phone AlfredoCarroll allison Primary Care Provider [phone] Reason for Visit * Reason Comments Follow-up Encounter Details Date Type Department Care Team (Late st Contact Info) Description 06/29/2018 11:00 AM EST Office Visit [place] [address] Lucrecia Mclean, PC INSTALLATION ENGINEER [facility] [place] [address] Hospital discharge follow-up Social History Tobacco Use Types Packs/Day Years [...] as of this encounter Progress Notes * Lucrecia Mclean, CATRACHITO - 06/29/2018 11:00 AM EST Adama Ram presents today for hospital check. Adama is s/p ground level fall on 06/02/18 with thefollowing injuries identified: Subarachnoid hemorrhage Left eyebrow lac Since discharge, Adama reports he has been doing well. He denies any new area of pain, or new complaint. He is eating, moving his bowels and voiding without difficulty. He is pleased with his progressand is in good spirits today, he is accompanied by his brother. Both report that he has chronic lymphedema RUE. Review of Systems: GENERAL:denies fevers chills, fatigue, sweats, anorexia HEENT:Denies headaches, visual changes,sore throat, difficulty swallowing RESPIRATORY:Denies shortness of breath, cough, hemoptysis, or sputum production CARDIAC:Denies chest pain, dyspnea on exertion, lightheadedness, or syncopal symptoms GASTROINTESTINAL: Denies abdominal pain, nausea, vomiting, dysphagia, constipation, diarrhea, hematochezia, change in bowel habits, or jaundice GENITOURINARY:Denies dysuria, hematuria HEMATOLOGIC:Denies new bruises, bleeding or petechiae ENDOCRINE:denies polyuria,polydipsia EXAM: GEN:Well appearing, calm of affect NAD SKIN:Intact, no new areas of ecchymosis or laceration, no jaundice HEENT:sclera clear non icteric, mucous membranes are pink and moist, Left eyebrow laceration healed CARD:S1S2 rrr no cmr appreciated CHEST:Cage stable, excursion equal, respiration regular even and non labored, CTA ant/post. ABD:soft non tender, non distended, I can appreciate no areas of fullness. BACK:non tender over midline thoracic lumbar and sacral regions, negative CVAT VASC:2+palpable peripheral pulses, cap refill <2 sec, no edema, calves are soft and non tender, neg JVD at 30 degrees NEURO:Adama is AAOX3, fluent and non focal, appropriately conversant EXT:5/5 strengths, all four extremities IMPRESSION/PLAN: stable post discharge course Appropriate subspecialty follow up in place At this time, no further scheduled general surgery follow up indicated however, pt understands to feel free to call us should anything specific arise or should there be any question or concern documented in this encounter Plan of Treatment Not on file documented as of this encounter Visit Diagnoses Diagnosis Hospital discharge follow-up Other follow-up examination documented in this encounter Care Teams Delivery Mgr Relationship Specialty Start Date End Date Carroll Fuentes DO [address] [place] [address] PCP - General 09/23/11 10/20/22 documented as of this encounter
--- OUTSIDE RECORDS SUMMARY | 2024-04-22 10:56 | XMS_ITS | Encounter Summary ---
Author Organization [facility] [place] [address] Care Team Providers Care Correctional Cook Name Role Phone AlfredoCarroll allison Primary Care Provider [phone] Encounter Details Date Type Department Care Team (Late st Contact Info) Description 06/27/2018 Telephone [place] [id number] Aby Zamarripa RN Social History Tobacco Use Types Packs/Day [...] encounter Miscellaneous Notes * Telephone Encounter - Aby Dubon RN - 06/27/2018 3:16 PM EST [facility] VM left. * Telephone Encounter - Aby Dubon RN - 06/27/2018 3:16 PM EST ----- Message from Kristyn Fletcher sent at 06/27/2018 3:07 PM EST ----- Regarding: please call Fabiana from [facility] was told by Adama's brother that Dr. Hawkins recommended along time care usp for Adama. This is not the same assessment they have made. Fabiana believes he could go to a level 3 home. Wondering if we see or know something they don't and would like to discuss this before he is discharged. Fabiana's # [phone] documented in this encounter Plan of Treatment Not on file documented as of this encounter Visit Diagnoses Not on filedocumented in this encounter Care Teams Correctional Cook Relationship Specialty Start Date End Date Carroll Fuentes DO [address] [place] [address] PCP - General 09/23/11 10/20/22 documented as of this encounter
--- OUTSIDE RECORDS SUMMARY | 2024-04-22 10:56 | XMS_ITS | Encounter Summary ---
Author Organization [facility] Address [address] [facility] [place] [address] Care Team Providers Care Canopy Inspector Name Role Phone AlfredoCarroll allison Primary Care Provider Reason for Referral * Diagnostic Test (Routine) - Closed Specialty Diagnoses / Procedures Referred By Contac t Referred To Contact Radiology Diagnoses Subarachnoid hemorrhage Procedures CT Head wo Contrast (Generic) Dmitriy Hoffman [place] [address] [facility] [place] [address] Referral ID Status Reason Start Date Expiration Date V isits Requested Visits Authorized [id number] Closed Specialty Service Requested 06/24/2018 09/22/2018 1 1 Reason for Visit * Diagnostic Test (Routine) - Closed Specialty Diagnoses / Procedures Referred By Contac t Referred To Contact Radiology Diagnoses Subarachnoid hemorrhage Procedures CT Head wo Contrast (Generic) Dmitriy Hoffman [place] [address] [facility] [place] [address] Referral ID Status Reason Start Date Expiration Date V isits Requested Visits Authorized [id number] Closed Specialty Service Requested 06/24/2018 09/22/2018 1 1 Encounter Details Date Type Department Care Team (Latest Contact Info) Description 06/29/2018 10:00 AM EST - 06/29/2018 11:59 PM EST Hospital Encounter CT Scan at [facility] [place] [address] Dmitriy Hoffman APRN [facility] [place] [address] Subarachnoid hemorrhage Discharge Disposition: Home Social History Tobacco Use [...] Sig Dispensed Refills Start Date End Date dilTIAZem (CARTIA XT) 120 mg Capsule, Sust. Release 24 hrIndications:H/O kidney transplant Take 1 capsule by mouth daily. 90 capsule 3 07/01/2018 2018 hydrALAZINE (APRESOLINE) 25 mg Tablet Take 75 mg by mouth 3 times daily. 07/19/2018 furosemide (LASIX) 40 mg Tablet Take 1 tablet by mouth daily. 30 tablet 11 06/07/2018 07/19/2018 calcium carbonate 648 mg calcium Tablet Take [...] daily as needed for Constipation. 06/02/2017 07/19/2018 mycophenolate (CELLCEPT) 250 mg CapsuleIndications:S/ P kidney [...] Comments CT HEAD WO CONTRAST (GENERIC) Routine 06/29/2018 10:20 AM EST Subarachnoid hemorrhage documented in this encounter Results * CT [...] effect on the adjacent frontal lobe. The charles-white differentiation is well preserved. Scattered foci of [...] masseffect on the adjacent frontal lobe. The charles-white differentiation is wellpreserved. Scattered foci of hypoattenuation [...] AM Dmitriy Hoffman APRN IMG CT ORDERABLES documented in this encounter Visit Diagnoses Diagnosis Subarachnoid hemorrhage documented in this encounter Care Teams Canopy Inspector Relationship Specialty Start Date End Date Carroll Fuentes DO [address] [place] [address] PCP - General 09/23/11 10/20/22 documented as of this encounter
--- OUTSIDE RECORDS SUMMARY | 2024-04-22 10:56 | XMS_ITS | Encounter Summary ---
[place] [address] Care Team Providers Care Demand Equipment Repairer Name Role Phone Carroll Fuentes DO Primary Care Provider Encounter Details Date Type Department Care Team (Late st Contact Info) Description 07/28/2018 Orders Only [place] [address] Khushbu Fitzgerald RN Social History Tobacco Use Types Packs/Day [...] on filedocumented in this encounter Care Teams Demand Equipment Repairer Relationship Specialty Start Date End Date Carroll Fuentes DO [address] [place] [address] PCP - General 09/23/11 10/20/22 documented as of this encounter
--- OUTSIDE RECORDS SUMMARY | 2024-04-22 10:56 | XMS_ITS | Encounter Summary ---
Author Organization [facility] Address [facility] [place] [address] Care Team Providers Care Shear Helper Name Role Phone AlfredoCarroll allison Primary Care Provider [phone] Reason for Visit * Reason Comments Follow-up Encounter Details Date Type Department Care Team (Late st Contact Info) Description 07/19/2018 10:30 AM EST Office [place] [address] Kurt Medina MD [facility] [address] Surgical wound infection; Encounter for long-term (current) use of antibiotics; Encounter for medication monitoring Social History Tobacco Use Types Packs/Day Years [...] Sign Reading Time Taken Comments Blood Pressure 191/115 07/19/2018 10:19 AM EST Pulse - - Temperature 36.3 ??C (97.3 ??F) 07/19/2018 1 0:19 AM EST Respiratory Rate - - Oxygen Saturation - - Inhaled Oxygen Concentration - - Weight 106.3 kg (234 lb 6.4 oz) 019 10:19 AM EST Height - - Body Mass Index 33.63 06/29/2018 12:52 PM EST documented in this encounter Progress Notes * Kurt Medina MD - 07/19/2018 10:30 AM EST Infectious Disease Note Subjective: Patient is here for follow-up of antibiotic treatment for what was a possible fistula infection. He had a course of intravenous antibiotics followed by suppressive Keflex. He has been doing well with the exception of significant edema in his upper and lower extremities, worsening renal insufficiency. He denies fevers chills or sweats. He has been having some loose stools intermittently. no nausea vomiting. Most Recent Vitals: 07/19/18 1019 BP: (!) 191/115 Temp: 36.3 ??C (97.3 ??F) Gen: alert, no acute distress HEENT: no icterus, OP clear CVS: S1S2 RRR Lungs: left base rale, otherwise CTA Abd: Soft, NT, ND Ext: edema MS: Bilateral upper and lower extremity edema, he has a compression device on his left upper extremity Skin: No obvious new rash Labs: reviewed. Creatinine significantly increased Assessment: 57 year-old gentleman with history of renal transplant in 2002 on cellcept and tacrolimus who presented with ruptured left UE AVF with compartment syndrome of left forearm s/p exploration, repair, brachial artery patch angioplasty, fasciotomies and resection of left radiocephalic AVF with radial artery ligation and split thickness skin grafting and wound vac placement. He healed this relatively well, and he finished his intravenous antibiotics with vancomycin and is now on suppressive Keflex. He has had an extended course of treatment and it is not entirely clear that this originally was an infection. Given the continued risk of antibiotics in the setting of his worsening renal disease, we decided to stop his antibiotics and follow him clinically. He has had an extended course of antibiotics. He is going to be following with nephrology for his significant edema and renal insufficiency. ?? Recommendations: -Discontinue Keflex, follow clinically?? documented in this encounter Plan of Treatment Not on file documented as of this encounter Visit Diagnoses Diagnosis Surgical wound infection Other postoperative infection Encounter for long-term (current) use of antibiotics Encounter for medication monitoring Encounter for therapeutic drug monitoring documented in this encounter Care Teams Shear Helper Relationship Specialty Start Date End Date Carroll Fuentes DO [address] [place] [address] PCP - General 09/23/11 10/20/22 documented as of this encounter
--- OUTSIDE RECORDS SUMMARY | 2024-04-22 10:56 | XMS_ITS | Encounter Summary ---
Author Organization [facility] Address [facility] [place] [address] Care Team Providers Care Organic Chemist Name Role Phone AlfredoCarroll allison Primary Care Provider Encounter Details Date Type Department Care Team (Late st Contact Info) Description 08/04/2018 Telephone [place] [address] Anabella Norwood Social History Tobacco Use Types [...] Telephone Encounter - Anabella Norwood - 08/22/2018 10:35 AM EST Creating new encounter with new instructions. Closing this encounter. * Telephone Encounter - Anabella Norwood - 08/22/2018 8:05 AM EST DPS, please review CT from 08/18 and let us know how to proceed. See note attached from DY as well. Thanks * Telephone Encounter - Anabella Norwood - 08/22/2018 8:05 AM EST Dmitriy Hoffman APRN Sent: [place] August 21, 2018 ??7:52 AM To: Alexandra Huang Neurosurgery Evaporator Operator; Anand Lugo PA ?? Message Patient updated Head CT results sent along to me, it looks like we've been trying to get him in anitra appointment but haven't yet or at least I didn't see a note. Given the results of head CT we should keep trying to bring him in for follow-up. * Telephone Encounter - Anabella Norwood - 08/19/2018 9:57 AM EST DPS, imaging in [facility]. Please review and let us know how to proceed. Thank you * Telephone Encounter - Kori Hagen - 08/09/2018 10:19 AM EST Pt scheduled for CT on 08/18 at 3pm, DPS to review when complete * Telephone Encounter - Kori Hagen - 2018 2:34 PM EST Lucas Ram called from [facility] to try to coord CT on 08/18 only time available is 8am or 3pm, Lucas will call back he is going to try to change Derm appt time. * Telephone Encounter - Selma Lara - 2018 9:43 AM EST Per pt request: Please schedule CT appt on 08/18 (following Derm appt) [facility] * Telephone Encounter - Anabella Norwood - 08/05/2018 12:50 PM EST Pt admitted as of 08/05 * Telephone Encounter - Anabella Norwood - 08/04/2018 9:29 AM EST Pt admitted as of 08/04 * Telephone Encounter - Anabella Norwood - 08/04/2018 9:27 AM EST Patient needs f/u appointment(s): With AP on/around 09/04 1 month OV, s/p LEFT saSDH on routine followup CT scan following RIGHT frontal tSAH 06/02/19, [facility] * Telephone Encounter - Anabella Norwood - 08/04/2018 9:27 AM EST Inpatient Notes Received: Today Message Contents Dmitriy Hoffman, CATRACHITO Huang Neurosurgery Evaporator Operator ?? Follow-up in 4 weeks with AP with head CT. Dmitriy Zhu documented in this encounter Plan of Treatment Not on file documented as of this encounter Visit Diagnoses Not on filedocumented in this encounter Care Teams Organic Chemist Relationship Specialty Start Date End Date Carroll Fuentes DO [address] [place] [address] PCP - General 09/23/11 10/20/22 documented as of this encounter
--- OUTSIDE RECORDS SUMMARY | 2024-04-22 10:56 | XMS_ITS | Encounter Summary ---
[place] [address] Care Team Providers Care English Language Learner Tutor Name Role Phone Carroll Fuentes DO Primary Care Provider Encounter Details Date Type Department Care Team (Late st Contact Info) Description 07/27/2018 Orders Only Nephrology [place] [address] Khushbu Fitzgerald, SAVANNA CKD (chronic kidney disease) stage 5, GFR [...] as of this encounter Visit Diagnoses Diagnosis CKD (chronic kidney disease) stage 5, GFR less than 15 ml/min Chronic kidney disease, Stage V documented in this encounter Care Teams English Language Learner Tutor Relationship Specialty Start Date End Date Carroll Fuentes DO [address] [place] [address] PCP - General 09/23/11 10/20/22 documented as of this encounter
--- OUTSIDE RECORDS SUMMARY | 2024-04-22 10:56 | XMS_ITS | Encounter Summary ---
Author Organization [facility] [place] [address] Care Team Providers Care Application Support Analyst Name Role Phone AlfredoCarroll allison Primary Care Provider [phone] Encounter Details Date Type Department Care Team (Latest Contact Info) Description 07/19/2018 10:00 AM EST Laboratory Appointment Lab [address] [place] [address] S/P kidney transplant; H/O kidney transplant Social History Tobacco Use [...] Associated Diagnosis Comments URINALYSIS MICROSCOPIC EXAM STAT 07/19/2018 9:47 AM EST PROTEIN/CREATININE RATIO, URINE STAT 07/19/2018 9:47 AM EST S/P kidney transplant URINALYSIS WITH REFLEX CULTURE STAT 07/19/2018 9:47 AM EST H/O kidney transplant SCAN, PERIPHERAL BLOOD STAT 9 9:41 AM EST HEMOGRAM STAT 07/19/2018 9:41 AM EST S/P kidney transplant DIFFERENTIAL, AUTOMATED STAT 07/19/2018 9:41 AM EST S/P kidney transplant TACROLIMUS LEVEL STAT 07/19/2018 9:41 AM EST H/O kidney transplant IRON AND TIBC STAT 07/19/2018 9:41 AM EST H/O kidney transplant RETICULOCYTE COUNT STAT 07/19/2018 9: 41 AM EST H/O kidney transplant CBC (WITH DIFF) STAT 07/19/2018 9:41 AM EST S/P kidney transplant URIC ACID STAT 07/19/2018 9:41 AM EST S/P kidney transplant PHOSPHORUS STAT 07/19/2018 9:41 AM EST S/P kidney transplant MAGNESIUM STAT 07/19/2018 9:41 AM EST S/P kidney transplant FOLATE, SERUM STAT 07/19/2018 9:41 AM EST H/O kidney transplant FERRITIN STAT 07/19/2018 9:41 AM EST H/O kidney transplant CHOLESTEROL, TOTAL STAT 07/19/2018 9: 41 AM EST S/P kidney transplant COMPREHENSIVE METABOLIC PANEL STAT 07/19/2018 9:41 AM EST S/P kidney transplant BASIC METABOLIC PANEL STAT 07/19/2018 9:41 AM EST S/P kidney transplant documented in this encounter Results * (ABNORMAL) Urinalysis Microscopic Exam (07/19/2018 9:47 AM EST) RBC, Urine 1 0 - 3 /HPF [facility] WBC, Urine 2 0 - 3 /HPF [facility] Bacteria, Urine Occasional (A) None /HPF [facility] Squamous Epithelial Cells Raw Data, Urine 1 <=4 /HPF [facility] Renal Epithelial Cells, Urine <1(H) <=0 /HPF [facility] Hyaline Casts, Urine 16(H) 0 - 2 /LPF [facility] Granular Casts, Urine 7(H) <=0 /LPF [facility] Urine specimen obtained by clean catch procedure (specimen) 07/19/2018 9:47 AM EST 07/19/2018 9:58 AM EST Narrative Resulting Agency Comment Spec In Lab Anup Hawknis MD URINE ORDERABLES Performing Organization Address City/State/[facility] Co de Phone Number [facility] [place] [address] * (ABNORMAL) Urinalysis with reflex Culture (07/19/2018 9:47 AM EST) Glucose, Urine Dipstick 50(A) Negative mg/dL [facility] Protein, Urine Dipstick >=500(A) Negative mg/dL [facility] Bilirubin, Urine Dipstick Negative Negative mg/dL [facility] Comment: Clinical correlation required for positive Urine Bilirubin results as false positive may occur with some drugs and drug related products. If a false positive is suspected a serum total bilirubin should be considered if clinically indicated. Urobilinogen, Urine Dipstick Normal Normal mg/dL [facility] pH, Urn (dipstick) 6.0 5.0 - 8.0 [facility] Blood, Urine Dipstick Negative Negative mg/dL [facility] Ketone, Urine Dipstick Negative Negative mg/dL [facility] Nitrite, Urine Dipstick Negative Negative [facility] Leukocytes, Urine Dipstick Negative Negative [facility] Appearance, Urine Dipstick Clear Clear [facility] Specific [place] Urine Automated 1.023 1.002 - 1.030 [facility] Color, Urine Dipstick Yellow Yellow [facility] Reflex to Culture No [facility] Urine specimen obtained by clean catch procedure (specimen) 07/19/2018 9:47 AM EST 07/19/2018 9:58 AM EST Narrative Resulting Agency Comment Spec In Lab Anup Hawkins MD URINE ORDERABLES Performing Organization Address [facility] de Phone Number [facility] [place] [address] * (ABNORMAL) Protein/Creatinine Ratio, urine (07/19/2018 9:47 AM EST) Pathologist [facility] Creatinine, Urine 105 mg/dL [facility] Protein, Urine 1,716(H) 0 - 12 mg/dL [facility] Comment:verified by dilution Protein / Creatinine Ratio, Urine 16.3 ratio [facility] Urine specimen (specimen) 07/19/2018 9:47 AM EST 07/19/2018 9:59 AM EST Narrative Resulting Agency Comment Spec In Lab Anup Hawkins MD URINE ORDERABLES Performing Organization Address [facility] Number [facility] [place] [address] * Scan, Peripheral Blood (07/19/2018 9:41 AM EST) Plat estimate Normal [facility] RBC Morphology Abnormal [facility] Microcyte 1-5 /HPF [facility] Ovalocytes 1-5 /HPF [facility] Yovanny Cells 1-5 /HPF [facility] Blood specimen (specimen) 07/19/2018 9:41 AM EST 07/19/2018 9:54 AM EST Narrative Resulting Agency Comment Spec In Lab Anup Hawkins MD HEMATOLOGY ORDERA BLES Performing Organization Address [facility]/ZIP Co de Phone Number [facility] [place] [address] * Differential, Automated (07/19/2018 9:41 AM EST) Pathologist [facility] Neutrophil % 60.4 % [facility] Neutrophil Absolute 2.56 1.70 - 6.10 x10(3)/[facility] Lymph % 24.3 % [facility] Lymphocytes Abs 1.0 0.9 - 3.2 x10(3)/[facility] Monocyte % 10.8 % [facility] Monocyte Abs 0.5 0.3 - 0.9 x10(3)/[facility] Eos % 3.5 % [facility] Eosinophils Abs 0.2 0.0 - 0.4 x10(3)/[facility] Basophil % 0.5 % [facility] Baso Absolute 0.0 0.0 - 0.1 x10(3)/[facility] Immature Gran % 0.50 % [facility] Comment: Immature granulocytes(IG's)percentage and absolute count will include metamyelocytes, myelocytes, and promyelocytes. Blood smears from CBCs yielding IG's will be scanned manually for concordance. If this scan disagrees with the automated IG or if promyelocytes are noted, a manual differential will be performed. Immature Gran Absolute 0.02 0.00 - 0.04 x10(3)/[facility] Blood specimen (specimen) 07/19/2018 9:41 AM EST 07/19/2018 9:54 AM EST Narrative Resulting Agency Comment Spec In Lab Anup Hawkins MD HEMATOLOGY ORDERA BLES Performing Organization Address City/[facility]/ZIP Co de Phone Number [facility] [place] [address] * (ABNORMAL) Hemogram (07/19/2018 9:41 AM EST) [facility] White Blood Cell 4.2 4.0 - 9.5 x10(3)/[facility] Red Blood Cell 3.10(L) 4.58 - 5.54 x10(6)/[facility] Hemoglobin 8.8(L) 13.7 - 16.5 gm/dL [facility] Hematocrit 27.3(L) 40.5 - 48.5 % [facility] Mean Cell Volume 88.1 82.9 - 93.1 fL [facility] Mean Cell Hemoglobin 28.4 27.5 - 32.1 pg [facility] Mean Cell Hemoglobin Concentration 32.2 32.0 - 35.7 gm/dL [facility] Platelet 145 145 - 357 x10(3)/[facility] RDW Standard Deviation 48.8(H) 36.0 - 45.0 fL [facility] RDW coefficient of variation 15.5(H) 11.4 - 13.8 % [facility] Mean Platelet Volume 8.9 7.6 - 12.9 [facility] NRBC% auto 0.0 % [facility] NRBC Absolute 0.000 0.000 - 0.000 x10(3)/[facility] Blood specimen (specimen) 07/19/2018 9:41 AM EST 07/19/2018 9:54 AM EST Narrative Resulting Agency Comment Spec In Lab Anup Hawkins MD HEMATOLOGY ORDERA BLES [facility] [place] [address] * (ABNORMAL) Reticulocyte Count (07/19/2018 9:41 AM EST) Reticulocyte % 1.2 0.7 - 2.6 % [facility] Retic Abs # 0.040 0.030 - 0.120 x10(6)/[facility] Immature Retic% 9.0 0.0 - 15.6 % [facility] Reticulated Hgb 28.4(L) 31.3 - 40.2 pg [facility] Blood specimen (specimen) 07/19/2018 9:41 AM EST 07/19/2018 9:54 AM EST Narrative Resulting Agency Comment Spec In Lab Anup Hawkins MD HEMATOLOGY ORDERA BLES Performing Organization Address [facility] de Phone Number [facility] [place] [address] * Tacrolimus level (07/19/2018 9:41 AM EST) Tacrolimus 3.2 ng/mL [facility] Comment: Trough therapeutic: ??5-15 ng/mL Performed by ultra-performance liquid chromatography tandem mass spectrometry (UPLCMS/MS). This test was developed and its performance characteristics determined by [facility]. It has not been cleared or [...] MD CHEMISTRY ORDERAB LES Performing Organization Address [facility] de Phone Number [facility] [place] [address] * Ferritin (07/19/2018 9:41 AM EST) Ferritin 76 30 - 400 ng/mL [facility] Comment: Pediatric reference ranges not verified at [facility], interpret with caution. Reference ranges for females greater than 50 years of age approach values for men, i.e., 30-400 ng/mL. Blood specimen (specimen) 07/19/2018 9:41 AM EST 07/19/2018 9:54 AM EST Narrative Resulting Agency Comment Spec In Lab Anup Hawkins MD CHEMISTRY ORDERAB LES Performing Organization Address [facility]/ZIP Co de Phone Number [facility] [place] [address] * Folate, serum (07/19/2018 9:41 AM EST) Folate 10.9 4.8 - 24.2 ng/mL [facility] Blood specimen (specimen) 07/19/2018 9:41 AM EST 07/19/2018 9:54 AM EST Narrative Resulting Agency Comment Spec In Lab Anup Hawkins MD CHEMISTRY ORDERAB LES Performing Organization Address [facility] Co de Phone Number [facility] [place] [address] * Iron and TIBC (07/19/2018 9:41 AM EST) Pathologist [facility] Iron 70 45 - 160 mcg/dL [facility] TIBC 263 250 - 450 mcg/dL [facility] Iron Saturation 27 20 - 50 % [facility] Blood specimen (specimen) 07/19/2018 9:41 AM EST 07/19/2018 9:54 AM EST Narrative Resulting Agency Comment Spec In Lab Anup Hawkins MD CHEMISTRY ORDERAB LES Performing Organization Address [facility] Co de Phone Number [facility] [place] [address] * (ABNORMAL) Basic Metabolic Panel (non-fasting) (07/19/2018 9:41 AM EST) Glucose 105 65 - 199 mg/dL [facility] Comment:Diabetes: >=200 mg/d L plus symptoms Blood Urea Nitrogen 72(H) 10 - 20 mg/dL [facility] Creatinine 7.40(H) 0.80 - 1.50 mg/dL [facility] Sodium 148(H) 135 - 145 mmol/L [facility] Potassium 5.0 3.5 - 5.0 mmol/L [facility] Comment: Please note: ??Patients with WBC >100,000 may have falsely elevated Potassium levels. ??For accurate Potassium quantification in these patients send serum separator tube (gold top) for subsequent determinations. ??Contact the Clinical Chemistry Laboratory if there are any questions. Chloride 112(H) 98 - 107 mmol/L [facility] Carbon Dioxide 18(L) 22 - 31 mmol/L [facility] Anion Gap 18(H) 5 - 15 mmol/L [facility] Calcium 7.7(L) 8.5 - 10.5 mg/dL [facility] Est Glomerular Filtration Rate 7(L) >=60 mL/min/1. 73 m?? [facility] Comment: The eGFR was calculated using the CKD-EPI equation. As with all creatinine based estimates of kidney function, eGFR values calculated with the CKD-EPI equation are not accurate in patients with acute kidney failure, extremes of body mass or the acutely ill. http://[employer]/[facility]nkf eGFR 9(L) >=60 mL/min/1. 73 m?? [facility] Comment: The eGFR was calculated using the CKD-EPI equation. As with all creatinine based estimates of kidney function, eGFR values calculated with the CKD-EPI equation are not accurate in patients with acute kidney failure, extremes of body mass or the acutely ill. http://[employer]/[facility] Blood specimen (specimen) 07/19/2018 9:41 AM EST 07/19/2018 9:54 AM EST Narrative Resulting Agency Comment Spec In Lab Anup Hawkins MD CHEMISTRY ORDERAB LES [facility] [place] [address] * Cholesterol, total (07/19/2018 9:41 AM EST) Cholesterol, Total 202 mg/dL [facility] Comment: Lower Risk: <200 mg/dL Average Risk: 200-239 mg/dL Higher Risk: >vv=615 mg/dL Lipid Interpretation See Note [facility] Comment: Lipid management should be guided by a patient? s ASCVD risk, goals and preferences. ACC/AHA Guidelines recommend high intensity statin if clinical ASCVD or LDL greater than or equal to 190 mg/dL. http://[employer]com/HOK-GIK-Boukyvuap Adults aged 40-75 with LDL 70-189 mg/dL should have their 10 year ASCVD risk estimated with the ACC/AHA ASCVD risk painting supervisor http://tools.acc.org/ZQPXG-Skyt-Uppokgkri/ Statin should be discussed if risk greater [...] of ASCVD risk reduction. Blood specimen (specimen) 07/19/2018 9:41 AM EST 07/19/2018 9:54 AM EST Narrative Resulting Agency Comment Spec In Lab Anup Hawkins MD CHEMISTRY ORDERAB LES Performing Organization Address City/State/[facility] Co de Phone Number [facility] [place] [address] * (ABNORMAL) Comprehensive metabolic panel (non-fasting) (07/19/2018 9:41 AM EST) Glucose 105 65 - 199 mg/dL [facility] Comment:Diabetes: >=200 mg/d L plus symptoms Blood Urea Nitrogen 72(H) 10 - 20 mg/dL [facility] Creatinine 7.40(H) 0.80 - 1.50 mg/dL [facility] Sodium 148(H) 135 - 145 mmol/L [facility] Potassium 5.0 3.5 - 5.0 mmol/L [facility] Comment: Please note: ??Patients with WBC >100,000 may have falsely elevated Potassium levels. ??For accurate Potassium quantification in these patients send serum separator tube (gold top) for subsequent determinations. ??Contact the Clinical Chemistry Laboratory if there are any questions. Chloride 112(H) 98 - 107 mmol/L [facility] Carbon Dioxide 18(L) 22 - 31 mmol/L [facility] Anion Gap 18(H) 5 - 15 mmol/L [facility] Calcium 7.7(L) 8.5 - 10.5 mg/dL [facility] Protein, Total 5.9(L) 6.1 - 8.0 gm/dL [facility] Albumin 3.5 3.2 - 5.2 gm/dL [facility] Aspartate Aminotransferase 18 0 - 39 unit/L [facility] Alanine Aminotransferase 11 0 - 55 unit/L [facility] Alkaline Phosphatase 101 40 - 120 unit/L [facility] Bilirubin, Total 0.3 0.2 - 1.3 mg/dL [facility] Est Glomerular Filtration Rate 7(L) >=60 mL/min/1. 73 m?? [facility] Comment: The eGFR was calculated using the CKD-EPI equation. As with all creatinine based estimates of kidney function, eGFR values calculated with the CKD-EPI equation are not accurate in patients with acute kidney failure, extremes of body mass or the acutely ill. http://[employer]/[facility] eGFR 9(L) >=60 mL/min/1. 73 m?? [facility] Comment: The eGFR was calculated using the CKD-EPI equation. As with all creatinine based estimates of kidney function, eGFR values calculated with the CKD-EPI equation are not accurate in patients with acute kidney failure, extremes of body mass or the acutely ill. http://[employer]/[facility] Blood specimen (specimen) 07/19/2018 9:41 AM EST 07/19/2018 9:54 AM EST Narrative Resulting Agency Comment Spec In Lab Anup Hawkins MD CHEMISTRY ORDERAB LES [facility] [place] [address] * Magnesium (07/19/2018 9:41 AM EST) Magnesium 0.89 0.69 - 1.07 mmol/L [facility] Blood specimen (specimen) 07/19/2018 9:41 AM EST 07/19/2018 9:54 AM EST Narrative Resulting Agency Comment Spec In Lab Anup Hawkins MD CHEMISTRY ORDERAB LES Performing Organization Address [facility] Co de Phone Number [facility] [place] [address] * (ABNORMAL) Phosphorus (07/19/2018 9:41 AM EST) Phosphorus 6.7(H) 2.5 - 4.5 mg/dL [facility] Blood specimen (specimen) 07/19/2018 9:41 AM EST 07/19/2018 9:54 AM EST Narrative Resulting Agency Comment Spec In Lab Anup Hawkins MD CHEMISTRY ORDERAB LES Performing Organization Address [facility] Co de Phone Number [facility] [place] [address] * Uric acid (07/19/2018 9:41 AM EST) Uric Acid 5.5 3.5 - 8.5 mg/dL [facility] Blood specimen (specimen) 07/19/2018 9:41 AM EST 07/19/2018 9:54 AM EST Narrative Resulting Agency Comment Spec In Lab Anup Hawkins MD CHEMISTRY ORDERAB LES Performing Organization Address [facility] Co de Phone Number [facility] [place] [address] documented in this encounter Visit Diagnoses Diagnosis S/P kidney transplant Kidney replaced by transplant H/O kidney transplant Kidney replaced by transplant documented in this encounter Care Teams Application Support Analyst Relationship Specialty Start Date End Date Carroll Fuentes DO [address] [place] [address] PCP - General 09/23/11 10/20/22 documented as of this encounter
--- OUTSIDE RECORDS SUMMARY | 2024-04-22 10:57 | XMS_ITS | Encounter Summary ---
Author Organization [facility] Address [facility] [place] [address] Care Team Providers Care Diver Assistant Name Role Phone Carroll Fuentes DO Primary Care Provider [phone] Encounter Details Date Type Department Care Team (Latest Contact Info) Description 06/02/2018 2:17 PM EST - 06/02/2018 4:06 PM [facility] Hospital Encounter Radiology Library at [facility] [place] [address] Tim Torres MD [facility] [place] [address] Discharge Disposition: Home Social History Tobacco Use [...] morning and 250 mg every morning. 2018 aspirin 81 mg Tablet, Delayed Release (E.C.) Take 81 mg by mouth daily. 06/04/2018 amLODIPine (NORVASC) 2.5 mg Tablet Take 2.5 mg by mouth daily. 2018 senna-docusate (PERICOLACE) 8.6-50 mg Tablet Take 2 tablets by mouth 2 times daily. 60 tablet 11 05/04/2018 07/19/2018 tacrolimus (PROGRAF) 1 mg Capsule Take 1 capsule by mouth nightly. 05/04/2018 2018 tacrolimus (PROGRAF) 0.5 mg Capsule Take 3 capsules by mouth daily. 05/05/2018 2018 acetaminophen (TYLENOL) 500 mg Tablet Take 2 tablets by mouth every 6 hours. 30 tablet 1 05/03/2018 06/04/2018 hydrALAZINE (APRESOLINE) 50 mg Tablet Take 1 tablet by mouth 3 times daily. 05/03/2018 06/07/2018 losartan (COZAAR) 50 mg Tablet Take 1 tablet by mouth every morning. 90 tablet 3 05/04/2018 06/04/2018 metoprolol tartrate (LOPRESSOR) 50 mg Tablet Take [...] times daily. 180 tablet 3 08/17/2017 2018 sodium bicarbonate 650 mg Tablet Take 1 tablet by mouth 3 times daily. 270 tablet 3 06/28/2017 06/04/2018 docusate sodium (COLACE) 100 mg Capsule Take [...] STORAGE ONLY CT HEAD AND SPINE Routine 06/02/2018 2:17 PM EST documented in this encounter Results * Film Library- Storage Only CT Head And Spine (06/02/2018 2:17 PM EST) Narrative [facility] - 06/02/2018 2:17 PM EST This exam is for storage only and is auto-finalizing. Tim Torres MD G FILM LIBRARY ORD ERABLES [place], [place] documented in this encounter Visit Diagnoses Not on filedocumented in this encounter Care Teams Diver Assistant Relationship Specialty Start Date End Date Carroll Fuentes DO [address] [place] [address] PCP - General 09/23/11 10/20/22 documented as of this encounter
--- OUTSIDE RECORDS SUMMARY | 2024-04-22 10:57 | XMS_ITS | Encounter Summary ---
Author Organization [facility] Address [facility] [place] [address] Care Team Providers Care Client Solutions Specialist Name Role Phone AlfredoCarroll allison Primary Care Provider Encounter Details Date Type Department Care Team (Late st Contact Info) Description 05/17/2018 Notes [place] [address] Sushila Feng, RN Social History Tobacco Use Types Packs/Day [...] as of this encounter Progress Notes * Sushila Feng, RN - 05/17/2018 11:52 AM EST 11:45: Dr. Kurt Medina's Progress Note from today with new dosing recommendations for Vancomycin faxed to Tasneem Fitzgerald ([phone]). Recommendations: - decrease vanco to 1 gram IV q 48, follow labs per OPAT. - continue oral metronidazole 500 mg bid and ciprofloxacin 500 mg po bid - complete vanco, cipro and flagyl on 05/24 and d/c/ picc. -after that, start Keflex 500mg po BID for 3 months. -Follow up in 2 months 11:50: I phoned Mr. Ram's nurse, Dania to discuss the new dosing schedule for the Vancomycin and to confirm that she had received the fax. Per Dania, Dr. Kelvin Holt had changed the Cipro to 250 mg BID back in April. Per Dania, Dr. Holt had ordered a Vanco Trough for tomorrow, 05/18/18. I asked that she fax us the results and to have the OPAT labs drawn on 05/23/18 (CBC w/Diff, CMP). documented in this encounter Plan of Treatment Not on file documented as of this encounter Visit Diagnoses Not on filedocumented in this encounter Care Teams Client Solutions Specialist Relationship Specialty Start Date End Date Carroll Fuentes DO [address] [place] [address] PCP - General 09/23/11 10/20/22 documented as of this encounter
--- OUTSIDE RECORDS SUMMARY | 2024-04-22 10:57 | XMS_ITS | Encounter Summary ---
Author Organization [facility] Address [facility] [place] [address] Care Team Providers Care Telephone Worker Name Role Phone AlfredoCarroll allison Primary Care Provider Encounter Details Date Type Department Care Team (Late st Contact Info) Description 06/03/2018 [place] [address] Anabella Norwood Social History Tobacco Use Types [...] * Telephone Encounter - Anabella Norwood - 06/06/2018 9:40 AM EST Pt scheduled. Appt details to be included on discharge summary and by CBT * Telephone Encounter - Anabella Norwood - 06/03/2018 4:07 PM EST Pt admitted as of 06/03 * Telephone Encounter - Anabella Norwood - 06/03/2018 4:01 PM EST Patient needs f/u appointment(s): With AP on/around 07/03-07/16 4-6wk Laurence JACKSON s/p likely seizure and fall , CT prior * Telephone Encounter - Anabella Norwood - 06/03/2018 4:00 PM EST Images from the original note were not included. Inpatient Notes Received: Today Message Contents Dmitriy Hoffman, CATRACHITO Huang Neurosurgery Line Maintenance ?? Follow up with AP in [address] Dmitriy Zhu documented in this encounter Plan of Treatment Not on file documented as of this encounter Visit Diagnoses Not on filedocumented in this encounter Care Teams Telephone Worker Relationship Specialty Start Date End Date Carroll Fuentes DO [address] [place] [address] PCP - General 09/23/11 10/20/22 documented as of this encounter
--- OUTSIDE RECORDS SUMMARY | 2024-04-22 10:57 | XMS_ITS | Encounter Summary ---
Author Organization [facility] Address [facility] [place] [address] Care Team Providers Care Loan Servicing Officer Name Role Phone AlfredoCarroll allison Primary Care Provider [phone] Reason for Referral * Consultation (Routine) - Closed Specialty Diagnoses / Procedures Referred By Contac t Referred To Contact Infectious Diseases Diagnoses Surgical wound infection Kurt Medina MD [facility] [place] [address] Kurt Medina MD [facility] [place] [address] Referral ID Status Reason Start Date Expiration Date V isits Requested Visits Authorized [id number] Closed Assume Subset of Care 05/12/2018 05/12/2019 1 1 Encounter Details Date Type Department Care Team (Late st Contact Info) Description 05/12/2018 Orders [place] [address] Kurt Medina MD [facility] [place] [address] Surgical wound infection Social History Tobacco Use Types Packs/Day Years [...] Name Type Priority Associated Diagnoses Order Schedule OPAT: Order / Recommendation for Post Discharge IV Antibiotic Management Outpatient Referral Routine Surgical wound infection Ordered: 05/12/2018 documented as of this encounter Visit Diagnoses Diagnosis Surgical wound infection Other postoperative infection documented in this encounter Care Teams Loan Servicing Officer Relationship Specialty Start Date End Date Carroll Fuentes DO [address] [place] [address] PCP - General 09/23/11 10/20/22 documented as of this encounter
--- OUTSIDE RECORDS SUMMARY | 2024-04-22 10:57 | XMS_ITS | Encounter Summary ---
[place] [address] Care Team Providers Care Evp Name Role Phone Alfredo, Carroll MIX Primary Care Provider [phone] Encounter Details Date Type Department Care Team (Latest Contact Info) Description 05/25/2018 8:15 AM EST Laboratory Appointment Lab [address] [place] [address] S/P kidney transplant; Renal cell carcinoma, unspecified laterality; Aftercare following organ transplant; care home current use of immunosuppressive drug; H/O kidney transplant Social History Tobacco Use [...] Associated Diagnosis Comments URINALYSIS MICROSCOPIC EXAM STAT 05/25/2018 8:31 AM EST BKV QUANT URINE STAT 05/25/2018 8:31 AM EST Aftercare following organ transplant care home current use of immunosuppressive drug H/O kidney transplant PROTEIN/CREATININE RATIO, URINE STAT 05/25/2018 8:31 AM EST Aftercare following organ transplant care home current use of immunosuppressive drug H/O kidney transplant URINALYSIS WITH REFLEX CULTURE STAT 05/25/2018 8:31 AM EST Aftercare following organ transplant superintendent container terminal current use of immunosuppressive drug H/O kidney transplant HEMOGRAM STAT 05/25/2018 8:30 AM EST S/P kidney transplant DIFFERENTIAL, AUTOMATED STAT 05/25/2018 8:30 AM EST S/P kidney transplant TACROLIMUS LEVEL STAT 05/25/2018 8:30 AM EST S/P kidney transplant RETICULOCYTE COUNT STAT 05/25/2018 8: 30 AM EST Aftercare following organ transplant care home current use of immunosuppressive drug H/O kidney transplant CBC (WITH DIFF) STAT 05/25/2018 8:30 AM EST S/P kidney transplant URIC ACID STAT 05/25/2018 8:30 AM EST Aftercare following organ transplant care home current use of immunosuppressive drug H/O kidney transplant PHOSPHORUS STAT 05/25/2018 8:30 AM EST Aftercare following organ transplant superintendent container terminal current use of immunosuppressive drug H/O kidney transplant MAGNESIUM STAT 05/25/2018 8:30 AM EST S/P kidney transplant CHOLESTEROL, TOTAL STAT 05/25/2018 8: 30 AM EST S/P kidney transplant COMPREHENSIVE METABOLIC PANEL STAT 05/25/2018 8:30 AM EST S/P kidney transplant documented in this encounter Results * Urinalysis Microscopic Exam (05/25/2018 8:31 AM EST) RBC, Urine 2 0 - 3 /HPF [facility] WBC, Urine 1 0 - 3 /HPF [facility] Hyaline Casts, Urine 1 0 - 2 /LPF [facility] Urine specimen (specimen) 05/25/2018 8:31 AM EST 05/25/2018 8:34 AM EST Narrative Resulting Agency Comment Spec In Lab Anup Hawkins MD URINE ORDERABLES Performing Organization Address [facility] Co de Phone Number [facility] [place] [place] [address] * BKV Quant Urine (05/25/2018 8:31 AM EST) BKV Urine Result Not Detected [facility] BKV Urine Interp BK Virus Urine Result Interpretation Result: BK Virus not detected Specimen type: urine Assay Range: 2.80-7.80 log copies/mL (6.28x10^2 - 6.28x10^7 copies/mL) Methods: Quantitative real-time polymerase chain reaction (PCR) of viral DNA isolated from urine was performed using [employer] (formerly, [employer]) BKV analyte-specific reagents and the [employer] 7500 FAST Real-Time PCR System. In addition, the PCR product sequence is confirmed using physical properties (melting curve analysis). Limitations and Disclaimers: Although unlikely, rare variants [...] [employer] ([employer]) Laboratory at [facility]. It has not been cleared or approved by the FDA. The laboratory is regulated under CLIA as qualified to perform high-complexity testing. This test is used for clinical purposes. It should not be regarded as investigational or for research. [facility] Comment: [VERIFIED DATE]06.01.18 Verified By:Fannie Olivas (Electronic Signature) Urine specimen (specimen) 05/25/2018 8:31 AM EST 05/25/2018 9:36 AM EST Narrative Resulting Agency Comment Spec In Lab Anup Hawkins MD MOLECULAR ORDERAB LES Performing Organization Address [facility]/ZIP Co de Phone Number [facility] [place] [place] [address] * (ABNORMAL) Urinalysis with reflex Culture (05/25/2018 8:31 AM EST) Glucose, Urine Dipstick Negative Negative mg/dL [facility] Protein, Urine Dipstick >=500(A) Negative mg/dL [facility] Bilirubin, Urine Dipstick Negative Negative mg/dL [facility] Comment: Clinical correlation required for positive Urine Bilirubin results as false positive may occur with some drugs and drug related products. If a false positive is suspected a serum total bilirubin should be considered if clinically indicated. Urobilinogen, Urine Dipstick Normal Normal mg/dL [facility] pH, Urn (dipstick) 6.0 5.0 - 8.0 [facility] Blood, Urine Dipstick Negative Negative mg/dL [facility] Ketone, Urine Dipstick Negative Negative mg/dL [facility] Nitrite, Urine Dipstick Negative Negative [facility] Leukocytes, Urine Dipstick Negative Negative [facility] Appearance, Urine Dipstick Clear Clear [facility] Specific [place] Urine Automated 1.017 1.002 - 1.030 [facility] Color, Urine Dipstick Yellow Yellow [facility] Reflex to Culture No [facility] Urine specimen (specimen) 05/25/2018 8:31 AM EST 05/25/2018 8:34 AM EST Narrative Resulting Agency Comment Spec In Lab Anup Hawkins [place] [address] * (ABNORMAL) Protein/Creatinine Ratio, urine (05/25/2018 8:31 AM EST) Creatinine, Urine 78 mg/dL [facility] Protein, Urine 741(H) 0 - 12 mg/dL [facility] Protein / Creatinine Ratio, Urine 9.5 ratio [facility] Urine specimen (specimen) 05/25/2018 8:31 AM EST 05/25/2018 8:35 AM EST Narrative Resulting Agency Comment Spec In Lab Anup Hawkins MD URINE ORDERABLES [facility] [place] [address] * Differential, Automated (05/25/2018 8:30 AM EST) Neutrophil % 62.3 % [facility] Neutrophil Absolute 2.72 1.70 - 6.10 x10(3)/[facility] Lymph % 21.8 % [facility] Lymphocytes Abs 1.0 0.9 - 3.2 x10(3)/[facility] Monocyte % 10.3 % [facility] Monocyte Abs 0.4 0.3 - 0.9 x10(3)/[facility] Eos % 4.4 % [facility] Eosinophils Abs 0.2 0.0 - 0.4 x10(3)/[facility] Basophil % 0.7 % [facility] Baso Absolute 0.0 0.0 - 0.1 x10(3)/[facility] Immature Gran % 0.50 % [facility] Comment: Immature granulocytes(IG's)percentage and absolute count will include metamyelocytes, myelocytes, and promyelocytes. Blood smears from CBCs yielding IG's will be scanned manually for concordance. If this scan disagrees with the automated IG or if promyelocytes are noted, a manual differential will be performed. Immature Gran Absolute 0.02 0.00 - 0.04 x10(3)/[facility] Blood specimen (specimen) 05/25/2018 8:30 AM EST 05/25/2018 8:34 AM EST Narrative Resulting Agency Comment Spec In Lab Anup Hawkins MD HEMATOLOGY ORDERA BLES [facility] [place] [place] [address] * (ABNORMAL) Hemogram (05/25/2018 8:30 AM EST) White Blood Cell 4.4 4.0 - 9.5 x10(3)/mc L [facility] Red Blood Cell 3.06(L) 4.58 - 5.54 x10(6)/mc L [facility] Hemoglobin 9.3(L) 13.7 - 16.5 gm/dL [facility] Hematocrit 29.2(L) 40.5 - 48.5 % [facility] Mean Cell Volume 95.4(H) 82.9 - 93.1 fL [facility] Mean Cell Hemoglobin 30.4 27.5 - 32.1 pg [facility] Mean Cell Hemoglobin Concentration 31.8(L) 32.0 - 35.7 gm/dL [facility] Platelet 190 145 - 357 x10(3)/mc L [facility] RDW Standard Deviation 52.3(H) 36.0 - 45.0 [facility] RDW coefficient of variation 14.9(H) 11.4 - 13.8 % [facility] Mean Platelet Volume 8.6 7.6 - 12.9 [facility] NRBC% auto 0.0 % [facility] NRBC Absolute 0.000 0.000 - 0.000 x10(3)/mc L [facility] Blood specimen (specimen) 05/25/2018 8:30 AM EST 05/25/2018 8:34 AM EST Narrative Resulting Agency Comment Spec In Lab Anup Hawkins MD HEMATOLOGY ORDERA BLES [facility] [place] [address] * (ABNORMAL) Reticulocyte Count (05/25/2018 8:30 AM EST) Reticulocyte % 0.8 0.7 - 2.6 % [facility] Retic Abs # 0.020(L) 0.030 - 0.120 x10(6)/mc L [facility] Immature Retic% 6.6 0.0 - 15.6 % [facility] Reticulated Hgb 34.0 31.3 - 40.2 pg [facility] Blood specimen (specimen) 05/25/2018 8:30 AM EST 05/25/2018 8:34 AM EST Narrative Resulting Agency Comment Spec In Lab Anup Hawkins MD HEMATOLOGY ORDERA BLES Performing Organization Address [facility] Co de Phone Number [facility] [place] [address] * Uric acid (05/25/2018 8:30 AM EST) Uric Acid 5.6 3.5 - 8.5 mg/dL [facility] Blood specimen (specimen) 05/25/2018 8:30 AM EST 05/25/2018 8:34 AM EST Narrative Resulting Agency Comment Spec In Lab Anup Hawkins MD CHEMISTRY ORDERAB LES Performing Organization Address [facility] Co de Phone Number [facility] [place] [address] * (ABNORMAL) Phosphorus (05/25/2018 8:30 AM EST) Phosphorus 5.6(H) 2.5 - 4.5 mg/dL [facility] Blood specimen (specimen) 05/25/2018 8:30 AM EST 05/25/2018 8:34 AM EST Narrative Resulting Agency Comment Spec In Lab Anup Hawkins MD CHEMISTRY ORDERAB LES Performing Organization Address City/[facility]/ZIP Co de Phone Number [facility] [place] [address] * Tacrolimus level (05/25/2018 8:30 AM EST) Tacrolimus 16.7 ng/mL [facility] Comment: Trough therapeutic: ??5-15 ng/mL Performed by ultra-performance liquid chromatography tandem mass spectrometry (UPLCMS/MS). This test was developed and its performance characteristics determined by [facility]. It has not been cleared or approved by the FDA. The laboratory is regulated under CLIA as qualified to perform high-complexity testing. This test is used for clinical purposes. It should not be regarded as investigational or for research. Blood specimen (specimen) 05/25/2018 8:30 AM EST 05/25/2018 11:37 AM EST Narrative Resulting Agency Comment Spec In Lab Anup Hawkins MD CHEMISTRY ORDERAB LES [facility] [place] [address] * Cholesterol, total (05/25/2018 8:30 AM EST) Cholesterol, Total 174 mg/dL [facility] Comment: Lower Risk: <200 mg/dL Average Risk: 200-239 mg/dL Higher Risk: >nj=894 mg/dL Lipid Interpretation See Note [facility] Comment: Lipid management should be guided by a patient? s ASCVD risk, goals and preferences. ACC/AHA Guidelines recommend high intensity statin if clinical ASCVD or LDL greater than or equal to 190 mg/dL. http://tinyurl.com/SWV-MAF-Weusktada Adults aged 40-75 with LDL 70-189 mg/dL should have their 10 year ASCVD risk estimated with the ACC/AHA ASCVD risk timber estimator http://tools.acc.org/FRSAB-Hrtr-Qvzfnfvci/ Statin should be discussed if risk greater [...] of ASCVD risk reduction. Blood specimen (specimen) 05/25/2018 8:30 AM EST 05/25/2018 8:34 AM EST Narrative Resulting Agency Comment Spec In Lab Anup Hawkins MD CHEMISTRY ORDERAB LES [facility] [place] [address] * (ABNORMAL) Comprehensive metabolic panel (non-fasting) (05/25/2018 8:30 AM EST) Glucose 97 65 - 199 mg/dL [facility] Comment:Diabetes: >=200 mg/d L plus symptoms Blood Urea Nitrogen 48(H) 10 - 20 mg/dL [facility] Creatinine 3.08(H) 0.80 - 1.50 mg/dL [facility] Sodium 142 135 - 145 mmol/L [facility] Potassium 5.3(H) 3.5 - 5.0 mmol/L [facility] Comment: Please note: ??Patients with WBC >100,000 may have falsely elevated Potassium levels. ??For accurate Potassium quantification in these patients send serum separator tube (gold top) for subsequent determinations. ??Contact the Clinical Chemistry Laboratory if there are any questions. Chloride 109(H) 98 - 107 mmol/L [facility] Carbon Dioxide 18(L) 22 - 31 mmol/L [facility] Anion Gap 15 5 - 15 mmol/L [facility] Calcium 8.4(L) 8.5 - 10.5 mg/dL [facility] Protein, Total 5.9(L) 6.1 - 8.0 gm/dL [facility] Albumin 3.5 3.2 - 5.2 gm/dL [facility] Aspartate Aminotransferase 17 0 - 39 unit/L [facility] Alanine Aminotransferase 10 0 - 55 unit/L [facility] Alkaline Phosphatase 91 40 - 120 unit/L [facility] Bilirubin, Total 0.2 0.2 - 1.3 mg/dL [facility] Est Glomerular Filtration Rate 22(L) >=60 mL/min/1. 73 m?? [facility] Comment: The eGFR was calculated using the CKD-EPI equation. As with all creatinine based estimates of kidney function, eGFR values calculated with the CKD-EPI equation are not accurate in patients with acute kidney failure, extremes of body mass or the acutely ill. http://[employer]/[facility]SAnkf eGFR 25(L) >=60 mL/min/1. 73 m?? [facility] Comment: The eGFR was calculated using the CKD-EPI equation. As with all creatinine based estimates of kidney function, eGFR values calculated with the CKD-EPI equation are not accurate in patients with acute kidney failure, extremes of body mass or the acutely ill. http://[employer]/[facility]SAnkf Blood specimen (specimen) 05/25/2018 8:30 AM EST 05/25/2018 8:34 AM EST Narrative Resulting Agency Comment Spec In Lab Anup Hawkins MD CHEMISTRY ORDERAB LES Performing Organization Address [facility] Co de Phone Number [facility] [place] [address] * Magnesium (05/25/2018 8:30 AM EST) Magnesium 0.86 0.69 - 1.07 mmol/L [facility] Blood specimen (specimen) 05/25/2018 8:30 AM EST 05/25/2018 8:34 AM EST Narrative Resulting Agency Comment Spec In Lab Anup Hawkins MD CHEMISTRY ORDERAB LES Performing Organization Address [facility] Co de Phone Number [facility] [place] [address] documented in this encounter Visit Diagnoses Diagnosis S/P kidney transplant Kidney replaced by transplant Renal cell carcinoma, unspecified laterality Aftercare following organ transplant care home current use of immunosuppressive drug H/O kidney transplant Kidney replaced by transplant documented in this encounter Care Teams Evp Relationship Specialty Start Date End Date Carroll Fuentes DO [address] [place] [address] PCP - General 09/23/11 10/20/22 documented as of this encounter
--- OUTSIDE RECORDS SUMMARY | 2024-04-22 10:57 | XMS_ITS | Encounter Summary ---
Author Organization [facility] Address [facility] [place] [address] Care Team Providers Care Building Maintenance Superintendent Name Role Phone AlfredoCarroll allison Primary Care Provider [phone] Encounter Details Date Type Department Care Team (Late st Contact Info) Description 05/17/2018 12:30 PM EST Office Visit [place] [address] Nilda Minaya, BONE TENDER [facility] [place] [address] CKD (chronic kidney disease) stage 4, GFR 15-29 ml/min; Surgery follow-up; Hx of skin graft Social History Tobacco Use Types Packs/Day Years [...] Progress Notes * Nilda Minaya, RN - 05/17/2018 12:30 PM EST Images from the original note were not included. Pt's left wrist incision s/p fistula ligation and excision. Pt's left forearm s/p open wound with skin graft. MR. Leanna was seen in Vascular Surgery clinic today following appointments with Plastic Surgery and Infectious Diseases. He reports that both appointments went well. Adama's left arm appears well healing, no evidence of infection. Pt feels well, is pleasant and interactive. Pt and brother (present today) are continuing to work on living arrangements following Dino's dc from [facility] est. 05/27/2018. They are hopeful to find an assisted living arrangement. Adama is doing well overall and will follow-up based on feedback from Dr. Peter for scheduling. documented in this encounter Plan of Treatment Not on file documented as of this encounter Visit Diagnoses Diagnosis CKD (chronic kidney disease) stage 4, GFR 15-29 ml/min Chronic kidney disease, Stage IV (severe) Surgery follow-up Follow-up examination, following unspecified surgery Hx of skin graft Personal history of surgery to other organs documented in this encounter Care Teams Building Maintenance Superintendent Relationship Specialty Start Date End Date Carroll Fuentes DO [address] [place] [address] PCP - General 09/23/11 10/20/22 documented as of this encounter
--- OUTSIDE RECORDS SUMMARY | 2024-04-22 10:57 | XMS_ITS | Encounter Summary ---
Author Organization [facility] Address [facility] [place] [address] Care Team Providers Care Director Database Name Role Phone AlfredoCarroll allison Primary Care Provider [phone] Reason for Referral * Physical Therapy (Routine) - Closed Specialty Diagnoses / Procedures Referred By Shashi ko Referred To Contact Physical Therapy Diagnoses Surgery follow-up Lida Peter MD [facility] [place] [address] [facility] [address] Referral ID Status Reason Start Date Expiration Date V isits Requested Visits Authorized [id number] Closed Evaluate and Treat 05/27/2018 05/27/2019 1 1 Encounter Details Date Type Department Care Team (Late st Contact Info) Description 05/25/2018 11:30 AM EST Office [place] [address] Lida Peter MD [facility] [place] [address] CKD (chronic kidney disease) stage 4, GFR 15-29 ml/min; Surgery follow-up Social History Tobacco Use Types Packs/Day [...] as of this encounter Progress Notes * Lida Peter MD - 05/25/2018 11:30 AM EST Mr. Ram returns for post-op check. He recently had a blow-out of his left AVF that resulted in acode and CPR. Following resuscitation, we explored his arm, resected the blown out fistula, and repaired the brachial artery. 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 He has now completed abxand is back home. His arm fasciotomy was closed with a skin graft and has healed up well. His arm function is good and nervous function intact. He has good vascular flow and palpable radial pulse. His main concern is significant lymphedema. I will refer him to lymphedema clinic at and ask that he be fitted for a gloved sleeve. Lida Peter MD, MS Section of Vascular Surgery documented in this encounter Miscellaneous Notes * Addendum Note - Lida Peter MD - 05/25/2018 11:30 AM ESTAddended by: LIDA PETER on: 05/27/2018 02:47 PM Modules accepted: Orders documented in this encounter Plan of Treatment Scheduled Referrals Name Type Priority Associated Diagnoses Orde r Schedule Referral to Physical Therapy Outpatient Referral Routine Surgery follow-up Ordered: 05/27/2018 documented as of this encounter Visit Diagnoses Diagnosis CKD (chronic kidney disease) stage 4, GFR 15-29 ml/min Chronic kidney disease, Stage IV (severe) Surgery follow-up Follow-up examination, following unspecified surgery documented in this encounter Care Teams Director Database Relationship Specialty Start Date End Date Carroll Fuentes DO [address] [place] [address] PCP - General 09/23/11 10/20/22 documented as of this encounter
--- OUTSIDE RECORDS SUMMARY | 2024-04-22 10:57 | XMS_ITS | Encounter Summary ---
Author Organization [facility] [address] Care Team Providers Care Inspector Poising Name Role Phone Carroll Fuentes DO Primary Care Provider Encounter Details Date Type Department Care Team (Late st Contact Info) Description 05/13/2018 Orders [place] [address] Sushila Feng, RN Social History Tobacco Use [...] on filedocumented in this encounter Care Teams Inspector Poising Relationship Specialty Start Date End Date Carroll Fuentes DO [address] [place] [address] PCP - General 09/23/11 10/20/22 documented as of this encounter
--- OUTSIDE RECORDS SUMMARY | 2024-04-22 10:57 | XMS_ITS | Encounter Summary ---
Author Organization [facility] Address [facility] [place] [address] Care Team Providers Care Sewer And Cutter Finger Buff Material Name Role Phone AlfredoCarroll allison Primary Care Provider Encounter Details Date Type Department Care Team (Late st Contact Info) Description 05/12/2018 Notes [place] [address] Sushila Feng, RN Social History Tobacco Use [...] of this encounter Progress Notes * Sushila Feng RN - 05/12/2018 3:59 PM EDT OPAT: Order / Recommendation for Post Discharge IV Antibiotic Management To: Kurt Medina Specialty: ID Diagnosis: 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 I phoned the [facility] to speak with the pt's nurse to determine the dosing time of the Vancomycin. She assured me that the dosing time was 09:00, and that the Vancomycin Trough had beencollected @ 08:45. The nurse informed me that the Quality Assurance Intern for the [place], Dr.Brad Holt had changed the Vancomycin dosing to 750 mg IV every 24 hours as of 05/08/18. Update sent to Dr. Medina with an order to recheck the Vancomycin Trough and Creatinine in the AM of 05/12/18, with order sent to the facility. 05/12/18: Cr: 2.90 Vanco Trough 21.9. I phoned the Center to determine if the Vanco dosing remainedat 750 mg IV every 24 hours, which it was. Update given to Dr. Medina. Pharmacist Richard Zamora consulted for recommendations. New OPAT order completed. I phoned the pt's nurse, Ilda to review the new OPAT order and labs then faxed to the Center ([phone]). 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 Antibiotic (one line for each ABx): Vancomycin Goal: 10-15. Next Trough Due 05/18/2018 30 minutes prior to 09:00 dose. Start date: 04/26/2018 Anticipated stop date: 05/24/2018 Labs: Every Wednesday: CBC, CMP (ADD DIFF w/CBC, Will Instruct on next Vanco Trough after 05/18/18) Last documented weight (kg): 84.3 kg (185 lb 13.6 oz) Last documented height (cm): 178 cm ( 10.08) Responsible Attending: Kurt Medina MD documented in this encounter Plan of Treatment Not on file documented as of this encounter Visit Diagnoses Not on filedocumented in this encounter Care Teams Sewer And Cutter Finger Buff Material Relationship Specialty Start Date End Date Carroll Fuentes DO [address] [place] [address] PCP - General 09/23/11 10/20/22 documented as of this encounter
--- OUTSIDE RECORDS SUMMARY | 2024-04-22 10:57 | XMS_ITS | Encounter Summary ---
Author Organization [facility] [place] [address] Care Team Providers Care Cutting Machine Operator Name Role Phone Carroll Fuentes DO Primary Care Provider Encounter Details Date Type Department Care Team (Late st Contact Info) Description 05/11/2018 Orders [place] [address] Kurt Medina MD [facility] [place] [address] Encounter for long-term (current) use of antibiotics Social History Tobacco Use Types Packs/Day Years [...] as of this encounter Visit Diagnoses Diagnosis Encounter for long-term (current) use of antibiotics documented in this encounter Care Teams Cutting Machine Operator Relationship Specialty Start Date End Date Carroll Fuentes DO [address] [place] [address] PCP - General 09/23/11 10/20/22 documented as of this encounter
--- OUTSIDE RECORDS SUMMARY | 2024-04-22 10:57 | XMS_ITS | Encounter Summary ---
Author Organization [facility] Address [facility] [place] [address] Care Team Providers Care Receiving Worker Name Role Phone AlfredoCarroll allison Primary Care Provider Encounter Details Date Type Department Care Team (Late st Contact Info) Description 05/24/2018 Notes [place] [address] Sushila Feng, RN Social History Tobacco Use [...] Progress Notes * Sushila Feng RN - 05/24/2018 2:49 PM EST OPAT: Order / Recommendation for Post Discharge IV Antibiotic Management New Recommendations as of 05/17/18: ID Diagnosis: Wound Infection LUE Ruptured Mycotic AVF S/P Repair w/Flap Microorganisms being treated: Corynebacterium Antibiotic Allergies: No Known Antibiotic Allergies Antibiotic (one line for each ABx): DECREASE to: Vancomycin 1 Gram IV Every 48 Hours Antibiotic (one line for each ABx): Vancomycin Goal: 10-15. Metronidazole 500 mg PO BID Ciprofloxacin 500 mg PO BID Start date: 04/26/2018 Anticipated stop date: 05/24/2018 Labs: Every Wednesday: CBC, CMP (ADD DIFF w/CBC, Will Instruct on next Vanco Trough after 05/18/18) Last documented weight (kg): 84.3 kg (185 lb 13.6 oz) Last documented height (cm): 178 cm (5' 10.08) Responsible Attending: Kurt Medina MD 14:48: Call placed to [facility], spoke with Family Dinner Service Specialist Ilda. Last dose of IV Vancomycin was given today and PICC line has been discontinued. I reminded her that Dr. Kurt Alas recommended that Mr. Ram start on Keflex 500 mg po BID for 3 months, (which Ilda was aware of). documented in this encounter Plan of Treatment Not on file documented as of this encounter Visit Diagnoses Not on filedocumented in this encounter Care Teams Receiving Worker Relationship Specialty Start Date End Date Carroll Fuentes DO [address] [place] [address] PCP - General 09/23/11 10/20/22 documented as of this encounter
--- OUTSIDE RECORDS SUMMARY | 2024-04-22 10:57 | XMS_ITS | Encounter Summary ---
Author Organization [facility] Address [facility] [place] [address] Care Team Providers Care Foreign Agent Name Role Phone AlfredoCarroll geiger Primary Care Provider [phone] Reason for Visit * Auth/Cert Specialty Diagnoses / Procedures Referred By Shashi ko Referred To Contact Diagnoses Subarachnoid hemorrhage IgA nephropathy Subarachnoid hemorrhage Procedures EMERGENCY IPI Referral ID Status Reason Start Date Expiration Date Visits Re quested Visits Authorized [id number] 1 1 Encounter Details Date Type Department Care Team (Latest Contact Info) Description 06/02/2018 5:10 PM EST - 06/02/2018 11:59 PM EST Hospital Encounter Radiology Library at [place] [address] Discharge Disposition: Home Social History Tobacco Use [...] Procedure Name Priority Date/Time Associated Diagnosis Comments REQUEST FOR 2ND READ CT HEAD AND SPINE STAT 06/02/2018 5:10 PM EST documented in this encounter Results * Request For 2nd Read CT Head [...] images without intravenous contrast were obtained at [facility] on 06/02/2018 ??at 1324. COMPARISON: CT head [...] spine images without intravenous contrast wereobtained at [facility] on 06/02/2018 at 1324. COMPARISON: CT head [...] findings, Charanjit Cooper at 06/02/2018 7:42 PM Kanu Padilla MD IMG OUTSIDE INTERPR ETATION ORDERABLES documented in this encounter Visit Diagnoses Not on filedocumented in this encounter Care Teams Foreign Agent Relationship Specialty Start Date End Date Carroll Fuentes DO [address] [place] [address] PCP - General 09/23/11 10/20/22 documented as of this encounter
--- OUTSIDE RECORDS SUMMARY | 2024-04-22 10:57 | XMS_ITS | Encounter Summary ---
Author Organization [facility] Address [facility] [place] [address] Care Team Providers Care Claims Examiner Name Role Phone AlfredoCarroll allison Primary Care Provider [phone] Reason for Visit * Reason Comments Post Hospital Discharge Kidney Transplant Follow-up Immunotherapy Chronic Kidney Disease Encounter Details Date Type Department Care Team (Latest Contact Info) Description 05/25/2018 9:40 AM EST Office [place] [address] Anup Hawkins MD [facility] [place] [address] Aftercare following organ transplant; [facility] current use of immunosuppressive drug; H/O kidney transplant; IgA nephropathy; CKD (chronic kidney disease) stage 4, GFR 15-29 ml/min; Prophylactic immunotherapy Social History Tobacco Use Types Packs/Day Years [...] Sign Reading Time Taken Comments Blood Pressure 146/100 05/25/2018 10:00 AM EST Pulse 60 05/25/2018 9:30 AM EST Temperature 37 ??C (98.6 ??F) 05/25/2018 9:30 AM EST Respiratory Rate - - Oxygen Saturation 99% 05/25/2018 9:30 AM EST Inhaled Oxygen Concentration - - Weight 89.5 kg (197 lb 6.4 oz) 05/25/2018 9:30 A M EST Height - - Body Mass Index 28.26 04/06/2018 5:18 PM EDT documented in this encounter Progress Notes * Crystal Brown CMA - 05/25/2018 9:40 AM EST Confirmed patient's last name and Reviewed tobacco use, all allergies and meds, dose and frequency. No changes, no missed doses. No additional OTC meds, nutritional or herbal supplements. Reviewed education tab. Reviewed immunizations; due for PPSV23 today Had been wearing compression shelve at night Should this be something similar? * Anup Hawkins MD - 05/25/2018 9:40 AM EST Images from the original note were not included. [facility] Transplant Medicine Follow Up ? Date: 05/25/2018 Patient: Christy Ambrose Transplant Date: 11/26/2002 ? Transplant organ/Indication: ??Kidney / IgA nephropathy, Prograf toxicity ? Transplant ID:??Mr. Christy Ambrose is a 57??y.o. male who is Status Post Kidney transplantation on 11/26/02. Post-op course was significant for delayed graft function, recurrent IgA nephropathy and Prograf toxicity, and the requirement of adjusting his pre-existing anticonvulsants. Patient was initially??referred by his PCP - Dr. Fuentes. Patient is out 15+??years from transplant. He had his leftarm AVF taken down due to massive size, and increased risk for high output CHF. 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 ? Interim Hx: Christy is here with his brother after he developed a severe ischemic, hypoxemic, cardiac and respiratory arrest due to acute rupture of his left arm AVF which was previously taken down. He is in his last days at [facility] in [facility]. His brother is aware that he needs to live in a senior living because he cannot live alone. His mother has left the apt she shared with Christy and she herself is in a senior living. His estimated time of arrest was nearly 20 min but his mentation seems at baseline. His graft creatinine failed to recover completely and his creatinine now ranges between 3.0-3.5 mg/dL. He is clearly in stage 4 CKD. 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 Patient remains on tacrolimus and cellcept. Patient is compliant with his medication regimen. Patient denies any CP, SOB, TORRES or palpitations. Patient denies fever/ chills and denies any N/V/D or change in PO intake. All other review of systems were neither [...] for diabetics, every 5 for non diabetics [place] kidney ultrasound looking for renal cell CA, every 5 years post transplant Bone density assessment every 9-12 years post transplant Annual fasting lipid profile Annual PTH-Vit D3 assessment until normalized Annual spot urine for creatinine, protein, calcium, phosphate, magnesium? ROS: Denies fevers, chills, nausea, vomiting, diarrhea, abd pain, chest pain, sob. All other review of systems were neither positive or negative ? Medications: ?? Current Outpatient Medications: ??? levETIRAcetam (KEPPRA) 500 mg Tablet, Take [...] by mouth daily., Disp: , Rfl: ??? hydrALAZINE (APRESOLINE) 50 mg Tablet, Take 1 tablet by mouth 3 times daily., Disp: , Rfl: ??? metoprolol tartrate [...] by mouth daily. , Disp: , Rfl: ??? acetaminophen (TYLENOL) 500 mg Tablet, Take [...] 3 times daily., Disp: 60 tablet, Rfl:3 ?? Allergies / ADRs: ? Allergies Allergen [...] ? PHYSICAL EXAM: Vitals Office Visit from 05/25/2018 in Solid Organ Transplant at [place] Weight 89.5 kg (197 lb 6.4 oz) Temp 37 ??C (98.6 ??F) Temp src Oral Heart Rate 60 BP 146/100 (Abnormal) Patient Position Sitting SpO2 99 % Gen - AAO x 3 in NAD, chronically ill-appearing Skin - No exanthem. HEENT - Mucous membranes moist. Chest: Lungs clear to ausculatation w/o wheezes/ rhonchi/ crackles. Heart - S1 and S2 clear w/o murmur, gallop, or rub. JVP not elevated. Abd - Soft. + BS. No bruit. Non tender. No organomegaly. Ext - Warm. No cyanosis. No dependent edema. Results for CHRISTY AMBROSE ( ) as of 06/06/2018 21:02 Ref. Range 05/25/2018 08:30 05/25/2018 08:31 WBC Latest Ref Range: 4.0 - 9.5 x10(3)/mcL 4.4 RBC Latest Ref Range: 4.58 - 5.54 x10(6)/mcL 3.06 (L) Hemoglobin Latest Ref Range: 13.7 - 16.5 gm/dL 9.3 (L) Hematocrit Latest Ref Range: 40.5 - 48.5 % 29.2 (L) MCV Latest Ref Range: 82.9 - 93.1 fL 95.4 (H) MCH Latest Ref Range: 27.5 - 32.1 pg 30.4 MCHC Latest Ref Range: 32.0 - 35.7 gm/dL 31.8 (L) RDWSD Latest Ref Range: 36.0 - 45.0 fL 52.3 (H) RDWCV Latest Ref Range: 11.4 - 13.8 % 14.9 (H) Platelets Latest Ref Range: 145 - 357 x10(3)/mcL 190 MPV Latest Ref Range: 7.6 - 12.[address] % Latest Ref Range: 0.7 - 2.6 % 0.[address] Abs Latest Ref Range: 0.030 - 0.120 x10(6)/mcL 0.020 (L) Immature Retic% Latest Ref Range: 0.0 - 15.6 % 6.6 Reticulated Hgb Latest Ref Range: 31.3 - 40.2 pg 34.0 nRBC % Auto Latest Units: % 0.0 nRBC Abs Auto Latest Ref Range: 0.000 - 0.000 x10(3)/mcL 0.000 Neutr Abs (ANC) Latest Ref Range: 1.70 - 6.10 x10(3)/mcL 2.72 Neutrophils % Latest Units: % 62.3 Immature Gran % Latest Units: % 0.50 Lymphocytes % Latest Units: % 21.8 Monocytes % Latest Units: % 10.3 Eosinophils % Latest Units: % 4.4 Basophils % Latest Units: % 0.7 Veronika Gran Abs Latest Ref Range: 0.00 - 0.04 x10(3)/mcL 0.02 Lymphocytes Abs Latest Ref Range: 0.9 - 3.2 x10(3)/mcL 1.0 Monocyte Abs Latest Ref Range: 0.3 - 0.9 x10(3)/mcL 0.4 Eosinophils Abs Latest Ref Range: 0.0 - 0.4 x10(3)/mcL 0.2 Basophils Abs Latest Ref Range: 0.0 - 0.1 x10(3)/mcL 0.0 Sodium Latest Ref Range: 135 - 145 mmol/L 142 Potassium Latest Ref Range: 3.5 - 5.0 mmol/L 5.3 (H) Chloride Latest Ref Range: 98 - 107 mmol/L 109 (H) CO2 Latest Ref Range: 22 - 31 mmol/L 18 (L) Anion Gap Latest Ref Range: 5 - 15 mmol/L 15 BUN Latest Ref Range: 10 - 20 mg/dL 48 (H) Creatinine Latest Ref Range: 0.80 - 1.50 mg/dL 3.08 (H) eGFR Latest Ref Range: >=60 mL/min/1.73 m?? 22 (L) eGFR Latest Ref Range: >=60 mL/min/1.73 m?? 25 (L) Glucose Lvl Latest Ref Range: 65 - 199 mg/dL 97 Calcium Latest Ref Range: 8.5 - 10.5 mg/dL 8.4 (L) Magnesium Latest Ref Range: 0.69 - 1.07 mmol/L 0.86 Phosphorus Latest Ref Range: 2.5 - 4.5 mg/dL 5.6 (H) Uric Acid Latest Ref Range: 3.5 - 8.5 mg/dL 5.6 Total Protein Latest Ref Range: 6.1 - 8.0 gm/dL 5.9 (L) Albumin Latest Ref Range: 3.2 - 5.2 gm/dL 3.5 Total Bilirubin Latest Ref Range: 0.2 - 1.3 mg/dL 0.2 Alk Phos Latest Ref Range: 40 - 120 unit/L 91 AST Latest Ref Range: 0 - 39 unit/L 17 ALT Latest Ref Range: 0 - 55 unit/L 10 U Protein Ran Latest Ref Range: 0 - 12 mg/dL 741 (H) Chol, Total Latest Units: mg/dL 174 Lipid Interpretation Unknown See Note Tacrolimus Lvl Latest Units: ng/mL 16.7 Color UA Latest Ref Range: Yellow Yellow Appearance UA Latest Ref Range: Clear Clear Spec [place] UA Latest Ref Range: 1.002 - 1.030 1.017 pH UA Latest Ref Range: 5.0 - [...] Latest Ref Range: 0 - 3 /HPF 1 RBC UA Latest Ref Range: 0 - 3 /HPF 2 Hyaline Cast UA Latest Ref Range: 0 - 2 /LPF 1 Culture Reflexed Unknown No Prot/Cre Ratio Latest Units: ratio 9.5 U Creatinine Latest Units: mg/dL 78 BKV Urine Result Unknown Not Detected BKV Urine Interp Unknown BK Virus Urine Re... ? Impression/ Plan: Mr. Ambrose is a 57??yr old gentleman w/ hx of kidney transplant who presents to transplant clinic for f/u after his recent prolonged admission for asystolic arrest due to acute profound hemorrhage due to ruptured left arm AVF. ?? Transplant Status/ Graft Function: -s/p donor kidney transplant 11/26/02; CKD stage 4 -etiology of ESRD is secondary to??IgA Nephropathy. Post-Transplant ??Course complicated by delayedgraft function, recurrent IgA and prograf toxicity See changes above for progressive CKD ? Immunosuppression: -patient is consistent/ compliant with his immunosuppressive regimen ? CKD stage 4 dropped Vit D3 and changed to calcitriol 0.5 mcg qod incr losartan to control proteinuria started Procrit 20K units qweekly in SNF -Hgb trending up -patient remains on BID PPI lower dose to 20 mg bid ? PO4/Mg: -controlled, at goal, WNL on labs this AM ? Hypertension: -not controlled -Continue Hydralazine, Diltiazem, Metoprolol, losartan to 100 mg qAM ? Bradycardia: -metoprolol 25mg PO TID ? Metabolic Acidosis: -serum bicarb low -continue sodium bicarbonate PO 650 mg tid with meals RTC 2 months, monthly labs o Discussion with the patient and/or family concerned the following: ? Diagnostic results or recommended studies ? Prognosis; ? Risks and benefits of management; ? Instructions for management; ? Compliance with treatment; ? Risk factor reduction; ? Patient and family education. o Total time 25 of 30 min in direct face to face counseling services manager. documented in this encounter Plan of Treatment Scheduled Orders Name Type Priority Associated Diagnoses Orde r Schedule Cholesterol, total Lab STAT Aftercare following organ transplant rn long term care current use of immunosuppressive drug H/O kidney transplant Expected: 05/21/2018 (Approximate), Expires: 11/17/2018 CBC (with Diff) Lab STAT Aftercare following organ transplant [facility] current use of immunosuppressive drug H/O kidney transplant Expected: 05/21/2018 (Approximate), Expires: 11/17/2018 Magnesium Lab STAT Aftercare following organ transplant [facility] current use of immunosuppressive drug H/O kidney transplant Expected: 05/21/2018 (Approximate), Expires: 11/17/2018 Comprehensive metabolic panel (non-fasting) Lab STAT Aftercare following organ transplant [facility] current use of immunosuppressive drug H/O kidney transplant Expected: 05/21/2018 (Approximate), Expires: 11/17/2018 documented as of this encounter Results * (ABNORMAL) Protein/Creatinine Ratio, urine (05/25/2018 8:31 AM EST) Creatinine, Urine 78 mg/dL [facility] Protein, Urine 741(H) 0 - 12 mg/dL [facility] Protein / Creatinine Ratio, Urine 9.[address] [facility] Urine specimen (specimen) 05/25/2018 8:31 AM EST 05/25/2018 8:35 AM EST Narrative Resulting Agency Comment Spec In Lab Anup Hawkins MD URINE ORDERABLES [facility] [place] [address] * (ABNORMAL) Urinalysis with reflex Culture (05/25/2018 8:31 AM EST) Glucose, Urine Dipstick Negative Negative mg/dL [facility] Protein, Urine Dipstick >=500(A) Negative mg/dL [facility] Bilirubin, Urine Dipstick Negative Negative mg/dL [facility] Comment: Clinical correlation required for positive Urine Bilirubin results as false positive may occur with some drugs and drug related products. If a false positive is suspected a serum total bilirubin should be considered if clinically indicated. Urobilinogen, Urine Dipstick Normal Normal mg/dL [facility] pH, Urn (dipstick) 6.0 5.0 - 8.0 [facility] Blood, Urine Dipstick Negative Negative mg/dL [facility] Ketone, Urine Dipstick Negative Negative mg/dL [facility] Nitrite, Urine Dipstick Negative Negative [facility] Leukocytes, Urine Dipstick Negative Negative [facility] Appearance, Urine Dipstick Clear Clear [facility] Specific [place] Urine Automated 1.017 1.002 - 1.030 [facility] Color, Urine Dipstick Yellow Yellow [facility] Reflex to Culture No [facility] Urine specimen (specimen) 05/25/2018 8:31 AM EST 05/25/2018 8:34 AM EST Narrative Resulting Agency Comment Spec In Lab Anup Hawkins MD URINE ORDERABLES Performing Organization Address [facility] Co de Phone Number [facility] [place] [address] * BKV Quant Urine (05/25/2018 8:31 AM EST) BKV Urine Result Not Detected [facility] BKV Urine Interp BK Virus Urine Result Interpretation Result: BK Virus not detected Specimen type: urine Assay Range: 2.80-7.80 log copies/mL (6.28x10^2 - 6.28x10^7 copies/mL) Methods: Quantitative real-time polymerase chain reaction (PCR) of viral DNA isolated from urine was performed using [employer] (formerly, [employer]) BKV analyte-specific reagents and the [employer] 7500 FAST Real-Time PCR System. In addition, [...] Gen[facility] [employer] [facility] (CGAT) Laboratory at [facility]. It has not been cleared or approved by the FDA. The laboratory is regulated under CLIA as qualified to perform high-complexity testing. This test is used for clinical purposes. It should not be regarded as investigational or for research. [facility] Comment: [VERIFIED DATE]06.01.18 Verified By:Fannie Olivas (Electronic Signature) Urine specimen (specimen) 05/25/2018 8:31 AM EST 05/25/2018 9:36 AM EST Narrative Resulting Agency Comment Spec In Lab Anup Hawkins MD MOLECULAR ORDERAB LES [facility] [place] [address] * (ABNORMAL) Phosphorus (05/25/2018 8:30 AM EST) Phosphorus 5.6(H) 2.5 - 4.5 mg/dL [facility] Blood specimen (specimen) 05/25/2018 8:30 AM EST 05/25/2018 8:34 AM EST Narrative Resulting Agency Comment Spec In Lab Anup Hawkins MD CHEMISTRY ORDERAB LES Performing Organization Address [facility]/ZIP Co de Phone Number [facility] [place] [address] * Uric acid (05/25/2018 8:30 AM EST) Uric Acid 5.6 3.5 - 8.5 mg/dL [facility] Blood specimen (specimen) 05/25/2018 8:30 AM EST 05/25/2018 8:34 AM EST Narrative Resulting Agency Comment Spec In Lab Anup Hawkins MD CHEMISTRY ORDERAB LES Performing Organization Address [facility] Co de Phone Number [facility] [place] [address] * (ABNORMAL) Reticulocyte Count (05/25/2018 8:30 AM EST) Reticulocyte % 0.8 0.7 - 2.6 % [facility] Retic Abs # 0.020(L) 0.030 - 0.120 x10(6)/mc L [facility] Immature Retic% 6.6 0.0 - 15.6 % [facility] Reticulated Hgb 34.0 31.3 - 40.[address] [facility] Blood specimen (specimen) 05/25/2018 8:30 AM EST 05/25/2018 8:34 AM EST Narrative Resulting Agency Comment Spec In Lab Anup Hawkins MD [place] [address] documented in this encounter Visit Diagnoses Diagnosis Aftercare following organ transplant rn long term care current use of immunosuppressive drug H/O kidney transplant Kidney replaced by transplant IgA nephropathy Nephritis and nephropathy, not specified as acute or chronic, with unspecified pathological lesion in kidney CKD (chronic kidney disease) stage 4, GFR 15-29 ml/min Chronic kidney disease, Stage IV (severe) Prophylactic immunotherapy Need for prophylactic immunotherapy documented in this encounter Care Teams Claims Examiner Relationship Specialty Start Date End Date Carroll Fuentes DO [address] [place] [address] PCP - General 09/23/11 10/20/22 documented as of this encounter
--- OUTSIDE RECORDS SUMMARY | 2024-04-22 10:57 | XMS_ITS | Encounter Summary ---
[facility] Organization [facility] [place] [address] Care Team Providers Care Mine Motor Operator Name Role Phone AlfredoCarroll allison Primary Care Provider Reason for Visit * Reason Comments Follow Up Surgery f/u fasciotomy wound s s/p skin grafting dos 04/26 Encounter Details Date Type Department Care Team (Late st Contact Info) Description 05/17/2018 10:20 AM EST Office [place] [address] Laina Disla URBAN SOCIOLOGIST [facility] [place] [address] Surgery follow-up Social History Tobacco Use Types [...] as of this encounter Progress Notes * Laina Disla APRN - 05/17/2018 10:20 AM EST Images from the original note were not included. PLASTIC SURGERY POST OP NOTE Reason for visit: F/U status post procedure Date of surgery: 04/26/18 Procedure(s:) closure of fasciotomy wound with STSG forearm. Complications: None reported HPI: Patient reports that he is doing ok. He has been improving daily. He has been up walking around. He has been applying ointment to his arm. Examination: Left leg donor: 100% epithelialized. Left arm: maturing skin graft. No openings. No signs of infection. Impression: Adama Ram is a 57 y.o. male was seen today for follow-up after the above procedure. Please see the operative note for details. Healing very well with no signs of infection. Plan: Apply regular lotion to your left thigh and left arm daily. Post operative photo taking at today's visit. Follow up with any questions or concerns. I, GÓMEZ SCHMIDT, have performed the documentation for this encounter in the presence of and acting as a scribe for LAINA DISLA APRN. I performed the services which were documented by the scribe, and I agree with the accuracy of the documentation in this encounter. LAINA DISLA APRN documented in this encounter Plan of Treatment Not on file documented as of this encounter Visit Diagnoses Diagnosis Surgery follow-up Follow-up examination, following unspecified surgery documented in this encounter Care Teams Mine Motor Operator Relationship Specialty Start Date End Date Carroll Fuentes DO [address] [place] [address] PCP - General 09/23/11 10/20/22 documented as of this encounter
--- OUTSIDE RECORDS SUMMARY | 2024-04-22 10:57 | XMS_ITS | Encounter Summary ---
Author Organization [facility] Address [facility] [place] [address] Care Team Providers Care Neonatal Icu Coordinator Name Role Phone AlfredoCarroll allison Primary Care Provider [phone] Reason for Visit * Consultation (Routine) - Closed Specialty Diagnoses / Procedures Referred By Shashi ko Referred To Contact Infectious Diseases Diagnoses Wound infection Mycotic aneurysm Kurt Medina MD [facility] [place] [address] Kurt Medina MD [facility] [address] Referral ID Status Reason Start Date Expiration Date V isits Requested Visits Authorized [id number] Closed Assume Subset of Care 04/27/2018 04/27/2019 1 1 Encounter Details Date Type Department Care Team (Late st Contact Info) Description 05/17/2018 11:30 AM EST Office Visit [place] [address] Kurt Medina MD [facility] [place] [address] Surgical wound infection; Encounter for long-term (current) use of antibiotics; Encounter for medication monitoring; H/O kidney transplant Social History Tobacco Use [...] Sign Reading Time Taken Comments Blood Pressure 149/100 05/17/2018 10:41 AM EST Pulse 105 05/17/2018 10:41 AM EST Temperature 36.7 ??C (98 ??F) 05/17/2018 10:41 AM EST Respiratory Rate - - Oxygen Saturation 97% 05/17/2018 10:41 AM EST RA Inhaled Oxygen Concentration - - Weight - - Height - - Body Mass Index - - documented in this encounter Progress Notes * Kurt Medina MD - 05/17/2018 11:30 AM EST Infectious Disease Note Subjective: Feels well. Tolerating the IV vanco, oral cirp and flagyl well. No GI issues. No cough or SOB. No rash. Wound is healing well. No headache, fevers or chills. Most Recent Vitals: 05/17/18 1041 BP: (!) 149/100 Pulse: (!) 105 Temp: 36.7 ??C (98 ??F) SpO2: 97% Gen: alert, no acute distress HEENT: no icterus, OP clear CVS: S1S2 RRR Lungs: left base rale, otherwise CTA Abd: Soft, NT, ND Ext: some edema MS: left UE edema, healing flap. No erythema or openings. Skin: PICC site looks fine. Labs: reviewed. creatinine of 3.0 05/16, vanco trough 20.4 Assessment: 57 year-old gentleman with history of renal transplant in 2002 on cellcept and tacrolimus who presented with ruptured left UE AVF with compartment syndrome of left forearm s/p exploration, repair, brachial artery patch angioplasty, fasciotomies and resection of left radiocephalic AVF with radial artery ligation and split thickness skin grafting and wound vac placement. 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 He did not have path sent or cultures from the acute OR. We decided to give treatment for endovascular infection with prosthetic material in place. Given the limitations of culture, are treating with an empiric regimen for 4 weeks (vancomycin IV and oral ciprofloxacin and metronidazole) . He has tolerated that well. Completing on 05/24. After this is done, he can go on suppression with Keflex 500mg po bid for 3 months, with follow-up with me to decide on further antibiotics. Jacquard Loom Weaver little up from baseline, ?? Recommendations: - decrease vanco to 1 gram IV q 48, follow labs per OPAT. - continue oral metronidazole 500 mg bid and ciprofloxacin 500 mg po bid - complete vanco, cipro and flagyl on 05/24 and d/c/ picc. -after that, start Keflex 500mg po BID for 3 months. -Follow up in 2 months ?? documented in this encounter Plan of Treatment Not on file documented as of this encounter Visit Diagnoses Diagnosis Surgical wound infection Other postoperative infection Encounter for long-term (current) use of antibiotics Encounter for medication monitoring Encounter for therapeutic drug monitoring H/O kidney transplant Kidney replaced by transplant documented in this encounter Care Teams Neonatal Icu Coordinator Relationship Specialty Start Date End Date Carroll Fuentes DO [address] [place] [address] PCP - General 09/23/11 10/20/22 documented as of this encounter
--- OUTSIDE RECORDS SUMMARY | 2024-04-22 10:57 | XMS_ITS | Encounter Summary ---
Author Organization [facility] [place] [address] Care Team Providers Care Plastics Engineering Teacher Name Role Phone Carroll Fuentes DO Primary Care Provider [phone] Encounter Details Date Type Department Care Team (Late st Contact Info) Description 05/11/2018 Orders Only [place] [address] Kurt Medina MD [facility] [place] [address] Encounter for long-term (current) use of antibiotics [...] antibiotics documented in this encounter Care Teams Plastics Engineering Teacher Relationship Specialty Start Date End Date Carroll Fuentes DO [address] [place] [address] PCP - General 09/23/11 10/20/22 documented as of this encounter
--- OUTSIDE RECORDS SUMMARY | 2024-04-22 10:57 | XMS_ITS | Encounter Summary ---
Author Organization [facility] Address [facility] [place] [address] Care Team Providers Care Supervisor Purification Name Role Phone Alfredo, Carroll MIX Primary Care Provider [phone] Encounter Details Date Type Department Care Team (Late st Contact Info) Description 05/25/2018 10:10 AM EST Office Visit [place] [address] Tessa Flores, LOG SORTING SUPERVISOR [facility] [place] [address] Status post kidney transplant Social History Tobacco [...] of this encounter Progress Notes * Tessa lFores MSW - 05/25/2018 10:10 AM EST Worker was asked to meet with Adama and his brother as they had some concerns about the next steps in Adama's housing plan. Adama was hospitalized here at [facility] recently then went to [facility]. Worker reviewed the inpatient notes that talked about completing a ID ad terminal makeup operator care Medicaid application. Dr. Hawkins recommends a supervides setting for Adama like a fpc. Worker spoke to [facility] who said that the plan was to transfer Adama [facility] ad terminal makeup operator placement. At this time there was nothing further for worker to do. Worker met with Adama and his brother. Adama's brother said that they have waited for 3 weeks for a bed to become [facility] and Adama is slated to be transferred tomorrow. Adama said that they are working on an assisted living facility but there is many things that are required like notes from [facility] and such. Worker explained that since [facility] initially sent the notes to [facility] would have them. Worker also said that the facility would have a discharge planning team just like [facility]. Adama and his brother thanked worker for the information. documented in this encounter Plan of Treatment Not on file documented as of this encounter Visit Diagnoses Diagnosis Status post kidney transplant Kidney replaced by transplant documented in this encounter Care Teams Supervisor Purification Relationship Specialty Start Date End Date Carroll Fuentes DO [address] [place] [address] PCP - General 09/23/11 10/20/22 documented as of this encounter
--- OUTSIDE RECORDS SUMMARY | 2024-04-22 10:59 | XMS_ITS | Encounter Summary ---
Author Organization [facility] Address [facility] Laura jen [place] [id number] Care Team Providers Care Street Commissioner Name Role Phone Carroll Garcia Primary Care Provider [phone] Reason for Referral * Consultation (Routine) - Closed Specialty Diagnoses / Procedures Referred By Contac t Referred To Contact Infectious Diseases Diagnoses Wound infection Mycotic aneurysm Kurt Medina MD [facility] [place] [address] Kurt Medina MD [facility] [place] [address] Referral ID Status Reason Start Date Expiration Date V isits Requested Visits Authorized [id number] Closed Assume Subset of Care 04/27/2018 04/27/2019 1 1 Reason for Visit * Reason Comments Trauma Nine * Auth/Cert Specialty Diagnoses / Procedures Referred By Contac t Referred To Contact Diagnoses Hypertension, unspecified type Hemorrhagic shock left arm open wounds s/p fistula repair and fasciotomies Procedures @REPAIR, RUPTURED AXILLARY OR BRACHIAL ARTERY ANEURYSM BY ARM INCISION (WRVU *) DEBRIDEMENT SKIN, SUBCU, MUSCLE, UPPER EXTREMITY (WRVU 2.7) Referral ID Status Reason Start Date Expiration Date Visits Re quested Visits Authorized [id number] 1 1 Encounter Details Date Type Department Care Team (Latest Contact Info) Description 04/06/2018 12:58 PM EDT - 05/04/2018 1:15 PM EDT Hospital Encounter [address] [place] [address] Erwin Hernandez MD [facility] DR [place] [address] Lida Peter MD [facility] [place] [address] Chase Olvera MD [facility] [place] [address] Hypertension, unspecified type; Cerebral infarction, unspecified mechanism; Cerebrovascular accident (CVA) due to embolism of precerebral artery; End stage renal disease; Hemorrhagic shock; Wound infection; Mycotic aneurysm; Chest pain, unspecified type; H/O kidney transplant Discharge Disposition: Detention Facility Social History Tobacco Use Types Packs/Day [...] Sign Reading Time Taken Comments Blood Pressure 125/83 05/04/2018 11:31 AM EDT Pulse 55 05/04/2018 11:31 AM EDT Temperature 36.5 ??C (97.7 ??F) 05/04/2018 1 1:31 AM EDT Respiratory Rate 16 05/04/2018 11:3 1 AM EDT Oxygen Saturation 100% 05/04/2018 11: 31 AM EDT Inhaled Oxygen Concentration - - Weight 84.3 kg (185 lb 13.6 oz) 04/27/2018 9:27 AM EDT Height 178 cm (5' 10.08) 04/06/2018 5:18 PM EDT Body Mass Index 26.61 04/06/2018 5:18 PM EDT documented in this encounter Discharge Summaries * Tristin Marrero MD - 05/04/2018 10:30 AM EDT Images from the original note were not included. Inpatient - Discharge Summary Patient Name: Christy Ambrose Patient Age: 57 y.o. Birthdate: 1960 Admit date: 04/06/2018 Discharge date and time: 05/04/2018 Attending Physician: Chase Olvera MD Discharge Diagnoses (Hospital Problems) and Secondary Diagnoses (Chronic Problems): Active Hospital Problems Diagnosis ??? Hemorrhagic shock Resolved Hospital Problems No resolved problems to display. Active Non-Hospital Problems Diagnosis ??? Primary papillary carcinoma of left kidney ??? Renal mass ??? Gastrointestinal hemorrhage ??? Bradycardia ??? Left renal mass ??? TRISTIAN (acute kidney injury) ??? Weight loss ??? CKD (chronic kidney disease) stage 4, GFR 15-29 ml/min ??? 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 H/O kidney transplant ??? Encounter for long-term (current) use of other medications ??? Aftercare following organ transplant ??? Squamous cell carcinoma of skin of other parts of face ??? Atopic rhinitis ??? Injury of head ??? Non-neoplastic nevus ??? Varicose veins of lower extremities ??? Anticoagulated on Coumadin ??? Rosacea ??? Acne rosacea ??? Nevus ??? Colon polyp ??? BCC (basal cell carcinoma of skin) ??? 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 Kidney replaced by transplant Dx replacement utility run on deactivated IMO Dx [id number] ??? Gout ??? Hypertension ??? Left leg DVT ??? Epilepsy ??? End stage renal disease -due to IGA nephropathy donor kidney transplant secondary to ESRD Operations/Major Procedures: 04/06/2018: Exploration of LUE AVF, repair of AVF, brachial artery patch angioplasty, Axillary venous phlebotomy, Forearm and hand fasciotomies 04/14/2018: Sharp excisional debridement of skin, subcutaneous tissue, and muscle, Partial closure of open fasciotomies, Wound vac negative pressure therapy dressing placement 04/19/2018: ??Left arm distal fistula ligation. Left arm open wound vac dressing change. 04/26/2018: Left arm split thickness skin graft History of Presentation: 57 y.o. male w hx of IgA nephropathy s/p donor renal transplant 2002 (on tacrolimus and cellcept) complicated by delayed graft function and recurrent IgA nephropathyand Prograf toxicity, laparoscopic L radical nephrectomy May 2017 for papillary carcinoma, HTN, epilepsy, and prior TBI who presents to [facility] s/p LUE bleeding with PEA arrest. Description of events leading up to injury includes: pt had called his mother earlier today to report leaking from his LUEAVF site. EMS arrived and found pt in a pool of blood in bathroom, pulseless and unresponsive. Performed several rounds of compressions and epi with ROSC. Tourniquets applied in field at approx 10 AM. Pt intubated in field. Pt taken to [facility], where second tourniquet applied and pt received 6U PRBC. Transferred to [facility] for further care. Of note, per Dr. Olvera note from September 2017, pt has had issues with L AVF previously, requiringrevision due to massive size. Primary survey revealed: airway secured w 7-5 ETT at 25 cm at lips, equal breath sounds/respirations, present 2+ peripheral pulses in RUE and BLE with stable vital signs and no signs of bleeding, GCS11T (6 - Follows simple motor commands, 1 - Makes no noise, 4 - Opens eyes on own), and complete exposure. Hospital Course: Pt admitted and taken to the OR emergently. In surgery, ruptured upper extremity AVF. Pt admitted to ICU for postop monitoring. Pt slowly recovered and was able to transfer to floor status. Pt's recovery from there went well however he required repeat trips to the OR. IN surgery: Healthy appearing tissues with granulation tissue. Small amount of necrotic muscle and subcutaneous tissue debrided. Proximal and distal aspects of incisions closed. Wound vac placed. 1 piece of black sponge. Pt re-admitted to floor. Pt required a return to the OR: left RC-AVF was foundto be severely aneurysmal, but no signs of infection. Significant edema. The wound bed from forearmAVF ligation was clean with healthy granulation tissue. The wound vac was replaced, with good seal.Pt returned to floor. Plastic surgery consulted and taken to OR: good granulation tissue to left arm wound. Skin graft with wound vac applied and pt returned to floor. Wound vac removed POD5 and graft appears to be takingwell. Dressing applied to be changed every other day until follow-up with Plastic surgery as listedbelow. Pt's left thigh donor site with sterile dressing in place, to remain until 05/10/2018 follow-up. For skin graft (Left arm): -Apply bacitracin and xeroform to your skin graft. Change dressing every other day for a week (until 05/09). -After a week, you may begin applying a thin lip gloss layer of Aquaphor to your skin graft twice daily. For the pink dressing on left thigh: -Leave the dressing (Alleyn) in place for two weeks after your surgery (until 05/10). -This dressing must remain dry - Sponge bathe only. -Once the dressing is removed you may apply a thin lip gloss layer of Aquaphor to the area twice daily. Transplant surgery consulted for input on hypertension and BP control. Recommendations resulted in BP regimen current at time of d/c. BP 123/79 Pulse 54 Temp 36.8 ??C (98.2 ??F) (Oral) Resp 16 Ht 178 cm (5' 10.08) Wt 84.3 kg (185 lb 13.6 oz) SpO2 99% BMI 26.61 kg/m?? Important Studies and Lab Data: Labs: Lab Results Component Value Date WBC 5.0 05/03/2018 RBC 2.64 (L) 05/03/2018 HGB 8.2 (L) 05/03/2018 HCT 25.1 (L) 05/03/2018 MCV 95.1 (H) 05/03/2018 MCH 31.1 05/03/2018 MCHC 32.7 05/03/2018 PLATELET 160 05/03/2018 RDWCV 15.6 (H) 05/03/2018 Lab Results Component Value Date Sodium 131 (L) 05/04/2018 Potassium 4.1 05/04/2018 Chloride 99 05/04/2018 CO2 19 (L) 05/04/2018 BUN 40 (H) 05/04/2018 Creatinine 3.05 (H) 05/04/2018 Glucose Lvl 100 05/04/2018 Studies: none Discharge Conditions/Prognosis: Good [facility] [address] [place] [id number] Discharge Medications: Your Medications New Medications Dose Details ciprofloxacin 500 mg Tab Commonly known as: CIPRO Take 1 tablet by mouth 2 times daily for 28 days. 500 mg Quantity: 56 tablet Refills: 0 metroNIDAZOLE 500 mg Tab Commonly known as: FLAGYL Take 1 tablet by mouth 2 times daily for 28 days. Replaces: metroNIDAZOLE 0.75 % Crea 500 mg Quantity: 56 tablet Refills: 0 senna-docusate 8.6-50 mg Tab Commonly known as: PERICOLACE Take 2 tablets by mouth 2 times daily. 2 tablet Quantity: 60 tablet Refills: 11 vancomycin 1,000 mg Solr Commonly known as: VANCOCIN Inject 1,000 mg into the vein daily for 28 days. 1 g Quantity: 1 each Refills: 0 Continued medications with new dosing Dose Details acetaminophen 500 mg Tab Commonly known as: TYLENOL Take 2 tablets by mouth every 6 hours. What changed: ?? when to take this ?? reasons to take this ?? additional instructions 1000 mg Quantity: 30 tablet Refills: 1 hydrALAZINE 50 mg Tab Commonly known as: APRESOLINE Take 1 tablet by mouth 3 times daily. What changed: when to take this 50 mg Refills: 0 losartan 50 mg Tab Commonly known as: COZAAR Take 1 tablet by mouth every morning. What changed: ?? medication strength ?? how much to take 50 mg Quantity: 90 tablet Refills: 3 metoprolol tartrate 50 mg Tab Commonly known as: LOPRESSOR Take 1 tablet by mouth 3 times daily. What changed: ?? how much to take ?? how to take this ?? when to take this ?? additional instructions 50 mg Refills: 0 * tacrolimus 1 mg Cap Commonly known as: PROGRAF Take 1 capsule by mouth nightly. What changed: ?? how much to take ?? how to take this ?? when to take this ?? additional instructions 1 mg Refills: 0 * tacrolimus 0.5 mg Cap Commonly known as: PROGRAF Take 3 capsules by mouth daily. What changed: You were already taking a medication with the same name, and this prescription was added. Make sure you understand how and when to take each. 1.5 mg Refills: 0 * This list has 2 medication(s) that are the same as other medications prescribed for you. Read thedirections carefully, and ask your doctor or other care provider to review them with you. Continued medications, unchanged Dose Details allopurinol 100 mg Tab Commonly known as: ZYLOPRIM Take 1 and 1/2 tablet daily. Quantity: 45 tablet Refills: 11 cholecalciferol (Vitamin D3) 50,000 unit Cap Take [...] needed for Constipation. 100 mg Refills: 0 levETIRAcetam 500 mg Tab Commonly known as: KEPPRA Take 1 pill in a.m. and half a pill in p.m. Quantity: 45 tablet Refills: 11 levothyroxine 88 mcg Tab Commonly known as: SYNTHROID Take 88 mcg by mouth daily. 88 mcg Refills: 0 multivitamin Cap Take 1 capsule [...] 20 mg Quantity: 180 tablet Refills: 3 sodium bicarbonate 650 mg Tab Take 1 tablet by mouth 3 times daily. 650 mg Quantity: 270 tablet Refills: 3 STOPPED Medications metroNIDAZOLE 0.75 % Crea Commonly known as: METROCREAM Replaced by: metroNIDAZOLE 500 mg Tab warfarin 5 mg Tab Commonly known as: COUMADIN Updated Allergies/ADRs: Allergies Allergen Reactions ??? Benazepril Hcl ??? Codeine Other (See Comments) Patient does not know reaction ??? Hydrochlorothiazide ??? Pollen Extracts Sneezing/runny nose Follow-up Recommendations for Providers: Please draw weekly CBC/CMP with results sent to [facility] Infectious disease. See wound care instructions below. Instructions Given to Patient at Discharge: Patient Instructions Patient Instructions You were admitted on 04/06/2018 after having your left arm ruptured fistula repaired and wound management. Dr. Peter will want you to follow up in clinic. This appointment will be scheduled and mailed to you. If you do not hear from our office in two weeks, give us a call at the number below. Your follow up is very important to us. Call your doctor if: Any fever, any drainage, redness of your wound, increased pain or change in temperature of your arm or around your incision Activity level: No heavy lifting with your left hand until cleared in follow up. Do not lift more than a gallon of milk. Diet: Resume your previous regular diet. Pain control: Use over the counter tylenol for pain control. For any problems or questions please call [phone] JAGJIT FallonN, senior operator Nurse Clinician For issues on weeknights after 5pm and weekends please call [phone] and ask for the Vascular Fellow retail parts professional. General Instructions Plastic Surgery Wound Care Instructions For your skin graft (Left arm): -Apply bacitracin and xeroform to your skin graft. Change dressing every other day for a week (until 05/09). -After a week, you may begin applying a thin lip gloss layer of Aquaphor to your skin graft twice daily. For the pink dressing on your left thigh: -Leave the dressing (Alleyn) in place for two weeks after your surgery (until 05/10). -This dressing must remain dry - Sponge bathe only. -Once the dressing is removed you may apply a thin lip gloss layer of Aquaphor to the area twice daily. Complications Call your doctor with the following signs of a problem: ?? a temperature over 100.4 F or 38 C ?? redness at the incision line that spreads away from the incision after the first 48 hours ?? thick yellow, foul smelling drainage ?? increasing pain that is not relieved by your pain medicine Contact your Doctor To make an appointment or for questions about scheduling, please contact our administrative officesat [phone] For clinical questions, please call our nurses at [phone] Both offices are open Wednesday thru Wednesday 8a - 5p. With emergencies after hours, call the hospital in file operator at [phone] and ask for the Plastic Surgery Resident retail parts professional. Future Appointments and Orders Future Appointments and Orders Future Appointments Provider Department Dept Phone 05/17/2018 10:20 AM Laina Disla APRN Plastic Surgery at [place] Arrive at: Election Clerk Area 4M [phone] 05/17/2018 11:30 AM Kurt Medina MD Infectious Disease at [place] Arrive at: [facility] Area [phone] 05/17/2018 12:30 PM Nilda Minaya RN Vascular Surgery at [place] Arrive at: [facility] Clerk Area 3V [phone] 05/27/2018 10:15 AM Lida Peter MD Vascular Surgery at [place] Arrive at: Election Clerk Area 08/18/2018 10:30 AM Chanel Smith MD Dermatology at [facility] [address] [phone] Future Orders Complete By Expires OPAT: Order / Recommendation for Post Discharge IV Antibiotic Management [USQ499 CPT(R)] As directed Process Instructions: If no progress note charted, please enter Clinical details in comments. Scheduling Instructions: Comments: Please Fax all results to: OPAT Program Infectious Disease Section [facility], [place] [address] FAX: Line care instructions per [facility] OPAT Program protocol. After hours, please contact the Infectious Disease Physician retail parts professional at . If this order was signed greater than 72 hours prior to [facility] discharge, please call to confirm the accuracy of this order. Questions: ID Diagnosis: Wound Infection LUE Ruptured Mycotic AVF S/P Repair w/ Flap Microorganisms being treated: Corynebacterium Antibiotic Allergies: No Antibiotic Allergies Antibiotic (one line for each ABx): Vancomycin 1 gm IV q24h Start date: 04/26/2018 Anticipated stop date: 05/24/2018 Labs: Every Wednesday: CBC, CMP Comment - Q Wednesday Vanco trough Responsible Attending: Kurt Medina MD Last documented weight (kg): 84.3 kg (185 lb 13.6 oz) Last documented height (cm): 178 cm (5' 10.08) Discharge References/Attachments: Discharge References/Attachments None Electronically Signed By: Tristin Marrero MD 05/04/2018 documented in this encounter Discharge Instructions * Discharge Instructions* Nilda Minaya RN - 05/03/2018 2:11 PM EDT Plastic Surgery Wound Care Instructions For your skin graft (Left arm): -Apply bacitracin and xeroform to your skin graft. Change dressing every other day for a week (until 05/09). -After a week, you may begin applying a thin lip gloss layer of Aquaphor to your skin graft twice daily. For the pink dressing on your left thigh: -Leave the dressing (Alleyn) in place for two weeks after your surgery (until 05/10). -This dressing must remain dry - Sponge bathe only. -Once the dressing is removed you may apply a thin lip gloss layer of Aquaphor to the area twice daily. Complications Call your doctor with the following signs of a problem: ?? a temperature over 100.4 F or 38 C ?? redness at the incision line that spreads away from the incision after the first 48 hours ?? thick yellow, foul smelling drainage ?? increasing pain that is not relieved by your pain medicine Contact your Doctor To make an appointment or for questions about scheduling, please contact our administrative officesat [phone] For clinical questions, please call our nurses at [phone] Both offices are open Wednesday thru Wednesday 8a - 5p. With emergencies after hours, call the hospital in file operator at [phone] and ask for the Plastic Surgery Resident retail parts professional. * Patient Instructions* Nilda Minaay RN - 04/07/2018 8:30 AM EDT Patient Instructions You were admitted on 04/06/2018 after having your left arm ruptured fistula repaired and wound management. Dr. Peter will want you to follow up in clinic. This appointment will be scheduled and mailed to you. If you do not hear from our office in two weeks, give us a call at the number below. Your follow up is very important to us. Call your doctor if: Any fever, any drainage, redness of your wound, increased pain or change in temperature of your arm or around your incision Activity level: No heavy lifting with your left hand until cleared in follow up. Do not lift more than a gallon of milk. Diet: Resume your previous regular diet. Pain control: Use over the counter tylenol for pain control. For any problems or questions please call [phone] YEIMY Fallon, senior operator Nurse Clinician For issues on weeknights after 5pm and weekends please call [phone] and ask for the Vascular Fellow retail parts professional. documented in this encounter Medications at Time of Discharge Medication Sig Dispensed Refills Start Date End Date senna-docusate (PERICOLACE) 8.6-50 mg Tablet Take 2 tablets by mouth 2 times daily. 60 tablet 11 05/04/2018 07/19/2018 tacrolimus (PROGRAF) 1 mg Capsule Take 1 capsule by mouth nightly. 05/04/2018 2018 tacrolimus (PROGRAF) 0.5 mg Capsule Take 3 capsules by mouth daily. 05/05/2018 2018 metroNIDAZOLE (FLAGYL) 500 mg Tablet Take 1 tablet by mouth 2 times daily for 28 days. 56 tablet 04/26/2018 05/24/2018 ciprofloxacin (CIPRO) 500 mg Tablet Take 1 tablet by mouth 2 times daily for 28 days. 56 tablet 04/26/2018 05/24/2018 acetaminophen (TYLENOL) 500 mg Tablet Take 2 [...] by mouth 3 times daily. 05/03/2018 2018 vancomycin (VANCOCIN) 1,000 mg Recon Soln Inject 1,000 mg into the vein daily for 28 days. 1 each 04/26/2018 05/13/2018 cholecalciferol, Vitamin D3, 50,000 unit Capsule Take 1 capsule by mouth once a week. 12 capsule 3 03/01/2018 07/19/2018 allopurinol (ZYLOPRIM) 100 mg Tablet Take 1 and 1/2 tablet daily. 45 tablet 11 01/17/2018 07/19/2018 levETIRAcetam (KEPPRA) 500 mg Tablet Take 1 pill in a.m. and half a pill in p.m. 45 tablet 11 10/20/2017 05/25/2018 pantoprazole (PROTONIX) 20 mg Tablet, Delayed Release [...] as of this encounter Progress Notes * Danny Quispe RN - 05/04/2018 1:07 PM EDT Patient Name: Christy Ambrose Patient Age: 57 y.o. Birthdate: 1960 Admit date: 04/06/2018 Attending Physician: Chase Olvera MD Pt off unit in own clothes with belongings. DC packet sent with ambulance staff. Report called to facility. Questions encouraged and answered. VSS. A+O. * Padmini Ruiz RN - 05/04/2018 11:30 AM EDT Pt accepted bed offer at [facility]Note 2[facility] for transfer today. Pt qualifies for ambulance transfer due to being on bed alarm while here, being impulsive and history of TBI. Pt will be transferred at Noon via [facility]. I called pt brother Lucas to inform. He was with JANICE Guzman from [facility] [employer] [facility]. Our SW ChellyBenitoRobe spoke with Lucas as well about continuing the LT Medicaid application process. Nurse to Nurse report number given to pt's staff nurse Danny. Discharge envelope started; still needed discharge summary, medication sheets and prescription added. Please call CM if needed for further pt discharge needs. Padmini Ruiz RN [phone] * Reynaldo Jade - 05/04/2018 8:58 AM EDT Office of Care Management/Coding Specialist Home Health Patient Name: Christy Ambrose : 1960 Patient has been offered a SNF bed at [facility] for today, 05/04/18 [facility] arranged for a 12:00 pm transport. Ambulance will need: Medicare ambulance form completed and signed (MD or Fat Pressroom Worker RN/NAIL MILL WORKER) Copy of patient demographics [place] [facility] DNR/DNI order, if active No MD to MD report necessary Please call Nursing Report to [phone], ask for fitter up. Info to accompany patient: Narcotic Prescriptions Copies of Medication Administration Records and IV sheets for past 10 days. Plan: Coding Specialist Home Health will be available to the patient and Fat Pressroom Worker-RN and/or Social Workerfor further assistance. Patient will be discharged to: [address] [id number] Reynaldo Jade, Coding Specialist Home Health * Chasidy Monahan PA - 05/04/2018 7:47 AM EDT Images from the original note were not included. 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 He was taken to the OR with vascular surgery for??exploration, repair of AVF with patch angioplasty and??L??forearm and hand fasciotomies.??Plastic surgery is consulted for management of the fasciotomy wounds. The patient underwent wound vac changes to the wound, the wound became clean with good granulation tissue and skin grafting was performed on 04/26. ?? S: - NAEON - Pain well-controlled and patient no longer requiring scheduled Tylenol - LUE: dressings removed and Aquaphor applied to skin graft on morning rounds O: Temp: [36.3 ??C (97.3 ??F)-37.1 ??C (98.8 ??F)] Resp: [16] BP: (114-159)/(78-101) Intake/Output Summary (Last 24 hours) at 05/04/2018 0747 Last data filed at 05/04/2018 0615 Gross per 24 hour Intake 2271 ml Output 3000 ml Net -729 ml Exam: General: NAD, Alert, oriented Resp: Nonlabored, symmetric chest movement LUE: VAC removed 05/02. Graft with 100% take. Dressings removed; Aquaphor applied to well adhered skin graft Left thigh: Allevyn dressing in place with moderate strike through. No active leaking around dressing. Recent Results (from the past 24 hour(s)) Vancomycin, trough Result Value Ref Range Vanc Trough 14.2 mg/L Basic Metabolic Panel (non-fasting) Result Value Ref Range Glucose Lvl 100 65 - 199 mg/dL BUN 40 (H) 10 - 20 mg/dL Creatinine 3.05 (H) 0.80 - 1.50 mg/dL Sodium 131 (L) 135 - 145 mmol/L Potassium 4.1 3.5 - 5.0 mmol/L Chloride 99 98 - 107 mmol/L CO2 19 (L) 22 - 31 mmol/L Anion Gap 13 5 - 15 mmol/L Calcium 8.0 (L) 8.5 - 10.5 mg/dL eGFR 22 (L) >=60 mL/min/1.73 m?? eGFR 25 (L) >=60 mL/min/1.73 m?? Infectious Disease with Microbiology Results Trends (Last 3 days) 71h Max Temp (??C) 37.4 (99.3) 04/29 2009 Heart Rate 72 04/28 2320 BP (!) 168/101 05/01 0005 Resp 20 05/01 0005 SpO2 (%) 99 04/30 1504 Most Recent Creatinine 2.66 05/01 400 WBC 5.0 05/01 400 BUN 36 05/01 400 Antimicrobials Medication Dose/Rate, Route, Frequency Last Action ciprofloxacin (CIPRO) tablet 500 mg 500 mg, Oral, BID Given: 05/01 619 metroNIDAZOLE (FLAGYL) tablet 500 mg 500 mg, Oral, BID Given: 04/30 2024 vancomycin- intermittent dosing per levels No Dose/Rate, NOT APPLICAB, Per Pharmacy Ordered A/P: Christymaty Ambrose??is a 57 y.o.??male??w/ renal transplant who p/w ruptured LUE AVF s/p exportation and repair, forearm fasciotomy, carpal tunnel release by Dr Sparks, left forearm wound managed was being managed with VAC. Patient underwent skin grafting for wound closure (04/26). Dressings remain intact on left thigh (Allevyn) and skin graft (LUE) with 100% take upon VAC takedown 05/02. Skin teja t continues to heal well without signs of graft loss or infection. ?? Plan: - LUE: Has been advanced to Aquaphor (thin lip gloss layer) BID. No need for bandaging overtop (unless desire to protect clothing) - Left thigh: Allevyn dressing to remain in place and dry for 2wks post-op (until 05/10) - f/u in Plastic Surgery clinic as scheduled below (05/17) - Continue abx per ID/primary:??vanc/flagyl/cipro - Ok for discharge to rehab from plastic surgery perspective - Appreciate rest of care by primary team Future Appointments Date Time Provider Department Center 05/17/2018 10:20 AM Laina Disla APRN [facility] 05/17/2018 11:30 AM Kurt Medina MD [facility] 05/17/2018 12:30 PM Nilda Minaya RN [facility] 08/18/2018 10:30 AM Chanel Smith MD [facility] PAN[facility]ITO Rios Pager: [phone] * Nayeli Wilde RN - 05/03/2018 8:29 PM EDT Images from the original note were not included. PRN dressing change Dressing prior to change Dressing after change * Natalya Wan MSW - 05/03/2018 5:01 PM EDT [employer] MILL WORKER and DONAVAN Chaidez met with Christy, his mother Ilda (HDPOA), and his brother Lucas (HDPOA and FPOA). All three parties accepted a bed offer at [facility] for rehab and hope thatif a bed becomes available at [facility] Christy can be transferred. Family to continue tocomplete [facility] Choices for Care and work on long term acute care registered nurse supportive living with [facility] when mother goes to assisted living. * Nicole Hamilton LD - 05/03/2018 2:04 PM EDT Nutrition Progress Note Christy Ginna Ambrose is a 57 y.o. male Reason for intervention: Follow up Nutrition Recommendations: Could liberalize diet to [facility]/Cardiac Continue to monitor potassium trends Monitor weight trends Patient Active Problem List Diagnosis Code ??? Epilepsy G40.909 ??? End stage renal disease N18.6 ??? Gout M10.9 ??? Hypertension I10 ??? Left leg DVT I82.402 ??? Kidney replaced by transplant Z94.0 ??? IgA nephropathy N02.8 ??? BCC (basal cell carcinoma of skin) C44.91 ??? Acne rosacea L71.9 ??? Nevus D22.9 ??? Rosacea L71.9 ??? Anticoagulated on Coumadin [...] N18.4 ??? 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 H/O kidney transplant Z94.0 ??? TRISTIAN (acute kidney injury) N17.9 ??? Weight loss R63.4 ??? Gastrointestinal hemorrhage K92.2 ??? Bradycardia R00.1 ??? Left renal mass N28.89 ??? Renal mass N28.89 ??? 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 Hemorrhagic shock R57.8 Past Medical History: Diagnosis Date ??? BP (high blood pressure) ??? DVT (deep venous thrombosis) ??? Gout ??? Hypertension ??? Kidney problem ??? Pneumonia ??? TBI (traumatic brain injury) 1979 Active Orders Diet Potassium Controlled diet Frequency: Effective Now Number of Occurrences: Until Specified Admit Weight: 91.6 kg Estimated body mass index is 26.61 kg/m?? as calculated from the following: Height as of this encounter: 178 cm (5' 10.08). Weight as of this encounter: 84.3 kg (185 lb 13.6 oz). [place] Body Weight (IBW): [place] body weight: 73.2 kg (161 lb 5.4 oz) Adjusted ideal body weight: 77.6 kg (171 lb 2.3 oz) Today's medications: cellcept, prograf, miralax, pericoalce, sodium bicarbonate Lab Results Component Value Date NA 135 05/03/2018 K 4.2 05/03/2018 CL 101 05/03/2018 CO2 20 (L) 05/03/2018 BUN 35 (H) 05/03/2018 CREATININE 2.58 (H) 05/03/2018 GLUCOSE 99 05/03/2018 MAGNESIUM 0.60 (L) 04/06/2018 CALCIUM 7.9 (L) 05/03/2018 PHOS 3.3 04/06/2018 AST 22 04/06/2018 ALT 20 04/06/2018 ALKPHOS 57 04/06/2018 BILITOT 0.3 04/06/2018 BILIDIR 0.2 05/15/2017 TRIG 76 11/26/2016 Last Bowel Movement: 05/02/18 Skin: Incision - left lower arm Incision - left upper thigh Assessment: Chart reviewed, patient visited for follow up. Reports good appetite, consuming most food provided at meals. Denies any nausea or abdominal discomfort in relation to po intakes. Potassiumnormal, could consider liberalizing diet to [facility]. Patient denies any questions/concerns rega rding current diet. Will continue to monitor. JERICHO Marion Beeper #: [phone] * Javier Nolan MD - 05/03/2018 7:44 AM EDT Images from the original note were not included. 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 He was taken to the OR with vascular surgery for??exploration, repair of AVF with patch angioplasty and??L??forearm and hand fasciotomies.??Plastic surgery is consulted for management of the fasciotomy wounds. The patient underwent wound vac changes to the wound, the wound became clean with good granulation tissue and skin grafting was performed on 04/26. ?? S: - NAEON - Pain well-controlled -LUE dressed with bacitracin/xeroform and covered with ABDs and Kerlix O: Temp: [36.2 ??C (97.2 ??F)-36.7 ??C (98.1 ??F)] Heart Rate: [54] Resp: [16-18] BP: (139-169)/(85-105) Intake/Output Summary (Last 24 hours) at 05/03/2018 0751 Last data filed at 05/03/2018 0600 Gross per 24 hour Intake 1186 ml Output 4050 ml Net -2864 ml Exam: General: NAD, Alert, oriented Resp: Nonlabored, symmetric chest movement LUE: VAC removed 05/02. Graft with 100% take. Re-dressed with bacitracin and xeroform and covered with ABD pads and Kerlix. Next dressing change to occur 05/04. Left thigh: Allevyn dressing in place with moderate strike through. No active leaking around dressing. Recent Results (from the past 24 hour(s)) Basic Metabolic Panel (non-fasting) Result Value Ref Range Glucose Lvl 99 65 - 199 mg/dL BUN 35 (H) 10 - 20 mg/dL Creatinine 2.58 (H) 0.80 - 1.50 mg/dL Sodium 135 135 - 145 mmol/L Potassium 4.2 3.5 - 5.0 mmol/L Chloride 101 98 - 107 mmol/L CO2 20 (L) 22 - 31 mmol/L Anion Gap 14 5 - 15 mmol/L Calcium 7.9 (L) 8.5 - 10.5 mg/dL eGFR 27 (L) >=60 mL/min/1.73 m?? eGFR 31 (L) >=60 mL/min/1.73 m?? Hemogram Result Value Ref Range WBC 5.0 4.0 - 9.5 x10(3)/mcL RBC 2.64 (L) 4.58 - 5.54 x10(6)/mcL Hemoglobin 8.2 (L) 13.7 - 16.5 gm/dL Hematocrit 25.1 (L) 40.5 - 48.5 % MCV 95.1 (H) 82.9 - 93.1 fL MCH 31.1 27.5 - 32.1 pg MCHC 32.7 32.0 - 35.7 gm/dL Platelets 160 145 - 357 x10(3)/mcL RDWSD 54.3 (H) 36.0 - 45.0 fL RDWCV 15.6 (H) 11.4 - 13.8 % MPV 9.0 7.6 - 12.9 fL nRBC % Auto 0.0 % nRBC Abs Auto 0.000 0.000 - 0.000 x10(3)/mcL Differential, Automated Result Value Ref Range Neutrophils % 60.8 % Neutr Abs (ANC) 3.01 1.70 - 6.10 x10(3)/mcL Lymphocytes % 19.8 % Lymphocytes Abs 1.0 0.9 - 3.2 x10(3)/mcL Monocytes % 10.7 % Monocyte Abs 0.5 0.3 - 0.9 x10(3)/mcL Eosinophils % 8.1 % Eosinophils Abs 0.4 0.0 - 0.4 x10(3)/mcL Basophils % 0.4 % Basophils Abs 0.0 0.0 - 0.1 x10(3)/mcL Immature Gran % 0.20 % Veronika Gran Abs 0.01 0.00 - 0.04 x10(3)/mcL Infectious Disease with Microbiology Results Trends (Last 3 days) 71h Max Temp (??C) 37.4 (99.3) 04/29 2009 Heart Rate 72 04/28 2320 BP (!) 168/101 05/01 0005 Resp 20 05/01 0005 SpO2 (%) 99 04/30 1504 Most Recent Creatinine 2.66 05/01 0400 WBC 5.0 05/01 040 BUN 36 05/01 0400 Antimicrobials Medication Dose/Rate, Route, Frequency Last Action ciprofloxacin (CIPRO) tablet 500 mg 500 mg, Oral, BID Given: 05/01 619 metroNIDAZOLE (FLAGYL) tablet 500 mg 500 mg, Oral, BID Given: 04/30 2024 vancomycin- intermittent dosing per levels No Dose/Rate, NOT APPLICAB, Per Pharmacy Ordered A/P: Christy Ambrose??is a 57 y.o.??male??w/ renal transplant who p/w ruptured LUE AVF s/p exportation and repair, forearm fasciotomy, carpal tunnel release by Dr Sparks, left forearm wound managed was being managed with VAC. Patient underwent skin grafting for wound closure (04/26). Dressings remain intact on left thigh (Allevyn) and skin graft (LUE) appears healthy upon VAC takedown 05/02. ?? Plan: - LUE: Dressing changes to occur every other day for 1 week (Bacitracin and xeroform). Next dressing change to occur 05/04. After a week can go to a lip gloss thin layer of Aquaphor twice daily. - Left thigh: Allevyn dressing to remain in place and dry for 2wks post-op (until 05/10) - Continue abx per ID/primary:??vanc/flagyl/cipro - Ok for discharge to rehab from plastic surgery perspective - Appreciate rest of care by primary team Javier Nolan MD Pager: [phone] * Tristin Marrero MD - 05/03/2018 7:40 AM EDT Vascular Surgery Progress Note Patient ID Christy Ambrose is a 57 y.o. 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 Operations This Hospitalization 04/06: -Exploration of LUE AVF, repair of AVF, brachial artery patch angioplasty -Axillary venous phlebotomy -Forearm and hand fasciotomies 04/14: 1. Sharp excisional debridement of skin, subcutaneous tissue, and muscle 2. Partial closure of open fasciotomies 3. Wound vac negative pressure therapy dressing placement 04/19: Resection of prior L snuff box radiocephalic AVF, radial artery ligation 04/25: Vac change at the bed side. 04/26: Split thickness skin graft to the left forearm with vac overlying. Donor site is left upper lateral thigh. Subjective Pain well controlled this AM. Denies CP, SOB, N/V. No complaints overnight. Objective Temp: [36.2 ??C (97.2 ??F)-36.7 ??C (98.1 ??F)] Heart Rate: [54] Resp: [16-18] BP: (139-169)/(85-105) SpO2: [98 %-100 %] Heart Rate from SPO2: [54 bpm-81 bpm] Body mass index is 26.61 kg/m??. Intake/Output Summary (Last 24 hours) at 05/03/2018 0740 Last data filed at 05/03/2018 0600 Gross per 24 hour Intake 1186 ml Output 4050 ml Net -2864 ml Physical Exam General: alert, cooperative, NAD HEENT: normocephalic, atraumatic Heart: regular rate, and rhythm Pulmonary: non-labored breathing on room air Neuro: no focal deficits Extremities: LUE: Dressing in place over STSG. Able to wiggle fingers and move wrist, radial incision c/d/i left open to air. Left thigh donor site with overlying bandage, minimal saturation. Labs Last 3 wbc, hgb, hct plt Recent Labs 05/03/1830505/02/1831905/01/18 0400 WBC 5.0 4.8 5.0 HGB 8.2* 8.2* 8.2* HCT 25.1* 24.6* 25.6* PLATELET 160 168 192 Last 3 Lytes Recent Labs 05/03/1830505/02/1831905/01/18 0400 NA 135 135 134* K 4.2 4.3 3.9 CL 101 103 101 CO2 20* 19* 19* BUN 35* 38* 36* CREATININE 2.58* 2.73* 2.66* Last Ca, Mg, Phos Recent Labs 05/03/18305 CALCIUM 7.9* Last 3 Coags No results for input(s): PT, INR, PTT in the last 168 hours. Microbiology - Rare Corynebacterium species, sensitivities pending. New Studies None Assessment & Plan Christy Ambrose is a 57 y.o. male s/p brachial artery repair following ruptured AVF with subsequent cardiac arrest. Patient continues to make steady progress. L forearm wound now covered with STSG by Plastic Surgery with 100% take. Patient on antibiotic regimen per ID and will plan for 4 weeks OPAT. Appreicate plastic surgery involvement & recommendations. Disposition planning ongoing. Angelina Marrero Vascular Surgery, PGY3 Pager #[phone] * Tristin Marrero MD - 05/02/2018 12:35 PM EDT Vascular Surgery Progress Note Patient ID Christy Ambrose is a 57 y.o. 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 Operations This Hospitalization 04/06: -Exploration of LUE AVF, repair of AVF, brachial artery patch angioplasty -Axillary venous phlebotomy -Forearm and hand fasciotomies 04/14: 1. Sharp excisional debridement of skin, subcutaneous tissue, and muscle 2. Partial closure of open fasciotomies 3. Wound vac negative pressure therapy dressing placement 04/19: Resection of prior L snuff box radiocephalic AVF, radial artery ligation 04/25: Vac change at the bed side. 04/26: Split thickness skin graft to the left forearm with vac overlying. Donor site is left upper lateral thigh. Subjective Pain well controlled this AM. Denies CP, SOB, N/V. No complaints over night. VAC removed by plastics this AM Objective Temp: [36.5 ??C (97.7 ??F)-37.1 ??C (98.8 ??F)] Heart Rate: -- Resp: [15-17] BP: (139-156)/(90-97) SpO2: [98 %-100 %] Heart Rate from SPO2: [56 bpm-59 bpm] Body mass index is 26.61 kg/m??. Intake/Output Summary (Last 24 hours) at 05/02/2018 1235 Last data filed at 05/02/2018 1124 Gross per 24 hour Intake 2417 ml Output 5100 ml Net -2683 ml Physical Exam General: alert, cooperative, NAD HEENT: normocephalic, atraumatic Heart: regular rate, and rhythm Pulmonary: non-labored breathing on room air Neuro: no focal deficits Extremities: LUE: Dressing in place over STSG. Able to wiggle fingers and move wrist, radial incision c/d/i left open to air. Left thigh donor site with overlying bandage, minimal saturation. Labs Last 3 wbc, hgb, hct plt Recent Labs 05/02/18 0320 05/01/18 0400 04/30/18 0255 WBC 4.8 5.0 5.2 HGB 8.2* 8.2* 7.9* HCT 24.6* 25.6* 24.3* PLATELET 168 192 186 Last 3 Lytes Recent Labs 05/02/18 0320 05/01/18 0400 04/30/18 0255 NA 135 134* 135 K 4.3 3.9 4.5 CL 103 101 100 CO2 19* 19* 21* BUN 38* 36* 39* CREATININE 2.73* 2.66* 2.94* Last Ca, Mg, Phos Recent Labs 05/02/18 0320 CALCIUM 7.7* Last 3 Coags No results for input(s): PT, INR, PTT in the last 168 hours. Microbiology - Rare Corynebacterium species, sensitivities pending. New Studies None Assessment & Plan Christy Ambrose is a 57 y.o. male s/p brachial artery repair following ruptured AVF with subsequent cardiac arrest. Patient continues to make steady progress. L forearm wound now covered with STAG by Plastic Surgery with 100% take. Patient on antibiotic regimen per ID and will plan for 4 weeks OPAT. Appreicate plastic surgery involvement & recommendations. Angelina Marrero Vascular Surgery, PGY3 Pager #[phone] * Chasidy Monahan PA - 05/02/2018 9:16 AM EDT Images from the original note were not included. 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 He was taken to the OR with Vascular surgery for??exploration, repair of AVF with patch angioplasty and??L??forearm and hand fasciotomies.??Plastic surgery is consulted for management of the fasciotomy wounds. The patient underwent wound vac changes to the wound, the wound became clean with good granulation tissue and skin grafting was performed on 04/26. ?? S: - Wound VAC leaking yesterday and alarmed. Nursing staff reinforced VAC dressing - VAC removed on rounds - graft with 100% take - dressed with bacitracin/xeroform and covered with ABDs and Kerlix O: Temp: [36.5 ??C (97.7 ??F)-37.3 ??C (99.1 ??F)] Resp: [15-17] BP: (139-156)/(90-97) Intake/Output Summary (Last 24 hours) at 05/02/2018 0916 Last data filed at 05/02/2018 0700 Gross per 24 hour Intake 2567 ml Output 4500 ml Net -1933 ml Exam: General: NAD, Alert, oriented Resp: Nonlabored, symmetric chest movement LUE: VAC removed on rounds. Graft with 100% take. Re-dressed with bacitracin and xeroform and covered with ABD pads and Kerlix. Next dressing change to occur 05/04 Left thigh: Allevyn dressing in place with moderate strike through. No active leaking around dressing. Recent Results (from the past 24 hour(s)) Basic Metabolic Panel (non-fasting) Result Value Ref Range Glucose Lvl 94 65 - 199 mg/dL BUN 38 (H) 10 - 20 mg/dL Creatinine 2.73 (H) 0.80 - 1.50 mg/dL Sodium 135 135 - 145 mmol/L Potassium 4.3 3.5 - 5.0 mmol/L Chloride 103 98 - 107 mmol/L CO2 19 (L) 22 - 31 mmol/L Anion Gap 13 5 - 15 mmol/L Calcium 7.7 (L) 8.5 - 10.5 mg/dL eGFR 25 (L) >=60 mL/min/1.73 m?? eGFR 29 (L) >=60 mL/min/1.73 m?? Hemogram Result Value Ref Range WBC 4.8 4.0 - 9.5 x10(3)/mcL RBC 2.61 (L) 4.58 - 5.54 x10(6)/mcL Hemoglobin 8.2 (L) 13.7 - 16.5 gm/dL Hematocrit 24.6 (L) 40.5 - 48.5 % MCV 94.3 (H) 82.9 - 93.1 fL MCH 31.4 27.5 - 32.1 pg MCHC 33.3 32.0 - 35.7 gm/dL Platelets 168 145 - 357 x10(3)/mcL RDWSD 54.4 (H) 36.0 - 45.0 fL RDWCV 15.5 (H) 11.4 - 13.8 % MPV 8.7 7.6 - 12.9 fL nRBC % Auto 0.0 % nRBC Abs Auto 0.000 0.000 - 0.000 x10(3)/mcL Differential, Automated Result Value Ref Range Neutrophils % 60.2 % Neutr Abs (ANC) 2.89 1.70 - 6.10 x10(3)/mcL Lymphocytes % 20.8 % Lymphocytes Abs 1.0 0.9 - 3.2 x10(3)/mcL Monocytes % 9.2 % Monocyte Abs 0.4 0.3 - 0.9 x10(3)/mcL Eosinophils % 8.8 % Eosinophils Abs 0.4 0.0 - 0.4 x10(3)/mcL Basophils % 0.6 % Basophils Abs 0.0 0.0 - 0.1 x10(3)/mcL Immature Gran % 0.40 % Veronika Gran Abs 0.02 0.00 - 0.04 x10(3)/mcL Infectious Disease with Microbiology Results Trends (Last 3 days) 71h Max Temp (??C) 37.4 (99.3) 04/29 2009 Heart Rate 72 04/28 2320 BP (!) 168/101 05/01 0005 Resp 20 05/01 0005 SpO2 (%) 99 04/30 1504 Most Recent Creatinine 2.66 05/01 400 WBC 5.0 05/01 400 BUN 36 05/01 0400 Antimicrobials Medication Dose/Rate, Route, Frequency Last Action ciprofloxacin (CIPRO) tablet 500 mg 500 mg, Oral, BID Given: 05/01 619 metroNIDAZOLE (FLAGYL) tablet 500 mg 500 mg, Oral, BID Given: 04/30 2024 vancomycin- intermittent dosing per levels No Dose/Rate, NOT APPLICAB, Per Pharmacy Ordered A/P: Christy Ambrose??is a 57 y.o.??male??w/ renal transplant who p/w ruptured LUE AVF s/p exportation and repair, forearm fasciotomy, carpal tunnel release by Dr Sparks, left forearm wound managed was being managed with VAC. Patient underwent skin grafting for wound closure (04/26). Dressings remain intact on left thigh (Allevyn) and skin graft (LUE) appears healthy on exam this AM after VAC takedow n (05/02). ?? Plan: - LUE: Dressing changes to occur every other day for 1 week (Bacitracin and xeroform). Next dressing change to occur 05/04. After a week can go to a lip gloss thin layer of Aquaphor twice daily. - Left thigh: Allevyn dressing to remain in place and dry for 2wks post-op (until 05/10) - no need to hold SQH - Continue abx per ID/primary:??vanc/flagyl/cipro - Pt still in house; cancel appt today in Plastics Clinic - Appreciate rest of care by primary team PANCHITO Rios Plastic Surgery Team Pager: [phone] * Natalya Jacobsen MD - 05/01/2018 9:15 AM EDT Vascular Surgery Progress Note Patient ID Christy Ambrose is a 57 y.o. 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 Operations This Hospitalization 04/06: -Exploration of LUE AVF, repair of AVF, brachial artery patch angioplasty -Axillary venous phlebotomy -Forearm and hand fasciotomies 04/14: 1. Sharp excisional debridement of skin, subcutaneous tissue, and muscle 2. Partial closure of open fasciotomies 3. Wound vac negative pressure therapy dressing placement 04/19: Resection of prior L snuff box radiocephalic AVF, radial artery ligation 04/25: Vac change at the bed side. 04/26: Split thickness skin graft to the left forearm with vac overlying. Donor site is left upper lateral thigh. Subjective Pain well controlled this AM. Denies CP, SOB, N/V. No complaints over night. Objective Temp: [36.4 ??C (97.5 ??F)-37 ??C (98.6 ??F)] Heart Rate: -- Resp: [16-20] BP: (137-168)/(84-111) SpO2: [94 %-99 %] Heart Rate from SPO2: [52 bpm-81 bpm] Body mass index is 26.61 kg/m??. Intake/Output Summary (Last 24 hours) at 05/01/2018 0915 Last data filed at 05/01/2018 0841 Gross per 24 hour Intake 1835 ml Output 3075 ml Net -1240 ml Physical Exam General: alert, cooperative, NAD HEENT: normocephalic, atraumatic Heart: regular rate, and rhythm Pulmonary: non-labored breathing on room air Neuro: no focal deficits Extremities: LUE: wound vac c/d/i, good seal. Ulnar and palmar signal. Able to wiggle fingers and move wrist, 2+ edema of hand, radial incision c/d/i left open to air, minimally erythematous or edematous with no drainage. Left thigh donor site with overlying bandage, minimal saturation. No significant change from yesterday's exam Labs Last 3 wbc, hgb, hct plt Recent Labs 05/01/18 0400 04/30/18 0255 04/29/18 0540 WBC 5.0 5.2 5.1 HGB 8.2* 7.9* 7.7* HCT 25.6* 24.3* 24.2* PLATELET 192 186 216 Last 3 Lytes Recent Labs 05/01/18 0400 04/30/18 0255 04/29/18 0540 NA 134* 135 136 K 3.9 4.5 4.9 CL 101 100 104 CO2 19* 21* 21* BUN 36* 39* 41* CREATININE 2.66* 2.94* 2.51* Last Ca, Mg, Phos Recent Labs 05/01/18 0400 CALCIUM 8.0* Last 3 Coags No results for input(s): PT, INR, PTT in the last 168 hours. Microbiology - Rare Corynebacterium species, sensitivities pending. New Studies None Assessment & Plan Christy Ginna Ambrose is a 57 y.o. male s/p brachial artery repair following ruptured AVF with subsequent cardiac arrest. Patient continues to make steady progress. LUE with large wound currently being managed with negative pressure wound VAC therapy. Granulation tissue noted to be forming well. Now s/p ligation of radial and resection of his distal forearm AVF and a split thickness skin graft on 04/26. ID: Current regimen to the following: - Vancomycin, to be continued at discharge on OPAT - had PICC placed yesterday - Metronidazole 500mg BID - Ciprofloxacin 500mg BID - Continue to follow cultures. - 4 weeks of treatment from 04/26 Plastics: - 5-7 days: remove bolster. Then dressing - every other day adaptic and gauze (Wednesday) - 2 weeks: remove donor site dressing, may wash over all areas. Then dressing - Skin graft: Aquaphor or Adaptic and cover until healed. Donor site: Aquapohr and telfa until healed. - when no longer using dressings, apply lotion with aloe twice daily. - 3-6 month: f/u with attending - No shower until 2 weeks post-op. Transplant: continue current immunosuppression regimen. BP control improving with addition of PRN labetalol, will consider increasing standing medications in conjunction with transplant medicine. Potassium returned to normal limits. Will f/u with labs tomorrow. DISPO: No allowed to return home per mother/land-lord. Will be searching for housing upon dischargeMonday. Choices for Care application has been submitted. No change from plan of prior, awaiting plastics dressing removal and discharge plan. Natalya Jacobsen MD General Surgery PGY-1 [id number] * Aditi Mccollum MD - 05/01/2018 6:59 AM EDT Images from the original note were not included. PLASTIC SURGERY PROGRESS NOTE S: No events overnight. Vac with good seal. O: Temp: [36.4 ??C (97.5 ??F)-37 ??C (98.6 ??F)] Resp: [16-20] BP: (137-168)/(84-108) Intake/Output Summary (Last 24 hours) at 05/01/2018 0659 Last data filed at 05/01/2018 0622 Gross per 24 hour Intake 1955 ml Output 2875 ml Net -920 ml Exam: General: NAD, Alert, oriented Resp: Nonlabored, symmetric chest movement LUE: vac with good seal, allevyn in place Recent Results (from the past 24 hour(s)) Vancomycin, trough Result Value Ref Range Vanc Trough 15.3 mg/L Basic Metabolic Panel (non-fasting) Result Value Ref Range Glucose Lvl 101 65 - 199 mg/dL BUN 36 (H) 10 - 20 mg/dL Creatinine 2.66 (H) 0.80 - 1.50 mg/dL Sodium 134 (L) 135 - 145 mmol/L Potassium 3.9 3.5 - 5.0 mmol/L Chloride 101 98 - 107 mmol/L CO2 19 (L) 22 - 31 mmol/L Anion Gap 14 5 - 15 mmol/L Calcium 8.0 (L) 8.5 - 10.5 mg/dL eGFR 26 (L) >=60 mL/min/1.73 m?? eGFR 30 (L) >=60 mL/min/1.73 m?? Hemogram Result Value Ref Range WBC 5.0 4.0 - 9.5 x10(3)/mcL RBC 2.71 (L) 4.58 - 5.54 x10(6)/mcL Hemoglobin 8.2 (L) 13.7 - 16.5 gm/dL Hematocrit 25.6 (L) 40.5 - 48.5 % MCV 94.5 (H) 82.9 - 93.1 fL MCH 30.3 27.5 - 32.1 pg MCHC 32.0 32.0 - 35.7 gm/dL Platelets 192 145 - 357 x10(3)/mcL RDWSD 53.5 (H) 36.0 - 45.0 fL RDWCV 15.5 (H) 11.4 - 13.8 % MPV 8.9 7.6 - 12.9 fL nRBC % Auto 0.0 % nRBC Abs Auto 0.000 0.000 - 0.000 x10(3)/mcL Differential, Automated Result Value Ref Range Neutrophils % 60.0 % Neutr Abs (ANC) 2.98 1.70 - 6.10 x10(3)/mcL Lymphocytes % 21.2 % Lymphocytes Abs 1.0 0.9 - 3.2 x10(3)/mcL Monocytes % 9.7 % Monocyte Abs 0.5 0.3 - 0.9 x10(3)/mcL Eosinophils % 8.1 % Eosinophils Abs 0.4 0.0 - 0.4 x10(3)/mcL Basophils % 0.8 % Basophils Abs 0.0 0.0 - 0.1 x10(3)/mcL Immature Gran % 0.20 % Veronika Gran Abs 0.01 0.00 - 0.04 x10(3)/mcL Infectious Disease with Microbiology Results Trends (Last 3 days) 71h Max Temp (??C) 37.4 (99.3) 04/29 2009 Heart Rate 72 04/28 2320 BP (!) 168/101 05/01 0005 Resp 20 05/01 0005 SpO2 (%) 99 04/30 1504 Most Recent Creatinine 2.66 05/01 400 WBC 5.0 05/01 400 BUN 36 05/01 400 Antimicrobials Medication Dose/Rate, Route, Frequency Last Action ciprofloxacin (CIPRO) tablet 500 mg 500 mg, Oral, BID Given: 05/01 619 metroNIDAZOLE (FLAGYL) tablet 500 mg 500 mg, Oral, BID Given: 04/30 2024 vancomycin- intermittent dosing per levels No Dose/Rate, NOT APPLICAB, Per Pharmacy Ordered A/P: Christy Ambrose??is a 57 y.o.??male??w/ renal transplant who p/w ruptured LUE AVF s/p exportation and repair, forearm fasciotomy, carpal tunnel release by Dr Sparks, left forearm wound managed was being managed with VAC. Patient underwent skin grafting for wound closure (04/26). Dressings remain intact and patient will have the VAC removed Wednesday (05/02). ?? Plan: - VAC takedown to occur Wednesday 05/02. Premedication ordered for tomorrow morning. - Left thigh: Allevyn dressing to remain in place and dry for 2wks post-op (until 05/10) - no need to hold SQH - Continue abx per ID/primary:??vanc/flagyl/cipro - From plastic surgery standpoint ok for d/c and can return to clinic Wednesday to have VAC removed. Appt has been scheduled. Should pt remain in house, plastics will take down VAC Wednesday. - Appreciate rest of care by primary team Aditi Mccollum MD Plastic Surgery Resident P# [id number] * Natalya Jacobsen MD - 04/30/2018 9:23 AM EDT Vascular Surgery Progress Note Patient ID Christy Ambrose is a 57 y.o. 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 Operations This Hospitalization 04/06: -Exploration of LUE AVF, repair of AVF, brachial artery patch angioplasty -Axillary venous phlebotomy -Forearm and hand fasciotomies 04/14: 1. Sharp excisional debridement of skin, subcutaneous tissue, and muscle 2. Partial closure of open fasciotomies 3. Wound vac negative pressure therapy dressing placement 04/19: Resection of prior L snuff box radiocephalic AVF, radial artery ligation 04/25: Vac change at the bed side. 04/26: Split thickness skin graft to the left forearm with vac overlying. Donor site is left upper lateral thigh. Subjective Pain well controlled this AM. Denies CP, SOB, N/V. No complaints over night. Objective Temp: [36.5 ??C (97.7 ??F)-37.4 ??C (99.3 ??F)] Heart Rate: -- Resp: [16-20] BP: (120-166)/(90-100) SpO2: [96 %-99 %] Heart Rate from SPO2: [55 bpm-73 bpm] Body mass index is 26.61 kg/m??. Intake/Output Summary (Last 24 hours) at 04/30/2018923 Last data filed at 04/30/2018 0903 Gross per 24 hour Intake 1900 ml Output 1750 ml Net 150 ml Physical Exam General: alert, cooperative, NAD HEENT: normocephalic, atraumatic Heart: regular rate, and rhythm Pulmonary: non-labored breathing on room air Neuro: no focal deficits Extremities: LUE: wound vac c/d/i, good seal. Ulnar and palmar signal. Able to wiggle fingers and move wrist, 2+ edema of hand, radial incision c/d/i left open to air, minimally erythematous or edematous with no drainage. Left thigh donor site with overlying bandage, minimal saturation. No significant change from yesterday's exam Labs Last 3 wbc, hgb, hct plt Recent Labs 04/30/18 0255 04/29/18 0540 04/28/18 0440 WBC 5.2 5.1 6.2 HGB 7.9* 7.7* 7.6* HCT 24.3* 24.2* 24.3* PLATELET 186 216 249 Last 3 Lytes Recent Labs 04/30/18 0255 04/29/18 0540 04/28/18 0440 NA 135 136 133* K 4.5 4.9 4.9 CL 100 104 101 CO2 21* 21* 20* BUN 39* 41* 44* CREATININE 2.94* 2.51* 2.80* Last Ca, Mg, Phos Recent Labs 04/30/18 0255 CALCIUM 8.1* Last 3 Coags No results for input(s): PT, INR, PTT in the last 168 hours. Microbiology - Rare Corynebacterium species, sensitivities pending. New Studies None Assessment & Plan Christy Ginna Ambrose is a 57 y.o. male s/p brachial artery repair following ruptured AVF with subsequent cardiac arrest. Patient continues to make steady progress. LUE with large wound currently being managed with negative pressure wound VAC therapy. Granulation tissue noted to be forming well. Now s/p ligation of radial and resection of his distal forearm AVF and a split thickness skin graft on 04/26. ID: Current regimen to the following: - Vancomycin, to be continued at discharge on OPAT - had PICC placed yesterday - Metronidazole 500mg BID - Ciprofloxacin 500mg BID - Continue to follow cultures. - 4 weeks of treatment from 04/26 Plastics: - 5-7 days: remove bolster. Then dressing - every other day adaptic and gauze (Wednesday) - 2 weeks: remove donor site dressing, may wash over all areas. Then dressing - Skin graft: Aquaphor or Adaptic and cover until healed. Donor site: Aquapohr and telfa until healed. - when no longer using dressings, apply lotion with aloe twice daily. - 3-6 month: f/u with attending - No shower until 2 weeks post-op. Transplant: continue current immunosuppression regimen. BP control improving with addition of PRN labetalol, will consider increasing standing medications in conjunction with transplant medicine. Potassium returned to normal limits. Will f/u with labs tomorrow. DISPO: No allowed to return home per mother/land-lord. Will be searching for housing upon dischargeMonday. Choices for Care application has been submitted. Natalya Jacobsen MD General Surgery PGY-1 [id number] * Aditi Mccollum MD - 04/30/2018 6:48 AM EDT Images from the original note were not included. PLASTIC SURGERY PROGRESS NOTE S: No events overnight. CM working on dispo planning. Wound vac maintaining good seal. O: Temp: [36.4 ??C (97.5 ??F)-37.4 ??C (99.3 ??F)] Resp: [16-20] BP: (120-166)/(88-104) Intake/Output Summary (Last 24 hours) at 04/30/2018 0648 Last data filed at 04/30/2018 0630 Gross per 24 hour Intake 1780 ml Output 2050 ml Net -270 ml Exam: General: NAD, Alert, oriented Resp: Nonlabored, symmetric chest movement, CTAB CV: normal rate regular rhythm Incisions: Allevyn with some strikethrough, but intact. Wound vac with good seal. Recent Results (from the past 24 hour(s)) Vancomycin, trough Result Value Ref Range Vanc Trough 19.5 mg/L Vancomycin, trough Result Value Ref Range Vanc Trough 15.9 mg/L Basic Metabolic Panel (non-fasting) Result Value Ref Range Glucose Lvl 96 65 - 199 mg/dL BUN 39 (H) 10 - 20 mg/dL Creatinine 2.94 (H) 0.80 - 1.50 mg/dL Sodium 135 135 - 145 mmol/L Potassium 4.5 3.5 - 5.0 mmol/L Chloride 100 98 - 107 mmol/L CO2 21 (L) 22 - 31 mmol/L Anion Gap 14 5 - 15 mmol/L Calcium 8.1 (L) 8.5 - 10.5 mg/dL eGFR 23 (L) >=60 mL/min/1.73 m?? eGFR 26 (L) >=60 mL/min/1.73 m?? Hemogram Result Value Ref Range WBC 5.2 4.0 - 9.5 x10(3)/mcL RBC 2.53 (L) 4.58 - 5.54 x10(6)/mcL Hemoglobin 7.9 (L) 13.7 - 16.5 gm/dL Hematocrit 24.3 (L) 40.5 - 48.5 % MCV 96.0 (H) 82.9 - 93.1 fL MCH 31.2 27.5 - 32.1 pg MCHC 32.5 32.0 - 35.7 gm/dL Platelets 186 145 - 357 x10(3)/mcL RDWSD 54.7 (H) 36.0 - 45.0 fL RDWCV 15.6 (H) 11.4 - 13.8 % MPV 8.7 7.6 - 12.9 fL nRBC % Auto 0.0 % nRBC Abs Auto 0.000 0.000 - 0.000 x10(3)/mcL Differential, Automated Result Value Ref Range Neutrophils % 60.3 % Neutr Abs (ANC) 3.15 1.70 - 6.10 x10(3)/mcL Lymphocytes % 22.8 % Lymphocytes Abs 1.2 0.9 - 3.2 x10(3)/mcL Monocytes % 10.2 % Monocyte Abs 0.5 0.3 - 0.9 x10(3)/mcL Eosinophils % 5.7 % Eosinophils Abs 0.3 0.0 - 0.4 x10(3)/mcL Basophils % 0.6 % Basophils Abs 0.0 0.0 - 0.1 x10(3)/mcL Immature Gran % 0.40 % Veronika Gran Abs 0.02 0.00 - 0.04 x10(3)/mcL Infectious Disease with Microbiology Results Trends (Last 3 days) 71h Max Weight (kg) 84.3 kg (185 lb 13.6 oz) 04/27 927 Temp (??C) 37.4 (99.3) 04/29 2009 Heart Rate 72 04/28 2320 BP (!) 171/92 04/27 2017 Resp 20 04/29 2009 SpO2 (%) 99 04/28 1500 Most Recent Creatinine 2.94 04/30 255 WBC 5.2 04/30 255 BUN 39 04/30 025 Antimicrobials Medication Dose/Rate, Route, Frequency Last Action ciprofloxacin (CIPRO) tablet 500 mg 500 mg, Oral, BID Given: 04/30 625 metroNIDAZOLE (FLAGYL) tablet 500 mg 500 mg, Oral, BID Given: 04/29 2019 Vancomycin Level - MAR Order Reminder No Dose/Rate, NOT APPLICAB, Once Ordered Vancomycin Level - MAR Order Reminder No Dose/Rate, NOT APPLICAB, Per Pharmacy Ordered vancomycin- intermittent dosing per levels No Dose/Rate, NOT APPLICAB, Per Pharmacy Ordered Assessment: Chrsity Ambrose is a 57 y.o. male w/ renal transplant who p/w ruptured LUE AVF s/p exportation and repair, forearm fasciotomy, carpal tunnel release by Dr Sparks, left forearm wound managed was being managed with VAC. Patient underwent skin grafting for wound closure (04/26). Dressings remain intact and patient will have the VAC removed Wednesday (05/02). ?? Plan: - VAC takedown to occur Wednesday 05/02 - Left thigh: Allevyn dressing to remain in place and dry for 2wks post-op (until 05/10) - no need to hold SQH - Continue abx per ID/primary: vanc/flagyl/cipro - From plastic surgery standpoint ok for d/c and can return to clinic Wednesday to have VAC removed. Appt has been scheduled. Should pt remain in house, plastics will take down VAC Wednesday. - Appreciate rest of care by primary team Aditi Mccollum MD Plastic Surgery Resident P# [phone] * Natalya Jacobsen MD - 04/29/2018 2:00 PM EDT Vascular Surgery Progress Note Patient ID Christy Ambrose is a 57 y.o. 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 Operations This Hospitalization 04/06: -Exploration of LUE AVF, repair of AVF, brachial artery patch angioplasty -Axillary venous phlebotomy -Forearm and hand fasciotomies 04/14: 1. Sharp excisional debridement of skin, subcutaneous tissue, and muscle 2. Partial closure of open fasciotomies 3. Wound vac negative pressure therapy dressing placement 04/19: Resection of prior L snuff box radiocephalic AVF, radial artery ligation 04/25: Vac change at the bed side. 04/26: Split thickness skin graft to the left forearm with vac overlying. Donor site is left upper lateral thigh. Subjective Pain well controlled this AM. Denies CP, SOB, N/V. No complaints over night. Objective Temp: [36.4 ??C (97.5 ??F)-37.3 ??C (99.1 ??F)] Heart Rate: [63-72] Resp: [16-18] BP: (135-166)/(88-104) SpO2: [97 %-99 %] Heart Rate from SPO2: [51 bpm-66 bpm] Body mass index is 26.61 kg/m??. Intake/Output Summary (Last 24 hours) at 04/29/2018 1401 Last data filed at 04/29/2018 1324 Gross per 24 hour Intake 1420 ml Output 4760 ml Net -3340 ml Physical Exam General: alert, cooperative, NAD HEENT: normocephalic, atraumatic Heart: regular rate, and rhythm Pulmonary: non-labored breathing on room air Neuro: no focal deficits Extremities: LUE: wound vac c/d/i, good seal. Ulnar and palmar signal. Able to wiggle fingers and move wrist, 2+ edema of hand, radial incision c/d/i left open to air, minimally erythematous or edematous with no drainage. Left thigh donor site with overlying bandage, minimal saturation. No significant change from yesterday's exam Labs Last 3 wbc, hgb, hct plt Recent Labs 04/29/18 0540 04/28/18 0440 04/27/18 0443 WBC 5.1 6.2 5.9 HGB 7.7* 7.6* 8.8* HCT 24.2* 24.3* 27.0* PLATELET 216 249 302 Last 3 Lytes Recent Labs 04/29/18 0540 04/28/18 0440 04/27/18 0443 NA 136 133* 132* K 4.9 4.9 5.6* CL 104 101 101 CO2 21* 20* 18* BUN 41* 44* 41* CREATININE 2.51* 2.80* 2.81* Last Ca, Mg, Phos Recent Labs 04/29/18 0540 CALCIUM 8.0* Last 3 Coags No results for input(s): PT, INR, PTT in the last 168 hours. Microbiology - Rare Corynebacterium species, sensitivities pending. New Studies None Assessment & Plan Christy Ginna Delunaon is a 57 y.o. male s/p brachial artery repair following ruptured AVF with subsequent cardiac arrest. Patient continues to make steady progress. LUE with large wound currently being managed with negative pressure wound VAC therapy. Granulation tissue noted to be forming well. Now s/p ligation of radial and resection of his distal forearm AVF and a split thickness skin graft on 04/26. ID: Current regimen to the following: - Vancomycin, to be continued at discharge on OPAT - had PICC placed yesterday - Metronidazole 500mg BID - Ciprofloxacin 500mg BID - Continue to follow cultures. - 4 weeks of treatment from 04/26 Plastics: - 5-7 days: remove bolster. Then dressing - every other day adaptic and gauze (Wednesday) - 2 weeks: remove donor site dressing, may wash over all areas. Then dressing - Skin graft: Aquaphor or Adaptic and cover until healed. Donor site: Aquapohr and telfa until healed. - when no longer using dressings, apply lotion with aloe twice daily. - 3-6 month: f/u with attending - No shower until 2 weeks post-op. Transplant: continue current immunosuppression regimen. BP control improving with addition of PRN labetalol, will consider increasing standing medications in conjunction with transplant medicine. Creatinine is downtredning. Potassium returned to normal limits. Will f/u with labs tomorrow. DISPO: No allowed to return home per mother/land-lord. Will be searching for housing upon dischargeMonday. Choices for Care application has been submitted. Natalya Jacobsen MD General Surgery PGY-1 [id number] * Natalya Wan MSW - 04/29/2018 11:21 AM EDT [employer] WORKER spoke with patients mother and [facility] [employer] [employer]IL [employer] WORK[employer] who are following up today by completingChoices for Care application. 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 * Hay Sparks MD - 04/29/2018 6:48 AM EDT Plastic Surgery Service Progress Note ID: Christy Ambrose is a 57 y.o. 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 He was taken to the OR with Vascular surgery for exploration, repair of AVF with patch angioplasty and L forearm and hand fasciotomies. Plastic surgery is consulted for management of the fasciotomy wounds. The patient underwent wound vac changes to the wound, the wound became clean with good granulation tissue and skin grafting was performed on 04/26. S/IE: - JACQUELIN o/n Vitals: Last value Range last 8hrs Temperature Temp: 37 ??C (98.6 ??F) Temp: [36.9 ??C (98.4 ??F)-37 ??C (98.6 ??F)] Heart Rate Heart Rate: 63 Heart Rate: [63-72] Blood Pressure BP: (!) 151/102 BP: (135-156)/(95-102) Respiratory Rate Resp: 18 Resp: [18] SpO2 SpO2: 97 % SpO2: [97 %] Physical Exam: General: alert, in no acute distress LUE: wound vac in place holding suction over skin graft Left thigh: Allevyn dressing in place over skin graft donor site; minimal strike through Labs: Recent Labs 04/29/18 0540 04/28/18 0440 04/27/18 0443 HGB 7.7* 7.6* 8.8* PLATELET 216 249 302 Tissue cultures (Left arm snuffbox): 04/19/18 - Corynebacterium Assessment: Christy Ambrose is a 57 y.o. 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 Patient underwent skin grafting for wound closure yesterday (04/26), dressings remain intact and patient will have the VAC removed Wednesday (05/02). Plan: - VAC takedown to occur Wednesday 05/02 - Left thigh: Allevyn dressing to remain in place and dry for 2wks post-op (until 05/10) - no need to hold SQH - Continue abx per ID/primary: vanc/flagyl/cipro - From plastic surgery standpoint ok for d/c and can return to clinic Wednesday to have VAC removed. Appt has been scheduled. Should pt remain in house, plastics will take down VAC Wednesday. - Appreciate rest of care by primary team Future Appointments Date Time Provider Department Center 05/02/2018 10:30 AM NURSE, PLASTIC SURGERY [facility] 05/02/2018 12:30 PM Natalya Ojeda MD [facility] 08/18/2018 10:30 AM Chanel Smith MD [facility] Camilo Bauman MD Plastic surgery team pager: [phone] 04/29/2018 6:48 AM * Kumar Schilling - 04/28/2018 2:37 PM EDT Narrative: Visited to introduce and assess acceptance of Physician Coder services. Pt was awake, alert, oriented and in bed and watching TV. Assessment:Patient coping positively with stresses of illness/hospitalization at this time. Pt saysthat he is hoping to get better and shared that he has been here for few weeks. Pt said that he is living with mother. Pt is taking one day at time and hoping to go back to home. Outcome: Provided emotional, spiritua support and encouraging presence. Physician Coder services accepted.Conversation to build trusting relationship.Provided pastoral presence. Follow up:yes Time: 20 Mins * Natalya Jacobsen MD - 04/28/2018 2:12 PM EDT Vascular Surgery Progress Note Patient ID Christy Ambrose is a 57 y.o. 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 Operations This Hospitalization 04/06: -Exploration of LUE AVF, repair of AVF, brachial artery patch angioplasty -Axillary venous phlebotomy -Forearm and hand fasciotomies 04/14: 1. Sharp excisional debridement of skin, subcutaneous tissue, and muscle 2. Partial closure of open fasciotomies 3. Wound vac negative pressure therapy dressing placement 04/19: Resection of prior L snuff box radiocephalic AVF, radial artery ligation 04/25: Vac change at the bed side. 04/26: Split thickness skin graft to the left forearm with vac overlying. Donor site is left upper lateral thigh. Subjective Pain well controlled this AM. Denies CP, SOB, N/V. No complaints over night. Objective Temp: [36.5 ??C (97.7 ??F)-37 ??C (98.6 ??F)] Heart Rate: -- Resp: [18-19] BP: (132-171)/(80-99) SpO2: [94 %-99 %] Heart Rate from SPO2: [48 bpm-65 bpm] Body mass index is 26.61 kg/m??. Intake/Output Summary (Last 24 hours) at 04/28/2018 1425 Last data filed at 04/28/2018 1327 Gross per 24 hour Intake 1310 ml Output 3795 ml Net -2485 ml Physical Exam General: alert, cooperative, NAD HEENT: normocephalic, atraumatic Heart: regular rate, and rhythm Pulmonary: non-labored breathing on room air Neuro: no focal deficits Extremities: LUE: wound vac c/d/i, good seal. Ulnar and palmar signal. Able to wiggle fingers and move wrist, 2+ edema of hand, radial incision c/d/i left open to air, minimally erythematous or edematous with no drainage. Left thigh donor site with overlying bandage, minimal saturation. No change from yesterday's exam Labs Last 3 wbc, hgb, hct plt Recent Labs 04/28/180 04/27/18 04404/26/18 1509 WBC 6.2 5.9 4.8 HGB 7.6* 8.8* 8.8* HCT 24.3* 27.0* 27.5* PLATELET 249 302 273 Last 3 Lytes Recent Labs 04/28/18 0440 04/27/18 0443 04/26/18 0439 NA 133* 132* 138 K 4.9 5.6* 5.2* CL 101 101 106 CO2 20* 18* 19* BUN 44* 41* 37* CREATININE 2.80* 2.81* 2.80* Last Ca, Mg, Phos Recent Labs 04/28/18 0440 CALCIUM 8.1* Last 3 Coags No results for input(s): PT, INR, PTT in the last 168 hours. Microbiology - Rare Corynebacterium species, sensitivities pending. New Studies None Assessment & Plan Christy Ambrose is a 57 y.o. male s/p brachial artery repair following ruptured AVF with subsequent cardiac arrest. Patient continues to make steady progress. LUE with large wound currently being managed with negative pressure wound VAC therapy. Granulation tissue noted to be forming well. Now s/p ligation of radial and resection of his distal forearm AVF and a split thickness skin graft on 04/26. ID: Current regimen to the following: - Vancomycin, to be continued at discharge on OPAT - had PICC placed yesterday - Metronidazole 500mg BID - Ciprofloxacin 500mg BID - Continue to follow cultures. - 4 weeks of treatment from 04/26 Plastics: - 5-7 days: remove bolster. Then dressing - every other day adaptic and gauze - 2 weeks: remove donor site dressing, may wash over all areas. Then dressing - Skin graft: Aquaphor or Adaptic and cover until healed. Donor site: Aquapohr and telfa until healed. - when no longer using dressings, apply lotion with aloe twice daily. - 3-6 month: f/u with attending - No shower until 2 weeks post-op. Transplant: continue current immunosuppression regimen. BP control improving with addition of PRN labetalol, will consider increasing standing medications in conjunction with transplant medicine. Creatinine is stable. Potassium returned to normal limits. Will f/u with labs tomorrow. DISPO: No allowed to return home per mother/land-lord. Will be searching for housing upon dischargeMonday. Natalya Jacobsen MD General Surgery PGY-1 [id number] * Hay Sparks MD - 04/28/2018 8:12 AM EDT Plastic Surgery Service Progress Note ID: Christy Ambrose is a 57 y.o. 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 He was taken to the OR with Vascular surgery for exploration, repair of AVF with patch angioplasty and L forearm and hand fasciotomies. Plastic surgery is consulted for management of the fasciotomy wounds. The patient underwent wound vac changes to the wound, the wound became clean with good granulation tissue and skin grafting was performed on 04/26. S/IE: - PICC placement yesterday - pt reported chest pain and stat EKG was ordered this AM - sinus williams otherwise unremarkable - Otherwise uneventful night Vitals: Last value Range last 8hrs Temperature Temp: 37 ??C (98.6 ??F) Temp: [36.5 ??C (97.7 ??F)-37 ??C (98.6 ??F)] Heart Rate Heart Rate: 63 Heart Rate: -- Blood Pressure BP: (!) 154/94 BP: (151-154)/(89-94) Respiratory Rate Resp: 18 Resp: [18-19] SpO2 SpO2: 99 % SpO2: [97 %-99 %] Physical Exam: General: alert, in no acute distress LUE: wound vac in place holding suction over skin graft Left thigh: Allevyn dressing in place over skin graft donor site; minimal strike through Labs: Recent Labs 04/28/18 0440 04/27/18 0443 04/26/18 1509 HGB 7.6* 8.8* 8.8* PLATELET 249 302 273 Tissue cultures (Left arm snuffbox): 04/19/18 - Corynebacterium Assessment: Christy Ambrose is a 57 y.o. 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 Patient underwent skin grafting for wound closure yesterday (04/26), dressings remain intact and patient will have the VAC removed Wednesday (05/02). Plan: - VAC takedown to occur Wednesday 05/02 - Left thigh: Allevyn dressing to remain in place and dry for 2wks post-op (until 05/10) - no need to hold SQH - Continue abx per ID/primary: vanc/flagyl/cipro - From plastic surgery standpoint ok for d/c and can return to clinic Wednesday to have VAC removed. Appt has been scheduled. Should pt remain in house, plastics will take down VAC Wednesday. - Appreciate rest of care by primary team Future Appointments Date Time Provider Department Center 05/02/2018 10:30 AM NURSE, PLASTIC SURGERY [facility] 05/02/2018 12:30 PM Natalya Ojeda MD [facility] 08/18/2018 10:30 AM Chanel Smith MD [facility] PANCHITO Rios Plastic surgery team pager: [phone] 04/28/2018 8:12 AM Attending: Plan discussed and agree as documented. Hay Sparks MD Plastic Surgery * Danielle Peoples DO - 04/27/2018 3:42 PM EDT Infectious Disease Progress Note Subjective: Feels well. Flap placed yesterday. No headache, fevers or chills. Most Recent Vitals: 04/27/18 1458 BP: (!) 158/94 Pulse: Resp: 18 Temp: 36.6 ??C (97.9 ??F) SpO2: 94% Gen: alert, no acute distress CVS: S1S2 RRR Lungs: clear Ext: wound vac in place LUE. Edema of RUE. LLE with bandage in place Labs: reviewed. Wbc 5.9. Creatinine of 2.8 Micro: reviewed. 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 Given the limitations of culture, will treat with empiric regimen for 4 weeks (vancomycin IV and oral ciprofloxacin and metronidazole) and close follow up. ?? 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 Start date 04/26. Weekly cbc, cmp on therapy -Also discharge on oral metronidazole 500 mg bid and ciprofloxacin 500 mg po bid -Please check EKG today to monitor qct while on levofloxacin therapy -Follow up with ID on discharge ?? This patient was seen and discussed with ID attending Dr. Medina Recommendations discussed with primary treating team. ID will sign off. Please call with questions Danielle Peoples, DO Infectious Disease Fellow Pager [phone] Associated attestation - Kurt Medina MD - 04/28/2018 8:29 AM EDT Attending Addendum: I have seen and examined the patient, reviewed the data and agree with the note by Dr. Peoples. No way to know if this was infected or not, but from verbal report of operative field, sounds like there was some necrosis and concern for infection. There is no pathology or cultures done at that time. Therefore, we will treat broadly for infection for 4 weeks and then consider whether or not we will give chronic suppressive antibiotics or not. This could theoretically be done with Keflex, but we really have no microbiologic data to guide us. It is not clear if the corynebacterium was truly a pathogen or not. Gram-negative rods apparently were very scant and not clearly defined. They never grew. * Natalya Jacobsen MD - 04/27/2018 9:57 AM EDT Vascular Surgery Progress Note Patient ID Christy Ambrose is a 57 y.o. 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 Operations This Hospitalization 9/26: -Exploration of LUE AVF, repair of AVF, brachial artery patch angioplasty -Axillary venous phlebotomy -Forearm and hand fasciotomies 04/14: 1. Sharp excisional debridement of skin, subcutaneous tissue, and muscle 2. Partial closure of open fasciotomies 3. Wound vac negative pressure therapy dressing placement 04/19: Resection of prior L snuff box radiocephalic AVF, radial artery ligation 04/25: Vac change at the bed side. 04/26: Split thickness skin graft to the left forearm with vac overlying. Donor site is left upper lateral thigh. Subjective Pain well controlled this AM. Denies CP, SOB, N/V. No complaints over night. Objective Temp: [36.2 ??C (97.2 ??F)-36.8 ??C (98.2 ??F)] Heart Rate: [63-65] Resp: [11-18] BP: (128-149)/(82-92) SpO2: [93 %-99 %] Heart Rate from SPO2: [54 bpm-72 bpm] Body mass index is 26.61 kg/m??. Intake/Output Summary (Last 24 hours) at 04/27/2018 1008 Last data filed at 04/27/2018 0718 Gross per 24 hour Intake 2010 ml Output 1350 ml Net 660 ml Physical Exam General: alert, cooperative, NAD HEENT: normocephalic, atraumatic Heart: regular rate, and rhythm Pulmonary: non-labored breathing on room air Neuro: no focal deficits Extremities: LUE: wound vac c/d/i, good seal. Ulnar and palmar signal. Able to wiggle fingers and move wrist, 2+ edema of hand, radial incision c/d/i left open to air, minimally erythematous or edematous with no drainage. Left thigh donor site with overlying bandage, minimal saturation. Labs Last 3 wbc, hgb, hct plt Recent Labs 04/27/18 0443 04/26/18 1509 04/26/18 0439 WBC 5.9 4.8 4.6 HGB 8.8* 8.8* 7.9* HCT 27.0* 27.5* 24.6* PLATELET 302 273 253 Last 3 Lytes Recent Labs 04/27/18 0443 04/26/18 0439 04/25/18 0518 NA 132* 138 138 K 5.6* 5.2* 5.2* CL 101 106 106 CO2 18* 19* 19* BUN 41* 37* 39* CREATININE 2.81* 2.80* 2.58* Last Ca, Mg, Phos Recent Labs 04/27/18 0443 CALCIUM 8.4* Last 3 Coags No results for input(s): PT, INR, PTT in the last 168 hours. Microbiology - Rare Corynebacterium species, sensitivities pending. New Studies None Assessment & Plan Christy Ginna Ambrose is a 57 y.o. male s/p brachial artery repair following ruptured AVF with subsequent cardiac arrest. Patient continues to make steady progress. LUE with large wound currently being managed with negative pressure wound VAC therapy. Granulation tissue noted to be forming well. Now s/p ligation of radial and resection of his distal forearm AVF and a split thickness skin graft on 04/26. ID: Current regimen to the following: - Vancomycin, to be continued at discharge on OPAT - getting a PICC placed today. - Metronidazole 500mg BID - Ciprofloxacin 500mg BID - Continue to follow cultures. - Will determine the length of treatment duration prior to discharge. Plastics: - 5-7 days: remove bolster. Then dressing - every other day adaptic and gauze - 2 weeks: remove donor site dressing, may wash over all areas. Then dressing - Skin graft: Aquaphor or Adaptic and cover until healed. Donor site: Aquapohr and telfa until healed. - when no longer using dressings, apply lotion with aloe twice daily. - 3-6 month: f/u with attending - No shower until 2 weeks post-op. Transplant: continue current immunosuppression regimen. BP control improving with addition of PRN labetalol, will consider increasing standing medications in conjunction with transplant medicine. Creatinine is stable. Encourage PO intake today as Potassium was elevated on morning labs. Will f/u with labs tomorrow. DISPO: Patient will likely need an inpatient rehab facility. Natalya Jacobsen MD General Surgery PGY-1 [id number] * Hay Sparks MD - 04/27/2018 8:46 AM EDT Plastic Surgery Service Progress Note ID: Christy Ambrose is a 57 y.o. 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 He was taken to the OR with Vascular surgery for exploration, repair of AVF with patch angioplasty and L forearm and hand fasciotomies. Plastic surgery is consulted for management of the fasciotomy wounds. The patient underwent wound vac changes to the wound, the wound became clean with good granulation tissue and skin grafting was performed on 04/26. S/IE: - OR yesterday for coverage of left arm wound with skin graft - No events overnight Vitals: Last value Range last 8hrs Temperature Temp: 36.6 ??C (97.9 ??F) Temp: [36.2 ??C (97.2 ??F)-36.6 ??C (97.9 ??F)] Heart Rate Heart Rate: 63 Heart Rate: -- Blood Pressure BP: (!) 148/92(rn notified) BP: (135-148)/(90-92) Respiratory Rate Resp: 16 Resp: [16-18] SpO2 SpO2: 97 % SpO2: [96 %-97 %] Physical Exam: General: alert, in no acute distress, resting comfortably in bed LUE: wound vac in place holding suction over skin graft Left thigh: Allevyn dressing in place over skin graft donor site; minimal strike through Labs: Recent Labs 04/27/18 0443 04/26/18 1509 04/26/18 0439 HGB 8.8* 8.8* 7.9* PLATELET 302 273 253 Tissue cultures (Left arm snuffbox): 04/19/18 - Corynebacterium Assessment: Christy Ambrose is a 57 y.o. 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 Patient underwent skin grafting for wound closure yesterday (04/26) and remains stable post-op with all dressings intact. Plan: - VAC takedown to occur Wednesday 05/02 - Left thigh: Allevyn dressing to remain in place and dry for 2wks post-op (until 05/10) - no need to hold SQH - Continue abx per ID/primary: vanc/flagyl/cipro - From plastic surgery standpoint ok for d/c and can return to clinic Wednesday to have VAC removed. Will place appt request. Should pt remain in house, plastics will take down VAC Wednesday. - Appreciate rest of care by primary team PANCHITO Rios Plastic surgery team pager: [phone] 04/27/2018 8:46 AM Attending: Plan discussed and agree as documented. Hay Sparks MD Plastic Surgery * Thelma Solitario MD - 04/27/2018 1:04 AM EDT Surgery Post Op Check Christy Ginna Ambrose is a 57 y.o. male status post arm STSG and wound vac S: No nausea/vomiting, chest pain, SOB, pain well controlled, offers no complaints O: Temp: [36.2 ??C (97.2 ??F)-36.7 ??C (98.1 ??F)] Heart Rate: -- Resp: [16-18] BP: (128-135)/(89-90) SpO2: [96 %-99 %] Heart Rate from SPO2: [61 bpm-67 bpm] I/O last 3 completed shifts: In: 2752 [P.O.:1720; I.V.:1032] Out: 3347 [Urine:3347] I/O this shift: In: 780 [P.O.:780] Out: 200 [Urine:200] Physical Exam General: NAD, resting comfortably HEENT: PERRL, anicteric sclerae CVS: Regular rate Pulm: Clear bilaterally Abd: soft, non tender, non distended Ext: LUE with wound vac to suction. No leaks. Scant sanguinous drainage in canister. Donor site with allevyn in place Neuro: CN 2-12 grossly intact, nonfocal, moving all extremities. AP Christy Ginna Ambrose is a 57 y.o. male status post STSG and wound vac, currently in stable condition and recovering well - pain well controlled - hemodynamically stable - UOP adequate Thelma Solitario Pager: [phone] 04/27/18 * Domi Norman RN - 04/26/2018 3:57 PM EDT Pt. Arrived back on the unit around 1300 from the OR. AAOx4. VSS. Afebrile. Pt denies nausea. Pain well controlled with PRN Oxycodone and scheduled meds. Incisions CDI. Wound vac in place. Will continue to monitor. Domi Norman RN * Tana Bennett LD - 04/26/2018 2:32 PM EDT Nutrition Services Follow-up Note Recommendation/Plan: Diet at MD discretion, consider [facility] diet with K restriction May liberalize to [facility] if K is WNL Appreciate updated weights Monitor and encourage PO intake Nutrition will continue to follow. Text paged MD who referred me to transplant team. Christy Ambrose is a 57 y.o. male Active Problems: Hemorrhagic shock Lab Results Component Value Date NA 138 04/26/2018 K 5.2 (H) 04/26/2018 CL 106 04/26/2018 CO2 19 (L) 04/26/2018 BUN 37 (H) 04/26/2018 CREATININE 2.80 (H) 04/26/2018 GLUCOSE 93 04/26/2018 MAGNESIUM 0.60 (L) 04/06/2018 CALCIUM 8.2 (L) 04/26/2018 PHOS 3.3 04/06/2018 AST 22 04/06/2018 ALT 20 04/06/2018 ALKPHOS 57 04/06/2018 BILITOT 0.3 04/06/2018 BILIDIR 0.2 05/15/2017 TRIG 76 11/26/2016 Pert. Meds: cipro 2x/day, synthroid, protonix, metoprolol, cellcept, laxatives, zofran, others noted I/O last 3 completed shifts: In: 2009 [P.O.:1630; I.V.:379] Out: 3207 [Urine:3207] Estimated body mass index is 27.21 kg/m?? as calculated from the following: Height as of this encounter: 178 cm (5' 10.08). Weight as of this encounter: 86.2 kg (190 lb 0.6 oz). Weight Admission (kg): 91.6 kg Diet: Regular Appetite: Good Pt interview: Patient reports his appetite is good, he is in good spirits during encounter regarding clinical course. He states he eats well when he is able to eat but that he could not eat today. Heis looking forward to dinner tonight. RN present and confirmed pt answers as he sometimes gets off topic. Tolerating PO intake well. He has no questions at this time but knows nutrition is here to fol low up. JERICHO Jha * Natalya Jacobsen MD - 04/26/2018 11:27 AM EDT Vascular Surgery Progress Note Patient ID Christy Ambrose is a 57 y.o. 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 Operations This Hospitalization 04/06: -Exploration of LUE AVF, repair of AVF, brachial artery patch angioplasty -Axillary venous phlebotomy -Forearm and hand fasciotomies 04/14: 1. Sharp excisional debridement of skin, subcutaneous tissue, and muscle 2. Partial closure of open fasciotomies 3. Wound vac negative pressure therapy dressing placement 04/19: Resection of prior L snuff box radiocephalic AVF, radial artery ligation 04/25: Vac change at the bed side. Subjective Pain well controlled this AM. Denies CP, SOB, N/V. No complaints over night. Objective Temp: [36.5 ??C (97.7 ??F)-37.2 ??C (99 ??F)] Heart Rate: [52] Resp: [16-18] BP: (140-164)/(86-100) SpO2: [96 %-98 %] Heart Rate from SPO2: [55 bpm-58 bpm] Body mass index is 27.21 kg/m??. Intake/Output Summary (Last 24 hours) at 04/26/2018 1131 Last data filed at 04/26/2018 1000 Gross per 24 hour Intake 1882 ml Output 2047 ml Net -165 ml Physical Exam General: alert, cooperative, NAD HEENT: normocephalic, atraumatic Heart: regular rate, and rhythm Pulmonary: non-labored breathing on room air Neuro: no focal deficits Extremities: LUE: wound vac c/d/i, good seal. Ulnar and palmar signal. Able to wiggle fingers and move wrist, 2+ edema of hand present but improving, radial incision c/d/i left open to air, minimallyerythematous or edematous with no drainage. Labs Last 3 wbc, hgb, hct plt Recent Labs 04/26/1843804/25/1851704/24/18416 WBC 4.6 5.4 4.7 HGB 7.9* 8.2* 7.9* HCT 24.6* 26.1* 24.6* PLATELET 253 327 283 Last 3 Lytes Recent Labs 04/26/1843804/25/1851704/24/18416 NA 138 138 138 K 5.2* 5.2* 5.2* CL 106 106 108* CO2 19* 19* 20* BUN 37* 39* 38* CREATININE 2.80* 2.58* 2.74* Last Ca, Mg, Phos Recent Labs 04/26/18438 CALCIUM 8.2* Last 3 Coags Recent Labs 04/20/18 0548 PT 11.6 INR 1.0 PTT 27 Microbiology - Rare Corynebacterium species, sensitivities pending. New Studies None Assessment & Plan Christy Ginna Ambrose is a 57 y.o. male s/p brachial artery repair following ruptured AVF with subsequent cardiac arrest. Patient continues to make steady progress. LUE with large wound currently being managed with negative pressure wound VAC therapy. Granulation tissue noted to be forming well. Now s/p ligation of radial and resection of his distal forearm AVF and wound vac change. ID: Modify current regimen to the following: - Vancomycin, to be continued at discharge on OPAT - Metronidazole 500mg BID - Ciprofloxacin 500mg BID - Discontinue Zosyn - Continue to follow cultures. Plastics: Planning for STSG in the OR today. Patient has been NPO and had a wound vac change yesterday. Transplant: continue current immunosuppression regimen. BP control improving with addition of PRN labetalol, will consider increasing standing medications in conjunction with transplant medicine. Creatinine is down trending. Natalya Jacobsen MD General Surgery PGY-1 [id number] * Dania Oliveira OTA - 04/26/2018 11:22 AM EDT Attempted to see pt today for OT treatment. Patient unavailable 2/2 scheduled OR procedure. Will follow up as available / appropriate for Occupational Therapy Services. Pager [phone] NICKY Irizarry/John Occupational Therapy Rehabilitation Department * Hay Sparks MD - 04/26/2018 8:01 AM EDT Plastic Surgery Service Progress Note ID: Christy Ambrose is a 57 y.o. 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 He was taken to the OR with Vascular surgery for exploration, repair of AVF with patch angioplasty and L forearm and hand fasciotomies. Plastic surgery is consulted for management of the fasciotomy wounds. The patient has undergone wound vac changes to the wound and the wound is currently clean and granulating well. S/IE: - no events overnight - NPO since midnight for OR today for skin grafting Vitals: Last value Range last 8hrs Temperature Temp: 36.7 ??C (98.1 ??F) Temp: [36.7 ??C (98.1 ??F)-37.2 ??C (99 ??F)] Heart Rate Heart Rate: 52 Heart Rate: [52] Blood Pressure BP: 152/90 BP: (152)/(86-90) Respiratory Rate Resp: 18 Resp: [18] SpO2 SpO2: 98 % SpO2: [96 %-98 %] Physical Exam: General: alert, in no acute distress, standing at bedside with nursing staff when team entered room LUE: wound vac in place holding suction Labs: Recent Labs 04/26/18 0439 04/25/18 0518 04/24/18 0417 04/20/18 0548 HGB 7.9* 8.2* 7.9* < > 7.8* PLATELET 253 327 283 < > 302 INR -- -- -- -- 1.0 < > = values in this interval not displayed. Tissue cultures (Left arm snuffbox): 04/19/18 - Corynebacterium Assessment: Christy Ambrose is a 57 y.o. 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 Plan: - OR today for skin grafting (04/26) - NPO since midnight - Pt may not go to OR until later today - recommending consider running fluids - Consent signed and in binder - no need to hold SQH - Continue abx per ID: vanc/flagyl/cipro - Appreciate rest of care by primary team PANCHITO Rios Plastic surgery team pager: [phone] 04/26/2018 8:01 AM Attending: Pt seen and examined. We discussed the plan for skin grafting in detail. We discussed potential risks and complications which include but are not limited to: Pain, bleeding, infection, scarring, asymmetry, hematoma, seroma, poor cosmetic outcome, failure ofprocedure, possible need for revision, damage to adjacent structures. Hay Sparks MD Plastic Surgery * Danielle Peoples DO - 04/25/2018 5:08 PM EDT Infectious Disease Progress Note Subjective: Feels well. No nausea, vomiting, rash or diarrhea. VS: 36.5 HR: 58 BP: 140/92 RR: 16 97% RA Gen: alert, no acute distress CVS: S1S2 RRR Lungs: clear Skin: warm, Gianni wrap/bandage in place Labs: reviewed. Micro: reviewed. Tissue culture growing Corynebacteria Assessment: 57 year-old gentleman with history of renal transplant in 2002 on cellcept and tacrolimus who presented with ruptured left UE AVF with compartment syndrome of left forearm s/p exploration, repair, brachial artery patch angioplasty, fasciotomies and resection of left radiocephalic AVF with radial artery ligation. His tissue culture from OR grew corynebacterium and he is on Piperacillin/tazobactam and vancomycin. Upon speaking with surgical team there was concern for infection in his left UE AVF (chronic clot concern for seeding) and in his radiocephalic AVF as it grew quickly and had cellulitic changes concerning for mycotic dilation due to infection. He will require treatment for endovascular infection and will need to keep in mind he has prosthetic patch/repair in place. Planned for skinflap tomorrow ?? Recommendations: -Discontinue Piperacillin/tazobactam -Continue vancomycin IV--can discharge on OPAT -Start metronidazole 500 mg bid and ciprofloxacin 500 mg po bid -Follow cultures ?? This patient was seen and discussed with ID attending Dr. Medina Recommendations discussed with primary treating team. ID will follow. Please call with questions Danielle Peoples DO Infectious Disease Fellow Pager [phone] Associated attestation - Krut Medina MD - 04/26/2018 8:27 AM EDT Attending Addendum: I have seen and examined the patient, reviewed the data and agree with the note by Dr. Peoples. Not entirely clear if this was infection, we do not have cultures or pathology to help guide us. Therefore, we will treat infection and will have to make a decision at the end of treatment whether ornot we need to continue suppression given the fact that he had vascular repair. * Hay Sparks MD - 04/25/2018 1:10 PM EDT Plastic Surgery Service Progress Note ID: Christy Ambrose is a 57 y.o. 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 He was taken to the OR with Vascular surgery for exploration, repair of AVF with patch angioplasty and L forearm and hand fasciotomies. Plastic surgery is consulted for management of the fasciotomy wounds. The patient has undergone wound vac changes to the wound and the wound is currently clean and granulating well. S/IE: - no events overnight Vitals: Last value Range last 8hrs Temperature Temp: 36.9 ??C (98.4 ??F) Temp: [36.9 ??C (98.4 ??F)] Heart Rate Heart Rate: 70 Heart Rate: [70] Blood Pressure BP: 130/86 BP: (130-183)/(84-97) Respiratory Rate Resp: 18 Resp: [18] SpO2 SpO2: 97 % SpO2: [96 %-97 %] Physical Exam: General: alert, in no acute distress, conversing with team appropriately on rounds LUE: wound vac in place holding suction Labs: Recent Labs 04/25/18 0518 04/24/18 0417 04/23/18 0456 04/20/18 0548 04/19/18 0625 HGB 8.2* 7.9* 8.0* < > 7.8* 7.7* PLATELET 327 283 317 < > 302 274 INR -- -- -- -- 1.0 1.0 < > = values in this interval not displayed. Assessment: Christy Ambrose is a 57 y.o. 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 Plan: - OR tomorrow for skin grafting (04/26) - NPO at [facility] - Obtain consent or OR tomorrow - no need to hold [facility] PANCHITO Rios Plastic surgery team pager: [phone] 04/25/2018 1:10 PM Attending: Plan discussed and agree as documented. Hay Sparks MD Plastic Surgery * Natalya Jacobsen MD - 04/25/2018 11:20 AM EDT Vascular Surgery Progress Note Patient ID Christy Ambrose is a 57 y.o. 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 Operations This Hospitalization 04/06: -Exploration of LUE AVF, repair of AVF, brachial artery patch angioplasty -Axillary venous phlebotomy -Forearm and hand fasciotomies 04/14: 1. Sharp excisional debridement of skin, subcutaneous tissue, and muscle 2. Partial closure of open fasciotomies 3. Wound vac negative pressure therapy dressing placement 04/19: Resection of prior L snuff box radiocephalic AVF, radial artery ligation 04/25: Vac change at the bed side. Subjective Pain well controlled this AM. Denies CP, SOB, N/V. No complaints over night. Objective Temp: [36.5 ??C (97.7 ??F)-37.1 ??C (98.8 ??F)] Heart Rate: [52-70] Resp: [12-18] BP: (130-183)/(58-101) SpO2: [96 %-100 %] Heart Rate from SPO2: [51 bpm-78 bpm] Body mass index is 27.21 kg/m??. Intake/Output Summary (Last 24 hours) at 04/25/2018 1127 Last data filed at 04/25/2018 0900 Gross per 24 hour Intake 1742 ml Output 2160 ml Net -418 ml Physical Exam General: alert, cooperative, NAD HEENT: normocephalic, atraumatic Heart: regular rate, and rhythm Pulmonary: non-labored breathing on room air Neuro: no focal deficits Extremities: LUE: wound vac c/d/i, good seal. Ulnar and palmar signal. Able to wiggle fingers and move wrist, 2+ edema of hand present but improving, radial incision c/d/i left open to air, non-erythematous or edematous with no drainage. Labs Last 3 wbc, hgb, hct plt Recent Labs 04/25/1851704/24/1841604/23/18455 WBC 5.4 4.7 5.2 HGB 8.2* 7.9* 8.0* HCT 26.1* 24.6* 24.3* PLATELET 327 283 317 Last 3 Lytes Recent Labs 04/25/1851704/24/1841604/23/18455 NA 138 138 137 K 5.2* 5.2* 4.9 CL 106 108* 103 CO2 19* 20* 20* BUN 39* 38* 36* CREATININE 2.58* 2.74* 2.49* Last Ca, Mg, Phos Recent Labs 04/25/18 0518 CALCIUM 8.1* Last 3 Coags Recent Labs 04/20/18 0548 04/19/18 0625 PT 11.6 11.5 INR 1.0 1.0 PTT 27 27 Microbiology - Rare Corynebacterium species, sensitivities pending. New Studies None Assessment & Plan Christy Ambrose is a 57 y.o. male s/p brachial artery repair following ruptured AVF with subsequent cardiac arrest. Patient continues to make steady progress. LUE with large wound currently being managed with negative pressure wound VAC therapy. Granulation tissue noted to be forming well. Now s/p ligation of radial and resection of his distal forearm AVF and wound vac change. ID: continue current regimen, will follow up final cultures (Rare Corynebacterium species - sensitivities pending). Appreciate input. Plastics: Planning for STSG in the OR on Wednesday. Will make NPO Wednesday night. Vac change today at 11:30am with pre-medication. Transplant: continue current immunosuppression regimen. BP control improving with addition of PRN labetalol, will consider increasing standing medications in conjunction with transplant medicine. Creatinine is down trending. Natalya Jacobsen MD General Surgery PGY-1 [id number] * Tristin Marrero MD - 04/24/2018 10:13 AM EDT Vascular Surgery Progress Note Patient ID Christy Ambrose is a 57 y.o. 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 Operations This Hospitalization 04/06: -Exploration of LUE AVF, repair of AVF, brachial artery patch angioplasty -Axillary venous phlebotomy -Forearm and hand fasciotomies 04/14: 1. Sharp excisional debridement of skin, subcutaneous tissue, and muscle 2. Partial closure of open fasciotomies 3. Wound vac negative pressure therapy dressing placement 04/19: Resection of prior L snuff box radiocephalic AVF, radial artery ligation Subjective Pain well controlled this AM. Denies CP, SOB, N/V. Objective Temp: [36.6 ??C (97.9 ??F)-37.1 ??C (98.8 ??F)] Heart Rate: -- Resp: [14-17] BP: (148-169)/(94-109) SpO2: [95 %-98 %] Heart Rate from SPO2: [51 bpm-62 bpm] Body mass index is 27.21 kg/m??. Intake/Output Summary (Last 24 hours) at 04/24/2018 1013 Last data filed at 04/24/2018 0459 Gross per 24 hour Intake 461 ml Output 2500 ml Net -2039 ml Physical Exam General: alert, cooperative, NAD HEENT: normocephalic, atraumatic Heart: regular rate, and rhythm Pulmonary: non-labored breathing on room air Neuro: no focal deficits Extremities: LUE: wound vac c/d/i, good seal. Ulnar and palmar signal. Able to wiggle fingers and move wrist, 2+ edema of hand present but improving, radial incision c/d/i left open to air Labs Last 3 wbc, hgb, hct plt Recent Labs 04/24/1841604/23/186 04/22/18 0534 WBC 4.7 5.2 5.5 HGB 7.9* 8.0* 8.0* HCT 24.6* 24.3* 24.8* PLATELET 283 317 289 Last 3 Lytes Recent Labs 04/24/1841604/23/18 0456 04/22/18 0534 NA 138 137 138 K 5.2* 4.9 5.3* CL 108* 103 106 CO2 20* 20* 19* BUN 38* 36* 38* CREATININE 2.74* 2.49* 2.30* Last Ca, Mg, Phos Recent Labs 04/24/18416 CALCIUM 8.0* Last 3 Coags Recent Labs 04/20/18 0548 04/19/18 0625 04/18/18 0526 PT 11.6 11.5 11.2 INR 1.0 1.0 1.0 PTT 27 27 27 Microbiology ?? Tissue culture [[id number]] (Abnormal) Collected: 04/19/18924 ? Lab Status: Preliminary result Specimen: Skin Updated: 04/20/18758 ? Tissue Culture No growth to date. (A) ? Gram Stain -- (A) ? Many Neutrophils seen Rare Gram Negative Rods seen New Studies None Assessment & Plan Christy Ginna Ambrose is a 57 y.o. male s/p brachial artery repair following ruptured AVF with subsequent cardiac arrest. Patient continues to make steady progress. LUE with large wound currently being managed with negative pressure wound VAC therapy. Granulation tissue noted to be forming well. Now s/p ligation of radial and resection of his distal forearm AVF and wound vac change. ID: continue current regimen, will follow up final cultures (GNR, no growth to date). Appreciate input. Plastics: Planning for STSG in the OR on Wednesday. Will make NPO Wednesday night. Transplant: continue current immunosuppression regimen, will increase BP meds. Appreciate input. Will touch base re: elevated Cr today. Tristin Marrero MD' Vascular surgery * Camden Sol MD - 04/24/2018 8:24 AM EDT Plastic Surgery Service Progress Note S/IE: - no events Vitals: Last value Range last 8hrs Temperature Temp: 37 ??C (98.6 ??F) Temp: [37 ??C (98.6 ??F)-37.1 ??C (98.8 ??F)] Heart Rate Heart Rate: 68 Heart Rate: -- Blood Pressure BP: (!) 169/103 BP: (155-169)/(95-103) Respiratory Rate Resp: 14 Resp: [14-16] SpO2 SpO2: 97 % SpO2: [95 %-97 %] Physical Exam: General: asleep LUE: wound vac in place holding suction Labs: Recent Labs 04/24/18 0417 04/23/18 0456 04/22/18 0534 04/20/18 0548 04/19/18 0625 04/18/18 0526 HGB 7.9* 8.0* 8.0* < > 7.8* 7.7* 8.0* PLATELET 283 317 289 < > 302 274 305 INR -- -- -- -- 1.0 1.0 1.0 < > = values in this interval not displayed. Assessment: Christy Ambrose is a 57 y.o. 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 Plan: - skin grafting Wednesday - NPO at [facility] Wednesday night - no need to hold [facility] Camden Sol MD Plastic Surgery, PGY-5 04/24/2018 8:25 AM * Tristin Marrero MD - 04/23/2018 8:46 AM EDT Vascular Surgery Progress Note Patient ID Christy Ambrose is a 57 y.o. 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 Operations This Hospitalization 04/06: -Exploration of LUE AVF, repair of AVF, brachial artery patch angioplasty -Axillary venous phlebotomy -Forearm and hand fasciotomies 04/14: 1. Sharp excisional debridement of skin, subcutaneous tissue, and muscle 2. Partial closure of open fasciotomies 3. Wound vac negative pressure therapy dressing placement 04/19: Resection of prior L snuff box radiocephalic AVF, radial artery ligation Subjective Pain well controlled this AM. Denies CP, SOB, N/V. Vac change yesterday with Plastic Surgery present. Objective Temp: [36.2 ??C (97.2 ??F)-36.8 ??C (98.2 ??F)] Heart Rate: -- Resp: [15-18] BP: (148-157)/(92-98) SpO2: [97 %-99 %] Heart Rate from SPO2: [50 bpm-65 bpm] Body mass index is 27.21 kg/(m^2). Intake/Output Summary (Last 24 hours) at 04/23/18 0846 Last data filed at 04/23/18 0630 Gross per 24 hour Intake 780 ml Output 2325 ml Net -1545 ml Physical Exam General: alert, cooperative, NAD HEENT: normocephalic, atraumatic Heart: regular rate, and rhythm Pulmonary: non-labored breathing on room air Neuro: no focal deficits Extremities: LUE: wound vac c/d/i, good seal. Ulnar and palmar signal. Able to wiggle fingers and move wrist, 2+ edema of hand present but improving, radial incision c/d/i with scant serous drainage,dressing replaced Labs Last 3 wbc, hgb, hct plt Recent Labs 04/23/186 04/22/18 0534 04/21/18 0550 WBC 5.2 5.5 5.8 HGB 8.0* 8.0* 7.7* HCT 24.3* 24.8* 24.2* PLATELET 317 289 316 Last 3 Lytes Recent Labs 04/23/186 04/22/18 0534 04/21/18 0550 NA 137 138 138 K 4.9 5.3* 4.8 CL 103 106 105 CO2 20* 19* 21* BUN 36* 38* 34* CREATININE 2.49* 2.30* 2.30* Last Ca, Mg, Phos Recent Labs 04/23/18 0456 CALCIUM 8.1* Last 3 Coags Recent Labs 04/20/18 0548 04/19/18 0625 04/18/18 0526 PT 11.6 11.5 11.2 INR 1.0 1.0 1.0 PTT 27 27 27 Microbiology ?? Tissue culture [[id number]] (Abnormal) Collected: 04/19/18924 ? Lab Status: Preliminary result Specimen: Skin Updated: 04/20/18758 ? Tissue Culture No growth to date. (A) ? Gram Stain -- (A) ? Many Neutrophils seen Rare Gram Negative Rods seen New Studies None Assessment & Plan Christy Ginna Ambrose is a 57 y.o. male s/p brachial artery repair following ruptured AVF with subsequent cardiac arrest. Patient continues to make steady progress. LUE with large wound currently being managed with negative pressure wound VAC therapy. Granulation tissue noted to be forming well. Now s/p ligation of radial and resection of his distal forearm AVF and wound vac change. ID: continue current regimen, will follow up final cultures (GNR, no growth to date). Appreciate input. Plastics: Planning for STSG in the OR on Wednesday. Will make NPO Wednesday night. Transplant: continue current immunosuppression regimen, will increase BP meds. Appreciate input. Tristin Marrero MD' Vascular surgery * Danielle Peoples DO - 04/22/2018 4:25 PM EDT Infectious Disease Update Chart reviewed and spoke with patient. Feels well, no rashes or diarrhea. Arm pain is controlled. Feels numb. VSS- afebrile. Labs reviewed. Micro- awaiting tissue culture results- Growing gram negative rods- spoke with lab 04/22- waiting for enough growth to proceed with work-up. Plan to treat for e ndovascular infection and currently on Piperacillin/tazobactam. Will make further recommendations once GNRs are identified to plan a course of therapy. Associated attestation - Katarzyna Guevara MD - 04/22/2018 5:02 PM EDT I have seen the patient and reviewed the history and physical and I agree with the details as written by Dr Peoples. The assessment and plan were formulated in discussion with me and I agree with them as documented. I would add: Physical exam: Vitals: 04/22/18 0622 04/22/18 0733 04/22/18 1132 04/22/18 1629 BP: (!) 163/105 (!) 161/104 (!) 152/98 (!) 148/94 BP Location (NBP): Right arm Patient Position: Sitting Pulse: Resp: 16 16 Temp: 36.6 ??C (97.9 ??F) 36.8 ??C (98.2 ??F) 36.8 ??C (98.2 ??F) TempSrc: Oral Oral Oral SpO2: 96% 97% 98% 99% Weight: Height: GEN: well-appearing man in NAD L arm: wrapped in GIANNI with underlying wound vac, able to move fingers A/P We will plan to treat for endovascular infection. Awaiting speciation and sensitivities on GNRs; continue current antimicrobials in the meantime. Katarzyna Guevara MD Infectious Disease * Karis Mejia MSW - 04/22/2018 1:49 PM EDT Discharge Planning: O: Telephone call received from Rachna Muro ([facility]) who reports that patient's Mother is already assigned to worker Lalitha. Rachna suggested I call Mother and remind her that she has made contact with the agency. Rachna cannot release any information to [facility] without a signed release. Federal Appellate Clerk attempted to call Mother today, no answer, voice mailbox is full and cannot be accessed. P: Will attempt to reach Mother later today. Will continue to follow with team. * Bhargavi Junior MD - 04/22/2018 7:47 AM EDT Vascular Surgery Progress Note Patient ID Christy Ambrose is a 57 y.o. 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 Operations This Hospitalization 04/06: -Exploration of LUE AVF, repair of AVF, brachial artery patch angioplasty -Axillary venous phlebotomy -Forearm and hand fasciotomies 04/14: 1. Sharp excisional debridement of skin, subcutaneous tissue, and muscle 2. Partial closure of open fasciotomies 3. Wound vac negative pressure therapy dressing placement 04/19: Resection of prior L snuff box radiocephalic AVF, radial artery ligation Subjective Pain present but tolerable. Pt reminded that he may have up to 15mg oxycodone. Otherwise eating well, no complaints. Objective Temp: [36.4 ??C (97.5 ??F)-37.1 ??C (98.8 ??F)] Heart Rate: -- Resp: [16-18] BP: (148-201)/(92-107) SpO2: [94 %-97 %] Heart Rate from SPO2: [51 bpm-66 bpm] Body mass index is 27.21 kg/(m^2). Intake/Output Summary (Last 24 hours) at 04/22/18 0747 Last data filed at 04/22/18 0700 Gross per 24 hour Intake 1440 ml Output 2775 ml Net -1335 ml Physical Exam General: alert, cooperative, NAD HEENT: normocephalic, atraumatic Heart: regular rate, and rhythm Pulmonary: non-labored breathing on room air Neuro: no focal deficits Extremities: LUE: wound vac c/d/i, good seal. Ulnar and palmar signal. Able to wiggle fingers and move wrist, 2+ edema of hand present but improving, radial incision c/d/i. Labs Last 3 wbc, hgb, hct plt Recent Labs 04/22/18 0534 04/21/18 0550 04/20/18 0548 WBC 5.5 5.8 7.3 HGB 8.0* 7.7* 7.8* HCT 24.8* 24.2* 23.7* PLATELET 289 316 302 Last 3 Lytes Recent Labs 04/22/18 0534 04/21/18 0550 04/20/18 0548 NA 138 138 138 K 5.3* 4.8 4.7 CL 106 105 104 CO2 19* 21* 21* BUN 38* 34* 33* CREATININE 2.30* 2.30* 2.38* Last Ca, Mg, Phos Recent Labs 04/22/18 0534 CALCIUM 8.0* Last 3 Coags Recent Labs 04/20/18 0548 04/19/18 0625 04/18/18 0526 PT 11.6 11.5 11.2 INR 1.0 1.0 1.0 PTT 27 27 27 Microbiology Tissue culture [[id number]] (Abnormal) Collected: 04/19/18924 ? Lab Status: Preliminary result Specimen: Skin Updated: 04/19/18 1014 ? Gram Stain -- (A) ? Many Neutrophils seen Rare Gram Negative Rods seen New Studies None Assessment & Plan Christy Ginna Ambrose is a 57 y.o. male s/p brachial artery repair following ruptured AVF with subsequent cardiac arrest. Patient continues to make steady progress. LUE with large wound currently being managed with negative pressure wound VAC therapy. Granulation tissue noted to be forming well. Now s/p ligation of radial and resection of his distal forearm AVF and wound vac change. ID: continue current regimen, will follow up final cultures (GNR, no growth to date). Appreciate input. Plastics: will have them eval at vac change this afternoon Transplant: continue current immunosuppression regimen, will increase BP meds. Appreciate input. Bhargavi Junior MD' Vascular surgery * Dania Oliveira OTA - 04/21/2018 1:45 PM EDT Attempted to see pt today for OT treatment. Upon arrival, pt had just returned from ambulating unit3x w/ staff reporter. RN reports pt is supervision while ambulating to/from bathroom and requires min A for hygiene thoroughness. Pt deferred OT until tomorrow; pt education provided re: importance of frequent functional mobility and participation w/ ADL tasks. Will follow up as available / appropriate for Occupational Therapy Services. Pager [phone] NICKY Irizarry/John Occupational Therapy Rehabilitation Department * Rasta Hernández MD - 04/21/2018 7:53 AM EDT Vascular Surgery Progress Note Patient ID Christy Ambrose is a 57 y.o. 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 Operations This Hospitalization 04/06: -Exploration of LUE AVF, repair of AVF, brachial artery patch angioplasty -Axillary venous phlebotomy -Forearm and hand fasciotomies 04/14: 1. Sharp excisional debridement of skin, subcutaneous tissue, and muscle 2. Partial closure of open fasciotomies 3. Wound vac negative pressure therapy dressing placement 04/19: Resection of prior L snuff box radiocephalic AVF, radial artery ligation Subjective No acute complaints. Pain controlled. Doing well. Objective Temp: [36.6 ??C (97.9 ??F)-37.2 ??C (99 ??F)] Heart Rate: [68] Resp: [14-17] BP: (137-161)/(79-95) SpO2: [87 %-100 %] Heart Rate from SPO2: [56 bpm-64 bpm] Body mass index is 27.21 kg/(m^2). Intake/Output Summary (Last 24 hours) at 04/21/18 0753 Last data filed at 04/21/18 0410 Gross per 24 hour Intake 1520 ml Output 1155 ml Net 365 ml Physical Exam General: alert, cooperative, NAD HEENT: normocephalic, atraumatic Heart: regular rate, and rhythm Pulmonary: non-labored breathing on room air Neuro: no focal deficits Extremities: LUE: wound vac c/d/i, good seal. Ulnar and palmar signal. Able to wiggle fingers and move wrist, 2+ edema of hand, radial incision c/d/i. Labs Last 3 wbc, hgb, hct plt Recent Labs 04/21/18 0550 04/20/18 0548 04/19/18 0625 WBC 5.8 7.3 5.5 HGB 7.7* 7.8* 7.7* HCT 24.2* 23.7* 23.3* PLATELET 316 302 274 Last 3 Lytes Recent Labs 04/21/18 0550 04/20/18 0548 04/19/18 0625 NA 138 138 137 K 4.8 4.7 4.7 CL 105 104 104 CO2 21* 21* 21* BUN 34* 33* 35* CREATININE 2.30* 2.38* 2.12* Last Ca, Mg, Phos Recent Labs 04/21/18 0550 CALCIUM 8.1* Last 3 Coags Recent Labs 04/20/18 0548 04/19/18 0625 04/18/18 0526 PT 11.6 11.5 11.2 INR 1.0 1.0 1.0 PTT 27 27 27 Microbiology Tissue culture [[id number]] (Abnormal) Collected: 04/19/18924 ? Lab Status: Preliminary result Specimen: Skin Updated: 04/19/18 1014 ? Gram Stain -- (A) ? Many Neutrophils seen Rare Gram Negative Rods seen New Studies None Assessment & Plan Christymaty Ambroes is a 57 y.o. male s/p brachial artery repair following ruptured AVF with subsequent cardiac arrest. Patient continues to make steady progress. LUE with large wound currently being managed with negative pressure wound VAC therapy. Granulation tissue noted to be forming well. Now s/p ligation of radial and resection of his distal forearm AVF and wound vac change. ID: continue current regimen, will follow up final cultures. Appreciate input. Plastics: will have them eval at next vac change (Wednesday). Transplant: continue current immunosuppression regimen. Appreciate input. Rasta Cox [place] Vascular Surgery * Kelsey Tyler, RD - 04/20/2018 12:27 PM EDT Nutrition Progress Note Christy Ambrose is a 57 y.o. male Reason for intervention: Follow up Nutrition Recommendations: 1. Continue cardiac diet which is a no added salt diet. 2. Monitor need for potassium controlled diet given CKD Stage 4 3. Continue to monitor and encourage appropriate PO intake 4. Monitor weights 5. Nutrition team to continue to follow patient at least once weekly Patient Active Problem List Diagnosis Code ??? Epilepsy G40.909 ??? End stage renal disease N18.6 ??? Gout M10.9 ??? Hypertension I10 ??? Left leg DVT I82.402 ??? Kidney replaced by transplant Z94.0 ??? IgA nephropathy N02.8 ??? BCC (basal cell carcinoma of skin) C44.91 ??? Acne rosacea L71.9 ??? Nevus D22.9 ??? Rosacea L71.9 ??? Anticoagulated on Coumadin [...] N18.4 ??? 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 H/O kidney transplant Z94.0 ??? TRISTIAN (acute kidney injury) N17.9 ??? Weight loss R63.4 ??? Gastrointestinal hemorrhage K92.2 ??? Bradycardia R00.1 ??? Left renal mass N28.89 ??? Renal mass N28.89 ??? 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 Hemorrhagic shock R57.8 Past Medical History: Diagnosis Date ??? BP (high blood pressure) ??? DVT (deep venous thrombosis) ??? Gout ??? Hypertension ??? Kidney problem ??? Pneumonia ??? TBI (traumatic brain injury) 1979 Active Orders Diet Cardiac diet Frequency: Effective Now Number of Occurrences: Until Specified Admit Weight: 91.6 kg Estimated body mass index is 27.21 kg/(m^2) as calculated from the following: Height as of this encounter: 178 cm (5' 10.08). Weight as of this encounter: 86.2 kg (190 lb 0.6 oz). [place] Body Weight (IBW): [place] body weight: 73.2 kg (161 lb 5.4 oz) Adjusted ideal body weight: 78.4 kg (172 lb 13.1 oz) Medications: cellcept, protonix, pericolace, sodium bicarb, tacrolimus, others noted. Lab Results Component Value Date NA 138 04/20/2018 K 4.7 04/20/2018 CL 104 04/20/2018 CO2 21 (L) 04/20/2018 BUN 33 (H) 04/20/2018 CREATININE 2.38 (H) 04/20/2018 GLUCOSE 103 04/20/2018 MAGNESIUM 0.60 (L) 04/06/2018 CALCIUM 8.0 (L) 04/20/2018 PHOS 3.3 04/06/2018 AST 22 04/06/2018 ALT 20 04/06/2018 ALKPHOS 57 04/06/2018 BILITOT 0.3 04/06/2018 BILIDIR 0.2 05/15/2017 TRIG 76 11/26/2016 I/O last 3 completed shifts: In: 2349 [P.O.:1360; I.V.:733; IV Piggyback:256] Out: 4090 [Urine:4090] I/O this shift: In: 120 [P.O.:120] Out: 275 [Urine:275] Last Bowel Movement: 04/19/18 Assessment: Pt previously ordered during stay for carb controlled diet. No history of diabetes appreciated. Pt now ordered for cardiac diet, which is appropriate. Good appetite and tolerating food fine. Ate 100%of breakfast today though this was a small meal. K+ up-trending, will monitor. Assisted pt with ordering all meals through today and tomorrow. Pt has missed meals during admit numerous times due to need for NPO for tests or procedures. Documented wt's reflective of wt loss since admit of ~5.4 kg (11 lbs). JERICHO Lombardi Beeper #: [id number] * Karis Mejia MSW - 04/20/2018 11:29 AM EDT Discharge Planning: O: Telephone call to patient's Mother Ilda who reports that she was unable to connect with her local [facility]. Unfortunately I believe that Ilda may be overwhelmed by patient's admission and events leading up to hospitalization. Ilda reports that there are repairs that need to be completed in the family home and that a staff member at [facility] (she cannot identify) has told her that patient can not return home. I offered support to Ilda and suggested that I would contact the [facility] and ask them to outreach to her. She was appreciative. Telephone call to Rachna Muro ([facility] [place] [facility] [phone]), voice mail message relaying above information. P: Await call back from Rachna, continue to liaison with Mother and offer support around discharge planning. 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 Transplant team consulted for management of post transplant CKD and immunosuppression therapy. Operations This Hospitalization 04/06: -Exploration of LUE AVF, repair of AVF, brachial artery patch angioplasty -Axillary venous phlebotomy -Forearm and hand fasciotomies ?? 04/14: 1. Sharp excisional debridement of skin, subcutaneous tissue, and muscle 2. Partial closure of open fasciotomies 3. Wound vac negative pressure therapy dressing placement ?? 04/19: Resection of prior L snuff box radiocephalic AVF, radial artery ligation S; Was feeling ok ,denied any sob or increased swellings in lower extremities,still have pain in the arm which is packed with GIANNI wrap .Maintaining good UOP and creatinine is stable. PHYSICAL EXAM: Intake/Output Summary (Last 24 hours) at 04/20/18 0919 Last data filed at 04/20/18 0606 Gross per 24 hour Intake 1003 ml Output 2340 ml Net -1337 ml Last value Range last 24 hrs Temperature Temp: 37.1 ??C (98.8 ??F) Temp: [36.4 ??C (97.5 ??F)-37.1 ??C (98.8 ??F)] Heart Rate Heart Rate: 64 Heart Rate: [63-66] Blood Pressure BP: 161/88 BP: (142-163)/(74-98) Respiratory Rate Resp: 16 Resp: [13-23] SpO2 SpO2: 96 % SpO2: [95 %-100 %] Appearance - Alert, back to his baseline. Skin - No exanthem. HEENT - Sclera white. Mucous membranes moist. Chest:. Lungs clear to ausculatation w/o wheezes/ rhonchi/ crackles. Heart - S1 and S2 clear w/o murmur, gallop, or rub. JVP not elevated. Abd - Soft. + BS. No bruit. Non tender. Ext -Left UE AVF site with dressing and also with GIANNI Wrap.Lower extremities no edema, no cyanosis.Peripheral pulses felt bilaterally and equal. Neuro - Was able to move all extremities . STUDIES: Labs: CBC: Recent Labs 04/20/1848 04/19/1862404/18/18525 WBC 7.3 5.5 6.4 HGB 7.8* 7.7* 8.0* PLATELET 302 274 305 Chemistry: Recent Labs 04/20/1854704/19/1862404/18/18525 NA 138 137 135 K 4.7 4.7 4.3 CL 104 104 104 CO2 21* 21* 20* BUN 33* 35* 36* CREATININE 2.38* 2.12* 2.30* GLUCOSE 103 100 103 Recent Labs 04/20/18 0548 04/19/18 0625 04/18/1852504/06/180 09/23/17 1101 CALCIUM 8.0* 8.0* 8.3* < > 6.7* < > 8.4* MAGNESIUM -- -- -- -- 0.60* -- 0.76 PHOS -- -- -- -- 3.3 -- 3.9 < > = values in this interval not displayed. LFT's: Recent Labs 04/06/18173909/23/17 1101 BILITOT 0.3 0.4 ALBUMIN 2.3* 4.3 ALKPHOS 57 104 ALT 20 11 AST 22 23 Re Intake/Output Summary (Last 24 hours) at 04/07/18 0851 Last data filed at 04/07/18 0800 Gross per 24 hour Intake 7448 ml Output 2450 ml Net 4998 ml Procedure:04/06/18 -Exploration of LUE AVF, repair of AVF, brachial artery patch angioplasty -Axillary venous phlebotomy -Forearm and hand fasciotomies Left KIdneySpecimen pathology:11/20 ?Specimen: ??Left radicalKidney ?Tumor ?Histologic Type: ?? 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 Histologic Type Comments: ?? Overlapping features of both Type 1 and Type 2 ?papillary RCC are present. (See Discussion) ?Histologic Grade (WHO / ISUP Grade): ?G3 ?Tumor Size: ?? 4.9 Centimeters (cm) ?Tumor Focality: ?? Multifocal ?Tumor Extent ? Anatomic Extent of Tumor: ?? Tumor limited to kidney ?Accessory Tumor Findings ? Sarcomatoid Features: ?? Not identified ? Rhabdoid Features: ?? Not identified ? Tumor Necrosis: ?? Not identified ? Lymphovascular Invasion: ?? Not identified ?Margins: ??Uninvolved by invasive carcinoma Lymph Nodes ?Regional Lymph Nodes: ?? No lymph nodes submitted or found MRI brain w/o contrast:04/07/18: Multiple areas of acute ischemia, primarily cortical, likely reflecting mild hypoxic ischemic injury. ?? 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 1.Renal transplant with CKD stage IV: -S/p DDTXP in 2002 with post transplant course complicated by delayed graft function,recurrence of IgA and prograf toxicity, been stable with CKD IV with baseline creatinine -2.3 -2.6 .He also had laparoscopic left cahto nephrectomy due to papillary renal cell ca in may-2017.Had TRISTIAN after hemorrhagic shock and cardiac arrest which was recovered now and back to his baseline kidney function and maintaining good UOP. -Will continue with current immunosuppression -prograf-1.5 mg/1mg with recent trough in therapeuticrange and Cellcept -250 BID. -Will continue with sodium bicarb for correction of non gap metabolic acidosis- likely due to chronic kidney disease. -No acute indication for DIPLOMATIC INTERPRETER ,,Strict intake and out put monitoring,Daily weights,Renal dosing for medications 2.Hypertension: Pressures are not well controlled .Was on hydralazine 50 mg BID,diltiazem 120 mg XTdaily ,metorpolol 50 mg TID,losartan 25 mg daily .Considre going up on hydralazine to TID dosing and increase losartan to 50 mg if still needed.Target pressures for him is 130-140/80-90. 3.Ruptured Left UE AVF and compartment syndrome of L Forearm: s/p exploration,brachial artery patchangioplasty,forearm and hand fasciotomies and s/p resection of prior L snuff box radiocephalic AVF and radial artery ligation. Thanks for letting us participate in the care of this patient. Call with questions. Seen and Discussed w/ I reviewed all of the above findings and assessment of Dr. Rodríguez, edited the above note to reflect my assessment and examination and formulated the recommendations which accurately reflect mine. * Tristin Marrero MD - 04/20/2018 7:50 AM EDT Vascular Surgery Progress Note Patient ID Christy Ambrose is a 57 y.o. 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 Operations This Hospitalization 04/06: -Exploration of LUE AVF, repair of AVF, brachial artery patch angioplasty -Axillary venous phlebotomy -Forearm and hand fasciotomies 04/14: 1. Sharp excisional debridement of skin, subcutaneous tissue, and muscle 2. Partial closure of open fasciotomies 3. Wound vac negative pressure therapy dressing placement 04/19: Resection of prior L snuff box radiocephalic AVF, radial artery ligation Subjective OR yesterday for L radial ligation, tissue growing GNRs Denies pain, CP, SOB, N/V this AM Objective Temp: [36.4 ??C (97.5 ??F)-37.1 ??C (98.8 ??F)] Heart Rate: [63-66] Resp: [13-23] BP: (142-163)/(74-98) SpO2: [95 %-100 %] Heart Rate from SPO2: [57 bpm-63 bpm] Body mass index is 27.21 kg/(m^2). Intake/Output Summary (Last 24 hours) at 04/20/18 0750 Last data filed at 04/20/18 0606 Gross per 24 hour Intake 1503 ml Output 2340 ml Net -837 ml Physical Exam General: alert, cooperative, NAD HEENT: normocephalic, atraumatic Heart: regular rate, and rhythm Pulmonary: non-labored breathing on room air Neuro: no focal deficits Extremities: LUE: wound vac c/d/i, good seal. Ulnar and palmar signal. Able to wiggle fingers and move wrist, 2+ edema of hand, radial incision c/d/i. Labs Last 3 wbc, hgb, hct plt Recent Labs 04/20/18 0548 04/19/18 0625 04/18/18 0526 WBC 7.3 5.5 6.4 HGB 7.8* 7.7* 8.0* HCT 23.7* 23.3* 24.6* PLATELET 302 274 305 Last 3 Lytes Recent Labs 04/20/18 0548 04/19/18 0625 04/18/18 0526 NA 138 137 135 K 4.7 4.7 4.3 CL 104 104 104 CO2 21* 21* 20* BUN 33* 35* 36* CREATININE 2.38* 2.12* 2.30* Last Ca, Mg, Phos Recent Labs 04/20/18 0548 CALCIUM 8.0* Last 3 Coags Recent Labs 04/20/18 0548 04/19/18 0625 04/18/18 0526 PT 11.6 11.5 11.2 INR 1.0 1.0 1.0 PTT 27 27 27 Microbiology Tissue culture [[id number]] (Abnormal) Collected: 04/19/18924 ? Lab Status: Preliminary result Specimen: Skin Updated: 04/19/18 1014 ? Gram Stain -- (A) ? Many Neutrophils seen Rare Gram Negative Rods seen New Studies None Assessment & Plan Christy Ginna Ambrose is a 57 y.o. male s/p brachial artery repair following ruptured AVF with subsequent cardiac arrest. Patient continues to make steady progress. LUE with large wound currently being managed with negative pressure wound VAC therapy. Granulation tissue noted to be forming well. Now s/p ligation of radial and resection of his distal forearm AVF and wound vac change. Plan for ID consult given tissue culture demonstrating GNRs. F/u cultures. Continue zosyn. Consult Plastic Surgery for assistance with tissue coverage vs STSG. Appreciate transplant nephrology in assistance of management of HTN and immunosuppressant regimen. Angelina Devries Gentry Vascular Surgery, PGY3 Pager #[phone] * Karuna Nagel, RN - 04/19/2018 10:28 AM EDT 1028- Orders received LUE elevated x 3 pillows now. * Karuna Nagel, RN - 04/19/2018 10:24 AM EDT 0955 - LUEelevated x2 pillows. * Bita Macedo RN - 04/19/2018 7:06 AM EDT 0700 Patient transported to OR holing in bed and report given to nurse * Tristin Marrero MD - 04/19/2018 6:52 AM EDT Vascular Surgery Progress Note Patient ID Christy Ambrose is a 57 y.o. 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 Operations This Hospitalization 04/06: -Exploration of LUE AVF, repair of AVF, brachial artery patch angioplasty -Axillary venous phlebotomy -Forearm and hand fasciotomies 04/14: 1. Sharp excisional debridement of skin, subcutaneous tissue, and muscle 2. Partial closure of open fasciotomies 3. Wound vac negative pressure therapy dressing placement Subjective Wound vac changed at bedside yesterday Pain controlled, denies nausea, vomiting, chest pain or shortness of breath. This AM HR 50s, will hold metoprolol and continue with his other scheduled anti- HTN meds. Pt consented and site marked on AM rounds. Objective Temp: [36.8 ??C (98.2 ??F)-37.1 ??C (98.8 ??F)] Heart Rate: -- Resp: [15-16] BP: (161-165)/(102-109) SpO2: [98 %-100 %] Heart Rate from SPO2: [56 bpm-63 bpm] Body mass index is 27.21 kg/(m^2). Intake/Output Summary (Last 24 hours) at 04/19/18 06 Last data filed at 04/19/18 0625 Gross per 24 hour Intake 1796 ml Output 3300 ml Net -1504 ml Physical Exam General: alert, cooperative, NAD HEENT: normocephalic, atraumatic Heart: regular rate, and rhythm Pulmonary: non-labored breathing on room air Neuro: no focal deficits Extremities: LUE: wound vac c/d/i, good seal. Palpable radial pulse. Able to motor intact, stable edema of hand, prior snuff box AVF aneurysmal with erythema and new dark spot on skin. Labs Last 3 wbc, hgb, hct plt Recent Labs 04/19/1862404/18/18 0526 04/17/18442 WBC 5.5 6.4 5.6 HGB 7.7* 8.0* 7.5* HCT 23.3* 24.6* 22.9* PLATELET 274 305 282 Last 3 Lytes Recent Labs 04/18/18 0526 04/17/18 0443 04/16/18 0417 NA 135 135 135 K 4.3 4.1 4.0 CL 104 104 103 CO2 20* 19* 20* BUN 36* 32* 31* CREATININE 2.30* 2.27* 2.27* Last Ca, Mg, Phos Recent Labs 04/18/18 05 CALCIUM 8.3* Last 3 Coags Recent Labs 04/19/18 0625 04/18/18 0526 04/17/18442 PT 11.5 11.2 11.7 INR 1.0 1.0 1.0 PTT 27 27 27 Microbiology None New Studies None Assessment & Plan Christy Ambrose is a 57 y.o. male s/p brachial artery repair following ruptured AVF with subsequent cardiac arrest. Patient continues to make steady progress. LUE with large wound currently being managed with negative pressure wound VAC therapy. Granulation tissue noted to be forming well, but patient will need OR today for ligation and resection of his distal forearm AVF and wound vac change. Pt will need eventual forearm STSG Appreciate transplant nephrology in assistance of management of HTN and immunosuppressant regimen. Plan for tacrolimus trough today. Angelina Marrero Vascular Surgery, PGY3 Pager #[phone] * Selma Fontanez PTA - 04/18/2018 2:14 PM EDT Physical Therapy Note Patient having bedside vac change with pain meds. Will follow up with patient tomorrow. Selma Fontanez PTA Pager# [phone] * Tristin Marrero MD - 04/18/2018 12:22 PM EDT Vascular Surgery Progress Note Patient ID Christy Ambrose is a 57 y.o. 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 Operations This Hospitalization 04/06: -Exploration of LUE AVF, repair of AVF, brachial artery patch angioplasty -Axillary venous phlebotomy -Forearm and hand fasciotomies 04/14: 1. Sharp excisional debridement of skin, subcutaneous tissue, and muscle 2. Partial closure of open fasciotomies 3. Wound vac negative pressure therapy dressing placement Subjective Pain controlled, denies nausea, vomiting, chest pain or shortness of breath. Objective Temp: [36.4 ??C (97.5 ??F)-37 ??C (98.6 ??F)] Heart Rate: [56-64] Resp: [16] BP: (156-177)/(93-113) SpO2: [96 %-100 %] Heart Rate from SPO2: [56 bpm-65 bpm] Body mass index is 27.21 kg/(m^2). Intake/Output Summary (Last 24 hours) at 04/18/18 1222 Last data filed at 04/18/18 1117 Gross per 24 hour Intake 1000.5 ml Output 2975 ml Net -1974.5 ml Physical Exam General: alert, cooperative, NAD HEENT: normocephalic, atraumatic Neck: trachea midline Heart: regular rate Pulmonary: non-labored breathing Abdomen: soft, non tender, non distended Neuro: no focal deficits Extremities: LUE: wound vac c/d/i, good seal. Palpable radial pulse. Able to wiggle fingers and move wrist, 2+ edema of hand Labs Last 3 wbc, hgb, hct plt Recent Labs 04/18/18 0526 04/17/18 0443 04/16/18 0417 WBC 6.4 5.6 5.2 HGB 8.0* 7.5* 7.9* HCT 24.6* 22.9* 24.9* PLATELET 305 282 288 Last 3 Lytes Recent Labs 04/18/18 0526 04/17/18 0443 04/16/18 0417 NA 135 135 135 K 4.3 4.1 4.0 CL 104 104 103 CO2 20* 19* 20* BUN 36* 32* 31* CREATININE 2.30* 2.27* 2.27* Last Ca, Mg, Phos Recent Labs 04/18/18 0526 CALCIUM 8.3* Last 3 Coags Recent Labs 04/18/18 0526 04/17/18 0443 04/16/18 0417 PT 11.2 11.7 11.5 INR 1.0 1.0 1.0 PTT 27 27 27 Microbiology None New Studies None Assessment & Plan Christy Ambrose is a 57 y.o. male s/p brachial artery repair following ruptured AVF with subsequent cardiac arrest. Patient continues to make steady progress. LUE with large wound currently being managed with negative pressure wound VAC therapy. Granulation tissue noted to be forming well. Plan for bedside vac change today with wound evaluation. Suspect defect will require ongoing VAC therapy and skin grafting for closure. Appreciate transplant nephrology in assistance of management of HTN and immunosuppressant regimen. Plan for tacrolimus trough tomorrow AM. -Will continue with immunosuppression -prograf-1.5 mg morning and 1mg evening and Cellcept -250 BID Angelina jensen [phone] 04/18/2018 12:22 PM * Karine Carroll RN - 04/18/2018 5:42 AM EDT - Christy Ambrose denies symptoms of SOB, dizziness, chest pain, numbness or tingling - Please see tele strip in chart - Pt tolerating current rate and rhythm, williams at times especially during sleep - Continue to monitor on telemetry as ordered Karine Carroll RN 04/18/2018 * Tim Ogden MD - 04/17/2018 8:51 AM EDT INPATIENT DAILY PROGRESS NOTE Patient Name: Christy Ambrose Patient Age: 57 y.o. Birthdate: 1960 Admit date: 04/06/2018 Attending Physician: Chase Olvera MD ID: Christy Ambrose is a 57 y.o. male w/ renal transplant presented with massive bleeding from ruptured LUE mycotic AVF aneurysm s/p exploration, repair of AVF with patch angioplasty and forarm and hand fasciotomies. 24hr events: Christy states that he did well overnight. No acute events. Wound vac dressing Wednesday O: Last value Range last 24hrs Temperature Temp: 37.1 ??C (98.8 ??F) Temp: [36.5 ??C (97.7 ??F)-37.1 ??C (98.8 ??F)] Heart Rate Heart Rate: 64 Heart Rate: -- Blood Pressure BP: (!) 152/95 BP: (137-205)/(83-119) Respiratory Rate Resp: 15 Resp: [15-18] SpO2 SpO2: 99 % SpO2: [97 %-99 %] 04/16 701 - 04/17 700 In: 3618.8 [P.O.:1910; I.V.:183.8] Out: 2200 [Urine:2200] Physical Exam: General: NAD HEENT: normocephalic, anicteric sclerae CVS: RRR Pulm: breathing comfortably Abd: soft, non-tender, non-distended. Skin: warm, dry Ext: LUE wound vac c/d/i and sealed to suction. Pos radial pulse signal. Good capillary refill. Able to wiggle fingers and move wrist Wound base clean. Neuro: Grossly intact, nonfocal. Recent Labs 04/17/1844204/16/1841604/15/1845604/15/18446 WBC 5.6 5.2 -- 5.0 HGB 7.5* 7.9* -- 7.5* HCT 22.9* 24.9* -- 23.3* PLATELET 282 288 -- 224 PT 11.7 11.5 12.9* -- INR 1.0 1.0 1.2 -- PTT 27 27 27 -- Recent Labs 04/17/1844218 0417 04/15/18 0447 NA 135 135 138 K 4.1 4.0 4.6 CL 104 103 105 CO2 19* 20* 20* BUN 32* 31* 30* CREATININE 2.27* 2.27* 2.17* GLUCOSE 100 108 105 CALCIUM 7.7* 7.7* 7.6* ASSESSMENT: Christy Ambrose is a 57 y.o. male w/ renal transplant presented with massive bleeding andPEA arrest on 04/06 from ruptured LUE mycotic AVF aneurysm s/p exploration, repair of AVF with patchangioplasty and forarm and hand fasciotomies. Open wounds of the forearm and hand appear clean withno drainage or surrounding erythema. The patient has a palpable radial pulse. Patient OR yesterday for washout, wound vac placement and partial closure of LUE fasciotomies. Appreciate Transplant recs - home losartan 25 mg started 04/15 per Transplant recommendations for better BP control. PLAN: - Bedside wound vac change Wednesday -Will continue with immunosuppression -prograf-1.5 mg morning and 1mg evening and Cellcept -250 BID,no interaction with kepra -Check Mg and phos levels and need repletion -Need to continue with sodium bicarb for correction of non gap metabolic acidosis-likely due to chronic kidney disease. - No acute indication for DIPLOMATIC INTERPRETER, Strict intake and out put monitoring, Daily weights, Renal dosing for medications - Hypertension: was on hydralazine 50 mg BID,diltiazem 120 mg XT daily ,metorpolol 50 mg TID, losartan 25 mg daily at home. Will add losartan today. - discontinue IVF - reg diet, but NPO at midnight for OR Wednesday Tim Ogden MD * Negrita French RN - 04/16/2018 8:34 PM EDT Pt had a good day, VSS, AOx3 disoriented to situation but is easily redirected. Wound vac intact and juan pad reinforced. Pt denies CP, SOB, and pain. Voiding adequately, oob to toilet. -BM. Tolerating regular diet. Encouraging ambulation, IS and appropriate use of call daniels. * Tim Ogden MD - 04/16/2018 9:21 AM EDT INPATIENT DAILY PROGRESS NOTE Patient Name: Christy Ambrose Patient Age: 57 y.o. Birthdate: 1960 Admit date: 04/06/2018 Attending Physician: Chase Olvera MD ID: Christy Ambrose is a 57 y.o. male w/ renal transplant presented with massive bleeding from ruptured LUE mycotic AVF aneurysm s/p exploration, repair of AVF with patch angioplasty and forarm and hand fasciotomies. 24hr events: Christy states that he did well overnight. No acute events. Wound vac dressing yesterday. Next change will be Wednesday Transplant recommendations for adding losartan back into medication regiment for better BP control. O: Last value Range last 24hrs Temperature Temp: 36.8 ??C (98.2 ??F) Temp: [36.5 ??C (97.7 ??F)-36.9 ??C (98.4 ??F)] Heart Rate Heart Rate: 64 Heart Rate: -- Blood Pressure BP: (!) 205/119 BP: (142-213)/(81-129) Respiratory Rate Resp: 16 Resp: [15-17] SpO2 SpO2: 97 % SpO2: [95 %-99 %] 04/15 0701 - 04/16 0700 In: 2131.5 [P.O.:840; I.V.:1237.5] Out: 350 [Urine:300] Physical Exam: General: NAD HEENT: normocephalic, anicteric sclerae CVS: RRR Pulm: breathing comfortably Abd: soft, non-tender, non-distended. Skin: warm, dry Ext: LUE wound vac c/d/i and sealed to suction. Pos radial pulse signal. Good capillary refill. Able to wiggle fingers and move wrist Wound base clean. Neuro: Grossly intact, nonfocal. Recent Labs 04/16/1841604/15/1845604/15/1844604/14/18547 WBC 5.2 -- 5.0 5.4 HGB 7.9* -- 7.5* 7.5* HCT 24.9* -- 23.3* 22.9* PLATELET 288 -- 224 208 PT 11.5 12.9* -- 15.1* INR 1.0 1.2 -- 1.4 PTT 27 27 -- 28 Recent Labs 04/16/1841604/15/1844604/14/18547 NA 135 138 138 K 4.0 4.6 4.1 CL 103 105 106 CO2 20* 20* 20* BUN 31* 30* 32* CREATININE 2.27* 2.17* 2.38* GLUCOSE 108 105 110 CALCIUM 7.7* 7.6* 7.6* ASSESSMENT: Christy Ambrose is a 57 y.o. male w/ renal transplant presented with massive bleeding andPEA arrest on 04/06 from ruptured LUE mycotic AVF aneurysm s/p exploration, repair of AVF with patchangioplasty and forarm and hand fasciotomies. Open wounds of the forearm and hand appear clean withno drainage or surrounding erythema. The patient has a palpable radial pulse. Patient OR yesterday for washout, wound vac placement and partial closure of LUE fasciotomies. Appreciate Transplant recs - home losartan 25 mg started yesterday per Transplant recommendations for better BP control. PLAN: - Bedside wound vac change today Wednesday - continue home losartan 25 mg for better BP control. -Will continue with immunosuppression -prograf-1.5 mg morning and 1mg evening and Cellcept -250 BID,no interaction with kepra -Check Mg and phos levels and need repletion -Need to continue with sodium bicarb for correction of non gap metabolic acidosis-likely due to chronic kidney disease. - No acute indication for DIPLOMATIC INTERPRETER, Strict intake and out put monitoring, Daily weights, Renal dosing for medications - Hypertension: was on hydralazine 50 mg BID,diltiazem 120 mg XT daily ,metorpolol 50 mg TID, losartan 25 mg daily at home. Will add losartan today. - discontinue IVF - reg diet Tim Ogden MD * Karine Carroll, RN - 04/16/2018 5:28 AM EDT - Christy Ambrose denies symptoms SOB, dizziness, chest pain - Please see tele strip in chart - Pt tolerating current rate and rhythm, PT williams during sleep, notified once overnight for HR in the high 40's - Continue to monitor on telemetry as ordered Karine Carroll RN 04/16/2018 * Tana Bennett LD - 04/15/2018 10:28 AM EDT Clinical Nutrition Initial Evaluation Christy Ambrose is a 57 y.o. male Nutrition Plan/Recommendations: Continue regular diet Encourage good po intake and offer snacks Snacks and liquid nutrition supplement drinks offered to optimize PO's. Patient declined at this time. Monitor weight - please weigh pt twice weekly (Wednesday/) Patient Active Problem List Diagnosis Code ??? Epilepsy G40.909 ??? End stage renal disease N18.6 ??? Gout M10.9 ??? Hypertension I10 ??? Left leg DVT I82.402 ??? Kidney replaced by transplant Z94.0 ??? IgA nephropathy N02.8 ??? BCC (basal cell carcinoma of skin) C44.91 ??? Acne rosacea L71.9 ??? Nevus D22.9 ??? Rosacea L71.9 ??? Anticoagulated on Coumadin [...] ml/min N18.4 ??? 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 alf current use of immunosuppressive drug Z79.899 ??? H/O kidney transplant Z94.0 ??? TRISTIAN (acute kidney injury) N17.9 ??? Weight loss R63.4 ??? Gastrointestinal hemorrhage K92.2 ??? Bradycardia R00.1 ??? Left renal mass N28.89 ??? Renal mass N28.89 ??? 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 Hemorrhagic shock R57.8 Past Surgical History: Procedure Laterality Date ??? CREATED BY INTERFACE Entered not Verified Procedure Date: 09/19/2010 ??? KIDNEY TRANSPLANT KIDNEY TRANSPLANT / RECIPIENT/LT Procedure Date: 11/26/2002 ? ? PRO DEBRIDEMENT SUBCUTANEOUS TISSUE 20 SQCM/< Left 02/20/2016 DEBRIDEMENT SKIN AND SUBCU, HEAD/NECK performed by Miguel Angel Moreno MD at [facility] OR ??? PRO DECOMPRESS FOREARM, BRACH ART EXPLOR Left 04/06/2018 FASCIOTOMY, FOREARM, WITH BRACHIAL ARTERY EXPLORATION (WRVU 8.41) performed by Lida Peter MDat [facility] OR ??? PRO DIRECT REPAIR RUPTURED ANEURYSM, AXILLO-BRACHIAL ARM INCIS Left 04/06/2018 @REPAIR, RUPTURED AXILLARY OR BRACHIAL ARTERY ANEURYSM BY ARM INCISION (WRVU *) performed by Lida Peter MD at [facility] OR ??? PRO EXC PAROTD, TOTAL, UNILAT RAD NECK Left 02/05/2016 @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, TOTAL, WITH UNILATERAL RADICAL NECK DISSECTION performed by Miguel Angel Moreno MD at [facility] OR ??? PRO EXC SKIN MALIG 3.1-4CM FACE, FACIAL Left 02/05/2016 EXC MALIGNANT LESION, 3.1 TO 4.0CM, FACE performed by Miguel Angel Moreno MD at [facility] OR ? ? PRO EXC SKIN MALIG >4CM TRUNK, ARM, LEG 04/19/2012 EXC MALIGNANT LESION, MICHAEL > 4.0CM, TRUNK performed by SABRINA MEDRANO at [facility] MAIN OR ??? PRO LAP, RADICAL NEPHRECTOMY Left 05/31/2017 @LAPAROSCOPY, RADICAL NEPHRECTOMY (WRVU 25.06) performed by Jax Mills MD at [facility] MAIN OR ??? PRO REBL VES GRAFT, UP EXTREM Left 04/06/2018 REPAIR BLOOD VESSEL WITH GRAFT OTHER THAN VEIN, UPPER EXTREMITY (WRVU 15.83) performed by Lida Peter MD at [facility] MAIN OR ??? PRO RELIEVE PRESSURE ON NERVE(S) Left 04/06/2018 (MSURG) CARPAL TUNNEL (WRVU 4.82) performed by Hay Sparks MD at [facility] MAIN OR ??? PRO REPAIR INTERMEDIATE S/A/T/E 2.6-7.5 CM 04/19/2012 REPAIR INTERMEDIATE WOUND, (NO HANDS OR FEET) 2.6 TO 7.5CM, UPPER EXTREMITY performed by SABRINA MEDRANO at [facility] MAIN OR ? ? PRO REPAIR INTERMEDIATE S/A/T/E > 30.0 CM Left 04/14/2018 REPAIR INTERMEDIATE WOUND, (NO HANDS OR FEET) >30.0CM, UPPER EXTREMITY (WRVU 5) performed by Yimi Easton MD at [facility] MAIN OR ??? PRO REVISE MEDIAN N/CARPAL TUNNEL SURG Left 04/06/2018 MEDIAN NERVE DECOMPRESSION (CARPAL TUNNEL RELEASE) (WRVU 4.97) performed by [facility] MA[facility] OR ? ? PRO SPLIT GRFT, HEAD, FAC, HAND, FEET <100SQCM N/A 02/20/2016 SPLIT THICKNESS SKIN SPLIT GRAFT,100SQ CM OR LESS, NECK performed by Miguel Angel Moreno MD at [facility] MAIN OR ??? PRO UPPER GI ENDOSCOPY, BIOPSY N/A 05/13/2017 EGD WITH BIOPSY (WRVU 2.49) performed by Aditya Barrera MD at [facility] ENDOSCOPY ??? PRO VASCULAR SURGERY PROCEDURE UNLIST Left 11/20/2015 LIGATION\REPAIR AV FISTULA performed by Camilo Ireland MD at [facility] MAIN OR ??? PRO VASCULAR SURGERY PROCEDURE UNLIST Left 11/20/2015 EXCISION VEIN FROM HAND performed by Camilo Ireland MD at [facility] MAIN OR ??? US RENAL TRANSPLANT BIOPSY 12/31/2010 Reason for Nutrition Intervention: Initial assessment Diet Order: Regular Appetite: Good Food allergies: None documented Chewing/Swallowing difficulty: none, cleared for regular diet and thin liquids per FURNITURE MAKER Estimated body mass index is 28.91 kg/(m^2) as calculated from the following: Height as of this encounter: 178 cm (5' 10.08). Weight as of this encounter: 91.6 kg (201 lb 15.1 oz). Admit weight: 91.6 kg Pert. Meds: synthroid, metoprolol, protonix, laxatives, zofran, others noted Lab Results Component Value Date WBC 5.0 04/15/2018 HGB 7.5 (L) 04/15/2018 HCT 23.3 (L) 04/15/2018 TRIG 76 11/26/2016 HDL 22 (L) 11/26/2016 ALT 20 04/06/2018 AST 22 04/06/2018 NA 138 04/15/2018 K 4.6 04/15/2018 CL 105 04/15/2018 CREATININE 2.17 (H) 04/15/2018 BUN 30 (H) 04/15/2018 CO2 20 (L) 04/15/2018 TSH 3.21 05/12/2017 INR 1.2 04/15/2018 CALCIUM 7.6 (L) 04/15/2018 MAGNESIUM 0.60 (L) 04/06/2018 PHOS 3.3 04/06/2018 Pt Interview: Patient admitted after being found down at his home with bleeding from L AVF. He noted leaking from his AVF. EMS found patient unresponsive in a pool of blood. Subsequently had PEA arrest at home, s/p ROSC with several rounds of CPR and 1 dose epi. Intubated in field. Now extubated and being worked up for possible intracranial event. FURNITURE MAKER cleared patient for regular diet and thin liquids. Patient has been tolerating this well, but per RN this morning he did not eat d/t nausea. Thiscould be attributed to pain meds on empty stomach. FURNITURE MAKER and OT in with patient at time of attempt this morning, will check back in afternoon. Patient seen this afternoon having eaten ~50% of his lunch, appeared to still be eating as well. Hehas difficulty recalling his diet SE[employer] ENGINE [employer]ATION [employer]IST. He is not sure if he has food allergies, none are documentedin [facility]. He states he plans on ordering dinner tonight. Encourage PO intake, offer snacks. Nutrition will check in next week if he is still admitted. JERICHO Jha * Tim Ogden MD - 04/15/2018 10:13 AM EDT INPATIENT DAILY PROGRESS NOTE Patient Name: Christy Ambrose Patient Age: 57 y.o. Birthdate: 1960 Admit date: 04/06/2018 Attending Physician: Chase Olvera MD ID: Christy Ambrose is a 57 y.o. male w/ renal transplant presented with massive bleeding from ruptured LUE mycotic AVF aneurysm s/p exploration, repair of AVF with patch angioplasty and forarm and hand fasciotomies. 24hr events: Christy states that he did well overnight. Wound vac dressing c/d/i this morning on rounds. Elevated blood pressure overnight. Will add home losartan 25 mg today per Transplant recommendations for better BP control. O: Last value Range last 24hrs Temperature Temp: 36.5 ??C (97.7 ??F) Temp: [36.5 ??C (97.7 ??F)-37.1 ??C (98.8 ??F)] Heart Rate Heart Rate: 64 Heart Rate: -- Blood Pressure BP: 150/87 BP: (149-189)/(85-114) Respiratory Rate Resp: 16 Resp: [16-19] SpO2 SpO2: 98 % SpO2: [94 %-100 %] 04/14 0701 - 04/15 0700 In: 2540.8 [P.O.:680; I.V.:1709.8] Out: 1225 [Urine:1225] Physical Exam: General: NAD HEENT: normocephalic, anicteric sclerae CVS: RRR Pulm: breathing comfortably Abd: soft, non-tender, non-distended. Skin: warm, dry Ext: LUE wound vac c/d/i and sealed to suction. Pos radial pulse signal. Good capillary refill. Able to wiggle fingers and move wrist Wound base clean. Neuro: Grossly intact, nonfocal. Recent Labs 04/15/1845604/15/1844604/14/1848 04/13/18 0814 WBC -- 5.0 5.4 5.3 HGB -- 7.5* 7.5* 7.8* HCT -- 23.3* 22.9* 23.3* PLATELET -- 224 208 190 PT 12.9* -- 15.1* 17.3* INR 1.2 -- 1.4 1.6 PTT 27 -- 28 29 Recent Labs 04/15/1844604/14/1848 04/13/1814 NA 138 138 138 K 4.6 4.1 4.5 CL 105 106 104 CO2 20* 20* 20* BUN 30* 32* 30* CREATININE 2.17* 2.38* 2.28* GLUCOSE 105 110 108 CALCIUM 7.6* 7.6* 7.7* ASSESSMENT: Christy Ambrose is a 57 y.o. male w/ renal transplant presented with massive bleeding andPEA arrest on 04/06 from ruptured LUE mycotic AVF aneurysm s/p exploration, repair of AVF with patchangioplasty and forarm and hand fasciotomies. Open wounds of the forearm and hand appear clean withno drainage or surrounding erythema. The patient has a palpable radial pulse. Patient OR yesterday for washout, wound vac placement and partial closure of LUE fasciotomies. Appreciate Transplant recs - will add home losartan 25 mg today per Transplant recommendations for better BP control. PLAN: - Bedside wound vac change today (04/15) - add home losartan 25 mg for better BP control. -Will continue with immunosuppression -prograf-1.5 mg morning and 1mg evening and Cellcept -250 BID,no interaction with kepra -Check Mg and phos levels and need repletion -Need to continue with sodium bicarb for correction of non gap metabolic acidosis-likely due to chronic kidney disease. - No acute indication for DIPLOMATIC INTERPRETER, Strict intake and out put monitoring, Daily weights, Renal dosing for medications - Hypertension: was on hydralazine 50 mg BID,diltiazem 120 mg XT daily ,metorpolol 50 mg TID, losartan 25 mg daily at home. Will add losartan today. Tim Ogden MD * Inder Miller RN - 04/14/2018 4:27 PM EDT S:No chest pain O:Confused as baseline. A:Tolerating tele rhythms, Sinus Williams P:Continue on tele monitoring. * Tim Ogden MD - 04/14/2018 10:31 AM EDT INPATIENT DAILY PROGRESS NOTE Patient Name: Christy Ambrose Patient Age: 57 y.o. Birthdate: 1960 Admit date: 04/06/2018 Attending Physician: Chase Olvera MD ID: Christy Ambrose is a 57 y.o. male w/ renal transplant presented with massive bleeding from ruptured LUE mycotic AVF aneurysm s/p exploration, repair of AVF with patch angioplasty and forarm and hand fasciotomies. 24hr events: Christy continues to have good spirits and is happy to be scheduled for OR today. Dressing c/d/i this morning on rounds. Open fasciotomies of forearm and hand with clean appearing wound base w/plan for OR today for closure pending scheduling. O: Last value Range last 24hrs Temperature Temp: 36.8 ??C (98.2 ??F) Temp: [36.3 ??C (97.3 ??F)-36.8 ??C (98.2 ??F)] Heart Rate Heart Rate: 64 Heart Rate: [54-64] Blood Pressure BP: (!) 152/98 BP: (109-190)/(61-108) Respiratory Rate Resp: 16 Resp: [12-18] SpO2 SpO2: 94 % SpO2: [93 %-99 %] 04/13 701 - 04/14 07 In: 1454 [P.O.:560; I.V.:737] Out: 1825 [Urine:1825] Physical Exam: General: NAD HEENT: normocephalic, anicteric sclerae CVS: RRR Pulm: breathing comfortably Abd: soft, non-tender, non-distended. Skin: warm, dry Ext: LUE GIANNI dressing c/d/i (minimal serous drainage proximal aspect dressing). Pos radial pulse signal. Good capillary refill. Able to wiggle fingers and move wrist . Wound base clean. Neuro: Grossly intact, nonfocal. Recent Labs 04/14/18 0548 04/13/18 0814 04/12/18 0840 WBC 5.4 5.3 5.0 HGB 7.5* 7.8* 7.9* HCT 22.9* 23.3* 24.0* PLATELET 208 190 183 PT 15.1* 17.3* 20.0* INR 1.4 1.6 1.8 PTT 28 29 32 Recent Labs 04/14/18 0548 04/13/18 0814 04/12/18 0840 NA 138 138 140 K 4.1 4.5 4.4 CL 106 104 106 CO2 20* 20* 20* BUN 32* 30* 31* CREATININE 2.38* 2.28* 2.35* GLUCOSE 110 108 113 CALCIUM 7.6* 7.7* 7.4* ASSESSMENT: Christy Ambrose is a 57 y.o. male w/ renal transplant presented with massive bleeding andPEA arrest on 04/06 from ruptured LUE mycotic AVF aneurysm s/p exploration, repair of AVF with patchangioplasty and forarm and hand fasciotomies. Open wounds of the forearm and hand appear clean withno drainage or surrounding erythema. The patient has a palpable radial pulse. Patient scheduled for OR today for closure of LUE fasciotomies and/or wound vac placement. We will continue with daily dressing changes. Appreciate Transplant recs. PLAN: - Plan for return to OR today 04/14 for washout, debridement, wound vac placement and partial closure - NPO for OR - Daily dressing change by Vascular Surgery - Per Transplant (appreciate recs): pt s/p Renal transplant with CKD stage IV: will eval Tacrolimuslevel this AM and adjust dose accordingly - Repeat UA with Urine protein/creatinine ratio. -Will continue with immunosuppression -prograf-1.5 mg morning and 1mg evening and Cellcept -250 BID,no interaction with kepra -Check Mg and phos levels and need repletion -Need to continue with sodium bicarb for correction of non gap metabolic acidosis-likely due to chronic kidney disease. - No acute indication for DIPLOMATIC INTERPRETER, Strict intake and out put monitoring, Daily weights, Renal dosing for medications - Hypertension: was on hydralazine 50 mg BID,diltiazem 120 mg XT daily ,metorpolol 50 mg TID,losartan 25 mg daily at home.Will recommend to restart his home meds and continue holding losartan in the setting of TRISTIAN. Tim Ogden MD * Karis Mejia MSW - 04/13/2018 1:17 PM EDT O: Requested by CANDY to continue to communicate with Mother re discharge planning. Federal Appellate Clerk spoke with Mother today who is glad to hear that patient is progressing. Mother has an appointment on 04/15/18 with the [facility] to discuss [place] [facility]. She also had questions about filing for SSDI for patient. Federal Appellate Clerk suggested that she contact with [place] officeand make an appointment to speak with someone there. Federal Appellate Clerk also indicated that Mother should take along supportive friend as there can be a lot of information to digest and understand. A: Mother remains pleasant and actively engaged in treatment planning for patient. She is hopeful that he will be able to complete his rehab stay at [facility] but understands that he may need to go farther from home. P: Will continue to follow with team, liaison with Mother. Available to assist as needed/requested. 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 Transplant team consulted for management of post transplant CKD and immunosuppression therapy. S: Was feeling good,denied any sob/swellings .Have UOP -1.6 lts in last 24 hrs and creatinine 2.28 mg/dl.Vascular planning surgical closure today .Pressures are still an issue so far. PHYSICAL EXAM: Intake/Output Summary (Last 24 hours) at 04/13/18 1304 Last data filed at 04/13/18 1255 Gross per 24 hour Intake 677 ml Output 1600 ml Net -923 ml Last value Range last 24 hrs Temperature Temp: 36.7 ??C (98.1 ??F) Temp: [36.6 ??C (97.9 ??F)-37.2 ??C (99 ??F)] Heart Rate Heart Rate: 74 Heart Rate: [74] Blood Pressure BP: (!) 161/103 BP: (146-195)/(99-112) Respiratory Rate Resp: 16 Resp: [16-20] SpO2 SpO2: 97 % SpO2: [96 %-98 %] Appearance - Alert, back to his baseline. Skin - No exanthem. HEENT - Sclera white. Mucous membranes moist. Chest:. Lungs clear to ausculatation w/o wheezes/ rhonchi/ crackles. Heart - S1 and S2 clear w/o murmur, gallop, or rub. JVP not elevated. Abd - Soft. + BS. No bruit. Non tender. Ext -Left UE AVF site with dressing and also with GIANNI Wrap.Lower extremities no edema, no cyanosis.Peripheral pulses felt bilaterally and equal. Neuro - Was able to move all extremities . STUDIES: Labs: CBC: Recent Labs 04/13/18 0814 04/12/18 0840 04/11/18 0555 WBC 5.3 5.0 5.7 HGB 7.8* 7.9* 7.4* PLATELET 190 183 150 Chemistry: Recent Labs 04/13/18 0814 04/12/18 0840 04/11/18 0555 NA 138 140 144 K 4.5 4.4 4.5 CL 104 106 110* CO2 20* 20* 22 BUN 30* 31* 33* CREATININE 2.28* 2.35* 2.33* GLUCOSE 108 113 112 Recent Labs 04/13/18 0814 04/12/18 0840 04/11/18 0555 04/06/18 1740 09/23/17 1101 06/28/17 0859 CALCIUM 7.7* 7.4* 7.3* < > 6.7* < > 8.4* 8.4* MAGNESIUM -- -- -- -- 0.60* -- 0.76 0.82 PHOS -- -- -- -- 3.3 -- 3.9 4.4 < > = values in this interval not displayed. LFT's: Recent Labs 04/06/18 1740 09/23/17 1101 06/28/17 0859 BILITOT 0.3 0.4 0.3 ALBUMIN 2.3* 4.3 4.2 ALKPHOS 57 104 116 ALT 20 11 11 AST 22 23 19 Re Intake/Output Summary (Last 24 hours) at 04/07/18 0851 Last data filed at 04/07/18 0800 Gross per 24 hour Intake 7448 ml Output 2450 ml Net 4998 ml Procedure:04/06/18 -Exploration of LUE AVF, repair of AVF, brachial artery patch angioplasty -Axillary venous phlebotomy -Forearm and hand fasciotomies Left KIdneySpecimen pathology:05/31 ?Specimen: ??Left radicalKidney ?Tumor ?Histologic Type: ?? 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 Histologic Type Comments: ?? Overlapping features of both Type 1 and Type 2 ?papillary RCC are present. (See Discussion) ?Histologic Grade (WHO / ISUP Grade): ?G3 ?Tumor Size: ?? 4.9 Centimeters (cm) ?Tumor Focality: ?? Multifocal ?Tumor Extent ? Anatomic Extent of Tumor: ?? Tumor limited to kidney ?Accessory Tumor Findings ? Sarcomatoid Features: ?? Not identified ? Rhabdoid Features: ?? Not identified ? Tumor Necrosis: ?? Not identified ? Lymphovascular Invasion: ?? Not identified ?Margins: ??Uninvolved by invasive carcinoma Lymph Nodes ?Regional Lymph Nodes: ?? No lymph nodes submitted or found MRI brain w/o contrast:04/07/18: Multiple areas of acute ischemia, primarily cortical, likely reflecting mild hypoxic ischemic injury. ?? 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 -ESRD sec to IgA nephropathy -Had TRISTIAN after hemorrhagic shock and cardiac arrest which was recovered now and back to his baseline kidney function and maintaining good UOP -Will continue with current immunosuppression -prograf-1 mg BID and Cellcept - 250 BID,no interaction with kepra -Will increase prograf to 1.5 mg/1 mg as trough levels are<2 -Need to continue with sodium bicarb for correction of non gap metabolic acidosis-likely due to chronic kidney disease. -No acute indication for DIPLOMATIC INTERPRETER ,,Strict intake and out put monitoring,Daily weights,Renal dosing for medications 2.Hypertension: Pressures are not well controlled ,will add losartan 25 mg to help in pressure control as it is on hold currently.Was on hydralazine 50 mg BID,diltiazem 120 mg XT daily ,metorpolol 50mg TID,losartan 25 mg daily at home. 3.Ruptured Left UE AVF and compartment syndrome of L Forearm: s/p exploration,brachial artery patchangioplasty,forearm and hand fasciotomies on 04/06/18.Vascular planning for washout and possible closure today Thanks for letting us participate in the care of this patient. Call with questions. Seen and Discussed w/ I reviewed all of the above findings and assessment of Dr. Meade, edited the above note to reflect my assessment and examination and formulated the recommendations which accurately reflect mine. * Tim Ogden MD - 04/13/2018 10:01 AM EDT INPATIENT DAILY PROGRESS NOTE Patient Name: Christy Ambrose Patient Age: 57 y.o. Birthdate: 1960 Admit date: 04/06/2018 Attending Physician: Chase Olvera MD ID: Christy Ambrose is a 57 y.o. male w/ renal transplant presented with massive bleeding from ruptured LUE mycotic AVF aneurysm s/p exploration, repair of AVF with patch angioplasty and forarm and hand fasciotomies. 24hr events: Reports that he is doing well with pain and movement. In good spirits despite getting OR case pended. Dressing change at bedside (well tolerated by pt). Open fasciotomies of forearm and hand with clean appearing wound base w/plan for OR today for closure pending scheduling. O: Last value Range last 24hrs Temperature Temp: 36.6 ??C (97.9 ??F) Temp: [36.6 ??C (97.9 ??F)-36.9 ??C (98.4 ??F)] Heart Rate Heart Rate: 74 Heart Rate: [74] Blood Pressure BP: (!) 176/104 BP: (146-179)/(99-104) Respiratory Rate Resp: 18 Resp: [16-20] SpO2 SpO2: 98 % SpO2: [96 %-98 %] 04/12 0701 - 04/13 0700 In: 610 [P.O.:560] Out: 1200 [Urine:1200] Physical Exam: General: NAD HEENT: normocephalic, anicteric sclerae CVS: RRR Pulm: breathing comfortably Abd: soft, non-tender, non-distended. Skin: warm, dry Ext: LUE dressing taken down, fasciotomy sites appear clean and dry. Pos radial pulse signal. Good capillary refill. Able to wiggle fingers and move wrist . Wound base clean. Neuro: Grossly intact, nonfocal. Recent Labs 04/13/18 0814 04/12/18 0840 04/11/18 0555 WBC 5.3 5.0 5.7 HGB 7.8* 7.9* 7.4* HCT 23.3* 24.0* 22.2* PLATELET 190 183 150 PT 17.3* 20.0* 26.8* INR 1.6 1.8 2.4 PTT 29 32 37 Recent Labs 04/13/18 0814 04/12/18 0840 04/11/18 0555 NA 138 140 144 K 4.5 4.4 4.5 CL 104 106 110* CO2 20* 20* 22 BUN 30* 31* 33* CREATININE 2.28* 2.35* 2.33* GLUCOSE 108 113 112 CALCIUM 7.7* 7.4* 7.3* ASSESSMENT: Christy Ambrose is a 57 y.o. male w/ renal transplant presented with massive bleeding andPEA arrest on 04/06 from ruptured LUE mycotic AVF aneurysm s/p exploration, repair of AVF with patchangioplasty and forarm and hand fasciotomies. Open wounds of the forearm and hand appear clean withno drainage or surrounding erythema. The patient has a palpable radial pulse. Patient planned for OR today for closure of LUE fasciotomies. Patient at this point appears much improved. We will continue with daily dressing changes. Appreciate Transplant recs. PLAN: - Plan for return to OR today 04/13 for washout, debridement, and partial closure based on OR schedule - NPO for OR, maintenance IVF LR 75cc/hr - Daily dressing change by Vascular Surgery - Per Transplant (appreciate recs): pt s/p Renal transplant with CKD stage IV: will eval Tacrolimuslevel this AM and adjust dose accordingly - Repeat UA with Urine protein/creatinine ratio. -Will continue with current immunosuppression -prograf-1 mg BID and Cellcept - 250 BID,no interaction with kepra and -Check prograf trough dose in morning before morning dose -Check Mg and phos levels and need repletion -Need to continue with sodium bicarb for correction of non gap metabolic acidosis-likely due to chronic kidney disease. - No acute indication for DIPLOMATIC INTERPRETER, Strict intake and out put monitoring, Daily weights, Renal dosing for medications - Hypertension: was on hydralazine 50 mg BID,diltiazem 120 mg XT daily ,metorpolol 50 mg TID,losartan 25 mg daily at home.Will recommend to restart his home meds and continue holding losartan in the setting of TRISTIAN. Tim Ogden MD * Ajay Alexandre - 04/12/2018 2:08 PM EDT Physician Coder Encounter Note Patient Name: Christy Ambrose : [id number] MR#: [id number] Admit Date: 04/06/2018 12:58 PM Hospital Day 6 days Narrative: Seen on director of sales support Rounds. Sitting in recliner. Cordial. Expression bemused, almost worried. Mentionshis past history involving coma from head injury. Speaks of broad problems (gun control, ecology, societal shortcomings) using complex vocabulary and with persistently pensive expression, speaking with some urgency, and usually ending thought-train with an generalized admonition directed at himself.himself. Does not focus his generalized worry internally or reflect on concerns about himself or his medical condition. Assessment: Limited ability to focus sense of worry on specific internal/personal issues but manner suggests that there are important existential concerns unexpressed. Intervention and Outcome: Active listening and supportive conversation. Patient seemed more relaxed with lightening of mood following our conversation. Follow-up: None palnned Time in Direct Care: 30 min Ajay Alexandre 04/12/2018 * Tim Ogden MD - 04/12/2018 9:52 AM EDT INPATIENT DAILY PROGRESS NOTE Patient Name: Christy Ambrose Patient Age: 57 y.o. Birthdate: 1960 Admit date: 04/06/2018 Attending Physician: Chase Olvera MD ID: Christy Ambrose is a 57 y.o. male w/ renal transplant presented with massive bleeding from ruptured LUE mycotic AVF aneurysm s/p exploration, repair of AVF with patch angioplasty and forarm and hand fasciotomies. 24hr events: Reports that he is doing well with pain and movement of left arm improving. Dressing change at bedside (well tolerated by pt) Open fasciotomies of forearm and hand with clean appearing wound base w/plan for OR today for closure pending schedule O: Last value Range last 24hrs Temperature Temp: 37.2 ??C (99 ??F) Temp: [36.8 ??C (98.2 ??F)-37.3 ??C (99.1 ??F)] Heart Rate Heart Rate: 70 Heart Rate: [70] Blood Pressure BP: (!) 169/102 BP: (151-195)/(84-112) Respiratory Rate Resp: 20 Resp: [18-20] SpO2 SpO2: 97 % SpO2: [90 %-97 %] 04/11 701 - 04/12 07 In: 795.2 [P.O.:300; I.V.:443.2] Out: 2375 [Urine:2375] Physical Exam: General: NAD HEENT: normocephalic, anicteric sclerae CVS: RRR Pulm: breathing comfortably Abd: soft, non-tender, non-distended. Skin: warm, dry Ext: LUE dressing taken down, fasciotomy sites appear clean and dry. Pos radial pulse signal. Good capillary refill. Able to wiggle fingers and move wrist . Wound base clean. Neuro: Grossly intact, nonfocal. Lines/Drains: Recent Labs 04/12/1883904/11/1855404/10/18 0535 04/09/182024 WBC 5.0 5.7 5.8 -- HGB 7.9* 7.4* 7.3* -- HCT 24.0* 22.2* 22.0* -- PLATELET 183 150 105* -- PT 20.0* 26.8* 28.7* 30.4* INR 1.8 2.4 2.6 2.7 PTT 32 37 36 37 Recent Labs 04/12/18 0840 04/11/1855404/10/18 0535 NA 140 144 144 K 4.4 4.5 4.3 CL 106 110* 109* CO2 20* 22 23 BUN 31* 33* 33* CREATININE 2.35* 2.33* 2.59* GLUCOSE 113 112 112 CALCIUM 7.4* 7.3* 7.9* ASSESSMENT: Crhisty Ginna Arnol is a 57 y.o. male w/ renal transplant presented with massive bleeding andPEA arrest on 04/06 from ruptured LUE mycotic AVF aneurysm s/p exploration, repair of AVF with patchangioplasty and forarm and hand fasciotomies. Open wounds of the forearm and hand appear clean withno drainage or surrounding erythema. The patient has a palpable radial pulse. Patient planned for OR today for closure of LUE fasciotomies. Patient at this point appears much improved. We will continue with daily dressing changes. Appreciate Transplant recs. PLAN: - Plan for return to OR today04/12 for washout, debridement, and partial closure based on OR schedule - NPO for OR - Daily dressing change by Vascular Surgery - Per Transplant (appreciate recs): pt s/p Renal transplant with CKD stage IV: - Repeat UA with Urine protein/creatinine ratio. -Will continue with current immunosuppression -prograf-1 mg BID and Cellcept - 250 BID,no interaction with kepra and -Check prograf trough dose in morning before morning dose -Check Mg and phos levels and need repletion -Need to continue with sodium bicarb for correction of non gap metabolic acidosis-likely due to chronic kidney disease. -No acute indication for DIPLOMATIC INTERPRETER, Strict intake and out put monitoring, Daily weights, Renal dosing formedications - Hypertension: was on hydralazine 50 mg BID,diltiazem 120 mg XT daily ,metorpolol 50 mg TID,losartan 25 mg daily at home.Will recommend to restart his home meds and continue holding losartan in the setting of TRISTIAN. 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 Transplant team is consulted for assist in management of post transplant CKD patient and immunosuppression therapy. S: Was seen in his room,seems to be back to his baseline.Maintaining good UOP and creatinine back to his baseline. PHYSICAL EXAM: Intake/Output Summary (Last 24 hours) at 04/12/18917 Last data filed at 04/12/18 0700 Gross per 24 hour Intake 795.2 ml Output 2375 ml Net -1579.8 ml Last value Range last 24 hrs Temperature Temp: 36.9 ??C (98.4 ??F) Temp: [36.9 ??C (98.4 ??F)-37.3 ??C (99.1 ??F)] Heart Rate Heart Rate: 80 Heart Rate: [78-80] Blood Pressure BP: 182/84 BP: (151-185)/(84-108) Respiratory Rate Resp: 20 Resp: [18-20] SpO2 SpO2: 97 % SpO2: [90 %-97 %] Appearance - Alert, back to his baseline. Skin - No exanthem. HEENT - Sclera white. Mucous membranes moist. Chest:. Lungs clear to ausculatation w/o wheezes/ rhonchi/ crackles. Heart - S1 and S2 clear w/o murmur, gallop, or rub. JVP not elevated. Abd - Soft. + BS. No bruit. Non tender. Ext -Left UE AVF site with dressing and also with GIANNI Wrap.Lower extremities no edema, no cyanosis.Peripheral pulses felt bilaterally and equal. Neuro - Was able to move all extremities . STUDIES: Labs: CBC: Recent Labs 04/11/1855404/10/18 0535 04/09/18 0305 WBC 5.7 5.8 8.1 HGB 7.4* 7.3* 7.8* PLATELET 150 105* 100* Chemistry: Recent Labs 04/11/1855404/10/18 0535 04/09/18 0305 NA 144 144 146* K 4.5 4.3 4.9 CL 110* 109* 110* CO2 22 23 21* BUN 33* 33* 44* CREATININE 2.33* 2.59* 3.00* GLUCOSE 112 112 122 Recent Labs 04/11/18 0555 04/10/18 0535 04/09/18 0305 04/06/18 1740 09/23/17 1101 06/28/17 0859 CALCIUM 7.3* 7.9* 7.7* < > 6.7* < > 8.4* 8.4* MAGNESIUM -- -- -- -- 0.60* -- 0.76 0.82 PHOS -- -- -- -- 3.3 -- 3.9 4.4 < > = values in this interval not displayed. LFT's: Recent Labs 04/06/18 1740 09/23/17 1101 06/28/17 0859 BILITOT 0.3 0.4 0.3 ALBUMIN 2.3* 4.3 4.2 ALKPHOS 57 104 116 ALT 20 11 11 AST 22 23 19 Re Intake/Output Summary (Last 24 hours) at 04/07/18 0851 Last data filed at 04/07/18 0800 Gross per 24 hour Intake 7448 ml Output 2450 ml Net 4998 ml Procedure:04/06/18 -Exploration of LUE AVF, repair of AVF, brachial artery patch angioplasty -Axillary venous phlebotomy -Forearm and hand fasciotomies Left KIdneySpecimen pathology:05/31 ?Specimen: ??Left radicalKidney ?Tumor ?Histologic Type: ?? 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 Histologic Type Comments: ?? Overlapping features of both Type 1 and Type 2 ?papillary RCC are present. (See Discussion) ?Histologic Grade (WHO / ISUP Grade): ?G3 ?Tumor Size: ?? 4.9 Centimeters (cm) ?Tumor Focality: ?? Multifocal ?Tumor Extent ? Anatomic Extent of Tumor: ?? Tumor limited to kidney ?Accessory Tumor Findings ? Sarcomatoid Features: ?? Not identified ? Rhabdoid Features: ?? Not identified ? Tumor Necrosis: ?? Not identified ? Lymphovascular Invasion: ?? Not identified ?Margins: ??Uninvolved by invasive carcinoma Lymph Nodes ?Regional Lymph Nodes: ?? No lymph nodes submitted or found MRI brain w/o contrast:04/07/18: Multiple areas of acute ischemia, primarily cortical, likely reflecting mild hypoxic ischemic injury. ?? 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 -ESRD sec to IgA nephropathy -Had TRISTIAN after hemorrhagic shock and cardiac arrest which was recovered now and back to his baseline kidney function and maintaining good UOP -Need to repeat UA with Urine protein/creatinine ratio. -Will continue with current immunosuppression -prograf-1 mg BID and Cellcept - 250 BID,no interaction with kepra and -Check prograf trough dose in morning before morning dose -Check magnesium and phos levels and need repletion -Need to continue with sodium bicarb for correction of non gap metabolic acidosis-likely due to chronic kidney disease. -No acute indication for DIPLOMATIC INTERPRETER ,,Strict intake and out put monitoring,Daily weights,Renal dosing for medications 2.Hypertension:Was on hydralazine 50 mg BID,diltiazem 120 mg XT daily ,metorpolol 50 mg TID,losartan 25 mg daily at home.Will recommend to restart his home meds and continue holding losartan in the setting of TRISTIAN. 3.Ruptured Left UE AVF and compartment syndrome of L Forearm: s/p exploration,brachial artery patchangioplasty,forearm and hand fasciotomies on 04/06/18.Vascular planning for washout and possible closure soon Thanks for letting us participate in the care of this patient. Call with questions. Seen and Discussed w/ I reviewed all of the above findings and assessment of Dr. Rodríguez edited the above note to reflectmy assessment and examination and formulated the recommendations which accurately reflect mine. * Raulito De Los Santos MD - 04/11/2018 2:24 PM EDT Neurology Progress Notes Patient name: Christy Ambrose Date of : 1960 PCP: Carroll Garcia DO ID: Christy Ambrose is a 57 y.o. R handed M with hx mild cognitive impairment, eilepsy (stable on keppra), IGA nephropathy (s/p renal transplant in 2002, on tacrolimus and mycophenalate, complicated by delayed graft function and recurrent IG nephrectomy, prograft toxicity and L nephrectomy for papillarycarcinoma), HTN, who presented with PEA arrest after being found w/ bleeding from L AVF s/p ROSC who Neurology has been consulted for regarding MRI Brain abnormalities c/w ischemic infarcts and new onset focal motor seizures INTERVAL HISTORY: - Continued on dilantin 100mg tid and keppra 500/250 mg - No further clinical events concerning for seizure like activity - Overnight, no acute events. TTE being completed this am. - Pending return to OR for repeat washout Current Medications: Scheduled Meds: ??? meTOPROLOL 50 mg Oral Q8H EDWARD ??? ceFAZolin 1 g Intravenous Q12H ??? senna-docusate 1 tablet Oral BID ??? fosphenytoin 100 mg PE Intravenous Q8H ??? levETIRAcetam 500 mg Oral Daily ??? levETIRAcetam 250 mg Oral Daily ??? levothyroxine 88 mcg Oral QAM ??? pantoprazole 20 mg Oral BID ??? allopurinol 150 mg Oral Daily ??? sodium chloride 0.9 % 5 mL Intravenous Q12H ??? acetaminophen 1,000 mg Oral Q8H EDWARD ??? tacrolimus 1 mg Oral BID ??? mycophenolate 250 mg Oral BID Continuous Infusions: ??? 07/13 NS with Custom Additives 50 mL/hr at 04/10/18 0023 PRN Meds:.oxyCODONE OR oxyCODONE OR oxyCODONE, LORazepam, HYDROmorphone, ondansetron, sodium chloride 0.9 %, lidocaine, hydrALAZINE, labetalol Physical Exam: Vitals: Temp: [36.6 ??C (97.9 ??F)-37.3 ??C (99.1 ??F)] Heart Rate: [78-80] Resp: [17-18] BP: (162-179)/(84-102) SpO2: [92 %-94 %] Heart Rate from SPO2: [71 bpm-84 bpm] Gen: NAD, Neck: Supple CV: + S1, S2 Resp: CTA B/L Abd: nondistended Ext: Left arm in bandage and splint Neuro Exam: MS: Alert to self, word findings difficulties ongoing but improving CN: PERRL, EOMI, blinks to threat bilaterally Facial sensation intact, no facial asymmetry Motor: Normal bulk Left arm not assessed due to immobilization. Right arm lifts to gravity. Able to lift legs b/l against gravity Sensation: Intact to light touch throughout Reflexes: DTRs 2+ R, 2+ L NT 2+ R, 2+ L NT 2+ R, 2+ L NT 1+ R, 1+ L Patellar 1+ R, 1+ L Achilles tendon Toes - Up bilaterally Coordination: pt unable to follow commands for finger to nose Gait: not assessed Labs: Recent Results (from the past 24 hour(s)) Basic Metabolic Panel (non-fasting) Result Value Ref Range Glucose Lvl 112 65 - 199 mg/dL BUN 33 (H) 10 - 20 mg/dL Creatinine 2.33 (H) 0.80 - 1.50 mg/dL Sodium 144 135 - 145 mmol/L Potassium 4.5 3.5 - 5.0 mmol/L Chloride 110 (H) 98 - 107 mmol/L CO2 22 22 - 31 mmol/L Anion Gap 12 5 - 15 mmol/L Calcium 7.3 (L) 8.5 - 10.5 mg/dL eGFR 30 (L) >=60 mL/min/1.73 m?? eGFR 35 (L) >=60 mL/min/1.73 m?? Prothrombin Time Result Value Ref Range PT 26.8 (H) 9.4 - 12.5 sec INR 2.4 APTT Result Value Ref Range PTT 37 25 - 37 sec Hemogram Result Value Ref Range WBC 5.7 4.0 - 9.5 x10(3)/mcL RBC 2.44 (L) 4.58 - 5.54 x10(6)/mcL Hemoglobin 7.4 (L) 13.7 - 16.5 gm/dL Hematocrit 22.2 (L) 40.5 - 48.5 % MCV 91.0 82.9 - 93.1 fL MCH 30.3 27.5 - 32.1 pg MCHC 33.3 32.0 - 35.7 gm/dL Platelets 150 145 - 357 x10(3)/mcL RDWSD 52.6 (H) 36.0 - 45.0 fL RDWCV 15.9 (H) 11.4 - 13.8 % MPV 9.1 7.6 - 12.9 fL nRBC % Auto 0.0 % nRBC Abs Auto 0.000 0.000 - 0.000 x10(3)/mcL Differential, Automated Result Value Ref Range Neutrophils % 68.9 % Neutr Abs (ANC) 3.90 1.70 - 6.10 x10(3)/mcL Lymphocytes % 14.7 % Lymphocytes Abs 0.8 (L) 0.9 - 3.2 x10(3)/mcL Monocytes % 10.6 % Monocyte Abs 0.6 0.3 - 0.9 x10(3)/mcL Eosinophils % 4.9 % Eosinophils Abs 0.3 0.0 - 0.4 x10(3)/mcL Basophils % 0.4 % Basophils Abs 0.0 0.0 - 0.1 x10(3)/mcL Immature Gran % 0.50 % Veronika Gran Abs 0.03 0.00 - 0.04 x10(3)/mcL ABO/Rh Typing Result Value Ref Range ABORh Type A Pos Antibody screen Result Value Ref Range Ab Screen Interp Negative Expires at 2359 on: 04/14/2018 ABORH Recheck Status Result Value Ref Range ABORH Type Recheck Completed Diagnostic Tests and Imaging: None new Assessment and Plan: Christy Ambrose is a 57 y.o.F with h/o IgA nephropathy sp renal tx with complications, sp R nephrectomy who p/w PEA arrest after hemorrhage from L arm AVF, sp several rounds of CPR. Pt was brought to OSH intubated and sedated, underwent urgent OR course, now extubated and stabilized. Neurology is consulted regarding diffusion restricted abnormalities as well as focal motor seizures. Sp dilantin load on 04/08 and maintenance therapy with resolution of clinical activity. VEEG was negative for epileptiform activity. At this would, would recommend returning to keppra monotherapy per home regimen as outlined below given concern for tacrolimus toxicity with dilantin therapy. He will need fu with Dr. Miles in epilepsy upon discharge As far as his ischemic infarcts, would still recommend completion of MRA head to assess for intracranial atherosclerosis or stenosis as some of his infarcts are not consistent with ischemic infarcts. Recommendations #Seizures - Continue home Keppra 500 QAM and 250 QPM - Discontinue dilantin today - Fu with his outpatient epileptologist, Dr. Miles on discharge #Hypoxic Ischemic Injury w/ possible superimposed embolic infarcts -neck MRA (without gadolinium) -continue to exercise caution about lowering the BP abruptly Vascular neurology will sign off. Please contact us with any new neurological concerns or issues. Raulito De Los Santos MD 04/11/2018 Neurology resident, PGY-3 Vascular Neurology Pager [phone] Associated attestation - Tim Collins MD - 04/11/2018 6:13 PM EDT Neurology Staff Note I have reviewed the resident's history during the visit and I agree with the details as written. Myphysical examination confirms the resident's findings. The assessment and plan were formulated in discussion with me at the time of the visit and I agree with them as documented. He is doing much better and no clonic activity noted today. Would stop the dilantin now and continue the Keppra (prograf level may be affected after dilantin stopped). Clarification, I would do MRA head and neck (good renal fx so no issue with gadolinium) * Kelsey Hua, PT - 04/11/2018 1:19 PM EDT Physical Therapy Evaluation Pertinent History of Current Problem: Christy Ambrose is a 57 y.o. 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 Precautions/Restrictions: fall, weight bearing Precautions Comments: NWB LUE Assessment: Pt seen today for pt eval. Pt presents with mild confusion, requiring increased processing time for questions. Pt would often amend statements after initially answering. Pt initially demonstrated poor safety awareness and insight into limitations, but gained and maintained increased insi ght during session. Pt presented w/ pain, decreased UE ROM, decreased strength, decreased balance, and decreased activity tolerance. Pt required min assist for bed mobility, and required mod x2 assist for sit->stand transfers and ambulating to bedside chair. Pt was given a rolling walker to support balance, w/ care to avoid weight-bearing through LUE per his precautions. Plan to assess mobility w/ paradise-walker or other single-sided AD during next visit. Pt required constant support w/ gait belt to maintain balance during ambulation. Provided education and training for gait and spirometry. Pt is a good candidate for ongoing PT services. Please see associated flow sheet data below for objective information regarding today's session Staff Mobility Recommendations: Stand-pivot transfers between bed and chair, assist x2. Ongoing spirometry Anticipated Discharge Disposition: inpatient rehabilitation facility Moises Reddy, SPT Inpatient Physical Therapy Patient status, treatment interventions, and goals discussed with student. I am in agreement with all details and associated flowsheet rows as documented and was present for all aspects of the patient treatment session. Kelsey Hua, PT Pager # [phone] PT Evaluation Code Rationale: ?? Diagnosis & Pertinent Co-Morbidities, personal factors, and present illness affecting Plan of Care: Patient Active Problem List Diagnosis Code ??? Epilepsy G40.909 ??? End stage renal disease N18.6 ??? Gout M10.9 ??? Hypertension I10 ??? Left leg DVT I82.402 ??? Kidney replaced by transplant Z94.0 ??? IgA nephropathy N02.8 ??? BCC (basal cell carcinoma of skin) C44.91 ??? Acne rosacea L71.9 ??? Nevus D22.9 ??? Rosacea L71.9 ??? Anticoagulated on Coumadin [...] N18.4 ??? 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 H/O kidney transplant Z94.0 ??? TRISTIAN (acute kidney injury) N17.9 ??? Weight loss R63.4 ??? Gastrointestinal hemorrhage K92.2 ??? Bradycardia R00.1 ??? Left renal mass N28.89 ??? Renal mass N28.89 ??? 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 Hemorrhagic shock R57.8 Additional personal factors or co-morbidities that impact plan: ?? Total # of Factors: 0 1-2 3+ x ?? Examination of body system impairments, functional limitations and behaviors, and/or participation restrictions. Addressing 1-2 elements Addressing 3 + elements Addressing 4 + elements x ?? Clinical presentation: See assessment above. Stable/Uncomplicated Evolving/Fluctuating Symptoms Unstable/Unpredictable x ?? Clinical decision making of high complexity based on pt's functional performance as outlined in this evaluation. 04/11/18 0958 Rehab Evaluation Document Type evaluation Total Evaluation Minutes, Physical Therapy 35 (eval and fxl. therex) Patient Effort good Symptoms Noted During/After Treatment none General Information Patient Profile Review yes Patient/Family/Caregiver Comments/Observations yeah, I am feeling a little confused General Observations of Patient pt supine in bed on arrival Pertinent History of Current Problem Christy Ambrose is a 57 y.o. 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 Precautions/Restrictions fall;weight bearing Precautions Comments NWB LUE Limitations/Impairments safety/cognitive Treatment Number PT 1 Living Environment Patient population Adult Living Environment Living Environment Comment pt lives w/ mother in 5th floor apartment. building has an elevator and ramp to enter. pt has tub shower, able to use railings for support as needed. pt is able to and previously was driving Functional Level Prior Prior Functional Level Comment pt reports he was fully functional, able to dress, cook, clean independently. 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 pt usually ambulates w/o AD, but occasionally will walk w/ cane Vital Signs Heart Rate 78 SpO2 92 % O2 Device RA Cognitive Assessment Interventions Behavior/Mood Observations (Cognitive) WNL/WFL Orientation Status (Cognitive) oriented x 4 Attention (Cognitive) mild impairment;distractible;needs cues to redirect Follows Commands/Answers Questions (Cognitive) needs repetition;needs increased time;needs cueing;able to follow single-step instructions Personal Safety (Cognitive) impulsive;decreased insight to deficits;mild impairment (gained insight during session) Pain Scale/Rating Pain Assessment Scale Faces (Hobbs-Bertrand FACES Pain Rating Scale) Pain Level 6 Pain Goal 0 Pain Assessment Numbers/Faces/Word Pain Body Location - Side Left Pain Body Location - Orientation distal Pain Body Location arm ROM (Range of Motion) Additional Documentation General Assessment (Group) General Range of Motion upper extremity range of motion deficits identified General Range of Motion Detail decreased UE ROM, particularly on LUE MMT (Manual Muscle Testing) Additional Documentation General Assessment (Group) General Manual Muscle Testing Assessment Detail generalized weakness, LUE NWB General Assessment General Manual Muscle Testing Assessment upper extremity strength deficits identified;lower extremity strength deficits identified Mobility Assessment/Training Additional Documentation Bed Mobility Assessment/Treatment (Group);Gait Assessment/Treatment (Group);Transfer Assessment/Treatment (Group) Bed Mobility Assessment/Treatment Assistive Device (Bed Mobility) bed rails [id number]-Dob [place] (Bed Mobility) minimum assist (75% patient effort) Comment (Bed Mobility) HOB elevated Transfer Assessment/Treatment [place] (Sit-Stand Transfers) moderate assist (50% patient effort);verbal cues required;2 person assist required [place] (Stand-Sit Transfers) moderate assist (50% patient effort);verbal cues required;2 person assist required [id number]-[id number]-Pti Assistive Device (Transfers) rolling walker (initially transfered mod x2 w/o AD, poor balance) Safety Issues (Transfers) loses balance backward (lost balance forward initially) Impairments (Transfers) balance impaired;strength decreased;pain Comment (Transfers) cues for hand placement on RW Gait Assessment/Treatment [place] (Gait) moderate assist (50% patient effort);verbal cues required;nonverbal cues required (demo/gesture);2 person assist required Assistive Device (Gait) rolling walker;gait belt Distance in Feet (Gait) 15 Comment (Gait) bed to bedside chair- required constant support to maintain balance (monitored to avoid LUE w/ walker to maintain NWB precautions) Safety Issues (Gait) balance decreased during turns;step length decreased;loses balance backward (cognitive) Impairments (Gait) balance impaired;pain;strength decreased Motor Skills/Interventions Additional Documentation Balance Skills Training (Group) Balance Skills Training Sitting Balance: Static good balance Sitting Balance: Dynamic fair balance Wou-yk-Qubol Balance poor balance Standing Balance: Static poor balance (w/ RW) Standing Balance: Dynamic poor balance (w/ RW) Respiratory WDL Respiratory WDL WDL Cardiovascular WDL (Adult) Cardiac WDL WDL Coping Observed Emotional State accepting;cooperative Plan of Care Review Plan Of Care Reviewed With patient Physical Therapy Goal Types Physical Therapy Goal Types Bed Mobility Goal (Group);Gait Training Goal (Group);Transfer Training Goal (Group) Bed Mobility Goal Bed Mobility Goal, Date Established 04/11/18 Bed Mobility Goal, Time to Achieve 1 wk Bed Mobility Goal, Activity Type supine to sit/sit to supine;sidelying to sit/sit to sidelying Bed Mobility Goal, [place] Level independent Gait Training Goal Gait Training Goal, Date Established 04/11/18 Gait Training Goal, Time to Achieve 2 wks Gait Training Goal, [place] Level independent Gait Training Goal, Assist Device other (see comments) (LRD ) Gait Training Goal, Distance to Achieve 150 ft Transfer Training Goal Transfer Training Goal, Date Established 04/11/18 Transfer Training Goal, Time to Achieve 2 wks Transfer Training Goal, Activity Type all transfers Transfer Train Goal, [place] Level independent Transfer Training Goal, Assist Device (LRD) Clinical Impression Rehab Potential good, to achieve stated therapy goals Therapy Frequency 2-4 times/wk Anticipated Equipment Needs at Discharge (possible need for AD w/ ambulating, TBD) Anticipated Discharge Disposition inpatient rehabilitation facility General Interventions Additional Documentation Planned Therapy Interventions (Group) Planned Therapy Interventions balance training;bed mobility training;gait training;patient/family education;strengthening;transfer training Patient status, treatment interventions, and goals discussed with student. I am in agreement with all details and associated flowsheet rows as documented and was present for all aspects of the patient treatment session. Kelsey Hua PT Pager # [phone] * Karis Mejia MSW - 04/11/2018 1:15 PM EDT Discharge Planning: O: Requested by CM-RN to contact Mother re her concerns around housing. Federal Appellate Clerk spoke with Mother who relayed that she and patient do have to move from their current house but there is no date set as yet. Mother went on to report that she felt that patient would be better off living in assisted living as he gets older and has ongoing care needs. Mother has no information about anything available in her community and plans to speak with her local [facility]. Federal Appellate Clerk suggested to Mother that she begin to have a conversation with them around [place] [facility] as that would be the payor source for patient. Mother is also interested in finding out what the discharge plan will be. Federal Appellate Clerk relayed that a CM-RN would be in contact to discuss details as we get closer to an actual discharge date. A: Pleasant, engageable female, clearly looking ahead for patient's needs in the future. P: Will continue to follow with team, assist as needed/requested. Available to offer ongoing support to Mother if requested. * Tim Ogden MD - 04/11/2018 8:07 AM EDT INPATIENT DAILY PROGRESS NOTE Patient Name: Christy Ambrose Patient Age: 57 y.o. Birthdate: 1960 Admit date: 04/06/2018 Attending Physician: Chase Olvera MD ID: Christy Ambrose is a 57 y.o. male w/ renal transplant presented with massive bleeding from ruptured LUE mycotic AVF aneurysm s/p exploration, repair of AVF with patch angioplasty and forarm and hand fasciotomies. 24hr events: Transferred to floor over the weekend and doing well. Dressing change at bedside (well tolerated by pt) Open fasciotomies of forearm and hand with clean appearing wound base w/plan for OR today for closure pending schedule O: Last value Range last 24hrs Temperature Temp: 37.2 ??C (99 ??F) Temp: [36.6 ??C (97.9 ??F)-37.3 ??C (99.1 ??F)] Heart Rate Heart Rate: 71 Heart Rate: -- Blood Pressure BP: 178/84 BP: (152-179)/(83-102) Respiratory Rate Resp: 17 Resp: [17-18] SpO2 SpO2: 94 % SpO2: [92 %-96 %] 04/10 0701 - 04/11 0700 In: 2602 [P.O.:1080; I.V.:1422] Out: 2675 [Urine:2675] Intake Output Net for admission + Physical Exam: General: NAD HEENT: normocephalic, anicteric sclerae CVS: RRR Pulm: breathing comfortably Abd: soft, non-tender, non-distended. Skin: warm, dry Ext: LUE dressing taken down, fasciotomy sites appear clean and dry. Pos radial pulse signal. Good capillary refill. Able to wiggle fingers slightly. Wound base clean. Neuro: Grossly intact, nonfocal. Lines/Drains: Recent Labs 04/11/18 0555 04/10/18 0535 04/09/18 2025 04/09/18 1003 04/09/18 0305 04/08/18 1045 WBC 5.7 5.8 -- -- 8.1 -- HGB 7.4* 7.3* -- -- 7.8* 7.2* HCT 22.2* 22.0* -- -- 22.8* 21.3* PLATELET 150 105* -- -- 100* -- PT 26.8* 28.7* 30.4* 47.7* -- 51.2* INR 2.4 2.6 2.7 4.2 -- 4.5 PTT 37 36 37 39* -- 38* Recent Labs 04/11/18 0555 04/10/18 0535 04/09/18 0305 NA 144 144 146* K 4.5 4.3 4.9 CL 110* 109* 110* CO2 22 23 21* BUN 33* 33* 44* CREATININE 2.33* 2.59* 3.00* GLUCOSE 112 112 122 CALCIUM 7.3* 7.9* 7.7* Other Labs: Imaging: Micro: ASSESSMENT: Christy Ambrose is a 57 y.o. male w/ renal transplant presented with massive bleeding andPEA arrest on 04/06 from ruptured LUE mycotic AVF aneurysm s/p exploration, repair of AVF with patchangioplasty and forarm and hand fasciotomies. Open wounds of the forearm and hand appear clean withno drainage or surrounding erythema. The patient has a palpable radial pulse. Patient planned for OR today for closure of LUE fasciotomies. Patient at this point appears much improved. We will continue with daily dressing changes. PLAN: - Plan for return to OR today04/11 for washout, debridement, and partial closure - NPO for OR - Daily dressing change by Vascular Surgery - Appreciate transplant nephrology assistance as well as neurology in seizure management (EEG monitoring no longer needed); will follow up with Transplant Nephrology/[facility] today Tim Ogden MD * Odalis Castanon MD - 04/10/2018 3:14 PM EDT Update I spoke w neurology. They did not feel continued EEG monitoring was necessary. Attempted to page transplant medicine but no reply - Will discuss w them tomorrow possibly starting epo considering ESRDand low plt count. NPO at midnight for closure of LUE fasciotomies tomorrow. Odalis Castanon MD/NEHA, PGY-5 Section of Vascular Surgery, Pager [phone] * Tim Ogden MD - 04/10/2018 10:57 AM EDT INPATIENT DAILY PROGRESS NOTE Patient Name: Christy Ambrose Patient Age: 57 y.o. Birthdate: 1960 Admit date: 04/06/2018 Attending Physician: Chase Olvera MD ID: Christy Ambrose is a 57 y.o. male w/ renal transplant presented with massive bleeding from ruptured LUE mycotic AVF aneurysm s/p exploration, repair of AVF with patch angioplasty and forarm and hand fasciotomies. 24hr events: Transferred to floor yesterday and doing well. Did have some agitation in ICU prior to move but hasbeen appropriate thus far on floor. Lost one of his IV access points. Dressing change at bedside Open fasciotomies of forearm and hand with clean appearing wound base Previous EEG shows diffuse slowing but no seizure activity O: Last value Range last 24hrs Temperature Temp: 37.1 ??C (98.8 ??F) Temp: [36.6 ??C (97.9 ??F)-37.2 ??C (99 ??F)] Heart Rate Heart Rate: 71 Heart Rate: [62-76] Blood Pressure BP: 152/75 BP: (125-182)/(75-113) Respiratory Rate Resp: 18 Resp: [10-24] SpO2 SpO2: 97 % SpO2: [91 %-97 %] 04/09 0701 - 04/10 0700 In: 2289 [P.O.:130; I.V.:1327] Out: 2595 [Urine:2595] Intake Output Net for admission + Physical Exam: General: NAD HEENT: normocephalic, anicteric sclerae CVS: RRR Pulm: breathing comfortably Abd: soft, non-tender, non-distended. Skin: warm, dry Ext: LUE dressing taken down, fasciotomy sites appear clean and dry. Pos radial pulse signal. Good capillary refill. Able to wiggle fingers slightly. Wound base clean. Neuro: Grossly intact, nonfocal. Lines/Drains: Recent Labs 04/10/18 0535 04/09/18 2025 04/09/18 1003 04/09/18 0305 04/08/18 1045 04/08/18 0405 WBC 5.8 -- -- 8.1 -- 8.7 HGB 7.3* -- -- 7.8* 7.2* 6.8* HCT 22.0* -- -- 22.8* 21.3* 20.4* PLATELET 105* -- -- 100* -- 94* PT 28.7* 30.4* 47.7* -- 51.2* -- INR 2.6 2.7 4.2 -- 4.5 -- PTT 36 37 39* -- 38* -- Recent Labs 04/10/18 0535 04/09/18 0305 04/08/18 0405 NA 144 146* 144 K 4.3 4.9 5.4* CL 109* 110* 115* CO2 23 21* 16* BUN 33* 44* 47* CREATININE 2.59* 3.00* 2.93* GLUCOSE 112 122 120 CALCIUM 7.9* 7.7* 7.1* Other Labs: Imaging: Micro: ASSESSMENT: Christy Ambrose is a 57 y.o. male w/ renal transplant presented with massive bleeding andPEA arrest on 04/06 from ruptured LUE mycotic AVF aneurysm s/p exploration, repair of AVF with patchangioplasty and forarm and hand fasciotomies. Open wounds of the forearm and hand appear clean withno drainage or surrounding erythema. The patient has a palpable radial pulse. Patient was planned for OR two days ago for closure, but unfortunately the patient did have seizureactivity. Patient at this point appears much improved. We will tentatively plan to take the patientback to the OR on Wednesday for partial closure. We will continue with daily dressing changes. PLAN: - Plan for return to OR Wednesday 04/11 for washout, debridement, and partial closure - NPO at midnight - Daily dressing change by Vascular Surgery - Appreciate transplant nephrology assistance as well as neurology in seizure management Tim Ogden MD * Tim Ogden MD - 04/10/2018 10:53 AM EDT INPATIENT DAILY PROGRESS NOTE Patient Name: Christy Ambrose Patient Age: 57 y.o. Birthdate: 1960 Admit date: 04/06/2018 Attending Physician: Chase Olvera MD ID: Christy Ambrose is a 57 y.o. male w/ renal transplant presented with massive bleeding from ruptured LUE mycotic AVF aneurysm s/p exploration, repair of AVF with patch angioplasty and forarm and hand fasciotomies. 24hr events: Transferred to floor yesterday and doing well. Did have some agitation in ICU prior to move but hasbeen appropriate thus far on floor. Lost one of his IV access points. Dressing change at bedside Open fasciotomies of forearm and hand with clean appearing wound base Previous EEG shows diffuse slowing but no seizure activity O: Last value Range last 24hrs Temperature Temp: 37.1 ??C (98.8 ??F) Temp: [36.6 ??C (97.9 ??F)-37.2 ??C (99 ??F)] Heart Rate Heart Rate: 71 Heart Rate: [62-76] Blood Pressure BP: 152/75 BP: (125-182)/(75-113) Respiratory Rate Resp: 18 Resp: [10-24] SpO2 SpO2: 97 % SpO2: [91 %-97 %] 04/09 0701 - 04/10 0700 In: 2289 [P.O.:130; I.V.:1327] Out: 2595 [Urine:2595] Intake Output Net for admission + Physical Exam: General: NAD HEENT: normocephalic, anicteric sclerae CVS: RRR Pulm: breathing comfortably Abd: soft, non-tender, non-distended. Skin: warm, dry Ext: LUE dressing taken down, fasciotomy sites appear clean and dry. Pos radial pulse signal. Good capillary refill. Able to wiggle fingers slightly. Wound base clean. Neuro: Grossly intact, nonfocal. Lines/Drains: Recent Labs 04/10/18 0535 04/09/18202404/09/18 1003 04/09/18 0305 04/08/18 1045 04/08/18 0405 WBC 5.8 -- -- 8.1 -- 8.7 HGB 7.3* -- -- 7.8* 7.2* 6.8* HCT 22.0* -- -- 22.8* 21.3* 20.4* PLATELET 105* -- -- 100* -- 94* PT 28.7* 30.4* 47.7* -- 51.2* -- INR 2.6 2.7 4.2 -- 4.5 -- PTT 36 37 39* -- 38* -- Recent Labs 04/10/18 0535 04/09/18 0305 04/08/18 0405 NA 144 146* 144 K 4.3 4.9 5.4* CL 109* 110* 115* CO2 23 21* 16* BUN 33* 44* 47* CREATININE 2.59* 3.00* 2.93* GLUCOSE 112 122 120 CALCIUM 7.9* 7.7* 7.1* Other Labs: Imaging: Micro: ASSESSMENT: Christy Ambrose is a 57 y.o. male w/ renal transplant presented with massive bleeding andPEA arrest on 04/06 from ruptured LUE mycotic AVF aneurysm s/p exploration, repair of AVF with patchangioplasty and forarm and hand fasciotomies. Open wounds of the forearm and hand appear clean withno drainage or surrounding erythema. The patient has a palpable radial pulse. Patient was planned for OR two days ago for closure, but unfortunately the patient did have seizureactivity. Patient at this point appears much improved. We will tentatively plan to take the patientback to the OR on Wednesday for partial closure. We will continue with daily dressing changes. PLAN: - Plan for return to OR Wednesday 04/11 for washout, debridement, and partial closure - Daily dressing change by Vascular Surgery - Appreciate transplant nephrology assistance as well as neurology in seizure management Tim Ogden MD * Zacarias Good MD - 04/09/2018 12:30 PM EDT Images from the original note were not included. Neurology Progress Notes Patient name: Christy Ambrose Date of : 1960 PCP: Carroll Garcia, ID: Christy Ambrose is a 57 y.o. R handed M with hx mild cognitive impairment, eilepsy (stable on keppra), IGA nephropathy (s/p renal transplant in 2002, on tacrolimus and mycophenalate, complicated by delayed graft function and recurrent IG nephrectomy, prograft toxicity and L nephrectomy for papillary carcinoma), HTN, who presented with PEA arrest after being found w/ bleeding from L AVF s/p ROSC who Neurology has been consulted for regarding MRI Brain abnormalities and focal motor seizures INTERVAL HISTORY: -MRI Brain - multiple areas of restricted diffusion some of which have the appearance of hypoxic ischemic damage while others are concerning for possible embolic infarcts -focal motor seizures of L head, neck, chest wall with occasional leg myoclonus occurring concurrently and independently; one generalized seizure yesterday; s/p 1 mg IV Ativan, s/p 1g Keppra load (renally dosed), keppra level checked. Improvement in twitching after Keppra load and further supression with addition of fosphenytoin load 10 mg/PE kg and maintenance dose 100 mg Q8 -EEG does not have any epileptic correlate but the seizures may be too small to be detected on scalp EEG. It continues to show generalized slowing -Dicontinued vEEG monitoring -phenytoin level on 04/08/18: Free 0.95 (Ref: 1-2), Total 7.3 (10-20) -patient with some improvement in mentation also having ongoing issues with expressive aphasia -CUS unremarkable -some improvement in electrolyte derangements -hypocalcemia -hyperkalemia Current Medications: Scheduled Meds: ??? meTOPROLOL 50 mg Oral Q8H EDWARD ??? ceFAZolin 1 g Intravenous Q12H ??? senna-docusate 1 tablet Oral BID ??? fosphenytoin 100 mg PE Intravenous Q8H ??? levETIRAcetam 500 mg Oral Daily ??? levETIRAcetam 250 mg Oral Daily ??? levothyroxine 88 mcg Oral QAM ??? pantoprazole 20 mg Oral BID ??? allopurinol 150 mg Oral Daily ??? sodium chloride 0.9 % 5 mL Intravenous Q12H ??? acetaminophen 1,000 mg Oral Q8H EDWARD ??? tacrolimus 1 mg Oral BID ??? mycophenolate 250 mg Oral BID Continuous Infusions: ??? 1/2 NS with Custom Additives 50 mL/hr at 04/09/18 0652 PRN Meds:.LORazepam, HYDROmorphone, ondansetron, sodium chloride 0.9 %, lidocaine, hydrALAZINE, labetalol Physical Exam: Vitals: Temp: [36.9 ??C (98.4 ??F)-37.5 ??C (99.5 ??F)] Heart Rate: [64-98] Resp: [12-20] BP: (139-198)/(80-122) SpO2: [91 %-98 %] Heart Rate from SPO2: [64 bpm-98 bpm] Gen: NAD, Neck: Supple CV: + S1, S2 Resp: CTA B/L Abd: nondistended Ext: Left arm in bandage and splint Neuro Exam: MS: Alert to self, word findings difficulties ongoing but improving, expressive aphasia, difficultyfollowing complex commands but improving, able to count to 10, unable to tell me his birthday but can tell me his name. Cannot tell me the date. CN: PERRL, EOMI, blinks to threat bilaterally Facial sensation intact, no facial asymmetry Motor: Normal bulk Left arm not assessed due to immobilization. Right arm lifts to gravity. Able to open and close fist. Patient able to wiggle toes bilaterally and can transiently lift legs up to gravity bilaterally Sensation: Intact to light touch throughout Reflexes: DTRs 2+ R, 2+ L NT 2+ R, 2+ L NT 2+ R, 2+ L NT 1+ R, 1+ L Patellar 1+ R, 1+ L Achilles tendon Toes - Up bilaterally Coordination: pt unable to follow commands for finger to nose Gait: not assessed Labs: Recent Results (from the past 24 hour(s)) Phenytoin level, total and free Result Value Ref Range Phenytoin Lvl 7.3 (L) 10.0 - 20.0 mg/L Phenytoin, Free 0.95 (L) 1.00 - 2.00 mg/L Phenytoin Free% 13 (H) 8 - 12 % Lavender Tube HOLD Result Value Ref Range Lavender Hold Sample in lab. Basic Metabolic Panel (non-fasting) Result Value Ref Range Glucose Lvl 122 65 - 199 mg/dL BUN 44 (H) 10 - 20 mg/dL Creatinine 3.00 (H) 0.80 - 1.50 mg/dL Sodium 146 (H) 135 - 145 mmol/L Potassium 4.9 3.5 - 5.0 mmol/L Chloride 110 (H) 98 - 107 mmol/L CO2 21 (L) 22 - 31 mmol/L Anion Gap 15 5 - 15 mmol/L Calcium 7.7 (L) 8.5 - 10.5 mg/dL eGFR 22 (L) >=60 mL/min/1.73 m?? eGFR 26 (L) >=60 mL/min/1.73 m?? Hemogram Result Value Ref Range WBC 8.1 4.0 - 9.5 x10(3)/mcL RBC 2.55 (L) 4.58 - 5.54 x10(6)/mcL Hemoglobin 7.8 (L) 13.7 - 16.5 gm/dL Hematocrit 22.8 (L) 40.5 - 48.5 % MCV 89.4 82.9 - 93.1 fL MCH 30.6 27.5 - 32.1 pg MCHC 34.2 32.0 - 35.7 gm/dL Platelets 100 (L) 145 - 357 x10(3)/mcL RDWSD 53.7 (H) 36.0 - 45.0 fL RDWCV 16.6 (H) 11.4 - 13.8 % MPV 8.9 7.6 - 12.9 fL nRBC % Auto 0.0 % nRBC Abs Auto 0.000 0.000 - 0.000 x10(3)/mcL Differential, Automated Result Value Ref Range Neutrophils % 74.9 % Neutr Abs (ANC) 6.08 1.70 - 6.10 x10(3)/mcL Lymphocytes % 12.2 % Lymphocytes Abs 1.0 0.9 - 3.2 x10(3)/mcL Monocytes % 8.7 % Monocyte Abs 0.7 0.3 - 0.9 x10(3)/mcL Eosinophils % 3.2 % Eosinophils Abs 0.3 0.0 - 0.4 x10(3)/mcL Basophils % 0.5 % Basophils Abs 0.0 0.0 - 0.1 x10(3)/mcL Immature Gran % 0.50 % Veronika Gran Abs 0.04 0.00 - 0.04 x10(3)/mcL Prothrombin Time Result Value Ref Range PT 47.7 (H) 9.4 - 12.5 sec INR 4.2 APTT Result Value Ref Range PTT 39 (H) 25 - 37 sec Diagnostic Tests and Imaging: CTH CT HEAD: No acute intracranial abnormality. Question posttraumatic changes with encephalomalacic changes left anterior temporal lobe. Asymmetric low-attenuation periventricular white matter left greater than right and subtle evidence of volume loss in the left hemisphere raise the question of ischemic change on the left related to left-sided carotid disease. Clinical correlation recommended. Assessment and Plan: Christymaty Ambrose is a 57 y.o.F with h/o IgA nephropathy sp renal tx with complications, sp R nephrectomy who p/w PEA arrest after hemorrhage from L arm AVF, sp several rounds of CPR. Pt was brought to OSH intubated and sedated, underwent urgent OR course, now extubated and stabilized. Neurology is consulted regarding diffusion restricted abnormalities as well as focal motor seizures. Patient's left-sided twitching have become gradually less apparent over the last 24 hours with the addition of a Keppra load as well as fosphenytoin load and continued maintenance dose. His EEG does not show any electrographic seizures correlating with these movements but clinically they appear to be focal motor seizures that are too small to be captured on scalp EEG. Yesterday afternoon and to aless extent this morning he was having twitches that appeared to correlate with behavioral arrest. He still has some significant aphasia although not as profound as it was yesterday. He is following directions more and is more interactive and alert. Would continue the fosphenytoin and the Keppra asit is ordered currently. Please check a free and total Dilantin level on Wednesday, April 11. We willdiscontinue the video EEG as at this point he can be monitored clinically by neurological exam and also the EEG is not picking up what are likely small focal seizures of both simple and complex and semiology. Regarding his diffusion-weighted imaging abnormalities we suspect that these are result of hypoxic ischemic injury although, as mentioned, some of the abnormalities have the appearance of embolic phenomenon. His carotid ultrasound does not suggest any high-grade stenosis or significant atherosclerotic disease to suggest he had an atheroembolic event from his neck vasculature. Would still pursue an MRA of the neck without gadolinium when able. Recommendations #Seizures discontinue vEEG monitoring and monitor clinically -continue Keppra 500 QAM and 250 QPM (s/p 1 g load on 04/08/18) -follow-up Keppra level drawn on 04/08/18 (before load was given) to determine if maintenance dose should be adjusted -s/p 10 mg/PE kg on 04/08/18 and maintenance dose of 100 mg Q8 hours -phenytoin level s/p load on 04/08/18: -please recheck dilantin level (FREE AND TOTAL) on Wednesday04/11/18 -continue to address infections and correct electrolyte/metabolic derangements that lower seizure threshold #Hypoxic Ischemic Injury w/ possible superimposed embolic infarcts -neck MRA (without gadolinium) -CUS - no evidence of carotid stenosis -continue to exercise caution about lowering the BP abruptly John Rose MD 04/09/2018 Neurology resident, PGY-4 Vascular Neurology Pager [phone] ... I saw and evaluated the patient with Dr. Rose. I have reviewed the resident's history during the visit and I agree with the details as written. My neurological examination confirms the resident's findings. The assessment and plan were formulated in discussion with me at the time of the visit and I agree with them as documented..Zacarias Good MD * Odalis Castanon MD - 04/09/2018 10:59 AM EDT INPATIENT DAILY PROGRESS NOTE Patient Name: Christy Ambrose Patient Age: 57 y.o. Birthdate: 1960 Admit date: 04/06/2018 Attending Physician: Chase Olvera MD ID: Christy Ambrose is a 57 y.o. male w/ renal transplant presented with massive bleeding from ruptured LUE mycotic AVF aneurysm s/p exploration, repair of AVF with patch angioplasty and forarm and hand fasciotomies. 24hr events: Yesterday had seizure activity with subsequent postictal state This morning much improved carrying on normal conversation though does have some lapses in memory such as not remembering his hometown Dressing change at bedside Open fasciotomies of forearm and hand with clean appearing wound base EEG shows diffuse slowing but no seizure activity O: Last value Range last 24hrs Temperature Temp: 37 ??C (98.6 ??F) Temp: [36.8 ??C (98.2 ??F)-37.6 ??C (99.7 ??F)] Heart Rate Heart Rate: 64 Heart Rate: [64-124] Blood Pressure BP: (!) 148/93 BP: (139-203)/(80-122) Respiratory Rate Resp: 12 Resp: [12-24] SpO2 SpO2: 92 % SpO2: [61 %-98 %] 04/08 0701 - 04/09 0700 In: 1208 [I.V.:584] Out: 3425 [Urine:3425] Intake Output Net for admission + Physical Exam: General: NAD HEENT: normocephalic, anicteric sclerae CVS: RRR Pulm: breathing comfortably Abd: soft, non-tender, non-distended. Skin: warm, dry Ext: LUE dressing taken down, fasciotomy sites appear clean and dry. Pos radial pulse signal. Good capillary refill. Able to wiggle fingers slightly. Wound base clean. Neuro: Grossly intact, nonfocal. Lines/Drains: Recent Labs 04/09/18 1003 04/09/18 0305 04/08/18 1045 04/08/18 0405 04/07/18 0555 04/07/18 0015 04/06/18 1740 04/06/18 1553 04/06/18 1315 WBC -- 8.1 -- 8.7 -- -- 8.6 10.3* 15.5* HGB -- 7.8* 7.2* 6.8* 7.2* 7.9* 7.8* 7.7* 11.5* HCT -- 22.8* 21.3* 20.4* 21.2* 23.1* 23.1* 23.2* 35.2* PLATELET -- 100* -- 94* -- -- 95* 96* 145 PT 47.7* -- 51.2* -- -- -- 24.1* 22.5* 29.1* INR 4.2 -- 4.5 -- -- -- 2.2 2.0 2.6 PTT 39* -- 38* -- -- -- 30 30 31 Recent Labs 04/09/18 0305 04/08/18 0405 04/07/18 0430 04/07/18 0015 04/06/18 1740 04/06/18 1315 NA 146* 144 143 143 145 140 K 4.9 5.4* 5.4* 6.1* 5.2* 5.2* CL 110* 115* 116* 117* 118* 116* CO2 21* 16* 16* 15* 16* 15* BUN 44* 47* 50* 48* 45* 39* CREATININE 3.00* 2.93* 2.68* 2.58* 2.48* 2.01* GLUCOSE 122 120 124 167 -- 219* CALCIUM 7.7* 7.1* 7.0* 6.8* 6.7* 4.9* MAGNESIUM -- -- -- -- 0.60* -- PHOS -- -- -- -- 3.3 -- Other Labs: Imaging: Micro: ASSESSMENT: Christy Ambrose is a 57 y.o. male w/ renal transplant presented with massive bleeding andPEA arrest on 04/06 from ruptured LUE mycotic AVF aneurysm s/p exploration, repair of AVF with patchangioplasty and forarm and hand fasciotomies. Open wounds of the forearm and hand appear clean withno drainage or surrounding erythema. The patient has a palpable radial pulse. We had plan to take the patient back to the OR yesterday for possible closure. Unfortunately the patient did have seizureactivity. Patient at this point appears much improved. We will tentatively plan to take the patientback to the OR on Wednesday for partial closure. We will continue with daily dressing changes. PLAN: - Plan for return to OR Wednesday for washout, debridement, and partial closure - Daily dressing change by Vascular - Appreciate transplant nephrology assistance as well as neurology in seizure management Odalis Castanon MD/NEHA, PGY-5 Section of Vascular Surgery, Pager [phone] * Alfonzo Miles MD - 04/08/2018 4:56 PM EDT Neurology Attending I have personally reviewed the EEG. It shows mild to moderate generalized slowing and moderate lefttemporal slowing. No epileptic abnormalities are seen associated with the patient's muscle twitches, or any other time. However these muscle twitches are small enough that the possibility of focal motor seizures is not ruled out. Findings discussed with Dr. Collins. continuous video EEG monitoringwill be initiated. Alfonzo Miles MD [place] [address] Pager: [phone], #[phone] Email: [email or web address] * Sharmin Barth, RN - 04/08/2018 12:34 PM EDT [facility] TEAM NOTE Name: Christy Ginna Ambrose Age: 57 y.o. Sex; Male Date of : 1960 Responding Members: JUAN F, BENJAMIN, SHELDON Date/Time of Admission: 04/06/2018 12:58 PM Unit/Room: 427 4W Service: Vascular sx Attending: [employer] Operations Manager present? Yes Attending Contacted? Yes Time Activated: 1136 Time Arrived: 1137 Time at bedside: 0130 Indication for Consult: Resp Distress SpO2 < 90% on FiO2 > 50% during seizure ASSESSMENT Brief 24 hr history: Pt transferred to PCU at ~10:30 from ICU 4S. Per RN, pt had seizure lasting approximately 2 minutes. During seizure pt became hypoxic with SpO2 dropping down into 50's. NRB mask 10L was applied and pt SpO2 returned to baseline. On arrival pt post ictal in bed. Pt opens eyes to repeated stimulation. Nods yes/no but does not follow commands. Moves extremities x4 spontaneously. Pt transitioned back down to 4L NC w/ no SOB or drop in SpO2. Neurology at bedside. Q1h neuro checksrequested. Pt transferred back to ICU. Code Status: Full Code RR:23 HR: 122 BP:172/89 Temperature : 37.6C SpO2:96 FiO2/Flow:10L Device: Non rebreather mask Breath Sounds:Coarse LOC:drowsy Skin: pale Laboratory: Lab Results Component Value Date WBC 8.7 04/08/2018 Hemoglobin 7.2 (L) 04/08/2018 Hematocrit 21.3 (L) 04/08/2018 Platelets 94 (L) 04/08/2018 INR 4.5 04/08/2018 PT 51.2 (H) 04/08/2018 PTT 38 (H) 04/08/2018 Potassium 5.4 (H) 04/08/2018 Calcium 7.1 (L) 04/08/2018 CO2 16 (L) 04/08/2018 BUN 47 (H) 04/08/2018 Creatinine 2.93 (H) 04/08/2018 PLAN / INTERVENTION Labs ordered: Kera level Tests ordered: eeg Interventions: oxygen, NRB 10L titrated down to 4L NC, medications administered were: neosynephrineand ativan/ keppra/ RBC and monitoring, Morgan continuous monitor Disposition: Transfer to Critical Care: ICUS 12:35 PM, April 08, 2018 SHARMIN BARTH RN, * Pearl Arnold OT - 04/08/2018 12:10 PM EDT Orders received. Chart reviewed, checked in with RN. Pt n/a for OT evaluation today. Plan for OR. Will hold & f/u Wednesday as appropriate. Negrita Arnold OT #[id number] * Veronica Holt RN - 04/08/2018 12:09 PM EDT At 1127, witnessed seizure, lasting approximately 2 mins. Pt desat from 100%, down to 80% and then down to 51%, NRB applied and recovered to 100% on the nonrebreather within 10 seconds. Turned on side. Tachycardic. HERT call initiated. Seizure pads applied. VSS currently on 3L NC. Unable to follow c ommands but still responding yes/no to simple questions. Blood started, temp prior to starting was 36.8C and after 15 min check was 37.6C. Per vascular MD, continue blood. Unable to get a reliable blood pressure on leg. Transfer to SICU 18, report called to SAVANNA Stevenson. * Clemencia Gonzalez, PT - 04/08/2018 11:03 AM EDT Physical Therapy Consult received, hx reviewed. Attempted to see pt for initial PT assessment. Per RN, pt await transfer to the OR, not currently appropriate for PT assessment. WIll defer at present and f.u post-op as appropriate. Please page me with any questions. Clemencia Gonzalez PT, MSPT Pager [phone] Inpatient Physical Therapy * Radha Hughes - 04/08/2018 9:52 AM EDT [facility] Transplant Nephrology Progress Note PATIENT: Christy Ambrose : 1960 REASON FOR CONSULTATION: Renal Tranasplant patient with CKD to assist in management of CKD and Immunosupression ID: Christy Ambrose is a 57 years old male with PMH of hypertension,prior TBI with epilepsy , gout,ESRD secondary to IgA nephropathy s/p donor renal transplant in 2002 (complicated by delayed graft function, recurrent IgA nephropathy and Prograf toxicity) on immunosuppression therapy (tacrolimusand CellCept), 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 Nephrology transplant team is consulted for assist in management of post transplant CKD patient and immunosuppression therapy. S: Seen and examined this morning.Having jerky head/neck movements.still confused.got 1unit of PRBCs this morning for hgb<7.Still unable to answer questions with words.Transferred to floor from ICU.Had good urine out put yesterday around 1400cc.Urine is more pinkish red colour today Past Medical History: Diagnosis Date ??? BP (high blood pressure) ??? DVT (deep venous thrombosis) ??? Gout ??? Hypertension ??? Kidney problem ??? Pneumonia ??? TBI (traumatic brain injury) 1979 MEDICATIONS: . Scheduled Meds: ??? levETIRAcetam 500 mg Oral Daily ??? levETIRAcetam 250 mg Oral Daily ??? levothyroxine 88 mcg Oral QAM ??? pantoprazole 20 mg Oral BID ??? allopurinol 150 mg Oral Daily ??? docusate sodium 100 mg Oral BID ??? metoprolol tartrate 25 mg Oral 2 times per day ??? ceFAZolin 2 g Intravenous Q8H ??? chlorhexidine 15 mL Oral BID ??? sodium chloride 0.9 % 5 mL Intravenous Q12H ??? acetaminophen 1,000 mg Oral Q8H EDWARD ??? tacrolimus 1 mg Oral BID ??? mycophenolate 250 mg Oral BID Continuous Infusions: ??? 1/2 NS with Custom Additives 50 mL/hr at 04/07/18 1739 PRN Meds:.HYDROmorphone, ondansetron, sodium chloride 0.9 %, lidocaine, hydrALAZINE, labetalol PHYSICAL EXAM: Last value Range last 24 hrs Temperature Temp: 37.1 ??C (98.8 ??F) Temp: [36 ??C (96.8 ??F)-37.2 ??C (99 ??F)] Heart Rate Heart Rate: 89 Heart Rate: [70-98] Blood Pressure BP: (!) 154/95 BP: (124-154)/(81-101) Respiratory Rate Resp: 14 Resp: [10-20] SpO2 SpO2: 97 % SpO2: [87 %-99 %] Appearance - Alert, Confused. Skin - No exanthem. HEENT - Sclera white. Mucous membranes moist. Chest:. Lungs clear to ausculatation w/o wheezes/ rhonchi/ crackles. Heart - S1 and S2 clear w/o murmur, gallop, or rub. JVP not elevated. Abd - Soft. + BS. No bruit. Non tender. Ext -Left UE AVF site with dressing and also with GIANNI Wrap.Lower extremities no edema, no cyanosis.Peripheral pulses felt bilaterally and equal. Neuro - awake,confused,trouble answering questions and having word finding difficulty.Having intermittent jerky movements of his head/neck STUDIES: Labs: CBC: Recent Labs 04/08/18 0405 04/07/18 0555 04/07/18 0015 04/06/18 1740 04/06/18 1553 WBC 8.7 -- -- 8.6 10.3* HGB 6.8* 7.2* 7.9* 7.8* 7.7* PLATELET 94* -- -- 95* 96* Chemistry: Recent Labs 04/08/18 0405 04/07/18 0430 04/07/18 0015 NA 144 143 143 K 5.4* 5.4* 6.1* CL 115* 116* 117* CO2 16* 16* 15* BUN 47* 50* 48* CREATININE 2.93* 2.68* 2.58* GLUCOSE 120 124 167 Recent Labs 04/08/18 0405 04/07/18 0430 04/07/18 0015 04/06/18 1740 09/23/17 1101 06/28/17 0859 CALCIUM 7.1* 7.0* 6.8* 6.7* < > 8.4* 8.4* MAGNESIUM -- -- -- 0.60* -- 0.76 0.82 PHOS -- -- -- 3.3 -- 3.9 4.4 < > = values in this interval not displayed. LFT's: Recent Labs 04/06/18 1740 09/23/17 1101 06/28/17 0859 BILITOT 0.3 0.4 0.3 ALBUMIN 2.3* 4.3 4.2 ALKPHOS 57 104 116 ALT 20 11 11 AST 22 23 19 Results for RIZWANA AMBROSEMaty Chacko ( ) as of 04/07/2018 08:37 Ref. Range 04/06/2018 13:25 Color UA Latest Ref Range: Yellow Yellow Appearance UA Latest Ref Range: Clear Hazy (A) Spec Snow Shoe UA Latest Ref Range: 1.002 - 1.030 1.023 pH UA Latest Ref Range: 5.0 - 8.0 6.0 Protein UA Latest Ref Range: Negative mg/dL >=500 (A) Glucose UA Latest Ref Range: Negative mg/dL 50 (A) Ketones UA Latest Ref Range: Negative mg/dL Negative Bilirubin UA Latest Ref Range: Negative mg/dL Negative Urobilinogen UA Latest Ref Range: Normal mg/dL Normal Blood UA Latest Ref Range: Negative mg/dL Small (A) Leukocytes UA Latest Ref Range: Negative mcL Negative Nitrite UA Latest Ref Range: Negative Negative WBC UA Latest Ref Range: 0 - 3 /HPF 8 (H) RBC UA Latest Ref Range: 0 - 3 /HPF 21 (H) Gran Cast UA Latest Ref Range: <=0 /LPF 1 (H) Bacteria UA Latest Ref Range: None /HPF Occasional (A) Squam Epith UA Latest Ref Range: <=4 /HPF 1 Culture Reflexed Unknown No CXray 04/06/18: IMPRESSION Prominence of the superior mediastinum may be due to technique. The presence of a mediastinal hematoma is not excluded with this study. Opacity in the medial right lung base may be due to atelectasis, pneumonia, aspiration or contusion. There is contrast material in the bladder suggesting that this patient may have had a prior CT scan today. Intake/Output Summary (Last 24 hours) at 04/07/18 0851 Last data filed at 04/07/18 0800 Gross per 24 hour Intake 7448 ml Output 2450 ml Net 4998 ml Procedure:04/06/18 -Exploration of LUE AVF, repair of AVF, brachial artery patch angioplasty -Axillary venous phlebotomy -Forearm and hand fasciotomies Left KIdneySpecimen pathology:05/31 ?Specimen: ??Left radicalKidney ?Tumor ?Histologic Type: ?? 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 Histologic Type Comments: ?? Overlapping features of both Type 1 and Type 2 ?papillary RCC are present. (See Discussion) ?Histologic Grade (WHO / ISUP Grade): ?G3 ?Tumor Size: ?? 4.9 Centimeters (cm) ?Tumor Focality: ?? Multifocal ?Tumor Extent ? Anatomic Extent of Tumor: ?? Tumor limited to kidney ?Accessory Tumor Findings ? Sarcomatoid Features: ?? Not identified ? Rhabdoid Features: ?? Not identified ? Tumor Necrosis: ?? Not identified ? Lymphovascular Invasion: ?? Not identified ?Margins: ??Uninvolved by invasive carcinoma Lymph Nodes ?Regional Lymph Nodes: ?? No lymph nodes submitted or found MRI brain w/o contrast:04/07/18: Multiple areas of acute ischemia, primarily cortical, likely reflecting mild hypoxic ischemic injury. ?? 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 -Recommended to give IVF with bicarbonate for acidosis -Hypocalcemia -Corrected calcium is still low.Recommended to give IV calcium gluconate as needed -Blood loss anemia-transfuse PRBCs to keep Hgb around 8-10 for better renal and cerebral perfusion.Give lasix 40 mg IV before and in between transfusions -Avoid any nephrotoxins -Strict intake and out put monitoring -Daily weights -Renal dosing for medications Immuno suppression: Continue prograf 1mg PO BID-pending trough levels .Last Prograf level was 5.5 in september 2017. If need to change fromPO to IV prograf the dose has to be 1/3 rd of PO dose and has to be given over a period of 20 hrs,off for 4 hrs Daily.Check trough levels 30 min-1hr prior to next dose Conitnue Cellcept 250 mg PO BID.If can not take PO,can change to 250 mg IV BID #2.Hyperkalemia-if persistent ,can give lasix iv and or kayexalate to improve K levels if no contraindications.Check repeat CPK levels to evaluate any rhabdomyolysis contributing for hyperkalemia.Give lasix IV for edema which also improved potassium levels #3.Non AGAP Metabolic Acidosis:Lactic acidosis improved.Was on sodium bicarb Po 650 TID at home forhis chronic metabolic acidosis form his renal failure.Recommended to change maintananace IVF to 1/2NS with 75 Meq of bicarb(1.5 amps) and resume PO bicarb home dose once he can take PO .Monitor BMP.Can give IV bicarb as needed. #4.Hypertension:Was on hydralazine 50 mg BID,diltiazem 120 mg XT daily ,metorpolol 50 mg TID,losartan 25 mg daily at home.Hold losartan for now until K levels better.BP elevated.Recommned to increasethe dose of metoprolol and resume home meds as tolerated to keep BP stable .currently on [id number] mg BID and hydralazine,labetolol IV prn #5.Ruptured Left UE AVF and compartment syndrome of L Forearm: s/p exploration,brachial artery patch angioplasty,forearm and hand fasciotomies on 04/06/18.Vascular planning for washout and possible closure soon #6.Metabolic encephalopathy with underlying TBI: Possible anoxic brain injury from his PEA cardiac arrest.CT head per report no acute intracranial abnormality,underlying left Temporal lobe post traumatic encephalomalacic changes.MRI brain findings as above.Appreciate neurology evaluation.Check keppra levels. Thanks for letting us participate in the care of this patient. Call with questions. Seen and Discussed w/ Addendum: Patient seen again while he had seizure.More confused and getting evaluated by neurology team.Discussed with vascular,neurology teams Radha Hughes MD Nephrology Fellow #[id number] * Veronica Holt RN - 04/08/2018 9:47 AM EDT [facility], disoriented to time place and situation. Able to say yes orno in response to questions. Right arm infiltrate from IV suspected. Vascular surgery notified not observable facial repetitive jerking. Unable to follow commands. VSS on RA. Will continue to monitor and assess. * Sabrina Armas MD - 04/07/2018 8:27 AM EDT TRAUMA & ACUTE SURGICAL CARE SERVICE TERTIARY SURVEY ID/MECHANISM OF INJURY: Christy Ambrose is a 57 y.o. Male s/p found down with hemorrhagic shock and PEA arrest from LUE AV fistula bleeding with the following injuries: Injury Intervention Follow-up BRAIN: none n/a n/a SPINE: none n/a n/a FACE: none n/a n/a PULM: none n/a n/a ABD: none n/a n/a EXTR: 1. LUE AV fistula aneurysm w hemorrhage 2. Compartment syndrome L forearm & hand Vascular consult S/p OR fistula repair and fasciotomies 04/06 As directed by Vascular Service LACERATIONS/ABRASIONS: none n/a n/a HISTORY OF PRESENT ILLNESS: Christy Ambrose is a 57 y.o. 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 Description of events leading up to injury includes: pt had called his mother earlier today to report leaking from his LUE AVF site. EMS arrived and found pt in a pool of blood in bathroom, pulseless and unresponsive. Performed several rounds of compressions and epi with ROSC. Tourniquets applied in field at approx 10 AM. Pt intubated in field. Pt taken to [facility], where second tourniquet applied and pt received 6U PRBC. Transferred to [facility] for further care. ?? Of note, per Dr. Olvera note from September 2017, pt has had issues with L AVF previously, requiringrevision due to massive size. ?? Primary survey revealed: airway secured w 7-5 ETT at 25 cm at lips, equal breath sounds/respirations, present 2+ peripheral pulses in RUE and BLE with stable vital signs and no signs of bleeding, GCS11T (6 - Follows simple motor commands, 1 - Makes no noise, 4 - Opens eyes on own), and complete exposure. Secondary survey revealed: two tourniquets in L upper arm, blister formation on skin between tourniquets, no motor or sensory function in LUE distal to tourniquets, swollen and necrotic fistula in L antecubital fossa PMHx: Past Medical History: Diagnosis Date ??? BP (high blood pressure) ??? DVT (deep venous thrombosis) ??? Gout ??? Hypertension ??? Kidney problem ??? Pneumonia ??? TBI (traumatic brain injury) 1980 PSHx: Past Surgical History: Procedure Laterality Date ??? CREATED BY INTERFACE Entered not Verified Procedure Date: 09/19/2010 ??? KIDNEY TRANSPLANT KIDNEY TRANSPLANT / RECIPIENT/LT Procedure Date: 11/26/2002 ? ? PRO DEBRIDEMENT SUBCUTANEOUS TISSUE 20 SQCM/< Left 02/20/2016 DEBRIDEMENT SKIN AND SUBCU, HEAD/NECK performed by Miguel Angel Moreno MD at [facility] OR ??? PRO DECOMPRESS FOREARM, BRACH ART EXPLOR Left 04/06/2018 FASCIOTOMY, FOREARM, WITH BRACHIAL ARTERY EXPLORATION (WRVU 8.41) performed by Lida Peter MDat [facility] OR ??? PRO DIRECT REPAIR RUPTURED ANEURYSM, AXILLO-BRACHIAL ARM INCIS Left 04/06/2018 @REPAIR, RUPTURED AXILLARY OR BRACHIAL ARTERY ANEURYSM BY ARM INCISION (WRVU *) performed by Lida Peter MD at [facility] OR ??? PRO EXC PAROTD, TOTAL, UNILAT RAD NECK Left 02/05/2016 @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, TOTAL, WITH UNILATERAL RADICAL NECK DISSECTION performed by Miguel Angel Moreno MD at [facility] OR ??? PRO EXC SKIN MALIG 3.1-4CM FACE, FACIAL Left 02/05/2016 EXC MALIGNANT LESION, 3.1 TO 4.0CM, FACE performed by Miguel Angel Moreno MD at [facility] OR ? ? PRO EXC SKIN MALIG >4CM TRUNK, ARM, LEG 04/19/2012 EXC MALIGNANT LESION, MICHAEL > 4.0CM, TRUNK performed by SABRINA MEDRANO at [facility] OR ??? PRO LAP, RADICAL NEPHRECTOMY Left 05/31/2017 @LAPAROSCOPY, RADICAL NEPHRECTOMY (WRVU 25.06) performed by Jax Mills MD at [facility] OR ??? PRO REBL VES GRAFT, UP EXTREM Left 04/06/2018 REPAIR BLOOD VESSEL WITH GRAFT OTHER THAN VEIN, UPPER EXTREMITY (WRVU 15.83) performed by Lida Peter MD at [facility] OR ??? PRO RELIEVE PRESSURE ON NERVE(S) Left 04/06/2018 (MSURG) CARPAL TUNNEL (WRVU 4.82) performed by Hay Sparks MD at [facility] OR ??? PRO REPAIR INTERMEDIATE S/A/T/E 2.6-7.5 CM 04/19/2012 REPAIR INTERMEDIATE WOUND, (NO HANDS OR FEET) 2.6 TO 7.5CM, UPPER EXTREMITY performed by SABRINA MEDRANO at [facility] OR ??? PRO REVISE MEDIAN N/CARPAL TUNNEL SURG Left 04/06/2018 MEDIAN NERVE DECOMPRESSION (CARPAL TUNNEL RELEASE) (WRVU 4.97) performed by Lida Peter MD [facility] OR ? ? PRO SPLIT GRFT, HEAD, FAC, HAND, FEET <100SQCM N/A 02/20/2016 SPLIT THICKNESS SKIN SPLIT GRAFT,100SQ CM OR LESS, NECK performed by Miguel Angel Moreno MD at [facility] OR ??? PRO UPPER GI ENDOSCOPY, BIOPSY N/A 05/13/2017 EGD WITH BIOPSY (WRVU 2.49) performed by Aditya Barrera MD at [facility] ENDOSCOPY ??? PRO VASCULAR SURGERY PROCEDURE UNLIST Left 11/20/2015 LIGATION\REPAIR AV FISTULA performed by Camilo Ireland MD at [facility] OR ??? PRO VASCULAR SURGERY PROCEDURE UNLIST Left 11/20/2015 EXCISION VEIN FROM HAND performed by Camilo Ireland MD at [facility] OR ??? US RENAL TRANSPLANT BIOPSY 12/31/2010 HOME MEDICATIONS: (reviewed on phone w nurse from pt's PCP office) Prescriptions Prior to Admission Medication Sig Dispense Refill Last Dose ??? tacrolimus (PROGRAF) 1 mg Capsule Take 1 capsule twice daily. Kidney transplant 11/26/2002. ICD code Z94.0 60 capsule 5 ??? allopurinol (ZYLOPRIM) 100 mg Tablet Take 1 and 1/2 tablet daily. 45 tablet 11 ??? hydrALAZINE (APRESOLINE) 50 mg Tablet Take 1 tablet by mouth 2 times daily. 180 tablet 3 ??? metoprolol tartrate (LOPRESSOR) 50 mg Tablet Take half a pill 3 times a day (Patient taking differently: 50 mg 3 times daily.) 180 tablet 11 ??? levETIRAcetam (KEPPRA) 500 mg Tablet Take 1 pill in a.m. and half a pill in p.m. 45 tablet 11 ??? pantoprazole (PROTONIX) 20 mg Tablet, Delayed Release (E.C.) Take 1 tablet by mouth 2 times daily. 180 tablet 3 ??? sodium bicarbonate 650 mg Tablet Take 1 tablet by mouth 3 times daily. 270 tablet 3 Taking ??? losartan (COZAAR) 25 mg Tablet Take 1 tablet by mouth every morning. 90 tablet 3 Taking ??? acetaminophen (TYLENOL) 500 mg Tablet Take 2 tablets by mouth every 6 hours as needed for Pain.Do not exceed 4000 mg per 24 hours. Taking ??? warfarin (COUMADIN) 5 mg Tablet Take 1 tablet (5 mg) by mouth daily. PLEASE RESTART THIS MEDICINE ON 06/07. GO FOR INR ON 06/08. FOLLOW UP WITH DR GARCIA'S OFFICE. Taking ??? dilTIAZem (CARTIA XT) 120 mg Capsule, Sust. Release 24 hr Take 1 capsule by mouth daily. 90 capsule 3 Taking ??? mycophenolate (CELLCEPT) 250 mg Capsule Take 1 capsule by mouth 2 times daily. Kidney Transplant Z94.0. Transplant Date; 11-26-02 180 capsule 11 Taking ??? multivitamin Capsule Take 1 capsule by mouth daily. Taking ??? levothyroxine (SYNTHROID) 88 mcg tablet Take 88 mcg by mouth daily. Taking ??? cholecalciferol, Vitamin D3, 50,000 unit Capsule Take 1 capsule by mouth once a week. 12 capsule 3 ??? [DISCONTINUED] metroNIDAZOLE (METROCREAM) 0.75 % Cream Apply topically to face twice daily as needed. 45 g 0 ??? docusate sodium (COLACE) 100 mg Capsule Take 1 capsule by mouth 2 times daily as needed for Constipation. Taking CURRENT MEDICATIONS: ??? HYDROmorphone (DILAUDID) injection 0.3 mg ??? levETIRAcetam (KEPPRA) tablet 500 mg ??? levETIRAcetam (KEPPRA) tablet 250 mg ??? [START ON 04/08/2018] levothyroxine (SYNTHROID) tablet 88 mcg ??? pantoprazole (PROTONIX) tablet 20 mg ??? allopurinol (ZYLOPRIM) tablet 150 mg ??? lactated Ringers infusion ??? docusate sodium (COLACE) capsule 100 mg ??? metoprolol tartrate (LOPRESSOR) tablet 25 mg ??? ceFAZolin (ANCEF) 2g in dextrose 5% 100 mL ??? ondansetron (ZOFRAN) injection 4 mg ??? chlorhexidine (PERIDEX) 0.12 % oral solution 15 mL ??? sodium chloride 0.9 % flush 5 mL ??? sodium chloride 0.9 % flush 5-20 mL ??? lidocaine (XYLOCAINE) 10 mg/mL (1 %) injection 3 mg ??? acetaminophen (TYLENOL) tablet 1,000 mg OR [DISCONTINUED] acetaminophen (TYLENOL) 650 mg/20.3 mL oral liquid 1,000 mg OR [DISCONTINUED] acetaminophen (TYLENOL) suppository 975 mg ??? tacrolimus (PROGRAF) capsule 1 mg ??? mycophenolate (CELLCEPT) capsule 250 mg ??? hydrALAZINE (APRESOLINE) injection 10 mg ??? labetalol (NORMODYNE,TRANDATE) injection 20 mg HYDROmorphone, ondansetron, sodium chloride 0.9 %, lidocaine, hydrALAZINE, labetalol ALLERGIES: Allergies Allergen Reactions ??? Benazepril Hcl ??? Codeine Other (See Comments) Patient does not know reaction ??? Hydrochlorothiazide ??? Pollen Extracts Sneezing/runny nose FAMILY HISTORY: is non-contributory SOCIAL HISTORY: Social History Social History ??? Marital status: Single Spouse name: N/A ??? Number of children: N/A ??? 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 Smoking status: Former Smoker Packs/day: 0.25 Years: 1.50 Types: Cigarettes Quit date: 12/03/2000 ??? Smokeless tobacco: Former User Quit date: 04/14/2001 ??? Alcohol use No ??? Drug use: No Comment: havent in /1995 ??? Sexual activity: Not on file Comment: Deferred Other Topics Concern ??? Not on file Social History Narrative REVIEW OF SYSTEMS: complete 10 system ROS performed with pertinent findings below. Pertinent items are noted in HPI. PHYSICAL EXAM: VITALS: Last value Range last 24 hrs Temperature Temp: 36 ??C (96.8 ??F) Temp: [34.6 ??C (94.3 ??F)-36.9 ??C (98.4 ??F)] Heart Rate Heart Rate: 77 Heart Rate: [55-91] Blood Pressure BP: 102/73 BP: -- Respiratory Rate Resp: 19 Resp: [10-21] SpO2 SpO2: 94 % SpO2: [90 %-100 %] I/O last 3 completed shifts: In: 7220 [I.V.:6544; Blood:676] Out: 2350 [Urine:1350; Blood:1000] Body mass index is 28.91 kg/(m^2). within normal limits GENERAL: Alert, awake and in no apparent distress HEAD: Normocephalic, atraumatic FACE: Pupils/eyes: Equal round and reactive to light, no orbital or periorbital ecchymosis or edema. No scleral icterus, subconjunctival hemorrhage, no injection. EOMs intact Ears: symmetrical Midface: No tenderness, no edema no contusions, no lacerations or abrasions over the midface. No rhinorrhea Oropharynx: Nonbloody, moist mucous membranes noted, no lacerations, no malocclusions. NECK: Supple, trachea midline, no masses, no edema, no contusions or abrasions, no obvious JVD. C-collar in place LUNGS: Equal, clear breath sounds bilaterally without crepitus, no obvious deformities of the chest, no paroxysmal movements, no use of accessory muscles for breathing CARDIAC: Regular rate and rhythm without murmur or extra heart sounds, S1-S2 ABDOMEN/GI: Soft, nontender, nondistended, no abrasions or contusions, no hernias or scars. Withoutobvious ascites PELVIS: Stable to iliac and anterior/posterior manipulation. RECTAL: Deferred EXT: LUE = blisters in L upper arm at prior tourniquet site; post operative open fasciotomy site inforearm/hand; no motor or sensation in hand; dopplerable radial and ulnar pulses; RUE and BLE = Normal and symmetric movement, normal range of motion, no edema, distal CMS intact ??4; capillary refill less than 3 seconds and pedal/radial pulses intact. SKIN: Aside from LUE findings noted above, no lacerations, abrasions or contusions on complete anterior and posterior skin exam. NEURO: Mental Status: Awake and alert to person and place and time, difficulty with naming Cranial Nerves: CN II-XII intact Motor: No obvious tics or tremors. Normal 5/5 strength in all tested muscle groups outside of LUE. Sensory: Intact to touch outside of LUE SPINE: No step-off, tenderness midline or paraspinal, edema or eccymosis over cervical,thoracic or lumbar spines GCS: 14 (6 - Follows simple motor commands, 4 - Seems confused, disoriented, 4 - Opens eyes on own) LABORATORY: Recent Labs 04/07/18 0555 04/07/18 0015 04/06/18 1740 04/06/18 1553 04/06/18 1315 WBC -- -- 8.6 10.3* 15.5* HGB 7.2* 7.9* 7.8* 7.7* 11.5* HCT 21.2* 23.1* 23.1* 23.2* 35.2* PLATELET -- -- 95* 96* 145 PT -- -- 24.1* 22.5* 29.1* INR -- -- 2.2 2.0 2.6 PTT -- -- 30 30 31 Recent Labs 04/07/18 0430 04/07/18 0015 04/06/18 1740 04/06/18 1315 NA 143 143 145 140 K 5.4* 6.1* 5.2* 5.2* CL 116* 117* 118* 116* CO2 16* 15* 16* 15* BUN 50* 48* 45* 39* CREATININE 2.68* 2.58* 2.48* 2.01* GLUCOSE 124 167 -- 219* CALCIUM 7.0* 6.8* 6.7* 4.9* MAGNESIUM -- -- 0.60* -- PHOS -- -- 3.3 -- RADIOLOGY: (include date, findings, and impression) CXR & Pelvis 04/06: Prominence of the superior mediastinum may be due to technique. The presence of a mediastinal hematoma is not excluded with this study. Opacity in the medial right lung base may be due to atelectasis, pneumonia, aspiration or contusion. There is contrast material in the bladder suggesting that this patient may have had a prior CT scan today. CT Head & C-Spine, 2nd read, 04/06: CT cervical spine: No fracture. CT HEAD: No acute intracranial abnormality. Question posttraumatic changes with encephalomalacic changes left anterior temporal lobe. Asymmetric low-attenuation periventricular white matter left greater than right and subtle evidence of volume loss in the left hemisphere raise the question of ischemic change on the left related to left-sided carotid disease. Clinical correlation recommended. CT Abd/pelvis, 2nd read, 04/06: IMPRESSION 1. IMPRESSION: No acute injury of the visualized vascular structures. 2. No abdominal solid organ injury. No pneumothorax. CT T&L Spine, 2nd read, 04/06: IMPRESSION No acute fracture or traumatic malalignment of the thoracic or lumbar spine. ASSESSMENT/SUMMARY OF INJURIES: 57 y.o. male w hx of IgA nephropathy s/p donor renal transplant 2002 (on tacrolimus and cellcept) complicated by delayed graft function and recurrent IgA nephropathy and Prograf toxicity, laparoscopic L radical nephrectomy May 2017 for papillary carcinoma, HTN, epilepsy, and prior TBI who presents to [facility] s/p hemorrhagic shock and PEA arrest from bleeding LUE AV fistula. Now POD1 s/p fistula repair and L forearm and hand fasciotomies with Vascular. Pt doing well postop, but his mental status remains somewhat off from baseline; attentive and responds appropriately to questions but signficant word-finding difficulties; with L hemispheric ischemia noted on CT and corresponding aphasiaissues, would consider Neuro consult or MRI; pt may have sustained anoxic injury during PEA arrest.C, T, and L spine cleared. Trauma to sign off; further care per primary Vascular team. Please page #[phone] for any further questions or concerns. Procedures: -Exploration of LUE AVF, repair of AVF, brachial artery patch angioplasty - 04/06 -Axillary venous phlebotomy - 04/06 -Forearm and hand fasciotomies - 04/06 Injuries include: 1. Bleeding LUE AV fistula 2. Compartment syndrome L forearm Injuries identified on Tertiary Survey: 1. None PLAN: NEURO: - analgesia: per primary team - AED: continue home levetiracetam - recommend MRI and or Neuro consult for question of L hemispheric ischemia SPINE: - C spine clear - T and L spine clear - No spine restrictions; activity as tolerated PULM: - O2 to maintain >92% - Monitor for s/s of pneumonia given R lung CXR findings; no current clinical evidence of PNA CARDIAC: - continue home metoprolol FEN/GI: - mIVF and diet per primary team - NBO: docusate RENAL: - monitor Cr - continue home mycophenolate and tacrolimus - transplant aware of pt hospitalization HEME: - anemia: significant drop in Hgb from admission but stable over serial H&H; no additional source of bleeding - monitor mild thrombocytopenia MSK: - fasciotomies L forearm: return to OR as per Vascular for washout ID: - abx: cefazolin 04/07- - monitor fever curve LINES: - Peraza 04/06 - R radial art line 04/06 - PIV x2 PROPHYLAXIS -DVT prophylaxis: SCDs, no chemoprophylaxis given recent bleed -GI prophylaxis: pantoprazole CONSULTS: none DISPO: vascular floor CODE: FULL Incidental Findings: -none Sabrina Armas MD 04/07/2018 Trauma pager [phone] * Apple Gutierrez MD - 04/07/2018 6:59 AM EDT INPATIENT DAILY PROGRESS NOTE Patient Name: Christy Ambrose Patient Age: 57 y.o. Birthdate: 1960 Admit date: 04/06/2018 Attending Physician: Lida Peter MD ID: Christy Ambrose is a 57 y.o. male w/ renal transplant presented with massive bleeding from ruptured LUE mycotic AVF aneurysm s/p exploration, repair of AVF with patch angioplasty and forarm and hand fasciotomies. 24hr events: Hemodynamically normal in the ICU. On room air. Stable Hgb. Normal lactate. Pain adequately controlled. O: Last value Range last 24hrs Temperature Temp: 36.8 ??C (98.2 ??F) Temp: [34.6 ??C (94.3 ??F)-36.9 ??C (98.4 ??F)] Heart Rate Heart Rate: 85 Heart Rate: [55-85] Blood Pressure BP: 102/73 BP: (102-130)/(73-102) Respiratory Rate Resp: 17 Resp: [10-21] SpO2 SpO2: 95 % SpO2: [94 %-100 %] 04/06 0701 - 04/07 0700 In: 7220 [I.V.:6544] Out: 2350 [Urine:1350] Intake Output Net for admission + Physical Exam: General: NAD HEENT: normocephalic, anicteric sclerae CVS: RRR Pulm: breathing comfortably Abd: soft, non-tender, non-distended. Skin: warm, dry Ext: LUE dressing taken down, fasciotomy sites appear clean and dry. Pos radial pulse signal. Good capillary refill. Able to wiggle fingers slightly. Neuro: Grossly intact, nonfocal. Lines/Drains: Recent Labs 04/07/18 0555 04/07/18 0015 04/06/18 1740 04/06/18 1553 04/06/18 1315 WBC -- -- 8.6 10.3* 15.5* HGB 7.2* 7.9* 7.8* 7.7* 11.5* HCT 21.2* 23.1* 23.1* 23.2* 35.2* PLATELET -- -- 95* 96* 145 PT -- -- 24.1* 22.5* 29.1* INR -- -- 2.2 2.0 2.6 PTT -- -- 30 30 31 Recent Labs 04/07/18 0430 04/07/18 0015 04/06/18 1740 04/06/18 1315 NA 143 143 145 140 K 5.4* 6.1* 5.2* 5.2* CL 116* 117* 118* 116* CO2 16* 15* 16* 15* BUN 50* 48* 45* 39* CREATININE 2.68* 2.58* 2.48* 2.01* GLUCOSE 124 167 -- 219* CALCIUM 7.0* 6.8* 6.7* 4.9* MAGNESIUM -- -- 0.60* -- PHOS -- -- 3.3 -- Other Labs: Imaging: Micro: ASSESSMENT: Christy Ambrose is a 57 y.o. male w/ renal transplant presented with massive bleeding andPEA arrest on 04/06 from ruptured LUE mycotic AVF aneurysm s/p exploration, repair of AVF with patchangioplasty and forarm and hand fasciotomies. PLAN: - Regular diet. NPO after midnight - Plan for return to OR tomorrow for washout, debridement, and possible closure. - Daily dressing change by Vascular - Please contact Renal Transplant re mgmt of immunosuppressive meds. - Appreciate Trauma recs re trauma workup and cervical spine clearance. - Transfer to floor on tele due to hyperkalemia Apple Gutierrez MD PGY4 General Surgery * Evelin Callejas RN - 04/06/2018 9:30 PM EDT 2129: RN spoke with patient's mother regarding his normal mentation due to history of previous TBI.Mother states he has no residual effects from his TBI at age 18. She stated the only thing, may be that he sometimes is a little slow getting words out. She states he would normally know where he was, what happened, and the date. CCS and Trauma MDs advised. * Selma Vieira RN - 04/06/2018 6:40 PM EDT Pt arrived to SICU 18, placed on monitor. PIV flushed. Focused assessment completed, of note left arm in an gianni bandage with open fasciotomy underneath, a small incision noted in the axilla with glueto the cite. Pt noted to awaken, follow commands, flipped to PS/CPAP on the vent, sedation was not started per Dr. Friedman at bedside for possible extubation. Pt turned and repositioned utilizing PS/CPAP given completed bath with chlorhexidine. VSS remain stable, pt noted to be in SB with occasional PAC's. Awaiting to hear from CT for ordered testing. 1900: Report to oncoming shift, care of the patient turned over at this time. * Isidoro Charles RCP - 04/06/2018 5:37 PM EDT AMV Protocol: Yes SBT Protocol: Yes Vent Settings: Servo I Ventilator Mode: SIMV Vol + PS Tidal Volume Set: 500 Resp Rate Set: 18 PEEP Set: 5 FiO2: 50 % PSV: 10 Ventilator Measurements: Resp: 18 Vt Exhaled: 502 PIP: 20 Vt Spontaneous: 0 MAP: 9.2 Plateau Press: 15 Ve: 9 PEEP: 6 cmH20 SpO2: 97 % EtCO2: 32 mmHg Airway: 7.5 @ 24 cm at the Teeth. Skin Integrity: WDL Breath Sounds: Clear Secretions: Suction not required Assessment / Events / Plan of the Day: Received trauma pt from OR on above settings at approximately 1700 post surgery to control bleeding from LUE. PEA arrest in field. Last gas in OR @ 1513 7.18/40/228/14.8 Pt is planned to return to OR potentially tomorrow or next day. Manage in AMV protocol and SBT. Isidoro Charles RCP documented in this encounter H&P Notes * Kelsey Zimmerman RN - 04/09/2018 11:32 PM EDT Pt alert and disoriented x3. Able to follow commands. Q4 neuro checks. Placed on 2L NC for desats into the 80s. HR NSR. PRN Hydralazine given x1 for SBP of 170. Peraza in place, adequate urine output.L arm dressing place, C/D/I. R arm infiltration site pale and tender to touch. Pt transferred to [facility] with all belongings. Report given to oncoming RN. * Natalya Minaya MD - 04/08/2018 12:59 PM EDT Critical Care - Admission Note History of Present Illness: Christy Ambrose is a 57 y/o M w/ PMH developmental delay, epilepsy, IGA nephropathy (s/p renal transplant 2002, on tac & mycophenalate) left cahto nephrectomy (2016), HTN who was found down on 04/06 at his home w/ bleeding from L AVF. He had PEA arrest, ROSC w/ chest compressions, 1 dose epi. Tourniquet applied to L arm in field, pt intubated and brought to [facility]. Received 6 units PRBC & transferred to [facility]. On arrival GCS 11, taken to OR w/ vascular for tourniquet take down, brachial artery patch angioplasty, L arm fasciotomy. ?? He was extubated that night and trauma able to clear his c-spine. He was monitored overnight and transferred to the floor 04/07. Today he had a planned return to OR for washout of left arm but had seizure activity on the floor approximately two minutes in length and associated desaturation, recovered quickly with NRB. Neurology was consulted and recommended giving 1 mg of ativan. He seized a second time and was transferred to a higher level of care for q1h neuro checks. Review of Systems: Per HPI Active Problem List: Patient Active Problem List Diagnosis Code ??? Epilepsy G40.909 ??? End stage renal disease N18.6 ??? Gout M10.9 ??? Hypertension I10 ??? Left leg DVT I82.402 ??? Kidney replaced by transplant Z94.0 ??? IgA nephropathy N02.8 ??? BCC (basal cell carcinoma of skin) C44.91 ??? Acne rosacea L71.9 ??? Nevus D22.9 ??? Rosacea L71.9 ??? Anticoagulated on Coumadin [...] N18.4 ??? 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 H/O kidney transplant Z94.0 ??? TRISTIAN (acute kidney injury) N17.9 ??? Weight loss R63.4 ??? Gastrointestinal hemorrhage K92.2 ??? Bradycardia R00.1 ??? Left renal mass N28.89 ??? Renal mass N28.89 ??? 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 Hemorrhagic shock R57.8 Past Medical History: Past Medical History: Diagnosis Date ??? BP (high blood pressure) ??? DVT (deep venous thrombosis) ??? Gout ??? Hypertension ??? Kidney problem ??? Pneumonia ??? TBI (traumatic brain injury) 1980 Past Surgical History: Past Surgical History: Procedure Laterality Date ??? CREATED BY INTERFACE Entered not Verified Procedure Date: 09/19/2010 ??? KIDNEY TRANSPLANT KIDNEY TRANSPLANT / RECIPIENT/LT Procedure Date: 11/26/2002 ? ? PRO DEBRIDEMENT SUBCUTANEOUS TISSUE 20 SQCM/< Left 02/20/2016 DEBRIDEMENT SKIN AND SUBCU, HEAD/NECK performed by Miguel Angel Moreno MD at [facility] MAIN OR ??? PRO DECOMPRESS FOREARM, BRACH ART EXPLOR Left 04/06/2018 FASCIOTOMY, FOREARM, WITH BRACHIAL ARTERY EXPLORATION (WRVU 8.41) performed by Lida Peter MDat [facility] MAIN OR ??? PRO DIRECT REPAIR RUPTURED ANEURYSM, AXILLO-BRACHIAL ARM INCIS Left 04/06/2018 @REPAIR, RUPTURED AXILLARY OR BRACHIAL ARTERY ANEURYSM BY ARM INCISION (WRVU *) performed by Lida Peter MD at [facility] MAIN OR ??? PRO EXC PAROTD, TOTAL, UNILAT RAD NECK Left 02/05/2016 @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, TOTAL, WITH UNILATERAL RADICAL NECK DISSECTION performed by Migule Angel Moreno MD at [facility] MAIN OR ??? PRO EXC SKIN MALIG 3.1-4CM FACE, FACIAL Left 02/05/2016 EXC MALIGNANT LESION, 3.1 TO 4.0CM, FACE performed by Miguel Angel Moreno MD at [facility] OR ? ? PRO EXC SKIN MALIG >4CM TRUNK, ARM, LEG 04/19/2012 EXC MALIGNANT LESION, MICHAEL > 4.0CM, TRUNK performed by SABRINA MEDRANO at [facility] OR ??? PRO LAP, RADICAL NEPHRECTOMY Left 05/31/2017 @LAPAROSCOPY, RADICAL NEPHRECTOMY (WRVU 25.06) performed by Jax Mills MD at [facility] OR ??? PRO REBL VES GRAFT, UP EXTREM Left 04/06/2018 REPAIR BLOOD VESSEL WITH GRAFT OTHER THAN VEIN, UPPER EXTREMITY (WRVU 15.83) performed by Lida Peter MD at [facility] OR ??? PRO RELIEVE PRESSURE ON NERVE(S) Left 04/06/2018 (MSURG) CARPAL TUNNEL (WRVU 4.82) performed by Hay Sparks MD at [facility] OR ??? PRO REPAIR INTERMEDIATE S/A/T/E 2.6-7.5 CM 04/19/2012 REPAIR INTERMEDIATE WOUND, (NO HANDS OR FEET) 2.6 TO 7.5CM, UPPER EXTREMITY performed by SABRINA MEDRANO at [facility] OR ??? PRO REVISE MEDIAN N/CARPAL TUNNEL SURG Left 04/06/2018 MEDIAN NERVE DECOMPRESSION (CARPAL TUNNEL RELEASE) (WRVU 4.97) performed by Lida Peter MD [facility] OR ? ? PRO SPLIT GRFT, HEAD, FAC, HAND, FEET <100SQCM N/A 02/20/2016 SPLIT THICKNESS SKIN SPLIT GRAFT,100SQ CM OR LESS, NECK performed by Miguel Angel Moreno MD at [facility] MA[facility] OR ??? PRO UPPER GI ENDOSCOPY, BIOPSY N/A 05/13/2017 EGD WITH BIOPSY (WRVU 2.49) performed by Aditya Barrera MD at [facility] ENDOSCOPY ??? PRO VASCULAR SURGERY PROCEDURE UNLIST Left 11/20/2015 LIGATION\REPAIR AV FISTULA performed by Camilo Ireland MD at [facility] MA[facility] OR ??? PRO VASCULAR SURGERY PROCEDURE UNLIST Left 11/20/2015 EXCISION VEIN FROM HAND performed by Camilo Ireland MD at [facility] MAIN OR ??? US RENAL TRANSPLANT BIOPSY 12/31/2010 Prior To Admission Medications: Prescriptions Prior to Admission Medication Sig Dispense Refill Last Dose ??? tacrolimus (PROGRAF) 1 mg Capsule Take 1 capsule twice daily. Kidney transplant 11/26/2002. ICD code Z94.0 60 capsule 5 ??? allopurinol (ZYLOPRIM) 100 mg Tablet Take 1 and 1/2 tablet daily. 45 tablet 11 ??? hydrALAZINE (APRESOLINE) 50 mg Tablet Take 1 tablet by mouth 2 times daily. 180 tablet 3 ??? metoprolol tartrate (LOPRESSOR) 50 mg Tablet Take half a pill 3 times a day (Patient taking differently: 50 mg 3 times daily.) 180 tablet 11 ??? levETIRAcetam (KEPPRA) 500 mg Tablet Take 1 pill in a.m. and half a pill in p.m. 45 tablet 11 ??? pantoprazole (PROTONIX) 20 mg Tablet, Delayed Release (E.C.) Take 1 tablet by mouth 2 times daily. 180 tablet 3 ??? sodium bicarbonate 650 mg Tablet Take 1 tablet by mouth 3 times daily. 270 tablet 3 Taking ??? losartan (COZAAR) 25 mg Tablet Take 1 tablet by mouth every morning. 90 tablet 3 Taking ??? acetaminophen (TYLENOL) 500 mg Tablet Take 2 tablets by mouth every 6 hours as needed for Pain.Do not exceed 4000 mg per 24 hours. Taking ??? warfarin (COUMADIN) 5 mg Tablet Take 1 tablet (5 mg) by mouth daily. PLEASE RESTART THIS MEDICINE ON 06/07. GO FOR INR ON 06/08. FOLLOW UP WITH DR GARCIA'S OFFICE. Taking ??? dilTIAZem (CARTIA XT) 120 mg Capsule, Sust. Release 24 hr Take 1 capsule by mouth daily. 90 capsule 3 Taking ??? mycophenolate (CELLCEPT) 250 mg Capsule Take 1 capsule by mouth 2 times daily. Kidney Transplant Z94.0. Transplant Date; 11-26-02 180 capsule 11 Taking ??? multivitamin Capsule Take 1 capsule by mouth daily. Taking ??? levothyroxine (SYNTHROID) 88 mcg tablet Take 88 mcg by mouth daily. Taking ??? cholecalciferol, Vitamin D3, 50,000 unit Capsule Take 1 capsule by mouth once a week. 12 capsule 3 ??? [DISCONTINUED] metroNIDAZOLE (METROCREAM) 0.75 % Cream Apply topically to face twice daily as needed. 45 g 0 ??? docusate sodium (COLACE) 100 mg Capsule Take 1 capsule by mouth 2 times daily as needed for Constipation. Taking Current Medications: ??? metoprolol tartrate (LOPRESSOR) tablet 50 mg ??? calcium gluconate 1g in sodium chloride 0.9% 100mL ??? furosemide (LASIX) injection 40 mg ??? ceFAZolin (ANCEF) 1g in dextrose 5% 50mL ??? levETIRAcetam (KEPPRA) 1,000 mg in sodium chloride (ISO-OSM) 100 mL ??? HYDROmorphone (DILAUDID) injection 0.3 mg ??? levETIRAcetam (KEPPRA) tablet 500 mg ??? levETIRAcetam (KEPPRA) tablet 250 mg ??? levothyroxine (SYNTHROID) tablet 88 mcg ??? pantoprazole (PROTONIX) tablet 20 mg ??? allopurinol (ZYLOPRIM) tablet 150 mg ??? docusate sodium (COLACE) capsule 100 mg ??? ondansetron (ZOFRAN) injection 4 mg ??? sodium chloride 0.45% 1,000 mL with sodium bicarbonate 75 mEq infusion ??? chlorhexidine (PERIDEX) 0.12 % oral solution 15 mL ??? sodium chloride 0.9 % flush 5 mL ??? sodium chloride 0.9 % flush 5-20 mL ??? lidocaine (XYLOCAINE) 10 mg/mL (1 %) injection 3 mg ??? acetaminophen (TYLENOL) tablet 1,000 mg OR [DISCONTINUED] acetaminophen (TYLENOL) 650 mg/20.3 mL oral liquid 1,000 mg OR [DISCONTINUED] acetaminophen (TYLENOL) suppository 975 mg ??? tacrolimus (PROGRAF) capsule 1 mg ??? mycophenolate (CELLCEPT) capsule 250 mg ??? hydrALAZINE (APRESOLINE) injection 10 mg ??? labetalol (NORMODYNE,TRANDATE) injection 20 mg Allergies: Allergies Allergen Reactions ??? Benazepril Hcl ??? Codeine Other (See Comments) Patient does not know reaction ??? Hydrochlorothiazide ??? Pollen Extracts Sneezing/runny nose Family History: Family History Problem Relation Age of Onset ??? Pancreatitis Father Social History and Habits: Social History Social History ??? Marital status: Single Spouse name: N/A ??? Number of children: N/A ??? 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 Smoking status: Former Smoker Packs/day: 0.25 Years: 1.50 Types: Cigarettes Quit date: 12/03/2000 ??? Smokeless tobacco: Former User Quit date: 04/14/2001 ??? Alcohol use No ??? Drug use: No Comment: havent in /1995 ??? Sexual activity: Not on file Comment: Deferred Other Topics Concern ??? Not on file Social History Narrative Physical Exam: Last Set of Vitals and range of vitals over past 24 hours: Last value Range last 24 hrs Temperature Temp: 37.6 ??C (99.7 ??F) Temp: [36.7 ??C (98.1 ??F)-37.6 ??C (99.7 ??F)] Heart Rate Heart Rate: 98 Heart Rate: [70-124] Blood Pressure BP: (!) 163/106 BP: (124-203)/(81-106) Respiratory Rate Resp: 20 Resp: [10-24] SpO2 SpO2: 95 % SpO2: [61 %-99 %] Gen: Answers yes/no, cannot string sentences together well per baseline, not in acute distress HEENT: Sclera non-icteric, PERRL CV: RRR, no m/r/g RESP: CTAB, no wheezing ABD: Soft, mildly tender to palpation, diffusely per yes/no answers, no rebound, no guarding, not peritoneal EXT: WWP, palpable pulses bilaterally Neuro: CN II-XII intact, PERRL Laboratory (Last 24 Hours): Last value Range last 24hrs Temperature Temp: 37.6 ??C (99.7 ??F) Temp: [36.8 ??C (98.2 ??F)-37.6 ??C (99.7 ??F)] Heart Rate Heart Rate: 98 Heart Rate: [76-124] Blood Pressure BP: (!) 163/106 BP: (124-203)/(81-106) Respiratory Rate Resp: 20 Resp: [10-24] SpO2 SpO2: 95 % SpO2: [61 %-99 %] BMI Body mass index is 28.91 kg/(m^2). Intake/Output Summary (Last 24 hours) at 04/08/18 1402 Last data filed at 04/08/18 1200 Gross per 24 hour Intake 1890 ml Output 2170 ml Net -280 ml Recent Labs 04/08/18 1045 04/08/18 0405 04/07/18 0555 04/07/18 0015 04/06/18 1740 04/06/18 1553 04/06/18 1315 WBC -- 8.7 -- -- 8.6 10.3* 15.5* HGB 7.2* 6.8* 7.2* 7.9* 7.8* 7.7* 11.5* HCT 21.3* 20.4* 21.2* 23.1* 23.1* 23.2* 35.2* PLATELET -- 94* -- -- 95* 96* 145 PT 51.2* -- -- -- 24.1* 22.5* 29.1* INR 4.5 -- -- -- 2.2 2.0 2.6 PTT 38* -- -- -- 30 30 31 Recent Labs 04/08/18 0405 04/07/18 0430 04/07/18 0015 04/06/18 1740 04/06/18 1315 NA 144 143 143 145 140 K 5.4* 5.4* 6.1* 5.2* 5.2* CL 115* 116* 117* 118* 116* CO2 16* 16* 15* 16* 15* BUN 47* 50* 48* 45* 39* CREATININE 2.93* 2.68* 2.58* 2.48* 2.01* GLUCOSE 120 124 167 -- 219* CALCIUM 7.1* 7.0* 6.8* 6.7* 4.9* MAGNESIUM -- -- -- 0.60* -- PHOS -- -- -- 3.3 -- Recent Labs 04/06/18 1724 04/06/18 1604 04/06/18 1541 04/06/18 1513 04/06/18 1448 PHART 7.29* 7.27* 7.22* 7.18* 7.27* PO2ART 65* 152* 168* 228* 379* SEM6CXS 31* 34* 39 40 36 BEART -11.8* -11.8* -12.4* -13.5* -10.8* Scheduled Meds: ??? meTOPROLOL 50 mg Oral Q8H EDWARD ??? calcium gluconate 1 g Intravenous Once ??? furosemide 40 mg Intravenous Once ??? ceFAZolin 1 g Intravenous Q12H ??? levETIRAcetam 500 mg Oral Daily ??? levETIRAcetam 250 mg Oral Daily ??? levothyroxine 88 mcg Oral QAM ??? pantoprazole 20 mg Oral BID ??? allopurinol 150 mg Oral Daily ??? docusate sodium 100 mg Oral BID ??? chlorhexidine 15 mL Oral BID ??? sodium chloride 0.9 % 5 mL Intravenous Q12H ??? acetaminophen 1,000 mg Oral Q8H EDWARD ??? tacrolimus 1 mg Oral BID ??? mycophenolate 250 mg Oral BID Continuous Infusions: ??? 1/2 NS with Custom Additives 50 mL/hr at 04/07/18 5482 Procedure Component Value Units Date/Time ? Body Fluid Culture, Aerobic & Anaerobic Fluid [[id number]] Collected: 04/06/18 1415 ? Lab Status: Preliminary result Specimen: Fluid Updated: 04/07/18 1332 ? Body Fluid Culture, Aerobic [[id number]] Collected: 04/06/18 1415 ? Lab Status: Preliminary result Specimen: Fluid Updated: 04/07/18 0804 ? Body Fluid Culture Few normal cutaneous shaina ? Gram Stain -- ? Few Neutrophils seen No microorganisms seen. ? Anaerobic Culture [[id number]] Collected: 04/06/18 1415 ? Lab Status: Preliminary result Specimen: Fluid Updated: 04/07/18 1332 ? Anaerobic Culture No anaerobic organisms isolated to date ? Radiology: MRI 04/06 IMPRESSION Multiple areas of acute ischemia, primarily cortical, likely reflecting mild hypoxic ischemic injury. ?? CT Spine 04/06 IMPRESSION No acute fracture or traumatic malalignment of the thoracic or lumbar spine. CT Chest Abdomen Pelvis 04/06 ?? IMPRESSION 1. IMPRESSION: No acute injury of the visualized vascular structures. 2. No abdominal solid organ injury. No pneumothorax. Most Recent Neurology Note, Dr. Miles, 10/20/2017 The patient is seen in follow up today. ?? As noted earlier, he has epilepsy with generalized convulsive seizures. 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 MRI scan showed some generalized atrophy and lesions compatible with a history of trauma. EEG showed mild generalized slowing. Seizures were controlled on Dilantin and phenobarbital. He was converted to Keppra in the context of his need for renal transplantation because of IgA nephropathy. Seizures have remained fully controlled. ?? He is doing quite well neurologically. He remains seizure-free. His last seizure was several years ago. There has been quite a lot of confusion regarding his dose of Keppra, and it seems that he is now taking 500, 250 mg which he is tolerating well, and it seems enough to control his seizures. ?? 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 He had surgery to close an enlarged dialysis fistula Consults: Nephrology IMPRESSION/ RECOMMENDATIONS: Christy Ambrose is a 57 y/o M with h/o Renal transplant in 2002 for ESRD secondary to IgA nephropathy,post transplant course complicated by delayed graft function,recurrent IgAa nephropathy,prograf toxicity who is now CKD stage IV on prograf,cellcept for immunosuppression ,admitted for hemorrhagic shock,PEA cardiac arrest secondary to bleeding from ruptured LUE AV fistulas/p chest compressions,epi,IVF boluses with ROSC,intubated for airway protection then extubated,s/p PRBC/FFPs transfusions.Posisble TRISTIAN on CKD from shock with good urine out put. ?? 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 -Recommended to give IVF with bicarbonate for acidosis -Hypocalcemia -Corrected calcium is still low.Recommended to give IV calcium gluconate as needed -Blood loss anemia-transfuse PRBCs to keep Hgb around 8-10 for better renal and cerebral perfusion.Give lasix 40 mg IV before and in between transfusions -Avoid any nephrotoxins -Strict intake and out put monitoring -Daily weights -Renal dosing for medications Immuno suppression: Continue prograf 1mg PO BID-pending trough levels .Last Prograf level was 5.5 in september 2017. If need to change fromPO to IV prograf the dose has to be 1/3 rd of PO dose and has to be given over a period of 20 hrs,off for 4 hrs Daily.Check trough levels 30 min-1hr prior to next dose Conitnue Cellcept 250 mg PO BID.If can not take PO,can change to 250 mg IV BID #2.Hyperkalemia-if persistent ,can give lasix iv and or kayexalate to improve K levels if no contraindications.Check repeat CPK levels to evaluate any rhabdomyolysis contributing for hyperkalemia.Give lasix IV for edema which also improved potassium levels ?? #3.Non AGAP Metabolic Acidosis:Lactic acidosis improved.Was on sodium bicarb Po 650 TID at home forhis chronic metabolic acidosis form his renal failure.Recommended to change maintananace IVF to 1/2NS with 75 Meq of bicarb(1.5 amps) and resume PO bicarb home dose once he can take PO .Monitor BMP.Can give IV bicarb as needed. #4.Hypertension:Was on hydralazine 50 mg BID,diltiazem 120 mg XT daily ,metorpolol 50 mg TID,losartan 25 mg daily at home.Hold losartan for now until K levels better.BP elevated.Recommned to increasethe dose of metoprolol and resume home meds as tolerated to keep BP stable .currently on [id number] mg BID and hydralazine,labetolol IV prn ?? #5.Ruptured Left UE AVF and compartment syndrome of L Forearm: s/p exploration,brachial artery patch angioplasty,forearm and hand fasciotomies on 04/06/18.Vascular planning for washout and possible closure soon ?? #6.Metabolic encephalopathy with underlying TBI: Possible anoxic brain injury from his PEA cardiac arrest.CT head per report no acute intracranial abnormality,underlying left Temporal lobe post traumatic encephalomalacic changes.MRI brain findings as above.Appreciate neurology evaluation.Check keppra levels. Assessment This is a 57M with history of generalized convulsive seizures on keppra and functioning renal TP from 2002 on chronic immunosuppression, now 2 Days Post-Op left brachial artery patch angioplasty, left forearm fasciotomy, after bleed from LUE fistula resulting in PEA arrest. Mr. Ambrose transferred back to ICU for closer monitoring and work up of his likely seizure activitytoday, in the context of his known history of epilepsy with generalized convulsive seizures. Plan: Neuro: - Tylenol sched, dilaudid prn - Home dose Keppra 500 mg in the am, 250 mg at night per neurology, s/p 1000 mg loading dose today per neurology -EEG, further work up per neurology Pulm: - Sating in 90s on RA CV: - Home metoprolol 50 mg q8h GI: - NPO - No BM since admission, pericolace 1 tab BID, milk of magnesium x1 Renal/FEK: - Appreciate transplant medicine recommendations -cellcept 250 mg BID, tacrolimus 1 mg BID per TP medicine -Cr uptrending 2.9 (baseline 2.6) Hematology: - Transfused 1 u pRBCs for drifting hgb to 7.2 this am - daily cbc MSK: - Left arm fasciotomy site dressed and changed per vascular surgery. Plan for take back to OR todayor tomorrow per Dr. Aj. ID: - As above for left arm wash out planning Endocrine: - Home levo thyroxine Code Status: Full Code Disposition: Critical Care Red 1 Team (pager [phone]) Natalya Minaya MD 04/08/2018 * Erwin Marino MD - 04/06/2018 5:03 PM EDT Critical Care - Admission Note History of Present Illness: Christy Ambrose is a 57 y.o. male with PMH of HTN, TBI w/ epilepsy, gout, IgA nephropathy s/p donor renal transplant 2002 (on tacrolimus and cellcept) complicated by delayed graft function andrecurrent IgA nephropathy and Prograf toxicity, laparoscopic L cahto radical nephrectomy May 2017 for papillary carcinoma, HTN, previous revision of L AVF due to massive size. Recently put on coumadin for infection of left forearm with swelling, suspected to be DVT. Presents to [facility] with hemorrhagic shock s/p PEA arrest secondary to torrential left upper extremity fistula bleeding. Per EMS the patient had a severe amount of blood loss in the bathroom and bedroom that resulted in PEA cardiac arrest at the scene. He received epinephrine, 2.5 L of normal saline with ROSC obtained. Arrived at [facility] and sedated and then received 6 units pRBC. Hemodynamically stable since but had 2 tourniquets on, the first tourniquet went up at 9:49 AM. To OR with vascular as A case for tourniquet takedown, AVF exploration, fasciotomies, graft repair. Received 4 unit FFP in OR, insulin/dextrose for hyperkalemia. Review of Systems: Unable to assess Past Medical Surgery: Past Medical History: Diagnosis Date ??? BP (high blood pressure) ??? DVT (deep venous thrombosis) ??? Gout ??? Hypertension ??? Kidney problem ??? Pneumonia ??? TBI (traumatic brain injury) 1980 Past and Surgical History: Past Surgical History: Procedure Laterality Date ??? CREATED BY INTERFACE Entered not Verified Procedure Date: 09/19/2010 ??? KIDNEY TRANSPLANT KIDNEY TRANSPLANT / RECIPIENT/LT Procedure Date: 11/26/2002 ? ? PRO DEBRIDEMENT SUBCUTANEOUS TISSUE 20 SQCM/< Left 02/20/2016 DEBRIDEMENT SKIN AND SUBCU, HEAD/NECK performed by Miguel Angel Moreno MD at [facility] MAIN OR ??? PRO EXC PAROTD, TOTAL, UNILAT RAD NECK Left 02/05/2016 @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, TOTAL, WITH UNILATERAL RADICAL NECK DISSECTION performed by Miguel Angel Moreno MD at [facility] OR ??? PRO EXC SKIN MALIG 3.1-4CM FACE, FACIAL Left 02/05/2016 EXC MALIGNANT LESION, 3.1 TO 4.0CM, FACE performed by Miguel Angel Moreno MD at [facility] OR ? ? PRO EXC SKIN MALIG >4CM TRUNK, ARM, LEG 04/19/2012 EXC MALIGNANT LESION, MICHAEL > 4.0CM, TRUNK performed by SABRINA MEDRANO at [facility] OR ??? PRO LAP, RADICAL NEPHRECTOMY Left 05/31/2017 @LAPAROSCOPY, RADICAL NEPHRECTOMY (WRVU 25.06) performed by Jax Mills MD at [facility] OR ??? PRO REPAIR INTERMEDIATE S/A/T/E 2.6-7.5 CM 04/19/2012 REPAIR INTERMEDIATE WOUND, (NO HANDS OR FEET) 2.6 TO 7.5CM, UPPER EXTREMITY performed by SABRINA MEDRANO at [facility] OR ? ? PRO SPLIT GRFT, HEAD, FAC, HAND, FEET <100SQCM N/A 02/20/2016 SPLIT THICKNESS SKIN SPLIT GRAFT,100SQ CM OR LESS, NECK performed by Miguel Angel Moreno MD at [facility] MA[facility] OR ??? PRO UPPER GI ENDOSCOPY, BIOPSY N/A 05/13/2017 EGD WITH BIOPSY (WRVU 2.49) performed by Aditya Barrera MD at [facility] ENDOSCOPY ??? PRO VASCULAR SURGERY PROCEDURE UNLIST Left 11/20/2015 LIGATION\REPAIR AV FISTULA performed by Camilo Ireland MD at [facility] OR ??? PRO VASCULAR SURGERY PROCEDURE UNLIST Left 11/20/2015 EXCISION VEIN FROM HAND performed by Camilo Ireland MD at [facility] MA[facility] OR ??? US RENAL TRANSPLANT BIOPSY 12/31/2010 Prior To Admission Medications: Prescriptions Prior to Admission Medication Sig Dispense Refill Last Dose ??? cholecalciferol, Vitamin D3, 50,000 unit Capsule Take 1 capsule by mouth once a week. 12 capsule 3 ??? tacrolimus (PROGRAF) 1 mg Capsule Take 1 capsule twice daily. Kidney transplant 11/26/2002. ICD code Z94.0 60 capsule 5 ??? allopurinol (ZYLOPRIM) 100 mg Tablet Take 1 and 1/2 tablet daily. 45 tablet 11 ??? hydrALAZINE (APRESOLINE) 50 mg Tablet Take 1 tablet by mouth 2 times daily. 180 tablet 3 ??? metroNIDAZOLE (METROCREAM) 0.75 % Cream Apply topically to face twice daily as needed. 45 g 0 ??? metoprolol tartrate (LOPRESSOR) 50 mg Tablet Take half a pill 3 times a day 180 tablet 11 ??? levETIRAcetam (KEPPRA) 500 mg Tablet Take 1 pill in a.m. and half a pill in p.m. 45 tablet 11 ??? pantoprazole (PROTONIX) 20 mg Tablet, Delayed Release (E.C.) Take 1 tablet by mouth 2 times daily. 180 tablet 3 ??? sodium bicarbonate 650 mg Tablet Take 1 tablet by mouth 3 times daily. 270 tablet 3 Taking ??? losartan (COZAAR) 25 mg Tablet Take 1 tablet by mouth every morning. 90 tablet 3 Taking ??? acetaminophen (TYLENOL) 500 mg Tablet Take 2 tablets by mouth every 6 hours as needed for Pain.Do not exceed 4000 mg per 24 hours. Taking ??? docusate sodium (COLACE) 100 mg Capsule Take 1 capsule by mouth 2 times daily as needed for Constipation. Taking ??? warfarin (COUMADIN) 5 mg Tablet Take 1 tablet (5 mg) by mouth daily. PLEASE RESTART THIS MEDICINE ON 06/07. GO FOR INR ON 06/08. FOLLOW UP WITH DR GARCIA'S OFFICE. Taking ??? dilTIAZem (CARTIA XT) 120 mg Capsule, Sust. Release 24 hr Take 1 capsule by mouth daily. 90 capsule 3 Taking ??? mycophenolate (CELLCEPT) 250 mg Capsule Take 1 capsule by mouth 2 times daily. Kidney Transplant Z94.0. Transplant Date; 11-26-02 180 capsule 11 Taking ??? multivitamin Capsule Take 1 capsule by mouth daily. Taking ??? levothyroxine (SYNTHROID) 88 mcg tablet Take 88 mcg by mouth daily. Taking Current Medications: ??? [MAR Hold] fentaNYL (PF) 50mcg/mL injection ??? [MAR Hold] calcium gluconate 1g in sodium chloride 0.9% 100mL ??? [MAR Hold] dextrose 50% IV syringe 50 mL AND [MAR Hold] insulin regular human VIAL injection 10 Units AND POCT Fingerstick Glucose AND POCT Fingerstick Glucose ??? heparin (porcine) injection ??? thrombin (Bovine) (THROMBINAR) kit ??? gelatin adsorbable (GELFOAM) sponge ??? rocuronium (ZEMURON) multi-dose injection ??? midazolam (PF) (VERSED) 1 mg/mL multi-dose injection ??? ceFAZolin (ANCEF) 1g in dextrose 5% 50mL ??? insulin regular human VIAL injection ??? dextrose 50% intravenous solution ??? ePHEDrine 5 mg/mL multi-dose injection Allergies: Allergies Allergen Reactions ??? Benazepril Hcl ??? Codeine Other (See Comments) Patient does not know reaction ??? Hydrochlorothiazide ??? Pollen Extracts Sneezing/runny nose Family History: Family History Problem Relation Age of Onset ??? Pancreatitis Father Social History and Habits: Social History Social History ??? Marital status: Single Spouse name: N/A ??? Number of children: N/A ??? 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 Smoking status: Former Smoker Packs/day: 0.25 Years: 1.50 Types: Cigarettes Quit date: 12/03/2000 ??? Smokeless tobacco: Former User Quit date: 04/14/2001 ??? Alcohol use No ??? Drug use: No Comment: havent in /1995 ??? Sexual activity: Not on file Comment: Deferred Other Topics Concern ??? Not on file Social History Narrative Physical Exam: Last Set of Vitals and range of vitals over past 24 hours: Last value Range last 24 hrs Temperature Temp: -- Heart Rate Heart Rate: -- Blood Pressure BP: -- Respiratory Rate Resp: -- SpO2 SpO2: -- Gen: Intubated and sedated HEENT: Sclera non-icteric, PERRL, ETT secured in place CV: RRR, no m/r/g RESP: CTAB, no wheezing, ventilator BS bilaterally ABD: Soft, normoactive bowel sounds EXT: WWP, palpable pulses in BLE, R wrist. L arm wrapped from hand to shoulder. Neuro: Deferred for sedation wean Laboratory (Last 24 Hours): Recent Results (from the past 24 hour(s)) Prepare RBC Result Value Ref Range Dispensed? Yes BLOOD GAS 2 ARTERIAL Result Value Ref Range pH Art 7.14 (CRIT) 7.35 - 7.45 pCO2 Art 51 (H) 35 - 45 mmHg pO2 Art 38 (CRIT) 85 - 104 mmHg HCO3 Art 16.7 (L) 20.0 - 26.0 mmol/L BE Art -12.4 (L) -3.0 - 3.0 mmol/L Hgb Blood Gas 12.3 (L) 13.7 - 16.5 gm/dL O2HB Art 69.1 (L) 94.0 - 97.0 % COHB Art 0.3 % METHB Art 0.4 <=1.5 % Na Whole Blood 137 135 - 145 mmol/L K Whole Blood 6.3 (CRIT) 3.5 - 5.0 mmol/L ICa Whole Blood 1.01 (L) 1.15 - 1.33 mmol/L CL Whole Blood 112 (H) 98 - 107 mmol/L Gluc Whole Bld 258 (H) 65 - 199 mg/dL Lactate WB 2.0 0.5 - 2.2 mmol/L Basic Metabolic Panel (non-fasting) Result Value Ref Range Glucose Lvl 219 (H) 65 - 199 mg/dL BUN 39 (H) 10 - 20 mg/dL Creatinine 2.01 (H) 0.80 - 1.50 mg/dL Sodium 140 135 - 145 mmol/L Potassium 5.2 (H) 3.5 - 5.0 mmol/L Chloride 116 (H) 98 - 107 mmol/L CO2 15 (L) 22 - 31 mmol/L Anion Gap 9 5 - 15 mmol/L Calcium 4.9 (CRIT) 8.5 - 10.5 mg/dL eGFR 36 (L) >=60 mL/min/1.73 m?? eGFR 42 (L) >=60 mL/min/1.73 m?? Prothrombin Time Result Value Ref Range PT 29.1 (H) 9.4 - 12.5 sec INR 2.6 APTT Result Value Ref Range PTT 31 25 - 37 sec Ethanol Level Result Value Ref Range Ethanol Lvl <100 <=99 mg/L Fibrinogen Result Value Ref Range Fibrinogen 255 200 - 393 mg/dL Antibody screen Result Value Ref Range Expires at 2359 on: 04/09/2018 Hemogram Result Value Ref Range WBC 15.5 (H) 4.0 - 9.5 x10(3)/mcL RBC 3.80 (L) 4.58 - 5.54 x10(6)/mcL Hemoglobin 11.5 (L) 13.7 - 16.5 gm/dL Hematocrit 35.2 (L) 40.5 - 48.5 % MCV 92.6 82.9 - 93.1 fL MCH 30.3 27.5 - 32.1 pg MCHC 32.7 32.0 - 35.7 gm/dL Platelets 145 145 - 357 x10(3)/mcL RDWSD 53.2 (H) 36.0 - 45.0 fL RDWCV 15.9 (H) 11.4 - 13.8 % MPV 9.0 7.6 - 12.9 fL nRBC % Auto 0.0 % nRBC Abs Auto 0.000 0.000 - 0.000 x10(3)/mcL Blue Tube HOLD Result Value Ref Range Blue Hold Sample in lab. Gold Tube HOLD Result Value Ref Range Gold Hold Sample in lab. Blue Tube HOLD Result Value Ref Range Blue Hold Sample in lab. ABORH Recheck Status Result Value Ref Range ABORH Type Recheck Completed Rapid Drug Screen, Urine (RAUL Request) Result Value Ref Range RAUL Conf Requested No RAUL Requested See Comment Urinalysis with reflex Culture Result Value Ref Range Glucose UA 50 (A) Negative mg/dL Protein UA >=500 (A) Negative mg/dL Bilirubin UA Negative Negative mg/dL Urobilinogen UA Normal Normal mg/dL pH UA 6.0 5.0 - 8.0 Blood UA Small (A) Negative mg/dL Ketones UA Negative Negative mg/dL Nitrite UA Negative Negative Leukocytes UA Negative Negative mcL Appearance UA Hazy (A) Clear Spec [place] Shoe UA 1.023 1.002 - 1.030 Color UA Yellow Yellow Culture Reflexed No Rapid Drug Screen w/o Confirmation, Urine Result Value Ref Range U Barbiturates Screen None Detected None Detected U Benzodiazepines Screen None Detected None Detected U Cocaine Screen None Detected None Detected U Methadone Metabolites Screen None Detected None Detected U Opiate Screen None Detected None Detected U Cannabinoid Screen None Detected None Detected U Oxycodone Screen None Detected None Detected U Buprenorphine Screen None Detected None Detected U Fentanyl Screen None Detected None Detected U Tricyclics Screen None Detected None Detected U Ethanol Screen None Detected None Detected U Amphetamines Screen None Detected None Detected U Adulterants Screen None Detected None Detected Urinalysis Microscopic Exam Result Value Ref Range RBC UA 21 (H) 0 - 3 /HPF WBC UA 8 (H) 0 - 3 /HPF Bacteria UA Occasional (A) None /HPF Squam Epith UA 1 <=4 /HPF Gran Cast UA 1 (H) <=0 /LPF Microbiology: Wound Culture L arm pending Gram stain: Few Neutrophils seen. No microorganisms seen. Radiology: XR Chest and [id number] 9/26 Prominence of the superior mediastinum may be due to technique. The presence of a mediastinal hematoma is not excluded with this study. Opacity in the medial right lung base may be due to atelectasis, pneumonia, aspiration or contusion. There is contrast material in the bladder suggesting that this patient may have had a prior CT scan today. Pending read of additional studies at OSH prior to transfer. Assessment/Plan: Neuro: Unknown neuro status, pre-op was opening eyes, disconjugate gaze. - pain: edward APAP and fentanyl ggt - seizure: Hx epilepsy with frequent seizures following TBI, home dose keppra - sedation: Currently on no sedation - EtOH, UTox negative CV: hemodynamically stable, continue to monitor, SBP goal 65 - pressor: low dose alvaro, wean as tolerated - anti-htn: hold home anti-hypertensives - S/p 6 units pRBC, 4 unit FFP. - Lactate to 2.8, rising. Continue to trend q6h - Follow H/H q6h - LR at 100/hr - Will require central line Pulm: - AMV protocol, wean to extubate FEN/GI: - diet: NPO (hold meds) Famotidine ppx Hyperkalemic, given insulin/glucose, calcium gluconate Not on dialysis, was doing well with kidney transplant Trend CMP : Peraza in place, continue to monitor UOP Urinalysis significant for protein >500., RBC 21. MSK: - Found down - treat as trauma patient. 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 Rob. I have independently reviewed the relevant laboratory and radiographic studies. I agree with the details as written. My physical examination confirms the resident's findings. The assessment and plan were formulated in discussion with me at the time ofthe visit and I agree with them as documented. Physical Exam Constitutional: The patient appears well-developed and well-nourished. Eyes: Pupils are equal, round, and reactive to light. Neck: cervical collar in place. Cardiovascular: Normal rate. Pulmonary/Chest ventilated BS. Musculoskeletal: Normal range of motion except LUE. Neurological: The patient intubated but follows commands. Skin: Skin is warm. Is this patient critically ill? Is there a high potential of sudden, clinically significant, or life threatening deterioration? Yes Is there a need for direct personal assessment and management to treat/prevent multiple vital organfailure/deterioration? Yes Patient is critically ill with these diagnoses being managed by the CCS Team Acidosis Metabolic Active Hemorrhage Other AV fistula rupture TIME spent on the unit (excluding procedures) 12 Minutes during rounds, including bedside examination 8 Minutes reviewing laboratory data and radiographic images 12 Minutes preparing documentation 32 Minutes total critical care time * Fabian Burkett MD - 04/06/2018 1:23 PM EDT TRAUMA & ACUTE SURGICAL CARE H&P Patient Name: Christy Ambrose Level of Activation: Trauma 9 MR#: [id number] [ ]Scene Call or [X]Hospital Transfer : [id number] CC/MECHANISM OF INJURY: 57 y.o. Male s/p L upper extremity bleed and PEA arrest HISTORY OF PRESENT ILLNESS: Christy Ambrose is a 57 y.o. 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 Description of events leading up to injury includes: pt had called his mother earlier today to report leaking from his LUE AVF site. EMS arrived and found pt in a pool of blood in bathroom, pulseless and unresponsive. Performed several rounds of compressions and epi with ROSC. Tourniquets applied in field at approx 10 AM. Pt intubated in field. Pt taken to [facility], where second tourniquet applied and pt received 6U PRBC. Transferred to [facility] for further care. Of note, per Dr. Olvera note from September 2017, pt has had issues with L AVF previously, requiringrevision due to massive size. Primary survey revealed: airway secured w 7-5 ETT at 25 cm at lips, equal breath sounds/respirations, present 2+ peripheral pulses in RUE and BLE with stable vital signs and no signs of bleeding, GCS11T (6 - Follows simple motor commands, 1 - Makes no noise, 4 - Opens eyes on own), and complete exposure. Secondary survey is as follows: PAST MEDICAL: Past Medical History: Diagnosis Date ??? BP (high blood pressure) ??? DVT (deep venous thrombosis) ??? Gout ??? Hypertension ??? Kidney problem ??? Pneumonia ??? TBI (traumatic brain injury) 1979 PAST SURGICAL HISTORY: Past Surgical History: Procedure Laterality Date ??? CREATED BY INTERFACE Entered not Verified Procedure Date: 09/19/2010 ??? KIDNEY TRANSPLANT KIDNEY TRANSPLANT / RECIPIENT/LT Procedure Date: 11/26/2002 ? ? PRO DEBRIDEMENT SUBCUTANEOUS TISSUE 20 SQCM/< Left 02/20/2016 DEBRIDEMENT SKIN AND SUBCU, HEAD/NECK performed by Miguel Angel Moreno MD at [facility] MAIN OR ??? PRO EXC PAROTD, TOTAL, UNILAT RAD NECK Left 02/05/2016 @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, TOTAL, WITH UNILATERAL RADICAL NECK DISSECTION performed by Miguel Angel Moreno MD at [facility] OR ??? PRO EXC SKIN MALIG 3.1-4CM FACE, FACIAL Left 02/05/2016 EXC MALIGNANT LESION, 3.1 TO 4.0CM, FACE performed by Miguel Angel Moreno MD at [facility] OR ? ? PRO EXC SKIN MALIG >4CM TRUNK, ARM, LEG 04/19/2012 EXC MALIGNANT LESION, MICHAEL > 4.0CM, TRUNK performed by SABRINA MEDRANO at [facility] OR ??? PRO LAP, RADICAL NEPHRECTOMY Left 05/31/2017 @LAPAROSCOPY, RADICAL NEPHRECTOMY (WRVU 25.06) performed by Jax Mills MD at [facility] OR ??? PRO REPAIR INTERMEDIATE S/A/T/E 2.6-7.5 CM 04/19/2012 REPAIR INTERMEDIATE WOUND, (NO HANDS OR FEET) 2.6 TO 7.5CM, UPPER EXTREMITY performed by SABRINA MEDRANO at [facility] OR ? ? PRO SPLIT GRFT, HEAD, FAC, HAND, FEET <100SQCM N/A 02/20/2016 SPLIT THICKNESS SKIN SPLIT GRAFT,100SQ CM OR LESS, NECK performed by Miguel Angel Moreno MD at [facility] MA[facility] OR ??? PRO UPPER GI ENDOSCOPY, BIOPSY N/A 05/13/2017 EGD WITH BIOPSY (WRVU 2.49) performed by Aditya Barrera MD at [facility] ENDOSCOPY ??? PRO VASCULAR SURGERY PROCEDURE UNLIST Left 11/20/2015 LIGATION\REPAIR AV FISTULA performed by Camilo Ireland MD at [facility] OR ??? PRO VASCULAR SURGERY PROCEDURE UNLIST Left 11/20/2015 EXCISION VEIN FROM HAND performed by Camilo Ireland MD at [facility] OR ??? US RENAL TRANSPLANT BIOPSY 12/31/2010 ALLERGIES: Allergies Allergen Reactions ??? Benazepril Hcl ??? Codeine Other (See Comments) Patient does not know reaction ??? Hydrochlorothiazide ??? Pollen Extracts Sneezing/runny nose MEDICATIONS: Prescriptions Prior to Admission Medication Sig Dispense Refill Last Dose ??? cholecalciferol, Vitamin D3, 50,000 unit Capsule Take 1 capsule by mouth once a week. 12 capsule 3 ??? tacrolimus (PROGRAF) 1 mg Capsule Take 1 capsule twice daily. Kidney transplant 11/26/2002. ICD code Z94.0 60 capsule 5 ??? allopurinol (ZYLOPRIM) 100 mg Tablet Take 1 and 1/2 tablet daily. 45 tablet 11 ??? hydrALAZINE (APRESOLINE) 50 mg Tablet Take 1 tablet by mouth 2 times daily. 180 tablet 3 ??? metroNIDAZOLE (METROCREAM) 0.75 % Cream Apply topically to face twice daily as needed. 45 g 0 ??? metoprolol tartrate (LOPRESSOR) 50 mg Tablet Take half a pill 3 times a day 180 tablet 11 ??? levETIRAcetam (KEPPRA) 500 mg Tablet Take 1 pill in a.m. and half a pill in p.m. 45 tablet 11 ??? pantoprazole (PROTONIX) 20 mg Tablet, Delayed Release (E.C.) Take 1 tablet by mouth 2 times daily. 180 tablet 3 ??? sodium bicarbonate 650 mg Tablet Take 1 tablet by mouth 3 times daily. 270 tablet 3 Taking ??? losartan (COZAAR) 25 mg Tablet Take 1 tablet by mouth every morning. 90 tablet 3 Taking ??? acetaminophen (TYLENOL) 500 mg Tablet Take 2 tablets by mouth every 6 hours as needed for Pain.Do not exceed 4000 mg per 24 hours. Taking ??? docusate sodium (COLACE) 100 mg Capsule Take 1 capsule by mouth 2 times daily as needed for Constipation. Taking ??? warfarin (COUMADIN) 5 mg Tablet Take 1 tablet (5 mg) by mouth daily. PLEASE RESTART THIS MEDICINE ON 06/07. GO FOR INR ON 06/08. FOLLOW UP WITH DR GARCIA'S OFFICE. Taking ??? dilTIAZem (CARTIA XT) 120 mg Capsule, Sust. Release 24 hr Take 1 capsule by mouth daily. 90 capsule 3 Taking ??? mycophenolate (CELLCEPT) 250 mg Capsule Take 1 capsule by mouth 2 times daily. Kidney Transplant Z94.0. Transplant Date; 11-26-02 180 capsule 11 Taking ??? multivitamin Capsule Take 1 capsule by mouth daily. Taking ??? levothyroxine (SYNTHROID) 88 mcg tablet Take 88 mcg by mouth daily. Taking FAMILY HISTORY: Not asked due to acuity SOCIAL HISTORY: Social History Social History ??? Marital status: Single Spouse name: N/A ??? Number of children: N/A ??? 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 Smoking status: Former Smoker Packs/day: 0.25 Years: 1.50 Types: Cigarettes Quit date: 12/03/2000 ??? Smokeless tobacco: Former User Quit date: 04/14/2001 ??? Alcohol use No ??? Drug use: No Comment: havent in /1995 ??? Sexual activity: Not on file Comment: Deferred Other Topics Concern ??? Not on file Social History Narrative REVIEW OF SYSTEMS: not performed due to acuity of condition PHYSICAL EXAM: VITALS: There were no vitals filed for this visit. GENERAL: intubated but awake HEAD: Normocephalic, without obvious abnormality, atraumatic FACE: Pupils: equal, round, reactive to light, no periorbital ecchymoses; Tympanic Membranes: clear to visualization; Midface: no tenderness, no swelling, no contusions, no lacerations and no abrasions over entire face Oropharynx: scant blood on lips, moist mucous membranes, no lacerations, no malocclusion and no chipped or missing teeth NECK: no tenderness to palpation, trachea midline, no masses, no swelling, no contusions and no abrasions LUNG: equal, clear breath sounds bilaterally and no crepitus CARDIAC: Regular rate and rhythm ABDOMEN/GI: soft, non-tender, non-distended, no abrasions and no contusions PELVIS: stable to AP and/or lateral compression RECTAL: Sphincter tone exam deferred EXTREMITIES: LUE = two tourniquets to proximal upper arm, blister formation between tourniquets, forearm edematous, no movement of extremity; RUE and BLE = normal and symmetric movement, normal rangeof motion, no joint swelling SPINE: no deformity, no stepoffs and no abrasions over cervical spine, thoracic spine and/or lumbarspine SKIN: LUE shows dusky necrotic tissue overlying large AVF site in AC, no active bleeding with tourniquets applied. Additional old fistula at L wrist. NEURO: Mental Status: awake and follows commands despite intubation, Cranial Nerves: CN II - XII intact Motor: LUE = 0/5 strength; RUE and BLE = normal 5/5 strength in all tested muscle groups Sensory: not assessed LABORATORY: Recent Results (from the past 24 hour(s)) Prepare RBC Result Value Ref Range Dispensed? Yes BLOOD GAS 2 ARTERIAL Result Value Ref Range pH Art 7.14 (CRIT) 7.35 - 7.45 pCO2 Art 51 (H) 35 - 45 mmHg pO2 Art 38 (CRIT) 85 - 104 mmHg HCO3 Art 16.7 (L) 20.0 - 26.0 mmol/L BE Art -12.4 (L) -3.0 - 3.0 mmol/L Hgb Blood Gas 12.3 (L) 13.7 - 16.5 gm/dL O2HB Art 69.1 (L) 94.0 - 97.0 % COHB Art 0.3 % METHB Art 0.4 <=1.5 % Na Whole Blood 137 135 - 145 mmol/L K Whole Blood 6.3 (CRIT) 3.5 - 5.0 mmol/L ICa Whole Blood 1.01 (L) 1.15 - 1.33 mmol/L CL Whole Blood 112 (H) 98 - 107 mmol/L Gluc Whole Bld 258 (H) 65 - 199 mg/dL Lactate WB 2.0 0.5 - 2.2 mmol/L Basic Metabolic Panel (non-fasting) Result Value Ref Range Glucose Lvl 219 (H) 65 - 199 mg/dL BUN 39 (H) 10 - 20 mg/dL Creatinine 2.01 (H) 0.80 - 1.50 mg/dL Sodium 140 135 - 145 mmol/L Potassium 5.2 (H) 3.5 - 5.0 mmol/L Chloride 116 (H) 98 - 107 mmol/L CO2 15 (L) 22 - 31 mmol/L Anion Gap 9 5 - 15 mmol/L Calcium 4.9 (CRIT) 8.5 - 10.5 mg/dL eGFR 36 (L) >=60 mL/min/1.73 m?? eGFR 42 (L) >=60 mL/min/1.73 m?? Prothrombin Time Result Value Ref Range PT 29.1 (H) 9.4 - 12.5 sec INR 2.6 APTT Result Value Ref Range PTT 31 25 - 37 sec Ethanol Level Result Value Ref Range Ethanol Lvl <100 <=99 mg/L Fibrinogen Result Value Ref Range Fibrinogen 255 200 - 393 mg/dL Antibody screen Result Value Ref Range Expires at 2359 on: 04/09/2018 Hemogram Result Value Ref Range WBC 15.5 (H) 4.0 - 9.5 x10(3)/mcL RBC 3.80 (L) 4.58 - 5.54 x10(6)/mcL Hemoglobin 11.5 (L) 13.7 - 16.5 gm/dL Hematocrit 35.2 (L) 40.5 - 48.5 % MCV 92.6 82.9 - 93.1 fL MCH 30.3 27.5 - 32.1 pg MCHC 32.7 32.0 - 35.7 gm/dL Platelets 145 145 - 357 x10(3)/mcL RDWSD 53.2 (H) 36.0 - 45.0 fL RDWCV 15.9 (H) 11.4 - 13.8 % MPV 9.0 7.6 - 12.9 fL nRBC % Auto 0.0 % nRBC Abs Auto 0.000 0.000 - 0.000 x10(3)/mcL Differential, Automated Result Value Ref Range Neutrophils % 78.7 % Neutr Abs (ANC) 12.22 (H) 1.70 - 6.10 x10(3)/mcL Lymphocytes % 10.3 % Lymphocytes Abs 1.6 0.9 - 3.2 x10(3)/mcL Monocytes % 9.8 % Monocyte Abs 1.5 (H) 0.3 - 0.9 x10(3)/mcL Eosinophils % 0.1 % Eosinophils Abs 0.0 0.0 - 0.4 x10(3)/mcL Basophils % 0.2 % Basophils Abs 0.0 0.0 - 0.1 x10(3)/mcL Immature Gran % 0.90 % Veronika Gran Abs 0.14 (H) 0.00 - 0.04 x10(3)/mcL Blue Tube HOLD Result Value Ref Range Blue Hold Sample in lab. Gold Tube HOLD Result Value Ref Range Gold Hold Sample in lab. Blue Tube HOLD Result Value Ref Range Blue Hold Sample in lab. ABORH Recheck Status Result Value Ref Range ABORH Type Recheck Completed Scan, Peripheral Blood Result Value Ref Range Plat Estimate Normal RBC Morphology Abnormal Ovalocytes 1-5 /HPF [place] Cells 1-5 /HPF Rapid Drug Screen, Urine (RAUL Request) Result Value Ref Range RAUL Conf Requested No RAUL Requested See Comment Urinalysis with reflex Culture Result Value Ref Range Glucose UA 50 (A) Negative mg/dL Protein UA >=500 (A) Negative mg/dL Bilirubin UA Negative Negative mg/dL Urobilinogen UA Normal Normal mg/dL pH UA 6.0 5.0 - 8.0 Blood UA Small (A) Negative mg/dL Ketones UA Negative Negative mg/dL Nitrite UA Negative Negative Leukocytes UA Negative Negative mcL Appearance UA Hazy (A) Clear Spec [place] UA 1.023 1.002 - 1.030 Color UA Yellow Yellow Culture Reflexed No Rapid Drug Screen w/o Confirmation, Urine Result Value Ref Range U Barbiturates Screen None Detected None Detected U Benzodiazepines Screen None Detected None Detected U Cocaine Screen None Detected None Detected U Methadone Metabolites Screen None Detected None Detected U Opiate Screen None Detected None Detected U Cannabinoid Screen None Detected None Detected U Oxycodone Screen None Detected None Detected U Buprenorphine Screen None Detected None Detected U Fentanyl Screen None Detected None Detected U Tricyclics Screen None Detected None Detected U Ethanol Screen None Detected None Detected U Amphetamines Screen None Detected None Detected U Adulterants Screen None Detected None Detected Urinalysis Microscopic Exam Result Value Ref Range RBC UA 21 (H) 0 - 3 /HPF WBC UA 8 (H) 0 - 3 /HPF Bacteria UA Occasional (A) None /HPF Squam Epith UA 1 <=4 /HPF Gran Cast UA 1 (H) <=0 /LPF RADIOLOGY: FAST Scan - negative Film Library- Storage Only CT Chest Abdomen Pelvis Final Result Request For 2nd Read CT Head And Spine Final Result CT cervical spine: No fracture. CT HEAD: No acute intracranial abnormality. Question posttraumatic changes with encephalomalacic changes left anterior temporal lobe. Asymmetric low-attenuation periventricular white matter left greater than right and subtle evidence of volume loss in the left hemisphere raise the question of ischemic change on the left related to left-sided carotid disease. Clinical correlation recommended. Chest AP and Pelvis AP Trauma (Generic) Final Result Prominence of the superior mediastinum may be due to technique. The presence of a mediastinal hematoma is not excluded with this study. Opacity in the medial right lung base may be due to atelectasis, pneumonia, aspiration or contusion. There is contrast material in the bladder suggesting that this patient may have had a prior CT scan today. These results were discussed with Dr. Hernandez at the time of interpretation. Film Library- Storage Only CT Head And Spine Final Result CT Trauma (Generic) (Results Pending) Request For 2nd Read CT Spine (Results Pending) Procedures Performed: Intubation: No [place]aza Cath: No Central Line: No Chest Tube: No Sutures: No Other: I performed the following procedure(s): adult trauma resuscitation. Assessment/Summary of Injuries: 57 y.o. 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 Pt with limb-threatening AVF bleeding and ischemia from tourniquets. Evaluated at bedside w Vascular, who will take to OR as A case for tourniquet takedown, AVF exploration, and likely fasciotomies. Injuries identified on primary and secondary survey include: - LUE AVF bleeding Plan: ?? To OR in critical condition with anticipated transfer to Vascular service after OR, Lida Rodriguez MD, attending ?? NPO ?? Spine status: no restrictions ?? Pain control: edward APAP and prn fentanyl ?? DVT prophylaxis: hold given bleeding ?? GI prophylaxis: H2 donaldo given intubation ?? Tertiary survey in AM ?? DISPO: OR with Vascular, then SICU Sabrina Armas MD 04/06/18 2:21 PM TRAUMA ATTENDING ADDENDUM Pt seen and examined with the resident staff in the trauma bay in response to a TRAUMA 9 activation. I agree with the above note and plan with the following additions/modifications. In brief patient is a 57-year-old gentleman with past medical history notable for a kidney transplant who presents on transfer from outside facility after suffering a traumatic arrest from a presumedbleeding point on his left upper extremity a V fistula. Per report patient had called his family and said he was bleeding from his old fistula site and a neighbor was sent over to look on the patientand found him unresponsive in a pool of blood on his bathroom floor. Local EMS was contacted and arrived and found him bleeding profusely from his left upper extremity AV fistula site for which a tourniquet was placed. Patient underwent CPR to include compressions, epinephrine and volume resuscitation with return of spontaneous circulation. He was brought to the outside facility where the bleeding was still perfused and a second tourniquet was placed on the left upper extremity which eventuallycontrolled the bleeding. Patient was noted there to have a hemoglobin of 4 for which he received 6 units of packed red blood cells and 2 units of FFP. His initial GCS per report was 4 and he was subse quently intubated during the resuscitation. A trauma transfer was requested and accepted. Given weather conditions flight was not available and ground transport was arranged by the transferring facility. Patient arrived here approximately 3 hours from his initial presentation at the outside facility with a total tourniquet time of approximately 180 minutes. He was intubated and collared with a GCS of 12T. Patient was able to follow commands all extremities except for the left upper. Primary survey was intact with initial systolic blood pressure 125. Secondary survey notable for 2 tourniquets in the left upper extremity with no distal flow. He had an ulcerated swollen fistula site on the ventral aspect of his forearm with obvious areas of necrosis and stigmata of recent bleeding. He had nomotor function in his hand. Chest x-ray and pelvis were performed and were without pathology. Outside CT scans were reviewed and on my initial read there is no notable findings other than the transplanted kidney in the right hemipelvis. Vascular surgery was present on patient's arrival and after our primary and secondary surveys we elected to take patient to the operating room for release of the tourniquets while under anesthesia with all operative equipment available for hemostasis. Patient was taken directly from the trauma bay to the OR as an A case with both trauma and vascular surgery.Patient's initial ABG revealed hyperkalemia with a potassium of 6.5 for which insulin and glucose were administered. Patient was in critical condition on transfer to the operating room. documented in this encounter Procedure Notes * Helen Denny RN - 04/27/2018 9:24 AM EDT PICC/Midline Insertion Procedure Note Indications: Anti-infective and Access This insertion was not to replace a malfunctioning catheter. This insertion was not due to a suspected line-associated infection. Location of Procedure: X-Ray Room 11 Risks and Benefits: The risks and benefits of this procedure were reviewed and informed consent was obtained obtained. Time Out: Prior to the start of the procedure, the patient's identity, intended procedure, site/side, correctpatient positioning and presence of the site lucas was confirmed as applicable. The medical history and chart were reviewed to rule out potential contraindications to the planned procedure. Hand Hygiene: The risk analyst did perform hand hygiene prior to line insertion. Catheter type: PICC Lot number: [id number] Procedure Technique: Skin was prepped with chlorhexidine. Skin preparation agent was completely dry at the time of first skin puncture. The following barrier precaution methods were used:large sterile drape, maske/eye shield, large sterile gown, sterile gloves and cap. 2 ml of 1% Lidocaine was used for skin wheal. Ultrasound was used for guidance. Radiographic contrast agent was not injected for vein identification. Procedure Details: Order received for catheter placement. A 4 Fr. single lumen Bard Power catheter was placed into theright basilic vein over a 0.018 inch guidewire using modified seldinger technique and fluoroscopy. Arm circumference was 33 cm at 2 cm above the insertion site. Final catheter length (with trimming): 42 cm Internal: 42 cm External: 0 cm Tip in SVC per DR KESSLER. The line was not placed over a guidewire. Post Procedure: Diagnosis: LUE AVF REPAIR Blood return noted on aspiration of line after placement confirmed. 5 mls of normal saline infused free flowing to gravity via PICC after insertion. Sterile dressing applied: CHG Impregnated Tegaderm. Findings: The patient did tolerate the procedure well. No Complications. Procedure Comments: HELEN DENNY RN 04/27/2018 * Nilda Minaya RN - 04/22/2018 4:04 PM EDTProcedure(s): DRESSING CHANGE, WOUND VAC > 50SQ CM Pre-Procedure Diagnose(s): Arm wound, left, initial encounter Post-Procedure Diagnose(s): Arm wound, left, initial encounter Images from the original note were not included. Pt's left forearm. Pt's left wrist incision. Wound vac dressing completed. Left forearm wound measures [id number] with clean, well granulated base. PANCHITO Eng with plastic surgery was present for dressing change to assess for closure plan, ie flap procedure. Pt tolerated the dressing change well with PO medications. Black sponge (x3) placed to wound bed, covered with plastic and suction was applied @125mmhg continuous. Dry gauze and tape placed over leftwrist incision. * Jose Alejandro Reyna MD - 04/09/2018 9:03 AM EDT [facility] Department of Neurology Critical Care Prolonged EEG Report Name of the Patient: Christy Ambrose Date of : 1960 Date of Service: 04/08 to 04/09/18 Resident/Fellow: none Attending: Waqar BRIEF HISTORY Christy Ambrose is a 57 y.o. year old patient with possible anoxic brain injury. MEDICATIONS Current Facility-Administered Medications Medication Dose Route Frequency Provider Last Rate Last Dose ??? HYDROmorphone (DILAUDID) injection 0.5 mg 0.5 mg Intravenous Once Tim Ogden MD ??? metoprolol tartrate (LOPRESSOR) tablet 50 mg 50 mg Oral Q8H Angelika Tamayo PA 50 mg at 04/09/18 0555 ??? ceFAZolin (ANCEF) 1g in dextrose 5% 50mL 1 g Intravenous Q12H Apple Gutierrez MD 100 mL/hr at 04/09/18 0856 1 g at 04/09/18 0856 ??? LORazepam (ATIVAN) injection 2 mg 2 mg Intravenous Q4H PRN Natalya Minaya MD ??? senna-docusate (PERICOLACE) 8.6-50 mg per tablet 1 tablet 1 tablet Oral BID Natalya Minaya MD1 tablet at 04/08/182201 ??? fosphenytoin (CeREbyx) 100 mg PE/2 mL solution for injection 100 mg PE 100 mg PE Intravenous Q8H John Rose MD 100 mg PE at 04/09/18 0011 ??? HYDROmorphone (DILAUDID) injection 0.3 mg 0.3 mg Intravenous Q4H PRN Natalya Minaya MD 0.3 mgat 04/09/18 0555 ??? levETIRAcetam (KEPPRA) tablet 500 mg 500 mg Oral Daily Natalya Minaya MD 500 mg at 04/08/18 0830 ??? levETIRAcetam (KEPPRA) tablet 250 mg 250 mg Oral Daily Natalya Minaya MD 250 mg at 04/08/182200 ??? levothyroxine (SYNTHROID) tablet 88 mcg 88 mcg Oral QAM Natalya Minaya MD 88 mcg at 04/09/18 0555 ??? pantoprazole (PROTONIX) tablet 20 mg 20 mg Oral BID Natalya Minaya MD 20 mg at 04/09/18 0903 ??? allopurinol (ZYLOPRIM) tablet 150 mg 150 mg Oral Daily Natalya Minaya MD 150 mg at 04/08/18 0835 ??? ondansetron (ZOFRAN) injection 4 mg 4 mg Intravenous Q8H PRN Tim Ogden MD 4 mg at 04/08/18 0401 ??? sodium chloride 0.45% 1,000 mL with sodium bicarbonate 75 mEq infusion Intravenous Continuous Rasta Hernández MD 50 mL/hr at 04/09/18 0652 ??? sodium chloride 0.9 % flush 5 mL 5 mL Intravenous Q12H Natalya Minaya MD 5 mL at 04/09/18 0557 ??? sodium chloride 0.9 % flush 5-20 mL 5-20 mL Intravenous Q1 Min PRN Natalya Minaay MD ??? lidocaine (XYLOCAINE) 10 mg/mL (1 %) injection 3 mg 0.3 mL Subcutaneous Once PRN Natalya Minaya MD ??? acetaminophen (TYLENOL) tablet 1,000 mg 1,000 mg Oral Q8H EDWARD Natalya Minaya MD 1,000 mg at 04/09/18 0555 ??? tacrolimus (PROGRAF) capsule 1 mg 1 mg Oral BID Natalya Minaya MD 1 mg at 04/09/18 0901 ??? mycophenolate (CELLCEPT) capsule 250 mg 250 mg Oral BID Natalya Minaya MD 250 mg at 04/09/18 0556 ??? hydrALAZINE (APRESOLINE) injection 10 mg 10 mg Intravenous Q6H PRN Natalya Minaya MD ??? labetalol (NORMODYNE,TRANDATE) injection 20 mg 20 mg Intravenous Q4H PRN Natalya Minaya MD 20mg at 04/08/18 1745 METHODS A 21 channel digitized electroencephalogram was performed in the Intensive Care Unit by the [facility] Clinical Neurophysiology Laboratory. The 10/20 international system of electrode placement was used and bipolar and referential electrode montages were recorded. In addition to EEG the patient was monitored for EKG and lateral/vertical eye movements. Video was recorded during the session. The duration of the recording was 24 hours. The patient was recorded during wakefulness, drowsiness, and sleep. ELECTROENCEPHALOGRAPHER'S REPORT Background Continuous generalized theta and delta 1-8 Hz Periodic or Rhythmic Patterns There were no generalized or lateralized periodic discharges or rhythmic delta activity. Abnormal Interictal Activity None Clinical Events None Provocative Maneuvers Not performed EKG: normal sinus rhythm INTERPRETATION Generalized slowing of background. CLINICAL CORRELATION This EEG is consistent with diffuse cerebral dysfunction of non-specific etiology. No seizures. JOSE ALEJANDRO REYNA MD 04/09/2018 9:04 AM. * Beth Colunga - 04/08/2018 3:43 PM EDTAssociated Order(s): EEG AWAKE, ASLEEP, DROWSY [facility] Department of Neurology In Patient Routine EEG Report Name of the Patient: Christy Ambrose Date of : 1960 Date of Service: 04/08/2018 Referring physician: John Rose MD BRIEF HISTORY: Christy Ambrose is a 57 y.o. year old patient with couple of L focal twitching which evolved to L head turn and then tonic seizure for 2 minutes. MEDICATIONS: Current Facility-Administered Medications Medication Dose Route Frequency Provider Last Rate Last Dose ??? metoprolol tartrate (LOPRESSOR) tablet 50 mg 50 mg Oral Q8H EDWARD Angelika Aguilera PA 50 mg at 04/08/18 1440 ??? ceFAZolin (ANCEF) 1g in dextrose 5% 50mL 1 g Intravenous Q12H Apple Gutierrez MD ??? LORazepam (ATIVAN) injection 2 mg 2 mg Intravenous Q4H PRN Natalya Minaya MD ??? senna-docusate (PERICOLACE) 8.6-50 mg per tablet 1 tablet 1 tablet Oral BID Natalya Minaya MD ??? fosphenytoin (CeREbyx) 100 mg PE/2 mL 915 mg PE in sodium chloride 0.9% 118.3 mL 10 mg PE/kg Intravenous Once John Rose MD ??? [START ON 04/09/2018] fosphenytoin (CeREbyx) 100 mg PE/2 mL solution for injection 100 mg PE 100mg PE Intravenous Q8H John Rose MD ??? HYDROmorphone (DILAUDID) injection 0.3 mg 0.3 mg Intravenous Q4H PRN Natalya Minaya MD 0.3 mgat 04/08/18 0431 ??? levETIRAcetam (KEPPRA) tablet 500 mg 500 mg Oral Daily Natalya Minaya MD 500 mg at 04/08/18 0830 ??? levETIRAcetam (KEPPRA) tablet 250 mg 250 mg Oral Daily Natalya Minaya MD 250 mg at 04/07/18 2020 ??? levothyroxine (SYNTHROID) tablet 88 mcg 88 mcg Oral QAM Natalya Minaya MD ??? pantoprazole (PROTONIX) tablet 20 mg 20 mg Oral BID Natalya Minaya MD 20 mg at 04/08/18 0837 ??? allopurinol (ZYLOPRIM) tablet 150 mg 150 mg Oral Daily Natalya Minaya MD 150 mg at 04/08/18 0835 ??? ondansetron (ZOFRAN) injection 4 mg 4 mg Intravenous Q8H PRN Tim Ogden MD 4 mg at 04/08/18 0401 ??? sodium chloride 0.45% 1,000 mL with sodium bicarbonate 75 mEq infusion Intravenous Continuous aRsta Hernández MD 50 mL/hr at 04/07/18 1739 ??? chlorhexidine (PERIDEX) 0.12 % oral solution 15 mL 15 mL Oral BID Natalya Minaya MD 15 mL at 04/07/18 0901 ??? sodium chloride 0.9 % flush 5 mL 5 mL Intravenous Q12H Natalya Minaya MD 5 mL at 04/08/18 0600 ??? sodium chloride 0.9 % flush 5-20 mL 5-20 mL Intravenous Q1 Min PRN Natalya Minaya MD ??? lidocaine (XYLOCAINE) 10 mg/mL (1 %) injection 3 mg 0.3 mL Subcutaneous Once PRN Natalya Minaya MD ??? acetaminophen (TYLENOL) tablet 1,000 mg 1,000 mg Oral Q8H EDWARD Natalya Minaya MD 1,000 mg at 04/08/18 1440 ??? tacrolimus (PROGRAF) capsule 1 mg 1 mg Oral BID Natalya Minaya MD 1 mg at 04/08/18 0829 ??? mycophenolate (CELLCEPT) capsule 250 mg 250 mg Oral BID Natalya Minaya MD 250 mg at 04/08/18 0823 ??? hydrALAZINE (APRESOLINE) injection 10 mg 10 mg Intravenous Q6H PRN Natalya Minaya MD ??? labetalol (NORMODYNE,TRANDATE) injection 20 mg 20 mg Intravenous Q4H PRN Natalya Minaya MD METHODS: A 21 channel digitized electroencephalogram was performed in the [facility] Clinical Neurophysiology Laboratory. The 10/20 international system of electrode placement was used and bipolar and referential electrode montages were recorded. In addition to EEG the patient was monitored for EKGand lateral/vertical eye movements. Video was recorded during the session. The duration of the recording was 30 minutes. FOOD SAFETY COORDINATOR'S REPORT: Performed by: AT Patient was not sleep deprived. Sleep was not attained. Photic stimulation was performed. Hyperventilation was not performed. Effort was was not adequate. Movement and other artifact was not significant. Comments: none documented in this encounter ED Notes * Erwin Hernandez MD - 04/06/2018 1:47 PM EDT ED Attending Note: I saw Christymaty Ambrose in conjunction with the trauma team. Please see their note for further details. Briefly, 57 y.o. male presents as a trauma alert for hemorrhagic shock and PEA cardiac arrest secondary to torrential left upper extremity fistula bleeding. Per EMS the patient had a severe amount ofblood loss in the bathroom and bedroom that resulted in PEA cardiac arrest at the scene. He received epinephrine, 2.5 L of normal saline with Ross obtained. Went to the emergency department and then r eceived 6 units of packed red blood cells. Been hemodynamically stable since but had 2 tourniquets on the first tourniquet went up at 9:49 AM. The review of systems is negative other than items noted in the HPI. I reviewed the past medical history, medications, and allergies in Epic. On exam the patient intubated and sedated. Stable vital signs. 2 tourniquets up on the left upper extremity with an ecchymotic area of the fistula. There is no active bleeding. No other signs of trauma. Remainder of his body was covered in a light coating of blood. Results: ?? Blood gas obtained was most likely venous. He had a normal oxygen saturation and I do not think he has a PaO2 in the 30s. ED Course: ?? Evaluated by trauma and vascular surgery. Taken to the operating room. Assessment: 57 y.o. male PA arrest status post hemorrhagic shock from a profusely bleeding left fistula with prolonged tourniquet time. Hemodynamically stable in the emergency department. Was following commands. Going to the OR with vascular surgery into the ICU afterwards. Erwin Hernandez MD 04/06/18 1949 * John Nix RN - 04/06/2018 1:23 PM EDT Pt to OR with RN x2, x 2, and RT. documented in this encounter Miscellaneous Notes * Plan of Care - Margarita Blevins RN - 05/04/2018 1:55 AM EDT Problem: Patient Care Overview Goal: Plan of Care Review Outcome: Ongoing (Interventions Implemented as Appropriate) 04/27/18 1412 05/03/18 1942 Coping/Psychosocial Plan Of Care Reviewed With -- patient Plan of Care Review Progress improving -- OUTCOME EVALUATION NOTE: OUTCOME SUMMARY: Christy has had a good night. Voiding adequate urine. No BM. Reporting pain well controlled; refusing scheduled Tylenol. SBP <160 throughout shift. Neuro checks remain unchanged. Sleeping between care. Will continue to monitor. PLAN MOVING FORWARD: Monitor for signs/symptoms of infection, pain management, encourage IS INDIVIDUALIZED FALL PREVENTION INTERVENTIONS: Patient-specific fall risk factors per assessment: [current deficits]: Recent surgery, generalized weakness, IV tubing Assistance [level of assistance required for transfers and ambulation]: SBA Supervision [direct monitoring required during toileting and ADLs]: Arms reach Surveillance [continuous indirect monitoring]: Mariposa Alfaro within reach, Purposeful rounding Patient-specific fall prevention interventions for sensory deficits provided, if applicable: [X] Yes non-skid socks when OOB CPG GOAL OUTCOME EVALUATION: Goal: Individualization & Mutuality Outcome: Ongoing (Interventions Implemented as Appropriate) 04/10/18 1602 04/18/18 1322 04/26/18 1802 Mutuality/Individual Preferences What Anxieties, Fears or Concerns Do You Have About Your Health or Care? -- -- -- What Questions Do You Have About Your Health or Care? -- -- none What Information Would Help Us Give You More Personalized Care? -- -- none Individualization Patient Specific Goals Walk with PT -- -- Patient Specific Interventions -- Reorient when needed, encourage ambulations -- 04/27/18 0422 Mutuality/Individual Preferences What Anxieties, Fears or Concerns Do You Have About Your Health or Care? My hand still has some numbness. What Questions Do You Have About Your Health or Care? -- What Information Would Help Us Give You More Personalized Care? -- Individualization Patient Specific Goals -- Patient Specific Interventions -- Goal: Fall Prevention-Safe Patient Handling Outcome: Ongoing (Interventions Implemented as Appropriate) 05/03/18 0900 05/03/18 1500 05/03/181941 Daily Care Interventions Self-Care Promotion independence encouraged -- -- Toribio Fall Risk History of Falling -- -- 25 Secondary Diagnosis -- -- 15 Ambulatory Aids -- -- 0 Intravenous Therapy/Heparin/Saline Lock -- -- 20 Gait/Transferring -- -- 10 Mental Status -- -- 15 Score -- -- 85 OTHER Toribio Fall Risk -- -- High Activity Activity Type -- -- activity adjusted per tolerance Activity Assistance Provided -- -- assistance, stand-by Assistive Device Utilized -- none -- Restraint Interventions Safety Promotion/Fall Prevention -- -- activity supervised;nonskid shoes/slippers when out of bed;safety round/check completed Positioning Body Position -- -- up in chair;independent Goal: Infection Control Outcome: Ongoing (Interventions Implemented as Appropriate) 05/03/181941 Safety Interventions Isolation Precautions standard precautions maintained Infection Prevention environmental surveillance performed;rest/sleep promoted;single patient room provided Coping Strategies Supportive Measures active listening utilized;self-care encouraged;self- responsibility promoted;verbalization of feelings encouraged Goal: Discharge Needs Assessment Outcome: Ongoing (Interventions Implemented as Appropriate) 04/18/18 0355 Discharge Needs Assessment Concerns To Be Addressed care coordination/care conferences;cognitive/perceptual concerns;compliance issue concerns;home safety concerns Readmission Within The Last 30 Days no previous admission in last 30 days Equipment Needed After Discharge none Discharge Facility/Level Of Care Needs rehabilitation facility Current Discharge Risk dependent with mobility/activities of daily living Discharge Disposition still a patient Current Health Outpatient/Agency/Support Group Needs inpatient rehabilitation facility (specify) Anticipated Changes Related to Illness inability to work Activity/Self Care Review of Systems Equipment Currently Used at Home none Living Environment Transportation Available agency transportation Goal: Interdisciplinary Rounds/Family Conf Outcome: Ongoing (Interventions Implemented as Appropriate) 05/03/18 0556 Interdisciplinary Rounds/Family Conf Participants patient;nursing;physician Problem: Seizure Disorder/Epilepsy (Adult) Goal: Signs and Symptoms of Listed Potential Problems Will be Absent, Minimized or Managed (SeizureDisorder/Epilepsy) Signs and symptoms of listed potential problems will be absent, minimized or managed by discharge/transition of care (reference Seizure Disorder/Epilepsy (Adult) CPG). 05/03/18 0556 Seizure Disorder/Epilepsy Problems Assessed (Seizure Disorder/Epilepsy) all Problems Present (Seizure Disorder/Epilepsy) none * Plan of Care - Domi Rodriguez RN - 05/03/2018 5:25 PM EDT Problem: Patient Care Overview Goal: Plan of Care Review 04/27/18 1412 05/03/18 0900 Coping/Psychosocial Plan Of Care Reviewed With -- patient Plan of Care Review Progress improving -- OUTCOME EVALUATION NOTE: OUTCOME SUMMARY: VS stable, systolic pressures below 160 this shift. Pt reports he is very comfortable this shift, has declined both doses of tylenol, will monitor. Pt has been up and ambulating in room, tolerating well. Pt met with mother and brother today, in good spirits. Neuro checks WDL, unchanged from previous shifts. PLAN MOVING FORWARD: Monitor hemodynamic status, activity tolerance, nutritional intake. Monitor wound healing. Administer IV antibiotics as ordered. INDIVIDUALIZED FALL PREVENTION INTERVENTIONS: Patient-specific fall risk factors per assessment: [current deficits]: Weakness, unsteady gait Assistance [level of assistance required for transfers and ambulation]: Standby assist Supervision [direct monitoring required during toileting and ADLs]: Eyes on Surveillance [continuous indirect monitoring]: Purposeful rounding Patient-specific fall prevention interventions for sensory deficits provided, if applicable: N CPG GOAL OUTCOME EVALUATION: * Plan of Care - Torri Angelo RN - 05/03/2018 6:04 AM EDT Problem: Skin Integrity Impairment, Risk/Actual (Adult) Goal: Identify Related Risk Factors and Signs and Symptoms Related risk factors and signs and symptoms are identified upon initiation of Human Response Clinical Practice Guideline (CPG) Outcome: Ongoing (Interventions Implemented as Appropriate) OUTCOME EVALUATION NOTE: OUTCOME SUMMARY: Christy had a good night. A+O x4. Denies chest pain, SOB, and N/V. 2/10 pain, reports tolerable. LUE elevated on pillows. LUE extremity warm and patient able to move fingers. Dressing C/D/I. LLE dressing with dried serosanguinous drainage. Pulses +. UOP adequate. BM x1. Ambulating to the bathroom. Using IS. Will continue to monitor PLAN MOVING FORWARD: D/C to rehab Monitor I&Os Ambulate INDIVIDUALIZED FALL PREVENTION INTERVENTIONS: Patient-specific fall risk factors per assessment: [current deficits]: PICC, generalized weakness, impulsive at times Assistance [level of assistance required for transfers and ambulation]: SBA Supervision [direct monitoring required during toileting and ADLs]: Eyes on Surveillance [continuous indirect monitoring]: Angelina, mariela rounding, near nursing station Patient-specific fall prevention interventions for sensory deficits provided, if applicable: [X] Yes bed alarm, call light, lighting adjusted, near nursing station CPG GOAL OUTCOME EVALUATION: Goal: Skin Integrity/Wound Healing Patient will demonstrate the desired outcomes by discharge/transition of care. Outcome: Ongoing (Interventions Implemented as Appropriate) 04/25/18 0416 Skin Integrity Impairment, Risk/Actual (Adult) Skin Integrity/Wound Healing making progress toward outcome Problem: Patient Care Overview Goal: Plan of Care Review Outcome: Ongoing (Interventions Implemented as Appropriate) 04/27/18 1412 05/02/18 1913 Coping/Psychosocial Plan Of Care Reviewed With -- patient Plan of Care Review Progress improving -- Goal: Fall Prevention-Safe Patient Handling Outcome: Ongoing (Interventions Implemented as Appropriate) 05/02/18 1900 05/02/18 1913 05/03/18 0500 Daily Care Interventions Self-Care Promotion independence encouraged;BADL personal objects within reach;BADL personal routines maintained -- -- Toribio Fall Risk History of Falling -- 25 -- Secondary Diagnosis -- 15 -- Ambulatory Aids -- 0 -- Intravenous Therapy/Heparin/Saline Lock -- 20 -- Gait/Transferring -- 10 -- Mental Status -- 15 -- Score -- 85 -- OTHER Toribio Fall Risk -- High -- Activity Activity Type -- -- -- Activity Assistance Provided -- -- -- Assistive Device Utilized -- -- -- Restraint Interventions Safety Promotion/Fall Prevention -- -- safety round/check completed Positioning Body Position independent -- -- 05/03/18 0550 Daily Care Interventions Self-Care Promotion -- Toribio Fall Risk History of Falling -- Secondary Diagnosis -- Ambulatory Aids -- Intravenous Therapy/Heparin/Saline Lock -- Gait/Transferring -- Mental Status -- Score -- OTHER Toribio Fall Risk -- Activity Activity Type ambulated to bathroom Activity Assistance Provided assistance, stand-by Assistive Device Utilized none Restraint Interventions Safety Promotion/Fall Prevention -- Positioning Body Position -- Goal: Infection Control Outcome: Ongoing (Interventions Implemented as Appropriate) 05/02/18 19005/02/18 191 Safety Interventions Isolation Precautions standard precautions maintained -- Infection Prevention single patient room provided;rest/sleep promoted;environmental surveillance performed -- Coping Strategies Supportive Measures -- active listening utilized;relaxation techniques promoted;self-responsibilitypromoted;self-care encouraged;decision-making supported Goal: Interdisciplinary Rounds/Family Conf Outcome: Ongoing (Interventions Implemented as Appropriate) 05/03/18 0556 Interdisciplinary Rounds/Family Conf Participants patient;nursing;physician Problem: Seizure Disorder/Epilepsy (Adult) Goal: Signs and Symptoms of Listed Potential Problems Will be Absent, Minimized or Managed (SeizureDisorder/Epilepsy) Signs and symptoms of listed potential problems will be absent, minimized or managed by discharge/transition of care (reference Seizure Disorder/Epilepsy (Adult) CPG). Outcome: Ongoing (Interventions Implemented as Appropriate) 05/03/18 0556 Seizure Disorder/Epilepsy Problems Assessed (Seizure Disorder/Epilepsy) all Problems Present (Seizure Disorder/Epilepsy) none * Care Management - Padmini Ruiz RN - 05/02/2018 5:17 PM EDT CM met briefly with patient to update him that [facility] in [place], [place] is reviewing him for possible admission this week. Pt was appreciative for this news. Pt has filed for LTC Medicaid with [facility]. Pt's staff nurse Lalitha mensah. I was going to call pt's brother Lucas to discuss. [employer] M[employer] WORKERSam Wan had just talked with pt's brother and mother Ilda and informed me that a tentative family meeting has been set up for tomorrow at 3:00 pm. CM will be part of the meeting; will continue to follow. Padmini Ruiz, SAVANNA [phone] * Plan of Care - Naz Robbins RN - 05/02/2018 2:08 AM EDT OUTCOME EVALUATION NOTE: OUTCOME SUMMARY: Christy has had a good night. VSS. BP wnl. Wound vac in place to -125 on left arm. Arm elevated on pillows. OOB SBA to use the bathroom and ambulate around the unit. Using a bed alarm. BM in the early evening. No reports of pain. Refused midnight tylenol. Hopeful to have wound vac removed 05/02. Will continue to monitor and assess. PLAN MOVING FORWARD: Discharge planning to rehab Wound vac removal INDIVIDUALIZED FALL PREVENTION INTERVENTIONS: Patient-specific fall risk factors per assessment: [current deficits]: Wound vac, unsteady gait dueto past TBI Assistance [level of assistance required for transfers and ambulation]: SBA Supervision [direct monitoring required during toileting and ADLs]: Eyes on Surveillance [continuous indirect monitoring]: moses Alfaroful rounding CPG GOAL OUTCOME EVALUATION: Goal: Individualization & Mutuality Outcome: Ongoing (Interventions Implemented as Appropriate) 04/10/18 1602 04/18/18 1322 04/26/18 1802 Mutuality/Individual Preferences What Anxieties, Fears or Concerns Do You Have About Your Health or Care? -- -- -- What Questions Do You Have About Your Health or Care? -- -- none What Information Would Help Us Give You More Personalized Care? -- -- none Individualization Patient Specific Goals Walk with PT -- -- Patient Specific Interventions -- Reorient when needed, encourage ambulations -- 04/27/18 0422 Mutuality/Individual Preferences What Anxieties, Fears or Concerns Do You Have About Your Health or Care? My hand still has some numbness. What Questions Do You Have About Your Health or Care? -- What Information Would Help Us Give You More Personalized Care? -- Individualization Patient Specific Goals -- Patient Specific Interventions -- Goal: Fall Prevention-Safe Patient Handling Outcome: Ongoing (Interventions Implemented as Appropriate) 05/01/18 0831 05/01/18199905/01/182025 Daily Care Interventions Self-Care Promotion -- independence encouraged -- Toribio Fall Risk History of Falling -- 25 -- Secondary Diagnosis -- 15 -- Ambulatory Aids -- 0 -- Intravenous Therapy/Heparin/Saline Lock -- 20 -- Gait/Transferring -- 10 -- Mental Status -- 15 -- Score -- 85 -- OTHER Toribio Fall Risk -- High -- Activity Activity Type -- activity encouraged -- Activity Assistance Provided assistance, 1 person -- -- Assistive Device Utilized -- -- none Restraint Interventions Safety Promotion/Fall Prevention -- activity supervised -- Positioning Body Position -- independent -- Goal: Infection Control Outcome: Ongoing (Interventions Implemented as Appropriate) 05/01/181999 Safety Interventions Isolation Precautions standard precautions maintained Infection Prevention environmental surveillance performed Coping Strategies Supportive Measures active listening utilized Goal: Discharge Needs Assessment Outcome: Ongoing (Interventions Implemented as Appropriate) 04/18/18 0355 Discharge Needs Assessment Concerns To Be Addressed care coordination/care conferences;cognitive/perceptual concerns;compliance issue concerns;home safety concerns Readmission Within The Last 30 Days no previous admission in last 30 days Equipment Needed After Discharge none Discharge Facility/Level Of Care Needs rehabilitation facility Current Discharge Risk dependent with mobility/activities of daily living Discharge Disposition still a patient Current Health Outpatient/Agency/Support Group Needs inpatient rehabilitation facility (specify) Anticipated Changes Related to Illness inability to work Activity/Self Care Review of Systems Equipment Currently Used at Home none Living Environment Transportation Available agency transportation Goal: Interdisciplinary Rounds/Family Conf Outcome: Ongoing (Interventions Implemented as Appropriate) 04/25/18 0416 Interdisciplinary Rounds/Family Conf Participants nursing;patient Problem: Seizure Disorder/Epilepsy (Adult) Goal: Signs and Symptoms of Listed Potential Problems Will be Absent, Minimized or Managed (SeizureDisorder/Epilepsy) Signs and symptoms of listed potential problems will be absent, minimized or managed by discharge/transition of care (reference Seizure Disorder/Epilepsy (Adult) CPG). Outcome: Ongoing (Interventions Implemented as Appropriate) 04/26/18 0800 Seizure Disorder/Epilepsy Problems Assessed (Seizure Disorder/Epilepsy) all Problems Present (Seizure Disorder/Epilepsy) none Problem: Health Knowledge, Opportunity to Enhance (Adult,NICU,,Obstetrics,Pediatric) Goal: Knowledgeable about Health Subject/Topic Patient will demonstrate the desired outcomes by discharge/transition of care. Outcome: Ongoing (Interventions Implemented as Appropriate) 04/30/18 1903 Health Knowledge, Opportunity to Enhance (Adult,NICU,,Obstetrics,Pediatric) Knowledgeable about Health Subject/Topic making progress toward outcome * Plan of Care - Dania Harry RN - 05/01/2018 5:43 PM EDT Problem: Patient Care Overview Goal: Plan of Care Review Outcome: Ongoing (Interventions Implemented as Appropriate) 05/01/18 1711 Coping/Psychosocial Plan Of Care Reviewed With patient OUTCOME EVALUATION NOTE: OUTCOME SUMMARY: Christy had a good day. He had a visit from his brother. Pain is well controlled. Wound vac alerted there was a leak. Wound vac dressing reinforced. Vitals stable. PLAN MOVING FORWARD: Waiting to find a rehab. While pt is here, continue to monitor for signs and sx of infection, I&Os, and vitals. INDIVIDUALIZED FALL PREVENTION INTERVENTIONS: Patient-specific fall risk factors per assessment: [current deficits]: Wound vac Assistance [level of assistance required for transfers and ambulation]: SBA Supervision [direct monitoring required during toileting and ADLs]: Eyes on Surveillance [continuous indirect monitoring]: Hourly rounding and masimo Patient-specific fall prevention interventions for sensory deficits provided, if applicable: Yes. Non slip socks. Call daniels within reach. Personal items within reach. Bed alarm on. CPG GOAL OUTCOME EVALUATION: * Consult Note - Clemencia Parikh RN - 05/01/2018 2:39 PM EDT PICC Dressing Change [ ] 24 hour [ ] Weekly [ x ] PRN PICC dressing change completed as per [facility] protocol. yes Positive pressure displacement connector (Max Plus) was changed. NO Mid arm circumference: [30.5 ] cm at [ 2 ] cm above the insertion site. External catheter measurement: [ 0 ] cm. Internal catheter measurement (per insertion note): [ ] cm. Dressing type: [x ] Transparent with CHG [ ] Transparent with biopatch [ ] Other Site condition: [x ] Site is without redness, drainage, edema and pain/tenderness. [ ] Other: Procedure was tolerated: [x ] Well [ ] Other IMAGE taken, cannot locate. * Plan of Care - Crystal Chatman RN - 05/01/2018 2:20 AM EDT Problem: Patient Care Overview Goal: Plan of Care Review Outcome: Ongoing (Interventions Implemented as Appropriate) 04/27/18 1412 04/30/182025 Coping/Psychosocial Plan Of Care Reviewed With -- patient Plan of Care Review Progress improving -- OUTCOME EVALUATION NOTE: OUTCOME SUMMARY: Christy had an uneventful night. Tolerating minimal pain with scheduled meds. SBP's wnl. Palpable pulses, wound vac intact. UOP adequate, 1 BM. Pt has been appropriately using his callbell overnight. Denies SOB/CP/nausea, will continue to monitor. PLAN MOVING FORWARD: Encourage ambulation/repositioning, monitor pain, monitor I/O INDIVIDUALIZED FALL PREVENTION INTERVENTIONS: Patient-specific fall risk factors per assessment: [current deficits]: PICC, wound vac, impulsiveness Assistance [level of assistance required for transfers and ambulation]: SBA Supervision [direct monitoring required during toileting and ADLs]: Eyes on, arms reach Surveillance [continuous indirect monitoring]: Frequent rounding, call daniels within reach Patient-specific fall prevention interventions for sensory deficits provided, if applicable: [X] N/A CPG GOAL OUTCOME EVALUATION: * Plan of Care - Negrita French RN - 04/30/2018 7:21 PM EDT Problem: Skin Integrity Impairment, Risk/Actual (Adult) Goal: Identify Related Risk Factors and Signs and Symptoms Related risk factors and signs and symptoms are identified upon initiation of Human Response Clinical Practice Guideline (CPG) Outcome: Ongoing (Interventions Implemented as Appropriate) 04/18/18 0355 Skin Integrity Impairment, Risk/Actual Skin Integrity Impairment, Risk/Actual: Related Risk Factors cognitive impairment;edema;surgery/procedure;traumatic injury Signs and Symptoms (Skin Integrity Impairment) edema;inflammation OUTCOME EVALUATION NOTE: OUTCOME SUMMARY: Pt had a good day, AOx4, is forgetful at times. VSS, PRN hydralazine given x1 for SBP>160. WoundVac c/d/i -125 -air leak. Tolerating PO intake and has adequate output and +bm this shift. Pt c/o of minimal pain in L arm that was relieved with scheduled tylenol. Pt denies sob, cp, fever chills, numbness or tingling. Will continue to monitor. PLAN MOVING FORWARD: Monitor for signs and symptoms of infection, bleeding and pain. Encourage IS and ambulation INDIVIDUALIZED FALL PREVENTION INTERVENTIONS: Patient-specific fall risk factors per assessment: [current deficits]: IV tubing, recent surgery, generalized weakness and chronic condition. Assistance [level of assistance required for transfers and ambulation]: 1 assit Supervision [direct monitoring required during toileting and ADLs]: Eyes on, hands on, bed alarm Surveillance [continuous indirect monitoring]: Call daniels in reach, purposeful rounding, masimo Patient-specific fall prevention interventions for sensory deficits provided, if applicable: [X] Yes Lighting adjusted for tasks, non-skid socks when out of bed CPG GOAL OUTCOME EVALUATION: Ongoing Goal: Skin Integrity/Wound Healing Patient will demonstrate the desired outcomes by discharge/transition of care. Outcome: Ongoing (Interventions Implemented as Appropriate) 04/25/18 0416 Skin Integrity Impairment, Risk/Actual (Adult) Skin Integrity/Wound Healing making progress toward outcome Problem: Patient Care Overview Goal: Plan of Care Review Outcome: Ongoing (Interventions Implemented as Appropriate) 04/27/18 1412 04/30/18 0830 Coping/Psychosocial Plan Of Care Reviewed With -- patient Plan of Care Review Progress improving -- Goal: Individualization & Mutuality Outcome: Ongoing (Interventions Implemented as Appropriate) 04/10/18 1602 04/18/18 1322 04/26/18 1802 Mutuality/Individual Preferences What Anxieties, Fears or Concerns Do You Have About Your Health or Care? -- -- -- What Questions Do You Have About Your Health or Care? -- -- none What Information Would Help Us Give You More Personalized Care? -- -- none Individualization Patient Specific Goals Walk with PT -- -- Patient Specific Interventions -- Reorient when needed, encourage ambulations -- 04/27/18 0422 Mutuality/Individual Preferences What Anxieties, Fears or Concerns Do You Have About Your Health or Care? My hand still has some numbness. What Questions Do You Have About Your Health or Care? -- What Information Would Help Us Give You More Personalized Care? -- Individualization Patient Specific Goals -- Patient Specific Interventions -- Goal: Fall Prevention-Safe Patient Handling Outcome: Ongoing (Interventions Implemented as Appropriate) 04/29/18209904/30/18 0830 04/30/18 1033 Daily Care Interventions Self-Care Promotion independence encouraged -- -- Toribio Fall Risk History of Falling -- 0 -- Secondary Diagnosis -- 15 -- Ambulatory Aids -- 0 -- Intravenous Therapy/Heparin/Saline Lock -- 20 -- Gait/Transferring -- 0 -- Mental Status -- 15 -- Score -- 50 -- OTHER Toribio Fall Risk -- High -- Activity Activity Type -- -- ambulated in chung Activity Assistance Provided -- -- independent Assistive Device Utilized -- -- none Restraint Interventions Safety Promotion/Fall Prevention -- activity supervised -- Positioning Body Position independent -- -- Goal: Infection Control Outcome: Ongoing (Interventions Implemented as Appropriate) 04/29/18209904/30/18 0830 Safety Interventions Isolation Precautions standard precautions maintained -- Infection Prevention environmental surveillance performed;rest/sleep promoted;single patient room provided -- Coping Strategies Supportive Measures -- active listening utilized Goal: Discharge Needs Assessment Outcome: Ongoing (Interventions Implemented as Appropriate) 04/18/18 0355 Discharge Needs Assessment Concerns To Be Addressed care coordination/care conferences;cognitive/perceptual concerns;compliance issue concerns;home safety concerns Readmission Within The Last 30 Days no previous admission in last 30 days Equipment Needed After Discharge none Discharge Facility/Level Of Care Needs rehabilitation facility Current Discharge Risk dependent with mobility/activities of daily living Discharge Disposition still a patient Current Health Outpatient/Agency/Support Group Needs inpatient rehabilitation facility (specify) Anticipated Changes Related to Illness inability to work Activity/Self Care Review of Systems Equipment Currently Used at Home none Living Environment Transportation Available agency transportation Goal: Interdisciplinary Rounds/Family Conf Outcome: Ongoing (Interventions Implemented as Appropriate) 04/25/18 0416 Interdisciplinary Rounds/Family Conf Participants nursing;patient Problem: Seizure Disorder/Epilepsy (Adult) Goal: Signs and Symptoms of Listed Potential Problems Will be Absent, Minimized or Managed (SeizureDisorder/Epilepsy) Signs and symptoms of listed potential problems will be absent, minimized or managed by discharge/transition of care (reference Seizure Disorder/Epilepsy (Adult) CPG). Outcome: Ongoing (Interventions Implemented as Appropriate) 04/26/18 0800 Seizure Disorder/Epilepsy Problems Assessed (Seizure Disorder/Epilepsy) all Problems Present (Seizure Disorder/Epilepsy) none Problem: Health Knowledge, Opportunity to Enhance (Adult,NICU,[place],Obstetrics,Pediatric) Goal: Knowledgeable about Health Subject/Topic Patient will demonstrate the desired outcomes by discharge/transition of care. Outcome: Ongoing (Interventions Implemented as Appropriate) 04/30/18 1903 Health Knowledge, Opportunity to Enhance (Adult,NICU,[place],Obstetrics,Pediatric) Knowledgeable about Health Subject/Topic making progress toward outcome * Plan of Care - Caitlin Geller RN - 04/30/2018 3:38 AM EDT Problem: Skin Integrity Impairment, Risk/Actual (Adult) Goal: Identify Related Risk Factors and Signs and Symptoms Related risk factors and signs and symptoms are identified upon initiation of Human Response Clinical Practice Guideline (CPG) Outcome: Ongoing (Interventions Implemented as Appropriate) 04/18/18 0355 Skin Integrity Impairment, Risk/Actual Skin Integrity Impairment, Risk/Actual: Related Risk Factors cognitive impairment;edema;surgery/procedure;traumatic injury Signs and Symptoms (Skin Integrity Impairment) edema;inflammation Goal: Skin Integrity/Wound Healing Patient will demonstrate the desired outcomes by discharge/transition of care. Outcome: Ongoing (Interventions Implemented as Appropriate) 04/25/18 0416 Skin Integrity Impairment, Risk/Actual (Adult) Skin Integrity/Wound Healing making progress toward outcome Problem: Patient Care Overview Goal: Plan of Care Review Outcome: Ongoing (Interventions Implemented as Appropriate) 04/27/18 1412 04/29/18 2018 Coping/Psychosocial Plan Of Care Reviewed With -- patient Plan of Care Review Progress improving -- OUTCOME EVALUATION NOTE: OUTCOME SUMMARY: Patient ambulated multiple times around unit, supervision needed so he didn't leave unit. Wound vacto left lower arm at 125mmHg. Pain 2/10 with scheduled tylenol. Voiding adequate amounts of yellow urine. Baseline forgetfulness at times, impulsive so bed/chair alarm on. PLAN MOVING FORWARD: Continue to monitor wound site, and wound vac. INDIVIDUALIZED FALL PREVENTION INTERVENTIONS: Patient-specific fall risk factors per assessment: [current deficits]: Impulsive, needs assistance getting out of bed or chair with wound vac. Assistance [level of assistance required for transfers and ambulation]: 1 person standby assist in room, Independent in hallway, wound vac. non-skid shoes/slippers Supervision [direct monitoring required during toileting and ADLs]: Eyes on, hands on Surveillance [continuous indirect monitoring]: Purposeful rounding, call daniels in reach, direct observation, bed/chair alarm Patient-specific fall prevention interventions for sensory deficits provided, if applicable: Lighting adjusted for task/safety CPG GOAL OUTCOME EVALUATION: Goal: Fall Prevention-Safe Patient Handling Outcome: Ongoing (Interventions Implemented as Appropriate) 04/29/18 2100 Daily Care Interventions Self-Care Promotion independence encouraged Toribio Fall Risk History of Falling 0 Secondary Diagnosis 15 Ambulatory Aids 0 Intravenous Therapy/Heparin/Saline Lock 20 Gait/Transferring 0 Mental Status 15 Score 50 OTHER Toribio Fall Risk High Activity Activity Type activity adjusted per tolerance;ambulated in chung;up ad kaylie Activity Assistance Provided independent Assistive Device Utilized none Restraint Interventions Safety Promotion/Fall Prevention activity supervised;fall prevention program maintained;nonskid shoes/slippers when out of bed;safety round/check completed;muscle strengthening facilitated Positioning Body Position independent Goal: Infection Control Outcome: Ongoing (Interventions Implemented as Appropriate) 04/29/18201704/29/18 2100 Safety Interventions Isolation Precautions -- standard precautions maintained Infection Prevention -- environmental surveillance performed;rest/sleep promoted;single patient room provided Coping Strategies Supportive Measures active listening utilized;positive reinforcement provided;self-care encouraged;verbalization of feelings encouraged -- Goal: Interdisciplinary Rounds/Family Conf Outcome: Ongoing (Interventions Implemented as Appropriate) 04/25/18 0416 Interdisciplinary Rounds/Family Conf Participants nursing;patient Problem: Seizure Disorder/Epilepsy (Adult) Goal: Signs and Symptoms of Listed Potential Problems Will be Absent, Minimized or Managed (SeizureDisorder/Epilepsy) Signs and symptoms of listed potential problems will be absent, minimized or managed by discharge/transition of care (reference Seizure Disorder/Epilepsy (Adult) CPG). Outcome: Ongoing (Interventions Implemented as Appropriate) 04/26/18 0800 Seizure Disorder/Epilepsy Problems Assessed (Seizure Disorder/Epilepsy) all Problems Present (Seizure Disorder/Epilepsy) none * Plan of Care - Dania aHrry RN - 04/29/2018 6:40 PM EDT Problem: Patient Care Overview Goal: Plan of Care Review Outcome: Ongoing (Interventions Implemented as Appropriate) 04/27/18 1412 04/29/18 1233 Coping/Psychosocial Plan Of Care Reviewed With -- patient Plan of Care Review Progress improving -- OUTCOME EVALUATION NOTE: OUTCOME SUMMARY: Christy did not have any impulsive activity today. Did want to go on a walk alone to the cafe. It was suggested that he does not leave the floor by himself because he sometimes forgets about having wound vac. Patient's vitals were stable throughout the day. Adequate urine output. Wound vac on and intact. PLAN MOVING FORWARD: Continue to monitor I&Os, and vitals. * Plan of Care - Crystal Chatman RN - 04/29/2018 3:10 AM EDT Problem: Patient Care Overview Goal: Plan of Care Review Outcome: Ongoing (Interventions Implemented as Appropriate) 04/27/18 1412 04/28/18 2100 Coping/Psychosocial Plan Of Care Reviewed With -- patient Plan of Care Review Progress improving -- OUTCOME EVALUATION NOTE: OUTCOME SUMMARY: Christy had an uneventful night, pt able to sleep in between care. A+Ox4, pulses palpable, wound vac intact. UOP adequate, no BM. Denies SOB/CP/nausea, will continue to monitor. PLAN MOVING FORWARD: Encourage ambulation/repositioning, monitor pain INDIVIDUALIZED FALL PREVENTION INTERVENTIONS: Patient-specific fall risk factors per assessment: [current deficits]: PICC, wound vac, impulsive Assistance [level of assistance required for transfers and ambulation]: SBA Supervision [direct monitoring required during toileting and ADLs]: Eyes on, arms reach Surveillance [continuous indirect monitoring]: Frequent rounding, call daniels within reach Patient-specific fall prevention interventions for sensory deficits provided, if applicable: [X] N/A CPG GOAL OUTCOME EVALUATION: * Plan of Care - Sagrario Palomino RN - 04/28/2018 6:58 PM EDT Problem: Skin Integrity Impairment, Risk/Actual (Adult) Intervention: Promote/Optimize Nutrition 04/25/18 0915 Hygiene Care Oral Care teeth brushed Intervention: Prevent/Manage Excess Moisture 04/27/18 1458 04/28/18 08 Hygiene Care Perineal Care perineal area cleansed -- Bathing/Skin Care -- bath, chlorhexidine Skin Interventions Skin Protection -- adhesive use limited Intervention: Prevent/Minimize Sheer/Friction Injuries 04/28/18 08 Positioning Positioning/Transfer Devices pillows Skin Interventions Pressure Reduction Devices pressure-redistributing mattress utilized Pressure Reduction Techniques frequent weight shift encouraged Goal: Identify Related Risk Factors and Signs and Symptoms Related risk factors and signs and symptoms are identified upon initiation of Human Response Clinical Practice Guideline (CPG) 04/18/18 0355 Skin Integrity Impairment, Risk/Actual Skin Integrity Impairment, Risk/Actual: Related Risk Factors cognitive impairment;edema;surgery/procedure;traumatic injury Signs and Symptoms (Skin Integrity Impairment) edema;inflammation Goal: Skin Integrity/Wound Healing Patient will demonstrate the desired outcomes by discharge/transition of care. 04/25/18 0416 Skin Integrity Impairment, Risk/Actual (Adult) Skin Integrity/Wound Healing making progress toward outcome Problem: Patient Care Overview Goal: Plan of Care Review 04/27/18 1412 04/28/18 08 Coping/Psychosocial Plan Of Care Reviewed With -- patient Plan of Care Review Progress improving -- Comments: Patient used call daniels for all transfers today, wound vac to left arm CD&I, Patient denied pain. * Plan of Care - Crystal Chatman RN - 04/28/2018 2:27 AM EDT Problem: Patient Care Overview Goal: Plan of Care Review Outcome: Ongoing (Interventions Implemented as Appropriate) 04/27/18 1412 04/27/18 2115 Coping/Psychosocial Plan Of Care Reviewed With -- patient Plan of Care Review Progress improving -- OUTCOME EVALUATION NOTE: OUTCOME SUMMARY: Christy had an uneventful night, pt able to sleep in between care. Tolerating minimal pain with scheduled meds. Neuro checks benign. SBP in 150's. Wound vac intact, pulses palpable. UOP adequate, no BM, passing flatus. Denies SOB/CP/nausea, will continue to monitor. @0645 - pt reported chest pain that has started a couple days ago. VSS, A+Ox4, denies SOB/nausea.MD Jacobsen aware, stat EKG ordered. PLAN MOVING FORWARD: Encourage ambulation/repositioning, monitor pain, monitor I/O INDIVIDUALIZED FALL PREVENTION INTERVENTIONS: Patient-specific fall risk factors per assessment: [current deficits]: IV sites, wound vac, impulsive, PICC Assistance [level of assistance required for transfers and ambulation]: SBA Supervision [direct monitoring required during toileting and ADLs]: Eyes on, hands on, arms reach Surveillance [continuous indirect monitoring]: Frequent rounding, call daniels within reach Patient-specific fall prevention interventions for sensory deficits provided, if applicable: [X] N/A CPG GOAL OUTCOME EVALUATION: * Care Management - North Leong RN - 04/27/2018 3:19 PM EDT OFFICE OF CARE MANAGEMENT/Fat Pressroom Worker/PROGRESS NOTE e-DH reviewed. Report received from vascular. 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 - Metronidazole 500mg BID - Ciprofloxacin 500mg BID - Continue to follow cultures. - Will determine the length of treatment duration prior to discharge. Wound vac to left arm. CM Plan: I have spoken to Ilda/his Mom and she states he CANnot come back to live with her. She is seeking to move to assisted living herself and states it is too much for her. She also states that the landlord of her apartment is forbidding him to come back based on the episode of bleeding that broughthim in. Plan is to look for Group Home Care and I have submitted to other facilities today. Will wait for a reply for bed offer. Plan: CM will continue to follow for coordination of care and to facilitate discharge planning. * Plan of Care - Dania Oliveira OTA - 04/27/2018 2:22 PM EDT Occupational Therapy Treatment Note Treatment Number OT: (P) 5 Pertinent History of Current Problem: (P) Christy Ambrose is a 57 y.o. 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 Precautions/Restrictions: (P) fall, weight bearing Precautions Comments: (P) NWB LUE; hx of TBI's Assessment: Pt seen for skilled OT interventions. Session focused on increasing endurance and activity tolerance to promote health maintenance. Pt continues to make good progress towards his OT goalsand benefits from frequent reminders of his NWB of LUE. Pt will benefit from ongoing therapeutic interventions to achieve pt's and therapy goals. Please refer to associated flowsheet data listed below for treatment session details. 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 Hearing Precautions/Limitations WFL Precautions/Restrictions fall;weight bearing Precautions Comments NWB LUE; hx of TBI's Limitations/Impairments safety/cognitive Treatment Number OT 5 Vital Signs O2 Device RA Vision Assessment/Intervention Additional Documentation Vision Assessment/Intervention (Group) Cognitive Assessment Interventions Behavior/Mood Observations (Cognitive) behavior appropriate to situation;alert;cooperative Orientation Status (Cognitive) oriented x 4 Attention (Cognitive) mild impairment;distractible;needs cues to redirect Follows Commands/Answers Questions (Cognitive) 100% of the time;able to follow single-step instructions;needs increased time Personal Safety (Cognitive) decreased awareness, need for assist (slightly impulsive ) Cognitive Assessment/Interventions Comment pt unable to recall precautions; continues to benefit from frequent MWB reminders Pain Scale/Rating Pain Assessment Scale Numbers (Numeric Rating Pain Scale) Pain Level 0 Pain Goal 0 Bed Mobility Assessment/Treatment Assistive Device (Bed Mobility) bed rails [id number] [place] (Bed Mobility) conditional independence Impairments (Bed Mobility) flexibility decreased;ROM (range of motion) decreased;strength decreased Comment (Bed Mobility) HOB slightyly elevated; vc's to adjust HOB Transfer Assessment/Treatment Chair-Bed [place] (Transfers) contact guard assist [place] (Sit-Stand Transfers) contact guard assist [place] (Stand-Sit Transfers) contact guard assist [place] (Toilet Transfers) (pt continues to report ambulating to bathrom for toileting) Impairments (Transfers) balance impaired;ROM (range of motion) decreased;strength decreased Gait Assessment/Treatment [place] (Gait) contact guard assist Assistive Device (Gait) gait belt Distance in Feet (Gait) 750' Safety Issues (Gait) balance decreased during turns;step length decreased Impairments (Gait) balance impaired;coordination impaired Comment (Gait) mild ataxia; no lob noted; assist to carry wound vac Lower Body Dressing Assessment/Training Position (LB Dressing) standing [place] Level (LB Dressing) contact guard assist Impairments (LB Dressing) flexibility decreased;coordination impaired Comment (LB Dressing) pt demonstrated ability to readust pants to waist height however required assist to swetha pants 2' impaired coordination of LUE Toileting Assessment/Training Comment (Toileting) pt reports continuing to ambulate to bathroom for all toileting needs Grooming Assessment/Training Comment (Grooming) pt reports performing oral / hair care standing sink side Balance Skills Training Sitting Balance: Static good balance Sitting Balance: Dynamic fair balance Hwn-ce-Stcha Balance fair balance Standing Balance: Static fair balance Standing Balance: Dynamic fair balance Coping Observed Emotional State accepting;calm;cooperative Verbalized Emotional State acceptance Plan of Care Review Plan Of Care Reviewed With patient Progress improving Toileting Goal Toileting Goal, Date Established 04/11/18 Toileting Goal, Time to Achieve 2 wks Toileting Goal, Activity Type Patient will complete toileting tasks (hygiene, clothing management, transfers) with supervision and with AE, as needed Toileting Goal, Outcome goal partially met LB Dressing Goal LB Dressing Goal, Date Established 04/11/18 LB Dressing Goal, Time to Achieve 2 wks LB Dressing Goal, Activity Type Patient will don/doff LB clothing with supervision, seated, with AE, as needed LB Dressing Goal, Outcome goal met UB Dressing Goal UB Dressing Goal, Date Established 04/11/18 UB Dressing Goal, Time to Achieve 2 wks UB Dressing Goal, Activity Type Patient will don/doff UB clothing with supervision, seated UB Dressing Goal, Outcome goal ongoing Occupational Therapy Goal OT Goal, Date Established 04/11/18 OT Goal, Time to Achieve 2 wks OT Goal, Activity Type Patient will ambulate household distances with supervision with AD, as needed OT Goal, Additional Goal Patient will maintain precautions independently without verbal cues while participating in functional tasks OT Goal, Outcome goal partially met Clinical Impression Criteria for Skilled Therapeutic Interventions Met yes;treatment indicated Rehab Potential good, to achieve stated therapy goals Therapy Frequency 2-3 times/wk Anticipated Discharge Disposition inpatient rehabilitation facility * Care Management - [place] Leong RN - 04/27/2018 2:15 PM EDT Based on discussions with the multi-disciplinary healthcare team, the patient would benefit from SNF/ level of care at discharge. I have spoken to Ilda/his Mom and she states he CANnot come back to live with her. She is seeking to move to assisted living herself and states it is too much for her.She also states that the landlord of her apartment is forbidding him to come back based on the episode of bleeding that brought him in. ?? I have met with the patient/automotive sales representative to discuss discharge planning needs. I have provided the [facility], Office of Care Management letter from the [facility] pertaining to rehab referrals. I have also provided a letter describing our affiliations within the [facility] and educated them about their right to choose where referrals are placed. ?? I reviewed the different levels of rehab including SNF, swing, acute and LTAC with the patient/automotive sales representative. ?? The patient/automotive sales representative has been provided a list of facilities within their preferred geographic area. ?? I have requested that the patient/automotive sales representative provide at least three choices for referral. ?? The patient/automotive sales representative have requested referrals to: ?? 1. [facility] ?? 2. [facility] ?? 3. [facility]. [place] ?? Expected date of discharge: 3-5 days Note routed to [facility] who will communicate referrals to facilities and provide any required information. * Plan of Care - Helen Denny RN - 04/27/2018 10:22 AM EDT Problem: Health Knowledge, Opportunity to Enhance (Adult,NICU,[place],Obstetrics,Pediatric) Goal: Knowledgeable about Health Subject/Topic Patient will demonstrate the desired outcomes by discharge/transition of care. Peripherally Inserted Central Catheter (PICC) Teaching Sheet Peripherally inserted central catheters ([id number]) (PICC) are used when you need IV (intravenous) medicines and fluids. A catheter is a small flexible plastic tube. The catheter is put in througha vein under your skin. A vein is a tube inside your body that carries blood from the body to the heart. The catheter is usually put into a vein on the inside of your upper arm. Then it is threaded up this vein and ends in the blood vessel near your heart. The PICC catheter may be used for taking blood for laboratory tests. You may also get IV fluids andmedicines quickly and easily. Having the catheter may keep your arm from being stuck many times with a needle. The catheter will have 1-3 small tails (tubes) coming from your arm where the catheter was put in. Why do I need a PICC line or midline catheter? PICC lines are used for long term acute care registered nurse treatments. PICC lines may be used for up to a year. They areoften put in to give you IV medicines at home. You may need a PICC catheter because caregivers cannot use smaller veins in your body. Smaller veins may be damaged, or they may have poor blood flow. ??? Catheters are also used in case of emergency when you would need medicines or fluids very quickly. ??? The following are medicines and treatments you may get when you have a PICC line. ? Antibiotics. These are medicines to prevent infection. ? Frequent blood sample collection. ? IV medicines that would make your smaller veins sore or damaged. ? Receiving IV fluids for a long period of time. ? Pain medicine. ? Total Parenteral Nutrition: This is also called TPN. TPN is a special liquid food that goes directly into your veins. ? Blood ? Chemotherapy (Medicine for cancer) What are the benefits of having a PICC line put in? Having a PICC line may keep your arm from being stuck many times with a needle to draw blood orstart an IV (intravenous catheter) . ??? Through a PICC catheter, you may have blood taken for tests. You may also get IV fluids and medicines quickly and easily. ??? Small veins can be damaged or irritated by certain drugs or nutritional solutions. A PICC line helps to decrease vein irritation from antibiotics, IV pain drugs, or IV cancer drugs. ??? A PICC line can be left in place when you go home. If you go home with a PICC line in place, home care can be set up via the nurse Fat Pressroom Worker to help you. What are possible complications of having a PICC line put in? Some possible complications are: ??? bruising, swelling, or infection in the arm with the PICC line ??? mal-positioned catheter (catheter tip in wrong place) ??? occlusion (blocked catheter) ??? mechanical phlebitis (vein irritation) and thrombosis (clot) Your doctor is the person you should talk to if you have questions about what would happen if you do not choose to have a PICC line put in. Your doctor can talk to you about other choices you may have. What should I expect when it is put in? A written consent that gives your ok to have it put in needs to be signed after you understand thatyou are going to have a PICC put in, and all your questions about the procedure have been answered to your satisfaction. This is a safety feature that the hospital practices before doing procedures. An experienced nurse who has been through special training and education will be putting this catheter in. The procedure is done in a specially equipped room in Interventional Radiology on the third floor. The PICC nurse will first talk to you about any questions that you may have. The PICC nurse will explain to you what is going to be done before starting. Once you arrive in the procedure room in Interventional Radiology, the PICC nurse will then set up for the procedure. She will unwrap the sterile kit and open the needed supplies. A gown and mask andgloves will be worn while putting it in. An ultrasound machine will be used to help guide the catheter in the right place. This machine uses a handle with sound waves to find the vein. The area on your arm where the catheter will be put in is then numbed with a medicine put under your skin with a tiny needle. The nurse will then put in the catheter using fluoroscopy (a type of x-ray) as a guide. Once the catheter is in your vein, it will be threaded up your arm to the area beforeyour heart. While it is being threaded, you may be asked to turn your head. When the catheter is in, the nurse will place a small dressing on the site along with a little sousa which will help keep the catheter in place. After the procedure is done, a radiologist (doctor in x-ray department) will look at your x-ray to make sure that the end of the catheter is in proper position to give your fluids and/or medications. What should I expect in the care of my PICC? A dressing that is specially made to prevent infections will be put on. After this, the dressing will only be changed once a week unless it needs it sooner. If you go home with the catheter in, you may take a shower as long as you keep the site dry. You can do this by wearing a specially fitted PICC protector that will be provided to you before dischargefrom the hospital. The dressing at the site must be kept clean and dry. It is important that you watch for signs of infection at the site. Your healthcare provider should be notified if these occur: ??? Redness ??? Swelling ??? Pus ??? Pain at the site Other reasons to notify your healthcare provider are: ??? Catheter becomes partially or totally removed ??? Unable to infuse medication/fluid ??? Unable to draw back blood from the catheter. This may be an early sign that a clot is forming on the end of the catheter. If this occurs, a medicine called Cathflo may be used to dissolve this clot. Ask the PICC nurse or your doctor, any questions you may have so you feel secure in consenting to having a PICC line. References: Vascular Access Device Selection, Insertion, and Management, [employer] 04/15. A Review of the Efficacy, Safety, Use, and Administration of Cathflo, [employer] 2005 * Plan of Care - Bita Macedo RN - 04/27/2018 4:35 AM EDT Problem: Patient Care Overview Goal: Plan of Care Review Outcome: Ongoing (Interventions Implemented as Appropriate) 04/24/18 1944 04/26/18 2100 Coping/Psychosocial Plan Of Care Reviewed With -- patient Plan of Care Review Progress progress toward functional goals as expected -- OUTCOME EVALUATION NOTE: OUTCOME SUMMARY: Patient reports feeling good tonight. Patient up in chair watching TV all evening. Patient denied pain. Left arm with wound vac in place, minimal drainage. Left thigh donor site dressing dry and intact. Patient alert and oriented. Voiding in small amounts. Encouraged PO fluids. Patient walked with 1 assist in room. Tolerated well. Patient slept in naps. PLAN MOVING FORWARD: Monitor I & O. Assist with activity. INDIVIDUALIZED FALL PREVENTION INTERVENTIONS: Patient-specific fall risk factors per assessment: [current deficits]: History of falls, weakness Assistance [level of assistance required for transfers and ambulation]: 1 assist Supervision [direct monitoring required during toileting and ADLs]: Hands on Surveillance [continuous indirect monitoring]: Call light in reach, bed alarm, purposeful rounds Patient-specific fall prevention interventions for sensory deficits provided, if applicable: [X] Yes adjust lighting CPG GOAL OUTCOME EVALUATION: Goal: Individualization & Mutuality 04/10/18 1602 04/18/18 1322 04/26/18 1802 Mutuality/Individual Preferences What Anxieties, Fears or Concerns Do You Have About Your Health or Care? -- -- -- What Questions Do You Have About Your Health or Care? -- -- none What Information Would Help Us Give You More Personalized Care? -- -- none Individualization Patient Specific Goals Walk with PT -- -- Patient Specific Interventions -- Reorient when needed, encourage ambulations -- 04/27/18 0422 Mutuality/Individual Preferences What Anxieties, Fears or Concerns Do You Have About Your Health or Care? My hand still has some numbness. What Questions Do You Have About Your Health or Care? -- What Information Would Help Us Give You More Personalized Care? -- Individualization Patient Specific Goals -- Patient Specific Interventions -- * Plan of Care - Domi Norman RN - 04/26/2018 6:06 PM EDT Problem: Patient Care Overview Goal: Plan of Care Review 04/24/18 1944 04/26/18 0800 Coping/Psychosocial Plan Of Care Reviewed With -- patient Plan of Care Review Progress progress toward functional goals as expected -- OUTCOME EVALUATION NOTE: OUTCOME SUMMARY: Pt. had a good day. AAOx4. VSS. Afebrile. Pt denies nausea. Pain well controlled with Oxycodone andscheduled meds. Pt voiding adequate amounts. Incisions CDI. Pt. Went to the OR today for LUE. LUE is moderately swollen with wound vac in place. Pt ambulated in bathroom, tolerated well. Will continue to monitor. PLAN MOVING FORWARD: Encourage independence. Encourage ambulation. Encourage fluids/nutrition. Maintain pain control. INDIVIDUALIZED FALL PREVENTION INTERVENTIONS: Patient-specific fall risk factors per assessment: [current deficits]: IV pole, generalized weakness Assistance [level of assistance required for transfers and ambulation]: 1 assist Supervision [direct monitoring required during toileting and ADLs]: Stand by assist Surveillance [continuous indirect monitoring]: Masimo, purposeful rounding, call daniels in reach Patient-specific fall prevention interventions for sensory deficits provided, if applicable: [X] Yes, environmental modifications, lights adjusted to task, non- skid socks CPG GOAL OUTCOME EVALUATION: Goal: Individualization & Mutuality 04/26/18 1802 Mutuality/Individual Preferences What Anxieties, Fears or Concerns Do You Have About Your Health or Care? none What Questions Do You Have About Your Health or Care? none What Information Would Help Us Give You More Personalized Care? none Goal: Fall Prevention-Safe Patient Handling 04/26/18 0800 04/26/18 1232 04/26/18 1306 Daily Care Interventions Self-Care Promotion independence encouraged -- -- Toribio Fall Risk History of Falling 25 -- -- Secondary Diagnosis 15 -- -- Ambulatory Aids 0 -- -- Intravenous Therapy/Heparin/Saline Lock 20 -- -- Gait/Transferring 10 -- -- Mental Status 15 -- -- Score 85 -- -- OTHER Toribio Fall Risk High -- -- Activity Activity Type -- -- activity adjusted per tolerance Activity Assistance Provided assistance, 1 person -- -- Assistive Device Utilized none -- -- Restraint Interventions Safety Promotion/Fall Prevention safety round/check completed;fall prevention program maintained ---- Positioning Body Position -- supine -- Goal: Infection Control 04/26/18 0800 Safety Interventions Isolation Precautions standard precautions maintained Infection Prevention single patient room provided Coping Strategies Supportive Measures active listening utilized Goal: Discharge Needs Assessment 04/18/18 0355 Discharge Needs Assessment Concerns To Be Addressed care coordination/care conferences;cognitive/perceptual concerns;compliance issue concerns;home safety concerns Readmission Within The Last 30 Days no previous admission in last 30 days Equipment Needed After Discharge none Discharge Facility/Level Of Care Needs rehabilitation facility Current Discharge Risk dependent with mobility/activities of daily living Discharge Disposition still a patient Current Health Outpatient/Agency/Support Group Needs inpatient rehabilitation facility (specify) Anticipated Changes Related to Illness inability to work Activity/Self Care Review of Systems Equipment Currently Used at Home none Living Environment Transportation Available agency transportation Goal: Interdisciplinary Rounds/Family Conf 04/25/18 0416 Interdisciplinary Rounds/Family Conf Participants nursing;patient Problem: Seizure Disorder/Epilepsy (Adult) Goal: Signs and Symptoms of Listed Potential Problems Will be Absent, Minimized or Managed (SeizureDisorder/Epilepsy) Signs and symptoms of listed potential problems will be absent, minimized or managed by discharge/transition of care (reference Seizure Disorder/Epilepsy (Adult) CPG). 04/26/18 08 Seizure Disorder/Epilepsy Problems Assessed (Seizure Disorder/Epilepsy) all * Op Note - Hay Sparks MD - 04/26/2018 12:40 PM EDT [facility] Operative Note Patient Name: Christy Ambrose : [id number] MR#: [id number] Case Date: 04/26/2018 Surgeon: Surgeon(s) and Role: * Hay Sparks MD - Primary * Aditi Mccollum MD - Resident-Surgeon Huber Preoperative diagnosis: wound of arm Postoperative diagnosis: wound of arm Procedure(s) (LRB): SPLIT THICK SKIN GRAFT,100 SQ CM OR LESS, ARMS (WRVU 9.9) (Left) EA.ADDITIONAL 100SQ.CM STSG (WRVU 1.72) (N/A) MODIFIER WOUND VAC (N/A) Findings: good granulation tissue to left arm wound Anesthesia: General Estimated Blood Loss: * No values recorded between 04/26/2018 12:03 PM and 04/26/2018 12:25 PM * Specimens removed during surgery: None Drains: wound vac with 2 pieces of black foam. Surgical Closure: wound vac as above Disposition: awakened from anesthesia, extubated and taken to the recovery room in a stable condition, having suffered no apparent untoward event. Condition: doing well without problems (Please see the Surgical Encounter Summary for any Implant and Specimen details pertinent to this patient.) HPI/Surgical Indications: Christy Ambrose is a 57 y.o. M with a complex past medical history, including ESRD s/p renal transplant who presented in hemorrhagic shock following massive bleed from ruptured LUE AV fistula. He was taken to the OR by vascular surgery for exploration/repair and fasciotomy and was taken to the OR today for skin graft to LUE. Prior to the procedure the risks, benefits and indications were reviewed with the patient and informed consent was obtained. Specifically, we discussed the risks of bleeding, infection, damage to nearby structures, poor wound healing, need for additional procedures, and risks of anesthesia. Procedure Description: The patient was taken to the operating room and placed supine on the OR table. He was already receiving antibiotics and SCDs were applied for DVT prophylaxis. Anesthesia was induced and a timeout was held. He was prepped and draped in the usual sterile fashion. The left arm wound had good granulation tissue and measured 29 x 6.25 cm. The wound was copiously irrigated, therewas no devitalized tissue. The skin graft donor site from his left thigh was then prepared. The proposed donor site was infiltrated with 0.25% sensorcaine with epinephrine. Mineral oil was applied tothe skin and a dermatome (4in wide blade, 04/1000 thickness) was used to harvest the skin graft. The skin was then meshed in the standard fashion in a 1:1.5 ratio and applied to the wound. This was secured to the edges of the wound with running 4- 0 plain gut suture. Following this we applied adaptic, bacitracin and two pieces of black foam to the skin graft site. This was secured to the skin withskin devorah. This was connected to the wound vac machine and a good seal was noted. An Allevyn bandage was applied to the donor site. The patient was awoken and taken to PACU in stable condition. Dr. Sparks was present throughout. Infection Bundle used? N/A Aditi Mccollum MD Plastic Surgery Resident, pager [phone] Plastic surgery team pager: [phone] Attestation: Case Date: 04/26/2018 I was present and I participated during the entire procedure (does not need to include opening and closing). HAY SPARKS MD 04/27/2018 * Brief Op Note - Aditi Mccollum MD - 04/26/2018 12:36 PM EDT Brief Operative Note Patient Name: Christy Ambrose : [id number] MR#: [id number] Case Date: 04/26/2018 Surgeon: Surgeon(s) and Role: * Hay Sparks MD - Primary * Aditi Mccollum MD - Resident-Surgeon Huber Preoperative diagnosis: wound of arm Postoperative diagnosis: wound of arm Procedure(s) (LRB): SPLIT THICK SKIN GRAFT,100 SQ CM OR LESS, ARMS (WRVU 9.9) (Left) EA.ADDITIONAL 100SQ.CM STSG (WRVU 1.72) (N/A) MODIFIER WOUND VAC (N/A) Anesthesia: General Findings: well-healed left arm wound with good granulation tissue Complications: none Estimated Blood Loss: 2 cc Specimens removed during surgery: None Fluids: Intraprocedure Crystalloid Total None PRBCs: none (See Anesthesia Record/Report for Other Blood Products) Urine Output: (no urine output recorded) Drains: vac with 2 pieces of black foam Disposition: awakened from anesthesia, extubated and taken to the recovery room in a stable condition, having suffered no apparent untoward event. Condition: doing well without problems (Please see the Surgical Encounter Summary for any Implant and Specimen details pertinent to this patient.) Infection Bundle used? N/A Post-Op Plan: - Follow up appointments: - 5-7 days: remove bolster. Then dressing - every other day adaptic and gauze - 2 weeks: remove donor site dressing, may wash over all areas. Then dressing - Skin graft: Aquaphor or Adaptic and cover until healed. Donor site: Aquapohr and telfa until healed. - when no longer using dressings, apply lotion with aloe twice daily. - 3-6 month: f/u with attending - No shower until 2 weeks post-op. * Plan of Care - Meghan Sands RN - 04/25/2018 2:38 PM EDT Problem: Patient Care Overview Goal: Plan of Care Review Outcome: Ongoing (Interventions Implemented as Appropriate) 04/24/18 1944 04/25/18 0800 Coping/Psychosocial Plan Of Care Reviewed With -- patient Plan of Care Review Progress progress toward functional goals as expected -- OUTCOME EVALUATION NOTE: OUTCOME SUMMARY: Christy tolerated another bedside vac change well, pre-medicated with oxy. Walked today, ate well, pleasant conversations, continues to be disoriented to situation at times, and impulsive. Otherwise resting comfortably, will continue to monitor. PLAN MOVING FORWARD: NPO at 0000 for skin graft procedure tomorrow. * Plan of Care - Naz Coombs RN - 04/25/2018 4:24 AM EDT Problem: Skin Integrity Impairment, Risk/Actual (Adult) Goal: Identify Related Risk Factors and Signs and Symptoms Related risk factors and signs and symptoms are identified upon initiation of Human Response Clinical Practice Guideline (CPG) Outcome: Ongoing (Interventions Implemented as Appropriate) 04/18/18 0355 Skin Integrity Impairment, Risk/Actual Skin Integrity Impairment, Risk/Actual: Related Risk Factors cognitive impairment;edema;surgery/procedure;traumatic injury Signs and Symptoms (Skin Integrity Impairment) edema;inflammation OUTCOME EVALUATION NOTE: OUTCOME SUMMARY: Christy had a restful night. A&O, somewhat disoriented, afebrile. Pleasant and conversant. SBP in 160s. Given PRN hydralazine x 2 to good effect. MD aware. Labetalol held d/t HR under 70. Bedtime metoprolol held d/t HR under 55. Pt ambulated to the bathroom one assist a few times to urinate. Adequate UOP. Wound vac intact at -125, no output. Will continue to monitor. PLAN MOVING FORWARD: Watch BP and treat per orders. Monitor I&O, fall risk. To OR on 06/26 for skin graft to left forearm. INDIVIDUALIZED FALL PREVENTION INTERVENTIONS: Patient-specific fall risk factors per assessment: [current deficits]: TBI, impulsive, forgets he has lines. Assistance [level of assistance required for transfers and ambulation]: One assist with IV pole Supervision [direct monitoring required during toileting and ADLs]: Arms reach Surveillance [continuous indirect monitoring]: Masimo, rounding, bed and chair alarms, call light in reach Patient-specific fall prevention interventions for sensory deficits provided, if applicable: [X] Yes CPG GOAL OUTCOME EVALUATION: Goal: Skin Integrity/Wound Healing Patient will demonstrate the desired outcomes by discharge/transition of care. Outcome: Ongoing (Interventions Implemented as Appropriate) 04/25/18 0416 Skin Integrity Impairment, Risk/Actual (Adult) Skin Integrity/Wound Healing making progress toward outcome Problem: Patient Care Overview Goal: Plan of Care Review Outcome: Ongoing (Interventions Implemented as Appropriate) 04/24/18 1944 04/24/181999 Coping/Psychosocial Plan Of Care Reviewed With -- patient Plan of Care Review Progress progress toward functional goals as expected -- Goal: Individualization & Mutuality Outcome: Ongoing (Interventions Implemented as Appropriate) 04/08/18 1936 04/10/18 1602 04/18/18 1322 Mutuality/Individual Preferences What Anxieties, Fears or Concerns Do You Have About Your Health or Care? -- -- -- What Questions Do You Have About Your Health or Care? JUAN PABLO -- -- What Information Would Help Us Give You More Personalized Care? JUAN PABLO -- -- Individualization Patient Specific Goals -- Walk with PT -- Patient Specific Interventions -- -- Reorient when needed, encourage ambulations 04/19/18 8407 Mutuality/Individual Preferences What Anxieties, Fears or Concerns Do You Have About Your Health or Care? I am having surgery in themorning. What Questions Do You Have About Your Health or Care? -- What Information Would Help Us Give You More Personalized Care? -- Individualization Patient Specific Goals -- Patient Specific Interventions -- Goal: Fall Prevention-Safe Patient Handling Outcome: Ongoing (Interventions Implemented as Appropriate) 04/23/18210204/24/18199904/24/182028 Daily Care Interventions Self-Care Promotion independence encouraged;BADL personal objects within reach;BADL personal routines maintained -- -- Toribio Fall Risk History of Falling -- -- 25 Secondary Diagnosis -- -- 15 Ambulatory Aids -- -- 0 Intravenous Therapy/Heparin/Saline Lock -- -- 20 Gait/Transferring -- -- 10 Mental Status -- -- 15 Score -- -- 85 OTHER Toribio Fall Risk -- -- High Activity Activity Type -- ambulated to bathroom -- Activity Assistance Provided -- assistance, 1 person -- Assistive Device Utilized -- none -- Restraint Interventions Safety Promotion/Fall Prevention -- -- activity supervised;fall prevention program maintained;muscle strengthening facilitated;nonskid shoes/slippers when out of bed;safety round/check completed Positioning Body Position -- -- up in chair Goal: Infection Control Outcome: Ongoing (Interventions Implemented as Appropriate) 04/24/18199904/24/182028 Safety Interventions Isolation Precautions -- standard precautions maintained Infection Prevention -- environmental surveillance performed;personal protective equipment utilized;rest/sleep promoted;single patient room provided Coping Strategies Supportive Measures active listening utilized;self-care encouraged;verbalization of feelings encouraged -- Goal: Discharge Needs Assessment Outcome: Ongoing (Interventions Implemented as Appropriate) 04/18/18 0355 Discharge Needs Assessment Concerns To Be Addressed care coordination/care conferences;cognitive/perceptual concerns;compliance issue concerns;home safety concerns Readmission Within The Last 30 Days no previous admission in last 30 days Equipment Needed After Discharge none Discharge Facility/Level Of Care Needs rehabilitation facility Current Discharge Risk dependent with mobility/activities of daily living Discharge Disposition still a patient Current Health Outpatient/Agency/Support Group Needs inpatient rehabilitation facility (specify) Anticipated Changes Related to Illness inability to work Activity/Self Care Review of Systems Equipment Currently Used at Home none Living Environment Transportation Available agency transportation Goal: Interdisciplinary Rounds/Family Conf Outcome: Ongoing (Interventions Implemented as Appropriate) 04/25/18 0416 Interdisciplinary Rounds/Family Conf Participants nursing;patient Problem: Seizure Disorder/Epilepsy (Adult) Goal: Signs and Symptoms of Listed Potential Problems Will be Absent, Minimized or Managed (SeizureDisorder/Epilepsy) Signs and symptoms of listed potential problems will be absent, minimized or managed by discharge/transition of care (reference Seizure Disorder/Epilepsy (Adult) CPG). Outcome: Ongoing (Interventions Implemented as Appropriate) 04/25/18 0416 Seizure Disorder/Epilepsy Problems Assessed (Seizure Disorder/Epilepsy) all Problems Present (Seizure Disorder/Epilepsy) none * Plan of Care - Natalia Nagel RN - 04/24/2018 7:49 PM EDT Problem: Patient Care Overview Goal: Plan of Care Review 04/24/18 1944 Coping/Psychosocial Plan Of Care Reviewed With patient;mother Plan of Care Review Progress progress toward functional goals as expected Natalia Nagel RN LR 1liter bolus today, pulses mid 50s to 60s bps Bps started high 169/101 md aware, then 130s to 150s/80s to 90s. Vac at 125 mmhg to l arm wound, no issues. On chair and bed alarms still slightly impulsive and forgetful. * Plan of Care - Crystal Chatman RN - 04/24/2018 5:10 AM EDT Problem: Patient Care Overview Goal: Plan of Care Review 04/22/18 1412 04/23/18 2103 Coping/Psychosocial Plan Of Care Reviewed With -- patient Plan of Care Review Progress improving -- OUTCOME EVALUATION NOTE: OUTCOME SUMMARY: Christy had good night, pt able to sleep in between care. Denies any pain, but grimaces when moving LUE - numbness persists in extremity. All pulses palpable. SBP continues to be in 150's. Wound vac maintaining suction, cannister changed with serosang output. Dressing reinforced with tegaderm. UOP adequate, passing flatus, no BM. Denies SOB/CP/nausea, will continue to monitor. PLAN MOVING FORWARD: Encourage ambulation/repositioning, monitor pain, OR Wednesday INDIVIDUALIZED FALL PREVENTION INTERVENTIONS: Patient-specific fall risk factors per assessment: [current deficits]: IV sites, impulsiveness, past TBI, wound vac Assistance [level of assistance required for transfers and ambulation]: SBA Supervision [direct monitoring required during toileting and ADLs]: Eyes on, arms reach Surveillance [continuous indirect monitoring]: Frequent rounding, call daniels within reach Patient-specific fall prevention interventions for sensory deficits provided, if applicable: [X] N/A CPG GOAL OUTCOME EVALUATION: * Plan of Care - Crystal Chatman RN - 04/23/2018 2:51 AM EDT Problem: Patient Care Overview Goal: Plan of Care Review Outcome: Ongoing (Interventions Implemented as Appropriate) 04/22/18 1412 04/22/18 1945 Coping/Psychosocial Plan Of Care Reviewed With -- patient Plan of Care Review Progress improving -- OUTCOME EVALUATION NOTE: OUTCOME SUMMARY: Christy had a good night, able to sleep in between care. Tolerating pain with scheduled meds. SBP's sustaining in 150's. LUE C/D/I, wound vac maintained suction, all pulses palpable. Neuro checks benign. C/o numbness in LUE, and occasional numbness in feet which pt reports is baseline prior to hospitalization. UOP adequate, passing flatus, no BM overnight. Denies SOB/CP/nausea, will continue to monitor. PLAN MOVING FORWARD: Encourage ambulation/repositioning, monitor pain, neuro checks INDIVIDUALIZED FALL PREVENTION INTERVENTIONS: Patient-specific fall risk factors per assessment: [current deficits]: IV sites, wound vac, forgetful, PRN narcotics Assistance [level of assistance required for transfers and ambulation]: SBA Supervision [direct monitoring required during toileting and ADLs]: Eyes on, arms reach Surveillance [continuous indirect monitoring]: Frequent rounding, call daniels within reach Patient-specific fall prevention interventions for sensory deficits provided, if applicable: [X] N/A CPG GOAL OUTCOME EVALUATION: * Consult Note - Hay Sparks MD - 04/22/2018 5:13 PM EDT PLASTIC SURGERY HAND CONSULT NOTE Referring: No primary care provider on file. CC: Hand Injury HPI: Christy Ambrose is a 57 y.o. old male With history of renal transplant who intially presented with massive bleeding from ruptured LUE mycotic AVF aneurysm. He was taken to the OR with Vascular surgery for exploration, repair of AVF with patch angioplasty and L forearm and hand fasciotomies. Plastic surgery is consulted for management of the fasciotomy wounds. Drs Bridger and Ebenezer assisted inthe initial OR case. The patient has undergone wound vac changes to the wound and the wound is currently clean and granulating well. Hand Dominance: R DM: no Smoker: no PMH: Past Medical History: Diagnosis Date ??? BP (high blood pressure) ??? DVT (deep venous thrombosis) ??? Gout ??? Hypertension ??? Kidney problem ??? Pneumonia ??? TBI (traumatic brain injury) 1980 Patient Active Problem List Diagnosis Code ??? Epilepsy G40.909 ??? End stage renal disease N18.6 ??? Gout M10.9 ??? Hypertension I10 ??? Left leg DVT I82.402 ??? Kidney replaced by transplant Z94.0 ??? IgA nephropathy N02.8 ??? BCC (basal cell carcinoma of skin) C44.91 ??? Acne rosacea L71.9 ??? Nevus D22.9 ??? Rosacea L71.9 ??? Anticoagulated on Coumadin [...] ml/min N18.4 ??? 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 alf current use of immunosuppressive drug Z79.899 ??? H/O kidney transplant Z94.0 ??? TRISTIAN (acute kidney injury) N17.9 ??? Weight loss R63.4 ??? Gastrointestinal hemorrhage K92.2 ??? Bradycardia R00.1 ??? Left renal mass N28.89 ??? Renal mass N28.89 ??? 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 Hemorrhagic shock R57.8 PSH: Past Surgical History: Procedure Laterality Date ??? CREATED BY INTERFACE Entered not Verified Procedure Date: 09/19/2010 ??? KIDNEY TRANSPLANT KIDNEY TRANSPLANT / RECIPIENT/LT Procedure Date: 11/26/2002 ? ? PRO DEBRIDEMENT SUBCUTANEOUS TISSUE 20 SQCM/< Left 02/20/2016 DEBRIDEMENT SKIN AND SUBCU, HEAD/NECK performed by Miguel Angel Moreno MD at [facility] OR ??? PRO DECOMPRESS FOREARM, BRACH ART EXPLOR Left 04/06/2018 FASCIOTOMY, FOREARM, WITH BRACHIAL ARTERY EXPLORATION (WRVU 8.41) performed by Lida Peter MDat [facility] OR ??? PRO DIRECT REPAIR RUPTURED ANEURYSM, AXILLO-BRACHIAL ARM INCIS Left 04/06/2018 @REPAIR, RUPTURED AXILLARY OR BRACHIAL ARTERY ANEURYSM BY ARM INCISION (WRVU *) performed by Lida Peter MD at [facility] OR ??? PRO EXC PAROTD, TOTAL, UNILAT RAD NECK Left 02/05/2016 @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, TOTAL, WITH UNILATERAL RADICAL NECK DISSECTION performed by Miguel Angel Moreno MD at [facility] OR ??? PRO EXC SKIN MALIG 3.1-4CM FACE, FACIAL Left 02/05/2016 EXC MALIGNANT LESION, 3.1 TO 4.0CM, FACE performed by Miguel Angel Moreno MD at [facility] OR ? ? PRO EXC SKIN MALIG >4CM TRUNK, ARM, LEG 04/19/2012 EXC MALIGNANT LESION, MICHAEL > 4.0CM, TRUNK performed by SABRINA MEDRANO at [facility] OR ??? PRO LAP, RADICAL NEPHRECTOMY Left 05/31/2017 @LAPAROSCOPY, RADICAL NEPHRECTOMY (WRVU 25.06) performed by Jax Mills MD at [facility] [facility] OR ??? PRO LIGATN ANGIOACCESS AV FISTULA Left 04/19/2018 LIGATION OR BANDING OF HEMODIALYSIS FISTULA OR GRAFT UPPER EXTREMITY (WRVU 6.25) performed by Odalis Elias MD at [facility] MAIN OR ??? PRO NEGATIVE PRESSURE WOUND THERAPY, LESS THAN OR EQUAL TO 50 SQCM Left 04/19/2018 DRESSING CHANGE (VAC ASSISTED) UP TO 50SQ.CM (WRVU 0.55) performed by Odalis Elias [facility] MAIN OR ??? PRO REBL VES GRAFT, UP EXTREM Left 04/06/2018 REPAIR BLOOD VESSEL WITH GRAFT OTHER THAN VEIN, UPPER EXTREMITY (WRVU 15.83) performed by Lida Peter MD at [facility] MAIN OR ??? PRO RELIEVE PRESSURE ON NERVE(S) Left 04/06/2018 (MSURG) CARPAL TUNNEL (WRVU 4.82) performed by Hay Sparks MD at [facility] MAIN OR ??? PRO REPAIR INTERMEDIATE S/A/T/E 2.6-7.5 CM 04/19/2012 REPAIR INTERMEDIATE WOUND, (NO HANDS OR FEET) 2.6 TO 7.5CM, UPPER EXTREMITY performed by SABRINA MEDRANO at [facility] MAIN OR ? ? PRO REPAIR INTERMEDIATE S/A/T/E > 30.0 CM Left 04/14/2018 REPAIR INTERMEDIATE WOUND, (NO HANDS OR FEET) >30.0CM, UPPER EXTREMITY (WRVU 5) performed by Yimi Easton MD at [facility] MAIN OR ??? PRO REVISE MEDIAN N/CARPAL TUNNEL SURG Left 04/06/2018 MEDIAN NERVE DECOMPRESSION (CARPAL TUNNEL RELEASE) (WRVU 4.97) performed by Lida Peter MD [facility] MAIN OR ? ? PRO SPLIT GRFT, HEAD, FAC, HAND, FEET <100SQCM N/A 02/20/2016 SPLIT THICKNESS SKIN SPLIT GRAFT,100SQ CM OR LESS, NECK performed by Miguel Angel Moreno MD at [facility] MAIN OR ??? PRO UPPER GI ENDOSCOPY, BIOPSY N/A 05/13/2017 EGD WITH BIOPSY (WRVU 2.49) performed by Aditya Barrera MD at [facility] ENDOSCOPY ??? PRO VASCULAR SURGERY PROCEDURE UNLIST Left 11/20/2015 LIGATION\REPAIR AV FISTULA performed by Camilo Ireland MD at [facility] MAIN OR ??? PRO VASCULAR SURGERY PROCEDURE UNLIST Left 11/20/2015 EXCISION VEIN FROM HAND performed by Camilo Ireland MD at [facility] MAIN OR ??? US RENAL TRANSPLANT BIOPSY 12/31/2010 MEDS: No current facility-administered medications on file prior to encounter. Current Outpatient Prescriptions on File Prior to Encounter Medication Sig Dispense Refill ??? tacrolimus (PROGRAF) 1 mg Capsule Take 1 capsule twice daily. Kidney transplant 11/26/2002. ICD code Z94.0 60 capsule 5 ??? allopurinol (ZYLOPRIM) 100 mg Tablet Take 1 and 1/2 tablet daily. 45 tablet 11 ??? hydrALAZINE (APRESOLINE) 50 mg Tablet Take 1 tablet by mouth 2 times daily. 180 tablet 3 ??? metoprolol tartrate (LOPRESSOR) 50 mg Tablet Take half a pill 3 times a day (Patient taking differently: 50 mg 3 times daily.) 180 tablet 11 ??? levETIRAcetam (KEPPRA) 500 mg Tablet Take 1 pill in a.m. and half a pill in p.m. 45 tablet 11 ??? pantoprazole (PROTONIX) 20 mg Tablet, Delayed Release (E.C.) Take 1 tablet by mouth 2 times daily. 180 tablet 3 ??? sodium bicarbonate 650 mg Tablet Take 1 tablet by mouth 3 times daily. 270 tablet 3 ??? losartan (COZAAR) 25 mg Tablet Take 1 tablet by mouth every morning. 90 tablet 3 ??? acetaminophen (TYLENOL) 500 mg Tablet Take 2 tablets by mouth every 6 hours as needed for Pain.Do not exceed 4000 mg per 24 hours. ??? warfarin (COUMADIN) 5 mg Tablet Take 1 tablet (5 mg) by mouth daily. PLEASE RESTART THIS MEDICINE ON 06/07. GO FOR INR ON 06/08. FOLLOW UP WITH DR GARCIA'S OFFICE. ??? dilTIAZem (CARTIA XT) 120 mg Capsule, Sust. Release 24 hr Take 1 capsule by mouth daily. 90 capsule 3 ??? mycophenolate (CELLCEPT) 250 mg Capsule Take 1 capsule by mouth 2 times daily. Kidney Transplant Z94.0. Transplant Date; 11-26-02 180 capsule 11 ??? multivitamin Capsule Take 1 capsule by mouth daily. ??? levothyroxine (SYNTHROID) 88 mcg tablet Take 88 mcg by mouth daily. ??? cholecalciferol, Vitamin D3, 50,000 unit Capsule Take 1 capsule by mouth once a week. 12 capsule 3 ??? docusate sodium (COLACE) 100 mg Capsule Take 1 capsule by mouth 2 times daily as needed for Constipation. ALL: Allergies Allergen Reactions ??? Benazepril Hcl ??? Codeine Other (See Comments) Patient does not know reaction ??? Hydrochlorothiazide ??? Pollen Extracts Sneezing/runny nose FH: Non-contributory SH: Social History Social History ??? Marital status: Single Spouse name: N/A ??? Number of children: N/A ??? 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 Smoking status: Former Smoker Packs/day: 0.25 Years: 1.50 Types: Cigarettes Quit date: 12/03/2000 ??? Smokeless tobacco: Former User Quit date: 04/14/2001 ??? Alcohol use No ??? Drug use: No Comment: havent in years/1995 ??? Sexual activity: Not on file Comment: Deferred Other Topics Concern ??? Not on file Social History Narrative ROS: As per HPI EXAMINATION: Temp: [36.6 ??C (97.9 ??F)-37.1 ??C (98.8 ??F)] Resp: [16-18] BP: (148-201)/(92-107) NAD Non-labored Reg rate No CCE, moves all 4 extremities AO Left Upper Extremity: Inspection/Soft Tissue: + for volar curvilinear fasciotomy wound extending from wrist to AC. Granulating well with healthy beefy red granulation tissue along full base of wound. Max width measures 6 cm. L wrist incision approximated with prolenes. Palpation: No pain along fingers/palm/wrist Vascular: Palpable radial pulse, good cap refill Sensation: Median/Radial/Ulnar nerves intact Motor: Radial (EPL)/Median (APB)/Ulnar(DI)/AIN (OK sign)/PIN (Thumbs up) intact ROM: Normal ROM DIP/PIP/MCP, no scissoring, normal cascade; reduced flexion and extension at wrist LABS: Recent Results (from the past 24 hour(s)) Basic Metabolic Panel (non-fasting) Result Value Ref Range Glucose Lvl 100 65 - 199 mg/dL BUN 38 (H) 10 - 20 mg/dL Creatinine 2.30 (H) 0.80 - 1.50 mg/dL Sodium 138 135 - 145 mmol/L Potassium 5.3 (H) 3.5 - 5.0 mmol/L Chloride 106 98 - 107 mmol/L CO2 19 (L) 22 - 31 mmol/L Anion Gap 13 5 - 15 mmol/L Calcium 8.0 (L) 8.5 - 10.5 mg/dL eGFR 31 (L) >=60 mL/min/1.73 m?? eGFR 35 (L) >=60 mL/min/1.73 m?? Hemogram Result Value Ref Range WBC 5.5 4.0 - 9.5 x10(3)/mcL RBC 2.62 (L) 4.58 - 5.54 x10(6)/mcL Hemoglobin 8.0 (L) 13.7 - 16.5 gm/dL Hematocrit 24.8 (L) 40.5 - 48.5 % MCV 94.7 (H) 82.9 - 93.1 fL MCH 30.5 27.5 - 32.1 pg MCHC 32.3 32.0 - 35.7 gm/dL Platelets 289 145 - 357 x10(3)/mcL RDWSD 56.7 (H) 36.0 - 45.0 fL RDWCV 16.2 (H) 11.4 - 13.8 % MPV 8.6 7.6 - 12.9 fL nRBC % Auto 0.0 % nRBC Abs Auto 0.000 0.000 - 0.000 x10(3)/mcL Differential, Automated Result Value Ref Range Neutrophils % 67.1 % Neutr Abs (ANC) 3.67 1.70 - 6.10 x10(3)/mcL Lymphocytes % 17.3 % Lymphocytes Abs 1.0 0.9 - 3.2 x10(3)/mcL Monocytes % 10.0 % Monocyte Abs 0.6 0.3 - 0.9 x10(3)/mcL Eosinophils % 4.7 % Eosinophils Abs 0.3 0.0 - 0.4 x10(3)/mcL Basophils % 0.7 % Basophils Abs 0.0 0.0 - 0.1 x10(3)/mcL Immature Gran % 0.20 % Veronika Gran Abs 0.01 0.00 - 0.04 x10(3)/mcL ASSESSMENT: Christy Ambrose is a 57 y.o. 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 Wound appears ready for STSG and wound vac placement. Will schedule case for next week and update primary team with timing. Continue wound vac therapy for now The patient was discussed with attending, Dr. Sparks, who agrees with the above assessment and plan. Camilo Bauman MD Plastic Surgery Resident, PGY-8 Addendum: will schedule for OR this Wednesday as pending/add-on, please make patient NPO at [facility] on Wednesday. Attending: Plan discussed and agree as documented. Hay Sparks MD Plastic Surgery * Plan of Care - Dania Oliveira OTA - 04/22/2018 2:37 PM EDT Occupational Therapy Treatment Note Treatment Number OT: (P) 4 Pertinent History of Current Problem: (P) Christy Ambrose is a 57 y.o. 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 Precautions/Restrictions: (P) fall, weight bearing Precautions Comments: (P) LUE NWB; hx of TBI's; Wound vac Assessment: Pt seen for skilled OT interventions. Session focused on mobilization of functional household distances to increase endurance and activity tolerance during ADL tasks to promote self-care health management. Pt demonstrating increased ambulation w/ staff reporter and participating in functional ADL tasks. Pt will benefit from ongoing therapeutic interventions to achieve pt's and therapy goals. Please refer to associated flowsheet data listed below for treatment session details. Staff Recommendations: Encourage OOB activity and participation in all self care tasks Anticipated Discharge Disposition: (P) inpatient rehabilitation facility Pager: [phone] IRLANDA MUNOZ 04/22/2018 Occupational Therapy Rehabilitation Department 04/22/18 1412 Rehab Evaluation Document Type therapy note (daily note) Total Evaluation Minutes, Occupational Therapy 23 Patient Effort excellent Symptoms Noted During/After Treatment none General Information Patient Profile Review yes Patient/Family/Caregiver Comments/Observations I did the shower cap with one had General Observations of Patient arrived to find pt sitting in recliner Pertinent History of Current Problem Christy Ambrose is a 57 y.o. 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 Hearing Precautions/Limitations WFL Precautions/Restrictions fall;weight bearing Precautions Comments LUE NWB; hx of TBI's; Wound vac Limitations/Impairments safety/cognitive Treatment Number OT 4 Vital Signs O2 Device RA Cognitive Assessment Interventions Behavior/Mood Observations (Cognitive) behavior appropriate to situation;alert;cooperative Orientation Status (Cognitive) oriented x 4 Attention (Cognitive) mild impairment;distractible Follows Commands/Answers Questions (Cognitive) 100% of the time;able to follow multi-step instructions;needs increased time Personal Safety (Cognitive) decreased awareness, need for assist Pain Scale/Rating Pain Assessment Scale Numbers (Numeric Rating Pain Scale) Pain Level 0 Pain Goal 0 Transfer Assessment/Treatment [place] (Sit-Stand Transfers) supervision required [place] (Toilet Transfers) supervision required Assistive Device (Toilet Transfers) bracing Impairments (Transfers) strength decreased;balance impaired Comment (Transfers) assist for wound vac during toilet transfer; slightly impulsive Gait Assessment/Treatment [place] (Gait) supervision required Distance in Feet (Gait) 25 Impairments (Gait) balance impaired Comment (Gait) recliner <> bathroom ; witnessed pt ambulating unit w/ staff reporter ~300 Bathing Assessment/Training Comment (Bathing) pt had just completed bathing task prior to this writers arrival; pt reported assisting w/ shower cap and bathing ; Lower Body Dressing Assessment/Training Position (LB Dressing) sitting [place] Level (LB Dressing) verbal cues required;nonverbal cues required (demo/gesture);contact guard assist Impairments (LB Dressing) flexibility decreased;ROM (range of motion) decreased;coordination impaired Comment (LB Dressing) pt demonstrated abiltiy to don/doff sock using one handed technique Toileting Assessment/Training Comment (Toileting) RN reports pt is CGA for toileting hygiene Grooming Assessment/Training Comment (Grooming) pt had performed oral/hair care prior to this writers arrival Coping Observed Emotional State accepting;calm;cooperative Verbalized Emotional State acceptance Plan of Care Review Plan Of Care Reviewed With patient Progress improving Toileting Goal Toileting Goal, Date Established 04/11/18 Toileting Goal, Time to Achieve 2 wks Toileting Goal, Activity Type Patient will complete toileting tasks (hygiene, clothing management, transfers) with supervision and with AE, as needed Toileting Goal, Outcome goal partially met LB Dressing Goal LB Dressing Goal, Date Established 04/11/18 LB Dressing Goal, Time to Achieve 2 wks LB Dressing Goal, Activity Type Patient will don/doff LB clothing with supervision, seated, with AE, as needed LB Dressing Goal, Outcome goal met UB Dressing Goal UB Dressing Goal, Date Established 04/11/18 UB Dressing Goal, Time to Achieve 2 wks UB Dressing Goal, Activity Type Patient will don/doff UB clothing with supervision, seated UB Dressing Goal, Outcome goal ongoing Occupational Therapy Goal OT Goal, Date Established 04/11/18 OT Goal, Time to Achieve 2 wks OT Goal, Activity Type Patient will ambulate household distances with supervision with AD, as needed OT Goal, Additional Goal Patient will maintain precautions independently without verbal cues while participating in functional tasks OT Goal, Outcome goal partially met Clinical Impression Criteria for Skilled Therapeutic Interventions Met yes;treatment indicated Rehab Potential good, to achieve stated therapy goals Therapy Frequency 2-3 times/wk Anticipated Discharge Disposition inpatient rehabilitation facility * Plan of Care - Meghan Sands RN - 04/22/2018 12:32 PM EDT Problem: Patient Care Overview Goal: Plan of Care Review Outcome: Ongoing (Interventions Implemented as Appropriate) 04/20/18 1115 04/22/18 0730 Coping/Psychosocial Plan Of Care Reviewed With -- patient Plan of Care Review Progress progress towards functional goals is fair -- OUTCOME EVALUATION NOTE: OUTCOME SUMMARY: Christy has been up and walking, washing up with a lot of independence. Pain complaints were minimal. BP remains higher than goal but less than treatable staying in the 150's. Vac remains in place, waiting for bedside change later today with plastics. Otherwise resting comfortably, will continue to monitor. PLAN MOVING FORWARD: Monitor for pain, encourage ambulation, awaiting vac change today at bedside. * Plan of Care - Crystal Chatman RN - 04/22/2018 3:37 AM EDT Problem: Patient Care Overview Goal: Plan of Care Review Outcome: Ongoing (Interventions Implemented as Appropriate) 04/20/18 1115 04/21/18 2030 Coping/Psychosocial Plan Of Care Reviewed With -- patient Plan of Care Review Progress progress towards functional goals is fair -- OUTCOME EVALUATION NOTE: OUTCOME SUMMARY: Christy had a good night, pt able to sleep in between care. Tolerating minimal pain with scheduled meds. Q4 neuro checks benign. Wound vac maintained suction all night, LUE elevated on 3 pillows, still +2 edematous. Pulses palpable, pt c/o numbness in LUE. UOP adequate, no BM. Denies SOB/CP/nausea, will continue to monitor. ~@0300, SBP reached 201 after getting OOB, recheck 185, 1x PRN Hydralazine given to keep SBP <170 per PRN. PLAN MOVING FORWARD: Bedside wound vac dressing change, monitor pain, monitor I/O, encourage ambulation/repositioning, INDIVIDUALIZED FALL PREVENTION INTERVENTIONS: Patient-specific fall risk factors per assessment: [current deficits]: IV sites, wound vac, TBI Assistance [level of assistance required for transfers and ambulation]: SBA Supervision [direct monitoring required during toileting and ADLs]: Eyes on, arms reach Surveillance [continuous indirect monitoring]: Frequent rounding, call daniels within reach Patient-specific fall prevention interventions for sensory deficits provided, if applicable: [X] Yes CPG GOAL OUTCOME EVALUATION: * Plan of Care - Naz Robbins RN - 04/21/2018 3:01 PM EDT Problem: Skin Integrity Impairment, Risk/Actual (Adult) Goal: Identify Related Risk Factors and Signs and Symptoms Related risk factors and signs and symptoms are identified upon initiation of Human Response Clinical Practice Guideline (CPG) Outcome: Ongoing (Interventions Implemented as Appropriate) 04/18/18 0355 Skin Integrity Impairment, Risk/Actual Skin Integrity Impairment, Risk/Actual: Related Risk Factors cognitive impairment;edema;surgery/procedure;traumatic injury Signs and Symptoms (Skin Integrity Impairment) edema;inflammation Goal: Skin Integrity/Wound Healing Patient will demonstrate the desired outcomes by discharge/transition of care. Outcome: Ongoing (Interventions Implemented as Appropriate) 04/18/18 1322 Skin Integrity Impairment, Risk/Actual (Adult) Skin Integrity/Wound Healing making progress toward outcome Problem: Patient Care Overview Goal: Plan of Care Review Outcome: Ongoing (Interventions Implemented as Appropriate) 04/20/18 1115 04/21/18 1030 Coping/Psychosocial Plan Of Care Reviewed With -- patient Plan of Care Review Progress progress towards functional goals is fair -- OUTCOME EVALUATION NOTE: OUTCOME SUMMARY: Christy has had a good day. VSS. Pain managed with scheduled tylenol. Walked around unit several times- both with nursing and PT. Up in chair for the afternoon. Wound vac in place on left arm to -125. Bedside woundvac changed moved to tomorrow. Left arm has +2 edema. Pt tolerating regular diet well. BM Today. Voiding adequately in urinal. Q4 neuro checks benign. Bed/chair alarm used as patient can be forgetful to situation. Will continue to monitor and assess. PLAN MOVING FORWARD: Wound vac changes Pain management Antibiotics Ambulation INDIVIDUALIZED FALL PREVENTION INTERVENTIONS: Patient-specific fall risk factors per assessment: [current deficits]: Wound vac, generalized weakness, forgetful Assistance [level of assistance required for transfers and ambulation]: SBA Supervision [direct monitoring required during toileting and ADLs]: Eyes on Surveillance [continuous indirect monitoring]: francisco Alfaro rounding CPG GOAL OUTCOME EVALUATION: Goal: Individualization & Mutuality Outcome: Ongoing (Interventions Implemented as Appropriate) 04/08/18 1936 04/10/18 1602 04/18/18 1322 Mutuality/Individual Preferences What Anxieties, Fears or Concerns Do You Have About Your Health or Care? -- -- -- What Questions Do You Have About Your Health or Care? JUAN PABLO -- -- What Information Would Help Us Give You More Personalized Care? JUAN PABLO -- -- Individualization Patient Specific Goals -- Walk with PT -- Patient Specific Interventions -- -- Reorient when needed, encourage ambulations 04/19/18 0348 Mutuality/Individual Preferences What Anxieties, Fears or Concerns Do You Have About Your Health or Care? I am having surgery in themorning. What Questions Do You Have About Your Health or Care? -- What Information Would Help Us Give You More Personalized Care? -- Individualization Patient Specific Goals -- Patient Specific Interventions -- Goal: Fall Prevention-Safe Patient Handling Outcome: Ongoing (Interventions Implemented as Appropriate) 04/20/18 0740 04/21/18 0804/21/18 1349 Daily Care Interventions Self-Care Promotion independence encouraged -- -- Toribio Fall Risk History of Falling -- 25 -- Secondary Diagnosis -- 15 -- Ambulatory Aids -- 0 -- Intravenous Therapy/Heparin/Saline Lock -- 20 -- Gait/Transferring -- 10 -- Mental Status -- 15 -- Score -- 85 -- OTHER Toribio Fall Risk -- High -- Activity Activity Type -- -- ambulated in chung Activity Assistance Provided -- -- assistance, stand-by Assistive Device Utilized -- -- none Restraint Interventions Safety Promotion/Fall Prevention -- activity supervised;fall prevention program maintained;nonskid shoes/slippers when out of bed;safety round/check completed -- Positioning Body Position -- independent -- Goal: Infection Control Outcome: Ongoing (Interventions Implemented as Appropriate) 04/21/18 08 Safety Interventions Isolation Precautions standard precautions maintained Infection Prevention rest/sleep promoted Coping Strategies Supportive Measures active listening utilized Goal: Discharge Needs Assessment Outcome: Ongoing (Interventions Implemented as Appropriate) 04/18/18 0355 Discharge Needs Assessment Concerns To Be Addressed care coordination/care conferences;cognitive/perceptual concerns;compliance issue concerns;home safety concerns Readmission Within The Last 30 Days no previous admission in last 30 days Equipment Needed After Discharge none Discharge Facility/Level Of Care Needs rehabilitation facility Current Discharge Risk dependent with mobility/activities of daily living Discharge Disposition still a patient Current Health Outpatient/Agency/Support Group Needs inpatient rehabilitation facility (specify) Anticipated Changes Related to Illness inability to work Activity/Self Care Review of Systems Equipment Currently Used at Home none Living Environment Transportation Available agency transportation Goal: Interdisciplinary Rounds/Family Conf Outcome: Ongoing (Interventions Implemented as Appropriate) 04/18/18 0355 Interdisciplinary Rounds/Family Conf Participants patient;nursing;physician Problem: Seizure Disorder/Epilepsy (Adult) Goal: Signs and Symptoms of Listed Potential Problems Will be Absent, Minimized or Managed (SeizureDisorder/Epilepsy) Signs and symptoms of listed potential problems will be absent, minimized or managed by discharge/transition of care (reference Seizure Disorder/Epilepsy (Adult) CPG). Outcome: Ongoing (Interventions Implemented as Appropriate) 04/21/18 0800 Seizure Disorder/Epilepsy Problems Assessed (Seizure Disorder/Epilepsy) all Problems Present (Seizure Disorder/Epilepsy) none * Plan of Care - Apurva Cassidy PTA - 04/21/2018 10:30 AM EDT Physical Therapy Treatment Treatment Number PT: 3 Pertinent History of Current Problem: Christy Ambrose is a 57 y.o. 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 Precautions/Restrictions: fall, weight bearing Precautions Comments: LUE NWB; hx of TBI; wound vac Assessment: Pt seen for functional mobility, strength, endurance and pt education. Improved gait with better dynamic balance and activity tolerance. Pt requiring no device for ambulation and scored moderately well on Fong balance test, but continues to have balance deficits. Continue to encourage daily mobility to progress functional mobility, balance and activity tolerance. Please see the flow sheet below for patient details and mobility. Pt would benefit from ongoing physical therapy interventions. Staff Mobility Recommendations: Ambulate with supervision, no device Anticipated Discharge Disposition: Home with assist APURVA CASSIDY PTA Pager: [phone] Inpatient Physical Therapy Timed Up & Go (TUG) Average of two trials (seconds): 12.5 seconds Assistive device used: No Comments: Extra time required during turns to make sure pt didn't lose his balance, good gait speed, no LOB. Score correlates with being mostly independent Normal test = < 10 seconds > 13.5 seconds = fall risk Cheo Robin Isaacs B. Balance in Elderly Patients:THe Get-up and Go Test. Arch Phys MedRehabil 1986; 67:387-389. FONG Balance Test Item Description Score (0-4) 1. Sitting to standing 4/4 2. Standing unsupported 4/4 3. Sitting unsupported 10/13 4. Standing to sitting 10/13 5. Transfers 10/13 6. Standing with eyes closed 09/12 7. Standing with feet together 09/12 8. Reaching forward with outstretched arm 09/12 9. Retrieving object from floor 09/12 10. Turning to look behind 10/13 11. Turning 360 degrees 08/15 12. Placing alternate foot on stool 08/15 13. Standing with one foot in front 07/15 14. Standing on one foot 07/15 Total Score: 42/56 41-56 = low fall risk 21-40 = medium fall risk 0 -20 = high fall risk 04/21/18 1030 Rehab Evaluation Document Type therapy note (daily note) Total Evaluation Minutes, Physical Therapy 30 (TE-F x 2) Patient Effort excellent Symptoms Noted During/After Treatment none General Information Patient/Family/Caregiver Comments/Observations I think it's getting better Pertinent History of Current Problem Christy Ambrose is a 57 y.o. 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 Precautions/Restrictions fall;weight bearing Precautions Comments LUE NWB; hx of TBI; wound vac Limitations/Impairments safety/cognitive Treatment Number PT 3 Pain Scale/Rating Pain Assessment Scale Numbers (Numeric Rating Pain Scale) Pain Level 0 Bed Mobility Assessment/Treatment Assistive Device (Bed Mobility) bed rails [id number] [place] (Bed Mobility) conditional independence Comment (Bed Mobility) HOB flat, extra time required Skh-ye-Esllqk [place] (Bed Mobility) conditional independence Transfer Assessment/Treatment [place] (Sit-Stand Transfers) supervision required [place] (Stand-Sit Transfers) supervision required Ivt-Dwiil-Wgt Assistive Device (Transfers) (no device) Maintain Weight Bearing Status (Transfers) cues to maintain weight bearing status Safety Issues (Transfers) balance decreased during turns Impairments (Transfers) balance impaired;strength decreased Comment (Transfers) Initial cues to not use L UE, impulsive, pt held wound vac with R UE Gait Assessment/Treatment [place] (Gait) supervision required Assistive Device (Gait) (no device) Distance in Feet (Gait) 150 ft, 20 ft x 3 Comment (Gait) steady gait with good dez, occasionally mild LOB which pt self corrected Safety Issues (Gait) balance decreased during turns Impairments (Gait) balance impaired;strength decreased Special Tests Fong Balance Score 42 Plan of Care Review Plan Of Care Reviewed With patient Bed Mobility Goal Bed Mobility Goal, Date Established 04/11/18 Bed Mobility Goal, Time to Achieve 1 wk Bed Mobility Goal, Activity Type supine to sit/sit to supine;sidelying to sit/sit to sidelying Bed Mobility Goal, [place] Level independent Bed Mobility Goal, Outcome Achieved goal ongoing Gait Training Goal Gait Training Goal, Date Established 04/11/18 Gait Training Goal, Time to Achieve 2 wks Gait Training Goal, [place] Level independent Gait Training Goal, Assist Device other (see comments) (LRD ) Gait Training Goal, Distance to Achieve 150 ft Gait Training Goal, Outcome goal ongoing Transfer Training Goal Transfer Training Goal, Date Established 04/11/18 Transfer Training Goal, Time to Achieve 2 wks Transfer Training Goal, Activity Type all transfers Transfer Train Goal, [place] Level independent Transfer Training Goal, Assist Device (LRD) Transfer Training Goal, Outcome goal ongoing Clinical Impression Therapy Frequency 2-4 times/wk Anticipated Discharge Disposition Home with assist * Plan of Care - Loarine Crocker RN - 04/21/2018 2:48 AM EDT Problem: Skin Integrity Impairment, Risk/Actual (Adult) Goal: Identify Related Risk Factors and Signs and Symptoms Related risk factors and signs and symptoms are identified upon initiation of Human Response Clinical Practice Guideline (CPG) Outcome: Ongoing (Interventions Implemented as Appropriate) 04/18/18 0355 Skin Integrity Impairment, Risk/Actual Skin Integrity Impairment, Risk/Actual: Related Risk Factors cognitive impairment;edema;surgery/procedure;traumatic injury Signs and Symptoms (Skin Integrity Impairment) edema;inflammation Problem: Patient Care Overview Goal: Plan of Care Review Outcome: Ongoing (Interventions Implemented as Appropriate) 04/20/18 1115 04/20/18 2100 Coping/Psychosocial Plan Of Care Reviewed With -- patient Plan of Care Review Progress progress towards functional goals is fair -- OUTCOME EVALUATION NOTE: OUTCOME SUMMARY: Christy had a good night and slept with minimal interruptions. Denies pain. Ambulatory in room with sba. No gi/gu complications noted. Output is adequate. Dressing to lue wrapped several times as gianni wrap continued to unravel through the night. Wound vac to lue remains intact, continuous suction at 125mmhg. Scant drainage noted. Denies needs at this time. PLAN MOVING FORWARD: Bedside wound vac change INDIVIDUALIZED FALL PREVENTION INTERVENTIONS: Patient-specific fall risk factors per assessment: [current deficits]: Iv, wound vac, general weakness Assistance [level of assistance required for transfers and ambulation]: SBA Supervision [direct monitoring required during toileting and ADLs]: SBA Surveillance [continuous indirect monitoring]: Masimo, iv, bed/chair alarm, wound vac, frequent rounding Patient-specific fall prevention interventions for sensory deficits provided, if applicable: [X] Yes CPG GOAL OUTCOME EVALUATION: Goal: Fall Prevention-Safe Patient Handling Outcome: Ongoing (Interventions Implemented as Appropriate) 04/20/182099 Activity Activity Type ambulated to bathroom Activity Assistance Provided assistance, stand-by Restraint Interventions Safety Promotion/Fall Prevention activity supervised;nonskid shoes/slippers when out of bed;safety round/check completed Goal: Infection Control Outcome: Ongoing (Interventions Implemented as Appropriate) 04/20/182099 Safety Interventions Isolation Precautions standard precautions maintained Infection Prevention equipment surfaces disinfected;rest/sleep promoted;single patient room provided Coping Strategies Supportive Measures active listening utilized;positive reinforcement provided;self-care encouraged;verbalization of feelings encouraged * Plan of Care - Dania Oliveira OTA - 04/20/2018 3:11 PM EDT Occupational Therapy Treatment Note Treatment Number OT: (P) 3 Pertinent History of Current Problem: (P) Christy Ambrose is a 57 y.o. 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 Precautions/Restrictions: (P) fall, weight bearing Precautions Comments: (P) NWB LUE; Hx of TBI's, keep LUE elevated x 3 pillows; wound vac Assessment: Pt seen for skilled OT interventions. Session focused on mobilization of functional household distances to increase endurance and activity tolerance during ADL tasks to promote self-care health management. Pt will benefit from ongoing therapeutic interventions to achieve pt's and therapy goals. Please refer to associated flowsheet data listed below for treatment session details. Staff Recommendations: Encourage OOB activity and participation in all self care tasks Anticipated Discharge Disposition: (P) inpatient rehabilitation facility Pager: [phone] IRLANDA MUNOZ 04/20/2018 Occupational Therapy Rehabilitation Department 04/20/18 1110 Rehab Evaluation Document Type therapy note (daily note) Total Evaluation Minutes, Occupational Therapy 30 Patient Effort good Symptoms Noted During/After Treatment none General Information Patient Profile Review yes Patient/Family/Caregiver Comments/Observations I would like to put some pants on before I go. General Observations of Patient arrived to find pt sitting in recliner w/ LUE resting on pillows Pertinent History of Current Problem Christymaty Delunaon is a 57 y.o. 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 Hearing Precautions/Limitations WFL Precautions/Restrictions fall;weight bearing Precautions Comments NWB LUE; Hx of TBI's, keep LUE elevated x 3 pillows; wound vac Limitations/Impairments safety/cognitive Treatment Number OT 3 Vital Signs O2 Device RA Cognitive Assessment Interventions Behavior/Mood Observations (Cognitive) behavior appropriate to situation;alert;cooperative Orientation Status (Cognitive) oriented x 4 Attention (Cognitive) mild impairment Follows Commands/Answers Questions (Cognitive) able to follow single-step instructions;needs increased time Personal Safety (Cognitive) mild impairment;impulsive;decreased awareness, need for assist;decreased awareness, need for safety Pain Scale/Rating Pain Assessment Scale Numbers (Numeric Rating Pain Scale) Pain Level 0 Pain Goal 0 Transfer Assessment/Treatment [place] (Sit-Stand Transfers) contact guard assist [place] (Stand-Sit Transfers) contact guard assist Rpp-Iniss-Knj Assistive Device (Transfers) gait belt Safety Issues (Transfers) balance decreased during turns Impairments (Transfers) balance impaired;strength decreased Comment (Transfers) slightly impulsive at times; cues for safety awareness Gait Assessment/Treatment [place] (Gait) verbal cues required;nonverbal cues required (demo/gesture);contact guard assist Assistive Device (Gait) gait belt Distance in Feet (Gait) 300' Safety Issues (Gait) balance decreased during turns;step length decreased Impairments (Gait) balance impaired;strength decreased Comment (Gait) pt required mulit modal cues for directions; slightly impulsive; Lower Body Dressing Assessment/Training Position (LB Dressing) sitting;standing [place] Level (LB Dressing) set up required;verbal cues required;minimum assist (75% patient effort) Impairments (LB Dressing) balance impaired;flexibility decreased;coordination impaired;ROM (range of motion) decreased;strength decreased Comment (LB Dressing) pt donned pants while sitting in recliner; required assist to insert legs into pants 2' socks; required assist for tying pants 2' precautions of LUE Balance Skills Training Sitting Balance: Static good balance Sitting Balance: Dynamic fair balance Uow-kt-Dijuj Balance fair balance Standing Balance: Static fair balance Standing Balance: Dynamic fair balance Coping Observed Emotional State accepting;calm;cooperative Verbalized Emotional State acceptance Plan of Care Review Plan Of Care Reviewed With patient Progress progress towards functional goals is fair Toileting Goal Toileting Goal, Date Established 04/11/18 Toileting Goal, Time to Achieve 2 wks Toileting Goal, Activity Type Patient will complete toileting tasks (hygiene, clothing management, transfers) with supervision and with AE, as needed Toileting Goal, Outcome goal ongoing LB Dressing Goal LB Dressing Goal, Date Established 04/11/18 LB Dressing Goal, Time to Achieve 2 wks LB Dressing Goal, Activity Type Patient will don/doff LB clothing with supervision, seated, with AE, as needed LB Dressing Goal, Outcome goal ongoing UB Dressing Goal UB Dressing Goal, Date Established 04/11/18 UB Dressing Goal, Time to Achieve 2 wks UB Dressing Goal, Activity Type Patient will don/doff UB clothing with supervision, seated UB Dressing Goal, Outcome goal ongoing Occupational Therapy Goal OT Goal, Date Established 04/11/18 OT Goal, Time to Achieve 2 wks OT Goal, Activity Type Patient will ambulate household distances with supervision with AD, as needed OT Goal, Additional Goal Patient will maintain precautions independently without verbal cues while participating in functional tasks OT Goal, Outcome goal ongoing Clinical Impression Criteria for Skilled Therapeutic Interventions Met yes;treatment indicated Rehab Potential good, to achieve stated therapy goals Therapy Frequency 2-3 times/wk Anticipated Discharge Disposition inpatient rehabilitation facility * Plan of Care - Meghan Sands RN - 04/20/2018 1:03 PM EDT Problem: Patient Care Overview Goal: Plan of Care Review Outcome: Ongoing (Interventions Implemented as Appropriate) 04/18/18 1322 04/20/18 0740 Coping/Psychosocial Plan Of Care Reviewed With -- patient Plan of Care Review Progress progress toward functional goals is gradual -- OUTCOME EVALUATION NOTE: OUTCOME SUMMARY: Pt has been up to the chair, walking, and generally in good spirits, cooperative with care, minimalc/o pain. Otherwise resting comfortably, will continue to monitor. PLAN MOVING FORWARD: Bedside vac change tomorrow. * Consult Note - Danielle Peoples, - 04/20/2018 10:36 AM EDT INFECTIOUS DISEASE INITIAL CONSULT NOTE Reason for Consult: Antibiotic recommendations Consulting Service: Vascular Consulting Attending:Chase Olvera MD Admission Date:04/06/2018 History of Present Illness: 57 year-old gentleman with history of renal cell transplant on immunosuppression, with suspected DVT on coumadin who was transferred to [facility] for hemorrhagic shock with PEA arrest secondary to fistulableeding. He is a limited historian- history taken from chart- He had had some leaking from his LUEAVF site and was found by his mom in a pool of blood, pulseless. He was transfused 6 units of prbcsand transferred to [facility]. He had previous LAVF revision due to size. On 04/06 went to OR and had exploration of LUE AVF with repair of AVF, brachial artery patch angioplasty with forearm and hand fascio tomies. On 04/14 had sharp excisional debridement and partial closure of open fasciotomies and woundvac placement. On 04/19 resection of prior left snuff box radiocephalic AVF with radial artery ligation. He had tissue cultures sent from the procedure and cultures showed many neutrophils and rare gram negative rods. He was started on Piperacillin/tazobactam. Patient reports feeling well with no complaints. No fever or chills and his pain is controlled. No nausea, vomiting, diarrhea or rashes. 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 Non-smoker (quit 2000). No pets or recent travel Physical Exam: Last value Range last 24 hrs Temperature Temp: 37.1 ??C (98.8 ??F) Temp: [36.4 ??C (97.5 ??F)-37.1 ??C (98.8 ??F)] Heart Rate Heart Rate: 64 Heart Rate: [64] Blood Pressure BP: 161/88 BP: (142-161)/(74-98) Respiratory Rate Resp: 16 Resp: [16-18] SpO2 SpO2: 96 % SpO2: [95 %-97 %] General Alert, no acute distress HEENT No scleral icterus or subconjunctival hemorrhage Heart Regular rate and rhythm no murmur Lungs Clear bilaterally Abdomen Normoactive bowel sounds, soft, not tender, no hepatosplenomegaly Extremities No joint swelling, no edema. Left upper extremity AVF site with dressing and GIANNI wrap in place Skin No rash Neuro Grossly intact, moving all extremities Laboratory: Recent Labs 04/20/1848 04/19/1825 04/18/18 0526 WBC 7.3 5.5 6.4 HGB 7.8* 7.7* 8.0* HCT 23.7* 23.3* 24.6* PLATELET 302 274 305 Recent Labs 04/20/1848 04/19/18 0625 04/18/18 0526 NA 138 137 135 K 4.7 4.7 4.3 CL 104 104 104 CO2 21* 21* 20* BUN 33* 35* 36* CREATININE 2.38* 2.12* 2.30* Microbiology: Blood Cultures: Not collected Tissue culture 04/19: neutrophils, rare gram negative rods Body fluid culture 04/06 and 04/19- no growth Radiology/Studies/Procedures: 04/07: MRI Brain: Multiple areas of acute ischemia, primarily cortical, likely reflecting mild hypoxic ischemic injury. 04/12: MRA head and neck: normal TTE: Mild concentric left ventricular hypertrophy is observed. There is normal global left ventricular systolic function. Ejection fraction is estimated to be 65%. There are no left ventricular segmental wall motion abnormalities. Right ventricular chamber size, wall thickness, and systolic function are within normal limits. There is no hemodynamically significant valve disease. There is no evidence of a patent foramen ovale by either color Doppler or agitated saline injection. Assessment: Christy Ambrose is a 57 year-old gentleman with history of renal transplant in 2002 on cellcept and tacrolimus who presented with ruptured left UE AVF with compartment syndrome of left forearm s/p exploration, repair, brachial artery patch angioplasty, fasciotomies and resection of left radiocephalicAVF with radial artery ligation. His tissue culture from OR growing rare GNR and neutrophils and hehas been started on Piperacillin/tazobactam. Upon speaking with surgical team there was concern forinfection in his left UE AVF (chronic clot concern for seeding) and in his radiocephalic AVF as it grew quickly and had cellulitic changes concerning for mycotic dilation due to infection. He will require treatment for endovascular infection and will need to keep in mind he has prosthetic patch/repair in place Recommendations: -Continue Piperacillin/tazobactam 3.375 g q8 hours -Please check a set of blood cultures -Follow cultures -Further antibiotics recommendations/ duration will be based on culture results and hospital course This patient was seen and discussed with ID attending Dr. Guevara. Recommendations discussed with primary treating team. ID will follow. Please call with questions Danielle Peoples DO Infectious Disease Fellow Pager [phone] Associated attestation - Katarzyna Guevara MD - 04/20/2018 7:42 PM EDT I have seen the patient and reviewed the history and physical and I agree with the details as written by Dr Peoples. The assessment and plan were formulated in discussion with me and I agree with them as documented. 57yo man with h/o renal transplant on MMF and tacrolimus who presented in hemorrhagic shock 2/2 rupture of his LUE AV fistula. Concern was for mycotic aneurysm and he had debridement of the fistula as well as fasciotomies and removal of a more distal A-V fistula, which is now showing GNRs on gram stain. Though it is not totally clear how this episode precipitated and per report there was pre-existing dilation of the superior fistula, this clinical scenario does seem suspicious for endovascular infection at these sites. There do not seem to be other precipitating events or signs/symptoms of other sites of localizing infection that would have clearly seeded the fistulae. For now would continue current antimicrobials and we will follow up the culture data. Please obtain blood cultures as well. Katarzyna Guevara MD Infectious Disease * Plan of Care - Loraine Crocker RN - 04/20/2018 4:09 AM EDT Problem: Skin Integrity Impairment, Risk/Actual (Adult) Goal: Identify Related Risk Factors and Signs and Symptoms Related risk factors and signs and symptoms are identified upon initiation of Human Response Clinical Practice Guideline (CPG) Outcome: Ongoing (Interventions Implemented as Appropriate) 04/18/18 0355 Skin Integrity Impairment, Risk/Actual Skin Integrity Impairment, Risk/Actual: Related Risk Factors cognitive impairment;edema;surgery/procedure;traumatic injury Signs and Symptoms (Skin Integrity Impairment) edema;inflammation Goal: Skin Integrity/Wound Healing Patient will demonstrate the desired outcomes by discharge/transition of care. Outcome: Ongoing (Interventions Implemented as Appropriate) 04/18/18 1322 Skin Integrity Impairment, Risk/Actual (Adult) Skin Integrity/Wound Healing making progress toward outcome Problem: Patient Care Overview Goal: Plan of Care Review Outcome: Ongoing (Interventions Implemented as Appropriate) 04/18/18 1322 04/19/18 2137 Coping/Psychosocial Plan Of Care Reviewed With -- patient Plan of Care Review Progress progress toward functional goals is gradual -- OUTCOME EVALUATION NOTE: OUTCOME SUMMARY: Christy remained alert and oriented, and verbally responsive. Would forget to use call daniels to assist out of bed to use restroom and would get tangled up in iv, wound vac and scd lines. Pain controlled with scheduled tylenol. LUE remained elevated on pillows. Wound vac to lue set to continuous suctionat 125mmHg. Dressing remains c/d/i. No gi/gu complications. Adequate I&O's. VSS. Ambulatory in room with one assist. Denies needs at this time. PLAN MOVING FORWARD: Continue antibiotic treatments, monitor I&O's, control pain INDIVIDUALIZED FALL PREVENTION INTERVENTIONS: Patient-specific fall risk factors per assessment: [current deficits]: Wound vac, iv infusing, forgetful Assistance [level of assistance required for transfers and ambulation]: One person Supervision [direct monitoring required during toileting and ADLs]: One person Surveillance [continuous indirect monitoring]: Masimo, wound vac, iv, frequent rounding Patient-specific fall prevention interventions for sensory deficits provided, if applicable: [X] Yes CPG GOAL OUTCOME EVALUATION: Goal: Fall Prevention-Safe Patient Handling Outcome: Ongoing (Interventions Implemented as Appropriate) 04/19/182136 Activity Activity Type ambulated to bathroom Activity Assistance Provided assistance, 1 person Restraint Interventions Safety Promotion/Fall Prevention activity supervised;fall prevention program maintained;nonskid shoes/slippers when out of bed;safety round/check completed Goal: Infection Control Outcome: Ongoing (Interventions Implemented as Appropriate) 04/19/182136 Safety Interventions Isolation Precautions standard precautions maintained Infection Prevention equipment surfaces disinfected;rest/sleep promoted;single patient room provided Coping Strategies Supportive Measures active listening utilized;positive reinforcement provided;self-care encouraged;verbalization of feelings encouraged * Op Note - Bhargavi Junior MD - 04/19/2018 10:43 AM EDT [facility] Operative Note Patient Name: Christy Ambrose : [id number] MR#: [id number] Case Date: 04/19/2018 Surgeon: Surgeon(s) and Role: * Odalis Elias MD - Primary * Bhargavi Junior MD Preoperative diagnosis: left distal AVF with ?infection Postoperative diagnosis: left distal AVF with ?infection Procedure(s) (LRB): LIGATION OR BANDING OF HEMODIALYSIS FISTULA OR GRAFT UPPER EXTREMITY (WRVU 6.25) (Left) DRESSING CHANGE (VAC ASSISTED) UP TO 50SQ.CM (WRVU 0.55) (Left) Anesthesia: General Estimated Blood Loss: 40cc ?? Specimens removed during surgery: AVF, portion also sent to microbiology ?? Drains: Wound vac ?? Surgical Closure: Primary Closure - skin incision is completely closed without any wires, isa, drains or other devices ?? Disposition: awakened from anesthesia, extubated and taken to the recovery room in a stable condition, having suffered no apparent untoward event. ?? Condition: doing well without problems ?? (Please see the Surgical Encounter Summary for any Implant and Specimen details pertinent to this patient.) ?? HPI/Surgical Indications: Christy Ambrose??is a 57 y.o.??male??with PMH of HTN, TBI w/ epilepsy, s/p donor renal transplant 2002 (on tacrolimus and cellcept). Per report from family he has been suffering from LUE edema, and dilation of his AVF and on coumadin for presumed upper extremity thrombosis. On the day of admission pt was found down in his home with massive hemorrhage from his LUE AVF. Pt was taken to OR 04/07/18 with vascular emergently for LUE exploration and control of hemorrhage. He also has a left radiocephalic AVF that was found to be aneurysmal, and increased in size withconcern for infection. Thus patient taken to OR for resection. ?? Findings: Informed consent was obtained. Pt was brought back to the operating room and placed supine on the OR table. General anesthesia was induced. Additional support lines placed as needed. The left upper extremity was circumferentially prepped and draped in standard sterile fashion. Preoperative antibiotics were given. A timeout was performed. Attention was then turned to the patient's left upper extremity. A tourniquet was placed at the mid forearm, but inflation was not necessary. A curvilinear incision was made over the radiocephalic AVF and the tissues were dissected with electrocautery and sharp dissection. The aneurysm was circumferentially until the radial artery was visible proximal and distal. The artery was encircled with vessel loops. The palmar arch was dopplerable, and unchanged with temporary occlusion of the radial artery. Blunt dissection was continued aroundthe aneurysm until it was completely free. The proximal and distal radial artery was suture ligatedwith 2-0 proline. Lastly the palmar arch was still present via doppler and unchanged with suture ligation of the radial artery. The wound bed was irrigated with normal saline, and hemostasis achieved with electrocautery. Deep dermal sutures were placed with 3-0 Vicryl and the skin was approximated with 2-0 prolene. The arm was cleansed and wrist incision dressed with 4x4 and tegaderm. The forearm wound bed from prior brachiocephalic AVF was clean with healthy granulation tissue. Thewound vac was replaced with 2 pieces of black sponge, with good seal. The arm was then wrapped withgauze and GIANNI wraps to provide compression. Dr. Elias was present and scrubbed for the entire case. Infection Bundle used? Ancef 2gm ?? Attestation: Case Date: 04/19/2018 Bhargavi Junior MD 04/19/2018 Associated attestation - Odalis Elias MD - 04/19/2018 4:00 PM EDT Attestation: Case Date: 04/19/2018 I was present and scrubbed for the entire procedure. ODALIS ELIAS MD 04/19/2018 * Brief Op Note - Bhargavi Junior MD - 04/19/2018 10:25 AM EDT [facility] Operative Note Patient Name: Christy Ambrose : [id number] MR#: [id number] Case Date: 04/19/2018 Surgeon: Surgeon(s) and Role: * Odalis Elias MD - Primary * Bhargavi Junior MD Preoperative diagnosis: left distal AVF with ?infection Postoperative diagnosis: left distal AVF with ?infection Procedure(s) (LRB): LIGATION OR BANDING OF HEMODIALYSIS FISTULA OR GRAFT UPPER EXTREMITY (WRVU 6.25) (Left) DRESSING CHANGE (VAC ASSISTED) UP TO 50SQ.CM (WRVU 0.55) (Left) Anesthesia: General Estimated Blood Loss: 40cc Specimens removed during surgery: AVF, portion also sent to microbiology Drains: Wound vac Surgical Closure: Primary Closure - skin incision is completely closed without any wires, isa, drains or other devices Disposition: awakened from anesthesia, extubated and taken to the recovery room in a stable condition, having suffered no apparent untoward event. Condition: doing well without problems (Please see the Surgical Encounter Summary for any Implant and Specimen details pertinent to this patient.) HPI/Surgical Indications: left radiocephalic AVF was found to be aneurysmal, increased in size and concern for infection. Thus patient taken to OR for resection. Findings: left RC-AVF was found to be severely aneurysmal, but no signs of infection. Significant edema. The wound bed from forearm AVF ligation was clean with healthy granulation tissue. The wound vac was replaced, with good seal. Infection Bundle used? Ancef 2gm Attestation: Case Date: 04/19/2018 Bhargavi Junior MD 04/19/2018 * Plan of Care - Bita Macedo RN - 04/19/2018 3:53 AM EDT Problem: Patient Care Overview Goal: Plan of Care Review Outcome: Ongoing (Interventions Implemented as Appropriate) 04/18/18 1322 04/18/18 2100 Coping/Psychosocial Plan Of Care Reviewed With -- patient Plan of Care Review Progress progress toward functional goals is gradual -- OUTCOME EVALUATION NOTE: OUTCOME SUMMARY: Patient denies pain. Patient verbalizing that he is having surgery in morning. Left arm wound vac in place. Left wrist area swollen and red. Patient voiding well NPO since MN. Patient walks to bath room with 1 assist. PLAN MOVING FORWARD: Plan for OR in morning and checking prograf level. INDIVIDUALIZED FALL PREVENTION INTERVENTIONS: Patient-specific fall risk factors per assessment: [current deficits]: History of falls, weakness, patient forgets to call nurse at times. Assistance [level of assistance required for transfers and ambulation]: 1 assist Supervision [direct monitoring required during toileting and ADLs]: Hands on Surveillance [continuous indirect monitoring]: Call light in reach, bed alarm, purposeful rounds Patient-specific fall prevention interventions for sensory deficits provided, if applicable: [X] Yes adjust lighting CPG GOAL OUTCOME EVALUATION: * Care Management - [place] RN - 04/18/2018 2:40 PM EDT OFFICE OF CARE MANAGEMENT/[employer] Worker/PROGRESS NOTE e-DH reviewed. Report received from vascular services Patient continues to require acute inpatient care for the treatment of ::repair of AVF with patch angioplasty and forarm and hand fasciotomies Plan:Plan for bedside vac change today with wound evaluation. Suspect defect will require ongoing VAC therapy and skin grafting for closure. ?? Appreciate transplant nephrology in assistance of management of HTN and immunosuppressant regimen. Plan for tacrolimus trough tomorrow AM. ?? -Will continue with immunosuppression -prograf-1.5 mg morning and 1mg evening and Cellcept -250 BID CM plan: discharge when medically ready to a acute rehab facility. Plan: CM will continue to follow for coordination of care and to facilitate discharge planning. * Plan of Care - Crystal Yan RN - 04/18/2018 1:34 PM EDT Problem: Patient Care Overview Goal: Plan of Care Review Outcome: Ongoing (Interventions Implemented as Appropriate) 04/18/18 0804 04/18/18 1322 Coping/Psychosocial Plan Of Care Reviewed With patient -- Plan of Care Review Progress -- progress toward functional goals is gradual OUTCOME EVALUATION NOTE: OUTCOME SUMMARY: --Patient disoriented to situation. Having minor word finding difficulties but able to have logicalconversations. Pleasant affect. --Wound vac changed at bedside today. Premedicated with 20mg oxycodone, tolerated it with no issues. Dr Peter at bedside during change and concerned AVF on left wrist is growing and is now red--concerned it could be infected, recommended ligation. Patient will most likely need skin graft over wound in the future. Tissue has healthy, red granulating tissue in wound base. --Had AVF ultrasound today in [facility] lab to assess AVF --NPO at midnight for OR tomorrow PLAN MOVING FORWARD: --NPO at midnight for OR tomorrow INDIVIDUALIZED FALL PREVENTION INTERVENTIONS: Patient-specific fall risk factors per assessment: [current deficits]: Impulsive, tethering devices, opiates, pain, confused--doesn't know limitations Assistance [level of assistance required for transfers and ambulation]: 1 assist, hangs onto IV pole Supervision [direct monitoring required during toileting and ADLs]: Hands on Surveillance [continuous indirect monitoring]: Hourly rounding, call daniels within reach at all times, masimo, bed alarm/chair alarm Patient-specific fall prevention interventions for sensory deficits provided, if applicable: [X] N/A CPG GOAL OUTCOME EVALUATION: Goal: Individualization & Mutuality Outcome: Ongoing (Interventions Implemented as Appropriate) 04/18/18 1322 Individualization Patient Specific Interventions Reorient when needed, encourage ambulations Goal: Fall Prevention-Safe Patient Handling Outcome: Ongoing (Interventions Implemented as Appropriate) 04/18/18 08 Daily Care Interventions Self-Care Promotion independence encouraged Toribio Fall Risk History of Falling 25 Secondary Diagnosis 15 Ambulatory Aids 0 Intravenous Therapy/Heparin/Saline Lock 20 Gait/Transferring 10 Mental Status 15 Score 85 OTHER Toribio Fall Risk High Activity Activity Type activity adjusted per tolerance Activity Assistance Provided assistance, stand-by Assistive Device Utilized none Restraint Interventions Safety Promotion/Fall Prevention activity supervised;fall prevention program maintained;nonskid shoes/slippers when out of bed;safety round/check completed Positioning Body Position independent Goal: Infection Control Outcome: Ongoing (Interventions Implemented as Appropriate) 04/18/18803 Safety Interventions Isolation Precautions standard precautions maintained Infection Prevention barrier precautions utilized;environmental surveillance performed;rest/sleep promoted;single patient room provided Coping Strategies Supportive Measures active listening utilized;self-care encouraged Goal: Discharge Needs Assessment Outcome: Ongoing (Interventions Implemented as Appropriate) 04/18/18 035 Discharge Needs Assessment Concerns To Be Addressed care coordination/care conferences;cognitive/perceptual concerns;compliance issue concerns;home safety concerns Readmission Within The Last 30 Days no previous admission in last 30 days Equipment Needed After Discharge none Discharge Facility/Level Of Care Needs rehabilitation facility Current Discharge Risk dependent with mobility/activities of daily living Discharge Disposition still a patient Current Health Outpatient/Agency/Support Group Needs inpatient rehabilitation facility (specify) Anticipated Changes Related to Illness inability to work Activity/Self Care Review of Systems Equipment Currently Used at Home none Living Environment Transportation Available agency transportation Goal: Interdisciplinary Rounds/Family Conf Outcome: Ongoing (Interventions Implemented as Appropriate) 04/18/18 0355 Interdisciplinary Rounds/Family Conf Participants patient;nursing;physician * Plan of Care - Karine Carroll RN - 04/18/2018 4:33 AM EDT Problem: Skin Integrity Impairment, Risk/Actual (Adult) Goal: Identify Related Risk Factors and Signs and Symptoms Related risk factors and signs and symptoms are identified upon initiation of Human Response Clinical Practice Guideline (CPG) Outcome: Ongoing (Interventions Implemented as Appropriate) 04/18/18354 Skin Integrity Impairment, Risk/Actual Skin Integrity Impairment, Risk/Actual: Related Risk Factors cognitive impairment;edema;surgery/procedure;traumatic injury Signs and Symptoms (Skin Integrity Impairment) edema;inflammation Goal: Skin Integrity/Wound Healing Patient will demonstrate the desired outcomes by discharge/transition of care. Outcome: Ongoing (Interventions Implemented as Appropriate) 04/18/18354 Skin Integrity Impairment, Risk/Actual (Adult) Skin Integrity/Wound Healing making progress toward outcome Problem: Patient Care Overview Goal: Plan of Care Review Outcome: Ongoing (Interventions Implemented as Appropriate) 04/18/18354 Coping/Psychosocial Plan Of Care Reviewed With patient Plan of Care Review Progress progress toward functional goals as expected OUTCOME EVALUATION NOTE: OUTCOME SUMMARY: Christy Ambrose had a restful night, seemed to get ample rest and sleep throughout the evening. Remains NPO from midnight on. Alert occasionally disoriented to time and place. Impulsive, Call daniels in reach, occasionally used appropriately. Pain managed adequately with scheduled APAP, PT denies pain., BP's running high, PRN BP meds. given 1x overnight bringing BP below PRN parameters. All Pulses palpable. Telemetry YES, with no events overnight. Patient occasionally unsustained HR below 50. Voiding adequate amounts, spontaneously, up to toilet and urinal at bedside. Wound vac to 125 mmHg continuous setting, reinforced multiple times over shift PLAN MOVING FORWARD: Christy going to OR today for wound vac change or wound closure. Continue to monitor, Promote IS use, Assist with ambulation, encourage self care INDIVIDUALIZED FALL PREVENTION INTERVENTIONS: Patient-specific fall risk factors per assessment: [current deficits]: History of falls Assistance [level of assistance required for transfers and ambulation]: IV pole non-skid socks one person assist Supervision [direct monitoring required during toileting and ADLs]: Arms reach Surveillance [continuous indirect monitoring]: Bed and chair alarm, call daniels in reach, purposeful rounding Patient-specific fall prevention interventions for sensory deficits provided, if applicable: Yes, lighting adjusted for tasks and safety, bed and chair alarm CPG GOAL OUTCOME EVALUATION: Goal: Fall Prevention-Safe Patient Handling Outcome: Ongoing (Interventions Implemented as Appropriate) 04/18/18354 Daily Care Interventions Self-Care Promotion independence encouraged Toribio Fall Risk History of Falling 25 Secondary Diagnosis 15 Ambulatory Aids 0 Intravenous Therapy/Heparin/Saline Lock 20 Gait/Transferring 10 Mental Status 15 Score 85 OTHER Toribio Fall Risk High Activity Activity Type activity adjusted per tolerance Activity Assistance Provided assistance, 1 person Assistive Device Utilized none Restraint Interventions Safety Promotion/Fall Prevention activity supervised;fall prevention program maintained;safety round/check completed;toileting scheduled;nonskid shoes/slippers when out of bed Positioning Body Position supine;supine, head elevated Goal: Infection Control Outcome: Ongoing (Interventions Implemented as Appropriate) 04/18/18354 Safety Interventions Isolation Precautions standard precautions maintained Infection Prevention single patient room provided;rest/sleep promoted Coping Strategies Supportive Measures active listening utilized;self-care encouraged Goal: Discharge Needs Assessment 04/18/18354 Discharge Needs Assessment Concerns To Be Addressed care coordination/care conferences;cognitive/perceptual concerns;compliance issue concerns;home safety concerns Readmission Within The Last 30 Days no previous admission in last 30 days Equipment Needed After Discharge none Discharge Facility/Level Of Care Needs rehabilitation facility Current Discharge Risk dependent with mobility/activities of daily living Discharge Disposition still a patient Current Health Outpatient/Agency/Support Group Needs inpatient rehabilitation facility (specify) Anticipated Changes Related to Illness inability to work Activity/Self Care Review of Systems Equipment Currently Used at Home none Living Environment Transportation Available agency transportation Goal: Interdisciplinary Rounds/Family Conf Outcome: Ongoing (Interventions Implemented as Appropriate) 04/18/18354 Interdisciplinary Rounds/Family Conf Participants patient;nursing;physician Problem: Seizure Disorder/Epilepsy (Adult) Goal: Signs and Symptoms of Listed Potential Problems Will be Absent, Minimized or Managed (SeizureDisorder/Epilepsy) Signs and symptoms of listed potential problems will be absent, minimized or managed by discharge/transition of care (reference Seizure Disorder/Epilepsy (Adult) CPG). Outcome: Ongoing (Interventions Implemented as Appropriate) 04/18/18354 Seizure Disorder/Epilepsy Problems Assessed (Seizure Disorder/Epilepsy) all Problems Present (Seizure Disorder/Epilepsy) none * Plan of Care - Negrita French RN - 04/17/2018 6:59 PM EDT Problem: Skin Integrity Impairment, Risk/Actual (Adult) Goal: Identify Related Risk Factors and Signs and Symptoms Related risk factors and signs and symptoms are identified upon initiation of Human Response Clinical Practice Guideline (CPG) Outcome: Ongoing (Interventions Implemented as Appropriate) 04/10/18 1601 Skin Integrity Impairment, Risk/Actual Skin Integrity Impairment, Risk/Actual: Related Risk Factors cognitive impairment;edema;surgery/procedure Signs and Symptoms (Skin Integrity Impairment) bulla/blister/vesicle;edema OUTCOME EVALUATION NOTE: OUTCOME SUMMARY: Pt had an okay day, VSS, AOx2 disoriented to situation and place. Becoming more impulsive this evening, bed alarm, chair alarm and [address] Wound vac has new air leak this evening and has alarm sounding. Pt tolerating regular diet and PO fluids. OOB to bathroom and utilizing the urinal. BP has been elevated but no PRN medications have been needed. Denies CP, SOB, or pain at this time. Will continue to monitor. PLAN MOVING FORWARD: Monitor for signs and symptoms of infection, bleeding and pain. Encourage IS and ambulation. OR tomorrow, NPO at 0000 INDIVIDUALIZED FALL PREVENTION INTERVENTIONS: Patient-specific fall risk factors per assessment: [current deficits]: IV tubing, recent surgery, generalized weakness, narcotic use, chronic condition. Assistance [level of assistance required for transfers and ambulation]: 1 assist SBA / hands on Supervision [direct monitoring required during toileting and ADLs]: Eyes on, hands on, bed and chair alarm set. Surveillance [continuous indirect monitoring]: Call daniels in reach, purposeful rounding, masimo Patient-specific fall prevention interventions for sensory deficits provided, if applicable: [X] Yes Lighting adjusted for tasks, non-skid socks when out of bed CPG GOAL OUTCOME EVALUATION: Ongoing Goal: Skin Integrity/Wound Healing Patient will demonstrate the desired outcomes by discharge/transition of care. Outcome: Ongoing (Interventions Implemented as Appropriate) 04/16/18 0329 Skin Integrity Impairment, Risk/Actual (Adult) Skin Integrity/Wound Healing making progress toward outcome Problem: Patient Care Overview Goal: Plan of Care Review Outcome: Ongoing (Interventions Implemented as Appropriate) 04/17/18 0548 04/17/18 0815 Coping/Psychosocial Plan Of Care Reviewed With -- patient Plan of Care Review Progress improving -- Goal: Individualization & Mutuality Outcome: Ongoing (Interventions Implemented as Appropriate) 04/08/18193504/10/18 1602 04/17/18 0547 Mutuality/Individual Preferences What Anxieties, Fears or Concerns Do You Have About Your Health or Care? -- -- My arm has a little numbness. What Questions Do You Have About Your Health or Care? JUAN PABLO -- -- What Information Would Help Us Give You More Personalized Care? JUAN PABLO -- -- Individualization Patient Specific Goals -- Walk with PT -- Patient Specific Interventions -- Reorient -- Goal: Fall Prevention-Safe Patient Handling Outcome: Ongoing (Interventions Implemented as Appropriate) 04/17/1881404/17/18 1628 Daily Care Interventions Self-Care Promotion independence encouraged -- Toribio Fall Risk History of Falling 25 -- Secondary Diagnosis 15 -- Ambulatory Aids 0 -- Intravenous Therapy/Heparin/Saline Lock 20 -- Gait/Transferring 10 -- Mental Status 15 -- Score 85 -- OTHER Toribio Fall Risk High -- Activity Activity Type -- activity adjusted per tolerance;activity encouraged;ambulated in chung Activity Assistance Provided -- assistance, 1 person Assistive Device Utilized -- other (see comments) (IV pole with assistance) Restraint Interventions Safety Promotion/Fall Prevention activity supervised -- Positioning Body Position -- up in chair Goal: Infection Control Outcome: Ongoing (Interventions Implemented as Appropriate) 04/17/18814 Safety Interventions Isolation Precautions standard precautions maintained Infection Prevention single patient room provided Coping Strategies Supportive Measures active listening utilized Goal: Discharge Needs Assessment Outcome: Ongoing (Interventions Implemented as Appropriate) 04/08/18193504/10/18 1602 04/11/181999 Discharge Needs Assessment Concerns To Be Addressed -- care coordination/care conferences;cognitive/perceptual concerns;decision making concerns;home safety concerns -- Readmission Within The Last 30 Days -- no previous admission in last 30 days -- Equipment Needed After Discharge -- none -- Discharge Facility/Level Of Care Needs -- rehabilitation facility -- Current Discharge Risk dependent with mobility/activities of daily living -- -- Discharge Disposition -- still a patient -- Current Health Outpatient/Agency/Support Group Needs -- inpatient rehabilitation facility (specify) -- Anticipated Changes Related to Illness -- inability to work -- Activity/Self Care Review of Systems Equipment Currently Used at Home -- none -- Living Environment Transportation Available -- -- agency transportation Goal: Interdisciplinary Rounds/Family Conf Outcome: Ongoing (Interventions Implemented as Appropriate) 04/15/18 0501 Interdisciplinary Rounds/Family Conf Participants nursing;patient;physician Problem: Seizure Disorder/Epilepsy (Adult) Goal: Signs and Symptoms of Listed Potential Problems Will be Absent, Minimized or Managed (SeizureDisorder/Epilepsy) Signs and symptoms of listed potential problems will be absent, minimized or managed by discharge/transition of care (reference Seizure Disorder/Epilepsy (Adult) CPG). Outcome: Ongoing (Interventions Implemented as Appropriate) 04/17/18 0815 Seizure Disorder/Epilepsy Problems Assessed (Seizure Disorder/Epilepsy) all Problems Present (Seizure Disorder/Epilepsy) none * Plan of Care - Bita Macedo RN - 04/17/2018 5:53 AM EDT Problem: Patient Care Overview Goal: Plan of Care Review 04/17/18 0548 Coping/Psychosocial Plan Of Care Reviewed With patient Plan of Care Review Progress improving OUTCOME EVALUATION NOTE: OUTCOME SUMMARY: Patient oriented at times but forgets to call nurse for assist. Bed alarm on. Patient slept in naps. Patient voiding large amount. Taking PO fluids we. Left arm wound vac in place with sero sang drainage. Patient reports adequate pain control with tylenol. Patient walks to bath room with 1 assist. PLAN MOVING FORWARD: Monitor pain control. Assist with activity. INDIVIDUALIZED FALL PREVENTION INTERVENTIONS: Patient-specific fall risk factors per assessment: [current deficits]: History of fall, weakness, NWB left arm Assistance [level of assistance required for transfers and ambulation]: 1 assist Supervision [direct monitoring required during toileting and ADLs]: Hands on Surveillance [continuous indirect monitoring]: Bed alarm, call light in reach, bed alarm Patient-specific fall prevention interventions for sensory deficits provided, if applicable: [X] Yes adjust lighting CPG GOAL OUTCOME EVALUATION: * Plan of Care - Karine Carroll RN - 04/16/2018 3:46 AM EDT Problem: Skin Integrity Impairment, Risk/Actual (Adult) Goal: Identify Related Risk Factors and Signs and Symptoms Related risk factors and signs and symptoms are identified upon initiation of Human Response Clinical Practice Guideline (CPG) Outcome: Ongoing (Interventions Implemented as Appropriate) 04/10/18 1601 Skin Integrity Impairment, Risk/Actual Skin Integrity Impairment, Risk/Actual: Related Risk Factors cognitive impairment;edema;surgery/procedure Signs and Symptoms (Skin Integrity Impairment) bulla/blister/vesicle;edema Goal: Skin Integrity/Wound Healing Patient will demonstrate the desired outcomes by discharge/transition of care. Outcome: Ongoing (Interventions Implemented as Appropriate) 04/16/18 0329 Skin Integrity Impairment, Risk/Actual (Adult) Skin Integrity/Wound Healing making progress toward outcome Problem: Patient Care Overview Goal: Plan of Care Review Outcome: Ongoing (Interventions Implemented as Appropriate) 04/16/18 0329 Coping/Psychosocial Plan Of Care Reviewed With patient Plan of Care Review Progress improving OUTCOME EVALUATION NOTE: OUTCOME SUMMARY: Christy Ambrose had a great night, he appeared to get ample sleep and rest. VSS, BP better controled this shift than previous, no PRN BP meds given overnight as of right now. Pt denies pain, Wound vac in place Left forearm, minimal output over shift, arm appears to be less swollen this shift. PLAN MOVING FORWARD: Continue to monitor, Continue to work with PT and OT, Encourage ambulation, promote IS use Discharge plan INDIVIDUALIZED FALL PREVENTION INTERVENTIONS: Patient-specific fall risk factors per assessment: [current deficits]: History of falls Assistance [level of assistance required for transfers and ambulation]: Non skid socks Supervision [direct monitoring required during toileting and ADLs]: Arms reach Surveillance [continuous indirect monitoring]: Chair and bed alarm, Patient-specific fall prevention interventions for sensory deficits provided, if applicable: Yes CPG GOAL OUTCOME EVALUATION: Goal: Fall Prevention-Safe Patient Handling Outcome: Ongoing (Interventions Implemented as Appropriate) 04/15/18 0850 04/15/18 1933 04/15/18 2115 Daily Care Interventions Self-Care Promotion independence encouraged -- -- Toribio Fall Risk History of Falling -- -- 25 Secondary Diagnosis -- -- 15 Ambulatory Aids -- -- 15 Restraint Interventions Safety Promotion/Fall Prevention -- activity supervised;nonskid shoes/slippers when out of bed;safety round/check completed -- Activity Activity Type -- activity adjusted per tolerance -- Activity Assistance Provided -- assistance, 1 person -- Assistive Device Utilized -- none -- Goal: Infection Control Outcome: Ongoing (Interventions Implemented as Appropriate) 04/16/18 0329 Safety Interventions Isolation Precautions standard precautions maintained Infection Prevention single patient room provided Coping Strategies Supportive Measures active listening utilized Goal: Discharge Needs Assessment 04/08/18 1936 04/10/18 1602 Discharge Needs Assessment Concerns To Be Addressed -- care coordination/care conferences;cognitive/perceptual concerns;decision making concerns;home safety concerns Readmission Within The Last 30 Days -- no previous admission in last 30 days Equipment Needed After Discharge -- none Discharge Facility/Level Of Care Needs -- rehabilitation facility Current Discharge Risk dependent with mobility/activities of daily living -- Discharge Disposition -- still a patient Current Health Outpatient/Agency/Support Group Needs -- inpatient rehabilitation facility (specify) Anticipated Changes Related to Illness -- inability to work Activity/Self Care Review of Systems Equipment Currently Used at Home -- none Goal: Interdisciplinary Rounds/Family Conf Outcome: Ongoing (Interventions Implemented as Appropriate) 04/15/18 0501 Interdisciplinary Rounds/Family Conf Participants nursing;patient;physician Problem: Seizure Disorder/Epilepsy (Adult) Goal: Signs and Symptoms of Listed Potential Problems Will be Absent, Minimized or Managed (SeizureDisorder/Epilepsy) Signs and symptoms of listed potential problems will be absent, minimized or managed by discharge/transition of care (reference Seizure Disorder/Epilepsy (Adult) CPG). Outcome: Ongoing (Interventions Implemented as Appropriate) 04/16/18 0329 Seizure Disorder/Epilepsy Problems Assessed (Seizure Disorder/Epilepsy) all Problems Present (Seizure Disorder/Epilepsy) none * Plan of Care - Negrita French RN - 04/15/2018 6:52 PM EDT Problem: Skin Integrity Impairment, Risk/Actual (Adult) Goal: Identify Related Risk Factors and Signs and Symptoms Related risk factors and signs and symptoms are identified upon initiation of Human Response Clinical Practice Guideline (CPG) Outcome: Ongoing (Interventions Implemented as Appropriate) 04/10/18 1601 Skin Integrity Impairment, Risk/Actual Skin Integrity Impairment, Risk/Actual: Related Risk Factors cognitive impairment;edema;surgery/procedure Signs and Symptoms (Skin Integrity Impairment) bulla/blister/vesicle;edema OUTCOME EVALUATION NOTE: OUTCOME SUMMARY: Pt had a good day, Disorientated to situation but easily redirected. BP ran high reaching the 200s at times. Scheduled medications and prn were given as needed and MD made aware. Pt remained asymptomatic at all times. Pt denies having pain but reports discomfort at wound site. Wound Vac remains c/d/i, without air leak, dressing was changed today per Vascular surgery team and pretreated 20mg of Oxy for pain. Pt ambulated x1 in the chung and oob to the bathroom. Pt voiding adequately, -BM, PLAN MOVING FORWARD: Monitor for signs and symptoms of infection, bleeding and pain. Encourage IS. INDIVIDUALIZED FALL PREVENTION INTERVENTIONS: Patient-specific fall risk factors per assessment: [current deficits]: IV tubing, recent surgery, generalized weakness, narcotic use, and chronic condition Assistance [level of assistance required for transfers and ambulation]: I assist, SBA Supervision [direct monitoring required during toileting and ADLs]: Eyes on, hands on Surveillance [continuous indirect monitoring]: Call daniels in reach, purposeful rounding, masimo Patient-specific fall prevention interventions for sensory deficits provided, if applicable: [X] Yes Lighting adjusted for tasks, non-skid socks when out of bed CPG GOAL OUTCOME EVALUATION: Ongoing Goal: Skin Integrity/Wound Healing Patient will demonstrate the desired outcomes by discharge/transition of care. Outcome: Ongoing (Interventions Implemented as Appropriate) 04/15/18 0501 Skin Integrity Impairment, Risk/Actual (Adult) Skin Integrity/Wound Healing making progress toward outcome Problem: Patient Care Overview Goal: Plan of Care Review Outcome: Ongoing (Interventions Implemented as Appropriate) 04/15/18 1111 Coping/Psychosocial Plan Of Care Reviewed With patient Plan of Care Review Progress improving Goal: Individualization & Mutuality Outcome: Ongoing (Interventions Implemented as Appropriate) 04/08/18 1936 04/10/18 1602 Mutuality/Individual Preferences What Anxieties, Fears or Concerns Do You Have About Your Health or Care? JUAN PABLO -- What Questions Do You Have About Your Health or Care? JUAN PABLO -- What Information Would Help Us Give You More Personalized Care? JUAN PABLO -- Individualization Patient Specific Goals -- Walk with PT Patient Specific Interventions -- Reorient Goal: Fall Prevention-Safe Patient Handling Outcome: Ongoing (Interventions Implemented as Appropriate) 04/15/18 0850 Daily Care Interventions Self-Care Promotion independence encouraged Toribio Fall Risk History of Falling 25 Secondary Diagnosis 15 Ambulatory Aids 15 Intravenous Therapy/Heparin/Saline Lock 20 Gait/Transferring 10 Mental Status 15 Score 100 OTHER Toribio Fall Risk High Restraint Interventions Safety Promotion/Fall Prevention activity supervised Positioning Body Position independent Activity Activity Type activity adjusted per tolerance Activity Assistance Provided assistance, 2 people;assistance, 1 person Assistive Device Utilized none Goal: Infection Control Outcome: Ongoing (Interventions Implemented as Appropriate) 04/15/18 0850 Safety Interventions Isolation Precautions standard precautions maintained Infection Prevention rest/sleep promoted Coping Strategies Supportive Measures active listening utilized Goal: Discharge Needs Assessment Outcome: Ongoing (Interventions Implemented as Appropriate) 04/08/18 1936 04/10/18 1602 04/11/181999 Discharge Needs Assessment Concerns To Be Addressed -- care coordination/care conferences;cognitive/perceptual concerns;decision making concerns;home safety concerns -- Readmission Within The Last 30 Days -- no previous admission in last 30 days -- Equipment Needed After Discharge -- none -- Discharge Facility/Level Of Care Needs -- rehabilitation facility -- Current Discharge Risk dependent with mobility/activities of daily living -- -- Discharge Disposition -- still a patient -- Current Health Outpatient/Agency/Support Group Needs -- inpatient rehabilitation facility (specify) -- Anticipated Changes Related to Illness -- inability to work -- Activity/Self Care Review of Systems Equipment Currently Used at Home -- none -- Living Environment Transportation Available -- -- agency transportation Goal: Interdisciplinary Rounds/Family Conf Outcome: Ongoing (Interventions Implemented as Appropriate) 04/15/18 0501 Interdisciplinary Rounds/Family Conf Participants nursing;patient;physician Problem: Seizure Disorder/Epilepsy (Adult) Goal: Signs and Symptoms of Listed Potential Problems Will be Absent, Minimized or Managed (SeizureDisorder/Epilepsy) Signs and symptoms of listed potential problems will be absent, minimized or managed by discharge/transition of care (reference Seizure Disorder/Epilepsy (Adult) CPG). 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 Receiving wound vac.to left arm. Spoke with patient and confirmed that he still wanted to go to rehab at discharge. Tried to call Ilda (mom) just to update her and talk about discharge destination. Left a message on her phone to call me back. Plan: CM will continue to follow for coordination of care and to facilitate discharge planning. * Plan of Care - Dania Oliveira OTA - 04/15/2018 11:33 AM EDT Occupational Therapy Treatment Note Treatment Number OT: (P) 2 Pertinent History of Current Problem: (P) Christy Ambrose is a 57 y.o. 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 Session focused on promoting activity tolerance during ADL tasks to promote self-care health management and mobilization of functional household distances to increase endurance and strength. Pt tolerated OT session well today however continues to require verbal / tactile reminders re: precautions of LUE during functional tasks. Please refer to associated flowsheet data listed below for treatment session details. Pt will benefit from ongoing therapeutic interventions to achieve pt's and therapy goals. Staff Recommendations: General Recommendations: Orientation / Communication: - Utilize cues such as calendars and clocks - Keep the date on the whiteboard accurate - Encourage communication and re-orient patient frequently - Have familiar objects from patient's home present in the room - Attempt consistency in nursing staff - Restrict visitors to 2-3 at a time - Provide brief, clear instructions and direction - Allow frequent rests; - Daytime naps encouraged unless interferes with nighttime pattern -Environment: - Ambulate or mobilize patient often - Ensure consistent cues for night / day cycle - Limit excess noise (staff, equipment, visitors at night, etc.) - Sleep hygiene (dim light at nighttime, bright during the day - Daily activity - Encourage participation in self-care activies - Assist pt to chair for meals as able - Encourage use of commode vs bedpan as able Anticipated Discharge Disposition: (P) inpatient rehabilitation facility Pager: [phone] IRLANDA MUNOZ 04/15/2018 Occupational Therapy Rehabilitation Department 04/15/18 1111 Rehab Evaluation Document Type therapy note (daily note) Total Evaluation Minutes, Occupational Therapy 23 Patient Effort good Symptoms Noted During/After Treatment none General Information Patient Profile Review yes Patient/Family/Caregiver Comments/Observations I have to pretend my arm isn't here General Observations of Patient arrived to find pt working w/ PT Pertinent History of Current Problem Christy Chacko Arnol is a 57 y.o. 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,repair of AVF with patch angioplasty and forarm and hand fasciotomies Hearing Precautions/Limitations WFL Precautions/Restrictions fall;weight bearing Precautions Comments LUE NWB; hx of TBI; wound vac Limitations/Impairments safety/cognitive Treatment Number OT 2 Vital Signs O2 Device RA Cognitive Assessment Interventions Behavior/Mood Observations (Cognitive) behavior appropriate to situation;alert;cooperative Orientation Status (Cognitive) oriented to;person;place;situation (required vc's for year ) Attention (Cognitive) mild impairment;difficulty attending to task/directions;difficult dividing attention;needs cues to redirect Follows Commands/Answers Questions (Cognitive) able to follow single-step instructions;needs cueing;needs increased time Personal Safety (Cognitive) mild impairment;decreased awareness, need for assist;decreased awareness, need for safety;decreased insight to deficits;impulsive Pain Scale/Rating Pain Assessment Scale Numbers (Numeric Rating Pain Scale) Pain Level 0 Pain Goal 0 Transfer Assessment/Treatment Bed-Chair [place] (Transfers) contact guard assist [id number] Assistive Device (Transfers) (IV pole for support ) [place] (Sit-Stand Transfers) set up required;verbal cues required;contact guard assist [place] (Stand-Sit Transfers) verbal cues required;contact guard assist Ekf-Ergzi-Ufo Assistive Device (Transfers) (IV pole ) Safety Issues (Transfers) sequencing ability decreased;step length decreased;weight-shifting ability decreased Impairments (Transfers) balance impaired;strength decreased Comment (Transfers) cues for safe hand placement and task initation Gait Assessment/Treatment [place] (Gait) verbal cues required;contact guard assist Assistive Device (Gait) gait belt (IV pole ) Distance in Feet (Gait) 25 Safety Issues (Gait) balance decreased during turns;sequencing ability decreased;step length decreased Impairments (Gait) balance impaired;strength decreased Comment (Gait) chair <> bathroom; required verbal / tactile cues for IV pole management, directions, and task intiation Bathing Assessment/Training Comment (Bathing) pt declined washing face Upper Body Dressing Assessment/Training Position (UB Dressing) sitting [place] Level (UB Dressing) contact guard assist Comment (UB Dressing) don/doff patti Grooming Assessment/Training Position (Grooming) sitting [place] Level (Grooming) set up required;verbal cues required;contact guard assist Impairments (Grooming) balance impaired;flexibility decreased;strength decreased Comment (Grooming) pt performed oral/hair care while sitting sink side; pt required vc's for task initiation & completeness during both tasks; assist required to apply toothpaste to toothbrush Coping Observed Emotional State accepting;calm;cooperative Verbalized Emotional State acceptance Plan of Care Review Plan Of Care Reviewed With patient Progress improving Toileting Goal Toileting Goal, Date Established 04/11/18 Toileting Goal, Time to Achieve 2 wks Toileting Goal, Activity Type Patient will complete toileting tasks (hygiene, clothing management, transfers) with supervision and with AE, as needed Toileting Goal, Outcome goal ongoing LB Dressing Goal LB Dressing Goal, Date Established 04/11/18 LB Dressing Goal, Time to Achieve 2 wks LB Dressing Goal, Activity Type Patient will don/doff LB clothing with supervision, seated, with AE, as needed LB Dressing Goal, Outcome goal ongoing UB Dressing Goal UB Dressing Goal, Date Established 04/11/18 UB Dressing Goal, Time to Achieve 2 wks UB Dressing Goal, Activity Type Patient will don/doff UB clothing with supervision, seated UB Dressing Goal, Outcome goal ongoing Occupational Therapy Goal OT Goal, Date Established 04/11/18 OT Goal, Time to Achieve 2 wks OT Goal, Activity Type Patient will ambulate household distances with supervision with AD, as needed OT Goal, Additional Goal Patient will maintain precautions independently without verbal cues while participating in functional tasks OT Goal, Outcome goal ongoing Clinical Impression Criteria for Skilled Therapeutic Interventions Met yes;treatment indicated Rehab Potential good, to achieve stated therapy goals Therapy Frequency 2-3 times/wk Anticipated Discharge Disposition inpatient rehabilitation facility * Consult Note - Violetta Deng RN - 04/15/2018 10:32 AM EDT Images from the original note were not included. Certified Wound Care Nurse Note Situation: Seeing Christy Ambrose As a follow up for left arm blisters. Background: eD-H notes reviewed for history, admitting diagnosis and active problem list. Discussedpatient with RN prior to assessment. RN denies any skin concerns except for left arm. States that patient is independent with mobility, no sacral skin concerns. Wound Assessment and Care Provided: Patient sitting up in the chair, alert. Purpose for visit explained and permission given for assessment. Left arm swollen, NPWT in place. Left upper arm open to air with intact scabs to the anterior arm and dry, brown discoloration to the lateral and medial aspect. Page placed to vascular team as per last wound care note, deferring to vascular surgery for management. Discussed with Nilda Minaya who states she will assess and treat upper arm with NPWT dressingchange today. Wound care will sign off at this time. See photos: Left medial upper arm Left anterior upper arm Aleks Score: 19 Last Pressure Ulcer Prevention assessment: Shift Pressure Injury Prevention Occiput: No Injury Thoracic Spine: No Injury Sacral: No Injury Ischial - left: No Injury Ischial - right: No Injury Heel - left: No Injury Heel - right: No Injury Elbow - left: No Injury Elbow - right: No Injury Device Sites: O2 sat monitor, IV sites, SCD's/venodynes Other Sites: wound vac Nutritional Status Wt Readings from Last 1 Encounters: 04/06/18 91.6 kg (201 lb 15.1 oz) Body mass index is 28.91 kg/(m^2). Current bed: [facility] Assessment: Left upper arm with dry, intact scabs. Vascular team to evaluate and treat. Wound Care Recommendations: Vascular surgery managing left upper arm and NPWT to left lower arm. Following hospital standard for pressure ulcer prevention and skin care. Refer to adult/pediatric pressure ulcer prevention job aid in the clinical policy library. Wound care consult will be completed at this time. If the above plan of care is not effective or the patient develops new skin issues/concerns please reconsult. Discussed plan with: /PRAVEENA/PA: Nilda Minaya RN: Negrita Please contact Violetta Deng RN on pager [phone] or the wound care team at [phone] or pager [phone] with skin and wound care concerns or questions. * Plan of Care - Miguel Angel Pierce SLP - 04/15/2018 10:16 AM EDT Speech-Language Pathology Document Type: therapy note (daily note) Pertinent History of Current Problem: Pt admitted after found down at his home w/ bleeding from L AVF. He noted leaking from his AVF. EMS found the pt unresponsive in a pool of blood. Subsequently had PEA arrest at home. Sp ROSC w/ several rounds of chest compressions and 1 dose epi. Intubated in field. Now extubated and being worked up for possible intracranial event. Speech consulted for swallow evaluation. Assessment: Pt seen for dysphagia. Pt demonstrated normal oral manipulation of both solids and thin liquids. Without signs of aspiration across consistencies. Tolerating regular diet. No further need for speech intervention. Will signoff. Please see flow sheet data below for specific details, POC and goals. 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 General Observations of Patient No further seizure activity is noted. Current Diet Limitations regular solid;thin liquids Oral Motor Structure/Functional Assess Secretion Management (Oral Motor Assessment) WNL/WFL Mucosal Quality (Oral Motor Assessment) good Velar Elevation (Oral Motor Assessment) WFL Volitional swallow (Oral Motor Assessment) no issues initiating volitional swallow Volitional cough (Oral Motor Assessment) no issues initiating volitional cough General Feeding/Swallowing Observations Observation of Posture During Feeding Sitting in bedside cardiac chair. NIS Thin Liquid Trial Thin Liquid, Mode of Presentation (Nis) self-fed;straw Thin Liquid, Volume Presented (mL) (Nis) patient controlled volumes Thin Liquid, Pharyngeal Phase Results (Nis) safe swallow, no signs/symptoms of aspiration or penetration NIS Solid Trial Solid Food, Mode of Presentation (Nis) self-fed Solid Food, Volume Presented (mL) (Nis) patient controlled volumes Solid Food, Oral Phase Results (Nis) intact oral phase without signs of dysfunction Solid Food, Pharyngeal Phase Results (Nis) safe swallow, no signs/symptoms of aspiration or penetration Plan of Care Review Plan Of Care Reviewed With patient Dysphagia Goal Dysphagia Goal, Date Established 04/08/18 Dysphagia Goal, Time to Achieve by discharge Oral Nutritional Level Goal safely tolerates/maintains adequate oral nutrition;no signs/symptoms ofaspiration present Dysphagia Goal, Outcome goal met Clinical Impression FURNITURE [employer]ER Swallowing Diagnosis other (see comments) (Functionally appearing oropharyngeal swallow) Rehab Potential/Prognosis, Swallowing good, to achieve stated therapy goals Therapy Frequency other (see comments) (D/C from speech intervention.) FURNITURE [employer]KER Diet Recommendation regular solid;thin liquids * Plan of Care - Apurva Cassidy PTA - 04/15/2018 9:45 AM EDT Physical Therapy Treatment Treatment Number PT: 2 Pertinent History of Current Problem: Christy Ambrose is a 57 y.o. male w/ renal transplant presentedwith massive bleeding and PEA arrest on 04/06 from ruptured LUE mycotic AVF aneurysm s/p exploration, repair of AVF with patch angioplasty and forarm and hand fasciotomies Precautions/Restrictions: fall, weight bearing Precautions Comments: LUE NWB; hx of TBI; wound vac Assessment: Pt seen for functional mobility, strength, endurance and pt education. Pt with grossly unsteady standing balance initially, but as pt ambulated around the room and subsequently out in thehallways, gait remained a short shuffling pattern but pt became steadier and managed with the IV pole with contact guard. Encourage increased ambulation to progress mobility and balance. Please see the flow sheet below for patient details and mobility. Pt would benefit from ongoing physical therapyinterventions. Staff Mobility Recommendations: Ambulate with IV pole and gait belt, 1 assist Anticipated Discharge Disposition: inpatient rehabilitation facility [facility] Pager: [phone] Inpatient Physical Therapy 04/15/18 1097 Rehab Evaluation Document Type therapy note (daily note) Total Evaluation Minutes, Physical Therapy 25 (TE-F x 2) Patient Effort excellent Symptoms Noted During/After Treatment fatigue General Information Patient/Family/Caregiver Comments/Observations I need to get moving more, and it will get better Pertinent History of Current Problem Christyamty Delunaon is a 57 y.o. 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,repair of AVF with patch angioplasty and forarm and hand fasciotomies Precautions/Restrictions fall;weight bearing Precautions Comments LUE NWB; hx of TBI; wound vac Limitations/Impairments safety/cognitive Treatment Number PT 2 Living Environment Living Environment Comment pt lives w/ mother in 5th floor apartment. building has an elevator and ramp to enter. pt has tub shower, able to use railings for support as needed. pt is able to and previously was driving Functional Level Prior Prior Functional Level Comment pt reports he was fully functional, able to dress, cook, clean independently. 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 pt usually ambulates w/o AD, but occasionally will walk w/ cane Pain Scale/Rating Pain Assessment Scale Word (verbal rating pain scale) Pain Level 0 Bed Mobility Assessment/Treatment Assistive Device (Bed Mobility) bed rails [id number] [place] (Bed Mobility) supervision required Comment (Bed Mobility) HOB elevated, extra time required Safety Issues (Bed Mobility) decreased use of arms for pushing/pulling Impairments (Bed Mobility) strength decreased Transfer Assessment/Treatment [place] (Sit-Stand Transfers) contact guard assist [place] (Stand-Sit Transfers) contact guard assist [id number]-Tws Assistive Device (Transfers) (IV pole) Safety Issues (Transfers) balance decreased during turns;step length decreased;loses balance backward Impairments (Transfers) balance impaired;strength decreased Comment (Transfers) Initially falling back onto bed with standing or marching in place, able to steady himself with the IV pole Gait Assessment/Treatment [place] (Gait) contact guard assist Assistive Device (Gait) gait belt (IV pole) Distance in Feet (Gait) 150 Comment (Gait) Short shuffling steps, steady with no LOB, several standing rest breaks Deviations (Gait) dez decreased;step length decreased Safety Issues (Gait) balance decreased during turns;step length decreased Impairments (Gait) balance impaired;strength decreased Plan of Care Review Plan Of Care Reviewed With patient Bed Mobility Goal Bed Mobility Goal, Date Established 04/11/18 Bed Mobility Goal, Time to Achieve 1 wk Bed Mobility Goal, Activity Type supine to sit/sit to supine;sidelying to sit/sit to sidelying Bed Mobility Goal, [place] Level independent Bed Mobility Goal, Outcome Achieved goal ongoing Gait Training Goal Gait Training Goal, Date Established 04/11/18 Gait Training Goal, Time to Achieve 2 wks Gait Training Goal, [place] Level independent Gait Training Goal, Assist Device other (see comments) (LRD ) Gait Training Goal, Distance to Achieve 150 ft Gait Training Goal, Outcome goal ongoing Transfer Training Goal Transfer Training Goal, Date Established 04/11/18 Transfer Training Goal, Time to Achieve 2 wks Transfer Training Goal, Activity Type all transfers Transfer Train Goal, [place] Level independent Transfer Training Goal, Assist Device (LRD) Transfer Training Goal, Outcome goal ongoing Clinical Impression Therapy Frequency 2-4 times/wk Anticipated Discharge Disposition inpatient rehabilitation facility * Plan of Care - Karine Carroll RN - 04/15/2018 5:51 AM EDT Problem: Skin Integrity Impairment, Risk/Actual (Adult) Goal: Identify Related Risk Factors and Signs and Symptoms Related risk factors and signs and symptoms are identified upon initiation of Human Response Clinical Practice Guideline (CPG) Outcome: Ongoing (Interventions Implemented as Appropriate) 04/10/18 1601 Skin Integrity Impairment, Risk/Actual Skin Integrity Impairment, Risk/Actual: Related Risk Factors cognitive impairment;edema;surgery/procedure Signs and Symptoms (Skin Integrity Impairment) bulla/blister/vesicle;edema Goal: Skin Integrity/Wound Healing Patient will demonstrate the desired outcomes by discharge/transition of care. Outcome: Ongoing (Interventions Implemented as Appropriate) 04/15/18 0501 Skin Integrity Impairment, Risk/Actual (Adult) Skin Integrity/Wound Healing making progress toward outcome Problem: Patient Care Overview Goal: Plan of Care Review Outcome: Ongoing (Interventions Implemented as Appropriate) 10/05/18 0501 Coping/Psychosocial Plan Of Care Reviewed With patient Plan of Care Review Progress progress toward functional goals as expected OUTCOME EVALUATION NOTE: OUTCOME SUMMARY: Christy Ambrose had a good night, ample time allowed for rest and sleep. Alert, TBI at baseline occasional disorientation Call daniels in reach not always used appropriately No signs or symptoms of distress No complaints of pain. BP high at 4 am check, labetalol administered, BP remains high at recheck hydralazine administered Telemetry YES Voiding adequate amounts, spontaneously, Patient needs assistance holding the urinal Wound vac -125 setting, reinforced 2x overnight, Edges of clear tape keep rolling, protective sleeve placed over tape to prevent further need for reinforcement. PLAN MOVING FORWARD: Continue to monitor, promote fluids, promote independence, PT, OT Discharge planning INDIVIDUALIZED FALL PREVENTION INTERVENTIONS: Patient-specific fall risk factors per assessment: [current deficits]: History of falls, overestimates abilities Assistance [level of assistance required for transfers and ambulation]: Independent nonskid slippers when OOB Supervision [direct monitoring required during toileting and ADLs]: Arms reach Surveillance [continuous indirect monitoring]: Bed alarm, purposeful rounding, call daniels in reach Patient-specific fall prevention interventions for sensory deficits provided, if applicable: Yes CPG GOAL OUTCOME EVALUATION: Goal: Fall Prevention-Safe Patient Handling Outcome: Ongoing (Interventions Implemented as Appropriate) 04/14/18704/14/18192104/15/18500 Toribio Fall Risk History of Falling -- -- 25 Secondary Diagnosis -- -- 15 Ambulatory Aids -- -- 15 Intravenous Therapy/Heparin/Saline Lock -- -- 20 Gait/Transferring -- -- 10 Mental Status -- -- 15 Score -- -- 100 OTHER Toribio Fall Risk -- -- High Restraint Interventions Safety Promotion/Fall Prevention -- activity supervised;nonskid shoes/slippers when out of bed;safety round/check completed -- Positioning Body Position -- independent -- Activity Activity Type -- activity adjusted per tolerance -- Activity Assistance Provided -- assistance, 1 person -- Assistive Device Utilized none -- -- Goal: Infection Control Outcome: Ongoing (Interventions Implemented as Appropriate) 04/14/18212804/15/18500 Safety Interventions Isolation Precautions -- standard precautions maintained Infection Prevention -- rest/sleep promoted;single patient room provided;environmental surveillanceperformed Coping Strategies Supportive Measures active listening utilized;self-responsibility promoted;verbalization of feelings encouraged -- Goal: Discharge Needs Assessment Outcome: Ongoing (Interventions Implemented as Appropriate) 04/08/18 1936 04/10/18 1602 04/11/181999 Discharge Needs Assessment Concerns To Be Addressed -- care coordination/care conferences;cognitive/perceptual concerns;decision making concerns;home safety concerns -- Readmission Within The Last 30 Days -- no previous admission in last 30 days -- Equipment Needed After Discharge -- none -- Discharge Facility/Level Of Care Needs -- rehabilitation facility -- Current Discharge Risk dependent with mobility/activities of daily living -- -- Discharge Disposition -- still a patient -- Current Health Outpatient/Agency/Support Group Needs -- inpatient rehabilitation facility (specify) -- Anticipated Changes Related to Illness -- inability to work -- Activity/Self Care Review of Systems Equipment Currently Used at Home -- none -- Living Environment Transportation Available -- -- agency transportation Goal: Interdisciplinary Rounds/Family Conf Outcome: Ongoing (Interventions Implemented as Appropriate) 04/15/18 0501 Interdisciplinary Rounds/Family Conf Participants nursing;patient;physician Problem: Seizure Disorder/Epilepsy (Adult) Goal: Signs and Symptoms of Listed Potential Problems Will be Absent, Minimized or Managed (SeizureDisorder/Epilepsy) Signs and symptoms of listed potential problems will be absent, minimized or managed by discharge/transition of care (reference Seizure Disorder/Epilepsy (Adult) CPG). Outcome: Ongoing (Interventions Implemented as Appropriate) 04/15/18 0501 Seizure Disorder/Epilepsy Problems Assessed (Seizure Disorder/Epilepsy) all Problems Present (Seizure Disorder/Epilepsy) none * Op Note - Yimi Easton MD - 04/14/2018 8:19 AM EDT [facility] Operative Note Patient Name: Christy Ambrose : [id number] MR#: [id number] Case Date: 04/14/2018 Surgeon: Surgeon(s) and Role: * Yimi Easton MD - Primary * Tristin Marrero MD - Resident-Surgeon Huber Preoperative diagnosis: open LUE fasciotomies Postoperative diagnosis: open LUE fasciotomies Procedures: 1. Sharp excisional debridement of skin, subcutaneous tissue, and muscle 2. Partial closure of open fasciotomies 3. Wound vac negative pressure therapy dressing placement Findings: Healthy appearing tissues with granulation tissue. Small amount of necrotic muscle and subcutaneous tissue debrided. Proximal and distal aspects of incisions closed. Wound vac placed. 1 piece of black sponge. Anesthesia: Anesthesia type not filed in the log. Estimated Blood Loss: <5 cc Fluids: 300 cc UOP: Not recorded Specimens removed during surgery: None Drains: Wound VAC -125 mmHg low continuous Surgical Closure: Other Than Primary Closure - deep and superficial layers are left completely openduring original surgery Disposition: awakened from anesthesia, extubated and taken to the recovery room in a stable condition, having suffered no apparent untoward event. Condition: doing well without problems (Please see the Surgical Encounter Summary for any Implant and Specimen details pertinent to this patient.) HPI/Surgical Indications: 57 y.o.??male??with PMH of HTN, TBI w/ epilepsy, s/p donor renaltransplant 2002 (on tacrolimus and cellcept). Per report from family he has been suffering from LUEedema, and dilation of his AVF and on coumadin for presumed upper extremity thrombosis. On the day of admission pt was found down in his home with massive hemorrhage from his LUE AVF. Per EMS the patient had a severe amount of blood loss in the bathroom and bedroom that resulted in PEA cardiac arrest at the scene. ??He received epinephrine, 2.5 L of normal saline with ROSC??obtained. ??At OSH pt received 6 units of blood, intubated, Gonzalez scanned given that he was found down. [facility] 2 tourniquets on since 9:49AM. Pt was taken to OR with vascular emergently for LUE exploration and control of hemorrhage. Plan for washout, partial closure, and vac placement to open fasciotomy and wound. Procedure Description: After informed consent was obtained the patient was brought back to the operating room and placed supine on the OR table. General anesthesia was induced and LMA was placed. A timeout was performed. Attention was then turned to the patient's left arm, which was prepared and draped in the usual sterile fashion. The wound was irrigated and scrubbed with scrub brush. Metzenbaumscissors and #15 blade were used to sharply debride necrotic tissues. The wound was again irrigatedand wound vac was placed. Single piece of black sponge. No leak. Dr. Easton was scrubbed and present for the entirety of the procedure. Infection Bundle used? No Attending Attestation I was the attending physician supervising the resident/fellow in the above care and I was present with the resident/fellow for the entire procedure. I was present during the intraservice time as documented by the sedation RN. * Plan of Care - Inder Miller RN - 04/13/2018 3:15 PM EDT Problem: Patient Care Overview Goal: Plan of Care Review OUTCOME EVALUATION NOTE: OUTCOME SUMMARY: Resting comfortably at this time. PLAN MOVING FORWARD: Ad on to OR this afternoon, no c/o pain, will continue to monitor. SAFE SLEEP EDUCATION PROVIDED: Eyes on and arms length. INDIVIDUALIZED FALL PREVENTION INTERVENTIONS: All activities. Surveillance [continuous indirect monitoring]: Purposeful hourly rounding. CPG GOAL OUTCOME EVALUATION: Goal: Individualization & Mutuality Outcome: Ongoing (Interventions Implemented as Appropriate) 04/08/18 1936 04/10/18 1602 Mutuality/Individual Preferences What Anxieties, Fears or Concerns Do You Have About Your Health or Care? JUAN PABLO -- What Questions Do You Have About Your Health or Care? JUAN PABLO -- What Information Would Help Us Give You More Personalized Care? JUAN PABLO -- Individualization Patient Specific Goals -- Walk with PT Patient Specific Interventions -- Reorient Keep team plan of care info current. S:No chest pain O:A+OX2 confused about time. A:Tolerating tele rhythms, NSR P:Continue on tele monitoring. Goal: Fall Prevention-Safe Patient Handling Outcome: Ongoing (Interventions Implemented as Appropriate) 04/13/18 0643 04/13/18 0755 04/13/18 0800 Daily Care Interventions Self-Care Promotion -- independence encouraged -- Toribio Fall Risk History of Falling -- [...] round/check completed Positioning Body Position -- -- independent Activity Activity Type -- -- activity adjusted per tolerance Activity Assistance Provided -- -- assistance, 1 person Assistive Device Utilized none -- -- Standby assist. Goal: Infection Control Outcome: Ongoing (Interventions Implemented as Appropriate) 04/13/18 0755 04/13/18 0800 Safety Interventions Isolation Precautions -- standard precautions maintained Infection Prevention -- rest/sleep promoted Coping Strategies Supportive Measures active listening utilized;positive reinforcement provided -- Good hand hygiene, and am care. Goal: Discharge Needs Assessment Outcome: Ongoing (Interventions Implemented as Appropriate) 04/08/18 1936 04/10/18 1602 04/11/181999 Discharge Needs Assessment Concerns To Be Addressed -- care coordination/care conferences;cognitive/perceptual concerns;decision making concerns;home safety concerns -- Readmission Within The Last 30 Days -- no previous admission in last 30 days -- Equipment Needed After Discharge -- none -- Discharge Facility/Level Of Care Needs -- rehabilitation facility -- Current Discharge Risk dependent with mobility/activities of daily living -- -- Discharge Disposition -- still a patient -- Current Health Outpatient/Agency/Support Group Needs -- inpatient rehabilitation facility (specify) -- Anticipated Changes Related to Illness -- inability to work -- Activity/Self Care Review of Systems Equipment Currently Used at Home -- none -- Living Environment Transportation Available -- -- agency transportation The will arrange for DC, when medically ready. Goal: Interdisciplinary Rounds/Family Conf Outcome: Ongoing (Interventions Implemented as Appropriate) 04/12/18 0436 Interdisciplinary Rounds/Family Conf Participants nursing;patient;physician Purposeful hourly rounding. * Care Management - North Leong RN - 04/13/2018 1:58 PM EDT Based on discussions with the multi-disciplinary healthcare team, the patient would benefit from rehab/snf level of care at discharge. ?? I have met with the patient/automotive sales representative to discuss discharge planning needs. I have provided the [facility], Office of Care Management letter from the [employer] [facility] pertaining to rehab referrals. I have also provided a letter describing our affiliations within the [facility] and educated them about their right to choose where referrals are placed. ?? I reviewed the different levels of rehab including SNF, swing, acute and LTAC with the patient/automotive sales representative. ?? The patient/automotive sales representative has been provided a list of facilities within their preferred geographic area. ?? I have requested that the patient/automotive sales representative provide at least three choices for referral. ?? The patient/automotive sales representative have requested referrals to: ?? 1. [facility]. ?? 2. [facility] ?? 3. ?? Expected date of discharge: next 24- 48 hours Note routed to [facility] who will communicate referrals to facilities and provide any required information. * Plan of Care - Domi Rodriguez RN - 04/12/2018 7:01 PM EDT Problem: Patient Care Overview Goal: Plan of Care Review Outcome: Ongoing (Interventions Implemented as Appropriate) 04/12/18 0436 04/12/18 0744 Coping/Psychosocial Plan Of Care Reviewed With -- patient Plan of Care Review Progress progress toward functional goals as expected -- OUTCOME EVALUATION NOTE: OUTCOME SUMMARY: Pt pleasant, alert and oriented x2-3, does not remember why he came to the hospital, frequent re-orientation helpful. No complaints of pain, nausea this shift. Pt oob to chair this shift, walking around unit with walker, 2 assist. Pt NPO most of shift in hopes of going to OR, ate dinner at 1800, cellcept dose re- ordered for 1999, will be NPO p MN for possible OR tomorrow. Blood pressures elevated, scheduled meds increased, PRN dose labetalol given. PLAN MOVING FORWARD: Monitor hemodynamic status, pain levels, activity tolerance, lab values. Administer IV antibiotics as ordered. INDIVIDUALIZED FALL PREVENTION INTERVENTIONS: Patient-specific fall risk factors per assessment: [current deficits]: Prolonged hospitalization, weakness, deconditioning, recent surgery Assistance [level of assistance required for transfers and ambulation]: 1-2 assist Supervision [direct monitoring required during toileting and ADLs]: Hands on Surveillance [continuous indirect monitoring]: Purposeful rounding, Masimo, telemetry Patient-specific fall prevention interventions for sensory deficits provided, if applicable: N CPG GOAL OUTCOME EVALUATION: * Initial Assessments - North Leong RN - 04/12/2018 2:37 PM EDT Office of Care Management Initial Assessment North Leong RN reviewed record and discussed patient with Care Team. Source of Information: patient. Introduced self/reviewed role; services accepted. Reason for Hospitalization: Reason for Admission as Stated by Patient: I don't remember,,Christy Ginna Arnol is a 57 y.o. 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 Description of events leading up to injury includes: pt had called his mother earlier today to report leaking from his LUE AVF site. EMS arrived and found pt in a pool of blood in bathroom, pulseless and unresponsive. Performed several rounds of compressions and epi with ROSC. Tourniquets applied in field at approx 10 AM. Pt intubated in field. Pt taken to [facility], where second tourniquet applied and pt received 6U PRBC. Transferred to [facility]. Per H and P Dr. Burkett. Past Medical History: Diagnosis Date ??? BP (high blood pressure) ??? DVT (deep venous thrombosis) ??? Gout ??? Hypertension ??? Kidney problem ??? Pneumonia ??? TBI (traumatic brain injury) 1980 Hospitalizations Within the Past 30 Days: [facility] Anticipated Length Of Stay (If known): Expected Length of Hospitalization: 5-7 days Current Decision-Making Capacity: Alert but confused. Awakes when I speak but confused when answering. Advance Care Planning: Adv. Directives are from 2010, pt's POA is brother Lucas Ambrose who resides in [facility], pat's 86 year old mother Ilda is listed as second POA. Current Coping/Education/Information Needs: confused but alert to hospitalization Current Functional Ability: confused and difficult to determine until PT/OT evals. Functional Status Prior to Admission : Independent per his mother and still drives occasionally. Patient has a history of TBI at age of 19. He has capacity to understand, answer and engage in conversation but noted to take a moment to think of responses. Home Environment: Patient lives with his mother in an apartment. Social & Family Supports/Community Resources: denied per mother Behavioral Health History: denies, per mother. Substance Use/Abuse: denies. Per mother Health/Prescription Coverage: Primary Insurance: MEDICAID [place] Secondary Insurance: N/A Prescription Coverage: yes Preferred Pharmacy: [facility] in [place], [place]. Primary Care Provider: Carroll Garcia DO [phone] Patient/Caregiver Goals of Treatment: to go to acute Rehab Potential Needs for Transition of Care: Rehab/SNF: referrals made. Home Health: per mother, she is ok with Home Health if needed. 04/27 Per phone call with with Mom -she will not be taking him back . She is trying to get into assisted living herself. DME:denies use Dialysis: not in recent past Community Resources: denies Transportation: per ambulance. Anticipated Barriers to Discharge/Special Considerations: referral and bed at an acute Rehab Assessment: ASSESSMENT: Christy Ambrose is a 57 y.o. male w/ [...] continue with daily dressing changes. ?? PLAN: - Plan for return to OR today04/11 for washout, debridement, and partial closure - NPO for OR - Daily dressing change by Vascular Surgery - Appreciate transplant nephrology assistance as well as neurology in seizure management (EEG monitoring no longer needed); will follow up with Transplant Nephrology/[facility] today Plan: to go to acute rehab at discharge. A member of the Care Management team will continue to monitor progress, follow for continuity of care and assist with transition of care planning. North Leong RN Pager: [phone] * Care Management - North Leong RN - 04/12/2018 2:33 PM EDT Based on discussions with the multi-disciplinary healthcare team, the patient would benefit from acute inpatient rehab. level of care at discharge. ?? I have met with the patient/automotive sales representative to discuss discharge planning needs. I have provided the [facility], Office of Care Management letter from the [facility] pertaining to rehab referrals. I have also provided a letter describing our affiliations within the [facility] and educated them about their right to choose where referrals are placed. ?? I reviewed the different levels of rehab including SNF, swing, acute and LTAC with the patient/automotive sales representative. ?? The patient/automotive sales representative has been provided a list of facilities within their preferred geographic area. ?? I have requested that the patient/automotive sales representative provide at least three choices for referral. ?? The patient/automotive sales representative have requested referrals to: ?? 1. [facility] [place], [place] ?? 2. [facility] ?? [facility]. [facility] ?? Expected date of discharge: next 24-72 hours Note routed to [facility] who will communicate referrals to facilities and provide any required information. * Consult Note - Ashlie Willis [facility] - 04/12/2018 10:24 AM EDT Clinical Pharmacist Note - Renal Dose Adjustment for Antimicrobials Christy Ambrose (A# [id number]) is being treated with the following antimicrobial agent(s) which require dose adjustment based on current renal function: 1. Cefazolin 1g IV q12hr The indication for antimicrobial treatment is: skin/ skin structure Pharmacokinetic information: Height: Ht Readings from Last 1 Encounters: 04/06/18 178 cm (5' 10.08) Weight: Wt Readings from Last 1 Encounters: 04/06/18 91.6 kg (201 lb 15.1 oz) Body mass index is 28.91 kg/(m^2). Estimated Creatinine Clearance: 40 mL/min (based on Cr of 2.35). Recent Labs 04/12/18 0840 04/11/18 0555 04/10/18 0535 CREATININE 2.35* 2.33* 2.59* BUN 31* 33* 33* I/O Yesterday: 04/11 0701 - 04/12 0700 In: 795.2 [P.O.:300; I.V.:443.2] Out: 2375 [Urine:2375] Recommendations: Based on current renal function assessment, the following change(s) have been made to the patient'santimicrobial regimen: For CrCl >34 mL/min, dose cefazolin 1g IV q8hr We will continue to monitor the patient???s renal function and adjust antimicrobial dosing as needed. Please page the care area pharmacist with any questions you may have. Per P&T approved Renal Dose Adjustment Policy Ashlie Willis RPH * Plan of Care - Elina Jackson RN - 04/12/2018 4:43 AM EDT Problem: Patient Care Overview Goal: Plan of Care Review Outcome: Ongoing (Interventions Implemented as Appropriate) 04/12/18 0436 Coping/Psychosocial Plan Of Care Reviewed With patient Plan of Care Review Progress progress toward functional goals as expected OUTCOME EVALUATION NOTE: OUTCOME SUMMARY: Christy slept between care. RUE elevated when reminded. No c/o numbness/tingling. Neuro checks stable,pt disoriented to situation and occassionally to place; reorientation provided. [place] draining adequate UOP. No c/o pain. NPO since 0000. Tele note: S - Denies chest pain, SOB, MÉNDEZ, dizziness, nausea. O - VSS, see tele strips. A - Pt tolerating rate and rhythm. P - continue tele per MD order. PLAN MOVING FORWARD: NPO for OR to close LUE fasciotomies. Reorientation, side rails x4. Encourage mobility, IV abx, IS INDIVIDUALIZED FALL PREVENTION INTERVENTIONS: Patient-specific fall risk factors per assessment: [current deficits]: Confusion, IV access Assistance [level of assistance required for transfers and ambulation]: x2 assist Supervision [direct monitoring required during toileting and ADLs]: Hands on Surveillance [continuous indirect monitoring]: Purposeful rounding, call daniels within reach, bed alarm Patient-specific fall prevention interventions for sensory deficits provided, if applicable: Yes, bed alarm CPG GOAL OUTCOME EVALUATION: * Plan of Care - Negrita French RN - 04/11/2018 5:54 PM EDT Problem: Patient Care Overview Goal: Plan of Care Review Outcome: Ongoing (Interventions Implemented as Appropriate) 04/10/18 1602 04/11/18 1056 Coping/Psychosocial Plan Of Care Reviewed With -- patient Plan of Care Review Progress improving -- OUTCOME EVALUATION NOTE: OUTCOME SUMMARY: Pt had a good day, AO to place and self, VSS ex BP which was high and needed PRN BP medications for. C/o of pain given oxy prn for. Pt is confused and easily redirectable but can be impulsive at times. Bed alarm is set and x4 side rails were maintained per order. Pt did not go to OR today but the plan is to go tomorrow, so NPO at midnight. Pt on tele with no events. Peraza remains intact with adequate output, -BM PLAN MOVING FORWARD: Monitor for signs and symptoms of infection, bleeding and pain. Encourage IS INDIVIDUALIZED FALL PREVENTION INTERVENTIONS: Patient-specific fall risk factors per assessment: [current deficits]: IV tubing, recent surgery, generalized weakness, narcotic use, chronic condition, and impulsiveness. Assistance [level of assistance required for transfers and ambulation]: 2 assist with transfer, 1 assist with set up Supervision [direct monitoring required during toileting and ADLs]: Eyes on, bed alarm set Surveillance [continuous indirect monitoring]: Call daniels in reach, purposeful rounding, masimo, bedalarm set Patient-specific fall prevention interventions for sensory deficits provided, if applicable: [X] Yes Lighting adjusted for tasks, non-skid socks when out of bed CPG GOAL OUTCOME EVALUATION: Ongoing Goal: Individualization & Mutuality Outcome: Ongoing (Interventions Implemented as Appropriate) 04/08/18 1936 04/10/18 1602 Mutuality/Individual Preferences What Anxieties, Fears or Concerns Do You Have About Your Health or Care? JUAN PABLO -- What Questions Do You Have About Your Health or Care? JUAN PABLO -- What Information Would Help Us Give You More Personalized Care? JUAN PABLO -- Individualization Patient Specific Goals -- Walk with PT Patient Specific Interventions -- Reorient Goal: Fall Prevention-Safe Patient Handling Outcome: Ongoing (Interventions Implemented as Appropriate) 04/11/18 0000 04/11/18 0845 Daily Care Interventions Self-Care Promotion -- independence encouraged Toribio Fall Risk History of Falling -- 25 Secondary Diagnosis -- 15 Ambulatory Aids -- 0 Intravenous Therapy/Heparin/Saline Lock -- 20 Gait/Transferring -- 20 Mental Status -- 15 Score -- 95 OTHER Toribio Fall Risk -- High Restraint Interventions Safety Promotion/Fall Prevention -- activity supervised Positioning Body Position -- up in chair Activity Activity Type -- activity adjusted per tolerance Activity Assistance Provided -- assistance, 2 people Assistive Device Utilized oxygen -- Goal: Infection Control Outcome: Ongoing (Interventions Implemented as Appropriate) 04/11/18 0845 Safety Interventions Isolation Precautions standard precautions maintained Infection Prevention barrier precautions utilized Coping Strategies Supportive Measures active listening utilized Goal: Discharge Needs Assessment Outcome: Ongoing (Interventions Implemented as Appropriate) 04/08/18 1936 04/10/18 1602 Discharge Needs Assessment Concerns To Be Addressed -- care coordination/care conferences;cognitive/perceptual concerns;decision making concerns;home safety concerns Readmission Within The Last 30 Days -- no previous admission in last 30 days Equipment Needed After Discharge -- none Discharge Facility/Level Of Care Needs -- rehabilitation facility Current Discharge Risk dependent with mobility/activities of daily living -- Discharge Disposition -- still a patient Current Health Outpatient/Agency/Support Group Needs -- inpatient rehabilitation facility (specify) Anticipated Changes Related to Illness -- inability to work Activity/Self Care Review of Systems Equipment Currently Used at Home -- none Living Environment Transportation Available -- agency transportation;ambulance Goal: Interdisciplinary Rounds/Family Conf Outcome: Ongoing (Interventions Implemented as Appropriate) 04/11/18 1753 Interdisciplinary Rounds/Family Conf Participants nursing;occupational therapy;patient;physical therapy Problem: Seizure Disorder/Epilepsy (Adult) Goal: Signs and Symptoms of Listed Potential Problems Will be Absent, Minimized or Managed (SeizureDisorder/Epilepsy) Signs and symptoms of listed potential problems will be absent, minimized or managed by discharge/transition of care (reference Seizure Disorder/Epilepsy (Adult) CPG). Outcome: Ongoing (Interventions Implemented as Appropriate) 04/11/18 0845 Seizure Disorder/Epilepsy Problems Assessed (Seizure Disorder/Epilepsy) all Problems Present (Seizure Disorder/Epilepsy) none * Plan of Care - Rafaela Alonzo OT - 04/11/2018 1:22 PM EDT Occupational Therapy Evaluation Pertinent History of Current Problem: Christy Ambrose is a 57 y.o. 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 Precautions/Restrictions: fall, weight bearing Precautions Comments: LUE NWB; Hx of TBI Assessment: Pt has been seen for occupational therapy evaluation, please refer to associated flowsheet data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 Phase Results (Nis) safe swallow, no signs/symptoms of aspiration or penetration NIS Solid Trial Solid Food, Mode of Presentation (Nis) fed by clinician Solid Food, Volume Presented (mL) (Nis) patient controlled volumes Solid Food, Oral Phase Results (Nis) impaired oral phase, signs of dysfunction present Solid Food, Oral Transit Concerns (Nis) no bolus transit Solid Food, Oral Preparation Concerns (Nis) (Unable to bite through cracker. Bolus material removed. ) Solid Food, Pharyngeal Phase Results (Nis) other (see comments) (Not initiated. ) Plan of Care Review Plan Of Care Reviewed With patient (RN) Speech Language Pathology Goal Types FURNITURE [employer]ER Goal Types Dysphagia Goal (Group) Dysphagia Goal Dysphagia Goal, Date Established 04/08/18 Dysphagia Goal, Time to Achieve by discharge Oral Nutritional Level Goal safely tolerates/maintains adequate oral nutrition;no signs/symptoms ofaspiration present Clinical Impression FURNITURE [employer]KER Swallowing Diagnosis oral dysfunction;other (see comments) (Functionally appearing pharyngeal dysphagia. ) Rehab Potential/Prognosis, Swallowing good, to achieve stated therapy goals Therapy Frequency 2-3 times/wk FURNITURE [employer]ER Diet Recommendation puree;thin liquids * Plan of Care - Amy Blanco RN - 04/08/2018 6:40 AM EDT Mri obtained last evening. Vascular team paged and notified of completion and dysphasia and jerkinghead motions intermittently overnight. Neurology team was consulted yesterday and will follow up with mri results. Difficult to ascertain if patient is confused due to dysphasia. He is able to answeryes or no questions and per nonverbal pain scale is answers to having pain are consistent. Dilaudid 0.3mg given approximately every 6 hours for left arm pain. He also reports generalized sternal painwith coughing. He is unable to splint his own chest while coughing but demonstrates strong cough with ability to raise secretions with assist of splinting by nursing staff. Oxygen 2 liters nasal cannula applied during sleep. Oxygen saturation 86 to 89 percent at time of placement. Pt attempted to get oob independently x2. He was able to get legs out side of bed but was easily redirected to call for assist and did so when he was reminded and call light was in hand. Reports need to use the johnBedpan used but unable to have bm. * Consult Note - Raulito De Los Santos MD - 04/07/2018 3:04 PM EDT Neurology Admission History and Physical Patient name: Christy Ambrose Date of : 1960 PCP: Carroll Garcia, DO Onset of symptoms (if witnessed) or time of symptom discovery: 04/06 Last known well:04/06 Was IV tPA given greater than 60 minutes after time of hospital arrival: No CC: Question of ischemic brain injury sp PEA arrest HPI: Christy Ambrose is a 57 y.o. R handed M with hx mild cognitive impairment, eilepsy (stable on keppra), IGA nephropathy (s/p renal transplant in 2002, on tacrolimus and mycophenalate, complicated by delayed graft function and recurrent IG nephrectomy, prograft toxicity and L nephrectomy for papillary carcinoma), HTN who was found down at his home w/ bleeding from L AVF. He noted leaking from his AVF. EMS found the pt unresponsive in a pool of blood. Subsequently had PEA arrest at home. Sp ROSC w/several rounds of chest compressions and 1 dose epi. Intubated in field. Arrived at [facility] ED intubated. Received 6 units pRBC. Transferred to [facility] and went to OR with vascular for AVF exploration, fasciotomies, graft repair.?? Now extubated. SBP 130s-150s. Hb ranging 7-8. Has mild troponemia. CTH was obtained yest, showing concerning findings for cerebral Ischemia. Vascular neurology is consulted regarding these findings. Current Medications: Scheduled Meds: ??? levETIRAcetam 500 mg Oral Daily ??? levETIRAcetam 250 mg Oral Daily ??? [START ON 04/08/2018] levothyroxine 88 mcg Oral QAM ??? pantoprazole 20 mg Oral BID ??? allopurinol 150 mg Oral Daily ??? docusate sodium 100 mg Oral BID ??? metoprolol tartrate 25 mg Oral 2 times per day ??? ceFAZolin 2 g Intravenous Q8H ??? chlorhexidine 15 mL Oral BID ??? sodium chloride 0.9 % 5 mL Intravenous Q12H ??? acetaminophen 1,000 mg Oral Q8H EDWARD ??? tacrolimus 1 mg Oral BID ??? mycophenolate 250 mg Oral BID Continuous Infusions: ??? sodium chloride 0.9% 50 mL/hr (04/07/18 1329) PRN Meds:.HYDROmorphone, ondansetron, sodium chloride 0.9 %, lidocaine, hydrALAZINE, labetalol Past Medical & Surgical History: Past Medical [...] performed by Miguel Angel Moreno MD at [facility] OR ??? PRO DECOMPRESS FOREARM, BRACH ART EXPLOR Left 04/06/2018 FASCIOTOMY, FOREARM, WITH BRACHIAL ARTERY EXPLORATION (WRVU 8.41) performed by Lida Peter MDat [facility] OR ??? PRO DIRECT REPAIR RUPTURED ANEURYSM, AXILLO-BRACHIAL ARM INCIS Left 04/06/2018 @REPAIR, RUPTURED AXILLARY OR BRACHIAL ARTERY ANEURYSM BY ARM INCISION (WRVU *) performed by Lida Peter MD at [facility] OR ??? PRO EXC PAROTD, TOTAL, UNILAT RAD NECK Left 02/05/2016 @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, TOTAL, WITH UNILATERAL RADICAL NECK DISSECTION performed by Miguel Angel Moreno MD at [facility] OR ??? PRO EXC SKIN MALIG 3.1-4CM FACE, FACIAL Left 02/05/2016 EXC MALIGNANT LESION, 3.1 TO 4.0CM, FACE performed by Miguel Angel Moreno MD at [facility] OR ? ? PRO EXC SKIN MALIG >4CM TRUNK, ARM, LEG 04/19/2012 EXC MALIGNANT LESION, MICHAEL > 4.0CM, TRUNK performed by SABRINA MEDRANO at [facility] OR ??? PRO LAP, RADICAL NEPHRECTOMY Left 05/31/2017 @LAPAROSCOPY, RADICAL NEPHRECTOMY (WRVU 25.06) performed by Jax Mills MD at [facility] OR ??? PRO REBL VES GRAFT, UP EXTREM Left 04/06/2018 REPAIR BLOOD VESSEL WITH GRAFT OTHER THAN VEIN, UPPER EXTREMITY (WRVU 15.83) performed by Lida Peter MD at [facility] OR ??? PRO RELIEVE PRESSURE ON NERVE(S) Left 04/06/2018 (MSURG) CARPAL TUNNEL (WRVU 4.82) performed by Hay Sparks MD at [facility] OR ??? PRO REPAIR INTERMEDIATE S/A/T/E 2.6-7.5 CM 04/19/2012 REPAIR INTERMEDIATE WOUND, (NO HANDS OR FEET) 2.6 TO 7.5CM, UPPER EXTREMITY performed by SABRINA MEDRANO at [facility] OR ??? PRO REVISE MEDIAN N/CARPAL TUNNEL SURG Left 04/06/2018 MEDIAN NERVE DECOMPRESSION (CARPAL TUNNEL RELEASE) (WRVU 4.97) performed by L[facility] MD [facility] OR ? ? PRO SPLIT GRFT, HEAD, FAC, HAND, FEET <100SQCM N/A 02/20/2016 SPLIT THICKNESS SKIN SPLIT GRAFT,100SQ CM OR LESS, NECK performed by Miguel Angel Moreno MD at [facility] OR ??? PRO UPPER GI ENDOSCOPY, BIOPSY N/A 05/13/2017 EGD WITH BIOPSY (WRVU 2.49) performed by Aditya Barrera MD at [facility] ENDOSCOPY ??? PRO VASCULAR SURGERY PROCEDURE UNLIST Left 11/20/2015 LIGATION\REPAIR AV FISTULA performed by Camilo Ireland MD at [facility] OR ??? PRO VASCULAR SURGERY PROCEDURE UNLIST Left 11/20/2015 EXCISION VEIN FROM HAND performed by Camilo Ireland MD at [facility] OR ??? US RENAL TRANSPLANT BIOPSY 12/31/2010 Home Medications: No current facility-administered medications on file prior to encounter. Current Outpatient Prescriptions on File Prior to Encounter Medication Sig Dispense Refill ??? tacrolimus (PROGRAF) 1 mg Capsule Take 1 capsule twice daily. Kidney transplant 11/26/2002. ICD code Z94.0 60 capsule 5 ??? allopurinol (ZYLOPRIM) 100 mg Tablet Take 1 and 1/2 tablet daily. 45 tablet 11 ??? hydrALAZINE (APRESOLINE) 50 mg Tablet Take 1 tablet by mouth 2 times daily. 180 tablet 3 ??? metoprolol tartrate (LOPRESSOR) 50 mg Tablet Take half a pill 3 times a day (Patient taking differently: 50 mg 3 times daily.) 180 tablet 11 ??? levETIRAcetam (KEPPRA) 500 mg Tablet Take 1 pill in a.m. and half a pill in p.m. 45 tablet 11 ??? pantoprazole (PROTONIX) 20 mg Tablet, Delayed Release (E.C.) Take 1 tablet by mouth 2 times daily. 180 tablet 3 ??? sodium bicarbonate 650 mg Tablet Take 1 tablet by mouth 3 times daily. 270 tablet 3 ??? losartan (COZAAR) 25 mg Tablet Take 1 tablet by mouth every morning. 90 tablet 3 ??? acetaminophen (TYLENOL) 500 mg Tablet Take 2 tablets by mouth every 6 hours as needed for Pain.Do not exceed 4000 mg per 24 hours. ??? warfarin (COUMADIN) 5 mg Tablet Take 1 tablet (5 mg) by mouth daily. PLEASE RESTART THIS MEDICINE ON 06/07. GO FOR INR ON 06/08. FOLLOW UP WITH DR GARCIA'S OFFICE. ??? dilTIAZem (CARTIA XT) 120 mg Capsule, Sust. Release 24 hr Take 1 capsule by mouth daily. 90 capsule 3 ??? mycophenolate (CELLCEPT) 250 mg Capsule Take 1 capsule by mouth 2 times daily. Kidney Transplant Z94.0. Transplant Date; 11-26-02 180 capsule 11 ??? multivitamin Capsule Take 1 capsule by mouth daily. ??? levothyroxine (SYNTHROID) 88 mcg tablet Take 88 mcg by mouth daily. ??? cholecalciferol, Vitamin D3, 50,000 unit Capsule Take 1 capsule by mouth once a week. 12 capsule 3 ??? [DISCONTINUED] metroNIDAZOLE (METROCREAM) 0.75 % Cream Apply topically to face twice daily as needed. 45 g 0 ??? docusate sodium (COLACE) 100 mg Capsule Take 1 capsule by mouth 2 times daily as needed for Constipation. Allergy: Allergies Allergen Reactions ??? Benazepril Hcl ??? Codeine Other (See Comments) Patient does not know reaction ??? Hydrochlorothiazide ??? Pollen Extracts Sneezing/runny nose Family History: Family History Problem Relation Age of Onset ??? Pancreatitis Father Social History: Social History Social History ??? Marital status: Single Spouse name: N/A ??? Number of children: N/A ??? 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 Smoking status: Former Smoker Packs/day: 0.25 Years: 1.50 Types: Cigarettes Quit date: 12/03/2000 ??? Smokeless tobacco: Former User Quit date: 04/14/2001 ??? Alcohol use No ??? Drug use: No Comment: havent in ??? Sexual activity: Not on file Comment: Deferred Other Topics Concern ??? Not on file Social History Narrative Review of systems: Constitutional: No fevers or [...] systems otherwise negative Physical Exam: Vitals: Temp: [34.6 ??C (94.3 ??F)-36.9 ??C (98.4 ??F)] Heart Rate: [68-91] Resp: [10-21] BP: -- SpO2: [90 %-100 %] Heart Rate from SPO2: [68 bpm-91 bpm] Gen: NAD, mildly encephalopathic appearing Neck: Supple CV: + S1, S2 Resp: CTA B/L Abd: nondistended Ext: Left arm in bandage and splint Neuro Exam: MS: Alert to self, word findings difficulties, expressive aphasia, difficulty following complex commands CN: PERRL, EOMI, visual cohen unable to assess Facial sensation intact, no facial asymmetry Motor: Normal bulk Left arm not assessed UE: 5/5 R Arm abduction at shoulder 5/5 R Elbow extension 5/5 R, Elbow flexion 5/5 R Freezer Assistant LE: 5/5 R, 5/5 L Hip flexion 5/5 R, 5/5 L Knee extension 5/5 R, 5/5 L Knee flexion 5/5 R, 5/5 L Foot dorsiflexion 5/5 R, 5/5 L Foot plantar flexion Sensation: Intact to light touch throughout Reflexes: DTRs 2+ R, 2+ L Biceps 2+ R, 2+ L Brachioradialis 2+ R, 2+ L Triceps 1+ R, 1+ L Patellar 1+ R, 1+ L Achilles tendon Toes - R down, L down Coordination: pt unable to follow commands for finger to nose Gait: not assessed NIH Stroke Scale: (bold applicable choices) NIH [...] paradise-inattention to more than one modality TOTAL SCORE:2 Labs: Recent Results (from the past 24 hour(s)) BLOOD GAS 2 ARTERIAL Result Value Ref Range pH Art 7.18 (CRIT) 7.35 - 7.45 pCO2 Art 40 35 - 45 mmHg pO2 Art 228 (H) 85 - 104 mmHg HCO3 Art 14.8 (L) 20.0 - 26.0 mmol/L BE Art -13.5 (L) -3.0 - 3.0 mmol/L Hgb Blood Gas 9.4 (L) 13.7 - 16.5 gm/dL O2HB Art 98.3 (H) 94.0 - 97.0 % COHB Art 0.3 % METHB Art 0.3 <=1.5 % Na Whole Blood 141 135 - 145 mmol/L K Whole Blood 4.8 3.5 - 5.0 mmol/L ICa Whole Blood 1.12 (L) 1.15 - 1.33 mmol/L CL Whole Blood 120 (H) 98 - 107 mmol/L Gluc Whole Bld 125 65 - 199 mg/dL Lactate WB 2.8 (H) 0.5 - 2.2 mmol/L BLOOD GAS 2 ARTERIAL Result Value Ref Range pH Art 7.22 (CRIT) 7.35 - 7.45 pCO2 Art 39 35 - 45 mmHg pO2 Art 168 (H) 85 - 104 mmHg HCO3 Art 15.3 (L) 20.0 - 26.0 mmol/L BE Art -12.4 (L) -3.0 - 3.0 mmol/L Hgb Blood Gas 8.4 (L) 13.7 - 16.5 gm/dL O2HB Art 98.1 (H) 94.0 - 97.0 % COHB Art 0.2 % METHB Art 0.3 <=1.5 % Na Whole Blood 143 135 - 145 mmol/L K Whole Blood 4.6 3.5 - 5.0 mmol/L ICa Whole Blood 0.92 (CRIT) 1.15 - 1.33 mmol/L CL Whole Blood 119 (H) 98 - 107 mmol/L Gluc Whole Bld 158 65 - 199 mg/dL Lactate WB 3.2 (H) 0.5 - 2.2 mmol/L Prothrombin Time Result Value Ref Range PT 22.5 (H) 9.4 - 12.5 sec INR 2.0 APTT Result Value Ref Range PTT 30 25 - 37 sec Hemogram Result Value Ref Range WBC 10.3 (H) 4.0 - 9.5 x10(3)/mcL RBC 2.53 (L) 4.58 - 5.54 x10(6)/mcL Hemoglobin 7.7 (L) 13.7 - 16.5 gm/dL Hematocrit 23.2 (L) 40.5 - 48.5 % MCV 91.7 82.9 - 93.1 fL MCH 30.4 27.5 - 32.1 pg MCHC 33.2 32.0 - 35.7 gm/dL Platelets 96 (L) 145 - 357 x10(3)/mcL RDWSD 53.3 (H) 36.0 - 45.0 fL RDWCV 16.2 (H) 11.4 - 13.8 % MPV 9.0 7.6 - 12.9 fL nRBC % Auto 0.0 % nRBC Abs Auto 0.000 0.000 - 0.000 x10(3)/mcL Differential, Automated Result Value Ref Range Neutrophils % 80.4 % Neutr Abs (ANC) 8.28 (H) 1.70 - 6.10 x10(3)/mcL Lymphocytes % 6.8 % Lymphocytes Abs 0.7 (L) 0.9 - 3.2 x10(3)/mcL Monocytes % 11.9 % Monocyte Abs 1.2 (H) 0.3 - 0.9 x10(3)/mcL Eosinophils % 0.0 % Eosinophils Abs 0.0 0.0 - 0.4 x10(3)/mcL Basophils % 0.1 % Basophils Abs 0.0 0.0 - 0.1 x10(3)/mcL Immature Gran % 0.80 % Veronika Gran Abs 0.08 (H) 0.00 - 0.04 x10(3)/mcL Scan, Peripheral Blood Result Value Ref Range Plat Estimate Decreased RBC Morphology Abnormal Ovalocytes 1-5 /HPF Yovanny Cells 1-5 /HPF BLOOD GAS 2 ARTERIAL Result Value Ref Range pH Art 7.27 (CRIT) 7.35 - 7.45 pCO2 Art 34 (L) 35 - 45 mmHg pO2 Art 152 (H) 85 - 104 mmHg HCO3 Art 15.2 (L) 20.0 - 26.0 mmol/L BE Art -11.8 (L) -3.0 - 3.0 mmol/L Hgb Blood Gas 8.1 (L) 13.7 - 16.5 gm/dL O2HB Art 97.7 (H) 94.0 - 97.0 % COHB Art 0.5 % METHB Art 0.3 <=1.5 % Na Whole Blood 140 135 - 145 mmol/L K Whole Blood 4.6 3.5 - 5.0 mmol/L ICa Whole Blood 1.01 (L) 1.15 - 1.33 mmol/L CL Whole Blood 118 (H) 98 - 107 mmol/L Gluc Whole Bld 137 65 - 199 mg/dL Lactate WB 3.1 (H) 0.5 - 2.2 mmol/L POCT Glucose Result Value Ref Range POC Glucose 147 65 - 199 mg/dL BLOOD GAS 2 ARTERIAL Result Value Ref Range pH Art 7.29 (CRIT) 7.35 - 7.45 pCO2 Art 31 (L) 35 - 45 mmHg pO2 Art 65 (L) 85 - 104 mmHg HCO3 Art 15.2 (L) 20.0 - 26.0 mmol/L BE Art -11.8 (L) -3.0 - 3.0 mmol/L Hgb Blood Gas 8.4 (L) 13.7 - 16.5 gm/dL O2HB Art 93.0 (L) 94.0 - 97.0 % COHB Art 0.3 % METHB Art 0.9 <=1.5 % Na Whole Blood 140 135 - 145 mmol/L K Whole Blood 5.0 3.5 - 5.0 mmol/L ICa Whole Blood 1.03 (L) 1.15 - 1.33 mmol/L CL Whole Blood 119 (H) 98 - 107 mmol/L Gluc Whole Bld 141 65 - 199 mg/dL Lactate WB 2.4 (H) 0.5 - 2.2 mmol/L FIO2 Art 50 % PF Ratio Art 130 Temp Art 34.8 Celsius Prothrombin Time Result Value Ref Range PT 24.1 (H) 9.4 - 12.5 sec INR 2.2 APTT Result Value Ref Range PTT 30 25 - 37 sec CMP w/fasting Glucose Result Value Ref Range Glucose Fasting 140 (H) 65 - 99 mg/dL BUN 45 (H) 10 - 20 mg/dL Creatinine 2.48 (H) 0.80 - 1.50 mg/dL Sodium 145 135 - 145 mmol/L Potassium 5.2 (H) 3.5 - 5.0 mmol/L Chloride 118 (H) 98 - 107 mmol/L CO2 16 (L) 22 - 31 mmol/L Anion Gap 11 5 - 15 mmol/L Calcium 6.7 (CRIT) 8.5 - 10.5 mg/dL Total Protein 4.3 (L) 6.1 - 8.0 gm/dL Albumin 2.3 (L) 3.2 - 5.2 gm/dL AST 22 0 - 39 unit/L ALT 20 0 - 55 unit/L Alk Phos 57 40 - 120 unit/L Total Bilirubin 0.3 0.2 - 1.3 mg/dL eGFR 28 (L) >=60 mL/min/1.73 m?? eGFR 32 (L) >=60 mL/min/1.73 m?? Cardiac Enzymes (LEB/CGP) Result Value Ref Range Troponin-T 0.20 (H) 0.00 - 0.00 ng/mL CK, Total 249 (H) 0 - 200 unit/L Magnesium Result Value Ref Range Magnesium 0.60 (L) 0.69 - 1.07 mmol/L Phosphorus Result Value Ref Range Phosphorus 3.3 2.5 - 4.5 mg/dL Hemogram Result Value Ref Range WBC 8.6 4.0 - 9.5 x10(3)/mcL RBC 2.56 (L) 4.58 - 5.54 x10(6)/mcL Hemoglobin 7.8 (L) 13.7 - 16.5 gm/dL Hematocrit 23.1 (L) 40.5 - 48.5 % MCV 90.2 82.9 - 93.1 fL MCH 30.5 27.5 - 32.1 pg MCHC 33.8 32.0 - 35.7 gm/dL Platelets 95 (L) 145 - 357 x10(3)/mcL RDWSD 53.6 (H) 36.0 - 45.0 fL RDWCV 16.6 (H) 11.4 - 13.8 % MPV 9.5 7.6 - 12.9 fL nRBC % Auto 0.0 % nRBC Abs Auto 0.000 0.000 - 0.000 x10(3)/mcL Differential, Automated Result Value Ref Range Neutrophils % 85.6 % Neutr Abs (ANC) 7.32 (H) 1.70 - 6.10 x10(3)/mcL Lymphocytes % 4.8 % Lymphocytes Abs 0.4 (L) 0.9 - 3.2 x10(3)/mcL Monocytes % 9.1 % Monocyte Abs 0.8 0.3 - 0.9 x10(3)/mcL Eosinophils % 0.0 % Eosinophils Abs 0.0 0.0 - 0.4 x10(3)/mcL Basophils % 0.0 % Basophils Abs 0.0 0.0 - 0.1 x10(3)/mcL Immature Gran % 0.50 % Veronika Gran Abs 0.04 0.00 - 0.04 x10(3)/mcL POCT Glucose Result Value Ref Range POC Glucose 177 65 - 199 mg/dL Hemoglobin and Hematocrit, blood Result Value Ref Range Hemoglobin 7.9 (L) 13.7 - 16.5 gm/dL Hematocrit 23.1 (L) 40.5 - 48.5 % Basic Metabolic Panel (non-fasting) Result Value Ref Range Glucose Lvl 167 65 - 199 mg/dL BUN 48 (H) 10 - 20 mg/dL Creatinine 2.58 (H) 0.80 - 1.50 mg/dL Sodium 143 135 - 145 mmol/L Potassium 6.1 (CRIT) 3.5 - 5.0 mmol/L Chloride 117 (H) 98 - 107 mmol/L CO2 15 (L) 22 - 31 mmol/L Anion Gap 11 5 - 15 mmol/L Calcium 6.8 (CRIT) 8.5 - 10.5 mg/dL eGFR 27 (L) >=60 mL/min/1.73 m?? eGFR 31 (L) >=60 mL/min/1.73 m?? CK Result Value Ref Range CK, Total 608 (H) 0 - 200 unit/L Lactate, whole blood, send to lab (Leb/CGP) Result Value Ref Range Lactate WB 1.5 0.5 - 2.2 mmol/L POCT Glucose Result Value Ref Range POC Glucose 131 65 - 199 mg/dL Basic Metabolic Panel (non-fasting) Result Value Ref Range Glucose Lvl 124 65 - 199 mg/dL BUN 50 (H) 10 - 20 mg/dL Creatinine 2.68 (H) 0.80 - 1.50 mg/dL Sodium 143 135 - 145 mmol/L Potassium 5.4 (H) 3.5 - 5.0 mmol/L Chloride 116 (H) 98 - 107 mmol/L CO2 16 (L) 22 - 31 mmol/L Anion Gap 11 5 - 15 mmol/L Calcium 7.0 (L) 8.5 - 10.5 mg/dL eGFR 25 (L) >=60 mL/min/1.73 m?? eGFR 29 (L) >=60 mL/min/1.73 m?? Lactate, whole blood, send to lab (Leb/CGP) Result Value Ref Range Lactate WB 1.2 0.5 - 2.2 mmol/L Hemoglobin and Hematocrit, blood Result Value Ref Range Hemoglobin 7.2 (L) 13.7 - 16.5 gm/dL Hematocrit 21.2 (L) 40.5 - 48.5 % CK Result Value Ref Range CK, Total 699 (H) 0 - 200 unit/L Cardiac Enzymes (LEB/CGP) Result Value Ref Range Troponin-T 0.15 (H) 0.00 - 0.00 ng/mL CK, Total 700 (H) 0 - 200 unit/L POCT Glucose Result Value Ref Range POC Glucose 136 65 - 199 mg/dL Diagnostic Tests and Imaging: CTH CT HEAD: No acute intracranial abnormality. Question posttraumatic changes with encephalomalacic changes left anterior temporal lobe. Asymmetric low-attenuation periventricular white matter left greater than right and subtle evidence of volume loss in the left hemisphere raise the question of ischemic change on the left related to left-sided carotid disease. Clinical correlation recommended. Assessment and Plan: Christy Ambrose is a 57 y.o.F with h/o IgA nephropathy sp renal tx with complications, sp R nephrectomy who p/w PEA arrest after hemorrhage from L arm AVF, sp several rounds of CPR. Pt was brought to OSH intubated and sedated, underwent urgent OR course, now extubated and stabilized. Neurology is consulted regarding CTH findings concerning for ischemic brain injury. Exam currently notable for slow cognitive processing (baseline), intermittent aphasia that I do notsee recorded in previous neurological exams, and global mild encephalopathy. It is certainly possible he suffered an anoxic brain injury event in the setting of cerebral hypoperfusion from PEA arrest. Would recommend MRI brain non con for further characterization. Thrombolytics were considered and not given secondary to out of time window and diagnosis unclear . Recommendations - MRI brain non contrast Vascular neurology will see pt again after completion of MRI brain. Raulito De Los Santos MD 04/07/2018 Neurology resident, PGY-3 Vascular Neurology Pager [phone] Standard [facility] Swallow Screen: This screen is to be [...] diet as medical provider deems appropriate. Consider FURNITURE [employer]KER consult for full evaluation and diet recommendations. ??? If NO to any of the responses, stop immediately, keep patient NPO and notify physician. ??? Associated attestation - Tim Collins MD - 04/08/2018 3:03 PM EDT Neurology Staff Note I have reviewed the resident's history during the visit and I agree with the details as written. Myphysical examination confirms the resident's findings. The assessment and plan were formulated in discussion with me at the time of the visit and I agree with them as documented. I just saw him (14:55)and he was being connected to an EEG. Clinically he is having ongoing focal motor seizure activity with clonic activity of the left pec, SCM and sometime deltoid. His speech seems interrupted paroxysmally. MRI reviewed. Gave extra Keppra IV earlier (1245PM). We will add a second agent but speak with Nephr Transplant about this. I suspect he may have severe extra and intracranial vascular disease and would check a carotid ultrasound and eventually a head and neck MRA (without gadolinium). For now would be cautious about lowering the BP abruptly. Getting a 30min EEG now but will likely need to be put on monitoring if feasible later. 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 Apparently patient was found at his home unresponsive and was pulseless requiring several rounds of chest compressions,epinephrine and IV fluid bolus with a return of spontaneous circulation.Intubated in the field and taken to [facility] received 6 units of the PRBCs,2 FFPs for hemoglobin of 4 and required 2 tourniquets for his AV fistula leaking. Transferred to [facility] and was taken to OR by vascular surgery for AV fistula exploration and fasciotomies,graft repair. Was a coagulopathic with INRof 2.6 and received 4 units of the FFPs and also hyperkalemic with a potassium of 6.1 for which he received insulin and dextrose in OR.Required pressor support for a short period of time.Hgb was 11.5at the time of admission and then trending down to <8 now. She was last seen by in the transplant clinic in September 2017 and his creatinine was 2.67 at that time with his baseline creatinine between 2.1-2.6. Nephrology transplant team is consulted for assist in management of post transplant CKD patient andimmunosuppression therapy. Patient is extubated, still with a cervical collar. Alert and awake. Comfortably lying on the bed. Having difficulty in word finding to answer questions.Unable to recall what braught him to hospital. Past Medical History: Diagnosis Date ??? BP [...] performed by Miguel Angel Moreno MD at [facility] MAIN OR ??? PRO EXC PAROTD, TOTAL, UNILAT RAD NECK Left 02/05/2016 @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, TOTAL, WITH UNILATERAL RADICAL NECK DISSECTION performed by Miguel Angel Moreno MD at [facility] MAIN OR ??? PRO EXC SKIN MALIG 3.1-4CM FACE, FACIAL Left 02/05/2016 EXC MALIGNANT LESION, 3.1 TO 4.0CM, FACE performed by Miguel Angel Moreno MD at [facility] MAIN OR ? ? PRO EXC SKIN MALIG >4CM TRUNK, ARM, LEG 04/19/2012 EXC MALIGNANT LESION, MICHAEL > 4.0CM, TRUNK performed by SABRINA MEDRANO at [facility] MAIN OR ??? PRO LAP, RADICAL NEPHRECTOMY Left 05/31/2017 @LAPAROSCOPY, RADICAL NEPHRECTOMY (WRVU 25.06) performed by Jax Mills MD at [facility] MAIN OR ??? PRO REPAIR INTERMEDIATE S/A/T/E 2.6-7.5 CM 04/19/2012 REPAIR INTERMEDIATE WOUND, (NO HANDS OR FEET) 2.6 TO 7.5CM, UPPER EXTREMITY performed by SABRINA MEDRANO at [facility] MAIN OR ? ? PRO SPLIT GRFT, HEAD, FAC, HAND, FEET <100SQCM N/A 02/20/2016 SPLIT THICKNESS SKIN SPLIT GRAFT,100SQ CM OR LESS, NECK performed by Miguel Angel Moreno MD at [facility] MAIN OR ??? PRO UPPER GI ENDOSCOPY, BIOPSY N/A 05/13/2017 EGD WITH BIOPSY (WRVU 2.49) performed by Aditya Barrera MD at [facility] ENDOSCOPY ??? PRO VASCULAR SURGERY PROCEDURE UNLIST Left 11/20/2015 LIGATION\REPAIR AV FISTULA performed by Camilo Ireland MD at [facility] MAIN OR ??? PRO VASCULAR SURGERY PROCEDURE UNLIST Left 11/20/2015 EXCISION VEIN FROM HAND performed by Camilo Ireland MD at [facility] MAIN OR ??? US RENAL TRANSPLANT BIOPSY 12/31/2010 Family History Problem Relation Age of Onset ??? Pancreatitis Father Social History Narrative None on file No alcohol/tobacco/illicit drug use MEDICATIONS: ??? levETIRAcetam 500 mg Oral Daily ??? levETIRAcetam 250 mg Oral Daily ??? [START ON 04/08/2018] levothyroxine 88 mcg Oral QAM ??? pantoprazole 20 mg Oral BID ??? allopurinol 150 mg Oral Daily ??? docusate sodium 100 mg Oral BID ??? metoprolol tartrate 25 mg Oral 2 times per day ??? ceFAZolin 2 g Intravenous Q8H ??? chlorhexidine 15 mL Oral BID ??? sodium chloride 0.9 % 5 mL Intravenous Q12H ??? acetaminophen 1,000 mg Oral Q8H EDWARD ??? tacrolimus 1 mg Oral BID ??? mycophenolate 250 mg Oral BID Allergies Allergen Reactions ??? Benazepril Hcl ??? Codeine Other (See Comments) Patient does not know reaction ??? Hydrochlorothiazide ??? Pollen Extracts Sneezing/runny nose ROS: Limited due to his acute encephalopathy with underlying TBI PHYSICAL EXAM: Last value Range last 24 hrs Temperature Temp: 36.8 ??C (98.2 ??F) Temp: [34.6 ??C (94.3 ??F)-36.9 ??C (98.4 ??F)] Heart Rate Heart Rate: 91 Heart Rate: [55-91] Blood Pressure BP: 102/73 BP: (102-130)/(73-102) Respiratory Rate Resp: 18 Resp: [10-21] SpO2 SpO2: 90 % SpO2: [90 %-100 %] Appearance - Alert, Comfortable.with neck collar Skin - No exanthem. HEENT - Sclera white. Mucous membranes moist. Chest:. Lungs clear to ausculatation w/o wheezes/ rhonchi/ crackles. Heart - S1 and S2 clear w/o murmur, gallop, or rub. JVP not elevated. Abd - Soft. + BS. No bruit. Non tender. Ext -Left UE AVF site with dressing and also with GIANNI Wrap.Lower extremities no edema, no cyanosis.Peripheral pulses felt bilaterally and equal. Neuro - Alert ,awake and following commands STUDIES: Labs: CBC: Recent Labs 04/07/18 0555 04/07/18 0015 04/06/18 1740 04/06/18 1553 04/06/18 1315 WBC -- -- 8.6 10.3* 15.5* HGB 7.2* 7.9* 7.8* 7.7* 11.5* PLATELET -- -- 95* 96* 145 Chemistry: Recent Labs 04/07/18 0430 04/07/18 0015 04/06/18 1740 04/06/18 1315 NA 143 143 145 140 K 5.4* 6.1* 5.2* 5.2* CL 116* 117* 118* 116* CO2 16* 15* 16* 15* BUN 50* 48* 45* 39* CREATININE 2.68* 2.58* 2.48* 2.01* GLUCOSE 124 167 -- 219* Recent Labs 04/07/18 0430 04/07/18 0015 04/06/18 1740 09/23/17 1101 06/28/17 0859 CALCIUM 7.0* 6.8* 6.7* < > 8.4* 8.4* MAGNESIUM -- -- 0.60* -- 0.76 0.82 PHOS -- -- 3.3 -- 3.9 4.4 < > = values in this interval not displayed. LFT's: Recent Labs 04/06/18 1740 09/23/17 1101 06/28/17 0859 BILITOT 0.3 0.4 0.3 ALBUMIN 2.3* 4.3 4.2 ALKPHOS 57 104 116 ALT 20 11 11 AST 22 23 19 Results for CHRISTY AMBROSE ( ) as of 04/07/2018 08:37 Ref. Range 04/06/2018 13:25 Color UA Latest Ref Range: Yellow Yellow Appearance UA Latest Ref Range: Clear Hazy (A) Spec Snow Shoe UA Latest Ref Range: 1.002 - 1.030 1.023 pH UA Latest Ref Range: 5.0 - 8.0 6.0 Protein UA Latest Ref Range: Negative mg/dL >=500 (A) Glucose UA Latest Ref Range: Negative mg/dL 50 (A) Ketones UA Latest Ref Range: Negative mg/dL Negative Bilirubin UA Latest Ref Range: Negative mg/dL Negative Urobilinogen UA Latest Ref Range: Normal mg/dL Normal Blood UA Latest Ref Range: Negative mg/dL Small (A) Leukocytes UA Latest Ref Range: Negative mcL Negative Nitrite UA Latest Ref Range: Negative Negative WBC UA Latest Ref Range: 0 - 3 /HPF 8 (H) RBC UA Latest Ref Range: 0 - 3 /HPF 21 (H) Gran Cast UA Latest Ref Range: <=0 /LPF 1 (H) Bacteria UA Latest Ref Range: None /HPF Occasional (A) Squam Epith UA Latest Ref Range: <=4 /HPF 1 Culture Reflexed Unknown No CXray 04/06/18: IMPRESSION Prominence of the superior mediastinum may be due to technique. The presence of a mediastinal hematoma is not excluded with this study. Opacity in the medial right lung base may be due to atelectasis, pneumonia, aspiration or contusion. There is contrast material in the bladder suggesting that this patient may have had a prior CT scan today. Intake/Output Summary (Last 24 hours) at 04/07/18 0851 Last data filed at 04/07/18 0800 Gross per 24 hour Intake 7448 ml Output 2450 ml Net 4998 ml Procedure:04/06/18 -Exploration of LUE AVF, repair of AVF, brachial artery patch angioplasty -Axillary venous phlebotomy -Forearm and hand fasciotomies Left KIdneySpecimen pathology:05/31 ?Specimen: ??Left radicalKidney ?Tumor ?Histologic Type: ?? 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 Histologic Type Comments: ?? Overlapping features of both Type 1 and Type 2 ?papillary RCC are present. (See Discussion) ?Histologic Grade (WHO / ISUP Grade): ?G3 ?Tumor Size: ?? 4.9 Centimeters (cm) ?Tumor Focality: ?? Multifocal ?Tumor Extent ? Anatomic Extent of Tumor: ?? Tumor limited to kidney ?Accessory Tumor Findings ? Sarcomatoid Features: ?? Not identified ? Rhabdoid Features: ?? Not identified ? Tumor Necrosis: ?? Not identified ? Lymphovascular Invasion: ?? Not identified ?Margins: ??Uninvolved by invasive carcinoma Lymph Nodes ?Regional Lymph Nodes: ?? 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 -Creatinine has trended down at the beginning to 2.0 secondary to his blood transfusions and is nowaround 2.5-2.6 which is almost near his baseline.His creatinine may trend up in the setting of ATN form his poor renal perfusion form hemorrhagic shock.Having good urine out put .Given 20 mg Iv lasixtrial 04/06/18 -Had good U.out put about 1300 cc yesterday and has been making about 50 ccc/hr from this morning,remaining non oliuric -His TRISTIAN on CKD is secondary to prerenal etiology from renal hypoperfusion secondary to sever anemia from AVF bleeding and also cardiac arrest -Has elevated Potassium level of 5.4 and metabolic acidosis with Bicarb of 16. -Recommended to change IVF from LR to NS /0.45NS and if persistent hyperkalemia consider kayexalateif no contraindications -Hypocalcemia -Corrected calcium is still low.Recommended to give IV calcium gluconate as needed -Give IVFto keep net fluid balance even -transfuse prn to keep hgb >7-8. -Had UPC of 1.5 in 09/26. -Avoid any nephrotoxins -Strict intake and out put monitoring -Daily weights -Renal dosing for medications Immuno suppression: Continue prograf 1mg PO BID-Check trough levels (30min before the dose).Last Prograf level was 5.5 in september 2017. If need to change fromPO to IV prograf the dose has to be 1/3 rd of PO dose and has to be given over a period of 20 hrs,off for 4 hrs Daily.Check trough levels 30 min-1hr prior to next dose Conitnue Cellcept 250 mg PO BID.If can not take PO,can change to 250 mg IV BID #2.Hyperkalemia-Recommended to change LR to NS or 1/2 NS for maintenance IVF as LR has more K.Monitor BMP. #3.Non AGAP Metabolic Acidosis:Lactic acidosis improved.Was on sodium bicarb Po 650 TID at home forhis chronic metabolic acidosis form his renal failure.Recommended to change maintananace IVF to 1/2NS with 75 Meq of bicarb(1.5 amps) and resume PO bicarb home dose once he can take PO .Monitor BMP.Can give IV bicarb as needed. #4.Hypertension:Was on hydralazine 50 mg BID,diltiazem 120 mg XT daily ,metorpolol 50 mg TID,losartan 25 mg daily at home.Hold losartan for now until K levels better.Can slowly resume his BP meds as tolerated #5.Ruptured Left UE AVF and compartment syndrome of L Forearm: s/p exploration,brachial artery patch angioplasty,forearm and hand fasciotomies on 04/06/18.Vascular planning for debridement and possible closure #6.Metabolic encephalopathy with underlying TBI: Per discussion with ,who knows him for long time,he has more expressive aphasia and struggling to find words to answer questions.This could be from possible anoxic brain injury from his PEA cardiac arrest.Needs further investigation and possibly would benefit from neurology evaluation.CT head per report no acute intracranial abnormality,underlying left Temporal lobe post traumatic encephalomalacic changes. Thanks for letting us participate in the care of this patient. Call with questions. Seen and Discussed w/ Dr.Chobanian Radha Hughes MD Nephrology Fellow #[id number] * Op Note - Bhargavi Junior MD - 04/07/2018 7:56 AM EDT [facility] Operative Note Patient Name: Christy Ambrose : [id number] MR#: [id number] Case Date: 04/06/2018 Surgeon: Surgeon(s) and Role: Panel 1: * Lida Peter MD - Primary * Bhargavi Junior MD - Fellow * Kurt Mullins MD - *ASSISTING SURGEON * Crystal Starr MD - Fellow Panel 2: * Hay Sparks MD - Primary * Camden Sol MD - Resident-Surgeon Huber Preoperative diagnosis: bleeding AVF Left upper extremity ?? Postoperative diagnosis: bleeding AVF Left upper extremity Procedure: -Exploration of LUE AVF, repair of AVF, brachial artery patch angioplasty -Axillary venous phlebotomy -Forearm and hand fasciotomies Procedure(s) (LRB): @REPAIR, RUPTURED AXILLARY OR BRACHIAL ARTERY ANEURYSM BY ARM INCISION (WRVU *) (Left) (MSURG) CARPAL TUNNEL (WRVU 4.82) (Left) FASCIOTOMY, FOREARM, WITH BRACHIAL ARTERY EXPLORATION (WRVU 8.41) (Left) MEDIAN NERVE DECOMPRESSION (CARPAL TUNNEL RELEASE) (WRVU 4.97) (Left) REPAIR BLOOD VESSEL WITH GRAFT OTHER THAN VEIN, UPPER EXTREMITY (WRVU 15.83) (Left) Anesthesia: General Estimated Blood Loss: 1000 mL Specimens removed during surgery: None, Wound culture sent Drains: none Surgical Closure: Other Than Primary Closure - deep and superficial layers are left completely openduring original surgery Disposition: taken directly to the ICU, intubated and in a critical condition. Condition: Critical condition, requiring continue resuscitation (Please see the Surgical Encounter Summary for any Implant and Specimen details pertinent to this patient.) HPI/Surgical Indications: Christy Ambrose is a 57 y.o. male with PMH of HTN, TBI w/ epilepsy, s/p donor renal transplant 2002 (on tacrolimus and cellcept). Per report from family he has been suffering from LUE edema, and dilation of his AVF and on coumadin for presumed upper extremity thrombosis. On the day of admission pt was found down in his home with massive hemorrhage from his LUE AVF. Per EMS the patient had a severe amount of blood loss in the bathroom and bedroom that resulted inPEA cardiac arrest at the scene. ??He received epinephrine, 2.5 L of normal saline with ROSC obtained. ??At OSH pt received 6 units of blood, intubated, Gonzalez scanned given that he was found down. He presented to [facility] in hemorrhagic shock with 2 tourniquets on since 9:49AM. Pt was taken to OR with vascular emergently for LUE exploration and control of hemorrhage. Procedure Description: Informed consent was waived given the emergent nature. Pt was brought back to the operating room and placed supine on the OR table. General anesthesia was induced.. Pt had a left tibial IO, and additional access was obtained while we simultaneously prepped and draped in standard sterile fashion. Preoperative antibiotics were given. A timeout was performed. Attention was then turned to the patient's left upper extremity. On initial exam, pt had a 1cm hole in his AVF at the antecubital fossa. We expressed numerous clots, and then made an oblique incision over the AVF. At this point we encountered an obliterated vesselwall, filled with necrotic tissue and debris. The incision was extended cephalad over the brachial artery, and we dissected through relatively healthy tissue down to the brachial artery, and encircled it with vessel loops. We extended the incision in a curvilinear fashion toward the wrist. Distal to the obliterated fistula we dissected down to the radial and ulnar arteries and encircled them withvessel loops. We then made an incision over the axillary artery, and dissected down to the axillaryvein and encircled it with vessel loops. The brachial, ulnar and radial arteries were clamped, tourniquets released. A 2cm venotomy was made in the axillary vein and 400cc of blood was drained from the arm. The venotomy was repaired with interrupted 6-0 proline sutures. We then placed a Nicole in the brachial artery proximally and in the ulnar artery distally to perfuse the arm as we continued with debridement. The brachial artery was debrided down to healthy edges,and patch angioplasty was performed with .8x8cm bovine pericardial patch and 5-0 prolines. Prior to completing the patch, the artery was flushed and irrigated with heparinized saline solution. We then turned our attention to forearm fasciotomy. Subcutaneous flaps were raised medial and lateral with electrocautery. Small veins were ligated with 3-0 silk for hemostasis. The extensor and flexor compartment fascia were released, and the muscle appeared viable. The median nerve was identifiedand protected. We then requested an intraoperative plastic surgery consult for hand fasciotomy. (Please see plastic surgery note for details). Once satisfied with hemostasis, tissue overlying the patch angioplasty was secured with 2-0 vicryl suture. The axillary incision was closed with interrupted3-0 vicryl, running 4-0 Monocryl, and Dermabond. The arm was cleansed, and dressed with damp kerlix, ABD pads, kerlix and GIANNI bandage. All counts were reported to be correct. Dr. Peter was present and scrubbed for the entire procedure. ?? Implant Name Type Inv. Item Serial No. Match Maker Lot No. LRB No. Used Action PATCH,BIOL,XENOSURE,.8X8CM ([id number]) - [id number] IMPLANTS PATCH,BIOL,XENOSURE,.8X8CM ([id number]) 0 [facility] [id number] Implanted Infection Bundle used? No, ancef given Attestation: Case Date: 04/06/2018 Bhargavi Junior MD 04/07/2018 Associated attestation - Lida Peter MD - 04/08/2018 3:17 PM EDT Attestation: Case Date: 04/06/2018 I was present and I participated during the entire procedure (does not need to include opening and closing). Lida Peter MD 04/08/2018 * Brief Op Note - Bhargavi Junior MD - 04/06/2018 5:37 PM EDT Brief Operative Note Patient Name: Christy Ambrose : [id number] MR#: [id number] Case Date: 04/06/2018 Surgeon: Surgeon(s) and Role: Panel 1: * Lida Peter MD - Primary * Bhargavi Junior MD - Fellow * Kurt Mullins MD - *ASSISTING SURGEON * Crystal Starr MD - Fellow Panel 2: * Hay Sparks MD - Primary Preoperative diagnosis: bleeding AVF Left upper extremity Postoperative diagnosis: bleeding AVF Left upper extremity Procedure: -Exploration of LUE AVF, repair of AVF, brachial artery patch angioplasty -Axillary venous phlebotomy -Forearm and hand fasciotomies Procedure(s) (LRB): @REPAIR, RUPTURED AXILLARY OR BRACHIAL ARTERY ANEURYSM BY ARM INCISION (WRVU *) (Left) (MSURG) CARPAL TUNNEL (WRVU 4.82) (Left) FASCIOTOMY, FOREARM, WITH BRACHIAL ARTERY EXPLORATION (WRVU 8.41) (Left) MEDIAN NERVE DECOMPRESSION (CARPAL TUNNEL RELEASE) (WRVU 4.97) (Left) REPAIR BLOOD VESSEL WITH GRAFT OTHER THAN VEIN, UPPER EXTREMITY (WRVU 15.83) (Left) Anesthesia: General Findings: ruptured upper extremity AVF Complications: none immediate Intake: Crystalloid 5200cc 4U FFP Output: Estimated Blood Loss: 1000 mL Urine Output:: 200cc Other Output: (no other output recorded) Drains: none Specimens removed during surgery: Culture was sent Disposition: taken directly to the ICU, intubated and in a critical condition. Condition: Critical condition Attestation: Case Date: 04/06/2018 (Please see the Surgical Encounter Summary for any Implant and Specimen details pertinent to this patient.) * Op Note - Hay Sparks MD - 04/06/2018 4:00 PM EDT [facility] Operative Note Patient Name: Christy Ambrose : [id number] MR#: [id number] Case Date: 04/06/2018 Surgeon: Surgeon(s) and Role: Panel 1: * Lida Peter MD - Primary * Bhargavi Junior MD - Fellow * Kurt Mullins MD - *ASSISTING SURGEON * Crystal Starr MD - Fellow Panel 2: * Hay Sparks MD - Primary * Camden Sol MD - Resident-Surgeon Huber Preoperative diagnosis: bleeding AVF Postoperative diagnosis: bleeding AVF Procedure(s) (LRB): @REPAIR, RUPTURED AXILLARY OR BRACHIAL ARTERY ANEURYSM BY ARM INCISION (WRVU *) (Left) (MSURG) CARPAL TUNNEL (WRVU 4.82) (Left) FASCIOTOMY, FOREARM, WITH BRACHIAL ARTERY EXPLORATION (WRVU 8.41) (Left) MEDIAN NERVE DECOMPRESSION (CARPAL TUNNEL RELEASE) (WRVU 4.97) (Left) REPAIR BLOOD VESSEL WITH GRAFT OTHER THAN VEIN, UPPER EXTREMITY (WRVU 15.83) (Left) Anesthesia: General Estimated Blood Loss: 1000 mL Specimens removed during surgery: None Drains: Surgical Closure: wounds left open Disposition: a stable condition Condition: stable (Please see the Surgical Encounter Summary for any Implant and Specimen details pertinent to this patient.) HPI/Surgical Indications/Procedure Description: There is a 57-year-old male who had a rupture of his brachial artery that was repaired by vascular service on emergent basis after being found down. I was asked to assist in the operating room intraoperatively emergently. There was no family availableto address surgical consent. This point time the vascular team wanted to perform forearm fasciotomybut were concerned about spreading incision to the level of the carpal tunnel as well. At this point time I was asked to assist in carpal tunnel release. A timeout was performed my portion of the operation. At this point time the anatomical landmarks were identified the distal flexion crease was joseph ntified the palmaris longus was identified easily and the open wound of the forearm. Dissection proceeded just on the ulnar aspect of the palmaris longus and the forearm directly on top of the mediannerve. Median nerve was followed staying on the ulnar aspect of the median nerve following it down to and identifying the transverse carpal ligament. The ligament was then divided under direct visualization staying directly on top and visualizing. This dissection was taken all the way down to the distal aspect of the transverse carpal ligament visualizing the very distal aspect of the ligament and in the last release of the ligament. There is no further pressure on the nerve. The hand was carefully inspected and after discussion with the vascular team there did not appear to be no need for posterior release of the hand compartments there was minimal edema dorsally. This point time the operation was turned back towards the vascular team Infection Bundle used? No Attestation: Case Date: 04/06/2018 I performed this procedure without the involvement of a resident. HAY SPARKS MD 04/13/2018 documented in this encounter Plan of Treatment Pending Results Name Type Priority Associated Diagnoses Date /Time Transfuse RBC Blood Bank Routine 04/08/2018 11:30 AM EDT Transfuse thawed plasma Blood Bank Routine 04/09/2018 1:52 PM EDT Scheduled Referrals Name Type Priority Associated Diagnoses Order Schedule OPAT: Order / Recommendation for Post Discharge IV Antibiotic Management Outpatient Referral Routine Wound infection Mycotic aneurysm Ordered: 04/27/2018 documented as of this encounter Procedures Procedure Name Priority Date/Time Associated Diagnosis Comments BASIC METABOLIC PANEL Routine 05/04/2018 3:00 AM EDT VANCOMYCIN, TROUGH Timed 05/03/2018 6: 40 PM EDT HEMOGRAM Routine 05/03/2018 3:06 AM EDT DIFFERENTIAL, AUTOMATED Routine 05/03/2018 3:06 AM EDT CBC (WITH DIFF) Routine 05/03/2018 3:06 AM EDT BASIC METABOLIC PANEL Routine 05/03/2018 3:06 AM EDT HEMOGRAM Routine 05/02/2018 3:20 AM EDT DIFFERENTIAL, AUTOMATED Routine 05/02/2018 3:20 AM EDT CBC (WITH DIFF) Routine 05/02/2018 3:20 AM EDT BASIC METABOLIC PANEL Routine 05/02/2018 3:20 AM EDT HEMOGRAM Routine 05/01/2018 4:00 AM EDT DIFFERENTIAL, AUTOMATED Routine 05/01/2018 4:00 AM EDT CBC (WITH DIFF) Routine 05/01/2018 4:00 AM EDT BASIC METABOLIC PANEL Routine 05/01/2018 4:00 AM EDT VANCOMYCIN, TROUGH Timed 04/30/2018 7: 05 PM EDT HEMOGRAM Routine 04/30/2018 2:55 AM EDT DIFFERENTIAL, AUTOMATED Routine 04/30/2018 2:55 AM EDT CBC (WITH DIFF) Routine 04/30/2018 2:55 AM EDT BASIC METABOLIC PANEL Routine 04/30/2018 2:55 AM EDT VANCOMYCIN, TROUGH Timed 04/29/2018 5: 15 PM EDT VANCOMYCIN, TROUGH Timed 04/29/2018 6: 55 AM EDT HEMOGRAM Routine 04/29/2018 5:40 AM EDT DIFFERENTIAL, AUTOMATED Routine 04/29/2018 5:40 AM EDT CBC (WITH DIFF) Routine 04/29/2018 5:40 AM EDT BASIC METABOLIC PANEL Routine 04/29/2018 5:40 AM EDT VANCOMYCIN, TROUGH Timed 04/28/2018 1: 09 PM EDT EKG 12-LEAD STAT 04/28/2018 7:17 AM EDT Chest pain, unspecified type H/O kidney transplant HEMOGRAM Routine 04/28/2018 4:40 AM EDT DIFFERENTIAL, AUTOMATED Routine 04/28/2018 4:40 AM EDT CBC (WITH DIFF) Routine 04/28/2018 4:40 AM EDT BASIC METABOLIC PANEL Routine 04/28/2018 4:40 AM EDT VANCOMYCIN, TROUGH Timed 04/27/2018 1: 30 PM EDT XR PICC PLACEMENT OVER 5 YEARS (IV TEAM) Routine 04/27/2018 10:16 AM EDT HEMOGRAM Routine 04/27/2018 4:43 AM EDT DIFFERENTIAL, AUTOMATED Routine 04/27/2018 4:43 AM EDT CBC (WITH DIFF) Routine 04/27/2018 4:43 AM EDT BASIC METABOLIC PANEL Routine 04/27/2018 4:43 AM EDT HEMOGRAM Routine 04/26/2018 3:09 PM EDT VANCOMYCIN, TROUGH Timed 04/26/2018 2: 15 PM EDT EA.ADDITIONAL 100SQ.CM STSG Routine 04/26/2018 12:30 PM EDT ABORH RECHECK STATUS STAT 04/26/2018 11:42 AM EDT ABO/RH TYPING STAT 04/26/2018 11:42 AM EDT ANTIBODY SCREEN STAT 04/26/2018 11:42 AM EDT TYPE AND SCREEN ([facility]/CGP/GAVIN) STAT 04/26/2018 11:42 AM EDT MODIFIER WOUND VAC 04/26/2018 11 :35 AM EDT wound of arm EA.ADDITIONAL 100SQ.CM STSG (WRVU 1.72) 04/26/2018 11:35 AM EDT wound of arm SPLIT THICK SKIN GRAFT,100 SQ CM OR LESS, ARMS (WRVU 9.9) 04/26/2018 11:35 AM EDT wound of arm HEMOGRAM Routine 04/26/2018 4:39 AM EDT DIFFERENTIAL, AUTOMATED Routine 04/26/2018 4:39 AM EDT CBC (WITH DIFF) Routine 04/26/2018 4:39 AM EDT BASIC METABOLIC PANEL Routine 04/26/2018 4:39 AM EDT ECG SCAN 04/26/2018 12:00 AM EDT HEMOGRAM Routine 04/25/2018 5:18 AM EDT DIFFERENTIAL, AUTOMATED Routine 04/25/2018 5:18 AM EDT CBC (WITH DIFF) Routine 04/25/2018 5:18 AM EDT BASIC METABOLIC PANEL Routine 04/25/2018 5:18 AM EDT HEMOGRAM Routine 04/24/2018 4:17 AM EDT DIFFERENTIAL, AUTOMATED Routine 04/24/2018 4:17 AM EDT CBC (WITH DIFF) Routine 04/24/2018 4:17 AM EDT BASIC METABOLIC PANEL Routine 04/24/2018 4:17 AM EDT HEMOGRAM Routine 04/23/2018 4:56 AM EDT DIFFERENTIAL, AUTOMATED Routine 04/23/2018 4:56 AM EDT CBC (WITH DIFF) Routine 04/23/2018 4:56 AM EDT BASIC METABOLIC PANEL Routine 04/23/2018 4:56 AM EDT SPLIT THICK SKIN GRAFT,100 SQ CM OR LESS, ARMS Routine 04/22/2018 4:09 PM EDT HEMOGRAM Routine 04/22/2018 5:34 AM EDT DIFFERENTIAL, AUTOMATED Routine 04/22/2018 5:34 AM EDT CBC (WITH DIFF) Routine 04/22/2018 5:34 AM EDT BASIC METABOLIC PANEL Routine 04/22/2018 5:34 AM EDT BLOOD CULTURE STAT 04/21/2018 6:05 AM EDT HEMOGRAM Routine 04/21/2018 5:50 AM EDT DIFFERENTIAL, AUTOMATED Routine 04/21/2018 5:50 AM EDT BLOOD CULTURE STAT 04/21/2018 5:50 AM EDT CBC (WITH DIFF) Routine 04/21/2018 5:50 AM EDT BASIC METABOLIC PANEL Routine 04/21/2018 5:50 AM EDT HEMOGRAM Routine 04/20/2018 5:48 AM EDT DIFFERENTIAL, AUTOMATED Routine 04/20/2018 5:48 AM EDT APTT Routine 04/20/2018 5:48 AM EDT PROTHROMBIN TIME Routine 04/20/2018 5:48 AM EDT CBC (WITH DIFF) Routine 04/20/2018 5:48 AM EDT BASIC METABOLIC PANEL Routine 04/20/2018 5:48 AM EDT DRESSING CHANGE (VAC ASSISTED) UP TO 50SQ.CM Routine 04/19/2018 9:49 AM EDT ANAEROBIC CULTURE Routine 04/19/2018 9:2 5 AM EDT TISSUE CULTURE, AEROBIC & ANAEROBIC Routine 04/19/2018 9:25 AM EDT TISSUE CULTURE Routine 04/19/2018 9:25 AM EDT LIGATION OR BANDING OF HEMODIALYSIS FISTULA OR GRAFT UPPER EXTREMITY Routine 04/19/2018 8:13 AM EDT REPAIR INTERMEDIATE WOUND, >30.0CM, UPPER EXTREMITY Routine 04/19/2018 7:40 AM EDT DRESSING CHANGE (VAC ASSISTED) UP TO 50SQ.CM (WRVU 0.55) Yes 04/19/2018 7:24 AM EDT left distal AVF with ?infection LIGATION OR BANDING OF HEMODIALYSIS FISTULA OR GRAFT UPPER EXTREMITY (WRVU 6.25) Yes 04/19/2018 7:24 AM EDT left distal AVF with ?infection HEMOGRAM Routine 04/19/2018 6:25 AM EDT DIFFERENTIAL, AUTOMATED Routine 04/19/2018 6:25 AM EDT TACROLIMUS LEVEL Routine 04/19/2018 6:25 AM EDT APTT Routine 04/19/2018 6:25 AM EDT PROTHROMBIN TIME Routine 04/19/2018 6:25 AM EDT CBC (WITH DIFF) Routine 04/19/2018 6:25 AM EDT BASIC METABOLIC PANEL Routine 04/19/2018 6:25 AM EDT AVF/ESTABLISHED ACCESS EVALUATION Routine 04/18/2018 1:29 PM EDT End stage renal disease Hemorrhagic shock HEMOGRAM Routine 04/18/2018 5:26 AM EDT DIFFERENTIAL, AUTOMATED Routine 04/18/2018 5:26 AM EDT APTT Routine 04/18/2018 5:26 AM EDT PROTHROMBIN TIME Routine 04/18/2018 5:26 AM EDT CBC (WITH DIFF) Routine 04/18/2018 5:26 AM EDT BASIC METABOLIC PANEL Routine 04/18/2018 5:26 AM EDT ABORH RECHECK STATUS STAT 04/17/2018 9:07 AM EDT ABO/RH TYPING STAT 04/17/2018 9:07 AM EDT ANTIBODY SCREEN STAT 04/17/2018 9:07 AM EDT TYPE AND SCREEN ([facility]P/[facility]IN) STAT 04/17/2018 9:07 AM EDT HEMOGRAM Routine 04/17/2018 4:43 AM EDT DIFFERENTIAL, AUTOMATED Routine 04/17/2018 4:43 AM EDT APTT Routine 04/17/2018 4:43 AM EDT PROTHROMBIN TIME Routine 04/17/2018 4:43 AM EDT CBC (WITH DIFF) Routine 04/17/2018 4:43 AM EDT BASIC METABOLIC PANEL Routine 04/17/2018 4:43 AM EDT HEMOGRAM Routine 04/16/2018 4:17 AM EDT DIFFERENTIAL, AUTOMATED Routine 04/16/2018 4:17 AM EDT APTT Routine 04/16/2018 4:17 AM EDT PROTHROMBIN TIME Routine 04/16/2018 4:17 AM EDT CBC (WITH DIFF) Routine 04/16/2018 4:17 AM EDT BASIC METABOLIC PANEL Routine 04/16/2018 4:17 AM EDT APTT Routine 04/15/2018 4:57 AM EDT PROTHROMBIN TIME Routine 04/15/2018 4:57 AM EDT HEMOGRAM Routine 04/15/2018 4:47 AM EDT DIFFERENTIAL, AUTOMATED Routine 04/15/2018 4:47 AM EDT CBC (WITH DIFF) Routine 04/15/2018 4:47 AM EDT BASIC METABOLIC PANEL Routine 04/15/2018 4:47 AM EDT MODIFIER WOUND VAC 04/14/2018 7: 31 AM EDT open LUE fasciotomies REPAIR INTERMEDIATE WOUND, (NO HANDS OR FEET) >30.0CM, UPPER EXTREMITY (WRVU 5) 04/14/2018 7:31 AM EDT open LUE fasciotomies HEMOGRAM Routine 04/14/2018 5:48 AM EDT DIFFERENTIAL, AUTOMATED Routine 04/14/2018 5:48 AM EDT APTT Routine 04/14/2018 5:48 AM EDT PROTHROMBIN TIME Routine 04/14/2018 5:48 AM EDT CBC (WITH DIFF) Routine 04/14/2018 5:48 AM EDT BASIC METABOLIC PANEL Routine 04/14/2018 5:48 AM EDT HEMOGRAM Routine 04/13/2018 8:14 AM EDT DIFFERENTIAL, AUTOMATED Routine 04/13/2018 8:14 AM EDT TACROLIMUS LEVEL Timed 04/13/2018 8:14 AM EDT APTT Routine 04/13/2018 8:14 AM EDT PROTHROMBIN TIME Routine 04/13/2018 8:14 AM EDT CBC (WITH DIFF) Routine 04/13/2018 8:14 AM EDT BASIC METABOLIC PANEL Routine 04/13/2018 8:14 AM EDT PROTEIN/CREATININE RATIO, URINE Routine 04/13/2018 3:45 AM EDT URINALYSIS MICROSCOPIC EXAM Routine 04/13/2018 1:51 AM EDT URINALYSIS WITH REFLEX CULTURE Routine 04/13/2018 1:51 AM EDT MRI HEAD ANGIOGRAM WO CONTRAST Routine 04/12/2018 4:15 PM EDT MRI NECK ANGIOGRAM WO CONTRAST Routine 04/12/2018 4:15 PM EDT HEMOGRAM Routine 04/12/2018 8:40 AM EDT DIFFERENTIAL, AUTOMATED Routine 04/12/2018 8:40 AM EDT GOLD TUBE HOLD Routine 04/12/2018 8:40 AM EDT APTT Routine 04/12/2018 8:40 AM EDT PROTHROMBIN TIME Routine 04/12/2018 8:40 AM EDT CBC (WITH DIFF) Routine 04/12/2018 8:40 AM EDT BASIC METABOLIC PANEL Routine 04/12/2018 8:40 AM EDT ECHO COMPLETE Routine 04/11/2018 2:53 PM EDT Cerebrovascular accident (CVA) due to embolism of precerebral artery ABORH RECHECK STATUS Routine 04/11/2018 6:28 AM EDT ABO/RH TYPING Routine 04/11/2018 6:28 AM EDT ANTIBODY SCREEN Routine 04/11/2018 6:28 AM EDT TYPE AND SCREEN ([facility]/CGP/GAVIN) Routine 04/11/2018 6:28 AM EDT HEMOGRAM Routine 04/11/2018 5:55 AM EDT DIFFERENTIAL, AUTOMATED Routine 04/11/2018 5:55 AM EDT APTT Routine 04/11/2018 5:55 AM EDT PROTHROMBIN TIME Routine 04/11/2018 5:55 AM EDT CBC (WITH DIFF) Routine 04/11/2018 5:55 AM EDT BASIC METABOLIC PANEL Routine 04/11/2018 5:55 AM EDT POCT GLUCOSE Routine 04/10/2018 7:56 AM EDT HEMOGRAM Routine 04/10/2018 5:35 AM EDT DIFFERENTIAL, AUTOMATED Routine 04/10/2018 5:35 AM EDT APTT Routine 04/10/2018 5:35 AM EDT PROTHROMBIN TIME Routine 04/10/2018 5:35 AM EDT CBC (WITH DIFF) Routine 04/10/2018 5:35 AM EDT BASIC METABOLIC PANEL Routine 04/10/2018 5:35 AM EDT POCT GLUCOSE Routine 04/09/2018 8:26 PM EDT APTT Routine 04/09/2018 8:25 PM EDT PROTHROMBIN TIME Routine 04/09/2018 8:25 PM EDT TRANSFUSE THAWED PLASMA Routine 04/09/2018 4:28 PM EDT TRANSFUSE THAWED PLASMA Routine 04/09/2018 3:29 PM EDT TRANSFUSE THAWED PLASMA Routine 04/09/2018 12:30 PM EDT PREPARE THAWED PLASMA Routine 04/09/2018 11:05 AM EDT APTT Routine 04/09/2018 10:03 AM EDT PROTHROMBIN TIME Routine 04/09/2018 10:0 3 AM EDT HEMOGRAM Routine 04/09/2018 3:05 AM EDT DIFFERENTIAL, AUTOMATED Routine 04/09/2018 3:05 AM EDT CBC (WITH DIFF) Routine 04/09/2018 3:05 AM EDT BASIC METABOLIC PANEL Routine 04/09/2018 3:05 AM EDT LAVENDER TUBE HOLD Routine 04/08/2018 8: 10 PM EDT PHENYTOIN LEVEL, TOTAL AND FREE Routine 04/08/2018 8:10 PM EDT ZEEG AWAKE, ASLEEP, DROWSY STAT 04/08/2018 3:45 PM EDT CAROTID DUPLEX, BILATERAL STAT 04/08/2018 2:49 PM EDT Cerebral infarction, unspecified mechanism LEVETIRACETAM LEVEL STAT 04/08/2018 1 :55 PM EDT PREPARE RBC Routine 04/08/2018 11:15 AM EDT PREPARE RBC Routine 04/08/2018 11:15 AM EDT HEMOGLOBIN AND HEMATOCRIT, BLOOD Routine 04/08/2018 10:45 AM EDT APTT Routine 04/08/2018 10:45 AM EDT PROTHROMBIN TIME Routine 04/08/2018 10:4 5 AM EDT CK Routine 04/08/2018 10:45 AM EDT TACROLIMUS LEVEL Timed 04/08/2018 8:30 AM EDT TRANSFUSE RED BLOOD CELLS Routine 04/08/2018 5:20 AM EDT PREPARE RBC Routine 04/08/2018 4:55 AM EDT HEMOGRAM Routine 04/08/2018 4:05 AM EDT DIFFERENTIAL, AUTOMATED Routine 04/08/2018 4:05 AM EDT BLUE TUBE HOLD Routine 04/08/2018 4:05 AM EDT CBC (WITH DIFF) Routine 04/08/2018 4:05 AM EDT BASIC METABOLIC PANEL Routine 04/08/2018 4:05 AM EDT MRI BRAIN WO CONTRAST Routine 04/07/2018 9:11 PM EDT REQUEST FOR 2ND READ CT SPINE Routine 04/07/2018 9:13 AM EDT POCT GLUCOSE Routine 04/07/2018 5:56 AM EDT CARDIAC ENZYMES ([facility]/CGP) Routine 04/07/2018 5:55 AM EDT HEMOGLOBIN AND HEMATOCRIT, BLOOD Routine 04/07/2018 5:55 AM EDT LACTATE, WHOLE BLOOD Routine 04/07/2018 5:55 AM EDT CK Timed 04/07/2018 5:55 AM EDT BASIC METABOLIC PANEL Routine 04/07/2018 4:30 AM EDT POCT GLUCOSE Routine 04/07/2018 3:35 AM EDT HEMOGLOBIN AND HEMATOCRIT, BLOOD Routine 04/07/2018 12:15 AM EDT LACTATE, WHOLE BLOOD Routine 04/07/2018 12:15 AM EDT CK Timed 04/07/2018 12:15 AM EDT BASIC METABOLIC PANEL Routine 04/07/2018 12:15 AM EDT EXTUBATE Routine 04/06/2018 8:32 PM EDT POCT GLUCOSE Routine 04/06/2018 8:30 PM EDT REQUEST FOR 2ND READ CT CHEST ABDOMEN PELVIS Routine 04/06/2018 6:08 PM EDT CMP W/FASTING GLUCOSE STAT 04/06/2018 5:40 PM EDT HEMOGRAM STAT 04/06/2018 5:40 PM EDT DIFFERENTIAL, AUTOMATED STAT 04/06/2018 5:40 PM EDT CARDIAC ENZYMES ([facility]P) STAT 04/06/2018 5:40 PM EDT APTT STAT 04/06/2018 5:40 PM EDT PROTHROMBIN TIME STAT 04/06/2018 5:40 PM EDT CBC (WITH DIFF) STAT 04/06/2018 5:40 PM EDT PHOSPHORUS STAT 04/06/2018 5:40 PM EDT MAGNESIUM STAT 04/06/2018 5:40 PM EDT BLOOD GAS ARTERIAL POC Routine 04/06/2018 5:24 PM EDT POCT GLUCOSE Routine 04/06/2018 5:10 PM EDT MEDIAN NERVE DECOMPRESSION (CARPAL TUNNEL RELEASE) Routine 04/06/2018 5:03 PM EDT REPAIR BLOOD VESSEL WITH GRAFT OTHER THAN VEIN, UPPER EXTREMITY Routine 04/06/2018 5:03 PM EDT FASCIOTOMY,FOREARM,W\ BRACHIAL ARTERY EXPLORATION-ORTHO Routine 04/06/2018 4:25 PM EDT BLOOD GAS ARTERIAL POC Routine 04/06/2018 4:04 PM EDT (MSURG) CARPAL TUNNEL Routine 04/06/2018 4:03 PM EDT SCAN, PERIPHERAL BLOOD STAT 04/06/2018 3:53 PM EDT HEMOGRAM STAT 04/06/2018 3:53 PM EDT DIFFERENTIAL, AUTOMATED STAT 04/06/2018 3:53 PM EDT APTT STAT 04/06/2018 3:53 PM EDT PROTHROMBIN TIME STAT 04/06/2018 3:53 PM EDT CBC (WITH DIFF) STAT 04/06/2018 3:53 PM EDT BLOOD GAS ARTERIAL POC Routine 04/06/2018 3:41 PM EDT BLOOD GAS ARTERIAL POC Routine 04/06/2018 3:13 PM EDT BLOOD GAS ARTERIAL POC Routine 04/06/2018 2:48 PM EDT BLOOD GAS ARTERIAL POC Routine 04/06/2018 2:46 PM EDT BLOOD GAS ARTERIAL POC Routine 04/06/2018 2:16 PM EDT ANAEROBIC CULTURE Routine 04/06/2018 2:1 5 PM EDT BODY FLUID CULTURE, AEROBIC & ANAEROBIC Routine 04/06/2018 2:15 PM EDT BODY FLUID CULTURE, AEROBIC Routine 04/06/2018 2:15 PM EDT BLOOD GAS ARTERIAL POC Routine 04/06/2018 1:53 PM EDT REQUEST FOR 2ND READ CT HEAD AND SPINE STAT 04/06/2018 1:41 PM EDT REPAIR BLOOD VESSEL WITH GRAFT OTHER THAN VEIN, UPPER EXTREMITY (WRVU 15.83) 04/06/2018 1:29 PM EDT bleeding AVF MEDIAN NERVE DECOMPRESSION (CARPAL TUNNEL RELEASE) (WRVU 4.97) 04/06/2018 1:29 PM EDT bleeding AVF FASCIOTOMY, FOREARM, WITH BRACHIAL ARTERY EXPLORATION (WRVU 8.41) 04/06/2018 1:29 PM EDT bleeding AVF (MSURG) CARPAL TUNNEL (WRVU 4.82) 04/06/2018 1:29 PM EDT bleeding AVF @REPAIR, RUPTURED AXILLARY OR BRACHIAL ARTERY ANEURYSM BY ARM INCISION (WRVU 23.23) 04/06/2018 1:29 PM EDT bleeding AVF URINALYSIS MICROSCOPIC EXAM STAT 04/06/2018 1:25 PM EDT RAPID DRUG SCREEN, URINE STAT 04/06/2018 1:25 PM EDT RAPID DRUG SCREEN W/O CONFIRMATION, URINE STAT 04/06/2018 1:25 PM EDT URINALYSIS WITH REFLEX CULTURE STAT 04/06/2018 1:25 PM EDT REPAIR, RUPTURED AXILLARY OR BRACHIAL ARTERY ANEURYSM BY ARM INCISION Routine 04/06/2018 1:17 PM EDT ABORH RECHECK STATUS STAT 04/06/2018 1:15 PM EDT SCAN, PERIPHERAL BLOOD STAT 04/06/2018 1:15 PM EDT HEMOGRAM STAT 04/06/2018 1:15 PM EDT DIFFERENTIAL, AUTOMATED STAT 04/06/2018 1:15 PM EDT GOLD TUBE HOLD STAT 04/06/2018 1:15 PM EDT BLUE TUBE HOLD STAT 04/06/2018 1:15 PM EDT BLUE TUBE HOLD STAT 04/06/2018 1:15 PM EDT ABO/RH TYPING STAT 04/06/2018 1:15 PM EDT APTT STAT 04/06/2018 1:15 PM EDT PROTHROMBIN TIME STAT 04/06/2018 1:15 PM EDT FIBRINOGEN STAT 04/06/2018 1:15 PM EDT CBC (WITH DIFF) STAT 04/06/2018 1:15 PM EDT ANTIBODY SCREEN STAT 04/06/2018 1:15 PM EDT TYPE AND SCREEN ([facility]) STAT 04/06/2018 1:15 PM EDT CK STAT 04/06/2018 1:15 PM EDT ETHANOL LEVEL STAT 04/06/2018 1:15 PM EDT BASIC METABOLIC PANEL STAT 04/06/2018 1:15 PM EDT XR CHEST AP AND PELVIS AP TRAUMA STAT 04/06/2018 1:14 PM EDT BLOOD GAS ARTERIAL POC Routine 04/06/2018 1:14 PM EDT PREPARE RBC STAT 04/06/2018 1:05 PM EDT FILM LIBRARY STORAGE ONLY CT CHEST ABDOMEN PELVIS Routine 04/06/2018 12:05 AM EDT LAB SCAN 04/06/2018 12:00 AM EDT IMPLANTABLE DEVICES SCAN 04/06/2018 12:00 AM EDT OPERATIONS INTELLIGENCE SUPERINTENDENT SCAN 04/06/2018 12:00 AM EDT FILM LIBRARY STORAGE ONLY CT HEAD AND SPINE STAT 04/06/2018 12:00 AM EDT documented in this encounter Results * (ABNORMAL) Basic Metabolic Panel (non-fasting) (05/04/2018 3:00 AM EDT) Glucose 100 65 - 199 mg/dL [facility] Comment:Diabetes: >=200 mg/d L plus symptoms Blood Urea Nitrogen 40(H) 10 - 20 mg/dL [facility] Creatinine 3.05(H) 0.80 - 1.50 mg/dL [facility] Sodium 131(L) 135 - 145 mmol/L [facility] Potassium 4.1 3.5 - 5.0 mmol/L [facility] Comment: Please note: ??Patients with WBC >100,000 may have falsely elevated Potassium levels. ??For accurate Potassium quantification in these patients send serum separator tube (gold top) for subsequent determinations. ??Contact the Clinical Chemistry Laboratory if there are any questions. Chloride 99 98 - 107 mmol/L [facility] Carbon Dioxide 19(L) 22 - 31 mmol/L [facility] Anion Gap 13 5 - 15 mmol/L [facility] Calcium 8.0(L) 8.5 - 10.5 mg/dL [facility] Est Glomerular Filtration Rate 22(L) >=60 mL/min/1. 73 m?? [facility] Comment: The eGFR was calculated using the CKD-EPI equation. As with all creatinine based estimates of kidney function, eGFR values calculated with the CKD-EPI equation are not accurate in patients with acute kidney failure, extremes of body mass or the acutely ill. [email or web address] eGFR 25(L) >=60 mL/min/1. 73 m?? [facility] Comment: The eGFR was calculated using the CKD-EPI equation. As with all creatinine based estimates of kidney function, eGFR values calculated with the CKD-EPI equation are not accurate in patients with acute kidney failure, extremes of body mass or the acutely ill. [email or web address] Blood specimen (specimen) 05/04/2018 3:00 AM EDT 05/04/2018 3:08 AM EDT Narrative Resulting Agency Comment Spec In Lab Hay Sparks MD CHEMISTRY ORDERABLES Performing Organization Address [facility] de Phone Number [facility] [place] [address] * Vancomycin, trough (05/03/2018 6:40 PM EDT) Pathologist [facility] Vancomycin, Trough 14.2 mg/L [facility] Comment: Therapeutic range for complicated infections such as bacteremia, endocarditis, osteomyelitis, meningitis, and hospital-acquired pneumonia caused by S. aureus: 15-20 mg/L Therapeutic range for other indications: 10-15 mg/L Toxic: >20 mg/L Reference: Vancomycin Therapeutic Monitoring: Review and Recommendations from the ASHP, IDSA and SIDP Task Force. ??Am J Health-Syst Pharm. 2009; 66:82-98 Blood specimen (specimen) 05/03/2018 6:40 PM EDT 05/03/2018 6:46 PM EDT Narrative Resulting Agency Comment Spec In Lab Hay Sparks MD CHEMISTRY ORDERABLES Performing Organization Address [facility] de Phone Number [facility] [place] [address] * Differential, Automated (05/03/2018 3:06 AM EDT) Neutrophil % 60.8 % [facility] Neutrophil Absolute 3.01 1.70 - 6.10 x10(3)/[facility] Lymph % 19.8 % [facility] Lymphocytes Abs 1.0 0.9 - 3.2 x10(3)/[facility] Monocyte % 10.7 % [facility] Monocyte Abs 0.5 0.3 - 0.9 x10(3)/[facility] Eos % 8.1 % [facility] Eosinophils Abs 0.4 0.0 - 0.4 x10(3)/[facility] Basophil % 0.4 % [facility] Baso Absolute 0.0 0.0 - 0.1 x10(3)/[facility] Immature Gran % 0.20 % [facility] Comment: Immature granulocytes(IG's)percentage and absolute count will include metamyelocytes, myelocytes, and promyelocytes. Blood smears from CBCs yielding IG's will be scanned manually for concordance. If this scan disagrees with the automated IG or if promyelocytes are noted, a manual differential will be performed. Immature Gran Absolute 0.01 0.00 - 0.04 x10(3)/[facility] Blood specimen (specimen) 05/03/2018 3:06 AM EDT 05/03/2018 3:16 AM EDT Narrative Resulting Agency Comment Spec In Lab Apple Gutierrez MD HEMATOLOGY ORDERABLE S [facility] [place] [address] * (ABNORMAL) Hemogram (05/03/2018 3:06 AM EDT) White Blood Cell 5.0 4.0 - 9.5 x10(3)/mc L [facility] Red Blood Cell 2.64(L) 4.58 - 5.54 x10(6)/mc L [facility] Hemoglobin 8.2(L) 13.7 - 16.5 gm/dL [facility] Hematocrit 25.1(L) 40.5 - 48.5 % [facility] Mean Cell Volume 95.1(H) 82.9 - 93.1 fL [facility] Mean Cell Hemoglobin 31.1 27.5 - 32.1 pg [facility] Mean Cell Hemoglobin Concentration 32.7 32.0 - 35.7 gm/dL [facility] Platelet 160 145 - 357 x10(3)/mc L [facility] RDW Standard Deviation 54.3(H) 36.0 - 45.0 fL [facility] RDW coefficient of variation 15.6(H) 11.4 - 13.8 % [facility] Mean Platelet Volume 9.0 7.6 - 12.9 fL [facility] NRBC% auto 0.0 % [facility] NRBC Absolute 0.000 0.000 - 0.000 x10(3)/mc L [facility] Blood specimen (specimen) 05/03/2018 3:06 AM EDT 05/03/2018 3:16 AM EDT Narrative Resulting Agency Comment Spec In Lab Apple Gutierrez MD HEMATOLOGY ORDERABLE S [facility] [place] [phone] * (ABNORMAL) Basic Metabolic Panel (non-fasting) (05/03/2018 3:06 AM EDT) Glucose 99 65 - 199 mg/dL [facility] Comment:Diabetes: >=200 mg/d L plus symptoms Blood Urea Nitrogen 35(H) 10 - 20 mg/dL [facility] Creatinine 2.58(H) 0.80 - 1.50 mg/dL [facility] Sodium 135 135 - 145 mmol/L [facility] Potassium 4.2 3.5 - 5.0 mmol/L [facility] Comment: Please note: ??Patients with WBC >100,000 may have falsely elevated Potassium levels. ??For accurate Potassium quantification in these patients send serum separator tube (gold top) for subsequent determinations. ??Contact the Clinical Chemistry Laboratory if there are any questions. Chloride 101 98 - 107 mmol/L [facility] Carbon Dioxide 20(L) 22 - 31 mmol/L [facility] Anion Gap 14 5 - 15 mmol/L [facility] Calcium 7.9(L) 8.5 - 10.5 mg/dL [facility] Est Glomerular Filtration Rate 27(L) >=60 mL/min/1. 73 m?? [facility] Comment: The eGFR was calculated using the CKD-EPI equation. As with all creatinine based estimates of kidney function, eGFR values calculated with the CKD-EPI equation are not accurate in patients with acute kidney failure, extremes of body mass or the acutely ill. [email or web address] [email or web address]OTEAUnk eGFR 31(L) >=60 mL/min/1. 73 m?? [facility] Comment: The eGFR was calculated using the CKD-EPI equation. As with all creatinine based estimates of kidney function, eGFR values calculated with the CKD-EPI equation are not accurate in patients with acute kidney failure, extremes of body mass or the acutely ill. [email or web address] [email or web address]OTEAUnkf Blood specimen (specimen) 05/03/2018 3:06 AM EDT 05/03/2018 3:16 AM EDT Narrative Resulting Agency Comment Spec In Lab Hay Sparks MD CHEMISTRY ORDERABLES [facility] [place] [address] * Differential, Automated (05/02/2018 3:20 AM EDT) Neutrophil % 60.2 % [facility] Neutrophil Absolute 2.89 1.70 - 6.10 x10(3)/[facility] Lymph % 20.8 % [facility] Lymphocytes Abs 1.0 0.9 - 3.2 x10(3)/[facility] Monocyte % 9.2 % [facility] Monocyte Abs 0.4 0.3 - 0.9 x10(3)/[facility] Eos % 8.8 % [facility] Eosinophils Abs 0.4 0.0 - 0.4 x10(3)/[facility] LABORATORY Basophil % 0.6 % [facility] Baso Absolute 0.0 0.0 - 0.1 x10(3)/[facility] LABORATORY Immature Gran % 0.40 % [facility] Comment: Immature granulocytes(IG's)percentage and absolute count will include metamyelocytes, myelocytes, and promyelocytes. Blood smears from CBCs yielding IG's will be scanned manually for concordance. If this scan disagrees with the automated IG or if promyelocytes are noted, a manual differential will be performed. Immature Gran Absolute 0.02 0.00 - 0.04 x10(3)/[facility] LABORATORY Blood specimen (specimen) 05/02/2018 3:20 AM EDT 05/02/2018 3:26 AM EDT Narrative Resulting Agency Comment Spec In Lab Apple Gutierrez MD HEMATOLOGY ORDERABLE S [facility] [place] [address] * (ABNORMAL) Hemogram (05/02/2018 3:20 AM EDT) White Blood Cell 4.8 4.0 - 9.5 x10(3)/mc L [facility] Red Blood Cell 2.61(L) 4.58 - 5.54 x10(6)/mc L [facility] Hemoglobin 8.2(L) 13.7 - 16.5 gm/dL [facility] Hematocrit 24.6(L) 40.5 - 48.5 % [facility] Mean Cell Volume 94.3(H) 82.9 - 93.1 fL [facility] Mean Cell Hemoglobin 31.4 27.5 - 32.1 pg [facility] Mean Cell Hemoglobin Concentration 33.3 32.0 - 35.7 gm/dL [facility] Platelet 168 145 - 357 x10(3)/mc L [facility] RDW Standard Deviation 54.4(H) 36.0 - 45.0 fL [facility] RDW coefficient of variation 15.5(H) 11.4 - 13.8 % [facility] Mean Platelet Volume 8.7 7.6 - 12.9 fL [facility] NRBC% auto 0.0 % [facility] NRBC Absolute 0.000 0.000 - 0.000 x10(3)/mc L [facility] Blood specimen (specimen) 05/02/2018 3:20 AM EDT 05/02/2018 3:26 AM EDT Narrative Resulting Agency Comment Spec In Lab Apple Gutierrez MD HEMATOLOGY ORDERABLE S Performing Organization Address City/State/[facility] Co de Phone Number [facility] [place] [address] * (ABNORMAL) Basic Metabolic Panel (non-fasting) (05/02/2018 3:20 AM EDT) Glucose 94 65 - 199 mg/dL [facility] Comment:Diabetes: >=200 mg/d L plus symptoms Blood Urea Nitrogen 38(H) 10 - 20 mg/dL [facility] Creatinine 2.73(H) 0.80 - 1.50 mg/dL [facility] Sodium 135 135 - 145 mmol/L [facility] Potassium 4.3 3.5 - 5.0 mmol/L [facility] Comment: Please note: ??Patients with WBC >100,000 may have falsely elevated Potassium levels. ??For accurate Potassium quantification in these patients send serum separator tube (gold top) for subsequent determinations. ??Contact the Clinical Chemistry Laboratory if there are any questions. Chloride 103 98 - 107 mmol/L [facility] Carbon Dioxide 19(L) 22 - 31 mmol/L [facility] Anion Gap 13 5 - 15 mmol/L [facility] Calcium 7.7(L) 8.5 - 10.5 mg/dL [facility] Est Glomerular Filtration Rate 25(L) >=60 mL/min/1. 73 m?? [facility] Comment: The eGFR was calculated using the CKD-EPI equation. As with all creatinine based estimates of kidney function, eGFR values calculated with the CKD-EPI equation are not accurate in patients with acute kidney failure, extremes of body mass or the acutely ill. [email or web address] eGFR 29(L) >=60 mL/min/1. 73 m?? [facility] Comment: The eGFR was calculated using the CKD-EPI equation. As with all creatinine based estimates of kidney function, eGFR values calculated with the CKD-EPI equation are not accurate in patients with acute kidney failure, extremes of body mass or the acutely ill. [email or web address] Blood specimen (specimen) 05/02/2018 3:20 AM EDT 05/02/2018 3:25 AM EDT Narrative Resulting Agency Comment Spec In Lab Hay Sparks MD CHEMISTRY ORDERABLES [facility] [place] [address] * Differential, Automated (05/01/2018 4:00 AM EDT) Neutrophil % 60.0 % [facility] Neutrophil Absolute 2.98 1.70 - 6.10 x10(3)/[facility] LABORATORY Lymph % 21.2 % [facility] Lymphocytes Abs 1.0 0.9 - 3.2 x10(3)/[facility] LABORATORY Monocyte % 9.7 % [facility] Monocyte Abs 0.5 0.3 - 0.9 x10(3)/[facility] LABORATORY Eos % 8.1 % [facility] Eosinophils Abs 0.4 0.0 - 0.4 x10(3)/[facility] LABORATORY Basophil % 0.8 % [facility] Baso Absolute 0.0 0.0 - 0.1 x10(3)/[facility] LABORATORY Immature Gran % 0.20 % [facility] Comment: Immature granulocytes(IG's)percentage and absolute count will include metamyelocytes, myelocytes, and promyelocytes. Blood smears from CBCs yielding IG's will be scanned manually for concordance. If this scan disagrees with the automated IG or if promyelocytes are noted, a manual differential will be performed. Immature Gran Absolute 0.01 0.00 - 0.04 x10(3)/[facility] LABORATORY Blood specimen (specimen) 05/01/2018 4:00 AM EDT 05/01/2018 4:13 AM EDT Narrative Resulting Agency Comment Spec In Lab Apple Gutierrez MD HEMATOLOGY ORDERABLE S [facility] [place] [address] * (ABNORMAL) Hemogram (05/01/2018 4:00 AM EDT) White Blood Cell 5.0 4.0 - 9.5 x10(3)/mc L [facility] Red Blood Cell 2.71(L) 4.58 - 5.54 x10(6)/mc L [facility] Hemoglobin 8.2(L) 13.7 - 16.5 gm/dL [facility] Hematocrit 25.6(L) 40.5 - 48.5 % [facility] Mean Cell Volume 94.5(H) 82.9 - 93.1 fL [facility] Mean Cell Hemoglobin 30.3 27.5 - 32.1 pg [facility] Mean Cell Hemoglobin Concentration 32.0 32.0 - 35.7 gm/dL [facility] Platelet 192 145 - 357 x10(3)/mc L [facility] RDW Standard Deviation 53.5(H) 36.0 - 45.0 fL [facility] RDW coefficient of variation 15.5(H) 11.4 - 13.8 % [facility] Mean Platelet Volume 8.9 7.6 - 12.9 fL [facility] NRBC% auto 0.0 % [facility] NRBC Absolute 0.000 0.000 - 0.000 x10(3)/mc L [facility] Blood specimen (specimen) 05/01/2018 4:00 AM EDT 05/01/2018 4:13 AM EDT Narrative Resulting Agency Comment Spec In Lab Apple Gutierrez MD HEMATOLOGY ORDERABLE S [facility] [place] [place] [address] * (ABNORMAL) Basic Metabolic Panel (non-fasting) (05/01/2018 4:00 AM EDT) Glucose 101 65 - 199 mg/dL [facility] Comment:Diabetes: >=200 mg/d L plus symptoms Blood Urea Nitrogen 36(H) 10 - 20 mg/dL [facility] Creatinine 2.66(H) 0.80 - 1.50 mg/dL [facility] Sodium 134(L) 135 - 145 mmol/L [facility] Potassium 3.9 3.5 - 5.0 mmol/L [facility] Comment: Please note: ??Patients with WBC >100,000 may have falsely elevated Potassium levels. ??For accurate Potassium quantification in these patients send serum separator tube (gold top) for subsequent determinations. ??Contact the Clinical Chemistry Laboratory if there are any questions. Chloride 101 98 - 107 mmol/L [facility] Carbon Dioxide 19(L) 22 - 31 mmol/L [facility] Anion Gap 14 5 - 15 mmol/L [facility] Calcium 8.0(L) 8.5 - 10.5 mg/dL [facility] Est Glomerular Filtration Rate 26(L) >=60 mL/min/1. 73 m?? [facility] Comment: The eGFR was calculated using the CKD-EPI equation. As with all creatinine based estimates of kidney function, eGFR values calculated with the CKD-EPI equation are not accurate in patients with acute kidney failure, extremes of body mass or the acutely ill. [email or web address] [email or web address]EAUnkf eGFR 30(L) >=60 mL/min/1. 73 m?? [facility] Comment: The eGFR was calculated using the CKD-EPI equation. As with all creatinine based estimates of kidney function, eGFR values calculated with the CKD-EPI equation are not accurate in patients with acute kidney failure, extremes of body mass or the acutely ill. [email or web address] Blood specimen (specimen) 05/01/2018 4:00 AM EDT 05/01/2018 4:13 AM EDT Narrative Resulting Agency Comment Spec In Lab Hay Sparks MD CHEMISTRY ORDERABLES Performing Organization Address [facility] Co de Phone Number [facility] [place] [address] * Vancomycin, trough (04/30/2018 7:05 PM EDT) [facility] Vancomycin, Trough 15.3 mg/L [facility] Comment: Therapeutic range for complicated infections such as bacteremia, endocarditis, osteomyelitis, meningitis, and hospital-acquired pneumonia caused by S. aureus: 15-20 mg/L Therapeutic range for other indications: 10-15 mg/L Toxic: >20 mg/L Reference: Vancomycin Therapeutic Monitoring: Review and Recommendations from the ASHP, IDSA and SIDP Task Force. ??Am J Health-Syst Pharm. 2009; 66:82-98 Blood specimen (specimen) 04/30/2018 7:05 PM EDT 04/30/2018 7:24 PM EDT Narrative Resulting Agency Comment Spec In Lab Hay Sparks MD CHEMISTRY ORDERABLES Performing Organization Address City/[facility]/ZIP Co de Phone Number [facility] [place] [address] * Differential, Automated (04/30/2018 2:55 AM EDT) Pathologist [facility] Neutrophil % 60.3 % [facility] Neutrophil Absolute 3.15 1.70 - 6.10 x10(3)/[facility] LABORATORY Lymph % 22.8 % [facility] Lymphocytes Abs 1.2 0.9 - 3.2 x10(3)/[facility] LABORATORY Monocyte % 10.2 % [facility] Monocyte Abs 0.5 0.3 - 0.9 x10(3)/[facility] LABORATORY Eos % 5.7 % [facility] Eosinophils Abs 0.3 0.0 - 0.4 x10(3)/[facility] LABORATORY Basophil % 0.6 % [facility] Baso Absolute 0.0 0.0 - 0.1 x10(3)/[facility] LABORATORY Immature Gran % 0.40 % [facility] Comment: Immature granulocytes(IG's)percentage and absolute count will include metamyelocytes, myelocytes, and promyelocytes. Blood smears from CBCs yielding IG's will be scanned manually for concordance. If this scan disagrees with the automated IG or if promyelocytes are noted, a manual differential will be performed. Immature Gran Absolute 0.02 0.00 - 0.04 x10(3)/[facility] LABORATORY Blood specimen (specimen) 04/30/2018 2:55 AM EDT 04/30/2018 3:06 AM EDT Narrative Resulting Agency Comment Spec In Lab Apple Gutierrez MD HEMATOLOGY ORDERABLE S [facility] [place] [address] * (ABNORMAL) Hemogram (04/30/2018 2:55 AM EDT) Pathologist [facility] White Blood Cell 5.2 4.0 - 9.5 x10(3)/ L [facility] Red Blood Cell 2.53(L) 4.58 - 5.54 x10(6)/mc L [facility] Hemoglobin 7.9(L) 13.7 - 16.5 gm/dL [facility] Hematocrit 24.3(L) 40.5 - 48.5 % [facility] Mean Cell Volume 96.0(H) 82.9 - 93.1 fL [facility] Mean Cell Hemoglobin 31.2 27.5 - 32.1 pg [facility] Mean Cell Hemoglobin Concentration 32.5 32.0 - 35.7 gm/dL [facility] Platelet 186 145 - 357 x10(3)/mc L [facility] RDW Standard Deviation 54.7(H) 36.0 - 45.0 [facility] LABORATORY RDW coefficient of variation 15.6(H) 11.4 - 13.8 % [facility] Mean Platelet Volume 8.7 7.6 - 12.9 [facility] LABORATORY NRBC% auto 0.0 % [facility] NRBC Absolute 0.000 0.000 - 0.000 x10(3)/mc L [facility] Blood specimen (specimen) 04/30/2018 2:55 AM EDT 04/30/2018 3:06 AM EDT Narrative Resulting Agency Comment Spec In Lab Apple Gutierrez MD HEMATOLOGY ORDERABLE S [facility] [place] [address] * (ABNORMAL) Basic Metabolic Panel (non-fasting) (04/30/2018 2:55 AM EDT) Glucose 96 65 - 199 mg/dL [facility] Comment:Diabetes: >=200 mg/d L plus symptoms Blood Urea Nitrogen 39(H) 10 - 20 mg/dL [facility] Creatinine 2.94(H) 0.80 - 1.50 mg/dL [facility] Sodium 135 135 - 145 mmol/L [facility] Potassium 4.5 3.5 - 5.0 mmol/L [facility] Comment: Please note: ??Patients with WBC >100,000 may have falsely elevated Potassium levels. ??For accurate Potassium quantification in these patients send serum separator tube (gold top) for subsequent determinations. ??Contact the Clinical Chemistry Laboratory if there are any questions. Chloride 100 98 - 107 mmol/L [facility] Carbon Dioxide 21(L) 22 - 31 mmol/L [facility] Anion Gap 14 5 - 15 mmol/L [facility] Calcium 8.1(L) 8.5 - 10.5 mg/dL [facility] Est Glomerular Filtration Rate 23(L) >=60 mL/min/1. 73 m?? [facility] Comment: The eGFR was calculated using the CKD-EPI equation. As with all creatinine based estimates of kidney function, eGFR values calculated with the CKD-EPI equation are not accurate in patients with acute kidney failure, extremes of body mass or the acutely ill. [email or web address] [email or web address]/[email or web address]EAUnkf eGFR 26(L) >=60 mL/min/1. 73 m?? [facility] Comment: The eGFR was calculated using the CKD-EPI equation. As with all creatinine based estimates of kidney function, eGFR values calculated with the CKD-EPI equation are not accurate in patients with acute kidney failure, extremes of body mass or the acutely ill. [email or web address] [email or web address] Blood specimen (specimen) 04/30/2018 2:55 AM EDT 04/30/2018 3:06 AM EDT Narrative Resulting Agency Comment Spec In Lab Hay Sparks MD CHEMISTRY ORDERABLES [facility] [place] [address] * Vancomycin, trough (04/29/2018 5:15 PM EDT) Vancomycin, Trough 15.9 mg/L [facility] Comment: Therapeutic range for complicated infections such as bacteremia, endocarditis, osteomyelitis, meningitis, and hospital-acquired pneumonia caused by S. aureus: 15-20 mg/L Therapeutic range for other indications: 10-15 mg/L Toxic: >20 mg/L Reference: Vancomycin Therapeutic Monitoring: Review and Recommendations from the ASHP, IDSA and SIDP Task Force. ??Am J Health-Syst Pharm. 2009; 66:82-98 Blood specimen (specimen) 04/29/2018 5:15 PM EDT 04/29/2018 5:36 PM EDT Narrative Resulting Agency Comment Spec In Lab Chase Olvera MD CHEMISTRY ORDERAB LES Performing Organization Address [facility] Co de Phone Number [facility] [place] [address] * Vancomycin, trough (04/29/2018 6:55 AM EDT) Vancomycin, Trough 19.5 mg/L [facility] Comment: Therapeutic range for complicated infections such as bacteremia, endocarditis, osteomyelitis, meningitis, and hospital-acquired pneumonia caused by S. aureus: 15-20 mg/L Therapeutic range for other indications: 10-15 mg/L Toxic: >20 mg/L Reference: Vancomycin Therapeutic Monitoring: Review and Recommendations from the ASHP, IDSA and SIDP Task Force. ??Am J Health-Syst Pharm. 2009; 66:82-98 Blood specimen (specimen) 04/29/2018 6:55 AM EDT 04/29/2018 6:59 AM EDT Narrative Resulting Agency Comment Spec In Lab Hay Sparks MD CHEMISTRY ORDERABLES Performing Organization Address City/[facility]/ZIP Co de Phone Number [facility] [place] [address] * Differential, Automated (04/29/2018 5:40 AM EDT) Neutrophil % 63.0 % [facility] Neutrophil Absolute 3.22 1.70 - 6.10 x10(3)/mcL [facility] Lymph % 21.1 % [facility] Lymphocytes Abs 1.1 0.9 - 3.2 x10(3)/[facility] LABORATORY Monocyte % 9.0 % [facility] Monocyte Abs 0.5 0.3 - 0.9 x10(3)/[facility] LABORATORY Eos % 5.5 % [facility] Eosinophils Abs 0.3 0.0 - 0.4 x10(3)/[facility] LABORATORY Basophil % 0.8 % [facility] Baso Absolute 0.0 0.0 - 0.1 x10(3)/[facility] LABORATORY Immature Gran % 0.60 % [facility] Comment: Immature granulocytes(IG's)percentage and absolute count will include metamyelocytes, myelocytes, and promyelocytes. Blood smears from CBCs yielding IG's will be scanned manually for concordance. If this scan disagrees with the automated IG or if promyelocytes are noted, a manual differential will be performed. Immature Gran Absolute 0.03 0.00 - 0.04 x10(3)/[facility] LABORATORY Blood specimen (specimen) 04/29/2018 5:40 AM EDT 04/29/2018 6:11 AM EDT Narrative Resulting Agency Comment Spec In Lab Apple Gutierrez MD HEMATOLOGY ORDERABLE S [facility] [place] [address] * (ABNORMAL) Hemogram (04/29/2018 5:40 AM EDT) White Blood Cell 5.1 4.0 - 9.5 x10(3)/[facility] LABORATORY Red Blood Cell 2.56(L) 4.58 - 5.54 x10(6)/ L [facility] Hemoglobin 7.7(L) 13.7 - 16.5 gm/dL [facility] Hematocrit 24.2(L) 40.5 - 48.5 % [facility] Mean Cell Volume 94.5(H) 82.9 - 93.1 fL [facility] Mean Cell Hemoglobin 30.1 27.5 - 32.1 pg [facility] Mean Cell Hemoglobin Concentration 31.8(L) 32.0 - 35.7 gm/dL [facility] Platelet 216 145 - 357 x10(3)/mc L [facility] RDW Standard Deviation 53.7(H) 36.0 - 45.0 fL [facility] RDW coefficient of variation 15.4(H) 11.4 - 13.8 % [facility] Mean Platelet Volume 8.9 7.6 - 12.9 fL [facility] NRBC% auto 0.0 % [facility] NRBC Absolute 0.000 0.000 - 0.000 x10(3)/mc L [facility] Blood specimen (specimen) 04/29/2018 5:40 AM EDT 04/29/2018 6:11 AM EDT Narrative Resulting Agency Comment Spec In Lab Apple Gutierrez MD HEMATOLOGY ORDERABLE S [facility] [place] [place] [address] * (ABNORMAL) Basic Metabolic Panel (non-fasting) (04/29/2018 5:40 AM EDT) Glucose 91 65 - 199 mg/dL [facility] Comment:Diabetes: >=200 mg/d L plus symptoms Blood Urea Nitrogen 41(H) 10 - 20 mg/dL [facility] Creatinine 2.51(H) 0.80 - 1.50 mg/dL [facility] Sodium 136 135 - 145 mmol/L [facility] Potassium 4.9 3.5 - 5.0 mmol/L [facility] Comment: Please note: ??Patients with WBC >100,000 may have falsely elevated Potassium levels. ??For accurate Potassium quantification in these patients send serum separator tube (gold top) for subsequent determinations. ??Contact the Clinical Chemistry Laboratory if there are any questions. Chloride 104 98 - 107 mmol/L [facility] Carbon Dioxide 21(L) 22 - 31 mmol/L [facility] Anion Gap 11 5 - 15 mmol/L [facility] Calcium 8.0(L) 8.5 - 10.5 mg/dL [facility] Est Glomerular Filtration Rate 28(L) >=60 mL/min/1. 73 m?? [facility] Comment: The eGFR was calculated using the CKD-EPI equation. As with all creatinine based estimates of kidney function, eGFR values calculated with the CKD-EPI equation are not accurate in patients with acute kidney failure, extremes of body mass or the acutely ill. [email or web address] eGFR 32(L) >=60 mL/min/1. 73 m?? [facility] Comment: The eGFR was calculated using the CKD-EPI equation. As with all creatinine based estimates of kidney function, eGFR values calculated with the CKD-EPI equation are not accurate in patients with acute kidney failure, extremes of body mass or the acutely ill. [email or web address] Blood specimen (specimen) 04/29/2018 5:40 AM EDT 04/29/2018 6:11 AM EDT Narrative Resulting Agency Comment Spec In Lab Hay Sparks MD CHEMISTRY ORDERABLES Performing Organization Address City/State/[facility] Co de Phone Number [facility] [place] [address] * (ABNORMAL) Vancomycin, trough (04/28/2018 1:09 PM EDT) Vancomycin, Trough 21.6(Crit ical) mg/L [facility] Comment: Called by: MASSIEL, Read back by: Sagrario Palomino, Date/Time:04/28/18 13:39. Therapeutic range for complicated infections such as bacteremia, endocarditis, osteomyelitis, meningitis, and hospital-acquired pneumonia caused by S. aureus: 15-20 mg/L Therapeutic range for other indications: 10-15 mg/L Toxic: >20 mg/L Reference: Vancomycin Therapeutic Monitoring: Review and Recommendations from the ASHP, IDSA and SIDP Task Force. ??Am J Health-Syst Pharm. 2009; 66:82-98 Blood specimen (specimen) 04/28/2018 1:09 PM EDT 04/28/2018 1:09 PM EDT Narrative Resulting Agency Comment Spec In Lab Hay Sparks MD CHEMISTRY ORDERABLES Performing Organization Address [facility] Co de Phone Number [facility] [place] [phone] * EKG 12 Lead (04/28/2018 7:17 AM EDT) Ventricular rate 51 BPM MUSE SYSTEM Atrial Rate 51 BPM MUSE SYSTEM P-R Interval 162 ms MUSE SYSTEM QRS Duration 92 ms MUSE SYSTEM Q-T Interval 442 ms MUSE SYSTEM QTC Calculated (Bezet) 407 ms MUSE SYSTEM Calculated P [place] 59 degrees MUSE SYSTEM Calculated R [place] 35 degrees MUSE SYSTEM Calculated T [place] 34 degrees MUSE SYSTEM INTERPRETATION Sinus bradycardia Otherwise normal ECG When compared with ECG of 26-MAY-2017 11:16, No significant change was found Confirmed by MD Aure, Sukumar Rubi ([id number]) on 04/29/2018 1:34:03 PM MUSE SYSTEM 04/28/2018 7:17 AM EDT 04/29/2018 1:34 PM EDT Chase Olvera MD ECG ORDERABLES Performing Organization Address [facility] de Phone Number MUSE SYSTEM * Differential, Automated (04/28/2018 4:40 AM EDT) Neutrophil % 66.6 % [facility] Neutrophil Absolute 4.11 1.70 - 6.10 x10(3)/[facility] LABORATORY Lymph % 23.5 % [facility] Lymphocytes Abs 1.4 0.9 - 3.2 x10(3)/[facility] LABORATORY Monocyte % 7.8 % [facility] Monocyte Abs 0.5 0.3 - 0.9 x10(3)/[facility] LABORATORY Eos % 1.5 % [facility] Eosinophils Abs 0.1 0.0 - 0.4 x10(3)/[facility] LABORATORY Basophil % 0.3 % [facility] Baso Absolute 0.0 0.0 - 0.1 x10(3)/[facility] LABORATORY Immature Gran % 0.30 % [facility] Comment: Immature granulocytes(IG's)percentage and absolute count will include metamyelocytes, myelocytes, and promyelocytes. Blood smears from CBCs yielding IG's will be scanned manually for concordance. If this scan disagrees with the automated IG or if promyelocytes are noted, a manual differential will be performed. Immature Gran Absolute 0.02 0.00 - 0.04 x10(3)/[facility] LABORATORY Blood specimen (specimen) 04/28/2018 4:40 AM EDT 04/28/2018 4:53 AM EDT Narrative Resulting Agency Comment Spec In Lab Apple Gutierrez MD HEMATOLOGY ORDERABLE S [facility] [place] [address] * (ABNORMAL) Hemogram (04/28/2018 4:40 AM EDT) White Blood Cell 6.2 4.0 - 9.5 x10(3)/mc L [facility] Red Blood Cell 2.54(L) 4.58 - 5.54 x10(6)/mc L [facility] Hemoglobin 7.6(L) 13.7 - 16.5 gm/dL [facility] Hematocrit 24.3(L) 40.5 - 48.5 % [facility] Mean Cell Volume 95.7(H) 82.9 - 93.1 fL [facility] Mean Cell Hemoglobin 29.9 27.5 - 32.1 pg [facility] Mean Cell Hemoglobin Concentration 31.3(L) 32.0 - 35.7 gm/dL [facility] Platelet 249 145 - 357 x10(3)/mc L [facility] RDW Standard Deviation 55.3(H) 36.0 - 45.0 fL [facility] RDW coefficient of variation 15.6(H) 11.4 - 13.8 % [facility] Mean Platelet Volume 8.7 7.6 - 12.9 fL [facility] NRBC% auto 0.0 % [facility] NRBC Absolute 0.000 0.000 - 0.000 x10(3)/mc L [facility] Blood specimen (specimen) 04/28/2018 4:40 AM EDT 04/28/2018 4:53 AM EDT Narrative Resulting Agency Comment Spec In Lab Apple Gutierrez MD HEMATOLOGY ORDERABLE S Performing Organization Address City/State/[facility] Co de Phone Number [facility] [place] [address] * (ABNORMAL) Basic Metabolic Panel (non-fasting) (04/28/2018 4:40 AM EDT) Glucose 94 65 - 199 mg/dL [facility] Comment:Diabetes: >=200 mg/d L plus symptoms Blood Urea Nitrogen 44(H) 10 - 20 mg/dL [facility] Creatinine 2.80(H) 0.80 - 1.50 mg/dL [facility] Sodium 133(L) 135 - 145 mmol/L [facility] Potassium 4.9 3.5 - 5.0 mmol/L [facility] Comment: Please note: ??Patients with WBC >100,000 may have falsely elevated Potassium levels. ??For accurate Potassium quantification in these patients send serum separator tube (gold top) for subsequent determinations. ??Contact the Clinical Chemistry Laboratory if there are any questions. Chloride 101 98 - 107 mmol/L [facility] Carbon Dioxide 20(L) 22 - 31 mmol/L [facility] Anion Gap 12 5 - 15 mmol/L [facility] Calcium 8.1(L) 8.5 - 10.5 mg/dL [facility] Est Glomerular Filtration Rate 24(L) >=60 mL/min/1. 73 m?? [facility] Comment: The eGFR was calculated using the CKD-EPI equation. As with all creatinine based estimates of kidney function, eGFR values calculated with the CKD-EPI equation are not accurate in patients with acute kidney failure, extremes of body mass or the acutely ill. [email or web address] [email or web address]/[facility] eGFR 28(L) >=60 mL/min/1. 73 m?? [facility] Comment: The eGFR was calculated using the CKD-EPI equation. As with all creatinine based estimates of kidney function, eGFR values calculated with the CKD-EPI equation are not accurate in patients with acute kidney failure, extremes of body mass or the acutely ill. [email or web address] [email or web address]/[facility] Blood specimen (specimen) 04/28/2018 4:40 AM EDT 04/28/2018 4:53 AM EDT Narrative Resulting Agency Comment Spec In Lab Hay Sparks MD CHEMISTRY ORDERABLES [facility] [place] [address] * Vancomycin, trough (04/27/2018 1:30 PM EDT) Vancomycin, Trough 11.1 mg/L [facility] Comment: Therapeutic range for complicated infections such as bacteremia, endocarditis, osteomyelitis, meningitis, and hospital-acquired pneumonia caused by S. aureus: 15-20 mg/L Therapeutic range for other indications: 10-15 mg/L Toxic: >20 mg/L Reference: Vancomycin Therapeutic Monitoring: Review and Recommendations from the ASHP, IDSA and SIDP Task Force. ??Am J Health-Syst Pharm. 2009; 66:82-98 Blood specimen (specimen) 04/27/2018 1:30 PM EDT 04/27/2018 1:38 PM EDT Narrative Resulting Agency Comment Spec In Lab Hay Sparks MD CHEMISTRY ORDERABLES [facility] [place] [address] * XR PICC Placement Over 5 Years (IV Team) (04/27/2018 10:16 AM EDT) Anatomical Region Laterality Modality N/A Radio Fluoroscop y Narrative 04/27/2018 10:33 AM EDT EXAMINATION: XR PICC PLACEMENT OVER 5 YEARS (IV TEAM) CLINICAL HISTORY: Confirmation of PICC line placement TECHNIQUE: C-arm placement of PICC line. Limited view of the line tip only. COMPARISON: None FINDINGS: Intraprocedural frontal radiograph of the mediastinum demonstrates a right PICC line, with the catheter tip projected at the level of the mid SVC. Procedure Note Oliver Kessler MD - 04/27/2018 EXAMINATION: XR PICC PLACEMENT OVER 5 YEARS (IV TEAM) CLINICAL HISTORY: Confirmation of PICC line placement TECHNIQUE: C-arm placement of PICC line. Limited view of the line tiponly. COMPARISON: None FINDINGS: Intraprocedural frontal radiograph of the mediastinumdemonstrates a right PICC line, with the catheter tip projected at the level of the midSVC. 10:33 AM Chase Olvera MD IMG FLUORO ORDERA BLES * (ABNORMAL) Differential, Automated (04/27/2018 4:43 AM EDT) Neutrophil % 84.4 % [facility] Neutrophil Absolute 4.96 1.70 - 6.10 x10(3)/mc L [facility] Lymph % 9.7 % [facility] Lymphocytes Abs 0.6(L) 0.9 - 3.2 x10(3)/mc L [facility] Monocyte % 5.5 % [facility] Monocyte Abs 0.3 0.3 - 0.9 x10(3)/[facility] Eos % 0.0 % [facility] Eosinophils Abs 0.0 0.0 - 0.4 x10(3)/[facility] Basophil % 0.2 % [facility] Baso Absolute 0.0 0.0 - 0.1 x10(3)/[facility] Immature Gran % 0.20 % [facility] Comment: Immature granulocytes(IG's)percentage and absolute count will include metamyelocytes, myelocytes, and promyelocytes. Blood smears from CBCs yielding IG's will be scanned manually for concordance. If this scan disagrees with the automated IG or if promyelocytes are noted, a manual differential will be performed. Immature Gran Absolute 0.01 0.00 - 0.04 x10(3)/[facility] Blood specimen (specimen) 04/27/2018 4:43 AM EDT 04/27/2018 5:16 AM EDT Narrative Resulting Agency Comment Spec In Lab Apple Gutierrez MD HEMATOLOGY ORDERABLE S [facility] [place] [address] * (ABNORMAL) Hemogram (04/27/2018 4:43 AM EDT) White Blood Cell 5.9 4.0 - 9.5 x10(3)/[facility] Red Blood Cell 2.81(L) 4.58 - 5.54 x10(6)/[facility] Hemoglobin 8.8(L) 13.7 - 16.5 gm/dL [facility] Hematocrit 27.0(L) 40.5 - 48.5 % [facility] Mean Cell Volume 96.1(H) 82.9 - 93.1 fL [facility] Mean Cell Hemoglobin 31.3 27.5 - 32.1 pg [facility] Mean Cell Hemoglobin Concentration 32.6 32.0 - 35.7 gm/dL [facility] Platelet 302 145 - 357 x10(3)/mc L [facility] RDW Standard Deviation 54.9(H) 36.0 - 45.0 fL [facility] RDW coefficient of variation 15.5(H) 11.4 - 13.8 % [facility] Mean Platelet Volume 8.8 7.6 - 12.9 fL [facility] NRBC% auto 0.0 % [facility] NRBC Absolute 0.000 0.000 - 0.000 x10(3)/mc L [facility] Blood specimen (specimen) 04/27/2018 4:43 AM EDT 04/27/2018 5:16 AM EDT Narrative Resulting Agency Comment Spec In Lab Apple Gutierrez MD HEMATOLOGY ORDERABLE S [facility] [place] [address] * (ABNORMAL) Basic Metabolic Panel (non-fasting) (04/27/2018 4:43 AM EDT) Glucose 142 65 - 199 mg/dL [facility] Comment:Diabetes: >=200 mg/d L plus symptoms Blood Urea Nitrogen 41(H) 10 - 20 mg/dL [facility] Creatinine 2.81(H) 0.80 - 1.50 mg/dL [facility] Sodium 132(L) 135 - 145 mmol/L [facility] Potassium 5.6(H) 3.5 - 5.0 mmol/L [facility] Comment: Please note: ??Patients with WBC >100,000 may have falsely elevated Potassium levels. ??For accurate Potassium quantification in these patients send serum separator tube (gold top) for subsequent determinations. ??Contact the Clinical Chemistry Laboratory if there are any questions. Chloride 101 98 - 107 mmol/L [facility] Carbon Dioxide 18(L) 22 - 31 mmol/L [facility] Anion Gap 13 5 - 15 mmol/L [facility] Calcium 8.4(L) 8.5 - 10.5 mg/dL [facility] Est Glomerular Filtration Rate 24(L) >=60 mL/min/1. 73 m?? [facility] Comment: The eGFR was calculated using the CKD-EPI equation. As with all creatinine based estimates of kidney function, eGFR values calculated with the CKD-EPI equation are not accurate in patients with acute kidney failure, extremes of body mass or the acutely ill. [email or web address] [email or web address]/[facility] eGFR 28(L) >=60 mL/min/1. 73 m?? [facility] Comment: The eGFR was calculated using the CKD-EPI equation. As with all creatinine based estimates of kidney function, eGFR values calculated with the CKD-EPI equation are not accurate in patients with acute kidney failure, extremes of body mass or the acutely ill. [email or web address] Blood specimen (specimen) 04/27/2018 4:43 AM EDT 04/27/2018 5:16 AM EDT Narrative Resulting Agency Comment Spec In Lab Hay Sparks MD CHEMISTRY ORDERABLES [facility] [place] [address] * (ABNORMAL) Hemogram (04/26/2018 3:09 PM EDT) White Blood Cell 4.8 4.0 - 9.5 x10(3)/mc L [facility] Red Blood Cell 2.90(L) 4.58 - 5.54 x10(6)/mc L [facility] Hemoglobin 8.8(L) 13.7 - 16.5 gm/dL [facility] Hematocrit 27.5(L) 40.5 - 48.5 % [facility] Mean Cell Volume 94.8(H) 82.9 - 93.1 fL [facility] Mean Cell Hemoglobin 30.3 27.5 - 32.1 pg [facility] Mean Cell Hemoglobin Concentration 32.0 32.0 - 35.7 gm/dL [facility] Platelet 273 145 - 357 x10(3)/mc L [facility] RDW Standard Deviation 55.8(H) 36.0 - 45.0 fL [facility] RDW coefficient of variation 15.9(H) 11.4 - 13.8 % [facility] Mean Platelet Volume 9.1 7.6 - 12.9 fL [facility] NRBC% auto 0.0 % [facility] NRBC Absolute 0.000 0.000 - 0.000 x10(3)/mc L [facility] Blood specimen (specimen) 04/26/2018 3:09 PM EDT 04/26/2018 3:16 PM EDT Narrative Resulting Agency Comment Spec In Lab Chase Olvera MD HEMATOLOGY ORDERA BLES [facility] [place] [address] * Vancomycin, trough (04/26/2018 2:15 PM EDT) Pathologist [facility] Vancomycin, Trough 11.8 mg/L [facility] Comment: Therapeutic range for complicated infections such as bacteremia, endocarditis, osteomyelitis, meningitis, and hospital-acquired pneumonia caused by S. aureus: 15-20 mg/L Therapeutic range for other indications: 10-15 mg/L Toxic: >20 mg/L Reference: Vancomycin Therapeutic Monitoring: Review and Recommendations from the ASHP, IDSA and SIDP Task Force. ??Am J Health-Syst Pharm. 2009; 66:82-98 Blood specimen (specimen) 04/26/2018 2:15 PM EDT 04/26/2018 2:23 PM EDT Narrative Resulting Agency Comment Spec In Lab Hay Sparks MD CHEMISTRY ORDERABLES [facility] [place] [place] [address] * ABORH Recheck Status (04/26/2018 11:42 AM EDT) ABORH Type Recheck Completed [facility] Blood specimen (specimen) 04/26/2018 11:42 AM EDT 04/26/2018 11:42 AM EDT Narrative Resulting Agency Comment Spec In Lab Natalya Jacobsen MD BLOOD BANK LAB ORDER KELLY [facility] [place] [place] [address] * Antibody screen (04/26/2018 11:42 AM EDT) Ab Screen Interp Negative [facility] Expires at [id number] on: 04/29/2018 [facility] Blood specimen (specimen) 04/26/2018 11:42 AM EDT 04/26/2018 11:42 AM EDT Narrative Resulting Agency Comment Spec In Lab Natalya Jacobsen MD BLOOD BANK LAB ORDER KELLY [facility] [place] [place] [address] * ABO/Rh Typing (04/26/2018 11:42 AM EDT) ABORH Type A Pos [facility] Blood specimen (specimen) 04/26/2018 11:42 AM EDT 04/26/2018 11:42 AM EDT Narrative Resulting Agency Comment Spec In Lab Natalya Jacobsen MD BLOOD BANK LAB ORDER KELLY [facility] [place] [place] [address] * Differential, Automated (04/26/2018 4:39 AM EDT) Pathologist [facility] Neutrophil % 55.1 % [facility] Neutrophil Absolute 2.56 1.70 - 6.10 x10(3)/[facility] Lymph % 27.7 % [facility] Lymphocytes Abs 1.3 0.9 - 3.2 x10(3)/[facility] Monocyte % 10.5 % [facility] Monocyte Abs 0.5 0.3 - 0.9 x10(3)/[facility] Eos % 5.2 % [facility] Eosinophils Abs 0.2 0.0 - 0.4 x10(3)/[facility] Basophil % 1.3 % [facility] Baso Absolute 0.1 0.0 - 0.1 x10(3)/[facility] Immature Gran % 0.20 % [facility] Comment: Immature granulocytes(IG's)percentage and absolute count will include metamyelocytes, myelocytes, and promyelocytes. Blood smears from CBCs yielding IG's will be scanned manually for concordance. If this scan disagrees with the automated IG or if promyelocytes are noted, a manual differential will be performed. Immature Gran Absolute 0.01 0.00 - 0.04 x10(3)/[facility] Blood specimen (specimen) 04/26/2018 4:39 AM EDT 04/26/2018 4:58 AM EDT Narrative Resulting Agency Comment Spec In Lab Apple Gutierrez MD HEMATOLOGY ORDERABLE S [facility] [place] [address] * (ABNORMAL) Hemogram (04/26/2018 4:39 AM EDT) Pathologist [facility] White Blood Cell 4.6 4.0 - 9.5 x10(3)/mc L [facility] Red Blood Cell 2.58(L) 4.58 - 5.54 x10(6)/mc L [facility] Hemoglobin 7.9(L) 13.7 - 16.5 gm/dL [facility] Hematocrit 24.6(L) 40.5 - 48.5 % [facility] Mean Cell Volume 95.3(H) 82.9 - 93.1 fL [facility] Mean Cell Hemoglobin 30.6 27.5 - 32.1 pg [facility] Mean Cell Hemoglobin Concentration 32.1 32.0 - 35.7 gm/dL [facility] Platelet 253 145 - 357 x10(3)/mc L [facility] RDW Standard Deviation 54.4(H) 36.0 - 45.0 [facility] RDW coefficient of variation 15.7(H) 11.4 - 13.8 % [facility] Mean Platelet Volume 8.4 7.6 - 12.9 [facility] NRBC% auto 0.0 % [facility] NRBC Absolute 0.000 0.000 - 0.000 x10(3)/mc L [facility] Blood specimen (specimen) 04/26/2018 4:39 AM EDT 04/26/2018 4:58 AM EDT Narrative Resulting Agency Comment Spec In Lab Apple Gutierrez MD HEMATOLOGY ORDERABLE S [facility] [place] [address] * (ABNORMAL) Basic Metabolic Panel (non-fasting) (04/26/2018 4:39 AM EDT) Glucose 93 65 - 199 mg/dL [facility] Comment:Diabetes: >=200 mg/d L plus symptoms Blood Urea Nitrogen 37(H) 10 - 20 mg/dL [facility] Creatinine 2.80(H) 0.80 - 1.50 mg/dL [facility] Sodium 138 135 - 145 mmol/L [facility] Potassium 5.2(H) 3.5 - 5.0 mmol/L [facility] Comment: Please note: ??Patients with WBC >100,000 may have falsely elevated Potassium levels. ??For accurate Potassium quantification in these patients send serum separator tube (gold top) for subsequent determinations. ??Contact the Clinical Chemistry Laboratory if there are any questions. Chloride 106 98 - 107 mmol/L [facility] Carbon Dioxide 19(L) 22 - 31 mmol/L [facility] Anion Gap 13 5 - 15 mmol/L [facility] Calcium 8.2(L) 8.5 - 10.5 mg/dL [facility] Est Glomerular Filtration Rate 24(L) >=60 mL/min/1. 73 m?? [facility] Comment: The eGFR was calculated using the CKD-EPI equation. As with all creatinine based estimates of kidney function, eGFR values calculated with the CKD-EPI equation are not accurate in patients with acute kidney failure, extremes of body mass or the acutely ill. [email or web address]://Only [email or web address]/[facility] eGFR 28(L) >=60 mL/min/1. 73 m?? [facility] Comment: The eGFR was calculated using the CKD-EPI equation. As with all creatinine based estimates of kidney function, eGFR values calculated with the CKD-EPI equation are not accurate in patients with acute kidney failure, extremes of body mass or the acutely ill. [email or web address] [email or web address] Blood specimen (specimen) 04/26/2018 4:39 AM EDT 04/26/2018 4:58 AM EDT Narrative Resulting Agency Comment Spec In Lab Hay Sparks MD CHEMISTRY ORDERABLES [facility] [place] [place] [address] * SCAN DOC: ECG (04/26/2018 12:00 AM EDT) Narrative 04/26/2018 12:00 AM EDT Ordered by an unspecified provider. Scanning Provider MEDIA MGR SCAN EXT O RDR/RSLT * Differential, Automated (04/25/2018 5:18 AM EDT) Neutrophil % 64.9 % [facility] Neutrophil Absolute 3.49 1.70 - 6.10 x10(3)/[facility] Lymph % 20.4 % [facility] Lymphocytes Abs 1.1 0.9 - 3.2 x10(3)/[facility] Monocyte % 8.0 % [facility] Monocyte Abs 0.4 0.3 - 0.9 x10(3)/[facility] Eos % 4.8 % [facility] Eosinophils Abs 0.3 0.0 - 0.4 x10(3)/[facility] Basophil % 1.5 % [facility] Baso Absolute 0.1 0.0 - 0.1 x10(3)/[facility] Immature Gran % 0.40 % [facility] Comment: Immature granulocytes(IG's)percentage and absolute count will include metamyelocytes, myelocytes, and promyelocytes. Blood smears from CBCs yielding IG's will be scanned manually for concordance. If this scan disagrees with the automated IG or if promyelocytes are noted, a manual differential will be performed. Immature Gran Absolute 0.02 0.00 - 0.04 x10(3)/[facility] Blood specimen (specimen) 04/25/2018 5:18 AM EDT 04/25/2018 5:43 AM EDT Narrative Resulting Agency Comment Spec In Lab Apple Gutierrez MD HEMATOLOGY ORDERABLE S [facility] [place] [address] * (ABNORMAL) Hemogram (04/25/2018 5:18 AM EDT) White Blood Cell 5.4 4.0 - 9.5 x10(3)/ [facility] Red Blood Cell 2.70(L) 4.58 - 5.54 x10(6)/mc L [facility] Hemoglobin 8.2(L) 13.7 - 16.5 gm/dL [facility] Hematocrit 26.1(L) 40.5 - 48.5 % [facility] Mean Cell Volume 96.7(H) 82.9 - 93.1 [facility] Mean Cell Hemoglobin 30.4 27.5 - 32.1 pg [facility] Mean Cell Hemoglobin Concentration 31.4(L) 32.0 - 35.7 gm/dL [facility] Platelet 327 145 - 357 x10(3)/[facility] RDW Standard Deviation 55.7(H) 36.0 - 45.0 [facility] RDW coefficient of variation 15.8(H) 11.4 - 13.8 % [facility] Mean Platelet Volume 9.1 7.6 - 12.9 [facility] NRBC% auto 0.0 % [facility] NRBC Absolute 0.000 0.000 - 0.000 x10(3)/[facility] Blood specimen (specimen) 04/25/2018 5:18 AM EDT 04/25/2018 5:43 AM EDT Narrative Resulting Agency Comment Spec In Lab Apple Gutierrez MD HEMATOLOGY ORDERABLE S [facility] [place] [place] [address] * (ABNORMAL) Basic Metabolic Panel (non-fasting) (04/25/2018 5:18 AM EDT) Glucose 97 65 - 199 mg/dL [facility] Comment:Diabetes: >=200 mg/d L plus symptoms Blood Urea Nitrogen 39(H) 10 - 20 mg/dL [facility] Creatinine 2.58(H) 0.80 - 1.50 mg/dL [facility] Sodium 138 135 - 145 mmol/L [facility] Potassium 5.2(H) 3.5 - 5.0 mmol/L [facility] Comment: Please note: ??Patients with WBC >100,000 may have falsely elevated Potassium levels. ??For accurate Potassium quantification in these patients send serum separator tube (gold top) for subsequent determinations. ??Contact the Clinical Chemistry Laboratory if there are any questions. Chloride 106 98 - 107 mmol/L [facility] Carbon Dioxide 19(L) 22 - 31 mmol/L [facility] Anion Gap 13 5 - 15 mmol/L [facility] Calcium 8.1(L) 8.5 - 10.5 mg/dL [facility] Est Glomerular Filtration Rate 27(L) >=60 mL/min/1. 73 m?? [facility] Comment: The eGFR was calculated using the CKD-EPI equation. As with all creatinine based estimates of kidney function, eGFR values calculated with the CKD-EPI equation are not accurate in patients with acute kidney failure, extremes of body mass or the acutely ill. [email or web address] [email or web address]/[email or web address] eGFR 31(L) >=60 mL/min/1. 73 m?? [facility] Comment: The eGFR was calculated using the CKD-EPI equation. As with all creatinine based estimates of kidney function, eGFR values calculated with the CKD-EPI equation are not accurate in patients with acute kidney failure, extremes of body mass or the acutely ill. [email or web address] [email or web address] Blood specimen (specimen) 04/25/2018 5:18 AM EDT 04/25/2018 5:43 AM EDT Narrative Resulting Agency Comment Spec In Lab Hay Sparks MD CHEMISTRY ORDERABLES [facility] [place] [address] * Differential, Automated (04/24/2018 4:17 AM EDT) Neutrophil % 58.3 % [facility] Neutrophil Absolute 2.74 1.70 - 6.10 x10(3)/[facility] Lymph % 24.8 % [facility] Lymphocytes Abs 1.2 0.9 - 3.2 x10(3)/[facility] Monocyte % 9.3 % [facility] Monocyte Abs 0.4 0.3 - 0.9 x10(3)/[facility] Eos % 5.9 % [facility] Eosinophils Abs 0.3 0.0 - 0.4 x10(3)/[facility] Basophil % 1.1 % [facility] Baso Absolute 0.0 0.0 - 0.1 x10(3)/[facility] Immature Gran % 0.60 % [facility] Comment: Immature granulocytes(IG's)percentage and absolute count will include metamyelocytes, myelocytes, and promyelocytes. Blood smears from CBCs yielding IG's will be scanned manually for concordance. If this scan disagrees with the automated IG or if promyelocytes are noted, a manual differential will be performed. Immature Gran Absolute 0.03 0.00 - 0.04 x10(3)/[facility] Blood specimen (specimen) 04/24/2018 4:17 AM EDT 04/24/2018 4:40 AM EDT Narrative Resulting Agency Comment Spec In Lab Apple Gutierrez MD HEMATOLOGY ORDERABLE S [facility] [place] [address] * (ABNORMAL) Hemogram (04/24/2018 4:17 AM EDT) White Blood Cell 4.7 4.0 - 9.5 x10(3)/mc L [facility] Red Blood Cell 2.61(L) 4.58 - 5.54 x10(6)/mc L [facility] Hemoglobin 7.9(L) 13.7 - 16.5 gm/dL [facility] Hematocrit 24.6(L) 40.5 - 48.5 % [facility] Mean Cell Volume 94.3(H) 82.9 - 93.1 fL [facility] Mean Cell Hemoglobin 30.3 27.5 - 32.1 pg [facility] Mean Cell Hemoglobin Concentration 32.1 32.0 - 35.7 gm/dL [facility] Platelet 283 145 - 357 x10(3)/mc L [facility] RDW Standard Deviation 54.0(H) 36.0 - 45.0 fL [facility] RDW coefficient of variation 15.7(H) 11.4 - 13.8 % [facility] Mean Platelet Volume 8.6 7.6 - 12.9 [facility] NRBC% auto 0.0 % [facility] NRBC Absolute 0.000 0.000 - 0.000 x10(3)/mc L [facility] Blood specimen (specimen) 04/24/2018 4:17 AM EDT 04/24/2018 4:40 AM EDT Narrative Resulting Agency Comment Spec In Lab Apple Gutierrez MD HEMATOLOGY ORDERABLE S [facility] [place] [address] * (ABNORMAL) Basic Metabolic Panel (non-fasting) (04/24/2018 4:17 AM EDT) Glucose 93 65 - 199 mg/dL [facility] Comment:Diabetes: >=200 mg/d L plus symptoms Blood Urea Nitrogen 38(H) 10 - 20 mg/dL [facility] Creatinine 2.74(H) 0.80 - 1.50 mg/dL [facility] Sodium 138 135 - 145 mmol/L [facility] Potassium 5.2(H) 3.5 - 5.0 mmol/L [facility] Comment: Please note: ??Patients with WBC >100,000 may have falsely elevated Potassium levels. ??For accurate Potassium quantification in these patients send serum separator tube (gold top) for subsequent determinations. ??Contact the Clinical Chemistry Laboratory if there are any questions. Chloride 108(H) 98 - 107 mmol/L [facility] Carbon Dioxide 20(L) 22 - 31 mmol/L [facility] Anion Gap 10 5 - 15 mmol/L [facility] Calcium 8.0(L) 8.5 - 10.5 mg/dL [facility] Est Glomerular Filtration Rate 25(L) >=60 mL/min/1. 73 m?? [facility] Comment: The eGFR was calculated using the CKD-EPI equation. As with all creatinine based estimates of kidney function, eGFR values calculated with the CKD-EPI equation are not accurate in patients with acute kidney failure, extremes of body mass or the acutely ill. [email or web address] [email or web address] eGFR 29(L) >=60 mL/min/1. 73 m?? [facility] Comment: The eGFR was calculated using the CKD-EPI equation. As with all creatinine based estimates of kidney function, eGFR values calculated with the CKD-EPI equation are not accurate in patients with acute kidney failure, extremes of body mass or the acutely ill. [email or web address] Blood specimen (specimen) 04/24/2018 4:17 AM EDT 04/24/2018 4:40 AM EDT Narrative Resulting Agency Comment Spec In Lab Hay Sparks MD CHEMISTRY ORDERABLES [facility] [place] [address] * Differential, Automated (04/23/2018 4:56 AM EDT) Neutrophil % 61.5 % [facility] Neutrophil Absolute 3.19 1.70 - 6.10 x10(3)/mcL [facility] Lymph % 22.2 % [facility] Lymphocytes Abs 1.2 0.9 - 3.2 x10(3)/[facility] Monocyte % 9.5 % [facility] Monocyte Abs 0.5 0.3 - 0.9 x10(3)/[facility] Eos % 5.6 % [facility] Eosinophils Abs 0.3 0.0 - 0.4 x10(3)/[facility] Basophil % 0.8 % [facility] Baso Absolute 0.0 0.0 - 0.1 x10(3)/[facility] Immature Gran % 0.40 % [facility] Comment: Immature granulocytes(IG's)percentage and absolute count will include metamyelocytes, myelocytes, and promyelocytes. Blood smears from CBCs yielding IG's will be scanned manually for concordance. If this scan disagrees with the automated IG or if promyelocytes are noted, a manual differential will be performed. Immature Gran Absolute 0.02 0.00 - 0.04 x10(3)/[facility] Blood specimen (specimen) 04/23/2018 4:56 AM EDT 04/23/2018 5:25 AM EDT Narrative Resulting Agency Comment Spec In Lab Appel Gutierrez MD HEMATOLOGY ORDERABLE S Performing Organization Address City/State/[facility] Co de Phone Number [facility] [place] [address] * (ABNORMAL) Hemogram (04/23/2018 4:56 AM EDT) White Blood Cell 5.2 4.0 - 9.5 x10(3)/mc L [facility] Red Blood Cell 2.60(L) 4.58 - 5.54 x10(6)/mc L [facility] Hemoglobin 8.0(L) 13.7 - 16.5 gm/dL [facility] Hematocrit 24.3(L) 40.5 - 48.5 % [facility] Mean Cell Volume 93.5(H) 82.9 - 93.1 fL [facility] Mean Cell Hemoglobin 30.8 27.5 - 32.1 pg [facility] Mean Cell Hemoglobin Concentration 32.9 32.0 - 35.7 gm/dL [facility] Platelet 317 145 - 357 x10(3)/mc L [facility] RDW Standard Deviation 54.2(H) 36.0 - 45.0 [facility] RDW coefficient of variation 15.9(H) 11.4 - 13.8 % [facility] Mean Platelet Volume 8.5 7.6 - 12.9 [facility] NRBC% auto 0.0 % [facility] NRBC Absolute 0.000 0.000 - 0.000 x10(3)/mc L [facility] Blood specimen (specimen) 04/23/2018 4:56 AM EDT 04/23/2018 5:25 AM EDT Narrative Resulting Agency Comment Spec In Lab Apple Gutierrez MD HEMATOLOGY ORDERABLE S [facility] [place] [address] * (ABNORMAL) Basic Metabolic Panel (non-fasting) (04/23/2018 4:56 AM EDT) Glucose 96 65 - 199 mg/dL [facility] Comment:Diabetes: >=200 mg/d L plus symptoms Blood Urea Nitrogen 36(H) 10 - 20 mg/dL [facility] Creatinine 2.49(H) 0.80 - 1.50 mg/dL [facility] Sodium 137 135 - 145 mmol/L [facility] Potassium 4.9 3.5 - 5.0 mmol/L [facility] Comment: Please note: ??Patients with WBC >100,000 may have falsely elevated Potassium levels. ??For accurate Potassium quantification in these patients send serum separator tube (gold top) for subsequent determinations. ??Contact the Clinical Chemistry Laboratory if there are any questions. Chloride 103 98 - 107 mmol/L [facility] Carbon Dioxide 20(L) 22 - 31 mmol/L [facility] Anion Gap 14 5 - 15 mmol/L [facility] Calcium 8.1(L) 8.5 - 10.5 mg/dL [facility] Est Glomerular Filtration Rate 28(L) >=60 mL/min/1. 73 m?? [facility] Comment: The eGFR was calculated using the CKD-EPI equation. As with all creatinine based estimates of kidney function, eGFR values calculated with the CKD-EPI equation are not accurate in patients with acute kidney failure, extremes of body mass or the acutely ill. [email or web address] [email or web address]EAUnk[facility] eGFR 32(L) >=60 mL/min/1. 73 m?? [facility] Comment: The eGFR was calculated using the CKD-EPI equation. As with all creatinine based estimates of kidney function, eGFR values calculated with the CKD-EPI equation are not accurate in patients with acute kidney failure, extremes of body mass or the acutely ill. [email or web address] Blood specimen (specimen) 04/23/2018 4:56 AM EDT 04/23/2018 5:25 AM EDT Narrative Resulting Agency Comment Spec In Lab Hay Sparks MD CHEMISTRY ORDERABLES [facility] [place] [address] * Differential, Automated (04/22/2018 5:34 AM EDT) Neutrophil % 67.1 % [facility] Neutrophil Absolute 3.67 1.70 - 6.10 x10(3)/[facility] Lymph % 17.3 % [facility] Lymphocytes Abs 1.0 0.9 - 3.2 x10(3)/[facility] Monocyte % 10.0 % [facility] Monocyte Abs 0.6 0.3 - 0.9 x10(3)/[facility] Eos % 4.7 % [facility] Eosinophils Abs 0.3 0.0 - 0.4 x10(3)/[facility] Basophil % 0.7 % [facility] Baso Absolute 0.0 0.0 - 0.1 x10(3)/[facility] Immature Gran % 0.20 % [facility] Comment: Immature granulocytes(IG's)percentage and absolute count will include metamyelocytes, myelocytes, and promyelocytes. Blood smears from CBCs yielding IG's will be scanned manually for concordance. If this scan disagrees with the automated IG or if promyelocytes are noted, a manual differential will be performed. Immature Gran Absolute 0.01 0.00 - 0.04 x10(3)/[facility] Blood specimen (specimen) 04/22/2018 5:34 AM EDT 04/22/2018 5:51 AM EDT Narrative Resulting Agency Comment Spec In Lab Apple Gutierrez MD HEMATOLOGY ORDERABLE S [facility] [place] [address] * (ABNORMAL) Hemogram (04/22/2018 5:34 AM EDT) White Blood Cell 5.5 4.0 - 9.5 x10(3)/mc L [facility] Red Blood Cell 2.62(L) 4.58 - 5.54 x10(6)/mc L [facility] Hemoglobin 8.0(L) 13.7 - 16.5 gm/dL [facility] Hematocrit 24.8(L) 40.5 - 48.5 % [facility] Mean Cell Volume 94.7(H) 82.9 - 93.1 fL [facility] Mean Cell Hemoglobin 30.5 27.5 - 32.1 pg [facility] Mean Cell Hemoglobin Concentration 32.3 32.0 - 35.7 gm/dL [facility] Platelet 289 145 - 357 x10(3)/mc L [facility] RDW Standard Deviation 56.7(H) 36.0 - 45.0 fL [facility] RDW coefficient of variation 16.2(H) 11.4 - 13.8 % [facility] Mean Platelet Volume 8.6 7.6 - 12.9 fL [facility] NRBC% auto 0.0 % [facility] NRBC Absolute 0.000 0.000 - 0.000 x10(3)/mc L [facility] Blood specimen (specimen) 04/22/2018 5:34 AM EDT 04/22/2018 5:51 AM EDT Narrative Resulting Agency Comment Spec In Lab Apple Gutierrez MD HEMATOLOGY ORDERABLE S [facility] [place] [address] * (ABNORMAL) Basic Metabolic Panel (non-fasting) (04/22/2018 5:34 AM EDT) Glucose 100 65 - 199 mg/dL [facility] Comment:Diabetes: >=200 mg/d L plus symptoms Blood Urea Nitrogen 38(H) 10 - 20 mg/dL [facility] Creatinine 2.30(H) 0.80 - 1.50 mg/dL [facility] Sodium 138 135 - 145 mmol/L [facility] Potassium 5.3(H) 3.5 - 5.0 mmol/L [facility] Comment: Please note: ??Patients with WBC >100,000 may have falsely elevated Potassium levels. ??For accurate Potassium quantification in these patients send serum separator tube (gold top) for subsequent determinations. ??Contact the Clinical Chemistry Laboratory if there are any questions. Chloride 106 98 - 107 mmol/L [facility] Carbon Dioxide 19(L) 22 - 31 mmol/L [facility] Anion Gap 13 5 - 15 mmol/L [facility] Calcium 8.0(L) 8.5 - 10.5 mg/dL [facility] Est Glomerular Filtration Rate 31(L) >=60 mL/min/1. 73 m?? [facility] Comment: The eGFR was calculated using the CKD-EPI equation. As with all creatinine based estimates of kidney function, eGFR values calculated with the CKD-EPI equation are not accurate in patients with acute kidney failure, extremes of body mass or the acutely ill. [email or web address] [email or web address] eGFR 35(L) >=60 mL/min/1. 73 m?? [facility] Comment: The eGFR was calculated using the CKD-EPI equation. As with all creatinine based estimates of kidney function, eGFR values calculated with the CKD-EPI equation are not accurate in patients with acute kidney failure, extremes of body mass or the acutely ill. [email or web address] Blood specimen (specimen) 04/22/2018 5:34 AM EDT 04/22/2018 5:51 AM EDT Narrative Resulting Agency Comment Spec In Lab Hay Sparks MD CHEMISTRY ORDERABLES [facility] [place] [address] * Blood culture (04/21/2018 6:05 AM EDT) Blood Culture No growth at 5 days. [facility] Blood specimen (specimen) STRUCTURE OF RIGHT HAND / Unknown 04/21/2018 6:05 AM EDT 04/21/2018 8:01 AM EDT Narrative Resulting Agency Comment Spec In Lab Chase Olvera MD MICROBIOLOGY - BL OOD ORDERABLES [facility] [place] [address] * Blood culture (04/21/2018 5:50 AM EDT) Blood Culture No growth at 5 days. [facility] Blood specimen (specimen) ANTECUBITAL REGION STRUCTURE / Unknown 04/21/2018 5:50 AM EDT 04/21/2018 7:59 AM EDT Narrative Resulting Agency Comment Spec In Lab Chase Olvera MD MICROBIOLOGY - BL OOD ORDERABLES [facility] [place] [address] * Differential, Automated (04/21/2018 5:50 AM EDT) Pathologist [facility] Neutrophil % 66.9 % [facility] Neutrophil Absolute 3.88 1.70 - 6.10 x10(3)/[facility] Lymph % 16.8 % [facility] Lymphocytes Abs 1.0 0.9 - 3.2 x10(3)/[facility] Monocyte % 8.8 % [facility] Monocyte Abs 0.5 0.3 - 0.9 x10(3)/[facility] Eos % 5.9 % [facility] Eosinophils Abs 0.3 0.0 - 0.4 x10(3)/[facility] Basophil % 0.9 % [facility] Baso Absolute 0.0 0.0 - 0.1 x10(3)/[facility] Immature Gran % 0.70 % [facility] Comment: Immature granulocytes(IG's)percentage and absolute count will include metamyelocytes, myelocytes, and promyelocytes. Blood smears from CBCs yielding IG's will be scanned manually for concordance. If this scan disagrees with the automated IG or if promyelocytes are noted, a manual differential will be performed. Immature Gran Absolute 0.04 0.00 - 0.04 x10(3)/[facility] Blood specimen (specimen) 04/21/2018 5:50 AM EDT 04/21/2018 6:29 AM EDT Narrative Resulting Agency Comment Spec In Lab Apple Gutierrez MD HEMATOLOGY ORDERABLE S [facility] [place] [address] * (ABNORMAL) Hemogram (04/21/2018 5:50 AM EDT) White Blood Cell 5.8 4.0 - 9.5 x10(3)/ L [facility] Red Blood Cell 2.55(L) 4.58 - 5.54 x10(6)/mc L [facility] Hemoglobin 7.7(L) 13.7 - 16.5 gm/dL [facility] Hematocrit 24.2(L) 40.5 - 48.5 % [facility] Mean Cell Volume 94.9(H) 82.9 - 93.1 fL [facility] Mean Cell Hemoglobin 30.2 27.5 - 32.1 pg [facility] Mean Cell Hemoglobin Concentration 31.8(L) 32.0 - 35.7 gm/dL [facility] Platelet 316 145 - 357 x10(3)/[facility] RDW Standard Deviation 56.2(H) 36.0 - 45.0 fL [facility] RDW coefficient of variation 16.0(H) 11.4 - 13.8 % [facility] Mean Platelet Volume 8.2 7.6 - 12.9 fL [facility] NRBC% auto 0.0 % [facility] NRBC Absolute 0.000 0.000 - 0.000 x10(3)/ L [facility] Blood specimen (specimen) 04/21/2018 5:50 AM EDT 04/21/2018 6:29 AM EDT Narrative Resulting Agency Comment Spec In Lab Apple Gutierrez MD HEMATOLOGY ORDERABLE S [facility] [place] [place] [address] * (ABNORMAL) Basic Metabolic Panel (non-fasting) (04/21/2018 5:50 AM EDT) Glucose 97 65 - 199 mg/dL [facility] Comment:Diabetes: >=200 mg/d L plus symptoms Blood Urea Nitrogen 34(H) 10 - 20 mg/dL [facility] Creatinine 2.30(H) 0.80 - 1.50 mg/dL [facility] Sodium 138 135 - 145 mmol/L [facility] Potassium 4.8 3.5 - 5.0 mmol/L [facility] Comment: Please note: ??Patients with WBC >100,000 may have falsely elevated Potassium levels. ??For accurate Potassium quantification in these patients send serum separator tube (gold top) for subsequent determinations. ??Contact the Clinical Chemistry Laboratory if there are any questions. Chloride 105 98 - 107 mmol/L [facility] Carbon Dioxide 21(L) 22 - 31 mmol/L [facility] Anion Gap 12 5 - 15 mmol/L [facility] Calcium 8.1(L) 8.5 - 10.5 mg/dL [facility] Est Glomerular Filtration Rate 31(L) >=60 mL/min/1. 73 m?? [facility] Comment: The eGFR was calculated using the CKD-EPI equation. As with all creatinine based estimates of kidney function, eGFR values calculated with the CKD-EPI equation are not accurate in patients with acute kidney failure, extremes of body mass or the acutely ill. [email or web address] eGFR 35(L) >=60 mL/min/1. 73 m?? [facility] Comment: The eGFR was calculated using the CKD-EPI equation. As with all creatinine based estimates of kidney function, eGFR values calculated with the CKD-EPI equation are not accurate in patients with acute kidney failure, extremes of body mass or the acutely ill. [email or web address] Blood specimen (specimen) 04/21/2018 5:50 AM EDT 04/21/2018 6:29 AM EDT Narrative Resulting Agency Comment Spec In Lab Hay Sparks MD CHEMISTRY ORDERABLES [facility] [place] [address] * Differential, Automated (04/20/2018 5:48 AM EDT) Neutrophil % 74.0 % [facility] Neutrophil Absolute 5.39 1.70 - 6.10 x10(3)/[facility] Lymph % 12.8 % [facility] Lymphocytes Abs 0.9 0.9 - 3.2 x10(3)/[facility] Monocyte % 8.2 % [facility] Monocyte Abs 0.6 0.3 - 0.9 x10(3)/[facility] Eos % 4.0 % [facility] Eosinophils Abs 0.3 0.0 - 0.4 x10(3)/[facility] Basophil % 0.5 % [facility] Baso Absolute 0.0 0.0 - 0.1 x10(3)/[facility] Immature Gran % 0.50 % [facility] Comment: Immature granulocytes(IG's)percentage and absolute count will include metamyelocytes, myelocytes, and promyelocytes. Blood smears from CBCs yielding IG's will be scanned manually for concordance. If this scan disagrees with the automated IG or if promyelocytes are noted, a manual differential will be performed. Immature Gran Absolute 0.04 0.00 - 0.04 x10(3)/[facility] Blood specimen (specimen) 04/20/2018 5:48 AM EDT 04/20/2018 6:06 AM EDT Narrative Resulting Agency Comment Spec In Lab Apple Gutierrez MD HEMATOLOGY ORDERABLE S [facility] [place] [place] [address] * (ABNORMAL) Hemogram (04/20/2018 5:48 AM EDT) White Blood Cell 7.3 4.0 - 9.5 x10(3)/mc L [facility] Red Blood Cell 2.53(L) 4.58 - 5.54 x10(6)/mc L [facility] Hemoglobin 7.8(L) 13.7 - 16.5 gm/dL [facility] Hematocrit 23.7(L) 40.5 - 48.5 % [facility] Mean Cell Volume 93.7(H) 82.9 - 93.1 fL [facility] Mean Cell Hemoglobin 30.8 27.5 - 32.1 pg [facility] Mean Cell Hemoglobin Concentration 32.9 32.0 - 35.7 gm/dL [facility] Platelet 302 145 - 357 x10(3)/mc L [facility] RDW Standard Deviation 54.4(H) 36.0 - 45.0 [facility] RDW coefficient of variation 15.9(H) 11.4 - 13.8 % [facility] Mean Platelet Volume 8.5 7.6 - 12.9 [facility] NRBC% auto 0.0 % [facility] NRBC Absolute 0.000 0.000 - 0.000 x10(3)/mc L [facility] Blood specimen (specimen) 04/20/2018 5:48 AM EDT 04/20/2018 6:06 AM EDT Narrative Resulting Agency Comment Spec In Lab Apple Gutierrez MD HEMATOLOGY ORDERABLE S [facility] [place] [place] [address] * APTT (04/20/2018 5:48 AM EDT) Partial Thromboplastin Time 27 25 - 37 sec [facility] Comment: The PTT is NOT appropriate for heparin monitoring. Use the Anti-Xa level for heparin monitoring (HEP UFH) or LMWH monitoring (HEP LMW). A PTT less than 37 seconds generally indicates adequate hemostasis. Blood specimen (specimen) 04/20/2018 5:48 AM EDT 04/20/2018 6:06 AM EDT Narrative Resulting Agency Comment Spec In Lab Chase Olvera MD HEMATOLOGY ORDERA BLES Performing Organization Address [facility] Co de Phone Number [facility] [place] [address] * Prothrombin Time (04/20/2018 5:48 AM EDT) Prothrombin Time 11.6 9.4 - 12.5 sec [facility] International Normalization Ratio 1.0 [facility] Comment: An INR <2.0 indicates [...] depending on clinical circumstances. Blood specimen (specimen) 04/20/2018 5:48 AM EDT 04/20/2018 6:06 AM EDT Narrative Resulting Agency Comment Spec In Lab Chase Olvera MD HEMATOLOGY ORDERA BLES Performing Organization Address [facility] Co de Phone Number [facility] [place] [address] * (ABNORMAL) Basic Metabolic Panel (non-fasting) (04/20/2018 5:48 AM EDT) Glucose 103 65 - 199 mg/dL [facility] Comment:Diabetes: >=200 mg/d L plus symptoms Blood Urea Nitrogen 33(H) 10 - 20 mg/dL [facility] Creatinine 2.38(H) 0.80 - 1.50 mg/dL [facility] Sodium 138 135 - 145 mmol/L [facility] Potassium 4.7 3.5 - 5.0 mmol/L [facility] Comment: Please note: ??Patients with WBC >100,000 may have falsely elevated Potassium levels. ??For accurate Potassium quantification in these patients send serum separator tube (gold top) for subsequent determinations. ??Contact the Clinical Chemistry Laboratory if there are any questions. Chloride 104 98 - 107 mmol/L [facility] Carbon Dioxide 21(L) 22 - 31 mmol/L [facility] Anion Gap 13 5 - 15 mmol/L [facility] Calcium 8.0(L) 8.5 - 10.5 mg/dL [facility] Est Glomerular Filtration Rate 29(L) >=60 mL/min/1. 73 m?? [facility] Comment: The eGFR was calculated using the CKD-EPI equation. As with all creatinine based estimates of kidney function, eGFR values calculated with the CKD-EPI equation are not accurate in patients with acute kidney failure, extremes of body mass or the acutely ill. [email or web address] eGFR 34(L) >=60 mL/min/1. 73 m?? [facility] Comment: The eGFR was calculated using the CKD-EPI equation. As with all creatinine based estimates of kidney function, eGFR values calculated with the CKD-EPI equation are not accurate in patients with acute kidney failure, extremes of body mass or the acutely ill. [email or web address] Blood specimen (specimen) 04/20/2018 5:48 AM EDT 04/20/2018 6:06 AM EDT Narrative Resulting Agency Comment Spec In Lab Hay Sparks MD CHEMISTRY ORDERABLES [facility] [place] [address] * Anaerobic Culture (04/19/2018 9:25 AM EDT) Anaerobic Culture No anaerobic organisms isolated [facility] Skin (tissue) specimen (specimen) 04/19/2018 9:25 AM EDT 04/19/2018 9:37 AM EDT Comment:LEFT ARM SNUFFBOX PS EUDOANEURYSM FOR AEROBIC, ANAEROBIC, GRAM STAIN Narrative Resulting Agency Comment Spec In Lab Odalis Elias MD MICROBIOLOGY - GENERAL ORDERABLES Performing Organization Address [facility] Co de Phone Number [facility] [place] [address] * (ABNORMAL) Tissue culture (04/19/2018 9:25 AM EDT) Tissue Culture Rare Corynebacterium species : possible contaminant(A) [facility] Gram Stain Many Neutrophils seen Rare Gram Negative Rods seen (A) [facility] Organism Gram Negative Rods(A) [facility] Skin (tissue) specimen (specimen) 04/19/2018 9:25 AM EDT 04/19/2018 9:37 AM EDT Comment:LEFT ARM SNUFFBOX PS EUDOANEURYSM FOR AEROBIC, ANAEROBIC, GRAM STAIN Narrative Resulting Agency Comment Spec In Lab Odalis Elias MD MICROBIOLOGY - GENERAL ORDERABLES Performing Organization Address [facility] Co de Phone Number [facility] [place] [address] * Differential, Automated (04/19/2018 6:25 AM EDT) Neutrophil % 68.5 % [facility] Neutrophil Absolute 3.75 1.70 - 6.10 x10(3)/[facility] Lymph % 17.3 % [facility] Lymphocytes Abs 1.0 0.9 - 3.2 x10(3)/[facility] Monocyte % 9.3 % [facility] Monocyte Abs 0.5 0.3 - 0.9 x10(3)/[facility] Eos % 4.0 % [facility] Eosinophils Abs 0.2 0.0 - 0.4 x10(3)/[facility] Basophil % 0.7 % [facility] Baso Absolute 0.0 0.0 - 0.1 x10(3)/[facility] Immature Gran % 0.20 % [facility] Comment: Immature granulocytes(IG's)percentage and absolute count will include metamyelocytes, myelocytes, and promyelocytes. Blood smears from CBCs yielding IG's will be scanned manually for concordance. If this scan disagrees with the automated IG or if promyelocytes are noted, a manual differential will be performed. Immature Gran Absolute 0.01 0.00 - 0.04 x10(3)/[facility] Blood specimen (specimen) 04/19/2018 6:25 AM EDT 04/19/2018 6:32 AM EDT Narrative Resulting Agency Comment Spec In Lab Apple Gutierrez MD HEMATOLOGY ORDERABLE S [facility] [place] [address] * (ABNORMAL) Hemogram (04/19/2018 6:25 AM EDT) White Blood Cell 5.5 4.0 - 9.5 x10(3)/mc L [facility] Red Blood Cell 2.52(L) 4.58 - 5.54 x10(6)/mc L [facility] Hemoglobin 7.7(L) 13.7 - 16.5 gm/dL [facility] Hematocrit 23.3(L) 40.5 - 48.5 % [facility] Mean Cell Volume 92.5 82.9 - 93.1 fL [facility] Mean Cell Hemoglobin 30.6 27.5 - 32.1 pg [facility] Mean Cell Hemoglobin Concentration 33.0 32.0 - 35.7 gm/dL [facility] Platelet 274 145 - 357 x10(3)/mc L [facility] RDW Standard Deviation 53.1(H) 36.0 - 45.0 fL [facility] RDW coefficient of variation 15.6(H) 11.4 - 13.8 % [facility] Mean Platelet Volume 8.3 7.6 - 12.9 fL [facility] NRBC% auto 0.0 % [facility] NRBC Absolute 0.000 0.000 - 0.000 x10(3)/mc L [facility] Blood specimen (specimen) 04/19/2018 6:25 AM EDT 04/19/2018 6:32 AM EDT Narrative Resulting Agency Comment Spec In Lab Apple Gutierrez MD HEMATOLOGY ORDERABLE S Performing Organization Address [facility]/ZIP Co de Phone Number [facility] [place] [address] * APTT (04/19/2018 6:25 AM EDT) Partial Thromboplastin Time 27 25 - 37 sec [facility] Comment: The PTT is NOT appropriate for heparin monitoring. Use the Anti-Xa level for heparin monitoring (HEP UFH) or LMWH monitoring (HEP LMW). A PTT less than 37 seconds generally indicates adequate hemostasis. Blood specimen (specimen) 04/19/2018 6:25 AM EDT 04/19/2018 6:32 AM EDT Narrative Resulting Agency Comment Spec In Lab Chase Olvera MD HEMATOLOGY ORDERA BLES Performing Organization Address City/[facility]/ZIP Co de Phone Number [facility] [place] [address] * Prothrombin Time (04/19/2018 6:25 AM EDT) Prothrombin Time 11.5 9.4 - 12.5 sec [facility] International Normalization Ratio 1.0 [facility] Comment: An INR <2.0 indicates [...] depending on clinical circumstances. Blood specimen (specimen) 04/19/2018 6:25 AM EDT 04/19/2018 6:32 AM EDT Narrative Resulting Agency Comment Spec In Lab Chase Olvera MD HEMATOLOGY ORDERA BLES [facility] [place] [address] * (ABNORMAL) Basic Metabolic Panel (non-fasting) (04/19/2018 6:25 AM EDT) Glucose 100 65 - 199 mg/dL [facility] Comment:Diabetes: >=200 mg/d L plus symptoms Blood Urea Nitrogen 35(H) 10 - 20 mg/dL [facility] Creatinine 2.12(H) 0.80 - 1.50 mg/dL [facility] Sodium 137 135 - 145 mmol/L [facility] Potassium 4.7 3.5 - 5.0 mmol/L [facility] Comment: Please note: ??Patients with WBC >100,000 may have falsely elevated Potassium levels. ??For accurate Potassium quantification in these patients send serum separator tube (gold top) for subsequent determinations. ??Contact the Clinical Chemistry Laboratory if there are any questions. Chloride 104 98 - 107 mmol/L [facility] Carbon Dioxide 21(L) 22 - 31 mmol/L [facility] Anion Gap 12 5 - 15 mmol/L [facility] Calcium 8.0(L) 8.5 - 10.5 mg/dL [facility] Est Glomerular Filtration Rate 34(L) >=60 mL/min/1. 73 m?? [facility] Comment: The eGFR was calculated using the CKD-EPI equation. As with all creatinine based estimates of kidney function, eGFR values calculated with the CKD-EPI equation are not accurate in patients with acute kidney failure, extremes of body mass or the acutely ill. [email or web address] [email or web address]/[email or web address] eGFR 39(L) >=60 mL/min/1. 73 m?? [facility] Comment: The eGFR was calculated using the CKD-EPI equation. As with all creatinine based estimates of kidney function, eGFR values calculated with the CKD-EPI equation are not accurate in patients with acute kidney failure, extremes of body mass or the acutely ill. [email or web address] [email or web address] Blood specimen (specimen) 04/19/2018 6:25 AM EDT 04/19/2018 6:32 AM EDT Narrative Resulting Agency Comment Spec In Lab Hay Sparks MD CHEMISTRY ORDERABLES Performing Organization Address [facility] Co de Phone Number [facility] [place] [address] * Tacrolimus level (04/19/2018 6:25 AM EDT) Tacrolimus 2.8 ng/mL [facility] Comment: Trough therapeutic: ??5-15 ng/mL Performed by ultra-performance liquid chromatography tandem mass spectrometry (UPLCMS/MS). This test was developed and its performance characteristics determined by [facility]. It has not been cleared or approved by the FDA. The laboratory is regulated under CLIA as qualified to perform high-complexity testing. This test is used for clinical purposes. It should not be regarded as investigational or for research. Blood specimen (specimen) 04/19/2018 6:25 AM EDT 04/19/2018 8:11 AM EDT Narrative Resulting Agency Comment Spec In Lab Chase Olvera MD CHEMISTRY ORDERAB LES Performing Organization Address [facility]/ZIP Co de Phone Number [facility] [place] [address] * AVF/Established Access Evaluation (04/18/2018 1:29 PM EDT) VB Text Report Department: Vascular Surgery Lab Patient: [id number] (ARNOL, CHRISTY) CPT: 16834 ICD10: N18.6;R57.8 Referring Physician: CHASE OLVERA ?? Indications: Patient with h/o left ligation of wrist AVF, s/p left brachiocephalic AVF rupture and ligation, now with left wrist snuff box enlarging, ? Patency/anatomy pre-procedure ICD10 Diagnosis Code: N18.6, R57.8 Findings: Left ? PSV (cms) ??EDV (cm/s) ?? Inflow Artery ? 46 ? 3 ?? 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 Due to limited visualization unable to entirely exclude larger diameter or other arterial abnormalities/def ects. Radial artery in the low forearm (proximal to area of concern) is patent and tortuous. The suspected radial artery beyond the area of concern is patent with PSV 11 cm/s. Due to limited visualization an arterial branch/collateral cannot be excluded. Overall, this is new finding compared to the previous exam performed on 11/05/2015. Notification: Dr. Marrero was informed of these preliminary findings. Electronically Signed by: LOUIS LANDIS MD on 2018-04-18 04:10:32 PM [facility] VB Text Report End of Report [facility] 04/18/2018 1:29 PM EDT Chase Olvera MD VASCULAR ORDERABL ES [facility] * Differential, Automated (04/18/2018 5:26 AM EDT) Neutrophil % 67.3 % [facility] Neutrophil Absolute 4.29 1.70 - 6.10 x10(3)/[facility] Lymph % 19.6 % [facility] Lymphocytes Abs 1.2 0.9 - 3.2 x10(3)/[facility] Monocyte % 8.2 % [facility] Monocyte Abs 0.5 0.3 - 0.9 x10(3)/[facility] Eos % 3.9 % [facility] Eosinophils Abs 0.2 0.0 - 0.4 x10(3)/[facility] Basophil % 0.5 % [facility] Baso Absolute 0.0 0.0 - 0.1 x10(3)/[facility] Immature Gran % 0.50 % [facility] Comment: Immature granulocytes(IG's)percentage and absolute count will include metamyelocytes, myelocytes, and promyelocytes. Blood smears from CBCs yielding IG's will be scanned manually for concordance. If this scan disagrees with the automated IG or if promyelocytes are noted, a manual differential will be performed. Immature Gran Absolute 0.03 0.00 - 0.04 x10(3)/[facility] Blood specimen (specimen) 04/18/2018 5:26 AM EDT 04/18/2018 5:39 AM EDT Narrative Resulting Agency Comment Spec In Lab Apple Gutierrez MD HEMATOLOGY ORDERABLE S Performing Organization Address City/State/[facility] Co de Phone Number [facility] [place] [address] * (ABNORMAL) Hemogram (04/18/2018 5:26 AM EDT) White Blood Cell 6.4 4.0 - 9.5 x10(3)/mc L [facility] Red Blood Cell 2.65(L) 4.58 - 5.54 x10(6)/mc L [facility] Hemoglobin 8.0(L) 13.7 - 16.5 gm/dL [facility] Hematocrit 24.6(L) 40.5 - 48.5 % [facility] Mean Cell Volume 92.8 82.9 - 93.1 fL [facility] Mean Cell Hemoglobin 30.2 27.5 - 32.1 pg [facility] Mean Cell Hemoglobin Concentration 32.5 32.0 - 35.7 gm/dL [facility] Platelet 305 145 - 357 x10(3)/mc L [facility] RDW Standard Deviation 53.2(H) 36.0 - 45.0 fL [facility] RDW coefficient of variation 15.7(H) 11.4 - 13.8 % [facility] Mean Platelet Volume 8.3 7.6 - 12.9 fL [facility] NRBC% auto 0.0 % [facility] NRBC Absolute 0.000 0.000 - 0.000 x10(3)/mc L [facility] Blood specimen (specimen) 04/18/2018 5:26 AM EDT 04/18/2018 5:39 AM EDT Narrative Resulting Agency Comment Spec In Lab Apple Gutierrez MD HEMATOLOGY ORDERABLE S Performing Organization Address [facility]/[place] [address] * APTT (04/18/2018 5:26 AM EDT) Partial Thromboplastin Time 27 25 - 37 sec [facility] Comment: The PTT is NOT appropriate for heparin monitoring. Use the Anti-Xa level for heparin monitoring (HEP UFH) or LMWH monitoring (HEP LMW). A PTT less than 37 seconds generally indicates adequate hemostasis. Blood specimen (specimen) 04/18/2018 5:26 AM EDT 04/18/2018 5:39 AM EDT Narrative Resulting Agency Comment Spec In Lab Chase Olvera MD HEMATOLOGY ORDERA BLES Performing Organization Address City/[facility]/ZIP Co de Phone Number [facility] [place] [address] * Prothrombin Time (04/18/2018 5:26 AM EDT) Prothrombin Time 11.2 9.4 - 12.5 sec [facility] International Normalization Ratio 1.0 [facility] Comment: An INR <2.0 indicates [...] depending on clinical circumstances. Blood specimen (specimen) 04/18/2018 5:26 AM EDT 04/18/2018 5:39 AM EDT Narrative Resulting Agency Comment Spec In Lab Chase Olvera MD HEMATOLOGY ORDERA BLES [facility] [place] [address] * (ABNORMAL) Basic Metabolic Panel (non-fasting) (04/18/2018 5:26 AM EDT) Glucose 103 65 - 199 mg/dL [facility] Comment:Diabetes: >=200 mg/d L plus symptoms Blood Urea Nitrogen 36(H) 10 - 20 mg/dL [facility] Creatinine 2.30(H) 0.80 - 1.50 mg/dL [facility] Sodium 135 135 - 145 mmol/L [facility] Potassium 4.3 3.5 - 5.0 mmol/L [facility] Comment: Please note: ??Patients with WBC >100,000 may have falsely elevated Potassium levels. ??For accurate Potassium quantification in these patients send serum separator tube (gold top) for subsequent determinations. ??Contact the Clinical Chemistry Laboratory if there are any questions. Chloride 104 98 - 107 mmol/L [facility] Carbon Dioxide 20(L) 22 - 31 mmol/L [facility] Anion Gap 11 5 - 15 mmol/L [facility] Calcium 8.3(L) 8.5 - 10.5 mg/dL [facility] Est Glomerular Filtration Rate 31(L) >=60 mL/min/1. 73 m?? [facility] Comment: The eGFR was calculated using the CKD-EPI equation. As with all creatinine based estimates of kidney function, eGFR values calculated with the CKD-EPI equation are not accurate in patients with acute kidney failure, extremes of body mass or the acutely ill. [email or web address]://[employer] [email or web address]/[facility] eGFR 35(L) >=60 mL/min/1. 73 m?? [facility] Comment: The eGFR was calculated using the CKD-EPI equation. As with all creatinine based estimates of kidney function, eGFR values calculated with the CKD-EPI equation are not accurate in patients with acute kidney failure, extremes of body mass or the acutely ill. [email or web address] [email or web address]/[email or web address] Blood specimen (specimen) 04/18/2018 5:26 AM EDT 04/18/2018 5:39 AM EDT Narrative Resulting Agency Comment Spec In Lab Hay Sparks MD CHEMISTRY ORDERABLES Performing Organization Address City/[facility]/ZIP Co de Phone Number [facility] [place] [address] * ABORH Recheck Status (04/17/2018 9:07 AM EDT) ABORH Type Recheck Completed [facility] Blood specimen (specimen) 04/17/2018 9:07 AM EDT 04/17/2018 9:22 AM EDT Narrative Resulting Agency Comment Spec In Lab Tim Ogden MD BLOOD BANK LAB ORDE ABDIAS Performing Organization Address City/[facility]/ZIP Co de Phone Number [facility] [place] [address] * Antibody screen (04/17/2018 9:07 AM EDT) Ab Screen Interp Negative [facility] Expires at [id number] on: 04/20/2018 [facility] Blood specimen (specimen) 04/17/2018 9:07 AM EDT 04/17/2018 9:22 AM EDT Narrative Resulting Agency Comment Spec In Lab Tim Ogden MD BLOOD BANK LAB RYAN CALERO Performing Organization Address City/[facility]/ZIP Co de Phone Number [facility] [place] [address] * ABO/Rh Typing (04/17/2018 9:07 AM EDT) Pathologist [facility] ABORH Type A Pos [facility] Blood specimen (specimen) 04/17/2018 9:07 AM EDT 04/17/2018 9:22 AM EDT Narrative Resulting Agency Comment Spec In Lab Tim Ogden MD BLOOD BANK LAB RYAN CALERO Performing Organization Address City/[facility]/ZIP Co de Phone Number [facility] [place] [address] * Differential, Automated (04/17/2018 4:43 AM EDT) Pathologist [facility] Neutrophil % 64.8 % [facility] Neutrophil Absolute 3.62 1.70 - 6.10 x10(3)/[facility] Lymph % 18.6 % [facility] Lymphocytes Abs 1.0 0.9 - 3.2 x10(3)/[facility] Monocyte % 10.0 % [facility] Monocyte Abs 0.6 0.3 - 0.9 x10(3)/[facility] Eos % 5.0 % [facility] Eosinophils Abs 0.3 0.0 - 0.4 x10(3)/[facility] Basophil % 0.9 % [facility] Baso Absolute 0.0 0.0 - 0.1 x10(3)/[facility] Immature Gran % 0.70 % [facility] Comment: Immature granulocytes(IG's)percentage and absolute count will include metamyelocytes, myelocytes, and promyelocytes. Blood smears from CBCs yielding IG's will be scanned manually for concordance. If this scan disagrees with the automated IG or if promyelocytes are noted, a manual differential will be performed. Immature Gran Absolute 0.04 0.00 - 0.04 x10(3)/mcL [facility] Blood specimen (specimen) 04/17/2018 4:43 AM EDT 04/17/2018 5:09 AM EDT Narrative Resulting Agency Comment Spec In Lab Apple Gutierrez MD HEMATOLOGY ORDERABLE S [facility] [place] [address] * (ABNORMAL) Hemogram (04/17/2018 4:43 AM EDT) White Blood Cell 5.6 4.0 - 9.5 x10(3)/mc L [facility] Red Blood Cell 2.47(L) 4.58 - 5.54 x10(6)/mc L [facility] Hemoglobin 7.5(L) 13.7 - 16.5 gm/dL [facility] Hematocrit 22.9(L) 40.5 - 48.5 % [facility] Mean Cell Volume 92.7 82.9 - 93.1 fL [facility] Mean Cell Hemoglobin 30.4 27.5 - 32.1 pg [facility] Mean Cell Hemoglobin Concentration 32.8 32.0 - 35.7 gm/dL [facility] Platelet 282 145 - 357 x10(3)/mc L [facility] RDW Standard Deviation 53.0(H) 36.0 - 45.0 fL [facility] RDW coefficient of variation 15.6(H) 11.4 - 13.8 % [facility] Mean Platelet Volume 8.3 7.6 - 12.9 fL [facility] NRBC% auto 0.0 % [facility] NRBC Absolute 0.000 0.000 - 0.000 x10(3)/mc L [facility] Blood specimen (specimen) 04/17/2018 4:43 AM EDT 04/17/2018 5:09 AM EDT Narrative Resulting Agency Comment Spec In Lab Apple Gutierrez MD HEMATOLOGY ORDERABLE S Performing Organization Address [facility] Co de Phone Number [facility] [place] [address] * APTT (04/17/2018 4:43 AM EDT) Partial Thromboplastin Time 27 25 - 37 sec [facility] Comment: The PTT is NOT appropriate for heparin monitoring. Use the Anti-Xa level for heparin monitoring (HEP UFH) or LMWH monitoring (HEP LMW). A PTT less than 37 seconds generally indicates adequate hemostasis. Blood specimen (specimen) 04/17/2018 4:43 AM EDT 04/17/2018 5:09 AM EDT Narrative Resulting Agency Comment Spec In Lab Chase Olvera MD HEMATOLOGY ORDERA BLES Performing Organization Address [facility] de Phone Number [facility] [place] [address] * Prothrombin Time (04/17/2018 4:43 AM EDT) Prothrombin Time 11.7 9.4 - 12.5 sec [facility] International Normalization Ratio 1.0 [facility] Comment: An INR <2.0 indicates [...] depending on clinical circumstances. Blood specimen (specimen) 04/17/2018 4:43 AM EDT 04/17/2018 5:09 AM EDT Narrative Resulting Agency Comment Spec In Lab Chase Olvera MD HEMATOLOGY ORDERA BLES [facility] [place] [address] * (ABNORMAL) Basic Metabolic Panel (non-fasting) (04/17/2018 4:43 AM EDT) Glucose 100 65 - 199 mg/dL [facility] Comment:Diabetes: >=200 mg/d L plus symptoms Blood Urea Nitrogen 32(H) 10 - 20 mg/dL [facility] Creatinine 2.27(H) 0.80 - 1.50 mg/dL [facility] Sodium 135 135 - 145 mmol/L [facility] Potassium 4.1 3.5 - 5.0 mmol/L [facility] Comment: Please note: ??Patients with WBC >100,000 may have falsely elevated Potassium levels. ??For accurate Potassium quantification in these patients send serum separator tube (gold top) for subsequent determinations. ??Contact the Clinical Chemistry Laboratory if there are any questions. Chloride 104 98 - 107 mmol/L [facility] Carbon Dioxide 19(L) 22 - 31 mmol/L [facility] Anion Gap 12 5 - 15 mmol/L [facility] Calcium 7.7(L) 8.5 - 10.5 mg/dL [facility] Est Glomerular Filtration Rate 31(L) >=60 mL/min/1. 73 m?? [facility] Comment: The eGFR was calculated using the CKD-EPI equation. As with all creatinine based estimates of kidney function, eGFR values calculated with the CKD-EPI equation are not accurate in patients with acute kidney failure, extremes of body mass or the acutely ill. [email or web address] [email or web address] eGFR 36(L) >=60 mL/min/1. 73 m?? [facility] Comment: The eGFR was calculated using the CKD-EPI equation. As with all creatinine based estimates of kidney function, eGFR values calculated with the CKD-EPI equation are not accurate in patients with acute kidney failure, extremes of body mass or the acutely ill. [email or web address] Blood specimen (specimen) 04/17/2018 4:43 AM EDT 04/17/2018 5:09 AM EDT Narrative Resulting Agency Comment Spec In Lab Hay Sparks MD CHEMISTRY ORDERABLES [facility] [place] [address] * (ABNORMAL) Differential, Automated (04/16/2018 4:17 AM EDT) Neutrophil % 59.4 % [facility] Neutrophil Absolute 3.07 1.70 - 6.10 x10(3)/mc L [facility] Lymph % 24.4 % [facility] Lymphocytes Abs 1.3 0.9 - 3.2 x10(3)/ L [facility] Monocyte % 10.3 % [facility] Monocyte Abs 0.5 0.3 - 0.9 x10(3)/mc L [facility] Eos % 4.5 % [facility] Eosinophils Abs 0.2 0.0 - 0.4 x10(3)/mc L [facility] Basophil % 0.4 % [facility] Baso Absolute 0.0 0.0 - 0.1 x10(3)/mc L [facility] Immature Gran % 1.00 % [facility] Comment: Immature granulocytes(IG's)percentage and absolute count will include metamyelocytes, myelocytes, and promyelocytes. Blood smears from CBCs yielding IG's will be scanned manually for concordance. If this scan disagrees with the automated IG or if promyelocytes are noted, a manual differential will be performed. Immature Gran Absolute 0.05(H) 0.00 - 0.04 x10(3)/mc L [facility] Blood specimen (specimen) 04/16/2018 4:17 AM EDT 04/16/2018 4:52 AM EDT Narrative Resulting Agency Comment Spec In Lab Apple Gutierrez MD HEMATOLOGY ORDERABLE S [facility] [place] [address] * (ABNORMAL) Hemogram (04/16/2018 4:17 AM EDT) White Blood Cell 5.2 4.0 - 9.5 x10(3)/[facility] Red Blood Cell 2.62(L) 4.58 - 5.54 x10(6)/[facility] Hemoglobin 7.9(L) 13.7 - 16.5 gm/dL [facility] Hematocrit 24.9(L) 40.5 - 48.5 % [facility] Mean Cell Volume 95.0(H) 82.9 - 93.1 fL [facility] Mean Cell Hemoglobin 30.2 27.5 - 32.1 pg [facility] Mean Cell Hemoglobin Concentration 31.7(L) 32.0 - 35.7 gm/dL [facility] Platelet 288 145 - 357 x10(3)/[facility] LABORATORY RDW Standard Deviation 52.6(H) 36.0 - 45.0 [facility] LABORATORY RDW coefficient of variation 15.4(H) 11.4 - 13.8 % [facility] Mean Platelet Volume 8.5 7.6 - 12.9 [facility] LABORATORY NRBC% auto 0.0 % [facility] NRBC Absolute 0.000 0.000 - 0.000 x10(3)/[facility] LABORATORY Blood specimen (specimen) 04/16/2018 4:17 AM EDT 04/16/2018 4:52 AM EDT Narrative Resulting Agency Comment Spec In Lab Apple Gutierrez MD HEMATOLOGY ORDERABLE S Performing Organization Address [facility]/ZIP Co de Phone Number [facility] [place] [address] * APTT (04/16/2018 4:17 AM EDT) Partial Thromboplastin Time 27 25 - 37 sec [facility] Comment: The PTT is NOT appropriate for heparin monitoring. Use the Anti-Xa level for heparin monitoring (HEP UFH) or LMWH monitoring (HEP LMW). A PTT less than 37 seconds generally indicates adequate hemostasis. Blood specimen (specimen) 04/16/2018 4:17 AM EDT 04/16/2018 4:52 AM EDT Narrative Resulting Agency Comment Spec In Lab Chase Olvera MD HEMATOLOGY ORDERA BLES Performing Organization Address [facility] Co de Phone Number [facility] [place] [address] * Prothrombin Time (04/16/2018 4:17 AM EDT) Prothrombin Time 11.5 9.4 - 12.5 sec [facility] International Normalization Ratio 1.0 [facility] Comment: An INR <2.0 indicates [...] depending on clinical circumstances. Blood specimen (specimen) 04/16/2018 4:17 AM EDT 04/16/2018 4:52 AM EDT Narrative Resulting Agency Comment Spec In Lab Chase Olvera MD HEMATOLOGY ORDERA BLES Performing Organization Address [facility]/ZIP Co de Phone Number [facility] [place] [address] * (ABNORMAL) Basic Metabolic Panel (non-fasting) (04/16/2018 4:17 AM EDT) Glucose 108 65 - 199 mg/dL [facility] Comment:Diabetes: >=200 mg/d L plus symptoms Blood Urea Nitrogen 31(H) 10 - 20 mg/dL [facility] Creatinine 2.27(H) 0.80 - 1.50 mg/dL [facility] Sodium 135 135 - 145 mmol/L [facility] Potassium 4.0 3.5 - 5.0 mmol/L [facility] Comment: Please note: ??Patients with WBC >100,000 may have falsely elevated Potassium levels. ??For accurate Potassium quantification in these patients send serum separator tube (gold top) for subsequent determinations. ??Contact the Clinical Chemistry Laboratory if there are any questions. Chloride 103 98 - 107 mmol/L [facility] Carbon Dioxide 20(L) 22 - 31 mmol/L [facility] Anion Gap 12 5 - 15 mmol/L [facility] Calcium 7.7(L) 8.5 - 10.5 mg/dL [facility] Est Glomerular Filtration Rate 31(L) >=60 mL/min/1. 73 m?? [facility] Comment: The eGFR was calculated using the CKD-EPI equation. As with all creatinine based estimates of kidney function, eGFR values calculated with the CKD-EPI equation are not accurate in patients with acute kidney failure, extremes of body mass or the acutely ill. [email or web address] eGFR 36(L) >=60 mL/min/1. 73 m?? [facility] Comment: The eGFR was calculated using the CKD-EPI equation. As with all creatinine based estimates of kidney function, eGFR values calculated with the CKD-EPI equation are not accurate in patients with acute kidney failure, extremes of body mass or the acutely ill. [email or web address] Blood specimen (specimen) 04/16/2018 4:17 AM EDT 04/16/2018 4:52 AM EDT Narrative Resulting Agency Comment Spec In Lab Hay Sparks MD CHEMISTRY ORDERABLES Performing Organization Address [facility]/ZIP Co de Phone Number [facility] [place] [address] * APTT (04/15/2018 4:57 AM EDT) Partial Thromboplastin Time 27 25 - 37 sec [facility] Comment: The PTT is NOT appropriate for heparin monitoring. Use the Anti-Xa level for heparin monitoring (HEP UFH) or LMWH monitoring (HEP LMW). A PTT less than 37 seconds generally indicates adequate hemostasis. Blood specimen (specimen) 04/15/2018 4:57 AM EDT 04/15/2018 5:23 AM EDT Narrative Resulting Agency Comment Spec In Lab Chase Olvera MD HEMATOLOGY ORDERA BLES Performing Organization Address [facility] Co de Phone Number [facility] [place] [address] * (ABNORMAL) Prothrombin Time (04/15/2018 4:57 AM EDT) Pathologist [facility] Prothrombin Time 12.9(H) 9.4 - 12.5 sec [facility] International Normalization Ratio 1.2 [facility] Comment: An INR <2.0 indicates [...] depending on clinical circumstances. Blood specimen (specimen) 04/15/2018 4:57 AM EDT 04/15/2018 5:23 AM EDT Narrative Resulting Agency Comment Spec In Lab Chase Olvera MD HEMATOLOGY ORDERA BLES Performing Organization Address [facility] Co de Phone Number [facility] [place] [address] * Differential, Automated (04/15/2018 4:47 AM EDT) Neutrophil % 59.8 % [facility] Neutrophil Absolute 2.98 1.70 - 6.10 x10(3)/[facility] LABORATORY Lymph % 22.4 % [facility] Lymphocytes Abs 1.1 0.9 - 3.2 x10(3)/[facility] LABORATORY Monocyte % 11.2 % [facility] Monocyte Abs 0.6 0.3 - 0.9 x10(3)/[facility] LABORATORY Eos % 5.6 % [facility] Eosinophils Abs 0.3 0.0 - 0.4 x10(3)/[facility] LABORATORY Basophil % 0.4 % [facility] Baso Absolute 0.0 0.0 - 0.1 x10(3)/[facility] Immature Gran % 0.60 % [facility] Comment: Immature granulocytes(IG's)percentage and absolute count will include metamyelocytes, myelocytes, and promyelocytes. Blood smears from CBCs yielding IG's will be scanned manually for concordance. If this scan disagrees with the automated IG or if promyelocytes are noted, a manual differential will be performed. Immature Gran Absolute 0.03 0.00 - 0.04 x10(3)/[facility] LABORATORY Blood specimen (specimen) 04/15/2018 4:47 AM EDT 04/15/2018 4:56 AM EDT Narrative Resulting Agency Comment Spec In Lab Apple Gutierrez MD HEMATOLOGY ORDERABLE S [facility] [place] [address] * (ABNORMAL) Hemogram (04/15/2018 4:47 AM EDT) White Blood Cell 5.0 4.0 - 9.5 x10(3)/mc L [facility] Red Blood Cell 2.48(L) 4.58 - 5.54 x10(6)/mc L [facility] Hemoglobin 7.5(L) 13.7 - 16.5 gm/dL [facility] Hematocrit 23.3(L) 40.5 - 48.5 % [facility] Mean Cell Volume 94.0(H) 82.9 - 93.1 [facility] Mean Cell Hemoglobin 30.2 27.5 - 32.1 pg [facility] Mean Cell Hemoglobin Concentration 32.2 32.0 - 35.7 gm/dL [facility] Platelet 224 145 - 357 x10(3)/mc L [facility] RDW Standard Deviation 52.9(H) 36.0 - 45.0 fL [facility] RDW coefficient of variation 15.4(H) 11.4 - 13.8 % [facility] Mean Platelet Volume 8.3 7.6 - 12.9 [facility] NRBC% auto 0.0 % [facility] NRBC Absolute 0.000 0.000 - 0.000 x10(3)/mc L [facility] Blood specimen (specimen) 04/15/2018 4:47 AM EDT 04/15/2018 4:56 AM EDT Narrative Resulting Agency Comment Spec In Lab Apple Gutierrez MD HEMATOLOGY ORDERABLE S [facility] [place] [address] * (ABNORMAL) Basic Metabolic Panel (non-fasting) (04/15/2018 4:47 AM EDT) Glucose 105 65 - 199 mg/dL [facility] Comment:Diabetes: >=200 mg/d L plus symptoms Blood Urea Nitrogen 30(H) 10 - 20 mg/dL [facility] Creatinine 2.17(H) 0.80 - 1.50 mg/dL [facility] Sodium 138 135 - 145 mmol/L [facility] Potassium 4.6 3.5 - 5.0 mmol/L [facility] Comment: Please note: ??Patients with WBC >100,000 may have falsely elevated Potassium levels. ??For accurate Potassium quantification in these patients send serum separator tube (gold top) for subsequent determinations. ??Contact the Clinical Chemistry Laboratory if there are any questions. Chloride 105 98 - 107 mmol/L [facility] Carbon Dioxide 20(L) 22 - 31 mmol/L [facility] Anion Gap 13 5 - 15 mmol/L [facility] Calcium 7.6(L) 8.5 - 10.5 mg/dL [facility] Est Glomerular Filtration Rate 33(L) >=60 mL/min/1. 73 m?? [facility] Comment: The eGFR was calculated using the CKD-EPI equation. As with all creatinine based estimates of kidney function, eGFR values calculated with the CKD-EPI equation are not accurate in patients with acute kidney failure, extremes of body mass or the acutely ill. [email or web address] eGFR 38(L) >=60 mL/min/1. 73 m?? [facility] Comment: The eGFR was calculated using the CKD-EPI equation. As with all creatinine based estimates of kidney function, eGFR values calculated with the CKD-EPI equation are not accurate in patients with acute kidney failure, extremes of body mass or the acutely ill. [email or web address] Blood specimen (specimen) 04/15/2018 4:47 AM EDT 04/15/2018 4:56 AM EDT Narrative Resulting Agency Comment Spec In Lab Hay Sparks MD CHEMISTRY ORDERABLES [facility] [place] [address] * (ABNORMAL) Differential, Automated (04/14/2018 5:48 AM EDT) Neutrophil % 68.9 % [facility] Neutrophil Absolute 3.74 1.70 - 6.10 x10(3)/mc L [facility] Lymph % 15.7 % [facility] Lymphocytes Abs 0.8(L) 0.9 - 3.2 x10(3)/[facility] LAB[facility]ATORY Monocyte % 11.1 % [facility] Monocyte Abs 0.6 0.3 - 0.9 x10(3)/[facility] Eos % 3.7 % [facility] Eosinophils Abs 0.2 0.0 - 0.4 x10(3)/[facility] Basophil % 0.2 % [facility] Baso Absolute 0.0 0.0 - 0.1 x10(3)/[facility] Immature Gran % 0.40 % [facility] Comment: Immature granulocytes(IG's)percentage and absolute count will include metamyelocytes, myelocytes, and promyelocytes. Blood smears from CBCs yielding IG's will be scanned manually for concordance. If this scan disagrees with the automated IG or if promyelocytes are noted, a manual differential will be performed. Immature Gran Absolute 0.02 0.00 - 0.04 x10(3)/[facility] Blood specimen (specimen) 04/14/2018 5:48 AM EDT 04/14/2018 5:59 AM EDT Narrative Resulting Agency Comment Spec In Lab Apple Gutierrez MD HEMATOLOGY ORDERABLE S [facility] [place] [address] * (ABNORMAL) Hemogram (04/14/2018 5:48 AM EDT) White Blood Cell 5.4 4.0 - 9.5 x10(3)/[facility] Red Blood Cell 2.48(L) 4.58 - 5.54 x10(6)/ L [facility] Hemoglobin 7.5(L) 13.7 - 16.5 gm/dL [facility] Hematocrit 22.9(L) 40.5 - 48.5 % [facility] Mean Cell Volume 92.3 82.9 - 93.1 fL [facility] Mean Cell Hemoglobin 30.2 27.5 - 32.1 pg [facility] Mean Cell Hemoglobin Concentration 32.8 32.0 - 35.7 gm/dL [facility] Platelet 208 145 - 357 x10(3)/mc L [facility] RDW Standard Deviation 51.8(H) 36.0 - 45.0 fL [facility] RDW coefficient of variation 15.4(H) 11.4 - 13.8 % [facility] Mean Platelet Volume 8.4 7.6 - 12.9 fL [facility] NRBC% auto 0.0 % [facility] NRBC Absolute 0.000 0.000 - 0.000 x10(3)/mc L [facility] Blood specimen (specimen) 04/14/2018 5:48 AM EDT 04/14/2018 5:59 AM EDT Narrative Resulting Agency Comment Spec In Lab Apple Gutierrez MD HEMATOLOGY ORDERABLE S Performing Organization Address [facility] [place] [address] * APTT (04/14/2018 5:48 AM EDT) Partial Thromboplastin Time 28 25 - 37 sec [facility] Comment: The PTT is NOT appropriate for heparin monitoring. Use the Anti-Xa level for heparin monitoring (HEP UFH) or LMWH monitoring (HEP LMW). A PTT less than 37 seconds generally indicates adequate hemostasis. Blood specimen (specimen) 04/14/2018 5:48 AM EDT 04/14/2018 5:59 AM EDT Narrative Resulting Agency Comment Spec In Lab Chase Olvera MD HEMATOLOGY ORDERA BLES Performing Organization Address [facility]/ZIP Co de Phone Number [facility] [place] [address] * (ABNORMAL) Prothrombin Time (04/14/2018 5:48 AM EDT) Prothrombin Time 15.1(H) 9.4 - 12.5 sec [facility] International Normalization Ratio 1.4 [facility] Comment: An INR <2.0 indicates [...] depending on clinical circumstances. Blood specimen (specimen) 04/14/2018 5:48 AM EDT 04/14/2018 5:59 AM EDT Narrative Resulting Agency Comment Spec In Lab Chase Olvera MD HEMATOLOGY ORDERA BLES [facility] [place] [address] * (ABNORMAL) Basic Metabolic Panel (non-fasting) (04/14/2018 5:48 AM EDT) Pathologist [facility] Glucose 110 65 - 199 mg/dL [facility] Comment:Diabetes: >=200 mg/d L plus symptoms Blood Urea Nitrogen 32(H) 10 - 20 mg/dL [facility] Creatinine 2.38(H) 0.80 - 1.50 mg/dL [facility] Sodium 138 135 - 145 mmol/L [facility] Potassium 4.1 3.5 - 5.0 mmol/L [facility] Comment: Please note: ??Patients with WBC >100,000 may have falsely elevated Potassium levels. ??For accurate Potassium quantification in these patients send serum separator tube (gold top) for subsequent determinations. ??Contact the Clinical Chemistry Laboratory if there are any questions. Chloride 106 98 - 107 mmol/L [facility] Carbon Dioxide 20(L) 22 - 31 mmol/L [facility] Anion Gap 12 5 - 15 mmol/L [facility] Calcium 7.6(L) 8.5 - 10.5 mg/dL [facility] Est Glomerular Filtration Rate 29(L) >=60 mL/min/1. 73 m?? [facility] Comment: The eGFR was calculated using the CKD-EPI equation. As with all creatinine based estimates of kidney function, eGFR values calculated with the CKD-EPI equation are not accurate in patients with acute kidney failure, extremes of body mass or the acutely ill. [email or web address] [email or web address] eGFR 34(L) >=60 mL/min/1. 73 m?? [facility] Comment: The eGFR was calculated using the CKD-EPI equation. As with all creatinine based estimates of kidney function, eGFR values calculated with the CKD-EPI equation are not accurate in patients with acute kidney failure, extremes of body mass or the acutely ill. [email or web address] Blood specimen (specimen) 04/14/2018 5:48 AM EDT 04/14/2018 5:59 AM EDT Narrative Resulting Agency Comment Spec In Lab Hay Sparks MD CHEMISTRY ORDERABLES [facility] [place] [address] * Differential, Automated (04/13/2018 8:14 AM EDT) Neutrophil % 66.0 % [facility] Neutrophil Absolute 3.49 1.70 - 6.10 x10(3)/[facility] Lymph % 16.3 % [facility] Lymphocytes Abs 0.9 0.9 - 3.2 x10(3)/[facility] Monocyte % 10.4 % [facility] Monocyte Abs 0.6 0.3 - 0.9 x10(3)/[facility] Eos % 6.3 % [facility] Eosinophils Abs 0.3 0.0 - 0.4 x10(3)/[facility] Basophil % 0.4 % [facility] Baso Absolute 0.0 0.0 - 0.1 x10(3)/[facility] Immature Gran % 0.60 % [facility] Comment: Immature granulocytes(IG's)percentage and absolute count will include metamyelocytes, myelocytes, and promyelocytes. Blood smears from CBCs yielding IG's will be scanned manually for concordance. If this scan disagrees with the automated IG or if promyelocytes are noted, a manual differential will be performed. Immature Gran Absolute 0.03 0.00 - 0.04 x10(3)/[facility] Blood specimen (specimen) 04/13/2018 8:14 AM EDT 04/13/2018 8:21 AM EDT Narrative Resulting Agency Comment Spec In Lab Apple Gutierrez MD HEMATOLOGY ORDERABLE S [facility] [place] [address] * (ABNORMAL) Hemogram (04/13/2018 8:14 AM EDT) White Blood Cell 5.3 4.0 - 9.5 x10(3)/mc L [facility] Red Blood Cell 2.53(L) 4.58 - 5.54 x10(6)/ L [facility] Hemoglobin 7.8(L) 13.7 - 16.5 gm/dL [facility] Hematocrit 23.3(L) 40.5 - 48.5 % [facility] Mean Cell Volume 92.1 82.9 - 93.1 fL [facility] Mean Cell Hemoglobin 30.8 27.5 - 32.1 pg [facility] Mean Cell Hemoglobin Concentration 33.5 32.0 - 35.7 gm/dL [facility] Platelet 190 145 - 357 x10(3)/ L [facility] RDW Standard Deviation 53.5(H) 36.0 - 45.0 fL [facility] RDW coefficient of variation 15.9(H) 11.4 - 13.8 % [facility] Mean Platelet Volume 8.2 7.6 - 12.9 fL [facility] NRBC% auto 0.0 % [facility] NRBC Absolute 0.000 0.000 - 0.000 x10(3)/mc L [facility] Blood specimen (specimen) 04/13/2018 8:14 AM EDT 04/13/2018 8:21 AM EDT Narrative Resulting Agency Comment Spec In Lab Apple Gutierrez MD HEMATOLOGY ORDERABLE S Performing Organization Address [facility]/ZIP Co de Phone Number [facility] [place] [address] * APTT (04/13/2018 8:14 AM EDT) Partial Thromboplastin Time 29 25 - 37 sec [facility] Comment: The PTT is NOT appropriate for heparin monitoring. Use the Anti-Xa level for heparin monitoring (HEP UFH) or LMWH monitoring (HEP LMW). A PTT less than 37 seconds generally indicates adequate hemostasis. Blood specimen (specimen) 04/13/2018 8:14 AM EDT 04/13/2018 8:21 AM EDT Narrative Resulting Agency Comment Spec In Lab Chase Olvera MD HEMATOLOGY ORDERA BLES [facility] [place] [address] * (ABNORMAL) Prothrombin Time (04/13/2018 8:14 AM EDT) Prothrombin Time 17.3(H) 9.4 - 12.5 sec [facility] International Normalization Ratio 1.6 [facility] Comment: An INR <2.0 indicates [...] depending on clinical circumstances. Blood specimen (specimen) 04/13/2018 8:14 AM EDT 04/13/2018 8:21 AM EDT Narrative Resulting Agency Comment Spec In Lab Chase Olvera MD HEMATOLOGY ORDERA BLES [facility] [place] [address] * (ABNORMAL) Basic Metabolic Panel (non-fasting) (04/13/2018 8:14 AM EDT) Glucose 108 65 - 199 mg/dL [facility] Comment:Diabetes: >=200 mg/d L plus symptoms Blood Urea Nitrogen 30(H) 10 - 20 mg/dL [facility] Creatinine 2.28(H) 0.80 - 1.50 mg/dL [facility] Sodium 138 135 - 145 mmol/L [facility] Potassium 4.5 3.5 - 5.0 mmol/L [facility] Comment: Please note: ??Patients with WBC >100,000 may have falsely elevated Potassium levels. ??For accurate Potassium quantification in these patients send serum separator tube (gold top) for subsequent determinations. ??Contact the Clinical Chemistry Laboratory if there are any questions. Chloride 104 98 - 107 mmol/L [facility] Carbon Dioxide 20(L) 22 - 31 mmol/L [facility] Anion Gap 14 5 - 15 mmol/L [facility] Calcium 7.7(L) 8.5 - 10.5 mg/dL [facility] Est Glomerular Filtration Rate 31(L) >=60 mL/min/1. 73 m?? [facility] Comment: The eGFR was calculated using the CKD-EPI equation. As with all creatinine based estimates of kidney function, eGFR values calculated with the CKD-EPI equation are not accurate in patients with acute kidney failure, extremes of body mass or the acutely ill. [email or web address] eGFR 36(L) >=60 mL/min/1. 73 m?? [facility] Comment: The eGFR was calculated using the CKD-EPI equation. As with all creatinine based estimates of kidney function, eGFR values calculated with the CKD-EPI equation are not accurate in patients with acute kidney failure, extremes of body mass or the acutely ill. [email or web address] Blood specimen (specimen) 04/13/2018 8:14 AM EDT 04/13/2018 8:21 AM EDT Narrative Resulting Agency Comment Spec In Lab Hay Sparks MD CHEMISTRY ORDERABLES Performing Organization Address [facility] de Phone Number [facility] [place] [address] * Tacrolimus level (04/13/2018 8:14 AM EDT) Tacrolimus <2.0 ng/mL [facility] Comment: Trough therapeutic: ??5-15 ng/mL Performed by ultra-performance liquid chromatography tandem mass spectrometry (UPLCMS/MS). This test was developed and its performance characteristics determined by [facility]. It has not been cleared or approved by the FDA. The laboratory is regulated under CLIA as qualified to perform high-complexity testing. This test is used for clinical purposes. It should not be regarded as investigational or for research. Blood specimen (specimen) 04/13/2018 8:14 AM EDT 04/13/2018 9:55 AM EDT Narrative Resulting Agency Comment Spec In Lab Chase Olvera MD CHEMISTRY ORDERAB LES Performing Organization Address [facility] Co de Phone Number [facility] [place] [address] * (ABNORMAL) Protein/Creatinine Ratio, urine (04/13/2018 3:45 AM EDT) Creatinine, Urine 51 mg/dL [facility] Protein, Urine 373(H) 0 - 12 mg/dL [facility] Protein / Creatinine Ratio, Urine 7.3 ratio [facility] Urine specimen (specimen) 04/13/2018 3:45 AM EDT 04/13/2018 3:55 AM EDT Narrative Resulting Agency Comment Spec In Lab Chase Olvera MD URINE ORDERABLES Performing Organization Address [facility] Co de Phone Number [facility] [place] [address] * (ABNORMAL) Urinalysis Microscopic Exam (04/13/2018 1:51 AM EDT) RBC, Urine 4(H) 0 - 3 /HPF [facility] WBC, Urine 1 0 - 3 /HPF [facility] Transitional Epithelial Cells, Urine <1 <=1 /HPF [facility] Hyaline Casts, Urine 4(H) 0 - 2 /LPF [facility] Urine specimen obtained by clean catch procedure (specimen) 04/13/2018 1:51 AM EDT 04/13/2018 1:58 AM EDT Narrative Resulting Agency Comment Spec In Lab Rasta Hernández MD URINE ORDERABLES Performing Organization Address [facility] Co de Phone Number [facility] [place] [address] * (ABNORMAL) Urinalysis with reflex Culture (04/13/2018 1:51 AM EDT) Glucose, Urine Dipstick Negative Negative mg/dL [facility] Protein, Urine Dipstick >=500(A) Negative mg/dL [facility] Bilirubin, Urine Dipstick Negative Negative mg/dL [facility] Comment: Clinical correlation required for positive Urine Bilirubin results as false positive may occur with some drugs and drug related products. If a false positive is suspected a serum total bilirubin should be considered if clinically indicated. Urobilinogen, Urine Dipstick Normal Normal mg/dL [facility] pH, Urn (dipstick) 7.0 5.0 - 8.0 [facility] Blood, Urine Dipstick Negative Negative mg/dL [facility] Ketone, Urine Dipstick Negative Negative mg/dL [facility] Nitrite, Urine Dipstick Negative Negative [facility] Leukocytes, Urine Dipstick Negative Negative [facility] LAB[facility]ATORY Appearance, Urine Dipstick Clear Clear [facility] Specific [place] Urine Automated 1.017 1.002 - 1.030 [facility] Color, Urine Dipstick Yellow Yellow [facility] Reflex to Culture No [facility] Urine specimen obtained by clean catch procedure (specimen) 04/13/2018 1:51 AM EDT 04/13/2018 1:58 AM EDT Narrative Resulting Agency Comment Spec In Lab Chase Olvera MD URINE ORDERABLES Performing Organization Address City/State/[facility] Co de Phone Number [facility] [place] [address] * MRI Angiogram Neck wo Contrast (04/12/2018 4:15 PM EDT) Anatomical Region Laterality Modality Neck Magnetic Resonan ce Impressions 04/12/2018 5:27 PM EDT Normal MRA of the head and neck. I have personally reviewed the image(s) and the residents interpretation and agree with the findings, Sabrina Chacko MD at 04/12/2018 5:27 PM Narrative 04/12/2018 5:27 PM EDT EXAMINATION: MRI ANGIOGRAM HEAD WO CONTRAST (GENERIC), MRI ANGIOGRAM NECK WO CONTRAST CLINICAL HISTORY: question intra cranial atherosclerosis, NO CONTRAST TECHNIQUE: MRA of the [place] and MRA of the neck were performed without IV contrast, with cthn-vg-ysmimh technique. ?? COMPARISON: MR head 04/07/2018 FINDINGS: MRA [place]: The intracranial internal carotid arteries, vertebral arteries, basilar artery, superior cerebellar arteries are normal in course and caliber. The bilateral MARCUS, MCA, and SENIOR APPLICATIONS ARCHITECT are normal in course and caliber. No focal stenosis caliber change or aneurysm.. MRA neck: Oxoj-tg-xqhsog imaging excludes the arch. Vertebral arteries, common carotid arteries, bilateral ECA, ICA are normal in course and caliber. Procedure Note Sabrina Vargas MD - 04/12/2018 EXAMINATION: MRI ANGIOGRAM HEAD WO CONTRAST (GENERIC), MRI ANGIOGRAM NECKWO CONTRAST CLINICAL HISTORY: question intra cranial atherosclerosis, NO CONTRAST TECHNIQUE: MRA of the [place] and MRA of the neck were performed withoutIV contrast, with dake-lz-cchyhf technique. COMPARISON: MR head 04/07/2018 FINDINGS: MRA [place]: The intracranial internal carotid arteries, vertebral arteries, basilarartery, superior cerebellar arteries are normal in course and caliber. Thebilateral MARCUS, MCA, and SENIOR APPLICATIONS ARCHITECT are normal in course and caliber. No focal stenosiscaliber change or aneurysm.. MRA neck: Npav-on-zxkiby imaging excludes the arch. Vertebral arteries, common carotid arteries, bilateral ECA, ICA are normalin course and caliber. IMPRESSION Normal MRA of the head and neck. I have personally reviewed the image(s) and the residents interpretationand agree with the findings, Sabrina Chacko MD at 04/12/2018 5:27 PM 5:27 PM Chase Olvera MD IMG MRI ORDERABLE S * MRI Angiogram Head wo Contrast (Generic) (04/12/2018 4:15 PM EDT) Anatomical Region Laterality Modality Head Magnetic Resonan ce Impressions 04/12/2018 5:27 PM EDT Normal MRA of the head and neck. I have personally reviewed the image(s) and the residents interpretation and agree with the findings, Sabrina Chacko MD at 04/12/2018 5:27 PM Narrative 04/12/2018 5:27 PM EDT EXAMINATION: MRI ANGIOGRAM HEAD WO CONTRAST (GENERIC), MRI ANGIOGRAM NECK WO CONTRAST CLINICAL HISTORY: question intra cranial atherosclerosis, NO CONTRAST TECHNIQUE: MRA of the [place] and MRA of the neck were performed without IV contrast, with pywt-qh-hwlbbb technique. ?? COMPARISON: MR head 04/07/2018 FINDINGS: MRA [place]: The intracranial internal carotid arteries, vertebral arteries, basilar artery, superior cerebellar arteries are normal in course and caliber. The bilateral MARCUS, MCA, and SENIOR APPLICATIONS ARCHITECT are normal in course and caliber. No focal stenosis caliber change or aneurysm.. MRA neck: Wlnn-aa-oaivfa imaging excludes the arch. Vertebral arteries, common carotid arteries, bilateral ECA, ICA are normal in course and caliber. Procedure Note Sabrina Vargas MD - 04/12/2018 EXAMINATION: MRI ANGIOGRAM HEAD WO CONTRAST (GENERIC), MRI ANGIOGRAM NECKWO CONTRAST CLINICAL HISTORY: question intra cranial atherosclerosis, NO CONTRAST TECHNIQUE: MRA of the [place] and MRA of the neck were performed withoutIV contrast, with cdla-rf-aehqpe technique. COMPARISON: MR head 04/07/2018 FINDINGS: MRA [place]: The intracranial internal carotid arteries, vertebral arteries, basilarartery, superior cerebellar arteries are normal in course and caliber. Thebilateral MARCUS, MCA, and SENIOR APPLICATIONS ARCHITECT are normal in course and caliber. No focal stenosiscaliber change or aneurysm.. MRA neck: Yxhi-vs-ddjazm imaging excludes the arch. Vertebral arteries, common carotid arteries, bilateral ECA, ICA are normalin course and caliber. IMPRESSION Normal MRA of the head and neck. I have personally reviewed the image(s) and the residents interpretationand agree with the findings, Sabrina Chacko MD at 04/12/2018 5:27 PM 5:27 PM Chase Olvera MD IMG MRI ORDERABLE S * Gold Tube HOLD (04/12/2018 8:40 AM EDT) [facility] Gold Hold Sample in lab. [facility] Blood specimen (specimen) Venous Draw / Unknown 04/12/2018 8:40 AM EDT 04/12/2018 9:16 AM EDT Apple Gutierrez MD CHEMISTRY ORDERABLES [facility] [place] [address] * (ABNORMAL) Differential, Automated (04/12/2018 8:40 AM EDT) Neutrophil % 65.6 % [facility] Neutrophil Absolute 3.27 1.70 - 6.10 x10(3)/mc L [facility] Lymph % 15.6 % [facility] Lymphocytes Abs 0.8(L) 0.9 - 3.2 x10(3)/ L [facility] Monocyte % 11.0 % [facility] Monocyte Abs 0.6 0.3 - 0.9 x10(3)/ L [facility] Eos % 6.6 % [facility] Eosinophils Abs 0.3 0.0 - 0.4 x10(3)/ L [facility] Basophil % 0.6 % [facility] Baso Absolute 0.0 0.0 - 0.1 x10(3)/ L [facility] Immature Gran % 0.60 % [facility] Comment: Immature granulocytes(IG's)percentage and absolute count will include metamyelocytes, myelocytes, and promyelocytes. Blood smears from CBCs yielding IG's will be scanned manually for concordance. If this scan disagrees with the automated IG or if promyelocytes are noted, a manual differential will be performed. Immature Gran Absolute 0.03 0.00 - 0.04 x10(3)/mc L [facility] Blood specimen (specimen) 04/12/2018 8:40 AM EDT 04/12/2018 9:15 AM EDT Narrative Resulting Agency Comment Spec In Lab Apple Gutierrez MD HEMATOLOGY ORDERABLE S [facility] [place] [address] * (ABNORMAL) Hemogram (04/12/2018 8:40 AM EDT) White Blood Cell 5.0 4.0 - 9.5 x10(3)/ L [facility] Red Blood Cell 2.60(L) 4.58 - 5.54 x10(6)/[facility] LABORATORY Hemoglobin 7.9(L) 13.7 - 16.5 gm/dL [facility] Hematocrit 24.0(L) 40.5 - 48.5 % [facility] Mean Cell Volume 92.3 82.9 - 93.1 fL [facility] Mean Cell Hemoglobin 30.4 27.5 - 32.1 pg [facility] Mean Cell Hemoglobin Concentration 32.9 32.0 - 35.7 gm/dL [facility] Platelet 183 145 - 357 x10(3)/[facility] LABORATORY RDW Standard Deviation 54.2(H) 36.0 - 45.0 [facility] LABORATORY RDW coefficient of variation 16.0(H) 11.4 - 13.8 % [facility] Mean Platelet Volume 8.8 7.6 - 12.9 [facility] LABORATORY NRBC% auto 0.0 % [facility] NRBC Absolute 0.000 0.000 - 0.000 x10(3)/[facility] LABORATORY Blood specimen (specimen) 04/12/2018 8:40 AM EDT 04/12/2018 9:15 AM EDT Narrative Resulting Agency Comment Spec In Lab Apple Gutierrez MD HEMATOLOGY ORDERABLE S [facility] [place] [address] * APTT (04/12/2018 8:40 AM EDT) [facility] Partial Thromboplastin Time 32 25 - 37 sec [facility] Comment: The PTT is NOT appropriate for heparin monitoring. Use the Anti-Xa level for heparin monitoring (HEP UFH) or LMWH monitoring (HEP LMW). A PTT less than 37 seconds generally indicates adequate hemostasis. Blood specimen (specimen) 04/12/2018 8:40 AM EDT 04/12/2018 9:15 AM EDT Narrative Resulting Agency Comment Spec In Lab Chase Olvera MD HEMATOLOGY ORDERA BLES Performing Organization Address [facility] de Phone Number [facility] [place] [address] * (ABNORMAL) Prothrombin Time (04/12/2018 8:40 AM EDT) Prothrombin Time 20.0(H) 9.4 - 12.5 sec [facility] International Normalization Ratio 1.8 [facility] Comment: An INR <2.0 indicates [...] depending on clinical circumstances. Blood specimen (specimen) 04/12/2018 8:40 AM EDT 04/12/2018 9:15 AM EDT Narrative Resulting Agency Comment Spec In Lab Chase Olvera MD HEMATOLOGY ORDERA BLES Performing Organization Address [facility] Co de Phone Number [facility] [place] [address] * (ABNORMAL) Basic Metabolic Panel (non-fasting) (04/12/2018 8:40 AM EDT) Glucose 113 65 - 199 mg/dL [facility] Comment:Diabetes: >=200 mg/d L plus symptoms Blood Urea Nitrogen 31(H) 10 - 20 mg/dL [facility] Creatinine 2.35(H) 0.80 - 1.50 mg/dL [facility] Sodium 140 135 - 145 mmol/L [facility] Potassium 4.4 3.5 - 5.0 mmol/L [facility] Comment: Please note: ??Patients with WBC >100,000 may have falsely elevated Potassium levels. ??For accurate Potassium quantification in these patients send serum separator tube (gold top) for subsequent determinations. ??Contact the Clinical Chemistry Laboratory if there are any questions. Chloride 106 98 - 107 mmol/L [facility] Carbon Dioxide 20(L) 22 - 31 mmol/L [facility] Anion Gap 14 5 - 15 mmol/L [facility] Calcium 7.4(L) 8.5 - 10.5 mg/dL [facility] Est Glomerular Filtration Rate 30(L) >=60 mL/min/1. 73 m?? [facility] Comment: The eGFR was calculated using the CKD-EPI equation. As with all creatinine based estimates of kidney function, eGFR values calculated with the CKD-EPI equation are not accurate in patients with acute kidney failure, extremes of body mass or the acutely ill. [email or web address] [email or web address]/[email or web address]EAUnkf eGFR 35(L) >=60 mL/min/1. 73 m?? [facility] Comment: The eGFR was calculated using the CKD-EPI equation. As with all creatinine based estimates of kidney function, eGFR values calculated with the CKD-EPI equation are not accurate in patients with acute kidney failure, extremes of body mass or the acutely ill. [email or web address] [email or web address] Blood specimen (specimen) 04/12/2018 8:40 AM EDT 04/12/2018 9:15 AM EDT Narrative Resulting Agency Comment Spec In Lab Hay Sparks MD CHEMISTRY ORDERABLES [facility] [place] [address] * ECHO COMPLETE (04/11/2018 2:53 PM EDT) EF 65 [facility]ART[facility] SYSTEM Anatomical Region Laterality Modality Other 04/11/2018 Narrative 04/11/2018 3:21 PM EDT Amended Report Procedure: ?Transthoracic Echocardiogram Patient: ?ARNOL HARRISON Ginna ? (Age): 1960(57y) Med Rec#: ? [id number] ?Sex: ?M ? Site Loc: ? [facility] ?Ht / Wt: ??178(cm)/91.6(kg Pt. Loc: ?Adult Floor ? BSA: ?2.1 Study Date: ?? 04/11/2018 ?Pt. Type: Outpatient Tape: ? 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 179/97 SUMMARY: 1. Mild concentric left ventricular hypertrophy is observed. There is normal global left ventricular systolic function. ??Ejection fraction is estimated to be 65%. There are no left ventricular segmental wall motion abnormalities. 2. Right ventricular chamber size, wall thickness, and systolic function are within normal limits. 3. There is no hemodynamically significant valve disease. 4. There is no evidence of a patent foramen ovale by either color Doppler or agitated saline injection. 5. See remainder of report for additional findings. Findings ? : Study Quality: ? Adequate Left Ventricle: ? The left ventricular chamber size is normal. ?Mild concentric left ventricular hypertrophy is observed. ?There is no evidence of LVOT obstruction. ?No ventricular septal defect is visualized. ?There is normal global left ventricular systolic function. ??Ejection fraction is estimated to be 65%. ?There are no left ventricular segmental wall motion abnormalities. ?Assessment of diastolic function is indeterminate. ?Left sided filling pressure could not be assessed by Doppler. Left Atrium: ? The left atrium is severely dilated. ?There is no evidence of a patent foramen ovale by either color Doppler or agitated saline injection. Right Ventricle: ? Right ventricular chamber size, wall thickness, and systolic function are within normal limits. ?The estimated pulmonary artery systolic pressure is 41 mmHg. ?The estimated right atrial pressure is 3 mmHg. Right Atrium: ? The right atrium appears normal. Aortic Valve: ? The aortic valve is trileaflet. The leaflets are thin with normal excursion. There is no aortic stenosis or regurgitation present. Mitral Valve: ? The mitral valve appears normal in structure and function. ?There is trace mitral regurgitation present. Tricuspid Valve: ? The tricuspid valve appears normal in structure and function. ?There is trace tricuspid regurgitation present. Pulmonic Valve: ? The pulmonic valve appears normal in structure and function. Pericardium: ? The pericardium appears normal and there is no evidence of a pericardial effusion. Aorta: ? The aortic root is normal in size. ?The ascending aorta is normal in size. ?There is no evidence of coarctation of the aorta. Pulmonary Artery: ? The main pulmonary artery appears normal. Venous: ? The inferior vena cava appears normal in size. ?There is a greater than 50% respiratory change in the inferior vena cava dimension. Misc: ? There is no hemodynamically significant valve disease. ?See remainder of report for additional findings. ?Two-dimensional echo, spectral Doppler and color Doppler performed. Volumes/Mass ?Value ?Units (Range) ? LA Area 4 CH ?31.7 ? cm2 (<21) ? LA ESV BP (A/L) inde65 ? ml/m2 ? RA AREA 4CH ? 16.5 ? cm2 ? Tricuspid Valve ?Value ?Units (Range) ? TR Vmax ? 3.1 ?m/sec ? TR peak gradient ?38.4 ? mmHg ? RAP ? 3 ?mmHg ? RVSP ?41 ? mmHg ? Wall Motion: Segment Name ?Rest ? Base-Anteroseptal ?? Normal ? Base-Anterior ? Normal ? Base-Anterolateral ??Normal ? Base-Posterolateral Normal ? Base-Inferior ? Normal ? Base-Inferoseptal ?? Normal ? Mid-Anteroseptal ?Normal ? Mid-Anterior ?Normal ? Mid-Anterolateral ?? Normal ? Mid-Posterolateral ??Normal ? Mid-Inferior ?Normal ? Mid-Inferoseptal ?Normal ? [place]-Septal ? Normal ? [place]-Anterior ? Normal ? [place]-Lateral ?Normal ? [place]-Inferior ? Normal ? [place]-Tip ?Normal ? This report has been electronically signed by: Tim Estrella M.D. ? 04/11/2018 15:21:34 Images reviewed and interpretation verified [facility] Cardiac Ultrasound Laboratory Procedure Note Tmi Estrella MD - 04/11/2018 Amended Report Procedure: Transthoracic Echocardiogram Patient: ARNOL Chacko DOB(Age): 1960(57y) Med Rec#: [id number] Sex: M Site Loc: [facility] Ht / Wt: 178(cm)/91.6(kg Pt. Loc: Adult Floor BSA: 2.1 Study Date: 04/11/2018 Pt. 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 Mild concentric left ventricular hypertrophy is observed. There is normal global left ventricular systolic function. Ejection fraction is estimated to be 65%. There are no left ventricular segmental wall motion abnormalities. 2. Right ventricular chamber size, wall thickness, and systolic function are within normal limits. 3. There is no hemodynamically significant valve disease. 4. There is no evidence of a patent foramen ovale by either color Doppler or agitated saline injection. 5. See remainder of report for additional findings. Findings : Study Quality: Adequate Left Ventricle: The left ventricular chamber size is normal. Mild concentric left ventricular hypertrophy is observed. There is no evidence of LVOT obstruction. No ventricular septal defect is visualized. There is normal global left ventricular systolic function. Ejection fraction is estimated to be 65%. There are no left ventricular segmental wall motion abnormalities. Assessment of diastolic function is indeterminate. Left sided filling pressure could not be assessed by Doppler. Left Atrium: The left atrium is severely dilated. There is no evidence of a patent foramen ovale by either color Doppler or agitated saline injection. Right Ventricle: Right ventricular chamber size, wall thickness, and systolic function are within normal limits. The estimated pulmonary artery systolic pressure is 41 mmHg. The estimated right atrial pressure is 3 mmHg. Right Atrium: The right atrium appears normal. Aortic Valve: The aortic valve is trileaflet. The leaflets are thin with normal excursion. There is no aortic stenosis or regurgitation present. Mitral Valve: The mitral valve appears normal in structure and function. There is trace mitral regurgitation present. Tricuspid Valve: The tricuspid valve appears normal in structure and function. There is trace tricuspid regurgitation present. Pulmonic Valve: The pulmonic valve appears normal in structure and function. Pericardium: The pericardium appears normal and there is no evidence of a pericardial effusion. Aorta: The aortic root is normal in size. The ascending aorta is normal in size. There is no evidence of coarctation of the aorta. Pulmonary Artery: The main pulmonary artery appears normal. Venous: The inferior vena cava appears normal in size. There is a greater than 50% respiratory change in the inferior vena cava dimension. Misc: There is no hemodynamically significant valve disease. See remainder of report for additional findings. Two-dimensional echo, spectral Doppler and color Doppler performed. Volumes/Mass Value Units (Range) LA Area 4 CH 31.7 cm2 (<21) LA ESV BP (A/L) inde65 ml/m2 RA AREA 4CH 16.5 cm2 Tricuspid Valve Value Units (Range) TR Vmax 3.1 m/sec TR peak gradient 38.4 mmHg RAP 3 mmHg RVSP 41 mmHg Wall Motion: Segment Name Rest Base-Anteroseptal Normal Base-Anterior Normal Base-Anterolateral Normal Base-Posterolateral Normal Base-Inferior Normal Base-Inferoseptal Normal Mid-Anteroseptal Normal Mid-Anterior Normal Mid-Anterolateral Normal Mid-Posterolateral Normal Mid-Inferior Normal Mid-Inferoseptal Normal [place]-Septal Normal [place]-Anterior Normal [place]-Lateral Normal [place]-Inferior Normal [place]-Tip Normal This report has been electronically signed by: Tim Estrella M.D. 04/11/2018 15:21:34 Images reviewed and interpretation verified [facility] Cardiac Ultrasound Laboratory Lida Peter MD ECHO ORDERABLES * ABORH Recheck Status (04/11/2018 6:28 AM EDT) ABORH Type Recheck Completed [facility] Blood specimen (specimen) 04/11/2018 6:28 AM EDT 04/11/2018 6:28 AM EDT Narrative Resulting Agency Comment Spec In Lab Hanny Wiseman MD BLOOD BANK LAB ORDER KELLY [facility] [place] [address] * Antibody screen (04/11/2018 6:28 AM EDT) Ab Screen Interp Negative [facility] Expires at [id number] on: 04/14/2018 [facility] Blood specimen (specimen) 04/11/2018 6:28 AM EDT 04/11/2018 6:28 AM EDT Narrative Resulting Agency Comment Spec In Lab Hanny Wiseman MD BLOOD BANK LAB ORDER KELLY [facility] [place] [address] * ABO/Rh Typing (04/11/2018 6:28 AM EDT) ABORH Type A Pos [facility] Blood specimen (specimen) 04/11/2018 6:28 AM EDT 04/11/2018 6:28 AM EDT Narrative Resulting Agency Comment Spec In Lab Hanny Wiseman MD BLOOD BANK LAB ORDER KELLY Performing Organization Address [facility]/ZIP Co de Phone Number [facility] [place] [address] * (ABNORMAL) Differential, Automated (04/11/2018 5:55 AM EDT) Pathologist [facility] Neutrophil % 68.9 % [facility] Neutrophil Absolute 3.90 1.70 - 6.10 x10(3)/mc L [facility] Lymph % 14.7 % [facility] Lymphocytes Abs 0.8(L) 0.9 - 3.2 x10(3)/mc L [facility] Monocyte % 10.6 % [facility] Monocyte Abs 0.6 0.3 - 0.9 x10(3)/mc L [facility] Eos % 4.9 % [facility] Eosinophils Abs 0.3 0.0 - 0.4 x10(3)/mc L [facility] Basophil % 0.4 % [facility] Baso Absolute 0.0 0.0 - 0.1 x10(3)/mc L [facility] Immature Gran % 0.50 % [facility] Comment: Immature granulocytes(IG's)percentage and absolute count will include metamyelocytes, myelocytes, and promyelocytes. Blood smears from CBCs yielding IG's will be scanned manually for concordance. If this scan disagrees with the automated IG or if promyelocytes are noted, a manual differential will be performed. Immature Gran Absolute 0.03 0.00 - 0.04 x10(3)/ L [facility] Blood specimen (specimen) 04/11/2018 5:55 AM EDT 04/11/2018 6:03 AM EDT Narrative Resulting Agency Comment Spec In Lab Apple Gutierrez MD HEMATOLOGY ORDERABLE S [facility] [place] [address] * (ABNORMAL) Hemogram (04/11/2018 5:55 AM EDT) White Blood Cell 5.7 4.0 - 9.5 x10(3)/[facility] LABORATORY Red Blood Cell 2.44(L) 4.58 - 5.54 x10(6)/[facility] LABORATORY Hemoglobin 7.4(L) 13.7 - 16.5 gm/dL [facility] Hematocrit 22.2(L) 40.5 - 48.5 % [facility] Mean Cell Volume 91.0 82.9 - 93.1 [facility] LABORATORY Mean Cell Hemoglobin 30.3 27.5 - 32.1 pg [facility] Mean Cell Hemoglobin Concentration 33.3 32.0 - 35.7 gm/dL [facility] Platelet 150 145 - 357 x10(3)/[facility] LABORATORY RDW Standard Deviation 52.6(H) 36.0 - 45.0 [facility] LABORATORY RDW coefficient of variation 15.9(H) 11.4 - 13.8 % [facility] Mean Platelet Volume 9.1 7.6 - 12.9 [facility] LABORATORY NRBC% auto 0.0 % [facility] NRBC Absolute 0.000 0.000 - 0.000 x10(3)/ L [facility] Blood specimen (specimen) 04/11/2018 5:55 AM EDT 04/11/2018 6:03 AM EDT Narrative Resulting Agency Comment Spec In Lab Apple Gutierrez MD HEMATOLOGY ORDERABLE S Performing Organization Address [facility]/ZIP Co de Phone Number [facility] [place] [address] * APTT (04/11/2018 5:55 AM EDT) Partial Thromboplastin Time 37 25 - 37 sec [facility] Comment: The PTT is NOT appropriate for heparin monitoring. Use the Anti-Xa level for heparin monitoring (HEP UFH) or LMWH monitoring (HEP LMW). A PTT less than 37 seconds generally indicates adequate hemostasis. Blood specimen (specimen) 04/11/2018 5:55 AM EDT 04/11/2018 6:04 AM EDT Narrative Resulting Agency Comment Spec In Lab Chase Olvera MD HEMATOLOGY ORDERA BLES Performing Organization Address [facility] Co de Phone Number [facility] [place] [address] * (ABNORMAL) Prothrombin Time (04/11/2018 5:55 AM EDT) Prothrombin Time 26.8(H) 9.4 - 12.5 sec [facility] International Normalization Ratio 2.4 [facility] Comment: An INR <2.0 indicates [...] depending on clinical circumstances. Blood specimen (specimen) 04/11/2018 5:55 AM EDT 04/11/2018 6:04 AM EDT Narrative Resulting Agency Comment Spec In Lab Chase Olvera MD HEMATOLOGY ORDERA BLES Performing Organization Address City/[facility] Co de Phone Number [facility] [place] [address] * (ABNORMAL) Basic Metabolic Panel (non-fasting) (04/11/2018 5:55 AM EDT) Glucose 112 65 - 199 mg/dL [facility] Comment:Diabetes: >=200 mg/d L plus symptoms Blood Urea Nitrogen 33(H) 10 - 20 mg/dL [facility] Creatinine 2.33(H) 0.80 - 1.50 mg/dL [facility] Sodium 144 135 - 145 mmol/L [facility] Potassium 4.5 3.5 - 5.0 mmol/L [facility] Comment: Please note: ??Patients with WBC >100,000 may have falsely elevated Potassium levels. ??For accurate Potassium quantification in these patients send serum separator tube (gold top) for subsequent determinations. ??Contact the Clinical Chemistry Laboratory if there are any questions. Chloride 110(H) 98 - 107 mmol/L [facility] Carbon Dioxide 22 22 - 31 mmol/L [facility] Anion Gap 12 5 - 15 mmol/L [facility] Calcium 7.3(L) 8.5 - 10.5 mg/dL [facility] Est Glomerular Filtration Rate 30(L) >=60 mL/min/1. 73 m?? [facility] Comment: The eGFR was calculated using the CKD-EPI equation. As with all creatinine based estimates of kidney function, eGFR values calculated with the CKD-EPI equation are not accurate in patients with acute kidney failure, extremes of body mass or the acutely ill. [email or web address] [email or web address]/[email or web address] eGFR 35(L) >=60 mL/min/1. 73 m?? [facility] Comment: The eGFR was calculated using the CKD-EPI equation. As with all creatinine based estimates of kidney function, eGFR values calculated with the CKD-EPI equation are not accurate in patients with acute kidney failure, extremes of body mass or the acutely ill. [email or web address] Blood specimen (specimen) 04/11/2018 5:55 AM EDT 04/11/2018 6:04 AM EDT Narrative Resulting Agency Comment Spec In Lab Hay Sparks MD CHEMISTRY ORDERABLES [facility] [place] [address] * POCT Glucose (04/10/2018 7:56 AM EDT) [facility] Glucose, POC 119 65 - 199 mg/dL [facility] Comment: Supplemental ranges: <140 mg/dL before meals <180 mg/dL all other times of the day Blood specimen (specimen) 04/10/2018 7:56 AM EDT 04/10/2018 7:56 AM EDT Chase Olvera MD POINT OF CARE SHAZIA T ORDERABLES Performing Organization Address [facility]/ZIP Co de Phone Number [facility] [place] [place] [address] * (ABNORMAL) Differential, Automated (04/10/2018 5:35 AM EDT) [facility] Neutrophil % 72.4 % [facility] Neutrophil Absolute 4.21 1.70 - 6.10 x10(3)/mc L [facility] Lymph % 12.7 % [facility] Lymphocytes Abs 0.7(L) 0.9 - 3.2 x10(3)/mc L [facility] Monocyte % 9.1 % [facility] Monocyte Abs 0.5 0.3 - 0.9 x10(3)/mc L [facility] Eos % 5.0 % [facility] Eosinophils Abs 0.3 0.0 - 0.4 x10(3)/mc L [facility] Basophil % 0.3 % [facility] Baso Absolute 0.0 0.0 - 0.1 x10(3)/mc L [facility] Immature Gran % 0.50 % [facility] Comment: Immature granulocytes(IG's)percentage and absolute count will include metamyelocytes, myelocytes, and promyelocytes. Blood smears from CBCs yielding IG's will be scanned manually for concordance. If this scan disagrees with the automated IG or if promyelocytes are noted, a manual differential will be performed. Immature Gran Absolute 0.03 0.00 - 0.04 x10(3)/mc L [facility] Blood specimen (specimen) 04/10/2018 5:35 AM EDT 04/10/2018 6:09 AM EDT Narrative Resulting Agency Comment Spec In Lab Apple Gutierrez MD HEMATOLOGY ORDERABLE S [facility] [place] [address] * (ABNORMAL) Hemogram (04/10/2018 5:35 AM EDT) White Blood Cell 5.8 4.0 - 9.5 x10(3)/mc L [facility] Red Blood Cell 2.44(L) 4.58 - 5.54 x10(6)/mc L [facility] Hemoglobin 7.3(L) 13.7 - 16.5 gm/dL [facility] Hematocrit 22.0(L) 40.5 - 48.5 % [facility] Mean Cell Volume 90.2 82.9 - 93.1 fL [facility] Mean Cell Hemoglobin 29.9 27.5 - 32.1 pg [facility] Mean Cell Hemoglobin Concentration 33.2 32.0 - 35.7 gm/dL [facility] Platelet 105(L) 145 - 357 x10(3)/mc L [facility] RDW Standard Deviation 52.6(H) 36.0 - 45.0 [facility] RDW coefficient of variation 15.9(H) 11.4 - 13.8 % [facility] Mean Platelet Volume 9.6 7.6 - 12.9 fL [facility] NRBC% auto 0.0 % [facility] NRBC Absolute 0.000 0.000 - 0.000 x10(3)/mc L [facility] Blood specimen (specimen) 04/10/2018 5:35 AM EDT 04/10/2018 6:09 AM EDT Narrative Resulting Agency Comment Spec In Lab Apple Gutierrez MD HEMATOLOGY ORDERABLE S Performing Organization Address [facility] Co de Phone Number [facility] [place] [address] * APTT (04/10/2018 5:35 AM EDT) Partial Thromboplastin Time 36 25 - 37 sec [facility] Comment: The PTT is NOT appropriate for heparin monitoring. Use the Anti-Xa level for heparin monitoring (HEP UFH) or LMWH monitoring (HEP LMW). A PTT less than 37 seconds generally indicates adequate hemostasis. Blood specimen (specimen) 04/10/2018 5:35 AM EDT 04/10/2018 6:09 AM EDT Narrative Resulting Agency Comment Spec In Lab Chase Olvera MD HEMATOLOGY ORDERA BLES Performing Organization Address [facility] de Phone Number [facility] [place] [address] * (ABNORMAL) Prothrombin Time (04/10/2018 5:35 AM EDT) Prothrombin Time 28.7(H) 9.4 - 12.5 sec [facility] International Normalization Ratio 2.6 [facility] Comment: An INR <2.0 indicates [...] depending on clinical circumstances. Blood specimen (specimen) 04/10/2018 5:35 AM EDT 04/10/2018 6:09 AM EDT Narrative Resulting Agency Comment Spec In Lab Chase Olvera MD HEMATOLOGY ORDERA BLES [facility] [place] [address] * (ABNORMAL) Basic Metabolic Panel (non-fasting) (04/10/2018 5:35 AM EDT) Glucose 112 65 - 199 mg/dL [facility] Comment:Diabetes: >=200 mg/d L plus symptoms Blood Urea Nitrogen 33(H) 10 - 20 mg/dL [facility] Creatinine 2.59(H) 0.80 - 1.50 mg/dL [facility] Sodium 144 135 - 145 mmol/L [facility] Potassium 4.3 3.5 - 5.0 mmol/L [facility] Comment: Please note: ??Patients with WBC >100,000 may have falsely elevated Potassium levels. ??For accurate Potassium quantification in these patients send serum separator tube (gold top) for subsequent determinations. ??Contact the Clinical Chemistry Laboratory if there are any questions. Chloride 109(H) 98 - 107 mmol/L [facility] Carbon Dioxide 23 22 - 31 mmol/L [facility] Anion Gap 12 5 - 15 mmol/L [facility] Calcium 7.9(L) 8.5 - 10.5 mg/dL [facility] Est Glomerular Filtration Rate 27(L) >=60 mL/min/1. 73 m?? [facility] Comment: The eGFR was calculated using the CKD-EPI equation. As with all creatinine based estimates of kidney function, eGFR values calculated with the CKD-EPI equation are not accurate in patients with acute kidney failure, extremes of body mass or the acutely ill. [email or web address] eGFR 31(L) >=60 mL/min/1. 73 m?? [facility] Comment: The eGFR was calculated using the CKD-EPI equation. As with all creatinine based estimates of kidney function, eGFR values calculated with the CKD-EPI equation are not accurate in patients with acute kidney failure, extremes of body mass or the acutely ill. [email or web address] Blood specimen (specimen) 04/10/2018 5:35 AM EDT 04/10/2018 6:09 AM EDT Narrative Resulting Agency Comment Spec In Lab Hay Sparks MD CHEMISTRY ORDERABLES Performing Organization Address [facility]/ZIP Co de Phone Number [facility] [place] [address] * POCT Glucose (04/09/2018 8:26 PM EDT) Glucose, POC 137 65 - 199 mg/dL [facility] Comment: Supplemental ranges: <140 mg/dL before meals <180 mg/dL all other times of the day Blood specimen (specimen) 04/09/2018 8:26 PM EDT 04/09/2018 8:26 PM EDT Chase Olvera MD POINT OF CARE SHAZIA T ORDERABLES Performing Organization Address [facility] Co de Phone Number [facility] [place] [address] * APTT (04/09/2018 8:25 PM EDT) Partial Thromboplastin Time 37 25 - 37 sec [facility] Comment: The PTT is NOT appropriate for heparin monitoring. Use the Anti-Xa level for heparin monitoring (HEP UFH) or LMWH monitoring (HEP LMW). A PTT less than 37 seconds generally indicates adequate hemostasis. Blood specimen (specimen) 04/09/2018 8:25 PM EDT 04/09/2018 8:30 PM EDT Narrative Resulting Agency Comment Spec In Lab Lida Peter MD HEMATOLOGY ORDERABLE S Performing Organization Address [facility] Co de Phone Number [facility] [place] [address] * (ABNORMAL) Prothrombin Time (04/09/2018 8:25 PM EDT) Prothrombin Time 30.4(H) 9.4 - 12.5 sec [facility] International Normalization Ratio 2.7 [facility] Comment: An INR <2.0 indicates [...] depending on clinical circumstances. Blood specimen (specimen) 04/09/2018 8:25 PM EDT 04/09/2018 8:30 PM EDT Narrative Resulting Agency Comment Spec In Lab Lida Peter MD HEMATOLOGY ORDERABLE S Performing Organization Address [facility] Co de Phone Number [facility] [place] [address] * Transfuse thawed plasma (04/09/2018 6:04 PM EDT) Lida Peter MD NURSING TREATMENT OR DERABLES - BLOOD ADMIN * Transfuse thawed plasma (04/09/2018 4:29 PM EDT) Lida Peter MD NURSING TREATMENT OR DERABLES - BLOOD ADMIN * Transfuse thawed plasma (04/09/2018 1:52 PM EDT) Chase Olvera MD NURSING TREATMENT ORDERABLES - BLOOD ADMIN * Prepare thawed plasma (04/09/2018 11:05 AM EDT) Dispensed? Yes [facility] Blood specimen (specimen) 04/09/2018 11:05 AM EDT 04/09/2018 11:07 AM EDT Lida Peter MD BLOOD BANK PRODUCT O RDERABLES Performing Organization Address [facility] Co de Phone Number [facility] [place] [address] * (ABNORMAL) APTT (04/09/2018 10:03 AM EDT) Partial Thromboplastin Time 39(H) 25 - 37 sec [facility] Comment: The PTT is NOT appropriate for heparin monitoring. Use the Anti-Xa level for heparin monitoring (HEP UFH) or LMWH monitoring (HEP LMW). A PTT less than 37 seconds generally indicates adequate hemostasis. Blood specimen (specimen) 04/09/2018 10:03 AM EDT 04/09/2018 10:13 AM EDT Narrative Resulting Agency Comment Spec In Lab Lida Peter MD HEMATOLOGY ORDERABLE S Performing Organization Address [facility] Co de Phone Number [facility] [place] [address] * (ABNORMAL) Prothrombin Time (04/09/2018 10:03 AM EDT) Prothrombin Time 47.7(H) 9.4 - 12.5 sec [facility] International Normalization Ratio 4.2 [facility] Comment: An INR <2.0 indicates [...] depending on clinical circumstances. Blood specimen (specimen) 04/09/2018 10:03 AM EDT 04/09/2018 10:13 AM EDT Narrative Resulting Agency Comment Spec In Lab Lida Peter MD HEMATOLOGY ORDERABLE S Performing Organization Address [facility]/ZIP Co de Phone Number [facility] [place] [address] * Differential, Automated (04/09/2018 3:05 AM EDT) Neutrophil % 74.9 % [facility] Neutrophil Absolute 6.08 1.70 - 6.10 x10(3)/mcL [facility] Lymph % 12.2 % [facility] Lymphocytes Abs 1.0 0.9 - 3.2 x10(3)/[facility] Monocyte % 8.7 % [facility] Monocyte Abs 0.7 0.3 - 0.9 x10(3)/[facility] Eos % 3.2 % [facility] Eosinophils Abs 0.3 0.0 - 0.4 x10(3)/[facility] Basophil % 0.5 % [facility] Baso Absolute 0.0 0.0 - 0.1 x10(3)/[facility] Immature Gran % 0.50 % [facility] Comment: Immature granulocytes(IG's)percentage and absolute count will include metamyelocytes, myelocytes, and promyelocytes. Blood smears from CBCs yielding IG's will be scanned manually for concordance. If this scan disagrees with the automated IG or if promyelocytes are noted, a manual differential will be performed. Immature Gran Absolute 0.04 0.00 - 0.04 x10(3)/[facility] Blood specimen (specimen) 04/09/2018 3:05 AM EDT 04/09/2018 3:13 AM EDT Narrative Resulting Agency Comment Spec In Lab Apple Gutierrez MD HEMATOLOGY ORDERABLE S [facility] [place] [address] * (ABNORMAL) Hemogram (04/09/2018 3:05 AM EDT) White Blood Cell 8.1 4.0 - 9.5 x10(3)/mc L [facility] Red Blood Cell 2.55(L) 4.58 - 5.54 x10(6)/mc L [facility] Hemoglobin 7.8(L) 13.7 - 16.5 gm/dL [facility] Hematocrit 22.8(L) 40.5 - 48.5 % [facility] Mean Cell Volume 89.4 82.9 - 93.1 fL [facility] Mean Cell Hemoglobin 30.6 27.5 - 32.1 pg [facility] Mean Cell Hemoglobin Concentration 34.2 32.0 - 35.7 gm/dL [facility] Platelet 100(L) 145 - 357 x10(3)/mc L [facility] RDW Standard Deviation 53.7(H) 36.0 - 45.0 fL [facility] RDW coefficient of variation 16.6(H) 11.4 - 13.8 % [facility] Mean Platelet Volume 8.9 7.6 - 12.9 fL [facility] NRBC% auto 0.0 % [facility] NRBC Absolute 0.000 0.000 - 0.000 x10(3)/mc L [facility] Blood specimen (specimen) 04/09/2018 3:05 AM EDT 04/09/2018 3:13 AM EDT Narrative Resulting Agency Comment Spec In Lab Apple Gutierrez MD HEMATOLOGY ORDERABLE S [facility] [place] [address] * (ABNORMAL) Basic Metabolic Panel (non-fasting) (04/09/2018 3:05 AM EDT) Glucose 122 65 - 199 mg/dL [facility] Comment:Diabetes: >=200 mg/d L plus symptoms Blood Urea Nitrogen 44(H) 10 - 20 mg/dL [facility] Creatinine 3.00(H) 0.80 - 1.50 mg/dL [facility] Sodium 146(H) 135 - 145 mmol/L [facility] Potassium 4.9 3.5 - 5.0 mmol/L [facility] Comment: Please note: ??Patients with WBC >100,000 may have falsely elevated Potassium levels. ??For accurate Potassium quantification in these patients send serum separator tube (gold top) for subsequent determinations. ??Contact the Clinical Chemistry Laboratory if there are any questions. Chloride 110(H) 98 - 107 mmol/L [facility] Carbon Dioxide 21(L) 22 - 31 mmol/L [facility] Anion Gap 15 5 - 15 mmol/L [facility] Calcium 7.7(L) 8.5 - 10.5 mg/dL [facility] Est Glomerular Filtration Rate 22(L) >=60 mL/min/1. 73 m?? [facility] Comment: The eGFR was calculated using the CKD-EPI equation. As with all creatinine based estimates of kidney function, eGFR values calculated with the CKD-EPI equation are not accurate in patients with acute kidney failure, extremes of body mass or the acutely ill. [email or web address] [email or web address]/[email or web address] eGFR 26(L) >=60 mL/min/1. 73 m?? [facility] Comment: The eGFR was calculated using the CKD-EPI equation. As with all creatinine based estimates of kidney function, eGFR values calculated with the CKD-EPI equation are not accurate in patients with acute kidney failure, extremes of body mass or the acutely ill. [email or web address] [email or web address]/[email or web address] Blood specimen (specimen) 04/09/2018 3:05 AM EDT 04/09/2018 3:13 AM EDT Narrative Resulting Agency Comment Spec In Lab Hay Sparks MD CHEMISTRY ORDERABLES [facility] [place] [address] * Lavender Tube HOLD (04/08/2018 8:10 PM EDT) Lavender Hold Sample in lab. [facility] Blood specimen (specimen) Venous Draw / Unknown 04/08/2018 8:10 PM EDT 04/08/2018 8:26 PM EDT John Rose MD HEMATOLOGY ORDERABLE S [facility] [place] [address] * (ABNORMAL) Phenytoin level, total and free (04/08/2018 8:10 PM EDT) Phenytoin 7.3(L) 10.0 - 20.0 mg/L [facility] Comment: Theraputic range: ??10-20 mg/L Toxic: ??> 25 mg/L Patients with renal dysfunction (e.g.creatinine clearance < 30 mls/min) may show falsely elevated results due to accumulation of metabolites in renal failure Phenytoin, Free 0.95(L) 1.00 - 2.00 mg/L [facility] Comment: Therapeutic range: ? Free phenytoin: ??1.00-2.00 mg/L ? % Free phenytoin: ??8-12% Toxic range: ? Free phenytoin: ??>3.00 mg/L This test was developed and its performance characteristics determined by [facility]. It has not been cleared or approved by the FDA. The laboratory is regulated under CLIA as qualified to perform high-complexity testing. This test is used for clinical purposes. It should not be regarded as investigational or for research. Phenyt Free % 13(H) 8 - 12 % [facility] Comment: This test was developed and its performance characteristics determined by [facility]. It has not been cleared or approved by the FDA. The laboratory is regulated under CLIA as qualified to perform high-complexity testing. This test is used for clinical purposes. It should not be regarded as investigational or for research. Blood specimen (specimen) 04/08/2018 8:10 PM EDT 04/08/2018 8:25 PM EDT Narrative Resulting Agency Comment Spec In Lab Lida Peter MD CHEMISTRY ORDERABLES Performing Organization Address [facility]/ZIP Co de Phone Number [facility] [place] [address] * Transfuse RBC (04/08/2018 4:59 PM EDT) Lida Peter MD NURSING TREATMENT OR DERABLES - BLOOD ADMIN * Transfuse RBC (04/08/2018 4:59 PM EDT) Lida Peter MD NURSING TREATMENT OR DERABLES - BLOOD ADMIN * EEG awake, asleep, drowsy, routine (04/08/2018 3:45 PM EDT) Narrative Beth Colunga - 04/08/2018 3:45 PM EDT Beth Colunga ? 04/08/2018 ??3:45 PM [facility] Department of Neurology In Patient Routine EEG Report Name of the Patient: ??Christy Ambrose Date of : ?1960 Date of Service: ?04/08/2018 Referring physician: ?John Rose MD BRIEF HISTORY: Christy Ambrose is a 57 y.o. year old patient with couple of L focal twitching which evolved to L head turn and then tonic seizure for 2 minutes. MEDICATIONS: Current Facility-Administered Medications Medication Dose Route Frequency Provider Last Rate Last Dose ? ? metoprolol tartrate (LOPRESSOR) tablet 50 mg ??50 mg Oral Q8H Angelika Tamayo PA ?? 50 mg at 04/08/18 1440 ? ? ceFAZolin (ANCEF) 1g in dextrose 5% 50mL ??1 g Intravenous Q12H Apple Gutierrez MD ? LORazepam (ATIVAN) injection 2 mg ??2 mg Intravenous Q4H PRN Natalya Minaya MD ? senna-docusate (PERICOLACE) 8.6-50 mg per tablet 1 tablet ??1 tablet Oral BID Natalya Minaya MD ? fosphenytoin (CeREbyx) 100 mg PE/2 mL 915 mg PE in sodium chloride 0.9% 118.3 mL ??10 mg PE/kg Intravenous Once John Rose MD ? [START ON 04/09/2018] fosphenytoin (CeREbyx) 100 mg PE/2 mL solution for injection 100 mg PE ??100 mg PE Intravenous Q8H John Rose MD ? HYDROmorphone (DILAUDID) injection 0.3 mg ??0.3 mg Intravenous Q4H PRN Natalya Minaya MD ?? 0.3 mg at 04/08/18 0431 ? ? levETIRAcetam (KEPPRA) tablet 500 mg ??500 mg Oral Daily Natalya Minaya MD ?? 500 mg at 04/08/18 0830 ? ? levETIRAcetam (KEPPRA) tablet 250 mg ??250 mg Oral Daily Natalya Minaya MD ?? 250 mg at 04/07/18 2020 ? ? levothyroxine (SYNTHROID) tablet 88 mcg ??88 mcg Oral QAM Natalya Minaya MD ? pantoprazole (PROTONIX) tablet 20 mg ??20 mg Oral BID Natalya Minaya MD ?? 20 mg at 04/08/18 0837 ? ? allopurinol (ZYLOPRIM) tablet 150 mg ??150 mg Oral Daily Natalya Minaya MD ?? 150 mg at 04/08/18 0835 ? ? ondansetron (ZOFRAN) injection 4 mg ??4 mg Intravenous Q8H PRN Tim Ogden MD ?? 4 mg at 04/08/18 0401 ? ? sodium chloride 0.45% 1,000 mL with sodium bicarbonate 75 mEq infusion ?? Intravenous Continuous Rasta Hernández MD 50 mL/hr at 04/07/18 1739 ? chlorhexidine (PERIDEX) 0.12 % oral solution 15 mL ??15 mL Oral BID Natalya Minaya MD ?? 15 mL at 04/07/18 0901 ? ? sodium chloride 0.9 % flush 5 mL ??5 mL Intravenous Q12H Natalya Minaya MD ?? 5 mL at 04/08/18 0600 ? ? sodium chloride 0.9 % flush 5-20 mL ??5-20 mL Intravenous Q1 Min PRN Natalya Minaya MD ? lidocaine (XYLOCAINE) 10 mg/mL (1 %) injection 3 mg ??0.3 mL Subcutaneous Once PRN Natalya Minaya MD ? acetaminophen (TYLENOL) tablet 1,000 mg ??1,000 mg Oral Q8H EDWARD Natalya Minaya MD ?? 1,000 mg at 04/08/18 1440 ? ? tacrolimus (PROGRAF) capsule 1 mg ??1 mg Oral BID Natalya Minaya MD ?? 1 mg at 04/08/18 0829 ? ? mycophenolate (CELLCEPT) capsule 250 mg ??250 mg Oral BID Natalya Minaya MD ?? 250 mg at 04/08/18 0823 ? ? hydrALAZINE (APRESOLINE) injection 10 mg ??10 mg Intravenous Q6H PRN Natalya Minaya MD ? labetalol (NORMODYNE,TRANDATE) injection 20 mg ??20 mg Intravenous Q4H PRN Natalya Minaya MD ? METHODS: A 21 channel digitized electroencephalogram was performed in the [facility] Clinical Neurophysiology Laboratory. The 10/20 international system of electrode placement was used and bipolar and referential electrode montages were recorded. ??In addition to EEG the patient was monitored for EKG and lateral/vertical eye movements. Video was recorded during the session. The duration of the recording was 30 minutes. FOOD SAFETY COORDINATOR'S REPORT: Performed by: AT Patient was not sleep deprived. Sleep was not attained. Photic stimulation was performed. Hyperventilation was not performed. Effort was was not adequate. Movement and other artifact was not significant. Comments: none Lida Peter MD NEUROLOGY ORDERABLES * Carotid Duplex, Bilateral (04/08/2018 2:49 PM EDT) VB Text Report Department: Vascular Surgery Lab Patient: [id number] (ARNOL, CHRISTY) CPT: 36741 ICD10: I63.9 Referring Physician: LIDA PETER ?? Phone: Indications: CVA, ? carotid stenosis ICD10 Diagnosis Code: I63.9 Findings: ICA Proximal, Right ? PSV (cm/s): 90 ? EDV (cm/s): 33 ? ICA/CCA: 1.2 ? Plaque Structure: Echogenic ? Plaque Surface: Smooth ? %Stenosis: <15% ICA Distal, Right ? PSV (cm/s): 70 ? EDV (cm/s): 32 ? ICA/CCA: 0.9 CCA Distal, Right ? PSV (cm/s): 77 ? EDV (cm/s): 23 ? %Stenosis: Minimal CCA Proximal, Right ? PSV (cm/s): 77 ? EDV (cm/s): 23 External Carotid Artery, Right ? PSV (cm/s): 90 ? EDV (cm/s): 20 ? %Stenosis: <50% Vertebral, Right ? PSV (cm/s): 47 ? EDV (cm/s): 20 ? Direction of Flow: Antegrade ICA Proximal, Left ? PSV (cm/s): 64 ? EDV (cm/s): 30 ? ICA/CCA: 0.8 ? Plaque Structure: Echogenic ? Plaque Surface: Smooth ? %Stenosis: <15% ICA Distal, Left ? PSV (cm/s): 112 ? EDV (cm/s): 49 ? ICA/CCA: 1.5 CCA Distal, Left ? PSV (cm/s): 77 ? EDV (cm/s): 25 ? %Stenosis: Minimal CCA Proximal, Left ? PSV (cm/s): 96 ? EDV (cm/s): 26 External Carotid Artery, Left ? PSV (cm/s): 41 ? EDV (cm/s): 10 ? %Stenosis: <50% Vertebral, Left ? PSV (cm/s): 73 ? EDV (cm/s): 31 ? Direction of Flow: Antegrade Interpretation: RIGHT: A thin layer of circumferential plaque is present in the common carotid artery causing minimal stenosis. There is smooth plaque in the proximal internal carotid artery causing <15% stenosis when compared to the more distal internal carotid artery. The bifurcation level is in the mid neck. LEFT: A thin layer of circumferential plaque is present in the common carotid artery causing minimal stenosis. There is smooth plaque in the proximal internal carotid artery causing <15% stenosis when compared to the more distal internal carotid artery. The bifurcation level is in the mid neck. Vertebral Artery Data: Patent vertebral arteries with normal antegrade Doppler waveforms and velocities bilaterally. Comparison: ??No previous study in our vascular lab database for comparison. Electronically Signed by: NATALYA OJEDA on 2018-04-10 01:16:42 PM VASCU[facility] VB Text Report End of Report VASCU[facility] 04/08/2018 2:49 PM EDT Lida Peter MD VASCULAR ORDERABLES Performing Organization Address City/[facility]/ZIP Co de Phone Number [facility]AS[facility] * (ABNORMAL) Levetiracetam level (04/08/2018 1:55 PM EDT) Levetiracetam Lvl (NOVEMBER) 47.4(H) 12.0 - 46.0 mcg/mL [facility] Comment: ADDITIONAL INFORMATION This test was developed and its performance characteristics determined by [facility] in a manner consistent with CLIA requirements. This test has not been cleared or approved by the U.S. Food and Drug Administration. Test Performed by: [facility] - [address] [address] Blood specimen (specimen) 04/08/2018 1:55 PM EDT 04/08/2018 3:54 PM EDT Narrative Resulting Agency Comment Spec In Lab Lida Peter MD LAB SEND OUT ORDERAB LES Performing Organization Address City/[facility]/ZIP Co de Phone Number [facility] [place] [place] [address] * Prepare RBC (04/08/2018 11:15 AM EDT) Dispensed? No [facility] Blood specimen (specimen) 04/08/2018 11:15 AM EDT 04/08/2018 11:11 AM EDT Lida Peter MD BLOOD BANK PRODUCT O RDERABLES Performing Organization Address [facility] Co de Phone Number [facility] [place] [address] * Prepare RBC (04/08/2018 11:15 AM EDT) Dispensed? Yes [facility] Blood specimen (specimen) 04/08/2018 11:15 AM EDT 04/08/2018 11:11 AM EDT Lida Peter MD BLOOD BANK PRODUCT O RDERABLES Performing Organization Address [facility] Co de Phone Number [facility] [place] [place] [address] * (ABNORMAL) APTT (04/08/2018 10:45 AM EDT) Partial Thromboplastin Time 38(H) 25 - 37 sec [facility] Comment: The PTT is NOT appropriate for heparin monitoring. Use the Anti-Xa level for heparin monitoring (HEP UFH) or LMWH monitoring (HEP LMW). A PTT less than 37 seconds generally indicates adequate hemostasis. Blood specimen (specimen) 04/08/2018 10:45 AM EDT 04/08/2018 10:55 AM EDT Narrative Resulting Agency Comment Spec In Lab Lida Peter MD HEMATOLOGY ORDERABLE S Performing Organization Address [facility] Co de Phone Number [facility] [place] [address] * (ABNORMAL) Prothrombin Time (04/08/2018 10:45 AM EDT) Prothrombin Time 51.2(H) 9.4 - 12.5 sec [facility] International Normalization Ratio 4.5 [facility] Comment: An INR <2.0 indicates [...] depending on clinical circumstances. Blood specimen (specimen) 04/08/2018 10:45 AM EDT 04/08/2018 10:55 AM EDT Narrative Resulting Agency Comment Spec In Lab Lida Peter MD HEMATOLOGY ORDERABLE S Performing Organization Address City/[facility]/ZIP Co de Phone Number [facility] [place] [address] * (ABNORMAL) CK (04/08/2018 10:45 AM EDT) Creatine Kinase 646(H) 0 - 200 unit/L [facility] Blood specimen (specimen) 04/08/2018 10:45 AM EDT 04/08/2018 10:55 AM EDT Narrative Resulting Agency Comment Spec In Lab Lida Peter MD CHEMISTRY ORDERABLES Performing Organization Address [facility] Co de Phone Number [facility] [place] [address] * (ABNORMAL) Hemoglobin and Hematocrit, blood (04/08/2018 10:45 AM EDT) Hemoglobin 7.2(L) 13.7 - 16.5 gm/dL [facility] Hematocrit 21.3(L) 40.5 - 48.5 % [facility] Blood specimen (specimen) 04/08/2018 10:45 AM EDT 04/08/2018 10:55 AM EDT Narrative Resulting Agency Comment Spec In Lab Lida Peter MD HEMATOLOGY ORDERABLE S Performing Organization Address City/[facility]/ZIP Co de Phone Number [facility] [place] [address] * Tacrolimus level (04/08/2018 8:30 AM EDT) Tacrolimus 2.1 ng/mL [facility] Comment: Trough therapeutic: ??5-15 ng/mL Performed by ultra-performance liquid chromatography tandem mass spectrometry (UPLCMS/MS). This test was developed and its performance characteristics determined by [facility]. It has not been cleared or approved by the FDA. The laboratory is regulated under CLIA as qualified to perform high-complexity testing. This test is used for clinical purposes. It should not be regarded as investigational or for research. Blood specimen (specimen) 04/08/2018 8:30 AM EDT 04/08/2018 9:44 AM EDT Narrative Resulting Agency Comment Spec In Lab Lida Peter MD CHEMISTRY ORDERABLES Performing Organization Address [facility]/ZIP Co de Phone Number [facility] [place] [address] * Prepare RBC (04/08/2018 4:55 AM EDT) Dispensed? Yes [facility] Blood specimen (specimen) 04/08/2018 4:55 AM EDT 04/08/2018 4:59 AM EDT Lida Peter MD BLOOD BANK PRODUCT O RDERABLES Performing Organization Address [facility]/ZIP Co de Phone Number [facility] [place] [address] * Blue Tube HOLD (04/08/2018 4:05 AM EDT) Blue Hold Sample in lab. [facility] Blood specimen (specimen) Venous Draw / Unknown 04/08/2018 4:05 AM EDT 04/08/2018 4:21 AM EDT Apple Gutierrez MD HEMATOLOGY ORDERABLE S Performing Organization Address City/[facility]/[place] [address] * (ABNORMAL) Differential, Automated (04/08/2018 4:05 AM EDT) Pathologist [facility] Neutrophil % 81.8 % [facility] Neutrophil Absolute 7.13(H) 1.70 - 6.10 x10(3)/mc L [facility] Lymph % 8.0 % [facility] Lymphocytes Abs 0.7(L) 0.9 - 3.2 x10(3)/ L [facility] Monocyte % 7.9 % [facility] Monocyte Abs 0.7 0.3 - 0.9 x10(3)/ L [facility] Eos % 1.8 % [facility] Eosinophils Abs 0.2 0.0 - 0.4 x10(3)/[facility] Basophil % 0.2 % [facility] Baso Absolute 0.0 0.0 - 0.1 x10(3)/ L [facility] Immature Gran % 0.30 % [facility] Comment: Immature granulocytes(IG's)percentage and absolute count will include metamyelocytes, myelocytes, and promyelocytes. Blood smears from CBCs yielding IG's will be scanned manually for concordance. If this scan disagrees with the automated IG or if promyelocytes are noted, a manual differential will be performed. Immature Gran Absolute 0.03 0.00 - 0.04 x10(3)/mc L [facility] Blood specimen (specimen) 04/08/2018 4:05 AM EDT 04/08/2018 4:21 AM EDT Narrative Resulting Agency Comment Spec In Lab Apple Gutierrez MD [place] [address] * (ABNORMAL) Hemogram (04/08/2018 4:05 AM EDT) White Blood Cell 8.7 4.0 - 9.5 x10(3)/ L [facility] Red Blood Cell 2.26(L) 4.58 - 5.54 x10(6)/mc L [facility] Hemoglobin 6.8(L) 13.7 - 16.5 gm/dL [facility] Hematocrit 20.4(L) 40.5 - 48.5 % [facility] Mean Cell Volume 90.3 82.9 - 93.1 fL [facility] Mean Cell Hemoglobin 30.1 27.5 - 32.1 pg [facility] Mean Cell Hemoglobin Concentration 33.3 32.0 - 35.7 gm/dL [facility] Platelet 94(L) 145 - 357 x10(3)/ L [facility] RDW Standard Deviation 57.9(H) 36.0 - 45.0 [facility] RDW coefficient of variation 17.7(H) 11.4 - 13.8 % [facility] Mean Platelet Volume 9.7 7.6 - 12.9 [facility] NRBC% auto 0.0 % [facility] NRBC Absolute 0.000 0.000 - 0.000 x10(3)/[facility] Blood specimen (specimen) 04/08/2018 4:05 AM EDT 04/08/2018 4:21 AM EDT Narrative Resulting Agency Comment Spec In Lab Apple Gutierrez MD HEMATOLOGY ORDERABLE S [facility] [place] [address] * (ABNORMAL) Basic Metabolic Panel (non-fasting) (04/08/2018 4:05 AM EDT) Pathologist [facility] Glucose 120 65 - 199 mg/dL [facility] Comment:Diabetes: >=200 mg/d L plus symptoms Blood Urea Nitrogen 47(H) 10 - 20 mg/dL [facility] Creatinine 2.93(H) 0.80 - 1.50 mg/dL [facility] Sodium 144 135 - 145 mmol/L [facility] Potassium 5.4(H) 3.5 - 5.0 mmol/L [facility] Comment: Please note: ??Patients with WBC >100,000 may have falsely elevated Potassium levels. ??For accurate Potassium quantification in these patients send serum separator tube (gold top) for subsequent determinations. ??Contact the Clinical Chemistry Laboratory if there are any questions. Chloride 115(H) 98 - 107 mmol/L [facility] Carbon Dioxide 16(L) 22 - 31 mmol/L [facility] Anion Gap 13 5 - 15 mmol/L [facility] Calcium 7.1(L) 8.5 - 10.5 mg/dL [facility] Comment:result rechecked-VT Est Glomerular Filtration Rate 23(L) >=60 mL/min/1. 73 m?? [facility] Comment: The eGFR was calculated using the CKD-EPI equation. As with all creatinine based estimates of kidney function, eGFR values calculated with the CKD-EPI equation are not accurate in patients with acute kidney failure, extremes of body mass or the acutely ill. [email or web address] [email or web address] eGFR 26(L) >=60 mL/min/1. 73 m?? [facility] Comment: The eGFR was calculated using the CKD-EPI equation. As with all creatinine based estimates of kidney function, eGFR values calculated with the CKD-EPI equation are not accurate in patients with acute kidney failure, extremes of body mass or the acutely ill. [email or web address] Blood specimen (specimen) 04/08/2018 4:05 AM EDT 04/08/2018 4:21 AM EDT Narrative Resulting Agency Comment Spec In Lab Hay Sparks MD CHEMISTRY ORDERABLES [facility] [place] [place] [address] * MRI Brain wo Contrast (04/07/2018 9:11 PM EDT) Anatomical Region Laterality Modality Head Magnetic Resonan ce Impressions 04/07/2018 9:46 PM EDT Multiple areas of acute ischemia, primarily cortical, likely reflecting mild hypoxic ischemic injury. Narrative 04/07/2018 9:46 PM EDT EXAMINATION: MRI BRAIN WO CONTRAST CLINICAL HISTORY: eval possible anoxic brain injury TECHNIQUE: Routine MRI of the brain was performed without contrast COMPARISON: CT head 04/06/2018 FINDINGS: There is diffuse diffusion restriction within multiple areas of the cerebral cortex as well as several periventricular foci. There are small areas of diffusion restriction within the right thalamus, bilateral heads of the caudate nuclei, and cerebellar hemispheres, left greater than right. No significant mass effect or extra-axial collection. No midline shift. Probable posttraumatic injury to the anterior left temporal lobe. Marked thinning or absence of the posterior body and isthmus of the corpus callosum. Scattered subcortical and confluent periventricular white matter signal alteration likely reflecting sequela of chronic microangiopathy. Generalized parenchymal volume loss with commensurate enlargement of the ventricles and widening of the sulci. Procedure Note Marcia Mathew MD - 04/07/2018 EXAMINATION: MRI BRAIN WO CONTRAST CLINICAL HISTORY: eval possible anoxic brain injury TECHNIQUE: Routine MRI of the brain was performed without contrast COMPARISON: CT head 04/06/2018 FINDINGS: There is diffuse diffusion restriction within multiple areas ofthe cerebral cortex as well as several periventricular foci. There are smallareas of diffusion restriction within the right thalamus, bilateral heads ofthe caudate nuclei, and cerebellar hemispheres, left greater than right. No significant mass effect or extra-axial collection. No midline shift.Probable posttraumatic injury to the anterior left temporal lobe. Marked thinningor absence of the posterior body and isthmus of the corpus callosum.Scattered subcortical and confluent periventricular white matter signal alterationlikely reflecting sequela of chronic microangiopathy. Generalized parenchymalvolume loss with commensurate enlargement of the ventricles and widening of thesulci. IMPRESSION Multiple areas of acute ischemia, primarily cortical, likely reflecting mild hypoxic ischemic injury. Lida Peter MD IMG MRI ORDERABLES * Request For 2nd Read CT Spine (04/07/2018 9:13 AM EDT) Anatomical Region Laterality Modality C-spine, T-spine, L-spine SO Impressions 04/07/2018 3:50 PM EDT No acute fracture or traumatic malalignment of the thoracic or lumbar spine. Please see dedicated report for CT of the chest/abdomen/pelvis for nonosseous findings. I have personally reviewed the image(s) and the residents interpretation and agree with the findings, Marcia Mathew at 04/07/2018 3:50 PM Narrative 04/07/2018 3:50 PM EDT EXAMINATION: REQUEST FOR 2ND READ CT SPINE CLINICAL HISTORY: 57M, found down, PEA arrest w ROSC but ongoing AMS; please eval for T or L spine fractures; What Modality is the exam? CT Scan; Body Part (please add comments as necessary): T and L spine; I believe a reinterpretation of this exam may alter care of Patient. Yes TECHNIQUE: CT reconstructions of the thoracic and lumbar spine were performed at [facility] on 04/06/2018. COMPARISON: CT chest and abdomen 09/23/2017, CT chest/abdomen/pelvis 05/14/2017, CT chest/abdomen/pelvis 04/06/2018 FINDINGS: CT thoracic spine: The bones appear demineralized. Dextroconvex curvature of the thoracic spine, centered at the T8 level. Unchanged vertebral body heights as compared to CT from 05/14/2017, including anterior wedging of T7-T8. No prevertebral soft tissue swelling. No spondylolisthesis. Multilevel disc degenerative changes are present, worst within the lower thoracic spine on the right, characterized by endplate osteophytes, endplate irregularities consistent with Schmorl's nodes and facet arthropathy. There is fusion across the right-sided anterior osteophytes at the T8-T9, T9-T10 and T10-T11 levels. There is osseous fusion across the anterior right aspect of the T9-T10 disc space. Small osseous excrescence arises from the superior margin of the T9 posterior rib. CT lumbar spine: Levoconvex curvature of the lumbar spine, centered at the L4-L5 level. No prevertebral soft tissue swelling. The lumbar vertebral body heights are normal. Transitional L1 vertebra with a nonfused left transverse process, a developmental variant. Disc degenerative changes are present, characterized by endplate irregularities consistent with Schmorl's nodes, endplate osteophytes and facet arthropathy. Ill-defined lucencies are present in the iliac bones which appear to contain subtle central trabeculation and possibly representing hemangiomas. Procedure Note Marcia Mathew MD - 04/07/2018 EXAMINATION: REQUEST FOR 2ND READ CT SPINE CLINICAL HISTORY: 57M, found down, PEA arrest w ROSC but ongoing AMS;please eval for T or L spine fractures; What Modality is the exam? CT Scan; BodyPart (please add comments as necessary): T and L spine; I believe areinterpretation of this exam may alter care of Patient. Yes TECHNIQUE: CT reconstructions of the thoracic and lumbar spine were performed at [facility] on 04/06/2018. COMPARISON: CT chest and abdomen 09/23/2017, CT chest/abdomen/pelvis 05/14/2017, CT chest/abdomen/pelvis 04/06/2018 FINDINGS: CT thoracic spine: The bones appear demineralized. Dextroconvex curvature of the thoracicspine, centered at the T8 level. Unchanged vertebral body heights as compared toCT from 05/14/2017, including anterior wedging of T7-T8. No prevertebral softtissue swelling. No spondylolisthesis. Multilevel disc degenerative changes are present, worst within the lower thoracic spine on the right, characterizedby endplate osteophytes, endplate irregularities consistent with Schmorl'snodes and facet arthropathy. There is fusion across the right-sided anterior osteophytes at the T8-T9, T9-T10 and T10-T11 levels. There is osseousfusion across the anterior right aspect of the T9-T10 disc space. Small osseous excrescence arises from the superior margin of the T9 posterior rib. CT lumbar spine: Levoconvex curvature of the lumbar spine, centered at the L4-L5 level.No prevertebral soft tissue swelling. The lumbar vertebral body heights arenormal. Transitional L1 vertebra with a nonfused left transverse process, a developmental variant. Disc degenerative changes are present,characterized by endplate irregularities consistent with Schmorl's nodes, endplateosteophytes and facet arthropathy. Ill-defined lucencies are present in the iliacbones which appear to contain subtle central trabeculation and possiblyrepresenting hemangiomas. IMPRESSION No acute fracture or traumatic malalignment of the thoracic or lumbarspine. Please see dedicated report for CT of the chest/abdomen/pelvis fornonosseous findings. I have personally reviewed the image(s) and the residents interpretationand agree with the findings, Marcia Mathew at 04/07/2018 3:50 PM Lida Peter MD IMG OUTSIDE INTERPRE TATION ORDERABLES * POCT Glucose (04/07/2018 5:56 AM EDT) Pathologist [facility] Glucose, POC 136 65 - 199 mg/dL [facility] Comment: Supplemental ranges: <140 mg/dL before meals <180 mg/dL all other times of the day Blood specimen (specimen) 04/07/2018 5:56 AM EDT 04/07/2018 5:56 AM EDT Lida Peter MD POINT OF CARE TEST O RDERABLES [facility] [place] [place] [address] * (ABNORMAL) Cardiac Enzymes (LEB/CGP) (04/07/2018 5:55 AM EDT) [facility] Troponin-T 0.15(H) 0.00 - 0.00 ng/mL [facility] Comment: The 99th percentile for Troponin T is less than 0.01 ng/mL, any detectable cTnT concentration using this assay should be considered elevated. According to the third universal definition of myocardial infarction the following criteria with a clinical presentation consistent with acute myocardial ischemia meets the diagnosis for a myocardial infarction (MT). Detection of a rise and/or fall of cTnT, with at least one value greater than the 99th percentile (> or = 0.01) and with at least one of the following ?? Symptoms of ischemia ?? New or presumed new significant AJ-[id number]-D wave (ST-T) changes or new left bundle [...] additional sample may be indicated. Reference: Third [place] Definition of Myocardial Infarction. Journal of the [place] [employer] 2012;60:1581-98 Creatine Kinase 700(H) 0 - 200 unit/L [facility] Blood specimen (specimen) 04/07/2018 5:55 AM EDT 04/07/2018 6:34 AM EDT Narrative Resulting Agency Comment Spec In Lab Lida Peter MD CHEMISTRY ORDERABLES Performing Organization Address [facility] Co de Phone Number [facility] [place] [address] * (ABNORMAL) CK (04/07/2018 5:55 AM EDT) Creatine Kinase 699(H) 0 - 200 unit/L [facility] Blood specimen (specimen) 04/07/2018 5:55 AM EDT 04/07/2018 6:03 AM EDT Narrative Resulting Agency Comment Spec In Lab Lida Peter MD CHEMISTRY ORDERABLES Performing Organization Address [facility]/ZIP Co de Phone Number [facility] [place] [address] * (ABNORMAL) Hemoglobin and Hematocrit, blood (04/07/2018 5:55 AM EDT) Hemoglobin 7.2(L) 13.7 - 16.5 gm/dL [facility] Hematocrit 21.2(L) 40.5 - 48.5 % [facility] Blood specimen (specimen) 04/07/2018 5:55 AM EDT 04/07/2018 6:03 AM EDT Narrative Resulting Agency Comment Spec In Lab Lida Peter MD HEMATOLOGY ORDERABLE S Performing Organization Address City/[facility]/ZIP Co de Phone Number [facility] [place] [address] * Lactate, whole blood, send to lab (Leb/CGP) (04/07/2018 5:55 AM EDT) Lactate WB 1.2 0.5 - 2.2 mmol/L [facility] Blood specimen (specimen) 04/07/2018 5:55 AM EDT 04/07/2018 6:03 AM EDT Narrative Resulting Agency Comment Spec In Lab Lida Peter MD CHEMISTRY ORDERABLES Performing Organization Address City/[facility]/ZIP Co de Phone Number [facility] [place] [place] [address] * (ABNORMAL) Basic Metabolic Panel (non-fasting) (04/07/2018 4:30 AM EDT) Glucose 124 65 - 199 mg/dL [facility] [facility] Comment:Diabetes: >=200 mg/d L plus symptoms Blood Urea Nitrogen 50(H) 10 - 20 mg/dL [facility] Creatinine 2.68(H) 0.80 - 1.50 mg/dL [facility] Sodium 143 135 - 145 mmol/L [facility] Potassium 5.4(H) 3.5 - 5.0 mmol/L [facility] Comment: Please note: ??Patients with WBC >100,000 may have falsely elevated Potassium levels. ??For accurate Potassium quantification in these patients send serum separator tube (gold top) for subsequent determinations. ??Contact the Clinical Chemistry Laboratory if there are any questions. Chloride 116(H) 98 - 107 mmol/L [facility] Carbon Dioxide 16(L) 22 - 31 mmol/L [facility] Anion Gap 11 5 - 15 mmol/L [facility] Calcium 7.0(L) 8.5 - 10.5 mg/dL [facility] Est Glomerular Filtration Rate 25(L) >=60 mL/min/1. 73 m?? [facility] Comment: The eGFR was calculated using the CKD-EPI equation. As with all creatinine based estimates of kidney function, eGFR values calculated with the CKD-EPI equation are not accurate in patients with acute kidney failure, extremes of body mass or the acutely ill. [email or web address] eGFR 29(L) >=60 mL/min/1. 73 m?? [facility] Comment: The eGFR was calculated using the CKD-EPI equation. As with all creatinine based estimates of kidney function, eGFR values calculated with the CKD-EPI equation are not accurate in patients with acute kidney failure, extremes of body mass or the acutely ill. [email or web address] Blood specimen (specimen) 04/07/2018 4:30 AM EDT 04/07/2018 4:34 AM EDT Narrative Resulting Agency Comment Spec In Lab Lida Peter MD CHEMISTRY ORDERABLES Performing Organization Address [facility]/ZIP Co de Phone Number [facility] [place] [address] * POCT Glucose (04/07/2018 3:35 AM EDT) Glucose, POC 131 65 - 199 mg/dL [facility] Comment: Supplemental ranges: <140 mg/dL before meals <180 mg/dL all other times of the day Blood specimen (specimen) 04/07/2018 3:35 AM EDT 04/07/2018 3:35 AM EDT Lida Peter MD POINT OF CARE TEST O RDERABLES [facility] [place] [address] * Lactate, whole blood, send to lab (Leb/CGP) (04/07/2018 12:15 AM EDT) Lactate WB 1.5 0.5 - 2.2 mmol/L [facility] Blood specimen (specimen) 04/07/2018 12:15 AM EDT 04/07/2018 12:21 AM EDT Narrative Resulting Agency Comment Spec In Lab Lida Peter MD CHEMISTRY ORDERABLES Performing Organization Address [facility] de Phone Number [facility] [place] [address] * (ABNORMAL) CK (04/07/2018 12:15 AM EDT) Pathologist [facility] Creatine Kinase 608(H) 0 - 200 unit/L [facility] Comment:result rechecked-RR Blood specimen (specimen) 04/07/2018 12:15 AM EDT 04/07/2018 12:21 AM EDT Narrative Resulting Agency Comment Spec In Lab Lida Peter MD CHEMISTRY ORDERABLES Performing Organization Address [facility] Co de Phone Number [facility] [place] [address] * (ABNORMAL) Hemoglobin and Hematocrit, blood (04/07/2018 12:15 AM EDT) Pathologist [facility] Hemoglobin 7.9(L) 13.7 - 16.5 gm/dL [facility] Hematocrit 23.1(L) 40.5 - 48.5 % [facility] Blood specimen (specimen) 04/07/2018 12:15 AM EDT 04/07/2018 12:21 AM EDT Narrative Resulting Agency Comment Spec In Lab Lida Peter MD HEMATOLOGY ORDERABLE S Performing Organization Address City/[facility]/ZIP Co de Phone Number [facility] [place] [address] * (ABNORMAL) Basic Metabolic Panel (non-fasting) (04/07/2018 12:15 AM EDT) Glucose 167 65 - 199 mg/dL [facility] Comment:Diabetes: >=200 mg/d L plus symptoms Blood Urea Nitrogen 48(H) 10 - 20 mg/dL [facility] Creatinine 2.58(H) 0.80 - 1.50 mg/dL [facility] Sodium 143 135 - 145 mmol/L [facility] Potassium 6.1(Criti constance) 3.5 - 5.0 mmol/L [facility] Comment: Called by: RUPINDER, Read back by: EVELIN CALLEJAS, Date/Time:04/07/18 01:06. Please note: ??Patients with WBC >100,000 may have falsely elevated Potassium levels. ??For accurate Potassium quantification in these patients send serum separator tube (gold top) for subsequent determinations. ??Contact the Clinical Chemistry Laboratory if there are any questions. Chloride 117(H) 98 - 107 mmol/L [facility] Carbon Dioxide 15(L) 22 - 31 mmol/L [facility] Anion Gap 11 5 - 15 mmol/L [facility] Calcium 6.8(Criti constance) 8.5 - 10.5 mg/dL [facility] Comment:Called by: RUPINDER, Read back by: EVELIN CALLEJAS, Date/Time:04/07/18 01:06. Est Glomerular Filtration Rate 27(L) >=60 mL/min/1. 73 m?? [facility] Comment: The eGFR was calculated using the CKD-EPI equation. As with all creatinine based estimates of kidney function, eGFR values calculated with the CKD-EPI equation are not accurate in patients with acute kidney failure, extremes of body mass or the acutely ill. [email or web address] eGFR 31(L) >=60 mL/min/1. 73 m?? [facility] Comment: The eGFR was calculated using the CKD-EPI equation. As with all creatinine based estimates of kidney function, eGFR values calculated with the CKD-EPI equation are not accurate in patients with acute kidney failure, extremes of body mass or the acutely ill. [email or web address] Blood specimen (specimen) 04/07/2018 12:15 AM EDT 04/07/2018 12:21 AM EDT Narrative Resulting Agency Comment Spec In Lab Lida Peter MD CHEMISTRY ORDERABLES Performing Organization Address [facility] Co de Phone Number [facility] [place] [address] * POCT Glucose (04/06/2018 8:30 PM EDT) [facility] Signature Glucose, POC 177 65 - 199 mg/dL [facility] Comment: Supplemental ranges: <140 mg/dL before meals <180 mg/dL all other times of the day Blood specimen (specimen) 04/06/2018 8:30 PM EDT 04/06/2018 8:30 PM EDT Lida Peter MD POINT OF CARE TEST O RDERABLES Performing Organization Address [facility] Co de Phone Number [facility] [place] [address] * Request For 2nd Read CT Chest Abdomen Pelvis (04/06/2018 6:08 PM EDT) Anatomical Region Laterality Modality Chest, Abdomen, Pelvis SO Impressions 04/07/2018 8:57 AM EDT 1. ??IMPRESSION: No acute injury of the visualized vascular structures. 2. ??No abdominal solid organ injury. No pneumothorax. Narrative 04/07/2018 8:57 AM EDT EXAMINATION: REQUEST FOR 2ND READ CT CHEST ABDOMEN PELVIS CLINICAL HISTORY: Found down, trauma; What Modality is the exam? CT Scan; Body Part (please add comments as necessary): CT CAP; I believe a reinterpretation of this exam may alter care of Patient. Yes TECHNIQUE: CTA of the chest, abdomen, and pelvis performed at [facility] on 04/06/2018. 5 mm and 1 mm thick axial slices and 3 mm thick coronal and sagittal reformatted images are provided for reinterpretation. COMPARISON: CT chest and abdomen on 09/23/2017 FINDINGS: VASCULAR FINDINGS Heart: Normal in size. No pericardial effusion. Thoracic aorta: There is dilation of the ascending aorta greatest in the mid segment tapering in the arch and measuring up to 4.5 cm in diameter. The descending thoracic aorta is normal in caliber and course. No evidence of acute injury. Great vessel origins: There is conventional three-vessel arch anatomy. The RIGHT brachiocephalic artery is mildly ectatic measuring up to 1.5 cm in diameter the arch vessels are widely patent. 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 Pulmonary arteries: No central filling defects. Abdominal aorta: No stenosis or aneurysm. Celiac axis: Mild, less than 50% focal stenosis beginning less than 1 cm from the origin.. SMA: Widely patent. Right renal artery: The vessel becomes severely stenotic/diminutive beginning less than 1 cm from the origin. Left renal artery: Proximally occluded. RIGHT pelvic donor kidney: The arterial anastomosis and renal artery are widely patent and well opacified with contrast. The venous anastomosis is widely patent and there is no venous thrombus. RUTH: Widely patent. Right: Common iliac artery: Widely patent. External iliac artery: Widely patent. Internal iliac artery: Widely patent. Common femoral artery: Widely patent. Left: Common iliac artery: Widely patent. External iliac artery: Widely patent. Internal iliac artery: Widely patent. Common femoral artery: Widely patent. NON-VASCULAR FINDINGS Lungs and large airways: Mild basilar atelectasis greatest on the RIGHT. An endotracheal tube is present with the tip approximately 3 cm above the nina. Pleura: No effusion. Lymph nodes: No enlarged lymph nodes. Mediastinum and lupe: Normal. Liver: Normal. Bile ducts: Nondilated. Gallbladder: No calcified gallstones. Normal caliber wall. Pancreas: Normal. Spleen: Normal. Kidneys/Adrenals: The RIGHT and LEFT cahto kidneys are severely atrophic. The patient status post RIGHT pelvic kidney transplant which appears well perfused without hydronephrosis or perinephric collection. Urinary Bladder: A Peraza catheter is in the bladder lumen with the bladder decompressed. Lymph Nodes: No enlarged lymph nodes. Bowel: Nondilated, no wall thickening. ?? Peritoneum and mesentery: No ascites, free air, or loculated fluid collection. No mesenteric inflammation. Osseous structures: No significant findings. Procedure Note Natalya Lin MD - 04/07/2018 EXAMINATION: REQUEST FOR 2ND READ CT CHEST ABDOMEN PELVIS CLINICAL HISTORY: Found down, trauma; What Modality is the exam? CT Scan;Body Part (please add comments as necessary): CT CAP; I believe areinterpretation of this exam may alter care of Patient. Yes TECHNIQUE: CTA of the chest, abdomen, and pelvis performed at an [facility] on 04/06/2018. 5 mm and 1 mm thick axial slices and 3 mm thick coronal andsagittal reformatted images are provided for reinterpretation. COMPARISON: CT chest and abdomen on 09/23/2017 FINDINGS: VASCULAR FINDINGS Heart: Normal in size. No pericardial effusion. Thoracic aorta: There is dilation of the ascending aorta greatest in themid segment tapering in the arch and measuring up to 4.5 cm in diameter. The descending thoracic aorta is normal in caliber and course. No evidence ofacute injury. Great vessel origins: There is conventional three-vessel arch anatomy. TheRIGHT brachiocephalic artery is mildly ectatic measuring up to 1.5 cm indiameter the arch vessels are widely patent. The reported LEFT brachial artery aneurysmis now visualized to the exam. Pulmonary arteries: No central filling defects. Abdominal aorta: No stenosis or aneurysm. Celiac axis: Mild, less than 50% focal stenosis beginning less than 1 cmfrom the origin.. SMA: Widely patent. Right renal artery: The vessel becomes severely stenotic/diminutivebeginning less than 1 cm from the origin. Left renal artery: Proximally occluded. RIGHT pelvic donor kidney: The arterial anastomosis and renal artery arewidely patent and well opacified with contrast. The venous anastomosis is widelypatent and there is no venous thrombus. RUTH: Widely patent. Right: Common iliac artery: Widely patent. External iliac artery: Widely patent. Internal iliac artery: Widely patent. Common femoral artery: Widely patent. Left: Common iliac artery: Widely patent. External iliac artery: Widely patent. Internal iliac artery: Widely patent. Common femoral artery: Widely patent. NON-VASCULAR FINDINGS Lungs and large airways: Mild basilar atelectasis greatest on the RIGHT.An endotracheal tube is present with the tip approximately 3 cm above thecarina. Pleura: No effusion. Lymph nodes: No enlarged lymph nodes. Mediastinum and lupe: Normal. Liver: Normal. Bile ducts: Nondilated. Gallbladder: No calcified gallstones. Normal caliber wall. Pancreas: Normal. Spleen: Normal. Kidneys/Adrenals: The RIGHT and LEFT cahto kidneys are severely atrophic.The patient status post RIGHT pelvic kidney transplant which appears wellperfused without hydronephrosis or perinephric collection. Urinary Bladder: A Peraza catheter is in the bladder lumen with thebladder decompressed. Lymph Nodes: No enlarged lymph nodes. Bowel: Nondilated, no wall thickening. Peritoneum and mesentery: No ascites, free air, or loculated fluidcollection. No mesenteric inflammation. Osseous structures: No significant findings. IMPRESSION 1. IMPRESSION: No acute injury of the visualized vascular structures. 2. No abdominal solid organ injury. No pneumothorax. 8:57 AM Lida Peter MD IMG OUTSIDE INTERPRE TATION ORDERABLES * (ABNORMAL) Differential, Automated (04/06/2018 5:40 PM EDT) Neutrophil % 85.6 % [facility] Neutrophil Absolute 7.32(H) 1.70 - 6.10 x10(3)/mc L [facility] Lymph % 4.8 % [facility] Lymphocytes Abs 0.4(L) 0.9 - 3.2 x10(3)/mc L [facility] Monocyte % 9.1 % [facility] Monocyte Abs 0.8 0.3 - 0.9 x10(3)/mc L [facility] Eos % 0.0 % [facility] Eosinophils Abs 0.0 0.0 - 0.4 x10(3)/mc L [facility] Basophil % 0.0 % [facility] Baso Absolute 0.0 0.0 - 0.1 x10(3)/mc L [facility] Immature Gran % 0.50 % [facility] Comment: Immature granulocytes(IG's)percentage and absolute count will include metamyelocytes, myelocytes, and promyelocytes. Blood smears from CBCs yielding IG's will be scanned manually for concordance. If this scan disagrees with the automated IG or if promyelocytes are noted, a manual differential will be performed. Immature Gran Absolute 0.04 0.00 - 0.04 x10(3)/[facility] Blood specimen (specimen) 04/06/2018 5:40 PM EDT 04/06/2018 6:01 PM EDT Narrative Resulting Agency Comment Spec In Lab Natalya Minaya MD HEMATOLOGY ORDERABLE S [facility] [place] [address] * (ABNORMAL) Hemogram (04/06/2018 5:40 PM EDT) White Blood Cell 8.6 4.0 - 9.5 x10(3)/[facility] Red Blood Cell 2.56(L) 4.58 - 5.54 x10(6)/[facility] Hemoglobin 7.8(L) 13.7 - 16.5 gm/dL [facility] Hematocrit 23.1(L) 40.5 - 48.5 % [facility] Mean Cell Volume 90.2 82.9 - 93.1 fL [facility] Mean Cell Hemoglobin 30.5 27.5 - 32.1 pg [facility] Mean Cell Hemoglobin Concentration 33.8 32.0 - 35.7 gm/dL [facility] Platelet 95(L) 145 - 357 x10(3)/[facility] RDW Standard Deviation 53.6(H) 36.0 - 45.0 fL [facility] RDW coefficient of variation 16.6(H) 11.4 - 13.8 % [facility] Mean Platelet Volume 9.5 7.6 - 12.9 fL [facility] NRBC% auto 0.0 % [facility] NRBC Absolute 0.000 0.000 - 0.000 x10(3)/mc L [facility] Blood specimen (specimen) 04/06/2018 5:40 PM EDT 04/06/2018 6:01 PM EDT Narrative Resulting Agency Comment Spec In Lab Natalya Minaya MD HEMATOLOGY ORDERABLE S Performing Organization Address City/[facility]/ZIP Co de Phone Number [facility] [place] [address] * Phosphorus (04/06/2018 5:40 PM EDT) [facility] Phosphorus 3.3 2.5 - 4.5 mg/dL [facility] Blood specimen (specimen) 04/06/2018 5:40 PM EDT 04/06/2018 6:01 PM EDT Narrative Resulting Agency Comment Spec In Lab Lida Peter MD CHEMISTRY ORDERABLES Performing Organization Address [facility] Co de Phone Number [facility] [place] [address] * (ABNORMAL) Magnesium (04/06/2018 5:40 PM EDT) [facility] Magnesium 0.60(L) 0.69 - 1.07 mmol/L [facility] Blood specimen (specimen) 04/06/2018 5:40 PM EDT 04/06/2018 6:01 PM EDT Narrative Resulting Agency Comment Spec In Lab Lida Peter MD CHEMISTRY ORDERABLES Performing Organization Address [facility]/ZIP Co de Phone Number [facility] [place] [address] * (ABNORMAL) Cardiac Enzymes (LEB/CGP) (04/06/2018 5:40 PM EDT) [facility] Troponin-T 0.20(H) 0.00 - 0.00 ng/mL [facility] Comment: The 99th percentile for Troponin T is less than 0.01 ng/mL, any detectable cTnT concentration using this assay should be considered elevated. According to the third universal definition of myocardial infarction the following criteria with a clinical presentation consistent with acute myocardial ischemia meets the diagnosis for a myocardial infarction (MT). Detection of a rise and/or fall of cTnT, with at least one value greater than the 99th percentile (> or = 0.01) and with at least one of the following ?? Symptoms of ischemia ?? New or presumed new significant AT-[id number]-M wave (ST-T) changes or new left bundle [...] additional sample may be indicated. Reference: Third [place] Definition of Myocardial Infarction. Journal of the [place] College [employer] 2012;60:1581-98 Creatine Kinase 249(H) 0 - 200 unit/L [facility] Blood specimen (specimen) 04/06/2018 5:40 PM EDT 04/06/2018 6:01 PM EDT Narrative Resulting Agency Comment Spec In Lab Lida Peter MD CHEMISTRY ORDERABLES [facility] [place] [address] * (ABNORMAL) CMP w/fasting Glucose (04/06/2018 5:40 PM EDT) [facility] Glucose Fasting 140(H) 65 - 99 mg/dL [facility] Comment: ?Fasting* Glucose Interpretive Criteria [...] of Diabetes Mellitus, Position Statement from the [place] [employer]. ??Diabetes Care, Volume 33, Supplement 1, Jul 2009 Blood Urea Nitrogen 45(H) 10 - 20 mg/dL [facility] Creatinine 2.48(H) 0.80 - 1.50 mg/dL [facility] Sodium 145 135 - 145 mmol/L [facility] Potassium 5.2(H) 3.5 - 5.0 mmol/L [facility] Comment: Please note: ??Patients with WBC >100,000 may have falsely elevated Potassium levels. ??For accurate Potassium quantification in these patients send serum separator tube (gold top) for subsequent determinations. ??Contact the Clinical Chemistry Laboratory if there are any questions. Chloride 118(H) 98 - 107 mmol/L [facility] Carbon Dioxide 16(L) 22 - 31 mmol/L [facility] Anion Gap 11 5 - 15 mmol/L [facility] Calcium 6.7(Criti constance) 8.5 - 10.5 mg/dL [facility] Comment:Calcium not critical when adjusted for albumin concentration. Protein, Total 4.3(L) 6.1 - 8.0 gm/dL [facility] Albumin 2.3(L) 3.2 - 5.2 gm/dL [facility] Aspartate Aminotransferase 22 0 - 39 unit/L [facility] Alanine Aminotransferase 20 0 - 55 unit/L [facility] Alkaline Phosphatase 57 40 - 120 unit/L [facility] Bilirubin, Total 0.3 0.2 - 1.3 mg/dL [facility] Est Glomerular Filtration Rate 28(L) >=60 mL/min/1. 73 m?? [facility] Comment: The eGFR was calculated using the CKD-EPI equation. As with all creatinine based estimates of kidney function, eGFR values calculated with the CKD-EPI equation are not accurate in patients with acute kidney failure, extremes of body mass or the acutely ill. [email or web address] [email or web address]/[email or web address] eGFR 32(L) >=60 mL/min/1. 73 m?? [facility] Comment: The eGFR was calculated using the CKD-EPI equation. As with all creatinine based estimates of kidney function, eGFR values calculated with the CKD-EPI equation are not accurate in patients with acute kidney failure, extremes of body mass or the acutely ill. [email or web address] [email or web address]/[email or web address] Blood specimen (specimen) 04/06/2018 5:40 PM EDT 04/06/2018 6:01 PM EDT Narrative Resulting Agency Comment Spec In Lab Lida Peter MD CHEMISTRY ORDERABLES Performing Organization Address [facility] Co de Phone Number [facility] [place] [address] * APTT (04/06/2018 5:40 PM EDT) Partial Thromboplastin Time 30 25 - 37 sec [facility] Comment: The PTT is NOT appropriate for heparin monitoring. Use the Anti-Xa level for heparin monitoring (HEP UFH) or LMWH monitoring (HEP LMW). A PTT less than 37 seconds generally indicates adequate hemostasis. Blood specimen (specimen) 04/06/2018 5:40 PM EDT 04/06/2018 6:01 PM EDT Narrative Resulting Agency Comment Spec In Lab Lida Peter MD HEMATOLOGY ORDERABLE S Performing Organization Address City/[facility] Co de Phone Number [facility] [place] [address] * (ABNORMAL) Prothrombin Time (04/06/2018 5:40 PM EDT) Prothrombin Time 24.1(H) 9.4 - 12.5 sec [facility] International Normalization Ratio 2.2 [facility] Comment: An INR <2.0 indicates [...] depending on clinical circumstances. Blood specimen (specimen) 04/06/2018 5:40 PM EDT 04/06/2018 6:01 PM EDT Narrative Resulting Agency Comment Spec In Lab Lida Peter MD HEMATOLOGY ORDERABLE S [facility] [place] [address] * (ABNORMAL) BLOOD GAS 2 ARTERIAL (04/06/2018 5:24 PM EDT) pH, Arterial 7.29(Crit ical) 7.35 - 7.45 [facility] Comment:Noted by instrumentation chemist. PCO2, Arterial 31(L) 35 - 45 mmHg [facility] PO2, Arterial 65(L) 85 - 104 mmHg [facility] Bicarbonate, Arterial 15.2(L) 20.0 - 26.0 mmol/L [facility] Base Excess, Arterial -11.8(L) -3.0 - 3.0 mmol/L [facility] Hgb Blood Gas 8.4(L) 13.7 - 16.5 gm/dL [facility] Oxyhemoglobin, Arterial 93.0(L) 94.0 - 97.0 % [facility] Carboxyhemoglo bin, Arterial 0.3 % [facility] Comment: Nonsmokers: 0.5-1.5% COHB Smokers: Variable, but usually less than 10% Toxic: 20-30% COHB Lethal: Greater than 60% COHB Methemoglobin, Arterial 0.9 <=1.5 % [facility] Na Whole Blood 140 135 - 145 mmol/L [facility] K Whole Blood 5.0 3.5 - 5.0 mmol/L [facility] Comment: Please note: Patients with WBC >100,000 may have falsely elevated Potassium levels. Contact the Clinical Chemistry Laboratory if there are any questions. ICa Whole Blood 1.03(L) 1.15 - 1.33 mmol/L [facility] Comment: Note: ??Total bilirubin higher than 20 mg/dL may lead to falsely low ionized calcium. CL Whole Blood 119(H) 98 - 107 mmol/L [facility] Gluc Whole Bld 141 65 - 199 mg/dL [facility] Comment:Diabetes: >=200 mg/d L plus symptoms. Lactate WB 2.4(H) 0.5 - 2.2 mmol/L [facility] FIO2 Art 50 % [facility] PF Ratio Art 130 [facility] Temp Art 34.8 Celsius [facility] Blood specimen (specimen) 04/06/2018 5:24 PM EDT 04/06/2018 5:24 PM EDT Lida Peter MD POINT OF CARE TEST O UMESH Performing Organization Address [facility] Co de Phone Number [facility] [place] [address] * POCT Glucose (04/06/2018 5:10 PM EDT) Glucose, POC 147 65 - 199 mg/dL [facility] Comment: Supplemental ranges: <140 mg/dL before meals <180 mg/dL all other times of the day Blood specimen (specimen) 04/06/2018 5:10 PM EDT 04/06/2018 5:10 PM EDT Lida Peter MD POINT OF CARE TEST O UMESH Performing Organization Address City/[facility]/ZIP Co de Phone Number [facility] [place] [address] * (ABNORMAL) BLOOD GAS 2 ARTERIAL (04/06/2018 4:04 PM EDT) pH, Arterial 7.27(Criti constance) 7.35 - 7.45 [facility] Comment:Noted by instrumentation chemist. PCO2, Arterial 34(L) 35 - 45 mmHg [facility] PO2, Arterial 152(H) 85 - 104 mmHg [facility] Bicarbonate, Arterial 15.2(L) 20.0 - 26.0 mmol/L [facility] Base Excess, Arterial -11.8(L) -3.0 - 3.0 mmol/L [facility] Hgb Blood Gas 8.1(L) 13.7 - 16.5 gm/dL [facility] Oxyhemoglobin, Arterial 97.7(H) 94.0 - 97.0 % [facility] Carboxyhemoglob in, Arterial 0.5 % [facility] Comment: Nonsmokers: 0.5-1.5% COHB Smokers: Variable, but usually less than 10% Toxic: 20-30% COHB Lethal: Greater than 60% COHB Methemoglobin, Arterial 0.3 <=1.5 % [facility] Na Whole Blood 140 135 - 145 mmol/L [facility] K Whole Blood 4.6 3.5 - 5.0 mmol/L [facility] Comment: Please note: Patients with WBC >100,000 may have falsely elevated Potassium levels. Contact the Clinical Chemistry Laboratory if there are any questions. ICa Whole Blood 1.01(L) 1.15 - 1.33 mmol/L [facility] Comment: Note: ??Total bilirubin higher than 20 mg/dL may lead to falsely low ionized calcium. CL Whole Blood 118(H) 98 - 107 mmol/L [facility] Gluc Whole Bld 137 65 - 199 mg/dL [facility] Comment:Diabetes: >=200 mg/d L plus symptoms. Lactate WB 3.1(H) 0.5 - 2.2 mmol/L [facility] Blood specimen (specimen) 04/06/2018 4:04 PM EDT 04/06/2018 4:04 PM EDT Lida Peter MD POINT OF CARE TEST O RDERABLES Performing Organization Address [facility]/ZIP Co de Phone Number [facility] [place] [address] * Scan, Peripheral Blood (04/06/2018 3:53 PM EDT) [facility] Plat estimate Decreased [facility] RBC Morphology Abnormal [facility] Ovalocytes 1-5 /HPF [facility] [place] Cells 1-5 /HPF [facility] Blood specimen (specimen) 04/06/2018 3:53 PM EDT 04/06/2018 4:05 PM EDT Narrative Resulting Agency Comment Spec In Lab Lida Peter MD HEMATOLOGY ORDERABLE S Performing Organization Address City/[facility]/ZIP Co de Phone Number [facility] [place] [address] * (ABNORMAL) Differential, Automated (04/06/2018 3:53 PM EDT) [facility] Neutrophil % 80.4 % [facility] Neutrophil Absolute 8.28(H) 1.70 - 6.10 x10(3)/mc L [facility] Lymph % 6.8 % [facility] Lymphocytes Abs 0.7(L) 0.9 - 3.2 x10(3)/mc L [facility] Monocyte % 11.9 % [facility] Monocyte Abs 1.2(H) 0.3 - 0.9 x10(3)/mc L [facility] Eos % 0.0 % [facility] Eosinophils Abs 0.0 0.0 - 0.4 x10(3)/mc L [facility] Basophil % 0.1 % [facility] Baso Absolute 0.0 0.0 - 0.1 x10(3)/ L [facility] Immature Gran % 0.80 % [facility] Comment: Immature granulocytes(IG's)percentage and absolute count will include metamyelocytes, myelocytes, and promyelocytes. Blood smears from CBCs yielding IG's will be scanned manually for concordance. If this scan disagrees with the automated IG or if promyelocytes are noted, a manual differential will be performed. Immature Gran Absolute 0.08(H) 0.00 - 0.04 x10(3)/ L [facility] Blood specimen (specimen) 04/06/2018 3:53 PM EDT 04/06/2018 4:05 PM EDT Narrative Resulting Agency Comment Spec In Lab Lida Peter MD HEMATOLOGY ORDERABLE S [facility] [place] [place] [address] * (ABNORMAL) Hemogram (04/06/2018 3:53 PM EDT) White Blood Cell 10.3(H) 4.0 - 9.5 x10(3)/[facility] Red Blood Cell 2.53(L) 4.58 - 5.54 x10(6)/ L [facility] Hemoglobin 7.7(L) 13.7 - 16.5 gm/dL [facility] Comment: This result has been called to MISAEL GRANT by Evon Woodard on 04 06 2018 at 1633, and has been read back. Hematocrit 23.2(L) 40.5 - 48.5 % [facility] Comment: This result has been called to MISAEL GRANT by Evon Woodard on 04 06 2018 at 1633, and has been read back. Mean Cell Volume 91.7 82.9 - 93.1 fL [facility] Mean Cell Hemoglobin 30.4 27.5 - 32.1 pg [facility] Mean Cell Hemoglobin Concentration 33.2 32.0 - 35.7 gm/dL [facility] Platelet 96(L) 145 - 357 x10(3)/mc L [facility] RDW Standard Deviation 53.3(H) 36.0 - 45.0 fL [facility] RDW coefficient of variation 16.2(H) 11.4 - 13.8 % [facility] Mean Platelet Volume 9.0 7.6 - 12.9 fL [facility] NRBC% auto 0.0 % [facility] NRBC Absolute 0.000 0.000 - 0.000 x10(3)/mc L [facility] Blood specimen (specimen) 04/06/2018 3:53 PM EDT 04/06/2018 4:05 PM EDT Narrative Resulting Agency Comment Spec In Lab Lida Peter MD HEMATOLOGY ORDERABLE S Performing Organization Address [facility] Co de Phone Number [facility] [place] [place] [address] * APTT (04/06/2018 3:53 PM EDT) Partial Thromboplastin Time 30 25 - 37 sec [facility] Comment: The PTT is NOT appropriate for heparin monitoring. Use the Anti-Xa level for heparin monitoring (HEP UFH) or LMWH monitoring (HEP LMW). A PTT less than 37 seconds generally indicates adequate hemostasis. Blood specimen (specimen) 04/06/2018 3:53 PM EDT 04/06/2018 4:05 PM EDT Narrative Resulting Agency Comment Spec In Lab Lida Peter MD HEMATOLOGY ORDERABLE S Performing Organization Address City/[facility] Co de Phone Number [facility] [place] [place] [address] * (ABNORMAL) Prothrombin Time (04/06/2018 3:53 PM EDT) Prothrombin Time 22.5(H) 9.4 - 12.5 sec [facility] Comment:Called by: luisa, Read back by: donn thomas, Date/Time:04/06/18 16:20. International Normalization Ratio 2.0 [facility] Comment: An INR <2.0 indicates [...] depending on clinical circumstances. Blood specimen (specimen) 04/06/2018 3:53 PM EDT 04/06/2018 4:05 PM EDT Narrative Resulting Agency Comment Spec In Lab Lida Peter MD HEMATOLOGY ORDERABLE S [facility] [place] [place] [address] * (ABNORMAL) BLOOD GAS 2 ARTERIAL (04/06/2018 3:41 PM EDT) pH, Arterial 7.22(Criti constance) 7.35 - 7.45 [facility] Comment:Noted by instrumentation chemist. PCO2, Arterial 39 35 - 45 mmHg [facility] PO2, Arterial 168(H) 85 - 104 mmHg [facility] Bicarbonate, Arterial 15.3(L) 20.0 - 26.0 mmol/L [facility] Base Excess, Arterial -12.4(L) -3.0 - 3.0 mmol/L [facility] Hgb Blood Gas 8.4(L) 13.7 - 16.5 gm/dL [facility] Oxyhemoglobin, Arterial 98.1(H) 94.0 - 97.0 % [facility] Carboxyhemoglob in, Arterial 0.2 % [facility] Comment: Nonsmokers: 0.5-1.5% COHB Smokers: Variable, but usually less than 10% Toxic: 20-30% COHB Lethal: Greater than 60% COHB Methemoglobin, Arterial 0.3 <=1.5 % [facility] Na Whole Blood 143 135 - 145 mmol/L [facility] K Whole Blood 4.6 3.5 - 5.0 mmol/L [facility] Comment: Please note: Patients with WBC >100,000 may have falsely elevated Potassium levels. Contact the Clinical Chemistry Laboratory if there are any questions. ICa Whole Blood 0.92(Criti constance) 1.15 - 1.33 mmol/L [facility] Comment: Noted by instrumentation chemist. Note: ??Total bilirubin higher than 20 mg/dL may lead to falsely low ionized calcium. CL Whole Blood 119(H) 98 - 107 mmol/L [facility] Gluc Whole Bld 158 65 - 199 mg/dL [facility] Comment:Diabetes: >=200 mg/d L plus symptoms. Lactate WB 3.2(H) 0.5 - 2.2 mmol/L [facility] Blood specimen (specimen) 04/06/2018 3:41 PM EDT 04/06/2018 3:41 PM EDT Lida Peter MD POINT OF CARE TEST O RDERABLES [facility] [place] [place] [address] * (ABNORMAL) BLOOD GAS 2 ARTERIAL (04/06/2018 3:13 PM EDT) pH, Arterial 7.18(Criti constance) 7.35 - 7.45 [facility] Comment:Noted by instrumentation chemist. PCO2, Arterial 40 35 - 45 mmHg [facility] PO2, Arterial 228(H) 85 - 104 mmHg [facility] Bicarbonate, Arterial 14.8(L) 20.0 - 26.0 mmol/L [facility] Base Excess, Arterial -13.5(L) -3.0 - 3.0 mmol/L [facility] Hgb Blood Gas 9.4(L) 13.7 - 16.5 gm/dL [facility] Oxyhemoglobin, Arterial 98.3(H) 94.0 - 97.0 % [facility] Carboxyhemoglob in, Arterial 0.3 % [facility] Comment: Nonsmokers: 0.5-1.5% COHB Smokers: Variable, but usually less than 10% Toxic: 20-30% COHB Lethal: Greater than 60% COHB Methemoglobin, Arterial 0.3 <=1.5 % [facility] Na Whole Blood 141 135 - 145 mmol/L [facility] K Whole Blood 4.8 3.5 - 5.0 mmol/L [facility] Comment: Please note: Patients with WBC >100,000 may have falsely elevated Potassium levels. Contact the Clinical Chemistry Laboratory if there are any questions. ICa Whole Blood 1.12(L) 1.15 - 1.33 mmol/L [facility] Comment: Note: ??Total bilirubin higher than 20 mg/dL may lead to falsely low ionized calcium. CL Whole Blood 120(H) 98 - 107 mmol/L [facility] Gluc Whole Bld 125 65 - 199 mg/dL [facility] Comment:Diabetes: >=200 mg/d L plus symptoms. Lactate WB 2.8(H) 0.5 - 2.2 mmol/L [facility] Blood specimen (specimen) 04/06/2018 3:13 PM EDT 04/06/2018 3:13 PM EDT Lida Peter MD POINT OF CARE TEST O RDERABLES [facility] [place] [place] [address] * (ABNORMAL) BLOOD GAS 2 ARTERIAL (04/06/2018 2:48 PM EDT) pH, Arterial 7.27(Criti constance) 7.35 - 7.45 [facility] Comment:Noted by instrumentation chemist. PCO2, Arterial 36 35 - 45 mmHg [facility] PO2, Arterial 379(H) 85 - 104 mmHg [facility] Bicarbonate, Arterial 16.1(L) 20.0 - 26.0 mmol/L [facility] Base Excess, Arterial -10.8(L) -3.0 - 3.0 mmol/L [facility] Hgb Blood Gas 9.7(L) 13.7 - 16.5 gm/dL [facility] Oxyhemoglobin, Arterial 98.5(H) 94.0 - 97.0 % [facility] Carboxyhemoglob in, Arterial 0.3 % [facility] Comment: Nonsmokers: 0.5-1.5% COHB Smokers: Variable, but usually less than 10% Toxic: 20-30% COHB Lethal: Greater than 60% COHB Methemoglobin, Arterial 0.3 <=1.5 % [facility] Na Whole Blood 142 135 - 145 mmol/L [facility] K Whole Blood 5.4(H) 3.5 - 5.0 mmol/L [facility] Comment: Please note: Patients with WBC >100,000 may have falsely elevated Potassium levels. Contact the Clinical Chemistry Laboratory if there are any questions. ICa Whole Blood 1.10(L) 1.15 - 1.33 mmol/L [facility] Comment: Note: ??Total bilirubin higher than 20 mg/dL may lead to falsely low ionized calcium. CL Whole Blood 117(H) 98 - 107 mmol/L [facility] Gluc Whole Bld 185 65 - 199 mg/dL [facility] Comment:Diabetes: >=200 mg/d L plus symptoms. Lactate WB 1.9 0.5 - 2.2 mmol/L [facility] Blood specimen (specimen) 04/06/2018 2:48 PM EDT 04/06/2018 2:48 PM EDT Lida Peter MD POINT OF CARE TEST O RDERABLES [facility] [place] [address] * (ABNORMAL) BLOOD GAS 2 ARTERIAL (04/06/2018 2:46 PM EDT) pH, Arterial 7.27(Criti constance) 7.35 - 7.45 [facility] Comment:Noted by instrumentation chemist. PCO2, Arterial 36 35 - 45 mmHg [facility] PO2, Arterial Not Perf 85 - 104 mmHg [facility] Bicarbonate, Arterial 16.2(L) 20.0 - 26.0 mmol/L [facility] Base Excess, Arterial -10.7(L) -3.0 - 3.0 mmol/L [facility] Hgb Blood Gas 9.3(L) 13.7 - 16.5 gm/dL [facility] Oxyhemoglobin, Arterial 98.9(H) 94.0 - 97.0 % [facility] Carboxyhemoglob in, Arterial 0.3 % [facility] Comment: Nonsmokers: 0.5-1.5% COHB Smokers: Variable, but usually less than 10% Toxic: 20-30% COHB Lethal: Greater than 60% COHB Methemoglobin, Arterial 0.3 <=1.5 % [facility] Na Whole Blood 143 135 - 145 mmol/L [facility] K Whole Blood 5.5(H) 3.5 - 5.0 mmol/L [facility] Comment: Please note: Patients with WBC >100,000 may have falsely elevated Potassium levels. Contact the Clinical Chemistry Laboratory if there are any questions. ICa Whole Blood 1.09(L) 1.15 - 1.33 mmol/L [facility] Comment: Note: ??Total bilirubin higher than 20 mg/dL may lead to falsely low ionized calcium. CL Whole Blood 118(H) 98 - 107 mmol/L [facility] Gluc Whole Bld 191 65 - 199 mg/dL [facility] Comment:Diabetes: >=200 mg/d L plus symptoms. Lactate WB 1.8 0.5 - 2.2 mmol/L [facility] Blood specimen (specimen) 04/06/2018 2:46 PM EDT 04/06/2018 2:46 PM EDT Lida Peter MD POINT OF CARE TEST O RDERABLES [facility] [place] [address] * (ABNORMAL) BLOOD GAS 2 ARTERIAL (04/06/2018 2:16 PM EDT) pH, Arterial 7.29(Criti constance) 7.35 - 7.45 [facility] Comment:Noted by instrumentation chemist. PCO2, Arterial 38 35 - 45 mmHg [facility] PO2, Arterial 423(H) 85 - 104 mmHg [facility] Bicarbonate, Arterial 17.9(L) 20.0 - 26.0 mmol/L [facility] Base Excess, Arterial -8.6(L) -3.0 - 3.0 mmol/L [facility] Hgb Blood Gas 9.7(L) 13.7 - 16.5 gm/dL [facility] Oxyhemoglobin, Arterial 98.7(H) 94.0 - 97.0 % [facility] Carboxyhemoglob in, Arterial 0.3 % [facility] Comment: Nonsmokers: 0.5-1.5% COHB Smokers: Variable, but usually less than 10% Toxic: 20-30% COHB Lethal: Greater than 60% COHB Methemoglobin, Arterial 0.3 <=1.5 % [facility] Na Whole Blood 137 135 - 145 mmol/L [facility] K Whole Blood 6.5(Critic al) 3.5 - 5.0 mmol/L [facility] Comment: Noted by instrumentation chemist. Please note: Patients with WBC >100,000 may have falsely elevated Potassium levels. Contact the Clinical Chemistry Laboratory if there are any questions. ICa Whole Blood 1.06(L) 1.15 - 1.33 mmol/L [facility] Comment: Note: ??Total bilirubin higher than 20 mg/dL may lead to falsely low ionized calcium. CL Whole Blood 117(H) 98 - 107 mmol/L [facility] Gluc Whole Bld 261(H) 65 - 199 mg/dL [facility] Comment:Diabetes: >=200 mg/d L plus symptoms. Lactate WB 1.1 0.5 - 2.2 mmol/L [facility] Blood specimen (specimen) 04/06/2018 2:16 PM EDT 04/06/2018 2:16 PM EDT Lida Peter MD POINT OF CARE TEST O RDERABLES Performing Organization Address [facility]/ZIP Co de Phone Number [facility] [place] [address] * Anaerobic Culture (04/06/2018 2:15 PM EDT) Anaerobic Culture No anaerobic organisms isolated [facility] Fluid specimen (specimen) 04/06/2018 2:15 PM EDT 04/06/2018 2:34 PM EDT Comment:CULTURE LEFT ARM WOU ND Narrative Resulting Agency Comment Spec In Lab Lida Peter MD MICROBIOLOGY - GENER AL ORDERABLES Performing Organization Address [facility] Co de Phone Number [facility] [place] [address] * Body Fluid Culture, Aerobic (04/06/2018 2:15 PM EDT) Body Fluid Culture Few normal cutaneous shaina [facility] Gram Stain Few Neutrophils seen No microorganisms seen. [facility] Fluid specimen (specimen) 04/06/2018 2:15 PM EDT 04/06/2018 2:34 PM EDT Comment:CULTURE LEFT ARM WOU ND Narrative Resulting Agency Comment Spec In Lab Lida Peter MD MICROBIOLOGY - GENER AL ORDERABLES Performing Organization Address [facility] Co de Phone Number [facility] [place] [address] * (ABNORMAL) BLOOD GAS 2 ARTERIAL (04/06/2018 1:53 PM EDT) pH, Arterial 7.24(Criti constance) 7.35 - 7.45 [facility] Comment:Noted by instrumentation chemist. PCO2, Arterial 38 35 - 45 mmHg [facility] PO2, Arterial 388(H) 85 - 104 mmHg [facility] Bicarbonate, Arterial 15.7(L) 20.0 - 26.0 mmol/L [facility] Base Excess, Arterial -11.8(L) -3.0 - 3.0 mmol/L [facility] Hgb Blood Gas 10.8(L) 13.7 - 16.5 gm/dL [facility] Oxyhemoglobin, Arterial 98.8(H) 94.0 - 97.0 % [facility] Carboxyhemoglob in, Arterial 0.3 % [facility] Comment: Nonsmokers: 0.5-1.5% COHB Smokers: Variable, but usually less than 10% Toxic: 20-30% COHB Lethal: Greater than 60% COHB Methemoglobin, Arterial 0.3 <=1.5 % [facility] Na Whole Blood 141 135 - 145 mmol/L [facility] K Whole Blood 6.7(Critic al) 3.5 - 5.0 mmol/L [facility] Comment: Noted by instrumentation chemist. Please note: Patients with WBC >100,000 may have falsely elevated Potassium levels. Contact the Clinical Chemistry Laboratory if there are any questions. ICa Whole Blood 1.00(L) 1.15 - 1.33 mmol/L [facility] Comment: Note: ??Total bilirubin higher than 20 mg/dL may lead to falsely low ionized calcium. CL Whole Blood 117(H) 98 - 107 mmol/L [facility] Gluc Whole Bld 219(H) 65 - 199 mg/dL [facility] Comment:Diabetes: >=200 mg/d L plus symptoms. Lactate WB 1.2 0.5 - 2.2 mmol/L [facility] Blood specimen (specimen) 04/06/2018 1:53 PM EDT 04/06/2018 1:53 PM EDT Lida Peter MD POINT OF CARE TEST O RDERABLES [facility] [place] [address] * Request For 2nd Read CT Head And Spine (04/06/2018 1:41 PM EDT) Anatomical Region Laterality Modality Head, C-spine, T-spine, L-spine SO Impressions 04/06/2018 2:[address] cervical spine: No fracture. CT HEAD: No acute intracranial abnormality. Question posttraumatic changes with encephalomalacic changes left anterior temporal lobe. Asymmetric low-attenuation periventricular white matter left greater than right and subtle evidence of volume loss in the left hemisphere raise the question of ischemic change on the left related to left-sided carotid disease. Clinical correlation recommended. Narrative 04/06/2018 2:01 PM EDT EXAMINATION: REQUEST FOR 2ND READ CT HEAD AND SPINE CLINICAL HISTORY: Presence of any intracranial bleeding?; What Modality is the exam? CT Scan; Body Part (please add comments as necessary): Head and C spine; I believe a reinterpretation of this exam may alter care of Patient. Yes TECHNIQUE: CT head and cervical spine noncontrast COMPARISON: None FINDINGS: CT head: Review of bone windows demonstrates no lytic or blastic disease. Clear appearance visualized mastoid air cells, middle ear cavities,. There is small air-fluid level in the sphenoid sinus with otherwise clear remaining paranasal sinuses. There is no intracranial hemorrhage, mass, mass effect, midline shift or extra-axial fluid collection. There is low attenuation in the periventricular white matter, greater on the left than the right. This may be an indication of left-sided carotid disease. There is encephalomalacic change projecting in the left anterior temporal lobe which may represent posttraumatic change. There is subtle asymmetric appearance of the subarachnoid space on the left versus the right suggesting relative volume loss on the left compared to the right. This too may be an indication of left-sided ischemic change overall. No cortical infarctions. CT cervical spine: Normal alignment of the cervical vertebral bodies. Vertebral bodies are normal in height. No lytic or blastic disease. No fracture deformity. Severe facet arthropathy on the left at the C4-5 level. Procedure Note Sabrina Vargas MD - 04/06/2018 EXAMINATION: REQUEST FOR 2ND READ CT HEAD AND SPINE CLINICAL HISTORY: Presence of any intracranial bleeding?; What Modality isthe exam? CT Scan; Body Part (please add comments as necessary): Head and Cspine; I believe a reinterpretation of this exam may alter care of Patient. Yes TECHNIQUE: CT head and cervical spine noncontrast COMPARISON: None FINDINGS: CT head: Review of bone windows demonstrates no lytic or blasticdisease. Clear appearance visualized mastoid air cells, middle ear cavities,. Thereis small air-fluid level in the sphenoid sinus with otherwise clearremaining paranasal sinuses. There is no intracranial hemorrhage, mass, mass effect, midline shift or extra-axial fluid collection. There is low attenuation in theperiventricular white matter, greater on the left than the right. This may be anindication of left-sided carotid disease. There is encephalomalacic change projecting in the left anterior temporallobe which may represent posttraumatic change. There is subtle asymmetric appearance of the subarachnoid space on theleft versus the right suggesting relative volume loss on the left compared tothe right. This too may be an indication of left-sided ischemic changeoverall. No cortical infarctions. CT cervical spine: Normal alignment of the cervical vertebral bodies.Vertebral bodies are normal in height. No lytic or blastic disease. No fracturedeformity. Severe facet arthropathy on the left at the C4-[address] cervical spine: No fracture. CT HEAD: No acute intracranial abnormality. Question posttraumatic changes with encephalomalacic changes leftanterior temporal lobe. Asymmetric low-attenuation periventricular white matter left greater thanright and subtle evidence of volume loss in the left hemisphere raise thequestion of ischemic change on the left related to left-sided carotid disease.Clinical correlation recommended. 2:01 PM Erwin Hernandez MD IMG OUTSIDE INTERP RETATION ORDERABLES * (ABNORMAL) Urinalysis Microscopic Exam (04/06/2018 1:25 PM EDT) RBC, Urine 21(H) 0 - 3 /HPF [facility] WBC, Urine 8(H) 0 - 3 /HPF [facility] Bacteria, Urine Occasional (A) None /HPF [facility] Squamous Epithelial Cells Raw Data, Urine 1 <=4 /HPF [facility] Granular Casts, Urine 1(H) <=0 /LPF [facility] Urine specimen obtained by clean catch procedure (specimen) 04/06/2018 1:25 PM EDT 04/06/2018 1:30 PM EDT Narrative Resulting Agency Comment Spec In Lab Fabian Burkett MD URINE ORDERABLES [facility] [place], [place] [address] * Rapid Drug Screen w/o Confirmation, Urine (04/06/2018 1:25 PM EDT) Barbiturates Screen, Urine None Detected None Detected [facility] Comment: The barbiturate screen detects [...] Benzodiazepines Screen, Urine None Detected None Detected [facility] Comment: The benzodiazepines screen detects [...] Cocaine Screen, Urine None Detected None Detected [facility] Comment: The cocaine metabolites screen detects benzoylecgonine (Cocaine Metabolite) at concentrations >150 ng/mL. A ? Presumptive Positive? result indicates that the screening result was positive but has not yet been confirmed by a highly-specific method. As with any screen, occasional false positive results from cross-reacting substances may occur. Not for Medico-Legal Purposes. Methadone Metabolites Screen, Urine None Detected None Detected [facility] Comment: The methadone metabolite screen detects EDDP (major methadone metabolite) at concentrations >100 ng/mL. A ? Presumptive Positive? result indicates that the screening result was positive but has not yet been confirmed by a highly-specific method. As with any screen, occasional false positive results from cross-reacting substances may occur. Not for Medico-Legal Purposes. Opiate Screen, Urine None Detected None Detected [facility] Comment: The opiates screen detects [...] Cannabinoid Screen, Urine None Detected None Detected [facility] Comment: The marijuana metabolites screen detects the THC metabolite (95-cxo-1-carboxy-delta 9-THC) at concentrations >20 ng/mL. A ? Presumptive Positive? result indicates that the screening result was positive but has not yet been confirmed by a highly-specific method. As with any screen, occasional false positive results from cross-reacting substances may occur. Not for Medico-Legal Purposes. Oxycodone Screen, Urine None Detected None Detected [facility] Comment: The oxycodone screen detects oxycodone and oxymorphone at concentrations >100 ng/mL. A ? Presumptive Positive? result indicates that the screening result was positive but has not yet been confirmed by a highly-specific method. As with any screen, occasional false positive results from cross-reacting substances may occur. Not for Medico-Legal Purposes. Buprenorphine Screen, Urine None Detected None Detected [facility] Comment: The buprenorphine screen detects buprenorphine at concentrations >5 ng/mL. A ? Presumptive Positive? result indicates that the screening result was positive but has not yet been confirmed by a highly-specific method. As with any screen, occasional false positive results from cross-reacting substances may occur. Not for Medico-Legal Purposes. Fentanyl Screen, Urine None Detected None Detected [facility] Comment: The fentanyl screen detects fentanyl at concentrations >2 ng/mL. A ? Presumptive Positive? result indicates that the screening result was positive but has not yet been confirmed by a highly-specific method. As with any screen, occasional false positive results from cross-reacting substances may occur. Not for Medico-Legal Purposes. Tricyclics Screen, Urine None Detected None Detected [facility] Comment: The tricyclics screen detects [...] Ethanol Screen, Urine None Detected None Detected [facility] Comment:This urine ethanol a ssay detects ethanol at concentrations >/= 100 mg/L. Amphetamines Screen, Urine None Detected None Detected [facility] Comment: The amphetamine screen detects d-amphetamine and d-methamphetamine at concentrations >300 ng/mL. A ? Presumptive Positive? result indicates that the screening result was positive but has not yet been confirmed by a highly-specific method. As with any screen, occasional false positive results from cross-reacting substances may occur. Not for Medico-Legal Purposes. Adulterants Screen, Urine None Detected None Detected [facility] Comment: No adulteration or dilution of this urine sample was detected. All urine samples submitted for urine drugs of abuse analysis are tested for creatinine concentration, pH, and for the presence of oxidants, nitrites, and chromate. Urine specimen (specimen) 04/06/2018 1:25 PM EDT 04/06/2018 1:30 PM EDT Narrative Resulting Agency Comment Spec In Lab Fabian Burkett MD CHEMISTRY ORDERABLES Performing Organization Address City/[facility]/ZIP Co de Phone Number [facility] [place] [address] * (ABNORMAL) Urinalysis with reflex Culture (04/06/2018 1:25 PM EDT) Glucose, Urine Dipstick 50(A) Negative mg/dL [facility] Protein, Urine Dipstick >=500(A) Negative mg/dL [facility] Bilirubin, Urine Dipstick Negative Negative mg/dL [facility] Comment: Clinical correlation required for positive Urine Bilirubin results as false positive may occur with some drugs and drug related products. If a false positive is suspected a serum total bilirubin should be considered if clinically indicated. Urobilinogen, Urine Dipstick Normal Normal mg/dL [facility] pH, Urn (dipstick) 6.0 5.0 - 8.0 [facility] Blood, Urine Dipstick Small(A) Negative mg/dL [facility] Ketone, Urine Dipstick Negative Negative mg/dL [facility] Nitrite, Urine Dipstick Negative Negative [facility] Leukocytes, Urine Dipstick Negative Negative [facility] Appearance, Urine Dipstick Hazy(A) Clear [facility] Specific [place] Urine Automated 1.023 1.002 - 1.030 [facility] Color, Urine Dipstick Yellow Yellow [facility] Reflex to Culture No [facility] Urine specimen obtained by clean catch procedure (specimen) 04/06/2018 1:25 PM EDT 04/06/2018 1:30 PM EDT Narrative Resulting Agency Comment Spec In Lab Erwin Hernandez MD URINE ORDERABLES Performing Organization Address City/[facility]/ZIP Co de Phone Number [facility] [place] [address] * Rapid Drug Screen, Urine (RAUL Request) (04/06/2018 1:25 PM EDT) RAUL Conf Requested No [facility] Comment: Collection date/time has been modified to: 13:25:00. ??Previous collection date/time: 13:03:00. Corrected from No [NA] on 04/06/18 01:32 by Crystal Mueller RAUL Requested See Comment [facility] Comment: Refer to Rapid Drug Screen w/o Confirmation, Urine for results. Collection date/time has been modified to: 13:25:00. ??Previous collection date/time: 13:03:00. Corrected from See Comment [NA] on 04/06/18 01:32 by Crystal Mueller Urine specimen (specimen) 04/06/2018 1:25 PM EDT 04/06/2018 1:30 PM EDT Narrative Resulting Agency Comment Spec In Lab Erwin Hernandez MD URINE ORDERABLES Performing Organization Address City/[facility]/ZIP Co de Phone Number [facility] [place] [address] * CK (04/06/2018 1:15 PM EDT) [facility] Creatine Kinase 168 0 - 200 unit/L [facility] Blood specimen (specimen) Venous Draw / Unknown 04/06/2018 1:15 PM EDT 04/06/2018 2:22 PM EDT Narrative Resulting Agency Comment Spec In Lab Kavon Rob MD CHEMISTRY ORDERABLES Performing Organization Address City/[facility]/ZIP Co de Phone Number [facility] [place] [address] * Scan, Peripheral Blood (04/06/2018 1:15 PM EDT) Plat estimate Normal [facility] RBC Morphology Abnormal [facility] Ovalocytes 1-5 /HPF [facility] [place] Cells 1-5 /HPF [facility] Blood specimen (specimen) 04/06/2018 1:15 PM EDT 04/06/2018 1:24 PM EDT Narrative Resulting Agency Comment Spec In Lab Fabian Burkett MD HEMATOLOGY ORDERABLE S Performing Organization Address City/[facility]/ZIP Co de Phone Number [facility] [place] [address] * ABORH Recheck Status (04/06/2018 1:15 PM EDT) ABORH Type Recheck Completed [facility] Blood specimen (specimen) 04/06/2018 1:15 PM EDT 04/06/2018 1:20 PM EDT Narrative Resulting Agency Comment Spec In Lab Fabian Burkett MD BLOOD BANK LAB ORDER KELLY Performing Organization Address City/[facility]/ZIP Co de Phone Number [facility] [place] [address] * Blue Tube HOLD (04/06/2018 1:15 PM EDT) Blue Hold Sample in lab. [facility] Blood specimen (specimen) Venous Draw / Unknown 04/06/2018 1:15 PM EDT 04/06/2018 1:26 PM EDT Fabian Burkett MD HEMATOLOGY ORDERABLE S Performing Organization Address City/[facility]/ZIP Co de Phone Number [facility] [place] [address] * Gold Tube HOLD (04/06/2018 1:15 PM EDT) Gold Hold Sample in lab. [facility] Blood specimen (specimen) Venous Draw / Unknown 04/06/2018 1:15 PM EDT 04/06/2018 1:25 PM EDT Fabian Burkett MD [place] [address] * Blue Tube HOLD (04/06/2018 1:15 PM EDT) Pathologist [facility] Blue Hold Sample in lab. [facility] Blood specimen (specimen) Venous Draw / Unknown 04/06/2018 1:15 PM EDT 04/06/2018 1:26 PM EDT Fabian Burkett MD HEMATOLOGY ORDERABLE S Performing Organization Address City/[facility]/[place] [address] * (ABNORMAL) Differential, Automated (04/06/2018 1:15 PM EDT) [facility] Neutrophil % 78.7 % [facility] Neutrophil Absolute 12.22(H) 1.70 - 6.10 x10(3)/mc L [facility] Lymph % 10.3 % [facility] Lymphocytes Abs 1.6 0.9 - 3.2 x10(3)/mc L [facility] Monocyte % 9.8 % [facility] Monocyte Abs 1.5(H) 0.3 - 0.9 x10(3)/mc L [facility] Eos % 0.1 % [facility] Eosinophils Abs 0.0 0.0 - 0.4 x10(3)/mc L [facility] Basophil % 0.2 % [facility] Baso Absolute 0.0 0.0 - 0.1 x10(3)/mc L [facility] Immature Gran % 0.90 % [facility] Comment: Immature granulocytes(IG's)percentage and absolute count will include metamyelocytes, myelocytes, and promyelocytes. Blood smears from CBCs yielding IG's will be scanned manually for concordance. If this scan disagrees with the automated IG or if promyelocytes are noted, a manual differential will be performed. Immature Gran Absolute 0.14(H) 0.00 - 0.04 x10(3)/[facility] Blood specimen (specimen) 04/06/2018 1:15 PM EDT 04/06/2018 1:24 PM EDT Narrative Resulting Agency Comment Spec In Lab Fabian Burkett MD HEMATOLOGY ORDERABLE S [facility] [place] [address] * (ABNORMAL) Hemogram (04/06/2018 1:15 PM EDT) White Blood Cell 15.5(H) 4.0 - 9.5 x10(3)/[facility] Red Blood Cell 3.80(L) 4.58 - 5.54 x10(6)/[facility] Hemoglobin 11.5(L) 13.7 - 16.5 gm/dL [facility] Hematocrit 35.2(L) 40.5 - 48.5 % [facility] Mean Cell Volume 92.6 82.9 - 93.1 [facility] Mean Cell Hemoglobin 30.3 27.5 - 32.1 pg [facility] Mean Cell Hemoglobin Concentration 32.7 32.0 - 35.7 gm/dL [facility] Platelet 145 145 - 357 x10(3)/[facility] LAB[facility]ATORY RDW Standard Deviation 53.2(H) 36.0 - 45.0 [facility] RDW coefficient of variation 15.9(H) 11.4 - 13.8 % [facility] Mean Platelet Volume 9.0 7.6 - 12.9 [facility] NRBC% auto 0.0 % [facility] NRBC Absolute 0.000 0.000 - 0.000 x10(3)/[facility] Blood specimen (specimen) 04/06/2018 1:15 PM EDT 04/06/2018 1:24 PM EDT Narrative Resulting Agency Comment Spec In Lab Fabian Burkett MD HEMATOLOGY ORDERABLE S [facility] [place] [address] * Antibody screen (04/06/2018 1:15 PM EDT) Ab Screen Interp Negative [facility] Expires at [id number] on: 04/09/2018 [facility] Blood specimen (specimen) 04/06/2018 1:15 PM EDT 04/06/2018 1:20 PM EDT Narrative Resulting Agency Comment Spec In Lab Fabian Burkett MD BLOOD BANK LAB ORDER KELLY Performing Organization Address City/[facility]/ZIP Co de Phone Number [facility] [place] [address] * ABO/Rh Typing (04/06/2018 1:15 PM EDT) ABORH Type A Pos [facility] Comment: 04/06/2018 15:10 ??CHASDM ABO/Rh determined (Acc# [id number]) to be A pos. Blood specimen (specimen) 04/06/2018 1:15 PM EDT 04/06/2018 1:20 PM EDT Narrative Resulting Agency Comment Spec In Lab Fabian Burkett MD BLOOD BANK LAB ORDER KELLY [facility] [place] [address] * Fibrinogen (04/06/2018 1:15 PM EDT) Fibrinogen 255 200 - 393 mg/dL [facility] Comment: A fibrinogen level >100 mg/dL is adequate for hemostasis in most patients without underlying bleeding disorders. Blood specimen (specimen) 04/06/2018 1:15 PM EDT 04/06/2018 1:24 PM EDT Narrative Resulting Agency Comment Spec In Lab Erwin Hernandez MD HEMATOLOGY ORDERAB LES Performing Organization Address [facility] Co de Phone Number [facility] [place] [address] * Ethanol Level (04/06/2018 1:15 PM EDT) Ethanol <100 <=99 mg/L [facility] Comment: Greater than 800 mg/L (0.08%) should be considered intoxicated. 3400 to 4500 mg/L (0.34 - 0.45%) is considered severe intoxication. Greater than 5500 mg/L (0.55%) is usually fatal. Blood specimen (specimen) 04/06/2018 1:15 PM EDT 04/06/2018 1:24 PM EDT Narrative Resulting Agency Comment Spec In Lab Erwin Hernandez MD CHEMISTRY ORDERABL ES Performing Organization Address [facility] Co de Phone Number [facility] [place] [address] * APTT (04/06/2018 1:15 PM EDT) Partial Thromboplastin Time 31 25 - 37 sec [facility] Comment: The PTT is NOT appropriate for heparin monitoring. Use the Anti-Xa level for heparin monitoring (HEP UFH) or LMWH monitoring (HEP LMW). A PTT less than 37 seconds generally indicates adequate hemostasis. Blood specimen (specimen) 04/06/2018 1:15 PM EDT 04/06/2018 1:24 PM EDT Narrative Resulting Agency Comment Spec In Lab Erwin Hernandez MD HEMATOLOGY ORDERAB LES Performing Organization Address [facility] Co de Phone Number [facility] [place] [address] * (ABNORMAL) Prothrombin Time (04/06/2018 1:15 PM EDT) Prothrombin Time 29.1(H) 9.4 - 12.5 sec [facility] International Normalization Ratio 2.6 [facility] Comment: An INR <2.0 indicates [...] depending on clinical circumstances. Blood specimen (specimen) 04/06/2018 1:15 PM EDT 04/06/2018 1:24 PM EDT Narrative Resulting Agency Comment Spec In Lab Erwin Hernandez MD HEMATOLOGY ORDERAB LES [facility] [place] [address] * (ABNORMAL) Basic Metabolic Panel (non-fasting) (04/06/2018 1:15 PM EDT) Pathologist [facility] Glucose 219(H) 65 - 199 mg/dL [facility] Comment:Diabetes: >=200 mg/d L plus symptoms Blood Urea Nitrogen 39(H) 10 - 20 mg/dL [facility] Creatinine 2.01(H) 0.80 - 1.50 mg/dL [facility] Sodium 140 135 - 145 mmol/L [facility] Potassium 5.2(H) 3.5 - 5.0 mmol/L [facility] Comment: Please note: ??Patients with WBC >100,000 may have falsely elevated Potassium levels. ??For accurate Potassium quantification in these patients send serum separator tube (gold top) for subsequent determinations. ??Contact the Clinical Chemistry Laboratory if there are any questions. Chloride 116(H) 98 - 107 mmol/L [facility] Carbon Dioxide 15(L) 22 - 31 mmol/L [facility] Anion Gap 9 5 - 15 mmol/L [facility] Calcium 4.9(Criti constance) 8.5 - 10.5 mg/dL [facility] Comment:Called by: lorelei, Read back by: misael luong_, Date/Time:04/06/18 14:04. Est Glomerular Filtration Rate 36(L) >=60 mL/min/1. 73 m?? [facility] Comment: The eGFR was calculated using the CKD-EPI equation. As with all creatinine based estimates of kidney function, eGFR values calculated with the CKD-EPI equation are not accurate in patients with acute kidney failure, extremes of body mass or the acutely ill. http://[employer] [email or web address]EAUnk eGFR 42(L) >=60 mL/min/1. 73 m?? [facility] Comment: The eGFR was calculated using the CKD-EPI equation. As with all creatinine based estimates of kidney function, eGFR values calculated with the CKD-EPI equation are not accurate in patients with acute kidney failure, extremes of body mass or the acutely ill. [email or web address] [email or web address]EA[facility]k Blood specimen (specimen) 04/06/2018 1:15 PM EDT 04/06/2018 1:24 PM EDT Narrative Resulting Agency Comment Spec In Lab Erwin Hernandez MD CHEMISTRY ORDERABL ES [facility] [place] [address] * XR Chest AP and Pelvis AP Trauma (Generic) (04/06/2018 1:14 PM EDT) Anatomical Region Laterality Modality N/A Digital Radiogra phy Impressions 04/06/2018 1:27 PM EDT Prominence of the superior mediastinum may be due to technique. The presence of a mediastinal hematoma is not excluded with this study. Opacity in the medial right lung base may be due to atelectasis, pneumonia, aspiration or contusion. There is contrast material in the bladder suggesting that this patient may have had a prior CT scan today. These results were discussed with Dr. Hernandez at the time of interpretation. Narrative 04/06/2018 1:27 PM EDT EXAMINATION: XR CHEST AP AND PELVIS AP TRAUMA (GENERIC) CLINICAL HISTORY: cative blding from AV fistula ?fall TECHNIQUE: Chest AP, pelvis AP COMPARISON: Chest radiograph May 26, [address] September 23, 2017 FINDINGS: Chest The superior mediastinum is prominent in width. There is airspace consolidation in the medial aspect of the right lower lung. No pneumothorax is seen. There is blunting of the right costophrenic angle. An endotracheal tube is present and in a satisfactory position. Pelvis No fracture or dislocation is seen. Contrast material is present in the bladder. A Peraza catheter is present. The hip joints are narrow bilaterally indicating osteoarthritis. Procedure Note Enrique Art MD - 04/06/2018 EXAMINATION: XR CHEST AP AND PELVIS AP TRAUMA (GENERIC) CLINICAL HISTORY: cative blding from AV fistula ?fall TECHNIQUE: Chest AP, pelvis AP COMPARISON: Chest radiograph May 26, [address] September 23, 2017 FINDINGS: Chest The superior mediastinum is prominent in width. There is airspace consolidation in the medial aspect of the right lowerlung. No pneumothorax is seen. There is blunting of the right costophrenicangle. An endotracheal tube is present and in a satisfactory position. Pelvis No fracture or dislocation is seen. Contrast material is present in the bladder. A Peraza catheter ispresent. The hip joints are narrow bilaterally indicating osteoarthritis. IMPRESSION Prominence of the superior mediastinum may be due to technique. Thepresence of a mediastinal hematoma is not excluded with this study. Opacity in the medial right lung base may be due to atelectasis,pneumonia, aspiration or contusion. There is contrast material in the bladder suggesting that this patient mayhave had a prior CT scan today. These results were discussed with Dr. Hernandez at the time ofinterpretation. Erwin Hernandez MD IMG DX ORDERABLES * (ABNORMAL) BLOOD GAS 2 ARTERIAL (04/06/2018 1:14 PM EDT) pH, Arterial 7.14(Criti constance) 7.35 - 7.45 [facility] Comment:Noted by instrumentation chemist. PCO2, Arterial 51(H) 35 - 45 mmHg [facility] PO2, Arterial 38(Critica l) 85 - 104 mmHg [facility] Comment:Noted by instrumentation chemist. Bicarbonate, Arterial 16.7(L) 20.0 - 26.0 mmol/L [facility] Base Excess, Arterial -12.4(L) -3.0 - 3.0 mmol/L [facility] Hgb Blood Gas 12.3(L) 13.7 - 16.5 gm/dL [facility] Oxyhemoglobin, Arterial 69.1(L) 94.0 - 97.0 % [facility] Carboxyhemoglob in, Arterial 0.3 % [facility] Comment: Nonsmokers: 0.5-1.5% COHB Smokers: Variable, but usually less than 10% Toxic: 20-30% COHB Lethal: Greater than 60% COHB Methemoglobin, Arterial 0.4 <=1.5 % [facility] Na Whole Blood 137 135 - 145 mmol/L [facility] K Whole Blood 6.3(Critic al) 3.5 - 5.0 mmol/L [facility] Comment: Noted by instrumentation chemist. Please note: Patients with WBC >100,000 may have falsely elevated Potassium levels. Contact the Clinical Chemistry Laboratory if there are any questions. ICa Whole Blood 1.01(L) 1.15 - 1.33 mmol/L [facility] Comment: Note: ??Total bilirubin higher than 20 mg/dL may lead to falsely low ionized calcium. CL Whole Blood 112(H) 98 - 107 mmol/L [facility] Gluc Whole Bld 258(H) 65 - 199 mg/dL [facility] Comment:Diabetes: >=200 mg/d L plus symptoms. Lactate WB 2.0 0.5 - 2.2 mmol/L [facility] Blood specimen (specimen) 04/06/2018 1:14 PM EDT 04/06/2018 1:14 PM EDT Erwin Hernandez MD POINT OF CARE TEST ORDERABLES Performing Organization Address [facility]/ZIP Co de Phone Number [facility] [place] [address] * Prepare RBC (04/06/2018 1:05 PM EDT) Dispensed? Yes [facility] Blood specimen (specimen) 04/06/2018 1:05 PM EDT 04/06/2018 1:03 PM EDT Erwin Hernandez MD BLOOD BANK PRODUCT ORDERABLES Performing Organization Address [facility] Co de Phone Number [facility] [place] [address] * Film Library- Storage Only CT Chest Abdomen Pelvis (04/06/2018 12:05 AM EDT) Narrative [facility] - 04/06/2018 2:07 PM EDT This exam is for storage only and is auto-finalizing. Fabian Burkett MD [facility] [place] FILM LIBRARY ORD ERABLES Performing Organization Address [facility] Co de Phone Number [place], [place] * SCAN DOC: IMPLANTABLE DEVICES (04/06/2018 12:00 AM EDT) Narrative 04/06/2018 12:00 AM EDT Ordered by an unspecified provider. Scanning Provider MEDIA MGR SCAN EXT O RDR/RSLT * Film Library- Storage Only CT Head And Spine (04/06/2018 12:00 AM EDT) Narrative RAD - 04/06/2018 1:32 PM EDT This exam is for storage only and is auto-finalizing. Fabian Burkett MD [facility] FILM LIBRARY ORD ERABLES Performing Organization Address City/[facility] Co de Phone Number [place], [place] * SCAN DOC: LAB (04/06/2018 12:00 AM EDT) Narrative 04/06/2018 12:00 AM EDT Ordered by an unspecified provider. Scanning Provider MEDIA MGR SCAN EXT O RDR/RSLT * SCAN DOC: OPERATIONS INTELLIGENCE SUPERINTENDENT (04/06/2018 12:00 AM EDT) Anatomical Region Laterality Modality Other Narrative 04/06/2018 12:00 AM EDT Ordered by an unspecified provider. 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 Chest pain, unspecified type H/O kidney transplant Kidney replaced by transplant Hemorrhagic shock Other shock without mention of trauma documented in this encounter Admitting Diagnoses Diagnosis Hemorrhagic shock Other shock without mention of trauma documented in this encounter Administered Medications Inactive Administered Medications - up to 3 most recent administrations Medication Order MAR Action Action Date Dose Rate Site acetaminophen (TYLENOL) 650 mg/20.3 mL oral liquid 1,000 mg 1,000 mg, Oral, EVERY 8 HOURS SCHEDULED, First dose on Wed04/06/18 at 2200, Until Discontinued, May give PO or Per Tube, Maximum dose of acetaminophen is 4000 mg from all sources in 24 hours., Routine Given 04/07/2018 6:07 AM EDT 1,000 mg acetaminophen (TYLENOL) tablet 1,000 mg 1,000 mg, Oral, EVERY 8 HOURS SCHEDULED, First dose on Wed04/06/18 at 2200, Until Discontinued, May give PO or Per Tube, Maximum dose of acetaminophen is 4000 mg from all sources in 24 hours., Routine Given 04/21/2018 9:49 PM EDT 1,000 mg Given 04/21/2018 2:11 PM EDT 1,000 mg Given 04/21/2018 6:11 AM EDT 1,000 mg acetaminophen (TYLENOL) tablet 1,000 mg 1,000 mg, Oral, EVERY 6 HOURS SCHEDULED, First dose (after last modification) on Wed04/22/18 at 0500, Until Discontinued, May give PO or Per Tube, Maximum dose of acetaminophen is 4000 mg from all sources in 24 hours., Routine Given 05/04/2018 6:05 AM EDT 1,000 mg Given 05/03/2018 11:13 PM EDT 1,000 mg Given 05/03/2018 6:22 AM EDT 1,000 mg allopurinol (ZYLOPRIM) tablet 150 mg 150 mg, Oral, DAILY, First dose on Wed04/07/18 at 0900, Until Discontinued, Routine Given 05/04/2018 9:24 AM EDT 150 mg Given 05/03/2018 9:00 AM EDT 150 mg Given 05/02/2018 8:41 AM EDT 150 mg bisacodyl (DULCOLAX) suppository 10 mg 10 mg, Rectal, DAILY PRN, Starting on Wed04/19/18 at 0522, Until Wed05/04/18 at 1520, Constipation, Routine calcium gluconate 1g in sodium chloride 0.9% 100mL 1 g, Intravenous, ONCE, 1 dose, On Wed04/08/18 at 1130, Administer over 60 Minutes, Warning Vesicant/Irritant Medication New Bag 04/08/2018 1:59 PM EDT 1 g 100 mL/hr ceFAZolin (ANCEF) 1g in dextrose 5% 50mL 1 g, Intravenous, EVERY 12 HOURS, First dose (after last modification) on Wed04/08/18 at 2100, Until Discontinued, Administer over 30 Minutes, Indication for (Active or Suspected): Skin/Skin Structure New Bag 04/11/2018 8:48 PM EDT 1 g 100 mL/hr New Bag 04/11/2018 11:41 AM EDT 1 g 100 mL/hr New Bag 04/10/2018 8:50 PM EDT 1 g 100 mL/hr ceFAZolin (ANCEF) 1g in dextrose 5% 50mL 1 g, Intravenous, EVERY 8 HOURS, First dose (after last modification) on Wed04/12/18 at 0900, Until Discontinued, Administer over 30 Minutes, Indication for (Active or Suspected): Skin/Skin Structure New Bag 04/20/2018 12:02 AM EDT 1 g 100 mL/hr New Bag 04/19/2018 4:06 PM EDT 1 g 100 mL/hr Given 04/19/2018 8:03 AM EDT 2 g ceFAZolin (ANCEF) 2g in dextrose 5% 100 mL 2 g, Intravenous, EVERY 8 HOURS, First dose on Wed04/07/18 at 0830, Until Discontinued, Administer over 30 Minutes, Indication for (Active or Suspected): Skin/Skin Structure New Bag 04/08/2018 8:41 AM EDT 2 g 200 mL/hr New Bag 04/08/2018 1:56 AM EDT 2 g 200 mL/hr New Bag 04/07/2018 5:24 PM EDT 2 g 200 mL/hr chlorhexidine (PERIDEX) 0.12 % oral solution 15 mL 15 mL, Oral, 2 TIMES DAILY, First dose on Wed04/06/18 at 2100, Until Discontinued, Swab oral cavity. Ventilator-associated pneumonia prophylaxis, Routine Given 04/07/2018 9:01 AM EDT 15 mLs Given 04/06/2018 8:57 PM EDT 15 mLs ciprofloxacin (CIPRO) tablet 500 mg 500 mg, Oral, 2 TIMES DAILY, First dose on Wed04/26/18 at 0700, Until Discontinued, Routine, Indication for (Active or Suspected): Skin/Skin Structure Given 05/04/2018 6:04 AM EDT 500 mg Given 05/03/2018 6:42 PM EDT 500 mg Given 05/03/2018 6:17 AM EDT 500 mg dextrose 50% IV syringe 50 mL 50 mL (25 g), Intravenous, ONCE, 1 dose, On Wed04/07/18 at 0130, Give 50 mL of dextrose 50% Intravenously immediately followed by regular insulin 10 units Intravenously. Monitor BG one hour after insulin administration and then every two hours X 2 and PRN., Routine Given 04/07/2018 1:24 AM EDT 50 mLs dilTIAZem (CARDIZEM) tablet 30 mg 30 mg, Oral, EVERY 6 HOURS SCHEDULED, First dose on Wed04/12/18 at 0845, Until Discontinued, Routine Given 04/12/2018 1:05 PM EDT 30 mg Given 04/12/2018 9:25 AM EDT 30 mg dilTIAZem (DILTIAZEM CD) ER capsule 120 mg 120 mg, Oral, DAILY, First dose on Wed04/12/18 at 1745, Until Discontinued, DO NOT CRUSH OR OPEN, Routine Given 05/04/2018 9:27 AM EDT 120 mg Given 05/03/2018 9:00 AM EDT 120 mg Given 05/02/2018 8:42 AM EDT 120 mg docusate sodium (COLACE) capsule 100 mg 100 mg, Oral, 2 TIMES DAILY, First dose on 04/07/18 at 0900, Until Discontinued, Routine Given 04/08/2018 8:36 AM EDT 100 mg Given 04/07/2018 8:21 PM EDT 100 mg Given 04/07/2018 8:59 AM EDT 100 mg fentaNYL (PF) 50mcg/mL injection 50 mcg, Intravenous, PER TRAUMA ANALGESIC PROTOCOL, Starting on Wed04/06/18 at 1301, Until Wed04/06/18 at 1748, Pain, Every 5-15 minutes PRN, STAT Given 04/06/2018 1:11 PM EDT 50 mcg fentaNYL 50 mcg/mL infusion 0-200 mcg/hr (0-4 mL/hr), Intravenous, CONTINUOUS, Starting on Wed04/06/18 at 1800, Until Mariza 04/07/18 at 0658, Pain Scale Goal Less than or equal to 3 or to patient verbalized goal. Initial Infusion rate: 50 mcg/hour; Adjust hourly rate by 50% AND bolus 50% of new hourly rate every 15 minutes to achieve goal. Rate not to exceed 200 mcg/hr. Pain assessment every 15 minutes initially and reassess pain 15 minutes after each bolus given. Pain assessment MUST be documented prior to rate change. New Bag 04/06/2018 7:49 PM EDT 25 mcg/hr 0.5 mL/hr fentaNYL bolus from bag 25-100 mcg 25-100 mcg, Intravenous, EVERY 15 MIN PRN, Starting on Wed04/06/18 at 1741, Until Mariza 04/07/18 at 0658, Pain, Refer to infusion order for Bolus instructions. Reassess pain 15 minutes after bolus given., Routine Bolus from Bag 04/07/2018 6:36 AM EDT 50 mcg Bolus from Bag 04/06/2018 7:49 PM EDT 50 mcg fosphenytoin (CeREbyx) 100 mg PE/2 mL 915 mg PE in sodium chloride 0.9% 118.3 mL 915 mg PE (rounded from 916 mg PE = 10 mg PE/kg ? 91.6 kg), Intravenous, ONCE, 1 dose, On Wed04/08/18 at 1515, Administer over 30 Minutes, Maximum IV infusion is 150 mg PE/minute New Bag 04/08/2018 4:16 PM EDT 915 mg PE 236.6 mL/hr fosphenytoin (CeREbyx) 100 mg PE/2 mL solution for injection 100 mg PE 100 mg PE, Intravenous, EVERY 8 HOURS, First dose on 04/09/18 at 0000, Until Discontinued, Maximum IV infusion is 150 mg PE/minute Given 04/11/2018 9:52 AM EDT 100 mg PE Given 04/11/2018 2:12 AM EDT 100 mg PE Given 04/10/2018 6:09 PM EDT 100 mg PE furosemide (LASIX) injection 20 mg 20 mg, Intravenous, ONCE, 1 dose, On Mariza 04/07/18 at 0145 Given 04/07/2018 1:33 AM EDT 20 mg furosemide (LASIX) injection 40 mg 40 mg, Intravenous, ONCE, 1 dose, On Wed04/08/18 at 1130, To be administered prior to blood transfusion Given 04/08/2018 11:19 AM EDT 40 mg furosemide (LASIX) injection 40 mg 40 mg, Intravenous, ONCE, 1 dose, On Wed04/08/18 at 1330, To be administered following 1 unit transfusion Given 04/08/2018 2:45 PM EDT 40 mg heparin (Porcine) subcutaneous injection 5,000 Units 5,000 Units, Subcutaneous, EVERY 12 HOURS SCHEDULED (2 times per day), First dose on Mariza 04/21/18 at 0900, Until Discontinued, Routine Given 05/04/2018 9:29 AM EDT 5,000 Units Given 05/03/2018 9:00 PM EDT 5,000 Units Given 05/03/2018 9:01 AM EDT 5,000 Units hydrALAZINE (APRESOLINE) injection 10 mg 10 mg, Intravenous, EVERY 6 HOURS PRN, Starting on Wed04/06/18 at 1823, Until Wed04/11/18 at 1834, High Blood Pressure, For SBP > 170 Given 04/11/2018 4:42 PM EDT 10 mg Given 04/11/2018 5:04 AM EDT 10 mg Given 04/09/2018 8:12 PM EDT 10 mg hydrALAZINE (APRESOLINE) injection 20 mg 20 mg, Intravenous, EVERY 4 HOURS PRN, Starting on Wed04/11/18 at 1845, Until Wed04/22/18 at 0411, High Blood Pressure, For SBP > 170 Given 04/22/2018 3:15 AM EDT 20 mg Given 04/16/2018 9:06 PM EDT 20 mg Given 04/15/2018 3:26 PM EDT 20 mg hydrALAZINE (APRESOLINE) injection 20 mg 20 mg, Intravenous, EVERY 4 HOURS PRN, Starting on Wed04/22/18 at 0410, Until Wed05/04/18 at 1520, High Blood Pressure, For SBP > 160, For SBP > 160. Please try prn labetalol order first Given 05/03/2018 7:03 AM EDT 20 mg Given 04/30/2018 10:12 AM EDT 20 mg Given 04/25/2018 3:51 AM EDT 20 mg hydrALAZINE (APRESOLINE) tablet 50 mg 50 mg, Oral, 2 TIMES DAILY, First dose on Wed04/12/18 at 2100, Until Discontinued, Take with Food, Routine Given 04/20/2018 8:50 PM EDT 50 mg Given 04/20/2018 9:04 AM EDT 50 mg Given 04/19/2018 9:36 PM EDT 50 mg hydrALAZINE (APRESOLINE) tablet 50 mg 50 mg, Oral, 3 TIMES DAILY, First dose (after last modification) on Wed04/21/18 at 0900, Until Discontinued, Take with Food, Routine Given 05/04/2018 9:32 AM EDT 50 mg Given 05/03/2018 8:37 PM EDT 50 mg Given 05/03/2018 2:55 PM EDT 50 mg HYDROmorphone (DILAUDID) injection 0.3 mg 0.3 mg, Intravenous, EVERY 4 HOURS PRN, Starting on Wed04/07/18 at 0657, Until Wed05/04/18 at 1520, Pain, For pain unrelieved by tylenol, Routine Given 04/10/2018 8:56 PM EDT 0.3 mg Given 04/09/2018 5:55 AM EDT 0.3 mg Given 04/08/2018 4:31 AM EDT 0.3 mg HYDROmorphone (DILAUDID) injection 0.5 mg 0.5 mg, Intravenous, ONCE, 1 dose, On 04/09/18 at 0800, Routine Given 04/09/2018 9:10 AM EDT 0.5 mg insulin regular human VIAL injection 10 Units 10 Units, Intravenous, ONCE, 1 dose, On Mariza 04/07/18 at 0130, Give 50 mL of dextrose 50% Intravenously immediately followed by regular insulin 10 units Intravenously. Monitor BG one hour after insulin administration and then every two hours X 2 and PRN., Routine Given 04/07/2018 1:23 AM EDT 10 Units labetalol (NORMODYNE,TRANDATE) injection 20 mg 20 mg, Intravenous, EVERY 4 HOURS PRN, Starting on Wed04/06/18 at 1823, Until Wed04/24/18 at 2335, High Blood Pressure, For SBp > 170. Use before hydralazine, Do not give if HR < 80., Routine Given 04/15/2018 2:40 PM EDT 20 mg Given 04/15/2018 4:36 AM EDT 20 mg Given 04/14/2018 4:40 AM EDT 20 mg labetalol (NORMODYNE,TRANDATE) injection 20 mg 20 mg, Intravenous, EVERY 4 HOURS PRN, Starting on Wed04/24/18 at 2335, Until Wed05/04/18 at 1520, High Blood Pressure, For SBP > 160. Use before hydralazine, Do not give if HR < 80., Routine lactated Ringers 1,000 mL IV bolus at 250 mL/hr, Intravenous, ONCE, 1 dose, On Wed04/24/18 at 0745 New 04/24/2018 8:30 AM EDT 250 mL/hr lactated Ringers infusion 100 mL/hr, Intravenous, CONTINUOUS, Starting on Wed04/06/18 at 1800, Until Mariza 04/07/18 at 0812 New Bag 04/07/2018 4:16 AM EDT 100 mL/hr 100 mL/hr Rate/Dose Verify 04/06/2018 8:00 PM EDT 100 mL/hr 100 mL/ hr New Bag 04/06/2018 5:59 PM EDT 100 mL/hr 100 mL/hr lactated Ringers infusion 50 mL/hr, Intravenous, CONTINUOUS, Starting on Wed04/07/18 at 0830, Until Mariza 04/07/18 at 1318 New Bag 04/07/2018 9:06 AM EDT 50 mL/hr 50 mL/hr lactated Ringers infusion 75 mL/hr, Intravenous, CONTINUOUS, Starting on Wed04/13/18 at 0915, Until Wed04/13/18 at 1823 New Bag 04/13/2018 9:08 AM EDT 75 mL/hr 75 mL/hr levETIRAcetam (KEPPRA) 1,000 mg in sodium chloride (ISO-OSM) 100 mL 1,000 mg (1 g), Intravenous, at 400 mL/hr, ONCE, 1 dose, On Wed04/08/18 at 1230, STAT Given 04/08/2018 12:46 PM EDT 1,000 mg 400 mL/h r levETIRAcetam (KEPPRA) 500 mg in sodium chloride 0.82% 100 mL 500 mg, Intravenous, at 400 mL/hr, EVERY 12 HOURS SCHEDULED (2 times per day), First dose on Wed04/06/18 at 2100, Until Discontinued, Routine New Bag 04/06/2018 8:57 PM EDT 500 mg 400 mL/hr levETIRAcetam (KEPPRA) tablet 250 mg 250 mg, Oral, DAILY, First dose on Wed04/07/18 at 2100, Until Discontinued, Routine Given 05/03/2018 9:09 PM EDT 250 mg Given 05/02/2018 9:01 PM EDT 250 mg Given 05/01/2018 8:23 PM EDT 250 mg levETIRAcetam (KEPPRA) tablet 500 mg 500 mg, Oral, DAILY, First dose on Wed04/07/18 at 0900, Until Discontinued, Routine Given 05/04/2018 9:27 AM EDT 500 mg Given 05/03/2018 8:59 AM EDT 500 mg Given 05/02/2018 8:42 AM EDT 500 mg levothyroxine (SYNTHROID) injection 44 mcg 44 mcg, Intravenous, EVERY MORNING, First dose on Wed04/07/18 at 0600, Until Discontinued, Administer over 1 Minutes Given 04/07/2018 6:06 AM EDT 44 mcg 132 mL/hr levothyroxine (SYNTHROID) tablet 88 mcg 88 mcg, Oral, EVERY MORNING, First dose on Wed04/08/18 at 0600, Until Discontinued, Routine Given 05/04/2018 6:05 AM EDT 88 mcg Given 05/03/2018 6:18 AM EDT 88 mcg Given 05/02/2018 5:03 AM EDT 88 mcg LORazepam (ATIVAN) injection 1 mg 1 mg, Intravenous, ONCE, 1 dose, On Wed04/08/18 at 1215, Routine Given 04/08/2018 12:05 PM EDT 1 mg LORazepam (ATIVAN) injection 2 mg 2 mg, Intravenous, EVERY 4 HOURS PRN, Starting on Wed04/08/18 at 1422, Until Wed05/04/18 at 1520, Seizures, Alert team of seizure then retrieve medication, Routine Given 04/09/2018 6:32 PM EDT 2 mg Given 04/09/2018 2:11 PM EDT 1 mg losartan (COZAAR) tablet 25 mg 25 mg, Oral, EVERY MORNING, First dose on Wed04/16/18 at 0700, Until Discontinued, Routine Given 04/21/2018 6:11 AM EDT 25 mg Given 04/20/2018 6:05 AM EDT 25 mg Given 04/19/2018 6:39 AM EDT 25 mg losartan (COZAAR) tablet 25 mg 25 mg, Oral, ONCE, 1 dose, On Wed04/15/18 at 1615, Routine Given 04/15/2018 4:39 PM EDT 25 mg losartan (COZAAR) tablet 50 mg 50 mg, Oral, EVERY MORNING, First dose (after last modification) on Wed04/22/18 at 0700, Until Discontinued, Routine Given 05/04/2018 6:05 AM EDT 50 mg Given 05/03/2018 6:20 AM EDT 50 mg Given 05/02/2018 6:07 AM EDT 50 mg magnesium hydroxide (MILK OF MAGNESIA) oral suspension 10 mL 10 mL, Oral, ONCE, 1 dose, On Wed04/08/18 at 1445, 10 mL concentrate = 30 mL regular, Routine Given 04/08/2018 2:40 PM EDT 10 mLs metoprolol tartrate (LOPRESSOR) tablet 25 mg 25 mg, Oral, EVERY 12 HOURS SCHEDULED (2 times per day), First dose on Wed04/07/18 at 0900, Until Discontinued, Routine Given 04/08/2018 8:36 AM EDT 25 mg Given 04/07/2018 8:22 PM EDT 25 mg Given 04/07/2018 8:59 AM EDT 25 mg metoprolol tartrate (LOPRESSOR) tablet 50 mg 50 mg, Oral, EVERY 8 HOURS SCHEDULED, First dose on Wed04/08/18 at 1400, Until Discontinued, Hold for HR<55, Routine Given 05/04/2018 6:05 AM EDT 50 mg Given 05/03/2018 9:10 PM EDT 50 mg Given 05/03/2018 2:54 PM EDT 50 mg metroNIDAZOLE (FLAGYL) tablet 500 mg 500 mg, Oral, 2 TIMES DAILY, First dose on Wed04/26/18 at 0900, Until Discontinued, Routine, Indication for (Active or Suspected): Anaerobic infection-Skin/Skin Structure Given 05/04/2018 9:23 AM EDT 500 mg Given 05/03/2018 8:37 PM EDT 500 mg Given 05/03/2018 8:59 AM EDT 500 mg mycophenolate (CELLCEPT) capsule 250 mg 250 mg, Oral, 2 TIMES DAILY, First dose on Wed04/07/18 at 0700, Until Discontinued, DO NOT CRUSH OR OPEN Administer to patient on empty stomach (1 hour before or two hours after a meal)., Routine Given 05/04/2018 6:05 AM EDT 250 mg Given 05/03/2018 6:42 PM EDT 250 mg Given 05/03/2018 6:17 AM EDT 250 mg ondansetron (ZOFRAN) injection 4 mg 4 mg, Intravenous, EVERY 8 HOURS PRN, Starting on Wed04/07/18 at 0936, Until Wed05/04/18 at 1520, Nausea Given 04/15/2018 8:14 AM EDT 4 mg Given 04/08/2018 4:01 AM EDT 4 mg Given 04/07/2018 9:43 AM EDT 4 mg oxyCODONE (ROXICODONE) immediate release tablet 10 mg 10 mg, Oral, EVERY 4 HOURS PRN, Starting on 04/10/18 at 0736, Until Wed05/04/18 at 1520, Pain, moderate pain (4-6), May give additional 5 mg in 30 minutes once if pain not relieved., Routine Given 04/26/2018 5:34 PM EDT 10 mg Given 04/26/2018 12:55 PM EDT 10 mg Given 04/25/2018 11:00 AM EDT 10 mg oxyCODONE (ROXICODONE) immediate release tablet 15 mg 15 mg, Oral, EVERY 4 HOURS PRN, Starting on 04/10/18 at 0736, Until Wed05/04/18 at 1520, Pain, severe pain or opiate tolerant patient (7-10), Do not start patient with 15 mg dose. Do not give 15 mg if patient is opiate niave., Routine Given 04/15/2018 6:38 AM EDT 15 mg oxyCODONE (ROXICODONE) immediate release tablet 20 mg 20 mg, Oral, ONCE, 1 dose, On Wed04/15/18 at 1030, Please give at 1030am today in place of PRN dose. For vac dressing change at 1100., Routine Given 04/15/2018 10:23 AM EDT 20 mg oxyCODONE (ROXICODONE) immediate release tablet 20 mg 20 mg, Oral, ONCE, 1 dose, On Wed04/18/18 at 1200, To be given when instructed by Vascular Surgery for dressing change, Routine Given 04/18/2018 12:22 PM EDT 20 mg oxyCODONE (ROXICODONE) immediate release tablet 5 mg 5 mg, Oral, EVERY 4 HOURS PRN, Starting on Wed04/10/18 at 0736, Until Wed05/04/18 at 1520, Pain, mild pain (1-3), May give additional 5 mg in 30 minutes once if pain not relieved., Routine oxyCODONE (ROXICODONE) immediate release tablet 5 mg 5 mg, Oral, ONCE, 1 dose, On Wed05/02/18 at 0500, Routine Given 05/02/2018 5:03 AM EDT 5 mg oxyCODONE (ROXICODONE) immediate release tablet 5 mg 5 mg, Oral, ONCE, 1 dose, On Wed05/02/18 at 0530, This for for the vac removal this morning on . Please give now., Routine Given 05/02/2018 5:19 AM EDT 5 mg pantoprazole (PROTONIX) injection 20 mg 20 mg, Intravenous, 2 TIMES DAILY, First dose on Wed04/06/18 at 2100, Until Discontinued Given 04/06/2018 9:01 PM EDT 2 0 mg pantoprazole (PROTONIX) tablet 20 mg 20 mg, Oral, 2 TIMES DAILY, First dose on Wed04/07/18 at 0900, Until Discontinued, DO NOT CRUSH OR OPEN Given 05/04/2018 9:22 AM EDT 20 mg Given 05/03/2018 8:37 PM EDT 20 mg Given 05/03/2018 9:02 AM EDT 20 mg piperacillin-tazobactam (ZOSYN) 3.375 g vial attach to sodium chloride 0.9% 50 mL Mini-Bag Plus 3.375 g, Intravenous, EVERY 12 HOURS, First dose on Wed04/19/18 at 1700, Until Discontinued, Administer over 4 Hours, Warning Vesicant/Irritant Medication , Indication for (Active or Suspected): Skin/Skin Structure New Bag 04/22/2018 5:10 AM EDT 3.375 g 12.5 mL/hr New Bag 04/21/2018 5:00 PM EDT 3.375 g 12.5 mL/hr New Bag 04/21/2018 4:10 AM EDT 3.375 g 12.5 mL/hr piperacillin-tazobactam (ZOSYN) 3.375 g vial attach to sodium chloride 0.9% 50 mL Mini-Bag Plus 3.375 g, Intravenous, EVERY 8 HOURS, First dose (after last modification) on Wed04/22/18 at 1430, Until Discontinued, Administer over 4 Hours, Dose adjusted per P/T policy Warning Vesicant/Irritant Medication , Indication for (Active or Suspected): Skin/Skin Structure New Bag 04/25/2018 11:07 PM EDT 3.375 g 12.5 mL/hr New Bag 04/25/2018 4:06 PM EDT 3.375 g 12.5 mL/hr New Bag 04/25/2018 5:45 AM EDT 3.375 g 12.5 mL/hr polyethylene glycol (MIRALAX) packet 17 g 17 g, Oral, DAILY, First dose on Wed04/19/18 at 0900, Until Discontinued, Routine Given 05/04/2018 9:21 AM EDT 17 g Given 05/03/2018 9:01 AM EDT 17 g Given 05/02/2018 9:07 AM EDT 17 g senna-docusate (PERICOLACE) 8.6-50 mg per tablet 1 tablet 1 tablet, Oral, 2 TIMES DAILY, First dose on Wed04/08/18 at 1445, Until Discontinued, Routine Given 04/18/2018 9:34 PM EDT 1 tablet Given 04/18/2018 9:27 AM EDT 1 tablet Given 04/17/2018 9:36 PM EDT 1 tablet senna-docusate (PERICOLACE) 8.6-50 mg per tablet 2 tablet 2 tablet, Oral, 2 TIMES DAILY, First dose on Wed04/19/18 at 0900, Until Discontinued, Routine Given 05/04/2018 9:28 AM EDT 2 tablets Given 05/03/2018 8:38 PM EDT 2 tablets Given 05/03/2018 9:01 AM EDT 2 tablets sodium bicarbonate tablet 650 mg 650 mg, Oral, 3 TIMES DAILY, First dose on Wed04/12/18 at 1745, Until Discontinued, Routine Given 05/04/2018 9:22 AM EDT 650 mg Given 05/03/2018 8:37 PM EDT 650 mg Given 05/03/2018 2:55 PM EDT 650 mg sodium chloride 0.45% 1,000 mL with sodium bicarbonate 75 mEq infusion at 50 mL/hr, Intravenous, CONTINUOUS, Starting on Wed04/07/18 at 1800, Until Wed04/11/18 at 1815 New Bag 04/10/2018 12:23 AM EDT 50 mL/hr New Bag 04/09/2018 6:52 AM EDT 50 mL/hr New Bag 04/08/2018 5:39 PM EDT 50 mL/hr sodium chloride 0.9 % flush 5 mL 5 mL, Intravenous, EVERY 12 HOURS, First dose on Wed04/06/18 at 1800, Until Discontinued, Routine Given 05/04/2018 9:00 AM EDT 5 mLs Given 05/03/2018 8:38 PM EDT 5 mLs Given 05/03/2018 9:02 AM EDT 5 mLs sodium chloride 0.9% infusion 50 mL/hr, Intravenous, CONTINUOUS, Starting on Mariza 04/07/18 at 1345, Until Mariza 04/07/18 at 1659 New Bag 04/07/2018 1:29 PM EDT 50 mL/hr 50 mL/hr sodium chloride 0.9% infusion 75 mL/hr, Intravenous, CONTINUOUS, Starting on Mariza 04/14/18 at 0000, Until 04/16/18 at 0819 Rate/Dose Verify 04/16/2018 2:10 AM EDT 75 mL/hr 75 mL/hr New Bag 04/15/2018 7:18 PM EDT 75 mL/hr 75 mL/hr New Bag 04/15/2018 4:40 AM EDT 75 mL/hr 75 mL/hr tacrolimus (PROGRAF) capsule 1 mg 1 mg, Oral, 2 TIMES DAILY, First dose on Mariza 04/07/18 at 0900, Until Discontinued, Routine Given 04/13/2018 8:36 AM EDT 1 mg Given 04/12/2018 8:35 PM EDT 1 mg Given 04/12/2018 8:08 AM EDT 1 mg tacrolimus (PROGRAF) capsule 1 mg 1 mg, Oral, NIGHTLY, First dose (after last modification) on Wed04/13/18 at 2100, Until Discontinued, Routine Given 05/03/2018 8:37 PM EDT 1 mg Given 05/02/2018 9:02 PM EDT 1 mg Given 05/01/2018 8:23 PM EDT 1 mg tacrolimus (PROGRAF) capsule 1.5 mg 1.5 mg, Oral, DAILY, First dose on Wed04/13/18 at 1700, Until Discontinued, Routine Given 05/04/2018 9:22 AM EDT 1.5 mg Given 05/03/2018 9:00 AM EDT 1.5 mg Given 05/02/2018 8:43 AM EDT 1.5 mg vancomycin 1 g in 0.9 % sodium chloride 200 mL 1 g, Intravenous, at 200 mL/hr, EVERY 24 HOURS, First dose on Wed04/24/18 at 1315, Until Discontinued, Maximum infusion rate is 1 gram/hour. If flushing of the face, neck, upper body, arms, and/or back occurs decrease infusion rate by 50% to reduce the severity of symptoms. This medication may have an associated drug lab level. Please see MAR for scheduled level. Warning Vesicant/Irritant Medication , Routine, Indication for (Active or Suspected): Bacteremia/Sepsis New Bag 04/25/2018 12:26 PM EDT 1 g 200 mL/hr New Bag 04/24/2018 1:57 PM EDT 1 g 200 mL/hr vancomycin 1 g in 0.9 % sodium chloride 200 mL 1 g, Intravenous, at 200 mL/hr, EVERY 24 HOURS, First dose (after last modification) on Wed04/26/18 at 1315, Until Discontinued, Maximum infusion rate is 1 gram/hour. If flushing of the face, neck, upper body, arms, and/or back occurs decrease infusion rate by 50% to reduce the severity of symptoms. This medication may have an associated drug lab level. Please see MAR for scheduled level. Warning Vesicant/Irritant Medication , Routine, Indication for (Active or Suspected): Bacteremia/Sepsis New Bag 04/28/2018 1:27 PM EDT 1 g 2 00 mL/hr New Bag 04/27/2018 2:35 PM EDT 1 g 200 mL/hr New Bag 04/26/2018 3:11 PM EDT 1 g 200 mL/hr vancomycin 500 mg vial attach to sodium chloride 0.9% 100 mL Mini-Bag Plus 500 mg, Intravenous, at 200 mL/hr, ONCE, 1 dose, On Wed04/29/18 at 1930, Maximum infusion rate is 1 gram/hour. If flushing of the face, neck, upper body, arms, and/or back occurs decrease infusion rate by 50% to reduce the severity of symptoms. This medication may have an associated drug lab level. Please see MAR for scheduled level. Warning Vesicant/Irritant Medication , Routine, Indication for (Active or Suspected): Bacteremia/Sepsis New Bag 04/29/2018 8:38 PM EDT 500 mg 2 00 mL/hr vancomycin 500 mg vial attach to sodium chloride 0.9% 100 mL Mini-Bag Plus 500 mg, Intravenous, at 200 mL/hr, ONCE, 1 dose, On Wed04/30/18 at 2230, Maximum infusion rate is 1 gram/hour. If flushing of the face, neck, upper body, arms, and/or back occurs decrease infusion rate by 50% to reduce the severity of symptoms. This medication may have an associated drug lab level. Please see MAR for scheduled level. Warning Vesicant/Irritant Medication , Routine, Indication for (Active or Suspected): Bacteremia/Sepsis New Bag 04/30/2018 10:30 PM EDT 500 mg 200 mL/hr vancomycin 500 mg vial attach to sodium chloride 0.9% 100 mL Mini-Bag Plus 500 mg, Intravenous, at 200 mL/hr, EVERY 24 HOURS, First dose (after last reorder) on Wed05/01/18 at 1800, Until Discontinued, Maximum infusion rate is 1 gram/hour. If flushing of the face, neck, upper body, arms, and/or back occurs decrease infusion rate by 50% to reduce the severity of symptoms. This medication may have an associated drug lab level. Please see MAR for scheduled level. Warning Vesicant/Irritant Medication , Routine, Indication for (Active or Suspected): Bacteremia/Sepsis New Bag 05/03/2018 7:24 PM EDT 500 mg 2 00 mL/hr New Bag 05/02/2018 5:36 PM EDT 500 mg 200 mL/hr New Bag 05/01/2018 5:59 PM EDT 500 mg 200 mL/hr Vancomycin Level - MAR Order Reminder NOT APPLICABLE, ONCE, On Wed05/06/18 at 1730, 1 dose, This alert will be scheduled by a pharmacist after order placement. This order is a reminder to nursing staff to release and draw the PRN drug level at the specified time. It may be necessary to contact phlebotomy 60 minutes prior to the scheduled due time to assure a timely blood draw. documented in this encounter Active and Recently Administered Medications Times are shown in EDT. Scheduled Medication Order 05/02/2018 05/03/2018 05/04/2018 acetaminophen (TYLENOL) tablet 1,000 mg(Linked Group 1) 1,000 mg, Oral, EVERY 6 HOURS SCHEDULED, First dose (after last modification) on Wed04/22/18 at 0500, Until Discontinued, May give PO or Per Tube, Maximum dose of acetaminophen is 4000 mg from all sources in 24 hours., Routine 0000 (Not Given - Provider: Naz Robbins RN - Reason: Patient Unable)0503 (Given - Provider: Naz Robbins RN)1130 (Given - Provider: Lalitha Mack, SAVANNA)1733 (Given - Provider: Lalitha Mack, SAVANNA) 0000 (Not Given - Provider: Torri Angelo RN - Reason: Patient/family refused)0622 (Given - Provider: Torri Angelo RN)1200 (Not Given - Provider: Domi Rodriguez RN - Reason: Patient/family refused)1800 (Not Given - Provider: Domi Rodriguez RN - Reason: Patient/family refused)2313 (Given - Provider: Margarita Blevins, SAVANNA) 0605 (Given - Provider: Margarita Blevins, SAVANNA)1200 (Due) allopurinol (ZYLOPRIM) tablet 150 mg 150 mg, Oral, DAILY, First dose on Mariza 04/07/18 at 0900, Until Discontinued, Routine 0841 (Given - Provider: Torri Adame RN) 0900 (Given - Provider: Domi Rodriguez, SAVANNA) 0924 (Given - Provider: Danny Quispe, SAVANNA) ciprofloxacin (CIPRO) tablet 500 mg 500 mg, Oral, 2 TIMES DAILY, First dose on Wed04/26/18 at 0700, Until Discontinued, Routine, Indication for (Active or Suspected): Skin/Skin Structure 06 (Given - Provider: Naz Robbins RN)1957 (Given - Provider: Torri Angelo RN) 06 (Given - Provider: Torri Angelo RN)184 (Given - Provider: Domi Rodriguez, SAVANNA) 0604 (Given - Provider: Margarita Blevins, SAVANNA) dilTIAZem (DILTIAZEM CD) ER capsule 120 mg 120 mg, Oral, DAILY, First dose on Wed04/12/18 at 1745, Until Discontinued, DO NOT CRUSH OR OPEN, Routine 0842 (Given - Provider: Torri Adame RN) 0900 (Given - Provider: Domi Rodriguez RN) 0927 (Given - Provider: Danny Quispe, SAVANNA) heparin (Porcine) subcutaneous injection 5,000 Units 5,000 Units, Subcutaneous, EVERY 12 HOURS SCHEDULED (2 times per day), First dose on Wed04/21/18 at 0900, Until Discontinued, Routine 0842 (Given - Provider: Torri Adame RN)2103 (Given - Provider: Torri Angelo, SAVANNA) 0901 (Given - Provider: Domi Rodriguez, SAVANNA)2100 (Given - Provider: Margarita Blevins, SAVANNA) 0929 (Given - Provider: Danny Quispe, SAVANNA) hydrALAZINE (APRESOLINE) tablet 50 mg 50 mg, Oral, 3 TIMES DAILY, First dose (after last modification) on Wed04/21/18 at 0900, Until Discontinued, Take with Food, Routine 09 (Given - Provider: Lalitha Mack, SAVANNA)1434 (Given - Provider: Lalitha Mack, SAVANNA)2058 (Given - Provider: Torri Angelo, SVAANNA) 0900 (Given - Provider: Domi Rodriguez, SAVANNA)1455 (Given - Provider: Domi Rodriguez, SAVANNA)2036 (Given - Provider: Margarita Blevins RN) 0932 (Given - Provider: Danny Quispe, SAVANNA) levETIRAcetam (KEPPRA) tablet 250 mg 250 mg, Oral, DAILY, First dose on Wed04/07/18 at 2100, Until Discontinued, Routine 2100 (Given - Provider: Torri Angelo, SAVANNA) 2108 (Given - Provider: Margarita Blevins, SAVANNA) levETIRAcetam (KEPPRA) tablet 500 mg 500 mg, Oral, DAILY, First dose on Wed04/07/18 at 0900, Until Discontinued, Routine 0842 (Given - Provider: Torri Adame RN) 0859 (Given - Provider: Domi Rodriguez, SAVANNA) 0927 (Given - Provider: Danny Quispe RN) levothyroxine (SYNTHROID) tablet 88 mcg 88 mcg, Oral, EVERY MORNING, First dose on Wed04/08/18 at 0600, Until Discontinued, Routine 0503 (Given - Provider: Naz Robbins RN) 0618 (Given - Provider: Torri Angelo RN) 0605 (Given - Provider: Margarita Blevins RN) losartan (COZAAR) tablet 50 mg 50 mg, Oral, EVERY MORNING, First dose (after last modification) on Wed04/22/18 at 0700, Until Discontinued, Routine 0607 (Given - Provider: Naz Robbins RN) 0620 (Given - Provider: Torri Angelo, SAVANNA) 0605 (Given - Provider: Margarita Blevins RN) metoprolol tartrate (LOPRESSOR) tablet 50 mg 50 mg, Oral, EVERY 8 HOURS SCHEDULED, First dose on Wed04/08/18 at 1400, Until Discontinued, Hold for HR<55, Routine 0503 (Given - Provider: Naz Robbins RN)1434 (Not Given - Provider: Lalitha Mack RN - Reason: Contraindicated)2200 (Not Given - Provider: Torri Angelo RN - Reason: Order parameters not met) 0619 (Given - Provider: Torri Angelo RN)1454 (Given - Provider: Domi Rodriguez, SAVANNA)2110 (Given - Provider: Margarita Blevins RN) 06 (Given - Provider: Margarita Blevins RN) metroNIDAZOLE (FLAGYL) tablet 500 mg 500 mg, Oral, 2 TIMES DAILY, First dose on Wed04/26/18 at 0900, Until Discontinued, Routine, Indication for (Active or Suspected): Anaerobic infection-Skin/Skin Structure 0841 (Given - Provider: Torri Adame RN)2100 (Given - Provider: Torri Angelo RN) 08 (Given - Provider: Domi Rodriguez, RN)2036 (Given - Provider: Margarita Blevins RN) 922 (Given - Provider: Danny Quispe RN) mycophenolate (CELLCEPT) capsule 250 mg 250 mg, Oral, 2 TIMES DAILY, First dose on Wed04/07/18 at 0700, Until Discontinued, DO NOT CRUSH OR OPEN Administer to patient on empty stomach (1 hour before or two hours after a meal)., Routine 606 (Given - Provider: Naz Robbins RN)1957 (Given - Provider: Torri Angelo RN) 06 (Given - Provider: Torri Angelo, SAVANNA)184 (Given - Provider: Domi Rodriguez, RN) 06 (Given - Provider: Margarita Blevins RN) oxyCODONE (ROXICODONE) immediate release tablet 5 mg (COMPLETED) 5 mg, Oral, ONCE, 1 dose, On Wed05/02/18 at 0500, Routine 0503 (Given - Provider: Naz Robbins RN) oxyCODONE (ROXICODONE) immediate release tablet 5 mg (COMPLETED) 5 mg, Oral, ONCE, 1 dose, On Wed05/02/18 at 0530, This for for the vac removal this morning on . Please give now., Routine 05 (Given - Provider: Naz Robbins RN) pantoprazole (PROTONIX) tablet 20 mg 20 mg, Oral, 2 TIMES DAILY, First dose on Wed04/07/18 at 0900, Until Discontinued, DO NOT CRUSH OR OPEN 0842 (Given - Provider: Torri Adame RN)2101 (Given - Provider: Torri Angelo RN) 09 (Given - Provider: Domi Rodriguez RN)2036 (Given - Provider: Margarita Blevins, SAVANNA) 09 (Given - Provider: Danny Quispe, SAVANNA) polyethylene glycol (MIRALAX) packet 17 g 17 g, Oral, DAILY, First dose on Wed04/19/18 at 0900, Until Discontinued, Routine 0907 (Given - Provider: Lalitha Mack RN) 09 (Given - Provider: Domi Rodriguez RN) 920 (Given - Provider: Danny Quispe, SAVANNA) senna-docusate (PERICOLACE) 8.6-50 mg per tablet 2 tablet 2 tablet, Oral, 2 TIMES DAILY, First dose on Wed04/19/18 at 0900, Until Discontinued, Routine 09 (Not Given - Provider: Lalitha Mack RN - Reason: Order parameters not met - Comment: +BM 05/01 - soft)2100 (Given - Provider: Torri Angelo RN) 900 (Given - Provider: Domi Rodriguez RN)2037 (Given - Provider: Margarita Blevins RN) 09 (Given - Provider: Danny Quispe, SAVANNA) sodium bicarbonate tablet 650 mg 650 mg, Oral, 3 TIMES DAILY, First dose on Wed04/12/18 at 1745, Until Discontinued, Routine 0907 (Given - Provider: Lalitha Mack RN)1435 (Given - Provider: Lalitha Mack RN)2101 (Given - Provider: Torri Angelo, SAVANNA) 0859 (Given - Provider: Domi Rodriguez RN)1455 (Given - Provider: Domi Rodriguez RN)2036 (Given - Provider: Margarita Blevins, SAVANNA) 09 (Given - Provider: Danny Quispe, SAVANNA) sodium chloride 0.9 % flush 5 mL 5 mL, Intravenous, EVERY 12 HOURS, First dose on Wed04/06/18 at 1800, Until Discontinued, Routine 0848 (Given - Provider: Torri Adame, SAVANNA)2103 (Not Given - Provider: Torri Angelo RN - Reason: See comment - Comment: Infusing) 09 (Given - Provider: Domi Rodriguez RN)2037 (Given - Provider: Margarita Blevins RN) 0900 (Given - Provider: Danny Quispe, SAVANNA) tacrolimus (PROGRAF) capsule 1 mg 1 mg, Oral, NIGHTLY, First dose (after last modification) on Wed04/13/18 at 2100, Until Discontinued, Routine 2101 (Given - Provider: Torri Angelo, SAVANNA) 2036 (Given - Provider: Margarita Blevins, SAVANNA) tacrolimus (PROGRAF) capsule 1.5 mg 1.5 mg, Oral, DAILY, First dose on Wed04/13/18 at 1700, Until Discontinued, Routine 0843 (Given - Provider: Torri Adame, RN) 0900 (Given - Provider: Domi Rodriguez, RN) 09 (Given - Provider: Danny Quispe, SAVANNA) vancomycin 500 mg vial attach to sodium chloride 0.9% 100 mL Mini-Bag Plus 500 mg, Intravenous, at 200 mL/hr, EVERY 24 HOURS, First dose (after last reorder) on Wed05/01/18 at 1800, Until Discontinued, Maximum infusion rate is 1 gram/hour. If flushing of the face, neck, upper body, arms, and/or back occurs decrease infusion rate by 50% to reduce the severity of symptoms. This medication may have an associated drug lab level. Please see MAR for scheduled level. Warning Vesicant/Irritant Medication , Routine, Indication for (Active or Suspected): Bacteremia/Sepsis 1735 (New Bag - Provider: Lalitha Mack RN)1805 (Stopped - Provider: Torri Angelo, SAVANNA) 1923 (New Bag - Provider: Margarita Blevins RN)1953 (Stopped - Provider: Margarita Blevins RN) Vancomycin Level - MAR Order Reminder NOT APPLICABLE, ONCE, On Wed05/03/18 at 1730, 1 dose, This alert will be scheduled by a pharmacist after order placement. This order is a reminder to nursing staff to release and draw the PRN drug level at the specified time. It may be necessary to contact phlebotomy 60 minutes prior to the scheduled due time to assure a timely blood draw. 1729 (Lab Order Released - Provider: Domi Rodriguez, SAVANNA) Vancomycin Level - MAR Order Reminder NOT APPLICABLE, ONCE, On Wed05/06/18 at 1730, 1 dose, This alert will be scheduled by a pharmacist after order placement. This order is a reminder to nursing staff to release and draw the PRN drug level at the specified time. It may be necessary to contact phlebotomy 60 minutes prior to the scheduled due time to assure a timely blood draw. PRN Medication Order 05/02/2018 05/03/2018 05/04/2018 bisacodyl (DULCOLAX) suppository 10 mg 10 mg, Rectal, DAILY PRN, Starting on Wed04/19/18 at 0522, Until Wed05/04/18 at 1520, Constipation, Routine hydrALAZINE (APRESOLINE) injection 20 mg 20 mg, Intravenous, EVERY 4 HOURS PRN, Starting on Wed04/22/18 at 0410, Until Wed05/04/18 at 1520, High Blood Pressure, For SBP > 160, For SBP > 160. Please try prn labetalol order first 702 (Given - Provider: Torri Angelo RN) HYDROmorphone (DILAUDID) injection 0.3 mg 0.3 mg, Intravenous, EVERY 4 HOURS PRN, Starting on Wed04/07/18 at 0657, Until Wed05/04/18 at 1520, Pain, For pain unrelieved by tylenol, Routine labetalol (NORMODYNE,TRANDATE) injection 20 mg 20 mg, Intravenous, EVERY 4 HOURS PRN, Starting on Wed04/24/18 at 2335, Until Wed05/04/18 at 1520, High Blood Pressure, For SBP > 160. Use before hydralazine, Do not give if HR < 80., Routine lidocaine (XYLOCAINE) 10 mg/mL (1 %) injection 3 mg 3 mg (0.3 mL), Subcutaneous, ONCE PRN, 1 dose, Starting on Wed04/06/18 at 1741, Until Wed05/04/18 at 1520, for discomfort with PIV insertion, Routine LORazepam (ATIVAN) injection 2 mg 2 mg, Intravenous, EVERY 4 HOURS PRN, Starting on Wed04/08/18 at 1422, Until Wed05/04/18 at 1520, Seizures, Alert team of seizure then retrieve medication, Routine ondansetron (ZOFRAN) injection 4 mg 4 mg, Intravenous, EVERY 8 HOURS PRN, Starting on Wed04/07/18 at 0936, Until Wed05/04/18 at 1520, Nausea oxyCODONE (ROXICODONE) immediate release tablet 10 mg(Linked Group 2) 10 mg, Oral, EVERY 4 HOURS PRN, Starting on Wed04/10/18 at 0736, Until Wed05/04/18 at 1520, Pain, moderate pain (4-6), May give additional 5 mg in 30 minutes once if pain not relieved., Routine oxyCODONE (ROXICODONE) immediate release tablet 15 mg(Linked Group 2) 15 mg, Oral, EVERY 4 HOURS PRN, Starting on 04/10/18 at 0736, Until Wed05/04/18 at 1520, Pain, severe pain or opiate tolerant patient (7-10), Do not start patient with 15 mg dose. Do not give 15 mg if patient is opiate niave., Routine oxyCODONE (ROXICODONE) immediate release tablet 5 mg(Linked Group 2) 5 mg, Oral, EVERY 4 HOURS PRN, Starting on Wed04/10/18 at 0736, Until Wed05/04/18 at 1520, Pain, mild pain (1-3), May give additional 5 mg in 30 minutes once if pain not relieved., Routine sodium chloride 0.9 % flush 5-20 mL 5-20 mL, Intravenous, EVERY 1 MIN PRN, Starting on Wed04/06/18 at 1741, Until Wed05/04/18 at 1520, flush, Flush pertains to all indwelling lines. Flush per protocol found in the job aid using the link provided on this medication record., Routine Linked Groups Order Group 1: acetaminophen (TYLENOL) tablet 1,000 mgJump to med 1,000 mg, Oral, EVERY 6 HOURS SCHEDULED, First dose (after last modification) on Wed04/22/18 at 0500, Until Discontinued, May give PO or Per Tube, Maximum dose of acetaminophen is 4000 mg from all sources in 24 hours., Routine Group 2: oxyCODONE (ROXICODONE) immediate release tablet 5 mgJump to med 5 mg, Oral, EVERY 4 HOURS PRN, Starting on Wed04/10/18 at 0736, Until Wed05/04/18 at 1520, Pain, mild pain (1-3), May give additional 5 mg in 30 minutes once if pain not relieved., Routine Or oxyCODONE (ROXICODONE) immediate release tablet 10 mgJump to med 10 mg, Oral, EVERY 4 HOURS PRN, Starting on 04/10/18 at 0736, Until 05/04/18 at 1520, Pain, moderate pain (4-6), May give additional 5 mg in 30 minutes once if pain not relieved., Routine Or oxyCODONE (ROXICODONE) immediate release tablet 15 mgJump to med 15 mg, Oral, EVERY 4 HOURS PRN, Starting on 04/10/18 at 0736, Until 05/04/18 at 1520, Pain, severe pain or opiate tolerant patient (7-10), Do not start patient with 15 mg dose. Do not give 15 mg if patient is opiate niave., Routine documented in this encounter Care Teams Street Commissioner Relationship Specialty Start Date End Date Carroll Garcia DO [address] [place] [address] PCP - General 09/23/11 10/20/22 documented as of this encounter
--- OUTSIDE RECORDS SUMMARY | 2024-04-22 10:59 | XMS_ITS | Encounter Summary ---
Author Organization [facility] [place] [address] Care Team Providers Care Wind Turbine Design Engineer Name Role Phone Alfredo Carroll MIX Primary Care Provider [phone] Reason for Visit * Auth/Cert Specialty Diagnoses [...] Expiration Date Visits Re quested Visits Authorized [id number] 1 1 Encounter Details Date Type Department Care Team (Late st Contact Info) Description 04/26/2018 11:36 AM EDT Anesthesia Event [place] [id number] Lucrecia Solis MD [facility] ANESTHESIOLOGY [place] [address] Portillo Varghese CRNA [facility] ANESTHESIOLOGY [place] [address] Anesthesia Record Procedure Summary Procedure Name Responsible Anesthesiologist Anesthesia Start Time Anesthesia Stop Time SPLIT THICK SKIN GRAFT,100 SQ CM OR LESS, ARMS (WRVU 9.9) (Left: Leg) Lucrecia Solis MD 04/26/18 1136 04/26/18 1239 Events Date Time Event Comment 04/26/2018 1129 1136 AN Verify 1136 Start 1136 An Start Data 1144 An Induction 1145 An Intubation 1150 Anesthesia Ready 1154 Break/Relief In October H Gretel allison CRNA 1203 Procedure Start 1224 Break/Relief Out 1224 Procedure Stop 1228 Extubation/LMA Out 1229 an stop data 1238 Recovery or ICU Handoff Randa ent care was transferred to the destination unit staff after review of the patient's medical history, current anesthetic/surgical status and plan, according to the Provider Handoff Checklist. 1239 Stop Meds Name Total Propofol 200 mg Propofol INF 167.66 mg fentaNYL 25 mcg Midazolam 2 mg IV Lidocaine 50 mg Dexamethasone 8 mg Ondansetron 4 mg ePHEDrine 30 mg Lactated Ringers 300 mL * Agents Name O2 Air N2O Sevoflurane (et) Isoflurane (et) * Blood No blood administrations on file. Lines, Drains, and Airways Type Details Placement Removal NPWT 04/25/18; 1200; arm; placed shortly after admission (eDH upgrade); LDA not present upon assessment; 01/07/21; 1239 04/25/18 1200 by Meghan Sands RN 01/07/21 1239 by Carlos Alberto Butler, SAVANNA (RETIRED) Peripheral IV Line - Single Lumen 04/26/18; 0955; cephalic vein (lateral side of arm), right; appn-ddb-aoaeco catheter system; 20 gauge, 1 in length; Christal Shearer RN VAS; distraction, appears comfortable, tolerated well; 0; 04/26/18; 1726 04/26/18 0955 by Christal Shearer 04/26/18 1726 by Veto Pearl RN Supraglottic Mask Ventilation: Easy (1); LMA Type: iGel; LMA Size: 4; Inserted by: Ritesh Solis MD; Removal Date: 04/26/18; Removal Time: 1228 04/26/18 1151 by Charles TammieHARRISON 04/26/18 1228 by Lucrecia Solis MD documented in this encounter Social History [...] OR Notes * Anesthesia Postprocedure Evaluation - Lucrecia Solis MD - 04/26/2018 2:51 PM EDT [facility] [place] Department of Anesthesiology Post-procedure Note Patient: Adama Ram Procedure Summary Date: 04/26/18 Room / Location: [facility] OR [address] [place] [address] MAIN OR Anesthesia Start: 1136 Anesthesia Stop: 1239 Procedures: SPLIT THICK SKIN GRAFT,100 SQ CM OR LESS, ARMS (WRVU 9.9) (Left Leg) EA.ADDITIONAL 100SQ.CM STSG (WRVU 1.72) (N/A Leg) MODIFIER WOUND VAC (N/A ) Diagnosis: (wound of arm) Surgeon: Silviano Sparks MD Responsible Provider: Lucrecia Solis MD Anesthesia Type: general ASA Status: 3 All Anesthesia Providers: Anesthesiologist: Lucrecia Solis MD BRUSH MAKER: Charles OctoberHARRISON Most Recent Vitals: 04/26/18 1338 BP: 138/89 Pulse: Resp: 12 Temp: 36.7 ??C (98.1 ??F) SpO2: 96% Pain 2 (04/26/18 1355) Patient Location: PACU/[facility] Level of Consciousness: Awake and Alert Pain Management: Satisfactory Analgesia PONV: None Cardiovascular Status: At Baseline Respiratory Status: Stable Respiratory Status Postoperative Fluid Status: Intravascular EUvolemia Possible Anesthetic Complications: NONE apparent at time of evaluation Final Primary Anesthesia Type: General (The anesthetic type performed was the same as planned.) Comments: Mr. Ram tolerated the procedure well and without complication. VSS. * Anesthesia Preprocedure Evaluation - Lucrecia Solis MD - 04/26/2018 11:15 AM EDT Images from the original note were not included. Pre-Anesthesia Evaluation for: Adama Ram a 57 y.o. male. Procedure(s): SPLIT THICK SKIN GRAFT,100 SQ CM OR LESS, ARMS (WRVU 9.9) Patient Active Problem List Diagnosis ??? Hemorrhagic shock ??? Primary papillary carcinoma of left kidney ??? Renal mass ??? Gastrointestinal hemorrhage ??? Bradycardia ??? Left renal mass ??? TRISTIAN (acute kidney injury) ??? Weight loss ??? CKD (chronic kidney disease) stage 4, GFR 15-29 ml/min ??? 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 entrepreneur current use of immunosuppressive drug ??? 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 BP (high blood pressure) ??? DVT (deep venous thrombosis) ??? Gout ??? Hypertension ??? Kidney problem ??? Pneumonia ??? TBI (traumatic brain injury) 1980 Past Surgical History: Procedure Laterality Date ??? CREATED BY INTERFACE Entered not Verified Procedure Date: 09/19/2010 ??? KIDNEY TRANSPLANT KIDNEY TRANSPLANT / RECIPIENT/LT Procedure Date: 11/26/2002 ??? US RENAL TRANSPLANT BIOPSY 12/31/2010 Social History Tobacco Use ??? Smoking status: Former Smoker Packs/day: 0.25 Years: 1.50 Pack years: 0.37 Types: Cigarettes Last attempt to quit: 12/03/2000 Years since quittin.4 ??? Smokeless tobacco: Former User Quit date: 04/14/2001 Substance Use Topics ??? Alcohol use: No Social History Substance and Sexual Activity Drug Use No Comment: havent in years/1995 Allergies Allergen Reactions ??? Benazepril Hcl ??? Codeine Other (See Comments) Patient does not know reaction ??? Hydrochlorothiazide ??? Pollen Extracts Sneezing/runny nose Medications: MAR and/or home medications have been reviewed. Physical Exam: Most Recent Vitals: 04/26/18 0737 BP: 152/90 Pulse: Resp: 18 Temp: 36.7 ??C (98.1 ??F) SpO2: 98% Body mass index is 27.21 kg/m??. Height: 178 cm (5' 10.08) Weight: 86.2 kg (190 lb 0.6 oz) Airway Assessment: Mallampati: II TM distance: >3 FB Neck ROM: full Previous anesthetics with Igel#4 Cardiovascular Assessment: Pulmonary Assessment: Dental Assessment: Comment: Partial plate has been removed. Misc Assessment: IV access: Peripheral line Anesthesia Plan: ASA 3 general, with a(n) intravenous induction Mr. Ram is a 57 y.o. male with hx of ESRD (IgA nephropathy) s/p kidney transplant s/p emergent repair of ruptured LUE AVF and resulting PEA arrest (EF recovered to 65%) s/p multiple VAC changes/debridements (with iGel/GA) now scheduled for LE skin grafting. Of note, Hg 7.9 this AM. ?? Anesthetic History: easy MV, previous grade 1 w/ Mac 4, report of severe bradycardia unresponsive to glyco ?? Allergies reviewed Labs reviewed ?? EKG: sinus bradycardia Echocardiogram: 04/28 EF 65%, no WMAs, no significant valve disease ?? NPO Status: appropriate ?? Anesthetic Plan: GA w//LMA Standard ASA monitoring PIV access Risks were discussed at length, and all questions and concerns were addressed. Consent was obtained, and the appropriate paperwork was placed in the patient's chart. Region - Other Informed Consent: Anesthetic plan and risks discussed with patient. Use of blood products discussed with patient who consented to blood products. Plan discussed with BRUSH MAKER. PAT Staff Note documented in this encounter Plan of Treatment Not on file documented as of this encounter Visit Diagnoses Not on filedocumented in this encounter Administered Medications Inactive Administered Medications - up to 3 most recent administrations Medication Order MAR Action Action Date Dose Rate Site dexamethasone (DECADRON) injection Intravenous, PRN, Starting on Wed04/26/18 at 1150, Until Wed04/26/18 at 1244, Anesthesia Intra-op, Routine Given 04/26/2018 11:50 AM EDT 8 mg ePHEDrine 5 mg/mL multi-dose injection Intravenous, PRN, Starting on Wed04/26/18 at 1156, Until Wed04/26/18 at 1244, Anesthesia Intra-op, Routine Given 04/26/2018 12:11 PM EDT 10 mg Given 04/26/2018 12:03 PM EDT 10 mg Given 04/26/2018 11:56 AM EDT 10 mg fentaNYL 50 mcg/mL multi-dose injection Intravenous, PRN, Starting on Wed04/26/18 at 1145, Until Wed04/26/18 at 1244, Anesthesia Intra-op, Routine Given 04/26/2018 12:11 PM EDT 12.5 mcg Given 04/26/2018 11:45 AM EDT 12.5 mcg lactated Ringers infusion CONTINUOUS PRN, Starting on Wed04/26/18 at 1136, Until Wed04/26/18 at 1244, Anesthesia Intra-op New Bag 04/26/2018 11:36 AM EDT lidocaine (PF) (XYLOCAINE) 100 mg/5 mL (2 %) injection Intravenous, PRN, Starting on Wed04/26/18 at 1144, Until Wed04/26/18 at 1244, Anesthesia Intra-op, Routine Given 04/26/2018 11:44 AM EDT 50 mg midazolam (PF) (VERSED) multi-dose injection Intravenous, PRN, Starting on Wed04/26/18 at 1132, Until Wed04/26/18 at 1244, Anesthesia Intra-op, Routine Given 04/26/2018 11:32 AM EDT 2 mg ondansetron (ZOFRAN) injection Intravenous, PRN, Starting on Wed04/26/18 at 1213, Until Wed04/26/18 at 1244, Anesthesia Intra-op, Routine Given 04/26/2018 12:13 PM EDT 4 mg propofol (DIPRIVAN) 10 mg/mL bolus injection (Anesthesia) Intravenous, PRN, Starting on Wed04/26/18 at 1144, Until Wed04/26/18 at 1244, Anesthesia Intra-op Given 04/26/2018 11:44 AM EDT 200 mg propofol (DIPRIVAN) infusion Intravenous, CONTINUOUS PRN, Starting on Wed04/26/18 at 1144, Until Wed04/26/18 at 1244, Anesthesia Intra-op, Routine Rate/Dose Change 04/26/2018 12:18 PM EDT 25 mcg/kg/min 12.9 mL/hr Rate/Dose Change 04/26/2018 12:11 PM EDT 50 mcg/kg/min 25. 9 mL/hr Rate/Dose Change 04/26/2018 12:03 PM EDT 30 mcg/kg/min 15. 5 mL/hr documented in this encounter Care Teams Wind Turbine Design Engineer Relationship Specialty Start Date End Date Carroll Fuentes DO [address] [place] [address] PCP - General 09/23/11 10/20/22 documented as of this encounter
--- OUTSIDE RECORDS SUMMARY | 2024-04-22 11:01 | XMS_ITS | Encounter Summary ---
Author Organization [facility] Address [facility] [place] [address] Care Team Providers Care Diversity Manager Name Role Phone AlfredoCarroll allison Primary Care Provider [phone] Reason for Visit * Reason Comments Trauma [...] Expiration Date Visits Re quested Visits Authorized [id number] 1 1 Encounter Details Date Type Department Care Team (Late st Contact Info) Description 04/26/2018 10:35 AM EDT - 04/26/2018 12:03 PM EDT [place] [address] Hay Sparks MD [facility] [place] [address] SPLIT THICK SKIN GRAFT,100 SQ CM OR LESS, ARMS (WRVU 9.9) Social History Tobacco Use Types Packs/Day Years [...] Sign Reading Time Taken Comments Blood Pressure 152/90 04/26/2018 7:37 AM EDT Pulse 52 04/26/2018 6:00 AM EDT Temperature 36.7 ??C (98.1 ??F) 04/26/2018 7:37 AM ED T Respiratory Rate 18 04/26/2018 7:37 AM EDT Oxygen Saturation 98% 04/26/2018 11:00 AM EDT Inhaled Oxygen Concentration - - Weight 86.2 kg (190 lb 0.6 oz) 04/17/2018 5:21 A M EDT Height 178 cm (5' 10.08) 04/06/2018 [...] GFR 15-29 ml/min ??? 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 terminal makeup operator current use of immunosuppressive drug ??? [...] epilepsy, and prior TBI who presents to [facility] s/p LUE bleeding with PEA arrest. Description [...] Pt intubated in field. Pt taken to [facility], where second tourniquet applied and pt received 6U PRBC. Transferred to [facility] for further care. Of note, per Dr. [...] Studies: none Discharge Conditions/Prognosis: Good [facility] [address] [place] [id number] Discharge Medications: Your Medications New Medications Dose [...] draw weekly CBC/CMP with results sent to [facility] Infectious disease. See wound care instructions below. [...] For any problems or questions please call [phone] YEIMY Fallon, staffing administrator Nurse Clinician For issues on weeknights after 5pm and weekends please call [phone] and ask for the Vascular Fellow manager solution. General Instructions Plastic Surgery Wound Care Instructions [...] about scheduling, please contact our administrative officesat [phone] For clinical questions, please call our nurses at [phone] Both offices are open Wednesday thru Wednesday 8a - 5p. With emergencies after hours, call the hospital bearing press machine operator at [phone] and ask for the Plastic Surgery Resident manager solution. Future Appointments and Orders Future Appointments and Orders Future Appointments Provider Department Dept Phone 05/17/2018 10:20 AM Laina Disla APRN Plastic Surgery at [place] Arrive at: Social Service Worker Area 4M [phone] 05/17/2018 11:30 AM Kurt Medina MD Infectious Disease at [place] Arrive at: Social Service Worker Area 5C [phone] 05/17/2018 12:30 PM Nilda Minaya RN Vascular Surgery at [place] Arrive at: Social Service Worker Area 3V [phone] 05/27/2018 10:15 AM Lida Peter MD Vascular Surgery at [place] Arrive at: Social Service Worker Area 3V [phone] 08/18/2018 10:30 AM Chanel Smith MD Dermatology at [facility] [phone] Future Orders Complete By Expires OPAT: Order / Recommendation for Post Discharge IV Antibiotic Management [XXQ901 CPT(R)] As directed Process Instructions: If no progress note charted, please enter Clinical details in comments. Scheduling Instructions: Comments: Please Fax all results to: OPAT Program Infectious Disease Section [facility], [place] [address] FAX: Line care instructions per [facility] OPAT Program protocol. After hours, please contact the Infectious Disease Physician manager solution at . If this order was signed greater than 72 hours prior to [facility] discharge, please call to confirm the accuracy [...] about scheduling, please contact our administrative officesat [phone] For clinical questions, please call our nurses at [phone] Both offices are open Wednesday thru Wednesday 8a - 5p. With emergencies after hours, call the hospital bearing press machine operator at [phone] and ask for the Plastic Surgery Resident manager solution. * Patient Instructions* Nilda Minaya RN - 04/07/2018 8:30 AM EDT Patient [...] For any problems or questions please call [phone] YEIMY Fallon, staffing administrator Nurse Clinician For issues on weeknights after 5pm and weekends please call [phone] and ask for the Vascular Fellow manager solution. documented in this encounter Medications at Time [...] AM EDT Pt accepted bed offer at [facility] for transfer today. Pt qualifies for ambulance transfer due to being on bed alarm while here, being impulsive and history of TBI. Pt will be transferred at Noon via [facility]. I called pt brother Lucas to inform. He was with JANICE Guzman from [facility] [facility]. Our SW Bia spoke with Lucas as well about continuing the LT Medicaid application process. Nurse to Nurse report number given to pt's staff nurse Danny. Discharge envelope started; still needed discharge summary, medication sheets and prescription added. Please call CM if needed for further pt discharge needs. Padmini Ruiz RN [phone] * Reynaldo Jade - 05/04/2018 8:58 AM EDT Office of Care Management/Resourcing Advisor Patient Name: Christy Ambrose : 1960 Patient has been offered a SNF bed at [facility] for today, 05/04/18 [facility] arranged for a 12:00 pm transport. Ambulance will need: Medicare ambulance form completed and signed (MD or Dampproofer RN/EMBLEM FUSER TENDER) Copy of patient demographics [place] [facility] DNR/DNI order, if active No MD to MD report necessary Please call Nursing Report to [phone], ask for chocolate refining roller. Info to accompany patient: Narcotic Prescriptions Copies of Medication Administration Records and IV sheets for past 10 days. Plan: Resourcing Advisor will be available to the patient and Dampproofer-RN and/or Social Workerfor further assistance. Patient will be discharged to: [address] [address] Reynaldo Jade, Resourcing Advisor * Chasidy Monahan PA - 05/04/2018 7:47 [...] 04/30 1504 Most Recent Creatinine 2.66 05/01 040 WBC 5.0 05/01 400 BUN 36 05/01 [...] AM Laina Disla APRN [facility] 4M [facility] 05/17/2018 11:30 AM Kurt Medina MD Leb Infec 5C [facility] 05/17/2018 12:30 PM Nilda Minaya RN Leb V [facility]urg [facility] 08/18/2018 10:30 AM Chanel Smith MD [facility] PANCHITO Rios Pager: [phone] * Nayeli Wilde, SAVANNA - 05/03/2018 8:29 PM EDT Images from the original note were not included. PRN dressing change Dressing prior to change Dressing after change * Natalya Wan MSW - 05/03/2018 5:01 PM EDT EMBLEM FUSER TENDER and RNTORIBIO Chaidez met with Christy, his mother Ilda (HDPOA), and his brother Lucas (HDPOA and FPOA). All three parties accepted a bed offer at [facility] for rehab and hope thatif a bed becomes available at [facility] Christy can be transferred. Family to continue tocomplete [place] Choices for Care and work on intermediate supportive living with [facility] when mother goes to assisted living. * Nicole Hamilton LD - 05/03/2018 2:04 PM EDT Nutrition Progress Note Christy Ginna Ambrose is a 57 y.o. male Reason for intervention: Follow up Nutrition Recommendations: Could liberalize diet to [facility] Continue to monitor potassium trends Monitor weight [...] ml/min N18.4 ??? 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 terminal makeup operator current use of immunosuppressive drug Z79.899 ??? H/O kidney transplant Z94.0 ??? TRITSIAN (acute kidney injury) N17.9 ??? Weight loss [...] encounter: 84.3 kg (185 lb 13.6 oz). Zap Body Weight (IBW): Zap body weight: 73.2 kg (161 lb 5.4 [...] intakes. Potassiumnormal, could consider liberalizing diet to [facility]/Cardiac. Patient denies any questions/concerns rega rding current [...] Creatinine 2.66 05/01 0400 WBC 5.0 05/01 0400 BUN 36 05/01 0400 Antimicrobials Medication Dose/Rate, [...] by primary team Javier Nolan MD Pager: [phone] * Tristin Marrero MD - 05/03/2018 7:40 [...] 3 wbc, hgb, hct plt Recent Labs 05/03/18 0306 05/02/18 0320 05/01/18 0400 WBC 5.0 4.8 5.0 HGB 8.2* 8.2* 8.2* HCT 25.1* 24.6* 25.6* PLATELET 160 168 192 Last 3 Lytes Recent Labs 05/03/18 0306 05/02/18 0320 05/01/18 0400 NA 135 135 134* K 4.2 4.3 3.9 CL 101 103 101 CO2 20* 19* 19* BUN 35* 38* 36* CREATININE 2.58* 2.73* 2.66* Last Ca, Mg, Phos Recent Labs 05/03/18 0306 CALCIUM 7.9* Last 3 Coags No results for input(s): PT, INR, PTT in the last 168 hours. Microbiology - Rare Corynebacterium species, sensitivities pending. New Studies None Assessment & Plan Christy J Arnol is a 57 y.o. male s/p brachial artery repair following ruptured AVF with subsequent cardiac arrest. Patient continues to make steady progress. L forearm wound now covered with STSG by Plastic Surgery with 100% take. Patient on antibiotic regimen per ID and will plan for 4 weeks OPAT. Appreicate plastic surgery involvement & recommendations. Disposition planning ongoing. Angelina Marrero Vascular Surgery, PGY3 Pager #[phone] * Tristin Marrero MD - 05/02/2018 12:35 [...] Last Ca, Mg, Phos Recent Labs 05/02/18 032 CALCIUM 7.7* Last 3 Coags No results [...] recommendations. Angelina Marrero Vascular Surgery, PGY3 Pager #[phone] * Chasidy Monahan PA - 05/02/2018 9:16 AM EDT Images from the original note were not included. PLASTIC SURGERY PROGRESS NOTE ID: Christy Ginna Arnol??is a 57 y.o.??old male??w/hx of??renal transplant??who intially??presented [...] Creatinine 2.66 05/01 0400 WBC 5.0 05/01 0400 BUN 36 05/01 0400 Antimicrobials Medication Dose/Rate, [...] team PANCHITO Rios Plastic Surgery Team Pager: [phone] * Natalya Jacobsen MD - 05/01/2018 9:15 [...] Intake/Output Summary (Last 24 hours) at 05/01/2018 09 Last data filed at 05/01/2018 0841 Gross [...] 2.51* Last Ca, Mg, Phos Recent Labs 10/21/18 0400 CALCIUM 8.0* Last 3 Coags No [...] Creatinine 2.66 05/01 0400 WBC 5.0 05/01 400 BUN 36 05/01 [...] place and dry for 2wks post-op (until 10/30) - no need to hold SQH - Continue abx per ID/primary:??vanc/flagyl/cipro - From plastic surgery standpoint ok for d/c and can return to clinic Wednesday to have VAC removed. Appt has been scheduled. Should pt remain in house, plastics will take down VAC Wednesday. - Appreciate rest of care by primary team Aditi Mccollum MD Plastic Surgery Resident P# [phone] * Natalya Jacobsen MD - 04/30/2018 9:23 [...] kg/m??. Intake/Output Summary (Last 24 hours) at 04/30/2018 09 Last data filed at 04/30/2018 0903 Gross [...] WBC 5.2 04/30 255 BUN 39 04/30 255 Antimicrobials Medication Dose/Rate, Route, Frequency Last Action [...] Dose/Rate, NOT APPLICAB, Per Pharmacy Ordered Assessment: Christy Ambrose is a 57 y.o. [...] Aditi Mccollum MD Plastic Surgery Resident P# [phone] * Natalya Jacobsen MD - 04/29/2018 2:00 [...] General Surgery PGY-1 [id number] * Natalya Wan EMBLEM FUSER TENDER - 04/29/2018 11:21 AM EDT EMBLEM FUSER TENDER spoke with patients mother and Co [place] [facility] EMBLEM FUSER TENDER who are following up today by completingChoices for Care application. Mother told EMBLEM FUSER TENDER patient was fully independent until this event. [...] (Left arm snuffbox): 04/19/18 - Corynebacterium Assessment: Christymaty Ambrose is a 57 y.o. male w [...] 10:30 AM NURSE, PLASTIC SURGERY [facility] [address] [place] [address] CLIN 05/02/2018 12:30 PM Natalya Ojeda MD [facility] 08/18/2018 10:30 AM Chanel Smith MD [employer] Laura Bauman MD Plastic surgery team pager: [phone] 04/29/2018 6:48 AM * Tonie Kumar - 04/28/2018 2:37 PM EDT Narrative: Visited to introduce and assess acceptance of Bottoming Machine Operator services. Pt was awake, alert, oriented and [...] Provided emotional, spiritua support and encouraging presence. Bottoming Machine Operator services accepted.Conversation to build trusting relationship.Provided pastoral [...] 3 wbc, hgb, hct plt Recent Labs 04/28/18 0440 04/27/18 0443 04/26/18 1509 WBC 6.2 5.9 4.8 HGB 7.6* [...] EDT Plastic Surgery Service Progress Note ID: Christymaty Ambrose is a 57 y.o. old male [...] 10:30 AM NURSE, PLASTIC SURGERY [facility] [address] [place] [address] CLIN 05/02/2018 12:30 PM Natalya Ojeda MD [facility] 08/18/2018 10:30 AM Chanel Smith MD [facility] PANCHITO Moser Plastic surgery team pager: [phone] 04/28/2018 8:12 AM Attending: Plan discussed and [...] off. Please call with questions Danielle Peoples, Infectious Disease Fellow Pager [phone] Associated attestation - Kurt Medina MD - [...] team PANCHITO Rios Plastic surgery team pager: [phone] 04/27/2018 8:46 AM Attending: Plan discussed and agree as documented. Hay Sparks MD Plastic Surgery * Thelma Solitario MD - 04/27/2018 1:04 AM EDT Surgery Post Op Check Christy Ambrose is a 57 y.o. male [...] intact, nonfocal, moving all extremities. AP Christy Ambrose is a 57 y.o. male status post STSG and wound vac, currently in stable condition and recovering well - pain well controlled - hemodynamically stable - UOP adequate Thelma Solitario Pager: [phone] 04/27/18 * Domi Norman RN - 04/26/2018 [...] Note Recommendation/Plan: Diet at MD discretion, consider [facility] diet with K restriction May liberalize to [facility] if K is WNL Appreciate updated weights Monitor and encourage PO intake Nutrition will continue to follow. Text paged who referred me to transplant team. Christy [...] 2.74* Last Ca, Mg, Phos Recent Labs 10/16/18 0439 CALCIUM 8.2* Last 3 Coags Recent Labs [...] / appropriate for Occupational Therapy Services. Pager [phone] NICKY Irizarry/John Occupational Therapy Rehabilitation Department * [...] (Left arm snuffbox): 04/19/18 - Corynebacterium Assessment: Christymaty Ambrose is a 57 y.o. male w [...] team PANCHITO Rios Plastic surgery team pager: [phone] 04/26/2018 8:01 AM Attending: Pt seen and examined. We discussed the plan for skin grafting in detail. We discussed potential risks and complications which include but are not limited to: Pain, bleeding, infection, scarring, asymmetry, hematoma, seroma, poor cosmetic outcome, failure ofprocedure, possible need for revision, damage to adjacent structures. Hay Freed, MD Plastic Surgery * Danielle Peoples DO [...] Danielle Peoples DO Infectious Disease Fellow Pager [phone] Associated attestation - Kurt Medina MD - 04/26/2018 8:27 AM EDT [...] skin grafting (04/26) - NPO at [facility] - Obtain consent or OR tomorrow - no need to hold [facility] PANCHITO Rios Plastic surgery team pager: [phone] 04/25/2018 1:10 PM Attending: Plan discussed and [...] 2.49* Last Ca, Mg, Phos Recent Labs 04/25/18517 CALCIUM 8.1* Last 3 Coags Recent Labs 04/20/18 0548 04/19/18 0625 PT 11.6 11.5 INR 1.0 1.0 PTT 27 27 Microbiology - Rare Corynebacterium species, sensitivities pending. New Studies None Assessment & Plan Christy Ginna Arnol is a 57 y.o. male s/p brachial [...] 317 289 Last 3 Lytes Recent Labs 04/24/187 04/23/186 04/22/18 0534 NA 138 137 138 K 5.2* 4.9 5.3* CL 108* 103 106 CO2 20* 20* 19* BUN 38* 36* 38* CREATININE 2.74* 2.49* 2.30* Last Ca, Mg, Phos Recent Labs 04/24/18416 CALCIUM 8.0* Last 3 Coags Recent Labs 04/20/18 0548 04/19/18 0625 04/18/18 0526 PT 11.6 11.5 11.2 INR 1.0 1.0 1.0 PTT 27 27 27 Microbiology ?? Tissue culture [[id number]] (Abnormal) Collected: 04/19/18924 ? Lab Status: Preliminary [...] - skin grafting Wednesday - NPO at [place] Wednesday night - no need to hold SQ Camden Sol MD Plastic Surgery, PGY-5 04/24/2018 [...] 3 wbc, hgb, hct plt Recent Labs 04/23/18 0456 04/22/18 0534 04/21/18 0550 WBC 5.2 5.5 5.8 HGB 8.0* 8.0* 7.7* HCT 24.3* 24.8* 24.2* PLATELET 317 289 316 Last 3 Lytes Recent Labs 04/23/18 0456 04/22/18 0534 04/21/18 0550 NA 137 138 [...] 27 27 27 Microbiology ?? Tissue culture [[id number]] (Abnormal) Collected: 04/19/18924 ? Lab Status: Preliminary [...] Tristin Marrero MD' Vascular surgery * Danielle Peoples, - 04/22/2018 4:25 PM EDT Infectious Disease [...] O: Telephone call received from Rachna Muro ([place] [facility]) who reports that patient's Mother is already assigned to worker Lalitha. Rachna suggested I call Mother and remind her that she has made contact with the agency. Rachna cannot release any information to [facility] without a signed release. Wage And Salary Specialist attempted to call Mother today, no answer, [...] 3 wbc, hgb, hct plt Recent Labs 04/22/1834 04/21/1850 04/20/18 05 WBC 5.5 5.8 7.3 HGB 8.0* 7.7* 7.8* HCT 24.8* 24.2* 23.7* PLATELET 289 316 302 Last 3 Lytes Recent Labs 04/22/1834 04/21/18 0550 04/20/18 0548 NA 138 138 [...] PTT 27 27 27 Microbiology Tissue culture [[id number]] (Abnormal) Collected: 04/19/18924 ? Lab Status: Preliminary result Specimen: Skin Updated: 04/19/18 1014 ? Gram Stain -- (A) ? Many Neutrophils seen Rare Gram Negative Rods seen New Studies None Assessment & Plan Christy Ginna Amrbose is a 57 y.o. male s/p brachial [...] had just returned from ambulating unit3x w/ staffing associate. RN reports pt is supervision while ambulating to/from bathroom and requires min A for hygiene thoroughness. Pt deferred OT until tomorrow; pt education provided re: importance of frequent functional mobility and participation w/ ADL tasks. Will follow up as available / appropriate for Occupational Therapy Services. Pager [phone] Dania Ramirez. NICKY Oliveira/John Occupational Therapy Rehabilitation Department * Rasta Hernández [...] PTT 27 27 27 Microbiology Tissue culture [[id number]] (Abnormal) Collected: 04/19/18924 ? Lab Status: Preliminary [...] Transplant: continue current immunosuppression regimen. Appreciate input. [facility] Vascular Surgery * Klesey Tyler, RD - 04/20/2018 12:27 PM EDT [...] ml/min N18.4 ??? 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 terminal makeup operator current use of immunosuppressive drug Z79.899 [...] encounter: 86.2 kg (190 lb 0.6 oz). Zap Body Weight (IBW): Zap body weight: 73.2 kg (161 lb 5.4 [...] JERICHO Lombardi Beeper #: [phone] * Karis Mejia, EMBLEM FUSER TENDER - 04/20/2018 11:29 AM EDT Discharge Planning: O: Telephone call to patient's Mother Ilda who reports that she was unable to connect with her local [facility]. Unfortunately I believe that Ilda may be overwhelmed by patient's admission and events leading up to hospitalization. Ilda reports that there are repairs that need to be completed in the family home and that a staff member at [facility] (she cannot identify) has told her that patient can not return home. I offered support to Ilda and suggested that I would contact the [place] [facility] and ask them to outreach to her. She was appreciative. Telephone call to Rachna Muro ([facility] [place] [facility] [phone]), voice mail message relaying above information. P: Await call back from Rachna, continue to liaison with Mother and offer support around discharge planning. 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 STUDIES: Labs: CBC: Recent Labs 04/20/18 0548 04/19/1862404/18/18525 WBC 7.3 5.5 6.4 HGB 7.8* 7.7* 8.0* PLATELET 302 274 305 Chemistry: Recent Labs 04/20/18 0548 04/19/18 0625 04/18/18 0526 NA 138 137 135 K 4.7 4.7 4.3 CL 104 104 104 CO2 21* 21* 20* BUN 33* 35* 36* CREATININE 2.38* 2.12* 2.30* GLUCOSE 103 100 103 Recent Labs 04/20/18 0548 04/19/18 0625 04/18/18 0526 04/06/18 1740 09/23/17 1101 CALCIUM 8.0* 8.0* 8.3* < > 6.7* < > 8.4* MAGNESIUM -- -- -- -- 0.60* -- 0.76 PHOS -- -- -- -- 3.3 -- 3.9 < > = values in this interval not displayed. 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 -Will continue with current immunosuppression -prograf-1.5 mg/1mg with recent trough in therapeuticrange and Cellcept -250 BID. -Will continue with sodium bicarb for correction of non gap metabolic acidosis- likely due to chronic kidney disease. -No acute indication for SEARCH SPECIALIST ,,Strict intake and out put monitoring,Daily weights,Renal [...] hgb, hct plt Recent Labs 04/20/18 0548 04/19/1825 04/18/18 0526 WBC 7.3 5.5 6.4 HGB 7.8* 7.7* 8.0* HCT 23.7* 23.3* 24.6* PLATELET 302 274 305 Last 3 Lytes Recent Labs 04/20/18 0548 04/19/18 0625 04/18/18 0526 NA 138 137 135 K 4.7 4.7 4.3 CL 104 104 104 CO2 21* 21* 20* BUN 33* 35* 36* CREATININE 2.38* 2.12* 2.30* Last Ca, Mg, Phos Recent Labs 04/20/18 05 CALCIUM 8.0* Last 3 Coags Recent Labs 04/20/18 0548 04/19/1825 04/18/18 0526 PT 11.6 11.5 11.2 INR 1.0 1.0 1.0 PTT 27 27 27 Microbiology Tissue culture [[id number]] (Abnormal) Collected: 04/19/18924 ? Lab Status: Preliminary [...] management of HTN and immunosuppressant regimen. Angelina Marrero Vascular Surgery, PGY3 Pager #[phone] * Karuna Nagel, RN - 04/19/2018 10:28 AM EDT 1028- Orders received LUE elevated x 3 pillows now. * Karuna Nagel RN - 04/19/2018 10:24 AM EDT 0955 [...] kg/(m^2). Intake/Output Summary (Last 24 hours) at 04/19/18653 Last data filed at 04/19/18624 Gross per 24 hour Intake 1796 ml [...] 3 wbc, hgb, hct plt Recent Labs 04/19/1862404/18/1852504/17/18442 WBC 5.5 6.4 5.6 HGB 7.7* 8.0* 7.5* HCT 23.3* 24.6* 22.9* PLATELET 274 305 282 Last 3 Lytes Recent Labs 04/18/1852504/17/183 04/16/18 0417 NA 135 135 135 K 4.3 4.1 4.0 CL 104 104 103 CO2 20* 19* 20* BUN 36* 32* 31* CREATININE 2.30* 2.27* 2.27* Last Ca, Mg, Phos Recent Labs 04/18/18525 CALCIUM 8.3* Last 3 Coags Recent Labs 04/19/1862404/18/1852504/17/183 PT 11.5 11.2 11.7 INR 1.0 1.0 [...] regimen. Plan for tacrolimus trough today. Angelina Devries Elida Vascular Surgery, PGY3 Pager #[phone] * Selma Fontanez PTA - 04/18/2018 2:14 PM EDT Physical Therapy Note Patient having bedside vac change with pain meds. Will follow up with patient tomorrow. Selma Fontanez PTA Pager# [phone] * Tristin Marrero MD - 04/18/2018 12:22 [...] 3 wbc, hgb, hct plt Recent Labs 04/18/1852504/17/1844204/16/18416 WBC 6.4 5.6 5.2 HGB 8.0* 7.5* 7.9* HCT 24.6* 22.9* 24.9* PLATELET 305 282 288 Last 3 Lytes Recent Labs 04/18/1852504/17/1844204/16/18416 NA 135 135 135 K 4.3 4.1 4.0 CL 104 104 103 CO2 20* 19* 20* BUN 36* 32* 31* CREATININE 2.30* 2.27* 2.27* Last Ca, Mg, Phos Recent Labs 04/18/18525 CALCIUM 8.3* Last 3 Coags Recent Labs 04/18/1852504/17/1844204/16/18416 PT 11.2 11.7 11.5 INR 1.0 1.0 [...] 1mg evening and Cellcept -250 BID Angelina jensne 3040 04/18/2018 12:22 PM * Karine Carroll [...] PTT 27 27 27 -- Recent Labs 04/17/1844204/16/1841604/15/18446 NA 135 135 138 K 4.1 4.0 [...] kidney disease. - No acute indication for SEARCH SPECIALIST, Strict intake and out put monitoring, Daily [...] 97 % SpO2: [95 %-99 %] 04/15 701 - 04/16 700 In: 2131.5 [P.O.:840; I.V.:1237.5] Out: 350 [Urine:300] [...] kidney disease. - No acute indication for SEARCH SPECIALIST, Strict intake and out put monitoring, Daily weights, Renal dosing for medications - Hypertension: was on hydralazine 50 mg BID,diltiazem 120 mg XT daily ,metorpolol 50 mg TID, losartan 25 mg daily at home. Will add losartan today. - discontinue IVF - reg diet Tim Ogden MD * Karine Carroll RN - 04/16/2018 5:28 AM EDT - [...] ml/min N18.4 ??? 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 residential current use of immunosuppressive drug Z79.899 ??? [...] by Miguel Angel Moreno MD at [facility] MA[facility] OR ??? PRO DECOMPRESS FOREARM, BRACH ART EXPLOR Left 04/06/2018 FASCIOTOMY, FOREARM, WITH BRACHIAL ARTERY EXPLORATION (WRVU 8.41) performed by Lida Peter MDat [facility] MA[facility] OR ??? PRO DIRECT REPAIR RUPTURED ANEURYSM, AXILLO-BRACHIAL ARM INCIS Left 04/06/2018 @REPAIR, RUPTURED AXILLARY OR BRACHIAL ARTERY ANEURYSM BY ARM INCISION (WRVU *) performed by Lida Peter MD at [facility] MA[facility] OR ??? PRO EXC PAROTD, TOTAL, UNILAT RAD NECK Left 02/05/2016 @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, TOTAL, WITH UNILATERAL RADICAL NECK DISSECTION performed by Miguel Angel Moreno MD at [facility] OR ??? PRO EXC SKIN MALIG 3.1-4CM FACE, FACIAL Left 02/05/2016 EXC MALIGNANT LESION, 3.1 TO 4.0CM, FACE performed by Miguel Angel Moreno MD at [facility] MA[facility] OR ? ? PRO EXC SKIN MALIG >4CM TRUNK, ARM, LEG 04/19/2012 EXC MALIGNANT LESION, MICHAEL > 4.0CM, TRUNK performed by SABRINA MEDRANO at [facility] OR ??? PRO LAP, RADICAL NEPHRECTOMY Left 05/31/2017 @LAPAROSCOPY, RADICAL NEPHRECTOMY (WRVU 25.06) performed by Jax Mills MD at [facility] OR ??? PRO REBL VES GRAFT, UP EXTREM Left 04/06/2018 REPAIR BLOOD VESSEL WITH GRAFT OTHER THAN VEIN, UPPER EXTREMITY (WRVU 15.83) performed by Lida Peter MD at [facility] OR ??? PRO RELIEVE PRESSURE ON NERVE(S) Left 04/06/2018 (MSURG) CARPAL TUNNEL (WRVU 4.82) performed by Hay Sparks MD at [facility] OR ??? PRO REPAIR INTERMEDIATE S/A/T/E 2.6-7.5 CM 04/19/2012 REPAIR INTERMEDIATE WOUND, (NO HANDS OR FEET) 2.6 TO 7.5CM, UPPER EXTREMITY performed by SABRINA MEDRANO at [facility] OR ? ? PRO REPAIR INTERMEDIATE S/A/T/E > 30.0 CM Left 04/14/2018 REPAIR INTERMEDIATE WOUND, (NO HANDS OR FEET) >30.0CM, UPPER EXTREMITY (WRVU 5) performed by Yimi Easton MD at [facility] OR ??? PRO REVISE MEDIAN N/CARPAL TUNNEL SURG Left 04/06/2018 MEDIAN NERVE DECOMPRESSION (CARPAL TUNNEL RELEASE) (WRVU 4.97) performed by Lida Peter MD [facility] MAIN OR ? ? PRO SPLIT GRFT, HEAD, FAC, HAND, FEET <100SQCM N/A 02/20/2016 SPLIT THICKNESS SKIN SPLIT GRAFT,100SQ CM OR LESS, NECK performed by Miguel Angel Moreno MD at [facility] MA[facility] OR ??? PRO UPPER GI ENDOSCOPY, BIOPSY N/A 05/13/2017 EGD WITH BIOPSY (WRVU 2.49) performed by Aditya Barrera MD at [facility] ENDOSCOPY ??? PRO VASCULAR SURGERY PROCEDURE UNLIST Left 11/20/2015 LIGATION\REPAIR AV FISTULA performed by Camilo Ireland MD at [facility] MA[facility] OR ??? PRO VASCULAR SURGERY PROCEDURE UNLIST Left 11/20/2015 EXCISION VEIN FROM HAND performed by Camilo Ireland MD at [facility] MA[facility] OR ??? US RENAL TRANSPLANT BIOPSY 12/31/2010 Reason for Nutrition Intervention: Initial assessment Diet Order: Regular Appetite: Good Food allergies: None documented Chewing/Swallowing difficulty: none, cleared for regular diet and thin liquids per MINER PICK Estimated body mass index is 28.91 kg/(m^2) [...] being worked up for possible intracranial event. MINER PICK cleared patient for regular diet and thin liquids. Patient has been tolerating this well, but per RN this morning he did not eat d/t nausea. Thiscould be attributed to pain meds on empty stomach. MINER PICK and OT in with patient at time of attempt this morning, will check back in afternoon. Patient seen this afternoon having eaten ~50% of his lunch, appeared to still be eating as well. 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 He is not sure if he has [...] 98 % SpO2: [94 %-100 %] 04/14 701 - 04/15 700 In: 2540.8 [P.O.:680; I.V.:1709.8] Out: 1225 [Urine:1225] Physical Exam: General: NAD HEENT: normocephalic, anicteric sclerae CVS: RRR Pulm: breathing comfortably Abd: soft, non-tender, non-distended. Skin: warm, dry Ext: LUE wound vac c/d/i and sealed to suction. Pos radial pulse signal. Good capillary refill. Able to wiggle fingers and move wrist Wound base clean. Neuro: Grossly intact, nonfocal. Recent Labs 04/15/1845604/15/1844604/14/1854704/13/1814 WBC -- 5.0 5.4 5.3 HGB -- 7.5* 7.5* 7.8* HCT -- 23.3* 22.9* 23.3* PLATELET -- 224 208 190 PT 12.9* -- 15.1* 17.3* INR 1.2 -- 1.4 1.6 PTT 27 -- 28 29 Recent Labs 04/15/1844604/14/1854704/13/18813 NA 138 138 138 K 4.6 4.1 [...] kidney disease. - No acute indication for SEARCH SPECIALIST, Strict intake and out put monitoring, Daily [...] 94 % SpO2: [93 %-99 %] 04/13 0701 - 04/14 0700 In: 1454 [P.O.:560; I.V.:737] Out: 1825 [Urine:1825] [...] kidney disease. - No acute indication for SEARCH SPECIALIST, Strict intake and out put monitoring, Daily weights, Renal dosing for medications - Hypertension: was on hydralazine 50 mg BID,diltiazem 120 mg XT daily ,metorpolol 50 mg TID,losartan 25 mg daily at home.Will recommend to restart his home meds and continue holding losartan in the setting of TRISTIAN. Tim Ogden MD * Karis Mejia EMBLEM FUSER TENDER - 04/13/2018 1:17 PM EDT O: Requested by CM to continue to communicate with Mother re discharge planning. Wage And Salary Specialist spoke with Mother today who is glad to hear that patient is progressing. Mother has an appointment on 04/15/18 with the [place] [facility] to discuss [place]. She also had questions about filing for SSDI for patient. Wage And Salary Specialist suggested that she contact with [facility] officeand make an appointment to speak with someone there. Wage And Salary Specialist also indicated that Mother should take along supportive friend as there can be a lot of information to digest and understand. A: Mother remains pleasant and actively engaged in treatment planning for patient. She is hopeful that he will be able to complete his rehab stay at [facility] but understands that he may need to go farther from home. P: Will continue to follow with team, liaison with Mother. Available to assist as needed/requested. 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 -No acute indication for SEARCH SPECIALIST ,,Strict intake and out put monitoring,Daily weights,Renal [...] clean. Neuro: Grossly intact, nonfocal. Recent Labs 04/13/1881304/12/18 0840 04/11/18 0555 WBC 5.3 5.0 5.7 HGB 7.8* 7.9* 7.4* HCT 23.3* 24.0* 22.2* PLATELET 190 183 150 PT 17.3* 20.0* 26.8* INR 1.6 1.8 2.4 PTT 29 32 37 Recent Labs 04/13/1881304/12/18 0840 04/11/18 0555 NA 138 140 144 [...] kidney disease. - No acute indication for SEARCH SPECIALIST, Strict intake and out put monitoring, Daily weights, Renal dosing for medications - Hypertension: was on hydralazine 50 mg BID,diltiazem 120 mg XT daily ,metorpolol 50 mg TID,losartan 25 mg daily at home.Will recommend to restart his home meds and continue holding losartan in the setting of TRISTIAN. Tim Ogden MD * Ajay Alexandre - 04/12/2018 2:08 PM EDT Bottoming Machine Operator Encounter Note Patient Name: Christy Ambrose : [id number] MR#: [id number] Admit Date: 04/06/2018 12:58 PM Hospital Day 6 days Narrative: Seen on ethnoarchaeologist Rounds. Sitting in recliner. Cordial. Expression bemused, [...] 97 % SpO2: [90 %-97 %] 04/11 0701 - 04/12 0700 In: 795.2 [...] Neuro: Grossly intact, nonfocal. Lines/Drains: Recent Labs 04/12/18 0840 04/11/18 0555 04/10/18 0535 04/09/182024 WBC 5.0 5.7 5.8 -- HGB 7.9* 7.4* 7.3* -- HCT 24.0* 22.2* 22.0* -- PLATELET 183 150 105* -- PT 20.0* 26.8* 28.7* 30.4* INR 1.8 2.4 2.6 2.7 PTT 32 37 36 37 Recent Labs 04/12/18 0840 04/11/18 0555 04/10/18 0535 NA 140 144 144 K 4.4 4.5 4.3 CL 106 110* 109* CO2 20* 22 23 BUN 31* 33* 33* CREATININE 2.35* 2.33* 2.59* GLUCOSE 113 112 112 CALCIUM 7.4* 7.3* 7.9* ASSESSMENT: Christy Ambrose is a 57 y.o. [...] chronic kidney disease. -No acute indication for SEARCH SPECIALIST, Strict intake and out put monitoring, Daily weights, Renal dosing formedications - Hypertension: was on hydralazine 50 mg BID,diltiazem 120 mg XT daily ,metorpolol 50 mg TID,losartan 25 mg daily at home.Will recommend to restart his home meds and continue holding losartan in the setting of TRISTIAN. 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 Transplant team is consulted for assist in management of post transplant CKD patient and immunosuppression therapy. S: Was seen in his room,seems to be back to his baseline.Maintaining good UOP and creatinine back to his baseline. PHYSICAL EXAM: Intake/Output Summary (Last 24 hours) at 04/12/18 0918 Last data filed at 04/12/18 0700 Gross [...] extremities . STUDIES: Labs: CBC: Recent Labs 04/11/18 0555 04/10/18 0535 04/09/18 0305 WBC 5.7 5.8 8.1 HGB 7.4* 7.3* 7.8* PLATELET 150 105* 100* Chemistry: Recent Labs 04/11/18 0555 04/10/18 0535 04/09/18 [...] -2.3 -2.6 .He also had laparoscopic left hydaburg nephrectomy due to papillary renal cell ca [...] chronic kidney disease. -No acute indication for SEARCH SPECIALIST ,,Strict intake and out put monitoring,Daily weights,Renal [...] of : 1960 PCP: Carroll Garcia, DO ID: Christy Ambrose is a 57 [...] 04/11/2018 Neurology resident, PGY-3 Vascular Neurology Pager [phone] Associated attestation - Tim Collins MD - [...] Precautions/Restrictions: fall, weight bearing Precautions Comments: NWB KEISHA Assessment: Pt seen today for pt eval. [...] spirometry Anticipated Discharge Disposition: inpatient rehabilitation facility [facility] Inpatient Physical Therapy Patient status, treatment interventions, and goals discussed with student. I am in agreement with all details and associated flowsheet rows as documented and was present for all aspects of the patient treatment session. Kelsey Hua, PT Pager # [phone] PT Evaluation Code Rationale: ?? Diagnosis & [...] ml/min N18.4 ??? 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 residential current use of immunosuppressive drug Z79.899 ??? [...] on arrival Pertinent History of Current Problem Christymaty Delunaon [...] cook, clean independently. 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 pt usually [...] Assessment/Treatment Assistive Device (Bed Mobility) bed rails [id number] [place] (Bed Mobility) minimum assist (75% patient effort) Comment (Bed Mobility) HOB elevated Transfer Assessment/Treatment [place] (Sit-Stand Transfers) moderate assist (50% patient effort);verbal cues required;2 person assist required [place] (Stand-Sit Transfers) moderate assist (50% patient effort);verbal cues required;2 person assist required [id number] Assistive Device (Transfers) rolling walker (initially transfered mod x2 w/o AD, poor balance) Safety Issues (Transfers) loses balance backward (lost balance forward initially) Impairments (Transfers) balance impaired;strength decreased;pain Comment (Transfers) cues for hand placement on RW Gait Assessment/Treatment [place] (Gait) moderate assist (50% patient effort);verbal cues [...] good balance Sitting Balance: Dynamic fair balance [id number]-ug-Wfleu Balance poor balance Standing Balance: Static poor [...] to sit/sit to sidelying Bed Mobility Goal, [place] Level independent Gait Training Goal Gait Training Goal, Date Established 04/11/18 Gait Training Goal, Time to Achieve 2 wks Gait Training Goal, [place] Level independent Gait Training Goal, Assist Device other (see comments) (LRD ) Gait Training Goal, Distance to Achieve 150 ft Transfer Training Goal Transfer Training Goal, Date Established 04/11/18 Transfer Training Goal, Time to Achieve 2 wks Transfer Training Goal, Activity Type all transfers Transfer Train Goal, [place] Level independent Transfer Training Goal, Assist Device [...] treatment session. Kelsey Hua PT Pager # [phone] * Karis Mejia MSW - 04/11/2018 1:15 PM EDT Discharge Planning: O: Requested by CM-RN to contact Mother re her concerns around housing. Wage And Salary Specialist spoke with Mother who relayed that she [...] and plans to speak with her local [place] [facility]. Wage And Salary Specialist suggested to Mother that she begin to have a conversation with them around [place] as that would be the payor source for patient. Mother is also interested in finding out what the discharge plan will be. Wage And Salary Specialist relayed that a CM-RN would be in [...] Lines/Drains: Recent Labs 04/11/18 0555 04/10/18 0535 04/09/18202404/09/18 1003 04/09/18 0305 04/08/18 1045 WBC 5.7 [...] longer needed); will follow up with Transplant Nephrology/[facility] today Tim Ogden MD * Odalis Castanon [...] MD/NEHA, PGY-5 Section of Vascular Surgery, Pager [phone] * Tim Ogden MD - 04/10/2018 10:57 [...] of : 1960 PCP: Carroll Garcia, DO ID: Christy Ambrose is a 57 [...] 04/09/2018 Neurology resident, PGY-4 Vascular Neurology Pager [phone] ... I saw and evaluated the patient [...] MD/NEHA, PGY-5 Section of Vascular Surgery, Pager [phone] * Alfonzo Miles MD - 04/08/2018 4:56 [...] initiated. Alfonzo Miles MD [place] [address] Pager: [phone], #[phone] Email: [email or web address] * Sharmin Barth RN - 04/08/2018 12:34 PM EDT [facility] RESPONSE TEAM NOTE Name: Christy Ambrose Age: 57 y.o. Sex; Male Date of : 1960 Responding Members: BENJAMIN ROGEL RCP Date/Time of Admission: 04/06/2018 12:58 PM Unit/Room: 427 4W Service: Vascular sx Attending: Quin Peter Visiting Nurse present? Yes Attending Contacted? Yes Time Activated: [...] (H) 04/08/2018 PLAN / INTERVENTION Labs ordered: Keppra level Tests ordered: eeg Interventions: oxygen, NRB [...] f/u Wednesday as appropriate. Negrita Arnold OT #[phone] * Veronica Holt RN - 04/08/2018 12:09 [...] Please page me with any questions. 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 /2 NS with Custom Additives 50 mL/hr at [...] Latest Ref Range: Clear Hazy (A) Spec [place] UA Latest Ref Range: 1.002 - 1.030 [...] can not be managed medically needing emergent SEARCH SPECIALIST.No indication for dialysis/CVVH -Had good U.out put [...] tolerated to keep BP stable .currently on [id number] mg BID and hydralazine,labetolol IV prn #5.Ruptured [...] vascular,neurology teams Radha Hughes MD Nephrology Fellow #[phone] * Veronica Holt RN - 04/08/2018 9:47 AM EDT Pt arrived from SICU to 4PCU at 0935, disoriented to time place and [...] HTN, epilepsy,and prior TBI who presents to [facility] s/p LUE bleeding with PEA arrest. Description [...] Pt intubated in field. Pt taken to [facility], where second tourniquet applied and pt received 6U PRBC. Transferred to [facility] for further care. ?? Of note, per [...] Pneumonia ??? TBI (traumatic brain injury) 1979 PSHx: Past Surgical History: Procedure Laterality Date ??? CREATED BY INTERFACE Entered not Verified Procedure Date: 09/19/2010 ??? KIDNEY TRANSPLANT KIDNEY TRANSPLANT / RECIPIENT/LT Procedure Date: 11/26/2002 ? ? PRO DEBRIDEMENT SUBCUTANEOUS TISSUE 20 SQCM/< Left 02/20/2016 DEBRIDEMENT SKIN AND SUBCU, HEAD/NECK performed by Miguel Angel Moreno MD at [facility] MAIN OR ??? PRO DECOMPRESS FOREARM, BRACH ART EXPLOR Left 04/06/2018 FASCIOTOMY, FOREARM, WITH BRACHIAL ARTERY EXPLORATION (WRVU 8.41) performed by Lida Peter, [facility] MA[facility] OR ??? PRO DIRECT REPAIR RUPTURED ANEURYSM, AXILLO-BRACHIAL ARM INCIS Left 04/06/2018 @REPAIR, RUPTURED AXILLARY OR BRACHIAL ARTERY ANEURYSM BY ARM INCISION (WRVU *) performed by Lida Peter MD at [facility] OR ??? PRO EXC PAROTD, TOTAL, UNILAT RAD NECK Left 02/05/2016 @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, TOTAL, WITH UNILATERAL RADICAL NECK DISSECTION performed by Miguel Angel Moreno MD at [facility] OR ??? PRO EXC SKIN MALIG 3.1-4CM FACE, FACIAL Left 02/05/2016 EXC MALIGNANT LESION, 3.1 TO 4.0CM, FACE performed by Miguel Angel Moreno MD at [facility] MAIN OR ? ? PRO EXC SKIN MALIG >4CM TRUNK, ARM, LEG 04/19/2012 EXC MALIGNANT LESION, MICHAEL > 4.0CM, TRUNK performed by SABRINA MEDRANO at [facility] OR ??? PRO LAP, RADICAL NEPHRECTOMY Left 05/31/2017 @LAPAROSCOPY, RADICAL NEPHRECTOMY (WRVU 25.06) performed by Jax Mills MD at [facility] OR ??? PRO REBL VES GRAFT, UP EXTREM Left 04/06/2018 REPAIR BLOOD VESSEL WITH GRAFT OTHER THAN VEIN, UPPER EXTREMITY (WRVU 15.83) performed by Lida Peter MD at [facility] OR ??? PRO RELIEVE PRESSURE ON NERVE(S) Left 04/06/2018 (MSURG) CARPAL TUNNEL (WRVU 4.82) performed by Hay Sparks MD at [facility] OR ??? PRO REPAIR INTERMEDIATE S/A/T/E 2.6-7.5 CM 04/19/2012 REPAIR INTERMEDIATE WOUND, (NO HANDS OR FEET) 2.6 TO 7.5CM, UPPER EXTREMITY performed by SABRINA MEDRANO at [facility] OR ??? PRO REVISE MEDIAN N/CARPAL TUNNEL SURG Left 04/06/2018 MEDIAN NERVE DECOMPRESSION (CARPAL TUNNEL RELEASE) (WRVU 4.97) performed by Lida Peter MD [facility] MAIN OR ? ? PRO SPLIT GRFT, HEAD, FAC, HAND, FEET <100SQCM N/A 02/20/2016 SPLIT THICKNESS SKIN SPLIT GRAFT,100SQ CM OR LESS, NECK performed by Miguel Angel Moreno MD at [facility] MA[facility] OR ??? PRO UPPER GI ENDOSCOPY, BIOPSY N/A 05/13/2017 EGD WITH BIOPSY (WRVU 2.49) performed by Aditya Barrera MD at [facility] ENDOSCOPY ??? PRO VASCULAR SURGERY PROCEDURE UNLIST Left 11/20/2015 LIGATION\REPAIR AV FISTULA performed by Camilo Ireland MD at [facility] MA[facility] OR ??? PRO VASCULAR SURGERY PROCEDURE UNLIST Left 11/20/2015 EXCISION VEIN FROM HAND performed by Camilo Ireland MD at [facility] MAIN OR ??? 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 [...] epilepsy, and prior TBI who presents to [facility] s/p hemorrhagic shock and PEA arrest from [...] care per primary Vascular team. Please page #[phone] for any further questions or concerns. Procedures: [...] -none Sabrina Armas MD 04/07/2018 Trauma pager [phone] * Apple Gutierrez MD - 04/07/2018 6:59 [...] Callejas RN - 04/06/2018 9:30 PM EDT 0: RN spoke with patient's mother regarding his [...] to hear from CT for ordered testing. 0: Report to oncoming shift, care of the [...] and tender to touch. Pt transferred to [facility] with all belongings. Report given to oncoming RN. * Natalya Minaya MD - 04/08/2018 12:59 PM EDT Critical Care - Admission Note History of Present Illness: Christy Ambrose is a 57 y/o M w/ PMH developmental delay, epilepsy, IGA nephropathy (s/p renal transplant 2002, on tac & mycophenalate) left hydaburg nephrectomy (2016), HTN who was found down on 04/06 at his home w/ bleeding from L AVF. He had PEA arrest, ROSC w/ chest compressions, 1 dose epi. Tourniquet applied to L arm in field, pt intubated and brought to [facility]. Received 6 units PRBC & transferred to [facility]. On arrival GCS 11, taken to OR [...] ml/min N18.4 ??? 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 residential current use of immunosuppressive drug Z79.899 ??? [...] performed by Miguel Angel Moreno MD at [facility] OR ??? PRO DECOMPRESS FOREARM, BRACH ART EXPLOR Left 04/06/2018 FASCIOTOMY, FOREARM, WITH BRACHIAL ARTERY EXPLORATION (WRVU 8.41) performed by Lida Peter MDat [facility] OR ??? PRO DIRECT REPAIR RUPTURED ANEURYSM, AXILLO-BRACHIAL ARM INCIS Left 04/06/2018 @REPAIR, RUPTURED AXILLARY OR BRACHIAL ARTERY ANEURYSM BY ARM INCISION (WRVU *) performed by Lida Peter MD at [facility] OR ??? PRO EXC PAROTD, TOTAL, UNILAT RAD NECK Left 02/05/2016 @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, TOTAL, WITH UNILATERAL RADICAL NECK DISSECTION performed by Miguel Angel Moreno MD at [facility] OR ??? PRO EXC SKIN MALIG 3.1-4CM FACE, FACIAL Left 02/05/2016 EXC MALIGNANT LESION, 3.1 TO 4.0CM, FACE performed by Miguel Angel Moreno MD at [facility] OR ? ? PRO EXC SKIN MALIG >4CM TRUNK, ARM, LEG 04/19/2012 EXC MALIGNANT LESION, MICHAEL > 4.0CM, TRUNK performed by SABRINA MEDRANO at [facility] OR ??? PRO LAP, RADICAL NEPHRECTOMY Left 05/31/2017 @LAPAROSCOPY, RADICAL NEPHRECTOMY (WRVU 25.06) performed by Jax Mills MD at [facility] OR ??? PRO REBL VES GRAFT, UP EXTREM Left 04/06/2018 REPAIR BLOOD VESSEL WITH GRAFT OTHER THAN VEIN, UPPER EXTREMITY (WRVU 15.83) performed by Lida Peter MD at [facility] MAIN OR ??? PRO RELIEVE PRESSURE ON NERVE(S) Left 04/06/2018 (MSURG) CARPAL TUNNEL (WRVU 4.82) performed by Hay Sparks MD at [facility] MAIN OR ??? PRO REPAIR INTERMEDIATE S/A/T/E 2.6-7.5 CM 04/19/2012 REPAIR INTERMEDIATE WOUND, (NO HANDS OR FEET) 2.6 TO 7.5CM, UPPER EXTREMITY performed by SABRINA MEDRANO at [facility] MA[facility] OR ??? PRO REVISE MEDIAN N/CARPAL TUNNEL SURG Left 04/06/2018 MEDIAN NERVE DECOMPRESSION (CARPAL TUNNEL RELEASE) (WRVU 4.97) performed by Lida Peter MD [facility] MAIN OR ? ? PRO SPLIT GRFT, HEAD, FAC, HAND, FEET <100SQCM N/A 02/20/2016 SPLIT THICKNESS SKIN SPLIT GRAFT,100SQ CM OR LESS, NECK performed by Miguel Angel Moreno MD at [facility] MA[facility] OR ??? PRO UPPER GI ENDOSCOPY, BIOPSY N/A 05/13/2017 EGD WITH BIOPSY (WRVU 2.49) performed by Aditya Barrera MD at [facility] END[facility] ??? PRO VASCULAR SURGERY PROCEDURE UNLIST Left 11/20/2015 LIGATION\REPAIR AV FISTULA performed by Camilo Ireland MD at [facility] MAIN OR ??? PRO VASCULAR SURGERY PROCEDURE UNLIST Left 11/20/2015 EXCISION VEIN FROM HAND performed by Camilo Ireland MD at [facility] MA[facility] OR ??? 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 [...] 7.27* PO2ART 65* 152* 168* 228* 379* [id number] 31* 34* 39 40 36 BEART -11.8* [...] Custom Additives 50 mL/hr at 04/07/18 1739 Procedure Component Value Units Date/Time ? Body Fluid Culture, Aerobic & Anaerobic Fluid [[id number]] Collected: 04/06/18 1415 ? Lab Status: Preliminary result Specimen: Fluid Updated: 04/07/18 1332 ? Body Fluid Culture, Aerobic [[id number]] Collected: 04/06/18 1415 ? Lab Status: Preliminary result Specimen: Fluid Updated: 04/07/18 0804 ? Body Fluid Culture Few normal cutaneous shaina ? Gram Stain -- ? Few Neutrophils seen No microorganisms seen. ? Anaerobic Culture [[id number]] Collected: 04/06/18 1415 ? Lab Status: Preliminary [...] dialysis fistula Consults: Nephrology IMPRESSION/ RECOMMENDATIONS: Christy Delunaon is a 57 y/o M with [...] can not be managed medically needing emergent SEARCH SPECIALIST.No indication for dialysis/CVVH -Had good U.out put [...] tolerated to keep BP stable .currently on [id number] mg BID and hydralazine,labetolol IV prn ?? [...] Disposition: Critical Care Red 1 Team (pager [phone]) Natalya Minaya MD 04/08/2018 * Erwin Marino MD - 04/06/2018 5:03 PM EDT Critical Care - Admission Note History of Present Illness: Christy Ambrose is a 57 y.o. male with PMH of HTN, TBI w/ epilepsy, gout, IgA nephropathy s/p donor renal transplant 2002 (on tacrolimus and cellcept) complicated by delayed graft function andrecurrent IgA nephropathy and Prograf toxicity, laparoscopic L [place] radical nephrectomy May 2017 for papillary carcinoma, HTN, previous revision of L AVF due to massive size. Recently put on coumadin for infection of left forearm with swelling, suspected to be DVT. Presents to [facility] with hemorrhagic shock s/p PEA arrest secondary to torrential left upper extremity fistula bleeding. Per EMS the patient had a severe amount of blood loss in the bathroom and bedroom that resulted in PEA cardiac arrest at the scene. He received epinephrine, 2.5 L of normal saline with ROSC obtained. Arrived at [facility] and sedated and then received 6 units [...] ??? TBI (traumatic brain injury) 1979 Past and Surgical History: Past Surgical History: Procedure Laterality Date ??? CREATED BY INTERFACE Entered not Verified Procedure Date: 09/19/2010 ??? KIDNEY TRANSPLANT KIDNEY TRANSPLANT / RECIPIENT/LT Procedure Date: 11/26/2002 ? ? PRO DEBRIDEMENT SUBCUTANEOUS TISSUE 20 SQCM/< Left 02/20/2016 DEBRIDEMENT SKIN AND SUBCU, HEAD/NECK performed by Miguel Angel Moreno MD at [facility] MAIN OR ??? PRO EXC PAROTD, TOTAL, UNILAT RAD NECK Left 02/05/2016 @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, TOTAL, WITH UNILATERAL RADICAL NECK DISSECTION performed by Miguel Angel Moreno MD at [facility] OR ??? PRO EXC SKIN MALIG 3.1-4CM FACE, FACIAL Left 02/05/2016 EXC MALIGNANT LESION, 3.1 TO 4.0CM, FACE performed by Miguel Angel Moreno MD at [facility] OR ? ? PRO EXC SKIN MALIG >4CM TRUNK, ARM, LEG 04/19/2012 EXC MALIGNANT LESION, MICHAEL > 4.0CM, TRUNK performed by SABRINA MEDRANO at [facility] OR ??? PRO LAP, RADICAL NEPHRECTOMY Left 05/31/2017 @LAPAROSCOPY, RADICAL NEPHRECTOMY (WRVU 25.06) performed by Jax Mills MD at [facility] MA[facility] OR ??? PRO REPAIR INTERMEDIATE S/A/T/E 2.6-7.5 CM 04/19/2012 REPAIR INTERMEDIATE WOUND, (NO HANDS OR FEET) 2.6 TO 7.5CM, UPPER EXTREMITY performed by SABRINA MEDRANO at [facility] OR ? ? PRO SPLIT GRFT, HEAD, FAC, HAND, FEET <100SQCM N/A 02/20/2016 SPLIT THICKNESS SKIN SPLIT GRAFT,100SQ CM OR LESS, NECK performed by Miguel Angel Moreno MD at [facility] OR ??? PRO UPPER GI ENDOSCOPY, BIOPSY N/A 05/13/2017 EGD WITH BIOPSY (WRVU 2.49) performed by Aditya Barrera MD at [facility] ENDOSCOPY ??? PRO VASCULAR SURGERY PROCEDURE UNLIST Left 11/20/2015 LIGATION\REPAIR AV FISTULA performed by Camilo Ireland MD at [facility] MA[facility] OR ??? PRO VASCULAR SURGERY PROCEDURE UNLIST Left 11/20/2015 EXCISION VEIN FROM HAND performed by Camilo Ireland MD at [facility] MA[facility] OR ??? 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 [...] mcL Appearance UA Hazy (A) Clear Spec [place] UA 1.023 1.002 - 1.030 Color UA [...] No microorganisms seen. Radiology: XR Chest and [id number] 04/06 Prominence of the superior mediastinum may be [...] Ambrose Level of Activation: Trauma 9 MR#: [id number] [ ]Scene Call or [X]Hospital Transfer : [id number] CC/MECHANISM OF INJURY: 57 y.o. Male s/p [...] HTN, epilepsy,and prior TBI who presents to [facility] s/p LUE bleeding with PEA arrest. Description [...] Pt intubated in field. Pt taken to [facility], where second tourniquet applied and pt received 6U PRBC. Transferred to [facility] for further care. Of note, per Dr. [...] performed by Miguel Angel Moreno MD at [facility] OR ??? PRO EXC PAROTD, TOTAL, UNILAT RAD NECK Left 02/05/2016 @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, TOTAL, WITH UNILATERAL RADICAL NECK DISSECTION performed by Miguel Angel Moreno MD at [facility] OR ??? PRO EXC SKIN MALIG 3.1-4CM FACE, FACIAL Left 02/05/2016 EXC MALIGNANT LESION, 3.1 TO 4.0CM, FACE performed by Miguel Angel Moreno MD at [facility] OR ? ? PRO EXC SKIN MALIG >4CM TRUNK, ARM, LEG 04/19/2012 EXC MALIGNANT LESION, MICHAEL > 4.0CM, TRUNK performed by SABRINA MEDRANO at [facility] OR ??? PRO LAP, RADICAL NEPHRECTOMY Left 05/31/2017 @LAPAROSCOPY, RADICAL NEPHRECTOMY (WRVU 25.06) performed by Jax Mills MD at [facility] MA[facility] OR ??? PRO REPAIR INTERMEDIATE S/A/T/E 2.6-7.5 CM 04/19/2012 REPAIR INTERMEDIATE WOUND, (NO HANDS OR FEET) 2.6 TO 7.5CM, UPPER EXTREMITY performed by SABRINA MEDRANO at [facility] MA[facility] OR ? ? PRO SPLIT GRFT, HEAD, FAC, HAND, FEET <100SQCM N/A 02/20/2016 SPLIT THICKNESS SKIN SPLIT GRAFT,100SQ CM OR LESS, NECK performed by Miguel Angel Moreno MD at [facility] MA[facility] OR ??? PRO UPPER GI ENDOSCOPY, BIOPSY N/A 05/13/2017 EGD WITH BIOPSY (WRVU 2.49) performed by Aditya Barrera MD at [facility] ENDOSCOPY ??? PRO VASCULAR SURGERY PROCEDURE UNLIST Left 11/20/2015 LIGATION\REPAIR AV FISTULA performed by Camilo Ireland MD at [facility] MAIN OR ??? PRO VASCULAR SURGERY PROCEDURE UNLIST Left 11/20/2015 EXCISION VEIN FROM HAND performed by Camilo Ireland MD at [facility] MAIN OR ??? 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 [...] Normal RBC Morphology Abnormal Ovalocytes 1-5 /HPF [place] Cells 1-5 /HPF Rapid Drug Screen, Urine [...] mcL Appearance UA Hazy (A) Clear Spec [place] UA 1.023 1.002 - 1.030 Color UA [...] epilepsy, and prior TBI who presents to [facility] s/p LUE bleeding with PEA arrest now [...] to the planned procedure. Hand Hygiene: The emissions repair technician did perform hand hygiene prior to line insertion. Catheter type: PICC Lot number: [id number] Procedure Technique: Skin was prepped with chlorhexidine. [...] vac dressing completed. Left forearm wound measures [id number] with clean, well granulated base. PANCHITO Eng [...] Reyna MD - 04/09/2018 9:03 AM EDT [facility] Department of Neurology Critical Care Prolonged EEG Report Name of the Patient: Christy Ambrose Date of : 1960 Date of Service: 04/08 to 04/09/18 Resident/Fellow: none Attending: Waqar BRIEF HISTORY Christy Ginna Ambrose is a 57 y.o. year old [...] PE 100 mg PE Intravenous Q8H John Rsoe MD 100 mg PE at 04/09/18 0011 [...] mg 10 mg Intravenous Q6H PRN Natalya Mianya MD ??? labetalol (NORMODYNE,TRANDATE) injection 20 mg 20 mg Intravenous Q4H PRN Natalya Minaya MD 20mg at 04/08/18 1745 METHODS A 21 channel digitized electroencephalogram was performed in the Intensive Care Unit by the [facility]. The 10/20 international [...] PM EDTAssociated Order(s): EEG AWAKE, ASLEEP, DROWSY [facility] Department of Neurology In Patient Routine EEG [...] tablet 50 mg 50 mg Oral Q8H [facility] Angelika Aguilera, PA 50 mg at 04/08/18 1440 ??? [...] channel digitized electroencephalogram was performed in the [facility] Clinical Neurophysiology Laboratory. The 10/20 international system of electrode placement was used and bipolar and referential electrode montages were recorded. In addition to EEG the patient was monitored for EKGand lateral/vertical eye movements. Video was recorded during the session. The duration of the recording was 30 minutes. AP PROCESSOR'S REPORT: Performed by: AT Patient was not sleep deprived. Sleep was not attained. Photic stimulation was performed. Hyperventilation was not performed. Effort was was not adequate. Movement and other artifact was not significant. Comments: none documented in this encounter ED Notes * Erwin Hernandez MD - 04/06/2018 1:47 PM EDT ED Attending Note: I saw Christy Ambrose in conjunction with the trauma team. [...] the ICU afterwards. Erwin Hernandez MD 04/06/18 1349 * John Nix RN - 04/06/2018 1:23 [...] Arms reach Surveillance [continuous indirect monitoring]: Masimo, Call daniels within reach, Purposeful rounding Patient-specific fall prevention [...] ADLs]: Eyes on Surveillance [continuous indirect monitoring]: mariela Alfaro rounding, near nursing station Patient-specific fall prevention interventions for sensory deficits provided, if applicable: [X] Yes bed alarm, call light, lighting adjusted, near nursing station [facility] GOAL OUTCOME EVALUATION: Goal: Skin Integrity/Wound Healing Patient will demonstrate the desired outcomes by discharge/transition of care. Outcome: Ongoing (Interventions Implemented as Appropriate) 04/25/18 3106 Skin Integrity Impairment, Risk/Actual (Adult) Skin Integrity/Wound Healing making progress toward outcome Problem: Patient Care Overview Goal: Plan of Care Review Outcome: Ongoing (Interventions Implemented as Appropriate) 04/27/18 1412 05/02/18 1913 Coping/Psychosocial Plan Of Care Reviewed With -- patient Plan of Care Review Progress improving -- Goal: Fall Prevention-Safe Patient Handling Outcome: Ongoing (Interventions Implemented as Appropriate) 05/02/18189905/02/18191205/03/18 0500 Daily Care Interventions Self-Care Promotion independence [...] Control Outcome: Ongoing (Interventions Implemented as Appropriate) 05/02/18189905/02/181912 Safety Interventions Isolation Precautions standard precautions maintained [...] briefly with patient to update him that [facility] in [place], [place] is reviewing him for possible admission this week. Pt was appreciative for this news. Pt has filed for LTC Medicaid with [facility]. Pt's staff nurse Lalitha mensah. I was going to call pt's brother Lucas to discuss. EMBLEM FUSER TENDER Sandeep Wan had just talked with pt's brother and mother Ilda and informed me that a tentative family meeting has been set up for tomorrow at 3:00 pm. CM will be part of the meeting; will continue to follow. Padmini Ruiz RN [phone] * Plan of Care - Naz Robbins [...] Reorient when needed, encourage ambulations -- 04/27/18 042 Mutuality/Individual Preferences What Anxieties, Fears or Concerns Do You Have About Your Health or Care? My hand still has some numbness. What Questions Do You Have About Your Health or Care? -- What Information Would Help Us Give You More Personalized Care? -- Individualization Patient Specific Goals -- Patient Specific Interventions -- Goal: Fall Prevention-Safe Patient Handling Outcome: Ongoing (Interventions Implemented as Appropriate) 05/01/1883005/01/18199905/01/182025 Daily Care Interventions Self-Care Promotion -- independence [...] Assessment Outcome: Ongoing (Interventions Implemented as Appropriate) 04/18/18354 Discharge Needs Assessment Concerns To Be [...] 04/30/18 1903 Health Knowledge, Opportunity to Enhance (Adult,NICU,[place],Obstetrics,Pediatric) Knowledgeable about Health Subject/Topic making progress toward [...] PRN PICC dressing change completed as per [facility] protocol. yes Positive pressure displacement connector (Max [...] Control Outcome: Ongoing (Interventions Implemented as Appropriate) 04/29/18 2100 04/30/18 0830 Safety Interventions Isolation Precautions standard precautions [...] Ongoing (Interventions Implemented as Appropriate) 04/27/18 1412 04/29/182017 Coping/Psychosocial Plan Of Care Reviewed With -- [...] none * Plan of Care - Dania Harry RN - 04/29/2018 6:40 PM EDT Problem: Patient Care Overview Goal: Plan of Care Review Outcome: Ongoing (Interventions Implemented as Appropriate) 04/27/18 14104/29/18 1233 Coping/Psychosocial Plan Of Care Reviewed With [...] Intervention: Prevent/Manage Excess Moisture 04/27/18 1458 04/28/18 0800 Hygiene Care Perineal Care perineal area cleansed -- Bathing/Skin Care -- bath, chlorhexidine Skin Interventions Skin Protection -- adhesive use limited Intervention: Prevent/Minimize Sheer/Friction Injuries 04/28/18 0800 Positioning Positioning/Transfer Devices pillows Skin Interventions Pressure [...] Plan of Care Review 04/27/18 1412 04/28/18 0800 Coping/Psychosocial Plan Of Care Reviewed With [...] Ongoing (Interventions Implemented as Appropriate) 04/27/18 1412 04/27/185 Coping/Psychosocial Plan Of Care Reviewed With -- [...] 04/27/2018 3:19 PM EDT OFFICE OF CARE MANAGEMENT/Dampproofer/PROGRESS NOTE e-DH reviewed. Report received from vascular. [...] broughthim in. Plan is to look for [facility] and I have submitted to other [...] Discharge Disposition: (P) inpatient rehabilitation facility Pager: [phone] IRLANDA MUNOZ 04/27/2018 Occupational Therapy Rehabilitation Department 04/27/18 1412 Rehab Evaluation Document Type therapy note (daily note) Total Evaluation Minutes, Occupational Therapy 24 Patient Effort good Symptoms Noted During/After Treatment none General Information Patient Profile Review yes Patient/Family/Caregiver Comments/Observations I can continuous pickling line pickler a can of soup with my L [...] Assessment/Treatment Assistive Device (Bed Mobility) bed rails Lye-tj-Waxtyd [place] (Bed Mobility) conditional independence Impairments (Bed Mobility) flexibility decreased;ROM (range of motion) decreased;strength decreased Comment (Bed Mobility) HOB slightyly elevated; vc's to adjust HOB Transfer Assessment/Treatment Chair-Bed [place] (Transfers) contact guard assist [place] (Sit-Stand Transfers) contact guard assist [place] (Stand-Sit Transfers) contact guard assist [place] (Toilet Transfers) (pt continues to report ambulating to bathrom for toileting) Impairments (Transfers) balance impaired;ROM (range of motion) decreased;strength decreased Gait Assessment/Treatment [place] (Gait) contact guard assist Assistive Device (Gait) gait belt Distance in Feet (Gait) 750' Safety Issues (Gait) balance decreased during turns;step length decreased Impairments (Gait) balance impaired;coordination impaired Comment (Gait) mild ataxia; no lob noted; assist to carry wound vac Lower Body Dressing Assessment/Training Position (LB Dressing) standing [place] Level (LB Dressing) contact guard assist Impairments [...] good balance Sitting Balance: Dynamic fair balance Qzv-ld-Lzdvl Balance fair balance Standing Balance: Static fair [...] in. ?? I have met with the patient/software sales representative to discuss discharge planning needs. I have provided the [facility], Office of Care Management letter from the School Cafeteria Head Cook pertaining to rehab referrals. I have also provided a letter describing our affiliations within the [facility] and educated them about their right to choose where referrals are placed. ?? I reviewed the different levels of rehab including SNF, swing, acute and LTAC with the patient/software sales representative. ?? The patient/software sales representative has been provided a list of facilities within their preferred geographic area. ?? I have requested that the patient/software sales representative provide at least three choices for referral. ?? The patient/software sales representative have requested referrals to: ?? 1. [facility] ?? 2. [facility] ?? 3. [facility]. View ?? Expected date of discharge: 3-5 days Note routed to Resourcing Advisor who will communicate referrals to facilities and provide any required information. * Plan of Care - Helen Denny RN - 04/27/2018 10:22 AM EDT Problem: Health Knowledge, Opportunity to Enhance (Adult,NICU,,Obstetrics,Pediatric) Goal: Knowledgeable about Health Subject/Topic Patient will demonstrate the desired outcomes by discharge/transition of care. Peripherally Inserted Central Catheter (PICC) Teaching Sheet Peripherally inserted central catheters (oktz-bm-bgvo) (PICC) are used when you need IV [...] midline catheter? PICC lines are used for terminal carman treatments. PICC lines may be used for [...] can be set up via the nurse Dampproofer to help you. What are possible complications [...] Vascular Access Device Selection, Insertion, and Management, [employer] Access Systems 04/15. A Review of the Efficacy, Safety, Use, and Administration of [employer], [employer] 2005 * Plan of Care - [...] Stand by assist Surveillance [continuous indirect monitoring]: Angelina, purposeful rounding, call daniels in reach Patient-specific [...] agency transportation Goal: Interdisciplinary Rounds/Family Conf 04/25/18 5986 Interdisciplinary Rounds/Family Conf Participants nursing;patient Problem: Seizure Disorder/Epilepsy (Adult) Goal: Signs and Symptoms of Listed Potential Problems Will be Absent, Minimized or Managed (SeizureDisorder/Epilepsy) Signs and symptoms of listed potential problems will be absent, minimized or managed by discharge/transition of care (reference Seizure Disorder/Epilepsy (Adult) CPG). 04/26/18 0800 Seizure Disorder/Epilepsy Problems Assessed (Seizure Disorder/Epilepsy) all * Op Note - Hay Sparks MD - 04/26/2018 12:40 PM EDT [facility] Operative Note Patient Name: Christy Ambrose : [id number] MR#: [id number] Case Date: 04/26/2018 Surgeon: Surgeon(s) and Role: [...] Aditi Mccollum MD Plastic Surgery Resident, pager [phone] Plastic surgery team pager: [phone] Attestation: Case Date: 04/26/2018 I was present and I participated during the entire procedure (does not need to include opening and closing). HAY SPARKS MD 04/27/2018 * Brief Op Note - Aditi Mccollum MD - 04/26/2018 12:36 PM EDT Brief Operative Note Patient Name: Christy Ambrose : [id number] MR#: [id number] Case Date: 04/26/2018 Surgeon: Surgeon(s) and Role: [...] Outcome: Ongoing (Interventions Implemented as Appropriate) 04/25/18 3306 Skin Integrity Impairment, Risk/Actual (Adult) Skin Integrity/Wound Healing making progress toward outcome Problem: Patient Care Overview Goal: Plan of Care Review Outcome: Ongoing (Interventions Implemented as Appropriate) 04/24/18194304/24/181999 Coping/Psychosocial Plan Of Care Reviewed With -- [...] or Care? [facility] What Questions Do You Have About Your [...] Overview Goal: Plan of Care Review 04/24/18 194 Coping/Psychosocial Plan Of Care Reviewed With patient;mother [...] Goal: Plan of Care Review 04/22/18 1412 04/23/182102 Coping/Psychosocial Plan Of Care Reviewed With -- [...] (Interventions Implemented as Appropriate) 04/22/18 1412 04/22/18 194 Coping/Psychosocial Plan Of Care Reviewed With -- [...] consulted for management of the fasciotomy wounds. Inés Sparks and Ebenezer assisted inthe initial OR case. [...] ??? TBI (traumatic brain injury) 1979 Patient Active Problem List Diagnosis Code ??? [...] ml/min N18.4 ??? 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 residential current use of immunosuppressive drug Z79.899 ??? [...] by Miguel Angel Moreno MD at [facility] MA[facility] OR ??? PRO DECOMPRESS FOREARM, BRACH ART EXPLOR Left 04/06/2018 FASCIOTOMY, FOREARM, WITH BRACHIAL ARTERY EXPLORATION (WRVU 8.41) performed by [facility]ida [facility] ??? PRO DIRECT REPAIR RUPTURED ANEURYSM, AXILLO-BRACHIAL ARM INCIS Left 04/06/2018 @REPAIR, RUPTURED AXILLARY OR BRACHIAL ARTERY ANEURYSM BY ARM INCISION (WRVU *) performed by Lida Peter MD at [facility] OR ??? PRO EXC PAROTD, TOTAL, UNILAT RAD NECK Left 02/05/2016 @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, TOTAL, WITH UNILATERAL RADICAL NECK DISSECTION performed by Miguel Angel Moreno MD at [facility] OR ??? PRO EXC SKIN MALIG 3.1-4CM FACE, FACIAL Left 02/05/2016 EXC MALIGNANT LESION, 3.1 TO 4.0CM, FACE performed by Miguel Angel Moreno MD at [facility] OR ? ? PRO EXC SKIN MALIG >4CM TRUNK, ARM, LEG 04/19/2012 EXC MALIGNANT LESION, MICHAEL > 4.0CM, TRUNK performed by SABRINA MEDRANO at [facility] OR ??? PRO LAP, RADICAL NEPHRECTOMY Left 05/31/2017 @LAPAROSCOPY, RADICAL NEPHRECTOMY (WRVU 25.06) performed by Jax Mills MD at [facility] OR ??? PRO LIGATN ANGIOACCESS AV FISTULA Left 04/19/2018 LIGATION OR BANDING OF HEMODIALYSIS FISTULA OR GRAFT UPPER EXTREMITY (WRVU 6.25) performed by Odalis Elias MD at [facility] MA[facility] OR ??? PRO NEGATIVE PRESSURE WOUND THERAPY, LESS THAN OR EQUAL TO 50 SQCM Left 04/19/2018 DRESSING CHANGE (VAC ASSISTED) UP TO 50SQ.CM (WRVU 0.55) performed by Odalis Elias MD [facility] OR ??? PRO REBL VES GRAFT, UP EXTREM Left 04/06/2018 REPAIR BLOOD VESSEL WITH GRAFT OTHER THAN VEIN, UPPER EXTREMITY (WRVU 15.83) performed by Lida Peter MD at [facility] OR ??? PRO RELIEVE PRESSURE ON NERVE(S) Left 04/06/2018 (MSURG) CARPAL TUNNEL (WRVU 4.82) performed by Hay Sparks MD at [facility] OR ??? PRO REPAIR INTERMEDIATE S/A/T/E 2.6-7.5 CM 04/19/2012 REPAIR INTERMEDIATE WOUND, (NO HANDS OR FEET) 2.6 TO 7.5CM, UPPER EXTREMITY performed by SABRINA MEDRANO at [facility] OR ? ? PRO REPAIR INTERMEDIATE S/A/T/E > 30.0 CM Left 04/14/2018 REPAIR INTERMEDIATE WOUND, (NO HANDS OR FEET) >30.0CM, UPPER EXTREMITY (WRVU 5) performed by Yimi Easton MD at [facility] OR ??? PRO REVISE MEDIAN N/CARPAL TUNNEL SURG Left 04/06/2018 MEDIAN NERVE DECOMPRESSION (CARPAL TUNNEL RELEASE) (WRVU 4.97) performed by Lida Peter MD [facility] MAIN OR ? ? PRO SPLIT GRFT, HEAD, FAC, HAND, FEET <100SQCM N/A 02/20/2016 SPLIT THICKNESS SKIN SPLIT GRAFT,100SQ CM OR LESS, NECK performed by Miguel Angel Moreno MD at [facility] OR ??? PRO UPPER GI ENDOSCOPY, BIOPSY N/A 05/13/2017 EGD WITH BIOPSY (WRVU 2.49) performed by Aditya Barrera MD at [facility] ENDOSCOPY ??? PRO VASCULAR SURGERY PROCEDURE UNLIST Left 11/20/2015 LIGATION\REPAIR AV FISTULA performed by Camilo Ireland MD at [facility] MA[facility] OR ??? PRO VASCULAR SURGERY PROCEDURE UNLIST Left 11/20/2015 EXCISION VEIN FROM HAND performed by Camilo Ireland MD at [facility] MA[facility] OR ??? 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 [...] as pending/add-on, please make patient NPO at [place] on Wednesday. Attending: Plan discussed and agree [...] health management. Pt demonstrating increased ambulation w/ staffing associate and participating in functional ADL tasks. Pt will benefit from ongoing therapeutic interventions to achieve pt's and therapy goals. Please refer to associated flowsheet data listed below for treatment session details. Staff Recommendations: Encourage OOB activity and participation in all self care tasks Anticipated Discharge Disposition: (P) inpatient rehabilitation facility Pager: [phone] IRLANDA MUNOZ 04/22/2018 Occupational Therapy Rehabilitation Department [...] Level 0 Pain Goal 0 Transfer Assessment/Treatment [place] (Sit-Stand Transfers) supervision required [place] (Toilet Transfers) supervision required Assistive Device (Toilet Transfers) bracing Impairments (Transfers) strength decreased;balance impaired Comment (Transfers) assist for wound vac during toilet transfer; slightly impulsive Gait Assessment/Treatment [place] (Gait) supervision required Distance in Feet (Gait) 25 Impairments (Gait) balance impaired Comment (Gait) recliner <> bathroom ; witnessed pt ambulating unit w/ staffing associate ~300 Bathing Assessment/Training Comment (Bathing) pt had just completed bathing task prior to this writers arrival; pt reported assisting w/ shower cap and bathing ; Lower Body Dressing Assessment/Training Position (LB Dressing) sitting [place] Level (LB Dressing) verbal cues required;nonverbal cues [...] Eyes on Surveillance [continuous indirect monitoring]: Angelina, purposeful rounding CPG GOAL OUTCOME EVALUATION: Goal: Individualization [...] or Care? I am having surgery in [facility]. What Questions Do You Have About Your Health or Care? -- What Information Would Help Us Give You More Personalized Care? -- Individualization Patient Specific Goals -- Patient Specific Interventions -- Goal: Fall Prevention-Safe Patient Handling Outcome: Ongoing (Interventions Implemented as Appropriate) 04/20/18 0740 04/21/18 0800 04/21/18 1349 Daily Care Interventions Self-Care Promotion independence [...] Control Outcome: Ongoing (Interventions Implemented as Appropriate) 04/21/18799 Safety Interventions Isolation Precautions standard precautions maintained Infection Prevention rest/sleep promoted Coping Strategies Supportive Measures active listening utilized Goal: Discharge Needs Assessment Outcome: Ongoing (Interventions Implemented as Appropriate) 04/18/18354 Discharge Needs Assessment Concerns To Be [...] CPG). Outcome: Ongoing (Interventions Implemented as Appropriate) 04/21/18799 Seizure Disorder/Epilepsy Problems Assessed (Seizure Disorder/Epilepsy) all [...] fasciotomies. Precautions/Restrictions: fall, weight bearing Precautions Comments: KEISHA NWB; hx of TBI; wound vac Assessment: [...] Home with assist APURVA CASSIDY PTA Pager: [phone] Inpatient Physical Therapy Timed Up & Go (TUG) Average of two trials (seconds): 12.5 seconds Assistive device used: No Comments: Extra time required during turns to make sure pt didn't lose his balance, good gait speed, no LOB. Score correlates with being mostly independent Normal test = < 10 seconds > 13.5 seconds = fall risk Mine Biggs, Cheo PERES, Solomon Tsai. Balance in Elderly Patients:THe Get-up and Go Test. Arch Phys MedRehabil 1986; 67:387-389. FONG Balance Test Item Description Score (0-4) 1. Sitting to standing 4/4 2. Standing unsupported /4 3. Sitting unsupported /4 4. Standing to sitting /4 5. Transfers 10/13 6. Standing with eyes closed /4 7. Standing with feet together /4 8. Reaching forward with outstretched arm /4 9. Retrieving object from floor /4 10. Turning to look behind /4 11. Turning 360 degrees / 12. Placing alternate foot on stool /4 13. Standing with one foot in front 1/4 14. Standing on one foot /4 Total Score: 42/56 41-56 = low fall [...] Assessment/Treatment Assistive Device (Bed Mobility) bed rails Efmhxt-sl-Sqk [place] (Bed Mobility) conditional independence Comment (Bed Mobility) HOB flat, extra time required Shm-np-Bedrzs [place] (Bed Mobility) conditional independence Transfer Assessment/Treatment [place] (Sit-Stand Transfers) supervision required [place] (Stand-Sit Transfers) supervision required Yem-Bptdn-Gkb Assistive Device (Transfers) (no device) Maintain Weight Bearing Status (Transfers) cues to maintain weight bearing status Safety Issues (Transfers) balance decreased during turns Impairments (Transfers) balance impaired;strength decreased Comment (Transfers) Initial cues to not use L UE, impulsive, pt held wound vac with R UE Gait Assessment/Treatment [place] (Gait) supervision required Assistive Device (Gait) (no [...] to sit/sit to sidelying Bed Mobility Goal, [place] Level independent Bed Mobility Goal, Outcome Achieved goal ongoing Gait Training Goal Gait Training Goal, Date Established 04/11/18 Gait Training Goal, Time to Achieve 2 wks Gait Training Goal, [place] Level independent Gait Training Goal, Assist Device other (see comments) (LRD ) Gait Training Goal, Distance to Achieve 150 ft Gait Training Goal, Outcome goal ongoing Transfer Training Goal Transfer Training Goal, Date Established 04/11/18 Transfer Training Goal, Time to Achieve 2 wks Transfer Training Goal, Activity Type all transfers Transfer Train Goal, [place] Level independent Transfer Training Goal, Assist Device (LRD) Transfer Training Goal, Outcome goal ongoing Clinical Impression Therapy Frequency 2-4 times/wk Anticipated Discharge Disposition Home with assist * Plan of Care - Loraine Crocker RN - 04/21/2018 2:48 AM EDT [...] Ongoing (Interventions Implemented as Appropriate) 04/20/18 1115 04/20/182099 Coping/Psychosocial Plan Of Care Reviewed With -- [...] Discharge Disposition: (P) inpatient rehabilitation facility Pager: [phone] IRLANDA MUNOZ 04/20/2018 Occupational Therapy Rehabilitation Department 04/20/18 1115 Rehab Evaluation Document Type therapy note (daily note) Total Evaluation Minutes, Occupational Therapy 30 Patient Effort good Symptoms Noted During/After Treatment none General Information Patient Profile Review yes Patient/Family/Caregiver Comments/Observations I would like to put some pants on before I go. General Observations of Patient arrived to find pt sitting in recliner w/ LUE resting on pillows Pertinent History of Current Problem Christy Ambrose [...] Level 0 Pain Goal 0 Transfer Assessment/Treatment [place] (Sit-Stand Transfers) contact guard assist [place] (Stand-Sit Transfers) contact guard assist Olj-Asnfy-Hji Assistive Device (Transfers) gait belt Safety Issues (Transfers) balance decreased during turns Impairments (Transfers) balance impaired;strength decreased Comment (Transfers) slightly impulsive at times; cues for safety awareness Gait Assessment/Treatment [place] (Gait) verbal cues required;nonverbal cues required (demo/gesture);contact guard assist Assistive Device (Gait) gait belt Distance in Feet (Gait) 300' Safety Issues (Gait) balance decreased during turns;step length decreased Impairments (Gait) balance impaired;strength decreased Comment (Gait) pt required mulit modal cues for directions; slightly impulsive; Lower Body Dressing Assessment/Training Position (LB Dressing) sitting;standing [place] Level (LB Dressing) set up required;verbal cues [...] good balance Sitting Balance: Dynamic fair balance Nzr-qi-Fhmjv Balance fair balance Standing Balance: Static fair [...] change tomorrow. * Consult Note - Danielle Peoples DO - 04/20/2018 10:36 AM EDT INFECTIOUS DISEASE INITIAL CONSULT NOTE Reason for Consult: Antibiotic recommendations Consulting Service: Vascular Consulting Attending:Chase Olvera MD Admission Date:04/06/2018 History of Present Illness: 57 year-old gentleman with history of renal cell transplant on immunosuppression, with suspected DVT on coumadin who was transferred to [facility] for hemorrhagic shock with PEA arrest secondary to fistulableeding. He is a limited historian- history taken from chart- He had had some leaking from his LUEAVF site and was found by his mom in a pool of blood, pulseless. He was transfused 6 units of prbcsand transferred to [facility]. 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 Non-smoker (quit 2000). No [...] intact, moving all extremities Laboratory: Recent Labs 04/20/18 0548 04/19/1825 04/18/18525 WBC 7.3 5.5 6.4 HGB 7.8* 7.7* 8.0* HCT 23.7* 23.3* 24.6* PLATELET 302 274 305 Recent Labs 04/20/18 0548 04/19/18 0625 04/18/18525 NA 138 137 135 K 4.7 4.7 [...] Danielle Peoples DO Infectious Disease Fellow Pager [phone] Associated attestation - Katarzyna Guevara MD - [...] Outcome: Ongoing (Interventions Implemented as Appropriate) 04/18/18 132 Skin Integrity Impairment, Risk/Actual (Adult) Skin Integrity/Wound Healing making progress toward outcome Problem: Patient Care Overview Goal: Plan of Care Review Outcome: Ongoing (Interventions Implemented as Appropriate) 04/18/18 1322 04/19/182136 Coping/Psychosocial Plan Of Care Reviewed With -- [...] Junior MD - 04/19/2018 10:43 AM EDT [facility] Operative Note Patient Name: Christy Ambrose : [id number] MR#: [id number] Case Date: 04/19/2018 Surgeon: Surgeon(s) and Role: * Odalis Elias MD - Primary * hBargavi Junior MD Preoperative diagnosis: left distal AVF [...] Junior MD - 04/19/2018 10:25 AM EDT [facility] Operative Note Patient Name: Christy Ambrose : [id number] MR#: [id number] Case Date: 04/19/2018 Surgeon: Surgeon(s) and Role: [...] 04/18/2018 2:40 PM EDT OFFICE OF CARE MANAGEMENT/Dampproofer/PROGRESS NOTE e-DH reviewed. Report received from vascular [...] wound base. --Had AVF ultrasound today in [facility] lab to assess AVF --NPO [...] Control Outcome: Ongoing (Interventions Implemented as Appropriate) 04/18/18 08 Safety Interventions Isolation Precautions standard precautions maintained Infection Prevention barrier precautions utilized;environmental surveillance performed;rest/sleep promoted;single patient room provided Coping Strategies Supportive Measures active listening utilized;self-care encouraged Goal: Discharge Needs Assessment Outcome: Ongoing (Interventions Implemented as Appropriate) 04/18/18354 Discharge Needs Assessment Concerns To Be [...] Appropriate) 04/18/18354 Interdisciplinary Rounds/Family Conf Participants patient;nursing;physician * Plan [...] CPG). Outcome: Ongoing (Interventions Implemented as Appropriate) 04/18/18 0355 Seizure Disorder/Epilepsy Problems Assessed (Seizure Disorder/Epilepsy) all [...] Implemented as Appropriate) 04/08/18 1936 04/10/18 1602 04/17/18 0547 Mutuality/Individual Preferences What Anxieties, [...] Handling Outcome: Ongoing (Interventions Implemented as Appropriate) 04/17/18 0815 04/17/18 1628 Daily Care Interventions Self-Care Promotion independence [...] Control Outcome: Ongoing (Interventions Implemented as Appropriate) 04/17/18 0815 Safety Interventions Isolation Precautions standard precautions maintained [...] Ongoing (Interventions Implemented as Appropriate) 04/15/18 0850 04/15/18193204/15/18 2115 Daily Care Interventions Self-Care Promotion independence [...] active listening utilized Goal: Discharge Needs Assessment 04/08/18193504/10/18 1602 Discharge Needs Assessment Concerns To Be [...] Ongoing (Interventions Implemented as Appropriate) 04/08/18193504/10/18 1602 Mutuality/Individual Preferences What Anxieties, Fears or [...] Disorder/Epilepsy) none * Care Management - North Leong RN - 04/15/2018 12:36 PM EDT OFFICE OF CARE MANAGEMENT/Dampproofer/PROGRESS NOTE e-DH reviewed. Report received from vascular [...] Discharge Disposition: (P) inpatient rehabilitation facility Pager: [phone] IRLANDA MUNOZ 04/15/2018 Occupational Therapy Rehabilitation Department [...] PT Pertinent History of Current Problem Christy Ginna Ambrose is a 57 y.o. [...] 0 Pain Goal 0 Transfer Assessment/Treatment Bed-Chair [place] (Transfers) contact guard assist Nyf-Krvbs-Hea Assistive Device (Transfers) (IV pole for support ) [place] (Sit-Stand Transfers) set up required;verbal cues required;contact guard assist [place] (Stand-Sit Transfers) verbal cues required;contact guard assist Axb-Qxmrg-Eif Assistive Device (Transfers) (IV pole ) Safety Issues (Transfers) sequencing ability decreased;step length decreased;weight-shifting ability decreased Impairments (Transfers) balance impaired;strength decreased Comment (Transfers) cues for safe hand placement and task initation Gait Assessment/Treatment [place] (Gait) verbal cues required;contact guard assist Assistive [...] Body Dressing Assessment/Training Position (UB Dressing) sitting [place] Level (UB Dressing) contact guard assist Comment (UB Dressing) paco armstrong Grooming Assessment/Training Position (Grooming) sitting [place] Level (Grooming) set up required;verbal cues required;contact [...] please reconsult. Discussed plan with: /PRAVEENA/PA: Nilda iMnaya RN: Negrita Please contact Violetta Deng RN on pager [phone] or the wound care team at [phone] or pager [phone] with skin and wound care concerns or questions. * Plan of Care - Miguel Angel Pierce, YOUSIF - 04/15/2018 10:16 AM EDT Speech-Language Pathology [...] for specific details, POC and goals. Recommendations MINER PICK Diet Recommendation: regular solid, thin liquids Therapy Frequency: other (see comments) (D/C from speech intervention.) MIGUEL ANGEL PIERCE, YOUSIF Inpatient Speech Pathologist Pager: [phone] 04/15/18 1011 Rehab Evaluation Document Type therapy [...] Dysphagia Goal, Outcome goal met Clinical Impression MINER PICK Swallowing Diagnosis other (see comments) (Functionally appearing oropharyngeal swallow) Rehab Potential/Prognosis, Swallowing good, to achieve stated therapy goals Therapy Frequency other (see comments) (D/C from speech intervention.) MINER PICK Diet Recommendation regular solid;thin liquids * Plan [...] fasciotomies Precautions/Restrictions: fall, weight bearing Precautions Comments: KEISHA NWB; hx of TBI; wound vac Assessment: [...] Anticipated Discharge Disposition: inpatient rehabilitation facility APURVA CASSIDY PTA Pager: [phone] Inpatient Physical Therapy 04/15/18 0949 Rehab Evaluation Document Type therapy note (daily note) Total Evaluation Minutes, Physical Therapy 25 (TE-F x 2) Patient Effort excellent Symptoms Noted During/After Treatment fatigue General Information Patient/Family/Caregiver Comments/Observations I need to get moving more, and it will get better Pertinent History of Current Problem Christy [...] cook, clean independently. 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 pt usually ambulates w/o AD, but occasionally will walk w/ cane Pain Scale/Rating Pain Assessment Scale Word (verbal rating pain scale) Pain Level 0 Bed Mobility Assessment/Treatment Assistive Device (Bed Mobility) bed rails Qoihey-ql-Uql [place] (Bed Mobility) supervision required Comment (Bed Mobility) HOB elevated, extra time required Safety Issues (Bed Mobility) decreased use of arms for pushing/pulling Impairments (Bed Mobility) strength decreased Transfer Assessment/Treatment [place] (Sit-Stand Transfers) contact guard assist [place] (Stand-Sit Transfers) contact guard assist Wop-Cxazn-Lfe Assistive Device (Transfers) (IV pole) Safety Issues (Transfers) balance decreased during turns;step length decreased;loses balance backward Impairments (Transfers) balance impaired;strength decreased Comment (Transfers) Initially falling back onto bed with standing or marching in place, able to steady himself with the IV pole Gait Assessment/Treatment [place] (Gait) contact guard assist Assistive Device (Gait) [...] to sit/sit to sidelying Bed Mobility Goal, [place] Level independent Bed Mobility Goal, Outcome Achieved goal ongoing Gait Training Goal Gait Training Goal, Date Established 04/11/18 Gait Training Goal, Time to Achieve 2 wks Gait Training Goal, [place] Level independent Gait Training Goal, Assist Device other (see comments) (LRD ) Gait Training Goal, Distance to Achieve 150 ft Gait Training Goal, Outcome goal ongoing Transfer Training Goal Transfer Training Goal, Date Established 04/11/18 Transfer Training Goal, Time to Achieve 2 wks Transfer Training Goal, Activity Type all transfers Transfer Train Goal, [place] Level independent Transfer Training Goal, Assist Device [...] Outcome: Ongoing (Interventions Implemented as Appropriate) 04/15/18 050 Coping/Psychosocial Plan Of Care Reviewed With patient [...] Handling Outcome: Ongoing (Interventions Implemented as Appropriate) 04/14/18 0008 10/04/192104/15/18500 Catarino Fall Risk History of Falling -- -- 25 Secondary Diagnosis -- -- 15 Ambulatory Aids -- -- 15 Intravenous Therapy/Heparin/Saline Lock -- -- 20 Gait/Transferring -- -- 10 Mental Status -- -- 15 Score -- -- 100 OTHER Catarino Fall Risk -- -- High Restraint Interventions [...] Conf Outcome: Ongoing (Interventions Implemented as Appropriate) 04/15/18500 Interdisciplinary Rounds/Family Conf Participants nursing;patient;physician Problem: Seizure [...] Easton MD - 04/14/2018 8:19 AM EDT [facility] Operative Note Patient Name: Christy Ambrose : [id number] MR#: [id number] Case Date: 04/14/2018 Surgeon: Surgeon(s) and Role: [...] he was found down. [facility] with 2 tourniquets on since [...] Ongoing (Interventions Implemented as Appropriate) 04/13/18 0643 04/13/1875404/13/18 08 Daily Care Interventions Self-Care Promotion -- independence [...] Control Outcome: Ongoing (Interventions Implemented as Appropriate) 04/13/1875404/13/18799 Safety Interventions Isolation Precautions -- standard precautions [...] Transportation Available -- -- agency transportation The CM will arrange for DC, when medically ready. Goal: Interdisciplinary Rounds/Family Conf Outcome: Ongoing (Interventions Implemented as Appropriate) 04/12/186 Interdisciplinary Rounds/Family Conf Participants nursing;patient;physician Purposeful hourly rounding. * Care Management - North Leong RN - 04/13/2018 1:58 PM EDT Based on discussions with the multi-disciplinary healthcare team, the patient would benefit from rehab/snf level of care at discharge. ?? I have met with the patient/software sales representative to discuss discharge planning needs. I have provided the [facility], Office of Care Management letter from the [employer] pertaining to rehab referrals. I have also provided a letter describing our affiliations within the [facility] and educated them about their right to choose where referrals are placed. ?? I reviewed the different levels of rehab including SNF, swing, acute and LTAC with the patient/software sales representative. ?? The patient/software sales representative has been provided a list of facilities within their preferred geographic area. ?? I have requested that the patient/software sales representative provide at least three choices for referral. ?? The patient/software sales representative have requested referrals to: ?? 1. [facility]. ?? 2. [facility] ?? 3. ?? Expected date of discharge: next 24- 48 hours Note routed to Resourcing Advisor who will communicate referrals to facilities and provide any required information. * Plan of Care - Domi Rodriguez RN - 04/12/2018 7:01 PM EDT Problem: Patient Care Overview Goal: Plan of Care Review Outcome: Ongoing (Interventions Implemented as Appropriate) 04/12/1843504/12/18 0744 Coping/Psychosocial Plan Of Care Reviewed With [...] Stated by Patient: I don't remember,,Christy Ginna Ambrose is a 57 y.o. male w hx of IgA nephropathy s/p donor renal transplant 2002 (on tacrolimus and cellcept) complicated by delayed graft function and recurrent IgA nephropathy and Prograf toxicity, laparoscopic L radical nephrectomy May 2017 for papillary carcinoma, HTN, epilepsy, and prior TBI who presents to [facility] s/p LUE bleeding with PEA arrest. Description [...] Pt intubated in field. Pt taken to [facility], where second tourniquet applied and pt received 6U PRBC. Transferred to [facility]. Per H and P Dr. Burkett. Past Medical History: Diagnosis Date ??? BP (high blood pressure) ??? DVT (deep venous thrombosis) ??? Gout ??? Hypertension ??? Kidney problem ??? Pneumonia ??? TBI (traumatic brain injury) 1980 Hospitalizations Within the Past 30 Days: [facility] Anticipated Length Of Stay (If known): Expected Length of Hospitalization: 5-7 days Current Decision-Making Capacity: Alert but confused. Awakes when I speak but confused when answering. Advance Care Planning: Adv. Directives are from 2010, pt's POA is brother Lucas Ambrose who resides in [facility], pat's 86 year old mother Ilda [...] Insurance: N/A Prescription Coverage: yes Preferred Pharmacy: [facility] in [place], [place]. Primary Care Provider: Carroll Garcia DO [phone] Patient/Caregiver Goals of Treatment: to go to [...] longer needed); will follow up with Transplant Nephrology/[facility] today Plan: to go to acute rehab at discharge. A member of the Care Management team will continue to monitor progress, follow for continuity of care and assist with transition of care planning. North Leong RN Pager: [phone] * Care Management - North Leong RN - 04/12/2018 2:33 PM EDT Based on discussions with the multi-disciplinary healthcare team, the patient would benefit from acute inpatient rehab. level of care at discharge. ?? I have met with the patient/software sales representative to discuss discharge planning needs. I have provided the [facility], Office of Care Management letter from the [employer] pertaining to rehab referrals. I have also provided a letter describing our affiliations within the [facility] and educated them about their right to choose where referrals are placed. ?? I reviewed the different levels of rehab including SNF, swing, acute and LTAC with the patient/software sales representative. ?? The patient/software sales representative has been provided a list of facilities within their preferred geographic area. ?? I have requested that the patient/software sales representative provide at least three choices for referral. ?? The patient/software sales representative have requested referrals to: ?? 1. [facility] [place], [place] ?? 2. [facility] ?? 3. [facility]. ?? Expected date of discharge: next 24-72 hours Note routed to Resourcing Advisor who will communicate referrals to facilities and provide any required information. * Consult Note - Ashlie Willis RPH - 04/12/2018 10:24 AM EDT Clinical Pharmacist Note - Renal Dose Adjustment for Antimicrobials Christy Ambrose (A# [id number]) is being treated with the following antimicrobial [...] Outcome: Ongoing (Interventions Implemented as Appropriate) 04/08/18193504/10/18 160 Mutuality/Individual Preferences What Anxieties, Fears or Concerns [...] Ongoing (Interventions Implemented as Appropriate) 04/08/18193504/10/18 1602 Discharge Needs Assessment Concerns To Be [...] none * Plan of Care - Rafaela Alonzo, OT - 04/11/2018 1:22 PM EDT Occupational [...] Anticipated Discharge Disposition: inpatient rehabilitation facility Pager: [phone] RAFAELA ALONZO OT 04/11/2018 Occupational Therapy Rehabilitation Department 04/11/18 1056 Rehab Evaluation Document Type evaluation Total Evaluation [...] Comment Patient lives with his mother at [facility]. Ramp to enter, then elevator to 5th floor. Once inside, single floor. Tub shower, no chair. Regular bed Functional Level Prior Prior Functional Level Comment Reports independence with all ADL/IADL tasks. Drives. Works at the [employer]. Only ambulates with a cane on the [...] Assessment/Treatment Assistive Device (Bed Mobility) bed rails Bbluqh-qq-Aam [place] (Bed Mobility) minimum assist (75% patient effort) Comment (Bed Mobility) HOB elevated Transfer Assessment/Treatment [place] (Sit-Stand Transfers) moderate assist (50% patient effort);2 person assist required;verbal cues required [place] (Stand-Sit Transfers) moderate assist (50% patient effort);2 person assist required;verbal cues required Ahs-Xtvup-Huk Assistive Device (Transfers) (Initally stood w/o any AD. Poor balance ) Gait Assessment/Treatment [place] (Gait) moderate assist (50% patient effort);2 person [...] Body Dressing Assessment/Training Position (UB Dressing) sitting [place] Level (UB Dressing) minimum assist (75% patient effort) Lower Body Dressing Assessment/Training Position (LB Dressing) sitting [place] Level (LB Dressing) minimum assist (75% patient [...] Handling Outcome: Ongoing (Interventions Implemented as Appropriate) 04/10/18 0828 04/10/18 1248 04/10/18 1602 Daily Care Interventions [...] Control Outcome: Ongoing (Interventions Implemented as Appropriate) 04/10/18 0828 Safety Interventions Isolation Precautions standard precautions maintained [...] note were not included. Infiltration/Extravasation Scale Christy Ambrose [id number] IC18/IC18-A Infiltration appearance: Infiltration harm % for [...] to comfort. MD at the Pt's bedside. CREPING MACHINE OPERATOR CARING FOR THIS PATIENT WILL CONTINUE TO [...] mass index is 28.91 kg/(m^2). Current bed: [facility] Assessment: Pt with no sacral pressure injury [...] chair to 2 hour intervals. Use a Need chair cushion beneath patient at all times while in the chair. Reinforce teaching to shift weight every 15 minutes while in the chair. Following hospital standard for pressure ulcer prevention and skin care. Refer to adult/pediatric pressure ulcer prevention job aid in the clinical policy library. Wound care will follow weekly. Discussed plan with: RN: Evla Please contact MEAGHAN HOOD RN on pager [phone] or the wound care team at [phone] or pager [phone] with skin and wound care concerns or questions. * Plan of Care - Miguel Angel Pierce, YOUSIF - 04/08/2018 8:59 AM EDT Speech-Language Pathology [...] Therapy Frequency: 2-3 times/wk MIGUEL ANGEL PIERCE, MIN[facility] Inpatient Speech Pathologist Pager: [phone] 04/08/18 [id number] Rehab Evaluation Document Type evaluation Total Evaluation [...] patient (RN) Speech Language Pathology Goal Types [facility] Goal Types Dysphagia Goal (Group) Dysphagia Goal Dysphagia Goal, Date Established 04/08/18 Dysphagia Goal, Time to Achieve by discharge Oral Nutritional Level Goal safely tolerates/maintains adequate oral nutrition;no signs/symptoms ofaspiration present Clinical Impression [facility] Swallowing Diagnosis oral dysfunction;other (see comments) (Functionally appearing pharyngeal dysphagia. ) Rehab Potential/Prognosis, Swallowing good, to achieve stated therapy goals Therapy Frequency 2-3 times/wk [facility] Diet Recommendation puree;thin liquids * Plan of [...] of : 1960 PCP: Carroll Garcia DO Onset of symptoms (if witnessed) or [...] dose epi. Intubated in field. Arrived at [facility] ED intubated. Received 6 units pRBC. Transferred to [facility] and went to OR with vascular for [...] by Miguel Angel Moreno MD at [facility] MA[facility] OR ??? PRO DECOMPRESS FOREARM, BRACH ART EXPLOR Left 04/06/2018 FASCIOTOMY, FOREARM, WITH BRACHIAL ARTERY EXPLORATION (WRVU 8.41) performed by Lida Peter MDat [facility] OR ??? PRO DIRECT REPAIR RUPTURED ANEURYSM, AXILLO-BRACHIAL ARM INCIS Left 04/06/2018 @REPAIR, RUPTURED AXILLARY OR BRACHIAL ARTERY ANEURYSM BY ARM INCISION (WRVU *) performed by Lida Peter MD at [facility] OR ??? PRO EXC PAROTD, TOTAL, UNILAT RAD NECK Left 02/05/2016 @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, TOTAL, WITH UNILATERAL RADICAL NECK DISSECTION performed by Miguel Angel Moreno MD at [facility] OR ??? PRO EXC SKIN MALIG 3.1-4CM FACE, FACIAL Left 02/05/2016 EXC MALIGNANT LESION, 3.1 TO 4.0CM, FACE performed by Miguel Angel Moreno MD at [facility] OR ? ? PRO EXC SKIN MALIG >4CM TRUNK, ARM, LEG 04/19/2012 EXC MALIGNANT LESION, MICHAEL > 4.0CM, TRUNK performed by SABRINA MEDRANO at [facility] OR ??? PRO LAP, RADICAL NEPHRECTOMY Left 05/31/2017 @LAPAROSCOPY, RADICAL NEPHRECTOMY (WRVU 25.06) performed by Jax Mills MD at [facility] OR ??? PRO REBL VES GRAFT, UP EXTREM Left 04/06/2018 REPAIR BLOOD VESSEL WITH GRAFT OTHER THAN VEIN, UPPER EXTREMITY (WRVU 15.83) performed by Lida Peter MD at [facility] OR ??? PRO RELIEVE PRESSURE ON NERVE(S) Left 04/06/2018 (MSURG) CARPAL TUNNEL (WRVU 4.82) performed by Hay Sparks MD at [facility] OR ??? PRO REPAIR INTERMEDIATE S/A/T/E 2.6-7.5 CM 04/19/2012 REPAIR INTERMEDIATE WOUND, (NO HANDS OR FEET) 2.6 TO 7.5CM, UPPER EXTREMITY performed by SABRINA MEDRANO at [facility] OR ??? PRO REVISE MEDIAN N/CARPAL TUNNEL SURG Left 04/06/2018 MEDIAN NERVE DECOMPRESSION (CARPAL TUNNEL RELEASE) (WRVU 4.97) performed by Lida Peter MD [facility] OR ? ? PRO SPLIT GRFT, HEAD, FAC, HAND, FEET <100SQCM N/A 02/20/2016 SPLIT THICKNESS SKIN SPLIT GRAFT,100SQ CM OR LESS, NECK performed by Miguel Angel Moreno MD at [facility] OR ??? PRO UPPER GI ENDOSCOPY, BIOPSY N/A 05/13/2017 EGD WITH BIOPSY (WRVU 2.49) performed by Aditya Barrera MD at [facility] ENDOSCOPY ??? PRO VASCULAR SURGERY PROCEDURE UNLIST Left 11/20/2015 LIGATION\REPAIR AV FISTULA performed by Camilo Ireland MD at [facility] OR ??? PRO VASCULAR SURGERY PROCEDURE UNLIST Left 11/20/2015 EXCISION VEIN FROM HAND performed by Camilo Ireland MD at [facility] OR ??? 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 [...] extension 5/5 R, Elbow flexion 5/5 R Bacon Skin Lifter LE: 5/5 R, 5/5 L Hip flexion [...] 04/07/2018 Neurology resident, PGY-3 Vascular Neurology Pager [phone] Standard [facility] Swallow Screen: This screen is to be [...] diet as medical provider deems appropriate. Consider [facility] consult for full evaluation and diet recommendations. 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 Apparently patient was found at his home unresponsive and was pulseless requiring several rounds of chest compressions,epinephrine and IV fluid bolus with a return of spontaneous circulation.Intubated in the field and taken to [facility] received 6 units of the PRBCs,2 FFPs for hemoglobin of 4 and required 2 tourniquets for his AV fistula leaking. Transferred to [facility] and was taken to OR by vascular [...] by Miguel Angel Moreno MD at [facility] OR ??? PRO EXC PAROTD, TOTAL, UNILAT RAD NECK Left 02/05/2016 @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, TOTAL, WITH UNILATERAL RADICAL NECK DISSECTION performed by Miguel Angel Moreno MD at [facility] OR ??? PRO EXC SKIN MALIG 3.1-4CM FACE, FACIAL Left 02/05/2016 EXC MALIGNANT LESION, 3.1 TO 4.0CM, FACE performed by Miguel Angel Moreno MD at [facility] OR ? ? PRO EXC SKIN MALIG >4CM TRUNK, ARM, LEG 04/19/2012 EXC MALIGNANT LESION, MICHAEL > 4.0CM, TRUNK performed by SABRINA MEDRANO at [facility] OR ??? PRO LAP, RADICAL NEPHRECTOMY Left 05/31/2017 @LAPAROSCOPY, RADICAL NEPHRECTOMY (WRVU 25.06) performed by Jax Mills MD at [facility] OR ??? PRO REPAIR INTERMEDIATE S/A/T/E 2.6-7.5 CM 04/19/2012 REPAIR INTERMEDIATE WOUND, (NO HANDS OR FEET) 2.6 TO 7.5CM, UPPER EXTREMITY performed by SABRINA MEDRANO at [facility] OR ? ? PRO SPLIT GRFT, HEAD, FAC, HAND, FEET <100SQCM N/A 02/20/2016 SPLIT THICKNESS SKIN SPLIT GRAFT,100SQ CM OR LESS, NECK performed by Miguel Angel Moreno MD at [facility] OR ??? PRO UPPER GI ENDOSCOPY, BIOPSY N/A 05/13/2017 EGD WITH BIOPSY (WRVU 2.49) performed by Aditya Barrrea MD at [facility] ENDOSCOPY ??? PRO VASCULAR SURGERY PROCEDURE UNLIST Left 11/20/2015 LIGATION\REPAIR AV FISTULA performed by Camilo Ireland MD at [facility] OR ??? PRO VASCULAR SURGERY PROCEDURE UNLIST Left 11/20/2015 EXCISION VEIN FROM HAND performed by Camilo Ireland MD at [facility] OR ??? US RENAL TRANSPLANT [...] Latest Ref Range: Clear Hazy (A) Spec [place] UA Latest Ref Range: 1.002 - 1.030 [...] lymph nodes submitted or found IMPRESSION/ RECOMMENDATIONS: Christy Delunaon is a 57 y/o M with [...] w/ Dr.Chobanian Radha Hughes MD Nephrology Fellow #[id number] * Op Note - Bhargavi Junior MD - 04/07/2018 7:56 AM EDT [facility] Operative Note Patient Name: Christy Ambrose : [id number] MR#: [id number] Case Date: 04/06/2018 Surgeon: Surgeon(s) and Role: [...] he was found down. He presented to [facility] in hemorrhagic shock with 2 tourniquets on [...] Implant Name Type Inv. Item Serial No. Hydroponics Worker Lot No. LRB No. Used Action PATCH,BIOL,XENOSURE,.8X8CM ([id number]) - [id number] IMPLANTS PATCH,BIOL,XENOSURE,.8X8CM ([id number]) 0 [facility] [id number] Implanted Infection Bundle used? No, ancef [...] Operative Note Patient Name: Christy Ambrose : [id number] MR#: [id number] Case Date: 04/06/2018 Surgeon: Surgeon(s) and Role: Panel 1: * Lida Peter MD - Primary * Bhargavi Junior MD - Fellow * Kurt Mullins MD - *ASSISTING SURGEON * Crystal Starr MD - Fellow Panel 2: * Hay Saprks MD - Primary Preoperative diagnosis: bleeding AVF [...] Sparks MD - 04/06/2018 4:00 PM EDT [facility] Operative Note Patient Name: Christy Ambrose : [id number] MR#: [id number] Case Date: 04/06/2018 Surgeon: Surgeon(s) and Role: [...] 04/26/2018 11:42 AM EDT TYPE AND SCREEN ([facility]) STAT 04/26/2018 11:42 AM EDT MODIFIER WOUND [...] UPPER EXTREMITY Routine 04/19/2018 7:40 AM EDT HEMOGRAM Routine 04/19/2018 6:25 AM EDT DIFFERENTIAL, [...] 04/17/2018 9:07 AM EDT TYPE AND SCREEN ([facility]) STAT 04/17/2018 9:07 AM EDT HEMOGRAM Routine [...] METABOLIC PANEL Routine 04/15/2018 4:47 AM EDT HEMOGRAM Routine 04/14/2018 5:48 AM EDT DIFFERENTIAL, [...] Routine 04/07/2018 5:56 AM EDT CARDIAC ENZYMES ([facility]) Routine 04/07/2018 5:55 AM EDT HEMOGLOBIN AND [...] PM EDT BLOOD GAS ARTERIAL POC Routine 8 5:24 PM EDT POCT GLUCOSE Routine 04/06/2018 5:10 PM EDT MEDIAN NERVE DECOMPRESSION (CARPAL TUNNEL RELEASE) Routine 04/06/2018 5:03 PM EDT REPAIR BLOOD VESSEL WITH GRAFT OTHER THAN VEIN, UPPER EXTREMITY Routine 04/06/2018 5:03 PM EDT FASCIOTOMY,FOREARM,W\B RACHIAL ARTERY EXPLORATION-ORTHO Routine 04/06/2018 4:25 PM EDT BLOOD GAS ARTERIAL POC Routine 8 4:04 PM EDT (MSURG) CARPAL TUNNEL Routine 04/06/2018 4:03 PM EDT SCAN, PERIPHERAL BLOOD STAT 8 3:53 PM EDT HEMOGRAM STAT 04/06/2018 3:53 PM EDT DIFFERENTIAL, AUTOMATED STAT 04/06/2018 3:53 PM EDT APTT STAT 04/06/2018 3:53 PM EDT PROTHROMBIN TIME STAT 04/06/2018 3:53 PM EDT CBC (WITH DIFF) STAT 04/06/2018 3:53 PM EDT BLOOD GAS ARTERIAL POC Routine 8 3:41 PM EDT BLOOD GAS ARTERIAL POC Routine 8 3:13 PM EDT BLOOD GAS ARTERIAL POC Routine 8 2:48 PM EDT BLOOD GAS ARTERIAL POC Routine 8 2:46 PM EDT BLOOD GAS ARTERIAL POC Routine 8 2:16 PM EDT ANAEROBIC CULTURE Routine 04/06/2018 2:1 5 PM EDT BODY FLUID CULTURE, AEROBIC & ANAEROBIC Routine 04/06/2018 2:15 PM EDT BODY FLUID CULTURE, AEROBIC Routine 04/06/2018 2:15 PM EDT BLOOD GAS ARTERIAL POC Routine 8 1:53 PM EDT REQUEST FOR 2ND READ CT HEAD AND SPINE STAT 04/06/2018 1:41 PM EDT URINALYSIS MICROSCOPIC EXAM STAT 04/06/2018 1:25 PM [...] 1:15 PM EDT SCAN, PERIPHERAL BLOOD STAT 8 1:15 PM EDT HEMOGRAM STAT 04/06/2018 1:15 [...] PM EDT BLOOD GAS ARTERIAL POC Routine 8 1:14 PM EDT PREPARE RBC STAT 04/06/2018 1:05 PM EDT FILM LIBRARY STORAGE ONLY CT CHEST ABDOMEN PELVIS Routine 04/06/2018 12:05 AM EDT LAB SCAN 04/06/2018 12:00 AM EDT IMPLANTABLE DEVICES SCAN 04/06/2018 12:00 AM EDT BEEF BREAKER SCAN 04/06/2018 12:00 AM EDT FILM LIBRARY STORAGE ONLY CT HEAD AND SPINE STAT 04/06/2018 12:00 AM EDT documented in this encounter Results * (ABNORMAL) Basic Metabolic Panel (non-fasting) (05/04/2018 3:00 AM EDT) Glucose 100 65 - 199 mg/dL [facility] Comment:Diabetes: >=200 mg/d L plus symptoms Blood Urea Nitrogen 40(H) 10 - 20 mg/dL [facility] Creatinine 3.05(H) 0.80 - 1.50 mg/dL [facility] Sodium 131(L) 135 - 145 mmol/L [facility] Potassium 4.1 3.5 - 5.0 mmol/L [facility] Comment: Please note: ??Patients with WBC >100,000 may have falsely elevated Potassium levels. ??For accurate Potassium quantification in these patients send serum separator tube (gold top) for subsequent determinations. ??Contact the Clinical Chemistry Laboratory if there are any questions. Chloride 99 98 - 107 mmol/L [facility] Carbon Dioxide 19(L) 22 - 31 mmol/L [facility] Anion Gap 13 5 - 15 mmol/L [facility] Calcium 8.0(L) 8.5 - 10.5 mg/dL [facility] Est Glomerular Filtration Rate 22(L) >=60 mL/min/1. 73 m?? [facility] Comment: The eGFR was calculated using the CKD-EPI equation. As with all creatinine based estimates of kidney function, eGFR values calculated with the CKD-EPI equation are not accurate in patients with acute kidney failure, extremes of body mass or the acutely ill. http://[employer]/[facility] eGFR 25(L) >=60 mL/min/1. 73 m?? [facility] Comment: The eGFR was calculated using the CKD-EPI equation. As with all creatinine based estimates of kidney function, eGFR values calculated with the CKD-EPI equation are not accurate in patients with acute kidney failure, extremes of body mass or the acutely ill. http://[employer]/[facility] Blood specimen (specimen) 05/04/2018 3:00 AM EDT 05/04/2018 3:08 AM EDT Narrative Resulting Agency Comment Spec In Lab Hay Sparks MD CHEMISTRY ORDERABLES Performing Organization Address [facility] Co de Phone Number [facility] [place] [address] * Vancomycin, trough (05/03/2018 6:40 PM EDT) Vancomycin, Trough 14.2 mg/L [facility] Comment: Therapeutic range for [...] Sparks MD CHEMISTRY ORDERABLES Performing Organization Address [facility] Co de Phone Number [facility] [place] [address] * Differential, Automated (05/03/2018 3:06 AM EDT) Neutrophil % 60.8 % [facility] Neutrophil Absolute 3.01 1.70 - 6.10 x10(3)/[facility] Lymph % 19.8 % [facility] Lymphocytes Abs 1.0 0.9 - 3.2 x10(3)/[facility] Monocyte % 10.7 % [facility] Monocyte Abs 0.5 0.3 - 0.9 x10(3)/[facility] Eos % 8.1 % [facility] Eosinophils Abs 0.4 0.0 - 0.4 x10(3)/[facility] Basophil % 0.4 % [facility] Baso Absolute 0.0 0.0 - 0.1 x10(3)/[facility]ORATORY Immature Gran % 0.20 % [facility] Comment: Immature granulocytes(IG's)percentage and absolute count will include metamyelocytes, myelocytes, and promyelocytes. Blood smears from CBCs yielding IG's will be scanned manually for concordance. If this scan disagrees with the automated IG or if promyelocytes are noted, a manual differential will be performed. Immature Gran Absolute 0.01 0.00 - 0.04 x10(3)/[facility]ORY Blood specimen (specimen) 05/03/2018 3:06 AM EDT 05/03/2018 3:16 AM EDT Narrative Resulting Agency Comment Spec In Lab Apple Gutierrez MD HEMATOLOGY ORDERABLE S [facility] [place] [address] * (ABNORMAL) Hemogram (05/03/2018 3:06 AM EDT) White Blood Cell 5.0 4.0 - 9.5 x10(3)/ L [facility] Red Blood Cell 2.64(L) 4.58 - 5.54 x10(6)/ L [facility] Hemoglobin 8.2(L) 13.7 - 16.5 gm/dL [facility] Hematocrit 25.1(L) 40.5 - 48.5 % [facility] Mean Cell Volume 95.1(H) 82.9 - 93.1 fL [facility] Mean Cell Hemoglobin 31.1 27.5 - 32.1 pg [facility] Mean Cell Hemoglobin Concentration 32.7 32.0 - 35.7 gm/dL [facility] Platelet 160 145 - 357 x10(3)/ L [facility] RDW Standard Deviation 54.3(H) 36.0 - 45.0 fL [facility] RDW coefficient of variation 15.6(H) 11.4 - 13.8 % [facility] Mean Platelet Volume 9.0 7.6 - 12.9 fL [facility] NRBC% auto 0.0 % [facility] NRBC Absolute 0.000 0.000 - 0.000 x10(3)/mc L [facility] Blood specimen (specimen) 05/03/2018 3:06 AM EDT 05/03/2018 3:16 AM EDT Narrative Resulting Agency Comment Spec In Lab Apple Gutierrez MD HEMATOLOGY ORDERABLE S [facility] [place] [address] * (ABNORMAL) Basic Metabolic Panel (non-fasting) (05/03/2018 3:06 AM EDT) Glucose 99 65 - 199 mg/dL [facility] Comment:Diabetes: >=200 mg/d L plus symptoms Blood Urea Nitrogen 35(H) 10 - 20 mg/dL [facility] Creatinine 2.58(H) 0.80 - 1.50 mg/dL [facility] Sodium 135 135 - 145 mmol/L [facility] Potassium 4.2 3.5 - 5.0 mmol/L [facility] Comment: Please note: ??Patients with WBC >100,000 may have falsely elevated Potassium levels. ??For accurate Potassium quantification in these patients send serum separator tube (gold top) for subsequent determinations. ??Contact the Clinical Chemistry Laboratory if there are any questions. Chloride 101 98 - 107 mmol/L [facility] Carbon Dioxide 20(L) 22 - 31 mmol/L [facility] Anion Gap 14 5 - 15 mmol/L [facility] Calcium 7.9(L) 8.5 - 10.5 mg/dL [facility] Est Glomerular Filtration Rate 27(L) >=60 mL/min/1. 73 m?? [facility] Comment: The eGFR was calculated using the CKD-EPI equation. As with all creatinine based estimates of kidney function, eGFR values calculated with the CKD-EPI equation are not accurate in patients with acute kidney failure, extremes of body mass or the acutely ill. http://[employer]/[facility] eGFR 31(L) >=60 mL/min/1. 73 m?? [facility] Comment: The eGFR was calculated using the CKD-EPI equation. As with all creatinine based estimates of kidney function, eGFR values calculated with the CKD-EPI equation are not accurate in patients with acute kidney failure, extremes of body mass or the acutely ill. http://[employer]/[facility] Blood specimen (specimen) 05/03/2018 3:06 AM EDT 05/03/2018 3:16 AM EDT Narrative Resulting Agency Comment Spec In Lab Hay Sparks MD CHEMISTRY ORDERABLES Performing Organization Address City/State/[facility] Co de Phone Number [facility] [place] [address] * Differential, Automated (05/02/2018 3:20 AM EDT) Neutrophil % 60.2 % [facility] Neutrophil Absolute 2.89 1.70 - 6.10 x10(3)/[facility] LAB[facility] Lymph % 20.8 % [facility] Lymphocytes Abs 1.0 0.9 - 3.2 x10(3)/[facility] Monocyte % 9.2 % [facility] Monocyte Abs 0.4 0.3 - 0.9 x10(3)/[facility] Eos % 8.8 % [facility] Eosinophils Abs 0.4 0.0 - 0.4 x10(3)/[facility] Basophil % 0.6 % [facility] Baso Absolute 0.0 0.0 - 0.1 x10(3)/[facility] Immature Gran % 0.40 % [facility] Comment: Immature granulocytes(IG's)percentage and absolute count will include metamyelocytes, myelocytes, and promyelocytes. Blood smears from CBCs yielding IG's will be scanned manually for concordance. If this scan disagrees with the automated IG or if promyelocytes are noted, a manual differential will be performed. Immature Gran Absolute 0.02 0.00 - 0.04 x10(3)/mcL [facility] Blood specimen (specimen) 05/02/2018 3:20 AM EDT 05/02/2018 3:26 AM EDT Narrative Resulting Agency Comment Spec In Lab Apple Gutierrez MD HEMATOLOGY ORDERABLE S [facility] [place] [address] * (ABNORMAL) Hemogram (05/02/2018 3:20 AM EDT) White Blood Cell 4.8 4.0 - 9.5 x10(3)/mc L [facility] Red Blood Cell 2.61(L) 4.58 - 5.54 x10(6)/mc L [facility] Hemoglobin 8.2(L) 13.7 - 16.5 gm/dL [facility] Hematocrit 24.6(L) 40.5 - 48.5 % [facility] Mean Cell Volume 94.3(H) 82.9 - 93.1 fL [facility] Mean Cell Hemoglobin 31.4 27.5 - 32.1 pg [facility] Mean Cell Hemoglobin Concentration 33.3 32.0 - 35.7 gm/dL [facility] Platelet 168 145 - 357 x10(3)/mc L [facility] RDW Standard Deviation 54.4(H) 36.0 - 45.0 fL [facility] RDW coefficient of variation 15.5(H) 11.4 - 13.8 % [facility] Mean Platelet Volume 8.7 7.6 - 12.9 fL [facility] NRBC% auto 0.0 % [facility] NRBC Absolute 0.000 0.000 - 0.000 x10(3)/mc L [facility] Blood specimen (specimen) 05/02/2018 3:20 AM EDT 05/02/2018 3:26 AM EDT Narrative Resulting Agency Comment Spec In Lab Apple Gutierrez MD HEMATOLOGY ORDERABLE S [facility] [place] [address] * (ABNORMAL) Basic Metabolic Panel (non-fasting) (05/02/2018 3:20 AM EDT) Glucose 94 65 - 199 mg/dL [facility] Comment:Diabetes: >=200 mg/d L plus symptoms Blood Urea Nitrogen 38(H) 10 - 20 mg/dL [facility] Creatinine 2.73(H) 0.80 - 1.50 mg/dL [facility] Sodium 135 135 - 145 mmol/L [facility] Potassium 4.3 3.5 - 5.0 mmol/L [facility] Comment: Please note: ??Patients with WBC >100,000 may have falsely elevated Potassium levels. ??For accurate Potassium quantification in these patients send serum separator tube (gold top) for subsequent determinations. ??Contact the Clinical Chemistry Laboratory if there are any questions. Chloride 103 98 - 107 mmol/L [facility] Carbon Dioxide 19(L) 22 - 31 mmol/L [facility] Anion Gap 13 5 - 15 mmol/L [facility] Calcium 7.7(L) 8.5 - 10.5 mg/dL [facility] Est Glomerular Filtration Rate 25(L) >=60 mL/min/1. 73 m?? [facility] Comment: The eGFR was calculated using the CKD-EPI equation. As with all creatinine based estimates of kidney function, eGFR values calculated with the CKD-EPI equation are not accurate in patients with acute kidney failure, extremes of body mass or the acutely ill. http://[employer]/[facility] eGFR 29(L) >=60 mL/min/1. 73 m?? [facility] Comment: The eGFR was calculated using the CKD-EPI equation. As with all creatinine based estimates of kidney function, eGFR values calculated with the CKD-EPI equation are not accurate in patients with acute kidney failure, extremes of body mass or the acutely ill. http://[employer]/[facility] Blood specimen (specimen) 05/02/2018 3:20 AM EDT 05/02/2018 3:25 AM EDT Narrative Resulting Agency Comment Spec In Lab Hay Sparks MD CHEMISTRY ORDERABLES [facility] [place] [address] * Differential, Automated (05/01/2018 4:00 AM EDT) Neutrophil % 60.0 % [facility] Neutrophil Absolute 2.98 1.70 - 6.10 x10(3)/[facility] Lymph % 21.2 % [facility] Lymphocytes Abs 1.0 0.9 - 3.2 x10(3)/[facility] Monocyte % 9.7 % [facility] Monocyte Abs 0.5 0.3 - 0.9 x10(3)/[facility] Eos % 8.1 % [facility] Eosinophils Abs 0.4 0.0 - 0.4 x10(3)/[facility] Basophil % 0.8 % [facility] Baso Absolute 0.0 0.0 - 0.1 x10(3)/[facility] Immature Gran % 0.20 % [facility] Comment: Immature granulocytes(IG's)percentage and absolute count will include metamyelocytes, myelocytes, and promyelocytes. Blood smears from CBCs yielding IG's will be scanned manually for concordance. If this scan disagrees with the automated IG or if promyelocytes are noted, a manual differential will be performed. Immature Gran Absolute 0.01 0.00 - 0.04 x10(3)/mcL [facility] Blood specimen (specimen) 05/01/2018 4:00 AM EDT 05/01/2018 4:13 AM EDT Narrative Resulting Agency Comment Spec In Lab Apple Gutierrez MD HEMATOLOGY ORDERABLE S [facility] [place] [address] * (ABNORMAL) Hemogram (05/01/2018 4:00 AM EDT) White Blood Cell 5.0 4.0 - 9.5 x10(3)/mc L [facility] Red Blood Cell 2.71(L) 4.58 - 5.54 x10(6)/mc L [facility] Hemoglobin 8.2(L) 13.7 - 16.5 gm/dL [facility] Hematocrit 25.6(L) 40.5 - 48.5 % [facility] Mean Cell Volume 94.5(H) 82.9 - 93.1 [facility] Mean Cell Hemoglobin 30.3 27.5 - 32.1 pg [facility] Mean Cell Hemoglobin Concentration 32.0 32.0 - 35.7 gm/dL [facility] Platelet 192 145 - 357 x10(3)/mc L [facility] RDW Standard Deviation 53.5(H) 36.0 - 45.0 [facility] RDW coefficient of variation 15.5(H) 11.4 - 13.8 % [facility] Mean Platelet Volume 8.9 7.6 - 12.9 [facility] NRBC% auto 0.0 % [facility] NRBC Absolute 0.000 0.000 - 0.000 x10(3)/mc L [facility] Blood specimen (specimen) 05/01/2018 4:00 AM EDT 05/01/2018 4:13 AM EDT Narrative Resulting Agency Comment Spec In Lab Apple Gutierrez MD HEMATOLOGY ORDERABLE S [facility] [place] [address] * (ABNORMAL) Basic Metabolic Panel (non-fasting) (05/01/2018 4:00 AM EDT) Glucose 101 65 - 199 mg/dL [facility] Comment:Diabetes: >=200 mg/d L plus symptoms Blood Urea Nitrogen 36(H) 10 - 20 mg/dL [facility] Creatinine 2.66(H) 0.80 - 1.50 mg/dL [facility] Sodium 134(L) 135 - 145 mmol/L [facility] Potassium 3.9 3.5 - 5.0 mmol/L [facility] Comment: Please note: ??Patients with WBC >100,000 may have falsely elevated Potassium levels. ??For accurate Potassium quantification in these patients send serum separator tube (gold top) for subsequent determinations. ??Contact the Clinical Chemistry Laboratory if there are any questions. Chloride 101 98 - 107 mmol/L [facility] Carbon Dioxide 19(L) 22 - 31 mmol/L [facility] Anion Gap 14 5 - 15 mmol/L [facility] Calcium 8.0(L) 8.5 - 10.5 mg/dL [facility] Est Glomerular Filtration Rate 26(L) >=60 mL/min/1. 73 m?? [facility] Comment: The eGFR was calculated using the CKD-EPI equation. As with all creatinine based estimates of kidney function, eGFR values calculated with the CKD-EPI equation are not accurate in patients with acute kidney failure, extremes of body mass or the acutely ill. [email or web address]/[email or web address] eGFR 30(L) >=60 mL/min/1. 73 m?? [facility] Comment: The eGFR was calculated using the CKD-EPI equation. As with all creatinine based estimates of kidney function, eGFR values calculated with the CKD-EPI equation are not accurate in patients with acute kidney failure, extremes of body mass or the acutely ill. [email or web address] Blood specimen (specimen) 05/01/2018 4:00 AM EDT 05/01/2018 4:13 AM EDT Narrative Resulting Agency Comment Spec In Lab Hay Sparks MD CHEMISTRY ORDERABLES Performing Organization Address [facility] Co de Phone Number [facility] [place] [address] * Vancomycin, trough (04/30/2018 7:05 PM EDT) Vancomycin, Trough 15.3 mg/L [facility] Comment: Therapeutic range for complicated infections [...] Sparks MD CHEMISTRY ORDERABLES Performing Organization Address City/[facility] Co de Phone Number [facility] [place] [address] * Differential, Automated (04/30/2018 2:55 AM EDT) Neutrophil % 60.3 % [facility] Neutrophil Absolute 3.15 1.70 - 6.10 x10(3)/mcL [facility] Lymph % 22.8 % [facility] Lymphocytes Abs 1.2 0.9 - 3.2 x10(3)/[facility] Monocyte % 10.2 % [facility] Monocyte Abs 0.5 0.3 - 0.9 x10(3)/[facility] Eos % 5.7 % [facility] Eosinophils Abs 0.3 0.0 - 0.4 x10(3)/[facility] Basophil % 0.6 % [facility] Baso Absolute 0.0 0.0 - 0.1 x10(3)/[facility] Immature Gran % 0.40 % [facility] Comment: Immature granulocytes(IG's)percentage and absolute count will include metamyelocytes, myelocytes, and promyelocytes. Blood smears from CBCs yielding IG's will be scanned manually for concordance. If this scan disagrees with the automated IG or if promyelocytes are noted, a manual differential will be performed. Immature Gran Absolute 0.02 0.00 - 0.04 x10(3)/[facility] Blood specimen (specimen) 04/30/2018 2:55 AM EDT 04/30/2018 3:06 AM EDT Narrative Resulting Agency Comment Spec In Lab Apple Gutierrez MD HEMATOLOGY ORDERABLE S Performing Organization Address City/State/[facility] Co de Phone Number [facility] [place] [address] * (ABNORMAL) Hemogram (04/30/2018 2:55 AM EDT) White Blood Cell 5.2 4.0 - 9.5 x10(3)/[facility] Red Blood Cell 2.53(L) 4.58 - 5.54 x10(6)/ L [facility] Hemoglobin 7.9(L) 13.7 - 16.5 gm/dL [facility] Hematocrit 24.3(L) 40.5 - 48.5 % [facility] Mean Cell Volume 96.0(H) 82.9 - 93.1 fL [facility] Mean Cell Hemoglobin 31.2 27.5 - 32.1 pg [facility] Mean Cell Hemoglobin Concentration 32.5 32.0 - 35.7 gm/dL [facility] Platelet 186 145 - 357 x10(3)/mc L [facility] RDW Standard Deviation 54.7(H) 36.0 - 45.0 fL [facility] RDW coefficient of variation 15.6(H) 11.4 - 13.8 % [facility] Mean Platelet Volume 8.7 7.6 - 12.9 fL [facility] NRBC% auto 0.0 % [facility] NRBC Absolute 0.000 0.000 - 0.000 x10(3)/mc L [facility] Blood specimen (specimen) 04/30/2018 2:55 AM EDT 04/30/2018 3:06 AM EDT Narrative Resulting Agency Comment Spec In Lab Apple Gutierrez MD HEMATOLOGY ORDERABLE S [facility] [place] [address] * (ABNORMAL) Basic Metabolic Panel (non-fasting) (04/30/2018 2:55 AM EDT) Glucose 96 65 - 199 mg/dL [facility] Comment:Diabetes: >=200 mg/d L plus symptoms Blood Urea Nitrogen 39(H) 10 - 20 mg/dL [facility] Creatinine 2.94(H) 0.80 - 1.50 mg/dL [facility] Sodium 135 135 - 145 mmol/L [facility] Potassium 4.5 3.5 - 5.0 mmol/L [facility] Comment: Please note: ??Patients with WBC >100,000 may have falsely elevated Potassium levels. ??For accurate Potassium quantification in these patients send serum separator tube (gold top) for subsequent determinations. ??Contact the Clinical Chemistry Laboratory if there are any questions. Chloride 100 98 - 107 mmol/L [facility] Carbon Dioxide 21(L) 22 - 31 mmol/L [facility] Anion Gap 14 5 - 15 mmol/L [facility] Calcium 8.1(L) 8.5 - 10.5 mg/dL [facility] Est Glomerular Filtration Rate 23(L) >=60 mL/min/1. 73 m?? [facility] Comment: The eGFR was calculated using the CKD-EPI equation. As with all creatinine based estimates of kidney function, eGFR values calculated with the CKD-EPI equation are not accurate in patients with acute kidney failure, extremes of body mass or the acutely ill. [email or web address] eGFR 26(L) >=60 mL/min/1. 73 m?? [facility] Comment: The eGFR was calculated using the CKD-EPI equation. As with all creatinine based estimates of kidney function, eGFR values calculated with the CKD-EPI equation are not accurate in patients with acute kidney failure, extremes of body mass or the acutely ill. [email or web address] Blood specimen (specimen) 04/30/2018 2:55 AM EDT 04/30/2018 3:06 AM EDT Narrative Resulting Agency Comment Spec In Lab Hay Sparks MD CHEMISTRY ORDERABLES [facility] [place] [address] * Vancomycin, trough (04/29/2018 5:15 PM EDT) Vancomycin, Trough 15.9 mg/L [facility] Comment: Therapeutic range for complicated infections [...] MD CHEMISTRY ORDERAB LES Performing Organization Address [facility] de Phone Number [facility] [place] [address] * Vancomycin, trough (04/29/2018 6:55 AM EDT) Pathologist [facility] Vancomycin, Trough 19.5 mg/L [facility] Comment: Therapeutic range for [...] Sparks MD CHEMISTRY ORDERABLES Performing Organization Address [facility] Co de Phone Number [facility] [place] [phone] * Differential, Automated (04/29/2018 5:40 AM EDT) Pathologist [facility] Neutrophil % 63.0 % [facility] Neutrophil Absolute 3.22 1.70 - 6.10 x10(3)/[facility] Lymph % 21.1 % [facility] Lymphocytes Abs 1.1 0.9 - 3.2 x10(3)/[facility] Monocyte % 9.0 % [facility] Monocyte Abs 0.5 0.3 - 0.9 x10(3)/[facility] Eos % 5.5 % [facility] Eosinophils Abs 0.3 0.0 - 0.4 x10(3)/[facility] Basophil % 0.8 % [facility] Baso Absolute 0.0 0.0 - 0.1 x10(3)/[facility] Immature Gran % 0.60 % [facility] Comment: Immature granulocytes(IG's)percentage and absolute count will include metamyelocytes, myelocytes, and promyelocytes. Blood smears from CBCs yielding IG's will be scanned manually for concordance. If this scan disagrees with the automated IG or if promyelocytes are noted, a manual differential will be performed. Immature Gran Absolute 0.03 0.00 - 0.04 x10(3)/[facility] Blood specimen (specimen) 04/29/2018 5:40 AM EDT 04/29/2018 6:11 AM EDT Narrative Resulting Agency Comment Spec In Lab Apple Gutierrez MD HEMATOLOGY ORDERABLE S [facility] [place] [address] * (ABNORMAL) Hemogram (04/29/2018 5:40 AM EDT) White Blood Cell 5.1 4.0 - 9.5 x10(3)/mc L [facility] Red Blood Cell 2.56(L) 4.58 - 5.54 x10(6)/mc L [facility] Hemoglobin 7.7(L) 13.7 - 16.5 gm/dL [facility] Hematocrit 24.2(L) 40.5 - 48.5 % [facility] Mean Cell Volume 94.5(H) 82.9 - 93.1 fL [facility] Mean Cell Hemoglobin 30.1 27.5 - 32.1 pg [facility] Mean Cell Hemoglobin Concentration 31.8(L) 32.0 - 35.7 gm/dL [facility] Platelet 216 145 - 357 x10(3)/mc L [facility] RDW Standard Deviation 53.7(H) 36.0 - 45.0 fL [facility] RDW coefficient of variation 15.4(H) 11.4 - 13.8 % [facility] Mean Platelet Volume 8.9 7.6 - 12.9 fL [facility] NRBC% auto 0.0 % [facility] NRBC Absolute 0.000 0.000 - 0.000 x10(3)/mc L [facility] Blood specimen (specimen) 04/29/2018 5:40 AM EDT 04/29/2018 6:11 AM EDT Narrative Resulting Agency Comment Spec In Lab Apple Gutierrez MD HEMATOLOGY ORDERABLE S [facility] [place] [address] * (ABNORMAL) Basic Metabolic Panel (non-fasting) (04/29/2018 5:40 AM EDT) Glucose 91 65 - 199 mg/dL [facility] Comment:Diabetes: >=200 mg/d L plus symptoms Blood Urea Nitrogen 41(H) 10 - 20 mg/dL [facility] Creatinine 2.51(H) 0.80 - 1.50 mg/dL [facility] Sodium 136 135 - 145 mmol/L [facility] Potassium 4.9 3.5 - 5.0 mmol/L [facility] Comment: Please note: ??Patients with WBC >100,000 may have falsely elevated Potassium levels. ??For accurate Potassium quantification in these patients send serum separator tube (gold top) for subsequent determinations. ??Contact the Clinical Chemistry Laboratory if there are any questions. Chloride 104 98 - 107 mmol/L [facility] Carbon Dioxide 21(L) 22 - 31 mmol/L [facility] Anion Gap 11 5 - 15 mmol/L [facility] Calcium 8.0(L) 8.5 - 10.5 mg/dL [facility] Est Glomerular Filtration Rate 28(L) >=60 mL/min/1. 73 m?? [facility] Comment: The eGFR was calculated using the CKD-EPI equation. As with all creatinine based estimates of kidney function, eGFR values calculated with the CKD-EPI equation are not accurate in patients with acute kidney failure, extremes of body mass or the acutely ill. http://[employer]/[facility] eGFR 32(L) >=60 mL/min/1. 73 m?? [facility] Comment: The eGFR was calculated using the CKD-EPI equation. As with all creatinine based estimates of kidney function, eGFR values calculated with the CKD-EPI equation are not accurate in patients with acute kidney failure, extremes of body mass or the acutely ill. [email or web address] Blood specimen (specimen) 04/29/2018 5:40 AM EDT 04/29/2018 6:11 AM EDT Narrative Resulting Agency Comment Spec In Lab Hay Sparks MD CHEMISTRY ORDERABLES [facility] [place] [address] * (ABNORMAL) Vancomycin, trough (04/28/2018 1:09 PM EDT) Vancomycin, Trough 21.6(Crit ical) mg/L [facility] Comment: Called by: MASSIEL, Read [...] Sparks MD CHEMISTRY ORDERABLES Performing Organization Address City/[facility]/ZIP Co de Phone Number [facility] [place] [address] * EKG 12 Lead (04/28/2018 7:17 AM EDT) Ventricular rate 51 BPM MUSE SYSTEM Atrial Rate 51 BPM MUSE SYSTEM P-R Interval 162 ms MUSE SYSTEM QRS Duration 92 ms MUSE SYSTEM Q-T Interval 442 ms MUSE SYSTEM QTC Calculated (Bezet) 407 ms MUSE SYSTEM Calculated P [place] 59 degrees MUSE SYSTEM Calculated R [place] 35 degrees MUSE SYSTEM Calculated T [place] 34 degrees MUSE SYSTEM INTERPRETATION Sinus bradycardia Otherwise normal ECG When compared with ECG of 26-MAY-2017 11:16, No significant change was found Confirmed by MD Aure, Sukumar Rubi ([id number]) on 04/29/2018 1:34:03 PM MUSE SYSTEM 04/28/2018 7:17 AM EDT 04/29/2018 1:34 PM EDT Chase Olvera MD ECG ORDERABLES Performing Organization Address [facility]/ZIP Co de Phone Number M[facility] SYSTEM * Differential, Automated (04/28/2018 4:40 AM EDT) Neutrophil % 66.6 % [facility] Neutrophil Absolute 4.11 1.70 - 6.10 x10(3)/[facility] Lymph % 23.5 % [facility] Lymphocytes Abs 1.4 0.9 - 3.2 x10(3)/[facility] Monocyte % 7.8 % [facility] Monocyte Abs 0.5 0.3 - 0.9 x10(3)/[facility] Eos % 1.5 % [facility] Eosinophils Abs 0.1 0.0 - 0.4 x10(3)/[facility] Basophil % 0.3 % [facility] Baso Absolute 0.0 0.0 - 0.1 x10(3)/[facility] Immature Gran % 0.30 % [facility] Comment: Immature granulocytes(IG's)percentage and absolute count will include metamyelocytes, myelocytes, and promyelocytes. Blood smears from CBCs yielding IG's will be scanned manually for concordance. If this scan disagrees with the automated IG or if promyelocytes are noted, a manual differential will be performed. Immature Gran Absolute 0.02 0.00 - 0.04 x10(3)/[facility] Blood specimen (specimen) 04/28/2018 4:40 AM EDT 04/28/2018 4:53 AM EDT Narrative Resulting Agency Comment Spec In Lab Apple Gutierrez MD HEMATOLOGY ORDERABLE S [facility] [place] [address] * (ABNORMAL) Hemogram (04/28/2018 4:40 AM EDT) White Blood Cell 6.2 4.0 - 9.5 x10(3)/[facility] Red Blood Cell 2.54(L) 4.58 - 5.54 x10(6)/mc L [facility] Hemoglobin 7.6(L) 13.7 - 16.5 gm/dL [facility] Hematocrit 24.3(L) 40.5 - 48.5 % [facility] Mean Cell Volume 95.7(H) 82.9 - 93.1 fL [facility] Mean Cell Hemoglobin 29.9 27.5 - 32.1 pg [facility] Mean Cell Hemoglobin Concentration 31.3(L) 32.0 - 35.7 gm/dL [facility] Platelet 249 145 - 357 x10(3)/[facility] RDW Standard Deviation 55.3(H) 36.0 - 45.0 fL [facility] RDW coefficient of variation 15.6(H) 11.4 - 13.8 % [facility] Mean Platelet Volume 8.7 7.6 - 12.9 fL [facility] NRBC% auto 0.0 % [facility] NRBC Absolute 0.000 0.000 - 0.000 x10(3)/mc L [facility] Blood specimen (specimen) 04/28/2018 4:40 AM EDT 04/28/2018 4:53 AM EDT Narrative Resulting Agency Comment Spec In Lab Apple Gutierrez MD HEMATOLOGY ORDERABLE S [facility] [place] [address] * (ABNORMAL) Basic Metabolic Panel (non-fasting) (04/28/2018 4:40 AM EDT) Glucose 94 65 - 199 mg/dL [facility] Comment:Diabetes: >=200 mg/d L plus symptoms Blood Urea Nitrogen 44(H) 10 - 20 mg/dL [facility] Creatinine 2.80(H) 0.80 - 1.50 mg/dL [facility] Sodium 133(L) 135 - 145 mmol/L [facility] Potassium 4.9 3.5 - 5.0 mmol/L [facility] Comment: Please note: ??Patients with WBC >100,000 may have falsely elevated Potassium levels. ??For accurate Potassium quantification in these patients send serum separator tube (gold top) for subsequent determinations. ??Contact the Clinical Chemistry Laboratory if there are any questions. Chloride 101 98 - 107 mmol/L [facility] Carbon Dioxide 20(L) 22 - 31 mmol/L [facility] Anion Gap 12 5 - 15 mmol/L [facility] Calcium 8.1(L) 8.5 - 10.5 mg/dL [facility] Est Glomerular Filtration Rate 24(L) >=60 mL/min/1. 73 m?? [facility] Comment: The eGFR was calculated using the CKD-EPI equation. As with all creatinine based estimates of kidney function, eGFR values calculated with the CKD-EPI equation are not accurate in patients with acute kidney failure, extremes of body mass or the acutely ill. http://[employer]/[facility]Dnk[facility] eGFR 28(L) >=60 mL/min/1. 73 m?? [facility] Comment: The eGFR was calculated using the CKD-EPI equation. As with all creatinine based estimates of kidney function, eGFR values calculated with the CKD-EPI equation are not accurate in patients with acute kidney failure, extremes of body mass or the acutely ill. http://[employer]/[facility]nk[facility] Blood specimen (specimen) 04/28/2018 4:40 AM EDT 04/28/2018 4:53 AM EDT Narrative Resulting Agency Comment Spec In Lab Hay Sparks MD CHEMISTRY ORDERABLES Performing Organization Address [facility] Co de Phone Number [facility] [place] [address] * Vancomycin, trough (04/27/2018 1:30 PM EDT) [facility] Vancomycin, Trough 11.1 mg/L [facility] Comment: Therapeutic range for complicated infections [...] Sparks MD CHEMISTRY ORDERABLES Performing Organization Address City/[facility] Co de Phone Number [facility] [place] [address] * XR PICC Placement Over 5 Years [...] 4:43 AM EDT) Neutrophil % 84.4 % [facility] Neutrophil Absolute 4.96 1.70 - 6.10 x10(3)/mc L [facility] Lymph % 9.7 % [facility] Lymphocytes Abs 0.6(L) 0.9 - 3.2 x10(3)/mc L [facility] Monocyte % 5.5 % [facility] Monocyte Abs 0.3 0.3 - 0.9 x10(3)/mc L [facility] Eos % 0.0 % [facility] Eosinophils Abs 0.0 0.0 - 0.4 x10(3)/mc L [facility] Basophil % 0.2 % [facility] Baso Absolute 0.0 0.0 - 0.1 x10(3)/[facility] Immature Gran % 0.20 % [facility] Comment: Immature granulocytes(IG's)percentage and absolute count will include metamyelocytes, myelocytes, and promyelocytes. Blood smears from CBCs yielding IG's will be scanned manually for concordance. If this scan disagrees with the automated IG or if promyelocytes are noted, a manual differential will be performed. Immature Gran Absolute 0.01 0.00 - 0.04 x10(3)/[facility] Blood specimen (specimen) 04/27/2018 4:43 AM EDT 04/27/2018 5:16 AM EDT Narrative Resulting Agency Comment Spec In Lab Apple Gutierrez MD HEMATOLOGY ORDERABLE S Performing Organization Address City/State/[facility] Co de Phone Number [facility] [place] [address] * (ABNORMAL) Hemogram (04/27/2018 4:43 AM EDT) White Blood Cell 5.9 4.0 - 9.5 x10(3)/[facility] Red Blood Cell 2.81(L) 4.58 - 5.54 x10(6)/[facility] Hemoglobin 8.8(L) 13.7 - 16.5 gm/dL [facility] Hematocrit 27.0(L) 40.5 - 48.5 % [facility] Mean Cell Volume 96.1(H) 82.9 - 93.1 fL [facility] Mean Cell Hemoglobin 31.3 27.5 - 32.1 pg [facility] Mean Cell Hemoglobin Concentration 32.6 32.0 - 35.7 gm/dL [facility] Platelet 302 145 - 357 x10(3)/[facility] RDW Standard Deviation 54.9(H) 36.0 - 45.0 fL [facility] RDW coefficient of variation 15.5(H) 11.4 - 13.8 % [facility] Mean Platelet Volume 8.8 7.6 - 12.9 fL [facility] NRBC% auto 0.0 % [facility] NRBC Absolute 0.000 0.000 - 0.000 x10(3)/mc L [facility] Blood specimen (specimen) 04/27/2018 4:43 AM EDT 04/27/2018 5:16 AM EDT Narrative Resulting Agency Comment Spec In Lab Apple Gutierrez MD HEMATOLOGY ORDERABLE S [facility] [place] [address] * (ABNORMAL) Basic Metabolic Panel (non-fasting) (04/27/2018 4:43 AM EDT) Glucose 142 65 - 199 mg/dL [facility] Comment:Diabetes: >=200 mg/d L plus symptoms Blood Urea Nitrogen 41(H) 10 - 20 mg/dL [facility] Creatinine 2.81(H) 0.80 - 1.50 mg/dL [facility] Sodium 132(L) 135 - 145 mmol/L [facility] Potassium 5.6(H) 3.5 - 5.0 mmol/L [facility] Comment: Please note: ??Patients with WBC >100,000 may have falsely elevated Potassium levels. ??For accurate Potassium quantification in these patients send serum separator tube (gold top) for subsequent determinations. ??Contact the Clinical Chemistry Laboratory if there are any questions. Chloride 101 98 - 107 mmol/L [facility] Carbon Dioxide 18(L) 22 - 31 mmol/L [facility] Anion Gap 13 5 - 15 mmol/L [facility] Calcium 8.4(L) 8.5 - 10.5 mg/dL [facility] Est Glomerular Filtration Rate 24(L) >=60 mL/min/1. 73 m?? [facility] Comment: The eGFR was calculated using the CKD-EPI equation. As with all creatinine based estimates of kidney function, eGFR values calculated with the CKD-EPI equation are not accurate in patients with acute kidney failure, extremes of body mass or the acutely ill. http://[employer]/[email or web address] eGFR 28(L) >=60 mL/min/1. 73 m?? [facility] Comment: The eGFR was calculated using the CKD-EPI equation. As with all creatinine based estimates of kidney function, eGFR values calculated with the CKD-EPI equation are not accurate in patients with acute kidney failure, extremes of body mass or the acutely ill. http://[email or web address] Blood specimen (specimen) 04/27/2018 4:43 AM EDT 04/27/2018 5:16 AM EDT Narrative Resulting Agency Comment Spec In Lab Hay Sparks MD CHEMISTRY ORDERABLES [facility] [place] [address] * (ABNORMAL) Hemogram (04/26/2018 3:09 PM EDT) White Blood Cell 4.8 4.0 - 9.5 x10(3)/mc L [facility] Red Blood Cell 2.90(L) 4.58 - 5.54 x10(6)/mc L [facility] Hemoglobin 8.8(L) 13.7 - 16.5 gm/dL [facility] Hematocrit 27.5(L) 40.5 - 48.5 % [facility] Mean Cell Volume 94.8(H) 82.9 - 93.1 fL [facility] Mean Cell Hemoglobin 30.3 27.5 - 32.1 pg [facility] Mean Cell Hemoglobin Concentration 32.0 32.0 - 35.7 gm/dL [facility] Platelet 273 145 - 357 x10(3)/mc L [facility] RDW Standard Deviation 55.8(H) 36.0 - 45.0 fL [facility] RDW coefficient of variation 15.9(H) 11.4 - 13.8 % [facility] Mean Platelet Volume 9.1 7.6 - 12.9 fL [facility] NRBC% auto 0.0 % [facility] NRBC Absolute 0.000 0.000 - 0.000 x10(3)/mc L [facility] Blood specimen (specimen) 04/26/2018 3:09 PM EDT 04/26/2018 3:16 PM EDT Narrative Resulting Agency Comment Spec In Lab Chase Olvera MD HEMATOLOGY ORDERA BLES Performing Organization Address [facility] de Phone Number [facility] [place] [address] * Vancomycin, trough (04/26/2018 2:15 PM EDT) Vancomycin, Trough 11.8 mg/L [facility] Comment: Therapeutic range for [...] Sparks MD CHEMISTRY ORDERABLES Performing Organization Address [facility] Co de Phone Number [facility] [place] [address] * ABORH Recheck Status (04/26/2018 11:42 AM EDT) ABORH Type Recheck Completed [facility] Blood specimen (specimen) 04/26/2018 11:42 AM EDT 04/26/2018 11:42 AM EDT Narrative Resulting Agency Comment Spec In Lab Natalya Jacobsen MD BLOOD BANK LAB ORDER KELLY Performing Organization Address City/[facility]/ZIP Co de Phone Number [facility] [place] [address] * Antibody screen (04/26/2018 11:42 AM EDT) Pathologist [facility] Ab Screen Interp Negative [facility] Expires at [id number] on: 04/29/2018 [facility] Blood specimen (specimen) 04/26/2018 11:42 AM EDT 04/26/2018 11:42 AM EDT Narrative Resulting Agency Comment Spec In Lab Natalya Jacobsen MD BLOOD BANK LAB ORDER KELLY Performing Organization Address City/[facility]/ZIP Co de Phone Number [facility] [place] [address] * ABO/Rh Typing (04/26/2018 11:42 AM EDT) Pathologist [facility] ABORH Type A Pos [facility] Blood specimen (specimen) 04/26/2018 11:42 AM EDT 04/26/2018 11:42 AM EDT Narrative Resulting Agency Comment Spec In Lab Natalya Jacobsen MD BLOOD BANK LAB ORDER KELLY Performing Organization Address City/[facility]/ZIP Co de Phone Number [facility] [place] [address] * Differential, Automated (04/26/2018 4:39 AM EDT) Neutrophil % 55.1 % [facility] Neutrophil Absolute 2.56 1.70 - 6.10 x10(3)/[facility] Lymph % 27.7 % [facility] Lymphocytes Abs 1.3 0.9 - 3.2 x10(3)/[facility] Monocyte % 10.5 % [facility] Monocyte Abs 0.5 0.3 - 0.9 x10(3)/[facility] Eos % 5.2 % [facility] Eosinophils Abs 0.2 0.0 - 0.4 x10(3)/[facility] Basophil % 1.3 % [facility] Baso Absolute 0.1 0.0 - 0.1 x10(3)/[facility] Immature Gran % 0.20 % [facility] Comment: Immature granulocytes(IG's)percentage and absolute count will include metamyelocytes, myelocytes, and promyelocytes. Blood smears from CBCs yielding IG's will be scanned manually for concordance. If this scan disagrees with the automated IG or if promyelocytes are noted, a manual differential will be performed. Immature Gran Absolute 0.01 0.00 - 0.04 x10(3)/[facility] Blood specimen (specimen) 04/26/2018 4:39 AM EDT 04/26/2018 4:58 AM EDT Narrative Resulting Agency Comment Spec In Lab Apple Gutierrez MD HEMATOLOGY ORDERABLE S [facility] [place] [address] * (ABNORMAL) Hemogram (04/26/2018 4:39 AM EDT) White Blood Cell 4.6 4.0 - 9.5 x10(3)/mc L [facility] Red Blood Cell 2.58(L) 4.58 - 5.54 x10(6)/mc L [facility] Hemoglobin 7.9(L) 13.7 - 16.5 gm/dL [facility] Hematocrit 24.6(L) 40.5 - 48.5 % [facility] Mean Cell Volume 95.3(H) 82.9 - 93.1 fL [facility] Mean Cell Hemoglobin 30.6 27.5 - 32.1 pg [facility] Mean Cell Hemoglobin Concentration 32.1 32.0 - 35.7 gm/dL [facility] Platelet 253 145 - 357 x10(3)/mc L [facility] RDW Standard Deviation 54.4(H) 36.0 - 45.0 fL [facility] RDW coefficient of variation 15.7(H) 11.4 - 13.8 % [facility] Mean Platelet Volume 8.4 7.6 - 12.9 fL [facility] NRBC% auto 0.0 % [facility] NRBC Absolute 0.000 0.000 - 0.000 x10(3)/mc L [facility] Blood specimen (specimen) 04/26/2018 4:39 AM EDT 04/26/2018 4:58 AM EDT Narrative Resulting Agency Comment Spec In Lab Apple Gutierrez MD HEMATOLOGY ORDERABLE S [facility] [place] [address] * (ABNORMAL) Basic Metabolic Panel (non-fasting) (04/26/2018 4:39 AM EDT) Glucose 93 65 - 199 mg/dL [facility] Comment:Diabetes: >=200 mg/d L plus symptoms Blood Urea Nitrogen 37(H) 10 - 20 mg/dL [facility] Creatinine 2.80(H) 0.80 - 1.50 mg/dL [facility] Sodium 138 135 - 145 mmol/L [facility] Potassium 5.2(H) 3.5 - 5.0 mmol/L [facility] Comment: Please note: ??Patients with WBC >100,000 may have falsely elevated Potassium levels. ??For accurate Potassium quantification in these patients send serum separator tube (gold top) for subsequent determinations. ??Contact the Clinical Chemistry Laboratory if there are any questions. Chloride 106 98 - 107 mmol/L [facility] Carbon Dioxide 19(L) 22 - 31 mmol/L [facility] Anion Gap 13 5 - 15 mmol/L [facility] Calcium 8.2(L) 8.5 - 10.5 mg/dL [facility] Est Glomerular Filtration Rate 24(L) >=60 mL/min/1. 73 m?? [facility] Comment: The eGFR was calculated using the CKD-EPI equation. As with all creatinine based estimates of kidney function, eGFR values calculated with the CKD-EPI equation are not accurate in patients with acute kidney failure, extremes of body mass or the acutely ill. http://[employer]/[facility] [email or web address].k eGFR 28(L) >=60 mL/min/1. 73 m?? [facility] Comment: The eGFR was calculated using the CKD-EPI equation. As with all creatinine based estimates of kidney function, eGFR values calculated with the CKD-EPI equation are not accurate in patients with acute kidney failure, extremes of body mass or the acutely ill. http://[employer]/[email or web address] Blood specimen (specimen) 04/26/2018 4:39 AM EDT 04/26/2018 4:58 AM EDT Narrative Resulting Agency Comment Spec In Lab Hay Sparks MD CHEMISTRY ORDERABLES [facility] [place] [address] * SCAN DOC: ECG (04/26/2018 12:00 AM EDT) Narrative 04/26/2018 12:00 AM EDT Ordered by an unspecified provider. Scanning Provider MEDIA MGR SCAN EXT O RDR/RSLT * Differential, Automated (04/25/2018 5:18 AM EDT) Neutrophil % 64.9 % [facility] Neutrophil Absolute 3.49 1.70 - 6.10 x10(3)/mcL [facility] Lymph % 20.4 % [facility] Lymphocytes Abs 1.1 0.9 - 3.2 x10(3)/[facility] Monocyte % 8.0 % [facility] Monocyte Abs 0.4 0.3 - 0.9 x10(3)/[facility] Eos % 4.8 % [facility] Eosinophils Abs 0.3 0.0 - 0.4 x10(3)/[facility] Basophil % 1.5 % [facility] Baso Absolute 0.1 0.0 - 0.1 x10(3)/[facility] Immature Gran % 0.40 % [facility] Comment: Immature granulocytes(IG's)percentage and absolute count will include metamyelocytes, myelocytes, and promyelocytes. Blood smears from CBCs yielding IG's will be scanned manually for concordance. If this scan disagrees with the automated IG or if promyelocytes are noted, a manual differential will be performed. Immature Gran Absolute 0.02 0.00 - 0.04 x10(3)/[facility] Blood specimen (specimen) 04/25/2018 5:18 AM EDT 04/25/2018 5:43 AM EDT Narrative Resulting Agency Comment Spec In Lab Apple Gutierrez MD HEMATOLOGY ORDERABLE S [facility] [place] [address] * (ABNORMAL) Hemogram (04/25/2018 5:18 AM EDT) White Blood Cell 5.4 4.0 - 9.5 x10(3)/mc L [facility] Red Blood Cell 2.70(L) 4.58 - 5.54 x10(6)/ L [facility] Hemoglobin 8.2(L) 13.7 - 16.5 gm/dL [facility] Hematocrit 26.1(L) 40.5 - 48.5 % [facility] Mean Cell Volume 96.7(H) 82.9 - 93.1 fL [facility] Mean Cell Hemoglobin 30.4 27.5 - 32.1 pg [facility] Mean Cell Hemoglobin Concentration 31.4(L) 32.0 - 35.7 gm/dL [facility] Platelet 327 145 - 357 x10(3)/mc L [facility] RDW Standard Deviation 55.7(H) 36.0 - 45.0 fL [facility] RDW coefficient of variation 15.8(H) 11.4 - 13.8 % [facility] Mean Platelet Volume 9.1 7.6 - 12.9 fL [facility] NRBC% auto 0.0 % [facility] NRBC Absolute 0.000 0.000 - 0.000 x10(3)/mc L [facility] Blood specimen (specimen) 04/25/2018 5:18 AM EDT 04/25/2018 5:43 AM EDT Narrative Resulting Agency Comment Spec In Lab Apple Gutierrez MD HEMATOLOGY ORDERABLE S [facility] [place] [address] * (ABNORMAL) Basic Metabolic Panel (non-fasting) (04/25/2018 5:18 AM EDT) Glucose 97 65 - 199 mg/dL [facility] Comment:Diabetes: >=200 mg/d L plus symptoms Blood Urea Nitrogen 39(H) 10 - 20 mg/dL [facility] Creatinine 2.58(H) 0.80 - 1.50 mg/dL [facility] Sodium 138 135 - 145 mmol/L [facility] Potassium 5.2(H) 3.5 - 5.0 mmol/L [facility] Comment: Please note: ??Patients with WBC >100,000 may have falsely elevated Potassium levels. ??For accurate Potassium quantification in these patients send serum separator tube (gold top) for subsequent determinations. ??Contact the Clinical Chemistry Laboratory if there are any questions. Chloride 106 98 - 107 mmol/L [facility] Carbon Dioxide 19(L) 22 - 31 mmol/L [facility] Anion Gap 13 5 - 15 mmol/L [facility] Calcium 8.1(L) 8.5 - 10.5 mg/dL [facility] Est Glomerular Filtration Rate 27(L) >=60 mL/min/1. 73 m?? [facility] Comment: The eGFR was calculated using the CKD-EPI equation. As with all creatinine based estimates of kidney function, eGFR values calculated with the CKD-EPI equation are not accurate in patients with acute kidney failure, extremes of body mass or the acutely ill. http://[employer]/[email or web address] eGFR 31(L) >=60 mL/min/1. 73 m?? [facility] Comment: The eGFR was calculated using the CKD-EPI equation. As with all creatinine based estimates of kidney function, eGFR values calculated with the CKD-EPI equation are not accurate in patients with acute kidney failure, extremes of body mass or the acutely ill. http://[employer]/[facility] [email or web address] Blood specimen (specimen) 04/25/2018 5:18 AM EDT 04/25/2018 5:43 AM EDT Narrative Resulting Agency Comment Spec In Lab Hay Sparks MD CHEMISTRY ORDERABLES [facility] [place] [address] * Differential, Automated (04/24/2018 4:17 AM EDT) Neutrophil % 58.3 % [facility] Neutrophil Absolute 2.74 1.70 - 6.10 x10(3)/[facility] Lymph % 24.8 % [facility] Lymphocytes Abs 1.2 0.9 - 3.2 x10(3)/[facility] Monocyte % 9.3 % [facility] Monocyte Abs 0.4 0.3 - 0.9 x10(3)/[facility] Eos % 5.9 % [facility] Eosinophils Abs 0.3 0.0 - 0.4 x10(3)/[facility] Basophil % 1.1 % [facility] Baso Absolute 0.0 0.0 - 0.1 x10(3)/[facility] Immature Gran % 0.60 % [facility] Comment: Immature granulocytes(IG's)percentage and absolute count will include metamyelocytes, myelocytes, and promyelocytes. Blood smears from CBCs yielding IG's will be scanned manually for concordance. If this scan disagrees with the automated IG or if promyelocytes are noted, a manual differential will be performed. Immature Gran Absolute 0.03 0.00 - 0.04 x10(3)/[facility] Blood specimen (specimen) 04/24/2018 4:17 AM EDT 04/24/2018 4:40 AM EDT Narrative Resulting Agency Comment Spec In Lab Apple Gutierrez MD HEMATOLOGY ORDERABLE S [facility] [place] [address] * (ABNORMAL) Hemogram (04/24/2018 4:17 AM EDT) White Blood Cell 4.7 4.0 - 9.5 x10(3)/mc L [facility] Red Blood Cell 2.61(L) 4.58 - 5.54 x10(6)/mc L [facility] Hemoglobin 7.9(L) 13.7 - 16.5 gm/dL [facility] Hematocrit 24.6(L) 40.5 - 48.5 % [facility] Mean Cell Volume 94.3(H) 82.9 - 93.1 fL [facility] Mean Cell Hemoglobin 30.3 27.5 - 32.1 pg [facility] Mean Cell Hemoglobin Concentration 32.1 32.0 - 35.7 gm/dL [facility] Platelet 283 145 - 357 x10(3)/mc L [facility] RDW Standard Deviation 54.0(H) 36.0 - 45.0 fL [facility] RDW coefficient of variation 15.7(H) 11.4 - 13.8 % [facility] Mean Platelet Volume 8.6 7.6 - 12.9 fL [facility] NRBC% auto 0.0 % [facility] NRBC Absolute 0.000 0.000 - 0.000 x10(3)/mc L [facility] Blood specimen (specimen) 04/24/2018 4:17 AM EDT 04/24/2018 4:40 AM EDT Narrative Resulting Agency Comment Spec In Lab Apple Gutierrez MD HEMATOLOGY ORDERABLE S [facility] [place] [address] * (ABNORMAL) Basic Metabolic Panel (non-fasting) (04/24/2018 4:17 AM EDT) Glucose 93 65 - 199 mg/dL [facility] Comment:Diabetes: >=200 mg/d L plus symptoms Blood Urea Nitrogen 38(H) 10 - 20 mg/dL [facility] Creatinine 2.74(H) 0.80 - 1.50 mg/dL [facility] Sodium 138 135 - 145 mmol/L [facility] Potassium 5.2(H) 3.5 - 5.0 mmol/L [facility] Comment: Please note: ??Patients with WBC >100,000 may have falsely elevated Potassium levels. ??For accurate Potassium quantification in these patients send serum separator tube (gold top) for subsequent determinations. ??Contact the Clinical Chemistry Laboratory if there are any questions. Chloride 108(H) 98 - 107 mmol/L [facility] Carbon Dioxide 20(L) 22 - 31 mmol/L [facility] Anion Gap 10 5 - 15 mmol/L [facility] Calcium 8.0(L) 8.5 - 10.5 mg/dL [facility] Est Glomerular Filtration Rate 25(L) >=60 mL/min/1. 73 m?? [facility] Comment: The eGFR was calculated using the CKD-EPI equation. As with all creatinine based estimates of kidney function, eGFR values calculated with the CKD-EPI equation are not accurate in patients with acute kidney failure, extremes of body mass or the acutely ill. http://[employer]/[facility] EDMONDnkf eGFR 29(L) >=60 mL/min/1. 73 m?? [facility] Comment: The eGFR was calculated using the CKD-EPI equation. As with all creatinine based estimates of kidney function, eGFR values calculated with the CKD-EPI equation are not accurate in patients with acute kidney failure, extremes of body mass or the acutely ill. [email or web address] Blood specimen (specimen) 04/24/2018 4:17 AM EDT 04/24/2018 4:40 AM EDT Narrative Resulting Agency Comment Spec In Lab Hay Sparks MD CHEMISTRY ORDERABLES Performing Organization Address City/State/[facility] Co de Phone Number [facility] [place] [address] * Differential, Automated (04/23/2018 4:56 AM EDT) Neutrophil % 61.5 % [facility] Neutrophil Absolute 3.19 1.70 - 6.10 x10(3)/[facility] Lymph % 22.2 % [facility] Lymphocytes Abs 1.2 0.9 - 3.2 x10(3)/[facility] Monocyte % 9.5 % [facility] Monocyte Abs 0.5 0.3 - 0.9 x10(3)/[facility] Eos % 5.6 % [facility] Eosinophils Abs 0.3 0.0 - 0.4 x10(3)/[facility] Basophil % 0.8 % [facility] Baso Absolute 0.0 0.0 - 0.1 x10(3)/[facility] Immature Gran % 0.40 % [facility] Comment: Immature granulocytes(IG's)percentage and absolute count will include metamyelocytes, myelocytes, and promyelocytes. Blood smears from CBCs yielding IG's will be scanned manually for concordance. If this scan disagrees with the automated IG or if promyelocytes are noted, a manual differential will be performed. Immature Gran Absolute 0.02 0.00 - 0.04 x10(3)/[facility] Blood specimen (specimen) 04/23/2018 4:56 AM EDT 04/23/2018 5:25 AM EDT Narrative Resulting Agency Comment Spec In Lab Apple Gutierrez MD HEMATOLOGY ORDERABLE S [facility] [place] [address] * (ABNORMAL) Hemogram (04/23/2018 4:56 AM EDT) White Blood Cell 5.2 4.0 - 9.5 x10(3)/ L [facility] Red Blood Cell 2.60(L) 4.58 - 5.54 x10(6)/mc L [facility] Hemoglobin 8.0(L) 13.7 - 16.5 gm/dL [facility] Hematocrit 24.3(L) 40.5 - 48.5 % [facility] Mean Cell Volume 93.5(H) 82.9 - 93.1 fL [facility] Mean Cell Hemoglobin 30.8 27.5 - 32.1 pg [facility] Mean Cell Hemoglobin Concentration 32.9 32.0 - 35.7 gm/dL [facility] Platelet 317 145 - 357 x10(3)/mc L [facility] RDW Standard Deviation 54.2(H) 36.0 - 45.0 fL [facility] RDW coefficient of variation 15.9(H) 11.4 - 13.8 % [facility] Mean Platelet Volume 8.5 7.6 - 12.9 fL [facility] NRBC% auto 0.0 % [facility] NRBC Absolute 0.000 0.000 - 0.000 x10(3)/mc L [facility] Blood specimen (specimen) 04/23/2018 4:56 AM EDT 04/23/2018 5:25 AM EDT Narrative Resulting Agency Comment Spec In Lab Apple Gutierrez MD HEMATOLOGY ORDERABLE S [facility] [place] [address] * (ABNORMAL) Basic Metabolic Panel (non-fasting) (04/23/2018 4:56 AM EDT) Glucose 96 65 - 199 mg/dL [facility] Comment:Diabetes: >=200 mg/d L plus symptoms Blood Urea Nitrogen 36(H) 10 - 20 mg/dL [facility] Creatinine 2.49(H) 0.80 - 1.50 mg/dL [facility] Sodium 137 135 - 145 mmol/L [facility] Potassium 4.9 3.5 - 5.0 mmol/L [facility] Comment: Please note: ??Patients with WBC >100,000 may have falsely elevated Potassium levels. ??For accurate Potassium quantification in these patients send serum separator tube (gold top) for subsequent determinations. ??Contact the Clinical Chemistry Laboratory if there are any questions. Chloride 103 98 - 107 mmol/L [facility] Carbon Dioxide 20(L) 22 - 31 mmol/L [facility] Anion Gap 14 5 - 15 mmol/L [facility] Calcium 8.1(L) 8.5 - 10.5 mg/dL [facility] Est Glomerular Filtration Rate 28(L) >=60 mL/min/1. 73 m?? [facility] Comment: The eGFR was calculated using the CKD-EPI equation. As with all creatinine based estimates of kidney function, eGFR values calculated with the CKD-EPI equation are not accurate in patients with acute kidney failure, extremes of body mass or the acutely ill. http://[employer]/[facility] EDMONDnkf eGFR 32(L) >=60 mL/min/1. 73 m?? [facility] Comment: The eGFR was calculated using the CKD-EPI equation. As with all creatinine based estimates of kidney function, eGFR values calculated with the CKD-EPI equation are not accurate in patients with acute kidney failure, extremes of body mass or the acutely ill. http://[employer]/[facility] [email or web address] Blood specimen (specimen) 04/23/2018 4:56 AM EDT 04/23/2018 5:25 AM EDT Narrative Resulting Agency Comment Spec In Lab Hay Sparks MD CHEMISTRY ORDERABLES Performing Organization Address City/State/[facility] Co de Phone Number [facility] [place] [address] * Differential, Automated (04/22/2018 5:34 AM EDT) Neutrophil % 67.1 % [facility] Neutrophil Absolute 3.67 1.70 - 6.10 x10(3)/[facility] Lymph % 17.3 % [facility] Lymphocytes Abs 1.0 0.9 - 3.2 x10(3)/[facility] Monocyte % 10.0 % [facility] Monocyte Abs 0.6 0.3 - 0.9 x10(3)/[facility] Eos % 4.7 % [facility] Eosinophils Abs 0.3 0.0 - 0.4 x10(3)/[facility] Basophil % 0.7 % [facility] Baso Absolute 0.0 0.0 - 0.1 x10(3)/[facility] Immature Gran % 0.20 % [facility] Comment: Immature granulocytes(IG's)percentage and absolute count will include metamyelocytes, myelocytes, and promyelocytes. Blood smears from CBCs yielding IG's will be scanned manually for concordance. If this scan disagrees with the automated IG or if promyelocytes are noted, a manual differential will be performed. Immature Gran Absolute 0.01 0.00 - 0.04 x10(3)/[facility] Blood specimen (specimen) 04/22/2018 5:34 AM EDT 04/22/2018 5:51 AM EDT Narrative Resulting Agency Comment Spec In Lab Apple Gutierrez MD HEMATOLOGY ORDERABLE S Performing Organization Address City/State/[facility] Co de Phone Number [facility] [place] [address] * (ABNORMAL) Hemogram (04/22/2018 5:34 AM EDT) White Blood Cell 5.5 4.0 - 9.5 x10(3)/[facility] LABORATORY Red Blood Cell 2.62(L) 4.58 - 5.54 x10(6)/[facility]ATORY Hemoglobin 8.0(L) 13.7 - 16.5 gm/dL [facility] Hematocrit 24.8(L) 40.5 - 48.5 % [facility] Mean Cell Volume 94.7(H) 82.9 - 93.1 fL [facility] Mean Cell Hemoglobin 30.5 27.5 - 32.1 pg [facility] Mean Cell Hemoglobin Concentration 32.3 32.0 - 35.7 gm/dL [facility] Platelet 289 145 - 357 x10(3)/[facility]ORATORY RDW Standard Deviation 56.7(H) 36.0 - 45.0 fL [facility] RDW coefficient of variation 16.2(H) 11.4 - 13.8 % [facility] Mean Platelet Volume 8.6 7.6 - 12.9 fL [facility] NRBC% auto 0.0 % [facility] NRBC Absolute 0.000 0.000 - 0.000 x10(3)/mc L [facility] Blood specimen (specimen) 04/22/2018 5:34 AM EDT 04/22/2018 5:51 AM EDT Narrative Resulting Agency Comment Spec In Lab Apple Gutierrez MD HEMATOLOGY ORDERABLE S [facility] [place] [address] * (ABNORMAL) Basic Metabolic Panel (non-fasting) (04/22/2018 5:34 AM EDT) Glucose 100 65 - 199 mg/dL [facility] Comment:Diabetes: >=200 mg/d L plus symptoms Blood Urea Nitrogen 38(H) 10 - 20 mg/dL [facility] Creatinine 2.30(H) 0.80 - 1.50 mg/dL [facility] Sodium 138 135 - 145 mmol/L [facility] Potassium 5.3(H) 3.5 - 5.0 mmol/L [facility] Comment: Please note: ??Patients with WBC >100,000 may have falsely elevated Potassium levels. ??For accurate Potassium quantification in these patients send serum separator tube (gold top) for subsequent determinations. ??Contact the Clinical Chemistry Laboratory if there are any questions. Chloride 106 98 - 107 mmol/L [facility] Carbon Dioxide 19(L) 22 - 31 mmol/L [facility] Anion Gap 13 5 - 15 mmol/L [facility] Calcium 8.0(L) 8.5 - 10.5 mg/dL [facility] Est Glomerular Filtration Rate 31(L) >=60 mL/min/1. 73 m?? [facility] Comment: The eGFR was calculated using the CKD-EPI equation. As with all creatinine based estimates of kidney function, eGFR values calculated with the CKD-EPI equation are not accurate in patients with acute kidney failure, extremes of body mass or the acutely ill. [email or web address] eGFR 35(L) >=60 mL/min/1. 73 m?? [facility] Comment: The eGFR was calculated using the CKD-EPI equation. As with all creatinine based estimates of kidney function, eGFR values calculated with the CKD-EPI equation are not accurate in patients with acute kidney failure, extremes of body mass or the acutely ill. [email or web address] Blood specimen (specimen) 04/22/2018 5:34 AM EDT 04/22/2018 5:51 AM EDT Narrative Resulting Agency Comment Spec In Lab Hay Sparks MD CHEMISTRY ORDERABLES [facility] [place] [address] * Blood culture (04/21/2018 6:05 AM EDT) Blood Culture No growth at 5 days. [facility] Blood specimen (specimen) STRUCTURE OF RIGHT HAND / Unknown 04/21/2018 6:05 AM EDT 04/21/2018 8:01 AM EDT Narrative Resulting Agency Comment Spec In Lab Chase Olvera MD MICROBIOLOGY - BL OOD ORDERABLES [facility] [place] [address] * Blood culture (04/21/2018 5:50 AM EDT) Blood Culture No growth at 5 days. [facility] Blood specimen (specimen) ANTECUBITAL REGION STRUCTURE / Unknown 04/21/2018 5:50 AM EDT 04/21/2018 7:59 AM EDT Narrative Resulting Agency Comment Spec In Lab Chase Olvera MD MICROBIOLOGY - [place] [address] * Differential, Automated (04/21/2018 5:50 AM EDT) Neutrophil % 66.9 % [facility] Neutrophil Absolute 3.88 1.70 - 6.10 x10(3)/[facility] LABORATORY Lymph % 16.8 % [facility] Lymphocytes Abs 1.0 0.9 - 3.2 x10(3)/[facility] LABORATORY Monocyte % 8.8 % [facility] Monocyte Abs 0.5 0.3 - 0.9 x10(3)/[facility] LABORATORY Eos % 5.9 % [facility] Eosinophils Abs 0.3 0.0 - 0.4 x10(3)/[facility] LABORATORY Basophil % 0.9 % [facility] Baso Absolute 0.0 0.0 - 0.1 x10(3)/[facility] LABORATORY Immature Gran % 0.70 % [facility] Comment: Immature granulocytes(IG's)percentage and absolute count will include metamyelocytes, myelocytes, and promyelocytes. Blood smears from CBCs yielding IG's will be scanned manually for concordance. If this scan disagrees with the automated IG or if promyelocytes are noted, a manual differential will be performed. Immature Gran Absolute 0.04 0.00 - 0.04 x10(3)/[facility] LABORATORY Blood specimen (specimen) 04/21/2018 5:50 AM EDT 04/21/2018 6:29 AM EDT Narrative Resulting Agency Comment Spec In Lab Apple Gutierrez MD HEMATOLOGY ORDERABLE S [facility] [address] * (ABNORMAL) Hemogram (04/21/2018 5:50 AM EDT) [facility] White Blood Cell 5.8 4.0 - 9.5 x10(3)/[facility] LABORATORY Red Blood Cell 2.55(L) 4.58 - 5.54 x10(6)/[facility]ORATORY Hemoglobin 7.7(L) 13.7 - 16.5 gm/dL [facility] Hematocrit 24.2(L) 40.5 - 48.5 % [facility] Mean Cell Volume 94.9(H) 82.9 - 93.1 [facility] Mean Cell Hemoglobin 30.2 27.5 - 32.1 pg [facility] Mean Cell Hemoglobin Concentration 31.8(L) 32.0 - 35.7 gm/dL [facility] Platelet 316 145 - 357 x10(3)/[facility] LABORATORY RDW Standard Deviation 56.2(H) 36.0 - 45.0 [facility] LABORATORY RDW coefficient of variation 16.0(H) 11.4 - 13.8 % [facility] Mean Platelet Volume 8.2 7.6 - 12.9 [facility]ORY NRBC% auto 0.0 % [facility] NRBC Absolute 0.000 0.000 - 0.000 x10(3)/[facility]ATORY Blood specimen (specimen) 04/21/2018 5:50 AM EDT 04/21/2018 6:29 AM EDT Narrative Resulting Agency Comment Spec In Lab Apple Gutierrez MD HEMATOLOGY ORDERABLE S [facility] [place] [address] * (ABNORMAL) Basic Metabolic Panel (non-fasting) (04/21/2018 5:50 AM EDT) Glucose 97 65 - 199 mg/dL [facility] Comment:Diabetes: >=200 mg/d L plus symptoms Blood Urea Nitrogen 34(H) 10 - 20 mg/dL [facility] Creatinine 2.30(H) 0.80 - 1.50 mg/dL [facility] Sodium 138 135 - 145 mmol/L [facility] Potassium 4.8 3.5 - 5.0 mmol/L [facility] Comment: Please note: ??Patients with WBC >100,000 may have falsely elevated Potassium levels. ??For accurate Potassium quantification in these patients send serum separator tube (gold top) for subsequent determinations. ??Contact the Clinical Chemistry Laboratory if there are any questions. Chloride 105 98 - 107 mmol/L [facility] Carbon Dioxide 21(L) 22 - 31 mmol/L [facility] Anion Gap 12 5 - 15 mmol/L [facility] Calcium 8.1(L) 8.5 - 10.5 mg/dL [facility] Est Glomerular Filtration Rate 31(L) >=60 mL/min/1. 73 m?? [facility] Comment: The eGFR was calculated using the CKD-EPI equation. As with all creatinine based estimates of kidney function, eGFR values calculated with the CKD-EPI equation are not accurate in patients with acute kidney failure, extremes of body mass or the acutely ill. [email or web address] eGFR 35(L) >=60 mL/min/1. 73 m?? [facility] Comment: The eGFR was calculated using the CKD-EPI equation. As with all creatinine based estimates of kidney function, eGFR values calculated with the CKD-EPI equation are not accurate in patients with acute kidney failure, extremes of body mass or the acutely ill. [email or web address] Blood specimen (specimen) 04/21/2018 5:50 AM EDT 04/21/2018 6:29 AM EDT Narrative Resulting Agency Comment Spec In Lab Hay Sparks MD CHEMISTRY ORDERABLES Performing Organization Address City/[facility]/ZIP Co de Phone Number [facility] [place] [address] * Differential, Automated (04/20/2018 5:48 AM EDT) Pathologist [facility] Neutrophil % 74.0 % [facility] Neutrophil Absolute 5.39 1.70 - 6.10 x10(3)/[facility] LABORATORY Lymph % 12.8 % [facility] Lymphocytes Abs 0.9 0.9 - 3.2 x10(3)/[facility]ORY Monocyte % 8.2 % [facility] Monocyte Abs 0.6 0.3 - 0.9 x10(3)/[facility]ORY Eos % 4.0 % [facility] Eosinophils Abs 0.3 0.0 - 0.4 x10(3)/[facility]ORY Basophil % 0.5 % [facility] Baso Absolute 0.0 0.0 - 0.1 x10(3)/[facility] LABORATORY Immature Gran % 0.50 % [facility] Comment: Immature granulocytes(IG's)percentage and absolute count will include metamyelocytes, myelocytes, and promyelocytes. Blood smears from CBCs yielding IG's will be scanned manually for concordance. If this scan disagrees with the automated IG or if promyelocytes are noted, a manual differential will be performed. Immature Gran Absolute 0.04 0.00 - 0.04 x10(3)/[facility] LAB[facility]ATORY Blood specimen (specimen) 04/20/2018 5:48 AM EDT 04/20/2018 6:06 AM EDT Narrative Resulting Agency Comment Spec In Lab Apple Gutierrez MD HEMATOLOGY ORDERABLE S [facility] [place] [address] * (ABNORMAL) Hemogram (04/20/2018 5:48 AM EDT) White Blood Cell 7.3 4.0 - 9.5 x10(3)/mc L [facility] Red Blood Cell 2.53(L) 4.58 - 5.54 x10(6)/mc L [facility] Hemoglobin 7.8(L) 13.7 - 16.5 gm/dL [facility] Hematocrit 23.7(L) 40.5 - 48.5 % [facility] Mean Cell Volume 93.7(H) 82.9 - 93.1 fL [facility] Mean Cell Hemoglobin 30.8 27.5 - 32.1 pg [facility] Mean Cell Hemoglobin Concentration 32.9 32.0 - 35.7 gm/dL [facility] Platelet 302 145 - 357 x10(3)/[facility] LABORATORY RDW Standard Deviation 54.4(H) 36.0 - 45.0 [facility] LABORATORY RDW coefficient of variation 15.9(H) 11.4 - 13.8 % [facility] Mean Platelet Volume 8.5 7.6 - 12.9 [facility] LAB[facility]ORY NRBC% auto 0.0 % [facility] NRBC Absolute 0.000 0.000 - 0.000 x10(3)/ L [facility] Blood specimen (specimen) 04/20/2018 5:48 AM EDT 04/20/2018 6:06 AM EDT Narrative Resulting Agency Comment Spec In Lab Apple Gutierrez MD HEMATOLOGY ORDERABLE S [facility] [place] [address] * APTT (04/20/2018 5:48 AM EDT) Partial Thromboplastin Time 27 25 - 37 sec [facility] Comment: The PTT is NOT appropriate for heparin monitoring. Use the Anti-Xa level for heparin monitoring (HEP UFH) or LMWH monitoring (HEP LMW). A PTT less than 37 seconds generally indicates adequate hemostasis. Blood specimen (specimen) 04/20/2018 5:48 AM EDT 04/20/2018 6:06 AM EDT Narrative Resulting Agency Comment Spec In Lab Chase Olvera MD HEMATOLOGY ORDERA BLES Performing Organization Address [facility] de Phone Number [facility] [place] [address] * Prothrombin Time (04/20/2018 5:48 AM EDT) Prothrombin Time 11.6 9.4 - 12.5 sec [facility] International Normalization Ratio 1.0 [facility] Comment: An INR <2.0 indicates [...] MD HEMATOLOGY ORDERA BLES Performing Organization Address [facility] de Phone Number [facility] [place] [address] * (ABNORMAL) Basic Metabolic Panel (non-fasting) (04/20/2018 5:48 AM EDT) Glucose 103 65 - 199 mg/dL [facility] Comment:Diabetes: >=200 mg/d L plus symptoms Blood Urea Nitrogen 33(H) 10 - 20 mg/dL [facility] Creatinine 2.38(H) 0.80 - 1.50 mg/dL [facility] Sodium 138 135 - 145 mmol/L [facility] Potassium 4.7 3.5 - 5.0 mmol/L [facility] Comment: Please note: ??Patients with WBC >100,000 may have falsely elevated Potassium levels. ??For accurate Potassium quantification in these patients send serum separator tube (gold top) for subsequent determinations. ??Contact the Clinical Chemistry Laboratory if there are any questions. Chloride 104 98 - 107 mmol/L [facility] Carbon Dioxide 21(L) 22 - 31 mmol/L [facility] Anion Gap 13 5 - 15 mmol/L [facility] Calcium 8.0(L) 8.5 - 10.5 mg/dL [facility] Est Glomerular Filtration Rate 29(L) >=60 mL/min/1. 73 m?? [facility] Comment: The eGFR was calculated using the CKD-EPI equation. As with all creatinine based estimates of kidney function, eGFR values calculated with the CKD-EPI equation are not accurate in patients with acute kidney failure, extremes of body mass or the acutely ill. [email or web address] eGFR 34(L) >=60 mL/min/1. 73 m?? [facility] Comment: The eGFR was calculated using the CKD-EPI equation. As with all creatinine based estimates of kidney function, eGFR values calculated with the CKD-EPI equation are not accurate in patients with acute kidney failure, extremes of body mass or the acutely ill. [email or web address] Blood specimen (specimen) 04/20/2018 5:48 AM EDT 04/20/2018 6:06 AM EDT Narrative Resulting Agency Comment Spec In Lab Hay Sparks MD CHEMISTRY ORDERABLES [facility] [place] [address] * Anaerobic Culture (04/19/2018 9:25 AM EDT) Anaerobic Culture No anaerobic organisms isolated [facility] Skin (tissue) specimen (specimen) 04/19/2018 9:25 AM EDT 04/19/2018 9:37 AM EDT Comment:LEFT ARM SNUFFBOX PS EUDOANEURYSM FOR AEROBIC, ANAEROBIC, GRAM STAIN Narrative Resulting Agency Comment Spec In Lab Odalis Elias MD MICROBIOLOGY - GENERAL ORDERABLES Performing Organization Address City/[facility]/ZIP Co de Phone Number [facility] [place] [address] * (ABNORMAL) Tissue culture (04/19/2018 9:25 AM EDT) Pathologist [facility] Tissue Culture Rare Corynebacterium species : possible contaminant(A) [facility] Gram Stain Many Neutrophils seen Rare Gram Negative Rods seen (A) [facility] Organism Gram Negative Rods(A) [facility] Skin (tissue) specimen (specimen) 04/19/2018 9:25 AM EDT 04/19/2018 9:37 AM EDT Comment:LEFT ARM SNUFFBOX PS EUDOANEURYSM FOR AEROBIC, ANAEROBIC, GRAM STAIN Narrative Resulting Agency Comment Spec In Lab Odalis Elias MD MICROBIOLOGY - GENERAL ORDERABLES Performing Organization Address City/[facility] Co de Phone Number [facility] [place] [address] * Differential, Automated (04/19/2018 6:25 AM EDT) Neutrophil % 68.5 % [facility] Neutrophil Absolute 3.75 1.70 - 6.10 x10(3)/[facility] LABOR[facility] Lymph % 17.3 % [facility] Lymphocytes Abs 1.0 0.9 - 3.2 x10(3)/[facility]ORY Monocyte % 9.3 % [facility] Monocyte Abs 0.5 0.3 - 0.9 x10(3)/[facility] Eos % 4.0 % [facility] Eosinophils Abs 0.2 0.0 - 0.4 x10(3)/[facility] Basophil % 0.7 % [facility] Baso Absolute 0.0 0.0 - 0.1 x10(3)/[facility] Immature Gran % 0.20 % [facility] Comment: Immature granulocytes(IG's)percentage and absolute count will include metamyelocytes, myelocytes, and promyelocytes. Blood smears from CBCs yielding IG's will be scanned manually for concordance. If this scan disagrees with the automated IG or if promyelocytes are noted, a manual differential will be performed. Immature Gran Absolute 0.01 0.00 - 0.04 x10(3)/[facility] Blood specimen (specimen) 04/19/2018 6:25 AM EDT 04/19/2018 6:32 AM EDT Narrative Resulting Agency Comment Spec In Lab Apple Gutierrez MD HEMATOLOGY ORDERABLE S [facility] [place] [address] * (ABNORMAL) Hemogram (04/19/2018 6:25 AM EDT) White Blood Cell 5.5 4.0 - 9.5 x10(3)/[facility]ORY Red Blood Cell 2.52(L) 4.58 - 5.54 x10(6)/[facility]ORY Hemoglobin 7.7(L) 13.7 - 16.5 gm/dL [facility] Hematocrit 23.3(L) 40.5 - 48.5 % [facility] Mean Cell Volume 92.5 82.9 - 93.1 fL [facility] Mean Cell Hemoglobin 30.6 27.5 - 32.1 pg [facility] Mean Cell Hemoglobin Concentration 33.0 32.0 - 35.7 gm/dL [facility] Platelet 274 145 - 357 x10(3)/[facility]ORY RDW Standard Deviation 53.1(H) 36.0 - 45.0 fL [facility] RDW coefficient of variation 15.6(H) 11.4 - 13.8 % [facility] Mean Platelet Volume 8.3 7.6 - 12.9 fL [facility] NRBC% auto 0.0 % [facility] NRBC Absolute 0.000 0.000 - 0.000 x10(3)/mc L [facility] Blood specimen (specimen) 04/19/2018 6:25 AM EDT 04/19/2018 6:32 AM EDT Narrative Resulting Agency Comment Spec In Lab Apple Gutierrez MD HEMATOLOGY ORDERABLE S Performing Organization Address [facility]/ZIP Co de Phone Number [facility] [place] [address] * APTT (04/19/2018 6:25 AM EDT) Partial Thromboplastin Time 27 25 - 37 sec [facility] Comment: The PTT is NOT appropriate for heparin monitoring. Use the Anti-Xa level for heparin monitoring (HEP UFH) or LMWH monitoring (HEP LMW). A PTT less than 37 seconds generally indicates adequate hemostasis. Blood specimen (specimen) 04/19/2018 6:25 AM EDT 04/19/2018 6:32 AM EDT Narrative Resulting Agency Comment Spec In Lab Chase Olvera MD HEMATOLOGY ORDERA BLES Performing Organization Address City/[facility] Co de Phone Number [facility] [place] [address] * Prothrombin Time (04/19/2018 6:25 AM EDT) Prothrombin Time 11.5 9.4 - 12.5 sec [facility] International Normalization Ratio 1.0 [facility] Comment: An INR <2.0 indicates [...] Lab Chase Olvera MD HEMATOLOGY ORDERA BLES [facility] [place] [address] * (ABNORMAL) Basic Metabolic Panel (non-fasting) (04/19/2018 6:25 AM EDT) Glucose 100 65 - 199 mg/dL [facility] Comment:Diabetes: >=200 mg/d L plus symptoms Blood Urea Nitrogen 35(H) 10 - 20 mg/dL [facility] Creatinine 2.12(H) 0.80 - 1.50 mg/dL [facility] Sodium 137 135 - 145 mmol/L [facility] Potassium 4.7 3.5 - 5.0 mmol/L [facility] Comment: Please note: ??Patients with WBC >100,000 may have falsely elevated Potassium levels. ??For accurate Potassium quantification in these patients send serum separator tube (gold top) for subsequent determinations. ??Contact the Clinical Chemistry Laboratory if there are any questions. Chloride 104 98 - 107 mmol/L [facility] Carbon Dioxide 21(L) 22 - 31 mmol/L [facility] Anion Gap 12 5 - 15 mmol/L [facility] Calcium 8.0(L) 8.5 - 10.5 mg/dL [facility] Est Glomerular Filtration Rate 34(L) >=60 mL/min/1. 73 m?? [facility] Comment: The eGFR was calculated using the CKD-EPI equation. As with all creatinine based estimates of kidney function, eGFR values calculated with the CKD-EPI equation are not accurate in patients with acute kidney failure, extremes of body mass or the acutely ill. [email or web address] eGFR 39(L) >=60 mL/min/1. 73 m?? [facility] Comment: The eGFR was calculated using the CKD-EPI equation. As with all creatinine based estimates of kidney function, eGFR values calculated with the CKD-EPI equation are not accurate in patients with acute kidney failure, extremes of body mass or the acutely ill. [email or web address] Blood specimen (specimen) 04/19/2018 6:25 AM EDT 04/19/2018 6:32 AM EDT Narrative Resulting Agency Comment Spec In Lab Hay Sparks MD CHEMISTRY ORDERABLES Performing Organization Address [facility] de Phone Number [facility] [place] [address] * Tacrolimus level (04/19/2018 6:25 AM EDT) Tacrolimus 2.8 ng/mL [facility] Comment: Trough therapeutic: ??5-15 ng/mL Performed by ultra-performance liquid chromatography tandem mass spectrometry (UPLCMS/MS). This test was developed and its performance characteristics determined by [facility]. It has not been cleared or [...] MD CHEMISTRY ORDERAB LES Performing Organization Address [facility] Co de Phone Number [facility] [place] [address] * AVF/Established Access Evaluation (04/18/2018 1:29 PM EDT) VB Text Report Department: Vascular Surgery Lab Patient: [id number] (CHRISTY AMBROSE) CPT: 63133 ICD10: N18.6;R57.8 Referring Physician: CHASE OLVERA ?? [...] 5:26 AM EDT) Neutrophil % 67.3 % [facility] Neutrophil Absolute 4.29 1.70 - 6.10 x10(3)/[facility] LABORATORY Lymph % 19.6 % [facility] Lymphocytes Abs 1.2 0.9 - 3.2 x10(3)/[facility]ORY Monocyte % 8.2 % [facility] Monocyte Abs 0.5 0.3 - 0.9 x10(3)/[facility] Eos % 3.9 % [facility] Eosinophils Abs 0.2 0.0 - 0.4 x10(3)/[facility] Basophil % 0.5 % [facility] Baso Absolute 0.0 0.0 - 0.1 x10(3)/[facility] Immature Gran % 0.50 % [facility] Comment: Immature granulocytes(IG's)percentage and absolute count will include metamyelocytes, myelocytes, and promyelocytes. Blood smears from CBCs yielding IG's will be scanned manually for concordance. If this scan disagrees with the automated IG or if promyelocytes are noted, a manual differential will be performed. Immature Gran Absolute 0.03 0.00 - 0.04 x10(3)/[facility] Blood specimen (specimen) 04/18/2018 5:26 AM EDT 04/18/2018 5:39 AM EDT Narrative Resulting Agency Comment Spec In Lab Apple Gutierrez MD HEMATOLOGY ORDERABLE S [facility] [place] [address] * (ABNORMAL) Hemogram (04/18/2018 5:26 AM EDT) White Blood Cell 6.4 4.0 - 9.5 x10(3)/mc L [facility] Red Blood Cell 2.65(L) 4.58 - 5.54 x10(6)/mc L [facility] Hemoglobin 8.0(L) 13.7 - 16.5 gm/dL [facility] Hematocrit 24.6(L) 40.5 - 48.5 % [facility] Mean Cell Volume 92.8 82.9 - 93.1 fL [facility] Mean Cell Hemoglobin 30.2 27.5 - 32.1 pg [facility] Mean Cell Hemoglobin Concentration 32.5 32.0 - 35.7 gm/dL [facility] Platelet 305 145 - 357 x10(3)/mc L [facility] RDW Standard Deviation 53.2(H) 36.0 - 45.0 fL [facility] RDW coefficient of variation 15.7(H) 11.4 - 13.8 % [facility] Mean Platelet Volume 8.3 7.6 - 12.9 fL [facility] NRBC% auto 0.0 % [facility] LABORATORY NRBC Absolute 0.000 0.000 - 0.000 x10(3)/mc L [facility] Blood specimen (specimen) 04/18/2018 5:26 AM EDT 04/18/2018 5:39 AM EDT Narrative Resulting Agency Comment Spec In Lab Apple Gutierrez MD HEMATOLOGY ORDERABLE S Performing Organization Address [facility]/ZIP Co de Phone Number [facility] [place] [address] * APTT (04/18/2018 5:26 AM EDT) Partial Thromboplastin Time 27 25 - 37 sec [facility] Comment: The PTT is NOT appropriate for heparin monitoring. Use the Anti-Xa level for heparin monitoring (HEP UFH) or LMWH monitoring (HEP LMW). A PTT less than 37 seconds generally indicates adequate hemostasis. Blood specimen (specimen) 04/18/2018 5:26 AM EDT 04/18/2018 5:39 AM EDT Narrative Resulting Agency Comment Spec In Lab Chase Olvera MD HEMATOLOGY ORDERA BLES Performing Organization Address City/[facility]/ZIP Co de Phone Number [facility] [place] [address] * Prothrombin Time (04/18/2018 5:26 AM EDT) Prothrombin Time 11.2 9.4 - 12.5 sec [facility] International Normalization Ratio 1.0 [facility] Comment: An INR <2.0 indicates [...] Lab Chase Olvera MD HEMATOLOGY ORDERA BLES [facility] [place] [address] * (ABNORMAL) Basic Metabolic Panel (non-fasting) (04/18/2018 5:26 AM EDT) Glucose 103 65 - 199 mg/dL [facility] Comment:Diabetes: >=200 mg/d L plus symptoms Blood Urea Nitrogen 36(H) 10 - 20 mg/dL [facility] Creatinine 2.30(H) 0.80 - 1.50 mg/dL [facility] Sodium 135 135 - 145 mmol/L [facility] Potassium 4.3 3.5 - 5.0 mmol/L [facility] Comment: Please note: ??Patients with WBC >100,000 may have falsely elevated Potassium levels. ??For accurate Potassium quantification in these patients send serum separator tube (gold top) for subsequent determinations. ??Contact the Clinical Chemistry Laboratory if there are any questions. Chloride 104 98 - 107 mmol/L [facility] Carbon Dioxide 20(L) 22 - 31 mmol/L [facility] Anion Gap 11 5 - 15 mmol/L [facility] Calcium 8.3(L) 8.5 - 10.5 mg/dL [facility] Est Glomerular Filtration Rate 31(L) >=60 mL/min/1. 73 m?? [facility] Comment: The eGFR was calculated using the CKD-EPI equation. As with all creatinine based estimates of kidney function, eGFR values calculated with the CKD-EPI equation are not accurate in patients with acute kidney failure, extremes of body mass or the acutely ill. [email or web address] eGFR 35(L) >=60 mL/min/1. 73 m?? [facility] Comment: The eGFR was calculated using the CKD-EPI equation. As with all creatinine based estimates of kidney function, eGFR values calculated with the CKD-EPI equation are not accurate in patients with acute kidney failure, extremes of body mass or the acutely ill. [email or web address] Blood specimen (specimen) 04/18/2018 5:26 AM EDT 04/18/2018 5:39 AM EDT Narrative Resulting Agency Comment Spec In Lab Hay Sparks MD CHEMISTRY ORDERABLES Performing Organization Address City/[facility]/ZIP Co de Phone Number [facility] [place] [address] * ABORH Recheck Status (04/17/2018 9:07 AM EDT) ABORH Type Recheck Completed [facility] Blood specimen (specimen) 04/17/2018 9:07 AM EDT 04/17/2018 9:22 AM EDT Narrative Resulting Agency Comment Spec In Lab Tim Ogden MD BLOOD BANK LAB ORDOctaviano CALERO Performing Organization Address City/[facility]/ZIP Co de Phone Number [facility] [place] [address] * Antibody screen (04/17/2018 9:07 AM EDT) Ab Screen Interp Negative [facility] Expires at [id number] on: 04/20/2018 [facility] Blood specimen (specimen) 04/17/2018 9:07 AM EDT 04/17/2018 9:22 AM EDT Narrative Resulting Agency Comment Spec In Lab Tim Ogden MD BLOOD BANK LAB ORDE RABKAYDEN [facility] [place] [address] * ABO/Rh Typing (04/17/2018 9:07 AM EDT) ABORH Type A Pos [facility] Blood specimen (specimen) 04/17/2018 9:07 AM EDT 04/17/2018 9:22 AM EDT Narrative Resulting Agency Comment Spec In Lab Tim Ogden MD BLOOD BANK LAB RYAN CALERO Performing Organization Address City/[facility]/ZIP Co de Phone Number [facility] [place] [address] * Differential, Automated (04/17/2018 4:43 AM EDT) Pathologist [facility] Neutrophil % 64.8 % [facility] Neutrophil Absolute 3.62 1.70 - 6.10 x10(3)/[facility] LABORATORY Lymph % 18.6 % [facility] Lymphocytes Abs 1.0 0.9 - 3.2 x10(3)/[facility] LABORATORY Monocyte % 10.0 % [facility] Monocyte Abs 0.6 0.3 - 0.9 x10(3)/[facility] LABORATORY Eos % 5.0 % [facility] Eosinophils Abs 0.3 0.0 - 0.4 x10(3)/[facility] Basophil % 0.9 % [facility] Baso Absolute 0.0 0.0 - 0.1 x10(3)/[facility] LABORATORY Immature Gran % 0.70 % [facility] Comment: Immature granulocytes(IG's)percentage and absolute count will include metamyelocytes, myelocytes, and promyelocytes. Blood smears from CBCs yielding IG's will be scanned manually for concordance. If this scan disagrees with the automated IG or if promyelocytes are noted, a manual differential will be performed. Immature Gran Absolute 0.04 0.00 - 0.04 x10(3)/[facility] Blood specimen (specimen) 04/17/2018 4:43 AM EDT 04/17/2018 5:09 AM EDT Narrative Resulting Agency Comment Spec In Lab Apple Gutierrez MD HEMATOLOGY ORDERABLE S [facility] [place] [address] * (ABNORMAL) Hemogram (04/17/2018 4:43 AM EDT) White Blood Cell 5.6 4.0 - 9.5 x10(3)/[facility] LABORATORY Red Blood Cell 2.47(L) 4.58 - 5.54 x10(6)/[facility]ATORY Hemoglobin 7.5(L) 13.7 - 16.5 gm/dL [facility] Hematocrit 22.9(L) 40.5 - 48.5 % [facility] Mean Cell Volume 92.7 82.9 - 93.1 [facility] Mean Cell Hemoglobin 30.4 27.5 - 32.1 pg [facility] Mean Cell Hemoglobin Concentration 32.8 32.0 - 35.7 gm/dL [facility] Platelet 282 145 - 357 x10(3)/[facility]ORATORY RDW Standard Deviation 53.0(H) 36.0 - 45.0 [facility] RDW coefficient of variation 15.6(H) 11.4 - 13.8 % [facility] Mean Platelet Volume 8.3 7.6 - 12.9 [facility] NRBC% auto 0.0 % [facility] NRBC Absolute 0.000 0.000 - 0.000 x10(3)/[facility] Blood specimen (specimen) 04/17/2018 4:43 AM EDT 04/17/2018 5:09 AM EDT Narrative Resulting Agency Comment Spec In Lab Apple Gutierrez MD HEMATOLOGY ORDERABLE S Performing Organization Address [facility] Co de Phone Number [facility] [place] [address] * APTT (04/17/2018 4:43 AM EDT) Partial Thromboplastin Time 27 25 - 37 sec [facility] Comment: The PTT is NOT appropriate for heparin monitoring. Use the Anti-Xa level for heparin monitoring (HEP UFH) or LMWH monitoring (HEP LMW). A PTT less than 37 seconds generally indicates adequate hemostasis. Blood specimen (specimen) 04/17/2018 4:43 AM EDT 04/17/2018 5:09 AM EDT Narrative Resulting Agency Comment Spec In Lab Chase Olvera MD HEMATOLOGY ORDERA BLES Performing Organization Address [facility] Co de Phone Number [facility] [place] [address] * Prothrombin Time (04/17/2018 4:43 AM EDT) Prothrombin Time 11.7 9.4 - 12.5 sec [facility] International Normalization Ratio 1.0 [facility] Comment: An INR <2.0 indicates [...] MD HEMATOLOGY ORDERA BLES Performing Organization Address [facility] Co de Phone Number [facility] [place] [address] * (ABNORMAL) Basic Metabolic Panel (non-fasting) (04/17/2018 4:43 AM EDT) Glucose 100 65 - 199 mg/dL [facility] Comment:Diabetes: >=200 mg/d L plus symptoms Blood Urea Nitrogen 32(H) 10 - 20 mg/dL [facility] Creatinine 2.27(H) 0.80 - 1.50 mg/dL [facility] Sodium 135 135 - 145 mmol/L [facility] Potassium 4.1 3.5 - 5.0 mmol/L [facility] Comment: Please note: ??Patients with WBC >100,000 may have falsely elevated Potassium levels. ??For accurate Potassium quantification in these patients send serum separator tube (gold top) for subsequent determinations. ??Contact the Clinical Chemistry Laboratory if there are any questions. Chloride 104 98 - 107 mmol/L [facility] Carbon Dioxide 19(L) 22 - 31 mmol/L [facility] Anion Gap 12 5 - 15 mmol/L [facility] Calcium 7.7(L) 8.5 - 10.5 mg/dL [facility] Est Glomerular Filtration Rate 31(L) >=60 mL/min/1. 73 m?? [facility] Comment: The eGFR was calculated using the CKD-EPI equation. As with all creatinine based estimates of kidney function, eGFR values calculated with the CKD-EPI equation are not accurate in patients with acute kidney failure, extremes of body mass or the acutely ill. [email or web address] eGFR 36(L) >=60 mL/min/1. 73 m?? [facility] Comment: The eGFR was calculated using the CKD-EPI equation. As with all creatinine based estimates of kidney function, eGFR values calculated with the CKD-EPI equation are not accurate in patients with acute kidney failure, extremes of body mass or the acutely ill. [email or web address] Blood specimen (specimen) 04/17/2018 4:43 AM EDT 04/17/2018 5:09 AM EDT Narrative Resulting Agency Comment Spec In Lab Hay Sparks MD CHEMISTRY ORDERABLES Performing Organization Address City/[facility]/[place] [address] * (ABNORMAL) Differential, Automated (04/16/2018 4:17 AM EDT) Neutrophil % 59.4 % [facility] Neutrophil Absolute 3.07 1.70 - 6.10 x10(3)/ L [facility] Lymph % 24.4 % [facility] Lymphocytes Abs 1.3 0.9 - 3.2 x10(3)/[facility] LABORATORY Monocyte % 10.3 % [facility] Monocyte Abs 0.5 0.3 - 0.9 x10(3)/[facility] LABORATORY Eos % 4.5 % [facility] Eosinophils Abs 0.2 0.0 - 0.4 x10(3)/[facility] LABORATORY Basophil % 0.4 % [facility] Baso Absolute 0.0 0.0 - 0.1 x10(3)/[facility] Immature Gran % 1.00 % [facility] Comment: Immature granulocytes(IG's)percentage and absolute count will include metamyelocytes, myelocytes, and promyelocytes. Blood smears from CBCs yielding IG's will be scanned manually for concordance. If this scan disagrees with the automated IG or if promyelocytes are noted, a manual differential will be performed. Immature Gran Absolute 0.05(H) 0.00 - 0.04 x10(3)/ L [facility] Blood specimen (specimen) 04/16/2018 4:17 AM EDT 04/16/2018 4:52 AM EDT Narrative Resulting Agency Comment Spec In Lab Apple Gutierrez MD HEMATOLOGY ORDERABLE S Performing Organization Address City/[facility]/[place] [address] * (ABNORMAL) Hemogram (04/16/2018 4:17 AM EDT) White Blood Cell 5.2 4.0 - 9.5 x10(3)/[facility] LABORATORY Red Blood Cell 2.62(L) 4.58 - 5.54 x10(6)/[facility] Hemoglobin 7.9(L) 13.7 - 16.5 gm/dL [facility] Hematocrit 24.9(L) 40.5 - 48.5 % [facility] Mean Cell Volume 95.0(H) 82.9 - 93.1 [facility] Mean Cell Hemoglobin 30.2 27.5 - 32.1 pg [facility] Mean Cell Hemoglobin Concentration 31.7(L) 32.0 - 35.7 gm/dL [facility] Platelet 288 145 - 357 x10(3)/[facility] LABORATORY RDW Standard Deviation 52.6(H) 36.0 - 45.0 [facility] RDW coefficient of variation 15.4(H) 11.4 - 13.8 % [facility] Mean Platelet Volume 8.5 7.6 - 12.9 [facility] NRBC% auto 0.0 % [facility] NRBC Absolute 0.000 0.000 - 0.000 x10(3)/[facility] Blood specimen (specimen) 04/16/2018 4:17 AM EDT 04/16/2018 4:52 AM EDT Narrative Resulting Agency Comment Spec In Lab Apple Gutierrez MD HEMATOLOGY ORDERABLE S [facility] [place] [address] * APTT (04/16/2018 4:17 AM EDT) Pathologist [facility] Partial Thromboplastin Time 27 25 - 37 sec [facility] Comment: The PTT is NOT appropriate for heparin monitoring. Use the Anti-Xa level for heparin monitoring (HEP UFH) or LMWH monitoring (HEP LMW). A PTT less than 37 seconds generally indicates adequate hemostasis. Blood specimen (specimen) 04/16/2018 4:17 AM EDT 04/16/2018 4:52 AM EDT Narrative Resulting Agency Comment Spec In Lab Chase Olvera MD HEMATOLOGY ORDERA BLES Performing Organization Address [facility] de Phone Number [facility] [place] [address] * Prothrombin Time (04/16/2018 4:17 AM EDT) Prothrombin Time 11.5 9.4 - 12.5 sec [facility] International Normalization Ratio 1.0 [facility] Comment: An INR <2.0 indicates [...] MD HEMATOLOGY ORDERA BLES Performing Organization Address [facility] de Phone Number [facility] [place] [address] * (ABNORMAL) Basic Metabolic Panel (non-fasting) (04/16/2018 4:17 AM EDT) Glucose 108 65 - 199 mg/dL [facility] Comment:Diabetes: >=200 mg/d L plus symptoms Blood Urea Nitrogen 31(H) 10 - 20 mg/dL [facility] Creatinine 2.27(H) 0.80 - 1.50 mg/dL [facility] Sodium 135 135 - 145 mmol/L [facility] Potassium 4.0 3.5 - 5.0 mmol/L [facility] Comment: Please note: ??Patients with WBC >100,000 may have falsely elevated Potassium levels. ??For accurate Potassium quantification in these patients send serum separator tube (gold top) for subsequent determinations. ??Contact the Clinical Chemistry Laboratory if there are any questions. Chloride 103 98 - 107 mmol/L [facility] Carbon Dioxide 20(L) 22 - 31 mmol/L [facility] Anion Gap 12 5 - 15 mmol/L [facility] Calcium 7.7(L) 8.5 - 10.5 mg/dL [facility] Est Glomerular Filtration Rate 31(L) >=60 mL/min/1. 73 m?? [facility] Comment: The eGFR was calculated using the CKD-EPI equation. As with all creatinine based estimates of kidney function, eGFR values calculated with the CKD-EPI equation are not accurate in patients with acute kidney failure, extremes of body mass or the acutely ill. [email or web address] eGFR 36(L) >=60 mL/min/1. 73 m?? [facility] Comment: The eGFR was calculated using the CKD-EPI equation. As with all creatinine based estimates of kidney function, eGFR values calculated with the CKD-EPI equation are not accurate in patients with acute kidney failure, extremes of body mass or the acutely ill. [email or web address] Blood specimen (specimen) 04/16/2018 4:17 AM EDT 04/16/2018 4:52 AM EDT Narrative Resulting Agency Comment Spec In Lab Hay Sparks MD CHEMISTRY ORDERABLES [facility] [place] [address] * APTT (04/15/2018 4:57 AM EDT) Partial Thromboplastin Time 27 25 - 37 sec [facility] Comment: The PTT is NOT appropriate for heparin monitoring. Use the Anti-Xa level for heparin monitoring (HEP UFH) or LMWH monitoring (HEP LMW). A PTT less than 37 seconds generally indicates adequate hemostasis. Blood specimen (specimen) 04/15/2018 4:57 AM EDT 04/15/2018 5:23 AM EDT Narrative Resulting Agency Comment Spec In Lab Chase Olvera MD HEMATOLOGY ORDERA BLES Performing Organization Address [facility] Co de Phone Number [facility] [place] [address] * (ABNORMAL) Prothrombin Time (04/15/2018 4:57 AM EDT) Prothrombin Time 12.9(H) 9.4 - 12.5 sec [facility] International Normalization Ratio 1.2 [facility] Comment: An INR <2.0 indicates [...] MD HEMATOLOGY ORDERA BLES Performing Organization Address [facility] Co de Phone Number [facility] [place] [address] * Differential, Automated (04/15/2018 4:47 AM EDT) Neutrophil % 59.8 % [facility] Neutrophil Absolute 2.98 1.70 - 6.10 x10(3)/[facility] LABOR[facility] Lymph % 22.4 % [facility] Lymphocytes Abs 1.1 0.9 - 3.2 x10(3)/[facility] Monocyte % 11.2 % [facility] Monocyte Abs 0.6 0.3 - 0.9 x10(3)/[facility] Eos % 5.6 % [facility] Eosinophils Abs 0.3 0.0 - 0.4 x10(3)/[facility] Basophil % 0.4 % [facility] Baso Absolute 0.0 0.0 - 0.1 x10(3)/[facility]OR[facility] Immature Gran % 0.60 % [facility] Comment: Immature granulocytes(IG's)percentage and absolute count will include metamyelocytes, myelocytes, and promyelocytes. Blood smears from CBCs yielding IG's will be scanned manually for concordance. If this scan disagrees with the automated IG or if promyelocytes are noted, a manual differential will be performed. Immature Gran Absolute 0.03 0.00 - 0.04 x10(3)/[facility] Blood specimen (specimen) 04/15/2018 4:47 AM EDT 04/15/2018 4:56 AM EDT Narrative Resulting Agency Comment Spec In Lab Apple Gutierrez MD HEMATOLOGY ORDERABLE S [facility] [place] [address] * (ABNORMAL) Hemogram (04/15/2018 4:47 AM EDT) White Blood Cell 5.0 4.0 - 9.5 x10(3)/mc L [facility] Red Blood Cell 2.48(L) 4.58 - 5.54 x10(6)/mc L [facility] Hemoglobin 7.5(L) 13.7 - 16.5 gm/dL [facility] Hematocrit 23.3(L) 40.5 - 48.5 % [facility] Mean Cell Volume 94.0(H) 82.9 - 93.1 fL [facility] Mean Cell Hemoglobin 30.2 27.5 - 32.1 pg [facility] Mean Cell Hemoglobin Concentration 32.2 32.0 - 35.7 gm/dL [facility] Platelet 224 145 - 357 x10(3)/mc L [facility] RDW Standard Deviation 52.9(H) 36.0 - 45.0 fL [facility] RDW coefficient of variation 15.4(H) 11.4 - 13.8 % [facility] Mean Platelet Volume 8.3 7.6 - 12.9 fL [facility] NRBC% auto 0.0 % [facility] NRBC Absolute 0.000 0.000 - 0.000 x10(3)/mc L [facility] Blood specimen (specimen) 04/15/2018 4:47 AM EDT 04/15/2018 4:56 AM EDT Narrative Resulting Agency Comment Spec In Lab Apple Gutierrez MD HEMATOLOGY ORDERABLE S [facility] [place] [address] * (ABNORMAL) Basic Metabolic Panel (non-fasting) (04/15/2018 4:47 AM EDT) Glucose 105 65 - 199 mg/dL [facility] Comment:Diabetes: >=200 mg/d L plus symptoms Blood Urea Nitrogen 30(H) 10 - 20 mg/dL [facility] Creatinine 2.17(H) 0.80 - 1.50 mg/dL [facility] Sodium 138 135 - 145 mmol/L [facility] Potassium 4.6 3.5 - 5.0 mmol/L [facility] Comment: Please note: ??Patients with WBC >100,000 may have falsely elevated Potassium levels. ??For accurate Potassium quantification in these patients send serum separator tube (gold top) for subsequent determinations. ??Contact the Clinical Chemistry Laboratory if there are any questions. Chloride 105 98 - 107 mmol/L [facility] Carbon Dioxide 20(L) 22 - 31 mmol/L [facility] Anion Gap 13 5 - 15 mmol/L [facility] Calcium 7.6(L) 8.5 - 10.5 mg/dL [facility] Est Glomerular Filtration Rate 33(L) >=60 mL/min/1. 73 m?? [facility] Comment: The eGFR was calculated using the CKD-EPI equation. As with all creatinine based estimates of kidney function, eGFR values calculated with the CKD-EPI equation are not accurate in patients with acute kidney failure, extremes of body mass or the acutely ill. [email or web address] eGFR 38(L) >=60 mL/min/1. 73 m?? [facility] Comment: The eGFR was calculated using the CKD-EPI equation. As with all creatinine based estimates of kidney function, eGFR values calculated with the CKD-EPI equation are not accurate in patients with acute kidney failure, extremes of body mass or the acutely ill. [email or web address] Blood specimen (specimen) 04/15/2018 4:47 AM EDT 04/15/2018 4:56 AM EDT Narrative Resulting Agency Comment Spec In Lab Hay Sparks MD CHEMISTRY ORDERABLES [facility] [place] [address] * (ABNORMAL) Differential, Automated (04/14/2018 5:48 AM EDT) Neutrophil % 68.9 % [facility] Neutrophil Absolute 3.74 1.70 - 6.10 x10(3)/mc L [facility] Lymph % 15.7 % [facility] Lymphocytes Abs 0.8(L) 0.9 - 3.2 x10(3)/mc L [facility] Monocyte % 11.1 % [facility] Monocyte Abs 0.6 0.3 - 0.9 x10(3)/mc L [facility] Eos % 3.7 % [facility] Eosinophils Abs 0.2 0.0 - 0.4 x10(3)/[facility]ORATORY Basophil % 0.2 % [facility] Baso Absolute 0.0 0.0 - 0.1 x10(3)/[facility]OR[facility]ORY Immature Gran % 0.40 % [facility] Comment: Immature granulocytes(IG's)percentage and absolute count will include metamyelocytes, myelocytes, and promyelocytes. Blood smears from CBCs yielding IG's will be scanned manually for concordance. If this scan disagrees with the automated IG or if promyelocytes are noted, a manual differential will be performed. Immature Gran Absolute 0.02 0.00 - 0.04 x10(3)/[facility] LABORATORY Blood specimen (specimen) 04/14/2018 5:48 AM EDT 04/14/2018 5:59 AM EDT Narrative Resulting Agency Comment Spec In Lab Apple Gutierrez MD HEMATOLOGY ORDERABLE S [facility] [place] [address] * (ABNORMAL) Hemogram (04/14/2018 5:48 AM EDT) White Blood Cell 5.4 4.0 - 9.5 x10(3)/[facility] LABORATORY Red Blood Cell 2.48(L) 4.58 - 5.54 x10(6)/[facility] Hemoglobin 7.5(L) 13.7 - 16.5 gm/dL [facility] Hematocrit 22.9(L) 40.5 - 48.5 % [facility] Mean Cell Volume 92.3 82.9 - 93.1 fL [facility] Mean Cell Hemoglobin 30.2 27.5 - 32.1 pg [facility] Mean Cell Hemoglobin Concentration 32.8 32.0 - 35.7 gm/dL [facility] Platelet 208 145 - 357 x10(3)/mc L [facility] RDW Standard Deviation 51.8(H) 36.0 - 45.0 fL [facility] RDW coefficient of variation 15.4(H) 11.4 - 13.8 % [facility] Mean Platelet Volume 8.4 7.6 - 12.9 fL [facility] NRBC% auto 0.0 % [facility] NRBC Absolute 0.000 0.000 - 0.000 x10(3)/mc L [facility] Blood specimen (specimen) 04/14/2018 5:48 AM EDT 04/14/2018 5:59 AM EDT Narrative Resulting Agency Comment Spec In Lab Apple Gutierrez MD HEMATOLOGY ORDERABLE S Performing Organization Address [facility] [place] [address] * APTT (04/14/2018 5:48 AM EDT) Partial Thromboplastin Time 28 25 - 37 sec [facility] Comment: The PTT is NOT appropriate for heparin monitoring. Use the Anti-Xa level for heparin monitoring (HEP UFH) or LMWH monitoring (HEP LMW). A PTT less than 37 seconds generally indicates adequate hemostasis. Blood specimen (specimen) 04/14/2018 5:48 AM EDT 04/14/2018 5:59 AM EDT Narrative Resulting Agency Comment Spec In Lab Chase Olvera MD HEMATOLOGY ORDERA BLES Performing Organization Address City/[facility]/ZIP Co de Phone Number [facility] [place] [address] * (ABNORMAL) Prothrombin Time (04/14/2018 5:48 AM EDT) Prothrombin Time 15.1(H) 9.4 - 12.5 sec [facility] International Normalization Ratio 1.4 [facility] Comment: An INR <2.0 indicates [...] Lab Chase Olvera MD HEMATOLOGY ORDERA BLES [facility] [place] [address] * (ABNORMAL) Basic Metabolic Panel (non-fasting) (04/14/2018 5:48 AM EDT) Glucose 110 65 - 199 mg/dL [facility] Comment:Diabetes: >=200 mg/d L plus symptoms Blood Urea Nitrogen 32(H) 10 - 20 mg/dL [facility] Creatinine 2.38(H) 0.80 - 1.50 mg/dL [facility] Sodium 138 135 - 145 mmol/L [facility] Potassium 4.1 3.5 - 5.0 mmol/L [facility] Comment: Please note: ??Patients with WBC >100,000 may have falsely elevated Potassium levels. ??For accurate Potassium quantification in these patients send serum separator tube (gold top) for subsequent determinations. ??Contact the Clinical Chemistry Laboratory if there are any questions. Chloride 106 98 - 107 mmol/L [facility] Carbon Dioxide 20(L) 22 - 31 mmol/L [facility] Anion Gap 12 5 - 15 mmol/L [facility] Calcium 7.6(L) 8.5 - 10.5 mg/dL [facility] Est Glomerular Filtration Rate 29(L) >=60 mL/min/1. 73 m?? [facility] Comment: The eGFR was calculated using the CKD-EPI equation. As with all creatinine based estimates of kidney function, eGFR values calculated with the CKD-EPI equation are not accurate in patients with acute kidney failure, extremes of body mass or the acutely ill. http://[employer]/[facility] eGFR 34(L) >=60 mL/min/1. 73 m?? [facility] Comment: The eGFR was calculated using the CKD-EPI equation. As with all creatinine based estimates of kidney function, eGFR values calculated with the CKD-EPI equation are not accurate in patients with acute kidney failure, extremes of body mass or the acutely ill. http://[employer]/[facility] Blood specimen (specimen) 04/14/2018 5:48 AM EDT 04/14/2018 5:59 AM EDT Narrative Resulting Agency Comment Spec In Lab Hay Sparks MD CHEMISTRY ORDERABLES [facility] [place] [address] * Differential, Automated (04/13/2018 8:14 AM EDT) Neutrophil % 66.0 % [facility] Neutrophil Absolute 3.49 1.70 - 6.10 x10(3)/[facility] Lymph % 16.3 % [facility] Lymphocytes Abs 0.9 0.9 - 3.2 x10(3)/[facility] Monocyte % 10.4 % [facility] Monocyte Abs 0.6 0.3 - 0.9 x10(3)/[facility] Eos % 6.3 % [facility] Eosinophils Abs 0.3 0.0 - 0.4 x10(3)/[facility] Basophil % 0.4 % [facility] Baso Absolute 0.0 0.0 - 0.1 x10(3)/[facility] Immature Gran % 0.60 % [facility] Comment: Immature granulocytes(IG's)percentage and absolute count will include metamyelocytes, myelocytes, and promyelocytes. Blood smears from CBCs yielding IG's will be scanned manually for concordance. If this scan disagrees with the automated IG or if promyelocytes are noted, a manual differential will be performed. Immature Gran Absolute 0.03 0.00 - 0.04 x10(3)/mcL [facility] Blood specimen (specimen) 04/13/2018 8:14 AM EDT 04/13/2018 8:21 AM EDT Narrative Resulting Agency Comment Spec In Lab Apple Gutierrez MD HEMATOLOGY ORDERABLE S [facility] [place] [address] * (ABNORMAL) Hemogram (04/13/2018 8:14 AM EDT) White Blood Cell 5.3 4.0 - 9.5 x10(3)/mc L [facility] Red Blood Cell 2.53(L) 4.58 - 5.54 x10(6)/mc L [facility] Hemoglobin 7.8(L) 13.7 - 16.5 gm/dL [facility] Hematocrit 23.3(L) 40.5 - 48.5 % [facility] Mean Cell Volume 92.1 82.9 - 93.1 fL [facility] Mean Cell Hemoglobin 30.8 27.5 - 32.1 pg [facility] Mean Cell Hemoglobin Concentration 33.5 32.0 - 35.7 gm/dL [facility] Platelet 190 145 - 357 x10(3)/mc L [facility] RDW Standard Deviation 53.5(H) 36.0 - 45.0 fL [facility] RDW coefficient of variation 15.9(H) 11.4 - 13.8 % [facility] Mean Platelet Volume 8.2 7.6 - 12.9 fL [facility] NRBC% auto 0.0 % [facility] NRBC Absolute 0.000 0.000 - 0.000 x10(3)/mc L [facility] Blood specimen (specimen) 04/13/2018 8:14 AM EDT 04/13/2018 8:21 AM EDT Narrative Resulting Agency Comment Spec In Lab Apple Gutierrez MD HEMATOLOGY ORDERABLE S Performing Organization Address [facility] Co de Phone Number [facility] [place] [address] * APTT (04/13/2018 8:14 AM EDT) Partial Thromboplastin Time 29 25 - 37 sec [facility] Comment: The PTT is NOT appropriate for heparin monitoring. Use the Anti-Xa level for heparin monitoring (HEP UFH) or LMWH monitoring (HEP LMW). A PTT less than 37 seconds generally indicates adequate hemostasis. Blood specimen (specimen) 04/13/2018 8:14 AM EDT 04/13/2018 8:21 AM EDT Narrative Resulting Agency Comment Spec In Lab Chase Olvera MD HEMATOLOGY ORDERA BLES Performing Organization Address [facility] de Phone Number [facility] [place] [address] * (ABNORMAL) Prothrombin Time (04/13/2018 8:14 AM EDT) Prothrombin Time 17.3(H) 9.4 - 12.5 sec [facility] International Normalization Ratio 1.6 [facility] Comment: An INR <2.0 indicates [...] Lab Chase Olvera MD HEMATOLOGY ORDERA BLES [facility] [place] [address] * (ABNORMAL) Basic Metabolic Panel (non-fasting) (04/13/2018 8:14 AM EDT) Glucose 108 65 - 199 mg/dL [facility] Comment:Diabetes: >=200 mg/d L plus symptoms Blood Urea Nitrogen 30(H) 10 - 20 mg/dL [facility] Creatinine 2.28(H) 0.80 - 1.50 mg/dL [facility] Sodium 138 135 - 145 mmol/L [facility] Potassium 4.5 3.5 - 5.0 mmol/L [facility] Comment: Please note: ??Patients with WBC >100,000 may have falsely elevated Potassium levels. ??For accurate Potassium quantification in these patients send serum separator tube (gold top) for subsequent determinations. ??Contact the Clinical Chemistry Laboratory if there are any questions. Chloride 104 98 - 107 mmol/L [facility] Carbon Dioxide 20(L) 22 - 31 mmol/L [facility] Anion Gap 14 5 - 15 mmol/L [facility] Calcium 7.7(L) 8.5 - 10.5 mg/dL [facility] Est Glomerular Filtration Rate 31(L) >=60 mL/min/1. 73 m?? [facility] Comment: The eGFR was calculated using the CKD-EPI equation. As with all creatinine based estimates of kidney function, eGFR values calculated with the CKD-EPI equation are not accurate in patients with acute kidney failure, extremes of body mass or the acutely ill. [email or web address] eGFR 36(L) >=60 mL/min/1. 73 m?? [facility] Comment: The eGFR was calculated using the CKD-EPI equation. As with all creatinine based estimates of kidney function, eGFR values calculated with the CKD-EPI equation are not accurate in patients with acute kidney failure, extremes of body mass or the acutely ill. [email or web address] Blood specimen (specimen) 04/13/2018 8:14 AM EDT 04/13/2018 8:21 AM EDT Narrative Resulting Agency Comment Spec In Lab Hay Sparks MD CHEMISTRY ORDERABLES Performing Organization Address [facility] de Phone Number [facility] [place] [address] * Tacrolimus level (04/13/2018 8:14 AM EDT) Tacrolimus <2.0 ng/mL [facility] Comment: Trough therapeutic: ??5-15 ng/mL Performed by ultra-performance liquid chromatography tandem mass spectrometry (UPLCMS/MS). This test was developed and its performance characteristics determined by [facility]. It has not been cleared or [...] MD CHEMISTRY ORDERAB LES Performing Organization Address [facility] de Phone Number [facility] [place] [address] * (ABNORMAL) Protein/Creatinine Ratio, urine (04/13/2018 3:45 AM EDT) Creatinine, Urine 51 mg/dL [facility] Protein, Urine 373(H) 0 - 12 mg/dL [facility] Protein / Creatinine Ratio, Urine 7.3 ratio [facility] Urine specimen (specimen) 04/13/2018 3:45 AM EDT 04/13/2018 3:55 AM EDT Narrative Resulting Agency Comment Spec In Lab Chase Olvera MD URINE ORDERABLES Performing Organization Address [facility]/ZIP Co de Phone Number [facility] [place] [address] * (ABNORMAL) Urinalysis Microscopic Exam (04/13/2018 1:51 AM EDT) RBC, Urine 4(H) 0 - 3 /HPF [facility] WBC, Urine 1 0 - 3 /HPF [facility] Transitional Epithelial Cells, Urine <1 <=1 /HPF [facility] Hyaline Casts, Urine 4(H) 0 - 2 /LPF [facility] Urine specimen obtained by clean catch procedure (specimen) 04/13/2018 1:51 AM EDT 04/13/2018 1:58 AM EDT Narrative Resulting Agency Comment Spec In Lab Rasta Hernández MD URINE ORDERABLES Performing Organization Address [facility] Co de Phone Number [facility] [place] [address] * (ABNORMAL) Urinalysis with reflex Culture (04/13/2018 1:51 AM EDT) Glucose, Urine Dipstick Negative Negative mg/dL [facility] [...] mg/dL [facility] pH, Urn (dipstick) 7.0 5.0 - 8.0 [facility] Blood, Urine Dipstick Negative Negative mg/dL [facility] Ketone, Urine Dipstick Negative Negative mg/dL [facility] Nitrite, Urine Dipstick Negative Negative [facility] Leukocytes, Urine Dipstick Negative Negative [facility] Appearance, Urine Dipstick Clear Clear [facility] Specific [place] Urine Automated 1.017 1.002 - 1.030 [facility] Color, Urine Dipstick Yellow Yellow [facility] Reflex to Culture No [facility] Urine specimen obtained by clean catch procedure (specimen) 04/13/2018 1:51 AM EDT 04/13/2018 1:58 AM EDT Narrative Resulting Agency Comment Spec In Lab Chase Olvera MD URINE ORDERABLES [facility] [place] [address] * MRI Angiogram Neck wo Contrast (04/12/2018 [...] atherosclerosis, NO CONTRAST TECHNIQUE: MRA of the eyak of Morales and MRA of the neck were performed without IV contrast, with bqdv-oc-[id number] technique. ?? COMPARISON: MR head 04/07/2018 FINDINGS: MRA eyak of Morales: The intracranial internal carotid arteries, vertebral arteries, basilar artery, superior cerebellar arteries are normal in course and caliber. The bilateral MARCUS, MCA, and TAKE OFF WORKER are normal in course and caliber. No focal stenosis caliber change or aneurysm.. MRA neck: Dezr-ei-drywwx imaging excludes the arch. Vertebral arteries, common carotid arteries, bilateral ECA, ICA are normal in course and caliber. Procedure Note Sabrina Vargas MD - 04/12/2018 EXAMINATION: MRI ANGIOGRAM HEAD WO CONTRAST (GENERIC), MRI ANGIOGRAM NECKWO CONTRAST CLINICAL HISTORY: question intra cranial atherosclerosis, NO CONTRAST TECHNIQUE: MRA of the eyak of Morales and MRA of the neck were performed withoutIV contrast, with atqg-oc-eowulm technique. COMPARISON: MR head 04/07/2018 FINDINGS: MRA eyak of Morales: The intracranial internal carotid arteries, vertebral arteries, basilarartery, superior cerebellar arteries are normal in course and caliber. Thebilateral MARCUS, MCA, and TAKE OFF WORKER are normal in course and caliber. No focal stenosiscaliber change or aneurysm.. MRA neck: Fvxh-aq-wzbruv imaging excludes the arch. Vertebral arteries, common carotid arteries, bilateral ECA, ICA are normalin course and caliber. IMPRESSION Normal MRA of the head and neck. I have personally reviewed the image(s) and the residents interpretationand agree with the findings, Sabrina Chacko MD at 04/12/2018 5:27 PM 5:27 PM Chase Olvera MD IM MRI ORDERABLE S * MRI Angiogram Head [...] atherosclerosis, NO CONTRAST TECHNIQUE: MRA of the eyak of Mroales and MRA of the neck were performed without IV contrast, with sjap-ff-kirpgv technique. ?? COMPARISON: MR head 04/07/2018 FINDINGS: MRA eyak of Morales: The intracranial internal carotid arteries, vertebral arteries, basilar artery, superior cerebellar arteries are normal in course and caliber. The bilateral MARCUS, MCA, and TAKE OFF WORKER are normal in course and caliber. No focal stenosis caliber change or aneurysm.. MRA neck: Wwyv-xc-cesqcz imaging excludes the arch. Vertebral arteries, common carotid arteries, bilateral ECA, ICA are normal in course and caliber. Procedure Note Sabrina Vargas MD - 04/12/2018 EXAMINATION: MRI ANGIOGRAM HEAD WO CONTRAST (GENERIC), MRI ANGIOGRAM NECKWO CONTRAST CLINICAL HISTORY: question intra cranial atherosclerosis, NO CONTRAST TECHNIQUE: MRA of the eyak of Morales and MRA of the neck were performed withoutIV contrast, with fysf-hm-dgnlba technique. COMPARISON: MR head 04/07/2018 FINDINGS: MRA eyak of Morales: The intracranial internal carotid arteries, vertebral arteries, basilarartery, superior cerebellar arteries are normal in course and caliber. Thebilateral MARCUS, MCA, and TAKE OFF WORKER are normal in course and caliber. No focal stenosiscaliber change or aneurysm.. MRA neck: Slzy-sw-pmplqn imaging excludes the arch. Vertebral arteries, common carotid arteries, bilateral ECA, ICA are normalin course and caliber. IMPRESSION Normal MRA of the head and neck. I have personally reviewed the image(s) and the residents interpretationand agree with the findings, Sabrina Chacko MD at 04/12/2018 5:27 PM 5:27 PM Chase Olvera MD IMG MRI ORDERABLE S * Gold Tube HOLD (04/12/2018 8:40 AM EDT) Pathologist [facility] Gold Hold Sample in lab. [facility] Blood specimen (specimen) Venous Draw / Unknown 04/12/2018 8:40 AM EDT 04/12/2018 9:16 AM EDT Apple Gutierrez MD CHEMISTRY ORDERABLES [facility] [place] [address] * (ABNORMAL) Differential, Automated (04/12/2018 8:40 AM EDT) Neutrophil % 65.6 % [facility] Neutrophil Absolute 3.27 1.70 - 6.10 x10(3)/[facility] Lymph % 15.6 % [facility] Lymphocytes Abs 0.8(L) 0.9 - 3.2 x10(3)/[facility] Monocyte % 11.0 % [facility] Monocyte Abs 0.6 0.3 - 0.9 x10(3)/[facility] Eos % 6.6 % [facility] Eosinophils Abs 0.3 0.0 - 0.4 x10(3)/[facility] Basophil % 0.6 % [facility] Baso Absolute 0.0 0.0 - 0.1 x10(3)/[facility] Immature Gran % 0.60 % [facility] Comment: Immature granulocytes(IG's)percentage and absolute count will include metamyelocytes, myelocytes, and promyelocytes. Blood smears from CBCs yielding IG's will be scanned manually for concordance. If this scan disagrees with the automated IG or if promyelocytes are noted, a manual differential will be performed. Immature Gran Absolute 0.03 0.00 - 0.04 x10(3)/[facility] Blood specimen (specimen) 04/12/2018 8:40 AM EDT 04/12/2018 9:15 AM EDT Narrative Resulting Agency Comment Spec In Lab Apple Gutierrez MD HEMATOLOGY ORDERABLE S [facility] [place] [address] * (ABNORMAL) Hemogram (04/12/2018 8:40 AM EDT) White Blood Cell 5.0 4.0 - 9.5 x10(3)/[facility]ATORY Red Blood Cell 2.60(L) 4.58 - 5.54 x10(6)/mc L [facility] Hemoglobin 7.9(L) 13.7 - 16.5 gm/dL [facility] Hematocrit 24.0(L) 40.5 - 48.5 % [facility] Mean Cell Volume 92.3 82.9 - 93.1 fL [facility] Mean Cell Hemoglobin 30.4 27.5 - 32.1 pg [facility] Mean Cell Hemoglobin Concentration 32.9 32.0 - 35.7 gm/dL [facility] Platelet 183 145 - 357 x10(3)/mc L [facility] RDW Standard Deviation 54.2(H) 36.0 - 45.0 [facility] RDW coefficient of variation 16.0(H) 11.4 - 13.8 % [facility] Mean Platelet Volume 8.8 7.6 - 12.9 [facility] NRBC% auto 0.0 % [facility] NRBC Absolute 0.000 0.000 - 0.000 x10(3)/mc L [facility] Blood specimen (specimen) 04/12/2018 8:40 AM EDT 04/12/2018 9:15 AM EDT Narrative Resulting Agency Comment Spec In Lab Apple Gutierrez MD HEMATOLOGY ORDERABLE S [facility] [place] [address] * APTT (04/12/2018 8:40 AM EDT) Partial Thromboplastin Time 32 25 - 37 sec [facility] Comment: The PTT is NOT appropriate for heparin monitoring. Use the Anti-Xa level for heparin monitoring (HEP UFH) or LMWH monitoring (HEP LMW). A PTT less than 37 seconds generally indicates adequate hemostasis. Blood specimen (specimen) 04/12/2018 8:40 AM EDT 04/12/2018 9:15 AM EDT Narrative Resulting Agency Comment Spec In Lab Chase Olvera MD HEMATOLOGY ORDERA BLES Performing Organization Address [facility] Co de Phone Number [facility] [place] [address] * (ABNORMAL) Prothrombin Time (04/12/2018 8:40 AM EDT) Prothrombin Time 20.0(H) 9.4 - 12.5 sec [facility] International Normalization Ratio 1.8 [facility] Comment: An INR <2.0 indicates [...] MD HEMATOLOGY ORDERA BLES Performing Organization Address [facility] Co de Phone Number [facility] [place] [address] * (ABNORMAL) Basic Metabolic Panel (non-fasting) (04/12/2018 8:40 AM EDT) Pathologist [facility] Glucose 113 65 - 199 mg/dL [facility] Comment:Diabetes: >=200 mg/d L plus symptoms Blood Urea Nitrogen 31(H) 10 - 20 mg/dL [facility] Creatinine 2.35(H) 0.80 - 1.50 mg/dL [facility] Sodium 140 135 - 145 mmol/L [facility] Potassium 4.4 3.5 - 5.0 mmol/L [facility] Comment: Please note: ??Patients with WBC >100,000 may have falsely elevated Potassium levels. ??For accurate Potassium quantification in these patients send serum separator tube (gold top) for subsequent determinations. ??Contact the Clinical Chemistry Laboratory if there are any questions. Chloride 106 98 - 107 mmol/L [facility] Carbon Dioxide 20(L) 22 - 31 mmol/L [facility] Anion Gap 14 5 - 15 mmol/L [facility] Calcium 7.4(L) 8.5 - 10.5 mg/dL [facility] Est Glomerular Filtration Rate 30(L) >=60 mL/min/1. 73 m?? [facility] Comment: The eGFR was calculated using the CKD-EPI equation. As with all creatinine based estimates of kidney function, eGFR values calculated with the CKD-EPI equation are not accurate in patients with acute kidney failure, extremes of body mass or the acutely ill. http://[employer]/[facility]nk[facility] eGFR 35(L) >=60 mL/min/1. 73 m?? [facility] Comment: The eGFR was calculated using the CKD-EPI equation. As with all creatinine based estimates of kidney function, eGFR values calculated with the CKD-EPI equation are not accurate in patients with acute kidney failure, extremes of body mass or the acutely ill. http://[employer]/[facility] Blood specimen (specimen) 04/12/2018 8:40 AM EDT 04/12/2018 9:15 AM EDT Narrative Resulting Agency Comment Spec In Lab Hay Sparks MD CHEMISTRY ORDERABLES [facility] [place] [address] * ECHO COMPLETE (04/11/2018 2:53 PM EDT) EF 65 HEARTLAB SYSTEM Anatomical Region Laterality Modality Other 04/11/2018 Narrative 04/11/2018 3:21 PM EDT Amended Report Procedure: ?Transthoracic Echocardiogram Patient: ?ARNOL CHRISTY J ? (Age): 1960(57y) Med Rec#: ? [id number] ?Sex: ?M ? Site Loc: ? [facility] ?Ht / Wt: ??178(cm)/91.6(kg Pt. Loc: ?Adult Floor ? BSA: ?2.1 Study Date: ?? 04/11/2018 ?Pt. Type: Outpatient Tape: ? Referring: Lida Peter Reading: Tim Estrella ([id number]) Humanities Teacher: Chidi Steve [facility] Humanities Teacher 2: Yimi Norman Diagnosis: *Cerebral infarction due [...] ? Mid-Inferior ?Normal ? Mid-Inferoseptal ?Normal ? [place]-Septal ? Normal ? [place]-Anterior ? Normal ? [place]-Lateral ?Normal ? [place]-Inferior ? Normal ? [place]-Tip ?Normal ? This report has been electronically signed by: Tim Estrella M.D. ? 04/11/2018 15:21:34 Images reviewed and interpretation verified [facility]ound [facility] Procedure Note Tim Estrella MD - 04/11/2018 Amended Report Procedure: Transthoracic Echocardiogram Patient: ARNOL DU(Age): 1960(57y) Med Rec#: [id number] Sex: M Site Loc: [facility] Ht / Wt: 178(cm)/91.6(kg Pt. Loc: Adult Floor BSA: 2.1 Study Date: 04/11/2018 Pt. Type: Outpatient Tape: Referring: Lida Peter Reading: Tim Estrella ([id number]) Humanities Teacher: Chidi Steve [facility] Humanities Teacher 2: Yimi Norman Diagnosis: *Cerebral infarction due [...] Normal Mid-Posterolateral Normal Mid-Inferior Normal Mid-Inferoseptal Normal [place]-Septal Normal [place]-Anterior Normal [place]-Lateral Normal [place]-Inferior Normal [place]-Tip Normal This report has been electronically signed by: Tim Estrella M.D. 04/11/2018 15:21:34 Images reviewed and interpretation verified [facility] Lida Peter MD ECHO ORDERABLES * ABORH Recheck Status (04/11/2018 6:28 AM EDT) ABORH Type Recheck Completed [facility] Blood specimen (specimen) 04/11/2018 6:28 AM EDT 04/11/2018 6:28 AM EDT Narrative Resulting Agency Comment Spec In Lab Hanny Wiseman MD BLOOD BANK LAB ORDER KELLY [facility] [place] [address] * Antibody screen (04/11/2018 6:28 AM EDT) Ab Screen Interp Negative [facility] Expires at [id number] on: 04/14/2018 [facility] Blood specimen (specimen) 04/11/2018 6:28 AM EDT 04/11/2018 6:28 AM EDT Narrative Resulting Agency Comment Spec In Lab Hanny Wiseman MD BLOOD BANK LAB ORDER KELLY [facility] [place] [address] * ABO/Rh Typing (04/11/2018 6:28 AM EDT) ABORH Type A Pos [facility] Blood specimen (specimen) 04/11/2018 6:28 AM EDT 04/11/2018 6:28 AM EDT Narrative Resulting Agency Comment Spec In Lab Hanny Wiseman MD BLOOD BANK LAB ORDER [facility] [place] [address] * (ABNORMAL) Differential, Automated (04/11/2018 5:55 AM EDT) Neutrophil % 68.9 % [facility] Neutrophil Absolute 3.90 1.70 - 6.10 x10(3)/mc L [facility] Lymph % 14.7 % [facility] Lymphocytes Abs 0.8(L) 0.9 - 3.2 x10(3)/mc L [facility] Monocyte % 10.6 % [facility] Monocyte Abs 0.6 0.3 - 0.9 x10(3)/mc L [facility] Eos % 4.9 % [facility] Eosinophils Abs 0.3 0.0 - 0.4 x10(3)/mc L [facility] Basophil % 0.4 % [facility] Baso Absolute 0.0 0.0 - [...] Absolute 0.03 0.00 - 0.04 x10(3)/mc L [facility] Blood specimen (specimen) 04/11/2018 5:55 AM EDT 04/11/2018 6:03 AM EDT Narrative Resulting Agency Comment Spec In Lab Apple Gutierrez MD HEMATOLOGY ORDERABLE S [facility] [place] [address] * (ABNORMAL) Hemogram (04/11/2018 5:55 AM EDT) White Blood Cell 5.7 4.0 - 9.5 x10(3)/mc L [facility] Red Blood Cell 2.44(L) 4.58 - 5.54 x10(6)/mc L [facility] Hemoglobin 7.4(L) 13.7 - 16.5 gm/dL [facility] Hematocrit 22.2(L) 40.5 - 48.5 % [facility] Mean Cell Volume 91.0 82.9 - 93.1 fL [facility] Mean Cell Hemoglobin 30.3 27.5 - 32.1 pg [facility] Mean Cell Hemoglobin Concentration 33.3 32.0 - 35.7 gm/dL [facility] Platelet 150 145 - 357 x10(3)/mc L [facility] RDW Standard Deviation 52.6(H) 36.0 - 45.0 fL [facility] RDW coefficient of variation 15.9(H) 11.4 - 13.8 % [facility] Mean Platelet Volume 9.1 7.6 - 12.9 fL [facility] NRBC% auto 0.0 % [facility] NRBC Absolute 0.000 0.000 - 0.000 x10(3)/mc L [facility] Blood specimen (specimen) 04/11/2018 5:55 AM EDT 04/11/2018 6:03 AM EDT Narrative Resulting Agency Comment Spec In Lab Apple Gutierrez MD HEMATOLOGY ORDERABLE S [facility] [place] [address] * APTT (04/11/2018 5:55 AM EDT) Partial Thromboplastin Time 37 25 - 37 sec [facility] Comment: The PTT is NOT appropriate for heparin monitoring. Use the Anti-Xa level for heparin monitoring (HEP UFH) or LMWH monitoring (HEP LMW). A PTT less than 37 seconds generally indicates adequate hemostasis. Blood specimen (specimen) 04/11/2018 5:55 AM EDT 04/11/2018 6:04 AM EDT Narrative Resulting Agency Comment Spec In Lab Chase Olvera MD HEMATOLOGY ORDERA BLES Performing Organization Address [facility] Co de Phone Number [facility] [place] [address] * (ABNORMAL) Prothrombin Time (04/11/2018 5:55 AM EDT) Prothrombin Time 26.8(H) 9.4 - 12.5 sec [facility] International Normalization Ratio 2.4 [facility] Comment: An INR <2.0 indicates [...] MD HEMATOLOGY ORDERA BLES Performing Organization Address [facility] Co de Phone Number [facility] [place] [address] * (ABNORMAL) Basic Metabolic Panel (non-fasting) (04/11/2018 5:55 AM EDT) Glucose 112 65 - 199 mg/dL [facility] Comment:Diabetes: >=200 mg/d L plus symptoms Blood Urea Nitrogen 33(H) 10 - 20 mg/dL [facility] Creatinine 2.33(H) 0.80 - 1.50 mg/dL [facility] Sodium 144 135 - 145 mmol/L [facility] Potassium 4.5 3.5 - 5.0 mmol/L [facility] Comment: Please note: ??Patients with WBC >100,000 may have falsely elevated Potassium levels. ??For accurate Potassium quantification in these patients send serum separator tube (gold top) for subsequent determinations. ??Contact the Clinical Chemistry Laboratory if there are any questions. Chloride 110(H) 98 - 107 mmol/L [facility] Carbon Dioxide 22 22 - 31 mmol/L [facility] Anion Gap 12 5 - 15 mmol/L [facility] Calcium 7.3(L) 8.5 - 10.5 mg/dL [facility] Est Glomerular Filtration Rate 30(L) >=60 mL/min/1. 73 m?? [facility] Comment: The eGFR was calculated using the CKD-EPI equation. As with all creatinine based estimates of kidney function, eGFR values calculated with the CKD-EPI equation are not accurate in patients with acute kidney failure, extremes of body mass or the acutely ill. http://[employer]/[facility] eGFR 35(L) >=60 mL/min/1. 73 m?? [facility] Comment: The eGFR was calculated using the CKD-EPI equation. As with all creatinine based estimates of kidney function, eGFR values calculated with the CKD-EPI equation are not accurate in patients with acute kidney failure, extremes of body mass or the acutely ill. [email or web address] Blood specimen (specimen) 04/11/2018 5:55 AM EDT 04/11/2018 6:04 AM EDT Narrative Resulting Agency Comment Spec In Lab Hay Sparks MD CHEMISTRY ORDERABLES [facility] [place] [address] * POCT Glucose (04/10/2018 7:56 AM EDT) Glucose, POC 119 65 - 199 mg/dL [facility] Comment: Supplemental ranges: <140 mg/dL before meals <180 mg/dL all other times of the day Blood specimen (specimen) 04/10/2018 7:56 AM EDT 04/10/2018 7:56 AM EDT Chase Olvera MD POINT OF CARE SHAZIA T ORDERABLES [facility] [place] [address] * (ABNORMAL) Differential, Automated (04/10/2018 5:35 AM EDT) [facility] Neutrophil % 72.4 % [facility] Neutrophil Absolute 4.21 1.70 - 6.10 x10(3)/mc L [facility] Lymph % 12.7 % [facility] Lymphocytes Abs 0.7(L) 0.9 - 3.2 x10(3)/mc L [facility] Monocyte % 9.1 % [facility] Monocyte Abs 0.5 0.3 - 0.9 x10(3)/mc L [facility] Eos % 5.0 % [facility] Eosinophils Abs 0.3 0.0 - 0.4 x10(3)/mc L [facility] Basophil % 0.3 % [facility] Baso Absolute 0.0 0.0 - [...] Absolute 0.03 0.00 - 0.04 x10(3)/mc L [facility] Blood specimen (specimen) 04/10/2018 5:35 AM EDT 04/10/2018 6:09 AM EDT Narrative Resulting Agency Comment Spec In Lab Apple Gutierrez MD HEMATOLOGY ORDERABLE S [facility] [place] [address] * (ABNORMAL) Hemogram (04/10/2018 5:35 AM EDT) White Blood Cell 5.8 4.0 - 9.5 x10(3)/[facility] Red Blood Cell 2.44(L) 4.58 - 5.54 x10(6)/[facility] Hemoglobin 7.3(L) 13.7 - 16.5 gm/dL [facility] Hematocrit 22.0(L) 40.5 - 48.5 % [facility] Mean Cell Volume 90.2 82.9 - 93.1 [facility] Mean Cell Hemoglobin 29.9 27.5 - 32.1 pg [facility] Mean Cell Hemoglobin Concentration 33.2 32.0 - 35.7 gm/dL [facility] Platelet 105(L) 145 - 357 x10(3)/[facility] RDW Standard Deviation 52.6(H) 36.0 - 45.0 [facility] RDW coefficient of variation 15.9(H) 11.4 - 13.8 % [facility] Mean Platelet Volume 9.6 7.6 - 12.9 [facility] NRBC% auto 0.0 % [facility] NRBC Absolute 0.000 0.000 - 0.000 x10(3)/[facility] Blood specimen (specimen) 04/10/2018 5:35 AM EDT 04/10/2018 6:09 AM EDT Narrative Resulting Agency Comment Spec In Lab Apple Gutierrez MD HEMATOLOGY ORDERABLE S Performing Organization Address [facility] Co de Phone Number [facility] [place] [address] * APTT (04/10/2018 5:35 AM EDT) Partial Thromboplastin Time 36 25 - 37 sec [facility] Comment: The PTT is NOT appropriate for heparin monitoring. Use the Anti-Xa level for heparin monitoring (HEP UFH) or LMWH monitoring (HEP LMW). A PTT less than 37 seconds generally indicates adequate hemostasis. Blood specimen (specimen) 04/10/2018 5:35 AM EDT 04/10/2018 6:09 AM EDT Narrative Resulting Agency Comment Spec In Lab Chase Olvera MD HEMATOLOGY ORDERA BLES Performing Organization Address [facility] Co de Phone Number [facility] [place] [address] * (ABNORMAL) Prothrombin Time (04/10/2018 5:35 AM EDT) Prothrombin Time 28.7(H) 9.4 - 12.5 sec [facility] International Normalization Ratio 2.6 [facility] Comment: An INR <2.0 indicates [...] MD HEMATOLOGY ORDERA BLES Performing Organization Address [facility] Co de Phone Number [facility] [place] [address] * (ABNORMAL) Basic Metabolic Panel (non-fasting) (04/10/2018 5:35 AM EDT) Glucose 112 65 - 199 mg/dL [facility] Comment:Diabetes: >=200 mg/d L plus symptoms Blood Urea Nitrogen 33(H) 10 - 20 mg/dL [facility] Creatinine 2.59(H) 0.80 - 1.50 mg/dL [facility] Sodium 144 135 - 145 mmol/L [facility] Potassium 4.3 3.5 - 5.0 mmol/L [facility] Comment: Please note: ??Patients with WBC >100,000 may have falsely elevated Potassium levels. ??For accurate Potassium quantification in these patients send serum separator tube (gold top) for subsequent determinations. ??Contact the Clinical Chemistry Laboratory if there are any questions. Chloride 109(H) 98 - 107 mmol/L [facility] Carbon Dioxide 23 22 - 31 mmol/L [facility] Anion Gap 12 5 - 15 mmol/L [facility] Calcium 7.9(L) 8.5 - 10.5 mg/dL [facility] Est Glomerular Filtration Rate 27(L) >=60 mL/min/1. 73 m?? [facility] Comment: The eGFR was calculated using the CKD-EPI equation. As with all creatinine based estimates of kidney function, eGFR values calculated with the CKD-EPI equation are not accurate in patients with acute kidney failure, extremes of body mass or the acutely ill. http://[employer]/[facility]nk[facility] eGFR 31(L) >=60 mL/min/1. 73 m?? [facility] Comment: The eGFR was calculated using the CKD-EPI equation. As with all creatinine based estimates of kidney function, eGFR values calculated with the CKD-EPI equation are not accurate in patients with acute kidney failure, extremes of body mass or the acutely ill. [email or web address] Blood specimen (specimen) 04/10/2018 5:35 AM EDT 04/10/2018 6:09 AM EDT Narrative Resulting Agency Comment Spec In Lab Hay Sparks MD CHEMISTRY ORDERABLES Performing Organization Address [facility]/ZIP Co de Phone Number [facility] [place] [address] * POCT Glucose (04/09/2018 8:26 PM EDT) Glucose, POC 137 65 - 199 mg/dL [facility] Comment: Supplemental ranges: <140 mg/dL before meals <180 mg/dL all other times of the day Blood specimen (specimen) 04/09/2018 8:26 PM EDT 04/09/2018 8:26 PM EDT Chase Olvera MD POINT OF CARE SHAZIA T ORDERABLES Performing Organization Address [facility] Co de Phone Number [facility] [place] [address] * APTT (04/09/2018 8:25 PM EDT) Partial Thromboplastin Time 37 25 - 37 sec [facility] Comment: The PTT is NOT appropriate for heparin monitoring. Use the Anti-Xa level for heparin monitoring (HEP UFH) or LMWH monitoring (HEP LMW). A PTT less than 37 seconds generally indicates adequate hemostasis. Blood specimen (specimen) 04/09/2018 8:25 PM EDT 04/09/2018 8:30 PM EDT Narrative Resulting Agency Comment Spec In Lab Lida Peter MD HEMATOLOGY ORDERABLE S Performing Organization Address [facility]/ZIP Co de Phone Number [facility] [place] [address] * (ABNORMAL) Prothrombin Time (04/09/2018 8:25 PM EDT) Prothrombin Time 30.4(H) 9.4 - 12.5 sec [facility] International Normalization Ratio 2.7 [facility] Comment: An INR <2.0 indicates [...] Lab Lida Peter MD HEMATOLOGY ORDERABLE S [facility] [place] [address] * Transfuse thawed plasma (04/09/2018 6:04 PM EDT) Lida Peter MD NURSING TREATMENT OR DERABLES - BLOOD ADMIN * Transfuse thawed plasma (04/09/2018 4:29 PM EDT) Lida Peter MD NURSING TREATMENT OR DERABLES - BLOOD ADMIN * Transfuse thawed plasma (04/09/2018 1:52 PM EDT) Chase Olvera MD NURSING TREATMENT ORDERABLES - BLOOD ADMIN * Prepare thawed plasma (04/09/2018 11:05 AM EDT) Dispensed? Yes [facility] Blood specimen (specimen) 04/09/2018 11:05 AM EDT 04/09/2018 11:07 AM EDT Lida Peter MD BLOOD BANK PRODUCT O RDERABLES [facility] [place] [address] * (ABNORMAL) APTT (04/09/2018 10:03 AM EDT) Partial Thromboplastin Time 39(H) 25 - 37 sec [facility] Comment: The PTT is NOT appropriate for heparin monitoring. Use the Anti-Xa level for heparin monitoring (HEP UFH) or LMWH monitoring (HEP LMW). A PTT less than 37 seconds generally indicates adequate hemostasis. Blood specimen (specimen) 04/09/2018 10:03 AM EDT 04/09/2018 10:13 AM EDT Narrative Resulting Agency Comment Spec In Lab Lida Peter MD HEMATOLOGY ORDERABLE S Performing Organization Address [facility] Co de Phone Number [facility] [place] [address] * (ABNORMAL) Prothrombin Time (04/09/2018 10:03 AM EDT) Prothrombin Time 47.7(H) 9.4 - 12.5 sec [facility] International Normalization Ratio 4.2 [facility] Comment: An INR <2.0 indicates [...] MD HEMATOLOGY ORDERABLE S Performing Organization Address [facility] Co de Phone Number [facility] [place] [address] * Differential, Automated (04/09/2018 3:05 AM EDT) Neutrophil % 74.9 % [facility] Neutrophil Absolute 6.08 1.70 - 6.10 x10(3)/[facility] LABOR[facility] Lymph % 12.2 % [facility] Lymphocytes Abs 1.0 0.9 - 3.2 x10(3)/[facility] Monocyte % 8.7 % [facility] Monocyte Abs 0.7 0.3 - 0.9 x10(3)/[facility]OR[facility] Eos % 3.2 % [facility] Eosinophils Abs 0.3 0.0 - 0.4 x10(3)/[facility] Basophil % 0.5 % [facility] Baso Absolute 0.0 0.0 - 0.1 x10(3)/[facility] LABORATORY Immature Gran % 0.50 % [facility] Comment: Immature granulocytes(IG's)percentage and absolute count will include metamyelocytes, myelocytes, and promyelocytes. Blood smears from CBCs yielding IG's will be scanned manually for concordance. If this scan disagrees with the automated IG or if promyelocytes are noted, a manual differential will be performed. Immature Gran Absolute 0.04 0.00 - 0.04 x10(3)/[facility] Blood specimen (specimen) 04/09/2018 3:05 AM EDT 04/09/2018 3:13 AM EDT Narrative Resulting Agency Comment Spec In Lab Apple Gutierrez MD HEMATOLOGY ORDERABLE S [facility] [place] [address] * (ABNORMAL) Hemogram (04/09/2018 3:05 AM EDT) White Blood Cell 8.1 4.0 - 9.5 x10(3)/mc L [facility] Red Blood Cell 2.55(L) 4.58 - 5.54 x10(6)/mc L [facility] Hemoglobin 7.8(L) 13.7 - 16.5 gm/dL [facility] Hematocrit 22.8(L) 40.5 - 48.5 % [facility] Mean Cell Volume 89.4 82.9 - 93.1 fL [facility] Mean Cell Hemoglobin 30.6 27.5 - 32.1 pg [facility] Mean Cell Hemoglobin Concentration 34.2 32.0 - 35.7 gm/dL [facility] Platelet 100(L) 145 - 357 x10(3)/mc L [facility] RDW Standard Deviation 53.7(H) 36.0 - 45.0 fL [facility] RDW coefficient of variation 16.6(H) 11.4 - 13.8 % [facility] Mean Platelet Volume 8.9 7.6 - 12.9 fL [facility] NRBC% auto 0.0 % [facility] NRBC Absolute 0.000 0.000 - 0.000 x10(3)/mc L [facility] Blood specimen (specimen) 04/09/2018 3:05 AM EDT 04/09/2018 3:13 AM EDT Narrative Resulting Agency Comment Spec In Lab Apple Gutierrez MD HEMATOLOGY ORDERABLE S [facility] [place] [address] * (ABNORMAL) Basic Metabolic Panel (non-fasting) (04/09/2018 3:05 AM EDT) Glucose 122 65 - 199 mg/dL [facility] Comment:Diabetes: >=200 mg/d L plus symptoms Blood Urea Nitrogen 44(H) 10 - 20 mg/dL [facility] Creatinine 3.00(H) 0.80 - 1.50 mg/dL [facility] Sodium 146(H) 135 - 145 mmol/L [facility] Potassium 4.9 3.5 - 5.0 mmol/L [facility] Comment: Please note: ??Patients with WBC >100,000 may have falsely elevated Potassium levels. ??For accurate Potassium quantification in these patients send serum separator tube (gold top) for subsequent determinations. ??Contact the Clinical Chemistry Laboratory if there are any questions. Chloride 110(H) 98 - 107 mmol/L [facility] Carbon Dioxide 21(L) 22 - 31 mmol/L [facility] Anion Gap 15 5 - 15 mmol/L [facility] Calcium 7.7(L) 8.5 - 10.5 mg/dL [facility] Est Glomerular Filtration Rate 22(L) >=60 mL/min/1. 73 m?? [facility] Comment: The eGFR was calculated using the CKD-EPI equation. As with all creatinine based estimates of kidney function, eGFR values calculated with the CKD-EPI equation are not accurate in patients with acute kidney failure, extremes of body mass or the acutely ill. http://[employer]/[facility] eGFR 26(L) >=60 mL/min/1. 73 m?? [facility] Comment: The eGFR was calculated using the CKD-EPI equation. As with all creatinine based estimates of kidney function, eGFR values calculated with the CKD-EPI equation are not accurate in patients with acute kidney failure, extremes of body mass or the acutely ill. http://[employer]/[facility] Blood specimen (specimen) 04/09/2018 3:05 AM EDT 04/09/2018 3:13 AM EDT Narrative Resulting Agency Comment Spec In Lab Hay Sparks MD CHEMISTRY ORDERABLES Performing Organization Address City/[facility]/ZIP Co de Phone Number [facility] [place] [address] * Lavender Tube HOLD (04/08/2018 8:10 PM EDT) Lavender Hold Sample in lab. [facility] Blood specimen (specimen) Venous Draw / Unknown 04/08/2018 8:10 PM EDT 04/08/2018 8:26 PM EDT John Rose MD HEMATOLOGY ORDERABLE S [facility] [place] [address] * (ABNORMAL) Phenytoin level, total and free (04/08/2018 8:10 PM EDT) Phenytoin 7.3(L) 10.0 - 20.0 mg/L [facility] Comment: Theraputic range: ??10-20 mg/L Toxic: ??> 25 mg/L Patients with renal dysfunction (e.g.creatinine clearance < 30 mls/min) may show falsely elevated results due to accumulation of metabolites in renal failure Phenytoin, Free 0.95(L) 1.00 - 2.00 mg/L [facility] Comment: Therapeutic range: ? Free phenytoin: ??1.00-2.00 mg/L ? % Free phenytoin: ??8-12% Toxic range: ? Free phenytoin: ??>3.00 mg/L This test was developed and its performance characteristics determined by [facility]. It has not been cleared or approved by the FDA. The laboratory is regulated under CLIA as qualified to perform high-complexity testing. This test is used for clinical purposes. It should not be regarded as investigational or for research. Phenyt Free % 13(H) 8 - 12 % [facility] Comment: This test was developed and its performance characteristics determined by [facility]. It has not been cleared [...] In Lab Lida Peter MD CHEMISTRY ORDERABLES [facility] [place] [address] * Transfuse RBC (04/08/2018 4:59 PM EDT) Lida Peter MD NURSING TREATMENT OR DERABLES - BLOOD ADMIN * Transfuse RBC (04/08/2018 4:59 PM EDT) Lida Peter MD NURSING TREATMENT OR DERABLES - BLOOD ADMIN * EEG awake, asleep, drowsy, routine (04/08/2018 3:45 PM EDT) Narrative Beth Colunga - 04/08/2018 3:45 PM EDT Beth Colunga ? 04/08/2018 ??3:45 PM [facility] Department of Neurology In Patient Routine EEG [...] mg ??4 mg Intravenous Q8H PRN Tim Odgen MD ?? 4 mg at 04/08/18 0401 [...] Minaya MD ?? 1 mg at 04/08/18 08 ? ? mycophenolate (CELLCEPT) capsule 250 mg ??250 mg Oral BID Natalya Minaya MD ?? 250 mg at 04/08/18822 ? ? hydrALAZINE (APRESOLINE) injection 10 mg ??10 mg Intravenous Q6H PRN Natalya Minaya MD ? labetalol (NORMODYNE,TRANDATE) injection 20 mg ??20 mg Intravenous Q4H PRN Natalya Minaya MD ? METHODS: A 21 channel digitized electroencephalogram was performed in the [facility]. The 10/20 international system of electrode placement was used and bipolar and referential electrode montages were recorded. ??In addition to EEG the patient was monitored for EKG and lateral/vertical eye movements. Video was recorded during the session. The duration of the recording was 30 minutes. AP PROCESSOR'S REPORT: Performed by: AT Patient was not sleep deprived. Sleep was not attained. Photic stimulation was performed. Hyperventilation was not performed. Effort was was not adequate. Movement and other artifact was not significant. Comments: none Lida Peter MD NEUROLOGY ORDERABLES * Carotid Duplex, Bilateral (04/08/2018 2:49 PM EDT) VB Text Report Department: Vascular Surgery Lab Patient: [id number] (ARNOL, CHRISTY) CPT: 98485 ICD10: I63.9 Referring Physician: LIDA PETER ?? [...] Peter MD VASCULAR ORDERABLES Performing Organization Address [facility]/ZIP Co de Phone Number [facility] * (ABNORMAL) Levetiracetam level (04/08/2018 1:55 PM EDT) Levetiracetam Lvl (NOVEMBER) 47.4(H) 12.0 - 46.0 mcg/mL [facility] Comment: ADDITIONAL INFORMATION This test was developed and its performance characteristics determined by [facility] in a manner consistent with CLIA requirements. This test has not been cleared or approved by the U.S. Food and Drug Administration. Test Performed by: [facility] [address] [place] [address] Blood specimen (specimen) 04/08/2018 1:55 PM EDT 04/08/2018 3:54 PM EDT Narrative Resulting Agency Comment Spec In Lab Lida Peter MD LAB SEND OUT ORDERAB LES Performing Organization Address [facility] Co de Phone Number [facility] [place] [address] * Prepare RBC (04/08/2018 11:15 AM EDT) Dispensed? No [facility] Blood specimen (specimen) 04/08/2018 11:15 AM EDT 04/08/2018 11:11 AM EDT Lida Peter MD BLOOD BANK PRODUCT O RDERABLES Performing Organization Address City/[facility]/ZIP Co de Phone Number [facility] [place] [address] * Prepare RBC (04/08/2018 11:15 AM EDT) Dispensed? Yes [facility] Blood specimen (specimen) 04/08/2018 11:15 AM EDT 04/08/2018 11:11 AM EDT Lida Peter MD BLOOD BANK PRODUCT O RDERABLES Performing Organization Address [facility]ional [facility] Co de Phone Number [facility] [place] [address] * (ABNORMAL) APTT (04/08/2018 10:45 AM EDT) Partial Thromboplastin Time 38(H) 25 - 37 sec [facility] Comment: The PTT is NOT appropriate for heparin monitoring. Use the Anti-Xa level for heparin monitoring (HEP UFH) or LMWH monitoring (HEP LMW). A PTT less than 37 seconds generally indicates adequate hemostasis. Blood specimen (specimen) 04/08/2018 10:45 AM EDT 04/08/2018 10:55 AM EDT Narrative Resulting Agency Comment Spec In Lab Lida Peter MD HEMATOLOGY ORDERABLE S Performing Organization Address [facility] Co de Phone Number [facility] [place] [address] * (ABNORMAL) Prothrombin Time (04/08/2018 10:45 AM EDT) Prothrombin Time 51.2(H) 9.4 - 12.5 sec [facility] International Normalization Ratio 4.5 [facility] Comment: An INR <2.0 indicates [...] MD HEMATOLOGY ORDERABLE S Performing Organization Address City/[facility]/ZIP Co de Phone Number [facility] [place] [address] * (ABNORMAL) CK (04/08/2018 10:45 AM EDT) Creatine Kinase 646(H) 0 - 200 unit/L [facility] Blood specimen (specimen) 04/08/2018 10:45 AM EDT 04/08/2018 10:55 AM EDT Narrative Resulting Agency Comment Spec In Lab Lida Peter MD CHEMISTRY ORDERABLES Performing Organization Address [facility] Co de Phone Number [facility] [place] [address] * (ABNORMAL) Hemoglobin and Hematocrit, blood (04/08/2018 10:45 AM EDT) Hemoglobin 7.2(L) 13.7 - 16.5 gm/dL [facility] Hematocrit 21.3(L) 40.5 - 48.5 % [facility] Blood specimen (specimen) 04/08/2018 10:45 AM EDT 04/08/2018 10:55 AM EDT Narrative Resulting Agency Comment Spec In Lab Lida Peter MD HEMATOLOGY ORDERABLE S Performing Organization Address City/[facility]/ZIP Co de Phone Number [facility] [place] [address] * Tacrolimus level (04/08/2018 8:30 AM EDT) Tacrolimus 2.1 ng/mL [facility] Comment: Trough therapeutic: ??5-15 ng/mL Performed by ultra-performance liquid chromatography tandem mass spectrometry (UPLCMS/MS). This test was developed and its performance characteristics determined by [facility]. It has not been cleared [...] Peter MD CHEMISTRY ORDERABLES Performing Organization Address [facility]/[place] [address] * Prepare RBC (04/08/2018 4:55 AM EDT) Dispensed? Yes [facility] Blood specimen (specimen) 04/08/2018 4:55 AM EDT 04/08/2018 4:59 AM EDT Lida Peter MD BLOOD BANK PRODUCT O RDERABLES Performing Organization Address [facility]/ZIP Co de Phone Number [facility] [place] [address] * Blue Tube HOLD (04/08/2018 4:05 AM EDT) Blue Hold Sample in lab. [facility] Blood specimen (specimen) Venous Draw / Unknown 04/08/2018 4:05 AM EDT 04/08/2018 4:21 AM EDT Apple Gutierrez MD HEMATOLOGY ORDERABLE S Performing Organization Address [facility]/ZIP Co de Phone Number [facility] [place] [address] * (ABNORMAL) Differential, Automated (04/08/2018 4:05 AM EDT) Neutrophil % 81.8 % [facility] Neutrophil Absolute 7.13(H) 1.70 - 6.10 x10(3)/mc L [facility] Lymph % 8.0 % [facility] Lymphocytes Abs 0.7(L) 0.9 - 3.2 x10(3)/[facility] Monocyte % 7.9 % [facility] Monocyte Abs 0.7 0.3 - 0.9 x10(3)/[facility] Eos % 1.8 % [facility] Eosinophils Abs 0.2 0.0 - 0.4 x10(3)/[facility] Basophil % 0.2 % [facility] Baso Absolute 0.0 0.0 - 0.1 x10(3)/[facility] Immature Gran % 0.30 % [facility] Comment: Immature granulocytes(IG's)percentage and absolute count will include metamyelocytes, myelocytes, and promyelocytes. Blood smears from CBCs yielding IG's will be scanned manually for concordance. If this scan disagrees with the automated IG or if promyelocytes are noted, a manual differential will be performed. Immature Gran Absolute 0.03 0.00 - 0.04 x10(3)/[facility] Blood specimen (specimen) 04/08/2018 4:05 AM EDT 04/08/2018 4:21 AM EDT Narrative Resulting Agency Comment Spec In Lab Apple Gutierrez MD HEMATOLOGY ORDERABLE S [facility] [place] [address] * (ABNORMAL) Hemogram (04/08/2018 4:05 AM EDT) White Blood Cell 8.7 4.0 - 9.5 x10(3)/[facility] Red Blood Cell 2.26(L) 4.58 - 5.54 x10(6)/[facility] Hemoglobin 6.8(L) 13.7 - 16.5 gm/dL [facility] Hematocrit 20.4(L) 40.5 - 48.5 % [facility] Mean Cell Volume 90.3 82.9 - 93.1 fL [facility] Mean Cell Hemoglobin 30.1 27.5 - 32.1 pg [facility] Mean Cell Hemoglobin Concentration 33.3 32.0 - 35.7 gm/dL [facility] Platelet 94(L) 145 - 357 x10(3)/mc L [facility] RDW Standard Deviation 57.9(H) 36.0 - 45.0 fL [facility] RDW coefficient of variation 17.7(H) 11.4 - 13.8 % [facility] Mean Platelet Volume 9.7 7.6 - 12.9 [facility] NRBC% auto 0.0 % [facility] NRBC Absolute 0.000 0.000 - 0.000 x10(3)/mc L [facility] Blood specimen (specimen) 04/08/2018 4:05 AM EDT 04/08/2018 4:21 AM EDT Narrative Resulting Agency Comment Spec In Lab Apple Gutierrez MD HEMATOLOGY ORDERABLE S [facility] [place] [address] * (ABNORMAL) Basic Metabolic Panel (non-fasting) (04/08/2018 4:05 AM EDT) Glucose 120 65 - 199 mg/dL [facility] Comment:Diabetes: >=200 mg/d L plus symptoms Blood Urea Nitrogen 47(H) 10 - 20 mg/dL [facility] Creatinine 2.93(H) 0.80 - 1.50 mg/dL [facility] Sodium 144 135 - 145 mmol/L [facility] Potassium 5.4(H) 3.5 - 5.0 mmol/L [facility] Comment: Please note: ??Patients with WBC >100,000 may have falsely elevated Potassium levels. ??For accurate Potassium quantification in these patients send serum separator tube (gold top) for subsequent determinations. ??Contact the Clinical Chemistry Laboratory if there are any questions. Chloride 115(H) 98 - 107 mmol/L [facility] Carbon Dioxide 16(L) 22 - 31 mmol/L [facility] Anion Gap 13 5 - 15 mmol/L [facility] Calcium 7.1(L) 8.5 - 10.5 mg/dL [facility] Comment:result rechecked-KS Est Glomerular Filtration Rate 23(L) >=60 mL/min/1. 73 m?? [facility] Comment: The eGFR was calculated using the CKD-EPI equation. As with all creatinine based estimates of kidney function, eGFR values calculated with the CKD-EPI equation are not accurate in patients with acute kidney failure, extremes of body mass or the acutely ill. [email or web address] eGFR 26(L) >=60 mL/min/1. 73 m?? [facility] Comment: The eGFR was calculated using the CKD-EPI equation. As with all creatinine based estimates of kidney function, eGFR values calculated with the CKD-EPI equation are not accurate in patients with acute kidney failure, extremes of body mass or the acutely ill. [email or web address] Blood specimen (specimen) 04/08/2018 4:05 AM EDT 04/08/2018 4:21 AM EDT Narrative Resulting Agency Comment Spec In Lab Hay Sparks MD CHEMISTRY ORDERABLES [facility] [place] [address] * MRI Brain wo Contrast (04/07/2018 9:11 [...] widening of the sulci. Procedure Note Marcia aMthew MD - 04/07/2018 EXAMINATION: MRI BRAIN WO [...] thoracic and lumbar spine were performed at [facility] on 04/06/2018. COMPARISON: CT chest and [...] thoracic and lumbar spine were performed at [facility] on 04/06/2018. COMPARISON: CT chest and [...] * POCT Glucose (04/07/2018 5:56 AM EDT) Glucose, POC 136 65 - 199 mg/dL [facility] Comment: Supplemental ranges: <140 mg/dL before meals <180 mg/dL all other times of the day Blood specimen (specimen) 04/07/2018 5:56 AM EDT 04/07/2018 5:56 AM EDT Lida Peter MD POINT OF CARE TEST O RDERABLES [facility] [place] [address] * (ABNORMAL) Cardiac Enzymes (LEB/CGP) (04/07/2018 5:55 AM EDT) Pathologist [facility] Troponin-T 0.15(H) 0.00 - 0.00 ng/mL [facility] Comment: The 99th percentile for Troponin T is less than 0.01 ng/mL, any detectable cTnT concentration using this assay should be considered elevated. According to the third universal definition of myocardial infarction the following criteria with a clinical presentation consistent with acute myocardial ischemia meets the diagnosis for a myocardial infarction (DC). Detection of a rise and/or fall of cTnT, with at least one value greater than the 99th percentile (> or = 0.01) and with at least one of the following ?? Symptoms of ischemia ?? New or presumed new significant RN-[id number]-Q wave (ST-T) changes or new left bundle [...] additional sample may be indicated. Reference: Third [place] Definition of Myocardial Infarction. Journal of the [place] [employer] 2012;60:1581-98 Creatine Kinase 700(H) 0 - 200 unit/L [facility] Blood specimen (specimen) 04/07/2018 5:55 AM EDT 04/07/2018 6:34 AM EDT Narrative Resulting Agency Comment Spec In Lab Lida Peter MD CHEMISTRY ORDERABLES Performing Organization Address [facility]/ZIP Co de Phone Number [facility] [place] [address] * (ABNORMAL) CK (04/07/2018 5:55 AM EDT) Creatine Kinase 699(H) 0 - 200 unit/L [facility] Blood specimen (specimen) 04/07/2018 5:55 AM EDT 04/07/2018 6:03 AM EDT Narrative Resulting Agency Comment Spec In Lab Lida Peter MD CHEMISTRY ORDERABLES Performing Organization Address City/[facility]/ZIP Co de Phone Number [facility] [place] [address] * (ABNORMAL) Hemoglobin and Hematocrit, blood (04/07/2018 5:55 AM EDT) Hemoglobin 7.2(L) 13.7 - 16.5 gm/dL [facility] Hematocrit 21.2(L) 40.5 - 48.5 % [facility] Blood specimen (specimen) 04/07/2018 5:55 AM EDT 04/07/2018 6:03 AM EDT Narrative Resulting Agency Comment Spec In Lab Lida Peter MD HEMATOLOGY ORDERABLE S Performing Organization Address City/[facility]/ZIP Co de Phone Number [facility] [place] [address] * Lactate, whole blood, send to lab (Leb/CGP) (04/07/2018 5:55 AM EDT) Pathologist [facility] Lactate WB 1.2 0.5 - 2.2 mmol/L [facility] Blood specimen (specimen) 04/07/2018 5:55 AM EDT 04/07/2018 6:03 AM EDT Narrative Resulting Agency Comment Spec In Lab Lida Peter MD CHEMISTRY ORDERABLES Performing Organization Address [facility] Co de Phone Number [facility] [place] [address] * (ABNORMAL) Basic Metabolic Panel (non-fasting) (04/07/2018 4:30 AM EDT) [facility] Glucose 124 65 - 199 mg/dL [facility] Comment:Diabetes: >=200 mg/d L plus symptoms Blood Urea Nitrogen 50(H) 10 - 20 mg/dL [facility] Creatinine 2.68(H) 0.80 - 1.50 mg/dL [facility] Sodium 143 135 - 145 mmol/L [facility] Potassium 5.4(H) 3.5 - 5.0 mmol/L [facility] Comment: Please note: ??Patients with WBC >100,000 may have falsely elevated Potassium levels. ??For accurate Potassium quantification in these patients send serum separator tube (gold top) for subsequent determinations. ??Contact the Clinical Chemistry Laboratory if there are any questions. Chloride 116(H) 98 - 107 mmol/L [facility] Carbon Dioxide 16(L) 22 - 31 mmol/L [facility] Anion Gap 11 5 - 15 mmol/L [facility] Calcium 7.0(L) 8.5 - 10.5 mg/dL [facility] Est Glomerular Filtration Rate 25(L) >=60 mL/min/1. 73 m?? [facility] Comment: The eGFR was calculated using the CKD-EPI equation. As with all creatinine based estimates of kidney function, eGFR values calculated with the CKD-EPI equation are not accurate in patients with acute kidney failure, extremes of body mass or the acutely ill. [email or web address]MONDnkf eGFR 29(L) >=60 mL/min/1. 73 m?? [facility] Comment: The eGFR was calculated using the CKD-EPI equation. As with all creatinine based estimates of kidney function, eGFR values calculated with the CKD-EPI equation are not accurate in patients with acute kidney failure, extremes of body mass or the acutely ill. [email or web address]MONDnkf Blood specimen (specimen) 04/07/2018 4:30 AM EDT 04/07/2018 4:34 AM EDT Narrative Resulting Agency Comment Spec In Lab Lida Peter MD CHEMISTRY ORDERABLES Performing Organization Address [facility] Co de Phone Number [facility] [place] [address] * POCT Glucose (04/07/2018 3:35 AM EDT) [facility] Glucose, POC 131 65 - 199 mg/dL [facility] Comment: Supplemental ranges: <140 mg/dL before meals <180 mg/dL all other times of the day Blood specimen (specimen) 04/07/2018 3:35 AM EDT 04/07/2018 3:35 AM EDT Lida Peter MD POINT OF CARE TEST O RDERABLES Performing Organization Address [facility]/ZIP Co de Phone Number [facility] [place] [address] * Lactate, whole blood, send to lab (Leb/CGP) (04/07/2018 12:15 AM EDT) [facility] Lactate WB 1.5 0.5 - 2.2 mmol/L [facility] Blood specimen (specimen) 04/07/2018 12:15 AM EDT 04/07/2018 12:21 AM EDT Narrative Resulting Agency Comment Spec In Lab Lida Peter MD CHEMISTRY ORDERABLES Performing Organization Address [facility] Co de Phone Number [facility] [place] [address] * (ABNORMAL) CK (04/07/2018 12:15 AM EDT) Creatine Kinase 608(H) 0 - 200 unit/L [facility] Comment:result rechecked-RR Blood specimen (specimen) 04/07/2018 12:15 AM EDT 04/07/2018 12:21 AM EDT Narrative Resulting Agency Comment Spec In Lab Lida Peter MD CHEMISTRY ORDERABLES Performing Organization Address [facility] Co de Phone Number [facility] [place] [address] * (ABNORMAL) Hemoglobin and Hematocrit, blood (04/07/2018 12:15 AM EDT) Hemoglobin 7.9(L) 13.7 - 16.5 gm/dL [facility] Hematocrit 23.1(L) 40.5 - 48.5 % [facility] Blood specimen (specimen) 04/07/2018 12:15 AM EDT 04/07/2018 12:21 AM EDT Narrative Resulting Agency Comment Spec In Lab Lida Peter MD HEMATOLOGY ORDERABLE S Performing Organization Address [facility] Co de Phone Number [facility] [place] [address] * (ABNORMAL) Basic Metabolic Panel (non-fasting) (04/07/2018 12:15 AM EDT) Glucose 167 65 - 199 mg/dL [facility] Comment:Diabetes: >=200 mg/d L plus symptoms Blood Urea Nitrogen 48(H) 10 - 20 mg/dL [facility] Creatinine 2.58(H) 0.80 - 1.50 mg/dL [facility] Sodium 143 135 - 145 mmol/L [facility] Potassium 6.1(Criti constance) 3.5 - 5.0 mmol/L [facility] Comment: Called by: RUPINDER, Read back by: EVELIN CALLEJAS, Date/Time:04/07/18 01:06. Please note: ??Patients with WBC >100,000 may have falsely elevated Potassium levels. ??For accurate Potassium quantification in these patients send serum separator tube (gold top) for subsequent determinations. ??Contact the Clinical Chemistry Laboratory if there are any questions. Chloride 117(H) 98 - 107 mmol/L [facility] Carbon Dioxide 15(L) 22 - 31 mmol/L [facility] Anion Gap 11 5 - 15 mmol/L [facility] Calcium 6.8(Criti constance) 8.5 - 10.5 mg/dL [facility] Comment:Called by: RUPINDER, Read back by: EVELIN CALLEJAS, Date/Time:04/07/18 01:06. Est Glomerular Filtration Rate 27(L) >=60 mL/min/1. 73 m?? [facility] Comment: The eGFR was calculated using the CKD-EPI equation. As with all creatinine based estimates of kidney function, eGFR values calculated with the CKD-EPI equation are not accurate in patients with acute kidney failure, extremes of body mass or the acutely ill. http://[employer]/[facility] EDMONDnkf eGFR 31(L) >=60 mL/min/1. 73 m?? [facility] Comment: The eGFR was calculated using the CKD-EPI equation. As with all creatinine based estimates of kidney function, eGFR values calculated with the CKD-EPI equation are not accurate in patients with acute kidney failure, extremes of body mass or the acutely ill. [email or web address] Blood specimen (specimen) 04/07/2018 12:15 AM EDT 04/07/2018 12:21 AM EDT Narrative Resulting Agency Comment Spec In Lab Lida Peter MD CHEMISTRY ORDERABLES Performing Organization Address [facility] Co de Phone Number [facility] [place] [address] * POCT Glucose (04/06/2018 8:30 PM EDT) Glucose, POC 177 65 - 199 mg/dL [facility] Comment: Supplemental ranges: <140 mg/dL before meals <180 mg/dL all other times of the day Blood specimen (specimen) 04/06/2018 8:30 PM EDT 04/06/2018 8:30 PM EDT Lida Peter MD POINT OF CARE TEST O RDERABLES Performing Organization Address [facility] Co de Phone Number [facility] [place] [address] * Request For 2nd Read CT Chest [...] the chest, abdomen, and pelvis performed at [facility] on 04/06/2018. 5 mm and 1 mm [...] Spleen: Normal. Kidneys/Adrenals: The RIGHT and LEFT [place] kidneys are severely atrophic. The patient status [...] chest, abdomen, and pelvis performed at an [facility] on 04/06/2018. 5 mm and 1 mm [...] Spleen: Normal. Kidneys/Adrenals: The RIGHT and LEFT [place] kidneys are severely atrophic.The patient status post [...] 5:40 PM EDT) Neutrophil % 85.6 % [facility] Neutrophil Absolute 7.32(H) 1.70 - 6.10 x10(3)/mc L [facility] Lymph % 4.8 % [facility] Lymphocytes Abs 0.4(L) 0.9 - 3.2 x10(3)/mc L [facility] Monocyte % 9.1 % [facility] Monocyte Abs 0.8 0.3 - 0.9 x10(3)/mc L [facility] Eos % 0.0 % [facility] Eosinophils Abs 0.0 0.0 - 0.4 x10(3)/mc L [facility] Basophil % 0.0 % [facility] Baso Absolute 0.0 0.0 - [...] Immature Gran Absolute 0.04 0.00 - 0.04 x10(3)/ L [facility] Blood specimen (specimen) 04/06/2018 5:40 PM EDT 04/06/2018 6:01 PM EDT Narrative Resulting Agency Comment Spec In Lab Natalya Minaya MD HEMATOLOGY ORDERABLE S [facility] [place] [address] * (ABNORMAL) Hemogram (04/06/2018 5:40 PM EDT) White Blood Cell 8.6 4.0 - 9.5 x10(3)/[facility] Red Blood Cell 2.56(L) 4.58 - 5.54 x10(6)/[facility] Hemoglobin 7.8(L) 13.7 - 16.5 gm/dL [facility] Hematocrit 23.1(L) 40.5 - 48.5 % [facility] Mean Cell Volume 90.2 82.9 - 93.1 [facility] Mean Cell Hemoglobin 30.5 27.5 - 32.1 pg [facility] Mean Cell Hemoglobin Concentration 33.8 32.0 - 35.7 gm/dL [facility] Platelet 95(L) 145 - 357 x10(3)/[facility] RDW Standard Deviation 53.6(H) 36.0 - 45.0 [facility] RDW coefficient of variation 16.6(H) 11.4 - 13.8 % [facility] Mean Platelet Volume 9.5 7.6 - 12.9 [facility] NRBC% auto 0.0 % [facility] NRBC Absolute 0.000 0.000 - 0.000 x10(3)/[facility] Blood specimen (specimen) 04/06/2018 5:40 PM EDT 04/06/2018 6:01 PM EDT Narrative Resulting Agency Comment Spec In Lab Natalya Minaya MD HEMATOLOGY ORDERABLE S Performing Organization Address [facility] Co de Phone Number [facility] [place] [address] * Phosphorus (04/06/2018 5:40 PM EDT) Phosphorus 3.3 2.5 - 4.5 mg/dL [facility] Blood specimen (specimen) 04/06/2018 5:40 PM EDT 04/06/2018 6:01 PM EDT Narrative Resulting Agency Comment Spec In Lab Lida Peter MD CHEMISTRY ORDERABLES Performing Organization Address [facility] Co de Phone Number [facility] [place] [address] * (ABNORMAL) Magnesium (04/06/2018 5:40 PM EDT) Magnesium 0.60(L) 0.69 - 1.07 mmol/L [facility] Blood specimen (specimen) 04/06/2018 5:40 PM EDT 04/06/2018 6:01 PM EDT Narrative Resulting Agency Comment Spec In Lab Lida Peter MD CHEMISTRY ORDERABLES Performing Organization Address [facility] Co de Phone Number [facility] [place] [address] * (ABNORMAL) Cardiac Enzymes (LEB/CGP) (04/06/2018 5:40 PM EDT) Troponin-T 0.20(H) 0.00 - 0.00 ng/mL [facility] Comment: The 99th percentile for Troponin T is less than 0.01 ng/mL, any detectable cTnT concentration using this assay should be considered elevated. According to the third universal definition of myocardial infarction the following criteria with a clinical presentation consistent with acute myocardial ischemia meets the diagnosis for a myocardial infarction (DC). Detection of a rise and/or fall of cTnT, with at least one value greater than the 99th percentile (> or = 0.01) and with at least one of the following ?? Symptoms of ischemia ?? New or presumed new significant QR-[id number]-U wave (ST-T) changes or new left bundle [...] additional sample may be indicated. Reference: Third [place] Definition of Myocardial Infarction. Journal of the [place] [employer] 2012;60:1581-98 Creatine Kinase 249(H) 0 - 200 unit/L [facility] Blood specimen (specimen) 04/06/2018 5:40 PM EDT 04/06/2018 6:01 PM EDT Narrative Resulting Agency Comment Spec In Lab Lida Peter MD CHEMISTRY ORDERABLES [facility] [place] [address] * (ABNORMAL) CMP w/fasting Glucose (04/06/2018 5:40 PM EDT) Glucose Fasting 140(H) 65 - 99 mg/dL [facility] Comment: ?Fasting* Glucose Interpretive Criteria [...] of Diabetes Mellitus, Position Statement from the [place] [employer]. ??Diabetes Care, Volume 33, Supplement 1, Jul 2009 Blood Urea Nitrogen 45(H) 10 - 20 mg/dL [facility] Creatinine 2.48(H) 0.80 - 1.50 mg/dL [facility] Sodium 145 135 - 145 mmol/L [facility] [facility] Potassium 5.2(H) 3.5 - 5.0 mmol/L [facility] Comment: Please note: ??Patients with WBC >100,000 may have falsely elevated Potassium levels. ??For accurate Potassium quantification in these patients send serum separator tube (gold top) for subsequent determinations. ??Contact the Clinical Chemistry Laboratory if there are any questions. Chloride 118(H) 98 - 107 mmol/L [facility] Carbon Dioxide 16(L) 22 - 31 mmol/L [facility] Anion Gap 11 5 - 15 mmol/L [facility] Calcium 6.7(Criti constance) 8.5 - 10.5 mg/dL [facility] Comment:Calcium not critical when adjusted for albumin concentration. Protein, Total 4.3(L) 6.1 - 8.0 gm/dL [facility] Albumin 2.3(L) 3.2 - 5.2 gm/dL [facility] Aspartate Aminotransferase 22 0 - 39 unit/L [facility] Alanine Aminotransferase 20 0 - 55 unit/L [facility] Alkaline Phosphatase 57 40 - 120 unit/L [facility] Bilirubin, Total 0.3 0.2 - 1.3 mg/dL [facility] Est Glomerular Filtration Rate 28(L) >=60 mL/min/1. 73 m?? [facility] Comment: The eGFR was calculated using the CKD-EPI equation. As with all creatinine based estimates of kidney function, eGFR values calculated with the CKD-EPI equation are not accurate in patients with acute kidney failure, extremes of body mass or the acutely ill. [email or web address] eGFR 32(L) >=60 mL/min/1. 73 m?? [facility] Comment: The eGFR was calculated using the CKD-EPI equation. As with all creatinine based estimates of kidney function, eGFR values calculated with the CKD-EPI equation are not accurate in patients with acute kidney failure, extremes of body mass or the acutely ill. [email or web address] Blood specimen (specimen) 04/06/2018 5:40 PM EDT 04/06/2018 6:01 PM EDT Narrative Resulting Agency Comment Spec In Lab Lida Peter MD CHEMISTRY ORDERABLES Performing Organization Address [facility] Co de Phone Number [facility] [place] [address] * APTT (04/06/2018 5:40 PM EDT) Partial Thromboplastin Time 30 25 - 37 sec [facility] Comment: The PTT is NOT appropriate for heparin monitoring. Use the Anti-Xa level for heparin monitoring (HEP UFH) or LMWH monitoring (HEP LMW). A PTT less than 37 seconds generally indicates adequate hemostasis. Blood specimen (specimen) 04/06/2018 5:40 PM EDT 04/06/2018 6:01 PM EDT Narrative Resulting Agency Comment Spec In Lab Lida Peter MD HEMATOLOGY ORDERABLE S Performing Organization Address [facility] Co de Phone Number [facility] [place] [address] * (ABNORMAL) Prothrombin Time (04/06/2018 5:40 PM EDT) Prothrombin Time 24.1(H) 9.4 - 12.5 sec [facility] International Normalization Ratio 2.2 [facility] Comment: An INR <2.0 indicates [...] Lab Lida Peter MD HEMATOLOGY ORDERABLE S [facility] [place] [address] * (ABNORMAL) BLOOD GAS 2 ARTERIAL (04/06/2018 5:24 PM EDT) pH, Arterial 7.29(Crit ical) 7.35 - 7.45 [facility] Comment:Noted by instrumentation engineer. PCO2, Arterial 31(L) 35 - 45 mmHg [facility] PO2, Arterial 65(L) 85 - 104 mmHg [facility] Bicarbonate, Arterial 15.2(L) 20.0 - 26.0 mmol/L [facility] Base Excess, Arterial -11.8(L) -3.0 - 3.0 mmol/L [facility] Hgb Blood Gas 8.4(L) 13.7 - 16.5 gm/dL [facility] Oxyhemoglobin, Arterial 93.0(L) 94.0 - 97.0 % [facility] Carboxyhemoglo bin, Arterial 0.3 % [facility] Comment: Nonsmokers: 0.5-1.5% COHB Smokers: Variable, but usually less than 10% Toxic: 20-30% COHB Lethal: Greater than 60% COHB Methemoglobin, Arterial 0.9 <=1.5 % [facility] Na Whole Blood 140 135 - 145 mmol/L [facility] K Whole Blood 5.0 3.5 - 5.0 mmol/L [facility] Comment: Please note: Patients with WBC >100,000 may have falsely elevated Potassium levels. Contact the Clinical Chemistry Laboratory if there are any questions. ICa Whole Blood 1.03(L) 1.15 - 1.33 mmol/L [facility] Comment: Note: ??Total bilirubin higher than 20 mg/dL may lead to falsely low ionized calcium. CL Whole Blood 119(H) 98 - 107 mmol/L [facility] Gluc Whole Bld 141 65 - 199 mg/dL [facility] Comment:Diabetes: >=200 mg/d L plus symptoms. Lactate WB 2.4(H) 0.5 - 2.2 mmol/L [facility] FIO2 Art 50 % [facility] PF Ratio Art 130 [facility] Temp Art 34.8 Celsius [facility] Blood specimen (specimen) 04/06/2018 5:24 PM EDT 04/06/2018 5:24 PM EDT Lida Peter MD POINT OF CARE TEST O RDERABLES Performing Organization Address [facility] Co de Phone Number [facility] [place] [address] * POCT Glucose (04/06/2018 5:10 PM EDT) Glucose, POC 147 65 - 199 mg/dL [facility] Comment: Supplemental ranges: <140 mg/dL before meals <180 mg/dL all other times of the day Blood specimen (specimen) 04/06/2018 5:10 PM EDT 04/06/2018 5:10 PM EDT Lida Peter MD POINT OF CARE TEST O RDERABLES Performing Organization Address [facility] Co de Phone Number [facility] [place] [address] * (ABNORMAL) BLOOD GAS 2 ARTERIAL (04/06/2018 4:04 PM EDT) pH, Arterial 7.27(Criti constance) 7.35 - 7.45 [facility] Comment:Noted by instrumentation engineer. PCO2, Arterial 34(L) 35 - 45 mmHg [facility] PO2, Arterial 152(H) 85 - 104 mmHg [facility] Bicarbonate, Arterial 15.2(L) 20.0 - 26.0 mmol/L [facility] Base Excess, Arterial -11.8(L) -3.0 - 3.0 mmol/L [facility] Hgb Blood Gas 8.1(L) 13.7 - 16.5 gm/dL [facility] Oxyhemoglobin, Arterial 97.7(H) 94.0 - 97.0 % [facility] Carboxyhemoglob in, Arterial 0.5 % [facility] Comment: Nonsmokers: 0.5-1.5% COHB Smokers: Variable, but usually less than 10% Toxic: 20-30% COHB Lethal: Greater than 60% COHB Methemoglobin, Arterial 0.3 <=1.5 % [facility] Na Whole Blood 140 135 - 145 mmol/L [facility] K Whole Blood 4.6 3.5 - 5.0 mmol/L [facility] Comment: Please note: Patients with WBC >100,000 may have falsely elevated Potassium levels. Contact the Clinical Chemistry Laboratory if there are any questions. ICa Whole Blood 1.01(L) 1.15 - 1.33 mmol/L [facility] Comment: Note: ??Total bilirubin higher than 20 mg/dL may lead to falsely low ionized calcium. CL Whole Blood 118(H) 98 - 107 mmol/L [facility] Gluc Whole Bld 137 65 - 199 mg/dL [facility] Comment:Diabetes: >=200 mg/d L plus symptoms. Lactate WB 3.1(H) 0.5 - 2.2 mmol/L [facility] Blood specimen (specimen) 04/06/2018 4:04 PM EDT 04/06/2018 4:04 PM EDT Lida Peter MD POINT OF CARE TEST O RDERABLES [facility] [place] [address] * Scan, Peripheral Blood (04/06/2018 3:53 PM EDT) Pathologist [facility] Plat estimate Decreased [facility] RBC Morphology Abnormal [facility] Ovalocytes 1-5 /HPF [facility] [place] Cells 1-5 /HPF [facility] Blood specimen (specimen) 04/06/2018 3:53 PM EDT 04/06/2018 4:05 PM EDT Narrative Resulting Agency Comment Spec In Lab Lida Peter MD HEMATOLOGY ORDERABLE S [facility] [place] [address] * (ABNORMAL) Differential, Automated (04/06/2018 3:53 PM EDT) [facility] Neutrophil % 80.4 % [facility] Neutrophil Absolute 8.28(H) 1.70 - 6.10 x10(3)/mc L [facility] Lymph % 6.8 % [facility] Lymphocytes Abs 0.7(L) 0.9 - 3.2 x10(3)/mc L [facility] Monocyte % 11.9 % [facility] Monocyte Abs 1.2(H) 0.3 - 0.9 x10(3)/mc L [facility] Eos % 0.0 % [facility] Eosinophils Abs 0.0 0.0 - 0.4 x10(3)/mc L [facility] Basophil % 0.1 % [facility] Baso Absolute 0.0 0.0 - 0.1 x10(3)/mc L [facility] Immature Gran % 0.80 % [facility] Comment: Immature granulocytes(IG's)percentage and absolute count will include metamyelocytes, myelocytes, and promyelocytes. Blood smears from CBCs yielding IG's will be scanned manually for concordance. If this scan disagrees with the automated IG or if promyelocytes are noted, a manual differential will be performed. Immature Gran Absolute 0.08(H) 0.00 - 0.04 x10(3)/mc L [facility] Blood specimen (specimen) 04/06/2018 3:53 PM EDT 04/06/2018 4:05 PM EDT Narrative Resulting Agency Comment Spec In Lab Lida Peter MD HEMATOLOGY ORDERABLE S [facility] [place] [address] * (ABNORMAL) Hemogram (04/06/2018 3:53 PM EDT) White Blood Cell 10.3(H) 4.0 - 9.5 x10(3)/ L [facility] Red Blood Cell 2.53(L) 4.58 - 5.54 x10(6)/ L [facility] Hemoglobin 7.7(L) 13.7 - 16.5 gm/dL [facility] Comment: This result has been called to MISAEL GRANT by Evon Woodard on 04 06 2018 at 1633, and has been read back. Hematocrit 23.2(L) 40.5 - 48.5 % [facility] Comment: This result has been called to MISAEL GRANT by Evon Woodard on 04 06 2018 at 1633, and has been read back. Mean Cell Volume 91.7 82.9 - 93.1 fL [facility] Mean Cell Hemoglobin 30.4 27.5 - 32.1 pg [facility] Mean Cell Hemoglobin Concentration 33.2 32.0 - 35.7 gm/dL [facility] Platelet 96(L) 145 - 357 x10(3)/ L [facility] RDW Standard Deviation 53.3(H) 36.0 - 45.0 fL [facility] RDW coefficient of variation 16.2(H) 11.4 - 13.8 % [facility] Mean Platelet Volume 9.0 7.6 - 12.9 fL [facility] NRBC% auto 0.0 % [facility] NRBC Absolute 0.000 0.000 - 0.000 x10(3)/mc L [facility] Blood specimen (specimen) 04/06/2018 3:53 PM EDT 04/06/2018 4:05 PM EDT Narrative Resulting Agency Comment Spec In Lab Lida Peter MD HEMATOLOGY ORDERABLE S Performing Organization Address [facility] Co de Phone Number [facility] [place] [address] * APTT (04/06/2018 3:53 PM EDT) Partial Thromboplastin Time 30 25 - 37 sec [facility] Comment: The PTT is NOT appropriate for heparin monitoring. Use the Anti-Xa level for heparin monitoring (HEP UFH) or LMWH monitoring (HEP LMW). A PTT less than 37 seconds generally indicates adequate hemostasis. Blood specimen (specimen) 04/06/2018 3:53 PM EDT 04/06/2018 4:05 PM EDT Narrative Resulting Agency Comment Spec In Lab Lida Peter MD HEMATOLOGY ORDERABLE S Performing Organization Address [facility] Co de Phone Number [facility] [place] [address] * (ABNORMAL) Prothrombin Time (04/06/2018 3:53 PM EDT) Prothrombin Time 22.5(H) 9.4 - 12.5 sec [facility] Comment:Called by: luisa, Read back by: donn thomas, Date/Time:04/06/18 16:20. International Normalization Ratio 2.0 [facility] Comment: An INR <2.0 indicates [...] Lab Lida Peter MD HEMATOLOGY ORDERABLE S [facility] [place] [address] * (ABNORMAL) BLOOD GAS 2 ARTERIAL (04/06/2018 3:41 PM EDT) pH, Arterial 7.22(Criti constance) 7.35 - 7.45 [facility] Comment:Noted by instrumentation engineer. PCO2, Arterial 39 35 - 45 mmHg [facility] PO2, Arterial 168(H) 85 - 104 mmHg [facility] Bicarbonate, Arterial 15.3(L) 20.0 - 26.0 mmol/L [facility] Base Excess, Arterial -12.4(L) -3.0 - 3.0 mmol/L [facility] Hgb Blood Gas 8.4(L) 13.7 - 16.5 gm/dL [facility] Oxyhemoglobin, Arterial 98.1(H) 94.0 - 97.0 % [facility] Carboxyhemoglob in, Arterial 0.2 % [facility] Comment: Nonsmokers: 0.5-1.5% COHB Smokers: Variable, but usually less than 10% Toxic: 20-30% COHB Lethal: Greater than 60% COHB Methemoglobin, Arterial 0.3 <=1.5 % [facility] Na Whole Blood 143 135 - 145 mmol/L [facility] K Whole Blood 4.6 3.5 - 5.0 mmol/L [facility] Comment: Please note: Patients with WBC >100,000 may have falsely elevated Potassium levels. Contact the Clinical Chemistry Laboratory if there are any questions. ICa Whole Blood 0.92(Criti constance) 1.15 - 1.33 mmol/L [facility] Comment: Noted by instrumentation engineer. Note: ??Total bilirubin higher than 20 mg/dL may lead to falsely low ionized calcium. CL Whole Blood 119(H) 98 - 107 mmol/L [facility] Gluc Whole Bld 158 65 - 199 mg/dL [facility] Comment:Diabetes: >=200 mg/d L plus symptoms. Lactate WB 3.2(H) 0.5 - 2.2 mmol/L [facility] Blood specimen (specimen) 04/06/2018 3:41 PM EDT 04/06/2018 3:41 PM EDT Lida Peter MD POINT OF CARE TEST O RDERABLES [facility] [place] [address] * (ABNORMAL) BLOOD GAS 2 ARTERIAL (04/06/2018 3:13 PM EDT) pH, Arterial 7.18(Criti constance) 7.35 - 7.45 [facility] Comment:Noted by instrumentation engineer. PCO2, Arterial 40 35 - 45 mmHg [facility] PO2, Arterial 228(H) 85 - 104 mmHg [facility] Bicarbonate, Arterial 14.8(L) 20.0 - 26.0 mmol/L [facility] Base Excess, Arterial -13.5(L) -3.0 - 3.0 mmol/L [facility] Hgb Blood Gas 9.4(L) 13.7 - 16.5 gm/dL [facility] Oxyhemoglobin, Arterial 98.3(H) 94.0 - 97.0 % [facility] Carboxyhemoglob in, Arterial 0.3 % [facility] Comment: Nonsmokers: 0.5-1.5% COHB Smokers: Variable, but usually less than 10% Toxic: 20-30% COHB Lethal: Greater than 60% COHB Methemoglobin, Arterial 0.3 <=1.5 % [facility] Na Whole Blood 141 135 - 145 mmol/L [facility] K Whole Blood 4.8 3.5 - 5.0 mmol/L [facility] Comment: Please note: Patients with WBC >100,000 may have falsely elevated Potassium levels. Contact the Clinical Chemistry Laboratory if there are any questions. ICa Whole Blood 1.12(L) 1.15 - 1.33 mmol/L [facility] Comment: Note: ??Total bilirubin higher than 20 mg/dL may lead to falsely low ionized calcium. CL Whole Blood 120(H) 98 - 107 mmol/L [facility] Gluc Whole Bld 125 65 - 199 mg/dL [facility] Comment:Diabetes: >=200 mg/d L plus symptoms. Lactate WB 2.8(H) 0.5 - 2.2 mmol/L [facility] Blood specimen (specimen) 04/06/2018 3:13 PM EDT 04/06/2018 3:13 PM EDT Lida Peter MD POINT OF CARE TEST O RDERABLES Performing Organization Address City/State/[facility] Co de Phone Number [facility] [place] [address] * (ABNORMAL) BLOOD GAS 2 ARTERIAL (04/06/2018 2:48 PM EDT) pH, Arterial 7.27(Criti constance) 7.35 - 7.45 [facility] Comment:Noted by instrumentation engineer. PCO2, Arterial 36 35 - 45 mmHg [facility] PO2, Arterial 379(H) 85 - 104 mmHg [facility] Bicarbonate, Arterial 16.1(L) 20.0 - 26.0 mmol/L [facility] Base Excess, Arterial -10.8(L) -3.0 - 3.0 mmol/L [facility] Hgb Blood Gas 9.7(L) 13.7 - 16.5 gm/dL [facility] Oxyhemoglobin, Arterial 98.5(H) 94.0 - 97.0 % [facility] Carboxyhemoglob in, Arterial 0.3 % [facility] Comment: Nonsmokers: 0.5-1.5% COHB Smokers: Variable, but usually less than 10% Toxic: 20-30% COHB Lethal: Greater than 60% COHB Methemoglobin, Arterial 0.3 <=1.5 % [facility] Na Whole Blood 142 135 - 145 mmol/L [facility] K Whole Blood 5.4(H) 3.5 - 5.0 mmol/L [facility] Comment: Please note: Patients with WBC >100,000 may have falsely elevated Potassium levels. Contact the Clinical Chemistry Laboratory if there are any questions. ICa Whole Blood 1.10(L) 1.15 - 1.33 mmol/L [facility] Comment: Note: ??Total bilirubin higher than 20 mg/dL may lead to falsely low ionized calcium. CL Whole Blood 117(H) 98 - 107 mmol/L [facility] Gluc Whole Bld 185 65 - 199 mg/dL [facility] Comment:Diabetes: >=200 mg/d L plus symptoms. Lactate WB 1.9 0.5 - 2.2 mmol/L [facility] Blood specimen (specimen) 04/06/2018 2:48 PM EDT 04/06/2018 2:48 PM EDT Lida Peter MD POINT OF CARE TEST O RDERABLES [facility] [place] [address] * (ABNORMAL) BLOOD GAS 2 ARTERIAL (04/06/2018 2:46 PM EDT) pH, Arterial 7.27(Criti constance) 7.35 - 7.45 [facility] Comment:Noted by instrumentation engineer. PCO2, Arterial 36 35 - 45 mmHg [facility] PO2, Arterial Not Perf 85 - 104 mmHg [facility] Bicarbonate, Arterial 16.2(L) 20.0 - 26.0 mmol/L [facility] Base Excess, Arterial -10.7(L) -3.0 - 3.0 mmol/L [facility] Hgb Blood Gas 9.3(L) 13.7 - 16.5 gm/dL [facility] Oxyhemoglobin, Arterial 98.9(H) 94.0 - 97.0 % [facility] Carboxyhemoglob in, Arterial 0.3 % [facility] Comment: Nonsmokers: 0.5-1.5% COHB Smokers: Variable, but usually less than 10% Toxic: 20-30% COHB Lethal: Greater than 60% COHB Methemoglobin, Arterial 0.3 <=1.5 % [facility] Na Whole Blood 143 135 - 145 mmol/L [facility] K Whole Blood 5.5(H) 3.5 - 5.0 mmol/L [facility] Comment: Please note: Patients with WBC >100,000 may have falsely elevated Potassium levels. Contact the Clinical Chemistry Laboratory if there are any questions. ICa Whole Blood 1.09(L) 1.15 - 1.33 mmol/L [facility] Comment: Note: ??Total bilirubin higher than 20 mg/dL may lead to falsely low ionized calcium. CL Whole Blood 118(H) 98 - 107 mmol/L [facility] Gluc Whole Bld 191 65 - 199 mg/dL [facility] Comment:Diabetes: >=200 mg/d L plus symptoms. Lactate WB 1.8 0.5 - 2.2 mmol/L [facility] Blood specimen (specimen) 04/06/2018 2:46 PM EDT 04/06/2018 2:46 PM EDT Lida Peter MD POINT OF CARE TEST O RDERABLES [facility] [place] [address] * (ABNORMAL) BLOOD GAS 2 ARTERIAL (04/06/2018 2:16 PM EDT) pH, Arterial 7.29(Criti constance) 7.35 - 7.45 [facility] Comment:Noted by instrumentation engineer. PCO2, Arterial 38 35 - 45 mmHg [facility] PO2, Arterial 423(H) 85 - 104 mmHg [facility] Bicarbonate, Arterial 17.9(L) 20.0 - 26.0 mmol/L [facility] Base Excess, Arterial -8.6(L) -3.0 - 3.0 mmol/L [facility] Hgb Blood Gas 9.7(L) 13.7 - 16.5 gm/dL [facility] Oxyhemoglobin, Arterial 98.7(H) 94.0 - 97.0 % [facility] Carboxyhemoglob in, Arterial 0.3 % [facility] Comment: Nonsmokers: 0.5-1.5% COHB Smokers: Variable, but usually less than 10% Toxic: 20-30% COHB Lethal: Greater than 60% COHB Methemoglobin, Arterial 0.3 <=1.5 % [facility] Na Whole Blood 137 135 - 145 mmol/L [facility] K Whole Blood 6.5(Critic al) 3.5 - 5.0 mmol/L [facility] Comment: Noted by instrumentation engineer. Please note: Patients with WBC >100,000 may have falsely elevated Potassium levels. Contact the Clinical Chemistry Laboratory if there are any questions. ICa Whole Blood 1.06(L) 1.15 - 1.33 mmol/L [facility] Comment: Note: ??Total bilirubin higher than 20 mg/dL may lead to falsely low ionized calcium. CL Whole Blood 117(H) 98 - 107 mmol/L [facility] Gluc Whole Bld 261(H) 65 - 199 mg/dL [facility] Comment:Diabetes: >=200 mg/d L plus symptoms. Lactate WB 1.1 0.5 - 2.2 mmol/L [facility] Blood specimen (specimen) 04/06/2018 2:16 PM EDT 04/06/2018 2:16 PM EDT Lida Peter MD POINT OF CARE TEST O RDERABLES Performing Organization Address [facility] Co de Phone Number [facility] [place] [address] * Anaerobic Culture (04/06/2018 2:15 PM EDT) Anaerobic Culture No anaerobic organisms isolated [facility] Fluid specimen (specimen) 04/06/2018 2:15 PM EDT 04/06/2018 2:34 PM EDT Comment:CULTURE LEFT ARM WOU ND Narrative Resulting Agency Comment Spec In Lab Lida Peter MD MICROBIOLOGY - GENER AL ORDERABLES Performing Organization Address [facility] Co de Phone Number [facility] [place] [address] * Body Fluid Culture, Aerobic (04/06/2018 2:15 PM EDT) Body Fluid Culture Few normal cutaneous shaina [facility] Gram Stain Few Neutrophils seen No microorganisms seen. [facility] Fluid specimen (specimen) 04/06/2018 2:15 PM EDT 04/06/2018 2:34 PM EDT Comment:CULTURE LEFT ARM WOU ND Narrative Resulting Agency Comment Spec In Lab Lida Peter MD MICROBIOLOGY - GENER AL ORDERABLES Performing Organization Address [facility] Co de Phone Number [facility] [place] [address] * (ABNORMAL) BLOOD GAS 2 ARTERIAL (04/06/2018 1:53 PM EDT) pH, Arterial 7.24(Criti constance) 7.35 - 7.45 [facility] Comment:Noted by instrumentation engineer. PCO2, Arterial 38 35 - 45 mmHg [facility] PO2, Arterial 388(H) 85 - 104 mmHg [facility] Bicarbonate, Arterial 15.7(L) 20.0 - 26.0 mmol/L [facility] Base Excess, Arterial -11.8(L) -3.0 - 3.0 mmol/L [facility] Hgb Blood Gas 10.8(L) 13.7 - 16.5 gm/dL [facility] Oxyhemoglobin, Arterial 98.8(H) 94.0 - 97.0 % [facility] Carboxyhemoglob in, Arterial 0.3 % [facility] Comment: Nonsmokers: 0.5-1.5% COHB Smokers: Variable, but usually less than 10% Toxic: 20-30% COHB Lethal: Greater than 60% COHB Methemoglobin, Arterial 0.3 <=1.5 % [facility] Na Whole Blood 141 135 - 145 mmol/L [facility] K Whole Blood 6.7(Critic al) 3.5 - 5.0 mmol/L [facility] Comment: Noted by instrumentation engineer. Please note: Patients with WBC >100,000 may have falsely elevated Potassium levels. Contact the Clinical Chemistry Laboratory if there are any questions. ICa Whole Blood 1.00(L) 1.15 - 1.33 mmol/L [facility] Comment: Note: ??Total bilirubin higher than 20 mg/dL may lead to falsely low ionized calcium. CL Whole Blood 117(H) 98 - 107 mmol/L [facility] Gluc Whole Bld 219(H) 65 - 199 mg/dL [facility] Comment:Diabetes: >=200 mg/d L plus symptoms. Lactate WB 1.2 0.5 - 2.2 mmol/L [facility] Blood specimen (specimen) 04/06/2018 1:53 PM EDT 04/06/2018 1:53 PM EDT Lida Peter MD POINT OF CARE TEST O RDERABLES [facility] [place] [address] * Request For 2nd Read CT Head [...] RBC, Urine 21(H) 0 - 3 /HPF [facility] WBC, Urine 8(H) 0 - 3 /HPF [facility] Bacteria, Urine Occasional (A) None /HPF [facility] Squamous Epithelial Cells Raw Data, Urine 1 <=4 /HPF [facility] Granular Casts, Urine 1(H) <=0 /LPF [facility] Urine specimen obtained by clean catch procedure (specimen) 04/06/2018 1:25 PM EDT 04/06/2018 1:30 PM EDT Narrative Resulting Agency Comment Spec In Lab Fabian Burkett MD URINE ORDERABLES [facility] [place] [address] * Rapid Drug Screen w/o Confirmation, Urine (04/06/2018 1:25 PM EDT) Barbiturates Screen, Urine None Detected None Detected [facility] Comment: The barbiturate screen detects [...] Benzodiazepines Screen, Urine None Detected None Detected [facility] Comment: The benzodiazepines screen detects [...] Cocaine Screen, Urine None Detected None Detected [facility] Comment: The cocaine metabolites screen detects benzoylecgonine (Cocaine Metabolite) at concentrations >150 ng/mL. A ? Presumptive Positive? result indicates that the screening result was positive but has not yet been confirmed by a highly-specific method. As with any screen, occasional false positive results from cross-reacting substances may occur. Not for Medico-Legal Purposes. Methadone Metabolites Screen, Urine None Detected None Detected [facility] Comment: The methadone metabolite screen detects EDDP (major methadone metabolite) at concentrations >100 ng/mL. A ? Presumptive Positive? result indicates that the screening result was positive but has not yet been confirmed by a highly-specific method. As with any screen, occasional false positive results from cross-reacting substances may occur. Not for Medico-Legal Purposes. Opiate Screen, Urine None Detected None Detected [facility] Comment: The opiates screen detects [...] Cannabinoid Screen, Urine None Detected None Detected [facility] Comment: The marijuana metabolites screen detects the THC metabolite (76-mlj-1-carboxy-delta 9-THC) at concentrations >20 ng/mL. A ? Presumptive Positive? result indicates that the screening result was positive but has not yet been confirmed by a highly-specific method. As with any screen, occasional false positive results from cross-reacting substances may occur. Not for Medico-Legal Purposes. Oxycodone Screen, Urine None Detected None Detected [facility] Comment: The oxycodone screen detects oxycodone and oxymorphone at concentrations >100 ng/mL. A ? Presumptive Positive? result indicates that the screening result was positive but has not yet been confirmed by a highly-specific method. As with any screen, occasional false positive results from cross-reacting substances may occur. Not for Medico-Legal Purposes. Buprenorphine Screen, Urine None Detected None Detected [facility] Comment: The buprenorphine screen detects buprenorphine at concentrations >5 ng/mL. A ? Presumptive Positive? result indicates that the screening result was positive but has not yet been confirmed by a highly-specific method. As with any screen, occasional false positive results from cross-reacting substances may occur. Not for Medico-Legal Purposes. Fentanyl Screen, Urine None Detected None Detected [facility] Comment: The fentanyl screen detects fentanyl at concentrations >2 ng/mL. A ? Presumptive Positive? result indicates that the screening result was positive but has not yet been confirmed by a highly-specific method. As with any screen, occasional false positive results from cross-reacting substances may occur. Not for Medico-Legal Purposes. Tricyclics Screen, Urine None Detected None Detected [facility] Comment: The tricyclics screen detects [...] Ethanol Screen, Urine None Detected None Detected [facility] Comment:This urine ethanol a ssay detects ethanol at concentrations >/= 100 mg/L. Amphetamines Screen, Urine None Detected None Detected [facility] Comment: The amphetamine screen detects d-amphetamine and d-methamphetamine at concentrations >300 ng/mL. A ? Presumptive Positive? result indicates that the screening result was positive but has not yet been confirmed by a highly-specific method. As with any screen, occasional false positive results from cross-reacting substances may occur. Not for Medico-Legal Purposes. Adulterants Screen, Urine None Detected None Detected [facility] Comment: No adulteration or dilution of this urine sample was detected. All urine samples submitted for urine drugs of abuse analysis are tested for creatinine concentration, pH, and for the presence of oxidants, nitrites, and chromate. Urine specimen (specimen) 04/06/2018 1:25 PM EDT 04/06/2018 1:30 PM EDT Narrative Resulting Agency Comment Spec In Lab Fabian Burkett MD CHEMISTRY ORDERABLES [facility] [place] [address] * (ABNORMAL) Urinalysis with reflex Culture (04/06/2018 1:25 PM EDT) Glucose, Urine Dipstick 50(A) Negative mg/dL [facility] Protein, Urine [...] 8.0 [facility] Blood, Urine Dipstick Small(A) Negative mg/dL [facility] Ketone, Urine Dipstick Negative Negative mg/dL [facility] Nitrite, Urine Dipstick Negative Negative [facility] Leukocytes, Urine Dipstick Negative Negative mcL [facility] Appearance, Urine Dipstick Hazy(A) Clear [facility] Specific [place] Urine Automated 1.023 1.002 - 1.030 [facility] Color, Urine Dipstick Yellow Yellow [facility] Reflex to Culture No [facility] Urine specimen obtained by clean catch procedure (specimen) 04/06/2018 1:25 PM EDT 04/06/2018 1:30 PM EDT Narrative Resulting Agency Comment Spec In Lab Erwin Hernandez MD URINE ORDERABLES [facility] [place] [address] * Rapid Drug Screen, Urine (RAUL Request) (04/06/2018 1:25 PM EDT) RAUL Conf Requested No [facility] Comment: Collection date/time has been modified to: 13:25:00. ??Previous collection date/time: 13:03:00. Corrected from No [NA] on 04/06/18 01:32 by Crystal MuellerU Requested See Comment [facility] Comment: Refer to Rapid Drug Screen w/o Confirmation, Urine for results. Collection date/time has been modified to: 13:25:00. ??Previous collection date/time: 13:03:00. Corrected from See Comment [NA] on 04/06/18 01:32 by Crystal Mueller Urine specimen (specimen) 04/06/2018 1:25 PM EDT 04/06/2018 1:30 PM EDT Narrative Resulting Agency Comment Spec In Lab Erwin Hernandez MD URINE ORDERABLES Performing Organization Address City/[facility]/ZIP Co de Phone Number [facility] [place] [address] * CK (04/06/2018 1:15 PM EDT) Creatine Kinase 168 0 - 200 unit/L [facility] Blood specimen (specimen) Venous Draw / Unknown 04/06/2018 1:15 PM EDT 04/06/2018 2:22 PM EDT Narrative Resulting Agency Comment Spec In Lab Kavon Rob MD CHEMISTRY ORDERABLES Performing Organization Address City/[facility]/ZIP Co de Phone Number [facility] [place] [address] * Scan, Peripheral Blood (04/06/2018 1:15 PM EDT) Plat estimate Normal [facility] RBC Morphology Abnormal [facility] Ovalocytes 1-5 /HPF [facility] Yovanny Cells 1-5 /HPF [facility] Blood specimen (specimen) 04/06/2018 1:15 PM EDT 04/06/2018 1:24 PM EDT Narrative Resulting Agency Comment Spec In Lab Fabian Burkett MD HEMATOLOGY ORDERABLE S [facility] [place] [address] * ABORH Recheck Status (04/06/2018 1:15 PM EDT) ABORH Type Recheck Completed [facility] Blood specimen (specimen) 04/06/2018 1:15 PM EDT 04/06/2018 1:20 PM EDT Narrative Resulting Agency Comment Spec In Lab Faiban Burkett MD BLOOD BANK LAB ORDER KELLY [facility] [place] [address] * Blue Tube HOLD (04/06/2018 1:15 PM EDT) Blue Hold Sample in lab. [facility] Blood specimen (specimen) Venous Draw / Unknown 04/06/2018 1:15 PM EDT 04/06/2018 1:26 PM EDT Fabian Burkett MD HEMATOLOGY ORDERABLE S Performing Organization Address City/[facility]/ZIP Co de Phone Number [facility] [place] [address] * Gold Tube HOLD (04/06/2018 1:15 PM EDT) Gold Hold Sample in lab. [facility] Blood specimen (specimen) Venous Draw / Unknown 04/06/2018 1:15 PM EDT 04/06/2018 1:25 PM EDT Fabian Burkett MD CHEMISTRY ORDERABLES [facility] [place] [address] * Blue Tube HOLD (04/06/2018 1:15 PM EDT) Blue Hold Sample in lab. [facility] Blood specimen (specimen) Venous Draw / Unknown 04/06/2018 1:15 PM EDT 04/06/2018 1:26 PM EDT Fabian Burkett MD HEMATOLOGY ORDERABLE S [facility] [place] [address] * (ABNORMAL) Differential, Automated (04/06/2018 1:15 PM EDT) Neutrophil % 78.7 % [facility] Neutrophil Absolute 12.22(H) 1.70 - 6.10 x10(3)/mc L [facility] Lymph % 10.3 % [facility] Lymphocytes Abs 1.6 0.9 - 3.2 x10(3)/ L [facility] Monocyte % 9.8 % [facility] Monocyte Abs 1.5(H) 0.3 - 0.9 x10(3)/mc L [facility] Eos % 0.1 % [facility] Eosinophils Abs 0.0 0.0 - 0.4 x10(3)/[facility] Basophil % 0.2 % [facility] Baso Absolute 0.0 0.0 - 0.1 x10(3)/ L [facility] Immature Gran % 0.90 % [facility] Comment: Immature granulocytes(IG's)percentage and absolute count will include metamyelocytes, myelocytes, and promyelocytes. Blood smears from CBCs yielding IG's will be scanned manually for concordance. If this scan disagrees with the automated IG or if promyelocytes are noted, a manual differential will be performed. Immature Gran Absolute 0.14(H) 0.00 - 0.04 x10(3)/mc L [facility] Blood specimen (specimen) 04/06/2018 1:15 PM EDT 04/06/2018 1:24 PM EDT Narrative Resulting Agency Comment Spec In Lab Fabian Burkett MD HEMATOLOGY ORDERABLE S [facility] [place] [address] * (ABNORMAL) Hemogram (04/06/2018 1:15 PM EDT) White Blood Cell 15.5(H) 4.0 - 9.5 x10(3)/mc L [facility] Red Blood Cell 3.80(L) 4.58 - 5.54 x10(6)/mc L [facility] Hemoglobin 11.5(L) 13.7 - 16.5 gm/dL [facility] Hematocrit 35.2(L) 40.5 - 48.5 % [facility] Mean Cell Volume 92.6 82.9 - 93.1 fL [facility] Mean Cell Hemoglobin 30.3 27.5 - 32.1 pg [facility] Mean Cell Hemoglobin Concentration 32.7 32.0 - 35.7 gm/dL [facility] Platelet 145 145 - 357 x10(3)/mc L [facility] RDW Standard Deviation 53.2(H) 36.0 - 45.0 [facility] RDW coefficient of variation 15.9(H) 11.4 - 13.8 % [facility] Mean Platelet Volume 9.0 7.6 - 12.9 [facility] NRBC% auto 0.0 % [facility] NRBC Absolute 0.000 0.000 - 0.000 x10(3)/mc L [facility] Blood specimen (specimen) 04/06/2018 1:15 PM EDT 04/06/2018 1:24 PM EDT Narrative Resulting Agency Comment Spec In Lab Fabian Burkett MD HEMATOLOGY ORDERABLE S [facility] [place] [address] * Antibody screen (04/06/2018 1:15 PM EDT) Ab Screen Interp Negative [facility] Expires at [id number] on: 04/09/2018 [facility] Blood specimen (specimen) 04/06/2018 1:15 PM EDT 04/06/2018 1:20 PM EDT Narrative Resulting Agency Comment Spec In Lab Fabian Burkett MD BLOOD BANK LAB ORDER KELLY [facility] [place] [address] * ABO/Rh Typing (04/06/2018 1:15 PM EDT) ABORH Type A Pos [facility] Comment: 04/06/2018 15:10 ??CHASDM ABO/Rh determined (Acc# [id number]) to be A pos. Blood specimen (specimen) 04/06/2018 1:15 PM EDT 04/06/2018 1:20 PM EDT Narrative Resulting Agency Comment Spec In Lab Fabian Burkett MD BLOOD BANK LAB ORDER KELLY Performing Organization Address City/[facility]/ZIP Co de Phone Number [facility] [place] [address] * Fibrinogen (04/06/2018 1:15 PM EDT) Pathologist [facility] Fibrinogen 255 200 - 393 mg/dL [facility] Comment: A fibrinogen level >100 mg/dL is adequate for hemostasis in most patients without underlying bleeding disorders. Blood specimen (specimen) 04/06/2018 1:15 PM EDT 04/06/2018 1:24 PM EDT Narrative Resulting Agency Comment Spec In Lab Erwin Hernandez MD HEMATOLOGY ORDERAB LES [facility] [place] [address] * Ethanol Level (04/06/2018 1:15 PM EDT) Ethanol <100 <=99 mg/L [facility] Comment: Greater than 800 mg/L (0.08%) should be considered intoxicated. 3400 to 4500 mg/L (0.34 - 0.45%) is considered severe intoxication. Greater than 5500 mg/L (0.55%) is usually fatal. Blood specimen (specimen) 04/06/2018 1:15 PM EDT 04/06/2018 1:24 PM EDT Narrative Resulting Agency Comment Spec In Lab Erwin Hernandez MD CHEMISTRY ORDERABL ES Performing Organization Address [facility] Co de Phone Number [facility] [place] [address] * APTT (04/06/2018 1:15 PM EDT) Partial Thromboplastin Time 31 25 - 37 sec [facility] Comment: The PTT is NOT appropriate for heparin monitoring. Use the Anti-Xa level for heparin monitoring (HEP UFH) or LMWH monitoring (HEP LMW). A PTT less than 37 seconds generally indicates adequate hemostasis. Blood specimen (specimen) 04/06/2018 1:15 PM EDT 04/06/2018 1:24 PM EDT Narrative Resulting Agency Comment Spec In Lab Erwin Hernandez MD HEMATOLOGY ORDERAB LES Performing Organization Address [facility] Co de Phone Number [facility] [place] [address] * (ABNORMAL) Prothrombin Time (04/06/2018 1:15 PM EDT) Prothrombin Time 29.1(H) 9.4 - 12.5 sec [facility] International Normalization Ratio 2.6 [facility] Comment: An INR <2.0 indicates [...] Lab Erwin Hernandez MD HEMATOLOGY ORDERAB LES [facility] [place] [address] * (ABNORMAL) Basic Metabolic Panel (non-fasting) (04/06/2018 1:15 PM EDT) Glucose 219(H) 65 - 199 mg/dL [facility] Comment:Diabetes: >=200 mg/d L plus symptoms Blood Urea Nitrogen 39(H) 10 - 20 mg/dL [facility] Creatinine 2.01(H) 0.80 - 1.50 mg/dL [facility] Sodium 140 135 - 145 mmol/L [facility] Potassium 5.2(H) 3.5 - 5.0 mmol/L [facility] Comment: Please note: ??Patients with WBC >100,000 may have falsely elevated Potassium levels. ??For accurate Potassium quantification in these patients send serum separator tube (gold top) for subsequent determinations. ??Contact the Clinical Chemistry Laboratory if there are any questions. Chloride 116(H) 98 - 107 mmol/L [facility] Carbon Dioxide 15(L) 22 - 31 mmol/L [facility] Anion Gap 9 5 - 15 mmol/L [facility] Calcium 4.9(Criti constance) 8.5 - 10.5 mg/dL [facility] Comment:Called by: lorelei, Read back by: misael luong_, Date/Time:04/06/18 14:04. Est Glomerular Filtration Rate 36(L) >=60 mL/min/1. 73 m?? [facility] Comment: The eGFR was calculated using the CKD-EPI equation. As with all creatinine based estimates of kidney function, eGFR values calculated with the CKD-EPI equation are not accurate in patients with acute kidney failure, extremes of body mass or the acutely ill. http://[employer]/[facility]nk[facility] eGFR 42(L) >=60 mL/min/1. 73 m?? [facility] Comment: The eGFR was calculated using the CKD-EPI equation. As with all creatinine based estimates of kidney function, eGFR values calculated with the CKD-EPI equation are not accurate in patients with acute kidney failure, extremes of body mass or the acutely ill. http://[employer]/[facility] Blood specimen (specimen) 04/06/2018 1:15 PM EDT 04/06/2018 1:24 PM EDT Narrative Resulting Agency Comment Spec In Lab Erwin Hernandez MD CHEMISTRY ORDERABL ES [facility] [place] [id number] * XR Chest AP and Pelvis AP [...] pH, Arterial 7.14(Criti constance) 7.35 - 7.45 [facility] Comment:Noted by instrumentation engineer. PCO2, Arterial 51(H) 35 - 45 mmHg [facility] PO2, Arterial 38(Critica l) 85 - 104 mmHg [facility] Comment:Noted by instrumentation engineer. Bicarbonate, Arterial 16.7(L) 20.0 - 26.0 mmol/L [facility] Base Excess, Arterial -12.4(L) -3.0 - 3.0 mmol/L [facility] Hgb Blood Gas 12.3(L) 13.7 - 16.5 gm/dL [facility] Oxyhemoglobin, Arterial 69.1(L) 94.0 - 97.0 % [facility] Carboxyhemoglob in, Arterial 0.3 % [facility] Comment: Nonsmokers: 0.5-1.5% COHB Smokers: Variable, but usually less than 10% Toxic: 20-30% COHB Lethal: Greater than 60% COHB Methemoglobin, Arterial 0.4 <=1.5 % [facility] Na Whole Blood 137 135 - 145 mmol/L [facility] K Whole Blood 6.3(Critic al) 3.5 - 5.0 mmol/L [facility] Comment: Noted by instrumentation engineer. Please note: Patients with WBC >100,000 may have falsely elevated Potassium levels. Contact the Clinical Chemistry Laboratory if there are any questions. ICa Whole Blood 1.01(L) 1.15 - 1.33 mmol/L [facility] Comment: Note: ??Total bilirubin higher than 20 mg/dL may lead to falsely low ionized calcium. CL Whole Blood 112(H) 98 - 107 mmol/L [facility] Gluc Whole Bld 258(H) 65 - 199 mg/dL [facility] Comment:Diabetes: >=200 mg/d L plus symptoms. Lactate WB 2.0 0.5 - 2.2 mmol/L [facility] Blood specimen (specimen) 04/06/2018 1:14 PM EDT 04/06/2018 1:14 PM EDT Erwin Hernandez MD POINT OF CARE TEST ORDERABLES [facility] [place] [address] * Prepare RBC (04/06/2018 1:05 PM EDT) Dispensed? Yes [facility] Blood specimen (specimen) 04/06/2018 1:05 PM EDT 04/06/2018 1:03 PM EDT Erwin Hernandez MD BLOOD BANK PRODUCT ORDERABLES Performing Organization Address [facility] Co de Phone Number [facility] [place] [address] * Film Library- Storage Only CT Chest Abdomen Pelvis (04/06/2018 12:05 AM EDT) Narrative [facility] - 04/06/2018 2:07 PM EDT This exam is for storage only and is auto-finalizing. Fabian Burkett MD [facility] [place] FILM LIBRARY ORD ERABLES Performing Organization Address [facility] de Phone Number [place], [place] * SCAN DOC: IMPLANTABLE DEVICES (04/06/2018 12:00 AM EDT) Narrative 04/06/2018 12:00 AM EDT Ordered by an unspecified provider. Scanning Provider MEDIA MGR SCAN EXT O RDR/RSLT * Film Library- Storage Only CT Head And Spine (04/06/2018 12:00 AM EDT) Narrative [facility] - 04/06/2018 1:32 PM EDT This exam is for storage only and is auto-finalizing. Fabian Burkett MD [facility] [place] FILM LIBRARY ORD ERABLES Performing Organization Address [facility] de Phone Number [place], [place] * SCAN DOC: LAB (04/06/2018 12:00 AM EDT) Narrative 04/06/2018 12:00 AM EDT Ordered by an unspecified provider. Scanning Provider MEDIA MGR SCAN EXT O RDR/RSLT * SCAN DOC: BEEF BREAKER (04/06/2018 12:00 AM EDT) Anatomical Region Laterality Modality Other Narrative 04/06/2018 12:00 AM EDT Ordered by an unspecified provider. Scanning Provider MEDIA MGR SCAN EXT O RDR/RSLT documented in this encounter Visit Diagnoses Not on filedocumented in this encounter Admitting Diagnoses Diagnosis Hemorrhagic [...] 04/07/18 at 0900, Until Discontinued, Routine Given 05/04/2018 9:24 AM EDT 150 mg Given 05/03/2018 9:00 AM EDT 150 mg Given 05/02/2018 8:41 AM EDT 150 mg bisacodyl (DULCOLAX) suppository 10 mg 10 mg, Rectal, DAILY PRN, Starting on Wed04/19/18 at 0522, Until Wed05/04/18 at 1520, Constipation, Routine BUpivacaine-EPINEPHrine 0.25 %-1:200,000 injection ONCE PRN, Starting on Wed04/26/18 at 1223, Until Wed05/04/18 at 1520, Intra-Operative (Intra-Procedure), Routine Given 04/26/2018 12:24 PM EDT 22 mLs 19- Surgical Site Given 04/26/2018 12:23 PM EDT 8 mLs 1 9- Surgical Site ciprofloxacin (CIPRO) tablet 500 mg 500 mg, Oral, 2 TIMES DAILY, First dose on Wed04/26/18 at 0700, Until Discontinued, Routine, Indication for (Active or Suspected): Skin/Skin Structure Given 05/04/2018 6:04 AM EDT 500 mg Given 05/03/2018 6:42 PM EDT 500 mg Given 05/03/2018 6:17 AM EDT 500 mg dilTIAZem (DILTIAZEM CD) ER capsule 120 mg 120 mg, Oral, DAILY, First dose on Wed04/12/18 at 1745, Until Discontinued, DO NOT CRUSH OR OPEN, Routine Given 05/04/2018 9:27 AM EDT 120 mg Given 05/03/2018 9:00 AM EDT 120 mg Given 05/02/2018 8:42 AM EDT 120 mg heparin (Porcine) subcutaneous injection 5,000 Units 5,000 Units, Subcutaneous, EVERY 12 HOURS SCHEDULED (2 times per day), First dose on Wed04/21/18 at 0900, Until Discontinued, Routine Given 05/04/2018 9:29 AM EDT 5,000 Units Given 05/03/2018 9:00 PM EDT 5,000 Units Given 05/03/2018 9:01 AM EDT 5,000 Units hydrALAZINE (APRESOLINE) injection 20 mg 20 mg, [...] Given 04/08/2018 4:31 AM EDT 0.3 mg labetalol (NORMODYNE,TRANDATE) injection 20 mg 20 mg, Intravenous, EVERY 4 HOURS PRN, Starting on Wed04/24/18 at 2335, Until Wed05/04/18 at 1520, High Blood Pressure, For SBP > 160. Use before hydralazine, Do not give if HR < 80., Routine levETIRAcetam (KEPPRA) tablet 250 mg 250 mg, Oral, DAILY, First dose on Wed04/07/18 at 2100, Until Discontinued, Routine Given 05/03/2018 9:09 PM EDT 250 mg Given 05/02/2018 9:01 PM EDT 250 mg Given 05/01/2018 8:23 PM EDT 250 mg levETIRAcetam (KEPPRA) tablet 500 mg 500 mg, Oral, DAILY, First dose on Mariza 04/07/18 at 0900, Until Discontinued, Routine Given 05/04/2018 9:27 AM EDT 500 mg Given 05/03/2018 8:59 AM EDT 500 mg Given 05/02/2018 8:42 AM EDT 500 mg levothyroxine (SYNTHROID) tablet 88 mcg 88 mcg, Oral, EVERY MORNING, First dose on Wed04/08/18 at 0600, Until Discontinued, Routine Given 05/04/2018 6:05 AM EDT 88 mcg Given 05/03/2018 6:18 AM EDT 88 mcg Given 05/02/2018 5:03 AM EDT 88 mcg LORazepam (ATIVAN) injection 2 mg 2 mg, Intravenous, EVERY 4 HOURS PRN, Starting on Wed04/08/18 at 1422, Until Wed05/04/18 at 1520, Seizures, Alert team of seizure then retrieve medication, Routine Given 04/09/2018 6:32 PM EDT 2 mg Given 04/09/2018 2:11 PM EDT 1 mg losartan (COZAAR) tablet 50 mg 50 mg, Oral, EVERY MORNING, First dose (after last modification) on Wed04/22/18 at 0700, Until Discontinued, Routine Given 05/04/2018 6:05 AM EDT 50 mg Given 05/03/2018 6:20 AM EDT 50 mg Given 05/02/2018 6:07 AM EDT 50 mg metoprolol tartrate (LOPRESSOR) tablet 50 [...] Given 05/03/2018 8:59 AM EDT 500 mg mineral oil topical liquid ONCE PRN, Starting on Wed04/26/18 at 1434, Until Wed05/04/18 at 1520, Intra-Operative (Intra-Procedure), Routine Given 04/26/2018 2:34 PM EDT 25 mLs 19- Surgical Site mycophenolate (CELLCEPT) capsule 250 mg 250 mg, [...] EVERY 8 HOURS PRN, Starting on Mariza 04/07/18 at 0936, Until Wed05/04/18 at 1520, Nausea [...] 15 mg oxyCODONE (ROXICODONE) immediate release tablet 5 mg 5 mg, Oral, EVERY 4 HOURS PRN, Starting on Wed04/10/18 at 0736, Until Wed05/04/18 at 1520, Pain, mild pain (1-3), May give additional 5 mg in 30 minutes once if pain not relieved., Routine pantoprazole (PROTONIX) tablet 20 mg 20 mg, Oral, 2 TIMES DAILY, First dose on Wed04/07/18 at 0900, Until Discontinued, DO NOT CRUSH OR OPEN Given 05/04/2018 9:22 AM EDT 20 mg Given 05/03/2018 8:37 PM EDT 20 mg Given 05/03/2018 9:02 AM EDT 20 mg polyethylene glycol (MIRALAX) packet 17 g 17 g, Oral, DAILY, First dose on Wed04/19/18 at 0900, Until Discontinued, Routine Given 05/04/2018 9:21 AM EDT 17 g Given 05/03/2018 9:01 AM EDT 17 g Given 05/02/2018 9:07 AM EDT 17 g senna-docusate (PERICOLACE) 8.6-50 mg per tablet 2 [...] 2:55 PM EDT 650 mg sodium chloride 0.9 % flush 5 mL 5 mL, Intravenous, EVERY 12 HOURS, First dose on Wed04/06/18 at 1800, Until Discontinued, Routine Given 05/04/2018 9:00 AM EDT 5 mLs Given 05/03/2018 8:38 PM EDT 5 mLs Given 05/03/2018 9:02 AM EDT 5 mLs tacrolimus (PROGRAF) capsule 1 mg [...] 05/02/2018 8:43 AM EDT 1.5 mg vancomycin 500 mg vial attach to sodium [...] Bag 05/03/2018 7:24 PM EDT 500 mg 200 mL/hr New Bag 05/02/2018 5:36 PM EDT [...] Reason: Patient/family refused)2313 (Given - Provider: Margarita Blevins RN) 0605 (Given - Provider: Margarita Blevins RN)1200 (Due) allopurinol (ZYLOPRIM) tablet 150 mg 150 mg, Oral, DAILY, First dose on Wed04/07/18 at 0900, Until Discontinued, Routine 0841 (Given - Provider: Torri Adame RN) 0900 (Given - Provider: Domi Rodriguez RN) 0924 (Given - Provider: Danny Quispe RN) ciprofloxacin (CIPRO) tablet 500 mg 500 mg, Oral, 2 TIMES DAILY, First dose on Wed04/26/18 at 0700, Until Discontinued, Routine, Indication for (Active or Suspected): Skin/Skin Structure 0607 (Given - Provider: Naz Robbins, SAVANNA)1958 (Given - Provider: Torri Angelo RN) 0617 (Given - Provider: Torri Angelo RN)1842 (Given - Provider: Domi Rodriguez, SAVANNA) 0604 (Given - Provider: Margarita Blevins, SAVANNA) dilTIAZem (DILTIAZEM CD) ER capsule 120 mg 120 mg, Oral, DAILY, First dose on Wed04/12/18 at 1745, Until Discontinued, DO NOT CRUSH OR OPEN, Routine 0842 (Given - Provider: Torri Adame RN) 0900 (Given - Provider: Domi Rodriguez RN) 09 (Given - Provider: Danny Quispe, SAVANNA) heparin (Porcine) subcutaneous injection 5,000 Units 5,000 Units, Subcutaneous, EVERY 12 HOURS SCHEDULED (2 times per day), First dose on Wed04/21/18 at 0900, Until Discontinued, Routine 0842 (Given - Provider: Torri Adame RN)210 (Given - Provider: Torri Angelo RN) 09 (Given - Provider: Domi Rodriguez, SAVANNA)2099 (Given - Provider: Margarita Blevins, SAVANNA) 09 (Given - Provider: Danny Quispe, SAVANNA) hydrALAZINE (APRESOLINE) tablet 50 mg 50 mg, Oral, 3 TIMES DAILY, First dose (after last modification) on Wed04/21/18 at 0900, Until Discontinued, Take with Food, Routine 0907 (Given - Provider: Lalitha Mack, SAVANNA)1434 (Given - Provider: Lalitha Mack, RN)205 (Given - Provider: Torri Angelo RN) 0900 (Given - Provider: Domi Rodriguez, SAVANNA)1455 (Given - Provider: Domi Rodriguez, SAVANNA)203 (Given - Provider: Margarita Blevins, SAVANNA) 0932 (Given - Provider: Danny Quispe, SAVANNA) levETIRAcetam (KEPPRA) tablet 250 mg 250 mg, Oral, DAILY, First dose on Wed04/07/18 at 2100, Until Discontinued, Routine 2100 (Given - Provider: Torri Angelo RN) 2108 (Given - Provider: Margarita Blevins, SAVANNA) levETIRAcetam (KEPPRA) tablet 500 mg 500 mg, Oral, DAILY, First dose on Wed04/07/18 at 0900, Until Discontinued, Routine 0842 (Given - Provider: Torri Adame RN) 0859 (Given - Provider: Domi Rodriguez, RN) 09 (Given - Provider: Danny Quispe RN) levothyroxine (SYNTHROID) tablet 88 mcg 88 mcg, Oral, EVERY MORNING, First dose on Wed04/08/18 at 0600, Until Discontinued, Routine 0503 (Given - Provider: Naz Robbins RN) 0618 (Given - Provider: Torri Angelo RN) 0605 (Given - Provider: Margarita Blevins, SAVANNA) losartan (COZAAR) tablet 50 mg 50 mg, Oral, EVERY MORNING, First dose (after last modification) on Wed04/22/18 at 0700, Until Discontinued, Routine 0607 (Given - Provider: Naz Robbins RN) 0620 (Given - Provider: Torri Angelo RN) 0605 [...] Domi Rodriguez, SAVANNA)2110 (Given - Provider: Margarita Blevins, SAVANNA) 0605 (Given - Provider: Margarita Blevins, SAVANNA) metroNIDAZOLE (FLAGYL) tablet 500 mg 500 mg, Oral, 2 TIMES DAILY, First dose on Wed04/26/18 at 0900, Until Discontinued, Routine, Indication for (Active or Suspected): Anaerobic infection-Skin/Skin Structure 0841 (Given - Provider: Torri Adame RN)210 (Given - Provider: Torri Angelo, SAVANNA) 0859 (Given - Provider: Domi Rodriguez, SAVANNA)203 (Given - Provider: Margarita Blevins RN) 922 (Given - Provider: Danny Quispe, RN) mycophenolate (CELLCEPT) capsule 250 mg 250 mg, Oral, 2 TIMES DAILY, First dose on Wed04/07/18 at 0700, Until Discontinued, DO NOT CRUSH OR OPEN Administer to patient on empty stomach (1 hour before or two hours after a meal)., Routine 606 (Given - Provider: Naz Robbins RN)1957 (Given - Provider: Torri Angelo RN) 616 (Given - Provider: Torri Angelo, SAVANNA)1841 (Given - Provider: Domi Rodriguez, RN) 604 (Given - Provider: Margarita Blevins RN) oxyCODONE [...] RN)2101 (Given - Provider: Torri Angelo RN) 901 (Given - Provider: Domi Rodriguez, SAVANNA)2036 (Given - Provider: Margarita Blevins, SAVANNA) 921 (Given - Provider: Danny Quispe, SAVANNA) polyethylene glycol (MIRALAX) packet 17 g 17 g, Oral, DAILY, First dose on Wed04/19/18 at 0900, Until Discontinued, Routine 906 (Given - Provider: Lalitha Mack RN) 900 (Given - Provider: Domi Rodriguez, RN) 920 (Given - Provider: Danny Quispe, SAVANNA) senna-docusate (PERICOLACE) 8.6-50 mg per tablet 2 tablet 2 tablet, Oral, 2 TIMES DAILY, First dose on Wed04/19/18 at 0900, Until Discontinued, Routine 0900 (Not Given - Provider: Lalitha Mack RN - Reason: Order parameters not met - Comment: +BM 05/01 - soft)2100 (Given - Provider: Torri Angelo RN) 09 (Given - Provider: Domi Rodriguez RN)2037 (Given - Provider: Margarita Blevins RN) 09 (Given - Provider: Danny Quispe, SAVANNA) sodium bicarbonate tablet 650 mg 650 mg, Oral, 3 TIMES DAILY, First dose on Wed04/12/18 at 1745, Until Discontinued, Routine 0907 (Given - Provider: Lalitha Mack RN)1435 (Given - Provider: Lalitha Mack RN)2101 (Given - Provider: Torri Angelo RN) 0859 (Given - Provider: Domi Rodriguez RN)1455 (Given - Provider: Domi Rodriguez RN)2036 (Given - Provider: Margarita Blevins, SAVANNA) 0922 (Given - Provider: Danny Quispe, SAVANNA) sodium chloride 0.9 % flush 5 mL 5 mL, Intravenous, EVERY 12 HOURS, First dose on Wed04/06/18 at 1800, Until Discontinued, Routine 0848 (Given - Provider: Torri Adame RN)2103 (Not Given - Provider: Torri Angelo RN - Reason: See comment - Comment: Infusing) 09 (Given - Provider: Domi Rodriguez RN)2037 (Given - Provider: Margarita Blevins, SAVANNA) 0900 (Given - Provider: Danny Quispe, SAVANNA) tacrolimus (PROGRAF) capsule 1 mg 1 mg, Oral, NIGHTLY, First dose (after last modification) on Wed04/13/18 at 2100, Until Discontinued, Routine 2101 (Given - Provider: Torri Angelo RN) 2036 (Given - Provider: Margarita Blevins, SAVANNA) tacrolimus (PROGRAF) capsule 1.5 mg 1.5 mg, Oral, DAILY, First dose on Wed04/13/18 at 1700, Until Discontinued, Routine 0843 (Given - Provider: Torri Adame, RN) 0900 (Given - Provider: Domi Rodriguez, RN) 0922 (Given - Provider: Danny Quispe RN) vancomycin 500 mg vial attach to sodium [...] Routine, Indication for (Active or Suspected): Bacteremia/Sepsis 173 (New Bag - Provider: Lalitha Mack, SAVANNA)1806 (Stopped - Provider: Torri Angelo, SAVANNA) 1924 (New Bag - Provider: Margarita Blevins, SAVANNA)1954 (Stopped - Provider: Margarita Blevins RN) Vancomycin [...] time to assure a timely blood draw. 1730 (Lab Order Released - Provider: Domi Rodriguez RN) Vancomycin Level - MAR Order Reminder [...] Routine documented in this encounter Care Teams Diversity Manager Relationship Specialty Start Date End Date Carroll Garcia DO [address] [place] [address] PCP - General 09/23/11 10/20/22 documented as of this encounter
--- OUTSIDE RECORDS SUMMARY | 2024-04-22 11:03 | XMS_ITS | Encounter Summary ---
Author Organization [facility] Address [facility] [place] [address] Care Team Providers Care Knitter Operator Name Role Phone Alfredo Carroll MIX Primary Care Provider [phone] Reason for Visit * Auth/Cert Specialty Diagnoses / Procedures Referred By Contmike t Referred To Contact Diagnoses Hypertension, unspecified type Hemorrhagic shock left arm open wounds s/p fistula repair and fasciotomies Procedures @REPAIR, RUPTURED AXILLARY OR BRACHIAL ARTERY ANEURYSM BY ARM INCISION (WRVU *) DEBRIDEMENT SKIN, SUBCU, MUSCLE, UPPER EXTREMITY (WRVU 2.7) Referral ID Status Reason Start Date Expiration Date Visits Re quested Visits Authorized [id number] 1 1 Encounter Details Date Type Department Care Team (Late st Contact Info) Description 04/19/2018 7:24 AM EDT Anesthesia Event [place] [id number] Cornel Rueda MD [facility] [address] Kvng Chauhan MD [facility] [place] [address] Anesthesia Record Procedure Summary Procedure Name Responsible Anesthesiologist Anesthesia Start Time Anesthesia Stop Time LIGATION OR BANDING OF HEMODIALYSIS FISTULA OR GRAFT UPPER EXTREMITY (WRVU 6.25) (Left: Arm Lower) Cornel Rueda MD 04/19/18 0724 04/19/18 0955 Events Date Time Event Comment 04/19/2018 0724 AN Verify 0724 Start 0724 An Start Data 07 0727 An Induction 0728 An Intubation 0740 Anesthesia Ready 0949 Extubation/LMA Out 0949 an stop data 0955 Recovery or ICU Handoff Randa ent care was transferred to the destination unit staff after review of the patient's medical history, current anesthetic/surgical status and plan, according to the Provider Handoff Checklist. 0955 Stop Meds Name Total fentaNYL 75 mcg IV Lidocaine 50 mg Propofol 300 mg ePHEDrine 25 mg ceFAZolin (ANCEF) 1g in dextrose 5% 50mL 2 g Lactated Ringers 500 mL * Agents Name O2 Air N2O Sevoflurane (et) * Blood No blood administrations on file. Lines, Drains, and Airways Type Details Placement Removal Incision 02/05/16; face; 04/19/18; 92502/05/16 0000 by Jennifer Rueda RN 04/19/18925 by Karuna Nagel RN Incision 02/20/16; neck; vertical; 04/19/18; 92602/20/16 0000 by Dee Dee Servin RN 04/19/18 09 by Karuna Nagel RN Incision 02/20/16; thigh; oth er (see comments) (skin graft donor site); 04/19/18; 92602/20/16 0000 by Dee Dee Servin RN 04/19/18926 by Karuna Nagel RN Incision 05/31/17; 1145; abdomen; laparoscopic puncture (port sites for left kidney ); 04/19/18; 92605/31/17 1145 by Leslie oGmez RN 04/19/18 09 by Karuna Nagel RN Incision 04/06/18; 1345; arm; vertical; LDA not present upon assessment; 04/19/18; 95004/06/18 1345 by Bhargav Gomez RN 04/19/18950 by Karuna Nagel RN (RETIRED) Peripheral IV Line - Single Lumen 04/08/18; 2113; cephalic vein (lateral side of arm), right; [id number] catheter system; 22 gauge; catheter/device intact; 04/26/18; 91804/08/182112 by Anup Lopez RN 04/26/18918 by Veronica Holt RN Supraglottic Mask Ventilation: No t Attempted (0); LMA Type: iGel; LMA Size: 4; Inserted by: md dick; Removal Date: 04/19/18; Removal Time: 94804/19/18 07 by Kvng Chauhan MD 04/19/18 0949 by Kvng Chauhan MD documented in this encounter Social History [...] OR Notes * Anesthesia Postprocedure Evaluation - Cornel Rueda MD - 04/19/2018 10:17 AM EDT [facility] [place] Department of Anesthesiology Post-procedure Note Patient: Adama Ram Procedure Summary Date Anesthesia Start Anesthesia Stop Room / Location 04/19/18 0724 0955 [facility] OR [facility] MAIN OR Procedure Diagnosis Surgeon Responsible Provider LIGATION OR BANDING OF HEMODIALYSIS FISTULA OR GRAFT UPPER EXTREMITY (WRVU 6.25) (Left Arm Lower); DRESSING CHANGE (VAC ASSISTED) UP TO 50SQ.CM (WRVU 0.55) (Left ) (left distal AVF with ?infection) Odalis Elias MD Taenzer, Andreas H, MD All Anesthesia Providers: Anesthesiologist: Cornel Rueda MD Emergency Man: Kvng Chauhan MD Most Recent Vitals: 04/19/18 1015 BP: 159/83 Pulse: 64 Resp: 23 Temp: SpO2: 97% Pain Patient Location: PACU/SD Level of Consciousness: Awake and Alert Pain Management: Satisfactory Analgesia PONV: None Cardiovascular Status: At Baseline and Hemodynamically Stable Respiratory Status: At Baseline and Room Air Postoperative Fluid Status: Intravascular EUvolemia Possible Anesthetic Complications: NONE apparent at time of evaluation Final Primary Anesthesia Type: General (The anesthetic type performed was the same as planned.) Comments: CORNEL RUEDA MD * Anesthesia Preprocedure Evaluation - Cornel Rueda MD - 04/18/2018 3:11 PM EDT Images from the original note were not included. Pre-Anesthesia Evaluation for: Adama Ram a 57 y.o. male. Procedure(s): LIGATION OR BANDING OF HEMODIALYSIS FISTULA OR GRAFT LOWER EXTREMITY (VU 6.25) Patient Active Problem List Diagnosis ??? Hemorrhagic [...] [facility] OR ??? PRO REBL VES GRAFT, UP EXTREM Left 04/06/2018 REPAIR BLOOD VESSEL WITH GRAFT OTHER THAN VEIN, UPPER EXTREMITY (WRVU 15.83) performed by Lida Peter MD at [facility] OR ??? PRO RELIEVE PRESSURE ON NERVE(S) Left 04/06/2018 (MSURG) CARPAL TUNNEL (WRVU 4.82) performed by Silviano Sparks MD at [facility] OR ??? PRO REPAIR INTERMEDIATE [...] (WRVU 4.97) performed by Lida Peter MD [facility] MAIN OR ? ? PRO SPLIT GRFT, [...] US RENAL TRANSPLANT BIOPSY 12/31/2010 Social History Substance Use Topics ??? Smoking status: Former Smoker Packs/day: 0.25 Years: 1.50 Types: Cigarettes Quit date: 12/03/2000 ??? Smokeless tobacco: Former User Quit date: 04/14/2001 ??? Alcohol use No History Drug Use No Comment: havent in /1995 Allergies Allergen Reactions ??? Benazepril Hcl ??? Codeine Other (See Comments) Patient does not know reaction ??? Hydrochlorothiazide ??? Pollen Extracts Sneezing/runny nose Medications: MAR and/or home medications have been reviewed. Physical Exam: Most Recent Vitals: 04/18/18 1137 BP: (!) 164/104 Pulse: Resp: 16 Temp: 37 ??C (98.6 ??F) SpO2: 99% Body mass index is 27.21 kg/(m^2). Height: 178 cm (5' 10.08) Weight: 86.2 kg (190 lb 0.6 oz) Airway Assessment: Mallampati: II TM distance: >3 FB Neck ROM: full Cardiovascular Assessment: cardiovascular exam normal Pulmonary Assessment: pulmonary exam normal Dental Assessment: Misc Assessment: IV access: Peripheral line Anesthesia Plan: ASA 3 general, with a(n) intravenous induction 57 y.o. male with hx of ESRD s/p emergent repair of ruptured LUE AVF and resulting PEA arrest. Now scheduled for ligation/banding of LUE fistula and vac change w/ Dr. Elias. Anesthetic History: easy MV, previous grade 1 w/ Mac 4, report of severe bradycardia unresponsive to glyco Allergies reviewed Labs reviewed Exercise tolerance: unable to assess EKG: sinus bradycardia Echocardiogram: 04/28 EF 65%, no WMAs, no significant valve disease NPO Status: appropriate Anesthetic Plan: GA w/ ETT/LMA Standard ASA monitoring PIV access Kvng Chauhan MD 04/18/2018 Region - Other Informed Consent: Anesthetic plan and risks discussed with patient. Use of blood products discussed with patient who consented to blood products. Plan discussed with resident. PAT Staff Note documented in this encounter Plan of Treatment Not on file documented as of this encounter Visit Diagnoses Not on filedocumented in this encounter Administered Medications Inactive Administered Medications - up to 3 most recent administrations Medication Order MAR Action Action Date Dose Rate Site ceFAZolin (ANCEF) 1g in dextrose 5% 50mL 1 g, Intravenous, EVERY 8 HOURS, First dose (after last modification) on Wed04/12/18 at 0900, Until Discontinued, Administer over 30 Minutes, Indication for (Active or Suspected): Skin/Skin Structure New Bag 04/20/2018 12:02 AM EDT 1 g 100 mL/hr New Bag 04/19/2018 4:06 PM EDT 1 g 100 mL/hr Given 04/19/2018 8:03 AM EDT 2 g ePHEDrine 5 mg/mL multi-dose injection PRN, Starting on Wed04/19/18 at 0748, Until Wed04/19/18 at 0957, Anesthesia Intra-op, Routine Given 04/19/2018 9:12 AM EDT 5 mg Given 04/19/2018 9:00 AM EDT 5 mg Given 04/19/2018 7:58 AM EDT 10 mg fentaNYL 50 mcg/mL multi-dose injection PRN, Starting on 04/19/18 at 0834, Until 04/19/18 at 0957, Pain, Anesthesia Intra-op, Routine Given 04/19/2018 9:35 AM EDT 25 mcg Given 04/19/2018 8:34 AM EDT 50 mcg lactated Ringers infusion CONTINUOUS PRN, Starting on 04/19/18 at 0724, Until 04/19/18 at 0957, Anesthesia Intra-op New Bag 04/19/2018 7:24 AM EDT lidocaine (PF) (XYLOCAINE) 100 mg/5 mL (2 %) injection PRN, Starting on 04/19/18 at 0727, Until 04/19/18 at 0957, Anesthesia Intra-op, Routine Given 04/19/2018 7:27 AM EDT 50 mg propofol (DIPRIVAN) 10 mg/mL bolus injection (Anesthesia) PRN, Starting on 04/19/18 at 0727, Until 04/19/18 at 0957, Anesthesia Intra-op Given 04/19/2018 9:36 AM EDT 20 mg Given 04/19/2018 9:27 AM EDT 30 mg Given 04/19/2018 8:21 AM EDT 50 mg documented in this encounter Care Teams Knitter Operator Relationship Specialty Start Date End Date Carroll Fuentes DO [address] [place] [address] [address] [place] [address] PCP - General 09/23/11 10/20/22 documented as of this encounter
--- OUTSIDE RECORDS SUMMARY | 2024-04-22 11:03 | XMS_ITS | Encounter Summary ---
Author Organization [facility] Address [facility] [place] [address] Care Team Providers Care Pool Cleaner Name Role Phone Alfredo, Carroll MXI Primary Care Provider [phone] Reason for Visit * Reason Comments Trauma [...] Expiration Date Visits Re quested Visits Authorized [id number] 1 1 Encounter Details Date Type Department Care Team (Late st Contact Info) Description 04/19/2018 7:30 AM EDT - 04/19/2018 9:19 AM EDT Surgery [place] [address] Odalis Elias MD [facility] [place] [address] LIGATION OR BANDING OF HEMODIALYSIS FISTULA OR GRAFT UPPER EXTREMITY (WRVU 6.25) Social History Tobacco Use Types Packs/Day Years [...] Sign Reading Time Taken Comments Blood Pressure 162/105 04/18/2018 10:54 PM EDT Pulse 56 04/18/2018 4:51 AM EDT Temperature 36.9 ??C (98.4 ??F) 04/18/2018 10:54 PM E DT Respiratory Rate 16 04/18/2018 10:54 PM EDT Oxygen Saturation 100% 04/18/2018 10:54 PM EDT Inhaled Oxygen Concentration - - [...] ml/min ??? 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 H/O [...] epilepsy, and prior TBI who presents to [facility] s/p LUE bleeding with PEA arrest. Description [...] Pt intubated in field. Pt taken to [facility], where second tourniquet applied and pt received 6U PRBC. Transferred to [facility] for further care. Of note, per Dr. [...] Studies: none Discharge Conditions/Prognosis: Good Discharge to: [facility] [address] [place] [id number] Discharge Medications: Your Medications New Medications Dose [...] draw weekly CBC/CMP with results sent to [facility] Infectious disease. See wound care instructions below. [...] For any problems or questions please call [phone] YEIMY Fallon, process pumper Nurse Clinician For issues on weeknights after 5pm and weekends please call [phone] and ask for the Vascular Fellow intervention teacher. General Instructions Plastic Surgery Wound Care Instructions [...] about scheduling, please contact our administrative officesat [phone] For clinical questions, please call our nurses at [phone] Both offices are open Wednesday thru Wednesday 8a - 5p. With emergencies after hours, call the hospital airconditioning plant operator at [phone] and ask for the Plastic Surgery Resident intervention teacher. Future Appointments and Orders Future Appointments and Orders Future Appointments Provider Department Dept Phone 05/17/2018 10:20 AM Laina Disla APRN Plastic Surgery at [place] Arrive at: Records Technician Area 4M [phone] 05/17/2018 11:30 AM Kurt Medina MD Infectious Disease at [place] Arrive at: Records Technician Area 5C [phone] 05/17/2018 12:30 PM Nilda Minaya RN Vascular Surgery at [place] Arrive at: Records Technician Area 3V [phone] 05/27/2018 10:15 AM Lida Peter MD Vascular Surgery at [place] Arrive at: Records Technician Area 3V [phone] 08/18/2018 10:30 AM Chanel Smith MD Dermatology at [facility] [phone] Future Orders Complete By Expires OPAT: Order / Recommendation for Post Discharge IV Antibiotic Management [QJR678 CPT(R)] As directed Process Instructions: If no progress note charted, please enter Clinical details in comments. Scheduling Instructions: Comments: Please Fax all results to: OPAT Program Infectious Disease Section [facility], [place] [address] FAX: Line care instructions per [facility] OPAT Program protocol. After hours, please contact the Infectious Disease Physician intervention teacher at . If this order was signed greater than 72 hours prior to [facility] discharge, please call to confirm the accuracy [...] about scheduling, please contact our administrative officesat [phone] For clinical questions, please call our nurses at [phone] Both offices are open Wednesday thru Wednesday 8a - 5p. With emergencies after hours, call the hospital airconditioning plant operator at [phone] and ask for the Plastic Surgery Resident intervention teacher. * Patient Instructions* Nilda Minaya RN - [...] For any problems or questions please call [phone] YEIMY Fallon, process pumper Nurse Clinician For issues on weeknights after 5pm and weekends please call [phone] and ask for the Vascular Fellow intervention teacher. documented in this encounter Medications at Time [...] AM EDT Pt accepted bed offer at [facility] for transfer today. Pt qualifies for ambulance transfer due to being on bed alarm while here, being impulsive and history of TBI. Pt will be transferred at Noon via [place] [facility]. I called pt brother Lucas to inform. He was with JANICE Guzman from [facility] [facility]. Our SW Bia spoke with Lucas as well about continuing the LT Medicaid application process. Nurse to Nurse report number given to pt's staff nurse Danny. Discharge envelope started; still needed discharge summary, medication sheets and prescription added. Please call CM if needed for further pt discharge needs. Padmini Ruiz RN [phone] * Reynaldo Jade - 05/04/2018 8:58 AM EDT Office of Care Management/Medical Detailist Patient Name: Christy Ambrose : 1960 Patient has been offered a SNF bed at [facility] for today, 05/04/18 [facility] arranged for a 12:00 pm transport. Ambulance will need: Medicare ambulance form completed and signed (MD or Ignition Expert RN/WIRING MECHANIC) Copy of patient demographics [place] [facility] DNR/DNI order, if active No MD to MD report necessary Please call Nursing Report to [phone], ask for orthoptist. Info to accompany patient: Narcotic Prescriptions Copies of Medication Administration Records and IV sheets for past 10 days. Plan: Medical Detailist will be available to the patient and Ignition Expert-RN and/or Social Workerfor further assistance. Patient will be discharged to: [address] [address] Reynaldo Jade, Medical Detailist * Chasidy Monahan PA - 05/04/2018 7:47 [...] AM Laina Disla APRN [facility] 4M [facility] 05/17/2018 11:30 AM Kurt Medina MD [facility]c 5C [facility] 05/17/2018 12:30 PM Nilda Minaya RN [facility] V Surg [facility] 08/18/2018 10:30 AM Chanel Smith MD [facility] PANCHITO Rios Pager: [phone] * Nayeli Wilde, SAVANNA - 05/03/2018 8:29 PM EDT Images from the original note were not included. PRN dressing change Dressing prior to change Dressing after change * Natalya Wan MSW - 05/03/2018 5:01 PM EDT WIRING MECHANIC and RNTORIBIO Chaidez met with Christy, his mother Ilda (HDPOA), and his brother Lucas (HDPOA and FPOA). All three parties accepted a bed offer at [facility] for rehab and hope thatif a bed becomes available at [facility] Christy can be transferred. 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 * Nicole Hamilton LD - 05/03/2018 2:04 PM EDT Nutrition Progress Note Christy Ginna Ambrose is a 57 y.o. male Reason for intervention: Follow up Nutrition Recommendations: Could liberalize diet to [facility] Continue to monitor potassium trends Monitor weight [...] ml/min N18.4 ??? 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 intermediate current [...] encounter: 84.3 kg (185 lb 13.6 oz). [place] Body Weight (IBW): [place] body weight: 73.2 kg (161 lb 5.4 [...] intakes. Potassiumnormal, could consider liberalizing diet to [facility]/Cardiac. Patient denies any questions/concerns rega rding current diet. Will continue to monitor. JERICHO Marion Beeper #: [phone] * Javeir Nolan MD - 05/03/2018 7:44 AM EDT [...] by primary team Javier Nolan MD Pager: [phone] * Tristin Marrero MD - 05/03/2018 7:40 [...] ongoing. Angelina Marrero Vascular Surgery, PGY3 Pager #[phone] * Tristin Marrero MD - 05/02/2018 12:35 [...] recommendations. Angelina Marrero Vascular Surgery, PGY3 Pager #[phone] * Chasidy Monahan PA - 05/02/2018 9:16 [...] team PANCHITO Rios Plastic Surgery Team Pager: [phone] * Natalya Jacobsen MD - 05/01/2018 9:15 [...] Aditi Mccollum MD Plastic Surgery Resident P# [phone] * Natalya Jacobsen MD - 04/30/2018 9:23 [...] Aditi Mccollum MD Plastic Surgery Resident P# [phone] * Natalya Jacobsen MD - 04/29/2018 2:00 [...] General Surgery PGY-1 [id number] * Natalya Wan WIRING MECHANIC - 04/29/2018 11:21 AM EDT WIRING MECHANIC spoke with patients mother and [facility] [facility] WIRING MECHANIC who are following up today by completingChoices for Care application. Mother told WIRING MECHANIC patient was fully independent until this event. [...] 10:30 AM NURSE, PLASTIC SURGERY [facility] [address] [place] [address] CLIN 05/02/2018 12:30 PM Natalya Ojeda MD [facility] 08/18/2018 10:30 AM Chanel Smith MD [facility] Laura Bauman MD Plastic surgery team pager: [phone] 04/29/2018 6:48 AM * Tonie Kumar - 04/28/2018 2:37 PM EDT Narrative: Visited to introduce and assess acceptance of Obstetrics Tech services. Pt was awake, alert, oriented and [...] Provided emotional, spiritua support and encouraging presence. Obstetrics Tech services accepted.Conversation to build trusting relationship.Provided pastoral [...] 10:30 AM NURSE, PLASTIC SURGERY [facility] [address] [place] [address] CLIN 05/02/2018 12:30 PM Natalya Ojeda MD [facility] V S[facility] CL[facility] 08/18/2018 10:30 AM Chanel Smith MD [facility] PANCHITO Moser Plastic surgery team pager: [phone] 04/28/2018 8:12 AM Attending: Plan discussed and agree as documented. Hay Sparks MD Plastic Surgery * Danielle Poeples DO - 04/27/2018 3:42 PM EDT Infectious [...] questions Danielle Peoples, Infectious Disease Fellow Pager [phone] Associated attestation - Kurt Medina MD - [...] team PANCHITO Rios Plastic surgery team pager: [phone] 04/27/2018 8:46 AM Attending: Plan discussed and [...] stable - UOP adequate Thelma Solitario Pager: [phone] 04/27/18 * Domi Norman RN - 04/26/2018 [...] Note Recommendation/Plan: Diet at MD discretion, consider [facility] diet with K restriction May liberalize to [facility] if K is WNL Appreciate updated weights [...] / appropriate for Occupational Therapy Services. Pager [phone] NICKY Irizarry/John Occupational Therapy Rehabilitation Department * [...] team PANCHITO Rios Plastic surgery team pager: [phone] 04/26/2018 8:01 AM Attending: Pt seen and [...] Danielle Peoples DO Infectious Disease Fellow Pager [phone] Associated attestation - Kurt Medina MD - [...] for skin grafting (04/26) - NPO at [facility] - Obtain consent or OR tomorrow - no need to hold [facility] PANCHITO Rios Plastic surgery team pager: [phone] 04/25/2018 1:10 PM Attending: Plan discussed and [...] 27 27 27 Microbiology ?? Tissue culture [[id number]] (Abnormal) Collected: 04/19/18924 ? Lab Status: Preliminary [...] - skin grafting Wednesday - NPO at [place] Wednesday night - no need to hold [...] 27 27 27 Microbiology ?? Tissue culture [[id number]] (Abnormal) Collected: 04/19/18924 ? Lab Status: Preliminary [...] O: Telephone call received from Rachna Muro ([facility]) who reports that patient's Mother is already assigned to worker Lalitha. Rachna suggested I call Mother and remind her that she has made contact with the agency. Rachna cannot release any information to [facility] without a signed release. Management Consultant attempted to call Mother today, no answer, [...] PTT 27 27 27 Microbiology Tissue culture [[id number]] (Abnormal) Collected: 04/19/18924 ? Lab Status: Preliminary [...] just returned from ambulating unit3x w/ staff accountant. RN reports pt is supervision while ambulating to/from bathroom and requires min A for hygiene thoroughness. Pt deferred OT until tomorrow; pt education provided re: importance of frequent functional mobility and participation w/ ADL tasks. Will follow up as available / appropriate for Occupational Therapy Services. Pager [phone] Dania Ramirez. NICKY Oliveira/John Occupational Therapy Rehabilitation [...] PTT 27 27 27 Microbiology Tissue culture [[id number]] (Abnormal) Collected: 04/19/18924 ? Lab Status: Preliminary [...] continue current immunosuppression regimen. Appreciate input. [facility] Vascular Surgery * Kelsey Tyler, RD - [...] ml/min N18.4 ??? 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 intermediate current [...] encounter: 86.2 kg (190 lb 0.6 oz). [place] Body Weight (IBW): [place] body weight: 73.2 kg (161 lb 5.4 [...] Lombardi Beeper #: [phone] * Karis Mejia, WIRING MECHANIC - 04/20/2018 11:29 AM EDT Discharge Planning: O: Telephone call to patient's Mother Ilda who reports that she was unable to connect with her local [facility]. Unfortunately I believe that Ilda may be overwhelmed by patient's admission and events leading up to hospitalization. Ilda reports that there are repairs that need to be completed in the family home and that a staff member at [facility] (she cannot identify) has told her that patient can not return home. I offered support to Ilda and suggested that I would contact the [facility] and ask them to outreach to her. She was appreciative. Telephone call to Rachna Muro ([facility] [phone]), voice mail message relaying above information. P: Await call back from Rachna, continue to liaison with Mother and offer support around discharge planning. 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 -No acute indication for WAITER/WAITRESS FIRST CLASS ,,Strict intake and out put monitoring,Daily weights,Renal [...] PTT 27 27 27 Microbiology Tissue culture [[id number]] (Abnormal) Collected: 04/19/18924 ? Lab Status: Preliminary [...] regimen. Angelina Marrero Vascular Surgery, PGY3 Pager #[phone] * Karuna Nagel, RN - 04/19/2018 10:28 [...] Angelina Devries Elida Vascular Surgery, PGY3 Pager #[phone] * Selma Fontanez PTA - 04/18/2018 2:14 PM EDT Physical Therapy Note Patient having bedside vac change with pain meds. Will follow up with patient tomorrow. Selma Fontanez PTA Pager# [phone] * Tristin Marrero MD - 04/18/2018 12:22 [...] kidney disease. - No acute indication for WAITER/WAITRESS FIRST CLASS, Strict intake and out put monitoring, Daily [...] kidney disease. - No acute indication for WAITER/WAITRESS FIRST CLASS, Strict intake and out put monitoring, Daily [...] ml/min N18.4 ??? 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 intermediate current [...] performed by Miguel Angel Moreno MD at [facility] MAIN OR ??? PRO DECOMPRESS FOREARM, BRACH ART EXPLOR Left 04/06/2018 FASCIOTOMY, FOREARM, WITH BRACHIAL ARTERY EXPLORATION (WRVU 8.41) performed by Lida Peter MDat [facility] MAIN OR ??? PRO DIRECT REPAIR RUPTURED ANEURYSM, AXILLO-BRACHIAL ARM INCIS Left 04/06/2018 @REPAIR, RUPTURED AXILLARY OR BRACHIAL ARTERY ANEURYSM BY ARM INCISION (WRVU *) performed by Lida Peter MD at [facility] MAIN OR ??? PRO EXC PAROTD, TOTAL, UNILAT RAD NECK Left 02/05/2016 @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, TOTAL, WITH UNILATERAL RADICAL NECK DISSECTION performed by Miguel Angel Moreno MD at [facility] OR ??? PRO EXC SKIN MALIG 3.1-4CM FACE, FACIAL Left 02/05/2016 EXC MALIGNANT LESION, 3.1 TO 4.0CM, FACE performed by Miguel Angel Moreno MD at [facility] MAIN OR ? ? PRO EXC SKIN MALIG >4CM TRUNK, ARM, LEG 04/19/2012 EXC MALIGNANT LESION, MICHAEL > 4.0CM, TRUNK performed by SABRINA MEDRANO at [facility] OR ??? PRO LAP, RADICAL NEPHRECTOMY Left 05/31/2017 @LAPAROSCOPY, RADICAL NEPHRECTOMY (WRVU 25.06) performed by Jax Mills MD at [facility] OR ??? PRO REBL VES GRAFT, UP EXTREM Left 04/06/2018 REPAIR BLOOD VESSEL WITH GRAFT OTHER THAN VEIN, UPPER EXTREMITY (WRVU 15.83) performed by Lida Peter MD at [facility] OR ??? PRO RELIEVE PRESSURE ON NERVE(S) Left 04/06/2018 (MSURG) CARPAL TUNNEL (WRVU 4.82) performed by Hay Sparks MD at [facility] OR ??? PRO REPAIR INTERMEDIATE S/A/T/E 2.6-7.5 CM 04/19/2012 REPAIR INTERMEDIATE WOUND, (NO HANDS OR FEET) 2.6 TO 7.5CM, UPPER EXTREMITY performed by SABRINA MEDRANO at [facility] OR ? ? PRO REPAIR INTERMEDIATE S/A/T/E > 30.0 CM Left 04/14/2018 REPAIR INTERMEDIATE WOUND, (NO HANDS OR FEET) >30.0CM, UPPER EXTREMITY (WRVU 5) performed by Yimi Easton MD at [facility] OR ??? PRO REVISE MEDIAN N/CARPAL TUNNEL SURG Left 04/06/2018 MEDIAN NERVE DECOMPRESSION (CARPAL TUNNEL RELEASE) (WRVU 4.97) performed by Lida Peter MD [facility] MAIN OR ? ? PRO SPLIT GRFT, HEAD, FAC, HAND, FEET <100SQCM N/A 02/20/2016 SPLIT THICKNESS SKIN SPLIT GRAFT,100SQ CM OR LESS, NECK performed by Miguel Angel Moreno MD at [facility] MAIN OR ??? PRO UPPER GI ENDOSCOPY, BIOPSY N/A 05/13/2017 EGD WITH BIOPSY (WRVU 2.49) performed by Aditya Barrera MD at [facility] ENDOSCOPY ??? PRO VASCULAR SURGERY PROCEDURE UNLIST Left 11/20/2015 LIGATION\REPAIR AV FISTULA performed by Camilo Ireland MD at [facility] MAIN OR ??? PRO VASCULAR SURGERY PROCEDURE UNLIST Left 11/20/2015 EXCISION VEIN FROM HAND performed by Camilo Ireland MD at [facility] MAIN OR ??? US RENAL TRANSPLANT BIOPSY 12/31/2010 Reason for Nutrition Intervention: Initial assessment Diet Order: Regular Appetite: Good Food allergies: None documented Chewing/Swallowing difficulty: none, cleared for regular diet and thin liquids per PREVENTIVE MEDICINE OFFICER Estimated body mass index is 28.91 kg/(m^2) [...] being worked up for possible intracranial event. PREVENTIVE MEDICINE OFFICER cleared patient for regular diet and thin liquids. Patient has been tolerating this well, but per RN this morning he did not eat d/t nausea. Thiscould be attributed to pain meds on empty stomach. PREVENTIVE MEDICINE OFFICER and OT in with patient at time of attempt this morning, will check back in afternoon. Patient seen this afternoon having eaten ~50% of his lunch, appeared to still be eating as well. 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 He is not sure if he has [...] kidney disease. - No acute indication for WAITER/WAITRESS FIRST CLASS, Strict intake and out put monitoring, Daily [...] kidney disease. - No acute indication for WAITER/WAITRESS FIRST CLASS, Strict intake and out put monitoring, Daily weights, Renal dosing for medications - Hypertension: was on hydralazine 50 mg BID,diltiazem 120 mg XT daily ,metorpolol 50 mg TID,losartan 25 mg daily at home.Will recommend to restart his home meds and continue holding losartan in the setting of TRISTIAN. Tim Ogden MD * Karis Mejia WIRING MECHANIC - 04/13/2018 1:17 PM EDT O: Requested by CM to continue to communicate with Mother re discharge planning. Management Consultant spoke with Mother today who is glad to hear that patient is progressing. Mother has an appointment on 04/15/18 with the [facility] to discuss [place] L[facility]. She also had questions about filing for SSDI for patient. Management Consultant suggested that she contact with [facility] Roy officeand make an appointment to speak with someone there. Management Consultant also indicated that Mother should take along supportive friend as there can be a lot of information to digest and understand. A: Mother remains pleasant and actively engaged in treatment planning for patient. She is hopeful that he will be able to complete his rehab stay at [facility] but understands that he may need to go farther from home. P: Will continue to follow with team, liaison with Mother. Available to assist as needed/requested. 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 -No acute indication for WAITER/WAITRESS FIRST CLASS ,,Strict intake and out put monitoring,Daily weights,Renal [...] kidney disease. - No acute indication for WAITER/WAITRESS FIRST CLASS, Strict intake and out put monitoring, Daily weights, Renal dosing for medications - Hypertension: was on hydralazine 50 mg BID,diltiazem 120 mg XT daily ,metorpolol 50 mg TID,losartan 25 mg daily at home.Will recommend to restart his home meds and continue holding losartan in the setting of TRISTIAN. Tim Ogden MD * Ajay Alexandre - 04/12/2018 2:08 PM EDT Obstetrics Tech Encounter Note Patient Name: Christy Ambrose : [id number] MR#: [id number] Admit Date: 04/06/2018 12:58 PM Hospital Day 6 days Narrative: Seen on staff sonographer Rounds. Sitting in recliner. Cordial. Expression bemused, [...] chronic kidney disease. -No acute indication for WAITER/WAITRESS FIRST CLASS, Strict intake and out put monitoring, Daily weights, Renal dosing formedications - Hypertension: was on hydralazine 50 mg BID,diltiazem 120 mg XT daily ,metorpolol 50 mg TID,losartan 25 mg daily at home.Will recommend to restart his home meds and continue holding losartan in the setting of TRISTIAN. 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 -No acute indication for WAITER/WAITRESS FIRST CLASS ,,Strict intake and out put monitoring,Daily weights,Renal [...] accurately reflect mine. * Raulito De Los Satnos MD - 04/11/2018 2:24 PM EDT Neurology [...] 04/11/2018 Neurology resident, PGY-3 Vascular Neurology Pager [phone] Associated attestation - Tim Collins MD - [...] treatment session. Kelsey Hua, PT Pager # [phone] PT Evaluation Code Rationale: ?? Diagnosis & [...] ml/min N18.4 ??? 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 intermediate current [...] cook, clean independently. 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 pt usually [...] Assessment/Treatment Assistive Device (Bed Mobility) bed rails [id number] Carbon (Bed Mobility) minimum assist (75% patient effort) Comment (Bed Mobility) HOB elevated Transfer Assessment/Treatment Carbon (Sit-Stand Transfers) moderate assist (50% patient effort);verbal cues required;2 person assist required Carbon (Stand-Sit Transfers) moderate assist (50% patient effort);verbal cues required;2 person assist required Jav-Eydnv-Uxy Assistive Device (Transfers) rolling walker (initially transfered mod x2 w/o AD, poor balance) Safety Issues (Transfers) loses balance backward (lost balance forward initially) Impairments (Transfers) balance impaired;strength decreased;pain Comment (Transfers) cues for hand placement on RW Gait Assessment/Treatment Carbon (Gait) moderate assist (50% patient effort);verbal cues [...] good balance Sitting Balance: Dynamic fair balance Mql-mr-Yfvdo Balance poor balance Standing Balance: Static poor [...] to sit/sit to sidelying Bed Mobility Goal, Carbon Level independent Gait Training Goal Gait Training Goal, Date Established 04/11/18 Gait Training Goal, Time to Achieve 2 wks Gait Training Goal, Carbon Level independent Gait Training Goal, Assist Device other (see comments) (LRD ) Gait Training Goal, Distance to Achieve 150 ft Transfer Training Goal Transfer Training Goal, Date Established 04/11/18 Transfer Training Goal, Time to Achieve 2 wks Transfer Training Goal, Activity Type all transfers Transfer Train Goal, Carbon Level independent Transfer Training Goal, Assist Device [...] treatment session. Kelsey Hua PT Pager # [phone] * Karis Mejia MSW - 04/11/2018 1:15 PM EDT Discharge Planning: O: Requested by CM-RN to contact Mother re her concerns around housing. Management Consultant spoke with Mother who relayed that she [...] and plans to speak with her local [place] on A[facility]. Management Consultant suggested to Mother that she begin to have a conversation with them around [place] L[place] as that would be the payor source for patient. Mother is also interested in finding out what the discharge plan will be. Management Consultant relayed that a CM-RN would be in [...] longer needed); will follow up with Transplant Nephrology/[facility] today Tim Ogden MD * Odalis Castanon [...] MD/NEHA, PGY-5 Section of Vascular Surgery, Pager [phone] * Tim Ogden MD - 04/10/2018 10:57 [...] 04/09/2018 Neurology resident, PGY-4 Vascular Neurology Pager [phone] ... I saw and evaluated the patient [...] MD/NEHA, PGY-5 Section of Vascular Surgery, Pager [phone] * Alfonzo Miles MD - 04/08/2018 4:56 [...] initiated. Alfonzo Miles MD [place] [address] Pager: [phone], #[phone] Email: [email or web address] * Sharmin Barth RN - 04/08/2018 12:34 PM EDT [place] [facility] RESPONSE TEAM NOTE Name: Christy Ambrose Age: 57 y.o. Sex; Male Date of : 1960 Responding Members: BENJAMIN ROGEL RCP Date/Time of Admission: 04/06/2018 12:58 PM Unit/Room: 427 4W Service: Vascular sx Attending: Quin Peter Director Of Enrollment present? Yes Attending Contacted? Yes Time Activated: [...] f/u Wednesday as appropriate. Negrita Arnold OT #[phone] * Veronica Holt RN - 04/08/2018 12:09 [...] any questions. 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, suspected DVT on anticoagulation therapy with the Coumadin transferred from [facility] to [facility] on 04/06/18 for hemorrhagic shock status post [...] Latest Ref Range: Clear Hazy (A) Spec [place] UA Latest Ref Range: 1.002 - 1.030 [...] can not be managed medically needing emergent WAITER/WAITRESS FIRST CLASS.No indication for dialysis/CVVH -Had good U.out put [...] tolerated to keep BP stable .currently on mg BID and hydralazine,labetolol IV prn #5.Ruptured [...] vascular,neurology teams Radha Hughes MD Nephrology Fellow #[phone] * Veronica Holt RN - 04/08/2018 9:47 [...] HTN, epilepsy,and prior TBI who presents to [facility] s/p LUE bleeding with PEA arrest. Description [...] Pt intubated in field. Pt taken to [facility], where second tourniquet applied and pt received 6U PRBC. Transferred to [facility] for further care. ?? Of note, per [...] performed by Miguel Angel Moreno MD at [facility] MAIN OR ??? PRO DECOMPRESS FOREARM, BRACH ART EXPLOR Left 04/06/2018 FASCIOTOMY, FOREARM, WITH BRACHIAL ARTERY EXPLORATION (WRVU 8.41) performed by Lida Peter, [facility] MAIN OR ??? PRO DIRECT REPAIR RUPTURED ANEURYSM, AXILLO-BRACHIAL ARM INCIS Left 04/06/2018 @REPAIR, RUPTURED AXILLARY OR BRACHIAL ARTERY ANEURYSM BY ARM INCISION (WRVU *) performed by Lida Peter MD at [facility] OR ??? PRO EXC PAROTD, TOTAL, UNILAT RAD NECK Left 02/05/2016 @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, TOTAL, WITH UNILATERAL RADICAL NECK DISSECTION performed by Miguel Angel Moreno MD at [facility] OR ??? PRO EXC SKIN MALIG 3.1-4CM FACE, FACIAL Left 02/05/2016 EXC MALIGNANT LESION, 3.1 TO 4.0CM, FACE performed by Miguel Angel Moreno MD at [facility] MAIN OR ? ? PRO EXC SKIN MALIG >4CM TRUNK, ARM, LEG 04/19/2012 EXC MALIGNANT LESION, MICHAEL > 4.0CM, TRUNK performed by SABRINA MEDRANO at [facility] OR ??? PRO LAP, RADICAL NEPHRECTOMY Left 05/31/2017 @LAPAROSCOPY, RADICAL NEPHRECTOMY (WRVU 25.06) performed by Jax Mills MD at [facility] OR ??? PRO REBL VES GRAFT, UP EXTREM Left 04/06/2018 REPAIR BLOOD VESSEL WITH GRAFT OTHER THAN VEIN, UPPER EXTREMITY (WRVU 15.83) performed by Lida Peter MD at [facility] OR ??? PRO RELIEVE PRESSURE ON NERVE(S) Left 04/06/2018 (MSURG) CARPAL TUNNEL (WRVU 4.82) performed by Hay Sparks MD at [facility] OR ??? PRO REPAIR INTERMEDIATE S/A/T/E 2.6-7.5 CM 04/19/2012 REPAIR INTERMEDIATE WOUND, (NO HANDS OR FEET) 2.6 TO 7.5CM, UPPER EXTREMITY performed by SABRINA MEDRANO at [facility] OR ??? PRO REVISE MEDIAN N/CARPAL TUNNEL SURG Left 04/06/2018 MEDIAN NERVE DECOMPRESSION (CARPAL TUNNEL RELEASE) (WRVU 4.97) performed by Lida Peter MD [facility] MAIN OR ? ? PRO SPLIT GRFT, HEAD, FAC, HAND, FEET <100SQCM N/A 02/20/2016 SPLIT THICKNESS SKIN SPLIT GRAFT,100SQ CM OR LESS, NECK performed by Miguel Angel Moreno MD at [facility] MAIN OR ??? PRO UPPER GI ENDOSCOPY, BIOPSY N/A 05/13/2017 EGD WITH BIOPSY (WRVU 2.49) performed by Aditya Barrera MD at [facility] ENDOSCOPY ??? PRO VASCULAR SURGERY PROCEDURE UNLIST Left 11/20/2015 LIGATION\REPAIR AV FISTULA performed by Camilo Ireland MD at [facility] MAIN OR ??? PRO VASCULAR SURGERY PROCEDURE UNLIST Left 11/20/2015 EXCISION VEIN FROM HAND performed by Camilo Ireland MD at [facility] MAIN OR ??? 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 [...] epilepsy, and prior TBI who presents to [facility] s/p hemorrhagic shock and PEA arrest from [...] care per primary Vascular team. Please page #[phone] for any further questions or concerns. Procedures: [...] -none Sabrina Armas MD 04/07/2018 Trauma pager [phone] * Apple Gutierrez MD - 04/07/2018 6:59 [...] and tender to touch. Pt transferred to [facility] with all belongings. Report given to oncoming RN. * Natalya Minaya MD - 04/08/2018 12:59 PM EDT Critical Care - Admission Note History of Present Illness: Christy Ambrose is a 57 y/o M w/ PMH developmental delay, epilepsy, IGA nephropathy (s/p renal transplant 2002, on tac & mycophenalate) left kasaan nephrectomy (2016), HTN who was found down on 04/06 at his home w/ bleeding from L AVF. He had PEA arrest, ROSC w/ chest compressions, 1 dose epi. Tourniquet applied to L arm in field, pt intubated and brought to [facility]. Received 6 units PRBC & transferred to [facility]. On arrival GCS 11, taken to OR [...] ml/min N18.4 ??? 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 intermediate current [...] Miguel Angel Moreno MD at [facility] OR ??? PRO DECOMPRESS FOREARM, BRACH ART EXPLOR Left 04/06/2018 FASCIOTOMY, FOREARM, WITH BRACHIAL ARTERY EXPLORATION (WRVU 8.41) performed by Lida Peter MDat [facility] OR ??? PRO DIRECT REPAIR RUPTURED ANEURYSM, AXILLO-BRACHIAL ARM INCIS Left 04/06/2018 @REPAIR, RUPTURED AXILLARY OR BRACHIAL ARTERY ANEURYSM BY ARM INCISION (WRVU *) performed by Lida Peter MD at [facility] OR ??? PRO EXC PAROTD, TOTAL, UNILAT RAD NECK Left 02/05/2016 @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, TOTAL, WITH UNILATERAL RADICAL NECK DISSECTION performed by Miguel Angel Moreno MD at [facility] OR ??? PRO EXC SKIN MALIG 3.1-4CM FACE, FACIAL Left 02/05/2016 EXC MALIGNANT LESION, 3.1 TO 4.0CM, FACE performed by Miguel Angel Moreno MD at [facility] OR ? ? PRO EXC SKIN MALIG >4CM TRUNK, ARM, LEG 04/19/2012 EXC MALIGNANT LESION, MICHAEL > 4.0CM, TRUNK performed by SABRINA MEDRANO at [facility] OR ??? PRO LAP, RADICAL NEPHRECTOMY Left 05/31/2017 @LAPAROSCOPY, RADICAL NEPHRECTOMY (WRVU 25.06) performed by Jax Mills MD at [facility] OR ??? PRO REBL VES GRAFT, UP EXTREM Left 04/06/2018 REPAIR BLOOD VESSEL WITH GRAFT OTHER THAN VEIN, UPPER EXTREMITY (WRVU 15.83) performed by Lida Peter MD at [facility] MAIN OR ??? PRO RELIEVE PRESSURE ON NERVE(S) Left 04/06/2018 (MSURG) CARPAL TUNNEL (WRVU 4.82) performed by Hay Sparks MD at [facility] MAIN OR ??? PRO REPAIR INTERMEDIATE S/A/T/E 2.6-7.5 CM 04/19/2012 REPAIR INTERMEDIATE WOUND, (NO HANDS OR FEET) 2.6 TO 7.5CM, UPPER EXTREMITY performed by SABRINA MEDRANO at [facility] MAIN OR ??? PRO REVISE MEDIAN N/CARPAL TUNNEL SURG Left 04/06/2018 MEDIAN NERVE DECOMPRESSION (CARPAL TUNNEL RELEASE) (WRVU 4.97) performed by Lida Peter MD [facility] MAIN OR ? ? PRO SPLIT GRFT, HEAD, FAC, HAND, FEET <100SQCM N/A 02/20/2016 SPLIT THICKNESS SKIN SPLIT GRAFT,100SQ CM OR LESS, NECK performed by Miguel Angel Moreno MD at [facility] MAIN OR ??? PRO UPPER GI ENDOSCOPY, BIOPSY N/A 05/13/2017 EGD WITH BIOPSY (WRVU 2.49) performed by Aditya Barrera MD at [facility] ENDOSCOPY ??? PRO VASCULAR SURGERY PROCEDURE UNLIST Left 11/20/2015 LIGATION\REPAIR AV FISTULA performed by Camilo Ireland MD at [facility] MAIN OR ??? PRO VASCULAR SURGERY PROCEDURE UNLIST Left 11/20/2015 EXCISION VEIN FROM HAND performed by Camilo Ireland MD at [facility] MAIN OR ??? 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 [...] 7.27* PO2ART 65* 152* 168* 228* 379* WEQ4QVC 31* 34* 39 40 36 BEART -11.8* [...] Body Fluid Culture, Aerobic & Anaerobic Fluid [[id number]] Collected: 04/06/18 1415 ? Lab Status: Preliminary result Specimen: Fluid Updated: 04/07/18 1332 ? Body Fluid Culture, Aerobic [[id number]] Collected: 04/06/18 1415 ? Lab Status: Preliminary result Specimen: Fluid Updated: 04/07/18 0804 ? Body Fluid Culture Few normal cutaneous shaina ? Gram Stain -- ? Few Neutrophils seen No microorganisms seen. ? Anaerobic Culture [[id number]] Collected: 04/06/18 1415 ? Lab Status: Preliminary [...] can not be managed medically needing emergent WAITER/WAITRESS FIRST CLASS.No indication for dialysis/CVVH -Had good U.out put [...] tolerated to keep BP stable .currently on cqzpkznkyh12 mg BID and hydralazine,labetolol IV prn ?? [...] Disposition: Critical Care Red 1 Team (pager [phone]) Natalya Minaya MD 04/08/2018 * Erwin Marino MD - 04/06/2018 5:03 PM EDT Critical Care - Admission Note History of Present Illness: Christy Ambrose is a 57 y.o. male with PMH of HTN, TBI w/ epilepsy, gout, IgA nephropathy s/p donor renal transplant 2002 (on tacrolimus and cellcept) complicated by delayed graft function andrecurrent IgA nephropathy and Prograf toxicity, laparoscopic L kasaan radical nephrectomy May 2017 for papillary carcinoma, HTN, previous revision of L AVF due to massive size. Recently put on coumadin for infection of left forearm with swelling, suspected to be DVT. Presents to [facility] with hemorrhagic shock s/p PEA arrest secondary to torrential left upper extremity fistula bleeding. Per EMS the patient had a severe amount of blood loss in the bathroom and bedroom that resulted in PEA cardiac arrest at the scene. He received epinephrine, 2.5 L of normal saline with ROSC obtained. Arrived at [facility] and sedated and then received 6 [...] performed by Miguel Angel Moreno MD at [facility] MAIN OR ??? PRO EXC PAROTD, TOTAL, UNILAT RAD NECK Left 02/05/2016 @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, TOTAL, WITH UNILATERAL RADICAL NECK DISSECTION performed by Miguel Angel Moreno MD at [facility] OR ??? PRO EXC SKIN MALIG 3.1-4CM FACE, FACIAL Left 02/05/2016 EXC MALIGNANT LESION, 3.1 TO 4.0CM, FACE performed by Miguel Angel Moreno MD at [facility] OR ? ? PRO EXC SKIN MALIG >4CM TRUNK, ARM, LEG 04/19/2012 EXC MALIGNANT LESION, MICHAEL > 4.0CM, TRUNK performed by SABRINA MEDRANO at [facility] OR ??? PRO LAP, RADICAL NEPHRECTOMY Left 05/31/2017 @LAPAROSCOPY, RADICAL NEPHRECTOMY (WRVU 25.06) performed by Jax Mills MD at [facility] MAIN OR ??? PRO REPAIR INTERMEDIATE S/A/T/E 2.6-7.5 CM 04/19/2012 REPAIR INTERMEDIATE WOUND, (NO HANDS OR FEET) 2.6 TO 7.5CM, UPPER EXTREMITY performed by SABRINA MEDRANO at [facility] MAIN OR ? ? PRO SPLIT GRFT, HEAD, FAC, HAND, FEET <100SQCM N/A 02/20/2016 SPLIT THICKNESS SKIN SPLIT GRAFT,100SQ CM OR LESS, NECK performed by Miguel Angel Moreno MD at [facility] MAIN OR ??? PRO UPPER GI ENDOSCOPY, BIOPSY N/A 05/13/2017 EGD WITH BIOPSY (WRVU 2.49) performed by Aditya Barrera MD at [facility] ENDOSCOPY ??? PRO VASCULAR SURGERY PROCEDURE UNLIST Left 11/20/2015 LIGATION\REPAIR AV FISTULA performed by Camilo Ireland MD at [facility] MAIN OR ??? PRO VASCULAR SURGERY PROCEDURE UNLIST Left 11/20/2015 EXCISION VEIN FROM HAND performed by Camilo Ireland MD at [facility] MAIN OR ??? 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 [...] mcL Appearance UA Hazy (A) Clear Spec [place] UA 1.023 1.002 - 1.030 Color UA [...] No microorganisms seen. Radiology: XR Chest and [id number] 04/06 Prominence of the superior mediastinum may [...] Ambrose Level of Activation: Trauma 9 MR#: [id number] [ ]Scene Call or [X]Hospital Transfer : [id number] CC/MECHANISM OF INJURY: 57 y.o. Male s/p [...] HTN, epilepsy,and prior TBI who presents to [facility] s/p LUE bleeding with PEA arrest. Description [...] Pt intubated in field. Pt taken to [facility], where second tourniquet applied and pt received 6U PRBC. Transferred to [facility] for further care. Of note, per Dr. [...] Miguel Angel Moreno MD at [facility] OR ??? PRO EXC PAROTD, TOTAL, UNILAT RAD NECK Left 02/05/2016 @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, TOTAL, WITH UNILATERAL RADICAL NECK DISSECTION performed by Miguel Angel Moreno MD at [facility] OR ??? PRO EXC SKIN MALIG 3.1-4CM FACE, FACIAL Left 02/05/2016 EXC MALIGNANT LESION, 3.1 TO 4.0CM, FACE performed by Miguel Angel Moreno MD at [facility] OR ? ? PRO EXC SKIN MALIG >4CM TRUNK, ARM, LEG 04/19/2012 EXC MALIGNANT LESION, MICHAEL > 4.0CM, TRUNK performed by SABRINA MEDRANO at [facility] OR ??? PRO LAP, RADICAL NEPHRECTOMY Left 05/31/2017 @LAPAROSCOPY, RADICAL NEPHRECTOMY (WRVU 25.06) performed by Jax Mills MD at [facility] MAIN OR ??? PRO REPAIR INTERMEDIATE S/A/T/E 2.6-7.5 CM 04/19/2012 REPAIR INTERMEDIATE WOUND, (NO HANDS OR FEET) 2.6 TO 7.5CM, UPPER EXTREMITY performed by SABRINA MEDRANO at [facility] MAIN OR ? ? PRO SPLIT GRFT, HEAD, FAC, HAND, FEET <100SQCM N/A 02/20/2016 SPLIT THICKNESS SKIN SPLIT GRAFT,100SQ CM OR LESS, NECK performed by Miguel Angel Moreno MD at [facility] MAIN OR ??? PRO UPPER GI ENDOSCOPY, BIOPSY N/A 05/13/2017 EGD WITH BIOPSY (WRVU 2.49) performed by Aditya Barrera MD at [facility] ENDOSCOPY ??? PRO VASCULAR SURGERY PROCEDURE UNLIST Left 11/20/2015 LIGATION\REPAIR AV FISTULA performed by Camilo Ireland MD at [facility] MAIN OR ??? PRO VASCULAR SURGERY PROCEDURE UNLIST Left 11/20/2015 EXCISION VEIN FROM HAND performed by Camilo Ireland MD at [facility] MAIN OR ??? 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 [...] Normal RBC Morphology Abnormal Ovalocytes 1-5 /HPF Yovanny Cells 1-5 /HPF Rapid Drug Screen, Urine [...] mcL Appearance UA Hazy (A) Clear Spec [place] UA 1.023 1.002 - 1.030 Color UA [...] epilepsy, and prior TBI who presents to [facility] s/p LUE bleeding with PEA arrest now [...] to the planned procedure. Hand Hygiene: The wedding planning internship did perform hand hygiene prior to line insertion. Catheter type: PICC Lot number: [id number] Procedure Technique: Skin was prepped with chlorhexidine. [...] vac dressing completed. Left forearm wound measures [id number] with clean, well granulated base. PANCHTIO Eng with plastic surgery was present for dressing change to assess for closure plan, ie flap procedure. Pt tolerated the dressing change well with PO medications. Black sponge (x3) placed to wound bed, covered with plastic and suction was applied @125mmhg continuous. Dry gauze and tape placed over leftwrist incision. * Jose Alejandro Reyna MD - 04/09/2018 9:03 AM EDT [facility] Department of Neurology Critical Care Prolonged [...] in the Intensive Care Unit by the [facility] Clinical Neurophysiology Laboratory. The 10/20 [...] PM EDTAssociated Order(s): EEG AWAKE, ASLEEP, DROWSY [facility] Department of Neurology In Patient Routine [...] tablet 50 mg 50 mg Oral Q8H [facility] Angelika Aguilera, PA 50 mg at 04/08/18 [...] channel digitized electroencephalogram was performed in the [facility] Clinical Neurophysiology Laboratory. The 10/20 international system of electrode placement was used and bipolar and referential electrode montages were recorded. In addition to EEG the patient was monitored for EKGand lateral/vertical eye movements. Video was recorded during the session. The duration of the recording was 30 minutes. AUDITOR/QUALITY'S REPORT: Performed by: AT Patient was not [...] Outcome: Ongoing (Interventions Implemented as Appropriate) 04/25/18 4076 Skin Integrity Impairment, Risk/Actual (Adult) Skin Integrity/Wound [...] briefly with patient to update him that [facility] in [place], [place] is reviewing him for possible admission this week. Pt was appreciative for this news. Pt [facility] filed for L[facility]. Pt's staff nurse Lalitha mensah. I was going to call pt's brother Lucas to discuss. WIRING MECHANIC Sandeep Wan had just talked with pt's brother and mother Ilda and informed me that a tentative family meeting has been set up for tomorrow at 3:00 pm. CM will be part of the meeting; will continue to follow. Padmini Ruiz RN [phone] * Plan of Care - Naz Robbins [...] none Problem: Health Knowledge, Opportunity to Enhance (Adult,NICU,Providence,Obstetrics,Pediatric) Goal: Knowledgeable about Health Subject/Topic Patient will demonstrate the desired outcomes by discharge/transition of care. Outcome: Ongoing (Interventions Implemented as Appropriate) 04/30/18 1903 Health Knowledge, Opportunity to Enhance (Adult,NICU,Providence,Obstetrics,Pediatric) Knowledgeable about Health Subject/Topic making progress toward [...] PRN PICC dressing change completed as per [facility] protocol. yes Positive pressure displacement connector (Max [...] none Problem: Health Knowledge, Opportunity to Enhance (Adult,NICU,Providence,Obstetrics,Pediatric) Goal: Knowledgeable about Health Subject/Topic Patient will demonstrate the desired outcomes by discharge/transition of care. Outcome: Ongoing (Interventions Implemented as Appropriate) 04/30/18 1903 Health Knowledge, Opportunity to Enhance (Adult,NICU,Providence,Obstetrics,Pediatric) Knowledgeable about Health Subject/Topic making progress toward [...] 04/27/2018 3:19 PM EDT OFFICE OF CARE MANAGEMENT/Ignition Expert/PROGRESS NOTE e-DH reviewed. Report received from vascular. [...] broughthim in. 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 with [...] Assessment/Treatment Assistive Device (Bed Mobility) bed rails Quy-vh-Zlwdjy Carbon (Bed Mobility) conditional independence Impairments (Bed Mobility) flexibility decreased;ROM (range of motion) decreased;strength decreased Comment (Bed Mobility) HOB slightyly elevated; vc's to adjust HOB Transfer Assessment/Treatment Chair-Bed Carbon (Transfers) contact guard assist Carbon (Sit-Stand Transfers) contact guard assist Carbon (Stand-Sit Transfers) contact guard assist Carbon (Toilet Transfers) (pt continues to report ambulating to bathrom for toileting) Impairments (Transfers) balance impaired;ROM (range of motion) decreased;strength decreased Gait Assessment/Treatment Carbon (Gait) contact guard assist Assistive Device (Gait) gait belt Distance in Feet (Gait) 750' Safety Issues (Gait) balance decreased during turns;step length decreased Impairments (Gait) balance impaired;coordination impaired Comment (Gait) mild ataxia; no lob noted; assist to carry wound vac Lower Body Dressing Assessment/Training Position (LB Dressing) standing Carbon Level (LB Dressing) contact guard assist Impairments [...] good balance Sitting Balance: Dynamic fair balance Nzg-kt-Phitc Balance fair balance Standing Balance: Static fair [...] in. ?? I have met with the patient/senior outside sales representative to discuss discharge planning needs. I have provided the [facility], Office of Care Management letter from the Physical Therapy Attendant pertaining to rehab referrals. I have also provided a letter describing our affiliations within the [facility] and educated them about their right to choose where referrals are placed. ?? I reviewed the different levels of rehab including SNF, swing, acute and LTAC with the patient/senior outside sales representative. ?? The patient/senior outside sales representative has been provided a list of facilities within their preferred geographic area. ?? I have requested that the patient/senior outside sales representative provide at least three choices for referral. ?? The patient/senior outside sales representative have requested referrals to: ?? 1. [facility] ?? 2. [facility] ?? 3. [facility]. View ?? Expected date of discharge: 3-5 days Note routed to Medical Detailist who will communicate referrals to facilities and provide any required information. * Plan of Care - Helen Denny RN - 04/27/2018 10:22 AM EDT Problem: Health Knowledge, Opportunity to Enhance (Adult,NICU,Providence,Obstetrics,Pediatric) Goal: Knowledgeable about Health Subject/Topic Patient will demonstrate the desired outcomes by discharge/transition of care. Peripherally Inserted Central Catheter (PICC) Teaching Sheet Peripherally inserted central catheters (dpbh-dn-ixyx) (PICC) are used when you need IV [...] midline catheter? PICC lines are used for care home treatments. PICC lines may be used for [...] can be set up via the nurse Ignition Expert to help you. What are possible complications [...] Vascular Access Device Selection, Insertion, and Management, [employer] Access Systems 04/15. A Review of the Efficacy, Safety, Use, and Administration of [employer], [employer] 2005 * Plan of Care - [...] agency transportation Goal: Interdisciplinary Rounds/Family Conf 04/25/18 2576 Interdisciplinary Rounds/Family Conf Participants nursing;patient Problem: Seizure [...] Sparks MD - 04/26/2018 12:40 PM EDT [facility] Operative Note Patient Name: Christy Ambrose : [id number] MR#: [id number] Case Date: 04/26/2018 Surgeon: Surgeon(s) and Role: [...] Aditi Mccollum MD Plastic Surgery Resident, pager [phone] Plastic surgery team pager: [phone] Attestation: Case Date: 04/26/2018 I was present and I participated during the entire procedure (does not need to include opening and closing). HAY SPARKS MD 04/27/2018 * Brief Op Note - Aditi Mccollum MD - 04/26/2018 12:36 PM EDT Brief Operative Note Patient Name: Christy Ambrose : [id number] MR#: [id number] Case Date: 04/26/2018 Surgeon: Surgeon(s) and Role: [...] Outcome: Ongoing (Interventions Implemented as Appropriate) 04/25/18 2436 Skin Integrity Impairment, Risk/Actual (Adult) Skin Integrity/Wound [...] or Care? [facility] What Questions Do You Have About Your [...] ??? 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 [...] performed by Miguel Angel Moreno MD at [facility] MAIN OR ??? PRO DECOMPRESS FOREARM, BRACH ART EXPLOR Left 04/06/2018 FASCIOTOMY, FOREARM, WITH BRACHIAL ARTERY EXPLORATION (WRVU 8.41) performed by Lida Peter MDat [facility] MAIN OR ??? PRO DIRECT REPAIR RUPTURED ANEURYSM, AXILLO-BRACHIAL ARM INCIS Left 04/06/2018 @REPAIR, RUPTURED AXILLARY OR BRACHIAL ARTERY ANEURYSM BY ARM INCISION (WRVU *) performed by Lida Peter MD at [facility] MAIN OR ??? PRO EXC PAROTD, TOTAL, UNILAT RAD NECK Left 02/05/2016 @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, TOTAL, WITH UNILATERAL RADICAL NECK DISSECTION performed by Miguel Angel Moreno MD at [facility] OR ??? PRO EXC SKIN MALIG 3.1-4CM FACE, FACIAL Left 02/05/2016 EXC MALIGNANT LESION, 3.1 TO 4.0CM, FACE performed by Miguel Angel Moreno MD at [facility] OR ? ? PRO EXC SKIN MALIG >4CM TRUNK, ARM, LEG 04/19/2012 EXC MALIGNANT LESION, MICHAEL > 4.0CM, TRUNK performed by SABRINA MEDRANO at [facility] OR ??? PRO LAP, RADICAL NEPHRECTOMY Left 05/31/2017 @LAPAROSCOPY, RADICAL NEPHRECTOMY (WRVU 25.06) performed by Jax Mills MD at [facility] OR ??? PRO LIGATN ANGIOACCESS AV FISTULA Left 04/19/2018 LIGATION OR BANDING OF HEMODIALYSIS FISTULA OR GRAFT UPPER EXTREMITY (WRVU 6.25) performed by Odalis Elias MD at [facility] MAIN OR ??? PRO NEGATIVE PRESSURE WOUND THERAPY, LESS THAN OR EQUAL TO 50 SQCM Left 04/19/2018 DRESSING CHANGE (VAC ASSISTED) UP TO 50SQ.CM (WRVU 0.55) performed by Odalis Elias MD Pending sale to [facility] OR ??? PRO REBL VES GRAFT, UP EXTREM Left 04/06/2018 REPAIR BLOOD VESSEL WITH GRAFT OTHER THAN VEIN, UPPER EXTREMITY (WRVU 15.83) performed by Lida Peter MD at [facility] OR ??? PRO RELIEVE PRESSURE ON NERVE(S) Left 04/06/2018 (MSURG) CARPAL TUNNEL (WRVU 4.82) performed by Hay Sparks MD at [facility] OR ??? PRO REPAIR INTERMEDIATE S/A/T/E 2.6-7.5 CM 04/19/2012 REPAIR INTERMEDIATE WOUND, (NO HANDS OR FEET) 2.6 TO 7.5CM, UPPER EXTREMITY performed by SABRINA MEDRANO at [facility] OR ? ? PRO REPAIR INTERMEDIATE S/A/T/E > 30.0 CM Left 04/14/2018 REPAIR INTERMEDIATE WOUND, (NO HANDS OR FEET) >30.0CM, UPPER EXTREMITY (WRVU 5) performed by Yimi Easton MD at [facility] MAIN OR ??? PRO REVISE MEDIAN N/CARPAL TUNNEL SURG Left 04/06/2018 MEDIAN NERVE DECOMPRESSION (CARPAL TUNNEL RELEASE) (WRVU 4.97) performed by Lida Peter MD [facility] MAIN OR ? ? PRO SPLIT GRFT, HEAD, FAC, HAND, FEET <100SQCM N/A 02/20/2016 SPLIT THICKNESS SKIN SPLIT GRAFT,100SQ CM OR LESS, NECK performed by Miguel Angel Moreno MD at [facility] MA[facility] OR ??? PRO UPPER GI ENDOSCOPY, BIOPSY N/A 05/13/2017 EGD WITH BIOPSY (WRVU 2.49) performed by Aditya Barrera MD at [facility] ENDOSCOPY ??? PRO VASCULAR SURGERY PROCEDURE UNLIST Left 11/20/2015 LIGATION\REPAIR AV FISTULA performed by Camilo Ireland MD at [facility] MAIN OR ??? PRO VASCULAR SURGERY PROCEDURE UNLIST Left 11/20/2015 EXCISION VEIN FROM HAND performed by Camilo Ireland MD at [facility] MAIN OR ??? 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 [...] as pending/add-on, please make patient NPO at [place] on Wednesday. Attending: Plan discussed and agree [...] management. Pt demonstrating increased ambulation w/ staff accountant and participating in functional ADL tasks. Pt will benefit from ongoing therapeutic interventions to achieve pt's and therapy goals. Please refer to associated flowsheet data listed below for treatment session details. Staff Recommendations: Encourage OOB activity and participation in all self care tasks Anticipated Discharge Disposition: (P) inpatient rehabilitation facility Pager: [phone] IRLANDA MUNOZ 04/22/2018 Occupational Therapy Rehabilitation Department [...] Level 0 Pain Goal 0 Transfer Assessment/Treatment Carbon (Sit-Stand Transfers) supervision required Carbon (Toilet Transfers) supervision required Assistive Device (Toilet Transfers) bracing Impairments (Transfers) strength decreased;balance impaired Comment (Transfers) assist for wound vac during toilet transfer; slightly impulsive Gait Assessment/Treatment Carbon (Gait) supervision required Distance in Feet (Gait) 25 Impairments (Gait) balance impaired Comment (Gait) recliner <> bathroom ; witnessed pt ambulating unit w/ staff accountant ~300 Bathing Assessment/Training Comment (Bathing) pt had just completed bathing task prior to this writers arrival; pt reported assisting w/ shower cap and bathing ; Lower Body Dressing Assessment/Training Position (LB Dressing) sitting Carbon Level (LB Dressing) verbal cues required;nonverbal cues [...] or Care? I am having surgery in [facility]. What Questions Do You Have About [...] Home with assist [facility] PTA Pager: [phone] Inpatient Physical Therapy Timed Up & Go [...] Assessment/Treatment Assistive Device (Bed Mobility) bed rails Mllyzw-tg-Lnf Carbon (Bed Mobility) conditional independence Comment (Bed Mobility) HOB flat, extra time required Gyx-sw-Wiczbb Carbon (Bed Mobility) conditional independence Transfer Assessment/Treatment Carbon (Sit-Stand Transfers) supervision required Carbon (Stand-Sit Transfers) supervision required Ver-Qcuvs-Kzn Assistive Device (Transfers) (no device) Maintain Weight Bearing Status (Transfers) cues to maintain weight bearing status Safety Issues (Transfers) balance decreased during turns Impairments (Transfers) balance impaired;strength decreased Comment (Transfers) Initial cues to not use L UE, impulsive, pt held wound vac with R UE Gait Assessment/Treatment Carbon (Gait) supervision required Assistive Device (Gait) (no [...] to sit/sit to sidelying Bed Mobility Goal, Carbon Level independent Bed Mobility Goal, Outcome Achieved goal ongoing Gait Training Goal Gait Training Goal, Date Established 04/11/18 Gait Training Goal, Time to Achieve 2 wks Gait Training Goal, Carbon Level independent Gait Training Goal, Assist Device other (see comments) (LRD ) Gait Training Goal, Distance to Achieve 150 ft Gait Training Goal, Outcome goal ongoing Transfer Training Goal Transfer Training Goal, Date Established 04/11/18 Transfer Training Goal, Time to Achieve 2 wks Transfer Training Goal, Activity Type all transfers Transfer Train Goal, Carbon Level independent Transfer Training Goal, Assist Device [...] Discharge Disposition: (P) inpatient rehabilitation facility Pager: [phone] IRLANDA MUNOZ 04/20/2018 Occupational Therapy Rehabilitation Department [...] Level 0 Pain Goal 0 Transfer Assessment/Treatment Carbon (Sit-Stand Transfers) contact guard assist Carbon (Stand-Sit Transfers) contact guard assist Bqd-Nfqca-Pyo Assistive Device (Transfers) gait belt Safety Issues (Transfers) balance decreased during turns Impairments (Transfers) balance impaired;strength decreased Comment (Transfers) slightly impulsive at times; cues for safety awareness Gait Assessment/Treatment Carbon (Gait) verbal cues required;nonverbal cues required (demo/gesture);contact guard assist Assistive Device (Gait) gait belt Distance in Feet (Gait) 300' Safety Issues (Gait) balance decreased during turns;step length decreased Impairments (Gait) balance impaired;strength decreased Comment (Gait) pt required mulit modal cues for directions; slightly impulsive; Lower Body Dressing Assessment/Training Position (LB Dressing) sitting;standing Carbon Level (LB Dressing) set up required;verbal cues [...] good balance Sitting Balance: Dynamic fair balance Dxr-yu-Byybs Balance fair balance Standing Balance: Static fair [...] DVT on coumadin who was transferred to [facility] for hemorrhagic shock with PEA arrest secondary to fistulableeding. He is a limited historian- history taken from chart- He had had some leaking from his LUEAVF site and was found by his mom in a pool of blood, pulseless. He was transfused 6 units of prbcsand transferred to [facility]. He had previous LAVF revision due to [...] father Social History and Habits: Lives in [place] with his mom. Non-smoker (quit 2000). No [...] Danielle Peoples DO Infectious Disease Fellow Pager [phone] Associated attestation - Katarzyna Guevara MD - [...] Junior MD - 04/19/2018 10:43 AM EDT [facility] Operative Note Patient Name: Christy Ambrose : [id number] MR#: [id number] Case Date: 04/19/2018 Surgeon: Surgeon(s) and Role: [...] Junior MD - 04/19/2018 10:25 AM EDT [facility] Operative Note Patient Name: Christy Ambrose : [id number] MR#: [id number] Case Date: 04/19/2018 Surgeon: Surgeon(s) and Role: [...] 04/18/2018 2:40 PM EDT OFFICE OF CARE MANAGEMENT/Ignition Expert/PROGRESS NOTE e-DH reviewed. Report received from vascular [...] wound base. --[facility] to [facility] AVF --NPO at midnight [...] 04/15/2018 12:36 PM EDT OFFICE OF CARE MANAGEMENT/Ignition Expert/PROGRESS NOTE e-DH reviewed. Report received from vascular [...] Discharge Disposition: (P) inpatient rehabilitation facility Pager: [phone] IRLANDA MUNOZ 04/15/2018 Occupational Therapy Rehabilitation Department [...] 0 Pain Goal 0 Transfer Assessment/Treatment Bed-Chair Carbon (Transfers) contact guard assist Flz-Gqzxm-Wrs Assistive Device (Transfers) (IV pole for support ) Carbon (Sit-Stand Transfers) set up required;verbal cues required;contact guard assist Carbon (Stand-Sit Transfers) verbal cues required;contact guard assist Hkc-Qxhhl-Mzz Assistive Device (Transfers) (IV pole ) Safety Issues (Transfers) sequencing ability decreased;step length decreased;weight-shifting ability decreased Impairments (Transfers) balance impaired;strength decreased Comment (Transfers) cues for safe hand placement and task initation Gait Assessment/Treatment Carbon (Gait) verbal cues required;contact guard assist Assistive [...] Body Dressing Assessment/Training Position (UB Dressing) sitting Carbon Level (UB Dressing) contact guard assist Comment (UB Dressing) paco armstrong Grooming Assessment/Training Position (Grooming) sitting Carbon Level (Grooming) set up required;verbal cues required;contact [...] Please contact Violetta Deng RN on pager [phone] or the wound care team at [phone] or pager [phone] with skin and wound care concerns or questions. * Plan of Care - Migule Angel Pierce, YOUSIF - 04/15/2018 10:16 AM [...] for specific details, POC and goals. Recommendations PREVENTIVE MEDICINE OFFICER Diet Recommendation: regular solid, thin liquids Therapy Frequency: other (see comments) (D/C from speech intervention.) MIGUEL ANGEL PIERCE, YOUSIF Inpatient Speech Pathologist Pager: [phone] 04/15/18 1011 Rehab Evaluation Document Type therapy [...] Dysphagia Goal, Outcome goal met Clinical Impression PREVENTIVE MEDICINE OFFICER Swallowing Diagnosis other (see comments) (Functionally appearing oropharyngeal swallow) Rehab Potential/Prognosis, Swallowing good, to achieve stated therapy goals Therapy Frequency other (see comments) (D/C from speech intervention.) PREVENTIVE MEDICINE OFFICER Diet Recommendation regular solid;thin liquids * Plan [...] inpatient rehabilitation facility [facility] PTA Pager: [phone] Inpatient Physical Therapy 04/15/18 0937 Rehab Evaluation Document Type therapy note (daily [...] cook, clean independently. 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 pt usually ambulates w/o AD, but occasionally will walk w/ cane Pain Scale/Rating Pain Assessment Scale Word (verbal rating pain scale) Pain Level 0 Bed Mobility Assessment/Treatment Assistive Device (Bed Mobility) bed rails Zvqntg-rj-Xhc Carbon (Bed Mobility) supervision required Comment (Bed Mobility) HOB elevated, extra time required Safety Issues (Bed Mobility) decreased use of arms for pushing/pulling Impairments (Bed Mobility) strength decreased Transfer Assessment/Treatment Carbon (Sit-Stand Transfers) contact guard assist Carbon (Stand-Sit Transfers) contact guard assist Jiq-Psqex-Sur Assistive Device (Transfers) (IV pole) Safety Issues (Transfers) balance decreased during turns;step length decreased;loses balance backward Impairments (Transfers) balance impaired;strength decreased Comment (Transfers) Initially falling back onto bed with standing or marching in place, able to steady himself with the IV pole Gait Assessment/Treatment Carbon (Gait) contact guard assist Assistive Device (Gait) [...] to sit/sit to sidelying Bed Mobility Goal, Carbon Level independent Bed Mobility Goal, Outcome Achieved goal ongoing Gait Training Goal Gait Training Goal, Date Established 04/11/18 Gait Training Goal, Time to Achieve 2 wks Gait Training Goal, Carbon Level independent Gait Training Goal, Assist Device other (see comments) (LRD ) Gait Training Goal, Distance to Achieve 150 ft Gait Training Goal, Outcome goal ongoing Transfer Training Goal Transfer Training Goal, Date Established 04/11/18 Transfer Training Goal, Time to Achieve 2 wks Transfer Training Goal, Activity Type all transfers Transfer Train Goal, Carbon Level independent Transfer Training Goal, Assist Device [...] Easton MD - 04/14/2018 8:19 AM EDT [facility] Operative Note Patient Name: Christy Ambrose : [id number] MR#: [id number] Case Date: 04/14/2018 Surgeon: Surgeon(s) and Role: [...] he was found down. [facility] 2 [facility]niquets on since [...] discharge. ?? I have met with the patient/senior outside sales representative to discuss discharge planning needs. I have provided the [facility], Office of Care Management letter from the Physical Therapy Attendant pertaining to rehab referrals. I have also provided a letter describing our affiliations within the [facility] and educated them about their right to choose where referrals are placed. ?? I reviewed the different levels of rehab including SNF, swing, acute and LTAC with the patient/senior outside sales representative. ?? The patient/senior outside sales representative has been provided a list of facilities within their preferred geographic area. ?? I have requested that the patient/senior outside sales representative provide at least three choices for referral. ?? The patient/senior outside sales representative have requested referrals to: ?? 1. [facility]. ?? 2. [facility] ?? 3. ?? Expected date of discharge: next 24- 48 hours Note routed to Medical Detailist who will communicate referrals to facilities and [...] epilepsy, and prior TBI who presents to [facility] s/p LUE bleeding with PEA arrest. Description [...] Pt intubated in field. Pt taken to [facility], where second tourniquet applied and pt received 6U PRBC. Transferred to [facility]. Per [facility] and P Dr. Burkett. Past Medical History: Diagnosis Date ??? BP (high blood pressure) ??? DVT (deep venous thrombosis) ??? Gout ??? Hypertension ??? Kidney problem ??? Pneumonia ??? TBI (traumatic brain injury) 1980 Hospitalizations Within the Past 30 Days: [facility] Anticipated Length Of Stay (If known): Expected Length of Hospitalization: 5-7 days Current Decision-Making Capacity: Alert but confused. Awakes when I speak but confused when answering. Advance Care Planning: Adv. Directives are from 2010, pt's POA is brother Lucas Ambrose who resides in [facility], pat's 86 year old mother Ilda is [...] Insurance: N/A Prescription Coverage: yes Preferred Pharmacy: [facility] in [place], [place]. Primary Care Provider: Carroll Garcia DO [phone] Patient/Caregiver Goals of Treatment: to go to [...] longer needed); will follow up with [facility] today Plan: to go to acute rehab at discharge. A member of the Care Management team will continue to monitor progress, follow for continuity of care and assist with transition of care planning. [place] Leong RN Pager: [phone] * Care Management - [place] Leong RN - 04/12/2018 2:33 PM EDT Based on discussions with the multi-disciplinary healthcare team, the patient would benefit from acute inpatient rehab. level of care at discharge. ?? I have met with the patient/senior outside sales representative to discuss discharge planning needs. I have provided the [facility], Office of Care Management letter from the Physical Therapy Attendant pertaining to rehab referrals. I have also provided a letter describing our affiliations within the [facility] and educated them about their right to choose where referrals are placed. ?? I reviewed the different levels of rehab including SNF, swing, acute and LTAC with the patient/senior outside sales representative. ?? The patient/senior outside sales representative has been provided a list of facilities within their preferred geographic area. ?? I have requested that the patient/senior outside sales representative provide at least three choices for referral. ?? The patient/senior outside sales representative have requested referrals to: ?? 1. [facility] [place], [place] ?? 2. [facility] ?? 3. [facility]. ?? Expected date of discharge: next 24-72 hours Note routed to Medical Detailist who will communicate referrals to facilities and provide any required information. * Consult Note - Ashlie Willis RPH - 04/12/2018 10:24 AM EDT Clinical Pharmacist Note - Renal Dose Adjustment for Antimicrobials Christy Ambrose (A# [id number]) is being treated with the following antimicrobial [...] Anticipated Discharge Disposition: inpatient rehabilitation facility Pager: [phone] RAFAELA ALONZO OT 04/11/2018 Occupational Therapy Rehabilitation [...] Comment Patient lives with his mother at [facility]. Ramp to enter, then elevator to 5th floor. Once inside, single floor. Tub shower, no chair. Regular bed Functional Level Prior Prior Functional Level Comment Reports independence with all ADL/IADL tasks. Drives. Works at the [employer]. Only ambulates with a cane on the [...] Assessment/Treatment Assistive Device (Bed Mobility) bed rails Qyrttn-fq-Kqo Carbon (Bed Mobility) minimum assist (75% patient effort) Comment (Bed Mobility) HOB elevated Transfer Assessment/Treatment Carbon (Sit-Stand Transfers) moderate assist (50% patient effort);2 person assist required;verbal cues required Carbon (Stand-Sit Transfers) moderate assist (50% patient effort);2 person assist required;verbal cues required Hzz-Akvyc-Uov Assistive Device (Transfers) (Initally stood w/o any AD. Poor balance ) Gait Assessment/Treatment Carbon (Gait) moderate assist (50% patient effort);2 person [...] Body Dressing Assessment/Training Position (UB Dressing) sitting Carbon Level (UB Dressing) minimum assist (75% patient effort) Lower Body Dressing Assessment/Training Position (LB Dressing) sitting Carbon Level (LB Dressing) minimum assist (75% patient [...] were not included. Infiltration/Extravasation Scale Christy Ambrose [id number] IC18/IC18-A Infiltration appearance: Infiltration harm % for [...] to comfort. MD at the Pt's bedside. PLASTER PATTERN CASTER CARING FOR THIS PATIENT WILL CONTINUE TO [...] chair to 2 hour intervals. Use a [employer] chair cushion beneath patient at all times while in the chair. Reinforce teaching to shift weight every 15 minutes while in the chair. Following hospital standard for pressure ulcer prevention and skin care. Refer to adult/pediatric pressure ulcer prevention job aid in the clinical policy library. Wound care will follow weekly. Discussed plan with: RN: Elva Please contact MEAGHAN HOOD RN on pager [phone] or the wound care team at [phone] or pager [phone] with skin and wound care concerns or [...] Therapy Frequency: 2-3 times/wk MIGUEL ANGEL PIERCE, PREVENTIVE MEDICINE OFFICER Inpatient Speech Pathologist Pager: [phone] 04/08/18 9894 Rehab Evaluation Document Type evaluation Total Evaluation [...] patient (RN) Speech Language Pathology Goal Types PREVENTIVE MEDICINE OFFICER Goal Types Dysphagia Goal (Group) Dysphagia Goal Dysphagia Goal, Date Established 04/08/18 Dysphagia Goal, Time to Achieve by discharge Oral Nutritional Level Goal safely tolerates/maintains adequate oral nutrition;no signs/symptoms ofaspiration present Clinical Impression PREVENTIVE MEDICINE OFFICER Swallowing Diagnosis oral dysfunction;other (see comments) (Functionally appearing pharyngeal dysphagia. ) Rehab Potential/Prognosis, Swallowing good, to achieve stated therapy goals Therapy Frequency 2-3 times/wk PREVENTIVE MEDICINE OFFICER Diet Recommendation puree;thin liquids * Plan of [...] dose epi. Intubated in field. Arrived at [facility] ED intubated. Received 6 units pRBC. Transferred to [facility] and went to OR with vascular for [...] performed by Miguel Angel Moreno MD at [facility] MAIN OR ??? PRO DECOMPRESS FOREARM, BRACH ART EXPLOR Left 04/06/2018 FASCIOTOMY, FOREARM, WITH BRACHIAL ARTERY EXPLORATION (WRVU 8.41) performed by Lida Peter MDat [facility] MA[facility] OR ??? PRO DIRECT REPAIR RUPTURED ANEURYSM, AXILLO-BRACHIAL ARM INCIS Left 04/06/2018 @REPAIR, RUPTURED AXILLARY OR BRACHIAL ARTERY ANEURYSM BY ARM INCISION (WRVU *) performed by Lida Peter MD at [facility] MAIN OR ??? PRO EXC PAROTD, TOTAL, UNILAT RAD NECK Left 02/05/2016 @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, TOTAL, WITH UNILATERAL RADICAL NECK DISSECTION performed by Miguel Angel Moreno MD at [facility] MAIN OR ??? PRO EXC SKIN MALIG 3.1-4CM FACE, FACIAL Left 02/05/2016 EXC MALIGNANT LESION, 3.1 TO 4.0CM, FACE performed by Miguel Angel Moreno MD at [facility] MAIN OR ? ? PRO EXC SKIN MALIG >4CM TRUNK, ARM, LEG 04/19/2012 EXC MALIGNANT LESION, MICHAEL > 4.0CM, TRUNK performed by SABRINA MEDRANO at [facility] OR ??? PRO LAP, RADICAL NEPHRECTOMY Left 05/31/2017 @LAPAROSCOPY, RADICAL NEPHRECTOMY (WRVU 25.06) performed by Jax Mills MD at [facility] MAIN OR ??? PRO REBL VES GRAFT, UP EXTREM Left 04/06/2018 REPAIR BLOOD VESSEL WITH GRAFT OTHER THAN VEIN, UPPER EXTREMITY (WRVU 15.83) performed by Lida Peter MD at [facility] MAIN OR ??? PRO RELIEVE PRESSURE ON NERVE(S) Left 04/06/2018 (MSURG) CARPAL TUNNEL (WRVU 4.82) performed by Hay Sparks MD at [facility] OR ??? PRO REPAIR INTERMEDIATE S/A/T/E 2.6-7.5 CM 04/19/2012 REPAIR INTERMEDIATE WOUND, (NO HANDS OR FEET) 2.6 TO 7.5CM, UPPER EXTREMITY performed by SABRINA MEDRANO at [facility] MAIN OR ??? PRO REVISE MEDIAN N/CARPAL TUNNEL SURG Left 04/06/2018 MEDIAN NERVE DECOMPRESSION (CARPAL TUNNEL RELEASE) (WRVU 4.97) performed by Lida Peter MD Pending sale to [facility] OR ? ? PRO SPLIT GRFT, HEAD, FAC, HAND, FEET <100SQCM N/A 02/20/2016 SPLIT THICKNESS SKIN SPLIT GRAFT,100SQ CM OR LESS, NECK performed by Miguel Angel Moreno MD at [facility] MA[facility] OR ??? PRO UPPER GI ENDOSCOPY, BIOPSY N/A 05/13/2017 EGD WITH BIOPSY (WRVU 2.49) performed by Aditya Barerra MD at [facility] ENDOSCOPY ??? PRO VASCULAR SURGERY PROCEDURE UNLIST Left 11/20/2015 LIGATION\REPAIR AV FISTULA performed by Camilo Ireland MD at [facility] MAIN OR ??? PRO VASCULAR SURGERY PROCEDURE UNLIST Left 11/20/2015 EXCISION VEIN FROM HAND performed by Camilo Ireland MD at [facility] MA[facility] OR ??? 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 [...] extension 5/5 R, Elbow flexion 5/5 R Yarn Carrier LE: 5/5 R, 5/5 L Hip flexion [...] 04/07/2018 Neurology resident, PGY-3 Vascular Neurology Pager [phone] Standard [facility] Swallow Screen: This screen is [...] diet as medical provider deems appropriate. Consider PREVENTIVE MEDICINE OFFICER consult for full evaluation and diet recommendations. 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 Apparently patient was found at his home unresponsive and was pulseless requiring several rounds of chest compressions,epinephrine and IV fluid bolus with a return of spontaneous circulation.Intubated in the field and taken to [facility] received 6 units of the PRBCs,2 FFPs for hemoglobin of 4 and required 2 tourniquets for his AV fistula leaking. Transferred to [facility] and was taken to OR by vascular [...] performed by Miguel Angel Moreno MD at [facility] MA[facility] OR ??? PRO EXC PAROTD, TOTAL, UNILAT RAD NECK Left 02/05/2016 @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, TOTAL, WITH UNILATERAL RADICAL NECK DISSECTION performed by Miguel Angel Moreno MD at [facility] MAIN OR ??? PRO EXC SKIN MALIG 3.1-4CM FACE, FACIAL Left 02/05/2016 EXC MALIGNANT LESION, 3.1 TO 4.0CM, FACE performed by Miguel Angel Moreno MD at [facility] OR ? ? PRO EXC SKIN MALIG >4CM TRUNK, ARM, LEG 04/19/2012 EXC MALIGNANT LESION, MICHAEL > 4.0CM, TRUNK performed by SABRINA MEDRANO at [facility] OR ??? PRO LAP, RADICAL NEPHRECTOMY Left 05/31/2017 @LAPAROSCOPY, RADICAL NEPHRECTOMY (WRVU 25.06) performed by Jax Mills MD at [facility] MA[facility] OR ??? PRO REPAIR INTERMEDIATE S/A/T/E 2.6-7.5 CM 04/19/2012 REPAIR INTERMEDIATE WOUND, (NO HANDS OR FEET) 2.6 TO 7.5CM, UPPER EXTREMITY performed by SABRINA MEDRANO at [facility] MA[facility] OR ? ? PRO SPLIT GRFT, HEAD, FAC, HAND, FEET <100SQCM N/A 02/20/2016 SPLIT THICKNESS SKIN SPLIT GRAFT,100SQ CM OR LESS, NECK performed by Miguel Angel Moreno MD at [facility] MA[facility] OR ??? PRO UPPER GI ENDOSCOPY, BIOPSY N/A 05/13/2017 EGD WITH BIOPSY (WRVU 2.49) performed by Aditya Barrera MD at [facility] ENDOSCOPY ??? PRO VASCULAR SURGERY PROCEDURE UNLIST Left 11/20/2015 LIGATION\REPAIR AV FISTULA performed by Camilo Ireland MD at [facility] MAIN OR ??? PRO VASCULAR SURGERY PROCEDURE UNLIST Left 11/20/2015 EXCISION VEIN FROM HAND performed by Camilo Ireland MD at [facility] MA[facility] OR ??? US RENAL TRANSPLANT [...] Latest Ref Range: Clear Hazy (A) Spec [place] UA Latest Ref Range: 1.002 - 1.030 [...] w/ Dr.Chobanian Radha Hughes MD Nephrology Fellow #[id number] * Op Note - Bhargavi Junior MD - 04/07/2018 7:56 AM EDT [facility] Operative Note Patient Name: Christy Ambrose : [id number] MR#: [id number] Case Date: 04/06/2018 Surgeon: Surgeon(s) and Role: [...] he was found down. He presented to [facility] in hemorrhagic shock with 2 tourniquets on [...] Implant Name Type Inv. Item Serial No. Breeder Hen Service Technician Lot No. LRB No. Used Action PATCH,BIOL,XENOSURE,.8X8CM ([id number]) - [id number] IMPLANTS PATCH,BIOL,XENOSURE,.8X8CM ([id number]) 0 [facility] [id number] Implanted Infection Bundle used? No, ancef [...] Operative Note Patient Name: Christy Ambrose : [id number] MR#: [id number] Case Date: 04/06/2018 Surgeon: Surgeon(s) and Role: [...] Sparks MD - 04/06/2018 4:00 PM EDT [facility] Operative Note Patient Name: Christy Ambrose : [id number] MR#: [id number] Case Date: 04/06/2018 Surgeon: Surgeon(s) and Role: [...] SCREEN ([facility]) STAT 04/26/2018 11:42 AM EDT HEMOGRAM Routine 04/26/2018 4:39 AM EDT DIFFERENTIAL, [...] 04/17/2018 9:07 AM EDT TYPE AND SCREEN ([facility]) STAT 04/17/2018 9:07 AM EDT HEMOGRAM Routine [...] Routine 04/07/2018 5:56 AM EDT CARDIAC ENZYMES ([facility]) Routine 04/07/2018 5:55 AM EDT HEMOGLOBIN AND [...] STAT 04/06/2018 5:40 PM EDT CARDIAC ENZYMES ([facility]) STAT 04/06/2018 5:40 PM EDT APTT STAT [...] IMPLANTABLE DEVICES SCAN 04/06/2018 12:00 AM EDT TAPE SEWING MACHINE OPERATOR SCAN 04/06/2018 12:00 AM EDT FILM LIBRARY STORAGE ONLY CT HEAD AND SPINE STAT 04/06/2018 12:00 AM EDT documented in this encounter Results * (ABNORMAL) Basic Metabolic Panel (non-fasting) (05/04/2018 3:00 AM EDT) Glucose 100 65 - 199 mg/dL [facility] Comment:Diabetes: >=200 mg/d L plus symptoms Blood Urea Nitrogen 40(H) 10 - 20 mg/dL [facility] Creatinine 3.05(H) 0.80 - 1.50 mg/dL [facility] Sodium 131(L) 135 - 145 mmol/L [facility] Potassium 4.1 3.5 - 5.0 mmol/L [facility] Comment: Please note: ??Patients with WBC >100,000 may have falsely elevated Potassium levels. ??For accurate Potassium quantification in these patients send serum separator tube (gold top) for subsequent determinations. ??Contact the Clinical Chemistry Laboratory if there are any questions. Chloride 99 98 - 107 mmol/L [facility] Carbon Dioxide 19(L) 22 - 31 mmol/L [facility] Anion Gap 13 5 - 15 mmol/L [facility] Calcium 8.0(L) 8.5 - 10.5 mg/dL [facility] Est Glomerular Filtration Rate 22(L) >=60 mL/min/1. 73 m?? [facility] Comment: The eGFR was calculated using the CKD-EPI equation. As with all creatinine based estimates of kidney function, eGFR values calculated with the CKD-EPI equation are not accurate in patients with acute kidney failure, extremes of body mass or the acutely ill. [email or web address] eGFR 25(L) >=60 mL/min/1. 73 m?? [facility] Comment: The eGFR was calculated using the CKD-EPI equation. As with all creatinine based estimates of kidney function, eGFR values calculated with the CKD-EPI equation are not accurate in patients with acute kidney failure, extremes of body mass or the acutely ill. [email or web address] Blood specimen (specimen) 05/04/2018 3:00 AM EDT 05/04/2018 3:08 AM EDT Narrative Resulting Agency Comment Spec In Lab Hay Sparks MD CHEMISTRY ORDERABLES Performing Organization Address [facility] Co de Phone Number [facility] [place] [address] * Vancomycin, trough (05/03/2018 6:40 PM EDT) Pathologist [facility] Vancomycin, Trough 14.2 mg/L [facility] Comment: Therapeutic range for complicated [...] Sparks MD CHEMISTRY ORDERABLES Performing Organization Address [facility] Co de Phone Number [facility] [place] [address] * Differential, Automated (05/03/2018 3:06 AM EDT) Pathologist [facility] Neutrophil % 60.8 % [facility] Neutrophil Absolute 3.01 1.70 - 6.10 x10(3)/[facility] LABORATORY Lymph % 19.8 % [facility] Lymphocytes Abs 1.0 0.9 - 3.2 x10(3)/[facility]ORY Monocyte % 10.7 % [facility] Monocyte Abs 0.5 0.3 - 0.9 x10(3)/[facility] Eos % 8.1 % [facility] Eosinophils Abs 0.4 0.0 - 0.4 x10(3)/[facility]ORY Basophil % 0.4 % [facility] Baso Absolute 0.0 0.0 - 0.1 x10(3)/[facility] LABORATORY Immature Gran % 0.20 % [facility] Comment: Immature granulocytes(IG's)percentage and absolute count will include metamyelocytes, myelocytes, and promyelocytes. Blood smears from CBCs yielding IG's will be scanned manually for concordance. If this scan disagrees with the automated IG or if promyelocytes are noted, a manual differential will be performed. Immature Gran Absolute 0.01 0.00 - 0.04 x10(3)/[facility]ORY Blood specimen (specimen) 05/03/2018 3:06 AM EDT 05/03/2018 3:16 AM EDT Narrative Resulting Agency Comment Spec In Lab Apple Gutierrez MD HEMATOLOGY ORDERABLE S [facility] [place] [address] * (ABNORMAL) Hemogram (05/03/2018 3:06 AM EDT) White Blood Cell 5.0 4.0 - 9.5 x10(3)/[facility] LABORATORY Red Blood Cell 2.64(L) 4.58 - 5.54 x10(6)/ L [facility] Hemoglobin 8.2(L) 13.7 - 16.5 gm/dL [facility] Hematocrit 25.1(L) 40.5 - 48.5 % [facility] Mean Cell Volume 95.1(H) 82.9 - 93.1 fL [facility] Mean Cell Hemoglobin 31.1 27.5 - 32.1 pg [facility] Mean Cell Hemoglobin Concentration 32.7 32.0 - 35.7 gm/dL [facility] Platelet 160 145 - 357 x10(3)/ L [facility] RDW Standard Deviation 54.3(H) 36.0 - 45.0 fL [facility] RDW coefficient of variation 15.6(H) 11.4 - 13.8 % [facility] Mean Platelet Volume 9.0 7.6 - 12.9 fL [facility] NRBC% auto 0.0 % [facility] NRBC Absolute 0.000 0.000 - 0.000 x10(3)/mc L [facility] Blood specimen (specimen) 05/03/2018 3:06 AM EDT 05/03/2018 3:16 AM EDT Narrative Resulting Agency Comment Spec In Lab Apple Gutierrez MD HEMATOLOGY ORDERABLE S [facility] [place] [address] * (ABNORMAL) Basic Metabolic Panel (non-fasting) (05/03/2018 3:06 AM EDT) Glucose 99 65 - 199 mg/dL [facility] Comment:Diabetes: >=200 mg/d L plus symptoms Blood Urea Nitrogen 35(H) 10 - 20 mg/dL [facility] Creatinine 2.58(H) 0.80 - 1.50 mg/dL [facility] Sodium 135 135 - 145 mmol/L [facility] Potassium 4.2 3.5 - 5.0 mmol/L [facility] Comment: Please note: ??Patients with WBC >100,000 may have falsely elevated Potassium levels. ??For accurate Potassium quantification in these patients send serum separator tube (gold top) for subsequent determinations. ??Contact the Clinical Chemistry Laboratory if there are any questions. Chloride 101 98 - 107 mmol/L [facility] Carbon Dioxide 20(L) 22 - 31 mmol/L [facility] Anion Gap 14 5 - 15 mmol/L [facility] Calcium 7.9(L) 8.5 - 10.5 mg/dL [facility] Est Glomerular Filtration Rate 27(L) >=60 mL/min/1. 73 m?? [facility] Comment: The eGFR was calculated using the CKD-EPI equation. As with all creatinine based estimates of kidney function, eGFR values calculated with the CKD-EPI equation are not accurate in patients with acute kidney failure, extremes of body mass or the acutely ill. [email or web address] eGFR 31(L) >=60 mL/min/1. 73 m?? [facility] Comment: The eGFR was calculated using the CKD-EPI equation. As with all creatinine based estimates of kidney function, eGFR values calculated with the CKD-EPI equation are not accurate in patients with acute kidney failure, extremes of body mass or the acutely ill. [email or web address] Blood specimen (specimen) 05/03/2018 3:06 AM EDT 05/03/2018 3:16 AM EDT Narrative Resulting Agency Comment Spec In Lab Hay Sparks MD CHEMISTRY ORDERABLES Performing Organization Address City/State/[facility] Co de Phone Number [facility] [place] [address] * Differential, Automated (05/02/2018 3:20 AM EDT) Neutrophil % 60.2 % [facility] Neutrophil Absolute 2.89 1.70 - 6.10 x10(3)/[facility] LAB[facility] Lymph % 20.8 % [facility] Lymphocytes Abs 1.0 0.9 - 3.2 x10(3)/[facility] Monocyte % 9.2 % [facility] Monocyte Abs 0.4 0.3 - 0.9 x10(3)/[facility] Eos % 8.8 % [facility] Eosinophils Abs 0.4 0.0 - 0.4 x10(3)/[facility] Basophil % 0.6 % [facility] Baso Absolute 0.0 0.0 - 0.1 x10(3)/[facility] Immature Gran % 0.40 % [facility] Comment: Immature granulocytes(IG's)percentage and absolute count will include metamyelocytes, myelocytes, and promyelocytes. Blood smears from CBCs yielding IG's will be scanned manually for concordance. If this scan disagrees with the automated IG or if promyelocytes are noted, a manual differential will be performed. Immature Gran Absolute 0.02 0.00 - 0.04 x10(3)/mcL [facility] Blood specimen (specimen) 05/02/2018 3:20 AM EDT 05/02/2018 3:26 AM EDT Narrative Resulting Agency Comment Spec In Lab Apple Gutierrez MD HEMATOLOGY ORDERABLE S [facility] [place] [address] * (ABNORMAL) Hemogram (05/02/2018 3:20 AM EDT) White Blood Cell 4.8 4.0 - 9.5 x10(3)/mc L [facility] Red Blood Cell 2.61(L) 4.58 - 5.54 x10(6)/mc L [facility] Hemoglobin 8.2(L) 13.7 - 16.5 gm/dL [facility] Hematocrit 24.6(L) 40.5 - 48.5 % [facility] Mean Cell Volume 94.3(H) 82.9 - 93.1 fL [facility] Mean Cell Hemoglobin 31.4 27.5 - 32.1 pg [facility] Mean Cell Hemoglobin Concentration 33.3 32.0 - 35.7 gm/dL [facility] Platelet 168 145 - 357 x10(3)/mc L [facility] RDW Standard Deviation 54.4(H) 36.0 - 45.0 [facility] RDW coefficient of variation 15.5(H) 11.4 - 13.8 % [facility] Mean Platelet Volume 8.7 7.6 - 12.9 fL [facility] NRBC% auto 0.0 % [facility] NRBC Absolute 0.000 0.000 - 0.000 x10(3)/mc L [facility] Blood specimen (specimen) 05/02/2018 3:20 AM EDT 05/02/2018 3:26 AM EDT Narrative Resulting Agency Comment Spec In Lab Apple Gutierrez MD HEMATOLOGY ORDERABLE S [facility] [place] [address] * (ABNORMAL) Basic Metabolic Panel (non-fasting) (05/02/2018 3:20 AM EDT) Glucose 94 65 - 199 mg/dL [facility] Comment:Diabetes: >=200 mg/d L plus symptoms Blood Urea Nitrogen 38(H) 10 - 20 mg/dL [facility] Creatinine 2.73(H) 0.80 - 1.50 mg/dL [facility] Sodium 135 135 - 145 mmol/L [facility] Potassium 4.3 3.5 - 5.0 mmol/L [facility] Comment: Please note: ??Patients with WBC >100,000 may have falsely elevated Potassium levels. ??For accurate Potassium quantification in these patients send serum separator tube (gold top) for subsequent determinations. ??Contact the Clinical Chemistry Laboratory if there are any questions. Chloride 103 98 - 107 mmol/L [facility] Carbon Dioxide 19(L) 22 - 31 mmol/L [facility] Anion Gap 13 5 - 15 mmol/L [facility] Calcium 7.7(L) 8.5 - 10.5 mg/dL [facility] Est Glomerular Filtration Rate 25(L) >=60 mL/min/1. 73 m?? [facility] Comment: The eGFR was calculated using the CKD-EPI equation. As with all creatinine based estimates of kidney function, eGFR values calculated with the CKD-EPI equation are not accurate in patients with acute kidney failure, extremes of body mass or the acutely ill. [email or web address] eGFR 29(L) >=60 mL/min/1. 73 m?? [facility] Comment: The eGFR was calculated using the CKD-EPI equation. As with all creatinine based estimates of kidney function, eGFR values calculated with the CKD-EPI equation are not accurate in patients with acute kidney failure, extremes of body mass or the acutely ill. [email or web address] Blood specimen (specimen) 05/02/2018 3:20 AM EDT 05/02/2018 3:25 AM EDT Narrative Resulting Agency Comment Spec In Lab Hay Sparks MD CHEMISTRY ORDERABLES [facility] [place] [address] * Differential, Automated (05/01/2018 4:00 AM EDT) Neutrophil % 60.0 % [facility] Neutrophil Absolute 2.98 1.70 - 6.10 x10(3)/[facility] Lymph % 21.2 % [facility] Lymphocytes Abs 1.0 0.9 - 3.2 x10(3)/[facility] Monocyte % 9.7 % [facility] Monocyte Abs 0.5 0.3 - 0.9 x10(3)/[facility] Eos % 8.1 % [facility] Eosinophils Abs 0.4 0.0 - 0.4 x10(3)/[facility] Basophil % 0.8 % [facility] Baso Absolute 0.0 0.0 - 0.1 x10(3)/[facility] Immature Gran % 0.20 % [facility] Comment: Immature granulocytes(IG's)percentage and absolute count will include metamyelocytes, myelocytes, and promyelocytes. Blood smears from CBCs yielding IG's will be scanned manually for concordance. If this scan disagrees with the automated IG or if promyelocytes are noted, a manual differential will be performed. Immature Gran Absolute 0.01 0.00 - 0.04 x10(3)/[facility] Blood specimen (specimen) 05/01/2018 4:00 AM EDT 05/01/2018 4:13 AM EDT Narrative Resulting Agency Comment Spec In Lab Apple Gutierrez MD HEMATOLOGY ORDERABLE S [facility] [place] [address] * (ABNORMAL) Hemogram (05/01/2018 4:00 AM EDT) White Blood Cell 5.0 4.0 - 9.5 x10(3)/[facility] LABOR[facility]ORY Red Blood Cell 2.71(L) 4.58 - 5.54 x10(6)/[facility] Hemoglobin 8.2(L) 13.7 - 16.5 gm/dL [facility] Hematocrit 25.6(L) 40.5 - 48.5 % [facility] Mean Cell Volume 94.5(H) 82.9 - 93.1 [facility] Mean Cell Hemoglobin 30.3 27.5 - 32.1 pg [facility] Mean Cell Hemoglobin Concentration 32.0 32.0 - 35.7 gm/dL [facility] Platelet 192 145 - 357 x10(3)/[facility] RDW Standard Deviation 53.5(H) 36.0 - 45.0 [facility] RDW coefficient of variation 15.5(H) 11.4 - 13.8 % [facility] Mean Platelet Volume 8.9 7.6 - 12.9 [facility] NRBC% auto 0.0 % [facility] NRBC Absolute 0.000 0.000 - 0.000 x10(3)/ L [facility] Blood specimen (specimen) 05/01/2018 4:00 AM EDT 05/01/2018 4:13 AM EDT Narrative Resulting Agency Comment Spec In Lab Apple Gutierrez MD HEMATOLOGY ORDERABLE S [facility] [place] [address] * (ABNORMAL) Basic Metabolic Panel (non-fasting) (05/01/2018 4:00 AM EDT) Glucose 101 65 - 199 mg/dL [facility] Comment:Diabetes: >=200 mg/d L plus symptoms Blood Urea Nitrogen 36(H) 10 - 20 mg/dL [facility] Creatinine 2.66(H) 0.80 - 1.50 mg/dL [facility] Sodium 134(L) 135 - 145 mmol/L [facility] Potassium 3.9 3.5 - 5.0 mmol/L [facility] Comment: Please note: ??Patients with WBC >100,000 may have falsely elevated Potassium levels. ??For accurate Potassium quantification in these patients send serum separator tube (gold top) for subsequent determinations. ??Contact the Clinical Chemistry Laboratory if there are any questions. Chloride 101 98 - 107 mmol/L [facility] Carbon Dioxide 19(L) 22 - 31 mmol/L [facility] Anion Gap 14 5 - 15 mmol/L [facility] Calcium 8.0(L) 8.5 - 10.5 mg/dL [facility] Est Glomerular Filtration Rate 26(L) >=60 mL/min/1. 73 m?? [facility] Comment: The eGFR was calculated using the CKD-EPI equation. As with all creatinine based estimates of kidney function, eGFR values calculated with the CKD-EPI equation are not accurate in patients with acute kidney failure, extremes of body mass or the acutely ill. [email or web address] eGFR 30(L) >=60 mL/min/1. 73 m?? [facility] Comment: The eGFR was calculated using the CKD-EPI equation. As with all creatinine based estimates of kidney function, eGFR values calculated with the CKD-EPI equation are not accurate in patients with acute kidney failure, extremes of body mass or the acutely ill. [email or web address] Blood specimen (specimen) 05/01/2018 4:00 AM EDT 05/01/2018 4:13 AM EDT Narrative Resulting Agency Comment Spec In Lab Hay Sparks MD CHEMISTRY ORDERABLES Performing Organization Address [facility] Co de Phone Number [facility] [place] [address] * Vancomycin, trough (04/30/2018 7:05 PM EDT) Pathologist [facility] Vancomycin, Trough 15.3 mg/L [facility] Comment: Therapeutic range for complicated [...] Sparks MD CHEMISTRY ORDERABLES Performing Organization Address [facility] Co de Phone Number [facility] [place] [place] [address] * Differential, Automated (04/30/2018 2:55 AM EDT) Neutrophil % 60.3 % [facility] Neutrophil Absolute 3.15 1.70 - 6.10 x10(3)/mcL [facility] Lymph % 22.8 % [facility] Lymphocytes Abs 1.2 0.9 - 3.2 x10(3)/[facility] Monocyte % 10.2 % [facility] Monocyte Abs 0.5 0.3 - 0.9 x10(3)/[facility] Eos % 5.7 % [facility] Eosinophils Abs 0.3 0.0 - 0.4 x10(3)/[facility] Basophil % 0.6 % [facility] Baso Absolute 0.0 0.0 - 0.1 x10(3)/[facility] Immature Gran % 0.40 % [facility] Comment: Immature granulocytes(IG's)percentage and absolute count will include metamyelocytes, myelocytes, and promyelocytes. Blood smears from CBCs yielding IG's will be scanned manually for concordance. If this scan disagrees with the automated IG or if promyelocytes are noted, a manual differential will be performed. Immature Gran Absolute 0.02 0.00 - 0.04 x10(3)/[facility] Blood specimen (specimen) 04/30/2018 2:55 AM EDT 04/30/2018 3:06 AM EDT Narrative Resulting Agency Comment Spec In Lab Apple Gutierrez MD HEMATOLOGY ORDERABLE S [facility] [place] [address] * (ABNORMAL) Hemogram (04/30/2018 2:55 AM EDT) White Blood Cell 5.2 4.0 - 9.5 x10(3)/mc L [facility] Red Blood Cell 2.53(L) 4.58 - 5.54 x10(6)/mc L [facility] Hemoglobin 7.9(L) 13.7 - 16.5 gm/dL [facility] Hematocrit 24.3(L) 40.5 - 48.5 % [facility] Mean Cell Volume 96.0(H) 82.9 - 93.1 fL [facility] Mean Cell Hemoglobin 31.2 27.5 - 32.1 pg [facility] Mean Cell Hemoglobin Concentration 32.5 32.0 - 35.7 gm/dL [facility] Platelet 186 145 - 357 x10(3)/mc L [facility] RDW Standard Deviation 54.7(H) 36.0 - 45.0 fL [facility] RDW coefficient of variation 15.6(H) 11.4 - 13.8 % [facility] Mean Platelet Volume 8.7 7.6 - 12.9 fL [facility] NRBC% auto 0.0 % [facility] NRBC Absolute 0.000 0.000 - 0.000 x10(3)/mc L [facility] Blood specimen (specimen) 04/30/2018 2:55 AM EDT 04/30/2018 3:06 AM EDT Narrative Resulting Agency Comment Spec In Lab Apple Gutierrez MD HEMATOLOGY ORDERABLE S [facility] [place] [address] * (ABNORMAL) Basic Metabolic Panel (non-fasting) (04/30/2018 2:55 AM EDT) Glucose 96 65 - 199 mg/dL [facility] Comment:Diabetes: >=200 mg/d L plus symptoms Blood Urea Nitrogen 39(H) 10 - 20 mg/dL [facility] Creatinine 2.94(H) 0.80 - 1.50 mg/dL [facility] Sodium 135 135 - 145 mmol/L [facility] Potassium 4.5 3.5 - 5.0 mmol/L [facility] Comment: Please note: ??Patients with WBC >100,000 may have falsely elevated Potassium levels. ??For accurate Potassium quantification in these patients send serum separator tube (gold top) for subsequent determinations. ??Contact the Clinical Chemistry Laboratory if there are any questions. Chloride 100 98 - 107 mmol/L [facility] Carbon Dioxide 21(L) 22 - 31 mmol/L [facility] Anion Gap 14 5 - 15 mmol/L [facility] Calcium 8.1(L) 8.5 - 10.5 mg/dL [facility] Est Glomerular Filtration Rate 23(L) >=60 mL/min/1. 73 m?? [facility] Comment: The eGFR was calculated using the CKD-EPI equation. As with all creatinine based estimates of kidney function, eGFR values calculated with the CKD-EPI equation are not accurate in patients with acute kidney failure, extremes of body mass or the acutely ill. [email or web address] [email or web address] eGFR 26(L) >=60 mL/min/1. 73 m?? [facility] Comment: The eGFR was calculated using the CKD-EPI equation. As with all creatinine based estimates of kidney function, eGFR values calculated with the CKD-EPI equation are not accurate in patients with acute kidney failure, extremes of body mass or the acutely ill. [email or web address] [email or web address] Blood specimen (specimen) 04/30/2018 2:55 AM EDT 04/30/2018 3:06 AM EDT Narrative Resulting Agency Comment Spec In Lab Hay Sparks MD CHEMISTRY ORDERABLES [facility] [place] [address] * Vancomycin, trough (04/29/2018 5:15 PM EDT) Vancomycin, Trough 15.9 mg/L M [facility] Comment: Therapeutic range for complicated [...] MD CHEMISTRY ORDERAB LES Performing Organization Address [facility] de Phone Number [facility] [place] [address] * Vancomycin, trough (04/29/2018 6:55 AM EDT) Vancomycin, Trough 19.5 mg/L [facility] Comment: Therapeutic range for complicated [...] Sparks MD CHEMISTRY ORDERABLES Performing Organization Address [facility] Co de Phone Number [facility] [place] [address] * Differential, Automated (04/29/2018 5:40 AM EDT) Neutrophil % 63.0 % [facility] Neutrophil Absolute 3.22 1.70 - 6.10 x10(3)/[facility] Lymph % 21.1 % [facility] Lymphocytes Abs 1.1 0.9 - 3.2 x10(3)/[facility] Monocyte % 9.0 % [facility] Monocyte Abs 0.5 0.3 - 0.9 x10(3)/[facility] Eos % 5.5 % [facility] Eosinophils Abs 0.3 0.0 - 0.4 x10(3)/[facility] Basophil % 0.8 % [facility] Baso Absolute 0.0 0.0 - 0.1 x10(3)/[facility] Immature Gran % 0.60 % [facility] Comment: Immature granulocytes(IG's)percentage and absolute count will include metamyelocytes, myelocytes, and promyelocytes. Blood smears from CBCs yielding IG's will be scanned manually for concordance. If this scan disagrees with the automated IG or if promyelocytes are noted, a manual differential will be performed. Immature Gran Absolute 0.03 0.00 - 0.04 x10(3)/[facility] Blood specimen (specimen) 04/29/2018 5:40 AM EDT 04/29/2018 6:11 AM EDT Narrative Resulting Agency Comment Spec In Lab Apple Gutierrez MD HEMATOLOGY ORDERABLE S [facility] [place] [address] * (ABNORMAL) Hemogram (04/29/2018 5:40 AM EDT) White Blood Cell 5.1 4.0 - 9.5 x10(3)/mc L [facility] Red Blood Cell 2.56(L) 4.58 - 5.54 x10(6)/mc L [facility] Hemoglobin 7.7(L) 13.7 - 16.5 gm/dL [facility] Hematocrit 24.2(L) 40.5 - 48.5 % [facility] Mean Cell Volume 94.5(H) 82.9 - 93.1 fL [facility] Mean Cell Hemoglobin 30.1 27.5 - 32.1 pg [facility] Mean Cell Hemoglobin Concentration 31.8(L) 32.0 - 35.7 gm/dL [facility] Platelet 216 145 - 357 x10(3)/ L [facility] RDW Standard Deviation 53.7(H) 36.0 - 45.0 fL [facility] RDW coefficient of variation 15.4(H) 11.4 - 13.8 % [facility] Mean Platelet Volume 8.9 7.6 - 12.9 fL [facility] NRBC% auto 0.0 % [facility] NRBC Absolute 0.000 0.000 - 0.000 x10(3)/mc L [facility] Blood specimen (specimen) 04/29/2018 5:40 AM EDT 04/29/2018 6:11 AM EDT Narrative Resulting Agency Comment Spec In Lab Apple Gutierrez MD HEMATOLOGY ORDERABLE S [facility] [place] [address] * (ABNORMAL) Basic Metabolic Panel (non-fasting) (04/29/2018 5:40 AM EDT) Glucose 91 65 - 199 mg/dL [facility] Comment:Diabetes: >=200 mg/d L plus symptoms Blood Urea Nitrogen 41(H) 10 - 20 mg/dL [facility] Creatinine 2.51(H) 0.80 - 1.50 mg/dL [facility] Sodium 136 135 - 145 mmol/L [facility] Potassium 4.9 3.5 - 5.0 mmol/L [facility] Comment: Please note: ??Patients with WBC >100,000 may have falsely elevated Potassium levels. ??For accurate Potassium quantification in these patients send serum separator tube (gold top) for subsequent determinations. ??Contact the Clinical Chemistry Laboratory if there are any questions. Chloride 104 98 - 107 mmol/L [facility] Carbon Dioxide 21(L) 22 - 31 mmol/L [facility] Anion Gap 11 5 - 15 mmol/L [facility] Calcium 8.0(L) 8.5 - 10.5 mg/dL [facility] Est Glomerular Filtration Rate 28(L) >=60 mL/min/1. 73 m?? [facility] Comment: The eGFR was calculated using the CKD-EPI equation. As with all creatinine based estimates of kidney function, eGFR values calculated with the CKD-EPI equation are not accurate in patients with acute kidney failure, extremes of body mass or the acutely ill. [email or web address] [email or web address] eGFR 32(L) >=60 mL/min/1. 73 m?? [facility] Comment: The eGFR was calculated using the CKD-EPI equation. As with all creatinine based estimates of kidney function, eGFR values calculated with the CKD-EPI equation are not accurate in patients with acute kidney failure, extremes of body mass or the acutely ill. [email or web address] [email or web address] Blood specimen (specimen) 04/29/2018 5:40 AM EDT 04/29/2018 6:11 AM EDT Narrative Resulting Agency Comment Spec In Lab Hay Sparks MD CHEMISTRY ORDERABLES [facility] [place] [address] * (ABNORMAL) Vancomycin, trough (04/28/2018 1:09 PM EDT) Vancomycin, Trough 21.6(Crit ical) mg/L [facility] Comment: Called by: MASSIEL, Read [...] Sparks MD CHEMISTRY ORDERABLES Performing Organization Address City/[facility]/ZIP Co de Phone Number [facility] [place] [address] * EKG 12 Lead (04/28/2018 7:17 AM EDT) Ventricular rate 51 BPM MUSE SYSTEM Atrial Rate 51 BPM MUSE SYSTEM P-R Interval 162 ms MUSE SYSTEM QRS Duration 92 ms MUSE SYSTEM Q-T Interval 442 ms MUSE SYSTEM QTC Calculated (Bezet) 407 ms MUSE SYSTEM Calculated P Bowie 59 degrees MUSE SYSTEM Calculated R Bowie 35 degrees MUSE SYSTEM Calculated T Bowie 34 degrees MUSE SYSTEM INTERPRETATION Sinus bradycardia Otherwise normal ECG When compared with ECG of 26-MAY-2017 11:16, No significant change was found Confirmed by MD Aure, Sukumar Rubi ([id number]) on 04/29/2018 1:34:03 PM MUSE SYSTEM 04/28/2018 7:17 AM EDT 04/29/2018 1:34 PM EDT Chase Olvera MD ECG ORDERABLES Performing Organization Address City/[facility]/ZIP Co de Phone Number MUSE SYSTEM * Differential, Automated (04/28/2018 4:40 AM EDT) Neutrophil % 66.6 % [facility] Neutrophil Absolute 4.11 1.70 - 6.10 x10(3)/[facility] Lymph % 23.5 % [facility] Lymphocytes Abs 1.4 0.9 - 3.2 x10(3)/[facility] Monocyte % 7.8 % [facility] Monocyte Abs 0.5 0.3 - 0.9 x10(3)/[facility] Eos % 1.5 % [facility] Eosinophils Abs 0.1 0.0 - 0.4 x10(3)/[facility] Basophil % 0.3 % [facility] Baso Absolute 0.0 0.0 - 0.1 x10(3)/[facility] Immature Gran % 0.30 % [facility] Comment: Immature granulocytes(IG's)percentage and absolute count will include metamyelocytes, myelocytes, and promyelocytes. Blood smears from CBCs yielding IG's will be scanned manually for concordance. If this scan disagrees with the automated IG or if promyelocytes are noted, a manual differential will be performed. Immature Gran Absolute 0.02 0.00 - 0.04 x10(3)/[facility] Blood specimen (specimen) 04/28/2018 4:40 AM EDT 04/28/2018 4:53 AM EDT Narrative Resulting Agency Comment Spec In Lab Apple Gutierrez MD HEMATOLOGY ORDERABLE S [facility] [place] [address] * (ABNORMAL) Hemogram (04/28/2018 4:40 AM EDT) White Blood Cell 6.2 4.0 - 9.5 x10(3)/[facility] Red Blood Cell 2.54(L) 4.58 - 5.54 x10(6)/mc L [facility] Hemoglobin 7.6(L) 13.7 - 16.5 gm/dL [facility] Hematocrit 24.3(L) 40.5 - 48.5 % [facility] Mean Cell Volume 95.7(H) 82.9 - 93.1 fL [facility] Mean Cell Hemoglobin 29.9 27.5 - 32.1 pg [facility] Mean Cell Hemoglobin Concentration 31.3(L) 32.0 - 35.7 gm/dL [facility] Platelet 249 145 - 357 x10(3)/mc L [facility] RDW Standard Deviation 55.3(H) 36.0 - 45.0 fL [facility] RDW coefficient of variation 15.6(H) 11.4 - 13.8 % [facility] Mean Platelet Volume 8.7 7.6 - 12.9 fL [facility] NRBC% auto 0.0 % [facility] NRBC Absolute 0.000 0.000 - 0.000 x10(3)/mc L [facility] Blood specimen (specimen) 04/28/2018 4:40 AM EDT 04/28/2018 4:53 AM EDT Narrative Resulting Agency Comment Spec In Lab Apple Gutierrez MD HEMATOLOGY ORDERABLE S [facility] [place] [address] * (ABNORMAL) Basic Metabolic Panel (non-fasting) (04/28/2018 4:40 AM EDT) Glucose 94 65 - 199 mg/dL [facility] Comment:Diabetes: >=200 mg/d L plus symptoms Blood Urea Nitrogen 44(H) 10 - 20 mg/dL [facility] Creatinine 2.80(H) 0.80 - 1.50 mg/dL [facility] Sodium 133(L) 135 - 145 mmol/L [facility] Potassium 4.9 3.5 - 5.0 mmol/L [facility] Comment: Please note: ??Patients with WBC >100,000 may have falsely elevated Potassium levels. ??For accurate Potassium quantification in these patients send serum separator tube (gold top) for subsequent determinations. ??Contact the Clinical Chemistry Laboratory if there are any questions. Chloride 101 98 - 107 mmol/L [facility] Carbon Dioxide 20(L) 22 - 31 mmol/L [facility] Anion Gap 12 5 - 15 mmol/L [facility] Calcium 8.1(L) 8.5 - 10.5 mg/dL [facility] Est Glomerular Filtration Rate 24(L) >=60 mL/min/1. 73 m?? [facility] Comment: The eGFR was calculated using the CKD-EPI equation. As with all creatinine based estimates of kidney function, eGFR values calculated with the CKD-EPI equation are not accurate in patients with acute kidney failure, extremes of body mass or the acutely ill. [email or web address] [email or web address] eGFR 28(L) >=60 mL/min/1. 73 m?? [facility] Comment: The eGFR was calculated using the CKD-EPI equation. As with all creatinine based estimates of kidney function, eGFR values calculated with the CKD-EPI equation are not accurate in patients with acute kidney failure, extremes of body mass or the acutely ill. [email or web address] [email or web address] Blood specimen (specimen) 04/28/2018 4:40 AM EDT 04/28/2018 4:53 AM EDT Narrative Resulting Agency Comment Spec In Lab Hay Sparks MD CHEMISTRY ORDERABLES Performing Organization Address [facility] Co de Phone Number [facility] [place] [address] * Vancomycin, trough (04/27/2018 1:30 PM EDT) Vancomycin, Trough 11.1 mg/L [facility] Comment: Therapeutic range for complicated [...] Sparks MD CHEMISTRY ORDERABLES Performing Organization Address [facility] Co de Phone Number [facility] [place] [address] * XR PICC Placement Over 5 Years [...] 4:43 AM EDT) Neutrophil % 84.4 % [facility] Neutrophil Absolute 4.96 1.70 - 6.10 x10(3)/mc L [facility] Lymph % 9.7 % [facility] Lymphocytes Abs 0.6(L) 0.9 - 3.2 x10(3)/mc L [facility] Monocyte % 5.5 % [facility] Monocyte Abs 0.3 0.3 - 0.9 x10(3)/mc L [facility] Eos % 0.0 % [facility] Eosinophils Abs 0.0 0.0 - 0.4 x10(3)/mc L [facility] Basophil % 0.2 % [facility] Baso Absolute 0.0 0.0 - 0.1 x10(3)/ L [facility] Immature Gran % 0.20 % [facility] Comment: Immature granulocytes(IG's)percentage and absolute count will include metamyelocytes, myelocytes, and promyelocytes. Blood smears from CBCs yielding IG's will be scanned manually for concordance. If this scan disagrees with the automated IG or if promyelocytes are noted, a manual differential will be performed. Immature Gran Absolute 0.01 0.00 - 0.04 x10(3)/[facility] Blood specimen (specimen) 04/27/2018 4:43 AM EDT 04/27/2018 5:16 AM EDT Narrative Resulting Agency Comment Spec In Lab Apple Gutierrez MD HEMATOLOGY ORDERABLE S Performing Organization Address City/State/[facility] Co de Phone Number [facility] [place] [address] * (ABNORMAL) Hemogram (04/27/2018 4:43 AM EDT) White Blood Cell 5.9 4.0 - 9.5 x10(3)/[facility] Red Blood Cell 2.81(L) 4.58 - 5.54 x10(6)/ L [facility] Hemoglobin 8.8(L) 13.7 - 16.5 gm/dL [facility] Hematocrit 27.0(L) 40.5 - 48.5 % [facility] Mean Cell Volume 96.1(H) 82.9 - 93.1 fL [facility] Mean Cell Hemoglobin 31.3 27.5 - 32.1 pg [facility] Mean Cell Hemoglobin Concentration 32.6 32.0 - 35.7 gm/dL [facility] Platelet 302 145 - 357 x10(3)/[facility] RDW Standard Deviation 54.9(H) 36.0 - 45.0 fL [facility] RDW coefficient of variation 15.5(H) 11.4 - 13.8 % [facility] Mean Platelet Volume 8.8 7.6 - 12.9 fL [facility] NRBC% auto 0.0 % [facility] NRBC Absolute 0.000 0.000 - 0.000 x10(3)/mc L [facility] Blood specimen (specimen) 04/27/2018 4:43 AM EDT 04/27/2018 5:16 AM EDT Narrative Resulting Agency Comment Spec In Lab Apple Gutierrez MD HEMATOLOGY ORDERABLE S [facility] [place] [address] * (ABNORMAL) Basic Metabolic Panel (non-fasting) (04/27/2018 4:43 AM EDT) Glucose 142 65 - 199 mg/dL [facility] Comment:Diabetes: >=200 mg/d L plus symptoms Blood Urea Nitrogen 41(H) 10 - 20 mg/dL [facility] Creatinine 2.81(H) 0.80 - 1.50 mg/dL [facility] Sodium 132(L) 135 - 145 mmol/L [facility] Potassium 5.6(H) 3.5 - 5.0 mmol/L [facility] Comment: Please note: ??Patients with WBC >100,000 may have falsely elevated Potassium levels. ??For accurate Potassium quantification in these patients send serum separator tube (gold top) for subsequent determinations. ??Contact the Clinical Chemistry Laboratory if there are any questions. Chloride 101 98 - 107 mmol/L [facility] Carbon Dioxide 18(L) 22 - 31 mmol/L [facility] Anion Gap 13 5 - 15 mmol/L [facility] Calcium 8.4(L) 8.5 - 10.5 mg/dL [facility] Est Glomerular Filtration Rate 24(L) >=60 mL/min/1. 73 m?? [facility] Comment: The eGFR was calculated using the CKD-EPI equation. As with all creatinine based estimates of kidney function, eGFR values calculated with the CKD-EPI equation are not accurate in patients with acute kidney failure, extremes of body mass or the acutely ill. [email or web address] [email or web address] eGFR 28(L) >=60 mL/min/1. 73 m?? [facility] Comment: The eGFR was calculated using the CKD-EPI equation. As with all creatinine based estimates of kidney function, eGFR values calculated with the CKD-EPI equation are not accurate in patients with acute kidney failure, extremes of body mass or the acutely ill. [email or web address] Blood specimen (specimen) 04/27/2018 4:43 AM EDT 04/27/2018 5:16 AM EDT Narrative Resulting Agency Comment Spec In Lab Hay Sparks MD CHEMISTRY ORDERABLES [facility] [place] [id number] * (ABNORMAL) Hemogram (04/26/2018 3:09 PM EDT) White Blood Cell 4.8 4.0 - 9.5 x10(3)/mc L [facility] Red Blood Cell 2.90(L) 4.58 - 5.54 x10(6)/mc L [facility] Hemoglobin 8.8(L) 13.7 - 16.5 gm/dL [facility] Hematocrit 27.5(L) 40.5 - 48.5 % [facility] Mean Cell Volume 94.8(H) 82.9 - 93.1 fL [facility] Mean Cell Hemoglobin 30.3 27.5 - 32.1 pg [facility] Mean Cell Hemoglobin Concentration 32.0 32.0 - 35.7 gm/dL [facility] Platelet 273 145 - 357 x10(3)/mc L [facility] RDW Standard Deviation 55.8(H) 36.0 - 45.0 fL [facility] RDW coefficient of variation 15.9(H) 11.4 - 13.8 % [facility] Mean Platelet Volume 9.1 7.6 - 12.9 fL [facility] NRBC% auto 0.0 % [facility] NRBC Absolute 0.000 0.000 - 0.000 x10(3)/mc L [facility] Blood specimen (specimen) 04/26/2018 3:09 PM EDT 04/26/2018 3:16 PM EDT Narrative Resulting Agency Comment Spec In Lab Chase Olvera MD HEMATOLOGY ORDERA BLES Performing Organization Address [facility] Co de Phone Number [facility] [place] [address] * Vancomycin, trough (04/26/2018 2:15 PM EDT) Vancomycin, Trough 11.8 mg/L [facility] Comment: Therapeutic range for complicated [...] Sparks MD CHEMISTRY ORDERABLES Performing Organization Address [facility]/ZIP Co de Phone Number [facility] [place] [address] * ABORH Recheck Status (04/26/2018 11:42 AM EDT) ABORH Type Recheck Completed [facility] Blood specimen (specimen) 04/26/2018 11:42 AM EDT 04/26/2018 11:42 AM EDT Narrative Resulting Agency Comment Spec In Lab Natalya Jacobsen MD BLOOD BANK LAB ORDER KELLY Performing Organization Address City/[facility]/ZIP Co de Phone Number [facility] [place] [address] * Antibody screen (04/26/2018 11:42 AM EDT) Pathologist [facility] [facility] Ab Screen Interp Negative [facility] Expires at [id number] on: 04/29/2018 [facility] Blood specimen (specimen) 04/26/2018 11:42 AM EDT 04/26/2018 11:42 AM EDT Narrative Resulting Agency Comment Spec In Lab Natalya Jacobsen MD BLOOD BANK LAB ORDER KELLY Performing Organization Address City/[facility]/ZIP Co de Phone Number [facility] [place] [address] * ABO/Rh Typing (04/26/2018 11:42 AM EDT) Pathologist [facility] ABORH Type A Pos [facility] Blood specimen (specimen) 04/26/2018 11:42 AM EDT 04/26/2018 11:42 AM EDT Narrative Resulting Agency Comment Spec In Lab Natalya Jacobsen MD BLOOD BANK LAB ORDER KELLY Performing Organization Address City/[facility]/ZIP Co de Phone Number [facility] [place] [address] * Differential, Automated (04/26/2018 4:39 AM EDT) Neutrophil % 55.1 % [facility] Neutrophil Absolute 2.56 1.70 - 6.10 x10(3)/[facility] Lymph % 27.7 % [facility] Lymphocytes Abs 1.3 0.9 - 3.2 x10(3)/[facility] Monocyte % 10.5 % [facility] Monocyte Abs 0.5 0.3 - 0.9 x10(3)/[facility] Eos % 5.2 % [facility] Eosinophils Abs 0.2 0.0 - 0.4 x10(3)/[facility] Basophil % 1.3 % [facility] Baso Absolute 0.1 0.0 - 0.1 x10(3)/[facility] Immature Gran % 0.20 % [facility] Comment: Immature granulocytes(IG's)percentage and absolute count will include metamyelocytes, myelocytes, and promyelocytes. Blood smears from CBCs yielding IG's will be scanned manually for concordance. If this scan disagrees with the automated IG or if promyelocytes are noted, a manual differential will be performed. Immature Gran Absolute 0.01 0.00 - 0.04 x10(3)/[facility] Blood specimen (specimen) 04/26/2018 4:39 AM EDT 04/26/2018 4:58 AM EDT Narrative Resulting Agency Comment Spec In Lab Apple Gutierrez MD HEMATOLOGY ORDERABLE S [facility] [place] [address] * (ABNORMAL) Hemogram (04/26/2018 4:39 AM EDT) White Blood Cell 4.6 4.0 - 9.5 x10(3)/mc L [facility] Red Blood Cell 2.58(L) 4.58 - 5.54 x10(6)/mc L [facility] Hemoglobin 7.9(L) 13.7 - 16.5 gm/dL [facility] Hematocrit 24.6(L) 40.5 - 48.5 % [facility] Mean Cell Volume 95.3(H) 82.9 - 93.1 fL [facility] Mean Cell Hemoglobin 30.6 27.5 - 32.1 pg [facility] Mean Cell Hemoglobin Concentration 32.1 32.0 - 35.7 gm/dL [facility] Platelet 253 145 - 357 x10(3)/mc L [facility] RDW Standard Deviation 54.4(H) 36.0 - 45.0 fL [facility] RDW coefficient of variation 15.7(H) 11.4 - 13.8 % [facility] Mean Platelet Volume 8.4 7.6 - 12.9 fL [facility] NRBC% auto 0.0 % [facility] NRBC Absolute 0.000 0.000 - 0.000 x10(3)/mc L [facility] Blood specimen (specimen) 04/26/2018 4:39 AM EDT 04/26/2018 4:58 AM EDT Narrative Resulting Agency Comment Spec In Lab Apple Gutierrez MD HEMATOLOGY ORDERABLE S [facility] [place] [address] * (ABNORMAL) Basic Metabolic Panel (non-fasting) (04/26/2018 4:39 AM EDT) Glucose 93 65 - 199 mg/dL [facility] Comment:Diabetes: >=200 mg/d L plus symptoms Blood Urea Nitrogen 37(H) 10 - 20 mg/dL [facility] Creatinine 2.80(H) 0.80 - 1.50 mg/dL [facility] Sodium 138 135 - 145 mmol/L [facility] Potassium 5.2(H) 3.5 - 5.0 mmol/L [facility] Comment: Please note: ??Patients with WBC >100,000 may have falsely elevated Potassium levels. ??For accurate Potassium quantification in these patients send serum separator tube (gold top) for subsequent determinations. ??Contact the Clinical Chemistry Laboratory if there are any questions. Chloride 106 98 - 107 mmol/L [facility] Carbon Dioxide 19(L) 22 - 31 mmol/L [facility] Anion Gap 13 5 - 15 mmol/L [facility] Calcium 8.2(L) 8.5 - 10.5 mg/dL [facility] Est Glomerular Filtration Rate 24(L) >=60 mL/min/1. 73 m?? [facility] Comment: The eGFR was calculated using the CKD-EPI equation. As with all creatinine based estimates of kidney function, eGFR values calculated with the CKD-EPI equation are not accurate in patients with acute kidney failure, extremes of body mass or the acutely ill. [email or web address] eGFR 28(L) >=60 mL/min/1. 73 m?? [facility] Comment: The eGFR was calculated using the CKD-EPI equation. As with all creatinine based estimates of kidney function, eGFR values calculated with the CKD-EPI equation are not accurate in patients with acute kidney failure, extremes of body mass or the acutely ill. [email or web address] Blood specimen (specimen) 04/26/2018 4:39 AM EDT 04/26/2018 4:58 AM EDT Narrative Resulting Agency Comment Spec In Lab Hay Sparks MD CHEMISTRY ORDERABLES [facility] [place] [address] * SCAN DOC: ECG (04/26/2018 12:00 AM EDT) Narrative 04/26/2018 12:00 AM EDT Ordered by an unspecified provider. Scanning Provider MEDIA MGR SCAN EXT O RDR/RSLT * Differential, Automated (04/25/2018 5:18 AM EDT) Neutrophil % 64.9 % [facility] Neutrophil Absolute 3.49 1.70 - 6.10 x10(3)/mcL [facility] Lymph % 20.4 % [facility] Lymphocytes Abs 1.1 0.9 - 3.2 x10(3)/[facility] Monocyte % 8.0 % [facility] Monocyte Abs 0.4 0.3 - 0.9 x10(3)/[facility] Eos % 4.8 % [facility] Eosinophils Abs 0.3 0.0 - 0.4 x10(3)/[facility] Basophil % 1.5 % [facility] Baso Absolute 0.1 0.0 - 0.1 x10(3)/[facility] Immature Gran % 0.40 % [facility] Comment: Immature granulocytes(IG's)percentage and absolute count will include metamyelocytes, myelocytes, and promyelocytes. Blood smears from CBCs yielding IG's will be scanned manually for concordance. If this scan disagrees with the automated IG or if promyelocytes are noted, a manual differential will be performed. Immature Gran Absolute 0.02 0.00 - 0.04 x10(3)/[facility] Blood specimen (specimen) 04/25/2018 5:18 AM EDT 04/25/2018 5:43 AM EDT Narrative Resulting Agency Comment Spec In Lab Apple Gutierrez MD HEMATOLOGY ORDERABLE S [facility] [place] [address] * (ABNORMAL) Hemogram (04/25/2018 5:18 AM EDT) White Blood Cell 5.4 4.0 - 9.5 x10(3)/[facility] Red Blood Cell 2.70(L) 4.58 - 5.54 x10(6)/ L [facility] Hemoglobin 8.2(L) 13.7 - 16.5 gm/dL [facility] Hematocrit 26.1(L) 40.5 - 48.5 % [facility] Mean Cell Volume 96.7(H) 82.9 - 93.1 fL [facility] Mean Cell Hemoglobin 30.4 27.5 - 32.1 pg [facility] Mean Cell Hemoglobin Concentration 31.4(L) 32.0 - 35.7 gm/dL [facility] Platelet 327 145 - 357 x10(3)/mc L [facility] RDW Standard Deviation 55.7(H) 36.0 - 45.0 fL [facility] RDW coefficient of variation 15.8(H) 11.4 - 13.8 % [facility] Mean Platelet Volume 9.1 7.6 - 12.9 [facility] NRBC% auto 0.0 % [facility] NRBC Absolute 0.000 0.000 - 0.000 x10(3)/mc L [facility] Blood specimen (specimen) 04/25/2018 5:18 AM EDT 04/25/2018 5:43 AM EDT Narrative Resulting Agency Comment Spec In Lab Apple Gutierrez MD HEMATOLOGY ORDERABLE S [facility] [place] [address] * (ABNORMAL) Basic Metabolic Panel (non-fasting) (04/25/2018 5:18 AM EDT) Glucose 97 65 - 199 mg/dL [facility] Comment:Diabetes: >=200 mg/d L plus symptoms Blood Urea Nitrogen 39(H) 10 - 20 mg/dL [facility] Creatinine 2.58(H) 0.80 - 1.50 mg/dL [facility] Sodium 138 135 - 145 mmol/L [facility] Potassium 5.2(H) 3.5 - 5.0 mmol/L [facility] Comment: Please note: ??Patients with WBC >100,000 may have falsely elevated Potassium levels. ??For accurate Potassium quantification in these patients send serum separator tube (gold top) for subsequent determinations. ??Contact the Clinical Chemistry Laboratory if there are any questions. Chloride 106 98 - 107 mmol/L [facility] Carbon Dioxide 19(L) 22 - 31 mmol/L [facility] Anion Gap 13 5 - 15 mmol/L [facility] Calcium 8.1(L) 8.5 - 10.5 mg/dL [facility] Est Glomerular Filtration Rate 27(L) >=60 mL/min/1. 73 m?? [facility] Comment: The eGFR was calculated using the CKD-EPI equation. As with all creatinine based estimates of kidney function, eGFR values calculated with the CKD-EPI equation are not accurate in patients with acute kidney failure, extremes of body mass or the acutely ill. [email or web address] eGFR 31(L) >=60 mL/min/1. 73 m?? [facility] Comment: The eGFR was calculated using the CKD-EPI equation. As with all creatinine based estimates of kidney function, eGFR values calculated with the CKD-EPI equation are not accurate in patients with acute kidney failure, extremes of body mass or the acutely ill. [email or web address] Blood specimen (specimen) 04/25/2018 5:18 AM EDT 04/25/2018 5:43 AM EDT Narrative Resulting Agency Comment Spec In Lab Hay Sparks MD CHEMISTRY ORDERABLES [facility] [place] [address] * Differential, Automated (04/24/2018 4:17 AM EDT) Neutrophil % 58.3 % [facility] Neutrophil Absolute 2.74 1.70 - 6.10 x10(3)/[facility] Lymph % 24.8 % [facility] Lymphocytes Abs 1.2 0.9 - 3.2 x10(3)/[facility] Monocyte % 9.3 % [facility] Monocyte Abs 0.4 0.3 - 0.9 x10(3)/[facility] Eos % 5.9 % [facility] Eosinophils Abs 0.3 0.0 - 0.4 x10(3)/[facility] Basophil % 1.1 % [facility] Baso Absolute 0.0 0.0 - 0.1 x10(3)/[facility] Immature Gran % 0.60 % [facility] Comment: Immature granulocytes(IG's)percentage and absolute count will include metamyelocytes, myelocytes, and promyelocytes. Blood smears from CBCs yielding IG's will be scanned manually for concordance. If this scan disagrees with the automated IG or if promyelocytes are noted, a manual differential will be performed. Immature Gran Absolute 0.03 0.00 - 0.04 x10(3)/[facility] Blood specimen (specimen) 04/24/2018 4:17 AM EDT 04/24/2018 4:40 AM EDT Narrative Resulting Agency Comment Spec In Lab Apple Gutierrez MD HEMATOLOGY ORDERABLE S [facility] [place] [address] * (ABNORMAL) Hemogram (04/24/2018 4:17 AM EDT) White Blood Cell 4.7 4.0 - 9.5 x10(3)/mc L [facility] Red Blood Cell 2.61(L) 4.58 - 5.54 x10(6)/mc L [facility] Hemoglobin 7.9(L) 13.7 - 16.5 gm/dL [facility] Hematocrit 24.6(L) 40.5 - 48.5 % [facility] Mean Cell Volume 94.3(H) 82.9 - 93.1 fL [facility] Mean Cell Hemoglobin 30.3 27.5 - 32.1 pg [facility] Mean Cell Hemoglobin Concentration 32.1 32.0 - 35.7 gm/dL [facility] Platelet 283 145 - 357 x10(3)/mc L [facility] RDW Standard Deviation 54.0(H) 36.0 - 45.0 fL [facility] RDW coefficient of variation 15.7(H) 11.4 - 13.8 % [facility] Mean Platelet Volume 8.6 7.6 - 12.9 fL [facility] NRBC% auto 0.0 % [facility] NRBC Absolute 0.000 0.000 - 0.000 x10(3)/mc L [facility] Blood specimen (specimen) 04/24/2018 4:17 AM EDT 04/24/2018 4:40 AM EDT Narrative Resulting Agency Comment Spec In Lab Apple Gutierrez MD HEMATOLOGY ORDERABLE S [facility] [place] [address] * (ABNORMAL) Basic Metabolic Panel (non-fasting) (04/24/2018 4:17 AM EDT) Glucose 93 65 - 199 mg/dL [facility] Comment:Diabetes: >=200 mg/d L plus symptoms Blood Urea Nitrogen 38(H) 10 - 20 mg/dL [facility] Creatinine 2.74(H) 0.80 - 1.50 mg/dL [facility] Sodium 138 135 - 145 mmol/L [facility] Potassium 5.2(H) 3.5 - 5.0 mmol/L [facility] Comment: Please note: ??Patients with WBC >100,000 may have falsely elevated Potassium levels. ??For accurate Potassium quantification in these patients send serum separator tube (gold top) for subsequent determinations. ??Contact the Clinical Chemistry Laboratory if there are any questions. Chloride 108(H) 98 - 107 mmol/L [facility] Carbon Dioxide 20(L) 22 - 31 mmol/L [facility] Anion Gap 10 5 - 15 mmol/L [facility] Calcium 8.0(L) 8.5 - 10.5 mg/dL [facility] Est Glomerular Filtration Rate 25(L) >=60 mL/min/1. 73 m?? [facility] Comment: The eGFR was calculated using the CKD-EPI equation. As with all creatinine based estimates of kidney function, eGFR values calculated with the CKD-EPI equation are not accurate in patients with acute kidney failure, extremes of body mass or the acutely ill. [email or web address] eGFR 29(L) >=60 mL/min/1. 73 m?? [facility] Comment: The eGFR was calculated using the CKD-EPI equation. As with all creatinine based estimates of kidney function, eGFR values calculated with the CKD-EPI equation are not accurate in patients with acute kidney failure, extremes of body mass or the acutely ill. [email or web address] Blood specimen (specimen) 04/24/2018 4:17 AM EDT 04/24/2018 4:40 AM EDT Narrative Resulting Agency Comment Spec In Lab Hay Sparks MD CHEMISTRY ORDERABLES [facility] [place] [address] * Differential, Automated (04/23/2018 4:56 AM EDT) Neutrophil % 61.5 % [facility] Neutrophil Absolute 3.19 1.70 - 6.10 x10(3)/[facility] Lymph % 22.2 % [facility] Lymphocytes Abs 1.2 0.9 - 3.2 x10(3)/[facility] Monocyte % 9.5 % [facility] Monocyte Abs 0.5 0.3 - 0.9 x10(3)/[facility] Eos % 5.6 % [facility] Eosinophils Abs 0.3 0.0 - 0.4 x10(3)/[facility] Basophil % 0.8 % [facility] Baso Absolute 0.0 0.0 - 0.1 x10(3)/[facility] Immature Gran % 0.40 % [facility] Comment: Immature granulocytes(IG's)percentage and absolute count will include metamyelocytes, myelocytes, and promyelocytes. Blood smears from CBCs yielding IG's will be scanned manually for concordance. If this scan disagrees with the automated IG or if promyelocytes are noted, a manual differential will be performed. Immature Gran Absolute 0.02 0.00 - 0.04 x10(3)/[facility] Blood specimen (specimen) 04/23/2018 4:56 AM EDT 04/23/2018 5:25 AM EDT Narrative Resulting Agency Comment Spec In Lab Apple Gutierrez MD HEMATOLOGY ORDERABLE S [facility] [place] [address] * (ABNORMAL) Hemogram (04/23/2018 4:56 AM EDT) White Blood Cell 5.2 4.0 - 9.5 x10(3)/mc L [facility] Red Blood Cell 2.60(L) 4.58 - 5.54 x10(6)/mc L [facility] Hemoglobin 8.0(L) 13.7 - 16.5 gm/dL [facility] Hematocrit 24.3(L) 40.5 - 48.5 % [facility] Mean Cell Volume 93.5(H) 82.9 - 93.1 fL [facility] Mean Cell Hemoglobin 30.8 27.5 - 32.1 pg [facility] Mean Cell Hemoglobin Concentration 32.9 32.0 - 35.7 gm/dL [facility] Platelet 317 145 - 357 x10(3)/mc L [facility] RDW Standard Deviation 54.2(H) 36.0 - 45.0 fL [facility] RDW coefficient of variation 15.9(H) 11.4 - 13.8 % [facility] Mean Platelet Volume 8.5 7.6 - 12.9 fL [facility] NRBC% auto 0.0 % [facility] NRBC Absolute 0.000 0.000 - 0.000 x10(3)/mc L [facility] Blood specimen (specimen) 04/23/2018 4:56 AM EDT 04/23/2018 5:25 AM EDT Narrative Resulting Agency Comment Spec In Lab Apple Gutierrez MD HEMATOLOGY ORDERABLE S [facility] [place] [address] * (ABNORMAL) Basic Metabolic Panel (non-fasting) (04/23/2018 4:56 AM EDT) Glucose 96 65 - 199 mg/dL [facility] Comment:Diabetes: >=200 mg/d L plus symptoms Blood Urea Nitrogen 36(H) 10 - 20 mg/dL [facility] Creatinine 2.49(H) 0.80 - 1.50 mg/dL [facility] Sodium 137 135 - 145 mmol/L [facility] Potassium 4.9 3.5 - 5.0 mmol/L [facility] Comment: Please note: ??Patients with WBC >100,000 may have falsely elevated Potassium levels. ??For accurate Potassium quantification in these patients send serum separator tube (gold top) for subsequent determinations. ??Contact the Clinical Chemistry Laboratory if there are any questions. Chloride 103 98 - 107 mmol/L [facility] Carbon Dioxide 20(L) 22 - 31 mmol/L [facility] Anion Gap 14 5 - 15 mmol/L [facility] Calcium 8.1(L) 8.5 - 10.5 mg/dL [facility] Est Glomerular Filtration Rate 28(L) >=60 mL/min/1. 73 m?? [facility] Comment: The eGFR was calculated using the CKD-EPI equation. As with all creatinine based estimates of kidney function, eGFR values calculated with the CKD-EPI equation are not accurate in patients with acute kidney failure, extremes of body mass or the acutely ill. [email or web address] eGFR 32(L) >=60 mL/min/1. 73 m?? [facility] Comment: The eGFR was calculated using the CKD-EPI equation. As with all creatinine based estimates of kidney function, eGFR values calculated with the CKD-EPI equation are not accurate in patients with acute kidney failure, extremes of body mass or the acutely ill. [email or web address] Blood specimen (specimen) 04/23/2018 4:56 AM EDT 04/23/2018 5:25 AM EDT Narrative Resulting Agency Comment Spec In Lab Hay Sparks MD CHEMISTRY ORDERABLES [facility] [place] [address] * Differential, Automated (04/22/2018 5:34 AM EDT) Neutrophil % 67.1 % [facility] Neutrophil Absolute 3.67 1.70 - 6.10 x10(3)/[facility] Lymph % 17.3 % [facility] Lymphocytes Abs 1.0 0.9 - 3.2 x10(3)/[facility] Monocyte % 10.0 % [facility] Monocyte Abs 0.6 0.3 - 0.9 x10(3)/[facility] Eos % 4.7 % [facility] Eosinophils Abs 0.3 0.0 - 0.4 x10(3)/[facility] Basophil % 0.7 % [facility] Baso Absolute 0.0 0.0 - 0.1 x10(3)/[facility] Immature Gran % 0.20 % [facility] Comment: Immature granulocytes(IG's)percentage and absolute count will include metamyelocytes, myelocytes, and promyelocytes. Blood smears from CBCs yielding IG's will be scanned manually for concordance. If this scan disagrees with the automated IG or if promyelocytes are noted, a manual differential will be performed. Immature Gran Absolute 0.01 0.00 - 0.04 x10(3)/[facility] Blood specimen (specimen) 04/22/2018 5:34 AM EDT 04/22/2018 5:51 AM EDT Narrative Resulting Agency Comment Spec In Lab Apple Gutierrez MD HEMATOLOGY ORDERABLE S Performing Organization Address City/State/[facility] Co de Phone Number [facility] [place] [address] * (ABNORMAL) Hemogram (04/22/2018 5:34 AM EDT) White Blood Cell 5.5 4.0 - 9.5 x10(3)/[facility] Red Blood Cell 2.62(L) 4.58 - 5.54 x10(6)/ L [facility] Hemoglobin 8.0(L) 13.7 - 16.5 gm/dL [facility] Hematocrit 24.8(L) 40.5 - 48.5 % [facility] Mean Cell Volume 94.7(H) 82.9 - 93.1 fL [facility] Mean Cell Hemoglobin 30.5 27.5 - 32.1 pg [facility] Mean Cell Hemoglobin Concentration 32.3 32.0 - 35.7 gm/dL [facility] Platelet 289 145 - 357 x10(3)/[facility] RDW Standard Deviation 56.7(H) 36.0 - 45.0 fL [facility] RDW coefficient of variation 16.2(H) 11.4 - 13.8 % [facility] Mean Platelet Volume 8.6 7.6 - 12.9 fL [facility] NRBC% auto 0.0 % [facility] NRBC Absolute 0.000 0.000 - 0.000 x10(3)/mc L [facility] Blood specimen (specimen) 04/22/2018 5:34 AM EDT 04/22/2018 5:51 AM EDT Narrative Resulting Agency Comment Spec In Lab Apple Gutierrez MD HEMATOLOGY ORDERABLE S [facility] [place] [address] * (ABNORMAL) Basic Metabolic Panel (non-fasting) (04/22/2018 5:34 AM EDT) Glucose 100 65 - 199 mg/dL [facility] Comment:Diabetes: >=200 mg/d L plus symptoms Blood Urea Nitrogen 38(H) 10 - 20 mg/dL [facility] Creatinine 2.30(H) 0.80 - 1.50 mg/dL [facility] Sodium 138 135 - 145 mmol/L [facility] Potassium 5.3(H) 3.5 - 5.0 mmol/L [facility] Comment: Please note: ??Patients with WBC >100,000 may have falsely elevated Potassium levels. ??For accurate Potassium quantification in these patients send serum separator tube (gold top) for subsequent determinations. ??Contact the Clinical Chemistry Laboratory if there are any questions. Chloride 106 98 - 107 mmol/L [facility] Carbon Dioxide 19(L) 22 - 31 mmol/L [facility] Anion Gap 13 5 - 15 mmol/L [facility] Calcium 8.0(L) 8.5 - 10.5 mg/dL [facility] Est Glomerular Filtration Rate 31(L) >=60 mL/min/1. 73 m?? [facility] Comment: The eGFR was calculated using the CKD-EPI equation. As with all creatinine based estimates of kidney function, eGFR values calculated with the CKD-EPI equation are not accurate in patients with acute kidney failure, extremes of body mass or the acutely ill. [email or web address] eGFR 35(L) >=60 mL/min/1. 73 m?? [facility] Comment: The eGFR was calculated using the CKD-EPI equation. As with all creatinine based estimates of kidney function, eGFR values calculated with the CKD-EPI equation are not accurate in patients with acute kidney failure, extremes of body mass or the acutely ill. [email or web address] Blood specimen (specimen) 04/22/2018 5:34 AM EDT 04/22/2018 5:51 AM EDT Narrative Resulting Agency Comment Spec In Lab Hay Sparks MD CHEMISTRY ORDERABLES [facility] [place] [address] * Blood culture (04/21/2018 6:05 AM EDT) Blood Culture No growth at 5 days. [facility] Blood specimen (specimen) STRUCTURE OF RIGHT HAND / Unknown 04/21/2018 6:05 AM EDT 04/21/2018 8:01 AM EDT Narrative Resulting Agency Comment Spec In Lab Chase Olvera MD MICROBIOLOGY - BL OOD ORDERABLES [facility] [place] [address] * Blood culture (04/21/2018 5:50 AM EDT) Blood Culture No growth at 5 days. [facility] Blood specimen (specimen) ANTECUBITAL REGION STRUCTURE / Unknown 04/21/2018 5:50 AM EDT 04/21/2018 7:59 AM EDT Narrative Resulting Agency Comment Spec In Lab Chase Olvera MD MICROBIOLOGY - BL OOD ORDERABLES Performing Organization Address City/[facility]/[place] [address] * Differential, Automated (04/21/2018 5:50 AM EDT) Neutrophil % 66.9 % [facility] Neutrophil Absolute 3.88 1.70 - 6.10 x10(3)/[facility] Lymph % 16.8 % [facility] Lymphocytes Abs 1.0 0.9 - 3.2 x10(3)/[facility] Monocyte % 8.8 % [facility] Monocyte Abs 0.5 0.3 - 0.9 x10(3)/[facility] Eos % 5.9 % [facility] Eosinophils Abs 0.3 0.0 - 0.4 x10(3)/[facility] Basophil % 0.9 % [facility] Baso Absolute 0.0 0.0 - 0.1 x10(3)/[facility] Immature Gran % 0.70 % [facility] Comment: Immature granulocytes(IG's)percentage and absolute count will include metamyelocytes, myelocytes, and promyelocytes. Blood smears from CBCs yielding IG's will be scanned manually for concordance. If this scan disagrees with the automated IG or if promyelocytes are noted, a manual differential will be performed. Immature Gran Absolute 0.04 0.00 - 0.04 x10(3)/[facility] Blood specimen (specimen) 04/21/2018 5:50 AM EDT 04/21/2018 6:29 AM EDT Narrative Resulting Agency Comment Spec In Lab Apple Gutierrez MD HEMATOLOGY ORDERABLE S Performing Organization Address City/[facility]/ZIP Co de Phone Number [facility] [place] [address] * (ABNORMAL) Hemogram (04/21/2018 5:50 AM EDT) [facility] White Blood Cell 5.8 4.0 - 9.5 x10(3)/[facility] Red Blood Cell 2.55(L) 4.58 - 5.54 x10(6)/[facility] Hemoglobin 7.7(L) 13.7 - 16.5 gm/dL [facility] Hematocrit 24.2(L) 40.5 - 48.5 % [facility] Mean Cell Volume 94.9(H) 82.9 - 93.1 [facility] Mean Cell Hemoglobin 30.2 27.5 - 32.1 pg [facility] Mean Cell Hemoglobin Concentration 31.8(L) 32.0 - 35.7 gm/dL [facility] Platelet 316 145 - 357 x10(3)/[facility] LAB[facility] RDW Standard Deviation 56.2(H) 36.0 - 45.0 [facility] RDW coefficient of variation 16.0(H) 11.4 - 13.8 % [facility] Mean Platelet Volume 8.2 7.6 - 12.9 [facility] NRBC% auto 0.0 % [facility] NRBC Absolute 0.000 0.000 - 0.000 x10(3)/[facility] Blood specimen (specimen) 04/21/2018 5:50 AM EDT 04/21/2018 6:29 AM EDT Narrative Resulting Agency Comment Spec In Lab Apple Gutierrez MD HEMATOLOGY ORDERABLE S [facility] [place] [address] * (ABNORMAL) Basic Metabolic Panel (non-fasting) (04/21/2018 5:50 AM EDT) Glucose 97 65 - 199 mg/dL [facility] Comment:Diabetes: >=200 mg/d L plus symptoms Blood Urea Nitrogen 34(H) 10 - 20 mg/dL [facility] Creatinine 2.30(H) 0.80 - 1.50 mg/dL [facility] Sodium 138 135 - 145 mmol/L [facility] Potassium 4.8 3.5 - 5.0 mmol/L [facility] Comment: Please note: ??Patients with WBC >100,000 may have falsely elevated Potassium levels. ??For accurate Potassium quantification in these patients send serum separator tube (gold top) for subsequent determinations. ??Contact the Clinical Chemistry Laboratory if there are any questions. Chloride 105 98 - 107 mmol/L [facility] Carbon Dioxide 21(L) 22 - 31 mmol/L [facility] Anion Gap 12 5 - 15 mmol/L [facility] Calcium 8.1(L) 8.5 - 10.5 mg/dL [facility] Est Glomerular Filtration Rate 31(L) >=60 mL/min/1. 73 m?? [facility] Comment: The eGFR was calculated using the CKD-EPI equation. As with all creatinine based estimates of kidney function, eGFR values calculated with the CKD-EPI equation are not accurate in patients with acute kidney failure, extremes of body mass or the acutely ill. [email or web address] eGFR 35(L) >=60 mL/min/1. 73 m?? [facility] Comment: The eGFR was calculated using the CKD-EPI equation. As with all creatinine based estimates of kidney function, eGFR values calculated with the CKD-EPI equation are not accurate in patients with acute kidney failure, extremes of body mass or the acutely ill. [email or web address] Blood specimen (specimen) 04/21/2018 5:50 AM EDT 04/21/2018 6:29 AM EDT Narrative Resulting Agency Comment Spec In Lab Hay Sparks MD CHEMISTRY ORDERABLES [facility] [place] [address] * Differential, Automated (04/20/2018 5:48 AM EDT) Pathologist [facility] Neutrophil % 74.0 % [facility] Neutrophil Absolute 5.39 1.70 - 6.10 x10(3)/[facility] Lymph % 12.8 % [facility] Lymphocytes Abs 0.9 0.9 - 3.2 x10(3)/[facility] Monocyte % 8.2 % [facility] Monocyte Abs 0.6 0.3 - 0.9 x10(3)/[facility] Eos % 4.0 % [facility] Eosinophils Abs 0.3 0.0 - 0.4 x10(3)/[facility] Basophil % 0.5 % [facility] Baso Absolute 0.0 0.0 - 0.1 x10(3)/[facility] Immature Gran % 0.50 % [facility] Comment: Immature granulocytes(IG's)percentage and absolute count will include metamyelocytes, myelocytes, and promyelocytes. Blood smears from CBCs yielding IG's will be scanned manually for concordance. If this scan disagrees with the automated IG or if promyelocytes are noted, a manual differential will be performed. Immature Gran Absolute 0.04 0.00 - 0.04 x10(3)/[facility] Blood specimen (specimen) 04/20/2018 5:48 AM EDT 04/20/2018 6:06 AM EDT Narrative Resulting Agency Comment Spec In Lab Apple Gutierrez MD HEMATOLOGY ORDERABLE S [facility] [place] [address] * (ABNORMAL) Hemogram (04/20/2018 5:48 AM EDT) [facility] White Blood Cell 7.3 4.0 - 9.5 x10(3)/mc L [facility] Red Blood Cell 2.53(L) 4.58 - 5.54 x10(6)/mc L [facility] Hemoglobin 7.8(L) 13.7 - 16.5 gm/dL [facility] Hematocrit 23.7(L) 40.5 - 48.5 % [facility] Mean Cell Volume 93.7(H) 82.9 - 93.1 fL [facility] Mean Cell Hemoglobin 30.8 27.5 - 32.1 pg [facility] Mean Cell Hemoglobin Concentration 32.9 32.0 - 35.7 gm/dL [facility] Platelet 302 145 - 357 x10(3)/[facility] LAB[facility] RDW Standard Deviation 54.4(H) 36.0 - 45.0 [facility] RDW coefficient of variation 15.9(H) 11.4 - 13.8 % [facility] Mean Platelet Volume 8.5 7.6 - 12.9 [facility] NRBC% auto 0.0 % [facility] NRBC Absolute 0.000 0.000 - 0.000 x10(3)/[facility] Blood specimen (specimen) 04/20/2018 5:48 AM EDT 04/20/2018 6:06 AM EDT Narrative Resulting Agency Comment Spec In Lab Apple Gutierrez MD HEMATOLOGY ORDERABLE S [facility] [place] [address] * APTT (04/20/2018 5:48 AM EDT) Partial Thromboplastin Time 27 25 - 37 sec [facility] Comment: The PTT is NOT appropriate for heparin monitoring. Use the Anti-Xa level for heparin monitoring (HEP UFH) or LMWH monitoring (HEP LMW). A PTT less than 37 seconds generally indicates adequate hemostasis. Blood specimen (specimen) 04/20/2018 5:48 AM EDT 04/20/2018 6:06 AM EDT Narrative Resulting Agency Comment Spec In Lab Chase Olvera MD HEMATOLOGY ORDERA BLES Performing Organization Address [facility] de Phone Number [facility] [place] [address] * Prothrombin Time (04/20/2018 5:48 AM EDT) Prothrombin Time 11.6 9.4 - 12.5 sec [facility] International Normalization Ratio 1.0 [facility] Comment: An INR <2.0 indicates [...] MD HEMATOLOGY ORDERA BLES Performing Organization Address [facility] de Phone Number [facility] [place] [address] * (ABNORMAL) Basic Metabolic Panel (non-fasting) (04/20/2018 5:48 AM EDT) Glucose 103 65 - 199 mg/dL [facility] Comment:Diabetes: >=200 mg/d L plus symptoms Blood Urea Nitrogen 33(H) 10 - 20 mg/dL [facility] Creatinine 2.38(H) 0.80 - 1.50 mg/dL [facility] Sodium 138 135 - 145 mmol/L [facility] Potassium 4.7 3.5 - 5.0 mmol/L [facility] Comment: Please note: ??Patients with WBC >100,000 may have falsely elevated Potassium levels. ??For accurate Potassium quantification in these patients send serum separator tube (gold top) for subsequent determinations. ??Contact the Clinical Chemistry Laboratory if there are any questions. Chloride 104 98 - 107 mmol/L [facility] Carbon Dioxide 21(L) 22 - 31 mmol/L [facility] Anion Gap 13 5 - 15 mmol/L [facility] Calcium 8.0(L) 8.5 - 10.5 mg/dL [facility] Est Glomerular Filtration Rate 29(L) >=60 mL/min/1. 73 m?? [facility] Comment: The eGFR was calculated using the CKD-EPI equation. As with all creatinine based estimates of kidney function, eGFR values calculated with the CKD-EPI equation are not accurate in patients with acute kidney failure, extremes of body mass or the acutely ill. [email or web address] eGFR 34(L) >=60 mL/min/1. 73 m?? [facility] Comment: The eGFR was calculated using the CKD-EPI equation. As with all creatinine based estimates of kidney function, eGFR values calculated with the CKD-EPI equation are not accurate in patients with acute kidney failure, extremes of body mass or the acutely ill. [email or web address] Blood specimen (specimen) 04/20/2018 5:48 AM EDT 04/20/2018 6:06 AM EDT Narrative Resulting Agency Comment Spec In Lab Hay Sparks MD CHEMISTRY ORDERABLES [facility] [place] [address] * Anaerobic Culture (04/19/2018 9:25 AM EDT) Anaerobic Culture No anaerobic organisms isolated [facility] Skin (tissue) specimen (specimen) 04/19/2018 9:25 AM EDT 04/19/2018 9:37 AM EDT Comment:LEFT ARM SNUFFBOX PS EUDOANEURYSM FOR AEROBIC, ANAEROBIC, GRAM STAIN Narrative Resulting Agency Comment Spec In Lab Odalis Elias MD MICROBIOLOGY - GENERAL ORDERABLES Performing Organization Address City/[facility]/ZIP Co de Phone Number [facility] [place] [address] * (ABNORMAL) Tissue culture (04/19/2018 9:25 AM EDT) Pathologist [facility] Tissue Culture Rare Corynebacterium species : possible contaminant(A) [facility] Gram Stain Many Neutrophils seen Rare Gram Negative Rods seen (A) [facility] Organism Gram Negative Rods(A) [facility] Skin (tissue) specimen (specimen) 04/19/2018 9:25 AM EDT 04/19/2018 9:37 AM EDT Comment:LEFT ARM SNUFFBOX PS EUDOANEURYSM FOR AEROBIC, ANAEROBIC, GRAM STAIN Narrative Resulting Agency Comment Spec In Lab Odalis Elias MD MICROBIOLOGY - GENERAL ORDERABLES Performing Organization Address City/[facility] Co de Phone Number [facility] [place] [address] * Differential, Automated (04/19/2018 6:25 AM EDT) Neutrophil % 68.5 % [facility] Neutrophil Absolute 3.75 1.70 - 6.10 x10(3)/[facility] Lymph % 17.3 % [facility] Lymphocytes Abs 1.0 0.9 - 3.2 x10(3)/[facility] Monocyte % 9.3 % [facility] Monocyte Abs 0.5 0.3 - 0.9 x10(3)/[facility] Eos % 4.0 % [facility] Eosinophils Abs 0.2 0.0 - 0.4 x10(3)/[facility] Basophil % 0.7 % [facility] Baso Absolute 0.0 0.0 - 0.1 x10(3)/[facility] Immature Gran % 0.20 % [facility] Comment: Immature granulocytes(IG's)percentage and absolute count will include metamyelocytes, myelocytes, and promyelocytes. Blood smears from CBCs yielding IG's will be scanned manually for concordance. If this scan disagrees with the automated IG or if promyelocytes are noted, a manual differential will be performed. Immature Gran Absolute 0.01 0.00 - 0.04 x10(3)/[facility] Blood specimen (specimen) 04/19/2018 6:25 AM EDT 04/19/2018 6:32 AM EDT Narrative Resulting Agency Comment Spec In Lab Apple Gutierrez MD HEMATOLOGY ORDERABLE S [facility] [place] [address] * (ABNORMAL) Hemogram (04/19/2018 6:25 AM EDT) White Blood Cell 5.5 4.0 - 9.5 x10(3)/[facility] Red Blood Cell 2.52(L) 4.58 - 5.54 x10(6)/mc L [facility] Hemoglobin 7.7(L) 13.7 - 16.5 gm/dL [facility] Hematocrit 23.3(L) 40.5 - 48.5 % [facility] Mean Cell Volume 92.5 82.9 - 93.1 fL [facility] Mean Cell Hemoglobin 30.6 27.5 - 32.1 pg [facility] Mean Cell Hemoglobin Concentration 33.0 32.0 - 35.7 gm/dL [facility] Platelet 274 145 - 357 x10(3)/ L [facility] RDW Standard Deviation 53.1(H) 36.0 - 45.0 fL [facility] RDW coefficient of variation 15.6(H) 11.4 - 13.8 % [facility] Mean Platelet Volume 8.3 7.6 - 12.9 fL [facility] NRBC% auto 0.0 % [facility] NRBC Absolute 0.000 0.000 - 0.000 x10(3)/mc L [facility] Blood specimen (specimen) 04/19/2018 6:25 AM EDT 04/19/2018 6:32 AM EDT Narrative Resulting Agency Comment Spec In Lab Apple Gutierrez MD HEMATOLOGY ORDERABLE S Performing Organization Address [facility] Co de Phone Number [facility] [place] [address] * APTT (04/19/2018 6:25 AM EDT) Partial Thromboplastin Time 27 25 - 37 sec [facility] Comment: The PTT is NOT appropriate for heparin monitoring. Use the Anti-Xa level for heparin monitoring (HEP UFH) or LMWH monitoring (HEP LMW). A PTT less than 37 seconds generally indicates adequate hemostasis. Blood specimen (specimen) 04/19/2018 6:25 AM EDT 04/19/2018 6:32 AM EDT Narrative Resulting Agency Comment Spec In Lab Chase Olvera MD HEMATOLOGY ORDERA BLES Performing Organization Address [facility] Co de Phone Number [facility] [place] [address] * Prothrombin Time (04/19/2018 6:25 AM EDT) Prothrombin Time 11.5 9.4 - 12.5 sec [facility] International Normalization Ratio 1.0 [facility] Comment: An INR <2.0 indicates [...] Lab Chase Olvera MD HEMATOLOGY ORDERA BLES [facility] [place] [address] * (ABNORMAL) Basic Metabolic Panel (non-fasting) (04/19/2018 6:25 AM EDT) Glucose 100 65 - 199 mg/dL [facility] Comment:Diabetes: >=200 mg/d L plus symptoms Blood Urea Nitrogen 35(H) 10 - 20 mg/dL [facility] Creatinine 2.12(H) 0.80 - 1.50 mg/dL [facility] Sodium 137 135 - 145 mmol/L [facility] Potassium 4.7 3.5 - 5.0 mmol/L [facility] Comment: Please note: ??Patients with WBC >100,000 may have falsely elevated Potassium levels. ??For accurate Potassium quantification in these patients send serum separator tube (gold top) for subsequent determinations. ??Contact the Clinical Chemistry Laboratory if there are any questions. Chloride 104 98 - 107 mmol/L [facility] Carbon Dioxide 21(L) 22 - 31 mmol/L [facility] Anion Gap 12 5 - 15 mmol/L [facility] Calcium 8.0(L) 8.5 - 10.5 mg/dL [facility] Est Glomerular Filtration Rate 34(L) >=60 mL/min/1. 73 m?? [facility] Comment: The eGFR was calculated using the CKD-EPI equation. As with all creatinine based estimates of kidney function, eGFR values calculated with the CKD-EPI equation are not accurate in patients with acute kidney failure, extremes of body mass or the acutely ill. [email or web address] eGFR 39(L) >=60 mL/min/1. 73 m?? [facility] Comment: The eGFR was calculated using the CKD-EPI equation. As with all creatinine based estimates of kidney function, eGFR values calculated with the CKD-EPI equation are not accurate in patients with acute kidney failure, extremes of body mass or the acutely ill. [email or web address] Blood specimen (specimen) 04/19/2018 6:25 AM EDT 04/19/2018 6:32 AM EDT Narrative Resulting Agency Comment Spec In Lab Hay Sparks MD CHEMISTRY ORDERABLES Performing Organization Address [facility] de Phone Number [facility] [place] [address] * Tacrolimus level (04/19/2018 6:25 AM EDT) Tacrolimus 2.8 ng/mL [facility] Comment: Trough therapeutic: ??5-15 ng/mL Performed by ultra-performance liquid chromatography tandem mass spectrometry (UPLCMS/MS). This test was developed and its performance characteristics determined by [facility]. It has not been cleared or [...] MD CHEMISTRY ORDERAB LES Performing Organization Address [facility] Co de Phone Number [facility] [place] [address] * AVF/Established Access Evaluation (04/18/2018 1:29 PM EDT) VB Text Report Department: Vascular Surgery Lab Patient: [id number] (CHRISTY AMBROSE) CPT: 75248 ICD10: N18.6;R57.8 Referring Physician: CHASE OLVERA ?? [...] 5:26 AM EDT) Neutrophil % 67.3 % [facility] Neutrophil Absolute 4.29 1.70 - 6.10 x10(3)/[facility] Lymph % 19.6 % [facility] Lymphocytes Abs 1.2 0.9 - 3.2 x10(3)/[facility] Monocyte % 8.2 % [facility] Monocyte Abs 0.5 0.3 - 0.9 x10(3)/[facility] Eos % 3.9 % [facility] Eosinophils Abs 0.2 0.0 - 0.4 x10(3)/[facility] Basophil % 0.5 % [facility] Baso Absolute 0.0 0.0 - 0.1 x10(3)/[facility] Immature Gran % 0.50 % [facility] Comment: Immature granulocytes(IG's)percentage and absolute count will include metamyelocytes, myelocytes, and promyelocytes. Blood smears from CBCs yielding IG's will be scanned manually for concordance. If this scan disagrees with the automated IG or if promyelocytes are noted, a manual differential will be performed. Immature Gran Absolute 0.03 0.00 - 0.04 x10(3)/[facility] Blood specimen (specimen) 04/18/2018 5:26 AM EDT 04/18/2018 5:39 AM EDT Narrative Resulting Agency Comment Spec In Lab Apple Gutierrez MD HEMATOLOGY ORDERABLE S [facility] [place] [address] * (ABNORMAL) Hemogram (04/18/2018 5:26 AM EDT) White Blood Cell 6.4 4.0 - 9.5 x10(3)/mc L [facility] Red Blood Cell 2.65(L) 4.58 - 5.54 x10(6)/mc L [facility] Hemoglobin 8.0(L) 13.7 - 16.5 gm/dL [facility] Hematocrit 24.6(L) 40.5 - 48.5 % [facility] Mean Cell Volume 92.8 82.9 - 93.1 fL [facility] Mean Cell Hemoglobin 30.2 27.5 - 32.1 pg [facility] Mean Cell Hemoglobin Concentration 32.5 32.0 - 35.7 gm/dL [facility] Platelet 305 145 - 357 x10(3)/mc L [facility] RDW Standard Deviation 53.2(H) 36.0 - 45.0 fL [facility] RDW coefficient of variation 15.7(H) 11.4 - 13.8 % [facility] Mean Platelet Volume 8.3 7.6 - 12.9 [facility] NRBC% auto 0.0 % [facility] NRBC Absolute 0.000 0.000 - 0.000 x10(3)/mc L [facility] Blood specimen (specimen) 04/18/2018 5:26 AM EDT 04/18/2018 5:39 AM EDT Narrative Resulting Agency Comment Spec In Lab Apple Gutierrez MD HEMATOLOGY ORDERABLE S Performing Organization Address [facility] Co de Phone Number [facility] [place] [address] * APTT (04/18/2018 5:26 AM EDT) Partial Thromboplastin Time 27 25 - 37 sec [facility] Comment: The PTT is NOT appropriate for heparin monitoring. Use the Anti-Xa level for heparin monitoring (HEP UFH) or LMWH monitoring (HEP LMW). A PTT less than 37 seconds generally indicates adequate hemostasis. Blood specimen (specimen) 04/18/2018 5:26 AM EDT 04/18/2018 5:39 AM EDT Narrative Resulting Agency Comment Spec In Lab Chase Olvera MD HEMATOLOGY ORDERA BLES Performing Organization Address [facility]/ZIP Co de Phone Number [facility] [place] [address] * Prothrombin Time (04/18/2018 5:26 AM EDT) Prothrombin Time 11.2 9.4 - 12.5 sec [facility] International Normalization Ratio 1.0 [facility] Comment: An INR <2.0 indicates [...] Lab Chase Olvera MD HEMATOLOGY ORDERA BLES [facility] [place] [address] * (ABNORMAL) Basic Metabolic Panel (non-fasting) (04/18/2018 5:26 AM EDT) Glucose 103 65 - 199 mg/dL [facility] Comment:Diabetes: >=200 mg/d L plus symptoms Blood Urea Nitrogen 36(H) 10 - 20 mg/dL [facility] Creatinine 2.30(H) 0.80 - 1.50 mg/dL [facility] Sodium 135 135 - 145 mmol/L [facility] Potassium 4.3 3.5 - 5.0 mmol/L [facility] Comment: Please note: ??Patients with WBC >100,000 may have falsely elevated Potassium levels. ??For accurate Potassium quantification in these patients send serum separator tube (gold top) for subsequent determinations. ??Contact the Clinical Chemistry Laboratory if there are any questions. Chloride 104 98 - 107 mmol/L [facility] Carbon Dioxide 20(L) 22 - 31 mmol/L [facility] Anion Gap 11 5 - 15 mmol/L [facility] Calcium 8.3(L) 8.5 - 10.5 mg/dL [facility] Est Glomerular Filtration Rate 31(L) >=60 mL/min/1. 73 m?? [facility] Comment: The eGFR was calculated using the CKD-EPI equation. As with all creatinine based estimates of kidney function, eGFR values calculated with the CKD-EPI equation are not accurate in patients with acute kidney failure, extremes of body mass or the acutely ill. [email or web address] eGFR 35(L) >=60 mL/min/1. 73 m?? [facility] Comment: The eGFR was calculated using the CKD-EPI equation. As with all creatinine based estimates of kidney function, eGFR values calculated with the CKD-EPI equation are not accurate in patients with acute kidney failure, extremes of body mass or the acutely ill. [email or web address] Blood specimen (specimen) 04/18/2018 5:26 AM EDT 04/18/2018 5:39 AM EDT Narrative Resulting Agency Comment Spec In Lab Hay Sparks MD CHEMISTRY ORDERABLES Performing Organization Address [facility] Co de Phone Number [facility] [place] [address] * ABORH Recheck Status (04/17/2018 9:07 AM EDT) ABORH Type Recheck Completed [facility] Blood specimen (specimen) 04/17/2018 9:07 AM EDT 04/17/2018 9:22 AM EDT Narrative Resulting Agency Comment Spec In Lab Tim Ogden MD BLOOD BANK LAB ORDE ABDIAS Performing Organization Address [facility] Co de Phone Number [facility] [place] [address] * Antibody screen (04/17/2018 9:07 AM EDT) Ab Screen Interp Negative [facility] Expires at [id number] on: 04/20/2018 [facility] Blood specimen (specimen) 04/17/2018 9:07 AM EDT 04/17/2018 9:22 AM EDT Narrative Resulting Agency Comment Spec In Lab Tim Ogden MD BLOOD BANK LAB ORDE ABDIAS [facility] [place] [address] * ABO/Rh Typing (04/17/2018 9:07 AM EDT) Pathologist [facility] ABORH Type A Pos [facility] Blood specimen (specimen) 04/17/2018 9:07 AM EDT 04/17/2018 9:22 AM EDT Narrative Resulting Agency Comment Spec In Lab Tim Ogden MD BLOOD BANK LAB RYAN CALERO Performing Organization Address City/[facility]/ZIP Co de Phone Number [facility] [place] [address] * Differential, Automated (04/17/2018 4:43 AM EDT) Pathologist [facility] Neutrophil % 64.8 % [facility] Neutrophil Absolute 3.62 1.70 - 6.10 x10(3)/[facility] LABORATORY Lymph % 18.6 % [facility] Lymphocytes Abs 1.0 0.9 - 3.2 x10(3)/[facility] Monocyte % 10.0 % [facility] Monocyte Abs 0.6 0.3 - 0.9 x10(3)/[facility] Eos % 5.0 % [facility] Eosinophils Abs 0.3 0.0 - 0.4 x10(3)/[facility] Basophil % 0.9 % [facility] Baso Absolute 0.0 0.0 - 0.1 x10(3)/[facility] Immature Gran % 0.70 % [facility] Comment: Immature granulocytes(IG's)percentage and absolute count will include metamyelocytes, myelocytes, and promyelocytes. Blood smears from CBCs yielding IG's will be scanned manually for concordance. If this scan disagrees with the automated IG or if promyelocytes are noted, a manual differential will be performed. Immature Gran Absolute 0.04 0.00 - 0.04 x10(3)/[facility] Blood specimen (specimen) 04/17/2018 4:43 AM EDT 04/17/2018 5:09 AM EDT Narrative Resulting Agency Comment Spec In Lab Apple Gutierrez MD HEMATOLOGY ORDERABLE S [facility] [place] [address] * (ABNORMAL) Hemogram (04/17/2018 4:43 AM EDT) White Blood Cell 5.6 4.0 - 9.5 x10(3)/[facility] LABORATORY Red Blood Cell 2.47(L) 4.58 - 5.54 x10(6)/[facility] LABORATORY Hemoglobin 7.5(L) 13.7 - 16.5 gm/dL [facility] Hematocrit 22.9(L) 40.5 - 48.5 % [facility] Mean Cell Volume 92.7 82.9 - 93.1 [facility] Mean Cell Hemoglobin 30.4 27.5 - 32.1 pg [facility] Mean Cell Hemoglobin Concentration 32.8 32.0 - 35.7 gm/dL [facility] Platelet 282 145 - 357 x10(3)/[facility] LABORATORY RDW Standard Deviation 53.0(H) 36.0 - 45.0 [facility] RDW coefficient of variation 15.6(H) 11.4 - 13.8 % [facility] Mean Platelet Volume 8.3 7.6 - 12.9 [facility] NRBC% auto 0.0 % [facility] NRBC Absolute 0.000 0.000 - 0.000 x10(3)/[facility] LABOR[facility]ORY Blood specimen (specimen) 04/17/2018 4:43 AM EDT 04/17/2018 5:09 AM EDT Narrative Resulting Agency Comment Spec In Lab Apple Gutierrez MD HEMATOLOGY ORDERABLE S Performing Organization Address [facility] Co de Phone Number [facility] [place] [address] * APTT (04/17/2018 4:43 AM EDT) Partial Thromboplastin Time 27 25 - 37 sec [facility] Comment: The PTT is NOT appropriate for heparin monitoring. Use the Anti-Xa level for heparin monitoring (HEP UFH) or LMWH monitoring (HEP LMW). A PTT less than 37 seconds generally indicates adequate hemostasis. Blood specimen (specimen) 04/17/2018 4:43 AM EDT 04/17/2018 5:09 AM EDT Narrative Resulting Agency Comment Spec In Lab Chase Olvera MD HEMATOLOGY ORDERA BLES Performing Organization Address [facility] de Phone Number [facility] [place] [address] * Prothrombin Time (04/17/2018 4:43 AM EDT) Prothrombin Time 11.7 9.4 - 12.5 sec [facility] International Normalization Ratio 1.0 [facility] Comment: An INR <2.0 indicates [...] MD HEMATOLOGY ORDERA BLES Performing Organization Address [facility] Co de Phone Number [facility] [place] [address] * (ABNORMAL) Basic Metabolic Panel (non-fasting) (04/17/2018 4:43 AM EDT) Glucose 100 65 - 199 mg/dL [facility] Comment:Diabetes: >=200 mg/d L plus symptoms Blood Urea Nitrogen 32(H) 10 - 20 mg/dL [facility] Creatinine 2.27(H) 0.80 - 1.50 mg/dL [facility] Sodium 135 135 - 145 mmol/L [facility] Potassium 4.1 3.5 - 5.0 mmol/L [facility] Comment: Please note: ??Patients with WBC >100,000 may have falsely elevated Potassium levels. ??For accurate Potassium quantification in these patients send serum separator tube (gold top) for subsequent determinations. ??Contact the Clinical Chemistry Laboratory if there are any questions. Chloride 104 98 - 107 mmol/L [facility] Carbon Dioxide 19(L) 22 - 31 mmol/L [facility] Anion Gap 12 5 - 15 mmol/L [facility] Calcium 7.7(L) 8.5 - 10.5 mg/dL [facility] Est Glomerular Filtration Rate 31(L) >=60 mL/min/1. 73 m?? [facility] Comment: The eGFR was calculated using the CKD-EPI equation. As with all creatinine based estimates of kidney function, eGFR values calculated with the CKD-EPI equation are not accurate in patients with acute kidney failure, extremes of body mass or the acutely ill. [email or web address] eGFR 36(L) >=60 mL/min/1. 73 m?? [facility] Comment: The eGFR was calculated using the CKD-EPI equation. As with all creatinine based estimates of kidney function, eGFR values calculated with the CKD-EPI equation are not accurate in patients with acute kidney failure, extremes of body mass or the acutely ill. [email or web address] Blood specimen (specimen) 04/17/2018 4:43 AM EDT 04/17/2018 5:09 AM EDT Narrative Resulting Agency Comment Spec In Lab Hay Sparks MD CHEMISTRY ORDERABLES Performing Organization Address City/[facility]/[place] [address] * (ABNORMAL) Differential, Automated (04/16/2018 4:17 AM EDT) Neutrophil % 59.4 % [facility] Neutrophil Absolute 3.07 1.70 - 6.10 x10(3)/[facility] LABORATORY Lymph % 24.4 % [facility] Lymphocytes Abs 1.3 0.9 - 3.2 x10(3)/[facility] LABORATORY Monocyte % 10.3 % [facility] Monocyte Abs 0.5 0.3 - 0.9 x10(3)/[facility] LABORATORY Eos % 4.5 % [facility] Eosinophils Abs 0.2 0.0 - 0.4 x10(3)/[facility] LABORATORY Basophil % 0.4 % [facility] Baso Absolute 0.0 0.0 - 0.1 x10(3)/[facility] LABORATORY Immature Gran % 1.00 % [facility] Comment: Immature granulocytes(IG's)percentage and absolute count will include metamyelocytes, myelocytes, and promyelocytes. Blood smears from CBCs yielding IG's will be scanned manually for concordance. If this scan disagrees with the automated IG or if promyelocytes are noted, a manual differential will be performed. Immature Gran Absolute 0.05(H) 0.00 - 0.04 x10(3)/ L [facility] Blood specimen (specimen) 04/16/2018 4:17 AM EDT 04/16/2018 4:52 AM EDT Narrative Resulting Agency Comment Spec In Lab Apple Gutierrez MD HEMATOLOGY ORDERABLE S Performing Organization Address City/[facility]/[place] [address] * (ABNORMAL) Hemogram (04/16/2018 4:17 AM EDT) White Blood Cell 5.2 4.0 - 9.5 x10(3)/[facility] LABORATORY Red Blood Cell 2.62(L) 4.58 - 5.54 x10(6)/[facility] LABORATORY Hemoglobin 7.9(L) 13.7 - 16.5 gm/dL [facility] Hematocrit 24.9(L) 40.5 - 48.5 % [facility] Mean Cell Volume 95.0(H) 82.9 - 93.1 [facility] Mean Cell Hemoglobin 30.2 27.5 - 32.1 pg [facility] Mean Cell Hemoglobin Concentration 31.7(L) 32.0 - 35.7 gm/dL [facility] Platelet 288 145 - 357 x10(3)/[facility] LABORATORY RDW Standard Deviation 52.6(H) 36.0 - 45.0 [facility] LAB[facility]ORY RDW coefficient of variation 15.4(H) 11.4 - 13.8 % [facility] Mean Platelet Volume 8.5 7.6 - 12.9 [facility] LAB[facility]ORY NRBC% auto 0.0 % [facility] NRBC Absolute 0.000 0.000 - 0.000 x10(3)/[facility] LABOR[facility]ORY Blood specimen (specimen) 04/16/2018 4:17 AM EDT 04/16/2018 4:52 AM EDT Narrative Resulting Agency Comment Spec In Lab Apple Gutierrez MD HEMATOLOGY ORDERABLE S [facility] [place] [address] * APTT (04/16/2018 4:17 AM EDT) Partial Thromboplastin Time 27 25 - 37 sec [facility] Comment: The PTT is NOT appropriate for heparin monitoring. Use the Anti-Xa level for heparin monitoring (HEP UFH) or LMWH monitoring (HEP LMW). A PTT less than 37 seconds generally indicates adequate hemostasis. Blood specimen (specimen) 04/16/2018 4:17 AM EDT 04/16/2018 4:52 AM EDT Narrative Resulting Agency Comment Spec In Lab Chase Olvera MD HEMATOLOGY ORDERA BLES Performing Organization Address [facility] de Phone Number [facility] [place] [address] * Prothrombin Time (04/16/2018 4:17 AM EDT) Prothrombin Time 11.5 9.4 - 12.5 sec [facility] International Normalization Ratio 1.0 [facility] Comment: An INR <2.0 indicates [...] MD HEMATOLOGY ORDERA BLES Performing Organization Address [facility] Co de Phone Number [facility] [place] [address] * (ABNORMAL) Basic Metabolic Panel (non-fasting) (04/16/2018 4:17 AM EDT) Glucose 108 65 - 199 mg/dL [facility] Comment:Diabetes: >=200 mg/d L plus symptoms Blood Urea Nitrogen 31(H) 10 - 20 mg/dL [facility] Creatinine 2.27(H) 0.80 - 1.50 mg/dL [facility] Sodium 135 135 - 145 mmol/L [facility] Potassium 4.0 3.5 - 5.0 mmol/L [facility] Comment: Please note: ??Patients with WBC >100,000 may have falsely elevated Potassium levels. ??For accurate Potassium quantification in these patients send serum separator tube (gold top) for subsequent determinations. ??Contact the Clinical Chemistry Laboratory if there are any questions. Chloride 103 98 - 107 mmol/L [facility] Carbon Dioxide 20(L) 22 - 31 mmol/L [facility] Anion Gap 12 5 - 15 mmol/L [facility] Calcium 7.7(L) 8.5 - 10.5 mg/dL [facility] Est Glomerular Filtration Rate 31(L) >=60 mL/min/1. 73 m?? [facility] Comment: The eGFR was calculated using the CKD-EPI equation. As with all creatinine based estimates of kidney function, eGFR values calculated with the CKD-EPI equation are not accurate in patients with acute kidney failure, extremes of body mass or the acutely ill. [email or web address] eGFR 36(L) >=60 mL/min/1. 73 m?? [facility] Comment: The eGFR was calculated using the CKD-EPI equation. As with all creatinine based estimates of kidney function, eGFR values calculated with the CKD-EPI equation are not accurate in patients with acute kidney failure, extremes of body mass or the acutely ill. [email or web address] Blood specimen (specimen) 04/16/2018 4:17 AM EDT 04/16/2018 4:52 AM EDT Narrative Resulting Agency Comment Spec In Lab Hay Sparks MD CHEMISTRY ORDERABLES [facility] [place] [address] * APTT (04/15/2018 4:57 AM EDT) Partial Thromboplastin Time 27 25 - 37 sec [facility] Comment: The PTT is NOT appropriate for heparin monitoring. Use the Anti-Xa level for heparin monitoring (HEP UFH) or LMWH monitoring (HEP LMW). A PTT less than 37 seconds generally indicates adequate hemostasis. Blood specimen (specimen) 04/15/2018 4:57 AM EDT 04/15/2018 5:23 AM EDT Narrative Resulting Agency Comment Spec In Lab Chase Olvera MD HEMATOLOGY ORDERA BLES Performing Organization Address [facility] de Phone Number [facility] [place] [address] * (ABNORMAL) Prothrombin Time (04/15/2018 4:57 AM EDT) Prothrombin Time 12.9(H) 9.4 - 12.5 sec [facility] International Normalization Ratio 1.2 [facility] Comment: An INR <2.0 indicates [...] MD HEMATOLOGY ORDERA BLES Performing Organization Address [facility] Co de Phone Number [facility] [place] [address] * Differential, Automated (04/15/2018 4:47 AM EDT) Neutrophil % 59.8 % [facility] Neutrophil Absolute 2.98 1.70 - 6.10 x10(3)/[facility] LABORATORY Lymph % 22.4 % [facility] Lymphocytes Abs 1.1 0.9 - 3.2 x10(3)/[facility]ORY Monocyte % 11.2 % [facility] Monocyte Abs 0.6 0.3 - 0.9 x10(3)/[facility] Eos % 5.6 % [facility] Eosinophils Abs 0.3 0.0 - 0.4 x10(3)/[facility] Basophil % 0.4 % [facility] Baso Absolute 0.0 0.0 - 0.1 x10(3)/[facility] Immature Gran % 0.60 % [facility] Comment: Immature granulocytes(IG's)percentage and absolute count will include metamyelocytes, myelocytes, and promyelocytes. Blood smears from CBCs yielding IG's will be scanned manually for concordance. If this scan disagrees with the automated IG or if promyelocytes are noted, a manual differential will be performed. Immature Gran Absolute 0.03 0.00 - 0.04 x10(3)/[facility] LAB[facility]ORY Blood specimen (specimen) 04/15/2018 4:47 AM EDT 04/15/2018 4:56 AM EDT Narrative Resulting Agency Comment Spec In Lab Apple Gutierrez MD HEMATOLOGY ORDERABLE S [facility] [place] [address] * (ABNORMAL) Hemogram (04/15/2018 4:47 AM EDT) White Blood Cell 5.0 4.0 - 9.5 x10(3)/mc L [facility] Red Blood Cell 2.48(L) 4.58 - 5.54 x10(6)/mc L [facility] Hemoglobin 7.5(L) 13.7 - 16.5 gm/dL [facility] Hematocrit 23.3(L) 40.5 - 48.5 % [facility] Mean Cell Volume 94.0(H) 82.9 - 93.1 fL [facility] Mean Cell Hemoglobin 30.2 27.5 - 32.1 pg [facility] Mean Cell Hemoglobin Concentration 32.2 32.0 - 35.7 gm/dL [facility] Platelet 224 145 - 357 x10(3)/mc L [facility] RDW Standard Deviation 52.9(H) 36.0 - 45.0 fL [facility] RDW coefficient of variation 15.4(H) 11.4 - 13.8 % [facility] Mean Platelet Volume 8.3 7.6 - 12.9 fL [facility] NRBC% auto 0.0 % [facility] NRBC Absolute 0.000 0.000 - 0.000 x10(3)/mc L [facility] Blood specimen (specimen) 04/15/2018 4:47 AM EDT 04/15/2018 4:56 AM EDT Narrative Resulting Agency Comment Spec In Lab Apple Gutierrez MD HEMATOLOGY ORDERABLE S [facility] [place] [id number] * (ABNORMAL) Basic Metabolic Panel (non-fasting) (04/15/2018 4:47 AM EDT) Glucose 105 65 - 199 mg/dL [facility] Comment:Diabetes: >=200 mg/d L plus symptoms Blood Urea Nitrogen 30(H) 10 - 20 mg/dL [facility] Creatinine 2.17(H) 0.80 - 1.50 mg/dL [facility] Sodium 138 135 - 145 mmol/L [facility] Potassium 4.6 3.5 - 5.0 mmol/L [facility] Comment: Please note: ??Patients with WBC >100,000 may have falsely elevated Potassium levels. ??For accurate Potassium quantification in these patients send serum separator tube (gold top) for subsequent determinations. ??Contact the Clinical Chemistry Laboratory if there are any questions. Chloride 105 98 - 107 mmol/L [facility] Carbon Dioxide 20(L) 22 - 31 mmol/L [facility] Anion Gap 13 5 - 15 mmol/L [facility] Calcium 7.6(L) 8.5 - 10.5 mg/dL [facility] Est Glomerular Filtration Rate 33(L) >=60 mL/min/1. 73 m?? [facility] Comment: The eGFR was calculated using the CKD-EPI equation. As with all creatinine based estimates of kidney function, eGFR values calculated with the CKD-EPI equation are not accurate in patients with acute kidney failure, extremes of body mass or the acutely ill. [email or web address] eGFR 38(L) >=60 mL/min/1. 73 m?? [facility] Comment: The eGFR was calculated using the CKD-EPI equation. As with all creatinine based estimates of kidney function, eGFR values calculated with the CKD-EPI equation are not accurate in patients with acute kidney failure, extremes of body mass or the acutely ill. [email or web address] Blood specimen (specimen) 04/15/2018 4:47 AM EDT 04/15/2018 4:56 AM EDT Narrative Resulting Agency Comment Spec In Lab Hay Sparks MD CHEMISTRY ORDERABLES [facility] [place] [address] * (ABNORMAL) Differential, Automated (04/14/2018 5:48 AM EDT) Neutrophil % 68.9 % [facility] Neutrophil Absolute 3.74 1.70 - 6.10 x10(3)/mc L [facility] Lymph % 15.7 % [facility] Lymphocytes Abs 0.8(L) 0.9 - 3.2 x10(3)/mc L [facility] Monocyte % 11.1 % [facility] Monocyte Abs 0.6 0.3 - 0.9 x10(3)/mc L [facility] Eos % 3.7 % [facility] Eosinophils Abs 0.2 0.0 - 0.4 x10(3)/[facility] LABORATORY Basophil % 0.2 % [facility] Baso Absolute 0.0 0.0 - 0.1 x10(3)/[facility] LABORATORY Immature Gran % 0.40 % [facility] Comment: Immature granulocytes(IG's)percentage and absolute count will include metamyelocytes, myelocytes, and promyelocytes. Blood smears from CBCs yielding IG's will be scanned manually for concordance. If this scan disagrees with the automated IG or if promyelocytes are noted, a manual differential will be performed. Immature Gran Absolute 0.02 0.00 - 0.04 x10(3)/[facility] LABOR[facility]ORY Blood specimen (specimen) 04/14/2018 5:48 AM EDT 04/14/2018 5:59 AM EDT Narrative Resulting Agency Comment Spec In Lab Apple Gutierrez MD HEMATOLOGY ORDERABLE S [facility] [place] [address] * (ABNORMAL) Hemogram (04/14/2018 5:48 AM EDT) White Blood Cell 5.4 4.0 - 9.5 x10(3)/[facility] LABOR[facility] Red Blood Cell 2.48(L) 4.58 - 5.54 x10(6)/ L [facility] Hemoglobin 7.5(L) 13.7 - 16.5 gm/dL [facility] Hematocrit 22.9(L) 40.5 - 48.5 % [facility] Mean Cell Volume 92.3 82.9 - 93.1 fL [facility] Mean Cell Hemoglobin 30.2 27.5 - 32.1 pg [facility] Mean Cell Hemoglobin Concentration 32.8 32.0 - 35.7 gm/dL [facility] Platelet 208 145 - 357 x10(3)/mc L [facility] RDW Standard Deviation 51.8(H) 36.0 - 45.0 fL [facility] RDW coefficient of variation 15.4(H) 11.4 - 13.8 % [facility] Mean Platelet Volume 8.4 7.6 - 12.9 [facility] NRBC% auto 0.0 % [facility] NRBC Absolute 0.000 0.000 - 0.000 x10(3)/mc L [facility] Blood specimen (specimen) 04/14/2018 5:48 AM EDT 04/14/2018 5:59 AM EDT Narrative Resulting Agency Comment Spec In Lab Apple Gutierrez MD HEMATOLOGY ORDERABLE S Performing Organization Address City/[facility]/ZIP Co de Phone Number [facility] [place] [address] * APTT (04/14/2018 5:48 AM EDT) Partial Thromboplastin Time 28 25 - 37 sec [facility] Comment: The PTT is NOT appropriate for heparin monitoring. Use the Anti-Xa level for heparin monitoring (HEP UFH) or LMWH monitoring (HEP LMW). A PTT less than 37 seconds generally indicates adequate hemostasis. Blood specimen (specimen) 04/14/2018 5:48 AM EDT 04/14/2018 5:59 AM EDT Narrative Resulting Agency Comment Spec In Lab Chase Olvera MD HEMATOLOGY ORDERA BLES Performing Organization Address City/[facility]/ZIP Co de Phone Number [facility] [place] [address] * (ABNORMAL) Prothrombin Time (04/14/2018 5:48 AM EDT) Prothrombin Time 15.1(H) 9.4 - 12.5 sec [facility] International Normalization Ratio 1.4 [facility] Comment: An INR <2.0 indicates [...] Lab Chase Olvera MD HEMATOLOGY ORDERA BLES [facility] [place] [address] * (ABNORMAL) Basic Metabolic Panel (non-fasting) (04/14/2018 5:48 AM EDT) Glucose 110 65 - 199 mg/dL [facility] Comment:Diabetes: >=200 mg/d L plus symptoms Blood Urea Nitrogen 32(H) 10 - 20 mg/dL [facility] Creatinine 2.38(H) 0.80 - 1.50 mg/dL [facility] Sodium 138 135 - 145 mmol/L [facility] Potassium 4.1 3.5 - 5.0 mmol/L [facility] Comment: Please note: ??Patients with WBC >100,000 may have falsely elevated Potassium levels. ??For accurate Potassium quantification in these patients send serum separator tube (gold top) for subsequent determinations. ??Contact the Clinical Chemistry Laboratory if there are any questions. Chloride 106 98 - 107 mmol/L [facility] Carbon Dioxide 20(L) 22 - 31 mmol/L [facility] Anion Gap 12 5 - 15 mmol/L [facility] Calcium 7.6(L) 8.5 - 10.5 mg/dL [facility] Est Glomerular Filtration Rate 29(L) >=60 mL/min/1. 73 m?? [facility] Comment: The eGFR was calculated using the CKD-EPI equation. As with all creatinine based estimates of kidney function, eGFR values calculated with the CKD-EPI equation are not accurate in patients with acute kidney failure, extremes of body mass or the acutely ill. [email or web address] eGFR 34(L) >=60 mL/min/1. 73 m?? [facility] Comment: The eGFR was calculated using the CKD-EPI equation. As with all creatinine based estimates of kidney function, eGFR values calculated with the CKD-EPI equation are not accurate in patients with acute kidney failure, extremes of body mass or the acutely ill. [email or web address] Blood specimen (specimen) 04/14/2018 5:48 AM EDT 04/14/2018 5:59 AM EDT Narrative Resulting Agency Comment Spec In Lab Hay Sparks MD CHEMISTRY ORDERABLES [facility] [place] [address] * Differential, Automated (04/13/2018 8:14 AM EDT) Neutrophil % 66.0 % [facility] Neutrophil Absolute 3.49 1.70 - 6.10 x10(3)/[facility] Lymph % 16.3 % [facility] Lymphocytes Abs 0.9 0.9 - 3.2 x10(3)/[facility] Monocyte % 10.4 % [facility] Monocyte Abs 0.6 0.3 - 0.9 x10(3)/[facility] Eos % 6.3 % [facility] Eosinophils Abs 0.3 0.0 - 0.4 x10(3)/[facility] Basophil % 0.4 % [facility] Baso Absolute 0.0 0.0 - 0.1 x10(3)/[facility] Immature Gran % 0.60 % [facility] Comment: Immature granulocytes(IG's)percentage and absolute count will include metamyelocytes, myelocytes, and promyelocytes. Blood smears from CBCs yielding IG's will be scanned manually for concordance. If this scan disagrees with the automated IG or if promyelocytes are noted, a manual differential will be performed. Immature Gran Absolute 0.03 0.00 - 0.04 x10(3)/mcL [facility] Blood specimen (specimen) 04/13/2018 8:14 AM EDT 04/13/2018 8:21 AM EDT Narrative Resulting Agency Comment Spec In Lab Apple Gutierrez MD HEMATOLOGY ORDERABLE S [facility] [place] [address] * (ABNORMAL) Hemogram (04/13/2018 8:14 AM EDT) White Blood Cell 5.3 4.0 - 9.5 x10(3)/mc L [facility] Red Blood Cell 2.53(L) 4.58 - 5.54 x10(6)/mc L [facility] Hemoglobin 7.8(L) 13.7 - 16.5 gm/dL [facility] Hematocrit 23.3(L) 40.5 - 48.5 % [facility] Mean Cell Volume 92.1 82.9 - 93.1 fL [facility] Mean Cell Hemoglobin 30.8 27.5 - 32.1 pg [facility] Mean Cell Hemoglobin Concentration 33.5 32.0 - 35.7 gm/dL [facility] Platelet 190 145 - 357 x10(3)/mc L [facility] RDW Standard Deviation 53.5(H) 36.0 - 45.0 fL [facility] RDW coefficient of variation 15.9(H) 11.4 - 13.8 % [facility] Mean Platelet Volume 8.2 7.6 - 12.9 fL [facility] NRBC% auto 0.0 % [facility] NRBC Absolute 0.000 0.000 - 0.000 x10(3)/mc L [facility] Blood specimen (specimen) 04/13/2018 8:14 AM EDT 04/13/2018 8:21 AM EDT Narrative Resulting Agency Comment Spec In Lab Apple Gutierrez MD HEMATOLOGY ORDERABLE S Performing Organization Address [facility] Co de Phone Number [facility] [place] [address] * APTT (04/13/2018 8:14 AM EDT) Partial Thromboplastin Time 29 25 - 37 sec [facility] Comment: The PTT is NOT appropriate for heparin monitoring. Use the Anti-Xa level for heparin monitoring (HEP UFH) or LMWH monitoring (HEP LMW). A PTT less than 37 seconds generally indicates adequate hemostasis. Blood specimen (specimen) 04/13/2018 8:14 AM EDT 04/13/2018 8:21 AM EDT Narrative Resulting Agency Comment Spec In Lab Chase Olvera MD HEMATOLOGY ORDERA BLES Performing Organization Address [facility] de Phone Number [facility] [place] [address] * (ABNORMAL) Prothrombin Time (04/13/2018 8:14 AM EDT) Prothrombin Time 17.3(H) 9.4 - 12.5 sec [facility] International Normalization Ratio 1.6 [facility] Comment: An INR <2.0 indicates [...] Lab Chase Olvera MD HEMATOLOGY ORDERA BLES [facility] [place] [address] * (ABNORMAL) Basic Metabolic Panel (non-fasting) (04/13/2018 8:14 AM EDT) Glucose 108 65 - 199 mg/dL [facility] Comment:Diabetes: >=200 mg/d L plus symptoms Blood Urea Nitrogen 30(H) 10 - 20 mg/dL [facility] Creatinine 2.28(H) 0.80 - 1.50 mg/dL [facility] Sodium 138 135 - 145 mmol/L [facility] Potassium 4.5 3.5 - 5.0 mmol/L [facility] Comment: Please note: ??Patients with WBC >100,000 may have falsely elevated Potassium levels. ??For accurate Potassium quantification in these patients send serum separator tube (gold top) for subsequent determinations. ??Contact the Clinical Chemistry Laboratory if there are any questions. Chloride 104 98 - 107 mmol/L [facility] Carbon Dioxide 20(L) 22 - 31 mmol/L [facility] Anion Gap 14 5 - 15 mmol/L [facility] Calcium 7.7(L) 8.5 - 10.5 mg/dL [facility] Est Glomerular Filtration Rate 31(L) >=60 mL/min/1. 73 m?? [facility] Comment: The eGFR was calculated using the CKD-EPI equation. As with all creatinine based estimates of kidney function, eGFR values calculated with the CKD-EPI equation are not accurate in patients with acute kidney failure, extremes of body mass or the acutely ill. [email or web address] eGFR 36(L) >=60 mL/min/1. 73 m?? [facility] Comment: The eGFR was calculated using the CKD-EPI equation. As with all creatinine based estimates of kidney function, eGFR values calculated with the CKD-EPI equation are not accurate in patients with acute kidney failure, extremes of body mass or the acutely ill. [email or web address] Blood specimen (specimen) 04/13/2018 8:14 AM EDT 04/13/2018 8:21 AM EDT Narrative Resulting Agency Comment Spec In Lab Hay Sparks MD CHEMISTRY ORDERABLES Performing Organization Address [facility] de Phone Number [facility] [place] [address] * Tacrolimus level (04/13/2018 8:14 AM EDT) Tacrolimus <2.0 ng/mL [facility] Comment: Trough therapeutic: ??5-15 ng/mL Performed by ultra-performance liquid chromatography tandem mass spectrometry (UPLCMS/MS). This test was developed and its performance characteristics determined by [facility]. It has not been cleared or [...] MD CHEMISTRY ORDERAB LES Performing Organization Address [facility] de Phone Number [facility] [place] [address] * (ABNORMAL) Protein/Creatinine Ratio, urine (04/13/2018 3:45 AM EDT) Creatinine, Urine 51 mg/dL [facility] Protein, Urine 373(H) 0 - 12 mg/dL [facility] Protein / Creatinine Ratio, Urine 7.3 ratio [facility] Urine specimen (specimen) 04/13/2018 3:45 AM EDT 04/13/2018 3:55 AM EDT Narrative Resulting Agency Comment Spec In Lab Chase Olvera MD URINE ORDERABLES Performing Organization Address [facility]/ZIP Co de Phone Number [facility] [place] [address] * (ABNORMAL) Urinalysis Microscopic Exam (04/13/2018 1:51 AM EDT) RBC, Urine 4(H) 0 - 3 /HPF [facility] WBC, Urine 1 0 - 3 /HPF [facility] Transitional Epithelial Cells, Urine <1 <=1 /HPF [facility] Hyaline Casts, Urine 4(H) 0 - 2 /LPF [facility] Urine specimen obtained by clean catch procedure (specimen) 04/13/2018 1:51 AM EDT 04/13/2018 1:58 AM EDT Narrative Resulting Agency Comment Spec In Lab Rasta Hernández MD URINE ORDERABLES Performing Organization Address [facility] Co de Phone Number [facility] [place] [address] * (ABNORMAL) Urinalysis with reflex Culture (04/13/2018 1:51 AM EDT) Glucose, Urine Dipstick Negative Negative mg/dL [facility] Protein, Urine Dipstick >=500(A) Negative mg/dL [facility] Bilirubin, Urine Dipstick Negative Negative mg/dL [facility] Comment: Clinical correlation required for positive Urine Bilirubin results as false positive may occur with some drugs and drug related products. If a false positive is suspected a serum total bilirubin should be considered if clinically indicated. Urobilinogen, Urine Dipstick Normal Normal mg/dL [facility] pH, Urn (dipstick) 7.0 5.0 - 8.0 [facility] Blood, Urine Dipstick Negative Negative mg/dL [facility] Ketone, Urine Dipstick Negative Negative mg/dL [facility] Nitrite, Urine Dipstick Negative Negative [facility] Leukocytes, Urine Dipstick Negative Negative [facility] Appearance, Urine Dipstick Clear Clear [facility] Specific [place] Urine Automated 1.017 1.002 - 1.030 [facility] Color, Urine Dipstick Yellow Yellow [facility] Reflex to Culture No [facility] Urine specimen obtained by clean catch procedure (specimen) 04/13/2018 1:51 AM EDT 04/13/2018 1:58 AM EDT Narrative Resulting Agency Comment Spec In Lab Chase Olvera MD URINE ORDERABLES [facility] [place] [address] * MRI Angiogram Neck wo Contrast (04/12/2018 [...] atherosclerosis, NO CONTRAST TECHNIQUE: MRA of the [place] and MRA of the neck were performed without IV contrast, with qsiy-eh-odavoo technique. ?? COMPARISON: MR head 04/07/2018 FINDINGS: MRA [place]: The intracranial internal carotid arteries, vertebral arteries, basilar artery, superior cerebellar arteries are normal in course and caliber. The bilateral MARCUS, MCA, and PUBLIC HEALTH POLICY ANALYST are normal in course and caliber. No focal stenosis caliber change or aneurysm.. MRA neck: Njkj-zh-yopxzj imaging excludes the arch. Vertebral arteries, common carotid arteries, bilateral ECA, ICA are normal in course and caliber. Procedure Note Sabrina Vargas MD - 04/12/2018 EXAMINATION: MRI ANGIOGRAM HEAD WO CONTRAST (GENERIC), MRI ANGIOGRAM NECKWO CONTRAST CLINICAL HISTORY: question intra cranial atherosclerosis, NO CONTRAST TECHNIQUE: MRA of the [place] and MRA of the neck were performed withoutIV contrast, with ddpa-os-qzarsd technique. COMPARISON: MR head 04/07/2018 FINDINGS: MRA [place]: The intracranial internal carotid arteries, vertebral arteries, basilarartery, superior cerebellar arteries are normal in course and caliber. Thebilateral MARCUS, MCA, and PUBLIC HEALTH POLICY ANALYST are normal in course and caliber. No focal stenosiscaliber change or aneurysm.. MRA neck: Fepy-vn-igndfp imaging excludes the arch. Vertebral arteries, common [...] atherosclerosis, NO CONTRAST TECHNIQUE: MRA of the [place] and MRA of the neck were performed without IV contrast, with dfzt-kx-swphgz technique. ?? COMPARISON: MR head 04/07/2018 FINDINGS: MRA [place]: The intracranial internal carotid arteries, vertebral arteries, basilar artery, superior cerebellar arteries are normal in course and caliber. The bilateral MARCUS, MCA, and PUBLIC HEALTH POLICY ANALYST are normal in course and caliber. No focal stenosis caliber change or aneurysm.. MRA neck: Mlkd-cq-aljssv imaging excludes the arch. Vertebral arteries, common carotid arteries, bilateral ECA, ICA are normal in course and caliber. Procedure Note Sabrina Vargas MD - 04/12/2018 EXAMINATION: MRI ANGIOGRAM HEAD WO CONTRAST (GENERIC), MRI ANGIOGRAM NECKWO CONTRAST CLINICAL HISTORY: question intra cranial atherosclerosis, NO CONTRAST TECHNIQUE: MRA of the [place] and MRA of the neck were performed withoutIV contrast, with zxcd-sx-ebpasj technique. COMPARISON: MR head 04/07/2018 FINDINGS: MRA [place]: The intracranial internal carotid arteries, vertebral arteries, basilarartery, superior cerebellar arteries are normal in course and caliber. Thebilateral MARCUS, MCA, and PUBLIC HEALTH POLICY ANALYST are normal in course and caliber. No focal stenosiscaliber change or aneurysm.. MRA neck: Xupy-io-zomkee imaging excludes the arch. Vertebral arteries, common carotid arteries, bilateral ECA, ICA are normalin course and caliber. IMPRESSION Normal MRA of the head and neck. I have personally reviewed the image(s) and the residents interpretationand agree with the findings, Sabrina Chacko MD at 04/12/2018 5:27 PM 5:27 PM Chase Olvera MD IM MRI ORDERABLE S * Gold Tube HOLD (04/12/2018 8:40 AM EDT) Gold Hold Sample in lab. [facility] Blood specimen (specimen) Venous Draw / Unknown 04/12/2018 8:40 AM EDT 04/12/2018 9:16 AM EDT Apple Gutierrez MD CHEMISTRY ORDERABLES [facility] [place] [address] * (ABNORMAL) Differential, Automated (04/12/2018 8:40 AM EDT) Neutrophil % 65.6 % [facility] Neutrophil Absolute 3.27 1.70 - 6.10 x10(3)/ L [facility] Lymph % 15.6 % [facility] Lymphocytes Abs 0.8(L) 0.9 - 3.2 x10(3)/ L [facility] Monocyte % 11.0 % [facility] Monocyte Abs 0.6 0.3 - 0.9 x10(3)/ L [facility] Eos % 6.6 % [facility] Eosinophils Abs 0.3 0.0 - 0.4 x10(3)/[facility] Basophil % 0.6 % [facility] Baso Absolute 0.0 0.0 - 0.1 x10(3)/[facility] Immature Gran % 0.60 % [facility] Comment: Immature granulocytes(IG's)percentage and absolute count will include metamyelocytes, myelocytes, and promyelocytes. Blood smears from CBCs yielding IG's will be scanned manually for concordance. If this scan disagrees with the automated IG or if promyelocytes are noted, a manual differential will be performed. Immature Gran Absolute 0.03 0.00 - 0.04 x10(3)/[facility] Blood specimen (specimen) 04/12/2018 8:40 AM EDT 04/12/2018 9:15 AM EDT Narrative Resulting Agency Comment Spec In Lab Apple Gutierrez MD HEMATOLOGY ORDERABLE S [facility] [place] [address] * (ABNORMAL) Hemogram (04/12/2018 8:40 AM EDT) White Blood Cell 5.0 4.0 - 9.5 x10(3)/ L [facility] Red Blood Cell 2.60(L) 4.58 - 5.54 x10(6)/mc L [facility] Hemoglobin 7.9(L) 13.7 - 16.5 gm/dL [facility] Hematocrit 24.0(L) 40.5 - 48.5 % [facility] Mean Cell Volume 92.3 82.9 - 93.1 fL [facility] Mean Cell Hemoglobin 30.4 27.5 - 32.1 pg [facility] Mean Cell Hemoglobin Concentration 32.9 32.0 - 35.7 gm/dL [facility] Platelet 183 145 - 357 x10(3)/mc L [facility] RDW Standard Deviation 54.2(H) 36.0 - 45.0 [facility] RDW coefficient of variation 16.0(H) 11.4 - 13.8 % [facility] Mean Platelet Volume 8.8 7.6 - 12.9 [facility] NRBC% auto 0.0 % [facility] NRBC Absolute 0.000 0.000 - 0.000 x10(3)/mc L [facility] Blood specimen (specimen) 04/12/2018 8:40 AM EDT 04/12/2018 9:15 AM EDT Narrative Resulting Agency Comment Spec In Lab Apple Gutierrez MD HEMATOLOGY ORDERABLE S Performing Organization Address City/State/[facility] Co de Phone Number [facility] [place] [address] * APTT (04/12/2018 8:40 AM EDT) Partial Thromboplastin Time 32 25 - 37 sec [facility] Comment: The PTT is NOT appropriate for heparin monitoring. Use the Anti-Xa level for heparin monitoring (HEP UFH) or LMWH monitoring (HEP LMW). A PTT less than 37 seconds generally indicates adequate hemostasis. Blood specimen (specimen) 04/12/2018 8:40 AM EDT 04/12/2018 9:15 AM EDT Narrative Resulting Agency Comment Spec In Lab Chase Olvera MD HEMATOLOGY ORDERA BLES Performing Organization Address [facility] Co de Phone Number [facility] [place] [address] * (ABNORMAL) Prothrombin Time (04/12/2018 8:40 AM EDT) Prothrombin Time 20.0(H) 9.4 - 12.5 sec [facility] International Normalization Ratio 1.8 [facility] Comment: An INR <2.0 indicates [...] MD HEMATOLOGY ORDERA BLES Performing Organization Address [facility] Co de Phone Number [facility] [place] [address] * (ABNORMAL) Basic Metabolic Panel (non-fasting) (04/12/2018 8:40 AM EDT) Glucose 113 65 - 199 mg/dL [facility] Comment:Diabetes: >=200 mg/d L plus symptoms Blood Urea Nitrogen 31(H) 10 - 20 mg/dL [facility] Creatinine 2.35(H) 0.80 - 1.50 mg/dL [facility] Sodium 140 135 - 145 mmol/L [facility] Potassium 4.4 3.5 - 5.0 mmol/L [facility] Comment: Please note: ??Patients with WBC >100,000 may have falsely elevated Potassium levels. ??For accurate Potassium quantification in these patients send serum separator tube (gold top) for subsequent determinations. ??Contact the Clinical Chemistry Laboratory if there are any questions. Chloride 106 98 - 107 mmol/L [facility] Carbon Dioxide 20(L) 22 - 31 mmol/L [facility] Anion Gap 14 5 - 15 mmol/L [facility] Calcium 7.4(L) 8.5 - 10.5 mg/dL [facility] Est Glomerular Filtration Rate 30(L) >=60 mL/min/1. 73 m?? [facility] Comment: The eGFR was calculated using the CKD-EPI equation. As with all creatinine based estimates of kidney function, eGFR values calculated with the CKD-EPI equation are not accurate in patients with acute kidney failure, extremes of body mass or the acutely ill. [email or web address] eGFR 35(L) >=60 mL/min/1. 73 m?? [facility] Comment: The eGFR was calculated using the CKD-EPI equation. As with all creatinine based estimates of kidney function, eGFR values calculated with the CKD-EPI equation are not accurate in patients with acute kidney failure, extremes of body mass or the acutely ill. [email or web address] Blood specimen (specimen) 04/12/2018 8:40 AM EDT 04/12/2018 9:15 AM EDT Narrative Resulting Agency Comment Spec In Lab Hay Sparks MD CHEMISTRY ORDERABLES Performing Organization Address City/State/[facility] Co de Phone Number [facility] [place] [address] * ECHO COMPLETE (04/11/2018 2:53 PM EDT) EF 65 HEARTLAB SYSTEM Anatomical Region Laterality Modality Other 04/11/2018 Narrative 04/11/2018 3:21 PM EDT Amended Report Procedure: ?Transthoracic Echocardiogram Patient: ?ARNOL CHRISTY J ? (Age): 1960(57y) Med Rec#: ? [id number] ?Sex: ?M ? Site Loc: ? [facility] ?Ht / Wt: ??178(cm)/91.6(kg Pt. Loc: ?Adult Floor ? BSA: ?2.1 Study Date: ?? 04/11/2018 ?Pt. Type: Outpatient Tape: ? Referring: Lida Peter Reading: Tim Estrella ([id number]) Service Representative: Chidi Steve [facility] Service Representative 2: Yimi Norman Diagnosis: *Cerebral infarction due [...] ? Mid-Inferior ?Normal ? Mid-Inferoseptal ?Normal ? [place]-Septal ? Normal ? [place]-Anterior ? Normal ? [place]-Lateral ?Normal ? [place]-Inferior ? Normal ? [place]-Tip ?Normal ? This report has been electronically signed by: Tim Estrella M.D. ? 04/11/2018 15:21:34 Images reviewed and interpretation verified [place] [facility] Procedure Note Tim Estrella MD - 04/11/2018 Amended Report Procedure: Transthoracic Echocardiogram Patient: ARNOL DU(Age): 1960(57y) Med Rec#: [id number] Sex: M Site Loc: [facility] Ht / Wt: 178(cm)/91.6(kg Pt. Loc: Adult Floor BSA: 2.1 Study Date: 04/11/2018 Pt. Type: Outpatient Tape: Referring: Lida Peter Reading: Tim Estrella ([id number]) Service Representative: Chidi Steve [facility] Service Representative 2: Yimi Norman Diagnosis: *Cerebral infarction due [...] Normal Mid-Posterolateral Normal Mid-Inferior Normal Mid-Inferoseptal Normal Elberta-Septal Normal Elberta-Anterior Normal [place]berta-Lateral Normal [place]berta-Inferior Normal [place]ber[place]-Tip Normal This report has been electronically signed by: Tim Estrella M.D. 04/11/2018 15:21:34 Images reviewed and interpretation verified [facility] Cardiac Ultrasound Laboratory Lida Peter MD ECHO ORDERABLES * ABORH Recheck Status (04/11/2018 6:28 AM EDT) Pathologist [facility] ABORH Type Recheck Completed [facility] Blood specimen (specimen) 04/11/2018 6:28 AM EDT 04/11/2018 6:28 AM EDT Narrative Resulting Agency Comment Spec In Lab Hanny Wiseman MD BLOOD BANK LAB ORDER KELLY [facility] [place] [address] * Antibody screen (04/11/2018 6:28 AM EDT) [facility] Ab Screen Interp Negative [facility] Expires at [id number] on: 04/14/2018 [facility] Blood specimen (specimen) 04/11/2018 6:28 AM EDT 04/11/2018 6:28 AM EDT Narrative Resulting Agency Comment Spec In Lab Hanny Wiseman MD BLOOD BANK LAB ORDER KELLY [facility] [place] [address] * ABO/Rh Typing (04/11/2018 6:28 AM EDT) ABORH Type A Pos [facility] Blood specimen (specimen) 04/11/2018 6:28 AM EDT 04/11/2018 6:28 AM EDT Narrative Resulting Agency Comment Spec In Lab Hanny Wiseman MD BLOOD BANK LAB ORDER KELLY [facility] [place] [address] * (ABNORMAL) Differential, Automated (04/11/2018 5:55 AM EDT) Neutrophil % 68.9 % [facility] Neutrophil Absolute 3.90 1.70 - 6.10 x10(3)/mc L [facility] Lymph % 14.7 % [facility] Lymphocytes Abs 0.8(L) 0.9 - 3.2 x10(3)/[facility]OR[facility] Monocyte % 10.6 % [facility] Monocyte Abs 0.6 0.3 - 0.9 x10(3)/ L [facility] Eos % 4.9 % [facility] Eosinophils Abs 0.3 0.0 - 0.4 x10(3)/ L [facility] Basophil % 0.4 % [facility] Baso Absolute 0.0 0.0 - 0.1 x10(3)/mc L [facility] Immature Gran % 0.50 % [facility] Comment: Immature granulocytes(IG's)percentage and absolute count will include metamyelocytes, myelocytes, and promyelocytes. Blood smears from CBCs yielding IG's will be scanned manually for concordance. If this scan disagrees with the automated IG or if promyelocytes are noted, a manual differential will be performed. Immature Gran Absolute 0.03 0.00 - 0.04 x10(3)/mc L [facility] Blood specimen (specimen) 04/11/2018 5:55 AM EDT 04/11/2018 6:03 AM EDT Narrative Resulting Agency Comment Spec In Lab Apple Gutierrez MD HEMATOLOGY ORDERABLE S [facility] [place] [address] * (ABNORMAL) Hemogram (04/11/2018 5:55 AM EDT) White Blood Cell 5.7 4.0 - 9.5 x10(3)/mc L [facility] Red Blood Cell 2.44(L) 4.58 - 5.54 x10(6)/mc L [facility] Hemoglobin 7.4(L) 13.7 - 16.5 gm/dL [facility] Hematocrit 22.2(L) 40.5 - 48.5 % [facility] Mean Cell Volume 91.0 82.9 - 93.1 fL [facility] Mean Cell Hemoglobin 30.3 27.5 - 32.1 pg [facility] Mean Cell Hemoglobin Concentration 33.3 32.0 - 35.7 gm/dL [facility] Platelet 150 145 - 357 x10(3)/mc L [facility] RDW Standard Deviation 52.6(H) 36.0 - 45.0 fL [facility] RDW coefficient of variation 15.9(H) 11.4 - 13.8 % [facility] Mean Platelet Volume 9.1 7.6 - 12.9 fL [facility] NRBC% auto 0.0 % [facility] NRBC Absolute 0.000 0.000 - 0.000 x10(3)/mc L [facility] Blood specimen (specimen) 04/11/2018 5:55 AM EDT 04/11/2018 6:03 AM EDT Narrative Resulting Agency Comment Spec In Lab Apple Gutierrez MD HEMATOLOGY ORDERABLE S [facility] [place] [address] * APTT (04/11/2018 5:55 AM EDT) Partial Thromboplastin Time 37 25 - 37 sec [facility] Comment: The PTT is NOT appropriate for heparin monitoring. Use the Anti-Xa level for heparin monitoring (HEP UFH) or LMWH monitoring (HEP LMW). A PTT less than 37 seconds generally indicates adequate hemostasis. Blood specimen (specimen) 04/11/2018 5:55 AM EDT 04/11/2018 6:04 AM EDT Narrative Resulting Agency Comment Spec In Lab Chase Olvera MD HEMATOLOGY ORDERA BLES Performing Organization Address [facility] Co de Phone Number [facility] [place] [address] * (ABNORMAL) Prothrombin Time (04/11/2018 5:55 AM EDT) Prothrombin Time 26.8(H) 9.4 - 12.5 sec [facility] International Normalization Ratio 2.4 [facility] Comment: An INR <2.0 indicates [...] MD HEMATOLOGY ORDERA BLES Performing Organization Address [facility] Co de Phone Number [facility] [place] [address] * (ABNORMAL) Basic Metabolic Panel (non-fasting) (04/11/2018 5:55 AM EDT) Glucose 112 65 - 199 mg/dL [facility] Comment:Diabetes: >=200 mg/d L plus symptoms Blood Urea Nitrogen 33(H) 10 - 20 mg/dL [facility] Creatinine 2.33(H) 0.80 - 1.50 mg/dL [facility] Sodium 144 135 - 145 mmol/L [facility] Potassium 4.5 3.5 - 5.0 mmol/L [facility] Comment: Please note: ??Patients with WBC >100,000 may have falsely elevated Potassium levels. ??For accurate Potassium quantification in these patients send serum separator tube (gold top) for subsequent determinations. ??Contact the Clinical Chemistry Laboratory if there are any questions. Chloride 110(H) 98 - 107 mmol/L [facility] Carbon Dioxide 22 22 - 31 mmol/L [facility] Anion Gap 12 5 - 15 mmol/L [facility] Calcium 7.3(L) 8.5 - 10.5 mg/dL [facility] Est Glomerular Filtration Rate 30(L) >=60 mL/min/1. 73 m?? [facility] Comment: The eGFR was calculated using the CKD-EPI equation. As with all creatinine based estimates of kidney function, eGFR values calculated with the CKD-EPI equation are not accurate in patients with acute kidney failure, extremes of body mass or the acutely ill. [email or web address] eGFR 35(L) >=60 mL/min/1. 73 m?? [facility] Comment: The eGFR was calculated using the CKD-EPI equation. As with all creatinine based estimates of kidney function, eGFR values calculated with the CKD-EPI equation are not accurate in patients with acute kidney failure, extremes of body mass or the acutely ill. [email or web address] Blood specimen (specimen) 04/11/2018 5:55 AM EDT 04/11/2018 6:04 AM EDT Narrative Resulting Agency Comment Spec In Lab Hay Sparks MD CHEMISTRY ORDERABLES [facility] [place] [address] * POCT Glucose (04/10/2018 7:56 AM EDT) Pathologist [facility] Glucose, POC 119 65 - 199 mg/dL [facility] Comment: Supplemental ranges: <140 mg/dL before meals <180 mg/dL all other times of the day Blood specimen (specimen) 04/10/2018 7:56 AM EDT 04/10/2018 7:56 AM EDT Chase Olvera MD POINT OF CARE SHAZIA T ORDERABLES [facility] [place] [address] * (ABNORMAL) Differential, Automated (04/10/2018 5:35 AM EDT) [facility] Neutrophil % 72.4 % [facility] Neutrophil Absolute 4.21 1.70 - 6.10 x10(3)/mc L [facility] Lymph % 12.7 % [facility] Lymphocytes Abs 0.7(L) 0.9 - 3.2 x10(3)/mc L [facility] Monocyte % 9.1 % [facility] Monocyte Abs 0.5 0.3 - 0.9 x10(3)/mc L [facility] Eos % 5.0 % [facility] Eosinophils Abs 0.3 0.0 - 0.4 x10(3)/mc L [facility] Basophil % 0.3 % [facility] Baso Absolute 0.0 0.0 - 0.1 x10(3)/mc L [facility] Immature Gran % 0.50 % [facility] Comment: Immature granulocytes(IG's)percentage and absolute count will include metamyelocytes, myelocytes, and promyelocytes. Blood smears from CBCs yielding IG's will be scanned manually for concordance. If this scan disagrees with the automated IG or if promyelocytes are noted, a manual differential will be performed. Immature Gran Absolute 0.03 0.00 - 0.04 x10(3)/mc L [facility] Blood specimen (specimen) 04/10/2018 5:35 AM EDT 04/10/2018 6:09 AM EDT Narrative Resulting Agency Comment Spec In Lab Apple Gutierrez MD HEMATOLOGY ORDERABLE S [facility] [place] [address] * (ABNORMAL) Hemogram (04/10/2018 5:35 AM EDT) White Blood Cell 5.8 4.0 - 9.5 x10(3)/[facility] Red Blood Cell 2.44(L) 4.58 - 5.54 x10(6)/[facility] Hemoglobin 7.3(L) 13.7 - 16.5 gm/dL [facility] Hematocrit 22.0(L) 40.5 - 48.5 % [facility] Mean Cell Volume 90.2 82.9 - 93.1 fL [facility] Mean Cell Hemoglobin 29.9 27.5 - 32.1 pg [facility] Mean Cell Hemoglobin Concentration 33.2 32.0 - 35.7 gm/dL [facility] Platelet 105(L) 145 - 357 x10(3)/[facility] LABOR[facility] RDW Standard Deviation 52.6(H) 36.0 - 45.0 [facility] RDW coefficient of variation 15.9(H) 11.4 - 13.8 % [facility] Mean Platelet Volume 9.6 7.6 - 12.9 [facility] NRBC% auto 0.0 % [facility] NRBC Absolute 0.000 0.000 - 0.000 x10(3)/[facility] Blood specimen (specimen) 04/10/2018 5:35 AM EDT 04/10/2018 6:09 AM EDT Narrative Resulting Agency Comment Spec In Lab Apple Gutierrez MD HEMATOLOGY ORDERABLE S Performing Organization Address [facility] Co de Phone Number [facility] [place] [address] * APTT (04/10/2018 5:35 AM EDT) Partial Thromboplastin Time 36 25 - 37 sec [facility] Comment: The PTT is NOT appropriate for heparin monitoring. Use the Anti-Xa level for heparin monitoring (HEP UFH) or LMWH monitoring (HEP LMW). A PTT less than 37 seconds generally indicates adequate hemostasis. Blood specimen (specimen) 04/10/2018 5:35 AM EDT 04/10/2018 6:09 AM EDT Narrative Resulting Agency Comment Spec In Lab Chase Olvera MD HEMATOLOGY ORDERA BLES Performing Organization Address [facility] Co de Phone Number [facility] [place] [address] * (ABNORMAL) Prothrombin Time (04/10/2018 5:35 AM EDT) Prothrombin Time 28.7(H) 9.4 - 12.5 sec [facility] International Normalization Ratio 2.6 [facility] Comment: An INR <2.0 indicates [...] MD HEMATOLOGY ORDERA BLES Performing Organization Address [facility] Co de Phone Number [facility] [place] [address] * (ABNORMAL) Basic Metabolic Panel (non-fasting) (04/10/2018 5:35 AM EDT) Glucose 112 65 - 199 mg/dL [facility] Comment:Diabetes: >=200 mg/d L plus symptoms Blood Urea Nitrogen 33(H) 10 - 20 mg/dL [facility] Creatinine 2.59(H) 0.80 - 1.50 mg/dL [facility] Sodium 144 135 - 145 mmol/L [facility] Potassium 4.3 3.5 - 5.0 mmol/L [facility] Comment: Please note: ??Patients with WBC >100,000 may have falsely elevated Potassium levels. ??For accurate Potassium quantification in these patients send serum separator tube (gold top) for subsequent determinations. ??Contact the Clinical Chemistry Laboratory if there are any questions. Chloride 109(H) 98 - 107 mmol/L [facility] Carbon Dioxide 23 22 - 31 mmol/L [facility] Anion Gap 12 5 - 15 mmol/L [facility] Calcium 7.9(L) 8.5 - 10.5 mg/dL [facility] Est Glomerular Filtration Rate 27(L) >=60 mL/min/1. 73 m?? [facility] Comment: The eGFR was calculated using the CKD-EPI equation. As with all creatinine based estimates of kidney function, eGFR values calculated with the CKD-EPI equation are not accurate in patients with acute kidney failure, extremes of body mass or the acutely ill. [email or web address] eGFR 31(L) >=60 mL/min/1. 73 m?? [facility] Comment: The eGFR was calculated using the CKD-EPI equation. As with all creatinine based estimates of kidney function, eGFR values calculated with the CKD-EPI equation are not accurate in patients with acute kidney failure, extremes of body mass or the acutely ill. [email or web address] Blood specimen (specimen) 04/10/2018 5:35 AM EDT 04/10/2018 6:09 AM EDT Narrative Resulting Agency Comment Spec In Lab Hay Sparks MD CHEMISTRY ORDERABLES Performing Organization Address City/[facility]/ZIP Co de Phone Number [facility] [place] [address] * POCT Glucose (04/09/2018 8:26 PM EDT) Glucose, POC 137 65 - 199 mg/dL [facility] Comment: Supplemental ranges: <140 mg/dL before meals <180 mg/dL all other times of the day Blood specimen (specimen) 04/09/2018 8:26 PM EDT 04/09/2018 8:26 PM EDT Chase Olvera MD POINT OF CARE SHAZIA T ORDERABLES Performing Organization Address [facility]/ZIP Co de Phone Number [facility] [place] [address] * APTT (04/09/2018 8:25 PM EDT) Partial Thromboplastin Time 37 25 - 37 sec [facility] Comment: The PTT is NOT appropriate for heparin monitoring. Use the Anti-Xa level for heparin monitoring (HEP UFH) or LMWH monitoring (HEP LMW). A PTT less than 37 seconds generally indicates adequate hemostasis. Blood specimen (specimen) 04/09/2018 8:25 PM EDT 04/09/2018 8:30 PM EDT Narrative Resulting Agency Comment Spec In Lab Lida Peter MD HEMATOLOGY ORDERABLE S [facility] [place] [address] * (ABNORMAL) Prothrombin Time (04/09/2018 8:25 PM EDT) Prothrombin Time 30.4(H) 9.4 - 12.5 sec [facility] International Normalization Ratio 2.7 [facility] Comment: An INR <2.0 indicates [...] Lab Lida Peter MD HEMATOLOGY ORDERABLE S [facility] [place] [address] * Transfuse thawed plasma (04/09/2018 6:04 PM EDT) Lida Peter MD NURSING TREATMENT OR DERABLES - BLOOD ADMIN * Transfuse thawed plasma (04/09/2018 4:29 PM EDT) Lida Peter MD NURSING TREATMENT OR DERABLES - BLOOD ADMIN * Transfuse thawed plasma (04/09/2018 1:52 PM EDT) Chase Olvera MD NURSING TREATMENT ORDERABLES - BLOOD ADMIN * Prepare thawed plasma (04/09/2018 11:05 AM EDT) Dispensed? Yes [facility] Blood specimen (specimen) 04/09/2018 11:05 AM EDT 04/09/2018 11:07 AM EDT Lida Peter MD BLOOD BANK PRODUCT O RDERABLES [facility] [place] [address] * (ABNORMAL) APTT (04/09/2018 10:03 AM EDT) Partial Thromboplastin Time 39(H) 25 - 37 sec [facility] Comment: The PTT is NOT appropriate for heparin monitoring. Use the Anti-Xa level for heparin monitoring (HEP UFH) or LMWH monitoring (HEP LMW). A PTT less than 37 seconds generally indicates adequate hemostasis. Blood specimen (specimen) 04/09/2018 10:03 AM EDT 04/09/2018 10:13 AM EDT Narrative Resulting Agency Comment Spec In Lab Lida Peter MD HEMATOLOGY ORDERABLE S Performing Organization Address [facility]/ZIP Co de Phone Number [facility] [place] [address] * (ABNORMAL) Prothrombin Time (04/09/2018 10:03 AM EDT) Prothrombin Time 47.7(H) 9.4 - 12.5 sec [facility] International Normalization Ratio 4.2 [facility] Comment: An INR <2.0 indicates [...] MD HEMATOLOGY ORDERABLE S Performing Organization Address City/[facility]/ZIP Co de Phone Number [facility] [place] [address] * Differential, Automated (04/09/2018 3:05 AM EDT) Neutrophil % 74.9 % [facility] Neutrophil Absolute 6.08 1.70 - 6.10 x10(3)/[facility] Lymph % 12.2 % [facility] Lymphocytes Abs 1.0 0.9 - 3.2 x10(3)/[facility] Monocyte % 8.7 % [facility] Monocyte Abs 0.7 0.3 - 0.9 x10(3)/[facility] Eos % 3.2 % [facility] Eosinophils Abs 0.3 0.0 - 0.4 x10(3)/[facility] Basophil % 0.5 % [facility] Baso Absolute 0.0 0.0 - 0.1 x10(3)/[facility] Immature Gran % 0.50 % [facility] Comment: Immature granulocytes(IG's)percentage and absolute count will include metamyelocytes, myelocytes, and promyelocytes. Blood smears from CBCs yielding IG's will be scanned manually for concordance. If this scan disagrees with the automated IG or if promyelocytes are noted, a manual differential will be performed. Immature Gran Absolute 0.04 0.00 - 0.04 x10(3)/[facility] Blood specimen (specimen) 04/09/2018 3:05 AM EDT 04/09/2018 3:13 AM EDT Narrative Resulting Agency Comment Spec In Lab Apple Gutiererz MD HEMATOLOGY ORDERABLE S [facility] [place] [address] * (ABNORMAL) Hemogram (04/09/2018 3:05 AM EDT) White Blood Cell 8.1 4.0 - 9.5 x10(3)/mc L [facility] Red Blood Cell 2.55(L) 4.58 - 5.54 x10(6)/mc L [facility] Hemoglobin 7.8(L) 13.7 - 16.5 gm/dL [facility] Hematocrit 22.8(L) 40.5 - 48.5 % [facility] Mean Cell Volume 89.4 82.9 - 93.1 fL [facility] Mean Cell Hemoglobin 30.6 27.5 - 32.1 pg [facility] Mean Cell Hemoglobin Concentration 34.2 32.0 - 35.7 gm/dL [facility] Platelet 100(L) 145 - 357 x10(3)/mc L [facility] RDW Standard Deviation 53.7(H) 36.0 - 45.0 fL [facility] RDW coefficient of variation 16.6(H) 11.4 - 13.8 % [facility] Mean Platelet Volume 8.9 7.6 - 12.9 fL [facility] NRBC% auto 0.0 % [facility] NRBC Absolute 0.000 0.000 - 0.000 x10(3)/mc L [facility] Blood specimen (specimen) 04/09/2018 3:05 AM EDT 04/09/2018 3:13 AM EDT Narrative Resulting Agency Comment Spec In Lab Apple Gutierrez MD HEMATOLOGY ORDERABLE S [facility] [place] [address] * (ABNORMAL) Basic Metabolic Panel (non-fasting) (04/09/2018 3:05 AM EDT) Glucose 122 65 - 199 mg/dL [facility] Comment:Diabetes: >=200 mg/d L plus symptoms Blood Urea Nitrogen 44(H) 10 - 20 mg/dL [facility] Creatinine 3.00(H) 0.80 - 1.50 mg/dL [facility] Sodium 146(H) 135 - 145 mmol/L [facility] Potassium 4.9 3.5 - 5.0 mmol/L [facility] Comment: Please note: ??Patients with WBC >100,000 may have falsely elevated Potassium levels. ??For accurate Potassium quantification in these patients send serum separator tube (gold top) for subsequent determinations. ??Contact the Clinical Chemistry Laboratory if there are any questions. Chloride 110(H) 98 - 107 mmol/L [facility] Carbon Dioxide 21(L) 22 - 31 mmol/L [facility] Anion Gap 15 5 - 15 mmol/L [facility] Calcium 7.7(L) 8.5 - 10.5 mg/dL [facility] Est Glomerular Filtration Rate 22(L) >=60 mL/min/1. 73 m?? [facility] Comment: The eGFR was calculated using the CKD-EPI equation. As with all creatinine based estimates of kidney function, eGFR values calculated with the CKD-EPI equation are not accurate in patients with acute kidney failure, extremes of body mass or the acutely ill. [email or web address] eGFR 26(L) >=60 mL/min/1. 73 m?? [facility] Comment: The eGFR was calculated using the CKD-EPI equation. As with all creatinine based estimates of kidney function, eGFR values calculated with the CKD-EPI equation are not accurate in patients with acute kidney failure, extremes of body mass or the acutely ill. [email or web address] Blood specimen (specimen) 04/09/2018 3:05 AM EDT 04/09/2018 3:13 AM EDT Narrative Resulting Agency Comment Spec In Lab Hay Sparks MD CHEMISTRY ORDERABLES Performing Organization Address City/[facility]/ZIP Co de Phone Number [facility] [place] [address] * Lavender Tube HOLD (04/08/2018 8:10 PM EDT) Lavender Hold Sample in lab. [facility] Blood specimen (specimen) Venous Draw / Unknown 04/08/2018 8:10 PM EDT 04/08/2018 8:26 PM EDT John Rose MD HEMATOLOGY ORDERABLE S [facility] [place] [address] * (ABNORMAL) Phenytoin level, total and free (04/08/2018 8:10 PM EDT) Phenytoin 7.3(L) 10.0 - 20.0 mg/L [facility] Comment: Theraputic range: ??10-20 mg/L Toxic: ??> 25 mg/L Patients with renal dysfunction (e.g.creatinine clearance < 30 mls/min) may show falsely elevated results due to accumulation of metabolites in renal failure Phenytoin, Free 0.95(L) 1.00 - 2.00 mg/L [facility] Comment: Therapeutic range: ? Free phenytoin: ??1.00-2.00 mg/L ? % Free phenytoin: ??8-12% Toxic range: ? Free phenytoin: ??>3.00 mg/L This test was developed and its performance characteristics determined by [facility]. It has not been cleared or approved by the FDA. The laboratory is regulated under CLIA as qualified to perform high-complexity testing. This test is used for clinical purposes. It should not be regarded as investigational or for research. Phenyt Free % 13(H) 8 - 12 % [facility] Comment: This test was developed and its performance characteristics determined by [facility]. It has not been cleared [...] In Lab Lida Peter MD CHEMISTRY ORDERABLES [facility] [place] [address] * Transfuse RBC (04/08/2018 4:59 PM EDT) Lida Peter MD NURSING TREATMENT OR DERABLES - BLOOD ADMIN * Transfuse RBC (04/08/2018 4:59 PM EDT) Lida Peter MD NURSING TREATMENT OR DERABLES - BLOOD ADMIN * EEG awake, asleep, drowsy, routine (04/08/2018 3:45 PM EDT) Narrative Beth Colunga - 04/08/2018 3:45 PM EDT Beth Colunga ? 04/08/2018 ??3:45 PM [facility] Department of Neurology In Patient Routine [...] 250 mg ??250 mg Oral Daily Natalya Minaay MD ?? 250 mg at 04/07/18 2020 [...] Natalya Minaya MD ?? 1 mg at 04/08/18828 ? ? mycophenolate (CELLCEPT) capsule 250 mg ??250 mg Oral BID Natalya Minaya MD ?? 250 mg at 04/08/18822 ? ? hydrALAZINE (APRESOLINE) injection 10 mg ??10 mg Intravenous Q6H PRN Natalya Minaya MD ? labetalol (NORMODYNE,TRANDATE) injection 20 mg ??20 mg Intravenous Q4H PRN Natalya Minaya MD ? METHODS: A 21 channel digitized electroencephalogram was performed in the [facility] Clinical Neurophysiology Laboratory. The 10/20 international system of electrode placement was used and bipolar and referential electrode montages were recorded. ??In addition to EEG the patient was monitored for EKG and lateral/vertical eye movements. Video was recorded during the session. The duration of the recording was 30 minutes. AUDITOR/QUALITY'S REPORT: Performed by: AT Patient was not sleep deprived. Sleep was not attained. Photic stimulation was performed. Hyperventilation was not performed. Effort was was not adequate. Movement and other artifact was not significant. Comments: none Lida Peter MD NEUROLOGY ORDERABLES * Carotid Duplex, Bilateral (04/08/2018 2:49 PM EDT) VB Text Report Department: Vascular Surgery Lab Patient: [id number] (ARNOL, CHRISTY) CPT: 56867 ICD10: I63.9 Referring Physician: LIDA PETER ?? [...] Peter MD VASCULAR ORDERABLES Performing Organization Address [facility] Co de Phone Number VASCU[employer] * (ABNORMAL) Levetiracetam level (04/08/2018 1:55 PM EDT) Levetiracetam Lvl (NOVEMBER) 47.4(H) 12.0 - 46.0 mcg/mL [facility] Comment: ADDITIONAL INFORMATION This test was developed and its performance characteristics determined by [facility] in a manner consistent with CLIA requirements. This test has not been cleared or approved by the U.S. Food and Drug Administration. Test Performed by: [facility] - [address] [address] Blood specimen (specimen) 04/08/2018 1:55 PM EDT 04/08/2018 3:54 PM EDT Narrative Resulting Agency Comment Spec In Lab Lida Peter MD LAB SEND OUT ORDERAB LES Performing Organization Address [facility] Co de Phone Number [facility] [place] [address] * Prepare RBC (04/08/2018 11:15 AM EDT) Dispensed? No [facility] Blood specimen (specimen) 04/08/2018 11:15 AM EDT 04/08/2018 11:11 AM EDT Lida Peter MD BLOOD BANK PRODUCT O RDERABLES Performing Organization Address [facility]/ZIP Co de Phone Number [facility] [place] [address] * Prepare RBC (04/08/2018 11:15 AM EDT) Dispensed? Yes [facility] Blood specimen (specimen) 04/08/2018 11:15 AM EDT 04/08/2018 11:11 AM EDT Lida Peter MD BLOOD BANK PRODUCT O RDERABLES Performing Organization Address [facility]/ZIP Co de Phone Number [facility] [place] [address] * (ABNORMAL) APTT (04/08/2018 10:45 AM EDT) Partial Thromboplastin Time 38(H) 25 - 37 sec [facility] Comment: The PTT is NOT appropriate for heparin monitoring. Use the Anti-Xa level for heparin monitoring (HEP UFH) or LMWH monitoring (HEP LMW). A PTT less than 37 seconds generally indicates adequate hemostasis. Blood specimen (specimen) 04/08/2018 10:45 AM EDT 04/08/2018 10:55 AM EDT Narrative Resulting Agency Comment Spec In Lab Lida Peter MD HEMATOLOGY ORDERABLE S Performing Organization Address [facility] Co de Phone Number [facility] [place] [address] * (ABNORMAL) Prothrombin Time (04/08/2018 10:45 AM EDT) Prothrombin Time 51.2(H) 9.4 - 12.5 sec [facility] International Normalization Ratio 4.5 [facility] Comment: An INR <2.0 indicates [...] MD HEMATOLOGY ORDERABLE S Performing Organization Address City/[facility]/ZIP Co de Phone Number [facility] [place] [address] * (ABNORMAL) CK (04/08/2018 10:45 AM EDT) Creatine Kinase 646(H) 0 - 200 unit/L [facility] Blood specimen (specimen) 04/08/2018 10:45 AM EDT 04/08/2018 10:55 AM EDT Narrative Resulting Agency Comment Spec In Lab Lida Peter MD CHEMISTRY ORDERABLES Performing Organization Address [facility] Co de Phone Number [facility] [place] [address] * (ABNORMAL) Hemoglobin and Hematocrit, blood (04/08/2018 10:45 AM EDT) Hemoglobin 7.2(L) 13.7 - 16.5 gm/dL [facility] Hematocrit 21.3(L) 40.5 - 48.5 % [facility] Blood specimen (specimen) 04/08/2018 10:45 AM EDT 04/08/2018 10:55 AM EDT Narrative Resulting Agency Comment Spec In Lab Lida Peter MD HEMATOLOGY ORDERABLE S Performing Organization Address City/[facility]/ZIP Co de Phone Number [facility] [place] [address] * Tacrolimus level (04/08/2018 8:30 AM EDT) Tacrolimus 2.1 ng/mL [facility] Comment: Trough therapeutic: ??5-15 ng/mL Performed by ultra-performance liquid chromatography tandem mass spectrometry (UPLCMS/MS). This test was developed and its performance characteristics determined by [facility]. It has not been cleared [...] Peter MD CHEMISTRY ORDERABLES Performing Organization Address [facility]/ZIP Co de Phone Number [facility] [place] [address] * Prepare RBC (04/08/2018 4:55 AM EDT) Dispensed? Yes [facility] Blood specimen (specimen) 04/08/2018 4:55 AM EDT 04/08/2018 4:59 AM EDT Lida Peter MD BLOOD BANK PRODUCT O RDERABLES Performing Organization Address [facility] Co de Phone Number [facility] [place] [address] * Blue Tube HOLD (04/08/2018 4:05 AM EDT) Blue Hold Sample in lab. [facility] Blood specimen (specimen) Venous Draw / Unknown 04/08/2018 4:05 AM EDT 04/08/2018 4:21 AM EDT Apple Gutierrez MD HEMATOLOGY ORDERABLE S Performing Organization Address [facility]/[place] [address] * (ABNORMAL) Differential, Automated (04/08/2018 4:05 AM EDT) Neutrophil % 81.8 % [facility] Neutrophil Absolute 7.13(H) 1.70 - 6.10 x10(3)/mc L [facility] Lymph % 8.0 % [facility] Lymphocytes Abs 0.7(L) 0.9 - 3.2 x10(3)/[facility] Monocyte % 7.9 % [facility] Monocyte Abs 0.7 0.3 - 0.9 x10(3)/[facility] LAB[facility] Eos % 1.8 % [facility] Eosinophils Abs 0.2 0.0 - 0.4 x10(3)/[facility] Basophil % 0.2 % [facility] Baso Absolute 0.0 0.0 - 0.1 x10(3)/[facility] Immature Gran % 0.30 % [facility] Comment: Immature granulocytes(IG's)percentage and absolute count will include metamyelocytes, myelocytes, and promyelocytes. Blood smears from CBCs yielding IG's will be scanned manually for concordance. If this scan disagrees with the automated IG or if promyelocytes are noted, a manual differential will be performed. Immature Gran Absolute 0.03 0.00 - 0.04 x10(3)/[facility] Blood specimen (specimen) 04/08/2018 4:05 AM EDT 04/08/2018 4:21 AM EDT Narrative Resulting Agency Comment Spec In Lab Apple Gutierrez MD HEMATOLOGY ORDERABLE S [facility] [place] [address] * (ABNORMAL) Hemogram (04/08/2018 4:05 AM EDT) White Blood Cell 8.7 4.0 - 9.5 x10(3)/[facility] Red Blood Cell 2.26(L) 4.58 - 5.54 x10(6)/[facility] Hemoglobin 6.8(L) 13.7 - 16.5 gm/dL [facility] Hematocrit 20.4(L) 40.5 - 48.5 % [facility] Mean Cell Volume 90.3 82.9 - 93.1 fL [facility] Mean Cell Hemoglobin 30.1 27.5 - 32.1 pg [facility] Mean Cell Hemoglobin Concentration 33.3 32.0 - 35.7 gm/dL [facility] Platelet 94(L) 145 - 357 x10(3)/mc L [facility] RDW Standard Deviation 57.9(H) 36.0 - 45.0 fL [facility] RDW coefficient of variation 17.7(H) 11.4 - 13.8 % [facility] Mean Platelet Volume 9.7 7.6 - 12.9 [facility] NRBC% auto 0.0 % [facility] NRBC Absolute 0.000 0.000 - 0.000 x10(3)/mc L [facility] Blood specimen (specimen) 04/08/2018 4:05 AM EDT 04/08/2018 4:21 AM EDT Narrative Resulting Agency Comment Spec In Lab Apple Gutierrez MD HEMATOLOGY ORDERABLE S [facility] [place] [address] * (ABNORMAL) Basic Metabolic Panel (non-fasting) (04/08/2018 4:05 AM EDT) Glucose 120 65 - 199 mg/dL [facility] Comment:Diabetes: >=200 mg/d L plus symptoms Blood Urea Nitrogen 47(H) 10 - 20 mg/dL [facility] Creatinine 2.93(H) 0.80 - 1.50 mg/dL [facility] Sodium 144 135 - 145 mmol/L [facility] Potassium 5.4(H) 3.5 - 5.0 mmol/L [facility] Comment: Please note: ??Patients with WBC >100,000 may have falsely elevated Potassium levels. ??For accurate Potassium quantification in these patients send serum separator tube (gold top) for subsequent determinations. ??Contact the Clinical Chemistry Laboratory if there are any questions. Chloride 115(H) 98 - 107 mmol/L [facility] Carbon Dioxide 16(L) 22 - 31 mmol/L [facility] Anion Gap 13 5 - 15 mmol/L [facility] Calcium 7.1(L) 8.5 - 10.5 mg/dL [facility] Comment:result rechecked-KS Est Glomerular Filtration Rate 23(L) >=60 mL/min/1. 73 m?? [facility] Comment: The eGFR was calculated using the CKD-EPI equation. As with all creatinine based estimates of kidney function, eGFR values calculated with the CKD-EPI equation are not accurate in patients with acute kidney failure, extremes of body mass or the acutely ill. [email or web address] eGFR 26(L) >=60 mL/min/1. 73 m?? [facility] Comment: The eGFR was calculated using the CKD-EPI equation. As with all creatinine based estimates of kidney function, eGFR values calculated with the CKD-EPI equation are not accurate in patients with acute kidney failure, extremes of body mass or the acutely ill. [email or web address] Blood specimen (specimen) 04/08/2018 4:05 AM EDT 04/08/2018 4:21 AM EDT Narrative Resulting Agency Comment Spec In Lab Hay Sparks MD CHEMISTRY ORDERABLES [facility] [place] [address] * MRI Brain wo Contrast (04/07/2018 9:11 [...] thoracic and lumbar spine were performed at [facility] on 04/06/2018. COMPARISON: CT chest and [...] thoracic and lumbar spine were performed at [facility] on 04/06/2018. COMPARISON: CT chest and [...] Glucose, POC 136 65 - 199 mg/dL [facility] Comment: Supplemental ranges: <140 mg/dL before meals <180 mg/dL all other times of the day Blood specimen (specimen) 04/07/2018 5:56 AM EDT 04/07/2018 5:56 AM EDT Lida Peter MD POINT OF CARE TEST O RDERABLES [facility] [place] [address] * (ABNORMAL) Cardiac Enzymes (LEB/CGP) (04/07/2018 5:55 AM EDT) Troponin-T 0.15(H) 0.00 - 0.00 ng/mL [facility] Comment: The 99th percentile for Troponin T is less than 0.01 ng/mL, any detectable cTnT concentration using this assay should be considered elevated. According to the third universal definition of myocardial infarction the following criteria with a clinical presentation consistent with acute myocardial ischemia meets the diagnosis for a myocardial infarction (NM). Detection of a rise and/or fall of cTnT, with at least one value greater than the 99th percentile (> or = 0.01) and with at least one of the following ?? Symptoms of ischemia ?? New or presumed new significant [id number] wave (ST-T) changes or new left bundle [...] additional sample may be indicated. Reference: Third [place] Definition of Myocardial Infarction. Journal of the [place] [employer] 2012;60:1581-98 Creatine Kinase 700(H) 0 - 200 unit/L [facility] Blood specimen (specimen) 04/07/2018 5:55 AM EDT 04/07/2018 6:34 AM EDT Narrative Resulting Agency Comment Spec In Lab Lida Peter MD CHEMISTRY ORDERABLES Performing Organization Address [facility]/ZIP Co de Phone Number [facility] [place] [address] * (ABNORMAL) CK (04/07/2018 5:55 AM EDT) Creatine Kinase 699(H) 0 - 200 unit/L [facility] Blood specimen (specimen) 04/07/2018 5:55 AM EDT 04/07/2018 6:03 AM EDT Narrative Resulting Agency Comment Spec In Lab Lida Peter MD CHEMISTRY ORDERABLES Performing Organization Address City/[facility]/ZIP Co de Phone Number [facility] [place] [address] * (ABNORMAL) Hemoglobin and Hematocrit, blood (04/07/2018 5:55 AM EDT) Hemoglobin 7.2(L) 13.7 - 16.5 gm/dL [facility] Hematocrit 21.2(L) 40.5 - 48.5 % [facility] Blood specimen (specimen) 04/07/2018 5:55 AM EDT 04/07/2018 6:03 AM EDT Narrative Resulting Agency Comment Spec In Lab Lida Peter MD HEMATOLOGY ORDERABLE S [facility] [place] [address] * Lactate, whole blood, send to lab (Leb/CGP) (04/07/2018 5:55 AM EDT) Pathologist [facility] Lactate WB 1.2 0.5 - 2.2 mmol/L [facility] Blood specimen (specimen) 04/07/2018 5:55 AM EDT 04/07/2018 6:03 AM EDT Narrative Resulting Agency Comment Spec In Lab Lida ePter MD CHEMISTRY ORDERABLES Performing Organization Address [facility]/ZIP Co de Phone Number [facility] [place] [address] * (ABNORMAL) Basic Metabolic Panel (non-fasting) (04/07/2018 4:30 AM EDT) [facility] Glucose 124 65 - 199 mg/dL [facility] Comment:Diabetes: >=200 mg/d L plus symptoms Blood Urea Nitrogen 50(H) 10 - 20 mg/dL [facility] Creatinine 2.68(H) 0.80 - 1.50 mg/dL [facility] Sodium 143 135 - 145 mmol/L [facility] Potassium 5.4(H) 3.5 - 5.0 mmol/L [facility] Comment: Please note: ??Patients with WBC >100,000 may have falsely elevated Potassium levels. ??For accurate Potassium quantification in these patients send serum separator tube (gold top) for subsequent determinations. ??Contact the Clinical Chemistry Laboratory if there are any questions. Chloride 116(H) 98 - 107 mmol/L [facility] Carbon Dioxide 16(L) 22 - 31 mmol/L [facility] Anion Gap 11 5 - 15 mmol/L [facility] Calcium 7.0(L) 8.5 - 10.5 mg/dL [facility] Est Glomerular Filtration Rate 25(L) >=60 mL/min/1. 73 m?? [facility] Comment: The eGFR was calculated using the CKD-EPI equation. As with all creatinine based estimates of kidney function, eGFR values calculated with the CKD-EPI equation are not accurate in patients with acute kidney failure, extremes of body mass or the acutely ill. [email or web address]Ankf eGFR 29(L) >=60 mL/min/1. 73 m?? [facility] Comment: The eGFR was calculated using the CKD-EPI equation. As with all creatinine based estimates of kidney function, eGFR values calculated with the CKD-EPI equation are not accurate in patients with acute kidney failure, extremes of body mass or the acutely ill. [email or web address]kf Blood specimen (specimen) 04/07/2018 4:30 AM EDT 04/07/2018 4:34 AM EDT Narrative Resulting Agency Comment Spec In Lab Lida Peter MD CHEMISTRY ORDERABLES Performing Organization Address [facility] Co de Phone Number [facility] [place] [address] * POCT Glucose (04/07/2018 3:35 AM EDT) Pathologist [facility] Glucose, POC 131 65 - 199 mg/dL [facility] Comment: Supplemental ranges: <140 mg/dL before meals <180 mg/dL all other times of the day Blood specimen (specimen) 04/07/2018 3:35 AM EDT 04/07/2018 3:35 AM EDT Lida Peter MD POINT OF CARE TEST O RDERABLES Performing Organization Address [facility] Co de Phone Number [facility] [place] [address] * Lactate, whole blood, send to lab (Leb/CGP) (04/07/2018 12:15 AM EDT) Pathologist [facility] Lactate WB 1.5 0.5 - 2.2 mmol/L [facility] Blood specimen (specimen) 04/07/2018 12:15 AM EDT 04/07/2018 12:21 AM EDT Narrative Resulting Agency Comment Spec In Lab Lida Peter MD CHEMISTRY ORDERABLES Performing Organization Address [facility]/ZIP Co de Phone Number [facility] [place] [address] * (ABNORMAL) CK (04/07/2018 12:15 AM EDT) Creatine Kinase 608(H) 0 - 200 unit/L [facility] Comment:result rechecked-RR Blood specimen (specimen) 04/07/2018 12:15 AM EDT 04/07/2018 12:21 AM EDT Narrative Resulting Agency Comment Spec In Lab Lida Peter MD CHEMISTRY ORDERABLES Performing Organization Address [facility]/ZIP Co de Phone Number [facility] [place] [address] * (ABNORMAL) Hemoglobin and Hematocrit, blood (04/07/2018 12:15 AM EDT) Hemoglobin 7.9(L) 13.7 - 16.5 gm/dL [facility] Hematocrit 23.1(L) 40.5 - 48.5 % [facility] Blood specimen (specimen) 04/07/2018 12:15 AM EDT 04/07/2018 12:21 AM EDT Narrative Resulting Agency Comment Spec In Lab Lida Peter MD HEMATOLOGY ORDERABLE S Performing Organization Address [facility]/ZIP Co de Phone Number [facility] [place] [address] * (ABNORMAL) Basic Metabolic Panel (non-fasting) (04/07/2018 12:15 AM EDT) Glucose 167 65 - 199 mg/dL [facility] Comment:Diabetes: >=200 mg/d L plus symptoms Blood Urea Nitrogen 48(H) 10 - 20 mg/dL [facility] Creatinine 2.58(H) 0.80 - 1.50 mg/dL [facility] Sodium 143 135 - 145 mmol/L [facility] Potassium 6.1(Criti constance) 3.5 - 5.0 mmol/L [facility] Comment: Called by: RUPINDER, Read back by: EVELIN CALLEJAS, Date/Time:04/07/18 01:06. Please note: ??Patients with WBC >100,000 may have falsely elevated Potassium levels. ??For accurate Potassium quantification in these patients send serum separator tube (gold top) for subsequent determinations. ??Contact the Clinical Chemistry Laboratory if there are any questions. Chloride 117(H) 98 - 107 mmol/L [facility] Carbon Dioxide 15(L) 22 - 31 mmol/L [facility] Anion Gap 11 5 - 15 mmol/L [facility] Calcium 6.8(Criti constance) 8.5 - 10.5 mg/dL [facility] Comment:Called by: RUPINDER, Read back by: EVELIN CALLEJAS, Date/Time:04/07/18 01:06. Est Glomerular Filtration Rate 27(L) >=60 mL/min/1. 73 m?? [facility] Comment: The eGFR was calculated using the CKD-EPI equation. As with all creatinine based estimates of kidney function, eGFR values calculated with the CKD-EPI equation are not accurate in patients with acute kidney failure, extremes of body mass or the acutely ill. [email or web address]Ankf eGFR 31(L) >=60 mL/min/1. 73 m?? [facility] Comment: The eGFR was calculated using the CKD-EPI equation. As with all creatinine based estimates of kidney function, eGFR values calculated with the CKD-EPI equation are not accurate in patients with acute kidney failure, extremes of body mass or the acutely ill. [email or web address] Blood specimen (specimen) 04/07/2018 12:15 AM EDT 04/07/2018 12:21 AM EDT Narrative Resulting Agency Comment Spec In Lab Lida Peter MD CHEMISTRY ORDERABLES Performing Organization Address [facility] Co de Phone Number [facility] [place] [address] * POCT Glucose (04/06/2018 8:30 PM EDT) Glucose, POC 177 65 - 199 mg/dL [facility] Comment: Supplemental ranges: <140 mg/dL before meals <180 mg/dL all other times of the day Blood specimen (specimen) 04/06/2018 8:30 PM EDT 04/06/2018 8:30 PM EDT Lida Peter MD POINT OF CARE TEST O RDERABLES Performing Organization Address [facility] Co de Phone Number [facility] [place] [address] * Request For 2nd Read CT Chest [...] the chest, abdomen, and pelvis performed at [facility] on 04/06/2018. 5 mm and 1 mm [...] Spleen: Normal. Kidneys/Adrenals: The RIGHT and LEFT [place] kidneys are severely atrophic. The patient status [...] chest, abdomen, and pelvis performed at an [facility] on 04/06/2018. 5 mm and 1 [...] Spleen: Normal. Kidneys/Adrenals: The RIGHT and LEFT [place] kidneys are severely atrophic.The patient status post [...] 5:40 PM EDT) Neutrophil % 85.6 % [facility] Neutrophil Absolute 7.32(H) 1.70 - 6.10 x10(3)/mc L [facility] Lymph % 4.8 % [facility] Lymphocytes Abs 0.4(L) 0.9 - 3.2 x10(3)/mc L [facility] Monocyte % 9.1 % [facility] Monocyte Abs 0.8 0.3 - 0.9 x10(3)/mc L [facility] Eos % 0.0 % [facility] Eosinophils Abs 0.0 0.0 - 0.4 x10(3)/mc L [facility] Basophil % 0.0 % [facility] [facility] Baso Absolute 0.0 0.0 - 0.1 x10(3)/mc L [facility] Immature Gran % 0.50 % [facility] Comment: Immature granulocytes(IG's)percentage and absolute count will include metamyelocytes, myelocytes, and promyelocytes. Blood smears from CBCs yielding IG's will be scanned manually for concordance. If this scan disagrees with the automated IG or if promyelocytes are noted, a manual differential will be performed. Immature Gran Absolute 0.04 0.00 - 0.04 x10(3)/[facility] LABORATORY Blood specimen (specimen) 04/06/2018 5:40 PM EDT 04/06/2018 6:01 PM EDT Narrative Resulting Agency Comment Spec In Lab Natalya Minaya MD HEMATOLOGY ORDERABLE S [facility] [place] [address] * (ABNORMAL) Hemogram (04/06/2018 5:40 PM EDT) White Blood Cell 8.6 4.0 - 9.5 x10(3)/[facility] LABORATORY Red Blood Cell 2.56(L) 4.58 - 5.54 x10(6)/[facility] LABORATORY Hemoglobin 7.8(L) 13.7 - 16.5 gm/dL [facility] Hematocrit 23.1(L) 40.5 - 48.5 % [facility] Mean Cell Volume 90.2 82.9 - 93.1 fL [facility] Mean Cell Hemoglobin 30.5 27.5 - 32.1 pg [facility] Mean Cell Hemoglobin Concentration 33.8 32.0 - 35.7 gm/dL [facility] Platelet 95(L) 145 - 357 x10(3)/[facility] LABORATORY RDW Standard Deviation 53.6(H) 36.0 - 45.0 [facility] LABORATORY RDW coefficient of variation 16.6(H) 11.4 - 13.8 % [facility] Mean Platelet Volume 9.5 7.6 - 12.9 fL [facility] NRBC% auto 0.0 % [facility] NRBC Absolute 0.000 0.000 - 0.000 x10(3)/[facility] LABORATORY Blood specimen (specimen) 04/06/2018 5:40 PM EDT 04/06/2018 6:01 PM EDT Narrative Resulting Agency Comment Spec In Lab Natalya Minaya MD HEMATOLOGY ORDERABLE S Performing Organization Address [facility] Co de Phone Number [facility] [place] [address] * Phosphorus (04/06/2018 5:40 PM EDT) Phosphorus 3.3 2.5 - 4.5 mg/dL [facility] Blood specimen (specimen) 04/06/2018 5:40 PM EDT 04/06/2018 6:01 PM EDT Narrative Resulting Agency Comment Spec In Lab Lida Peter MD CHEMISTRY ORDERABLES Performing Organization Address [facility] Phone Number [facility] [place] [address] * (ABNORMAL) Magnesium (04/06/2018 5:40 PM EDT) [facility] Magnesium 0.60(L) 0.69 - 1.07 mmol/L [facility] Blood specimen (specimen) 04/06/2018 5:40 PM EDT 04/06/2018 6:01 PM EDT Narrative Resulting Agency Comment Spec In Lab Lida Peter MD CHEMISTRY ORDERABLES Performing Organization Address [facility] de Phone Number [facility] [place] [address] * (ABNORMAL) Cardiac Enzymes (LEB/CGP) (04/06/2018 5:40 PM EDT) Pathologist [facility] Troponin-T 0.20(H) 0.00 - 0.00 ng/mL [facility] Comment: The 99th percentile for Troponin T is less than 0.01 ng/mL, any detectable cTnT concentration using this assay should be considered elevated. According to the third universal definition of myocardial infarction the following criteria with a clinical presentation consistent with acute myocardial ischemia meets the diagnosis for a myocardial infarction (NM). Detection of a rise and/or fall of cTnT, with at least one value greater than the 99th percentile (> or = 0.01) and with at least one of the following ?? Symptoms of ischemia ?? New or presumed new significant [id number] wave (ST-T) changes or new left bundle [...] additional sample may be indicated. Reference: Third [place] Definition of Myocardial Infarction. Journal of the [place] [employer] 2012;60:1581-98 Creatine Kinase 249(H) 0 - 200 unit/L [facility] Blood specimen (specimen) 04/06/2018 5:40 PM EDT 04/06/2018 6:01 PM EDT Narrative Resulting Agency Comment Spec In Lab Lida Peter MD CHEMISTRY ORDERABLES [facility] [place] [address] * (ABNORMAL) CMP w/fasting Glucose (04/06/2018 5:40 PM EDT) Glucose Fasting 140(H) 65 - 99 mg/dL [facility] Comment: ?Fasting* Glucose Interpretive Criteria [...] of Diabetes Mellitus, Position Statement from the [place] [employer]. ??Diabetes Care, Volume 33, Supplement 1, Jul 2009 Blood Urea Nitrogen 45(H) 10 - 20 mg/dL [facility] Creatinine 2.48(H) 0.80 - 1.50 mg/dL [facility] Sodium 145 135 - 145 mmol/L [facility] Potassium 5.2(H) 3.5 - 5.0 mmol/L [facility] Comment: Please note: ??Patients with WBC >100,000 may have falsely elevated Potassium levels. ??For accurate Potassium quantification in these patients send serum separator tube (gold top) for subsequent determinations. ??Contact the Clinical Chemistry Laboratory if there are any questions. Chloride 118(H) 98 - 107 mmol/L [facility] Carbon Dioxide 16(L) 22 - 31 mmol/L [facility] Anion Gap 11 5 - 15 mmol/L [facility] Calcium 6.7(Criti constance) 8.5 - 10.5 mg/dL [facility] Comment:Calcium not critical when adjusted for albumin concentration. Protein, Total 4.3(L) 6.1 - 8.0 gm/dL [facility] Albumin 2.3(L) 3.2 - 5.2 gm/dL [facility] Aspartate Aminotransferase 22 0 - 39 unit/L [facility] Alanine Aminotransferase 20 0 - 55 unit/L [facility] Alkaline Phosphatase 57 40 - 120 unit/L [facility] Bilirubin, Total 0.3 0.2 - 1.3 mg/dL [facility] Est Glomerular Filtration Rate 28(L) >=60 mL/min/1. 73 m?? [facility] Comment: The eGFR was calculated using the CKD-EPI equation. As with all creatinine based estimates of kidney function, eGFR values calculated with the CKD-EPI equation are not accurate in patients with acute kidney failure, extremes of body mass or the acutely ill. [email or web address] eGFR 32(L) >=60 mL/min/1. 73 m?? [facility] Comment: The eGFR was calculated using the CKD-EPI equation. As with all creatinine based estimates of kidney function, eGFR values calculated with the CKD-EPI equation are not accurate in patients with acute kidney failure, extremes of body mass or the acutely ill. [email or web address] Blood specimen (specimen) 04/06/2018 5:40 PM EDT 04/06/2018 6:01 PM EDT Narrative Resulting Agency Comment Spec In Lab Lida Peter MD CHEMISTRY ORDERABLES Performing Organization Address [facility] Co de Phone Number [facility] [place] [address] * APTT (04/06/2018 5:40 PM EDT) Partial Thromboplastin Time 30 25 - 37 sec [facility] Comment: The PTT is NOT appropriate for heparin monitoring. Use the Anti-Xa level for heparin monitoring (HEP UFH) or LMWH monitoring (HEP LMW). A PTT less than 37 seconds generally indicates adequate hemostasis. Blood specimen (specimen) 04/06/2018 5:40 PM EDT 04/06/2018 6:01 PM EDT Narrative Resulting Agency Comment Spec In Lab Lida Peter MD HEMATOLOGY ORDERABLE S Performing Organization Address [facility] Co de Phone Number [facility] [place] [address] * (ABNORMAL) Prothrombin Time (04/06/2018 5:40 PM EDT) Prothrombin Time 24.1(H) 9.4 - 12.5 sec [facility] International Normalization Ratio 2.2 [facility] Comment: An INR <2.0 indicates [...] Lab Lida Peter MD HEMATOLOGY ORDERABLE S [facility] [place] [address] * (ABNORMAL) BLOOD GAS 2 ARTERIAL (04/06/2018 5:24 PM EDT) pH, Arterial 7.29(Crit ical) 7.35 - 7.45 [facility] Comment:Noted by stringed instrument tuner. PCO2, Arterial 31(L) 35 - 45 mmHg [facility] PO2, Arterial 65(L) 85 - 104 mmHg [facility] Bicarbonate, Arterial 15.2(L) 20.0 - 26.0 mmol/L [facility] Base Excess, Arterial -11.8(L) -3.0 - 3.0 mmol/L [facility] Hgb Blood Gas 8.4(L) 13.7 - 16.5 gm/dL [facility] Oxyhemoglobin, Arterial 93.0(L) 94.0 - 97.0 % [facility] Carboxyhemoglo bin, Arterial 0.3 % [facility] Comment: Nonsmokers: 0.5-1.5% COHB Smokers: Variable, but usually less than 10% Toxic: 20-30% COHB Lethal: Greater than 60% COHB Methemoglobin, Arterial 0.9 <=1.5 % [facility] Na Whole Blood 140 135 - 145 mmol/L [facility] K Whole Blood 5.0 3.5 - 5.0 mmol/L [facility] Comment: Please note: Patients with WBC >100,000 may have falsely elevated Potassium levels. Contact the Clinical Chemistry Laboratory if there are any questions. ICa Whole Blood 1.03(L) 1.15 - 1.33 mmol/L [facility] Comment: Note: ??Total bilirubin higher than 20 mg/dL may lead to falsely low ionized calcium. CL Whole Blood 119(H) 98 - 107 mmol/L [facility] Gluc Whole Bld 141 65 - 199 mg/dL [facility] Comment:Diabetes: >=200 mg/d L plus symptoms. Lactate WB 2.4(H) 0.5 - 2.2 mmol/L [facility] FIO2 Art 50 % [facility] PF Ratio Art 130 [facility] Temp Art 34.8 Celsius [facility] Blood specimen (specimen) 04/06/2018 5:24 PM EDT 04/06/2018 5:24 PM EDT Lida Peter MD POINT OF CARE TEST O RDERAMARISOL Performing Organization Address [facility] Co de Phone Number [facility] [place] [address] * POCT Glucose (04/06/2018 5:10 PM EDT) Glucose, POC 147 65 - 199 mg/dL [facility] Comment: Supplemental ranges: <140 mg/dL before meals <180 mg/dL all other times of the day Blood specimen (specimen) 04/06/2018 5:10 PM EDT 04/06/2018 5:10 PM EDT Lida Peter MD POINT OF CARE TEST O RDERAMAIRSOL Performing Organization Address [facility]/ZIP Co de Phone Number [facility] [place] [address] * (ABNORMAL) BLOOD GAS 2 ARTERIAL (04/06/2018 4:04 PM EDT) pH, Arterial 7.27(Criti constance) 7.35 - 7.45 [facility] Comment:Noted by stringed instrument tuner. PCO2, Arterial 34(L) 35 - 45 mmHg [facility] PO2, Arterial 152(H) 85 - 104 mmHg [facility] Bicarbonate, Arterial 15.2(L) 20.0 - 26.0 mmol/L [facility] Base Excess, Arterial -11.8(L) -3.0 - 3.0 mmol/L [facility] Hgb Blood Gas 8.1(L) 13.7 - 16.5 gm/dL [facility] Oxyhemoglobin, Arterial 97.7(H) 94.0 - 97.0 % [facility] Carboxyhemoglob in, Arterial 0.5 % [facility] Comment: Nonsmokers: 0.5-1.5% COHB Smokers: Variable, but usually less than 10% Toxic: 20-30% COHB Lethal: Greater than 60% COHB Methemoglobin, Arterial 0.3 <=1.5 % [facility] Na Whole Blood 140 135 - 145 mmol/L [facility] K Whole Blood 4.6 3.5 - 5.0 mmol/L [facility] Comment: Please note: Patients with WBC >100,000 may have falsely elevated Potassium levels. Contact the Clinical Chemistry Laboratory if there are any questions. ICa Whole Blood 1.01(L) 1.15 - 1.33 mmol/L [facility] Comment: Note: ??Total bilirubin higher than 20 mg/dL may lead to falsely low ionized calcium. CL Whole Blood 118(H) 98 - 107 mmol/L [facility] Gluc Whole Bld 137 65 - 199 mg/dL [facility] Comment:Diabetes: >=200 mg/d L plus symptoms. Lactate WB 3.1(H) 0.5 - 2.2 mmol/L [facility] Blood specimen (specimen) 04/06/2018 4:04 PM EDT 04/06/2018 4:04 PM EDT Lida Peter MD POINT OF CARE TEST O RDERABLES [facility] [place] [address] * Scan, Peripheral Blood (04/06/2018 3:53 PM EDT) Pathologist [facility] Plat estimate Decreased [facility] RBC Morphology Abnormal [facility] Ovalocytes 1-5 /HPF [facility] Yovanny Cells 1-5 /HPF [facility] Blood specimen (specimen) 04/06/2018 3:53 PM EDT 04/06/2018 4:05 PM EDT Narrative Resulting Agency Comment Spec In Lab Lida Peter MD HEMATOLOGY ORDERABLE S [facility] [place] [address] * (ABNORMAL) Differential, Automated (04/06/2018 3:53 PM EDT) Pathologist [facility] Neutrophil % 80.4 % [facility] Neutrophil Absolute 8.28(H) 1.70 - 6.10 x10(3)/mc L [facility] Lymph % 6.8 % [facility] Lymphocytes Abs 0.7(L) 0.9 - 3.2 x10(3)/mc L [facility] Monocyte % 11.9 % [facility] Monocyte Abs 1.2(H) 0.3 - 0.9 x10(3)/mc L [facility] Eos % 0.0 % [facility] Eosinophils Abs 0.0 0.0 - 0.4 x10(3)/mc L [facility] Basophil % 0.1 % [facility] Baso Absolute 0.0 0.0 - 0.1 x10(3)/mc L [facility] Immature Gran % 0.80 % [facility] Comment: Immature granulocytes(IG's)percentage and absolute count will include metamyelocytes, myelocytes, and promyelocytes. Blood smears from CBCs yielding IG's will be scanned manually for concordance. If this scan disagrees with the automated IG or if promyelocytes are noted, a manual differential will be performed. Immature Gran Absolute 0.08(H) 0.00 - 0.04 x10(3)/mc L [facility] Blood specimen (specimen) 04/06/2018 3:53 PM EDT 04/06/2018 4:05 PM EDT Narrative Resulting Agency Comment Spec In Lab Lida Peter MD HEMATOLOGY ORDERABLE S [facility] [place] [address] * (ABNORMAL) Hemogram (04/06/2018 3:53 PM EDT) White Blood Cell 10.3(H) 4.0 - 9.5 x10(3)/mc L [facility] Red Blood Cell 2.53(L) 4.58 - 5.54 x10(6)/ L [facility] Hemoglobin 7.7(L) 13.7 - 16.5 gm/dL [facility] Comment: This result has been called to MISAEL GRANT by Evon Woodard on 04 06 2018 at 1633, and has been read back. Hematocrit 23.2(L) 40.5 - 48.5 % [facility] Comment: This result has been called to MISAEL GRANT by Evon Woodard on 04 06 2018 at 1633, and has been read back. Mean Cell Volume 91.7 82.9 - 93.1 fL [facility] Mean Cell Hemoglobin 30.4 27.5 - 32.1 pg [facility] Mean Cell Hemoglobin Concentration 33.2 32.0 - 35.7 gm/dL [facility] Platelet 96(L) 145 - 357 x10(3)/mc L [facility] RDW Standard Deviation 53.3(H) 36.0 - 45.0 fL [facility] RDW coefficient of variation 16.2(H) 11.4 - 13.8 % [facility] Mean Platelet Volume 9.0 7.6 - 12.9 fL [facility] NRBC% auto 0.0 % [facility] NRBC Absolute 0.000 0.000 - 0.000 x10(3)/mc L [facility] Blood specimen (specimen) 04/06/2018 3:53 PM EDT 04/06/2018 4:05 PM EDT Narrative Resulting Agency Comment Spec In Lab Lida Peter MD HEMATOLOGY ORDERABLE S Performing Organization Address [facility] Co de Phone Number [facility] [place] [address] * APTT (04/06/2018 3:53 PM EDT) Partial Thromboplastin Time 30 25 - 37 sec [facility] Comment: The PTT is NOT appropriate for heparin monitoring. Use the Anti-Xa level for heparin monitoring (HEP UFH) or LMWH monitoring (HEP LMW). A PTT less than 37 seconds generally indicates adequate hemostasis. Blood specimen (specimen) 04/06/2018 3:53 PM EDT 04/06/2018 4:05 PM EDT Narrative Resulting Agency Comment Spec In Lab Lida Peter MD HEMATOLOGY ORDERABLE S Performing Organization Address [facility] de Phone Number [facility] [place] [address] * (ABNORMAL) Prothrombin Time (04/06/2018 3:53 PM EDT) Prothrombin Time 22.5(H) 9.4 - 12.5 sec [facility] Comment:Called by: luisa, Read back by: donn thomas, Date/Time:04/06/18 16:20. International Normalization Ratio 2.0 [facility] Comment: An INR <2.0 indicates [...] Lab Lida Peter MD HEMATOLOGY ORDERABLE S [facility] [place] [address] * (ABNORMAL) BLOOD GAS 2 ARTERIAL (04/06/2018 3:41 PM EDT) pH, Arterial 7.22(Criti constance) 7.35 - 7.45 [facility] Comment:Noted by stringed instrument tuner. PCO2, Arterial 39 35 - 45 mmHg [facility] PO2, Arterial 168(H) 85 - 104 mmHg [facility] Bicarbonate, Arterial 15.3(L) 20.0 - 26.0 mmol/L [facility] Base Excess, Arterial -12.4(L) -3.0 - 3.0 mmol/L [facility] Hgb Blood Gas 8.4(L) 13.7 - 16.5 gm/dL [facility] Oxyhemoglobin, Arterial 98.1(H) 94.0 - 97.0 % [facility] Carboxyhemoglob in, Arterial 0.2 % [facility] Comment: Nonsmokers: 0.5-1.5% COHB Smokers: Variable, but usually less than 10% Toxic: 20-30% COHB Lethal: Greater than 60% COHB Methemoglobin, Arterial 0.3 <=1.5 % [facility] Na Whole Blood 143 135 - 145 mmol/L [facility] K Whole Blood 4.6 3.5 - 5.0 mmol/L [facility] Comment: Please note: Patients with WBC >100,000 may have falsely elevated Potassium levels. Contact the Clinical Chemistry Laboratory if there are any questions. ICa Whole Blood 0.92(Criti constance) 1.15 - 1.33 mmol/L [facility] Comment: Noted by stringed instrument tuner. Note: ??Total bilirubin higher than 20 mg/dL may lead to falsely low ionized calcium. CL Whole Blood 119(H) 98 - 107 mmol/L [facility] Gluc Whole Bld 158 65 - 199 mg/dL [facility] Comment:Diabetes: >=200 mg/d L plus symptoms. Lactate WB 3.2(H) 0.5 - 2.2 mmol/L [facility] Blood specimen (specimen) 04/06/2018 3:41 PM EDT 04/06/2018 3:41 PM EDT Lida Peter MD POINT OF CARE TEST O RDERABLES [facility] [place] [address] * (ABNORMAL) BLOOD GAS 2 ARTERIAL (04/06/2018 3:13 PM EDT) pH, Arterial 7.18(Criti constance) 7.35 - 7.45 [facility] Comment:Noted by stringed instrument tuner. PCO2, Arterial 40 35 - 45 mmHg [facility] PO2, Arterial 228(H) 85 - 104 mmHg [facility] Bicarbonate, Arterial 14.8(L) 20.0 - 26.0 mmol/L [facility] Base Excess, Arterial -13.5(L) -3.0 - 3.0 mmol/L [facility] Hgb Blood Gas 9.4(L) 13.7 - 16.5 gm/dL [facility] Oxyhemoglobin, Arterial 98.3(H) 94.0 - 97.0 % [facility] Carboxyhemoglob in, Arterial 0.3 % [facility] Comment: Nonsmokers: 0.5-1.5% COHB Smokers: Variable, but usually less than 10% Toxic: 20-30% COHB Lethal: Greater than 60% COHB Methemoglobin, Arterial 0.3 <=1.5 % [facility] Na Whole Blood 141 135 - 145 mmol/L [facility] K Whole Blood 4.8 3.5 - 5.0 mmol/L [facility] Comment: Please note: Patients with WBC >100,000 may have falsely elevated Potassium levels. Contact the Clinical Chemistry Laboratory if there are any questions. ICa Whole Blood 1.12(L) 1.15 - 1.33 mmol/L [facility] Comment: Note: ??Total bilirubin higher than 20 mg/dL may lead to falsely low ionized calcium. CL Whole Blood 120(H) 98 - 107 mmol/L [facility] Gluc Whole Bld 125 65 - 199 mg/dL [facility] Comment:Diabetes: >=200 mg/d L plus symptoms. Lactate WB 2.8(H) 0.5 - 2.2 mmol/L [facility] Blood specimen (specimen) 04/06/2018 3:13 PM EDT 04/06/2018 3:13 PM EDT Lida Peter MD POINT OF CARE TEST O RDERABLES Performing Organization Address City/State/[facility] Co de Phone Number [facility] [place] [address] * (ABNORMAL) BLOOD GAS 2 ARTERIAL (04/06/2018 2:48 PM EDT) pH, Arterial 7.27(Criti constance) 7.35 - 7.45 [facility] Comment:Noted by stringed instrument tuner. PCO2, Arterial 36 35 - 45 mmHg [facility] PO2, Arterial 379(H) 85 - 104 mmHg [facility] Bicarbonate, Arterial 16.1(L) 20.0 - 26.0 mmol/L [facility] Base Excess, Arterial -10.8(L) -3.0 - 3.0 mmol/L [facility] Hgb Blood Gas 9.7(L) 13.7 - 16.5 gm/dL [facility] Oxyhemoglobin, Arterial 98.5(H) 94.0 - 97.0 % [facility] Carboxyhemoglob in, Arterial 0.3 % [facility] Comment: Nonsmokers: 0.5-1.5% COHB Smokers: Variable, but usually less than 10% Toxic: 20-30% COHB Lethal: Greater than 60% COHB Methemoglobin, Arterial 0.3 <=1.5 % [facility] Na Whole Blood 142 135 - 145 mmol/L [facility] K Whole Blood 5.4(H) 3.5 - 5.0 mmol/L [facility] Comment: Please note: Patients with WBC >100,000 may have falsely elevated Potassium levels. Contact the Clinical Chemistry Laboratory if there are any questions. ICa Whole Blood 1.10(L) 1.15 - 1.33 mmol/L [facility] Comment: Note: ??Total bilirubin higher than 20 mg/dL may lead to falsely low ionized calcium. CL Whole Blood 117(H) 98 - 107 mmol/L [facility] Gluc Whole Bld 185 65 - 199 mg/dL [facility] Comment:Diabetes: >=200 mg/d L plus symptoms. Lactate WB 1.9 0.5 - 2.2 mmol/L [facility] Blood specimen (specimen) 04/06/2018 2:48 PM EDT 04/06/2018 2:48 PM EDT Lida Peter MD POINT OF CARE TEST O RDERABLES [facility] [place] [address] * (ABNORMAL) BLOOD GAS 2 ARTERIAL (04/06/2018 2:46 PM EDT) pH, Arterial 7.27(Criti constance) 7.35 - 7.45 [facility] Comment:Noted by stringed instrument tuner. PCO2, Arterial 36 35 - 45 mmHg [facility] PO2, Arterial Not Perf 85 - 104 mmHg [facility] Bicarbonate, Arterial 16.2(L) 20.0 - 26.0 mmol/L [facility] Base Excess, Arterial -10.7(L) -3.0 - 3.0 mmol/L [facility] Hgb Blood Gas 9.3(L) 13.7 - 16.5 gm/dL [facility] Oxyhemoglobin, Arterial 98.9(H) 94.0 - 97.0 % [facility] Carboxyhemoglob in, Arterial 0.3 % [facility] Comment: Nonsmokers: 0.5-1.5% COHB Smokers: Variable, but usually less than 10% Toxic: 20-30% COHB Lethal: Greater than 60% COHB Methemoglobin, Arterial 0.3 <=1.5 % [facility] Na Whole Blood 143 135 - 145 mmol/L [facility] K Whole Blood 5.5(H) 3.5 - 5.0 mmol/L [facility] Comment: Please note: Patients with WBC >100,000 may have falsely elevated Potassium levels. Contact the Clinical Chemistry Laboratory if there are any questions. ICa Whole Blood 1.09(L) 1.15 - 1.33 mmol/L [facility] Comment: Note: ??Total bilirubin higher than 20 mg/dL may lead to falsely low ionized calcium. CL Whole Blood 118(H) 98 - 107 mmol/L [facility] Gluc Whole Bld 191 65 - 199 mg/dL [facility] Comment:Diabetes: >=200 mg/d L plus symptoms. Lactate WB 1.8 0.5 - 2.2 mmol/L [facility] Blood specimen (specimen) 04/06/2018 2:46 PM EDT 04/06/2018 2:46 PM EDT Lida Peter MD POINT OF CARE TEST O RDERABLES [facility] [place] [address] * (ABNORMAL) BLOOD GAS 2 ARTERIAL (04/06/2018 2:16 PM EDT) pH, Arterial 7.29(Criti constance) 7.35 - 7.45 [facility] Comment:Noted by stringed instrument tuner. PCO2, Arterial 38 35 - 45 mmHg [facility] PO2, Arterial 423(H) 85 - 104 mmHg [facility] Bicarbonate, Arterial 17.9(L) 20.0 - 26.0 mmol/L [facility] Base Excess, Arterial -8.6(L) -3.0 - 3.0 mmol/L [facility] Hgb Blood Gas 9.7(L) 13.7 - 16.5 gm/dL [facility] Oxyhemoglobin, Arterial 98.7(H) 94.0 - 97.0 % [facility] Carboxyhemoglob in, Arterial 0.3 % [facility] Comment: Nonsmokers: 0.5-1.5% COHB Smokers: Variable, but usually less than 10% Toxic: 20-30% COHB Lethal: Greater than 60% COHB Methemoglobin, Arterial 0.3 <=1.5 % [facility] Na Whole Blood 137 135 - 145 mmol/L [facility] K Whole Blood 6.5(Critic al) 3.5 - 5.0 mmol/L [facility] Comment: Noted by stringed instrument tuner. Please note: Patients with WBC >100,000 may have falsely elevated Potassium levels. Contact the Clinical Chemistry Laboratory if there are any questions. ICa Whole Blood 1.06(L) 1.15 - 1.33 mmol/L [facility] Comment: Note: ??Total bilirubin higher than 20 mg/dL may lead to falsely low ionized calcium. CL Whole Blood 117(H) 98 - 107 mmol/L [facility] Gluc Whole Bld 261(H) 65 - 199 mg/dL [facility] Comment:Diabetes: >=200 mg/d L plus symptoms. Lactate WB 1.1 0.5 - 2.2 mmol/L [facility] Blood specimen (specimen) 04/06/2018 2:16 PM EDT 04/06/2018 2:16 PM EDT Lida Peter MD POINT OF CARE TEST O RDERABLES Performing Organization Address [facility] Co de Phone Number [facility] [place] [address] * Anaerobic Culture (04/06/2018 2:15 PM EDT) Anaerobic Culture No anaerobic organisms isolated [facility] Fluid specimen (specimen) 04/06/2018 2:15 PM EDT 04/06/2018 2:34 PM EDT Comment:CULTURE LEFT ARM WOU ND Narrative Resulting Agency Comment Spec In Lab Lida Peter MD MICROBIOLOGY - GENER AL ORDERABLES Performing Organization Address [facility] Co de Phone Number [facility] [place] [address] * Body Fluid Culture, Aerobic (04/06/2018 2:15 PM EDT) Body Fluid Culture Few normal cutaneous shaina [facility] Gram Stain Few Neutrophils seen No microorganisms seen. [facility] Fluid specimen (specimen) 04/06/2018 2:15 PM EDT 04/06/2018 2:34 PM EDT Comment:CULTURE LEFT ARM WOU ND Narrative Resulting Agency Comment Spec In Lab Lida Peter MD MICROBIOLOGY - GENER AL ORDERABLES Performing Organization Address [facility] Co de Phone Number [facility] [place] [address] * (ABNORMAL) BLOOD GAS 2 ARTERIAL (04/06/2018 1:53 PM EDT) pH, Arterial 7.24(Criti constance) 7.35 - 7.45 [facility] Comment:Noted by stringed instrument tuner. PCO2, Arterial 38 35 - 45 mmHg [facility] PO2, Arterial 388(H) 85 - 104 mmHg [facility] Bicarbonate, Arterial 15.7(L) 20.0 - 26.0 mmol/L [facility] Base Excess, Arterial -11.8(L) -3.0 - 3.0 mmol/L [facility] Hgb Blood Gas 10.8(L) 13.7 - 16.5 gm/dL [facility] Oxyhemoglobin, Arterial 98.8(H) 94.0 - 97.0 % [facility] Carboxyhemoglob in, Arterial 0.3 % [facility] Comment: Nonsmokers: 0.5-1.5% COHB Smokers: Variable, but usually less than 10% Toxic: 20-30% COHB Lethal: Greater than 60% COHB Methemoglobin, Arterial 0.3 <=1.5 % [facility] Na Whole Blood 141 135 - 145 mmol/L [facility] K Whole Blood 6.7(Critic al) 3.5 - 5.0 mmol/L [facility] Comment: Noted by stringed instrument tuner. Please note: Patients with WBC >100,000 may have falsely elevated Potassium levels. Contact the Clinical Chemistry Laboratory if there are any questions. ICa Whole Blood 1.00(L) 1.15 - 1.33 mmol/L [facility] Comment: Note: ??Total bilirubin higher than 20 mg/dL may lead to falsely low ionized calcium. CL Whole Blood 117(H) 98 - 107 mmol/L [facility] Gluc Whole Bld 219(H) 65 - 199 mg/dL [facility] Comment:Diabetes: >=200 mg/d L plus symptoms. Lactate WB 1.2 0.5 - 2.2 mmol/L [facility] Blood specimen (specimen) 04/06/2018 1:53 PM EDT 04/06/2018 1:53 PM EDT Lida Peter MD POINT OF CARE TEST O RDERAMARISOL [facility] [place] [address] * Request For 2nd Read CT Head [...] RBC, Urine 21(H) 0 - 3 /HPF [facility] WBC, Urine 8(H) 0 - 3 /HPF [facility] Bacteria, Urine Occasional (A) None /HPF [facility] Squamous Epithelial Cells Raw Data, Urine 1 <=4 /HPF [facility] Granular Casts, Urine 1(H) <=0 /LPF [facility] Urine specimen obtained by clean catch procedure (specimen) 04/06/2018 1:25 PM EDT 04/06/2018 1:30 PM EDT Narrative Resulting Agency Comment Spec In Lab Fabian Burkett MD URINE ORDERABLES [facility] [place] [address] * Rapid Drug Screen w/o Confirmation, Urine (04/06/2018 1:25 PM EDT) Barbiturates Screen, Urine None Detected None Detected [facility] Comment: The barbiturate screen detects [...] Benzodiazepines Screen, Urine None Detected None Detected [facility] Comment: The benzodiazepines screen detects [...] Cocaine Screen, Urine None Detected None Detected [facility] Comment: The cocaine metabolites screen detects benzoylecgonine (Cocaine Metabolite) at concentrations >150 ng/mL. A ? Presumptive Positive? result indicates that the screening result was positive but has not yet been confirmed by a highly-specific method. As with any screen, occasional false positive results from cross-reacting substances may occur. Not for Medico-Legal Purposes. Methadone Metabolites Screen, Urine None Detected None Detected [facility] Comment: The methadone metabolite screen detects EDDP (major methadone metabolite) at concentrations >100 ng/mL. A ? Presumptive Positive? result indicates that the screening result was positive but has not yet been confirmed by a highly-specific method. As with any screen, occasional false positive results from cross-reacting substances may occur. Not for Medico-Legal Purposes. Opiate Screen, Urine None Detected None Detected [facility] Comment: The opiates screen detects [...] Cannabinoid Screen, Urine None Detected None Detected [facility] Comment: The marijuana metabolites screen detects the THC metabolite (91-zre-5-carboxy-delta 9-THC) at concentrations >20 ng/mL. A ? Presumptive Positive? result indicates that the screening result was positive but has not yet been confirmed by a highly-specific method. As with any screen, occasional false positive results from cross-reacting substances may occur. Not for Medico-Legal Purposes. Oxycodone Screen, Urine None Detected None Detected [facility] Comment: The oxycodone screen detects oxycodone and oxymorphone at concentrations >100 ng/mL. A ? Presumptive Positive? result indicates that the screening result was positive but has not yet been confirmed by a highly-specific method. As with any screen, occasional false positive results from cross-reacting substances may occur. Not for Medico-Legal Purposes. Buprenorphine Screen, Urine None Detected None Detected [facility] Comment: The buprenorphine screen detects buprenorphine at concentrations >5 ng/mL. A ? Presumptive Positive? result indicates that the screening result was positive but has not yet been confirmed by a highly-specific method. As with any screen, occasional false positive results from cross-reacting substances may occur. Not for Medico-Legal Purposes. Fentanyl Screen, Urine None Detected None Detected [facility] Comment: The fentanyl screen detects fentanyl at concentrations >2 ng/mL. A ? Presumptive Positive? result indicates that the screening result was positive but has not yet been confirmed by a highly-specific method. As with any screen, occasional false positive results from cross-reacting substances may occur. Not for Medico-Legal Purposes. Tricyclics Screen, Urine None Detected None Detected [facility] Comment: The tricyclics screen detects [...] Ethanol Screen, Urine None Detected None Detected [facility] Comment:This urine ethanol a ssay detects ethanol at concentrations >/= 100 mg/L. Amphetamines Screen, Urine None Detected None Detected [facility] Comment: The amphetamine screen detects d-amphetamine and d-methamphetamine at concentrations >300 ng/mL. A ? Presumptive Positive? result indicates that the screening result was positive but has not yet been confirmed by a highly-specific method. As with any screen, occasional false positive results from cross-reacting substances may occur. Not for Medico-Legal Purposes. Adulterants Screen, Urine None Detected None Detected [facility] Comment: No adulteration or dilution of this urine sample was detected. All urine samples submitted for urine drugs of abuse analysis are tested for creatinine concentration, pH, and for the presence of oxidants, nitrites, and chromate. Urine specimen (specimen) 04/06/2018 1:25 PM EDT 04/06/2018 1:30 PM EDT Narrative Resulting Agency Comment Spec In Lab Fabian Burkett MD CHEMISTRY ORDERABLES [facility] [place] [address] * (ABNORMAL) Urinalysis with reflex Culture (04/06/2018 1:25 PM EDT) Glucose, Urine Dipstick 50(A) Negative mg/dL [facility] Protein, Urine Dipstick >=500(A) Negative mg/dL [facility] Bilirubin, Urine Dipstick Negative Negative mg/dL [facility] Comment: Clinical correlation required for positive Urine Bilirubin results as false positive may occur with some drugs and drug related products. If a false positive is suspected a serum total bilirubin should be considered if clinically indicated. Urobilinogen, Urine Dipstick Normal Normal mg/dL [facility] pH, Urn (dipstick) 6.0 5.0 - 8.0 [facility] Blood, Urine Dipstick Small(A) Negative mg/dL [facility] Ketone, Urine Dipstick Negative Negative mg/dL [facility] Nitrite, Urine Dipstick Negative Negative [facility] Leukocytes, Urine Dipstick Negative Negative mcL [facility] Appearance, Urine Dipstick Hazy(A) Clear [facility] Specific [place] Urine Automated 1.023 1.002 - 1.030 [facility] Color, Urine Dipstick Yellow Yellow [facility] Reflex to Culture No [facility] Urine specimen obtained by clean catch procedure (specimen) 04/06/2018 1:25 PM EDT 04/06/2018 1:30 PM EDT Narrative Resulting Agency Comment Spec In Lab Erwin Hernandez MD URINE ORDERABLES [facility] [place] [address] * Rapid Drug Screen, Urine (RAUL Request) (04/06/2018 1:25 PM EDT) RAUL Conf Requested No [facility] Comment: Collection date/time has been modified to: 13:25:00. ??Previous collection date/time: 13:03:00. Corrected from No [NA] on 04/06/18 01:32 by Crystal MuellerU Requested See Comment [facility] Comment: Refer to Rapid Drug Screen w/o Confirmation, Urine for results. Collection date/time has been modified to: 13:25:00. ??Previous collection date/time: 13:03:00. Corrected from See Comment [NA] on 04/06/18 01:32 by Crystal Mueller Urine specimen (specimen) 04/06/2018 1:25 PM EDT 04/06/2018 1:30 PM EDT Narrative Resulting Agency Comment Spec In Lab Erwin Hernandez MD URINE ORDERABLES [facility] [place] [address] * CK (04/06/2018 1:15 PM EDT) Creatine Kinase 168 0 - 200 unit/L [facility] Blood specimen (specimen) Venous Draw / Unknown 04/06/2018 1:15 PM EDT 04/06/2018 2:22 PM EDT Narrative Resulting Agency Comment Spec In Lab Kavon Rob MD CHEMISTRY ORDERABLES Performing Organization Address City/[facility]/ZIP Co de Phone Number [facility] [place] [address] * Scan, Peripheral Blood (04/06/2018 1:15 PM EDT) Plat estimate Normal [facility] RBC Morphology Abnormal [facility] Ovalocytes 1-5 /HPF [facility] [place] Cells 1-5 /HPF [facility] Blood specimen (specimen) 04/06/2018 1:15 PM EDT 04/06/2018 1:24 PM EDT Narrative Resulting Agency Comment Spec In Lab Fabian Burkett MD HEMATOLOGY ORDERABLE S [facility] [place] [address] * ABORH Recheck Status (04/06/2018 1:15 PM EDT) ABORH Type Recheck Completed [facility] Blood specimen (specimen) 04/06/2018 1:15 PM EDT 04/06/2018 1:20 PM EDT Narrative Resulting Agency Comment Spec In Lab Fabian Burkett MD BLOOD BANK LAB ORDER KELLY [facility] [place] [address] * Blue Tube HOLD (04/06/2018 1:15 PM EDT) [facility] Blue Hold Sample in lab. [facility] Blood specimen (specimen) Venous Draw / Unknown 04/06/2018 1:15 PM EDT 04/06/2018 1:26 PM EDT Fabian Burkett MD HEMATOLOGY ORDERABLE S [facility] [place] [address] * Gold Tube HOLD (04/06/2018 1:15 PM EDT) Gold Hold Sample in lab. [facility] Blood specimen (specimen) Venous Draw / Unknown 04/06/2018 1:15 PM EDT 04/06/2018 1:25 PM EDT Fabian Burkett MD CHEMISTRY ORDERABLES [facility] [place] [address] * Blue Tube HOLD (04/06/2018 1:15 PM EDT) Blue Hold Sample in lab. [facility] Blood specimen (specimen) Venous Draw / Unknown 04/06/2018 1:15 PM EDT 04/06/2018 1:26 PM EDT Fabian Burkett MD HEMATOLOGY ORDERABLE S [facility] [place] [address] * (ABNORMAL) Differential, Automated (04/06/2018 1:15 PM EDT) Neutrophil % 78.7 % [facility] Neutrophil Absolute 12.22(H) 1.70 - 6.10 x10(3)/ L [facility] Lymph % 10.3 % [facility] Lymphocytes Abs 1.6 0.9 - 3.2 x10(3)/[facility] Monocyte % 9.8 % [facility] Monocyte Abs 1.5(H) 0.3 - 0.9 x10(3)/ L [facility] Eos % 0.1 % [facility] Eosinophils Abs 0.0 0.0 - 0.4 x10(3)/[facility] Basophil % 0.2 % [facility] Baso Absolute 0.0 0.0 - 0.1 x10(3)/[facility] Immature Gran % 0.90 % [facility] Comment: Immature granulocytes(IG's)percentage and absolute count will include metamyelocytes, myelocytes, and promyelocytes. Blood smears from CBCs yielding IG's will be scanned manually for concordance. If this scan disagrees with the automated IG or if promyelocytes are noted, a manual differential will be performed. Immature Gran Absolute 0.14(H) 0.00 - 0.04 x10(3)/ L [facility] Blood specimen (specimen) 04/06/2018 1:15 PM EDT 04/06/2018 1:24 PM EDT Narrative Resulting Agency Comment Spec In Lab Fabian Burkett MD HEMATOLOGY ORDERABLE S [facility] [place] [address] * (ABNORMAL) Hemogram (04/06/2018 1:15 PM EDT) White Blood Cell 15.5(H) 4.0 - 9.5 x10(3)/mc L [facility] Red Blood Cell 3.80(L) 4.58 - 5.54 x10(6)/mc L [facility] Hemoglobin 11.5(L) 13.7 - 16.5 gm/dL [facility] Hematocrit 35.2(L) 40.5 - 48.5 % [facility] Mean Cell Volume 92.6 82.9 - 93.1 [facility] Mean Cell Hemoglobin 30.3 27.5 - 32.1 pg [facility] Mean Cell Hemoglobin Concentration 32.7 32.0 - 35.7 gm/dL [facility] Platelet 145 145 - 357 x10(3)/mc L [facility] RDW Standard Deviation 53.2(H) 36.0 - 45.0 [facility] RDW coefficient of variation 15.9(H) 11.4 - 13.8 % [facility] Mean Platelet Volume 9.0 7.6 - 12.9 [facility] NRBC% auto 0.0 % [facility] NRBC Absolute 0.000 0.000 - 0.000 x10(3)/mc L [facility] Blood specimen (specimen) 04/06/2018 1:15 PM EDT 04/06/2018 1:24 PM EDT Narrative Resulting Agency Comment Spec In Lab Fabian Burkett MD HEMATOLOGY ORDERABLE S [facility] [place] [address] * Antibody screen (04/06/2018 1:15 PM EDT) Ab Screen Interp Negative [facility] Expires at [id number] on: 04/09/2018 [facility] Blood specimen (specimen) 04/06/2018 1:15 PM EDT 04/06/2018 1:20 PM EDT Narrative Resulting Agency Comment Spec In Lab Fabian Burkett MD BLOOD BANK LAB ORDER KELLY [facility] [place] [address] * ABO/Rh Typing (04/06/2018 1:15 PM EDT) Pathologist [facility] ABORH Type A Pos [facility] Comment: 04/06/2018 15:10 ??CHASDM ABO/Rh determined (Acc# [id number]) to be A pos. Blood specimen (specimen) 04/06/2018 1:15 PM EDT 04/06/2018 1:20 PM EDT Narrative Resulting Agency Comment Spec In Lab Fabian Burkett MD BLOOD BANK LAB ORDER KELLY [facility] [place] [address] * Fibrinogen (04/06/2018 1:15 PM EDT) [facility] Fibrinogen 255 200 - 393 mg/dL [facility] Comment: A fibrinogen level >100 mg/dL is adequate for hemostasis in most patients without underlying bleeding disorders. Blood specimen (specimen) 04/06/2018 1:15 PM EDT 04/06/2018 1:24 PM EDT Narrative Resulting Agency Comment Spec In Lab Erwin Hernandez MD HEMATOLOGY ORDERAB LES [facility] [place] [address] * Ethanol Level (04/06/2018 1:15 PM EDT) Ethanol <100 <=99 mg/L [facility] Comment: Greater than 800 mg/L (0.08%) should be considered intoxicated. 3400 to 4500 mg/L (0.34 - 0.45%) is considered severe intoxication. Greater than 5500 mg/L (0.55%) is usually fatal. Blood specimen (specimen) 04/06/2018 1:15 PM EDT 04/06/2018 1:24 PM EDT Narrative Resulting Agency Comment Spec In Lab Erwin Hernandez MD CHEMISTRY ORDERABL ES Performing Organization Address [facility] Co de Phone Number [facility] [place] [address] * APTT (04/06/2018 1:15 PM EDT) Partial Thromboplastin Time 31 25 - 37 sec [facility] Comment: The PTT is NOT appropriate for heparin monitoring. Use the Anti-Xa level for heparin monitoring (HEP UFH) or LMWH monitoring (HEP LMW). A PTT less than 37 seconds generally indicates adequate hemostasis. Blood specimen (specimen) 04/06/2018 1:15 PM EDT 04/06/2018 1:24 PM EDT Narrative Resulting Agency Comment Spec In Lab Erwin Hernandez MD HEMATOLOGY ORDERAB LES Performing Organization Address [facility] Co de Phone Number [facility] [place] [address] * (ABNORMAL) Prothrombin Time (04/06/2018 1:15 PM EDT) Prothrombin Time 29.1(H) 9.4 - 12.5 sec [facility] International Normalization Ratio 2.6 [facility] Comment: An INR <2.0 indicates [...] Lab Erwin Hernandez MD HEMATOLOGY ORDERAB LES [facility] [place] [address] * (ABNORMAL) Basic Metabolic Panel (non-fasting) (04/06/2018 1:15 PM EDT) Glucose 219(H) 65 - 199 mg/dL [facility] Comment:Diabetes: >=200 mg/d L plus symptoms Blood Urea Nitrogen 39(H) 10 - 20 mg/dL [facility] Creatinine 2.01(H) 0.80 - 1.50 mg/dL [facility] Sodium 140 135 - 145 mmol/L [facility] Potassium 5.2(H) 3.5 - 5.0 mmol/L [facility] Comment: Please note: ??Patients with WBC >100,000 may have falsely elevated Potassium levels. ??For accurate Potassium quantification in these patients send serum separator tube (gold top) for subsequent determinations. ??Contact the Clinical Chemistry Laboratory if there are any questions. Chloride 116(H) 98 - 107 mmol/L [facility] Carbon Dioxide 15(L) 22 - 31 mmol/L [facility] Anion Gap 9 5 - 15 mmol/L [facility] Calcium 4.9(Criti constance) 8.5 - 10.5 mg/dL [facility] Comment:Called by: lorelei, Read back by: misael luong_, Date/Time:04/06/18 14:04. Est Glomerular Filtration Rate 36(L) >=60 mL/min/1. 73 m?? [facility] Comment: The eGFR was calculated using the CKD-EPI equation. As with all creatinine based estimates of kidney function, eGFR values calculated with the CKD-EPI equation are not accurate in patients with acute kidney failure, extremes of body mass or the acutely ill. [email or web address] eGFR 42(L) >=60 mL/min/1. 73 m?? [facility] Comment: The eGFR was calculated using the CKD-EPI equation. As with all creatinine based estimates of kidney function, eGFR values calculated with the CKD-EPI equation are not accurate in patients with acute kidney failure, extremes of body mass or the acutely ill. [email or web address] Blood specimen (specimen) 04/06/2018 1:15 PM EDT 04/06/2018 1:24 PM EDT Narrative Resulting Agency Comment Spec In Lab Erwin Hernandez MD CHEMISTRY ORDERABL ES [facility] [place] [address] * XR Chest AP and Pelvis AP [...] pH, Arterial 7.14(Criti constance) 7.35 - 7.45 [facility] Comment:Noted by stringed instrument tuner. PCO2, Arterial 51(H) 35 - 45 mmHg [facility] PO2, Arterial 38(Critica l) 85 - 104 mmHg [facility] Comment:Noted by stringed instrument tuner. Bicarbonate, Arterial 16.7(L) 20.0 - 26.0 mmol/L [facility] Base Excess, Arterial -12.4(L) -3.0 - 3.0 mmol/L [facility] Hgb Blood Gas 12.3(L) 13.7 - 16.5 gm/dL [facility] Oxyhemoglobin, Arterial 69.1(L) 94.0 - 97.0 % [facility] Carboxyhemoglob in, Arterial 0.3 % [facility] Comment: Nonsmokers: 0.5-1.5% COHB Smokers: Variable, but usually less than 10% Toxic: 20-30% COHB Lethal: Greater than 60% COHB Methemoglobin, Arterial 0.4 <=1.5 % [facility] Na Whole Blood 137 135 - 145 mmol/L [facility] K Whole Blood 6.3(Critic al) 3.5 - 5.0 mmol/L [facility] Comment: Noted by stringed instrument tuner. Please note: Patients with WBC >100,000 may have falsely elevated Potassium levels. Contact the Clinical Chemistry Laboratory if there are any questions. ICa Whole Blood 1.01(L) 1.15 - 1.33 mmol/L [facility] Comment: Note: ??Total bilirubin higher than 20 mg/dL may lead to falsely low ionized calcium. CL Whole Blood 112(H) 98 - 107 mmol/L [facility] Gluc Whole Bld 258(H) 65 - 199 mg/dL [facility] Comment:Diabetes: >=200 mg/d L plus symptoms. Lactate WB 2.0 0.5 - 2.2 mmol/L [facility] Blood specimen (specimen) 04/06/2018 1:14 PM EDT 04/06/2018 1:14 PM EDT Erwin Hernandez MD POINT OF CARE TEST ORDERABLES [facility] [place] [address] * Prepare RBC (04/06/2018 1:05 PM EDT) Dispensed? Yes [facility] Blood specimen (specimen) 04/06/2018 1:05 PM EDT 04/06/2018 1:03 PM EDT Erwin Hernandez MD BLOOD BANK PRODUCT ORDERABLES Performing Organization Address [facility] Co de Phone Number [facility] [place] [address] * Film Library- Storage Only CT Chest Abdomen Pelvis (04/06/2018 12:05 AM EDT) Narrative [facility] - 04/06/2018 2:07 PM EDT This exam is for storage only and is auto-finalizing. Fabian Burkett MD [facility] FILM LIBRARY ORD ERABLES Performing Organization Address [facility] de Phone Number [place], [place] * SCAN DOC: IMPLANTABLE DEVICES (04/06/2018 12:00 AM EDT) Narrative 04/06/2018 12:00 AM EDT Ordered by an unspecified provider. Scanning Provider MEDIA MGR SCAN EXT O RDR/RSLT * Film Library- Storage Only CT Head And Spine (04/06/2018 12:00 AM EDT) Narrative [facility] - 04/06/2018 1:32 PM EDT This exam is for storage only and is auto-finalizing. Fabian Burkett MD [facility] FILM LIBRARY ORD ERABLES Performing Organization Address [facility] de Phone Number [place], [place] * SCAN DOC: LAB (04/06/2018 12:00 AM EDT) Narrative 04/06/2018 12:00 AM EDT Ordered by an unspecified provider. 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 (04/06/2018 12:00 AM EDT) Anatomical Region Laterality [...] 0522, Until Wed05/04/18 at 1520, Constipation, Routine ciprofloxacin (CIPRO) tablet 500 mg 500 mg, [...] First dose (after last modification) on Mariza 04/21/18 at 0900, Until Discontinued, Take with Food, Routine Given 05/04/2018 9:32 AM EDT 50 mg Given 05/03/2018 8:37 PM EDT 50 mg Given 05/03/2018 2:55 PM EDT 50 mg HYDROmorphone (DILAUDID) injection 0.3 mg 0.3 mg, Intravenous, EVERY 4 HOURS PRN, Starting on Mariza 04/07/18 at 0657, Until Wed05/04/18 at 1520, Pain, [...] 250 mg, Oral, DAILY, First dose on [facility] 04/07/18 at 2100, Until Discontinued, Routine Given 05/03/2018 [...] DAILY, First dose on Mariza 04/07/18 at 0700, Until Discontinued, DO NOT CRUSH [...] Blevins, SAVANNA) 0605 (Given - Provider: Margarita Blevins RN)1200 [...] Skin/Skin Structure 0607 (Given - Provider: Naz Robbins RN)1958 (Given - Provider: Torri Angelo RN) 0617 (Given - Provider: Torri Angelo RN)1842 (Given - Provider: Domi Rodriguez, SAVANNA) 0604 (Given - Provider: Margarita Blevins RN) dilTIAZem (DILTIAZEM CD) ER capsule 120 mg 120 mg, Oral, DAILY, First dose on Wed04/12/18 at 1745, Until Discontinued, DO NOT CRUSH OR OPEN, Routine 0842 (Given - Provider: Torri Adame RN) 0900 (Given - Provider: Domi Rodriguez, SAVANNA) 0927 (Given - Provider: Danny Quispe, SAVANNA) heparin (Porcine) subcutaneous injection 5,000 Units 5,000 Units, Subcutaneous, EVERY 12 HOURS SCHEDULED (2 times per day), First dose on Wed04/21/18 at 0900, Until Discontinued, Routine 0842 (Given - Provider: Torri Adame, SAVANNA)2103 (Given - Provider: Torri Angelo, SAVANNA) 09 (Given - Provider: Domi Rodriguez, SAVANNA)2100 (Given - Provider: Margarita Blevins, SAVANNA) 09 (Given - Provider: Danny Quispe, SAVANNA) hydrALAZINE (APRESOLINE) tablet 50 mg 50 mg, Oral, 3 TIMES DAILY, First dose (after last modification) on Wed04/21/18 at 0900, Until Discontinued, Take with Food, Routine 09 (Given - Provider: Lalitha Mack, SAVANNA)1434 (Given - Provider: Lalitha Mack, SAVANNA)205 (Given - Provider: Torri Angelo RN) 0900 (Given - Provider: Domi Rodriguez, SAVANNA)1455 (Given - Provider: Domi Rodriguez, RN)203 (Given - Provider: Margarita Blevins, SAVANNA) 0932 (Given - Provider: Danny Quispe, SAVANNA) levETIRAcetam (KEPPRA) tablet 250 mg 250 mg, Oral, DAILY, First dose on Wed04/07/18 at 2100, Until Discontinued, Routine 2100 (Given - Provider: Torri Angelo RN) 210 (Given - Provider: Margarita Blevins, SAVANNA) levETIRAcetam (KEPPRA) tablet 500 mg 500 mg, Oral, DAILY, First dose on Wed04/07/18 at 0900, Until Discontinued, Routine 0842 (Given - Provider: Torri Adame, SAVANNA) 0859 (Given - Provider: Domi Rodriguez, SAVANNA) 0927 (Given - Provider: Danny Quispe, SAVANNA) levothyroxine (SYNTHROID) tablet 88 mcg 88 mcg, [...] 0620 (Given - Provider: Torri Angelo RN) 06 (Given - Provider: Margarita Blevins RN) metoprolol tartrate (LOPRESSOR) tablet 50 mg 50 mg, Oral, EVERY 8 HOURS SCHEDULED, First dose on Wed04/08/18 at 1400, Until Discontinued, Hold for HR<55, Routine 0503 (Given - Provider: Naz Robbins RN)1434 (Not Given - Provider: Lalitha Mack RN - Reason: Contraindicated)2200 (Not Given - Provider: Torri Angelo RN - Reason: Order parameters not met) 06 (Given - Provider: Torri Angelo RN)1454 (Given - Provider: Domi Rodriguez, SAVANNA)211 (Given - Provider: Margarita Blevins RN) 06 (Given - Provider: Margarita Blevins RN) metroNIDAZOLE (FLAGYL) tablet 500 mg 500 mg, Oral, 2 TIMES DAILY, First dose on Wed04/26/18 at 0900, Until Discontinued, Routine, Indication for (Active or Suspected): Anaerobic infection-Skin/Skin Structure 0841 (Given - Provider: Torri Adame RN)210 (Given - Provider: Torri Angelo RN) 0859 (Given - Provider: Domi Rodriguez, SAVANNA)203 (Given - Provider: Margarita Blevins, SAVANNA) 09 (Given - Provider: Danny Quispe RN) mycophenolate (CELLCEPT) capsule 250 mg 250 mg, Oral, 2 TIMES DAILY, First dose on Wed04/07/18 at 0700, Until Discontinued, DO NOT CRUSH OR OPEN Administer to patient on empty stomach (1 hour before or two hours after a meal)., Routine 0607 (Given - Provider: Naz Robbins, SAVANNA)195 (Given - Provider: Torri Angelo RN) 0617 (Given - Provider: Torri Angelo, SAVANNA)184 (Given - Provider: Domi Rodriguez, SAVANNA) 06 (Given - Provider: Margarita Blevins RN) oxyCODONE (ROXICODONE) immediate release tablet 5 mg (COMPLETED) 5 mg, Oral, ONCE, 1 dose, On Wed05/02/18 at 0500, Routine 0503 (Given - Provider: Naz Robbins, SAVANNA) oxyCODONE (ROXICODONE) immediate release tablet 5 mg (COMPLETED) 5 mg, Oral, ONCE, 1 dose, On Wed05/02/18 at 0530, This for for the vac removal this morning on . Please give now., Routine 05 (Given - Provider: Naz Robbins, SAVANNA) pantoprazole (PROTONIX) tablet 20 mg 20 mg, Oral, 2 TIMES DAILY, First dose on Wed04/07/18 at 0900, Until Discontinued, DO NOT CRUSH OR OPEN 0842 (Given - Provider: Torri Adame, SAVANNA)2101 (Given - Provider: Torri Angelo, SAVANNA) 901 (Given - Provider: Domi Rodriguez, SAVANNA)2036 (Given - Provider: Margarita Blevins, SAVANNA) 921 (Given - Provider: Danny Quispe, SAVANNA) polyethylene glycol (MIRALAX) packet 17 g 17 g, Oral, DAILY, First dose on Wed04/19/18 at 0900, Until Discontinued, Routine 906 (Given - Provider: Lalitha Mack RN) 900 (Given - Provider: Domi Rodriguez, SAVANNA) 920 (Given - Provider: Danny Quispe, SAVANNA) senna-docusate (PERICOLACE) 8.6-50 mg per tablet 2 tablet 2 tablet, Oral, 2 TIMES DAILY, First dose on Wed04/19/18 at 0900, Until Discontinued, Routine 09 (Not Given - Provider: Lalitha Mack RN - Reason: Order parameters not met - Comment: +BM 05/01 - soft)2100 (Given - Provider: Torri Angelo RN) 900 (Given - Provider: Domi Rodriguez, SAVANNA)2037 (Given - Provider: Margarita Blevins, SAVANNA) 927 (Given - Provider: Danny Quispe, SAVANNA) sodium bicarbonate tablet 650 mg 650 mg, Oral, 3 TIMES DAILY, First dose on Wed04/12/18 at 1745, Until Discontinued, Routine 0907 (Given - Provider: Lalitha Mack, RN)1435 (Given - Provider: Lalitha Mack RN)2101 (Given - Provider: Torri Angelo RN) 0859 (Given - Provider: Domi Rodriguez, RN)1455 (Given - Provider: Domi Rodriguez, RN)2036 (Given - Provider: Margarita Blevins RN) 09 [...] Blevins RN) 09 (Given - Provider: Danny Quispe RN) tacrolimus (PROGRAF) capsule 1 mg 1 mg, Oral, NIGHTLY, First dose (after last modification) on Wed04/13/18 at 2100, Until Discontinued, Routine 2101 (Given - Provider: Torri Angelo RN) 2036 (Given - Provider: Margarita Blevins RN) tacrolimus (PROGRAF) capsule 1.5 mg 1.5 mg, Oral, DAILY, First dose on Wed04/13/18 at 1700, Until Discontinued, Routine 0843 (Given - Provider: Torri Adame RN) 09 (Given - Provider: Domi Rodriguez RN) 09 (Given - Provider: Danny Quispe RN) vancomycin [...] Bacteremia/Sepsis 1735 (New Bag - Provider: Lalitha Mack, SAVANNA)1805 (Stopped - Provider: Torri Angelo, SAVANNA) 1923 (New Bag - Provider: Margarita Blevins, SAVANNA)1953 (Stopped - Provider: Margarita Blevins, SAVANNA) Vancomycin Level - MAR Order Reminder [...] time to assure a timely blood draw. 173 (Lab Order Released - Provider: Domi Rodriguez [...] 10 mg, Rectal, DAILY PRN, Starting on Tu04/19/18 at 0522, Until Wed05/04/18 at 1520, Constipation, Routine hydrALAZINE (APRESOLINE) injection 20 mg 20 mg, Intravenous, EVERY 4 HOURS PRN, Starting on Wed04/22/18 at 0410, Until Wed05/04/18 at 1520, High Blood Pressure, For SBP > 160, For SBP > 160. Please try prn labetalol order first 702 (Given - Provider: Torri Angelo, SAVANNA) HYDROmorphone (DILAUDID) injection 0.3 mg 0.3 mg, Intravenous, EVERY 4 HOURS PRN, Starting on Mariza 04/07/18 at 0657, Until Wed05/04/18 at 1520, Pain, [...] Routine documented in this encounter Care Teams Pool Cleaner Relationship Specialty Start Date End Date Carroll Garcia DO [address] [place] [address] [address] [place] [address] PCP - General 09/23/11 10/20/22 documented as of this encounter
--- OUTSIDE RECORDS SUMMARY | 2024-04-22 11:05 | XMS_ITS | Encounter Summary ---
Author Organization [facility] [place] [address] Care Team Providers Care Program Services Planner Name Role Phone Alfredo Carroll MIX Primary Care Provider [phone] Reason for Visit * Auth/Cert Specialty Diagnoses [...] Expiration Date Visits Re quested Visits Authorized [id number] 1 1 Encounter Details Date Type Department Care Team (Late st Contact Info) Description 04/14/2018 7:29 AM EDT Anesthesia Event [place] [id number] Padmini Murdock MD [facility] [place] [address] Agustina Mendoza CRNA [facility] [place] [address] Anesthesia Record Procedure Summary Procedure Name Responsible Anesthesiologist Anesthesia Start Time Anesthesia Stop Time REPAIR INTERMEDIATE WOUND, (NO HANDS OR FEET) >30.0CM, UPPER EXTREMITY (WRVU 5) (Left) Padmini Murdock MD 04/14/18 0729 04/14/18 0834 Events Date Time Event Comment 04/14/2018 0729 Start 0732 AN Verify 0732 An Start Data 0737 An Intubation 0749 Anesthesia Ready 0827 Extubation/LMA Out 0827 an stop data 0834 Recovery or ICU Handoff Randa ent care was transferred to the destination unit staff after review of the patient's medical history, current anesthetic/surgical status and plan, according to the Provider Handoff Checklist. 0834 Stop 0844 Meds Name Total fentaNYL 100 mcg IV Lidocaine 40 mg Propofol 100 mg Propofol INF 522.12 mg PHENYLephrine 160 mcg Ondansetron 4 mg ceFAZolin (ANCEF) 1g in dextrose 5% 50mL 1 g Lactated Ringers 300 mL * Agents Name O2 Air N2O Sevoflurane (et) * Blood No blood administrations on file. Lines, Drains, and Airways Type Details Placement Removal Incision 02/05/16; face; 04/19/18; 92502/05/16 0000 by Jennifer Rueda RN 04/19/18 0926 by Karuna Nagel RN Incision 02/20/16; neck; vertical; 04/19/18; 92602/20/16 0000 by Dee Dee Servin RN 04/19/18 0927 by Karuna Nagel RN Incision 02/20/16; thigh; oth er (see comments) (skin graft donor site); 04/19/18; 92602/20/16 0000 by Dee Dee Servin RN 04/19/18 0927 by Karuna Nagel RN Incision 05/31/17; 1145; abdomen; laparoscopic puncture (port sites for left kidney ); 04/19/18; 92605/31/17 1145 by Leslie Gomez RN 04/19/18 0927 by Karuna Nagel RN Incision 04/06/18; 1345; arm; vertical; LDA not present upon assessment; 04/19/18; 95004/06/18 1345 by Bhargav Gomez RN 04/19/18 0951 by Karuna Nagel RN Incision 04/06/18; 1550; wris t; vertical; (duplicate); 04/18/18; 1314 04/06/18 1550 by Bhargav Gomez RN 04/18/18 1314 by Crystal Yan RN (RETIRED) Peripheral IV Line - Single Lumen 04/08/18; 2112; cephalic vein (lateral side of arm), right; [id number] catheter system; 22 gauge; catheter/device intact; 04/26/18; 91804/08/182112 by Anup Lopez RN 04/26/18 09 by Veronica Holt RN Wound 04/09/18; 1608; arm; extravasation; Right upper are basilic infiltrate; LDA not present upon assessment; 04/17/18; 170004/09/18 160 by Veto Pearl RN 04/17/18 170 by Negrita French RN Supraglottic Mask Ventilation: No t Attempted (0); LMA Type: Unique; LMA Size: 4; Inserted by: st. abarca; Removal Date: 04/14/18; Removal Time: 82604/14/18 0742 by Agustina Mendoza, GROUNDSKEEPING YARDMAN 04/14/18 0827 by Agustina Mendoza, GROUNDSKEEPING YARDMAN Incision 04/14/18; 0802; arm; other (see comments) (Pre-existing open wound); (duplicate); 04/18/18; 1314 04/14/18 0802 by Mary Kay Lawler RN 04/18/18 1314 by Crystal Yan RN documented in this encounter Social History [...] Postprocedure Evaluation - Padmini Murdock MD - 04/14/2018 11:06 AM EDT [facility] Department of Anesthesiology Post-procedure Note Patient: Adama Ram Procedure Summary Date Anesthesia Start Anesthesia Stop Room / Location 04/14/18 0729 0834 [facility] OR [facility] OR Procedure Diagnosis Surgeon Responsible Provider REPAIR INTERMEDIATE WOUND, (NO HANDS OR FEET) >30.0CM, UPPER EXTREMITY (WRVU 5) (Left ); MODIFIER WOUND VAC (Left Arm Lower) (open LUE fasciotomies) Yimi Easton MD Chaimberg, Kathleen H, MD All Anesthesia Providers: Anesthesiologist: Padmini Murdock MD GROUNDSKEEPING YARDMAN: Agustina Mendoza CRNA Most Recent Vitals: 04/14/18 0948 BP: (!) 154/99 Pulse: 59 Resp: 14 Temp: 36.8 ??C (98.2 ??F) SpO2: Pain Patient Location: PACU/[facility] Level of Consciousness: Awake and Alert Pain Management: Satisfactory Analgesia PONV: None Cardiovascular Status: At Baseline and Hemodynamically Stable Respiratory Status: At Baseline and Supplemental O2 (NC or FM) Postoperative Fluid Status: Intravascular EUvolemia Possible Anesthetic Complications: NONE apparent at time of evaluation Final Primary Anesthesia Type: General (The anesthetic type performed was the same as planned.) Comments: PADMINI MURDOCK MD * Anesthesia Preprocedure Evaluation - Padmini Murdock MD - 04/14/2018 8:41 AM EDT Images from the original note were not included. Pre-Anesthesia Evaluation for: Adama Ram a 57 y.o. male. Procedure(s): REPAIR INTERMEDIATE WOUND, (NO HANDS OR FEET) >30.0CM, UPPER EXTREMITY (WRVU 5) MODIFIER WOUND VAC Patient Active Problem List Diagnosis ??? Hemorrhagic shock ??? Primary papillary carcinoma of left kidney ??? Renal mass ??? Gastrointestinal hemorrhage ??? Bradycardia ??? Left renal mass ??? TRISTIAN (acute kidney injury) ??? Weight loss ??? CKD (chronic kidney disease) stage 4, GFR 15-29 ml/min ??? 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 halfway current use of immunosuppressive drug ??? H/O [...] performed by Miguel Angel Moreno MD at [facility] MAIN OR ??? PRO DECOMPRESS FOREARM, BRACH ART EXPLOR Left 04/06/2018 FASCIOTOMY, FOREARM, WITH BRACHIAL ARTERY EXPLORATION (WRVU 8.41) performed by Lida Peter, MDat [facility] OR ??? PRO DIRECT [...] performed by Miguel Angel Moreno MD at [facility] MAIN OR ??? PRO EXC SKIN MALIG 3.1-4CM FACE, FACIAL Left 02/05/2016 EXC MALIGNANT LESION, 3.1 TO 4.0CM, FACE performed by Miguel Angel Moreno MD at [facility] MAIN OR ? ? PRO EXC SKIN MALIG >4CM TRUNK, ARM, LEG 04/19/2012 EXC MALIGNANT LESION, MICHAEL > 4.0CM, TRUNK performed by SABRINA SANCHEZ at [facility] MAIN OR ??? PRO LAP, RADICAL NEPHRECTOMY Left 05/31/2017 @LAPAROSCOPY, RADICAL NEPHRECTOMY (WRVU 25.06) performed by Jax Mills MD at [facility] MAIN OR ??? PRO REBL VES GRAFT, UP EXTREM Left 04/06/2018 REPAIR BLOOD VESSEL WITH GRAFT OTHER THAN VEIN, UPPER EXTREMITY (WRVU 15.83) performed by Lida Peter MD at [facility] MAIN OR ??? PRO RELIEVE PRESSURE ON NERVE(S) Left 04/06/2018 (MSURG) CARPAL TUNNEL (WRVU 4.82) performed by Silviano Sparks MD at [facility] MAIN OR ??? PRO REPAIR INTERMEDIATE S/A/T/E 2.6-7.5 CM 04/19/2012 REPAIR INTERMEDIATE WOUND, (NO HANDS OR FEET) 2.6 TO 7.5CM, UPPER EXTREMITY performed by SABRINA SANCHEZ at [facility] MAIN OR ??? PRO REVISE MEDIAN N/CARPAL TUNNEL SURG Left 04/06/2018 MEDIAN NERVE DECOMPRESSION (CARPAL TUNNEL RELEASE) (WRVU 4.97) performed by Lida Peter MD [facility] OR ? ? PRO SPLIT GRFT, HEAD, FAC, HAND, FEET <100SQCM N/A 02/20/2016 SPLIT THICKNESS SKIN SPLIT GRAFT,100SQ CM OR LESS, NECK performed by Miguel Angel Moreno MD at [facility] MAIN OR ??? PRO UPPER GI ENDOSCOPY, BIOPSY N/A 05/13/2017 EGD WITH BIOPSY (WRVU 2.49) performed by Aditya Barrera MD at [facility] ENDOSCOPY ??? PRO VASCULAR SURGERY PROCEDURE UNLIST Left 11/20/2015 LIGATION\REPAIR AV FISTULA performed by Camilo Ireland MD at [facility] MAIN OR ??? PRO VASCULAR SURGERY PROCEDURE UNLIST Left 11/20/2015 EXCISION VEIN FROM HAND performed by Camilo Ireland MD at [facility] MAIN OR ??? US RENAL TRANSPLANT [...] been reviewed. Physical Exam: Most Recent Vitals: 04/14/18 0830 BP: (P) 109/61 Pulse: (P) 62 Resp: (P) 14 Temp: (P) 36.3 ??C (97.3 ??F) SpO2: (P) 98% Body mass index is 28.91 kg/(m^2). Height: 178 cm (5' 10.08) Weight: 91.6 kg (201 lb 15.1 oz) Airway Assessment: Mallampati: II TM distance: >3 FB Neck ROM: full Cardiovascular Assessment: Pulmonary Assessment: Dental Assessment: Misc Assessment: Anesthesia Plan: ASA 3 general, with a(n) intravenous induction 57 yo male with hx ESRD s/p renal transplant now s/p emergent repair of ruptured AVF left arm resulting in PEA/hypovolemic arrest, to OR today for washout/debridement/possible closure of resulting LUE wound. Discussed risks/benefits GA/LMA, serial consent obtained and in chart. Informed Consent: Anesthetic plan and risks discussed with patient. Use of blood products discussed with patient who. Plan discussed with GROUNDSKEEPING YARDMAN. PAT Staff Note documented in this encounter [...] Given 04/19/2018 8:03 AM EDT 2 g fentaNYL 50 mcg/mL multi-dose injection PRN, Starting on Mariza 04/14/18 at 0740, Until Mariza 04/14/18 at 0954, Pain, Anesthesia Intra-op, Routine Given 04/14/2018 8:05 AM EDT 25 mcg Given 04/14/2018 7:58 AM EDT 25 mcg Given 04/14/2018 7:50 AM EDT 25 mcg lactated Ringers infusion CONTINUOUS PRN, Starting on Mariza 04/14/18 at 0729, Until Mariza 04/14/18 at 0954, Anesthesia Intra-op New Bag 04/14/2018 7:29 AM EDT lidocaine (PF) (XYLOCAINE) 100 mg/5 mL (2 %) injection PRN, Starting on Mariza 04/14/18 at 0736, Until Mariza 04/14/18 at 0954, Anesthesia Intra-op, Routine Given 04/14/2018 7:36 AM EDT 40 mg ondansetron (ZOFRAN) injection PRN, Starting on Mariza 04/14/18 at 0809, Until Mariza 04/14/18 at 0954, Nausea, Anesthesia Intra-op, Routine Given 04/14/2018 8:09 AM EDT 4 mg PHENYLephrine in NS (PF) (MILLI-SYNEPHRINE) 0.8 mg/10 mL (80 mcg/mL) multi-dose injection Syrg PRN, Starting on Mariza 04/14/18 at 0809, Until Mariza 04/14/18 at 0954, Anesthesia Intra-op, Routine Given 04/14/2018 8:14 AM EDT 80 mcg Given 04/14/2018 8:09 AM EDT 80 mcg propofol (DIPRIVAN) 10 mg/mL bolus injection (Anesthesia) PRN, Starting on Mariza 04/14/18 at 0736, Until Mariza 04/14/18 at 0954, Anesthesia Intra-op Given 04/14/2018 7:36 AM EDT 100 mg propofol (DIPRIVAN) infusion CONTINUOUS PRN, Starting on Mariza 04/14/18 at 0732, Until Mariza 04/14/18 at 0954, Anesthesia Intra-op, Routine Rate/Dose Change 04/14/2018 7:38 AM EDT 150 mcg/kg/min 82.4 mL/hr New Bag 04/14/2018 7:32 AM EDT 100 mcg/kg/min 55 mL/hr documented in this encounter Care Teams Program Services Planner Relationship Specialty Start Date End Date Carroll Fuentes DO [address] [place] [address] PCP - General 09/23/11 10/20/22 documented as of this encounter
--- OUTSIDE RECORDS SUMMARY | 2024-04-22 11:05 | XMS_ITS | Encounter Summary ---
Author Organization [facility] Address [facility] [place] [address] Care Team Providers Care Drug Counselor Name Role Phone AlfredoCarroll allison Primary Care Provider Encounter Details Date Type Department Care Team (Latest Contact Info) Description 04/07/2018 2:53 AM EDT - 04/07/2018 9:12 AM EDT Hospital Encounter Radiology Library at [facility] [place] [phone] Discharge Disposition: Home Social History Tobacco Use [...] a week. 12 capsule 3 03/01/2018 07/19/2018 tacrolimus (PROGRAF) 1 mg Capsule Take 1 capsule twice daily. Kidney transplant 11/26/2002. ICD code Z94.0 60 capsule 5 02/28/2018 05/04/2018 allopurinol (ZYLOPRIM) 100 mg Tablet Take 1 and 1/2 tablet daily. 45 tablet 11 01/17/2018 07/19/2018 hydrALAZINE (APRESOLINE) 50 mg Tablet Take 1 tablet by mouth 2 times daily. 180 tablet 3 12/29/2017 05/04/2018 metoprolol tartrate (LOPRESSOR) 50 mg Tablet Take half a pill 3 times a day 180 tablet 11 10/20/2017 05/03/2018 levETIRAcetam (KEPPRA) 500 mg Tablet Take 1 pill in a.m. and half a pill in p.m. 45 tablet 11 10/20/2017 05/25/2018 pantoprazole (PROTONIX) 20 mg Tablet, Delayed Release (E.C.) Take 1 tablet by mouth 2 times daily. 180 tablet 3 08/17/2017 2018 sodium bicarbonate 650 mg Tablet Take 1 tablet by mouth 3 times daily. 270 tablet 3 06/28/2017 06/04/2018 losartan (COZAAR) 25 mg Tablet Take 1 tablet by mouth every morning. 90 tablet 3 06/28/2017 05/04/2018 acetaminophen (TYLENOL) 500 mg Tablet Take 2 tablets by mouth every 6 hours as needed for Pain. Do not exceed 4000 mg per 24 hours. 06/02/2017 05/04/2018 docusate sodium (COLACE) 100 mg Capsule Take 1 capsule by mouth 2 times daily as needed for Constipation. 06/02/2017 07/19/2018 warfarin (COUMADIN) 5 mg Tablet Take 1 tablet (5 mg) by mouth daily. PLEASE RESTART THIS MEDICINE ON 06/07. GO FOR INR ON 06/08. FOLLOW UP WITH DR FUENTES'S OFFICE. 06/02/2017 05/04/2018 dilTIAZem (CARTIA XT) 120 mg Capsule, Sust. [...] on filedocumented in this encounter Care Teams Drug Counselor Relationship Specialty Start Date End Date Carroll Fuentes DO [address] [place] [address] [address] [facility] [address] [place] [address] PCP - General 09/23/11 10/20/22 documented as of this encounter
--- OUTSIDE RECORDS SUMMARY | 2024-04-22 11:05 | XMS_ITS | Encounter Summary ---
Author Organization [facility] Address [facility] [place] [address] Care Team Providers Care Business Planning Manager Name Role Phone AlfredoCarroll allison Primary Care Provider Encounter Details Date Type Department Care Team (Latest Contact Info) Description 04/07/2018 9:13 AM EDT - 04/07/2018 11:59 PM EDT Hospital Encounter Radiology Library at [place] [phone] Discharge Disposition: Home Social History Tobacco Use [...] 06/08. FOLLOW UP WITH DR GARCIA'S OFFICE. 06/02/2017 05/04/2018 dilTIAZem (CARTIA XT) 120 [...] Diagnosis Comments REQUEST FOR 2ND READ CT SPINE Routine 04/07/2018 9:13 AM EDT documented in this encounter Results * Request For 2nd Read CT Spine [...] thoracic and lumbar spine were performed at [facility] on 04/06/2018. COMPARISON: CT chest and abdomen [...] thoracic and lumbar spine were performed at [facility] on 04/06/2018. COMPARISON: CT chest and abdomen [...] Peter MD IMG OUTSIDE INTERPRE TATION ORDERABLES documented in this encounter Visit Diagnoses Not on filedocumented in this encounter Care Teams Business Planning Manager Relationship Specialty Start Date End Date Carroll Garcia DO [address] [place] [place] [address] PCP - General 09/23/11 10/20/22 documented as of this encounter
--- OUTSIDE RECORDS SUMMARY | 2024-04-22 11:05 | XMS_ITS | Encounter Summary ---
Author Organization [facility] Address [facility] [place] [address] Care Team Providers Care Power Switchboard Operator Name Role Phone AlfredoCarroll geiger Primary Care Provider [phone] Reason for Visit * Reason Comments Trauma [...] Expiration Date Visits Re quested Visits Authorized [id number] 1 1 Encounter Details Date Type Department Care Team (Late st Contact Info) Description 04/14/2018 7:30 AM EDT - 04/14/2018 8:58 AM EDT Surgery [place] [address] Yimi Easton MD [facility] [place] [address] REPAIR INTERMEDIATE WOUND, (NO HANDS OR FEET) >30.0CM, UPPER EXTREMITY (WRVU 5) Social History Tobacco Use Types Packs/Day Years [...] Sign Reading Time Taken Comments Blood Pressure 125/74 04/14/2018 8:45 AM EDT Pulse 60 04/14/2018 8:45 AM EDT Temperature 36.3 ??C (97.3 ??F) 04/14/2018 8:30 AM ED T Respiratory Rate 15 04/14/2018 8:45 AM EDT Oxygen Saturation 93% 04/14/2018 8:45 AM EDT Inhaled Oxygen Concentration - - Weight 91.6 kg (201 lb 15.1 oz) 04/06/2018 5:18 PM EDT Height 178 cm (5' 10.08) 04/06/2018 [...] GFR 15-29 ml/min ??? 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 remote computer terminal operator current use of immunosuppressive drug ??? [...] epilepsy, and prior TBI who presents to [facility] s/p LUE bleeding with PEA arrest. Description [...] Pt intubated in field. Pt taken to [facility], where second tourniquet applied and pt received 6U PRBC. Transferred to [facility] for further care. Of note, per Dr. [...] Studies: none Discharge Conditions/Prognosis: Good Discharge to: [facility] [address] [place] [id number] Discharge Medications: Your Medications New Medications Dose [...] draw weekly CBC/CMP with results sent to [facility] Infectious disease. See wound care instructions below. [...] For any problems or questions please call [phone] JAGJIT FallonN, floral department specialist Nurse Clinician For issues on weeknights after 5pm and weekends please call [phone] and ask for the Vascular Fellow director sanitation bureau. General Instructions Plastic Surgery Wound Care Instructions [...] about scheduling, please contact our administrative officesat [phone] For clinical questions, please call our nurses at [phone] Both offices are open Wednesday thru Wednesday 8a - 5p. With emergencies after hours, call the hospital run boat operator at [phone] and ask for the Plastic Surgery Resident director sanitation bureau. Future Appointments and Orders Future Appointments and Orders Future Appointments Provider Department Dept Phone 05/17/2018 10:20 AM Laina Disla APRN Plastic Surgery at [place] Arrive at: [facility] Area 4M [phone] 05/17/2018 11:30 AM Kurt Medina MD Infectious Disease at [place] Arrive at: [facility] 5C [phone] 05/17/2018 12:30 PM Nilda Minaya RN Vascular Surgery at [place] Arrive at: [facility] 3V [phone] 05/27/2018 10:15 AM Lida Peter MD Vascular Surgery at [place] Arrive at: [facility] 3V [phone] 08/18/2018 10:30 AM Chanel Smith MD Dermatology at [facility] [phone] Future Orders Complete By Expires OPAT: Order / Recommendation for Post Discharge IV Antibiotic Management [[id number] CPT(R)] As directed Process Instructions: If no progress note charted, please enter Clinical details in comments. Scheduling Instructions: Comments: Please Fax all results to: OPAT Program Infectious Disease Section [facility], [place] [address] FAX: Line care instructions per [facility] OPAT Program protocol. After hours, please contact the Infectious Disease Physician director sanitation bureau at . If this order was signed greater than 72 hours prior to [facility] discharge, please call to confirm the accuracy [...] about scheduling, please contact our administrative officesat [phone] For clinical questions, please call our nurses at [phone] Both offices are open Wednesday thru Wednesday 8a - 5p. With emergencies after hours, call the hospital run boat operator at [phone] and ask for the Plastic Surgery Resident director sanitation bureau. * Patient Instructions* Nilda Minaya RN - [...] For any problems or questions please call [phone] YEIMY Fallon, floral department specialist Nurse Clinician For issues on weeknights after 5pm and weekends please call [phone] and ask for the Vascular Fellow director sanitation bureau. documented in this encounter Medications at Time [...] AM EDT Pt accepted bed offer at [facility] for transfer today. Pt qualifies for ambulance transfer due to being on bed alarm while here, being impulsive and history of TBI. Pt will be transferred at Noon via [facility]. I called pt brother Lucas to inform. He was with JANICE Guzman from [facility]. Our SW Bia spoke with Lucas as well about continuing the LTC Medicaid application process. Nurse to Nurse report number given to pt's staff nurse Danny. Discharge envelope started; still needed discharge summary, medication sheets and prescription added. Please call CM if needed for further pt discharge needs. Padmini Ruiz RN [phone] * Reynaldo Jade - 05/04/2018 8:58 AM EDT Office of Care Management/Clay House Worker Patient Name: Christy Ambrose : 1960 Patient has been offered a SNF bed at [facility] for today, 05/04/18 [facility] arranged for a 12:00 pm transport. Ambulance will need: Medicare ambulance form completed and signed (MD or Tieing Machine Operator RN/ROSTER CLERK) Copy of patient demographics [place] Out of Hospital DNR/DNI order, if active No MD to MD report necessary Please call Nursing Report to [phone], ask for mash filter operator. Info to accompany patient: Narcotic Prescriptions Copies of Medication Administration Records and IV sheets for past 10 days. Plan: Clay House Worker will be available to the patient and Tieing Machine Operator-RN and/or Social Workerfor further assistance. Patient will be discharged to: [address] [address] Reynaldo Jade, Clay House Worker * Chasidy Monahan PA - 05/04/2018 7:47 [...] AM Laina Disla APRN [facility] 4M [facility] 05/17/2018 11:30 AM Kurt Medina MD Leb Infec 5C [facility] 05/17/2018 12:30 PM Nilda Minaya RN Leb V Surg [facility] 08/18/2018 10:30 AM Chanel Smith MD [facility] Chasidy PANCHITO Moser Pager: [phone] * Nayeli Wilde, SAVANNA - 05/03/2018 8:29 PM EDT Images from the original note were not included. PRN dressing change Dressing prior to change Dressing after change * Natalya Wan MSW - 05/03/2018 5:01 PM EDT ROSTER CLERK and DONAVAN Chaidez met with Christy, his mother Ilda (HDPOA), and his brother Lucas (HDPOA and FPOA). All three parties accepted a bed offer at [facility] for rehab and hope thatif a bed becomes available at [facility] Christy can be transferred. Family to continue tocomplete [place] Choices for Care and work on [facility] supportive living with [facility] when mother goes to assisted living. * Nicole Hamilton LD - 05/03/2018 2:04 PM EDT Nutrition Progress Note Christy Ginna Ambrose is a 57 y.o. male Reason for intervention: Follow up Nutrition Recommendations: Could liberalize diet to [facility]/Cardiac Continue to monitor potassium trends Monitor weight [...] ml/min N18.4 ??? 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 remote computer terminal operator current use of immunosuppressive [...] encounter: 84.3 kg (185 lb 13.6 oz). [place] Body Weight (IBW): [place] body weight: 73.2 kg (161 lb 5.4 [...] intakes. Potassiumnormal, could consider liberalizing diet to [facility]/Cardiac. Patient denies any questions/concerns rega rding current [...] by primary team Javier Nolan MD Pager: [phone] * Tristin Marrero MD - 05/03/2018 7:40 [...] ongoing. Angelina Marrero Vascular Surgery, PGY3 Pager #[phone] * Tristin Marrero MD - 05/02/2018 12:35 [...] recommendations. Angelina Marrero Vascular Surgery, PGY3 Pager #[phone] * Chasidy Monahan PA - 05/02/2018 9:16 [...] team PANCHITO Rios Plastic Surgery Team Pager: [phone] * Natalya Jacobsen MD - 05/01/2018 9:15 [...] Aditi Mccollum MD Plastic Surgery Resident P# [phone] * Natalya Jacobsen MD - 04/30/2018 9:23 [...] Intake/Output Summary (Last 24 hours) at 04/30/2018 0924 Last data filed at 04/30/2018 0903 Gross [...] 216 249 Last 3 Lytes Recent Labs 04/30/185 04/29/18 0540 04/28/18 0440 NA 135 136 133* K 4.5 4.9 4.9 CL 100 104 101 CO2 21* 21* 20* BUN 39* 41* 44* CREATININE 2.94* 2.51* 2.80* Last Ca, Mg, Phos Recent Labs 04/30/18 025 CALCIUM 8.1* Last 3 Coags No results [...] BID Given: 04/29 2019 Vancomycin Level - SEP Order Reminder No Dose/Rate, NOT APPLICAB, Once [...] Aditi Mccollum MD Plastic Surgery Resident P# [phone] * Natalya Jacobsen MD - 04/29/2018 2:00 [...] MD General Surgery PGY-1 [id number] * Natalya Wan, ROSTER CLERK - 04/29/2018 11:21 AM EDT ROSTER CLERK spoke with patients mother and [facility] ROSTER CLERK who are following up today by completingChoices for Care application. Mother told ROSTER CLERK patient was fully independent until this event. [...] arm snuffbox): 04/19/18 - Corynebacterium Assessment: Christy Ginna Ambrose is a 57 y.o. [...] 10:30 AM NURSE, PLASTIC SURGERY [facility] [address] [place] [address] CLIN 05/02/2018 12:30 PM Natalya Ojeda MD Leb V [facility] 08/18/2018 10:30 AM [facility] MD [facility] Bauman MD Plastic surgery team pager: [phone] 04/29/2018 6:48 AM * Kumar Schilling - 04/28/2018 2:37 PM EDT Narrative: Visited to introduce and assess acceptance of Electrical Instrument Technician services. Pt was awake, alert, oriented and [...] Provided emotional, spiritua support and encouraging presence. Electrical Instrument Technician services accepted.Conversation to build trusting relationship.Provided pastoral [...] 10:30 AM NURSE, PLASTIC SURGERY [facility] [address] [place] [address] CLIN 05/02/2018 12:30 PM Natalya Ojeda MD [facility] 08/18/2018 10:30 AM Chanel Smith MD [facility] Taniya SC Plastic surgery team pager: [phone] 04/28/2018 8:12 AM Attending: Plan discussed and [...] Danielle Peoples, DO Infectious Disease Fellow Pager [phone] Associated attestation - Kurt Medina MD - [...] team PANCHITO Rios Plastic surgery team pager: [phone] 04/27/2018 8:46 AM Attending: Plan discussed and [...] stable - UOP adequate Thelma Solitario Pager: [phone] 04/27/18 * Domi Norman, RN - 04/26/2018 3:57 PM EDT Pt. [...] Note Recommendation/Plan: Diet at MD discretion, consider [facility] diet with K restriction May liberalize to [facility] if K is WNL Appreciate updated weights [...] 2.74* Last Ca, Mg, Phos Recent Labs 04/26/18 0439 CALCIUM 8.2* Last 3 Coags Recent [...] / appropriate for Occupational Therapy Services. Pager [phone] NICKY Irizarry/John Occupational Therapy Rehabilitation Department * [...] arm snuffbox): 04/19/18 - Corynebacterium Assessment: Christy Ginna Ambrose is a 57 y.o. [...] team PANCHITO Rios Plastic surgery team pager: [phone] 04/26/2018 8:01 AM Attending: Pt seen and [...] Danielle Peoples DO Infectious Disease Fellow Pager [phone] Associated attestation - Kurt Medina MD - [...] for skin grafting (04/26) - NPO at [facility] - Obtain consent or OR tomorrow - no need to hold [facility] PANCHITO Rios Plastic surgery team pager: [phone] 04/25/2018 1:10 PM Attending: Plan discussed and [...] 3 wbc, hgb, hct plt Recent Labs 04/25/1851704/24/1841604/23/186 WBC 5.4 4.7 5.2 HGB 8.2* 7.9* 8.0* HCT 26.1* 24.6* 24.3* PLATELET 327 283 317 Last 3 Lytes Recent Labs 04/25/1851704/24/1841604/23/18 0456 NA 138 138 137 K 5.2* 5.2* [...] 3 wbc, hgb, hct plt Recent Labs 04/24/18 0417 04/23/18 0456 04/22/18 0534 WBC 4.7 5.2 5.5 HGB 7.9* 8.0* 8.0* HCT 24.6* 24.3* 24.8* PLATELET 283 317 289 Last 3 Lytes Recent Labs 04/24/18 0417 04/23/18 0456 04/22/18 0534 NA 138 137 138 K 5.2* 4.9 5.3* CL 108* 103 106 CO2 20* 20* 19* BUN 38* 36* 38* CREATININE 2.74* 2.49* 2.30* Last Ca, Mg, Phos Recent Labs 04/24/18416 CALCIUM 8.0* Last 3 Coags Recent Labs 04/20/18 0548 04/19/18 0625 04/18/18 0526 PT 11.6 11.5 11.2 INR 1.0 1.0 1.0 PTT 27 27 27 Microbiology ?? Tissue culture [[id number]] (Abnormal) Collected: 04/19/18924 ? Lab Status: Preliminary [...] - skin grafting Wednesday - NPO at [place] Wednesday night - no need to hold [facility] Camden Sol MD Plastic Surgery, PGY-5 [...] dressing placement 04/19: Resection of prior L heather box radiocephalic AVF, radial artery ligation Subjective [...] 27 27 27 Microbiology ?? Tissue culture [[id number]] (Abnormal) Collected: 04/19/18924 ? Lab Status: Preliminary [...] O: Telephone call received from Rachna Muro ([facility]) who reports that patient's Mother is already assigned to worker Lalitha. Rachna suggested I call Mother and remind her that she has made contact with the agency. Rachna cannot release any information to [facility] without a signed release. Mobile Application Tester attempted to call Mother today, no answer, [...] PTT 27 27 27 Microbiology Tissue culture [[id number]] (Abnormal) Collected: 04/19/18924 ? Lab Status: Preliminary result Specimen: Skin Updated: 04/19/18 1014 ? Gram Stain -- (A) ? Many Neutrophils seen Rare Gram Negative Rods seen New Studies None Assessment & Plan Crhisty Ginna Ambrose is a 57 y.o. male [...] had just returned from ambulating unit3x w/ event staff. RN reports pt is supervision while ambulating to/from bathroom and requires min A for hygiene thoroughness. Pt deferred OT until tomorrow; pt education provided re: importance of frequent functional mobility and participation w/ ADL tasks. Will follow up as available / appropriate for Occupational Therapy Services. Pager [phone] NICKY Irizarry/John Occupational Therapy Rehabilitation Department * [...] PTT 27 27 27 Microbiology Tissue culture [[id number]] (Abnormal) Collected: 04/19/18924 ? Lab Status: Preliminary [...] Transplant: continue current immunosuppression regimen. Appreciate input. [facility] Vascular Surgery * Kelsey Tyler, RD - [...] ml/min N18.4 ??? 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 remote computer terminal operator current use of immunosuppressive [...] encounter: 86.2 kg (190 lb 0.6 oz). [place] Body Weight (IBW): [place] body weight: 73.2 kg (161 lb 5.4 [...] Lombardi Beeper #: [phone] * Karis Mejia, ROSTER CLERK - 04/20/2018 11:29 AM EDT Discharge Planning: O: Telephone call to patient's Mother Ilda who reports that she was unable to connect with her local [facility]. Unfortunately I believe that Ilda may be overwhelmed by patient's admission and events leading up to hospitalization. Ilda reports that there are repairs that need to be completed in the family home and that a staff member at [facility] (she cannot identify) has told her that patient can not return home. I offered support to Ilda and suggested that I would contact the [facility] and ask them to outreach to her. She was appreciative. Telephone call to Rachna Muro ([facility] [phone]), voice mail message relaying above information. P: Await call back from Rachna, continue to liaison with Mother and offer support around discharge planning. 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 to [facility] on 04/06/18 for hemorrhagic shock status post [...] EXAM: Intake/Output Summary (Last 24 hours) at 04/20/18918 Last data filed at 04/20/18 0606 Gross [...] PLATELET 302 274 305 Chemistry: Recent Labs 04/20/1848 04/19/18 0625 04/18/18 05 NA 138 137 135 K 4.7 4.7 [...] -2.3 -2.6 .He also had laparoscopic left [place] nephrectomy due to papillary renal cell ca [...] chronic kidney disease. -No acute indication for MULTI PURPOSE MACHINE OPERATOR ,,Strict intake and out put monitoring,Daily weights,Renal [...] Last 3 Lytes Recent Labs 04/20/18 0548 04/19/1825 04/18/18 0526 NA 138 137 135 K 4.7 4.7 4.3 CL 104 104 104 CO2 21* 21* 20* BUN 33* 35* 36* CREATININE 2.38* 2.12* 2.30* Last Ca, Mg, Phos Recent Labs 04/20/18 0548 CALCIUM 8.0* Last 3 Coags Recent Labs 04/20/18 0548 04/19/1825 04/18/18 0526 PT 11.6 11.5 11.2 INR 1.0 1.0 1.0 PTT 27 27 27 Microbiology Tissue culture [[id number]] (Abnormal) Collected: 04/19/18924 ? Lab Status: Preliminary [...] regimen. Angelina Marrero Vascular Surgery, PGY3 Pager #[phone] * Karuna Nagel, RN - 04/19/2018 10:28 [...] hours) at 04/19/18653 Last data filed at 04/19/18 06 Gross per 24 hour Intake 1796 ml [...] CALCIUM 8.3* Last 3 Coags Recent Labs 04/19/1862404/18/1852504/17/18442 PT 11.5 11.2 11.7 INR 1.0 1.0 [...] regimen. Plan for tacrolimus trough today. Angelina Jaycobcalli Marrero Vascular Surgery, PGY3 Pager #[phone] * Selma Fontanez PTA - 04/18/2018 2:14 PM EDT Physical Therapy Note Patient having bedside vac change with pain meds. Will follow up with patient tomorrow. Selma Fontanez PTA Pager# [phone] * Tristin Marrero MD - 04/18/2018 12:22 [...] None New Studies None Assessment & Plan Christymaty Ambrose is a 57 y.o. male s/p [...] - 04/18/2018 5:42 AM EDT - Christy J Arnol denies symptoms of SOB, dizziness, chest pain, [...] 99 % SpO2: [97 %-99 %] 04/16 0701 - 04/17 0700 In: 3618.8 [P.O.:1910; I.V.:183.8] Out: 2200 [Urine:2200] [...] kidney disease. - No acute indication for MULTI PURPOSE MACHINE OPERATOR, Strict intake and out put monitoring, Daily [...] clean. Neuro: Grossly intact, nonfocal. Recent Labs 04/16/1841604/15/1845604/15/1844604/14/1848 WBC 5.2 -- 5.0 5.4 HGB 7.9* -- 7.5* 7.5* HCT 24.9* -- 23.3* 22.9* PLATELET 288 -- 224 208 PT 11.5 12.9* -- 15.1* INR 1.0 1.2 -- 1.4 PTT 27 27 -- 28 Recent Labs 04/16/1841604/15/1844604/14/1848 NA 135 138 138 K 4.0 4.6 [...] kidney disease. - No acute indication for MULTI PURPOSE MACHINE OPERATOR, Strict intake and out put monitoring, Daily [...] ml/min N18.4 ??? 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 nursing home current use of immunosuppressive drug Z79.899 ??? [...] 4.0CM, TRUNK performed by SABRINA MEDRANO at [facility] OR ??? PRO LAP, RADICAL NEPHRECTOMY Left 05/31/2017 @LAPAROSCOPY, RADICAL NEPHRECTOMY (WRVU 25.06) performed by Jax Mills MD at [facility] OR ??? PRO REBL VES GRAFT, UP EXTREM Left 04/06/2018 REPAIR BLOOD VESSEL WITH GRAFT OTHER THAN VEIN, UPPER EXTREMITY (WRVU 15.83) performed by Lida Peter MD at [facility] OR ??? PRO RELIEVE PRESSURE ON NERVE(S) Left 04/06/2018 (MSURG) CARPAL TUNNEL (WRVU 4.82) performed by Hay Sparks MD at [facility] OR ??? PRO REPAIR INTERMEDIATE S/A/T/E 2.6-7.5 CM 04/19/2012 REPAIR INTERMEDIATE WOUND, (NO HANDS OR FEET) 2.6 TO 7.5CM, UPPER EXTREMITY performed by SABRINA MEDRANO at [facility] OR ? ? PRO REPAIR INTERMEDIATE S/A/T/E > 30.0 CM Left 04/14/2018 REPAIR INTERMEDIATE WOUND, (NO HANDS OR FEET) >30.0CM, UPPER EXTREMITY (WRVU 5) performed by Yimi Easton MD at [facility] OR ??? PRO REVISE MEDIAN N/CARPAL TUNNEL SURG Left 04/06/2018 MEDIAN NERVE DECOMPRESSION (CARPAL TUNNEL RELEASE) (WRVU 4.97) performed by Lida Peter MD [facility] MAIN OR ? ? PRO SPLIT GRFT, HEAD, FAC, HAND, FEET <100SQCM N/A 02/20/2016 SPLIT THICKNESS SKIN SPLIT GRAFT,100SQ CM OR LESS, NECK performed by Miguel Angel Moerno MD at [facility] MAIN OR ??? PRO UPPER GI ENDOSCOPY, BIOPSY N/A 05/13/2017 EGD WITH BIOPSY (WRVU 2.49) performed by Aditya Barrera MD at [facility] ENDOSCOPY ??? PRO VASCULAR SURGERY PROCEDURE UNLIST Left 11/20/2015 LIGATION\REPAIR AV FISTULA performed by Camilo Irealnd MD at [facility] MAIN OR ??? PRO VASCULAR SURGERY PROCEDURE UNLIST Left 11/20/2015 EXCISION VEIN FROM HAND performed by Camilo Ireland MD at [facility] MAIN OR ??? US RENAL TRANSPLANT BIOPSY 12/31/2010 Reason for Nutrition Intervention: Initial assessment Diet Order: Regular Appetite: Good Food allergies: None documented Chewing/Swallowing difficulty: none, cleared for regular diet and thin liquids per LICENSING SPECIALIST Estimated body mass index is 28.91 kg/(m^2) [...] being worked up for possible intracranial event. LICENSING SPECIALIST cleared patient for regular diet and thin liquids. Patient has been tolerating this well, but per RN this morning he did not eat d/t nausea. Thiscould be attributed to pain meds on empty stomach. LICENSING SPECIALIST and OT in with patient at time of attempt this morning, will check back in afternoon. Patient seen this afternoon having eaten ~50% of his lunch, appeared to still be eating as well. Hehas difficulty recalling his diet COLORECTAL SURGEON. He is not sure if he has [...] PTT 27 -- 28 29 Recent Labs 04/15/1844604/14/1854704/13/18 0814 NA 138 138 138 K 4.6 4.1 [...] kidney disease. - No acute indication for MULTI PURPOSE MACHINE OPERATOR, Strict intake and out put monitoring, Daily [...] kidney disease. - No acute indication for MULTI PURPOSE MACHINE OPERATOR, Strict intake and out put monitoring, Daily [...] to communicate with Mother re discharge planning. Mobile Application Tester spoke with Mother today who is glad to hear that patient is progressing. Mother has an appointment on 04/15/18 with the [facility] to discuss [place] LTC. She also had questions about filing for SSDI for patient. Mobile Application Tester suggested that she contact with [facility] officeand make an appointment to speak with someone there. 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 to [facility] on 04/06/18 for hemorrhagic shock status post [...] -2.3 -2.6 .He also had laparoscopic left [place] nephrectomy due to papillary renal cell ca [...] chronic kidney disease. -No acute indication for MULTI PURPOSE MACHINE OPERATOR ,,Strict intake and out put monitoring,Daily weights,Renal [...] 2.4 PTT 29 32 37 Recent Labs 04/13/1881304/12/1840 04/11/18 0555 NA 138 140 144 K [...] kidney disease. - No acute indication for MULTI PURPOSE MACHINE OPERATOR, Strict intake and out put monitoring, Daily weights, Renal dosing for medications - Hypertension: was on hydralazine 50 mg BID,diltiazem 120 mg XT daily ,metorpolol 50 mg TID,losartan 25 mg daily at home.Will recommend to restart his home meds and continue holding losartan in the setting of TRISTIAN. Tim Ogden MD * Ajay Alexandre - 04/12/2018 2:08 PM EDT Electrical Instrument Technician Encounter Note Patient Name: Christy Ambrose : [id number] MR#: [id number] Admit Date: 04/06/2018 12:58 PM Hospital Day 6 days Narrative: Seen on lead generator Rounds. Sitting in recliner. Cordial. Expression bemused, [...] chronic kidney disease. -No acute indication for MULTI PURPOSE MACHINE OPERATOR, Strict intake and out put monitoring, Daily weights, Renal dosing formedications - Hypertension: was on hydralazine 50 mg BID,diltiazem 120 mg XT daily ,metorpolol 50 mg TID,losartan 25 mg daily at home.Will recommend to restart his home meds and continue holding losartan in the setting of TRISTIAN. Tim Ogden MD * Chase Olvera MD - 04/12/2018 9:17 AM EDT [facility] Transplant Progress Note PATIENT: Christy Ambrose : [...] therapy (tacrolimusand CellCept), papillary renal cancer for crow creek left kidney s/p laparoscopic left radical nephrectomy in May 2017, suspected DVT on anticoagulation therapy with the Coumadin transferred from [facility] to [facility] on 04/06/18 for hemorrhagic shock status post [...] -2.3 -2.6 .He also had laparoscopic left [place] nephrectomy due to papillary renal cell ca [...] chronic kidney disease. -No acute indication for MULTI PURPOSE MACHINE OPERATOR ,,Strict intake and out put monitoring,Daily weights,Renal [...] 04/11/2018 Neurology resident, PGY-3 Vascular Neurology Pager [phone] Associated attestation - Tim Collins MD - [...] treatment session. Kelsey Hua, PT Pager # [phone] PT Evaluation Code Rationale: ?? Diagnosis & [...] ml/min N18.4 ??? 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 remote computer terminal operator current use of immunosuppressive [...] cook, clean independently. 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 pt usually ambulates [...] Assessment/Treatment Assistive Device (Bed Mobility) bed rails Zwpskf-eg-Tvx Heartwell (Bed Mobility) minimum assist (75% patient effort) Comment (Bed Mobility) HOB elevated Transfer Assessment/Treatment Heartwell (Sit-Stand Transfers) moderate assist (50% patient effort);verbal cues required;2 person assist required Heartwell (Stand-Sit Transfers) moderate assist (50% patient effort);verbal cues required;2 person assist required Swj-Bytws-Zyr Assistive Device (Transfers) rolling walker (initially transfered mod x2 w/o AD, poor balance) Safety Issues (Transfers) loses balance backward (lost balance forward initially) Impairments (Transfers) balance impaired;strength decreased;pain Comment (Transfers) cues for hand placement on RW Gait Assessment/Treatment Heartwell (Gait) moderate assist (50% patient effort);verbal cues [...] good balance Sitting Balance: Dynamic fair balance Ixl-mo-Lzuwh Balance poor balance Standing Balance: Static poor [...] to sit/sit to sidelying Bed Mobility Goal, Heartwell Level independent Gait Training Goal Gait Training Goal, Date Established 04/11/18 Gait Training Goal, Time to Achieve 2 wks Gait Training Goal, Heartwell Level independent Gait Training Goal, Assist Device other (see comments) (LRD ) Gait Training Goal, Distance to Achieve 150 ft Transfer Training Goal Transfer Training Goal, Date Established 04/11/18 Transfer Training Goal, Time to Achieve 2 wks Transfer Training Goal, Activity Type all transfers Transfer Train Goal, Heartwell Level independent Transfer Training Goal, Assist Device [...] treatment session. Kelsey Hua PT Pager # [phone] * Karis Mejia MSW - 04/11/2018 1:15 PM EDT Discharge Planning: O: Requested by CANDY-RN to contact Mother re her concerns around housing. Mobile Application Tester spoke with Mother who relayed that she [...] and plans to speak with her local [place] [facility]. Mobile Application Tester suggested to Mother that she begin to have a conversation with them around [place] LTC as that would be the payor source for patient. Mother is also interested in finding out what the discharge plan will be. Mobile Application Tester relayed that a CM-RN would be in [...] longer needed); will follow up with Transplant Nephrology/Hospital Med today Tim Ogden MD * Odalis Castanon [...] MD/NEHA, PGY-5 Section of Vascular Surgery, Pager [phone] * Tim Ogden MD - 04/10/2018 10:57 [...] 04/09/2018 Neurology resident, PGY-4 Vascular Neurology Pager [phone] ... I saw and evaluated the patient [...] MD/NEHA, PGY-5 Section of Vascular Surgery, Pager [phone] * Alfonzo Miles MD - 04/08/2018 4:56 [...] initiated. Alfonzo Miles MD Department [place] [address] Pager: [phone], [phone] Email: [email or web address] * Sharmin Barth RN - 04/08/2018 12:34 PM EDT [place] [facility] RESPONSE TEAM NOTE Name: Christy Chacko Arnol Age: 57 y.o. Sex; Male Date of : 1960 Responding Members: BENJAMIN ROGEL RCP Date/Time of Admission: 04/06/2018 12:58 PM Unit/Room: [facility] 4W Service: Vascular sx Attending: Quin Peter Industrial Machinery Mechanic present? Yes Attending Contacted? Yes Time Activated: [...] f/u Wednesday as appropriate. Negrita Arnold OT #[phone] * Veronica Holt RN - 04/08/2018 12:09 [...] any questions. 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 to [facility] on 04/06/18 for hemorrhagic shock status post [...] Latest Ref Range: Clear Hazy (A) Spec [place] UA Latest Ref Range: 1.002 - 1.030 [...] hypoxic ischemic injury. ?? 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 Description [...] Pt intubated in field. Pt taken to [facility], where second tourniquet applied and pt received 6U PRBC. Transferred to [facility] for further care. ?? Of note, per [...] DEBRIDEMENT SKIN AND SUBCU, HEAD/NECK performed by Mgiuel Angel Moreno MD at [facility] [...] 4.0CM, TRUNK performed by SABRINA MEDRANO at [facility] OR ??? PRO LAP, RADICAL NEPHRECTOMY Left 05/31/2017 @LAPAROSCOPY, RADICAL NEPHRECTOMY (WRVU 25.06) performed by Jax Mills MD at [facility] OR ??? PRO REBL VES GRAFT, UP EXTREM Left 04/06/2018 REPAIR BLOOD VESSEL WITH GRAFT OTHER THAN VEIN, UPPER EXTREMITY (WRVU 15.83) performed by Lida Peter MD at [facility] OR ??? PRO RELIEVE PRESSURE ON NERVE(S) Left 04/06/2018 (MSURG) CARPAL TUNNEL (WRVU 4.82) performed by Hay Sparks MD at [facility] OR ??? PRO REPAIR INTERMEDIATE S/A/T/E 2.6-7.5 CM 04/19/2012 REPAIR INTERMEDIATE WOUND, (NO HANDS OR FEET) 2.6 TO 7.5CM, UPPER EXTREMITY performed by SABRINA MEDRANO at [facility] OR ??? PRO REVISE MEDIAN N/CARPAL TUNNEL SURG Left 04/06/2018 MEDIAN NERVE DECOMPRESSION (CARPAL TUNNEL RELEASE) (WRVU 4.97) performed by Lida Peter MD [facility] MAIN OR ? ? 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 [...] epilepsy, and prior TBI who presents to [facility] s/p hemorrhagic shock and PEA arrest from [...] care per primary Vascular team. Please page #[phone] for any further questions or concerns. Procedures: [...] -none Sabrina Armas MD 04/07/2018 Trauma pager [phone] * Apple Gutierrez MD - 04/07/2018 6:59 [...] -- Other Labs: Imaging: Micro: ASSESSMENT: Christy Ginna Ambrose is a 57 [...] and tender to touch. Pt transferred to [facility] with all belongings. Report given to oncoming RN. * Natalya Minaya MD - 04/08/2018 12:59 PM EDT Critical Care - Admission Note History of Present Illness: Christy Ambrose is a 57 y/o M w/ PMH developmental delay, epilepsy, IGA nephropathy (s/p renal transplant 2002, on tac & mycophenalate) left [place] nephrectomy (2016), HTN who was found down on 04/06 at his home w/ bleeding from L AVF. He had PEA arrest, ROSC w/ chest compressions, 1 dose epi. Tourniquet applied to L arm in field, pt intubated and brought to [facility]. Received 6 units PRBC & transferred to [facility]. On arrival GCS 11, taken to OR [...] ml/min N18.4 ??? 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 H/O kidney transplant Z94.0 ??? TRISTIAN [...] 4.0CM, TRUNK performed by SABRINA MEDRANO at [facility] OR ??? PRO LAP, RADICAL NEPHRECTOMY Left 05/31/2017 @LAPAROSCOPY, RADICAL NEPHRECTOMY (WRVU 25.06) performed by Jax Mills MD at [facility] OR ??? PRO REBL VES GRAFT, [...] (WRVU 4.97) [facility] ? ? 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 [...] 7.27* PO2ART 65* 152* 168* 228* 379* [id number] 31* 34* 39 40 36 BEART -11.8* [...] Body Fluid Culture, Aerobic & Anaerobic Fluid [[id number]] Collected: 04/06/18 141 ? Lab Status: Preliminary result Specimen: Fluid Updated: 04/07/18 1332 ? Body Fluid Culture, Aerobic [[id number]] Collected: 04/06/181414 ? Lab Status: Preliminary result Specimen: Fluid Updated: 04/07/18 0804 ? Body Fluid Culture Few normal cutaneous shaina ? Gram Stain -- ? Few Neutrophils seen No microorganisms seen. ? Anaerobic Culture [[id number]] Collected: 04/06/18 1415 ? 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 [...] Disposition: Critical Care Red 1 Team (pager [phone]) Natalya Minaya MD 04/08/2018 * Erwin Marino MD - 04/06/2018 5:03 PM EDT Critical Care - Admission Note History of Present Illness: Christy Ambrose is a 57 y.o. male with PMH of HTN, TBI w/ epilepsy, gout, IgA nephropathy s/p donor renal transplant 2002 (on tacrolimus and cellcept) complicated by delayed graft function andrecurrent IgA nephropathy and Prograf toxicity, laparoscopic L [place] radical nephrectomy May 2017 for papillary carcinoma, HTN, previous revision of L AVF due to massive size. Recently put on coumadin for infection of left forearm with swelling, suspected to be DVT. Presents to [facility] with hemorrhagic shock s/p PEA arrest secondary to torrential left upper extremity fistula bleeding. Per EMS the patient had a severe amount of blood loss in the bathroom and bedroom that resulted in PEA cardiac arrest at the scene. He received epinephrine, 2.5 L of normal saline with ROSC obtained. Arrived at [facility] and sedated and then received 6 units [...] 4.0CM, TRUNK performed by SABRINA MEDRANO at [facility] OR ??? [...] OR LESS, NECK performed by Miguel Angel oMreno MD at 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 [...] mcL Appearance UA Hazy (A) Clear Spec [place] UA 1.023 1.002 - 1.030 Color UA [...] No microorganisms seen. Radiology: XR Chest and [id number] 04/06 Prominence of the superior mediastinum may [...] Ambrose Level of Activation: Trauma 9 MR#: [id number] [ ]Scene Call or [X]Hospital Transfer : [id number] CC/MECHANISM OF INJURY: 57 y.o. Male s/p [...] HTN, epilepsy,and prior TBI who presents to [facility] s/p LUE bleeding with PEA arrest. Description [...] Pt intubated in field. Pt taken to [facility], where second tourniquet applied and pt received 6U PRBC. Transferred to [facility] for further care. Of note, per Dr. [...] 4.0CM, TRUNK performed by SABRINA MEDRANO at [facility] OR ??? 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 [...] Normal RBC Morphology Abnormal Ovalocytes 1-5 /HPF [place] Cells 1-5 /HPF Rapid Drug Screen, Urine [...] mcL Appearance UA Hazy (A) Clear Spec [place] UA 1.023 1.002 - 1.030 Color UA [...] epilepsy, and prior TBI who presents to [facility] s/p LUE bleeding with PEA arrest now [...] to the planned procedure. Hand Hygiene: The extra hand did perform hand hygiene prior to line insertion. Catheter type: PICC Lot number: [id number] Procedure Technique: Skin was prepped with chlorhexidine. [...] vac dressing completed. Left forearm wound measures [id number] with clean, well granulated base. PANCHITO Eng [...] Reyna MD - 04/09/2018 9:03 AM EDT [facility] Department of Neurology Critical Care Prolonged EEG [...] EDWARD Angelika Aguilera PA 50 mg at 04/09/18 0555 ??? [...] mg Intravenous Q4H PRN Natalya Minaya MD 20 mg at 04/08/18 1745 METHODS A 21 channel digitized electroencephalogram was performed in the Intensive Care Unit by the [facility] Clinical Neurophysiology Laboratory. The 10/20 international [...] ALEJANDRO REYNA MD 04/09/2018 9:04 AM. * Keanu Beth Ronny - 04/08/2018 3:43 PM EDTAssociated Order(s): EEG AWAKE, ASLEEP, DROWSY [facility] Department of Neurology In Patient Routine EEG [...] tablet 50 mg 50 mg Oral Q8H [facility] Angelika Aguilera M, PA 50 mg at 04/08/18 1440 ??? [...] channel digitized electroencephalogram was performed in the [facility] Clinical Neurophysiology Laboratory. The 10/20 international system of electrode placement was used and bipolar and referential electrode montages were recorded. In addition to EEG the patient was monitored for EKGand lateral/vertical eye movements. Video was recorded during the session. The duration of the recording was 30 minutes. NAILER MACHINE'S REPORT: Performed by: AT Patient was not [...] patient to update him that [facility] in [place], [place] is reviewing him for possible admission this week. Pt was appreciative for this news. Pt has filed for L[facility] with [facility]. Pt's staff nurse Lalitha mensah. I was going to call pt's brother Lucas to discuss. ROSTER CLERK Sandeep Wan had just talked with pt's brother and mother Ilda and informed me that a tentative family meeting has been set up for tomorrow at 3:00 pm. CM will be part of the meeting; will continue to follow. Padmini Ruiz RN [phone] * Plan of Care - Naz Robbins [...] ADLs]: Eyes on Surveillance [continuous indirect monitoring]: Angelina purposeful rounding CPG GOAL OUTCOME EVALUATION: Goal: [...] 04/30/18 1903 Health Knowledge, Opportunity to Enhance (Adult,NICU,[place],Obstetrics,Pediatric) Knowledgeable about Health Subject/Topic making progress toward [...] PRN PICC dressing change completed as per [facility] protocol. yes Positive pressure displacement connector (Max [...] Implemented as Appropriate) 04/29/18 2100 04/30/18 0830 04/30/18 1033 Daily Care Interventions Self-Care [...] 04/27/2018 3:19 PM EDT OFFICE OF CARE MANAGEMENT/Tieing Machine Operator/PROGRESS NOTE e-DH reviewed. Report received from vascular. [...] broughthim in. Plan is to look for Intermediate Care and I have submitted to other [...] Discharge Disposition: (P) inpatient rehabilitation facility Pager: [phone] IRLANDA MUNOZ 04/27/2018 Occupational Therapy Rehabilitation Department 04/27/18 5972 Rehab Evaluation Document Type therapy note (daily note) Total Evaluation Minutes, Occupational Therapy 24 Patient Effort good Symptoms Noted During/After Treatment none General Information Patient Profile Review yes Patient/Family/Caregiver Comments/Observations I can pickers material handlers a can of soup with my L arm General Observations of Patient arrived to find pt sitting upright in recliner Pertinent History of Current Problem Christymaty Ambrose is a 57 y.o. male w/ [...] Assessment/Treatment Assistive Device (Bed Mobility) bed rails Jov-tw-Xugvyg Heartwell (Bed Mobility) conditional independence Impairments (Bed Mobility) flexibility decreased;ROM (range of motion) decreased;strength decreased Comment (Bed Mobility) HOB slightyly elevated; vc's to adjust HOB Transfer Assessment/Treatment Chair-Bed Heartwell (Transfers) contact guard assist Heartwell (Sit-Stand Transfers) contact guard assist Heartwell (Stand-Sit Transfers) contact guard assist Heartwell (Toilet Transfers) (pt continues to report ambulating to bathrom for toileting) Impairments (Transfers) balance impaired;ROM (range of motion) decreased;strength decreased Gait Assessment/Treatment Heartwell (Gait) contact guard assist Assistive Device (Gait) gait belt Distance in Feet (Gait) 750' Safety Issues (Gait) balance decreased during turns;step length decreased Impairments (Gait) balance impaired;coordination impaired Comment (Gait) mild ataxia; no lob noted; assist to carry wound vac Lower Body Dressing Assessment/Training Position (LB Dressing) standing Heartwell Level (LB Dressing) contact guard assist Impairments [...] good balance Sitting Balance: Dynamic fair balance Exm-rw-Qrybi Balance fair balance Standing Balance: Static fair [...] in. ?? I have met with the patient/merchandiser retail representative to discuss discharge planning needs. I have provided the [facility], Office of Care Management letter from the [employer] pertaining to rehab referrals. I have also provided a letter describing our affiliations within the [facility] and educated them about their right to choose where referrals are placed. ?? I reviewed the different levels of rehab including SNF, swing, acute and LTAC with the patient/merchandiser retail representative. ?? The patient/merchandiser retail representative has been provided a list of facilities within their preferred geographic area. ?? I have requested that the patient/merchandiser retail representative provide at least three choices for referral. ?? The patient/merchandiser retail representative have requested referrals to: ?? 1. [facility] ?? 2. [facility] ?? 3. [facility]. View ?? Expected date of discharge: 3-5 days Note routed to [place] Worker who will communicate referrals to facilities and provide any required information. * Plan of Care - Helen Denny RN - 04/27/2018 10:22 AM EDT Problem: Health Knowledge, Opportunity to Enhance (Adult,NICU,,Obstetrics,Pediatric) Goal: Knowledgeable about Health Subject/Topic Patient will demonstrate the desired outcomes by discharge/transition of care. Peripherally Inserted Central Catheter (PICC) Teaching Sheet Peripherally inserted central catheters (cnhh-jr-nhwz) (PICC) are used when you need IV [...] midline catheter? PICC lines are used for remote computer terminal operator treatments. PICC lines may be used for [...] can be set up via the nurse Tieing Machine Operator to help you. What are possible complications [...] Vascular Access Device Selection, Insertion, and Management, [employer] Access Systems 04/15. A Review of the Efficacy, Safety, Use, and Administration of [employer], [employer] 2005 * Plan of Care - [...] Stand by assist Surveillance [continuous indirect monitoring]: Angelina purposeful rounding, call daniels in reach Patient-specific [...] -- supine -- Goal: Infection Control 04/26/18 08 Safety Interventions Isolation Precautions standard precautions maintained Infection Prevention single patient room provided Coping Strategies Supportive Measures active listening utilized Goal: Discharge Needs Assessment 04/18/18 8210 Discharge Needs Assessment Concerns To Be Addressed [...] agency transportation Goal: Interdisciplinary Rounds/Family Conf 04/25/18 8996 Interdisciplinary Rounds/Family Conf Participants nursing;patient Problem: Seizure [...] Sparks MD - 04/26/2018 12:40 PM EDT [facility] Operative Note Patient Name: Christy Ambrose : [id number] MR#: [id number] Case Date: 04/26/2018 Surgeon: Surgeon(s) and Role: [...] Aditi Mccollum MD Plastic Surgery Resident, pager [phone] Plastic surgery team pager: [phone] Attestation: Case Date: 04/26/2018 I was present and I participated during the entire procedure (does not need to include opening and closing). HAY SPARKS MD 04/27/2018 * Brief Op Note - Aditi Mccollum MD - 04/26/2018 12:36 PM EDT Brief Operative Note Patient Name: Christy Ambrose : [id number] MR#: [id number] Case Date: 04/26/2018 Surgeon: Surgeon(s) and Role: [...] Outcome: Ongoing (Interventions Implemented as Appropriate) 04/25/18 8732 Skin Integrity Impairment, Risk/Actual (Adult) Skin Integrity/Wound [...] -- -- Reorient when needed, encourage ambulations 04/19/18347 Mutuality/Individual Preferences What Anxieties, Fears or Concerns Do You Have About Your Health or Care? [facility] What Questions Do You Have [...] CPG). Outcome: Ongoing (Interventions Implemented as Appropriate) 04/25/186 Seizure Disorder/Epilepsy Problems Assessed (Seizure Disorder/Epilepsy) all Problems Present (Seizure Disorder/Epilepsy) none * Plan of Care - Natalia Nagel RN - 04/24/2018 7:49 PM EDT Problem: Patient Care Overview Goal: Plan of Care Review 04/24/181943 Coping/Psychosocial Plan Of Care Reviewed With patient;mother [...] Ongoing (Interventions Implemented as Appropriate) 04/22/18 1412 04/22/181944 Coping/Psychosocial Plan Of Care Reviewed With -- [...] ml/min N18.4 ??? 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 OR [...] 4.0CM, TRUNK performed by SABRINA MEDRANO at [facility] OR ??? [...] UP TO 50SQ.CM (WRVU 0.55) performed by Odails Elias MD [facility] OR ??? PRO REBL VES GRAFT, UP EXTREM Left 04/06/2018 REPAIR BLOOD VESSEL WITH GRAFT OTHER THAN VEIN, UPPER EXTREMITY (WRVU 15.83) performed by Lida Peter MD at [facility] OR ??? PRO RELIEVE PRESSURE ON NERVE(S) Left 04/06/2018 (MSURG) CARPAL TUNNEL (WRVU 4.82) performed by Hay Sparks MD at [facility] OR ??? PRO REPAIR INTERMEDIATE S/A/T/E 2.6-7.5 CM 04/19/2012 REPAIR INTERMEDIATE WOUND, (NO HANDS OR FEET) 2.6 TO 7.5CM, UPPER EXTREMITY performed by SABRINA MEDRANO at [facility] OR ? ? PRO REPAIR INTERMEDIATE S/A/T/E > 30.0 CM Left 04/14/2018 REPAIR INTERMEDIATE WOUND, (NO HANDS OR FEET) >30.0CM, UPPER EXTREMITY (WRVU 5) performed by Yimi Easton MD at [facility] MAIN OR ??? PRO REVISE MEDIAN N/CARPAL TUNNEL SURG Left 04/06/2018 MEDIAN NERVE DECOMPRESSION (CARPAL TUNNEL RELEASE) (WRVU 4.97) performed by Lida Peter MD [facility] MAIN OR ? ? 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 [...] as pending/add-on, please make patient NPO at [facility] on Wednesday. Attending: Plan discussed and agree [...] health management. Pt demonstrating increased ambulation w/ event staff and participating in functional ADL tasks. Pt will benefit from ongoing therapeutic interventions to achieve pt's and therapy goals. Please refer to associated flowsheet data listed below for treatment session details. Staff Recommendations: Encourage OOB activity and participation in all self care tasks Anticipated Discharge Disposition: (P) inpatient rehabilitation facility Pager: [phone] IRLANDA MUNOZ 04/22/2018 Occupational Therapy Rehabilitation Department [...] Level 0 Pain Goal 0 Transfer Assessment/Treatment Heartwell (Sit-Stand Transfers) supervision required Heartwell (Toilet Transfers) supervision required Assistive Device (Toilet Transfers) bracing Impairments (Transfers) strength decreased;balance impaired Comment (Transfers) assist for wound vac during toilet transfer; slightly impulsive Gait Assessment/Treatment Heartwell (Gait) supervision required Distance in Feet (Gait) 25 Impairments (Gait) balance impaired Comment (Gait) recliner <> bathroom ; witnessed pt ambulating unit w/ event staff ~300 Bathing Assessment/Training Comment (Bathing) pt had just completed bathing task prior to this writers arrival; pt reported assisting w/ shower cap and bathing ; Lower Body Dressing Assessment/Training Position (LB Dressing) sitting Heartwell Level (LB Dressing) verbal cues required;nonverbal cues [...] or Care? I am having surgery in [facility]. What Questions Do You Have [...] Home with assist APURVA CASSIDY PTA Pager: [phone] Inpatient Physical Therapy Timed Up & Go [...] 4. Standing to sitting /4 5. Transfers /4 6. Standing with eyes closed /4 7. Standing with feet together /4 8. Reaching forward with outstretched arm /4 9. Retrieving object from floor /4 10. Turning to look behind /4 11. Turning 360 degrees /4 12. Placing alternate foot on stool /4 [...] Assessment/Treatment Assistive Device (Bed Mobility) bed rails Ndrghe-fc-Msd Heartwell (Bed Mobility) conditional independence Comment (Bed Mobility) HOB flat, extra time required Sgk-rd-Rtispi Heartwell (Bed Mobility) conditional independence Transfer Assessment/Treatment Heartwell (Sit-Stand Transfers) supervision required Heartwell (Stand-Sit Transfers) supervision required Och-Nsbdp-Wtz Assistive Device (Transfers) (no device) Maintain Weight Bearing Status (Transfers) cues to maintain weight bearing status Safety Issues (Transfers) balance decreased during turns Impairments (Transfers) balance impaired;strength decreased Comment (Transfers) Initial cues to not use L UE, impulsive, pt held wound vac with R UE Gait Assessment/Treatment Heartwell (Gait) supervision required Assistive Device (Gait) (no [...] to sit/sit to sidelying Bed Mobility Goal, Heartwell Level independent Bed Mobility Goal, Outcome Achieved goal ongoing Gait Training Goal Gait Training Goal, Date Established 04/11/18 Gait Training Goal, Time to Achieve 2 wks Gait Training Goal, Heartwell Level independent Gait Training Goal, Assist Device other (see comments) (LRD ) Gait Training Goal, Distance to Achieve 150 ft Gait Training Goal, Outcome goal ongoing Transfer Training Goal Transfer Training Goal, Date Established 04/11/18 Transfer Training Goal, Time to Achieve 2 wks Transfer Training Goal, Activity Type all transfers Transfer Train Goal, Heartwell Level independent Transfer Training Goal, Assist Device [...] Discharge Disposition: (P) inpatient rehabilitation facility Pager: [phone] IRLANDA MUNOZ 04/20/2018 Occupational Therapy Rehabilitation Department [...] Level 0 Pain Goal 0 Transfer Assessment/Treatment Heartwell (Sit-Stand Transfers) contact guard assist Heartwell (Stand-Sit Transfers) contact guard assist Wcu-Yxcbw-Fqs Assistive Device (Transfers) gait belt Safety Issues (Transfers) balance decreased during turns Impairments (Transfers) balance impaired;strength decreased Comment (Transfers) slightly impulsive at times; cues for safety awareness Gait Assessment/Treatment Heartwell (Gait) verbal cues required;nonverbal cues required (demo/gesture);contact guard assist Assistive Device (Gait) gait belt Distance in Feet (Gait) 300' Safety Issues (Gait) balance decreased during turns;step length decreased Impairments (Gait) balance impaired;strength decreased Comment (Gait) pt required mulit modal cues for directions; slightly impulsive; Lower Body Dressing Assessment/Training Position (LB Dressing) sitting;standing Heartwell Level (LB Dressing) set up required;verbal cues [...] good balance Sitting Balance: Dynamic fair balance Wok-qr-Gurks Balance fair balance Standing Balance: Static fair [...] DVT on coumadin who was transferred to [facility] for hemorrhagic shock with PEA arrest secondary to fistulableeding. He is a limited historian- history taken from chart- He had had some leaking from his LUEAVF site and was found by his mom in a pool of blood, pulseless. He was transfused 6 units of prbcsand transferred to [facility]. He had previous LAVF revision due to [...] father Social History and Habits: Lives in [place] with his mom. Non-smoker (quit 2000). No [...] all extremities Laboratory: Recent Labs 04/20/18 0548 04/19/18 0625 04/18/18 0526 WBC 7.3 5.5 6.4 HGB 7.8* 7.7* 8.0* HCT 23.7* 23.3* 24.6* PLATELET 302 274 305 Recent Labs 04/20/18 0548 04/19/18 0625 04/18/18 [...] Danielle Peoples DO Infectious Disease Fellow Pager [phone] Associated attestation - Katarzyna Guevara MD - [...] Junior MD - 04/19/2018 10:43 AM EDT [facility] Operative Note Patient Name: Christy Ambrose : [id number] MR#: [id number] Case Date: 04/19/2018 Surgeon: Surgeon(s) and Role: [...] Junior MD - 04/19/2018 10:25 AM EDT [facility] Operative Note Patient Name: Christy Ambrose : [id number] MR#: [id number] Case Date: 04/19/2018 Surgeon: Surgeon(s) and Role: [...] 04/18/2018 2:40 PM EDT OFFICE OF CARE MANAGEMENT/Tieing Machine Operator/PROGRESS NOTE e-DH reviewed. Report received from vascular [...] wound base. --Had AVF ultrasound today in [facility] lab to assess AVF --NPO [...] Ongoing (Interventions Implemented as Appropriate) 04/18/18 0804 Daily Care Interventions Self-Care Promotion independence encouraged [...] disoriented to time and place. Impulsive, Call daniles in reach, occasionally used appropriately. Pain managed [...] (Interventions Implemented as Appropriate) 04/15/18 0850 04/15/18 19304/15/18 211 Daily Care Interventions Self-Care Promotion independence encouraged [...] listening utilized Goal: Discharge Needs Assessment 04/08/18 19304/10/18 1602 Discharge Needs Assessment Concerns To Be [...] 04/15/2018 12:36 PM EDT OFFICE OF CARE MANAGEMENT/Tieing Machine Operator/PROGRESS NOTE e-DH reviewed. Report received from vascular [...] Discharge Disposition: (P) inpatient rehabilitation facility Pager: [phone] IRLANDA MUNOZ 04/15/2018 Occupational Therapy Rehabilitation Department [...] PT Pertinent History of Current Problem Christy Ambrose [...] 0 Pain Goal 0 Transfer Assessment/Treatment Bed-Chair Heartwell (Transfers) contact guard assist Cnj-Oeyfk-Cxe Assistive Device (Transfers) (IV pole for support ) Heartwell (Sit-Stand Transfers) set up required;verbal cues required;contact guard assist Heartwell (Stand-Sit Transfers) verbal cues required;contact guard assist Yqh-Rpale-Jtc Assistive Device (Transfers) (IV pole ) Safety Issues (Transfers) sequencing ability decreased;step length decreased;weight-shifting ability decreased Impairments (Transfers) balance impaired;strength decreased Comment (Transfers) cues for safe hand placement and task initation Gait Assessment/Treatment Heartwell (Gait) verbal cues required;contact guard assist Assistive [...] Body Dressing Assessment/Training Position (UB Dressing) sitting Heartwell Level (UB Dressing) contact guard assist Comment (UB Dressing) paco armstrong Grooming Assessment/Training Position (Grooming) sitting Heartwell Level (Grooming) set up required;verbal cues required;contact [...] Please contact Violetta Deng RN on pager [phone] or the wound care team at [phone] or pager [phone] with skin and wound care concerns or [...] for specific details, POC and goals. Recommendations LICENSING SPECIALIST Diet Recommendation: regular solid, thin liquids Therapy Frequency: other (see comments) (D/C from speech intervention.) MIGUEL ANGEL PIERCE, YOUSIF Inpatient Speech Pathologist Pager: [phone] 04/15/18 1011 Rehab Evaluation Document Type therapy [...] Dysphagia Goal, Outcome goal met Clinical Impression LICENSING SPECIALIST Swallowing Diagnosis other (see comments) (Functionally appearing oropharyngeal swallow) Rehab Potential/Prognosis, Swallowing good, to achieve stated therapy goals Therapy Frequency other (see comments) (D/C from speech intervention.) LICENSING SPECIALIST Diet Recommendation regular solid;thin liquids * Plan [...] Precautions/Restrictions: fall, weight bearing Precautions Comments: KEISHA MOON; hx of TBI; wound vac Assessment: Pt [...] inpatient rehabilitation facility APURVA CASSIDY PTA Pager: [phone] Inpatient Physical Therapy 04/15/18 0908 Rehab Evaluation Document Type therapy note (daily [...] cook, clean independently. 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 pt usually ambulates w/o AD, but occasionally will walk w/ cane Pain Scale/Rating Pain Assessment Scale Word (verbal rating pain scale) Pain Level 0 Bed Mobility Assessment/Treatment Assistive Device (Bed Mobility) bed rails Tkmytl-mc-Rls Heartwell (Bed Mobility) supervision required Comment (Bed Mobility) HOB elevated, extra time required Safety Issues (Bed Mobility) decreased use of arms for pushing/pulling Impairments (Bed Mobility) strength decreased Transfer Assessment/Treatment Heartwell (Sit-Stand Transfers) contact guard assist Heartwell (Stand-Sit Transfers) contact guard assist Hqj-Vdqly-Brr Assistive Device (Transfers) (IV pole) Safety Issues (Transfers) balance decreased during turns;step length decreased;loses balance backward Impairments (Transfers) balance impaired;strength decreased Comment (Transfers) Initially falling back onto bed with standing or marching in place, able to steady himself with the IV pole Gait Assessment/Treatment Heartwell (Gait) contact guard assist Assistive Device (Gait) [...] to sit/sit to sidelying Bed Mobility Goal, Heartwell Level independent Bed Mobility Goal, Outcome Achieved goal ongoing Gait Training Goal Gait Training Goal, Date Established 04/11/18 Gait Training Goal, Time to Achieve 2 wks Gait Training Goal, Heartwell Level independent Gait Training Goal, Assist Device other (see comments) (LRD ) Gait Training Goal, Distance to Achieve 150 ft Gait Training Goal, Outcome goal ongoing Transfer Training Goal Transfer Training Goal, Date Established 04/11/18 Transfer Training Goal, Time to Achieve 2 wks Transfer Training Goal, Activity Type all transfers Transfer Train Goal, Heartwell Level independent Transfer Training Goal, Assist Device [...] Ongoing (Interventions Implemented as Appropriate) 04/15/18 0501 Coping/Psychosocial Plan Of Care Reviewed With [...] Ongoing (Interventions Implemented as Appropriate) 04/14/18 0008 04/14/18192104/15/18 050 Catarino Fall Risk History of Falling -- [...] Easton MD - 04/14/2018 8:19 AM EDT [facility] Operative Note Patient Name: Christy Ambrose : [id number] MR#: [id number] Case Date: 04/14/2018 Surgeon: Surgeon(s) and Role: [...] he was found down. [facility] 2 tourniquets on since [...] (Interventions Implemented as Appropriate) 04/13/18 0643 04/13/18 07504/13/18 08 Daily Care Interventions Self-Care Promotion -- [...] Control Outcome: Ongoing (Interventions Implemented as Appropriate) 04/13/1875404/13/18 08 Safety Interventions Isolation Precautions -- standard precautions [...] Conf Outcome: Ongoing (Interventions Implemented as Appropriate) 04/12/18435 Interdisciplinary Rounds/Family Conf Participants nursing;patient;physician Purposeful hourly rounding. * Care Management - North Leong RN - 04/13/2018 1:58 PM EDT Based on discussions with the multi-disciplinary healthcare team, the patient would benefit from rehab/snf level of care at discharge. ?? I have met with the patient/merchandiser retail representative to discuss discharge planning needs. I have provided the [facility], Office of Care Management letter from the [employer] pertaining to rehab referrals. I have also provided a letter describing our affiliations within the [facility] and educated them about their right to choose where referrals are placed. ?? I reviewed the different levels of rehab including SNF, swing, acute and LTAC with the patient/merchandiser retail representative. ?? The patient/merchandiser retail representative has been provided a list of facilities within their preferred geographic area. ?? I have requested that the patient/merchandiser retail representative provide at least three choices for referral. ?? The patient/merchandiser retail representative have requested referrals to: ?? 1. [facility]. ?? 2. [facility] ?? 3. ?? Expected date of discharge: next 24- 48 hours Note routed to [facility] Worker who will communicate referrals to facilities and [...] epilepsy, and prior TBI who presents to [facility] s/p LUE bleeding with PEA arrest. Description [...] Pt intubated in field. Pt taken to [facility], where second tourniquet applied and pt received 6U PRBC. Transferred to [facility]. Per H and P Dr. Burkett. Past Medical History: Diagnosis Date ??? BP (high blood pressure) ??? DVT (deep venous thrombosis) ??? Gout ??? Hypertension ??? Kidney problem ??? Pneumonia ??? TBI (traumatic brain injury) 1980 Hospitalizations Within the Past 30 Days: [facility] Anticipated Length Of Stay (If known): Expected Length of Hospitalization: 5-7 days Current Decision-Making Capacity: Alert but confused. Awakes when I speak but confused when answering. Advance Care Planning: Adv. Directives are from 2010, pt's POA is brother Lucas Ambrose who resides in [facility], pat's 86 year old mother Ilda [...] Insurance: N/A Prescription Coverage: yes Preferred Pharmacy: [facility] in [place], [place]. Primary Care Provider: Carroll Garcia DO [phone] Patient/Caregiver Goals of Treatment: to go to [...] at an acute Rehab Assessment: ASSESSMENT: Christy Ginna Ambrose is a [...] longer needed); will follow up with Transplant Nephrology/[facility] today Plan: to go to acute rehab at discharge. A member of the Care Management team will continue to monitor progress, follow for continuity of care and assist with transition of care planning. North Leong RN Pager: [phone] * Care Management - North Leong RN - 04/12/2018 2:33 PM EDT Based on discussions with the multi-disciplinary healthcare team, the patient would benefit from acute inpatient rehab. level of care at discharge. ?? I have met with the patient/merchandiser retail representative to discuss discharge planning needs. I have provided the [facility], Office of Care Management letter from the [employer] pertaining to rehab referrals. I have also provided a letter describing our affiliations within the [facility] and educated them about their right to choose where referrals are placed. ?? I reviewed the different levels of rehab including SNF, swing, acute and LTAC with the patient/merchandiser retail representative. ?? The patient/merchandiser retail representative has been provided a list of facilities within their preferred geographic area. ?? I have requested that the patient/merchandiser retail representative provide at least three choices for referral. ?? The patient/merchandiser retail representative have requested referrals to: ?? 1. [facility] [place], [place] ?? 2. [facility] ?? 3. [facility]. ?? Expected date of discharge: next 24-72 hours Note routed to [facility] Worker who will communicate referrals to facilities and provide any required information. * Consult Note - Ashlie Willis RPH - 04/12/2018 10:24 AM EDT Clinical Pharmacist Note - Renal Dose Adjustment for Antimicrobials Christy Ambrose (A# [id number]) is being treated with the following antimicrobial [...] Anticipated Discharge Disposition: inpatient rehabilitation facility Pager: [phone] RAFAELA ALONZO OT 04/11/2018 Occupational Therapy Rehabilitation [...] participate Pertinent History of Current Problem Christy Delunaon is a 57 y.o. male w/ [...] Comment Patient lives with his mother at [facility]. Ramp to enter, then elevator to 5th floor. Once inside, single floor. Tub shower, no chair. Regular bed Functional Level Prior Prior Functional Level Comment Reports independence with all ADL/IADL tasks. Drives. Works at the [employer]. Only ambulates with a cane on the [...] Assessment/Treatment Assistive Device (Bed Mobility) bed rails Jlgvsz-fr-Cpf Heartwell (Bed Mobility) minimum assist (75% patient effort) Comment (Bed Mobility) HOB elevated Transfer Assessment/Treatment Heartwell (Sit-Stand Transfers) moderate assist (50% patient effort);2 person assist required;verbal cues required Heartwell (Stand-Sit Transfers) moderate assist (50% patient effort);2 person assist required;verbal cues required Mdc-Mslta-Zvp Assistive Device (Transfers) (Initally stood w/o any AD. Poor balance ) Gait Assessment/Treatment Heartwell (Gait) moderate assist (50% patient effort);2 person [...] Body Dressing Assessment/Training Position (UB Dressing) sitting Heartwell Level (UB Dressing) minimum assist (75% patient effort) Lower Body Dressing Assessment/Training Position (LB Dressing) sitting Heartwell Level (LB Dressing) minimum assist (75% patient [...] training;bed mobility training;ROM (range of motion);strengthening;stretching;transfer training 2017 OT Evaluation Code Rationale: ?? Diagnosis [...] Outcome: Ongoing (Interventions Implemented as Appropriate) 04/08/18 19304/10/18 1602 Discharge Needs Assessment Concerns To Be [...] Conf Participants family;nursing;patient;pharmacy;physician * Consult Note - Vteo Pearl RN - 04/09/2018 4:12 PM EDT Images from the original note were not included. Infiltration/Extravasation Scale Christy Ambrose [id number] IC18/IC18-A Infiltration appearance: Infiltration harm % for [...] to comfort. MD at the Pt's bedside. GLOBAL PROJECT MANAGER CARING FOR THIS PATIENT WILL CONTINUE [...] chair to 2 hour intervals. Use a [employer] chair cushion beneath patient at all times while in the chair. Reinforce teaching to shift weight every 15 minutes while in the chair. Following hospital standard for pressure ulcer prevention and skin care. Refer to adult/pediatric pressure ulcer prevention job aid in the clinical policy library. Wound care will follow weekly. Discussed plan with: RN: Elva Please contact MEAGHAN HOOD RN on pager [phone] or the wound care team at [phone] or pager [phone] with skin and wound care concerns or [...] Therapy Frequency: 2-3 times/wk MIGUEL ANGEL PIERCE, LICENSING SPECIALIST Inpatient Speech Pathologist Pager: [phone] 04/08/18 2203 Rehab Evaluation Document Type evaluation Total Evaluation [...] patient (RN) Speech Language Pathology Goal Types LICENSING SPECIALIST Goal Types Dysphagia Goal (Group) Dysphagia Goal Dysphagia Goal, Date Established 04/08/18 Dysphagia Goal, Time to Achieve by discharge Oral Nutritional Level Goal safely tolerates/maintains adequate oral nutrition;no signs/symptoms ofaspiration present Clinical Impression LICENSING SPECIALIST Swallowing Diagnosis oral dysfunction;other (see comments) (Functionally appearing pharyngeal dysphagia. ) Rehab Potential/Prognosis, Swallowing good, to achieve stated therapy goals Therapy Frequency 2-3 times/wk LICENSING SPECIALIST Diet Recommendation puree;thin liquids * Plan of [...] dose epi. Intubated in field. Arrived at [facility] ED intubated. Received 6 units pRBC. Transferred to [facility] and went to OR with vascular for [...] 4.0CM, TRUNK performed by SABRINA MEDRANO at [facility] OR ??? [...] 4.82) performed by Hay Sparks MD at [facility] OR ??? PRO REPAIR INTERMEDIATE S/A/T/E 2.6-7.5 CM 04/19/2012 REPAIR INTERMEDIATE WOUND, (NO HANDS OR FEET) 2.6 TO 7.5CM, UPPER EXTREMITY performed by SABRINA MEDRANO at [facility] MAIN OR ??? PRO REVISE MEDIAN N/CARPAL TUNNEL SURG Left 04/06/2018 MEDIAN NERVE DECOMPRESSION (CARPAL TUNNEL RELEASE) (WRVU 4.97) performed by Lida Peter MD [facility] MAIN OR ? ? 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 [...] extension 5/5 R, Elbow flexion 5/5 R Fisheries Specialist LE: 5/5 R, 5/5 L Hip flexion [...] Decreased RBC Morphology Abnormal Ovalocytes 1-5 /HPF [place] Cells 1-5 /HPF BLOOD GAS 2 ARTERIAL [...] 04/07/2018 Neurology resident, PGY-3 Vascular Neurology Pager [phone] Standard [facility] Swallow Screen: This screen is to be [...] diet as medical provider deems appropriate. Consider LICENSING SPECIALIST consult for full evaluation and diet recommendations. 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 to [facility] on 04/06/18 for hemorrhagic shock status post PEA Cardiac arrest secondary to AV fistula bleeding. Apparently patient was found at his home unresponsive and was pulseless requiring several rounds of chest compressions,epinephrine and IV fluid bolus with a return of spontaneous circulation.Intubated in the field and taken to [facility] received 6 units of the PRBCs,2 FFPs for hemoglobin of 4 and required 2 tourniquets for his AV fistula leaking. Transferred to [facility] and was taken to OR by vascular [...] 4.0CM, TRUNK performed by SABRINA MEDRANO at [facility] OR ??? PRO LAP, RADICAL NEPHRECTOMY Left 05/31/2017 @LAPAROSCOPY, RADICAL NEPHRECTOMY (WRVU 25.06) performed by Jax Mills MD at [facility] OR ??? PRO REPAIR INTERMEDIATE S/A/T/E 2.6-7.5 CM 04/19/2012 REPAIR INTERMEDIATE WOUND, (NO HANDS OR FEET) 2.6 TO 7.5CM, UPPER EXTREMITY performed by SABRINA MEDRANO at [facility] OR ? ? PRO SPLIT GRFT, HEAD, FAC, HAND, FEET <100SQCM N/A 02/20/2016 SPLIT THICKNESS SKIN SPLIT GRAFT,100SQ CM OR LESS, NECK performed by Miguel Angel Moreno MD at [facility] OR ??? PRO UPPER GI ENDOSCOPY, BIOPSY [...] Latest Ref Range: Clear Hazy (A) Spec [place] UA Latest Ref Range: 1.002 - 1.030 [...] nodes submitted or found IMPRESSION/ RECOMMENDATIONS: Christy Ambrose is a 57 [...] w/ Dr.Chobanian Radha Hughes MD Nephrology Fellow #[id number] * Op Note - Bhargavi Junior MD - 04/07/2018 7:56 AM EDT [facility] Operative Note Patient Name: Chritsy Ambrose : [id number] MR#: [id number] Case Date: 04/06/2018 Surgeon: Surgeon(s) and Role: [...] he was found down. He presented to [facility] in hemorrhagic shock with 2 tourniquets on [...] Implant Name Type Inv. Item Serial No. Power Shovel Operator Helper Lot No. LRB No. Used Action PATCH,BIOL,XENOSURE,.8X8CM ([id number]) - [id number] IMPLANTS PATCH,BIOL,XENOSURE,.8X8CM ([id number]) 0 [facility] [id number] Implanted Infection Bundle used? No, ancef [...] Operative Note Patient Name: Christy Ambrose : [id number] MR#: [id number] Case Date: 04/06/2018 Surgeon: Surgeon(s) and Role: [...] Sparks MD - 04/06/2018 4:00 PM EDT [facility] Operative Note Patient Name: Christy Ambrose : [id number] MR#: [id number] Case Date: 04/06/2018 Surgeon: Surgeon(s) and Role: [...] Routine 04/07/2018 5:56 AM EDT CARDIAC ENZYMES ([facility]) Routine 04/07/2018 5:55 AM EDT HEMOGLOBIN AND [...] IMPLANTABLE DEVICES SCAN 04/06/2018 12:00 AM EDT SENIOR ASSOCIATE SCAN 04/06/2018 12:00 AM EDT FILM LIBRARY STORAGE ONLY CT HEAD AND SPINE STAT 04/06/2018 12:00 AM EDT documented in this encounter Results * (ABNORMAL) Basic Metabolic Panel (non-fasting) (05/04/2018 3:00 AM EDT) Glucose 100 65 - 199 mg/dL [facility] Comment:Diabetes: >=200 mg/d L plus symptoms Blood Urea Nitrogen 40(H) 10 - 20 mg/dL [facility] Creatinine 3.05(H) 0.80 - 1.50 mg/dL [facility] Sodium 131(L) 135 - 145 mmol/L [facility] Potassium 4.1 3.5 - 5.0 mmol/L [facility] Comment: Please note: ??Patients with WBC >100,000 may have falsely elevated Potassium levels. ??For accurate Potassium quantification in these patients send serum separator tube (gold top) for subsequent determinations. ??Contact the Clinical Chemistry Laboratory if there are any questions. Chloride 99 98 - 107 mmol/L [facility] Carbon Dioxide 19(L) 22 - 31 mmol/L [facility] Anion Gap 13 5 - 15 mmol/L [facility] Calcium 8.0(L) 8.5 - 10.5 mg/dL [facility] Est Glomerular Filtration Rate 22(L) >=60 mL/min/1. 73 m?? [facility] Comment: The eGFR was calculated using the CKD-EPI equation. As with all creatinine based estimates of kidney function, eGFR values calculated with the CKD-EPI equation are not accurate in patients with acute kidney failure, extremes of body mass or the acutely ill. [email or web address]nkf eGFR 25(L) >=60 mL/min/1. 73 m?? [facility] Comment: The eGFR was calculated using the CKD-EPI equation. As with all creatinine based estimates of kidney function, eGFR values calculated with the CKD-EPI equation are not accurate in patients with acute kidney failure, extremes of body mass or the acutely ill. [email or web address] Blood specimen (specimen) 05/04/2018 3:00 AM EDT 05/04/2018 3:08 AM EDT Narrative Resulting Agency Comment Spec In Lab Hay Sparks MD CHEMISTRY ORDERABLES Performing Organization Address [facility] Co de Phone Number [facility] [place] [address] * Vancomycin, trough (05/03/2018 6:40 PM EDT) Pathologist [facility] Vancomycin, Trough 14.2 mg/L [facility] Comment: Therapeutic range for complicated [...] Sparks MD CHEMISTRY ORDERABLES Performing Organization Address [facility] Co de Phone Number [facility] [place] [address] * Differential, Automated (05/03/2018 3:06 AM EDT) Pathologist [facility] Neutrophil % 60.8 % [facility] Neutrophil Absolute 3.01 1.70 - 6.10 x10(3)/[facility] Lymph % 19.8 % [facility] Lymphocytes Abs 1.0 0.9 - 3.2 x10(3)/[facility] Monocyte % 10.7 % [facility] Monocyte Abs 0.5 0.3 - 0.9 x10(3)/[facility] Eos % 8.1 % [facility] Eosinophils Abs 0.4 0.0 - 0.4 x10(3)/[facility] Basophil % 0.4 % [facility] Baso Absolute 0.0 0.0 - 0.1 x10(3)/[facility] Immature Gran % 0.20 % [facility] Comment: Immature granulocytes(IG's)percentage and absolute count will include metamyelocytes, myelocytes, and promyelocytes. Blood smears from CBCs yielding IG's will be scanned manually for concordance. If this scan disagrees with the automated IG or if promyelocytes are noted, a manual differential will be performed. Immature Gran Absolute 0.01 0.00 - 0.04 x10(3)/[facility] Blood specimen (specimen) 05/03/2018 3:06 AM EDT 05/03/2018 3:16 AM EDT Narrative Resulting Agency Comment Spec In Lab Apple Gutierrez MD HEMATOLOGY ORDERABLE S [facility] [place] [address] * (ABNORMAL) Hemogram (05/03/2018 3:06 AM EDT) White Blood Cell 5.0 4.0 - 9.5 x10(3)/[facility] Red Blood Cell 2.64(L) 4.58 - 5.54 x10(6)/mc L [facility] Hemoglobin 8.2(L) 13.7 - 16.5 gm/dL [facility] Hematocrit 25.1(L) 40.5 - 48.5 % [facility] Mean Cell Volume 95.1(H) 82.9 - 93.1 [facility] Mean Cell Hemoglobin 31.1 27.5 - 32.[address] [facility] Mean Cell Hemoglobin Concentration 32.7 32.0 - 35.7 gm/dL [facility] Platelet 160 145 - 357 x10(3)/ L [facility] RDW Standard Deviation 54.3(H) 36.0 - 45.0 [facility] RDW coefficient of variation 15.6(H) 11.4 - 13.8 % [facility] Mean Platelet Volume 9.0 7.6 - 12.[address] [facility] NRBC% auto 0.0 % [facility] NRBC Absolute 0.000 0.000 - 0.000 x10(3)/mc L [facility] Blood specimen (specimen) 05/03/2018 3:06 AM EDT 05/03/2018 3:16 AM EDT Narrative Resulting Agency Comment Spec In Lab Apple Gutierrez MD HEMATOLOGY ORDERABLE S [facility] [place] [address] * (ABNORMAL) Basic Metabolic Panel (non-fasting) (05/03/2018 3:06 AM EDT) Glucose 99 65 - 199 mg/dL [facility] Comment:Diabetes: >=200 mg/d L plus symptoms Blood Urea Nitrogen 35(H) 10 - 20 mg/dL [facility] Creatinine 2.58(H) 0.80 - 1.50 mg/dL [facility] Sodium 135 135 - 145 mmol/L [facility] Potassium 4.2 3.5 - 5.0 mmol/L [facility] Comment: Please note: ??Patients with WBC >100,000 may have falsely elevated Potassium levels. ??For accurate Potassium quantification in these patients send serum separator tube (gold top) for subsequent determinations. ??Contact the Clinical Chemistry Laboratory if there are any questions. Chloride 101 98 - 107 mmol/L [facility] Carbon Dioxide 20(L) 22 - 31 mmol/L [facility] Anion Gap 14 5 - 15 mmol/L [facility] Calcium 7.9(L) 8.5 - 10.5 mg/dL [facility] Est Glomerular Filtration Rate 27(L) >=60 mL/min/1. 73 m?? [facility] Comment: The eGFR was calculated using the CKD-EPI equation. As with all creatinine based estimates of kidney function, eGFR values calculated with the CKD-EPI equation are not accurate in patients with acute kidney failure, extremes of body mass or the acutely ill. [email or web address]nkf eGFR 31(L) >=60 mL/min/1. 73 m?? [facility] Comment: The eGFR was calculated using the CKD-EPI equation. As with all creatinine based estimates of kidney function, eGFR values calculated with the CKD-EPI equation are not accurate in patients with acute kidney failure, extremes of body mass or the acutely ill. [email or web address] Blood specimen (specimen) 05/03/2018 3:06 AM EDT 05/03/2018 3:16 AM EDT Narrative Resulting Agency Comment Spec In Lab Hay Sparks MD CHEMISTRY ORDERABLES Performing Organization Address City/State/[facility] Co de Phone Number [facility] [place] [address] * Differential, Automated (05/02/2018 3:20 AM EDT) Neutrophil % 60.2 % [facility] Neutrophil Absolute 2.89 1.70 - 6.10 x10(3)/[facility] Lymph % 20.8 % [facility] Lymphocytes Abs 1.0 0.9 - 3.2 x10(3)/[facility] Monocyte % 9.2 % [facility] Monocyte Abs 0.4 0.3 - 0.9 x10(3)/[facility] Eos % 8.8 % [facility] Eosinophils Abs 0.4 0.0 - 0.4 x10(3)/[facility] Basophil % 0.6 % [facility] Baso Absolute 0.0 0.0 - 0.1 x10(3)/[facility] Immature Gran % 0.40 % [facility] Comment: Immature granulocytes(IG's)percentage and absolute count will include metamyelocytes, myelocytes, and promyelocytes. Blood smears from CBCs yielding IG's will be scanned manually for concordance. If this scan disagrees with the automated IG or if promyelocytes are noted, a manual differential will be performed. Immature Gran Absolute 0.02 0.00 - 0.04 x10(3)/mcL [facility] Blood specimen (specimen) 05/02/2018 3:20 AM EDT 05/02/2018 3:26 AM EDT Narrative Resulting Agency Comment Spec In Lab Apple Gutierrez MD HEMATOLOGY ORDERABLE S [facility] [place] [address] * (ABNORMAL) Hemogram (05/02/2018 3:20 AM EDT) White Blood Cell 4.8 4.0 - 9.5 x10(3)/mc L [facility] Red Blood Cell 2.61(L) 4.58 - 5.54 x10(6)/mc L [facility] Hemoglobin 8.2(L) 13.7 - 16.5 gm/dL [facility] Hematocrit 24.6(L) 40.5 - 48.5 % [facility] Mean Cell Volume 94.3(H) 82.9 - 93.[address] [facility] Mean Cell Hemoglobin 31.4 27.5 - 32.[address] [facility] Mean Cell Hemoglobin Concentration 33.3 32.0 - 35.7 gm/dL [facility] Platelet 168 145 - 357 x10(3)/mc L [facility] RDW Standard Deviation 54.4(H) 36.0 - 45.[address] [facility] RDW coefficient of variation 15.5(H) 11.4 - 13.8 % [facility] Mean Platelet Volume 8.7 7.6 - 12.9 [facility] NRBC% auto 0.0 % [facility] NRBC Absolute 0.000 0.000 - 0.000 x10(3)/mc L [facility] Blood specimen (specimen) 05/02/2018 3:20 AM EDT 05/02/2018 3:26 AM EDT Narrative Resulting Agency Comment Spec In Lab Apple Gutierrez MD HEMATOLOGY ORDERABLE S [facility] [place] [address] * (ABNORMAL) Basic Metabolic Panel (non-fasting) (05/02/2018 3:20 AM EDT) Glucose 94 65 - 199 mg/dL [facility] Comment:Diabetes: >=200 mg/d L plus symptoms Blood Urea Nitrogen 38(H) 10 - 20 mg/dL [facility] Creatinine 2.73(H) 0.80 - 1.50 mg/dL [facility] Sodium 135 135 - 145 mmol/L [facility] Potassium 4.3 3.5 - 5.0 mmol/L [facility] Comment: Please note: ??Patients with WBC >100,000 may have falsely elevated Potassium levels. ??For accurate Potassium quantification in these patients send serum separator tube (gold top) for subsequent determinations. ??Contact the Clinical Chemistry Laboratory if there are any questions. Chloride 103 98 - 107 mmol/L [facility] Carbon Dioxide 19(L) 22 - 31 mmol/L [facility] Anion Gap 13 5 - 15 mmol/L [facility] Calcium 7.7(L) 8.5 - 10.5 mg/dL [facility] Est Glomerular Filtration Rate 25(L) >=60 mL/min/1. 73 m?? [facility] Comment: The eGFR was calculated using the CKD-EPI equation. As with all creatinine based estimates of kidney function, eGFR values calculated with the CKD-EPI equation are not accurate in patients with acute kidney failure, extremes of body mass or the acutely ill. [email or web address]nkf eGFR 29(L) >=60 mL/min/1. 73 m?? [facility] Comment: The eGFR was calculated using the CKD-EPI equation. As with all creatinine based estimates of kidney function, eGFR values calculated with the CKD-EPI equation are not accurate in patients with acute kidney failure, extremes of body mass or the acutely ill. [email or web address] Blood specimen (specimen) 05/02/2018 3:20 AM EDT 05/02/2018 3:25 AM EDT Narrative Resulting Agency Comment Spec In Lab Hay Sparks MD CHEMISTRY ORDERABLES [facility] [place] [address] * Differential, Automated (05/01/2018 4:00 AM EDT) Neutrophil % 60.0 % [facility] Neutrophil Absolute 2.98 1.70 - 6.10 x10(3)/[facility] Lymph % 21.2 % [facility] Lymphocytes Abs 1.0 0.9 - 3.2 x10(3)/[facility] Monocyte % 9.7 % [facility] Monocyte Abs 0.5 0.3 - 0.9 x10(3)/[facility] Eos % 8.1 % [facility] Eosinophils Abs 0.4 0.0 - 0.4 x10(3)/[facility] Basophil % 0.8 % [facility] Baso Absolute 0.0 0.0 - 0.1 x10(3)/[facility] Immature Gran % 0.20 % [facility] Comment: Immature granulocytes(IG's)percentage and absolute count will include metamyelocytes, myelocytes, and promyelocytes. Blood smears from CBCs yielding IG's will be scanned manually for concordance. If this scan disagrees with the automated IG or if promyelocytes are noted, a manual differential will be performed. Immature Gran Absolute 0.01 0.00 - 0.04 x10(3)/mcL [facility] Blood specimen (specimen) 05/01/2018 4:00 AM EDT 05/01/2018 4:13 AM EDT Narrative Resulting Agency Comment Spec In Lab Apple Gutierrez MD HEMATOLOGY ORDERABLE S [facility] [place] [address] * (ABNORMAL) Hemogram (05/01/2018 4:00 AM EDT) White Blood Cell 5.0 4.0 - 9.5 x10(3)/[facility] Red Blood Cell 2.71(L) 4.58 - 5.54 x10(6)/[facility] Hemoglobin 8.2(L) 13.7 - 16.5 gm/dL [facility] Hematocrit 25.6(L) 40.5 - 48.5 % [facility] Mean Cell Volume 94.5(H) 82.9 - 93.1 [facility] Mean Cell Hemoglobin 30.3 27.5 - 32.[address] [facility] Mean Cell Hemoglobin Concentration 32.0 32.0 - 35.7 gm/dL [facility] Platelet 192 145 - 357 x10(3)/[facility] RDW Standard Deviation 53.5(H) 36.0 - 45.0 [facility] RDW coefficient of variation 15.5(H) 11.4 - 13.8 % [facility] Mean Platelet Volume 8.9 7.6 - 12.9 [facility] NRBC% auto 0.0 % [facility] NRBC Absolute 0.000 0.000 - 0.000 x10(3)/ L [facility] Blood specimen (specimen) 05/01/2018 4:00 AM EDT 05/01/2018 4:13 AM EDT Narrative Resulting Agency Comment Spec In Lab Apple Gutierrez MD HEMATOLOGY ORDERABLE S [facility] [place] [address] * (ABNORMAL) Basic Metabolic Panel (non-fasting) (05/01/2018 4:00 AM EDT) Glucose 101 65 - 199 mg/dL [facility] Comment:Diabetes: >=200 mg/d L plus symptoms Blood Urea Nitrogen 36(H) 10 - 20 mg/dL [facility] Creatinine 2.66(H) 0.80 - 1.50 mg/dL [facility] Sodium 134(L) 135 - 145 mmol/L [facility] Potassium 3.9 3.5 - 5.0 mmol/L [facility] Comment: Please note: ??Patients with WBC >100,000 may have falsely elevated Potassium levels. ??For accurate Potassium quantification in these patients send serum separator tube (gold top) for subsequent determinations. ??Contact the Clinical Chemistry Laboratory if there are any questions. Chloride 101 98 - 107 mmol/L [facility] Carbon Dioxide 19(L) 22 - 31 mmol/L [facility] Anion Gap 14 5 - 15 mmol/L [facility] Calcium 8.0(L) 8.5 - 10.5 mg/dL [facility] Est Glomerular Filtration Rate 26(L) >=60 mL/min/1. 73 m?? [facility] Comment: The eGFR was calculated using the CKD-EPI equation. As with all creatinine based estimates of kidney function, eGFR values calculated with the CKD-EPI equation are not accurate in patients with acute kidney failure, extremes of body mass or the acutely ill. [email or web address] eGFR 30(L) >=60 mL/min/1. 73 m?? [facility] Comment: The eGFR was calculated using the CKD-EPI equation. As with all creatinine based estimates of kidney function, eGFR values calculated with the CKD-EPI equation are not accurate in patients with acute kidney failure, extremes of body mass or the acutely ill. [email or web address] Blood specimen (specimen) 05/01/2018 4:00 AM EDT 05/01/2018 4:13 AM EDT Narrative Resulting Agency Comment Spec In Lab Hay Sparks MD CHEMISTRY ORDERABLES Performing Organization Address [facility] de Phone Number [facility] [place] [address] * Vancomycin, trough (04/30/2018 7:05 PM EDT) Pathologist [facility] Vancomycin, Trough 15.3 mg/L [facility] Comment: Therapeutic range for complicated [...] Sparks MD CHEMISTRY ORDERABLES Performing Organization Address [facility] de Phone Number [facility] [place] [address] * Differential, Automated (04/30/2018 2:55 AM EDT) Neutrophil % 60.3 % [facility] Neutrophil Absolute 3.15 1.70 - 6.10 x10(3)/[facility] Lymph % 22.8 % [facility] Lymphocytes Abs 1.2 0.9 - 3.2 x10(3)/[facility] Monocyte % 10.2 % [facility] Monocyte Abs 0.5 0.3 - 0.9 x10(3)/[facility] Eos % 5.7 % [facility] Eosinophils Abs 0.3 0.0 - 0.4 x10(3)/[facility] Basophil % 0.6 % [facility] Baso Absolute 0.0 0.0 - 0.1 x10(3)/[facility] Immature Gran % 0.40 % [facility] Comment: Immature granulocytes(IG's)percentage and absolute count will include metamyelocytes, myelocytes, and promyelocytes. Blood smears from CBCs yielding IG's will be scanned manually for concordance. If this scan disagrees with the automated IG or if promyelocytes are noted, a manual differential will be performed. Immature Gran Absolute 0.02 0.00 - 0.04 x10(3)/[facility] Blood specimen (specimen) 04/30/2018 2:55 AM EDT 04/30/2018 3:06 AM EDT Narrative Resulting Agency Comment Spec In Lab Apple Gutierrez MD HEMATOLOGY ORDERABLE S [facility] [place] [address] * (ABNORMAL) Hemogram (04/30/2018 2:55 AM EDT) White Blood Cell 5.2 4.0 - 9.5 x10(3)/mc L [facility] Red Blood Cell 2.53(L) 4.58 - 5.54 x10(6)/mc L [facility] Hemoglobin 7.9(L) 13.7 - 16.5 gm/dL [facility] Hematocrit 24.3(L) 40.5 - 48.5 % [facility] Mean Cell Volume 96.0(H) 82.9 - 93.[address] [facility] Mean Cell Hemoglobin 31.2 27.5 - 32.[address] [facility] Mean Cell Hemoglobin Concentration 32.5 32.0 - 35.7 gm/dL [facility] Platelet 186 145 - 357 x10(3)/mc L [facility] RDW Standard Deviation 54.7(H) 36.0 - 45.[address] [facility] RDW coefficient of variation 15.6(H) 11.4 - 13.8 % [facility] Mean Platelet Volume 8.7 7.6 - 12.[address] [facility] NRBC% auto 0.0 % [facility] NRBC Absolute 0.000 0.000 - 0.000 x10(3)/mc L [facility] Blood specimen (specimen) 04/30/2018 2:55 AM EDT 04/30/2018 3:06 AM EDT Narrative Resulting Agency Comment Spec In Lab Apple Gutierrez MD HEMATOLOGY ORDERABLE S [facility] [place] [id number] * (ABNORMAL) Basic Metabolic Panel (non-fasting) (04/30/2018 2:55 AM EDT) Glucose 96 65 - 199 mg/dL [facility] Comment:Diabetes: >=200 mg/d L plus symptoms Blood Urea Nitrogen 39(H) 10 - 20 mg/dL [facility] Creatinine 2.94(H) 0.80 - 1.50 mg/dL [facility] Sodium 135 135 - 145 mmol/L [facility] Potassium 4.5 3.5 - 5.0 mmol/L [facility] Comment: Please note: ??Patients with WBC >100,000 may have falsely elevated Potassium levels. ??For accurate Potassium quantification in these patients send serum separator tube (gold top) for subsequent determinations. ??Contact the Clinical Chemistry Laboratory if there are any questions. Chloride 100 98 - 107 mmol/L [facility] Carbon Dioxide 21(L) 22 - 31 mmol/L [facility] Anion Gap 14 5 - 15 mmol/L [facility] Calcium 8.1(L) 8.5 - 10.5 mg/dL [facility] Est Glomerular Filtration Rate 23(L) >=60 mL/min/1. 73 m?? [facility] Comment: The eGFR was calculated using the CKD-EPI equation. As with all creatinine based estimates of kidney function, eGFR values calculated with the CKD-EPI equation are not accurate in patients with acute kidney failure, extremes of body mass or the acutely ill. [email or web address]nk[facility] eGFR 26(L) >=60 mL/min/1. 73 m?? [facility] Comment: The eGFR was calculated using the CKD-EPI equation. As with all creatinine based estimates of kidney function, eGFR values calculated with the CKD-EPI equation are not accurate in patients with acute kidney failure, extremes of body mass or the acutely ill. [email or web address] Blood specimen (specimen) 04/30/2018 2:55 AM EDT 04/30/2018 3:06 AM EDT Narrative Resulting Agency Comment Spec In Lab Hay Sparks MD CHEMISTRY ORDERABLES [facility] [place] [address] * Vancomycin, trough (04/29/2018 5:15 PM EDT) Vancomycin, Trough 15.9 mg/L [facility] Comment: Therapeutic range for [...] MD CHEMISTRY ORDERAB LES Performing Organization Address [facility] de Phone Number [facility] [place] [address] * Vancomycin, trough (04/29/2018 6:55 AM EDT) Pathologist [facility] Vancomycin, Trough 19.5 mg/L [facility] Comment: Therapeutic range for complicated [...] Sparks MD CHEMISTRY ORDERABLES Performing Organization Address [facility] Co de Phone Number [facility] [place] [address] * Differential, Automated (04/29/2018 5:40 AM EDT) Neutrophil % 63.0 % [facility] Neutrophil Absolute 3.22 1.70 - 6.10 x10(3)/[facility] Lymph % 21.1 % [facility] Lymphocytes Abs 1.1 0.9 - 3.2 x10(3)/[facility] Monocyte % 9.0 % [facility] Monocyte Abs 0.5 0.3 - 0.9 x10(3)/[facility] Eos % 5.5 % [facility] Eosinophils Abs 0.3 0.0 - 0.4 x10(3)/[facility] Basophil % 0.8 % [facility] Baso Absolute 0.0 0.0 - 0.1 x10(3)/[facility] Immature Gran % 0.60 % [facility] Comment: Immature granulocytes(IG's)percentage and absolute count will include metamyelocytes, myelocytes, and promyelocytes. Blood smears from CBCs yielding IG's will be scanned manually for concordance. If this scan disagrees with the automated IG or if promyelocytes are noted, a manual differential will be performed. Immature Gran Absolute 0.03 0.00 - 0.04 x10(3)/[facility] Blood specimen (specimen) 04/29/2018 5:40 AM EDT 04/29/2018 6:11 AM EDT Narrative Resulting Agency Comment Spec In Lab Apple Gutierrez MD HEMATOLOGY ORDERABLE S Performing Organization Address City/State/[facility] Co de Phone Number [facility] [place] [address] * (ABNORMAL) Hemogram (04/29/2018 5:40 AM EDT) White Blood Cell 5.1 4.0 - 9.5 x10(3)/[facility] Red Blood Cell 2.56(L) 4.58 - 5.54 x10(6)/ L [facility] Hemoglobin 7.7(L) 13.7 - 16.5 gm/dL [facility] Hematocrit 24.2(L) 40.5 - 48.5 % [facility] Mean Cell Volume 94.5(H) 82.9 - 93.[address] [facility] Mean Cell Hemoglobin 30.1 27.5 - 32.[address] [facility] Mean Cell Hemoglobin Concentration 31.8(L) 32.0 - 35.7 gm/dL [facility] Platelet 216 145 - 357 x10(3)/ L [facility] RDW Standard Deviation 53.7(H) 36.0 - 45.[address] [facility] RDW coefficient of variation 15.4(H) 11.4 - 13.8 % [facility] Mean Platelet Volume 8.9 7.6 - 12.[address] [facility] NRBC% auto 0.0 % [facility] NRBC Absolute 0.000 0.000 - 0.000 x10(3)/mc L [facility] Blood specimen (specimen) 04/29/2018 5:40 AM EDT 04/29/2018 6:11 AM EDT Narrative Resulting Agency Comment Spec In Lab Apple Gutierrez MD HEMATOLOGY ORDERABLE S [facility] [place] [address] * (ABNORMAL) Basic Metabolic Panel (non-fasting) (04/29/2018 5:40 AM EDT) Glucose 91 65 - 199 mg/dL [facility] Comment:Diabetes: >=200 mg/d L plus symptoms Blood Urea Nitrogen 41(H) 10 - 20 mg/dL [facility] Creatinine 2.51(H) 0.80 - 1.50 mg/dL [facility] Sodium 136 135 - 145 mmol/L [facility] Potassium 4.9 3.5 - 5.0 mmol/L [facility] Comment: Please note: ??Patients with WBC >100,000 may have falsely elevated Potassium levels. ??For accurate Potassium quantification in these patients send serum separator tube (gold top) for subsequent determinations. ??Contact the Clinical Chemistry Laboratory if there are any questions. Chloride 104 98 - 107 mmol/L [facility] Carbon Dioxide 21(L) 22 - 31 mmol/L [facility] Anion Gap 11 5 - 15 mmol/L [facility] Calcium 8.0(L) 8.5 - 10.5 mg/dL [facility] Est Glomerular Filtration Rate 28(L) >=60 mL/min/1. 73 m?? [facility] Comment: The eGFR was calculated using the CKD-EPI equation. As with all creatinine based estimates of kidney function, eGFR values calculated with the CKD-EPI equation are not accurate in patients with acute kidney failure, extremes of body mass or the acutely ill. [email or web address]nkf eGFR 32(L) >=60 mL/min/1. 73 m?? [facility] Comment: The eGFR was calculated using the CKD-EPI equation. As with all creatinine based estimates of kidney function, eGFR values calculated with the CKD-EPI equation are not accurate in patients with acute kidney failure, extremes of body mass or the acutely ill. [email or web address]nkf Blood specimen (specimen) 04/29/2018 5:40 AM EDT 04/29/2018 6:11 AM EDT Narrative Resulting Agency Comment Spec In Lab Hay Sparks MD CHEMISTRY ORDERABLES [facility] [place] [address] * (ABNORMAL) Vancomycin, trough (04/28/2018 1:09 PM EDT) Vancomycin, Trough 21.6(Crit ical) mg/L [facility] Comment: Called by: MASSIEL, Read [...] Sparks MD CHEMISTRY ORDERABLES Performing Organization Address [facility] Co de Phone Number [facility] [place] [address] * EKG 12 Lead (04/28/2018 7:17 AM EDT) Ventricular rate 51 BPM MUSE SYSTEM Atrial Rate 51 BPM MUSE SYSTEM P-R Interval 162 ms MUSE SYSTEM QRS Duration 92 ms MUSE SYSTEM Q-T Interval 442 ms MUSE SYSTEM QTC Calculated (Bezet) 407 ms MUSE SYSTEM Calculated P [place] 59 degrees MUSE SYSTEM Calculated R [place] 35 degrees MUSE SYSTEM Calculated T [place] 34 degrees MUSE SYSTEM INTERPRETATION Sinus bradycardia Otherwise normal ECG When compared with ECG of 26-MAY-2017 11:16, No significant change was found Confirmed by MD Aure, Sukumar Rubi ([id number]) on 04/29/2018 1:34:03 PM MUSE SYSTEM 04/28/2018 7:17 AM EDT 04/29/2018 1:34 PM EDT Chase Olvera MD ECG ORDERABLES Performing Organization Address [facility] Co de Phone Number MUSE SYSTEM * Differential, Automated (04/28/2018 4:40 AM EDT) Neutrophil % 66.6 % [facility] Neutrophil Absolute 4.11 1.70 - 6.10 x10(3)/[facility] Lymph % 23.5 % [facility] Lymphocytes Abs 1.4 0.9 - 3.2 x10(3)/[facility] Monocyte % 7.8 % [facility] Monocyte Abs 0.5 0.3 - 0.9 x10(3)/[facility] Eos % 1.5 % [facility] Eosinophils Abs 0.1 0.0 - 0.4 x10(3)/[facility] Basophil % 0.3 % [facility] Baso Absolute 0.0 0.0 - 0.1 x10(3)/[facility] Immature Gran % 0.30 % [facility] Comment: Immature granulocytes(IG's)percentage and absolute count will include metamyelocytes, myelocytes, and promyelocytes. Blood smears from CBCs yielding IG's will be scanned manually for concordance. If this scan disagrees with the automated IG or if promyelocytes are noted, a manual differential will be performed. Immature Gran Absolute 0.02 0.00 - 0.04 x10(3)/mcL [facility] Blood specimen (specimen) 04/28/2018 4:40 AM EDT 04/28/2018 4:53 AM EDT Narrative Resulting Agency Comment Spec In Lab Apple Gutierrez MD HEMATOLOGY ORDERABLE S [facility] [place] [address] * (ABNORMAL) Hemogram (04/28/2018 4:40 AM EDT) White Blood Cell 6.2 4.0 - 9.5 x10(3)/mc L [facility] Red Blood Cell 2.54(L) 4.58 - 5.54 x10(6)/mc L [facility] Hemoglobin 7.6(L) 13.7 - 16.5 gm/dL [facility] Hematocrit 24.3(L) 40.5 - 48.5 % [facility] Mean Cell Volume 95.7(H) 82.9 - 93.[address] [facility] Mean Cell Hemoglobin 29.9 27.5 - 32.[address] [facility] Mean Cell Hemoglobin Concentration 31.3(L) 32.0 - 35.7 gm/dL [facility] Platelet 249 145 - 357 x10(3)/mc L [facility] RDW Standard Deviation 55.3(H) 36.0 - 45.[address] [facility] RDW coefficient of variation 15.6(H) 11.4 - 13.8 % [facility] Mean Platelet Volume 8.7 7.6 - 12.[address] [facility] NRBC% auto 0.0 % [facility] NRBC Absolute 0.000 0.000 - 0.000 x10(3)/mc L [facility] Blood specimen (specimen) 04/28/2018 4:40 AM EDT 04/28/2018 4:53 AM EDT Narrative Resulting Agency Comment Spec In Lab Apple Gutierrez MD HEMATOLOGY ORDERABLE S [facility] [place] [address] * (ABNORMAL) Basic Metabolic Panel (non-fasting) (04/28/2018 4:40 AM EDT) Glucose 94 65 - 199 mg/dL [facility] Comment:Diabetes: >=200 mg/d L plus symptoms Blood Urea Nitrogen 44(H) 10 - 20 mg/dL [facility] Creatinine 2.80(H) 0.80 - 1.50 mg/dL [facility] Sodium 133(L) 135 - 145 mmol/L [facility] Potassium 4.9 3.5 - 5.0 mmol/L [facility] Comment: Please note: ??Patients with WBC >100,000 may have falsely elevated Potassium levels. ??For accurate Potassium quantification in these patients send serum separator tube (gold top) for subsequent determinations. ??Contact the Clinical Chemistry Laboratory if there are any questions. Chloride 101 98 - 107 mmol/L [facility] Carbon Dioxide 20(L) 22 - 31 mmol/L [facility] Anion Gap 12 5 - 15 mmol/L [facility] Calcium 8.1(L) 8.5 - 10.5 mg/dL [facility] Est Glomerular Filtration Rate 24(L) >=60 mL/min/1. 73 m?? [facility] Comment: The eGFR was calculated using the CKD-EPI equation. As with all creatinine based estimates of kidney function, eGFR values calculated with the CKD-EPI equation are not accurate in patients with acute kidney failure, extremes of body mass or the acutely ill. [email or web address]nkf eGFR 28(L) >=60 mL/min/1. 73 m?? [facility] Comment: The eGFR was calculated using the CKD-EPI equation. As with all creatinine based estimates of kidney function, eGFR values calculated with the CKD-EPI equation are not accurate in patients with acute kidney failure, extremes of body mass or the acutely ill. [email or web address] Blood specimen (specimen) 04/28/2018 4:40 AM EDT 04/28/2018 4:53 AM EDT Narrative Resulting Agency Comment Spec In Lab Hay Sparks MD CHEMISTRY ORDERABLES Performing Organization Address [facility] Co de Phone Number [facility] [place] [address] * Vancomycin, trough (04/27/2018 1:30 PM EDT) Pathologist [facility] Vancomycin, Trough 11.1 mg/L [facility] Comment: Therapeutic range for [...] Sparks MD CHEMISTRY ORDERABLES Performing Organization Address [facility] Co de Phone Number [facility] [place] [address] * XR PICC Placement Over 5 Years [...] 4:43 AM EDT) Neutrophil % 84.4 % [facility] Neutrophil Absolute 4.96 1.70 - 6.10 x10(3)/mc L [facility] Lymph % 9.7 % [facility] Lymphocytes Abs 0.6(L) 0.9 - 3.2 x10(3)/mc L [facility] Monocyte % 5.5 % [facility] Monocyte Abs 0.3 0.3 - 0.9 x10(3)/mc L [facility] Eos % 0.0 % [facility] Eosinophils Abs 0.0 0.0 - 0.4 x10(3)/mc L [facility] Basophil % 0.2 % [facility] Baso Absolute 0.0 0.0 - 0.1 x10(3)/mc L [facility] Immature Gran % 0.20 % [facility] Comment: Immature granulocytes(IG's)percentage and absolute count will include metamyelocytes, myelocytes, and promyelocytes. Blood smears from CBCs yielding IG's will be scanned manually for concordance. If this scan disagrees with the automated IG or if promyelocytes are noted, a manual differential will be performed. Immature Gran Absolute 0.01 0.00 - 0.04 x10(3)/[facility] Blood specimen (specimen) 04/27/2018 4:43 AM EDT 04/27/2018 5:16 AM EDT Narrative Resulting Agency Comment Spec In Lab Apple Gutierrez MD HEMATOLOGY ORDERABLE S [facility] [place] [address] * (ABNORMAL) Hemogram (04/27/2018 4:43 AM EDT) White Blood Cell 5.9 4.0 - 9.5 x10(3)/[facility] Red Blood Cell 2.81(L) 4.58 - 5.54 x10(6)/ L [facility] Hemoglobin 8.8(L) 13.7 - 16.5 gm/dL [facility] Hematocrit 27.0(L) 40.5 - 48.5 % [facility] Mean Cell Volume 96.1(H) 82.9 - 93.[address] [facility] Mean Cell Hemoglobin 31.3 27.5 - 32.[address] [facility] Mean Cell Hemoglobin Concentration 32.6 32.0 - 35.7 gm/dL [facility] Platelet 302 145 - 357 x10(3)/[facility] RDW Standard Deviation 54.9(H) 36.0 - 45.[address] [facility] RDW coefficient of variation 15.5(H) 11.4 - 13.8 % [facility] Mean Platelet Volume 8.8 7.6 - 12.[address] [facility] NRBC% auto 0.0 % [facility] NRBC Absolute 0.000 0.000 - 0.000 x10(3)/mc L [facility] Blood specimen (specimen) 04/27/2018 4:43 AM EDT 04/27/2018 5:16 AM EDT Narrative Resulting Agency Comment Spec In Lab Apple Gutierrez MD HEMATOLOGY ORDERABLE S [facility] [place] [address] * (ABNORMAL) Basic Metabolic Panel (non-fasting) (04/27/2018 4:43 AM EDT) Glucose 142 65 - 199 mg/dL [facility] Comment:Diabetes: >=200 mg/d L plus symptoms Blood Urea Nitrogen 41(H) 10 - 20 mg/dL [facility] Creatinine 2.81(H) 0.80 - 1.50 mg/dL [facility] Sodium 132(L) 135 - 145 mmol/L [facility] Potassium 5.6(H) 3.5 - 5.0 mmol/L [facility] Comment: Please note: ??Patients with WBC >100,000 may have falsely elevated Potassium levels. ??For accurate Potassium quantification in these patients send serum separator tube (gold top) for subsequent determinations. ??Contact the Clinical Chemistry Laboratory if there are any questions. Chloride 101 98 - 107 mmol/L [facility] Carbon Dioxide 18(L) 22 - 31 mmol/L [facility] Anion Gap 13 5 - 15 mmol/L [facility] Calcium 8.4(L) 8.5 - 10.5 mg/dL [facility] Est Glomerular Filtration Rate 24(L) >=60 mL/min/1. 73 m?? [facility] Comment: The eGFR was calculated using the CKD-EPI equation. As with all creatinine based estimates of kidney function, eGFR values calculated with the CKD-EPI equation are not accurate in patients with acute kidney failure, extremes of body mass or the acutely ill. [email or web address]nkf eGFR 28(L) >=60 mL/min/1. 73 m?? [facility] Comment: The eGFR was calculated using the CKD-EPI equation. As with all creatinine based estimates of kidney function, eGFR values calculated with the CKD-EPI equation are not accurate in patients with acute kidney failure, extremes of body mass or the acutely ill. [email or web address]nkf Blood specimen (specimen) 04/27/2018 4:43 AM EDT 04/27/2018 5:16 AM EDT Narrative Resulting Agency Comment Spec In Lab Hay Sparks MD CHEMISTRY ORDERABLES Performing Organization Address City/State/[facility] Co de Phone Number [facility] [place] [address] * (ABNORMAL) Hemogram (04/26/2018 3:09 PM EDT) White Blood Cell 4.8 4.0 - 9.5 x10(3)/mc L [facility] Red Blood Cell 2.90(L) 4.58 - 5.54 x10(6)/mc L [facility] Hemoglobin 8.8(L) 13.7 - 16.5 gm/dL [facility] Hematocrit 27.5(L) 40.5 - 48.5 % [facility] Mean Cell Volume 94.8(H) 82.9 - 93.[address] [facility] Mean Cell Hemoglobin 30.3 27.5 - 32.[address] [facility] Mean Cell Hemoglobin Concentration 32.0 32.0 - 35.7 gm/dL [facility] Platelet 273 145 - 357 x10(3)/mc L [facility] RDW Standard Deviation 55.8(H) 36.0 - 45.[address] [facility] RDW coefficient of variation 15.9(H) 11.4 - 13.8 % [facility] Mean Platelet Volume 9.1 7.6 - 12.[address] [facility] NRBC% auto 0.0 % [facility] NRBC Absolute 0.000 0.000 - 0.000 x10(3)/mc L [facility] Blood specimen (specimen) 04/26/2018 3:09 PM EDT 04/26/2018 3:16 PM EDT Narrative Resulting Agency Comment Spec In Lab Chase Olvera MD HEMATOLOGY ORDERA BLES Performing Organization Address [facility]/ZIP Co de Phone Number [facility] [place] [address] * Vancomycin, trough (04/26/2018 2:15 PM EDT) Pathologist [facility] Vancomycin, Trough 11.8 mg/L [facility] Comment: Therapeutic range for complicated [...] Sparks MD CHEMISTRY ORDERABLES Performing Organization Address City/[facility]/ZIP Co de Phone Number [facility] [place] [address] * ABORH Recheck Status (04/26/2018 11:42 AM EDT) ABORH Type Recheck Completed [facility] Blood specimen (specimen) 04/26/2018 11:42 AM EDT 04/26/2018 11:42 AM EDT Narrative Resulting Agency Comment Spec In Lab Natalya Jacobsen MD BLOOD BANK LAB ORDER KELLY Performing Organization Address City/[facility]/ZIP Co de Phone Number [facility] [place] [address] * Antibody screen (04/26/2018 11:42 AM EDT) Ab Screen Interp Negative [facility] Expires at [id number] on: 04/29/2018 [facility] Blood specimen (specimen) 04/26/2018 11:42 AM EDT 04/26/2018 11:42 AM EDT Narrative Resulting Agency Comment Spec In Lab Natalya Jacobsen MD BLOOD BANK LAB ORDER KELLY Performing Organization Address City/[facility]/ZIP Co de Phone Number [facility] [place] [address] * ABO/Rh Typing (04/26/2018 11:42 AM EDT) ABORH Type A Pos [facility] Blood specimen (specimen) 04/26/2018 11:42 AM EDT 04/26/2018 11:42 AM EDT Narrative Resulting Agency Comment Spec In Lab Natalya Jacobsen MD BLOOD BANK LAB ORDER KELLY Performing Organization Address City/[facility]/ZIP Co de Phone Number [facility] [place] [address] * Differential, Automated (04/26/2018 4:39 AM EDT) Neutrophil % 55.1 % [facility] Neutrophil Absolute 2.56 1.70 - 6.10 x10(3)/[facility] Lymph % 27.7 % [facility] Lymphocytes Abs 1.3 0.9 - 3.2 x10(3)/[facility] Monocyte % 10.5 % [facility] Monocyte Abs 0.5 0.3 - 0.9 x10(3)/[facility] Eos % 5.2 % [facility] Eosinophils Abs 0.2 0.0 - 0.4 x10(3)/[facility] Basophil % 1.3 % [facility] Baso Absolute 0.1 0.0 - 0.1 x10(3)/[facility] Immature Gran % 0.20 % [facility] Comment: Immature granulocytes(IG's)percentage and absolute count will include metamyelocytes, myelocytes, and promyelocytes. Blood smears from CBCs yielding IG's will be scanned manually for concordance. If this scan disagrees with the automated IG or if promyelocytes are noted, a manual differential will be performed. Immature Gran Absolute 0.01 0.00 - 0.04 x10(3)/[facility] Blood specimen (specimen) 04/26/2018 4:39 AM EDT 04/26/2018 4:58 AM EDT Narrative Resulting Agency Comment Spec In Lab Apple Gutierrez MD HEMATOLOGY ORDERABLE S [facility] [place] [address] * (ABNORMAL) Hemogram (04/26/2018 4:39 AM EDT) White Blood Cell 4.6 4.0 - 9.5 x10(3)/mc L [facility] Red Blood Cell 2.58(L) 4.58 - 5.54 x10(6)/mc L [facility] Hemoglobin 7.9(L) 13.7 - 16.5 gm/dL [facility] Hematocrit 24.6(L) 40.5 - 48.5 % [facility] Mean Cell Volume 95.3(H) 82.9 - 93.[address] [facility] Mean Cell Hemoglobin 30.6 27.5 - 32.[address] [facility] Mean Cell Hemoglobin Concentration 32.1 32.0 - 35.7 gm/dL [facility] Platelet 253 145 - 357 x10(3)/mc L [facility] RDW Standard Deviation 54.4(H) 36.0 - 45.0 [facility] RDW coefficient of variation 15.7(H) 11.4 - 13.8 % [facility] Mean Platelet Volume 8.4 7.6 - 12.[address] [facility] NRBC% auto 0.0 % [facility] NRBC Absolute 0.000 0.000 - 0.000 x10(3)/mc L [facility] Blood specimen (specimen) 04/26/2018 4:39 AM EDT 04/26/2018 4:58 AM EDT Narrative Resulting Agency Comment Spec In Lab Apple Gutierrez MD HEMATOLOGY ORDERABLE S [facility] [place] [address] * (ABNORMAL) Basic Metabolic Panel (non-fasting) (04/26/2018 4:39 AM EDT) Glucose 93 65 - 199 mg/dL [facility] Comment:Diabetes: >=200 mg/d L plus symptoms Blood Urea Nitrogen 37(H) 10 - 20 mg/dL [facility] Creatinine 2.80(H) 0.80 - 1.50 mg/dL [facility] Sodium 138 135 - 145 mmol/L [facility] Potassium 5.2(H) 3.5 - 5.0 mmol/L [facility] Comment: Please note: ??Patients with WBC >100,000 may have falsely elevated Potassium levels. ??For accurate Potassium quantification in these patients send serum separator tube (gold top) for subsequent determinations. ??Contact the Clinical Chemistry Laboratory if there are any questions. Chloride 106 98 - 107 mmol/L [facility] Carbon Dioxide 19(L) 22 - 31 mmol/L [facility] Anion Gap 13 5 - 15 mmol/L [facility] Calcium 8.2(L) 8.5 - 10.5 mg/dL [facility] Est Glomerular Filtration Rate 24(L) >=60 mL/min/1. 73 m?? [facility] Comment: The eGFR was calculated using the CKD-EPI equation. As with all creatinine based estimates of kidney function, eGFR values calculated with the CKD-EPI equation are not accurate in patients with acute kidney failure, extremes of body mass or the acutely ill. [email or web address]://[email or web address]/[facility] eGFR 28(L) >=60 mL/min/1. 73 m?? [facility] Comment: The eGFR was calculated using the CKD-EPI equation. As with all creatinine based estimates of kidney function, eGFR values calculated with the CKD-EPI equation are not accurate in patients with acute kidney failure, extremes of body mass or the acutely ill. [email or web address] Blood specimen (specimen) 04/26/2018 4:39 AM EDT 04/26/2018 4:58 AM EDT Narrative Resulting Agency Comment Spec In Lab Hay Sparks MD CHEMISTRY ORDERABLES [facility] [place] [address] * SCAN DOC: ECG (04/26/2018 12:00 AM EDT) Narrative 04/26/2018 12:00 AM EDT Ordered by an unspecified provider. Scanning Provider MEDIA MGR SCAN EXT O RDR/RSLT * Differential, Automated (04/25/2018 5:18 AM EDT) Neutrophil % 64.9 % [facility] Neutrophil Absolute 3.49 1.70 - 6.10 x10(3)/[facility] Lymph % 20.4 % [facility] Lymphocytes Abs 1.1 0.9 - 3.2 x10(3)/[facility] Monocyte % 8.0 % [facility] Monocyte Abs 0.4 0.3 - 0.9 x10(3)/[facility] Eos % 4.8 % [facility] Eosinophils Abs 0.3 0.0 - 0.4 x10(3)/[facility] Basophil % 1.5 % [facility] Baso Absolute 0.1 0.0 - 0.1 x10(3)/[facility] Immature Gran % 0.40 % [facility] Comment: Immature granulocytes(IG's)percentage and absolute count will include metamyelocytes, myelocytes, and promyelocytes. Blood smears from CBCs yielding IG's will be scanned manually for concordance. If this scan disagrees with the automated IG or if promyelocytes are noted, a manual differential will be performed. Immature Gran Absolute 0.02 0.00 - 0.04 x10(3)/[facility] Blood specimen (specimen) 04/25/2018 5:18 AM EDT 04/25/2018 5:43 AM EDT Narrative Resulting Agency Comment Spec In Lab Apple Gutierrez MD HEMATOLOGY ORDERABLE S [facility] [place] [address] * (ABNORMAL) Hemogram (04/25/2018 5:18 AM EDT) White Blood Cell 5.4 4.0 - 9.5 x10(3)/ L [facility] Red Blood Cell 2.70(L) 4.58 - 5.54 x10(6)/ L [facility] Hemoglobin 8.2(L) 13.7 - 16.5 gm/dL [facility] Hematocrit 26.1(L) 40.5 - 48.5 % [facility] Mean Cell Volume 96.7(H) 82.9 - 93.[address] [facility] Mean Cell Hemoglobin 30.4 27.5 - 32.[address] [facility] Mean Cell Hemoglobin Concentration 31.4(L) 32.0 - 35.7 gm/dL ST [facility] Platelet 327 145 - 357 x10(3)/mc L [facility] RDW Standard Deviation 55.7(H) 36.0 - 45.[address] [facility] RDW coefficient of variation 15.8(H) 11.4 - 13.8 % [facility] Mean Platelet Volume 9.1 7.6 - 12.[address] [facility] NRBC% auto 0.0 % [facility] NRBC Absolute 0.000 0.000 - 0.000 x10(3)/mc L [facility] Blood specimen (specimen) 04/25/2018 5:18 AM EDT 04/25/2018 5:43 AM EDT Narrative Resulting Agency Comment Spec In Lab Apple Gutierrez MD HEMATOLOGY ORDERABLE S [facility] [place] [address] * (ABNORMAL) Basic Metabolic Panel (non-fasting) (04/25/2018 5:18 AM EDT) Glucose 97 65 - 199 mg/dL [facility] Comment:Diabetes: >=200 mg/d L plus symptoms Blood Urea Nitrogen 39(H) 10 - 20 mg/dL [facility] Creatinine 2.58(H) 0.80 - 1.50 mg/dL [facility] Sodium 138 135 - 145 mmol/L [facility] Potassium 5.2(H) 3.5 - 5.0 mmol/L [facility] Comment: Please note: ??Patients with WBC >100,000 may have falsely elevated Potassium levels. ??For accurate Potassium quantification in these patients send serum separator tube (gold top) for subsequent determinations. ??Contact the Clinical Chemistry Laboratory if there are any questions. Chloride 106 98 - 107 mmol/L [facility] Carbon Dioxide 19(L) 22 - 31 mmol/L [facility] Anion Gap 13 5 - 15 mmol/L [facility] Calcium 8.1(L) 8.5 - 10.5 mg/dL [facility] Est Glomerular Filtration Rate 27(L) >=60 mL/min/1. 73 m?? [facility] Comment: The eGFR was calculated using the CKD-EPI equation. As with all creatinine based estimates of kidney function, eGFR values calculated with the CKD-EPI equation are not accurate in patients with acute kidney failure, extremes of body mass or the acutely ill. [email or web address]nkf eGFR 31(L) >=60 mL/min/1. 73 m?? [facility] Comment: The eGFR was calculated using the CKD-EPI equation. As with all creatinine based estimates of kidney function, eGFR values calculated with the CKD-EPI equation are not accurate in patients with acute kidney failure, extremes of body mass or the acutely ill. [email or web address]nkf Blood specimen (specimen) 04/25/2018 5:18 AM EDT 04/25/2018 5:43 AM EDT Narrative Resulting Agency Comment Spec In Lab Hay Sparks MD CHEMISTRY ORDERABLES [facility] [place] [address] * Differential, Automated (04/24/2018 4:17 AM EDT) Neutrophil % 58.3 % [facility] Neutrophil Absolute 2.74 1.70 - 6.10 x10(3)/[facility] Lymph % 24.8 % [facility] Lymphocytes Abs 1.2 0.9 - 3.2 x10(3)/[facility] Monocyte % 9.3 % [facility] Monocyte Abs 0.4 0.3 - 0.9 x10(3)/[facility] Eos % 5.9 % [facility] Eosinophils Abs 0.3 0.0 - 0.4 x10(3)/[facility] Basophil % 1.1 % [facility] Baso Absolute 0.0 0.0 - 0.1 x10(3)/[facility] Immature Gran % 0.60 % [facility] Comment: Immature granulocytes(IG's)percentage and absolute count will include metamyelocytes, myelocytes, and promyelocytes. Blood smears from CBCs yielding IG's will be scanned manually for concordance. If this scan disagrees with the automated IG or if promyelocytes are noted, a manual differential will be performed. Immature Gran Absolute 0.03 0.00 - 0.04 x10(3)/[facility] Blood specimen (specimen) 04/24/2018 4:17 AM EDT 04/24/2018 4:40 AM EDT Narrative Resulting Agency Comment Spec In Lab Apple Gutierrez MD HEMATOLOGY ORDERABLE S [facility] [place] [address] * (ABNORMAL) Hemogram (04/24/2018 4:17 AM EDT) White Blood Cell 4.7 4.0 - 9.5 x10(3)/mc L [facility] Red Blood Cell 2.61(L) 4.58 - 5.54 x10(6)/mc L [facility] Hemoglobin 7.9(L) 13.7 - 16.5 gm/dL [facility] Hematocrit 24.6(L) 40.5 - 48.5 % [facility] Mean Cell Volume 94.3(H) 82.9 - 93.[address] [facility] Mean Cell Hemoglobin 30.3 27.5 - 32.[address] [facility] Mean Cell Hemoglobin Concentration 32.1 32.0 - 35.7 gm/dL [facility] Platelet 283 145 - 357 x10(3)/mc L [facility] RDW Standard Deviation 54.0(H) 36.0 - 45.[address] [facility] RDW coefficient of variation 15.7(H) 11.4 - 13.8 % [facility] Mean Platelet Volume 8.6 7.6 - 12.[address] [facility] NRBC% auto 0.0 % [facility] NRBC Absolute 0.000 0.000 - 0.000 x10(3)/mc L [facility] Blood specimen (specimen) 04/24/2018 4:17 AM EDT 04/24/2018 4:40 AM EDT Narrative Resulting Agency Comment Spec In Lab Apple Gutierrez MD HEMATOLOGY ORDERABLE S Performing Organization Address City/State/[facility] Co de Phone Number [facility] [place] [address] * (ABNORMAL) Basic Metabolic Panel (non-fasting) (04/24/2018 4:17 AM EDT) Glucose 93 65 - 199 mg/dL [facility] Comment:Diabetes: >=200 mg/d L plus symptoms Blood Urea Nitrogen 38(H) 10 - 20 mg/dL [facility] Creatinine 2.74(H) 0.80 - 1.50 mg/dL [facility] Sodium 138 135 - 145 mmol/L [facility] Potassium 5.2(H) 3.5 - 5.0 mmol/L [facility] Comment: Please note: ??Patients with WBC >100,000 may have falsely elevated Potassium levels. ??For accurate Potassium quantification in these patients send serum separator tube (gold top) for subsequent determinations. ??Contact the Clinical Chemistry Laboratory if there are any questions. Chloride 108(H) 98 - 107 mmol/L [facility] Carbon Dioxide 20(L) 22 - 31 mmol/L [facility] Anion Gap 10 5 - 15 mmol/L [facility] Calcium 8.0(L) 8.5 - 10.5 mg/dL [facility] Est Glomerular Filtration Rate 25(L) >=60 mL/min/1. 73 m?? [facility] Comment: The eGFR was calculated using the CKD-EPI equation. As with all creatinine based estimates of kidney function, eGFR values calculated with the CKD-EPI equation are not accurate in patients with acute kidney failure, extremes of body mass or the acutely ill. [email or web address]nkf eGFR 29(L) >=60 mL/min/1. 73 m?? [facility] Comment: The eGFR was calculated using the CKD-EPI equation. As with all creatinine based estimates of kidney function, eGFR values calculated with the CKD-EPI equation are not accurate in patients with acute kidney failure, extremes of body mass or the acutely ill. [email or web address]nkf Blood specimen (specimen) 04/24/2018 4:17 AM EDT 04/24/2018 4:40 AM EDT Narrative Resulting Agency Comment Spec In Lab Hay Sparks MD CHEMISTRY ORDERABLES [facility] [place] [address] * Differential, Automated (04/23/2018 4:56 AM EDT) Neutrophil % 61.5 % [facility] Neutrophil Absolute 3.19 1.70 - 6.10 x10(3)/[facility] Lymph % 22.2 % [facility] Lymphocytes Abs 1.2 0.9 - 3.2 x10(3)/[facility] Monocyte % 9.5 % [facility] Monocyte Abs 0.5 0.3 - 0.9 x10(3)/[facility] Eos % 5.6 % [facility] Eosinophils Abs 0.3 0.0 - 0.4 x10(3)/[facility] Basophil % 0.8 % [facility] Baso Absolute 0.0 0.0 - 0.1 x10(3)/[facility] Immature Gran % 0.40 % [facility] Comment: Immature granulocytes(IG's)percentage and absolute count will include metamyelocytes, myelocytes, and promyelocytes. Blood smears from CBCs yielding IG's will be scanned manually for concordance. If this scan disagrees with the automated IG or if promyelocytes are noted, a manual differential will be performed. Immature Gran Absolute 0.02 0.00 - 0.04 x10(3)/[facility] Blood specimen (specimen) 04/23/2018 4:56 AM EDT 04/23/2018 5:25 AM EDT Narrative Resulting Agency Comment Spec In Lab Apple Gutierrez MD HEMATOLOGY ORDERABLE S Performing Organization Address City/State/[facility] Co de Phone Number [facility] [place] [address] * (ABNORMAL) Hemogram (04/23/2018 4:56 AM EDT) White Blood Cell 5.2 4.0 - 9.5 x10(3)/ L [facility] Red Blood Cell 2.60(L) 4.58 - 5.54 x10(6)/ L [facility] Hemoglobin 8.0(L) 13.7 - 16.5 gm/dL [facility] Hematocrit 24.3(L) 40.5 - 48.5 % [facility] Mean Cell Volume 93.5(H) 82.9 - 93.[address] [facility] Mean Cell Hemoglobin 30.8 27.5 - 32.[address] [facility] Mean Cell Hemoglobin Concentration 32.9 32.0 - 35.7 gm/dL [facility] Platelet 317 145 - 357 x10(3)/ L [facility] RDW Standard Deviation 54.2(H) 36.0 - 45.[address] [facility] RDW coefficient of variation 15.9(H) 11.4 - 13.8 % [facility] Mean Platelet Volume 8.5 7.6 - 12.[address] [facility] NRBC% auto 0.0 % [facility] NRBC Absolute 0.000 0.000 - 0.000 x10(3)/mc L [facility] Blood specimen (specimen) 04/23/2018 4:56 AM EDT 04/23/2018 5:25 AM EDT Narrative Resulting Agency Comment Spec In Lab Apple Gutierrez MD HEMATOLOGY ORDERABLE S [facility] [place] [address] * (ABNORMAL) Basic Metabolic Panel (non-fasting) (04/23/2018 4:56 AM EDT) Glucose 96 65 - 199 mg/dL [facility] Comment:Diabetes: >=200 mg/d L plus symptoms Blood Urea Nitrogen 36(H) 10 - 20 mg/dL [facility] Creatinine 2.49(H) 0.80 - 1.50 mg/dL [facility] Sodium 137 135 - 145 mmol/L [facility] Potassium 4.9 3.5 - 5.0 mmol/L [facility] Comment: Please note: ??Patients with WBC >100,000 may have falsely elevated Potassium levels. ??For accurate Potassium quantification in these patients send serum separator tube (gold top) for subsequent determinations. ??Contact the Clinical Chemistry Laboratory if there are any questions. Chloride 103 98 - 107 mmol/L [facility] Carbon Dioxide 20(L) 22 - 31 mmol/L [facility] Anion Gap 14 5 - 15 mmol/L [facility] Calcium 8.1(L) 8.5 - 10.5 mg/dL [facility] Est Glomerular Filtration Rate 28(L) >=60 mL/min/1. 73 m?? [facility] Comment: The eGFR was calculated using the CKD-EPI equation. As with all creatinine based estimates of kidney function, eGFR values calculated with the CKD-EPI equation are not accurate in patients with acute kidney failure, extremes of body mass or the acutely ill. [email or web address]nkf eGFR 32(L) >=60 mL/min/1. 73 m?? [facility] Comment: The eGFR was calculated using the CKD-EPI equation. As with all creatinine based estimates of kidney function, eGFR values calculated with the CKD-EPI equation are not accurate in patients with acute kidney failure, extremes of body mass or the acutely ill. [email or web address]nkf Blood specimen (specimen) 04/23/2018 4:56 AM EDT 04/23/2018 5:25 AM EDT Narrative Resulting Agency Comment Spec In Lab Hay Sparks MD CHEMISTRY ORDERABLES [facility] [place] [address] * Differential, Automated (04/22/2018 5:34 AM EDT) Neutrophil % 67.1 % [facility] Neutrophil Absolute 3.67 1.70 - 6.10 x10(3)/[facility] Lymph % 17.3 % [facility] Lymphocytes Abs 1.0 0.9 - 3.2 x10(3)/[facility] Monocyte % 10.0 % [facility] Monocyte Abs 0.6 0.3 - 0.9 x10(3)/[facility] Eos % 4.7 % [facility] Eosinophils Abs 0.3 0.0 - 0.4 x10(3)/[facility] Basophil % 0.7 % [facility] Baso Absolute 0.0 0.0 - 0.1 x10(3)/[facility] Immature Gran % 0.20 % [facility] Comment: Immature granulocytes(IG's)percentage and absolute count will include metamyelocytes, myelocytes, and promyelocytes. Blood smears from CBCs yielding IG's will be scanned manually for concordance. If this scan disagrees with the automated IG or if promyelocytes are noted, a manual differential will be performed. Immature Gran Absolute 0.01 0.00 - 0.04 x10(3)/[facility] Blood specimen (specimen) 04/22/2018 5:34 AM EDT 04/22/2018 5:51 AM EDT Narrative Resulting Agency Comment Spec In Lab Apple Gutierrez MD HEMATOLOGY ORDERABLE S [facility] [place] [address] * (ABNORMAL) Hemogram (04/22/2018 5:34 AM EDT) White Blood Cell 5.5 4.0 - 9.5 x10(3)/[facility] Red Blood Cell 2.62(L) 4.58 - 5.54 x10(6)/ L [facility] Hemoglobin 8.0(L) 13.7 - 16.5 gm/dL [facility] Hematocrit 24.8(L) 40.5 - 48.5 % [facility] Mean Cell Volume 94.7(H) 82.9 - 93.1 [facility] Mean Cell Hemoglobin 30.5 27.5 - 32.[address] [facility] Mean Cell Hemoglobin Concentration 32.3 32.0 - 35.7 gm/dL [facility] Platelet 289 145 - 357 x10(3)/ L [facility] RDW Standard Deviation 56.7(H) 36.0 - 45.[address] [facility] RDW coefficient of variation 16.2(H) 11.4 - 13.8 % [facility] Mean Platelet Volume 8.6 7.6 - 12.[address] [facility] NRBC% auto 0.0 % [facility] NRBC Absolute 0.000 0.000 - 0.000 x10(3)/mc L [facility] Blood specimen (specimen) 04/22/2018 5:34 AM EDT 04/22/2018 5:51 AM EDT Narrative Resulting Agency Comment Spec In Lab Apple Gutierrez MD HEMATOLOGY ORDERABLE S [facility] [place] [address] * (ABNORMAL) Basic Metabolic Panel (non-fasting) (04/22/2018 5:34 AM EDT) Glucose 100 65 - 199 mg/dL [facility] Comment:Diabetes: >=200 mg/d L plus symptoms Blood Urea Nitrogen 38(H) 10 - 20 mg/dL [facility] Creatinine 2.30(H) 0.80 - 1.50 mg/dL [facility] Sodium 138 135 - 145 mmol/L [facility] Potassium 5.3(H) 3.5 - 5.0 mmol/L [facility] Comment: Please note: ??Patients with WBC >100,000 may have falsely elevated Potassium levels. ??For accurate Potassium quantification in these patients send serum separator tube (gold top) for subsequent determinations. ??Contact the Clinical Chemistry Laboratory if there are any questions. Chloride 106 98 - 107 mmol/L [facility] Carbon Dioxide 19(L) 22 - 31 mmol/L [facility] Anion Gap 13 5 - 15 mmol/L [facility] Calcium 8.0(L) 8.5 - 10.5 mg/dL [facility] Est Glomerular Filtration Rate 31(L) >=60 mL/min/1. 73 m?? [facility] Comment: The eGFR was calculated using the CKD-EPI equation. As with all creatinine based estimates of kidney function, eGFR values calculated with the CKD-EPI equation are not accurate in patients with acute kidney failure, extremes of body mass or the acutely ill. [email or web address]/[facility]nkf eGFR 35(L) >=60 mL/min/1. 73 m?? [facility] Comment: The eGFR was calculated using the CKD-EPI equation. As with all creatinine based estimates of kidney function, eGFR values calculated with the CKD-EPI equation are not accurate in patients with acute kidney failure, extremes of body mass or the acutely ill. [email or web address]nk[facility] Blood specimen (specimen) 04/22/2018 5:34 AM EDT 04/22/2018 5:51 AM EDT Narrative Resulting Agency Comment Spec In Lab Hay Sparks MD CHEMISTRY ORDERABLES Performing Organization Address City/[facility]/ZIP Co de Phone Number [facility] [place] [address] * Blood culture (04/21/2018 6:05 AM EDT) Blood Culture No growth at [address] [facility] Blood specimen (specimen) STRUCTURE OF RIGHT HAND / Unknown 04/21/2018 6:05 AM EDT 04/21/2018 8:01 AM EDT Narrative Resulting Agency Comment Spec In Lab Chase Olvera MD MICROBIOLOGY - BL OOD ORDERABLES [facility] [place] [address] * Blood culture (04/21/2018 5:50 AM EDT) Blood Culture No growth at [address] [facility] Blood specimen (specimen) ANTECUBITAL REGION STRUCTURE / Unknown 04/21/2018 5:50 AM EDT 04/21/2018 7:59 AM EDT Narrative Resulting Agency Comment Spec In Lab Chase Olvera MD MICROBIOLOGY - BL OOD ORDERABLES Performing Organization Address City/[facility]/ZIP Co de Phone Number [facility] [place] [address] * Differential, Automated (04/21/2018 5:50 AM EDT) Neutrophil % 66.9 % [facility] Neutrophil Absolute 3.88 1.70 - 6.10 x10(3)/[facility] Lymph % 16.8 % [facility] Lymphocytes Abs 1.0 0.9 - 3.2 x10(3)/[facility] Monocyte % 8.8 % [facility] Monocyte Abs 0.5 0.3 - 0.9 x10(3)/[facility] Eos % 5.9 % [facility] Eosinophils Abs 0.3 0.0 - 0.4 x10(3)/[facility] Basophil % 0.9 % [facility] Baso Absolute 0.0 0.0 - 0.1 x10(3)/[facility] Immature Gran % 0.70 % [facility] Comment: Immature granulocytes(IG's)percentage and absolute count will include metamyelocytes, myelocytes, and promyelocytes. Blood smears from CBCs yielding IG's will be scanned manually for concordance. If this scan disagrees with the automated IG or if promyelocytes are noted, a manual differential will be performed. Immature Gran Absolute 0.04 0.00 - 0.04 x10(3)/[facility] Blood specimen (specimen) 04/21/2018 5:50 AM EDT 04/21/2018 6:29 AM EDT Narrative Resulting Agency Comment Spec In Lab Apple Gutierrez MD HEMATOLOGY ORDERABLE S Performing Organization Address City/[facility]/ZIP Co de Phone Number [facility] [place] [address] * (ABNORMAL) Hemogram (04/21/2018 5:50 AM EDT) White Blood Cell 5.8 4.0 - 9.5 x10(3)/mc L [facility] Red Blood Cell 2.55(L) 4.58 - 5.54 x10(6)/mc L [facility] Hemoglobin 7.7(L) 13.7 - 16.5 gm/dL [facility] Hematocrit 24.2(L) 40.5 - 48.5 % [facility] Mean Cell Volume 94.9(H) 82.9 - 93.[address] [facility] Mean Cell Hemoglobin 30.2 27.5 - 32.[address] [facility] Mean Cell Hemoglobin Concentration 31.8(L) 32.0 - 35.7 gm/dL [facility] Platelet 316 145 - 357 x10(3)/[facility] RDW Standard Deviation 56.2(H) 36.0 - 45.0 [facility] RDW coefficient of variation 16.0(H) 11.4 - 13.8 % [facility] Mean Platelet Volume 8.2 7.6 - 12.9 [facility] NRBC% auto 0.0 % [facility] NRBC Absolute 0.000 0.000 - 0.000 x10(3)/[facility] Blood specimen (specimen) 04/21/2018 5:50 AM EDT 04/21/2018 6:29 AM EDT Narrative Resulting Agency Comment Spec In Lab Apple Gutierrez MD HEMATOLOGY ORDERABLE S [facility] [place] [address] * (ABNORMAL) Basic Metabolic Panel (non-fasting) (04/21/2018 5:50 AM EDT) Glucose 97 65 - 199 mg/dL [facility] Comment:Diabetes: >=200 mg/d L plus symptoms Blood Urea Nitrogen 34(H) 10 - 20 mg/dL [facility] Creatinine 2.30(H) 0.80 - 1.50 mg/dL [facility] Sodium 138 135 - 145 mmol/L [facility] Potassium 4.8 3.5 - 5.0 mmol/L [facility] Comment: Please note: ??Patients with WBC >100,000 may have falsely elevated Potassium levels. ??For accurate Potassium quantification in these patients send serum separator tube (gold top) for subsequent determinations. ??Contact the Clinical Chemistry Laboratory if there are any questions. Chloride 105 98 - 107 mmol/L [facility] Carbon Dioxide 21(L) 22 - 31 mmol/L [facility] Anion Gap 12 5 - 15 mmol/L [facility] Calcium 8.1(L) 8.5 - 10.5 mg/dL [facility] Est Glomerular Filtration Rate 31(L) >=60 mL/min/1. 73 m?? [facility] Comment: The eGFR was calculated using the CKD-EPI equation. As with all creatinine based estimates of kidney function, eGFR values calculated with the CKD-EPI equation are not accurate in patients with acute kidney failure, extremes of body mass or the acutely ill. [email or web address]/[facility]nk[facility] eGFR 35(L) >=60 mL/min/1. 73 m?? [facility] Comment: The eGFR was calculated using the CKD-EPI equation. As with all creatinine based estimates of kidney function, eGFR values calculated with the CKD-EPI equation are not accurate in patients with acute kidney failure, extremes of body mass or the acutely ill. [email or web address]nk[facility] Blood specimen (specimen) 04/21/2018 5:50 AM EDT 04/21/2018 6:29 AM EDT Narrative Resulting Agency Comment Spec In Lab Hay Sparks MD CHEMISTRY ORDERABLES [facility] [place] [address] * Differential, Automated (04/20/2018 5:48 AM EDT) Pathologist [facility] Neutrophil % 74.0 % [facility] Neutrophil Absolute 5.39 1.70 - 6.10 x10(3)/[facility] Lymph % 12.8 % [facility] Lymphocytes Abs 0.9 0.9 - 3.2 x10(3)/[facility] Monocyte % 8.2 % [facility] Monocyte Abs 0.6 0.3 - 0.9 x10(3)/[facility] Eos % 4.0 % [facility] [place] Eosinophils Abs 0.3 0.0 - 0.4 x10(3)/[facility] [place] Basophil % 0.5 % [facility] Baso Absolute 0.0 0.0 - 0.1 x10(3)/[facility] [place] Immature Gran % 0.50 % [facility] Comment: Immature granulocytes(IG's)percentage and absolute count will include metamyelocytes, myelocytes, and promyelocytes. Blood smears from CBCs yielding IG's will be scanned manually for concordance. If this scan disagrees with the automated IG or if promyelocytes are noted, a manual differential will be performed. Immature Gran Absolute 0.04 0.00 - 0.04 x10(3)/[facility] [place] Blood specimen (specimen) 04/20/2018 5:48 AM EDT 04/20/2018 6:06 AM EDT Narrative Resulting Agency Comment Spec In Lab Apple Gutierrez MD HEMATOLOGY ORDERABLE S [facility] [place] [address] * (ABNORMAL) Hemogram (04/20/2018 5:48 AM EDT) Pathologist [facility] White Blood Cell 7.3 4.0 - 9.5 x10(3)/[facility] LABORATORY Red Blood Cell 2.53(L) 4.58 - 5.54 x10(6)/mc L [facility] Hemoglobin 7.8(L) 13.7 - 16.5 gm/dL [facility] Hematocrit 23.7(L) 40.5 - 48.5 % [facility] Mean Cell Volume 93.7(H) 82.9 - 93.[address] [facility] Mean Cell Hemoglobin 30.8 27.5 - 32.[address] [facility] Mean Cell Hemoglobin Concentration 32.9 32.0 - 35.7 gm/dL [facility] Platelet 302 145 - 357 x10(3)/mc L [facility] RDW Standard Deviation 54.4(H) 36.0 - 45.0 [facility] LABORATORY RDW coefficient of variation 15.9(H) 11.4 - 13.8 % [facility] Mean Platelet Volume 8.5 7.6 - 12.9 [facility] LABORATORY NRBC% auto 0.0 % [facility] NRBC Absolute 0.000 0.000 - 0.000 x10(3)/mc L [facility] Blood specimen (specimen) 04/20/2018 5:48 AM EDT 04/20/2018 6:06 AM EDT Narrative Resulting Agency Comment Spec In Lab Apple Gutierrez MD HEMATOLOGY ORDERABLE S [facility] [place] [address] * APTT (04/20/2018 5:48 AM EDT) Partial Thromboplastin Time 27 25 - [address] [facility] Comment: The PTT is NOT [...] BLES Performing Organization Address [facility] de Phone Number [facility] [place] [address] * Prothrombin Time (04/20/2018 5:48 AM EDT) Prothrombin Time 11.6 9.4 - 12.[address] [facility] International Normalization Ratio 1.0 [facility] Comment: An INR <2.0 indicates [...] BLES Performing Organization Address [facility] de Phone Number [facility] [place] [address] * (ABNORMAL) Basic Metabolic Panel (non-fasting) (04/20/2018 5:48 AM EDT) Glucose 103 65 - 199 mg/dL [facility] Comment:Diabetes: >=200 mg/d L plus symptoms Blood Urea Nitrogen 33(H) 10 - 20 mg/dL [facility] Creatinine 2.38(H) 0.80 - 1.50 mg/dL [facility] Sodium 138 135 - 145 mmol/L [facility] Potassium 4.7 3.5 - 5.0 mmol/L [facility] Comment: Please note: ??Patients with WBC >100,000 may have falsely elevated Potassium levels. ??For accurate Potassium quantification in these patients send serum separator tube ([facility] top) for subsequent determinations. ??Contact the Clinical Chemistry Laboratory if there are any questions. Chloride 104 98 - 107 mmol/L [facility] Carbon Dioxide 21(L) 22 - 31 mmol/L [facility] Anion Gap 13 5 - 15 mmol/L [facility] Calcium 8.0(L) 8.5 - 10.5 mg/dL [facility] Est Glomerular Filtration Rate 29(L) >=60 mL/min/1. 73 m?? [facility] Comment: The eGFR was calculated using the CKD-EPI equation. As with all creatinine based estimates of kidney function, eGFR values calculated with the CKD-EPI equation are not accurate in patients with acute kidney failure, extremes of body mass or the acutely ill. [email or web address]/[email or web address] ALTUSnkf eGFR 34(L) >=60 mL/min/1. 73 m?? [facility] Comment: The eGFR was calculated using the CKD-EPI equation. As with all creatinine based estimates of kidney function, eGFR values calculated with the CKD-EPI equation are not accurate in patients with acute kidney failure, extremes of body mass or the acutely ill. [email or web address] ALTUSnkf Blood specimen (specimen) 04/20/2018 5:48 AM EDT 04/20/2018 6:06 AM EDT Narrative Resulting Agency Comment Spec In Lab Hay Sparks MD CHEMISTRY ORDERABLES [facility] [place] [address] * Anaerobic Culture (04/19/2018 9:25 AM EDT) Anaerobic Culture No anaerobic organisms isolated [facility] Skin (tissue) specimen (specimen) 04/19/2018 9:25 AM EDT 04/19/2018 9:37 AM EDT Comment:LEFT ARM SNUFFBOX PS EUDOANEURYSM FOR AEROBIC, ANAEROBIC, GRAM STAIN Narrative Resulting Agency Comment Spec In Lab Odalis Elias MD MICROBIOLOGY - GENERAL ORDERABLES Performing Organization Address [facility]/ZIP Co de Phone Number [facility] [place] [address] * (ABNORMAL) Tissue culture (04/19/2018 9:25 AM EDT) Pathologist [facility] Tissue Culture Rare Corynebacterium species : possible contaminant(A) [facility] Gram Stain Many Neutrophils seen Rare Gram Negative Rods seen (A) [facility] Organism Gram Negative Rods(A) [facility] Skin (tissue) specimen (specimen) 04/19/2018 9:25 AM EDT 04/19/2018 9:37 AM EDT Comment:LEFT ARM SNUFFBOX PS EUDOANEURYSM FOR AEROBIC, ANAEROBIC, GRAM STAIN Narrative Resulting Agency Comment Spec In Lab Odalis Elias MD MICROBIOLOGY - GENERAL ORDERABLES Performing Organization Address [facility] Co de Phone Number [facility] [place] [address] * Differential, Automated (04/19/2018 6:25 AM EDT) Pathologist [facility] Neutrophil % 68.5 % [facility] Neutrophil Absolute 3.75 1.70 - 6.10 x10(3)/[facility] LABORATORY Lymph % 17.3 % [facility] Lymphocytes Abs 1.0 0.9 - 3.2 x10(3)/[facility] LABORATORY Monocyte % 9.3 % [facility] Monocyte Abs 0.5 0.3 - 0.9 x10(3)/[facility] LABORATORY Eos % 4.0 % [facility] Eosinophils Abs 0.2 0.0 - 0.4 x10(3)/[facility] LABORATORY Basophil % 0.7 % [facility] Baso Absolute 0.0 0.0 - 0.1 x10(3)/[facility] LABORATORY Immature Gran % 0.20 % [facility] Comment: Immature granulocytes(IG's)percentage and absolute count will include metamyelocytes, myelocytes, and promyelocytes. Blood smears from CBCs yielding IG's will be scanned manually for concordance. If this scan disagrees with the automated IG or if promyelocytes are noted, a manual differential will be performed. Immature Gran Absolute 0.01 0.00 - 0.04 x10(3)/mcL [facility] Blood specimen (specimen) 04/19/2018 6:25 AM EDT 04/19/2018 6:32 AM EDT Narrative Resulting Agency Comment Spec In Lab Apple Gutierrez MD HEMATOLOGY ORDERABLE S [facility] [place] [address] * (ABNORMAL) Hemogram (04/19/2018 6:25 AM EDT) White Blood Cell 5.5 4.0 - 9.5 x10(3)/mc L [facility] Red Blood Cell 2.52(L) 4.58 - 5.54 x10(6)/mc L [facility] Hemoglobin 7.7(L) 13.7 - 16.5 gm/dL [facility] Hematocrit 23.3(L) 40.5 - 48.5 % [facility] Mean Cell Volume 92.5 82.9 - 93.[address] [facility] Mean Cell Hemoglobin 30.6 27.5 - 32.[address] [facility] Mean Cell Hemoglobin Concentration 33.0 32.0 - 35.7 gm/dL [facility] Platelet 274 145 - 357 x10(3)/mc L [facility] RDW Standard Deviation 53.1(H) 36.0 - 45.[address] [facility] RDW coefficient of variation 15.6(H) 11.4 - 13.8 % [facility] Mean Platelet Volume 8.3 7.6 - 12.[address] [facility] NRBC% auto 0.0 % [facility] NRBC Absolute 0.000 0.000 - 0.000 x10(3)/mc L [facility] Blood specimen (specimen) 04/19/2018 6:25 AM EDT 04/19/2018 6:32 AM EDT Narrative Resulting Agency Comment Spec In Lab Apple Gutierrez MD HEMATOLOGY ORDERABLE S Performing Organization Address [facility] Co de Phone Number [facility] [place] [address] * APTT (04/19/2018 6:25 AM EDT) Partial Thromboplastin Time 27 25 - [address] [facility] Comment: The PTT is NOT [...] BLES Performing Organization Address [facility] de Phone Number [facility] [place] [address] * Prothrombin Time (04/19/2018 6:25 AM EDT) Prothrombin Time 11.5 9.4 - 12.[address] [facility] International Normalization Ratio 1.0 [facility] Comment: An INR <2.0 indicates [...] Lab Chase Olvera MD HEMATOLOGY ORDERA BLES [facility] [place] [address] * (ABNORMAL) Basic Metabolic Panel (non-fasting) (04/19/2018 6:25 AM EDT) Glucose 100 65 - 199 mg/dL [facility] Comment:Diabetes: >=200 mg/d L plus symptoms Blood Urea Nitrogen 35(H) 10 - 20 mg/dL [facility] Creatinine 2.12(H) 0.80 - 1.50 mg/dL [facility] Sodium 137 135 - 145 mmol/L [facility] Potassium 4.7 3.5 - 5.0 mmol/L [facility] Comment: Please note: ??Patients with WBC >100,000 may have falsely elevated Potassium levels. ??For accurate Potassium quantification in these patients send serum separator tube (gold top) for subsequent determinations. ??Contact the Clinical Chemistry Laboratory if there are any questions. Chloride 104 98 - 107 mmol/L [facility] Carbon Dioxide 21(L) 22 - 31 mmol/L [facility] Anion Gap 12 5 - 15 mmol/L [facility] Calcium 8.0(L) 8.5 - 10.5 mg/dL [facility] Est Glomerular Filtration Rate 34(L) >=60 mL/min/1. 73 m?? [facility] Comment: The eGFR was calculated using the CKD-EPI equation. As with all creatinine based estimates of kidney function, eGFR values calculated with the CKD-EPI equation are not accurate in patients with acute kidney failure, extremes of body mass or the acutely ill. [email or web address] eGFR 39(L) >=60 mL/min/1. 73 m?? [facility] Comment: The eGFR was calculated using the CKD-EPI equation. As with all creatinine based estimates of kidney function, eGFR values calculated with the CKD-EPI equation are not accurate in patients with acute kidney failure, extremes of body mass or the acutely ill. [email or web address] Blood specimen (specimen) 04/19/2018 6:25 AM EDT 04/19/2018 6:32 AM EDT Narrative Resulting Agency Comment Spec In Lab Hay Sparks MD CHEMISTRY ORDERABLES Performing Organization Address [facility] de Phone Number [facility] [place] [address] * Tacrolimus level (04/19/2018 6:25 AM EDT) Tacrolimus 2.8 ng/mL [facility] Comment: Trough therapeutic: ??5-15 ng/mL Performed by ultra-performance liquid chromatography tandem mass spectrometry (UPLCMS/MS). This test was developed and its performance characteristics determined by [facility]. It has not been cleared or [...] MD CHEMISTRY ORDERAB LES Performing Organization Address [facility] de Phone Number [facility] [place] [address] * AVF/Established Access Evaluation (04/18/2018 1:29 PM EDT) VB Text Report Department: Vascular Surgery Lab Patient: [id number] (CHRISTY AMBROSE) CPT: 38340 ICD10: N18.6;R57.8 Referring Physician: CHASE OLVERA ?? [...] 5:26 AM EDT) Neutrophil % 67.3 % [facility] Neutrophil Absolute 4.29 1.70 - 6.10 x10(3)/[facility] LABORATORY Lymph % 19.6 % [facility] Lymphocytes Abs 1.2 0.9 - 3.2 x10(3)/[facility] LABORATORY Monocyte % 8.2 % [facility] Monocyte Abs 0.5 0.3 - 0.9 x10(3)/[facility] LABORATORY Eos % 3.9 % [facility] Eosinophils Abs 0.2 0.0 - 0.4 x10(3)/[facility] LABORATORY Basophil % 0.5 % [facility] Baso Absolute 0.0 0.0 - 0.1 x10(3)/[facility] LABORATORY Immature Gran % 0.50 % [facility] Comment: Immature granulocytes(IG's)percentage and absolute count will include metamyelocytes, myelocytes, and promyelocytes. Blood smears from CBCs yielding IG's will be scanned manually for concordance. If this scan disagrees with the automated IG or if promyelocytes are noted, a manual differential will be performed. Immature Gran Absolute 0.03 0.00 - 0.04 x10(3)/[facility] LABORATORY Blood specimen (specimen) 04/18/2018 5:26 AM EDT 04/18/2018 5:39 AM EDT Narrative Resulting Agency Comment Spec In Lab Apple Gutierrez MD HEMATOLOGY ORDERABLE S [facility] [place] [address] * (ABNORMAL) Hemogram (04/18/2018 5:26 AM EDT) White Blood Cell 6.4 4.0 - 9.5 x10(3)/mc L [facility] Red Blood Cell 2.65(L) 4.58 - 5.54 x10(6)/mc L [facility] Hemoglobin 8.0(L) 13.7 - 16.5 gm/dL [facility] Hematocrit 24.6(L) 40.5 - 48.5 % [facility] Mean Cell Volume 92.8 82.9 - 93.[address] [facility] Mean Cell Hemoglobin 30.2 27.5 - 32.[address] [facility] Mean Cell Hemoglobin Concentration 32.5 32.0 - 35.7 gm/dL [facility] Platelet 305 145 - 357 x10(3)/mc L [facility] RDW Standard Deviation 53.2(H) 36.0 - 45.[address] [facility] RDW coefficient of variation 15.7(H) 11.4 - 13.8 % [facility] Mean Platelet Volume 8.3 7.6 - 12.[address] [facility] NRBC% auto 0.0 % [facility] NRBC Absolute 0.000 0.000 - 0.000 x10(3)/mc L [facility] Blood specimen (specimen) 04/18/2018 5:26 AM EDT 04/18/2018 5:39 AM EDT Narrative Resulting Agency Comment Spec In Lab Apple Gutierrez MD HEMATOLOGY ORDERABLE S Performing Organization Address [facility] Co de Phone Number [facility] [place] [address] * APTT (04/18/2018 5:26 AM EDT) Partial Thromboplastin Time 27 25 - [address] [facility] Comment: The PTT is NOT appropriate for heparin monitoring. Use the Anti-Xa level for heparin monitoring (HEP UFH) or LMWH monitoring (HEP LMW). A PTT less than 37 seconds generally indicates adequate hemostasis. Blood specimen (specimen) 04/18/2018 5:26 AM EDT 04/18/2018 5:39 AM EDT Narrative Resulting Agency Comment Spec In Lab Chase Olvera MD HEMATOLOGY ORDERA BLES Performing Organization Address City/[facility]/ZIP Co de Phone Number [facility] [place] [address] * Prothrombin Time (04/18/2018 5:26 AM EDT) Prothrombin Time 11.2 9.4 - 12.[address] [facility] International Normalization Ratio 1.0 [facility] Comment: An INR <2.0 indicates [...] Lab Chase Olvera MD HEMATOLOGY ORDERA BLES [facility] [place] [address] * (ABNORMAL) Basic Metabolic Panel (non-fasting) (04/18/2018 5:26 AM EDT) Glucose 103 65 - 199 mg/dL [facility] Comment:Diabetes: >=200 mg/d L plus symptoms Blood Urea Nitrogen 36(H) 10 - 20 mg/dL [facility] Creatinine 2.30(H) 0.80 - 1.50 mg/dL [facility] Sodium 135 135 - 145 mmol/L [facility] Potassium 4.3 3.5 - 5.0 mmol/L [facility] Comment: Please note: ??Patients with WBC >100,000 may have falsely elevated Potassium levels. ??For accurate Potassium quantification in these patients send serum separator tube (gold top) for subsequent determinations. ??Contact the Clinical Chemistry Laboratory if there are any questions. Chloride 104 98 - 107 mmol/L [facility] Carbon Dioxide 20(L) 22 - 31 mmol/L [facility] Anion Gap 11 5 - 15 mmol/L [facility] Calcium 8.3(L) 8.5 - 10.5 mg/dL [facility] Est Glomerular Filtration Rate 31(L) >=60 mL/min/1. 73 m?? [facility] Comment: The eGFR was calculated using the CKD-EPI equation. As with all creatinine based estimates of kidney function, eGFR values calculated with the CKD-EPI equation are not accurate in patients with acute kidney failure, extremes of body mass or the acutely ill. [email or web address] eGFR 35(L) >=60 mL/min/1. 73 m?? [facility] Comment: The eGFR was calculated using the CKD-EPI equation. As with all creatinine based estimates of kidney function, eGFR values calculated with the CKD-EPI equation are not accurate in patients with acute kidney failure, extremes of body mass or the acutely ill. [email or web address] Blood specimen (specimen) 04/18/2018 5:26 AM EDT 04/18/2018 5:39 AM EDT Narrative Resulting Agency Comment Spec In Lab Hay Sparks MD CHEMISTRY ORDERABLES Performing Organization Address [facility] Co de Phone Number [facility] [place] [address] * ABORH Recheck Status (04/17/2018 9:07 AM EDT) ABORH Type Recheck Completed [facility] Blood specimen (specimen) 04/17/2018 9:07 AM EDT 04/17/2018 9:22 AM EDT Narrative Resulting Agency Comment Spec In Lab Tim Ogden MD BLOOD BANK LAB ORDE ABDIAS Performing Organization Address [facility] Co de Phone Number [facility] [place] [address] * Antibody screen (04/17/2018 9:07 AM EDT) Ab Screen Interp Negative [facility] Expires at [id number] on: 04/20/2018 [facility] Blood specimen (specimen) 04/17/2018 9:07 AM EDT 04/17/2018 9:22 AM EDT Narrative Resulting Agency Comment Spec In Lab Tim Ogden MD BLOOD BANK LAB ORDE RABKAYDEN Performing Organization Address City/[facility]/ZIP Co de Phone Number [facility] [place] [address] * ABO/Rh Typing (04/17/2018 9:07 AM EDT) ABORH Type A Pos [facility] Blood specimen (specimen) 04/17/2018 9:07 AM EDT 04/17/2018 9:22 AM EDT Narrative Resulting Agency Comment Spec In Lab Tim Ogden MD BLOOD BANK LAB RYAN CALERO [facility] [place] [address] * Differential, Automated (04/17/2018 4:43 AM EDT) Neutrophil % 64.8 % [facility] Neutrophil Absolute 3.62 1.70 - 6.10 x10(3)/[facility] LABORATORY Lymph % 18.6 % [facility] Lymphocytes Abs 1.0 0.9 - 3.2 x10(3)/[facility] LABORATORY Monocyte % 10.0 % [facility] Monocyte Abs 0.6 0.3 - 0.9 x10(3)/[facility] LABORATORY Eos % 5.0 % [facility] Eosinophils Abs 0.3 0.0 - 0.4 x10(3)/[facility] LABORATORY Basophil % 0.9 % [facility] Baso Absolute 0.0 0.0 - 0.1 x10(3)/[facility] LABORATORY Immature Gran % 0.70 % [facility] Comment: Immature granulocytes(IG's)percentage and absolute count will include metamyelocytes, myelocytes, and promyelocytes. Blood smears from CBCs yielding IG's will be scanned manually for concordance. If this scan disagrees with the automated IG or if promyelocytes are noted, a manual differential will be performed. Immature Gran Absolute 0.04 0.00 - 0.04 x10(3)/[facility] LABORATORY Blood specimen (specimen) 04/17/2018 4:43 AM EDT 04/17/2018 5:09 AM EDT Narrative Resulting Agency Comment Spec In Lab Apple Gutierrez MD HEMATOLOGY ORDERABLE S [facility] [place] [address] * (ABNORMAL) Hemogram (04/17/2018 4:43 AM EDT) White Blood Cell 5.6 4.0 - 9.5 x10(3)/mc L [facility] Red Blood Cell 2.47(L) 4.58 - 5.54 x10(6)/mc L [facility] Hemoglobin 7.5(L) 13.7 - 16.5 gm/dL [facility] Hematocrit 22.9(L) 40.5 - 48.5 % [facility] Mean Cell Volume 92.7 82.9 - 93.[address] [facility] Mean Cell Hemoglobin 30.4 27.5 - 32.[address] [facility] Mean Cell Hemoglobin Concentration 32.8 32.0 - 35.7 gm/dL [facility] Platelet 282 145 - 357 x10(3)/mc L [facility] RDW Standard Deviation 53.0(H) 36.0 - 45.0 [facility] LABORATORY RDW coefficient of variation 15.6(H) 11.4 - 13.8 % [facility] Mean Platelet Volume 8.3 7.6 - 12.[address] [facility] NRBC% auto 0.0 % [facility] NRBC Absolute 0.000 0.000 - 0.000 x10(3)/mc L [facility] Blood specimen (specimen) 04/17/2018 4:43 AM EDT 04/17/2018 5:09 AM EDT Narrative Resulting Agency Comment Spec In Lab Apple Gutierrez MD HEMATOLOGY ORDERABLE S Performing Organization Address [facility]/ZIP Co de Phone Number [facility] [place] [address] * APTT (04/17/2018 4:43 AM EDT) Partial Thromboplastin Time 27 25 - [address] [facility] Comment: The PTT is NOT [...] BLES Performing Organization Address [facility] Co de Phone Number [facility] [place] [address] * Prothrombin Time (04/17/2018 4:43 AM EDT) Prothrombin Time 11.7 9.4 - 12.[address] [facility] International Normalization Ratio 1.0 [facility] Comment: An INR <2.0 indicates [...] BLES Performing Organization Address [facility]/ZIP Co de Phone Number [facility] [place] [address] * (ABNORMAL) Basic Metabolic Panel (non-fasting) (04/17/2018 4:43 AM EDT) Glucose 100 65 - 199 mg/dL [facility] Comment:Diabetes: >=200 mg/d L plus symptoms Blood Urea Nitrogen 32(H) 10 - 20 mg/dL [facility] Creatinine 2.27(H) 0.80 - 1.50 mg/dL [facility] Sodium 135 135 - 145 mmol/L [facility] Potassium 4.1 3.5 - 5.0 mmol/L [facility] Comment: Please note: ??Patients with WBC >100,000 may have falsely elevated Potassium levels. ??For accurate Potassium quantification in these patients send serum separator tube (gold top) for subsequent determinations. ??Contact the Clinical Chemistry Laboratory if there are any questions. Chloride 104 98 - 107 mmol/L [facility] Carbon Dioxide 19(L) 22 - 31 mmol/L [facility] Anion Gap 12 5 - 15 mmol/L [facility] Calcium 7.7(L) 8.5 - 10.5 mg/dL [facility] Est Glomerular Filtration Rate 31(L) >=60 mL/min/1. 73 m?? [facility] Comment: The eGFR was calculated using the CKD-EPI equation. As with all creatinine based estimates of kidney function, eGFR values calculated with the CKD-EPI equation are not accurate in patients with acute kidney failure, extremes of body mass or the acutely ill. [email or web address]USnkf eGFR 36(L) >=60 mL/min/1. 73 m?? [facility] Comment: The eGFR was calculated using the CKD-EPI equation. As with all creatinine based estimates of kidney function, eGFR values calculated with the CKD-EPI equation are not accurate in patients with acute kidney failure, extremes of body mass or the acutely ill. [email or web address]USnkf Blood specimen (specimen) 04/17/2018 4:43 AM EDT 04/17/2018 5:09 AM EDT Narrative Resulting Agency Comment Spec In Lab Hay Sparks MD CHEMISTRY ORDERABLES [facility] [place] [address] * (ABNORMAL) Differential, Automated (04/16/2018 4:17 AM EDT) Neutrophil % 59.4 % [facility] Neutrophil Absolute 3.07 1.70 - 6.10 x10(3)/ L [facility] Lymph % 24.4 % [facility] Lymphocytes Abs 1.3 0.9 - 3.2 x10(3)/ L [facility] Monocyte % 10.3 % [facility] Monocyte Abs 0.5 0.3 - 0.9 x10(3)/[facility] Eos % 4.5 % [facility] Eosinophils Abs 0.2 0.0 - 0.4 x10(3)/[facility] Basophil % 0.4 % [facility] Baso Absolute 0.0 0.0 - 0.1 x10(3)/ L [facility] Immature Gran % 1.00 % [facility] Comment: Immature granulocytes(IG's)percentage and absolute count will include metamyelocytes, myelocytes, and promyelocytes. Blood smears from CBCs yielding IG's will be scanned manually for concordance. If this scan disagrees with the automated IG or if promyelocytes are noted, a manual differential will be performed. Immature Gran Absolute 0.05(H) 0.00 - 0.04 x10(3)/ L [facility] Blood specimen (specimen) 04/16/2018 4:17 AM EDT 04/16/2018 4:52 AM EDT Narrative Resulting Agency Comment Spec In Lab Apple Gutierrez MD HEMATOLOGY ORDERABLE S Performing Organization Address City/[facility]/ZIP Co de Phone Number [facility] [place] [address] * (ABNORMAL) Hemogram (04/16/2018 4:17 AM EDT) White Blood Cell 5.2 4.0 - 9.5 x10(3)/[facility] Red Blood Cell 2.62(L) 4.58 - 5.54 x10(6)/ L [facility] Hemoglobin 7.9(L) 13.7 - 16.5 gm/dL [facility] Hematocrit 24.9(L) 40.5 - 48.5 % [facility] Mean Cell Volume 95.0(H) 82.9 - 93.1 [facility] Mean Cell Hemoglobin 30.2 27.5 - 32.[address] [facility] Mean Cell Hemoglobin Concentration 31.7(L) 32.0 - 35.7 gm/dL [facility] Platelet 288 145 - 357 x10(3)/[facility] RDW Standard Deviation 52.6(H) 36.0 - 45.0 [facility] RDW coefficient of variation 15.4(H) 11.4 - 13.8 % [facility] Mean Platelet Volume 8.5 7.6 - 12.9 [facility] NRBC% auto 0.0 % [facility] NRBC Absolute 0.000 0.000 - 0.000 x10(3)/[facility] Blood specimen (specimen) 04/16/2018 4:17 AM EDT 04/16/2018 4:52 AM EDT Narrative Resulting Agency Comment Spec In Lab Apple Gutierrez MD HEMATOLOGY ORDERABLE S [facility] [place] [address] * APTT (04/16/2018 4:17 AM EDT) Partial Thromboplastin Time 27 25 - [address] [facility] Comment: The PTT is NOT [...] BLES Performing Organization Address [facility] de Phone Number [facility] [place] [address] * Prothrombin Time (04/16/2018 4:17 AM EDT) Prothrombin Time 11.5 9.4 - 12.[address] [facility] International Normalization Ratio 1.0 [facility] Comment: An INR <2.0 indicates [...] BLES Performing Organization Address [facility] de Phone Number [facility] [place] [address] * (ABNORMAL) Basic Metabolic Panel (non-fasting) (04/16/2018 4:17 AM EDT) Glucose 108 65 - 199 mg/dL [facility] Comment:Diabetes: >=200 mg/d L plus symptoms Blood Urea Nitrogen 31(H) 10 - 20 mg/dL [facility] Creatinine 2.27(H) 0.80 - 1.50 mg/dL [facility] Sodium 135 135 - 145 mmol/L [facility] Potassium 4.0 3.5 - 5.0 mmol/L [facility] Comment: Please note: ??Patients with WBC >100,000 may have falsely elevated Potassium levels. ??For accurate Potassium quantification in these patients send serum separator tube (gold top) for subsequent determinations. ??Contact the Clinical Chemistry Laboratory if there are any questions. Chloride 103 98 - 107 mmol/L [facility] Carbon Dioxide 20(L) 22 - 31 mmol/L [facility] Anion Gap 12 5 - 15 mmol/L [facility] Calcium 7.7(L) 8.5 - 10.5 mg/dL [facility] Est Glomerular Filtration Rate 31(L) >=60 mL/min/1. 73 m?? [facility] Comment: The eGFR was calculated using the CKD-EPI equation. As with all creatinine based estimates of kidney function, eGFR values calculated with the CKD-EPI equation are not accurate in patients with acute kidney failure, extremes of body mass or the acutely ill. [email or web address]nkf eGFR 36(L) >=60 mL/min/1. 73 m?? [facility] Comment: The eGFR was calculated using the CKD-EPI equation. As with all creatinine based estimates of kidney function, eGFR values calculated with the CKD-EPI equation are not accurate in patients with acute kidney failure, extremes of body mass or the acutely ill. [email or web address] Blood specimen (specimen) 04/16/2018 4:17 AM EDT 04/16/2018 4:52 AM EDT Narrative Resulting Agency Comment Spec In Lab Hay Sparks MD CHEMISTRY ORDERABLES [facility] [place] [address] * APTT (04/15/2018 4:57 AM EDT) Partial Thromboplastin Time 27 25 - [address] [facility] Comment: The PTT is NOT [...] BLES Performing Organization Address [facility] de Phone Number [facility] [place] [address] * (ABNORMAL) Prothrombin Time (04/15/2018 4:57 AM EDT) Prothrombin Time 12.9(H) 9.4 - 12.[address] [facility] International Normalization Ratio 1.2 [facility] Comment: An INR <2.0 indicates [...] BLES Performing Organization Address [facility] de Phone Number [facility] [place] [address] * Differential, Automated (04/15/2018 4:47 AM EDT) Neutrophil % 59.8 % [facility] Neutrophil Absolute 2.98 1.70 - 6.10 x10(3)/[facility] LAB[facility] Lymph % 22.4 % [facility] Lymphocytes Abs 1.1 0.9 - 3.2 x10(3)/[facility] Monocyte % 11.2 % [facility] Monocyte Abs 0.6 0.3 - 0.9 x10(3)/[facility] Eos % 5.6 % [facility] Eosinophils Abs 0.3 0.0 - 0.4 x10(3)/[facility] Basophil % 0.4 % [facility] Baso Absolute 0.0 0.0 - 0.1 x10(3)/[facility] Immature Gran % 0.60 % [facility] Comment: Immature granulocytes(IG's)percentage and absolute count will include metamyelocytes, myelocytes, and promyelocytes. Blood smears from CBCs yielding IG's will be scanned manually for concordance. If this scan disagrees with the automated IG or if promyelocytes are noted, a manual differential will be performed. Immature Gran Absolute 0.03 0.00 - 0.04 x10(3)/[facility] Blood specimen (specimen) 04/15/2018 4:47 AM EDT 04/15/2018 4:56 AM EDT Narrative Resulting Agency Comment Spec In Lab Apple Gutierrez MD HEMATOLOGY ORDERABLE S [facility] [place] [address] * (ABNORMAL) Hemogram (04/15/2018 4:47 AM EDT) White Blood Cell 5.0 4.0 - 9.5 x10(3)/mc L [facility] Red Blood Cell 2.48(L) 4.58 - 5.54 x10(6)/mc L [facility] Hemoglobin 7.5(L) 13.7 - 16.5 gm/dL [facility] Hematocrit 23.3(L) 40.5 - 48.5 % [facility] Mean Cell Volume 94.0(H) 82.9 - 93.[address] [facility] Mean Cell Hemoglobin 30.2 27.5 - 32.[address] [facility] Mean Cell Hemoglobin Concentration 32.2 32.0 - 35.7 gm/dL [facility] Platelet 224 145 - 357 x10(3)/mc L [facility] RDW Standard Deviation 52.9(H) 36.0 - 45.[address] [facility] RDW coefficient of variation 15.4(H) 11.4 - 13.8 % [facility] Mean Platelet Volume 8.3 7.6 - 12.[address] [facility] NRBC% auto 0.0 % [facility] NRBC Absolute 0.000 0.000 - 0.000 x10(3)/mc L [facility] Blood specimen (specimen) 04/15/2018 4:47 AM EDT 04/15/2018 4:56 AM EDT Narrative Resulting Agency Comment Spec In Lab Apple Gutierrez MD HEMATOLOGY ORDERABLE S Performing Organization Address City/State/[facility] Co de Phone Number [facility] [place] [address] * (ABNORMAL) Basic Metabolic Panel (non-fasting) (04/15/2018 4:47 AM EDT) Glucose 105 65 - 199 mg/dL [facility] Comment:Diabetes: >=200 mg/d L plus symptoms Blood Urea Nitrogen 30(H) 10 - 20 mg/dL [facility] Creatinine 2.17(H) 0.80 - 1.50 mg/dL [facility] Sodium 138 135 - 145 mmol/L [facility] Potassium 4.6 3.5 - 5.0 mmol/L [facility] Comment: Please note: ??Patients with WBC >100,000 may have falsely elevated Potassium levels. ??For accurate Potassium quantification in these patients send serum separator tube (gold top) for subsequent determinations. ??Contact the Clinical Chemistry Laboratory if there are any questions. Chloride 105 98 - 107 mmol/L [facility] Carbon Dioxide 20(L) 22 - 31 mmol/L [facility] Anion Gap 13 5 - 15 mmol/L [facility] Calcium 7.6(L) 8.5 - 10.5 mg/dL [facility] Est Glomerular Filtration Rate 33(L) >=60 mL/min/1. 73 m?? [facility] Comment: The eGFR was calculated using the CKD-EPI equation. As with all creatinine based estimates of kidney function, eGFR values calculated with the CKD-EPI equation are not accurate in patients with acute kidney failure, extremes of body mass or the acutely ill. [email or web address] eGFR 38(L) >=60 mL/min/1. 73 m?? [facility] Comment: The eGFR was calculated using the CKD-EPI equation. As with all creatinine based estimates of kidney function, eGFR values calculated with the CKD-EPI equation are not accurate in patients with acute kidney failure, extremes of body mass or the acutely ill. [email or web address] Blood specimen (specimen) 04/15/2018 4:47 AM EDT 04/15/2018 4:56 AM EDT Narrative Resulting Agency Comment Spec In Lab Hay Sparks MD CHEMISTRY ORDERABLES Performing Organization Address City/State/[facility] Co de Phone Number [facility] [place] [address] * (ABNORMAL) Differential, Automated (04/14/2018 5:48 AM EDT) Neutrophil % 68.9 % [facility] Neutrophil Absolute 3.74 1.70 - 6.10 x10(3)/mc L [facility] Lymph % 15.7 % [facility] Lymphocytes Abs 0.8(L) 0.9 - 3.2 x10(3)/mc L [facility] Monocyte % 11.1 % [facility] Monocyte Abs 0.6 0.3 - 0.9 x10(3)/mc L [facility] Eos % 3.7 % [facility] Eosinophils Abs 0.2 0.0 - 0.4 x10(3)/mc L [facility] Basophil % 0.2 % [facility] Baso Absolute 0.0 0.0 - 0.1 x10(3)/[facility] Immature Gran % 0.40 % [facility] Comment: Immature granulocytes(IG's)percentage and absolute count will include metamyelocytes, myelocytes, and promyelocytes. Blood smears from CBCs yielding IG's will be scanned manually for concordance. If this scan disagrees with the automated IG or if promyelocytes are noted, a manual differential will be performed. Immature Gran Absolute 0.02 0.00 - 0.04 x10(3)/[facility] Blood specimen (specimen) 04/14/2018 5:48 AM EDT 04/14/2018 5:59 AM EDT Narrative Resulting Agency Comment Spec In Lab Apple Gutierrez MD HEMATOLOGY ORDERABLE S Performing Organization Address City/State/[facility] Co de Phone Number [facility] [place] [address] * (ABNORMAL) Hemogram (04/14/2018 5:48 AM EDT) White Blood Cell 5.4 4.0 - 9.5 x10(3)/[facility] Red Blood Cell 2.48(L) 4.58 - 5.54 x10(6)/ L [facility] Hemoglobin 7.5(L) 13.7 - 16.5 gm/dL [facility] Hematocrit 22.9(L) 40.5 - 48.5 % [facility] Mean Cell Volume 92.3 82.9 - 93.[address] [facility] Mean Cell Hemoglobin 30.2 27.5 - 32.[address] [facility] Mean Cell Hemoglobin Concentration 32.8 32.0 - 35.7 gm/dL [facility] Platelet 208 145 - 357 x10(3)/ L [facility] RDW Standard Deviation 51.8(H) 36.0 - 45.[address] [facility] RDW coefficient of variation 15.4(H) 11.4 - 13.8 % [facility] Mean Platelet Volume 8.4 7.6 - 12.[address] [facility] NRBC% auto 0.0 % [facility] NRBC Absolute 0.000 0.000 - 0.000 x10(3)/mc L [facility] Blood specimen (specimen) 04/14/2018 5:48 AM EDT 04/14/2018 5:59 AM EDT Narrative Resulting Agency Comment Spec In Lab Apple Gutierrez MD HEMATOLOGY ORDERABLE S Performing Organization Address City/[facility]/ZIP Co de Phone Number [facility] [place] [address] * APTT (04/14/2018 5:48 AM EDT) Partial Thromboplastin Time 28 25 - [address] [facility] Comment: The PTT is NOT appropriate for heparin monitoring. Use the Anti-Xa level for heparin monitoring (HEP UFH) or LMWH monitoring (HEP LMW). A PTT less than 37 seconds generally indicates adequate hemostasis. Blood specimen (specimen) 04/14/2018 5:48 AM EDT 04/14/2018 5:59 AM EDT Narrative Resulting Agency Comment Spec In Lab Chase Olvera MD HEMATOLOGY ORDERA BLES [facility] [place] [address] * (ABNORMAL) Prothrombin Time (04/14/2018 5:48 AM EDT) Prothrombin Time 15.1(H) 9.4 - 12.[address] [facility] International Normalization Ratio 1.4 [facility] Comment: An INR <2.0 indicates [...] Lab Chase Olvera MD HEMATOLOGY ORDERA BLES [facility] [place] [address] * (ABNORMAL) Basic Metabolic Panel (non-fasting) (04/14/2018 5:48 AM EDT) Glucose 110 65 - 199 mg/dL [facility] Comment:Diabetes: >=200 mg/d L plus symptoms Blood Urea Nitrogen 32(H) 10 - 20 mg/dL [facility] Creatinine 2.38(H) 0.80 - 1.50 mg/dL [facility] Sodium 138 135 - 145 mmol/L [facility] Potassium 4.1 3.5 - 5.0 mmol/L [facility] Comment: Please note: ??Patients with WBC >100,000 may have falsely elevated Potassium levels. ??For accurate Potassium quantification in these patients send serum separator tube (gold top) for subsequent determinations. ??Contact the Clinical Chemistry Laboratory if there are any questions. Chloride 106 98 - 107 mmol/L [facility] Carbon Dioxide 20(L) 22 - 31 mmol/L [facility] Anion Gap 12 5 - 15 mmol/L [facility] Calcium 7.6(L) 8.5 - 10.5 mg/dL [facility] Est Glomerular Filtration Rate 29(L) >=60 mL/min/1. 73 m?? [facility] Comment: The eGFR was calculated using the CKD-EPI equation. As with all creatinine based estimates of kidney function, eGFR values calculated with the CKD-EPI equation are not accurate in patients with acute kidney failure, extremes of body mass or the acutely ill. [email or web address] eGFR 34(L) >=60 mL/min/1. 73 m?? [facility] Comment: The eGFR was calculated using the CKD-EPI equation. As with all creatinine based estimates of kidney function, eGFR values calculated with the CKD-EPI equation are not accurate in patients with acute kidney failure, extremes of body mass or the acutely ill. [email or web address] Blood specimen (specimen) 04/14/2018 5:48 AM EDT 04/14/2018 5:59 AM EDT Narrative Resulting Agency Comment Spec In Lab Hay Sparks MD CHEMISTRY ORDERABLES [facility] [place] [address] * Differential, Automated (04/13/2018 8:14 AM EDT) Neutrophil % 66.0 % [facility] Neutrophil Absolute 3.49 1.70 - 6.10 x10(3)/[facility] LAB[facility] Lymph % 16.3 % [facility] Lymphocytes Abs 0.9 0.9 - 3.2 x10(3)/[facility] Monocyte % 10.4 % [facility] Monocyte Abs 0.6 0.3 - 0.9 x10(3)/[facility] Eos % 6.3 % [facility] Eosinophils Abs 0.3 0.0 - 0.4 x10(3)/[facility] Basophil % 0.4 % [facility] Baso Absolute 0.0 0.0 - 0.1 x10(3)/[facility] Immature Gran % 0.60 % [facility] Comment: Immature granulocytes(IG's)percentage and absolute count will include metamyelocytes, myelocytes, and promyelocytes. Blood smears from CBCs yielding IG's will be scanned manually for concordance. If this scan disagrees with the automated IG or if promyelocytes are noted, a manual differential will be performed. Immature Gran Absolute 0.03 0.00 - 0.04 x10(3)/mcL [facility] Blood specimen (specimen) 04/13/2018 8:14 AM EDT 04/13/2018 8:21 AM EDT Narrative Resulting Agency Comment Spec In Lab Apple Gutierrez MD HEMATOLOGY ORDERABLE S [facility] [place] [address] * (ABNORMAL) Hemogram (04/13/2018 8:14 AM EDT) White Blood Cell 5.3 4.0 - 9.5 x10(3)/[facility] Red Blood Cell 2.53(L) 4.58 - 5.54 x10(6)/[facility] Hemoglobin 7.8(L) 13.7 - 16.5 gm/dL [facility] Hematocrit 23.3(L) 40.5 - 48.5 % [facility] Mean Cell Volume 92.1 82.9 - 93.1 [facility] Mean Cell Hemoglobin 30.8 27.5 - 32.[address] [facility] Mean Cell Hemoglobin Concentration 33.5 32.0 - 35.7 gm/dL [facility] Platelet 190 145 - 357 x10(3)/ L [facility] RDW Standard Deviation 53.5(H) 36.0 - 45.0 [facility] RDW coefficient of variation 15.9(H) 11.4 - 13.8 % [facility] Mean Platelet Volume 8.2 7.6 - 12.9 [facility] NRBC% auto 0.0 % [facility] NRBC Absolute 0.000 0.000 - 0.000 x10(3)/[facility] Blood specimen (specimen) 04/13/2018 8:14 AM EDT 04/13/2018 8:21 AM EDT Narrative Resulting Agency Comment Spec In Lab Apple Gutierrez MD HEMATOLOGY ORDERABLE S Performing Organization Address [facility] Co de Phone Number [facility] [place] [address] * APTT (04/13/2018 8:14 AM EDT) Partial Thromboplastin Time 29 25 - [address] [facility] Comment: The PTT is NOT appropriate for heparin monitoring. Use the Anti-Xa level for heparin monitoring (HEP UFH) or LMWH monitoring (HEP LMW). A PTT less than 37 seconds generally indicates adequate hemostasis. Blood specimen (specimen) 04/13/2018 8:14 AM EDT 04/13/2018 8:21 AM EDT Narrative Resulting Agency Comment Spec In Lab Chase Olvera MD HEMATOLOGY ORDERA BLES Performing Organization Address [facility] de Phone Number [facility] [place] [address] * (ABNORMAL) Prothrombin Time (04/13/2018 8:14 AM EDT) Prothrombin Time 17.3(H) 9.4 - 12.[address] [facility] International Normalization Ratio 1.6 [facility] Comment: An INR <2.0 indicates [...] Lab Chase Olvera MD HEMATOLOGY ORDERA BLES [facility] [place] [address] * (ABNORMAL) Basic Metabolic Panel (non-fasting) (04/13/2018 8:14 AM EDT) Glucose 108 65 - 199 mg/dL [facility] Comment:Diabetes: >=200 mg/d L plus symptoms Blood Urea Nitrogen 30(H) 10 - 20 mg/dL [facility] Creatinine 2.28(H) 0.80 - 1.50 mg/dL [facility] Sodium 138 135 - 145 mmol/L [facility] Potassium 4.5 3.5 - 5.0 mmol/L [facility] Comment: Please note: ??Patients with WBC >100,000 may have falsely elevated Potassium levels. ??For accurate Potassium quantification in these patients send serum separator tube (gold top) for subsequent determinations. ??Contact the Clinical Chemistry Laboratory if there are any questions. Chloride 104 98 - 107 mmol/L [facility] Carbon Dioxide 20(L) 22 - 31 mmol/L [facility] Anion Gap 14 5 - 15 mmol/L [facility] Calcium 7.7(L) 8.5 - 10.5 mg/dL [facility] Est Glomerular Filtration Rate 31(L) >=60 mL/min/1. 73 m?? [facility] Comment: The eGFR was calculated using the CKD-EPI equation. As with all creatinine based estimates of kidney function, eGFR values calculated with the CKD-EPI equation are not accurate in patients with acute kidney failure, extremes of body mass or the acutely ill. [email or web address]nkf eGFR 36(L) >=60 mL/min/1. 73 m?? [facility] Comment: The eGFR was calculated using the CKD-EPI equation. As with all creatinine based estimates of kidney function, eGFR values calculated with the CKD-EPI equation are not accurate in patients with acute kidney failure, extremes of body mass or the acutely ill. [email or web address] Blood specimen (specimen) 04/13/2018 8:14 AM EDT 04/13/2018 8:21 AM EDT Narrative Resulting Agency Comment Spec In Lab Hay Sparks MD CHEMISTRY ORDERABLES Performing Organization Address [facility] Co de Phone Number [facility] [place] [address] * Tacrolimus level (04/13/2018 8:14 AM EDT) Tacrolimus <2.0 ng/mL [facility] Comment: Trough therapeutic: ??5-15 ng/mL Performed by ultra-performance liquid chromatography tandem mass spectrometry (UPLCMS/MS). This test was developed and its performance characteristics determined by [facility]. It has not been cleared [...] MD CHEMISTRY ORDERAB LES Performing Organization Address [facility] Co de Phone Number [facility] [place] [address] * (ABNORMAL) Protein/Creatinine Ratio, urine (04/13/2018 3:45 AM EDT) Creatinine, Urine 51 mg/dL [facility] Protein, Urine 373(H) 0 - 12 mg/dL [facility] Protein / Creatinine Ratio, Urine 7.[address] [facility] Urine specimen (specimen) 04/13/2018 3:45 AM EDT 04/13/2018 3:55 AM EDT Narrative Resulting Agency Comment Spec In Lab Chase Olvera MD URINE ORDERABLES Performing Organization Address City/[facility]/ZIP Co de Phone Number [facility] [place] [address] * (ABNORMAL) Urinalysis Microscopic Exam (04/13/2018 1:51 AM EDT) RBC, Urine 4(H) 0 - 3 /HPF [facility] WBC, Urine 1 0 - 3 /HPF [facility] Transitional Epithelial Cells, Urine <1 <=1 /HPF [facility] Hyaline Casts, Urine 4(H) 0 - 2 /LPF [facility] Urine specimen obtained by clean catch procedure (specimen) 04/13/2018 1:51 AM EDT 04/13/2018 1:58 AM EDT Narrative Resulting Agency Comment Spec In Lab Rasta Hernández MD URINE ORDERABLES [facility] [place] [address] * (ABNORMAL) Urinalysis with reflex Culture (04/13/2018 1:51 AM EDT) Glucose, Urine Dipstick Negative Negative mg/dL ST [...] [facility] pH, Urn (dipstick) 7.0 5.0 - 8.0 [facility] Blood, Urine Dipstick Negative Negative mg/dL [facility] Ketone, Urine Dipstick Negative Negative mg/dL [facility] Nitrite, Urine Dipstick Negative Negative [facility] Leukocytes, Urine Dipstick Negative Negative [facility] Appearance, Urine Dipstick Clear Clear [facility] Specific [place] Urine Automated 1.017 1.002 - 1.030 [facility] Color, Urine Dipstick Yellow Yellow [facility] Reflex to Culture No [facility] Urine specimen obtained by clean catch procedure (specimen) 04/13/2018 1:51 AM EDT 04/13/2018 1:58 AM EDT Narrative Resulting Agency Comment Spec In Lab Chase Olvera MD URINE ORDERABLES [facility] [place] [address] * MRI Angiogram Neck wo Contrast (04/12/2018 [...] atherosclerosis, NO CONTRAST TECHNIQUE: MRA of the [place] and MRA of the neck were performed without IV contrast, with oure-zb-irvvrt technique. ?? COMPARISON: MR head 04/07/2018 FINDINGS: MRA [place]: The intracranial internal carotid arteries, vertebral arteries, basilar artery, superior cerebellar arteries are normal in course and caliber. The bilateral MARCUS, MCA, and BIOLOGY TEACHER are normal in course and caliber. No focal stenosis caliber change or aneurysm.. MRA neck: Dkqy-wh-nmlngt imaging excludes the arch. Vertebral arteries, common carotid arteries, bilateral ECA, ICA are normal in course and caliber. Procedure Note Sabrina Vargas MD - 04/12/2018 EXAMINATION: MRI ANGIOGRAM HEAD WO CONTRAST (GENERIC), MRI ANGIOGRAM NECKWO CONTRAST CLINICAL HISTORY: question intra cranial atherosclerosis, NO CONTRAST TECHNIQUE: MRA of the [place] and MRA of the neck were performed withoutIV contrast, with hrrh-wt-ksgejh technique. COMPARISON: MR head 04/07/2018 FINDINGS: MRA [place]: The intracranial internal carotid arteries, vertebral arteries, basilarartery, superior cerebellar arteries are normal in course and caliber. Thebilateral MARCUS, MCA, and BIOLOGY TEACHER are normal in course and caliber. No focal stenosiscaliber change or aneurysm.. MRA neck: Dgto-qp-ejkxzg imaging excludes the arch. Vertebral arteries, common [...] atherosclerosis, NO CONTRAST TECHNIQUE: MRA of the [place] and MRA of the neck were performed without IV contrast, with kaix-dv-ditntk technique. ?? COMPARISON: MR head 04/07/2018 FINDINGS: MRA [place]: The intracranial internal carotid arteries, vertebral arteries, basilar artery, superior cerebellar arteries are normal in course and caliber. The bilateral MARCUS, MCA, and BIOLOGY TEACHER are normal in course and caliber. No focal stenosis caliber change or aneurysm.. MRA neck: Rncl-wz-bvnxqx imaging excludes the arch. Vertebral arteries, common carotid arteries, bilateral ECA, ICA are normal in course and caliber. Procedure Note Sabrina Vargas MD - 04/12/2018 EXAMINATION: MRI ANGIOGRAM HEAD WO CONTRAST (GENERIC), MRI ANGIOGRAM NECKWO CONTRAST CLINICAL HISTORY: question intra cranial atherosclerosis, NO CONTRAST TECHNIQUE: MRA of the [place] and MRA of the neck were performed withoutIV contrast, with ccjm-dv-ulnpkf technique. COMPARISON: MR head 04/07/2018 FINDINGS: MRA [place]: The intracranial internal carotid arteries, vertebral arteries, basilarartery, superior cerebellar arteries are normal in course and caliber. Thebilateral MARCUS, MCA, and BIOLOGY TEACHER are normal in course and caliber. No focal stenosiscaliber change or aneurysm.. MRA neck: Vzhv-hb-vzbfkc imaging excludes the arch. Vertebral arteries, common carotid arteries, bilateral ECA, ICA are normalin course and caliber. IMPRESSION Normal MRA of the head and neck. I have personally reviewed the image(s) and the residents interpretationand agree with the findings, Sabrina Chacko MD at 04/12/2018 5:27 PM 5:27 PM Chase Olvera MD IMG MRI ORDERABLE S * Gold Tube HOLD (04/12/2018 8:40 AM EDT) [facility] Gold Hold Sample in lab. [facility] Blood specimen (specimen) Venous Draw / Unknown 04/12/2018 8:40 AM EDT 04/12/2018 9:16 AM EDT Apple Gutierrez MD CHEMISTRY ORDERABLES [facility] [place] [address] * (ABNORMAL) Differential, Automated (04/12/2018 8:40 AM EDT) [facility] Neutrophil % 65.6 % [facility] Neutrophil Absolute 3.27 1.70 - 6.10 x10(3)/ L [facility] Lymph % 15.6 % [facility] Lymphocytes Abs 0.8(L) 0.9 - 3.2 x10(3)/ L [facility] Monocyte % 11.0 % [facility] Monocyte Abs 0.6 0.3 - 0.9 x10(3)/ L [facility] Eos % 6.6 % [facility] Eosinophils Abs 0.3 0.0 - 0.4 x10(3)/[facility] Basophil % 0.6 % [facility] Baso Absolute 0.0 0.0 - 0.1 x10(3)/[facility] Immature Gran % 0.60 % [facility] Comment: Immature granulocytes(IG's)percentage and absolute count will include metamyelocytes, myelocytes, and promyelocytes. Blood smears from CBCs yielding IG's will be scanned manually for concordance. If this scan disagrees with the automated IG or if promyelocytes are noted, a manual differential will be performed. Immature Gran Absolute 0.03 0.00 - 0.04 x10(3)/[facility] Blood specimen (specimen) 04/12/2018 8:40 AM EDT 04/12/2018 9:15 AM EDT Narrative Resulting Agency Comment Spec In Lab Apple Gutierrez MD HEMATOLOGY ORDERABLE S [facility] [place] [address] * (ABNORMAL) Hemogram (04/12/2018 8:40 AM EDT) White Blood Cell 5.0 4.0 - 9.5 x10(3)/[facility] Red Blood Cell 2.60(L) 4.58 - 5.54 x10(6)/[facility] Hemoglobin 7.9(L) 13.7 - 16.5 gm/dL [facility] Hematocrit 24.0(L) 40.5 - 48.5 % [facility] Mean Cell Volume 92.3 82.9 - 93.[address] [facility] Mean Cell Hemoglobin 30.4 27.5 - 32.[address] [facility] Mean Cell Hemoglobin Concentration 32.9 32.0 - 35.7 gm/dL [facility] Platelet 183 145 - 357 x10(3)/mc L [facility] RDW Standard Deviation 54.2(H) 36.0 - 45.[address] [facility] RDW coefficient of variation 16.0(H) 11.4 - 13.8 % [facility] Mean Platelet Volume 8.8 7.6 - 12.[address] [facility] NRBC% auto 0.0 % [facility] NRBC Absolute 0.000 0.000 - 0.000 x10(3)/mc L [facility] Blood specimen (specimen) 04/12/2018 8:40 AM EDT 04/12/2018 9:15 AM EDT Narrative Resulting Agency Comment Spec In Lab Apple Gutierrez MD HEMATOLOGY ORDERABLE S Performing Organization Address City/State/[facility] Co de Phone Number [facility] [place] [address] * APTT (04/12/2018 8:40 AM EDT) Partial Thromboplastin Time 32 25 - [address] [facility] Comment: The PTT is NOT [...] BLES Performing Organization Address [facility] Co de Phone Number [facility] [place] [address] * (ABNORMAL) Prothrombin Time (04/12/2018 8:40 AM EDT) Prothrombin Time 20.0(H) 9.4 - 12.[address] [facility] International Normalization Ratio 1.8 [facility] Comment: An INR <2.0 indicates [...] BLES Performing Organization Address [facility] Co de Phone Number [facility] [place] [address] * (ABNORMAL) Basic Metabolic Panel (non-fasting) (04/12/2018 8:40 AM EDT) Pathologist [facility] Glucose 113 65 - 199 mg/dL [facility] Comment:Diabetes: >=200 mg/d L plus symptoms Blood Urea Nitrogen 31(H) 10 - 20 mg/dL [facility] Creatinine 2.35(H) 0.80 - 1.50 mg/dL [facility] Sodium 140 135 - 145 mmol/L [facility] Potassium 4.4 3.5 - 5.0 mmol/L [facility] Comment: Please note: ??Patients with WBC >100,000 may have falsely elevated Potassium levels. ??For accurate Potassium quantification in these patients send serum separator tube (gold top) for subsequent determinations. ??Contact the Clinical Chemistry Laboratory if there are any questions. Chloride 106 98 - 107 mmol/L [facility] Carbon Dioxide 20(L) 22 - 31 mmol/L [facility] Anion Gap 14 5 - 15 mmol/L [facility] Calcium 7.4(L) 8.5 - 10.5 mg/dL [facility] Est Glomerular Filtration Rate 30(L) >=60 mL/min/1. 73 m?? [facility] Comment: The eGFR was calculated using the CKD-EPI equation. As with all creatinine based estimates of kidney function, eGFR values calculated with the CKD-EPI equation are not accurate in patients with acute kidney failure, extremes of body mass or the acutely ill. [email or web address] eGFR 35(L) >=60 mL/min/1. 73 m?? [facility] Comment: The eGFR was calculated using the CKD-EPI equation. As with all creatinine based estimates of kidney function, eGFR values calculated with the CKD-EPI equation are not accurate in patients with acute kidney failure, extremes of body mass or the acutely ill. [email or web address] Blood specimen (specimen) 04/12/2018 8:40 AM EDT 04/12/2018 9:15 AM EDT Narrative Resulting Agency Comment Spec In Lab Hay Sparks MD CHEMISTRY ORDERABLES [facility] [place] [address] * ECHO COMPLETE (04/11/2018 2:53 PM EDT) EF 65 HEARTLAB SYSTEM Anatomical Region Laterality Modality Other 04/11/2018 Narrative 04/11/2018 3:21 PM EDT Amended Report Procedure: ?Transthoracic Echocardiogram Patient: ?ARNOL CHRISTY J ? (Age): 1960(57y) Med Rec#: ? [id number] ?Sex: ?M ? Site Loc: ? [facility] ?Ht / Wt: ??178(cm)/91.6(kg Pt. Loc: ?Adult Floor ? BSA: ?2.1 Study Date: ?? 04/11/2018 ?Pt. Type: Outpatient Tape: ? Referring: Lida Peter Reading: Tim Estrella ([id number]) Shovel Operator: Chidi Steve [facility] Shovel Operator 2: Yimi Norman Diagnosis: *Cerebral infarction due [...] ? Mid-Inferior ?Normal ? Mid-Inferoseptal ?Normal ? [place]-Septal ? Normal ? [place]-Anterior ? Normal ? [place]-Lateral ?Normal ? [place]-Inferior ? Normal ? [place]-Tip ?Normal ? This report has been electronically signed by: Tim Estrella M.D. ? 04/11/2018 15:21:34 Images reviewed and interpretation verified [facility]iac Ultrasound [facility] Procedure Note Tim Estrella MD - 04/11/2018 Amended Report Procedure: Transthoracic Echocardiogram Patient: ARNOL Chacko DOB(Age): 1960(57y) Med Rec#: [id number] Sex: M Site Loc: [facility] Ht / Wt: 178(cm)/91.6(kg Pt. Loc: Adult Floor BSA: 2.1 Study Date: 04/11/2018 Pt. Type: Outpatient Tape: Referring: Lida Peter Reading: Tim Estrella ([id number]) Shovel Operator: Chidi Steve [facility] Shovel Operator 2: Yimi Norman Diagnosis: *Cerebral infarction due [...] Normal Mid-Posterolateral Normal Mid-Inferior Normal Mid-Inferoseptal Normal [place]-Septal Normal [place]-Anterior Normal [place]-Lateral Normal [place]-Inferior Normal [place]-Tip Normal This report has been electronically signed by: Tim Estrella M.D. 04/11/2018 15:21:34 Images reviewed and interpretation verified [facility] Lida Peter MD ECHO ORDERABLES * ABORH Recheck Status (04/11/2018 6:28 AM EDT) ABORH Type Recheck Completed [facility] Blood specimen (specimen) 04/11/2018 6:28 AM EDT 04/11/2018 6:28 AM EDT Narrative Resulting Agency Comment Spec In Lab Hanny Wiseman MD BLOOD BANK LAB ORDER [facility]LLY [facility] [place] [address] * Antibody screen (04/11/2018 6:28 AM EDT) Ab Screen Interp Negative [facility] Expires at [id number] on: 04/14/2018 [facility] Blood specimen (specimen) 04/11/2018 6:28 AM EDT 04/11/2018 6:28 AM EDT Narrative Resulting Agency Comment Spec In Lab Hanny Wiseman MD BLOOD BANK LAB ORDER [facility] [place] [address] * ABO/Rh Typing (04/11/2018 6:28 AM EDT) ABORH Type A Pos [facility] Blood specimen (specimen) 04/11/2018 6:28 AM EDT 04/11/2018 6:28 AM EDT Narrative Resulting Agency Comment Spec In Lab Hanny Wiseman MD BLOOD BANK LAB ORDER KELLY [facility] [place] [address] * (ABNORMAL) Differential, Automated (04/11/2018 5:55 AM EDT) Neutrophil % 68.9 % [facility] Neutrophil Absolute 3.90 1.70 - 6.10 x10(3)/mc L [facility] Lymph % 14.7 % [facility] Lymphocytes Abs 0.8(L) 0.9 - 3.2 x10(3)/ L [facility] Monocyte % 10.6 % [facility] Monocyte Abs 0.6 0.3 - 0.9 x10(3)/ L [facility] Eos % 4.9 % [facility] Eosinophils Abs 0.3 0.0 - 0.4 x10(3)/ L [facility] Basophil % 0.4 % [facility] Baso Absolute 0.0 0.0 - 0.1 x10(3)/ L [facility] Immature Gran % 0.50 % [facility] Comment: Immature granulocytes(IG's)percentage and absolute count will include metamyelocytes, myelocytes, and promyelocytes. Blood smears from CBCs yielding IG's will be scanned manually for concordance. If this scan disagrees with the automated IG or if promyelocytes are noted, a manual differential will be performed. Immature Gran Absolute 0.03 0.00 - 0.04 x10(3)/mc L [facility] Blood specimen (specimen) 04/11/2018 5:55 AM EDT 04/11/2018 6:03 AM EDT Narrative Resulting Agency Comment Spec In Lab Apple Gutierrez MD HEMATOLOGY ORDERABLE S [facility] [place] [address] * (ABNORMAL) Hemogram (04/11/2018 5:55 AM EDT) [facility] Signature White Blood Cell 5.7 4.0 - 9.5 x10(3)/[facility] Red Blood Cell 2.44(L) 4.58 - 5.54 x10(6)/[facility] Hemoglobin 7.4(L) 13.7 - 16.5 gm/dL [facility] Hematocrit 22.2(L) 40.5 - 48.5 % [facility] Mean Cell Volume 91.0 82.9 - 93.[address] [facility] Mean Cell Hemoglobin 30.3 27.5 - 32.[address] [facility] Mean Cell Hemoglobin Concentration 33.3 32.0 - 35.7 gm/dL [facility] Platelet 150 145 - 357 x10(3)/[facility] RDW Standard Deviation 52.6(H) 36.0 - 45.0 [facility] RDW coefficient of variation 15.9(H) 11.4 - 13.8 % [facility] Mean Platelet Volume 9.1 7.6 - 12.9 [facility] NRBC% auto 0.0 % [facility] NRBC Absolute 0.000 0.000 - 0.000 x10(3)/[facility] Blood specimen (specimen) 04/11/2018 5:55 AM EDT 04/11/2018 6:03 AM EDT Narrative Resulting Agency Comment Spec In Lab Apple Gutierrez MD HEMATOLOGY ORDERABLE S [facility] [place] [address] * APTT (04/11/2018 5:55 AM EDT) [facility] Partial Thromboplastin Time 37 25 - [address] [facility] Comment: The PTT is NOT [...] BLES Performing Organization Address [facility] Co de Phone Number [facility] [place] [address] * (ABNORMAL) Prothrombin Time (04/11/2018 5:55 AM EDT) Prothrombin Time 26.8(H) 9.4 - 12.[address] [facility] International Normalization Ratio 2.4 [facility] Comment: An INR <2.0 indicates [...] BLES Performing Organization Address [facility] Co de Phone Number [facility] [place] [address] * (ABNORMAL) Basic Metabolic Panel (non-fasting) (04/11/2018 5:55 AM EDT) Glucose 112 65 - 199 mg/dL [facility] Comment:Diabetes: >=200 mg/d L plus symptoms Blood Urea Nitrogen 33(H) 10 - 20 mg/dL [facility] Creatinine 2.33(H) 0.80 - 1.50 mg/dL [facility] Sodium 144 135 - 145 mmol/L [facility] Potassium 4.5 3.5 - 5.0 mmol/L [facility] Comment: Please note: ??Patients with WBC >100,000 may have falsely elevated Potassium levels. ??For accurate Potassium quantification in these patients send serum separator tube (gold top) for subsequent determinations. ??Contact the Clinical Chemistry Laboratory if there are any questions. Chloride 110(H) 98 - 107 mmol/L [facility] Carbon Dioxide 22 22 - 31 mmol/L [facility] Anion Gap 12 5 - 15 mmol/L [facility] Calcium 7.3(L) 8.5 - 10.5 mg/dL [facility] Est Glomerular Filtration Rate 30(L) >=60 mL/min/1. 73 m?? [facility] Comment: The eGFR was calculated using the CKD-EPI equation. As with all creatinine based estimates of kidney function, eGFR values calculated with the CKD-EPI equation are not accurate in patients with acute kidney failure, extremes of body mass or the acutely ill. [email or web address]nkf eGFR 35(L) >=60 mL/min/1. 73 m?? [facility] Comment: The eGFR was calculated using the CKD-EPI equation. As with all creatinine based estimates of kidney function, eGFR values calculated with the CKD-EPI equation are not accurate in patients with acute kidney failure, extremes of body mass or the acutely ill. [email or web address] Blood specimen (specimen) 04/11/2018 5:55 AM EDT 04/11/2018 6:04 AM EDT Narrative Resulting Agency Comment Spec In Lab Hay Sparks MD CHEMISTRY ORDERABLES [facility] [place] [address] * POCT Glucose (04/10/2018 7:56 AM EDT) Glucose, POC 119 65 - 199 mg/dL [facility] Comment: Supplemental ranges: <140 mg/dL before meals <180 mg/dL all other times of the day Blood specimen (specimen) 04/10/2018 7:56 AM EDT 04/10/2018 7:56 AM EDT Chase Olvera MD POINT OF CARE SHAZIA T ORDERABLES [facility] [place] [address] * (ABNORMAL) Differential, Automated (04/10/2018 5:35 AM EDT) Neutrophil % 72.4 % [facility] Neutrophil Absolute 4.21 1.70 - 6.10 x10(3)/mc L [facility] Lymph % 12.7 % [facility] Lymphocytes Abs 0.7(L) 0.9 - 3.2 x10(3)/mc L [facility] Monocyte % 9.1 % [facility] Monocyte Abs 0.5 0.3 - 0.9 x10(3)/mc L [facility] Eos % 5.0 % [facility] Eosinophils Abs 0.3 0.0 - 0.4 x10(3)/mc L [facility] Basophil % 0.3 % [facility] Baso Absolute 0.0 0.0 - 0.1 x10(3)/mc L [facility] Immature Gran % 0.50 % [facility] Comment: Immature granulocytes(IG's)percentage and absolute count will include metamyelocytes, myelocytes, and promyelocytes. Blood smears from CBCs yielding IG's will be scanned manually for concordance. If this scan disagrees with the automated IG or if promyelocytes are noted, a manual differential will be performed. Immature Gran Absolute 0.03 0.00 - 0.04 x10(3)/mc L [facility] Blood specimen (specimen) 04/10/2018 5:35 AM EDT 04/10/2018 6:09 AM EDT Narrative Resulting Agency Comment Spec In Lab Apple Gutierrez MD HEMATOLOGY ORDERABLE S [facility] [place] [address] * (ABNORMAL) Hemogram (04/10/2018 5:35 AM EDT) White Blood Cell 5.8 4.0 - 9.5 x10(3)/mc L [facility] Red Blood Cell 2.44(L) 4.58 - 5.54 x10(6)/mc L [facility] Hemoglobin 7.3(L) 13.7 - 16.5 gm/dL [facility] Hematocrit 22.0(L) 40.5 - 48.5 % [facility] Mean Cell Volume 90.2 82.9 - 93.1 [facility] Mean Cell Hemoglobin 29.9 27.5 - 32.[address] [facility] Mean Cell Hemoglobin Concentration 33.2 32.0 - 35.7 gm/dL [facility] Platelet 105(L) 145 - 357 x10(3)/mc L [facility] RDW Standard Deviation 52.6(H) 36.0 - 45.0 [facility] RDW coefficient of variation 15.9(H) 11.4 - 13.8 % [facility] Mean Platelet Volume 9.6 7.6 - 12.9 [facility] NRBC% auto 0.0 % [facility] NRBC Absolute 0.000 0.000 - 0.000 x10(3)/ L [facility] Blood specimen (specimen) 04/10/2018 5:35 AM EDT 04/10/2018 6:09 AM EDT Narrative Resulting Agency Comment Spec In Lab Apple Gutierrez MD HEMATOLOGY ORDERABLE S [facility] [place] [address] * APTT (04/10/2018 5:35 AM EDT) Partial Thromboplastin Time 36 25 - [address] [facility] Comment: The PTT is NOT appropriate for heparin monitoring. Use the Anti-Xa level for heparin monitoring (HEP UFH) or LMWH monitoring (HEP LMW). A PTT less than 37 seconds generally indicates adequate hemostasis. Blood specimen (specimen) 04/10/2018 5:35 AM EDT 04/10/2018 6:09 AM EDT Narrative Resulting Agency Comment Spec In Lab Chase Olvera MD HEMATOLOGY ORDERA BLES Performing Organization Address [facility] Co de Phone Number [facility] [place] [address] * (ABNORMAL) Prothrombin Time (04/10/2018 5:35 AM EDT) Prothrombin Time 28.7(H) 9.4 - 12.[address] [facility] International Normalization Ratio 2.6 [facility] Comment: An INR <2.0 indicates [...] BLES Performing Organization Address [facility] Co de Phone Number [facility] [place] [address] * (ABNORMAL) Basic Metabolic Panel (non-fasting) (04/10/2018 5:35 AM EDT) Glucose 112 65 - 199 mg/dL [facility] Comment:Diabetes: >=200 mg/d L plus symptoms Blood Urea Nitrogen 33(H) 10 - 20 mg/dL [facility] Creatinine 2.59(H) 0.80 - 1.50 mg/dL [facility] Sodium 144 135 - 145 mmol/L [facility] Potassium 4.3 3.5 - 5.0 mmol/L [facility] Comment: Please note: ??Patients with WBC >100,000 may have falsely elevated Potassium levels. ??For accurate Potassium quantification in these patients send serum separator tube (gold top) for subsequent determinations. ??Contact the Clinical Chemistry Laboratory if there are any questions. Chloride 109(H) 98 - 107 mmol/L [facility] Carbon Dioxide 23 22 - 31 mmol/L [facility] [facility] Anion Gap 12 5 - 15 mmol/L [facility] Calcium 7.9(L) 8.5 - 10.5 mg/dL [facility] Est Glomerular Filtration Rate 27(L) >=60 mL/min/1. 73 m?? [facility] Comment: The eGFR was calculated using the CKD-EPI equation. As with all creatinine based estimates of kidney function, eGFR values calculated with the CKD-EPI equation are not accurate in patients with acute kidney failure, extremes of body mass or the acutely ill. [email or web address]/[facility]nkf eGFR 31(L) >=60 mL/min/1. 73 m?? [facility] Comment: The eGFR was calculated using the CKD-EPI equation. As with all creatinine based estimates of kidney function, eGFR values calculated with the CKD-EPI equation are not accurate in patients with acute kidney failure, extremes of body mass or the acutely ill. [email or web address]nkf Blood specimen (specimen) 04/10/2018 5:35 AM EDT 04/10/2018 6:09 AM EDT Narrative Resulting Agency Comment Spec In Lab Hay Sparks MD CHEMISTRY ORDERABLES [facility] [place] [address] * POCT Glucose (04/09/2018 8:26 PM EDT) Glucose, POC 137 65 - 199 mg/dL [facility] Comment: Supplemental ranges: <140 mg/dL before meals <180 mg/dL all other times of the day Blood specimen (specimen) 04/09/2018 8:26 PM EDT 04/09/2018 8:26 PM EDT Chase Olvera MD POINT OF CARE SHAZIA T ORDERABLES Performing Organization Address [facility] Co de Phone Number [facility] [place] [address] * APTT (04/09/2018 8:25 PM EDT) Partial Thromboplastin Time 37 25 - [address] [facility] Comment: The PTT is NOT appropriate for heparin monitoring. Use the Anti-Xa level for heparin monitoring (HEP UFH) or LMWH monitoring (HEP LMW). A PTT less than 37 seconds generally indicates adequate hemostasis. Blood specimen (specimen) 04/09/2018 8:25 PM EDT 04/09/2018 8:30 PM EDT Narrative Resulting Agency Comment Spec In Lab Lida Peter MD HEMATOLOGY ORDERABLE S Performing Organization Address [facility] Co de Phone Number [facility] [place] [address] * (ABNORMAL) Prothrombin Time (04/09/2018 8:25 PM EDT) Prothrombin Time 30.4(H) 9.4 - 12.[address] [facility] International Normalization Ratio 2.7 [facility] Comment: An INR <2.0 indicates [...] MD HEMATOLOGY ORDERABLE S Performing Organization Address [facility] de Phone Number [facility] [place] [address] * Transfuse thawed plasma (04/09/2018 6:04 PM EDT) Lida Peter MD NURSING TREATMENT OR DERABLES - BLOOD ADMIN * Transfuse thawed plasma (04/09/2018 4:29 PM EDT) Lida Peter MD NURSING TREATMENT OR DERABLES - BLOOD ADMIN * Transfuse thawed plasma (04/09/2018 1:52 PM EDT) Chase Olvera MD NURSING TREATMENT ORDERABLES - BLOOD ADMIN * Prepare thawed plasma (04/09/2018 11:05 AM EDT) Dispensed? Yes [facility] Blood specimen (specimen) 04/09/2018 11:05 AM EDT 04/09/2018 11:07 AM EDT Lida Peter MD BLOOD BANK PRODUCT O RDERABLES Performing Organization Address [facility] Co de Phone Number [facility] [place] [address] * (ABNORMAL) APTT (04/09/2018 10:03 AM EDT) Partial Thromboplastin Time 39(H) 25 - [address] [facility] Comment: The PTT is NOT appropriate for heparin monitoring. Use the Anti-Xa level for heparin monitoring (HEP UFH) or LMWH monitoring (HEP LMW). A PTT less than 37 seconds generally indicates adequate hemostasis. Blood specimen (specimen) 04/09/2018 10:03 AM EDT 04/09/2018 10:13 AM EDT Narrative Resulting Agency Comment Spec In Lab Lida Peter MD HEMATOLOGY ORDERABLE S [facility] [place] [address] * (ABNORMAL) Prothrombin Time (04/09/2018 10:03 AM EDT) Prothrombin Time 47.7(H) 9.4 - 12.[address] [facility] International Normalization Ratio 4.2 [facility] Comment: An INR <2.0 indicates [...] Lab Lida Peter MD HEMATOLOGY ORDERABLE S [facility] [place] [address] * Differential, Automated (04/09/2018 3:05 AM EDT) Neutrophil % 74.9 % [facility] Neutrophil Absolute 6.08 1.70 - 6.10 x10(3)/[facility] LAB[facility]AT[facility] Lymph % 12.2 % [facility] Lymphocytes Abs 1.0 0.9 - 3.2 x10(3)/[facility] Monocyte % 8.7 % [facility] Monocyte Abs 0.7 0.3 - 0.9 x10(3)/[facility] Eos % 3.2 % [facility] Eosinophils Abs 0.3 0.0 - 0.4 x10(3)/[facility] Basophil % 0.5 % [facility] Baso Absolute 0.0 0.0 - 0.1 x10(3)/[facility] Immature Gran % 0.50 % [facility] Comment: Immature granulocytes(IG's)percentage and absolute count will include metamyelocytes, myelocytes, and promyelocytes. Blood smears from CBCs yielding IG's will be scanned manually for concordance. If this scan disagrees with the automated IG or if promyelocytes are noted, a manual differential will be performed. Immature Gran Absolute 0.04 0.00 - 0.04 x10(3)/[facility] Blood specimen (specimen) 04/09/2018 3:05 AM EDT 04/09/2018 3:13 AM EDT Narrative Resulting Agency Comment Spec In Lab Apple Gutierrez MD HEMATOLOGY ORDERABLE S Performing Organization Address City/State/[facility] Co de Phone Number [facility] [place] [address] * (ABNORMAL) Hemogram (04/09/2018 3:05 AM EDT) White Blood Cell 8.1 4.0 - 9.5 x10(3)/[facility] Red Blood Cell 2.55(L) 4.58 - 5.54 x10(6)/[facility] Hemoglobin 7.8(L) 13.7 - 16.5 gm/dL [facility] Hematocrit 22.8(L) 40.5 - 48.5 % [facility] Mean Cell Volume 89.4 82.9 - 93.[address] [facility] Mean Cell Hemoglobin 30.6 27.5 - 32.[address] [facility] Mean Cell Hemoglobin Concentration 34.2 32.0 - 35.7 gm/dL [facility] Platelet 100(L) 145 - 357 x10(3)/[facility] RDW Standard Deviation 53.7(H) 36.0 - 45.[address] [facility] RDW coefficient of variation 16.6(H) 11.4 - 13.8 % [facility] Mean Platelet Volume 8.9 7.6 - 12.[address] [facility] NRBC% auto 0.0 % [facility] NRBC Absolute 0.000 0.000 - 0.000 x10(3)/mc L [facility] Blood specimen (specimen) 04/09/2018 3:05 AM EDT 04/09/2018 3:13 AM EDT Narrative Resulting Agency Comment Spec In Lab Apple Gutierrez MD HEMATOLOGY ORDERABLE S [facility] [place] [address] * (ABNORMAL) Basic Metabolic Panel (non-fasting) (04/09/2018 3:05 AM EDT) Glucose 122 65 - 199 mg/dL [facility] Comment:Diabetes: >=200 mg/d L plus symptoms Blood Urea Nitrogen 44(H) 10 - 20 mg/dL [facility] Creatinine 3.00(H) 0.80 - 1.50 mg/dL [facility] Sodium 146(H) 135 - 145 mmol/L [facility] Potassium 4.9 3.5 - 5.0 mmol/L [facility] Comment: Please note: ??Patients with WBC >100,000 may have falsely elevated Potassium levels. ??For accurate Potassium quantification in these patients send serum separator tube (gold top) for subsequent determinations. ??Contact the Clinical Chemistry Laboratory if there are any questions. Chloride 110(H) 98 - 107 mmol/L [facility] Carbon Dioxide 21(L) 22 - 31 mmol/L [facility] Anion Gap 15 5 - 15 mmol/L [facility] Calcium 7.7(L) 8.5 - 10.5 mg/dL [facility] Est Glomerular Filtration Rate 22(L) >=60 mL/min/1. 73 m?? [facility] Comment: The eGFR was calculated using the CKD-EPI equation. As with all creatinine based estimates of kidney function, eGFR values calculated with the CKD-EPI equation are not accurate in patients with acute kidney failure, extremes of body mass or the acutely ill. [email or web address]://[email or web address]/[facility]nkf eGFR 26(L) >=60 mL/min/1. 73 m?? [facility] Comment: The eGFR was calculated using the CKD-EPI equation. As with all creatinine based estimates of kidney function, eGFR values calculated with the CKD-EPI equation are not accurate in patients with acute kidney failure, extremes of body mass or the acutely ill. [email or web address]nkf Blood specimen (specimen) 04/09/2018 3:05 AM EDT 04/09/2018 3:13 AM EDT Narrative Resulting Agency Comment Spec In Lab Hay Sparks MD CHEMISTRY ORDERABLES Performing Organization Address [facility]/ZIP Co de Phone Number [facility] [place] [address] * Lavender Tube HOLD (04/08/2018 8:10 PM EDT) Pathologist [facility] Lavender Hold Sample in lab. [facility] Blood specimen (specimen) Venous Draw / Unknown 04/08/2018 8:10 PM EDT 04/08/2018 8:26 PM EDT John Rose MD HEMATOLOGY ORDERABLE S Performing Organization Address [facility]/ZIP Co de Phone Number [facility] [place] [address] * (ABNORMAL) Phenytoin level, total and free (04/08/2018 8:10 PM EDT) Pathologist [facility] Phenytoin 7.3(L) 10.0 - 20.0 mg/L [facility] Comment: Theraputic range: ??10-20 mg/L Toxic: ??> 25 mg/L Patients with renal dysfunction (e.g.creatinine clearance < 30 mls/min) may show falsely elevated results due to accumulation of metabolites in renal failure Phenytoin, Free 0.95(L) 1.00 - 2.00 mg/L [facility] Comment: Therapeutic range: ? Free phenytoin: ??1.00-2.00 mg/L ? % Free phenytoin: ??8-12% Toxic range: ? Free phenytoin: ??>3.00 mg/L This test was developed and its performance characteristics determined by [facility]. It has not been cleared or approved by the FDA. The laboratory is regulated under CLIA as qualified to perform high-complexity testing. This test is used for clinical purposes. It should not be regarded as investigational or for research. Phenyt Free % 13(H) 8 - 12 % [facility] Comment: This test was developed and its performance characteristics determined by [facility]. It has not been cleared [...] Peter MD CHEMISTRY ORDERABLES Performing Organization Address City/State/[facility] Co de Phone Number [facility] [place] [address] * Transfuse RBC (04/08/2018 4:59 PM EDT) Lida Peter MD NURSING TREATMENT OR DERABLES - BLOOD ADMIN * Transfuse RBC (04/08/2018 4:59 PM EDT) Lida Peter MD NURSING TREATMENT OR DERABLES - BLOOD ADMIN * EEG awake, asleep, drowsy, routine (04/08/2018 3:45 PM EDT) Narrative Beth Colunga - 04/08/2018 3:45 PM EDT Beth Colunga ? 04/08/2018 ??3:45 PM [facility] Department of Neurology In Patient Routine EEG [...] channel digitized electroencephalogram was performed in the [facility] Clinical Neurophysiology Laboratory. The 10/20 international system of electrode placement was used and bipolar and referential electrode montages were recorded. ??In addition to EEG the patient was monitored for EKG and lateral/vertical eye movements. Video was recorded during the session. The duration of the recording was 30 minutes. NAILER MACHINE'S REPORT: Performed by: AT Patient was not sleep deprived. Sleep was not attained. Photic stimulation was performed. Hyperventilation was not performed. Effort was was not adequate. Movement and other artifact was not significant. Comments: none Lida Peter MD NEUROLOGY ORDERABLES * Carotid Duplex, Bilateral (04/08/2018 2:49 PM EDT) VB Text Report Department: Vascular Surgery Lab Patient: [id number] (CHRISTY AMBROSE) CPT: 45323 ICD10: I63.9 Referring Physician: LIDA PETER ?? [...] Peter MD VASCULAR ORDERABLES Performing Organization Address City/[facility]/ZIP Co de Phone Number [facility] * (ABNORMAL) Levetiracetam level (04/08/2018 1:55 PM EDT) Levetiracetam Lvl (NOVEMBER) 47.4(H) 12.0 - 46.0 mcg/mL [facility] Comment: ADDITIONAL INFORMATION This test was developed and its performance characteristics determined by [facility] in a manner consistent with CLIA requirements. This test has not been cleared or approved by the U.S. Food and Drug Administration. Test Performed by: [facility] [address] [place] [address] Blood specimen (specimen) 04/08/2018 1:55 PM EDT 04/08/2018 3:54 PM EDT Narrative Resulting Agency Comment Spec In Lab Lida Peter MD LAB SEND OUT ORDERAB LES Performing Organization Address [facility] Co de Phone Number [facility] [place] [address] * Prepare RBC (04/08/2018 11:15 AM EDT) Dispensed? No [facility] Blood specimen (specimen) 04/08/2018 11:15 AM EDT 04/08/2018 11:11 AM EDT Lida Peter MD BLOOD BANK PRODUCT O RDERABLES Performing Organization Address City/[facility]/ZIP Co de Phone Number [facility] [place] [address] * Prepare RBC (04/08/2018 11:15 AM EDT) Dispensed? Yes [facility] Blood specimen (specimen) 04/08/2018 11:15 AM EDT 04/08/2018 11:11 AM EDT Lida Peter MD BLOOD BANK PRODUCT O RDERABLES Performing Organization Address [facility] de Phone Number [facility] [place] [address] * (ABNORMAL) APTT (04/08/2018 10:45 AM EDT) Partial Thromboplastin Time 38(H) 25 - [address] [facility] Comment: The PTT is NOT appropriate for heparin monitoring. Use the Anti-Xa level for heparin monitoring (HEP UFH) or LMWH monitoring (HEP LMW). A PTT less than 37 seconds generally indicates adequate hemostasis. Blood specimen (specimen) 04/08/2018 10:45 AM EDT 04/08/2018 10:55 AM EDT Narrative Resulting Agency Comment Spec In Lab Lida Peter MD HEMATOLOGY ORDERABLE S Performing Organization Address [facility] Phone Number [facility] [place] [address] * (ABNORMAL) Prothrombin Time (04/08/2018 10:45 AM EDT) Prothrombin Time 51.2(H) 9.4 - 12.[address] [facility] International Normalization Ratio 4.5 [facility] Comment: An INR <2.0 indicates [...] MD HEMATOLOGY ORDERABLE S Performing Organization Address [facility] Co de Phone Number [facility] [place] [address] * (ABNORMAL) CK (04/08/2018 10:45 AM EDT) Creatine Kinase 646(H) 0 - 200 unit/L [facility] Blood specimen (specimen) 04/08/2018 10:45 AM EDT 04/08/2018 10:55 AM EDT Narrative Resulting Agency Comment Spec In Lab Lida Peter MD CHEMISTRY ORDERABLES Performing Organization Address [facility] Co de Phone Number [facility] [place] [address] * (ABNORMAL) Hemoglobin and Hematocrit, blood (04/08/2018 10:45 AM EDT) Hemoglobin 7.2(L) 13.7 - 16.5 gm/dL [facility] Hematocrit 21.3(L) 40.5 - 48.5 % [facility] Blood specimen (specimen) 04/08/2018 10:45 AM EDT 04/08/2018 10:55 AM EDT Narrative Resulting Agency Comment Spec In Lab Lida Peter MD HEMATOLOGY ORDERABLE S Performing Organization Address [facility] Co de Phone Number [facility] [place] [address] * Tacrolimus level (04/08/2018 8:30 AM EDT) Tacrolimus 2.1 ng/mL [facility] Comment: Trough therapeutic: ??5-15 ng/mL Performed by ultra-performance liquid chromatography tandem mass spectrometry (UPLCMS/MS). This test was developed and its performance characteristics determined by [facility]. It has not been cleared or [...] ORDERABLES Performing Organization Address [facility] Co de Phone Number [facility] [place] [address] * Prepare RBC (04/08/2018 4:55 AM EDT) Pathologist [facility] Dispensed? Yes [facility] Blood specimen (specimen) 04/08/2018 4:55 AM EDT 04/08/2018 4:59 AM EDT Lida Peter MD BLOOD BANK PRODUCT O RDERABLES Performing Organization Address [facility] Co de Phone Number [facility] [place] [address] * Blue Tube HOLD (04/08/2018 4:05 AM EDT) [facility] Blue Hold Sample in lab. [facility] Blood specimen (specimen) Venous Draw / Unknown 04/08/2018 4:05 AM EDT 04/08/2018 4:21 AM EDT Apple Gutierrez MD HEMATOLOGY ORDERABLE S Performing Organization Address [facility] Co de Phone Number [facility] [place] [address] * (ABNORMAL) Differential, Automated (04/08/2018 4:05 AM EDT) Pathologist [facility] Neutrophil % 81.8 % [facility] Neutrophil Absolute 7.13(H) 1.70 - 6.10 x10(3)/mc L [facility] Lymph % 8.0 % [facility] Lymphocytes Abs 0.7(L) 0.9 - 3.2 x10(3)/[facility] Monocyte % 7.9 % [facility] Monocyte Abs 0.7 0.3 - 0.9 x10(3)/[facility] Eos % 1.8 % [facility] Eosinophils Abs 0.2 0.0 - 0.4 x10(3)/[facility] Basophil % 0.2 % [facility] Baso Absolute 0.0 0.0 - 0.1 x10(3)/[facility] Immature Gran % 0.30 % [facility] Comment: Immature granulocytes(IG's)percentage and absolute count will include metamyelocytes, myelocytes, and promyelocytes. Blood smears from CBCs yielding IG's will be scanned manually for concordance. If this scan disagrees with the automated IG or if promyelocytes are noted, a manual differential will be performed. Immature Gran Absolute 0.03 0.00 - 0.04 x10(3)/[facility] Blood specimen (specimen) 04/08/2018 4:05 AM EDT 04/08/2018 4:21 AM EDT Narrative Resulting Agency Comment Spec In Lab Apple Gutierrez MD HEMATOLOGY ORDERABLE S [facility] [place] [address] * (ABNORMAL) Hemogram (04/08/2018 4:05 AM EDT) White Blood Cell 8.7 4.0 - 9.5 x10(3)/[facility] Red Blood Cell 2.26(L) 4.58 - 5.54 x10(6)/[facility] Hemoglobin 6.8(L) 13.7 - 16.5 gm/dL [facility] Hematocrit 20.4(L) 40.5 - 48.5 % [facility] Mean Cell Volume 90.3 82.9 - 93.[address] [facility] Mean Cell Hemoglobin 30.1 27.5 - 32.[address] [facility] Mean Cell Hemoglobin Concentration 33.3 32.0 - 35.7 gm/dL [facility] Platelet 94(L) 145 - 357 x10(3)/mc L [facility] RDW Standard Deviation 57.9(H) 36.0 - 45.[address] [facility] RDW coefficient of variation 17.7(H) 11.4 - 13.8 % [facility] Mean Platelet Volume 9.7 7.6 - 12.[address] [facility] NRBC% auto 0.0 % [facility] NRBC Absolute 0.000 0.000 - 0.000 x10(3)/mc L [facility] Blood specimen (specimen) 04/08/2018 4:05 AM EDT 04/08/2018 4:21 AM EDT Narrative Resulting Agency Comment Spec In Lab Apple Gutierrez MD HEMATOLOGY ORDERABLE S [facility] [place] [address] * (ABNORMAL) Basic Metabolic Panel (non-fasting) (04/08/2018 4:05 AM EDT) Glucose 120 65 - 199 mg/dL [facility] Comment:Diabetes: >=200 mg/d L plus symptoms Blood Urea Nitrogen 47(H) 10 - 20 mg/dL [facility] Creatinine 2.93(H) 0.80 - 1.50 mg/dL [facility] Sodium 144 135 - 145 mmol/L [facility] Potassium 5.4(H) 3.5 - 5.0 mmol/L [facility] Comment: Please note: ??Patients with WBC >100,000 may have falsely elevated Potassium levels. ??For accurate Potassium quantification in these patients send serum separator tube (gold top) for subsequent determinations. ??Contact the Clinical Chemistry Laboratory if there are any questions. Chloride 115(H) 98 - 107 mmol/L [facility] Carbon Dioxide 16(L) 22 - 31 mmol/L [facility] Anion Gap 13 5 - 15 mmol/L [facility] Calcium 7.1(L) 8.5 - 10.5 mg/dL [facility] Comment:result rechecked-[place] Est Glomerular Filtration Rate 23(L) >=60 mL/min/1. 73 m?? [facility] Comment: The eGFR was calculated using the CKD-EPI equation. As with all creatinine based estimates of kidney function, eGFR values calculated with the CKD-EPI equation are not accurate in patients with acute kidney failure, extremes of body mass or the acutely ill. [email or web address]://[email or web address]/[facility]nk[facility] eGFR 26(L) >=60 mL/min/1. 73 m?? [facility] Comment: The eGFR was calculated using the CKD-EPI equation. As with all creatinine based estimates of kidney function, eGFR values calculated with the CKD-EPI equation are not accurate in patients with acute kidney failure, extremes of body mass or the acutely ill. [email or web address]/[facility] Blood specimen (specimen) 04/08/2018 4:05 AM EDT 04/08/2018 4:21 AM EDT Narrative Resulting Agency Comment Spec In Lab Hay Sparks MD CHEMISTRY ORDERABLES [facility] [place] [address] * MRI Brain wo Contrast (04/07/2018 9:11 [...] thoracic and lumbar spine were performed at [facility] on 04/06/2018. COMPARISON: CT chest and [...] thoracic and lumbar spine were performed at [facility] on 04/06/2018. COMPARISON: CT chest and [...] * POCT Glucose (04/07/2018 5:56 AM EDT) [facility] Glucose, POC 136 65 - 199 mg/dL [facility] Comment: Supplemental ranges: <140 mg/dL before meals <180 mg/dL all other times of the day Blood specimen (specimen) 04/07/2018 5:56 AM EDT 04/07/2018 5:56 AM EDT Lida Peter MD POINT OF CARE TEST O RDERABLES [facility] [place] [address] * (ABNORMAL) Cardiac Enzymes (LEB/CGP) (04/07/2018 5:55 AM EDT) [facility] Troponin-T 0.15(H) 0.00 - 0.00 ng/mL [facility] Comment: The 99th percentile for Troponin T is less than 0.01 ng/mL, any detectable cTnT concentration using this assay should be considered elevated. According to the third universal definition of myocardial infarction the following criteria with a clinical presentation consistent with acute myocardial ischemia meets the diagnosis for a myocardial infarction (OR). Detection of a rise and/or fall of cTnT, with at least one value greater than the 99th percentile (> or = 0.01) and with at least one of the following ?? Symptoms of ischemia ?? New or presumed new significant ED-rcksqse-V wave (ST-T) changes or new left bundle [...] additional sample may be indicated. Reference: Third Temple Definition of Myocardial Infarction. Journal of the [place] [employer] 2012;60:1581-98 Creatine Kinase 700(H) 0 - 200 unit/L [facility] Blood specimen (specimen) 04/07/2018 5:55 AM EDT 04/07/2018 6:34 AM EDT Narrative Resulting Agency Comment Spec In Lab Lida Peter MD CHEMISTRY ORDERABLES Performing Organization Address [facility] Co de Phone Number [facility] [place] [address] * (ABNORMAL) CK (04/07/2018 5:55 AM EDT) Creatine Kinase 699(H) 0 - 200 unit/L [facility] Blood specimen (specimen) 04/07/2018 5:55 AM EDT 04/07/2018 6:03 AM EDT Narrative Resulting Agency Comment Spec In Lab Lida Peter MD CHEMISTRY ORDERABLES Performing Organization Address [facility] Co de Phone Number [facility] [place] [address] * (ABNORMAL) Hemoglobin and Hematocrit, blood (04/07/2018 5:55 AM EDT) Hemoglobin 7.2(L) 13.7 - 16.5 gm/dL [facility] Hematocrit 21.2(L) 40.5 - 48.5 % [facility] Blood specimen (specimen) 04/07/2018 5:55 AM EDT 04/07/2018 6:03 AM EDT Narrative Resulting Agency Comment Spec In Lab Lida Peter MD HEMATOLOGY ORDERABLE S Performing Organization Address City/[facility]/ZIP Co de Phone Number [facility] [place] [address] * Lactate, whole blood, send to lab (Leb/CGP) (04/07/2018 5:55 AM EDT) Lactate WB 1.2 0.5 - 2.2 mmol/L [facility] Blood specimen (specimen) 04/07/2018 5:55 AM EDT 04/07/2018 6:03 AM EDT Narrative Resulting Agency Comment Spec In Lab Lida Peter MD CHEMISTRY ORDERABLES [facility] [place] [address] * (ABNORMAL) Basic Metabolic Panel (non-fasting) (04/07/2018 4:30 AM EDT) Pathologist [facility] Glucose 124 65 - 199 mg/dL [facility] Comment:Diabetes: >=200 mg/d L plus symptoms Blood Urea Nitrogen 50(H) 10 - 20 mg/dL [facility] Creatinine 2.68(H) 0.80 - 1.50 mg/dL [facility] Sodium 143 135 - 145 mmol/L [facility] Potassium 5.4(H) 3.5 - 5.0 mmol/L [facility] Comment: Please note: ??Patients with WBC >100,000 may have falsely elevated Potassium levels. ??For accurate Potassium quantification in these patients send serum separator tube (gold top) for subsequent determinations. ??Contact the Clinical Chemistry Laboratory if there are any questions. Chloride 116(H) 98 - 107 mmol/L [facility] Carbon Dioxide 16(L) 22 - 31 mmol/L [facility] Anion Gap 11 5 - 15 mmol/L [facility] Calcium 7.0(L) 8.5 - 10.5 mg/dL [facility] Est Glomerular Filtration Rate 25(L) >=60 mL/min/1. 73 m?? [facility] Comment: The eGFR was calculated using the CKD-EPI equation. As with all creatinine based estimates of kidney function, eGFR values calculated with the CKD-EPI equation are not accurate in patients with acute kidney failure, extremes of body mass or the acutely ill. [email or web address]nkf eGFR 29(L) >=60 mL/min/1. 73 m?? [facility] Comment: The eGFR was calculated using the CKD-EPI equation. As with all creatinine based estimates of kidney function, eGFR values calculated with the CKD-EPI equation are not accurate in patients with acute kidney failure, extremes of body mass or the acutely ill. [email or web address]nkf Blood specimen (specimen) 04/07/2018 4:30 AM EDT 04/07/2018 4:34 AM EDT Narrative Resulting Agency Comment Spec In Lab Lida Peter MD CHEMISTRY ORDERABLES Performing Organization Address [facility] Co de Phone Number [facility] [place] [address] * POCT Glucose (04/07/2018 3:35 AM EDT) Glucose, POC 131 65 - 199 mg/dL [facility] Comment: Supplemental ranges: <140 mg/dL before meals <180 mg/dL all other times of the day Blood specimen (specimen) 04/07/2018 3:35 AM EDT 04/07/2018 3:35 AM EDT Lida Peter MD POINT OF CARE TEST O RDERABLES Performing Organization Address [facility]/ZIP Co de Phone Number [facility] [place] [address] * Lactate, whole blood, send to lab (Leb/CGP) (04/07/2018 12:15 AM EDT) Lactate WB 1.5 0.5 - 2.2 mmol/L [facility] Blood specimen (specimen) 04/07/2018 12:15 AM EDT 04/07/2018 12:21 AM EDT Narrative Resulting Agency Comment Spec In Lab Lida Peter MD CHEMISTRY ORDERABLES Performing Organization Address [facility] Co de Phone Number [facility] [place] [address] * (ABNORMAL) CK (04/07/2018 12:15 AM EDT) Creatine Kinase 608(H) 0 - 200 unit/L [facility] Comment:result rechecked-RR Blood specimen (specimen) 04/07/2018 12:15 AM EDT 04/07/2018 12:21 AM EDT Narrative Resulting Agency Comment Spec In Lab Lida Peter MD CHEMISTRY ORDERABLES Performing Organization Address [facility] Co de Phone Number [facility] [place] [address] * (ABNORMAL) Hemoglobin and Hematocrit, blood (04/07/2018 12:15 AM EDT) Hemoglobin 7.9(L) 13.7 - 16.5 gm/dL [facility] Hematocrit 23.1(L) 40.5 - 48.5 % [facility] Blood specimen (specimen) 04/07/2018 12:15 AM EDT 04/07/2018 12:21 AM EDT Narrative Resulting Agency Comment Spec In Lab Lida Peter MD HEMATOLOGY ORDERABLE S Performing Organization Address [facility] Co de Phone Number [facility] [place] [address] * (ABNORMAL) Basic Metabolic Panel (non-fasting) (04/07/2018 12:15 AM EDT) Glucose 167 65 - 199 mg/dL [facility] Comment:Diabetes: >=200 mg/d L plus symptoms Blood Urea Nitrogen 48(H) 10 - 20 mg/dL [facility] Creatinine 2.58(H) 0.80 - 1.50 mg/dL [facility] Sodium 143 135 - 145 mmol/L [facility] Potassium 6.1(Criti constance) 3.5 - 5.0 mmol/L [facility] Comment: Called by: RUPINDER, Read back by: EVELIN CALLEJAS, Date/Time:04/07/18 01:06. Please note: ??Patients with WBC >100,000 may have falsely elevated Potassium levels. ??For accurate Potassium quantification in these patients send serum separator tube (gold top) for subsequent determinations. ??Contact the Clinical Chemistry Laboratory if there are any questions. Chloride 117(H) 98 - 107 mmol/L [facility] Carbon Dioxide 15(L) 22 - 31 mmol/L [facility] Anion Gap 11 5 - 15 mmol/L [facility] Calcium 6.8(Criti constance) 8.5 - 10.5 mg/dL [facility] Comment:Called by: RUPINDER, Read back by: EVELIN CALLEJAS, Date/Time:04/07/18 01:06. Est Glomerular Filtration Rate 27(L) >=60 mL/min/1. 73 m?? [facility] Comment: The eGFR was calculated using the CKD-EPI equation. As with all creatinine based estimates of kidney function, eGFR values calculated with the CKD-EPI equation are not accurate in patients with acute kidney failure, extremes of body mass or the acutely ill. [email or web address]nkf eGFR 31(L) >=60 mL/min/1. 73 m?? [facility] Comment: The eGFR was calculated using the CKD-EPI equation. As with all creatinine based estimates of kidney function, eGFR values calculated with the CKD-EPI equation are not accurate in patients with acute kidney failure, extremes of body mass or the acutely ill. [email or web address]nkf Blood specimen (specimen) 04/07/2018 12:15 AM EDT 04/07/2018 12:21 AM EDT Narrative Resulting Agency Comment Spec In Lab Lida Peter MD CHEMISTRY ORDERABLES Performing Organization Address City/[facility]/ZIP Co de Phone Number [facility] [place] [address] * POCT Glucose (04/06/2018 8:30 PM EDT) Glucose, POC 177 65 - 199 mg/dL [facility] Comment: Supplemental ranges: <140 mg/dL before meals <180 mg/dL all other times of the day Blood specimen (specimen) 04/06/2018 8:30 PM EDT 04/06/2018 8:30 PM EDT Lida Peter MD POINT OF CARE TEST O RDERABLES Performing Organization Address [facility]/ZIP Co de Phone Number [facility] [place] [address] * Request For 2nd Read CT Chest [...] the chest, abdomen, and pelvis performed at [facility] on 04/06/2018. 5 mm and 1 [...] Spleen: Normal. Kidneys/Adrenals: The RIGHT and LEFT [place] kidneys are severely atrophic. The patient status [...] chest, abdomen, and pelvis performed at an [facility] on 04/06/2018. 5 mm [...] Spleen: Normal. Kidneys/Adrenals: The RIGHT and LEFT [place] kidneys are severely atrophic.The patient status post [...] 5:40 PM EDT) Neutrophil % 85.6 % [facility] Neutrophil Absolute 7.32(H) 1.70 - 6.10 x10(3)/mc L [facility] Lymph % 4.8 % [facility] Lymphocytes Abs 0.4(L) 0.9 - 3.2 x10(3)/mc L [facility] Monocyte % 9.1 % [facility] Monocyte Abs 0.8 0.3 - 0.9 x10(3)/mc L [facility] Eos % 0.0 % [facility] Eosinophils Abs 0.0 0.0 - 0.4 x10(3)/mc L [facility] Basophil % 0.0 % [facility] Baso Absolute 0.0 0.0 - 0.1 x10(3)/mc L [facility] Immature Gran % 0.50 % [facility] Comment: Immature granulocytes(IG's)percentage and absolute count will include metamyelocytes, myelocytes, and promyelocytes. Blood smears from CBCs yielding IG's will be scanned manually for concordance. If this scan disagrees with the automated IG or if promyelocytes are noted, a manual differential will be performed. Immature Gran Absolute 0.04 0.00 - 0.04 x10(3)/mc L [facility] Blood specimen (specimen) 04/06/2018 5:40 PM EDT 04/06/2018 6:01 PM EDT Narrative Resulting Agency Comment Spec In Lab Natalya Minaya MD HEMATOLOGY ORDERABLE S [facility] [place] [address] * (ABNORMAL) Hemogram (04/06/2018 5:40 PM EDT) White Blood Cell 8.6 4.0 - 9.5 x10(3)/[facility] Red Blood Cell 2.56(L) 4.58 - 5.54 x10(6)/[facility] Hemoglobin 7.8(L) 13.7 - 16.5 gm/dL [facility] Hematocrit 23.1(L) 40.5 - 48.5 % [facility] Mean Cell Volume 90.2 82.9 - 93.1 [facility] Mean Cell Hemoglobin 30.5 27.5 - 32.[address] [facility] Mean Cell Hemoglobin Concentration 33.8 32.0 - 35.7 gm/dL [facility] Platelet 95(L) 145 - 357 x10(3)/[facility] RDW Standard Deviation 53.6(H) 36.0 - 45.0 [facility] RDW coefficient of variation 16.6(H) 11.4 - 13.8 % [facility] Mean Platelet Volume 9.5 7.6 - 12.9 [facility] NRBC% auto 0.0 % [facility] NRBC Absolute 0.000 0.000 - 0.000 x10(3)/ L [facility] Blood specimen (specimen) 04/06/2018 5:40 PM EDT 04/06/2018 6:01 PM EDT Narrative Resulting Agency Comment Spec In Lab Natalya Minaya MD HEMATOLOGY ORDERABLE S Performing Organization Address City/[facility]/ZIP Co de Phone Number [facility] [place] [address] * Phosphorus (04/06/2018 5:40 PM EDT) Phosphorus 3.3 2.5 - 4.5 mg/dL [facility] Blood specimen (specimen) 04/06/2018 5:40 PM EDT 04/06/2018 6:01 PM EDT Narrative Resulting Agency Comment Spec In Lab Lida Peter MD CHEMISTRY ORDERABLES Performing Organization Address [facility] Co de Phone Number [facility] [place] [address] * (ABNORMAL) Magnesium (04/06/2018 5:40 PM EDT) [facility] Magnesium 0.60(L) 0.69 - 1.07 mmol/L [facility] Blood specimen (specimen) 04/06/2018 5:40 PM EDT 04/06/2018 6:01 PM EDT Narrative Resulting Agency Comment Spec In Lab Lida Peter MD CHEMISTRY ORDERABLES Performing Organization Address [facility] Co de Phone Number [facility] [place] [address] * (ABNORMAL) Cardiac Enzymes (LEB/CGP) (04/06/2018 5:40 PM EDT) Troponin-T 0.20(H) 0.00 - 0.00 ng/mL [facility] Comment: The 99th percentile for Troponin T is less than 0.01 ng/mL, any detectable cTnT concentration using this assay should be considered elevated. According to the third universal definition of myocardial infarction the following criteria with a clinical presentation consistent with acute myocardial ischemia meets the diagnosis for a myocardial infarction (OR). Detection of a rise and/or fall of cTnT, with at least one value greater than the 99th percentile (> or = 0.01) and with at least one of the following ?? Symptoms of ischemia ?? New or presumed new significant [id number] wave (ST-T) changes or new left bundle [...] additional sample may be indicated. Reference: Third Temple Definition of Myocardial Infarction. Journal of the [place] College [employer] 2012;60:1581-98 Creatine Kinase 249(H) 0 - 200 unit/L [facility] Blood specimen (specimen) 04/06/2018 5:40 PM EDT 04/06/2018 6:01 PM EDT Narrative Resulting Agency Comment Spec In Lab Lida Peter MD CHEMISTRY ORDERABLES [facility] [place] [address] * (ABNORMAL) CMP w/fasting Glucose (04/06/2018 5:40 PM EDT) Glucose Fasting 140(H) 65 - 99 mg/dL [facility] Comment: ?Fasting* Glucose Interpretive Criteria [...] of Diabetes Mellitus, Position Statement from the [place] [employer]. ??Diabetes Care, Volume 33, Supplement 1, Jul 2009 Blood Urea Nitrogen 45(H) 10 - 20 mg/dL [facility] Creatinine 2.48(H) 0.80 - 1.50 mg/dL [facility] Sodium 145 135 - 145 mmol/L [facility] Potassium 5.2(H) 3.5 - 5.0 mmol/L [facility] Comment: Please note: ??Patients with WBC >100,000 may have falsely elevated Potassium levels. ??For accurate Potassium quantification in these patients send serum separator tube (gold top) for subsequent determinations. ??Contact the Clinical Chemistry Laboratory if there are any questions. Chloride 118(H) 98 - 107 mmol/L [facility] Carbon Dioxide 16(L) 22 - 31 mmol/L [facility] Anion Gap 11 5 - 15 mmol/L [facility] Calcium 6.7(Criti constance) 8.5 - 10.5 mg/dL [facility] Comment:Calcium not critical when adjusted for albumin concentration. Protein, Total 4.3(L) 6.1 - 8.0 gm/dL [facility] Albumin 2.3(L) 3.2 - 5.2 gm/dL [facility] Aspartate Aminotransferase 22 0 - 39 unit/L [facility] Alanine Aminotransferase 20 0 - 55 unit/L [facility] Alkaline Phosphatase 57 40 - 120 unit/L [facility] Bilirubin, Total 0.3 0.2 - 1.3 mg/dL [facility] Est Glomerular Filtration Rate 28(L) >=60 mL/min/1. 73 m?? [facility] Comment: The eGFR was calculated using the CKD-EPI equation. As with all creatinine based estimates of kidney function, eGFR values calculated with the CKD-EPI equation are not accurate in patients with acute kidney failure, extremes of body mass or the acutely ill. [email or web address] eGFR 32(L) >=60 mL/min/1. 73 m?? [facility] Comment: The eGFR was calculated using the CKD-EPI equation. As with all creatinine based estimates of kidney function, eGFR values calculated with the CKD-EPI equation are not accurate in patients with acute kidney failure, extremes of body mass or the acutely ill. [email or web address] Blood specimen (specimen) 04/06/2018 5:40 PM EDT 04/06/2018 6:01 PM EDT Narrative Resulting Agency Comment Spec In Lab Lida Peter MD CHEMISTRY ORDERABLES Performing Organization Address [facility] Co de Phone Number [facility] [place] [address] * APTT (04/06/2018 5:40 PM EDT) Partial Thromboplastin Time 30 25 - [address] [facility] Comment: The PTT is NOT appropriate for heparin monitoring. Use the Anti-Xa level for heparin monitoring (HEP UFH) or LMWH monitoring (HEP LMW). A PTT less than 37 seconds generally indicates adequate hemostasis. Blood specimen (specimen) 04/06/2018 5:40 PM EDT 04/06/2018 6:01 PM EDT Narrative Resulting Agency Comment Spec In Lab Lida Peter MD HEMATOLOGY ORDERABLE S Performing Organization Address [facility] de Phone Number [facility] [place] [address] * (ABNORMAL) Prothrombin Time (04/06/2018 5:40 PM EDT) Prothrombin Time 24.1(H) 9.4 - 12.[address] [facility] International Normalization Ratio 2.2 [facility] Comment: An INR <2.0 indicates [...] Lab Lida Peter MD HEMATOLOGY ORDERABLE S [facility] [place] [address] * (ABNORMAL) BLOOD GAS 2 ARTERIAL (04/06/2018 5:24 PM EDT) pH, Arterial 7.29(Crit ical) 7.35 - 7.45 [facility] Comment:Noted by instrument person. PCO2, Arterial 31(L) 35 - [address] [facility] PO2, Arterial 65(L) 85 - [address] [facility] Bicarbonate, Arterial 15.2(L) 20.0 - 26.0 mmol/L [facility] Base Excess, Arterial -11.8(L) -3.0 - 3.0 mmol/L [facility] Hgb Blood Gas 8.4(L) 13.7 - 16.5 gm/dL [facility] Oxyhemoglobin, Arterial 93.0(L) 94.0 - 97.0 % [facility] Carboxyhemoglo bin, Arterial 0.3 % [facility] Comment: Nonsmokers: 0.5-1.5% COHB Smokers: Variable, but usually less than 10% Toxic: 20-30% COHB Lethal: Greater than 60% COHB Methemoglobin, Arterial 0.9 <=1.5 % [facility] Na Whole Blood 140 135 - 145 mmol/L [facility] K Whole Blood 5.0 3.5 - 5.0 mmol/L [facility] Comment: Please note: Patients with WBC >100,000 may have falsely elevated Potassium levels. Contact the Clinical Chemistry Laboratory if there are any questions. ICa Whole Blood 1.03(L) 1.15 - 1.33 mmol/L [facility] Comment: Note: ??Total bilirubin higher than 20 mg/dL may lead to falsely low ionized calcium. CL Whole Blood 119(H) 98 - 107 mmol/L [facility] Gluc Whole Bld 141 65 - 199 mg/dL [facility] Comment:Diabetes: >=200 mg/d L plus symptoms. Lactate WB 2.4(H) 0.5 - 2.2 mmol/L [facility] FIO2 Art 50 % [facility] PF Ratio Art 130 [facility] Temp Art 34.8 Celsius [facility] Blood specimen (specimen) 04/06/2018 5:24 PM EDT 04/06/2018 5:24 PM EDT Lida Peter MD POINT OF CARE TEST O UMESH Performing Organization Address [facility] Co de Phone Number [facility] [place] [address] * POCT Glucose (04/06/2018 5:10 PM EDT) Glucose, POC 147 65 - 199 mg/dL [facility] Comment: Supplemental ranges: <140 mg/dL before meals <180 mg/dL all other times of the day Blood specimen (specimen) 04/06/2018 5:10 PM EDT 04/06/2018 5:10 PM EDT Lida Peter MD POINT OF CARE TEST O UMESH Performing Organization Address [facility]/ZIP Co de Phone Number [facility] [place] [address] * (ABNORMAL) BLOOD GAS 2 ARTERIAL (04/06/2018 4:04 PM EDT) pH, Arterial 7.27(Criti constance) 7.35 - 7.45 [facility] Comment:Noted by instrument person. PCO2, Arterial 34(L) 35 - [address] [facility] PO2, Arterial 152(H) 85 - [address] [facility] Bicarbonate, Arterial 15.2(L) 20.0 - 26.0 mmol/L [facility] Base Excess, Arterial -11.8(L) -3.0 - 3.0 mmol/L [facility] Hgb Blood Gas 8.1(L) 13.7 - 16.5 gm/dL [facility] Oxyhemoglobin, Arterial 97.7(H) 94.0 - 97.0 % [facility] Carboxyhemoglob in, Arterial 0.5 % [facility] Comment: Nonsmokers: 0.5-1.5% COHB Smokers: Variable, but usually less than 10% Toxic: 20-30% COHB Lethal: Greater than 60% COHB Methemoglobin, Arterial 0.3 <=1.5 % [facility] Na Whole Blood 140 135 - 145 mmol/L [facility] K Whole Blood 4.6 3.5 - 5.0 mmol/L [facility] Comment: Please note: Patients with WBC >100,000 may have falsely elevated Potassium levels. Contact the Clinical Chemistry Laboratory if there are any questions. ICa Whole Blood 1.01(L) 1.15 - 1.33 mmol/L [facility] Comment: Note: ??Total bilirubin higher than 20 mg/dL may lead to falsely low ionized calcium. CL Whole Blood 118(H) 98 - 107 mmol/L [facility] Gluc Whole Bld 137 65 - 199 mg/dL [facility] Comment:Diabetes: >=200 mg/d L plus symptoms. Lactate WB 3.1(H) 0.5 - 2.2 mmol/L [facility] Blood specimen (specimen) 04/06/2018 4:04 PM EDT 04/06/2018 4:04 PM EDT Lida Peter MD POINT OF CARE TEST O RDERABLES [facility] [place] [address] * Scan, Peripheral Blood (04/06/2018 3:53 PM EDT) Pathologist [facility] Plat estimate Decreased [facility] RBC Morphology Abnormal [facility] Ovalocytes 1-5 /HPF [facility] [place] Cells 1-5 /HPF [facility] Blood specimen (specimen) 04/06/2018 3:53 PM EDT 04/06/2018 4:05 PM EDT Narrative Resulting Agency Comment Spec In Lab Lida Peter MD HEMATOLOGY ORDERABLE S [facility] [place] [address] * (ABNORMAL) Differential, Automated (04/06/2018 3:53 PM EDT) Pathologist [facility] Neutrophil % 80.4 % [facility] Neutrophil Absolute 8.28(H) 1.70 - 6.10 x10(3)/mc L [facility] Lymph % 6.8 % [facility] Lymphocytes Abs 0.7(L) 0.9 - 3.2 x10(3)/mc L [facility] Monocyte % 11.9 % [facility] Monocyte Abs 1.2(H) 0.3 - 0.9 x10(3)/mc L [facility] Eos % 0.0 % [facility] Eosinophils Abs 0.0 0.0 - 0.4 x10(3)/mc L [facility] Basophil % 0.1 % [facility] Baso Absolute 0.0 0.0 - 0.1 x10(3)/mc L [facility] Immature Gran % 0.80 % [facility] Comment: Immature granulocytes(IG's)percentage and absolute count will include metamyelocytes, myelocytes, and promyelocytes. Blood smears from CBCs yielding IG's will be scanned manually for concordance. If this scan disagrees with the automated IG or if promyelocytes are noted, a manual differential will be performed. Immature Gran Absolute 0.08(H) 0.00 - 0.04 x10(3)/mc L [facility] Blood specimen (specimen) 04/06/2018 3:53 PM EDT 04/06/2018 4:05 PM EDT Narrative Resulting Agency Comment Spec In Lab Lida Peter MD HEMATOLOGY ORDERABLE S [facility] [place] [address] * (ABNORMAL) Hemogram (04/06/2018 3:53 PM EDT) White Blood Cell 10.3(H) 4.0 - 9.5 x10(3)/ L [facility] Red Blood Cell 2.53(L) 4.58 - 5.54 x10(6)/ L [facility] Hemoglobin 7.7(L) 13.7 - 16.5 gm/dL [facility] Comment: This result has been called to MISAEL GRANT by Evon Woodard on 04 06 2018 at 1633, and has been read back. Hematocrit 23.2(L) 40.5 - 48.5 % [facility] Comment: This result has been called to MISAEL GRANT by Evon Woodard on 04 06 2018 at 1633, and has been read back. Mean Cell Volume 91.7 82.9 - 93.[address] [facility] Mean Cell Hemoglobin 30.4 27.5 - 32.[address] [facility] Mean Cell Hemoglobin Concentration 33.2 32.0 - 35.7 gm/dL [facility] Platelet 96(L) 145 - 357 x10(3)/ L [facility] RDW Standard Deviation 53.3(H) 36.0 - 45.[address] [facility] RDW coefficient of variation 16.2(H) 11.4 - 13.8 % [facility] Mean Platelet Volume 9.0 7.6 - 12.[address] [facility] NRBC% auto 0.0 % [facility] NRBC Absolute 0.000 0.000 - 0.000 x10(3)/mc L [facility] Blood specimen (specimen) 04/06/2018 3:53 PM EDT 04/06/2018 4:05 PM EDT Narrative Resulting Agency Comment Spec In Lab Lida Peter MD HEMATOLOGY ORDERABLE S Performing Organization Address [facility] Co de Phone Number [facility] [place] [address] * APTT (04/06/2018 3:53 PM EDT) Partial Thromboplastin Time 30 25 - [address] [facility] Comment: The PTT is NOT appropriate for heparin monitoring. Use the Anti-Xa level for heparin monitoring (HEP UFH) or LMWH monitoring (HEP LMW). A PTT less than 37 seconds generally indicates adequate hemostasis. Blood specimen (specimen) 04/06/2018 3:53 PM EDT 04/06/2018 4:05 PM EDT Narrative Resulting Agency Comment Spec In Lab Lida Peter MD HEMATOLOGY ORDERABLE S Performing Organization Address [facility] de Phone Number [facility] [place] [address] * (ABNORMAL) Prothrombin Time (04/06/2018 3:53 PM EDT) Prothrombin Time 22.5(H) 9.4 - 12.[address] [facility] Comment:Called by: luisa, Read back by: donn thomas, Date/Time:04/06/18 16:20. International Normalization Ratio 2.0 [facility] Comment: An INR <2.0 indicates [...] Lab Lida Peter MD HEMATOLOGY ORDERABLE S [facility] [place] [address] * (ABNORMAL) BLOOD GAS 2 ARTERIAL (04/06/2018 3:41 PM EDT) pH, Arterial 7.22(Criti constance) 7.35 - 7.45 [facility] Comment:Noted by instrument person. PCO2, Arterial 39 35 - [address] [facility] PO2, Arterial 168(H) 85 - [address] [facility] Bicarbonate, Arterial 15.3(L) 20.0 - 26.0 mmol/L [facility] Base Excess, Arterial -12.4(L) -3.0 - 3.0 mmol/L [facility] Hgb Blood Gas 8.4(L) 13.7 - 16.5 gm/dL [facility] Oxyhemoglobin, Arterial 98.1(H) 94.0 - 97.0 % [facility] Carboxyhemoglob in, Arterial 0.2 % [facility] Comment: Nonsmokers: 0.5-1.5% COHB Smokers: Variable, but usually less than 10% Toxic: 20-30% COHB Lethal: Greater than 60% COHB Methemoglobin, Arterial 0.3 <=1.5 % [facility] Na Whole Blood 143 135 - 145 mmol/L [facility] K Whole Blood 4.6 3.5 - 5.0 mmol/L [facility] Comment: Please note: Patients with WBC >100,000 may have falsely elevated Potassium levels. Contact the Clinical Chemistry Laboratory if there are any questions. ICa Whole Blood 0.92(Criti constance) 1.15 - 1.33 mmol/L [facility] Comment: Noted by instrument person. Note: ??Total bilirubin higher than 20 mg/dL may lead to falsely low ionized calcium. CL Whole Blood 119(H) 98 - 107 mmol/L [facility] Gluc Whole Bld 158 65 - 199 mg/dL [facility] Comment:Diabetes: >=200 mg/d L plus symptoms. Lactate WB 3.2(H) 0.5 - 2.2 mmol/L [facility] Blood specimen (specimen) 04/06/2018 3:41 PM EDT 04/06/2018 3:41 PM EDT Lida Peter MD POINT OF CARE TEST O UMESH [facility] [place] [address] * (ABNORMAL) BLOOD GAS 2 ARTERIAL (04/06/2018 3:13 PM EDT) pH, Arterial 7.18(Criti constance) 7.35 - 7.45 [facility] Comment:Noted by instrument person. PCO2, Arterial 40 35 - [address] [facility] PO2, Arterial 228(H) 85 - [address] [facility] Bicarbonate, Arterial 14.8(L) 20.0 - 26.0 mmol/L [facility] Base Excess, Arterial -13.5(L) -3.0 - 3.0 mmol/L [facility] Hgb Blood Gas 9.4(L) 13.7 - 16.5 gm/dL [facility] Oxyhemoglobin, Arterial 98.3(H) 94.0 - 97.0 % [facility] Carboxyhemoglob in, Arterial 0.3 % [facility] Comment: Nonsmokers: 0.5-1.5% COHB Smokers: Variable, but usually less than 10% Toxic: 20-30% COHB Lethal: Greater than 60% COHB Methemoglobin, Arterial 0.3 <=1.5 % [facility] Na Whole Blood 141 135 - 145 mmol/L [facility] K Whole Blood 4.8 3.5 - 5.0 mmol/L [facility] Comment: Please note: Patients with WBC >100,000 may have falsely elevated Potassium levels. Contact the Clinical Chemistry Laboratory if there are any questions. ICa Whole Blood 1.12(L) 1.15 - 1.33 mmol/L [facility] Comment: Note: ??Total bilirubin higher than 20 mg/dL may lead to falsely low ionized calcium. CL Whole Blood 120(H) 98 - 107 mmol/L [facility] Gluc Whole Bld 125 65 - 199 mg/dL [facility] Comment:Diabetes: >=200 mg/d L plus symptoms. Lactate WB 2.8(H) 0.5 - 2.2 mmol/L [facility] Blood specimen (specimen) 04/06/2018 3:13 PM EDT 04/06/2018 3:13 PM EDT Lida Peter MD POINT OF CARE TEST O RDERABLES [facility] [place] [address] * (ABNORMAL) BLOOD GAS 2 ARTERIAL (04/06/2018 2:48 PM EDT) pH, Arterial 7.27(Criti constance) 7.35 - 7.45 [facility] Comment:Noted by instrument person. PCO2, Arterial 36 35 - [address] [facility] PO2, Arterial 379(H) 85 - [address] [facility] Bicarbonate, Arterial 16.1(L) 20.0 - 26.0 mmol/L [facility] Base Excess, Arterial -10.8(L) -3.0 - 3.0 mmol/L [facility] Hgb Blood Gas 9.7(L) 13.7 - 16.5 gm/dL [facility] Oxyhemoglobin, Arterial 98.5(H) 94.0 - 97.0 % [facility] Carboxyhemoglob in, Arterial 0.3 % [facility] Comment: Nonsmokers: 0.5-1.5% COHB Smokers: Variable, but usually less than 10% Toxic: 20-30% COHB Lethal: Greater than 60% COHB Methemoglobin, Arterial 0.3 <=1.5 % [facility] Na Whole Blood 142 135 - 145 mmol/L [facility] K Whole Blood 5.4(H) 3.5 - 5.0 mmol/L [facility] Comment: Please note: Patients with WBC >100,000 may have falsely elevated Potassium levels. Contact the Clinical Chemistry Laboratory if there are any questions. ICa Whole Blood 1.10(L) 1.15 - 1.33 mmol/L [facility] Comment: Note: ??Total bilirubin higher than 20 mg/dL may lead to falsely low ionized calcium. CL Whole Blood 117(H) 98 - 107 mmol/L [facility] Gluc Whole Bld 185 65 - 199 mg/dL [facility] Comment:Diabetes: >=200 mg/d L plus symptoms. Lactate WB 1.9 0.5 - 2.2 mmol/L [facility] Blood specimen (specimen) 04/06/2018 2:48 PM EDT 04/06/2018 2:48 PM EDT Lida Peter MD POINT OF CARE TEST O RDERAMARISOL Performing Organization Address City/State/[facility] Co de Phone Number [facility] [place] [address] * (ABNORMAL) BLOOD GAS 2 ARTERIAL (04/06/2018 2:46 PM EDT) pH, Arterial 7.27(Criti constance) 7.35 - 7.45 [facility] Comment:Noted by instrument person. PCO2, Arterial 36 35 - [address] [facility] PO2, Arterial Not Perf 85 - [address] [facility] Bicarbonate, Arterial 16.2(L) 20.0 - 26.0 mmol/L [facility] Base Excess, Arterial -10.7(L) -3.0 - 3.0 mmol/L [facility] Hgb Blood Gas 9.3(L) 13.7 - 16.5 gm/dL [facility] Oxyhemoglobin, Arterial 98.9(H) 94.0 - 97.0 % [facility] Carboxyhemoglob in, Arterial 0.3 % [facility] Comment: Nonsmokers: 0.5-1.5% COHB Smokers: Variable, but usually less than 10% Toxic: 20-30% COHB Lethal: Greater than 60% COHB Methemoglobin, Arterial 0.3 <=1.5 % [facility] Na Whole Blood 143 135 - 145 mmol/L [facility] K Whole Blood 5.5(H) 3.5 - 5.0 mmol/L [facility] Comment: Please note: Patients with WBC >100,000 may have falsely elevated Potassium levels. Contact the Clinical Chemistry Laboratory if there are any questions. ICa Whole Blood 1.09(L) 1.15 - 1.33 mmol/L [facility] Comment: Note: ??Total bilirubin higher than 20 mg/dL may lead to falsely low ionized calcium. CL Whole Blood 118(H) 98 - 107 mmol/L [facility] Gluc Whole Bld 191 65 - 199 mg/dL [facility] Comment:Diabetes: >=200 mg/d L plus symptoms. Lactate WB 1.8 0.5 - 2.2 mmol/L [facility] Blood specimen (specimen) 04/06/2018 2:46 PM EDT 04/06/2018 2:46 PM EDT Lida Peter MD POINT OF CARE TEST O RDERABLES [facility] [place] [address] * (ABNORMAL) BLOOD GAS 2 ARTERIAL (04/06/2018 2:16 PM EDT) pH, Arterial 7.29(Criti constance) 7.35 - 7.45 [facility] Comment:Noted by instrument person. PCO2, Arterial 38 35 - [address] [facility] PO2, Arterial 423(H) 85 - [address] [facility] Bicarbonate, Arterial 17.9(L) 20.0 - 26.0 mmol/L [facility] Base Excess, Arterial -8.6(L) -3.0 - 3.0 mmol/L [facility] Hgb Blood Gas 9.7(L) 13.7 - 16.5 gm/dL [facility] Oxyhemoglobin, Arterial 98.7(H) 94.0 - 97.0 % [facility] Carboxyhemoglob in, Arterial 0.3 % [facility] Comment: Nonsmokers: 0.5-1.5% COHB Smokers: Variable, but usually less than 10% Toxic: 20-30% COHB Lethal: Greater than 60% COHB Methemoglobin, Arterial 0.3 <=1.5 % [facility] Na Whole Blood 137 135 - 145 mmol/L [facility] K Whole Blood 6.5(Critic al) 3.5 - 5.0 mmol/L [facility] Comment: Noted by instrument person. Please note: Patients with WBC >100,000 may have falsely elevated Potassium levels. Contact the Clinical Chemistry Laboratory if there are any questions. ICa Whole Blood 1.06(L) 1.15 - 1.33 mmol/L [facility] Comment: Note: ??Total bilirubin higher than 20 mg/dL may lead to falsely low ionized calcium. CL Whole Blood 117(H) 98 - 107 mmol/L [facility] Gluc Whole Bld 261(H) 65 - 199 mg/dL [facility] Comment:Diabetes: >=200 mg/d L plus symptoms. Lactate WB 1.1 0.5 - 2.2 mmol/L [facility] Blood specimen (specimen) 04/06/2018 2:16 PM EDT 04/06/2018 2:16 PM EDT Lida Peter MD POINT OF CARE TEST O RDERABLES Performing Organization Address [facility] de Phone Number [facility] [place] [address] * Anaerobic Culture (04/06/2018 2:15 PM EDT) Anaerobic Culture No anaerobic organisms isolated [facility] Fluid specimen (specimen) 04/06/2018 2:15 PM EDT 04/06/2018 2:34 PM EDT Comment:CULTURE LEFT ARM WOU ND Narrative Resulting Agency Comment Spec In Lab Lida Peter MD MICROBIOLOGY - GENER AL ORDERABLES Performing Organization Address [facility] Phone Number [facility] [place] [address] * Body Fluid Culture, Aerobic (04/06/2018 2:15 PM EDT) Body Fluid Culture Few normal cutaneous shaina [facility] Gram Stain Few Neutrophils seen No microorganisms seen. [facility] Fluid specimen (specimen) 04/06/2018 2:15 PM EDT 04/06/2018 2:34 PM EDT Comment:CULTURE LEFT ARM WOU ND Narrative Resulting Agency Comment Spec In Lab Lida Peter MD MICROBIOLOGY - GENER AL ORDERABLES Performing Organization Address [facility] de Phone Number [facility] [place] [address] * (ABNORMAL) BLOOD GAS 2 ARTERIAL (04/06/2018 1:53 PM EDT) pH, Arterial 7.24(Criti constance) 7.35 - 7.45 [facility] Comment:Noted by instrument person. PCO2, Arterial 38 35 - [address] [facility] PO2, Arterial 388(H) 85 - [address] [facility] Bicarbonate, Arterial 15.7(L) 20.0 - 26.0 mmol/L [facility] Base Excess, Arterial -11.8(L) -3.0 - 3.0 mmol/L [facility] Hgb Blood Gas 10.8(L) 13.7 - 16.5 gm/dL [facility] Oxyhemoglobin, Arterial 98.8(H) 94.0 - 97.0 % [facility] Carboxyhemoglob in, Arterial 0.3 % [facility] Comment: Nonsmokers: 0.5-1.5% COHB Smokers: Variable, but usually less than 10% Toxic: 20-30% COHB Lethal: Greater than 60% COHB Methemoglobin, Arterial 0.3 <=1.5 % [facility] Na Whole Blood 141 135 - 145 mmol/L [facility] K Whole Blood 6.7(Critic al) 3.5 - 5.0 mmol/L [facility] Comment: Noted by instrument person. Please note: Patients with WBC >100,000 may have falsely elevated Potassium levels. Contact the Clinical Chemistry Laboratory if there are any questions. ICa Whole Blood 1.00(L) 1.15 - 1.33 mmol/L [facility] Comment: Note: ??Total bilirubin higher than 20 mg/dL may lead to falsely low ionized calcium. CL Whole Blood 117(H) 98 - 107 mmol/L [facility] Gluc Whole Bld 219(H) 65 - 199 mg/dL [facility] Comment:Diabetes: >=200 mg/d L plus symptoms. Lactate WB 1.2 0.5 - 2.2 mmol/L [facility] Blood specimen (specimen) 04/06/2018 1:53 PM EDT 04/06/2018 1:53 PM EDT Lida Peter MD POINT OF CARE TEST O RDERABLES [facility] [place] [address] * Request For 2nd Read CT Head [...] RBC, Urine 21(H) 0 - 3 /HPF [facility] WBC, Urine 8(H) 0 - 3 /HPF [facility] Bacteria, Urine Occasional (A) None /HPF [facility] Squamous Epithelial Cells Raw Data, Urine 1 <=4 /HPF [facility] Granular Casts, Urine 1(H) <=0 /LPF [facility] Urine specimen obtained by clean catch procedure (specimen) 04/06/2018 1:25 PM EDT 04/06/2018 1:30 PM EDT Narrative Resulting Agency Comment Spec In Lab Fabian Burkett MD URINE ORDERABLES [facility] [place] [address] * Rapid Drug Screen w/o Confirmation, Urine (04/06/2018 1:25 PM EDT) Barbiturates Screen, Urine None Detected None Detected [facility] Comment: The barbiturate screen detects [...] Benzodiazepines Screen, Urine None Detected None Detected [facility] Comment: The benzodiazepines screen detects [...] Cocaine Screen, Urine None Detected None Detected [facility] Comment: The cocaine metabolites screen detects benzoylecgonine (Cocaine Metabolite) at concentrations >150 ng/mL. A ? Presumptive Positive? result indicates that the screening result was positive but has not yet been confirmed by a highly-specific method. As with any screen, occasional false positive results from cross-reacting substances may occur. Not for Medico-Legal Purposes. Methadone Metabolites Screen, Urine None Detected None Detected [facility] Comment: The methadone metabolite screen detects EDDP (major methadone metabolite) at concentrations >100 ng/mL. A ? Presumptive Positive? result indicates that the screening result was positive but has not yet been confirmed by a highly-specific method. As with any screen, occasional false positive results from cross-reacting substances may occur. Not for Medico-Legal Purposes. Opiate Screen, Urine None Detected None Detected [facility] Comment: The opiates screen detects [...] Cannabinoid Screen, Urine None Detected None Detected [facility] Comment: The marijuana metabolites screen detects the THC metabolite (60-wex-9-carboxy-delta 9-THC) at concentrations >20 ng/mL. A ? Presumptive Positive? result indicates that the screening result was positive but has not yet been confirmed by a highly-specific method. As with any screen, occasional false positive results from cross-reacting substances may occur. Not for Medico-Legal Purposes. Oxycodone Screen, Urine None Detected None Detected [facility] Comment: The oxycodone screen detects oxycodone and oxymorphone at concentrations >100 ng/mL. A ? Presumptive Positive? result indicates that the screening result was positive but has not yet been confirmed by a highly-specific method. As with any screen, occasional false positive results from cross-reacting substances may occur. Not for Medico-Legal Purposes. Buprenorphine Screen, Urine None Detected None Detected [facility] Comment: The buprenorphine screen detects buprenorphine at concentrations >5 ng/mL. A ? Presumptive Positive? result indicates that the screening result was positive but has not yet been confirmed by a highly-specific method. As with any screen, occasional false positive results from cross-reacting substances may occur. Not for Medico-Legal Purposes. Fentanyl Screen, Urine None Detected None Detected [facility] Comment: The fentanyl screen detects fentanyl at concentrations >2 ng/mL. A ? Presumptive Positive? result indicates that the screening result was positive but has not yet been confirmed by a highly-specific method. As with any screen, occasional false positive results from cross-reacting substances may occur. Not for Medico-Legal Purposes. Tricyclics Screen, Urine None Detected None Detected [facility] Comment: The tricyclics screen detects [...] Ethanol Screen, Urine None Detected None Detected [facility] Comment:This urine ethanol a ssay detects ethanol at concentrations >/= 100 mg/L. Amphetamines Screen, Urine None Detected None Detected [facility] Comment: The amphetamine screen detects d-amphetamine and d-methamphetamine at concentrations >300 ng/mL. A ? Presumptive Positive? result indicates that the screening result was positive but has not yet been confirmed by a highly-specific method. As with any screen, occasional false positive results from cross-reacting substances may occur. Not for Medico-Legal Purposes. Adulterants Screen, Urine None Detected None Detected [facility] Comment: No adulteration or dilution of this urine sample was detected. All urine samples submitted for urine drugs of abuse analysis are tested for creatinine concentration, pH, and for the presence of oxidants, nitrites, and chromate. Urine specimen (specimen) 04/06/2018 1:25 PM EDT 04/06/2018 1:30 PM EDT Narrative Resulting Agency Comment Spec In Lab Fabian Burkett MD CHEMISTRY ORDERABLES [facility] [place] [address] * (ABNORMAL) Urinalysis with reflex Culture (04/06/2018 1:25 PM EDT) Glucose, Urine Dipstick 50(A) Negative mg/dL [facility] Protein, [...] [facility] Blood, Urine Dipstick Small(A) Negative mg/dL [facility] Ketone, Urine Dipstick Negative Negative mg/dL [facility] Nitrite, Urine Dipstick Negative Negative [facility] Leukocytes, Urine Dipstick Negative Negative [facility] Appearance, Urine Dipstick Hazy(A) Clear [facility] Specific [place] Urine Automated 1.023 1.002 - 1.030 [facility] Color, Urine Dipstick Yellow Yellow [facility] Reflex to Culture No [facility] Urine specimen obtained by clean catch procedure (specimen) 04/06/2018 1:25 PM EDT 04/06/2018 1:30 PM EDT Narrative Resulting Agency Comment Spec In Lab Erwin Hernandez MD URINE ORDERABLES [facility] [place] [address] * Rapid Drug Screen, Urine (RAUL Request) (04/06/2018 1:25 PM EDT) RAUL Conf Requested No [facility] Comment: Collection date/time has been modified to: 13:25:00. ??Previous collection date/time: 13:03:00. Corrected from No [NA] on 04/06/18 01:32 by Crystal Mueller RAUL Requested See Comment [facility] Comment: Refer to Rapid Drug Screen w/o Confirmation, Urine for results. Collection date/time has been modified to: 13:25:00. ??Previous collection date/time: 13:03:00. Corrected from See Comment [NA] on 04/06/18 01:32 by Crystal Mueller Urine specimen (specimen) 04/06/2018 1:25 PM EDT 04/06/2018 1:30 PM EDT Narrative Resulting Agency Comment Spec In Lab Erwin Hernandez MD URINE ORDERABLES Performing Organization Address [facility]/ZIP Co de Phone Number [facility] [place] [address] * CK (04/06/2018 1:15 PM EDT) Creatine Kinase 168 0 - 200 unit/L [facility] Blood specimen (specimen) Venous Draw / Unknown 04/06/2018 1:15 PM EDT 04/06/2018 2:22 PM EDT Narrative Resulting Agency Comment Spec In Lab Kavon Rob MD CHEMISTRY ORDERABLES Performing Organization Address [facility] Co de Phone Number [facility] [place] [address] * Scan, Peripheral Blood (04/06/2018 1:15 PM EDT) Plat estimate Normal [facility] RBC Morphology Abnormal [facility] Ovalocytes 1-5 /HPF [facility] Yovanny Cells 1-5 /HPF [facility] Blood specimen (specimen) 04/06/2018 1:15 PM EDT 04/06/2018 1:24 PM EDT Narrative Resulting Agency Comment Spec In Lab Fabian Burkett MD HEMATOLOGY ORDERABLE S Performing Organization Address City/[facility]/ZIP Co de Phone Number [facility] [place] [address] * ABORH Recheck Status (04/06/2018 1:15 PM EDT) ABORH Type Recheck Completed [facility] Blood specimen (specimen) 04/06/2018 1:15 PM EDT 04/06/2018 1:20 PM EDT Narrative Resulting Agency Comment Spec In Lab Fabian Burkett MD BLOOD BANK LAB ORDER KELLY [facility] [place] [address] * Blue Tube HOLD (04/06/2018 1:15 PM EDT) Blue Hold Sample in lab. [facility] Blood specimen (specimen) Venous Draw / Unknown 04/06/2018 1:15 PM EDT 04/06/2018 1:26 PM EDT Fabian Burkett MD HEMATOLOGY ORDERABLE S [facility] [place] [address] * Gold Tube HOLD (04/06/2018 1:15 PM EDT) Gold Hold Sample in lab. [facility] Blood specimen (specimen) Venous Draw / Unknown 04/06/2018 1:15 PM EDT 04/06/2018 1:25 PM EDT Fabian Burkett MD CHEMISTRY ORDERABLES [facility] [place] [address] * Blue Tube HOLD (04/06/2018 1:15 PM EDT) Blue Hold Sample in lab. [facility] Blood specimen (specimen) Venous Draw / Unknown 04/06/2018 1:15 PM EDT 04/06/2018 1:26 PM EDT Fabian Burkett MD HEMATOLOGY ORDERABLE S [facility] [place] [address] * (ABNORMAL) Differential, Automated (04/06/2018 1:15 PM EDT) Neutrophil % 78.7 % [facility] Neutrophil Absolute 12.22(H) 1.70 - 6.10 x10(3)/mc L [facility] Lymph % 10.3 % [facility] Lymphocytes Abs 1.6 0.9 - 3.2 x10(3)/[facility] Monocyte % 9.8 % [facility] Monocyte Abs 1.5(H) 0.3 - 0.9 x10(3)/ L [facility] Eos % 0.1 % [facility] Eosinophils Abs 0.0 0.0 - 0.4 x10(3)/ L [facility] Basophil % 0.2 % [facility] Baso Absolute 0.0 0.0 - 0.1 x10(3)/ L [facility] Immature Gran % 0.90 % [facility] Comment: Immature granulocytes(IG's)percentage and absolute count will include metamyelocytes, myelocytes, and promyelocytes. Blood smears from CBCs yielding IG's will be scanned manually for concordance. If this scan disagrees with the automated IG or if promyelocytes are noted, a manual differential will be performed. Immature Gran Absolute 0.14(H) 0.00 - 0.04 x10(3)/ L [facility] Blood specimen (specimen) 04/06/2018 1:15 PM EDT 04/06/2018 1:24 PM EDT Narrative Resulting Agency Comment Spec In Lab Fabian Burkett MD HEMATOLOGY ORDERABLE S [facility] [place] [address] * (ABNORMAL) Hemogram (04/06/2018 1:15 PM EDT) White Blood Cell 15.5(H) 4.0 - 9.5 x10(3)/mc L [facility] Red Blood Cell 3.80(L) 4.58 - 5.54 x10(6)/mc L [facility] Hemoglobin 11.5(L) 13.7 - 16.5 gm/dL [facility] Hematocrit 35.2(L) 40.5 - 48.5 % [facility] Mean Cell Volume 92.6 82.9 - 93.[address] [facility] Mean Cell Hemoglobin 30.3 27.5 - 32.[address] [facility] Mean Cell Hemoglobin Concentration 32.7 32.0 - 35.7 gm/dL [facility] Platelet 145 145 - 357 x10(3)/mc L [facility] RDW Standard Deviation 53.2(H) 36.0 - 45.[address] [facility] RDW coefficient of variation 15.9(H) 11.4 - 13.8 % [facility] Mean Platelet Volume 9.0 7.6 - 12.[address] [facility] NRBC% auto 0.0 % [facility] NRBC Absolute 0.000 0.000 - 0.000 x10(3)/mc L [facility] Blood specimen (specimen) 04/06/2018 1:15 PM EDT 04/06/2018 1:24 PM EDT Narrative Resulting Agency Comment Spec In Lab Fabian Burkett MD HEMATOLOGY ORDERABLE S [facility] [place] [address] * Antibody screen (04/06/2018 1:15 PM EDT) Pathologist [facility] Ab Screen Interp Negative [facility] Expires at [id number] on: 04/09/2018 [facility] Blood specimen (specimen) 04/06/2018 1:15 PM EDT 04/06/2018 1:20 PM EDT Narrative Resulting Agency Comment Spec In Lab Fabian Burkett MD BLOOD BANK LAB ORDER KELLY [facility] [place] [address] * ABO/Rh Typing (04/06/2018 1:15 PM EDT) [facility] ABORH Type A Pos [facility] Comment: 04/06/2018 15:10 ??CHASDM ABO/Rh determined (Acc# [id number]) to be A pos. Blood specimen (specimen) 04/06/2018 1:15 PM EDT 04/06/2018 1:20 PM EDT Narrative Resulting Agency Comment Spec In Lab Fabian Burkett MD BLOOD BANK LAB ORDER KELLY Performing Organization Address City/[facility]/ZIP Co de Phone Number [facility] [place] [address] * Fibrinogen (04/06/2018 1:15 PM EDT) [facility] Fibrinogen 255 200 - 393 mg/dL [facility] Comment: A fibrinogen level >100 mg/dL is adequate for hemostasis in most patients without underlying bleeding disorders. Blood specimen (specimen) 04/06/2018 1:15 PM EDT 04/06/2018 1:24 PM EDT Narrative Resulting Agency Comment Spec In Lab Erwin Hernandez MD HEMATOLOGY ORDERAB LES Performing Organization Address City/[facility]/ZIP Co de Phone Number [facility] [place] [address] * Ethanol Level (04/06/2018 1:15 PM EDT) Ethanol <100 <=99 mg/L [facility] Comment: Greater than 800 mg/L (0.08%) should be considered intoxicated. 3400 to 4500 mg/L (0.34 - 0.45%) is considered severe intoxication. Greater than 5500 mg/L (0.55%) is usually fatal. Blood specimen (specimen) 04/06/2018 1:15 PM EDT 04/06/2018 1:24 PM EDT Narrative Resulting Agency Comment Spec In Lab Erwin Hernandez MD CHEMISTRY ORDERABL ES Performing Organization Address [facility] Co de Phone Number [facility] [place] [address] * APTT (04/06/2018 1:15 PM EDT) Partial Thromboplastin Time 31 25 - [address] [facility] Comment: The PTT is NOT appropriate for heparin monitoring. Use the Anti-Xa level for heparin monitoring (HEP UFH) or LMWH monitoring (HEP LMW). A PTT less than 37 seconds generally indicates adequate hemostasis. Blood specimen (specimen) 04/06/2018 1:15 PM EDT 04/06/2018 1:24 PM EDT Narrative Resulting Agency Comment Spec In Lab Erwin Hernandez MD HEMATOLOGY ORDERAB LES Performing Organization Address [facility] Co de Phone Number [facility] [place] [address] * (ABNORMAL) Prothrombin Time (04/06/2018 1:15 PM EDT) Prothrombin Time 29.1(H) 9.4 - 12.[address] [facility] International Normalization Ratio 2.6 [facility] Comment: An INR <2.0 indicates [...] Lab Erwin Hernandez MD HEMATOLOGY ORDERAB LES [facility] [place] [address] * (ABNORMAL) Basic Metabolic Panel (non-fasting) (04/06/2018 1:15 PM EDT) Glucose 219(H) 65 - 199 mg/dL [facility] Comment:Diabetes: >=200 mg/d L plus symptoms Blood Urea Nitrogen 39(H) 10 - 20 mg/dL [facility] Creatinine 2.01(H) 0.80 - 1.50 mg/dL [facility] Sodium 140 135 - 145 mmol/L [facility] Potassium 5.2(H) 3.5 - 5.0 mmol/L [facility] Comment: Please note: ??Patients with WBC >100,000 may have falsely elevated Potassium levels. ??For accurate Potassium quantification in these patients send serum separator tube (gold top) for subsequent determinations. ??Contact the Clinical Chemistry Laboratory if there are any questions. Chloride 116(H) 98 - 107 mmol/L [facility] Carbon Dioxide 15(L) 22 - 31 mmol/L [facility] Anion Gap 9 5 - 15 mmol/L [facility] Calcium 4.9(Criti constance) 8.5 - 10.5 mg/dL [facility] Comment:Called by: lorelei, Read back by: misael luong_, Date/Time:04/06/18 14:04. Est Glomerular Filtration Rate 36(L) >=60 mL/min/1. 73 m?? [facility] Comment: The eGFR was calculated using the CKD-EPI equation. As with all creatinine based estimates of kidney function, eGFR values calculated with the CKD-EPI equation are not accurate in patients with acute kidney failure, extremes of body mass or the acutely ill. http://[employer]/DHnkf eGFR 42(L) >=60 mL/min/1. 73 m?? [facility] Comment: The eGFR was calculated using the CKD-EPI equation. As with all creatinine based estimates of kidney function, eGFR values calculated with the CKD-EPI equation are not accurate in patients with acute kidney failure, extremes of body mass or the acutely ill. [email or web address]/[facility] ALTUSnkf Blood specimen (specimen) 04/06/2018 1:15 PM EDT 04/06/2018 1:24 PM EDT Narrative Resulting Agency Comment Spec In Lab Erwin Hernandez MD CHEMISTRY ORDERABL ES [facility] [place] [id number] * XR Chest AP and Pelvis AP [...] pH, Arterial 7.14(Criti constance) 7.35 - 7.45 [facility] Comment:Noted by instrument person. PCO2, Arterial 51(H) 35 - [address] [facility] PO2, Arterial 38(Critica l) 85 - [address] [facility] Comment:Noted by instrument person. Bicarbonate, Arterial 16.7(L) 20.0 - 26.0 mmol/L [facility] Base Excess, Arterial -12.4(L) -3.0 - 3.0 mmol/L [facility] Hgb Blood Gas 12.3(L) 13.7 - 16.5 gm/dL [facility] Oxyhemoglobin, Arterial 69.1(L) 94.0 - 97.0 % [facility] Carboxyhemoglob in, Arterial 0.3 % [facility] Comment: Nonsmokers: 0.5-1.5% COHB Smokers: Variable, but usually less than 10% Toxic: 20-30% COHB Lethal: Greater than 60% COHB Methemoglobin, Arterial 0.4 <=1.5 % [facility] Na Whole Blood 137 135 - 145 mmol/L [facility] K Whole Blood 6.3(Critic al) 3.5 - 5.0 mmol/L [facility] Comment: Noted by instrument person. Please note: Patients with WBC >100,000 may have falsely elevated Potassium levels. Contact the Clinical Chemistry Laboratory if there are any questions. ICa Whole Blood 1.01(L) 1.15 - 1.33 mmol/L [facility] Comment: Note: ??Total bilirubin higher than 20 mg/dL may lead to falsely low ionized calcium. CL Whole Blood 112(H) 98 - 107 mmol/L [facility] Gluc Whole Bld 258(H) 65 - 199 mg/dL [facility] Comment:Diabetes: >=200 mg/d L plus symptoms. Lactate WB 2.0 0.5 - 2.2 mmol/L [facility] Blood specimen (specimen) 04/06/2018 1:14 PM EDT 04/06/2018 1:14 PM EDT Erwin Hernandez MD POINT OF CARE TEST ORDERABLES [facility] [place] [address] * Prepare RBC (04/06/2018 1:05 PM EDT) Dispensed? Yes [facility] Blood specimen (specimen) 04/06/2018 1:05 PM EDT 04/06/2018 1:03 PM EDT Erwin Hernandez MD BLOOD BANK PRODUCT ORDERABLES Performing Organization Address City/[facility]/ZIP Co de Phone Number [facility] [place] [address] * Film Library- Storage Only CT Chest Abdomen Pelvis (04/06/2018 12:05 AM EDT) Narrative [facility] - 04/06/2018 2:07 PM EDT This exam is for storage only and is auto-finalizing. Fabian Burkett MD [facility] FILM LIBRARY ORD ERABLES Performing Organization Address [facility] de Phone Number [place], [place] * SCAN DOC: IMPLANTABLE DEVICES (04/06/2018 12:00 AM EDT) Narrative 04/06/2018 12:00 AM EDT Ordered by an unspecified provider. Scanning Provider MEDIA MGR SCAN EXT O RDR/RSLT * Film Library- Storage Only CT Head And Spine (04/06/2018 12:00 AM EDT) Narrative [facility] - 04/06/2018 1:32 PM EDT This exam is for storage only and is auto-finalizing. Fabian Burkett MD [facility] FILM LIBRARY ORD ERABLES Performing Organization Address [facility] de Phone Number [place], [place] * SCAN DOC: LAB (04/06/2018 12:00 AM EDT) Narrative 04/06/2018 12:00 AM EDT Ordered by an unspecified provider. Scanning Provider MEDIA MGR SCAN EXT O RDR/RSLT * SCAN DOC: SENIOR ASSOCIATE (04/06/2018 12:00 AM EDT) Anatomical Region Laterality [...] 250 mg, Oral, DAILY, First dose on Mariza 04/07/18 at 2100, Until Discontinued, Routine Given [...] Naz Robbins RN)1130 (Given - Provider: Lalitha Mack RN)1733 (Given - Provider: Lalitha Mack, SAVANNA) 0000 (Not Given - Provider: Torri Angelo RN - Reason: Patient/family refused)0622 (Given - Provider: Torri Angelo RN)1200 (Not Given - Provider: Domi Rodriguez RN - Reason: Patient/family refused)1800 (Not Given - Provider: Domi Rodriguez, RN - Reason: Patient/family refused)2313 (Given - Provider: Margarita Blevins RN) 0605 (Given - Provider: Margarita Blevins RN)1200 (Due) allopurinol (ZYLOPRIM) tablet 150 mg 150 mg, Oral, DAILY, First dose on Wed04/07/18 at 0900, Until Discontinued, Routine 0841 (Given - Provider: Torri Adame RN) 0900 (Given - Provider: Domi Rodriguez, SAVANNA) 0924 (Given - Provider: Danny Quispe RN) [...] RN)2103 (Given - Provider: Torri Angelo, SAVANNA) 09 (Given - Provider: Domi Rodriguez, SAVANNA)2100 (Given - Provider: Margarita Blevins, SAVANNA) 0929 (Given - Provider: Danny Quispe, SAVANNA) hydrALAZINE (APRESOLINE) tablet 50 mg 50 mg, Oral, 3 TIMES DAILY, First dose (after last modification) on Wed04/21/18 at 0900, Until Discontinued, Take with Food, Routine 0907 (Given - Provider: Lalitha Mack, RN)1434 (Given - Provider: Lalitha Mack, RN)205 (Given - Provider: Torri Angelo RN) 0900 (Given - Provider: Domi Rodriguez, SAVANNA)1455 (Given - Provider: Domi Rodriguez, RN)203 (Given - Provider: Margarita Blevins, SAVANNA) 0932 (Given - Provider: Danny Quispe, SAVANNA) levETIRAcetam (KEPPRA) tablet 250 mg 250 mg, Oral, DAILY, First dose on Wed04/07/18 at 2100, Until Discontinued, Routine 210 (Given - Provider: Torri Angelo, SAVANNA) 210 (Given - Provider: Margarita Blevins, SAVANNA) [...] Angelo, SAVANNA) 0605 (Given - Provider: Margarita Blevins, SAVANNA) metoprolol tartrate (LOPRESSOR) tablet 50 mg 50 [...] Domi Rodriguez, SAVANNA)211 (Given - Provider: Margarita Blevins, SAVANNA) 06 (Given - Provider: Margarita Blevins, SAVANNA) metroNIDAZOLE (FLAGYL) tablet 500 mg 500 mg, Oral, 2 TIMES DAILY, First dose on Wed04/26/18 at 0900, Until Discontinued, Routine, Indication for (Active or Suspected): Anaerobic infection-Skin/Skin Structure 0841 (Given - Provider: Torri Adame, SAVANNA)210 (Given - Provider: Torri Angelo RN) 0859 (Given - Provider: Domi Rodriguez, SAVANNA)203 (Given - Provider: Margarita Blevins, SAVANNA) 0923 (Given - Provider: Danny Quispe, SAVANNA) mycophenolate (CELLCEPT) capsule 250 mg 250 mg, Oral, 2 TIMES DAILY, First dose on Wed04/07/18 at 0700, Until Discontinued, DO NOT CRUSH OR OPEN Administer to patient on empty stomach (1 hour before or two hours after a meal)., Routine 06 (Given - Provider: Naz Robbins RN)195 (Given - Provider: Torri Angelo RN) 06 (Given - Provider: Torri Angelo RN)184 (Given - Provider: Domi Rodriguez, SAVANNA) 06 (Given - Provider: Margarita Blevins, SAVANNA) oxyCODONE (ROXICODONE) immediate release tablet 5 mg (COMPLETED) 5 mg, Oral, ONCE, 1 dose, On Wed05/02/18 at 0500, Routine 0503 (Given - Provider: Naz Robbins, SAVANNA) oxyCODONE (ROXICODONE) immediate release tablet 5 mg (COMPLETED) 5 mg, Oral, ONCE, 1 dose, On Wed05/02/18 at 0530, This for for the vac removal this morning on . Please give now., Routine 0519 (Given - Provider: Naz Robbins, SAVANNA) pantoprazole (PROTONIX) tablet 20 mg 20 mg, Oral, 2 TIMES DAILY, First dose on Wed04/07/18 at 0900, Until Discontinued, DO NOT CRUSH OR OPEN 0842 (Given - Provider: Torri Adame RN)2101 (Given - Provider: Torri Angelo, SAVANNA) 901 (Given - Provider: Domi Rodriguez, RN)2036 (Given - Provider: Margarita Blevins, RN) 09 (Given - Provider: Danny Quispe, SAVANNA) polyethylene glycol (MIRALAX) packet 17 g 17 g, Oral, DAILY, First dose on Wed04/19/18 at 0900, Until Discontinued, Routine 906 (Given - Provider: Lalitha Mack, SAVANNA) 900 (Given - Provider: Domi Rodriguez, SAVANNA) 920 (Given - Provider: Danny Quispe, SAVANNA) senna-docusate (PERICOLACE) 8.6-50 mg per tablet 2 tablet 2 tablet, Oral, 2 TIMES DAILY, First dose on Wed04/19/18 at 0900, Until Discontinued, Routine 09 (Not Given - Provider: Lalitha Mack RN - Reason: Order parameters not met - Comment: +BM 05/01 - soft)2100 (Given - Provider: Torri Angelo, SAVANNA) 900 (Given - Provider: Domi Rodriguez, SAVANNA)2037 (Given - Provider: Margarita Blevins, SAVANNA) 927 (Given - Provider: Danny Quispe, SAVANNA) sodium bicarbonate tablet 650 mg 650 mg, Oral, 3 TIMES DAILY, First dose on Wed04/12/18 at 1745, Until Discontinued, Routine 09 (Given - Provider: Lalitha Mack RN)1435 (Given - Provider: Lalitha Mack RN)210 (Given - Provider: Torri Angelo, SAVANNA) 0859 (Given - Provider: Domi Rodriguez RN)1455 (Given - Provider: Domi Rodriguez RN)2036 (Given - Provider: Margarita Blevins, SAVANNA) 0922 (Given - Provider: Danny Quispe, RN) sodium chloride 0.9 % flush 5 mL 5 mL, Intravenous, EVERY 12 HOURS, First dose on Wed04/06/18 at 1800, Until Discontinued, Routine 0848 (Given - Provider: Torri Adame RN)2103 (Not Given - Provider: Torri Angelo RN - Reason: See comment - Comment: Infusing) 0902 (Given - Provider: Domi Rodriguez RN)2037 (Given [...] 0843 (Given - Provider: Torri Adame RN) 0900 (Given - Provider: Domi Rodriguez RN) 0922 (Given - Provider: Danny Quispe [...] Routine documented in this encounter Care Teams Power Switchboard Operator Relationship Specialty Start Date End Date Carroll Garcia DO [address] [place] [address] PCP - General 09/23/11 10/20/22 documented as of this encounter
--- OUTSIDE RECORDS SUMMARY | 2024-04-22 11:05 | XMS_ITS | Encounter Summary ---
Author Organization [facility] Address [facility] [place] [address] Care Team Providers Care Equipment Sales Specialist Name Role Phone Alfredo, Carroll MIX Primary Care Provider [phone] Reason for Visit * Auth/Cert Specialty Diagnoses [...] Expiration Date Visits Re quested Visits Authorized [id number] 1 1 Encounter Details Date Type Department Care Team (Latest Contact Info) Description 04/08/2018 3:39 PM EDT - 04/08/2018 11:59 PM EDT Hospital En[place] [phone] Discharge Disposition: Home Social History Tobacco Use [...] on filedocumented in this encounter Care Teams Equipment Sales Specialist Relationship Specialty Start Date End Date Carroll Fuentes DO [address] [place] [address] PCP - General 09/23/11 10/20/22 documented as of this encounter
--- OUTSIDE RECORDS SUMMARY | 2024-04-22 11:05 | XMS_ITS | Encounter Summary ---
Author Organization [facility] Address [facility] [place] [address] Care Team Providers Care Major Gifts Director Name Role Phone AlfredoCarroll allison Primary Care Provider Encounter Details Date Type Department Care Team (Latest Contact Info) Description 04/06/2018 6:08 PM EDT - 04/06/2018 11:59 PM EDT Hospital Encounter Radiology Library at [facility] [place] [phone] Discharge Disposition: Home Social History Tobacco Use [...] times daily. 180 tablet 3 12/29/2017 05/04/2018 metroNIDAZOLE (METROCREAM) 0.75 % CreamIndications:Carolina cea Apply topically to face twice daily as needed. 45 g 11/29/2017 04/07/2018 metoprolol tartrate (LOPRESSOR) 50 mg Tablet Take [...] Diagnosis Comments REQUEST FOR 2ND READ CT CHEST ABDOMEN PELVIS Routine 04/06/2018 6:08 PM EDT documented in this encounter Results * Request For 2nd Read CT Chest [...] the chest, abdomen, and pelvis performed at [facility] on 04/06/2018. 5 mm and 1 [...] Spleen: Normal. Kidneys/Adrenals: The RIGHT and LEFT sycuan kidneys are severely atrophic. The patient status [...] Osseous structures: No significant findings. Procedure Note Walt Lin MD - 04/07/2018 EXAMINATION: REQUEST FOR 2ND READ CT CHEST ABDOMEN PELVIS CLINICAL HISTORY: Found down, trauma; What Modality is the exam? CT Scan;Body Part (please add comments as necessary): CT CAP; I believe areinterpretation of this exam may alter care of Patient. Yes TECHNIQUE: CTA of the chest, abdomen, and pelvis performed at an [facility] on 04/06/2018. 5 mm and 1 [...] Spleen: Normal. Kidneys/Adrenals: The RIGHT and LEFT sycuan kidneys are severely atrophic.The patient status post [...] on filedocumented in this encounter Care Teams Major Gifts Director Relationship Specialty Start Date End Date Carroll Fuentes DO [address] [place] [address] PCP - General 09/23/11 10/20/22 documented as of this encounter
--- OUTSIDE RECORDS SUMMARY | 2024-04-22 11:05 | XMS_ITS | Encounter Summary ---
Author Organization [facility] Address [facility] [place] [address] Care Team Providers Care Affiliate Manager Name Role Phone AlfredoCarroll allison Primary Care Provider [phone] Encounter Details Date Type Department Care Team (Late st Contact Info) Description 04/08/2018 11:59 PM EDT Anesthesia Event [place] [address] Kvng Chauhan MD [facility] DR [place] [address] Anesthesia Record Procedure Summary Procedure Name Responsible Anesthesiologist Anesthesia Start Time Anesthesia Stop Time DEBRIDEMENT SKIN, SUBCU, MUSCLE, UPPER EXTREMITY (WRVU 2.7) (Left) Events No events on file. Meds * Agents No agents on file. * Blood No blood administrations on file. Lines, Drains, and Airways Type Details Placement Removal (RETIRED) Tunneled Central Line - Double Lumen 12/24/22; 1501; subclavian vein, left; (14.5 Serbian); Carroll Diaz mD 12/24/22 1501 by Anup Kruse, RN Incision 12/24/22; 1502; Left ; throat; non-laparascopic puncture 12/24/22 1502 by Anup Kruse, RN documented in this encounter Social History [...] of this encounter OR Notes * Anesthesia Preprocedure Evaluation - Kvng Chauhan MD - 04/07/2018 6:29 PM EDT Pre-Anesthesia Evaluation for: Adama Ram a 57 y.o. male. Procedure(s): DEBRIDEMENT SKIN, SUBCU, MUSCLE, UPPER EXTREMITY (WRVU 2.7) Patient Active Problem List Diagnosis ??? Hemorrhagic [...] performed by Miguel Angel Moreno MD at [facility] MAIN OR ??? PRO DECOMPRESS FOREARM, BRACH ART EXPLOR Left 04/06/2018 FASCIOTOMY, FOREARM, WITH BRACHIAL ARTERY EXPLORATION (WRVU 8.41) performed by Lida Peter MDat [facility] OR ??? PRO DIRECT REPAIR RUPTURED ANEURYSM, AXILLO-BRACHIAL ARM INCIS Left 04/06/2018 @REPAIR, RUPTURED AXILLARY OR BRACHIAL ARTERY ANEURYSM BY ARM INCISION (WRVU *) performed by Lida Peter MD at [facility] OR ??? PRO EXC PAROTD, TOTAL, [...] at [facility] OR ??? PRO REBL VES GRAFT, [...] UPPER EXTREMITY performed by SABRINA SANCHEZ at [facility] MAIN OR ??? PRO REVISE MEDIAN N/CARPAL TUNNEL SURG Left 04/06/2018 MEDIAN NERVE DECOMPRESSION (CARPAL TUNNEL RELEASE) (WRVU 4.97) performed by Lida Peter MD [facility] MAIN OR ? ? PRO SPLIT GRFT, HEAD, FAC, HAND, FEET <100SQCM N/A 02/20/2016 SPLIT THICKNESS SKIN SPLIT GRAFT,100SQ CM OR LESS, NECK performed by Miguel Angel Moreno MD at [facility] MAIN OR ??? PRO UPPER GI ENDOSCOPY, BIOPSY N/A 05/13/2017 EGD WITH BIOPSY (WRVU 2.49) performed by Aditya Barrera MD at [facility] ENDOSCOPY ??? PRO VASCULAR SURGERY PROCEDURE UNLIST Left 11/20/2015 LIGATION\REPAIR AV FISTULA performed by Camilo Ireland MD at [facility] MAIN OR ??? PRO VASCULAR SURGERY PROCEDURE UNLIST Left 11/20/2015 EXCISION VEIN FROM HAND performed by Camilo Ireland MD at [facility] MAIN OR ??? US RENAL TRANSPLANT [...] been reviewed. Physical Exam: Most Recent Vitals: 04/07/18 1800 BP: 124/81 Pulse: 79 Resp: 11 Temp: SpO2: 90% Body mass index is 28.91 kg/(m^2). Height: 178 cm (5' 10.08) Weight: 91.6 kg (201 lb 15.1 oz) Airway Assessment: Mallampati: (Unable to Assess) Cardiovascular Assessment: Rate: abnormal PE comment: bradycardia Pulmonary Assessment: PE comment: Stable sats on RA Dental Assessment: [facility] Assessment: IV access: Peripheral line Anesthesia Plan: ASA 4 general, with a(n) intravenous induction 57 y.o. male with severe bleeding of LUE fistula and PEA arrest with ROSC achieved in the field. Now s/p repair and fasciotomy, scheduled for debridement with Dr. Welsh. Presentation complicated by hyperkalemia, most recent 5.4. 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 Allergies reviewed Labs reviewed Exercise tolerance: unable to assess EKG: sinus bradycardia Echocardiogram: none on file NPO Status: --- Anesthetic Plan: GA w/ LMA w/ ETT as backup Kvng Chauhan MD 04/07/2018 Region - Other Informed Consent: PAT Staff Note documented in this encounter Plan of Treatment Not on file documented as of this encounter Visit Diagnoses Not on filedocumented in this encounter Care Teams Affiliate Manager Relationship Specialty Start Date End Date Carroll Fuentes DO [address] [place] [address] PCP - General 09/23/11 10/20/22 documented as of this encounter
--- OUTSIDE RECORDS SUMMARY | 2024-04-22 11:06 | XMS_ITS | Encounter Summary ---
Author Organization [facility] Address [facility] [place] [address] Care Team Providers Care Assistant Produce Manager Name Role Phone AlfredoCarroll allison Primary Care Provider Encounter Details Date Type Department Care Team (Latest Contact Info) Description 04/06/2018 1:41 PM EDT - 04/06/2018 6:07 PM EDT Hospital Encounter Radiology Library at [facility] [place] [id number] Discharge Disposition: Home Social History Tobacco Use [...] AND SPINE STAT 04/06/2018 1:41 PM EDT documented in this encounter Results [...] left at the C4-5 level. Procedure Note Damián Vargas MD - 04/06/2018 EXAMINATION: REQUEST FOR [...] Hernandez MD IMG OUTSIDE INTERP RETATION ORDERABLES documented in this encounter Visit Diagnoses Not on filedocumented in this encounter Care Teams Assistant Produce Manager Relationship Specialty Start Date End Date Carroll Fuentes DO [address] [place] [address] [address] PCP - General 09/23/11 10/20/22 documented as of this encounter
--- OUTSIDE RECORDS SUMMARY | 2024-04-22 11:06 | XMS_ITS | Encounter Summary ---
Author Organization [facility] [place] [address] Care Team Providers Care Neuroscience Specialist Name Role Phone Carroll Fuentes DO Primary Care Provider Encounter Details Date Type Department Care Team (Late st Contact Info) Description 04/06/2018 Abstract [place] [address] Nilda Maravilla, RN Social History Tobacco Use Types Packs/Day [...] on filedocumented in this encounter Care Teams Neuroscience Specialist Relationship Specialty Start Date End Date Carroll Fuentes DO [address] [place] [address] [address] [place] [address] PCP - General 09/23/11 10/20/22 documented as of this encounter
--- OUTSIDE RECORDS SUMMARY | 2024-04-22 11:06 | XMS_ITS | Encounter Summary ---
Author Organization [facility] Address [facility] [place] [address] Care Team Providers Care Rn School Name Role Phone Alfredo Carroll MIX Primary Care Provider [phone] Reason for Visit * Auth/Cert Specialty Diagnoses [...] Expiration Date Visits Re quested Visits Authorized [id number] 1 1 Encounter Details Date Type Department Care Team (Late st Contact Info) Description 04/06/2018 1:29 PM EDT Anesthesia [place] [id number] Paxton Longoria MD [facility] ANESTHESIOLOGY [place] [address] Sabrina Santiago MD [facility] ANESTHESIOLOGY [place] [address] Anesthesia Record Procedure Summary Procedure Name Responsible Anesthesiologist Anesthesia Start Time Anesthesia Stop Time @REPAIR, RUPTURED AXILLARY OR BRACHIAL ARTERY ANEURYSM BY ARM INCISION (WRVU 23.23) (Left: Arm Upper) Paxton Longoria MD 04/06/18 1329 04/06/18 1720 Events Date Time Event Comment 04/06/2018 1329 AN Verify 1329 Start 1329 An Start Data 1340 Anesthesia Ready 1441 Quick Note Started lower b jeremy reyes, running fluids through warmer. 1446 Vascular Clamp ON 1451 Vascular Clamp OFF 1559 1656 an stop data 1719 Recovery or ICU Handoff Randa ent care was transferred to the destination unit staff after review of the patient's medical history, current anesthetic/surgical status and plan, according to the Provider Handoff Checklist. 1720 Stop Meds Name Total Midazolam 2 mg Rocuronium 100 mg PHENYLephrine 480 mcg ePHEDrine 50 mg ceFAZolin 2 g Insulin Regular Human 20 Units Dextrose 50 % 100 mL EPINEPHrine INF 261 mcg PHENYLephrine INF 1,680 mcg Sodium Chloride 0.9% 3,800 mL Sodium Chloride 0.9% 1,500 mL * Agents Name O2 Air N2O Sevoflurane (et) * Blood No blood administrations on file. Lines, Drains, and Airways Type Details Placement Removal Incision 02/05/16; face; 04/19/18; 92502/05/16 0000 by Jennifer Rueda RN 04/19/18925 by Karuna Nagel RN Incision 02/20/16; neck; vertical; 04/19/18; 92602/20/16 0000 by Dee Dee Servin RN 04/19/18926 by Karuna Nagel RN Incision 02/20/16; thigh; oth er (see comments) (skin graft donor site); 04/19/18; 92602/20/16 0000 by Dee Dee Servin RN 04/19/18 09 by Karuna Nagel RN Incision 05/31/17; 1145; abdomen; laparoscopic puncture (port sites for left kidney ); 04/19/18; 92605/31/17 1145 by Leslie Gomez RN 04/19/18926 by Karuna Nagel RN Ureteral Catheter 04/06/18; drainage b ag to dependent drainage; 04/06/18; 2254 (Not a ureteral catheter) 04/06/18 0000 by Selma Vieira RN 04/06/18 2254 by Evelin Callejas RN Urethral Catheter 04/06/18; Acute urin shellie retention, Close urine output monitoring: critically ill patient; indwelling catheter with core temperature probe; urethral catheter removed; 04/12/18; 1011 04/06/18 0000 by Evelin Callejas RN 04/12/18 1011 by Yady Smith ETT ETT Type: Cuffed; ET T Size: 7.5 mm; ETT Placement Verified By: Capnometry; Secured at Teeth: 24 cm; Removal Date: 04/06/18; Removal Time: 17204/06/18 1344 by Kanu Laughlin, INTEGRATION AIDE 04/06/18 1721 by Paxton Longoria MD Incision 04/06/18; 1345; arm; vertical; LDA not present upon assessment; 04/19/18; 0951 04/06/18 1345 by Bhargav Gomez RN 04/19/18 0951 by Karuna Nagel RN Arterial Line 04/06/18; 1451; radi al artery, right; 20 gauge; Kennedy JONES; Sterile Prep, Sterile Gloves; 04/07/18; 1630 04/06/18 1451 by Rachelle Steen 04/07/18 1630 by Padmini Terry RN Incision 04/06/18; 1550; wris t; vertical; (duplicate); 04/18/18; 1314 04/06/18 1550 by Bhargav Gomez RN 04/18/18 1314 by Crystal Yan RN (RETIRED) Peripheral IV Line - Single Lumen 04/06/18; 1723; cephalic vein (lateral side of arm), right; ldre-jtb-bijgen catheter system; 16 gauge; 04/08/18; 1208 04/06/18 1723 by Erwin Ibarra CRNA 04/08/18 1208 by Veto Pearl RN documented in this encounter Social History [...] OR Notes * Anesthesia Postprocedure Evaluation - Paxton Longoria MD - 04/06/2018 5:22 PM EDT [facility] Department of Anesthesiology Post-procedure Note Patient: Adama Ram Procedure Summary Date Anesthesia Start Anesthesia Stop Room / Location 04/06/18 1329 1720 [facility] OR 24 / [facility] MAIN OR Procedure Diagnosis Surgeon Responsible Provider @REPAIR, RUPTURED AXILLARY OR BRACHIAL ARTERY ANEURYSM BY ARM INCISION (WRVU *) (Left Arm Upper); FASCIOTOMY, FOREARM, WITH BRACHIAL ARTERY EXPLORATION (WRVU 8.41) (Left Arm Lower); MEDIAN NERVE DECOMPRESSION (CARPAL TUNNEL RELEASE) (WRVU 4.97) (Left Hand); REPAIR BLOOD VESSEL WITH GRAFT OTHER THANVEIN, UPPER EXTREMITY (WRVU 15.83) (Left Arm); (MSURG) CARPAL TUNNEL (WRVU 4.82) (Left ) (bleeding AVF) Lida Peter MD; Silviano Sparks MD Bertrand, Marc L, MD All Anesthesia Providers: Anesthesiologist: Paxton Longoria MD Dog Food Dough Mixer: Rachelle Steen MD Most Recent Vitals: 04/06/18 1718 Resp: 18 SpO2: 97% Pain Patient Location: ICU Level of Consciousness: Sedated (Pharmacologic/Intentional) Pain Management: Satisfactory Analgesia PONV: None Cardiovascular Status: Hypotension (received treatment) Respiratory Status: Intubated/Ventilated Postoperative Fluid Status: Intravascular EUvolemia Possible Anesthetic Complications: NONE apparent at time of evaluation Final Primary Anesthesia Type: General (The anesthetic type performed was the same as planned.) Comments: * Anesthesia Preprocedure Evaluation - Paxton Longoria MD - 04/06/2018 3:52 PM EDT Pre-Anesthesia Evaluation for: Adama Ram a 57 y.o. male. Procedure(s): @REPAIR, RUPTURED AXILLARY OR BRACHIAL ARTERY ANEURYSM BY ARM INCISION (WRVU *) Patient Active Problem List Diagnosis ??? Primary papillary carcinoma of left kidney ??? Renal mass ??? Gastrointestinal hemorrhage ??? Bradycardia ??? Left renal mass ??? TRISTIAN (acute kidney injury) ??? Weight loss ??? CKD (chronic kidney disease) stage 4, GFR 15-29 ml/min ??? 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 watermaster current use of immunosuppressive drug ??? H/O [...] performed by Miguel Angel Moreno MD at [facility] MAIN OR ??? PRO EXC PAROTD, TOTAL, UNILAT RAD NECK Left 02/05/2016 @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, TOTAL, WITH UNILATERAL RADICAL NECK DISSECTION performed by Miguel Angel Moreno MD at [facility] MAIN OR ??? PRO EXC SKIN MALIG 3.1-4CM FACE, FACIAL Left 02/05/2016 EXC MALIGNANT LESION, 3.1 TO 4.0CM, FACE performed by Miguel Angel Moreno MD at [facility] MAIN OR ? ? PRO EXC SKIN MALIG >4CM TRUNK, ARM, LEG 04/19/2012 EXC MALIGNANT LESION, MICHAEL > 4.0CM, TRUNK performed by SABRINA SANCHEZ at [facility] MAIN OR ??? PRO LAP, RADICAL NEPHRECTOMY Left 05/31/2017 @LAPAROSCOPY, RADICAL NEPHRECTOMY (WRVU 25.06) performed by Jax Mills MD at [facility] MAIN OR ??? PRO REPAIR INTERMEDIATE S/A/T/E 2.6-7.5 CM 04/19/2012 REPAIR INTERMEDIATE WOUND, (NO HANDS OR FEET) 2.6 TO 7.5CM, UPPER EXTREMITY performed by SABRINA SANCHEZ at [facility] MAIN OR ? ? PRO SPLIT GRFT, HEAD, FAC, HAND, FEET <100SQCM N/A 02/20/2016 SPLIT THICKNESS SKIN SPLIT GRAFT,100SQ CM OR LESS, NECK performed by Miguel Angel Moreno MD at [facility] MAIN OR ??? PRO UPPER GI ENDOSCOPY, BIOPSY N/A 05/13/2017 EGD WITH BIOPSY (VU 2.49) performed by Aditya Barrera MD at [facility] ENDOSCOPY ??? PRO VASCULAR SURGERY PROCEDURE UNLIST Left 11/20/2015 LIGATION\REPAIR AV FISTULA performed by Camilo Ireland MD at [facility] MAIN OR ??? PRO VASCULAR SURGERY PROCEDURE UNLIST Left 11/20/2015 EXCISION VEIN FROM HAND performed by Camilo Ireland MD at [facility] MAIN OR ??? US RENAL TRANSPLANT BIOPSY 12/31/2010 Social History Substance Use Topics ??? Smoking status: Former Smoker Packs/day: 0.25 Years: 1.50 Types: Cigarettes Quit date: 12/03/2000 ??? Smokeless tobacco: Former User Quit date: 04/14/2001 ??? Alcohol use No History Drug Use No Comment: havent in years/1995 Allergies Allergen Reactions ??? Benazepril Hcl ??? Codeine Other (See Comments) Patient does not know reaction ??? Hydrochlorothiazide ??? Pollen Extracts Sneezing/runny nose Medications: MAR and/or home medications have been reviewed. Physical Exam: There were no vitals filed for this visit. There is no height or weight on file to calculate BMI. Airway Assessment: Mallampati: (Unable to Assess) ETT and Phili Collar in Situ on arrival in O.R. Cardiovascular Assessment: Pulmonary Assessment: Dental Assessment: Misc Assessment: IV access: Peripheral line Other exam findings: 16 g IV right hand. Runs well. IO left leg in situ. Runs well with pressure Anesthesia Plan: ASA 4 emergent general, with a(n) intravenous induction 57 y.o. male w hx of IgA nephropathy s/p donor renal transplant 2002 (on tacrolimus and cellcept) complicated by delayed graft function and recurrent IgA nephropathy and Prograf toxicity, laparoscopic L radical nephrectomy May 2017 for papillary carcinoma, HTN, epilepsy, and prior TBI who presents to OR s/p LUE bleeding with PEA arrest. Patient not laney;luated by anesthesiology prior to emergent arrival in the O.R. Elevated K+ and INR noted on labs. Unclear if any steps yet taken to address hyperkalemia. Peaked/elevated T-waves noted on ECG in O.R with stat K+ 6.7. Plan: GA/ETT (in situ). Fluid resuscitatron required as well as aggressive steps to address hyperkalemia (glucose/insulin + HCO3 + CACL2) prior to tourniquet removal. Plan for ICU post-op. Consent not obtained due to emergent nature of the case. Region - Other Informed Consent: [facility] Staff Note documented in this encounter Plan of Treatment Not on file documented as of this encounter Visit Diagnoses Not on filedocumented in this encounter Administered Medications Inactive Administered Medications - up to 3 most recent administrations Medication Order MAR Action Action Date Dose Rate Site ceFAZolin (ANCEF) 1g in dextrose 5% 50mL PRN, Starting on Wed04/06/18 at 1348, Until Wed04/06/18 at 1721, Administer over 30 Minutes, Anesthesia Intra-op Given 04/06/2018 1:48 PM EDT 2 g dextrose 50% intravenous solution PRN, Starting on Wed04/06/18 at 1407, Until Wed04/06/18 at 1721, Low blood sugar, Anesthesia Intra-op, Routine Given 04/06/2018 4:15 PM EDT 25 mLs Given 04/06/2018 3:18 PM EDT 25 mLs Given 04/06/2018 2:32 PM EDT 25 mLs ePHEDrine 5 mg/mL multi-dose injection PRN, Starting on Wed04/06/18 at 1409, Until Wed04/06/18 at 1721, Anesthesia Intra-op, Routine Given 04/06/2018 2:50 PM EDT 25 mg Given 04/06/2018 2:41 PM EDT 10 mg Given 04/06/2018 2:09 PM EDT 15 mg EPINEPHrine 2 mg in dextrose 5% 250 mL infusion CONTINUOUS PRN, Starting on Wed04/06/18 at 1446, Until Wed04/06/18 at 1721, Anesthesia Intra-op Rate/Dose Change 04/06/2018 4:16 PM EDT 1 mcg/min 7.5 mL/hr Rate/Dose Change 04/06/2018 4:03 PM EDT 2 mcg/min 15 mL/h r Rate/Dose Change 04/06/2018 2:56 PM EDT 3 mcg/min 22.5 mL /hr insulin regular human VIAL injection PRN, Starting on Wed04/06/18 at 1407, Until Wed04/06/18 at 1721, Anesthesia Intra-op, Routine Given 04/06/2018 2:30 PM EDT 10 Units Given 04/06/2018 2:07 PM EDT 10 Units midazolam (PF) (VERSED) 1 mg/mL multi-dose injection PRN, Starting on Wed04/06/18 at 1330, Until Wed04/06/18 at 1721, Sleep, Anesthesia Intra-op, Routine Given 04/06/2018 1:30 PM EDT 2 mg PHENYLephrine (MILLI-SYNEPHRINE) 20 mg in sodium chloride 250 mL (standard ADULT & Pedi greater than 20kg) infusion CONTINUOUS PRN, Starting on Wed04/06/18 at 1556, Until Wed04/06/18 at 1721, Anesthesia Intra-op, Routine New Bag 04/06/2018 3:56 PM EDT 20 mcg/min 15 mL/hr PHENYLephrine in NS (PF) (MILLI-SYNEPHRINE) 0.8 mg/10 mL (80 mcg/mL) multi-dose injection Syrg PRN, Starting on Wed04/06/18 at 1529, Until Wed04/06/18 at 1721, Anesthesia Intra-op, Routine Given 04/06/2018 3:56 PM EDT 160 mcg Given 04/06/2018 3:35 PM EDT 240 mcg Given 04/06/2018 3:29 PM EDT 80 mcg rocuronium (ZEMURON) multi-dose injection PRN, Starting on Wed04/06/18 at 1333, Until Wed04/06/18 at 1721, Anesthesia Intra-op, Routine Given 04/06/2018 2:38 PM EDT 50 mg Given 04/06/2018 1:33 PM EDT 50 mg sodium chloride 0.9% infusion CONTINUOUS PRN, Starting on Wed04/06/18 at 1340, Until Wed04/06/18 at 1721, Anesthesia Intra-op New Bag 04/06/2018 4:21 PM E DT New Bag 04/06/2018 4:20 PM EDT New Bag 04/06/2018 4:01 PM EDT sodium chloride 0.9% infusion CONTINUOUS PRN, Starting on Wed04/06/18 at 1340, Until Wed04/06/18 at 1721, Anesthesia Intra-op New Bag 04/06/2018 2:30 PM E DT New Bag 04/06/2018 1:40 PM EDT documented in this encounter Care Teams Rn School Relationship Specialty Start Date End Date Carroll Fuentes DO [address] [place] [address] PCP - General 09/23/11 10/20/22 documented as of this encounter
--- OUTSIDE RECORDS SUMMARY | 2024-04-22 11:06 | XMS_ITS | Encounter Summary ---
Author Organization [facility] Address [facility] [place] [address] Care Team Providers Care Director Of Preclinical Research Name Role Phone AlfredoCarroll allison Primary Care Provider Encounter Details Date Type Department Care Team (Latest Contact Info) Description 04/06/2018 12:05 AM EDT - 04/06/2018 12:57 PM EDT Hospital Encounter Radiology Library [place] [id number] Discharge Disposition: Home Social History Tobacco Use [...] Diagnosis Comments FILM LIBRARY STORAGE ONLY CT CHEST ABDOMEN PELVIS Routine 04/06/2018 12:05 AM EDT documented in this encounter Results * Film Library- Storage Only CT Chest Abdomen Pelvis (04/06/2018 12:05 AM EDT) Narrative MIGUEL ÁNGEL - 04/06/2018 2:07 PM EDT This exam is for storage only and is auto-finalizing. Fabian Burkett MD [place] FILM LIBRARY ORD ERABLES [place], [place] documented in this encounter Visit Diagnoses Not on filedocumented in this encounter Care Teams Director Of Preclinical Research Relationship Specialty Start Date End Date Carroll Fuentes DO [address] [place] [address] PCP - General 09/23/11 10/20/22 documented as of this encounter
--- OUTSIDE RECORDS SUMMARY | 2024-04-22 11:06 | XMS_ITS | Encounter Summary ---
Author Organization [facility] Address [facility] [place] [address] Care Team Providers Care Stroboscope Operator Name Role Phone AlfredoCarroll allison Primary Care Provider [phone] Encounter Details Date Type Department Care Team (Latest Contact Info) Description 04/06/2018 - 04/06/2018 12:04 AM EDT Hospital Encounter Radiology Library at [facility] [place] [address] Discharge Disposition: Home Social History Tobacco Use [...] And Spine (04/06/2018 12:00 AM EDT) Narrative CHETAN DEL ROSARIO - 04/06/2018 1:32 PM EDT This exam is for storage only and is auto-finalizing. Fabian Burkett MD IMG FILM LIBRARY ORD ERABLES CHETAN DEL ROSARIO [place], [place] documented in this encounter Visit Diagnoses Not on filedocumented in this encounter Care Teams Stroboscope Operator Relationship Specialty Start Date End Date Carroll Fuentes DO [address] [place] [address] [address] [place] [address] PCP - General 09/23/11 10/20/22 documented as of this encounter
--- OUTSIDE RECORDS SUMMARY | 2024-04-22 11:08 | XMS_ITS | Encounter Summary ---
[place] [address] Care Team Providers Care Acoustical Tile Patternmaker Name Role Phone Carroll Fuentes DO Primary Care Provider [phone] Encounter Details Date Type Department Care Team (Late st Contact Info) Description 11/05/2017 Orders Only [place] [address] Crystal Brown CMA Social History Tobacco Use Types Packs/Day Years [...] as of this encounter Progress Notes * Crystal Brown CMA - 11/05/2017 4:40 PM EDT Standing orders faxed to [facility] at [phone] documented in this encounter Plan of Treatment Not on file documented as of this encounter Visit Diagnoses Not on filedocumented in this encounter Care Teams Acoustical Tile Patternmaker Relationship Specialty Start Date End Date Carroll Fuentes DO [address] [place] [address] PCP - General 09/23/11 10/20/22 documented as of this encounter
--- OUTSIDE RECORDS SUMMARY | 2024-04-22 11:08 | XMS_ITS | Encounter Summary ---
[place] [address] Care Team Providers Care Makeup Instructor Name Role Phone Carroll Fuentes DO Primary Care Provider Reason for Visit * Reason Onset Date Comments Medication Refill 03/01/2018 Encounter Details Date Type Department Care Team (Late st Contact Info) Description 03/01/2018 Refill Solid [place] [address] Crystal Brown, [facility] Social History Tobacco Use Types Packs/Day Years [...] on filedocumented in this encounter Care Teams Makeup Instructor Relationship Specialty Start Date End Date Carroll Fuentes DO [address] [place] [address] PCP - General 09/23/11 10/20/22 documented as of this encounter
--- OUTSIDE RECORDS SUMMARY | 2024-04-22 11:08 | XMS_ITS | Encounter Summary ---
Author Organization Formerly [facility] Address [facility] [place] [address] Care Team Providers Care Fountain Roller Assembler Name Role Phone AlfredoCarroll allison Primary Care Provider [phone] Encounter Details Date Type Department Care Team (Late st Contact Info) Description 08/24/2017 Telephone [place] [id number] Misael Segundo, RN Social History Tobacco Use Types Packs/Day [...] encounter Miscellaneous Notes * Telephone Encounter - Misael Segundo, RN - 08/24/2017 2:25 PM EST Commission Auditor called to speak with pt regarding his medication question. Pt said he has already spoken with someone, and confirmed that he is to continue taking Protonix 20mg BID (he has 40 mg tablets that he is cutting in half). Dr. Hawkins has been informed. A new prescription has been sent for the 20 mg BID. Pt wanted to use his 40 mg tablets prior to filling the new prescription. Pt has no further questions or concerns at this time. Misael Segundo RN-BSN Post Clod Puller [facility] Solid Organ Transplant * Telephone Encounter - Misael Segundo RN - 08/24/2017 2:25 PM EST ----- Message from Krysta Perea sent at 08/23/2017 1:25 PM EST ----- Contact: Patient is having hernia outpt surgery at [facility] on . He wants to go over his med list with anurse. List he has re pantoprozole doesn't match what he is taking; says a nurse from here called and change the dose. Please call him. documented in this encounter Plan of Treatment Not on file documented as of this encounter Visit Diagnoses Not on filedocumented in this encounter Care Teams Fountain Roller Assembler Relationship Specialty Start Date End Date Carroll Fuentes DO [address] [place] [address] PCP - General 09/23/11 10/20/22 documented as of this encounter
--- OUTSIDE RECORDS SUMMARY | 2024-04-22 11:08 | XMS_ITS | Encounter Summary ---
[place] [address] Care Team Providers Care Stock Lifter Name Role Phone Carroll Fuentes DO Primary Care Provider [phone] Reason for Visit * Reason Onset Date Comments Medication Refill 07/23/2017 Encounter Details Date Type Department Care Team (Late st Contact Info) Description 07/23/2017 Refill [place] [address] Crystal Brown, [facility] Social History Tobacco Use Types Packs/Day [...] on filedocumented in this encounter Care Teams Stock Lifter Relationship Specialty Start Date End Date Carroll Fuentes DO [address] [place] [address] PCP - General 09/23/11 10/20/22 documented as of this encounter
--- OUTSIDE RECORDS SUMMARY | 2024-04-22 11:08 | XMS_ITS | Encounter Summary ---
Author Organization [facility] Address [facility] [place] [address] Care Team Providers Care Transfer Car Operator Name Role Phone Carroll Fuentes DO Primary Care Provider Encounter Details Date Type Department Care Team (Late st Contact Info) Description 09/23/2017 [place] [address] Jax Mills MD [facility] [place] [address] Social History Tobacco Use Types Packs/Day Years [...] on filedocumented in this encounter Care Teams Transfer Car Operator Relationship Specialty Start Date End Date Carroll Fuentes DO [address] [place] [address] PCP - General 09/23/11 10/20/22 documented as of this encounter
--- OUTSIDE RECORDS SUMMARY | 2024-04-22 11:08 | XMS_ITS | Encounter Summary ---
Author Organization [facility] [place] [address] Care Team Providers Care Paint Roller Cover Machine Setter Name Role Phone AlfredoCarroll geiger Primary Care Provider [phone] Encounter Details Date Type Department Care Team (Latest Contact Info) Description 09/23/2017 11:00 AM EDT Laboratory Appointment Lab [address] [place] [address] S/P kidney transplant Social History Tobacco Use [...] Name Priority Date/Time Associated Diagnosis Comments HEMOGRAM STAT 09/23/2017 11:01 AM EDT S/P kidney transplant DIFFERENTIAL, AUTOMATED STAT 09/23/2017 11:01 AM EDT S/P kidney transplant TACROLIMUS LEVEL STAT 09/23/2017 11:0 1 AM EDT S/P kidney transplant CBC (WITH DIFF) STAT 09/23/2017 11:01 AM EDT S/P kidney transplant URIC ACID STAT 09/23/2017 11:01 AM EDT S/P kidney transplant PHOSPHORUS STAT 09/23/2017 11:01 AM EDT S/P kidney transplant MAGNESIUM STAT 09/23/2017 11:01 AM EDT S/P kidney transplant CHOLESTEROL, TOTAL STAT 09/23/2017 11 :01 AM EDT S/P kidney transplant COMPREHENSIVE METABOLIC PANEL STAT 09/23/2017 11:01 AM EDT S/P kidney transplant URINALYSIS MICROSCOPIC EXAM STAT 09/23/2017 11:00 AM EDT PROTEIN/CREATININE RATIO, URINE STAT 09/23/2017 11:00 AM EDT S/P kidney transplant URINALYSIS WITH REFLEX CULTURE STAT 09/23/2017 11:00 AM EDT S/P kidney transplant documented in this encounter Results * Differential, Automated (09/23/2017 11:01 AM EDT) Neutrophil % 62.3 % [facility] Neutrophil Absolute 3.07 1.70 - 6.10 x10(3)/[facility] LAB[facility] Lymph % 21.3 % [facility] Lymphocytes Abs 1.0 0.9 - 3.2 x10(3)/[facility] LAB[facility]ORY Monocyte % 9.7 % [facility] Monocyte Abs 0.5 0.3 - 0.9 x10(3)/[facility] LAB[facility] Eos % 5.7 % [facility] Eosinophils Abs 0.3 0.0 - 0.4 x10(3)/[facility] Basophil % 0.8 % [facility] Baso Absolute 0.0 0.0 - 0.1 x10(3)/[facility] LABORATORY Immature Gran % 0.20 % [facility] Comment: Immature granulocytes(IG's)percentage and absolute count will include metamyelocytes, myelocytes, and promyelocytes. Blood smears from CBCs yielding IG's will be scanned manually for concordance. If this scan disagrees with the automated IG or if promyelocytes are noted, a manual differential will be performed. Immature Gran Absolute 0.01 0.00 - 0.04 x10(3)/[facility] Blood specimen (specimen) 09/23/2017 11:01 AM EDT 09/23/2017 11:14 AM EDT Narrative Resulting Agency Comment Spec In Lab Anup Hawkins MD HEMATOLOGY ORDERA BLES [facility] [place] [address] * (ABNORMAL) Hemogram (09/23/2017 11:01 AM EDT) White Blood Cell 4.9 4.0 - 9.5 x10(3)/[facility]ORAT[facility] Red Blood Cell 3.85(L) 4.58 - 5.54 x10(6)/[facility] Hemoglobin 11.4(L) 13.7 - 16.5 gm/dL [facility] Hematocrit 35.3(L) 40.5 - 48.5 % [facility] Mean Cell Volume 91.7 82.9 - 93.1 [facility] Mean Cell Hemoglobin 29.6 27.5 - 32.1 pg [facility] Mean Cell Hemoglobin Concentration 32.3 32.0 - 35.7 gm/dL [facility] Platelet 197 145 - 357 x10(3)/ L [facility] RDW Standard Deviation 45.6(H) 36.0 - 45.0 [facility] RDW coefficient of variation 13.5 11.4 - 13.8 % [facility] Mean Platelet Volume 9.3 7.6 - 12.9 fL [facility] NRBC% auto 0.0 % [facility] NRBC Absolute 0.000 0.000 - 0.000 x10(3)/mc L [facility] Blood specimen (specimen) 09/23/2017 11:01 AM EDT 09/23/2017 11:14 AM EDT Narrative Resulting Agency Comment Spec In Lab Anup Hawkins MD HEMATOLOGY ORDERA BLES Performing Organization Address City/[facility]/ZIP Co de Phone Number [facility] [place] [address] * Uric acid (09/23/2017 11:01 AM EDT) Uric Acid 5.7 3.5 - 8.5 mg/dL [facility] Blood specimen (specimen) 09/23/2017 11:01 AM EDT 09/23/2017 11:14 AM EDT Narrative Resulting Agency Comment Spec In Lab Anup Hawkins MD CHEMISTRY ORDERAB LES Performing Organization Address [facility] Co de Phone Number [facility] [place] [address] * Phosphorus (09/23/2017 11:01 AM EDT) Phosphorus 3.9 2.5 - 4.5 mg/dL [facility] Blood specimen (specimen) 09/23/2017 11:01 AM EDT 09/23/2017 11:14 AM EDT Narrative Resulting Agency Comment Spec In Lab Anup Hawkins MD CHEMISTRY ORDERAB LES Performing Organization Address [facility] Co de Phone Number [facility] [place] [address] * Magnesium (09/23/2017 11:01 AM EDT) Magnesium 0.76 0.69 - 1.07 mmol/L [facility] Blood specimen (specimen) 09/23/2017 11:01 AM EDT 09/23/2017 11:14 AM EDT Narrative Resulting Agency Comment Spec In Lab Anup Hawkins MD CHEMISTRY ORDERAB LES [facility] [place] [address] * (ABNORMAL) Comprehensive metabolic panel (non-fasting) (09/23/2017 11:01 AM EDT) Glucose 84 65 - 199 mg/dL [facility] Comment:Diabetes: >=200 mg/d L plus symptoms Blood Urea Nitrogen 50(H) 10 - 20 mg/dL [facility] Creatinine 2.67(H) 0.80 - 1.50 mg/dL [facility] Sodium 144 135 - 145 mmol/L [facility] Potassium 5.2(H) 3.5 - 5.0 mmol/L [facility] Comment: Please note: ??Patients with WBC >100,000 may have falsely elevated Potassium levels. ??For accurate Potassium quantification in these patients send serum separator tube (gold top) for subsequent determinations. ??Contact the Clinical Chemistry Laboratory if there are any questions. Chloride 110(H) 98 - 107 mmol/L [facility] Carbon Dioxide 19(L) 22 - 31 mmol/L [facility] Anion Gap 15 5 - 15 mmol/L [facility] Calcium 8.4(L) 8.5 - 10.5 mg/dL [facility] Protein, Total 6.8 6.1 - 8.0 gm/dL [facility] Albumin 4.3 3.2 - 5.2 gm/dL [facility] Aspartate Aminotransferase 23 0 - 39 unit/L [facility] Alanine Aminotransferase 11 0 - 55 unit/L [facility] Alkaline Phosphatase 104 40 - 120 unit/L [facility] Bilirubin, Total 0.4 0.2 - 1.3 mg/dL [facility] Est Glomerular Filtration Rate 25(L) >=60 [facility] Comment: The reported eGFR should be multiplied by 1.2 for patients. The MDRD is not an appropriate measure of renal function for patients with body mass extremes or in patients with acute kidney failure. http://Osito/DHnkdep http://Osito/DHMCnkf Blood specimen (specimen) 09/23/2017 11:01 AM EDT 09/23/2017 11:14 AM EDT Narrative Resulting Agency Comment Spec In Lab Anup Hawkins MD CHEMISTRY ORDERAB LES [facility] [place] [address] * Cholesterol, total (09/23/2017 11:01 AM EDT) Cholesterol, Total 177 mg/dL [facility] Comment: Lower Risk: <200 mg/dL Average Risk: 200-239 mg/dL Higher Risk: >kv=420 mg/dL Lipid Interpretation See Note [facility] Comment: Lipid management should be guided by a patient? s ASCVD risk, goals and preferences. ACC/AHA Guidelines recommend high intensity statin if clinical ASCVD or LDL greater than or equal to 190 mg/dL. http://[employer]/OCA-KMX-Ytjnozhwe Adults aged 40-75 with LDL 70-189 mg/dL should have their 10 year ASCVD risk estimated with the ACC/AHA ASCVD risk agricultural engineering technician http://tools.acc.org/KOTAI-Xyzy-Nfrbdwlig/ Statin should be discussed if risk greater [...] of ASCVD risk reduction. Blood specimen (specimen) 09/23/2017 11:01 AM EDT 09/23/2017 11:14 AM EDT Narrative Resulting Agency Comment Spec In Lab Anup Hawkins MD CHEMISTRY ORDERAB LES Performing Organization Address [facility]/ZIP Co de Phone Number [facility] [place] [address] * Tacrolimus level (09/23/2017 11:01 AM EDT) Tacrolimus 5.5 ng/mL [facility] Comment: Trough therapeutic: ??5-15 ng/mL Performed by ultra-performance liquid chromatography tandem mass spectrometry (UPLCMS/MS). This test was developed and its performance characteristics determined by [facility]. It has not been cleared or approved by the FDA. The laboratory is regulated under CLIA as qualified to perform high-complexity testing. This test is used for clinical purposes. It should not be regarded as investigational or for research. Blood specimen (specimen) 09/23/2017 11:01 AM EDT 09/23/2017 1:54 PM EDT Narrative Resulting Agency Comment Spec In Lab Anup Hawkins MD CHEMISTRY ORDERAB LES Performing Organization Address [facility] Co de Phone Number [facility] [place] [address] * Urinalysis Microscopic Exam (09/23/2017 11:00 AM EDT) RBC, Urine 1 0 - 3 /HPF [facility] WBC, Urine <1 0 - 3 /HPF [facility] Urine specimen obtained by clean catch procedure (specimen) 09/23/2017 11:00 AM EDT 09/23/2017 4:55 PM EDT Narrative Resulting Agency Comment Spec In Lab Anup Hawkins MD URINE ORDERABLES Performing Organization Address City/[facility]/ZIP Co de Phone Number [facility] [place] [address] * (ABNORMAL) Urinalysis with reflex Culture (09/23/2017 11:00 AM EDT) Glucose, Urine Dipstick Negative Negative mg/dL [facility] Protein, Urine Dipstick 100(A) Negative mg/dL [facility] Bilirubin, Urine Dipstick Negative Negative mg/dL [facility] Comment: Clinical correlation required for positive Urine Bilirubin results as false positive may occur with some drugs and drug related products. If a false positive is suspected a serum total bilirubin should be considered if clinically indicated. Urobilinogen, Urine Dipstick Normal Normal mg/dL [facility] pH, Urn (dipstick) 5.0 5.0 - 8.0 [facility] Blood, Urine Dipstick Negative Negative mg/dL [facility] Ketone, Urine Dipstick Negative Negative mg/dL [facility] Nitrite, Urine Dipstick Negative Negative [facility] Leukocytes, Urine Dipstick Negative Negative mcL [facility] Appearance, Urine Dipstick Clear Clear [facility] Specific [place] Urine Automated 1.015 1.002 - 1.030 [facility] Color, Urine Dipstick Yellow Yellow [facility] Reflex to Culture No [facility] Urine specimen obtained by clean catch procedure (specimen) 09/23/2017 11:00 AM EDT 09/23/2017 4:55 PM EDT Narrative Resulting Agency Comment Spec In Lab Anup Hawkins MD URINE ORDERABLES [facility] [place] [address] * (ABNORMAL) Protein/Creatinine Ratio, urine (09/23/2017 11:00 AM EDT) Creatinine, Urine 76 mg/dL [facility] Protein, Urine 131(H) 0 - 12 mg/dL [facility] Protein / Creatinine Ratio, Urine 1.7 ratio [facility] Urine specimen (specimen) 09/23/2017 11:00 AM EDT 09/23/2017 11:58 AM EDT Narrative Resulting Agency Comment Spec In Lab Anup Hawkins MD URINE ORDERABLES [facility] [place] [address] documented in this encounter Visit Diagnoses Diagnosis S/P kidney transplant Kidney replaced by transplant documented in this encounter Care Teams Paint Roller Cover Machine Setter Relationship Specialty Start Date End Date Carroll Fuentes DO [address] [place] [address] PCP - General 09/23/11 10/20/22 documented as of this encounter
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
--- OUTSIDE RECORDS SUMMARY | 2024-04-22 11:08 | XMS_ITS | Encounter Summary ---
Author Organization [facility] [place] [address] Care Team Providers Care Parts Chaser Name Role Phone AlfredoCarroll allison Primary Care Provider Encounter Details Date Type Department Care Team (Latest Contact Info) Description 09/14/2017 8:47 PM EST - 09/14/2017 11:59 PM [facility] [place] [address] Discharge Disposition: Home Social History Tobacco Use [...] Sig Dispensed Refills Start Date End Date cholecalciferol, Vitamin D3, 50,000 unit Capsule Take by mouth once a week. 0 07/07/2017 03/01/2018 pantoprazole (PROTONIX) 40 mg Tablet, Delayed Release (E.C.) Take 20 mg by mouth 2 times daily. 0 08/17/2017 10/20/2017 tacrolimus (PROGRAF) 1 mg Capsule Take 1 capsule twice daily. Kidney transplant 11/26/2002. ICD code Z94.0 60 capsule 6 09/08/2017 02/28/2018 pantoprazole (PROTONIX) 20 mg Tablet, Delayed Release (E.C.) Take 1 tablet by mouth 2 times daily. 180 tablet 3 08/17/2017 2018 allopurinol (ZYLOPRIM) 100 mg Tablet Take 1 and 1/2 tablet daily. 45 tablet 5 07/23/2017 01/17/2018 sodium bicarbonate 650 mg Tablet Take 1 [...] mouth daily. 90 capsule 3 05/31/2017 06/28/2018 levETIRAcetam (KEPPRA) 500 mg Tablet Take 500 mg by mouth 2 times daily. Take 500 mg in the morning and 1,000 mg at night. 10/18/2017 mycophenolate (CELLCEPT) 250 mg CapsuleIndications:S/ P kidney transplant Take 1 capsule by mouth 2 times daily. Kidney Transplant Z94.0. Transplant Date; 11-26-02 180 capsule 11 05/16/2017 2018 hydrALAZINE (APRESOLINE) 50 mg Tablet Take 1 tablet by mouth 2 times daily. 180 tablet 3 03/09/2017 12/29/2017 multivitamin Capsule Take 1 capsule by mouth daily. 2018 levothyroxine (SYNTHROID) 100 mcg Tablet Take 100 mcg by mouth daily. 2018 metoprolol tartrate (LOPRESSOR) 50 mg tablet Take 50 mg by mouth 3 times daily. 12/03/2010 10/20/2017 documented as of this encounter Plan of Treatment Not on file documented as of this encounter Procedures Procedure Name Priority Date/Time Associated Diagnosis Comments TACROLIMUS LEVEL Routine 09/14/2017 10:1 0 AM EST documented in this encounter Results * Tacrolimus level (09/14/2017 10:10 AM EST) Tacrolimus 4.7 ng/mL [facility] Comment: Trough therapeutic: ??5-15 ng/mL Performed by ultra-performance liquid chromatography tandem mass spectrometry (UPLCMS/MS). This test was developed and its performance characteristics determined by [facility]. It has not been cleared or approved by the FDA. The laboratory is regulated under CLIA as qualified to perform high-complexity testing. This test is used for clinical purposes. It should not be regarded as investigational or for research. Blood specimen (specimen) Venous Draw / Unknown 09/14/2017 10:10 AM EST 09/15/2017 7:30 AM EST Narrative Resulting Agency Comment Spec In Lab Anup Hawkins MD CHEMISTRY ORDERAB LES [facility] [place] [address] documented in this encounter Visit Diagnoses Not on filedocumented in this encounter Care Teams Parts Chaser Relationship Specialty Start Date End Date Carroll Fuentes DO [address] [place] [address] PCP - General 09/23/11 10/20/22 documented as of this encounter
--- OUTSIDE RECORDS SUMMARY | 2024-04-22 11:08 | XMS_ITS | Encounter Summary ---
Author Organization [facility] [place] [address] Care Team Providers Care Cupola Man Name Role Phone AlfredoCarroll allison Primary Care Provider Encounter Details Date Type Department Care Team (Latest Contact Info) Description 06/29/2017 9:34 PM EST - 06/29/2017 11:59 PM [facility] [place] [address] Discharge Disposition: Home Social History Tobacco Use [...] Sig Dispensed Refills Start Date End Date sodium bicarbonate 650 mg Tablet Take 1 [...] mouth daily. 90 capsule 3 05/31/2017 06/28/2018 tacrolimus (PROGRAF) 1 mg Capsule Take 1 capsule twice daily. Kidney transplant 11/26/2002. ICD code Z94.0 60 capsule 11 05/28/2017 09/08/2017 levETIRAcetam (KEPPRA) 500 mg Tablet Take 500 mg by mouth 2 times daily. Take 500 mg in the morning and 1,000 mg at night. 10/18/2017 pantoprazole (PROTONIX) 20 mg Tablet, Delayed Release (E.C.) Take 20 mg by mouth daily. 08/17/2017 mycophenolate (CELLCEPT) 250 mg CapsuleIndications:S/ P kidney transplant Take 1 capsule by mouth 2 times daily. Kidney Transplant Z94.0. Transplant Date; 11-26-02 180 capsule 11 05/16/2017 2018 hydrALAZINE (APRESOLINE) 50 mg Tablet Take 1 tablet by mouth 2 times daily. 180 tablet 3 03/09/2017 12/29/2017 allopurinol (ZYLOPRIM) 100 mg TabletIndications:Hig h level of uric acid in blood Take 1 and 1/2 tablet daily. 45 tablet 11 01/07/2017 07/23/2017 multivitamin Capsule Take 1 capsule by mouth [...] Date/Time Associated Diagnosis Comments TACROLIMUS LEVEL Routine 06/29/2017 11:1 5 AM EST documented in this encounter Results * Tacrolimus level (06/29/2017 11:15 AM EST) Tacrolimus <3.0 ng/mL [facility] Comment: Trough therapeutic: ??5-15 ng/mL Performed by ultra-performance liquid chromatography tandem mass spectrometry (UPLCMS/MS). This test was developed and its performance characteristics determined by [facility]. It has not been cleared or approved by the FDA. The laboratory is regulated under CLIA as qualified to perform high-complexity testing. This test is used for clinical purposes. It should not be regarded as investigational or for research. Blood specimen (specimen) Venous Draw / Unknown 06/29/2017 11:15 AM EST 06/30/2017 7:32 AM EST Narrative Resulting Agency Comment Spec In Lab Anup Hawkins MD CHEMISTRY ORDERAB L[facility] [place] [address] documented in this encounter Visit Diagnoses Not on filedocumented in this encounter Care Teams Cupola Man Relationship Specialty Start Date End Date Carroll Fuentes DO [address] [place] [address] PCP - General 09/23/11 10/20/22 documented as of this encounter
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
--- OUTSIDE RECORDS SUMMARY | 2024-04-22 11:08 | XMS_ITS | Encounter Summary ---
Author Organization [facility] [place] [address] Care Team Providers Care Book Sorter Name Role Phone AlfredoCarroll allison Primary Care Provider [phone] Encounter Details Date Type Department Care Team (Late st Contact Info) Description 07/27/2017 Telephone [place] [address] Crystal Brown CMA Social History Tobacco Use [...] encounter Miscellaneous Notes * Telephone Encounter - Crystal Brown CMA - 07/27/2017 3:58 PM EST Spoke with pharmacy staff who state that patient has come into the pharmacy multiple different times (6 times in June alone), stating that he couldn't find his med, paid out of pocket, didn't remember picking up meds just a few days earlier. Seems a little disoriented. Pharmacist is very concerned that the patient my not be taking his meds correctly and that she was concerned about how frequently he is returning to fill medications that he had just gotten a few days ago. Pharmacist had a lengthy discusion with the patient about this matter. Patient told pharmacist that he knows that it jin problem. He seemed flustered and disoriented. Pharmacist has also reached out to the patient's PCP. documented in this encounter Plan of Treatment Not on file documented as of this encounter Visit Diagnoses Not on filedocumented in this encounter Care Teams Book Sorter Relationship Specialty Start Date End Date Carroll Fuentes DO [address] [place] [address] PCP - General 09/23/11 10/20/22 documented as of this encounter
--- OUTSIDE RECORDS SUMMARY | 2024-04-22 11:08 | XMS_ITS | Encounter Summary ---
Author Organization [facility] [place] [address] Care Team Providers Care Data Management Engineer Name Role Phone AlfredoCarroll allison Primary Care Provider [phone] Encounter Details Date Type Department Care Team (Late st Contact Info) Description 12/29/2017 Refill [place] [address] Crystal Brown CMA Social History Tobacco Use [...] Telephone Encounter - Crystal Brown CMA - 12/29/2017 2:02 PM EDT ----- Message from Oc Jensen sent at 12/29/2017 9:46 AM EDT ----- Patient needs Rx -Medication: hydrALAZINE (APRESOLINE) 50 mg Tablet -Dosage: 1x50mg 2x daily -Supply: Patient is completely out (he was able to take his dosage this AM) -Pharmacy: [phone] [place], [place] - [address] [place] [address] (Now is a [facility]) -Callback Number: [phone] - Maisha (Pharmacist) documented in this encounter Plan of Treatment Not on file documented as of this encounter Visit Diagnoses Not on filedocumented in this encounter Care Teams Data Management Engineer Relationship Specialty Start Date End Date Carroll Fuentes DO [address] [place] [address] PCP - General 09/23/11 10/20/22 documented as of this encounter
--- OUTSIDE RECORDS SUMMARY | 2024-04-22 11:08 | XMS_ITS | Encounter Summary ---
Author Organization [facility] [place] [address] Care Team Providers Care Wine Specialist Name Role Phone Carroll Fuentes DO Primary Care Provider [phone] Encounter Details Date Type Department Care Team (Late st Contact Info) Description 07/28/2017 Notes Only [place] [address] Beth Soliman RN Social History Tobacco Use Types Packs/Day [...] as of this encounter Progress Notes * Beth Soliman, SAVANNA - 07/28/2017 11:50 AM EST Called Patient and confirmed all medications and dosage with Patient. Patient oriented and seemed to understand all medications. I am available for any questions or concerns. documented in this encounter Plan of Treatment Not on file documented as of this encounter Visit Diagnoses Not on filedocumented in this encounter Care Teams Wine Specialist Relationship Specialty Start Date End Date Carroll Fuentes DO [address] [place] [address] PCP - General 09/23/11 10/20/22 documented as of this encounter
--- OUTSIDE RECORDS SUMMARY | 2024-04-22 11:08 | XMS_ITS | Encounter Summary ---
Author Organization [facility] Address [facility] [place] [address] Care Team Providers Care Nitrocellulose Operator Name Role Phone Carroll Fuentes DO Primary Care Provider [phone] Reason for Visit * Reason Comments Skin Check Encounter Details Date Type Department Care Team (Late st Contact Info) Description 10/14/2017 12:45 PM EDT Office Visit Dermatology at [facility] [address] [place] [address] Chanel Smith MD [facility] [address] KADIE [place] [address] History of nonmelanoma skin cancer; Rosacea; AK (actinic keratosis); Multiple benign nevi Social History Tobacco Use Types Packs/Day Years [...] on file documented as of this encounter Patient Instructions * Patient Instructions* Kiara Dash - 10/14/2017 12:45 PM EDT Plan for Adama: - Recommend daily face lotion spf 15-30 (Kindra Milan AM, Cotz) Actinic Keratoses You have been diagnosed today with Actinic Keratosis (AK). These dry, scaly patches are considered the earliest stage in the development of skin cancer. In rare cases, an AK can progress to skin cancer. Because of this risk, AKs are usually treated. You were treated today with Liquid Nitrogen. This is the most common treatment for AKs. Liquid nitrogen is extremely cold, and freezes the surface of the skin, causing the lesion to flake off. Treatment with liquid nitrogen can be uncomfortable, but discomfort should subside after a couple of hours. The area treated will look red and irritated, and it may blister up or turn dark, then fall off. This is normal! You do not need any special treatment for the area, but you may find cold compresses and/or a lightapplication of Vaseline soothing. For best results, do not rub or pick at the healing lesion. Expected healing time is 3-4 weeks. Please contact the Dermatology clinic at [phone] if the lesion has not fully resolved after 6 weeks. Caring for Your Skin Sun Protection Exposure to ultraviolet (UV) light--from the sun or tanning beds--is the most common modifiable risk factor for skin cancer. In fact, most skin cancers are found in locations where sun exposure is highest (e.g., face, ears, and hands). Furthermore, UV exposure is associated with skin aging, including wrinkles, brown spots, and leathery skin. Recommendations ?? Generously apply a broad-spectrum water-resistant sunscreen with a Sun Protection Factor (SPF) of 30 or more to all exposed skin. ?? Reapply sunscreen every 2 hours, even on cloudy days, and after swimming or sweating. ?? Preferred sunscreens: Sunscreens work by either forming a physical or a chemical barrier to ultraviolet light. Zinc oxide or Titanium dioxide are physical barriers to the sun. We recommend sunscreens that contain at least one physical barrier. Look for these brands: Neutrogena, Blue Lizard, [place] Baby, Jairo Cortez MD, Shelley trevizo spf 45 very emollient sport (blue bottle) ?? Wear protective clothing. Long-sleeved shirts, pants, a wide-brimmed hat and sunglasses are all excellent choices. Some companies produce great, breathable SPF clothing (Coolibar, LL Marroquin, Wednesday Afternoons) ?? Seek shade. The sun's rays are strongest between 10a.m. And 4 p.m. ?? Recommend daily face lotion spf 15-30 (Kayli KNAPP, Bryant Arguelles) Skin Cancer screening The incidence of skin cancer has increased dramatically in the past 20 years. The most common skin cancer types include basal cell carcinoma and squamous cell carcinoma. These often look like new moles, and they might be tender, scaly, or prone to bleeding. The most deadly form of skin cancer is melanoma, and it can affect people of all ages and skin types. Recommendations ?? We recommend performing a skin self-examination monthly to become familiar with your moles. Thiswill help you to detect new or changing moles earlier. ?? Remember the ABCDE's of melanoma: ?? Asymmetry - Melanoma tends to grow in an asymmetric (uneven) fashion ?? Border - The border in melanoma tends to be uneven or jagged ?? Color - Melanomas often have different colors (e.g., dark brown, black, red) ?? Diameter - Look for moles that are larger than 0.6 cm (the size of a pencil eraser) ?? Evolution - This is perhaps the most important feature. Any mole that is rapidly growing or changing should be evaluated. If you have any questions, please call [phone]. documented in this encounter Progress Notes * Chanel Smith MD - 10/14/2017 12:45 PM EDT DERMATOLOGY - PATIENT NOTE [facility] Date of service: 10/14/2017 Adama Ram : 1960 CC: full skin examination HPI: Adama Ram is a 57 y.o. male, established patient last seen by Dr. Sage on 10/26/2016. Here today for a full skin examination. Presents with the following concerns: - No specific lesions that are concerning. No spots that are changing colors, itching, or bleeding.No pain, or tenderness. Last FSE: 10/26/2016 Sun protection: Not a whole lot, wears long sleeves and hats and avoids peak sun hours Relevant Medical History: Preferred Name: Adama Skin Type: 2 ?? Yes/No If yes (date, subtype, location, treatment) Melanoma No ?? Dysplastic nevi No ?? SCC Yes 11/2015, left facial, SCC poorly [...] left forearm, nodular and superficial, s/p ED&C Field cancerization therapy No 5-FU: IQ: PDT: Ingenol: Diclofenac: Acitretin: Nicotinamide: Immunosuppression Yes S/p kidney transplant on 11/26/2002 - Prograf 1 mg po BID - Cellcept 250 mg po BID Malignancy Yes Renal cell carcinoma Other Yes H/o TBI and seizure disorder ?? Rosacea - metrocream bid prn ? Transplant team: Dr. Hawkins Otolaryngology team: Dr. Miguel Angel Moreno Credit Risk Officer: Dr. 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 Marital status: Single Medications: acetaminophen, allopurinol, dilTIAZem, docusate sodium, hydrALAZINE, levETIRAcetam, levothyroxine, losartan, metoprolol tartrate, multivitamin, mycophenolate, pantoprazole, sodium bicarbonate, tacrolimus, and warfarin Allergies Allergen Reactions ??? Benazepril Hcl ??? [...] and left upper extremities, right and left thighs and buttocks was normal with the exception of the findings listed below. Lower legs and feet not examined - patient wearing compression socks. Notable findings/Assessment/Plan: 1. History of NMSC - well healed scars as above in history. - NER - Reviewed importance of sun protection (hats/shade/clothing) and sunscreen recommendations (SPF30,UVA/UVB broad spectrum coverage, reapply every 2 hrs if still outside). - Discussed warning signs of skin cancer, ABCDEs of melanoma. - Recommend daily face lotion spf 15-30 (Cerave AM, Aveeno, Cotz) - Handout provided. 2. Rosacea - papulopustular type - few pustules on the face in a background of erythema - Reviewed triggers for rosacea (alcohol, exercise, hot foods/drinks, spicy foods, sun exposure) and poor response of erythema to medical managment. Discussed possible use of cover up or laser therapy including cost of laser therapy as it is a cosmetic procedure. - Refill sent today for Rx: Metrocream BID as needed 3. Actinic keratosis - ill defined gritty papule on the right mid cheek. - Reviewed diagnosis with patient and treatment options. - Patient opted to proceed with liquid nitrogen with two freeze thaw cycles Number of lesions - 1 The patient's consent for liquid nitrogen was obtained. Risks and benefits were explained. The possible need for additional liquid nitrogen was reviewed. Risks of increased pigmentation, decreased pigmentation, blister formation, infection, pain, and recurrence were all discussed. The patient tolerated the procedure well. Wound care was reviewed. 4. Benign nevi - Scattered medium brown macules and papules on the trunk and extremities with reassuring pigment pattern (patchy reticular) on dermoscopy. - Reassured of benign appearance on exam today. - Reviewed ABCDEs of melanoma and sun protection 5. Elevated skin cancer risk 2/2 renal transplant in 2002 - - Reviewed importance of sun protection 365 days per day (hats/shade/clothing) and sunscreen recommendations (SPF30, UVA/UVB broad spectrum coverage, reapply every 2 hrs if still outside). Discussed warning signs of skin cancer, ABCDEs of melanoma. RTC: February 2018 for a FSE or PRN if any new or concerning skin lesions Note initiated by Cammy Giles LPN. Kiara Dash has performed the documentation for this encounter in the presence of and acting asa scribe for Dr. Smith. I performed the above scribed service and agree with the accuracy of the documentation in this encounter. Reviewed and signed by: Chanel Smith MD Dermatology [facility] documented in this encounter Plan of Treatment Not on file documented as of this encounter Visit Diagnoses Diagnosis History of nonmelanoma skin cancer Personal history of other malignant neoplasm of skin Rosacea AK (actinic keratosis) Actinic keratosis Multiple benign nevi Benign neoplasm of skin, site unspecified documented in this encounter Care Teams Nitrocellulose Operator Relationship Specialty Start Date End Date Carroll Fuentes DO [address] [place] [address] PCP - General 09/23/11 10/20/22 documented as of this encounter
--- OUTSIDE RECORDS SUMMARY | 2024-04-22 11:08 | XMS_ITS | Encounter Summary ---
Author Organization [facility] [place] [address] Care Team Providers Care Strings Teacher Name Role Phone AlfredoCarroll allison Primary Care Provider [phone] Encounter Details Date Type Department Care Team (Late st Contact Info) Description 08/18/2017 Notes Only Solid [place] [address] Crystal Brown CMA Social History Tobacco Use [...] Progress Notes * Crystal Brown CMA - 08/18/2017 1:46 PM EST PA Needed: ?? Medication: PANTOPRAZOLE 20 MG BID ?? [place] ?? Phone: ?? Manager Regulatory: [employer] ?? Reference #: [email or web address] ?? Outcome: PENDING * Crystal Brown CMA - 08/18/2017 1:46 PM EST APPROVED 08/18/17 - 08/18/18 #[id number] documented in this encounter Plan of Treatment Not on file documented as of this encounter Visit Diagnoses Not on filedocumented in this encounter Care Teams Strings Teacher Relationship Specialty Start Date End Date Carroll Fuentes DO [address] [place] [address] [address] [place] [address] PCP - General 09/23/11 10/20/22 documented as of this encounter
--- OUTSIDE RECORDS SUMMARY | 2024-04-22 11:08 | XMS_ITS | Encounter Summary ---
Author Organization [facility] Address [facility] [place] [address] Care Team Providers Care Epic Professional Name Role Phone Carroll Fuentes DO Primary Care Provider Reason for Referral * Diagnostic Test (Routine) - Closed Specialty Diagnoses / Procedures Referred By Contac t Referred To Contact Radiology Diagnoses Renal cell carcinoma, unspecified laterality Procedures CT Chest & Abdomen wo Contrast Jax Mills MD [facility] [place] [address] [facility] [place] [address] Referral ID Status Reason Start Date Expiration Date V isits Requested Visits Authorized [id number] Closed Specialty Service Requested 09/17/2017 12/16/2017 1 1 Reason for Visit * Diagnostic Test (Routine) - Closed Specialty Diagnoses / Procedures Referred By Contac t Referred To Contact Radiology Diagnoses Renal cell carcinoma, unspecified laterality Procedures CT Chest & Abdomen wo Contrast Jax Mills MD [facility] [place] [address] [facility] [place] [address] Referral ID Status Reason Start Date Expiration Date V isits Requested Visits Authorized [id number] Closed Specialty Service Requested 09/17/2017 12/16/2017 1 1 Encounter Details Date Type Department Care Team (Latest Contact Info) Description 09/23/2017 1:54 PM EDT - 09/23/2017 11:59 PM EDT Hospital Encounter CT Scan at [facility] [place], [facility] [address] Jax Mills MD [facility] [place] [address] Renal cell carcinoma, unspecified laterality Discharge Disposition: Home Social History Tobacco Use [...] Name Priority Date/Time Associated Diagnosis Comments CT CHEST AND ABDOMEN WO CONTRAST Routine 09/23/2017 2:44 PM EDT Renal cell carcinoma, unspecified laterality documented in this encounter Results * CT Chest & Abdomen wo Contrast (09/23/2017 2:44 PM EDT) Anatomical Region Laterality Modality Chest, Abdomen Computed Tomogra phy Impressions 09/23/2017 3:07 PM EDT intestinal segments are unremarkable. No dilatation seen. IMPRESSION: 1. ??Interval LEFT nephrectomy 2. ??The LEFT adrenal gland is not well seen likely surgically absent. 3. ??Noncontrast evaluation of the abdomen is otherwise without significant abnormality. Narrative 09/23/2017 3:07 PM EDT ? EXAMINATION: CT CHEST AND ABDOMEN WO CONTRAST CLINICAL HISTORY: s/p left nephrectomy for RCC TECHNIQUE: Helical CT of the abdomen and pelvis was performed without the use of intravenous contrast COMPARISON: CT scan from May 2017. FINDINGS: This examination is limited for the evaluation of solid organs and vasculature structures due to the lack of intravenous contrast. Chest Lungs and large airways: 4 mm oval density abutting on the major fissure [series 4-63] resembles an intraparenchymal lymph node. No other lesion seen. The airways are clear. Pleura: No effusion. Vasculature: No stenosis or aneurysm Heart: Normal size, no pericardial effusion. Mediastinum and lupe: No lymphadendopathy. Abdomen LEFT ambler kidney: Interval nephrectomy. RIGHT ambler kidney : Atrophic, unchanged. Transplanted RIGHT pelvic kidney: Not included in entirety grossly normal appearance. Calculi: None Obstruction/hydronephrosis: None Calculi: None The liver: Unchanged in size with borderline enlargement. No focal lesions seen.. The spleen: Normal pancreas: Normal appearance. adrenal glands: LEFT adrenal gland not well seen likely resected. Normal appearance of the RIGHT adrenal gland. Lymph nodes: Not enlarged. Aorta: No aneurysm Peritoneum: No free fluid or free air. Bowel: The enteric contrast is located in the stomach. The remaining nonopacified Procedure Note Constance Aguilar MD - 09/23/2017 EXAMINATION: CT CHEST AND ABDOMEN WO CONTRAST CLINICAL HISTORY: s/p left nephrectomy for RCC TECHNIQUE: Helical CT of the abdomen and pelvis was performed without theuse of intravenous contrast COMPARISON: CT scan from May 2017. FINDINGS: This examination is limited for the evaluation of solid organs andvasculature structures due to the lack of intravenous contrast. Chest Lungs and large airways: 4 mm oval density abutting on the major fissure[series 4-63] resembles an intraparenchymal lymph node. No other lesion seen.The airways are clear. Pleura: No effusion. Vasculature: No stenosis or aneurysm Heart: Normal size, no pericardial effusion. Mediastinum and lupe: No lymphadendopathy. Abdomen LEFT ambler kidney: Interval nephrectomy. RIGHT ambler kidney : Atrophic, unchanged. Transplanted RIGHT pelvic kidney: Not included in entirety grosslynormal appearance. Calculi: None Obstruction/hydronephrosis: None Calculi: None The liver: Unchanged in size with borderline enlargement. No focallesions seen.. The spleen: Normal pancreas: Normal appearance. adrenal glands: LEFT adrenal gland not well seen likely resected. Normal appearance of the RIGHT adrenal gland. Lymph nodes: Not enlarged. Aorta: No aneurysm Peritoneum: No free fluid or free air. Bowel: The enteric contrast is located in the stomach. The remainingnonopacified IMPRESSION intestinal segments are unremarkable. No dilatation seen. IMPRESSION: 1. Interval LEFT nephrectomy 2. The LEFT adrenal gland is not well seen likely surgically absent. 3. Noncontrast evaluation of the abdomen is otherwise withoutsignificant abnormality. Jax Mills MD IMG CT ORDERABLES documented in this encounter Visit Diagnoses Diagnosis Renal cell carcinoma, unspecified laterality documented in this encounter Care Teams Epic Professional Relationship Specialty Start Date End Date Carroll Fuentes DO [address] [place] [address] PCP - General 09/23/11 10/20/22 documented as of this encounter
--- OUTSIDE RECORDS SUMMARY | 2024-04-22 11:08 | XMS_ITS | Encounter Summary ---
Author Organization [facility] Address [facility] [place] [address] Care Team Providers Care Nut Blanker Operator Name Role Phone Carroll Fuentes DO Primary Care Provider [phone] Encounter Details Date Type Department Care Team (Late st Contact Info) Description 11/29/2017 Refill Dermatology at [facility] [address] [place] [address] Chanel Smith MD [facility] [place] [address] Rosacea Social History Tobacco Use Types Packs/Day Years [...] encounter Miscellaneous Notes * Telephone Encounter - Cammy Giles LPN - 11/29/2017 4:09 PM EDT Patient was seen on 10/14/2017 and review of note says a refill was sent that day but after chart review there was no metrocream sent that day. Patient called today stating he still never received his metrocream prescription. This prescription is pending to his preferred pharmacy for approval. * Telephone Encounter - Deyvi Pickard - 11/29/2017 1:20 PM EDT called today and states he has been waiting since his visit with on 10/14 for a prescription and nothing has been sent to his [facility] in [facility]. According to office not it looks like the medication he is requesting is - Refill sent today for Rx: Metrocream BID as needed ?? documented in this encounter Plan of Treatment Not on file documented as of this encounter Visit Diagnoses Diagnosis Rosacea documented in this encounter Care Teams Nut Blanker Operator Relationship Specialty Start Date End Date Carroll Fuentes DO [address] [place] [address] PCP - General 09/23/11 10/20/22 documented as of this encounter
--- OUTSIDE RECORDS SUMMARY | 2024-04-22 11:08 | XMS_ITS | Encounter Summary ---
Author Organization [facility] [place] [address] Care Team Providers Care Integrated Marketing Intern Name Role Phone AlfredoCarroll allison Primary Care Provider [phone] Encounter Details Date Type Department Care Team (Late st Contact Info) Description 07/01/2017 Telephone [place] [id number] Misael Segundo, RN Social History Tobacco Use [...] Telephone Encounter - Misael Segundo, RN - 07/01/2017 9:17 AM EST Prograf DoseAdjustment Patient: Adama Ram Date of Lab Test: 06/29/17 Prograf Level: <3.0 Previous Prograf Dose: 07/12 New Prograf Dose: 08/12 Spoke with Adama Ram to relay information about Prograf level and need to adjust dosing. Pt is aware of the result and repeated back adjustment in dosing. Pt is aware of the need for a repeat blood draw in two week's time and has proper orders to have this done. Pt understands plan of care. No additional questions or concerns. Misael Segundo RN-BSN Post Orthodontist Assistant [facility] Solid Organ Transplant documented in this encounter Plan of Treatment Not on file documented as of this encounter Visit Diagnoses Diagnosis S/P kidney transplant Kidney replaced by transplant documented in this encounter Care Teams Integrated Marketing Intern Relationship Specialty Start Date End Date Carroll Fuentes DO [address] [place] [address] PCP - General 09/23/11 10/20/22 documented as of this encounter
--- OUTSIDE RECORDS SUMMARY | 2024-04-22 11:08 | XMS_ITS | Encounter Summary ---
Author Organization [facility] Address [facility] [place] [address] Care Team Providers Care Telephone Order Supervisor Name Role Phone AlfredoCarroll allison Primary Care Provider [phone] Encounter Details Date Type Department Care Team (Latest Contact Info) Description 12/21/2017 9:20 PM EDT - 12/21/2017 11:59 PM EDT Hospital [place] [address] Discharge Disposition: Home Social History Tobacco Use [...] Sig Dispensed Refills Start Date End Date metroNIDAZOLE (METROCREAM) 0.75 % CreamIndications:Carolina cea Apply topically to face twice daily as needed. 45 g 11/29/2017 04/07/2018 cholecalciferol, Vitamin D3, 50,000 unit Capsule Take by mouth once a week. 0 07/07/2017 03/01/2018 metoprolol tartrate (LOPRESSOR) 50 mg Tablet Take half a pill 3 times a day 180 tablet 11 10/20/2017 05/03/2018 levETIRAcetam (KEPPRA) 500 mg Tablet Take 1 pill in a.m. and half a pill in p.m. 45 tablet 11 10/20/2017 05/25/2018 tacrolimus (PROGRAF) 1 mg Capsule Take 1 [...] Procedure Name Priority Date/Time Associated Diagnosis Comments LAVENDER TUBE HOLD Routine 12/21/2017 11 :54 AM EDT TACROLIMUS LEVEL Routine 12/21/2017 11:5 4 AM EDT documented in this encounter Results * Lavender Tube HOLD (12/21/2017 11:54 AM EDT) Lavender Hold Sample in lab. [facility] Blood specimen (specimen) No Charge / Unknown 12/21/2017 11:54 AM EDT 12/21/2017 9:34 PM EDT Anup Hawkins MD HEMATOLOGY ORDERA BLES Performing Organization Address [facility] Co de Phone Number [facility] [place] [address] * Tacrolimus level (12/21/2017 11:54 AM EDT) Tacrolimus 7.8 ng/mL [facility] Comment: Trough therapeutic: ??5-15 ng/mL Performed by ultra-performance liquid chromatography tandem mass spectrometry (UPLCMS/MS). This test was developed and its performance characteristics determined by [facility]. It has not been cleared or approved by the FDA. The laboratory is regulated under CLIA as qualified to perform high-complexity testing. This test is used for clinical purposes. It should not be regarded as investigational or for research. Blood specimen (specimen) Venous Draw / Unknown 12/21/2017 11:54 AM EDT 12/22/2017 7:22 AM EDT Narrative Resulting Agency Comment Spec In Lab Anup Hawkins MD CHEMISTRY ORDERAB LES Performing Organization Address [facility]/ZIP Co de Phone Number [facility] [place] [address] documented in this encounter Visit Diagnoses Not on filedocumented in this encounter Care Teams Telephone Order Supervisor Relationship Specialty Start Date End Date Carroll Fuentes DO [address] [place] [address] PCP - General 09/23/11 10/20/22 documented as of this encounter
--- OUTSIDE RECORDS SUMMARY | 2024-04-22 11:08 | XMS_ITS | Encounter Summary ---
Author Organization [facility] Address [facility] [place] [address] Care Team Providers Care Product Strategy Director Name Role Phone AlfredoCarroll allison Primary Care Provider [phone] Reason for Visit * Reason Comments Kidney Cancer Encounter Details Date Type Department Care Team (Late st Contact Info) Description 09/23/2017 3:20 PM EDT [place] [address] Jax Mills MD [facility] [place] [address] Renal cell carcinoma, unspecified laterality Social History Tobacco Use Types Packs/Day Years [...] Sign Reading Time Taken Comments Blood Pressure 113/81 09/23/2017 3:29 PM EDT Pulse 60 09/23/2017 3:29 PM EDT Temperature - - Respiratory Rate - - Oxygen Saturation - - Inhaled Oxygen Concentration - - Weight - - Height - - Body Mass Index - - documented in this encounter Progress Notes * Jax Mills MD - 09/23/2017 3:20 PM EDT UROLOGY FOLLOW UP ?? 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 Since last visit, he has undergone a right inguinal hernia repair,which went well. He denies any fever, chills, nausea or vomiting. Past Medical History: Diagnosis Date ??? BP [...] performed by Miguel Angel Moreno MD at [facility] OR ??? PRO EXC PAROTD, TOTAL, UNILAT RAD NECK Left 02/05/2016 @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, TOTAL, WITH UNILATERAL RADICAL NECK DISSECTION performed by Miguel Angel Moreno MD at [facility] OR ??? PRO EXC SKIN MALIG 3.1-4CM FACE, FACIAL Left 02/05/2016 EXC MALIGNANT LESION, 3.1 TO 4.0CM, FACE performed by Miguel Angel Moreno MD at [facility] OR ? ? PRO EXC SKIN MALIG >4CM TRUNK, ARM, LEG 04/19/2012 EXC MALIGNANT LESION, MICHAEL > 4.0CM, TRUNK performed by SABRINA SANCHEZ at [facility] OR ??? PRO LAP, RADICAL NEPHRECTOMY Left 05/31/2017 @LAPAROSCOPY, RADICAL NEPHRECTOMY (WRVU 25.06) performed by Jax Mills MD at [facility] OR ??? PRO REPAIR INTERMEDIATE S/A/T/E 2.6-7.5 CM 04/19/2012 REPAIR INTERMEDIATE WOUND, (NO HANDS OR FEET) 2.6 TO 7.5CM, UPPER EXTREMITY performed by SABRINA SANCHEZ at [facility] OR ? ? PRO SPLIT GRFT, HEAD, FAC, HAND, FEET <100SQCM N/A 02/20/2016 SPLIT THICKNESS SKIN SPLIT GRAFT,100SQ CM OR LESS, NECK performed by Miguel Angel Moreno MD at [facility] MAIN OR ??? PRO UPPER GI ENDOSCOPY, BIOPSY N/A 05/13/2017 EGD WITH BIOPSY (WRVU 2.49) performed by Aditya Barrera MD at [facility] ENDOSCOPY ??? PRO VASCULAR SURGERY PROCEDURE UNLIST Left 11/20/2015 LIGATION\REPAIR AV FISTULA performed by Camilo Ireland MD at [facility] MAIN OR ??? PRO VASCULAR SURGERY PROCEDURE UNLIST Left 11/20/2015 EXCISION VEIN FROM HAND performed by Camilo Ireland MD at [facility] MAIN OR ??? US RENAL TRANSPLANT BIOPSY 12/31/2010 Social History Social History ??? Marital status: Single Spouse name: N/A ??? Number of children: N/A ??? Years of education: N/A Occupational History ??? 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 Smoking status: Former Smoker Packs/day: 0.25 Years: 1.50 Types: Cigarettes Quit date: 12/03/2000 ??? Smokeless tobacco: Former User Quit date: 04/14/2001 ??? Alcohol use No ??? Drug use: Yes Special: Marijuana Comment: havent in /1995 ??? Sexual activity: Not Asked Comment: Deferred Other Topics Concern ??? None Social History Narrative Family History Problem Relation Age of Onset ??? Pancreatitis Father ROS: negative for fever, chills, nausea, vomiting, diarrhea, constipation, hematuria, dysuria, CP, SOB Most Recent Vitals: 09/23/17 1529 BP: 113/81 Pulse: 60 Alert, oriented, nad Soft, nontender abdomen Incisions well healed. No hernias Extremities well perfused ? Surgical Pathology DIAGNOSIS Specimen ?Specimen: ??Kidney ? Specimen Laterality: ?? Left ?Procedure: ??Radical nephrectomy Tumor ?Histologic Type: ?? Papillary renal cell carcinoma [...] identified ? Lymphovascular Invasion: ?? Not identified Margins ?Margins: ??Uninvolved by invasive carcinoma Lymph Nodes ?Regional Lymph Nodes: ?? No lymph nodes submitted or found Pathologic Stage Classification (pTNM, AJCC 7th Edition) ?TNM Descriptors: ?? m (multiple primary tumors) ?Primary Tumor (pT): ?? pT1b: Tumor more than 4 cm but not more than 7 cm in ? greatest dimension, limited to the kidney ?Regional Lymph Nodes (pN): ?? pNX: Regional lymph nodes cannot be assessed Additional Findings ?Pathologic Findings in Nonneoplastic Kidney: ?Glomerular disease - ? Diffuse global glomerulosclerosis, Tubulointerstitial disease - Extensive ? interstitial fibrosis ?Other Tumors and / or Tumor-Like Lesions: ?Tubular (papillary) adenoma(s) ?Adrenal Gland: ?? Not identified Tumor Block(s): ?? A7, A14 Normal Block(s): ?? A15 CAP eCC 2016 WHO Update Release Electronically signed by: ??Nidia JONES, Juan Carlos Grubbs Verified: ??06/08/2017 ?Pathologist Performed at: ??-[facility] Dept. of Pathology, [place], [place] DISCUSSION Some morphologic features including oncocytic vacuolated cytology and focal solid ??and microcystic growth were observed in the two dominant tumors. In this clinical ??context, the possibility of acquired cystic disease (end-stage kidney) associated ??renal cell carcinoma entered into the differential diagnosis. However, other classic ??features of ACDRCC are lacking, including dystrophic calcification and sieve-like ??growth. Furthermore, the abundance of papillary architecture, foamy macrophage ??accumulation, IHC profile, and presence of multiple papillary adenomas argue in ??favor of the diagnosis of papillary RCC. To further investigate the molecular DISCUSSION ??profile of this tumor, chromosome SNP microarray testing will be ordered and will be ??reported separately. ?? A/P: [id number] papillary type 2 RCC, OLIVERIO. Will schedule a CT abdomen and CXR in 6 months. documented in this encounter Plan of Treatment Not on file documented as of this encounter Visit Diagnoses Diagnosis Renal cell carcinoma, unspecified laterality documented in this encounter Care Teams Product Strategy Director Relationship Specialty Start Date End Date Carroll Fuentes DO [address] [place] [address] [address] [facility] [address] [place] [address] PCP - General 09/23/11 10/20/22 documented as of this encounter
--- OUTSIDE RECORDS SUMMARY | 2024-04-22 11:08 | XMS_ITS | Encounter Summary ---
Author Organization [facility] Address [facility] [place] [address] Care Team Providers Care Leaf Blender Name Role Phone Carroll Fuentes DO Primary Care Provider [phone] Encounter Details Date Type Department Care Team (Late st Contact Info) Description 07/19/2017 Notes Only Dermatology at [facility] [address] [place] [address] Chanel Smith MD [facility] DR KADIE JORDAN-[place] [address] Social History Tobacco Use Types Packs/Day Years [...] as of this encounter Progress Notes * Kiara Dash - 07/19/2017 1:55 PM EST DERMATOLOGY - [facility] - Intake Note Adama Ram : 1960 Next Scheduled [facility] appt: 07/22/2017 Relevant Medical History: Preferred Name: Skin Type: Yes/No If yes (date, subtype, location, treatment) Melanoma No Dysplastic nevi No SCC Yes 11/2015, left facial, SCC poorly [...] - Cellcept 250 mg po BID Malignancy No Other Yes H/o TBI and seizure disorder Rosacea - metrocream bid prn Transplant team: Dr. Hawkins Otolaryngology team: Dr. Miguel Angel Moreno Bingo Checker: Dr. Sage Procedure Screening Questions: Yes/No If Yes, details Defibrillator/Pacemaker Artificial Joints Heart Valves Blood Thinners Prophylactic Antibiotics Best way to reach you with results Relevant Family History: Yes/No If yes, who (mom/dad/sibling/child) Melanoma SCC BCC Psoriasis or Eczema Social History: Occupation: Marital status: Alcohol use: documented in this encounter Plan of Treatment Not on file documented as of this encounter Visit Diagnoses Not on filedocumented in this encounter Care Teams Leaf Blender Relationship Specialty Start Date End Date Carroll Fuentes DO [address] [place] [address] PCP - General 09/23/11 10/20/22 documented as of this encounter
--- OUTSIDE RECORDS SUMMARY | 2024-04-22 11:08 | XMS_ITS | Encounter Summary ---
[place] [address] Care Team Providers Care Safety Spec Name Role Phone Carroll Fuentes DO Primary Care Provider [phone] Reason for Visit * Reason Onset Date Comments Medication Refill 01/17/2018 Encounter Details Date Type Department Care Team (Late st Contact Info) Description 01/17/2018 Refill [place] [address] Crystal Brown, [facility] Social History Tobacco Use Types Packs/Day Years [...] on filedocumented in this encounter Care Teams Safety Spec Relationship Specialty Start Date End Date Carroll Fuentes DO [address] [place] [address] PCP - General 09/23/11 10/20/22 documented as of this encounter
--- OUTSIDE RECORDS SUMMARY | 2024-04-22 11:08 | XMS_ITS | Encounter Summary ---
Author Organization [facility] Address [facility] [place] [address] Care Team Providers Care Bar Useful Or Busser Name Role Phone AlfredoCarroll allison Primary Care Provider Encounter Details Date Type Department Care Team (Latest Contact Info) Description 08/06/2017 7:46 PM EST - 08/06/2017 11:59 PM [facility] [[email or web address] [place] [address] S/P kidney transplant Discharge Disposition: Home Social History [...] mouth once a week. 0 07/07/2017 03/01/2018 allopurinol (ZYLOPRIM) 100 mg Tablet Take 1 [...] Priority Date/Time Associated Diagnosis Comments TACROLIMUS LEVEL STAT 08/06/2017 2:15 PM EST S/P kidney transplant documented in this encounter Results * Tacrolimus level (08/06/2017 2:15 PM EST) Tacrolimus <3.0 ng/mL [facility] Comment: Trough therapeutic: ??5-15 ng/mL Performed by ultra-performance liquid chromatography tandem mass spectrometry (UPLCMS/MS). This test was developed and its performance characteristics determined by [facility]. It has not been cleared or approved by the FDA. The laboratory is regulated under CLIA as qualified to perform high-complexity testing. This test is used for clinical purposes. It should not be regarded as investigational or for research. Blood specimen (specimen) 08/06/2017 2:15 PM EST 2017 9:55 AM EST Narrative Resulting Agency Comment Spec In Lab Anup Hawkins MD CHEMISTRY ORDERAB LES Performing Organization Address City/State/[facility] Co de Phone Number [facility] [place] [address] documented in this encounter Visit Diagnoses Diagnosis S/P kidney transplant Kidney replaced by transplant documented in this encounter Care Teams Bar Useful Or Busser Relationship Specialty Start Date End Date Carroll Fuentes DO [address] [place] [address] PCP - General 09/23/11 10/20/22 documented as of this encounter
--- OUTSIDE RECORDS SUMMARY | 2024-04-22 11:08 | XMS_ITS | Encounter Summary ---
Author Organization [facility] Address [facility] [place] [address] Care Team Providers Care Reference Services Head Name Role Phone AlfredoCarroll allison DO Primary Care Provider [phone] Encounter Details Date Type Department Care Team (Late st Contact Info) Description 10/19/2017 Telephone [place] [address] Alfonzo Miles MD [facility] [place] [address] Social History Tobacco Use Types Packs/Day Years [...] encounter Miscellaneous Notes * Telephone Encounter - Yolande Singer RN - 10/19/2017 10:45 AM EDT Received a VM message from patient's pharmacy needing clarification with patient's Keppra dose. PerHope (pharmacist- [facility]), patient has been confused with the directions on how to take his Keppra. Per Hope, patient also been noted to be misplacing his medications. Per pharmacist, she wanted tomake that patient has the right instructions before refilling the prescription. Report forwarded to Rachna Oro documented in this encounter Plan of Treatment Not on file documented as of this encounter Visit Diagnoses Not on filedocumented in this encounter Care Teams Reference Services Head Relationship Specialty Start Date End Date Carroll Fuentes DO [address] [place] [address] [address] [facility] [address] [place] [address] PCP - General 09/23/11 10/20/22 documented as of this encounter
--- OUTSIDE RECORDS SUMMARY | 2024-04-22 11:08 | XMS_ITS | Encounter Summary ---
[place] [address] Care Team Providers Care Bindery Production Manager Name Role Phone Carroll Fuentes DO Primary Care Provider [phone] Reason for Visit * Reason Onset Date Comments Medication Refill 09/08/2017 Encounter Details Date Type Department Care Team (Late st Contact Info) Description 09/08/2017 Refill [place] [address] Crystal Brown, [facility] Social History Tobacco Use Types Packs/Day [...] on filedocumented in this encounter Care Teams Bindery Production Manager Relationship Specialty Start Date End Date Carroll Fuentes DO [address] [place] [address] PCP - General 09/23/11 10/20/22 documented as of this encounter
--- OUTSIDE RECORDS SUMMARY | 2024-04-22 11:08 | XMS_ITS | Encounter Summary ---
Author Organization [facility] Address [facility] [place] [address] Care Team Providers Care Basket Grader Name Role Phone Carroll Fuentes DO Primary Care Provider [phone] Encounter Details Date Type Department Care Team (Late st Contact Info) Description 10/28/2017 Orders [place] [address] Jax Mills MD [facility] [place] [address] Renal cell carcinoma, unspecified laterality Social History [...] laterality documented in this encounter Care Teams Basket Grader Relationship Specialty Start Date End Date Carroll Fuentes DO [address] [place] [address] PCP - General 09/23/11 10/20/22 documented as of this encounter
--- OUTSIDE RECORDS SUMMARY | 2024-04-22 11:08 | XMS_ITS | Encounter Summary ---
Author Organization [facility] [place] [address] Care Team Providers Care Rim Fire Priming Operator Name Role Phone AlfredoCarroll allison Primary Care Provider [phone] Reason for Visit * Reason Onset Date Comments Medication Refill 06/28/2017 Encounter Details Date Type Department Care Team (Late st Contact Info) Description 06/28/2017 Refill [place] [address] Crystal Brown CMA Social History Tobacco Use [...] Telephone Encounter - Crystal Brown CMA - 06/28/2017 10:[address] Hawkins; increase sodium bicarbonate to 650 TID, restart losartan 25 mg every morning. documented in this encounter Plan of Treatment Not on file documented as of this encounter Visit Diagnoses Not on filedocumented in this encounter Care Teams Rim Fire Priming Operator Relationship Specialty Start Date End Date Carroll Fuentes DO [address] [facility] [facility] [address] [place] [address] PCP - General 09/23/11 10/20/22 documented as of this encounter
--- OUTSIDE RECORDS SUMMARY | 2024-04-22 11:08 | XMS_ITS | Encounter Summary ---
Author Organization [facility] Address [facility] [place] [address] Care Team Providers Care Software Technical Lead Name Role Phone Carroll Fuentes DO Primary Care Provider [phone] Reason for Visit * Reason Comments Skin Check Encounter Details Date Type Department Care Team (Late st Contact Info) Description 02/24/2018 2:15 PM EDT Office Visit Dermatology at [facility] [address] [place] [address] Chanel Smith MD [facility] DR KADIE [place] [address] History of nonmelanoma skin cancer; Multiple benign nevi; Renal transplant recipient; Rosacea Social History Tobacco Use Types Packs/Day [...] Progress Notes * Chanel Smith MD - 02/24/2018 2:15 PM EDT DERMATOLOGY - PATIENT NOTE [facility] Date of service: 02/24/2018 Adama Ram : 1960 CC: Full skin cancer exam HPI: dAama Ram is a 57 y.o. established patient, last seen by myself on 10/14/17. Here today withthe following concerns: - No specific lesions that are concerning. No spots that are changing colors, itching, or bleeding. Last FSE: 10/2017 Sun protection: Not a whole lot, wears [...] Other Yes H/o TBI and seizure disorder ? Rosacea - metrocream bid prn ? Transplant team: Dr. Hawkins Otolaryngology team: Dr. Miguel Angel Moreno Procedure Screening Questions: ?? Yes/No If Yes, details Defibrillator/Pacemaker no ?? Artificial Joints no ?? Heart Valves no ?? Blood Thinners yes Warfarin 5 mg daily Prophylactic Antibiotics no ?? Best way to reach you with results Cell Okay to leave a detailed message ? Relevant Family History: ?? Yes/No If yes, who (mom/dad/sibling/child) Melanoma no ?? SCC no ?? BCC no ?? Psoriasis or Eczema no ? 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 Marital status: Single Medications: acetaminophen, allopurinol, cholecalciferol (Vitamin D3), dilTIAZem, docusate sodium, hydrALAZINE, levETIRAcetam, levothyroxine, losartan, metoprolol tartrate, metroNIDAZOLE, multivitamin, mycophenolate, pantoprazole, sodium bicarbonate, tacrolimus, and [...] of the findings listed below. Notable findings/Assessment/Plan: 1. 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 No cervical or clavicular LAD - NER - Reviewed importance of??sun protection 2. Medium Density Benign nevi - Scattered medium brown macules and papules on the trunk and extremities with reassuring pigment pattern (patchy reticular) on dermoscopy. - Reassured of benign appearance on exam today. ?? 3. Elevated skin cancer risk 2/2 renal transplant in 2002 - - Reviewed importance of??sun protection 365 days per day (hats/shade/clothing) and sunscreen recommendations??(SPF30, UVA/UVB broad spectrum coverage, reapply every 2 hrs if still outside).?? Discussed??warning signs of skin cancer, ABCDEs of melanoma.?? 4. Rosacea - papulopustular type - few pustules on the face in a background of erythema - Continue Rx: Metrocream BID as needed RTC: August 2018 for FSE or PRN if symptoms worsen or persist. Note initiated by Mary Kay Kim CMA. Mary Kay Kim CMA has performed the documentation for this encounter in the presence of and actingas a scribe for Dr. Smith. I performed the above scribed service and agree with the accuracy of the documentation in this encounter. Reviewed and signed by: Chanel Smith MD Dermatology [facility] documented in this encounter Plan of Treatment Not on file documented as of this encounter Visit Diagnoses Diagnosis History of nonmelanoma skin cancer Personal history of other malignant neoplasm of skin Multiple benign nevi Benign neoplasm of skin, site unspecified Renal transplant recipient Rosacea documented in this encounter Care Teams Software Technical Lead Relationship Specialty Start Date End Date Carroll Fuentes DO [address] [place] [address] PCP - General 09/23/11 10/20/22 documented as of this encounter
--- OUTSIDE RECORDS SUMMARY | 2024-04-22 11:08 | XMS_ITS | Encounter Summary ---
[place] [address] Care Team Providers Care Senior Chemical Engineer Name Role Phone Carroll Fuentes DO Primary Care Provider Reason for Visit * Reason Onset Date Comments Medication Refill 02/28/2018 Encounter Details Date Type Department Care Team (Late st Contact Info) Description 02/28/2018 Refill [place] [address] Crystal Brown, [facility] Social History Tobacco Use Types Packs/Day [...] on filedocumented in this encounter Care Teams Senior Chemical Engineer Relationship Specialty Start Date End Date Carroll Fuentes DO [address] [place] [address] PCP - General 09/23/11 10/20/22 documented as of this encounter
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
--- OUTSIDE RECORDS SUMMARY | 2024-04-22 11:08 | XMS_ITS | Encounter Summary ---
Author Organization [place] [address] Care Team Providers Care [employer]ding [employer] Name Role Phone AlfredoCarroll geiger Primary Care Provider Encounter Details Date Type Department Care Team (Latest Contact Info) Description 01/20/2018 9:00 PM EDT - 01/20/2018 11:59 PM EDT Hospital [place] [address] S/P kidney transplant Discharge Disposition: Home Social [...] Sig Dispensed Refills Start Date End Date allopurinol (ZYLOPRIM) 100 mg Tablet Take 1 [...] Date/Time Associated Diagnosis Comments TACROLIMUS LEVEL STAT 01/21/2018 3:18 PM EDT S/P kidney transplant documented in this encounter Results * Tacrolimus level (01/21/2018 3:18 PM EDT) Tacrolimus 4.3 ng/mL [facility] Comment: Trough therapeutic: ??5-15 ng/mL Performed by ultra-performance liquid chromatography tandem mass spectrometry (UPLCMS/MS). This test was developed and its performance characteristics determined by [facility]. It has not been cleared or approved by the FDA. The laboratory is regulated under CLIA as qualified to perform high-complexity testing. This test is used for clinical purposes. It should not be regarded as investigational or for research. Blood specimen (specimen) 01/21/2018 3:18 PM EDT 01/24/2018 7:52 AM EDT Narrative Resulting Agency Comment Spec In Lab Anup Hawkins MD CHEMISTRY ORDERAB LES [facility] [place] [address] documented in this encounter Visit Diagnoses Diagnosis S/P kidney transplant Kidney replaced by transplant documented in this encounter Care Teams Wel[employer] Relationship Specialty Start Date End Date Carroll Fuentes DO [address] [place] [address] PCP - General 09/23/11 10/20/22 documented as of this encounter
--- OUTSIDE RECORDS SUMMARY | 2024-04-22 11:08 | XMS_ITS | Encounter Summary ---
Author Organization [facility] Address [facility] [place] [address] Care Team Providers Care Telecommunications Project Manager Name Role Phone AlfredoCarroll allison Primary Care Provider [phone] Reason for Visit * Reason Comments Trauma [...] Expiration Date Visits Re quested Visits Authorized [id number] 1 1 Encounter Details Date Type Department Care Team (Late st Contact Info) Description 04/06/2018 1:45 PM EDT - 04/06/2018 5:03 PM EDT [place] [address] Lida Peter MD [facility] [place] [address] @REPAIR, 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 skilled nursing current use of immunosuppressive drug ??? H/O [...] epilepsy, and prior TBI who presents to [facility] s/p LUE bleeding with PEA arrest. Description [...] Pt intubated in field. Pt taken to [facility], where second tourniquet applied and pt received 6U PRBC. Transferred to [facility] for further care. Of note, per Dr. [...] Studies: none Discharge Conditions/Prognosis: Good [facility] [address] [place] [id number] Discharge Medications: Your Medications New Medications Dose [...] draw weekly CBC/CMP with results sent to [facility] Infectious disease. See wound care instructions below. [...] For any problems or questions please call [phone] YEIMY Fallon, timber framer Nurse Clinician For issues on weeknights after 5pm and weekends please call [phone] and ask for the Vascular Fellow nutritionalist. General Instructions Plastic Surgery Wound Care Instructions [...] about scheduling, please contact our administrative officesat [phone] For clinical questions, please call our nurses at [phone] Both offices are open Wednesday thru Wednesday 8a - 5p. With emergencies after hours, call the hospital sweater operator at [phone] and ask for the Plastic Surgery Resident nutritionalist. Future Appointments and Orders Future Appointments and Orders Future Appointments Provider Department Dept Phone 05/17/2018 10:20 AM Laina Disla APRN Plastic Surgery at [place] Arrive at: Allocation Analyst Area 4M [phone] 05/17/2018 11:30 AM Kurt Medina MD Infectious Disease at [place] Arrive at: Allocation Analyst Area 5C [phone] 05/17/2018 12:30 PM Nilda Minaya, timber framer Surgery at [place] Arrive at: Allocation Analyst Area 3V [phone] 05/27/2018 10:15 AM Lida Peter MD Vascular Surgery at [place] Arrive at: Allocation Analyst Area 3V [phone] 08/18/2018 10:30 AM Chanel Smith MD Dermatology at [facility] [address] [phone] Future Orders Complete By Expires OPAT: Order / Recommendation for Post Discharge IV Antibiotic Management [SAM930 CPT(R)] As directed Process Instructions: If no progress note charted, please enter Clinical details in comments. Scheduling Instructions: Comments: Please Fax all results to: OPAT Program Infectious Disease Section [facility], [place] [address] FAX: Line care instructions per [facility] OPAT Program protocol. After hours, please contact the Infectious Disease Physician nutritionalist at . If this order was signed greater than 72 hours prior to [facility] discharge, please call to confirm the accuracy [...] about scheduling, please contact our administrative officesat [phone] For clinical questions, please call our nurses at [phone] Both offices are open Wednesday thru Wednesday 8a - 5p. With emergencies after hours, call the hospital sweater operator at [phone] and ask for the Plastic Surgery Resident nutritionalist. * Patient Instructions* Nilda Minaya RN - [...] For any problems or questions please call [phone] YEIMY Fallon, timber framer Nurse Clinician For issues on weeknights after 5pm and weekends please call [phone] and ask for the Vascular Fellow nutritionalist. documented in this encounter Medications at Time [...] 1960 Admit date: 04/06/2018 Attending Physician: Chase lOvera MD Pt off unit in own clothes with belongings. DC packet sent with ambulance staff. Report called to facility. Questions encouraged and answered. VSS. A+O. * Padmini Ruiz RN - 05/04/2018 11:30 AM EDT Pt accepted bed offer at [facility] for transfer today. Pt qualifies for ambulance transfer due to being on bed alarm while here, being impulsive and history of TBI. Pt will be transferred at Noon via [facility]. I called pt brother Lucas to inform. He was with JANICE Guzman from [place] [facility]. Our SW Bia spoke with Lucas as well about continuing the LT Medicaid application process. Nurse to Nurse report number given to pt's staff nurse Danny. Discharge envelope started; still needed discharge summary, medication sheets and prescription added. Please call CM if needed for further pt discharge needs. Padmini Ruiz, RN [phone] * Reynaldo Jade - 05/04/2018 8:58 AM EDT Office of Care Management/Pocket Machine Operator Patient Name: Christy Ambrose : 1960 Patient has been offered a SNF bed at [facility] for today, 05/04/18 [facility] arranged for a 12:00 pm transport. Ambulance will need: Medicare ambulance form completed and signed (MD or Ironworker Foreman RN/VETERINARY PHARMACOLOGIST) Copy of patient demographics [place] [facility] DNR/DNI order, if active No MD to MD report necessary Please call Nursing Report to [phone], ask for furniture associate. Info to accompany patient: Narcotic Prescriptions Copies of Medication Administration Records and IV sheets for past 10 days. Plan: Pocket Machine Operator will be available to the patient and Ironworker Foreman-RN and/or Social Workerfor further assistance. Patient will be discharged to: [address] [address] Reynaldo Jade, Pocket Machine Operator * Chasidy Monahan PA - 05/04/2018 7:47 [...] AM Laina Disla APRN [facility] 4M [facility] 05/17/2018 11:30 AM Kurt Medina MD Le[facility] Infec 5C [facility] 05/17/2018 12:30 PM Nilda Minaya RN Leb V Surg [facility] 08/18/2018 10:30 AM Chanel Smith MD [facility] PANCHITO Rios Pager: [phone] * Nayeli Wilde RN - 05/03/2018 8:29 PM EDT Images from the original note were not included. PRN dressing change Dressing prior to change Dressing after change * Natalya Wan MSW - 05/03/2018 5:01 PM EDT VETERINARY PHARMACOLOGIST and DONAVAN Chaidez met with Christy, his mother Ilda (HDPOA), and his brother Lucas (HDPOA and FPOA). All three parties accepted a bed offer at [facility] for rehab and hope thatif a bed becomes available at [facility] Christy can be transferred. Family to continue tocomplete [place] Choices for Care and work on fpc supportive living with [facility] when mother goes to assisted living. * Nicole Hamilton LD - 05/03/2018 2:04 PM EDT Nutrition Progress Note Christy Ambrose is a 57 y.o. male Reason for intervention: Follow up Nutrition Recommendations: Could liberalize diet to [facility]/Cardiac Continue to monitor potassium trends Monitor weight [...] N18.4 ??? 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 termite helper current use of immunosuppressive drug Z79.899 [...] encounter: 84.3 kg (185 lb 13.6 oz). [place] Body Weight (IBW): [place] body weight: 73.2 kg (161 lb 5.4 [...] intakes. Potassiumnormal, could consider liberalizing diet to [facility]/Cardiac. Patient denies any questions/concerns rega rding current [...] Creatinine 2.66 05/01 040 WBC 5.0 05/01 040 BUN 36 05/01 040 Antimicrobials Medication Dose/Rate, Route, Frequency Last Action [...] by primary team Javier Nolan MD Pager: [phone] * Tristin Marrero MD - 05/03/2018 7:40 [...] ongoing. Angelina Marrero Vascular Surgery, PGY3 Pager #[phone] * Tristin Marrero MD - 05/02/2018 12:35 [...] 3 wbc, hgb, hct plt Recent Labs 05/02/180 05/01/18 0400 04/30/18 0255 WBC 4.8 5.0 5.2 HGB 8.2* 8.2* 7.9* HCT 24.6* 25.6* 24.3* PLATELET 168 192 186 Last 3 Lytes Recent Labs 05/02/18 0320 05/01/18 0400 04/30/18 0255 NA 135 134* 135 K 4.3 3.9 4.5 CL 103 101 100 CO2 19* 19* 21* BUN 38* 36* 39* CREATININE 2.73* 2.66* 2.94* Last Ca, Mg, Phos Recent Labs 05/02/18319 CALCIUM 7.7* Last 3 Coags No results [...] recommendations. Angelina Marrero Vascular Surgery, PGY3 Pager #[phone] * Chasidy Monahan PA - 05/02/2018 9:16 [...] WBC 5.0 05/01 400 BUN 36 05/01 040 Antimicrobials Medication Dose/Rate, Route, Frequency Last Action [...] team PANCHITO Rios Plastic Surgery Team Pager: [phone] * Natalya Jacobsen MD - 05/01/2018 9:15 [...] arrest. Patient continues to make steady progress. KEISHA with large wound currently being managed with [...] Aditi Mccollum MD Plastic Surgery Resident P# [phone] * Natalya Jacobsen MD - 04/30/2018 9:23 [...] 2.80* Last Ca, Mg, Phos Recent Labs 04/30/18254 CALCIUM 8.1* Last 3 Coags No results [...] 99 04/28 1500 Most Recent Creatinine 2.94 10/20 0255 WBC 5.2 04/30 255 BUN 39 04/30 [...] Aditi Mccollum MD Plastic Surgery Resident P# [phone] * Natalya Jacobsen MD - 04/29/2018 2:00 [...] Recent Labs 04/29/18 0540 04/28/18 0440 04/27/18 044 NA 136 133* 132* K 4.9 4.9 [...] Wan MSW - 04/29/2018 11:21 AM EDT VETERINARY PHARMACOLOGIST spoke with patients mother and [facility] [place] [facility] VETERINARY PHARMACOLOGIST who are following up today by completingChoices for Care application. Mother told VETERINARY PHARMACOLOGIST patient was fully independent until this event. [...] 10:30 AM NURSE, PLASTIC SURGERY [facility] [address] [place] [address] 05/02/2018 12:30 PM Natalya Ojeda MD Leb V Surg [facility] 08/18/2018 10:30 AM [facility] Plastic surgery team pager: [phone] 04/29/2018 6:48 AM * Kumar Schilling - 04/28/2018 2:37 PM EDT Narrative: Visited to introduce and assess acceptance of Scrap Iron Loader services. Pt was awake, alert, oriented and [...] Provided emotional, spiritua support and encouraging presence. Scrap Iron Loader services accepted.Conversation to build trusting relationship.Provided pastoral presence. Follow up:yes Time: 20 Mins * Natalya Jacobsen MD - 04/28/2018 2:12 PM EDT Vascular Surgery Progress Note Patient ID Christy J Arnol is a 57 y.o. male with w/ [...] 10:30 AM NURSE, PLASTIC SURGERY [facility] [address] [place] [address] CLIN 05/02/2018 12:30 PM Natalya Ojeda MD Leb V Surg [facility] 08/18/2018 10:30 AM Chanel Smith MD [facility] PANCHITO Rios Plastic surgery team pager: [phone] 04/28/2018 8:12 AM Attending: Plan discussed and [...] Danielle Peoples, DO Infectious Disease Fellow Pager [phone] Associated attestation - Krut Medina MD - 04/28/2018 8:29 AM EDT [...] team PANCHITO Rios Plastic surgery team pager: [phone] 04/27/2018 8:46 AM Attending: Plan discussed and [...] stable - UOP adequate Thelma Solitario Pager: [phone] 04/27/18 * Domi Norman, RN - 04/26/2018 [...] Note Recommendation/Plan: Diet at MD discretion, consider [facility] diet with K restriction May liberalize to [facility] if K is WNL Appreciate updated weights [...] completed shifts: In: 2009 [P.O.:1630; I.V.:379] Out: 3206 [Urine:3207] Estimated body mass index is 27.21 [...] CALCIUM 8.2* Last 3 Coags Recent Labs 04/20/18547 PT 11.6 INR 1.0 PTT 27 Microbiology - Rare Corynebacterium species, sensitivities pending. New Studies None Assessment & Plan Christymaty [...] / appropriate for Occupational Therapy Services. Pager [phone] NICKY Irizarry/John Occupational Therapy Rehabilitation Department * [...] team PANCHITO Rios Plastic surgery team pager: [phone] 04/26/2018 8:01 AM Attending: Pt seen and [...] will follow. Please call with questions Danielle Peoples, Infectious Disease Fellow Pager [phone] Associated attestation - Kurt Medina MD - [...] OR tomorrow - no need to hold [facility] PANCHITO Rios Plastic surgery team pager: [phone] 04/25/2018 1:10 PM Attending: Plan discussed and [...] 283 317 Last 3 Lytes Recent Labs 04/25/1851704/24/187 04/23/18 0456 NA 138 138 137 K 5.2* [...] 3 wbc, hgb, hct plt Recent Labs 04/24/1841604/23/18 0456 04/22/18 0534 WBC 4.7 5.2 5.5 HGB 7.9* 8.0* 8.0* HCT 24.6* 24.3* 24.8* PLATELET 283 317 289 Last 3 Lytes Recent Labs 04/24/18416 04/23/18 0456 04/22/18 0534 NA 138 137 [...] 27 27 27 Microbiology ?? Tissue culture [[id number]] (Abnormal) Collected: 04/19/18924 ? Lab Status: Preliminary [...] - skin grafting Wednesday - NPO at [facility] Wednesday night - no need to hold [facility] Camden Sol MD Plastic Surgery, PGY-5 04/24/2018 [...] 27 27 27 Microbiology ?? Tissue culture [[id number]] (Abnormal) Collected: 04/19/18924 ? Lab Status: Preliminary result Specimen: Skin Updated: 04/20/18 075 ? Tissue Culture No growth to date. [...] O: Telephone call received from Rachna Muro ([place] [facility]) who reports that patient's Mother is already assigned to worker Lalitha. Rachna suggested I call Mother and remind her that she has made contact with the agency. Rachna cannot release any information to [facility] without a signed release. Forest Engineer attempted to call Mother today, no answer, [...] PTT 27 27 27 Microbiology Tissue culture [[id number]] (Abnormal) Collected: 04/19/18924 ? Lab Status: Preliminary [...] / appropriate for Occupational Therapy Services. Pager [phone] NICKY Irizarry/John Occupational Therapy Rehabilitation Department * [...] PTT 27 27 27 Microbiology Tissue culture [[id number]] (Abnormal) Collected: 04/19/18924 ? Lab Status: Preliminary [...] continue current immunosuppression regimen. Appreciate input. [facility] Vascular Surgery * Kelsey Tyler, [...] N18.4 ??? 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 termite helper current use of immunosuppressive drug Z79.899 [...] encounter: 86.2 kg (190 lb 0.6 oz). [place] Body Weight (IBW): [place] body weight: 73.2 kg (161 lb 5.4 [...] kg (11 lbs). JERICHO Lombardi Beeper #: [phone] * Karis Mejia MSW - 04/20/2018 11:29 AM EDT Discharge Planning: O: Telephone call to patient's Mother Ilda who reports that she was unable to connect with her local [place] [facility]. Unfortunately I believe that Ilda may be overwhelmed by patient's admission and events leading up to hospitalization. Ilda reports that there are repairs that need to be completed in the family home and that a staff member at [facility] (she cannot identify) has told her that patient can not return home. I offered support to Ilda and suggested that I would contact the [place] [facility] and ask them to outreach to her. She was appreciative. Telephone call to Rachna Muro ([facility] [place] [facility] [phone]), voice mail message relaying above information. P: Await call back from Rachna, continue to liaison with Mother and offer support around discharge planning. 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, suspected DVT on anticoagulation therapy with the Coumadin transferred from [facility] to [facility] on 04/06/18 for hemorrhagic shock status post [...] 302 274 305 Chemistry: Recent Labs 04/20/1848 04/19/1825 04/18/18525 NA 138 137 135 K 4.7 4.7 4.3 CL 104 104 104 CO2 21* 21* 20* BUN 33* 35* 36* CREATININE 2.38* 2.12* 2.30* GLUCOSE 103 100 103 Recent Labs 04/20/1848 04/19/1825 04/18/1852504/06/18173909/23/17 1101 CALCIUM 8.0* 8.0* 8.3* < > 6.7* < > 8.4* MAGNESIUM -- -- -- -- 0.60* -- 0.76 PHOS -- -- -- -- 3.3 -- 3.9 < > = values in this interval not displayed. LFT's: Recent Labs 04/06/18173915/18 1101 BILITOT 0.3 0.4 ALBUMIN 2.3* 4.3 [...] hypoxic ischemic injury. ?? IMPRESSION/ RECOMMENDATIONS: Christy Ginna Ambrose is a 57 y/o M with [...] -2.3 -2.6 .He also had laparoscopic left rincon nephrectomy due to papillary renal cell ca [...] chronic kidney disease. -No acute indication for MASTER WELDER ,,Strict intake and out put monitoring,Daily weights,Renal [...] 3 wbc, hgb, hct plt Recent Labs 04/20/1854704/19/1825 04/18/18525 WBC 7.3 5.5 6.4 HGB 7.8* 7.7* 8.0* HCT 23.7* 23.3* 24.6* PLATELET 302 274 305 Last 3 Lytes Recent Labs 04/20/1848 04/19/1825 04/18/18 05 NA 138 137 135 K 4.7 4.7 4.3 CL 104 104 104 CO2 21* 21* 20* BUN 33* 35* 36* CREATININE 2.38* 2.12* 2.30* Last Ca, Mg, Phos Recent Labs 04/20/18547 CALCIUM 8.0* Last 3 Coags Recent Labs 04/20/1848 04/19/1862404/18/18525 PT 11.6 11.5 11.2 INR 1.0 1.0 1.0 PTT 27 27 27 Microbiology Tissue culture [[id number]] (Abnormal) Collected: 04/19/18924 ? Lab Status: Preliminary [...] regimen. Angelina Marrero Vascular Surgery, PGY3 Pager #[phone] * Karuna Nagel, RN - 04/19/2018 10:28 [...] Intake/Output Summary (Last 24 hours) at 04/19/18 0654 Last data filed at 04/19/18 0625 Gross [...] hgb, hct plt Recent Labs 04/19/1862404/18/18 0526 04/17/18 044 WBC 5.5 6.4 5.6 HGB 7.7* 8.0* [...] CALCIUM 8.3* Last 3 Coags Recent Labs 04/19/1862404/18/18 0526 04/17/18 0443 PT 11.5 11.2 11.7 INR 1.0 1.0 [...] today. Angelina Marrero Vascular Surgery, PGY3 Pager #[phone] * Selma Fontanez LAST SORTER - 04/18/2018 2:14 PM EDT Physical Therapy Note Patient having bedside vac change with pain meds. Will follow up with patient tomorrow. Selma Fontanez PTA Pager# [phone] * Tristin Marrero MD - 04/18/2018 12:22 [...] 1mg evening and Cellcept -250 BID Angelina Marrero p. [phone] 04/18/2018 12:22 PM * Karine Carroll [...] [97 %-99 %] 04/16 701 - 04/17 07 In: 3618.8 [P.O.:1910; I.V.:183.8] Out: 2200 [Urine:2200] [...] kidney disease. - No acute indication for MASTER WELDER, Strict intake and out put monitoring, Daily [...] clean. Neuro: Grossly intact, nonfocal. Recent Labs 04/16/1841604/15/1845604/15/1844604/14/18 0548 WBC 5.2 -- 5.0 5.4 HGB 7.9* -- 7.5* 7.5* HCT 24.9* -- 23.3* 22.9* PLATELET 288 -- 224 208 PT 11.5 12.9* -- 15.1* INR 1.0 1.2 -- 1.4 PTT 27 27 -- 28 Recent Labs 04/16/1841604/15/1844604/14/18 0548 NA 135 138 138 K 4.0 4.6 [...] kidney disease. - No acute indication for MASTER WELDER, Strict intake and out put monitoring, Daily [...] N18.4 ??? 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 termite helper current use of immunosuppressive drug Z79.899 [...] by Miguel Angel Moreno MD at [facility] MAIN OR ??? PRO DECOMPRESS FOREARM, BRACH ART EXPLOR Left 04/06/2018 FASCIOTOMY, FOREARM, WITH BRACHIAL ARTERY EXPLORATION (WRVU 8.41) performed by Lida Peter MDat [facility] MAIN OR ??? PRO DIRECT REPAIR RUPTURED ANEURYSM, AXILLO-BRACHIAL ARM INCIS Left 04/06/2018 @REPAIR, RUPTURED AXILLARY OR BRACHIAL ARTERY ANEURYSM BY ARM INCISION (WRVU *) performed by Lida Peter MD at [facility] MAIN OR ??? PRO EXC PAROTD, TOTAL, UNILAT RAD NECK Left 02/05/2016 @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, TOTAL, WITH UNILATERAL RADICAL NECK DISSECTION performed by Miguel Angel Moreno MD at [facility] MAIN OR ??? PRO EXC SKIN MALIG 3.1-4CM FACE, FACIAL Left 02/05/2016 EXC MALIGNANT LESION, 3.1 TO 4.0CM, FACE performed by Miguel Angel Moreno MD at [facility] OR ? ? PRO EXC SKIN MALIG >4CM TRUNK, ARM, LEG 04/19/2012 EXC MALIGNANT LESION, MICHAEL > 4.0CM, TRUNK performed by SABRINA MEDRANO at [facility] OR ??? PRO LAP, RADICAL NEPHRECTOMY Left 05/31/2017 @LAPAROSCOPY, RADICAL NEPHRECTOMY (WRVU 25.06) performed by Jax Mills MD at [facility] OR ??? PRO REBL VES GRAFT, UP EXTREM Left 04/06/2018 REPAIR BLOOD VESSEL WITH GRAFT OTHER THAN VEIN, UPPER EXTREMITY (WRVU 15.83) performed by Lida Peter MD at [facility] MAIN OR ??? PRO RELIEVE PRESSURE ON NERVE(S) Left 04/06/2018 (MSURG) CARPAL TUNNEL (WRVU 4.82) performed by Hay Sparks MD at [facility] MAIN OR ??? PRO REPAIR INTERMEDIATE S/A/T/E 2.6-7.5 CM 04/19/2012 REPAIR INTERMEDIATE WOUND, (NO HANDS OR FEET) 2.6 TO 7.5CM, UPPER EXTREMITY performed by SABRINA MEDRANO at [facility] OR ? ? PRO REPAIR INTERMEDIATE S/A/T/E > 30.0 CM Left 04/14/2018 REPAIR INTERMEDIATE WOUND, (NO HANDS OR FEET) >30.0CM, UPPER EXTREMITY (WRVU 5) performed by Yimi Easton MD at [facility] MAIN OR ??? PRO REVISE MEDIAN N/CARPAL TUNNEL SURG Left 04/06/2018 MEDIAN NERVE DECOMPRESSION (CARPAL TUNNEL RELEASE) (WRVU 4.97) performed by Lida Peter MD [facility] MAIN OR ? ? PRO SPLIT GRFT, HEAD, FAC, HAND, FEET <100SQCM N/A 02/20/2016 SPLIT THICKNESS SKIN SPLIT GRAFT,100SQ CM OR LESS, NECK performed by Miguel Angel Moreno MD at [facility] MAIN OR ??? PRO UPPER GI ENDOSCOPY, BIOPSY N/A 05/13/2017 EGD WITH BIOPSY (WRVU 2.49) performed by Aditya Barrera MD at [facility] ENDOSCOPY ??? PRO VASCULAR SURGERY PROCEDURE UNLIST Left 11/20/2015 LIGATION\REPAIR AV FISTULA performed by Camilo Ireland MD at [facility] MAIN OR ??? PRO VASCULAR SURGERY PROCEDURE UNLIST Left 11/20/2015 EXCISION VEIN FROM HAND performed by Camilo Ireland MD at [facility] MAIN OR ??? US RENAL TRANSPLANT BIOPSY 12/31/2010 Reason for Nutrition Intervention: Initial assessment Diet Order: Regular Appetite: Good Food allergies: None documented Chewing/Swallowing difficulty: none, cleared for regular diet and thin liquids per DIGITAL MEASUREMENT ADVISOR Estimated body mass index is 28.91 kg/(m^2) [...] being worked up for possible intracranial event. DIGITAL MEASUREMENT ADVISOR cleared patient for regular diet and thin liquids. Patient has been tolerating this well, but per RN this morning he did not eat d/t nausea. Thiscould be attributed to pain meds on empty stomach. DIGITAL MEASUREMENT ADVISOR and OT in with patient at time of attempt this morning, will check back in afternoon. Patient seen this afternoon having eaten ~50% of his lunch, appeared to still be eating as well. Hehas difficulty recalling his diet LAST SORTER. He is not sure if he has [...] [94 %-100 %] 04/14 701 - 04/15 07 In: 2540.8 [P.O.:680; I.V.:1709.8] Out: 1225 [Urine:1225] [...] kidney disease. - No acute indication for MASTER WELDER, Strict intake and out put monitoring, Daily [...] Birthdate: 1960 Admit date: 04/06/2018 Attending Physician: Chsae Olvera MD ID: Christy Ambrose is a [...] 94 % SpO2: [93 %-99 %] 04/13 07 - 04/14 0700 In: 1454 [P.O.:560; I.V.:737] [...] clean. Neuro: Grossly intact, nonfocal. Recent Labs 04/14/1848 04/13/1881304/12/18 0840 WBC 5.4 5.3 5.0 HGB 7.5* 7.8* 7.9* HCT 22.9* 23.3* 24.0* PLATELET 208 190 183 PT 15.1* 17.3* 20.0* INR 1.4 1.6 1.8 PTT 28 29 32 Recent Labs 04/14/1854704/13/1814 04/12/18 0840 NA 138 138 140 K [...] kidney disease. - No acute indication for MASTER WELDER, Strict intake and out put monitoring, Daily weights, Renal dosing for medications - Hypertension: was on hydralazine 50 mg BID,diltiazem 120 mg XT daily ,metorpolol 50 mg TID,losartan 25 mg daily at home.Will recommend to restart his home meds and continue holding losartan in the setting of TRISTIAN. Tim Ogden MD * Karis Mejia, VETERINARY PHARMACOLOGIST - 04/13/2018 1:17 PM EDT O: Requested by CANDY to continue to communicate with Mother re discharge planning. Forest Engineer spoke with Mother today who is glad to hear that patient is progressing. Mother has an appointment on 04/15/18 with the [place] [facility] to discuss [place] LTC. She also had questions about filing for SSDI for patient. Forest Engineer suggested that she contact with [facility] officeand make an appointment to speak with someone there. Forest Engineer also indicated that Mother should take along supportive friend as there can be a lot of information to digest and understand. A: Mother remains pleasant and actively engaged in treatment planning for patient. She is hopeful that he will be able to complete his rehab stay at [facility] but understands that he may need to go farther from home. P: Will continue to follow with team, liaison with Mother. Available to assist as needed/requested. 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 -No acute indication for MASTER WELDER ,,Strict intake and out put monitoring,Daily weights,Renal [...] PTT 29 32 37 Recent Labs 04/13/18 0804/12/18 0840 04/11/18 0555 NA 138 140 144 [...] kidney disease. - No acute indication for MASTER WELDER, Strict intake and out put monitoring, Daily weights, Renal dosing for medications - Hypertension: was on hydralazine 50 mg BID,diltiazem 120 mg XT daily ,metorpolol 50 mg TID,losartan 25 mg daily at home.Will recommend to restart his home meds and continue holding losartan in the setting of TRISTIAN. Tim Ogden MD * Ajay Alexandre - 04/12/2018 2:08 PM EDT Scrap Iron Loader Encounter Note Patient Name: Christy Ambrose : [id number] MR#: [id number] Admit Date: 04/06/2018 12:58 PM Hospital Day 6 days Narrative: Seen on manual writer Rounds. Sitting in recliner. Cordial. Expression bemused, [...] chronic kidney disease. -No acute indication for MASTER WELDER, Strict intake and out put monitoring, Daily weights, Renal dosing formedications - Hypertension: was on hydralazine 50 mg BID,diltiazem 120 mg XT daily ,metorpolol 50 mg TID,losartan 25 mg daily at home.Will recommend to restart his home meds and continue holding losartan in the setting of TRISTIAN. 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 -No acute indication for MASTER WELDER ,,Strict intake and out put monitoring,Daily weights,Renal [...] 04/11/2018 Neurology resident, PGY-3 Vascular Neurology Pager [phone] Associated attestation - Tim Collins MD - [...] treatment session. Kelsey Hua, PT Pager # [phone] PT Evaluation Code Rationale: ?? Diagnosis [...] N18.4 ??? 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 termite helper current use of immunosuppressive drug Z79.899 [...] arrival Pertinent History of Current Problem Christy Chacko [...] cook, clean independently. 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 pt usually [...] Assessment/Treatment Assistive Device (Bed Mobility) bed rails [id number] Gosper (Bed Mobility) minimum assist (75% patient effort) Comment (Bed Mobility) HOB elevated Transfer Assessment/Treatment Gosper (Sit-Stand Transfers) moderate assist (50% patient effort);verbal cues required;2 person assist required Gosper (Stand-Sit Transfers) moderate assist (50% patient effort);verbal cues required;2 person assist required Fhy-Gaunm-Wkv Assistive Device (Transfers) rolling walker (initially transfered mod x2 w/o AD, poor balance) Safety Issues (Transfers) loses balance backward (lost balance forward initially) Impairments (Transfers) balance impaired;strength decreased;pain Comment (Transfers) cues for hand placement on RW Gait Assessment/Treatment Gosper (Gait) moderate assist (50% patient effort);verbal cues [...] good balance Sitting Balance: Dynamic fair balance Qwz-zf-Cefre Balance poor balance Standing Balance: Static poor [...] to sit/sit to sidelying Bed Mobility Goal, Gosper Level independent Gait Training Goal Gait Training Goal, Date Established 04/11/18 Gait Training Goal, Time to Achieve 2 wks Gait Training Goal, Gosper Level independent Gait Training Goal, Assist Device other (see comments) (LRD ) Gait Training Goal, Distance to Achieve 150 ft Transfer Training Goal Transfer Training Goal, Date Established 04/11/18 Transfer Training Goal, Time to Achieve 2 wks Transfer Training Goal, Activity Type all transfers Transfer Train Goal, Gosper Level independent Transfer Training Goal, Assist Device [...] treatment session. Kelsey Hua PT Pager # [phone] * Karis Mejia VETERINARY PHARMACOLOGIST - 04/11/2018 1:15 PM EDT Discharge Planning: O: Requested by CANDY-RN to contact Mother re her concerns around housing. Forest Engineer spoke with Mother who relayed that she [...] and plans to speak with her local [place] on Aging. Forest Engineer suggested to Mother that she begin to have a conversation with them around [place] as that would be the payor source for patient. Mother is also interested in finding out what the discharge plan will be. Forest Engineer relayed that a CM-RN would be in [...] 04/06/2018 Attending Physician: Chase Olvera MD ID: Chirsty Ambrose is a 57 y.o. male w/ [...] [92 %-96 %] 04/10 0701 - 04/11 07 In: 2602 [P.O.:1080; I.V.:1422] Out: 2675 [Urine:2675] [...] needed); will follow up with Transplant Nephrology/[facility] today Tim Ogden MD * Odalis [...] MD/NEHA, PGY-5 Section of Vascular Surgery, Pager [phone] * iTm Ogden MD - 04/10/2018 10:57 AM EDT [...] a free and total Dilantin level on April 11. We willdiscontinue the video EEG [...] 04/09/2018 Neurology resident, PGY-4 Vascular Neurology Pager [phone] ... I saw and evaluated the patient [...] MD/NEHA, PGY-5 Section of Vascular Surgery, Pager [phone] * Alfonzo Miles MD - 04/08/2018 4:56 [...] initiated. Alfonzo Miles MD Department [place] [address] Pager: [phone], #[phone] Email: [email or web address] * Sharmin Barth RN - 04/08/2018 12:34 PM EDT [facility]SE TEAM NOTE Name: Christy Ginna Ambrose Age: 57 y.o. Sex; Male Date of : 1960 Responding Members: BENJAMIN ROGEL RCP Date/Time of Admission: 04/06/2018 12:58 PM Unit/Room: 427 4W Service: Vascular sx Attending: Quin Peter Disassembler present? Yes Attending Contacted? Yes Time Activated: [...] f/u Wednesday as appropriate. Negrita Arnold OT #[phone] * Veronica Holt RN - 04/08/2018 12:09 [...] any questions. 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, suspected DVT on anticoagulation therapy with the Coumadin transferred from [facility] to [facility] on 04/06/18 for hemorrhagic shock status post [...] Latest Ref Range: Clear Hazy (A) Spec [place] UA Latest Ref Range: 1.002 - 1.030 [...] can not be managed medically needing emergent MASTER WELDER.No indication for dialysis/CVVH -Had good U.out put [...] tolerated to keep BP stable .currently on [id number] mg BID and hydralazine,labetolol IV prn #5.Ruptured [...] vascular,neurology teams Radha Hughes MD Nephrology Fellow #[phone] * Veronica Holt RN - 04/08/2018 9:47 [...] HTN, epilepsy,and prior TBI who presents to [facility] s/p LUE bleeding with PEA arrest. Description [...] Pt intubated in field. Pt taken to [facility], where second tourniquet applied and pt received 6U PRBC. Transferred to [facility] for further care. ?? Of note, per [...] by Miguel Angel Moreno MD at [facility] MAIN OR ??? PRO DECOMPRESS FOREARM, BRACH ART EXPLOR Left 04/06/2018 FASCIOTOMY, FOREARM, WITH BRACHIAL ARTERY EXPLORATION (WRVU 8.41) performed by Lida Peter, [facility] MAIN OR ??? PRO DIRECT REPAIR RUPTURED ANEURYSM, AXILLO-BRACHIAL ARM INCIS Left 04/06/2018 @REPAIR, RUPTURED AXILLARY OR BRACHIAL ARTERY ANEURYSM BY ARM INCISION (WRVU *) performed by Lida Peter MD at [facility] MAIN OR ??? PRO EXC PAROTD, TOTAL, UNILAT RAD NECK Left 02/05/2016 @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, TOTAL, WITH UNILATERAL RADICAL NECK DISSECTION performed by Miguel Angel Moreno MD at [facility] MAIN OR ??? PRO EXC SKIN MALIG 3.1-4CM FACE, FACIAL Left 02/05/2016 EXC MALIGNANT LESION, 3.1 TO 4.0CM, FACE performed by Miguel Angel Moreno MD at [facility] OR ? ? PRO EXC SKIN MALIG >4CM TRUNK, ARM, LEG 04/19/2012 EXC MALIGNANT LESION, MICHAEL > 4.0CM, TRUNK performed by SABRINA MEDRANO at [facility] OR ??? PRO LAP, RADICAL NEPHRECTOMY Left 05/31/2017 @LAPAROSCOPY, RADICAL NEPHRECTOMY (WRVU 25.06) performed by Jax Mills MD at [facility] MAIN OR ??? PRO REBL VES GRAFT, UP EXTREM Left 04/06/2018 REPAIR BLOOD VESSEL WITH GRAFT OTHER THAN VEIN, UPPER EXTREMITY (WRVU 15.83) performed by Lida Peter MD at [facility] OR ??? PRO RELIEVE PRESSURE ON NERVE(S) Left 04/06/2018 (MSURG) CARPAL TUNNEL (WRVU 4.82) performed by Hay Sparks MD at [facility] OR ??? PRO REPAIR INTERMEDIATE S/A/T/E 2.6-7.5 CM 04/19/2012 REPAIR INTERMEDIATE WOUND, (NO HANDS OR FEET) 2.6 TO 7.5CM, UPPER EXTREMITY performed by SABRINA MEDRANO at [facility] OR ??? PRO REVISE MEDIAN N/CARPAL TUNNEL SURG Left 04/06/2018 MEDIAN NERVE DECOMPRESSION (CARPAL TUNNEL RELEASE) (WRVU 4.97) performed by Lida Peter MD [facility] MAIN OR ? ? PRO SPLIT GRFT, HEAD, FAC, HAND, FEET <100SQCM N/A 02/20/2016 SPLIT THICKNESS SKIN SPLIT GRAFT,100SQ CM OR LESS, NECK performed by Miguel Angel Moreno MD at [facility] MAIN OR ??? PRO UPPER GI ENDOSCOPY, BIOPSY N/A 05/13/2017 EGD WITH BIOPSY (WRVU 2.49) performed by Aditya Barrera MD at [facility] ENDOSCOPY ??? PRO VASCULAR SURGERY PROCEDURE UNLIST Left 11/20/2015 LIGATION\REPAIR AV FISTULA performed by Camilo Ireland MD at [facility] MAIN OR ??? PRO VASCULAR SURGERY PROCEDURE UNLIST Left 11/20/2015 EXCISION VEIN FROM HAND performed by Camilo Ireland MD at [facility] MAIN OR ??? 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 [...] epilepsy, and prior TBI who presents to [facility] s/p hemorrhagic shock and PEA arrest from [...] care per primary Vascular team. Please page #[phone] for any further questions or concerns. Procedures: [...] -none Sabrina Armas MD 04/07/2018 Trauma pager [phone] * Apple Gutierrez MD - 04/07/2018 6:59 [...] date. CCS and Trauma MDs advised. * Slema Vieira RN - 04/06/2018 6:40 PM EDT [...] to hear from CT for ordered testing. 1899: Report to oncoming shift, care of the [...] and tender to touch. Pt transferred [facility] with all belongings. Report given to oncoming RN. * Natalya Minaya MD - 04/08/2018 12:59 PM EDT Critical Care - Admission Note History of Present Illness: Christy Ambrose is a 57 y/o M w/ PMH developmental delay, epilepsy, IGA nephropathy (s/p renal transplant 2002, on tac & mycophenalate) left rincon nephrectomy (2016), HTN who was found down on 04/06 at his home w/ bleeding from L AVF. He had PEA arrest, ROSC w/ chest compressions, 1 dose epi. Tourniquet applied to L arm in field, pt intubated and brought to [facility]. Received 6 units PRBC & transferred to [facility]. On arrival GCS 11, taken to OR [...] N18.4 ??? 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 termite helper current use of immunosuppressive drug Z79.899 [...] at [facility] OR ??? PRO DECOMPRESS FOREARM, BRACH [...] 4.0CM, TRUNK performed by SABRINA MEDRANO at [facility] OR ??? PRO LAP, RADICAL NEPHRECTOMY Left 05/31/2017 @LAPAROSCOPY, RADICAL NEPHRECTOMY (WRVU 25.06) performed by Jax Mills MD at [facility] OR ??? PRO REBL VES GRAFT, UP EXTREM Left 04/06/2018 REPAIR BLOOD VESSEL WITH GRAFT OTHER THAN VEIN, UPPER EXTREMITY (WRVU 15.83) performed by Lida Peter MD at [facility] OR ??? PRO RELIEVE PRESSURE ON NERVE(S) Left 04/06/2018 (MSURG) CARPAL TUNNEL (WRVU 4.82) performed by Hay Sparks MD at [facility] MAIN OR ??? PRO REPAIR INTERMEDIATE S/A/T/E 2.6-7.5 CM 04/19/2012 REPAIR INTERMEDIATE WOUND, (NO HANDS OR FEET) 2.6 TO 7.5CM, UPPER EXTREMITY performed by SABRINA MEDRANO at [facility] MAIN OR ??? PRO REVISE MEDIAN N/CARPAL TUNNEL SURG Left 04/06/2018 MEDIAN NERVE DECOMPRESSION (CARPAL TUNNEL RELEASE) (WRVU 4.97) performed by Lida Peter MD [facility] MAIN OR ? ? PRO SPLIT GRFT, HEAD, FAC, HAND, FEET <100SQCM N/A 02/20/2016 SPLIT THICKNESS SKIN SPLIT GRAFT,100SQ CM OR LESS, NECK performed by Miguel Angel Moreno MD at [facility] MAIN OR ??? PRO UPPER GI ENDOSCOPY, BIOPSY N/A 05/13/2017 EGD WITH BIOPSY (WRVU 2.49) performed by Aditya Barrera MD at [facility] ENDOSCOPY ??? PRO VASCULAR SURGERY PROCEDURE UNLIST Left 11/20/2015 LIGATION\REPAIR AV FISTULA performed by Camilo Ireland MD at [facility] MAIN OR ??? PRO VASCULAR SURGERY PROCEDURE UNLIST Left 11/20/2015 EXCISION VEIN FROM HAND performed by Camilo Ireland MD at [facility] MAIN OR ??? 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 [...] 7.27* PO2ART 65* 152* 168* 228* 379* OKQ3LFO 31* 34* 39 40 36 BEART -11.8* [...] with Custom Additives 50 mL/hr at 04/07/18 0629 Procedure Component Value Units Date/Time ? Body Fluid Culture, Aerobic & Anaerobic Fluid [[id number]] Collected: 04/06/18 1415 ? Lab Status: Preliminary result Specimen: Fluid Updated: 04/07/18 1332 ? Body Fluid Culture, Aerobic [[id number]] Collected: 04/06/18 1415 ? Lab Status: Preliminary result Specimen: Fluid Updated: 04/07/18 0804 ? Body Fluid Culture Few normal cutaneous shaina ? Gram Stain -- ? Few Neutrophils seen No microorganisms seen. ? Anaerobic Culture [[id number]] Collected: 04/06/18 1415 ? Lab Status: Preliminary [...] can not be managed medically needing emergent MASTER WELDER.No indication for dialysis/CVVH -Had good U.out put [...] tolerated to keep BP stable .currently on vrmgtujmlg24 mg BID and hydralazine,labetolol IV prn ?? [...] Disposition: Critical Care Red 1 Team (pager [phone]) Natalya Minaya MD 04/08/2018 * Erwin Marino MD - 04/06/2018 5:03 PM EDT Critical Care - Admission Note History of Present Illness: Christy Ambrose is a 57 y.o. male with PMH of HTN, TBI w/ epilepsy, gout, IgA nephropathy s/p donor renal transplant 2002 (on tacrolimus and cellcept) complicated by delayed graft function andrecurrent IgA nephropathy and Prograf toxicity, laparoscopic L rincon radical nephrectomy May 2017 for papillary carcinoma, HTN, previous revision of L AVF due to massive size. Recently put on coumadin for infection of left forearm with swelling, suspected to be DVT. Presents to [facility] with hemorrhagic shock s/p PEA arrest secondary to torrential left upper extremity fistula bleeding. Per EMS the patient had a severe amount of blood loss in the bathroom and bedroom that resulted in PEA cardiac arrest at the scene. He received epinephrine, 2.5 L of normal saline with ROSC obtained. Arrived at EDintubated and sedated and then received 6 units [...] 4.0CM, TRUNK performed by SABRINA MEDRANO at [facility] OR ??? PRO LAP, RADICAL NEPHRECTOMY Left 05/31/2017 @LAPAROSCOPY, RADICAL NEPHRECTOMY (WRVU 25.06) performed by Jax Mills MD at [facility] OR ??? PRO REPAIR INTERMEDIATE S/A/T/E 2.6-7.5 CM 04/19/2012 REPAIR INTERMEDIATE WOUND, (NO HANDS OR FEET) 2.6 TO 7.5CM, UPPER EXTREMITY performed by SABRINA MEDRANO at [facility] OR ? ? PRO SPLIT GRFT, HEAD, FAC, HAND, FEET <100SQCM N/A 02/20/2016 SPLIT THICKNESS SKIN SPLIT GRAFT,100SQ CM OR LESS, NECK performed by Miguel Angel Moreno MD at [facility] MAIN OR ??? PRO UPPER GI ENDOSCOPY, BIOPSY N/A 05/13/2017 EGD WITH BIOPSY (WRVU 2.49) performed by Aditya Barrera MD at [facility] ENDOSCOPY ??? PRO VASCULAR SURGERY PROCEDURE UNLIST Left 11/20/2015 LIGATION\REPAIR AV FISTULA performed by Camilo Ireland MD at [facility] MAIN OR ??? PRO VASCULAR SURGERY PROCEDURE UNLIST Left 11/20/2015 EXCISION VEIN FROM HAND performed by Camilo Ireland MD at [facility] MAIN OR ??? 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 [...] mcL Appearance UA Hazy (A) Clear Spec [place] UA 1.023 1.002 - 1.030 Color UA [...] No microorganisms seen. Radiology: XR Chest and [id number] 04/06 Prominence of the superior mediastinum may [...] Ambrose Level of Activation: Trauma 9 MR#: [id number] [ ]Scene Call or [X]Hospital Transfer : [id number] CC/MECHANISM OF INJURY: 57 y.o. Male s/p [...] HTN, epilepsy,and prior TBI who presents to [facility] s/p LUE bleeding with PEA arrest. Description [...] Pt intubated in field. Pt taken to [facility], where second tourniquet applied and pt received 6U PRBC. Transferred to [facility] for further care. Of note, per Dr. [...] Pneumonia ??? TBI (traumatic brain injury) 1980 PAST SURGICAL HISTORY: Past Surgical History: Procedure [...] 4.0CM, TRUNK performed by SABRINA MEDRANO at [facility] OR ??? PRO LAP, RADICAL NEPHRECTOMY Left 05/31/2017 @LAPAROSCOPY, RADICAL NEPHRECTOMY (WRVU 25.06) performed by Jax Mills MD at [facility] OR ??? PRO REPAIR INTERMEDIATE S/A/T/E 2.6-7.5 CM 04/19/2012 REPAIR INTERMEDIATE WOUND, (NO HANDS OR FEET) 2.6 TO 7.5CM, UPPER EXTREMITY performed by SABRINA MEDRANO at [facility] OR ? ? PRO SPLIT GRFT, HEAD, FAC, HAND, FEET <100SQCM N/A 02/20/2016 SPLIT THICKNESS SKIN SPLIT GRAFT,100SQ CM OR LESS, NECK performed by Miguel Angel Moreno MD at [facility] MAIN OR ??? PRO UPPER GI ENDOSCOPY, BIOPSY N/A 05/13/2017 EGD WITH BIOPSY (WRVU 2.49) performed by Aditya Barrera MD at [facility] ENDOSCOPY ??? PRO VASCULAR SURGERY PROCEDURE UNLIST Left 11/20/2015 LIGATION\REPAIR AV FISTULA performed by Camilo Irleand MD at [facility] MAIN OR ??? PRO VASCULAR SURGERY PROCEDURE UNLIST Left 11/20/2015 EXCISION VEIN FROM HAND performed by Camilo Ireland MD at [facility] MAIN OR ??? 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 [...] mcL Appearance UA Hazy (A) Clear Spec [place] UA 1.023 1.002 - 1.030 Color UA [...] epilepsy, and prior TBI who presents to [facility] s/p LUE bleeding with PEA arrest now [...] to the planned procedure. Hand Hygiene: The salvage worker did perform hand hygiene prior to line insertion. Catheter type: PICC Lot number: [id number] Procedure Technique: Skin was prepped with chlorhexidine. [...] vac dressing completed. Left forearm wound measures [id number] with clean, well granulated base. PANCHITO Eng with plastic surgery was present for dressing change to assess for closure plan, ie flap procedure. Pt tolerated the dressing change well with PO medications. Black sponge (x3) placed to wound bed, covered with plastic and suction was applied @125mmhg continuous. Dry gauze and tape placed over leftwrist incision. * Jose Alejandro Zavaleta MD - 04/09/2018 9:03 AM EDT [facility] Department of Neurology Critical Care Prolonged [...] in the Intensive Care Unit by the [facility] Clinical Neurophysiology Laboratory. The 10/20 international system [...] of non-specific etiology. No seizures. JOSE ALEJANDRO A BUJARSKI, MD 04/09/2018 9:04 AM. * Beth Colunga - 04/08/2018 3:43 PM EDTAssociated Order(s): EEG AWAKE, ASLEEP, DROWSY [facility] Department of Neurology In Patient Routine [...] tablet 50 mg 50 mg Oral Q8H [facility] Angelika Aguilera PA 50 mg at 04/08/18 [...] channel digitized electroencephalogram was performed in the [facility] Clinical Neurophysiology Laboratory. The 10/20 international system of electrode placement was used and bipolar and referential electrode montages were recorded. In addition to EEG the patient was monitored for EKGand lateral/vertical eye movements. Video was recorded during the session. The duration of the recording was 30 minutes. VEGETABLE BUNCHER'S REPORT: Performed by: AT Patient was not [...] reach Surveillance [continuous indirect monitoring]: Mariposa Alfaro daniels within reach, Purposeful rounding Patient-specific fall [...] briefly with patient to update him that [facility] in [place], [place] is reviewing him for possible admission this week. Pt was appreciative for this news. Pt [facility] filed for [facility]. Pt's staff nurse Lalitha mensah. I was going to call pt's brother Lucas to discuss. VETERINARY PHARMACOLOGIST Sandeep Wan had just talked with pt's brother and mother Ilda and informed me that a tentative family meeting has been set up for tomorrow at 3:00 pm. CM will be part of the meeting; will continue to follow. Padmini Ruiz, RN [phone] * Plan of Care - Naz Robbins [...] Outcome: Ongoing (Interventions Implemented as Appropriate) 05/01/18 0805/01/18199905/01/182025 Daily Care Interventions Self-Care Promotion -- independence [...] none Problem: Health Knowledge, Opportunity to Enhance (Adult,NICU,[place],Obstetrics,Pediatric) Goal: Knowledgeable about Health Subject/Topic Patient will [...] PRN PICC dressing change completed as per [facility] protocol. yes Positive pressure displacement connector (Max [...] (Interventions Implemented as Appropriate) 04/29/18 2100 04/30/18 0804/30/18 1033 Daily Care Interventions Self-Care Promotion independence [...] (Interventions Implemented as Appropriate) 04/29/18 2100 04/30/18 08 Safety Interventions Isolation Precautions standard precautions [...] none Problem: Health Knowledge, Opportunity to Enhance (Adult,NICU,[place],Obstetrics,Pediatric) Goal: Knowledgeable about Health Subject/Topic Patient will demonstrate the desired outcomes by discharge/transition of care. Outcome: Ongoing (Interventions Implemented as Appropriate) 04/30/18 1903 Health Knowledge, Opportunity to Enhance (Adult,NICU,[place],Obstetrics,Pediatric) Knowledgeable about Health Subject/Topic making progress toward [...] Control Outcome: Ongoing (Interventions Implemented as Appropriate) 04/29/18201704/29/182099 Safety Interventions Isolation Precautions -- standard precautions [...] 04/27/2018 3:19 PM EDT OFFICE OF CARE MANAGEMENT/Ironworker Foreman/PROGRESS NOTE e-DH reviewed. Report received from vascular. [...] broughthim in. Plan is to look for [facility] Care and I have submitted to other [...] Discharge Disposition: (P) inpatient rehabilitation facility Pager: [phone] IRLANDA MUNOZ 04/27/2018 Occupational Therapy Rehabilitation Department 04/27/18 1412 Rehab Evaluation Document Type therapy note (daily note) Total Evaluation Minutes, Occupational Therapy 24 Patient Effort good Symptoms Noted During/After Treatment none General Information Patient Profile Review yes Patient/Family/Caregiver Comments/Observations I can slate picker a can of soup with my L [...] Assessment/Treatment Assistive Device (Bed Mobility) bed rails Vyj-qm-Wjgptc Gosper (Bed Mobility) conditional independence Impairments (Bed Mobility) flexibility decreased;ROM (range of motion) decreased;strength decreased Comment (Bed Mobility) HOB slightyly elevated; vc's to adjust HOB Transfer Assessment/Treatment Chair-Bed Gosper (Transfers) contact guard assist Gosper (Sit-Stand Transfers) contact guard assist Gosper (Stand-Sit Transfers) contact guard assist Gosper (Toilet Transfers) (pt continues to report ambulating to bathrom for toileting) Impairments (Transfers) balance impaired;ROM (range of motion) decreased;strength decreased Gait Assessment/Treatment Gosper (Gait) contact guard assist Assistive Device (Gait) gait belt Distance in Feet (Gait) 750' Safety Issues (Gait) balance decreased during turns;step length decreased Impairments (Gait) balance impaired;coordination impaired Comment (Gait) mild ataxia; no lob noted; assist to carry wound vac Lower Body Dressing Assessment/Training Position (LB Dressing) standing Gosper Level (LB Dressing) contact guard assist Impairments [...] good balance Sitting Balance: Dynamic fair balance Pdk-om-Zhzfr Balance fair balance Standing Balance: Static fair [...] in. ?? I have met with the patient/medical customer service representative to discuss discharge planning needs. I have provided the [facility], Office of Care Management letter from the Baby Counselor pertaining to rehab referrals. I have also provided a letter describing our affiliations within the [facility] and educated them about their right to choose where referrals are placed. ?? I reviewed the different levels of rehab including SNF, swing, acute and LTAC with the patient/medical customer service representative. ?? The patient/medical customer service representative has been provided a list of facilities within their preferred geographic area. ?? I have requested that the patient/medical customer service representative provide at least three choices for referral. ?? The patient/medical customer service representative have requested referrals to: ?? 1. [facility] ?? 2. [facility] ?? 3. [facility]. View ?? Expected date of discharge: 3-5 days Note routed to Pocket Machine Operator who will communicate referrals to facilities and provide any required information. * Plan of Care - Helen Denny RN - 04/27/2018 10:22 AM EDT Problem: Health Knowledge, Opportunity to Enhance (Adult,NICU,[place],Obstetrics,Pediatric) Goal: Knowledgeable about Health Subject/Topic Patient will demonstrate the desired outcomes by discharge/transition of care. Peripherally Inserted Central Catheter (PICC) Teaching Sheet Peripherally inserted central catheters (yhyn-yd-agdk) (PICC) are used when you need IV [...] midline catheter? PICC lines are used for fpc treatments. PICC lines may be used for [...] can be set up via the nurse Ironworker Foreman to help you. What are possible complications [...] Vascular Access Device Selection, Insertion, and Management, IceBreaker Access Systems 04/15. A Review of the Efficacy, Safety, Use, and Administration of [employer], [employer] 2005 * Plan of Care - [...] Sparks MD - 04/26/2018 12:40 PM EDT [facility] Operative Note Patient Name: Christy Ambrose : [id number] MR#: [id number] Case Date: 04/26/2018 Surgeon: Surgeon(s) and Role: [...] Aditi Mccollum MD Plastic Surgery Resident, pager [phone] Plastic surgery team pager: [phone] Attestation: Case Date: 04/26/2018 I was present and I participated during the entire procedure (does not need to include opening and closing). HAY SPARKS MD 04/27/2018 * Brief Op Note - Aditi Mccollum MD - 04/26/2018 12:36 PM EDT Brief Operative Note Patient Name: Christy Ambrose : [id number] MR#: [id number] Case Date: 04/26/2018 Surgeon: Surgeon(s) and Role: [...] or Care? [facility]. What Questions Do You Have About [...] by Miguel Angel Moreno MD at [facility] MAIN OR ??? PRO DECOMPRESS FOREARM, BRACH ART EXPLOR Left 04/06/2018 FASCIOTOMY, FOREARM, WITH BRACHIAL ARTERY EXPLORATION (WRVU 8.41) performed by Lida Peter MDat [facility] MAIN OR ??? PRO DIRECT REPAIR RUPTURED ANEURYSM, AXILLO-BRACHIAL ARM INCIS Left 04/06/2018 @REPAIR, RUPTURED AXILLARY OR BRACHIAL ARTERY ANEURYSM BY ARM INCISION (WRVU *) performed by Lida Peter MD at [facility] MAIN OR ??? PRO EXC PAROTD, TOTAL, UNILAT RAD NECK Left 02/05/2016 @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, TOTAL, WITH UNILATERAL RADICAL NECK DISSECTION performed by Miguel Angel Moreno MD at [facility] MAIN OR ??? PRO EXC SKIN MALIG 3.1-4CM FACE, FACIAL Left 02/05/2016 EXC MALIGNANT LESION, 3.1 TO 4.0CM, FACE performed by Miguel Angel Moreno MD at [facility] MAIN OR ? ? PRO EXC SKIN MALIG >4CM TRUNK, ARM, LEG 04/19/2012 EXC MALIGNANT LESION, MICHAEL > 4.0CM, TRUNK performed by SABRINA MEDRANO at [facility] OR ??? PRO LAP, RADICAL NEPHRECTOMY Left 05/31/2017 @LAPAROSCOPY, RADICAL NEPHRECTOMY (WRVU 25.06) performed by Jax Mills MD at [facility] MAIN OR ??? PRO LIGATN ANGIOACCESS AV FISTULA Left 04/19/2018 LIGATION OR BANDING OF HEMODIALYSIS FISTULA OR GRAFT UPPER EXTREMITY (WRVU 6.25) performed by Odalis Elias MD at [facility] OR ??? PRO NEGATIVE PRESSURE WOUND THERAPY, LESS THAN OR EQUAL TO 50 SQCM Left 04/19/2018 DRESSING CHANGE (VAC ASSISTED) UP TO 50SQ.CM (WRVU 0.55) performed by Odalis Elias MD [facility] OR ??? PRO REBL VES GRAFT, UP EXTREM Left 04/06/2018 REPAIR BLOOD VESSEL WITH GRAFT OTHER THAN VEIN, UPPER EXTREMITY (WRVU 15.83) performed by Lida Peter MD at [facility] MAIN OR ??? PRO RELIEVE PRESSURE ON NERVE(S) Left 04/06/2018 (MSURG) CARPAL TUNNEL (WRVU 4.82) performed by Hay Sparks MD at [facility] MAIN OR ??? PRO REPAIR INTERMEDIATE S/A/T/E 2.6-7.5 CM 04/19/2012 REPAIR INTERMEDIATE WOUND, (NO HANDS OR FEET) 2.6 TO 7.5CM, UPPER EXTREMITY performed by SABRINA MEDRANO at [facility] MAIN OR ? ? PRO REPAIR INTERMEDIATE S/A/T/E > 30.0 CM Left 04/14/2018 REPAIR INTERMEDIATE WOUND, (NO HANDS OR FEET) >30.0CM, UPPER EXTREMITY (WRVU 5) performed by Yimi Easton MD at [facility] OR ??? PRO REVISE MEDIAN N/CARPAL TUNNEL SURG Left 04/06/2018 MEDIAN NERVE DECOMPRESSION (CARPAL TUNNEL RELEASE) (WRVU 4.97) performed by Lida Peter MD [facility] MAIN OR ? ? PRO SPLIT GRFT, HEAD, FAC, HAND, FEET <100SQCM N/A 02/20/2016 SPLIT THICKNESS SKIN SPLIT GRAFT,100SQ CM OR LESS, NECK performed by Miguel Angel Moreno MD at [facility] MAIN OR ??? PRO UPPER GI ENDOSCOPY, BIOPSY N/A 05/13/2017 EGD WITH BIOPSY (WRVU 2.49) performed by Aditya Barrera MD at [facility] ENDOSCOPY ??? PRO VASCULAR SURGERY PROCEDURE UNLIST Left 11/20/2015 LIGATION\REPAIR AV FISTULA performed by Camilo Ireland MD at [facility] MAIN OR ??? PRO VASCULAR SURGERY PROCEDURE UNLIST Left 11/20/2015 EXCISION VEIN FROM HAND performed by Camilo Ireland MD at [facility] MAIN OR ??? 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 [...] as pending/add-on, please make patient NPO at [facility] on Wednesday. Attending: Plan discussed and agree [...] Discharge Disposition: (P) inpatient rehabilitation facility Pager: [phone] IRLANDA MUNOZ 04/22/2018 Occupational Therapy Rehabilitation Department [...] Level 0 Pain Goal 0 Transfer Assessment/Treatment Gosper (Sit-Stand Transfers) supervision required Gosper (Toilet Transfers) supervision required Assistive Device (Toilet Transfers) bracing Impairments (Transfers) strength decreased;balance impaired Comment (Transfers) assist for wound vac during toilet transfer; slightly impulsive Gait Assessment/Treatment Gosper (Gait) supervision required Distance in Feet (Gait) 25 Impairments (Gait) balance impaired Comment (Gait) recliner <> bathroom ; witnessed pt ambulating unit w/ staff accountant ~300 Bathing Assessment/Training Comment (Bathing) pt had just completed bathing task prior to this writers arrival; pt reported assisting w/ shower cap and bathing ; Lower Body Dressing Assessment/Training Position (LB Dressing) sitting Gosper Level (LB Dressing) verbal cues required;nonverbal cues [...] Eyes on Surveillance [continuous indirect monitoring]: Masimo, purposeful rounding CPG GOAL OUTCOME EVALUATION: Goal: [...] Ongoing (Interventions Implemented as Appropriate) 04/21/18 0800 Safety Interventions Isolation Precautions standard precautions [...] Home with assist [facility] PTA Pager: [phone] Inpatient Physical Therapy Timed Up & Go [...] Description Score (0-4) 1. Sitting to standing /4 2. Standing unsupported /4 3. Sitting unsupported /4 4. Standing to sitting 4 5. Transfers 10/13 6. Standing with eyes [...] Assessment/Treatment Assistive Device (Bed Mobility) bed rails Duynul-mn-Fty Gosper (Bed Mobility) conditional independence Comment (Bed Mobility) HOB flat, extra time required Fnk-wq-Royuif Gosper (Bed Mobility) conditional independence Transfer Assessment/Treatment Gosper (Sit-Stand Transfers) supervision required Gosper (Stand-Sit Transfers) supervision required Jbm-Wmdbj-Nwk Assistive Device (Transfers) (no device) Maintain Weight Bearing Status (Transfers) cues to maintain weight bearing status Safety Issues (Transfers) balance decreased during turns Impairments (Transfers) balance impaired;strength decreased Comment (Transfers) Initial cues to not use L UE, impulsive, pt held wound vac with R UE Gait Assessment/Treatment Gosper (Gait) supervision required Assistive Device (Gait) (no [...] to sit/sit to sidelying Bed Mobility Goal, Gosper Level independent Bed Mobility Goal, Outcome Achieved goal ongoing Gait Training Goal Gait Training Goal, Date Established 04/11/18 Gait Training Goal, Time to Achieve 2 wks Gait Training Goal, Gosper Level independent Gait Training Goal, Assist Device other (see comments) (LRD ) Gait Training Goal, Distance to Achieve 150 ft Gait Training Goal, Outcome goal ongoing Transfer Training Goal Transfer Training Goal, Date Established 04/11/18 Transfer Training Goal, Time to Achieve 2 wks Transfer Training Goal, Activity Type all transfers Transfer Train Goal, Gosper Level independent Transfer Training Goal, Assist Device [...] Outcome: Ongoing (Interventions Implemented as Appropriate) 04/20/18 2100 Activity Activity Type ambulated to bathroom Activity Assistance Provided assistance, stand-by Restraint Interventions Safety Promotion/Fall Prevention activity supervised;nonskid shoes/slippers when out of bed;safety round/check completed Goal: Infection Control Outcome: Ongoing (Interventions Implemented as Appropriate) 04/20/18 2100 Safety Interventions Isolation Precautions standard precautions maintained [...] Discharge Disposition: (P) inpatient rehabilitation facility Pager: [phone] IRLANDA MUNOZ 04/20/2018 Occupational Therapy Rehabilitation Department [...] Level 0 Pain Goal 0 Transfer Assessment/Treatment Gosper (Sit-Stand Transfers) contact guard assist Gosper (Stand-Sit Transfers) contact guard assist Tph-Jsatl-Ibv Assistive Device (Transfers) gait belt Safety Issues (Transfers) balance decreased during turns Impairments (Transfers) balance impaired;strength decreased Comment (Transfers) slightly impulsive at times; cues for safety awareness Gait Assessment/Treatment Gosper (Gait) verbal cues required;nonverbal cues required (demo/gesture);contact guard assist Assistive Device (Gait) gait belt Distance in Feet (Gait) 300' Safety Issues (Gait) balance decreased during turns;step length decreased Impairments (Gait) balance impaired;strength decreased Comment (Gait) pt required mulit modal cues for directions; slightly impulsive; Lower Body Dressing Assessment/Training Position (LB Dressing) sitting;standing Gosper Level (LB Dressing) set up required;verbal cues [...] good balance Sitting Balance: Dynamic fair balance Xfe-kn-Yhhnc Balance fair balance Standing Balance: Static fair [...] DVT on coumadin who was transferred to [facility] for hemorrhagic shock with PEA arrest secondary to fistulableeding. He is a limited historian- history taken from chart- He had had some leaking from his LUEAVF site and was found by his mom in a pool of blood, pulseless. He was transfused 6 units of prbcsand transferred to [facility]. He had previous LAVF revision due to [...] father Social History and Habits: Lives in [place] with his mom. Non-smoker (quit 2000). No [...] Danielle Peoples DO Infectious Disease Fellow Pager [phone] Associated attestation - Katarzyna Guevara MD - [...] Junior MD - 04/19/2018 10:43 AM EDT [facility] Operative Note Patient Name: Christy Ambrose : [id number] MR#: [id number] Case Date: 04/19/2018 Surgeon: Surgeon(s) and Role: [...] to this patient.) ?? HPI/Surgical Indications: Christy Ginna Ambrose??is a 57 y.o.??male??with PMH of HTN, [...] Junior MD 04/19/2018 Associated attestation - Odalis Eilas MD - 04/19/2018 4:00 PM EDT Attestation: Case Date: 04/19/2018 I was present and scrubbed for the entire procedure. ODALIS ELIAS MD 04/19/2018 * Brief Op Note - Bhargavi Junior MD - 04/19/2018 10:25 AM EDT [facility] Operative Note Patient Name: Christy Ambrose : [id number] MR#: [id number] Case Date: 04/19/2018 Surgeon: Surgeon(s) and Role: [...] 04/18/2018 2:40 PM EDT OFFICE OF CARE MANAGEMENT/Ironworker Foreman/PROGRESS NOTE e-DH reviewed. Report received from vascular [...] wound base. --Had AVF ultrasound today in [facility] to assess AVF --NPO at midnight [...] Conf Outcome: Ongoing (Interventions Implemented as Appropriate) 10/08/18 0355 Interdisciplinary Rounds/Family Conf Participants patient;nursing;physician Problem: [...] Implemented as Appropriate) 04/15/18 0850 04/15/18 19304/15/18 2115 Daily Care Interventions Self-Care Promotion independence [...] Outcome: Ongoing (Interventions Implemented as Appropriate) 04/16/18 032 Safety Interventions Isolation Precautions standard precautions maintained [...] (Interventions Implemented as Appropriate) 04/08/18 19304/10/18 1602 Mutuality/Individual Preferences What Anxieties, Fears or [...] (Interventions Implemented as Appropriate) 04/08/18 19304/10/18 1602 04/11/181999 Discharge Needs Assessment Concerns To [...] 04/15/2018 12:36 PM EDT OFFICE OF CARE MANAGEMENT/Ironworker Foreman/PROGRESS NOTE e-DH reviewed. Report received from vascular [...] Discharge Disposition: (P) inpatient rehabilitation facility Pager: [phone] IRLANDA MUNOZ 04/15/2018 Occupational Therapy Rehabilitation Department [...] 0 Pain Goal 0 Transfer Assessment/Treatment Bed-Chair Gosper (Transfers) contact guard assist Nsk-Mpzas-Uok Assistive Device (Transfers) (IV pole for support ) Gosper (Sit-Stand Transfers) set up required;verbal cues required;contact guard assist Gosper (Stand-Sit Transfers) verbal cues required;contact guard assist Jdb-Asqly-Anx Assistive Device (Transfers) (IV pole ) Safety Issues (Transfers) sequencing ability decreased;step length decreased;weight-shifting ability decreased Impairments (Transfers) balance impaired;strength decreased Comment (Transfers) cues for safe hand placement and task initation Gait Assessment/Treatment Gosper (Gait) verbal cues required;contact guard assist Assistive [...] Body Dressing Assessment/Training Position (UB Dressing) sitting Gosper Level (UB Dressing) contact guard assist Comment (UB Dressing) don/doff patti Grooming Assessment/Training Position (Grooming) sitting Gosper Level (Grooming) set up required;verbal cues required;contact [...] mass index is 28.91 kg/(m^2). [facility]: [facility] with dry, intact [...] Please contact Violetta Deng RN on pager [phone] or the wound care team at [phone] or pager [phone] with skin and wound care concerns or [...] for specific details, POC and goals. Recommendations DIGITAL MEASUREMENT ADVISOR Diet Recommendation: regular solid, thin liquids Therapy Frequency: other (see comments) (D/C from speech intervention.) MIGUEL ANGEL PIERCE, YOUSIF Inpatient Speech Pathologist Pager: [phone] 04/15/18 1011 Rehab Evaluation Document Type therapy [...] Dysphagia Goal, Outcome goal met Clinical Impression DIGITAL MEASUREMENT ADVISOR Swallowing Diagnosis other (see comments) (Functionally appearing oropharyngeal swallow) Rehab Potential/Prognosis, Swallowing good, to achieve stated therapy goals Therapy Frequency other (see comments) (D/C from speech intervention.) DIGITAL MEASUREMENT ADVISOR Diet Recommendation regular solid;thin liquids * Plan [...] inpatient rehabilitation facility [facility] PTA Pager: [phone] Inpatient Physical Therapy 04/15/18 6561 Rehab Evaluation Document Type therapy note (daily note) Total Evaluation Minutes, Physical Therapy 25 (TE-F x 2) Patient Effort excellent Symptoms Noted During/After Treatment fatigue General Information Patient/Family/Caregiver Comments/Observations I need to get moving more, and it will get better Pertinent History of Current Problem Christy Delunaon [...] cook, clean independently. 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 pt usually ambulates w/o AD, but occasionally will walk w/ cane Pain Scale/Rating Pain Assessment Scale Word (verbal rating pain scale) Pain Level 0 Bed Mobility Assessment/Treatment Assistive Device (Bed Mobility) bed rails Qrnary-wv-Jds Gosper (Bed Mobility) supervision required Comment (Bed Mobility) HOB elevated, extra time required Safety Issues (Bed Mobility) decreased use of arms for pushing/pulling Impairments (Bed Mobility) strength decreased Transfer Assessment/Treatment Gosper (Sit-Stand Transfers) contact guard assist Gosper (Stand-Sit Transfers) contact guard assist Vfb-Nbnor-Udb Assistive Device (Transfers) (IV pole) Safety Issues (Transfers) balance decreased during turns;step length decreased;loses balance backward Impairments (Transfers) balance impaired;strength decreased Comment (Transfers) Initially falling back onto bed with standing or marching in place, able to steady himself with the IV pole Gait Assessment/Treatment Gosper (Gait) contact guard assist Assistive Device (Gait) [...] to sit/sit to sidelying Bed Mobility Goal, Gosper Level independent Bed Mobility Goal, Outcome Achieved goal ongoing Gait Training Goal Gait Training Goal, Date Established 04/11/18 Gait Training Goal, Time to Achieve 2 wks Gait Training Goal, Gosper Level independent Gait Training Goal, Assist Device other (see comments) (LRD ) Gait Training Goal, Distance to Achieve 150 ft Gait Training Goal, Outcome goal ongoing Transfer Training Goal Transfer Training Goal, Date Established 04/11/18 Transfer Training Goal, Time to Achieve 2 wks Transfer Training Goal, Activity Type all transfers Transfer Train Goal, Gosper Level independent Transfer Training Goal, Assist Device [...] Ongoing (Interventions Implemented as Appropriate) 04/15/18 050 Skin Integrity Impairment, Risk/Actual (Adult) Skin Integrity/Wound Healing making progress toward outcome Problem: Patient Care Overview Goal: Plan of Care Review Outcome: Ongoing (Interventions Implemented as Appropriate) 04/15/18500 Coping/Psychosocial Plan Of Care Reviewed With patient [...] Ongoing (Interventions Implemented as Appropriate) 04/14/18 0008 04/14/18 19204/15/18 050 Toribio Fall Risk History of Falling -- [...] Control Outcome: Ongoing (Interventions Implemented as Appropriate) 04/14/18212804/15/18 050 Safety Interventions Isolation Precautions -- standard precautions [...] Ongoing (Interventions Implemented as Appropriate) 04/15/18 050 Seizure Disorder/Epilepsy Problems Assessed (Seizure Disorder/Epilepsy) all Problems Present (Seizure Disorder/Epilepsy) none * Op Note - Yimi Esaton MD - 04/14/2018 8:19 AM EDT [facility] Operative Note Patient Name: Christy DU: [id number] MR#: [id number] Case Date: 04/14/2018 Surgeon: Surgeon(s) and Role: [...] he was found down. [facility]niquets on since [...] Outcome: Ongoing (Interventions Implemented as Appropriate) 04/12/18 3126 Interdisciplinary Rounds/Family Conf Participants nursing;patient;physician Purposeful hourly rounding. * Care Management - [place], SAVANNA - 04/13/2018 1:58 PM EDT Based on discussions with the multi-disciplinary healthcare team, the patient would benefit from rehab/snf level of care at discharge. ?? I have met with the patient/medical customer service representative to discuss discharge planning needs. I have provided the [facility], Office of Care Management letter from the Baby Counselor pertaining to rehab referrals. I have also provided a letter describing our affiliations within the [facility] and educated them about their right to choose where referrals are placed. ?? I reviewed the different levels of rehab including SNF, swing, acute and LTAC with the patient/medical customer service representative. ?? The patient/medical customer service representative has been provided a list of facilities within their preferred geographic area. ?? I have requested that the patient/medical customer service representative provide at least three choices for referral. ?? The patient/medical customer service representative have requested referrals to: ?? 1. [facility]. ?? 2. [facility] ?? 3. ?? Expected date of discharge: next 24- 48 hours Note routed to Pocket Machine Operator who will communicate referrals to facilities and [...] epilepsy, and prior TBI who presents to [facility] s/p LUE bleeding with PEA arrest. Description [...] Pt intubated in field. Pt taken to [facility], where second tourniquet applied and pt received 6U PRBC. Transferred to [facility]. Per Lorenzo monahan P Dr. Burkett. Past Medical History: Diagnosis Date ??? BP (high blood pressure) ??? DVT (deep venous thrombosis) ??? Gout ??? Hypertension ??? Kidney problem ??? Pneumonia ??? TBI (traumatic brain injury) 1980 Hospitalizations Within the Past 30 Days: [facility] Anticipated Length Of Stay (If known): Expected Length of Hospitalization: 5-7 days Current Decision-Making Capacity: Alert but confused. Awakes when I speak but confused when answering. Advance Care Planning: Adv. Directives are from 2010, pt's POA is brother Lucas Ambrose who resides in [facility], pat's 86 year old mother Ilda [...] Insurance: N/A Prescription Coverage: yes Preferred Pharmacy: [facility] in [place], [place]. Primary Care Provider: Carroll Garcia DO [phone] Patient/Caregiver Goals of Treatment: to go to [...] follow up with Transplant Nephrology/Hospital Med today Plan: to go to acute rehab at discharge. A member of the Care Management team will continue to monitor progress, follow for continuity of care and assist with transition of care planning. [place] RN Pager: [phone] * Care Management - [place] RN - 04/12/2018 2:33 PM EDT Based on discussions with the multi-disciplinary healthcare team, the patient would benefit from acute inpatient rehab. level of care at discharge. ?? I have met with the patient/medical customer service representative to discuss discharge planning needs. I have provided the [facility], Office of Care Management letter from the Baby Counselor pertaining to rehab referrals. I have also provided a letter describing our affiliations within the [facility] and educated them about their right to choose where referrals are placed. ?? I reviewed the different levels of rehab including SNF, swing, acute and LTAC with the patient/medical customer service representative. ?? The patient/medical customer service representative has been provided a list of facilities within their preferred geographic area. ?? I have requested that the patient/medical customer service representative provide at least three choices for referral. ?? The patient/medical customer service representative have requested referrals to: ?? 1. [facility] [place], [place] ?? 2. [facility] ?? 3. [facility]. ?? Expected date of discharge: next 24-72 hours Note routed to Pocket Machine Operator who will communicate referrals to facilities and provide any required information. * Consult Note - Ashlie Willis [facility] - 04/12/2018 10:24 AM EDT Clinical Pharmacist Note - Renal Dose Adjustment for Antimicrobials Christy Ambrose (A# [id number]) is being treated with the following antimicrobial [...] 33* I/O Yesterday: 04/11 0701 - 04/12 07 In: 795.2 [P.O.:300; I.V.:443.2] [...] Anticipated Discharge Disposition: inpatient rehabilitation facility Pager: [phone] RAFAELA ALONZO OT 04/11/2018 Occupational Therapy Rehabilitation [...] participate Pertinent History of Current Problem Christy J Arnol is a 57 y.o. male w/ [...] all ADL/IADL tasks. Drives. Works at the [employer]. Only ambulates with a cane on the [...] to;person;place;time (Struggled with the year, but said 2017) Attention (Cognitive) mild impairment;distractible Follows Commands/Answers Questions [...] Assessment/Treatment Assistive Device (Bed Mobility) bed rails Piuhmf-cv-Elm Gosper (Bed Mobility) minimum assist (75% patient effort) Comment (Bed Mobility) HOB elevated Transfer Assessment/Treatment Gosper (Sit-Stand Transfers) moderate assist (50% patient effort);2 person assist required;verbal cues required Gosper (Stand-Sit Transfers) moderate assist (50% patient effort);2 person assist required;verbal cues required Rjr-Zeovn-Agi Assistive Device (Transfers) (Initally stood w/o any AD. Poor balance ) Gait Assessment/Treatment Gosper (Gait) moderate assist (50% patient effort);2 person [...] Body Dressing Assessment/Training Position (UB Dressing) sitting Gosper Level (UB Dressing) minimum assist (75% patient effort) Lower Body Dressing Assessment/Training Position (LB Dressing) sitting Gosper Level (LB Dressing) minimum assist (75% patient [...] (Group) Toileting Goal Toileting Goal, Date Established 10/01/18 Toileting Goal, Time to Achieve 2 wks [...] Outcome: Ongoing (Interventions Implemented as Appropriate) 04/10/18 160 Individualization Patient Specific Goals Walk with PT [...] were not included. Infiltration/Extravasation Scale Christy Ambrose [id number] IC18/IC18-A Infiltration appearance: Infiltration harm % for [...] to comfort. MD at the Pt's bedside. AUDIOLOGY ASSISTANT CARING FOR THIS PATIENT WILL CONTINUE TO [...] chair to 2 hour intervals. Use a [employer] chair cushion beneath patient at all times while in the chair. Reinforce teaching to shift weight every 15 minutes while in the chair. Following hospital standard for pressure ulcer prevention and skin care. Refer to adult/pediatric pressure ulcer prevention job aid in the clinical policy library. Wound care will follow weekly. Discussed plan with: RN: Elva Please contact MEAGHAN HOOD RN on pager [phone] or the wound care team at [phone] or pager [phone] with skin and wound care concerns or questions. * Plan of Care - Miguel Angel Pierce, DIGITAL MEASUREMENT ADVISOR - 04/08/2018 8:59 AM EDT Speech-Language Pathology [...] Therapy Frequency: 2-3 times/wk MIGUEL ANGEL PIERCE, DIGITAL MEASUREMENT ADVISOR Inpatient Speech Pathologist Pager: [phone] 04/08/18 2470 Rehab Evaluation Document Type evaluation Total Evaluation [...] patient (RN) Speech Language Pathology Goal Types DIGITAL MEASUREMENT ADVISOR Goal Types Dysphagia Goal (Group) Dysphagia Goal Dysphagia Goal, Date Established 04/08/18 Dysphagia Goal, Time to Achieve by discharge Oral Nutritional Level Goal safely tolerates/maintains adequate oral nutrition;no signs/symptoms ofaspiration present Clinical Impression DIGITAL MEASUREMENT ADVISOR Swallowing Diagnosis oral dysfunction;other (see comments) (Functionally appearing pharyngeal dysphagia. ) Rehab Potential/Prognosis, Swallowing good, to achieve stated therapy goals Therapy Frequency 2-3 times/wk DIGITAL MEASUREMENT ADVISOR Diet Recommendation puree;thin liquids * Plan of [...] dose epi. Intubated in field. Arrived at [facility] ED intubated. Received 6 units pRBC. Transferred to [facility] and went to OR with vascular for [...] by Miguel Angel Moreno MD at [facility] MAIN OR ??? PRO DECOMPRESS FOREARM, BRACH ART EXPLOR Left 04/06/2018 FASCIOTOMY, FOREARM, WITH BRACHIAL ARTERY EXPLORATION (WRVU 8.41) performed by Lida Peter MDat [facility] MAIN OR ??? PRO DIRECT REPAIR RUPTURED ANEURYSM, AXILLO-BRACHIAL ARM INCIS Left 04/06/2018 @REPAIR, RUPTURED AXILLARY OR BRACHIAL ARTERY ANEURYSM BY ARM INCISION (WRVU *) performed by Lida Peter MD at [facility] MAIN OR ??? PRO EXC PAROTD, TOTAL, UNILAT RAD NECK Left 02/05/2016 @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, TOTAL, WITH UNILATERAL RADICAL NECK DISSECTION performed by Miguel Angel Moreno MD at [facility] MAIN OR ??? PRO EXC SKIN MALIG 3.1-4CM FACE, FACIAL Left 02/05/2016 EXC MALIGNANT LESION, 3.1 TO 4.0CM, FACE performed by Miguel Angel Moreno MD at [facility] MAIN OR ? ? PRO EXC SKIN MALIG >4CM TRUNK, ARM, LEG 04/19/2012 EXC MALIGNANT LESION, MICHAEL > 4.0CM, TRUNK performed by SABRINA MEDRANO at [facility] MAIN OR ??? PRO LAP, RADICAL NEPHRECTOMY Left 05/31/2017 @LAPAROSCOPY, RADICAL NEPHRECTOMY (WRVU 25.06) performed by Jax Mills MD at [facility] MAIN OR ??? PRO REBL VES GRAFT, UP EXTREM Left 04/06/2018 REPAIR BLOOD VESSEL WITH GRAFT OTHER THAN VEIN, UPPER EXTREMITY (WRVU 15.83) performed by Lida Peter MD at [facility] MAIN OR ??? PRO RELIEVE PRESSURE ON NERVE(S) Left 04/06/2018 (MSURG) CARPAL TUNNEL (WRVU 4.82) performed by Hay Sparks MD at [facility] MAIN OR ??? PRO REPAIR INTERMEDIATE S/A/T/E 2.6-7.5 CM 04/19/2012 REPAIR INTERMEDIATE WOUND, (NO HANDS OR FEET) 2.6 TO 7.5CM, UPPER EXTREMITY performed by SABRINA MEDRANO at [facility] MAIN OR ??? PRO REVISE MEDIAN N/CARPAL TUNNEL SURG Left 04/06/2018 MEDIAN NERVE DECOMPRESSION (CARPAL TUNNEL RELEASE) (WRVU 4.97) performed by Lida Peter MD [facility] MAIN OR ? ? PRO SPLIT GRFT, HEAD, FAC, HAND, FEET <100SQCM N/A 02/20/2016 SPLIT THICKNESS SKIN SPLIT GRAFT,100SQ CM OR LESS, NECK performed by Miguel Angel Moreno MD at [facility] MAIN OR ??? PRO UPPER GI ENDOSCOPY, BIOPSY N/A 05/13/2017 EGD WITH BIOPSY (WRVU 2.49) performed by Aditya Barrera MD at [facility] ENDOSCOPY ??? PRO VASCULAR SURGERY PROCEDURE UNLIST Left 11/20/2015 LIGATION\REPAIR AV FISTULA performed by Camilo Ireland MD at [facility] MAIN OR ??? PRO VASCULAR SURGERY PROCEDURE UNLIST Left 11/20/2015 EXCISION VEIN FROM HAND performed by Camilo Ireland MD at [facility] MAIN OR ??? 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 [...] extension 5/5 R, Elbow flexion 5/5 R Basket Machine Operator LE: 5/5 R, 5/5 L Hip flexion [...] Decreased RBC Morphology Abnormal Ovalocytes 1-5 /HPF [place] Cells 1-5 /HPF BLOOD GAS 2 ARTERIAL [...] 04/07/2018 Neurology resident, PGY-3 Vascular Neurology Pager [phone] Standard [facility] Swallow Screen: This screen is to be [...] diet as medical provider deems appropriate. Consider DIGITAL MEASUREMENT ADVISOR consult for full evaluation and diet recommendations. 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 Apparently patient was found at his home unresponsive and was pulseless requiring several rounds of chest compressions,epinephrine and IV fluid bolus with a return of spontaneous circulation.Intubated in the field and taken to [facility] received 6 units of the PRBCs,2 FFPs for hemoglobin of 4 and required 2 tourniquets for his AV fistula leaking. Transferred to [facility] and was taken to OR by vascular [...] by Miguel Angel Moreno MD at [facility] MAIN OR ??? PRO EXC PAROTD, [...] 4.0CM, TRUNK performed by SABRINA MEDRANO at [facility] OR ??? PRO LAP, RADICAL NEPHRECTOMY Left 05/31/2017 @LAPAROSCOPY, RADICAL NEPHRECTOMY (WRVU 25.06) performed by Jax Mills MD at [facility] OR ??? PRO REPAIR INTERMEDIATE S/A/T/E 2.6-7.5 CM 04/19/2012 REPAIR INTERMEDIATE WOUND, (NO HANDS OR FEET) 2.6 TO 7.5CM, UPPER EXTREMITY performed by SABRINA MEDRANO at [facility] OR ? ? PRO SPLIT GRFT, HEAD, FAC, HAND, FEET <100SQCM N/A 02/20/2016 SPLIT THICKNESS SKIN SPLIT GRAFT,100SQ CM OR LESS, NECK performed by Miguel Angel Moreno MD at [facility] OR ??? PRO UPPER GI ENDOSCOPY, BIOPSY N/A 05/13/2017 EGD WITH BIOPSY (WRVU 2.49) performed by Aditya Barrera MD at [facility] ENDOSCOPY ??? PRO VASCULAR SURGERY PROCEDURE UNLIST Left 11/20/2015 LIGATION\REPAIR AV FISTULA performed by Camilo Ireland MD at [facility] OR ??? PRO VASCULAR SURGERY PROCEDURE UNLIST Left 11/20/2015 EXCISION VEIN FROM HAND performed by Camilo Ireland MD at [facility] MAIN OR ??? US RENAL TRANSPLANT BIOPSY [...] Latest Ref Range: Clear Hazy (A) Spec [place] UA Latest Ref Range: 1.002 - 1.030 [...] nodes submitted or found IMPRESSION/ RECOMMENDATIONS: Christy Ginna Delunaon is a 57 y/o M with [...] w/ Dr.Chobanian Radha Hughes MD Nephrology Fellow #[id number] * Op Note - Bhargavi Junior MD - 04/07/2018 7:56 AM EDT [facility] Operative Note Patient Name: Christy Ambrose : [id number] MR#: [id number] Case Date: 04/06/2018 Surgeon: Surgeon(s) and Role: [...] he was found down. He presented to [facility] in hemorrhagic shock with 2 tourniquets on [...] Implant Name Type Inv. Item Serial No. Assembler Fluorescent Lights Lot No. LRB No. Used Action PATCH,BIOL,XENOSURE,.8X8CM ([id number]) - [id number] IMPLANTS PATCH,BIOL,XENOSURE,.8X8CM ([id number]) 0 [facility] [id number] Implanted Infection Bundle used? No, ancef [...] Operative Note Patient Name: Christy Ambrose : [id number] MR#: [id number] Case Date: 04/06/2018 Surgeon: Surgeon(s) and Role: [...] Sparks MD - 04/06/2018 4:00 PM EDT [facility] Operative Note Patient Name: Christy Ambrose : [id number] MR#: [id number] Case Date: 04/06/2018 Surgeon: Surgeon(s) and Role: [...] Routine 04/07/2018 5:56 AM EDT CARDIAC ENZYMES (MC/CGP) Routine 04/07/2018 5:55 AM EDT HEMOGLOBIN AND [...] IMPLANTABLE DEVICES SCAN 04/06/2018 12:00 AM EDT TIRE FABRIC IMPREGNATING RANGE TENDER SCAN 04/06/2018 12:00 AM EDT FILM LIBRARY STORAGE ONLY CT HEAD AND SPINE STAT 04/06/2018 12:00 AM EDT documented in this encounter Results * (ABNORMAL) Basic Metabolic Panel (non-fasting) (05/04/2018 3:00 AM EDT) Glucose 100 65 - 199 mg/dL [facility] Comment:Diabetes: >=200 mg/d L plus symptoms Blood Urea Nitrogen 40(H) 10 - 20 mg/dL [facility] Creatinine 3.05(H) 0.80 - 1.50 mg/dL [facility] Sodium 131(L) 135 - 145 mmol/L [facility] Potassium 4.1 3.5 - 5.0 mmol/L [facility] Comment: Please note: ??Patients with WBC >100,000 may have falsely elevated Potassium levels. ??For accurate Potassium quantification in these patients send serum separator tube (gold top) for subsequent determinations. ??Contact the Clinical Chemistry Laboratory if there are any questions. Chloride 99 98 - 107 mmol/L [facility] Carbon Dioxide 19(L) 22 - 31 mmol/L [facility] Anion Gap 13 5 - 15 mmol/L [facility] Calcium 8.0(L) 8.5 - 10.5 mg/dL [facility] Est Glomerular Filtration Rate 22(L) >=60 mL/min/1. 73 m?? [facility] Comment: The eGFR was calculated using the CKD-EPI equation. As with all creatinine based estimates of kidney function, eGFR values calculated with the CKD-EPI equation are not accurate in patients with acute kidney failure, extremes of body mass or the acutely ill. [email or web address] eGFR 25(L) >=60 mL/min/1. 73 m?? [facility] Comment: The eGFR was calculated using the CKD-EPI equation. As with all creatinine based estimates of kidney function, eGFR values calculated with the CKD-EPI equation are not accurate in patients with acute kidney failure, extremes of body mass or the acutely ill. [email or web address] Blood specimen (specimen) 05/04/2018 3:00 AM EDT 05/04/2018 3:08 AM EDT Narrative Resulting Agency Comment Spec In Lab Hay Sparks MD CHEMISTRY ORDERABLES Performing Organization Address [facility] Co de Phone Number [facility] [place] [address] * Vancomycin, trough (05/03/2018 6:40 PM EDT) Pathologist [facility] Vancomycin, Trough 14.2 mg/L [facility] Comment: Therapeutic range [...] Sparks MD CHEMISTRY ORDERABLES Performing Organization Address [facility] Co de Phone Number [facility] [place] [address] * Differential, Automated (05/03/2018 3:06 AM EDT) Pathologist [facility] Neutrophil % 60.8 % [facility] Neutrophil Absolute 3.01 1.70 - 6.10 x10(3)/[facility] Lymph % 19.8 % [facility] Lymphocytes Abs 1.0 0.9 - 3.2 x10(3)/[facility] Monocyte % 10.7 % [facility] Monocyte Abs 0.5 0.3 - 0.9 x10(3)/[facility] Eos % 8.1 % [facility] Eosinophils Abs 0.4 0.0 - 0.4 x10(3)/[facility] Basophil % 0.4 % [facility] Baso Absolute 0.0 0.0 - 0.1 x10(3)/[facility] Immature Gran % 0.20 % [facility] Comment: Immature granulocytes(IG's)percentage and absolute count will include metamyelocytes, myelocytes, and promyelocytes. Blood smears from CBCs yielding IG's will be scanned manually for concordance. If this scan disagrees with the automated IG or if promyelocytes are noted, a manual differential will be performed. Immature Gran Absolute 0.01 0.00 - 0.04 x10(3)/[facility] Blood specimen (specimen) 05/03/2018 3:06 AM EDT 05/03/2018 3:16 AM EDT Narrative Resulting Agency Comment Spec In Lab Apple Gutierrez MD HEMATOLOGY ORDERABLE S Performing Organization Address City/State/[facility] Co de Phone Number [facility] [place] [address] * (ABNORMAL) Hemogram (05/03/2018 3:06 AM EDT) White Blood Cell 5.0 4.0 - 9.5 x10(3)/[facility] Red Blood Cell 2.64(L) 4.58 - 5.54 x10(6)/ L [facility] Hemoglobin 8.2(L) 13.7 - 16.5 gm/dL [facility] Hematocrit 25.1(L) 40.5 - 48.5 % [facility] Mean Cell Volume 95.1(H) 82.9 - 93.1 fL [facility] Mean Cell Hemoglobin 31.1 27.5 - 32.1 pg [facility] Mean Cell Hemoglobin Concentration 32.7 32.0 - 35.7 gm/dL [facility] Platelet 160 145 - 357 x10(3)/[facility] RDW Standard Deviation 54.3(H) 36.0 - 45.0 fL [facility] RDW coefficient of variation 15.6(H) 11.4 - 13.8 % [facility] Mean Platelet Volume 9.0 7.6 - 12.9 fL [facility] NRBC% auto 0.0 % [facility] NRBC Absolute 0.000 0.000 - 0.000 x10(3)/mc L [facility] Blood specimen (specimen) 05/03/2018 3:06 AM EDT 05/03/2018 3:16 AM EDT Narrative Resulting Agency Comment Spec In Lab Apple Gutierrez MD HEMATOLOGY ORDERABLE S [facility] [place] [address] * (ABNORMAL) Basic Metabolic Panel (non-fasting) (05/03/2018 3:06 AM EDT) Glucose 99 65 - 199 mg/dL [facility] Comment:Diabetes: >=200 mg/d L plus symptoms Blood Urea Nitrogen 35(H) 10 - 20 mg/dL [facility] Creatinine 2.58(H) 0.80 - 1.50 mg/dL [facility] Sodium 135 135 - 145 mmol/L [facility] Potassium 4.2 3.5 - 5.0 mmol/L [facility] Comment: Please note: ??Patients with WBC >100,000 may have falsely elevated Potassium levels. ??For accurate Potassium quantification in these patients send serum separator tube (gold top) for subsequent determinations. ??Contact the Clinical Chemistry Laboratory if there are any questions. Chloride 101 98 - 107 mmol/L [facility] Carbon Dioxide 20(L) 22 - 31 mmol/L [facility] Anion Gap 14 5 - 15 mmol/L [facility] Calcium 7.9(L) 8.5 - 10.5 mg/dL [facility] Est Glomerular Filtration Rate 27(L) >=60 mL/min/1. 73 m?? [facility] Comment: The eGFR was calculated using the CKD-EPI equation. As with all creatinine based estimates of kidney function, eGFR values calculated with the CKD-EPI equation are not accurate in patients with acute kidney failure, extremes of body mass or the acutely ill. [email or web address] eGFR 31(L) >=60 mL/min/1. 73 m?? [facility] Comment: The eGFR was calculated using the CKD-EPI equation. As with all creatinine based estimates of kidney function, eGFR values calculated with the CKD-EPI equation are not accurate in patients with acute kidney failure, extremes of body mass or the acutely ill. [email or web address] Blood specimen (specimen) 05/03/2018 3:06 AM EDT 05/03/2018 3:16 AM EDT Narrative Resulting Agency Comment Spec In Lab Hay Sparks MD CHEMISTRY ORDERABLES Performing Organization Address City/State/[facility] Co de Phone Number [facility] [place] [address] * Differential, Automated (05/02/2018 3:20 AM EDT) Neutrophil % 60.2 % [facility] Neutrophil Absolute 2.89 1.70 - 6.10 x10(3)/[facility] Lymph % 20.8 % [facility] Lymphocytes Abs 1.0 0.9 - 3.2 x10(3)/[facility] Monocyte % 9.2 % [facility] Monocyte Abs 0.4 0.3 - 0.9 x10(3)/[facility] Eos % 8.8 % [facility] Eosinophils Abs 0.4 0.0 - 0.4 x10(3)/[facility] Basophil % 0.6 % [facility] Baso Absolute 0.0 0.0 - 0.1 x10(3)/[facility] Immature Gran % 0.40 % [facility] Comment: Immature granulocytes(IG's)percentage and absolute count will include metamyelocytes, myelocytes, and promyelocytes. Blood smears from CBCs yielding IG's will be scanned manually for concordance. If this scan disagrees with the automated IG or if promyelocytes are noted, a manual differential will be performed. Immature Gran Absolute 0.02 0.00 - 0.04 x10(3)/mcL [facility] Blood specimen (specimen) 05/02/2018 3:20 AM EDT 05/02/2018 3:26 AM EDT Narrative Resulting Agency Comment Spec In Lab Apple Gutierrez MD HEMATOLOGY ORDERABLE S [facility] [place] [address] * (ABNORMAL) Hemogram (05/02/2018 3:20 AM EDT) White Blood Cell 4.8 4.0 - 9.5 x10(3)/mc L [facility] Red Blood Cell 2.61(L) 4.58 - 5.54 x10(6)/mc L [facility] Hemoglobin 8.2(L) 13.7 - 16.5 gm/dL [facility] Hematocrit 24.6(L) 40.5 - 48.5 % [facility] Mean Cell Volume 94.3(H) 82.9 - 93.1 fL [facility] Mean Cell Hemoglobin 31.4 27.5 - 32.1 pg [facility] Mean Cell Hemoglobin Concentration 33.3 32.0 - 35.7 gm/dL [facility] Platelet 168 145 - 357 x10(3)/mc L [facility] RDW Standard Deviation 54.4(H) 36.0 - 45.0 fL [facility] RDW coefficient of variation 15.5(H) 11.4 - 13.8 % [facility] Mean Platelet Volume 8.7 7.6 - 12.9 fL [facility] NRBC% auto 0.0 % [facility] NRBC Absolute 0.000 0.000 - 0.000 x10(3)/mc L [facility] Blood specimen (specimen) 05/02/2018 3:20 AM EDT 05/02/2018 3:26 AM EDT Narrative Resulting Agency Comment Spec In Lab Apple Gutierrez MD HEMATOLOGY ORDERABLE S [facility] [address] * (ABNORMAL) Basic Metabolic Panel (non-fasting) (05/02/2018 3:20 AM EDT) Glucose 94 65 - 199 mg/dL [facility] Comment:Diabetes: >=200 mg/d L plus symptoms Blood Urea Nitrogen 38(H) 10 - 20 mg/dL [facility] Creatinine 2.73(H) 0.80 - 1.50 mg/dL [facility] Sodium 135 135 - 145 mmol/L [facility] Potassium 4.3 3.5 - 5.0 mmol/L [facility] Comment: Please note: ??Patients with WBC >100,000 may have falsely elevated Potassium levels. ??For accurate Potassium quantification in these patients send serum separator tube (gold top) for subsequent determinations. ??Contact the Clinical Chemistry Laboratory if there are any questions. Chloride 103 98 - 107 mmol/L [facility] Carbon Dioxide 19(L) 22 - 31 mmol/L [facility] Anion Gap 13 5 - 15 mmol/L [facility] Calcium 7.7(L) 8.5 - 10.5 mg/dL [facility] Est Glomerular Filtration Rate 25(L) >=60 mL/min/1. 73 m?? [facility] Comment: The eGFR was calculated using the CKD-EPI equation. As with all creatinine based estimates of kidney function, eGFR values calculated with the CKD-EPI equation are not accurate in patients with acute kidney failure, extremes of body mass or the acutely ill. [email or web address] eGFR 29(L) >=60 mL/min/1. 73 m?? [facility] Comment: The eGFR was calculated using the CKD-EPI equation. As with all creatinine based estimates of kidney function, eGFR values calculated with the CKD-EPI equation are not accurate in patients with acute kidney failure, extremes of body mass or the acutely ill. [email or web address] Blood specimen (specimen) 05/02/2018 3:20 AM EDT 05/02/2018 3:25 AM EDT Narrative Resulting Agency Comment Spec In Lab Hay Sparks MD CHEMISTRY ORDERABLES [facility] [place] [address] * Differential, Automated (05/01/2018 4:00 AM EDT) Neutrophil % 60.0 % [facility] Neutrophil Absolute 2.98 1.70 - 6.10 x10(3)/[facility] LABORATORY Lymph % 21.2 % [facility] Lymphocytes Abs 1.0 0.9 - 3.2 x10(3)/[facility] LABORATORY Monocyte % 9.7 % [facility] Monocyte Abs 0.5 0.3 - 0.9 x10(3)/[facility] LABORATORY Eos % 8.1 % [facility] Eosinophils Abs 0.4 0.0 - 0.4 x10(3)/[facility] LABORATORY Basophil % 0.8 % [facility] Baso Absolute 0.0 0.0 - 0.1 x10(3)/[facility] LABORATORY Immature Gran % 0.20 % [facility] Comment: Immature granulocytes(IG's)percentage and absolute count will include metamyelocytes, myelocytes, and promyelocytes. Blood smears from CBCs yielding IG's will be scanned manually for concordance. If this scan disagrees with the automated IG or if promyelocytes are noted, a manual differential will be performed. Immature Gran Absolute 0.01 0.00 - 0.04 x10(3)/mcL [facility] Blood specimen (specimen) 05/01/2018 4:00 AM EDT 05/01/2018 4:13 AM EDT Narrative Resulting Agency Comment Spec In Lab Apple Gutierrez MD HEMATOLOGY ORDERABLE S [facility] [place] [address] * (ABNORMAL) Hemogram (05/01/2018 4:00 AM EDT) White Blood Cell 5.0 4.0 - 9.5 x10(3)/mc L [facility] Red Blood Cell 2.71(L) 4.58 - 5.54 x10(6)/mc L [facility] Hemoglobin 8.2(L) 13.7 - 16.5 gm/dL [facility] Hematocrit 25.6(L) 40.5 - 48.5 % [facility] Mean Cell Volume 94.5(H) 82.9 - 93.1 fL [facility] Mean Cell Hemoglobin 30.3 27.5 - 32.1 pg [facility] Mean Cell Hemoglobin Concentration 32.0 32.0 - 35.7 gm/dL [facility] Platelet 192 145 - 357 x10(3)/mc L [facility] RDW Standard Deviation 53.5(H) 36.0 - 45.0 [facility] LAB[facility]ATORY RDW coefficient of variation 15.5(H) 11.4 - 13.8 % [facility] Mean Platelet Volume 8.9 7.6 - 12.9 [facility] LAB[facility]ATORY NRBC% auto 0.0 % [facility] NRBC Absolute 0.000 0.000 - 0.000 x10(3)/mc L [facility] Blood specimen (specimen) 05/01/2018 4:00 AM EDT 05/01/2018 4:13 AM EDT Narrative Resulting Agency Comment Spec In Lab Apple Gutierrez MD HEMATOLOGY ORDERABLE S [facility] [place] [address] * (ABNORMAL) Basic Metabolic Panel (non-fasting) (05/01/2018 4:00 AM EDT) Glucose 101 65 - 199 mg/dL [facility] Comment:Diabetes: >=200 mg/d L plus symptoms Blood Urea Nitrogen 36(H) 10 - 20 mg/dL [facility] Creatinine 2.66(H) 0.80 - 1.50 mg/dL [facility] Sodium 134(L) 135 - 145 mmol/L [facility] Potassium 3.9 3.5 - 5.0 mmol/L [facility] Comment: Please note: ??Patients with WBC >100,000 may have falsely elevated Potassium levels. ??For accurate Potassium quantification in these patients send serum separator tube (gold top) for subsequent determinations. ??Contact the Clinical Chemistry Laboratory if there are any questions. Chloride 101 98 - 107 mmol/L [facility] Carbon Dioxide 19(L) 22 - 31 mmol/L [facility] Anion Gap 14 5 - 15 mmol/L [facility] Calcium 8.0(L) 8.5 - 10.5 mg/dL [facility] Est Glomerular Filtration Rate 26(L) >=60 mL/min/1. 73 m?? [facility] Comment: The eGFR was calculated using the CKD-EPI equation. As with all creatinine based estimates of kidney function, eGFR values calculated with the CKD-EPI equation are not accurate in patients with acute kidney failure, extremes of body mass or the acutely ill. [email or web address]nkf eGFR 30(L) >=60 mL/min/1. 73 m?? [facility] Comment: The eGFR was calculated using the CKD-EPI equation. As with all creatinine based estimates of kidney function, eGFR values calculated with the CKD-EPI equation are not accurate in patients with acute kidney failure, extremes of body mass or the acutely ill. [email or web address] Blood specimen (specimen) 05/01/2018 4:00 AM EDT 05/01/2018 4:13 AM EDT Narrative Resulting Agency Comment Spec In Lab Hay Sparks MD CHEMISTRY ORDERABLES Performing Organization Address [facility] Co de Phone Number [facility] [place] [address] * Vancomycin, trough (04/30/2018 7:05 PM EDT) Vancomycin, Trough 15.3 mg/L [facility] Comment: Therapeutic range for [...] Sparks MD CHEMISTRY ORDERABLES Performing Organization Address City/[facility] Co de Phone Number [facility] [place] [address] * Differential, Automated (04/30/2018 2:55 AM EDT) Neutrophil % 60.3 % [facility] Neutrophil Absolute 3.15 1.70 - 6.10 x10(3)/mcL [facility] Lymph % 22.8 % [facility] Lymphocytes Abs 1.2 0.9 - 3.2 x10(3)/[facility] LABORATORY Monocyte % 10.2 % [facility] Monocyte Abs 0.5 0.3 - 0.9 x10(3)/[facility] LABORATORY Eos % 5.7 % [facility] Eosinophils Abs 0.3 0.0 - 0.4 x10(3)/[facility] LABORATORY Basophil % 0.6 % [facility] Baso Absolute 0.0 0.0 - 0.1 x10(3)/[facility] LABORATORY Immature Gran % 0.40 % [facility] Comment: Immature granulocytes(IG's)percentage and absolute count will include metamyelocytes, myelocytes, and promyelocytes. Blood smears from CBCs yielding IG's will be scanned manually for concordance. If this scan disagrees with the automated IG or if promyelocytes are noted, a manual differential will be performed. Immature Gran Absolute 0.02 0.00 - 0.04 x10(3)/[facility] LABORATORY Blood specimen (specimen) 04/30/2018 2:55 AM EDT 04/30/2018 3:06 AM EDT Narrative Resulting Agency Comment Spec In Lab Apple Gutierrez MD HEMATOLOGY ORDERABLE S [facility] [place] [address] * (ABNORMAL) Hemogram (04/30/2018 2:55 AM EDT) White Blood Cell 5.2 4.0 - 9.5 x10(3)/ L [facility] Red Blood Cell 2.53(L) 4.58 - 5.54 x10(6)/ L [facility] Hemoglobin 7.9(L) 13.7 - 16.5 gm/dL [facility] Hematocrit 24.3(L) 40.5 - 48.5 % [facility] Mean Cell Volume 96.0(H) 82.9 - 93.1 fL [facility] Mean Cell Hemoglobin 31.2 27.5 - 32.1 pg [facility] Mean Cell Hemoglobin Concentration 32.5 32.0 - 35.7 gm/dL [facility] Platelet 186 145 - 357 x10(3)/mc L [facility] RDW Standard Deviation 54.7(H) 36.0 - 45.0 fL [facility] RDW coefficient of variation 15.6(H) 11.4 - 13.8 % [facility] Mean Platelet Volume 8.7 7.6 - 12.9 fL [facility] NRBC% auto 0.0 % [facility] NRBC Absolute 0.000 0.000 - 0.000 x10(3)/mc L [facility] Blood specimen (specimen) 04/30/2018 2:55 AM EDT 04/30/2018 3:06 AM EDT Narrative Resulting Agency Comment Spec In Lab Apple Gutierrez MD HEMATOLOGY ORDERABLE S [facility] [place] [address] * (ABNORMAL) Basic Metabolic Panel (non-fasting) (04/30/2018 2:55 AM EDT) Glucose 96 65 - 199 mg/dL [facility] Comment:Diabetes: >=200 mg/d L plus symptoms Blood Urea Nitrogen 39(H) 10 - 20 mg/dL [facility] Creatinine 2.94(H) 0.80 - 1.50 mg/dL [facility] Sodium 135 135 - 145 mmol/L [facility] Potassium 4.5 3.5 - 5.0 mmol/L [facility] Comment: Please note: ??Patients with WBC >100,000 may have falsely elevated Potassium levels. ??For accurate Potassium quantification in these patients send serum separator tube (gold top) for subsequent determinations. ??Contact the Clinical Chemistry Laboratory if there are any questions. Chloride 100 98 - 107 mmol/L [facility] Carbon Dioxide 21(L) 22 - 31 mmol/L [facility] Anion Gap 14 5 - 15 mmol/L [facility] Calcium 8.1(L) 8.5 - 10.5 mg/dL [facility] Est Glomerular Filtration Rate 23(L) >=60 mL/min/1. 73 m?? [facility] Comment: The eGFR was calculated using the CKD-EPI equation. As with all creatinine based estimates of kidney function, eGFR values calculated with the CKD-EPI equation are not accurate in patients with acute kidney failure, extremes of body mass or the acutely ill. [email or web address]nkf eGFR 26(L) >=60 mL/min/1. 73 m?? [facility] Comment: The eGFR was calculated using the CKD-EPI equation. As with all creatinine based estimates of kidney function, eGFR values calculated with the CKD-EPI equation are not accurate in patients with acute kidney failure, extremes of body mass or the acutely ill. [email or web address] Blood specimen (specimen) 04/30/2018 2:55 AM EDT 04/30/2018 3:06 AM EDT Narrative Resulting Agency Comment Spec In Lab Hay Sparks MD CHEMISTRY ORDERABLES [facility] [place] [address] * Vancomycin, trough (04/29/2018 5:15 PM EDT) Vancomycin, Trough 15.9 mg/L [facility] Comment: Therapeutic range for [...] MD CHEMISTRY ORDERAB LES Performing Organization Address [facility] Co de Phone Number [facility] [place] [address] * Vancomycin, trough (04/29/2018 6:55 AM EDT) Vancomycin, Trough 19.5 mg/L [facility] Comment: Therapeutic range [...] Sparks MD CHEMISTRY ORDERABLES Performing Organization Address [facility] Co de Phone Number [facility] [place] [address] * Differential, Automated (04/29/2018 5:40 AM EDT) Neutrophil % 63.0 % [facility] Neutrophil Absolute 3.22 1.70 - 6.10 x10(3)/[facility] LABORATORY Lymph % 21.1 % [facility] Lymphocytes Abs 1.1 0.9 - 3.2 x10(3)/[facility] LABORATORY Monocyte % 9.0 % [facility] Monocyte Abs 0.5 0.3 - 0.9 x10(3)/[facility] LABORATORY Eos % 5.5 % [facility] Eosinophils Abs 0.3 0.0 - 0.4 x10(3)/[facility] LABORAT[facility] Basophil % 0.8 % [facility] Baso Absolute 0.0 0.0 - 0.1 x10(3)/[facility] LABORATORY Immature Gran % 0.60 % [facility] Comment: Immature granulocytes(IG's)percentage and absolute count will include metamyelocytes, myelocytes, and promyelocytes. Blood smears from CBCs yielding IG's will be scanned manually for concordance. If this scan disagrees with the automated IG or if promyelocytes are noted, a manual differential will be performed. Immature Gran Absolute 0.03 0.00 - 0.04 x10(3)/[facility] LABORATORY Blood specimen (specimen) 04/29/2018 5:40 AM EDT 04/29/2018 6:11 AM EDT Narrative Resulting Agency Comment Spec In Lab Apple Gutierrez MD HEMATOLOGY ORDERABLE S [facility] [place] [address] * (ABNORMAL) Hemogram (04/29/2018 5:40 AM EDT) White Blood Cell 5.1 4.0 - 9.5 x10(3)/mc L [facility] Red Blood Cell 2.56(L) 4.58 - 5.54 x10(6)/mc L [facility] Hemoglobin 7.7(L) 13.7 - 16.5 gm/dL [facility] Hematocrit 24.2(L) 40.5 - 48.5 % [facility] Mean Cell Volume 94.5(H) 82.9 - 93.1 fL [facility] Mean Cell Hemoglobin 30.1 27.5 - 32.1 pg [facility] Mean Cell Hemoglobin Concentration 31.8(L) 32.0 - 35.7 gm/dL [facility] Platelet 216 145 - 357 x10(3)/mc L [facility] RDW Standard Deviation 53.7(H) 36.0 - 45.0 fL [facility] RDW coefficient of variation 15.4(H) 11.4 - 13.8 % [facility] Mean Platelet Volume 8.9 7.6 - 12.9 fL [facility] NRBC% auto 0.0 % [facility] NRBC Absolute 0.000 0.000 - 0.000 x10(3)/mc L [facility] Blood specimen (specimen) 04/29/2018 5:40 AM EDT 04/29/2018 6:11 AM EDT Narrative Resulting Agency Comment Spec In Lab Apple Gutierrez MD HEMATOLOGY ORDERABLE S [facility] [place] [address] * (ABNORMAL) Basic Metabolic Panel (non-fasting) (04/29/2018 5:40 AM EDT) Glucose 91 65 - 199 mg/dL [facility] Comment:Diabetes: >=200 mg/d L plus symptoms Blood Urea Nitrogen 41(H) 10 - 20 mg/dL [facility] Creatinine 2.51(H) 0.80 - 1.50 mg/dL [facility] Sodium 136 135 - 145 mmol/L [facility] Potassium 4.9 3.5 - 5.0 mmol/L [facility] Comment: Please note: ??Patients with WBC >100,000 may have falsely elevated Potassium levels. ??For accurate Potassium quantification in these patients send serum separator tube (gold top) for subsequent determinations. ??Contact the Clinical Chemistry Laboratory if there are any questions. Chloride 104 98 - 107 mmol/L [facility] Carbon Dioxide 21(L) 22 - 31 mmol/L [facility] Anion Gap 11 5 - 15 mmol/L [facility] Calcium 8.0(L) 8.5 - 10.5 mg/dL [facility] Est Glomerular Filtration Rate 28(L) >=60 mL/min/1. 73 m?? [facility] Comment: The eGFR was calculated using the CKD-EPI equation. As with all creatinine based estimates of kidney function, eGFR values calculated with the CKD-EPI equation are not accurate in patients with acute kidney failure, extremes of body mass or the acutely ill. [email or web address] eGFR 32(L) >=60 mL/min/1. 73 m?? [facility] Comment: The eGFR was calculated using the CKD-EPI equation. As with all creatinine based estimates of kidney function, eGFR values calculated with the CKD-EPI equation are not accurate in patients with acute kidney failure, extremes of body mass or the acutely ill. [email or web address] Blood specimen (specimen) 04/29/2018 5:40 AM EDT 04/29/2018 6:11 AM EDT Narrative Resulting Agency Comment Spec In Lab Hay Sparks MD CHEMISTRY ORDERABLES [facility] [place] [address] * (ABNORMAL) Vancomycin, trough (04/28/2018 1:09 PM EDT) Vancomycin, Trough 21.6(Crit ical) mg/L [facility] Comment: Called by: MASSIEL, Read back [...] Sparks MD CHEMISTRY ORDERABLES Performing Organization Address [facility] Co de Phone Number [facility] [place] [address] * EKG 12 Lead (04/28/2018 7:17 AM EDT) Ventricular rate 51 BPM MUSE SYSTEM Atrial Rate 51 BPM MUSE SYSTEM P-R Interval 162 ms MUSE SYSTEM QRS Duration 92 ms MUSE SYSTEM Q-T Interval 442 ms MUSE SYSTEM QTC Calculated (Bezet) 407 ms MUSE SYSTEM Calculated P [place] 59 degrees MUSE SYSTEM Calculated R [place] 35 degrees MUSE SYSTEM Calculated T [place] 34 degrees MUSE SYSTEM INTERPRETATION Sinus bradycardia Otherwise normal ECG When compared with ECG of 26-MAY-2017 11:16, No significant change was found Confirmed by MD Aure, Sukumar Rubi ([id number]) on 04/29/2018 1:34:03 PM MUSE SYSTEM 04/28/2018 7:17 AM EDT 04/29/2018 1:34 PM EDT Chase Olvera MD ECG ORDERABLES Performing Organization Address [facility] Co de Phone Number MUSE SYSTEM * Differential, Automated (04/28/2018 4:40 AM EDT) Neutrophil % 66.6 % [facility] Neutrophil Absolute 4.11 1.70 - 6.10 x10(3)/[facility] LAB[facility] Lymph % 23.5 % [facility] Lymphocytes Abs 1.4 0.9 - 3.2 x10(3)/[facility] Monocyte % 7.8 % [facility] Monocyte Abs 0.5 0.3 - 0.9 x10(3)/[facility] Eos % 1.5 % [facility] Eosinophils Abs 0.1 0.0 - 0.4 x10(3)/[facility] Basophil % 0.3 % [facility] Baso Absolute 0.0 0.0 - 0.1 x10(3)/[facility] Immature Gran % 0.30 % [facility] Comment: Immature granulocytes(IG's)percentage and absolute count will include metamyelocytes, myelocytes, and promyelocytes. Blood smears from CBCs yielding IG's will be scanned manually for concordance. If this scan disagrees with the automated IG or if promyelocytes are noted, a manual differential will be performed. Immature Gran Absolute 0.02 0.00 - 0.04 x10(3)/[facility] LAB[facility] Blood specimen (specimen) 04/28/2018 4:40 AM EDT 04/28/2018 4:53 AM EDT Narrative Resulting Agency Comment Spec In Lab Apple Gutierrez MD HEMATOLOGY ORDERABLE S Performing Organization Address City/State/[facility] Co de Phone Number [facility] [place] [address] * (ABNORMAL) Hemogram (04/28/2018 4:40 AM EDT) White Blood Cell 6.2 4.0 - 9.5 x10(3)/mc L [facility] Red Blood Cell 2.54(L) 4.58 - 5.54 x10(6)/mc L [facility] Hemoglobin 7.6(L) 13.7 - 16.5 gm/dL [facility] Hematocrit 24.3(L) 40.5 - 48.5 % [facility] Mean Cell Volume 95.7(H) 82.9 - 93.1 fL [facility] Mean Cell Hemoglobin 29.9 27.5 - 32.1 pg [facility] Mean Cell Hemoglobin Concentration 31.3(L) 32.0 - 35.7 gm/dL [facility] Platelet 249 145 - 357 x10(3)/[facility] LABORATORY RDW Standard Deviation 55.3(H) 36.0 - 45.0 fL [facility] RDW coefficient of variation 15.6(H) 11.4 - 13.8 % [facility] Mean Platelet Volume 8.7 7.6 - 12.9 fL [facility] NRBC% auto 0.0 % [facility] NRBC Absolute 0.000 0.000 - 0.000 x10(3)/mc L [facility] Blood specimen (specimen) 04/28/2018 4:40 AM EDT 04/28/2018 4:53 AM EDT Narrative Resulting Agency Comment Spec In Lab Apple Gutierrez MD HEMATOLOGY ORDERABLE S [facility] [place] [address] * (ABNORMAL) Basic Metabolic Panel (non-fasting) (04/28/2018 4:40 AM EDT) Glucose 94 65 - 199 mg/dL [facility] Comment:Diabetes: >=200 mg/d L plus symptoms Blood Urea Nitrogen 44(H) 10 - 20 mg/dL [facility] Creatinine 2.80(H) 0.80 - 1.50 mg/dL [facility] Sodium 133(L) 135 - 145 mmol/L [facility] Potassium 4.9 3.5 - 5.0 mmol/L [facility] Comment: Please note: ??Patients with WBC >100,000 may have falsely elevated Potassium levels. ??For accurate Potassium quantification in these patients send serum separator tube (gold top) for subsequent determinations. ??Contact the Clinical Chemistry Laboratory if there are any questions. Chloride 101 98 - 107 mmol/L [facility] Carbon Dioxide 20(L) 22 - 31 mmol/L [facility] Anion Gap 12 5 - 15 mmol/L [facility] Calcium 8.1(L) 8.5 - 10.5 mg/dL [facility] Est Glomerular Filtration Rate 24(L) >=60 mL/min/1. 73 m?? [facility] Comment: The eGFR was calculated using the CKD-EPI equation. As with all creatinine based estimates of kidney function, eGFR values calculated with the CKD-EPI equation are not accurate in patients with acute kidney failure, extremes of body mass or the acutely ill. [email or web address] eGFR 28(L) >=60 mL/min/1. 73 m?? [facility] Comment: The eGFR was calculated using the CKD-EPI equation. As with all creatinine based estimates of kidney function, eGFR values calculated with the CKD-EPI equation are not accurate in patients with acute kidney failure, extremes of body mass or the acutely ill. [email or web address] Blood specimen (specimen) 04/28/2018 4:40 AM EDT 04/28/2018 4:53 AM EDT Narrative Resulting Agency Comment Spec In Lab Hay Sparks MD CHEMISTRY ORDERABLES Performing Organization Address [facility] Co de Phone Number [facility] [place] [address] * Vancomycin, trough (04/27/2018 1:30 PM EDT) [facility] Vancomycin, Trough 11.1 mg/L [facility] Comment: Therapeutic range for [...] Sparks MD CHEMISTRY ORDERABLES Performing Organization Address City/[facility]/ZIP Co de Phone Number [facility] [place] [address] * XR PICC Placement Over 5 Years [...] Absolute 4.96 1.70 - 6.10 x10(3)/mc L [facility] Lymph % 9.7 % [facility] Lymphocytes Abs 0.6(L) 0.9 - 3.2 x10(3)/mc L [facility] Monocyte % 5.5 % [facility] Monocyte Abs 0.3 0.3 - 0.9 x10(3)/mc L [facility] Eos % 0.0 % [facility] Eosinophils Abs 0.0 0.0 - 0.4 x10(3)/mc L [facility] Basophil % 0.2 % [facility] Baso Absolute 0.0 0.0 - 0.1 x10(3)/[facility] LABORAT[facility] Immature Gran % 0.20 % [facility] LABORATORY Comment: Immature granulocytes(IG's)percentage and absolute count will include metamyelocytes, myelocytes, and promyelocytes. Blood smears from CBCs yielding IG's will be scanned manually for concordance. If this scan disagrees with the automated IG or if promyelocytes are noted, a manual differential will be performed. Immature Gran Absolute 0.01 0.00 - 0.04 x10(3)/[facility] LABORATORY Blood specimen (specimen) 04/27/2018 4:43 AM EDT 04/27/2018 5:16 AM EDT Narrative Resulting Agency Comment Spec In Lab Apple Gutierrez MD HEMATOLOGY ORDERABLE S Performing Organization Address City/State/[facility] Co de Phone Number [facility] [address] * (ABNORMAL) Hemogram (04/27/2018 4:43 AM EDT) White Blood Cell 5.9 4.0 - 9.5 x10(3)/[facility] LABORATORY Red Blood Cell 2.81(L) 4.58 - 5.54 x10(6)/[facility] LABORATORY Hemoglobin 8.8(L) 13.7 - 16.5 gm/dL [facility]ORATORY Hematocrit 27.0(L) 40.5 - 48.5 % [facility] Mean Cell Volume 96.1(H) 82.9 - 93.1 fL [facility] Mean Cell Hemoglobin 31.3 27.5 - 32.1 pg [facility] Mean Cell Hemoglobin Concentration 32.6 32.0 - 35.7 gm/dL [facility] Platelet 302 145 - 357 x10(3)/[facility] LABORATORY RDW Standard Deviation 54.9(H) 36.0 - 45.0 fL [facility] RDW coefficient of variation 15.5(H) 11.4 - 13.8 % [facility] Mean Platelet Volume 8.8 7.6 - 12.9 fL [facility] NRBC% auto 0.0 % [facility] NRBC Absolute 0.000 0.000 - 0.000 x10(3)/mc L [facility] Blood specimen (specimen) 04/27/2018 4:43 AM EDT 04/27/2018 5:16 AM EDT Narrative Resulting Agency Comment Spec In Lab Apple Gutierrez MD HEMATOLOGY ORDERABLE S [facility] [place] [address] * (ABNORMAL) Basic Metabolic Panel (non-fasting) (04/27/2018 4:43 AM EDT) Glucose 142 65 - 199 mg/dL [facility] Comment:Diabetes: >=200 mg/d L plus symptoms Blood Urea Nitrogen 41(H) 10 - 20 mg/dL [facility] Creatinine 2.81(H) 0.80 - 1.50 mg/dL [facility] Sodium 132(L) 135 - 145 mmol/L [facility] Potassium 5.6(H) 3.5 - 5.0 mmol/L [facility] Comment: Please note: ??Patients with WBC >100,000 may have falsely elevated Potassium levels. ??For accurate Potassium quantification in these patients send serum separator tube (gold top) for subsequent determinations. ??Contact the Clinical Chemistry Laboratory if there are any questions. Chloride 101 98 - 107 mmol/L [facility] Carbon Dioxide 18(L) 22 - 31 mmol/L [facility] Anion Gap 13 5 - 15 mmol/L [facility] Calcium 8.4(L) 8.5 - 10.5 mg/dL [facility] Est Glomerular Filtration Rate 24(L) >=60 mL/min/1. 73 m?? [facility] Comment: The eGFR was calculated using the CKD-EPI equation. As with all creatinine based estimates of kidney function, eGFR values calculated with the CKD-EPI equation are not accurate in patients with acute kidney failure, extremes of body mass or the acutely ill. http://[employer]/[facility] IDABELnkf eGFR 28(L) >=60 mL/min/1. 73 m?? [facility] Comment: The eGFR was calculated using the CKD-EPI equation. As with all creatinine based estimates of kidney function, eGFR values calculated with the CKD-EPI equation are not accurate in patients with acute kidney failure, extremes of body mass or the acutely ill. [email or web address]/[facility] IDABELnkf Blood specimen (specimen) 04/27/2018 4:43 AM EDT 04/27/2018 5:16 AM EDT Narrative Resulting Agency Comment Spec In Lab Hay Sparks MD CHEMISTRY ORDERABLES [facility] [place] [address] * (ABNORMAL) Hemogram (04/26/2018 3:09 PM EDT) White Blood Cell 4.8 4.0 - 9.5 x10(3)/mc L [facility] Red Blood Cell 2.90(L) 4.58 - 5.54 x10(6)/mc L [facility] Hemoglobin 8.8(L) 13.7 - 16.5 gm/dL [facility] Hematocrit 27.5(L) 40.5 - 48.5 % [facility] Mean Cell Volume 94.8(H) 82.9 - 93.1 fL [facility] Mean Cell Hemoglobin 30.3 27.5 - 32.1 pg [facility] Mean Cell Hemoglobin Concentration 32.0 32.0 - 35.7 gm/dL [facility] Platelet 273 145 - 357 x10(3)/mc L [facility] RDW Standard Deviation 55.8(H) 36.0 - 45.0 fL [facility] RDW coefficient of variation 15.9(H) 11.4 - 13.8 % [facility] Mean Platelet Volume 9.1 7.6 - 12.9 fL [facility] NRBC% auto 0.0 % [facility] NRBC Absolute 0.000 0.000 - 0.000 x10(3)/mc L [facility] Blood specimen (specimen) 04/26/2018 3:09 PM EDT 04/26/2018 3:16 PM EDT Narrative Resulting Agency Comment Spec In Lab Chase Olvera MD HEMATOLOGY ORDERA BLES Performing Organization Address [facility] Co de Phone Number [facility] [place] [address] * Vancomycin, trough (04/26/2018 2:15 PM EDT) Vancomycin, Trough 11.8 mg/L [facility] Comment: Therapeutic range [...] Sparks MD CHEMISTRY ORDERABLES Performing Organization Address [facility] Co de Phone Number [facility] [place] [address] * ABORH Recheck Status (04/26/2018 11:42 AM EDT) ABORH Type Recheck Completed [facility] Blood specimen (specimen) 04/26/2018 11:42 AM EDT 04/26/2018 11:42 AM EDT Narrative Resulting Agency Comment Spec In Lab Natalya Jacobsen MD BLOOD BANK LAB ORDER KELLY [facility] [place] [address] * Antibody screen (04/26/2018 11:42 AM EDT) Pathologist [facility] Ab Screen Interp Negative [facility] Expires at [id number] on: 04/29/2018 [facility] Blood specimen (specimen) 04/26/2018 11:42 AM EDT 04/26/2018 11:42 AM EDT Narrative Resulting Agency Comment Spec In Lab Natalya Jacobsen MD BLOOD BANK LAB ORDER KELLY Performing Organization Address City/[facility]/ZIP Co de Phone Number [facility] [place] [address] * ABO/Rh Typing (04/26/2018 11:42 AM EDT) Pathologist [facility] ABORH Type A Pos [facility] Blood specimen (specimen) 04/26/2018 11:42 AM EDT 04/26/2018 11:42 AM EDT Narrative Resulting Agency Comment Spec In Lab Natalya Jacobsen MD BLOOD BANK LAB ORDER KELLY [facility] [place] [address] * Differential, Automated (04/26/2018 4:39 AM EDT) Neutrophil % 55.1 % [facility] Neutrophil Absolute 2.56 1.70 - 6.10 x10(3)/mcL [facility] Lymph % 27.7 % [facility] LABORAT[facility] Lymphocytes Abs 1.3 0.9 - 3.2 x10(3)/[facility] LABORATORY Monocyte % 10.5 % [facility] Monocyte Abs 0.5 0.3 - 0.9 x10(3)/[facility] LABORATORY Eos % 5.2 % [facility] Eosinophils Abs 0.2 0.0 - 0.4 x10(3)/[facility] LABORATORY Basophil % 1.3 % [facility] Baso Absolute 0.1 0.0 - 0.1 x10(3)/[facility] LABORATORY Immature Gran % 0.20 % [facility] Comment: Immature granulocytes(IG's)percentage and absolute count will include metamyelocytes, myelocytes, and promyelocytes. Blood smears from CBCs yielding IG's will be scanned manually for concordance. If this scan disagrees with the automated IG or if promyelocytes are noted, a manual differential will be performed. Immature Gran Absolute 0.01 0.00 - 0.04 x10(3)/[facility] LABORATORY Blood specimen (specimen) 04/26/2018 4:39 AM EDT 04/26/2018 4:58 AM EDT Narrative Resulting Agency Comment Spec In Lab Apple Gutierrez MD HEMATOLOGY ORDERABLE S [facility] [place] [address] * (ABNORMAL) Hemogram (04/26/2018 4:39 AM EDT) White Blood Cell 4.6 4.0 - 9.5 x10(3)/mc L [facility] Red Blood Cell 2.58(L) 4.58 - 5.54 x10(6)/mc L [facility] Hemoglobin 7.9(L) 13.7 - 16.5 gm/dL [facility] Hematocrit 24.6(L) 40.5 - 48.5 % [facility] Mean Cell Volume 95.3(H) 82.9 - 93.1 fL [facility] Mean Cell Hemoglobin 30.6 27.5 - 32.1 pg [facility] Mean Cell Hemoglobin Concentration 32.1 32.0 - 35.7 gm/dL [facility] Platelet 253 145 - 357 x10(3)/mc L [facility] RDW Standard Deviation 54.4(H) 36.0 - 45.0 fL [facility] RDW coefficient of variation 15.7(H) 11.4 - 13.8 % [facility] Mean Platelet Volume 8.4 7.6 - 12.9 fL [facility] NRBC% auto 0.0 % [facility] NRBC Absolute 0.000 0.000 - 0.000 x10(3)/mc L [facility] Blood specimen (specimen) 04/26/2018 4:39 AM EDT 04/26/2018 4:58 AM EDT Narrative Resulting Agency Comment Spec In Lab Apple Gutierrez MD HEMATOLOGY ORDERABLE S [facility] [place] [address] * (ABNORMAL) Basic Metabolic Panel (non-fasting) (04/26/2018 4:39 AM EDT) Glucose 93 65 - 199 mg/dL [facility] Comment:Diabetes: >=200 mg/d L plus symptoms Blood Urea Nitrogen 37(H) 10 - 20 mg/dL [facility] Creatinine 2.80(H) 0.80 - 1.50 mg/dL [facility] Sodium 138 135 - 145 mmol/L [facility] Potassium 5.2(H) 3.5 - 5.0 mmol/L [facility] Comment: Please note: ??Patients with WBC >100,000 may have falsely elevated Potassium levels. ??For accurate Potassium quantification in these patients send serum separator tube (gold top) for subsequent determinations. ??Contact the Clinical Chemistry Laboratory if there are any questions. Chloride 106 98 - 107 mmol/L [facility] Carbon Dioxide 19(L) 22 - 31 mmol/L [facility] Anion Gap 13 5 - 15 mmol/L [facility] Calcium 8.2(L) 8.5 - 10.5 mg/dL [facility] Est Glomerular Filtration Rate 24(L) >=60 mL/min/1. 73 m?? [facility] Comment: The eGFR was calculated using the CKD-EPI equation. As with all creatinine based estimates of kidney function, eGFR values calculated with the CKD-EPI equation are not accurate in patients with acute kidney failure, extremes of body mass or the acutely ill. http://[employer]/[facility] IDABELAmpliPhi Biosciences eGFR 28(L) >=60 mL/min/1. 73 m?? [facility] Comment: The eGFR was calculated using the CKD-EPI equation. As with all creatinine based estimates of kidney function, eGFR values calculated with the CKD-EPI equation are not accurate in patients with acute kidney failure, extremes of body mass or the acutely ill. http://[employer]/[facility] IDABELnkf Blood specimen (specimen) 04/26/2018 4:39 AM EDT 04/26/2018 4:58 AM EDT Narrative Resulting Agency Comment Spec In Lab Hay Sparks MD CHEMISTRY ORDERABLES [facility] [place] [address] * SCAN DOC: ECG (04/26/2018 12:00 AM EDT) Narrative 04/26/2018 12:00 AM EDT Ordered by an unspecified provider. Scanning Provider MEDIA MGR SCAN EXT O RDR/RSLT * Differential, Automated (04/25/2018 5:18 AM EDT) Neutrophil % 64.9 % [facility] Neutrophil Absolute 3.49 1.70 - 6.10 x10(3)/mcL [facility] Lymph % 20.4 % [facility] Lymphocytes Abs 1.1 0.9 - 3.2 x10(3)/[facility] LABORATORY Monocyte % 8.0 % [facility] Monocyte Abs 0.4 0.3 - 0.9 x10(3)/[facility] LABORATORY Eos % 4.8 % [facility] Eosinophils Abs 0.3 0.0 - 0.4 x10(3)/[facility] LABORATORY Basophil % 1.5 % [facility] Baso Absolute 0.1 0.0 - 0.1 x10(3)/[facility] LABORATORY Immature Gran % 0.40 % [facility] Comment: Immature granulocytes(IG's)percentage and absolute count will include metamyelocytes, myelocytes, and promyelocytes. Blood smears from CBCs yielding IG's will be scanned manually for concordance. If this scan disagrees with the automated IG or if promyelocytes are noted, a manual differential will be performed. Immature Gran Absolute 0.02 0.00 - 0.04 x10(3)/[facility] LABORATORY Blood specimen (specimen) 04/25/2018 5:18 AM EDT 04/25/2018 5:43 AM EDT Narrative Resulting Agency Comment Spec In Lab Apple Gutierrez MD HEMATOLOGY ORDERABLE S [facility] [place] [address] * (ABNORMAL) Hemogram (04/25/2018 5:18 AM EDT) White Blood Cell 5.4 4.0 - 9.5 x10(3)/mc L [facility] Red Blood Cell 2.70(L) 4.58 - 5.54 x10(6)/mc L [facility] Hemoglobin 8.2(L) 13.7 - 16.5 gm/dL [facility] Hematocrit 26.1(L) 40.5 - 48.5 % [facility] Mean Cell Volume 96.7(H) 82.9 - 93.1 fL [facility] Mean Cell Hemoglobin 30.4 27.5 - 32.1 pg [facility] Mean Cell Hemoglobin Concentration 31.4(L) 32.0 - 35.7 gm/dL [facility] Platelet 327 145 - 357 x10(3)/mc L [facility] RDW Standard Deviation 55.7(H) 36.0 - 45.0 fL [facility] RDW coefficient of variation 15.8(H) 11.4 - 13.8 % [facility] Mean Platelet Volume 9.1 7.6 - 12.9 [facility] LABORATORY NRBC% auto 0.0 % [facility] NRBC Absolute 0.000 0.000 - 0.000 x10(3)/mc L [facility] Blood specimen (specimen) 04/25/2018 5:18 AM EDT 04/25/2018 5:43 AM EDT Narrative Resulting Agency Comment Spec In Lab Apple Gutierrez MD HEMATOLOGY ORDERABLE S [facility] [place] [address] * (ABNORMAL) Basic Metabolic Panel (non-fasting) (04/25/2018 5:18 AM EDT) Glucose 97 65 - 199 mg/dL [facility] Comment:Diabetes: >=200 mg/d L plus symptoms Blood Urea Nitrogen 39(H) 10 - 20 mg/dL [facility] Creatinine 2.58(H) 0.80 - 1.50 mg/dL [facility] Sodium 138 135 - 145 mmol/L [facility] Potassium 5.2(H) 3.5 - 5.0 mmol/L [facility] Comment: Please note: ??Patients with WBC >100,000 may have falsely elevated Potassium levels. ??For accurate Potassium quantification in these patients send serum separator tube (gold top) for subsequent determinations. ??Contact the Clinical Chemistry Laboratory if there are any questions. Chloride 106 98 - 107 mmol/L [facility] Carbon Dioxide 19(L) 22 - 31 mmol/L [facility] Anion Gap 13 5 - 15 mmol/L [facility] Calcium 8.1(L) 8.5 - 10.5 mg/dL [facility] Est Glomerular Filtration Rate 27(L) >=60 mL/min/1. 73 m?? [facility] Comment: The eGFR was calculated using the CKD-EPI equation. As with all creatinine based estimates of kidney function, eGFR values calculated with the CKD-EPI equation are not accurate in patients with acute kidney failure, extremes of body mass or the acutely ill. http://[employer]/[facility] IDABELnkf eGFR 31(L) >=60 mL/min/1. 73 m?? [facility] Comment: The eGFR was calculated using the CKD-EPI equation. As with all creatinine based estimates of kidney function, eGFR values calculated with the CKD-EPI equation are not accurate in patients with acute kidney failure, extremes of body mass or the acutely ill. http://[employer]/[facility] IDABELnkf Blood specimen (specimen) 04/25/2018 5:18 AM EDT 04/25/2018 5:43 AM EDT Narrative Resulting Agency Comment Spec In Lab Hay Sparks MD CHEMISTRY ORDERABLES [facility] [place] [address] * Differential, Automated (04/24/2018 4:17 AM EDT) Neutrophil % 58.3 % [facility] Neutrophil Absolute 2.74 1.70 - 6.10 x10(3)/[facility] LABORATORY Lymph % 24.8 % [facility] Lymphocytes Abs 1.2 0.9 - 3.2 x10(3)/[facility] LABORATORY Monocyte % 9.3 % [facility] Monocyte Abs 0.4 0.3 - 0.9 x10(3)/[facility] LABORATORY Eos % 5.9 % [facility] Eosinophils Abs 0.3 0.0 - 0.4 x10(3)/[facility] LABORATORY Basophil % 1.1 % [facility] Baso Absolute 0.0 0.0 - 0.1 x10(3)/[facility] LABORATORY Immature Gran % 0.60 % [facility] Comment: Immature granulocytes(IG's)percentage and absolute count will include metamyelocytes, myelocytes, and promyelocytes. Blood smears from CBCs yielding IG's will be scanned manually for concordance. If this scan disagrees with the automated IG or if promyelocytes are noted, a manual differential will be performed. Immature Gran Absolute 0.03 0.00 - 0.04 x10(3)/[facility] LABORATORY Blood specimen (specimen) 04/24/2018 4:17 AM EDT 04/24/2018 4:40 AM EDT Narrative Resulting Agency Comment Spec In Lab Apple Gutierrez MD HEMATOLOGY ORDERABLE S [facility] [place] [address] * (ABNORMAL) Hemogram (04/24/2018 4:17 AM EDT) White Blood Cell 4.7 4.0 - 9.5 x10(3)/mc L [facility] Red Blood Cell 2.61(L) 4.58 - 5.54 x10(6)/mc L [facility] Hemoglobin 7.9(L) 13.7 - 16.5 gm/dL [facility] Hematocrit 24.6(L) 40.5 - 48.5 % [facility] Mean Cell Volume 94.3(H) 82.9 - 93.1 fL [facility] Mean Cell Hemoglobin 30.3 27.5 - 32.1 pg [facility] Mean Cell Hemoglobin Concentration 32.1 32.0 - 35.7 gm/dL [facility] Platelet 283 145 - 357 x10(3)/mc L [facility] RDW Standard Deviation 54.0(H) 36.0 - 45.0 fL [facility] RDW coefficient of variation 15.7(H) 11.4 - 13.8 % [facility] Mean Platelet Volume 8.6 7.6 - 12.9 fL [facility] NRBC% auto 0.0 % [facility] NRBC Absolute 0.000 0.000 - 0.000 x10(3)/mc L [facility] Blood specimen (specimen) 04/24/2018 4:17 AM EDT 04/24/2018 4:40 AM EDT Narrative Resulting Agency Comment Spec In Lab Apple Gutierrez MD HEMATOLOGY ORDERABLE S [facility] [place] [address] * (ABNORMAL) Basic Metabolic Panel (non-fasting) (04/24/2018 4:17 AM EDT) Glucose 93 65 - 199 mg/dL [facility] Comment:Diabetes: >=200 mg/d L plus symptoms Blood Urea Nitrogen 38(H) 10 - 20 mg/dL [facility] Creatinine 2.74(H) 0.80 - 1.50 mg/dL [facility] Sodium 138 135 - 145 mmol/L [facility] Potassium 5.2(H) 3.5 - 5.0 mmol/L [facility] Comment: Please note: ??Patients with WBC >100,000 may have falsely elevated Potassium levels. ??For accurate Potassium quantification in these patients send serum separator tube (gold top) for subsequent determinations. ??Contact the Clinical Chemistry Laboratory if there are any questions. Chloride 108(H) 98 - 107 mmol/L [facility] Carbon Dioxide 20(L) 22 - 31 mmol/L [facility] Anion Gap 10 5 - 15 mmol/L [facility] Calcium 8.0(L) 8.5 - 10.5 mg/dL [facility] Est Glomerular Filtration Rate 25(L) >=60 mL/min/1. 73 m?? [facility] Comment: The eGFR was calculated using the CKD-EPI equation. As with all creatinine based estimates of kidney function, eGFR values calculated with the CKD-EPI equation are not accurate in patients with acute kidney failure, extremes of body mass or the acutely ill. http://[employer]/[facility] IDABELnkf eGFR 29(L) >=60 mL/min/1. 73 m?? [facility] Comment: The eGFR was calculated using the CKD-EPI equation. As with all creatinine based estimates of kidney function, eGFR values calculated with the CKD-EPI equation are not accurate in patients with acute kidney failure, extremes of body mass or the acutely ill. http://[employer]/[facility] IDABELnkf Blood specimen (specimen) 04/24/2018 4:17 AM EDT 04/24/2018 4:40 AM EDT Narrative Resulting Agency Comment Spec In Lab aHy Sparks MD CHEMISTRY ORDERABLES [facility] [place] [address] * Differential, Automated (04/23/2018 4:56 AM EDT) Neutrophil % 61.5 % [facility] Neutrophil Absolute 3.19 1.70 - 6.10 x10(3)/[facility] LABORATORY Lymph % 22.2 % [facility] Lymphocytes Abs 1.2 0.9 - 3.2 x10(3)/[facility] LABORATORY Monocyte % 9.5 % [facility] Monocyte Abs 0.5 0.3 - 0.9 x10(3)/[facility] LABORATORY Eos % 5.6 % [facility] Eosinophils Abs 0.3 0.0 - 0.4 x10(3)/[facility] LABORATORY Basophil % 0.8 % [facility] Baso Absolute 0.0 0.0 - 0.1 x10(3)/[facility] LABORATORY Immature Gran % 0.40 % [facility] Comment: Immature granulocytes(IG's)percentage and absolute count will include metamyelocytes, myelocytes, and promyelocytes. Blood smears from CBCs yielding IG's will be scanned manually for concordance. If this scan disagrees with the automated IG or if promyelocytes are noted, a manual differential will be performed. Immature Gran Absolute 0.02 0.00 - 0.04 x10(3)/[facility] LABORATORY Blood specimen (specimen) 04/23/2018 4:56 AM EDT 04/23/2018 5:25 AM EDT Narrative Resulting Agency Comment Spec In Lab Apple Gutierrez MD HEMATOLOGY ORDERABLE S [facility] [place] [address] * (ABNORMAL) Hemogram (04/23/2018 4:56 AM EDT) White Blood Cell 5.2 4.0 - 9.5 x10(3)/mc L [facility] Red Blood Cell 2.60(L) 4.58 - 5.54 x10(6)/mc L [facility] Hemoglobin 8.0(L) 13.7 - 16.5 gm/dL [facility] Hematocrit 24.3(L) 40.5 - 48.5 % [facility] Mean Cell Volume 93.5(H) 82.9 - 93.1 fL [facility] Mean Cell Hemoglobin 30.8 27.5 - 32.1 pg [facility] Mean Cell Hemoglobin Concentration 32.9 32.0 - 35.7 gm/dL [facility] Platelet 317 145 - 357 x10(3)/mc L [facility] RDW Standard Deviation 54.2(H) 36.0 - 45.0 fL [facility] RDW coefficient of variation 15.9(H) 11.4 - 13.8 % [facility] Mean Platelet Volume 8.5 7.6 - 12.9 fL [facility] NRBC% auto 0.0 % [facility] NRBC Absolute 0.000 0.000 - 0.000 x10(3)/mc L [facility] Blood specimen (specimen) 04/23/2018 4:56 AM EDT 04/23/2018 5:25 AM EDT Narrative Resulting Agency Comment Spec In Lab Apple Gutierrez MD HEMATOLOGY ORDERABLE S Performing Organization Address City/State/[facility] Co de Phone Number [facility] [place] [address] * (ABNORMAL) Basic Metabolic Panel (non-fasting) (04/23/2018 4:56 AM EDT) Glucose 96 65 - 199 mg/dL [facility] Comment:Diabetes: >=200 mg/d L plus symptoms Blood Urea Nitrogen 36(H) 10 - 20 mg/dL [facility] Creatinine 2.49(H) 0.80 - 1.50 mg/dL [facility] Sodium 137 135 - 145 mmol/L [facility] Potassium 4.9 3.5 - 5.0 mmol/L [facility] Comment: Please note: ??Patients with WBC >100,000 may have falsely elevated Potassium levels. ??For accurate Potassium quantification in these patients send serum separator tube (gold top) for subsequent determinations. ??Contact the Clinical Chemistry Laboratory if there are any questions. Chloride 103 98 - 107 mmol/L [facility] Carbon Dioxide 20(L) 22 - 31 mmol/L [facility] Anion Gap 14 5 - 15 mmol/L [facility] Calcium 8.1(L) 8.5 - 10.5 mg/dL [facility] Est Glomerular Filtration Rate 28(L) >=60 mL/min/1. 73 m?? [facility] Comment: The eGFR was calculated using the CKD-EPI equation. As with all creatinine based estimates of kidney function, eGFR values calculated with the CKD-EPI equation are not accurate in patients with acute kidney failure, extremes of body mass or the acutely ill. [email or web address]://[email or web address]nkf eGFR 32(L) >=60 mL/min/1. 73 m?? [facility] Comment: The eGFR was calculated using the CKD-EPI equation. As with all creatinine based estimates of kidney function, eGFR values calculated with the CKD-EPI equation are not accurate in patients with acute kidney failure, extremes of body mass or the acutely ill. [email or web address] IDABELnkf Blood specimen (specimen) 04/23/2018 4:56 AM EDT 04/23/2018 5:25 AM EDT Narrative Resulting Agency Comment Spec In Lab Hay Sparks MD CHEMISTRY ORDERABLES Performing Organization Address City/State/[facility] Co de Phone Number [facility] [place] [address] * Differential, Automated (04/22/2018 5:34 AM EDT) Neutrophil % 67.1 % [facility] Neutrophil Absolute 3.67 1.70 - 6.10 x10(3)/[facility] Lymph % 17.3 % [facility] Lymphocytes Abs 1.0 0.9 - 3.2 x10(3)/[facility] Monocyte % 10.0 % [facility] Monocyte Abs 0.6 0.3 - 0.9 x10(3)/[facility] Eos % 4.7 % [facility] Eosinophils Abs 0.3 0.0 - 0.4 x10(3)/[facility] Basophil % 0.7 % [facility] Baso Absolute 0.0 0.0 - 0.1 x10(3)/[facility] Immature Gran % 0.20 % [facility] Comment: Immature granulocytes(IG's)percentage and absolute count will include metamyelocytes, myelocytes, and promyelocytes. Blood smears from CBCs yielding IG's will be scanned manually for concordance. If this scan disagrees with the automated IG or if promyelocytes are noted, a manual differential will be performed. Immature Gran Absolute 0.01 0.00 - 0.04 x10(3)/[facility] Blood specimen (specimen) 04/22/2018 5:34 AM EDT 04/22/2018 5:51 AM EDT Narrative Resulting Agency Comment Spec In Lab Apple Gutierrez MD HEMATOLOGY ORDERABLE S Performing Organization Address City/State/[facility] Co de Phone Number [facility] [place] [address] * (ABNORMAL) Hemogram (04/22/2018 5:34 AM EDT) White Blood Cell 5.5 4.0 - 9.5 x10(3)/ L [facility] Red Blood Cell 2.62(L) 4.58 - 5.54 x10(6)/ L [facility] Hemoglobin 8.0(L) 13.7 - 16.5 gm/dL [facility] Hematocrit 24.8(L) 40.5 - 48.5 % [facility] Mean Cell Volume 94.7(H) 82.9 - 93.1 fL [facility] Mean Cell Hemoglobin 30.5 27.5 - 32.1 pg [facility] Mean Cell Hemoglobin Concentration 32.3 32.0 - 35.7 gm/dL [facility] Platelet 289 145 - 357 x10(3)/[facility] RDW Standard Deviation 56.7(H) 36.0 - 45.0 fL [facility] RDW coefficient of variation 16.2(H) 11.4 - 13.8 % [facility] Mean Platelet Volume 8.6 7.6 - 12.9 fL [facility] NRBC% auto 0.0 % [facility] NRBC Absolute 0.000 0.000 - 0.000 x10(3)/mc L [facility] Blood specimen (specimen) 04/22/2018 5:34 AM EDT 04/22/2018 5:51 AM EDT Narrative Resulting Agency Comment Spec In Lab Apple Gutierrez MD HEMATOLOGY ORDERABLE S [facility] [place] [address] * (ABNORMAL) Basic Metabolic Panel (non-fasting) (04/22/2018 5:34 AM EDT) Glucose 100 65 - 199 mg/dL [facility] Comment:Diabetes: >=200 mg/d L plus symptoms Blood Urea Nitrogen 38(H) 10 - 20 mg/dL [facility] Creatinine 2.30(H) 0.80 - 1.50 mg/dL [facility] Sodium 138 135 - 145 mmol/L [facility] Potassium 5.3(H) 3.5 - 5.0 mmol/L [facility] Comment: Please note: ??Patients with WBC >100,000 may have falsely elevated Potassium levels. ??For accurate Potassium quantification in these patients send serum separator tube (gold top) for subsequent determinations. ??Contact the Clinical Chemistry Laboratory if there are any questions. Chloride 106 98 - 107 mmol/L [facility] Carbon Dioxide 19(L) 22 - 31 mmol/L [facility] Anion Gap 13 5 - 15 mmol/L [facility] Calcium 8.0(L) 8.5 - 10.5 mg/dL [facility] Est Glomerular Filtration Rate 31(L) >=60 mL/min/1. 73 m?? [facility] Comment: The eGFR was calculated using the CKD-EPI equation. As with all creatinine based estimates of kidney function, eGFR values calculated with the CKD-EPI equation are not accurate in patients with acute kidney failure, extremes of body mass or the acutely ill. http://[employer]/[facility] ID[facility]nkf eGFR 35(L) >=60 mL/min/1. 73 m?? [facility] Comment: The eGFR was calculated using the CKD-EPI equation. As with all creatinine based estimates of kidney function, eGFR values calculated with the CKD-EPI equation are not accurate in patients with acute kidney failure, extremes of body mass or the acutely ill. [email or web address]nkf Blood specimen (specimen) 04/22/2018 5:34 AM EDT 04/22/2018 5:51 AM EDT Narrative Resulting Agency Comment Spec In Lab Hay Sparks MD CHEMISTRY ORDERABLES [facility] [place] [address] * Blood culture (04/21/2018 6:05 AM EDT) Blood Culture No growth at 5 days. [facility] Blood specimen (specimen) STRUCTURE OF RIGHT HAND / Unknown 04/21/2018 6:05 AM EDT 04/21/2018 8:01 AM EDT Narrative Resulting Agency Comment Spec In Lab Chase Olvera MD MICROBIOLOGY - BL OOD ORDERABLES [facility] [place] [address] * Blood culture (04/21/2018 5:50 AM EDT) Blood Culture No growth at 5 days. [facility] Blood specimen (specimen) ANTECUBITAL REGION STRUCTURE / Unknown 04/21/2018 5:50 AM EDT 04/21/2018 7:59 AM EDT Narrative Resulting Agency Comment Spec In Lab Chase Olvera MD MICROBIOLOGY - BL OOD ORDERABLES [facility] [place] [address] * Differential, Automated (04/21/2018 5:50 AM EDT) Neutrophil % 66.9 % [facility] Neutrophil Absolute 3.88 1.70 - 6.10 x10(3)/[facility] Lymph % 16.8 % [facility] Lymphocytes Abs 1.0 0.9 - 3.2 x10(3)/[facility] Monocyte % 8.8 % [facility] Monocyte Abs 0.5 0.3 - 0.9 x10(3)/[facility] Eos % 5.9 % [facility] Eosinophils Abs 0.3 0.0 - 0.4 x10(3)/[facility] Basophil % 0.9 % [facility] Baso Absolute 0.0 0.0 - 0.1 x10(3)/[facility] Immature Gran % 0.70 % [facility] Comment: Immature granulocytes(IG's)percentage and absolute count will include metamyelocytes, myelocytes, and promyelocytes. Blood smears from CBCs yielding IG's will be scanned manually for concordance. If this scan disagrees with the automated IG or if promyelocytes are noted, a manual differential will be performed. Immature Gran Absolute 0.04 0.00 - 0.04 x10(3)/[facility] Blood specimen (specimen) 04/21/2018 5:50 AM EDT 04/21/2018 6:29 AM EDT Narrative Resulting Agency Comment Spec In Lab Apple Gutierrez MD HEMATOLOGY ORDERABLE S [facility] [place] [address] * (ABNORMAL) Hemogram (04/21/2018 5:50 AM EDT) [facility] White Blood Cell 5.8 4.0 - 9.5 x10(3)/mc L [facility] Red Blood Cell 2.55(L) 4.58 - 5.54 x10(6)/[facility] Hemoglobin 7.7(L) 13.7 - 16.5 gm/dL [facility] Hematocrit 24.2(L) 40.5 - 48.5 % [facility] Mean Cell Volume 94.9(H) 82.9 - 93.1 fL [facility] Mean Cell Hemoglobin 30.2 27.5 - 32.1 pg [facility] Mean Cell Hemoglobin Concentration 31.8(L) 32.0 - 35.7 gm/dL [facility] Platelet 316 145 - 357 x10(3)/[facility] RDW Standard Deviation 56.2(H) 36.0 - 45.0 [facility] RDW coefficient of variation 16.0(H) 11.4 - 13.8 % [facility] Mean Platelet Volume 8.2 7.6 - 12.9 [facility] NRBC% auto 0.0 % [facility] NRBC Absolute 0.000 0.000 - 0.000 x10(3)/[facility] Blood specimen (specimen) 04/21/2018 5:50 AM EDT 04/21/2018 6:29 AM EDT Narrative Resulting Agency Comment Spec In Lab Apple Gutierrez MD HEMATOLOGY ORDERABLE S [facility] [place] [address] * (ABNORMAL) Basic Metabolic Panel (non-fasting) (04/21/2018 5:50 AM EDT) Glucose 97 65 - 199 mg/dL [facility] Comment:Diabetes: >=200 mg/d L plus symptoms Blood Urea Nitrogen 34(H) 10 - 20 mg/dL [facility] Creatinine 2.30(H) 0.80 - 1.50 mg/dL [facility] Sodium 138 135 - 145 mmol/L [facility] Potassium 4.8 3.5 - 5.0 mmol/L [facility] Comment: Please note: ??Patients with WBC >100,000 may have falsely elevated Potassium levels. ??For accurate Potassium quantification in these patients send serum separator tube (gold top) for subsequent determinations. ??Contact the Clinical Chemistry Laboratory if there are any questions. Chloride 105 98 - 107 mmol/L [facility] Carbon Dioxide 21(L) 22 - 31 mmol/L [facility] Anion Gap 12 5 - 15 mmol/L [facility] Calcium 8.1(L) 8.5 - 10.5 mg/dL [facility] Est Glomerular Filtration Rate 31(L) >=60 mL/min/1. 73 m?? [facility] Comment: The eGFR was calculated using the CKD-EPI equation. As with all creatinine based estimates of kidney function, eGFR values calculated with the CKD-EPI equation are not accurate in patients with acute kidney failure, extremes of body mass or the acutely ill. http://[employer]/[facility]nkf eGFR 35(L) >=60 mL/min/1. 73 m?? [facility] Comment: The eGFR was calculated using the CKD-EPI equation. As with all creatinine based estimates of kidney function, eGFR values calculated with the CKD-EPI equation are not accurate in patients with acute kidney failure, extremes of body mass or the acutely ill. [email or web address]nkf Blood specimen (specimen) 04/21/2018 5:50 AM EDT 04/21/2018 6:29 AM EDT Narrative Resulting Agency Comment Spec In Lab Hay Sparks MD CHEMISTRY ORDERABLES Performing Organization Address City/[facility]/ZIP Co de Phone Number [facility] [place] [address] * Differential, Automated (04/20/2018 5:48 AM EDT) Neutrophil % 74.0 % [facility] Neutrophil Absolute 5.39 1.70 - 6.10 x10(3)/[facility] Lymph % 12.8 % [facility] Lymphocytes Abs 0.9 0.9 - 3.2 x10(3)/[facility] Monocyte % 8.2 % [facility] Monocyte Abs 0.6 0.3 - 0.9 x10(3)/[facility] Eos % 4.0 % [facility] Eosinophils Abs 0.3 0.0 - 0.4 x10(3)/[facility] Basophil % 0.5 % [facility] Baso Absolute 0.0 0.0 - 0.1 x10(3)/[facility] Immature Gran % 0.50 % [facility] Comment: Immature granulocytes(IG's)percentage and absolute count will include metamyelocytes, myelocytes, and promyelocytes. Blood smears from CBCs yielding IG's will be scanned manually for concordance. If this scan disagrees with the automated IG or if promyelocytes are noted, a manual differential will be performed. Immature Gran Absolute 0.04 0.00 - 0.04 x10(3)/[facility] Blood specimen (specimen) 04/20/2018 5:48 AM EDT 04/20/2018 6:06 AM EDT Narrative Resulting Agency Comment Spec In Lab Apple Gutierrez MD HEMATOLOGY ORDERABLE S Performing Organization Address City/[facility]/ZIP Co de Phone Number [facility] [place] [address] * (ABNORMAL) Hemogram (04/20/2018 5:48 AM EDT) White Blood Cell 7.3 4.0 - 9.5 x10(3)/[facility] Red Blood Cell 2.53(L) 4.58 - 5.54 x10(6)/mc L [facility] Hemoglobin 7.8(L) 13.7 - 16.5 gm/dL [facility] Hematocrit 23.7(L) 40.5 - 48.5 % [facility] Mean Cell Volume 93.7(H) 82.9 - 93.1 fL [facility] Mean Cell Hemoglobin 30.8 27.5 - 32.1 pg [facility] Mean Cell Hemoglobin Concentration 32.9 32.0 - 35.7 gm/dL [facility] Platelet 302 145 - 357 x10(3)/[facility] RDW Standard Deviation 54.4(H) 36.0 - 45.0 [facility] RDW coefficient of variation 15.9(H) 11.4 - 13.8 % [facility] Mean Platelet Volume 8.5 7.6 - 12.9 [facility] NRBC% auto 0.0 % [facility] NRBC Absolute 0.000 0.000 - 0.000 x10(3)/[facility] Blood specimen (specimen) 04/20/2018 5:48 AM EDT 04/20/2018 6:06 AM EDT Narrative Resulting Agency Comment Spec In Lab Apple Gutierrez MD HEMATOLOGY ORDERABLE S [facility] [place] [address] * APTT (04/20/2018 5:48 AM EDT) Pathologist [facility] Partial Thromboplastin Time 27 25 - 37 sec [facility] MD HEMATOLOGY ORDERA BLES Performing Organization Address [facility] de Phone Number [facility] [place] [address] * Prothrombin Time (04/20/2018 5:48 AM EDT) Prothrombin Time 11.6 9.4 - 12.5 sec [facility] International Normalization Ratio 1.0 [facility] Comment: An [...] MD HEMATOLOGY ORDERA BLES Performing Organization Address [facility] de Phone Number [facility] [place] [address] * (ABNORMAL) Basic Metabolic Panel (non-fasting) (04/20/2018 5:48 AM EDT) Glucose 103 65 - 199 mg/dL [facility] Comment:Diabetes: >=200 mg/d L plus symptoms Blood Urea Nitrogen 33(H) 10 - 20 mg/dL [facility] Creatinine 2.38(H) 0.80 - 1.50 mg/dL [facility] Sodium 138 135 - 145 mmol/L [facility] Potassium 4.7 3.5 - 5.0 mmol/L [facility] Comment: Please note: ??Patients with WBC >100,000 may have falsely elevated Potassium levels. ??For accurate Potassium quantification in these patients send serum separator tube (gold top) for subsequent determinations. ??Contact the Clinical Chemistry Laboratory if there are any questions. Chloride 104 98 - 107 mmol/L [facility] Carbon Dioxide 21(L) 22 - 31 mmol/L [facility] Anion Gap 13 5 - 15 mmol/L [facility] Calcium 8.0(L) 8.5 - 10.5 mg/dL [facility] Est Glomerular Filtration Rate 29(L) >=60 mL/min/1. 73 m?? [facility] Comment: The eGFR was calculated using the CKD-EPI equation. As with all creatinine based estimates of kidney function, eGFR values calculated with the CKD-EPI equation are not accurate in patients with acute kidney failure, extremes of body mass or the acutely ill. http://[employer]/[facility]nkf eGFR 34(L) >=60 mL/min/1. 73 m?? [facility] Comment: The eGFR was calculated using the CKD-EPI equation. As with all creatinine based estimates of kidney function, eGFR values calculated with the CKD-EPI equation are not accurate in patients with acute kidney failure, extremes of body mass or the acutely ill. [email or web address] Blood specimen (specimen) 04/20/2018 5:48 AM EDT 04/20/2018 6:06 AM EDT Narrative Resulting Agency Comment Spec In Lab Hay Sparks MD CHEMISTRY ORDERABLES [facility] [place] [address] * Anaerobic Culture (04/19/2018 9:25 AM EDT) Anaerobic Culture No anaerobic organisms isolated [facility] Skin (tissue) specimen (specimen) 04/19/2018 9:25 AM EDT 04/19/2018 9:37 AM EDT Comment:LEFT ARM SNUFFBOX PS EUDOANEURYSM FOR AEROBIC, ANAEROBIC, GRAM STAIN Narrative Resulting Agency Comment Spec In Lab Odalis Elias MD MICROBIOLOGY - GENERAL ORDERABLES Performing Organization Address City/[facility]/ZIP Co de Phone Number [facility] [place] [address] * (ABNORMAL) Tissue culture (04/19/2018 9:25 AM EDT) Pathologist [facility] Tissue Culture Rare Corynebacterium species : possible contaminant(A) [facility] Gram Stain Many Neutrophils seen Rare Gram Negative Rods seen (A) [facility] Organism Gram Negative Rods(A) [facility] Skin (tissue) specimen (specimen) 04/19/2018 9:25 AM EDT 04/19/2018 9:37 AM EDT Comment:LEFT ARM SNUFFBOX PS EUDOANEURYSM FOR AEROBIC, ANAEROBIC, GRAM STAIN Narrative Resulting Agency Comment Spec In Lab Odalis Elias MD MICROBIOLOGY - GENERAL ORDERABLES Performing Organization Address City/[facility]/ZIP Co de Phone Number [facility] [place] [address] * Differential, Automated (04/19/2018 6:25 AM EDT) Neutrophil % 68.5 % [facility] Neutrophil Absolute 3.75 1.70 - 6.10 x10(3)/[facility] Lymph % 17.3 % [facility] Lymphocytes Abs 1.0 0.9 - 3.2 x10(3)/[facility] Monocyte % 9.3 % [facility] Monocyte Abs 0.5 0.3 - 0.9 x10(3)/[facility] Eos % 4.0 % [facility] Eosinophils Abs 0.2 0.0 - 0.4 x10(3)/[facility] Basophil % 0.7 % [facility] Baso Absolute 0.0 0.0 - 0.1 x10(3)/[facility] Immature Gran % 0.20 % [facility] Comment: Immature granulocytes(IG's)percentage and absolute count will include metamyelocytes, myelocytes, and promyelocytes. Blood smears from CBCs yielding IG's will be scanned manually for concordance. If this scan disagrees with the automated IG or if promyelocytes are noted, a manual differential will be performed. Immature Gran Absolute 0.01 0.00 - 0.04 x10(3)/[facility] Blood specimen (specimen) 04/19/2018 6:25 AM EDT 04/19/2018 6:32 AM EDT Narrative Resulting Agency Comment Spec In Lab Apple Gutierrez MD HEMATOLOGY ORDERABLE S [facility] [place] [address] * (ABNORMAL) Hemogram (04/19/2018 6:25 AM EDT) White Blood Cell 5.5 4.0 - 9.5 x10(3)/mc L [facility] Red Blood Cell 2.52(L) 4.58 - 5.54 x10(6)/mc L [facility] Hemoglobin 7.7(L) 13.7 - 16.5 gm/dL [facility] Hematocrit 23.3(L) 40.5 - 48.5 % [facility] Mean Cell Volume 92.5 82.9 - 93.1 fL [facility] Mean Cell Hemoglobin 30.6 27.5 - 32.1 pg [facility] Mean Cell Hemoglobin Concentration 33.0 32.0 - 35.7 gm/dL [facility] Platelet 274 145 - 357 x10(3)/mc L [facility] RDW Standard Deviation 53.1(H) 36.0 - 45.0 fL [facility] RDW coefficient of variation 15.6(H) 11.4 - 13.8 % [facility] Mean Platelet Volume 8.3 7.6 - 12.9 fL [facility] NRBC% auto 0.0 % [facility] NRBC Absolute 0.000 0.000 - 0.000 x10(3)/mc L [facility] [facility] Blood specimen (specimen) 04/19/2018 6:25 AM EDT 04/19/2018 6:32 AM EDT Narrative Resulting Agency Comment Spec In Lab Apple Gutierrez MD HEMATOLOGY ORDERABLE S Performing Organization Address [facility] Co de Phone Number [facility] [place] [address] * APTT (04/19/2018 6:25 AM EDT) Partial Thromboplastin Time 27 25 - 37 sec [facility] MD HEMATOLOGY ORDERA BLES Performing Organization Address [facility] Co de Phone Number [facility] [place] [address] * Prothrombin Time (04/19/2018 6:25 AM EDT) Prothrombin Time 11.5 9.4 - 12.5 sec [facility] International Normalization Ratio 1.0 [facility] Comment: An [...] Lab Chase Olvera MD HEMATOLOGY ORDERA BLES [facility] [place] [address] * (ABNORMAL) Basic Metabolic Panel (non-fasting) (04/19/2018 6:25 AM EDT) Glucose 100 65 - 199 mg/dL [facility] Comment:Diabetes: >=200 mg/d L plus symptoms Blood Urea Nitrogen 35(H) 10 - 20 mg/dL [facility] Creatinine 2.12(H) 0.80 - 1.50 mg/dL [facility] Sodium 137 135 - 145 mmol/L [facility] Potassium 4.7 3.5 - 5.0 mmol/L [facility] Comment: Please note: ??Patients with WBC >100,000 may have falsely elevated Potassium levels. ??For accurate Potassium quantification in these patients send serum separator tube (gold top) for subsequent determinations. ??Contact the Clinical Chemistry Laboratory if there are any questions. Chloride 104 98 - 107 mmol/L [facility] Carbon Dioxide 21(L) 22 - 31 mmol/L [facility] Anion Gap 12 5 - 15 mmol/L [facility] Calcium 8.0(L) 8.5 - 10.5 mg/dL [facility] Est Glomerular Filtration Rate 34(L) >=60 mL/min/1. 73 m?? [facility] Comment: The eGFR was calculated using the CKD-EPI equation. As with all creatinine based estimates of kidney function, eGFR values calculated with the CKD-EPI equation are not accurate in patients with acute kidney failure, extremes of body mass or the acutely ill. [email or web address] eGFR 39(L) >=60 mL/min/1. 73 m?? [facility] Comment: The eGFR was calculated using the CKD-EPI equation. As with all creatinine based estimates of kidney function, eGFR values calculated with the CKD-EPI equation are not accurate in patients with acute kidney failure, extremes of body mass or the acutely ill. [email or web address] Blood specimen (specimen) 04/19/2018 6:25 AM EDT 04/19/2018 6:32 AM EDT Narrative Resulting Agency Comment Spec In Lab Hay Sparks MD CHEMISTRY ORDERABLES Performing Organization Address [facility] Co de Phone Number [facility] [place] [address] * Tacrolimus level (04/19/2018 6:25 AM EDT) Tacrolimus 2.8 ng/mL [facility] Comment: Trough therapeutic: ??5-15 ng/mL Performed by ultra-performance liquid chromatography tandem mass spectrometry (UPLCMS/MS). This test was developed and its performance characteristics determined by [facility]. It has not been cleared [...] MD CHEMISTRY ORDERAB LES Performing Organization Address [facility] Co de Phone Number [facility] [place] [address] * AVF/Established Access Evaluation (04/18/2018 1:29 PM EDT) VB Text Report Department: Vascular Surgery Lab Patient: [id number] (ARNOLCHRISTY COLLADO) CPT: 27665 ICD10: N18.6;R57.8 Referring Physician: CHASE OLVERA ?? [...] LABORATORY Neutrophil Absolute 4.29 1.70 - 6.10 x10(3)/[facility] Lymph % 19.6 % [facility] Lymphocytes Abs 1.2 0.9 - 3.2 x10(3)/[facility] Monocyte % 8.2 % [facility] Monocyte Abs 0.5 0.3 - 0.9 x10(3)/[facility] Eos % 3.9 % [facility] Eosinophils Abs 0.2 0.0 - 0.4 x10(3)/[facility] Basophil % 0.5 % [facility] Baso Absolute 0.0 0.0 - 0.1 x10(3)/[facility] Immature Gran % 0.50 % [facility] Comment: Immature granulocytes(IG's)percentage and absolute count will include metamyelocytes, myelocytes, and promyelocytes. Blood smears from CBCs yielding IG's will be scanned manually for concordance. If this scan disagrees with the automated IG or if promyelocytes are noted, a manual differential will be performed. Immature Gran Absolute 0.03 0.00 - 0.04 x10(3)/[facility] Blood specimen (specimen) 04/18/2018 5:26 AM EDT 04/18/2018 5:39 AM EDT Narrative Resulting Agency Comment Spec In Lab Apple Gutierrez MD HEMATOLOGY ORDERABLE S [facility] [place] [address] * (ABNORMAL) Hemogram (04/18/2018 5:26 AM EDT) White Blood Cell 6.4 4.0 - 9.5 x10(3)/mc L [facility] Red Blood Cell 2.65(L) 4.58 - 5.54 x10(6)/mc L [facility] Hemoglobin 8.0(L) 13.7 - 16.5 gm/dL [facility] Hematocrit 24.6(L) 40.5 - 48.5 % [facility] Mean Cell Volume 92.8 82.9 - 93.1 fL [facility] Mean Cell Hemoglobin 30.2 27.5 - 32.1 pg [facility] Mean Cell Hemoglobin Concentration 32.5 32.0 - 35.7 gm/dL [facility] Platelet 305 145 - 357 x10(3)/mc L [facility] RDW Standard Deviation 53.2(H) 36.0 - 45.0 fL [facility] RDW coefficient of variation 15.7(H) 11.4 - 13.8 % [facility] Mean Platelet Volume 8.3 7.6 - 12.9 fL [facility] NRBC% auto 0.0 % [facility] NRBC Absolute 0.000 0.000 - 0.000 x10(3)/mc L [facility] Blood specimen (specimen) 04/18/2018 5:26 AM EDT 04/18/2018 5:39 AM EDT Narrative Resulting Agency Comment Spec In Lab Apple Gutierrez MD HEMATOLOGY ORDERABLE S Performing Organization Address [facility]/ZIP Co de Phone Number [facility] [place] [address] * APTT (04/18/2018 5:26 AM EDT) Partial Thromboplastin Time 27 25 - 37 sec [facility] MD HEMATOLOGY ORDERA BLES Performing Organization Address City/[facility]/ZIP Co de Phone Number [facility] [place] [address] * Prothrombin Time (04/18/2018 5:26 AM EDT) Prothrombin Time 11.2 9.4 - 12.5 sec [facility] International Normalization Ratio 1.0 [facility] Comment: An [...] Lab Chase Olvera MD HEMATOLOGY ORDERA BLES [facility] [place] [address] * (ABNORMAL) Basic Metabolic Panel (non-fasting) (04/18/2018 5:26 AM EDT) Glucose 103 65 - 199 mg/dL [facility] Comment:Diabetes: >=200 mg/d L plus symptoms Blood Urea Nitrogen 36(H) 10 - 20 mg/dL [facility] Creatinine 2.30(H) 0.80 - 1.50 mg/dL [facility] Sodium 135 135 - 145 mmol/L [facility] Potassium 4.3 3.5 - 5.0 mmol/L [facility] Comment: Please note: ??Patients with WBC >100,000 may have falsely elevated Potassium levels. ??For accurate Potassium quantification in these patients send serum separator tube (gold top) for subsequent determinations. ??Contact the Clinical Chemistry Laboratory if there are any questions. Chloride 104 98 - 107 mmol/L [facility] Carbon Dioxide 20(L) 22 - 31 mmol/L [facility] Anion Gap 11 5 - 15 mmol/L [facility] Calcium 8.3(L) 8.5 - 10.5 mg/dL [facility] Est Glomerular Filtration Rate 31(L) >=60 mL/min/1. 73 m?? [facility] Comment: The eGFR was calculated using the CKD-EPI equation. As with all creatinine based estimates of kidney function, eGFR values calculated with the CKD-EPI equation are not accurate in patients with acute kidney failure, extremes of body mass or the acutely ill. [email or web address] eGFR 35(L) >=60 mL/min/1. 73 m?? [facility] Comment: The eGFR was calculated using the CKD-EPI equation. As with all creatinine based estimates of kidney function, eGFR values calculated with the CKD-EPI equation are not accurate in patients with acute kidney failure, extremes of body mass or the acutely ill. [email or web address] Blood specimen (specimen) 04/18/2018 5:26 AM EDT 04/18/2018 5:39 AM EDT Narrative Resulting Agency Comment Spec In Lab Hay Sparks MD CHEMISTRY ORDERABLES Performing Organization Address [facility]/ZIP Co de Phone Number [facility] [place] [address] * ABORH Recheck Status (04/17/2018 9:07 AM EDT) ABORH Type Recheck Completed [facility] Blood specimen (specimen) 04/17/2018 9:07 AM EDT 04/17/2018 9:22 AM EDT Narrative Resulting Agency Comment Spec In Lab Tim Ogden MD BLOOD BANK LAB ORDE ABDIAS Performing Organization Address City/[facility]/ZIP Co de Phone Number [facility] [place] [address] * Antibody screen (04/17/2018 9:07 AM EDT) Ab Screen Interp Negative [facility] Expires at [id number] on: 04/20/2018 [facility] Blood specimen (specimen) 04/17/2018 9:07 AM EDT 04/17/2018 9:22 AM EDT Narrative Resulting Agency Comment Spec In Lab Tim Ogden MD BLOOD BANK LAB ORDOctaviano CALERO [facility] [place] [address] * ABO/Rh Typing (04/17/2018 9:07 AM EDT) ABORH Type A Pos [facility] Blood specimen (specimen) 04/17/2018 9:07 AM EDT 04/17/2018 9:22 AM EDT Narrative Resulting Agency Comment Spec In Lab Tim Ogden MD BLOOD BANK LAB RYAN CALERO Performing Organization Address City/[facility]/ZIP Co de Phone Number [facility] [place] [address] * Differential, Automated (04/17/2018 4:43 AM EDT) Neutrophil % 64.8 % [facility] Neutrophil Absolute 3.62 1.70 - 6.10 x10(3)/[facility] Lymph % 18.6 % [facility] Lymphocytes Abs 1.0 0.9 - 3.2 x10(3)/[facility] Monocyte % 10.0 % [facility] Monocyte Abs 0.6 0.3 - 0.9 x10(3)/[facility] Eos % 5.0 % [facility] Eosinophils Abs 0.3 0.0 - 0.4 x10(3)/[facility] Basophil % 0.9 % [facility] Baso Absolute 0.0 0.0 - 0.1 x10(3)/[facility] Immature Gran % 0.70 % [facility] Comment: Immature granulocytes(IG's)percentage and absolute count will include metamyelocytes, myelocytes, and promyelocytes. Blood smears from CBCs yielding IG's will be scanned manually for concordance. If this scan disagrees with the automated IG or if promyelocytes are noted, a manual differential will be performed. Immature Gran Absolute 0.04 0.00 - 0.04 x10(3)/[facility] Blood specimen (specimen) 04/17/2018 4:43 AM EDT 04/17/2018 5:09 AM EDT Narrative Resulting Agency Comment Spec In Lab Apple Gutierrez MD HEMATOLOGY ORDERABLE S [facility] [place] [address] * (ABNORMAL) Hemogram (04/17/2018 4:43 AM EDT) White Blood Cell 5.6 4.0 - 9.5 x10(3)/[facility] Red Blood Cell 2.47(L) 4.58 - 5.54 x10(6)/[facility] Hemoglobin 7.5(L) 13.7 - 16.5 gm/dL [facility] Hematocrit 22.9(L) 40.5 - 48.5 % [facility] Mean Cell Volume 92.7 82.9 - 93.1 [facility] Mean Cell Hemoglobin 30.4 27.5 - 32.1 pg [facility] Mean Cell Hemoglobin Concentration 32.8 32.0 - 35.7 gm/dL [facility] Platelet 282 145 - 357 x10(3)/[facility] RDW Standard Deviation 53.0(H) 36.0 - 45.0 [facility] RDW coefficient of variation 15.6(H) 11.4 - 13.8 % [facility] Mean Platelet Volume 8.3 7.6 - 12.9 [facility] NRBC% auto 0.0 % [facility] NRBC Absolute 0.000 0.000 - 0.000 x10(3)/[facility] Blood specimen (specimen) 04/17/2018 4:43 AM EDT 04/17/2018 5:09 AM EDT Narrative Resulting Agency Comment Spec In Lab Apple Gutierrez MD HEMATOLOGY ORDERABLE S Performing Organization Address [facility] Co de Phone Number [facility] [place] [address] * APTT (04/17/2018 4:43 AM EDT) Partial Thromboplastin Time 27 25 - 37 sec [facility] MD HEMATOLOGY ORDERA BLES Performing Organization Address [facility] de Phone Number [facility] [place] [address] * Prothrombin Time (04/17/2018 4:43 AM EDT) Prothrombin Time 11.7 9.4 - 12.5 sec [facility] International Normalization Ratio 1.0 [facility] Comment: An [...] MD HEMATOLOGY ORDERA BLES Performing Organization Address [facility] Co de Phone Number [facility] [place] [address] * (ABNORMAL) Basic Metabolic Panel (non-fasting) (04/17/2018 4:43 AM EDT) Glucose 100 65 - 199 mg/dL [facility] Comment:Diabetes: >=200 mg/d L plus symptoms Blood Urea Nitrogen 32(H) 10 - 20 mg/dL [facility] Creatinine 2.27(H) 0.80 - 1.50 mg/dL [facility] Sodium 135 135 - 145 mmol/L [facility] Potassium 4.1 3.5 - 5.0 mmol/L [facility] Comment: Please note: ??Patients with WBC >100,000 may have falsely elevated Potassium levels. ??For accurate Potassium quantification in these patients send serum separator tube (gold top) for subsequent determinations. ??Contact the Clinical Chemistry Laboratory if there are any questions. Chloride 104 98 - 107 mmol/L [facility] Carbon Dioxide 19(L) 22 - 31 mmol/L [facility] Anion Gap 12 5 - 15 mmol/L [facility] Calcium 7.7(L) 8.5 - 10.5 mg/dL [facility] Est Glomerular Filtration Rate 31(L) >=60 mL/min/1. 73 m?? [facility] Comment: The eGFR was calculated using the CKD-EPI equation. As with all creatinine based estimates of kidney function, eGFR values calculated with the CKD-EPI equation are not accurate in patients with acute kidney failure, extremes of body mass or the acutely ill. [email or web address] IDABELnkf eGFR 36(L) >=60 mL/min/1. 73 m?? [facility] Comment: The eGFR was calculated using the CKD-EPI equation. As with all creatinine based estimates of kidney function, eGFR values calculated with the CKD-EPI equation are not accurate in patients with acute kidney failure, extremes of body mass or the acutely ill. [email or web address] IDABELnkf Blood specimen (specimen) 04/17/2018 4:43 AM EDT 04/17/2018 5:09 AM EDT Narrative Resulting Agency Comment Spec In Lab Hay Sparks MD CHEMISTRY ORDERABLES Performing Organization Address City/[facility]/[place] [address] * (ABNORMAL) Differential, Automated (04/16/2018 4:17 AM EDT) Neutrophil % 59.4 % [facility] Neutrophil Absolute 3.07 1.70 - 6.10 x10(3)/mc L [facility] Lymph % 24.4 % [facility] Lymphocytes Abs 1.3 0.9 - 3.2 x10(3)/ L [facility] Monocyte % 10.3 % [facility] Monocyte Abs 0.5 0.3 - 0.9 x10(3)/[facility] Eos % 4.5 % [facility] Eosinophils Abs 0.2 0.0 - 0.4 x10(3)/[facility] Basophil % 0.4 % [facility] Baso Absolute 0.0 0.0 - 0.1 x10(3)/[facility] Immature Gran % 1.00 % [facility] Comment: Immature granulocytes(IG's)percentage and absolute count will include metamyelocytes, myelocytes, and promyelocytes. Blood smears from CBCs yielding IG's will be scanned manually for concordance. If this scan disagrees with the automated IG or if promyelocytes are noted, a manual differential will be performed. Immature Gran Absolute 0.05(H) 0.00 - 0.04 x10(3)/ L [facility] Blood specimen (specimen) 04/16/2018 4:17 AM EDT 04/16/2018 4:52 AM EDT Narrative Resulting Agency Comment Spec In Lab Apple Gutierrez MD HEMATOLOGY ORDERABLE S Performing Organization Address City/[facility]/ZIP Co de Phone Number [facility] [place] [address] * (ABNORMAL) Hemogram (04/16/2018 4:17 AM EDT) White Blood Cell 5.2 4.0 - 9.5 x10(3)/[facility] Red Blood Cell 2.62(L) 4.58 - 5.54 x10(6)/[facility] Hemoglobin 7.9(L) 13.7 - 16.5 gm/dL [facility] Hematocrit 24.9(L) 40.5 - 48.5 % [facility] Mean Cell Volume 95.0(H) 82.9 - 93.1 [facility] Mean Cell Hemoglobin 30.2 27.5 - 32.1 pg [facility] Mean Cell Hemoglobin Concentration 31.7(L) 32.0 - 35.7 gm/dL [facility] Platelet 288 145 - 357 x10(3)/[facility] RDW Standard Deviation 52.6(H) 36.0 - 45.0 [facility] RDW coefficient of variation 15.4(H) 11.4 - 13.8 % [facility] Mean Platelet Volume 8.5 7.6 - 12.9 [facility] NRBC% auto 0.0 % [facility] NRBC Absolute 0.000 0.000 - 0.000 x10(3)/[facility] Blood specimen (specimen) 04/16/2018 4:17 AM EDT 04/16/2018 4:52 AM EDT Narrative Resulting Agency Comment Spec In Lab Apple Gutierrez MD HEMATOLOGY ORDERABLE S [facility] [place] [address] * APTT (04/16/2018 4:17 AM EDT) Partial Thromboplastin Time 27 25 - 37 sec [facility] MD HEMATOLOGY ORDERA BLES Performing Organization Address [facility] de Phone Number [facility] [place] [address] * Prothrombin Time (04/16/2018 4:17 AM EDT) Prothrombin Time 11.5 9.4 - 12.5 sec [facility] International Normalization Ratio 1.0 [facility] Comment: An [...] MD HEMATOLOGY ORDERA BLES Performing Organization Address [facility] Co de Phone Number [facility] [place] [address] * (ABNORMAL) Basic Metabolic Panel (non-fasting) (04/16/2018 4:17 AM EDT) Glucose 108 65 - 199 mg/dL [facility] Comment:Diabetes: >=200 mg/d L plus symptoms Blood Urea Nitrogen 31(H) 10 - 20 mg/dL [facility] Creatinine 2.27(H) 0.80 - 1.50 mg/dL [facility] Sodium 135 135 - 145 mmol/L [facility] Potassium 4.0 3.5 - 5.0 mmol/L [facility] Comment: Please note: ??Patients with WBC >100,000 may have falsely elevated Potassium levels. ??For accurate Potassium quantification in these patients send serum separator tube (gold top) for subsequent determinations. ??Contact the Clinical Chemistry Laboratory if there are any questions. Chloride 103 98 - 107 mmol/L [facility] Carbon Dioxide 20(L) 22 - 31 mmol/L [facility] Anion Gap 12 5 - 15 mmol/L [facility] Calcium 7.7(L) 8.5 - 10.5 mg/dL [facility] Est Glomerular Filtration Rate 31(L) >=60 mL/min/1. 73 m?? [facility] Comment: The eGFR was calculated using the CKD-EPI equation. As with all creatinine based estimates of kidney function, eGFR values calculated with the CKD-EPI equation are not accurate in patients with acute kidney failure, extremes of body mass or the acutely ill. [email or web address]://CityCiv/[facility] IDABELnkf eGFR 36(L) >=60 mL/min/1. 73 m?? [facility] Comment: The eGFR was calculated using the CKD-EPI equation. As with all creatinine based estimates of kidney function, eGFR values calculated with the CKD-EPI equation are not accurate in patients with acute kidney failure, extremes of body mass or the acutely ill. [email or web address] IDABELnkf Blood specimen (specimen) 04/16/2018 4:17 AM EDT 04/16/2018 4:52 AM EDT Narrative Resulting Agency Comment Spec In Lab Hay Sparks MD CHEMISTRY ORDERABLES [facility] [place] [address] * APTT (04/15/2018 4:57 AM EDT) Partial Thromboplastin Time 27 25 - 37 sec [facility] MD HEMATOLOGY ORDERA BLES Performing Organization Address [facility] Co de Phone Number [facility] [place] [address] * (ABNORMAL) Prothrombin Time (04/15/2018 4:57 AM EDT) Prothrombin Time 12.9(H) 9.4 - 12.5 sec [facility] International Normalization Ratio 1.2 [facility] Comment: An [...] MD HEMATOLOGY ORDERA BLES Performing Organization Address City/[facility] Co de Phone Number [facility] [place] [address] * Differential, Automated (04/15/2018 4:47 AM EDT) Neutrophil % 59.8 % [facility] Neutrophil Absolute 2.98 1.70 - 6.10 x10(3)/[facility] Lymph % 22.4 % [facility] Lymphocytes Abs 1.1 0.9 - 3.2 x10(3)/[facility] Monocyte % 11.2 % [facility] Monocyte Abs 0.6 0.3 - 0.9 x10(3)/[facility] Eos % 5.6 % [facility] Eosinophils Abs 0.3 0.0 - 0.4 x10(3)/[facility] [facility] Basophil % 0.4 % [facility] Baso Absolute 0.0 0.0 - 0.1 x10(3)/[facility] LABORATORY Immature Gran % 0.60 % [facility] Comment: Immature granulocytes(IG's)percentage and absolute count will include metamyelocytes, myelocytes, and promyelocytes. Blood smears from CBCs yielding IG's will be scanned manually for concordance. If this scan disagrees with the automated IG or if promyelocytes are noted, a manual differential will be performed. Immature Gran Absolute 0.03 0.00 - 0.04 x10(3)/[facility] LABORATORY Blood specimen (specimen) 04/15/2018 4:47 AM EDT 04/15/2018 4:56 AM EDT Narrative Resulting Agency Comment Spec In Lab Apple Gutierrez MD HEMATOLOGY ORDERABLE S [facility] [place] [address] * (ABNORMAL) Hemogram (04/15/2018 4:47 AM EDT) White Blood Cell 5.0 4.0 - 9.5 x10(3)/mc L [facility] Red Blood Cell 2.48(L) 4.58 - 5.54 x10(6)/mc L [facility] Hemoglobin 7.5(L) 13.7 - 16.5 gm/dL [facility] Hematocrit 23.3(L) 40.5 - 48.5 % [facility] Mean Cell Volume 94.0(H) 82.9 - 93.1 fL [facility] Mean Cell Hemoglobin 30.2 27.5 - 32.1 pg [facility] Mean Cell Hemoglobin Concentration 32.2 32.0 - 35.7 gm/dL [facility] Platelet 224 145 - 357 x10(3)/mc L [facility] RDW Standard Deviation 52.9(H) 36.0 - 45.0 fL [facility] RDW coefficient of variation 15.4(H) 11.4 - 13.8 % [facility] Mean Platelet Volume 8.3 7.6 - 12.9 fL [facility] NRBC% auto 0.0 % [facility] NRBC Absolute 0.000 0.000 - 0.000 x10(3)/mc L [facility] Blood specimen (specimen) 04/15/2018 4:47 AM EDT 04/15/2018 4:56 AM EDT Narrative Resulting Agency Comment Spec In Lab Apple Gutierrez MD HEMATOLOGY ORDERABLE S [facility] [place] [address] * (ABNORMAL) Basic Metabolic Panel (non-fasting) (04/15/2018 4:47 AM EDT) Glucose 105 65 - 199 mg/dL [facility] Comment:Diabetes: >=200 mg/d L plus symptoms Blood Urea Nitrogen 30(H) 10 - 20 mg/dL [facility] Creatinine 2.17(H) 0.80 - 1.50 mg/dL [facility] Sodium 138 135 - 145 mmol/L [facility] Potassium 4.6 3.5 - 5.0 mmol/L [facility] Comment: Please note: ??Patients with WBC >100,000 may have falsely elevated Potassium levels. ??For accurate Potassium quantification in these patients send serum separator tube (gold top) for subsequent determinations. ??Contact the Clinical Chemistry Laboratory if there are any questions. Chloride 105 98 - 107 mmol/L [facility] Carbon Dioxide 20(L) 22 - 31 mmol/L [facility] Anion Gap 13 5 - 15 mmol/L [facility] Calcium 7.6(L) 8.5 - 10.5 mg/dL [facility] Est Glomerular Filtration Rate 33(L) >=60 mL/min/1. 73 m?? [facility] Comment: The eGFR was calculated using the CKD-EPI equation. As with all creatinine based estimates of kidney function, eGFR values calculated with the CKD-EPI equation are not accurate in patients with acute kidney failure, extremes of body mass or the acutely ill. [email or web address]nkf eGFR 38(L) >=60 mL/min/1. 73 m?? [facility] Comment: The eGFR was calculated using the CKD-EPI equation. As with all creatinine based estimates of kidney function, eGFR values calculated with the CKD-EPI equation are not accurate in patients with acute kidney failure, extremes of body mass or the acutely ill. [email or web address]AB[facility]nkf Blood specimen (specimen) 04/15/2018 4:47 AM EDT 04/15/2018 4:56 AM EDT Narrative Resulting Agency Comment Spec In Lab Hay Sparks MD CHEMISTRY ORDERABLES [facility] [place] [address] * (ABNORMAL) Differential, Automated (04/14/2018 5:48 AM EDT) Neutrophil % 68.9 % [facility] Neutrophil Absolute 3.74 1.70 - 6.10 x10(3)/mc L [facility] Lymph % 15.7 % [facility] Lymphocytes Abs 0.8(L) 0.9 - 3.2 x10(3)/mc L [facility] Monocyte % 11.1 % [facility] Monocyte Abs 0.6 0.3 - 0.9 x10(3)/mc L [facility] Eos % 3.7 % [facility] Eosinophils Abs 0.2 0.0 - 0.4 x10(3)/[facility] LABORATORY Basophil % 0.2 % [facility] Baso Absolute 0.0 0.0 - 0.1 x10(3)/[facility] LABORATORY Immature Gran % 0.40 % [facility] Comment: Immature granulocytes(IG's)percentage and absolute count will include metamyelocytes, myelocytes, and promyelocytes. Blood smears from CBCs yielding IG's will be scanned manually for concordance. If this scan disagrees with the automated IG or if promyelocytes are noted, a manual differential will be performed. Immature Gran Absolute 0.02 0.00 - 0.04 x10(3)/[facility] LABORATORY Blood specimen (specimen) 04/14/2018 5:48 AM EDT 04/14/2018 5:59 AM EDT Narrative Resulting Agency Comment Spec In Lab Apple Gutierrez MD HEMATOLOGY ORDERABLE S [facility] [place] [address] * (ABNORMAL) Hemogram (04/14/2018 5:48 AM EDT) White Blood Cell 5.4 4.0 - 9.5 x10(3)/[facility] LABORATORY Red Blood Cell 2.48(L) 4.58 - 5.54 x10(6)/ L [facility] Hemoglobin 7.5(L) 13.7 - 16.5 gm/dL [facility] Hematocrit 22.9(L) 40.5 - 48.5 % [facility] Mean Cell Volume 92.3 82.9 - 93.1 fL [facility] Mean Cell Hemoglobin 30.2 27.5 - 32.1 pg [facility] Mean Cell Hemoglobin Concentration 32.8 32.0 - 35.7 gm/dL [facility] Platelet 208 145 - 357 x10(3)/mc L [facility] RDW Standard Deviation 51.8(H) 36.0 - 45.0 fL [facility] RDW coefficient of variation 15.4(H) 11.4 - 13.8 % [facility] Mean Platelet Volume 8.4 7.6 - 12.9 fL [facility] NRBC% auto 0.0 % [facility] NRBC Absolute 0.000 0.000 - 0.000 x10(3)/mc L [facility] Blood specimen (specimen) 04/14/2018 5:48 AM EDT 04/14/2018 5:59 AM EDT Narrative Resulting Agency Comment Spec In Lab Apple Gutierrez MD HEMATOLOGY ORDERABLE S Performing Organization Address [facility] Co de Phone Number [facility] [place] [address] * APTT (04/14/2018 5:48 AM EDT) Partial Thromboplastin Time 28 25 - 37 sec [facility] MD HEMATOLOGY ORDERA BLES Performing Organization Address City/[facility]/ZIP Co de Phone Number [facility] [place] [address] * (ABNORMAL) Prothrombin Time (04/14/2018 5:48 AM EDT) Prothrombin Time 15.1(H) 9.4 - 12.5 sec [facility] International Normalization Ratio 1.4 [facility] Comment: An [...] Lab Chase Olvera MD HEMATOLOGY ORDERA BLES [facility] [place] [address] * (ABNORMAL) Basic Metabolic Panel (non-fasting) (04/14/2018 5:48 AM EDT) Glucose 110 65 - 199 mg/dL [facility] Comment:Diabetes: >=200 mg/d L plus symptoms Blood Urea Nitrogen 32(H) 10 - 20 mg/dL [facility] Creatinine 2.38(H) 0.80 - 1.50 mg/dL [facility] Sodium 138 135 - 145 mmol/L [facility] Potassium 4.1 3.5 - 5.0 mmol/L [facility] Comment: Please note: ??Patients with WBC >100,000 may have falsely elevated Potassium levels. ??For accurate Potassium quantification in these patients send serum separator tube (gold top) for subsequent determinations. ??Contact the Clinical Chemistry Laboratory if there are any questions. Chloride 106 98 - 107 mmol/L [facility] Carbon Dioxide 20(L) 22 - 31 mmol/L [facility] Anion Gap 12 5 - 15 mmol/L [facility] Calcium 7.6(L) 8.5 - 10.5 mg/dL [facility] Est Glomerular Filtration Rate 29(L) >=60 mL/min/1. 73 m?? [facility] Comment: The eGFR was calculated using the CKD-EPI equation. As with all creatinine based estimates of kidney function, eGFR values calculated with the CKD-EPI equation are not accurate in patients with acute kidney failure, extremes of body mass or the acutely ill. http://[employer]/[facility]nk[facility] eGFR 34(L) >=60 mL/min/1. 73 m?? [facility] Comment: The eGFR was calculated using the CKD-EPI equation. As with all creatinine based estimates of kidney function, eGFR values calculated with the CKD-EPI equation are not accurate in patients with acute kidney failure, extremes of body mass or the acutely ill. [email or web address]nkf Blood specimen (specimen) 04/14/2018 5:48 AM EDT 04/14/2018 5:59 AM EDT Narrative Resulting Agency Comment Spec In Lab Hay Sparks MD CHEMISTRY ORDERABLES Performing Organization Address City/State/[facility] Co de Phone Number [facility] [place] [address] * Differential, Automated (04/13/2018 8:14 AM EDT) Neutrophil % 66.0 % [facility] Neutrophil Absolute 3.49 1.70 - 6.10 x10(3)/[facility] LABORATORY Lymph % 16.3 % [facility] Lymphocytes Abs 0.9 0.9 - 3.2 x10(3)/[facility] LABORATORY Monocyte % 10.4 % [facility] Monocyte Abs 0.6 0.3 - 0.9 x10(3)/[facility] LABORATORY Eos % 6.3 % [facility] Eosinophils Abs 0.3 0.0 - 0.4 x10(3)/[facility] LABORATORY Basophil % 0.4 % [facility] Baso Absolute 0.0 0.0 - 0.1 x10(3)/[facility] LABORATORY Immature Gran % 0.60 % [facility] Comment: Immature granulocytes(IG's)percentage and absolute count will include metamyelocytes, myelocytes, and promyelocytes. Blood smears from CBCs yielding IG's will be scanned manually for concordance. If this scan disagrees with the automated IG or if promyelocytes are noted, a manual differential will be performed. Immature Gran Absolute 0.03 0.00 - 0.04 x10(3)/mcL [facility] Blood specimen (specimen) 04/13/2018 8:14 AM EDT 04/13/2018 8:21 AM EDT Narrative Resulting Agency Comment Spec In Lab Apple uGtierrez MD HEMATOLOGY ORDERABLE S [facility] [place] [address] * (ABNORMAL) Hemogram (04/13/2018 8:14 AM EDT) White Blood Cell 5.3 4.0 - 9.5 x10(3)/mc L [facility] Red Blood Cell 2.53(L) 4.58 - 5.54 x10(6)/mc L [facility] Hemoglobin 7.8(L) 13.7 - 16.5 gm/dL [facility] Hematocrit 23.3(L) 40.5 - 48.5 % [facility] Mean Cell Volume 92.1 82.9 - 93.1 fL [facility] Mean Cell Hemoglobin 30.8 27.5 - 32.1 pg [facility] Mean Cell Hemoglobin Concentration 33.5 32.0 - 35.7 gm/dL [facility] Platelet 190 145 - 357 x10(3)/mc L [facility] RDW Standard Deviation 53.5(H) 36.0 - 45.0 fL [facility] RDW coefficient of variation 15.9(H) 11.4 - 13.8 % [facility] Mean Platelet Volume 8.2 7.6 - 12.9 fL [facility] NRBC% auto 0.0 % [facility] NRBC Absolute 0.000 0.000 - 0.000 x10(3)/mc L [facility] Blood specimen (specimen) 04/13/2018 8:14 AM EDT 04/13/2018 8:21 AM EDT Narrative Resulting Agency Comment Spec In Lab Apple Gutierrez MD HEMATOLOGY ORDERABLE S Performing Organization Address [facility] Co de Phone Number [facility] [place] [address] * APTT (04/13/2018 8:14 AM EDT) Partial Thromboplastin Time 29 25 - 37 sec [facility] MD HEMATOLOGY ORDERA BLES Performing Organization Address [facility] de Phone Number [facility] [place] [address] * (ABNORMAL) Prothrombin Time (04/13/2018 8:14 AM EDT) Prothrombin Time 17.3(H) 9.4 - 12.5 sec [facility] International Normalization Ratio 1.6 [facility] Comment: An [...] Lab Chase Olvera MD HEMATOLOGY ORDERA BLES [facility] [place] [address] * (ABNORMAL) Basic Metabolic Panel (non-fasting) (04/13/2018 8:14 AM EDT) Glucose 108 65 - 199 mg/dL [facility] Comment:Diabetes: >=200 mg/d L plus symptoms Blood Urea Nitrogen 30(H) 10 - 20 mg/dL [facility] Creatinine 2.28(H) 0.80 - 1.50 mg/dL [facility] Sodium 138 135 - 145 mmol/L [facility] Potassium 4.5 3.5 - 5.0 mmol/L [facility] Comment: Please note: ??Patients with WBC >100,000 may have falsely elevated Potassium levels. ??For accurate Potassium quantification in these patients send serum separator tube (gold top) for subsequent determinations. ??Contact the Clinical Chemistry Laboratory if there are any questions. Chloride 104 98 - 107 mmol/L [facility] Carbon Dioxide 20(L) 22 - 31 mmol/L [facility] Anion Gap 14 5 - 15 mmol/L [facility] Calcium 7.7(L) 8.5 - 10.5 mg/dL [facility] Est Glomerular Filtration Rate 31(L) >=60 mL/min/1. 73 m?? [facility] Comment: The eGFR was calculated using the CKD-EPI equation. As with all creatinine based estimates of kidney function, eGFR values calculated with the CKD-EPI equation are not accurate in patients with acute kidney failure, extremes of body mass or the acutely ill. [email or web address] eGFR 36(L) >=60 mL/min/1. 73 m?? [facility] Comment: The eGFR was calculated using the CKD-EPI equation. As with all creatinine based estimates of kidney function, eGFR values calculated with the CKD-EPI equation are not accurate in patients with acute kidney failure, extremes of body mass or the acutely ill. [email or web address] Blood specimen (specimen) 04/13/2018 8:14 AM EDT 04/13/2018 8:21 AM EDT Narrative Resulting Agency Comment Spec In Lab Hay Sparks MD CHEMISTRY ORDERABLES Performing Organization Address [facility] de Phone Number [facility] [place] [address] * Tacrolimus level (04/13/2018 8:14 AM EDT) Tacrolimus <2.0 ng/mL [facility] Comment: Trough therapeutic: ??5-15 ng/mL Performed by ultra-performance liquid chromatography tandem mass spectrometry (UPLCMS/MS). This test was developed and its performance characteristics determined by [facility]. It has not been cleared [...] MD CHEMISTRY ORDERAB LES Performing Organization Address [facility] de Phone Number [facility] [place] [address] * (ABNORMAL) Protein/Creatinine Ratio, urine (04/13/2018 3:45 AM EDT) Creatinine, Urine 51 mg/dL [facility] Protein, Urine 373(H) 0 - 12 mg/dL [facility] Protein / Creatinine Ratio, Urine 7.3 ratio [facility] Urine specimen (specimen) 04/13/2018 3:45 AM EDT 04/13/2018 3:55 AM EDT Narrative Resulting Agency Comment Spec In Lab Chase Olvera MD URINE ORDERABLES Performing Organization Address [facility]/ZIP Co de Phone Number [facility] [place] [address] * (ABNORMAL) Urinalysis Microscopic Exam (04/13/2018 1:51 AM EDT) RBC, Urine 4(H) 0 - 3 /HPF [facility] WBC, Urine 1 0 - 3 /HPF [facility] Transitional Epithelial Cells, Urine <1 <=1 /HPF [facility] Hyaline Casts, Urine 4(H) 0 - 2 /LPF [facility] Urine specimen obtained by clean catch procedure (specimen) 04/13/2018 1:51 AM EDT 04/13/2018 1:58 AM EDT Narrative Resulting Agency Comment Spec In Lab Rasta Hernández MD URINE ORDERABLES Performing Organization Address [facility] Co de Phone Number [facility] [place] [address] * (ABNORMAL) Urinalysis with reflex Culture (04/13/2018 1:51 AM EDT) Glucose, Urine Dipstick Negative Negative mg/dL [facility] Protein, Urine Dipstick >=500(A) Negative mg/dL [facility] Bilirubin, Urine Dipstick Negative Negative mg/dL [facility] Comment: Clinical correlation required for positive Urine Bilirubin results as false positive may occur with some drugs and drug related products. If a false positive is suspected a serum total bilirubin should be considered if clinically indicated. Urobilinogen, Urine Dipstick Normal Normal mg/dL [facility] pH, Urn (dipstick) 7.0 5.0 - 8.0 [facility] Blood, Urine Dipstick Negative Negative mg/dL [facility] Ketone, Urine Dipstick Negative Negative mg/dL [facility] Nitrite, Urine Dipstick Negative Negative [facility] Leukocytes, Urine Dipstick Negative Negative [facility] LAB[facility]ATORY Appearance, Urine Dipstick Clear Clear [facility] Specific [place] Urine Automated 1.017 1.002 - 1.030 [facility] Color, Urine Dipstick Yellow Yellow [facility] Reflex to Culture No [facility] Urine specimen obtained by clean catch procedure (specimen) 04/13/2018 1:51 AM EDT 04/13/2018 1:58 AM EDT Narrative Resulting Agency Comment Spec In Lab Chase Olvera MD URINE ORDERABLES [facility] [place] [address] * MRI Angiogram Neck wo Contrast (04/12/2018 [...] atherosclerosis, NO CONTRAST TECHNIQUE: MRA of the [place] and MRA of the neck were performed without IV contrast, with aygl-hy-tpfxyc technique. ?? COMPARISON: MR head 04/07/2018 FINDINGS: MRA [place]: The intracranial internal carotid arteries, vertebral arteries, basilar artery, superior cerebellar arteries are normal in course and caliber. The bilateral MARCUS, MCA, and [employer] are normal in course and caliber. No focal stenosis caliber change or aneurysm.. MRA neck: Mvfj-sg-fvyhky imaging excludes the arch. Vertebral arteries, common carotid arteries, bilateral ECA, ICA are normal in course and caliber. Procedure Note Sabrina Vargas MD - 04/12/2018 EXAMINATION: MRI ANGIOGRAM HEAD WO CONTRAST (GENERIC), MRI ANGIOGRAM NECKWO CONTRAST CLINICAL HISTORY: question intra cranial atherosclerosis, NO CONTRAST TECHNIQUE: MRA of the [place] and MRA of the neck were performed withoutIV contrast, with iqjx-bz-rlgozy technique. COMPARISON: MR head 04/07/2018 FINDINGS: MRA [place]: The intracranial internal carotid arteries, vertebral arteries, basilarartery, superior cerebellar arteries are normal in course and caliber. Thebilateral MARCUS, MCA, and CH[employer] HATCH[employer] HELPER are normal in course and caliber. No focal stenosiscaliber change or aneurysm.. MRA neck: [id number] imaging excludes the arch. Vertebral arteries, common [...] atherosclerosis, NO CONTRAST TECHNIQUE: MRA of the [place] and MRA of the neck were performed without IV contrast, with tdlc-eb-ylzadg technique. ?? COMPARISON: MR head 04/07/2018 FINDINGS: MRA [place]: The intracranial internal carotid arteries, vertebral arteries, basilar artery, superior cerebellar arteries are normal in course and caliber. The bilateral MARCUS, MCA, and CH[employer] H[employer] HELPER are normal in course and caliber. No focal stenosis caliber change or aneurysm.. MRA neck: Oxpi-dl-ehpvia imaging excludes the arch. Vertebral arteries, common carotid arteries, bilateral ECA, ICA are normal in course and caliber. Procedure Note Sabrina Vargas MD - 04/12/2018 EXAMINATION: MRI ANGIOGRAM HEAD WO CONTRAST (GENERIC), MRI ANGIOGRAM NECKWO CONTRAST CLINICAL HISTORY: question intra cranial atherosclerosis, NO CONTRAST TECHNIQUE: MRA of the [place] and MRA of the neck were performed withoutIV contrast, with wrpi-fp-wueuyt technique. COMPARISON: MR head 04/07/2018 FINDINGS: MRA [place]: The intracranial internal carotid arteries, vertebral arteries, basilarartery, superior cerebellar arteries are normal in course and caliber. Thebilateral MARCUS, MCA, and CH[employer] HATCH[employer] HELPER are normal in course and caliber. No focal stenosiscaliber change or aneurysm.. MRA neck: Deyr-zb-zynqee imaging excludes the arch. Vertebral arteries, common carotid arteries, bilateral ECA, ICA are normalin course and caliber. IMPRESSION Normal MRA of the head and neck. I have personally reviewed the image(s) and the residents interpretationand agree with the findings, Sabrina Chacko MD at 04/12/2018 5:27 PM 5:27 PM Chase Olvera MD IM MRI ORDERABLE S * Gold Tube HOLD (04/12/2018 8:40 AM EDT) [facility] Gold Hold Sample in lab. [facility] Blood specimen (specimen) Venous Draw / Unknown 04/12/2018 8:40 AM EDT 04/12/2018 9:16 AM EDT Apple Gutierrez MD CHEMISTRY ORDERABLES [facility] [place] [address] * (ABNORMAL) Differential, Automated (04/12/2018 8:40 AM EDT) Neutrophil % 65.6 % [facility] Neutrophil Absolute 3.27 1.70 - 6.10 x10(3)/[facility] LABORATORY Lymph % 15.6 % [facility] Lymphocytes Abs 0.8(L) 0.9 - 3.2 x10(3)/[facility] LABORATORY Monocyte % 11.0 % [facility] Monocyte Abs 0.6 0.3 - 0.9 x10(3)/[facility] LABORATORY Eos % 6.6 % [facility] Eosinophils Abs 0.3 0.0 - 0.4 x10(3)/[facility] LABORATORY Basophil % 0.6 % [facility] Baso Absolute 0.0 0.0 - 0.1 x10(3)/[facility] LABORATORY Immature Gran % 0.60 % [facility] Comment: Immature granulocytes(IG's)percentage and absolute count will include metamyelocytes, myelocytes, and promyelocytes. Blood smears from CBCs yielding IG's will be scanned manually for concordance. If this scan disagrees with the automated IG or if promyelocytes are noted, a manual differential will be performed. Immature Gran Absolute 0.03 0.00 - 0.04 x10(3)/[facility] LABORATORY Blood specimen (specimen) 04/12/2018 8:40 AM EDT 04/12/2018 9:15 AM EDT Narrative Resulting Agency Comment Spec In Lab Apple Gutierrez MD HEMATOLOGY ORDERABLE S [facility] [place] [address] * (ABNORMAL) Hemogram (04/12/2018 8:40 AM EDT) White Blood Cell 5.0 4.0 - 9.5 x10(3)/[facility] LABORATORY Red Blood Cell 2.60(L) 4.58 - 5.54 x10(6)/mc L [facility] Hemoglobin 7.9(L) 13.7 - 16.5 gm/dL [facility] Hematocrit 24.0(L) 40.5 - 48.5 % [facility] Mean Cell Volume 92.3 82.9 - 93.1 fL [facility] Mean Cell Hemoglobin 30.4 27.5 - 32.1 pg [facility] Mean Cell Hemoglobin Concentration 32.9 32.0 - 35.7 gm/dL [facility] Platelet 183 145 - 357 x10(3)/mc L [facility] RDW Standard Deviation 54.2(H) 36.0 - 45.0 [facility] LABORATORY RDW coefficient of variation 16.0(H) 11.4 - 13.8 % [facility] Mean Platelet Volume 8.8 7.6 - 12.9 [facility]ORY NRBC% auto 0.0 % [facility] NRBC Absolute 0.000 0.000 - 0.000 x10(3)/mc L [facility] Blood specimen (specimen) 04/12/2018 8:40 AM EDT 04/12/2018 9:15 AM EDT Narrative Resulting Agency Comment Spec In Lab Appel Gutierrez MD HEMATOLOGY ORDERABLE S [facility] [place] [address] * APTT (04/12/2018 8:40 AM EDT) Partial Thromboplastin Time 32 25 - 37 sec [facility] MD HEMATOLOGY ORDERA BLES Performing Organization Address [facility] de Phone Number [facility] [place] [address] * (ABNORMAL) Prothrombin Time (04/12/2018 8:40 AM EDT) Prothrombin Time 20.0(H) 9.4 - 12.5 sec [facility] International Normalization Ratio 1.8 [facility] Comment: An [...] MD HEMATOLOGY ORDERA BLES Performing Organization Address [facility] Co de Phone Number [facility] [place] [address] * (ABNORMAL) Basic Metabolic Panel (non-fasting) (04/12/2018 8:40 AM EDT) Glucose 113 65 - 199 mg/dL [facility] Comment:Diabetes: >=200 mg/d L plus symptoms Blood Urea Nitrogen 31(H) 10 - 20 mg/dL [facility] Creatinine 2.35(H) 0.80 - 1.50 mg/dL [facility] Sodium 140 135 - 145 mmol/L [facility] Potassium 4.4 3.5 - 5.0 mmol/L [facility] Comment: Please note: ??Patients with WBC >100,000 may have falsely elevated Potassium levels. ??For accurate Potassium quantification in these patients send serum separator tube (gold top) for subsequent determinations. ??Contact the Clinical Chemistry Laboratory if there are any questions. Chloride 106 98 - 107 mmol/L [facility] Carbon Dioxide 20(L) 22 - 31 mmol/L [facility] Anion Gap 14 5 - 15 mmol/L [facility] Calcium 7.4(L) 8.5 - 10.5 mg/dL [facility] Est Glomerular Filtration Rate 30(L) >=60 mL/min/1. 73 m?? [facility] Comment: The eGFR was calculated using the CKD-EPI equation. As with all creatinine based estimates of kidney function, eGFR values calculated with the CKD-EPI equation are not accurate in patients with acute kidney failure, extremes of body mass or the acutely ill. [email or web address] eGFR 35(L) >=60 mL/min/1. 73 m?? [facility] Comment: The eGFR was calculated using the CKD-EPI equation. As with all creatinine based estimates of kidney function, eGFR values calculated with the CKD-EPI equation are not accurate in patients with acute kidney failure, extremes of body mass or the acutely ill. [email or web address] Blood specimen (specimen) 04/12/2018 8:40 AM EDT 04/12/2018 9:15 AM EDT Narrative Resulting Agency Comment Spec In Lab Hay Sparks MD CHEMISTRY ORDERABLES [facility] [place] [address] * ECHO COMPLETE (04/11/2018 2:53 PM EDT) EF 65 HEARTLAB SYSTEM Anatomical Region Laterality Modality Other 04/11/2018 Narrative 04/11/2018 3:21 PM EDT Amended Report Procedure: ?Transthoracic Echocardiogram Patient: ?ARNOL CHRISTY J ? (Age): 1960(57y) Med Rec#: ? [id number] ?Sex: ?M ? Site Loc: ? [facility] ?Ht / Wt: ??178(cm)/91.6(kg Pt. Loc: ?Adult Floor ? BSA: ?2.1 Study Date: ?? 04/11/2018 ?Pt. Type: Outpatient Tape: ? Referring: Lida Peter Reading: Tim Estrella ([id number]) Cushion Stuffer: Chidi Steve [facility] Cushion Stuffer 2: Yimi Norman Diagnosis: *Cerebral infarction due [...] ? Mid-Inferior ?Normal ? Mid-Inferoseptal ?Normal ? [place]-Septal ? Normal ? [place]-Anterior ? Normal ? [place]-Lateral ?Normal ? [place]-Inferior ? Normal ? [place]-Tip ?Normal ? This report has been electronically signed by: Tim Estrella M.D. ? 04/11/2018 15:21:34 Images reviewed and interpretation verified [facility] Cardiac Ultrasound Laboratory Procedure Note Tim Estrella MD - 04/11/2018 Amended Report Procedure: Transthoracic Echocardiogram Patient: ARNOL DU(Age): 1960(57y) Med Rec#: [id number] Sex: M Site Loc: [facility] Ht / Wt: 178(cm)/91.6(kg Pt. Loc: Adult Floor BSA: 2.1 Study Date: 04/11/2018 Pt. Type: Outpatient Tape: Referring: Lida Peter Reading: Tim Estrella ([id number]) Cushion Stuffer: Chidi Steve [facility] Cushion Stuffer 2: Yimi Norman Diagnosis: *Cerebral infarction due [...] Normal Mid-Posterolateral Normal Mid-Inferior Normal Mid-Inferoseptal Normal [place]-Septal Normal [place]-Anterior Normal [place]-Lateral Normal [place]-Inferior Normal [place]-Tip Normal This report has been electronically signed by: Tim Estrella M.D. 04/11/2018 15:21:34 Images reviewed and interpretation verified [facility] Cardiac Ultrasound Laboratory Lida Peter MD ECHO ORDERABLES * ABORH Recheck Status (04/11/2018 6:28 AM EDT) Pathologist [facility] ABORH Type Recheck Completed [facility] Blood specimen (specimen) 04/11/2018 6:28 AM EDT 04/11/2018 6:28 AM EDT Narrative Resulting Agency Comment Spec In Lab Hanny Wiseman MD BLOOD BANK LAB ORDER KELLY [facility] [place] [address] * Antibody screen (04/11/2018 6:28 AM EDT) [facility] Ab Screen Interp Negative [facility] Expires at [id number] on: 04/14/2018 [facility] Blood specimen (specimen) 04/11/2018 6:28 AM EDT 04/11/2018 6:28 AM EDT Narrative Resulting Agency Comment Spec In Lab Hanny Wiseman MD BLOOD BANK LAB ORDER KELLY [facility] [place] [address] * ABO/Rh Typing (04/11/2018 6:28 AM EDT) ABORH Type A Pos [facility] Blood specimen (specimen) 04/11/2018 6:28 AM EDT 04/11/2018 6:28 AM EDT Narrative Resulting Agency Comment Spec In Lab Hanny Wiseman MD BLOOD BANK LAB ORDER KELLY [facility] [place] [address] * (ABNORMAL) Differential, Automated (04/11/2018 5:55 AM EDT) Neutrophil % 68.9 % [facility] Neutrophil Absolute 3.90 1.70 - 6.10 x10(3)/mc L [facility] Lymph % 14.7 % [facility] Lymphocytes Abs 0.8(L) 0.9 - 3.2 x10(3)/mc L [facility] Monocyte % 10.6 % [facility] Monocyte Abs 0.6 0.3 - 0.9 x10(3)/mc L [facility] Eos % 4.9 % [facility] Eosinophils Abs 0.3 0.0 - 0.4 x10(3)/mc L [facility] Basophil % 0.4 % [facility] Baso Absolute 0.0 0.0 - 0.1 x10(3)/mc L [facility] Immature Gran % 0.50 % [facility] Comment: Immature granulocytes(IG's)percentage and absolute count will include metamyelocytes, myelocytes, and promyelocytes. Blood smears from CBCs yielding IG's will be scanned manually for concordance. If this scan disagrees with the automated IG or if promyelocytes are noted, a manual differential will be performed. Immature Gran Absolute 0.03 0.00 - 0.04 x10(3)/mc L [facility] Blood specimen (specimen) 04/11/2018 5:55 AM EDT 04/11/2018 6:03 AM EDT Narrative Resulting Agency Comment Spec In Lab Apple Gutierrez MD HEMATOLOGY ORDERABLE S [facility] [place] [address] * (ABNORMAL) Hemogram (04/11/2018 5:55 AM EDT) White Blood Cell 5.7 4.0 - 9.5 x10(3)/mc L [facility] Red Blood Cell 2.44(L) 4.58 - 5.54 x10(6)/mc L [facility] Hemoglobin 7.4(L) 13.7 - 16.5 gm/dL [facility] Hematocrit 22.2(L) 40.5 - 48.5 % [facility] Mean Cell Volume 91.0 82.9 - 93.1 fL [facility] Mean Cell Hemoglobin 30.3 27.5 - 32.1 pg [facility] Mean Cell Hemoglobin Concentration 33.3 32.0 - 35.7 gm/dL [facility] Platelet 150 145 - 357 x10(3)/mc L [facility] RDW Standard Deviation 52.6(H) 36.0 - 45.0 fL [facility] RDW coefficient of variation 15.9(H) 11.4 - 13.8 % [facility] Mean Platelet Volume 9.1 7.6 - 12.9 fL [facility] NRBC% auto 0.0 % [facility] NRBC Absolute 0.000 0.000 - 0.000 x10(3)/mc L [facility] Blood specimen (specimen) 04/11/2018 5:55 AM EDT 04/11/2018 6:03 AM EDT Narrative Resulting Agency Comment Spec In Lab Apple Gutierrez MD HEMATOLOGY ORDERABLE S [facility] [place] [address] * APTT (04/11/2018 5:55 AM EDT) Partial [...] MD HEMATOLOGY ORDERA BLES Performing Organization Address [facility] Co de Phone Number [facility] [place] [address] * (ABNORMAL) Prothrombin Time (04/11/2018 5:55 AM EDT) Prothrombin Time 26.8(H) 9.4 - 12.5 sec [facility] International Normalization Ratio 2.4 [facility] Comment: An [...] MD HEMATOLOGY ORDERA BLES Performing Organization Address [facility] Co de Phone Number [facility] [place] [address] * (ABNORMAL) Basic Metabolic Panel (non-fasting) (04/11/2018 5:55 AM EDT) Glucose 112 65 - 199 mg/dL [facility] Comment:Diabetes: >=200 mg/d L plus symptoms Blood Urea Nitrogen 33(H) 10 - 20 mg/dL [facility] Creatinine 2.33(H) 0.80 - 1.50 mg/dL [facility] Sodium 144 135 - 145 mmol/L [facility] Potassium 4.5 3.5 - 5.0 mmol/L [facility] Comment: Please note: ??Patients with WBC >100,000 may have falsely elevated Potassium levels. ??For accurate Potassium quantification in these patients send serum separator tube (gold top) for subsequent determinations. ??Contact the Clinical Chemistry Laboratory if there are any questions. Chloride 110(H) 98 - 107 mmol/L [facility] Carbon Dioxide 22 22 - 31 mmol/L [facility] Anion Gap 12 5 - 15 mmol/L [facility] Calcium 7.3(L) 8.5 - 10.5 mg/dL [facility] Est Glomerular Filtration Rate 30(L) >=60 mL/min/1. 73 m?? [facility] Comment: The eGFR was calculated using the CKD-EPI equation. As with all creatinine based estimates of kidney function, eGFR values calculated with the CKD-EPI equation are not accurate in patients with acute kidney failure, extremes of body mass or the acutely ill. [email or web address] eGFR 35(L) >=60 mL/min/1. 73 m?? [facility] Comment: The eGFR was calculated using the CKD-EPI equation. As with all creatinine based estimates of kidney function, eGFR values calculated with the CKD-EPI equation are not accurate in patients with acute kidney failure, extremes of body mass or the acutely ill. [email or web address] Blood specimen (specimen) 04/11/2018 5:55 AM EDT 04/11/2018 6:04 AM EDT Narrative Resulting Agency Comment Spec In Lab Hay Sparks MD CHEMISTRY ORDERABLES [facility] [place] [address] * POCT Glucose (04/10/2018 7:56 AM EDT) Glucose, POC 119 65 - 199 mg/dL [facility] Comment: Supplemental ranges: <140 mg/dL before meals <180 mg/dL all other times of the day Blood specimen (specimen) 04/10/2018 7:56 AM EDT 04/10/2018 7:56 AM EDT Chase Olvera MD POINT OF CARE SHAZIA T ORDERABLES [facility] [place] [address] * (ABNORMAL) Differential, Automated (04/10/2018 5:35 AM EDT) Pathologist [facility] Neutrophil % 72.4 % [facility] Neutrophil Absolute 4.21 1.70 - 6.10 x10(3)/mc L [facility] Lymph % 12.7 % [facility] Lymphocytes Abs 0.7(L) 0.9 - 3.2 x10(3)/mc L [facility] Monocyte % 9.1 % [facility] Monocyte Abs 0.5 0.3 - 0.9 x10(3)/mc L [facility] Eos % 5.0 % [facility] Eosinophils Abs 0.3 0.0 - 0.4 x10(3)/mc L [facility] Basophil % 0.3 % [facility] Baso Absolute 0.0 0.0 - 0.1 x10(3)/mc L [facility] Immature Gran % 0.50 % [facility] Comment: Immature granulocytes(IG's)percentage and absolute count will include metamyelocytes, myelocytes, and promyelocytes. Blood smears from CBCs yielding IG's will be scanned manually for concordance. If this scan disagrees with the automated IG or if promyelocytes are noted, a manual differential will be performed. Immature Gran Absolute 0.03 0.00 - 0.04 x10(3)/ L [facility] Blood specimen (specimen) 04/10/2018 5:35 AM EDT 04/10/2018 6:09 AM EDT Narrative Resulting Agency Comment Spec In Lab Apple Gutierrez MD HEMATOLOGY ORDERABLE S [facility] [place] [address] * (ABNORMAL) Hemogram (04/10/2018 5:35 AM EDT) White Blood Cell 5.8 4.0 - 9.5 x10(3)/[facility] LABORAT[facility] Red Blood Cell 2.44(L) 4.58 - 5.54 x10(6)/[facility] Hemoglobin 7.3(L) 13.7 - 16.5 gm/dL [facility] Hematocrit 22.0(L) 40.5 - 48.5 % [facility] Mean Cell Volume 90.2 82.9 - 93.1 fL [facility] Mean Cell Hemoglobin 29.9 27.5 - 32.1 pg [facility] Mean Cell Hemoglobin Concentration 33.2 32.0 - 35.7 gm/dL [facility] Platelet 105(L) 145 - 357 x10(3)/[facility] RDW Standard Deviation 52.6(H) 36.0 - 45.0 [facility] RDW coefficient of variation 15.9(H) 11.4 - 13.8 % [facility] Mean Platelet Volume 9.6 7.6 - 12.9 [facility] NRBC% auto 0.0 % [facility] NRBC Absolute 0.000 0.000 - 0.000 x10(3)/[facility] Blood specimen (specimen) 04/10/2018 5:35 AM EDT 04/10/2018 6:09 AM EDT Narrative Resulting Agency Comment Spec In Lab Apple Gutierrez MD HEMATOLOGY ORDERABLE S Performing Organization Address [facility] Co de Phone Number [facility] [place] [address] * APTT (04/10/2018 5:35 AM EDT) Partial Thromboplastin Time 36 25 - 37 sec [facility] ORDERA BLES Performing Organization Address [facility] de Phone Number [facility] [place] [address] * (ABNORMAL) Prothrombin Time (04/10/2018 5:35 AM EDT) Prothrombin Time 28.7(H) 9.4 - 12.5 sec [facility] International Normalization Ratio 2.6 [facility] Comment: An [...] MD HEMATOLOGY ORDERA BLES Performing Organization Address [facility] Co de Phone Number [facility] [place] [address] * (ABNORMAL) Basic Metabolic Panel (non-fasting) (04/10/2018 5:35 AM EDT) Glucose 112 65 - 199 mg/dL [facility] Comment:Diabetes: >=200 mg/d L plus symptoms Blood Urea Nitrogen 33(H) 10 - 20 mg/dL [facility] Creatinine 2.59(H) 0.80 - 1.50 mg/dL [facility] Sodium 144 135 - 145 mmol/L [facility] Potassium 4.3 3.5 - 5.0 mmol/L [facility] Comment: Please note: ??Patients with WBC >100,000 may have falsely elevated Potassium levels. ??For accurate Potassium quantification in these patients send serum separator tube (gold top) for subsequent determinations. ??Contact the Clinical Chemistry Laboratory if there are any questions. Chloride 109(H) 98 - 107 mmol/L [facility] Carbon Dioxide 23 22 - 31 mmol/L [facility] Anion Gap 12 5 - 15 mmol/L [facility] Calcium 7.9(L) 8.5 - 10.5 mg/dL [facility] Est Glomerular Filtration Rate 27(L) >=60 mL/min/1. 73 m?? [facility] Comment: The eGFR was calculated using the CKD-EPI equation. As with all creatinine based estimates of kidney function, eGFR values calculated with the CKD-EPI equation are not accurate in patients with acute kidney failure, extremes of body mass or the acutely ill. [email or web address] eGFR 31(L) >=60 mL/min/1. 73 m?? [facility] Comment: The eGFR was calculated using the CKD-EPI equation. As with all creatinine based estimates of kidney function, eGFR values calculated with the CKD-EPI equation are not accurate in patients with acute kidney failure, extremes of body mass or the acutely ill. [email or web address] Blood specimen (specimen) 04/10/2018 5:35 AM EDT 04/10/2018 6:09 AM EDT Narrative Resulting Agency Comment Spec In Lab Hay Sparks MD CHEMISTRY ORDERABLES Performing Organization Address [facility] Co de Phone Number [facility] [place] [address] * POCT Glucose (04/09/2018 8:26 PM EDT) Glucose, POC 137 65 - 199 mg/dL [facility] Comment: Supplemental ranges: <140 mg/dL before meals <180 mg/dL all other times of the day Blood specimen (specimen) 04/09/2018 8:26 PM EDT 04/09/2018 8:26 PM EDT Chase Olvera MD POINT OF CARE SHAZIA T ORDERABLES Performing Organization Address [facility] Co de Phone Number [facility] [place] [address] * APTT (04/09/2018 8:25 PM EDT) Partial [...] MD HEMATOLOGY ORDERABLE S Performing Organization Address [facility]/ZIP Co de Phone Number [facility] [place] [address] * (ABNORMAL) Prothrombin Time (04/09/2018 8:25 PM EDT) Prothrombin Time 30.4(H) 9.4 - 12.5 sec [facility] International Normalization Ratio 2.7 [facility] Comment: An [...] Lab Lida Peter MD HEMATOLOGY ORDERABLE S [facility] [place] [address] * Transfuse thawed plasma (04/09/2018 6:04 PM [...] Peter MD BLOOD BANK PRODUCT O RDERABLES [facility] [place] [address] * (ABNORMAL) APTT (04/09/2018 10:03 AM EDT) Partial Thromboplastin Time 39(H) 25 - 37 sec [facility] MD HEMATOLOGY ORDERABLE S Performing Organization Address [facility] de Phone Number [facility] [place] [address] * (ABNORMAL) Prothrombin Time (04/09/2018 10:03 AM EDT) Prothrombin Time 47.7(H) 9.4 - 12.5 sec [facility] International Normalization Ratio 4.2 [facility] Comment: An [...] MD HEMATOLOGY ORDERABLE S Performing Organization Address [facility] de Phone Number [facility] [place] [address] * Differential, Automated (04/09/2018 3:05 AM EDT) Neutrophil % 74.9 % [facility] Neutrophil Absolute 6.08 1.70 - 6.10 x10(3)/[facility] LABORATORY Lymph % 12.2 % [facility] Lymphocytes Abs 1.0 0.9 - 3.2 x10(3)/[facility] Monocyte % 8.7 % [facility] Monocyte Abs 0.7 0.3 - 0.9 x10(3)/[facility] Eos % 3.2 % [facility] Eosinophils Abs 0.3 0.0 - 0.4 x10(3)/[facility] Basophil % 0.5 % [facility] Baso Absolute 0.0 0.0 - 0.1 x10(3)/[facility] Immature Gran % 0.50 % [facility] Comment: Immature granulocytes(IG's)percentage and absolute count will include metamyelocytes, myelocytes, and promyelocytes. Blood smears from CBCs yielding IG's will be scanned manually for concordance. If this scan disagrees with the automated IG or if promyelocytes are noted, a manual differential will be performed. Immature Gran Absolute 0.04 0.00 - 0.04 x10(3)/[facility] LABORATORY Blood specimen (specimen) 04/09/2018 3:05 AM EDT 04/09/2018 3:13 AM EDT Narrative Resulting Agency Comment Spec In Lab Apple Gutierrez MD HEMATOLOGY ORDERABLE S [facility] [place] [address] * (ABNORMAL) Hemogram (04/09/2018 3:05 AM EDT) [facility] Blood Cell 8.1 4.0 - 9.5 x10(3)/mc L [facility] Red Blood Cell 2.55(L) 4.58 - 5.54 x10(6)/mc L [facility] Hemoglobin 7.8(L) 13.7 - 16.5 gm/dL [facility] Hematocrit 22.8(L) 40.5 - 48.5 % [facility] Mean Cell Volume 89.4 82.9 - 93.1 fL [facility] Mean Cell Hemoglobin 30.6 27.5 - 32.1 pg [facility] Mean Cell Hemoglobin Concentration 34.2 32.0 - 35.7 gm/dL [facility] Platelet 100(L) 145 - 357 x10(3)/mc L [facility] RDW Standard Deviation 53.7(H) 36.0 - 45.0 fL [facility] RDW coefficient of variation 16.6(H) 11.4 - 13.8 % [facility] Mean Platelet Volume 8.9 7.6 - 12.9 fL [facility] NRBC% auto 0.0 % [facility] NRBC Absolute 0.000 0.000 - 0.000 x10(3)/mc L [facility] Blood specimen (specimen) 04/09/2018 3:05 AM EDT 04/09/2018 3:13 AM EDT Narrative Resulting Agency Comment Spec In Lab Apple Gutierrez MD HEMATOLOGY ORDERABLE S [facility] [place] [place] [address] * (ABNORMAL) Basic Metabolic Panel (non-fasting) (04/09/2018 3:05 AM EDT) Glucose 122 65 - 199 mg/dL [facility] Comment:Diabetes: >=200 mg/d L plus symptoms Blood Urea Nitrogen 44(H) 10 - 20 mg/dL [facility] Creatinine 3.00(H) 0.80 - 1.50 mg/dL [facility] Sodium 146(H) 135 - 145 mmol/L [facility] Potassium 4.9 3.5 - 5.0 mmol/L [facility] Comment: Please note: ??Patients with WBC >100,000 may have falsely elevated Potassium levels. ??For accurate Potassium quantification in these patients send serum separator tube (gold top) for subsequent determinations. ??Contact the Clinical Chemistry Laboratory if there are any questions. Chloride 110(H) 98 - 107 mmol/L [facility] Carbon Dioxide 21(L) 22 - 31 mmol/L [facility] Anion Gap 15 5 - 15 mmol/L [facility] Calcium 7.7(L) 8.5 - 10.5 mg/dL [facility] Est Glomerular Filtration Rate 22(L) >=60 mL/min/1. 73 m?? [facility] Comment: The eGFR was calculated using the CKD-EPI equation. As with all creatinine based estimates of kidney function, eGFR values calculated with the CKD-EPI equation are not accurate in patients with acute kidney failure, extremes of body mass or the acutely ill. [email or web address]ABELnkf eGFR 26(L) >=60 mL/min/1. 73 m?? [facility] Comment: The eGFR was calculated using the CKD-EPI equation. As with all creatinine based estimates of kidney function, eGFR values calculated with the CKD-EPI equation are not accurate in patients with acute kidney failure, extremes of body mass or the acutely ill. [email or web address] IDABELnkf Blood specimen (specimen) 04/09/2018 3:05 AM EDT 04/09/2018 3:13 AM EDT Narrative Resulting Agency Comment Spec In Lab Hay Sparks MD CHEMISTRY ORDERABLES Performing Organization Address City/[facility]/ZIP Co de Phone Number [facility] [place] [phone] * Lavender Tube HOLD (04/08/2018 8:10 PM EDT) Lavender Hold Sample in lab. [facility] Blood specimen (specimen) Venous Draw / Unknown 04/08/2018 8:10 PM EDT 04/08/2018 8:26 PM EDT John Rose MD HEMATOLOGY ORDERABLE S Performing Organization Address City/[facility]/ZIP Co de Phone Number [facility] [place] [address] * (ABNORMAL) Phenytoin level, total and free (04/08/2018 8:10 PM EDT) Phenytoin 7.3(L) 10.0 - 20.0 mg/L [facility] Comment: Theraputic range: ??10-20 mg/L Toxic: ??> 25 mg/L Patients with renal dysfunction (e.g.creatinine clearance < 30 mls/min) may show falsely elevated results due to accumulation of metabolites in renal failure Phenytoin, Free 0.95(L) 1.00 - 2.00 mg/L [facility] Comment: Therapeutic range: ? Free phenytoin: ??1.00-2.00 mg/L ? % Free phenytoin: ??8-12% Toxic range: ? Free phenytoin: ??>3.00 mg/L This test was developed and its performance characteristics determined by [facility]. It has not been cleared or approved by the FDA. The laboratory is regulated under CLIA as qualified to perform high-complexity testing. This test is used for clinical purposes. It should not be regarded as investigational or for research. Phenyt Free % 13(H) 8 - 12 % [facility] Comment: This test was developed and its performance characteristics determined by [facility]. It has not been cleared [...] In Lab Lida Peter MD CHEMISTRY ORDERABLES [facility] [place] [address] * Transfuse RBC (04/08/2018 4:59 PM EDT) Lida Peter MD NURSING TREATMENT OR DERABLES - BLOOD ADMIN * Transfuse RBC (04/08/2018 4:59 PM EDT) Lida Peter MD NURSING TREATMENT OR DERABLES - BLOOD ADMIN * EEG awake, asleep, drowsy, routine (04/08/2018 3:45 PM EDT) Narrative Beth Colunga - 04/08/2018 3:45 PM EDT Beth Colunga ? 04/08/2018 ??3:45 PM [facility] Department of Neurology In Patient Routine [...] channel digitized electroencephalogram was performed in the [facility] Clinical Neurophysiology Laboratory. The 10/20 international system of electrode placement was used and bipolar and referential electrode montages were recorded. ??In addition to EEG the patient was monitored for EKG and lateral/vertical eye movements. Video was recorded during the session. The duration of the recording was 30 minutes. VEGETABLE BUNCHER'S REPORT: Performed by: AT Patient was not sleep deprived. Sleep was not attained. Photic stimulation was performed. Hyperventilation was not performed. Effort was was not adequate. Movement and other artifact was not significant. Comments: none Lida Peter MD NEUROLOGY ORDERABLES * Carotid Duplex, Bilateral (04/08/2018 2:49 PM EDT) VB Text Report Department: Vascular Surgery Lab Patient: [id number] (CHRISTY AMBROSE) CPT: 67501 ICD10: I63.9 Referring Physician: LIDA PETER ?? [...] Peter MD VASCULAR ORDERABLES Performing Organization Address [facility] Co de Phone Number [facility] * (ABNORMAL) Levetiracetam level (04/08/2018 1:55 PM EDT) Levetiracetam Lvl (NOVEMBER) 47.4(H) 12.0 - 46.0 mcg/mL [facility] Comment: ADDITIONAL INFORMATION This test was developed and its performance characteristics determined by [facility] in a manner consistent with CLIA requirements. This test has not been cleared or approved by the U.S. Food and Drug Administration. Test Performed by: [facility] - [address] [address] Blood specimen (specimen) 04/08/2018 1:55 PM EDT 04/08/2018 3:54 PM EDT Narrative Resulting Agency Comment Spec In Lab Lida Peter MD LAB SEND OUT ORDERAB LES Performing Organization Address [facility] Co de Phone Number [facility] [place] [place] [address] * Prepare RBC (04/08/2018 11:15 AM EDT) Dispensed? No [facility] Blood specimen (specimen) 04/08/2018 11:15 AM EDT 04/08/2018 11:11 AM EDT Lida Peter MD BLOOD BANK PRODUCT O RDERABLES Performing Organization Address [facility] Co de Phone Number [facility] [place] [place] [address] * Prepare RBC (04/08/2018 11:15 AM EDT) Dispensed? Yes [facility] Blood specimen (specimen) 04/08/2018 11:15 AM EDT 04/08/2018 11:11 AM EDT Lida Peter MD BLOOD BANK PRODUCT O RDERABLES Performing Organization Address [facility] Co de Phone Number [facility] [place] [address] * (ABNORMAL) APTT (04/08/2018 10:45 AM EDT) Partial Thromboplastin Time 38(H) 25 - 37 sec [facility] MD HEMATOLOGY ORDERABLE S Performing Organization Address [facility] Co de Phone Number [facility] [place] [address] * (ABNORMAL) Prothrombin Time (04/08/2018 10:45 AM EDT) Prothrombin Time 51.2(H) 9.4 - 12.5 sec [facility] International Normalization Ratio 4.5 [facility] Comment: An [...] HEMATOLOGY ORDERABLE S Performing Organization Address City/[facility]/ZIP Co de Phone Number [facility] [place] [address] * (ABNORMAL) CK (04/08/2018 10:45 AM EDT) Creatine Kinase 646(H) 0 - 200 unit/L [facility] Blood specimen (specimen) 04/08/2018 10:45 AM EDT 04/08/2018 10:55 AM EDT Narrative Resulting Agency Comment Spec In Lab Lida Peter MD CHEMISTRY ORDERABLES Performing Organization Address [facility] Co de Phone Number [facility] [place] [address] * (ABNORMAL) Hemoglobin and Hematocrit, blood (04/08/2018 10:45 AM EDT) Hemoglobin 7.2(L) 13.7 - 16.5 gm/dL [facility] Hematocrit 21.3(L) 40.5 - 48.5 % [facility] Blood specimen (specimen) 04/08/2018 10:45 AM EDT 04/08/2018 10:55 AM EDT Narrative Resulting Agency Comment Spec In Lab Lida Peter MD HEMATOLOGY ORDERABLE S Performing Organization Address City/[facility]/ZIP Co de Phone Number [facility] [place] [address] * Tacrolimus level (04/08/2018 8:30 AM EDT) Tacrolimus 2.1 ng/mL [facility] Comment: Trough therapeutic: ??5-15 ng/mL Performed by ultra-performance liquid chromatography tandem mass spectrometry (UPLCMS/MS). This test was developed and its performance characteristics determined by [facility]. It has not been cleared [...] Peter MD CHEMISTRY ORDERABLES Performing Organization Address [facility] [place] [address] * Prepare RBC (04/08/2018 4:55 AM EDT) Dispensed? Yes [facility] Blood specimen (specimen) 04/08/2018 4:55 AM EDT 04/08/2018 4:59 AM EDT Lida Peter MD BLOOD BANK PRODUCT O RDERABLES Performing Organization Address [facility] [place] [address] * Blue Tube HOLD (04/08/2018 4:05 AM EDT) Blue Hold Sample in lab. [facility] Blood specimen (specimen) Venous Draw / Unknown 04/08/2018 4:05 AM EDT 04/08/2018 4:21 AM EDT Apple Gutierrez MD HEMATOLOGY ORDERABLE S Performing Organization Address [facility] Co de Phone Number [facility] [place] [address] * (ABNORMAL) Differential, Automated (04/08/2018 4:05 AM EDT) Neutrophil % 81.8 % [facility] Neutrophil Absolute 7.13(H) 1.70 - 6.10 x10(3)/ L [facility] Lymph % 8.0 % [facility] Lymphocytes Abs 0.7(L) 0.9 - 3.2 x10(3)/[facility] Monocyte % 7.9 % [facility] Monocyte Abs 0.7 0.3 - 0.9 x10(3)/[facility] Eos % 1.8 % [facility] Eosinophils Abs 0.2 0.0 - 0.4 x10(3)/[facility] Basophil % 0.2 % [facility] Baso Absolute 0.0 0.0 - 0.1 x10(3)/[facility] Immature Gran % 0.30 % [facility] Comment: Immature granulocytes(IG's)percentage and absolute count will include metamyelocytes, myelocytes, and promyelocytes. Blood smears from CBCs yielding IG's will be scanned manually for concordance. If this scan disagrees with the automated IG or if promyelocytes are noted, a manual differential will be performed. Immature Gran Absolute 0.03 0.00 - 0.04 x10(3)/[facility] Blood specimen (specimen) 04/08/2018 4:05 AM EDT 04/08/2018 4:21 AM EDT Narrative Resulting Agency Comment Spec In Lab Apple Gutierrez MD HEMATOLOGY ORDERABLE S [facility] [place] [address] * (ABNORMAL) Hemogram (04/08/2018 4:05 AM EDT) White Blood Cell 8.7 4.0 - 9.5 x10(3)/[facility] Red Blood Cell 2.26(L) 4.58 - 5.54 x10(6)/[facility] Hemoglobin 6.8(L) 13.7 - 16.5 gm/dL [facility] Hematocrit 20.4(L) 40.5 - 48.5 % [facility] Mean Cell Volume 90.3 82.9 - 93.1 fL [facility] Mean Cell Hemoglobin 30.1 27.5 - 32.1 pg [facility] Mean Cell Hemoglobin Concentration 33.3 32.0 - 35.7 gm/dL [facility] Platelet 94(L) 145 - 357 x10(3)/mc L [facility] RDW Standard Deviation 57.9(H) 36.0 - 45.0 fL [facility] RDW coefficient of variation 17.7(H) 11.4 - 13.8 % [facility] Mean Platelet Volume 9.7 7.6 - 12.9 [facility] NRBC% auto 0.0 % [facility] NRBC Absolute 0.000 0.000 - 0.000 x10(3)/mc L [facility] Blood specimen (specimen) 04/08/2018 4:05 AM EDT 04/08/2018 4:21 AM EDT Narrative Resulting Agency Comment Spec In Lab Apple Gutierrez MD HEMATOLOGY ORDERABLE S [facility] [place] [address] * (ABNORMAL) Basic Metabolic Panel (non-fasting) (04/08/2018 4:05 AM EDT) Glucose 120 65 - 199 mg/dL [facility] Comment:Diabetes: >=200 mg/d L plus symptoms Blood Urea Nitrogen 47(H) 10 - 20 mg/dL [facility] Creatinine 2.93(H) 0.80 - 1.50 mg/dL [facility] Sodium 144 135 - 145 mmol/L [facility] Potassium 5.4(H) 3.5 - 5.0 mmol/L [facility] Comment: Please note: ??Patients with WBC >100,000 may have falsely elevated Potassium levels. ??For accurate Potassium quantification in these patients send serum separator tube (gold top) for subsequent determinations. ??Contact the Clinical Chemistry Laboratory if there are any questions. Chloride 115(H) 98 - 107 mmol/L [facility] Carbon Dioxide 16(L) 22 - 31 mmol/L [facility] Anion Gap 13 5 - 15 mmol/L [facility] Calcium 7.1(L) 8.5 - 10.5 mg/dL [facility] Comment:result rechecked-KS Est Glomerular Filtration Rate 23(L) >=60 mL/min/1. 73 m?? [facility] Comment: The eGFR was calculated using the CKD-EPI equation. As with all creatinine based estimates of kidney function, eGFR values calculated with the CKD-EPI equation are not accurate in patients with acute kidney failure, extremes of body mass or the acutely ill. [email or web address] eGFR 26(L) >=60 mL/min/1. 73 m?? [facility] Comment: The eGFR was calculated using the CKD-EPI equation. As with all creatinine based estimates of kidney function, eGFR values calculated with the CKD-EPI equation are not accurate in patients with acute kidney failure, extremes of body mass or the acutely ill. [email or web address] Blood specimen (specimen) 04/08/2018 4:05 AM EDT 04/08/2018 4:21 AM EDT Narrative Resulting Agency Comment Spec In Lab Hay Sparks MD CHEMISTRY ORDERABLES [facility] [place] [address] * MRI Brain wo Contrast (04/07/2018 9:11 [...] thoracic and lumbar spine were performed at [facility] on 04/06/2018. COMPARISON: CT chest and [...] thoracic and lumbar spine were performed at [facility] on 04/06/2018. COMPARISON: CT chest and [...] Glucose, POC 136 65 - 199 mg/dL [facility] Comment: Supplemental ranges: <140 mg/dL before meals <180 mg/dL all other times of the day Blood specimen (specimen) 04/07/2018 5:56 AM EDT 04/07/2018 5:56 AM EDT Lida Peter MD POINT OF CARE TEST O RDERABLES [facility] [place] [address] * (ABNORMAL) Cardiac Enzymes (LEB/CGP) (04/07/2018 5:55 AM EDT) Pathologist [facility] Troponin-T 0.15(H) 0.00 - 0.00 ng/mL [facility] Comment: The 99th percentile for Troponin [...] ischemia ?? New or presumed new significant [id number] wave (ST-T) changes or new left bundle [...] additional sample may be indicated. Reference: Third [place] Definition of Myocardial Infarction. Journal of the [place] [employer] 2012;60:1581-98 Creatine Kinase 700(H) 0 - 200 unit/L [facility] Blood specimen (specimen) 04/07/2018 5:55 AM EDT 04/07/2018 6:34 AM EDT Narrative Resulting Agency Comment Spec In Lab Lida Peter MD CHEMISTRY ORDERABLES Performing Organization Address [facility]/ZIP Co de Phone Number [facility] [place] [address] * (ABNORMAL) CK (04/07/2018 5:55 AM EDT) Creatine Kinase 699(H) 0 - 200 unit/L [facility] Blood specimen (specimen) 04/07/2018 5:55 AM EDT 04/07/2018 6:03 AM EDT Narrative Resulting Agency Comment Spec In Lab Lida Peter MD CHEMISTRY ORDERABLES Performing Organization Address City/[facility]/ZIP Co de Phone Number [facility] [place] [address] * (ABNORMAL) Hemoglobin and Hematocrit, blood (04/07/2018 5:55 AM EDT) Hemoglobin 7.2(L) 13.7 - 16.5 gm/dL [facility] Hematocrit 21.2(L) 40.5 - 48.5 % [facility] Blood specimen (specimen) 04/07/2018 5:55 AM EDT 04/07/2018 6:03 AM EDT Narrative Resulting Agency Comment Spec In Lab Lida Peter MD HEMATOLOGY ORDERABLE S Performing Organization Address City/[facility]/ZIP Co de Phone Number [facility] [place] [address] * Lactate, whole blood, send to lab (Leb/CGP) (04/07/2018 5:55 AM EDT) Lactate WB 1.2 0.5 - 2.2 mmol/L [facility] Blood specimen (specimen) 04/07/2018 5:55 AM EDT 04/07/2018 6:03 AM EDT Narrative Resulting Agency Comment Spec In Lab Lida Peter MD CHEMISTRY ORDERABLES Performing Organization Address [facility] Co de Phone Number [facility] [address] * (ABNORMAL) Basic Metabolic Panel (non-fasting) (04/07/2018 4:30 AM EDT) Pathologist [facility] Glucose 124 65 - 199 mg/dL [facility] Comment:Diabetes: >=200 mg/d L plus symptoms Blood Urea Nitrogen 50(H) 10 - 20 mg/dL [facility] Creatinine 2.68(H) 0.80 - 1.50 mg/dL [facility] Sodium 143 135 - 145 mmol/L [facility] Potassium 5.4(H) 3.5 - 5.0 mmol/L [facility] Comment: Please note: ??Patients with WBC >100,000 may have falsely elevated Potassium levels. ??For accurate Potassium quantification in these patients send serum separator tube (gold top) for subsequent determinations. ??Contact the Clinical Chemistry Laboratory if there are any questions. Chloride 116(H) 98 - 107 mmol/L [facility] Carbon Dioxide 16(L) 22 - 31 mmol/L [facility] Anion Gap 11 5 - 15 mmol/L [facility] Calcium 7.0(L) 8.5 - 10.5 mg/dL [facility] Est Glomerular Filtration Rate 25(L) >=60 mL/min/1. 73 m?? [facility] Comment: The eGFR was calculated using the CKD-EPI equation. As with all creatinine based estimates of kidney function, eGFR values calculated with the CKD-EPI equation are not accurate in patients with acute kidney failure, extremes of body mass or the acutely ill. [email or web address]ELnkf eGFR 29(L) >=60 mL/min/1. 73 m?? [facility] Comment: The eGFR was calculated using the CKD-EPI equation. As with all creatinine based estimates of kidney function, eGFR values calculated with the CKD-EPI equation are not accurate in patients with acute kidney failure, extremes of body mass or the acutely ill. [email or web address]nkf Blood specimen (specimen) 04/07/2018 4:30 AM EDT 04/07/2018 4:34 AM EDT Narrative Resulting Agency Comment Spec In Lab Lida Peter MD CHEMISTRY ORDERABLES Performing Organization Address [facility] Co de Phone Number [facility] [place] [address] * POCT Glucose (04/07/2018 3:35 AM EDT) Glucose, POC 131 65 - 199 mg/dL [facility] Comment: Supplemental ranges: <140 mg/dL before meals <180 mg/dL all other times of the day Blood specimen (specimen) 04/07/2018 3:35 AM EDT 04/07/2018 3:35 AM EDT Lida Peter MD POINT OF CARE TEST O RDERABLES Performing Organization Address City/[facility]/ZIP Co de Phone Number [facility] [place] [address] * Lactate, whole blood, send to lab (Leb/CGP) (04/07/2018 12:15 AM EDT) Lactate WB 1.5 0.5 - 2.2 mmol/L [facility] Blood specimen (specimen) 04/07/2018 12:15 AM EDT 04/07/2018 12:21 AM EDT Narrative Resulting Agency Comment Spec In Lab Lida Peter MD CHEMISTRY ORDERABLES Performing Organization Address [facility]/ZIP Co de Phone Number [facility] [place] [address] * (ABNORMAL) CK (04/07/2018 12:15 AM EDT) Creatine Kinase 608(H) 0 - 200 unit/L [facility] Comment:result rechecked-RR Blood specimen (specimen) 04/07/2018 12:15 AM EDT 04/07/2018 12:21 AM EDT Narrative Resulting Agency Comment Spec In Lab Lida Peter MD CHEMISTRY ORDERABLES Performing Organization Address [facility] Co de Phone Number [facility] [place] [address] * (ABNORMAL) Hemoglobin and Hematocrit, blood (04/07/2018 12:15 AM EDT) [facility] Hemoglobin 7.9(L) 13.7 - 16.5 gm/dL [facility] Hematocrit 23.1(L) 40.5 - 48.5 % [facility] Blood specimen (specimen) 04/07/2018 12:15 AM EDT 04/07/2018 12:21 AM EDT Narrative Resulting Agency Comment Spec In Lab Lida Peter MD HEMATOLOGY ORDERABLE S Performing Organization Address [facility] Co de Phone Number [facility] [place] [address] * (ABNORMAL) Basic Metabolic Panel (non-fasting) (04/07/2018 12:15 AM EDT) Glucose 167 65 - 199 mg/dL [facility] Comment:Diabetes: >=200 mg/d L plus symptoms Blood Urea Nitrogen 48(H) 10 - 20 mg/dL [facility] Creatinine 2.58(H) 0.80 - 1.50 mg/dL [facility] Sodium 143 135 - 145 mmol/L [facility] Potassium 6.1(Criti constance) 3.5 - 5.0 mmol/L [facility] Comment: Called by: RUPINDER, Read back by: EVELIN CALLEJAS, Date/Time:04/07/18 01:06. Please note: ??Patients with WBC >100,000 may have falsely elevated Potassium levels. ??For accurate Potassium quantification in these patients send serum separator tube (gold top) for subsequent determinations. ??Contact the Clinical Chemistry Laboratory if there are any questions. Chloride 117(H) 98 - 107 mmol/L [facility] Carbon Dioxide 15(L) 22 - 31 mmol/L [facility] Anion Gap 11 5 - 15 mmol/L [facility] Calcium 6.8(Criti constance) 8.5 - 10.5 mg/dL [facility] Comment:Called by: RUPINDER, Read back by: EVELIN CALLEJAS, Date/Time:04/07/18 01:06. Est Glomerular Filtration Rate 27(L) >=60 mL/min/1. 73 m?? [facility] Comment: The eGFR was calculated using the CKD-EPI equation. As with all creatinine based estimates of kidney function, eGFR values calculated with the CKD-EPI equation are not accurate in patients with acute kidney failure, extremes of body mass or the acutely ill. [email or web address]nk[facility] eGFR 31(L) >=60 mL/min/1. 73 m?? [facility] Comment: The eGFR was calculated using the CKD-EPI equation. As with all creatinine based estimates of kidney function, eGFR values calculated with the CKD-EPI equation are not accurate in patients with acute kidney failure, extremes of body mass or the acutely ill. [email or web address]f Blood specimen (specimen) 04/07/2018 12:15 AM EDT 04/07/2018 12:21 AM EDT Narrative Resulting Agency Comment Spec In Lab Lida Peter MD CHEMISTRY ORDERABLES Performing Organization Address [facility] Co de Phone Number [facility] [place] [address] * POCT Glucose (04/06/2018 8:30 PM EDT) Glucose, POC 177 65 - 199 mg/dL [facility] Comment: Supplemental ranges: <140 mg/dL before meals <180 mg/dL all other times of the day Blood specimen (specimen) 04/06/2018 8:30 PM EDT 04/06/2018 8:30 PM EDT Lida Peter MD POINT OF CARE TEST O RDERABLES Performing Organization Address [facility] Co de Phone Number [facility] [place] [address] * Request For 2nd Read CT Chest [...] Spleen: Normal. Kidneys/Adrenals: The RIGHT and LEFT rincon kidneys are severely atrophic. The patient status [...] chest, abdomen, and pelvis performed at an [facility] on 04/06/2018. 5 mm and 1 [...] Spleen: Normal. Kidneys/Adrenals: The RIGHT and LEFT rincon kidneys are severely atrophic.The patient status post [...] Absolute 7.32(H) 1.70 - 6.10 x10(3)/mc L [facility] Lymph % 4.8 % [facility] Lymphocytes Abs 0.4(L) 0.9 - 3.2 x10(3)/mc L [facility] Monocyte % 9.1 % [facility] Monocyte Abs 0.8 0.3 - 0.9 x10(3)/mc L [facility] Eos % 0.0 % [facility] Eosinophils Abs 0.0 0.0 - 0.4 x10(3)/mc L [facility] Basophil % 0.0 % [facility] Baso Absolute 0.0 0.0 - 0.1 x10(3)/mc L [facility] Immature Gran % 0.50 % [facility] Comment: Immature granulocytes(IG's)percentage and absolute count will include metamyelocytes, myelocytes, and promyelocytes. Blood smears from CBCs yielding IG's will be scanned manually for concordance. If this scan disagrees with the automated IG or if promyelocytes are noted, a manual differential will be performed. Immature Gran Absolute 0.04 0.00 - 0.04 x10(3)/mc L [facility] Blood specimen (specimen) 04/06/2018 5:40 PM EDT 04/06/2018 6:01 PM EDT Narrative Resulting Agency Comment Spec In Lab Natalya Minaya MD HEMATOLOGY ORDERABLE S [facility] [place] [address] * (ABNORMAL) Hemogram (04/06/2018 5:40 PM EDT) White Blood Cell 8.6 4.0 - 9.5 x10(3)/mc L [facility] Red Blood Cell 2.56(L) 4.58 - 5.54 x10(6)/[facility] Hemoglobin 7.8(L) 13.7 - 16.5 gm/dL [facility] Hematocrit 23.1(L) 40.5 - 48.5 % [facility] Mean Cell Volume 90.2 82.9 - 93.1 [facility] Mean Cell Hemoglobin 30.5 27.5 - 32.1 pg [facility] Mean Cell Hemoglobin Concentration 33.8 32.0 - 35.7 gm/dL [facility] Platelet 95(L) 145 - 357 x10(3)/ L [facility] RDW Standard Deviation 53.6(H) 36.0 - 45.0 [facility] RDW coefficient of variation 16.6(H) 11.4 - 13.8 % [facility] Mean Platelet Volume 9.5 7.6 - 12.9 [facility] NRBC% auto 0.0 % [facility] NRBC Absolute 0.000 0.000 - 0.000 x10(3)/ L [facility] Blood specimen (specimen) 04/06/2018 5:40 PM EDT 04/06/2018 6:01 PM EDT Narrative Resulting Agency Comment Spec In Lab Natalya Minaya MD HEMATOLOGY ORDERABLE S Performing Organization Address [facility]/ZIP Co de Phone Number [facility] [place] [place] [address] * Phosphorus (04/06/2018 5:40 PM EDT) Pathologist [facility] Phosphorus 3.3 2.5 - 4.5 mg/dL [facility] Blood specimen (specimen) 04/06/2018 5:40 PM EDT 04/06/2018 6:01 PM EDT Narrative Resulting Agency Comment Spec In Lab Lida Peter MD CHEMISTRY ORDERABLES Performing Organization Address [facility] Co de Phone Number [facility] [place] [address] * (ABNORMAL) Magnesium (04/06/2018 5:40 PM EDT) [facility] Magnesium 0.60(L) 0.69 - 1.07 mmol/L [facility] Blood specimen (specimen) 04/06/2018 5:40 PM EDT 04/06/2018 6:01 PM EDT Narrative Resulting Agency Comment Spec In Lab Lida Peter MD CHEMISTRY ORDERABLES Performing Organization Address [facility] Co de Phone Number [facility] [place] [address] * (ABNORMAL) Cardiac Enzymes (LEB/CGP) (04/06/2018 5:40 PM EDT) [facility] Troponin-T 0.20(H) 0.00 - 0.00 ng/mL [facility] Comment: The 99th percentile for Troponin [...] ischemia ?? New or presumed new significant DF-[id number]-[id number] wave (ST-T) changes or new left bundle [...] additional sample may be indicated. Reference: Third [place] Definition of Myocardial Infarction. Journal of the [place] [employer] 2012;60:1581-98 Creatine Kinase 249(H) 0 - 200 unit/L [facility] Blood specimen (specimen) 04/06/2018 5:40 PM EDT 04/06/2018 6:01 PM EDT Narrative Resulting Agency Comment Spec In Lab Lida Peter MD CHEMISTRY ORDERABLES [facility] [place] [address] * (ABNORMAL) CMP w/fasting Glucose (04/06/2018 5:40 PM EDT) Glucose Fasting 140(H) 65 - 99 mg/dL [facility] Comment: ?Fasting* Glucose Interpretive Criteria Normal [...] of Diabetes Mellitus, Position Statement from the [place] [employer]. ??Diabetes Care, Volume 33, Supplement 1, Jul 2009 Blood Urea Nitrogen 45(H) 10 - 20 mg/dL [facility] Creatinine 2.48(H) 0.80 - 1.50 mg/dL [facility] Sodium 145 135 - 145 mmol/L [facility] Potassium 5.2(H) 3.5 - 5.0 mmol/L [facility] Comment: Please note: ??Patients with WBC >100,000 may have falsely elevated Potassium levels. ??For accurate Potassium quantification in these patients send serum separator tube (gold top) for subsequent determinations. ??Contact the Clinical Chemistry Laboratory if there are any questions. Chloride 118(H) 98 - 107 mmol/L [facility] Carbon Dioxide 16(L) 22 - 31 mmol/L [facility] Anion Gap 11 5 - 15 mmol/L [facility] Calcium 6.7(Criti constance) 8.5 - 10.5 mg/dL [facility] Comment:Calcium not critical when adjusted for albumin concentration. Protein, Total 4.3(L) 6.1 - 8.0 gm/dL [facility] Albumin 2.3(L) 3.2 - 5.2 gm/dL [facility] Aspartate Aminotransferase 22 0 - 39 unit/L [facility] Alanine Aminotransferase 20 0 - 55 unit/L [facility] Alkaline Phosphatase 57 40 - 120 unit/L [facility] Bilirubin, Total 0.3 0.2 - 1.3 mg/dL [facility] Est Glomerular Filtration Rate 28(L) >=60 mL/min/1. 73 m?? [facility] Comment: The eGFR was calculated using the CKD-EPI equation. As with all creatinine based estimates of kidney function, eGFR values calculated with the CKD-EPI equation are not accurate in patients with acute kidney failure, extremes of body mass or the acutely ill. [email or web address]/[facility]nkf eGFR 32(L) >=60 mL/min/1. 73 m?? [facility] Comment: The eGFR was calculated using the CKD-EPI equation. As with all creatinine based estimates of kidney function, eGFR values calculated with the CKD-EPI equation are not accurate in patients with acute kidney failure, extremes of body mass or the acutely ill. [email or web address] Blood specimen (specimen) 04/06/2018 5:40 PM EDT 04/06/2018 6:01 PM EDT Narrative Resulting Agency Comment Spec In Lab Lida Peter MD CHEMISTRY ORDERABLES Performing Organization Address [facility] Co de Phone Number [facility] [place] [address] * APTT (04/06/2018 5:40 PM EDT) Partial Thromboplastin Time 30 25 - 37 sec [facility] MD HEMATOLOGY ORDERABLE S Performing Organization Address [facility] Co de Phone Number [facility] [place] [address] * (ABNORMAL) Prothrombin Time (04/06/2018 5:40 PM EDT) Prothrombin Time 24.1(H) 9.4 - 12.5 sec [facility] International Normalization Ratio 2.2 [facility] Comment: An [...] Lab Lida Peter MD HEMATOLOGY ORDERABLE S [facility] [place] [address] * (ABNORMAL) BLOOD GAS 2 ARTERIAL (04/06/2018 5:24 PM EDT) pH, Arterial 7.29(Crit ical) 7.35 - 7.45 [facility] Comment:Noted by instrument adjuster. PCO2, Arterial 31(L) 35 - 45 mmHg [facility] PO2, Arterial 65(L) 85 - 104 mmHg [facility] Bicarbonate, Arterial 15.2(L) 20.0 - 26.0 mmol/L [facility] Base Excess, Arterial -11.8(L) -3.0 - 3.0 mmol/L [facility] Hgb Blood Gas 8.4(L) 13.7 - 16.5 gm/dL [facility] Oxyhemoglobin, Arterial 93.0(L) 94.0 - 97.0 % [facility] Carboxyhemoglo bin, Arterial 0.3 % [facility] Comment: Nonsmokers: 0.5-1.5% COHB Smokers: Variable, but usually less than 10% Toxic: 20-30% COHB Lethal: Greater than 60% COHB Methemoglobin, Arterial 0.9 <=1.5 % [facility] Na Whole Blood 140 135 - 145 mmol/L [facility] K Whole Blood 5.0 3.5 - 5.0 mmol/L [facility] Comment: Please note: Patients with WBC >100,000 may have falsely elevated Potassium levels. Contact the Clinical Chemistry Laboratory if there are any questions. ICa Whole Blood 1.03(L) 1.15 - 1.33 mmol/L [facility] Comment: Note: ??Total bilirubin higher than 20 mg/dL may lead to falsely low ionized calcium. CL Whole Blood 119(H) 98 - 107 mmol/L [facility] Gluc Whole Bld 141 65 - 199 mg/dL [facility] Comment:Diabetes: >=200 mg/d L plus symptoms. Lactate WB 2.4(H) 0.5 - 2.2 mmol/L [facility] FIO2 Art 50 % [facility] PF Ratio Art 130 [facility] Temp Art 34.8 Celsius [facility] Blood specimen (specimen) 04/06/2018 5:24 PM EDT 04/06/2018 5:24 PM EDT Lida Peter MD POINT OF CARE TEST O RDERAMARISOL Performing Organization Address [facility] Co de Phone Number [facility] [place] [address] * POCT Glucose (04/06/2018 5:10 PM EDT) Glucose, POC 147 65 - 199 mg/dL [facility] Comment: Supplemental ranges: <140 mg/dL before meals <180 mg/dL all other times of the day Blood specimen (specimen) 04/06/2018 5:10 PM EDT 04/06/2018 5:10 PM EDT Lida Peter MD POINT OF CARE TEST O RDERAMARISOL Performing Organization Address [facility] Co de Phone Number [facility] [place] [address] * (ABNORMAL) BLOOD GAS 2 ARTERIAL (04/06/2018 4:04 PM EDT) pH, Arterial 7.27(Criti constance) 7.35 - 7.45 [facility] Comment:Noted by instrument adjuster. PCO2, Arterial 34(L) 35 - 45 mmHg [facility] PO2, Arterial 152(H) 85 - 104 mmHg [facility] Bicarbonate, Arterial 15.2(L) 20.0 - 26.0 mmol/L [facility] Base Excess, Arterial -11.8(L) -3.0 - 3.0 mmol/L [facility] Hgb Blood Gas 8.1(L) 13.7 - 16.5 gm/dL [facility] Oxyhemoglobin, Arterial 97.7(H) 94.0 - 97.0 % [facility] Carboxyhemoglob in, Arterial 0.5 % [facility] Comment: Nonsmokers: 0.5-1.5% COHB Smokers: Variable, but usually less than 10% Toxic: 20-30% COHB Lethal: Greater than 60% COHB Methemoglobin, Arterial 0.3 <=1.5 % [facility] Na Whole Blood 140 135 - 145 mmol/L [facility] K Whole Blood 4.6 3.5 - 5.0 mmol/L [facility] Comment: Please note: Patients with WBC >100,000 may have falsely elevated Potassium levels. Contact the Clinical Chemistry Laboratory if there are any questions. ICa Whole Blood 1.01(L) 1.15 - 1.33 mmol/L [facility] Comment: Note: ??Total bilirubin higher than 20 mg/dL may lead to falsely low ionized calcium. CL Whole Blood 118(H) 98 - 107 mmol/L [facility] Gluc Whole Bld 137 65 - 199 mg/dL [facility] Comment:Diabetes: >=200 mg/d L plus symptoms. Lactate WB 3.1(H) 0.5 - 2.2 mmol/L [facility] Blood specimen (specimen) 04/06/2018 4:04 PM EDT 04/06/2018 4:04 PM EDT Lida Peter MD POINT OF CARE TEST O RDERABLES [facility] [place] [address] * Scan, Peripheral Blood (04/06/2018 3:53 PM EDT) Pathologist [facility] Plat estimate Decreased [facility] RBC Morphology Abnormal [facility] Ovalocytes 1-5 /HPF [facility] [place] Cells 1-5 /HPF [facility] Blood specimen (specimen) 04/06/2018 3:53 PM EDT 04/06/2018 4:05 PM EDT Narrative Resulting Agency Comment Spec In Lab Lida Peter MD HEMATOLOGY ORDERABLE S [facility] [address] * (ABNORMAL) Differential, Automated (04/06/2018 3:53 PM EDT) [facility] Neutrophil % 80.4 % [facility] Neutrophil Absolute 8.28(H) 1.70 - 6.10 x10(3)/mc L [facility] Lymph % 6.8 % [facility] Lymphocytes Abs 0.7(L) 0.9 - 3.2 x10(3)/mc L [facility] Monocyte % 11.9 % [facility] Monocyte Abs 1.2(H) 0.3 - 0.9 x10(3)/mc L [facility] Eos % 0.0 % [facility] Eosinophils Abs 0.0 0.0 - 0.4 x10(3)/mc L [facility] Basophil % 0.1 % [facility] Baso Absolute 0.0 0.0 - 0.1 x10(3)/mc L [facility] Immature Gran % 0.80 % [facility] Comment: Immature granulocytes(IG's)percentage and absolute count will include metamyelocytes, myelocytes, and promyelocytes. Blood smears from CBCs yielding IG's will be scanned manually for concordance. If this scan disagrees with the automated IG or if promyelocytes are noted, a manual differential will be performed. Immature Gran Absolute 0.08(H) 0.00 - 0.04 x10(3)/mc L [facility] Blood specimen (specimen) 04/06/2018 3:53 PM EDT 04/06/2018 4:05 PM EDT Narrative Resulting Agency Comment Spec In Lab Lida Peter MD HEMATOLOGY ORDERABLE S [facility] [place] [address] * (ABNORMAL) Hemogram (04/06/2018 3:53 PM EDT) White Blood Cell 10.3(H) 4.0 - 9.5 x10(3)/ L [facility] Red Blood Cell 2.53(L) 4.58 - 5.54 x10(6)/ L [facility] Hemoglobin 7.7(L) 13.7 - 16.5 gm/dL [facility] Comment: This result has been called to MISAEL GRANT by Evon Woodard on 04 06 2018 at 1633, and has been read back. Hematocrit 23.2(L) 40.5 - 48.5 % [facility] Comment: This result has been called to MISAEL GRANT by Evon Woodard on 04 06 2018 at 1633, and has been read back. Mean Cell Volume 91.7 82.9 - 93.1 fL [facility] Mean Cell Hemoglobin 30.4 27.5 - 32.1 pg [facility] Mean Cell Hemoglobin Concentration 33.2 32.0 - 35.7 gm/dL [facility] Platelet 96(L) 145 - 357 x10(3)/mc L [facility] RDW Standard Deviation 53.3(H) 36.0 - 45.0 fL [facility] RDW coefficient of variation 16.2(H) 11.4 - 13.8 % [facility] Mean Platelet Volume 9.0 7.6 - 12.9 fL [facility] NRBC% auto 0.0 % [facility] NRBC Absolute 0.000 0.000 - 0.000 x10(3)/mc L [facility] Blood specimen (specimen) 04/06/2018 3:53 PM EDT 04/06/2018 4:05 PM EDT Narrative Resulting Agency Comment Spec In Lab Lida Peter MD HEMATOLOGY ORDERABLE S Performing Organization Address [facility] Co de Phone Number [facility] [place] [address] * APTT (04/06/2018 3:53 PM EDT) Partial Thromboplastin Time 30 25 - 37 sec [facility] MD HEMATOLOGY ORDERABLE S Performing Organization Address [facility] Co de Phone Number [facility] [place] [address] * (ABNORMAL) Prothrombin Time (04/06/2018 3:53 PM EDT) Prothrombin Time 22.5(H) 9.4 - 12.5 sec [facility] Comment:Called by: luisa, Read back by: donn thomas, Date/Time:04/06/18 16:20. International Normalization Ratio 2.0 [facility] Lab Lida Peter MD HEMATOLOGY ORDERABLE S [facility] [place] [address] * (ABNORMAL) BLOOD GAS 2 ARTERIAL (04/06/2018 3:41 PM EDT) pH, Arterial 7.22(Criti constance) 7.35 - 7.45 [facility] Comment:Noted by instrument adjuster. PCO2, Arterial 39 35 - 45 mmHg [facility] PO2, Arterial 168(H) 85 - 104 mmHg [facility] Bicarbonate, Arterial 15.3(L) 20.0 - 26.0 mmol/L [facility] Base Excess, Arterial -12.4(L) -3.0 - 3.0 mmol/L [facility] Hgb Blood Gas 8.4(L) 13.7 - 16.5 gm/dL [facility] Oxyhemoglobin, Arterial 98.1(H) 94.0 - 97.0 % [facility] Carboxyhemoglob in, Arterial 0.2 % [facility] Comment: Nonsmokers: 0.5-1.5% COHB Smokers: Variable, but usually less than 10% Toxic: 20-30% COHB Lethal: Greater than 60% COHB Methemoglobin, Arterial 0.3 <=1.5 % [facility] Na Whole Blood 143 135 - 145 mmol/L [facility] K Whole Blood 4.6 3.5 - 5.0 mmol/L [facility] Comment: Please note: Patients with WBC >100,000 may have falsely elevated Potassium levels. Contact the Clinical Chemistry Laboratory if there are any questions. ICa Whole Blood 0.92(Criti constance) 1.15 - 1.33 mmol/L [facility] Comment: Noted by instrument adjuster. Note: ??Total bilirubin higher than 20 mg/dL may lead to falsely low ionized calcium. CL Whole Blood 119(H) 98 - 107 mmol/L [facility] Gluc Whole Bld 158 65 - 199 mg/dL [facility] Comment:Diabetes: >=200 mg/d L plus symptoms. Lactate WB 3.2(H) 0.5 - 2.2 mmol/L [facility] Blood specimen (specimen) 04/06/2018 3:41 PM EDT 04/06/2018 3:41 PM EDT Lida Peter MD POINT OF CARE TEST O RDERABLES Performing Organization Address City/State/[facility] Co de Phone Number [facility] [place] [address] * (ABNORMAL) BLOOD GAS 2 ARTERIAL (04/06/2018 3:13 PM EDT) pH, Arterial 7.18(Criti constance) 7.35 - 7.45 [facility] Comment:Noted by instrument adjuster. PCO2, Arterial 40 35 - 45 mmHg [facility] PO2, Arterial 228(H) 85 - 104 mmHg [facility] Bicarbonate, Arterial 14.8(L) 20.0 - 26.0 mmol/L [facility] Base Excess, Arterial -13.5(L) -3.0 - 3.0 mmol/L [facility] Hgb Blood Gas 9.4(L) 13.7 - 16.5 gm/dL [facility] Oxyhemoglobin, Arterial 98.3(H) 94.0 - 97.0 % [facility] Carboxyhemoglob in, Arterial 0.3 % [facility] Comment: Nonsmokers: 0.5-1.5% COHB Smokers: Variable, but usually less than 10% Toxic: 20-30% COHB Lethal: Greater than 60% COHB Methemoglobin, Arterial 0.3 <=1.5 % [facility] Na Whole Blood 141 135 - 145 mmol/L [facility] K Whole Blood 4.8 3.5 - 5.0 mmol/L [facility] Comment: Please note: Patients with WBC >100,000 may have falsely elevated Potassium levels. Contact the Clinical Chemistry Laboratory if there are any questions. ICa Whole Blood 1.12(L) 1.15 - 1.33 mmol/L [facility] Comment: Note: ??Total bilirubin higher than 20 mg/dL may lead to falsely low ionized calcium. CL Whole Blood 120(H) 98 - 107 mmol/L [facility] Gluc Whole Bld 125 65 - 199 mg/dL [facility] Comment:Diabetes: >=200 mg/d L plus symptoms. Lactate WB 2.8(H) 0.5 - 2.2 mmol/L [facility] Blood specimen (specimen) 04/06/2018 3:13 PM EDT 04/06/2018 3:13 PM EDT Lida Peter MD POINT OF CARE TEST O RDERABLES [facility] [place] [address] * (ABNORMAL) BLOOD GAS 2 ARTERIAL (04/06/2018 2:48 PM EDT) pH, Arterial 7.27(Criti constance) 7.35 - 7.45 [facility] Comment:Noted by instrument adjuster. PCO2, Arterial 36 35 - 45 mmHg [facility] PO2, Arterial 379(H) 85 - 104 mmHg [facility] Bicarbonate, Arterial 16.1(L) 20.0 - 26.0 mmol/L [facility] Base Excess, Arterial -10.8(L) -3.0 - 3.0 mmol/L [facility] Hgb Blood Gas 9.7(L) 13.7 - 16.5 gm/dL [facility] Oxyhemoglobin, Arterial 98.5(H) 94.0 - 97.0 % [facility] Carboxyhemoglob in, Arterial 0.3 % [facility] Comment: Nonsmokers: 0.5-1.5% COHB Smokers: Variable, but usually less than 10% Toxic: 20-30% COHB Lethal: Greater than 60% COHB Methemoglobin, Arterial 0.3 <=1.5 % [facility] Na Whole Blood 142 135 - 145 mmol/L [facility] K Whole Blood 5.4(H) 3.5 - 5.0 mmol/L [facility] Comment: Please note: Patients with WBC >100,000 may have falsely elevated Potassium levels. Contact the Clinical Chemistry Laboratory if there are any questions. ICa Whole Blood 1.10(L) 1.15 - 1.33 mmol/L [facility] Comment: Note: ??Total bilirubin higher than 20 mg/dL may lead to falsely low ionized calcium. CL Whole Blood 117(H) 98 - 107 mmol/L [facility] Gluc Whole Bld 185 65 - 199 mg/dL [facility] Comment:Diabetes: >=200 mg/d L plus symptoms. Lactate WB 1.9 0.5 - 2.2 mmol/L [facility] Blood specimen (specimen) 04/06/2018 2:48 PM EDT 04/06/2018 2:48 PM EDT Lida Peter MD POINT OF CARE TEST O RDERABLES [facility] [place] [address] * (ABNORMAL) BLOOD GAS 2 ARTERIAL (04/06/2018 2:46 PM EDT) pH, Arterial 7.27(Criti constance) 7.35 - 7.45 [facility] Comment:Noted by instrument adjuster. PCO2, Arterial 36 35 - 45 mmHg [facility] PO2, Arterial Not Perf 85 - 104 mmHg [facility] Bicarbonate, Arterial 16.2(L) 20.0 - 26.0 mmol/L [facility] Base Excess, Arterial -10.7(L) -3.0 - 3.0 mmol/L [facility] Hgb Blood Gas 9.3(L) 13.7 - 16.5 gm/dL [facility] Oxyhemoglobin, Arterial 98.9(H) 94.0 - 97.0 % [facility] Carboxyhemoglob in, Arterial 0.3 % [facility] Comment: Nonsmokers: 0.5-1.5% COHB Smokers: Variable, but usually less than 10% Toxic: 20-30% COHB Lethal: Greater than 60% COHB Methemoglobin, Arterial 0.3 <=1.5 % [facility] Na Whole Blood 143 135 - 145 mmol/L [facility] K Whole Blood 5.5(H) 3.5 - 5.0 mmol/L [facility] Comment: Please note: Patients with WBC >100,000 may have falsely elevated Potassium levels. Contact the Clinical Chemistry Laboratory if there are any questions. ICa Whole Blood 1.09(L) 1.15 - 1.33 mmol/L [facility] Comment: Note: ??Total bilirubin higher than 20 mg/dL may lead to falsely low ionized calcium. CL Whole Blood 118(H) 98 - 107 mmol/L [facility] Gluc Whole Bld 191 65 - 199 mg/dL [facility] Comment:Diabetes: >=200 mg/d L plus symptoms. Lactate WB 1.8 0.5 - 2.2 mmol/L [facility] Blood specimen (specimen) 04/06/2018 2:46 PM EDT 04/06/2018 2:46 PM EDT Lida Peter MD POINT OF CARE TEST O RDERABLES [facility] [place] [place] [address] * (ABNORMAL) BLOOD GAS 2 ARTERIAL (04/06/2018 2:16 PM EDT) pH, Arterial 7.29(Criti constance) 7.35 - 7.45 [facility] Comment:Noted by instrument adjuster. PCO2, Arterial 38 35 - 45 mmHg [facility] PO2, Arterial 423(H) 85 - 104 mmHg [facility] Bicarbonate, Arterial 17.9(L) 20.0 - 26.0 mmol/L [facility] Base Excess, Arterial -8.6(L) -3.0 - 3.0 mmol/L [facility] Hgb Blood Gas 9.7(L) 13.7 - 16.5 gm/dL [facility] Oxyhemoglobin, Arterial 98.7(H) 94.0 - 97.0 % [facility] Carboxyhemoglob in, Arterial 0.3 % [facility] Comment: Nonsmokers: 0.5-1.5% COHB Smokers: Variable, but usually less than 10% Toxic: 20-30% COHB Lethal: Greater than 60% COHB Methemoglobin, Arterial 0.3 <=1.5 % [facility] Na Whole Blood 137 135 - 145 mmol/L [facility] K Whole Blood 6.5(Critic al) 3.5 - 5.0 mmol/L [facility] Comment: Noted by instrument adjuster. Please note: Patients with WBC >100,000 may have falsely elevated Potassium levels. Contact the Clinical Chemistry Laboratory if there are any questions. ICa Whole Blood 1.06(L) 1.15 - 1.33 mmol/L [facility] Comment: Note: ??Total bilirubin higher than 20 mg/dL may lead to falsely low ionized calcium. CL Whole Blood 117(H) 98 - 107 mmol/L [facility] Gluc Whole Bld 261(H) 65 - 199 mg/dL [facility] Comment:Diabetes: >=200 mg/d L plus symptoms. Lactate WB 1.1 0.5 - 2.2 mmol/L [facility] Blood specimen (specimen) 04/06/2018 2:16 PM EDT 04/06/2018 2:16 PM EDT Lida Peter MD POINT OF CARE TEST O RDERABLES Performing Organization Address [facility] Co de Phone Number [facility] [place] [place] [address] * Anaerobic Culture (04/06/2018 2:15 PM EDT) Anaerobic Culture No anaerobic organisms isolated [facility] Fluid specimen (specimen) 04/06/2018 2:15 PM EDT 04/06/2018 2:34 PM EDT Comment:CULTURE LEFT ARM WOU ND Narrative Resulting Agency Comment Spec In Lab Lida Peter MD MICROBIOLOGY - GENER AL ORDERABLES Performing Organization Address [facility] Co de Phone Number [facility] [place] [address] * Body Fluid Culture, Aerobic (04/06/2018 2:15 PM EDT) Body Fluid Culture Few normal cutaneous shaina [facility] Gram Stain Few Neutrophils seen No microorganisms seen. [facility] Fluid specimen (specimen) 04/06/2018 2:15 PM EDT 04/06/2018 2:34 PM EDT Comment:CULTURE LEFT ARM WOU ND Narrative Resulting Agency Comment Spec In Lab Lida Peter MD MICROBIOLOGY - GENER AL ORDERABLES Performing Organization Address [facility] Co de Phone Number [facility] [place] [address] * (ABNORMAL) BLOOD GAS 2 ARTERIAL (04/06/2018 1:53 PM EDT) pH, Arterial 7.24(Criti constance) 7.35 - 7.45 [facility] Comment:Noted by instrument adjuster. PCO2, Arterial 38 35 - 45 mmHg [facility] PO2, Arterial 388(H) 85 - 104 mmHg [facility] Bicarbonate, Arterial 15.7(L) 20.0 - 26.0 mmol/L [facility] Base Excess, Arterial -11.8(L) -3.0 - 3.0 mmol/L [facility] Hgb Blood Gas 10.8(L) 13.7 - 16.5 gm/dL [facility] Oxyhemoglobin, Arterial 98.8(H) 94.0 - 97.0 % [facility] Carboxyhemoglob in, Arterial 0.3 % [facility] Comment: Nonsmokers: 0.5-1.5% COHB Smokers: Variable, but usually less than 10% Toxic: 20-30% COHB Lethal: Greater than 60% COHB Methemoglobin, Arterial 0.3 <=1.5 % [facility] Na Whole Blood 141 135 - 145 mmol/L [facility] K Whole Blood 6.7(Critic al) 3.5 - 5.0 mmol/L [facility] Comment: Noted by instrument adjuster. Please note: Patients with WBC >100,000 may have falsely elevated Potassium levels. Contact the Clinical Chemistry Laboratory if there are any questions. ICa Whole Blood 1.00(L) 1.15 - 1.33 mmol/L [facility] Comment: Note: ??Total bilirubin higher than 20 mg/dL may lead to falsely low ionized calcium. CL Whole Blood 117(H) 98 - 107 mmol/L [facility] Gluc Whole Bld 219(H) 65 - 199 mg/dL [facility] Comment:Diabetes: >=200 mg/d L plus symptoms. Lactate WB 1.2 0.5 - 2.2 mmol/L [facility] Blood specimen (specimen) 04/06/2018 1:53 PM EDT 04/06/2018 1:53 PM EDT Lida Peter MD POINT OF CARE TEST O RDERABLES [facility] [place] [address] * Request For 2nd Read CT Head [...] RBC, Urine 21(H) 0 - 3 /HPF [facility] WBC, Urine 8(H) 0 - 3 /HPF [facility] Bacteria, Urine Occasional (A) None /HPF [facility] Squamous Epithelial Cells Raw Data, Urine 1 <=4 /HPF [facility] Granular Casts, Urine 1(H) <=0 /LPF [facility] Urine specimen obtained by clean catch procedure (specimen) 04/06/2018 1:25 PM EDT 04/06/2018 1:30 PM EDT Narrative Resulting Agency Comment Spec In Lab Fabian Burkett MD URINE ORDERABLES [facility] [place] [address] * Rapid Drug Screen w/o Confirmation, Urine (04/06/2018 1:25 PM EDT) Barbiturates Screen, Urine None Detected None Detected [facility] Comment: The barbiturate screen detects barbiturates [...] Benzodiazepines Screen, Urine None Detected None Detected [facility] Comment: The benzodiazepines screen detects benzodiazepines [...] Cocaine Screen, Urine None Detected None Detected [facility] Comment: The cocaine metabolites screen detects benzoylecgonine (Cocaine Metabolite) at concentrations >150 ng/mL. A ? Presumptive Positive? result indicates that the screening result was positive but has not yet been confirmed by a highly-specific method. As with any screen, occasional false positive results from cross-reacting substances may occur. Not for Medico-Legal Purposes. Methadone Metabolites Screen, Urine None Detected None Detected [facility] Comment: The methadone metabolite screen detects EDDP (major methadone metabolite) at concentrations >100 ng/mL. A ? Presumptive Positive? result indicates that the screening result was positive but has not yet been confirmed by a highly-specific method. As with any screen, occasional false positive results from cross-reacting substances may occur. Not for Medico-Legal Purposes. Opiate Screen, Urine None Detected None Detected [facility] Comment: The opiates screen detects opiates [...] Cannabinoid Screen, Urine None Detected None Detected [facility] Comment: The marijuana metabolites screen detects the THC metabolite (94-fsc-1-carboxy-delta 9-THC) at concentrations >20 ng/mL. A ? Presumptive Positive? result indicates that the screening result was positive but has not yet been confirmed by a highly-specific method. As with any screen, occasional false positive results from cross-reacting substances may occur. Not for Medico-Legal Purposes. Oxycodone Screen, Urine None Detected None Detected [facility] Comment: The oxycodone screen detects oxycodone and oxymorphone at concentrations >100 ng/mL. A ? Presumptive Positive? result indicates that the screening result was positive but has not yet been confirmed by a highly-specific method. As with any screen, occasional false positive results from cross-reacting substances may occur. Not for Medico-Legal Purposes. Buprenorphine Screen, Urine None Detected None Detected [facility] Comment: The buprenorphine screen detects buprenorphine at concentrations >5 ng/mL. A ? Presumptive Positive? result indicates that the screening result was positive but has not yet been confirmed by a highly-specific method. As with any screen, occasional false positive results from cross-reacting substances may occur. Not for Medico-Legal Purposes. Fentanyl Screen, Urine None Detected None Detected [facility] Comment: The fentanyl screen detects fentanyl at concentrations >2 ng/mL. A ? Presumptive Positive? result indicates that the screening result was positive but has not yet been confirmed by a highly-specific method. As with any screen, occasional false positive results from cross-reacting substances may occur. Not for Medico-Legal Purposes. Tricyclics Screen, Urine None Detected None Detected [facility] Comment: The tricyclics screen detects tricyclic [...] Ethanol Screen, Urine None Detected None Detected [facility] Comment:This urine ethanol a ssay detects ethanol at concentrations >/= 100 mg/L. Amphetamines Screen, Urine None Detected None Detected [facility] Comment: The amphetamine screen detects d-amphetamine and d-methamphetamine at concentrations >300 ng/mL. A ? Presumptive Positive? result indicates that the screening result was positive but has not yet been confirmed by a highly-specific method. As with any screen, occasional false positive results from cross-reacting substances may occur. Not for Medico-Legal Purposes. Adulterants Screen, Urine None Detected None Detected [facility] Comment: No adulteration or dilution of this urine sample was detected. All urine samples submitted for urine drugs of abuse analysis are tested for creatinine concentration, pH, and for the presence of oxidants, nitrites, and chromate. Urine specimen (specimen) 04/06/2018 1:25 PM EDT 04/06/2018 1:30 PM EDT Narrative Resulting Agency Comment Spec In Lab Fabian Burkett MD CHEMISTRY ORDERABLES [facility] [address] * (ABNORMAL) Urinalysis with reflex Culture (04/06/2018 1:25 PM EDT) Glucose, Urine Dipstick 50(A) Negative mg/dL [facility] Protein, Urine Dipstick >=500(A) Negative mg/dL [facility] Bilirubin, Urine Dipstick Negative Negative mg/dL [facility] Comment: Clinical correlation required for positive Urine Bilirubin results as false positive may occur with some drugs and drug related products. If a false positive is suspected a serum total bilirubin should be considered if clinically indicated. Urobilinogen, Urine Dipstick Normal Normal mg/dL [facility] pH, Urn (dipstick) 6.0 5.0 - 8.0 [facility] Blood, Urine Dipstick Small(A) Negative mg/dL [facility] Ketone, Urine Dipstick Negative Negative mg/dL [facility] Nitrite, Urine Dipstick Negative Negative [facility] Leukocytes, Urine Dipstick Negative Negative [facility] Appearance, Urine Dipstick Hazy(A) Clear [facility] Specific [place] Urine Automated 1.023 1.002 - 1.030 [facility] Color, Urine Dipstick Yellow Yellow [facility] Reflex to Culture No [facility] Urine specimen obtained by clean catch procedure (specimen) 04/06/2018 1:25 PM EDT 04/06/2018 1:30 PM EDT Narrative Resulting Agency Comment Spec In Lab Erwin Hernandez MD URINE ORDERABLES [facility] [place] [address] * Rapid Drug Screen, Urine (RAUL Request) (04/06/2018 1:25 PM EDT) RAUL Conf Requested No [facility] Comment: Collection date/time has been modified to: 13:25:00. ??Previous collection date/time: 13:03:00. Corrected from No [NA] on 04/06/18 01:32 by Crystal Mueller Requested See Comment [facility] Comment: Refer to Rapid Drug Screen w/o Confirmation, Urine for results. Collection date/time has been modified to: 13:25:00. ??Previous collection date/time: 13:03:00. Corrected from See Comment [NA] on 04/06/18 01:32 by Crystal Mueller Urine specimen (specimen) 04/06/2018 1:25 PM EDT 04/06/2018 1:30 PM EDT Narrative Resulting Agency Comment Spec In Lab Erwin Hernandez MD URINE ORDERABLES Performing Organization Address City/[facility]/ZIP Co de Phone Number [facility] [place] [address] * CK (04/06/2018 1:15 PM EDT) Creatine Kinase 168 0 - 200 unit/L [facility] Blood specimen (specimen) Venous Draw / Unknown 04/06/2018 1:15 PM EDT 04/06/2018 2:22 PM EDT Narrative Resulting Agency Comment Spec In Lab Kavon Rob MD CHEMISTRY ORDERABLES Performing Organization Address City/[facility]/ZIP Co de Phone Number [facility] [place] [address] * Scan, Peripheral Blood (04/06/2018 1:15 PM EDT) Plat estimate Normal [facility] RBC Morphology Abnormal [facility] Ovalocytes 1-5 /HPF [facility] [place] Cells 1-5 /HPF [facility] Blood specimen (specimen) 04/06/2018 1:15 PM EDT 04/06/2018 1:24 PM EDT Narrative Resulting Agency Comment Spec In Lab Fabian Burkett MD HEMATOLOGY ORDERABLE S [facility] [place] [address] * ABORH Recheck Status (04/06/2018 1:15 PM EDT) ABORH Type Recheck Completed [facility] Blood specimen (specimen) 04/06/2018 1:15 PM EDT 04/06/2018 1:20 PM EDT Narrative Resulting Agency Comment Spec In Lab Fabian Burkett MD BLOOD BANK LAB ORDER KELLY Performing Organization Address City/[facility]/ZIP Co de Phone Number [facility] [place] [address] * Blue Tube HOLD (04/06/2018 1:15 PM EDT) Blue Hold Sample in lab. [facility] Blood specimen (specimen) Venous Draw / Unknown 04/06/2018 1:15 PM EDT 04/06/2018 1:26 PM EDT Fabian Burkett MD HEMATOLOGY ORDERABLE S Performing Organization Address City/[facility]/ZIP Co de Phone Number [facility] [place] [address] * Gold Tube HOLD (04/06/2018 1:15 PM EDT) Gold Hold Sample in lab. [facility] Blood specimen (specimen) Venous Draw / Unknown 04/06/2018 1:15 PM EDT 04/06/2018 1:25 PM EDT Fabian Burkett MD CHEMISTRY ORDERABLES [facility] [place] [address] * Blue Tube HOLD (04/06/2018 1:15 PM EDT) Blue Hold Sample in lab. [facility] Blood specimen (specimen) Venous Draw / Unknown 04/06/2018 1:15 PM EDT 04/06/2018 1:26 PM EDT Fabian Burkett MD HEMATOLOGY ORDERABLE S [facility] [place] [address] * (ABNORMAL) Differential, Automated (04/06/2018 1:15 PM EDT) Neutrophil % 78.7 % [facility] Neutrophil Absolute 12.22(H) 1.70 - 6.10 x10(3)/ L [facility] Lymph % 10.3 % [facility] Lymphocytes Abs 1.6 0.9 - 3.2 x10(3)/[facility] Monocyte % 9.8 % [facility] Monocyte Abs 1.5(H) 0.3 - 0.9 x10(3)/ L [facility] Eos % 0.1 % [facility] Eosinophils Abs 0.0 0.0 - 0.4 x10(3)/[facility] Basophil % 0.2 % [facility] Baso Absolute 0.0 0.0 - 0.1 x10(3)/[facility] Immature Gran % 0.90 % [facility] Comment: Immature granulocytes(IG's)percentage and absolute count will include metamyelocytes, myelocytes, and promyelocytes. Blood smears from CBCs yielding IG's will be scanned manually for concordance. If this scan disagrees with the automated IG or if promyelocytes are noted, a manual differential will be performed. Immature Gran Absolute 0.14(H) 0.00 - 0.04 x10(3)/mc L [facility] Blood specimen (specimen) 04/06/2018 1:15 PM EDT 04/06/2018 1:24 PM EDT Narrative Resulting Agency Comment Spec In Lab Fabian Burkett MD HEMATOLOGY ORDERABLE S [facility] [place] [address] * (ABNORMAL) Hemogram (04/06/2018 1:15 PM EDT) White Blood Cell 15.5(H) 4.0 - 9.5 x10(3)/mc L [facility] Red Blood Cell 3.80(L) 4.58 - 5.54 x10(6)/mc L [facility] Hemoglobin 11.5(L) 13.7 - 16.5 gm/dL [facility] Hematocrit 35.2(L) 40.5 - 48.5 % [facility] Mean Cell Volume 92.6 82.9 - 93.1 fL [facility] Mean Cell Hemoglobin 30.3 27.5 - 32.1 pg [facility] Mean Cell Hemoglobin Concentration 32.7 32.0 - 35.7 gm/dL [facility] Platelet 145 145 - 357 x10(3)/mc L [facility] RDW Standard Deviation 53.2(H) 36.0 - 45.0 [facility] RDW coefficient of variation 15.9(H) 11.4 - 13.8 % [facility] Mean Platelet Volume 9.0 7.6 - 12.9 [facility] NRBC% auto 0.0 % [facility] NRBC Absolute 0.000 0.000 - 0.000 x10(3)/mc L [facility] Blood specimen (specimen) 04/06/2018 1:15 PM EDT 04/06/2018 1:24 PM EDT Narrative Resulting Agency Comment Spec In Lab Fabian Burkett MD HEMATOLOGY ORDERABLE S [facility] [place] [address] * Antibody screen (04/06/2018 1:15 PM EDT) Ab Screen Interp Negative [facility] Expires at [id number] on: 04/09/2018 [facility] Blood specimen (specimen) 04/06/2018 1:15 PM EDT 04/06/2018 1:20 PM EDT Narrative Resulting Agency Comment Spec In Lab Fabian Burkett MD BLOOD BANK LAB ORDER KELLY [facility] [place] [address] * ABO/Rh Typing (04/06/2018 1:15 PM EDT) ABORH Type A Pos [facility] Comment: 04/06/2018 15:10 ??CHASDM ABO/Rh determined (Acc# [id number]) to be A pos. Blood specimen (specimen) 04/06/2018 1:15 PM EDT 04/06/2018 1:20 PM EDT Narrative Resulting Agency Comment Spec In Lab Fabian Burkett MD BLOOD BANK LAB ORDER KELLY Performing Organization Address City/[facility]/ZIP Co de Phone Number [facility] [place] [place] [address] * Fibrinogen (04/06/2018 1:15 PM EDT) [facility] Fibrinogen 255 200 - 393 mg/dL [facility] Comment: A fibrinogen level >100 mg/dL is adequate for hemostasis in most patients without underlying bleeding disorders. Blood specimen (specimen) 04/06/2018 1:15 PM EDT 04/06/2018 1:24 PM EDT Narrative Resulting Agency Comment Spec In Lab Erwin Hernandez MD HEMATOLOGY ORDERAB LES [facility] [place] [address] * Ethanol Level (04/06/2018 1:15 PM EDT) Ethanol <100 <=99 mg/L [facility] Comment: Greater than 800 mg/L (0.08%) should be considered intoxicated. 3400 to 4500 mg/L (0.34 - 0.45%) is considered severe intoxication. Greater than 5500 mg/L (0.55%) is usually fatal. Blood specimen (specimen) 04/06/2018 1:15 PM EDT 04/06/2018 1:24 PM EDT Narrative Resulting Agency Comment Spec In Lab Erwin Hernandez MD CHEMISTRY ORDERABL ES Performing Organization Address [facility] Co de Phone Number [facility] [place] [address] * APTT (04/06/2018 1:15 PM EDT) Partial Thromboplastin Time 31 25 - 37 sec [facility] MD HEMATOLOGY ORDERAB LES Performing Organization Address [facility]/ZIP Co de Phone Number [facility] [place] [address] * (ABNORMAL) Prothrombin Time (04/06/2018 1:15 PM EDT) Prothrombin Time 29.1(H) 9.4 - 12.5 sec [facility] International Normalization Ratio 2.6 [facility] Comment: An [...] Lab Erwin Hernandez MD HEMATOLOGY ORDERAB LES [facility] [place] [address] * (ABNORMAL) Basic Metabolic Panel (non-fasting) (04/06/2018 1:15 PM EDT) Glucose 219(H) 65 - 199 mg/dL [facility] Comment:Diabetes: >=200 mg/d L plus symptoms Blood Urea Nitrogen 39(H) 10 - 20 mg/dL [facility] Creatinine 2.01(H) 0.80 - 1.50 mg/dL [facility] Sodium 140 135 - 145 mmol/L [facility] Potassium 5.2(H) 3.5 - 5.0 mmol/L [facility] Comment: Please note: ??Patients with WBC >100,000 may have falsely elevated Potassium levels. ??For accurate Potassium quantification in these patients send serum separator tube (gold top) for subsequent determinations. ??Contact the Clinical Chemistry Laboratory if there are any questions. Chloride 116(H) 98 - 107 mmol/L [facility] Carbon Dioxide 15(L) 22 - 31 mmol/L [facility] Anion Gap 9 5 - 15 mmol/L [facility] Calcium 4.9(Criti constance) 8.5 - 10.5 mg/dL [facility] Comment:Called by: lorelei, Read back by: misael luong_, Date/Time:04/06/18 14:04. Est Glomerular Filtration Rate 36(L) >=60 mL/min/1. 73 m?? [facility] Comment: The eGFR was calculated using the CKD-EPI equation. As with all creatinine based estimates of kidney function, eGFR values calculated with the CKD-EPI equation are not accurate in patients with acute kidney failure, extremes of body mass or the acutely ill. http://[employer]/[facility] IDABELnkf eGFR 42(L) >=60 mL/min/1. 73 m?? [facility] Comment: The eGFR was calculated using the CKD-EPI equation. As with all creatinine based estimates of kidney function, eGFR values calculated with the CKD-EPI equation are not accurate in patients with acute kidney failure, extremes of body mass or the acutely ill. http://[employer]/[facility]ABELnkf Blood specimen (specimen) 04/06/2018 1:15 PM EDT 04/06/2018 1:24 PM EDT Narrative Resulting Agency Comment Spec In Lab Erwin Hernandez MD CHEMISTRY ORDERABL ES Performing Organization Address City/State/[facility] Co de Phone Number [facility] [place] [address] * XR Chest AP and Pelvis AP [...] pH, Arterial 7.14(Criti constance) 7.35 - 7.45 [facility] Comment:Noted by instrument adjuster. PCO2, Arterial 51(H) 35 - 45 mmHg [facility] PO2, Arterial 38(Critica l) 85 - 104 mmHg [facility] Comment:Noted by instrument adjuster. Bicarbonate, Arterial 16.7(L) 20.0 - 26.0 mmol/L [facility] Base Excess, Arterial -12.4(L) -3.0 - 3.0 mmol/L [facility] Hgb Blood Gas 12.3(L) 13.7 - 16.5 gm/dL [facility] Oxyhemoglobin, Arterial 69.1(L) 94.0 - 97.0 % [facility] Carboxyhemoglob in, Arterial 0.3 % [facility] Comment: Nonsmokers: 0.5-1.5% COHB Smokers: Variable, but usually less than 10% Toxic: 20-30% COHB Lethal: Greater than 60% COHB Methemoglobin, Arterial 0.4 <=1.5 % [facility] Na Whole Blood 137 135 - 145 mmol/L [facility] K Whole Blood 6.3(Critic al) 3.5 - 5.0 mmol/L [facility] Comment: Noted by instrument adjuster. Please note: Patients with WBC >100,000 may have falsely elevated Potassium levels. Contact the Clinical Chemistry Laboratory if there are any questions. ICa Whole Blood 1.01(L) 1.15 - 1.33 mmol/L [facility] Comment: Note: ??Total bilirubin higher than 20 mg/dL may lead to falsely low ionized calcium. CL Whole Blood 112(H) 98 - 107 mmol/L [facility] Gluc Whole Bld 258(H) 65 - 199 mg/dL [facility] Comment:Diabetes: >=200 mg/d L plus symptoms. Lactate WB 2.0 0.5 - 2.2 mmol/L [facility] Blood specimen (specimen) 04/06/2018 1:14 PM EDT 04/06/2018 1:14 PM EDT Erwin Hernandez MD POINT OF CARE TEST ORDERABLES [facility] [place] [place] [address] * Prepare RBC (04/06/2018 1:05 PM EDT) Dispensed? Yes [facility] Blood specimen (specimen) 04/06/2018 1:05 PM EDT 04/06/2018 1:03 PM EDT Erwin Hernandez MD BLOOD BANK PRODUCT ORDERABLES Performing Organization Address [facility] Co de Phone Number [facility] [place] [address] * Film Library- Storage Only CT Chest Abdomen Pelvis (04/06/2018 12:05 AM EDT) Narrative [facility] - 04/06/2018 2:07 PM EDT This exam is for storage only and is auto-finalizing. Fabian Burkett MD [facility] FILM LIBRARY ORD ERABLES Performing Organization Address [facility] de Phone Number [place], [place] * SCAN DOC: IMPLANTABLE DEVICES (04/06/2018 12:00 AM EDT) Narrative 04/06/2018 12:00 AM EDT Ordered by an unspecified provider. Scanning Provider MEDIA MGR SCAN EXT O RDR/RSLT * Film Library- Storage Only CT Head And Spine (04/06/2018 12:00 AM EDT) Narrative [facility] - 04/06/2018 1:32 PM EDT This exam is for storage only and is auto-finalizing. Fabian Burkett MD [facility] FILM LIBRARY ORD ERABLES Performing Organization Address [facility] de Phone Number [place], [place] * SCAN DOC: LAB (04/06/2018 12:00 AM EDT) Narrative 04/06/2018 12:00 AM EDT Ordered by an unspecified provider. Scanning Provider MEDIA MGR SCAN EXT O RDR/RSLT * SCAN DOC: TIRE FABRIC IMPREGNATING RANGE TENDER (04/06/2018 12:00 AM EDT) Anatomical Region Laterality [...] 0522, Until Wed05/04/18 at 1520, Constipation, Routine cellulose (fibrillar), oxidized (SURGICEL) 1 x 2 pad ONCE PRN, Starting on Wed04/06/18 at 1612, Until Wed04/06/18 at 2055, Intra-Operative (Intra-Procedure), Routine Given 04/06/2018 4:12 PM EDT 3 each 19- Surgical Site ciprofloxacin (CIPRO) tablet 500 mg [...] Given 05/02/2018 8:42 AM EDT 120 mg gelatin adsorbable (GELFOAM) sponge ONCE PRN, Starting on Wed04/06/18 at 1400, Until Wed04/06/18 at 2055, Intra-Operative (Intra-Procedure) Given 04/06/2018 2:00 PM EDT 3 each 19- Surgical Site heparin (porcine) injection ONCE PRN, Starting on Wed04/06/18 at 1358, Until Wed04/06/18 at 2055, Intra-Operative (Intra-Procedure), Routine Given 04/06/2018 1:58 PM EDT 2,500 Units 19- Surgical Site heparin (Porcine) subcutaneous injection 5,000 Units 5,000 [...] Given 05/02/2018 8:43 AM EDT 1.5 mg thrombin (Bovine) (THROMBINAR) kit ONCE PRN, Starting on Wed04/06/18 at 1400, Until Wed04/06/18 at 2055, Intra-Operative (Intra-Procedure) Given 04/06/2018 2:00 PM EDT 20,000 Units 19- Surgical Site vancomycin 500 mg vial attach to sodium [...] Naz Robbins RN)1956 (Given - Provider: Torri Angelo, SAVANNA) 06 (Given - Provider: Torri Angelo RN)184 (Given - Provider: Domi Rodriguez, SAVANNA) 0604 (Given - Provider: Margarita Blevins, SAVANNA) dilTIAZem (DILTIAZEM CD) ER capsule 120 mg 120 mg, Oral, DAILY, First dose on Wed04/12/18 at 1745, Until Discontinued, DO NOT CRUSH OR OPEN, Routine 0842 (Given - Provider: Torri Adame RN) 0900 (Given - Provider: Domi Rodriguez, SAVANNA) 09 (Given - Provider: Danny Quispe, SAVANNA) heparin (Porcine) subcutaneous injection 5,000 Units 5,000 Units, Subcutaneous, EVERY 12 HOURS SCHEDULED (2 times per day), First dose on Wed04/21/18 at 0900, Until Discontinued, Routine 0842 (Given - Provider: Torri Adame RN)210 (Given - Provider: Torri Angelo RN) 09 (Given - Provider: Domi Rodriguez, SAVANNA)2100 (Given - Provider: Margarita Blevins, SAVANNA) 0929 (Given - Provider: Danny Quispe, SAVANNA) hydrALAZINE (APRESOLINE) tablet 50 mg 50 mg, Oral, 3 TIMES DAILY, First dose (after last modification) on Wed04/21/18 at 0900, Until Discontinued, Take with Food, Routine 09 (Given - Provider: Lalitha Mack, SAVANNA)1434 (Given - Provider: Lalitha Mack, SAVANNA)2058 (Given - Provider: Torri Angelo RN) 0900 (Given - Provider: Domi Rodriguez, SAVANNA)1455 (Given - Provider: Domi Rodriguez, SAVANNA)203 (Given - Provider: Margarita M Blevins, RN) 0932 (Given - Provider: Danny Quispe RN) levETIRAcetam (KEPPRA) tablet 250 mg 250 mg, [...] Provider: Torri Angelo RN)1454 (Given - Provider: Dmoi Rodriguez, SAVANNA)2110 (Given - Provider: Margarita Blevins, SAVANNA) 0605 (Given - Provider: Margarita Blevins RN) metroNIDAZOLE (FLAGYL) tablet 500 mg 500 mg, Oral, 2 TIMES DAILY, First dose on Wed04/26/18 at 0900, Until Discontinued, Routine, Indication for (Active or Suspected): Anaerobic infection-Skin/Skin Structure 0841 (Given - Provider: Torri Adame RN)2100 (Given - Provider: Torri Angelo RN) 858 (Given - Provider: Domi Rodriguez, RN)2036 (Given [...] Routine 06 (Given - Provider: Naz Robbins RN)1956 [...] now., Routine 0519 (Given - Provider: Naz Robbins RN) pantoprazole (PROTONIX) tablet 20 mg 20 mg, Oral, 2 TIMES DAILY, First dose on Wed04/07/18 at 0900, Until Discontinued, DO NOT CRUSH OR OPEN 0842 (Given - Provider: Torri Adame RN)2101 (Given - Provider: Torri Angelo RN) 901 (Given - Provider: Domi Rodriguez, SAVANNA)2036 (Given - Provider: Margarita Blevins RN) 09 (Given - Provider: Danny Quispe, RN) polyethylene glycol (MIRALAX) packet 17 g 17 g, Oral, DAILY, First dose on Wed04/19/18 at 0900, Until Discontinued, Routine 0907 (Given - Provider: Lalitha Mack RN) 09 (Given - Provider: Domi Rodriguez, SAVANNA) 920 (Given - Provider: Danny Quispe, RN) senna-docusate (PERICOLACE) 8.6-50 mg per tablet 2 tablet 2 tablet, Oral, 2 TIMES DAILY, First dose on Wed04/19/18 at 0900, Until Discontinued, Routine 899 (Not Given - Provider: Lalitha Mack RN - Reason: Order parameters not met - Comment: +BM 05/01 - soft)2100 (Given - Provider: Torri Angelo, SAVANNA) 900 (Given - Provider: Domi Rodriguez, SAVANNA)2037 (Given - Provider: Margarita Blevins RN) 09 (Given - Provider: Danny Quispe RN) sodium bicarbonate tablet 650 mg 650 mg, Oral, 3 TIMES DAILY, First dose on Wed04/12/18 at 1745, Until Discontinued, Routine 09 (Given - Provider: Lalitha Mack RN)1435 (Given - Provider: Lalitha Mack RN)2101 (Given - Provider: Torri Angelo, SAVANNA) 0859 (Given - Provider: Domi Rodriguez, SAVANNA)1455 (Given - Provider: Domi Rodriguez, SAVANNA)2036 (Given - Provider: Margarita Blevins RN) 09 [...] Routine 0843 (Given - Provider: Torri Adame, SAVANNA) 0900 (Given - Provider: Domi Rodriguez, RN) [...] Margarita Blevins, SAVANNA)1953 (Stopped - Provider: Margarita Blevins RN) Vancomycin [...] Routine documented in this encounter Care Teams Telecommunications Project Manager Relationship Specialty Start Date End Date Carroll Garcia DO [address] [place] [address] PCP - General 09/23/11 10/20/22 documented as of this encounter
--- OUTSIDE RECORDS SUMMARY | 2024-04-22 11:08 | XMS_ITS | Encounter Summary ---
Author Organization [facility] Address [facility] [place] [address] Care Team Providers Care Night Manager Name Role Phone AlfredoCarroll allison Primary Care Provider [phone] Encounter Details Date Type Department Care Team (Latest Contact Info) Description 08/18/2017 8:45 PM EST - 08/18/2017 11:59 PM [facility] Hospital [place] [address] Discharge Disposition: Home Social History Tobacco Use [...] mouth 2 times daily. 0 08/17/2017 10/20/2017 pantoprazole (PROTONIX) 20 mg Tablet, Delayed Release [...] Date/Time Associated Diagnosis Comments TACROLIMUS LEVEL Routine 08/18/2017 12:3 0 PM EST documented in this encounter Results * Tacrolimus level (08/18/2017 12:30 PM EST) Tacrolimus 4.7 ng/mL [facility] Comment: Trough therapeutic: ??5-15 ng/mL Performed by ultra-performance liquid chromatography tandem mass spectrometry (UPLCMS/MS). This test was developed and its performance characteristics determined by [facility]. It has not been cleared or approved by the FDA. The laboratory is regulated under CLIA as qualified to perform high-complexity testing. This test is used for clinical purposes. It should not be regarded as investigational or for research. Blood specimen (specimen) Venous Draw / Unknown 08/18/2017 12:30 PM EST 08/20/2017 7:32 AM EST Narrative Resulting Agency Comment Spec In Lab Anup Hawkins MD CHEMISTRY ORDERAB LES [facility] [place] [address] documented in this encounter Visit Diagnoses Not on filedocumented in this encounter Care Teams Night Manager Relationship Specialty Start Date End Date Carroll Fuentes DO [address] [place] [address] PCP - General 09/23/11 10/20/22 documented as of this encounter
--- OUTSIDE RECORDS SUMMARY | 2024-04-22 11:08 | XMS_ITS | Encounter Summary ---
Author Organization [facility] Address [facility] [place] [address] Care Team Providers Care Nutritionists Name Role Phone AlfredoCarroll allison Primary Care Provider Reason for Visit * Reason Onset Date Comments Medication Refill 08/17/2017 Encounter Details Date Type Department Care Team (Late st Contact Info) Description 08/17/2017 Refill [place] [id number] Crystal Brown CMA Social History Tobacco Use [...] Telephone Encounter - Crystal Brown CMA - 08/17/2017 4:17 PM EST Patient left message on refill request line for pantoprazole 40 mg to be sent to [facility] in [facility]. Call with questions [phone]. Office note from 06/28/17 states S/p Upper GI Bleed: -Hgb trending up --> was 9.1 this AM -patient remains on BID PPI lower dose to 20 mg bid from 40 mg bid documented in this encounter Plan of Treatment Not on file documented as of this encounter Visit Diagnoses Not on filedocumented in this encounter Care Teams Nutritionists Relationship Specialty Start Date End Date Carroll Fuentes DO [address] [place] [address] [address] [facility] [address] [place] [address] PCP - General 09/23/11 10/20/22 documented as of this encounter
--- OUTSIDE RECORDS SUMMARY | 2024-04-22 11:09 | XMS_ITS | Encounter Summary ---
Author Organization [facility] Address [facility] [place] [address] Care Team Providers Care Lead Ios Developer Name Role Phone AlfredoCarroll allison Primary Care Provider [phone] Reason for Referral * Diagnostic Test (Routine) - Closed Specialty Diagnoses / Procedures Referred By Shashi ko Referred To Contact Radiology Diagnoses Renal cell carcinoma, unspecified laterality Procedures CT Chest & Abdomen wo Contrast Jax Mills MD [facility] [place] [address] [facility] [place] [address] Referral ID Status Reason Start Date Expiration Date V isits Requested Visits Authorized [id number] Closed Specialty Service Requested 09/17/2017 12/16/2017 1 1 Reason for Visit * Reason Comments Follow Up Surgery Encounter Details Date Type Department Care Team (Late st Contact Info) Description 06/23/2017 1:20 PM EST [place] [address] Jax Mills MD [facility] [place] [address] Renal cell carcinoma, unspecified laterality Social History [...] Sign Reading Time Taken Comments Blood Pressure 130/90 06/23/2017 1:28 PM EST Pulse 62 06/23/2017 1:28 PM EST Temperature 36.3 ??C (97.4 ??F) 06/23/2017 1:28 PM ES T Respiratory Rate - - Oxygen Saturation 98% 06/23/2017 1:28 PM EST Inhaled Oxygen Concentration - - Weight - - Height - - Body Mass Index - - documented in this encounter Progress Notes * Jax Mills MD - 06/23/2017 1:20 PM EST UROLOGY FOLLOW UP Mr Ram has done well since surgery (lap radical left nephrectomy). He denies any fever, chills, nausea or vomiting. 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 Past Medical History: Diagnosis Date ??? BP [...] performed by Miguel Angel Moreno MD at [facility] OR ??? PRO EXC PAROTD, TOTAL, UNILAT RAD NECK Left 02/05/2016 @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, TOTAL, WITH UNILATERAL RADICAL NECK DISSECTION performed by Miguel Angel Moreno MD at [facility] OR ??? PRO EXC SKIN MALIG 3.1-4CM FACE, FACIAL Left 02/05/2016 EXC MALIGNANT LESION, 3.1 TO 4.0CM, FACE performed by Miguel Angel Moreno MD at [facility] OR ? ? PRO EXC SKIN MALIG >4CM TRUNK, ARM, LEG 04/19/2012 EXC MALIGNANT LESION, MICHAEL > 4.0CM, TRUNK performed by SABRINA SANCHEZ at [facility] OR ??? PRO LAP, RADICAL NEPHRECTOMY Left 05/31/2017 @LAPAROSCOPY, RADICAL NEPHRECTOMY (WRVU 25.06) performed by Jax Mills MD at [facility] OR ??? PRO REPAIR INTERMEDIATE S/A/T/E 2.6-7.5 CM 04/19/2012 REPAIR INTERMEDIATE WOUND, (NO HANDS OR FEET) 2.6 TO 7.5CM, UPPER EXTREMITY performed by SABRINA SANCHEZ at [facility] OR ? ? PRO SPLIT GRFT, HEAD, FAC, HAND, FEET <100SQCM N/A 02/20/2016 SPLIT THICKNESS SKIN SPLIT GRAFT,100SQ CM OR LESS, NECK performed by Miguel Angel Moreno MD at [facility] OR ??? PRO UPPER GI ENDOSCOPY, BIOPSY N/A 05/13/2017 [facility] by Aditya Barrera MD at [facility] ENDOSCOPY ??? PRO VASCULAR SURGERY PROCEDURE UNLIST Left 11/20/2015 LIGATION\REPAIR AV FISTULA performed by Camilo Ireland MD at [facility] OR ??? PRO VASCULAR SURGERY PROCEDURE UNLIST Left 11/20/2015 EXCISION VEIN FROM HAND performed by Camilo Ireland MD at [facility] OR ??? US RENAL TRANSPLANT BIOPSY 12/31/2010 Social History Substance Use Topics ??? Smoking status: Former Smoker Packs/day: 0.25 Years: 1.50 Types: Cigarettes Quit date: 12/03/2000 ??? Smokeless tobacco: Former User Quit date: 04/14/2001 ??? Alcohol use No Family History Problem Relation Age of Onset ??? Pancreatitis Father ROS: negative for fever, chills, nausea, vomiting, diarrhea, constipation, hematuria, dysuria, CP, SOB Most Recent Vitals: 06/23/17 1328 BP: 130/90 Pulse: 62 Temp: 36.3 ??C (97.4 ??F) SpO2: 98% PainSc: 0 - No pain Alert, oriented, nad Soft, nontender abdomen Incision CDI. No hernias Extremities well perfused ? Surgical [...] Carlos Grubbs Verified: ??06/08/2017 ?Pathologist Performed at: ??-[facility] Dept. of Pathology, [place], [place] DISCUSSION Some morphologic features including oncocytic [...] papillary RCC. To further investigate the molecular . DISCUSSION ??profile of this tumor, chromosome SNP microarray testing will be ordered and will be ??reported separately. A/P: [id number] papillary type 2 RCC. Will schedule a BMP, and CT chest/abdomen in 3 months. Encouraged tostay hydrated and f/u with PCP to assess renal function next week documented in this encounter Plan of Treatment Scheduled Orders Name Type Priority Associated Diagnoses Orde r Schedule Basic Metabolic Panel (non-fasting) Lab STAT Renal cell carcinoma, unspecified laterality Expected: 06/23/2017 (Approximate), Expires: 06/23/2018 documented as of this encounter Results * CT Chest & [...] Mediastinum and lupe: No lymphadendopathy. Abdomen LEFT [place] kidney: Interval nephrectomy. RIGHT [place] [facility] : Atrophic, unchanged. Transplanted RIGHT pelvic [...] Mediastinum and lupe: No lymphadendopathy. Abdomen LEFT [place] kidney: Interval nephrectomy. RIGHT [place] [facility] : Atrophic, unchanged. Transplanted RIGHT pelvic [...] Diagnoses Diagnosis Renal cell carcinoma, unspecified laterality Renal cell carcinoma, unspecified laterality documented in this encounter Care Teams Lead Ios Developer Relationship Specialty Start Date End Date Carroll Fuentes DO [address] [place] [address] PCP - General 09/23/11 10/20/22 documented as of this encounter
--- OUTSIDE RECORDS SUMMARY | 2024-04-22 11:09 | XMS_ITS | Encounter Summary ---
Author Organization [facility] [place] [address] Care Team Providers Care Sorter Pricer Name Role Phone AlfredoCarroll geiger Primary Care Provider Encounter Details Date Type Department Care Team (Latest Contact Info) Description 06/28/2017 8:40 AM EST Laboratory Appointment Lab [address] [place] [address] Kidney replaced by transplant Social History Tobacco Use Types Packs/Day [...] Procedure Name Priority Date/Time Associated Diagnosis Comments SCAN, PERIPHERAL BLOOD STAT 7 8:59 AM EST HEMOGRAM STAT 06/28/2017 8:59 AM EST Kidney replaced by transplant DIFFERENTIAL, AUTOMATED STAT 06/28/2017 8:59 AM EST Kidney replaced by transplant GOLD TUBE HOLD STAT 06/28/2017 8:59 AM EST Kidney replaced by transplant LAVENDER TUBE HOLD STAT 06/28/2017 8: 59 AM EST Kidney replaced by transplant TACROLIMUS LEVEL STAT 06/28/2017 8:59 AM EST Kidney replaced by transplant RETICULOCYTE COUNT STAT 06/28/2017 8: 59 AM EST Kidney replaced by transplant CBC (WITH DIFF) STAT 06/28/2017 8:59 AM EST Kidney replaced by transplant URIC ACID STAT 06/28/2017 8:59 AM EST Kidney replaced by transplant PHOSPHORUS STAT 06/28/2017 8:59 AM EST Kidney replaced by transplant MAGNESIUM STAT 06/28/2017 8:59 AM EST Kidney replaced by transplant CHOLESTEROL, TOTAL STAT 06/28/2017 8: 59 AM EST Kidney replaced by transplant COMPREHENSIVE METABOLIC PANEL STAT 06/28/2017 8:59 AM EST Kidney replaced by transplant URINALYSIS MICROSCOPIC EXAM STAT 06/28/2017 8:56 AM EST PROTEIN/CREATININE RATIO, URINE STAT 06/28/2017 8:56 AM EST Kidney replaced by transplant URINALYSIS WITH REFLEX CULTURE STAT 06/28/2017 8:56 AM EST Kidney replaced by transplant documented in this encounter Results * Scan, Peripheral Blood (06/28/2017 8:59 AM EST) Plat estimate Normal [facility] RBC Morphology Abnormal [facility] Macrocyte 1-5 /HPF [facility] [place] Cells 1-5 /HPF [facility] Blood specimen (specimen) 06/28/2017 8:59 AM EST 06/28/2017 9:04 AM EST Narrative Resulting Agency Comment Spec In Lab Anup Hawkins MD HEMATOLOGY ORDERA BLES Performing Organization Address City/[facility]/ZIP Co de Phone Number [facility] [place] [address] * (ABNORMAL) Differential, Automated (06/28/2017 8:59 AM EST) Neutrophil % 67.9 % [facility] Neutrophil Absolute 3.54 1.70 - 6.10 x10(3)/mc L [facility] Lymph % 16.3 % [facility] Lymphocytes Abs 0.8(L) 0.9 - 3.2 x10(3)/mc L [facility] Monocyte % 9.8 % [facility] Monocyte Abs 0.5 0.3 - 0.9 x10(3)/mc L [facility] Eos % 5.0 % [facility] Eosinophils Abs 0.3 0.0 - 0.4 x10(3)/mc L [facility] Basophil % 0.8 % [facility] Baso Absolute 0.0 0.0 - 0.1 x10(3)/mc L [facility] Immature Gran % 0.20 % [facility] Comment: Immature granulocytes(IG's)percentage and absolute count will include metamyelocytes, myelocytes, and promyelocytes. Blood smears from CBCs yielding IG's will be scanned manually for concordance. If this scan disagrees with the automated IG or if promyelocytes are noted, a manual differential will be performed. Immature Gran Absolute 0.01 0.00 - 0.04 x10(3)/mc L [facility] Blood specimen (specimen) 06/28/2017 8:59 AM EST 06/28/2017 9:04 AM EST Narrative Resulting Agency Comment Spec In Lab Anup Hawkins MD HEMATOLOGY ORDERA BLES Performing Organization Address City/[facility]/ZIP Co de Phone Number [facility] [place] [address] * (ABNORMAL) Hemogram (06/28/2017 8:59 AM EST) White Blood Cell 5.2 4.0 - 9.5 x10(3)/[facility] Red Blood Cell 3.41(L) 4.58 - 5.54 x10(6)/[facility] Hemoglobin 10.3(L) 13.7 - 16.5 gm/dL [facility] Hematocrit 33.8(L) 40.5 - 48.5 % [facility] Mean Cell Volume 99.1(H) 82.9 - 93.1 [facility] Mean Cell Hemoglobin 30.2 27.5 - 32.1 pg [facility] Mean Cell Hemoglobin Concentration 30.5(L) 32.0 - 35.7 gm/dL [facility] Platelet 204 145 - 357 x10(3)/[facility] RDW Standard Deviation 58.9(H) 36.0 - 45.0 [facility] RDW coefficient of variation 16.0(H) 11.4 - 13.8 % [facility] Mean Platelet Volume 9.6 7.6 - 12.9 [facility] NRBC% auto 0.0 % [facility] NRBC Absolute 0.000 0.000 - 0.000 x10(3)/[facility] Blood specimen (specimen) 06/28/2017 8:59 AM EST 06/28/2017 9:04 AM EST Narrative Resulting Agency Comment Spec In Lab Anup Hawkins MD HEMATOLOGY ORDERA BLES [facility] [place] [address] * Gold Tube HOLD (06/28/2017 8:59 AM EST) Gold Hold Sample in lab. [facility] Blood specimen (specimen) 06/28/2017 8:59 AM EST 06/28/2017 9:04 AM EST Anup Hawkins MD CHEMISTRY ORDERAB LES Performing Organization Address [facility] Co de Phone Number [facility] [place] [address] * Lavender Tube HOLD (06/28/2017 8:59 AM EST) Lavender Hold Sample in lab. [facility] Blood specimen (specimen) 06/28/2017 8:59 AM EST 06/28/2017 9:04 AM EST Anup Hawkins MD HEMATOLOGY ORDERA BLES Performing Organization Address [facility] Co de Phone Number [facility] [place] [address] * Uric acid (06/28/2017 8:59 AM EST) Uric Acid 4.8 3.5 - 8.5 mg/dL [facility] Blood specimen (specimen) 06/28/2017 8:59 AM EST 06/28/2017 9:04 AM EST Narrative Resulting Agency Comment Spec In Lab Anup Hawkins MD CHEMISTRY ORDERAB LES Performing Organization Address [facility] de Phone Number [facility] [place] [address] * Tacrolimus level (06/28/2017 8:59 AM EST) Tacrolimus <3.0 ng/mL [facility] Comment: Trough therapeutic: ??5-15 ng/mL Performed by ultra-performance liquid chromatography tandem mass spectrometry (UPLCMS/MS). This test was developed and its performance characteristics determined by [facility]. It has not been cleared or approved by the FDA. The laboratory is regulated under CLIA as qualified to perform high-complexity testing. This test is used for clinical purposes. It should not be regarded as investigational or for research. Blood specimen (specimen) 06/28/2017 8:59 AM EST 06/28/2017 10:19 AM EST Narrative Resulting Agency Comment Spec In Lab Anup Hawkins MD CHEMISTRY ORDERAB LES Performing Organization Address [facility] Co de Phone Number [facility] [place] [address] * Reticulocyte Count (06/28/2017 8:59 AM EST) Reticulocyte % 1.0 0.7 - 2.6 % [facility] Retic Abs # 0.030 0.030 - 0.120 x10(6)/mcL [facility] Immature Retic% 8.7 0.0 - 15.6 % [facility] Reticulated Hgb 33.1 31.3 - 40.2 pg [facility] Blood specimen (specimen) 06/28/2017 8:59 AM EST 06/28/2017 9:04 AM EST Narrative Resulting Agency Comment Spec In Lab Anup Hawkins MD HEMATOLOGY ORDERA BLES Performing Organization Address [facility] de Phone Number [facility] [place] [address] * Phosphorus (06/28/2017 8:59 AM EST) Phosphorus 4.4 2.5 - 4.5 mg/dL [facility] Blood specimen (specimen) 06/28/2017 8:59 AM EST 06/28/2017 9:04 AM EST Narrative Resulting Agency Comment Spec In Lab Anup Hawkins MD CHEMISTRY ORDERAB LES Performing Organization Address [facility] Co de Phone Number [facility] [place] [address] * Magnesium (06/28/2017 8:59 AM EST) Magnesium 0.82 0.69 - 1.07 mmol/L [facility] Blood specimen (specimen) 06/28/2017 8:59 AM EST 06/28/2017 9:04 AM EST Narrative Resulting Agency Comment Spec In Lab Anup Hawkins MD CHEMISTRY ORDERAB LES [facility] [place] [address] * (ABNORMAL) Comprehensive metabolic panel (non-fasting) (06/28/2017 8:59 AM EST) Glucose 105 65 - 199 mg/dL [facility] Comment:Diabetes: >=200 mg/d L plus symptoms Blood Urea Nitrogen 53(H) 10 - 20 mg/dL [facility] Creatinine 2.24(H) 0.80 - 1.50 mg/dL [facility] Sodium 146(H) 135 - 145 mmol/L [facility] Potassium 5.0 3.5 - 5.0 mmol/L [facility] Comment: Please note: ??Patients with WBC >100,000 may have falsely elevated Potassium levels. ??For accurate Potassium quantification in these patients send serum separator tube (gold top) for subsequent determinations. ??Contact the Clinical Chemistry Laboratory if there are any questions. Chloride 118(H) 98 - 107 mmol/L [facility] Carbon Dioxide 17(L) 22 - 31 mmol/L [facility] Anion Gap 11 5 - 15 mmol/L [facility] Calcium 8.4(L) 8.5 - 10.5 mg/dL [facility] Protein, Total 6.8 6.1 - 8.0 gm/dL [facility] Albumin 4.2 3.2 - 5.2 gm/dL [facility] Aspartate Aminotransferase 19 0 - 39 unit/L [facility] Alanine Aminotransferase 11 0 - 55 unit/L [facility] Alkaline Phosphatase 116 40 - 120 unit/L [facility] Bilirubin, Total 0.3 0.2 - 1.3 mg/dL [facility] Est Glomerular Filtration Rate 31(L) >=60 [facility] Comment: The reported eGFR should be multiplied by 1.2 for patients. The MDRD is not an appropriate measure of renal function for patients with body mass extremes or in patients with acute kidney failure. http://[employer]/DHnkdep http://[employer]/DHMCnkf Blood specimen (specimen) 06/28/2017 8:59 AM EST 06/28/2017 9:04 AM EST Narrative Resulting Agency Comment Spec In Lab Anup Hawkins MD CHEMISTRY ORDERAB LES [facility] [place] [address] * Cholesterol, total (06/28/2017 8:59 AM EST) Cholesterol, Total 143 <=239 mg/dL [facility] Lipid Interpretation See Note [facility] Comment: Lipid management should be guided by a patient? s ASCVD risk, goals and preferences. ACC/AHA Guidelines recommend high intensity statin if clinical ASCVD or LDL greater than or equal to 190 mg/dL. http://[employer]/GEE-XLC-Nzabg[place]ke Adults aged 40-75 with LDL 70-189 mg/dL should have their 10 year ASCVD risk estimated with the ACC/AHA ASCVD risk electrical estimator http://tools.acc.org/IBIJL-Gflx-Ynxcwiokr/ Statin should be discussed if risk greater [...] of ASCVD risk reduction. Blood specimen (specimen) 06/28/2017 8:59 AM EST 06/28/2017 9:04 AM EST Narrative Resulting Agency Comment Spec In Lab Anup Hawkins MD CHEMISTRY ORDERAB LES Performing Organization Address City/[facility]/ZIP Co de Phone Number [facility] [place] [address] * Urinalysis Microscopic Exam (06/28/2017 8:56 AM EST) RBC, Urine <1 0 - 3 /HPF [facility] WBC, Urine <1 0 - 3 /HPF [facility] Urine specimen obtained by clean catch procedure (specimen) 06/28/2017 8:56 AM EST 06/28/2017 9:05 AM EST Narrative Resulting Agency Comment Spec In Lab Anup Hawkins MD URINE ORDERABLES Performing Organization Address [facility] Co de Phone Number [facility] [place] [address] * (ABNORMAL) Urinalysis with reflex Culture (06/28/2017 8:56 AM EST) Glucose, Urine Dipstick Negative Negative mg/dL [facility] Protein, Urine Dipstick 100(A) Negative mg/dL [facility] Bilirubin, Urine Dipstick Negative Negative mg/dL [facility] Comment: Clinical correlation required for positive Urine Bilirubin results as false positive may occur with some drugs and drug related products. If a false positive is suspected a serum total bilirubin should be considered if clinically indicated. Urobilinogen, Urine Dipstick Normal Normal mg/dL [facility] pH, Urn (dipstick) 5.0 5.0 - 8.0 [facility] Blood, Urine Dipstick Negative Negative mg/dL [facility] Ketone, Urine Dipstick Negative Negative mg/dL [facility] Nitrite, Urine Dipstick Negative Negative [facility] Leukocytes, Urine Dipstick Negative Negative [facility] Appearance, Urine Dipstick Clear Clear [facility] Specific [place] Urine Automated 1.014 1.002 - 1.030 [facility] Color, Urine Dipstick Yellow Yellow [facility] Reflex to Culture No [facility] Urine specimen obtained by clean catch procedure (specimen) 06/28/2017 8:56 AM EST 06/28/2017 9:05 AM EST Narrative Resulting Agency Comment Spec In Lab Anup Hawkins MD URINE ORDERABLES Performing Organization Address City/[facility] Co de Phone Number [facility] [place] [address] * (ABNORMAL) Protein/Creatinine Ratio, urine (06/28/2017 8:56 AM EST) Creatinine, Urine 61 mg/dL [facility] Protein, Urine 145(H) 0 - 12 mg/dL [facility] Protein / Creatinine Ratio, Urine 2.4 ratio [facility] Urine specimen (specimen) 06/28/2017 8:56 AM EST 06/28/2017 9:05 AM EST Narrative Resulting Agency Comment Spec In Lab Anup Hawkins MD URINE ORDERABLES Performing Organization Address City/[facility] Co de Phone Number [facility] [place] [address] documented in this encounter Visit Diagnoses Diagnosis Kidney replaced by transplant documented in this encounter Care Teams Sorter Pricer Relationship Specialty Start Date End Date Carroll Fuentes DO [address] [place] [address] PCP - General 09/23/11 10/20/22 documented as of this encounter
--- OUTSIDE RECORDS SUMMARY | 2024-04-22 11:09 | XMS_ITS | Encounter Summary ---
Author Organization [facility], [facility] [place] [address] Care Team Providers Care Print Line Inspector Name Role Phone AlfredoCarroll allison Primary Care Provider [phone] Encounter Details Date Type Department Care Team (Late st Contact Info) Description 06/23/2017 Telephone [place] [address] Crystal Brown CMA Social History Tobacco Use [...] Telephone Encounter - Crystal Brown CMA - 06/23/2017 12:45 PM EST Left message on ID v/m that patient needs to contact the provider that prescribed the warfarin for a renewal. * Telephone Encounter - Crystal Brown CMA - 06/23/2017 12:43 PM EST Patient left message on refill request line for warfarin 5 mg to be filled at [facility] in [facility]. documented in this encounter Plan of Treatment Not on file documented as of this encounter Visit Diagnoses Not on filedocumented in this encounter Care Teams Print Line Inspector Relationship Specialty Start Date End Date Carroll Fuentes DO [address] [place] [address] [address] [facility] [address] [place] [address] PCP - General 09/23/11 10/20/22 documented as of this encounter
--- OUTSIDE RECORDS SUMMARY | 2024-04-22 11:09 | XMS_ITS | Encounter Summary ---
Author Organization [facility] Address [facility] [place] [address] Care Team Providers Care Cosmetology Educator Name Role Phone AlfredoCarroll allison Primary Care Provider [phone] Reason for Visit * Reason Comments Kidney Transplant Follow-up Immunotherapy Post Hospital Discharge Encounter Details Date Type Department Care Team (Latest Contact Info) Description 06/28/2017 9:40 AM EST Office Visit [place] [address] Anup Hawkins MD [facility] [place] [address] Kidney replaced by transplant; IgA nephropathy; Aftercare following organ transplant; Prophylactic immunotherapy; custodial current use of immunosuppressive drug; H/O kidney [...] Sign Reading Time Taken Comments Blood Pressure 132/76 06/28/2017 9:30 AM EST man ual Pulse 57 06/28/2017 9:30 AM EST Temperature 36.4 ??C (97.6 ??F) 06/28/2017 9:30 AM ES T Respiratory Rate 12 06/28/2017 9:30 AM EST Oxygen Saturation 98% 06/28/2017 9:30 AM EST Inhaled Oxygen Concentration - - Weight 77.6 kg (171 lb) 06/28/2017 9:30 AM EST Height - - Body Mass Index 24.54 05/31/2017 9:30 AM EST documented in this encounter Progress Notes * Crystal Brown CMA - 06/28/2017 9:40 AM EST Confirmed patient's last name and Reviewed tobacco use, all allergies and meds, dose and frequency. Protonix now 20 mg BID, no misseddoses. No additional OTC meds, nutritional or herbal supplements. Reviewed education tab. Reviewed immunizations; UTD Per Dr. Hawkins; increase sodium bicarbonate to 650 TID, restart losartan 25 mg every morning. New scripts to be sent to [facility] in [place], [place]. * Anup Hawkins MD - 06/28/2017 9:40 AM EST [facility] Transplant Nephrology Follow Up ? Date: 06/28/2017 Patient: Christy Ambrose Transplant Date: 11/26/2002 ? Transplant organ/Indication: ??Kidney / IgA nephropathy, Prograf toxicity ? Transplant ID:??Mr. Christy Ambrose is a 56 y.o. male who is Status Post Kidney transplantation on 11/26/02. Post-op course was significant for delayed graft function, recurrent IgA nephropathy and Prograf toxicity, and the requirement of adjusting his pre-existing anticonvulsants. Patient was initially referred by his PCP - Dr. Garcia. Patient is out 14 7 years from transplant. He had his left arm AVF taken down due to massive size, and increased risk for high output CHF.Patient [facility] for acute follow-up after recent hospitalization for his left agdaagux nephrectomy. ? Interim Hx: Patient was just discharged from [facility] on 05/16 after recent TRISTIAN, Upper GI Bleed and diagnosis of malignant mass in left agdaagux kidney. Patient describes feeling better since being discharge. Patient denies any recurrent episodes of hematemesis, and Hgb was 9.1 this AM. Patient remains on PPI BID. Patient renal graft function has plateaued --> with serum Cr of 2.87mg/dL this AM. Prior to that admit a complex intra renal agdaagux kidney mass was detected on a screening U/S and a left partial nephrectomy was performed. 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 Patient is compliant with his medication regimen. Prior to recent admission, patient had experienced an approx 20lb weight loss (unintentional), and patient had CT of abdomen and pelvis performed while inpatient. Imaging showed several large agdaagux renal masses --> that were concerningfor RCC or metastatic lesions. Patient is scheduled to be seen by urology this afternoon. Patient denies any CP, SOB, TORRES or palpitations. Patient denies fever/ chills and denies any N/V/D or change in PO intake. ? Healthcare maintenance for a transplant recipient: [...] for diabetics, every 5 for non diabetics Andreafski kidney ultrasound looking for renal cell CA, [...] or negative ? Medications: ?? Current Outpatient Prescriptions: ??? acetaminophen (TYLENOL) 500 mg Tablet, Take [...] daily., Disp: 90 capsule, Rfl: 3 ??? tacrolimus (PROGRAF) 1 mg Capsule, Take 1 capsule twice daily. Kidney transplant 11/26/2002. ICDcode Z94.0, Disp: 60 capsule, Rfl: 11 ??? levETIRAcetam (KEPPRA) 500 mg Tablet, Take 500 mg by mouth 2 times daily. Take 500 mg in the morning and 1,000 mg at night., Disp: , Rfl: ??? pantoprazole (PROTONIX) 20 mg Tablet, Delayed Release (E.C.), Take 20 mg by mouth daily., Disp:, Rfl: ??? mycophenolate (CELLCEPT) 250 mg Capsule, Take 1 capsule by mouth 2 times daily. Kidney Transplant Z94.0. Transplant Date; 11-26-02, Disp: 180 capsule, Rfl: 11 ??? hydrALAZINE (APRESOLINE) 50 mg Tablet, Take 1 tablet by mouth 2 times daily., Disp: 180 tablet,Rfl: 3 ??? allopurinol (ZYLOPRIM) 100 mg Tablet, Take 1 and 1/2 tablet daily., Disp: 45 tablet, Rfl: 11 ??? multivitamin Capsule, Take 1 capsule by mouth daily., Disp: , Rfl: ??? levothyroxine (SYNTHROID) 88 mcg tablet, Take 88 mcg by mouth daily., Disp: , Rfl: ??? metoprolol tartrate (LOPRESSOR) 50 mg tablet, Take 50 mg by mouth 3 times daily., Disp: , Rfl: ??? sodium bicarbonate 650 mg Tablet, Take 1 tablet by mouth 3 times daily., Disp: 270 tablet, Rfl:3 ??? losartan (COZAAR) 25 mg Tablet, Take 1 tablet by mouth every morning., Disp: 90 tablet, Rfl: 3 Allergies / ADRs: ? Allergies Allergen Reactions ??? Benazepril Hcl ? Codeine Other (See Comments) ? Patient does not know reaction ??? Hydrochlorothiazide ? Pollen Extracts ? Sneezing/runny nose ? PHYSICAL EXAM: Vitals Office Visit from 06/28/2017 in Transplant at [place] Weight 77.6 kg (171 lb) Temp 36.4 ??C (97.6 ??F) Temp src Oral Heart Rate 57 Resp 12 BP 132/76 [manual] Patient Position Sitting SpO2 98 % ? Gen - AAO x 3 in NAD, [...] for CHRISTY AMBROSE ( ) as of 07/15/2017 15:15 Ref. Range 06/23/2017 12:21 06/28/2017 08:56 06/28/2017 08:59 06/29/2017 11:15 WBC Latest Ref Range: 4.0 - 9.5 x10(3)/mcL 5.2 RBC Latest Ref Range: 4.58 - 5.54 x10(6)/mcL 3.41 (L) Hemoglobin Latest Ref Range: 13.7 - 16.5 gm/dL 10.3 (L) Hematocrit Latest Ref Range: 40.5 - 48.5 % 33.8 (L) MCV Latest Ref Range: 82.9 - 93.1 fL 99.1 (H) MCH Latest Ref Range: 27.5 - 32.1 pg 30.2 MCHC Latest Ref Range: 32.0 - 35.7 gm/dL 30.5 (L) RDWSD Latest Ref Range: 36.0 - 45.0 fL 58.9 (H) RDWCV Latest Ref Range: 11.4 - 13.8 % 16.0 (H) Platelets Latest Ref Range: 145 - 357 x10(3)/mcL 204 MPV Latest Ref Range: 7.6 - 12.[address] % Latest Ref Range: 0.7 - 2.6 % 1.[address] Abs Latest Ref Range: 0.030 - 0.120 x10(6)/mcL 0.030 Immature Retic% Latest Ref Range: 0.0 - 15.6 % 8.7 Reticulated Hgb Latest Ref Range: 31.3 - 40.2 pg 33.1 nRBC % Auto Latest Units: % 0.0 nRBC Abs Auto Latest Ref Range: 0.000 - 0.000 x10(3)/mcL 0.000 Neutr Abs (ANC) Latest Ref Range: 1.70 - 6.10 x10(3)/mcL 3.54 Neutrophils % Latest Units: % 67.9 Immature Gran % Latest Units: % 0.20 Lymphocytes % Latest Units: % 16.3 Monocytes % Latest Units: % 9.8 Eosinophils % Latest Units: % 5.0 Basophils % Latest Units: % 0.8 Veronika Gran Abs Latest Ref Range: 0.00 - 0.04 x10(3)/mcL 0.01 Lymphocytes Abs Latest Ref Range: 0.9 - 3.2 x10(3)/mcL 0.8 (L) Monocyte Abs Latest Ref Range: 0.3 - 0.9 x10(3)/mcL 0.5 Eosinophils Abs Latest Ref Range: 0.0 - 0.4 x10(3)/mcL 0.3 Basophils Abs Latest Ref Range: 0.0 - 0.1 x10(3)/mcL 0.0 Plat Estimate Unknown Normal RBC Morphology Unknown Abnormal Macrocytes Latest Units: /HPF 1-5 [place] Cells Latest Units: /HPF 1-5 Sodium Latest Ref Range: 135 - 145 mmol/L 146 (H) 146 (H) Potassium Latest Ref Range: 3.5 - 5.0 mmol/L 5.7 (H) 5.0 Chloride Latest Ref Range: 98 - 107 mmol/L 114 (H) 118 (H) CO2 Latest Ref Range: 22 - 31 mmol/L 18 (L) 17 (L) Anion Gap Latest Ref Range: 5 - 15 mmol/L 14 11 BUN Latest Ref Range: 10 - 20 mg/dL 55 (H) 53 (H) Creatinine Latest Ref Range: 0.80 - 1.50 mg/dL 2.55 (H) 2.24 (H) Estimated GFR Latest Ref Range: >=60 26 (L) 31 (L) Glucose Lvl Latest Ref Range: 65 - 199 mg/dL 84 105 Calcium Latest Ref Range: 8.5 - 10.5 mg/dL 8.5 8.4 (L) Magnesium Latest Ref Range: 0.69 - 1.07 mmol/L 0.82 Phosphorus Latest Ref Range: 2.5 - 4.5 mg/dL 4.4 Uric Acid Latest Ref Range: 3.5 - 8.5 mg/dL 4.8 Total Protein Latest Ref Range: 6.1 - 8.0 gm/dL 6.8 Albumin Latest Ref Range: 3.2 - 5.2 gm/dL 4.2 Total Bilirubin Latest Ref Range: 0.2 - 1.3 mg/dL 0.3 Alk Phos Latest Ref Range: 40 - 120 unit/L 116 AST Latest Ref Range: 0 - 39 unit/L 19 ALT Latest Ref Range: 0 - 55 unit/L 11 U Protein Ran Latest Ref Range: 0 - 12 mg/dL 145 (H) Chol, Total Latest Ref Range: <=239 mg/dL 143 Lipid Interpretation Unknown See Note Tacrolimus Lvl Latest Units: ng/mL <3.0 <3.0 Color UA Latest Ref Range: Yellow Yellow Appearance UA Latest Ref Range: Clear Clear Spec [place] UA Latest Ref Range: 1.002 - 1.030 1.014 pH UA Latest Ref Range: 5.0 - [...] Ref Range: 0 - 3 /HPF <1 Culture Reflexed Unknown No Prot/Cre Ratio Latest Units: ratio 2.4 U Creatinine Latest Units: mg/dL 61 ? Impression/ Plan: Mr. Ambrose is a 56 yr old gentleman w/ hx of kidney transplant who presents to transplant clinic for f/u after recent hospitalization for partial nx for left agdaagux papillary renal carcinoma ? 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 Post-Transplant Course complicated by delayed graft function, recurrent IgA and prograf toxicity -Serum creatinine has trended up, but appears to have plateaued after discharge --> as 2.24mg/dLthis AM -stable proteinuria UPC 0.5gm ? Immunosuppression: -patient is consistent/ compliant with his immunosuppressive regimen -Prograf 1mg/1mg -Cellcept 250mg PO BID -most recent prograf trough was <3.0 this AM ? S/p Upper GI Bleed: -Hgb trending up --> was 9.1 this AM -patient remains on BID PPI lower dose to 20 mg bid from 40 mg bid ? PO4/Mg: -controlled, at goal, WNL on labs this AM ? Hypertension: -needs better controlled -Continue Hydralazine, Diltiazem, Metoprolol, start losartan 25 mg qAM ?? Bradycardia: -decreased metoprolol from 50mg --> 25mg PO TID ? Metabolic Acidosis: -serum bicarb low -continue sodium bicarbonate PO 650 mg tid with meals Monthly labs x 3, RTC 3 months * Anup Hawkins MD - 06/28/2017 9:40 AM EST See addended note documented in this encounter Plan of Treatment Not on file documented as of this encounter Results * Gold Tube HOLD (06/28/2017 8:59 AM EST) Gold Hold Sample in lab. [facility] Blood specimen (specimen) 06/28/2017 8:59 AM EST 06/28/2017 9:04 AM EST Anup Hawkins MD CHEMISTRY ORDERAB LES [facility] [place] [address] * Lavender Tube HOLD (06/28/2017 8:59 AM EST) Lavender Hold Sample in lab. [facility] Blood specimen (specimen) 06/28/2017 8:59 AM EST 06/28/2017 9:04 AM EST Anup Hawkins MD HEMATOLOGY ORDERA BLES [facility] [place] [address] * Uric acid (06/28/2017 8:59 AM EST) Uric Acid 4.8 3.5 - 8.5 mg/dL [facility] Blood specimen (specimen) 06/28/2017 8:59 AM EST 06/28/2017 9:04 AM EST Narrative Resulting Agency Comment Spec In Lab Anup Hawkins MD CHEMISTRY ORDERAB LES Performing Organization Address [facility] de Phone Number [facility] [place] [address] * Tacrolimus level (06/28/2017 8:59 AM EST) Tacrolimus <3.0 ng/mL [facility] Comment: Trough therapeutic: ??5-15 ng/mL [...] MD CHEMISTRY ORDERAB LES Performing Organization Address [facility] de Phone Number [facility] [place] [address] * Reticulocyte Count (06/28/2017 8:59 AM EST) Reticulocyte % 1.0 0.7 - 2.6 % [facility] Retic Abs # 0.030 0.030 - 0.120 x10(6)/mcL [facility] Immature Retic% 8.7 0.0 - 15.6 % [facility] Reticulated Hgb 33.1 31.3 - 40.[address] [facility] Blood specimen (specimen) 06/28/2017 8:59 AM EST 06/28/2017 9:04 AM EST Narrative Resulting Agency Comment Spec In Lab Anup Hawkins MD HEMATOLOGY ORDERA BLES Performing Organization Address [facility] Co de Phone Number [facility] [place] [address] * Phosphorus (06/28/2017 8:59 AM EST) Pathologist [facility] Phosphorus 4.4 2.5 - 4.5 mg/dL [facility] Blood specimen (specimen) 06/28/2017 8:59 AM EST 06/28/2017 9:04 AM EST Narrative Resulting Agency Comment Spec In Lab Anup Hawkins MD CHEMISTRY ORDERAB LES Performing Organization Address [facility] Phone Number [facility] [place] [address] * Magnesium (06/28/2017 8:59 AM EST) [facility] Magnesium 0.82 0.69 - 1.07 mmol/L [facility] Blood specimen (specimen) 06/28/2017 8:59 AM EST 06/28/2017 9:04 AM EST Narrative Resulting Agency Comment Spec In Lab Anup Hawkins MD CHEMISTRY ORDERAB LES Performing Organization Address [facility] Phone Number [facility] [place] [address] * (ABNORMAL) Comprehensive metabolic panel (non-fasting) (06/28/2017 8:59 AM EST) Pathologist [facility] Glucose 105 65 - 199 mg/dL [facility] Comment:Diabetes: >=200 mg/d L plus symptoms Blood Urea Nitrogen 53(H) 10 - 20 mg/dL [facility] Creatinine 2.24(H) 0.80 - 1.50 mg/dL [facility] Sodium 146(H) 135 - 145 mmol/L [facility] Potassium 5.0 3.5 - 5.0 mmol/L [facility] Comment: Please note: ??Patients with WBC >100,000 may have falsely elevated Potassium levels. ??For accurate Potassium quantification in these patients send serum separator tube (gold top) for subsequent determinations. ??Contact the Clinical Chemistry Laboratory if there are any questions. Chloride 118(H) 98 - 107 mmol/L [facility] Carbon Dioxide 17(L) 22 - 31 mmol/L [facility] Anion Gap 11 5 - 15 mmol/L [facility] Calcium 8.4(L) 8.5 - 10.5 mg/dL [facility] Protein, Total 6.8 6.1 - 8.0 gm/dL [facility] Albumin 4.2 3.2 - 5.2 gm/dL [facility] Aspartate Aminotransferase 19 0 - 39 unit/L [facility] Alanine Aminotransferase 11 0 - 55 unit/L [facility] Alkaline Phosphatase 116 40 - 120 unit/L [facility] Bilirubin, Total 0.3 0.2 - 1.3 mg/dL [facility] Est Glomerular Filtration Rate 31(L) >=60 [facility] Comment: The reported eGFR should be multiplied by 1.2 for patients. The MDRD is not an appropriate measure of renal function for patients with body mass extremes or in patients with acute kidney failure. http://[employer].AKT/DHnkdep http://[employer].com/DHMCnkf Blood specimen (specimen) 06/28/2017 8:59 AM EST 06/28/2017 9:04 AM EST Narrative Resulting Agency Comment Spec In Lab Anup Hawkins MD CHEMISTRY ORDERAB LES [facility] [place] [address] * Cholesterol, total (06/28/2017 8:59 AM EST) Cholesterol, Total 143 <=239 mg/dL [facility] Lipid Interpretation See Note [facility] Comment: Lipid management should be guided by a patient? s ASCVD risk, goals and preferences. ACC/AHA Guidelines recommend high intensity statin if clinical ASCVD or LDL greater than or equal to 190 mg/dL. http://[email or web address].com/REU-PMN-Qurwchzfh Adults aged 40-75 with LDL 70-189 mg/dL should have their 10 year ASCVD risk estimated with the ACC/AHA ASCVD risk upholstery estimator http://tools.acc.org/NFGNF-Utiy-Efmjdovol/ Statin should be discussed if risk greater [...] Lab Anup Hawkins MD CHEMISTRY ORDERAB LES [facility] [place] [address] * (ABNORMAL) Urinalysis with reflex Culture (06/28/2017 8:56 AM EST) Glucose, Urine Dipstick Negative Negative mg/dL [facility] Protein, Urine Dipstick 100(A) Negative mg/dL [facility] Bilirubin, [...] [facility] pH, Urn (dipstick) 5.0 5.0 - 8.0 [facility] Blood, Urine Dipstick Negative Negative mg/dL [facility] Ketone, Urine Dipstick Negative Negative mg/dL [facility] Nitrite, Urine Dipstick Negative Negative [facility] Leukocytes, Urine Dipstick Negative Negative [facility]ATORY Appearance, Urine Dipstick Clear Clear [facility] Specific [place] Urine Automated 1.014 1.002 - 1.030 [facility] Color, Urine Dipstick Yellow Yellow [facility] Reflex to Culture No [facility] Urine specimen obtained by clean catch procedure (specimen) 06/28/2017 8:56 AM EST 06/28/2017 9:05 AM EST Narrative Resulting Agency Comment Spec In Lab Anup Hawkins MD URINE ORDERABLES Performing Organization Address [facility] Co de Phone Number [facility] [place] [address] * (ABNORMAL) Protein/Creatinine Ratio, urine (06/28/2017 8:56 AM EST) Creatinine, Urine 61 mg/dL [facility] Protein, Urine 145(H) 0 - 12 mg/dL [facility] Protein / Creatinine Ratio, Urine 2.[address] [facility] Urine specimen (specimen) 06/28/2017 8:56 AM EST 06/28/2017 9:05 AM EST Narrative Resulting Agency Comment Spec In Lab Anup Hawkins MD URINE ORDERABLES Performing Organization Address [facility] Co de Phone Number [facility] [place] [address] documented in this encounter Visit Diagnoses Diagnosis Kidney replaced by transplant IgA nephropathy Nephritis and nephropathy, not specified as acute or chronic, with unspecified pathological lesion in kidney Aftercare following organ transplant Prophylactic immunotherapy 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
--- OUTSIDE RECORDS SUMMARY | 2024-04-22 11:09 | XMS_ITS | Encounter Summary ---
[place] [address] Care Team Providers Care Decating Machine Operator Name Role Phone AlfredoCarroll allison Primary Care Provider [phone] Reason for Visit * Reason Comments Renal Mass * Consultation (Hospitalist (2 weeks)) - Closed Specialty Diagnoses / Procedures Referred By Contac t Referred To Contact Urology Diagnoses TRISTIAN (acute kidney injury) S/P kidney transplant Weight loss End stage renal disease Gout, unspecified cause, unspecified chronicity, unspecified site Hypertension, unspecified type Kidney replaced by transplant IgA nephropathy Basal cell carcinoma, unspecified site Acne rosacea Nevus Rosacea Anticoagulated on Coumadin Non-neoplastic nevus Polyp of colon, unspecified part of colon, unspecified type Squamous cell carcinoma of skin of other parts of face Aftercare following organ transplant CKD (chronic kidney disease) stage 4, GFR 15-29 ml/min Prophylactic immunotherapy custodial current use of immunosuppressive drug H/O kidney transplant [place] [address] [facility] [place] [address] Referral ID Status Reason Start Date Expiration Date V isits Requested Visits Authorized [id number] Closed Specialty Service Requested 05/16/2017 05/16/2018 1 1 Encounter Details Date Type Department Care Team (Late st Contact Info) Description 05/19/2017 1:20 PM EST [place] [address] Jax Mills MD [facility] [place] [address] Renal mass Social History Tobacco Use Types Packs/Day Years [...] as of this encounter Progress Notes * Jax Mills MD - 05/19/2017 1:20 PM EST UROLOGY NEW PATIENT VISIT CC: left renal mass HPI: 56 yo male who underwent a renal transplantation in 2002 (), who was recently found tohave new renal masses in his [place] left kidney. He denies any flank pain or hematuria. He has lost~ 20lbs over the last 2 months (lack of appetite). He denies any family hx of RCC. Renal function has been stable (GFR b/w 23-31 recently). Past Medical History: Diagnosis Date ??? BP [...] performed by Miguel Angel Moreno MD at [facility] MAIN OR ??? PRO EXC PAROTD, TOTAL, UNILAT RAD NECK Left 02/05/2016 @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, TOTAL, WITH UNILATERAL RADICAL NECK DISSECTION performed by Miguel Angel Moreno MD at [facility] MAIN OR ??? PRO EXC SKIN MALIG 3.1-4CM FACE, FACIAL Left 02/05/2016 EXC MALIGNANT LESION, 3.1 TO 4.0CM, FACE performed by Miguel Angel Moreno MD at [facility] MAIN OR ? ? PRO EXC SKIN MALIG >4CM TRUNK, ARM, LEG 04/19/2012 EXC MALIGNANT LESION, MICHAEL > 4.0CM, TRUNK performed by SABRINA SANCHEZ at [facility] MAIN OR ??? PRO REPAIR INTERMEDIATE S/A/T/E 2.6-7.5 CM 04/19/2012 REPAIR INTERMEDIATE WOUND, (NO HANDS OR FEET) 2.6 TO 7.5CM, UPPER EXTREMITY performed by SABRINA SANCHEZ at [facility] MAIN OR ? ? PRO SPLIT GRFT, HEAD, FAC, HAND, FEET <100SQCM N/A 02/20/2016 SPLIT THICKNESS SKIN SPLIT GRAFT,100SQ CM OR LESS, NECK performed by Miguel Angel Moreno MD at [facility] MAIN OR ??? PRO UPPER GI ENDOSCOPY, BIOPSY N/A 05/13/2017 EGD WITH BIOPSY (WRVU 2.49) performed by Aditya Barrera MD at [facility] ENDOSCOPY ??? PRO VASCULAR SURGERY PROCEDURE UNLIST Left 11/20/2015 LIGATION\REPAIR AV FISTULA performed by Camilo Ireland MD at [facility] MAIN OR ??? PRO VASCULAR SURGERY PROCEDURE UNLIST Left 11/20/2015 EXCISION VEIN FROM HAND performed by Camilo Ireland MD at [facility] MAIN OR ??? US RENAL TRANSPLANT BIOPSY 12/31/2010 Social History Substance Use Topics ??? Smoking status: Former Smoker Packs/day: 0.25 Years: 1.50 Types: Cigarettes Quit date: 12/03/2000 ??? Smokeless tobacco: Former User Quit date: 04/14/2001 ??? Alcohol use No Family History Problem Relation Age of Onset ??? 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 Positive for 20lbs weight loss ECHO VASCULAR TECH: Denies loss of consciousness, denies balance difficulty, denies pins/needle sensations. HEENT: Denies headaches and vision changes. Positive for ear infections. RESP: Denies cough or breathing difficulties. CVS: Denies chest pain and TORRES. No claudication. GI: Positive for nausea and heartburn. Normal bowel movements. : see hpi MUSCULOSKELETAL: Denies joint or muscle aches. Denies back pain. SKIN: Positive for skin rash and itch. HEME: Denies bleeding tendencies, bruisability. EXAMINATION: There were no vitals filed for this visit. GENERAL: alert, oriented, nad. HEENT: scar noted on left head/scalp. Anicteric sclera. MMM. NECK: Supple with no significant lymphadenopathy. RESPIRATORY: Unlabored respirations with no audible wheezing. CARDIAC: Regular rhythm with no audible MGR. ABDOMEN: Benign without masses. No rebound or guarding. Right lower quadrant scar noted. BACK: No CVA tenderness GENITALIA: Scrotum - Color and texture normal; no masses. Testicles and epididymides - No tenderness or masses. Penis - Circumcised with orthotopic meatus; no masses or surface lesions. NEUROLOGIC: Alert and oriented x 3. EXTREMITIES: Warm and well perfused with no pitting edema. LABS:Results for CHRISTY AMBROSE ( ) as of 05/19/2017 15:40 Ref. Range 05/19/2017 10:43 05/19/2017 10:44 WBC Latest Ref Range: 4.0 - 9.5 x10(3)/mcL 4.1 RBC Latest Ref Range: 4.58 - 5.54 x10(6)/mcL 3.04 (L) Hemoglobin Latest Ref Range: 13.7 - 16.5 gm/dL 9.1 (L) Hematocrit Latest Ref Range: 40.5 - 48.5 % 28.0 (L) MCV Latest Ref Range: 82.9 - 93.1 fL 92.1 MCH Latest Ref Range: 27.5 - 32.1 pg 29.9 MCHC Latest Ref Range: 32.0 - 35.7 gm/dL 32.5 RDWSD Latest Ref Range: 36.0 - 45.0 fL 50.8 (H) RDWCV Latest Ref Range: 11.4 - 13.8 % 15.8 (H) Platelets Latest Ref Range: 145 - 357 x10(3)/mcL 217 MPV Latest Ref Range: 7.6 - 12.[address] % Latest Ref Range: 0.7 - 2.6 % 2.[address] Abs Latest Ref Range: 0.030 - 0.120 x10(6)/mcL 0.070 Immature Retic% Latest Ref Range: 0.0 - 15.6 % 24.8 (H) Reticulated Hgb Latest Ref Range: 31.3 - 40.2 pg 26.2 (L) nRBC % Auto Latest Units: % 0.0 nRBC Abs Auto Latest Ref Range: 0.000 - 0.000 x10(3)/mcL 0.000 Neutr Abs (ANC) Latest Ref Range: 1.70 - 6.10 x10(3)/mcL 2.93 Neutrophils % Latest Units: % 71.8 Immature Gran % Latest Units: % 0.20 Lymphocytes % Latest Units: % 12.7 Monocytes % Latest Units: % 12.7 Eosinophils % Latest Units: % 2.4 Basophils % Latest Units: % 0.2 Veronika Gran Abs Latest Ref Range: 0.00 - 0.04 x10(3)/mcL 0.01 Lymphocytes Abs Latest Ref Range: 0.9 - 3.2 x10(3)/mcL 0.5 (L) Monocyte Abs Latest Ref Range: 0.3 - 0.9 x10(3)/mcL 0.5 Eosinophils Abs Latest Ref Range: 0.0 - 0.4 x10(3)/mcL 0.1 Basophils Abs Latest Ref Range: 0.0 - 0.1 x10(3)/mcL 0.0 Sodium Latest Ref Range: 135 - 145 mmol/L 142 Potassium Latest Ref Range: 3.5 - 5.0 mmol/L 4.0 Chloride Latest Ref Range: 98 - 107 mmol/L 106 CO2 Latest Ref Range: 22 - 31 mmol/L 23 Anion Gap Latest Ref Range: 5 - 15 mmol/L 13 BUN Latest Ref Range: 10 - 20 mg/dL 32 (H) Creatinine Latest Ref Range: 0.80 - 1.50 mg/dL 2.87 (H) Estimated GFR Latest Ref Range: >=60 23 (L) Glucose Lvl Latest Ref Range: 65 - 199 mg/dL 94 Calcium Latest Ref Range: 8.5 - 10.5 mg/dL 8.1 (L) Magnesium Latest Ref Range: 0.69 - 1.07 mmol/L 0.66 (L) Phosphorus Latest Ref Range: 2.5 - 4.5 mg/dL 3.2 Uric Acid Latest Ref Range: 3.5 - 8.5 mg/dL 4.6 Total Protein Latest Ref Range: 6.1 - 8.0 gm/dL 5.7 (L) Albumin Latest Ref Range: 3.2 - 5.2 gm/dL 3.4 Total Bilirubin Latest Ref Range: 0.2 - 1.3 mg/dL 0.3 Alk Phos Latest Ref Range: 40 - 120 unit/L 115 AST Latest Ref Range: 0 - 39 unit/L 13 ALT Latest Ref Range: 0 - 55 unit/L 10 U Protein Ran Latest Ref Range: 0 - 12 mg/dL 46 (H) Chol, Total Latest Ref Range: <=239 mg/dL 82 Lipid Interpretation Unknown See Note Tacrolimus Lvl Latest Units: ng/mL 5.2 Color UA Latest Ref Range: Yellow Yellow Appearance UA Latest Ref Range: Clear Clear Spec [place] UA Latest Ref Range: 1.002 - 1.030 1.014 pH UA Latest Ref Range: 5.0 - 8.0 5.0 Protein UA Latest Ref Range: Negative mg/dL 30 (A) Glucose UA Latest Ref Range: Negative [...] Ref Range: 0 - 3 /HPF <1 Squam Epith UA Latest Ref Range: <=4 /HPF <1 Culture Reflexed Unknown No Prot/Cre Ratio Latest Units: ratio 0.5 U Creatinine Latest Units: mg/dL 100 IMAGING: EXAMINATION: CT CHEST ABDOMEN PELVIS WO CONTRAST ?? CLINICAL HISTORY: eval for malignancy though cannot use contrast in setting of TRISTIAN/CKD; significant weight loss; opacity noted over R 1st rib costochondral joint on chest XR; ?? TECHNIQUE: Helical CT of the chest, abdomen and pelvis was performed without intravenous contrast. Oral contrast was administered.. ?? COMPARISON: Renal ultrasound 05/12/2017, chest radiograph 05/10/2017, neck CT 12/03/2015 ?? FINDINGS: The absence of intravenous contrast limits the evaluation of solid viscera and vasculature. ?? Chest: Lungs and large airways: Dependent atelectasis noted bilaterally. Mild bronchiectasis and bronchial wall thickening. Pleura: Trace bilateral pleural fluid. Heart/vasculature: Trace pericardial effusion. Heart is borderline large. The ascending aorta is ectatic measuring 4.5 cm at the level of the main pulmonary artery. There is conventional three-vessel arch anatomy. Lymph nodes/Mediastinum/Janeth: Normal. ?? Abdomen/pelvis: Liver: The liver is borderline large measuring 20 cm in craniocaudal dimension the coronal plane. This however could be due to normal variant Argen[place] lobe. Bile ducts: Nondilated. Gallbladder: No calcified gallstones. Normal caliber wall. Pancreas: Normal attenuation without ductal dilatation. Spleen: Normal. Adrenals: Normal. Kidneys: The [place] kidneys are severely atrophied. There are 3 well-circumscribed lesions projecting from the upper pole of the [place] left kidney. The smallest measures 2.0 cm and measures fluid attenuation. There is a coarse peripheral calcification. The remaining 2 lesions are heterogeneous soft tissue density with a focus of fat or fluid centrally in the more inferior lesion. They measure 5.0-5.2 cm respectively. These larger renal lesions do not appear to invade nearby structures. No hydronephrosis or nephrolithiasis. The right pelvic transplant kidney demonstrates a normal unenhanced appearance. No hydronephrosis or nephrolithiasis. ?? Vasculature: No aneurysm. Lymph Nodes: There are scattered nonpathologically enlarged but prominent lymph nodes in the mesentery. Bowel: Nondilated, no wall thickening. Peritoneum and mesentery: No ascites, free air, or loculated fluid collection. No mesenteric inflammation. Abdominal wall: Normal. ?? Urinary Bladder: Normal. Reproductive organs: The prostate is enlarged. Osseous structures: Opacity seen on the recent chest radiograph corresponds to large degenerative osteophyte formation at the right sternoclavicular joint. No suspicious osseous lesion. ?? IMPRESSION 1. There are three left renal lesions, the larger two appear solid and measure up to 5.2 cm in diameter. They are suspicious for either a primary renal tumor such as renal cell carcinoma however metastasis could also be considered. The smaller lesions has a more cystic appearance. Recommend ultrasound for further evaluation to confirm vascularity within the solid lesions given the limitations of this nonenhanced study. 2. Degenerative arthropathy at the right sternoclavicular joint corresponds to opacity seen on recent chest radiograph. 3. No evidence of metastatic disease however exam is limited given the absence of intravenous contrast. 4. Trace bilateral pleural fluid. ASSESSMENT/PLAN: Left renal masses suspicious for malignancy. Discussed the role of biopsy, but given the size and the fact that the kidney is nonfunctional, I recommended to proceed with a laparoscopic radical nephrectomy. I discussed the risks of surgery, including bleeding, infection, adjacent organ injury, hernia formation, DVT, PE, [place], stroke and related to surgery. He will need to stop coumadin prior to surgery and will contact his PCP regarding lovenox bridging. He will need a CXR, EKG, and labs prior to surgery. documented in this encounter Plan of Treatment Not on file documented as of this encounter Results * XR Chest PA & Lateral (Generic) (05/26/2017 11:39 AM EST) Anatomical Region Laterality Modality Chest N/A Digital Radiogra phy Impressions 05/26/2017 11:44 AM EST Small bilateral pleural effusion. No evidence of pulmonary metastases. Narrative 05/26/2017 11:44 AM EST EXAMINATION: XR CHEST PA AND LATERAL (GENERIC) CLINICAL HISTORY: renal masses, preop evaluation TECHNIQUE: PA and lateral chest. COMPARISON: May 11, 2017. FINDINGS: Also interval evaluation on chest CT May 14, 2017. No suspicious pulmonary nodule. Prominent degenerative changes at the costochondral junction of the first rib on the right. Small bilateral pleural effusion. Normal size of the heart and width of the mediastinum. Degenerative changes of the spine. Procedure Note Ruma Boykin MD - 05/26/2017 EXAMINATION: XR CHEST PA AND LATERAL (GENERIC) CLINICAL HISTORY: renal masses, preop evaluation TECHNIQUE: PA and lateral chest. COMPARISON: May 11, 2017. FINDINGS: Also interval evaluation on chest CT May 14, 2017. No suspicious pulmonary nodule. Prominent degenerative changes at the costochondral junction of the first rib on the right. Small bilateralpleural effusion. Normal size of the heart and width of the mediastinum.Degenerative changes of the spine. IMPRESSION Small bilateral pleural effusion. No evidence of pulmonary metastases. Electronically signed by: CHET[facility], at107/26/2016 11:44 AM Jax Mills MD IMG DX ORDERABLES * (ABNORMAL) Comprehensive metabolic panel (non-fasting) (05/26/2017 11:19 AM EST) Glucose 97 65 - 199 mg/dL [facility] Comment:Diabetes: >=200 mg/d L plus symptoms Blood Urea Nitrogen 36(H) 10 - 20 mg/dL [facility] Creatinine 2.29(H) 0.80 - 1.50 mg/dL [facility] Sodium 148(H) 135 - 145 mmol/L [facility] Potassium 4.1 3.5 - 5.0 mmol/L [facility] Comment: Please note: ??Patients with WBC >100,000 may have falsely elevated Potassium levels. ??For accurate Potassium quantification in these patients send serum separator tube (gold top) for subsequent determinations. ??Contact the Clinical Chemistry Laboratory if there are any questions. Chloride 112(H) 98 - 107 mmol/L [facility] Carbon Dioxide 22 22 - 31 mmol/L [facility] Anion Gap 14 5 - 15 mmol/L [facility] Calcium 8.2(L) 8.5 - 10.5 mg/dL [facility] Protein, Total 5.6(L) 6.1 - 8.0 gm/dL [facility] Albumin 3.5 3.2 - 5.2 gm/dL [facility] Aspartate Aminotransferase 12 0 - 39 unit/L [facility] Alanine Aminotransferase 9 0 - 55 unit/L [facility] Alkaline Phosphatase 103 40 - 120 unit/L [facility] Bilirubin, Total 0.2 0.2 - 1.3 mg/dL [facility] Est Glomerular Filtration Rate 30(L) >=60 [facility] Comment: The reported eGFR should be multiplied by 1.2 for patients. The MDRD is not an appropriate measure of renal function for patients with body mass extremes or in patients with acute kidney failure. http://[employer]rapydia/DHnkdep http://[employer]/DHMCnkf Blood specimen (specimen) 05/26/2017 11:19 AM EST 05/26/2017 11:37 AM EST Narrative Resulting Agency Comment Spec In Lab Jax Mills MD CHEMISTRY ORDERABL ES Performing Organization Address [facility] Co de Phone Number [facility] [place] [address] * EKG 12 Lead (05/26/2017 11:16 AM EST) Ventricular rate 45 BPM MUSE SYSTEM Atrial Rate 45 BPM MUSE SYSTEM P-R Interval 156 ms MUSE SYSTEM QRS Duration 92 ms MUSE SYSTEM Q-T Interval 476 ms MUSE SYSTEM QTC Calculated (Bezet) 411 ms MUSE SYSTEM Calculated P [place] 68 degrees MUSE SYSTEM Calculated R [place] 64 degrees MUSE SYSTEM Calculated T [place] 57 degrees MUSE SYSTEM INTERPRETATION Marked sinus bradycardia Abnormal ECG When compared with ECG of 11-MAY-2017 21:18, No significant change was found Confirmed by MD Magaly, Ministerio ([id number]) on 05/26/2017 4:19:28 PM MUSE SYSTEM 05/26/2017 11:1 6 AM EST 05/26/2017 4:19 PM EST Jax Mills MD ECG ORDERABLES Performing Organization Address [facility] Co de Phone Number MUSE SYSTEM documented in this encounter Visit Diagnoses Diagnosis Renal mass Unspecified disorder of kidney and ureter Renal mass Unspecified disorder of kidney and ureter documented in this encounter Care Teams Decating Machine Operator Relationship Specialty Start Date End Date Carroll Fuentes DO [address] [place] [address] [address] [place] [address] PCP - General 09/23/11 10/20/22 documented as of this encounter
--- OUTSIDE RECORDS SUMMARY | 2024-04-22 11:09 | XMS_ITS | Encounter Summary ---
Author Organization [facility] [place] [address] Care Team Providers Care Copy Coordinator Name Role Phone AlfredoCarroll allison Primary Care Provider Encounter Details Date Type Department Care Team (Late st Contact Info) Description 06/23/2017 12:20 PM EST Laboratory Appointment Lab [address] [place] [address] Renal mass Social History Tobacco Use Types [...] Associated Diagnosis Comments BASIC METABOLIC PANEL Routine 06/23/2017 12:21 PM EST Renal mass documented in this encounter Results * (ABNORMAL) Basic Metabolic Panel (non-fasting) (06/23/2017 12:21 PM EST) Glucose 84 65 - 199 mg/dL [facility] Comment:Diabetes: >=200 mg/d L plus symptoms Blood Urea Nitrogen 55(H) 10 - 20 mg/dL [facility] Creatinine 2.55(H) 0.80 - 1.50 mg/dL [facility] Sodium 146(H) 135 - 145 mmol/L [facility] Potassium 5.7(H) 3.5 - 5.0 mmol/L [facility] Comment: Please note: ??Patients with WBC >100,000 may have falsely elevated Potassium levels. ??For accurate Potassium quantification in these patients send serum separator tube (gold top) for subsequent determinations. ??Contact the Clinical Chemistry Laboratory if there are any questions. Chloride 114(H) 98 - 107 mmol/L [facility] Carbon Dioxide 18(L) 22 - 31 mmol/L [facility] Anion Gap 14 5 - 15 mmol/L [facility] Calcium 8.5 8.5 - 10.5 mg/dL [facility] Est Glomerular Filtration Rate 26(L) >=60 [facility] Comment: The reported eGFR should be multiplied by 1.2 for patients. The MDRD is not an appropriate measure of renal function for patients with body mass extremes or in patients with acute kidney failure. http://[employer]/DHnkdep http://[employer]/DHMCnkf Blood specimen (specimen) 06/23/2017 12:21 PM EST 06/23/2017 12:32 PM EST Narrative Resulting Agency Comment Spec In Lab Jax Mills MD CHEMISTRY ORDERABL ES [facility] [place] [address] documented in this encounter Visit Diagnoses Diagnosis Renal mass Unspecified disorder of kidney and ureter documented in this encounter Care Teams Copy Coordinator Relationship Specialty Start Date End Date Carroll Fuentes DO [address] [place] [address] PCP - General 09/23/11 10/20/22 documented as of this encounter
--- OUTSIDE RECORDS SUMMARY | 2024-04-22 11:09 | XMS_ITS | Encounter Summary ---
Author Organization [facility] Address [facility] [place] [address] Care Team Providers Care Choker Hooker Name Role Phone AlfredoCarroll allison Primary Care Provider [phone] Reason for Visit * Auth/Cert Specialty Diagnoses / Procedures Referred By Shashi ko Referred To Contact Diagnoses Renal mass renal mass UNK Procedures PRO LAP, RADICAL NEPHRECTOMY @LAPAROSCOPY, RADICAL NEPHRECTOMY (WRVU 25.06) Referral ID Status Reason Start Date Expiration Date Visits Re quested Visits Authorized [id number] 1 1 Encounter Details Date Type Department Care Team (Latest Contact Info) Description 05/31/2017 8:52 AM [facility] - 06/02/2017 1:57 PM [facility] Hospital Encounter [address] [place] [id number] Gianna Tavarez MD [facility] [place] [address] Long-term (current) use of anticoagulants; Renal mass Discharge Disposition: Home Social History Tobacco Use [...] Sign Reading Time Taken Comments Blood Pressure 149/93 06/02/2017 11:59 AM EST Pulse 59 06/02/2017 11:59 AM EST Temperature 37 ??C (98.6 ??F) 06/02/2017 11:59 AM EST Respiratory Rate 18 06/02/2017 11:59 AM EST Oxygen Saturation 96% 06/02/2017 11:59 AM EST Inhaled Oxygen Concentration - - Weight 79.4 kg (175 lb) 05/31/2017 9:30 AM EST Height 177.8 cm (5' 10) 05/31/2017 9:30 AM EST Body Mass Index 25.11 05/31/2017 9:30 AM EST documented in this encounter Discharge Summaries * Devi Smith PA - 06/02/2017 12:36 PM EST Discharge Summary Patient Name: Adama Ram Patient Age: 56 y.o. Language: Latvian Race: White Ethnicity: Not nor Admit date: 05/31/2017 Discharge date: 06/02/2017 Attending Physician: Gianna Tavarez MD Discharge Physician: same Discharge Diagnoses (Hospital Problems) and Secondary Diagnoses (Chronic Problems): Active Hospital Problems Diagnosis ??? Renal mass Resolved Hospital Problems Diagnosis Date Resolved No resolved problems to display. Active Non-Hospital Problems Diagnosis ??? Gastrointestinal hemorrhage ??? Bradycardia ??? Left renal mass ??? TRISTIAN (acute kidney injury) ??? Weight loss ??? CKD (chronic kidney disease) stage 4, GFR 15-29 ml/min ??? 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 H/O [...] carcinoma of skin) ??? IgA nephropathy ??? Kidney replaced by transplant ??? Gout ??? Hypertension ??? Left leg DVT ??? Epilepsy ??? End stage renal disease Operations/Major Procedures: Procedure(s): @LAPAROSCOPY, RADICAL NEPHRECTOMY (WRVU 25.06) 05/31/2017 History of Presentation (from Dr. Tavarez's note 05/19/17): 56 yo male who underwent a renal transplantation in 2002 (), who was recently found to havenew renal masses in his [place] left kidney. He denies any flank pain or hematuria. He has lost ~ 20lbs over the last 2 months (lack of appetite). He denies any family hx of RCC. Renal function has been stable (GFR b/w 23-31 recently). Hospital Course: Patient was admitted electively to [facility] [place] via the same day surgery program and underwent the above procedure. He tolerated surgery well and was tranferred from the PACU to the general floor in good condition a few hours after surgery. Patient's hospital course was uncomplicated. He remained afebrile,with stable vital signs throughout his hospital stay. Today, on POD# 2 he has met all criteria for discharge home: his pain is well controlled with medications by mouth, he is tolerating a regular diet, is voiding spontaneously without difficulties, and is up and ambulating without complications. He has been deemed safe for discharge. He will continue with Lovenox bridging, will resume Coumadin on Thursday 06/07, and then follow up with PCP about anticoagulation plan (INR on 06/08). Vital Signs at Discharge: Weight: Wt Readings from Last 1 Encounters: 05/31/17 79.4 kg (175 lb) Height: Ht Readings from Last 1 Encounters: 05/31/17 177.8 cm (5' 10) BMI: Body mass index is 25.11 kg/(m^2). Last value Range last 24 hrs Temperature Temp: 37 ??C (98.6 ??F) Temp: [36.3 ??C (97.3 ??F)-37.2 ??C (99 ??F)] Heart Rate Heart Rate: 59 Heart Rate: [56-62] Blood Pressure BP: (!) 149/93 BP: (118-159)/(85-102) Respiratory Rate Resp: 18 Resp: [10-18] SpO2 SpO2: 96 % SpO2: [91 %-97 %] Exam at Discharge: General: NAD CV: RRR Pulm: CTAB Abd: soft, appropriately tender, nondistended Incision: c/d/i Ext: warm, well perfused, no edema Functional and Cognitive Status: Ambulating and cognitively intact. Important Studies and Lab Data: Lab Results Component Value Date WBC 6.4 06/02/2017 RBC 3.17 (L) 06/02/2017 HGB 9.4 (L) 06/02/2017 HCT 29.8 (L) 06/02/2017 MCV 94.0 (H) 06/02/2017 MCH 29.7 06/02/2017 MCHC 31.5 (L) 06/02/2017 PLATELET 287 06/02/2017 RDWCV 15.9 (H) 06/02/2017 Lab Results Component Value Date NA 135 06/02/2017 K 5.0 06/02/2017 CL 98 06/02/2017 CO2 25 06/02/2017 BUN 36 (H) 06/02/2017 CREATININE 2.19 (H) 06/02/2017 GLUCOSE 117 06/02/2017 GLUCFASTING 100 (H) 11/26/2016 CALCIUM 8.0 (L) 06/02/2017 Studies: None Pending Studies and Lab Data: Surgical pathology will be discussed by Dr. Tavarez when available. Discharge Conditions/Prognosis: Stable Discharge to: Home Updated Allergies/ADRs: Allergies Allergen Reactions ??? Benazepril [...] Medications: Your Medications New Medications Dose Details docusate sodium 100 mg Cap Commonly known as: COLACE Take 1 capsule by mouth 2 times daily as needed for Constipation. 100 mg Refills: 0 enoxaparin 40 mg/0.4 mL Syrg Commonly known as: LOVENOX Inject 0.3 mLs subcutaneously nightly. As instructed by Dr. Fuentes. You have refills at [facility]. 30 mg Refills: 0 Continued medications with new dosing Dose Details acetaminophen 500 mg Tab Commonly known as: TYLENOL Take 2 tablets by mouth every 6 hours as needed for Pain. Do not exceed 4000 mg per 24 hours. What changed: - when to take this - reasons to take this - additional instructions 1000 mg Refills: 0 dilTIAZem 120 mg Cp24 Commonly known as: CARTIA XT Take 1 capsule by mouth daily. What changed: See the new instructions. 120 mg Quantity: 90 capsule Refills: 3 warfarin 5 mg Tab Commonly known as: COUMADIN Take 1 tablet (5 mg) by mouth daily. PLEASE RESTART THIS MEDICINE ON 06/07. GO FOR INR ON 06/08. FOLLOW UP WITH DR FUENTES'S OFFICE. What changed: additional instructions Refills: 0 Continued medications, unchanged Dose Details allopurinol 100 mg Tab Commonly known as: ZYLOPRIM Take 1 and 1/2 tablet daily. Quantity: 45 tablet Refills: 11 hydrALAZINE 50 mg Tab Commonly known as: APRESOLINE Take 1 tablet by mouth 2 times daily. 50 mg Quantity: 180 tablet Refills: 3 levETIRAcetam 500 mg Tab Commonly known as: KEPPRA Take 500 mg by mouth 2 times daily. Take 500 mg in the morning and 1,000 mg at night. 500 mg Refills: 0 levothyroxine 88 mcg Tab Commonly known as: SYNTHROID Take 88 mcg by mouth daily. 88 mcg Refills: 0 meTOPROLOL tartrate 50 mg Tab Commonly known as: LOPRESSOR Take 50 mg by mouth 3 times daily. 50 mg Refills: 0 multivitamin Cap Take 1 capsule by mouth daily. 1 capsule Refills: 0 mycophenolate 250 mg Cap Commonly known as: CELLCEPT Take 1 capsule by mouth 2 times daily. Kidney Transplant Z94.0. Transplant Date; 11-26-02 250 mg Quantity: 180 capsule Refills: 11 pantoprazole 20 mg Tbec Commonly known as: PROTONIX Take 40 mg by mouth daily. 40 mg Refills: 0 sodium bicarbonate 650 mg Tab Take 1 tablet by mouth 2 times daily. 650 mg Quantity: 60 tablet Refills: 0 tacrolimus 1 mg Cap Commonly known as: PROGRAF Take 1 capsule twice daily. Kidney transplant 11/26/2002. ICD code Z94.0 Quantity: 60 capsule Refills: 11 Smoking Status at Discharge: History Smoking Status ??? Former Smoker ??? Packs/day: 0.25 ??? Years: 1.50 ??? Types: Cigarettes ??? Quit date: 12/03/2000 Smokeless Tobacco ??? Former User ??? Quit date: 04/14/2001 Instructions Given to Patient at Discharge: Patient Instructions UROLOGY NEPHRECTOMY DISCHARGE INSTRUCTIONS Call your doctor for: ??? fevers greater than 100.5 ??? severe nausea or vomiting ??? increasing pain not controlled by pain medications ??? increasing redness or drainage from incisions ??? decreased urine output, inability to urinate ??? Burning with urination or urinary frequency The number for questions is before 5 PM weekdays and after 5 PM and weekends, and ask for telephone services sales representative Urologist. Coumadin and Lovenox: Please continue to take Lovenox 30 mg daily as prescribed by Dr. Fuentes. Please restart your regular dose of Coumadin on Wednesday, 06/07. Dr. Fuentes's office would like for you to have your INR checked on Wednesday, 06/08, at [facility]. They will advise you further on Lovenox andCoumadin dosing. Your [facility] in [facility] says that you have a refill on your Lovenox that is good for 8 more syringes after you finish the 4 that you have at home. Special Considerations for Solitary Kidney: Do not take megavitamins, herbal products, and NSAID pain relievers (such as ibuprofen, Motrin, Advil, naproxen, Aleve), unless instructed otherwise by your Physician. Please be sure that you take adequate fluids with all medication. It is important to discuss any medications, dietary supplements with your physician before startingthem. Please be sure to remind all prescribing physicians that you have one kidney. Activity level: No heavy lifting greater than 10 pounds (about equal to a full gallon jug) for the next 4-6 weeks or until cleared to do so at follow-up appointment. Otherwise activity as tolerated by comfort level. Take frequent short walks throughout the day. There is no such thing as too much walking. Diet: You may resume your regular diet as tolerated. Drink plenty of fluids. Bowel Meds: The major problem most patients have after surgery is return of bowel function, gas andconstipation. Take stool softeners as directed until bowels return to normal. If needed, take a laxative such as Miralax, Senna, Dulcolax. Generic is fine. Driving: No driving while still taking opioid pain medications (wait at least 6- 8 hours since last dose). No driving if you are still sore from surgery as it may limit your ability to react quickly if necessary. Shower/Bath: You may shower and get incision(s) wet. Pat dry immediately following your shower. Do not scrub them vigorously for the next 2-3 weeks. Do not soak incision(s) (i.e. soaking in bath, hottub, or swimming) until told you may do so by a doctor, as this may promote a wound infection. Wound Care: You may cover wounds with sterile gauze as needed to prevent incision rubbing on clothes or for any seepage. Your sutures are absorbable and do not need to be removed. Your incision is covered by a layer of surgical glue which will peel off on its own. Do not pick it off. Urology Follow up Appointments: Your surgical follow-up appointment will be scheduled with Dr. Tavarez in approximately 2-3 weeks with lab work. Appointment will be mailed to you. Please call (clinic number for appointments) to confirm date and time of your appointment if you do not receive it. General Instructions None Future Appointments and Orders Future Appointments Provider Department Dept Phone 06/23/2017 12:20 PM LAB, THREE L Lab 3L [facility] [phone] 06/23/2017 1:20 PM Gianna Tvaarez MD Urology at [place] [phone] 06/28/2017 8:40 AM LAB, [address] [facility] [phone] 06/28/2017 9:40 AM Anup Hawkins MD Transplant at [place] [phone] 07/22/2017 3:00 PM Chanel Smith MD Dermatology at [facility] [phone] 11/17/2017 9:20 AM LAB, THREE L Lab 3L [facility] [phone] 11/17/2017 10:40 AM Anup Hawkins MD Transplant at [place] [phone] Future Orders Complete By Expires Basic Metabolic Panel (non-fasting) [LAB15 Custom] 06/16/2017 (Approximate) 12/16/2017 Process Instructions: INCLUDES: Calcium, BUN, Creat, GFR, Glucose, Lytes Scheduling Instructions: Comments: Questions: Primary Care Provider: Carroll Fuentes DO [phone] Follow-up Recommendations for Providers: Please see discharge instructions. Call your doctor if: Please call your doctor immediately or go to an Emergency Department if you notice worsening pain not controlled by pain medications, uncontrolled headache, vision changes, chest pain, difficulty breathing, persistent nausea and vomiting, new redness or swelling in any extremities, new onset weakness or changes in sensation, or for any fevers greater than 101.3 F. Your care was managed by the Urology Team at [facility]. If you have any questions or concerns, please feel free to contact us. Provider Contact Information: Urology Clinic: [facility] [place] [place] (after business hours): Associated attestation - Gianna Tavarez MD - 06/02/2017 12:52 PM EST I have seen the patient and reviewed the PA's above history and I agree with the details as written. The assessment and plan were formulated in discussion with me and I agree with them as documented. documented in this encounter Discharge Instructions * Patient Instructions* Devi Smith PA - 06/02/2017 8:55 AM EST UROLOGY NEPHRECTOMY DISCHARGE INSTRUCTIONS Call your doctor for: ??? fevers greater than 100.5 ??? severe nausea or vomiting ??? increasing pain not controlled by pain medications ??? increasing redness or drainage from incisions ??? decreased urine output, inability to urinate ??? Burning with urination or urinary frequency The number for questions is before 5 PM weekdays and after 5 PM and weekends, and ask for telephone services sales representative Urologist. Coumadin and Lovenox: Please continue to take Lovenox 30 mg daily as prescribed by Dr. Fuentes. Please restart your regular dose of Coumadin on Wednesday, 06/07. Dr. Fuentes's office would like for you to have your INR checked on Wednesday, 06/08, at [facility]. They will advise you further on Lovenox andCoumadin dosing. Your [facility] in [facility] says that you have a refill on your Lovenox that is good for 8 more syringes after you finish the 4 that you have at home. Special Considerations for Solitary Kidney: Do not take megavitamins, herbal products, and NSAID pain relievers (such as ibuprofen, Motrin, Advil, naproxen, Aleve), unless instructed otherwise by your Physician. Please be sure that you take adequate fluids with all medication. It is important to discuss any medications, dietary supplements with your physician before startingthem. Please be sure to remind all prescribing physicians that you have one kidney. Activity level: No heavy lifting greater than 10 pounds (about equal to a full gallon jug) for the next 4-6 weeks or until cleared to do so at follow-up appointment. Otherwise activity as tolerated by comfort level. Take frequent short walks throughout the day. There is no such thing as too much walking. Diet: You may resume your regular diet as tolerated. Drink plenty of fluids. Bowel Meds: The major problem most patients have after surgery is return of bowel function, gas andconstipation. Take stool softeners as directed until bowels return to normal. If needed, take a laxative such as Miralax, Senna, Dulcolax. Generic is fine. Driving: No driving while still taking opioid pain medications (wait at least 6- 8 hours since last dose). No driving if you are still sore from surgery as it may limit your ability to react quickly if necessary. Shower/Bath: You may shower and get incision(s) wet. Pat dry immediately following your shower. Do not scrub them vigorously for the next 2-3 weeks. Do not soak incision(s) (i.e. soaking in bath, hottub, or swimming) until told you may do so by a doctor, as this may promote a wound infection. Wound Care: You may cover wounds with sterile gauze as needed to prevent incision rubbing on clothes or for any seepage. Your sutures are absorbable and do not need to be removed. Your incision is covered by a layer of surgical glue which will peel off on its own. Do not pick it off. Urology Follow up Appointments: Your surgical follow-up appointment will be scheduled with Dr. Tavarez in approximately 2-3 weeks with lab work. Appointment will be mailed to you. Please call (clinic number for appointments) to confirm date and time of your appointment if you do not receive it. documented in this encounter Medications at Time [...] daily as needed for Constipation. 06/02/2017 07/19/2018 enoxaparin (LOVENOX) 40 mg/0.4 mL Syringe Inject 0.3 mLs subcutaneously nightly. As instructed by Dr. Fuentes. You have refills at [facility] in [facility]. 06/02/2017 06/28/2017 warfarin (COUMADIN) 5 mg Tablet Take 1 [...] mouth daily. 08/17/2017 mycophenolate (CELLCEPT) 250 mg CapsuleIndications: S/P kidney transplant Take 1 capsule by mouth 2 times daily. Kidney Transplant Z94.0. Transplant Date; 11-26-02 180 capsule 11 05/16/2017 2018 sodium bicarbonate 650 mg Tablet Take 1 tablet by mouth 2 times daily. 60 tablet 05/16/2017 06/28/2017 hydrALAZINE (APRESOLINE) 50 mg Tablet Take 1 tablet by mouth 2 times daily. 180 tablet 3 03/09/2017 12/29/2017 allopurinol (ZYLOPRIM) 100 mg TabletIndications:H igh level of uric acid in blood Take 1 and 1/2 tablet daily. 45 tablet 11 01/07/2017 07/23/2017 multivitamin Capsule Take 1 capsule by mouth daily. 2018 levothyroxine (SYNTHROID) 100 mcg Tablet Take 100 mcg by mouth daily. 2018 metoprolol tartrate (LOPRESSOR) 50 mg tablet Take 50 mg by mouth 3 times daily. 12/03/2010 10/20/2017 documented as of this encounter Progress Notes * Krysta Cardona RN - 06/02/2017 1:17 PM EST In reviewing discharge instructions with patient, he stated that he gets his daily Lovenox injections at [facility], in infusion or the lab, usually about 2pm. This RN unable to reach anyone in the infusion or lab departments, messages left. PANCHITO Aquino updated on situation. RN Museum Technician Anastasia Frey attempting to reach someone directly to determine Lovenox injections can be given consistently at [facility] as patient describes, including holiday and weekend. 1330: Addendum. Nursing unable to verify with [facility] that anyone there gives patient his daily Lovenox injections. PANCHITO Smith made aware and accompanied this RN and RN Museum Technician to patient's room to discuss further. Patient's friend Jenny here to provide ride home and stated that she can give the patient his daily Lovenox injections as she gave herself (IM) injections for a number of years. Patient and Jenny observed this RN give today's injection and had no questions regarding procedure. Additionally, the AVS and discharge summary were reviewed in their entirety and patient verbalized that he understands the information and has no followup questions. He highlighted areas of information as we went through the instructions. The Lovenox bridging plan was emphasized and patient verbalized understanding that he is to start Coumadin on Wednesday and have INR drawn Wednesday, with ultimate anticoagulation plan to be determined byPCP. Phone numbers included in discharge information and patient and friend Jenny were urged to call with any questions or concerns that arise. Voiding without difficulty, tolerating regular diet without N/V. Had BM this am. Ambulating independently without AD, steady gait. Tylenol effective for pain management. Incision/lap sites IRLANDA, well approximated, no erythema or drainage. * Jenny French RN - 06/02/2017 12:15 AM EST Luna Cerda MD notified of BP 158/100 (manual and automatic). Requested PRN hydralazine to be given. 5 mg given once with no effect (139/101). Second dose given, BP 140/98. RDO * Jesenia Radford - 06/01/2017 2:55 PM EST Regional Anesthesia Progress Note Date of Encounter: 06/01/2017 Responsible Attending: Oneal Javier Staff / Associate Provider: JESENIA RADFORD MD ID: Patient is POD# 1 s/p nephrectomy for which the patient received a left TAP nerve block for post-operative pain control. Subjective: Today the patient has excellent pain control and at present states pain is 1 out of 10.Patient has been able to tolerate PO analgesics and an oral diet without nausea or vomiting. Patient is without any complaints this morning. Objective: Temp: [36.4 ??C (97.5 ??F)-36.9 ??C (98.4 ??F)] Heart Rate: [53-71] Resp: [11-] BP: (118-153)/(75-97) SpO2: [92 %-99 %] Heart Rate from SPO2: [66 bpm-70 bpm] Gen: Patient resting comfortably No bruising, erythema, swelling or discharge at insertion site. Sensory: Sensation is intact to light touch over abdomen No evidence of local anesthetic toxicity Coags: No results found for: INR, PT, PTT Meds: Medication list reviewed Assessment: Peripheral nerve block for post-operative pain control, currently with adequate pain control. Block appears to be resolving appropriately. Plan: ?? Continue current management per primary service. ?? Patient was instructed to contact Regional Anesthesia Team ([id number]) for any unresolved sensory or motor deficits. ?? Thank you for the opportunity to have participated in the care of this patient. JESENIA RADFORD MD Regional Team pager [phone] * Devi Smith PA - 06/01/2017 8:53 AM EST Urology IP Progress Note ID: Adama Ram is a 56 y.o. male with hx of donor kidney transplant in 2002 s/p LEFT laparoscopic radical nephrectomy for renal masses in his [place] left kidney POD#1 Events over the last 24 hrs: Denies pain, turned down Tylenol Has not been OOB Tolerating clears Objective: Temp: [36.4 ??C (97.5 ??F)-36.9 ??C (98.4 ??F)] Heart Rate: [51-71] Resp: [11-21] BP: (118-153)/(75-96) SpO2: [94 %-99 %] Heart Rate from SPO2: [66 bpm-70 bpm] I/O last 3 completed shifts: In: 3248 [P.O.:240; I.V.:3008] Out: 2465 [Urine:2365; Blood:100] Physical Exam Gen- NAD, resting comfortably Resp- nonlabored breathing Abd- soft, appropriately tender, nondistended Incisions - c/d/i Ext- warm and well perfused, no edema Labs Recent Labs 06/01/17 0327 05/31/17 1517 05/31/17 0906 WBC 4.7 6.6 -- HGB 8.7* 8.6* -- HCT 28.7* 28.4* -- PLATELET 237 254 -- NA 142 148* -- K 5.4* 5.4* -- CL 107 112* -- CO2 24 22 -- BUN 36* 39* -- CREATININE 2.16* 2.31* -- INR -- -- 1.1 MAGNESIUM 0.72 0.65* -- PHOS 3.7 3.4 -- GLUCOSE 104 117 -- Assessment/Management/Plan: Adama Ram is a 56 y.o. male who presented with hx of donor kidney transplant in 2002 s/p LEFT laparoscopic radical nephrectomy for renal masses in his [place] left kidney POD#1. Doing well post-op. Goals today are pain management, ambulating, Escobar removal, and advancing diet. +Hyperkalemic, will stop LR and recheck tomorrow. Will continue tacrolimus and Cellcept and will alert Transplant service that pt is here. Neuro: Tylenol scheduled. Home Keppra. CV: currently stable, on home diltiazem, hydralazine, metoprolol Resp: stable on room air GI: Colace, Protonix. Zofran prn. : continue monitoring UOP, Escobar removal today FEN: replace lytes prn, HLIV, regular diet. Continue home sodium bicarb. Endo: Home Synthroid, allopurinol. Heme: Stable Hgb. continue ppx Lovenox - plan to transition to therapeutic dose tomorrow. ID: afebrile Prophylaxis: Ppx Lovenox, Protonix, SCDs, encourage ambulation Dispo: stable on floor status Code status: Full code * Caitlin Vicente RN - 05/31/2017 6:38 PM EST Patient arrived from PACU to room 210A via bed. Appears asleep, vitals stable as documented, complaints of some nausea. Will check MD orders and continue to monitor. Report received from SAVANNA Wong prior to patient's arrival. * Tulio Mckenna RN - 05/31/2017 4:34 PM EST 1634: Break relief; VSS, intermittent nausea.' 1703: Pt continues to report nausea. documented in this encounter H&P Notes * Danisha Haines - 05/31/2017 9:40 AM EST Patient Name: Adama Ram Age: 56 y.o. Date of : 1960 Attending Provider: Gianna Tavarez MD Adama Ram is a 56 y.o. male with history of donor kidney transplant in 2002, presenting for planned LEFT laparoscopic radical nephrectomy for renal masses in his [place] left kidney. No recent changes to health status since he saw Dr. Tavarez in clinic on 05/19/2017. He is on warfarinfor a DVT that happened in 2002. He has held warfarin, and has been on a lovenox bridge. His last dose of lovenox was last night. He has 4 more lovenox injections at home for the post-operative period. ALLERGIES Allergies Allergen Reactions ??? Benazepril Hcl ??? Codeine Other (See Comments) Patient does not know reaction ??? Hydrochlorothiazide ??? Pollen Extracts Sneezing/runny nose MEDICATIONS No current facility-administered medications on file prior to encounter. Current Outpatient Prescriptions on File Prior to Encounter Medication Sig Dispense Refill ??? levETIRAcetam (KEPPRA) 500 mg Tablet Take 500 mg by mouth 2 times daily. Take 500 mg in the morning and 1,000 mg at night. ??? pantoprazole (PROTONIX) 20 mg Tablet, Delayed Release (E.C.) Take 40 mg by mouth daily. ??? mycophenolate (CELLCEPT) 250 mg Capsule Take 1 capsule by mouth 2 times daily. Kidney Transplant Z94.0. Transplant Date; 11-26-02 180 capsule 11 ??? warfarin (COUMADIN) 5 mg Tablet Take 1 tablet (5 mg) by mouth daily. 60 tablet 11 ??? sodium bicarbonate 650 mg Tablet Take 1 tablet by mouth 2 times daily. 60 tablet 0 ??? hydrALAZINE (APRESOLINE) 50 mg Tablet Take 1 tablet by mouth 2 times daily. 180 tablet 3 ??? CARTIA XT 120 mg Capsule, Sust. Release 24 hr take 1 capsule by mouth once daily 90 capsule 0 ??? allopurinol (ZYLOPRIM) 100 mg Tablet Take 1 and 1/2 tablet daily. 45 tablet 11 ??? multivitamin Capsule Take 1 capsule by mouth daily. ??? acetaminophen (TYLENOL) 500 mg Tablet Take 2 tablets by mouth every 8 hours. 30 tablet 1 ??? levothyroxine (SYNTHROID) 88 mcg tablet Take 88 mcg by mouth daily. ??? metoprolol tartrate (LOPRESSOR) 50 mg tablet Take 50 mg by mouth 3 times daily. PHYSICAL EXAM Temp: -- Heart Rate: -- Resp: -- BP: -- SpO2: -- Heart Rate from SPO2: -- GEN: Resting comfortably in bed, conversant, NAD. CHEST: Normal work of breathing, CTA-B CV: Sinus rhythm. Diastolic murmur. ABD: Soft, non-tender, non-distended. Well healed RLQ surgical scar EXTR: Moving spontaneously. SKIN: Warm and dry. NEURO: Alert and follows commands. ASSESSMENT / PLAN 56 y.o. male with history of donor kidney transplant in 2002, presenting for planned LEFT laparoscopic radical nephrectomy for renal masses in his [place] left kidney. Patient appears fit forsurgery. The details, alternatives, risks, and benefits of the procedure were reviewed, and the dimas ent wishes to proceed. Informed consent has been obtained. All questions were answered to the patient's satisfaction. Proceed with surgery. The patient's history and physical exam have been reviewed and completed. There has been no interval change from that of the pre-operative history and physical exam performed within the last 30 days (05/19/[address] Tavarez). Associated attestation - Gianna Tavarez MD - 05/31/2017 9:43 AM EST I have seen the patient and reviewed the resident's above history and I agree with the details as written. The assessment and plan were formulated in discussion with me and I agree with them as documented. documented in this encounter Miscellaneous Notes * Plan of Care - Jenny French RN - 06/02/2017 3:39 AM EST Problem: Patient Care Overview Goal: Plan of Care Review Outcome: Ongoing (Interventions Implemented as Appropriate) 06/02/17330 Coping/Psychosocial Plan Of Care Reviewed With patient Plan of Care Review Progress progress toward functional goals as expected OUTCOME EVALUATION NOTE: OUTCOME SUMMARY: No request for PRN pain medication. Rating pain 0-2/10 through shift. LAP sites dry, well approximated. + bowel sounds, + flatus, no c/o nausea. Tolerating regular diet. SBA in halls. High BP treatedw IV hydralazine. PLAN MOVING FORWARD: Prepare for d/c to home INDIVIDUALIZED FALL PREVENTION INTERVENTIONS: High risk Patient-specific fall risk factors per assessment: [current deficits]: Acute pain, low O2 sat on RAat night, Assistance [level of assistance required for transfers and ambulation]: SBA w walker Supervision [direct monitoring required during toileting and ADLs]: Eyes on Surveillance [continuous indirect monitoring]: NKE at bedside, purposeful rounding Patient-specific fall prevention interventions for sensory deficits provided, if applicable: N/A CPG GOAL OUTCOME EVALUATION: Goal: Individualization & Mutuality Outcome: Ongoing (Interventions Implemented as Appropriate) 06/02/17 033 Individualization Patient Specific Goals adequate urine output Goal: Fall Prevention-Safe Patient Handling Outcome: Ongoing (Interventions Implemented as Appropriate) 06/01/17 193 Restraint Interventions Safety Promotion/Fall Prevention nonskid shoes/slippers when out of bed;fall prevention program maintained;activity supervised Positioning Body Position independent Daily Care Interventions Self-Care Promotion independence encouraged Toribio Fall Risk History of Falling 0 Secondary Diagnosis 15 Ambulatory Aids 15 Intravenous Therapy/Heparin/Saline Lock 20 Gait/Transferring 0 Mental Status 0 Score 50 OTHER Toribio Fall Risk High Goal: Infection Control Outcome: Ongoing (Interventions Implemented as Appropriate) 06/01/17 1930 Safety Interventions Isolation Precautions standard precautions maintained Infection Prevention rest/sleep promoted Coping Strategies Supportive Measures active listening utilized;verbalization of feelings encouraged Goal: Discharge Needs Assessment Outcome: Ongoing (Interventions Implemented as Appropriate) 06/02/17 033 Discharge Needs Assessment Equipment Needed After Discharge none Activity/Self Care Review of Systems Equipment Currently Used at Home none Problem: Urine Elimination, Impaired (Adult) Goal: Identify Related Risk Factors and Signs and Symptoms Related risk factors and signs and symptoms are identified upon initiation of Human Response Clinical Practice Guideline (CPG) Outcome: Outcome (s) achieved Date Met: 06/02/17 06/02/17330 Urine Elimination, Impaired Urine Elimination, Impaired: Related Risk Factors procedure/surgery related Signs and Symptoms (Urine Elimination Impaired) impaired renal function Goal: Effective Urinary Elimination Patient will demonstrate the desired outcomes by discharge/transition of care. Outcome: Outcome (s) achieved Date Met: 06/02/17 06/02/17330 Urine Elimination, Impaired (Adult) Effective Urinary Elimination achieves outcome * Initial Assessments - Padmini Ruiz RN - 06/01/2017 3:28 PM EST Office of Care Management Initial Assessment Padmini Ruiz RN reviewed record and discussed patient with Care Team. Source of Information: Patient, mother Ilda and chart review. Introduced self/reviewed role; services accepted. Reason for Hospitalization: Reason for Admission as Stated by Patient: I had an organ taken out. Procedure(s): @[facility] ??Anesthesia: General ??Findings: 1. One renal vein, one renal artery, one ureter 2. Uncomplicated left radical nephrectomy with adrenal sparing. Pt sitting up in bed, eating lunch which consisted of a sandwich, salad, fruit salad and juice. Pt tolerating well; had no complaints of pain. Escobar catheter removed; waiting to have urge to void. Past Medical History: Diagnosis Date ??? BP (high blood pressure) ??? DVT (deep venous thrombosis) ??? Gout ??? Hypertension ??? Kidney problem ??? Pneumonia ??? TBI (traumatic brain injury) 1980 Hospitalizations Within the Past 30 Days: no Anticipated Length Of Stay (If known): Expected Length of Hospitalization: 4 Current Decision-Making Capacity: Pt has a history of TBI at age 19. He has capacity to understand,answer and engage in conversation but noted to take a moment to think of his responses. Advance Care Planning: Advance Directives scanned from 2011; pt's POA is his brother Lucas Ram who resides in [place]; pt's 86 year old mother Ilda listed as second POA. Current Coping/Education/Information Needs: Seems to be coping well with no complaints at time of interview. Current Functional Ability: SBA Functional Status Prior to Admission: Independent. Home Environment: Pt lives in a second floor apartment building located in [facility]. Pt's mother Ilda lives two doors down. Pt described his apartment as quite cluttered but there is a tablein the basement of the building that we can put stuff on that we may never use again, to be donated. I just don't know if I might need the item again. Pt admits to living amongst a lot of clutter, borderline hoarder. I spoke with pt's mother Ilda who described pt's apartment as a dump! Social & Family Supports/Community Resources: Pt well supported by his mother, neighbor Pastora. Behavioral Health History: TBI; history of Grand Mal seizures. Substance Use/Abuse: Did not ask. Other Pertinent/Service Specific Information: Patient has been unemployed since December of this year. He is living off his savings. Mother Ilda informed me that she has a slush fund I can draw on anytime to help him out. Health/Prescription Coverage: Primary Insurance: MEDICAID [place] Secondary Insurance: N/A Prescription Coverage: Yes. Able to manage Rx co-pays. Preferred Pharmacy: [facility] in [place], [place]. Other: na Primary Care Provider: Carroll Fuentes DO [phone] Patient/Caregiver Goals of Treatment: Effective pain control; Continue to tolerate regular diet; able to urinate on own with adequate output. Potential Needs for Transition of Care: Rehab/SNF: na Home Health: na DME: na Dialysis: na Community Resources: na Transportation: via car with friend Maida ballesteros. She can be reached at . Other: na Anticipated Barriers to Discharge/Special Considerations: None Plan: Continue to ambulate four times a day; return of normal bowel and bladder function. Home in care of parent. A member of the Care Management team will continue to monitor progress, follow for continuity of care and assist with transition of care planning. Padmini Ruiz RN, BSN Mental Retardation Aide-[address] [place] Pager # [phone] [email or web address] * Plan of Care - Leslie Turner RN - 06/01/2017 3:19 PM EST Problem: Patient Care Overview Goal: Plan of Care Review Outcome: Ongoing (Interventions Implemented as Appropriate) 06/01/17 1512 Coping/Psychosocial Plan Of Care Reviewed With patient Plan of Care Review Progress improving OUTCOME EVALUATION NOTE: OUTCOME SUMMARY: Adama rates his pain up to 5/10 with coughing/deep breathing given tylenol & 5 mg of oxy; Instructed on IS demonstrates fair technique; Ambulated 2x; Eating well; Escobar dc'd and UOP adequate PLAN MOVING FORWARD: Ambulate; Monitor UOP, Labs INDIVIDUALIZED FALL PREVENTION INTERVENTIONS: High fall risk Patient-specific fall risk factors per assessment: [current deficits]: Surgery; Generalized weakness; Secondary dx Assistance [level of assistance required for transfers and ambulation]: SBA with FWW Supervision [direct monitoring required during toileting and ADLs]: Indep Surveillance [continuous indirect monitoring]: Call daniels in reach at all times; Bed in lowest position; tubing and lines secured prior to ambulation; Environmental modifications: floor clear from obstacles, lighting appropriate for tasks, personal items within reach; Bed and chair alarms in place and audible if appropriate. Comfort and safety measures maintained Patient-specific fall prevention interventions for sensory deficits provided, if applicable: [X] No CPG GOAL OUTCOME EVALUATION: Goal: Individualization & Mutuality Outcome: Ongoing (Interventions Implemented as Appropriate) 06/01/17 1512 Mutuality/Individual Preferences What Anxieties, Fears or Concerns Do You Have About Your Health or Care? none What Questions Do You Have About Your Health or Care? none What Information Would Help Us Give You More Personalized Care? none Goal: Fall Prevention-Safe Patient Handling Outcome: Ongoing (Interventions Implemented as Appropriate) 06/01/17 0730 06/01/17 1512 Restraint Interventions Safety Promotion/Fall Prevention -- activity supervised;fall prevention program maintained;muscle strengthening facilitated;nonskid shoes/slippers when out of bed Musculoskeletal Interventions Muscle Strengthening -- activity/mobility promoted Positioning Body Position -- independent Activity and Safety Assistive Device -- Front wheel walker Daily Care Interventions Self-Care Promotion -- independence encouraged Toribio Fall Risk History of Falling 0 -- Secondary Diagnosis 15 -- Ambulatory Aids 15 -- Intravenous Therapy/Heparin/Saline Lock 20 -- Gait/Transferring 0 -- Mental Status 0 -- Score 50 -- OTHER Toribio Fall Risk High -- Goal: Infection Control Outcome: Ongoing (Interventions Implemented as Appropriate) 06/01/17 1512 Safety Interventions Isolation Precautions standard precautions maintained Infection Prevention barrier precautions utilized;environmental surveillance performed;rest/sleep promoted;cohorting utilized Coping Strategies Supportive Measures active listening utilized;goal setting facilitated Goal: Discharge Needs Assessment Outcome: Ongoing (Interventions Implemented as Appropriate) 06/01/17 1512 Discharge Needs Assessment Concerns To Be Addressed adjustment to diagnosis/illness concerns Equipment Needed After Discharge none Discharge Disposition still a patient;home or self-care Activity/Self Care Review of Systems Equipment Currently Used at Home none Living Environment Transportation Available family or friend will provide Problem: Urine Elimination, Impaired (Adult) Goal: Identify Related Risk Factors and Signs and Symptoms Related risk factors and signs and symptoms are identified upon initiation of Human Response Clinical Practice Guideline (CPG) Outcome: Ongoing (Interventions Implemented as Appropriate) 06/01/17 1512 Urine Elimination, Impaired Urine Elimination, Impaired: Related Risk Factors disease process;medication side effects;procedure/surgery related Signs and Symptoms (Urine Elimination Impaired) impaired renal function;lacks urge to void Goal: Effective Urinary Elimination Patient will demonstrate the desired outcomes by discharge/transition of care. Outcome: Ongoing (Interventions Implemented as Appropriate) 06/01/17 1512 Urine Elimination, Impaired (Adult) Effective Urinary Elimination making progress toward outcome * Plan of Care - Fnumi, Radha Chacko RN - 06/01/2017 6:16 AM EST Problem: Patient Care Overview Goal: Plan of Care Review Outcome: Ongoing (Interventions Implemented as Appropriate) 06/01/17 0610 Coping/Psychosocial Plan Of Care Reviewed With patient Plan of Care Review Progress improving OUTCOME EVALUATION NOTE: OUTCOME SUMMARY: Adama rested well overnight with minimal pain reported. Tylenol has been sufficiently managing pain.Escobar in place. Not OOB yet; goal set to get OOB and ambulate this morning. PLAN MOVING FORWARD: Continue with plan of care INDIVIDUALIZED FALL PREVENTION INTERVENTIONS: Patient-specific fall risk factors per assessment: [current deficits]: Weakness, Iv lines, escobar cath Assistance [level of assistance required for transfers and ambulation]: 1 person assist with FWW Supervision [direct monitoring required during toileting and ADLs]: Eyes on Surveillance [continuous indirect monitoring]: NKE, hourly rounding Patient-specific fall prevention interventions for sensory deficits provided, if applicable: Bed alarm CPG GOAL OUTCOME EVALUATION: Goal: Individualization & Mutuality Outcome: Ongoing (Interventions Implemented as Appropriate) 05/31/172101 Mutuality/Individual Preferences What Anxieties, Fears or Concerns Do You Have About Your Health or Care? none What Questions Do You Have About Your Health or Care? none What Information Would Help Us Give You More Personalized Care? none Goal: Fall Prevention-Safe Patient Handling Outcome: Ongoing (Interventions Implemented as Appropriate) 05/31/172103 Toribio Fall Risk History of Falling 0 Secondary Diagnosis 15 Ambulatory Aids 15 Intravenous Therapy/Heparin/Saline Lock 20 Gait/Transferring 10 Mental Status 0 Score 60 OTHER Toribio Fall Risk High Restraint Interventions Safety Promotion/Fall Prevention activity supervised;fall prevention program maintained;muscle strengthening facilitated;nonskid shoes/slippers when out of bed;safety round/check completed;toileting scheduled Positioning Body Position independent Goal: Infection Control Outcome: Ongoing (Interventions Implemented as Appropriate) 05/31/172103 Safety Interventions Isolation Precautions standard precautions maintained Infection Prevention environmental surveillance performed;rest/sleep promoted Coping Strategies Supportive Measures active listening utilized;counseling provided;goal setting facilitated;positivereinforcement provided;problem solving facilitated;relaxation techniques promoted;self-care encouraged;self-reflection promoted;self-responsibility promoted;verbalization of feelings encouraged Goal: Discharge Needs Assessment Outcome: Ongoing (Interventions Implemented as Appropriate) 06/01/17609 Discharge Needs Assessment Concerns To Be Addressed denies needs/concerns at this time Readmission Within The Last 30 Days no previous admission in last 30 days * Op Note - Danisha Haines - 05/31/2017 3:00 PM EST [facility] [place], [place] Operative Note Patient Name: Adama Ram : [id number] Case Date: 05/31/2017 Surgeon: Surgeon(s) and Role: * Gianna Tavarez MD - Primary * Danisha Haines MD - Resident-Surgeon Chief * John Longoria MD Preoperative diagnosis: left renal mass Postoperative diagnosis: left renal mass Procedure(s): @LAPAROSCOPY, RADICAL NEPHRECTOMY ([facility] 25.06) Anesthesia: General Findings: 1. One renal vein, one renal artery, one ureter 2. Uncomplicated left radical nephrectomy with adrenal sparing Complications: none Fluids: 2100 ml PRBCs: none (See Anesthesia Record/Report for Other Blood Products) Urine output: 600 ml Estimated Blood Loss: 100 mL Drains: 14 Fr urethral Escobar catheter with 10 ml sterile water in balloon Specimens removed during surgery: Order Name Source Comment Collection Info Order Time SPECIMEN TO PATHOLOGY (SURGICAL OR DERM) OR 28 [id number] Renal Mass Left kidney with partial ureter No Excision 05/31/2017 2:14 PM Time removed from patient: 2:12 PM Surgical Closure: Primary Closure - closure of ALL tissue levels during the original surgery regardless of wires, wickes, drains, or other devices extruding through the incision Disposition: awakened from anesthesia, extubated and taken to the recovery room in a stable condition, having suffered no apparent untoward event. Condition: doing well without problems (Please see the Surgical Encounter Summary for any Implant and Specimen details pertinent to this patient.) Infection Bundle used? N/A HPI/Surgical Indications: Adama Ram is a healthy 56 y.o. male with history of donor kidney transplant in 2002, presenting for planned LEFT laparoscopic radical nephrectomy for renal masses in his [place] left kidney. No recent changes to health status since he saw Dr. Tavarez in clinic on 05/19/2017. He is on warfarin for a DVT that happened in 2002. He has held warfarin, and has been on a lovenox bridge. His last dose of lovenox was last night. He has 4 more lovenox injections athome for the post-operative period. Description of Procedure: The patient was identified in the pre-operative holding area. Consent was verified. Correct side ofthe procedure was marked. Adama Ram was then taken to the operating room and placed supine on the operating room table and general orotracheal anesthesia was induced without difficulty. Anesthesia team performed a left side TAPS block. The patient was then placed in the left lateral decubitus position with the left side up and right side down. The table was bent to enlarge the space between his anterior iliac spine and his costal margin. Following positioning of the table, the patient was secured using a previously placed mcleod bag as well as tape. All pressure points were appropriately padded. A Escobar catheter had been placed prior to positioning the patient. The patient was then prepped and draped in the standard surgical fashion. We gently placed a veress needle inferior to the costal border at the mid clavicular line and once placement was confirmed with a drop test, we insufflated the abdomen with CO2 to a pressure of 15cm H2O. We then placed a 12mm port at the midclavicular line just lateral to the umbilicus and performed a diagnostic peritoneoscopy. There was no bleeding or injury. Under direct vision, we placed a 5mmport 6 cm superior to the first trocar in the midclavicular line and another airseal 12 mm port transversely in in the midclavicular line 6 cm below the camera port. We placed an accessory 12 mm port as well just lateral to that port. We used Harmonic dissection to take down the left flexure of thecolon and the splenic attachments.The dissection was done carefully not to injure the spleen, pancreas and stomach. We then started carefully dissecting along the lower pole. The left ureter was identified. We dissected out the left proximal ureter to aid in identification of the hilum. We identified the renal vein. The renal artery was then identified. We then isolated the renal vessels with careful dissection. The renal artery and then the renal vein were then stapled separately using a 45 mmstaple load. We then continued freeing the kidney by taking down the posterior and lateral attachments. The adrenal was spared. The ureter was clipped and sharply divided just superiorly to the clip. At this point, the kidney was free of all attachments. The abdominal cavity was then checked for bleeding and hemostasis was satisfactory at 8 cm of water pressure. We then made a jung incision after we desufflated the abdomen. This incision included the most lateral 12 mm port. The LEFT Kidney was then retrieved. The 12mm ports were closed with 0 vicryl figuer of eight stitched. We closed the peritoneum with a running 1 Vicryl stitch, and the abdominal wall fascia posteriorly using [id number] 0 vicryl stitches and then we closed the superficial fascia with a running nr1 vicryl stitch. All skin incisions were closed with subcuticular 4.0 Monocryl. Dermabond glue was applied to all incisions. There were no intraoperative complications. The patient was then awakened and taken to the recovery roomin good condition. The patient tolerated the procedure well and was awakened from anesthesia with no adverse events. Asponge and instrument count was performed and the counts were correct. The patient was taken to therecovery area in stable condition. Dr. Tavarez, the attending surgeon, was present for the entire procedure. Plan: Admit to urology CBC, BMP in PACU Continue home immune suppressants Will consider re-starting bridging lovenox tomorrow Associated attestation - Gianna Tavarez MD - 05/31/2017 9:29 PM EST Attestation: Case Date: 05/31/2017 I was present and I participated during the entire procedure (does not need to include opening and closing). GIANNA TAVAREZ MD 05/31/2017 * Brief Op Note - Gianna Tavarez MD - 05/31/2017 2:35 PM EST Brief Operative Note Patient Name: Adama Ram : [id number] MR#: [id number] Case Date: 05/31/2017 Surgeon: Surgeon(s) and Role: * Gianna Tavarez MD - Primary * Danisha Haines MD - Resident-Surgeon Chief * John Longoria MD Preoperative diagnosis: renal mass Postoperative diagnosis: renal mass Procedure(s) (LRB): @LAPAROSCOPY, RADICAL NEPHRECTOMY ([facility] 25.06) (Left) Anesthesia: General Findings: single artery, single vein. Large upper pole mass noted. Complications: none Intake: Intraprocedure Crystalloid Total None Transfusion No data found. Output: Estimated Blood Loss: 100 mL Urine Output:: 185 mL Other Output: (no other output recorded) Drains: 16F escobar Specimens removed during surgery: Order Name Source Comment Collection Info Order Time SPECIMEN TO PATHOLOGY (SURGICAL OR DERM) OR 28 [id number] Renal Mass Left kidney with partial ureter No Excision 05/31/2017 2:14 PM Time removed from patient: 2:12 PM Disposition: awakened from anesthesia, extubated and taken to the recovery room in a stable condition, having suffered no apparent untoward event. Condition: doing well without problems Attestation: Case Date: 05/31/2017 I was present and I participated during the entire procedure (does not need to include opening and closing). (Please see the Surgical Encounter Summary for any Implant and Specimen details pertinent to this patient.) documented in this encounter Plan of Treatment Not on file documented as of this encounter Procedures Procedure Name Priority Date/Time Associated Diagnosis Comments ECG SCAN 06/03/2017 12:00 AM EST HEMOGRAM Routine 06/02/2017 1:36 AM EST DIFFERENTIAL, AUTOMATED Routine 06/02/2017 1:36 AM EST CBC (WITH DIFF) Routine 06/02/2017 1:36 AM EST PHOSPHORUS Routine 06/02/2017 1:36 AM EST MAGNESIUM Routine 06/02/2017 1:36 AM EST BASIC METABOLIC PANEL Routine 06/02/2017 1:36 AM EST HEMOGRAM Routine 06/01/2017 3:27 AM EST DIFFERENTIAL, AUTOMATED Routine 06/01/2017 3:27 AM EST CBC (WITH DIFF) Routine 06/01/2017 3:27 AM EST PHOSPHORUS Routine 06/01/2017 3:27 AM EST MAGNESIUM Routine 06/01/2017 3:27 AM EST BASIC METABOLIC PANEL Routine 06/01/2017 3:27 AM EST HEMOGRAM STAT 05/31/2017 3:17 PM EST DIFFERENTIAL, AUTOMATED STAT 05/31/2017 3:17 PM EST CBC (WITH DIFF) STAT 05/31/2017 3:17 PM EST PHOSPHORUS STAT 05/31/2017 3:17 PM EST MAGNESIUM STAT 05/31/2017 3:17 PM EST BASIC METABOLIC PANEL STAT 05/31/2017 3:17 PM EST SPECIMEN TO PATHOLOGY Routine 05/31/2017 2:14 PM EST SURGICAL PATHOLOGY REPORT Routine 05/31/2017 2:12 PM EST MOLECULAR GENETICS REPORT Routine 05/31/2017 1:20 PM EST BLOOD GAS ARTERIAL POC Routine 05/31/2017 1:20 PM EST BLOOD GAS ARTERIAL POC Routine 05/31/2017 11:13 AM EST @LAPAROSCOPY, RADICAL NEPHRECTOMY (WRVU 25.06) Yes 05/31/2017 10:34 AM EST renal mass PREPARE RBC STAT 05/31/2017 10:25 AM EST POCT HGB Routine 05/31/2017 10:00 AM EST PROTHROMBIN TIME STAT 05/31/2017 9:06 AM EST Long-term (current) use of anticoagulants documented in this encounter Results * (ABNORMAL) Basic Metabolic Panel (non-fasting) (06/23/2017 12:21 PM EST) Glucose 84 65 - 199 mg/dL [facility] Comment:Diabetes: >=200 mg/d L plus symptoms Blood Urea Nitrogen 55(H) 10 - 20 mg/dL [facility] Creatinine 2.55(H) 0.80 - 1.50 mg/dL [facility] Sodium 146(H) 135 - 145 mmol/L [facility] Potassium 5.7(H) 3.5 - 5.0 mmol/L [facility] Comment: Please note: ??Patients with WBC >100,000 may have falsely elevated Potassium levels. ??For accurate Potassium quantification in these patients send serum separator tube (gold top) for subsequent determinations. ??Contact the Clinical Chemistry Laboratory if there are any questions. Chloride 114(H) 98 - 107 mmol/L [facility] Carbon Dioxide 18(L) 22 - 31 mmol/L [facility] Anion Gap 14 5 - 15 mmol/L [facility] Calcium 8.5 8.5 - 10.5 mg/dL [facility] Est Glomerular Filtration Rate 26(L) >=60 [facility] Comment: The reported eGFR should be multiplied by 1.2 for patients. The MDRD is not an appropriate measure of renal function for patients with body mass extremes or in patients with acute kidney failure. http://[employer]/DHnkdep http://[employer]/DHMCnkf Blood specimen (specimen) 06/23/2017 12:21 PM EST 06/23/2017 12:32 PM EST Narrative Resulting Agency Comment Spec In Lab Gianna Tavarez MD CHEMISTRY ORDERABL ES [facility] [place] [address] * SCAN DOC: ECG (06/03/2017 12:00 AM EST) Narrative 06/03/2017 12:00 AM EST Ordered by an unspecified provider. Scanning Provider MEDIA MGR SCAN EXT O RDR/RSLT * (ABNORMAL) Differential, Automated (06/02/2017 1:36 AM EST) Neutrophil % 80.4 % [facility] Neutrophil Absolute 5.14 1.70 - 6.10 x10(3)/[facility] Lymph % 9.4 % [facility] Lymphocytes Abs 0.6(L) 0.9 - 3.2 x10(3)/[facility] Monocyte % 7.8 % [facility] Monocyte Abs 0.5 0.3 - 0.9 x10(3)/[facility] Eos % 1.9 % [facility] Eosinophils Abs 0.1 0.0 - 0.4 x10(3)/[facility] Basophil % 0.2 % [facility] Baso Absolute 0.0 0.0 - 0.1 x10(3)/[facility] Immature Gran % 0.30 % [facility] Comment: Immature granulocytes(IG's)percentage and absolute count will include metamyelocytes, myelocytes, and promyelocytes. Blood smears from CBCs yielding IG's will be scanned manually for concordance. If this scan disagrees with the automated IG or if promyelocytes are noted, a manual differential will be performed. Immature Gran Absolute 0.02 0.00 - 0.04 x10(3)/[facility] Blood specimen (specimen) 06/02/2017 1:36 AM EST 06/02/2017 1:48 AM EST Narrative Resulting Agency Comment Spec In Lab Gianna Tavarez MD HEMATOLOGY ORDERAB LES [facility] [place] [address] * (ABNORMAL) Hemogram (06/02/2017 1:36 AM EST) Pathologist [facility] White Blood Cell 6.4 4.0 - 9.5 x10(3)/[facility] Red Blood Cell 3.17(L) 4.58 - 5.54 x10(6)/mc L [facility] Hemoglobin 9.4(L) 13.7 - 16.5 gm/dL [facility] Hematocrit 29.8(L) 40.5 - 48.5 % [facility] Mean Cell Volume 94.0(H) 82.9 - 93.1 fL [facility] Mean Cell Hemoglobin 29.7 27.5 - 32.1 pg [facility] Mean Cell Hemoglobin Concentration 31.5(L) 32.0 - 35.7 gm/dL [facility] Platelet 287 145 - 357 x10(3)/mc L [facility] RDW Standard Deviation 55.7(H) 36.0 - 45.0 fL [facility] RDW coefficient of variation 15.9(H) 11.4 - 13.8 % [facility] Mean Platelet Volume 9.1 7.6 - 12.9 [facility] NRBC% auto 0.0 % [facility] NRBC Absolute 0.000 0.000 - 0.000 x10(3)/mc L [facility] Blood specimen (specimen) 06/02/2017 1:36 AM EST 06/02/2017 1:48 AM EST Narrative Resulting Agency Comment Spec In Lab Gianna Tavarez MD HEMATOLOGY ORDERAB LES Performing Organization Address City/State/[facility] Co de Phone Number [facility] [place] [address] * Phosphorus (06/02/2017 1:36 AM EST) Phosphorus 4.1 2.5 - 4.5 mg/dL [facility] Blood specimen (specimen) 06/02/2017 1:36 AM EST 06/02/2017 1:48 AM EST Narrative Resulting Agency Comment Spec In Lab Gianna Tavarez MD CHEMISTRY ORDERABL ES Performing Organization Address City/[facility]/ZIP Co de Phone Number [facility] [place] [address] * (ABNORMAL) Magnesium (06/02/2017 1:36 AM EST) [facility] Magnesium 0.62(L) 0.69 - 1.07 mmol/L [facility] Blood specimen (specimen) 06/02/2017 1:36 AM EST 06/02/2017 1:48 AM EST Narrative Resulting Agency Comment Spec In Lab Gianna Tavarez MD CHEMISTRY ORDERABL ES Performing Organization Address [facility]/ZIP Co de Phone Number [facility] [place] [address] * (ABNORMAL) Basic Metabolic Panel (non-fasting) (06/02/2017 1:36 AM EST) [facility] Glucose 117 65 - 199 mg/dL [facility] Comment:Diabetes: >=200 mg/d L plus symptoms Blood Urea Nitrogen 36(H) 10 - 20 mg/dL [facility] Creatinine 2.19(H) 0.80 - 1.50 mg/dL [facility] Sodium 135 135 - 145 mmol/L [facility] Comment:result rechecked-mo Potassium 5.0 3.5 - 5.0 mmol/L [facility] Comment: result rechecked-mo Please note: ??Patients with WBC >100,000 may have falsely elevated Potassium levels. ??For accurate Potassium quantification in these patients send serum separator tube (gold top) for subsequent determinations. ??Contact the Clinical Chemistry Laboratory if there are any questions. Chloride 98 98 - 107 mmol/L [facility] Comment:result rechecked-mo Carbon Dioxide 25 22 - 31 mmol/L [facility] Anion Gap 12 5 - 15 mmol/L [facility] Calcium 8.0(L) 8.5 - 10.5 mg/dL [facility] Est Glomerular Filtration Rate 31(L) >=60 [facility] Comment: The reported eGFR should be multiplied by 1.2 for patients. The MDRD is not an appropriate measure of renal function for patients with body mass extremes or in patients with acute kidney failure. http://[employer]/DHnkdep http://[employer]/DHMCnkf Blood specimen (specimen) 06/02/2017 1:36 AM EST 06/02/2017 1:48 AM EST Narrative Resulting Agency Comment Spec In Lab Gianna Tavarez MD CHEMISTRY ORDERABL ES [facility] [place] [address] * (ABNORMAL) Differential, Automated (06/01/2017 3:27 AM EST) Neutrophil % 80.7 % [facility] Neutrophil Absolute 3.79 1.70 - 6.10 x10(3)/mc L [facility] Lymph % 11.3 % [facility] Lymphocytes Abs 0.5(L) 0.9 - 3.2 x10(3)/mc L [facility] Monocyte % 7.0 % [facility] Monocyte Abs 0.3 0.3 - 0.9 x10(3)/mc L [facility] Eos % 0.6 % [facility] Eosinophils Abs 0.0 0.0 - 0.4 x10(3)/mc L [facility] Basophil % 0.2 % [facility] Baso Absolute 0.0 0.0 - 0.1 x10(3)/mc L [facility] Immature Gran % 0.20 % [facility] Comment: Immature granulocytes(IG's)percentage and absolute count will include metamyelocytes, myelocytes, and promyelocytes. Blood smears from CBCs yielding IG's will be scanned manually for concordance. If this scan disagrees with the automated IG or if promyelocytes are noted, a manual differential will be performed. Immature Gran Absolute 0.01 0.00 - 0.04 x10(3)/ L [facility] Blood specimen (specimen) 06/01/2017 3:27 AM EST 06/01/2017 3:40 AM EST Narrative Resulting Agency Comment Spec In Lab Gianna Tavarez MD HEMATOLOGY ORDERAB LES [facility] [place] [address] * (ABNORMAL) Hemogram (06/01/2017 3:27 AM EST) White Blood Cell 4.7 4.0 - 9.5 x10(3)/[facility] Red Blood Cell 3.01(L) 4.58 - 5.54 x10(6)/[facility] Hemoglobin 8.7(L) 13.7 - 16.5 gm/dL [facility] Hematocrit 28.7(L) 40.5 - 48.5 % [facility] Mean Cell Volume 95.3(H) 82.9 - 93.1 [facility] Mean Cell Hemoglobin 28.9 27.5 - 32.1 pg [facility] Mean Cell Hemoglobin Concentration 30.3(L) 32.0 - 35.7 gm/dL [facility] Platelet 237 145 - 357 x10(3)/[facility] RDW Standard Deviation 56.2(H) 36.0 - 45.0 [facility] RDW coefficient of variation 16.2(H) 11.4 - 13.8 % [facility] Mean Platelet Volume 9.1 7.6 - 12.9 [facility] NRBC% auto 0.0 % [facility] NRBC Absolute 0.000 0.000 - 0.000 x10(3)/[facility] Blood specimen (specimen) 06/01/2017 3:27 AM EST 06/01/2017 3:40 AM EST Narrative Resulting Agency Comment Spec In Lab Gianna Tavarez MD HEMATOLOGY ORDERAB LES Performing Organization Address [facility] Co de Phone Number [facility] [place] [address] * Phosphorus (06/01/2017 3:27 AM EST) Phosphorus 3.7 2.5 - 4.5 mg/dL [facility] Blood specimen (specimen) 06/01/2017 3:27 AM EST 06/01/2017 3:40 AM EST Narrative Resulting Agency Comment Spec In Lab Gianna Tavarez MD CHEMISTRY ORDERABL ES Performing Organization Address [facility] Phone Number [facility] [place] [address] * Magnesium (06/01/2017 3:27 AM EST) Magnesium 0.72 0.69 - 1.07 mmol/L [facility] Blood specimen (specimen) 06/01/2017 3:27 AM EST 06/01/2017 3:40 AM EST Narrative Resulting Agency Comment Spec In Lab Gianna Tavarez MD CHEMISTRY ORDERABL ES Performing Organization Address [facility] de Phone Number [facility] [place] [address] * (ABNORMAL) Basic Metabolic Panel (non-fasting) (06/01/2017 3:27 AM EST) Glucose 104 65 - 199 mg/dL [facility] Comment:Diabetes: >=200 mg/d L plus symptoms Blood Urea Nitrogen 36(H) 10 - 20 mg/dL [facility] Creatinine 2.16(H) 0.80 - 1.50 mg/dL [facility] Sodium 142 135 - 145 mmol/L [facility] Potassium 5.4(H) 3.5 - 5.0 mmol/L [facility] [...] [facility] Est Glomerular Filtration Rate 32(L) >=60 [facility] Comment: The reported eGFR should be multiplied by 1.2 for patients. The MDRD is not an appropriate measure of renal function for patients with body mass extremes or in patients with acute kidney failure. http://[employer]/DHnkdep http://[employer]/DHMCnkf Blood specimen (specimen) 06/01/2017 3:27 AM EST 06/01/2017 3:40 AM EST Narrative Resulting Agency Comment Spec In Lab Gianna Tavarez MD CHEMISTRY ORDERABL ES [facility] [place] [address] * (ABNORMAL) Differential, Automated (05/31/2017 3:17 PM EST) Neutrophil % 88.8 % [facility] Neutrophil Absolute 5.84 1.70 - 6.10 x10(3)/mc L [facility] Lymph % 7.3 % [facility] Lymphocytes Abs 0.5(L) 0.9 - 3.2 x10(3)/mc L [facility] Monocyte % 2.7 % [facility] Monocyte Abs 0.2(L) 0.3 - 0.9 x10(3)/mc L [facility] Eos % 0.5 % [facility] Eosinophils Abs 0.0 0.0 - 0.4 x10(3)/[facility] Basophil % 0.2 % [facility] Baso Absolute 0.0 0.0 - 0.1 x10(3)/[facility] Immature Gran % 0.50 % [facility] Comment: Immature granulocytes(IG's)percentage and absolute count will include metamyelocytes, myelocytes, and promyelocytes. Blood smears from CBCs yielding IG's will be scanned manually for concordance. If this scan disagrees with the automated IG or if promyelocytes are noted, a manual differential will be performed. Immature Gran Absolute 0.03 0.00 - 0.04 x10(3)/[facility] Blood specimen (specimen) 05/31/2017 3:17 PM EST 05/31/2017 3:26 PM EST Narrative Resulting Agency Comment Spec In Lab Gianna Tavarez MD HEMATOLOGY ORDERAB LES [facility] [place] [address] * (ABNORMAL) Hemogram (05/31/2017 3:17 PM EST) White Blood Cell 6.6 4.0 - 9.5 x10(3)/[facility] Red Blood Cell 2.94(L) 4.58 - 5.54 x10(6)/[facility] Hemoglobin 8.6(L) 13.7 - 16.5 gm/dL [facility] Hematocrit 28.4(L) 40.5 - 48.5 % [facility] Mean Cell Volume 96.6(H) 82.9 - 93.1 fL [facility] Mean Cell Hemoglobin 29.3 27.5 - 32.1 pg [facility] Mean Cell Hemoglobin Concentration 30.3(L) 32.0 - 35.7 gm/dL [facility] Platelet 254 145 - 357 x10(3)/mc L [facility] RDW Standard Deviation 57.1(H) 36.0 - 45.0 fL [facility] RDW coefficient of variation 16.3(H) 11.4 - 13.8 % [facility] Mean Platelet Volume 9.1 7.6 - 12.9 fL [facility] NRBC% auto 0.0 % [facility] NRBC Absolute 0.000 0.000 - 0.000 x10(3)/mc L [facility] Blood specimen (specimen) 05/31/2017 3:17 PM EST 05/31/2017 3:26 PM EST Narrative Resulting Agency Comment Spec In Lab Gianna Tavarez MD HEMATOLOGY ORDERAB LES Performing Organization Address [facility] de Phone Number [facility] [place] [address] * Phosphorus (05/31/2017 3:17 PM EST) Phosphorus 3.4 2.5 - 4.5 mg/dL [facility] Blood specimen (specimen) 05/31/2017 3:17 PM EST 05/31/2017 3:26 PM EST Narrative Resulting Agency Comment Spec In Lab Gianna Tavarez MD CHEMISTRY ORDERABL ES Performing Organization Address [facility] de Phone Number [facility] [place] [address] * (ABNORMAL) Magnesium (05/31/2017 3:17 PM EST) Magnesium 0.65(L) 0.69 - 1.07 mmol/L [facility] Blood specimen (specimen) 05/31/2017 3:17 PM EST 05/31/2017 3:26 PM EST Narrative Resulting Agency Comment Spec In Lab Gianna Tavarez MD CHEMISTRY ORDERABL ES Performing Organization Address [facility] Co de Phone Number [facility] [place] [address] * (ABNORMAL) Basic Metabolic Panel (non-fasting) (05/31/2017 3:17 PM EST) Glucose 117 65 - 199 mg/dL [facility] Comment:Diabetes: >=200 mg/d L plus symptoms Blood Urea Nitrogen 39(H) 10 - 20 mg/dL [facility] Creatinine 2.31(H) 0.80 - 1.50 mg/dL [facility] Sodium 148(H) 135 - 145 mmol/L [facility] Potassium 5.4(H) 3.5 - 5.0 mmol/L [facility] [...] [facility] Est Glomerular Filtration Rate 30(L) >=60 [facility] Comment: The reported eGFR should be multiplied by 1.2 for patients. The MDRD is not an appropriate measure of renal function for patients with body mass extremes or in patients with acute kidney failure. http://[employer]/DHnkdep http://[employer]/DHMCnkf Blood specimen (specimen) 05/31/2017 3:17 PM EST 05/31/2017 3:26 PM EST Narrative Resulting Agency Comment Spec In Lab Gianna Tavarez MD CHEMISTRY ORDERABL ES [facility] [place] [address] * Specimen to Pathology (surgical or derm) (05/31/2017 2:14 PM EST) AP Specimen 05/31/2017 2:14 PM EST 05/31/2017 2:14 PM EST Narrative [facility] - 05/31/2017 2:14 PM EST Specimen requisition ordered. ??Separate Pathology report to follow Gianna Tavarez MD PATHOLOGY/CYTOLOGY ORDERABLES Performing Organization Address [facility] Co de Phone Number [facility] [place] [address] * Surgical Pathology Report (05/31/2017 2:12 PM EST) Final Diagnosis [id number] ? Location: 2WST; 0210; A The signing pathologist has (i) examined the relevant preparation(s) for the specimen(s) and (ii) rendered or confirmed the diagnosis(es). . ?Surgical Pathology DIAGNOSIS Specimen ? Specimen: ??Kidney ?Specimen Laterality: ?? Left ? 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 Overlapping features of both Type 1 and Type 2 ? papillary RCC are present. (See Discussion) ? Histologic Grade (WHO / ISUP Grade): ?G3 ? Tumor Size: ?? 4.9 Centimeters (cm) ? Tumor Focality: ?? Multifocal ? Tumor Extent ?Anatomic Extent of Tumor: ?? Tumor limited to kidney ? Accessory Tumor Findings ?Sarcomatoid Features: ?? Not identified ?Rhabdoid Features: ?? Not identified ?Tumor Necrosis: ?? Not identified ?Lymphovascular Invasion: ?? Not identified Margins ? Margins: ??Uninvolved by invasive carcinoma Lymph Nodes ? Regional Lymph Nodes: ?? No lymph nodes submitted or found Pathologic Stage Classification (pTNM, AJCC 7th Edition) ? TNM Descriptors: ?? m (multiple primary tumors) ? Primary Tumor (pT): ?? pT1b: Tumor more than 4 cm but not more than 7 cm in ?greatest dimension, limited to the kidney ? Regional Lymph Nodes (pN): ?? pNX: Regional lymph nodes cannot be assessed Additional Findings ? Pathologic Findings in Nonneoplastic Kidney: ?Glomerular disease - ?Diffuse global glomerulosclerosis, Tubulointerstitial disease - Extensive ?interstitial fibrosis ? Other Tumors and / or Tumor-Like Lesions: ?Tubular (papillary) adenoma(s) ? Adrenal Gland: ?? Not identified Tumor Block(s): ?? A7, A14 Normal Block(s): ?? A15 CAP [facility] 2017 Feb WHO Update Release Electronically signed by: ??Juan Carlos Jacob MD Verified: ??06/08/2017 ?Pathologist Performed at: ??-[facility] [place] [place] Dept. of Pathology, [place], [place] DISCUSSION Some morphologic features including oncocytic vacuolated cytology and focal solid and microcystic growth were observed in the two dominant tumors. In this clinical context, the possibility of acquired cystic disease (end-stage kidney) associated renal cell carcinoma entered into the differential diagnosis. However, other classic features of ACDRCC are lacking, including dystrophic calcification and sieve-like growth. Furthermore, the abundance of papillary architecture, foamy macrophage accumulation, IHC profile, and presence of multiple papillary adenomas argue in favor of the diagnosis of papillary RCC. To further investigate the molecular . DISCUSSION profile of this tumor, chromosome SNP microarray testing will be ordered and will be reported separately. ADDITIONAL STUDIES Whole slide scan: A7, A12, A14 Immunohistochemistry Studies: Formalin-fixed, paraffin-embedded tissue sections are studied using the polymer technique with appropriate positive and negative controls. ?These IHC studies provide the pathologist with adjunctive diagnostic information. Antibody specificity has been verified by testing antibodies on a series of in-house tissues with known immunohistochemical performance characteristics. The clinical interpretation of any antibody positive staining or its absence is evaluated within the context of clinical presentation, morphology, histopathological criteria and other diagnostic tests. Block ? Antibody ?Result (Positive/Negative) A7 ? CK7 ?Positive A7 ? p504s ?Positive CLINICAL INFORMATION Specimen Submitted: A - Left kidney with partial ureter Clinical History: Renal mass Clinical Diagnosis: Renal mass SPECIMEN PROCESSING A - Labeled/Fixative: Left kidney with partial ureter, fresh. Qty/Size/Weight: Single, 17.3 x 10.5 x 5.2 cm, 355 g. (overall size and weight). SPECIMEN DESCRIPTION Resection Specimen: Intact left-sided radical nephrectomy. The adipose tissue adjacent to the kidney is from the kidney surface, but still attached to the main specimen. LESION I Location: Nodule within renal parenchyma, pushing out into perirenal tissue. Size: 4.9 x 4.0 x 3.6 cm. Color: The surface is disrupted. The cut surface is heterogeneous, brown. Consistency: Rubbery at the periphery, soft in the center. Contour: Bulging out from the kidney, 3.1 cm. The lesion encapsulated. ?Direct Extension: Adipose tissue adjacent lesion is grossly ? uninvolved. The lesion extends into the renal pelvis. Focality: Unifocal. Capsule: Involved. Well encapsulated. Gerota 's Fascia: Uninvolved. Pelvis: A fibrous septa separate the pelvis around the lesion. Margins: 1.4 cm to arterial/venous margin. LESION II Location: Within renal parenchyma, pushing out into perirenal tissue. Size: 3.7 x 3.1 x 2.1 cm. Color: Brown. Consistency: Spongy. Contour: Bulging into perirenal tissue. Well encapsulated. ?Direct Extension: Adipose tissue adjacent to lesion is grossly ? uninvolved. Extending into renal pelvis. Focality: Unifocal. Capsule: Uninvolved. . SPECIMEN PROCESSING Gerota 's Fascia: Uninvolved. Pelvis: Involved. Margins: 4.2 cm to arterial/venous margin. KIDNEY Size: 8.5 x 6.5 x 3.2 cm. Parenchyma: Atrophic renal parenchyma, heterogeneous, charles-brown, 0.6 cm thickness with focal cystic structures. Ureter: 1.5 cm, smooth white mucosa, patent. Vein: 0.6 cm, grossly uninvolved by lesion. OTHER Lymph Nodes: None. Sections: (1) ureter margin en face; (2) arterial margin en face; (3) venous margin en face; (4-5) adipose tissue adjacent to lesion I; (6) lesion I to renal surface, with disrupted capsule; (7) lesion I to renal parenchyma; (8-9) lesion I to renal pelvis; (10) client representative lesion I; (11) lesion II to surface; (12) lesion II to pelvis, including lesion I; (13) lesion II to renal parenchyma; (14) client representative lesion II; (15-16) client representative renal parenchyma. (R16) ??crj 06/08/2017 4:44 PM EST [facility] SPECIMEN FROM KIDNEY / Unknown 05/31/2017 2:12 PM EST 05/31/2017 2:12 PM EST Gianna Tavarez MD PATHOLOGY/CYTOLOGY ORDERABLES [facility] [place] [address] * Molecular Genetics Report (05/31/2017 1:20 PM EST) Molecular Report [id number] ? Location: 2WST; 0210; A The signing pathologist has (i) examined the relevant preparation(s) for the specimen(s) and (ii) rendered or confirmed the diagnosis(es). . ?Molecular Genetics RESULTS Please refer to Pathology Report [id number] for final pathology diagnosis. TEST: ?? Chromosomal Microarray (CONCRETE PAVER), SNP FFPE-Renal INDICATION FOR STUDY: ?? Papillary renal cell carcinoma SPECIMEN ANALYZED: ?? [id number]: A region of tumor, identified microscopically and estimated to contain 95% tumor cells was dissected from unstained FFPE section for DNA extraction. RESULTS: Copy number gains: ??Chromosome 3 ??Chromosome 7 ??Chromosome 12 ??Chromosome 16 ??Chromosome 17 ??Chromosome 20 Copy number losses: ??none Copy neutral loss of heterozygosity (cnLOH): ?none High copy number gains (amplifications): ?? none Ploidy: apparently diploid with exceptions noted above but potentially tetraploid with five copies of chromosomes listed above) Sex: Male ISCN: arr(1,3,7,12,16,17,2 0)x3 INTERPRETATION: This tumor has multiple chromosome copy number gains (trisomies) as listed above. These findings are consistent with previously reported changes in papillary renal cell carcinoma. The area of tumor used in this testing was estimated to be compromised of approximately 95% tumor. The pattern of allelic imbalance, however is more consistent with a mix of approximately 50% tumor cells with the chromosomal gains and 50% normal diploid cells. Alternatively this pattern would also be seen in relatively pure population of near tetraploid cells with five copies of the chromosomes listed above with gains. FISH testing could be used to differentiate between a state of near diploidy versus near tetraploidy. Recurrent chromosomal gains and losses are associated with specific subtypes of renal cell carcinoma. Identification of these chromosomal changes may be useful in . RESULTS making or confirming the diagnosis of one of these subtypes. Interpretation of these results must be made along with histopathological review. RELEVANT REFERENCES: Larry B, Marcos L, Husam AE, Al-Castillo H, Varsha O, Mikala K, Marquis S, Luis GJ, Steven VV, Marquis RS, Milad VE, Chelo J. Subtyping of renal cortical neoplasms in fine needle aspiration biopsies using a decision tree based on genomic alterations detected by fluorescence in situ hybridization. BJU Int. 2014 Jun;114(6):881-90. [PMID: 72709869] Nena LD, Kaitlynn M, Li MM, Ace ML, Shreya DJ; Working Group of the [employer] ([employer]) Laboratory Major Account Representative Committee. [employer] technical standards and guidelines: microarray analysis for chromosome abnormalities in neoplastic disorders. Cecilia Med. 2013 Dec;15(6):484-94. [PMID: [id number]]. METHODS: ?? DNA was isolated from formalin-fixed, paraffin-embedded (FFPE) tumor tissue, treated and hybridized to an OncoScan FFPE Assay Kit (Affymetrix) microarray designed to detect DNA copy number abnormalities and copy neutral loss of heterozygosity (cn-JOHN) throughout the genome using molecular inversion probes specific for over 220,000 SNP. The resolution of this test is between 50 and 125 kb within approximately 900 cancer-related genes and at least 300 kb for over 90% of the remaining genome. Copy number changes greater than 1 Mb and cn-JOHN greater than 8 Mb are reported. In some cases, smaller regions will be reported if clinically relevant. Current medical literature along with several databases of copy number variants and other genomic resources were used during the interpretation, including: the ISCA consortium database, Online Mendelian Inheritance in Man (OMIM), DECIPHER, the Database of Genomic Variants. The information in these resources is updated regularly and current at the time of testing. New information not available at the time of testing may result in altered interpretation if data from this microarray are re-analyzed at a future date. The analysis of the array and nucleotide positions given are based on the human genome build GRCh37/hg19 with nomenclature given based on ISCN 2013. LIMITATIONS AND DISCLAIMERS: ?1. ??The test detects aneuploidy as well as gains and losses (deletions, ? duplications, gene amplifications) and copy neutral loss of heterozygosity. ?2. ??Balanced chromosomal rearrangements (balanced translocations or inversions) ? cannot be detected. ?3. ??Single nucleotide variants (point mutations) and small copy number changes ? (less than approximately 50 kb) cannot be detected. ?4. ??Low tumor content and tumor heterogeneity can limit the ability of this test ? to detect some abnormalities. Somatic changes present in less than 25% of cells ? may not be seen, especially single copy gains or losses. ?5. ??Some forms of polyploidy, specifically tetraploidy without additional ? abnormalities may not be detected with this test. ?6. ??Germline (constitutional) abnormalities may be detected requiring a genetics ? consultation for further interpretation of these results and correlation ? with the patient 's full clinical presentation and family history. Germline ? or suspected germline findings that are considered benign or have uncertain ? clinical significance may be excluded from this report. In some cases, it ? may be difficult to distinguish between germline and acquired abnormalities. ? Additional testing of blood or other non-tumor tissue can be considered prove ? or rule out the presence of germline abnormalities when clinically relevant. . RESULTS ?7. ??This test was developed and its performance characteristics determined by ? the [facility] [place] [place] Molecular Pathology Laboratory. It has not been cleared or approved ? by the U.S. Food and Drug Administration (FDA). The FDA has determined that ? such clearance or approval is not necessary. This test is used for clinical ? purposes. It should not be regarded as investigational or for research. This ? laboratory is certified under the Clinical Laboratory Improvement Amendments ? of 1988 (CLIA) as qualified to perform high-complexity clinical laboratory ? testing. Reviewed by: Danny Cohen, PhD Drier [employer], Molecular Pathology _ Electronically signed by: ??Nidia JONES, Juan Carlos Grubbs Verified: ??06/30/2017 ?Pathologist Performed at: ??-[facility] [place] [place] Dept. of Pathology, [facility] LABORATORY 05/31/2017 1:20 PM EST Gianna Tavarez MD PATHOLOGY/CYTOLOGY ORDERABLES [facility] [place] [address] * (ABNORMAL) BLOOD GAS 2 ARTERIAL (05/31/2017 1:20 PM EST) pH, Arterial 7.35(L) 7.35 - 7.45 [facility] PCO2, Arterial 41 35 - 45 mmHg [facility] PO2, Arterial 150(H) 85 - 104 mmHg [facility] Bicarbonate, Arterial 22.1 20.0 - 26.0 mmol/L [facility] Base Excess, Arterial -3.4(L) -3.0 - 3.0 mmol/L [facility] Hgb Blood Gas 9.1(L) 13.7 - 16.5 gm/dL [facility] Oxyhemoglobin, Arterial 98.1(H) 94.0 - 97.0 % [facility] Carboxyhemoglob in, Arterial 0.2 % [facility] Comment: Nonsmokers: 0.5-1.5% COHB Smokers: Variable, but usually less than 10% Toxic: 20-30% COHB Lethal: Greater than 60% COHB Methemoglobin, Arterial 0.3 <=1.5 % [facility] Na Whole Blood 139 135 - 145 mmol/L [facility] K Whole Blood 5.4(H) 3.5 - 5.0 mmol/L [facility] Comment: Please note: Patients with WBC >100,000 may have falsely elevated Potassium levels. Contact the Clinical Chemistry Laboratory if there are any questions. ICa Whole Blood 1.06(L) 1.15 - 1.33 mmol/L [facility] Comment: Note: ??Total bilirubin higher than 20 mg/dL may lead to falsely low ionized calcium. CL Whole Blood 112(H) 98 - 107 mmol/L [facility] Gluc Whole Bld 110 65 - 199 mg/dL [facility] Comment:Diabetes: >=200 mg/d L plus symptoms. Lactate WB 1.2 0.5 - 2.2 mmol/L [facility] Blood specimen (specimen) 05/31/2017 1:20 PM EST 05/31/2017 1:20 PM EST Gianna Tavarez MD POINT OF CARE TEST ORDERABLES Performing Organization Address City/State/[facility] Co de Phone Number [facility] [place] [address] * (ABNORMAL) BLOOD GAS 2 ARTERIAL (05/31/2017 11:13 AM EST) pH, Arterial 7.39 7.35 - 7.45 [facility] PCO2, Arterial 38 35 - 45 mmHg [facility] PO2, Arterial 337(H) 85 - 104 mmHg [facility] Bicarbonate, Arterial 22.0 20.0 - 26.0 mmol/L [facility] Base Excess, Arterial -3.0 -3.0 - 3.0 mmol/L [facility] Hgb Blood Gas 9.8(L) 13.7 - 16.5 gm/dL [facility] Oxyhemoglobin, Arterial 98.7(H) 94.0 - 97.0 % [facility] Carboxyhemoglob in, Arterial 0.3 % [facility] Comment: Nonsmokers: 0.5-1.5% COHB Smokers: Variable, but usually less than 10% Toxic: 20-30% COHB Lethal: Greater than 60% COHB Methemoglobin, Arterial 0.3 <=1.5 % [facility] Na Whole Blood 140 135 - 145 mmol/L [facility] K Whole Blood 4.7 3.5 - 5.0 mmol/L [facility] Comment: Please note: Patients with WBC >100,000 may have falsely elevated Potassium levels. Contact the Clinical Chemistry Laboratory if there are any questions. ICa Whole Blood 1.13(L) 1.15 - 1.33 mmol/L [facility] Comment: Note: ??Total bilirubin higher than 20 mg/dL may lead to falsely low ionized calcium. CL Whole Blood 111(H) 98 - 107 mmol/L [facility] Gluc Whole Bld 109 65 - 199 mg/dL [facility] Comment:Diabetes: >=200 mg/d L plus symptoms. Lactate WB 1.1 0.5 - 2.2 mmol/L [facility] Blood specimen (specimen) 05/31/2017 11:13 AM EST 05/31/2017 11:13 AM EST Gianna Tavarez MD POINT OF CARE TEST ORDERABLES [facility] [place] [phone] * Prepare RBC (05/31/2017 10:25 AM EST) Dispensed? Yes [facility] Blood specimen (specimen) 05/31/2017 10:25 AM EST 05/31/2017 10:20 AM EST Gianna Tavarez MD BLOOD BANK PRODUCT ORDERABLES [facility] [place] [place] [address] * POCT HGB (05/31/2017 10:00 AM EST) POC Hemoglobin 7.8 g/dL Blood specimen (specimen) 05/31/2017 10:00 AM EST Ilda Montero MD POINT OF CARE TEST O RDERABLES * Prothrombin Time (05/31/2017 9:06 AM EST) Prothrombin Time 13.9 11.8 - 14.0 sec [facility] International Normalization Ratio 1.1 0.9 - 1.1 [facility] Comment: An INR <2.0 [...] depending on clinical circumstances. Blood specimen (specimen) 05/31/2017 9:06 AM EST 05/31/2017 9:09 AM EST Narrative Resulting Agency Comment Spec In Lab Cally Lopez Olson BISCUIT FACTORY WORKER HEMATOLOGY ORDERABLE S Performing Organization Address City/State/[facility] Co de Phone Number [facility] [place] [address] documented in this encounter Visit Diagnoses Diagnosis Long-term (current) use of anticoagulants Encounter for long-term (current) use of anticoagulants Renal mass Unspecified disorder of kidney and ureter Renal mass Unspecified disorder of kidney and ureter documented in this encounter Admitting Diagnoses Diagnosis Renal mass Unspecified disorder of kidney and ureter documented in this encounter Administered Medications Inactive Administered Medications - up to 3 most recent administrations Medication Order MAR Action Action Date Dose Rate Site acetaminophen (TYLENOL) tablet 1,000 mg 1,000 mg, Oral, ONCE, 1 dose, On Wed05/31/17 at 0945, Administer with SIP of H2O only., Day of Surgery (Day of Procedure), Routine Given 05/31/2017 9:45 AM EST 1,000 mg acetaminophen (TYLENOL) tablet 1,000 mg 1,000 mg, Oral, EVERY 6 HOURS SCHEDULED, First dose on Wed05/31/17 at 1800, Until Discontinued, Routine Given 06/02/2017 11:59 AM EST 1,000 mg Given 06/02/2017 6:47 AM EST 1,000 mg Given 06/01/2017 11:47 PM EST 1,000 mg allopurinol (ZYLOPRIM) tablet 150 mg 150 mg, Oral, DAILY, First dose on Wed06/01/17 at 0900, Until Discontinued, Routine Given 06/02/2017 9:1 8 AM EST 150 mg Given 06/01/2017 9:12 AM EST 150 mg ceFAZolin (ANCEF) 2g in dextrose 5% 100 mL 2 g, Intravenous, EVERY 8 HOURS, 2 doses, First dose on Wed05/31/17 at 2100, Last dose on Wed06/01/17 at 0500, Administer over 30 Minutes, Indication for (Active or Suspected): Prophylaxis New Bag 06/01/2017 4:58 AM EST 2 g 200 mL/hr New Bag 05/31/2017 9:00 PM EST 2 g 200 mL/hr dilTIAZem (DILTIAZEM CD) ER capsule 120 mg 120 mg, Oral, DAILY, First dose on Wed06/01/17 at 0900, Until Discontinued, DO NOT CRUSH OR OPEN Hold for sbp < 120, Routine Given 06/02/2017 9:19 AM EST 120 mg Given 06/01/2017 9:14 AM EST 120 mg docusate sodium (COLACE) capsule 100 mg 100 mg, Oral, 2 TIMES DAILY, First dose on Wed05/31/17 at 2100, Until Discontinued, Routine Given 06/02/2017 9:19 AM EST 100 mg Given 06/01/2017 8:56 PM EST 100 mg Given 06/01/2017 9:15 AM EST 100 mg enoxaparin (LOVENOX) injection 40 mg 40 mg, Subcutaneous, NIGHTLY, First dose on Wed05/31/17 at 2100, Until Discontinued, Routine Given 06/02/2017 1:36 PM EST 40 mg Given 06/01/2017 8:56 PM EST 40 mg Given 05/31/2017 9:00 PM EST 40 mg hydrALAZINE (APRESOLINE) injection 5-10 mg 5-10 mg, Intravenous, EVERY 6 HOURS PRN, Starting on Wed05/31/17 at 1513, Until Wed06/02/17 at 1602, High Blood Pressure, administer 5mg for SBP>150, may repeat in 10 minutes if 1st dose ineffective. Given 06/02/2017 12:58 AM EST 5 mg Given 06/02/2017 12:28 AM EST 5 mg Given 05/31/2017 3:17 PM EST 10 mg hydrALAZINE (APRESOLINE) tablet 50 mg 50 mg, Oral, 2 TIMES DAILY, First dose on Wed05/31/17 at 2100, Until Discontinued, Hold for sbp <120, Routine Given 06/01/2017 8:56 PM EST 50 mg Given 06/01/2017 9:13 AM EST 50 mg Given 05/31/2017 9:00 PM EST 50 mg lactated Ringers infusion 1,000 mL 1,000 mL, at 100 mL/hr, Intravenous, CONTINUOUS, Starting on Wed05/31/17 at 0945, Until Wed05/31/17 at 1748, Day of Surgery (Day of Procedure) New Bag 05/31/2017 10:29 AM EST New Bag 05/31/2017 9:57 AM EST 1,000 mLs 100 mL/hr lactated Ringers infusion 75 mL/hr, Intravenous, CONTINUOUS, Starting on Wed05/31/17 at 1600, Until Wed06/01/17 at 0851 New Bag 05/31/2017 3:38 PM EST 75 mL/hr 75 m L/hr levETIRAcetam (KEPPRA) tablet 1,000 mg 1,000 mg, Oral, NIGHTLY, First dose on Wed05/31/17 at 2100, Until Discontinued, Routine Given 06/01/2017 8:57 PM EST 1,000 mg Given 05/31/2017 9:00 PM EST 1,000 mg levETIRAcetam (KEPPRA) tablet 500 mg 500 mg, Oral, DAILY, First dose on Wed06/01/17 at 0900, Until Discontinued, Routine Given 06/02/2017 9:2 1 AM EST 500 mg Given 06/01/2017 9:13 AM EST 500 mg levothyroxine (SYNTHROID) tablet 88 mcg 88 mcg, Oral, EVERY MORNING, First dose on Wed06/01/17 at 0600, Until Discontinued, Routine Given 06/02/2017 6:47 AM EST 88 mcg Given 06/01/2017 5:00 AM EST 88 mcg lidocaine (XYLOCAINE) 10 mg/mL (1 %) injection 3 mg 3 mg (0.3 mL), Subcutaneous, ONCE PRN, 1 dose, Starting on Wed05/31/17 at 0925, Until Wed05/31/17 at 0958, for discomfort with PIV insertion, Day of Surgery (Day of Procedure), Routine Given 05/31/2017 9:58 AM EST 3 mg magnesium sulfate 1g in dextrose 5% 100mL 1 g, Intravenous, ONCE, 1 dose, On Wed05/31/17 at 1830, Administer over 60 Minutes New Bag 05/31/2017 6:54 PM EST 1 g 100 mL/hr magnesium sulfate 2 g in sterile water 50 mL 2 g, Intravenous, ONCE, 1 dose, On Wed06/02/17 at 0900, Administer over 120 Minutes New Bag 06/02/2017 9:13 AM EST 2 g 25 mL/hr meTOPROLOL tartrate (LOPRESSOR) tablet 25 mg 25 mg, Oral, 3 TIMES DAILY, First dose (after last modification) on Wed06/01/17 at 1000, Until Discontinued, Hold for sbp <100 or hr <55, Routine Given 06/02/2017 9:21 AM EST 25 mg Given 06/01/2017 8:57 PM EST 25 mg Given 06/01/2017 4:41 PM EST 25 mg meTOPROLOL tartrate (LOPRESSOR) tablet 50 mg 50 mg, Oral, 3 TIMES DAILY, First dose on Wed05/31/17 at 2100, Until Discontinued, Hold for sbp <100 or hr <55, Routine Given 05/31/2017 9:00 PM EST 50 mg mycophenolate (CELLCEPT) capsule 250 mg 250 mg, Oral, 2 TIMES DAILY, First dose on Wed05/31/17 at 2100, Until Discontinued, DO NOT CRUSH OR OPEN Administer to patient on empty stomach (1 hour before or two hours after a meal)., Routine Given 06/02/2017 9:22 AM EST 250 mg Given 06/01/2017 8:57 PM EST 250 mg Given 06/01/2017 9:14 AM EST 250 mg ondansetron (ZOFRAN) injection 4 mg 4 mg, Intravenous, EVERY 8 HOURS PRN, Starting on Wed05/31/17 at 1808, Until Wed06/02/17 at 1602, Nausea, May repeat times one in 30 minutes if ineffective. If multiple antiemetics are ordered, give ondansetron first. ondansetron (ZOFRAN) tablet 4 mg 4 mg, Oral, EVERY 8 HOURS PRN, Starting on Wed05/31/17 at 1808, Until Wed06/02/17 at 1602, Nausea, Vomiting, If multiple antiemetics are ordered, use ondansetron first. PO Preferred. If patient unable to take PO, may give IV if ordered. May repeat times one in 45 minutes if ineffective. If unable to take PO, may give IV., Routine oxyCODONE (ROXICODONE) immediate release tablet 5-10 mg 5-10 mg, Oral, EVERY 4 HOURS PRN, Starting on Wed05/31/17 at 1532, Until Wed06/02/17 at 1602, Pain, give 5 mg for pain 1-5/10, give 10 mg for pain 6-10/10, Routine Given 06/01/2017 5:30 PM EST 5 mg pantoprazole (PROTONIX) tablet 40 mg 40 mg, Oral, DAILY, First dose on Wed06/01/17 at 0900, Until Discontinued, DO NOT CRUSH OR OPEN Given 06/02/2017 9:22 AM EST 40 mg Given 06/01/2017 9:15 AM EST 40 mg prochlorperazine (COMPAZINE) injection 10 mg 10 mg, Intravenous, EVERY 6 HOURS PRN, Starting on Wed05/31/17 at 1808, Until Wed06/02/17 at 1602, Nausea, Nausea/Vomiting, If multiple antiemetics are ordered, use ondansetron first. If ondansetron ineffective use prochlorperazine. , Routine prochlorperazine (COMPAZINE) injection 5 mg 5 mg, Intravenous, EVERY 30 MIN PRN, 2 doses, Starting on Wed05/31/17 at 1449, Until Wed05/31/17 at 1748, Nausea, May repeat 5 mg once in 30 minutes. If multiple antiemetics ordered, use ondansetron first and if ineffective use prochlorperazine second and if ineffective use promethazine, PACU Recovery, Routine Given 05/31/2017 3:35 PM EST 5 m g prochlorperazine (COMPAZINE) tablet 10 mg 10 mg, Oral, EVERY 6 HOURS PRN, Starting on Wed05/31/17 at 1808, Until Wed06/02/17 at 1602, Nausea, Nausea/Vomiting, If multiple antiemetics are ordered, use ondansetron first. If ondansetron ineffective use prochlorperazine. PO Preferred. If patient unable to take PO, may give IV if ordered., Routine promethazine (PHENERGAN) injection 12.5 mg 12.5 mg, Intravenous, EVERY 30 MIN PRN, Nausea, Starting on Wed05/31/17 at 1449, 2 doses, Until Wed05/31/17 at 1629, VESICANT - Dilute with a minimum of 10 mL saline. LARGE VEIN only. Inject over 10 minutes into the farthest port of a running IV infusion. Remain with the patient and STOP infusion immediately if patient reports burning. Avoid extravasation. If multiple antiemetics are ordered, use ondansetron first and if ineffective use prochlorperazine second and if ineffective use promethazine., PACU Recovery Given 05/31/2017 4:29 PM EST 12.5 mg Given 05/31/2017 3:58 PM EST 12.5 mg sodium bicarbonate tablet 650 mg 650 mg, Oral, 2 TIMES DAILY, First dose on Wed05/31/17 at 2100, Until Discontinued, Routine Given 06/02/2017 9:22 AM EST 650 mg Given 06/01/2017 8:57 PM EST 650 mg Given 06/01/2017 9:15 AM EST 650 mg sodium chloride 0.9 % flush 5 mL 5 mL, Intravenous, 2 TIMES DAILY, First dose on Wed05/31/17 at 2100, Until Discontinued, Routine Given 06/02/2017 9:23 AM EST 5 mLs Given 06/01/2017 8:58 PM EST 5 mLs Given 06/01/2017 9:52 AM EST 5 mLs tacrolimus (PROGRAF) capsule 1 mg 1 mg, Oral, 2 TIMES DAILY, First dose on Wed05/31/17 at 2100, Until Discontinued, Routine Given 06/02/2017 9:23 AM EST 1 mg Given 06/01/2017 8:58 PM EST 1 mg Given 06/01/2017 9:15 AM EST 1 mg documented in this encounter Active and Recently Administered Medications Times are shown in EST. Scheduled Medication Order 05/31/2017 06/01/2017 06/02/2017 acetaminophen (TYLENOL) tablet 1,000 mg (COMPLETED) 1,000 mg, Oral, ONCE, 1 dose, On Wed05/31/17 at 0945, Administer with SIP of H2O only., Day of Surgery (Day of Procedure), Routine 0945 (Given - Provider: Rosalie Fowler RN) acetaminophen (TYLENOL) tablet 1,000 mg 1,000 mg, Oral, EVERY 6 HOURS SCHEDULED, First dose on Wed05/31/17 at 1800, Until Discontinued, Routine 1854 (Given - Provider: Caitlin Vicente RN) 0004 (Given - Provider: Radha Choudhary RN)0500 (Given - Provider: Radha Choudhary RN)1331 (Given - Provider: Leslie Turner RN)1859 (Given - Provider: Leslie Turner RN)2347 (Given - Provider: Jenny French, SAVANNA) 0647 (Given - Provider: Jenny French RN)1159 (Given - Provider: Krysta Cardona RN) allopurinol (ZYLOPRIM) tablet 150 mg 150 mg, Oral, DAILY, First dose on Wed06/01/17 at 0900, Until Discontinued, Routine 0912 (Given - Provider: Leslie Turner RN) 0918 (Given - Provider: Krysta Cardona RN) ceFAZolin (ANCEF) 2g in dextrose 5% 100 mL (COMPLETED) 2 g, Intravenous, FIRST AID DIRECTOR TO O.R., 1 dose, On Wed05/31/17 at 0945, Administer over 30 Minutes, Day of Surgery (Day of Procedure), Indication for (Active or Suspected): Prophylaxis 1116 (Given - Provider: Ananth Musa)1412 (Given - Provider: Ananth Musa) ceFAZolin (ANCEF) 2g in dextrose 5% 100 mL (COMPLETED) 2 g, Intravenous, EVERY 8 HOURS, 2 doses, First dose on Wed05/31/17 at 2100, Last dose on Wed06/01/17 at 0500, Administer over 30 Minutes, Indication for (Active or Suspected): Prophylaxis 2100 (New Bag - Provider: Radha Choudhary RN)2130 (Stopped - Provider: Radha Choudhary RN) 0458 (New Bag - Provider: Radha Choudhary RN)0528 (Stopped - Provider: Radha Choudhary RN) dilTIAZem (DILTIAZEM CD) ER capsule 120 mg 120 mg, Oral, DAILY, First dose on Wed06/01/17 at 0900, Until Discontinued, DO NOT CRUSH OR OPEN Hold for sbp < 120, Routine 0914 (Given - Provider: Leslie Turner RN) 918 (Given - Provider: Krysta Cardona, SAVANNA) docusate sodium (COLACE) capsule 100 mg 100 mg, Oral, 2 TIMES DAILY, First dose on Wed05/31/17 at 2100, Until Discontinued, Routine 2100 (Given - Provider: Radha Choudhary RN) 914 (Given - Provider: Leslie Turner RN)2055 (Given - Provider: Jenny French, SAVANNA) 918 (Given - Provider: Krysta Cardona, SAVANNA) enoxaparin (LOVENOX) injection 40 mg 40 mg, Subcutaneous, NIGHTLY, First dose on Wed05/31/17 at 2100, Until Discontinued, Routine 2100 (Given - Provider: Radha Choudhary RN) 2055 (Given - Provider: Jenny French RN) 1335 (Given - Provider: Krysta Cardona RN) heparin (Porcine) subcutaneous injection 5,000 Units (COMPLETED) 5,000 Units, Subcutaneous, FIRST AID DIRECTOR TO O.R., 1 dose, On Wed05/31/17 at 0945, Day of Surgery (Day of Procedure), Routine 1125 (Given - Provider: Ananth Musa - Comment: left shoulder) hydrALAZINE (APRESOLINE) tablet 50 mg 50 mg, Oral, 2 TIMES DAILY, First dose on Wed05/31/17 at 2100, Until Discontinued, Hold for sbp <120, Routine 2099 (Given - Provider: Radha Choudhary RN) 912 (Given - Provider: Leslie Turner, SAVANNA)2055 (Given - Provider: Jenny French, SAVANNA) 918 (Not Given - Provider: Krysta Cardona RN - Reason: Order parameters not met) levETIRAcetam (KEPPRA) tablet 1,000 mg 1,000 mg, Oral, NIGHTLY, First dose on Wed05/31/17 at 2100, Until Discontinued, Routine 2100 (Given - Provider: Radha Choudhary RN) 2056 (Given - Provider: Jenny French RN) levETIRAcetam (KEPPRA) tablet 500 mg 500 mg, Oral, DAILY, First dose on Wed06/01/17 at 0900, Until Discontinued, Routine 0913 (Given - Provider: Leslie Turner RN) 0921 (Given - Provider: Krysta Cardona RN) levothyroxine (SYNTHROID) tablet 88 mcg 88 mcg, Oral, EVERY MORNING, First dose on Wed06/01/17 at 0600, Until Discontinued, Routine 0500 (Given - Provider: Radha Choudhary RN) 0647 (Given - Provider: Jenny French RN) magnesium sulfate 1g in dextrose 5% 100mL (COMPLETED) 1 g, Intravenous, ONCE, 1 dose, On Wed05/31/17 at 1830, Administer over 60 Minutes 1854 (New Bag - Provider: Caitlin Vicente RN)1954 (Stopped - Provider: Radha Choudhary RN) magnesium sulfate 2 g in sterile water 50 mL (COMPLETED) 2 g, Intravenous, ONCE, 1 dose, On Wed06/02/17 at 0900, Administer over 120 Minutes 0913 (New Bag - Provider: Krysta Cardona RN)1113 (Stopped - Provider: Krysta Cardona RN) meTOPROLOL tartrate (LOPRESSOR) tablet 25 mg 25 mg, Oral, 3 TIMES DAILY, First dose (after last modification) on Wed06/01/17 at 1000, Until Discontinued, Hold for sbp <100 or hr <55, Routine 0950 (Given - Provider: Leslie Turner RN)1641 (Given - Provider: Leslie Turner RN)2057 (Given - Provider: Jenny French RN) 0921 (Given - Provider: Krysta Cardona, SAVANNA) meTOPROLOL tartrate (LOPRESSOR) tablet 50 mg (CANCELED) 50 mg, Oral, 3 TIMES DAILY, First dose on Wed05/31/17 at 2100, Until Discontinued, Hold for sbp <100 or hr <55, Routine 2100 (Given - Provider: Radha Choudhary, SAVANNA) mycophenolate (CELLCEPT) capsule 250 mg 250 mg, Oral, 2 TIMES DAILY, First dose on Wed05/31/17 at 2100, Until Discontinued, DO NOT CRUSH OR OPEN Administer to patient on empty stomach (1 hour before or two hours after a meal)., Routine 2101 (Given - Provider: Radha Choudhary RN) 913 (Given - Provider: Leslie Turner RN)2056 (Given - Provider: Jenny French RN) 921 (Given - Provider: Krysta Cardona, SAVANNA) pantoprazole (PROTONIX) tablet 40 mg 40 mg, Oral, DAILY, First dose on Wed06/01/17 at 0900, Until Discontinued, DO NOT CRUSH OR OPEN 914 (Given - Provider: Leslie Turner RN) 921 (Given - Provider: Krysta Cardona RN) sodium bicarbonate tablet 650 mg 650 mg, Oral, 2 TIMES DAILY, First dose on Wed05/31/17 at 2100, Until Discontinued, Routine 2100 (Given - Provider: Radha Choudhary RN) 914 (Given - Provider: Leslie Turner RN)2056 (Given - Provider: Jenny French RN) 921 (Given - Provider: Krysta Cardona RN) sodium chloride 0.9 % flush 5 mL 5 mL, Intravenous, 2 TIMES DAILY, First dose on Wed05/31/17 at 2100, Until Discontinued, Routine 2100 (Given - Provider: Radha Choudhary RN) 951 (Given - Provider: Leslie Turner RN)2057 (Given - Provider: Jenny French RN) 922 (Given - Provider: Krysta Cardona RN) tacrolimus (PROGRAF) capsule 1 mg 1 mg, Oral, 2 TIMES DAILY, First dose on Wed05/31/17 at 2100, Until Discontinued, Routine 2099 (Given - Provider: Radha Choudhary RN) 914 (Given - Provider: Leslie Turner RN)2057 (Given - Provider: Jenny French RN) 922 (Given - Provider: Krysta Cardona RN) Continuous Medication Order 05/31/2017 06/01/2017 06/02/2017 lactated Ringers infusion 1,000 mL (CANCELED) 1,000 mL, at 100 mL/hr, Intravenous, CONTINUOUS, Starting on Wed05/31/17 at 0945, Until Wed05/31/17 at 1748, Day of Surgery (Day of Procedure) 0957 (New Bag - Provider: Rosalie Fowler RN)1029 (New Bag - Provider: Ananth Musa)1332 (Stopped - Provider: Ananth Musa)1600 (Stopped - Provider: Judith Dawson, RN) lactated Ringers infusion (CANCELED) 75 mL/hr, Intravenous, CONTINUOUS, Starting on Wed05/31/17 at 1600, Until Wed06/01/17 at 0851 1538 (New Bag - Provider: Judith Dawson, RN) PRN Medication Order 05/31/2017 06/01/2017 06/02/2017 bisacodyl (DULCOLAX) suppository 10 mg 10 mg, Rectal, DAILY PRN, Starting on Wed05/31/17 at 1808, Until Wed06/02/17 at 1602, Constipation, Administer if needed per patient's routine or if no bowel movement within 48 hours to achieve: 1) One bowel movement at least every 48 hours, AND 2) Without straining. If multiple bowel medications ordered, consider adding if docusate or milk of magnesia not sufficient., Routine hydrALAZINE (APRESOLINE) injection 5-10 mg 5-10 mg, Intravenous, EVERY 6 HOURS PRN, Starting on Wed05/31/17 at 1513, Until Wed06/02/17 at 1602, High Blood Pressure, administer 5mg for SBP>150, may repeat in 10 minutes if 1st dose ineffective. 1517 (Given - Provider: Judith Dawson, SAVANNA) 0028 (Given - Provider: Jenny French, SAVANNA)0058 (Given - Provider: Jenny French, SAVANNA) HYDROmorphone (DILAUDID) injection 0.3 mg 0.3 mg, Intravenous, EVERY 4 HOURS PRN, Starting on Wed05/31/17 at 1808, Until Wed06/02/17 at 1602, Pain, use if po regimen ineffective, Routine lidocaine (XYLOCAINE) 10 mg/mL (1 %) injection 3 mg (COMPLETED) 3 mg (0.3 mL), Subcutaneous, ONCE PRN, 1 dose, Starting on Wed05/31/17 at 0925, Until Wed05/31/17 at 0958, for discomfort with PIV insertion, Day of Surgery (Day of Procedure), Routine 0958 (Given - Provider: Rosalie Fowler RN) lidocaine (XYLOCAINE) 10 mg/mL (1 %) injection 3 mg 3 mg (0.3 mL), Subcutaneous, ONCE PRN, 1 dose, Starting on Wed05/31/17 at 1808, Until Wed06/02/17 at 1602, for discomfort with PIV insertion, Routine ondansetron (ZOFRAN) injection 4 mg(Linked Group 1) 4 mg, Intravenous, EVERY 8 HOURS PRN, Starting on Wed05/31/17 at 1808, Until Wed06/02/17 at 1602, Nausea, May repeat times one in 30 minutes if ineffective. If multiple antiemetics are ordered, give ondansetron first. ondansetron (ZOFRAN) tablet 4 mg(Linked Group 1) 4 mg, Oral, EVERY 8 HOURS PRN, Starting on Wed05/31/17 at 1808, Until Wed06/02/17 at 1602, Nausea, Vomiting, If multiple antiemetics are ordered, use ondansetron first. PO Preferred. If patient unable to take PO, may give IV if ordered. May repeat times one in 45 minutes if ineffective. If unable to take PO, may give IV., Routine oxyCODONE (ROXICODONE) immediate release tablet 5-10 mg 5-10 mg, Oral, EVERY 4 HOURS PRN, Starting on Wed05/31/17 at 1532, Until Wed06/02/17 at 1602, Pain, give 5 mg for pain 1-5/10, give 10 mg for pain 6-10/10, Routine 1730 (Given - Provider: Leslie Turner RN) polyethylene glycol (MIRALAX) packet 17 g 17 g, Oral, DAILY PRN, Starting on Wed06/01/17 at 0000, Until Wed06/02/17 at 1602, Constipation, Routine prochlorperazine (COMPAZINE) injection 10 mg(Linked Group 2) 10 mg, Intravenous, EVERY 6 HOURS PRN, Starting on Wed05/31/17 at 1808, Until Wed06/02/17 at 1602, Nausea, Nausea/Vomiting, If multiple antiemetics are ordered, use ondansetron first. If ondansetron ineffective use prochlorperazine. , Routine prochlorperazine (COMPAZINE) injection 5 mg (CANCELED) 5 mg, Intravenous, EVERY 30 MIN PRN, 2 doses, Starting on Wed05/31/17 at 1449, Until Wed05/31/17 at 1748, Nausea, May repeat 5 mg once in 30 minutes. If multiple antiemetics ordered, use ondansetron first and if ineffective use prochlorperazine second and if ineffective use promethazine, PACU Recovery, Routine 1535 (Given - Provider: Judith Dawson, SAVANNA) prochlorperazine (COMPAZINE) tablet 10 mg(Linked Group 2) 10 mg, Oral, EVERY 6 HOURS PRN, Starting on Wed05/31/17 at 1808, Until Wed06/02/17 at 1602, Nausea, Nausea/Vomiting, If multiple antiemetics are ordered, use ondansetron first. If ondansetron ineffective use prochlorperazine. PO Preferred. If patient unable to take PO, may give IV if ordered., Routine promethazine (PHENERGAN) injection 12.5 mg (COMPLETED) 12.5 mg, Intravenous, EVERY 30 MIN PRN, Nausea, Starting on Wed05/31/17 at 1449, 2 doses, Until Wed05/31/17 at 1629, VESICANT - Dilute with a minimum of 10 mL saline. LARGE VEIN only. Inject over 10 minutes into the farthest port of a running IV infusion. Remain with the patient and STOP infusion immediately if patient reports burning. Avoid extravasation. If multiple antiemetics are ordered, use ondansetron first and if ineffective use prochlorperazine second and if ineffective use promethazine., PACU Recovery 1558 (Given - Provider: Judith Dawson, SAVANNA)1629 (Given - Provider: Judith Dawson RN) sodium chloride 0.9 % flush 5-20 mL 5-20 mL, Intravenous, EVERY 1 MIN PRN, Starting on Wed05/31/17 at 1808, Until Wed06/02/17 at 1602, flush, Flush pertains to all indwelling lines. Flush per protocol found in the job aid using the link provided on this medication record., Routine Linked Groups Order Group 1: ondansetron (ZOFRAN) tablet 4 mgJump to med 4 mg, Oral, EVERY 8 HOURS PRN, Starting on Wed05/31/17 at 1808, Until Wed06/02/17 at 1602, Nausea, Vomiting, If multiple antiemetics are ordered, use ondansetron first. PO Preferred. If patient unable to take PO, may give IV if ordered. May repeat times one in 45 minutes if ineffective. If unable to take PO, may give IV., Routine Or ondansetron (ZOFRAN) injection 4 mgJump to med 4 mg, Intravenous, EVERY 8 HOURS PRN, Starting on Wed05/31/17 at 1808, Until Wed06/02/17 at 1602, Nausea, May repeat times one in 30 minutes if ineffective. If multiple antiemetics are ordered, give ondansetron first. Group 2: prochlorperazine (COMPAZINE) tablet 10 mgJump to med 10 mg, Oral, EVERY 6 HOURS PRN, Starting on Wed05/31/17 at 1808, Until Wed06/02/17 at 1602, Nausea, Nausea/Vomiting, If multiple antiemetics are ordered, use ondansetron first. If ondansetron ineffective use prochlorperazine. PO Preferred. If patient unable to take PO, may give IV if ordered., Routine Or prochlorperazine (COMPAZINE) injection 10 mgJump to med 10 mg, Intravenous, EVERY 6 HOURS PRN, Starting on Wed05/31/17 at 1808, Until Wed06/02/17 at 1602, Nausea, Nausea/Vomiting, If multiple antiemetics are ordered, use ondansetron first. If ondansetron ineffective use prochlorperazine. , Routine documented in this encounter Care Teams Choker Hooker Relationship Specialty Start Date End Date Carroll Fuentes DO [address] [place] [address] PCP - General 09/23/11 10/20/22 documented as of this encounter
--- OUTSIDE RECORDS SUMMARY | 2024-04-22 11:09 | XMS_ITS | Encounter Summary ---
Author Organization [facility] [place] [address] Care Team Providers Care Production Team Manager Name Role Phone Alfredo, Carroll MIX Primary Care Provider [phone] Encounter Details Date Type Department Care Team (Late st Contact Info) Description 05/26/2017 10:40 AM EST [place] [address] Renal mass Social History Tobacco Use Types [...] Procedure Name Priority Date/Time Associated Diagnosis Comments ABORH RECHECK STATUS Routine 05/26/2017 11:19 AM EST SCAN, PERIPHERAL BLOOD Routine 7 11:19 AM EST HEMOGRAM Routine 05/26/2017 11:19 AM EST Renal mass DIFFERENTIAL, AUTOMATED Routine 05/26/2017 11:19 AM EST Renal mass ABO/RH TYPING Routine 05/26/2017 11:19 AM EST Renal mass CBC (WITH DIFF) Routine 05/26/2017 11:19 AM EST Renal mass ANTIBODY SCREEN Routine 05/26/2017 11:19 AM EST Renal mass TYPE AND SCREEN ([facility]) Routine 05/26/2017 11:19 AM EST Renal mass COMPREHENSIVE METABOLIC PANEL Routine 05/26/2017 11:19 AM EST Renal mass documented in this encounter Results * Scan, Peripheral Blood (05/26/2017 11:19 AM EST) Plat estimate Normal [facility] RBC Morphology Abnormal [facility] Ovalocytes 1-5 /HPF [facility] Jasper Cells 1-5 /HPF [facility] Blood specimen (specimen) 05/26/2017 11:19 AM EST 05/26/2017 11:37 AM EST Narrative Resulting Agency Comment Spec In Lab Jax Mills MD HEMATOLOGY ORDERAB LES Performing Organization Address [facility]/ZIP Co de Phone Number [facility] [place] [address] * ABORH Recheck Status (05/26/2017 11:19 AM EST) ABORH Type Recheck Completed [facility] Blood specimen (specimen) 05/26/2017 11:19 AM EST 05/26/2017 11:23 AM EST Narrative Resulting Agency Comment Spec In Lab Jax Mills MD BLOOD BANK LAB ORD ERABLES Performing Organization Address City/[facility]/ZIP Co de Phone Number [facility] [place] [address] * (ABNORMAL) Differential, Automated (05/26/2017 11:19 AM EST) Neutrophil % 67.8 % [facility] Neutrophil Absolute 2.38 1.70 - 6.10 x10(3)/[facility] Lymph % 14.5 % [facility] Lymphocytes Abs 0.5(L) 0.9 - 3.2 x10(3)/[facility] Monocyte % 11.4 % [facility] Monocyte Abs 0.4 0.3 - 0.9 x10(3)/[facility] Eos % 5.4 % [facility] Eosinophils Abs 0.2 0.0 - 0.4 x10(3)/[facility] Basophil % 0.3 % [facility] Baso Absolute 0.0 0.0 - 0.1 x10(3)/[facility] Immature Gran % 0.60 % [facility] Comment: Immature granulocytes(IG's)percentage and absolute count will include metamyelocytes, myelocytes, and promyelocytes. Blood smears from CBCs yielding IG's will be scanned manually for concordance. If this scan disagrees with the automated IG or if promyelocytes are noted, a manual differential will be performed. Immature Gran Absolute 0.02 0.00 - 0.04 x10(3)/[facility] Blood specimen (specimen) 05/26/2017 11:19 AM EST 05/26/2017 11:37 AM EST Narrative Resulting Agency Comment Spec In Lab Jax Mills MD HEMATOLOGY ORDERAB LES [facility] [place] [address] * (ABNORMAL) Hemogram (05/26/2017 11:19 AM EST) White Blood Cell 3.5(L) 4.0 - 9.5 x10(3)/[facility] Red Blood Cell 3.13(L) 4.58 - 5.54 x10(6)/[facility] Hemoglobin 8.9(L) 13.7 - 16.5 gm/dL [facility] Hematocrit 29.8(L) 40.5 - 48.5 % [facility] Mean Cell Volume 95.2(H) 82.9 - 93.1 fL [facility] Mean Cell Hemoglobin 28.4 27.5 - 32.1 pg [facility] Mean Cell Hemoglobin Concentration 29.9(L) 32.0 - 35.7 gm/dL [facility] Platelet 246 145 - 357 x10(3)/mc L [facility] RDW Standard Deviation 55.4(H) 36.0 - 45.0 fL [facility] RDW coefficient of variation 16.1(H) 11.4 - 13.8 % [facility] Mean Platelet Volume 9.5 7.6 - 12.9 [facility] NRBC% auto 0.0 % [facility] NRBC Absolute 0.000 0.000 - 0.000 x10(3)/mc L [facility] Blood specimen (specimen) 05/26/2017 11:19 AM EST 05/26/2017 11:37 AM EST Narrative Resulting Agency Comment Spec In Lab Jax Mills MD HEMATOLOGY ORDERAB LES Performing Organization Address City/[facility]/ZIP Co de Phone Number [facility] [place] [address] * Antibody screen (05/26/2017 11:19 AM EST) Ab Screen Interp Negative [facility] Expires at [id number] on: 06/03/2017 [facility] Blood specimen (specimen) 05/26/2017 11:19 AM EST 05/26/2017 11:23 AM EST Narrative Resulting Agency Comment Spec In Lab Jax Mills MD BLOOD BANK LAB ORD ERABLES Performing Organization Address City/[facility]/ZIP Co de Phone Number [facility] [place] [address] * ABO/Rh Typing (05/26/2017 11:19 AM EST) ABORH Type A Pos [facility] Blood specimen (specimen) 05/26/2017 11:19 AM EST 05/26/2017 11:23 AM EST Narrative Resulting Agency Comment Spec In Lab Jax Mills MD BLOOD BANK LAB ORD ERABLES [facility] [place] [address] * (ABNORMAL) Comprehensive metabolic panel (non-fasting) (05/26/2017 11:19 AM EST) Pathologist [facility] Glucose 97 65 - 199 mg/dL [facility] Comment:Diabetes: >=200 mg/d L plus symptoms Blood Urea Nitrogen 36(H) 10 - 20 mg/dL [facility] Creatinine 2.29(H) 0.80 - 1.50 mg/dL [facility] Sodium 148(H) 135 - 145 mmol/L [facility] Potassium 4.1 3.5 - 5.0 mmol/L [facility] Comment: Please note: ??Patients with WBC >100,000 may have falsely elevated Potassium levels. ??For accurate Potassium quantification in these patients send serum separator tube (gold top) for subsequent determinations. ??Contact the Clinical Chemistry Laboratory if there are any questions. Chloride 112(H) 98 - 107 mmol/L [facility] Carbon Dioxide 22 22 - 31 mmol/L [facility] Anion Gap 14 5 - 15 mmol/L [facility] Calcium 8.2(L) 8.5 - 10.5 mg/dL [facility] Protein, Total 5.6(L) 6.1 - 8.0 gm/dL [facility] Albumin 3.5 3.2 - 5.2 gm/dL [facility] Aspartate Aminotransferase 12 0 - 39 unit/L [facility] Alanine Aminotransferase 9 0 - 55 unit/L [facility] Alkaline Phosphatase 103 40 - 120 unit/L [facility] Bilirubin, Total 0.2 0.2 - 1.3 mg/dL [facility] Est Glomerular Filtration Rate 30(L) >=60 [facility] Comment: The reported eGFR should be multiplied by 1.2 for patients. The MDRD is not an appropriate measure of renal function for patients with body mass extremes or in patients with acute kidney failure. http://[email or web address] [email or web address]://[email or web address] Blood specimen (specimen) 05/26/2017 11:19 AM EST 05/26/2017 11:37 AM EST Narrative Resulting Agency Comment Spec In Lab Jax Mills MD CHEMISTRY ORDERABL ES [facility] [place] [phone] documented in this encounter Visit Diagnoses Diagnosis Renal mass Unspecified disorder of kidney and ureter documented in this encounter Care Teams Production Team Manager Relationship Specialty Start Date End Date Carroll Fuentes DO [address] [place] [address] PCP - General 09/23/11 10/20/22 documented as of this encounter
--- OUTSIDE RECORDS SUMMARY | 2024-04-22 11:09 | XMS_ITS | Encounter Summary ---
Author Organization [facility] Address [facility] [place] [address] Care Team Providers Care Senior Gis Analyst Name Role Phone AlfredoCarroll allison Primary Care Provider [phone] Reason for Visit * Auth/Cert Specialty Diagnoses / Procedures Referred By Shashi ko Referred To Contact Diagnoses Renal mass renal mass UNK Procedures PRO LAP, RADICAL NEPHRECTOMY @[email or web address], RADICAL NEPHRECTOMY (WRVU .) Referral ID Status Reason Start Date Expiration Date Visits Re quested Visits Authorized [id number] 1 1 Encounter Details Date Type Department Care Team (Late st Contact Info) Description 05/31/2017 10:30 AM EST - 05/31/2017 3:38 PM EST [place] [id number] Gianna Tavarez MD [facility] [place] [address] @LAPAROSCOPY, RADICAL NEPHRECTOMY (WRVU .) Social History Tobacco Use Types Packs/Day Years [...] Sign Reading Time Taken Comments Blood Pressure 131/88 05/31/2017 3:30 PM EST Pulse 64 05/31/2017 3:30 PM EST Temperature 36.5 ??C (97.7 ??F) 05/31/2017 3:05 PM ES T Respiratory Rate 17 05/31/2017 3:30 PM EST Oxygen Saturation 96% 05/31/2017 3:30 PM EST Inhaled Oxygen Concentration - - Weight 79.4 kg (175 lb) 05/31/2017 9:30 AM EST Height 177.8 cm (5' 10) 05/31/2017 9:30 AM EST Body Mass Index 25.11 05/31/2017 9:30 AM EST documented in this encounter Discharge Summaries * Devi Smith PA - 06/02/2017 12:36 PM EST Discharge Summary Patient Name: Adama Ram Patient Age: 56 y.o. Language: Cambodian Race: White Ethnicity: Not nor Admit date: [...] GFR 15-29 ml/min ??? 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 group home current use of immunosuppressive drug ??? H/O [...] found to havenew renal masses in his teller left kidney. He denies any flank pain or hematuria. He has lost ~ 20lbs over the last 2 months (lack of appetite). He denies any family hx of RCC. Renal function has been stable (GFR b/w 23-31 recently). Hospital Course: Patient was admitted electively to [facility] via the same day surgery program and [...] by Dr. Fuentes. You have refills at [facility]. 30 mg Refills: 0 Continued medications with [...] questions is before 5 PM weekdays and [phone] after 5 PM and weekends, and ask for technology methodology consultant Urologist. Coumadin and Lovenox: Please continue to take Lovenox 30 mg daily as prescribed by Dr. Fuentes. Please restart your regular dose of Coumadin on Wednesday, 06/07. Dr. Fuentes's office would like for you to have your INR checked on Wednesday, 06/08, at [facility]. They will advise you further on Lovenox andCoumadin dosing. Your [facility] in [facility] says that you have a refill on [...] 12:20 PM LAB, THREE L Lab 3L [facility] [phone] 06/23/2017 1:20 PM Gianna Tavarez MD Urology at [place] [phone] 06/28/2017 8:40 AM LAB, [address] [facility] [phone] 06/28/2017 9:40 AM Anup Hawkins MD Transplant at [place] [phone] 07/22/2017 3:00 PM Chanel Smith MD Dermatology at [facility] [phone] 11/17/2017 9:20 AM LAB, THREE L Lab 3L [facility] [phone] 11/17/2017 10:40 AM Anup Hawkins MD Transplant at [place] [phone] Future Orders Complete By Expires Basic Metabolic Panel (non-fasting) [LAB15 Custom] 06/16/2017 (Approximate) 12/16/2017 Process Instructions: INCLUDES: Calcium, BUN, Creat, GFR, Glucose, Lytes Scheduling Instructions: Comments: Questions: Primary Care Provider: Carroll Fuentes DO [phone] Follow-up Recommendations for Providers: Please see discharge [...] was managed by the Urology Team at [facility]. If you have any questions or concerns, please feel free to contact us. Provider Contact Information: Urology Clinic: [facility] (after business hours): Associated attestation - Gianna [...] 5 PM and weekends, and ask for technology methodology consultant Urologist. Coumadin and Lovenox: Please continue to take Lovenox 30 mg daily as prescribed by Dr. Fuentes. Please restart your regular dose of Coumadin on Wednesday, 06/07. Dr. Fuentes's office would like for you to have your INR checked on Wednesday, 06/08, at [facility]. They will advise you further on Lovenox andCoumadin dosing. Your [facility] in [facility] says that you have a refill on [...] by Dr. Fuentes. You have refills at [facility] in [facility]. 06/02/2017 06/28/2017 warfarin (COUMADIN) 5 mg [...] he gets his daily Lovenox injections at [facility], in infusion or the lab, usually about 2pm. This RN unable to reach anyone in the infusion or lab departments, messages left. PANCHITO Aquino updated on situation. RN Garnishment Specialist Anastasia Frey attempting to reach someone directly to determine Lovenox injections can be given consistently at [facility] as patient describes, including holiday and weekend. 1330: Addendum. Nursing unable to verify with [facility] that anyone there gives patient his daily Lovenox injections. PANCHITO Smith made aware and accompanied this RN and RN Garnishment Specialist to patient's room to discuss further. Patient's [...] Tylenol effective for pain management. 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 * [...] was instructed to contact Regional Anesthesia Team ([id number]) for any unresolved sensory or motor deficits. ?? Thank you for the opportunity to have participated in the care of this patient. JESENIA RADFORD MD Regional Team pager [phone] * Devi Smith PA - 06/01/2017 8:53 AM EST Urology IP Progress Note ID: Adama Ram is a 56 y.o. 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 Doing well post-op. Goals [...] radical nephrectomy for renal masses in his teller left kidney. No recent changes to health [...] radical nephrectomy for renal masses in his teller left kidney. Patient appears fit forsurgery. The [...] Ongoing (Interventions Implemented as Appropriate) 06/01/17 193 Safety Interventions Isolation Precautions standard precautions maintained [...] organ taken out. Procedure(s): @LAPAROSCOPY, RADICAL NEPHRECTOMY (WRVU 25.06) ??Anesthesia: General ??Findings: 1. One renal [...] Pneumonia ??? TBI (traumatic brain injury) 1979 Hospitalizations Within [...] his brother Lucas Ram who resides in [place]; pt's 86 year old mother Ilda listed as second POA. Current Coping/Education/Information Needs: Seems to be coping well with no complaints at time of interview. Current Functional Ability: SBA Functional Status Prior to Admission: Independent. Home Environment: Pt lives in a second floor apartment building located in [facility]. Pt's mother Ilda lives two doors [...] Able to manage Rx co-pays. Preferred Pharmacy: [facility] in [place], [place]. Other: na Primary Care Provider: Carroll Fuentes DO [phone] Patient/Caregiver Goals of Treatment: Effective pain control; [...] of care planning. Padmini Ruiz RN, BSN Portal Administrator-[facility] Pager # [phone] [email or web address] * Plan of Care - [...] toward outcome * Plan of Care - Funmi, Radha Chacko RN - 06/01/2017 6:16 AM [...] Danisha Haines - 05/31/2017 3:00 PM EST [facility] Operative Note Patient Name: Adama Ram : [id number] Case Date: 05/31/2017 Surgeon: Surgeon(s) and Role: [...] TO PATHOLOGY (SURGICAL OR DERM) OR 28 [id number] Renal Mass Left kidney with partial ureter [...] radical nephrectomy for renal masses in his teller left kidney. No recent changes to health [...] and the abdominal wall fascia posteriorly using [id number] 0 vicryl stitches and then we closed [...] Operative Note Patient Name: Adama Ram : [id number] MR#: [id number] Case Date: 05/31/2017 Surgeon: Surgeon(s) and Role: [...] TO PATHOLOGY (SURGICAL OR DERM) OR 28 [id number] Renal Mass Left kidney with partial ureter [...] EST) Glucose 84 65 - 199 mg/dL [facility] Comment:Diabetes: >=200 mg/d L plus symptoms Blood Urea Nitrogen 55(H) 10 - 20 mg/dL [facility] Creatinine 2.55(H) 0.80 - 1.50 mg/dL [facility] Sodium 146(H) 135 - 145 mmol/L [facility] Potassium 5.7(H) 3.5 - 5.0 mmol/L [facility] Comment: Please note: ??Patients with WBC >100,000 may have falsely elevated Potassium levels. ??For accurate Potassium quantification in these patients send serum separator tube (gold top) for subsequent determinations. ??Contact the Clinical Chemistry Laboratory if there are any questions. Chloride 114(H) 98 - 107 mmol/L [facility] Carbon Dioxide 18(L) 22 - 31 mmol/L [facility] Anion Gap 14 5 - 15 mmol/L [facility] Calcium 8.5 8.5 - 10.5 mg/dL [facility] Est Glomerular Filtration Rate 26(L) >=60 [facility] Comment: The reported eGFR should be multiplied by 1.2 for patients. The MDRD is not an appropriate measure of renal function for patients with body mass extremes or in patients with acute kidney failure. http://[employer]/DHnkdep http://[employer]/DHMCnkf Blood specimen (specimen) 06/23/2017 12:21 PM EST 06/23/2017 12:32 PM EST Narrative Resulting Agency Comment Spec In Lab Gianna Tavarez MD CHEMISTRY ORDERABL ES [facility] [place] [address] * SCAN DOC: ECG (06/03/2017 12:00 AM EST) Narrative 06/03/2017 12:00 AM EST Ordered by an unspecified provider. Scanning Provider MEDIA MGR SCAN EXT O RDR/RSLT * (ABNORMAL) Differential, Automated (06/02/2017 1:36 AM EST) Pathologist [facility] [place] Neutrophil % 80.4 % [facility] Neutrophil Absolute 5.14 1.70 - 6.10 x10(3)/[facility] Lymph % 9.4 % [facility] Lymphocytes Abs 0.6(L) 0.9 - 3.2 x10(3)/[facility] Monocyte % 7.8 % [facility] Monocyte Abs 0.5 0.3 - 0.9 x10(3)/[facility] Eos % 1.9 % [facility] Eosinophils Abs 0.1 0.0 - 0.4 x10(3)/[facility] Basophil % 0.2 % [facility] Baso Absolute 0.0 0.0 - 0.1 x10(3)/[facility] Immature Gran % 0.30 % [facility] Comment: Immature granulocytes(IG's)percentage and absolute count will include metamyelocytes, myelocytes, and promyelocytes. Blood smears from CBCs yielding IG's will be scanned manually for concordance. If this scan disagrees with the automated IG or if promyelocytes are noted, a manual differential will be performed. Immature Gran Absolute 0.02 0.00 - 0.04 x10(3)/[facility] Blood specimen (specimen) 06/02/2017 1:36 AM EST 06/02/2017 1:48 AM EST Narrative Resulting Agency Comment Spec In Lab Gianna Tavarez MD HEMATOLOGY ORDERAB LES [facility] [place] [address] * (ABNORMAL) Hemogram (06/02/2017 1:36 AM EST) Pathologist [facility] White Blood Cell 6.4 4.0 - 9.5 x10(3)/[facility] Red Blood Cell 3.17(L) 4.58 - 5.54 x10(6)/mc L [facility] Hemoglobin 9.4(L) 13.7 - 16.5 gm/dL [facility] Hematocrit 29.8(L) 40.5 - 48.5 % [facility] Mean Cell Volume 94.0(H) 82.9 - 93.1 fL [facility] Mean Cell Hemoglobin 29.7 27.5 - 32.1 pg [facility] Mean Cell Hemoglobin Concentration 31.5(L) 32.0 - 35.7 gm/dL [facility] Platelet 287 145 - 357 x10(3)/mc L [facility] RDW Standard Deviation 55.7(H) 36.0 - 45.0 [facility] RDW coefficient of variation 15.9(H) 11.4 - 13.8 % [facility] Mean Platelet Volume 9.1 7.6 - 12.9 [facility] NRBC% auto 0.0 % [facility] NRBC Absolute 0.000 0.000 - 0.000 x10(3)/mc L [facility] Blood specimen (specimen) 06/02/2017 1:36 AM EST 06/02/2017 1:48 AM EST Narrative Resulting Agency Comment Spec In Lab Gianna Tavarez MD HEMATOLOGY ORDERAB LES Performing Organization Address City/State/[facility] Co de Phone Number [facility] [place] [address] * Phosphorus (06/02/2017 1:36 AM EST) Phosphorus 4.1 2.5 - 4.5 mg/dL [facility] Blood specimen (specimen) 06/02/2017 1:36 AM EST 06/02/2017 1:48 AM EST Narrative Resulting Agency Comment Spec In Lab Gianna Tavarez MD CHEMISTRY ORDERABL ES Performing Organization Address City/[facility]/ZIP Co de Phone Number [facility] [address] * (ABNORMAL) Magnesium (06/02/2017 1:36 AM EST) Pathologist [facility] [place] Magnesium 0.62(L) 0.69 - 1.07 mmol/L [facility] Blood specimen (specimen) 06/02/2017 1:36 AM EST 06/02/2017 1:48 AM EST Narrative Resulting Agency Comment Spec In Lab Gainna Tavarez MD CHEMISTRY ORDERABL ES Performing Organization Address [facility] Co de Phone Number [facility] [place] [address] * (ABNORMAL) Basic Metabolic Panel (non-fasting) (06/02/2017 1:36 AM EST) [facility] Glucose 117 65 - 199 mg/dL [facility] Comment:Diabetes: >=200 mg/d L plus symptoms Blood Urea Nitrogen 36(H) 10 - 20 mg/dL [facility] Creatinine 2.19(H) 0.80 - 1.50 mg/dL [facility] Sodium 135 135 - 145 mmol/L [facility] Comment:result rechecked-mo Potassium 5.0 3.5 - 5.0 mmol/L [facility] Comment: result rechecked-mo Please note: ??Patients with WBC >100,000 may have falsely elevated Potassium levels. ??For accurate Potassium quantification in these patients send serum separator tube (gold top) for subsequent determinations. ??Contact the Clinical Chemistry Laboratory if there are any questions. Chloride 98 98 - 107 mmol/L [facility] Comment:result rechecked-mo Carbon Dioxide 25 22 - 31 mmol/L [facility] Anion Gap 12 5 - 15 mmol/L [facility] Calcium 8.0(L) 8.5 - 10.5 mg/dL [facility] Est Glomerular Filtration Rate 31(L) >=60 [facility] Comment: The reported eGFR should be multiplied by 1.2 for patients. The MDRD is not an appropriate measure of renal function for patients with body mass extremes or in patients with acute kidney failure. http://[employer]/DHnkdep http://[employer]/DHMCnkf Blood specimen (specimen) 06/02/2017 1:36 AM EST 06/02/2017 1:48 AM EST Narrative Resulting Agency Comment Spec In Lab Gianna Tavarez MD CHEMISTRY ORDERABL ES [facility] [address] * (ABNORMAL) Differential, Automated (06/01/2017 3:27 AM EST) Neutrophil % 80.7 % [facility] Neutrophil Absolute 3.79 1.70 - 6.10 x10(3)/mc L [facility] Lymph % 11.3 % [facility] Lymphocytes Abs 0.5(L) 0.9 - 3.2 x10(3)/mc L [facility] Monocyte % 7.0 % [facility] Monocyte Abs 0.3 0.3 - 0.9 x10(3)/mc L [facility] Eos % 0.6 % [facility] Eosinophils Abs 0.0 0.0 - 0.4 x10(3)/mc L [facility] Basophil % 0.2 % [facility] Baso Absolute 0.0 0.0 - 0.1 x10(3)/mc L [facility] Immature Gran % 0.20 % [facility] Comment: Immature granulocytes(IG's)percentage and absolute count will include metamyelocytes, myelocytes, and promyelocytes. Blood smears from CBCs yielding IG's will be scanned manually for concordance. If this scan disagrees with the automated IG or if promyelocytes are noted, a manual differential will be performed. Immature Gran Absolute 0.01 0.00 - 0.04 x10(3)/[facility] Blood specimen (specimen) 06/01/2017 3:27 AM EST 06/01/2017 3:40 AM EST Narrative Resulting Agency Comment Spec In Lab Gianna Tavarez MD HEMATOLOGY ORDERAB LES [facility] [address] * (ABNORMAL) Hemogram (06/01/2017 3:27 AM EST) White Blood Cell 4.7 4.0 - 9.5 x10(3)/[facility] Red Blood Cell 3.01(L) 4.58 - 5.54 x10(6)/[facility] Hemoglobin 8.7(L) 13.7 - 16.5 gm/dL [facility] Hematocrit 28.7(L) 40.5 - 48.5 % [facility] Mean Cell Volume 95.3(H) 82.9 - 93.1 [facility] Mean Cell Hemoglobin 28.9 27.5 - 32.1 pg [facility] Mean Cell Hemoglobin Concentration 30.3(L) 32.0 - 35.7 gm/dL [facility] Platelet 237 145 - 357 x10(3)/[facility] RDW Standard Deviation 56.2(H) 36.0 - 45.0 [facility] RDW coefficient of variation 16.2(H) 11.4 - 13.8 % [facility] Mean Platelet Volume 9.1 7.6 - 12.9 [facility] NRBC% auto 0.0 % [facility] NRBC Absolute 0.000 0.000 - 0.000 x10(3)/[facility] Blood specimen (specimen) 06/01/2017 3:27 AM EST 06/01/2017 3:40 AM EST Narrative Resulting Agency Comment Spec In Lab Gianna Tavarez MD HEMATOLOGY ORDERAB LES Performing Organization Address [facility] Co de Phone Number [facility] [address] * Phosphorus (06/01/2017 3:27 AM EST) Phosphorus 3.7 2.5 - 4.5 mg/dL [facility] Blood specimen (specimen) 06/01/2017 3:27 AM EST 06/01/2017 3:40 AM EST Narrative Resulting Agency Comment Spec In Lab Gianna Tvaarez MD CHEMISTRY ORDERABL ES Performing Organization Address [facility] de Phone Number [facility] [address] * Magnesium (06/01/2017 3:27 AM EST) Magnesium 0.72 0.69 - 1.07 mmol/L [facility] Blood specimen (specimen) 06/01/2017 3:27 AM EST 06/01/2017 3:40 AM EST Narrative Resulting Agency Comment Spec In Lab Gianna Tavarez MD CHEMISTRY ORDERABL ES Performing Organization Address [facility] de Phone Number [facility] [address] * (ABNORMAL) Basic Metabolic Panel (non-fasting) (06/01/2017 3:27 AM EST) Glucose 104 65 - 199 mg/dL [facility] Comment:Diabetes: >=200 mg/d L plus symptoms Blood Urea Nitrogen 36(H) 10 - 20 mg/dL [facility] Creatinine 2.16(H) 0.80 - 1.50 mg/dL [facility] Sodium 142 135 - 145 mmol/L [facility] Potassium 5.4(H) 3.5 - 5.0 mmol/L [facility] Comment: Please note: ??Patients with WBC >100,000 may have falsely elevated Potassium levels. ??For accurate Potassium quantification in these patients send serum separator tube (gold top) for subsequent determinations. ??Contact the Clinical Chemistry Laboratory if there are any questions. Chloride 107 98 - 107 mmol/L [facility] Carbon Dioxide 24 22 - 31 mmol/L [facility] Anion Gap 11 5 - 15 mmol/L [facility] Calcium 7.6(L) 8.5 - 10.5 mg/dL [facility] Est Glomerular Filtration Rate 32(L) >=60 [facility] Comment: The reported eGFR should be multiplied by 1.2 for patients. The MDRD is not an appropriate measure of renal function for patients with body mass extremes or in patients with acute kidney failure. http://[employer]/DHnkdep http://[employer]/DHMCnkf Blood specimen (specimen) 06/01/2017 3:27 AM EST 06/01/2017 3:40 AM EST Narrative Resulting Agency Comment Spec In Lab Gianna Tavarez MD CHEMISTRY ORDERABL ES [facility] [place] [address] * (ABNORMAL) Differential, Automated (05/31/2017 3:17 PM EST) Neutrophil % 88.8 % [facility] Neutrophil Absolute 5.84 1.70 - 6.10 x10(3)/mc L [facility] Lymph % 7.3 % [facility] Lymphocytes Abs 0.5(L) 0.9 - 3.2 x10(3)/mc L [facility] Monocyte % 2.7 % [facility] Monocyte Abs 0.2(L) 0.3 - 0.9 x10(3)/mc L [facility] Eos % 0.5 % [facility] Eosinophils Abs 0.0 0.0 - 0.4 x10(3)/[facility] Basophil % 0.2 % [facility] Baso Absolute 0.0 0.0 - 0.1 x10(3)/[facility] Immature Gran % 0.50 % [facility] Comment: Immature granulocytes(IG's)percentage and absolute count will include metamyelocytes, myelocytes, and promyelocytes. Blood smears from CBCs yielding IG's will be scanned manually for concordance. If this scan disagrees with the automated IG or if promyelocytes are noted, a manual differential will be performed. Immature Gran Absolute 0.03 0.00 - 0.04 x10(3)/[facility] Blood specimen (specimen) 05/31/2017 3:17 PM EST 05/31/2017 3:26 PM EST Narrative Resulting Agency Comment Spec In Lab Gianna Tavarez MD HEMATOLOGY ORDERAB LES [facility] [place] [id number] * (ABNORMAL) Hemogram (05/31/2017 3:17 PM EST) White Blood Cell 6.6 4.0 - 9.5 x10(3)/[facility] Red Blood Cell 2.94(L) 4.58 - 5.54 x10(6)/[facility] Hemoglobin 8.6(L) 13.7 - 16.5 gm/dL [facility] Hematocrit 28.4(L) 40.5 - 48.5 % [facility] Mean Cell Volume 96.6(H) 82.9 - 93.1 fL [facility] Mean Cell Hemoglobin 29.3 27.5 - 32.1 pg [facility] Mean Cell Hemoglobin Concentration 30.3(L) 32.0 - 35.7 gm/dL [facility] Platelet 254 145 - 357 x10(3)/mc L [facility] RDW Standard Deviation 57.1(H) 36.0 - 45.0 fL [facility] RDW coefficient of variation 16.3(H) 11.4 - 13.8 % [facility] Mean Platelet Volume 9.1 7.6 - 12.9 fL [facility] NRBC% auto 0.0 % [facility] NRBC Absolute 0.000 0.000 - 0.000 x10(3)/mc L [facility] Blood specimen (specimen) 05/31/2017 3:17 PM EST 05/31/2017 3:26 PM EST Narrative Resulting Agency Comment Spec In Lab Gianna Tavarez MD HEMATOLOGY ORDERAB LES Performing Organization Address [facility] Co de Phone Number [facility] [address] * Phosphorus (05/31/2017 3:17 PM EST) Phosphorus 3.4 2.5 - 4.5 mg/dL [facility] Blood specimen (specimen) 05/31/2017 3:17 PM EST 05/31/2017 3:26 PM EST Narrative Resulting Agency Comment Spec In Lab Gianna Tavarez MD CHEMISTRY ORDERABL ES Performing Organization Address [facility] Co wy Phone Number [facility] [facility] [place] [place] [address] * (ABNORMAL) Magnesium (05/31/2017 3:17 PM EST) Magnesium 0.65(L) 0.69 - 1.07 mmol/L [facility] Blood specimen (specimen) 05/31/2017 3:17 PM EST 05/31/2017 3:26 PM EST Narrative Resulting Agency Comment Spec In Lab Gianna Tavarez MD CHEMISTRY ORDERABL ES Performing Organization Address [facility] Co de Phone Number [facility] [place] [address] * (ABNORMAL) Basic Metabolic Panel (non-fasting) (05/31/2017 3:17 PM EST) Glucose 117 65 - 199 mg/dL [facility] Comment:Diabetes: >=200 mg/d L plus symptoms Blood Urea Nitrogen 39(H) 10 - 20 mg/dL [facility] Creatinine 2.31(H) 0.80 - 1.50 mg/dL [facility] Sodium 148(H) 135 - 145 mmol/L [facility] Potassium 5.4(H) 3.5 - 5.0 mmol/L [facility] Comment: Please note: ??Patients with WBC >100,000 may have falsely elevated Potassium levels. ??For accurate Potassium quantification in these patients send serum separator tube (gold top) for subsequent determinations. ??Contact the Clinical Chemistry Laboratory if there are any questions. Chloride 112(H) 98 - 107 mmol/L [facility] Carbon Dioxide 22 22 - 31 mmol/L [facility] Anion Gap 14 5 - 15 mmol/L [facility] Calcium 8.0(L) 8.5 - 10.5 mg/dL [facility] Est Glomerular Filtration Rate 30(L) >=60 [facility] Comment: The reported eGFR should be multiplied by 1.2 for patients. The MDRD is not an appropriate measure of renal function for patients with body mass extremes or in patients with acute kidney failure. http://RadiumOne.Majitek/DHnkdep http://RadiumOne.Majitek/DHMCnkf Blood specimen (specimen) 05/31/2017 3:17 PM EST 05/31/2017 3:26 PM EST Narrative Resulting Agency Comment Spec In Lab Gianna Tavarez MD CHEMISTRY ORDERABL ES [facility] [place] [place] [address] * Specimen to Pathology (surgical or derm) (05/31/2017 2:14 PM EST) AP Specimen 05/31/2017 2:14 PM EST 05/31/2017 2:14 PM EST Narrative [facility] - 05/31/2017 2:14 PM EST Specimen requisition ordered. ??Separate Pathology report to follow Gianna Tavarez MD PATHOLOGY/CYTOLOGY ORDERABLES Performing Organization Address [facility] Co de Phone Number [facility] [place] [place] [address] * Surgical Pathology Report (05/31/2017 2:12 PM EST) Final Diagnosis [id number] ? Location: 2WST; 0210; A The signing [...] A7, A14 Normal Block(s): ?? A15 CAP [facility] 2017 Feb WHO Update Release Electronically signed by: ??Juan Carlos Jacob MD Verified: ??06/08/2017 ?Pathologist Performed at: ??-[facility] Dept. of Pathology, [facility], [place], [place] DISCUSSION Some morphologic features including oncocytic [...] (8-9) lesion I to renal pelvis; (10) career representative lesion I; (11) lesion II to surface; (12) lesion II to pelvis, including lesion I; (13) lesion II to renal parenchyma; (14) career representative lesion II; (15-16) career representative renal parenchyma. (R16) ??crj 06/08/2017 4:44 PM EST [facility] SPECIMEN FROM KIDNEY / Unknown 05/31/2017 2:12 PM EST 05/31/2017 2:12 PM EST Gianna Tavarez MD PATHOLOGY/CYTOLOGY ORDERABLES [facility] [place] [place] [address] * Molecular Genetics Report (05/31/2017 1:20 PM EST) Molecular Report [id number] ? Location: 2WST; 0210; A The signing pathologist has (i) examined the relevant preparation(s) for the specimen(s) and (ii) rendered or confirmed the diagnosis(es). . ?Molecular Genetics RESULTS Please refer to Pathology Report [id number] for final pathology diagnosis. TEST: ?? 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 [id number]: A region of tumor, identified microscopically [...] S, Luis GJ, Steven VV, Marquis RS, Milda VE, Chelo J. Subtyping of renal cortical neoplasms in fine needle aspiration biopsies using a decision tree based on genomic alterations detected by fluorescence in situ hybridization. BJU Int. 2014 Jun;114(6):881-90. [PMID: [id number]] Nena LD, Kaitlynn M, Li MM, Ace ML, Shreya DJ; Working Group of the [employer] ([employer]) Laboratory Horse Rider Committee. [employer] technical standards and guidelines: microarray analysis for chromosome abnormalities in neoplastic disorders. Cecilia Med. 2013 Dec;15(6):484-94. [PMID: [id number]]. METHODS: ?? DNA was isolated from formalin-fixed, [...] its performance characteristics determined by ? the [facility] Molecular Pathology Laboratory. It has not been cleared or approved ? by the U.S. Food and Drug Administration (FDA). The FDA has determined that ? such clearance or approval is not necessary. This test is used for clinical ? purposes. It should not be regarded as investigational or for research. This ? laboratory is certified under the Clinical Laboratory Improvement Amendments ? of 1987 (CLIA) as qualified to perform high-complexity clinical laboratory ? testing. Reviewed by: Danny Cohen, PhD Linux Solaris Administrator, Molecular Pathology _ Electronically signed by: ??Nidia JONES, Juan Carlos Grubbs Verified: ??06/30/2017 ?Pathologist Performed at: ??-[facility] Dept. of Pathology, [facility] LABORATORY 05/31/2017 1:20 PM EST Gianna Tavarez MD PATHOLOGY/CYTOLOGY ORDERABLES [facility] [place] [address] * (ABNORMAL) BLOOD GAS 2 ARTERIAL (05/31/2017 1:20 PM EST) pH, Arterial 7.35(L) 7.35 - 7.45 [facility] PCO2, Arterial 41 35 - 45 mmHg [facility] PO2, Arterial 150(H) 85 - 104 mmHg [facility] Bicarbonate, Arterial 22.1 20.0 - 26.0 mmol/L [facility] Base Excess, Arterial -3.4(L) -3.0 - 3.0 mmol/L [facility] Hgb Blood Gas 9.1(L) 13.7 - 16.5 gm/dL [facility] Oxyhemoglobin, Arterial 98.1(H) 94.0 - 97.0 % [facility] Carboxyhemoglob in, Arterial 0.2 % [facility] Comment: Nonsmokers: 0.5-1.5% COHB Smokers: Variable, but usually less than 10% Toxic: 20-30% COHB Lethal: Greater than 60% COHB Methemoglobin, Arterial 0.3 <=1.5 % [facility] Na Whole Blood 139 135 - 145 mmol/L [facility] K Whole Blood 5.4(H) 3.5 - 5.0 mmol/L [facility] Comment: Please note: Patients with WBC >100,000 may have falsely elevated Potassium levels. Contact the Clinical Chemistry Laboratory if there are any questions. ICa Whole Blood 1.06(L) 1.15 - 1.33 mmol/L [facility] Comment: Note: ??Total bilirubin higher than 20 mg/dL may lead to falsely low ionized calcium. CL Whole Blood 112(H) 98 - 107 mmol/L [facility] Gluc Whole Bld 110 65 - 199 mg/dL [facility] Comment:Diabetes: >=200 mg/d L plus symptoms. Lactate WB 1.2 0.5 - 2.2 mmol/L [facility] Blood specimen (specimen) 05/31/2017 1:20 PM EST 05/31/2017 1:20 PM EST Gianna Tavarez MD POINT OF CARE TEST ORDERABLES Performing Organization Address City/State/[facility] Co de Phone Number [facility] [place] [address] * (ABNORMAL) BLOOD GAS 2 ARTERIAL (05/31/2017 11:13 AM EST) pH, Arterial 7.39 7.35 - 7.45 [facility] PCO2, Arterial 38 35 - 45 mmHg [facility] PO2, Arterial 337(H) 85 - 104 mmHg [facility] Bicarbonate, Arterial 22.0 20.0 - 26.0 mmol/L [facility] Base Excess, Arterial -3.0 -3.0 - 3.0 mmol/L [facility] Hgb Blood Gas 9.8(L) 13.7 - 16.5 gm/dL [facility] Oxyhemoglobin, Arterial 98.7(H) 94.0 - 97.0 % [facility] Carboxyhemoglob in, Arterial 0.3 % [facility] Comment: Nonsmokers: 0.5-1.5% COHB Smokers: Variable, but usually less than 10% Toxic: 20-30% COHB Lethal: Greater than 60% COHB Methemoglobin, Arterial 0.3 <=1.5 % [facility] Na Whole Blood 140 135 - 145 mmol/L [facility] K Whole Blood 4.7 3.5 - 5.0 mmol/L [facility] Comment: Please note: Patients with WBC >100,000 may have falsely elevated Potassium levels. Contact the Clinical Chemistry Laboratory if there are any questions. ICa Whole Blood 1.13(L) 1.15 - 1.33 mmol/L [facility] Comment: Note: ??Total bilirubin higher than 20 mg/dL may lead to falsely low ionized calcium. CL Whole Blood 111(H) 98 - 107 mmol/L [facility] Gluc Whole Bld 109 65 - 199 mg/dL [facility] Comment:Diabetes: >=200 mg/d L plus symptoms. Lactate WB 1.1 0.5 - 2.2 mmol/L [facility] Blood specimen (specimen) 05/31/2017 11:13 AM EST 05/31/2017 11:13 AM EST Gianna Tavarez MD POINT OF CARE TEST ORDERABLES [facility] [place] [id number] * Prepare RBC (05/31/2017 10:25 AM EST) Dispensed? Yes [facility] Blood specimen (specimen) 05/31/2017 10:25 AM EST 05/31/2017 10:20 AM EST Gianna Tavarez MD BLOOD BANK PRODUCT ORDERABLES [facility] [place] [address] * POCT HGB (05/31/2017 10:00 AM EST) POC Hemoglobin 7.8 g/dL Blood specimen (specimen) 05/31/2017 10:00 AM EST Ilda Montero MD POINT OF CARE TEST O RDERABLES * Prothrombin Time (05/31/2017 9:06 AM EST) Prothrombin Time 13.9 11.8 - 14.0 sec [facility] International Normalization Ratio 1.1 0.9 - 1.1 [facility] Comment: An INR <2.0 [...] Comment Spec In Lab Cally Lopez Olson ASSESSMENT EXPERT HEMATOLOGY ORDERABLE S Performing Organization Address City/State/[facility] Co de Phone Number [facility] [place] [address] documented in this encounter Visit Diagnoses Not on filedocumented in this encounter Admitting Diagnoses Diagnosis Renal [...] Given 06/01/2017 9:12 AM EST 150 mg dilTIAZem (DILTIAZEM CD) ER capsule 120 [...] Given 05/31/2017 9:00 PM EST 50 mg levETIRAcetam (KEPPRA) tablet 1,000 mg 1,000 mg, [...] Given 06/01/2017 5:00 AM EST 88 mcg meTOPROLOL tartrate (LOPRESSOR) tablet 25 mg 25 mg, Oral, 3 TIMES DAILY, First dose (after last modification) on Wed06/01/17 at 1000, Until Discontinued, Hold for sbp <100 or hr <55, Routine Given 06/02/2017 9:21 AM EST 25 mg Given 06/01/2017 8:57 PM EST 25 mg Given 06/01/2017 4:41 PM EST 25 mg mycophenolate (CELLCEPT) capsule 250 mg 250 [...] ineffective use prochlorperazine. , Routine prochlorperazine (COMPAZINE) tablet 10 mg 10 mg, Oral, EVERY 6 HOURS PRN, Starting on Wed05/31/17 at 1808, Until Wed06/02/17 at 1602, Nausea, Nausea/Vomiting, If multiple antiemetics are ordered, use ondansetron first. If ondansetron ineffective use prochlorperazine. PO Preferred. If patient unable to take PO, may give IV if ordered., Routine sodium bicarbonate tablet 650 mg 650 mg, [...] Procedure), Routine 0945 (Given - Provider: Rosalie Fowler, SAVANNA) acetaminophen (TYLENOL) tablet 1,000 mg 1,000 mg, Oral, EVERY 6 HOURS SCHEDULED, First dose on Wed05/31/17 at 1800, Until Discontinued, Routine 1854 (Given - Provider: Caitlin Vicente RN) 0004 (Given - Provider: Radha Choudhary RN)0500 (Given - Provider: Radha Choudhary, SAVANNA)1331 (Given - Provider: Leslie Turner RN)1859 (Given - Provider: Leslie Turner RN)2347 (Given - Provider: Jenny French RN) 0647 (Given - Provider: Jenny French RN)1159 (Given - Provider: Krysta Cardona, SAVANNA) allopurinol (ZYLOPRIM) tablet 150 mg 150 mg, Oral, DAILY, First dose on Wed06/01/17 at 0900, Until Discontinued, Routine 0912 (Given - Provider: Leslie Turner RN) 0918 (Given - Provider: Krysta Cardona RN) ceFAZolin (ANCEF) 2g in dextrose 5% 100 mL (COMPLETED) 2 g, Intravenous, CHILD CARE LEAD TEACHER TO O.R., 1 dose, On Wed05/31/17 at [...] Minutes, Indication for (Active or Suspected): Prophylaxis 2099 (New Bag - Provider: Radha Choudhary RN)2129 (Stopped - Provider: Radha Choudhary RN) 0458 (New Bag - Provider: Radha Choudhary RN)0528 (Stopped - Provider: Radha Choudhary RN) dilTIAZem (DILTIAZEM CD) ER capsule 120 mg 120 mg, Oral, DAILY, First dose on Wed06/01/17 at 0900, Until Discontinued, DO NOT CRUSH OR OPEN Hold for sbp < 120, Routine 913 (Given - Provider: Leslie Turner RN) 918 (Given - Provider: Krysta Cardona, SAVANNA) docusate sodium (COLACE) capsule 100 mg 100 mg, Oral, 2 TIMES DAILY, First dose on Wed05/31/17 at 2100, Until Discontinued, Routine 2099 (Given - Provider: Radha Choudhary RN) 914 (Given - Provider: Leslie Turner RN)2055 (Given - Provider: Jenny French RN) 09 (Given - Provider: Krysta Cardona, SAVANNA) enoxaparin (LOVENOX) injection 40 mg 40 mg, Subcutaneous, NIGHTLY, First dose on Wed05/31/17 at 2100, Until Discontinued, Routine 2099 (Given - Provider: Radha Choudhary RN) 2055 (Given - Provider: Jenny French, SAVANNA) 133 (Given - Provider: Krysta Cardona, SAVANNA) heparin (Porcine) subcutaneous injection 5,000 Units (COMPLETED) 5,000 Units, Subcutaneous, CHILD CARE LEAD TEACHER TO O.R., 1 dose, On Wed05/31/17 at 0945, Day of Surgery (Day of Procedure), Routine 1125 (Given - Provider: Ananth Musa - Comment: left shoulder) hydrALAZINE (APRESOLINE) tablet 50 mg 50 mg, Oral, 2 TIMES DAILY, First dose on Wed05/31/17 at 2100, Until Discontinued, Hold for sbp <120, Routine 2099 (Given - Provider: Radha Choudhary RN) 912 (Given - Provider: Leslie Turner RN)2055 (Given - Provider: Jenny French RN) 0919 (Not Given - Provider: Krysta Cardona RN [...] Routine 0950 (Given - Provider: Leslie Turner RN)164 (Given - Provider: Leslie Turner, SAVANNA)2056 (Given - Provider: Jenny French RN) 0921 (Given - Provider: Krysta Cardona RN) meTOPROLOL tartrate (LOPRESSOR) tablet 50 mg (CANCELED) 50 mg, Oral, 3 TIMES DAILY, First dose on Wed05/31/17 at 2100, Until Discontinued, Hold for sbp <100 or hr <55, Routine 2099 (Given - Provider: Radha Choudhary RN) mycophenolate (CELLCEPT) capsule 250 mg 250 [...] 921 (Given - Provider: Krysta Cardona RN) pantoprazole (PROTONIX) tablet 40 mg 40 mg, Oral, DAILY, First dose on Wed06/01/17 at 0900, Until Discontinued, DO NOT CRUSH OR OPEN 914 (Given - Provider: Leslie Turner RN) 921 (Given - Provider: Krysta Cardona RN) sodium bicarbonate tablet 650 mg 650 mg, Oral, 2 TIMES DAILY, First dose on Wed05/31/17 at 2100, Until Discontinued, Routine 2100 (Given - Provider: Radha Choudhary RN) 0915 (Given - Provider: Leslie Turner RN)2056 (Given - Provider: Jenny French RN) 09 (Given - Provider: Krysta Cardona RN) sodium [...] Discontinued, Routine 2100 (Given - Provider: Radha Choudhary, RN) 0915 (Given - Provider: Leslie Turner, RN)2058 (Given - Provider: Jenny French, SAVANNA) 0923 (Given - Provider: Krysta Cardona, SAVANNA) Continuous Medication Order 05/31/2017 06/01/2017 06/02/2017 lactated Ringers infusion 1,000 mL (CANCELED) 1,000 mL, at 100 mL/hr, Intravenous, CONTINUOUS, Starting on Wed05/31/17 at 0945, Until Wed05/31/17 at 1748, Day of Surgery (Day of Procedure) 0957 (New Bag - Provider: Rosalie Fowler, SAVANNA)1029 (New Bag - Provider: Ananth Musa)1332 (Stopped - Provider: Ananth Musa)1600 (Stopped - Provider: Judith Dawson, SAVANNA) lactated Ringers infusion (CANCELED) 75 mL/hr, Intravenous, CONTINUOUS, Starting on Wed05/31/17 at 1600, Until Wed06/01/17 at 0851 1538 (New Bag - Provider: Judith Dawson, SAVANNA) PRN Medication Order 05/31/2017 06/01/2017 06/02/2017 bisacodyl [...] Jenny French, SAVANNA)0058 (Given - Provider: Jenny A French, RN) HYDROmorphone (DILAUDID) injection 0.3 mg 0.3 [...] Day of Surgery (Day of Procedure), Routine 09 (Given - Provider: Rosalie Fowler RN) lidocaine [...] Recovery, Routine 1535 (Given - Provider: Judith Dawson RN) prochlorperazine (COMPAZINE) tablet 10 mg(Linked Group 2) [...] Recovery 1558 (Given - Provider: Judith Dawson, RN)1629 (Given - Provider: Judith Dawson, RN) sodium chloride 0.9 % flush 5-20 [...] Routine documented in this encounter Care Teams Senior Gis Analyst Relationship Specialty Start Date End Date Carroll Fuentes DO [address] [place] [address] PCP - General 09/23/11 10/20/22 documented as of this encounter
--- OUTSIDE RECORDS SUMMARY | 2024-04-22 11:09 | XMS_ITS | Encounter Summary ---
[place] [address] Care Team Providers Care Drum Sander Offbearer Name Role Phone Carroll Fuentes DO Primary Care Provider Reason for Visit * Reason Onset Date Comments Medication Refill 05/27/2017 Encounter Details Date Type Department Care Team (Late st Contact Info) Description 05/27/2017 Refill Solid [place] [address] Crystal Brown, [facility] Social History Tobacco Use Types Packs/Day [...] on filedocumented in this encounter Care Teams Drum Sander Offbearer Relationship Specialty Start Date End Date Carroll Fuentes DO [address] [place] [address] PCP - General 09/23/11 10/20/22 documented as of this encounter
--- OUTSIDE RECORDS SUMMARY | 2024-04-22 11:09 | XMS_ITS | Encounter Summary ---
Author Organization [facility] Address [facility] [place] [address] Care Team Providers Care Form Grader Operator Name Role Phone Carroll Fuentes DO Primary Care Provider [phone] Encounter Details Date Type Department Care Team (Latest Contact Info) Description 05/26/2017 11:28 AM EST - 05/26/2017 11:59 PM [facility] Hospital Encounter XRay at [address] [place] [address] Jax Mills MD [facility] [place] [address] Renal mass Discharge Disposition: Home Social History [...] by Dr. Fuentes. You have refills at [facility] in [facility]. 06/02/2017 06/28/2017 warfarin (COUMADIN) 5 mg Tablet Take 1 tablet (5 mg) by mouth daily. PLEASE RESTART THIS MEDICINE ON 06/07. GO FOR INR ON 06/08. FOLLOW UP WITH DR FUENTES'S OFFICE. 06/02/2017 05/04/2018 levETIRAcetam (KEPPRA) 500 mg Tablet Take 500 [...] Date; 11-26-02 180 capsule 11 05/16/2017 2018 warfarin (COUMADIN) 5 mg Tablet Take 1 tablet (5 mg) by mouth daily. 60 tablet 11 05/16/2017 06/02/2017 sodium bicarbonate 650 mg Tablet Take 1 tablet by mouth 2 times daily. 60 tablet 05/16/2017 06/28/2017 hydrALAZINE (APRESOLINE) 50 mg Tablet Take 1 tablet by mouth 2 times daily. 180 tablet 3 03/09/2017 12/29/2017 CARTIA XT 120 mg Capsule, Sust. Release 24 hrIndications:H/O kidney transplant take 1 capsule by mouth once daily 90 capsule 01/29/2017 05/31/2017 allopurinol (ZYLOPRIM) 100 mg TabletIndications:H igh level of uric acid in blood Take 1 and 1/2 tablet daily. 45 tablet 11 01/07/2017 07/23/2017 tacrolimus (PROGRAF) 1 mg Capsule Take 1 capsule twice daily. Kidney transplant 11/26/2002. ICD code Z94.0 60 capsule 11 11/04/2016 05/27/2017 multivitamin Capsule Take 1 capsule by mouth daily. 2018 acetaminophen (TYLENOL) 500 mg Tablet Take 2 tablets by mouth every 8 hours. 30 tablet 1 02/06/2016 06/02/2017 levothyroxine (SYNTHROID) 100 mcg Tablet Take 100 mcg by mouth daily. 2018 metoprolol tartrate (LOPRESSOR) 50 mg tablet Take 50 mg by mouth 3 times daily. 12/03/2010 10/20/2017 documented as of this encounter Plan of Treatment Not on file documented as of this encounter Procedures Procedure Name Priority Date/Time Associated Diagnosis Comments XR CHEST PA AND LATERAL Routine 05/26/2017 11:39 AM EST Renal mass documented in this encounter Results * XR Chest PA [...] of pulmonary metastases. Electronically signed by: CHETAN [facility], at107/26/2016 11:44 AM Jax F Sverrisson MD IMG DX ORDERABLES documented in this encounter Visit Diagnoses Diagnosis Renal mass Unspecified disorder of kidney and ureter documented in this encounter Care Teams Form Grader Operator Relationship Specialty Start Date End Date Carroll Fuentes DO [address] [place] [address] PCP - General 09/23/11 10/20/22 documented as of this encounter
--- OUTSIDE RECORDS SUMMARY | 2024-04-22 11:09 | XMS_ITS | Encounter Summary ---
[place] [address] Care Team Providers Care Relationship Assoc Name Role Phone Carroll Fuentes DO Primary Care Provider Reason for Visit * Reason Onset Date Comments Medication Refill 05/31/2017 Encounter Details Date Type Department Care Team (Late st Contact Info) Description 05/31/2017 Refill [place] [address] Crystal Brown CMA H/O kidney transplant Social History Tobacco Use [...] transplant documented in this encounter Care Teams Relationship Assoc Relationship Specialty Start Date End Date Carroll Fuentes DO [address] [place] [address] PCP - General 09/23/11 10/20/22 documented as of this encounter
--- OUTSIDE RECORDS SUMMARY | 2024-04-22 11:09 | XMS_ITS | Encounter Summary ---
Author Organization [facility] Address [facility] [place] [address] Care Team Providers Care Dispatcher Tugboat Name Role Phone AlfredoCarroll allison Primary Care Provider [phone] Encounter Details Date Type Department Care Team (Late st Contact Info) Description 05/26/2017 10:20 AM EST Clinical [place] [address] Renal mass Social History Tobacco Use Types [...] Taken Comments Blood Pressure - - Pulse 61 05/26/2017 10:18 AM EST Temperature - - Respiratory Rate - - Oxygen Saturation 97% 05/26/2017 10:18 AM EST Inhaled Oxygen Concentration - - Weight 79.5 kg (175 lb 3.2 oz) 05/26/2017 10:18 AM EST Height 177.8 cm (5' 10) 05/26/2017 10:18 AM EST Body Mass Index 25.14 05/26/2017 10:18 AM EST documented in this encounter Progress Notes * Yasmeen Reddy RN - 05/26/2017 10:20 AM EST PAT questionnaire reviewed with patient while in Pre Admission testing. Pt has tolerated anesthesiain the past. Pt reports acid reflux, takes medication for this. Pt reports no seizures since 2001. Pre-operative instruction booklet reviewed. Patient verbalizes a good understanding of all information reviewed. PLAN: Testing: Type and screen, other labs, EKG, sent to for CXR Special medication instructions: Pt to contact Dr Fuentes (PCP) re: coumadin instructions today. Procedure date: 05/31/17 Dr Mills documented in this encounter Plan of Treatment Not on file documented as of this encounter Procedures Procedure Name Priority Date/Time Associated Diagnosis Comments EKG 12-LEAD Routine 05/26/2017 11:16 AM EST Renal mass documented in this encounter Results * EKG 12 Lead (05/26/2017 11:16 AM EST) Ventricular rate 45 BPM MUSE SYSTEM Atrial Rate 45 BPM MUSE SYSTEM P-R Interval 156 ms MUSE SYSTEM QRS Duration 92 ms MUSE SYSTEM Q-T Interval 476 ms MUSE SYSTEM QTC Calculated (Bezet) 411 ms MUSE SYSTEM Calculated P [place] 68 degrees MUSE SYSTEM Calculated R [place] 64 degrees MUSE SYSTEM Calculated T [place] 57 degrees MUSE SYSTEM INTERPRETATION Marked sinus bradycardia Abnormal ECG When compared with ECG of 11-MAY-2017 21:18, No significant change was found Confirmed by MD Magaly, Ministerio ([id number]) on 05/26/2017 4:19:28 PM MUSE SYSTEM 05/26/2017 11:1 6 AM EST 05/26/2017 4:19 PM EST Jax Mills MD ECG ORDERABLES MUSE SYSTEM documented in this encounter Visit Diagnoses Diagnosis Renal mass Unspecified disorder of kidney and ureter documented in this encounter Care Teams Dispatcher Tugboat Relationship Specialty Start Date End Date Carroll Fuentes DO [address] [place] [address] PCP - General 09/23/11 10/20/22 documented as of this encounter
--- OUTSIDE RECORDS SUMMARY | 2024-04-22 11:09 | XMS_ITS | Encounter Summary ---
Author Organization [facility] Address [facility] [place] [address] Care Team Providers Care Robotic Toy Inventor Name Role Phone Carroll Fuentes DO Primary Care Provider [phone] Encounter Details Date Type Department Care Team (Late st Contact Info) Description 05/28/2017 [place] [id number] Antony Will MD [facility] [place] [address] Social History Tobacco Use Types Packs/Day Years [...] encounter Miscellaneous Notes * Telephone Encounter - Reynaldo Martinez - 05/28/2017 1:01 PM EST [facility] - - [place] Additional questions regarding dosage for this preoperative patient. * Telephone Encounter - Antony Will MD - 05/28/2017 8:34 AM EST Returned call to pharmacist working with the PCP for this patient. Scheduled for lap radical NTx this coming Wednesday. ? bridging lovenox preoperatively and postoperatively. ??He's holding coumadin, but they haven't started preop bridging because there was some confusion about the dosing given poor renal function and whether they needed therapeutic dosing vs prophylactic dosing. BMI is normal so the difference between therapeutic vs prophylactic dosing is small. Spoke with Dr. Mills who stated that it falls upon the PCP's recommendations re: if he feels he needs to be fully anticoagulated or not. He will defer to PCP to determine what prophylactic vs therapeutic regimen is adequate. Pharmacist will call back later today to discuss recommendations after talking with PCP. documented in this encounter Plan of Treatment Not on file documented as of this encounter Visit Diagnoses Not on filedocumented in this encounter Care Teams Robotic Toy Inventor Relationship Specialty Start Date End Date Carroll Fuentes DO [address] [place] [address] PCP - General 09/23/11 10/20/22 documented as of this encounter
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
--- OUTSIDE RECORDS SUMMARY | 2024-04-22 11:09 | XMS_ITS | Encounter Summary ---
Author Organization [facility] Address [facility] [place] [address] Care Team Providers Care Environmental Programs Specialist Name Role Phone AlfredoCarroll allison Primary Care Provider [phone] Encounter Details Date Type Department Care Team (Late st Contact Info) Description 05/28/2017 [place] [id number] Antoyn Will MD [facility] [place] [address] Social History Tobacco Use Types Packs/Day Years [...] encounter Miscellaneous Notes * Telephone Encounter - Antony Will MD - 05/28/2017 1:56 PM EST Return call from pharmacist yet again regarding anticoagulation for this patient who is going to the operating room this coming Wednesday. Pharmacist states that primary care physician states that DVT happened in 2002. Pharmacist is unclear why this patient is still anticoagulated. Given that this is an old DVT, I recommended that prophylactic heparin bridging should be provided prior to the OR. All other questions were answered. Pharmacist will get orders placed immediately. documented in this encounter Plan of Treatment Not on file documented as of this encounter Visit Diagnoses Not on filedocumented in this encounter Care Teams Environmental Programs Specialist Relationship Specialty Start Date End Date Carroll Fuentes DO [address] [place] [address] PCP - General 09/23/11 10/20/22 documented as of this encounter
--- OUTSIDE RECORDS SUMMARY | 2024-04-22 11:09 | XMS_ITS | Encounter Summary ---
Author Organization [facility] Address [facility] [place] [address] Care Team Providers Care Conversion Developer Name Role Phone Carroll Fuentes DO Primary Care Provider [phone] Encounter Details Date Type Department Care Team (Late st Contact Info) Description 06/23/2017 [place] [address] Jax Mills MD [facility] [place] [address] Social History Tobacco Use Types Packs/Day Years [...] on filedocumented in this encounter Care Teams Conversion Developer Relationship Specialty Start Date End Date Carroll Fuentes DO [address] [place] [address] PCP - General 09/23/11 10/20/22 documented as of this encounter
--- OUTSIDE RECORDS SUMMARY | 2024-04-22 11:10 | XMS_ITS | Encounter Summary ---
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 H/O kidney [place] [address] [facility] [place] [address] Referral ID Status Reason Start Date Expiration Date V isits Requested Visits Authorized [id number] Closed Specialty Service Requested 05/16/2017 05/16/2018 1 1 Reason for Visit * Auth/Cert Specialty Diagnoses / Procedures Referred By Shashi t Referred To Contact Diagnoses TRISTIAN (acute kidney injury) ACUTE ON CHRONIC RENAL FAILURE Procedures emergency IPI Referral ID Status Reason Start Date Expiration Date Visits Re quested Visits Authorized [id number] 1 1 Encounter Details Date Type Department Care Team (Latest Contact Info) Description 05/11/2017 7:05 PM EDT - 05/16/2017 1:45 PM EST Hospital Encounter [address] [place] [id number] [place] [address] [place] [address] [place] [address] TRISTIAN (acute kidney injury); S/P kidney transplant; Weight loss; End stage renal disease; Gout, unspecified cause, unspecified chronicity, unspecified site; Hypertension, unspecified type; Kidney replaced by transplant; IgA nephropathy; Basal cell carcinoma, unspecified site; Acne rosacea; Nevus; Rosacea; Anticoagulated on Coumadin; Non-neoplastic nevus; Polyp of colon, unspecified part of colon, unspecified type; Squamous cell carcinoma of skin of other parts of face; Aftercare following organ transplant; CKD (chronic kidney disease) stage 4, GFR 15-29 ml/min; Prophylactic immunotherapy; FPC current use of immunosuppressive drug; H/O kidney transplant Discharge Disposition: Home Social [...] Sign Reading Time Taken Comments Blood Pressure 126/81 05/16/2017 8:26 AM EST Pulse 57 05/16/2017 8:26 AM EST Temperature 37 ??C (98.6 ??F) 05/16/2017 8:26 AM EST Respiratory Rate 16 05/16/2017 8:26 AM EST Oxygen Saturation 98% 05/16/2017 8:26 AM EST Inhaled Oxygen Concentration - - Weight 71.3 kg (157 lb 3.2 oz) 05/11/2017 6:50 P M EDT Height 177.8 cm (5' 10) 05/11/2017 6:50 PM EDT Body Mass Index 22.56 05/11/2017 6:50 PM EDT documented in this encounter Discharge Summaries * Abner Adames MD - 05/16/2017 12:22 PM EST Discharge Summary Patient Name: Christy Ambrose Patient Age: 56 y.o. 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 Issues afterhours and on weekends will be handled by the Hospitalist staff on-call. Discharge Diagnoses (Hospital Problems) and Secondary Diagnoses (Chronic Problems): Active Hospital Problems Diagnosis ??? TRISTIAN (acute kidney injury) ??? Weight loss Resolved Hospital Problems Diagnosis Date Resolved No resolved problems to display. Active Non-Hospital Problems Diagnosis ??? CKD (chronic kidney disease) stage 4, GFR 15-29 ml/min ??? 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 H/O [...] ??? End stage renal disease Operations/Major Procedures: Operations: Procedure(s): EGD, UPPER GI ENDOSCOPY 05/12/2017 Procedure(s): EGD WITH BIOPSY (WRVU 2.49) 05/13/2017 Other Major Procedures: None History of Presentation: Mr. Ambrose is a 56 y.o. 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 He denies recent change in po intake and has been drinking close to 3L of fluid daily. Does note few episodes of nausea with vomiting earlier this week, and he has also been experiencing intermittent diarrhea though reports that stools have been largely regular for the past few weeks. Denies any NSAID use. No pain or straining on voiding. No fevers, chills. He denies any pain. Reports that he is continuing to make urine at a relatively normal amount, most recently voiding this afternoon. ?? He does note an approximately 20 lb weight loss over the past few weeks. Denies significant change in appetite. No night sweats. No difficulty swallowing. No black or tarry BM. Had a screening colonoscopy in 02/2017 in [facility] by Dr. Saab (sp?). ?? Denies any recent change in medication regimen. Has been taking cellcept 750 mg twice daily and tacrolimus 1 mg twice daily as prescribed. ?? Hospital Course: #TRISTIAN on CKD in pt s/p DDRT 2002 w/ hx IgA nephropathy/prograf toxicity #mixed AGMA/NAGMA #Hypernatremia Renal abnormalities noted on admission with Cr to 4.9 from baseline of ~ 3. FeNa low, and given history of diarrhea, and development of vomiting and UGIB c/w pre-renal etiology. Transplant renal U/S was without any concerning findings. Mixed acidosis and renal function improved with IVF and 2U pRBCas below. Sodium bicarb 1300 mg TID was also started given HCO3 to 12 on admission. Creatinine steadily improved to 2.2 on day of discharge. Bicarbonate was continued at dose of 650mg BID on discharge . Transplant medicine was consulted and Tacrolimus continued at 1 mg daily, cellcept was decreasedto 250 mg twice daily during hospitalization, and on discharge was left at this dose. Transplant medicine will follow up the patient in 2 weeks post discharge ? # UGIB On the evening of admission developed large emesis with bright red blood. This occurred in the setting of INR 5.9; with Hgb downtrending to 6.9. He was treated with IV Vit K, FFP to reverse INR, homewarfarin and BP medications were held, and he was started on IV PPI 2xD. GI was consulted with EGD showed severe esophagitis. He remained without further episodes of bleeding Serum CMV viral load negative. Coumadin was restarted at a lower dose on discharge, and the patient was sent home with PPI BID to help healing. ? # L flandreau Renal masses # Weight loss: Given history of ~25lb weight loss over past few weeks without significant change in po intake a CTC/A/P was pursued. While above esophagitis may contribute significantly to weight loss,there was anincidental finding of several flandreau L renal masses, largest 5.2 cm concerning for RCC vs metastatic lesions. A follow up renal ultrasound showed lesions that were. Case was discussed with urology, who recommended outpatient referral, which was ordered on a urgent basis (hospitalist 2 week referral). Email was sent to Dr. Segovia as well to provide information, although further action will wait until the appointment in the outpatient setting per urology. Otherwise labs showed normal prealbumin; and with resolutoin of reported diarrhea no infectious stool studies were pursued. TSH and A1c were within normal limits. Of note, also had unremarkable colonoscopy 02/2017. # Bradycardia During hospital had sinus bradycardia in 40s-50s, This was near his reported baseline and he remained asymptomatic. TSH was within normal limits. Lyme serology was pending on discharge. Vital Signs at Discharge: BP: 126/81, Heart Rate: 57, Temp: 37 ??C (98.6 ??F), Resp: 16, BMI (Calculated): 22.55 Height: 177.8 cm (5' 10) (05/11/171849) Weight - Scale: 71.3 kg (157 lb 3.2 oz) (05/11/171849) Functional and Cognitive Status: Good Important Studies and Lab Data: Labs: Last 3 wbc, hgb, hct plt Recent Labs 05/16/17 0456 05/15/17 0844 05/14/17 1826 WBC 3.5* 3.0* 2.9* HGB 8.4* 8.8* 8.0* HCT 24.3* 24.9* 23.6* PLATELET 160 167 172 Last 3 Lytes Recent Labs 05/16/17 0456 05/15/17 0844 05/14/17 1826 NA 139 140 139 K 3.7 3.6 3.3* CL 105 108* 109* CO2 20* 18* 17* BUN 32* 37* 44* CREATININE 2.20* 2.52* 2.70* Last 3 LFTs Recent Labs 05/15/17 0844 05/12/17 0618 11/26/16 1033 AST 12 11 21 ALT 10 10 13 ALKPHOS 103 101 98 BILITOT 0.6 0.3 0.3 BILIDIR 0.2 0.1 0.1 Studies: 05/11/17 -- CXR Asymmetric opacity superimposing onto the costochondral junction of the first rib on the right, presumably due to degenerative disease. However, given history of weight loss and immunosuppression andpresumably concern for malignancy a CT is recommended. Chest radiograph is not an accepted modalityto exclude pulmonary malignancy.UNEXPECTED FINDING. ?? 11/1/17 -- Transplant Renal U/S 1. ??Transplant kidney with dampened peak systolic velocities in??the midpolearcuate arteries [id number]. Allowing for differences in??scale, remainingvelocities and waveforms are stable. Normal??resistive indices. 2. ??The renal parenchyma is normal. No??perinephric fluid collection. 3. ??No collecting system dilation. ?? 05/14/17 -- CT C/A/P 1. ??There are three left renal lesions, the larger two appear solid ??and measure up to 5.2 cm in diameter. They are suspicious for either a primary renal tumor such as renal cell carcinoma however metastasis could also be considered. The smaller lesions has a more cystic appearance. Recommend ultrasound for further evaluation to confirm vascularity within the solid lesions given the limitationsof this nonenhanced study. 2. ??Degenerative arthropathy at the right sternoclavicular joint corresponds to opacity seen on recent chest radiograph. 3. ??No evidence of metastatic disease however exam is limited given the absence of intravenous contrast. 4. ??Trace bilateral pleural fluid. ?? 05/14/17 -- US Retroperitoneal Echogenic atrophic flandreau kidneys. Peripheral to a 2.5??cm left renal cyst are dual heterogeneous solid renal??massesone of which shows trace peripheral flow in one??of its shows small central flow.These are concerning for??malignancy. Pending Studies and Lab Data: Lyme serology Discharge Conditions/Prognosis: Home, prognosis good Discharge to: Home Updated Allergies/ADRs: Allergies Allergen [...] Medications: Your Medications New Medications Dose Details pantoprazole 20 mg Tbec Commonly known as: PROTONIX Take 1 tablet by mouth 2 times daily. 20 mg Quantity: 60 tablet Refills: 3 sodium bicarbonate 650 mg Tab Take 1 tablet by mouth 2 times daily. 650 mg Quantity: 60 tablet Refills: 0 Continued medications with new dosing Dose Details levETIRAcetam 500 mg Tab Commonly known as: KEPPRA take 1 tablet by mouth every morning and 2 tablets by mouth every evening What changed: - how much to take - when to take this - additional instructions Quantity: 90 tablet Refills: 5 mycophenolate 250 mg Cap Commonly known as: CELLCEPT Take 1 capsule by mouth 2 times daily. Kidney Transplant Z94.0. Transplant Date; 11-26-02 What changed: how much to take 250 mg Quantity: 180 capsule Refills: 11 warfarin 5 mg Tab Commonly known as: COUMADIN Take 1 tablet (5 mg) by mouth daily. What changed: additional instructions Quantity: 60 tablet Refills: 11 Continued medications, unchanged Dose Details acetaminophen 500 mg Tab Commonly known as: TYLENOL Take 2 tablets by mouth every 8 hours. 1000 mg Quantity: 30 tablet Refills: 1 allopurinol 100 mg Tab Commonly known as: ZYLOPRIM Take 1 and 1/2 tablet daily. Quantity: 45 tablet Refills: 11 CARTIA XT 120 mg Cp24 take 1 capsule by mouth once daily Generic drug: dilTIAZem Quantity: 90 capsule Refills: 0 hydrALAZINE 50 mg Tab Commonly known as: APRESOLINE Take 1 tablet by mouth 2 times daily. 50 mg Quantity: 180 tablet Refills: 3 levothyroxine 88 mcg Tab Commonly known as: SYNTHROID Take 88 mcg by mouth daily. 88 mcg Refills: 0 meTOPROLOL tartrate 50 mg Tab Commonly known as: LOPRESSOR Take 50 mg by mouth 3 times daily. 50 mg Refills: 0 multivitamin Cap Take 1 capsule by mouth daily. 1 capsule Refills: 0 tacrolimus 1 mg Cap Commonly [...] leaving the hospital Why you were hospitalized: Esophageal bleeding, dehydration Call your doctor or seek medical attention if you develop the following: Further bleeding either from your stool or vomiting blood Activity level: As usual Diet: No restrictions Driving: No restrictions Shower/Bath: No restrictions Specific instructions related to your condition: Please ensure you keep taking your medications as prescribed. Follow-Up Appointments - You should follow up with an INR check as instructed - Please call Transplant Medicine clinic to follow up with Dr. Hawkins -- call [phone] to confirm. You will have an appointment at 10:00am on WednesdayMay 28. - You will be contacted by your PCP's office for follow up Your Inpatient Doctor(s) at [facility]: Abner Dolan MD General Instructions Warfarin (Coumadin??) Instructions for Home: ??? 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 Your NEW warfarin (Coumadin??) dosing instruction upon discharge is: (Follow this schedule below until your first INR check after discharge (usually in 2- 4 days): ??? 05/16/17: 5 mg (Dose to be taken at home this evening) ??? 05/17/17: 5 mg ??? 05/18/17: 5 mg ??? 05/19/17: INR check ??? Your next INR check is scheduled for: Wednesday05/19/[address] [facility] Fuentes to provide further dosing recommendations based on INR result. ??? It is very important that you have your INR checked regularly as your dose may change based on your lab values. ??? INR goal range: 2.0-3.0 ??? Expected duration of treatment: Indefinite ??? Provider responsible for ongoing outpatient warfarin management: ??? Dr. Carroll Fuentes ??? [place], [place] ? INR taken at [facility] ??? If you have not received a call from your provider within 24 hours of having your INR drawn, please call your outpatient provider for further dose instructions. ??? Warfarin (Coumadin??) should be taken at the same time every day, preferably after 5:00 pm. It is very important that you take your warfarin as instructed. ??? If taking enoxaparin (Lovenox??) injections, continue taking until instructed to stop. (You will be taking this medication until your INR within your goal range for 24 hours.) ??? You received information on warfarin (Coumadin??) while you were in the hospital. It is important for you to remember the following (please see your warfarin (Coumadin??) packet for more information): ?? Your INR can be affected by your diet and other medications you take ?? It is important to maintain a diet with a consistent amount of wthaasp-i-xwsbfxdffp foods and avoid major changes in your diet ?? Do not start or stop taking any prescription medications, tdei-slb-cubqwoj medications, dietary supplements or herbal medications without asking your doctor or pharmacist ?? Tell your doctors, pharmacists and other healthcare providers that you take warfarin (Coumadin??) ?? Warfarin (Coumadin??) increases your risk of bleeding ??? If you experience any of these signs or symptoms of bleeding or blood clotting, please seek immediate medical attention: ?? increased pain, swelling or sudden shortness of breath ?? severe headache ?? dizziness ?? unusual bleeding or bruising ?? changes in urine or bowel movement color ?? coughing or spitting up of blood, or ?? nosebleeds that do not stop or occur more often The following table shows your most recent INR results and warfarin (Coumadin??) doses. Please bring this to your first INR check appointment after discharge. Inpatient Warfarin Dose History: Date INR Dose Comments 07/12/16 5.9 Hold Received 10 mg IV vitamin K 05/12/17 2.6 Hold 05/13/17 1.5 Hold 05/14/17 1.3 Hold 05/15/17 1.2 Hold 05/16/17 1.1 Restarting warfarin on discharge END Warfarin (Coumadin??) Instructions for Home Future Appointments and Orders Future Appointments Provider Department Dept Phone 05/19/2017 10:20 AM LAB, [facility] L Lab 3L [facility] [phone] 05/19/2017 11:20 AM Anup Hawkins MD Transplant at [facility] [phone] Future Orders Complete By Expires Referral to Urology [[id number] Custom] As directed Process Instructions: If no progress note charted, please enter Clinical details in comments. Scheduling Instructions: Comments: I am referring to Urology my 56 y.o. male patient Christy Ginna Ambrose for evaluation of an unspecified urologic issue. The most current assessment of this problem can be found in the eDH note dated 05/16/2017. My clinical question is: Patient has new findings of likely malignancy in left flandreau kidney -- would like to have these findings evaluated urgently for therapy. Pending specialist evaluation, I anticipate: [facility] One [X] Referral as Co-Management Do not type below here: [id number] Questions: My question or request is: See comment Discharge References/Attachments ELEVATED INR (BURMESE) VITAMIN K DIET (BURMESE) WARFARIN SAFETY TIPS (BURMESE) documented in this encounter Discharge Instructions * Discharge Instructions* Nell Page, [facility] - 05/16/2017 12:18 PM EST Warfarin (Coumadin??) Instructions for Home: ??? 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 Your NEW warfarin (Coumadin??) dosing instruction upon discharge is: (Follow this schedule below until your first INR check after discharge (usually in 2- 4 days): ??? 05/16/17: 5 mg (Dose to be taken at home this evening) ??? 05/17/17: 5 mg ??? 05/18/17: 5 mg ??? 05/19/17: INR check ??? Your next INR check is scheduled for: Wednesday05/19/[address] [facility] Fuentes to provide further dosing recommendations based on INR result. ??? It is very important that you have your INR checked regularly as your dose may change based on your lab values. ??? INR goal range: 2.0-3.0 ??? Expected duration of treatment: Indefinite ??? Provider responsible for ongoing outpatient warfarin management: ??? Dr. Carroll Fuentes ??? [place], [place] ? INR taken at [facility] ??? If you have not received a call from your provider within 24 hours of having your INR drawn, please call your outpatient provider for further dose instructions. ??? Warfarin (Coumadin??) should be taken at the same time every day, preferably after 5:00 pm. It is very important that you take your warfarin as instructed. ??? If taking enoxaparin (Lovenox??) injections, continue taking until instructed to stop. (You will be taking this medication until your INR within your goal range for 24 hours.) ??? You received information on warfarin (Coumadin??) while you were in the hospital. It is important for you to remember the following (please see your warfarin (Coumadin??) packet for more information): ?? Your INR can be affected by your diet and other medications you take ?? It is important to maintain a diet with a consistent amount of jkwizgj-j-lnvoejjdgc foods and avoid major changes in your diet ?? Do not start or stop taking any prescription medications, aqba-hrc-bdefvto medications, dietary supplements or herbal medications without asking your doctor or pharmacist ?? Tell your doctors, pharmacists and other healthcare providers that you take warfarin (Coumadin??) ?? Warfarin (Coumadin??) increases your risk of bleeding ??? If you experience any of these signs or symptoms of bleeding or blood clotting, please seek immediate medical attention: ?? increased pain, swelling or sudden shortness of breath ?? severe headache ?? dizziness ?? unusual bleeding or bruising ?? changes in urine or bowel movement color ?? coughing or spitting up of blood, or ?? nosebleeds that do not stop or occur more often The following table shows your most recent INR results and warfarin (Coumadin??) doses. Please bring this to your first INR check appointment after discharge. Inpatient Warfarin Dose History: Date INR Dose Comments 07/12/16 5.9 Hold Received 10 mg IV vitamin K 05/12/17 2.6 Hold 05/13/17 1.5 Hold 05/14/17 1.3 Hold 05/15/17 1.2 Hold 05/16/17 1.1 Restarting warfarin on discharge END Warfarin (Coumadin??) Instructions for Home * Patient Instructions* Abner Adames MD - 05/16/2017 12:04 PM EST Instruction after leaving the hospital Why you were hospitalized: Esophageal bleeding, dehydration Call your doctor or seek medical attention if you develop the following: Further bleeding either from your stool or vomiting blood Activity level: As usual Diet: No restrictions Driving: No restrictions Shower/Bath: No restrictions Specific instructions related to your condition: Please ensure you keep taking your medications as prescribed. Follow-Up Appointments - You should follow up with an INR check as instructed - Please call Transplant Medicine clinic to follow up with Dr. Hawkins -- call [phone] to confirm. You will have an appointment at 10:00am on WednesdayMay 28. - You will be contacted by your PCP's office for follow up Your Inpatient Doctor(s) at [facility]: Abner Dolan MD * Attachments The following attachments cannot be sent through Care Everywhere. * ELEVATED INR (BURMESE) * VITAMIN K DIET (BURMESE) * WARFARIN SAFETY TIPS (BURMESE) documented in this encounter Medications at Time of Discharge Medication Sig Dispensed Refills Start Date End Date mycophenolate (CELLCEPT) 250 mg CapsuleIndications:S/ P kidney transplant Take 1 capsule by mouth 2 times daily. Kidney Transplant Z94.0. Transplant Date; 11-26-02 180 capsule 11 05/16/2017 2018 warfarin (COUMADIN) 5 mg Tablet Take 1 tablet (5 mg) by mouth daily. 60 tablet 11 05/16/2017 06/02/2017 pantoprazole (PROTONIX) 20 mg Tablet, Delayed Release (E.C.) Take 1 tablet by mouth 2 times daily. 60 tablet 3 05/16/2017 05/19/2017 sodium bicarbonate 650 mg Tablet Take 1 tablet by mouth 2 times daily. 60 tablet 05/16/2017 06/28/2017 hydrALAZINE (APRESOLINE) 50 mg Tablet Take 1 tablet by mouth 2 times daily. 180 tablet 3 03/09/2017 12/29/2017 CARTIA XT 120 mg Capsule, Sust. Release 24 hrIndications:H/O kidney transplant take 1 capsule by mouth once daily 90 capsule 01/29/2017 05/31/2017 allopurinol (ZYLOPRIM) 100 mg TabletIndications:Hig h level of uric acid in blood Take 1 and 1/2 tablet daily. 45 tablet 11 01/07/2017 07/23/2017 tacrolimus (PROGRAF) 1 mg Capsule Take 1 capsule twice daily. Kidney transplant 11/26/2002. ICD code Z94.0 60 capsule 11 11/04/2016 05/27/2017 levETIRAcetam (KEPPRA) 500 mg Tablet take 1 tablet by mouth every morning and 2 tablets by mouth every evening 90 tablet 5 10/13/2016 05/19/2017 multivitamin Capsule Take 1 capsule by mouth daily. 2018 acetaminophen (TYLENOL) 500 mg Tablet Take 2 tablets by mouth every 8 hours. 30 tablet 1 02/06/2016 06/02/2017 levothyroxine (SYNTHROID) 100 mcg Tablet Take 100 mcg by mouth daily. 2018 metoprolol tartrate (LOPRESSOR) 50 mg tablet Take 50 mg by mouth 3 times daily. 12/03/2010 10/20/2017 documented as of this encounter Progress Notes * Nancy Ahumada RN - 05/16/2017 1:43 PM EST Patient Name: Christy Ambrose Patient Age: 56 y.o. Birthdate: 1960 Admit date: 05/11/2017 Attending Physician: Abner Adames MD Pt discharged home. IVs d/c'd. Tele d/c'd. Discharge papers reviewed. Pt left w all belongings. NAD. * Abner Adames MD - 05/16/2017 1:04 PM EST Hospital Medicine - Attending Day of Discharge Documentation Discharge diagnosis Active Hospital Problems Diagnosis ??? TRISTIAN (acute kidney injury) ??? Weight loss Resolved Hospital Problems Diagnosis Date Resolved No resolved problems to display. Secondary Issues Active Non-Hospital Problems Diagnosis ??? CKD (chronic kidney disease) stage 4, GFR 15-29 ml/min ??? 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 FPC current use of immunosuppressive drug ??? H/O [...] ??? Epilepsy ??? End stage renal disease I have personally seen and examined the patient and they are ready for discharge. I spent >30 minutes (Day of Discharge Code 69545) involved in the final examination of the patient, discussion of the hospital stay, instructions for continuing care to all relevant caregivers, and preparation of discharge records, prescriptions and referral forms. Plans ? Discharge to home ? Follow-up scheduled with Transplant medicine, PCP follow up to be organized. ? Please see the Discharge Summary for complete details of any medication changes and additional plans. * Nancy Ahumada RN - 05/16/2017 12:20 PM EST Cardiac/Telemetry Nursing Progress Note [id number] Subjective: I'm feeling better. Objective: Vital Signs: See Vital signs below Cardiac Meds: See online MAR Labs: See labs in online chart. Assessment: Plan: Continue telemetry monitoring. Notify MD of any changes. See Attached Tele Strip. (in green paper chart). Last value Range last 12 hrs Temperature Temp: 37 ??C (98.6 ??F) Temp: [37 ??C (98.6 ??F)] Heart Rate Heart Rate: 57 Heart Rate: [57-62] Blood Pressure BP: 126/81 BP: (120-126)/(81-84) Respiratory Rate Resp: 16 Resp: [16] SpO2 SpO2: 98 % SpO2: [95 %-98 %] * Rosita Aranda RN - 05/16/2017 5:46 AM EST Cardiac/Telemetry Nursing Progress Note Objective: Vital Signs: See Vital signs below Cardiac Meds: See online MAR Labs: See labs in online chart. Assessment: SB/SR HR 45-95, high HR with activity- up to 150's, int. Sinus arrhythmia OK 0.15 QRS 0.13 RR 1.23 QT 0.45 QTc 0.40 Plan: Continue telemetry monitoring. Notify MD of any changes. See Attached Tele Strip. (in green paper chart). Last value Range last 12 hrs Temperature Temp: 37 ??C (98.6 ??F) Temp: [36.8 ??C (98.2 ??F)-37 ??C (98.6 ??F)] Heart Rate Heart Rate: 62 Heart Rate: [53-62] Blood Pressure BP: 120/84 BP: (120-139)/(84-110) Respiratory Rate Resp: 16 Resp: [16] SpO2 SpO2: 95 % SpO2: [95 %-100 %] * Selma Torres RN - 05/15/2017 6:43 PM EDT Cardiac/Telemetry Nursing Progress Note Subjective: I've felt things like that in the past, but not here, not now. Objective: Vital Signs: See Vital signs below Cardiac Meds: See online MAR Labs: See labs in online chart. Assessment: Patient has had a few episodes of tachycardia when standing up and ambulating. No complaints of chest pain, shortness of breath, dizziness, or palpitations. Telemetry report showing sinus rhythm/sinus yamilka/sinus tachycardia with HR's 46-102. No ectopy this shift. Patient noted to have elevated blood pressures and end of shift. Text page sent to [phone] pager. New orders for PO Hydralazine placed. Plan: Continue telemetry monitoring. Notify MD of any changes. See Attached Tele Strip. (in green paper chart). Last value Range last 12 hrs Temperature Temp: 36.4 ??C (97.5 ??F) Temp: [36.4 ??C (97.5 ??F)-36.8 ??C (98.2 ??F)] Heart Rate Heart Rate: 50 Heart Rate: [50-53] Blood Pressure BP: (!) 138/110 BP: (118-146)/(67-110) Respiratory Rate Resp: 16 Resp: [16] SpO2 SpO2: 100 % SpO2: [95 %-100 %] * Abner Adames MD - 05/15/2017 4:16 PM EDT Hospital Medicine Attending Daily Progress Note Admit Date: 05/11/2017 Hospital Day 4 days Active Hospital Problems Diagnosis ??? TRISTIAN (acute kidney injury) ??? Weight loss Resolved Hospital Problems Diagnosis Date Resolved No resolved problems to display. PMH Active Non-Hospital Problems Diagnosis ??? CKD (chronic kidney disease) stage 4, GFR 15-29 ml/min ??? 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 H/O [...] ??? Epilepsy ??? End stage renal disease Inpatient Medications: Scheduled ??? heparin (Porcine) 5,000 Units Subcutaneous BID ??? camphor-menthol Topical (Top) TID ??? pantoprazole 40 mg Intravenous BID ??? sodium bicarbonate 1,300 mg Oral TID ??? epoetin kerry 40,000 Units Subcutaneous Once per day on Wed ??? mycophenolate 250 mg Oral BID ??? warfarin (COUMADIN) daily order reminder Oral Q24H ??? allopurinol 100 mg Oral Daily ??? levETIRAcetam 500 mg Oral BID ??? levothyroxine 88 mcg Oral Daily ??? tacrolimus 1 mg Oral BID ??? sodium chloride 0.9 % 5 mL Intravenous BID Continuous infusions: PRN: acetaminophen, sodium chloride 0.9 %, lidocaine, ondansetron Interval History: - Feels better today - Worried about masses seen on CT scan Physical Exam Vitals Range last 24 hrs Temperature Temp: [36.7 ??C (98.1 ??F)-37.2 ??C (99 ??F)] Heart Rate Heart Rate: [51-62] Blood Pressure BP: (118-136)/(67-96) Respiratory Rate Resp: [16-18] SpO2 SpO2: [95 %-98 %] Intake/Output Summary (Last 24 hours) at 05/15/17 1616 Last data filed at 05/15/17 1500 Gross per 24 hour Intake 2947 ml Output 3075 ml Net -128 ml Patient Vitals for the past 168 hrs: Weight 05/11/17 1850 71.3 kg (157 lb 3.2 oz) Body mass index is 22.56 kg/(m^2). Physical Exam Gen: Thin appearing, otherwise in NAD HEENT: MMM Neck: No JVD CV: Bradycardic, no mrg Lungs: Clear Abd: Soft, nt nd decreased BS. ??No CVA ttp Extr: 1+ LE edema b/l Skin: No rash Studies reviewed in eDH. Remarkable for the following: LABS: Last 3 wbc, hgb, hct plt Recent Labs 05/15/17 0844 05/14/17 1826 05/14/17 0608 WBC 3.0* 2.9* 3.3* HGB 8.8* 8.0* 8.2* HCT 24.9* 23.6* 23.2* PLATELET 167 172 158 Last 3 Lytes Recent Labs 05/15/17 0844 05/14/17 1826 05/14/17 0608 NA 140 139 143 K 3.6 3.3* 2.9* CL 108* 109* 110* CO2 18* 17* 17* BUN 37* 44* 54* CREATININE 2.52* 2.70* 3.14* Last 3 LFTs Recent Labs 05/12/17 0618 11/26/16 1033 AST 11 21 ALT 10 13 ALKPHOS 101 98 BILITOT 0.3 0.3 BILIDIR 0.1 0.1 FSBG Trend No results for input(s): POCGLU in the last 72 hours. MICRO: No results for input(s): URINECULTURE in the last 720 hours. No results for input(s): GRAMSTAIN, BFCX, LOWERRESPCX, TISSUECX in the last 720 hours. No results for input(s): BLOODCX in the last 720 hours. ECG: Recent Labs 05/11/178 DIAGLINE Marked sinus bradycardia Abnormal ECG When compared with ECG of 26-NOV-2002 10:23, T wave amplitude has decreased in Lateral leads Confirmed by Carter Pan MD ([id number]) on 05/12/2017 3:10:32 PM QTCCALC 400 VASCULAR: No results for input(s): VBTEXTRPT in the last 720 hours. IMAGIN05/11/17 -- CXR Asymmetric opacity superimposing onto the costochondral junction of the first rib on the right, presumably due to degenerative disease. However, given history of weight loss and immunosuppression andpresumably concern for malignancy a CT is recommended. Chest radiograph is not an accepted modalityto exclude pulmonary malignancy.UNEXPECTED FINDING. 05/12/17 -- Transplant Renal U/S 1. ??Transplant kidney with dampened peak systolic velocities in??the midpolearcuate arteries [id number]. Allowing for differences in??scale, remainingvelocities and waveforms are stable. Normal??resistive indices. 2. ??The renal parenchyma is normal. No??perinephric fluid collection. 3. ??No collecting system dilation. 05/14/17 -- CT C/A/P 1. There are three left renal lesions, [...] intravenous contrast. 4. Trace bilateral pleural fluid. 05/14/17 -- US Retroperitoneal Echogenic atrophic flandreau kidneys. Peripheral to a 2.5 cm left renal cyst are dual heterogeneous solid renal massesone of which shows trace peripheral flow in one of its shows small central flow.These are concerning for malignancy. Assessment: 56 y.o. 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 ??This is occurring in the setting of significant recent weight loss and is notably slightly hypotensive on arrival. His renal function has improved back tohis baseline. His CT and ultrasound findings are consistent with malignancy. I have discussed his case with urology, and they recommend seeing the patient as an outpatient to drive further management. UGIB has resolved, and I will continue to hold warfarin for now. Likely etiology was erosive esophagitis in context of anticoagulation. Plan: # TRISTIAN on CKD in pt s/p DDRT 2002 w/ hx IgA nephropathy/prograf toxicity - resolving # mixed AGMA/NAGMA - resolving # Hypernatremia - resolved - D/C IV fluids - Encourage PO intake - Renal transplant consulting - Dr. Hawkins - Renal U/S without evidence of obstruction or change in resistive indices. ?? - Mycophenolate 250mg PO BID - Bicarbonate 1300mg BID - Avoid NSAIDS, nephrotoxins - Renally dose medications. ? # UGIB - resolving - EGD showing severe esophagitis - likely explanation for bleeding in setting of supratherapuetic INR. Now s/p 2u pRBC, 2U FFP, 10 mg IV Vit K on 05/12. - CMV PCR (serum) negative - F/u EGD biopsy; CMV culture - Hgb stable in 8s - PPI IV BID - Maintain active T&S - Maintain 2 large bore IV access ? # L flandreau Renal masses - Discussed with urology, will need referral - Will likely need to be discussed in tumor board ? # HTN - Hold??metoprolol 50 TID, hydralazine 50 mg BID # Bradycardia - F/U lyme disease ? #Hypothyroidism -Cont home levothyroxine ? # Gout -Reduce allopurinol to 100 mg daily for renal dosing ? # TBI/Seizure d/o: - Cont home keppra ? # DVT - Holding coumadin as above in setting of UGIB, may need to resume in outpatient setting - Pharmacy warfarin consult. ? # DVT: SCDs # Diet: will advance to renal/high fiber diet. # Code Full ? # Dispo pending evaluation of weight loss, TRISTIAN, and UGIB Team Pager( Coverage 01/02): #[phone] PCP: Carroll Fuentes DO [phone] Attestation: IPI Certification I certify that I am a D-H credentialed attending provider with admitting privileges and that the patient meets or has met medical necessity to require an inpatient IPI level of care meeting a minimumof two midnights or is on the [facility] inpatient only procedure list (status C) due to: further evaluation of weight loss, UGIB ABNER ADAMES MD 05/15/2017 * Maria E Galvan RN - 05/15/2017 2:36 AM EDT OUTCOME EVALUATION NOTE: OUTCOME SUMMARY: Patient rested well throughout night. VSS, Denies CP/N/V/SOB. Tele sinus yamilka, at time with ambulation would be 120's, coming back down to the 50's quickly. Patient voiding in urinal, ambulated onceto bathroom. K+given per order. PLAN MOVING FORWARD: Continue to monitor labs/fluid status. INDIVIDUALIZED FALL PREVENTION INTERVENTIONS: Patient-specific fall risk factors per assessment: [current deficits]: IV pole Assistance [level of assistance required for transfers and ambulation]: Stand by Supervision [direct monitoring required during toileting and ADLs]: None Surveillance [continuous indirect monitoring]: Ibeth Alfaro, Hourly Rounding Patient-specific fall prevention interventions for sensory deficits provided, if applicable: [X] N/A CPG GOAL OUTCOME EVALUATION: * Maria E Galvan RN - 05/15/2017 2:34 AM EDT Cardiac/Telemetry Nursing Progress Note [id number] ?? Subjective: Patient stated feeling well, improving everyday Objective: ?? Vital Signs: See Vital signs below ?? Cardiac Meds: See online MAR ?? Labs: See labs in online chart. ?? Assessment: Denies SOB, CP/N/V. Patient A&O with no complaints. HR 54-120. Plan: Continue telemetry monitoring. Notify MD of any changes. * Selma Torres RN - 05/14/2017 7:45 PM EDT Cardiac/Telemetry Nursing Progress Note [id number] Subjective: No, I don't have any pain. Objective: Vital Signs: See Vital signs below Cardiac Meds: See online MAR Labs: See labs in online chart. Assessment: Patient has no complaints of chest pain, or shortness of breath. Per telemetry report showing sinusrhythm/sinus arrhythmia with HR's 43-115 and rare PAC's. Plan: Continue telemetry monitoring. Notify MD of any changes. See Attached Tele Strip. (in green paper chart). Last value Range last 12 hrs Temperature Temp: 37.2 ??C (99 ??F) Temp: [36.4 ??C (97.5 ??F)-37.2 ??C (99 ??F)] Heart Rate Heart Rate: 55 Heart Rate: [48-55] Blood Pressure BP: (!) 127/96 BP: (126-136)/(91-96) Respiratory Rate Resp: 18 Resp: [16-18] SpO2 SpO2: 96 % SpO2: [96 %-98 %] * Jesenia Dolan MD - 05/14/2017 7:23 PM EDT Hospital Medicine Attending Daily Progress Note Admit Date: 05/11/2017 Hospital Day 3 days Active Hospital Problems Diagnosis ??? TRISTIAN (acute kidney injury) ??? Weight loss Resolved Hospital Problems Diagnosis Date Resolved No resolved problems to display. PM Active Non-Hospital Problems Diagnosis ??? CKD (chronic kidney disease) stage 4, GFR 15-29 ml/min ??? 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 H/O [...] ??? Epilepsy ??? End stage renal disease Inpatient Medications: Scheduled ??? pantoprazole 40 mg Intravenous BID ??? sodium bicarbonate 1,300 mg Oral TID ??? epoetin kerry 40,000 Units Subcutaneous Once per day on Wed ??? mycophenolate 250 mg Oral BID ??? warfarin (COUMADIN) daily order reminder Oral Q24H ??? allopurinol 100 mg Oral Daily ??? levETIRAcetam 500 mg Oral BID ??? levothyroxine 88 mcg Oral Daily ??? tacrolimus 1 mg Oral BID ??? sodium chloride 0.9 % 5 mL Intravenous BID Continuous infusions: ??? dextrose 5% and sodium chloride 0.45% 125 mL/hr (05/14/17 1904) PRN: acetaminophen, sodium chloride 0.9 %, lidocaine, ondansetron Interval History: -Feeling well today, tolerating full liquid diet without any difficulty -Had BM; loose but not liquid this afternoon (first BM in several days) -No lightheadedness or SOB -UOP ~2.5L/24h. Physical Exam Vitals Range last 24 hrs Temperature Temp: [36.4 ??C (97.5 ??F)-37 ??C (98.6 ??F)] Heart Rate Heart Rate: [45-95] Blood Pressure BP: (121-136)/(72-93) Respiratory Rate Resp: [16-22] SpO2 SpO2: [93 %-98 %] Intake/Output Summary (Last 24 hours) at 05/14/17 192 Last data filed at 05/14/17 190 Gross per 24 hour Intake 4705 ml Output 2760 ml Net 1945 ml Patient Vitals for the past 168 hrs: Weight 05/11/17 1850 71.3 kg (157 lb 3.2 oz) Body mass index is 22.56 kg/(m^2). Physical Exam Gen: Thin appearing, otherwise in NAD HEENT: Oral mucosa slightly dry appearing Neck: No JVD CV: Bradycardic, no mrg Lungs: Clear Abd: Soft, nt nd decreased BS. ??No CVA ttp Extr: 1+ LE edema b/l Skin: No rash Studies reviewed in eDH. Remarkable for the following: LABS: Last 3 wbc, hgb, hct plt Recent Labs 05/14/17 1826 05/14/17 0608 05/13/17 2026 WBC 2.9* 3.3* 3.6* HGB 8.0* 8.2* 8.9* HCT 23.6* 23.2* 25.7* PLATELET 172 158 168 Last 3 Lytes Recent Labs 05/14/17 0608 05/13/17 1344 05/13/17 0600 NA 143 145 147* K 2.9* 3.5 3.5 CL 110* 115* 116* CO2 17* 15* 15* BUN 54* 64* 67* CREATININE 3.14* 3.56* 3.87* Last 3 LFTs Recent Labs 05/12/17 0618 11/26/16 1033 AST 11 21 ALT 10 13 ALKPHOS 101 98 BILITOT 0.3 0.3 BILIDIR 0.1 0.1 FSBG Trend No results for input(s): POCGLU in the last 72 hours. MICRO: No results for input(s): URINECULTURE in the last 720 hours. No results for input(s): GRAMSTAIN, BFCX, LOWERRESPCX, TISSUECX in the last 720 hours. No results for input(s): BLOODCX in the last 720 hours. ECG: Recent Labs 05/11/17 2118 DIAGLINE Marked sinus bradycardia Abnormal ECG When compared with ECG of 26-NOV-2002 10:23, T wave amplitude has decreased in Lateral leads Confirmed by Carter Pan MD ([id number]) on 05/12/2017 3:10:32 PM QTCCALC 400 VASCULAR: No results for input(s): VBTEXTRPT in the last 720 hours. IMAGING: ?? IMPRESSION Asymmetric opacity superimposing onto the costochondral junction of the first rib on the right, presumably due to degenerative disease. However, given history of weight loss and immunosuppression and presumably concern for malignancy a CT is recommended. Chest radiograph is not an accepted modality to exclude pulmonary malignancy.UNEXPECTED FINDING. ? Renal U/S: ?1. ??Transplant kidney with dampened peak systolic velocities in ??the midpolearcuate arteries since 2010. Allowing for differences in ??scale, remainingvelocities and waveforms are stable. Normal ??resistive indices. 2. ??The renal parenchyma is normal. No ??perinephric fluid collection.3. ??No collecting system dilation.I have ??personally reviewed the image(s) and the residents interpretation ??andagree with the findings, A/P: Mr. Ambrose is a 56 y.o. 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 ??This is occurring in the setting of significant recent weight loss and is notably slightly hypotensive on arrival. ? Course c/b new suspected UGIB with hematemesis am of 05/12. Required transfusion, IV Vit K, FFP for INR reversal. No further bleeding in past 48h; EGD has shown severe esophagitis. UOP improving with downtrending Cr. Also found to have new L flandreau renal masses concerning for underlying malignancy. #TRISTIAN on CKD in pt s/p DDRT 2002 w/ hx IgA nephropathy/prograf toxicity - resolving #mixed AGMA/NAGMA - resolving #Hypernatremia - resolved Currently suspect acute process given phosphorous within normal limits. ??FeNa low suggestive of prerenal etiology. Likely related to history of diarrhea/vomiting, GIB. UOP significantly improved in past 24h to 2.7L; will need to monitor for possibility of post ATN diuresis; Cr improved to 3.87 from 4.9 on admission. -Cont IVF 1/2 NS 125-FeNa low, Pat < 20; UA largely bland, 30 mg/dl protein similar to prior. ? -Renal U/S without evidence of obstruction or change in resistive indices. ?? -Reduce home cellcept to 250 mg 2xD for now -Tacrolimus level from yest am <3 -NPO for EGD today -Started bicarb 1300 mg 3xD; trend HCO3 levels -> HCO3 improving 12->15 today. ?? -Avoid NSAIDS, nephrotoxins -Renally dose medications. -F/u repeat BMP this afternoon. ? #UGIB: EGD showing severe esophagitis - unclear etiology but likely explanation for bleeding in setting of supratherapuetic INR. He is now s/p 2u pRBC, 2U FFP, 10 mg IV Vit K on 05/12. -CMV PCR (serum) negative; -F/u EGD biopsy; CMV culture. -Hgb stable in 8s -INR 1.3 today -IV PPI 2xD .lastinr -Trend H/H BID for now, goal Hgb >7 -Maintain active T&S -Maintain 2 large bore IV access ? #L flandreau Renal masses #Weight loss: Gives history of ~20 lb weight loss over past few weeks without significant change inpo intake; does give history of recent recurrent watery diarrhea, occasional vomiting. ??No night sweats or other B symptoms. ?CXR showing unexpected finding of opacity, likely DJD but cannot exclude malignancy. F/u CT C/A/P showing evidence of DJD to explain above CXR abnormalitity, however also found to havenew L renal masses; largest 5.2 cm concerning for RCC vs metastatic cancer. -F/u Renal US pending - anticipate need for urology follow up for evaluation for RCC -Prealbumin wnl -No further diarrhea in hospital (and given no BM for prior few days will d/c infectious stool studies) -TSH wnl -A1c wnl -CMV serologies negative -Results of colonoscopy from 02/2017 @ [place], [place] by Dr. Michaud obtained: normal colonoscopy without polyps identified; no biopsies taken. -Will plan to introduce high fiber diet; imodium prn. #HypoK, HypoMg -Supplementing. ? #Bradycardia - Reports baseline near 50. ??Appears asymptomatic. ??HR currently ranging in upper 40s-50s. ?? -EKG showing sinus bradycardia -Holding metoprolol as above -TSH wnl -Will check Lyme Ab - pending ? #HTN -Hold??metoprolol 50 3xD, hydralazine 50 mg 2xD in setting of recent hypotension ? #HypoTSH -Cont home levothyroxine ? #Gout -Reduce allopurinol to 100 mg daily for renal dosing ? #TBI/Seizure d/o: -Cont home keppra ? #DVT -Holding coumadin as above in setting of UGIB -Pharmacy warfarin consult. ? #DVT: SCDs #Diet: will advance to renal/high fiber diet. #Code Full ? #Dispo pending evaluation of weight loss, TRISTIAN, and UGIB Team Pager( Coverage 01/02): #[phone] PCP: Carroll Fuentes DO [phone] Attestation: IPI Certification I certify that I am a D-H credentialed attending provider with admitting privileges and that the patient meets or has met medical necessity to require an inpatient IPI level of care meeting a minimumof two midnights or is on the [facility] inpatient only procedure list (status C) due to: further evaluation of weight loss, UGIB, Jesenia Dolan MD 05/14/2017 * Yasmeen Woodall RN - 05/14/2017 6:42 AM EDT Cardiac/Telemetry Nursing Shift Note Subjective: I am feeling much better Objective: Tachycardia noted upon standing/exertion Bradycardia noted while sleeping/resting Vital Signs: See Vital signs below Cardiac Meds: See online MAR Labs: See labs in online chart. Assessment: HR 40-130, rare PACs, HR up to 130 with activity, OK 0.16, QRS 0.09, RR 1.44, QT 0.38, QTc 0.31 Plan: Continue telemetry monitoring. Notify MD of any changes. See Attached Tele Strip. (in green paper chart). Last value Range last 12 hrs Temperature Temp: 36.9 ??C (98.4 ??F) Temp: [36.9 ??C (98.4 ??F)-37 ??C (98.6 ??F)] Heart Rate Heart Rate: 51 Heart Rate: [45-95] Blood Pressure BP: 121/83 BP: (121-127)/(72-83) Respiratory Rate Resp: 20 Resp: [16-22] SpO2 SpO2: 96 % SpO2: [93 %-98 %] * Selma Torres RN - 05/13/2017 7:49 PM EDT Cardiac/Telemetry Nursing Progress Note [id number] Subjective: No, I don't have any pain. Objective: Vital Signs: See Vital signs below Cardiac Meds: See online MAR Labs: See labs in online chart. Assessment: Patient was NPO today for EGD this afternoon. No complaints of chest pain, shortness of breath or dizziness. Patient had 3 episodes of tachycardia this shift which occurred when he was standing at the bedside to use the urinal. MD notified. Patient also had episodes of his HR dipping to 39. Dr. Dolan notified. Telemetry report showing sinus yamilka with intermittent tachycardia HR's 39-125, rare PVC's, rare PAC's and rare PJC's. Plan: Continue telemetry monitoring. Notify MD of any changes. See Attached Tele Strip. (in green paper chart). Last value Range last 12 hrs Temperature Temp: 37.1 ??C (98.8 ??F) Temp: [37.1 ??C (98.8 ??F)] Heart Rate Heart Rate: (!) 40 Heart Rate: [40-51] Blood Pressure BP: 147/83 BP: (113-147)/(59-85) Respiratory Rate Resp: 16 Resp: [16-18] SpO2 SpO2: 99 % SpO2: [95 %-99 %] * Jesenia Dolan MD - 05/13/2017 11:50 AM EDT Hospital Medicine Attending Daily Progress Note Admit Date: 05/11/2017 Hospital Day 2 days Active Hospital Problems Diagnosis ??? TRISTIAN (acute kidney injury) ??? Weight loss Resolved Hospital Problems Diagnosis Date Resolved No resolved problems to display. PMH Active Non-Hospital Problems Diagnosis ??? CKD (chronic kidney disease) stage 4, GFR 15-29 ml/min ??? 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 H/O [...] ??? Epilepsy ??? End stage renal disease Inpatient Medications: Scheduled ??? pantoprazole 40 mg Intravenous BID ??? sodium bicarbonate 1,300 mg Oral TID ??? epoetin kerry 40,000 Units Subcutaneous Once per day on Wed ??? mycophenolate 250 mg Oral BID ??? warfarin (COUMADIN) daily order reminder Oral Q24H ??? allopurinol 100 mg Oral Daily ??? levETIRAcetam 500 mg Oral BID ??? levothyroxine 88 mcg Oral Daily ??? tacrolimus 1 mg Oral BID ??? sodium chloride 0.9 % 5 mL Intravenous BID Continuous infusions: ??? dextrose 5% and sodium chloride 0.45% 125 mL/hr (05/13/17 0809) PRN: acetaminophen, sodium chloride 0.9 %, lidocaine, ondansetron Interval History: -Received 2u pRBC, 2u FFp yesterday -UOP yesterday 2.6L; net +2L -Feeling well this morning, denies pain or nausea. -No bowel movement since admission. Physical Exam Vitals Range last 24 hrs Temperature Temp: [36.5 ??C (97.7 ??F)-37 ??C (98.6 ??F)] Heart Rate Heart Rate: [42-56] Blood Pressure BP: (114-150)/(76-89) Respiratory Rate Resp: [16-18] SpO2 SpO2: [95 %-98 %] Intake/Output Summary (Last 24 hours) at 05/13/17 1150 Last data filed at 05/13/17 1058 Gross per 24 hour Intake 4070.16 ml Output 2500 ml Net 1570.16 ml Patient Vitals for the past 168 hrs: Weight 05/11/17 1850 71.3 kg (157 lb 3.2 oz) Body mass index is 22.56 kg/(m^2). Physical Exam \\ Gen: Cachetic appearing, otherwise in NAD HEENT: Oral mucosa slightly dry appearing Neck: No JVD CV: Bradycardic, no mrg Lungs: Clear Abd: Soft, nt nd decreased BS. No CVA ttp Extr: 1+ LE edema b/l Skin: No rash Studies reviewed in eDH. Remarkable for the following: LABS: Last 3 wbc, hgb, hct plt Recent Labs 05/13/17 0600 05/12/17 2349 05/12/17 1156 WBC 2.9* 3.0* 3.0* HGB 8.2* 8.1* 6.9* HCT 23.3* 23.1* 21.6* PLATELET 179 166 193 Last 3 Lytes Recent Labs 05/13/17 0600 05/12/17 2349 05/12/17 1156 NA 147* 144 143 K 3.5 3.4* 3.1* CL 116* 113* 115* CO2 15* 14* 12* BUN 67* 71* 80* CREATININE 3.87* 4.11* 4.31* Last 3 LFTs Recent Labs 05/12/17 0618 11/26/16 1033 AST 11 21 ALT 10 13 ALKPHOS 101 98 BILITOT 0.3 0.3 BILIDIR 0.1 0.1 Last Ca, Mg, Phos Recent Labs 05/13/17 0600 05/12/17 0618 CALCIUM 7.5* < > 7.4* PHOS -- -- 4.4 < > = values in this interval not displayed. Last 3 Coags Recent Labs 05/13/17 0600 05/12/17 1402 05/12/17 0733 PT 17.9* 27.5* 53.8* INR 1.5* 2.6* 5.9* FSBG Trend No results for input(s): POCGLU in the last 72 hours. MICRO: No results for input(s): URINECULTURE in the last 720 hours. No results for input(s): GRAMSTAIN, BFCX, LOWERRESPCX, TISSUECX in the last 720 hours. No results for input(s): BLOODCX in the last 720 hours. ECG: Recent Labs 05/11/17 2118 DIAGLINE Marked sinus bradycardia Abnormal ECG When compared with ECG of 26-NOV-2002 10:23, T wave amplitude has decreased in Lateral leads Confirmed by Carter Pan MD ([id number]) on 05/12/2017 3:10:32 PM QTCCALC 400 VASCULAR: No results for input(s): VBTEXTRPT in the last 720 hours. IMAGING: IMAGING: CXR ?? IMPRESSION Asymmetric opacity superimposing onto the costochondral junction of the first rib on the right, presumably due to degenerative disease. However, given history of weight loss and immunosuppression and presumably concern for malignancy a CT is recommended. Chest radiograph is not an accepted modality to exclude pulmonary malignancy.UNEXPECTED FINDING. ?? Renal U/S: ?1. ??Transplant kidney with dampened peak systolic velocities in ??the midpolearcuate arteries since 2010. Allowing for differences in ??scale, remainingvelocities and waveforms are stable. Normal ??resistive indices. 2. ??The renal parenchyma is normal. No ??perinephric fluid collection.3. ??No collecting system dilation.I have ??personally reviewed the image(s) and the residents interpretation ??andagree with the findings, A/P: Mr. Ambrose is a 56 y.o. 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 ??This is occurring in the setting of significant recent weight loss and is notably slightly hypotensive on arrival. ? Course c/b new suspected UGIB with hematemesis am of 05/12. Required transfusion, IV Vit K, FFP for INR reversal. No further bleeding in past 24h; plan for EGD today. UOP improving with downtrending Cr. ? #TRISTIAN on CKD in pt s/p DDRT 2002 w/ hx IgA nephropathy/prograf toxicity. #AGMA #Hypernatremia Currently suspect acute process given phosphorous within normal limits. FeNa low suggestive of prerenal etiology. Likely related to history of diarrhea/vomiting, GIB. UOP significantly improved in past 24h to 2.7L; will need to monitor for possibility of post ATN diuresis; Cr improved to 3.87 from 4.9 on admission. -Cont IVF / NS 125-FeNa low, Pat < 20; UA largely bland, 30 mg/dl protein similar to prior. -Renal U/S without evidence of obstruction or change in resistive indices. -Reduce home cellcept to 250 mg 2xD for now -Tacrolimus level from yest am <3 -NPO for EGD today -Started bicarb 1300 mg 3xD; trend HCO3 levels -> HCO3 improving 12->15 today. -Avoid NSAIDS, nephrotoxins -Renally dose medications. -F/u repeat BMP this afternoon. ?? #UGIB: Unclear etiology; question uremic gastritis in setting of supratherapuetic INR vs malignancygiven history of weight loss. Hgb 8.5 -> 7.2 - > 6.9->8.1 s/p 2u pRBC, 2U FFP, 10 mg IV VitK on 05/12. -INR 1.5 today -IV PPI 2xD -Trend H/H q8hr for now, goal Hgb >7 -Maintain active T&S -Maintain 2 large bore IV access -GI consulted; plan for EGD today at 4 pm - appreciate assistance. ? #Weight loss: Gives history of ~20 lb weight loss over past few weeks without significant change inpo intake; does give history of recent recurrent watery diarrhea, occasional vomiting. No night sweats or other B symptoms. CXR showing unexpected finding of opacity, likely DJD but cannot exclude malignancy .-Prealbumin wnl suggestive of adequate oral intake. -Given immunocompromised status and diarrhea will pursue giardia, cryptosporidium, c diff, stool cultures - so far without any BM during admission; may cancel this evaluation if no BM through tomorrow. -TSH wnl -A1c wnl -F/u CT C/A/P wo contrast to evaluate for evidence of malignancy given CXR findings. Cannot use contrast due to renal history. Plan to pursue 05/14 with PO contrast unless contraindication noted on EGD. -EGD as above. -F/u CMV -Results of colonoscopy from 02/2017 @ [place], [place] by Dr. Michaud obtained: normal colonoscopy without polyps identified; no biopsies taken. -Pending negative eval of above will plan to introduce high fiber diet; imodium. ?? #Bradycardia - Reports baseline near 50. ??Appears asymptomatic. ??HR currently ranging in upper 40s-50s. ?? -EKG showing sinus bradycardia -Holding metoprolol as above -TSH wnl -Will check Lyme Ab ?? #HTN -Hold metoprolol 50 3xD, hydralazine 50 mg 2xD ?? #HypoTSH -Cont home levothyroxine ? #Gout -Reduce allopurinol to 100 mg daily for renal dosing ? #TBI/Seizure d/o: -Cont home keppra ?? #DVT -Holding coumadin as above in setting of UGIB -Pharmacy warfarin consult. ?? #DVT: Supratherapuetic INR currently #Diet: NPO for now; then renal/high fiber pending EGD results #Code Full ?? #Dispo pending evaluation of weight loss, TRISTIAN, and UGIB Team Pager( Coverage 01/02): #[phone] PCP: Carroll Fuentes DO [phone] Attestation: IPI Certification I certify that I am a D-H credentialed attending provider with admitting privileges and that the patient meets or has met medical necessity to require an inpatient IPI level of care meeting a minimumof two midnights or is on the CMS inpatient only procedure list (status C) due to: further eval UGIB, TRISTIAN Jesenia Dolan MD 05/13/2017 * Mayra Hernandez RN - 05/13/2017 5:13 AM EDT Last value Range last 12 hrs Temperature Temp: 37 ??C (98.6 ??F) Temp: [36.9 ??C (98.4 ??F)-37 ??C (98.6 ??F)] Heart Rate Heart Rate: (!) 42 Heart Rate: [42-56] Blood Pressure BP: 114/78 BP: (114-150)/(76-89) Respiratory Rate Resp: 18 Resp: [16-18] SpO2 SpO2: 96 % SpO2: [95 %-97 %] Cardiac/Telemetry Nursing Progress Note [id number] Subjective: Pt asymptomatic, denies chest pain, dizziness, nausea, and palpitations. Objective: Vital Signs: See Vital signs below Cardiac Meds: See online MAR Labs: See labs in online chart. Assessment: Pt predominately in sinus rhythm, bradycardic, HR 45-60, tachy into the 120s with activity, rare blocked beats, rare PACs. Pt had 2.8 sec pause. OK 0.18, QRS 0.12, RR 1.16, QT 0.44, QTc 0.40 Plan: Continue telemetry monitoring. Notify MD of any changes. See Attached Tele Strip. (in green paper chart). * Ilda Kate RN - 05/12/2017 6:15 PM EDT MD notified of increase in SBP since infusions of mag, KCL, FFP and RBCs Started. 3rd bag FFP canceled. * Jesenia Dolan MD - 05/12/2017 12:25 PM EDT Hospital Medicine Attending Daily Progress Note Admit Date: 05/11/2017 Hospital Day 1 day Active Hospital Problems Diagnosis ??? TRISTIAN (acute kidney injury) ??? Weight loss Resolved Hospital Problems Diagnosis Date Resolved No resolved problems to display. PMH Active Non-Hospital Problems Diagnosis ??? CKD (chronic kidney disease) stage 4, GFR 15-29 ml/min ??? 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 FPC current use of immunosuppressive drug ??? H/O [...] ??? Epilepsy ??? End stage renal disease Inpatient Medications: Scheduled ??? pantoprazole 40 mg Intravenous BID ??? sodium bicarbonate 1,300 mg Oral TID ??? [START ON 05/13/2017] epoetin kerry 40,000 Units Subcutaneous Once per day on Wed ??? mycophenolate 250 mg Oral BID ??? allopurinol 100 mg Oral Daily ??? levETIRAcetam 500 mg Oral BID ??? levothyroxine 88 mcg Oral Daily ??? tacrolimus 1 mg Oral BID ??? sodium chloride 0.9 % 5 mL Intravenous BID ??? warfarin (COUMADIN) daily order reminder Oral Q24H Continuous infusions: ??? dextrose 5% and sodium chloride 0.45% 150 mL/hr (05/12/17 1137) PRN: acetaminophen, sodium chloride 0.9 %, lidocaine, ondansetron Interval History: -Overnight large emesis with bright red blood -Denies lightheadedness, abdominal pain, nausea this morning -INR 5.9 this am. -Hgb 8.5 -> 7.2 overnight. -UOP 450cc overnight Physical Exam Vitals Range last 24 hrs Temperature Temp: [36.4 ??C (97.5 ??F)-37 ??C (98.6 ??F)] Heart Rate Heart Rate: [45-58] Blood Pressure BP: (89-139)/(60-92) Respiratory Rate Resp: [16-18] SpO2 SpO2: [97 %-100 %] Intake/Output Summary (Last 24 hours) at 05/12/17 1226 Last data filed at 05/12/17 1146 Gross per 24 hour Intake 1841 ml Output 2100 ml Net -259 ml Patient Vitals for the past 168 hrs: Weight 05/11/17 1850 71.3 kg (157 lb 3.2 oz) Body mass index is 22.56 kg/(m^2). Physical Exam Gen: Cachetic appearing, otherwise in NAD HEENT: Oral mucosa slightly dry appearing Neck: No JVD CV: Bradycardic, no mrg Lungs: Clear Abd: Soft, nt nd decreased BS. No CVA ttp Extr: 1+ LE edema b/l Skin: No rash Studies reviewed in eDH. Remarkable for the following: LABS: Last 3 wbc, hgb, hct plt Recent Labs 05/12/17 0605/11/17 2030 11/26/16 1033 WBC 2.7* 3.9* 4.0 HGB 7.2* 8.5* 9.1* HCT 21.3* 26.0* 28.6* PLATELET 188 214 185 Last 3 Lytes Recent Labs 05/12/17 0618 05/11/17 2030 11/26/16 1033 NA 148* 144 141 K 3.3* 3.3* 5.6* CL 116* 113* 111* CO2 12* 12* 14* BUN 82* 84* 56* CREATININE 4.93* 4.93* 2.64* Last 3 LFTs Recent Labs 05/12/1718 11/26/16 1033 AST 11 21 ALT 10 13 ALKPHOS 101 98 BILITOT 0.3 0.3 BILIDIR 0.1 0.1 FSBG Trend No results for input(s): POCGLU in the last 72 hours. MICRO: No results for input(s): URINECULTURE in the last 720 hours. No results for input(s): GRAMSTAIN, BFCX, LOWERRESPCX, TISSUECX in the last 720 hours. No results for input(s): BLOODCX in the last 720 hours. ECG: Recent Labs 05/11/172117 DIAGLINE Marked sinus bradycardia Abnormal ECG When compared with ECG of 26-NOV-2002 10:23, T wave amplitude has decreased in Lateral leads QTCCALC 400 VASCULAR: No results for input(s): VBTEXTRPT in the last 720 hours. IMAGING: CXR IMPRESSION Asymmetric opacity superimposing onto the costochondral junction of the first rib on the right, presumably due to degenerative disease. However, given history of weight loss and immunosuppression and presumably concern for malignancy a CT is recommended. Chest radiograph is not an accepted modality to exclude pulmonary malignancy.UNEXPECTED FINDING. Renal U/S: 1. Transplant kidney with dampened peak systolic velocities in the midpolearcuate arteries since 2010. Allowing for differences in scale, remainingvelocities and waveforms are stable. Normal resistive indices. 2. The renal parenchyma is normal. No perinephric fluid collection.3. No collecting system dilation.I have personally reviewed the image(s) and the residents interpretation andagree with the findings, A/P: Mr. Ambrose is a 56 y.o. 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 This is occurring in the setting of significant recent weight loss and is notably slightly hypotensive on arrival. Course c/b new suspected UGIB with hematemesis am of 05/12. ?? #TRISTIAN on CKD in pt s/p DDRT 2002 w/ hx IgA nephropathy/prograf toxicity. #AGMA Currently suspect acute process given phosphorous within normal limits. FeNa low suggestive of prerenal etiology. Likely related to history of diarrhea/vomiting, GIB. Despite IVF overnight Cr unchanged; likely complicated by further losses due to emesis overnight. Acidosis likely related to renal failure. Lactic flat on admission. -Cont IVF 1/2 NS 150 cc/hr for now -Pat < 20 -UA largely bland, 30 mg/dl protein similar to prior. -Renal U/S without evidence of obstruction or change in resistive indices. -Reduce home cellcept to 250 mg 2xD for now -Tacrolimus level from this am pending; will obtain another trough level tomorrow. -NPO for now; otherwise will need Low K diet -Start bicarb 1300 mg 3xD; trend HCO3 levels. -Avoid NSAIDS, nephrotoxins -Renally dose medications. #UGIB: Unclear etiology; question uremic gastritis in setting of supratherapuetic INR vs malignancygiven history of weight loss. Hgb 8.5 -> 7.2 - > 6.9 -INR 5.9 this am; reversed with 10 mg IV Vit K -Will give 3 u FFP -Give 2 u PRBC -IV PPI 2xD -Trend H/H BID, goal Hgb >7 -T&S -Maintain 2 large bore IV access -GI consulted; plan for EGD likely this afternoon or tomorrow. #Weight loss: Gives history of ~20 lb weight loss over past few weeks without significant change inpo intake; does give history of recent recurrent watery diarrhea, occasional vomiting. No night sweats or other B symptoms. CXR showing unexpected finding of opacity, likely DJD but cannot exclude malignancy .-Prealbumin wnl suggestive of adequate oral intake. -Given immunocompromised status and diarrhea will pursue giardia, cryptosporidium, c diff, stool cultures -TSH wnl -A1c wnl -F/u CT C/A/P wo contrast to evaluate for evidence of malignancy given CXR findings. Cannot use contrast due to renal history. -EGD as above. #Bradycardia - Reports baseline near 50. Appears asymptomatic. HR currently ranging in upper 40s-50s. -EKG showing sinus bradycardia -Holding metoprolol as above #HTN -Hold metoprolol 50 3xD, hydralazine 50 mg 2xD -Will need to clarify if still taking Cartia XL in am with pharmacy #HypoTSH -Cont home levothyroxine ?? #Gout -Reduce allopurinol to 100 mg daily for renal dosing ?? #TBI/Seizure d/o: -Cont home keppra #DVT -Holding coumadin as above in setting of UGIB -Pharmacy warfarin consult. #DVT: Supratherapuetic INR currently #Diet: NPO for now; then renal pending EGD results #Code Full #Dispo pending evaluation of weight loss, TRISTIAN, and UGIB ?? Team Pager( Coverage 01/02): #[phone] PCP: Carroll Fuentes DO [phone] Attestation: IPI Certification I certify that I am a D-H credentialed attending provider with admitting privileges and that the patient meets or has met medical necessity to require an inpatient IPI level of care meeting a minimumof two midnights or is on the [facility] inpatient only procedure list (status C) due to: GIB, TRISTIAN Jesenia Dolan MD 05/12/2017 * Mayra Hernandez RN - 05/12/2017 5:57 AM EDT Last value Range last 12 hrs Temperature Temp: 37 ??C (98.6 ??F) Temp: [37 ??C (98.6 ??F)] Heart Rate Heart Rate: 55 Heart Rate: [45-58] Blood Pressure BP: 106/60 BP: (89-139)/(60-92) Respiratory Rate Resp: 16 Resp: [16] SpO2 SpO2: 97 % SpO2: [97 %-100 %] Cardiac/Telemetry Nursing Progress Note [id number] Subjective: Pt denies chest pain, SOB, and palpitations. Intermittent nausea. Objective: Vital Signs: See Vital signs below Cardiac Meds: See online MAR Labs: See labs in online chart. Assessment: Pt bradycardic, SR, Rare PACs, HR 55- 90, OK 0.20, R 1.11, QT 0.44, QTc 0.41 Plan: Continue telemetry monitoring. Notify MD of any changes. See Attached Tele Strip. (in green paper chart). documented in this encounter H&P Notes * Rishabh Varghesee Ronny - 05/13/2017 4:51 PM EDT Gastroenterology and Hepatology Pre-Procedure History and Physical Exam Procedure: EGD: Indication: hematemesis Brief HPI: please see GI consult note from 05/12 for full details. 56-year-old man with CKD s/p 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 He has had intermittent nausea and vomiting over the last week, and overnight he had an episode hematemesis. INR now 1.5 (was 6 on admission): plan to precede with EGD to look for source of upper GI bleed. Patient Active Problem List Diagnosis Code ??? [...] N18.4 ??? 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 H/O kidney transplant Z94.0 ??? TRISTIAN (acute kidney injury) N17.9 ??? Weight loss R63.4 EXAM: HEENT: Airway examined, oropharynx clear Mallampati Score: per anesthesia LUNGS: Clear to auscultation HEART: Regular rate and rhythm, normal S1, S2 ABDOMEN: Normal bowel sounds, soft, non tender, non distended, A/P Proceed with the planned endoscopic procedure. ASA 2 - Patient with mild systemic disease with no functional limitations Sedation Plan: anesthesia Risks and benefits of the procedure explained to the patient. Consent signed. * Jesenia Dolan MD - 05/11/2017 7:49 PM EDT Inpatient Hospital Medicine - Admission Note Problem List: Active Hospital Problems Diagnosis ??? TRISTIAN (acute kidney injury) Resolved Hospital Problems Diagnosis Date Resolved No resolved problems to display. Active Non-Hospital Problems Diagnosis ??? CKD (chronic kidney disease) stage 4, GFR 15-29 ml/min ??? 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 FPC current use of immunosuppressive drug ??? H/O [...] ??? Epilepsy ??? End stage renal disease ID: 56 y.o. Male presents to [facility] with TRISTIAN History of Present Illness: HPI Mr. Ambrose is a 56 y.o. 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 He denies recent change in po intake and has been drinking close to 3L of fluid daily. Does note few episodes of nausea with vomiting earlier this week, and he has also been experiencing intermittent diarrhea though reports that stools have been largely regular for the past few weeks. Denies any NSAID use. No pain or straining on voiding. No fevers, chills. He denies any pain. Reports that he is continuing to make urine at a relatively normal amount, most recently voiding this afternoon. He does note an approximately 20 lb weight loss over the past few weeks. Denies significant change in appetite. No night sweats. No difficulty swallowing. No black or tarry BM. Had a screening colonoscopy in 02/2017 in [facility] by Dr. Saab (sp?). Denies any recent change in medication regimen. Has been taking cellcept 750 mg twice daily and tacrolimus 1 mg twice daily as prescribed. Review of Systems: Review of Systems RoS as above, otherwise 14 pt ROS negative. Past Medical and Surgical History: Past Medical [...] performed by Miguel Angel Moreno MD at [facility] OR ??? PRO EXC PAROTD, TOTAL, UNILAT RAD NECK Left 02/05/2016 @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, TOTAL, WITH UNILATERAL RADICAL NECK DISSECTION performed by Miguel Angel Moreno MD at [facility] OR ??? PRO EXC SKIN MALIG 3.1-4CM FACE, FACIAL Left 02/05/2016 EXC MALIGNANT LESION, 3.1 TO 4.0CM, FACE performed by Miguel Angel Moreno MD at [facility] OR ? ? PRO EXC SKIN MALIG >4CM TRUNK, ARM, LEG 04/19/2012 EXC MALIGNANT LESION, MICHAEL > 4.0CM, TRUNK performed by SABRINA SANCHEZ at [facility] OR ??? PRO REPAIR INTERMEDIATE S/A/T/E 2.6-7.5 CM 04/19/2012 REPAIR INTERMEDIATE WOUND, (NO HANDS OR FEET) 2.6 TO 7.5CM, UPPER EXTREMITY performed by SABRINA SANCHEZ at [facility] OR ? ? PRO SPLIT GRFT, HEAD, FAC, HAND, FEET <100SQCM N/A 02/20/2016 SPLIT THICKNESS SKIN SPLIT GRAFT,100SQ CM OR LESS, NECK performed by Miguel Angel Moreno MD at [facility] OR ??? PRO VASCULAR SURGERY PROCEDURE UNLIST Left 11/20/2015 LIGATION\REPAIR AV FISTULA performed by Camilo Ireland MD at [facility] OR ??? PRO VASCULAR SURGERY PROCEDURE UNLIST Left 11/20/2015 EXCISION VEIN FROM HAND performed by Camilo Ireland MD at [facility] OR ??? US RENAL TRANSPLANT BIOPSY 12/31/2010 Prior To Admission Medications: Prescriptions Prior to Admission Medication Sig Dispense Refill Last Dose ??? hydrALAZINE (APRESOLINE) 50 mg Tablet Take 1 tablet by mouth 2 times daily. 180 tablet 3 ??? mycophenolate (CELLCEPT) 250 mg Capsule Take 3 capsules by mouth 2 times daily. Kidney Transplant Z94.0. Transplant Date; 11-26-02 180 capsule 11 ??? CARTIA XT 120 mg Capsule, Sust. Release 24 hr take 1 capsule by mouth once daily 90 capsule 0 ??? allopurinol (ZYLOPRIM) 100 mg Tablet Take 1 and 1/2 tablet daily. 45 tablet 11 ??? tacrolimus (PROGRAF) 1 mg Capsule Take 1 capsule twice daily. Kidney transplant 11/26/2002. ICD code Z94.0 60 capsule 11 Taking at Unknown time ??? levETIRAcetam (KEPPRA) 500 mg Tablet take 1 tablet by mouth every morning and 2 tablets by mouth every evening (Patient taking differently: 500 mg 2 times daily.) 90 tablet 5 Taking at Unknown time ??? multivitamin Capsule Take 1 capsule by mouth daily. Taking at Unknown time ??? acetaminophen (TYLENOL) 500 mg Tablet Take 2 tablets by mouth every 8 hours. 30 tablet 1 Takingat Unknown time ??? warfarin (COUMADIN) 5 mg tablet Take 1 tablet (5 mg) by mouth on , and 1.5 tablets (7.5mg) on all other days. Weekly dose = 50 mg. Take at the same time each day, preferably between 5:00and 6:00 PM. 60 tablet 11 Taking at Unknown time ??? levothyroxine (SYNTHROID) 88 mcg tablet Take 88 mcg by mouth daily. Taking at Unknown time ??? metoprolol tartrate (LOPRESSOR) 50 mg tablet Take 50 mg by mouth 3 times daily. Taking at Unknown time Allergies: Allergies Allergen Reactions ??? 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 Smoking status: Former Smoker Packs/day: 0.25 Years: 1.50 Types: Cigarettes Quit date: 12/03/2000 ??? Smokeless tobacco: Former User Quit date: 04/14/2001 ??? Alcohol use No ??? Drug use: Yes Special: Marijuana ??? Sexual activity: Not on file Comment: Deferred Other Topics Concern ??? Not on file Social History Narrative Immunizations: Immunization History Administered Date(s) Administered ??? Hepatitis B Vaccine, unspecified formulation 10/31/2001 ??? Influenza PF, Split 03/12/2016 ??? Influenza Vaccine w/Preservative, Split 04/20/2013 ??? Influenza Vaccine, Whole 06/11/2006, 04/09/2009 ??? Pneumococcal Conjugate (13 Valent) 05/20/2016 ??? Pneumococcal Polyvalent 23 05/23/2013 ??? Tdap Vaccine 11/26/2016 Physical Exam: Last Set of Vitals and range of vitals over past 24 hours: Last value Range last 24 hrs Temperature Temp: 36.4 ??C (97.5 ??F) Temp: [36.4 ??C (97.5 ??F)] Heart Rate Heart Rate: 58 Heart Rate: [58] Blood Pressure BP: (!) 89/63 BP: (89)/(63) Respiratory Rate Resp: 16 Resp: [16] SpO2 SpO2: 99 % SpO2: [99 %] Body mass index is 22.56 kg/(m^2). Physical Exam Gen: Cachetic appearing, otherwise in NAD HEENT: Oral mucosa slightly dry appearing Neck: No JVD CV: Bradycardic, no mrg Lungs: Clear Abd: Soft, nt nd decreased BS. No CVA ttp Extr: 1+ LE edema b/l Skin: No rash Laboratory (Last 24 Hours): No results found for this or any previous visit (from the past 24 hour(s)). Microbiology: n/a Radiology: Renal US pending Other Studies: EKG - pending Assessment: Mr. Ambrose is a 56 y.o. 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 This is occurring in the setting of significant recent weight loss and is notably slightly hypotensive on arrival. #TRISTIAN on CKD in pt s/p DDRT 2002 w/ hx IgA nephropathy/prograf toxicity. Unclear whether this represents recurrence of IgA nephropathy vs graft disease or possibly related to dehydration/component of hypotensive ATN given low BP initially on arrival. This BP resolved without intervention to 130sso unclear whether he has truly been hypotensive at home. Presently have concern for component of dehydration/ possibly hypotensive ATN contributing to acute worsening of graftfunction. Cr as of 03/2017 of 3.16. -Will discuss further transplant team in the AM -NS 100 cc/hr overnight -F/u UA, urine sodium, urine osm, urine creatinine. -F/u tacrolimus levels -F/u transplant ultrasound -Cont home cellcept 750 mg 2xD, tacrolimus 1 mg 2xD for now. -Low K diet -Avoid NSAIDS, nephrotoxins -Renally dose medications. #Weight loss: Gives history of ~20 lb weight loss over past few weeks without significant change inpo intake; does endorse having issues with diarrhea earlier in the fall but states that has largelyresolved. No night sweats or other B symptoms. Suspect most likely related to history of recent diarrhea vs progressive renal dysfunction. -Will attempt to obtain records of recent colonoscopy -F/u TSH, LFTs, Ca, Phosph, A1c. -F/u pre albumin -F/u CXR -If diarrhea recurs will pursue infectious workup. #HTN: -Continue metoprolol 50 3xD, hydralazine 50 mg 2xD with holding parameters. -Clarify if still taking Cardia XL in am with pharmacy #Bradycardia - Reports baseline near 50. Appears asymptomatic. HR currently ranging in upper 40s-50s. -F/u EKG, TSH -Hold metop for HR < 60 #HypoTSH -Cont home levothyroxine #Gout -Reduce allopurinol to 100 mg daily for renal dosing #TBI/Seizure d/o: -Cont home keppra #DVT -Cont home coumadin -Pharmacy warfarin consult. ?? Admit to Medicine ?? Physical Therapy referral ?? DVT Prophylaxis - on wafarin ?? If currently a smoker - advised about smoking cessation and will provide smoking cessation material and support. ?? Pneumovax and Influenza Immunizations given as needed. ?? Discussed Advanced Directives and Code Status. The patient wishesto be Full Code. A copy of this document will be sent to the patient's Primary Care Physician and/or Referring Physician. Jesenia Dolan MD 05/11/2017 documented in this encounter Miscellaneous Notes * Plan of Care - Nancy Ahumada RN - 05/16/2017 12:17 PM EST Problem: Patient Care Overview Goal: Plan of Care Review Outcome: Ongoing (Interventions Implemented as Appropriate) 05/16/17 1214 Coping/Psychosocial Plan Of Care Reviewed With patient Plan of Care Review Progress improving OUTCOME EVALUATION NOTE: OUTCOME SUMMARY: Pt AAOx4, calm and cooperative. Independent & able to make needs known. Tolerating full liquids. Ambulating in halls. Tachy w activity. Magnesium supplemented. VSS. No new events. Awaiting d/c home. WCTM until safe d/c. PLAN MOVING FORWARD: Discharge planning INDIVIDUALIZED FALL PREVENTION INTERVENTIONS: Patient-specific fall risk factors per assessment: [current deficits]: IV, O2 sat monitor Assistance [level of assistance required for transfers and ambulation]: independent Supervision [direct monitoring required during toileting and ADLs]: independent Surveillance [continuous indirect monitoring]: Masimo, tele, purposeful rounding Patient-specific fall prevention interventions for sensory deficits provided, if applicable: na CPG GOAL OUTCOME EVALUATION: * Plan of Care - Rosita Aranda RN - 05/16/2017 3:47 AM EST Problem: Patient Care Overview Goal: Plan of Care Review Outcome: Ongoing (Interventions Implemented as Appropriate) 05/16/17 0344 Coping/Psychosocial Plan Of Care Reviewed With patient Plan of Care Review Progress improving OUTCOME EVALUATION NOTE: OUTCOME SUMMARY: No acute events. HR remains yamilka to 50's at rest, tachy to 120's with ambulation. VS otherwise stable. Pt A+Ox4. Pt. had one episode of non-bloody emesis overnight. PRN zofran given with good effect. Will continue to monitor and notify MD of any acute events. PLAN MOVING FORWARD: - Tele - Renal lesion workup - Monitor for s/sx of bleeding INDIVIDUALIZED FALL PREVENTION INTERVENTIONS: Patient-specific fall risk factors per assessment: [current deficits]: Generalized weakness, intermittent nausea, masimo cord Assistance [level of assistance required for transfers and ambulation]: Standby Supervision [direct monitoring required during toileting and ADLs]: Eyes on Surveillance [continuous indirect monitoring]: Purposeful rounding Patient-specific fall prevention interventions for sensory deficits provided, if applicable: NA CPG GOAL OUTCOME EVALUATION: Goal: Fall Prevention-Safe Patient Handling Outcome: Ongoing (Interventions Implemented as Appropriate) 05/13/17200005/15/17 1300 05/15/171999 Restraint Interventions Safety Promotion/Fall Prevention -- -- -- Musculoskeletal Interventions Muscle Strengthening activity/mobility promoted -- -- Activity and Safety Assistive Device None -- -- Toribio Fall Risk History of Falling -- -- 0 Secondary Diagnosis -- -- 15 Ambulatory Aids -- -- 0 Intravenous Therapy/Heparin/Saline Lock -- -- 20 Gait/Transferring -- -- 0 Mental Status -- -- 0 Score -- -- 35 OTHER Toribio Fall Risk -- -- Med Positioning Body Position -- -- -- Daily Care Interventions Self-Care Promotion -- independence encouraged -- 05/16/17 0200 Restraint Interventions Safety Promotion/Fall Prevention fall prevention program maintained;safety round/check completed Musculoskeletal Interventions Muscle Strengthening -- Activity and Safety Assistive Device -- Toribio Fall Risk History of Falling -- Secondary Diagnosis -- Ambulatory Aids -- Intravenous Therapy/Heparin/Saline Lock -- Gait/Transferring -- Mental Status -- Score -- OTHER Toribio Fall Risk -- Positioning Body Position independent Daily Care Interventions Self-Care Promotion -- Goal: Infection Control Outcome: Ongoing (Interventions Implemented as Appropriate) 05/15/171999 Safety Interventions Isolation Precautions standard precautions maintained Infection Prevention environmental surveillance performed;rest/sleep promoted Coping Strategies Supportive Measures positive reinforcement provided;self-care encouraged;verbalization of feelings encouraged * Plan of Care - Nanda Mg RN - 05/15/2017 6:40 PM EDT Problem: Patient Care Overview Goal: Plan of Care Review Outcome: Ongoing (Interventions Implemented as Appropriate) 05/15/17 1192 Coping/Psychosocial Plan Of Care Reviewed With patient Plan of Care Review Progress progress toward functional goals as expected OUTCOME EVALUATION NOTE: OUTCOME SUMMARY: Hgb is going up; no symptoms although bradycardic at rest and tachycardic upon standing in late afternoon; patient rec'd new information about kidney US results and potential cancer diagnosis Late day high blood pressure MD paged with text. New rash on back and upper torso.MD aware. PLAN MOVING FORWARD: Continue to encourage P.O. Intake Monitor BP and telemetry Treat new rash and monitor Notify MD of any change in status INDIVIDUALIZED FALL PREVENTION INTERVENTIONS: Patient-specific fall risk factors per assessment: [current deficits]: None at this time Assistance [level of assistance required for transfers and ambulation]: Independent Supervision [direct monitoring required during toileting and ADLs]: Eyes on Surveillance [continuous indirect monitoring]: Hourly rounding Patient-specific fall prevention interventions for sensory deficits provided, if applicable: N/A CPG GOAL OUTCOME EVALUATION: * Consult Note - Nell Page [facility] - 05/15/2017 11:26 AM EDT Pharmacy Warfarin Management Service Daily Consult Note: Warfarin Management Plan: Ordering Provider: Dr. Jesenia Dolan Indications: DVT Status: Continuation of Home Therapy Goal INR: : 2.0 - 3.0 Duration of Therapy: 6 months Previous home regimen: 5mg and 7.5 mg all other days. However, fax fron PCP office shows very variable dosing 35 to 55 mg per week. Date INR Dose Ordered Pharmacist Assessment 05/12/2017 5.9 Hold Hold, INR 5.9 and got 10 mg Vit K IV. HGB 6.9 Nutrition: ALB = 3 ate 2200 snacksx2. Stool none ,nausea, Urine clear yellow 05/13/2017 1.5 Hold Hold for additoinal GI evaluation. HGB 8.2 and stable. Nutrition: ALB 3 today, Nausea with 2200 snack reported. Stool was reported as some bright red blood with brown liquid and urine clear yellow. 05/14/2017 1.3 Hold Hold as HGB continues to decline with suspicion of bleeding.. HGB 8.2 from 8.9 yesterday. Nitrition: Ate sandwitch at 22:00 last nighrt and all of lunch today; it appears to be no other meals were taken. Stool has no report and very little clear yellow urine for this renal patient. 05/15/2017 1.2 Hold Continuing to hold warfarin with recent GI bleed. Started subcutaneous heparin DVT prophylaxis with subtherapeutic INR. Recent Labs 05/15/17 0844 05/14/17 1826 05/14/17 0608 05/13/17 0600 PT 14.7* -- 16.1* -- 17.9* INR 1.2* -- 1.3* -- 1.5* HGB 8.8* 8.0* 8.2* < > 8.2* HCT 24.9* 23.6* 23.2* < > 23.3* PLATELET 167 172 158 < > 179 BUN 37* 44* 54* < > 67* CREATININE 2.52* 2.70* 3.14* < > 3.87* < > = values in this interval not displayed. Estimated Creatinine Clearance: 33.4 mL/min (based on Cr of 2.52). Warfarin Drug Interactions (clinically relevant): heparin 5000 units subcutaneously BID Assessment: Warfarin Sensitivity Assessment: Age 50-75 years old;Malnourished/NPO greater than 3 days;Malignancy Today's INR: 1.2 is Subtherapeutic Pharmacist Asessment Notes: Continuing to hold warfarin with recent GI bleed. Started subcutaneous heparin DVT prophylaxis with subtherapeutic INR. Plan: Warfarin dose ordered: Hold Pharmacist Plan notes: Daily CBC and INR Discharge Planning: Patient education: Completed Coumadin education booklet provided: Yes AVS documentation: In Progress [place] documents attached to AVS: Vitamin K Diet, Warfarin Thank you very much for the consult. We will continue to dose and monitor warfarin daily. If there is a change in medical condition that warrants discontinuation of warfarin, please discontinue the pharmacy warfarin consult and communicate this to the pharmacy warfarin management service. Pharmacy warfarin management service pager: #[phone] NELL PAGE RPH * Plan of Care - Selma Torres RN - 05/14/2017 7:45 PM EDT Problem: Patient Care Overview Goal: Plan of Care Review Outcome: Ongoing (Interventions Implemented as Appropriate) 05/14/171940 Coping/Psychosocial Plan Of Care Reviewed With patient Plan of Care Review Progress improving OUTCOME EVALUATION NOTE: OUTCOME SUMMARY: Patient is tolerating full liquid diet. He had a bowel movement this afternoon with no blood. Urineoutput is good. No complaints of pain. Runs of potassium given as ordered. PLAN MOVING FORWARD: Continue IVF's as ordered. Monitor electrolytes and replete as needed per MD orders. Notify MD of any change in status. INDIVIDUALIZED FALL PREVENTION INTERVENTIONS: Patient-specific fall risk factors per assessment: [current deficits]: Lines, tubes Assistance [level of assistance required for transfers and ambulation]: Stand by Supervision [direct monitoring required during toileting and ADLs]: Eyes on/arms reach Surveillance [continuous indirect monitoring]: Hourly rounding Patient-specific fall prevention interventions for sensory deficits provided, if applicable: None CPG GOAL OUTCOME EVALUATION: * Plan of Care - Selma Torres RN - 05/14/2017 7:40 PM EDT Problem: Patient Care Overview Goal: Interdisciplinary Rounds/Family Conf 05/14/171939 Interdisciplinary Rounds/Family Conf Participants nursing;patient;physician * Initial Assessments - Danette Armas - 05/14/2017 3:07 PM EDT Nutrition Initial Note Christy Ginna Ambrose is a 56 y.o. male Reason for intervention: NPO follow up Nutrition Recommendations: - Continue full liquid diet, advance per team discretion. - Continue to monitor potassium and magnesium and replenish as necessary - Provide pt preferences for meals and snacks - Monitor and weigh pt twice weekly - Nutrition to follow up Patient Active Problem List Diagnosis Code ??? [...] N18.4 ??? 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 H/O kidney transplant Z94.0 ??? TRISTIAN (acute kidney injury) N17.9 ??? Weight loss R63.4 Past Medical History: Diagnosis Date ??? BP (high blood pressure) ??? DVT (deep venous thrombosis) ??? Gout ??? Hypertension ??? Kidney problem ??? Pneumonia ??? TBI (traumatic brain injury) 1979 Active Orders Diet Full Liquid Frequency: Effective Now Number of Occurrences: Until Specified Admit Weight: 71.31 kg Estimated body mass index is 22.56 kg/(m^2) as calculated from the following: Height as of this encounter: 177.8 cm (5' 10). Weight as of this encounter: 71.3 kg (157 lb 3.2 oz). [place] body weight: 73 kg (160 lb 15 oz) Estimated needs: Calories: 7907-0054 (25-30 kcal/kg) Protein: 85-100 grams (1.2- 1.5 g/kg) Today's medications: Potassium chloride, warfarin, magnesium sulfate, protonix Lab Results Component Value Date NA 143 05/14/2017 K 2.9 (CRIT) 05/14/2017 CL 110 (H) 05/14/2017 CO2 17 (L) 05/14/2017 BUN 54 (H) 05/14/2017 CREATININE 3.14 (H) 05/14/2017 GLUCOSE 123 05/14/2017 MAGNESIUM 0.65 (L) 05/14/2017 CALCIUM 7.4 (L) 05/14/2017 PHOS 4.4 05/12/2017 AST 11 05/12/2017 ALT 10 05/12/2017 ALKPHOS 101 05/12/2017 BILITOT 0.3 05/12/2017 BILIDIR 0.1 05/12/2017 TRIG 76 11/26/2016 Assessment: ?? 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 Spoke to RN regarding pt's intake. RN reports that patient has been adhering to full liquid diet. RN reports that pt eats everything on his tray and may benefit from supplements. Collected pt preferences and will add to trays. Will engage further discussion upon diet advancement. Danette Armas Liquid Flavor Compounder * Consult Note - Bhargav Pino RPH - 05/14/2017 2:02 PM EDT Pharmacy Warfarin Management Service Daily Consult Note: Warfarin Management Plan: Ordering Provider: Dr. Jesenia Dolan Indications: DVT Status: Continuation of Home Therapy Goal INR: : 2.0 - 3.0 Duration of Therapy: 6 months Previous home regimen: 5mg and 7.5 mg all other days. However, fax fron PCP office shows very variable dosing 35 to 55 mg per week. Date INR Dose Ordered Pharmacist Assessment 05/12/2017 5.9 Hold Hold, INR 5.9 and got 10 mg Vit K IV. HGB 6.9 Nutrition: ALB = 3 ate 2200 snacksx2. Stool none ,nausea, Urine clear yellow 05/13/2017 1.5 Hold Hold for additoinal GI evaluation. HGB 8.2 and stable. Nutrition: ALB 3 today, Nausea with 2200 snack reported. Stool was reported as some bright red blood with brown liquid and urine clear yellow. 05/14/2017 1.3 Hold Hold as HGB continues to decline with suspicion of bleeding.. HGB 8.2 from 8.9 yesterday. Nitrition: Ate sandwitch at 22:00 last nighrt and all of lunch today; it appears to be no other meals were taken. Stool has no report and very little clear yellow urine for this renal patient. Recent Labs 05/14/17 0608 05/13/17 2026 05/13/17 1344 05/13/17 0600 05/12/17 1402 PT 16.1* -- -- 17.9* -- 27.5* INR 1.3* -- -- 1.5* -- 2.6* HGB 8.2* 8.9* 8.3* 8.2* < > -- HCT 23.2* 25.7* 24.2* 23.3* < > -- PLATELET 158 168 165 179 < > -- BUN 54* -- 64* 67* < > -- CREATININE 3.14* -- 3.56* 3.87* < > -- < > = values in this interval not displayed. Estimated Creatinine Clearance: 26.8 mL/min (based on Cr of 3.14). Warfarin Drug Interactions (clinically relevant): ApAp to prn, Allopurinol 100 mg daily, levothyroxin 88 mcg, Assessment: Warfarin Sensitivity Assessment: Age 50-75 years old;Malnourished/NPO greater than 3 days;Malignancy Today's INR: 1.3 is Subtherapeutic Pharmacist Asessment Notes: Hold as HGB continues to decline with suspicion of bleeding.. HGB 8.2 from 8.9 yesterday. Nitrition: Ate sandwitch at 22:00 last nighrt and all of lunch today; it appears to be no other meals were taken. Stool has no report and very little clear yellow urine for this renal patient. Plan: Warfarin dose ordered: Hold Pharmacist Plan notes: Daily CBC and INR Discharge Planning: Patient education: Completed Coumadin education booklet provided: Yes AVS documentation: In Progress [place] documents attached to AVS: Vitamin K Diet, Warfarin Thank you very much for the consult. We will continue to dose and monitor warfarin daily. If there is a change in medical condition that warrants discontinuation of warfarin, please discontinue the pharmacy warfarin consult and communicate this to the pharmacy warfarin management service. Pharmacy warfarin management service pager: #[phone] BHARGAV PINO RPH * Plan of Care - Yasmeen Woodall RN - 05/14/2017 6:42 AM EDT Problem: Patient Care Overview Goal: Plan of Care Review Outcome: Ongoing (Interventions Implemented as Appropriate) 05/13/17200105/13/172029 Coping/Psychosocial Plan Of Care Reviewed With -- patient Plan of Care Review Progress progress toward functional goals as expected -- OUTCOME EVALUATION NOTE: OUTCOME SUMMARY: IV fluids maintained throughout the night, IV mag replacement administered as prescribed, cardiac monitoring. Vials stable. Will continue to monitor. PLAN MOVING FORWARD: IV fluids CT scan INDIVIDUALIZED FALL PREVENTION INTERVENTIONS: Patient-specific fall risk factors per assessment: [current deficits]: Medium risk related to IV therapy Assistance [level of assistance required for transfers and ambulation]: Independent-standby Supervision [direct monitoring required during toileting and ADLs]: Eyes on Surveillance [continuous indirect monitoring]: Purposeful hourly rounding, Masimo, Telemetry Patient-specific fall prevention interventions for sensory deficits provided, if applicable: [X] N/A CPG GOAL OUTCOME EVALUATION: * Plan of Care - Selma Torres RN - 05/13/2017 8:05 PM EDT Problem: Patient Care Overview Goal: Plan of Care Review Outcome: Ongoing (Interventions Implemented as Appropriate) 05/13/172001 Coping/Psychosocial Plan Of Care Reviewed With patient Plan of Care Review Progress progress toward functional goals as expected OUTCOME EVALUATION NOTE: OUTCOME SUMMARY: Patient had episodes of tachycardia when standing up to void. No complaints of pain or discomfort. Patient states he would like to eat healthier and and looking forward to eating again. Urine output is good. No evidence of edema after increasing IVF's this afternoon. Patient returned from Endoscopyat shift change, and settled into bed. PLAN MOVING FORWARD: Continue IVF's as ordered. Encourage activity as tolerated. Notify MD of any change in status. INDIVIDUALIZED FALL PREVENTION INTERVENTIONS: Patient-specific fall risk factors per assessment: [current deficits]: Post procedure/weakness Assistance [level of assistance required for transfers and ambulation]: Stand-by Supervision [direct monitoring required during toileting and ADLs]: Eyes on/arms reach Surveillance [continuous indirect monitoring]: Hourly rounding Patient-specific fall prevention interventions for sensory deficits provided, if applicable: None CPG GOAL OUTCOME EVALUATION: * Consult Note - Bhargav Pino, [facility] - 05/13/2017 3:01 PM EDT Pharmacy Warfarin Management Service Daily Consult Note: Warfarin Management Plan: Ordering Provider: Dr. Jesenia Dolan Indications: DVT Status: Continuation of Home Therapy Goal INR: : 2.0 - 3.0 Duration of Therapy: 6 months Previous home regimen: 5mg and 7.5 mg all other days. However, fax fron PCP office shows very variable dosing 35 to 55 mg per week. Date INR Dose Ordered Pharmacist Assessment 05/12/2017 5.9 Hold Hold, INR 5.9 and got 10 mg Vit K IV. HGB 6.9 Nutrition: ALB = 3 ate 2200 snacksx2. Stool none ,nausea, Urine clear yellow 05/13/2017 1.5 Hold Hold for additoinal GI evaluation. HGB 8.2 and stable. Nutrition: ALB 3 today, Nausea with 2200 snack reported. Stool was reported as some bright red blood with brown liquid and urine clear yellow. Recent Labs 05/13/17 1344 05/13/17 0600 05/12/17 2349 05/12/17 1402 05/12/17 1156 05/12/17 0733 PT -- 17.9* -- 27.5* -- 53.8* INR -- 1.5* -- 2.6* -- 5.9* HGB 8.3* 8.2* 8.1* -- 6.9* -- HCT 24.2* 23.3* 23.1* -- 21.6* -- PLATELET 165 179 166 -- 193 -- BUN -- 67* 71* -- 80* -- CREATININE -- 3.87* 4.11* -- 4.31* -- Estimated Creatinine Clearance: 21.8 mL/min (based on Cr of 3.87). Warfarin Drug Interactions (clinically relevant): ApAp to prn, Allopurinol 100 mg daily, levothyroxin 88 mcg, Assessment: Warfarin Sensitivity Assessment: Age 50-75 years old;Malnourished/NPO greater than 3 days;Malignancy Today's INR: 1.5 is Subtherapeutic Pharmacist Asessment Notes: Hold for additoinal GI evaluation. HGB 8.2 and stable. Nutrition: ALB 3today, Nausea with 2200 snack reported. Stool was reported as some bright red blood with brown liquid and urine clear yellow. Plan: Warfarin dose ordered: Hold Pharmacist Plan notes: Daily CBC and INR Discharge Planning: Patient education: Completed Coumadin education booklet provided: Yes AVS documentation: Not documented [employer] documents attached to AVS: Vitamin K Diet, Warfarin Thank you very much for the consult. We will continue to dose and monitor warfarin daily. If there is a change in medical condition that warrants discontinuation of warfarin, please discontinue the pharmacy warfarin consult and communicate this to the pharmacy warfarin management service. Pharmacy warfarin management service pager: #[phone] BHARGAV PINO RPH * Plan of Care - Mayra Hernandez RN - 05/12/2017 11:39 PM EDT Problem: Patient Care Overview Goal: Plan of Care Review Outcome: Ongoing (Interventions Implemented as Appropriate) 05/12/17 2330 Coping/Psychosocial Plan Of Care Reviewed With patient Plan of Care Review Progress no change OUTCOME EVALUATION NOTE: OUTCOME SUMMARY: Pt A+O. VSS. Bradycardiac as low 37bpm nonsustained, asymptommatic. 2 units of RBCs completed. NPO at 000 for GI scope in AM. Team notified of 2 second tele pause, pt asymptomatic. Will CTM and notify MD of changes. PLAN MOVING FORWARD: Collect stool when able Monitor labs, review INR Upper GI scope, continue PPI US Consult transplant team Maintain safety INDIVIDUALIZED FALL PREVENTION INTERVENTIONS: Patient-specific fall risk factors per assessment: [current deficits]: IV infusing, unfamiliar surroundings, tele, masimo Assistance [level of assistance required for transfers and ambulation]: Independent, rings for assistance with IV pole Supervision [direct monitoring required during toileting and ADLs]: Independent, calls appropriately Surveillance [continuous indirect monitoring]: Purposeful rounding, room near unit station, bed alarm, Masimo, tele Patient-specific fall prevention interventions for sensory deficits provided, if applicable: [X] N/A CPG GOAL OUTCOME EVALUATION: * Plan of Care - Ilda Kate RN - 05/12/2017 5:51 PM EDT Problem: Patient Care Overview Goal: Plan of Care Review 05/12/17 0748 05/12/17 1743 Coping/Psychosocial Plan Of Care Reviewed With patient -- Plan of Care Review Progress -- no change Problem: Kidney Disease, Chronic/End Stage Renal Disease (Adult) Goal: Signs and Symptoms of Listed Potential Problems Will be Absent, Minimized or Managed (Kidney Disease, Chronic/End Stage Renal Disease) Signs and symptoms of listed potential problems will be absent, minimized or managed by discharge/transition of care (reference Kidney Disease, Chronic/End Stage Renal Disease (Adult) CPG). 05/12/17 0453 05/12/17 1743 Kidney Disease, Chronic/End Stage Renal Disease Problems Assessed (Chronic Kidney Disease/ESRD) all -- Problems Present (Chronic Kidney Disease/ESRD) -- drug/nephrotoxicity;electrolyte imbalance;functional decline/self-care deficit;hematologic complications;undernutrition Problem: Gastrointestinal Bleeding (Adult) Goal: Signs and Symptoms of Listed Potential Problems Will be Absent, Minimized or Managed (Gastrointestinal Bleeding) Signs and symptoms of listed potential problems will be absent, minimized or managed by discharge/transition of care (reference Gastrointestinal Bleeding (Adult) CPG). 05/12/17 1743 Gastrointestinal Bleeding Problems Assessed (GI Bleeding) all Problems Present (GI Bleeding) none OUTCOME EVALUATION NOTE: OUTCOME SUMMARY: Pt a/o, pleasant through shift. Potassium and magnesium replaced via IV. Vitamin K infusion administered this morning and repeat INR 2.6. GI consulted and scope planned for tomorrow. Pt NPO after midnight. Currently receiving FFP and RBCs. VSS. 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 He has had intermittent nausea and vomiting over the last week, and overnight he had an episode of emesis which was streaked with blood. GI is consulted for UGIB. He was started on an IV PPI, and has remained HD stable without any further episodes of bleeding. FH / SH reviewed Review of Systems: 10 systems reviewed, remainder negative unless otherwise indicated in HPI Active Hospital Problem List Patient Active Problem List Diagnosis Code ??? [...] N18.4 ??? 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 H/O kidney transplant Z94.0 ??? TRISTIAN (acute kidney injury) N17.9 ??? Weight loss R63.4 Past Surgical History: Procedure Laterality Date ??? CREATED BY INTERFACE Entered not Verified Procedure Date: 09/19/2010 ??? KIDNEY TRANSPLANT KIDNEY TRANSPLANT / RECIPIENT/LT Procedure Date: 11/26/2002 ? ? PRO DEBRIDEMENT SUBCUTANEOUS TISSUE 20 SQCM/< Left 02/20/2016 DEBRIDEMENT SKIN AND SUBCU, HEAD/NECK performed by Miguel Angel Moreno MD at [facility] MA[facility] OR ??? PRO EXC PAROTD, TOTAL, UNILAT RAD NECK Left 02/05/2016 @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, TOTAL, WITH UNILATERAL RADICAL NECK DISSECTION performed by Miguel Angel Moreno MD at [facility] OR ??? PRO EXC SKIN MALIG 3.1-4CM FACE, FACIAL Left 02/05/2016 EXC MALIGNANT LESION, 3.1 TO 4.0CM, FACE performed by Miguel Angel Moreno MD at [facility] OR ? ? PRO EXC SKIN MALIG >4CM TRUNK, ARM, LEG 04/19/2012 EXC MALIGNANT LESION, MICHAEL > 4.0CM, TRUNK performed by SABRINA SANCHEZ at [facility] OR ??? PRO REPAIR INTERMEDIATE S/A/T/E 2.6-7.5 CM 04/19/2012 REPAIR INTERMEDIATE WOUND, (NO HANDS OR FEET) 2.6 TO 7.5CM, UPPER EXTREMITY performed by SABRINA SANCHEZ at [facility] OR ? ? PRO SPLIT GRFT, HEAD, FAC, HAND, FEET <100SQCM N/A 02/20/2016 SPLIT THICKNESS SKIN SPLIT GRAFT,100SQ CM OR LESS, NECK performed by Miguel Angel Moreno MD at [facility] OR ??? PRO VASCULAR SURGERY PROCEDURE UNLIST Left 11/20/2015 LIGATION\REPAIR AV FISTULA performed by Camilo Ireland MD at [facility] OR ??? PRO VASCULAR SURGERY PROCEDURE UNLIST Left 11/20/2015 EXCISION VEIN FROM HAND performed by Camilo Ireland MD at [facility] OR ??? US RENAL TRANSPLANT BIOPSY 12/31/2010 Medications Scheduled Meds: ??? pantoprazole 40 mg Intravenous BID ??? sodium bicarbonate 1,300 mg Oral TID ??? [START ON 05/13/2017] epoetin kerry 40,000 Units Subcutaneous Once per day on Wed ??? mycophenolate 250 mg Oral BID ??? [START ON 05/13/2017] warfarin (COUMADIN) daily order reminder Oral Q24H ??? potassium chloride 10 mEq Intravenous Q2H ??? allopurinol 100 mg Oral Daily ??? levETIRAcetam 500 mg Oral BID ??? levothyroxine 88 mcg Oral Daily ??? tacrolimus 1 mg Oral BID ??? sodium chloride 0.9 % 5 mL Intravenous BID Continuous Infusions: ??? dextrose 5% and sodium chloride 0.45% 150 mL/hr (05/12/17 1137) PRN Meds:.acetaminophen, sodium chloride 0.9 %, lidocaine, ondansetron Benazepril hcl; Codeine; Hydrochlorothiazide; and Pollen extracts Physical Examination Vitals: Last value Range last 24 hrs Temperature Temp: 36.9 ??C (98.4 ??F) Temp: [36.4 ??C (97.5 ??F)-37 ??C (98.6 ??F)] Heart Rate Heart Rate: 55 Heart Rate: [45-58] Blood Pressure BP: 117/77 BP: (89-139)/(60-92) Respiratory Rate Resp: 18 Resp: [16-18] SpO2 SpO2: 98 % SpO2: [97 %-100 %] Intake/Output Summary (Last 24 hours) at 05/12/17 1431 Last data filed at 05/12/17 1146 Gross per 24 hour Intake 1961 ml Output 2100 ml Net -139 ml Wt Readings from Last 3 Encounters: 05/11/17 71.3 kg (157 lb 3.2 oz) 11/26/16 82.6 kg (182 lb) 05/20/16 81.4 kg (179 lb 6.4 oz) Body mass index is 22.56 kg/(m^2). Most Recent Vitals: 05/12/17 1218 BP: 117/77 Pulse: 55 Resp: 18 Temp: 36.9 ??C (98.4 ??F) SpO2: 98% Gen: NAD Neuro: AAOx3; slow to answer questions, mild short term memory deficit Heent: NC/AT CVS: RRR no murmurs Lungs: CTAB anteriorly Abd: soft, NT, ND, NABS Skin: no rash appreciated on forearms / LE Ext: no edema Labs: Reviewed in EMR. Recent pertinent labs include: Recent Labs 05/12/17115505/12/1761705/11/172029 WBC 3.0* 2.7* 3.9* HGB 6.9* 7.2* 8.5* HCT 21.6* 21.3* 26.0* PLATELET 193 188 214 NEUTROABS 2.04 1.77 2.58 Recent Labs 05/12/17115505/12/1761705/11/172029 NA 143 148* 144 K 3.1* 3.3* 3.3* CL 115* 116* 113* CO2 12* 12* 12* BUN 80* 82* 84* CREATININE 4.31* 4.93* 4.93* Recent Labs 05/12/17115505/12/1761705/11/172029 CALCIUM 7.6* 7.4* 8.1* PHOS -- 4.4 -- Recent Labs 05/12/17617 AST 11 ALT 10 ALKPHOS 101 BILITOT 0.3 BILIDIR 0.1 Recent Labs 05/12/17 0733 INR 5.9* PT 53.8* Microbiology: Reviewed in eDH Pertinent Endoscopic Procedures/Reports: Reviewed in eDH Pertinent Recent Imaging Reviewed in eDH Assessment: 56-year-old man with CKD s/p 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 GI has been consulted for hematemesis. Ddx includes PUD (no recent NSAID use), or perhaps Tata-Weisstear in the setting of recent frequent vomting. No suspicion for cirrhosis. He is on coumadin, and I NR supratherapeutic to 6 on admission. Given that he is hemodynamically stable without further episodes of hematemesis, we prefer to delay EGD until INR < 1.8. Therefore we recommend vitamin K/FFP, and close monitoring throughout the day. If he were to become unstable, we would precede with EGD sooner. Recommendations - 2 large bore PIV's - active type and screen - Q8H H&H - agree with vitamin K for supratherapeutic INR; would also recommend FFP as goal INR < 1.8 for safe therapeutic endoscopy - OK for clears tonight; please keep NPO at midnight for EGD 05/13 - if evidence of large volume bleed, drop in Hgb, or HD instability please page GI -d/w attg, Dr. Barrera -please call w/ questions Anastasia Varghese MD, GI Fellow [phone] 05/12/2017 Associated attestation - Aditya Barrera MD - 05/12/2017 4:50 PM EDT Patient seen and examined on rounds. Respective pertinent labs and imaging reviewed. I agree with the full and thorough evaluation by Dr. Varghese including exam, history, ROS and treatment plan. Possible MWT, on DDX PUD vs spontaneous bleed 2/2 supratherapeutic INR related to coumadin use in setting of worsened renal insufficiency. Plan for reversal on coumadin, goal INR < 1.8, EGD potentiallytomorrow. 60 minutes total. * Consult Note - Bhargav Pino [facility] - 05/12/2017 1:03 PM EDT Pharmacy Warfarin Management Service Daily Consult Note: Warfarin Management Plan: Ordering Provider: Dr. Jesenia Dolan Indications: DVT Status: Continuation of Home Therapy Goal INR: : 2.0 - 3.0 Duration of Therapy: 6 months Date INR Dose Ordered Pharmacist Assessment 05/12/2017 5.9 Hold Hold, INR 5.9 and got 10 mg Vit K IV. HGB 6.9 Nutrition: ALB = 3 ate 2200 snacksx2. Stool none ,nausea, Urine clear yellow Recent Labs 05/12/17 1156 05/12/17 0733 05/12/17 0618 05/11/17 2030 PT -- 53.8* -- -- INR -- 5.9* -- -- HGB 6.9* -- 7.2* 8.5* HCT 21.6* -- 21.3* 26.0* PLATELET 193 -- 188 214 BUN 80* -- 82* 84* CREATININE 4.31* -- 4.93* 4.93* Estimated Creatinine Clearance: 19.5 mL/min (based on Cr of 4.31). Warfarin Drug Interactions (clinically relevant): ApAp scheduled, Allopurinol 100 mg daily, levothyroxin 88 mcg, Assessment: Warfarin Sensitivity Assessment: Age 50-75 years old;Malnourished/NPO greater than 3 days;Malignancy Today's INR: 5.9 is Supratherapeutic Pharmacist Asessment Notes: Hold, INR 5.9 and got 10 mg Vit K IV. HGB 6.9 Nutrition: ALB = 3 ate 2200 snacks x2. Stool none ,nausea, Urine clear yellow Plan: Warfarin dose ordered: Hold Pharmacist Plan notes: Daily CBC and INR Discharge Planning: Patient education: Not started Coumadin education booklet provided: No AVS documentation: Not documented Thank you very much for the consult. We will continue to dose and monitor warfarin daily. If there is a change in medical condition that warrants discontinuation of warfarin, please discontinue the pharmacy warfarin consult and communicate this to the pharmacy warfarin management service. Pharmacy warfarin management service pager: [phone] BHARGAV PINO RPH * Consult Note - Meaghan Hood RN - 05/12/2017 1:00 PM EDT Images from the original note were not included. Certified Wound Care Nurse Note Situation: Asked to see Christy Ambrose by nursing for left arm, open, raised, good pulse, pt had covered with dirty saturated bandaid, cleaned and covered with meplex, Background: eD-H notes reviewed for history, admitting diagnosis and active problem list. Wound Assessment and Care Provided: Pt sitting up in bed. Explained purpose of visit and pt agreed to assessment. 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 Pt reports having a brace on his arm prior to admission that rubbed an area open on his medial wrist. Mepilex border dressing removed and pt with pink and white wound bed on raised area of left medial wrist. Area cleansed and mepilex border dressing replaced. See photo: Left medial wrist: Aleks Score: 20 Last Pressure Ulcer Prevention assessment: Shift Pressure Injury Prevention Occiput: No Injury Thoracic Spine: No Injury Sacral: No Injury Ischial - left: No Injury Ischial - right: No Injury Heel - left: No Injury Heel - right: No Injury Elbow - left: No Injury Elbow - right: No Injury Device Sites: O2 sat monitor, IV sites Existing Wounds: Wound 05/12/17 1259 Left medial wrist (Active) Dressing Appearance dry;intact 05/12/2017 12:18 PM Base pink;moist;white 05/12/2017 12:18 PM Area other (see comments) 05/12/2017 12:18 PM Length (cm) 1.4 05/12/2017 12:18 PM Width (cm) 1 05/12/2017 12:18 PM Drainage Characteristics/Odor serous 05/12/2017 12:18 PM Drainage Amount scant 05/12/2017 12:18 PM Wound Cleaning cleansed with;sterile normal saline 05/12/2017 12:18 PM Dressing dressing applied;dressing removed 05/12/2017 12:18 PM Nutritional Status Wt Readings from Last 1 Encounters: 05/11/17 71.3 kg (157 lb 3.2 oz) Body mass index is 22.56 kg/(m^2). Current bed: [facility] Assessment: Pt with abrasion to left medial wrist. Wound Care Recommendations: Mepilex Border dressing-nursing to change every 3 days and PRN: left medial wrist 1. Cleanse wound with dermal wound cleanser. 2. Apply Mepilex Border dressing Mobility: Turn and reposition every 2 hours [...] chair to 2 hour intervals. Use a Third Age chair cushion beneath patient at all times while in the chair. Reinforce teaching to shift weight every 15 minutes while in the chair. Wound care will follow weekly. Discussed plan with: RN: Ilda Please contact MEAGHAN HOOD RN on pager [phone] or the wound care team at [phone] or pager [phone] with skin and wound care concerns or questions. * Initial Assessments - Karuna Lawton RN - 05/12/2017 11:13 AM EDT Office of Care Management Initial Assessment Karuna Lawton RN reviewed record and discussed patient with Care Team. Source of Information: Chart review, MD report and Patient interview Introduced self/reviewed role; services accepted. Reason for Hospitalization: Reason for Admission as Stated by Patient: [facility] Past Medical History: Diagnosis Date ??? BP (high blood pressure) ??? DVT (deep venous thrombosis) ??? Gout ??? Hypertension ??? Kidney problem ??? Pneumonia ??? TBI (traumatic brain injury) 1980 Hospitalizations Within the Past 30 Days: No Anticipated Length Of Stay (If known): Expected Length of Hospitalization: 2 Current Decision-Making Capacity: Alert and Oriented X 4 Advance Care Planning: Yes on file in EDH Current Coping/Education/Information Needs: none Current Functional Ability: SBA Functional Status Prior to Admission: independent Home Environment: Lives alone in own apartment on the first floor, has a ramp to enter. Social & Family Supports/Community Resources: Mom lives in the same apartment building. States good support system via family and friends (Aunt & Uncle are local) Behavioral Health History: denies Substance Use/Abuse: denies Other Pertinent/Service Specific Information: n/a Health/Prescription Coverage: Primary Insurance: MEDICAID [place] Secondary Insurance: N/A Prescription Coverage: Yes Preferred Pharmacy: [facility] in [facility] Other: n/a Primary Care Provider: Carroll Fuentes DO [phone] Patient/Caregiver Goals of Treatment: Go home once medically ready, need to know what is wrong withme. Potential Needs for Transition of Care: Rehab/SNF: no Home Health: no DME: no Dialysis: no Community Resources: n/a Transportation: has his own car here and plans to drive self home. Other: n/a Anticipated Barriers to Discharge/Special Considerations: none identified at this time Plan: no discharge needs noted at this time. A member of the Care Management team will continue to monitor progress, follow for continuity of care and assist with transition of care planning. Karuna Lawton RN Pager: [phone] * Plan of Care - Mayra Hernandez RN - 05/12/2017 5:00 AM EDT Problem: Patient Care Overview Goal: Plan of Care Review Outcome: Ongoing (Interventions Implemented as Appropriate) 05/12/17 0454 Coping/Psychosocial Plan Of Care Reviewed With patient Plan of Care Review Progress no change OUTCOME EVALUATION NOTE: OUTCOME SUMMARY: Pt arrived to floor from clinic. VSS on RA. Bradycardic, EKG performed, tele initiated. A&O. Off unit for chest xray. NS started at 100mL/hr. MD notified of low potassium. Pt denies pain. Pt had one large episode of emesis overnight. Bright red blood visible in emesis, predominately brown liquid. MD notified. Zofran given. Protonix initiated. Pt reports relief of nausea. Pt does endorse similar episodes of vomiting before admission. Sleeping between care. PLAN MOVING FORWARD: US Consult transplant team Monitor labs Replace K INDIVIDUALIZED FALL PREVENTION INTERVENTIONS: Patient-specific fall risk factors per assessment: [current deficits]: Altered gait, IV infusing, unfamiliar surroundings, tele, masimo Assistance [level of assistance required for transfers and ambulation]: Standby q24hrs Supervision [direct monitoring required during toileting and ADLs]: Independent, calls appropriately Surveillance [continuous indirect monitoring]: Purposeful rounding, room near unit station, bed alarm, Masimo, tele Patient-specific fall prevention interventions for sensory deficits provided, if applicable: [X] N/A CPG GOAL OUTCOME EVALUATION: documented in this encounter Plan of Treatment Scheduled Referrals Name Type Priority Associated Diagnoses Orde r Schedule Referral to Urology Outpatient Referral Routine TRISTIAN (acute kidney injury) S/P kidney transplant [...] stage 4, GFR 15-29 ml/min Prophylactic immunotherapy FPC current use of immunosuppressive drug H/O kidney transplant Ordered: 05/16/2017 documented as of this encounter Procedures Procedure Name Priority Date/Time Associated Diagnosis Comments LAB SCAN 05/17/2017 12:00 AM EST APPAREL MANAGER SCAN 05/17/2017 12:00 AM EST HEMOGRAM Routine 05/16/2017 4:56 AM EST DIFFERENTIAL, AUTOMATED Routine 05/16/20 17 4:56 AM EST PROTHROMBIN TIME Routine 05/16/2017 4:56 AM EST CBC (WITH DIFF) Routine 05/16/2017 4:56 AM EST PHOSPHORUS Routine 05/16/2017 4:56 AM EST MAGNESIUM Routine 05/16/2017 4:56 AM EST BASIC METABOLIC PANEL Routine 05/16/2017 4:56 AM EST HEMOGRAM Routine 05/15/2017 8:44 AM EDT DIFFERENTIAL, AUTOMATED Routine 05/15/20 17 8:44 AM EDT PROTHROMBIN TIME Routine 05/15/2017 8:44 AM EDT CBC (WITH DIFF) Routine 05/15/2017 8:44 AM EDT MAGNESIUM Routine 05/15/2017 8:44 AM EDT HEPATIC FUNCTION PANEL Routine 7 8:44 AM EDT BASIC METABOLIC PANEL Routine 05/15/2017 8:44 AM EDT HEMOGRAM Timed 05/14/2017 6:26 PM EDT DIFFERENTIAL, AUTOMATED Timed 05/14/20 17 6:26 PM EDT CBC (WITH DIFF) Timed 05/14/2017 6:26 PM EDT BASIC METABOLIC PANEL Timed 05/14/2017 6:26 PM EDT US RETROPERITONEAL COMPLETE Routine 05/14/2017 3:[address] CHEST, ABDOMEN, PELVIS WO CONTRAST Routine 05/14/2017 10:15 AM EDT LYME IGG & IGM ANTIBODY Routine 05/14/20 17 6:09 AM EDT HEMOGRAM Routine 05/14/2017 6:08 AM EDT DIFFERENTIAL, AUTOMATED Routine 05/14/20 17 6:08 AM EDT PROTHROMBIN TIME Routine 05/14/2017 6:08 AM EDT CBC (WITH DIFF) Routine 05/14/2017 6:08 AM EDT MAGNESIUM Routine 05/14/2017 6:08 AM EDT BASIC METABOLIC PANEL Routine 05/14/2017 6:08 AM EDT HEMOGRAM Routine 05/13/2017 8:26 PM EDT DIFFERENTIAL, AUTOMATED Routine 05/13/20 17 8:26 PM EDT TACROLIMUS LEVEL Timed 05/13/2017 8:26 PM EDT CBC (WITH DIFF) Routine 05/13/2017 8:26 PM EDT CYTOMEGALOVIRUS CULTURE Routine 05/13/20 17 6:27 PM EDT SURGICAL PATHOLOGY REPORT Routine 05/13/2017 5:55 PM EDT SPECIMEN TO PATHOLOGY Routine 05/13/2017 5:55 PM EDT EGD WITH BIOPSY (WRVU 2.39) 05/13/2017 5:27 PM EDT Hematemesis Per Abimael Esteves HEMOGRAM Routine 05/13/2017 1:44 PM EDT DIFFERENTIAL, AUTOMATED Routine 05/13/20 17 1:44 PM EDT CBC (WITH DIFF) Routine 05/13/2017 1:44 PM EDT MAGNESIUM Timed 05/13/2017 1:44 PM EDT BASIC METABOLIC PANEL Timed 05/13/2017 1:44 PM EDT HEMOGRAM Routine 05/13/2017 6:00 AM EDT DIFFERENTIAL, AUTOMATED Routine 05/13/20 17 6:00 AM EDT TACROLIMUS LEVEL Routine 05/13/2017 6:00 AM EDT CMV ANTIBODY, IGM Routine 05/13/2017 6:0 0 AM EDT CMV PCR, QUANTITATIVE Routine 05/13/2017 6:00 AM EDT CMV ANTIBODY, IGG Routine 05/13/2017 6:0 0 AM EDT PROTHROMBIN TIME Routine 05/13/2017 6:00 AM EDT CBC (WITH DIFF) Routine 05/13/2017 6:00 AM EDT MAGNESIUM Routine 05/13/2017 6:00 AM EDT BASIC METABOLIC PANEL Routine 05/13/2017 6:00 AM EDT HEMOGRAM Routine 05/12/2017 11:49 PM EDT DIFFERENTIAL, AUTOMATED Routine 05/12/20 17 11:49 PM EDT CBC (WITH DIFF) Routine 05/12/2017 11:49 PM EDT BASIC METABOLIC PANEL Timed 05/12/2017 11:49 PM EDT TRANSFUSE RED BLOOD CELLS Routine 05/12/2017 9:09 PM EDT TRANSFUSE RED BLOOD CELLS Routine 05/12/2017 5:14 PM EDT TRANSFUSE THAWED PLASMA Routine 05/12/20 4:51 PM EDT TRANSFUSE THAWED PLASMA Routine 05/12/20 3:07 PM EDT PREPARE RBC Routine 05/12/2017 2:11 PM EDT PREPARE RBC Routine 05/12/2017 2:10 PM EDT PREPARE THAWED PLASMA Routine 05/12/2017 2:05 PM EDT PROTHROMBIN TIME Timed 05/12/2017 2:02 PM EDT HEMOGRAM Timed 05/12/2017 11:56 AM EDT DIFFERENTIAL, AUTOMATED Timed 05/12/20 11:56 AM EDT CBC (WITH DIFF) Timed 05/12/2017 11:56 AM EDT MAGNESIUM Timed 05/12/2017 11:56 AM EDT BASIC METABOLIC PANEL Timed 05/12/2017 11:56 AM EDT US RENAL TRANSPLANT RIGHT Routine 05/12/2017 10:48 AM EDT ABORH RECHECK STATUS STAT 05/12/2017 8:18 AM EDT ABO/RH TYPING STAT 05/12/2017 8:18 AM EDT ANTIBODY SCREEN STAT 05/12/2017 8:18 AM EDT TYPE AND SCREEN ([facility]/CGP/GAVIN) STAT 05/12/2017 8:18 AM EDT PROTHROMBIN TIME Routine 05/12/2017 7:33 AM EDT _URINALYSIS WITH MICRSOCOPIC Routine 05/12/2017 6:20 AM EDT SODIUM, URINE, RANDOM Routine 05/12/2017 6:20 AM EDT CREATININE, URINE, RANDOM Routine 05/12/2017 6:20 AM EDT TSH CASCADE Routine 05/12/2017 6:18 AM EDT HEMOGRAM Routine 05/12/2017 6:18 AM EDT DIFFERENTIAL, AUTOMATED Routine 05/12/20 6:18 AM EDT TACROLIMUS LEVEL Routine 05/12/2017 6:18 AM EDT CBC (WITH DIFF) Routine 05/12/2017 6:18 AM EDT PREALBUMIN Routine 05/12/2017 6:18 AM EDT PHOSPHORUS Routine 05/12/2017 6:18 AM EDT HEMOGLOBIN A1C Routine 05/12/2017 6:18 AM EDT HEPATIC FUNCTION PANEL Routine 7 6:18 AM EDT BASIC METABOLIC PANEL Routine 05/12/2017 6:18 AM EDT XR CHEST PA AND LATERAL Routine 05/11/20 9:45 PM EDT EKG 12-LEAD Routine 05/11/2017 9:18 PM EDT TRISTIAN (acute kidney injury) HEMOGRAM STAT 05/11/2017 8:30 PM EDT DIFFERENTIAL, AUTOMATED STAT 05/11/20 8:30 PM EDT LACTATE, WHOLE BLOOD STAT 05/11/2017 8:30 PM EDT CBC (WITH DIFF) STAT 05/11/2017 8:30 PM EDT BASIC METABOLIC PANEL STAT 05/11/2017 8:30 PM EDT EGD, UPPER GI ENDOSCOPY (WRVU 2.09) Hematemesis Per Varghese Anes documented in this encounter Results * SCAN DOC: LAB (05/17/2017 12:00 AM EST) Narrative 05/17/2017 12:00 AM EST Ordered by an unspecified provider. Scanning Provider MEDIA MGR SCAN EXT O RDR/RSLT * SCAN DOC: APPAREL MANAGER (05/17/2017 12:00 AM EST) Anatomical Region Laterality Modality Other Narrative 05/17/2017 12:00 AM EST Ordered by an unspecified provider. Scanning Provider MEDIA MGR SCAN EXT O RDR/RSLT * (ABNORMAL) Differential, Automated (05/16/2017 4:56 AM EST) Neutrophil % 76.5 % [facility] Neutrophil Absolute 2.69 1.70 - 6.10 x10(3)/mc L [facility] Lymph % 9.9 % [facility] Lymphocytes Abs 0.4(L) 0.9 - 3.2 x10(3)/mc L [facility] Monocyte % 10.5 % [facility] Monocyte Abs 0.4 0.3 - 0.9 x10(3)/mc L [facility] Eos % 2.8 % [facility] Eosinophils Abs 0.1 0.0 - 0.4 x10(3)/mc L [facility] Basophil % 0.0 % [facility] Baso Absolute 0.0 0.0 - 0.1 x10(3)/mc L [facility] Immature Gran % 0.30 % [facility] Comment: Immature granulocytes(IG's)percentage and absolute count will include metamyelocytes, myelocytes, and promyelocytes. Blood smears from CBCs yielding IG's will be scanned manually for concordance. If this scan disagrees with the automated IG or if promyelocytes are noted, a manual differential will be performed. Immature Gran Absolute 0.01 0.00 - 0.04 x10(3)/mc L [facility] Blood specimen (specimen) 05/16/2017 4:56 AM EST 05/16/2017 5:28 AM EST Narrative Resulting Agency Comment Spec In Lab Abner Adames MD HEMATOLOGY ORDERABLE S [facility] [place] [address] * (ABNORMAL) Hemogram (05/16/2017 4:56 AM EST) White Blood Cell 3.5(L) 4.0 - 9.5 x10(3)/ L [facility] Red Blood Cell 2.79(L) 4.58 - 5.54 x10(6)/mc L [facility] Hemoglobin 8.4(L) 13.7 - 16.5 gm/dL [facility] Hematocrit 24.3(L) 40.5 - 48.5 % [facility] Mean Cell Volume 87.1 82.9 - 93.1 fL [facility] Mean Cell Hemoglobin 30.1 27.5 - 32.1 pg [facility] Mean Cell Hemoglobin Concentration 34.6 32.0 - 35.7 gm/dL [facility] Platelet 160 145 - 357 x10(3)/mc L [facility] RDW Standard Deviation 46.2(H) 36.0 - 45.0 fL [facility] RDW coefficient of variation 14.6(H) 11.4 - 13.8 % [facility] Mean Platelet Volume 9.9 7.6 - 12.9 fL [facility] NRBC% auto 0.0 % [facility] NRBC Absolute 0.000 0.000 - 0.000 x10(3)/mc L [facility] Blood specimen (specimen) 05/16/2017 4:56 AM EST 05/16/2017 5:28 AM EST Narrative Resulting Agency Comment Spec In Lab Abner Adames MD HEMATOLOGY ORDERABLE S Performing Organization Address [facility]/ZIP Co de Phone Number [facility] [place] [address] * Phosphorus (05/16/2017 4:56 AM EST) Phosphorus 2.6 2.5 - 4.5 mg/dL [facility] Blood specimen (specimen) 05/16/2017 4:56 AM EST 05/16/2017 5:28 AM EST Narrative Resulting Agency Comment Spec In Lab Abner Adames MD CHEMISTRY ORDERABLES Performing Organization Address [facility] Co de Phone Number [facility] [place] [address] * (ABNORMAL) Magnesium (05/16/2017 4:56 AM EST) Magnesium 0.58(L) 0.69 - 1.07 mmol/L [facility] Blood specimen (specimen) 05/16/2017 4:56 AM EST 05/16/2017 5:28 AM EST Narrative Resulting Agency Comment Spec In Lab Abner Adames MD CHEMISTRY ORDERABLES Performing Organization Address [facility] Co de Phone Number [facility] [place] [address] * (ABNORMAL) Basic Metabolic Panel (non-fasting) (05/16/2017 4:56 AM EST) Glucose 101 65 - 199 mg/dL [facility] LABORATORY Comment:Diabetes: >=200 mg/d L plus symptoms Blood Urea Nitrogen 32(H) 10 - 20 mg/dL [facility] Creatinine 2.20(H) 0.80 - 1.50 mg/dL [facility] Sodium 139 135 - 145 mmol/L [facility] Potassium 3.7 3.5 - 5.0 mmol/L [facility] Comment: Please note: ??Patients with WBC >100,000 may have falsely elevated Potassium levels. ??For accurate Potassium quantification in these patients send serum separator tube (gold top) for subsequent determinations. ??Contact the Clinical Chemistry Laboratory if there are any questions. Chloride 105 98 - 107 mmol/L [facility] Carbon Dioxide 20(L) 22 - 31 mmol/L [facility] Anion Gap 14 5 - 15 mmol/L [facility] Calcium 7.5(L) 8.5 - 10.5 mg/dL [facility] Est Glomerular Filtration Rate 31(L) >=60 [facility] Comment: The reported eGFR should be multiplied by 1.2 for patients. The MDRD is not an appropriate measure of renal function for patients with body mass extremes or in patients with acute kidney failure. http://[employer]/DHnkdep http://[employer] Apps/DHMCnkf Blood specimen (specimen) 05/16/2017 4:56 AM EST 05/16/2017 5:28 AM EST Narrative Resulting Agency Comment Spec In Lab Abner Adames MD CHEMISTRY ORDERABLES [facility] [place] [address] * (ABNORMAL) Prothrombin Time (05/16/2017 4:56 AM EST) Prothrombin Time 14.2(H) 11.8 - 14.0 sec [facility] International Normalization Ratio 1.1 0.9 - 1.1 [facility] Comment: An INR <2.0 [...] depending on clinical circumstances. Blood specimen (specimen) 05/16/2017 4:56 AM EST 05/16/2017 5:28 AM EST Narrative Resulting Agency Comment Spec In Lab Jesenia Dolan MD HEMATOLOGY ORDERABL ES Performing Organization Address [facility] Co de Phone Number [facility] [place] [address] * (ABNORMAL) Hepatic Function Panel (05/15/2017 8:44 AM EDT) [facility] Protein, Total 5.0(L) 6.1 - 8.0 gm/dL [facility] Albumin 3.0(L) 3.2 - 5.2 gm/dL [facility] Aspartate Aminotransferase 12 0 - 39 unit/L [facility] Alanine Aminotransferase 10 0 - 55 unit/L [facility] Alkaline Phosphatase 103 40 - 120 unit/L [facility] Bilirubin, Total 0.6 0.2 - 1.3 mg/dL [facility] Bilirubin, Direct 0.2 0.0 - 0.3 mg/dL [facility] Blood specimen (specimen) Venous Draw / Unknown 05/15/2017 8:44 AM EDT 05/15/2017 8:53 AM EDT Narrative Resulting Agency Comment Spec In Lab Jesenia Dolan MD CHEMISTRY ORDERABLE S Performing Organization Address [facility] Co de Phone Number [facility] [place] [address] * (ABNORMAL) Differential, Automated (05/15/2017 8:44 AM EDT) [facility] Neutrophil % 67.0 % [facility] Neutrophil Absolute 2.04 1.70 - 6.10 x10(3)/mc L [facility] Lymph % 15.7 % [facility] Lymphocytes Abs 0.5(L) 0.9 - 3.2 x10(3)/[facility] Monocyte % 12.1 % [facility] Monocyte Abs 0.4 0.3 - 0.9 x10(3)/[facility] Eos % 4.9 % [facility] Eosinophils Abs 0.2 0.0 - 0.4 x10(3)/[facility] Basophil % 0.0 % [facility] Baso Absolute 0.0 0.0 - 0.1 x10(3)/[facility] Immature Gran % 0.30 % [facility] Comment: Immature granulocytes(IG's)percentage and absolute count will include metamyelocytes, myelocytes, and promyelocytes. Blood smears from CBCs yielding IG's will be scanned manually for concordance. If this scan disagrees with the automated IG or if promyelocytes are noted, a manual differential will be performed. Immature Gran Absolute 0.01 0.00 - 0.04 x10(3)/[facility] Blood specimen (specimen) 05/15/2017 8:44 AM EDT 05/15/2017 8:52 AM EDT Narrative Resulting Agency Comment Spec In Lab Jesenia Dolan MD HEMATOLOGY ORDERABL ES [facility] [place] [address] * (ABNORMAL) Hemogram (05/15/2017 8:44 AM EDT) White Blood Cell 3.0(L) 4.0 - 9.5 x10(3)/[facility] Red Blood Cell 2.92(L) 4.58 - 5.54 x10(6)/[facility] Hemoglobin 8.8(L) 13.7 - 16.5 gm/dL [facility] Hematocrit 24.9(L) 40.5 - 48.5 % [facility] Mean Cell Volume 85.3 82.9 - 93.1 fL [facility] Mean Cell Hemoglobin 30.1 27.5 - 32.1 pg [facility] Mean Cell Hemoglobin Concentration 35.3 32.0 - 35.7 gm/dL [facility] Platelet 167 145 - 357 x10(3)/mc L [facility] RDW Standard Deviation 45.6(H) 36.0 - 45.0 fL [facility] RDW coefficient of variation 14.8(H) 11.4 - 13.8 % [facility] Mean Platelet Volume 9.7 7.6 - 12.9 fL [facility] NRBC% auto 0.0 % [facility] NRBC Absolute 0.000 0.000 - 0.000 x10(3)/mc L [facility] Blood specimen (specimen) 05/15/2017 8:44 AM EDT 05/15/2017 8:52 AM EDT Narrative Resulting Agency Comment Spec In Lab Jesenia Dolan MD HEMATOLOGY ORDERABL ES [facility] [place] [address] * (ABNORMAL) Prothrombin Time (05/15/2017 8:44 AM EDT) Prothrombin Time 14.7(H) 11.8 - 14.0 sec [facility] International Normalization Ratio 1.2(H) 0.9 - 1.1 [facility] Comment: An INR <2.0 [...] depending on clinical circumstances. Blood specimen (specimen) 05/15/2017 8:44 AM EDT 05/15/2017 8:52 AM EDT Narrative Resulting Agency Comment Spec In Lab Jesenia Dolan MD HEMATOLOGY ORDERABL ES Performing Organization Address City/[facility]/ZIP Co de Phone Number [facility] [place] [address] * Magnesium (05/15/2017 8:44 AM EDT) [facility] Magnesium 0.72 0.69 - 1.07 mmol/L [facility] Blood specimen (specimen) 05/15/2017 8:44 AM EDT 05/15/2017 8:52 AM EDT Narrative Resulting Agency Comment Spec In Lab Jesenia Dolan MD CHEMISTRY ORDERABLE S Performing Organization Address [facility] Co de Phone Number [facility] [place] [address] * (ABNORMAL) Basic Metabolic Panel (non-fasting) (05/15/2017 8:44 AM EDT) [facility] Glucose 120 65 - 199 mg/dL [facility] Comment:Diabetes: >=200 mg/d L plus symptoms Blood Urea Nitrogen 37(H) 10 - 20 mg/dL [facility] Creatinine 2.52(H) 0.80 - 1.50 mg/dL [facility] Sodium 140 135 - 145 mmol/L [facility] Potassium 3.6 3.5 - 5.0 mmol/L [facility] Comment: Please note: ??Patients with WBC >100,000 may have falsely elevated Potassium levels. ??For accurate Potassium quantification in these patients send serum separator tube (gold top) for subsequent determinations. ??Contact the Clinical Chemistry Laboratory if there are any questions. Chloride 108(H) 98 - 107 mmol/L [facility] Carbon Dioxide 18(L) 22 - 31 mmol/L [facility] Anion Gap 14 5 - 15 mmol/L [facility] Calcium 7.6(L) 8.5 - 10.5 mg/dL [facility] Est Glomerular Filtration Rate 27(L) >=60 [facility] Comment: The reported eGFR should be multiplied by 1.2 for patients. The MDRD is not an appropriate measure of renal function for patients with body mass extremes or in patients with acute kidney failure. http://[employer]/DHnkdep http://[employer] Apps/DHMCnkf Blood specimen (specimen) 05/15/2017 8:44 AM EDT 05/15/2017 8:52 AM EDT Narrative Resulting Agency Comment Spec In Lab Jesenia Dolan MD CHEMISTRY ORDERABLE S [facility] [place] [address] * (ABNORMAL) Differential, Automated (05/14/2017 6:26 PM EDT) Neutrophil % 63.6 % [facility] Neutrophil Absolute 1.85 1.70 - 6.10 x10(3)/mc L [facility] Lymph % 18.9 % [facility] Lymphocytes Abs 0.6(L) 0.9 - 3.2 x10(3)/mc L [facility] Monocyte % 13.1 % [facility] Monocyte Abs 0.4 0.3 - 0.9 x10(3)/mc L [facility] Eos % 3.8 % [facility] Eosinophils Abs 0.1 0.0 - 0.4 x10(3)/mc L [facility] Basophil % 0.3 % [facility] Baso Absolute 0.0 0.0 - 0.1 x10(3)/mc L [facility] Immature Gran % 0.30 % [facility] Comment: Immature granulocytes(IG's)percentage and absolute count will include metamyelocytes, myelocytes, and promyelocytes. Blood smears from CBCs yielding IG's will be scanned manually for concordance. If this scan disagrees with the automated IG or if promyelocytes are noted, a manual differential will be performed. Immature Gran Absolute 0.01 0.00 - 0.04 x10(3)/ L [facility] Blood specimen (specimen) 05/14/2017 6:26 PM EDT 05/14/2017 6:40 PM EDT Narrative Resulting Agency Comment Spec In Lab Jesenia Dolan MD HEMATOLOGY ORDERABL ES [facility] [place] [address] * (ABNORMAL) Hemogram (05/14/2017 6:26 PM EDT) White Blood Cell 2.9(L) 4.0 - 9.5 x10(3)/[facility] Red Blood Cell 2.76(L) 4.58 - 5.54 x10(6)/[facility] Hemoglobin 8.0(L) 13.7 - 16.5 gm/dL [facility] Hematocrit 23.6(L) 40.5 - 48.5 % [facility] Mean Cell Volume 85.5 82.9 - 93.1 [facility] Mean Cell Hemoglobin 29.0 27.5 - 32.1 pg [facility] Mean Cell Hemoglobin Concentration 33.9 32.0 - 35.7 gm/dL [facility] Platelet 172 145 - 357 x10(3)/[facility] RDW Standard Deviation 45.6(H) 36.0 - 45.0 [facility] RDW coefficient of variation 15.1(H) 11.4 - 13.8 % [facility] Mean Platelet Volume 10.3 7.6 - 12.9 [facility] NRBC% auto 0.0 % [facility] NRBC Absolute 0.000 0.000 - 0.000 x10(3)/[facility] Blood specimen (specimen) 05/14/2017 6:26 PM EDT 05/14/2017 6:40 PM EDT Narrative Resulting Agency Comment Spec In Lab Jesenia Dolan MD HEMATOLOGY ORDERABL ES [facility] [place] [address] * (ABNORMAL) Basic Metabolic Panel (non-fasting) (05/14/2017 6:26 PM EDT) Glucose 112 65 - 199 mg/dL [facility] Comment:Diabetes: >=200 mg/d L plus symptoms Blood Urea Nitrogen 44(H) 10 - 20 mg/dL [facility] Creatinine 2.70(H) 0.80 - 1.50 mg/dL [facility] Sodium 139 135 - 145 mmol/L [facility] Potassium 3.3(L) 3.5 - 5.0 mmol/L [facility] Comment: Please note: ??Patients with WBC >100,000 may have falsely elevated Potassium levels. ??For accurate Potassium quantification in these patients send serum separator tube (gold top) for subsequent determinations. ??Contact the Clinical Chemistry Laboratory if there are any questions. Chloride 109(H) 98 - 107 mmol/L [facility] Carbon Dioxide 17(L) 22 - 31 mmol/L [facility] Anion Gap 13 5 - 15 mmol/L [facility] Calcium 7.4(L) 8.5 - 10.5 mg/dL [facility] Est Glomerular Filtration Rate 25(L) >=60 [facility] Comment: The reported eGFR should be multiplied by 1.2 for patients. The MDRD is not an appropriate measure of renal function for patients with body mass extremes or in patients with acute kidney failure. http://[employer]iable/DHnkdep http://[employer]/DHMCnkf Blood specimen (specimen) 05/14/2017 6:26 PM EDT 05/14/2017 6:40 PM EDT Narrative Resulting Agency Comment Spec In Lab Jesenia Dolan MD CHEMISTRY ORDERABLE S [facility] [place] [address] * US Retroperitoneal Complete (05/14/2017 3:35 PM EDT) Anatomical Region Laterality Modality Abdomen Ultrasound 05/14/2017 3:31 PM EDT Impressions 05/14/2017 4:51 PM EDT ??Echogenic atrophic flandreau kidneys. Peripheral to a 2.5 cm left renal cyst are dual heterogeneous solid renal massesone of which shows trace peripheral flow in one of its shows small central flow.These are concerning for malignancy. ?Devi Hdez MD Electronically Signed Final Report ?? 05/14/2017 04:51 pm Narrative 05/14/2017 4:51 PM EDT Renal ? (Signed Final 05/14/2017 04:51 pm) PATIENT INFO: ID #: ? [id number] ?: ??[birth year] (56 yrs) Name: ? CHRISTY AMBROSE ?Visit Date: 05/14/2017 03:31 pm PERFORMED BY: Performed By: ? Brianna Becker RDMS Attending: ?Lemuel JONES, Devi Adams Referred By: ?JESENIA DOLAN Location: ? [place] SERVICE(S) PROVIDED: ??URETRO - Retroperitoneal Complete - [id number] ? [id number] INDICATIONS: ??Evaluate L renal mass, ? malignancy RIGHT KIDNEY: Size (cm) ?L: ??6.8 Cortical Thickness: ?Cortical thinning Cortical Echogenicity: ?? Echogenic Hydronephrosis: ?No sonographic evidence LEFT KIDNEY: Size (cm) ?L: ??9.7 Cortical Thickness: ?Cortical thinning Cortical Echogenicity: ?? Echogenic Hydronephrosis: ?No sonographic evidence -------- Lesions: -------- ??# ?Date ?Location ? Description ? L ? AP ? TV (cm) ??1 ?05/14/17 ?Superior ? Solid ?3.3 ?4.4 ?4.2 ??2 ?05/14/17 ?Mid ?Solid ?4.6 ?4.4 ?4.9 Comment: ?Simple cyst measuring 2.5 cm URINARY BLADDER: Pre-void (cm) ? L: ??9.2 ? AP: ??9.3 ? TV: ??9.2 Vol (ml): ?412.2 Comment: ?Partially distended, normal contour Procedure Note Devi Hdez MD - 05/14/2017 Renal (Signed Final 05/14/2017 04:51 pm) PATIENT INFO: ID #: [id number] : 62 (56 yrs) Name: CHRISTY AMBROSE Visit Date: 05/14/2017 03:31 pm PERFORMED BY: Performed By: Brianna Becker RDMS Attending: Devi Hdez MD Referred By: JESENIA DOLAN Location: [facility] SERVICE(S) PROVIDED: URETRO - Retroperitoneal Complete - [id number] INDICATIONS: Evaluate L renal mass, ? malignancy RIGHT KIDNEY: Size (cm) L: 6.8 Cortical Thickness: Cortical thinning Cortical Echogenicity: Echogenic Hydronephrosis: No sonographic evidence LEFT KIDNEY: Size (cm) L: 9.7 Cortical Thickness: Cortical thinning Cortical Echogenicity: Echogenic Hydronephrosis: No sonographic evidence -------- Lesions: -------- # Date Location Description L AP TV (cm) 1 05/14/17 Superior Solid 3.3 4.4 4.2 2 05/14/17 Mid Solid 4.6 4.4 4.9 Comment: Simple cyst measuring 2.5 cm URINARY BLADDER: Pre-void (cm) L: 9.2 AP: 9.3 TV: 9.2 Vol (ml): 412.2 Comment: Partially distended, normal contour IMPRESSION Echogenic atrophic flandreau kidneys. Peripheral to a 2.5 cm left renal cyst are dual heterogeneous solid renal massesone of which shows trace peripheral flow in one of its shows small central flow.These are concerning for malignancy. Devi Hdez MD Electronically Signed Final Report 05/14/2017 04:51 pm Jesenia Dolan MD IMG US GEN ORDERABL ES * CT Chest Abdomen Pelvis wo Contrast (05/14/2017 10:15 AM EDT) Anatomical Region Laterality Modality Abdomen, Pelvis Computed Tomogra phy Impressions 05/14/2017 11:23 AM EDT 1. ??There are three left renal lesions, the larger two appear solid ??and measure up to 5.2 cm in diameter. They are suspicious for either a primary renal tumor such as renal cell carcinoma however metastasis could also be considered. The smaller lesions has a more cystic appearance. Recommend ultrasound for further evaluation to confirm vascularity within the solid lesions given the limitations of this nonenhanced study. 2. ??Degenerative arthropathy at the right sternoclavicular joint corresponds to opacity seen on recent chest radiograph. 3. ??No evidence of metastatic disease however exam is limited given the absence of intravenous contrast. 4. ??Trace bilateral pleural fluid. I have personally reviewed the image(s) and the residents interpretation and agree with the findings, Walt Lin at 05/14/2017 11:23 AM Narrative 05/14/2017 11:23 AM EDT EXAMINATION: CT CHEST ABDOMEN PELVIS WO CONTRAST CLINICAL HISTORY: eval for malignancy though cannot use contrast in setting of TRISTIAN/CKD; significant weight loss; opacity noted over R 1st rib costochondral joint on chest XR; TECHNIQUE: Helical CT of the chest, abdomen and pelvis was performed without intravenous contrast. Oral contrast was administered.. COMPARISON: Renal ultrasound 05/12/2017, chest radiograph 05/10/2017, neck CT 12/03/2015 FINDINGS: The absence of intravenous contrast limits the evaluation of solid viscera and vasculature. Chest: Lungs and large airways: Dependent atelectasis noted bilaterally. Mild bronchiectasis and bronchial wall thickening. Pleura: Trace bilateral pleural fluid. Heart/vasculature: Trace pericardial effusion. Heart is borderline large. The ascending aorta is ectatic measuring 4.5 cm at the level of the main pulmonary artery. There is conventional three-vessel arch anatomy. Lymph nodes/Mediastinum/Janeth: Normal. Abdomen/pelvis: Liver: The liver is borderline large measuring 20 cm in craniocaudal dimension the coronal plane. This however could be due to normal variant Argenis lobe. Bile ducts: Nondilated. Gallbladder: No calcified gallstones. Normal caliber wall. Pancreas: Normal attenuation without ductal dilatation. Spleen: Normal. Adrenals: Normal. Kidneys: The flandreau kidneys are severely atrophied. There are 3 well-circumscribed lesions projecting from the upper pole of the flandreau left kidney. The smallest measures 2.0 cm [...] normal unenhanced appearance. No hydronephrosis or nephrolithiasis. Vasculature: No aneurysm. Lymph Nodes: ??There are scattered nonpathologically enlarged but prominent lymph nodes in the mesentery. Bowel: Nondilated, no wall thickening. ?? Peritoneum and mesentery: No ascites, free air, or loculated fluid collection. No mesenteric inflammation. Abdominal wall: Normal. Urinary Bladder: Normal. Reproductive organs: The prostate is enlarged. Osseous structures: Opacity seen on the recent chest radiograph corresponds to large degenerative osteophyte formation at the right sternoclavicular joint. No suspicious osseous lesion. Procedure Note Walt Lin MD - 05/14/2017 EXAMINATION: CT CHEST ABDOMEN PELVIS WO CONTRAST CLINICAL HISTORY: eval for malignancy though cannot use contrast insetting of TRISTIAN/CKD; significant weight loss; opacity noted over R 1st ribcostochondral joint on chest XR; TECHNIQUE: Helical CT of the chest, abdomen and pelvis was performedwithout intravenous contrast. Oral contrast was administered.. COMPARISON: Renal ultrasound 05/12/2017, chest radiograph 05/10/2017, neckCT 12/03/2015 FINDINGS: The absence of intravenous contrast limits the evaluation of solid visceraand vasculature. Chest: Lungs and large airways: Dependent atelectasis noted bilaterally. Mild bronchiectasis and bronchial wall thickening. Pleura: Trace bilateral pleural fluid. Heart/vasculature: Trace pericardial effusion. Heart is borderline large.The ascending aorta is ectatic measuring 4.5 cm at the level of the mainpulmonary artery. There is conventional three-vessel arch anatomy. Lymph nodes/Mediastinum/Janeth: Normal. Abdomen/pelvis: Liver: The liver is borderline large measuring 20 cm in craniocaudaldimension the coronal plane. This however could be due to normal variant Riedellobe. Bile ducts: Nondilated. Gallbladder: No calcified gallstones. Normal caliber wall. Pancreas: Normal attenuation without ductal dilatation. Spleen: Normal. Adrenals: Normal. Kidneys: The flandreau kidneys are severely atrophied. There are 3 well-circumscribed lesions projecting from the upper pole of the nativeleft kidney. The smallest measures 2.0 cm and measures fluid attenuation. Thereis a coarse peripheral calcification. The remaining 2 lesions are heterogeneoussoft tissue density with a focus of fat or fluid centrally in the moreinferior lesion. They measure 5.0-5.2 cm respectively. These larger renal lesionsdo not appear to invade nearby structures. No hydronephrosis or nephrolithiasis.The right pelvic transplant kidney demonstrates a normal unenhancedappearance. No hydronephrosis or nephrolithiasis. Vasculature: No aneurysm. Lymph Nodes: There are scattered nonpathologically enlarged but prominentlymph nodes in the mesentery. Bowel: Nondilated, no wall thickening. Peritoneum and mesentery: No ascites, free air, or loculated fluidcollection. No mesenteric inflammation. Abdominal wall: Normal. Urinary Bladder: Normal. Reproductive organs: The prostate is enlarged. Osseous structures: Opacity seen on the recent chest radiographcorresponds to large degenerative osteophyte formation at the right sternoclavicularjoint. No suspicious osseous lesion. IMPRESSION 1. There are three left renal lesions, the larger two appear solid andmeasure up to 5.2 cm in diameter. They are suspicious for either a primary renaltumor such as renal cell carcinoma however metastasis could also be considered.The smaller lesions has a more cystic appearance. Recommend ultrasound forfurther evaluation to confirm vascularity within the solid lesions given thelimitations of this nonenhanced study. 2. Degenerative arthropathy at the right sternoclavicular jointcorresponds to opacity seen on recent chest radiograph. 3. No evidence of metastatic disease however exam is limited given theabsence of intravenous contrast. 4. Trace bilateral pleural fluid. I have personally reviewed the image(s) and the residents interpretationand agree with the findings, Walt Lin at 05/14/2017 11:23 AM 11:23 AM Jesenia Dolan MD IMG CT ORDERABLES * Lyme IgG & IgM Antibody (05/14/2017 6:09 AM EDT) Lyme Antibody Neg Neg [facility] Blood specimen (specimen) 05/14/2017 6:09 AM EDT 05/15/2017 12:19 PM EDT Narrative Resulting Agency Comment Spec In Lab Jesenia Dolan MD IMMUNOLOGY ORDERABL ES [facility] [place] [address] * (ABNORMAL) Magnesium (05/14/2017 6:08 AM EDT) Magnesium 0.65(L) 0.69 - 1.07 mmol/L [facility] Blood specimen (specimen) Venous Draw / Unknown 05/14/2017 6:08 AM EDT 05/14/2017 6:39 AM EDT Narrative Resulting Agency Comment Spec In Lab Jesenia Dolan MD CHEMISTRY ORDERABLE S [facility] [place] [address] * (ABNORMAL) Differential, Automated (05/14/2017 6:08 AM EDT) Neutrophil % 66.5 % [facility] Neutrophil Absolute 2.20 1.70 - 6.10 x10(3)/mc L [facility] Lymph % 15.1 % [facility] Lymphocytes Abs 0.5(L) 0.9 - 3.2 x10(3)/mc L [facility] Monocyte % 14.5 % [facility] Monocyte Abs 0.5 0.3 - 0.9 x10(3)/ L [facility] Eos % 3.3 % [facility] Eosinophils Abs 0.1 0.0 - 0.4 x10(3)/ L [facility] Basophil % 0.3 % [facility] Baso Absolute 0.0 0.0 - 0.1 x10(3)/mc L [facility] Immature Gran % 0.30 % [facility] Comment: Immature granulocytes(IG's)percentage and absolute count will include metamyelocytes, myelocytes, and promyelocytes. Blood smears from CBCs yielding IG's will be scanned manually for concordance. If this scan disagrees with the automated IG or if promyelocytes are noted, a manual differential will be performed. Immature Gran Absolute 0.01 0.00 - 0.04 x10(3)/mc L [facility] Blood specimen (specimen) 05/14/2017 6:08 AM EDT 05/14/2017 6:36 AM EDT Narrative Resulting Agency Comment Spec In Lab Jesenia Dolan MD HEMATOLOGY ORDERABL ES Performing Organization Address City/[facility]/ZIP Co de Phone Number [facility] [place] [address] * (ABNORMAL) Hemogram (05/14/2017 6:08 AM EDT) White Blood Cell 3.3(L) 4.0 - 9.5 x10(3)/ L [facility] Red Blood Cell 2.74(L) 4.58 - 5.54 x10(6)/mc L [facility] Hemoglobin 8.2(L) 13.7 - 16.5 gm/dL [facility] Hematocrit 23.2(L) 40.5 - 48.5 % [facility] Mean Cell Volume 84.7 82.9 - 93.1 fL [facility] Mean Cell Hemoglobin 29.9 27.5 - 32.1 pg [facility] Mean Cell Hemoglobin Concentration 35.3 32.0 - 35.7 gm/dL [facility] Platelet 158 145 - 357 x10(3)/mc L [facility] RDW Standard Deviation 45.8(H) 36.0 - 45.0 fL [facility] RDW coefficient of variation 15.0(H) 11.4 - 13.8 % [facility] Mean Platelet Volume 9.9 7.6 - 12.9 fL [facility] NRBC% auto 0.0 % [facility] NRBC Absolute 0.000 0.000 - 0.000 x10(3)/ L [facility] Blood specimen (specimen) 05/14/2017 6:08 AM EDT 05/14/2017 6:36 AM EDT Narrative Resulting Agency Comment Spec In Lab Jesenia Dolan MD HEMATOLOGY ORDERABL ES Performing Organization Address City/[facility]/ZIP Co de Phone Number [facility] [place] [address] * (ABNORMAL) Prothrombin Time (05/14/2017 6:08 AM EDT) Prothrombin Time 16.1(H) 11.8 - 14.0 sec [facility] International Normalization Ratio 1.3(H) 0.9 - 1.1 [facility] Comment: An INR <2.0 [...] depending on clinical circumstances. Blood specimen (specimen) 05/14/2017 6:08 AM EDT 05/14/2017 6:36 AM EDT Narrative Resulting Agency Comment Spec In Lab Jesenia Dolan MD HEMATOLOGY ORDERABL ES [facility] [place] [address] * (ABNORMAL) Basic Metabolic Panel (non-fasting) (05/14/2017 6:08 AM EDT) Glucose 123 65 - 199 mg/dL [facility] Comment:Diabetes: >=200 mg/d L plus symptoms Blood Urea Nitrogen 54(H) 10 - 20 mg/dL [facility] Creatinine 3.14(H) 0.80 - 1.50 mg/dL [facility] Sodium 143 135 - 145 mmol/L [facility] Potassium 2.9(Criti constance) 3.5 - 5.0 mmol/L [facility] Comment: Results rechecked. Called by: WILLIAM, Read back by: Selma Torres, Date/Time:05/14/17 07:39. Please note: ??Patients with WBC >100,000 may have falsely elevated Potassium levels. ??For accurate Potassium quantification in these patients send serum separator tube (gold top) for subsequent determinations. ??Contact the Clinical Chemistry Laboratory if there are any questions. Chloride 110(H) 98 - 107 mmol/L [facility] Carbon Dioxide 17(L) 22 - 31 mmol/L [facility] Anion Gap 16(H) 5 - 15 mmol/L [facility] Calcium 7.4(L) 8.5 - 10.5 mg/dL [facility] Est Glomerular Filtration Rate 21(L) >=60 [facility] Comment: The reported eGFR should be multiplied by 1.2 for patients. The MDRD is not an appropriate measure of renal function for patients with body mass extremes or in patients with acute kidney failure. http://[employer]/DHnkdep http://[employer]/DHMCnkf Blood specimen (specimen) 05/14/2017 6:08 AM EDT 05/14/2017 6:36 AM EDT Narrative Resulting Agency Comment Spec In Lab Jesenia Dolan MD CHEMISTRY ORDERABLE S Performing Organization Address City/State/[facility] Co de Phone Number [facility] [place] [address] * (ABNORMAL) Differential, Automated (05/13/2017 8:26 PM EDT) Neutrophil % 72.2 % [facility] Neutrophil Absolute 2.57 1.70 - 6.10 x10(3)/mc L [facility] Lymph % 11.2 % [facility] Lymphocytes Abs 0.4(L) 0.9 - 3.2 x10(3)/mc L [facility] Monocyte % 14.6 % [facility] Monocyte Abs 0.5 0.3 - 0.9 x10(3)/mc L [facility] Eos % 1.4 % [facility] Eosinophils Abs 0.0 0.0 - 0.4 x10(3)/mc L [facility] Basophil % 0.3 % [facility] Baso Absolute 0.0 0.0 - 0.1 x10(3)/mc L [facility] Immature Gran % 0.30 % [facility] Comment: Immature granulocytes(IG's)percentage and absolute count will include metamyelocytes, myelocytes, and promyelocytes. Blood smears from CBCs yielding IG's will be scanned manually for concordance. If this scan disagrees with the automated IG or if promyelocytes are noted, a manual differential will be performed. Immature Gran Absolute 0.01 0.00 - 0.04 x10(3)/mc L [facility] Blood specimen (specimen) 05/13/2017 8:26 PM EDT 05/13/2017 8:35 PM EDT Narrative Resulting Agency Comment Spec In Lab Jesenia Dolan MD HEMATOLOGY ORDERABL ES [facility] [place] [address] * (ABNORMAL) Hemogram (05/13/2017 8:26 PM EDT) White Blood Cell 3.6(L) 4.0 - 9.5 x10(3)/ L [facility] Red Blood Cell 3.01(L) 4.58 - 5.54 x10(6)/mc L [facility] Hemoglobin 8.9(L) 13.7 - 16.5 gm/dL [facility] Hematocrit 25.7(L) 40.5 - 48.5 % [facility] Mean Cell Volume 85.4 82.9 - 93.1 fL [facility] Mean Cell Hemoglobin 29.6 27.5 - 32.1 pg [facility] Mean Cell Hemoglobin Concentration 34.6 32.0 - 35.7 gm/dL [facility] Platelet 168 145 - 357 x10(3)/ L [facility] RDW Standard Deviation 47.4(H) 36.0 - 45.0 fL [facility] RDW coefficient of variation 15.3(H) 11.4 - 13.8 % [facility] Mean Platelet Volume 9.9 7.6 - 12.9 fL [facility] NRBC% auto 0.0 % [facility] NRBC Absolute 0.000 0.000 - 0.000 x10(3)/mc L [facility] Blood specimen (specimen) 05/13/2017 8:26 PM EDT 05/13/2017 8:35 PM EDT Narrative Resulting Agency Comment Spec In Lab Jesenia Dolan MD HEMATOLOGY ORDERABL ES Performing Organization Address [facility] de Phone Number [facility] [place] [address] * Tacrolimus level (05/13/2017 8:26 PM EDT) Tacrolimus <3.0 ng/mL [facility] Comment: Trough therapeutic: ??5-15 ng/mL Performed by ultra-performance liquid chromatography tandem mass spectrometry (UPLCMS/MS). This test was developed and its performance characteristics determined by [facility]. It has not been cleared or approved by the FDA. The laboratory is regulated under CLIA as qualified to perform high-complexity testing. This test is used for clinical purposes. It should not be regarded as investigational or for research. Blood specimen (specimen) 05/13/2017 8:26 PM EDT 05/14/2017 7:39 AM EDT Narrative Resulting Agency Comment Spec In Lab Jesenia Dolan MD CHEMISTRY ORDERABLE S Performing Organization Address [facility] Co de Phone Number [facility] [place] [address] * Cytomegalovirus Culture Esophagus (05/13/2017 6:27 PM EDT) Cytomegalovirus Culture No Cytomegalovirus isolated in cell culture [facility] Specimen from esophagus (specimen) 05/13/2017 6:27 PM EDT 05/13/2017 7:16 PM EDT Comment:EGD ESOPHAGEAL BIOPS IES, HX OF IMMUNOSUPPRESSION Narrative Resulting Agency Comment Spec In Lab Aditya Barrera MD MICROBIOLOGY - GENER AL ORDERABLES Performing Organization Address [facility] Co de Phone Number [facility] [place] [address] * Surgical Pathology Report (05/13/2017 5:55 PM EDT) Final Diagnosis [id number] ? Location: 3EST; 0330; A The signing pathologist has (i) examined the relevant preparation(s) for the specimen(s) and (ii) rendered or confirmed the diagnosis(es). . ?Surgical Pathology DIAGNOSIS Esophagus, ??biopsy: Reactive esophageal-gastric junctional mucosa ?with intestinal metaplasia ??(negative for dysplasia) and fibrinopurulent debris containing scattered bacteria. See discussion #1. Electronically signed by: ??Kristine JONES PhD, Edgar Chacko Verified: ??05/18/2017 ?Pathologist Performed at: ??-[facility] Dept. of Pathology, [place], [place] DISCUSSION 1. The findings are consistent with mckenna ?? 's esophagus in the proper clinical context. ??Special stain for fungi (GMS) is negative. CLINICAL INFORMATION Specimen Submitted: A - Biopsy esophagus Clinical History: v SPECIMEN PROCESSING A - Labeled/Fixative: Biopsy esophagus, formalin. Quantity/Size: Fragments, 0.3-0.4 cm. Tissue Description: Soft, smith-pink tissue. Sections/Processin g: (T1) ??pps 05/18/2017 2:39 PM EST [facility] GI Biopsy 05/13/2017 5:55 PM EDT 05/13/2017 5:55 PM EDT Aditya Barrera MD PATHOLOGY/CYTOLOGY O RDERABLES Performing Organization Address [facility]/ZIP Co de Phone Number [facility] [place] [address] * Specimen to Pathology (surgical or derm) (05/13/2017 5:55 PM EDT) AP Specimen 05/13/2017 5:55 PM EDT 05/13/2017 5:55 PM EDT Narrative [facility] - 05/13/2017 5:55 PM EDT Specimen requisition ordered. ??Separate Pathology report to follow Jesenia Dolan MD PATHOLOGY/CYTOLOGY ORDERABLES Performing Organization Address City/[facility]/[place] [address] * (ABNORMAL) Magnesium (05/13/2017 1:44 PM EDT) [facility] Magnesium 0.59(L) 0.69 - 1.07 mmol/L [facility] Blood specimen (specimen) Venous Draw / Unknown 05/13/2017 1:44 PM EDT 05/13/2017 2:13 PM EDT Narrative Resulting Agency Comment Spec In Lab Jesenia Dolan MD CHEMISTRY ORDERABLE S Performing Organization Address [facility]/[place] [address] * (ABNORMAL) Differential, Automated (05/13/2017 1:44 PM EDT) [facility] Neutrophil % 67.5 % [facility] Neutrophil Absolute 2.07 1.70 - 6.10 x10(3)/mc L [facility] Lymph % 15.0 % [facility] Lymphocytes Abs 0.5(L) 0.9 - 3.2 x10(3)/mc L [facility] Monocyte % 15.3 % [facility] Monocyte Abs 0.5 0.3 - 0.9 x10(3)/mc L [facility] Eos % 1.6 % [facility] Eosinophils Abs 0.0 0.0 - 0.4 x10(3)/mc L [facility] Basophil % 0.3 % [facility] Baso Absolute 0.0 0.0 - 0.1 x10(3)/[facility] Immature Gran % 0.30 % [facility] Comment: Immature granulocytes(IG's)percentage and absolute count will include metamyelocytes, myelocytes, and promyelocytes. Blood smears from CBCs yielding IG's will be scanned manually for concordance. If this scan disagrees with the automated IG or if promyelocytes are noted, a manual differential will be performed. Immature Gran Absolute 0.01 0.00 - 0.04 x10(3)/[facility] Blood specimen (specimen) 05/13/2017 1:44 PM EDT 05/13/2017 1:56 PM EDT Narrative Resulting Agency Comment Spec In Lab Jesenia Dolan MD HEMATOLOGY ORDERABL ES Performing Organization Address City/State/[facility] Co de Phone Number [facility] [place] [address] * (ABNORMAL) Hemogram (05/13/2017 1:44 PM EDT) White Blood Cell 3.1(L) 4.0 - 9.5 x10(3)/[facility] Red Blood Cell 2.83(L) 4.58 - 5.54 x10(6)/[facility] Hemoglobin 8.3(L) 13.7 - 16.5 gm/dL [facility] Hematocrit 24.2(L) 40.5 - 48.5 % [facility] Mean Cell Volume 85.5 82.9 - 93.1 fL [facility] Mean Cell Hemoglobin 29.3 27.5 - 32.1 pg [facility] Mean Cell Hemoglobin Concentration 34.3 32.0 - 35.7 gm/dL [facility] Platelet 165 145 - 357 x10(3)/[facility] RDW Standard Deviation 46.0(H) 36.0 - 45.0 fL [facility] RDW coefficient of variation 14.8(H) 11.4 - 13.8 % [facility] Mean Platelet Volume 9.6 7.6 - 12.9 fL [facility] NRBC% auto 0.0 % [facility] NRBC Absolute 0.000 0.000 - 0.000 x10(3)/mc L [facility] Blood specimen (specimen) 05/13/2017 1:44 PM EDT 05/13/2017 1:56 PM EDT Narrative Resulting Agency Comment Spec In Lab Jesenia Dolan MD HEMATOLOGY ORDERABL ES [facility] [place] [address] * (ABNORMAL) Basic Metabolic Panel (non-fasting) (05/13/2017 1:44 PM EDT) Glucose 117 65 - 199 mg/dL [facility] Comment:Diabetes: >=200 mg/d L plus symptoms Blood Urea Nitrogen 64(H) 10 - 20 mg/dL [facility] Creatinine 3.56(H) 0.80 - 1.50 mg/dL [facility] Sodium 145 135 - 145 mmol/L [facility] Potassium 3.5 3.5 - 5.0 mmol/L [facility] Comment: Please note: ??Patients with WBC >100,000 may have falsely elevated Potassium levels. ??For accurate Potassium quantification in these patients send serum separator tube (gold top) for subsequent determinations. ??Contact the Clinical Chemistry Laboratory if there are any questions. Chloride 115(H) 98 - 107 mmol/L [facility] Carbon Dioxide 15(L) 22 - 31 mmol/L [facility] Anion Gap 15 5 - 15 mmol/L [facility] Calcium 7.9(L) 8.5 - 10.5 mg/dL [facility] Est Glomerular Filtration Rate 18(L) >=60 [facility] Comment: The reported eGFR should be multiplied by 1.2 for patients. The MDRD is not an appropriate measure of renal function for patients with body mass extremes or in patients with acute kidney failure. http://[employer]/DHnkdep http://[employer]/DHMCnkf Blood specimen (specimen) 05/13/2017 1:44 PM EDT 05/13/2017 1:56 PM EDT Narrative Resulting Agency Comment Spec In Lab Jesenia Dolan MD CHEMISTRY ORDERABLE S Performing Organization Address [facility] Co de Phone Number [facility] [place] [address] * Tacrolimus level (05/13/2017 6:00 AM EDT) Tacrolimus <3.0 ng/mL [facility] Comment: Trough therapeutic: ??5-15 ng/mL Performed by ultra-performance liquid chromatography tandem mass spectrometry (UPLCMS/MS). This test was developed and its performance characteristics determined by [facility]. It has not been cleared or approved by the FDA. The laboratory is regulated under CLIA as qualified to perform high-complexity testing. This test is used for clinical purposes. It should not be regarded as investigational or for research. Blood specimen (specimen) Venous Draw / Unknown 05/13/2017 6:00 AM EDT 05/13/2017 10:24 AM EDT Narrative Resulting Agency Comment Spec In Lab Jesenia Dolan MD CHEMISTRY ORDERABLE S Performing Organization Address [facility] Co de Phone Number [facility] [place] [address] * (ABNORMAL) Magnesium (05/13/2017 6:00 AM EDT) Magnesium 0.65(L) 0.69 - 1.07 mmol/L [facility] Blood specimen (specimen) Venous Draw / Unknown 05/13/2017 6:00 AM EDT 05/13/2017 7:09 AM EDT Narrative Resulting Agency Comment Spec In Lab Jesenia Dolan MD CHEMISTRY ORDERABLE S Performing Organization Address City/State/[facility] Co de Phone Number [facility] [place] [address] * (ABNORMAL) Differential, Automated (05/13/2017 6:00 AM EDT) Neutrophil % 59.7 % [facility] Neutrophil Absolute 1.73 1.70 - 6.10 x10(3)/mc L [facility] Lymph % 19.7 % [facility] Lymphocytes Abs 0.6(L) 0.9 - 3.2 x10(3)/mc L [facility] Monocyte % 16.6 % [facility] Monocyte Abs 0.5 0.3 - 0.9 x10(3)/mc L [facility] Eos % 3.4 % [facility] Eosinophils Abs 0.1 0.0 - 0.4 x10(3)/mc L [facility] Basophil % 0.3 % [facility] Baso Absolute 0.0 0.0 - 0.1 x10(3)/mc L [facility] Immature Gran % 0.30 % [facility] Comment: Immature granulocytes(IG's)percentage and absolute count will include metamyelocytes, myelocytes, and promyelocytes. Blood smears from CBCs yielding IG's will be scanned manually for concordance. If this scan disagrees with the automated IG or if promyelocytes are noted, a manual differential will be performed. Immature Gran Absolute 0.01 0.00 - 0.04 x10(3)/mc L [facility] Blood specimen (specimen) 05/13/2017 6:00 AM EDT 05/13/2017 6:20 AM EDT Narrative Resulting Agency Comment Spec In Lab Jesenia Dolan MD HEMATOLOGY ORDERABL ES Performing Organization Address City/[facility]/ZIP Co de Phone Number [facility] [place] [address] * (ABNORMAL) Hemogram (05/13/2017 6:00 AM EDT) White Blood Cell 2.9(L) 4.0 - 9.5 x10(3)/ L [facility] Red Blood Cell 2.76(L) 4.58 - 5.54 x10(6)/ L [facility] Hemoglobin 8.2(L) 13.7 - 16.5 gm/dL [facility] Hematocrit 23.3(L) 40.5 - 48.5 % [facility] Mean Cell Volume 84.4 82.9 - 93.1 fL [facility] Mean Cell Hemoglobin 29.7 27.5 - 32.1 pg [facility] Mean Cell Hemoglobin Concentration 35.2 32.0 - 35.7 gm/dL [facility] Platelet 179 145 - 357 x10(3)/ L [facility] RDW Standard Deviation 45.3(H) 36.0 - 45.0 fL [facility] RDW coefficient of variation 15.0(H) 11.4 - 13.8 % [facility] Mean Platelet Volume 10.1 7.6 - 12.9 fL [facility] NRBC% auto 0.0 % [facility] NRBC Absolute 0.000 0.000 - 0.000 x10(3)/ L [facility] Blood specimen (specimen) 05/13/2017 6:00 AM EDT 05/13/2017 6:20 AM EDT Narrative Resulting Agency Comment Spec In Lab Jesenia Dolan MD HEMATOLOGY ORDERABL ES Performing Organization Address City/[facility]/ZIP Co de Phone Number [facility] [place] [address] * CMV Antibody, IgM (05/13/2017 6:00 AM EDT) CMV IgM Negative Negative [facility] Blood specimen (specimen) 05/13/2017 6:00 AM EDT 05/13/2017 6:19 AM EDT Narrative Resulting Agency Comment Spec In Lab Anup Hawkins MD IMMUNOLOGY ORDERA BLES Performing Organization Address [facility] Co de Phone Number [facility] [place] [address] * CMV Antibody, IgG (05/13/2017 6:00 AM EDT) CMV IgG Negative Negative [facility] Blood specimen (specimen) 05/13/2017 6:00 AM EDT 05/13/2017 6:19 AM EDT Narrative Resulting Agency Comment Spec In Lab Anup Hawkins MD IMMUNOLOGY ORDERA BLES Performing Organization Address [facility] de Phone Number [facility] [place] [address] * (ABNORMAL) Prothrombin Time (05/13/2017 6:00 AM EDT) Prothrombin Time 17.9(H) 11.8 - 14.0 sec [facility] Comment: An INR <2.0 [...] may be appropriate depending on clinical circumstances. International Normalization Ratio 1.5(H) 0.9 - 1.1 [facility] Blood specimen (specimen) 05/13/2017 6:00 AM EDT 05/13/2017 6:19 AM EDT Narrative Resulting Agency Comment Spec In Lab Jesenia Dolan MD HEMATOLOGY ORDERABL ES Performing Organization Address [facility] Co de Phone Number [facility] [place] [address] * CMV PCR, Quantitative (05/13/2017 6:00 AM EDT) CMV Quant (Numeric) <137 IU/mL [facility] CMV Quant (Interp) Result: Not Detected Sample: plasma Method: This quantitative real-time PCR assay was performed in the [facility] Molecular Pathology Laboratory using ??CHIN[employer]Y?? AmpliPrep/CHINMAY? ? TaqMan?? CMV Test ([employer] Linear Range: 137 IU/mL - 9,100,000 IU/mL (2.14 log ? 6.96 log IU/mL) Limit of Detection: 91 IU/mL (1.96 log IU/mL) [facility] Blood specimen (specimen) 05/13/2017 6:00 AM EDT 05/14/2017 12:12 PM EDT Narrative Resulting Agency Comment Spec In Lab Anup Hawkins MD MOLECULAR ORDERAB LES [facility] [place] [address] * (ABNORMAL) Basic Metabolic Panel (non-fasting) (05/13/2017 6:00 AM EDT) Pathologist [facility] Glucose 102 65 - 199 mg/dL [facility] Comment:Diabetes: >=200 mg/d L plus symptoms Blood Urea Nitrogen 67(H) 10 - 20 mg/dL [facility] Creatinine 3.87(H) 0.80 - 1.50 mg/dL [facility] Sodium 147(H) 135 - 145 mmol/L [facility] Potassium 3.5 3.5 - 5.0 mmol/L [facility] Comment: Please note: ??Patients with WBC >100,000 may have falsely elevated Potassium levels. ??For accurate Potassium quantification in these patients send serum separator tube (gold top) for subsequent determinations. ??Contact the Clinical Chemistry Laboratory if there are any questions. Chloride 116(H) 98 - 107 mmol/L [facility] Carbon Dioxide 15(L) 22 - 31 mmol/L [facility] Anion Gap 16(H) 5 - 15 mmol/L [facility] Calcium 7.5(L) 8.5 - 10.5 mg/dL [facility] Est Glomerular Filtration Rate 16(L) >=60 [facility] Comment: The reported eGFR should be multiplied by 1.2 for patients. The MDRD is not an appropriate measure of renal function for patients with body mass extremes or in patients with acute kidney failure. http://[employer]/DHnkdep http://[employer]/DHMCnkf Blood specimen (specimen) 05/13/2017 6:00 AM EDT 05/13/2017 6:19 AM EDT Narrative Resulting Agency Comment Spec In Lab Jesenia Dolan MD CHEMISTRY ORDERABLE S Performing Organization Address City/State/[facility] Co de Phone Number [facility] [place] [address] * (ABNORMAL) Differential, Automated (05/12/2017 11:49 PM EDT) Neutrophil % 62.9 % [facility] Neutrophil Absolute 1.90 1.70 - 6.10 x10(3)/mc L [facility] Lymph % 18.9 % [facility] Lymphocytes Abs 0.6(L) 0.9 - 3.2 x10(3)/mc L [facility] Monocyte % 15.9 % [facility] Monocyte Abs 0.5 0.3 - 0.9 x10(3)/mc L [facility] Eos % 2.0 % [facility] Eosinophils Abs 0.1 0.0 - 0.4 x10(3)/mc L [facility] Basophil % 0.0 % [facility] Baso Absolute 0.0 0.0 - 0.1 x10(3)/mc L [facility] Immature Gran % 0.30 % [facility] Comment: Immature granulocytes(IG's)percentage and absolute count will include metamyelocytes, myelocytes, and promyelocytes. Blood smears from CBCs yielding IG's will be scanned manually for concordance. If this scan disagrees with the automated IG or if promyelocytes are noted, a manual differential will be performed. Immature Gran Absolute 0.01 0.00 - 0.04 x10(3)/mc L [facility] Blood specimen (specimen) 05/12/2017 11:49 PM EDT 05/12/2017 11:55 PM EDT Narrative Resulting Agency Comment Spec In Lab Jesenia Dolan MD HEMATOLOGY ORDERABL ES [facility] [place] [address] * (ABNORMAL) Hemogram (05/12/2017 11:49 PM EDT) White Blood Cell 3.0(L) 4.0 - 9.5 x10(3)/mc L [facility] Red Blood Cell 2.74(L) 4.58 - 5.54 x10(6)/mc L [facility] Hemoglobin 8.1(L) 13.7 - 16.5 gm/dL [facility] Hematocrit 23.1(L) 40.5 - 48.5 % [facility] Mean Cell Volume 84.3 82.9 - 93.1 fL [facility] Mean Cell Hemoglobin 29.6 27.5 - 32.1 pg [facility] Mean Cell Hemoglobin Concentration 35.1 32.0 - 35.7 gm/dL [facility] Platelet 166 145 - 357 x10(3)/mc L [facility] RDW Standard Deviation 44.8 36.0 - 45.0 fL [facility] RDW coefficient of variation 14.7(H) 11.4 - 13.8 % [facility] Mean Platelet Volume 10.1 7.6 - 12.9 fL [facility] NRBC% auto 0.0 % [facility] NRBC Absolute 0.000 0.000 - 0.000 x10(3)/mc L [facility] Blood specimen (specimen) 05/12/2017 11:49 PM EDT 05/12/2017 11:55 PM EDT Narrative Resulting Agency Comment Spec In Lab Jesenia Dolan MD HEMATOLOGY ORDERABL ES [facility] [place] [address] * (ABNORMAL) Basic Metabolic Panel (non-fasting) (05/12/2017 11:49 PM EDT) Glucose 102 65 - 199 mg/dL [facility] Comment:Diabetes: >=200 mg/d L plus symptoms Blood Urea Nitrogen 71(H) 10 - 20 mg/dL [facility] Creatinine 4.11(H) 0.80 - 1.50 mg/dL [facility] Sodium 144 135 - 145 mmol/L [facility] Potassium 3.4(L) 3.5 - 5.0 mmol/L [facility] Comment: Please note: ??Patients with WBC >100,000 may have falsely elevated Potassium levels. ??For accurate Potassium quantification in these patients send serum separator tube (gold top) for subsequent determinations. ??Contact the Clinical Chemistry Laboratory if there are any questions. Chloride 113(H) 98 - 107 mmol/L [facility] Carbon Dioxide 14(L) 22 - 31 mmol/L [facility] Anion Gap 17(H) 5 - 15 mmol/L [facility] Calcium 7.5(L) 8.5 - 10.5 mg/dL [facility] Est Glomerular Filtration Rate 15(L) >=60 [facility] Comment: The reported eGFR should be multiplied by 1.2 for patients. The MDRD is not an appropriate measure of renal function for patients with body mass extremes or in patients with acute kidney failure. http://[employer]Soxiable/DHnkdep http://[employer]/DHMCnkf Blood specimen (specimen) 05/12/2017 11:49 PM EDT 05/12/2017 11:55 PM EDT Narrative Resulting Agency Comment Spec In Lab Jesenia Dolan MD CHEMISTRY ORDERABLE S Performing Organization Address City/[facility]/ZIP Co de Phone Number [facility] [place] [address] * Transfuse RBC (05/12/2017 11:03 PM EDT) Jesenia Dolan MD NURSING TREATMENT O RDERABLES - BLOOD ADMIN * Transfuse RBC (05/12/2017 11:03 PM EDT) Jesenia Dolan MD NURSING TREATMENT O RDERABLES - BLOOD ADMIN * Transfuse RBC (05/12/2017 7:22 PM EDT) Jesenia Dolan MD NURSING TREATMENT O RDERABLES - BLOOD ADMIN * Transfuse thawed plasma (05/12/2017 6:22 PM EDT) Jesenia Dolan MD NURSING TREATMENT O RDERABLES - BLOOD ADMIN * Transfuse thawed plasma (05/12/2017 4:36 PM EDT) Jesenia Dolan MD NURSING TREATMENT O RDERABLES - BLOOD ADMIN * Prepare RBC (05/12/2017 2:11 PM EDT) Dispensed? Yes [facility] Blood specimen (specimen) No Charge / Unknown 05/12/2017 2:11 PM EDT 05/12/2017 2:11 PM EDT Narrative Resulting Agency Comment Spec In Lab Jesenia Dolan MD BLOOD BANK PRODUCT ORDERABLES Performing Organization Address [facility]/ZIP Co de Phone Number [facility] [place] [address] * Prepare RBC (05/12/2017 2:10 PM EDT) Dispensed? Yes [facility] Blood specimen (specimen) 05/12/2017 2:10 PM EDT 05/12/2017 2:06 PM EDT Narrative Resulting Agency Comment Spec In Lab Jesenia Dolan MD BLOOD BANK PRODUCT ORDERABLES Performing Organization Address [facility] Co de Phone Number [facility] [place] [address] * Prepare thawed plasma (05/12/2017 2:05 PM EDT) Dispensed? Yes [facility] Blood specimen (specimen) 05/12/2017 2:05 PM EDT 05/12/2017 2:06 PM EDT Narrative Resulting Agency Comment Spec In Lab Jesenia Dolan MD BLOOD BANK PRODUCT ORDERABLES Performing Organization Address [facility] [place] [address] * (ABNORMAL) Prothrombin Time (05/12/2017 2:02 PM EDT) Prothrombin Time 27.5(H) 11.8 - 14.0 sec [facility] Comment: An INR <2.0 [...] may be appropriate depending on clinical circumstances. International Normalization Ratio 2.6(H) 0.9 - 1.1 [facility] Blood specimen (specimen) 05/12/2017 2:02 PM EDT 05/12/2017 2:20 PM EDT Narrative Resulting Agency Comment Spec In Lab Jesenia Dolan MD HEMATOLOGY ORDERABL ES Performing Organization Address [facility] Co de Phone Number [facility] [place] [address] * (ABNORMAL) Magnesium (05/12/2017 11:56 AM EDT) Pathologist [facility] Magnesium 0.61(L) 0.69 - 1.07 mmol/L [facility] Blood specimen (specimen) Venous Draw / Unknown 05/12/2017 11:56 AM EDT 05/12/2017 12:15 PM EDT Narrative Resulting Agency Comment Spec In Lab Jesenia Dolan MD CHEMISTRY ORDERABLE S [facility] [place] [address] * (ABNORMAL) Differential, Automated (05/12/2017 11:56 AM EDT) [facility] Neutrophil % 69.2 % [facility] Neutrophil Absolute 2.04 1.70 - 6.10 x10(3)/mc L [facility] Lymph % 13.9 % [facility] Lymphocytes Abs 0.4(L) 0.9 - 3.2 x10(3)/mc L [facility] Monocyte % 14.9 % [facility] Monocyte Abs 0.4 0.3 - 0.9 x10(3)/mc L [facility] Eos % 1.4 % [facility] Eosinophils Abs 0.0 0.0 - 0.4 x10(3)/mc L [facility] Basophil % 0.3 % [facility] Baso Absolute 0.0 0.0 - 0.1 x10(3)/mc L [facility] Immature Gran % 0.30 % [facility] Comment: Immature granulocytes(IG's)percentage and absolute count will include metamyelocytes, myelocytes, and promyelocytes. Blood smears from CBCs yielding IG's will be scanned manually for concordance. If this scan disagrees with the automated IG or if promyelocytes are noted, a manual differential will be performed. Immature Gran Absolute 0.01 0.00 - 0.04 x10(3)/mc L [facility] Blood specimen (specimen) 05/12/2017 11:56 AM EDT 05/12/2017 12:11 PM EDT Narrative Resulting Agency Comment Spec In Lab Jesenia Dolan MD HEMATOLOGY ORDERABL ES [facility] [place] [address] * (ABNORMAL) Hemogram (05/12/2017 11:56 AM EDT) White Blood Cell 3.0(L) 4.0 - 9.5 x10(3)/[facility] Red Blood Cell 2.49(L) 4.58 - 5.54 x10(6)/[facility] Hemoglobin 6.9(L) 13.7 - 16.5 gm/dL [facility] Hematocrit 21.6(L) 40.5 - 48.5 % [facility] Mean Cell Volume 86.7 82.9 - 93.1 [facility] Mean Cell Hemoglobin 27.7 27.5 - 32.1 pg [facility] Mean Cell Hemoglobin Concentration 31.9(L) 32.0 - 35.7 gm/dL [facility] Platelet 193 145 - 357 x10(3)/[facility] RDW Standard Deviation 48.7(H) 36.0 - 45.0 [facility] RDW coefficient of variation 15.4(H) 11.4 - 13.8 % [facility] Mean Platelet Volume 10.4 7.6 - 12.9 [facility] NRBC% auto 0.0 % [facility] NRBC Absolute 0.000 0.000 - 0.000 x10(3)/[facility] Blood specimen (specimen) 05/12/2017 11:56 AM EDT 05/12/2017 12:11 PM EDT Narrative Resulting Agency Comment Spec In Lab Jesenia Dolan MD HEMATOLOGY ORDERABL ES [facility] [place] [address] * (ABNORMAL) Basic Metabolic Panel (non-fasting) (05/12/2017 11:56 AM EDT) Glucose 126 65 - 199 mg/dL [facility] Comment:Diabetes: >=200 mg/d L plus symptoms Blood Urea Nitrogen 80(H) 10 - 20 mg/dL [facility] Creatinine 4.31(H) 0.80 - 1.50 mg/dL [facility] Sodium 143 135 - 145 mmol/L [facility] Potassium 3.1(L) 3.5 - 5.0 mmol/L [facility] Comment: Please note: ??Patients with WBC >100,000 may have falsely elevated Potassium levels. ??For accurate Potassium quantification in these patients send serum separator tube (gold top) for subsequent determinations. ??Contact the Clinical Chemistry Laboratory if there are any questions. Chloride 115(H) 98 - 107 mmol/L [facility] Carbon Dioxide 12(L) 22 - 31 mmol/L [facility] Anion Gap 16(H) 5 - 15 mmol/L [facility] Calcium 7.6(L) 8.5 - 10.5 mg/dL [facility] Est Glomerular Filtration Rate 14(L) >=60 [facility] Comment: The reported eGFR should be multiplied by 1.2 for patients. The MDRD is not an appropriate measure of renal function for patients with body mass extremes or in patients with acute kidney failure. http://[employer]Soxiable/DHnkdep http://[employer]com/DHMCnkf Blood specimen (specimen) 05/12/2017 11:56 AM EDT 05/12/2017 12:11 PM EDT Narrative Resulting Agency Comment Spec In Lab Jesenia Dolan MD CHEMISTRY ORDERABLE S [facility] [place] [address] * US Renal Transplant Right (05/12/2017 10:48 AM EDT) Anatomical Region Laterality Modality Abdomen Right Ultrasound 05/12/2017 10:4 2 AM EDT Impressions 05/12/2017 11:17 AM EDT ??1. ??Transplant kidney with dampened peak systolic velocities in the midpolearcuate arteries since 2010. Allowing for differences in scale, remainingvelocities and waveforms are stable. Normal resistive indices. 2. ??The renal parenchyma is normal. No perinephric fluid collection.3. ??No collecting system dilation.I have personally reviewed the image(s) and the residents interpretation andagree with the findings, Devi Hdez at 05/12/2017 11:09 AM ?Devi Hdez MD Electronically Signed Final Report ?? 05/12/2017 11:17 am Narrative 05/12/2017 11:17 AM EDT Transplant ? (Signed Final 05/12/2017 11:17 am) PATIENT INFO: ID #: ? [id number] ? : [birth year] (56 yrs) Name: ? CHRISTY AMBROSE ? Visit Date:05/12/2017 10:42 am PERFORMED BY: Performed By: ? Naz Smith RDMS Attending: ?Lemuel JONES, Devi Adams Resident: ? Danny Spears MD Referred By: ?JESENIA DOLAN Location: ? [place] SERVICE(S) PROVIDED: ??URTPR - Renal Transplant - Right - [id number] ? [id number] INDICATIONS: ??Evaluate for any evidence of hydronephrosis in ??transplant kidney COMPARISON: US: 12/31/10 RENAL ALLOGRAFT: Size (cm) ? L: 9.5 Cortical Thickness: ?Normal Corticomedullary Differention: Normal Echogenicity: ?Normal Perinephric Fluid/Collections: No collection identified RENAL TRANSPLANT DUPLEX: RIGHT Main Renal ? PSV ? EDV ?RIR ??Waveform ?Artery ?(cm/s) ??(cm/s) At ? 15.5 ? 5.0 ?0.68 ??Patent Anastomosis: Mid: ? 21.9 ? 5.9 ?0.73 ??Patent At [place]: ?18.9 ? 7.3 ?0.61 ??Patent RIGHT Main Renal ? Waveform ? Vein Proximal: ?Patent Mid: ? Patent Distal: ?Patent Comment: ?Duplicated Main Renal Artery PARENCHYMAL EVALUATION: RIGHT ?Arcuate ? PSV ? EDV ? RI ?Artery ?(cm/s) ??(cm/s) Upper Pole: ?12.2 ? 4.3 ?0.65 Mid Pole: ?11.9 ? 5.2 ?0.56 Lower Pole: ?15.0 ? 5.5 ?0.63 URINARY BLADDER: Pre-void (cm) ?L: 10.0 ?AP: ??10.7 ?TV: ??9.4 Vol (ml): ?526.6 Comment: ?Partially distended and unremarkable. Procedure Note Devi Hdez MD - 05/12/2017 Transplant (Signed Final 05/12/2017 11:17 am) PATIENT INFO: ID #: [id number] : [birth year] (56 yrs) Name: CHRISTY AMBROSE Visit Date:05/12/2017 10:42 am PERFORMED BY: Performed By: Naz Smith RDMS Attending: Devi Hdez MD Resident: Danny Spears MD Referred By: JESENIA DOLAN Location: [place] SERVICE(S) PROVIDED: URTPR - Renal Transplant - Right - [id number] INDICATIONS: Evaluate for any evidence of hydronephrosis in transplant kidney COMPARISON: US: 12/31/10 RENAL ALLOGRAFT: Size (cm) L: 9.5 Cortical Thickness: Normal Corticomedullary Differention: Normal Echogenicity: Normal Perinephric Fluid/Collections: No collection identified RENAL TRANSPLANT DUPLEX: RIGHT Main Renal PSV EDV RIR Waveform Artery (cm/s) (cm/s) At 15.5 5.0 0.68 Patent Anastomosis: Mid: 21.9 5.9 0.73 Patent At [place]: 18.9 7.3 0.61 Patent RIGHT Main Renal Waveform Vein Proximal: Patent Mid: Patent Distal: Patent Comment: Duplicated Main Renal Artery PARENCHYMAL EVALUATION: RIGHT Arcuate PSV EDV RI Artery (cm/s) (cm/s) Upper Pole: 12.2 4.3 0.65 Mid Pole: 11.9 5.2 0.56 Lower Pole: 15.0 5.5 0.63 URINARY BLADDER: Pre-void (cm) L: 10.0 AP: 10.7 TV: 9.4 Vol (ml): 526.6 Comment: Partially distended and unremarkable. IMPRESSION 1. Transplant kidney with dampened peak systolic velocities in the midpolearcuate arteries since 2010. Allowing for differences in scale, remainingvelocities and waveforms are stable. Normal resistive indices. 2. The renal parenchyma is normal. No perinephric fluid collection.3. No collecting system dilation.I have personally reviewed the image(s) and the residents interpretation andagree with the findings, Devi Hdez at 05/12/2017 11:09 AM Devi Hdez MD Electronically Signed Final Report 05/12/2017 11:17 am Jesenia Dolan MD IM US GEN ORDERABL ES * ABORH Recheck Status (05/12/2017 8:18 AM EDT) ABORH Type Recheck Completed [facility] Blood specimen (specimen) 05/12/2017 8:18 AM EDT 05/12/2017 8:36 AM EDT Narrative Resulting Agency Comment Spec In Lab Jesenia Dolan MD BLOOD BANK LAB RYAN Kenney Organization Address City/State/ZIP Co de Phone Number [facility] [place] [address] * Antibody screen (05/12/2017 8:18 AM EDT) Ab Screen Interp Negative [facility] Expires at [id number] on: 05/15/2017 [facility] Blood specimen (specimen) 05/12/2017 8:18 AM EDT 05/12/2017 8:36 AM EDT Narrative Resulting Agency Comment Spec In Lab Jesenia Dolan MD BLOOD BANK LAB ORDOctaviano CALERO [facility] [place] [address] * ABO/Rh Typing (05/12/2017 8:18 AM EDT) ABORH Type A Pos [facility] Blood specimen (specimen) 05/12/2017 8:18 AM EDT 05/12/2017 8:36 AM EDT Narrative Resulting Agency Comment Spec In Lab Jesenia Dolan MD BLOOD BANK LAB ORDOctaviano CALERO Performing Organization Address City/[facility]/ZIP Co de Phone Number [facility] [place] [address] * (ABNORMAL) Prothrombin Time (05/12/2017 7:33 AM EDT) [facility] Prothrombin Time 53.8(Crit ical) 11.8 - 14.0 sec [facility] Comment: Called by: eds, Read back by: Ilda kate, Date/Time:05/12/17 07:59. An INR <2.0 indicates adequate procoagulant activity for hemostasis in most patients without underlying bleeding disorders, though the INR may not adequately reflect hemostatic capacity in patients with liver disease and synthetic impairment. The recommended target INR range for therapeutic anticoagulation is 2.0 ? 3.0 for most applications, though lower and higher ranges may be appropriate depending on clinical circumstances. International Normalization Ratio 5.9(H) 0.9 - 1.1 [facility] Blood specimen (specimen) 05/12/2017 7:33 AM EDT 05/12/2017 7:42 AM EDT Narrative Resulting Agency Comment Spec In Lab Flori Thompson APRN HEMATOLOGY ORDERABLE S Performing Organization Address [facility]/ZIP Co de Phone Number [facility] [place] [address] * Creatinine, urine, random (05/12/2017 6:20 AM EDT) Creatinine, Urine 120 mg/dL [facility] Urine specimen (specimen) 05/12/2017 6:20 AM EDT 05/12/2017 6:47 AM EDT Narrative Resulting Agency Comment Spec In Lab Jesenia Dolan MD URINE ORDERABLES Performing Organization Address [facility] Co de Phone Number [facility] [place] [address] * Sodium, urine, random (05/12/2017 6:20 AM EDT) Sodium, Urine <20 mmol/L [facility] Urine specimen (specimen) 05/12/2017 6:20 AM EDT 05/12/2017 6:47 AM EDT Narrative Resulting Agency Comment Spec In Lab Jesenia Dolan MD URINE ORDERABLES Performing Organization Address [facility] Co de Phone Number [facility] [place] [address] * (ABNORMAL) _Urinalysis with microscopic (05/12/2017 6:20 AM EDT) Glucose, Urine Dipstick Negative Negative mg/dL [facility] Protein, Urine Dipstick 30(A) Negative mg/dL [facility] Bilirubin, Urine Dipstick Negative Negative mg/dL [facility] Comment: Clinical correlation required for positive Urine Bilirubin results as false positive may occur with some drugs and drug related products. If a false positive is suspected a serum total bilirubin should be considered if clinically indicated. Urobilinogen, Urine Dipstick Normal Normal mg/dL [facility] pH, Urn (dipstick) 6.0 5.0 - 8.0 [facility] Blood, Urine Dipstick Negative Negative mg/dL [facility] Ketone, Urine Dipstick Negative Negative mg/dL [facility] Nitrite, Urine Dipstick Negative Negative [facility] Leukocytes, Urine Dipstick Negative Negative [facility] Appearance, Urine Dipstick Clear Clear [facility] Specific [place] Urine Automated 1.015 1.002 - 1.030 [facility] Color, Urine Dipstick Yellow Yellow [facility] RBC, Urine <1 0 - 3 /HPF [facility] WBC, Urine 1 0 - 3 /HPF [facility] Squamous Epithelial Cells Raw Data, Urine <1 <=4 /HPF [facility] Hyaline Casts, Urine 4(H) 0 - 2 /LPF [facility] Urine specimen (specimen) 05/12/2017 6:20 AM EDT 05/12/2017 6:47 AM EDT Narrative Resulting Agency Comment Spec In Lab Jesenia Dolan MD URINE ORDERABLES [facility] [place] [address] * (ABNORMAL) Differential, Automated (05/12/2017 6:18 AM EDT) Neutrophil % 66.3 % [facility] Neutrophil Absolute 1.77 1.70 - 6.10 x10(3)/mc L [facility] Lymph % 18.7 % [facility] Lymphocytes Abs 0.5(L) 0.9 - 3.2 x10(3)/mc L [facility] Monocyte % 12.4 % [facility] Monocyte Abs 0.3 0.3 - 0.9 x10(3)/mc L [facility] Eos % 2.6 % [facility] Eosinophils Abs 0.1 0.0 - 0.4 x10(3)/[facility] Basophil % 0.0 % [facility] Baso Absolute 0.0 0.0 - 0.1 x10(3)/[facility] Immature Gran % 0.00 % [facility] Comment: Immature granulocytes(IG's)percentage and absolute count will include metamyelocytes, myelocytes, and promyelocytes. Blood smears from CBCs yielding IG's will be scanned manually for concordance. If this scan disagrees with the automated IG or if promyelocytes are noted, a manual differential will be performed. Immature Gran Absolute 0.00 0.00 - 0.04 x10(3)/[facility] Blood specimen (specimen) 05/12/2017 6:18 AM EDT 05/12/2017 6:33 AM EDT Narrative Resulting Agency Comment Spec In Lab Jesenia Dolan MD HEMATOLOGY ORDERABL ES [facility] [place] [address] * (ABNORMAL) Hemogram (05/12/2017 6:18 AM EDT) White Blood Cell 2.7(L) 4.0 - 9.5 x10(3)/[facility] Red Blood Cell 2.47(L) 4.58 - 5.54 x10(6)/[facility] Hemoglobin 7.2(L) 13.7 - 16.5 gm/dL [facility] Hematocrit 21.3(L) 40.5 - 48.5 % [facility] Mean Cell Volume 86.2 82.9 - 93.1 fL [facility] Mean Cell Hemoglobin 29.1 27.5 - 32.1 pg [facility] Mean Cell Hemoglobin Concentration 33.8 32.0 - 35.7 gm/dL [facility] Platelet 188 145 - 357 x10(3)/mc L [facility] RDW Standard Deviation 47.7(H) 36.0 - 45.0 fL [facility] RDW coefficient of variation 15.3(H) 11.4 - 13.8 % [facility] Mean Platelet Volume 10.3 7.6 - 12.9 fL [facility] NRBC% auto 0.0 % [facility] NRBC Absolute 0.000 0.000 - 0.000 x10(3)/mc L [facility] Blood specimen (specimen) 05/12/2017 6:18 AM EDT 05/12/2017 6:33 AM EDT Narrative Resulting Agency Comment Spec In Lab Jesenia Dolan MD HEMATOLOGY ORDERABL ES Performing Organization Address [facility] de Phone Number [facility] [place] [address] * Prealbumin (05/12/2017 6:18 AM EDT) Prealbumin 28 20 - 40 mg/dL [facility] Comment: Prealbumin levels are generally lower in the pediatric population; adult concentrations are usually attained near puberty. Blood specimen (specimen) 05/12/2017 6:18 AM EDT 05/12/2017 6:33 AM EDT Narrative Resulting Agency Comment Spec In Lab Jesenia Dolan MD CHEMISTRY ORDERABLE S Performing Organization Address [facility] Co de Phone Number [facility] [place] [address] * (ABNORMAL) Basic Metabolic Panel (non-fasting) (05/12/2017 6:18 AM EDT) Glucose 101 65 - 199 mg/dL [facility] Comment:Diabetes: >=200 mg/d L plus symptoms Blood Urea Nitrogen 82(H) 10 - 20 mg/dL [facility] Creatinine 4.93(H) 0.80 - 1.50 mg/dL [facility] Sodium 148(H) 135 - 145 mmol/L [facility] Potassium 3.3(L) 3.5 - 5.0 mmol/L [facility] Comment: Please note: ??Patients with WBC >100,000 may have falsely elevated Potassium levels. ??For accurate Potassium quantification in these patients send serum separator tube (gold top) for subsequent determinations. ??Contact the Clinical Chemistry Laboratory if there are any questions. Chloride 116(H) 98 - 107 mmol/L [facility] Carbon Dioxide 12(L) 22 - 31 mmol/L [facility] Anion Gap 20(H) 5 - 15 mmol/L [facility] Calcium 7.4(L) 8.5 - 10.5 mg/dL [facility] Est Glomerular Filtration Rate 12(L) >=60 [facility] Comment: The reported eGFR should be multiplied by 1.2 for patients. The MDRD is not an appropriate measure of renal function for patients with body mass extremes or in patients with acute kidney failure. http://[employer]oxiable/DHnkdep http://[employer]/DHMCnkf Blood specimen (specimen) 05/12/2017 6:18 AM EDT 05/12/2017 6:33 AM EDT Narrative Resulting Agency Comment Spec In Lab Jesenia Dolan MD CHEMISTRY ORDERABLE S [facility] [place] [address] * Tacrolimus level (05/12/2017 6:18 AM EDT) Tacrolimus <3.0 ng/mL [facility] Comment: Trough therapeutic: ??5-15 ng/mL Performed by ultra-performance liquid chromatography tandem mass spectrometry (UPLCMS/MS). This test was developed and its performance characteristics determined by [facility]. It has not been cleared or approved by the FDA. The laboratory is regulated under CLIA as qualified to perform high-complexity testing. This test is used for clinical purposes. It should not be regarded as investigational or for research. Blood specimen (specimen) 05/12/2017 6:18 AM EDT 05/12/2017 7:23 AM EDT Narrative Resulting Agency Comment Spec In Lab Jesenia Dolan MD CHEMISTRY ORDERABLE S Performing Organization Address [facility] Co de Phone Number [facility] [place] [address] * Phosphorus (05/12/2017 6:18 AM EDT) Phosphorus 4.4 2.5 - 4.5 mg/dL [facility] Blood specimen (specimen) 05/12/2017 6:18 AM EDT 05/12/2017 6:33 AM EDT Narrative Resulting Agency Comment Spec In Lab Jesenia Dolan MD CHEMISTRY ORDERABLE S Performing Organization Address [facility] Co de Phone Number [facility] [place] [address] * Hemoglobin A1c (05/12/2017 6:18 AM EDT) Hemoglobin A1c 5.5 4.3 - 5.6 % [facility] Comment: Reference Range: 4.3 - 5.6% [...] Mellitus, Diabetes Care 2013; 36: Suppl. 1, M17-59 Estimated Average Glucose 111 mg/dL [facility] Comment: eAG equivalents for HbA1c percentages: [...] into estimated average glucose values. ??Diabetes Care 2008:31(8):7179-2071. Blood specimen (specimen) 05/12/2017 6:18 AM EDT 05/12/2017 6:32 AM EDT Narrative Resulting Agency Comment Spec In Lab Jesenia Dolan MD CHEMISTRY ORDERABLE S [facility] [place] [address] * (ABNORMAL) Hepatic Function Panel (05/12/2017 6:18 AM EDT) Protein, Total 4.8(L) 6.1 - 8.0 gm/dL [facility] Albumin 3.0(L) 3.2 - 5.2 gm/dL [facility] Aspartate Aminotransferase 11 0 - 39 unit/L [facility] Alanine Aminotransferase 10 0 - 55 unit/L [facility] Alkaline Phosphatase 101 40 - 120 unit/L [facility] Bilirubin, Total 0.3 0.2 - 1.3 mg/dL [facility] Bilirubin, Direct 0.1 0.0 - 0.3 mg/dL [facility] Blood specimen (specimen) 05/12/2017 6:18 AM EDT 05/12/2017 6:33 AM EDT Narrative Resulting Agency Comment Spec In Lab Jesenia Dolan MD CHEMISTRY ORDERABLE S Performing Organization Address City/[facility]/ZIP Co de Phone Number [facility] [place] [address] * TSH Mcclain (05/12/2017 6:18 AM EDT) Thyroid Stimulating Hormone 3.21 0.27 - 4.20 mlU/ML [facility] Blood specimen (specimen) 05/12/2017 6:18 AM EDT 05/12/2017 6:33 AM EDT Narrative Resulting Agency Comment Spec In Lab Jesenia Dolan MD CHEMISTRY ORDERABLE S Performing Organization Address City/[facility] Co de Phone Number [facility] [place] [address] * (ABNORMAL) XR Chest PA & Lateral (Generic) (05/11/2017 9:45 PM EDT) Anatomical Region Laterality Modality Chest N/A Digital Radiogra phy Impressions 05/12/2017 8:16 AM EDT Asymmetric opacity superimposing onto the costochondral junction of the first rib on the right, presumably due to degenerative disease. However, given history of weight loss and immunosuppression and presumably concern for malignancy a CT is recommended. Chest radiograph is not an accepted modality to exclude pulmonary malignancy.UNEXPECTED FINDING. Narrative 05/12/2017 8:16 AM EDT EXAMINATION: XR CHEST PA AND LATERAL (GENERIC) CLINICAL HISTORY: weight loss, immunosuppressed TECHNIQUE: PA and lateral chest. COMPARISON: None FINDINGS: Opacity in the cranial aspect of the right lung is most likely due to degenerative disease at the first rib costochondral junction. However, the appearance is quite asymmetric in comparison to the left side. Otherwise unremarkable findings of the lungs. No pleural effusion. Normal size of the heart and width of the mediastinum. Degenerative changes of the spine. Resulting Agency Comment Unexpected Finding Jesenia Dolan MD IMG DX ORDERABLES * EKG 12 Lead (05/11/2017 9:18 PM EDT) Pathologist [facility] Ventricular rate 48 BPM MUSE SYSTEM Atrial Rate 48 BPM MUSE SYSTEM P-R Interval 132 ms MUSE SYSTEM QRS Duration 98 ms MUSE SYSTEM Q-T Interval 448 ms MUSE SYSTEM QTC Calculated (Bezet) 400 ms MUSE SYSTEM Calculated P [place] 54 degrees MUSE SYSTEM Calculated R [place] 56 degrees MUSE SYSTEM Calculated T [place] 47 degrees MUSE SYSTEM INTERPRETATION Marked sinus bradycardia Abnormal ECG When compared with ECG of 26-NOV-2002 10:23, T wave amplitude has decreased in Lateral leads Confirmed by Carter Pan MD ([id number]) on 05/12/2017 3:10:32 PM MUSE SYSTEM 05/11/2017 9:18 PM EDT 05/12/2017 3:10 PM EDT Jesenia Dolan MD ECG ORDERABLES MUSE SYSTEM * (ABNORMAL) Differential, Automated (05/11/2017 8:30 PM EDT) [facility] Neutrophil % 65.9 % [facility] Neutrophil Absolute 2.58 1.70 - 6.10 x10(3)/mc L [facility] Lymph % 16.1 % [facility] Lymphocytes Abs 0.6(L) 0.9 - 3.2 x10(3)/mc L [facility] Monocyte % 15.9 % [facility] Monocyte Abs 0.6 0.3 - 0.9 x10(3)/mc L [facility] Eos % 1.5 % [facility] Eosinophils Abs 0.1 0.0 - 0.4 x10(3)/mc L [facility] Basophil % 0.3 % [facility] Baso Absolute 0.0 0.0 - 0.1 x10(3)/mc L [facility] Immature Gran % 0.30 % [facility] Comment: Immature granulocytes(IG's)percentage and absolute count will include metamyelocytes, myelocytes, and promyelocytes. Blood smears from CBCs yielding IG's will be scanned manually for concordance. If this scan disagrees with the automated IG or if promyelocytes are noted, a manual differential will be performed. Immature Gran Absolute 0.01 0.00 - 0.04 x10(3)/[facility] Blood specimen (specimen) 05/11/2017 8:30 PM EDT 05/11/2017 8:42 PM EDT Narrative Resulting Agency Comment Spec In Lab Jesenia Dolan MD HEMATOLOGY ORDERABL ES [facility] [place] [address] * (ABNORMAL) Hemogram (05/11/2017 8:30 PM EDT) White Blood Cell 3.9(L) 4.0 - 9.5 x10(3)/[facility] Red Blood Cell 2.95(L) 4.58 - 5.54 x10(6)/[facility] Hemoglobin 8.5(L) 13.7 - 16.5 gm/dL [facility] Hematocrit 26.0(L) 40.5 - 48.5 % [facility] Mean Cell Volume 88.1 82.9 - 93.1 [facility] Mean Cell Hemoglobin 28.8 27.5 - 32.1 pg [facility] Mean Cell Hemoglobin Concentration 32.7 32.0 - 35.7 gm/dL [facility] Platelet 214 145 - 357 x10(3)/[facility] RDW Standard Deviation 49.6(H) 36.0 - 45.0 fL [facility] RDW coefficient of variation 15.6(H) 11.4 - 13.8 % [facility] Mean Platelet Volume 10.2 7.6 - 12.9 fL [facility] NRBC% auto 0.0 % [facility] NRBC Absolute 0.000 0.000 - 0.000 x10(3)/mc L [facility] Blood specimen (specimen) 05/11/2017 8:30 PM EDT 05/11/2017 8:42 PM EDT Narrative Resulting Agency Comment Spec In Lab Jesenia Dolan MD HEMATOLOGY ORDERABL ES [facility] [place] [address] * (ABNORMAL) Basic Metabolic Panel (non-fasting) (05/11/2017 8:30 PM EDT) Glucose 110 65 - 199 mg/dL [facility] Comment:Diabetes: >=200 mg/d L plus symptoms Blood Urea Nitrogen 84(H) 10 - 20 mg/dL [facility] Creatinine 4.93(H) 0.80 - 1.50 mg/dL [facility] Sodium 144 135 - 145 mmol/L [facility] Potassium 3.3(L) 3.5 - 5.0 mmol/L [facility] Comment: Please note: ??Patients with WBC >100,000 may have falsely elevated Potassium levels. ??For accurate Potassium quantification in these patients send serum separator tube (gold top) for subsequent determinations. ??Contact the Clinical Chemistry Laboratory if there are any questions. Chloride 113(H) 98 - 107 mmol/L [facility] Carbon Dioxide 12(L) 22 - 31 mmol/L [facility] Anion Gap 19(H) 5 - 15 mmol/L [facility] Calcium 8.1(L) 8.5 - 10.5 mg/dL [facility] Est Glomerular Filtration Rate 12(L) >=60 [facility] Comment: The reported eGFR should be multiplied by 1.2 for patients. The MDRD is not an appropriate measure of renal function for patients with body mass extremes or in patients with acute kidney failure. http://[employer]iable/DHnkdep [email or web address]://[employer]com/DHMCnkf Blood specimen (specimen) 05/11/2017 8:30 PM EDT 05/11/2017 8:42 PM EDT Narrative Resulting Agency Comment Spec In Lab Jesenia Dolan MD CHEMISTRY ORDERABLE S Performing Organization Address City/[facility]/ZIP Co de Phone Number [facility] [place] [address] * Lactate, whole blood, send to lab (05/11/2017 8:30 PM EDT) Lactate WB 1.2 0.5 - 2.2 mmol/L [facility] Blood specimen (specimen) 05/11/2017 8:30 PM EDT 05/11/2017 8:40 PM EDT Narrative Resulting Agency Comment Spec In Lab Jesenia Dolan MD CHEMISTRY ORDERABLE S Performing Organization Address City/[facility]/ZIP Co de Phone Number [facility] [place] [address] documented in this encounter Visit Diagnoses Diagnosis TRISTIAN (acute kidney injury) Acute kidney failure, unspecified S/P kidney transplant Kidney replaced by transplant Weight loss Loss of weight End stage renal disease Gout, unspecified cause, unspecified chronicity, unspecified site Hypertension, unspecified type Kidney replaced by transplant IgA nephropathy Nephritis and nephropathy, not specified as acute or chronic, with unspecified pathological lesion in kidney Basal cell carcinoma, unspecified site Acne rosacea Rosacea Nevus Benign neoplasm of skin, site unspecified Rosacea Anticoagulated on Coumadin Encounter for therapeutic drug monitoring Non-neoplastic nevus Nevus, non-neoplastic Polyp of colon, unspecified part of colon, unspecified type Squamous cell carcinoma of skin of other parts of face Aftercare following organ transplant CKD (chronic kidney disease) stage 4, GFR 15-29 ml/min Chronic kidney disease, Stage IV (severe) Prophylactic immunotherapy 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 H/O kidney transplant Kidney replaced by transplant TRISTIAN (acute kidney injury) Acute kidney failure, unspecified Weight loss Loss of weight documented in this encounter Administered Medications Inactive Administered Medications - up to 3 most recent administrations Medication Order MAR Action Action Date Dose Rate Site acetaminophen (TYLENOL) tablet 1,000 mg 1,000 mg, Oral, EVERY 8 HOURS PRN, Starting on Wed05/12/17 at 1000, Until 05/16/17 at 1545, Pain, Maximum dose of acetaminophen is 4000 mg from all sources in 24 hours., Routine allopurinol (ZYLOPRIM) tablet 100 mg 100 mg, Oral, DAILY, First dose on Wed05/11/17 at 2030, Until Discontinued, Routine Given 05/16/2017 8:35 AM EST 100 mg Given 05/15/2017 8:59 AM EDT 100 mg Given 05/14/2017 8:41 AM EDT 100 mg camphor-menthol (SARNA) lotion Topical (Top), 3 TIMES DAILY, First dose on Wed05/15/17 at 1700, Until Discontinued, To back Given 05/16/2017 8:36 AM EST Given 05/15/2017 8:16 PM EDT Given 05/15/2017 5:19 PM EDT dextrose 5% and sodium chloride 0.45% infusion 125 mL/hr, Intravenous, CONTINUOUS, Starting on Wed05/12/17 at 1115, Until 05/15/17 at 1426 New Bag 05/15/2017 5:29 AM EDT 125 mL/hr 125 mL/hr New Bag 05/14/2017 7:04 PM EDT 125 mL/hr 125 mL/hr Rate/Dose Verify 05/14/2017 9:00 AM EDT 125 mL/hr 125 mL/ hr dextrose 5% infusion 100 mL/hr, Intravenous, CONTINUOUS, Starting on Wed05/12/17 at 0830, Until Wed05/12/17 at 1049 New Bag 05/12/2017 8:19 AM EDT 100 mL/hr 100 mL/hr diphenhydrAMINE (BENADRYL) capsule 25 mg 25 mg, Oral, ONCE, 1 dose, On Wed05/12/17 at 1845, Routine Given 05/12/2017 7:20 PM EDT 25 mg epoetin kerry (EPOGEN;PROCRIT) injection 40,000 Units 40,000 Units, Subcutaneous, THREE TIMES WEEKLY (Mon, Weds, Wed) (Once per day on Wed), First dose on Wed05/14/17 at 0900, Until Discontinued, Routine, What is the indication of use? Chronic Kidney Disease (CKD) Given 05/14/2017 8:44 AM EDT 40,000 Units heparin (Porcine) subcutaneous injection 5,000 Units 5,000 Units, Subcutaneous, 2 TIMES DAILY, First dose on 05/15/17 at 1045, Until Discontinued, Routine Given 05/16/2017 8:35 AM EST 5,000 Units Given 05/15/2017 8:17 PM EDT 5,000 Units Given 05/15/2017 12:04 PM EDT 5,000 Units Right Lower Quadrant hydrALAZINE (APRESOLINE) tablet 25 mg 25 mg, Oral, 2 TIMES DAILY, First dose (after last modification) on 05/15/17 at 2100, Until Discontinued, Take with Food, Routine Given 05/16/2017 8:35 AM EST 25 mg Given 05/15/2017 8:16 PM EDT 25 mg iohexol (OMNIPAQUE) radiology oral prep (50 mL of oral contrast) 240 mL, Oral, ONCE, 1 dose, On Wed05/14/17 at 0730, 8 ounce cup = 240 mL of contrast 3 hours before scan as tolerated. The patient should not eat food or drink any other liquids during the entire period in which they are drinking the contrast. Mix 1 bottle (50 mL) of Omnipaque 350 with 1 liter (1,000 mL) non-carbonated beverage (preferably water). Close cover and shake vigorously and then refrigerate, if desired. Dispose of any excess preparation in a sink. Properly dispose of container., Routine Given 05/14/2017 7:30 AM EDT 240 mLs iohexol (OMNIPAQUE) radiology oral prep (50 mL of oral contrast) 240 mL, Oral, ONCE, 1 dose, On Wed05/14/17 at 0830, 8 ounce cup = 240 mL of contrast 2 hours before scan as tolerated. The patient should not eat food or drink any other liquids during the entire period in which they are drinking the contrast. Mix 1 bottle (50 mL) of Omnipaque 350 with 1 liter (1,000 mL) non-carbonated beverage (preferably water). Close cover and shake vigorously and then refrigerate, if desired. Dispose of any excess preparation in a sink. Properly dispose of container., Routine Given 05/14/2017 9:30 AM EDT 240 mLs iohexol (OMNIPAQUE) radiology oral prep (50 mL of oral contrast) 240 mL, Oral, ONCE, 1 dose, On Wed05/14/17 at 0930, 8 ounce cup = 240 mL of contrast 1 hours before scan as tolerated. The patient should not eat food or drink any other liquids during the entire period in which they are drinking the contrast. Mix 1 bottle (50 mL) of Omnipaque 350 with 1 liter (1,000 mL) non-carbonated beverage (preferably water). Close cover and shake vigorously and then refrigerate, if desired. Dispose of any excess preparation in a sink. Properly dispose of container., Routine Given 05/14/2017 9:57 AM EDT 240 mLs iohexol (OMNIPAQUE) radiology oral prep (50 mL of oral contrast) 240 mL, Oral, ONCE, 1 dose, On Wed05/14/17 at 1000, 8 ounce cup = 240 mL of contrast 20 minutes before scan as tolerated. The patient should not eat food or drink any other liquids during the entire period in which they are drinking the contrast. Mix 1 bottle (50 mL) of Omnipaque 350 with 1 liter (1,000 mL) non-carbonated beverage (preferably water). Close cover and shake vigorously and then refrigerate, if desired. Dispose of any excess preparation in a sink. Properly dispose of container., Routine Given 05/14/2017 10:15 AM EDT 240 mLs levETIRAcetam (KEPPRA) tablet 500 mg 500 mg, Oral, 2 TIMES DAILY, First dose on Wed05/11/17 at 2100, Until Discontinued, Routine Given 05/16/2017 8:35 AM EST 500 mg Given 05/15/2017 8:16 PM EDT 500 mg Given 05/15/2017 8:59 AM EDT 500 mg levothyroxine (SYNTHROID) tablet 88 mcg 88 mcg, Oral, DAILY, First dose on Wed05/12/17 at 0900, Until Discontinued, Routine Given 05/16/2017 8:35 AM EST 88 mcg Given 05/15/2017 8:59 AM EDT 88 mcg Given 05/14/2017 8:41 AM EDT 88 mcg magnesium sulfate 1g in dextrose 5% 100mL 1 g, Intravenous, ONCE, 1 dose, On Wed05/12/17 at 1600, Administer over 60 Minutes New Bag 05/12/2017 3:34 PM EDT 1 g 100 mL/hr magnesium sulfate 1g in dextrose 5% 100mL 1 g, Intravenous, ONCE, 1 dose, On Wed05/13/17 at 2100, Administer over 60 Minutes New Bag 05/13/2017 9:40 PM EDT 1 g 100 mL/hr magnesium sulfate 2 g in sterile water 50 mL 2 g, Intravenous, ONCE, 1 dose, On Wed05/14/17 at 1515, Administer over 120 Minutes New Bag 05/14/2017 4:36 PM EDT 2 g 25 mL/hr magnesium sulfate 2 g in sterile water 50 mL 2 g, Intravenous, ONCE, 1 dose, On Wed05/16/17 at 1000, Administer over 120 Minutes New Bag 05/16/2017 10:02 AM EST 2 g 25 mL/hr mycophenolate (CELLCEPT) capsule 250 mg 250 mg, Oral, 2 TIMES DAILY, First dose (after last modification) on Wed05/12/17 at 2100, Until Discontinued, DO NOT CRUSH OR OPEN Administer to patient on empty stomach (1 hour before or two hours after a meal)., Routine Given 05/16/2017 8:35 AM EST 250 mg Given 05/15/2017 8:17 PM EDT 250 mg Given 05/15/2017 9:00 AM EDT 250 mg mycophenolate (CELLCEPT) capsule 750 mg 750 mg, Oral, 2 TIMES DAILY, First dose on Wed05/11/17 at 2100, Until Discontinued, DO NOT CRUSH OR OPEN Administer to patient on empty stomach (1 hour before or two hours after a meal)., Routine Given 05/12/2017 8:19 AM EDT 750 mg Given 05/11/2017 9:54 PM EDT 750 mg ondansetron (ZOFRAN) injection 4 mg 4 mg, Intravenous, EVERY 8 HOURS PRN, Starting on Wed05/11/17 at 2359, Until Wed05/16/17 at 1545, Nausea, Routine Given 05/16/2017 2:05 AM EST 4 mg Given 05/12/2017 12:08 AM EDT 4 mg pantoprazole (PROTONIX) injection 40 mg 40 mg, Intravenous, 2 TIMES DAILY, First dose on Wed05/12/17 at 0030, Until Discontinued Given 05/16/2017 8:35 AM EST 4 0 mg Given 05/15/2017 8:17 PM EDT 40 mg Given 05/15/2017 9:00 AM EDT 40 mg phytonadione (vitamin K1) (AQUA-MEPHYTON) 10 mg in sodium chloride 0.9% 51 mL 10 mg, Intravenous, ONCE, 1 dose, On Wed05/12/17 at 0900, Administer over 60 Minutes, Administer by slow IV infusion over 60 minutes New 05/12/2017 9:12 AM EDT 10 mg 51 mL/hr potassium chloride 10 mEq in 100 mL 10 mEq, Intravenous, EVERY 2 HOURS, 2 doses, First dose on Wed05/12/17 at 1430, Last dose on Wed05/12/17 at 1630, Administer over 60 Minutes, Warning Vesicant/Irritant Medication New Bag 05/12/2017 4:40 PM EDT 10 mEq 100 mL/hr 05/12/2017 2:15 PM EDT 10 mEq 100 mL/hr potassium chloride 10 mEq in 100 mL 10 mEq, Intravenous, EVERY 2 HOURS, 2 doses, First dose on Wed05/13/17 at 0200, Last dose on Wed05/13/17 at 0400, Administer over 60 Minutes, Warning Vesicant/Irritant Medication New Bag 05/13/2017 4:00 AM EDT 10 mEq 100 mL/hr New Bag 05/13/2017 3:48 AM EDT 10 mEq 100 mL/hr potassium chloride 10 mEq in 100 mL 10 mEq, Intravenous, EVERY HOUR, 5 doses, First dose on Wed05/14/17 at 0900, Last dose on Wed05/14/17 at 1300, Administer over 60 Minutes, Warning Vesicant/Irritant Medication New Bag 05/14/2017 3:03 PM EDT 10 mEq 100 mL/hr New 05/14/2017 1:32 PM EDT 10 mEq 100 mL/hr Restarted 05/14/2017 1:27 PM EDT 10 mEq 100 mL/hr potassium chloride 10 mEq in 100 mL 10 mEq, Intravenous, EVERY 2 HOURS, 3 doses, First dose on Wed05/14/17 at 2030, Last dose on Wed05/15/17 at 0030, Administer over 60 Minutes, Warning Vesicant/Irritant Medication New Bag 05/15/2017 12:33 AM EDT 10 mEq 100 mL/hr New Bag 05/14/2017 11:18 PM EDT 10 mEq 100 mL/hr New Bag 05/14/2017 9:09 PM EDT 10 mEq 100 mL/hr sodium bicarbonate tablet 1,300 mg 1,300 mg, Oral, 3 TIMES DAILY, First dose on Wed05/12/17 at 1500, Until Discontinued, Routine Given 05/16/2017 8:35 AM EST 1,300 mg Given 05/15/2017 8:17 PM EDT 1,300 mg Given 05/15/2017 3:15 PM EDT 1,300 mg sodium chloride 0.9 % flush 5 mL 5 mL, Intravenous, 2 TIMES DAILY, First dose on Wed05/11/17 at 2100, Until Discontinued, Routine Given 05/16/2017 8:36 AM EST 5 mLs Given 05/15/2017 8:18 PM EDT 5 mLs Given 05/15/2017 9:00 AM EDT 5 mLs sodium chloride 0.9% infusion 1,000 mL, at 100 mL/hr, Intravenous, CONTINUOUS, Starting on Wed05/11/17 at 2015, Until Wed05/12/17 at 0807 05/11/2017 9:55 PM EDT 1,000 mLs 100 mL/hr tacrolimus (PROGRAF) capsule 1 mg 1 mg, Oral, 2 TIMES DAILY, First dose on Wed05/11/17 at 2100, Until Discontinued, Routine Given 05/16/2017 8:42 AM EST 1 mg Given 05/15/2017 8:16 PM EDT 1 mg Given 05/15/2017 8:59 AM EDT 1 mg warfarin (COUMADIN) daily order reminder Oral, EVERY 24 HOURS, First dose (after last modification) on Wed05/13/17 at 1500, Until Discontinued, Pharmacist-managed warfarin, Medication Name: Warfarin, Hospitalist Service? Yes, Treatment Plan: Continuation of Therapy, Indication for Anticoagulation: Deep Vein Thrombosis, INR Goal Range: 2-3, Anticipated Duration of Therapy: Indefinite documented in this encounter Active and Recently Administered Medications Due to Daylight Saving Time, this section may contain times in both EDT and EST. Scheduled Medication Order 05/14/2017 05/15/2017 05/16/2017 allopurinol (ZYLOPRIM) tablet 100 mg 100 mg, Oral, DAILY, First dose on Wed05/11/17 at 2030, Until Discontinued, Routine 0841 (Given - Provider: Selma Torres RN) 0859 (Given - Provider: Nanda Mg, SAVANNA) 0835 (Given - Provider: Nancy Ahumada, RN) camphor-menthol (SARNA) lotion Topical (Top), 3 TIMES DAILY, First dose on Wed05/15/17 at 1700, Until Discontinued, To back 1719 (Given - Provider: Nanda Mg, SAVANNA)2015 (Given - Provider: Rosita Aranda RN) 0836 (Given - Provider: Nancy Ahumada, SAVANNA) epoetin kerry (EPOGEN;PROCRIT) injection 40,000 Units 40,000 Units, Subcutaneous, THREE TIMES WEEKLY (Wed, , Wed) (Once per day on Wed), First dose on Wed05/14/17 at 0900, Until Discontinued, Routine, What is the indication of use? Chronic Kidney Disease (CKD) 0844 (Given - Provider: Selma Torres RN) heparin (Porcine) subcutaneous injection 5,000 Units 5,000 Units, Subcutaneous, 2 TIMES DAILY, First dose on Wed05/15/17 at 1045, Until Discontinued, Routine 1204 (Given - Provider: Nanda Mg RN - Comment: 1ST dose given late; new order)2016 (Given - Provider: Rosita Aranda RN) 0835 (Given - Provider: Nancy Ahumada, SAVANNA) hydrALAZINE (APRESOLINE) tablet 25 mg 25 mg, Oral, 2 TIMES DAILY, First dose (after last modification) on Wed05/15/17 at 2100, Until Discontinued, Take with Food, Routine 2015 (Given - Provider: Rosita Aranda RN) 0835 (Given - Provider: Nancy Ahumada, SAVANNA) iohexol (OMNIPAQUE) radiology oral prep (50 mL of oral contrast) (COMPLETED)(Linked Group 1) 240 mL, Oral, ONCE, 1 dose, On Wed05/14/17 at 0730, 8 ounce cup = 240 mL of contrast 3 hours before scan as tolerated. The patient should not eat food or drink any other liquids during the entire period in which they are drinking the contrast. Mix 1 bottle (50 mL) of Omnipaque 350 with 1 liter (1,000 mL) non-carbonated beverage (preferably water). Close cover and shake vigorously and then refrigerate, if desired. Dispose of any excess preparation in a sink. Properly dispose of container., Routine 729 (Given - Provider: Yasmeen Woodall RN) iohexol (OMNIPAQUE) radiology oral prep (50 mL of oral contrast) (COMPLETED)(Linked Group 1) 240 mL, Oral, ONCE, 1 dose, On Wed05/14/17 at 0830, 8 ounce cup = 240 mL of contrast 2 hours before scan as tolerated. The patient should not eat food or drink any other liquids during the entire period in which they are drinking the contrast. Mix 1 bottle (50 mL) of Omnipaque 350 with 1 liter (1,000 mL) non-carbonated beverage (preferably water). Close cover and shake vigorously and then refrigerate, if desired. Dispose of any excess preparation in a sink. Properly dispose of container., Routine 929 (Given - Provider: Selma Torres RN) iohexol (OMNIPAQUE) radiology oral prep (50 mL of oral contrast) (COMPLETED)(Linked Group 1) 240 mL, Oral, ONCE, 1 dose, On Wed05/14/17 at 0930, 8 ounce cup = 240 mL of contrast 1 hours before scan as tolerated. The patient should not eat food or drink any other liquids during the entire period in which they are drinking the contrast. Mix 1 bottle (50 mL) of Omnipaque 350 with 1 liter (1,000 mL) non-carbonated beverage (preferably water). Close cover and shake vigorously and then refrigerate, if desired. Dispose of any excess preparation in a sink. Properly dispose of container., Routine 956 (Given - Provider: Selma Torres RN) iohexol (OMNIPAQUE) radiology oral prep (50 mL of oral contrast) (COMPLETED)(Linked Group 1) 240 mL, Oral, ONCE, 1 dose, On Wed05/14/17 at 1000, 8 ounce cup = 240 mL of contrast 20 minutes before scan as tolerated. The patient should not eat food or drink any other liquids during the entire period in which they are drinking the contrast. Mix 1 bottle (50 mL) of Omnipaque 350 with 1 liter (1,000 mL) non-carbonated beverage (preferably water). Close cover and shake vigorously and then refrigerate, if desired. Dispose of any excess preparation in a sink. Properly dispose of container., Routine 1015 (Given - Provider: Selma Torres RN) levETIRAcetam (KEPPRA) tablet 500 mg 500 mg, Oral, 2 TIMES DAILY, First dose on Wed05/11/17 at 2100, Until Discontinued, Routine 0842 (Given - Provider: Selma Torres RN)2013 (Given - Provider: Maria E Galvan RN) 0859 (Given - Provider: Nanda Mg, SAVANNA)2015 (Given - Provider: Rosita Aranda RN) 0835 (Given - Provider: Nancy Ahumada, SAVANNA) levothyroxine (SYNTHROID) tablet 88 mcg 88 mcg, Oral, DAILY, First dose on Wed05/12/17 at 0900, Until Discontinued, Routine 0841 (Given - Provider: Selma Torres RN) 0859 (Given - Provider: Nanda Mg, SAVANNA) 0835 (Given - Provider: Nancy Ahumada, SAVANNA) magnesium sulfate 2 g in sterile water 50 mL (COMPLETED) 2 g, Intravenous, ONCE, 1 dose, On Wed05/14/17 at 1515, Administer over 120 Minutes 1636 (New Bag - Provider: Selma Torres RN - Comment: given after last run of potassium complete)1836 (Stopped - Provider: Selma Torres RN) magnesium sulfate 2 g in sterile water 50 mL (COMPLETED) 2 g, Intravenous, ONCE, 1 dose, On Wed05/16/17 at 1000, Administer over 120 Minutes 1002 (New Bag - Provider: Nancy Ahumada RN)1202 (Stopped - Provider: Nancy Ahumada RN) mycophenolate (CELLCEPT) capsule 250 mg 250 mg, Oral, 2 TIMES DAILY, First dose (after last modification) on Wed05/12/17 at 2100, Until Discontinued, DO NOT CRUSH OR OPEN Administer to patient on empty stomach (1 hour before or two hours after a meal)., Routine 0843 (Given - Provider: Selma Torres, SAVANNA)2013 (Given - Provider: Maria E Galvan RN) 09 (Given - Provider: Nanda Mg, SAVANNA)2016 (Given - Provider: Rosita Aranda, SAVANNA) 0835 (Given - Provider: Nancy Ahumada RN) pantoprazole (PROTONIX) injection 40 mg 40 mg, Intravenous, 2 TIMES DAILY, First dose on Wed05/12/17 at 0030, Until Discontinued 0844 (Given - Provider: Selma Torres RN)2014 (Given - Provider: Maria E Galvan RN) 09 (Given - Provider: Nanda Mg RN)2016 (Given - Provider: Rosita Aranda RN) 0835 (Given - Provider: Nancy Ahumada RN) potassium chloride 10 mEq in 100 mL (COMPLETED) 10 mEq, Intravenous, EVERY HOUR, 5 doses, First dose on Wed05/14/17 at 0900, Last dose on Wed05/14/17 at 1300, Administer over 60 Minutes, Warning Vesicant/Irritant Medication 0846 (New Bag - Provider: Selma Torres RN)1015 (Stopped - Provider: Selma Torres RN)1111 (New Bag - Provider: Selma Torres RN)1159 (Stopped - Provider: Selma Torres RN)1218 (New Bag - Provider: Nanda Mg RN)1327 (Restarted - Provider: Nanda Mg, SAVANNA)1332 (New Bag - Provider: Nanda Mg, SAVANNA)1359 (Stopped - Provider: Nanda Mg, SAVANNA)1503 (New Bag - Provider: Nanda Mg RN - Comment: dose retimed d/t proc;)1603 (Stopped - Provider: Selma Torres RN) potassium chloride 10 mEq in 100 mL (COMPLETED) 10 mEq, Intravenous, EVERY 2 HOURS, 3 doses, First dose on Wed05/14/17 at 2030, Last dose on Wed05/15/17 at 0030, Administer over 60 Minutes, Warning Vesicant/Irritant Medication 2109 (New Bag - Provider: Maria E Galvan RN)2209 (Stopped - Provider: Maria E Galvan RN)2318 (New Bag - Provider: Maria E Galvan RN) 0018 (Stopped - Provider: Maria E Galvan RN)0033 (New Bag - Provider: Maria E Galvan, RN)0133 (Stopped - Provider: Maria E Galvan RN) sodium bicarbonate tablet 1,300 mg 1,300 mg, Oral, 3 TIMES DAILY, First dose on Wed05/12/17 at 1500, Until Discontinued, Routine 0842 (Given - Provider: Selma Torres RN)1501 (Given - Provider: Nanda Mg RN)2014 (Given - Provider: Maria E Galvan RN) 0858 (Given - Provider: Nanda Mg, SAVANNA)1515 (Given - Provider: Nanda Mg, SAVANNA)2016 (Given - Provider: Rosita Aranda RN) 0835 (Given - Provider: Nancy Ahumada RN) sodium chloride 0.9 % flush 5 mL 5 mL, Intravenous, 2 TIMES DAILY, First dose on Wed05/11/17 at 2100, Until Discontinued, Routine 0844 (Given - Provider: Selma Torres RN)2014 (Given - Provider: Maria E Galvan RN) 0900 (Given - Provider: Nanda Mg, SAVANNA)2017 (Given - Provider: Rosita Aranda RN) 0836 (Given - Provider: Nancy Ahumada, SAVANNA) tacrolimus (PROGRAF) capsule 1 mg 1 mg, Oral, 2 TIMES DAILY, First dose on Wed05/11/17 at 2100, Until Discontinued, Routine 0843 (Given - Provider: Selma Torres RN)2013 (Given - Provider: Maria E Galvan RN) 0859 (Given - Provider: Nanda Mg RN)2015 (Given - Provider: Rosita Aranda RN) 0842 (Given - Provider: Nancy Ahumada, SAVANNA) warfarin (COUMADIN) daily order reminder(Linked Group 2) Oral, EVERY 24 HOURS, First dose (after last modification) on Mariza 05/13/17 at 1500, Until Discontinued, Pharmacist-managed warfarin, Medication Name: Warfarin, Hospitalist Service? Yes, Treatment Plan: Continuation of Therapy, Indication for Anticoagulation: Deep Vein Thrombosis, INR Goal Range: 2-3, Anticipated Duration of Therapy: Indefinite 1500 (Dose held per treatment team - Provider: Selma Torres, SAVANNA) 1500 (Dose held per treatment team - Provider: Nanda Mg, RN) Continuous Medication Order 05/14/2017 05/15/2017 05/16/2017 dextrose 5% and sodium chloride 0.45% infusion (CANCELED) 125 mL/hr, Intravenous, CONTINUOUS, Starting on Wed05/12/17 at 1115, Until 05/15/17 at 1426 0339 (New Bag - Provider: Yasmeen Woodall RN)0900 (Rate/Dose Verify - Provider: Selma Torres, SAVANNA)1904 (New Bag - Provider: Selma Torres RN) 0529 (New Bag - Provider: Maria E Galvan RN)1500 (Stopped - Provider: Nanda Mg, SAVANNA) PRN Medication Order 05/14/2017 05/15/2017 05/16/2017 acetaminophen (TYLENOL) tablet 1,000 mg 1,000 mg, Oral, EVERY 8 HOURS PRN, Starting on Wed05/12/17 at 1000, Until 05/16/17 at 1545, Pain, Maximum dose of acetaminophen is 4000 mg from all sources in 24 hours., Routine lidocaine (XYLOCAINE) 10 mg/mL (1 %) injection 3 mg 3 mg (0.3 mL), Subcutaneous, ONCE PRN, 1 dose, Starting on Wed05/11/17 at 1951, Until 05/16/17 at 1545, for discomfort with PIV insertion, Routine ondansetron (ZOFRAN) injection 4 mg 4 mg, Intravenous, EVERY 8 HOURS PRN, Starting on Wed05/11/17 at 2359, Until Wed05/16/17 at 1545, Nausea, Routine 0205 (Given - Provid er: Rosita Aranda RN) sodium chloride 0.9 % flush 5-20 mL 5-20 mL, Intravenous, EVERY 1 MIN PRN, Starting on 10/31/17 at 1951, Until 05/16/17 at 1545, flush, Flush pertains to all indwelling lines. Flush per protocol found in the job aid using the link provided on this medication record., Routine Linked Groups Order Group 1: iohexol (OMNIPAQUE) radiology oral prep (50 mL of oral contrast) (COMPLETED)Jump to med 240 mL, Oral, ONCE, 1 dose, On Wed05/14/17 at 0730, 8 ounce cup = 240 mL of contrast 3 hours before scan as tolerated. The patient should not eat food or drink any other liquids during the entire period in which they are drinking the contrast. Mix 1 bottle (50 mL) of Omnipaque 350 with 1 liter (1,000 mL) non-carbonated beverage (preferably water). Close cover and shake vigorously and then refrigerate, if desired. Dispose of any excess preparation in a sink. Properly dispose of container., Routine Followed by iohexol (OMNIPAQUE) radiology oral prep (50 mL of oral contrast) (COMPLETED)Jump to med 240 mL, Oral, ONCE, 1 dose, On Wed05/14/17 at 0830, 8 ounce cup = 240 mL of contrast 2 hours before scan as tolerated. The patient should not eat food or drink any other liquids during the entire period in which they are drinking the contrast. Mix 1 bottle (50 mL) of Omnipaque 350 with 1 liter (1,000 mL) non-carbonated beverage (preferably water). Close cover and shake vigorously and then refrigerate, if desired. Dispose of any excess preparation in a sink. Properly dispose of container., Routine Followed by iohexol (OMNIPAQUE) radiology oral prep (50 mL of oral contrast) (COMPLETED)Jump to med 240 mL, Oral, ONCE, 1 dose, On Wed05/14/17 at 0930, 8 ounce cup = 240 mL of contrast 1 hours before scan as tolerated. The patient should not eat food or drink any other liquids during the entire period in which they are drinking the contrast. Mix 1 bottle (50 mL) of Omnipaque 350 with 1 liter (1,000 mL) non-carbonated beverage (preferably water). Close cover and shake vigorously and then refrigerate, if desired. Dispose of any excess preparation in a sink. Properly dispose of container., Routine Followed by iohexol (OMNIPAQUE) radiology oral prep (50 mL of oral contrast) (COMPLETED)Jump to med 240 mL, Oral, ONCE, 1 dose, On 05/14/17 at 1000, 8 ounce cup = 240 mL of contrast 20 minutes before scan as tolerated. The patient should not eat food or drink any other liquids during the entire period in which they are drinking the contrast. Mix 1 bottle (50 mL) of Omnipaque 350 with 1 liter (1,000 mL) non-carbonated beverage (preferably water). Close cover and shake vigorously and then refrigerate, if desired. Dispose of any excess preparation in a sink. Properly dispose of container., Routine Group 2: warfarin (COUMADIN) daily order reminderJump to med Oral, EVERY 24 HOURS, First dose (after last modification) on Mariza 05/13/17 at 1500, Until Discontinued, Pharmacist-managed warfarin, Medication Name: Warfarin, Hospitalist Service? Yes, Treatment Plan: Continuation of Therapy, Indication for Anticoagulation: Deep Vein Thrombosis, INR Goal Range: 2-3, Anticipated Duration of Therapy: Indefinite And Consult to Pharmacy (CANCELED) Routine, Pharmacy to review patient meds? No, Check for drug interactions? No, Reason for Consult? Pharmacist Managed Warfarin, Medication Name: Warfarin, Pharmacist to dose TPN? No documented in this encounter Care Teams Technical Service Rep Relationship Specialty Start Date End Date Carroll Fuentes DO [address] [place] [address] PCP - General 09/23/11 10/20/22 documented as of this encounter
--- OUTSIDE RECORDS SUMMARY | 2024-04-22 11:10 | XMS_ITS | Encounter Summary ---
Author Organization [facility] Address 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; Gastrointestinal hemorrhage, unspecified gastrointestinal hemorrhage type; Left renal mass; Bradycardia; Hypertension, unspecified type; Renal mass Social History Tobacco Use Types [...] Sign Reading Time Taken Comments Blood Pressure 101/68 05/19/2017 11:02 AM EST Pulse 47 05/19/2017 11:02 AM EST Temperature 36.7 ??C (98 ??F) 05/19/2017 11:02 AM EST Respiratory Rate 12 05/19/2017 11:02 AM EST Oxygen Saturation 99% 05/19/2017 11:02 AM EST Inhaled Oxygen Concentration - - Weight 75.3 kg (166 lb) 05/19/2017 11:02 AM EST Height - - Body Mass Index 23.82 05/11/2017 6:50 PM EDT documented in this encounter Progress Notes * Crystal Brown CMA - 05/19/2017 11:20 AM EST Confirmed patient's last name and Reviewed tobacco use, all allergies and meds, dose and frequency. Taking Protonix 40mg once daily, missed all meds this past Wednesday (no know reason why); otherwise he does not miss any does. Needs toreview meds with nurse, when to take what meds. No additional OTC meds, nutritional or herbal supplements. Should he take [place] supplement? Reviewed education tab. Reviewed immunizations; flu shot done in March at [facility] in [facility]. Doing much better!! Still a little blue haze * Ministerio Fontana DO - 05/19/2017 11:20 AM EST [facility] Transplant Nephrology Follow Up ? Date: 05/19/2017 Patient: Adama Ram Transplant Date: 11/26/02 ? Transplant organ/Indication: ??Kidney / IgA nephropathy, Prograf toxicity ? Transplant ID:??Mr. Adama Ram is a 55 y.o. male who is Status Post Kidney transplantation on 11/26/02. Post-op course was significant for delayed graft function, recurrent IgA nephropathy and Prograf toxicity, and the requirement of adjusting his pre-existing anticonvulsants. Patient was initially referred by his PCP - Dr. Fuentes. Patient is out 14 years from transplant. He had his left armAVF taken down due to massive size, and increased risk for high output CHF.Patient presents to Transplant Medicine Clinic for acute follow-up after recent hospitalization ? Interim Hx: Patient was just discharged from [facility] on 05/16 after recent TRISTIAN, Upper GI Bleed and diagnosis of malignant mass in left [place] kidney. Patient describes feeling better since being discharge. Patient denies any recurrent episodes of hematemesis, and Hgb was 9.1 this AM. Patient remains on PPI BID. Patient renal graft function has plateaued --> with serum Cr of 2.87mg/dL this AM. Patient remains on tacrolimus and cellcept (but cellcept dosing was decreased during hospitalization). Patient is compliant with his medication regimen. Prior to recent admission, patient had experienced an approx 20lb weight loss (unintentional), and patient had CT of abdomen and pelvis performed while inpatient. Imaging showed several large [place] renal masses --> that were concerning for RCC or metastatic lesions. Patient is scheduled to be seen by urology this afternoon. Patient denies any CP, SOB, TORRES or palpitations. Patient denies fever/ chills and denies any N/V/D or change in PO intake. ?? Healthcare maintenance for a transplant recipient: Immunizations [...] for diabetics, every 5 for non diabetics [place] kidney ultrasound looking for renal cell CA, [...] negative ? Medications: Current Outpatient Prescriptions: ??? levETIRAcetam (KEPPRA) 500 mg Tablet, Take 500 mg by mouth 2 times daily. Take 500 mg in the morning and 1,000 mg at night., Disp: , Rfl: ??? pantoprazole (PROTONIX) 20 mg Tablet, Delayed Release (E.C.), Take 40 mg by mouth daily., Disp:, Rfl: ??? mycophenolate (CELLCEPT) 250 mg Capsule, Take 1 capsule by mouth 2 times daily. Kidney Transplant Z94.0. Transplant Date; 11-26-02, Disp: 180 capsule, Rfl: 11 ??? warfarin (COUMADIN) 5 mg Tablet, Take 1 tablet (5 mg) by mouth daily., Disp: 60 tablet, Rfl: 11 ??? sodium bicarbonate 650 mg Tablet, Take 1 tablet by mouth 2 times daily., Disp: 60 tablet, Rfl: 0 ??? hydrALAZINE (APRESOLINE) 50 mg Tablet, Take 1 tablet by mouth 2 times daily., Disp: 180 tablet,Rfl: 3 ??? CARTIA XT 120 mg Capsule, Sust. Release 24 hr, take 1 capsule by mouth once daily, Disp: 90 capsule, Rfl: 0 ??? allopurinol (ZYLOPRIM) 100 mg Tablet, Take 1 and 1/2 tablet daily., Disp: 45 tablet, Rfl: 11 ??? tacrolimus (PROGRAF) 1 mg Capsule, Take 1 capsule twice daily. Kidney transplant 11/26/2002. ICDcode Z94.0, Disp: 60 capsule, Rfl: 11 ??? multivitamin Capsule, Take 1 capsule by mouth daily., Disp: , Rfl: ??? acetaminophen (TYLENOL) 500 mg Tablet, Take 2 tablets by mouth every 8 hours., Disp: 30 tablet,Rfl: 1 ??? levothyroxine (SYNTHROID) 88 mcg tablet, Take 88 mcg by mouth daily., Disp: , Rfl: ??? metoprolol tartrate (LOPRESSOR) 50 mg tablet, Take 50 mg by mouth 3 times daily., Disp: , Rfl: Allergies / ADRs: ? Allergies Allergen Reactions ??? Benazepril Hcl ? Codeine Other (See Comments) ? Patient does not know reaction ??? Hydrochlorothiazide ? Pollen Extracts ? Sneezing/runny nose ? PHYSICAL EXAM: Vital Signs Temp: 36.7 ??C (98 ??F) Temp Source: Oral Heart Rate: (!) 47 Resp: 12 BP: 101/68 Patient Position: Sitting SpO2: 99 % ?? Gen - AAO x [...] cyanosis. No dependent edema. ? Labs/ Imaging: Lab Results Component Value Date WBC 4.1 05/19/2017 HGB 9.1 (L) 05/19/2017 HCT 28.0 (L) 05/19/2017 MCV 92.1 05/19/2017 PLATELET 217 05/19/2017 Lab Results Component Value Date NA 142 05/19/2017 K 4.0 05/19/2017 CL 106 05/19/2017 CO2 23 05/19/2017 BUN 32 (H) 05/19/2017 CREATININE 2.87 (H) 05/19/2017 GLUCOSE 94 05/19/2017 GLUCFASTING 100 (H) 11/26/2016 CALCIUM 8.1 (L) 05/19/2017 ESTGFR 23 (L) 05/19/2017 Lab Results Component Value Date ALT 10 05/19/2017 AST 13 05/19/2017 ALKPHOS 115 05/19/2017 BILITOT 0.3 05/19/2017 BILIDIR 0.2 05/15/2017 ALBUMIN 3.4 05/19/2017 PROT 5.7 (L) 05/19/2017 Lab Results Component Value Date PTH 121 (H) 11/26/2016 CALCIUM 8.1 (L) 05/19/2017 PHOS 3.2 05/19/2017 Lab Results Component Value Date URICACID 4.6 05/19/2017 Component Value Date/Time SPGRAVITYUA 1.014 05/19/2017 1044 PHUADIP 5.0 05/19/2017 1044 PROTEINUADIP 30 (A) 05/19/2017 1044 GLUCOSEU Negative 05/19/2017 1044 KETONESUA Negative 05/19/2017 1044 UROBILIUADIP Normal 05/19/2017 1044 BLOODUADIP Negative 05/19/2017 1044 NITRATEUA Negative 05/19/2017 1044 LEUKOESTERUA Negative 05/19/2017 1044 WBCUA 1 05/19/2017 1044 BILIRUBINUA Negative 05/19/2017 1044 UPC 0.5 ? Impression/ Plan: Mr. Ram is a 55 yr old gentleman w/ hx of kidney transplant who presents to transplant clinic for f/u after recent hospitalization ? 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 Post-Transplant Course complicated by delayed graft function, recurrent IgA and prograf toxicity -Serum creatinine has trended up, but appears to have plateaued after discharge --> as 2.87mg/dLthis AM -stable proteinuria UPC 0.5gm ? Immunosuppression: -patient is consistent/ compliant with his immunosuppressive regimen -Prograf 1mg/1mg -Cellcept 250mg PO BID -most recent prograf trough was 5.2 this AM Left [place] Renal Mass: -concern for RCC v metastatic disease -scheduled for appointment with urology this afternoon Upper GI Bleed: -Hgb trending up --> was 9.1 this AM -patient remains on BID PPI ? PO4/Mg: -controlled, at goal, WNL on labs this AM ? Hypertension: -controlled at goal -Continue Hydralazine, Diltiazem, Metoprolol Bradycardia: -decreased metoprolol from 50mg --> 25mg PO TID ?? Metabolic Acidosis: -serum bicarb improved to 23 this AM -continue sodium bicarbonate PO ? Follow-up: Will have patient RTC based on urology and hematology/ oncology recommendations re: renal mass I reviewed all of the above findings and assessment of Dr. Fontana edited the above note to reflect my assessment and examination and formulated the recommendations which accurately reflect mine. * Anup Hawkins MD - 05/19/2017 11:20 AM EST See addended note by Ministerio Fontana DO documented in this encounter Plan of Treatment Not on file documented as of this encounter Results * (ABNORMAL) Urinalysis with reflex Culture (05/19/2017 10:44 AM EST) Glucose, Urine Dipstick Negative Negative mg/dL [facility] Protein, Urine Dipstick 30(A) Negative mg/dL [facility] Bilirubin, Urine Dipstick Negative Negative mg/dL [facility] Comment: Clinical correlation required for positive Urine Bilirubin results as false positive may occur with some drugs and drug related products. If a false positive is suspected a serum total bilirubin should be considered if clinically indicated. Urobilinogen, Urine Dipstick Normal Normal mg/dL [facility] pH, Urn (dipstick) 5.0 5.0 - 8.0 [facility] Blood, Urine Dipstick Negative Negative mg/dL [facility] Ketone, Urine Dipstick Negative Negative mg/dL [facility] Nitrite, Urine Dipstick Negative Negative [facility] Leukocytes, Urine Dipstick Negative Negative [facility] Appearance, Urine Dipstick Clear Clear [facility] Specific [place] Urine Automated 1.014 1.002 - 1.030 [facility] Color, Urine Dipstick Yellow Yellow [facility] Reflex to Culture No [facility] Urine specimen obtained by clean catch procedure (specimen) 05/19/2017 10:44 AM EST 05/19/2017 10:49 AM EST Narrative Resulting Agency Comment Spec In Lab Anup Hawkins MD URINE ORDERABLES Performing Organization Address [facility] Co de Phone Number [facility] [place] [address] * (ABNORMAL) Protein/Creatinine Ratio, urine (05/19/2017 10:44 AM EST) Creatinine, Urine 100 mg/dL [facility] Protein, Urine 46(H) 0 - 12 mg/dL [facility] Protein / Creatinine Ratio, Urine 0.[address] [facility] Urine specimen (specimen) 05/19/2017 10:44 AM EST 05/19/2017 10:49 AM EST Narrative Resulting Agency Comment Spec In Lab Anup Hawkins MD URINE ORDERABLES Performing Organization Address [facility] Co de Phone Number [facility] [place] [address] * Gold Tube HOLD (05/19/2017 10:43 AM EST) Gold Hold Sample in lab. [facility] Blood specimen (specimen) 05/19/2017 10:43 AM EST 05/19/2017 10:55 AM EST Anup Hawkins MD CHEMISTRY ORDERAB LES Performing Organization Address [facility] Co de Phone Number [facility] [place] [address] * Lavender Tube HOLD (05/19/2017 10:43 AM EST) Lavender Hold Sample in lab. [facility] Blood specimen (specimen) 05/19/2017 10:43 AM EST 05/19/2017 10:55 AM EST Anup Hawkins MD HEMATOLOGY ORDERA BLES Performing Organization Address [facility] Co de Phone Number [facility] [place] [address] * Uric acid (05/19/2017 10:43 AM EST) Uric Acid 4.6 3.5 - 8.5 mg/dL [facility] Blood specimen (specimen) 05/19/2017 10:43 AM EST 05/19/2017 10:55 AM EST Narrative Resulting Agency Comment Spec In Lab Anup Hawkins MD CHEMISTRY ORDERAB LES Performing Organization Address [facility] Phone Number [facility] [address] * Tacrolimus level (05/19/2017 10:43 AM EST) Tacrolimus 5.2 ng/mL [facility] Comment: Trough [...] investigational or for research. Blood specimen (specimen) 05/19/2017 10:43 AM EST 05/19/2017 1:28 PM EST Narrative Resulting Agency Comment Spec In Lab Anup Hawkins MD CHEMISTRY ORDERAB LES Performing Organization Address [facility] Co de Phone Number [facility] [place] [address] * (ABNORMAL) Reticulocyte Count (05/19/2017 10:43 AM EST) Reticulocyte % 2.4 0.7 - 2.6 % [facility] Retic Abs # 0.070 0.030 - 0.120 x10(6)/mcL [facility] Immature Retic% 24.8(H) 0.0 - 15.6 % [facility] Reticulated Hgb 26.2(L) 31.3 - 40.[address] [facility] Blood specimen (specimen) 05/19/2017 10:43 AM EST 05/19/2017 10:55 AM EST Narrative Resulting Agency Comment Spec In Lab Anup Hawkins MD HEMATOLOGY ORDERA BLES Performing Organization Address [facility] Co de Phone Number [facility] [place] [address] * Phosphorus (05/19/2017 10:43 AM EST) Phosphorus 3.2 2.5 - 4.5 mg/dL [facility] Blood specimen (specimen) 05/19/2017 10:43 AM EST 05/19/2017 10:55 AM EST Narrative Resulting Agency Comment Spec In Lab Anup Hawkins MD CHEMISTRY ORDERAB LES Performing Organization Address [facility] Co de Phone Number [facility] [place] [address] * (ABNORMAL) Magnesium (05/19/2017 10:43 AM EST) Magnesium 0.66(L) 0.69 - 1.07 mmol/L [facility] Blood specimen (specimen) 05/19/2017 10:43 AM EST 05/19/2017 10:55 AM EST Narrative Resulting Agency Comment Spec In Lab Anup Hawkins MD CHEMISTRY ORDERAB LES Performing Organization Address [facility] Co de Phone Number [facility] [place] [address] * (ABNORMAL) Comprehensive metabolic panel (non-fasting) (05/19/2017 10:43 AM EST) Glucose 94 65 - 199 mg/dL [facility] Comment:Diabetes: >=200 mg/d L plus symptoms Blood Urea Nitrogen 32(H) 10 - 20 mg/dL [facility] Creatinine 2.87(H) 0.80 - 1.50 mg/dL [facility] Sodium 142 135 - 145 mmol/L [facility] Potassium 4.0 3.5 - 5.0 mmol/L [facility] Comment: Please note: ??Patients with WBC >100,000 may have falsely elevated Potassium levels. ??For accurate Potassium quantification in these patients send serum separator tube (gold top) for subsequent determinations. ??Contact the Clinical Chemistry Laboratory if there are any questions. Chloride 106 98 - 107 mmol/L [facility] Carbon Dioxide 23 22 - 31 mmol/L [facility] Anion Gap 13 5 - 15 mmol/L [facility] Calcium 8.1(L) 8.5 - 10.5 mg/dL [facility] Protein, Total 5.7(L) 6.1 - 8.0 gm/dL [facility] Albumin 3.4 3.2 - 5.2 gm/dL [facility] Aspartate Aminotransferase 13 0 - 39 unit/L [facility] Alanine Aminotransferase 10 0 - 55 unit/L [facility] Alkaline Phosphatase 115 40 - 120 unit/L [facility] Bilirubin, Total 0.3 0.2 - 1.3 mg/dL [facility] Est Glomerular Filtration Rate 23(L) >=60 [facility] Comment: The reported eGFR should be multiplied by 1.2 for patients. The MDRD is not an appropriate measure of renal function for patients with body mass extremes or in patients with acute kidney failure. http://[employer].Jamalon/DHnkdep http://[employer]/DHMCnkf Blood specimen (specimen) 05/19/2017 10:43 AM EST 05/19/2017 10:55 AM EST Narrative Resulting Agency Comment Spec In Lab Anup Hawkins MD CHEMISTRY ORDERAB LES Performing Organization Address [facility] Co de Phone Number [facility] [place] [address] * Cholesterol, total (05/19/2017 10:43 AM EST) Cholesterol, Total 82 <=239 mg/dL [facility] Lipid Interpretation See Note [facility] Comment: Lipid management should be guided by a patient? s ASCVD risk, goals and preferences. ACC/AHA Guidelines recommend high intensity statin if clinical ASCVD or LDL greater than or equal to 190 mg/dL. http://[employer].com/ISI-EQQ-Ssvawzzwm Adults aged 40-75 with LDL 70-189 mg/dL should have their 10 year ASCVD risk estimated with the ACC/AHA ASCVD risk auto body estimator http://tools.acc.org/JMPSL-Wglh-Lbungxaez/ Statin should be discussed if risk greater [...] of ASCVD risk reduction. Blood specimen (specimen) 05/19/2017 10:43 AM EST 05/19/2017 10:55 AM EST Narrative Resulting Agency Comment Spec In Lab Anup Hawkins MD CHEMISTRY ORDERAB LES Performing Organization Address City/[facility]/ZIP Co de Phone Number [facility] [place] [address] documented in this encounter Visit Diagnoses Diagnosis Kidney replaced by transplant [facility] current use of immunosuppressive drug Gastrointestinal hemorrhage, unspecified gastrointestinal hemorrhage type Left renal mass Unspecified disorder of kidney and ureter Bradycardia Other specified cardiac dysrhythmias Hypertension, unspecified type Renal mass Unspecified disorder of kidney and ureter documented in this encounter Care Teams Ticket Maker Relationship Specialty Start Date End Date Alfredo, Carroll, DO [address] [place] [address] PCP - General 09/23/11 10/20/22 documented as of this encounter
--- OUTSIDE RECORDS SUMMARY | 2024-04-22 11:10 | XMS_ITS | Encounter Summary ---
Author Organization [facility] [place] [address] Care Team Providers Care Fire Control Mechanic Name Role Phone AlfredoCarroll geiger Primary Care Provider [phone] Encounter Details Date Type Department Care Team (Latest Contact Info) Description 05/19/2017 10:20 AM EST Laboratory Appointment Lab [address] [place] [address] Kidney replaced by transplant Social History Tobacco [...] Associated Diagnosis Comments URINALYSIS MICROSCOPIC EXAM STAT 05/19/2017 10:44 AM EST PROTEIN/CREATININE RATIO, URINE STAT 05/19/2017 10:44 AM EST Kidney replaced by transplant URINALYSIS WITH REFLEX CULTURE STAT 05/19/2017 10:44 AM EST Kidney replaced by transplant HEMOGRAM STAT 05/19/2017 10:43 AM EST Kidney replaced by transplant DIFFERENTIAL, AUTOMATED STAT 05/19/2017 10:43 AM EST Kidney replaced by transplant GOLD TUBE HOLD STAT 05/19/2017 10:43 AM EST Kidney replaced by transplant LAVENDER TUBE HOLD STAT 05/19/2017 10 :43 AM EST Kidney replaced by transplant TACROLIMUS LEVEL STAT 05/19/2017 10:4 3 AM EST Kidney replaced by transplant RETICULOCYTE COUNT STAT 05/19/2017 10 :43 AM EST Kidney replaced by transplant CBC (WITH DIFF) STAT 05/19/2017 10:43 AM EST Kidney replaced by transplant URIC ACID STAT 05/19/2017 10:43 AM EST Kidney replaced by transplant PHOSPHORUS STAT 05/19/2017 10:43 AM EST Kidney replaced by transplant MAGNESIUM STAT 05/19/2017 10:43 AM EST Kidney replaced by transplant CHOLESTEROL, TOTAL STAT 05/19/2017 10 :43 AM EST Kidney replaced by transplant COMPREHENSIVE METABOLIC PANEL STAT 05/19/2017 10:43 AM EST Kidney replaced by transplant documented in this encounter Results * Urinalysis Microscopic Exam (05/19/2017 10:44 AM EST) RBC, Urine <1 0 - 3 /HPF [facility] WBC, Urine 1 0 - 3 /HPF [facility] Squamous Epithelial Cells Raw Data, Urine <1 <=4 /HPF [facility] Urine specimen obtained by clean catch procedure (specimen) 05/19/2017 10:44 AM EST 05/19/2017 10:49 AM EST Narrative Resulting Agency Comment Spec In Lab Anup Hawkins MD URINE ORDERABLES [facility] [place] [address] * (ABNORMAL) Urinalysis with reflex Culture (05/19/2017 10:44 AM EST) Glucose, Urine Dipstick Negative Negative mg/dL [facility] Protein, Urine Dipstick 30(A) Negative mg/dL [facility] Bilirubin, Urine Dipstick Negative Negative mg/dL [facility] Comment: Clinical correlation required for positive Urine Bilirubin results as false positive may occur with some drugs and drug related products. If a false positive is suspected a serum total bilirubin should be considered if clinically indicated. Urobilinogen, Urine Dipstick Normal Normal mg/dL [facility] pH, Urn (dipstick) 5.0 5.0 - 8.0 [facility] Blood, Urine Dipstick Negative Negative mg/dL [facility] Ketone, Urine Dipstick Negative Negative mg/dL [facility] Nitrite, Urine Dipstick Negative Negative [facility] Leukocytes, Urine Dipstick Negative Negative [facility] Appearance, Urine Dipstick Clear Clear [facility] Specific [place] Urine Automated 1.014 1.002 - 1.030 [facility] Color, Urine Dipstick Yellow Yellow [facility] Reflex to Culture No [facility] Urine specimen obtained by clean catch procedure (specimen) 05/19/2017 10:44 AM EST 05/19/2017 10:49 AM EST Narrative Resulting Agency Comment Spec In Lab Anup Hawkins MD URINE ORDERABLES [facility] [place] [address] * (ABNORMAL) Protein/Creatinine Ratio, urine (05/19/2017 10:44 AM EST) Creatinine, Urine 100 mg/dL [facility] Protein, Urine 46(H) 0 - 12 mg/dL [facility] Protein / Creatinine Ratio, Urine 0.5 ratio [facility] Urine specimen (specimen) 05/19/2017 10:44 AM EST 05/19/2017 10:49 AM EST Narrative Resulting Agency Comment Spec In Lab Anup Hawkins MD URINE ORDERABLES [facility] [place] [address] * (ABNORMAL) Differential, Automated (05/19/2017 10:43 AM EST) Neutrophil % 71.8 % [facility] Neutrophil Absolute 2.93 1.70 - 6.10 x10(3)/mc L [facility] Lymph % 12.7 % [facility] Lymphocytes Abs 0.5(L) 0.9 - 3.2 x10(3)/mc L [facility] Monocyte % 12.7 % [facility] Monocyte Abs 0.5 0.3 - 0.9 x10(3)/mc L [facility] Eos % 2.4 % [facility] Eosinophils Abs 0.1 0.0 - 0.4 x10(3)/mc L [facility] Basophil % 0.2 % [facility] Baso Absolute 0.0 0.0 - 0.1 x10(3)/mc L [facility] Immature Gran % 0.20 % [facility] Comment: Immature granulocytes(IG's)percentage and absolute count will include metamyelocytes, myelocytes, and promyelocytes. Blood smears from CBCs yielding IG's will be scanned manually for concordance. If this scan disagrees with the automated IG or if promyelocytes are noted, a manual differential will be performed. Immature Gran Absolute 0.01 0.00 - 0.04 x10(3)/mc L [facility] Blood specimen (specimen) 05/19/2017 10:43 AM EST 05/19/2017 10:55 AM EST Narrative Resulting Agency Comment Spec In Lab Anup Hawkins MD HEMATOLOGY ORDERA BLES [facility] [place] [address] * (ABNORMAL) Hemogram (05/19/2017 10:43 AM EST) White Blood Cell 4.1 4.0 - 9.5 x10(3)/mc L [facility] Red Blood Cell 3.04(L) 4.58 - 5.54 x10(6)/[facility] Hemoglobin 9.1(L) 13.7 - 16.5 gm/dL [facility] Hematocrit 28.0(L) 40.5 - 48.5 % [facility] Mean Cell Volume 92.1 82.9 - 93.1 [facility] Mean Cell Hemoglobin 29.9 27.5 - 32.1 pg [facility] Mean Cell Hemoglobin Concentration 32.5 32.0 - 35.7 gm/dL [facility] Platelet 217 145 - 357 x10(3)/[facility] RDW Standard Deviation 50.8(H) 36.0 - 45.0 [facility] RDW coefficient of variation 15.8(H) 11.4 - 13.8 % [facility] Mean Platelet Volume 9.9 7.6 - 12.9 [facility] NRBC% auto 0.0 % [facility] NRBC Absolute 0.000 0.000 - 0.000 x10(3)/[facility] Blood specimen (specimen) 05/19/2017 10:43 AM EST 05/19/2017 10:55 AM EST Narrative Resulting Agency Comment Spec In Lab Anup Hawkins MD HEMATOLOGY ORDERA BLES [facility] [place] [address] * Gold Tube HOLD (05/19/2017 10:43 AM EST) Gold Hold Sample in lab. [facility] Blood specimen (specimen) 05/19/2017 10:43 AM EST 05/19/2017 10:55 AM EST Anup Hawkins MD CHEMISTRY ORDERAB LES Performing Organization Address City/[facility]/ZIP Co de Phone Number [facility] [place] [address] * Lavender Tube HOLD (05/19/2017 10:43 AM EST) Lavender Hold Sample in lab. [facility] Blood specimen (specimen) 05/19/2017 10:43 AM EST 05/19/2017 10:55 AM EST Anup Hawkins MD HEMATOLOGY ORDERA BLES Performing Organization Address City/[facility]/ZIP Co de Phone Number [facility] [place] [address] * Uric acid (05/19/2017 10:43 AM EST) Uric Acid 4.6 3.5 - 8.5 mg/dL [facility] Blood specimen (specimen) 05/19/2017 10:43 AM EST 05/19/2017 10:55 AM EST Narrative Resulting Agency Comment Spec In Lab Anup Hawkins MD CHEMISTRY ORDERAB LES Performing Organization Address City/[facility]/ZIP Co de Phone Number [facility] [place] [address] * Tacrolimus level (05/19/2017 10:43 AM EST) Tacrolimus 5.2 ng/mL [facility] Comment: Trough therapeutic: ??5-15 ng/mL Performed by ultra-performance liquid chromatography tandem mass spectrometry (UPLCMS/MS). This test was developed and its performance characteristics determined by [facility]. It has not been cleared [...] MD CHEMISTRY ORDERAB LES Performing Organization Address [facility] de Phone Number [facility] [place] [address] * (ABNORMAL) Reticulocyte Count (05/19/2017 10:43 AM EST) Reticulocyte % 2.4 0.7 - 2.6 % [facility] Retic Abs # 0.070 0.030 - 0.120 x10(6)/mcL [facility] Immature Retic% 24.8(H) 0.0 - 15.6 % [facility] Reticulated Hgb 26.2(L) 31.3 - 40.2 pg [facility] Blood specimen (specimen) 05/19/2017 10:43 AM EST 05/19/2017 10:55 AM EST Narrative Resulting Agency Comment Spec In Lab Anup Hawkins MD HEMATOLOGY ORDERA BLES Performing Organization Address [facility] de Phone Number [facility] [place] [address] * Phosphorus (05/19/2017 10:43 AM EST) Phosphorus 3.2 2.5 - 4.5 mg/dL [facility] Blood specimen (specimen) 05/19/2017 10:43 AM EST 05/19/2017 10:55 AM EST Narrative Resulting Agency Comment Spec In Lab Anup Hawkins MD CHEMISTRY ORDERAB LES [facility] [place] [address] * (ABNORMAL) Magnesium (05/19/2017 10:43 AM EST) Magnesium 0.66(L) 0.69 - 1.07 mmol/L [facility] Blood specimen (specimen) 05/19/2017 10:43 AM EST 05/19/2017 10:55 AM EST Narrative Resulting Agency Comment Spec In Lab Anup Hawkins MD CHEMISTRY ORDERAB LES Performing Organization Address City/[facility]/ZIP Co de Phone Number [facility] [place] [address] * (ABNORMAL) Comprehensive metabolic panel (non-fasting) (05/19/2017 10:43 AM EST) [facility] Glucose 94 65 - 199 mg/dL [facility] Comment:Diabetes: >=200 mg/d L plus symptoms Blood Urea Nitrogen 32(H) 10 - 20 mg/dL [facility] Creatinine 2.87(H) 0.80 - 1.50 mg/dL [facility] Sodium 142 135 - 145 mmol/L [facility] Potassium 4.0 3.5 - 5.0 mmol/L [facility] Comment: Please note: ??Patients with WBC >100,000 may have falsely elevated Potassium levels. ??For accurate Potassium quantification in these patients send serum separator tube (gold top) for subsequent determinations. ??Contact the Clinical Chemistry Laboratory if there are any questions. Chloride 106 98 - 107 mmol/L [facility] Carbon Dioxide 23 22 - 31 mmol/L [facility] Anion Gap 13 5 - 15 mmol/L [facility] Calcium 8.1(L) 8.5 - 10.5 mg/dL [facility] Protein, Total 5.7(L) 6.1 - 8.0 gm/dL [facility] Albumin 3.4 3.2 - 5.2 gm/dL [facility] Aspartate Aminotransferase 13 0 - 39 unit/L [facility] Alanine Aminotransferase 10 0 - 55 unit/L [facility] Alkaline Phosphatase 115 40 - 120 unit/L [facility] Bilirubin, Total 0.3 0.2 - 1.3 mg/dL [facility] Est Glomerular Filtration Rate 23(L) >=60 [facility] Comment: The reported eGFR should be multiplied by 1.2 for patients. The MDRD is not an appropriate measure of renal function for patients with body mass extremes or in patients with acute kidney failure. http://[employer]eli[employer]/DHnkdep http://[employer]eli[employer]/DHMCnkf Blood specimen (specimen) 05/19/2017 10:43 AM EST 05/19/2017 10:55 AM EST Narrative Resulting Agency Comment Spec In Lab Anup Hawkins MD CHEMISTRY ORDERAB LES Performing Organization Address City/State/[facility] Co de Phone Number [facility] [place] [phone] * Cholesterol, total (05/19/2017 10:43 AM EST) Cholesterol, Total 82 <=239 mg/dL [facility] Lipid Interpretation See Note [facility] Comment: Lipid management should be guided by a patient? s ASCVD risk, goals and preferences. ACC/AHA Guidelines recommend high intensity statin if clinical ASCVD or LDL greater than or equal to 190 mg/dL. http://[employer]eli[employer]/GOW-NGZ-Noscdmncu Adults aged 40-75 with LDL 70-189 mg/dL should have their 10 year ASCVD risk estimated with the ACC/AHA ASCVD risk supervisor estimator and drafter http://tools.acc.org/GMGOJ-Uzgs-Baqyrljfi/ Statin should be discussed if risk greater [...] MD CHEMISTRY ORDERAB LES Performing Organization Address City/State/[facility] Co de Phone Number [facility] [place] [address] documented in this encounter Visit Diagnoses Diagnosis Kidney replaced by transplant documented in this encounter Care Teams Fire Control Mechanic Relationship Specialty Start Date End Date Carroll Fuentes DO [address] [place] [address] PCP - General 09/23/11 10/20/22 documented as of this encounter
--- OUTSIDE RECORDS SUMMARY | 2024-04-22 11:11 | XMS_ITS | Encounter Summary ---
Author Organization [facility] [place] [address] Care Team Providers Care Kitchen Porter Name Role Phone Alfredo, Carroll MIX Primary Care Provider [phone] Encounter Details Date Type Department Care Team (Latest Contact Info) Description 11/26/2016 10:25 AM EDT Laboratory Appointment Lab [address] [place] [id number] Anemia of chronic renal failure, stage 3 (moderate); Kidney replaced by transplant Social History Tobacco [...] Name Priority Date/Time Associated Diagnosis Comments PTH STAT 11/26/2016 10:33 AM EDT Kidney replaced by transplant CMP W/FASTING GLUCOSE STAT 11/26/2016 10:33 AM EDT HEMOGRAM STAT 11/26/2016 10:33 AM EDT Kidney replaced by transplant DIFFERENTIAL, AUTOMATED STAT 11/26/2016 10:33 AM EDT Kidney replaced by transplant GOLD TUBE HOLD STAT 11/26/2016 10:33 AM EDT Kidney replaced by transplant LAVENDER TUBE HOLD STAT 11/26/2016 10 :33 AM EDT Kidney replaced by transplant TACROLIMUS LEVEL STAT 11/26/2016 10:3 3 AM EDT Kidney replaced by transplant 1,25-DIHYDROXYCHOLECA LCIFEROL STAT 11/26/2016 10:33 AM EDT Kidney replaced by transplant VITAMIN D, 25-HYDROXY STAT 11/26/2016 10:33 AM EDT Kidney replaced by transplant RETICULOCYTE COUNT STAT 11/26/2016 10 :33 AM EDT Kidney replaced by transplant CBC (WITH DIFF) STAT 11/26/2016 10:33 AM EDT Kidney replaced by transplant URIC ACID STAT 11/26/2016 10:33 AM EDT Kidney replaced by transplant PHOSPHORUS STAT 11/26/2016 10:33 AM EDT Kidney replaced by transplant MAGNESIUM STAT 11/26/2016 10:33 AM EDT Kidney replaced by transplant HEMOGLOBIN A1C STAT 11/26/2016 10:33 AM EDT Kidney replaced by transplant LIPID PANEL (REFLEX DIRECT LDL) STAT 11/26/2016 10:33 AM EDT Kidney replaced by transplant documented in this encounter Results * (ABNORMAL) CMP w/fasting Glucose (11/26/2016 10:33 AM EDT) Glucose Fasting 100(H) 65 - 99 mg/dL [facility] [...] of Diabetes Mellitus, Position Statement from the [place]. ??Diabetes Care, Volume 33, Supplement 1, Jul 2009 Blood Urea Nitrogen 56(H) 10 - 20 mg/dL [facility] Creatinine 2.64(H) 0.80 - 1.50 mg/dL [facility] Comment: Please note that the pediatric reference intervals supplied above were not validated at [facility] [place] [place]. Results from pediatric patients should be interpreted in conjunction to the patient's age, height and muscle mass. Sodium 141 135 - 145 mmol/L [facility] [...] questions. Chloride 111(H) 98 - 107 mmol/L [facility] Carbon Dioxide 14(L) 22 - 31 mmol/L [facility] Anion Gap 16(H) 5 - 15 mmol/L [facility] Calcium 8.4(L) 8.5 - 10.5 mg/dL [facility] Protein, Total 6.6 6.1 - 8.0 gm/dL [facility] Albumin 4.2 3.2 - 5.2 gm/dL [facility] Aspartate Aminotransferase 21 0 - 39 unit/L [facility] Alanine Aminotransferase 13 0 - 55 unit/L [facility] Alkaline Phosphatase 98 40 - 120 unit/L [facility] Bilirubin, Total 0.3 0.2 - 1.3 mg/dL [facility] Bilirubin, Direct 0.1 0.0 - 0.3 mg/dL [facility] Est Glomerular Filtration Rate 25(L) >=60 [facility] Comment: This estimated GFR (eGFR) value was calculated using the MDRD equation which has been validated on patients between the ages of 18 and 70. The MDRD should not be used to assess kidney function in patients < 18 years of age or in patients with extremes of body mass, or in patients with acute kidney failure. This value should be multiplied by 1.2 for patients. For further information please copy and paste the following links into your internet browser. http://N-of-One/DHnkdep http://N-of-One/DHMCnkf Blood specimen (specimen) Venous Draw / Unknown 11/26/2016 10:33 AM EDT 11/26/2016 10:39 AM EDT Narrative Resulting Agency Comment Spec In Lab Anup Hawkins MD CHEMISTRY ORDERAB LES [facility] [place] [address] * (ABNORMAL) Differential, Automated (11/26/2016 10:33 AM EDT) Neutrophil % 69.3 % [facility] Neutrophil Absolute 2.78 1.70 - 6.10 x10(3)/mc L [facility] Lymph % 17.2 % [facility] Lymphocytes Abs 0.7(L) 0.9 - 3.2 x10(3)/mc L [facility] Monocyte % 10.5 % [facility] Monocyte Abs 0.4 0.3 - 0.9 x10(3)/mc L [facility] Eos % 2.0 % [facility] Eosinophils Abs 0.1 0.0 - 0.4 x10(3)/mc L [facility] Basophil % 0.5 % [facility] Baso Absolute 0.0 0.0 - 0.1 x10(3)/ L [facility] Immature [...] Immature Gran Absolute 0.02 0.00 - 0.04 x10(3)/ L [facility] Blood specimen (specimen) 11/26/2016 10:33 AM EDT 11/26/2016 10:39 AM EDT Narrative Resulting Agency Comment Spec In Lab Anup Hawkins MD HEMATOLOGY ORDERA BLES [facility] [place] [address] * (ABNORMAL) Hemogram (11/26/2016 10:33 AM EDT) White Blood Cell 4.0 4.0 - 9.5 x10(3)/[facility] Red Blood Cell 3.11(L) 4.58 - 5.54 x10(6)/mc L [facility] Hemoglobin 9.1(L) 13.7 - 16.5 gm/dL [facility] Hematocrit 28.6(L) 40.5 - 48.5 % [facility] Mean Cell Volume 92.0 82.9 - 93.1 fL [facility] Mean Cell Hemoglobin 29.3 27.5 - 32.1 pg [facility] Mean Cell Hemoglobin Concentration 31.8(L) 32.0 - 35.7 gm/dL [facility] Platelet 185 145 - 357 x10(3)/ L [facility] RDW Standard Deviation 48.4(H) 36.0 - 45.0 fL [facility] RDW coefficient of variation 14.4(H) 11.4 - 13.8 % [facility] Mean Platelet Volume 9.9 7.6 - 12.9 fL [facility] NRBC% auto 0.0 % [facility] NRBC Absolute 0.000 0.000 - 0.000 x10(3)/mc L [facility] Blood specimen (specimen) 11/26/2016 10:33 AM EDT 11/26/2016 10:39 AM EDT Narrative Resulting Agency Comment Spec In Lab Anup Hawkins MD HEMATOLOGY ORDERA BLES Performing Organization Address City/[facility]/ZIP Co de Phone Number [facility] [place] [address] * Gold Tube HOLD (11/26/2016 10:33 AM EDT) Gold Hold Sample in lab. [facility] Blood specimen (specimen) 11/26/2016 10:33 AM EDT 11/26/2016 10:39 AM EDT Anup Hawkins MD CHEMISTRY ORDERAB LES Performing Organization Address [facility] Co de Phone Number [facility] [place] [address] * Lavender Tube HOLD (11/26/2016 10:33 AM EDT) Lavender Hold Sample in lab. [facility] Blood specimen (specimen) 11/26/2016 10:33 AM EDT 11/26/2016 10:39 AM EDT Anup Hawkins MD HEMATOLOGY ORDERA BLES Performing Organization Address City/[facility]/ZIP Co de Phone Number [facility] [place] [address] * Vitamin D, 25-Hydroxy (11/26/2016 10:33 AM EDT) Vitamin D Total 25 OH 33 30 - 100 ng/mL [facility] Comment: Deficient <10 ng/mL Insufficient 10 to 29 ng/mL Sufficient 30 to 100 ng/mL Potential Intoxication >100 ng/mL According to the US National Osteoporosis Foundation, Vitamin D concentrations >30 ng/mL are sufficient to protect bone health. ??The National Kidney Foundation has similarly stated that patients with Vitamin D concentrations <30ng/mL should be considered to be insufficient or deficient. http://N-of-One/nkf-guidelines http://N-of-One/nejm-VitD The IDS iSYS Vitamin D Immunoassay detects both 25-OH Vitamin D2 and 25-OH Vitamin D3, but only a total Vitamin D concentration is reported. Blood specimen (specimen) 11/26/2016 10:33 AM EDT 11/26/2016 1:19 PM EDT Narrative Resulting Agency Comment Spec In Lab Anup Hawkins MD CHEMISTRY ORDERAB LES Performing Organization Address City/[facility]/ZIP Co de Phone Number [facility] [place] [address] * Uric acid (11/26/2016 10:33 AM EDT) Uric Acid 5.3 3.5 - 8.5 mg/dL [facility] Blood specimen (specimen) 11/26/2016 10:33 AM EDT 11/26/2016 10:39 AM EDT Narrative Resulting Agency Comment Spec In Lab Anup Hawkins MD CHEMISTRY ORDERAB LES Performing Organization Address City/[facility]/ZIP Co de Phone Number [facility] [place] [address] * Tacrolimus level (11/26/2016 10:33 AM EDT) Tacrolimus 3.2 ng/mL [facility] Comment: Trough therapeutic: ??5-15 ng/mL Performed by ultra-performance liquid chromatography tandem mass spectrometry (UPLCMS/MS). This test was developed and its performance characteristics determined by [facility]. It has not been cleared or approved by the FDA. The laboratory is regulated under CLIA as qualified to perform high-complexity testing. This test is used for clinical purposes. It should not be regarded as investigational or for research. Blood specimen (specimen) 11/26/2016 10:33 AM EDT 11/26/2016 1:20 PM EDT Narrative Resulting Agency Comment Spec In Lab Anup Hawkins MD CHEMISTRY ORDERAB LES Performing Organization Address [facility] Co de Phone Number [facility] [place] [address] * Reticulocyte Count (11/26/2016 10:33 AM EDT) Reticulocyte % 0.9 0.7 - 2.6 % [facility] Retic Abs # 0.030 0.030 - 0.120 x10(6)/mcL [facility] Immature Retic% 7.6 0.0 - 15.6 % [facility] Reticulated Hgb 33.1 31.3 - 40.2 pg [facility] Blood specimen (specimen) 11/26/2016 10:33 AM EDT 11/26/2016 10:39 AM EDT Narrative Resulting Agency Comment Spec In Lab Anup Hawkins MD HEMATOLOGY ORDERA BLES Performing Organization Address [facility] de Phone Number [facility] [place] [address] * (ABNORMAL) PTH (11/26/2016 10:33 AM EDT) Parathyroid Hormone 121(H) 15 - 65 pg/mL [facility] Blood specimen (specimen) 11/26/2016 10:33 AM EDT 11/26/2016 10:39 AM EDT Narrative Resulting Agency Comment Spec In Lab Anup Hawkins MD CHEMISTRY ORDERAB LES Performing Organization Address [facility] Co de Phone Number [facility] [place] [address] * Phosphorus (11/26/2016 10:33 AM EDT) Phosphorus 4.0 2.5 - 4.5 mg/dL [facility] Blood specimen (specimen) 11/26/2016 10:33 AM EDT 11/26/2016 10:39 AM EDT Narrative Resulting Agency Comment Spec In Lab Anup Hawkins MD CHEMISTRY ORDERAB LES [facility] [place] [address] * Magnesium (11/26/2016 10:33 AM EDT) Magnesium 0.76 0.69 - 1.07 mmol/L [facility] Blood specimen (specimen) 11/26/2016 10:33 AM EDT 11/26/2016 10:39 AM EDT Narrative Resulting Agency Comment Spec In Lab Anup Hawkins MD CHEMISTRY ORDERAB LES Performing Organization Address City/[facility]/ZIP Co de Phone Number [facility] [place] [address] * (ABNORMAL) Lipid Panel (11/26/2016 10:33 AM EDT) Cholesterol, Total 86 <=239 mg/dL [facility] Triglyceride 76 <=199 mg/dL [facility] HDL Cholesterol 22(L) >=40 mg/dL [facility] LDL Cholesterol 49 <=190 mg/dL [facility] Cholesterol/HDL Ratio 3.9 ratio [facility] Lipid Interpretation See Note [facility] Comment: Lipid management should be guided by a patient? s ASCVD risk, goals and preferences. ACC/AHA Guidelines recommend high intensity statin if clinical ASCVD or LDL greater than or equal to 190 mg/dL. http://zePASSurl.com/PKN-TFD-Coynzwzrk Adults aged 40-75 with LDL 70-189 mg/dL should have their 10 year ASCVD risk estimated with the ACC/AHA ASCVD risk weatherization operations manager http://tools.acc.org/YFMMY-Sgjo-Bgckdvmuw/ Statin should be discussed if risk greater [...] of ASCVD risk reduction. Blood specimen (specimen) 11/26/2016 10:33 AM EDT 11/26/2016 10:39 AM EDT Narrative Resulting Agency Comment Spec In Lab Anup Hawkins MD CHEMISTRY ORDERAB LES [facility] [place] [address] * Hemoglobin A1c (11/26/2016 10:33 AM EDT) Hemoglobin A1c 4.8 4.3 - 5.6 % [facility] Comment: Reference Range: 4.3 - 5.6% 5.7 - 6.4% - Increased Risk of Developing Diabetes Mellitus >=6.5% - Consistent with diagnosis of Diabetes Mellitus In the absence of hyperglycemia (i.e. plasma glucose > 200 mg/dL) or classic symptoms of hyperglycemia a repeat measurement of HbA1c should be performed on a separate sample to confirm the diagnosis. Diagnosis and Classification of Diabetes Mellitus, Diabetes Care 2013; 36: Suppl. 1, S67-74 Estimated Average Glucose 91 mg/dL [facility] Comment: eAG equivalents for [...] into estimated average glucose values. ??Diabetes Care 2008:31(8):9076-3104. Blood specimen (specimen) 11/26/2016 10:33 AM EDT 11/26/2016 10:39 AM EDT Narrative Resulting Agency Comment Spec In Lab Anup Hawkins MD CHEMISTRY ORDERAB LES Performing Organization Address City/State/[facility] Co de Phone Number [facility] [place] [address] * 1,25-dihydroxycholecalciferol (11/26/2016 10:33 AM EDT) Vit D 1,25 Dihydroxy (NOVEMBER) 50 18 - 64 pg/mL [facility] Comment: ADDITIONAL INFORMATION This test was developed and its performance characteristics determined by [facility] in a manner consistent with CLIA requirements. This test has not been cleared or approved by the U.S. Food and Drug Administration. Test Performed by: [facility] - [address] [address] Blood specimen (specimen) 11/26/2016 10:33 AM EDT 11/26/2016 12:33 PM EDT Narrative Resulting Agency Comment Spec In Lab Anup Hawkins MD LAB SEND OUT RYAN CALERO [facility] [place] [address] documented in this encounter Visit Diagnoses Diagnosis Anemia of chronic renal failure, stage 3 (moderate) Kidney replaced by transplant documented in this encounter Care Teams Kitchen Porter Relationship Specialty Start Date End Date Carroll Fuentes DO [address] [place] [address] PCP - General 09/23/11 10/20/22 documented as of this encounter
--- OUTSIDE RECORDS SUMMARY | 2024-04-22 11:11 | XMS_ITS | Encounter Summary ---
Author Organization [facility] Address [facility] [address] Care Team Providers Care Case Supervisor Name Role Phone Carroll Fuentes DO Primary Care Provider [phone] Reason for Visit * Reason Comments Medication Refill Encounter Details Date Type Department Care Team (Late st Contact Info) Description 11/03/2016 Refill [place] [address] Anup Hawkins MD [facility] [place] [address] Social History Tobacco Use Types Packs/Day Years [...] on filedocumented in this encounter Care Teams Case Supervisor Relationship Specialty Start Date End Date Carroll Fuentes DO [address] [place] [address] PCP - General 3/14/12 4/11/23 documented as of this encounter
--- OUTSIDE RECORDS SUMMARY | 2024-04-22 11:11 | XMS_ITS | Encounter Summary ---
Author Organization [facility] Address [facility] [place] [address] Care Team Providers Care Supervisor Knitting Name Role Phone Carroll Fuentes DO Primary Care Provider [phone] Encounter Details Date Type Department Care Team (Late st Contact Info) Description 01/21/2017 Telephone Dermatology at [facility] [address] [place] [address] Chanel Smith MD [facility] [place] [address] Social History Tobacco Use Types Packs/Day Years [...] encounter Miscellaneous Notes * Telephone Encounter - Deyvi Pickard - 01/21/2017 2:59 PM EDT Sent rescheduling letter to Mr. Ram for his appointment on 02/18/[address] Chanel Smith, was unable to leave message mailbox is full. documented in this encounter Plan of Treatment Not on file documented as of this encounter Visit Diagnoses Not on filedocumented in this encounter Care Teams Supervisor Knitting Relationship Specialty Start Date End Date Carroll Fuentes DO [address] [place] [address] PCP - General 09/23/11 10/20/22 documented as of this encounter
--- OUTSIDE RECORDS SUMMARY | 2024-04-22 11:11 | XMS_ITS | Encounter Summary ---
Author Organization [facility] [place] [address] Care Team Providers Care Shoe Lay Out Planner Name Role Phone AlfredoCarroll allison Primary Care Provider [phone] Reason for Visit * Reason Onset Date Comments Medication Refill 10/13/2016 Encounter Details Date Type Department Care Team (Late st Contact Info) Description 10/13/2016 [place] [id number] Mirian Acosta CMA Medication Refill Social History Tobacco Use Types [...] encounter Miscellaneous Notes * Telephone Encounter - Mirian Acosta CMA - 10/13/2016 1:06 PM EDT New RX for Keppra 500 MG tablet faxed to requested pharmacy, : [phone] [place], [place] - [address] [place] [address]. documented in this encounter Plan of Treatment Not on file documented as of this encounter Visit Diagnoses Not on filedocumented in this encounter Care Teams Shoe Lay Out Planner Relationship Specialty Start Date End Date Carroll Fuentes DO [address] [facility] [address] [place] [address] PCP - General 09/23/11 10/20/22 documented as of this encounter
--- OUTSIDE RECORDS SUMMARY | 2024-04-22 11:11 | XMS_ITS | Encounter Summary ---
[place] [address] Care Team Providers Care Brazing Machine Operator Automatic Name Role Phone AlfredoCarroll allison Primary Care Provider [phone] Encounter Details Date Type Department Care Team (Latest Contact Info) Description 10/26/2016 11:00 AM EDT Laboratory Appointment Lab [address] [place] [address] H/O kidney transplant Social History Tobacco Use [...] Procedure Name Priority Date/Time Associated Diagnosis Comments CREATININE Routine 10/26/2016 10:20 AM EDT H/O kidney transplant documented in this encounter Results * (ABNORMAL) Creatinine (10/26/2016 10:20 AM EDT) Creatinine 2.33(H) 0.80 - 1.50 mg/dL [facility] Comment: Please note that the pediatric reference intervals supplied above were not validated at [facility]. Results from pediatric patients should be interpreted in conjunction to the patient's age, height and muscle mass. Est Glomerular Filtration Rate 29(L) >=60 [facility] Comment: This estimated GFR (eGFR) value [...] the following links into your internet browser. [email or web address] [email or web address] [email or web address] Biosana/[facility]LEnkf Blood specimen (specimen) 10/26/2016 10:20 AM EDT 10/26/2016 11:06 AM EDT Narrative Resulting Agency Comment Spec In Lab Anup Hawkins MD CHEMISTRY ORDERAB LES [facility] [place] [address] documented in this encounter Visit Diagnoses Diagnosis H/O kidney transplant Kidney replaced by transplant documented in this encounter Care Teams Brazing Machine Operator Automatic Relationship Specialty Start Date End Date Carroll Fuentes DO [address] [place] [address] PCP - General 09/23/11 10/20/22 documented as of this encounter
--- OUTSIDE RECORDS SUMMARY | 2024-04-22 11:11 | XMS_ITS | Encounter Summary ---
Author Organization [facility] [place] [address] Care Team Providers Care Winding Lathe Operator Name Role Phone AlfredoCarroll allison Primary Care Provider [phone] Reason for Visit * Reason Onset Date Comments Medication Refill 03/09/2017 Encounter Details Date Type Department Care Team (Late st Contact Info) Description 03/09/2017 Refill [place] [id number] Crystal Brown CMA S/P kidney transplant Social History Tobacco Use [...] Telephone Encounter - Crystal Brown CMA - 03/09/2017 4:29 PM EDT Received fax requesting renewal on Cellcept 250 mg three capsules twice daily. Vtm.ins.requires new rx after 5 refills.please send new rx.thanks documented in this encounter Plan of Treatment Not on file documented as of this encounter Visit Diagnoses Diagnosis S/P kidney transplant Kidney replaced by transplant documented in this encounter Care Teams Winding Lathe Operator Relationship Specialty Start Date End Date Carroll Fuentes DO [address] [place] [address] PCP - General 09/23/11 10/20/22 documented as of this encounter
--- OUTSIDE RECORDS SUMMARY | 2024-04-22 11:11 | XMS_ITS | Encounter Summary ---
Author Organization [facility] Address [facility] [place] [address] Care Team Providers Care Computer Graphic Designer Name Role Phone AlfredoCarroll allison Primary Care Provider [phone] Encounter Details Date Type Department Care Team (Latest Contact Info) Description 10/26/2016 10:37 AM EDT - 10/26/2016 11:59 PM EDT Hospital [place] [address] Discharge Disposition: Home Social History Tobacco Use [...] Sig Dispensed Refills Start Date End Date levETIRAcetam (KEPPRA) 500 mg Tablet take 1 tablet by mouth every morning and 2 tablets by mouth every evening 90 tablet 5 10/13/2016 05/19/2017 mycophenolate (CELLCEPT) 250 mg CapsuleIndications:S/ P kidney transplant Take 3 capsules by mouth 2 times daily. Kidney Transplant Z94.0. Transplant Date; 11-26-02 180 capsule 11 08/15/2016 03/09/2017 allopurinol (ZYLOPRIM) 100 mg TabletIndications:Hig h level of uric acid in blood take 1 and 1/2 tablets by mouth once daily 45 tablet 11 07/09/2016 01/06/2017 multivitamin Capsule Take 1 capsule by mouth daily. 2018 cholecalciferol, Vitamin D3, 50,000 unit Capsule Take by mouth once a week. Reported on 11/26/2016 11/26/2016 PROGRAF 1 mg Capsule take 1 capsule by mouth twice a day 60 capsule 11 05/04/2016 11/03/2016 calciTRIol (ROCALTROL) 0.5 mcg Capsule Take 1 capsule by mouth daily. 30 capsule 11 02/12/2016 02/11/2017 acetaminophen (TYLENOL) 500 mg Tablet Take 2 tablets by mouth every 8 hours. 30 tablet 1 02/06/2016 06/02/2017 DILTiazem (DILTIAZEM CD) 120 mg Capsule, Sust. Release 24 hr take 1 capsule by mouth once daily 90 capsule 3 01/31/2016 01/29/2017 losartan (COZAAR) 25 mg Tablet take 1 tablet by mouth once daily 90 tablet 3 12/12/2015 11/26/2016 hydrALAZINE (APRESOLINE) 50 mg Tablet take 1 tablet by mouth twice a day 180 tablet 3 12/06/2015 03/09/2017 warfarin (COUMADIN) 5 mg tablet Take 1 tablet (5 mg) by mouth on , and 1.5 tablets (7.5 mg) on all other days. Weekly dose = 50 mg. Take at the same time each day, preferably between 5:00 and 6:00 PM. 60 tablet 11 01/11/2014 05/16/2017 levothyroxine (SYNTHROID) 100 mcg Tablet Take 100 mcg by mouth daily. 2018 AMOXICILLIN TRIHYDRATE (TRIMOX ORAL) Take 2,000 mg by mouth. 1 hour Prior to dental procedures 05/11/2017 metoprolol tartrate (LOPRESSOR) 50 mg tablet Take 50 mg by mouth 3 times daily. 12/03/2010 10/20/2017 documented as of this encounter Plan of Treatment Not on file documented as of this encounter Visit Diagnoses Not on filedocumented in this encounter Care Teams Computer Graphic Designer Relationship Specialty Start Date End Date Carroll Fuentes DO [address] [place] [address] [address] [place] [address] PCP - General 09/23/11 10/20/22 documented as of this encounter
--- OUTSIDE RECORDS SUMMARY | 2024-04-22 11:11 | XMS_ITS | Encounter Summary ---
[place] [address] Care Team Providers Care Med Dir Name Role Phone Carroll Fuentes DO Primary Care Provider [phone] Reason for Visit * Reason Onset Date Comments Medication Refill 11/26/2016 Encounter Details Date Type Department Care Team (Late st Contact Info) Description 11/26/2016 Refill [place] [address] Crystal Brown, [facility] Social History Tobacco Use Types Packs/Day [...] on filedocumented in this encounter Care Teams Med Dir Relationship Specialty Start Date End Date Carroll Fuentes DO [address] [place] [address] PCP - General 09/23/11 10/20/22 documented as of this encounter
--- OUTSIDE RECORDS SUMMARY | 2024-04-22 11:11 | XMS_ITS | Encounter Summary ---
Author Organization [facility] Address [facility] [place] [address] Care Team Providers Care Patternmaker Name Role Phone Carroll Fuentes DO Primary Care Provider [phone] Reason for Visit * Reason Onset Date Comments Medication Refill 10/12/2016 Encounter Details Date Type Department Care Team (Late st Contact Info) Description 10/12/2016 [place] [address] Alfonzo Miles MD [facility] [place] [address] Social History Tobacco Use Types Packs/Day Years [...] on filedocumented in this encounter Care Teams Patternmaker Relationship Specialty Start Date End Date Carroll Fuentes DO [address] [place] [address] PCP - General 09/23/11 10/20/22 documented as of this encounter
--- OUTSIDE RECORDS SUMMARY | 2024-04-22 11:11 | XMS_ITS | Encounter Summary ---
[place] [address] Care Team Providers Care Cotton Classer Name Role Phone Carroll Fuentes DO Primary Care Provider [phone] Reason for Visit * Reason Onset Date Comments Medication Refill 01/06/2017 Encounter Details Date Type Department Care Team (Late st Contact Info) Description 01/06/2017 Refill [place] [address] Crystal Brown, [facility] High level of uric acid in blood Social History Tobacco Use Types Packs/Day Years [...] as of this encounter Visit Diagnoses Diagnosis High level of uric acid in blood Other abnormal blood chemistry documented in this encounter Care Teams Cotton Classer Relationship Specialty Start Date End Date Carroll Fuentes DO [address] [place] [address] PCP - General 09/23/11 10/20/22 documented as of this encounter
--- OUTSIDE RECORDS SUMMARY | 2024-04-22 11:11 | XMS_ITS | Encounter Summary ---
Author Organization [facility] Address [facility] [place] [address] Care Team Providers Care Balance Bridge Inspector Name Role Phone AlfredoCarroll allison Primary Care Provider [phone] Reason for Visit * Reason Comments Kidney Transplant Follow-up Immunotherapy Chronic Kidney Disease Encounter Details Date Type Department Care Team (Latest Contact Info) Description 11/26/2016 12:00 PM EDT Office Visit [place] [address] Anup Hawkins MD [facility] [place] [address] H/O kidney transplant; retail personal banker current use of immunosuppressive drug; Metabolic acidosis; Essential hypertension; CKD (chronic kidney disease) stage 4, GFR 15-29 ml/min; Hyperkalemia; Aftercare following organ transplant; Kidney replaced by transplant; Prophylactic immunotherapy Social History Tobacco Use Types [...] Sign Reading Time Taken Comments Blood Pressure 115/78 11/26/2016 11:26 AM EDT Pulse 51 11/26/2016 11:26 AM EDT Temperature 36.4 ??C (97.5 ??F) 11/26/2016 11:26 AM E DT Respiratory Rate 12 11/26/2016 11:26 AM EDT Oxygen Saturation 97% 11/26/2016 11:26 AM EDT Inhaled Oxygen Concentration - - Weight 82.6 kg (182 lb) 11/26/2016 11:26 AM EDT Height - - Body Mass Index 26.11 02/27/2016 12:22 PM EDT documented in this encounter Progress Notes * Ministerio Fontana, DO - 11/26/2016 12:00 PM EDT [facility] Transplant Nephrology Follow Up ? Date: 11/26/2016 Patient: Adama Ram Transplant Date: 11/26/02 ?? Transplant organ/Indication: Kidney / IgA nephropathy, Prograf toxicity ? Transplant ID: Mr. Adama Ram is a 55 y.o. male who is Status Post Kidney transplantation on 11/26/02. Post-op course was eventful delayed graft function, recurrent IgA nephropathy and Prograf toxicity, and adjustments in his anticonvulsants. Patient referred by Dr. Fuentes. Mr. Adama Ram presents to clinic for routine follow-up of care, patient is out (14 years) from Kidney transplantation. Had his left arm AVF taken down due to massive size, risk for high output CHF. ?? Interim Hx: Patient denies any recent illnesses or hospitalizations, and overall describes feeling well. Patient recently had BCC removed form his left arm, and has had numerous SCC removed previously. Renal function remains relatively stable (but slight increase in serum Cr to 2.6mg/dL) and patient is compliant with immunosuppression regimen. Patient has had some financial and employment issues recently --> but currently working/ employed. Patient continues to target 3L PO fluid intake. ?? Healthcare maintenance for a transplant recipient: Immunizations (no live virus or modified bacterial vaccines) Prevnar 13 once in a lifetime Pneumovax 23 every 5 years Tdap every 10 years Annual flu shot Annual PCP exam Annual SADAF [...] for diabetics, every 5 for non diabetics [place] kidney ultrasound looking for renal cell CA, every 5 years post transplant Bone density assessment every 9-12 years post transplant Annual fasting lipid profile Annual PTH-Vit D3 assessment until normalized Annual 24 hour timed urine for creatinine, protein, calcium, phosphate, magnesium ?? ROS: Denies fevers, chills, nausea, vomiting, diarrhea, abd pain, chest pain, sob. All other review of systems were neither positive or negative ?? Medications: Current Outpatient Prescriptions: ??? tacrolimus (PROGRAF) 1 mg Capsule, Take 1 capsule twice daily. Kidney transplant 11/26/2002. ICDcode Z94.0, Disp: 60 capsule, Rfl: 11 ??? levETIRAcetam (KEPPRA) 500 mg Tablet, take 1 tablet by mouth every morning and 2 tablets by mouth every evening (Patient taking differently: take 1 tablet by mouth every morning and 1 tablet by mouth every evening), Disp: 90 tablet, Rfl: 5 ??? mycophenolate (CELLCEPT) 250 mg Capsule, Take 3 capsules by mouth 2 times daily. Kidney Transplant Z94.0. Transplant Date; 11-26-02, Disp: 180 capsule, Rfl: 11 ??? allopurinol (ZYLOPRIM) 100 mg Tablet, take 1 and 1/2 tablets by mouth once daily, Disp: 45 tablet, Rfl: 11 ??? multivitamin Capsule, Take 1 capsule by mouth daily., Disp: , Rfl: ??? calciTRIol (ROCALTROL) 0.5 mcg Capsule, Take 1 capsule by mouth daily., Disp: 30 capsule, Rfl: 11 ??? acetaminophen (TYLENOL) 500 mg Tablet, Take 2 tablets by mouth every 8 hours., Disp: 30 tablet,Rfl: 1 ??? DILTiazem (DILTIAZEM CD) 120 mg Capsule, Sust. Release 24 hr, take 1 capsule by mouth once daily, Disp: 90 capsule, Rfl: 3 ??? hydrALAZINE (APRESOLINE) 50 mg Tablet, take 1 tablet by mouth twice a day, Disp: 180 tablet, Rfl: 3 ??? warfarin (COUMADIN) 5 mg tablet, Take 1 tablet (5 mg) by mouth on , and 1.5 tablets (7.5 mg) on all other days. Weekly dose = 50 mg. Take at the same time each day, preferably between 5:00 and 6:00 PM., Disp: 60 tablet, Rfl: 11 ??? levothyroxine (SYNTHROID) 88 mcg tablet, Take 88 mcg by mouth daily., Disp: , Rfl: ??? AMOXICILLIN TRIHYDRATE (TRIMOX ORAL), Take 2,000 mg by mouth. 1 hour Prior to dental procedures, Disp: , Rfl: ??? metoprolol tartrate (LOPRESSOR) 50 mg tablet, Take 50 mg by mouth 3 times daily., Disp: , Rfl: ??? cholecalciferol, Vitamin D3, 50,000 unit Capsule, Take by mouth once a week. Reported on 11/26/2016, Disp: , Rfl: ?? Allergies / ADRs: Allergies Allergen Reactions ??? Benazepril Hcl ? Codeine Other (See Comments) ? Patient does not know reaction ??? Hydrochlorothiazide ? Pollen Extracts ? Sneezing/runny nose ? PHYSICAL EXAM: Vital Signs Temp: 36.4 ??C (97.5 ??F) Temp Source: Oral Heart Rate: 51 Resp: 12 BP: 115/78 Patient Position: Sitting SpO2: 97 % Gen - AAO x 3 in NAD Skin - No exanthem. Lesion under left eye HEENT - Mucous membranes moist. Chest: Lungs clear to ausculatation w/o wheezes/ rhonchi/ crackles. Heart - S1 and S2 clear w/o murmur, gallop, or rub. JVP not elevated. Abd - Soft. + BS. No bruit. Non tender. No organomegaly. Ext - Warm. No cyanosis. No dependent edema. ?? Labs/ Imaging: Lab Results Component Value Date WBC 4.0 11/26/2016 HGB 9.1 (L) 11/26/2016 HCT 28.6 (L) 11/26/2016 MCV 92.0 11/26/2016 PLATELET 185 11/26/2016 Lab Results Component Value Date NA 141 11/26/2016 K 5.6 (H) 11/26/2016 CL 111 (H) 11/26/2016 CO2 14 (L) 11/26/2016 BUN 56 (H) 11/26/2016 CREATININE 2.64 (H) 11/26/2016 GLUCOSE 68 05/20/2016 GLUCFASTING 100 (H) 11/26/2016 CALCIUM 8.4 (L) 11/26/2016 Lab Results Component Value Date ALT 13 11/26/2016 AST 21 11/26/2016 ALKPHOS 98 11/26/2016 BILITOT 0.3 11/26/2016 BILIDIR 0.1 11/26/2016 ALBUMIN 4.2 11/26/2016 PROT 6.6 11/26/2016 Lab Results Component Value Date PTH 121 (H) 11/26/2016 CALCIUM 8.4 (L) 11/26/2016 PHOS 4.0 11/26/2016 Lab Results Component Value Date CALCIUM 8.4 (L) 11/26/2016 PHOS 4.0 11/26/2016 Lab Results Component Value Date URICACID 5.3 11/26/2016 Component Value Date/Time SPGRAVITYUA 1.016 05/20/2016 0846 PHUADIP 5.0 05/20/2016 0846 PROTEINUADIP 30 (A) 05/20/2016 0846 GLUCOSEU Negative 05/20/2016 0846 KETONESUA Negative 05/20/2016 0846 UROBILIUADIP Normal 05/20/2016 0846 BLOODUADIP Negative 05/20/2016 0846 NITRATEUA Negative 05/20/2016 0846 LEUKOESTERUA Negative 05/20/2016 0846 WBCUA <1 05/20/2016 0846 BILIRUBINUA Negative 05/20/2016 0846 Magnesium: 0.76 Urine Protein/ Creatine Ratio: 0.5 ?? Impression/ Plan: Mr. Ram is a 55 yr old gentleman w/ hx of kidney transplant who presents to transplant clinic for f/u. ?? 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 Recommend increased fluid intake. ?? Immunosuppression: -patient is consistent/ compliant with his immunosuppressive regimen -Prograf 1mg/1mg -Cellcept 750mg PO BID ?? PO4/Mg: -Phos 4.0 -Mag 0.76 ?? Hypertension: -controlled at goal -Continue Hydralazine, Diltiazem, Metoprolol Metabolic Acidosis: -serum bicarb was 14 this AM -recommended /8 tablespoon of baking soda BID Hyperkalemia: -holding losartan in the setting of hyperkalemia ?? Follow up: RTC 6 months Ministerio Fontana DO Nephrology Fellow [facility] I reviewed all of the above findings and assessment of Dr. Fontana, edited the above note to reflect my assessment and examination and formulated the recommendations which accurately reflect mine. 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
--- OUTSIDE RECORDS SUMMARY | 2024-04-22 11:11 | XMS_ITS | Encounter Summary ---
Author Organization [facility] [place] [address] Care Team Providers Care Software Qa Manager Name Role Phone Carroll Fuentes DO Primary Care Provider Reason for Visit * Reason Comments Medication Refill Encounter Details Date Type Department Care Team (Late st Contact Info) Description 07/09/2016 Refill [place] [address] Anup Hawkins MD [facility] [place] [address] High level of uric acid in blood [...] chemistry documented in this encounter Care Teams Software Qa Manager Relationship Specialty Start Date End Date Carroll Fuentes DO [address] [place], [place] [address] PCP - General 09/23/11 10/20/22 documented as of this encounter
--- OUTSIDE RECORDS SUMMARY | 2024-04-22 11:11 | XMS_ITS | Encounter Summary ---
Author Organization [facility] Address [facility] [place] [address] Care Team Providers Care Foot And Ankle Surgeon Name Role Phone AlfredoCarroll allison DO Primary Care Provider [phone] Reason for Visit * Reason Comments Skin Check Encounter Details Date Type Department Care Team (Late st Contact Info) Description 10/26/2016 10:30 AM EDT Office Visit Dermatology at [place] [address] [place] [address] Alexander Sage MD [facility] [address] [place] [address] Neoplasm of uncertain behavior of skin (Primary Dx); History of SCC (squamous cell carcinoma) of skin; Renal transplant recipient Social History Tobacco Use Types Packs/Day Years [...] this encounter Patient Instructions * Patient Instructions* Joanna Herr - 10/26/2016 10:30 AM EDT Treatment and Wound Care Instructions Your treatment today: You have had a shave biopsy of your skin, which is a removal of tissue for examination under a microscope. This wound will heal without stitches. Allow 3-6 weeks for the wound to heal. If bleeding occurs, hold firm pressure against the wound for 15 minutes. If bleeding continues, calls the office or go to your local emergency room. Please allow 1-2 weeks for the biopsy results to return. Your physician or nurse will contact you with the results by phone or letter; follow-up will be discussed at that time. Wound Care Instructions: You will need to keep the dressing placed over the wound dry and intact for 24 hours. Afterwards, perform the following wound care daily: ?? Wash your hands before changing the dressing. ?? Remove the bandage and clean the area with mild soap and water, then gently pat the area dry. ?? Apply a small amount of Vaseline to the area, then cover the wound with a band-aid. Change your dressing daily until the wound is fully healed. ?? A small amount of yellow drainage is part of normal healing. The area might appear as a small depression with redness around the edge of the wound. This is normal. ?? Please contact the office you you notice any of the following signs of infection: increased tenderness, pain, drainage, or redness that becomes hot or hard around the wound. If you have further questions or concerns, please call the office at [phone]. If it is after 5PM, or a holiday or weekend, please call [phone] and ask for the Assistant Unit Forester on-call. documented in this encounter Progress Notes * Alexander Sage MD - 10/26/2016 10:30 AM EDT DERMATOLOGY ESTABLISHED PATIENT CLINIC NOTE Date of service: 10/26/2016 Adama Ginna Ram : 1960 Provider: Alexander Sage MD Chief Complaint Patient presents with ??? Skin Check SKIN HISTORY: SCC removed 01/2016 left side of neck at [facility] (highly aggressive, with lymph node dissection [neg] and parotidectomy) SCC removed 05/04/16 right interscapular SCC removed 05/04/16 right lower back Transplant History (Kidney) in 2002. HPI Adama Ginna Ram is a 56 y.o. year old male, established patient last seen by me on 05/04/2016. Here today for a full skin exam. Patient is concerned with his left ear; there is an area that has become detached but otherwise is asymptomatic. He denies any other areas of concern today and notes the left lateral neck is healing very well with no tenderness or growths. He is just getting back work after being off for 8 months. 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 MEDS: Current Outpatient Prescriptions Medication Sig Dispense Refill ??? levETIRAcetam (KEPPRA) 500 mg Tablet take 1 tablet by mouth every morning and 2 tablets by mouth every evening 90 tablet 5 ??? mycophenolate (CELLCEPT) 250 mg Capsule Take 3 capsules by mouth 2 times daily. Kidney Transplant Z94.0. Transplant Date; 11-26-02 180 capsule 11 ??? allopurinol (ZYLOPRIM) 100 mg Tablet take 1 and 1/2 tablets by mouth once daily 45 tablet 11 ??? multivitamin Capsule Take 1 capsule by mouth daily. ??? cholecalciferol, Vitamin D3, 50,000 unit Capsule Take by mouth. ??? PROGRAF 1 mg Capsule take 1 capsule by mouth twice a day 60 capsule 11 ??? calciTRIol (ROCALTROL) 0.5 mcg Capsule Take 1 capsule by mouth daily. 30 capsule 11 ??? acetaminophen (TYLENOL) 500 mg Tablet Take 2 tablets by mouth every 8 hours. (Patient not taking: Reported on 05/20/2016) 30 tablet 1 ??? DILTiazem (DILTIAZEM CD) 120 mg Capsule, Sust. Release 24 hr take 1 capsule by mouth once daily90 capsule 3 ??? losartan (COZAAR) 25 mg Tablet take 1 tablet by mouth once daily 90 tablet 3 ??? hydrALAZINE (APRESOLINE) 50 mg Tablet take 1 tablet by mouth twice a day 180 tablet 3 ??? warfarin (COUMADIN) 5 mg tablet Take 1 tablet (5 mg) by mouth on , and 1.5 tablets (7.5mg) on all other days. Weekly dose = 50 mg. Take at the same time each day, preferably between 5:00and 6:00 PM. 60 tablet 11 ??? levothyroxine (SYNTHROID) 88 mcg tablet Take 88 mcg by mouth daily. ??? AMOXICILLIN TRIHYDRATE (TRIMOX ORAL) Take 2,000 mg by mouth. 1 hour Prior to dental procedures ??? metoprolol tartrate (LOPRESSOR) 50 mg tablet Take 50 mg by mouth 3 times daily. No current facility-administered medications for this visit. ADR: Allergies Allergen Reactions ??? Benazepril Hcl ??? Codeine Other (See Comments) Patient does not know reaction ??? Hydrochlorothiazide ??? Pollen Extracts Sneezing/runny nose ROS General: feeling well Skin: denies other skin complaints EXAM General: NAD, pleasant, cooperative Skin: Patient was asked to disrobe to the level of their comfort. A total body skin exam except forthe genitalia was performed. This includes examination of the skin of the face, ears, neck, chest, axillae, left and right upper and lower extremities, hands, feet, abdomen, back, and buttocks. The genitalia, perineum, and perianal areas were not examined. Significant skin findings: A. Left forearm - 1.3 cm pink pearly plaque B. Left lateral neck - shallow erosion within the scar, otherwise looks unremarkable. The ear lobe (left) inferiorly is torn -No head, neck, axillary, or inguinal LAD noted ASSESSMENT/PLAN: A. Basal Cell Carcinoma - I discussed this condition with the patient and explored therapeutic options. I recommended we do a shave biopsy with ED&C, joint decision made to proceed with skin biopsy for further diagnostic information. Procedure: Destruction of lesion and submission of tissue. Site: left forearm Discussed indications and expectations including risks and benefits. Verbal consent obtained. Skin prep. Local anesthesia: 1% lidocaine with epinephrine. A portion of the lesion was removed sharply to the level of the dermis; submitted to Pathology. The entire lesion plus a small margin was then treated by curettage and electrodesiccation x 3. Post-curettage defect size: 1.3 cm. No complications. Wound dressed. Expectations (including discomfortmanagement) and wound care reviewed. Follow-up based on pathology results. B. History of Squamous Cell Carcinoma in a transplant recipient (high risk) - Well-healed surgical scar, no signs of recurrence. -Continue to monitor -Call if problems arise -Discussed importance of sun protection, sun avoidance strategies, protective clothing, and sunscreen. -Patient is not very concerned with his left ear at this time Follow up: 3-[address] Smith for full skin exam (high risk clinic), sooner if needed. Routed to Deyvi Pickard for scheduling. Instructed to call with questions or concerns. Note initiated by: Mary Kay Kim CMA ? Joanna Herr, Clinical Scribe has performed the documentation for this encounter in the presenceof and acting as a scribe for Alexander Sage MD. I performed the above scribed service and agree withthe accuracy of the documentation in this encounter. I performed the above scribed service and agree with the accuracy of the documentation in this encounter. Alexander Sage MD Retail Security Professional of Dermatology, Department of Surgery [facility] documented in this encounter Plan of Treatment Not on file documented as of this encounter Procedures Procedure Name Priority Date/Time Associated Diagnosis Comments SPECIMEN TO PATHOLOGY (NON-OR) Routine 10/26/2016 11:27 AM EDT Neoplasm of uncertain behavior of skin SURGICAL PATHOLOGY REPORT Routine 10/26/2016 11:27 AM EDT documented in this encounter Results * Surgical Pathology Report (10/26/2016 11:27 AM EDT) Final Diagnosis [id number] ?Location: [facility] The signing pathologist has (i) examined the relevant preparation(s) for the specimen(s) and (ii) rendered or confirmed the diagnosis(es). . ?Surgical Pathology DIAGNOSIS Skin, left forearm, shave biopsy ED ??&C: Basal cell carcinoma, superficial multifocal pattern and nodular pattern. Electronically signed by: ??Marizol Izaguirre MD Verified: ??10/27/2016 ?Dermatopathol ogist CLINICAL INFORMATION Specimen Submitted: A - Skin, Left forearm, Shave biopsy ED ??&C, (1) Clinical History: 1.3 cm pink pearly plaque Clinical Diagnosis: BCC SPECIMEN PROCESSING A - Labeled/Fixativ e: Left forearm, formalin. Quantity/Size: Single, 1.5 x 1.4 x 0.1 cm. Tissue Description: Shave of white skin with a 1.5 x 1.3 cm pink plaque. Sections/Proces sing: Inked and serially sectioned. (T2) ??sns 10/27/2016 8:22 AM EDT [facility] SPECIMEN FROM SKIN / Unknown 10/26/2016 11:27 AM EDT 10/26/2016 11:27 AM EDT Alexander Sage MD PATHOLOGY/CYTOLOGY O UMESH Performing Organization Address [facility] Co de Phone Number [facility] [place] [address] * Specimen to Pathology (NON-OR) (10/26/2016 11:27 AM EDT) AP Specimen 10/26/2016 11:2 7 AM EDT 10/26/2016 3:29 PM EDT Narrative [facility] - 10/26/2016 3:29 PM EDT Specimen requisition ordered. ??Separate Pathology report to follow Resulting Agency Comment Spec In Lab Alexander Sage MD PATHOLOGY/CYTOLOGY O UMESH Performing Organization Address City/[facility] Co de Phone Number [facility] [place] [address] documented in this encounter Visit Diagnoses Diagnosis Neoplasm of uncertain behavior of skin- Primary History of SCC (squamous cell carcinoma) of skin Personal history of other malignant neoplasm of skin Renal transplant recipient documented in this encounter Care Teams Foot And Ankle Surgeon Relationship Specialty Start Date End Date Carroll Fuentes DO [address] [place] [address] PCP - General 09/23/11 10/20/22 documented as of this encounter
--- OUTSIDE RECORDS SUMMARY | 2024-04-22 11:11 | XMS_ITS | Encounter Summary ---
[place] [address] Care Team Providers Care Physical Therapy Coordinator Name Role Phone Carroll Fuentes DO Primary Care Provider [phone] Reason for Visit * Reason Onset Date Comments Medication Refill 03/09/2017 Encounter Details Date Type Department Care Team (Late st Contact Info) Description 03/09/2017 Refill [place] [address] Crystal Brown, [facility] Social History Tobacco Use Types Packs/Day [...] on filedocumented in this encounter Care Teams Physical Therapy Coordinator Relationship Specialty Start Date End Date Carroll Fuentes DO [address] [place] [address] PCP - General 09/23/11 10/20/22 documented as of this encounter
--- OUTSIDE RECORDS SUMMARY | 2024-04-22 11:11 | XMS_ITS | Encounter Summary ---
Author Organization [facility] [place] [address] Care Team Providers Care Brusher Hand Name Role Phone AlfredoCarroll allison Primary Care Provider [phone] Encounter Details Date Type Department Care Team (Late st Contact Info) Description 10/26/2016 Orders Only [place] [address] Tosha Castro, RN H/O kidney transplant Social History Tobacco Use [...] Procedure Name Priority Date/Time Associated Diagnosis Comments UPPER GI ENDOSCOPY Routine 05/13/2017 5: 08 PM EDT documented in this encounter Results * UPPER GI ENDOSCOPY (05/13/2017 5:08 PM EDT) UPPER GI ENDOSCOPY [facility] Endoscopy Procedure Date: 05/13/2017 5:08 PM ? Patient Name: Adama Ram ? Date of : 1960 ? Age: 56 ? Order #: [id number] ? Instrument Name: [id number] ? Procedure: ? Upper GI endoscopy Indications: ? Hematemesis, history of renal ? transplant on immunosuppression Providers: ? Aditya Barrera MD, Aditya Barrera, ? , Dona Londono RN, Miguel . ? Rhiannon, Mathematics Lecturer Referring MD: ? Medicines: ? Monitored Anesthesia Care Complications: ? No immediate complications. Procedure: ? Pre-Anesthesia Assessment: ? - Prior to the procedure, a History ? and Physical was performed, and ? patient medications and allergies ? were reviewed. The patient is ? competent. The risks and benefits of ? the procedure and the sedation ? options and risks were discussed with ? the patient. All questions were ? answered and informed consent was ? obtained. Patient identification and ? proposed procedure were verified by ? the physician and the nurse in the ? pre-procedure area in the procedure ? room. Mental Status Examination: ? alert and oriented. Airway ? Examination: normal oropharyngeal ? airway and neck mobility. Respiratory ? Examination: clear to auscultation. ? CV Examination: normal. ASA Grade ? Assessment: III - A patient with ? severe systemic disease. After ? reviewing the risks and benefits, the ? patient was deemed in satisfactory ? condition to undergo the procedure. ? The anesthesia plan was to use ? monitored anesthesia care (MAC). ? Immediately prior to administration ? of medications, the patient was ? re-assessed for adequacy to receive ? sedatives. The heart rate, ? respiratory rate, oxygen saturations, ? blood pressure, adequacy of pulmonary ? ventilation, and response to care ? were monitored throughout the ? procedure. The physical status of the ? patient was re-assessed after the ? procedure. ? The procedure, indications, benefits, ? risks and alternatives were explained ? to the patient. Specifically ? discussed were potential ? complications including, but not ? limited to, bleeding, perforation, ? infection, missing a cancer, and ? adverse medication reactions. The ? Endoscope was introduced through the ? mouth, and advanced to the second ? part of duodenum. The patient ? tolerated the procedure well. The ? upper GI endoscopy was accomplished ? without difficulty. The patient ? tolerated the procedure well. ? Findings: ? LA Grade D (one or more mucosal breaks involving at ? least 75% of esophageal circumference) esophagitis ? was found in the distal esophagus. Biopsies were ? taken with a cold forceps for histology. ? A 4 cm hiatal hernia was present (GE junction 40cm, ? Diaphragmatic pinch 45cm). ? The examined duodenum was normal. ? Moderate Sedation: ? Not applicable - See Anesthesia documentation Impression: ?- Severe esophagitis concern for ? severe reflux disease versus in the ? context of immunosuppression, ? infectious esophagitis s/p biopsies ? - Source of hematemesis likely 2/2 ? severe Grade D esophagitis. ? - 4 cm hiatal hernia. ? - Normal examined duodenum. Recommendation: ?- Return to floor, continue medical ? care ? - BID IV 40mg PPI, discharge on PO ? 40mg BID given severe esophagitis ? - F/u path ? - Avoid NSAIDs ? Procedure Code(s): ?? --- Professional --- ? 35669, Esophagogastroduoden oscopy, ? flexible, transoral; with biopsy, ? single or multiple CPT copyright 2016 [employer]. All rights reserved. The codes documented in this report are preliminary and upon teradata architect review may be revised to meet current compliance requirements. Attending Participation: ? I was present and participated during the entire ? procedure, including non-boyce portions. ? Aditya Barrera MD 05/13/2017 6:28:09 PM Number of Addenda: 0 Note Initiated On: 05/13/2017 5:08 PM PROVATION 05/13/2017 5:08 PM EDT Unknown GENERAL SURGICAL ORD ERABLES PROVATION * (ABNORMAL) Creatinine (10/26/2016 10:20 AM EDT) Creatinine 2.33(H) 0.80 - 1.50 mg/dL [facility] Comment: Please note that the pediatric reference intervals supplied above were not validated at [facility]. Results from pediatric patients should be interpreted in conjunction to the patient's age, height and muscle mass. Est Glomerular Filtration Rate 29(L) >=60 [facility] Comment: This estimated GFR [...] the following links into your internet browser. [email or web address] [email or web address] Blood specimen (specimen) 10/26/2016 10:20 AM EDT 10/26/2016 11:06 AM EDT Narrative Resulting Agency Comment Spec In Lab Anup Hawkins MD CHEMISTRY ORDERAB LES [facility] [place] [address] documented in this encounter Visit Diagnoses Diagnosis H/O kidney transplant Kidney replaced by transplant documented in this encounter Care Teams Brusher Hand Relationship Specialty Start Date End Date Carroll Fuentes DO [address] [place] [address] PCP - General 09/23/11 10/20/22 documented as of this encounter
--- OUTSIDE RECORDS SUMMARY | 2024-04-22 11:11 | XMS_ITS | Encounter Summary ---
Author Organization [facility] Address [facility] [place] [address] Care Team Providers Care Barrel Stave Inspector Name Role Phone AlfredoCarroll allison Primary Care Provider [phone] Encounter Details Date Type Department Care Team (Latest Contact Info) Description 10/25/2016 10:36 AM EDT - 10/25/2016 11:59 PM EDT [place] [address] Discharge Disposition: Home Social History Tobacco Use [...] Procedure Name Priority Date/Time Associated Diagnosis Comments U24 HRS AND VOLUME Routine 10/25/2016 12 :10 PM EDT URIC ACID, URINE, 24 HOUR Routine 10/25/2016 12:10 PM EDT CALCIUM, URINE, 24 HOUR Routine 10/25/2016 12:10 PM EDT CREATININE, URINE, 24 HOUR Routine 10/25/2016 12:10 PM EDT PROTEIN, URINE, 24 HOUR Routine 10/25/2016 12:10 PM EDT PHOSPHORUS, URINE, 24 HOUR Routine 10/25/2016 12:10 PM EDT CREATININE CLEARANCE, URINE, 24 HOUR Routine 10/25/2016 12:10 PM EDT documented in this encounter Results * U24 Hrs and Volume (10/25/2016 12:10 PM EDT) Hours Collected 24 hour(s) [facility] Total Volume 2,[address] [facility] Urine specimen (specimen) Urine / Unknown 10/25/2016 12:10 PM EDT 10/26/2016 12:15 PM EDT Narrative Resulting Agency Comment Spec In Lab Anup Hawkins MD CHEMISTRY ORDERAB LES Performing Organization Address City/[facility]/ZIP Co de Phone Number [facility] [place] [address] * Phosphorus, urine, 24 hour (10/25/2016 12:10 PM EDT) Phosphorus Concentration, U24 31.5 mg/dL [facility] Phosphorus, 24 Hour Urine 0.8 0.4 - 1.3 gm/24hr [facility] Urine specimen (specimen) Urine / Unknown 10/25/2016 12:10 PM EDT 10/26/2016 12:15 PM EDT Narrative Resulting Agency Comment Spec In Lab Anup Hawkins MD URINE ORDERABLES Performing Organization Address City/[facility]/ZIP Co de Phone Number [facility] [place] [address] * Uric acid, urine, 24 hour (10/25/2016 12:10 PM EDT) U24 Uric Conc 9.9 mg/dL [facility] Uric Acid, 24 Hour Urine 0.25 0.25 - 0.80 gm/24hr [facility] Urine specimen (specimen) Urine / Unknown 10/25/2016 12:10 PM EDT 10/26/2016 12:16 PM EDT Narrative Resulting Agency Comment Spec In Lab Anup Hawkins MD URINE ORDERABLES Performing Organization Address City/[facility]/ZIP Co de Phone Number [facility] [place] [address] * (ABNORMAL) Calcium, urine, 24 hour (10/25/2016 12:10 PM EDT) Ca Concentration, U24 <0.8 mg/dL [facility] Calcium, 24 Hour Urine <20.0(L) 50.0 - 300.0 mg/24hr [facility] Comment:Reference Range: 50. 0-300.0 mg/24 hour based on diet. Urine specimen (specimen) Urine / Unknown 10/25/2016 12:10 PM EDT 10/26/2016 12:15 PM EDT Narrative Resulting Agency Comment Spec In Lab Anup Hawkins MD URINE ORDERABLES Performing Organization Address City/[facility]/ZIP Co de Phone Number [facility] [place] [address] * (ABNORMAL) Creatinine Clearance, urine, 24 hour (10/25/2016 12:10 PM EDT) Creatinine Clearance, 24 Hour Urine 45(L) 90 - 139 mL/min [facility] Cre Concentration, U24 60 mg/dL [facility] Creatinine, 24 Hour Urine 1.50 0.80 - 1.90 gm/24hr [facility] Urine specimen (specimen) Urine / Unknown 10/25/2016 12:10 PM EDT 10/26/2016 11:57 AM EDT Narrative Resulting Agency Comment Spec In Lab Anup Hawkins MD URINE ORDERABLES Performing Organization Address [facility] Co de Phone Number [facility] [place] [address] * Creatinine, urine, 24 hour (10/25/2016 12:10 PM EDT) Cre Concentration, U24 60 mg/dL [facility] Creatinine, 24 Hour Urine 1.50 0.80 - 1.90 gm/24hr [facility] Urine specimen (specimen) Urine / Unknown 10/25/2016 12:10 PM EDT 10/26/2016 11:57 AM EDT Narrative Resulting Agency Comment Spec In Lab Anup Hawkins MD URINE ORDERABLES Performing Organization Address [facility] Co de Phone Number [facility] [place] [address] * (ABNORMAL) Protein, urine, 24 hour (10/25/2016 12:10 PM EDT) Protein Concentration, U24 18 <=80 mg/dL [facility] Protein, 24 Hour Urine 0.45(H) <=0.15 gm/24hr [facility] Urine specimen (specimen) Urine / Unknown 10/25/2016 12:10 PM EDT 10/26/2016 11:57 AM EDT Narrative Resulting Agency Comment Spec In Lab Anup Hawkins MD URINE ORDERABLES Performing Organization Address [facility] Co de Phone Number [facility] [place] [address] documented in this encounter Visit Diagnoses Not on filedocumented in this encounter Care Teams Barrel Stave Inspector Relationship Specialty Start Date End Date Carroll Fuentes DO [address] [place] [address] [address] [place] [address] PCP - General 09/23/11 10/20/22 documented as of this encounter
--- OUTSIDE RECORDS SUMMARY | 2024-04-22 11:11 | XMS_ITS | Encounter Summary ---
Author Organization [facility] [place] [address] Care Team Providers Care Investment Consultant Name Role Phone AlfredoCarroll allison Primary Care Provider Encounter Details Date Type Department Care Team (Latest Contact Info) Description 03/19/2017 7:43 PM EDT - 03/19/2017 11:59 PM EDT Hospital En[place] [address] Discharge Disposition: Home Social History Tobacco Use [...] Sig Dispensed Refills Start Date End Date hydrALAZINE (APRESOLINE) 50 mg Tablet Take 1 tablet by mouth 2 times daily. 180 tablet 3 03/09/2017 12/29/2017 mycophenolate (CELLCEPT) 250 mg CapsuleIndications:S/ P kidney transplant Take 3 capsules by mouth 2 times daily. Kidney Transplant Z94.0. Transplant Date; 11-26-02 180 capsule 11 03/09/2017 05/16/2017 CARTIA XT 120 mg Capsule, Sust. Release 24 hrIndications:H/O kidney transplant take 1 capsule by mouth once daily 90 capsule 01/29/2017 05/31/2017 allopurinol (ZYLOPRIM) 100 mg TabletIndications:Hig h level of uric acid in blood Take 1 and 1/2 tablet daily. 45 tablet 11 01/07/2017 07/23/2017 cholecalciferol, Vitamin D3, 50,000 unit Capsule Take 1 capsule by mouth once a week. Reported on 11/26/2016 12 capsule 3 11/29/2016 05/11/2017 tacrolimus (PROGRAF) 1 mg Capsule Take 1 [...] 8 hours. 30 tablet 1 02/06/2016 06/02/2017 warfarin (COUMADIN) 5 mg tablet Take 1 [...] Date/Time Associated Diagnosis Comments TACROLIMUS LEVEL Routine 03/19/2017 9:08 AM EDT LAB SCAN 03/19/2017 12:00 AM EDT documented in this encounter Results * Tacrolimus level (03/19/2017 9:08 AM EDT) Tacrolimus 4.5 ng/mL [facility] Comment: Trough therapeutic: ??5-15 ng/mL Performed by ultra-performance liquid chromatography tandem mass spectrometry (UPLCMS/MS). This test was developed and its performance characteristics determined by [facility]. It has not been cleared or approved by the FDA. The laboratory is regulated under CLIA as qualified to perform high-complexity testing. This test is used for clinical purposes. It should not be regarded as investigational or for research. Blood specimen (specimen) Venous Draw / Unknown 03/19/2017 9:08 AM EDT 03/20/2017 9:49 AM EDT Narrative Resulting Agency Comment Spec In Lab Anup Hawkins MD CHEMISTRY ORDERAB LES [facility] [place] [address] * SCAN DOC: LAB (03/19/2017 12:00 AM EDT) Narrative 03/19/2017 12:00 AM EDT Ordered by an unspecified provider. Scanning Provider MEDIA MGR SCAN EXT O RDR/RSLT documented in this encounter Visit Diagnoses Not on filedocumented in this encounter Care Teams Investment Consultant Relationship Specialty Start Date End Date Carroll Fuentes DO [address] [place] [address] PCP - General 09/23/11 10/20/22 documented as of this encounter
--- OUTSIDE RECORDS SUMMARY | 2024-04-22 11:11 | XMS_ITS | Encounter Summary ---
Author Organization Formerly [facility], [facility] Address [facility] [place] [address] Care Team Providers Care Director Of Materials Management Name Role Phone AlfredoCarroll allison Primary Care Provider [phone] Reason for Visit * Auth/Cert Specialty Diagnoses / Procedures Referred By Shashi ko Referred To Contact Diagnoses TRISTIAN (acute kidney injury) ACUTE ON CHRONIC RENAL FAILURE Procedures emergency IPI Referral ID Status Reason Start Date Expiration Date Visits Re quested Visits Authorized [id number] 1 1 Encounter Details Date Type Department Care Team (Late st Contact Info) Description 05/13/2017 4:30 PM EDT - 05/13/2017 5:00 PM EDT Surgery [place] [address] Aditya Barrera MD [facility] [place] [address] EGD WITH BIOPSY (WRVU 2.39) Social History Tobacco Use Types Packs/Day Years [...] Christy Ambrose Patient Age: 56 y.o. 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 Issues afterhours and on weekends will [...] GFR 15-29 ml/min ??? 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 intermediate manager current use of immunosuppressive drug ??? [...] Had a screening colonoscopy in 02/2017 in [facility] by Dr. Saab (sp?). ?? [...] BID to help healing. ? # L nondalton Renal masses # Weight loss: Given history of ~25lb weight loss over past few weeks without significant change in po intake a CTC/A/P was pursued. While above esophagitis may contribute significantly to weight loss,there was anincidental finding of several nondalton L renal masses, largest 5.2 cm concerning [...] accepted modalityto exclude pulmonary malignancy.UNEXPECTED FINDING. ?? 05/12/17 -- Transplant Renal U/S 1. ??Transplant kidney with dampened peak systolic velocities in??the midpolearcuate arteries [id number]. Allowing for differences in??scale, remainingvelocities and waveforms [...] ?? 05/14/17 -- US Retroperitoneal Echogenic atrophic nondalton kidneys. Peripheral to a 2.5??cm left renal [...] follow up with Dr. Hawkins -- call [phone] to confirm. You will have an appointment at 10:00am on WednesdayMay 28. - You will be contacted by your PCP's office for follow up Your Inpatient Doctor(s) at [facility]: Abner Dolan MD General Instructions Warfarin (Coumadin??) [...] INR check is scheduled for: Wednesday05/19/17 at [facility] Dr. Fuentes to provide further dosing recommendations based on INR result. ??? It is very important that you have your INR checked regularly as your dose may change based on your lab values. ??? INR goal range: 2.0-3.0 ??? Expected duration of treatment: Indefinite ??? Provider responsible for ongoing outpatient warfarin management: ??? Dr. Carroll Fuentes ??? [place], [place] ? INR taken at [facility] ??? If you have not received [...] a diet with a consistent amount of shgfnrw-h-jthqqmaihg foods and avoid major changes in your diet ?? Do not start or stop taking any prescription medications, zhqf-ben-xogisfz medications, dietary supplements or herbal medications without [...] 10:20 AM LAB, THREE L Lab 3L [facility] [phone] 05/19/2017 11:20 AM Anup Hawkins MD Transplant at [place] [phone] Future Orders Complete By Expires Referral to Urology [[id number] Custom] As directed Process Instructions: If no [...] new findings of likely malignancy in left nondalton kidney -- would like to have these findings evaluated urgently for therapy. Pending specialist evaluation, I anticipate: [facility] [X] Referral as Co-Management Do not type below here: [id number] Questions: My question or request is: See comment Discharge References/Attachments ELEVATED INR (STATELESS) VITAMIN K DIET (STATELESS) WARFARIN SAFETY TIPS (STATELESS) documented in this encounter Discharge Instructions * Discharge Instructions* Nell Page, [facility] - 05/16/2017 12:18 PM EST Warfarin (Coumadin??) [...] INR check is scheduled for: Wednesday05/19/17 at [facility]. Dr. Fuentes to provide further dosing recommendations based on INR result. ??? It is very important that you have your INR checked regularly as your dose may change based on your lab values. ??? INR goal range: 2.0-3.0 ??? Expected duration of treatment: Indefinite ??? Provider responsible for ongoing outpatient warfarin management: ??? Dr. Carroll Fuentes ??? [place], [place] ? INR taken at [facility] ??? If you have not received [...] a diet with a consistent amount of yqrpxqd-x-sggkgocfun foods and avoid major changes in your diet ?? Do not start or stop taking any prescription medications, anky-kyu-wytbipe medications, dietary supplements or herbal medications without [...] follow up with Dr. Hawkins -- call [phone] to confirm. You will have an appointment at 10:00am on WednesdayMay 28. - You will be contacted by your PCP's office for follow up Your Inpatient Doctor(s) at [facility]: Abner Dolan MD * Attachments The following attachments cannot be sent through Care Everywhere. * ELEVATED INR (STATELESS) * VITAMIN K DIET (STATELESS) * WARFARIN SAFETY TIPS (STATELESS) documented in this encounter Medications at Time [...] GFR 15-29 ml/min ??? 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 intermediate manager current use of immunosuppressive drug ??? [...] spent >30 minutes (Day of Discharge Code 39271) involved in the final examination of the [...] 12:20 PM EST Cardiac/Telemetry Nursing Progress Note [id number] Subjective: I'm feeling better. Objective: Vital Signs: [...] activity- up to 150's, int. Sinus arrhythmia KS 0.15 QRS 0.13 RR 1.23 QT 0.45 [...] dampened peak systolic velocities in??the midpolearcuate arteries [id number]. Allowing for differences in??scale, remainingvelocities and waveforms [...] fluid. 05/14/17 -- US Retroperitoneal Echogenic atrophic nondalton kidneys. Peripheral to a 2.5 cm left [...] large bore IV access ? # L nondalton Renal masses - Discussed with urology, will [...] TRISTIAN, and UGIB Team Pager( Coverage 01/02): #[phone] PCP: Carroll Fuentes DO [phone] Attestation: IPI Certification I certify that I am a D-H credentialed attending provider with admitting privileges and that the patient meets or has met medical necessity to require an inpatient IPI level of care meeting a minimumof two midnights or is on the [facility] inpatient only procedure list (status C) due [...] and ADLs]: None Surveillance [continuous indirect monitoring]: Masimo, Tele, Hourly Rounding Patient-specific fall prevention interventions for sensory deficits provided, if applicable: [X] N/A CPG GOAL OUTCOME EVALUATION: * Maria E Galvan RN - 05/15/2017 2:34 AM EDT Cardiac/Telemetry Nursing Progress Note [id number] ?? Subjective: Patient stated feeling well, improving everyday Objective: ?? Vital Signs: See Vital signs below ?? Cardiac Meds: See online MAR ?? Labs: See labs in online chart. ?? Assessment: Denies SOB, CP/N/V. Patient A&O with no complaints. HR 54-120. Plan: Continue telemetry monitoring. Notify MD of any changes. * Selma Torres RN - 05/14/2017 7:45 PM EDT Cardiac/Telemetry Nursing Progress Note [id number] Subjective: No, I don't have any pain. [...] GFR 15-29 ml/min ??? 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 intermediate manager current use of immunosuppressive drug ??? [...] Intake/Output Summary (Last 24 hours) at 05/14/17 1923 Last data filed at 05/14/17 1904 Gross per 24 hour Intake 4705 ml [...] Cr. Also found to have new L nondalton renal masses concerning for underlying malignancy. #TRISTIAN [...] 2 large bore IV access ? #L nondalton Renal masses #Weight loss: Gives history of [...] negative -Results of colonoscopy from 02/2017 @ [place], [place] by Dr. Michaud obtained: normal colonoscopy [...] TRISTIAN, and UGIB Team Pager( Coverage 01/02): #[phone] PCP: Carroll Fuentes DO [phone] Attestation: IPI Certification I certify that I am a D-H credentialed attending provider with admitting privileges and that the patient meets or has met medical necessity to require an inpatient IPI level of care meeting a minimumof two midnights or is on the [facility] inpatient only procedure list (status C) due [...] PACs, HR up to 130 with activity, KS 0.16, QRS 0.09, RR 1.44, QT 0.38, [...] 7:49 PM EDT Cardiac/Telemetry Nursing Progress Note [id number] Subjective: No, I don't have any pain. [...] Dolan MD - 05/13/2017 11:[address] [facility] Medicine Attending Daily Progress Note Admit [...] CMV -Results of colonoscopy from 02/2017 @ [place], [place] by Dr. Michaud obtained: normal colonoscopy [...] TRISTIAN, and UGIB Team Pager( Coverage 01/02): #[phone] PCP: Carroll Fuentes DO [phone] Attestation: IPI Certification I certify that I [...] [95 %-97 %] Cardiac/Telemetry Nursing Progress Note [id number] Subjective: Pt asymptomatic, denies chest pain, dizziness, nausea, and palpitations. Objective: Vital Signs: See Vital signs below Cardiac Meds: See online MAR Labs: See labs in online chart. Assessment: Pt predominately in sinus rhythm, bradycardic, HR 45-60, tachy into the 120s with activity, rare blocked beats, rare PACs. Pt had 2.8 sec pause. KS 0.18, QRS 0.12, RR 1.16, QT 0.44, [...] 3 wbc, hgb, hct plt Recent Labs 05/12/1761705/11/17202911/26/16 1033 WBC 2.7* 3.9* 4.0 HGB 7.2* 8.5* 9.1* HCT 21.3* 26.0* 28.6* PLATELET 188 214 185 Last 3 Lytes Recent Labs 05/12/1761705/11/17202911/26/16 1033 NA 148* 144 141 K 3.3* 3.3* 5.6* CL 116* 113* 111* CO2 12* 12* 14* BUN 82* 84* 56* CREATININE 4.93* 4.93* 2.64* Last 3 LFTs Recent Labs 05/12/1761711/26/16 1033 AST 11 21 ALT 10 13 [...] and UGIB ?? Team Pager( Coverage 01/02): #[phone] PCP: Carroll Fuentes DO [phone] Attestation: IPI Certification I certify that I [...] [97 %-100 %] Cardiac/Telemetry Nursing Progress Note [id number] Subjective: Pt denies chest pain, SOB, and palpitations. Intermittent nausea. Objective: Vital Signs: See Vital signs below Cardiac Meds: See online MAR Labs: See labs in online chart. Assessment: Pt bradycardic, SR, Rare PACs, HR 55- 90, KS 0.20, R 1.11, QT 0.44, QTc 0.41 Plan: Continue telemetry monitoring. Notify MD of any changes. See Attached Tele Strip. (in green paper chart). documented in this encounter H&P Notes * Anastasia Varghese - 05/13/2017 4:51 PM EDT Gastroenterology and [...] ml/min N18.4 ??? 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 prison current use of immunosuppressive drug Z79.899 ??? [...] disease ID: 56 y.o. Male presents to [facility] with TRISTIAN History of Present Illness: HPI [...] Had a screening colonoscopy in 02/2017 in [facility] by Dr. Saab (sp?). Denies [...] [facility] MEDICAL CENTER MAIN OR ??? PRO EXC PAROTD, TOTAL, UNILAT RAD NECK Left 02/05/2016 @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, TOTAL, WITH UNILATERAL RADICAL NECK DISSECTION performed by Miguel Angel Moreno MD at [facility] OR ??? PRO EXC SKIN MALIG 3.1-4CM FACE, FACIAL Left 02/05/2016 EXC MALIGNANT LESION, 3.1 TO 4.0CM, FACE performed by Miguel Angel Moreno MD at [facility] OR ? ? PRO EXC SKIN MALIG >4CM TRUNK, ARM, LEG 04/19/2012 EXC MALIGNANT LESION, MICHAEL > 4.0CM, TRUNK performed by SABRINA SANCHEZ at [facility] OR ??? PRO REPAIR INTERMEDIATE S/A/T/E 2.6-7.5 CM 04/19/2012 REPAIR INTERMEDIATE WOUND, (NO HANDS OR FEET) 2.6 TO 7.5CM, UPPER EXTREMITY performed by SABRINA SANCHEZ at [facility] OR ? ? PRO SPLIT GRFT, HEAD, FAC, HAND, FEET <100SQCM N/A 02/20/2016 SPLIT THICKNESS SKIN SPLIT GRAFT,100SQ CM OR LESS, NECK performed by Miguel Angel Moreno MD at [facility] MAIN OR ??? PRO VASCULAR SURGERY PROCEDURE UNLIST Left 11/20/2015 LIGATION\REPAIR AV FISTULA performed by Camilo Ireland MD at [facility] OR ??? PRO VASCULAR SURGERY PROCEDURE UNLIST Left 11/20/2015 EXCISION VEIN FROM HAND performed by Camilo Ireland MD at [facility] OR ??? 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 [...] Handling Outcome: Ongoing (Interventions Implemented as Appropriate) 05/13/17200005/15/17129905/15/171999 Restraint Interventions Safety Promotion/Fall Prevention -- -- [...] Outcome: Ongoing (Interventions Implemented as Appropriate) 05/15/17 1827 Coping/Psychosocial Plan Of Care Reviewed With patient [...] EVALUATION: * Consult Note - Nell Page [facility] - 05/15/2017 11:26 AM EDT Pharmacy Warfarin [...] booklet provided: Yes AVS documentation: In Progress [facility] documents attached to AVS: Vitamin K Diet, Warfarin Thank you very much for the consult. We will continue to dose and monitor warfarin daily. If there is a change in medical condition that warrants discontinuation of warfarin, please discontinue the pharmacy warfarin consult and communicate this to the pharmacy warfarin management service. Pharmacy warfarin management service pager: [phone] NELL PAGE RPH * Plan of Care [...] ml/min N18.4 ??? 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 prison current use of immunosuppressive drug Z79.899 ??? [...] encounter: 71.3 kg (157 lb 3.2 oz). [place] body weight: 73 kg (160 lb 15 oz) Estimated needs: Calories: 5941-4380 (25-30 kcal/kg) Protein: 85-100 grams (1.2- 1.5 [...] further discussion upon diet advancement. Danette Armas Treasury Assistant * Consult Note - Bhargav Pino RPH [...] booklet provided: Yes AVS documentation: In Progress [facility] documents attached to AVS: Vitamin K Diet, Warfarin Thank you very much for the consult. We will continue to dose and monitor warfarin daily. If there is a change in medical condition that warrants discontinuation of warfarin, please discontinue the pharmacy warfarin consult and communicate this to the pharmacy warfarin management service. Pharmacy warfarin management service pager: [phone] BHARGAV PINO RPH * Plan of Care [...] EVALUATION: * Consult Note - Bhargav Pino, [facility] - 05/13/2017 3:01 PM EDT Pharmacy Warfarin [...] management service. Pharmacy warfarin management service pager: [phone] BHARGAV PINO RPH * Plan of Care [...] EVALUATION: * Plan of Care - Ilda Kate, RN - 05/12/2017 5:51 PM EDT Problem: [...] of care (reference Gastrointestinal Bleeding (Adult) CPG). 05/12/171742 Gastrointestinal Bleeding Problems Assessed (GI Bleeding) all [...] Hepatology Inpatient Consultation Christy Ginna Ambrose [id number] PCP: Carroll Fuentes DO Date of Admission: [...] stable without any further episodes of bleeding. / SH reviewed Review of Systems: 10 [...] ml/min N18.4 ??? 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 prison current use of immunosuppressive drug Z79.899 ??? [...] AND MEDICAL CENTER MAIN OR ??? PRO EXC PAROTD, TOTAL, UNILAT RAD NECK Left 02/05/2016 @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, TOTAL, WITH UNILATERAL RADICAL NECK DISSECTION performed by Miguel Angel Moreno MD at [facility] MAIN OR ??? PRO EXC SKIN MALIG 3.1-4CM FACE, FACIAL Left 02/05/2016 EXC MALIGNANT LESION, 3.1 TO 4.0CM, FACE performed by Miguel Angel Moreno MD at [facility] OR ? ? PRO EXC SKIN MALIG >4CM TRUNK, ARM, LEG 04/19/2012 EXC MALIGNANT LESION, MICHAEL > 4.0CM, TRUNK performed by SABRINA SANCHEZ at [facility] OR ??? PRO REPAIR INTERMEDIATE S/A/T/E 2.6-7.5 CM 04/19/2012 REPAIR INTERMEDIATE WOUND, (NO HANDS OR FEET) 2.6 TO 7.5CM, UPPER EXTREMITY performed by SABRINA SANCHEZ at [facility] OR ? ? PRO SPLIT GRFT, HEAD, FAC, HAND, FEET <100SQCM N/A 02/20/2016 SPLIT THICKNESS SKIN SPLIT GRAFT,100SQ CM OR LESS, NECK performed by Miguel Angel Moreno MD at [facility] OR ??? PRO VASCULAR SURGERY PROCEDURE UNLIST Left 11/20/2015 LIGATION\REPAIR AV FISTULA performed by Camilo Ireland MD at [facility] OR ??? PRO VASCULAR SURGERY PROCEDURE UNLIST Left 11/20/2015 EXCISION VEIN FROM HAND performed by Camilo Ireland MD at [facility] OR ??? US RENAL TRANSPLANT BIOPSY 12/31/2010 [...] EMR. Recent pertinent labs include: Recent Labs 11/01/115505/12/1761705/11/172029 WBC 3.0* 2.7* 3.9* HGB 6.9* 7.2* [...] total. * Consult Note - Bhargav Pino [facility] - 05/12/2017 1:03 PM EDT Pharmacy Warfarin [...] management service. Pharmacy warfarin management service pager: [phone] BHARGAV PINO RPH * Consult Note - [...] mass index is 22.56 kg/(m^2). Current bed: [facility] Assessment: Pt with abrasion to left medial [...] chair to 2 hour intervals. Use a CleanTie chair cushion beneath patient at all times while in the chair. Reinforce teaching to shift weight every 15 minutes while in the chair. Wound care will follow weekly. Discussed plan with: RN: Ilda Please contact MEAGHAN HOOD RN on pager [phone] or the wound care team at [phone] or pager [phone] with skin and wound care concerns or [...] Patient: was told to come in from theinic Past Medical History: Diagnosis Date ??? BP [...] N/A Prescription Coverage: Yes Preferred Pharmacy: [facility] Other: n/a Primary Care Provider: Carroll Fuentes DO [phone] Patient/Caregiver Goals of Treatment: Go home once [...] of care planning. Karuna Lawton RN Pager: [phone] * Plan of Care - Mayra Hernandez [...] stage 4, GFR 15-29 ml/min Prophylactic immunotherapy prison current use of immunosuppressive drug H/O kidney transplant Ordered: 05/16/2017 documented as of this encounter Procedures Procedure Name Priority Date/Time Associated Diagnosis Comments LAB SCAN 05/17/2017 12:00 AM EST CASH ON DELIVERY CLERK SCAN 05/17/2017 12:00 AM EST HEMOGRAM Routine [...] 6:00 AM EDT DIFFERENTIAL, AUTOMATED Routine 05/13/20 6:00 AM EDT TACROLIMUS LEVEL Routine 05/13/2017 [...] PM EDT TRANSFUSE THAWED PLASMA Routine 05/12/20 17 3:07 PM EDT PREPARE RBC Routine 05/12/2017 [...] METABOLIC PANEL STAT 05/11/2017 8:30 PM EDT documented in this encounter Results * SCAN DOC: LAB (05/17/2017 12:00 AM EST) Narrative 05/17/2017 12:00 AM EST Ordered by an unspecified provider. Scanning Provider MEDIA MGR SCAN EXT O RDR/RSLT * SCAN DOC: CASH ON DELIVERY CLERK (05/17/2017 12:00 AM EST) Anatomical Region Laterality Modality Other Narrative 05/17/2017 12:00 AM EST Ordered by an unspecified provider. Scanning Provider MEDIA MGR SCAN EXT O RDR/RSLT * (ABNORMAL) Differential, Automated (05/16/2017 4:56 AM EST) Neutrophil % 76.5 % [facility] Neutrophil Absolute 2.69 1.70 - 6.10 x10(3)/mc L [facility] Lymph % 9.9 % [facility] Lymphocytes Abs 0.4(L) 0.9 - 3.2 x10(3)/mc L [facility] Monocyte % 10.5 % [facility] Monocyte Abs 0.4 0.3 - 0.9 x10(3)/mc L [facility] Eos % 2.8 % [facility] Eosinophils Abs 0.1 0.0 - 0.4 x10(3)/mc L [facility] Basophil % 0.0 % [facility] Baso Absolute 0.0 0.0 - 0.1 x10(3)/mc L [facility] Immature Gran % 0.30 % [facility] Comment: Immature granulocytes(IG's)percentage and absolute count will include metamyelocytes, myelocytes, and promyelocytes. Blood smears from CBCs yielding IG's will be scanned manually for concordance. If this scan disagrees with the automated IG or if promyelocytes are noted, a manual differential will be performed. Immature Gran Absolute 0.01 0.00 - 0.04 x10(3)/ L [facility] Blood specimen (specimen) 05/16/2017 4:56 AM EST 05/16/2017 5:28 AM EST Narrative Resulting Agency Comment Spec In Lab Abner Adames MD HEMATOLOGY ORDERABLE S [facility] [place] [address] * (ABNORMAL) Hemogram (05/16/2017 4:56 AM EST) White Blood Cell 3.5(L) 4.0 - 9.5 x10(3)/[facility] Red Blood Cell 2.79(L) 4.58 - 5.54 x10(6)/[facility] Hemoglobin 8.4(L) 13.7 - 16.5 gm/dL [facility] Hematocrit 24.3(L) 40.5 - 48.5 % [facility] Mean Cell Volume 87.1 82.9 - 93.1 fL [facility] Mean Cell Hemoglobin 30.1 27.5 - 32.1 pg [facility] Mean Cell Hemoglobin Concentration 34.6 32.0 - 35.7 gm/dL [facility] Platelet 160 145 - 357 x10(3)/[facility] RDW Standard Deviation 46.2(H) 36.0 - 45.0 [facility] RDW coefficient of variation 14.6(H) 11.4 - 13.8 % [facility] Mean Platelet Volume 9.9 7.6 - 12.9 [facility] NRBC% auto 0.0 % [facility] NRBC Absolute 0.000 0.000 - 0.000 x10(3)/[facility] Blood specimen (specimen) 05/16/2017 4:56 AM EST 05/16/2017 5:28 AM EST Narrative Resulting Agency Comment Spec In Lab Abner Adames MD HEMATOLOGY ORDERABLE S Performing Organization Address City/[facility]/ZIP Co de Phone Number [facility] [place] [address] * Phosphorus (05/16/2017 4:56 AM EST) Phosphorus 2.6 2.5 - 4.5 mg/dL [facility] Blood specimen (specimen) 05/16/2017 4:56 AM EST 05/16/2017 5:28 AM EST Narrative Resulting Agency Comment Spec In Lab Abner Adames MD CHEMISTRY ORDERABLES Performing Organization Address [facility] Co de Phone Number [facility] [place] [address] * (ABNORMAL) Magnesium (05/16/2017 4:56 AM EST) Magnesium 0.58(L) 0.69 - 1.07 mmol/L [facility] Blood specimen (specimen) 05/16/2017 4:56 AM EST 05/16/2017 5:28 AM EST Narrative Resulting Agency Comment Spec In Lab Abner Adames MD CHEMISTRY ORDERABLES Performing Organization Address City/[facility]/ZIP Co de Phone Number [facility] [place] [address] * (ABNORMAL) Basic Metabolic Panel (non-fasting) (05/16/2017 4:56 AM EST) Glucose 101 65 - 199 mg/dL [facility] Comment:Diabetes: >=200 mg/d L plus symptoms Blood Urea Nitrogen 32(H) 10 - 20 mg/dL [facility] Creatinine 2.20(H) 0.80 - 1.50 mg/dL [facility] Sodium 139 135 - 145 mmol/L [facility] Potassium 3.7 3.5 - 5.0 mmol/L [facility] [...] - 15 mmol/L [facility] Calcium 7.5(L) 8.5 - 10.5 mg/dL [facility] Est Glomerular Filtration Rate 31(L) >=60 [facility] Comment: The reported eGFR should be multiplied by 1.2 for patients. The MDRD is not an appropriate measure of renal function for patients with body mass extremes or in patients with acute kidney failure. http://Plink/DHnkdep http://Plink/DHMCnkf Blood specimen (specimen) 05/16/2017 4:56 AM EST 05/16/2017 5:28 AM EST Narrative Resulting Agency Comment Spec In Lab Abner Adames MD CHEMISTRY ORDERABLES [facility] [place] [address] * (ABNORMAL) Prothrombin Time (05/16/2017 4:56 AM EST) Prothrombin Time 14.2(H) 11.8 - 14.0 sec [facility] International Normalization Ratio 1.1 0.9 - 1.1 [facility] Comment: An INR <2.0 [...] ORDERABL ES Performing Organization Address [facility] Co de Phone Number [facility] [place] [address] * (ABNORMAL) Hepatic Function Panel (05/15/2017 8:44 AM EDT) [facility] Protein, Total 5.0(L) 6.1 - 8.0 gm/dL [facility] Albumin 3.0(L) 3.2 - 5.2 gm/dL [facility] Aspartate Aminotransferase 12 0 - 39 unit/L [facility] Alanine Aminotransferase 10 0 - 55 unit/L [facility] Alkaline Phosphatase 103 40 - 120 unit/L [facility] Bilirubin, Total 0.6 0.2 - 1.3 mg/dL [facility] Bilirubin, Direct 0.2 0.0 - 0.3 mg/dL [facility] Blood specimen (specimen) Venous Draw / Unknown 05/15/2017 8:44 AM EDT 05/15/2017 8:53 AM EDT Narrative Resulting Agency Comment Spec In Lab Jesenia Dolan MD CHEMISTRY ORDERABLE S Performing Organization Address [facility] Co de Phone Number [facility] [place] [address] * (ABNORMAL) Differential, Automated (05/15/2017 8:44 AM EDT) [facility] Neutrophil % 67.0 % [facility] Neutrophil Absolute 2.04 1.70 - 6.10 x10(3)/mc L [facility] Lymph % 15.7 % [facility] Lymphocytes Abs 0.5(L) 0.9 - 3.2 x10(3)/mc L [facility] Monocyte % 12.1 % [facility] Monocyte Abs 0.4 0.3 - 0.9 x10(3)/[facility] Eos % 4.9 % [facility] Eosinophils Abs 0.2 0.0 - 0.4 x10(3)/[facility] Basophil % 0.0 % [facility] Baso Absolute 0.0 0.0 - 0.1 x10(3)/[facility] Immature Gran % 0.30 % [facility] Comment: Immature granulocytes(IG's)percentage and absolute count will include metamyelocytes, myelocytes, and promyelocytes. Blood smears from CBCs yielding IG's will be scanned manually for concordance. If this scan disagrees with the automated IG or if promyelocytes are noted, a manual differential will be performed. Immature Gran Absolute 0.01 0.00 - 0.04 x10(3)/[facility] Blood specimen (specimen) 05/15/2017 8:44 AM EDT 05/15/2017 8:52 AM EDT Narrative Resulting Agency Comment Spec In Lab Jesenia Dolan MD HEMATOLOGY ORDERABL ES [facility] [place] [address] * (ABNORMAL) Hemogram (05/15/2017 8:44 AM EDT) White Blood Cell 3.0(L) 4.0 - 9.5 x10(3)/[facility] Red Blood Cell 2.92(L) 4.58 - 5.54 x10(6)/[facility] Hemoglobin 8.8(L) 13.7 - 16.5 gm/dL [facility] Hematocrit 24.9(L) 40.5 - 48.5 % [facility] Mean Cell Volume 85.3 82.9 - 93.1 fL [facility] Mean Cell Hemoglobin 30.1 27.5 - 32.1 pg [facility] Mean Cell Hemoglobin Concentration 35.3 32.0 - 35.7 gm/dL [facility] Platelet 167 145 - 357 x10(3)/mc L [facility] RDW Standard Deviation 45.6(H) 36.0 - 45.0 [facility] RDW coefficient of variation 14.8(H) 11.4 - 13.8 % [facility] Mean Platelet Volume 9.7 7.6 - 12.9 fL [facility] NRBC% auto 0.0 % [facility] NRBC Absolute 0.000 0.000 - 0.000 x10(3)/mc L [facility] Blood specimen (specimen) 05/15/2017 8:44 AM EDT 05/15/2017 8:52 AM EDT Narrative Resulting Agency Comment Spec In Lab Jesenia Dolan MD HEMATOLOGY ORDERABL ES Performing Organization Address [facility] de Phone Number [facility] [place] [address] * (ABNORMAL) Prothrombin Time (05/15/2017 8:44 AM EDT) Prothrombin Time 14.7(H) 11.8 - 14.0 sec [facility] International Normalization Ratio 1.2(H) 0.9 - 1.1 [facility] Comment: An INR <2.0 [...] ORDERABL ES Performing Organization Address [facility] Co de Phone Number [facility] [place] [address] * Magnesium (05/15/2017 8:44 AM EDT) Magnesium 0.72 0.69 - 1.07 mmol/L [facility] Blood specimen (specimen) 05/15/2017 8:44 AM EDT 05/15/2017 8:52 AM EDT Narrative Resulting Agency Comment Spec In Lab Jesenia Dolan MD CHEMISTRY ORDERABLE S [facility] [place] [address] * (ABNORMAL) Basic Metabolic Panel (non-fasting) (05/15/2017 8:44 AM EDT) Pathologist [facility] Glucose 120 65 - 199 mg/dL [facility] Comment:Diabetes: >=200 mg/d L plus symptoms Blood Urea Nitrogen 37(H) 10 - 20 mg/dL [facility] Creatinine 2.52(H) 0.80 - 1.50 mg/dL [facility] Sodium 140 135 - 145 mmol/L [facility] Potassium 3.6 3.5 - 5.0 mmol/L [facility] [...] LABORATORY Est Glomerular Filtration Rate 27(L) >=60 [facility] Comment: The reported eGFR should be multiplied by 1.2 for patients. The MDRD is not an appropriate measure of renal function for patients with body mass extremes or in patients with acute kidney failure. [email or web address] Blood specimen (specimen) 05/15/2017 8:44 AM EDT 05/15/2017 8:52 AM EDT Narrative Resulting Agency Comment Spec In Lab Jesenia Dolan MD CHEMISTRY ORDERABLE S [facility] [place] [address] * (ABNORMAL) Differential, Automated (05/14/2017 6:26 PM EDT) Neutrophil % 63.6 % [facility] Neutrophil Absolute 1.85 1.70 - 6.10 x10(3)/mc L [facility] Lymph % 18.9 % [facility] Lymphocytes Abs 0.6(L) 0.9 - 3.2 x10(3)/mc L [facility] Monocyte % 13.1 % [facility] Monocyte Abs 0.4 0.3 - 0.9 x10(3)/mc L [facility] Eos % 3.8 % [facility] Eosinophils Abs 0.1 0.0 - 0.4 x10(3)/mc L [facility] Basophil % 0.3 % [facility] Baso Absolute 0.0 0.0 - 0.1 x10(3)/mc L [facility] Immature Gran % 0.30 % [facility] Comment: Immature granulocytes(IG's)percentage and absolute count will include metamyelocytes, myelocytes, and promyelocytes. Blood smears from CBCs yielding IG's will be scanned manually for concordance. If this scan disagrees with the automated IG or if promyelocytes are noted, a manual differential will be performed. Immature Gran Absolute 0.01 0.00 - 0.04 x10(3)/mc L [facility] Blood specimen (specimen) 05/14/2017 6:26 PM EDT 05/14/2017 6:40 PM EDT Narrative Resulting Agency Comment Spec In Lab Jesenia Dolan MD HEMATOLOGY ORDERABL ES [facility] [place] [address] * (ABNORMAL) Hemogram (05/14/2017 6:26 PM EDT) White Blood Cell 2.9(L) 4.0 - 9.5 x10(3)/[facility] Red Blood Cell 2.76(L) 4.58 - 5.54 x10(6)/mc [facility] Hemoglobin 8.0(L) 13.7 - 16.5 gm/dL [facility] Hematocrit 23.6(L) 40.5 - 48.5 % [facility] Mean Cell Volume 85.5 82.9 - 93.1 fL [facility] Mean Cell Hemoglobin 29.0 27.5 - 32.1 pg [facility] Mean Cell Hemoglobin Concentration 33.9 32.0 - 35.7 gm/dL [facility] Platelet 172 145 - 357 x10(3)/mc L [facility] RDW Standard Deviation 45.6(H) 36.0 - 45.0 [facility] RDW coefficient of variation 15.1(H) 11.4 - 13.8 % [facility] Mean Platelet Volume 10.3 7.6 - 12.9 [facility] NRBC% auto 0.0 % [facility] NRBC Absolute 0.000 0.000 - 0.000 x10(3)/[facility] Blood specimen (specimen) 05/14/2017 6:26 PM EDT 05/14/2017 6:40 PM EDT Narrative Resulting Agency Comment Spec In Lab Jesenia Dolan MD HEMATOLOGY ORDERABL ES Performing Organization Address [facility] Co de Phone Number [facility] [place] [address] * (ABNORMAL) Basic Metabolic Panel (non-fasting) (05/14/2017 6:26 PM EDT) Glucose 112 65 - 199 mg/dL [facility] Comment:Diabetes: >=200 mg/d L plus symptoms Blood Urea Nitrogen 44(H) 10 - 20 mg/dL [facility] Creatinine 2.70(H) 0.80 - 1.50 mg/dL [facility] Sodium 139 135 - 145 mmol/L [facility] Potassium 3.3(L) 3.5 - 5.0 mmol/L [facility] [...] LABORATORY Est Glomerular Filtration Rate 25(L) >=60 [facility] Comment: The reported eGFR should be multiplied by 1.2 for patients. The MDRD is not an appropriate measure of renal function for patients with body mass extremes or in patients with acute kidney failure. [email or web address] Blood specimen (specimen) 05/14/2017 6:26 PM EDT 05/14/2017 6:40 PM EDT Narrative Resulting Agency Comment Spec In Lab Jesenia Dolan MD CHEMISTRY ORDERABLE S Performing Organization Address [facility] Co de Phone Number [facility] [place] [address] * US Retroperitoneal Complete (05/14/2017 3:35 PM EDT) Anatomical Region Laterality Modality Abdomen Ultrasound 05/14/2017 3:31 PM EDT Impressions 05/14/2017 4:51 PM EDT ??Echogenic atrophic nondalton kidneys. Peripheral to a 2.5 cm left renal cyst are dual heterogeneous solid renal massesone of which shows trace peripheral flow in one of its shows small central flow.These are concerning for malignancy. ?Devi Hdez MD Electronically Signed Final Report ?? 05/14/2017 04:51 pm Narrative 05/14/2017 4:51 PM EDT Renal ? (Signed Final 05/14/2017 04:51 pm) PATIENT INFO: ID #: ? [id number] ?: ??[birth year] (56 yrs) Name: ? CHRISTY AMBROSE ?Visit Date: 05/14/2017 03:31 pm PERFORMED BY: Performed By: ? Brianna Becker RDMS Attending: ?Lemuel JONES, Devi Adams Referred By: ?JESENIA DOLAN Location: ? [place] SERVICE(S) PROVIDED: ??URETRO - Retroperitoneal Complete - [id number] ? [id number] INDICATIONS: ??Evaluate L renal mass, ? malignancy [...] 05/14/2017 04:51 pm) PATIENT INFO: ID #: [id number] : [birth year] (56 yrs) Name: CHRISTY AMBROSE Visit Date: 05/14/2017 03:31 pm PERFORMED BY: Performed By: Brianna Becker RDMS Attending: Devi Hdez MD Referred By: JESENIA DOLAN Location: [place] SERVICE(S) PROVIDED: URETRO - Retroperitoneal Complete - [id number] INDICATIONS: Evaluate L renal mass, ? malignancy [...] Partially distended, normal contour IMPRESSION Echogenic atrophic nondalton kidneys. Peripheral to a 2.5 cm left [...] dilatation. Spleen: Normal. Adrenals: Normal. Kidneys: The nondalton kidneys are severely atrophied. There are 3 well-circumscribed lesions projecting from the upper pole of the nondalton left kidney. The smallest measures 2.0 cm [...] dilatation. Spleen: Normal. Adrenals: Normal. Kidneys: The nondalton kidneys are severely atrophied. There are 3 [...] 6:09 AM EDT) Lyme Antibody Neg Neg [facility] Blood specimen (specimen) 05/14/2017 6:09 AM EDT 05/15/2017 12:19 PM EDT Narrative Resulting Agency Comment Spec In Lab Jesenia Dolan MD IMMUNOLOGY ORDERABL ES [facility] [place] [address] * (ABNORMAL) Magnesium (05/14/2017 6:08 AM EDT) Magnesium 0.65(L) 0.69 - 1.07 mmol/L [facility] Blood specimen (specimen) Venous Draw / Unknown 05/14/2017 6:08 AM EDT 05/14/2017 6:39 AM EDT Narrative Resulting Agency Comment Spec In Lab Jesenia Dolan MD CHEMISTRY ORDERABLE S Performing Organization Address City/[facility]/ZIP Co de Phone Number [facility] [place] [address] * (ABNORMAL) Differential, Automated (05/14/2017 6:08 AM EDT) Neutrophil % 66.5 % [facility] Neutrophil Absolute 2.20 1.70 - 6.10 x10(3)/mc L [facility] Lymph % 15.1 % [facility] Lymphocytes Abs 0.5(L) 0.9 - 3.2 x10(3)/ L [facility] Monocyte % 14.5 % [facility] Monocyte Abs 0.5 0.3 - 0.9 x10(3)/ L [facility] Eos % 3.3 % [facility] Eosinophils Abs 0.1 0.0 - 0.4 x10(3)/[facility] Basophil % 0.3 % [facility] Baso Absolute 0.0 0.0 - 0.1 x10(3)/mc L [facility] Immature Gran % 0.30 % [facility] Comment: Immature granulocytes(IG's)percentage and absolute count will include metamyelocytes, myelocytes, and promyelocytes. Blood smears from CBCs yielding IG's will be scanned manually for concordance. If this scan disagrees with the automated IG or if promyelocytes are noted, a manual differential will be performed. Immature Gran Absolute 0.01 0.00 - 0.04 x10(3)/mc L [facility] Blood specimen (specimen) 05/14/2017 6:08 AM EDT 05/14/2017 6:36 AM EDT Narrative Resulting Agency Comment Spec In Lab Jesenia Dolan MD HEMATOLOGY ORDERABL ES Performing Organization Address [facility]/ZIP Co de Phone Number [facility] [place] [address] * (ABNORMAL) Hemogram (05/14/2017 6:08 AM EDT) White Blood Cell 3.3(L) 4.0 - 9.5 x10(3)/[facility] Red Blood Cell 2.74(L) 4.58 - 5.54 x10(6)/[facility] Hemoglobin 8.2(L) 13.7 - 16.5 gm/dL [facility] Hematocrit 23.2(L) 40.5 - 48.5 % [facility] Mean Cell Volume 84.7 82.9 - 93.1 fL [facility] Mean Cell Hemoglobin 29.9 27.5 - 32.1 pg [facility] Mean Cell Hemoglobin Concentration 35.3 32.0 - 35.7 gm/dL [facility] Platelet 158 145 - 357 x10(3)/[facility] RDW Standard Deviation 45.8(H) 36.0 - 45.0 [facility] RDW coefficient of variation 15.0(H) 11.4 - 13.8 % [facility] Mean Platelet Volume 9.9 7.6 - 12.9 [facility] NRBC% auto 0.0 % [facility] NRBC Absolute 0.000 0.000 - 0.000 x10(3)/[facility] Blood specimen (specimen) 05/14/2017 6:08 AM EDT 05/14/2017 6:36 AM EDT Narrative Resulting Agency Comment Spec In Lab Jesenia Dolan MD HEMATOLOGY ORDERABL ES [facility] [place] [address] * (ABNORMAL) Prothrombin Time (05/14/2017 6:08 AM EDT) Prothrombin Time 16.1(H) 11.8 - 14.0 sec [facility] International Normalization Ratio 1.3(H) 0.9 - 1.1 [facility] Comment: An INR <2.0 [...] Lab Jesenia Dolan MD HEMATOLOGY ORDERABL ES [facility] [place] [address] * (ABNORMAL) Basic Metabolic Panel (non-fasting) (05/14/2017 6:08 AM EDT) Glucose 123 65 - 199 mg/dL [facility] Comment:Diabetes: >=200 mg/d L plus symptoms Blood Urea Nitrogen 54(H) 10 - 20 mg/dL [facility] Creatinine 3.14(H) 0.80 - 1.50 mg/dL [facility] Sodium 143 135 - 145 mmol/L [facility] Potassium 2.9(Criti constance) 3.5 - 5.0 mmol/L [facility] Comment: Results rechecked. Called by: WILLIAM Read back by: Selma Torres, Date/Time:05/14/17 07:39. [...] 31 mmol/L [facility] Anion Gap 16(H) 5 - 15 mmol/L [facility] Calcium 7.4(L) 8.5 - 10.5 mg/dL [facility] Est Glomerular Filtration Rate 21(L) >=60 [facility] Comment: The reported eGFR should be multiplied by 1.2 for patients. The MDRD is not an appropriate measure of renal function for patients with body mass extremes or in patients with acute kidney failure. [email or web address] [email or web address] Blood specimen (specimen) 05/14/2017 6:08 AM EDT 05/14/2017 6:36 AM EDT Narrative Resulting Agency Comment Spec In Lab Jesenia Dolan MD CHEMISTRY ORDERABLE S [facility] [place] [address] * (ABNORMAL) Differential, Automated (05/13/2017 8:26 PM EDT) Neutrophil % 72.2 % [facility] Neutrophil Absolute 2.57 1.70 - 6.10 x10(3)/mc L [facility] Lymph % 11.2 % [facility] Lymphocytes Abs 0.4(L) 0.9 - 3.2 x10(3)/mc L [facility] Monocyte % 14.6 % [facility] Monocyte Abs 0.5 0.3 - 0.9 x10(3)/mc L [facility] Eos % 1.4 % [facility] Eosinophils Abs 0.0 0.0 - 0.4 x10(3)/mc L [facility] Basophil % 0.3 % [facility] Baso Absolute 0.0 0.0 - 0.1 x10(3)/mc L [facility] Immature Gran % 0.30 % [facility] Comment: Immature granulocytes(IG's)percentage and absolute count will include metamyelocytes, myelocytes, and promyelocytes. Blood smears from CBCs yielding IG's will be scanned manually for concordance. If this scan disagrees with the automated IG or if promyelocytes are noted, a manual differential will be performed. Immature Gran Absolute 0.01 0.00 - 0.04 x10(3)/mc L [facility] Blood specimen (specimen) 05/13/2017 8:26 PM EDT 05/13/2017 8:35 PM EDT Narrative Resulting Agency Comment Spec In Lab Jesenia Dolan MD HEMATOLOGY ORDERABL ES [facility] [place] [address] * (ABNORMAL) Hemogram (05/13/2017 8:26 PM EDT) White Blood Cell 3.6(L) 4.0 - 9.5 x10(3)/[facility] Red Blood Cell 3.01(L) 4.58 - 5.54 x10(6)/mc L [facility] Hemoglobin 8.9(L) 13.7 - 16.5 gm/dL [facility] Hematocrit 25.7(L) 40.5 - 48.5 % [facility] Mean Cell Volume 85.4 82.9 - 93.1 fL [facility] Mean Cell Hemoglobin 29.6 27.5 - 32.1 pg [facility] Mean Cell Hemoglobin Concentration 34.6 32.0 - 35.7 gm/dL [facility] Platelet 168 145 - 357 x10(3)/ L [facility] RDW Standard Deviation 47.4(H) 36.0 - 45.0 fL [facility] RDW coefficient of variation 15.3(H) 11.4 - 13.8 % [facility] Mean Platelet Volume 9.9 7.6 - 12.9 fL [facility] NRBC% auto 0.0 % [facility] NRBC Absolute 0.000 0.000 - 0.000 x10(3)/mc L [facility] Blood specimen (specimen) 05/13/2017 8:26 PM EDT 05/13/2017 8:35 PM EDT Narrative Resulting Agency Comment Spec In Lab Jesenia Dolan MD HEMATOLOGY ORDERABL ES Performing Organization Address [facility] Co de Phone Number [facility] [place] [address] * Tacrolimus level (05/13/2017 8:26 PM EDT) Tacrolimus <3.0 ng/mL [facility] Comment: Trough therapeutic: ??5-15 ng/mL Performed by ultra-performance liquid chromatography tandem mass spectrometry (UPLCMS/MS). This test was developed and its performance characteristics determined by [facility]. It has not been cleared [...] ORDERABLE S Performing Organization Address [facility] Co de Phone Number [facility] [place] [address] * Cytomegalovirus Culture Esophagus (05/13/2017 6:27 PM EDT) Cytomegalovirus Culture No Cytomegalovirus isolated in cell culture [facility] Specimen from esophagus (specimen) 05/13/2017 6:27 PM EDT 05/13/2017 7:16 PM EDT Comment:EGD ESOPHAGEAL BIOPS IES, HX OF IMMUNOSUPPRESSION Narrative Resulting Agency Comment Spec In Lab Aditya Barrera MD MICROBIOLOGY - GENER AL ORDERABLES Performing Organization Address [facility] Co [place] [address] * Surgical Pathology Report (05/13/2017 5:55 PM EDT) Final Diagnosis [id number] ? Location: 3EST; 0330; A The signing pathologist has (i) examined the relevant preparation(s) for the specimen(s) and (ii) rendered or confirmed the diagnosis(es). . ?Surgical Pathology DIAGNOSIS Esophagus, ??biopsy: Reactive esophageal-gastric junctional mucosa ?with intestinal metaplasia ??(negative for dysplasia) and fibrinopurulent debris containing scattered bacteria. See discussion #1. Electronically signed by: ??Kristine JONES PhD, Edgar Chacko Verified: ??05/18/2017 ?Pathologist Performed at: ??-[facility] [facility] [place], [place], [place] DISCUSSION 1. The findings are consistent with mckenna ?? 's esophagus in the proper clinical context. ??Special stain for fungi (GMS) is negative. CLINICAL INFORMATION Specimen Submitted: A - Biopsy esophagus Clinical History: v SPECIMEN PROCESSING A - Labeled/Fixative: Biopsy esophagus, formalin. Quantity/Size: Fragments, 0.3-0.4 cm. Tissue Description: Soft, smith-pink tissue. Sections/Processin g: (T1) ??pps 05/18/2017 2:39 PM EST [facility] GI Biopsy 05/13/2017 5:55 PM EDT 05/13/2017 5:55 PM EDT Aditya Barrera MD PATHOLOGY/CYTOLOGY O RDERABLES [facility] [place] [address] * Specimen to Pathology (surgical or derm) (05/13/2017 5:55 PM EDT) AP Specimen 05/13/2017 5:55 PM EDT 05/13/2017 5:55 PM EDT Narrative [facility] - 05/13/2017 5:55 PM EDT Specimen requisition ordered. ??Separate Pathology report to follow Jesenia Dolan MD PATHOLOGY/CYTOLOGY ORDERABLES Performing Organization Address [facility]/[place] [address] * (ABNORMAL) Magnesium (05/13/2017 1:44 PM EDT) [facility] Magnesium 0.59(L) 0.69 - 1.07 mmol/L [facility] Blood specimen (specimen) Venous Draw / Unknown 05/13/2017 1:44 PM EDT 05/13/2017 2:13 PM EDT Narrative Resulting Agency Comment Spec In Lab Jesenia Dolan MD CHEMISTRY ORDERABLE S Performing Organization Address City/[facility]/ZIP Co de Phone Number [facility] [place] [address] * (ABNORMAL) Differential, Automated (05/13/2017 1:44 PM EDT) [facility] Neutrophil % 67.5 % [facility] Neutrophil Absolute 2.07 1.70 - 6.10 x10(3)/mc L [facility] Lymph % 15.0 % [facility] Lymphocytes Abs 0.5(L) 0.9 - 3.2 x10(3)/mc L [facility] Monocyte % 15.3 % [facility] Monocyte Abs 0.5 0.3 - 0.9 x10(3)/mc L [facility] Eos % 1.6 % [facility] Eosinophils Abs 0.0 0.0 - 0.4 x10(3)/mc L [facility] Basophil % 0.3 % [facility] Baso Absolute 0.0 0.0 - 0.1 x10(3)/mc L [facility] Immature Gran % 0.30 % [facility] Comment: Immature granulocytes(IG's)percentage and absolute count will include metamyelocytes, myelocytes, and promyelocytes. Blood smears from CBCs yielding IG's will be scanned manually for concordance. If this scan disagrees with the automated IG or if promyelocytes are noted, a manual differential will be performed. Immature Gran Absolute 0.01 0.00 - 0.04 x10(3)/[facility] Blood specimen (specimen) 05/13/2017 1:44 PM EDT 05/13/2017 1:56 PM EDT Narrative Resulting Agency Comment Spec In Lab Jesenia Dolan MD HEMATOLOGY ORDERABL ES [facility] [place] [address] * (ABNORMAL) Hemogram (05/13/2017 1:44 PM EDT) White Blood Cell 3.1(L) 4.0 - 9.5 x10(3)/[facility] Red Blood Cell 2.83(L) 4.58 - 5.54 x10(6)/[facility] Hemoglobin 8.3(L) 13.7 - 16.5 gm/dL [facility] Hematocrit 24.2(L) 40.5 - 48.5 % [facility] Mean Cell Volume 85.5 82.9 - 93.1 fL [facility] Mean Cell Hemoglobin 29.3 27.5 - 32.1 pg [facility] Mean Cell Hemoglobin Concentration 34.3 32.0 - 35.7 gm/dL [facility] Platelet 165 145 - 357 x10(3)/[facility] RDW Standard Deviation 46.0(H) 36.0 - 45.0 fL [facility] RDW coefficient of variation 14.8(H) 11.4 - 13.8 % [facility] Mean Platelet Volume 9.6 7.6 - 12.9 fL [facility] NRBC% auto 0.0 % [facility] NRBC Absolute 0.000 0.000 - 0.000 x10(3)/mc L [facility] Blood specimen (specimen) 05/13/2017 1:44 PM EDT 05/13/2017 1:56 PM EDT Narrative Resulting Agency Comment Spec In Lab Jesenia Dolan MD HEMATOLOGY ORDERABL ES [facility] [place] [address] * (ABNORMAL) Basic Metabolic Panel (non-fasting) (05/13/2017 1:44 PM EDT) Glucose 117 65 - 199 mg/dL [facility] Comment:Diabetes: >=200 mg/d L plus symptoms Blood Urea Nitrogen 64(H) 10 - 20 mg/dL [facility] Creatinine 3.56(H) 0.80 - 1.50 mg/dL [facility] Sodium 145 135 - 145 mmol/L [facility] Potassium 3.5 3.5 - 5.0 mmol/L [facility] [...] LABORATORY Est Glomerular Filtration Rate 18(L) >=60 [facility] Comment: The reported eGFR should be multiplied by 1.2 for patients. The MDRD is not an appropriate measure of renal function for patients with body mass extremes or in patients with acute kidney failure. [email or web address] Blood specimen (specimen) 05/13/2017 1:44 PM EDT 05/13/2017 1:56 PM EDT Narrative Resulting Agency Comment Spec In Lab Jesenia Dolan MD CHEMISTRY ORDERABLE S Performing Organization Address City/[facility]/ZIP Co de Phone Number [facility] [place] [address] * Tacrolimus level (05/13/2017 6:00 AM EDT) Tacrolimus <3.0 ng/mL [facility] Comment: Trough therapeutic: ??5-15 ng/mL Performed by ultra-performance liquid chromatography tandem mass spectrometry (UPLCMS/MS). This test was developed and its performance characteristics determined by [facility]. It has not been cleared [...] MD CHEMISTRY ORDERABLE S Performing Organization Address [facility]/ZIP Co de Phone Number [facility] [place] [address] * (ABNORMAL) Magnesium (05/13/2017 6:00 AM EDT) Magnesium 0.65(L) 0.69 - 1.07 mmol/L [facility] Blood specimen (specimen) Venous Draw / Unknown 05/13/2017 6:00 AM EDT 05/13/2017 7:09 AM EDT Narrative Resulting Agency Comment Spec In Lab Jesenia Dolan MD CHEMISTRY ORDERABLE S Performing Organization Address [facility]/ZIP Co de Phone Number [facility] [place] [address] * (ABNORMAL) Differential, Automated (05/13/2017 6:00 AM EDT) Neutrophil % 59.7 % [facility] Neutrophil Absolute 1.73 1.70 - 6.10 x10(3)/mc L [facility] Lymph % 19.7 % [facility] Lymphocytes Abs 0.6(L) 0.9 - 3.2 x10(3)/mc L [facility] Monocyte % 16.6 % [facility] Monocyte Abs 0.5 0.3 - 0.9 x10(3)/mc L [facility] Eos % 3.4 % [facility] Eosinophils Abs 0.1 0.0 - 0.4 x10(3)/ L [facility] Basophil % 0.3 % [facility] Baso Absolute 0.0 0.0 - 0.1 x10(3)/mc L [facility] Immature Gran % 0.30 % [facility] Comment: Immature granulocytes(IG's)percentage and absolute count will include metamyelocytes, myelocytes, and promyelocytes. Blood smears from CBCs yielding IG's will be scanned manually for concordance. If this scan disagrees with the automated IG or if promyelocytes are noted, a manual differential will be performed. Immature Gran Absolute 0.01 0.00 - 0.04 x10(3)/mc L [facility] Blood specimen (specimen) 05/13/2017 6:00 AM EDT 05/13/2017 6:20 AM EDT Narrative Resulting Agency Comment Spec In Lab Jesenia Dolan MD HEMATOLOGY ORDERABL ES Performing Organization Address [facility]/ZIP Co de Phone Number [facility] [place] [address] * (ABNORMAL) Hemogram (05/13/2017 6:00 AM EDT) White Blood Cell 2.9(L) 4.0 - 9.5 x10(3)/[facility] LABORATORY Red Blood Cell 2.76(L) 4.58 - 5.54 x10(6)/[facility]ORATORY Hemoglobin 8.2(L) 13.7 - 16.5 gm/dL [facility] Hematocrit 23.3(L) 40.5 - 48.5 % [facility] Mean Cell Volume 84.4 82.9 - 93.1 [facility]AT[facility] Mean Cell Hemoglobin 29.7 27.5 - 32.1 pg [facility] Mean Cell Hemoglobin Concentration 35.2 32.0 - 35.7 gm/dL [facility] Platelet 179 145 - 357 x10(3)/[facility] LABORATORY RDW Standard Deviation 45.3(H) 36.0 - 45.0 [facility] LABORATORY RDW coefficient of variation 15.0(H) 11.4 - 13.8 % [facility] Mean Platelet Volume 10.1 7.6 - 12.9 [facility] LABORATORY NRBC% auto 0.0 % [facility] NRBC Absolute 0.000 0.000 - 0.000 x10(3)/[facility]ORATORY Blood specimen (specimen) 05/13/2017 6:00 AM EDT 05/13/2017 6:20 AM EDT Narrative Resulting Agency Comment Spec In Lab Jesenia Dolan MD HEMATOLOGY ORDERABL ES [facility] [place] [address] * CMV Antibody, IgM (05/13/2017 6:00 AM EDT) CMV IgM Negative Negative [facility] Blood specimen (specimen) 05/13/2017 6:00 AM EDT 05/13/2017 6:19 AM EDT Narrative Resulting Agency Comment Spec In Lab Anup Hawkins MD IMMUNOLOGY ORDERA BLES Performing Organization Address [facility] Co de Phone Number [facility] [place] [address] * CMV Antibody, IgG (05/13/2017 6:00 AM EDT) CMV IgG Negative Negative [facility] Blood specimen (specimen) 05/13/2017 6:00 AM EDT 05/13/2017 6:19 AM EDT Narrative Resulting Agency Comment Spec In Lab Anup Hawkins MD IMMUNOLOGY ORDERA BLES Performing Organization Address [facility] de Phone Number [facility] [place] [address] * (ABNORMAL) Prothrombin Time (05/13/2017 6:00 AM EDT) Pathologist [facility] Prothrombin Time 17.9(H) 11.8 - 14.0 sec [facility] Comment: An INR <2.0 [...] International Normalization Ratio 1.5(H) 0.9 - 1.1 [facility] Blood specimen (specimen) 05/13/2017 6:00 AM EDT 05/13/2017 6:19 AM EDT Narrative Resulting Agency Comment Spec In Lab Jesenia Dolan MD HEMATOLOGY ORDERABL ES Performing Organization Address [facility] Co de Phone Number [facility] [place] [address] * CMV PCR, Quantitative (05/13/2017 6:00 AM EDT) CMV Quant (Numeric) <137 IU/mL [facility] CMV Quant (Interp) Result: Not Detected Sample: plasma Method: This quantitative real-time PCR assay was performed in the [facility] using ??CHINMAY?? AmpliPrep/CHINMAY? ? TaqMan?? CMV Test ([employer] Linear Range: 137 IU/mL - 9,100,000 IU/mL (2.14 log ? 6.96 log IU/mL) Limit of Detection: 91 IU/mL (1.96 log IU/mL) [facility] Blood specimen (specimen) 05/13/2017 6:00 AM EDT 05/14/2017 12:12 PM EDT Narrative Resulting Agency Comment Spec In Lab Anup Hawkins MD MOLECULAR ORDERAB LES [facility] [place] [address] * (ABNORMAL) Basic Metabolic Panel (non-fasting) (05/13/2017 6:00 AM EDT) Pathologist [facility] Glucose 102 65 - 199 mg/dL [facility] Comment:Diabetes: >=200 mg/d L plus symptoms Blood Urea Nitrogen 67(H) 10 - 20 mg/dL [facility] Creatinine 3.87(H) 0.80 - 1.50 mg/dL [facility] Sodium 147(H) 135 - 145 mmol/L [facility] Potassium 3.5 3.5 - 5.0 mmol/L [facility] [...] 31 mmol/L [facility] Anion Gap 16(H) 5 - 15 mmol/L [facility] Calcium 7.5(L) 8.5 - 10.5 mg/dL [facility] Est Glomerular Filtration Rate 16(L) >=60 [facility] Comment: The reported eGFR should be multiplied by 1.2 for patients. The MDRD is not an appropriate measure of renal function for patients with body mass extremes or in patients with acute kidney failure. http://[email or web address] [email or web address] Blood specimen (specimen) 05/13/2017 6:00 AM EDT 05/13/2017 6:19 AM EDT Narrative Resulting Agency Comment Spec In Lab Jesenia Dolan MD CHEMISTRY ORDERABLE S [facility] [place] [address] * (ABNORMAL) Differential, Automated (05/12/2017 11:49 PM EDT) Neutrophil % 62.9 % [facility] Neutrophil Absolute 1.90 1.70 - 6.10 x10(3)/mc L [facility] Lymph % 18.9 % [facility] Lymphocytes Abs 0.6(L) 0.9 - 3.2 x10(3)/mc L [facility] Monocyte % 15.9 % [facility] Monocyte Abs 0.5 0.3 - 0.9 x10(3)/mc L [facility] Eos % 2.0 % [facility] Eosinophils Abs 0.1 0.0 - 0.4 x10(3)/mc L [facility] Basophil % 0.0 % [facility] Baso Absolute 0.0 0.0 - 0.1 x10(3)/mc L [facility] Immature Gran % 0.30 % [facility] Comment: Immature granulocytes(IG's)percentage and absolute count will include metamyelocytes, myelocytes, and promyelocytes. Blood smears from CBCs yielding IG's will be scanned manually for concordance. If this scan disagrees with the automated IG or if promyelocytes are noted, a manual differential will be performed. Immature Gran Absolute 0.01 0.00 - 0.04 x10(3)/mc L [facility] Blood specimen (specimen) 05/12/2017 11:49 PM EDT 05/12/2017 11:55 PM EDT Narrative Resulting Agency Comment Spec In Lab Jesenia Dolan MD HEMATOLOGY ORDERABL ES [facility] [place] [address] * (ABNORMAL) Hemogram (05/12/2017 11:49 PM EDT) White Blood Cell 3.0(L) 4.0 - 9.5 x10(3)/mc L [facility] Red Blood Cell 2.74(L) 4.58 - 5.54 x10(6)/mc L [facility] Hemoglobin 8.1(L) 13.7 - 16.5 gm/dL [facility] Hematocrit 23.1(L) 40.5 - 48.5 % [facility] Mean Cell Volume 84.3 82.9 - 93.1 [facility]AT[facility] Mean Cell Hemoglobin 29.6 27.5 - 32.1 pg [facility] Mean Cell Hemoglobin Concentration 35.1 32.0 - 35.7 gm/dL [facility] Platelet 166 145 - 357 x10(3)/mc L [facility] RDW Standard Deviation 44.8 36.0 - 45.0 [facility] RDW coefficient of variation 14.7(H) 11.4 - 13.8 % [facility] Mean Platelet Volume 10.1 7.6 - 12.9 [facility] LABORATORY NRBC% auto 0.0 % [facility] NRBC Absolute 0.000 0.000 - 0.000 x10(3)/mc L [facility] Blood specimen (specimen) 05/12/2017 11:49 PM EDT 05/12/2017 11:55 PM EDT Narrative Resulting Agency Comment Spec In Lab Jesenia Dolan MD HEMATOLOGY ORDERABL ES [facility] [place] [address] * (ABNORMAL) Basic Metabolic Panel (non-fasting) (05/12/2017 11:49 PM EDT) Glucose 102 65 - 199 mg/dL [facility] Comment:Diabetes: >=200 mg/d L plus symptoms Blood Urea Nitrogen 71(H) 10 - 20 mg/dL [facility] Creatinine 4.11(H) 0.80 - 1.50 mg/dL [facility] Sodium 144 135 - 145 mmol/L [facility] Potassium 3.4(L) 3.5 - 5.0 mmol/L [facility] Comment: Please note: ??Patients with WBC >100,000 may have falsely elevated Potassium levels. ??For accurate Potassium quantification in these patients send serum separator tube (gold top) for subsequent determinations. ??Contact the Clinical Chemistry Laboratory if there are any questions. Chloride 113(H) 98 - 107 mmol/L [facility] Carbon Dioxide 14(L) 22 - 31 mmol/L [facility] Anion Gap 17(H) 5 - 15 mmol/L [facility] Calcium 7.5(L) 8.5 - 10.5 mg/dL [facility] Est Glomerular Filtration Rate 15(L) >=60 [facility] Comment: The reported eGFR should be multiplied by 1.2 for patients. The MDRD is not an appropriate measure of renal function for patients with body mass extremes or in patients with acute kidney failure. [email or web address] Blood specimen (specimen) 05/12/2017 11:49 PM EDT 05/12/2017 11:55 PM EDT Narrative Resulting Agency Comment Spec In Lab Jesenia Dolan MD CHEMISTRY ORDERABLE S Performing Organization Address City/[facility]/ZIP Co de Phone Number [facility] [place] [address] * Transfuse RBC (05/12/2017 11:03 PM EDT) [...] RBC (05/12/2017 2:11 PM EDT) Dispensed? Yes [facility] Blood specimen (specimen) No Charge / Unknown 05/12/2017 2:11 PM EDT 05/12/2017 2:11 PM EDT Narrative Resulting Agency Comment Spec In Lab Jesenia Dolan MD BLOOD BANK PRODUCT ORDERABLES Performing Organization Address City/[facility]/[place] [address] * Prepare RBC (05/12/2017 2:10 PM EDT) Dispensed? Yes [facility] Blood specimen (specimen) 05/12/2017 2:10 PM EDT 05/12/2017 2:06 PM EDT Narrative Resulting Agency Comment Spec In Lab Jesenia Dolan MD BLOOD BANK PRODUCT ORDERABLES Performing Organization Address [facility] Co de Phone Number [facility] [place] [address] * Prepare thawed plasma (05/12/2017 2:05 PM EDT) Dispensed? Yes [facility] Blood specimen (specimen) 05/12/2017 2:05 PM EDT 05/12/2017 2:06 PM EDT Narrative Resulting Agency Comment Spec In Lab Jesenia Dolan MD BLOOD BANK PRODUCT ORDERABLES Performing Organization Address [facility] [place] [address] * (ABNORMAL) Prothrombin Time (05/12/2017 2:02 PM EDT) Prothrombin Time 27.5(H) 11.8 - 14.0 sec [facility] Comment: An INR <2.0 [...] International Normalization Ratio 2.6(H) 0.9 - 1.1 [facility] Blood specimen (specimen) 05/12/2017 2:02 PM EDT 05/12/2017 2:20 PM EDT Narrative Resulting Agency Comment Spec In Lab Jesenia Dolan MD HEMATOLOGY ORDERABL ES Performing Organization Address [facility] Co de Phone Number [facility] [place] [address] * (ABNORMAL) Magnesium (05/12/2017 11:56 AM EDT) Magnesium 0.61(L) 0.69 - 1.07 mmol/L [facility] Blood specimen (specimen) Venous Draw / Unknown 05/12/2017 11:56 AM EDT 05/12/2017 12:15 PM EDT Narrative Resulting Agency Comment Spec In Lab Jesenia Dolan MD CHEMISTRY ORDERABLE S [facility] [place] [address] * (ABNORMAL) Differential, Automated (05/12/2017 11:56 AM EDT) Neutrophil % 69.2 % [facility] Neutrophil Absolute 2.04 1.70 - 6.10 x10(3)/mc L [facility] Lymph % 13.9 % [facility] Lymphocytes Abs 0.4(L) 0.9 - 3.2 x10(3)/ L [facility] Monocyte % 14.9 % [facility] Monocyte Abs 0.4 0.3 - 0.9 x10(3)/mc L [facility] Eos % 1.4 % [facility] Eosinophils Abs 0.0 0.0 - 0.4 x10(3)/ L [facility] Basophil % 0.3 % [facility] Baso Absolute 0.0 0.0 - 0.1 x10(3)/mc L [facility] Immature Gran % 0.30 % [facility] Comment: Immature granulocytes(IG's)percentage and absolute count will include metamyelocytes, myelocytes, and promyelocytes. Blood smears from CBCs yielding IG's will be scanned manually for concordance. If this scan disagrees with the automated IG or if promyelocytes are noted, a manual differential will be performed. Immature Gran Absolute 0.01 0.00 - 0.04 x10(3)/mc L [facility] Blood specimen (specimen) 05/12/2017 11:56 AM EDT 05/12/2017 12:11 PM EDT Narrative Resulting Agency Comment Spec In Lab Jesenia Dolan MD HEMATOLOGY ORDERABL ES [facility] [place] [address] * (ABNORMAL) Hemogram (05/12/2017 11:56 AM EDT) White Blood Cell 3.0(L) 4.0 - 9.5 x10(3)/[facility] LABORATORY Red Blood Cell 2.49(L) 4.58 - 5.54 x10(6)/mc [facility] Hemoglobin 6.9(L) 13.7 - 16.5 gm/dL [facility] Hematocrit 21.6(L) 40.5 - 48.5 % [facility] Mean Cell Volume 86.7 82.9 - 93.1 [facility] Mean Cell Hemoglobin 27.7 27.5 - 32.1 pg [facility] Mean Cell Hemoglobin Concentration 31.9(L) 32.0 - 35.7 gm/dL [facility] Platelet 193 145 - 357 x10(3)/[facility] LABORATORY RDW Standard Deviation 48.7(H) 36.0 - 45.0 [facility] RDW coefficient of variation 15.4(H) 11.4 - 13.8 % [facility] Mean Platelet Volume 10.4 7.6 - 12.9 [facility] LAB[facility]ATORY NRBC% auto 0.0 % [facility] NRBC Absolute 0.000 0.000 - 0.000 x10(3)/[facility] Blood specimen (specimen) 05/12/2017 11:56 AM EDT 05/12/2017 12:11 PM EDT Narrative Resulting Agency Comment Spec In Lab Jesenia Dolan MD HEMATOLOGY ORDERABL ES [facility] [place] [address] * (ABNORMAL) Basic Metabolic Panel (non-fasting) (05/12/2017 11:56 AM EDT) Glucose 126 65 - 199 mg/dL [facility] Comment:Diabetes: >=200 mg/d L plus symptoms Blood Urea Nitrogen 80(H) 10 - 20 mg/dL [facility] Creatinine 4.31(H) 0.80 - 1.50 mg/dL [facility] Sodium 143 135 - 145 mmol/L [facility] Potassium 3.1(L) 3.5 - 5.0 mmol/L [facility] Comment: Please note: ??Patients with WBC >100,000 may have falsely elevated Potassium levels. ??For accurate Potassium quantification in these patients send serum separator tube (gold top) for subsequent determinations. ??Contact the Clinical Chemistry Laboratory if there are any questions. Chloride 115(H) 98 - 107 mmol/L [facility] Carbon Dioxide 12(L) 22 - 31 mmol/L [facility] Anion Gap 16(H) 5 - 15 mmol/L [facility] Calcium 7.6(L) 8.5 - 10.5 mg/dL [facility] Est Glomerular Filtration Rate 14(L) >=60 [facility] Comment: The reported eGFR should be multiplied by 1.2 for patients. The MDRD is not an appropriate measure of renal function for patients with body mass extremes or in patients with acute kidney failure. [email or web address] Blood specimen (specimen) 05/12/2017 11:56 AM EDT 05/12/2017 12:11 PM EDT Narrative Resulting Agency Comment Spec In Lab Jesenia Dolan MD CHEMISTRY ORDERABLE S [facility] [place] [address] * US Renal Transplant Right (05/12/2017 10:48 [...] 11:17 am) PATIENT INFO: ID #: ? [id number] ? : [birth year] (56 yrs) Name: ? CHRISTY Ginna AMBROSE ? Visit Date:05/12/2017 10:42 am PERFORMED BY: Performed By: ? Naz Smith RDMS Attending: ?Lemuel JONES, Devi Adams Resident: ? Danny Spears MD Referred By: ?JESENIA DOLAN Location: ? [place] SERVICE(S) PROVIDED: ??URTPR - Renal Transplant - Right - [id number] ? [id number] INDICATIONS: ??Evaluate for any evidence of hydronephrosis [...] 05/12/2017 11:17 am) PATIENT INFO: ID #: [id number] : [birth year] (56 yrs) Name: CHRISTY AMBROSE Visit Date:05/12/2017 10:42 am PERFORMED BY: Performed By: Naz Smith RDMS Attending: Devi Hdez MD Resident: Danny Spears MD Referred By: JESENIA DOLAN Location: [place] SERVICE(S) PROVIDED: URTPR - Renal Transplant - Right - [id number] INDICATIONS: Evaluate for any evidence of hydronephrosis [...] ABORH Recheck Status (05/12/2017 8:18 AM EDT) [facility] ABORH Type Recheck Completed [facility] Blood specimen (specimen) 05/12/2017 8:18 AM EDT 05/12/2017 8:36 AM EDT Narrative Resulting Agency Comment Spec In Lab Jesenia Dolan MD BLOOD BANK LAB RYAN CALERO [facility] Organization Address City/State/ZIP Co de Phone Number [facility] [place] [address] * Antibody screen (05/12/2017 8:18 AM EDT) [facility] Ab Screen Interp Negative [facility] Expires at [id number] on: 05/15/2017 [facility] Blood specimen (specimen) 05/12/2017 8:18 AM EDT 05/12/2017 8:36 AM EDT Narrative Resulting Agency Comment Spec In Lab Jesenia Dolan MD BLOOD BANK LAB RYAN CALERO Performing Organization Address [facility]/ZIP Co de Phone Number [facility] [place] [address] * ABO/Rh Typing (05/12/2017 8:18 AM EDT) ABORH Type A Pos [facility] Blood specimen (specimen) 05/12/2017 8:18 AM EDT 05/12/2017 8:36 AM EDT Narrative Resulting Agency Comment Spec In Lab Jesenia Dolan MD BLOOD BANK LAB RYAN CALERO Performing Organization Address [facility] Co de Phone Number [facility] [place] [address] * (ABNORMAL) Prothrombin Time (05/12/2017 7:33 AM EDT) Prothrombin Time 53.8(Crit ical) 11.8 - 14.0 sec [facility] Comment: Called by: anil, Read back by: Ilda kate, Date/Time:05/12/17 07:59. [...] International Normalization Ratio 5.9(H) 0.9 - 1.1 [facility] Blood specimen (specimen) 05/12/2017 7:33 AM EDT 05/12/2017 7:42 AM EDT Narrative Resulting Agency Comment Spec In Lab Flori A Donna [employer]PERATIONS MANAGER HEMATOLOGY ORDERABLE S Performing Organization Address City/[facility]/ZIP Co de Phone Number [facility] [place] [address] * Creatinine, urine, random (05/12/2017 6:20 AM EDT) Creatinine, Urine 120 mg/dL [facility] Urine specimen (specimen) 05/12/2017 6:20 AM EDT 05/12/2017 6:47 AM EDT Narrative Resulting Agency Comment Spec In Lab Jesenia Dolan MD URINE ORDERABLES Performing Organization Address [facility]/ZIP Co de Phone Number [facility] [place] [address] * Sodium, urine, random (05/12/2017 6:20 AM EDT) Sodium, Urine <20 mmol/L [facility] Urine specimen (specimen) 05/12/2017 6:20 AM EDT 05/12/2017 6:47 AM EDT Narrative Resulting Agency Comment Spec In Lab Jesenia Dolan MD URINE ORDERABLES Performing Organization Address [facility] Co de Phone Number [facility] [place] [address] * (ABNORMAL) _Urinalysis with microscopic (05/12/2017 6:20 AM EDT) Glucose, Urine Dipstick Negative Negative mg/dL [facility] Protein, Urine Dipstick 30(A) Negative mg/dL [facility] Bilirubin, Urine [...] HOSPITAL LABORATORY Leukocytes, Urine Dipstick Negative Negative [facility] LABORATORY Appearance, Urine Dipstick Clear Clear [facility] Specific [place] Urine Automated 1.015 1.002 - 1.030 [facility] Color, Urine Dipstick Yellow Yellow [facility] RBC, Urine <1 0 - 3 /HPF [facility] WBC, Urine 1 0 - 3 /HPF [facility] Squamous Epithelial Cells Raw Data, Urine <1 <=4 /HPF [facility] Hyaline Casts, Urine 4(H) 0 - 2 /LPF [facility] Urine specimen (specimen) 05/12/2017 6:20 AM EDT 05/12/2017 6:47 AM EDT Narrative Resulting Agency Comment Spec In Lab Jesenia Dolan MD URINE ORDERABLES Performing Organization Address City/State/[facility] Co de Phone Number [facility] [place] [address] * (ABNORMAL) Differential, Automated (05/12/2017 6:18 AM EDT) Neutrophil % 66.3 % [facility] Neutrophil Absolute 1.77 1.70 - 6.10 x10(3)/mc L [facility] Lymph % 18.7 % [facility] Lymphocytes Abs 0.5(L) 0.9 - 3.2 x10(3)/mc L [facility] Monocyte % 12.4 % [facility] Monocyte Abs 0.3 0.3 - 0.9 x10(3)/mc L [facility] Eos % 2.6 % [facility] Eosinophils Abs 0.1 0.0 - 0.4 x10(3)/mc L [facility] Basophil % 0.0 % [facility] Baso Absolute 0.0 0.0 - 0.1 x10(3)/[facility] LABORATORY Immature Gran % 0.00 % [facility] Comment: Immature granulocytes(IG's)percentage and absolute count will include metamyelocytes, myelocytes, and promyelocytes. Blood smears from CBCs yielding IG's will be scanned manually for concordance. If this scan disagrees with the automated IG or if promyelocytes are noted, a manual differential will be performed. Immature Gran Absolute 0.00 0.00 - 0.04 x10(3)/[facility] LABORATORY Blood specimen (specimen) 05/12/2017 6:18 AM EDT 05/12/2017 6:33 AM EDT Narrative Resulting Agency Comment Spec In Lab Jesenia Dolan MD HEMATOLOGY ORDERABL ES [facility] [place] [address] * (ABNORMAL) Hemogram (05/12/2017 6:18 AM EDT) White Blood Cell 2.7(L) 4.0 - 9.5 x10(3)/[facility] LABORATORY Red Blood Cell 2.47(L) 4.58 - 5.54 x10(6)/[facility] LABORATORY Hemoglobin 7.2(L) 13.7 - 16.5 gm/dL [facility] Hematocrit 21.3(L) 40.5 - 48.5 % [facility] Mean Cell Volume 86.2 82.9 - 93.1 fL [facility] Mean Cell Hemoglobin 29.1 27.5 - 32.1 pg [facility] Mean Cell Hemoglobin Concentration 33.8 32.0 - 35.7 gm/dL [facility] Platelet 188 145 - 357 x10(3)/[facility] LABORATORY RDW Standard Deviation 47.7(H) 36.0 - 45.0 fL [facility] RDW coefficient of variation 15.3(H) 11.4 - 13.8 % [facility] Mean Platelet Volume 10.3 7.6 - 12.9 fL [facility] NRBC% auto 0.0 % [facility] NRBC Absolute 0.000 0.000 - 0.000 x10(3)/mc L [facility] Blood specimen (specimen) 05/12/2017 6:18 AM EDT 05/12/2017 6:33 AM EDT Narrative Resulting Agency Comment Spec In Lab Jesenia Dolan MD HEMATOLOGY ORDERABL ES Performing Organization Address [facility] Co de Phone Number [facility] [place] [address] * Prealbumin (05/12/2017 6:18 AM EDT) Prealbumin 28 20 - 40 mg/dL [facility] Comment: Prealbumin levels are generally lower in the pediatric population; adult concentrations are usually attained near puberty. Blood specimen (specimen) 05/12/2017 6:18 AM EDT 05/12/2017 6:33 AM EDT Narrative Resulting Agency Comment Spec In Lab Jesenia Dolan MD CHEMISTRY ORDERABLE S Performing Organization Address [facility] Co de Phone Number [facility] [place] [address] * (ABNORMAL) Basic Metabolic Panel (non-fasting) (05/12/2017 6:18 AM EDT) Glucose 101 65 - 199 mg/dL [facility] Comment:Diabetes: >=200 mg/d L plus symptoms Blood Urea Nitrogen 82(H) 10 - 20 mg/dL [facility] Creatinine 4.93(H) 0.80 - 1.50 mg/dL [facility] Sodium 148(H) 135 - 145 mmol/L [facility] Potassium 3.3(L) 3.5 - 5.0 mmol/L [facility] Comment: Please note: ??Patients with WBC >100,000 may have falsely elevated Potassium levels. ??For accurate Potassium quantification in these patients send serum separator tube (gold top) for subsequent determinations. ??Contact the Clinical Chemistry Laboratory if there are any questions. Chloride 116(H) 98 - 107 mmol/L [facility] Carbon Dioxide 12(L) 22 - 31 mmol/L [facility] Anion Gap 20(H) 5 - 15 mmol/L [facility] Calcium 7.4(L) 8.5 - 10.5 mg/dL [facility] Est Glomerular Filtration Rate 12(L) >=60 [facility] Comment: The reported eGFR should be multiplied by 1.2 for patients. The MDRD is not an appropriate measure of renal function for patients with body mass extremes or in patients with acute kidney failure. http://Plink/DHnkdep http://Plink/DHMCnkf Blood specimen (specimen) 05/12/2017 6:18 AM EDT 05/12/2017 6:33 AM EDT Narrative Resulting Agency Comment Spec In Lab Jesenia Dolan MD CHEMISTRY ORDERABLE S [facility] [place] [address] * Tacrolimus level (05/12/2017 6:18 AM EDT) Tacrolimus <3.0 ng/mL [facility] Comment: Trough therapeutic: ??5-15 ng/mL Performed by ultra-performance liquid chromatography tandem mass spectrometry (UPLCMS/MS). This test was developed and its performance characteristics determined by [facility]. It has not been cleared [...] MD CHEMISTRY ORDERABLE S Performing Organization Address City/[facility]/ZIP Co de Phone Number [facility] [place] [address] * Phosphorus (05/12/2017 6:18 AM EDT) Phosphorus 4.4 2.5 - 4.5 mg/dL [facility] Blood specimen (specimen) 05/12/2017 6:18 AM EDT 05/12/2017 6:33 AM EDT Narrative Resulting Agency Comment Spec In Lab Jesenia Dolan MD CHEMISTRY ORDERABLE S Performing Organization Address [facility] Co de Phone Number [facility] [place] [address] * Hemoglobin A1c (05/12/2017 6:18 AM EDT) Hemoglobin A1c 5.5 4.3 - 5.6 % [facility] Comment: Reference Range: 4.3 - [...] Mellitus, Diabetes Care 2013; 36: Suppl. 1, S67-18 Estimated Average Glucose 111 mg/dL [facility] Comment: eAG equivalents for HbA1c [...] into estimated average glucose values. ??Diabetes Care 2008:31(8):3549-3934. Blood specimen (specimen) 05/12/2017 6:18 AM EDT 05/12/2017 6:32 AM EDT Narrative Resulting Agency Comment Spec In Lab Jesenia Dolan MD CHEMISTRY ORDERABLE S [facility] [place] [address] * (ABNORMAL) Hepatic Function Panel (05/12/2017 6:18 AM EDT) Protein, Total 4.8(L) 6.1 - 8.0 gm/dL [facility] Albumin 3.0(L) 3.2 - 5.2 gm/dL [facility] Aspartate Aminotransferase 11 0 - 39 unit/L [facility] Alanine Aminotransferase 10 0 - 55 unit/L [facility] Alkaline Phosphatase 101 40 - 120 unit/L [facility] Bilirubin, Total 0.3 0.2 - 1.3 mg/dL [facility] Bilirubin, Direct 0.1 0.0 - 0.3 mg/dL [facility] Blood specimen (specimen) 05/12/2017 6:18 AM EDT 05/12/2017 6:33 AM EDT Narrative Resulting Agency Comment Spec In Lab Jesenia Dolan MD CHEMISTRY ORDERABLE S Performing Organization Address City/[facility]/ZIP Co de Phone Number [facility] [place] [address] * TSH [place] (05/12/2017 6:18 AM EDT) Thyroid Stimulating Hormone 3.21 0.27 - 4.20 mlU/ML [facility] Blood specimen (specimen) 05/12/2017 6:18 AM EDT 05/12/2017 6:33 AM EDT Narrative Resulting Agency Comment Spec In Lab Jesenia Dolan MD CHEMISTRY ORDERABLE S Performing Organization Address [facility] Co de Phone Number [facility] [place] [address] * (ABNORMAL) XR Chest PA & Lateral [...] Lead (05/11/2017 9:18 PM EDT) Pathologist [facility] Ventricular rate 48 BPM MUSE SYSTEM Atrial Rate 48 BPM MUSE SYSTEM P-R Interval 132 ms MUSE SYSTEM QRS Duration 98 ms MUSE SYSTEM Q-T Interval 448 ms MUSE SYSTEM QTC Calculated (Bezet) 400 ms MUSE SYSTEM Calculated P Pierson 54 degrees MUSE SYSTEM Calculated R Pierson 56 degrees MUSE SYSTEM Calculated T Pierson 47 degrees MUSE SYSTEM INTERPRETATION Marked sinus bradycardia Abnormal ECG When compared with ECG of 26-NOV-2002 10:23, T wave amplitude has decreased in Lateral leads Confirmed by Carter Pan MD ([id number]) on 05/12/2017 3:10:32 PM MUSE SYSTEM 05/11/2017 9:18 PM EDT 05/12/2017 3:10 PM EDT Jesenia Dolan MD ECG ORDERABLES MUSE SYSTEM * (ABNORMAL) Differential, Automated (05/11/2017 8:30 PM EDT) Pathologist [facility] Neutrophil % 65.9 % [facility] Neutrophil Absolute 2.58 1.70 - 6.10 x10(3)/mc L [facility] Lymph % 16.1 % [facility] Lymphocytes Abs 0.6(L) 0.9 - 3.2 x10(3)/mc L [facility] Monocyte % 15.9 % [facility] Monocyte Abs 0.6 0.3 - 0.9 x10(3)/mc L [facility] Eos % 1.5 % [facility] Eosinophils Abs 0.1 0.0 - 0.4 x10(3)/mc L [facility] Basophil % 0.3 % [facility] Baso Absolute 0.0 0.0 - 0.1 x10(3)/mc L [facility] Immature Gran % 0.30 % [facility] Comment: Immature granulocytes(IG's)percentage and absolute count will include metamyelocytes, myelocytes, and promyelocytes. Blood smears from CBCs yielding IG's will be scanned manually for concordance. If this scan disagrees with the automated IG or if promyelocytes are noted, a manual differential will be performed. Immature Gran Absolute 0.01 0.00 - 0.04 x10(3)/mc L [facility] Blood specimen (specimen) 05/11/2017 8:30 PM EDT 05/11/2017 8:42 PM EDT Narrative Resulting Agency Comment Spec In Lab Jesenia Dolan MD HEMATOLOGY ORDERABL ES [facility] [place] [address] * (ABNORMAL) Hemogram (05/11/2017 8:30 PM EDT) White Blood Cell 3.9(L) 4.0 - 9.5 x10(3)/ L [facility] Red Blood Cell 2.95(L) 4.58 - 5.54 x10(6)/mc L [facility] Hemoglobin 8.5(L) 13.7 - 16.5 gm/dL [facility] Hematocrit 26.0(L) 40.5 - 48.5 % [facility] Mean Cell Volume 88.1 82.9 - 93.1 fL [facility] Mean Cell Hemoglobin 28.8 27.5 - 32.1 pg [facility] Mean Cell Hemoglobin Concentration 32.7 32.0 - 35.7 gm/dL [facility] Platelet 214 145 - 357 x10(3)/mc L [facility] RDW Standard Deviation 49.6(H) 36.0 - 45.0 fL [facility] RDW coefficient of variation 15.6(H) 11.4 - 13.8 % [facility] Mean Platelet Volume 10.2 7.6 - 12.9 fL [facility] NRBC% auto 0.0 % [facility] NRBC Absolute 0.000 0.000 - 0.000 x10(3)/mc L [facility] Blood specimen (specimen) 05/11/2017 8:30 PM EDT 05/11/2017 8:42 PM EDT Narrative Resulting Agency Comment Spec In Lab Jesenia Dolan MD HEMATOLOGY ORDERABL ES [facility] [place] [address] * (ABNORMAL) Basic Metabolic Panel (non-fasting) (05/11/2017 8:30 PM EDT) Glucose 110 65 - 199 mg/dL [facility] Comment:Diabetes: >=200 mg/d L plus symptoms Blood Urea Nitrogen 84(H) 10 - 20 mg/dL [facility] Creatinine 4.93(H) 0.80 - 1.50 mg/dL [facility] Sodium 144 135 - 145 mmol/L [facility] Potassium 3.3(L) 3.5 - 5.0 mmol/L [facility] Comment: Please note: ??Patients with WBC >100,000 may have falsely elevated Potassium levels. ??For accurate Potassium quantification in these patients send serum separator tube (gold top) for subsequent determinations. ??Contact the Clinical Chemistry Laboratory if there are any questions. Chloride 113(H) 98 - 107 mmol/L [facility] Carbon Dioxide 12(L) 22 - 31 mmol/L [facility] Anion Gap 19(H) 5 - 15 mmol/L [facility] Calcium 8.1(L) 8.5 - 10.5 mg/dL [facility] Est Glomerular Filtration Rate 12(L) >=60 [facility] Comment: The reported eGFR should be multiplied by 1.2 for patients. The MDRD is not an appropriate measure of renal function for patients with body mass extremes or in patients with acute kidney failure. http://[employer].Emailage/DHnkdep http://Plink/DHMCnkf Blood specimen (specimen) 05/11/2017 8:30 PM EDT 05/11/2017 8:42 PM EDT Narrative Resulting Agency Comment Spec In Lab Jesenia Dolan MD CHEMISTRY ORDERABLE S Performing Organization Address [facility] Co de Phone Number [facility] [place] [address] * Lactate, whole blood, send to lab (05/11/2017 8:30 PM EDT) Lactate WB 1.2 0.5 - 2.2 mmol/L [facility] Blood specimen (specimen) 05/11/2017 8:30 PM EDT 05/11/2017 8:40 PM EDT Narrative Resulting Agency Comment Spec In Lab Jesenia Dolan MD CHEMISTRY ORDERABLE S Performing Organization Address [facility] Co de Phone Number [facility] [place] [address] documented in this encounter Visit Diagnoses Not [...] (Top), 3 TIMES DAILY, First dose on 05/15/17 at 1700, Until Discontinued, To back Given 05/16/2017 8:36 AM EST Given 05/15/2017 8:16 PM EDT Given 05/15/2017 5:19 PM EDT epoetin kerry (EPOGEN;PROCRIT) injection 40,000 Units 40,000 [...] on Wed05/15/17 at 1045, Until Discontinued, Routine Given 05/16/2017 8:35 AM EST 5,000 Unit s Given 05/15/2017 8:17 PM EDT 5,000 Units Given 05/15/2017 12:04 PM EDT 5,000 Units Right Lower Quadrant hydrALAZINE (APRESOLINE) tablet 25 mg 25 mg, Oral, 2 TIMES DAILY, First dose (after last modification) on Wed05/15/17 at 2100, Until Discontinued, Take with Food, Routine Given 05/16/2017 8:35 AM EST 25 mg Given 05/15/2017 8:16 PM EDT 25 mg levETIRAcetam (KEPPRA) tablet 500 mg 500 [...] Given 05/14/2017 8:41 AM EDT 88 mcg mycophenolate (CELLCEPT) capsule 250 mg 250 mg, [...] Given 05/15/2017 9:00 AM EDT 250 mg ondansetron (ZOFRAN) injection [...] Given 05/15/2017 9:00 AM EDT 40 mg sodium bicarbonate tablet 1,300 mg 1,300 mg, [...] Given 05/15/2017 9:00 AM EDT 5 mLs tacrolimus (PROGRAF) capsule [...] Torres RN) 0859 (Given - Provider: Nanda Mg RN) 0835 (Given - Provider: Nancy Ahumada, SAVANNA) camphor-menthol (SARNA) lotion Topical (Top), 3 TIMES DAILY, First dose on 05/15/17 at 1700, Until Discontinued, To back 1719 (Given - Provider: Nanda Mg RN)2015 (Given - Provider: Rosita Aranda RN) 0836 [...] on 05/15/17 at 1045, Until Discontinued, Routine 1204 (Given [...] RN)2015 (Given - Provider: Rosita Aranda RN) 0835 [...] meal)., Routine 0843 (Given - Provider: Selma Torres [...] RN) 0900 (Given - Provider: Nanda Mg, SAVANNA)2016 (Given [...] Torres RN)1218 (New Bag - Provider: Nanda Mg, SAVANNA)1327 (Restarted - Provider: Nanda Mg, SAVANNA)1332 (New Bag - Provider: Nanda Mg, SAVANNA)1359 (Stopped - Provider: Nanda Mg RN)1503 (New Bag - Provider: Nanda Mg RN [...] RN) 0018 (Stopped - Provider: Maria E Glavan RN)0033 (New Bag - Provider: Maria E Galvan RN)0133 (Stopped - Provider: Maria E Galvan RN) sodium bicarbonate tablet 1,300 mg 1,300 mg, Oral, 3 TIMES DAILY, First dose on Wed05/12/17 at 1500, Until Discontinued, Routine 0842 (Given - Provider: Selma Torres RN)1501 (Given - Provider: Nanda Mg RN)2014 (Given - Provider: Maria E Galvan RN) 0858 (Given - Provider: Nanda Mg RN)1515 (Given - Provider: Nanda Mg RN)2016 (Given - Provider: Rosita Aranda RN) 0835 (Given - Provider: Nancy Ahumada, SAVANNA) sodium chloride 0.9 % flush 5 mL 5 mL, Intravenous, 2 TIMES DAILY, First dose on Wed05/11/17 at 2100, Until Discontinued, Routine 0844 (Given - Provider: Selma Torres RN)2014 (Given - Provider: Maria E Galvan RN) 0900 (Given - Provider: Nanda Mg RN)2017 (Given - Provider: Rosita Aranda RN) 0836 [...] Aranda RN) 0842 (Given - Provider: Nancy Ahumada RN) warfarin (COUMADIN) daily order reminder(Linked Group 2) Oral, EVERY 24 HOURS, First dose (after last modification) on Mariza 05/13/17 at 1500, Until Discontinued, Pharmacist-managed warfarin, Medication Name: Warfarin, Hospitalist Service? Yes, Treatment Plan: Continuation of Therapy, Indication for Anticoagulation: Deep Vein Thrombosis, INR Goal Range: 2-3, Anticipated Duration of Therapy: Indefinite 1500 (Dose held per treatment team - Provider: Selma Torres RN) 1500 (Dose held per treatment team - Provider: Nanda Mg RN) Continuous Medication Order 05/14/2017 05/15/2017 05/16/2017 dextrose 5% and sodium chloride 0.45% infusion (CANCELED) 125 mL/hr, Intravenous, CONTINUOUS, Starting on Wed05/12/17 at 1115, Until 05/15/17 at 1426 0339 (New Bag - Provider: Yasmeen Woodall RN)0900 (Rate/Dose Verify - Provider: Selma Torres RN)1904 (New Bag - Provider: Selma Torres RN) [...] PRN, Starting on Wed05/11/17 at 2359, Until 05/16/17 at 1545, Nausea, Routine 0205 (Given - Provid er: Rosita Aranda RN) sodium chloride 0.9 % flush 5-20 mL 5-20 mL, Intravenous, EVERY 1 MIN PRN, Starting on Tu05/11/17 at 1951, Until 05/16/17 at 1545, flush, [...] No documented in this encounter Care Teams Director Of Materials Management Relationship Specialty Start Date End Date Carroll Fuentes DO [address] [place] [address] PCP - General 09/23/11 10/20/22 documented as of this encounter
--- OUTSIDE RECORDS SUMMARY | 2024-04-22 11:11 | XMS_ITS | Encounter Summary ---
[place] [address] Care Team Providers Care Audiology Director Name Role Phone Carroll Fuentes DO Primary Care Provider [phone] Reason for Visit * Reason Onset Date Comments Medication Refill 08/14/2016 Encounter Details Date Type Department Care Team (Late st Contact Info) Description 08/14/2016 Refill [place] [id number] Autumn Burgos, RN S/P kidney transplant Social History Tobacco Use [...] transplant documented in this encounter Care Teams Audiology Director Relationship Specialty Start Date End Date Carroll Fuentes DO [address] [place] [address] PCP - General 09/23/11 10/20/22 documented as of this encounter
--- OUTSIDE RECORDS SUMMARY | 2024-04-22 11:11 | XMS_ITS | Encounter Summary ---
Author Organization Formerly [facility] [place] [address] Care Team Providers Care Supervisor Public Message Service Name Role Phone AlfredoCarroll allison Primary Care Provider [phone] Reason for Visit * Auth/Cert Specialty Diagnoses / Procedures Referred By Shashi ko Referred To Contact Diagnoses TRISTIAN (acute kidney injury) ACUTE ON CHRONIC RENAL FAILURE Procedures emergency IPI Referral ID Status Reason Start Date Expiration Date Visits Re quested Visits Authorized [id number] 1 1 Encounter Details Date Type Department Care Team (Late st Contact Info) Description 05/13/2017 5:23 PM EDT Anesthesia [place] [address] Odalis Lewis MD [facility] [place] [address] Agustina Mendoza CRNA [facility] [place] [address] Anesthesia Record Procedure Summary Procedure Name Responsible Anesthesiologist Anesthesia Start Time Anesthesia Stop Time EGD WITH BIOPSY (WRVU 2.39) (Trunk) Odalis Lewis MD 05/13/17 1723 05/13/17 1804 Events Date Time Event Comment 05/13/2017 1722 1723 Start 1725 AN Verify 1726 An Start Data 1731 An Induction 1733 Anesthesia Ready 1758 an stop data 1804 Recovery or ICU Handoff Randa ent care was transferred to the destination unit staff after review of the patient's medical history, current anesthetic/surgical status and plan, according to the Provider Handoff Checklist. 1804 Stop Meds Name Total IV Lidocaine 40 mg Propofol 300 mg ePHEDrine 5 mg Lactated Ringers 300 mL * Agents Name O2 * Blood No blood administrations on file. Lines, Drains, and Airways Type Details Placement Removal Incision 02/05/16; face; 04/19/18; 92502/05/16 0000 by Jennifer Rueda RN 04/19/18 09 by Karuna Nagel RN Incision 02/20/16; neck; vertical; 04/19/18; 92602/20/16 0000 by Dee Dee Servin RN 04/19/18 09 by Karuna Nagel RN Incision 02/20/16; thigh; oth er (see comments) (skin graft donor site); 04/19/18; 92602/20/16 0000 by Dee Dee Servin RN 04/19/18 09 by Karuna Nagel RN (RETIRED) Peripheral IV Line - Single Lumen 05/11/17; 2033; cephalic vein (lateral side of arm), right; sfjs-sld-etbxiz catheter system; 20 gauge, 1 in length; intradermal injection, tolerated well; 05/16/17; 1344 05/11/17 2034 by Autumn Andersen LPN 05/16/17 1344 by Nancy Ahumada RN (RETIRED) Peripheral IV Line - Single Lumen 05/12/17; 0907; basilic vein (medial side of arm), right; wpxk-pws-mmwnzm catheter system; 22 gauge, 1 in length; tony pederson rn vas; tolerated well; 0; 05/16/17; 1345 05/12/17 0907 by Ajay Pederson RN 05/16/17 1345 by Nancy Ahumada RN Wound 05/12/17; 1259; wris t; 05/16/17; 1345 05/12/17 1259 by Patty Harding RN 05/16/17 1345 by Nancy Ahumada RN (RETIRED) Peripheral IV Line - Single Lumen 05/12/17; 1711; basilic vein (medial side of arm), right; yaie-xzv-qjglwh catheter system; 20 gauge, 1 in length; Shorty Rashid RN, VAS; intradermal injection, tolerated well, appears comfortable; 2; basilic vein (medial side of arm), right; 05/16/17; 1345 05/12/17 1711 by Venus Rashid RN 05/16/17 1345 by Nancy Ahumada RN documented in this encounter Social History [...] OR Notes * Anesthesia Postprocedure Evaluation - Odalis Lewis MD - 05/13/2017 6:14 PM EDT [facility] Department of Anesthesiology Post-procedure Note Patient: Adama Ram Procedure Summary Date Anesthesia Start Anesthesia Stop Room / Location 05/13/17 1723 1804 [facility] ENDO 3 / [facility] ENDOSCOPY Procedure Diagnosis Surgeon Responsible Provider EGD WITH BIOPSY (WRVU 2.49) (N/A Trunk) (Hematemesis; Per Abimael; Danielito) Aditya Barrera MD O'Flaherty, Jennifer E, MD All Anesthesia Providers: Anesthesiologist: Odalis Lewis MD PUNCH BOX TENDER: Agustina Mendoza CRNA Most Recent Vitals: 05/13/17 1607 BP: 125/67 Pulse: (!) 48 Resp: 16 Temp: SpO2: 98% Pain Patient Location: PACU/SD Level of Consciousness: Awake and Alert Pain Management: Satisfactory Analgesia PONV: None Cardiovascular Status: At Baseline Respiratory Status: At Baseline Postoperative Fluid Status: Intravascular EUvolemia Possible Anesthetic Complications: NONE apparent at time of evaluation Final Primary Anesthesia Type: MAC (The anesthetic type performed was the same as planned.) Comments: * Anesthesia Preprocedure Evaluation - Odalis Lewis MD - 05/13/2017 5:26 PM EDT Pre-Anesthesia Evaluation for: Adama milian 56 y.o. male. Procedure(s): EGD, UPPER GI ENDOSCOPY Patient Active Problem List Diagnosis ??? TRISTIAN (acute kidney injury) ??? Weight loss ??? CKD (chronic kidney disease) stage 4, GFR 15-29 ml/min ??? 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 [facility] current use of immunosuppressive drug ??? [facility]?? PRO REPAIR INTERMEDIATE S/A/T/E 2.6-7.5 CM 04/19/2012 REPAIR INTERMEDIATE WOUND, (NO HANDS OR FEET) 2.6 TO 7.5CM, UPPER EXTREMITY performed by SABRINA SANCHEZ at [facility] OR ? ? PRO SPLIT GRFT, HEAD, FAC, HAND, FEET <100SQCM N/A 02/20/2016 SPLIT THICKNESS SKIN SPLIT GRAFT,100SQ CM OR LESS, NECK performed by Miguel Angel Moreno MD at [facility] MAIN OR ??? PRO VASCULAR SURGERY PROCEDURE UNLIST Left 11/20/2015 LIGATION\REPAIR AV FISTULA performed by Camilo Ireland MD at [facility] OR ??? PRO VASCULAR SURGERY PROCEDURE UNLIST Left 11/20/2015 EXCISION VEIN FROM HAND performed by Camilo Ireland MD at [facility] OR ??? US RENAL TRANSPLANT BIOPSY 12/31/2010 [...] been reviewed. Physical Exam: Most Recent Vitals: 05/13/17 1607 BP: 125/67 Pulse: (!) 48 Resp: 16 Temp: SpO2: 98% Body mass index is 22.56 kg/(m^2). Height: 177.8 cm (5' 10) Weight - Scale: 71.3 kg (157 lb 3.2 oz) Airway Assessment: Mallampati: II TM distance: <3 FB Neck ROM: full Cardiovascular Assessment: Pulmonary Assessment: Dental Assessment: (+) upper dentures Comment: partials Misc Assessment: IV access: Peripheral line Anesthesia Plan: ASA 3 MAC, with a(n) intravenous induction Plan propofol sedation with RM. Plans and risks discussed. Questions answered. Region - Other Informed Consent: Anesthetic plan and risks discussed with patient. Plan discussed with PUNCH BOX TENDER and attending. PAT Staff Note documented in this encounter Plan of Treatment Not on file documented as of this encounter Visit Diagnoses Not on filedocumented in this encounter Administered Medications Inactive Administered Medications - up to 3 most recent administrations Medication Order MAR Action Action Date Dose Rate Site ePHEDrine 5 mg/mL multi-dose injection PRN, Starting on Mariza 05/13/17 at 1742, Until Mariza 05/13/17 at 1809, Anesthesia Intra-op, Routine Given 05/13/2017 5:42 PM EDT 5 mg lactated Ringers infusion CONTINUOUS PRN, Starting on Mariza 05/13/17 at 1723, Until Mariza 05/13/17 at 1809, Anesthesia Intra-op New Bag 05/13/2017 5:23 PM EDT lidocaine (PF) (XYLOCAINE) 100 mg/5 mL (2 %) injection PRN, Starting on Mariza 05/13/17 at 1731, Until Mariza 05/13/17 at 1809, Anesthesia Intra-op, Routine Given 05/13/2017 5:31 PM EDT 40 mg propofol (DIPRIVAN) 10 mg/mL bolus injection (Anesthesia) PRN, Starting on Mariza 05/13/17 at 1731, Until Mariza 05/13/17 at 1809, Anesthesia Intra-op Given 05/13/2017 5:52 PM EDT 30 mg Given 05/13/2017 5:46 PM EDT 30 mg Given 05/13/2017 5:40 PM EDT 30 mg documented in this encounter Care Teams Supervisor Public Message Service Relationship Specialty Start Date End Date Carroll Fuentes DO [address] [place] [address] PCP - General 09/23/11 10/20/22 documented as of this encounter
--- OUTSIDE RECORDS SUMMARY | 2024-04-22 11:11 | XMS_ITS | Encounter Summary ---
Author Organization [facility] [place] [address] Care Team Providers Care Pen Tender Name Role Phone AlfredoCarroll allison Primary Care Provider Encounter Details Date Type Department Care Team (Latest Contact Info) Description 09/09/2016 7:50 PM EST - 09/09/2016 11:59 PM [facility] [place] [address] Discharge Disposition: Home Social History Tobacco Use [...] a day 60 capsule 11 05/04/2016 11/03/2016 levETIRAcetam (KEPPRA) 500 mg Tablet take 1 tablet by mouth every morning and 2 tablets by mouth every evening 90 tablet 5 02/13/2016 10/13/2016 calciTRIol (ROCALTROL) 0.5 mcg Capsule Take 1 [...] Date/Time Associated Diagnosis Comments TACROLIMUS LEVEL Routine 09/09/2016 1:40 PM EST documented in this encounter Results * Tacrolimus level (09/09/2016 1:40 PM EST) Tacrolimus 4.8 ng/mL [facility] Comment: Trough therapeutic: ??5-15 ng/mL Performed by ultra-performance liquid chromatography tandem mass spectrometry (UPLCMS/MS). Blood specimen (specimen) Venous Draw / Unknown 09/09/2016 1:40 PM EST 09/10/2016 7:15 AM EST Narrative Resulting Agency Comment Spec In Lab Anup Hawkins MD CHEMISTRY ORDERAB LES [facility] [place] [id number] documented in this encounter Visit Diagnoses Not on filedocumented in this encounter Care Teams Pen Tender Relationship Specialty Start Date End Date Carroll Fuentes DO [address] [place] [address] PCP - General 09/23/11 10/20/22 documented as of this encounter
--- OUTSIDE RECORDS SUMMARY | 2024-04-22 11:11 | XMS_ITS | Encounter Summary ---
Author Organization Formerly [facility] [place] [address] Care Team Providers Care Waterproof Bag Cutting Machine Operator Name Role Phone AlfredoCarroll allison Primary Care Provider [phone] Encounter Details Date Type Department Care Team (Late st Contact Info) Description 11/30/2016 Telephone [place] [id number] Crystal Brown CMA Social History Tobacco Use [...] Telephone Encounter - Crystal Brown CMA - 11/30/2016 3:12 PM EDT External labs for 24 hours urine(s) have been faxed to [phone] * Telephone Encounter - Crystal Brown CMA - 11/30/2016 3:12 PM EDT ----- Message from Krysta Perea sent at 11/30/2016 12:38 PM EDT ----- Patient dropped off 2 urine jugs and left. They need lab orders. Venus at [facility] [phone] phone; [phone] fax documented in this encounter Plan of Treatment Not on file documented as of this encounter Visit Diagnoses Not on filedocumented in this encounter Care Teams Waterproof Bag Cutting Machine Operator Relationship Specialty Start Date End Date Carroll Fuentes DO [address] [place] [address] PCP - General 09/23/11 10/20/22 documented as of this encounter
--- OUTSIDE RECORDS SUMMARY | 2024-04-22 11:11 | XMS_ITS | Encounter Summary ---
Author Organization [facility] Address [facility] [place] [address] Care Team Providers Care Foreman Shipping Department Name Role Phone AlfredoCarroll allison Primary Care Provider [phone] Reason for Visit * Reason Comments Medication Refill Encounter Details Date Type Department Care Team (Late st Contact Info) Description 01/29/2017 Refill [place] [address] Anup Hawkins MD [facility] [place] [address] H/O kidney transplant Social History Tobacco Use [...] Telephone Encounter - Crystal Brown CMA - 01/29/2017 3:15 PM EDT Per office note 11/26/16, patient needs to RTC for 6 mth f/u appt. documented in this encounter Plan of Treatment Not on file documented as of this encounter Visit Diagnoses Diagnosis H/O kidney transplant Kidney replaced by transplant documented in this encounter Care Teams Foreman Shipping Department Relationship Specialty Start Date End Date Carroll Fuentes DO [address] [place] [address] PCP - General 09/23/11 10/20/22 documented as of this encounter
--- OUTSIDE RECORDS SUMMARY | 2024-04-22 11:12 | XMS_ITS | Encounter Summary ---
Author Organization [facility] Address [facility] [place] [address] Care Team Providers Care Government Minister Name Role Phone Alfredo Carroll MIX Primary Care Provider [phone] Reason for Visit * Reason Onset Date Comments Pre Procedure Call 04/28/2016 Encounter Details Date Type Department Care Team (Late st Contact Info) Description 04/28/2016 Telephone Dermatology at [facility] [address] [place] [address] Lalitha Shannon LPN Pre Procedure Call Social History Tobacco Use Types Packs/Day Years [...] encounter Miscellaneous Notes * Telephone Encounter - Lalitha Shannon LPN - 04/28/2016 2:27 PM EDT Pre - OP Excision Phone Call Date of Call: 04/28/16 Unable to reach Adama Ram by phone to discuss pre-op procedure instructions. Mailbox full on cellphone, message left with mother on her phone to have Adama call us. Lalitha Shannon LPN documented in this encounter Plan of Treatment Not on file documented as of this encounter Visit Diagnoses Not on filedocumented in this encounter Care Teams Government Minister Relationship Specialty Start Date End Date Carroll Fuentes DO [address] [place] [address] PCP - General 09/23/11 10/20/22 documented as of this encounter
--- OUTSIDE RECORDS SUMMARY | 2024-04-22 11:12 | XMS_ITS | Encounter Summary ---
Author Organization [facility] Address [facility] [place] [address] Care Team Providers Care Gamewell Operator Name Role Phone AflredoCarroll allison Primary Care Provider Encounter Details Date Type Department Care Team (Latest Contact Info) Description 02/10/2016 9:12 PM EDT - 02/10/2016 11:59 PM EDT Hospital [place] [address] Discharge Disposition: Home Social History Tobacco Use [...] Sig Dispensed Refills Start Date End Date amoxicillin-clavulana te (AUGMENTIN) 875-125 mg Tablet Take 1 tablet by mouth 2 times daily for 7 days. 14 tablet 02/06/2016 02/13/2016 acetaminophen (TYLENOL) 500 mg Tablet Take 2 tablets by mouth every 8 hours. 30 tablet 1 02/06/2016 06/02/2017 mycophenolate (CELLCEPT) 250 mg CapsuleIndications:S/ P kidney transplant Take 3 capsules by mouth 2 times daily. Kidney Transplant Z94.0. Transplant Date; 11-26-02 180 capsule 11 02/03/2016 03/17/2016 DILTiazem (DILTIAZEM CD) 120 mg Capsule, Sust. Release 24 hr take 1 capsule by mouth once daily 90 capsule 3 01/31/2016 01/29/2017 allopurinol (ZYLOPRIM) 100 mg TabletIndications:Hig h level of uric acid in blood TAKE ONE AND A HALF TABLETS BY MOUTH ONCE DAILY 45 tablet 5 12/25/2015 07/09/2016 losartan (COZAAR) 25 mg Tablet take 1 tablet by mouth once daily 90 tablet 3 12/12/2015 11/26/2016 hydrALAZINE (APRESOLINE) 50 mg Tablet take 1 tablet by mouth twice a day 180 tablet 3 12/06/2015 03/09/2017 calciTRIol (ROCALTROL) 0.5 mcg Capsule Take 1 capsule by mouth daily. 30 capsule 11 11/13/2015 02/12/2016 levETIRAcetam (KEPPRA) 500 mg Tablet take 1 tablet by mouth every morning and 2 tablets by mouth every evening 90 tablet 0 10/24/2015 02/12/2016 PROGRAF 1 mg Capsule Take 1 capsule by mouth 2 times daily. Kidney replaced by transplant 11/26/2002. Z94.0 60 capsule 6 09/13/2015 03/17/2016 warfarin (COUMADIN) 5 mg tablet Take 1 [...] Procedure Name Priority Date/Time Associated Diagnosis Comments ORDS - PROVIDER CARE SCAN 02/22/2016 12:00 AM EDT TACROLIMUS LEVEL Routine 02/10/2016 10:2 0 AM EDT documented in this encounter Results * SCAN DOC: ORDS - PROVIDER CARE (02/22/2016 12:00 AM EDT) Scanning Provider MEDIA MGR SCAN EXT O RDR/RSLT * Tacrolimus level (02/10/2016 10:20 AM EDT) Tacrolimus 6.9 ng/mL [facility] Comment: Trough therapeutic: ??5-15 ng/mL Performed by ultra-performance liquid chromatography tandem mass spectrometry (UPLCMS/MS). Blood specimen (specimen) Venous Draw / Unknown 02/10/2016 10:20 AM EDT 02/11/2016 8:04 AM EDT Narrative Resulting Agency Comment Spec In Lab Anup Hawkins MD CHEMISTRY ORDERAB LES [facility] [place] [address] documented in this encounter Visit Diagnoses Not on filedocumented in this encounter Care Teams Gamewell Operator Relationship Specialty Start Date End Date Carroll Fuentes DO [address] [place] [address] PCP - General 09/23/11 10/20/22 documented as of this encounter
--- OUTSIDE RECORDS SUMMARY | 2024-04-22 11:12 | XMS_ITS | Encounter Summary ---
Author Organization Replaced By [facility] Address [facility] [place] [address] Care Team Providers Care Pizza Delivery Driver Name Role Phone Carroll Fuentes DO Primary Care Provider [phone] Reason for Visit * Reason Comments Squamous Cell Carcinoma Encounter Details Date Type Department Care Team (Late st Contact Info) Description 04/27/2016 1:45 PM EDT Office Visit Dermatology at [facility] [address] [place] [address] Alexander Sage MD [facility] [address] [place] [address] History of SCC (squamous cell carcinoma) of skin; Neoplasm of skin; Renal transplant recipient Social History [...] this encounter Patient Instructions * Patient Instructions* Erika Rivera LPN - 04/27/2016 1:45 PM EDT Increase risk of skin cancer with history of transplant and history of SCC Wear sunscreen and hat when outside Use plain Vaseline on skin Continue to use compression stockings Return Wednesday at 1 pm for removal of the lesions on your back Return every six months for follow up documented in this encounter Progress Notes * Erika Rivera LPN - 04/27/2016 1:45 PM EDT Images from the original note were not included. DERMATOLOGY CONSULT NOTE Date of service: 04/27/2016 Adama Ram : 1960 Provider: Alexander Sage MD Chief Complaint Patient presents with ??? Squamous Cell Carcinoma The patient is seen at the request of Dr Fuentes., who instructed the patient to be seen for evaluation of above. SKIN HX: SCC removed 01/2016 left side of neck at [facility] Transplant History (Kidney) in 2002. HPI Adama Ram is a 55 y.o. year old male, new to me but established dermatology. Last seen in 2012.Here today for skin check. Notes that the squamous cell carcinoma wound on the left neck is healingwell, as is the graft donor site on the left thigh. He also notes 2 sore areas on the back that he has been using topicals on that aren't helping. MEDS: Current Outpatient Prescriptions Medication Sig Dispense Refill ??? mycophenolate (CELLCEPT) 250 mg Capsule Take 3 capsules by mouth 2 times daily. Kidney Transplant Z94.0. Transplant Date; 11-26-02 180 capsule 11 ??? PROGRAF 1 mg Capsule Take 1 capsule by mouth 2 times daily. Kidney replaced by transplant 11/26/2002. Z94.0 60 capsule 6 ??? levETIRAcetam (KEPPRA) 500 mg Tablet take 1 tablet by mouth every morning and 2 tablets by mouth every evening 90 tablet 5 ??? calciTRIol (ROCALTROL) 0.5 mcg Capsule Take 1 capsule by mouth daily. 30 capsule 11 ??? acetaminophen (TYLENOL) 500 mg Tablet Take 2 tablets by mouth every 8 hours. 30 tablet 1 ??? DILTiazem (DILTIAZEM CD) 120 mg Capsule, Sust. Release 24 hr take 1 capsule by mouth once daily90 capsule 3 ??? allopurinol (ZYLOPRIM) 100 mg Tablet TAKE ONE AND A HALF TABLETS BY MOUTH ONCE DAILY 45 tablet 5 ??? losartan (COZAAR) 25 mg Tablet take [...] current facility-administered medications for this visit. ADR: Benazepril hcl; Codeine; Hydrochlorothiazide; and Pollen extracts ROS General: feeling well Skin: denies other skin complaints MEDICAL HISTORY: Patient Active Problem List Diagnosis Code ??? 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 A total body skin exam except for the genitalia was performed. This includes examination of the skin of the face, ears, neck, chest, axillae, left and right upper and lower extremities, hands, feet, abdomen, back, and buttocks. The genitalia, perineum, and perianal areas were not examined. Significant skin findings: A. Right interscapular 1.6 x1.5 cm eroded hyperkeratotic nodule B.Right lower back eroded pink plaque 2 x 1.2 cm Images Photo(s) taken by Erika Rivera LPN. with patient's verbal permission for use for clinical and education purposes. ASSESSMENT/PLAN: A. Likely squamous cell carcinoma B. Likely squamous cell carcinoma- -Schedule for excision of both of these next week. Follow up: 6 months Discussed increased risk of skin cancer with history of transplant and history of SCC Wear sunscreen and hat when outside Use plain Vaseline on skin- graft donor site; stop antibiotic ointment Continue to use compression stockings Return every six months for follow up I am documenting this encounter acting as the scribe for and in the presence of Dr. Sage: Erika Rivera LPN I performed the above scribed service and agree with the accuracy of the documentation in this encounter. Alexander Sage MD Dermatopathologist of Dermatology, Department of Surgery [facility] cc: CARROLL FUENTES DO documented in this encounter Plan of Treatment Not on file documented as of this encounter Visit Diagnoses Diagnosis History of SCC (squamous cell carcinoma) of skin Personal history of other malignant neoplasm of skin Neoplasm of skin Neoplasm of unspecified nature of bone, soft tissue, and skin Renal transplant recipient documented in this encounter Care Teams Pizza Delivery Driver Relationship Specialty Start Date End Date Carroll Fuentes DO [address] [place] [address] PCP - General 09/23/11 10/20/22 documented as of this encounter
--- OUTSIDE RECORDS SUMMARY | 2024-04-22 11:12 | XMS_ITS | Encounter Summary ---
Author Organization [facility] Address [facility] [place] [address] Care Team Providers Care Hydrate Thickener Operator Name Role Phone AlfredoCarroll allison Primary Care Provider Encounter Details Date Type Department Care Team (Late st Contact Info) Description 01/28/2016 [place] [phone] Cally Dillon LPN Social History Tobacco Use Types Packs/Day Years [...] encounter Miscellaneous Notes * Telephone Encounter - Cally Dillon LPN - 01/28/2016 9:23 AM EDT Recieved phone call from patient he is scheduled for surgery for excision of BCC of the skin of hischeek and neck region with Dr. Thomas on 02/04. Patient is on Warfarin therapy and has in the pat been bridged with Lovenox for surgery. He has his injections at [facility]. He called today to inquire abot the need to bridge for this surgery. Patient can be reached at [phone]. Message will be sent to Dr. Moreno and Felipa Anna RN for follow up. documented in this encounter Plan of Treatment Not on file documented as of this encounter Visit Diagnoses Not on filedocumented in this encounter Care Teams Hydrate Thickener Operator Relationship Specialty Start Date End Date Carroll Fuentes DO [address] [place] [address] [address] [place] [address] PCP - General 09/23/11 10/20/22 documented as of this encounter
--- OUTSIDE RECORDS SUMMARY | 2024-04-22 11:12 | XMS_ITS | Encounter Summary ---
[place] [address] Care Team Providers Care Perfect Bind Machine Operator Name Role Phone AlfredoCarroll allison Primary Care Provider [phone] Reason for Visit * Reason Onset Date Comments Medication Refill 03/24/2016 Encounter Details Date Type Department Care Team (Late st Contact Info) Description 03/24/2016 Refill [place] [id number] Crystal Brown CMA S/P kidney transplant Social [...] Telephone Encounter - Crystal Brown CMA - 03/24/2016 2:50 PM EDT Confirmed pharmacy with patient. April daniels in [place], [place] documented in this encounter Plan of Treatment Not on file documented as of this encounter Visit Diagnoses Diagnosis S/P kidney transplant Kidney replaced by transplant documented in this encounter Care Teams Perfect Bind Machine Operator Relationship Specialty Start Date End Date Carroll Fuentes DO [address] [place], [place] [address]Y [facility] [place] [address] PCP - General 09/23/11 10/20/22 documented as of this encounter
--- OUTSIDE RECORDS SUMMARY | 2024-04-22 11:12 | XMS_ITS | Encounter Summary ---
Author Organization Formerly [facility], [facility] Address [facility] [place] [address] Care Team Providers Care Inspector Grain Mill Products Name Role Phone Carroll Fuentes DO Primary Care Provider Reason for Visit * Reason Onset Date Comments Medication Refill 02/12/2016 Encounter Details Date Type Department Care Team (Late st Contact Info) Description 02/12/2016 [place] [address] Alfonzo Miles MD [facility] [place] [address] Social History Tobacco Use Types Packs/Day Years [...] filedocumented in this encounter Care Teams Inspector Grain [employer] Products Relationship Specialty Start Date End Date Carroll Fuentes DO [address] [place] [address] PCP - General 09/23/11 10/20/22 documented as of this encounter
--- OUTSIDE RECORDS SUMMARY | 2024-04-22 11:12 | XMS_ITS | Encounter Summary ---
Author Organization [facility] Address [facility] Laura [facility] [place] [address] Care Team Providers Care Group Managing Director Name Role Phone Carroll Fuentes DO Primary Care Provider [phone] Reason for Visit * Reason Onset Date Comments Medication Refill 02/12/2016 Encounter Details Date Type Department Care Team (Late st Contact Info) Description 02/12/2016 [place] [address] Alfonzo Miles MD [facility] [place] [address] Social History Tobacco Use Types Packs/Day Years [...] Telephone Encounter - Mirian Acosta CMA - 02/12/2016 3:24 PM EDT Refill request prepped and sent to Dr. Miles for review and signature. * Telephone Encounter - Crystal Souza - 02/12/2016 3:07 PM EDT Name of Med: levETIRAcetam (KEPPRA) Strength of Pills:500 mg Tablet Dosing Directions: 1 tablet by mouth every morning and 2 tablets by mouth every evening 30 or 90 Day: 30 Pharmacy: [facility] Last Appointment: 11/21/15 Next Appointment: 1 yr reminder for November 2016 Is Patient out of Medication?: almost documented in this encounter Plan of Treatment Not on file documented as of this encounter Visit Diagnoses Not on filedocumented in this encounter Care Teams Group Managing Director Relationship Specialty Start Date End Date Carroll Fuentes DO [address] [place] [address] PCP - General 09/23/11 10/20/22 documented as of this encounter
--- OUTSIDE RECORDS SUMMARY | 2024-04-22 11:12 | XMS_ITS | Encounter Summary ---
Author Organization [facility] Address [facility] [place] [address] Care Team Providers Care Clearing Tub Worker Name Role Phone Carroll Fuentes DO Primary Care Provider [phone] Reason for Visit * Reason Onset Date Comments Medication Refill 02/13/2016 Encounter Details Date Type Department Care Team (Late st Contact Info) Description 02/13/2016 [place] [address] Alfonzo Miles MD [facility] [place] [address] Social History Tobacco Use Types Packs/Day Years [...] on filedocumented in this encounter Care Teams Clearing Tub Worker Relationship Specialty Start Date End Date Carroll Fuentes DO [address] [place] [address] PCP - General 09/23/11 10/20/22 documented as of this encounter
--- OUTSIDE RECORDS SUMMARY | 2024-04-22 11:12 | XMS_ITS | Encounter Summary ---
Author Organization [facility] Address [facility] [place] [address] Care Team Providers Care Economics Instructor Name Role Phone AlfredoCarroll allison Primary Care Provider Reason for Visit * Auth/Cert Specialty Diagnoses / Procedures Referred By Shashi ko Referred To Contact Diagnoses open defect cheek Procedures PRO ADJ TISS XFER HEAD, FAC, HAND 10.1-30 ADJ.TISSUE TRANSFER, REARRANGEMENT, 10.1 TO 30 SQ.CM, CHEEK Referral ID Status Reason Start Date Expiration Date Visits Re quested Visits Authorized [id number] 1 1 Encounter Details Date Type Department Care Team (Late st Contact Info) Description 02/20/2016 11:30 AM EDT - 02/20/2016 1:58 PM EDT [place] [phone] Miguel Angel Barajas MD [facility] [place] [address] DEBRIDEMENT SKIN AND SUBCU, HEAD/NECK (WRVU 1.01) Social History Tobacco Use Types Packs/Day Years [...] Sign Reading Time Taken Comments Blood Pressure 126/82 02/20/2016 1:58 PM EDT Pulse 50 02/20/2016 1:58 PM EDT Temperature 36 ??C (96.8 ??F) 02/20/2016 1:58 PM EDT Respiratory Rate 16 02/20/2016 1:58 PM EDT Oxygen Saturation 99% 02/20/2016 1:58 PM EDT Inhaled Oxygen Concentration - - Weight 73.9 kg (163 lb) 02/20/2016 10:41 AM EDT Height 177.8 cm (5' 10) 02/20/2016 10:41 AM EDT Body Mass Index 23.39 02/20/2016 10:41 AM EDT documented in this encounter Discharge Instructions * Discharge Instructions* Bhavesh White RN - 02/20/2016 2:38 PM EDT POST ANESTHESIA INSTRUCTIONS Go home, rest, use caution on stairs. Change positions slowly. Do not smoke if you are alone. Diet light to regular as tolerated today. If nausea occurs start with clear liquids and progress slowly. No driving, operating machinery, alcoholic beverages and no important decisions for 24 hours. Monitor IV site for signs and symptoms of infection: increasing redness, swelling, foul drainage, if occurs contact M.D. Patients who have had endotrachial tubes (this tube, used by anesthesia department, is passed down your throat after you are asleep, to ensure safe air passage during your operation). A sore throat is normal due to the tube. Cold liquids or soothing lozenges will help ease the discomfort. The generalized muscle aches are due to the medication given to you just before the tube is inserted. As the medication wears off, you may develop muscle soreness, which usually goes away in 12-24 hours. * Patient Instructions* Paxton Cheng MD - 02/20/2016 1:46 PM EDT Instructions Given to Patient at Discharge: Pain medication: or pain, use acetaminophen. Wound Care: The yellow bolster dressing will stay in place until your scheduled follow up appointment. The pink dressing on your thigh will come off eventually on its own and does not need to be replaced. You may shower but please keep the dressing on your face covered. Diet: Follow this diet until your follow up appointment: regular Contact: -You can reach the ENT clinic at [phone] for appointment questions. -The ENT triage nurse is available at [phone] -For urgent issues during evenings and weekends the ENT resident representative personal service can be reached through [facility] rope coiling machine operator at [phone] documented in this encounter Medications at Time [...] a day 180 tablet 3 12/06/2015 03/09/2017 PROGRAF 1 mg Capsule Take 1 capsule [...] 12/03/2010 10/20/2017 documented as of this encounter H&P Notes * Paxton Cheng MD - 02/20/2016 11:00 AM EDT 24-Hour Pre-Operative H&P Update Patient Name: Adama Ram Patient Age: 55 y.o. Birthdate: 1960 Admit date: 02/20/2016 Attending Physician: Miguel Angel Barajas MD Patient seen and examined in the Pre-Operative Area today. I have reviewed, and agree with, the clinical history, physical examination findings, impression, and plan, as detailed in the original H&P Note. Mr. 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 Final margins of the removed cheek specimen as well as lymph nodes were negative for malignancy. He presents to the OR today for tissue defect closure. No new clinically-significant changes to the patient's health. Patient is ready to proceed with theplanned surgical procedure. documented in this encounter Miscellaneous Notes * Op Note - Paxton Cheng MD - 02/20/2016 1:48 PM EDT [facility] Operative Note Patient Name: Adama Ram : [id number] MR#: [id number] Case Date: 02/20/2016 Surgeon: Surgeon(s) and Role: * Miguel Angel Barajas MD - Primary * Paxton Cheng MD - Resident-Gluing Machine Feeder Preoperative diagnosis: open defect cheek Postoperative diagnosis: open defect cheek Procedure(s): DEBRIDEMENT SKIN AND SUBCU, HEAD/NECK SPLIT THICKNESS SKIN SPLIT GRAFT,100SQ CM OR LESS, NECK Findings: SCC resection with granulating well. Granulation tissue was removed to bleeding tissue and the defect covered with a STSG. Anesthesia: General Estimated Blood Loss: * No values recorded between 02/20/2016 12:28 PM and 02/20/2016 1:43 PM * Specimens removed during surgery: none Drains: none Surgical Closure: Primary Closure - closure of [...] details pertinent to this patient.) HPI/Surgical Indications: Mr. Ram presents to the OR today for a split thickness skin graft for reconstruction of a tissue defect s/p SCC resection of the left cheek. Procedure Description: The patient was taken to the operating room, placed in the supine position, and general endotracheal anesthesia was achieved without complication. The patient was prepped and draped in the usual sterile fashion and a timeout was performed. The left cheek excision site demonstrated a covering a granulation tissue which was removed with a curetteuntil bleeding tissue was encountered for the entire surface area of the wound. Next skin edges were undermined approximately 2 cm around the lesion in order to increase skin mobility. A STSG was obtained from the left thigh using a dermotome set at 16 thousandths, the a telfa soaked in epinephrinewas placed on the donor site for hemostasis. The skin graft was applied to the wound bed of the left cheek and sewn in using a 4-0 chromic suture. Small dave berry were made in the graft to allow for drainage of blood. A xeroform bolster dressing was applied and sewn down with 3-0 silk sutures. Analyven dressing was applied to the left thigh. The patient was then returned to anesthesia, allowed to awaken, and taken out of the operating roomin good condition. The patient tolerated the procedure well without complication. Infection Bundle used? no Associated attestation - Miguel Angel Barajas MD - 02/20/2016 2:20 PM EDT Attestation: Case Date: 02/20/2016 I was present and I participated during the entire procedure (does not need to include opening and closing). MIGUEL ANGEL BARAJAS MD 02/20/2016 documented in this encounter Plan of Treatment Not on file documented as of this encounter Procedures Procedure Name Priority Date/Time Associated Diagnosis Comments ORDS - PROVIDER CARE SCAN 02/24/2016 12:00 AM EDT DEBRIDEMENT SKIN AND SUBCU, HEAD/NECK Routine 02/20/2016 1:09 PM EDT Skin cancer Surgical defect of skin SPLIT THICKNESS SKIN SPLIT GRAFT,100SQ CM OR LESS, NECK Routine 02/20/2016 12:38 PM EDT Skin cancer Surgical defect of skin SPLIT THICKNESS SKIN SPLIT GRAFT,100SQ CM OR LESS, NECK (WRVU 10.15) Yes 02/20/2016 11:44 AM EDT Skin cancer Surgical defect of skin DEBRIDEMENT SKIN AND SUBCU, HEAD/NECK (WRVU 1.01) Yes 02/20/2016 11:44 AM EDT Skin cancer Surgical defect of skin PROTHROMBIN TIME STAT 02/20/2016 10:2 2 AM EDT Anticoagulated on Coumadin POTASSIUM STAT 02/20/2016 10:22 AM EDT End stage renal disease documented in this encounter Results * SCAN DOC: ORDS - PROVIDER CARE (02/24/2016 12:00 AM EDT) Scanning Provider MEDIA MGR SCAN EXT O RDR/RSLT * (ABNORMAL) Prothrombin Time (02/20/2016 10:22 AM EDT) Prothrombin Time 16.4(H) 12.0 - 15.0 sec [facility] Comment: An INR [...] depending on clinical circumstances. International Normalization Ratio 1.3(H) 0.9 - 1.1 [facility] Blood specimen (specimen) 02/20/2016 10:22 AM EDT 02/20/2016 10:37 AM EDT Narrative Resulting Agency Comment Spec In Lab Miguel Angel Barajas MD HEMATOLOGY ORDERAB LES Performing Organization Address [facility] Co de Phone Number [facility] [place] [address] * (ABNORMAL) Potassium (02/20/2016 10:22 AM EDT) Potassium 5.4(H) 3.5 - 5.0 mmol/L [facility] Comment: Please note: ??Patients with WBC >100,000 may have falsely elevated Potassium levels. ??For accurate Potassium quantification in these patients send serum separator tube (gold top) for subsequent determinations. ??Contact the Clinical Chemistry Laboratory if there are any questions. Blood specimen (specimen) 02/20/2016 10:22 AM EDT 02/20/2016 10:37 AM EDT Narrative Resulting Agency Comment Spec In Lab Miguel Angel Barajas MD CHEMISTRY ORDERABL ES Performing Organization Address [facility] Co de Phone Number [facility] [place] [address] documented in this encounter Visit Diagnoses Diagnosis End stage renal disease Anticoagulated on Coumadin Encounter for therapeutic drug monitoring Skin cancer Unspecified malignant neoplasm of skin, site unspecified Surgical defect of skin Disruption of external operation (surgical) wound Skin cancer Unspecified malignant neoplasm of skin, site unspecified Surgical defect of skin Disruption of external operation (surgical) wound documented in this encounter Administered Medications Inactive Administered Medications - up to 3 most recent administrations Medication Order MAR Action Action Date Dose Rate Site acetaminophen (TYLENOL) tablet 1,000 mg 1,000 mg, Oral, ONCE, 1 dose, On Mariza 02/20/16 at 1115, Maximum dose of acetaminophen is 4000 mg from all sources in 24 hours., Day of Surgery (Day of Procedure), Routine Given 02/20/2016 11:18 AM EDT 1,000 mg acetaminophen (TYLENOL) tablet 650 mg 650 mg, Oral, EVERY 4 HOURS PRN, Starting on Mariza 02/20/16 at 1346, Until Mariza 02/20/16 at 1858, Pain, Maximum dose of acetaminophen is 4000 mg from all sources in 24 hours., Routine Given 02/20/2016 2:35 PM EDT 650 mg ceFAZolin (ANCEF) 1g in dextrose 5% 50mL 1,000 mg (1 g), Intravenous, EVERY 8 HOURS, First dose on Mariza 02/20/16 at 1130, Until Discontinued, Administer over 30 Minutes, Indication for (Active or Suspected): Prophylaxis Given 02/20/2016 12:03 PM EDT 1 g EPINEPHrine (PF) injection Soln ONCE PRN, Starting on Mariza 02/20/16 at 1300, Until Mariza 02/20/16 at 1858, Intra-Operative (Intra-Procedure), Routine Given 02/20/2016 1:00 PM EDT 30 mg 19- Surgical Site lactated ringers infusion 1,000 mL 1,000 mL, at 100 mL/hr, Intravenous, CONTINUOUS, Starting on Mariza 02/20/16 at 1115, Until Mariza 02/20/16 at 1858, Day of Surgery (Day of Procedure) New Bag 02/20/2016 11:41 AM EDT lactated ringers infusion 1,000 mL 1,000 mL, at 100 mL/hr, Intravenous, CONTINUOUS, Starting on Mariza 02/20/16 at 1115, Until Mariza 02/20/16 at 1858, Day of Surgery (Day of Procedure) New Bag 02/20/2016 11:21 AM EDT 1,000 mLs 100 mL/hr lidocaine (XYLOCAINE) 10 mg/mL (1 %) injection 3 mg 3 mg (0.3 mL), Subcutaneous, ONCE PRN, 1 dose, Starting on Mariza 02/20/16 at 1050, Until Mariza 02/20/16 at 1858, for discomfort with PIV insertion, Day of Surgery (Day of Procedure), Routine lidocaine (XYLOCAINE) 10 mg/mL (1 %) injection 3 mg 3 mg (0.3 mL), Subcutaneous, ONCE PRN, 1 dose, Starting on Mariza 8 at 1050, Until Mariza 02/20/16 at 1110, for discomfort with PIV insertion, Day of Surgery (Day of Procedure), Routine Given 02/20/2016 11:10 AM EDT 3 mg sodium chloride 0.9 % flush 5-20 mL 5-20 mL, Intravenous, EVERY 1 MIN PRN, Starting on Mariza 02/20/16 at 1050, Until Mariza 02/20/16 at 1858, flush, Flush pertains to all indwelling lines. Flush per protocol found in the job aid using the link provided on this medication record., Day of Surgery (Day of Procedure), Routine sodium chloride 0.9 % flush 5-20 mL 5-20 mL, Intravenous, EVERY 1 MIN PRN, Starting on Mariza 02/20/16 at 1050, Until Mariza 02/20/16 at 1858, flush, Flush pertains to all indwelling lines. Flush per protocol found in the job aid using the link provided on this medication record., Day of Surgery (Day of Procedure), Routine documented in this encounter Active and Recently Administered Medications Times are shown in EDT. Scheduled Medication Order 02/18/2016 02/19/2016 02/20/2016 acetaminophen (TYLENOL) tablet 1,000 mg (COMPLETED) 1,000 mg, Oral, ONCE, 1 dose, On Mariza 02/20/16 at 1115, Maximum dose of acetaminophen is 4000 mg from all sources in 24 hours., Day of Surgery (Day of Procedure), Routine 1118 (Given - Provid er: Nohemi Farnsworth RN) ceFAZolin (ANCEF) 1g in dextrose 5% 50mL 1,000 mg (1 g), Intravenous, EVERY 8 HOURS, First dose on Mariza 02/20/16 at 1130, Until Discontinued, Administer over 30 Minutes, Indication for (Active or Suspected): Prophylaxis 1130 (Due)1203 (Give n - Provider: Ramone Sherwood MD) Continuous Medication Order 02/18/2016 02/19/2016 02/20/2016 lactated ringers infusion 1,000 mL 1,000 mL, at 100 mL/hr, Intravenous, CONTINUOUS, Starting on Mariza 02/20/16 at 1115, Until Mariza 02/20/16 at 1858, Day of Surgery (Day of Procedure) 1141 (New Bag - Prov ider: Ramone Sherwood MD) lactated ringers infusion 1,000 mL 1,000 mL, at 100 mL/hr, Intravenous, CONTINUOUS, Starting on Mariza 02/20/16 at 1115, Until Mariza 02/20/16 at 1858, Day of Surgery (Day of Procedure) 1121 (New Bag - Prov ider: Nohemi Farnsworth RN) PRN Medication Order 02/18/2016 02/19/2016 02/20/2016 acetaminophen (TYLENOL) tablet 650 mg 650 mg, Oral, EVERY 4 HOURS PRN, Starting on Mariza 02/20/16 at 1346, Until Mariza 02/20/16 at 1858, Pain, Maximum dose of acetaminophen is 4000 mg from all sources in 24 hours., Routine 1435 (Given - Provid er: Bhavesh White RN) EPINEPHrine (PF) injection Soln (CANCELED) ONCE PRN, Starting on Mariza 02/20/16 at 1300, Until Mariza 02/20/16 at 1858, Intra-Operative (Intra-Procedure), Routine 1300 (Given - Provid er: Miguel Angel Barajas MD) lidocaine (XYLOCAINE) 10 mg/mL (1 %) injection 3 mg 3 mg (0.3 mL), Subcutaneous, ONCE PRN, 1 dose, Starting on Mariza 02/20/16 at 1050, Until Mariza 02/20/16 at 1858, for discomfort with PIV insertion, Day of Surgery (Day of Procedure), Routine lidocaine (XYLOCAINE) 10 mg/mL (1 %) injection 3 mg (COMPLETED) 3 mg (0.3 mL), Subcutaneous, ONCE PRN, 1 dose, Starting on Mariza 02/20/16 at 1050, Until Mariza 02/20/16 at 1110, for discomfort with PIV insertion, Day of Surgery (Day of Procedure), Routine 1110 (Given - Provid er: Nohemi Farnsworth RN) sodium chloride 0.9 % flush 5-20 mL 5-20 mL, Intravenous, EVERY 1 MIN PRN, Starting on Mariza 02/20/16 at 1050, Until Mariza 02/20/16 at 1858, flush, Flush pertains to all indwelling lines. Flush per protocol found in the job aid using the link provided on this medication record., Day of Surgery (Day of Procedure), Routine sodium chloride 0.9 % flush 5-20 mL 5-20 mL, Intravenous, EVERY 1 MIN PRN, Starting on Mariza 02/20/16 at 1050, Until Mariza 02/20/16 at 1858, flush, Flush pertains to all indwelling lines. Flush per protocol found in the job aid using the link provided on this medication record., Day of Surgery (Day of Procedure), Routine documented in this encounter Care Teams Economics Instructor Relationship Specialty Start Date End Date Carroll Fuentes DO [address] [place] [address] PCP - General 09/23/11 10/20/22 documented as of this encounter
--- OUTSIDE RECORDS SUMMARY | 2024-04-22 11:12 | XMS_ITS | Encounter Summary ---
[place] [address] Care Team Providers Care Nurse Specialist Name Role Phone AlfredoCarroll allison Primary Care Provider [phone] Reason for Visit * Reason Onset Date Comments Medication Refill 02/13/2016 Encounter Details Date Type Department Care Team (Late st Contact Info) Description 02/13/2016 [place] [id number] Mirian Acosta CMA Medication Refill Social History [...] Telephone Encounter - Mirian Acosta CMA - 02/13/2016 12:59 PM EDT New RX for Keppra 500 MG tablet faxed to requested pharmacy, [facility] [place], [place] [address] [facility]. documented in this encounter Plan of Treatment Not on file documented as of this encounter Visit Diagnoses Not on filedocumented in this encounter Care Teams Nurse Specialist Relationship Specialty Start Date End Date Carroll Fuentes DO [address] [facility] [place] [address] PCP - General 09/23/11 10/20/22 documented as of this encounter
--- OUTSIDE RECORDS SUMMARY | 2024-04-22 11:12 | XMS_ITS | Encounter Summary ---
Author Organization [facility] [place] [address] Care Team Providers Care Automotive Finance Manager Name Role Phone AlfredoCarroll geiger Primary Care Provider Encounter Details Date Type Department Care Team (Late st Contact Info) Description 05/19/2016 Telephone [place] [address] Nilda Maravilla, RN Social History Tobacco Use [...] encounter Miscellaneous Notes * Telephone Encounter - Nilda Varma, RN - 05/19/2016 11:21 AM EST Called and spoke with Adama, he wanted verification that he was to hold AM prograf before lab draw. Validated holding AM meds, encouraged him to bring meds to take after lab draw. Patient reports understanding. documented in this encounter Plan of Treatment Not on file documented as of this encounter Visit Diagnoses Not on filedocumented in this encounter Care Teams Automotive Finance Manager Relationship Specialty Start Date End Date Carroll Fuentes DO [address] [facility] [place] [address] PCP - General 09/23/11 10/20/22 documented as of this encounter
--- OUTSIDE RECORDS SUMMARY | 2024-04-22 11:12 | XMS_ITS | Encounter Summary ---
Author Organization [facility] Address [facility] [place] [address] Care Team Providers Care Data Control Assistant Name Role Phone Alfredo, Carroll MIX Primary Care Provider [phone] Reason for Visit * Reason Onset Date Comments Pre Procedure Call 04/29/2016 Encounter Details Date Type Department Care Team (Late st Contact Info) Description 04/29/2016 Telephone Dermatology at [facility] [address] [place] [address] Lalitha Shannon LPN Pre Procedure [...] Telephone Encounter - Lalitha Shannon LPN - 04/29/2016 3:47 PM EDT Pre-Op excision phone call Date of Call: 04/29/16 Surgical procedure to be done: excision squamous cell carcinoma right interscapular and right lowerback on 05/04/16 with Alexander Sage MD Spoke with Adama Ram by phone to review the following. Review of allergies and medications: instructed to take all medications prior to procedure Does take any blood thinners. Warfarin 5 mg/7.5 mg daily Does not have any allergies to Lidocaine or epinephrine. Does take antibiotics before dental procedures. Amoxicillin 750 mg Does not have any cardiac issues, murmurs or valve replacements. Does not have a pacemaker or defibrillator. Has not had a total joint replacement with in the past 2 years. Recommend that he be accompanied by someone who can drive him home if needed. Discussed length of procedure and time variables. Post operative instructions reviewed including physical limitations after procedure. Phone number given should any questions or concerns arise before or after the procedure. Adama states that he understands all of the above. Lalitha Shannon LPN documented in this encounter Plan of Treatment Not on file documented as of this encounter Visit Diagnoses Not on filedocumented in this encounter Care Teams Data Control Assistant Relationship Specialty Start Date End Date Carroll Fuentes DO [address] [facility] [address] [place] [address] PCP - General 09/23/11 10/20/22 documented as of this encounter
--- OUTSIDE RECORDS SUMMARY | 2024-04-22 11:12 | XMS_ITS | Encounter Summary ---
Author Organization [facility] Address [facility] [place] [address] Care Team Providers Care Consumer Analyst Name Role Phone Carroll Fuentes DO Primary Care Provider [phone] Reason for Visit * Reason Comments Procedure Squamous Cell Carcinoma Encounter Details Date Type Department Care Team (Latest Contact Info) Description 05/04/2016 1:00 PM EDT Procedure visit Dermatology at [facility] [address] [place] [address] Alexander Sage MD [facility] [address] [place] [address] Squamous cell carcinoma of back (Primary Dx) Social History Tobacco Use Types Packs/Day Years [...] Sign Reading Time Taken Comments Blood Pressure 135/99 05/04/2016 12:46 PM EDT Pulse 44 05/04/2016 12:46 PM EDT Temperature - - Respiratory Rate - - Oxygen Saturation - - Inhaled Oxygen Concentration - - Weight - - Height - - Body Mass Index - - documented in this encounter Patient Instructions * Patient Instructions* Lalitha Shannon LPN - 05/04/2016 1:00 PM EDT Section of Dermatology POST OPERATIVE INSTRUCTIONS Wash your hand before changing the dressing. The dressing on the site should remain in place and dry until Wednesday The dressing should then be removed gently After removing the dressing, daily wound care should be performed as follows: Clean the wound with warm water and pat dry Apply either Vaseline or Aquaphor Ointment Cover the wound with a new dressing such as Telfa and Tape, or a Band-Aid Do not use peroxide or Antibiotic cream or ointment on the wound For discomfort, you may take Tylenol or other non-aspirin pain medication. If bleeding should occur, pressure should be applied constantly for 15 minutes on the dressing withthe help of a towel, wash cloth, or piece of gauze. The sutures should be removed in 10 - 12 days. It is important that you avoid strenuous and/or vigorous activities, heavy lifting (More than 5-10 lbs), and bending for a period of 2 weeks If you have questions, please contact the office of Alexander Sage MD during the day at [phone] Nurse: Lalitha [phone] After 5 PM and on weekends, please call the hospital number , and ask for the Post Hole Digging Machine Operator peritoneal dialysis registered nurse. documented in this encounter Progress Notes * Alexander Sage MD - 05/04/2016 1:00 PM EDT Procedure note: Attending: Alexander Sgae MD Licensed Customs Broker: Lalitha Shannon LPN Referring MD: Carroll Fuentes MD ? ? Y/N? Are you taking any blood thinners?? ? Y, warfarin 5/7.5 mg daily Pacemaker or defibrillator?? ? N Heart valves? ? N Joints? N Antibiotics prior to procedures?? ? N If yes: Time taken?? ? Allergy to local anesthetics? ? N ? Allergy to latex?? ? N ? Vitals: 05/04/16 1246 BP: (!) 135/99 Pulse: (!) 44 I explained the diagnosis to the patient and recommend an excision of the lesion for diagnosis and/or treatment. I explained all treatment options and risks of the procedure to the patient and obtained written consent. Potential complications include, but not limited to: scar, bleeding, infection, incomplete removal, nerve damage, and dehiscence. ? The patient was brought into room. A time out was performed. The patient was prepared and draped sterilely in the usual manner and anesthesia was administered by local infiltration. A fusiform shape was drawn around the lesion, and the margins were incised to the level of the subcutaneous fat with a number 10 blade. The tissue was removed with sharp and blunt dissection. The lateral margins of the resulting defect were undermined with sharp and blunt dissection and hemostasis was achieved with electrocautery. The deeper layers of the defect including subcutaneous fat were approximated to reduce tension on the suture line Layered wound closure was performed. The wound was cleaned, dried off,vaseline was applied and the wound covered with a pressure dressing. The patient was given detailedverbal and written instructions on post-operative care. ? In the event of a suspected infection (e.g. pus formation, fever, redness), the patient knows to call the clinic or the on-call staff rn over the weekend. ??? Name of Procedure? ? Excision with intermediate layered closure Location? ?? A: right interscapular Diagnosis? ?? SCC Size (maximal) (cm)? ?? 1.6 x 1.5 cm Margins (cm)? 0.5 cm ? Size + Margins (cm)? ? 2.6 cm ? 1% lidocaine with epinephrine? 7 cc? Suture (adipose/dermis)? 4-0 PDS Suture (epidermis)? 5-0 Prolene? Final wound length? 6.5 cm? Suture removal? 10- 12 days? will have done by PCP Name of Procedure? ? Excision with intermediate layered closure Location? ?? B: right lower back Diagnosis? ?? SCC Size (maximal) (cm)? ?? 2.0 x 1.2 cm Margins (cm)? 0.5 cm ? Size + Margins (cm)? ? 3.0 cm ? 1% lidocaine with epinephrine? 8 cc? Suture (adipose/dermis)? 4-0 PDS Suture (epidermis)? 5-0 Prolene? Final wound length? 7.0 cm? Suture removal? 10 - 12 days? , will have done by PCP Best way to reach you with results: phone call Alexander Sage MD 05/04/16 4:34 PM documented in this encounter Plan of Treatment Not on file documented as of this encounter Procedures Procedure Name Priority Date/Time Associated Diagnosis Comments SPECIMEN TO PATHOLOGY (NON-OR) Routine 05/04/2016 2:34 PM EDT Squamous cell carcinoma of back SURGICAL PATHOLOGY REPORT Routine 05/04/2016 2:34 PM EDT documented in this encounter Results * Surgical Pathology Report (05/04/2016 2:34 PM EDT) Final Diagnosis [id number] ?Location: [facility] The signing pathologist has (i) examined the relevant preparation(s) for the specimen(s) and (ii) rendered or confirmed the diagnosis(es). . ?Surgical Pathology DIAGNOSIS A. Skin, right interscapular, excision: - BASAL CELL CARCINOMA, NODULAR TYPE WITH SQUAMOUS DIFFERENTIATION, MARGINS CLEAR (SEE DISCUSSION) B. Skin, right lower back, excision: - BASAL CELL CARCINOMA, NODULAR TYPE, MARGINS CLEAR Electronically signed by: ??Justin JONES, Walt Brumfield Verified: ??05/06/2016 ?Dermatopathologi st DISCUSSION A. The right interscapular tumor has predominant features of a nodular basal cell carcinoma. Squamous differentiation is present in a significant portion of the lesion, raising the possibility of a contiguous well to moderately differentiated squamous cell carcinoma. The lesion is excised. No perineural invasion is identified. CLINICAL INFORMATION Specimen Submitted: A - Skin, right interscapular, excision (1) B - Skin, right lower back, excision (1) Clinical History: A - 1.6 x 1.5 cm eroded hyperkeratotic nodule B - 2.0 x 1.2 cm eroded pink plaque Clinical Diagnosis: SCC SPECIMEN PROCESSING A - Labeled/Fixative: Right interscapular, formalin. Quantity/Size: Single, 5.2 x 2.1 x 0.6 cm. Tissue Description: Unoriented ellipse of smith-white skin with a central 1.4 x 1.4 cm bosselated smith-pink papule. Sections/Processin g : The specimen is inked and serially sectioned. The ends are submitted in (1); the remainder in (2-11). (T11) B - Labeled/Fixative: Right lower back, formalin. Quantity/Size: Single, 4.1 x 2.0 x 0.4 cm. Tissue Description: Unoriented ellipse of smith-pink skin with a central 1.6 x 1.0 cm crusted, pink-red lesion. Sections/Processin g : The specimen is inked and serially sectioned. The ends are submitted in (1); the remainder in (2-7). (T7) ??pps 05/06/2016 6:09 PM EDT [facility] SPECIMEN FROM SKIN / Unknown 05/04/2016 2:34 PM EDT 05/04/2016 2:34 PM EDT SPECIMEN FROM SKIN / Unknown 05/04/2016 2:34 PM EDT 05/04/2016 2:34 PM EDT Alexander Sage MD PATHOLOGY/CYTOLOGY O [facility] Performing Organization Address City/[facility]/ZIP Co de Phone Number [facility] [place] [address] * Specimen to Pathology (NON-OR) (05/04/2016 2:34 PM EDT) AP Specimen 05/04/2016 2:34 PM EDT 05/04/2016 3:36 PM EDT Narrative [facility] - 05/04/2016 3:36 PM EDT Specimen requisition ordered. ??Separate Pathology report to follow Resulting Agency Comment Spec In Lab Alexander Sage MD PATHOLOGY/CYTOLOGY O [facility] Performing Organization Address City/[facility]/[place] [address] documented in this encounter Visit Diagnoses Diagnosis Squamous cell carcinoma of back- Primary Squamous cell carcinoma of skin of trunk, except scrotum documented in this encounter Care Teams Consumer Analyst Relationship Specialty Start Date End Date Carroll Fuentes DO [address] [place] [address] PCP - General 09/23/11 10/20/22 documented as of this encounter
--- OUTSIDE RECORDS SUMMARY | 2024-04-22 11:12 | XMS_ITS | Encounter Summary ---
Author Organization [facility] Address [facility] [place] [address] Care Team Providers Care Paper Cone Machine Tender Name Role Phone AlfredoCarroll allison Primary Care Provider [phone] Reason for Visit * Auth/Cert Specialty Diagnoses / Procedures Referred By Shashi ko Referred To Contact Diagnoses open defect cheek Procedures PRO ADJ TISS XFER HEAD, FAC, HAND 10.1-30 ADJ.TISSUE TRANSFER, REARRANGEMENT, 10.1 TO 30 SQ.CM, CHEEK Referral ID Status Reason Start Date Expiration Date Visits Re quested Visits Authorized [id number] 1 1 Encounter Details Date Type Department Care Team (Late st Contact Info) Description 02/20/2016 11:41 AM EDT Anesthesia Event [place] [address] Cathy Smith MD [facility] [place] [address] Cally Olson, GUM MACHINE OPERATOR [address] [facility] [address]1 [place] [address] Anesthesia Record Procedure Summary Procedure Name Responsible Anesthesiologist Anesthesia Start Time Anesthesia Stop Time DEBRIDEMENT SKIN AND SUBCU, HEAD/NECK (WRVU 1.01) (Left: Neck) Cathy Smith MD 02/20/16 1141 02/20/16 1414 Events Date Time Event Comment 02/20/2016 1120 1141 Start 1144 AN Verify 1144 An Start Data 1156 An Induction 1200 An Intubation 1203 Anesthesia Ready 1222 Break/Relief In CATHY PURI MD 1229 Procedure Start 1250 Break/Relief Out 1351 Extubation/LMA Out 1353 an stop data 1414 Recovery or ICU Handoff Randa ent care was transferred to the destination unit staff after review of the patient's medical history, current anesthetic/surgical status and plan, according to the Provider Handoff Checklist. 1414 Stop Meds Name Total Midazolam 2 mg fentaNYL 50 mcg Propofol 250 mg Rocuronium 30 mg ePHEDrine 25 mg Ondansetron 4 mg Dexamethasone 8 mg Neostigmine 2 mg Glycopyrrolate 1 mg ceFAZolin (ANCEF) 1g in dextrose 5% 50mL 1 g lactated ringers infusion 1,000 mL 0 mL * Agents Name O2 Air [...] Servin RN 04/19/18926 by Karuna Nagel RN (RETIRED) Peripheral IV Line - Single Lumen 02/20/16; 1119; cephalic vein right (lateral side of arm); [id number] catheter system; 18 gauge, 1 in length; Angelina Richter MD; distraction, intradermal injection, tolerated well, appears comfortable; 1; other (see comments); 02/20/16; 1656 02/20/16 1119 by Nohemi Farnsworth RN 02/20/16 165 by Taiwo Swan RN ETT Mask Ventilation: Ea rocky (1); ETT Type: Cuffed, Oral; ETT Size: 7 mm; Mac Blade: 4; Notes: Asleep, Pre-O2, Cricoid Pressure, Stylette; Attempts: 1; Laryngoscopy Grade: 1; ETT Placement Verified By: Auscultation, Capnometry, Visual; Secured at Teeth: 22 cm; Inserted by: MD Kaela; Removal Date: 02/20/16; Removal Time: 1351 02/20/16 1200 by Jose Manuel Sherwood MD 02/20/16 1351 by Jose Manuel Sherwood MD documented in this encounter Social History [...] OR Notes * Anesthesia Postprocedure Evaluation - Jose Manuel Sherwood MD - 02/21/2016 9:31 AM EDT [facility] Department of Anesthesiology Post-procedure Note Patient: Adama Ram Procedure Summary Date Anesthesia Start Anesthesia Stop Room / Location 02/20/16 1141 1414 [facility] OR / [facility] MAIN OR Procedure Diagnosis Surgeon Responsible Provider DEBRIDEMENT SKIN AND SUBCU, HEAD/NECK (Left Neck); SPLIT THICKNESS SKIN SPLIT GRAFT,100SQ CM OR LESS, NECK (N/A Leg Upper) Skin cancer; Surgical defect of skin (open defect cheek) Miguel Angel Moreno MD Williams, Adrienne P, MD All Anesthesia Providers: Anesthesiologist: Cathy Smith MD Supervisor Veneer: Jose Manuel Sherwood MD Last (1hr) Vitals: BP Temp Pulse Resp SpO2 Patient Location: PACU/[facility] Level of Consciousness: Conscious but Sleepy Pain Management: Satisfactory Analgesia PONV: None Cardiovascular Status: At Baseline and Hemodynamically Stable Respiratory Status: At Baseline and Supplemental O2 (NC or FM) Postoperative Fluid Status: Intravascular EUvolemia Possible Anesthetic Complications: NONE apparent at time of evaluation Final Primary Anesthesia Type: General (The anesthetic type performed was the same as planned.) Comments: JOSE MANUEL SHERWOOD MD * Anesthesia Preprocedure Evaluation - Jose Manuel Sherwood MD - 02/19/2016 5:15 PM EDT Pre-Anesthesia Evaluation for: Adama Ram a 55 y.o. male. Procedure(s): ADJ.TISSUE TRANSFER, REARRANGEMENT, 10.1 TO 30 SQ.CM, CHEEK Patient Active Problem List Diagnosis ??? Squamous cell carcinoma of skin of [...] kidney transplant secondary to ESRD Past Medical History Diagnosis Date ??? BP (high blood pressure) ??? DVT (deep venous thrombosis) ??? Gout ??? Hypertension ??? Kidney problem ??? Pneumonia ??? TBI (traumatic brain injury) 1980 Past Surgical History Procedure Laterality Date ??? Created by interface Entered not Verified Procedure Date: 09/19/2010 ??? Kidney transplant KIDNEY TRANSPLANT / RECIPIENT/LT Procedure Date: 11/26/2002 ??? Us renal transplant biopsy 12/31/2010 ??? Pro repair intermediate s/a/t/e 2.6-7.5 cm 04/19/2012 REPAIR INTERMEDIATE WOUND, (NO HANDS OR FEET) 2.6 TO 7.5CM, UPPER EXTREMITY performed by SABRINA SANCHEZ at [facility] MAIN OR ? ? Pro exc skin malig >4cm trunk, arm, leg 04/19/2012 EXC MALIGNANT LESION, MICHAEL > 4.0CM, TRUNK performed by SABRINA SANCHEZ at [facility] MAIN OR ??? Pro vascular surgery procedure unlist Left 11/20/2015 LIGATION\REPAIR AV FISTULA performed by Camilo Ireland MD at [facility] MAIN OR ??? Pro vascular surgery procedure unlist Left 11/20/2015 EXCISION VEIN FROM HAND performed by Camilo Ireland MD at [facility] MAIN OR ??? Pro exc skin malig 3.1-4cm face, facial Left 02/05/2016 EXC MALIGNANT LESION, 3.1 TO 4.0CM, FACE performed by Miguel Angel Moreno MD at [facility] MAIN OR ??? Pro exc parotd, total, unilat rad neck Left 02/05/2016 @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, TOTAL, WITH UNILATERAL RADICAL NECK DISSECTION performed by Miguel Angel Moreno MD at [facility] MAIN OR Social History Substance Use Topics ??? Smoking [...] or weight on file to calculate BMI. Anesthesia Physical Exam Anesthesia Plan: ASA 2 general, with a(n) intravenous induction 55 M former smoker with PMH of ESRD s/p transplant on immunosuppressant therapy, HTN, previous DVT (on warfarin), TBI w/ seizure disorder (on keppra), prior tracheostomy, and a basal cell carcinoma of the skin of his cheek and neck region who presents for cheek reconstruction. Allergies: -- Benazepril Hcl -- Codeine - Patient does not know reaction -- Hydrochlorothiazide Medications: levETIRAcetam (KEPPRA) 500 mg qam, 1000mg qpm calciTRIol (ROCALTROL) 0.5 mcg qd mycophenolate (CELLCEPT) 750 mg tid DILTiazem (DILTIAZEM CD) 120 mg qd allopurinol (ZYLOPRIM) 150 mg qd losartan (COZAAR) 25 mg qd hydrALAZINE (APRESOLINE) 50 mg bid PROGRAF 1 mg bid warfarin (COUMADIN) 5 mg tablet levothyroxine (SYNTHROID) 88 mcg qd metoprolol tartrate (LOPRESSOR) 50 mg tid Prior anesthesia: Easy Masy, Grade 1 view w Mac 4. Last anesthetic: Bradycardia to 35 following FTL50 mcg. ??Unresponsive to glycopyrolate. ??Atropine 0.4 mg given w/o significant response. ??Additional 0.4 atropine with HR rising slowly into 50'2. ??Zoll pads placed A/P in case temporary pacing required-not utilized. Plan: GA c ETT, IV induction. Standard ASA monitors. Region - Other Informed Consent: PAT Staff [...] Given 02/20/2016 12:03 PM EDT 1 g dexamethasone (DECADRON) injection PRN, Starting on Mariza 02/20/16 at 1210, Until Mariza 02/20/16 at 1414, Anesthesia Intra-op, Routine Given 02/20/2016 12:10 PM EDT 8 mg ePHEDrine 5 mg/mL multi-dose injection PRN, Starting on Mariza 02/20/16 at 1210, Until Mariza 02/20/16 at 1414, Anesthesia Intra-op, Routine Given 02/20/2016 1:03 PM EDT 10 mg Given 02/20/2016 12:55 PM EDT 10 mg Given 02/20/2016 12:10 PM EDT 5 mg fentaNYL 50 mcg/mL multi-dose injection PRN, Starting on Mariza 02/20/16 at 1238, Until Mariza 02/20/16 at 1414, Pain, Anesthesia Intra-op, Routine Given 02/20/2016 12:44 PM EDT 25 mcg Given 02/20/2016 12:38 PM EDT 25 mcg glycopyrrolate (ROBINUL) multi-dose injection PRN, Starting on Mariza 02/20/16 at 1154, Until Mariza 02/20/16 at 1414, Anesthesia Intra-op, Routine Given 02/20/2016 1:36 PM EDT 0.4 mg Given 02/20/2016 11:54 AM EDT 0.6 mg lactated ringers infusion 1,000 mL 1,000 mL, at 100 mL/hr, Intravenous, CONTINUOUS, Starting on Mariza 02/20/16 at 1115, Until Mariza 02/20/16 at 1858, Day of Surgery (Day of Procedure) New Bag 02/20/2016 11:41 AM EDT midazolam (PF) (VERSED) 1 mg/mL multi-dose injection PRN, Starting on Mariza 02/20/16 at 1139, Until Mariza 02/20/16 at 1414, Sleep, Anesthesia Intra-op, Routine Given 02/20/2016 11:39 AM EDT 2 mg neostigmine (PROSTIGMINE) multi-dose injection PRN, Starting on Mariza 02/20/16 at 1336, Until Mariza 02/20/16 at 1414, Anesthesia Intra-op, Routine Given 02/20/2016 1:36 PM EDT 2 mg ondansetron (ZOFRAN) injection PRN, Starting on Mariza 02/20/16 at 1336, Until Mariza 02/20/16 at 1414, Nausea, Anesthesia Intra-op, Routine Given 02/20/2016 1:36 PM EDT 4 mg propofol (DIPRIVAN) 10 mg/mL bolus injection (Anesthesia) PRN, Starting on Mariza 02/20/16 at 1156, Until Mariza 02/20/16 at 1414, Anesthesia Intra-op Given 02/20/2016 11:56 AM EDT 250 mg rocuronium (ZEMURON) multi-dose injection PRN, Starting on Mariza 02/20/16 at 1156, Until Mariza 02/20/16 at 1414, Anesthesia Intra-op, Routine Given 02/20/2016 11:56 AM EDT 30 mg documented in this encounter Care Teams Paper Cone Machine Tender Relationship Specialty Start Date End Date Carroll Fuentes DO [address] [place] [address] PCP - General 09/23/11 10/20/22 documented as of this encounter
--- OUTSIDE RECORDS SUMMARY | 2024-04-22 11:12 | XMS_ITS | Encounter Summary ---
Author Organization [facility] Address [facility] [place] [address] Care Team Providers Care Plastic Press Molder Name Role Phone Carroll Fuentes DO Primary Care Provider [phone] Reason for Visit * Reason Comments Follow Up Surgery 2wk f/u, s/p skin ca removal Encounter Details Date Type Department Care Team (Late st Contact Info) Description 03/12/2016 11:20 AM EDT Office Visit [place] [id number] Miguel Angel Moreno MD [facility] [place] [address] S/P split thickness skin graft; Excessive granulation tissue Social History Tobacco Use Types Packs/Day Years [...] Taken Comments Blood Pressure - - Pulse - - Temperature - - Respiratory Rate - - Oxygen Saturation - - Inhaled Oxygen Concentration - - Weight 77.6 kg (171 lb) 03/12/2016 11:27 AM EDT Height - - Body Mass Index 24.54 02/27/2016 12:22 PM EDT documented in this encounter Patient Instructions * Patient Instructions* Miguel Angel Moreno MD - 03/12/2016 11:20 AM EDT Take your dressing off tomorrow You may get the area wet, gently wash with warm water. After you clean the area, apply Bacitracin ointment - do this once or twice a day Try to leave it open to air. However, if you do experience any bleeding or drainage you may wear the stretchy collar and apply 1-2 pieces of gauze under the collar. documented in this encounter Progress Notes * Miguel Angel Moreno MD - 03/12/2016 11:20 AM EDT [facility] Otolaryngology - Head & Neck Surgery Office Visit Adama Ginna Ram is s/p WLE SCCa of the left face/neck with staged skin graft. Post skin graft complicated by a pseudomonas infection and he is on cipro. He reports no pain. He has been wearing a face lift dressing and a bandage. He has not gotten the incision wet. On exam, the site is crusted over. This was extensively cleaned and old crusting removed. There is healthy but exuberant granulation tissue present. The skin graft has taken 70% with granulation covering the remaining 30% primarily in the post auricular region. Procedure: Debridement of skin/soft tissue. The granulation tissue over the left neck and infraauricular region was sharply debrided and removed down to healthy underlying dermis using scissors. The granulation bed was cauterized with silver nitrate. The wound was covered with bacitracin, gauze and tegaderm. Instructions given. RTC 1 week. documented in this encounter Plan of Treatment Not on file documented as of this encounter Visit Diagnoses Diagnosis S/P split thickness skin graft Excessive granulation tissue Other abnormal granulation tissue documented in this encounter Care Teams Plastic Press Molder Relationship Specialty Start Date End Date Carroll Fuentes DO [address] [place] [address] PCP - General 09/23/11 10/20/22 documented as of this encounter
--- OUTSIDE RECORDS SUMMARY | 2024-04-22 11:12 | XMS_ITS | Encounter Summary ---
Author Organization [facility] Address [facility] [place] [address] Care Team Providers Care Simulation Educator Name Role Phone Carroll Fuentes DO Primary Care Provider [phone] Reason for Visit * Reason Comments Medication Refill Encounter Details Date Type Department Care Team (Late st Contact Info) Description 05/03/2016 Refill [place] [address] Anup Hawkins MD [facility] [place] [address] Social History Tobacco Use Types Packs/Day Years [...] on filedocumented in this encounter Care Teams Simulation Educator Relationship Specialty Start Date End Date Carroll Fuentes DO [address] [place] [address] PCP - General 3/14/12 4/11/23 documented as of this encounter
--- OUTSIDE RECORDS SUMMARY | 2024-04-22 11:12 | XMS_ITS | Encounter Summary ---
Author Organization [facility] Address [facility] [place] [address] Care Team Providers Care Billing Typist Name Role Phone AlfredoCarroll allison Primary Care Provider Reason for Visit * Auth/Cert Specialty Diagnoses / Procedures Referred By Shashi ko Referred To Contact Diagnoses open defect cheek Procedures PRO ADJ TISS XFER HEAD, FAC, HAND 10.1-30 ADJ.TISSUE TRANSFER, REARRANGEMENT, 10.1 TO 30 SQ.CM, CHEEK Referral ID Status Reason Start Date Expiration Date Visits Re quested Visits Authorized [id number] 1 1 Encounter Details Date Type Department Care Team (Latest Contact Info) Description 02/20/2016 10:05 AM EDT - 02/20/2016 4:53 PM EDT Hospital Encounter [place] [phone] Miguel Angel Barajas MD [facility] [address] End stage renal disease; Anticoagulated on Coumadin; Skin cancer; Surgical defect of skin Discharge Disposition: Home Social History Tobacco Use [...] Sign Reading Time Taken Comments Blood Pressure 122/74 02/20/2016 3:00 PM EDT Pulse 56 02/20/2016 3:00 PM EDT Temperature 36 ??C (96.8 ??F) 02/20/2016 1:58 PM EDT Respiratory Rate 16 02/20/2016 3:00 PM EDT Oxygen Saturation 96% 02/20/2016 3:00 PM EDT Inhaled Oxygen Concentration - - [...] -You can reach the ENT clinic at [phone] for appointment questions. -The ENT triage nurse is available at [phone] -For urgent issues during evenings and weekends the ENT resident art conservator can be reached through [facility] aqua ammonia operator at [phone] documented in this encounter Medications at Time [...] Cheng MD - 02/20/2016 1:48 PM EDT [facility] Operative Note Patient Name: Adama Ram : [id number] MR#: [id number] Case Date: 02/20/2016 Surgeon: Surgeon(s) and Role: * Miguel Angel Barajas MD - Primary * Paxton Cheng MD - Resident-Catering Cook Preoperative diagnosis: open defect cheek Postoperative diagnosis: [...] Prothrombin Time 16.4(H) 12.0 - 15.0 sec [facility] Comment: An INR <2.0 indicates [...] International Normalization Ratio 1.3(H) 0.9 - 1.1 [facility] Blood specimen (specimen) 02/20/2016 10:22 AM EDT 02/20/2016 10:37 AM EDT Narrative Resulting Agency Comment Spec In Lab Miguel Angel Barajas MD HEMATOLOGY ORDERAB LES Performing Organization Address [facility] Co de Phone Number [facility] [place] [address] * (ABNORMAL) Potassium (02/20/2016 10:22 AM EDT) Potassium 5.4(H) 3.5 - 5.0 mmol/L [facility] MD CHEMISTRY ORDERABL ES Performing Organization Address [facility] Co de Phone Number [facility] [place] [address] documented in this encounter Visit Diagnoses Diagnosis [...] Given 02/20/2016 12:03 PM EDT 1 g lactated ringers infusion 1,000 mL 1,000 mL, [...] EVERY 1 MIN PRN, Starting on Mariza 8 at 1050, Until Mariza 8 at 1858, flush, Flush pertains to all [...] Routine documented in this encounter Care Teams Billing Typist Relationship Specialty Start Date End Date Carroll Fuentes DO [address] [place] [address] [address] [facility] 1 [place] [address] PCP - General 09/23/11 10/20/22 documented as of this encounter
--- OUTSIDE RECORDS SUMMARY | 2024-04-22 11:12 | XMS_ITS | Encounter Summary ---
Author Organization [facility] [place] [address] Care Team Providers Care Night Guard Name Role Phone Alfredo Carroll MIX Primary Care Provider [phone] Encounter Details Date Type Department Care Team (Late st Contact Info) Description 01/30/2016 [place] [phone] Angelica Anna RN Social History Tobacco Use Types Packs/Day [...] encounter Miscellaneous Notes * Telephone Encounter - Angelica Anna RN - 01/30/2016 1:46 PM EDT Patient is scheduled for surgery on 02-05-16. Phone call to the patients PCP, office to discuss Coumadin instructions. They will contact the patient with a plan to bridge him with Lovenox a few days prior to the procedure and will give him instructions as to when to restart his coumadin. documented in this encounter Plan of Treatment Not on file documented as of this encounter Visit Diagnoses Not on filedocumented in this encounter Care Teams Night Guard Relationship Specialty Start Date End Date Carroll Fuentes DO [address] [place] [address] PCP - General 09/23/11 10/20/22 documented as of this encounter
--- OUTSIDE RECORDS SUMMARY | 2024-04-22 11:12 | XMS_ITS | Encounter Summary ---
Author Organization [facility] [place] [address] Care Team Providers Care Chief Media Officer Name Role Phone Carroll Fuentes DO Primary Care Provider Encounter Details Date Type Department Care Team (Late st Contact Info) Description 02/14/2016 Telephone [place] [phone] Antony Yin Social History Tobacco Use Types Packs/Day Years [...] Miscellaneous Notes * Telephone Encounter - Antony Yin - 02/14/2016 10:34 AM EDT Spoke to patient on the phone today and set up surgery for 02/19 documented in this encounter Plan of Treatment Not on file documented as of this encounter Visit Diagnoses Not on filedocumented in this encounter Care Teams Chief Media Officer Relationship Specialty Start Date End Date Carroll Fuentes DO [address] [place] [address] [place] [address] PCP - General 09/23/11 10/20/22 documented as of this encounter
--- OUTSIDE RECORDS SUMMARY | 2024-04-22 11:12 | XMS_ITS | Encounter Summary ---
[place] [address] Care Team Providers Care Jigger Machine Operator Name Role Phone Carroll Fuentes DO Primary Care Provider [phone] Reason for Visit * Reason Onset Date Comments Medication Refill 03/17/2016 Encounter Details Date Type Department Care Team (Late st Contact Info) Description 03/17/2016 Refill Solid [place] [address] Tosha Castro, RN S/P kidney transplant Social History Tobacco [...] transplant documented in this encounter Care Teams Jigger Machine Operator Relationship Specialty Start Date End Date Carroll Fuentes DO [address] [place] [address] PCP - General 09/23/11 10/20/22 documented as of this encounter
--- OUTSIDE RECORDS SUMMARY | 2024-04-22 11:12 | XMS_ITS | Encounter Summary ---
Author Organization [facility] [place] [address] Care Team Providers Care Poultry Cleaner Name Role Phone AlfredoCarroll allison Primary Care Provider Encounter Details Date Type Department Care Team (Latest Contact Info) Description 07/06/2016 8:50 PM EST - 07/06/2016 11:59 PM [facility] [place] [address] Discharge Disposition: Home Social History Tobacco Use [...] Sig Dispensed Refills Start Date End Date multivitamin Capsule Take 1 capsule by mouth daily. 2018 cholecalciferol, Vitamin D3, 50,000 unit Capsule Take by mouth once a week. Reported on 11/26/2016 11/26/2016 PROGRAF 1 mg Capsule take 1 capsule by mouth twice a day 60 capsule 11 05/04/2016 11/03/2016 mycophenolate (CELLCEPT) 250 mg CapsuleIndications:S/ P kidney transplant Take 3 capsules by mouth 2 times daily. Kidney Transplant Z94.0. Transplant Date; 11-26-02 180 capsule 11 03/26/2016 08/14/2016 levETIRAcetam (KEPPRA) 500 mg Tablet take 1 [...] Date/Time Associated Diagnosis Comments TACROLIMUS LEVEL Routine 07/06/2016 10:2 0 AM EST documented in this encounter Results * Tacrolimus level (07/06/2016 10:20 AM EST) Tacrolimus 7.6 ng/mL [facility] Comment: Trough therapeutic: ??5-15 ng/mL Performed by ultra-performance liquid chromatography tandem mass spectrometry (UPLCMS/MS). Blood specimen (specimen) Venous Draw / Unknown 07/06/2016 10:20 AM EST 07/08/2016 8:18 AM EST Narrative Resulting Agency Comment Spec In Lab Anup Hawkins MD CHEMISTRY ORDERAB LES [facility] [place] [phone] documented in this encounter Visit Diagnoses Not on filedocumented in this encounter Care Teams Poultry Cleaner Relationship Specialty Start Date End Date Carroll Fuentes DO [address] [place] [address] PCP - General 09/23/11 10/20/22 documented as of this encounter
--- OUTSIDE RECORDS SUMMARY | 2024-04-22 11:12 | XMS_ITS | Encounter Summary ---
Author Organization [facility] [place] [address] Care Team Providers Care Carpet Installer Name Role Phone AlfredoCarroll geiger Primary Care Provider [phone] Encounter Details Date Type Department Care Team (Latest Contact Info) Description 05/20/2016 8:30 AM EST Laboratory Appointment Lab [address] [place] [address] Kidney replaced by transplant Social History Tobacco [...] Priority Date/Time Associated Diagnosis Comments HEMOGRAM STAT 05/20/2016 8:54 AM EST Kidney replaced by transplant DIFFERENTIAL, AUTOMATED STAT 05/20/2016 8:54 AM EST Kidney replaced by transplant TACROLIMUS LEVEL STAT 05/20/2016 8:54 AM EST Kidney replaced by transplant RETICULOCYTE COUNT STAT 05/20/2016 8: 54 AM EST Kidney replaced by transplant CBC (WITH DIFF) STAT 05/20/2016 8:54 AM EST Kidney replaced by transplant URIC ACID STAT 05/20/2016 8:54 AM EST Kidney replaced by transplant PHOSPHORUS STAT 05/20/2016 8:54 AM EST Kidney replaced by transplant MAGNESIUM STAT 05/20/2016 8:54 AM EST Kidney replaced by transplant CHOLESTEROL, TOTAL STAT 05/20/2016 8: 54 AM EST Kidney replaced by transplant COMPREHENSIVE METABOLIC PANEL STAT 05/20/2016 8:54 AM EST Kidney replaced by transplant PROTEIN/CREATININE RATIO, URINE STAT 05/20/2016 8:46 AM EST Kidney replaced by transplant URINALYSIS WITH REFLEX CULTURE STAT 05/20/2016 8:46 AM EST Kidney replaced by transplant documented in this encounter Results * (ABNORMAL) Differential, Automated (05/20/2016 8:54 AM EST) Neutrophil % 74.4 % [facility] Neutrophil Absolute 4.08 1.70 - 6.10 x10(3)/mc L [facility] Lymph % 14.8 % [facility] Lymphocytes Abs 0.8(L) 0.9 - 3.2 x10(3)/mc L [facility] Monocyte % 8.2 % [facility] Monocyte Abs 0.4 0.3 - 0.9 x10(3)/mc L [facility] Eos % 2.0 % [facility] Eosinophils Abs 0.1 0.0 - 0.4 x10(3)/mc L [facility] Basophil % 0.4 % [facility] Baso Absolute 0.0 0.0 - 0.1 x10(3)/mc L [facility] Immature Gran % 0.20 % [facility] Comment: Immature granulocytes(IG's)percentage and absolute count will include metamyelocytes, myelocytes, and promyelocytes. Blood smears from CBCs yielding IG's will be scanned manually for concordance. If this scan disagrees with the automated IG or if promyelocytes are noted, a manual differential will be performed. Immature Gran Absolute 0.01 0.00 - 0.04 x10(3)/ L [facility] Blood specimen (specimen) 05/20/2016 8:54 AM EST 05/20/2016 9:08 AM EST Narrative Resulting Agency Comment Spec In Lab Anup Hawkins MD HEMATOLOGY ORDERA BLES [facility] [place] [address] * (ABNORMAL) Hemogram (05/20/2016 8:54 AM EST) White Blood Cell 5.5 4.0 - 9.5 x10(3)/[facility] Red Blood Cell 3.46(L) 4.58 - 5.54 x10(6)/ L [facility] Hemoglobin 10.1(L) 13.7 - 16.5 gm/dL [facility] Hematocrit 31.9(L) 40.5 - 48.5 % [facility] Mean Cell Volume 92.2 82.9 - 93.1 fL [facility] Mean Cell Hemoglobin 29.2 27.5 - 32.1 pg [facility] Mean Cell Hemoglobin Concentration 31.7(L) 32.0 - 35.7 gm/dL [facility] Platelet 184 145 - 357 x10(3)/ L [facility] RDW Standard Deviation 48.3(H) 36.0 - 45.0 fL [facility] RDW coefficient of variation 14.3(H) 11.4 - 13.8 % [facility] Mean Platelet Volume 9.6 7.6 - 12.9 fL [facility] NRBC% auto 0.0 % [facility] NRBC Absolute 0.000 0.000 - 0.000 x10(3)/mc L [facility] Blood specimen (specimen) 05/20/2016 8:54 AM EST 05/20/2016 9:08 AM EST Narrative Resulting Agency Comment Spec In Lab Anup Hawkins MD HEMATOLOGY ORDERA BLES [facility] [place] [address] * (ABNORMAL) Comprehensive metabolic panel (non-fasting) (05/20/2016 8:54 AM EST) Glucose 68 65 - 199 mg/dL [facility] Comment:Diabetes: >=200 mg/d L plus symptoms Blood Urea Nitrogen 50(H) 10 - 20 mg/dL [facility] Creatinine 2.13(H) 0.80 - 1.50 mg/dL [facility] Comment: Please note that the pediatric reference intervals supplied above were not validated at [facility]. Results from pediatric patients should be interpreted in conjunction to the patient's age, height and muscle mass. Sodium 142 135 - 145 mmol/L [facility] Potassium 4.4 3.5 - 5.0 mmol/L [facility] Comment: Please note: ??Patients with WBC >100,000 may have falsely elevated Potassium levels. ??For accurate Potassium quantification in these patients send serum separator tube (gold top) for subsequent determinations. ??Contact the Clinical Chemistry Laboratory if there are any questions. Chloride 110(H) 98 - 107 mmol/L [facility] Carbon Dioxide 17(L) 22 - 31 mmol/L [facility] Anion Gap 15 5 - 15 mmol/L [facility] Calcium 8.8 8.5 - 10.5 mg/dL [facility] Protein, Total 6.8 6.1 - 8.0 gm/dL [facility] Albumin 4.5 3.2 - 5.2 gm/dL [facility] Aspartate Aminotransferase 16 0 - 39 unit/L [facility] Alanine Aminotransferase 11 0 - 55 unit/L [facility] Alkaline Phosphatase 103 40 - 120 unit/L [facility] Bilirubin, Total 0.4 0.2 - 1.3 mg/dL [facility] Bilirubin, Direct 0.1 0.0 - 0.3 mg/dL [facility] Est Glomerular Filtration Rate 33(L) >=60 [facility] Comment: This estimated GFR (eGFR) [...] the following links into your internet browser. [email or web address] Blood specimen (specimen) 05/20/2016 8:54 AM EST 05/20/2016 9:08 AM EST Narrative Resulting Agency Comment Spec In Lab Anup Hawkins MD CHEMISTRY ORDERAB LES Performing Organization Address [facility] Co de Phone Number [facility] [place] [address] * Magnesium (05/20/2016 8:54 AM EST) Magnesium 0.77 0.69 - 1.07 mmol/L [facility] Blood specimen (specimen) 05/20/2016 8:54 AM EST 05/20/2016 9:08 AM EST Narrative Resulting Agency Comment Spec In Lab Anup Hawkins MD CHEMISTRY ORDERAB LES Performing Organization Address [facility]/ZIP Co de Phone Number [facility] [place] [address] * Phosphorus (05/20/2016 8:54 AM EST) Phosphorus 3.9 2.5 - 4.5 mg/dL [facility] Blood specimen (specimen) 05/20/2016 8:54 AM EST 05/20/2016 9:08 AM EST Narrative Resulting Agency Comment Spec In Lab Anup Hawkins MD CHEMISTRY ORDERAB LES Performing Organization Address [facility] Co de Phone Number [facility] [place] [address] * Uric acid (05/20/2016 8:54 AM EST) Uric Acid 5.2 3.5 - 8.5 mg/dL [facility] Blood specimen (specimen) 05/20/2016 8:54 AM EST 05/20/2016 9:08 AM EST Narrative Resulting Agency Comment Spec In Lab Anup Hakwins MD CHEMISTRY ORDERAB LES Performing Organization Address [facility] Co de Phone Number [facility] [place] [address] * Tacrolimus level (05/20/2016 8:54 AM EST) Tacrolimus 3.1 ng/mL [facility] Comment: Trough therapeutic: ??5-15 ng/mL Performed by ultra-performance liquid chromatography tandem mass spectrometry (UPLCMS/MS). Blood specimen (specimen) 05/20/2016 8:54 AM EST 05/20/2016 11:29 AM EST Narrative Resulting Agency Comment Spec In Lab Anup Hawkins MD CHEMISTRY ORDERAB LES Performing Organization Address [facility] Co de Phone Number [facility] [place] [address] * Reticulocyte Count (05/20/2016 8:54 AM EST) Reticulocyte % 0.9 0.7 - 2.6 % [facility] Retic Abs # 0.030 0.030 - 0.120 x10(6)/mcL [facility] Immature Retic% 6.1 0.0 - 15.6 % [facility] Reticulated Hgb 33.0 31.3 - 40.2 pg [facility] Blood specimen (specimen) 05/20/2016 8:54 AM EST 05/20/2016 9:08 AM EST Narrative Resulting Agency Comment Spec In Lab Anup Hawkins MD HEMATOLOGY ORDERA BLES Performing Organization Address [facility] Co de Phone Number [facility] [address] * Cholesterol, total (05/20/2016 8:54 AM EST) Cholesterol, Total 131 <=199 mg/dL [facility] Comment: Recommendations of the NCEP Adult Treatment Panel for the following risk cutoff thresholds for the [place] population: Desirable: <200 mg/dL Borderline High: 200-239 mg/dL High: > or = 240 mg/dL Blood specimen (specimen) 05/20/2016 8:54 AM EST 05/20/2016 9:08 AM EST Narrative Resulting Agency Comment Spec In Lab Anup Hawkins MD CHEMISTRY ORDERAB LES Performing Organization Address [facility] de Phone Number [facility] [place] [address] * (ABNORMAL) Protein/Creatinine Ratio, urine (05/20/2016 8:46 AM EST) Creatinine, Urine 97 mg/dL [facility] Protein, Urine 44(H) 0 - 12 mg/dL [facility] Protein / Creatinine Ratio, Urine 0.5 ratio [facility] Urine specimen (specimen) 05/20/2016 8:46 AM EST 05/20/2016 8:56 AM EST Narrative Resulting Agency Comment Spec In Lab Anup Hawkins MD URINE ORDERABLES [facility] [place] [address] * (ABNORMAL) Urinalysis with reflex Culture (05/20/2016 8:46 AM EST) Glucose, Urine Dipstick Negative Negative mg/dL [facility] Protein, Urine Dipstick 30(A) Negative mg/dL [facility] Bilirubin, Urine Dipstick Negative Negative mg/dL [facility] Comment: Clinical correlation required for positive Urine Bilirubin results as false positive may occur with some drugs and drug related products. If a false positive is suspected a serum total bilirubin should be considered if clinically indicated. Urobilinogen, Urine Dipstick Normal Normal mg/dL [facility] pH, Urn (dipstick) 5.0 5.0 - 8.0 [facility] Blood, Urine Dipstick Negative Negative mg/dL [facility] Ketone, Urine Dipstick Negative Negative mg/dL [facility] Nitrite, Urine Dipstick Negative Negative [facility] Leukocytes, Urine Dipstick Negative Negative [facility] Appearance, Urine Dipstick Clear Clear [facility] Specific [place] Urine Automated 1.016 1.002 - 1.030 [facility] Color, Urine Dipstick Yellow Yellow [facility] RBC, Urine Not Present 0 - 3 /HPF [facility] WBC, Urine <1 0 - 3 /HPF [facility] Squamous Epithelial Cells, Urine <1 <=4 /HPF [facility] Reflex to Culture No [facility] Urine specimen (specimen) 05/20/2016 8:46 AM EST 05/20/2016 8:55 AM EST Narrative Resulting Agency Comment Spec In Lab Anup Hawkins MD URINE ORDERABLES [facility] [place] [address] documented in this encounter Visit Diagnoses Diagnosis Kidney replaced by transplant documented in this encounter Care Teams Carpet Installer Relationship Specialty Start Date End Date Carroll Fuentes DO [address] [place], [place] [address]Y [facility] [address] [place] [address] PCP - General 09/23/11 10/20/22 documented as of this encounter
--- OUTSIDE RECORDS SUMMARY | 2024-04-22 11:12 | XMS_ITS | Encounter Summary ---
Author Organization [facility] Address [facility] [place] [address] Care Team Providers Care Cable Splicer Name Role Phone Alfredo Sebastian MIX Primary Care Provider Reason for Visit * Auth/Cert Specialty Diagnoses / Procedures Referred By Shashi ko Referred To Contact Diagnoses skin cancer Procedures PRO EXC SKIN MALIG 3.1-4CM FACE, FACIAL PRO EXC PAROTD, LAT LOBE, DISSECT 5TH NERV EXC MALIGNANT LESION, 3.1 TO 4.0CM, FACE EXC.PAROTID TUMOR OR GLAND, LATERAL LOBE Referral ID Status Reason Start Date Expiration Date Visits Re quested Visits Authorized [id number] 1 1 Encounter Details Date Type Department Care Team (Late st Contact Info) Description 02/05/2016 7:30 AM EDT - 02/05/2016 9:43 AM EDT Surgery [place] [address] Miguel Angel Moreno MD [facility] [address] EXC MALIGNANT LESION, 3.1 TO 4.0CM, FACE (WRVU 4.34) Social History Tobacco Use Types Packs/Day Years [...] Sign Reading Time Taken Comments Blood Pressure 117/91 02/05/2016 6:45 AM EDT Pulse 45 02/05/2016 6:45 AM EDT Temperature 36.7 ??C (98.1 ??F) 02/05/2016 6:45 AM ED T Respiratory Rate 18 02/05/2016 6:45 AM EDT Oxygen Saturation 97% 02/05/2016 6:45 AM EDT Inhaled Oxygen Concentration - - Weight 75.3 kg (166 lb) 02/05/2016 6:41 AM EDT Height - - Body Mass Index 23.82 02/05/2016 6:41 AM EDT documented in this encounter Discharge Summaries * Damián Richter MD - 02/06/2016 8:40 AM EDT OTOLARYNGOLOGY - HEAD & NECK SURGERY DISCHARGE SUMMARY General Info Patient Name: Adama Ram Patient Age: 55 y.o. Birthdate: 1960 Admit date: 02/05/2016 Discharge date: 02/06/16 Attending Physician: Miguel Angel Moreno MD Admission Info Diagnoses: Squamous Cell Cancer Operations/Major Procedures: Procedure(s) (LRB): EXC MALIGNANT LESION, 3.1 TO 4.0CM, FACE (Left) @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, TOTAL, WITH UNILATERAL RADICAL NECK DISSECTION (Left) History of Presentation: Adama Ram is a very pleasant 55-year-old gentleman with a history of traumatic brain injury, seizure disorder, and chronic renal insufficiency. He has had a kidney transplant in the past, but currently has borderline kidney function. He is on immunosuppressants for his kidney transplant. The patient had been seeing Dr. Miles recently for his epilepsy followup and was noted to have a lesion in his left cheek and jaw region, which had been present for several months and had been getting progressively worse. He does have a history of basal cell cancer of the skin involving his right shoulderregion, which had been excised back in 2011. He reports that the lesion in his left cheek and jaw region is painful. Originally, he had been treating it with salicylic acid and an antibiotic ointment, but without improvement. ?? On examination, his head and face examination is significant for the lesion in question, which is along the left cheek region and angle of mandible extending down onto the neck and extended postauricularly and infraauricularly, but not involving the ear itself, and not extending into the ear canal. Facial nerve function is intact. The remainder of hishead and neck examination is unremarkable. Hospital Course: The patient was admitted through the Same Day Surgery program. The patient tolerated the above procedure well and was admitted post-operatively for routine care. His hospital course was uncomplicatedand he was deemed medically stable for discharge home at 1 Day Post-Op. Prior to discharge his painwas controlled on oral pain meds and he was tolerating a regular diet. Physical Exam on Discharge: General: NAD, non-ill appearing Face: Symmetric. Left face surgery site closed with Esmarch dressing. Incision c/d/i. Dressed with clean 4x4 gauze. Eyes: EOMI, conjunctiva healthy Ears: Auricles symmetric, no lesions Nose: Patent nares, grossly normal appearance Oral Cavity/Pharynx: Mucosa is pink, oropharynx symmetric Neck: Soft, trachea midline Chest: LCTAB RRR Neuro: Alert & oriented, moving extremities x 4 Lab Data: Recent Labs 02/05/16 0629 PT 14.9 INR 1.1 K 4.8 Imaging and Other Studies: No results found. Discharge Info Discharge Condition: Stable Discharge to: Home Discharge Medications: Your Medications New Medications Dose Details acetaminophen 500 mg Tab Commonly known as: TYLENOL Take 2 tablets by mouth every 8 hours. 1000 mg Quantity: 30 tablet Refills: 1 amoxicillin-clavulanate 875-125 mg Tab Commonly known as: AUGMENTIN Take 1 tablet by mouth 2 times daily for 7 days. 1 tablet Quantity: 14 tablet Refills: 0 Continued medications, unchanged Dose Details allopurinol 100 mg Tab Commonly known as: ZYLOPRIM TAKE ONE AND A HALF TABLETS BY MOUTH ONCE DAILY Quantity: 45 tablet Refills: 5 calciTRIol 0.5 mcg Cap Commonly known as: ROCALTROL Take 1 capsule by mouth daily. 0.5 mcg Quantity: 30 capsule Refills: 11 DILTiazem 120 mg Cp24 Commonly known as: DILTIAZEM CD take 1 capsule by mouth once daily Quantity: 90 capsule Refills: 3 hydrALAZINE 50 mg Tab Commonly known as: APRESOLINE take 1 tablet by mouth twice a day Quantity: 180 tablet Refills: 3 levETIRAcetam 500 mg Tab Commonly known as: KEPPRA take 1 tablet by mouth every morning and 2 tablets by mouth every evening Quantity: 90 tablet Refills: 0 levothyroxine 88 mcg Tab Commonly known as: SYNTHROID Take 88 mcg by mouth daily. 88 mcg Refills: 0 losartan 25 mg Tab Commonly known as: COZAAR take 1 tablet by mouth once daily Quantity: 90 tablet Refills: 3 meTOPROLOL tartrate 50 mg Tab Commonly known as: LOPRESSOR Take 50 mg by mouth 3 times daily. 50 mg Refills: 0 mycophenolate 250 mg Cap Commonly known as: CELLCEPT Take 3 capsules by mouth 2 times daily. Kidney Transplant Z94.0. Transplant Date; 11-26-02 750 mg Quantity: 180 capsule Refills: 11 PROGRAF 1 mg Cap Take 1 capsule by mouth 2 times daily. Kidney replaced by transplant 11/26/2002. Z94.0 Generic drug: tacrolimus 1 mg Quantity: 60 capsule Refills: 6 TRIMOX ORAL Take 2,000 mg by mouth. 1 hour Prior to dental procedures 2000 mg Refills: 0 warfarin 5 mg Tab Commonly known as: COUMADIN Take 1 tablet (5 mg) by mouth on , and 1.5 tablets (7.5 mg) on all other days. Weekly dose = 50 mg. Take at the same time each day, preferably between 5:00 and 6:00 PM. Quantity: 60 tablet Refills: 11 Updated Allergies/ADRs: Allergies Allergen Reactions ??? Benazepril Hcl ??? Codeine Other (See Comments) Patient does not know reaction ??? Hydrochlorothiazide ??? Pollen Extracts Sneezing/runny nose Info for Patient Patient Instructions Instructions for Patient at Discharge: What to expect: You will have soreness which will improve over the next several days. The area around the incision may be numb. This should recover over the next few months. Medications: Antibiotics - You are being given a prescription for Augmentin (amoxicillin- clavulanate). Fill thisat your local pharmacy. Take the antibiotics as prescribed Pain Control - use acetaminophen (Tylenol) and/or ibuprofen (Motrin, Advil) as needed. Incision Care: Your incision was closed with absorbable sutures. These sutures do not need to be removed. The suture will dissolve and the knot will fall off in the next 1-2 weeks. Use diluted peroxide to clean theincision and apply antibiotic ointment twice daily. Keep the incision dry for the next two days. After that you may get the area wet and pat dry. Wound Care: Change the wound dressing/packing according to the following instructions: use clean 4x4 gauze to cover the wound and tape in place with the tape provided. Do not soak or submerge your wound. Keep itclean and dry. You may sponge bathe around your surgical site. Activity: A good rule of thumb is if it hurts don't do it. Keep your head elevated when lying flat. No heavy lifting or straining for the next week. No smoking, this is important for wound healing. Diet: Resume baseline diet as tolerated. Start with soft foods and add normal foods as you feel ready. You should call your doctor if you develop: -Increasing pain and redness -Increasing drainage from the wound -Fever > 38.5Celsius or 101 Fahrenheit -Bleeding Contact: -You can reach the ENT clinic at [phone] for appointment questions. -The ENT triage nurse is available at [phone] -For urgent issues during evenings and weekends the ENT resident information technology assistant can be reached through [facility] high density finishing operator at [phone] Follow Up: You will need to follow up. Please see the appointments below. Currently Scheduled Appointments and VNA instructions: Future Appointments and Orders Future Appointments Provider Department Dept Phone 02/20/2016 1:30 PM Portillo Lujan PA Otolaryngology [phone] 03/03/2016 10:45 AM Bashir Benitez MD Dermatology at [place] [phone] 03/09/2016 1:30 PM Alexander Sage MD Dermatology at [facility] [phone] 05/20/2016 8:30 AM LAB, [facility] Lab 05/20/2016 9:30 AM Anup Hawkins MD Transplant [phone] 11/25/2016 10:30 AM LAB, [facility] Lab 3L [phone] 11/25/2016 11:30 AM Anup Hawkins MD Transplant [phone] Future Orders Complete By Expires Full code [COD2 Custom] As directed Process Instructions: 1. Completing this order indicates that the recording provider had a discussion with the patient and/or their agent regarding their wishes for resuscitation. 2. If the patient does not have decision making capacity, the provider must document within the order and in the contemporaneous progress note which of the patient's agents the discussion was held with. 3. If this Full Code Order is a revocation or cancellation of a previous DNR order and the providerrecording this order in the system is not the Attending of Record, then the recording provider willhave discussed this order with the Attending of Record and is documenting the decision of the Attending of Record obtained through explicit verbal review. Scheduling Instructions: Questions: Does patient have capacity to make decision: Yes Content of discussion: General Instructions None __ Primary Care Doctor: SEBASTIAN FUENTES DO [phone] Signed: Damián Richter MD 02/06/2016 documented in this encounter Discharge Instructions * Patient Instructions* Damián Richter MD - 02/06/2016 8:55 AM EDT Instructions for Patient at Discharge: What to expect: You will have soreness which will improve over the next several days. The area around the incision may be numb. This should recover over the next few months. Medications: Antibiotics - You are being given a prescription for Augmentin (amoxicillin- clavulanate). Fill thisat your local pharmacy. Take the antibiotics as prescribed Pain Control - use acetaminophen (Tylenol) and/or ibuprofen (Motrin, Advil) as needed. Incision Care: Your incision was closed with absorbable sutures. These sutures do not need to be removed. The suture will dissolve and the knot will fall off in the next 1-2 weeks. Use diluted peroxide to clean theincision and apply antibiotic ointment twice daily. Keep the incision dry for the next two days. After that you may get the area wet and pat dry. Wound Care: Change the wound dressing/packing according to the following instructions: use clean 4x4 gauze to cover the wound and tape in place with the tape provided. Do not soak or submerge your wound. Keep itclean and dry. You may sponge bathe around your surgical site. Activity: A good rule of thumb is if it hurts don't do it. Keep your head elevated when lying flat. No heavy lifting or straining for the next week. No smoking, this is important for wound healing. Diet: Resume baseline diet as tolerated. Start with soft foods and add normal foods as you feel ready. You should call your doctor if you develop: -Increasing pain and redness -Increasing drainage from the wound -Fever > 38.5Celsius or 101 Fahrenheit -Bleeding Contact: -You can reach the ENT clinic at [phone] for appointment questions. -The ENT triage nurse is available at [phone] -For urgent issues during evenings and weekends the ENT resident information technology assistant can be reached through [facility] high density finishing operator at [phone] Follow Up: You will need to follow up. Please see the appointments below. Currently Scheduled Appointments and VNA instructions: Future Appointments and Orders Future Appointments Provider Department Dept Phone 02/20/2016 1:30 PM Portillo Lujan PA Otolaryngology [phone] 03/03/2016 10:45 AM Bashir Benitez MD Dermatology at [place] [phone] 03/09/2016 1:30 PM Alexander Sage MD Dermatology at [facility] [phone] 05/20/2016 8:30 AM LAB, [facility] Lab [phone] 05/20/2016 9:30 AM Anup Hawkins MD Transplant [phone] 11/25/2016 10:30 AM LAB, [facility] Lab 11/25/2016 11:30 AM Anup Hawkins MD Transplant [phone] Future Orders Complete By Expires Full code [COD2 Custom] As directed Process Instructions: 1. Completing this order indicates that the recording provider had a discussion with the patient and/or their agent regarding their wishes for resuscitation. 2. If the patient does not have decision making capacity, the provider must document within the order and in the contemporaneous progress note which of the patient's agents the discussion was held with. 3. If this Full Code Order is a revocation or cancellation of a previous DNR order and the providerrecording this order in the system is not the Attending of Record, then the recording provider willhave discussed this order with the Attending of Record and is documenting the decision of the Attending of Record obtained through explicit verbal review. Scheduling Instructions: Questions: Does patient have capacity to make decision: Yes Content of discussion: documented in this encounter Medications at Time [...] as of this encounter Progress Notes * Kane Farrell RN - 02/06/2016 11:30 AM EDT Patient instructed on keeping dressing dry and intact, provided with supplies, confirmed understanding and reviewed/understood AVS. Patient denied needing pain medication and was well controlled. Able to urinate with final PVR below 400ml per orders. IV removed, tolerated all medications, and ate well this morning. Patient taken to main entrance via wheelchair and to transportation home by friends. * Damián Richter MD - 02/05/2016 6:16 PM EDT OTOLARYNGOLOGY - HEAD & NECK SURGERY POST OP CHECK Name: Adama Ram Age/Sex: 55 y.o. male Attending: Miguel Angel Moreno MD Hospital Day: 1 Day of Surgery Interval History Surgery: Procedure(s): EXC MALIGNANT LESION, 3.1 TO 4.0CM, FACE @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, TOTAL, WITH UNILATERAL RADICAL NECK DISSECTION Subjective/Events: Patient denies fever, chills, chest pain, shortness of breath, dizziness, headache, abdominal pain, nausea, vomiting, numbness, tingling. Pain well-controlled. Bladder scan for urinary retention. Retaining >400cc. Vitals Last value 24hr Range Temperature: 36.5 ??C (97.7 ??F) Temp: [36.1 ??C (97 ??F)-36.7 ??C (98.1 ??F)] Heart Rate: 54 Heart Rate: [45-58] Blood Pressure: 120/82 BP: (108-142)/(69-91) Respiratory Rate: 16 Resp: [8-18] SpO2: 96 % SpO2: [92 %-100 %] Intake & Output Intake/Output Summary (Last 24 hours) at 02/05/16 1817 Last data filed at 02/05/16 1719 Gross per 24 hour Intake 1300 ml Output 805 ml Net 495 ml Physical Exam General: NAD, non-ill appearing Face: Symmetric with Left dressing intact. Incision c/d/i Eyes: EOMI, conjunctiva healthy Ears: Auricles symmetric, no lesions Nose: Patent nares, grossly normal appearance Oral Cavity/Pharynx: Mucosa is pink, oropharynx symmetric Neck: Soft, trachea midline Chest: LCTAB RRR Neuro: Alert & oriented, moving extremities x 4 Labs Recent Labs 02/05/16 0629 PT 14.9 INR 1.1 K 4.8 Imaging No post-imaging ASSESSMENT & PLAN Adama Ram is a 55 y.o. male s/p Procedure(s): EXC MALIGNANT LESION, 3.1 TO 4.0CM, FACE @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, TOTAL, WITH UNILATERAL RADICAL NECK DISSECTION. Patient is doing well postoperatively. Straight cath protocol ordered. Continue with current care plan. __ Damián Richter MD, PGY1 02/05/16 6:17 PM Pager: [phone] * Cassie Sarmiento RN - 02/05/2016 2:01 PM EDT Pt arrived to the floor via bed. Pt denies any pain at this time. Bulky neck dressing has some moist serosanginous drainage. Pt denies numbness/tingling. VSS. Pt oriented to the room. Will continue to monitor. * Gricelda Sandoval RN - 02/05/2016 12:20 PM EDT Pt arrived in PACU at 1135. Somnolent initially and then more alert, still slightly confused to time, date and place but will continue to monitor, denies pain or nausea. Pt coccyx noted to be reddened but is blanchable, mepilex was applied and pt was placed on right side to relieve pressure and heels off loaded with pillows. Dr. Wheeler and Ramona notified as pt had no floor orders on arrival. Pt taking sips of water with no nausea. Pt sts. no family is present to visit. Pt is now alert and oriented x4 and continues to deny pain and or nausea. Handoff report given to SAVANNA Matthews in [facility], awaiting room to be cleaned and PACU staff will then transport pt to room. documented in this encounter H&P Notes * Miguel Angel Moreno MD - 02/05/2016 7:30 AM EDT Patient Name: Adama Ram Patient Age: 55 y.o. Birthdate: 1960 Admit date: 02/05/2016 Attending Physician: Miguel Angel Moreno MD Adama Ginna Ram is an 55 y.o. male. He presents with a several month history of a lesion on the left face. This was biopsied and demonstrated SCCa. Neck imaging without obvious adenopathy (no contrast due to renal function). Past Medical History Diagnosis Date ??? BP (high blood pressure) ??? DVT (deep venous thrombosis) ??? Gout ??? Hypertension ??? Kidney problem ??? Pneumonia ??? TBI (traumatic brain injury) 1979 Allergies: Allergies Allergen Reactions ??? Benazepril Hcl ??? Codeine Other (See Comments) Patient does not know reaction ??? Hydrochlorothiazide ??? Pollen Extracts Sneezing/runny nose Active Problems: * No active hospital problems. * Blood pressure (!) 117/91, pulse (!) 45, temperature 36.7 ??C (98.1 ??F), resp. rate 18, weight 75.3 kg (166 lb), SpO2 97 %. HEENT - Skin cancer, left face/upper neck extends behind the ear CV - RRR Lungs - CTA bilaterally Assessment: SCCa skin, left neck/face. Plan: WLE, parotid, possible neck dissection, possible skin graft, local regional flap or leave open for final margins. MIGUEL ANGEL MORENO MD 02/05/2016 documented in this encounter Miscellaneous Notes * Plan of Care - Cassie Sarmiento RN - 02/05/2016 7:00 PM EDT Problem: General Plan of Care Goal: Plan of Care Review 02/05/16 8339 Plan of Care Review Plan of Care Outcome Status ongoing (interventions implemented as appropriate) Progress improving Coping/Psychosocial Response Interventions Plan of Care Reviewed with patient OUTCOME EVALUATION NOTE: OUTCOME SUMMARY: Pt has done well this shift. He denies any pain/nausea. Bulky neck dressing remains in place with serosanginous drainage noted. Pt ambulated with stand by assist. He was unable to void and did require a strait cath for 600 ml. Pt is tolerating a regular diet with no c/o nausea. VSS. PLAN MOVING FORWARD: Void, continue pain control INDIVIDUALIZED FALL PREVENTION INTERVENTIONS: Patient-specific fall risk factors per assessment: [current deficits]: post-op, IV fluids infusing Assistance [level of assistance required for transfers and ambulation]: Stand by assist Supervision [direct monitoring required during toileting and ADLs]: Minimal assistance with ADLs Surveillance [continuous indirect monitoring]: q2 hour rounding; pulse oximetry; call daniels in reach Patient-specific fall prevention interventions for sensory deficits provided, if applicable: CPG GOAL OUTCOME EVALUATION: Goal: Individualization and Mutuality 02/05/16 1600 Mutuality/Individual Preferences What anxieties, fears or concerns do you have about your health or care? none What questions do you have about your health or care? none What information would help us give you more personalized care? none Goal: Fall Prevention-Safe Patient Handling 02/05/16 1552 02/05/16 1700 02/05/161854 Safety Interventions Safety Precautions/Fall Reduction fall reduction program maintained;lighting adjusted for task/safety;low bed;environmental modification;nonskid shoes/slippers when out of bed;room near unit station -- -- Musculoskeletal Interventions Activity/Level of Assistance -- up in chung;with stand by assist -- Positioning HOB up 30 degrees -- -- Self-Care Promotion -- -- independence encouraged while providing assistance Toribio Fall Risk History of Falling 0 -- -- Secondary Diagnosis 15 -- -- Ambulatory Aids 0 -- -- Intravenous Therapy/Heparin/Saline Lock 20 -- -- Gait/Transferring 0 -- -- Mental Status 0 -- -- Score 35 -- -- Activity and Safety Assistive Device -- None -- OTHER Toribio Fall Risk Med -- -- Goal: Infection Control 02/05/16 15502/05/161854 Safety Interventions Isolation Precautions -- standard precautions maintained Infection Prevention promote handwashing;rest/sleep promoted;nutrition promoted;hydration promoted;environmental surveillance;bronchial hygiene promoted -- Coping/Psychosocial Response Interventions Counseling goal setting facilitated -- Goal: Discharge Needs Assessment 02/05/161854 Discharge Needs Assessment Concerns to be Addressed no discharge needs identified Readmission Within the Last 30 Days no previous admission in last 30 days Equipment Needed After Discharge none Current Health Anticipated Changes Related to Illness none Self-Care Equipment Currently Used at Home none Living Environment Transportation Available family or friend will provide * Op Note - Miguel Angel Moreno MD - 02/05/2016 2:17 PM EDT [facility] [place] Operative Note Patient Name: Adama Ram : [id number] MR#: [id number] Case Date: 02/05/2016 Surgeon: Surgeon(s) and Role: * Miguel Angel Moreno MD - Primary Preoperative diagnosis: skin cancer Postoperative diagnosis: skin cancer Procedure(s): 1 - EXC MALIGNANT LESION, 3.1 TO 4.0CM, FACE, LEFT 2 - LEFT 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, TOTAL, WITH UNILATERAL RADICAL NECK DISSECTION INDICATIONS FOR PROCEDURE: This patient has a history of kidney transplantation and is on immunosuppression. He presents with a progressively enlarging lesion on the left cheek region. This was biopsy-proven squamous cell carcinoma. He was brought to the operating room for excision for treatment and management of this skin cancer involving the left facial region. PROCEDURE: Informed consent was obtained. The patient was brought to the operating room and placed supine on the operating room table. General anesthesia was initiated without difficulty. The table was turned 180 degrees. Time out was then performed. The patient's left face and neck were prepped and draped in the usual fashion for the abovementioned procedure. The skin cancer in question was measured at 4 cm in diameter. This was then marked out with a 1 cm margin and injected with 1% Xylocaine and 1:200,000 of Epinephrine. The excision, with margins, would involve the lower left cheek into the upper neck over the sternocleidomastoid muscle posteriorly along the postauricular region and then coming up through the inferior portion of the earlobe and then onto the cheek again. Once sufficient time had passed for the injection and after nerve monitoring electrodes were placed in the orbicularis boogie and orbicularis oculi muscles, we then proceeded with the excision. An incision was made through the skin and subcutaneous tissue down to the SMAS layer along the parotid and down to and through the platysma more inferiorly and posteriorly down onto the sternocleidomastoid muscle and in the postauricular region down onto the fascia overlying the trapezius. The skin was then elevated off of the muscle and then, the approach was essentially in a circumferential fashion but we elevated the skin off of the muscle, off the postauricular region. We dissected the skin and fascia off of the conchal bowl and the tragus, extended dissection deep to find the tragal pointer. As we elevated the specimen off the sternocleidomastoid muscle, we came around the muscle, identified the eleventh nerve, traced it up to the digastric, skeletonized the digastric muscle. We then cleared out the lymph nodes in level 2 and 2A by just carrying the dissection down to the floor of the neck and overlying cervical rootlets, elevating those contents off of the floor of the neck and then off the internal jugular vein in a 360 degree fashion and partially off of the carotid vagus nerves. The hypoglossal nerve was also identified and level 2A was then dissected free and submitted as its own specimen. We then dissected out level 2B by tracing out the digastric posteriorly, carrying the dissection back to the posterior edge of the sternocleidomastoid muscle and resecting the contents deep to the muscle superior to the eleventh nerve. This was submitted as level 2B. We then, once we found the digastric and tragal pointer, we then identified the main trunk of the facial nerve. Once we found the main trunk of the facial nerve, we then traced out the trunk to the pes anserine. Upper and lower divisions were further traced out. The upper division was traced out enough to allow for mobilization of the specimen. Once this was accomplished, we then started to trace out the lower division branches, elevating the parotid gland and the skin specimen together and then making our final cuts anteriorly with the nerve branches in view. The specimen was then removed from the field and oriented on a card with a clock face orientation. Hemostasis was maintained with bipolar cautery. The harmonic scalpel was not utilized for this operation. The main trunk of the facial nerve was then stimulated with the Prass probe and all branches of the facial nerve were noted to be intact with stimulation. A large piece of Gelfilm soaked in thrombin was then placed over the defect and filling the space. This was done after a Valsalva maneuver demonstrated no bleeding. Then, a piece of Esmarch dressing was then applied and sutured in placing using a 4-0 running chromic suture. The patient was then turned back to Anesthesia for extubation with no complication. Attestation: Case Date: 02/05/2016 I performed this procedure without the involvement of a resident. MIGUEL ANGEL MORENO MD 02/05/2016 documented in this encounter Plan of Treatment Not on file documented as of this encounter Procedures Procedure Name Priority Date/Time Associated Diagnosis Comments DIVING SUPERVISOR SCAN 02/09/2016 12:00 AM EDT ECG SCAN 02/06/2016 12:00 AM EDT EXC PAROTID TUMOR/PAROTID GLAND TOTAL W UNILAT RAD NECK DISSECTION Routine 02/05/2016 11:10 AM EDT Skin cancer SPECIMEN TO PATHOLOGY Routine 02/05/2016 10:44 AM EDT SPECIMEN TO PATHOLOGY Routine 02/05/2016 10:26 AM EDT SPECIMEN TO PATHOLOGY Routine 02/05/2016 10:20 AM EDT SURGICAL PATHOLOGY REPORT Routine 02/05/2016 10:19 AM EDT @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, TOTAL, WITH UNILATERAL RADICAL NECK DISSECTION (WRVU 22.66) Yes 02/05/2016 7:37 AM EDT Skin cancer EXC MALIGNANT LESION, 3.1 TO 4.0CM, FACE (WRVU 4.34) Yes 02/05/2016 7:37 AM EDT Skin cancer PROTHROMBIN TIME STAT 02/05/2016 6:29 AM EDT Anticoagulated on Coumadin POTASSIUM Routine 02/05/2016 6:29 AM EDT documented in this encounter Results * SCAN DOC: DIVING SUPERVISOR (02/09/2016 12:00 AM EDT) Anatomical Region Laterality Modality Other Scanning Provider MEDIA MGR SCAN EXT O RDR/RSLT * SCAN DOC: ECG (02/06/2016 12:00 AM EDT) Scanning Provider MEDIA MGR SCAN EXT O RDR/RSLT * Specimen to Pathology (surgical or derm) (02/05/2016 10:44 AM EDT) AP Specimen 02/05/2016 10:4 4 AM EDT 02/05/2016 10:44 AM EDT Narrative [facility] - 02/05/2016 10:44 AM EDT Specimen requisition ordered. ??Separate Pathology report to follow Miguel Angel Moreno MD PATHOLOGY/CYTOLOGY ORDERABLES Performing Organization Address [facility] [place] [address] * Specimen to Pathology (surgical or derm) (02/05/2016 10:26 AM EDT) AP Specimen 02/05/2016 10:2 6 AM EDT 02/05/2016 10:26 AM EDT Narrative [facility] - 02/05/2016 10:26 AM EDT Specimen requisition ordered. ??Separate Pathology report to follow Miguel Angel Moreno MD PATHOLOGY/CYTOLOGY ORDERABLES Performing Organization Address [facility] [place] [address] * Specimen to Pathology (surgical or derm) (02/05/2016 10:20 AM EDT) AP Specimen 02/05/2016 10:2 0 AM EDT 02/05/2016 10:20 AM EDT Narrative [facility] - 02/05/2016 10:20 AM EDT Specimen requisition ordered. ??Separate Pathology report to follow Miguel Angel Moreno MD PATHOLOGY/CYTOLOGY ORDERABLES Performing Organization Address [facility] [place] [address] * Surgical Pathology Report (02/05/2016 10:19 AM EDT) Final Diagnosis [id number] ? Location: [facility]; SS14; A The signing pathologist has (i) examined the relevant preparation(s) for the specimen(s) and (ii) rendered or confirmed the diagnosis(es). . 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 maximal diameter; 1.8 cm deep. ??Tumor invades to deep subcutis. ??Margins of excision ?? negative for malignancy; ?? All skin margins ??> ??1.0 cm from closest tumor by microscopic examination ??Lymphatic invasion identified. ??Perineural invasion absent ??Superficial parotid gland ?? negative for malignancy ??One (0/1) lymph node ?? negative for malignancy ??Actinic keratosis and elastosis. 02/10/16 [facility] 02/10/16 Verified by: ? Matt Castellanos MD ?Pathologist ?(Electronic Signature) The attending pathologist whose signature appears on this report has reviewed all diagnostic slides and has edited the gross and/or microscopic portion of the report in rendering the final pathologic diagnosis. CLINICAL INFORMATION Specimen Submitted: A - Left level 2a B - Left level 2b C - Left parotidectomy and skin cancer resection, orientation per card Clinical History: Skin cancer Clinical Diagnosis: Same SPECIMEN PROCESSING A - ??Labeled/Fixativ e: Left level IIA, fresh. Quantity/Size: Single, 3.9 x 2.9 x 0.8 cm. Tissue Description: Yellow, lobular adipose tissue. Sectioning reveals seven lymph nodes, the largest 1.2 x 0.7 x 0.6 cm. Sections/Processi ng: (1-2) one lymph node in each cassette; (3) two bisected lymph nodes, one inked black; (4) two lymph nodes; (5) one lymph node bisected. (R5) B - ??Labeled/Fixativ e: Left level IIB, fresh. Quantity/Size: Single, 2.7 x 1.6 x 0.9 cm. Tissue Description: Yellow, lobular adipose tissue. Sectioning reveals three lymph nodes, the largest 0.7 x 0.3 x 0.4 cm. Sections/Processi ng: (1) one lymph node bisected; (2) two lymph nodes. (R2) . SPECIMEN PROCESSING C - ??Labeled/Fixativ e: Left parotidectomy and skin cancer resection, orientation per card, fresh. Qty/Size: Single, 6.6 x 5.4 x 1.8 cm. Tissue Description: Oriented skin and parotid resection. Orientation: ?The specimen is received oriented by the surgeon with the 12 o 'clock, posterior auricular, 6 o 'clock, and 9 o 'clock margins labeled. Skin: There is a small rim of smith and brown skin, with hair on the 9 o ?'clock and 6 o 'clock margins. Margins: 0.7 cm to the posterior auricular margin, 0.6 cm to the ear lobe margin (12 o 'clock), 0.7 cm to the 9 o 'clock margin, 1.2 cm to the 6 o ' clock margin, and 0.2 cm to the 3 o 'clock margin. Lesion: Ulcerating, 4.7 x 4.6 x 1.7 cm with a 1.9 x 1.4 cm area of exophytic growth. On sectioning the lesion is white with focal areas of necrosis, and has pushing borders into the parotid gland but does not appear to invade. Photographs: ? Photographs are taken. Sections/Processi ng: The posterior auricular margin is inked orange, earlobe (12 o 'clock) margin is inked blue, the 9 o 'clock margin is inked red, the 6 o ??'clock margin is inked yellow, 3 o ??'clock to 6 o 'clock is inked green, and the deep margin is inked black. (1-3) tumor to 9 o ??'clock margin; (4) tumor to earlobe (12 o ??'clock) margin; (5) tumor to posterior auricular margin; (6-8) tumor to 3 o ?'clock margin; (9) tumor to 6 o 'clock margin; (10) tumor to parotid; (11) nearest tumor to deep margin. (R 11) ??njo 02/10/2016 9:56 AM EDT [facility] PAROTID GLAND STRUCTURE / Unknown 02/05/2016 10:19 AM EDT 02/05/2016 10:19 AM EDT BIOPSY SPECIMEN / Unknown 02/05/2016 10:19 AM EDT 02/05/2016 10:19 AM EDT PAROTID GLAND STRUCTURE / Unknown 02/05/2016 10:19 AM EDT 02/05/2016 10:19 AM EDT Miguel Angel Moreno MD PATHOLOGY/CYTOLOGY ORDERABLES Performing Organization Address [facility] Co de Phone Number [facility] [place] [place] [address] * Potassium (02/05/2016 6:29 AM EDT) Potassium 4.8 3.5 - 5.0 mmol/L [facility] Comment: Please note: ??Patients with WBC >100,000 may have falsely elevated Potassium levels. ??For accurate Potassium quantification in these patients send serum separator tube (gold top) for subsequent determinations. ??Contact the Clinical Chemistry Laboratory if there are any questions. Blood specimen (specimen) 02/05/2016 6:29 AM EDT 02/05/2016 6:38 AM EDT Narrative Resulting Agency Comment Spec In Lab Paxton Longoria MD CHEMISTRY ORDERABLES Performing Organization Address [facility] Co de Phone Number [facility] [place] [address] * Prothrombin Time (02/05/2016 6:29 AM EDT) Prothrombin Time 14.9 12.0 - 15.0 sec [facility] Comment: An INR [...] depending on clinical circumstances. International Normalization Ratio 1.1 0.9 - 1.1 [facility] Blood specimen (specimen) 02/05/2016 6:29 AM EDT 02/05/2016 6:38 AM EDT Narrative Resulting Agency Comment Spec In Lab Miguel Angel Moreno MD HEMATOLOGY ORDERAB LES [facility] [place] [place] [address] documented in this encounter Visit Diagnoses Diagnosis Anticoagulated on Coumadin Encounter for therapeutic drug monitoring Skin cancer Unspecified malignant neoplasm of skin, site unspecified Skin cancer Unspecified malignant neoplasm of skin, site unspecified documented in this encounter Admitting Diagnoses Diagnosis Squamous cell carcinoma of skin of other parts of face documented in this encounter Administered Medications Inactive Administered Medications - up to 3 most recent administrations Medication Order MAR Action Action Date Dose Rate Site acetaminophen (TYLENOL) tablet 1,000 mg 1,000 mg, Oral, EVERY 8 HOURS, First dose on Wed02/05/16 at 1430, Until Discontinued, Not to exceed 4,000 mg acetaminophen from all sources per 24 hours. 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., Routine Given 02/06/2016 6:59 AM EDT 1,000 mg Given 02/05/2016 10:51 PM EDT 1,000 mg Given 02/05/2016 3:46 PM EDT 1,000 mg allopurinol (ZYLOPRIM) tablet 150 mg 150 mg, Oral, DAILY, First dose on Wed02/06/16 at 0900, Until Discontinued, Routine Given 02/06/2016 9:16 AM EDT 150 mg amoxicillin-clavulanate (AUGMENTIN) 875-125 mg per tablet 1 tablet 1 tablet, Oral, 2 TIMES DAILY, First dose on Wed02/05/16 at 1700, Until Discontinued, Routine, Indication for (Active or Suspected): Prophylaxis Given 02/06/2016 9:16 AM EDT 1 tablet Given 02/05/2016 5:21 PM EDT 1 tablet dextrose 5% and sodium chloride 0.45% infusion 1,000 mL, at 100 mL/hr, Intravenous, CONTINUOUS, Starting on Wed02/05/16 at 1315, Until Wed02/06/16 at 1333 New 02/06/2016 7:03 AM EDT 1,000 mLs 100 m L/hr New 02/05/2016 9:25 PM EDT 1,000 mLs 100 mL/hr New 02/05/2016 1:02 PM EDT 1,000 mLs 100 mL/hr DILTiazem (DILTIAZEM CD) ER capsule 120 mg 120 mg, Oral, DAILY, First dose on Wed02/06/16 at 0900, Until Discontinued, DO NOT CRUSH OR OPEN, Routine Given 02/06/2016 9:16 AM EDT 120 mg gelatin adsorbable 100 (GELFOAM) sponge ONCE PRN, Starting on Wed02/05/16 at 1052, Until Wed02/06/16 at 1333, Intra-Operative (Intra-Procedure), Routine Given 02/05/2016 10:52 AM EDT 1 each 19- Surgical Site hydrALAZINE (APRESOLINE) tablet 50 mg 50 mg, Oral, 2 TIMES DAILY, First dose on Wed02/05/16 at 2100, Until Discontinued, Take with Food, Routine Given 02/06/2016 9:17 AM EDT 50 mg Given 02/05/2016 9:18 PM EDT 50 mg lactated ringers infusion 1,000 mL 1,000 mL, at 100 mL/hr, Intravenous, CONTINUOUS, Starting on Wed02/05/16 at 0700, Until Wed02/05/16 at 1251, Day of Surgery (Day of Procedure) New 02/05/2016 7:18 AM EDT 1,000 mLs 100 mL/hr levETIRAcetam (KEPPRA) tablet 500 mg 500 mg, Oral, 2 TIMES DAILY, First dose on Wed02/05/16 at 2100, Until Discontinued, Take 1 in the AM and 1 in the PM, Routine Given 02/06/2016 9:17 AM EDT 500 mg Given 02/05/2016 9:12 PM EDT 500 mg levothyroxine (SYNTHROID) tablet 88 mcg 88 mcg, Oral, EVERY MORNING, First dose on Wed02/06/16 at 0600, Until Discontinued, Routine Given 02/06/2016 6:58 AM EDT 88 mcg lidocaine (XYLOCAINE) 10 mg/mL (1 %) injection 3 mg 3 mg (0.3 mL), Subcutaneous, ONCE PRN, 1 dose, Starting on Wed02/05/16 at 0633, Until Wed02/05/16 at 0718, for discomfort with PIV insertion, Day of Surgery (Day of Procedure), Routine Given 02/05/2016 7:18 AM EDT 3 mg lidocaine-EPINEPHrine 1 %-1:200,000 injection ONCE PRN, Starting on Wed02/05/16 at 0834, Until Wed02/06/16 at 1333, Intra-Operative (Intra-Procedure), Routine Given 02/05/2016 8:34 AM EDT 10 mLs 19- Surgical Site losartan (COZAAR) tablet 25 mg 25 mg, Oral, DAILY, First dose on Wed02/06/16 at 0900, Until Discontinued, Routine Given 02/06/2016 9:17 AM EDT 25 mg meTOPROLOL tartrate (LOPRESSOR) tablet 50 mg 50 mg, Oral, 3 TIMES DAILY, First dose on Wed02/05/16 at 2100, Until Discontinued, Routine Given 02/06/2016 9:18 AM EDT 50 mg mycophenolate (CELLCEPT) capsule 750 mg 750 mg, Oral, 2 TIMES DAILY, First dose on Wed02/05/16 at 2100, Until Discontinued, DO NOT CRUSH OR OPEN, Routine Given 02/06/2016 9:18 AM EDT 750 mg Given 02/05/2016 9:09 PM EDT 750 mg ondansetron (ZOFRAN) injection 4 mg 4 mg, Intravenous, EVERY 8 HOURS PRN, Starting on Wed02/05/16 at 1352, Until Wed02/06/16 at 1333, Nausea, May repeat times one in 30 minutes if ineffective. If multiple antiemetics are ordered, give ondansetron first. ondansetron (ZOFRAN) tablet 4 mg 4 mg, Oral, EVERY 8 HOURS PRN, Starting on Wed02/05/16 at 1352, Until Wed02/06/16 at 1333, Nausea, Vomiting, If multiple antiemetics are ordered, use ondansetron first. PO Preferred. If patient unable to take PO, may give IV if ordered. May repeat times one in 45 minutes if ineffective. If unable to take PO, may give IV., Routine sodium chloride 0.9 % flush 5 mL 5 mL, Intravenous, 2 TIMES DAILY, First dose on Wed02/05/16 at 1415, Until Discontinued, Routine Given 02/05/2016 3:46 PM EDT 5 mLs tacrolimus (PROGRAF) capsule 1 mg 1 mg, Oral, 2 TIMES DAILY, First dose on Wed02/05/16 at 2100, Until Discontinued, Routine Given 02/06/2016 9:18 AM EDT 1 mg Given 02/05/2016 10:49 PM EDT 1 mg thrombin (bovine) (THROMBIN-JMI) solution ONCE PRN, Starting on Wed02/05/16 at 1051, Until Wed02/06/16 at 1333, Intra-Operative (Intra-Procedure) Given 02/05/2016 10:51 AM EDT 5,000 Units 19- Surgical Site documented in this encounter Active and Recently Administered Medications Times are shown in EDT. Scheduled Medication Order 02/04/2016 02/05/2016 02/06/2016 acetaminophen (TYLENOL) tablet 1,000 mg 1,000 mg, Oral, EVERY 8 HOURS, First dose on Wed02/05/16 at 1430, Until Discontinued, Not to exceed 4,000 mg acetaminophen from all sources per 24 hours. 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., Routine 1546 (Given - Provider: Cassie Sarmiento RN)2251 (Given - Provider: Fátima Carroll RN) 0659 (Given - Provider: Fátima Carroll RN) allopurinol (ZYLOPRIM) tablet 150 mg 150 mg, Oral, DAILY, First dose on Wed02/06/16 at 0900, Until Discontinued, Routine 0916 (Given - Provid er: Kane Farrell, SAVANNA) amoxicillin-clavulanate (AUGMENTIN) 875-125 mg per tablet 1 tablet 1 tablet, Oral, 2 TIMES DAILY, First dose on Wed02/05/16 at 1700, Until Discontinued, Routine, Indication for (Active or Suspected): Prophylaxis 1721 (Given - Provider: Cassie Sarmiento RN) 0916 (Given - Provider: Kane Farrell, SAVANNA) ceFAZolin (ANCEF) 2g in dextrose 5% 50 mL (COMPLETED) 2 g, Intravenous, ONCE, 1 dose, On Wed02/05/16 at 0800, Administer over 30 Minutes, Indication for (Active or Suspected): Prophylaxis 822 (Given - Provider: Ronnell Sheriff MD) DILTiazem (DILTIAZEM CD) ER capsule 120 mg 120 mg, Oral, DAILY, First dose on Wed02/06/16 at 0900, Until Discontinued, DO NOT CRUSH OR OPEN, Routine 915 (Given - Provid er: Kane Farrell RN) hydrALAZINE (APRESOLINE) tablet 50 mg 50 mg, Oral, 2 TIMES DAILY, First dose on Wed02/05/16 at 2100, Until Discontinued, Take with Food, Routine 2117 (Given - Provider: Fátima Carroll RN) 916 (Given - Provider: Kane Farrell RN) levETIRAcetam (KEPPRA) tablet 500 mg 500 mg, Oral, 2 TIMES DAILY, First dose on Wed02/05/16 at 2100, Until Discontinued, Take 1 in the AM and 1 in the PM, Routine 2111 (Given - Provider: Fátima Carroll RN) 916 (Given - Provider: Kane Farrell RN) levothyroxine (SYNTHROID) tablet 88 mcg 88 mcg, Oral, EVERY MORNING, First dose on Wed02/06/16 at 0600, Until Discontinued, Routine 657 (Given - Provid er: Fátima Carroll RN) losartan (COZAAR) tablet 25 mg 25 mg, Oral, DAILY, First dose on Wed02/06/16 at 0900, Until Discontinued, Routine 916 (Given - Provid er: Kane Farrell RN) meTOPROLOL tartrate (LOPRESSOR) tablet 50 mg 50 mg, Oral, 3 TIMES DAILY, First dose on Wed02/05/16 at 2100, Until Discontinued, Routine 2099 (Not Given - Provider: Fátima Carroll RN - Reason: See comment) 917 (Given - Provider: Kane Farrell RN) mycophenolate (CELLCEPT) capsule 750 mg 750 mg, Oral, 2 TIMES DAILY, First dose on Wed02/05/16 at 2100, Until Discontinued, DO NOT CRUSH OR OPEN, Routine 2108 (Given - Provider: Fátima Carroll RN) 917 (Given - Provider: Kane Farrell RN) sodium chloride 0.9 % flush 5 mL 5 mL, Intravenous, 2 TIMES DAILY, First dose on Wed02/05/16 at 1415, Until Discontinued, Routine 1546 (Given - Provider: Cassie Sarmiento RN)2100 (Not Given - Provider: Fátima Carroll RN - Reason: See comment - Comment: not given running IV) 0900 (Not Given - Provider: Kane Farrell RN - Reason: See comment - Comment: infusing) tacrolimus (PROGRAF) capsule 1 mg 1 mg, Oral, 2 TIMES DAILY, First dose on Wed02/05/16 at 2100, Until Discontinued, Routine 2249 (Given - Provider: Fátima Carroll RN) 0918 (Given - Provider: Kane Farrell RN) Continuous Medication Order 02/04/2016 02/05/2016 02/06/2016 dextrose 5% and sodium chloride 0.45% infusion 1,000 mL, at 100 mL/hr, Intravenous, CONTINUOUS, Starting on Wed02/05/16 at 1315, Until Mariza 02/06/16 at 1333 1302 (New Bag - Provider: Gricelda Sandoval, SAVANNA)2125 (New Bag - Provider: Fátima Carroll, SAVANNA) 0703 (New Bag - Provider: Fátima Carroll RN) lactated ringers infusion 1,000 mL (CANCELED) 1,000 mL, at 100 mL/hr, Intravenous, CONTINUOUS, Starting on Wed02/05/16 at 0700, Until Wed02/05/16 at 1251, Day of Surgery (Day of Procedure) 0718 (New Bag - Provider: Taiwo Swan RN)1019 (Stopped - Provider: Ronnell Sheriff MD) sodium chloride 0.9% infusion (CANCELED) 1,000 mL, at 100 mL/hr, Intravenous, CONTINUOUS, Starting on Wed02/05/16 at 0700, Until Wed02/05/16 at 1251, Day of Surgery (Day of Procedure) 1020 (New Bag - Provider: Ronnell Sheriff MD)1141 (Anesthesia Volume Adjustment - Provider: Ronnell Sheriff MD)1303 (Stopped - Provider: Gricelda Sandoval RN) PRN Medication Order 02/04/2016 02/05/2016 02/06/2016 gelatin adsorbable 100 (GELFOAM) sponge (CANCELED) ONCE PRN, Starting on Wed02/05/16 at 1052, Until Mariza 02/06/16 at 1333, Intra-Operative (Intra-Procedure), Routine 1052 (Given - Provider: Jos Moreno MD) lidocaine (XYLOCAINE) 10 mg/mL (1 %) injection 3 mg (COMPLETED) 3 mg (0.3 mL), Subcutaneous, ONCE PRN, 1 dose, Starting on Wed02/05/16 at 0633, Until Wed02/05/16 at 0718, for discomfort with PIV insertion, Day of Surgery (Day of Procedure), Routine 0718 (Given - Provider: Regino Swan RN) lidocaine (XYLOCAINE) 10 mg/mL (1 %) injection 3 mg 3 mg (0.3 mL), Subcutaneous, ONCE PRN, 1 dose, Starting on Wed02/05/16 at 1352, Until Mariza 02/06/16 at 1333, for discomfort with PIV insertion, Routine lidocaine-EPINEPHrine 1 %-1:200,000 injection (CANCELED) ONCE PRN, Starting on Wed02/05/16 at 0834, Until Mariza 02/06/16 at 1333, Intra-Operative (Intra-Procedure), Routine 0834 (Given - Provider: Jos Moreno MD) ondansetron (ZOFRAN) injection 4 mg(Linked Group 1) 4 mg, Intravenous, EVERY 8 HOURS PRN, Starting on Wed02/05/16 at 1352, Until Mariza 02/06/16 at 1333, Nausea, May repeat times one in 30 minutes if ineffective. If multiple antiemetics are ordered, give ondansetron first. ondansetron (ZOFRAN) tablet 4 mg(Linked Group 1) 4 mg, Oral, EVERY 8 HOURS PRN, Starting on Wed02/05/16 at 1352, Until Mariaz 02/06/16 at 1333, Nausea, Vomiting, If multiple antiemetics are ordered, use ondansetron first. PO Preferred. If patient unable to take PO, may give IV if ordered. May repeat times one in 45 minutes if ineffective. If unable to take PO, may give IV., Routine sodium chloride 0.9 % flush 5-20 mL 5-20 mL, Intravenous, EVERY 1 MIN PRN, Starting on Wed02/05/16 at 1352, Until Mariza 02/06/16 at 1333, flush, Flush pertains to all indwelling lines. Flush per protocol found in the job aid using the link provided on this medication record., Routine thrombin (bovine) (THROMBIN-JMI) solution (CANCELED) ONCE PRN, Starting on Wed02/05/16 at 1051, Until Mariza 02/06/16 at 1333, Intra-Operative (Intra-Procedure) 1051 (Given - Provider: Jos Moreno MD - Comment: Gelfoam soaked with topical 5000 units of tjrombin) Linked Groups Order Group 1: ondansetron (ZOFRAN) tablet 4 mgJump to med 4 mg, Oral, EVERY 8 HOURS PRN, Starting on Wed02/05/16 at 1352, Until Mariza 02/06/16 at 1333, Nausea, Vomiting, If multiple antiemetics are ordered, use ondansetron first. PO Preferred. If patient unable to take PO, may give IV if ordered. May repeat times one in 45 minutes if ineffective. If unable to take PO, may give IV., Routine Or ondansetron (ZOFRAN) injection 4 mgJump to med 4 mg, Intravenous, EVERY 8 HOURS PRN, Starting on Wed02/05/16 at 1352, Until Mariza 02/06/16 at 1333, Nausea, May repeat times one in 30 minutes if ineffective. If multiple antiemetics are ordered, give ondansetron first. 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 [place] [address] PCP - General 09/23/11 10/20/22 documented as of this encounter
--- OUTSIDE RECORDS SUMMARY | 2024-04-22 11:12 | XMS_ITS | Encounter Summary ---
Author Organization [facility] Address [facility] [place] [address] Care Team Providers Care Sales Planning Manager Name Role Phone AlfredoCarroll allison Primary Care Provider [phone] Reason for Visit * Auth/Cert Specialty Diagnoses / Procedures Referred By Shashi ko Referred To Contact Diagnoses skin cancer Procedures PRO EXC SKIN MALIG 3.1-4CM FACE, FACIAL PRO EXC PAROTD, LAT LOBE, DISSECT 5TH NERV EXC MALIGNANT LESION, 3.1 TO 4.0CM, FACE EXC.PAROTID TUMOR OR GLAND, LATERAL LOBE Referral ID Status Reason Start Date Expiration Date Visits Re quested Visits Authorized [id number] 1 1 Encounter Details Date Type Department Care Team (Late st Contact Info) Description 02/05/2016 7:30 AM EDT Anesthesia Event [place] [id number] Paxton Longoria MD [facility] [place] [address] Cally Olson, PREDATORY H[facility]TER [address] [facility] [address] [place] [address] Anesthesia Record Procedure Summary Procedure Name Responsible Anesthesiologist Anesthesia Start Time Anesthesia Stop Time EXC MALIGNANT LESION, 3.1 TO 4.0CM, FACE (WRVU 4.34) (Left: Face) Paxton Longoria MD 02/05/16 0730 02/05/16 1141 Events Date Time Event Comment 02/05/2016 0719 0730 Start 0741 AN Verify 0746 An Start Data 0806 Quick Note Bradycardia to 35 following FTL 50 mcg. Unresponsive to glycopyrolate. Atropine 0.4 mg given w/o significant response. Additional 0.4 atropine with HR rising slowly into 50'2. Zoll pads placed A/P in case temporary pacing required-not utilized. 0823 An Induction 0823 An Intubation 0823 Anesthesia Ready 0832 Procedure Start 0854 Break/Relief In PAXTON HARPER MD 0905 Break/Relief Out 1129 Extubation/LMA Out 1132 an stop data 1141 Recovery or ICU Handoff Randa ent care was transferred to the destination unit staff after review of the patient's medical history, current anesthetic/surgical status and plan, according to the Provider Handoff Checklist. 1141 Stop Meds Name Total Midazolam 1 mg fentaNYL 100 mcg Propofol 260 mg ePHEDrine 80 mg Ondansetron 4 mg Dexamethasone 4 mg Glycopyrrolate 0.2 mg ceFAZolin (ANCEF) 2g in dextrose 5% 50 m L 2 g Atropine 0.8 mg Succinylcholine 50 mg HYDROmorphone 1.2 mg lactated ringers infusion 1,000 mL 1,000 mL sodium chloride 0.9% infusion 200 mL * Agents Name O2 Air N2O Sevoflurane (et) * Blood No blood administrations on file. Lines, Drains, and Airways Type Details Placement Removal Incision 04/19/12; shoulder; 02/05/16; 1050 04/19/12 0000 by Nitza Hammer RN 02/05/16 1050 by Gricelda Sandoval RN Incision 11/20/15; arm; verti constance; 02/05/16; 1050 11/20/15 0000 by Jerel Jacobsen RN 02/05/16 1050 by Gricelda Sandoval RN Incision 02/05/16; face; 04/19/18; 92502/05/16 0000 by Jennifer Rueda RN 04/19/18 09 by Karuna Nagel RN (RETIRED) Peripheral IV Line - Single Lumen 02/05/16; 716; basilic vein right (medial side of arm); cvcl-xot-ymanuz catheter system; 18 gauge; BSmithRN; intradermal injection; 02/06/16; 1115 02/05/16 0717 by Taiwo Swan RN 02/06/16 1115 by Kane Farrell RN ETT Mask Ventilation: Ea sy (1); ETT Type: Cuffed; ETT Size: 7 mm; Mac Blade: 4; Attempts: 1; Laryngoscopy Grade: 1; Secured at Teeth: 22 cm; Inserted by: dominguez. JONES; Removal Date: 02/05/16; Removal Time: 113102/05/16 0823 by Ronnell Sheriff MD 02/05/16 113 by Ronnell Sheriff MD documented in this encounter Social History [...] Postprocedure Evaluation - Paxton Longoria MD - 02/05/2016 4:58 PM EDT [facility] [place] Anesthesiology Post-procedure Note Patient: Adama Ram Procedure Summary Date Anesthesia Start Anesthesia Stop Room / Location 02/05/16 0730 1141 [facility] OR [facility] MAIN OR Procedure Diagnosis Surgeon Responsible Provider EXC MALIGNANT LESION, 3.1 TO 4.0CM, FACE (Left Face); @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, TOTAL, WITH UNILATERAL RADICAL NECK DISSECTION (Left Neck) Skin cancer (skin cancer) Miguel Angel Moreno MD Bertrand, Marc L, MD All Anesthesia Providers: Anesthesiologist: Paxton Longoria MD Field Representative: Ronnell Sheriff MD Last (1hr) Vitals: BP Temp Pulse Resp SpO2 Patient Location: PACU/[facility] Level of Consciousness: Conscious but Sleepy Pain Management: Satisfactory Analgesia PONV: None Cardiovascular Status: At Baseline Respiratory Status: At Baseline Postoperative Fluid Status: Intravascular EUvolemia Possible Anesthetic Complications: NONE apparent at time of evaluation Final Primary Anesthesia Type: General (The anesthetic type performed was the same as planned.) Comments: * Anesthesia Preprocedure Evaluation - Paxton Longoria MD - 02/04/2016 7:07 PM EDT Images from the original note were not included. Pre-Anesthesia Evaluation for: Adama Ram a 55 y.o. male. Procedure(s): EXC MALIGNANT LESION, 3.1 TO 4.0CM, FACE EXC.PAROTID TUMOR OR GLAND, LATERAL LOBE Patient Active Problem List Diagnosis ??? Atopic rhinitis ??? Injury of head [...] UPPER EXTREMITY performed by SABRINA SANCHEZ at [facility] MAIN OR ? ? Pro exc skin malig >4cm trunk, arm, leg 04/19/2012 EXC MALIGNANT LESION, MICHAEL > 4.0CM, TRUNK performed by SABRINA SANCHEZ at [facility] MAIN OR ??? Pro vascular surgery procedure unlist Left 11/20/2015 LIGATION\REPAIR AV FISTULA performed by Camilo Ireland MD at [facility] MAIN OR ??? Pro vascular surgery procedure unlist Left 11/20/2015 EXCISION VEIN FROM HAND performed by Camilo Ireland MD at [facility] MAIN OR Social History Substance Use Topics [...] Pulmonary Assessment: pulmonary exam normal Dental Assessment: (+) upper dentures Misc Assessment: IV access: Peripheral line Other exam findings: PIV in situ right antecubital-runs well w/o complaint. Anesthesia Plan: ASA 3 general, with a(n) intravenous induction Adama Ram is a 55 y.o. 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 Moreno. Patient's documented history was negative for CVA, cardiac disease, hepatic disease or coagulopathy. There is no evidence of any recent URI symptoms, fevers/chills, or other signs of infection. Prior anesthetic history: No airway documentation on file. No problems with prior anesthetics. + Hxtracheostomy at age 19. Plan for GA with ETT; standard ASA monitoring. The patient was informed of the risks, benefits and alternatives of anesthesia. These risks included, but were not limited to, post-operative nausea and/or vomiting, pain, sore throat, dental/lip trauma, and other rare but serious complications such as major organ damage, awareness, severe allergicreactions, position-related nerve injuries, and need blood transfusions. All questions sought and answered. Consent was signed and placed in chart. Region - Other Informed Consent: Anesthetic plan and risks discussed with patient. Use of blood products discussed with who consented to blood products. PAT Staff Note documented in this encounter Plan of Treatment Not on file documented as of this encounter Visit Diagnoses Not on filedocumented in this encounter Administered Medications Inactive Administered Medications - up to 3 most recent administrations Medication Order MAR Action Action Date Dose Rate Site atropine injection PRN, Starting on Wed02/05/16 at 0813, Until Wed02/05/16 at 1141, Anesthesia Intra-op, Routine Given 02/05/2016 8:15 AM EDT 0.4 mg Given 02/05/2016 8:10 AM EDT 0.4 mg ceFAZolin (ANCEF) 2g in dextrose 5% 50 mL 2 g, Intravenous, ONCE, 1 dose, On Wed02/05/16 at 0800, Administer over 30 Minutes, Indication for (Active or Suspected): Prophylaxis Given 02/05/2016 8:23 AM EDT 2 g dexamethasone (DECADRON) injection PRN, Starting on Wed02/05/16 at 0923, Until Wed02/05/16 at 1141, Anesthesia Intra-op, Routine Given 02/05/2016 9:23 AM EDT 4 mg ePHEDrine 5 mg/mL multi-dose injection PRN, Starting on Wed02/05/16 at 0835, Until Wed02/05/16 at 1141, Anesthesia Intra-op, Routine Given 02/05/2016 11:11 AM EDT 5 mg Given 02/05/2016 11:05 AM EDT 5 mg Given 02/05/2016 10:58 AM EDT 5 mg fentaNYL 50 mcg/mL multi-dose injection PRN, Starting on Wed02/05/16 at 0758, Until Wed02/05/16 at 1141, Pain, Anesthesia Intra-op, Routine Given 02/05/2016 8:31 AM EDT 50 mcg Given 02/05/2016 7:58 AM EDT 50 mcg glycopyrrolate (ROBINUL) multi-dose injection PRN, Starting on Wed02/05/16 at 0806, Until Wed02/05/16 at 1141, Anesthesia Intra-op, Routine Given 02/05/2016 8:06 AM EDT 0.2 mg HYDROmorphone (DILAUDID) injection PRN, Starting on Wed02/05/16 at 0908, Until Wed02/05/16 at 1141, Pain, Anesthesia Intra-op, Routine Given 02/05/2016 9:44 AM EDT 0.6 mg Given 02/05/2016 9:08 AM EDT 0.6 mg midazolam (PF) (VERSED) 1 mg/mL multi-dose injection PRN, Starting on Wed02/05/16 at 0730, Until Wed02/05/16 at 1141, Sleep, Anesthesia Intra-op, Routine Given 02/05/2016 7:30 AM EDT 1 mg ondansetron (ZOFRAN) injection PRN, Starting on Wed02/05/16 at 1049, Until Wed02/05/16 at 1141, Nausea, Anesthesia Intra-op, Routine Given 02/05/2016 10:49 AM EDT 4 mg propofol (DIPRIVAN) 10 mg/mL bolus injection (Anesthesia) PRN, Starting on Wed02/05/16 at 0753, Until Wed02/05/16 at 1141, Anesthesia Intra-op Given 02/05/2016 10:07 AM EDT 10 mg Given 02/05/2016 9:52 AM EDT 10 mg Given 02/05/2016 9:50 AM EDT 10 mg sodium chloride 0.9% infusion 1,000 mL, at 100 mL/hr, Intravenous, CONTINUOUS, Starting on Wed02/05/16 at 0700, Until Wed02/05/16 at 1251, Day of Surgery (Day of Procedure) New Bag 02/05/2016 10:20 AM EDT succinylcholine (ANECTINE) injection PRN, Starting on Wed02/05/16 at 0753, Until Wed02/05/16 at 1141, Anesthesia Intra-op, Routine Given 02/05/2016 7:53 AM EDT 50 mg documented in this encounter Care Teams Sales Planning Manager Relationship Specialty Start Date End Date Carroll Fuentes DO [address] [place] [address] PCP - General 09/23/11 10/20/22 documented as of this encounter
--- OUTSIDE RECORDS SUMMARY | 2024-04-22 11:12 | XMS_ITS | Encounter Summary ---
Author Organization [facility] [place] [address] Care Team Providers Care News Production Supervisor Name Role Phone AlfredoCarroll allison Primary Care Provider Encounter Details Date Type Department Care Team (Latest Contact Info) Description 05/26/2016 7:50 PM EST - 05/26/2016 11:59 PM [facility] Hospital [place] [address] Discharge Disposition: Home Social History Tobacco Use [...] Date/Time Associated Diagnosis Comments TACROLIMUS LEVEL Routine 05/26/2016 2:55 PM EST documented in this encounter Results * Tacrolimus level (05/26/2016 2:55 PM EST) Tacrolimus 3.8 ng/mL [facility] Comment: Trough therapeutic: ??5-15 ng/mL Performed by ultra-performance liquid chromatography tandem mass spectrometry (UPLCMS/MS). Blood specimen (specimen) Venous Draw / Unknown 05/26/2016 2:55 PM EST 05/28/2016 7:37 AM EST Narrative Resulting Agency Comment Spec In Lab Anup Hawkins MD CHEMISTRY ORDERAB LES [facility] [place] [phone] documented in this encounter Visit Diagnoses Not on filedocumented in this encounter Care Teams News Production Supervisor Relationship Specialty Start Date End Date Carroll Fuentes DO [address] [place] [address] PCP - General 09/23/11 10/20/22 documented as of this encounter
--- OUTSIDE RECORDS SUMMARY | 2024-04-22 11:12 | XMS_ITS | Encounter Summary ---
[place] [address] Care Team Providers Care Qa Lead Name Role Phone Carroll Fuentes DO Primary Care Provider Reason for Visit * Reason Onset Date Comments Medication Refill 01/27/2016 Encounter Details Date Type Department Care Team (Late st Contact Info) Description 01/27/2016 Refill [place] [address] Tosha Castro, RN S/P kidney transplant Social [...] transplant documented in this encounter Care Teams Qa Lead Relationship Specialty Start Date End Date Carroll Fuentes DO [address] [place] [address] PCP - General 09/23/11 10/20/22 documented as of this encounter
--- OUTSIDE RECORDS SUMMARY | 2024-04-22 11:12 | XMS_ITS | Encounter Summary ---
[place] [address] Care Team Providers Care Clothes Model Name Role Phone Carroll Fuentes DO Primary Care Provider Reason for Visit * Reason Onset Date Comments Medication Refill 02/03/2016 Encounter Details Date Type Department Care Team (Late st Contact Info) Description 02/03/2016 Refill Solid [place] [address] Tosha Castro, RN S/P kidney transplant Social [...] transplant documented in this encounter Care Teams Clothes Model Relationship Specialty Start Date End Date Carroll Fuentes DO [address] [place] [address] PCP - General 09/23/11 10/20/22 documented as of this encounter
--- OUTSIDE RECORDS SUMMARY | 2024-04-22 11:12 | XMS_ITS | Encounter Summary ---
Author Organization [facility] Address [facility] [place] [address] Care Team Providers Care Software Developer Name Role Phone Carroll Fuentes DO Primary Care Provider [phone] Reason for Visit * Reason Comments Other wound check Encounter Details Date Type Department Care Team (Late st Contact Info) Description 02/27/2016 11:00 AM EDT Office Visit [place] [address] Mansoor Wells MD [facility] [place] [address] S/P split thickness skin graft; Wound drainage Social History Tobacco Use Types Packs/Day Years [...] Sign Reading Time Taken Comments Blood Pressure 110/78 02/27/2016 12:22 PM EDT Pulse 56 02/27/2016 12:22 PM EDT Temperature 36.3 ??C (97.3 ??F) 02/27/2016 12:22 PM E DT Respiratory Rate - - Oxygen Saturation - - Inhaled Oxygen Concentration - - Weight 72.6 kg (160 lb) 02/27/2016 12:22 PM EDT Height 177.8 cm (5' 10) 02/27/2016 12:22 PM EDT Body Mass Index 22.96 02/27/2016 12:22 PM EDT documented in this encounter Progress Notes * Paxton Cheng MD - 02/27/2016 11:00 AM EDT Progress Note Mr. 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 He presented to his PCP yesterday for a wound check and there was concern for infection as he was having drainage from the wound site. Upon inspection, the xeroform bolster has nearly fallen off. Underneath the outer 1 cm circumference of the skin graft appears to have healed down already. The inner area of the skin graft is still loose. No evidence of infection. Healthy appearing granulation tissue. The bolster was removed and replaced with a 5 x 9 xeroform dressing which was held in place with guaze and a facelift dressing. His left thigh donor site appears to be healing well. He is scheduled to follow up for a wound check next week. * Mansoor Wells MD - 02/27/2016 11:00 AM EDT ENT ATTENDING STAFF NOTE: I personally reviewed the above note including the documented history. I examined the patient, as well as reviewed personally all additional investigations. I agree with the outlined plan. Mansoor Wells MD documented in this encounter Miscellaneous Notes * Addendum Note - Mansoor Wells MD - 02/28/2016 6:16 PM EDTAddended by: MANSOOR WELLS on: 02/28/2016 06:16 PM Modules accepted: Level of Service * Addendum Note - Mansoor Wells MD - 02/27/2016 4:42 PM EDTAddended by: MANSOOR WELLS on: 02/27/2016 04:42 PM Modules accepted: Level of Service documented in this encounter Plan of Treatment Not on file documented as of this encounter Visit Diagnoses Diagnosis S/P split thickness skin graft Wound drainage Open wound(s) (multiple) of unspecified site(s), without mention of complication documented in this encounter Care Teams Software Developer Relationship Specialty Start Date End Date Carroll Fuentes DO [address] [place] [address] PCP - General 09/23/11 10/20/22 documented as of this encounter
--- OUTSIDE RECORDS SUMMARY | 2024-04-22 11:12 | XMS_ITS | Encounter Summary ---
Author Organization [facility] [address] Care Team Providers Care Emd Special Education Teacher Name Role Phone Carroll Fuentes DO Primary Care Provider Encounter Details Date Type Department Care Team (Late st Contact Info) Description 02/13/2016 Orders [place] [address] Miguel Angel Moreno MD [facility] [place] [address] Skin cancer; Surgical defect of skin Social History Tobacco Use Types Packs/Day Years [...] as of this encounter Visit Diagnoses Diagnosis Skin cancer Unspecified malignant neoplasm of skin, site unspecified Surgical defect of skin Disruption of external operation (surgical) wound documented in this encounter Care Teams Emd Special Education Teacher Relationship Specialty Start Date End Date Carroll Fuentes DO [address] [place] [address] [address] [place] [address] PCP - General 09/23/11 10/20/22 documented as of this encounter
--- OUTSIDE RECORDS SUMMARY | 2024-04-22 11:12 | XMS_ITS | Encounter Summary ---
Author Organization [facility] Address [facility] [place] [address] Care Team Providers Care Batch Plant Operator Name Role Phone AlfredoCarroll allison Primary Care Provider [phone] Encounter Details Date Type Department Care Team (Late st Contact Info) Description 02/26/2016 Telephone [place] [phone] Angelica Anna RN Social History Tobacco Use [...] Telephone Encounter - Angelica Anna RN - 02/26/2016 3:08 PM EDT Received a call today from ,PCP's office. She reports that came to the clinic today for a wound check. She reports purulent drainage from under the bolster on left cheek. She believes that he has an infection and thinks he should be seen tomorrow in our clinic. Left message for the patient to call back to schedule appointment. documented in this encounter Plan of Treatment Not on file documented as of this encounter Visit Diagnoses Not on filedocumented in this encounter Care Teams Batch Plant Operator Relationship Specialty Start Date End Date Carroll Fuentes DO [address] [place] [address] PCP - General 09/23/11 10/20/22 documented as of this encounter
--- OUTSIDE RECORDS SUMMARY | 2024-04-22 11:12 | XMS_ITS | Encounter Summary ---
Author Organization [facility] Address [facility] [place] [address] Care Team Providers Care Cad Draftsman Name Role Phone AlfredoCarroll allison Primary Care Provider [phone] Reason for Visit * Reason Comments Kidney Transplant Follow-up Immunotherapy Encounter Details Date Type Department Care Team (Latest Contact Info) Description 05/20/2016 9:30 AM EST Office Visit [place] [address] Anup Hawkins MD [facility] [place] [address] Kidney replaced by transplant; Aftercare following organ transplant; Prophylactic immunotherapy Social History Tobacco Use [...] Sign Reading Time Taken Comments Blood Pressure 104/74 05/20/2016 9:25 AM EST Pulse 55 05/20/2016 9:25 AM EST Temperature 36.3 ??C (97.4 ??F) 05/20/2016 9:25 AM ES T Respiratory Rate 12 05/20/2016 9:25 AM EST Oxygen Saturation 97% 05/20/2016 9:25 AM EST Inhaled Oxygen Concentration - - Weight 81.4 kg (179 lb 6.4 oz) 05/20/2016 9:25 A M EST Height - - Body Mass Index 25.74 02/27/2016 12:22 PM EDT documented in this encounter Progress Notes * William Montes De Oca, DO - 05/20/2016 9:30 AM EST [facility] Transplant Nephrology Follow Up Date: 05/20/16 Patient: Christy Ambrose Transplant Date: 11/26/02 Transplant organ/Indication: Kidney / IgA nephropathy, Prograf toxicity ?? Transplant ID: Mr. Christy Ambrose is a 55 y.o. male who is Status Post Kidney transplantation on 11/26/02. Post-op course was eventful delayed graft function, recurrent IgA nephropathy and Prograf toxicity, and adjustments in his anticonvulsants. Patient referred by Dr. Fuentes. Mr. Christy Ambrose presents to clinic for routine follow-up of care, patient is out (13 years) from Kidney transplantation. Had his left arm AVF taken down due to massive size, risk for high output CHF. 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 Developed pseudomonas infection 03/12/16 and treated with Ciprofloxacin (completed treatment). Seen by ENT Dr. Garcia 02/20/[address] Sage 05/04/16. Denies shortness of breath, lower ext edema. BP 110's at home. Gained 9 kg in p ast 3 months but recovered from dramatic weight loss. Healthcare maintenance for a transplant recipient: Immunizations [...] for diabetics, every 5 for non diabetics [place] kidney ultrasound looking for renal cell CA, every 5 years post transplant Bone density assessment every 9-12 years post transplant Annual fasting lipid profile Annual PTH-Vit D3 assessment until normalized Annual 24 hour timed urine for creatinine, protein, calcium, phosphate, magnesium ROS: Denies fevers, chills, nausea, vomiting, diarrhea, abd pain, chest pain, sob. All other review of systems were neither positive or negative Medications: Prior to Admission medications Medication Sig Start Date End Date Taking? Authorizing Provider multivitamin Capsule Take 1 capsule by mouth daily. Yes PROVIDER, HISTORICAL cholecalciferol, Vitamin D3, 50,000 unit Capsule Take by mouth. Yes PROVIDER, HISTORICAL PROGRAF 1 mg Capsule take 1 capsule by mouth twice a day 05/04/16 Yes Anup Hawkins MD mycophenolate (CELLCEPT) 250 mg Capsule Take 3 capsules by mouth 2 times daily. Kidney Transplant Z94.0. Transplant Date; 11-26-02 03/26/16 Yes Anup Hawkins MD levETIRAcetam (KEPPRA) 500 mg Tablet take 1 tablet by mouth every morning and 2 tablets by mouth every evening 02/13/16 Yes Jean Miles MD calciTRIol (ROCALTROL) 0.5 mcg Capsule Take 1 capsule by mouth daily. 02/12/16 02/11/17 Yes Anup Hawkins MD DILTiazem (DILTIAZEM CD) 120 mg Capsule, Sust. Release 24 hr take 1 capsule by mouth once daily 01/31/16 Yes Anup Hawkins MD allopurinol (ZYLOPRIM) 100 mg Tablet TAKE ONE AND A HALF TABLETS BY MOUTH ONCE DAILY 12/25/15 Yes Anup Hawkins MD losartan (COZAAR) 25 mg Tablet take 1 tablet by mouth once daily 12/12/15 Yes Anup Hawkins MD hydrALAZINE (APRESOLINE) 50 mg Tablet take 1 tablet by mouth twice a day 12/06/15 Yes Anup Hawkins MD warfarin (COUMADIN) 5 mg tablet Take 1 tablet (5 mg) by mouth on , and 1.5 tablets (7.5 mg)on all other days. Weekly dose = 50 mg. Take at the same time each day, preferably between 5:00 and6:00 PM. 01/11/14 Yes Anup Hawkins MD levothyroxine (SYNTHROID) 88 mcg tablet Take 88 mcg by mouth daily. Yes PROVIDER, HISTORICAL AMOXICILLIN TRIHYDRATE (TRIMOX ORAL) Take 2,000 mg by mouth. 1 hour Prior to dental procedures Yes PROVIDER, HISTORICAL metoprolol tartrate (LOPRESSOR) 50 mg tablet Take 50 mg by mouth 3 times daily. 12/03/10 Yes PROVIDER, HISTORICAL acetaminophen (TYLENOL) 500 mg Tablet Take 2 tablets by mouth every 8 hours. Patient not taking: Reported on 05/20/2016 02/06/16 Damián Richter MD Allergies / ADRs: Allergies Allergen Reactions ??? Benazepril Hcl ??? Codeine Other (See Comments) Patient does not know reaction ??? Hydrochlorothiazide ??? Pollen Extracts Sneezing/runny nose PHYSICAL EXAM: Vitals: 05/20/16 0925 BP: 104/74 Pulse: 55 Resp: 12 Temp: 36.3 ??C (97.4 ??F) Gen - AAO x 3 in NAD Skin - No exanthem. HEENT - Mucous membranes moist. Chest: Lungs clear to ausculatation w/o wheezes/ rhonchi/ crackles. Heart - S1 and S2 clear w/o murmur, gallop, or rub. JVP not elevated. Abd - Soft. + BS. No bruit. Non tender. No organomegaly. Ext - Warm. No cyanosis. No dependent edema. Labs/ Imaging: Results for CHRISTY AMBROSE ( ) as of 05/20/2016 14:57 Ref. Range 05/20/2016 08:54 WBC Latest Ref Range: 4.0 - 9.5 x10(3)/mcL 5.5 RBC Latest Ref Range: 4.58 - 5.54 x10(6)/mcL 3.46 (L) Hemoglobin Latest Ref Range: 13.7 - 16.5 gm/dL 10.1 (L) Hematocrit Latest Ref Range: 40.5 - 48.5 % 31.9 (L) MCV Latest Ref Range: 82.9 - 93.1 fL 92.2 MCH Latest Ref Range: 27.5 - 32.1 pg 29.2 MCHC Latest Ref Range: 32.0 - 35.7 gm/dL 31.7 (L) RDWSD Latest Ref Range: 36.0 - 45.0 fL 48.3 (H) RDWCV Latest Ref Range: 11.4 - 13.8 % 14.3 (H) Platelets Latest Ref Range: 145 - 357 x10(3)/mcL 184 MPV Latest Ref Range: 7.6 - 12.[address] % Latest Ref Range: 0.7 - 2.6 % 0.[address] Abs Latest Ref Range: 0.030 - 0.120 x10(6)/mcL 0.030 Immature Retic% Latest Ref Range: 0.0 - 15.6 % 6.1 Reticulated Hgb Latest Ref Range: 31.3 - 40.2 pg 33.0 nRBC % Auto Latest Units: % 0.0 nRBC Abs Auto Latest Ref Range: 0.000 - 0.000 x10(3)/mcL 0.000 Neutr Abs (ANC) Latest Ref Range: 1.70 - 6.10 x10(3)/mcL 4.08 Neutrophils % Latest Units: % 74.4 Immature Gran % Latest Units: % 0.20 Lymphocytes % Latest Units: % 14.8 Monocytes % Latest Units: % 8.2 Eosinophils % Latest Units: % 2.0 Basophils % Latest Units: % 0.4 Veronika Gran Abs Latest Ref Range: 0.00 [...] Latest Ref Range: 3.5 - 5.0 mmol/L 4.4 Chloride Latest Ref Range: 98 - 107 mmol/L 110 (H) CO2 Latest Ref Range: 22 - 31 mmol/L 17 (L) Anion Gap Latest Ref Range: 5 - 15 mmol/L 15 BUN Latest Ref Range: 10 - 20 mg/dL 50 (H) Creatinine Latest Ref Range: 0.80 - 1.50 mg/dL 2.13 (H) Estimated GFR Latest Ref Range: >=60 33 (L) Glucose Lvl Latest Ref Range: 65 - 199 mg/dL 68 Calcium Latest Ref Range: 8.5 - 10.5 mg/dL 8.8 Magnesium Latest Ref Range: 0.69 - 1.07 mmol/L 0.77 Phosphorus Latest Ref Range: 2.5 - 4.5 mg/dL 3.9 Uric Acid Latest Ref Range: 3.5 - 8.5 mg/dL 5.2 Total Protein Latest Ref Range: 6.1 - 8.0 gm/dL 6.8 Albumin Latest Ref Range: 3.2 - 5.2 gm/dL 4.5 Total Bilirubin Latest Ref Range: 0.2 - 1.3 mg/dL 0.4 Bili, Direct Latest Ref Range: 0.0 - 0.3 mg/dL 0.1 Alk Phos Latest Ref Range: 40 - 120 unit/L 103 AST Latest Ref Range: 0 - 39 unit/L 16 ALT Latest Ref Range: 0 - 55 unit/L 11 Chol, Total Latest Ref Range: <=199 mg/dL 131 Tacrolimus Lvl Latest Units: ng/mL 3.1 Impression/ Plan: Mr. Ambrose is a 55 yr old gentleman w/ hx of kidney transplant who presents to transplant clinic for f/u. 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 Increase fluid intake -Screening needed: Vision, Colonoscopy (next yr), Nuclear stress test, Ultrasound [facility] [place] [facility]. Given Prevnar 13 vaccine today. Immunosuppression -Prograf 1mg/1mg -Cellcept 750mg PO BID PO4/Mg -Phos 3.9. -Mag 0.77 Hypertension BP 110's at home -Continue Hydralazine, Diltiazem, Metoprolol, Losartan Follow up: RTC 6 months Seen and Discussed w/ Dr. Ross Montes De Oca, DO Pager #[phone] I reviewed all of the above findings and assessment of Dr. Montes De Oca, edited the above note to reflect my assessment and examination and formulated the recommendations which accurately reflect mine. documented in this encounter Plan of Treatment Not on file documented as of this encounter Results * (ABNORMAL) Comprehensive metabolic panel (non-fasting) (05/20/2016 8:54 AM EST) Glucose 68 65 - 199 mg/dL [facility] Comment:Diabetes: >=200 mg/d L plus symptoms Blood Urea Nitrogen 50(H) 10 - 20 mg/dL [facility] Creatinine 2.13(H) 0.80 - 1.50 mg/dL [facility] Comment: Please note that the pediatric reference intervals supplied above were not validated at [facility]. Results from pediatric patients should be interpreted in conjunction to the patient's age, height and muscle mass. Sodium 142 135 - 145 mmol/L [facility] Potassium 4.4 3.5 - 5.0 mmol/L [facility] Comment: Please note: ??Patients with WBC >100,000 may have falsely elevated Potassium levels. ??For accurate Potassium quantification in these patients send serum separator tube (gold top) for subsequent determinations. ??Contact the Clinical Chemistry Laboratory if there are any questions. Chloride 110(H) 98 - 107 mmol/L [facility] Carbon Dioxide 17(L) 22 - 31 mmol/L [facility] Anion Gap 15 5 - 15 mmol/L [facility] Calcium 8.8 8.5 - 10.5 mg/dL [facility] Protein, Total 6.8 6.1 - 8.0 gm/dL [facility] Albumin 4.5 3.2 - 5.2 gm/dL [facility] Aspartate Aminotransferase 16 0 - 39 unit/L [facility] Alanine Aminotransferase 11 0 - 55 unit/L [facility] Alkaline Phosphatase 103 40 - 120 unit/L [facility] Bilirubin, Total 0.4 0.2 - 1.3 mg/dL [facility] Bilirubin, Direct 0.1 0.0 - 0.3 mg/dL [facility] Est Glomerular Filtration Rate 33(L) >=60 [facility] Comment: This estimated [...] the following links into your internet browser. [email or web address] Blood specimen (specimen) 05/20/2016 8:54 AM EST 05/20/2016 9:08 AM EST Narrative Resulting Agency Comment Spec In Lab Anup Hawkins MD CHEMISTRY ORDERAB LES Performing Organization Address [facility] de Phone Number [facility] [place] [address] * Magnesium (05/20/2016 8:54 AM EST) Magnesium 0.77 0.69 - 1.07 mmol/L [facility] Blood specimen (specimen) 05/20/2016 8:54 AM EST 05/20/2016 9:08 AM EST Narrative Resulting Agency Comment Spec In Lab Anup Hawkins MD CHEMISTRY ORDERAB LES Performing Organization Address [facility] de Phone Number [facility] [place] [address] * Phosphorus (05/20/2016 8:54 AM EST) Phosphorus 3.9 2.5 - 4.5 mg/dL [facility] Blood specimen (specimen) 05/20/2016 8:54 AM EST 05/20/2016 9:08 AM EST Narrative Resulting Agency Comment Spec In Lab Anup Hawkins MD CHEMISTRY ORDERAB LES Performing Organization Address [facility] Co de Phone Number [facility] [place] [address] * Uric acid (05/20/2016 8:54 AM EST) Uric Acid 5.2 3.5 - 8.5 mg/dL [facility] Blood specimen (specimen) 05/20/2016 8:54 AM EST 05/20/2016 9:08 AM EST Narrative Resulting Agency Comment Spec In Lab Anup Hawkins MD CHEMISTRY ORDERAB LES Performing Organization Address [facility] Co de Phone Number [facility] [place] [address] * Tacrolimus level (05/20/2016 8:54 AM EST) Tacrolimus 3.1 ng/mL [facility] Comment: Trough therapeutic: ??5-15 ng/mL Performed by ultra-performance liquid chromatography tandem mass spectrometry (UPLCMS/MS). Blood specimen (specimen) 05/20/2016 8:54 AM EST 05/20/2016 11:29 AM EST Narrative Resulting Agency Comment Spec In Lab Anup Hawkins MD CHEMISTRY ORDERAB LES Performing Organization Address [facility] Co de Phone Number [facility] [place] [address] * Reticulocyte Count (05/20/2016 8:54 AM EST) Reticulocyte % 0.9 0.7 - 2.6 % [facility] Retic Abs # 0.030 0.030 - 0.120 x10(6)/mcL [facility] Immature Retic% 6.1 0.0 - 15.6 % [facility] Reticulated Hgb 33.0 31.3 - 40.2 pg [facility] Blood specimen (specimen) 05/20/2016 8:54 AM EST 05/20/2016 9:08 AM EST Narrative Resulting Agency Comment Spec In Lab Anup Hawkins MD HEMATOLOGY ORDERA BLES Performing Organization Address [facility] Co de Phone Number [facility] [place] [address] * Cholesterol, total (05/20/2016 8:54 AM EST) Cholesterol, Total 131 <=199 mg/dL [facility] Comment: Recommendations of the NCEP Adult Treatment Panel for the following risk cutoff thresholds for the [place] population: Desirable: <200 mg/dL Borderline High: 200-239 mg/dL High: > or = 240 mg/dL Blood specimen (specimen) 05/20/2016 8:54 AM EST 05/20/2016 9:08 AM EST Narrative Resulting Agency Comment Spec In Lab Anup Hawkins MD CHEMISTRY ORDERAB LES Performing Organization Address [facility] Co de Phone Number [facility] [place] [address] * (ABNORMAL) Protein/Creatinine Ratio, urine (05/20/2016 8:46 AM EST) Creatinine, Urine 97 mg/dL [facility] Protein, Urine 44(H) 0 - 12 mg/dL [facility] Protein / Creatinine Ratio, Urine 0.5 ratio [facility] Urine specimen (specimen) 05/20/2016 8:46 AM EST 05/20/2016 8:56 AM EST Narrative Resulting Agency Comment Spec In Lab Anup Hawkins MD URINE ORDERABLES Performing Organization Address [facility] Co de Phone Number [facility] [place] [address] * (ABNORMAL) Urinalysis with reflex Culture (05/20/2016 8:46 AM EST) Glucose, Urine Dipstick Negative Negative mg/dL [facility] Protein, Urine Dipstick 30(A) Negative mg/dL [facility] Bilirubin, Urine Dipstick Negative Negative mg/dL [facility] Comment: Clinical correlation required for positive Urine Bilirubin results as false positive may occur with some drugs and drug related products. If a false positive is suspected a serum total bilirubin should be considered if clinically indicated. Urobilinogen, Urine Dipstick Normal Normal mg/dL [facility] pH, Urn (dipstick) 5.0 5.0 - 8.0 [facility] Blood, Urine Dipstick Negative Negative mg/dL [facility] Ketone, Urine Dipstick Negative Negative mg/dL [facility] Nitrite, Urine Dipstick Negative Negative [facility] Leukocytes, Urine Dipstick Negative Negative [facility] Appearance, Urine Dipstick Clear Clear [facility] Specific [place] Urine Automated 1.016 1.002 - 1.030 [facility] Color, Urine Dipstick Yellow Yellow [facility] RBC, Urine Not Present 0 - 3 /HPF [facility] WBC, Urine <1 0 - 3 /HPF [facility] Squamous Epithelial Cells, Urine <1 <=4 /HPF [facility] Reflex to Culture No [facility] Urine specimen (specimen) 05/20/2016 8:46 AM EST 05/20/2016 8:55 AM EST Narrative Resulting Agency Comment Spec In Lab Anup Hawkins MD URINE ORDERABLES Performing Organization Address City/State/[facility] Co de Phone Number [facility] [place] [address] documented in this encounter Visit Diagnoses Diagnosis Kidney replaced by transplant Aftercare following organ transplant Prophylactic immunotherapy Need for prophylactic immunotherapy documented in this encounter Care Teams Cad Draftsman Relationship Specialty Start Date End Date Carroll Fuentes DO [address] [place] [address] PCP - General 09/23/11 10/20/22 documented as of this encounter
--- OUTSIDE RECORDS SUMMARY | 2024-04-22 11:12 | XMS_ITS | Encounter Summary ---
Author Organization [facility] Address [facility] [place] [address] Care Team Providers Care Basting Cleaner Name Role Phone AlfredoSebastian geiger Primary Care Provider [phone] Reason for Visit * Auth/Cert Specialty Diagnoses / Procedures Referred By Shashi ko Referred To Contact Diagnoses skin cancer Procedures PRO EXC SKIN MALIG 3.1-4CM FACE, FACIAL PRO EXC PAROTD, LAT LOBE, DISSECT 5TH NERV EXC MALIGNANT LESION, 3.1 TO 4.0CM, FACE EXC.PAROTID TUMOR OR GLAND, LATERAL LOBE Referral ID Status Reason Start Date Expiration Date Visits Re quested Visits Authorized [id number] 1 1 Encounter Details Date Type Department Care Team (Latest Contact Info) Description 02/05/2016 6:14 AM EDT - 02/06/2016 11:33 AM EDT Hospital Encounter [place] [address] Miguel Angel Moreno MD [facility] [place] [address] Anticoagulated on Coumadin; Skin cancer Discharge Disposition: Home Social History Tobacco Use [...] Sign Reading Time Taken Comments Blood Pressure 133/91 02/06/2016 7:50 AM EDT Pulse 70 02/06/2016 7:50 AM EDT Temperature 37.1 ??C (98.8 ??F) 02/06/2016 7:50 AM ED T Respiratory Rate 17 02/06/2016 7:50 AM EDT Oxygen Saturation 98% 02/06/2016 7:50 AM EDT Inhaled Oxygen Concentration - - Weight 75.3 kg (166 lb) 02/05/2016 6:41 AM EDT Height 177.8 cm (5' 10) 02/05/2016 3:46 PM EDT Body Mass Index 23.82 02/05/2016 6:41 AM [...] -You can reach the ENT clinic at [phone] for appointment questions. -The ENT triage nurse is available at [phone] -For urgent issues during evenings and weekends the ENT resident superintendent institution can be reached through [facility] dump truck operator at [phone] Follow Up: You will need to follow up. Please see the appointments below. Currently Scheduled Appointments and VNA instructions: Future Appointments and Orders Future Appointments Provider Department Dept Phone 02/20/2016 1:30 PM Portillo Lujan PA Otolaryngology [phone] 03/03/2016 10:45 AM Bashir Benitez MD Dermatology at [place] [phone] 03/09/2016 1:30 PM Alexander Sage MD Dermatology at [facility] [phone] 05/20/2016 8:30 AM LISA GODOY [facility] Lab 3L [phone] 05/20/2016 9:30 AM Anup Hawkins MD Transplant [phone] 11/25/2016 10:30 AM LAB, [facility] Lab 3L [phone] 11/25/2016 11:30 AM Anup Hawkins MD Transplant [phone] Future Orders Complete By Expires Full code [...] __ Primary Care Doctor: SEBASTIAN FUENTES DO [phone] Signed: Damián Richter MD 02/06/2016 documented in [...] -You can reach the ENT clinic at [phone] for appointment questions. -The ENT triage nurse is available at [phone] -For urgent issues during evenings and weekends the ENT resident superintendent institution can be reached through [facility] at [phone] Follow Up: You will need to follow up. Please see the appointments below. Currently Scheduled Appointments and VNA instructions: Future Appointments and Orders Future Appointments Provider Department Dept Phone 02/20/2016 1:30 PM Portillo Lujan PA Otolaryngology [phone] 03/03/2016 10:45 AM Bashir Benitez MD Dermatology at [place] [phone] 03/09/2016 1:30 PM Alexander Sage MD Dermatology at [facility] [phone] 05/20/2016 8:30 AM [facility] Lab 05/20/2016 9:30 AM Anup Hawkins MD Transplant [phone] 11/25/2016 10:30 AM LAB [facility] Lab 11/25/2016 11:30 AM Anup Hawkins MD Transplant [phone] Future Orders Complete By Expires Full code [...] NECK SURGERY POST OP CHECK Name: Adama Chacko Leanna Age/Sex: 55 y.o. male Attending: Miguel Angel [...] 4.8 Imaging No post-imaging ASSESSMENT & PLAN Adamamaty Ram is a 55 y.o. male s/p Procedure(s): EXC MALIGNANT LESION, 3.1 TO 4.0CM, FACE @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, TOTAL, WITH UNILATERAL RADICAL NECK DISSECTION. Patient is doing well postoperatively. Straight cath protocol ordered. Continue with current care plan. __ Damián Richter MD, PGY1 02/05/16 6:17 PM Pager: [phone] * Cassie Sarmiento RN - 02/05/2016 2:01 [...] Care Goal: Plan of Care Review 02/05/16 3251 Plan of Care Review Plan of Care [...] Fall Prevention-Safe Patient Handling 02/05/16 1552 02/05/16 [id number] Safety Interventions Safety Precautions/Fall Reduction fall reduction [...] Moreno MD - 02/05/2016 2:17 PM EDT [facility] Operative Note Patient Name: Adama Ram : [id number] MR#: [id number] Case Date: 02/05/2016 Surgeon: Surgeon(s) and Role: [...] Procedure Name Priority Date/Time Associated Diagnosis Comments EDUCATIONAL MANAGER SCAN 02/09/2016 12:00 AM EDT ECG SCAN [...] in this encounter Results * SCAN DOC: EDUCATIONAL MANAGER (02/09/2016 12:00 AM EDT) Anatomical Region Laterality Modality Other Scanning Provider MEDIA MGR SCAN EXT O RDR/RSLT * SCAN DOC: ECG (02/06/2016 12:00 AM EDT) Scanning Provider MEDIA MGR SCAN EXT O RDR/RSLT * Specimen to Pathology (surgical or derm) (02/05/2016 10:44 AM EDT) AP Specimen 02/05/2016 10:4 4 AM EDT 02/05/2016 10:44 AM EDT Narrative [facility] - 02/05/2016 10:44 AM EDT Specimen requisition ordered. ??Separate Pathology report to follow Miguel Angel Moreno MD PATHOLOGY/CYTOLOGY ORDERABLES Performing Organization Address [facility] [place] [address] * Specimen to Pathology (surgical or derm) (02/05/2016 10:26 AM EDT) AP Specimen 02/05/2016 10:2 6 AM EDT 02/05/2016 10:26 AM EDT [facility] - 02/05/2016 10:26 AM EDT Specimen requisition ordered. ??Separate Pathology report to follow Miguel Angel Moreno MD PATHOLOGY/CYTOLOGY ORDERABLES Performing Organization Address [facility] [place] [address] * Specimen to Pathology (surgical or derm) (02/05/2016 10:20 AM EDT) AP Specimen 02/05/2016 10:2 0 AM EDT 02/05/2016 10:20 AM EDT [facility] - 02/05/2016 10:20 AM EDT Specimen requisition ordered. ??Separate Pathology report to follow Miguel Angel Moreno MD PATHOLOGY/CYTOLOGY ORDERABLES Performing Organization Address [facility] [place] [address] * Surgical Pathology Report (02/05/2016 10:19 AM EDT) Final Diagnosis [id number] ? Location: SSU; 14; A The signing pathologist has (i) examined [...] (R 11) ??njo 02/10/2016 9:56 AM EDT [facility] PAROTID GLAND STRUCTURE / Unknown 02/05/2016 10:19 AM EDT 02/05/2016 10:19 AM EDT BIOPSY SPECIMEN / Unknown 02/05/2016 10:19 AM EDT 02/05/2016 10:19 AM EDT PAROTID GLAND STRUCTURE / Unknown 02/05/2016 10:19 AM EDT 02/05/2016 10:19 AM EDT Miguel Angel Moreno MD PATHOLOGY/CYTOLOGY ORDERABLES Performing Organization Address [facility] Co de Phone Number [facility] [place] [address] * Potassium (02/05/2016 6:29 AM EDT) Potassium 4.8 3.5 - 5.0 mmol/L [facility] Comment: Please note: ??Patients with [...] Longoria MD CHEMISTRY ORDERABLES Performing Organization Address [facility] Co de Phone Number [facility] [place] [address] * Prothrombin Time (02/05/2016 6:29 AM EDT) Prothrombin Time 14.9 12.0 - 15.0 sec [facility] Comment: An INR <2.0 indicates [...] International Normalization Ratio 1.1 0.9 - 1.1 [facility] Blood specimen (specimen) 02/05/2016 6:29 AM EDT 02/05/2016 6:38 AM EDT Narrative Resulting Agency Comment Spec In Lab Miguel Angel Moreno MD HEMATOLOGY ORDERAB LES [facility] [place] [address] documented in this encounter Visit Diagnoses Diagnosis Anticoagulated on Coumadin Encounter for therapeutic drug monitoring Skin cancer Unspecified malignant neoplasm of skin, site unspecified Squamous cell carcinoma of skin of other parts of face documented in this encounter Admitting Diagnoses Diagnosis [...] per 24 hours. Begin oral analgesics when FIELD ARTILLERY SENIOR SERGEANT is discontinued., Routine Given 02/06/2016 6:59 AM [...] AM EDT 1,000 mLs 100 m L/hr 02/05/2016 9:25 PM EDT 1,000 mLs 100 mL/hr 02/05/2016 1:02 PM EDT 1,000 mLs 100 mL/hr DILTiazem (DILTIAZEM CD) ER capsule 120 mg 120 mg, Oral, DAILY, First dose on Wed02/06/16 at 0900, Until Discontinued, DO NOT CRUSH OR OPEN, Routine Given 02/06/2016 9:16 AM EDT 120 mg hydrALAZINE (APRESOLINE) tablet 50 mg 50 [...] 1251, Day of Surgery (Day of Procedure) [facility] 02/05/2016 7:18 AM EDT 1,000 mLs 100 [...] Given 02/05/2016 7:18 AM EDT 3 mg losartan (COZAAR) tablet 25 mg 25 [...] Given 02/05/2016 10:49 PM EDT 1 mg documented in this encounter Active and Recently Administered Medications Times are shown in EDT. Scheduled Medication Order 02/04/2016 02/05/2016 02/06/2016 acetaminophen (TYLENOL) tablet 1,000 mg 1,000 mg, Oral, EVERY 8 HOURS, First dose on Wed02/05/16 at 1430, Until Discontinued, Not to exceed 4,000 mg acetaminophen from all sources per 24 hours. Begin oral analgesics when FIELD ARTILLERY SENIOR SERGEANT is discontinued., Routine 1546 (Given - Provider: Cassie Sarmiento RN)2251 (Given - Provider: Fátima Carroll RN) 0659 (Given - Provider: Fátima Carroll RN) allopurinol (ZYLOPRIM) tablet 150 mg 150 mg, Oral, DAILY, First dose on Wed02/06/16 at 0900, Until Discontinued, Routine 0916 (Given - Provid er: Kane Farrell RN) amoxicillin-clavulanate (AUGMENTIN) 875-125 mg per tablet 1 tablet 1 tablet, Oral, 2 TIMES DAILY, First dose on Wed02/05/16 at 1700, Until Discontinued, Routine, Indication for (Active or Suspected): Prophylaxis 172 (Given - Provider: Cassie Sarmiento RN) 0916 (Given - Provider: Kane Farrell RN) ceFAZolin (ANCEF) 2g in dextrose 5% 50 mL (COMPLETED) 2 g, Intravenous, ONCE, 1 dose, On Wed02/05/16 at 0800, Administer over 30 Minutes, Indication for (Active or Suspected): Prophylaxis 0823 (Given - Provider: Ronnell Sheriff MD) DILTiazem (DILTIAZEM CD) ER capsule 120 mg 120 mg, Oral, DAILY, First dose on Wed02/06/16 at 0900, Until Discontinued, DO NOT CRUSH OR OPEN, Routine 0916 (Given - Provid er: Kane Farrell RN) hydrALAZINE (APRESOLINE) tablet 50 mg 50 mg, Oral, 2 TIMES DAILY, First dose on Wed02/05/16 at 2100, Until Discontinued, Take with Food, Routine 211 (Given - Provider: Fátima Carroll RN) 0917 (Given - Provider: Kane Farrell RN) levETIRAcetam [...] on Wed02/06/16 at 0600, Until Discontinued, Routine 0658 (Given - Provid er: Fátima Carroll RN) losartan (COZAAR) tablet 25 mg 25 mg, Oral, DAILY, First dose on Wed02/06/16 at 0900, Until Discontinued, Routine 09 (Given - Provid er: Kane Farrell RN) meTOPROLOL tartrate (LOPRESSOR) tablet 50 mg 50 mg, Oral, 3 TIMES DAILY, First dose on Wed02/05/16 at 2100, Until Discontinued, Routine 2100 (Not Given - Provider: Fátima Carroll RN - Reason: See comment) 0918 (Given - Provider: Kane Farrell RN) mycophenolate [...] SAVANNA) 0703 (New Bag - Provider: Fátima Carroll, SAVANNA) lactated ringers infusion 1,000 mL (CANCELED) 1,000 [...] Until Wed02/06/16 at 1333, Intra-Operative (Intra-Procedure), Routine 1052 (Given - Provider: Jos Moreno MD) lidocaine (XYLOCAINE) 10 mg/mL (1 %) injection 3 mg (COMPLETED) 3 mg (0.3 mL), Subcutaneous, ONCE PRN, 1 dose, Starting on Wed02/05/16 at 0633, Until Wed02/05/16 at 0718, for discomfort with PIV insertion, Day of Surgery (Day of Procedure), Routine 07 (Given - Provider: Regino Swan RN) lidocaine [...] first. documented in this encounter Care Teams Basting Cleaner Relationship Specialty Start Date End Date Sebastian Fuentes DO [address] [place] [address] PCP - General 09/23/11 10/20/22 documented as of this encounter
--- OUTSIDE RECORDS SUMMARY | 2024-04-22 11:12 | XMS_ITS | Encounter Summary ---
[place] [address] Care Team Providers Care Drilling Plant Operator Name Role Phone AlfredoCarroll allison Primary Care Provider Encounter Details Date Type Department Care Team (Late st Contact Info) Description 02/28/2016 Telephone [place] [id number] Tosin David RN Social History Tobacco Use Types Packs/Day [...] as of this encounter Miscellaneous Notes * Addendum Note - Tosin David RN - 02/28/2016 4:28 PM EDTAddended by: TOSIN DAVID on: 02/28/2016 04:28 PM Modules accepted: Orders * Addendum Note - Tosin David RN - 02/28/2016 4:22 PM EDTAddended by: TOSIN DAVID on: 02/28/2016 04:22 PM Modules accepted: Orders * Telephone Encounter - Tosin David RN - 02/28/2016 3:47 PM EDT Received a call from , from PCP's office. Reports that a culture was taken of the drainage from the patients left cheek on Wednesday before coming here yesterday for evaluation. Noted to be growing Pseudomonas sensitive to Cipro. I have asked that the culture results be faxed to our office. Discussed with Dr. Wells who suggests that we prescribe Cipro 500 mg BID x 7days. documented in this encounter Plan of Treatment Not on file documented as of this encounter Visit Diagnoses Not on filedocumented in this encounter Care Teams Drilling Plant Operator Relationship Specialty Start Date End Date Carroll Fuentes DO [address] [place] [address] [address] [place] [address] PCP - General 09/23/11 10/20/22 documented as of this encounter
--- OUTSIDE RECORDS SUMMARY | 2024-04-22 11:12 | XMS_ITS | Encounter Summary ---
Author Organization [facility] Address [facility] [place] [address] Care Team Providers Care Gold Leaf Roller Name Role Phone Carroll Fuentes DO Primary Care Provider [phone] Reason for Visit * Reason Comments Medication Refill Encounter Details Date Type Department Care Team (Late st Contact Info) Description 01/31/2016 Refill [place] [address] Anup Hawkins MD [facility] [place] [address] Social History Tobacco Use Types Packs/Day Years [...] on filedocumented in this encounter Care Teams Gold Leaf Roller Relationship Specialty Start Date End Date Carroll Fuentes DO [address] [place] [address] PCP - General 3/14/12 4/11/23 documented as of this encounter
--- OUTSIDE RECORDS SUMMARY | 2024-04-22 11:13 | XMS_ITS | Encounter Summary ---
[place] [address] Care Team Providers Care Metal Bonder Name Role Phone Carroll Fuentes DO Primary Care Provider [phone] Reason for Visit * Reason Onset Date Comments Medication Refill 12/13/2014 Encounter Details Date Type Department Care Team (Late st Contact Info) Description 12/13/2014 Refill [place] [phone] Autumn Burgos, RN High level of uric acid in blood Social History Tobacco Use Types Packs/Day Years Used Date Smoking Tobacco: Former Cigarettes Q uit: 12/03/2000 Smokeless Tobacco: Former Quit: 04/14/2001 Alcohol [...] chemistry documented in this encounter Care Teams Metal Bonder Relationship Specialty Start Date End Date Carroll Fuentes DO [address] [place] [address] PCP - General 09/23/11 10/20/22 documented as of this encounter
--- OUTSIDE RECORDS SUMMARY | 2024-04-22 11:13 | XMS_ITS | Encounter Summary ---
Author Organization [facility] Address [facility] [place] [address] Care Team Providers Care Link Trainer Maintenance Worker Name Role Phone Carroll Fuentes DO Primary Care Provider [phone] Reason for Visit * Reason Comments Mass LT side neck mass, x 20months, swelling Encounter Details Date Type Department Care Team (Late st Contact Info) Description 12/03/2015 12:40 PM EDT Office [place] [address] Miguel Angel Moreno MD [facility] [place] [address] Skin lesion; Lesion of throat Social History Tobacco Use Types Packs/Day Years [...] as of this encounter Progress Notes * Migule Angel Moreno MD - 12/06/2015 12:25 PM EDT I was asked to see Adama Leanna in consultation by Dr. Alfonzo Miles for a concerning lesion in the left face. This is a very pleasant 55-year-old gentleman with [...] cancer of the skin involving his right shoulder region, which had been excised back in 2012. He reports that the lesion in his left cheek and jaw region is painful. Originally, he had been treating it with salicylic acid and an antibiotic ointment, but without improvement. Past medical/surgical history, medications, allergies, family history, and social history were all reviewed and updated in the electronic medical record. Review of systems inquiry on 10-point review, other than stated above, is otherwise negative. The patient denies any facial weakness, any restriction in neck range of motion, and no ear complaints. On examination, he is a pleasant well developed male in no acute distress. Head and face examination is significant for the lesion in question, which is along the left cheek region and angle of mandible extending down onto the neck and extended postauricularly and infraauricularly, but not involving the ear itself, and not extending into the ear canal. Facial nerve function is intact. The remainder of his head and neck examination is unremarkable. Procedure: Punch biopsy of skin lesion was performed in the office today. Informed verbal consent was obtained and a time out was performed. A nodular area in the middle of the area of the skin lesion was identified. Injected with 1% Xylocaine with 1:200,000 epinephrine and a punch biopsy using a 3-mm punch was then obtained. Was performed and submitted to pathology for primary analysis. A 5-0 plain gut suture was then used to close the punch biopsy. The patient tolerated the procedure well with no complications. 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 Biopsy was performed today to confirm. Treatment would require wide excision, possibly delayed reconstruction, which would entail either a local advancement flap or a skin graft. He did have a CT scan today, which I also reviewed, which does not demonstrate any concerning adenopathy, but does demonstrate the skin lesion in question without any significant deeper involvement of the parotid or other soft tissues. This was a non-contrasted CT due to his kidney function. There is some questionable concern whether there is some extension into the parotid. It is not clear based on the CT. The patient was also noted on CT to have a questionable abnormality in the region of the right vallecula. For this reason, a flexible laryngoscopy was also performed. Nasal cavity was topically anesthetized in the usual fashion. A flexible fiberoptic scope was used for the evaluation. A normal exam of the nasal cavity, nasopharynx was noted. Oropharynx, hypopharynx, and larynx were also noted. The lesion in the vallecula was essentially the position of his lingual tonsil, which was relatively symmetric with no concerning areas seen on examination. He does have a smoking history and it would be at high risk for developing a malignancy of the larynx or pharynx. I will follow up with the patient once we have the biopsy results and further recommendations can be made at that time. documented in this encounter Plan of Treatment Not on file documented as of this encounter Procedures Procedure Name Priority Date/Time Associated Diagnosis Comments SURGICAL PATHOLOGY REPORT Routine 12/03/2015 1:32 PM EDT documented in this encounter Results * Surgical Pathology Report (12/03/2015 1:32 PM EDT) Final Diagnosis [id number] ?Location: The signing pathologist has (i) examined the relevant preparation(s) for the specimen(s) and (ii) rendered or confirmed the diagnosis(es). . ?Surgical Pathology DIAGNOSIS Skin, left facial, biopsy: Invasive squamous cell carcinoma, poorly differentiated and basaloid, with infiltrating growth pattern, extending to the peripheral and deep specimen edges (see discussion). 12/04/15 DLD 12/06/15 Verified by: ? Kev JONES, PhD, [place] ?Dermatopathologist ?(Electronic Signature) The attending pathologist whose signature appears on this report has reviewed all diagnostic slides and has edited the gross and/or microscopic portion of the report in rendering the final pathologic diagnosis. DISCUSSION The biopsy shows a basaloid and ?? poorly differentiated carcinoma. Immunostains for adipophilin and synaptophysin are negative. Tumor cells are diffusely positive for BETTY and focally positive for Kurt-EP4. 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 Dr. Izaguirre has reviewed this case and concurs with this diagnosis. ADDITIONAL STUDIES Multiple step-leveled sections are reviewed. Immunohistochemistry Studies: Formalin-fixed, paraffin-embedded tissue sections are [...] diagnostic tests. Block ? Antibody ?Result (Positive/Negative) A1 ?BETTY ? Positive ??Kurt-EP4 ??Positive ??Adipophilin ??Negative ??Synaptophysin ??Negative CLINICAL INFORMATION Specimen Submitted: A - Skin, left facial lesion, biopsy, (1) Clinical History: Several month history of left facial lesion, painful Clinical Diagnosis: SCCA versus BCCA SPECIMEN PROCESSING A - Labeled/Fixative: Patient demographics, formalin. . SPECIMEN PROCESSING Quantity/Size: Two, averaging 0.5 cm. Tissue Description: Rubbery, granular pink-smith tissues. Sections/Processing: The specimen is bisected and separately submitted. (T2) ??ejr 12/06/2015 3:00 PM EDT [facility] SPECIMEN FROM SKIN / Unknown 12/03/2015 1:32 PM EDT 12/03/2015 1:32 PM EDT Miguel Angel Moreno MD PATHOLOGY/CYTOLOGY ORDERABLES [facility] [place] [address] documented in this encounter Visit Diagnoses Diagnosis Skin lesion Unspecified disorder of skin and subcutaneous tissue Lesion of throat Unspecified disease of pharynx documented in this encounter Care Teams Link Trainer Maintenance Worker Relationship Specialty Start Date End Date Carroll Fuentes DO [address] [place] [address] PCP - General 09/23/11 10/20/22 documented as of this encounter
--- OUTSIDE RECORDS SUMMARY | 2024-04-22 11:13 | XMS_ITS | Encounter Summary ---
Author Organization [facility] Address [facility] [place] [address] Care Team Providers Care Multifold Operator Name Role Phone AlfredoCarroll allison Primary Care Provider [phone] Encounter Details Date Type Department Care Team (Late st Contact Info) Description 11/13/2015 Telephone [place] [phone] Tosha Castro, RN Social History Tobacco Use Types Packs/Day [...] encounter Miscellaneous Notes * Telephone Encounter - Tosha Castro, RN - 11/13/2015 10:43 AM EDT Reviewed pt's recent lab work which indicated a low calcium level of 7.6. Per Dr. Hernandez, he isto increase his Calcitriol to 0.25mcg daily to 0.5mcg daily. Talked to Adama about doubling the capsules he has now, and that we will be sending a new prescription for 0.5mcg capsules to his local pharmacy and he only needs ONE after he gets his new script. He understands. Pt stated understanding of plan of care. No further questions at this time. Advised to call with additional concerns. Tosha Castro, RN [facility] [place]plant [phone] (Pager: [phone]) documented in this encounter Plan of Treatment Not on file documented as of this encounter Visit Diagnoses Not on filedocumented in this encounter Care Teams Multifold Operator Relationship Specialty Start Date End Date Carroll Fuentes DO [address] [place] [address] [address] [facility] [address] [place] [address] PCP - General 09/23/11 10/20/22 documented as of this encounter
--- OUTSIDE RECORDS SUMMARY | 2024-04-22 11:13 | XMS_ITS | Encounter Summary ---
[place] [address] Care Team Providers Care Contract Programmer Name Role Phone Carroll Fuentes DO Primary Care Provider Encounter Details Date Type Department Care Team (Late st Contact Info) Description 11/08/2015 Orders Only [place] [address] Tosha Castro, RN H/O kidney transplant Social [...] transplant documented in this encounter Care Teams Contract Programmer Relationship Specialty Start Date End Date Carroll Fuentes DO [address] [place] [address] PCP - General 09/23/11 10/20/22 documented as of this encounter
--- OUTSIDE RECORDS SUMMARY | 2024-04-22 11:13 | XMS_ITS | Encounter Summary ---
Author Organization [facility] Address [facility] [place] [address] Care Team Providers Care Playground Monitor Name Role Phone AlfredoCarroll allison Primary Care Provider [phone] Encounter Details Date Type Department Care Team (Latest Contact Info) Description 04/22/2015 8:18 PM EDT - 04/22/2015 11:59 PM EDT Hospital [place] [address] Discharge Disposition: Home Social History Tobacco Use [...] by mouth 2 times daily. Kidney Transplant V42.0. Transplant Date; 11-26-02 180 capsule 4 04/02/2015 01/24/2016 PROGRAF 1 mg Capsule Take 1 capsule by mouth 2 times daily. 60 capsule 10 03/08/2015 09/13/2015 losartan (COZAAR) 25 mg Tablet take 1 tablet by mouth once daily 90 tablet 3 12/24/2014 12/12/2015 allopurinol (ZYLOPRIM) 100 mg TabletIndications:gou t Take 1.5 tablets by mouth daily. Indications: Gout 45 tablet 11 12/13/2014 07/10/2015 calcium acetate (PHOSLO) 667 mg Capsule Take 1 capsule by mouth 3 times daily (with meals). 90 capsule 11 11/28/2014 11/28/2015 calciTRIol (ROCALTROL) 0.25 mcg Capsule Take 2 capsules by mouth daily. 60 tablet 3 11/28/2014 11/13/2015 DILTiazem (DILACOR XR) 120 mg Capsule, Sust. Release 24 hr take 1 capsule by mouth once daily 90 capsule 3 11/26/2014 01/31/2016 hydrALAZINE (APRESOLINE) 50 mg Tablet take 1 tablet by mouth twice a day 180 tablet 2 11/26/2014 09/03/2015 levETIRAcetam (KEPPRA) 500 mg Tablet Take 1 pill in AM and 2 pills in PM 90 tablet 5 06/12/2014 06/25/2015 warfarin (COUMADIN) 5 mg tablet Take 1 [...] Date/Time Associated Diagnosis Comments TACROLIMUS LEVEL Routine 04/22/2015 10:0 0 AM EDT documented in this encounter Results * Tacrolimus level (04/22/2015 10:00 AM EDT) Pathologist [facility] Tacrolimus 3.3 ng/mL [facility] Comment:Trough therapeutic: 5-15 ng/mL Blood specimen (specimen) Venous Draw / Unknown 04/22/2015 10:00 AM EDT 04/23/2015 8:05 AM EDT Narrative Resulting Agency Comment Spec In Lab Anup Hawkins MD CHEMISTRY ORDERAB LES Performing Organization Address City/State/[facility] Co de Phone Number [facility] documented in this encounter Visit Diagnoses Not on filedocumented in this encounter Care Teams Playground Monitor Relationship Specialty Start Date End Date Carroll Fuentes DO [address] [place] [address] [address] [place] [address] PCP - General 09/23/11 10/20/22 documented as of this encounter
--- OUTSIDE RECORDS SUMMARY | 2024-04-22 11:13 | XMS_ITS | Encounter Summary ---
Author Organization [facility] Address [facility] [place] [address] Care Team Providers Care Parking Meter Attendant Name Role Phone Carroll Fuentes DO Primary Care Provider [phone] Reason for Visit * Reason Comments Medication Refill Encounter Details Date Type Department Care Team (Late st Contact Info) Description 12/12/2015 Refill [place] [address] Anup Hawkins MD [facility] [place] [address] Social History Tobacco Use Types Packs/Day Years [...] on filedocumented in this encounter Care Teams Parking Meter Attendant Relationship Specialty Start Date End Date Carroll Fuentes DO [address] [place] [address] PCP - General 3/14/12 4/11/23 documented as of this encounter
--- OUTSIDE RECORDS SUMMARY | 2024-04-22 11:13 | XMS_ITS | Encounter Summary ---
[place] [address] Care Team Providers Care Import Export Clerk Name Role Phone Carroll Fuentes DO Primary Care Provider [phone] Encounter Details Date Type Department Care Team (Late st Contact Info) Description 11/07/2015 Orders Only [place] [address] Tosha Castro, RN H/O kidney transplant Social [...] transplant documented in this encounter Care Teams Import Export Clerk Relationship Specialty Start Date End Date Carroll Fuentes DO [address] [place] [address] PCP - General 09/23/11 10/20/22 documented as of this encounter
--- OUTSIDE RECORDS SUMMARY | 2024-04-22 11:13 | XMS_ITS | Encounter Summary ---
Author Organization [facility] Address [facility] [place] [address] Care Team Providers Care Iron Molder Helper Name Role Phone AlfredoCarroll allison Primary Care Provider [phone] Reason for Visit * Reason Comments Kidney Transplant Follow-up Immunotherapy Encounter Details Date Type Department Care Team (Late st Contact Info) Description 12/03/2015 12:00 PM EDT Office Visit Solid [place] [address] Anup Hawkins MD [facility] [address] TRANSPLANT [place] [address] Kidney replaced by transplant; Healthcare maintenance; Need for prophylactic immunotherapy; Anemia of chronic renal failure, stage 3 (moderate) Social History Tobacco Use Types Packs/Day Years [...] Sign Reading Time Taken Comments Blood Pressure 100/74 12/03/2015 1:57 PM EDT Pulse 60 12/03/2015 1:57 PM EDT Temperature - - Respiratory Rate - - Oxygen Saturation - - Inhaled Oxygen Concentration - - Weight 82.1 kg (181 lb) 12/03/2015 1:57 PM EDT Height 177.8 cm (5' 10) 12/03/2015 1:57 PM EDT Body Mass Index 25.97 12/03/2015 1:57 PM EDT documented in this encounter Progress Notes * Anup Hawkins MD - 12/03/2015 7:30 PM EDT [facility] Transplant Nephrology Follow Up Date: 12/03/15 Patient: Christy Ambrose Transplant Date: 11/26/02 Transplant organ/Indication: Kidney / IgA, Prograf toxicity Transplant ID: Mr. Christy Ambrose is a 55 y.o. male who is Status Post Kidney transplantation on 11/26/02. Post-op course was eventful delayed graft function, recurrent IgA nephropathy and Prograf toxicity, and adjustments in his anticonvulsants. Patient referred by Dr. Fuentes. Mr. Christy Ambrose presents to clinic for routine follow-up of care, patient is out (13 years) from Kidney transplantation. History of Present Illness: Patient with weight fluctuation recently. Trying to get employed at the [employer] but havingdifficulty. BP 100/74 today, 110s at home. Drinks 3L fluids/day. Denies lower ext edema. Low salt diet. Recently had his left arm AVF taken down due to massive size, risk for high output CHF. Healthcare maintenance for a transplant recipient: Immunizations [...] for diabetics, every 5 for non diabetics [place] kidney ultrasound looking for renal cell CA, every 5 years post transplant Bone density assessment every 9-12 years post transplant Annual fasting lipid profile Annual PTH-Vit D3 assessment until normalized Annual 24 hour timed urine for creatinine, protein, calcium, phosphate, magnesium ROS: Denies fevers, chills, nausea, vomiting, diarrhea, abd pain, chest pain, sob. All other review of systems were neither positive or negative. Medications: Prior to Admission medications Medication Sig Start Date End Date Taking? Authorizing Provider calciTRIol (ROCALTROL) 0.5 mcg Capsule Take 1 capsule by mouth daily. 11/13/15 11/12/16 Yes Anup Hawkins MD levETIRAcetam (KEPPRA) 500 mg Tablet take 1 tablet by mouth every morning and 2 tablets by mouth every evening 10/24/15 Yes Alfonzo Miles MD PROGRAF 1 mg Capsule Take 1 capsule by mouth 2 times daily. Kidney replaced by transplant 11/26/2002. Z94.0 09/13/15 Yes Aunp Hawkins MD hydrALAZINE (APRESOLINE) 50 mg Tablet take 1 tablet by mouth twice a day 09/03/15 Yes Anup Hawkins MD allopurinol (ZYLOPRIM) 100 mg Tablet Take 1.5 tablets by mouth daily. Indications: Gout 07/11/15 Yes Anup Hawkins MD mycophenolate (CELLCEPT) 250 mg Capsule Take 3 capsules by mouth 2 times daily. Kidney Transplant V42.0. Transplant Date; 11-26-02 04/02/15 Yes Camilo Ireland MD losartan (COZAAR) 25 mg Tablet take 1 tablet by mouth once daily 12/24/14 Yes Anup Hawkins MD DILTiazem (DILACOR XR) 120 mg Capsule, Sust. Release 24 hr take 1 capsule by mouth once daily 11/26/14 Yes Anup Hawkins MD warfarin (COUMADIN) 5 [...] 3 times daily. 12/03/10 Yes PROVIDER, HISTORICAL ciprofloxacin (CIPRO) 100 mg Tablet Take 100 mg by mouth 2 times daily. 12/03/15 PROVIDER, HISTORICAL oxyCODONE (ROXICODONE) 5 mg Tablet Take 1-2 tablets by mouth every 4 hours as needed for Pain. 11/20/15 12/03/15 Stephanie Shannon MD Allergies / ADRs: Allergies Allergen Reactions ??? Benazepril Hcl ??? Codeine Other (See Comments) Patient does not know reaction ??? Hydrochlorothiazide ??? Pollen Extracts Sneezing/runny nose PHYSICAL EXAM: Vitals: 12/03/15 1357 BP: 100/74 Pulse: 60 Gen - AAO x 3 in NAD [...] for CHRISTY AMBROSE ( ) as of 12/03/2015 19:33 Ref. Range 12/03/2015 11:06 WBC Latest Ref Range: 4.0 - 10.0 x10(3)/mcL 4.4 RBC Latest Ref Range: 4.63 - 6.08 x10(6)/mcL 3.00 (L) Hemoglobin Latest Ref Range: 13.7 - 17.5 gm/dL 8.8 (L) Hematocrit Latest Ref Range: 40.0 - 51.0 % 27.0 (L) MCV Latest Ref Range: 79.0 - 92.0 fL 90.0 MCH Latest Ref Range: 25.6 - 32.2 pg 29.3 MCHC Latest Ref Range: 32.0 - 36.5 gm/dL 32.6 RDWSD Latest Ref Range: 35.0 - 46.0 fL 46.9 (H) RDWCV Latest Ref Range: 10.9 - 14.4 % 14.1 Platelets Latest Ref Range: 145 - 370 x10(3)/mcL 262 MPV Latest Ref Range: 9.0 - 12.0 fL 9.3 Plat Immature % Latest Ref Range: 0.0 - 7.4 % 1.[address] % Latest Ref Range: 0.5 - 2.4 % 0.[address] Abs Latest Ref Range: 0.027 - 0.095 x10(6)/mcL 0.030 Immature Retic% Latest Ref Range: 2.3 - 15.9 % 2.2 (L) Reticulated Hgb Latest Ref Range: 28.5 - 38.9 pg 31.4 Neutr Abs (ANC) Latest Ref Range: 1.50 - 6.30 x10(3)/mcL 3.40 Neutrophils % Latest Units: % 77.8 Immature Gran % Latest Units: % 0.00 Lymphocytes % Latest Units: % 12.8 Monocytes % Latest Units: % 7.8 Eosinophils % Latest Units: % 1.4 Basophils % Latest Units: % 0.2 Veronika Gran Abs Latest Ref Range: 0.00 - 0.05 x10(3)/mcL 0.00 Lymphocytes Abs Latest Ref Range: 1.0 - 3.6 x10(3)/mcL 0.6 (L) Monocyte Abs Latest Ref Range: 0.2 - 1.0 x10(3)/mcL 0.3 Eosinophils Abs Latest Ref Range: 0.0 - 0.5 x10(3)/mcL 0.1 Basophils Abs Latest Ref Range: 0.0 - 0.2 x10(3)/mcL 0.0 Sodium Latest Ref Range: 135 - 145 mmol/L 142 Potassium Latest Ref Range: 3.5 - 5.0 mmol/L 5.3 (H) Chloride Latest Ref Range: 98 - 107 mmol/L 110 (H) CO2 Latest Ref Range: 22 - 31 mmol/L 17 (L) Anion Gap Latest Ref Range: 5 - 15 mmol/L 15 BUN Latest Ref Range: 10 - 20 mg/dL 42 (H) Creatinine Latest Ref Range: 0.80 - 1.50 mg/dL 2.25 (H) Estimated GFR Latest Ref Range: >=60 31 (L) Glucose Fasting Latest Ref Range: 65 - 99 mg/dL 96 Calcium Latest Ref Range: 8.5 - 10.5 mg/dL 8.3 (L) Magnesium Latest Ref Range: 0.69 - 1.07 mmol/L 0.66 (L) Hemoglobin A1C Latest Ref Range: 4.3 - 5.6 % 5.9 (H) Est Avg Gluc Latest Units: mg/dL 123 Phosphorus Latest Ref Range: 2.5 - 4.5 mg/dL 3.3 Uric Acid Latest Ref Range: 3.5 - 8.5 mg/dL 4.8 Total Protein Latest Ref Range: 6.1 - 8.0 gm/dL 6.3 Albumin Latest Ref Range: 3.2 - 5.2 gm/dL 4.0 Total Bilirubin Latest Ref Range: 0.2 - 1.3 mg/dL 0.3 Bili, Direct Latest Ref Range: 0.0 - 0.3 mg/dL 0.1 Alk Phos Latest Ref Range: 40 - 120 unit/L 138 (H) AST Latest Ref Range: 0 - 39 unit/L 17 ALT Latest Ref Range: 0 - 55 unit/L 12 25-OH Vit D Total Latest Ref Range: 30 - 100 ng/mL 28 (L) Chol, Total Latest Ref Range: <=199 mg/dL 80 HDL Latest Ref Range: >=40 mg/dL 25 (L) Chol/HDL Ratio Latest Units: ratio 3.2 Triglycerides Latest Ref Range: <=149 mg/dL 51 LDL Cholesterol Latest Ref Range: <=99 mg/dL 45 Tacrolimus Lvl Latest Units: ng/mL 3.0 PTH Latest Ref Range: 15 - 65 pg/mL 57 Impression/ Plan: Mr. Ambrose is a 55 yr old gentleman w/ hx of kidney transplant who presents to transplant clinic for f/u. 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 Hold Losartan. -History of edema in past with NaHCO3 replacement thus held. Immunosuppression -Prograf 1mg/1mg -Cellcept 750mg BID PO4/Mg -Phos 3.3 -Mag 0.66 Anemia -Hgb 8.8 -Epo 40K in clinic today. PCP to check iron studies. Hypertension -BP 100s. Hold Losartan. Hydralazine, Diltiazem, Metoprolol. Patient to call with BP readings in 2 weeks. Follow up: RTC 6 months Seen and Discussed w/ Dr. Ross Montes De Oca, DO Nephrology Fellow Pager #[phone] I reviewed all of the above findings and assessment of Dr. Montes De Oca, examined the patient and formulated the recommendations which accurately reflect mine. documented in this encounter Plan of Treatment Not on file documented as of this encounter Procedures Procedure Name Priority Date/Time Associated Diagnosis Comments ORDS - PROVIDER CARE SCAN 01/08/2016 12:00 AM EDT documented in this encounter Results * SCAN DOC: ORDS - PROVIDER CARE (01/08/2016 12:00 AM EDT) Scanning Provider MEDIA MGR SCAN EXT O RDR/RSLT * (ABNORMAL) Hemoglobin A1c (12/03/2015 11:06 AM EDT) Hemoglobin A1c 5.9(H) 4.3 - 5.6 % [facility] Comment: Reference Range: 4.3 - [...] Mellitus, Diabetes Care 2013; 36: Suppl. 1, W17-04 Estimated Average Glucose 123 mg/dL [facility] Comment: eAG equivalents for HbA1c percentages: HbA1c(%) ?eAG(mg/dL) 6.0 ?126 6.5 ?140 7.0 ?154 7.5 ?169 8.0 ?183 8.5 ?197 9.0 ?212 9.5 ?226 10.0 ? 240 Limitations: The eAG calculation has not been validated on women, individuals below 18 years old and above 70 years old, and individuals with hemoglobinopathies. Additional resources are available on the [facility] website: [email or web address] Rakesh GREWAL, Ashish J, Lizzette R, et al. ??Translating the A1C assay into estimated average glucose values. ??Diabetes Care 2008:31(8):1265-4545. Blood specimen (specimen) 12/03/2015 11:06 AM EDT 12/03/2015 11:16 AM EDT Narrative Resulting Agency Comment Spec In Lab Anup Hawkins MD CHEMISTRY ORDERAB LES Performing Organization Address [facility] de Phone Number [facility] [place] [address] * Lavender Tube HOLD (12/03/2015 11:06 AM EDT) Lavender Hold Sample in lab. [facility] Blood specimen (specimen) 12/03/2015 11:06 AM EDT 12/03/2015 11:16 AM EDT Anup Hawkins MD HEMATOLOGY ORDERA BLES Performing Organization Address [facility] Co de Phone Number [facility] [place] [address] * Gold Tube HOLD (12/03/2015 11:06 AM EDT) Gold Hold Sample in lab. [facility] Blood specimen (specimen) 12/03/2015 11:06 AM EDT 12/03/2015 11:16 AM EDT Anup Hawkins MD CHEMISTRY ORDERAB LES Performing Organization Address [facility] Co de Phone Number [facility] [place] [address] * (ABNORMAL) VIT D Total Evaluation (12/03/2015 11:06 AM EDT) Vitamin D Total 25 OH 28(L) 30 - 100 ng/mL [facility] Comment: Deficient <10 ng/mL Insufficient 10 to 29 ng/mL Sufficient 30 to 100 ng/mL Potential Intoxication >100 ng/mL According to the [place] National Osteoporosis Foundation, Vitamin D concentrations >30 ng/mL are sufficient to protect bone health. ??The National Kidney Foundation has similarly stated that patients with Vitamin D concentrations <30ng/mL should be considered to be insufficient or deficient. http://ALOHA/DHnatlkidneyfoundation http://ALOHA/DHRUSBASEVitD The [employer] i[employer] Vitamin D Immunoassay detects both 25-OH Vitamin D2 and 25-OH Vitamin D3, but only a total Vitamin D concentration is reported. Blood specimen (specimen) 12/03/2015 11:06 AM EDT 12/03/2015 11:16 AM EDT Narrative Resulting Agency Comment Spec In Lab Anup Hawkins MD CHEMISTRY ORDERAB LES Performing Organization Address City/[facility]/ZIP Co de Phone Number [facility] [place] [address] * 1,25-dihydroxycholecalciferol (12/03/2015 11:06 AM EDT) Pathologist [facility] Vit D 1,25 Dihydroxy (NOVEMBER) 54 18 - 64 pg/mL [facility] Comment: Test Performed by: [place] [address] Superintendent Power: Swapnil Torres II, M.D., Ph.D. Blood specimen (specimen) 12/03/2015 11:06 AM EDT 12/03/2015 2:15 PM EDT Narrative Resulting Agency Comment Spec In Lab Anup Hawkins MD LAB SEND OUT RYAN CALERO [facility] [place] [address] * PTH (12/03/2015 11:06 AM EDT) Parathyroid Hormone 57 15 - 65 pg/mL [facility] Blood specimen (specimen) 12/03/2015 11:06 AM EDT 12/03/2015 11:16 AM EDT Narrative Resulting Agency Comment Spec In Lab Anup Hawkins MD CHEMISTRY ORDERAB LES [facility] [place] [address] * Tacrolimus level (12/03/2015 11:06 AM EDT) Tacrolimus 3.0 ng/mL [facility] Comment:Trough therapeutic: 5-15 ng/mL Blood specimen (specimen) 12/03/2015 11:06 AM EDT 12/03/2015 1:51 PM EDT Narrative Resulting Agency Comment Spec In Lab Anup Hawkins MD CHEMISTRY ORDERAB LES [facility] [place] [address] * Uric acid (12/03/2015 11:06 AM EDT) Uric Acid 4.8 3.5 - 8.5 mg/dL [facility] Blood specimen (specimen) 12/03/2015 11:06 AM EDT 12/03/2015 11:16 AM EDT Narrative Resulting Agency Comment Spec In Lab Anup Hawkins MD CHEMISTRY ORDERAB LES [facility] [place] [address] * Phosphorus (12/03/2015 11:06 AM EDT) Phosphorus 3.3 2.5 - 4.5 mg/dL [facility] Blood specimen (specimen) 12/03/2015 11:06 AM EDT 12/03/2015 11:16 AM EDT Narrative Resulting Agency Comment Spec In Lab Anup Hawkins MD CHEMISTRY ORDERAB LES [facility] [place] [address] * (ABNORMAL) Magnesium (12/03/2015 11:06 AM EDT) Magnesium 0.66(L) 0.69 - 1.07 mmol/L [facility] Blood specimen (specimen) 12/03/2015 11:06 AM EDT 12/03/2015 11:16 AM EDT Narrative Resulting Agency Comment Spec In Lab Anup Hawkins MD CHEMISTRY ORDERAB LES Performing Organization Address [facility] Co de Phone Number [facility] [place] [address] * (ABNORMAL) Lipid panel (fasting) (12/03/2015 11:06 AM EDT) Cholesterol, Total 80 <=199 mg/dL [facility] Comment: Recommendations of the NCEP Adult Treatment Panel for the following risk cutoff thresholds for the [place] population: Desirable: <200 mg/dL Borderline High: 200-239 mg/dL High: > or = 240 mg/dL Triglyceride 51 <=149 mg/dL [facility] Comment: Reference Range: Normal triglycerides: ??<150 mg/dL Borderline high: ??150-199 mg/dL High: ??200-499 mg/dL Very high: ??>sx=304 mg/dL RAYMOND 2001; 285(19):4062-5748 HDL Cholesterol 25(L) >=40 mg/dL [facility] Comment: Reference range: ??Low HDL: ?? < 40 mg/dL ??Normal: ?40-60 mg/dL ??Desirable: > 60 mg/dL RAYMOND 2001; 285(19):5036-4032 LDL Cholesterol 45 <=99 mg/dL [facility] Comment: Reference range: ?? Optimal: ?<100 mg/dL ?? Near Optimal/Above Optimal: ?? 100-129 mg/dL ?? Borderline high: ?130-159 mg/dL ?? High: ? 160-189 mg/dL ?? Very high: ?>yo=491 mg/dL RAYMOND 2001: 285(19):8077-9431 Cholesterol/HDL Ratio 3.2 ratio [facility] Comment: A Cholesterol to HDL ratio below 4:1 is desirable. ??Studies suggest that increased CAD risk occurs at ratios above 5 for females and above 6 for men. ? [place] Heart Association ??(http://www.americanheart.org) ? Marizol Int Med, 1994; 121:641 ? AM J Med, 1998; 105(1A):48S Blood specimen (specimen) 12/03/2015 11:06 AM EDT 12/03/2015 11:16 AM EDT Narrative Resulting Agency Comment Spec In Lab Anup Hawkins MD CHEMISTRY ORDERAB LES [facility] [place] [address] * (ABNORMAL) Reticulocyte Count (12/03/2015 11:06 AM EDT) Reticulocyte % 0.9 0.5 - 2.4 % [facility] Retic Abs # 0.030 0.027 - 0.095 x10(6)/mcL [facility] Immature Retic% 2.2(L) 2.3 - 15.9 % [facility] Reticulated Hgb 31.4 28.5 - 38.9 pg [facility] Immature Plt % 1.2 0.0 - 7.4 % [facility] Blood specimen (specimen) 12/03/2015 11:06 AM EDT 12/03/2015 11:16 AM EDT Narrative Resulting Agency Comment Spec In Lab Anup Hawkins MD HEMATOLOGY ORDERA BLES [facility] [place] [address] * (ABNORMAL) CMP w/fasting Glucose (12/03/2015 11:06 AM EDT) Glucose Fasting 96 65 - 99 mg/dL [facility] Comment: ?Fasting* Glucose Interpretive Criteria [...] of Diabetes Mellitus, Position Statement from the [place] Diabetes Association. ??Diabetes Care, Volume 33, Supplement 1, Jul 2009 Blood Urea Nitrogen 42(H) 10 - 20 mg/dL [facility] Creatinine 2.25(H) 0.80 - 1.50 mg/dL [facility] Comment: Please note that the pediatric reference intervals supplied above were not validated at [facility]. Results from pediatric patients should be interpreted in conjunction to the patient's age, height and muscle mass. Sodium 142 135 - 145 mmol/L [facility] [...] questions. Chloride 110(H) 98 - 107 mmol/L [facility] Carbon Dioxide 17(L) 22 - 31 mmol/L [facility] Anion Gap 15 5 - 15 mmol/L [facility] Calcium 8.3(L) 8.5 - 10.5 mg/dL [facility] Protein, Total 6.3 6.1 - 8.0 gm/dL [facility] Albumin 4.0 3.2 - 5.2 gm/dL [facility] Aspartate Aminotransferase 17 0 - 39 unit/L [facility] Alanine Aminotransferase 12 0 - 55 unit/L [facility] Alkaline Phosphatase 138(H) 40 - 120 unit/L [facility] Bilirubin, Total 0.3 0.2 - 1.3 mg/dL [facility] Bilirubin, Direct 0.1 0.0 - 0.3 mg/dL [facility] Est Glomerular Filtration Rate 31(L) >=60 [facility] Comment: This estimated GFR (eGFR) [...] the following links into your internet browser. [email or web address] [email or web address] Blood specimen (specimen) 12/03/2015 11:06 AM EDT 12/03/2015 11:16 AM EDT Narrative Resulting Agency Comment Spec In Lab Anup Hawkins MD CHEMISTRY ORDERAB LES [facility] [place] [address] documented in this encounter Visit Diagnoses Diagnosis Kidney replaced by transplant Healthcare maintenance Routine general medical examination at a [facility] care facility Need for prophylactic immunotherapy Anemia of chronic renal failure, stage 3 (moderate) documented in this encounter Care Teams Iron Molder Helper Relationship Specialty Start Date End Date Carroll Fuentes DO [address] [facility] [address] [place] [address] PCP - General 09/23/11 10/20/22 documented as of this encounter
--- OUTSIDE RECORDS SUMMARY | 2024-04-22 11:13 | XMS_ITS | Encounter Summary ---
Author Organization [place] [address] Care Team Providers Care Editor Index Name Role Phone Carroll Fuentes DO Primary Care Provider [phone] Encounter Details Date Type Department Care Team (Late st Contact Info) Description 12/20/2015 Telephone [place] [phone] Antony Yin Social History Tobacco Use Types [...] * Telephone Encounter - Antony Yin - 12/20/2015 3:34 PM EDT Patient called to ask for a later surgery date. He will have surgery on 02/04. documented in this encounter Plan of Treatment Not on file documented as of this encounter Visit Diagnoses Not on filedocumented in this encounter Care Teams Editor Index Relationship Specialty Start Date End Date Carroll Fuentes DO [address] [place] [address] [address] [facility] [[email or web address] [address] [place] [address] PCP - General 09/23/11 10/20/22 documented as of this encounter
--- OUTSIDE RECORDS SUMMARY | 2024-04-22 11:13 | XMS_ITS | Encounter Summary ---
Author Organization [facility] [place] [address] Care Team Providers Care Food Sales Clerk Name Role Phone Carroll Fuentes DO Primary Care Provider [phone] Reason for Visit * Reason Comments Medication Refill Encounter Details Date Type Department Care Team (Late st Contact Info) Description 12/24/2015 Refill [place] [address] Anup Hawkins MD [facility] [place] [address] High level of uric acid in blood [...] chemistry documented in this encounter Care Teams Food Sales Clerk Relationship Specialty Start Date End Date Carroll Fuentes DO [address] [place], [place] [address] PCP - General 09/23/11 10/20/22 documented as of this encounter
--- OUTSIDE RECORDS SUMMARY | 2024-04-22 11:13 | XMS_ITS | Encounter Summary ---
Author Organization [facility] Address [facility] [place] [address] Care Team Providers Care Pre Sales Network Engineer Name Role Phone AlfredoCarroll allison Primary Care Provider [phone] Reason for Referral * Diagnostic Test (Routine) - Closed Specialty Diagnoses / Procedures Referred By Shashi ko Referred To Contact Radiology Diagnoses Neck mass Procedures CT Neck Wo Contrast Miguel Angel Moreno MD [facility] [place] [address] [facility] [place] [address] Referral ID Status Reason Start Date Expiration Date V isits Requested Visits Authorized [id number] Closed Specialty Service Requested 11/22/2015 02/20/2016 1 1 Encounter Details Date Type Department Care Team (Late st Contact Info) Description 11/22/2015 Orders [place] [address] Miguel Angel Moreno MD [facility] [place] [address] Neck mass Social History Tobacco Use Types Packs/Day [...] as of this encounter Results * CT Neck Wo Contrast (12/03/2015 8:43 AM EDT) Anatomical Region Laterality Modality Neck Computed Tomogra phy Impressions 12/03/2015 8:56 AM EDT Findings consistent with cutaneous lesion near the angle of the mandible with possible deep extension to the parotid. Questionable abnormality in the region of the left vallecula. No definite adenopathy or other abnormalities. Narrative 12/03/2015 8:56 AM EDT EXAMINATION: CT NECK WO CONTRAST CLINICAL HISTORY: mass in left neck, ? skin cancer TECHNIQUE: An unenhanced CT of the neck was done. COMPARISON: None FINDINGS: There is a superficial soft tissue mass seen relating to the skin of the left neck posterior to the angle of the mandible and adjacent to the inferior portion of the left parotid gland. I cannot define a fat plane between it and the parotid. No definite local or remote adenopathy is evident. The graphic appearance would be more suggestive of a cutaneous and parotid lesion. However, the parotid may be involved. Some mild irregularity is seen in the region of the left vallecula, probably secretions, but direct visualization recommended. No other signs of mass or other osseous or soft tissue abnormality can be seen. Procedure Note Dre Ruiz MD - 12/03/2015 EXAMINATION: CT NECK WO CONTRAST CLINICAL HISTORY: mass in left neck, ? skin cancer TECHNIQUE: An unenhanced CT of the neck was done. COMPARISON: None FINDINGS: There is a superficial soft tissue mass seen relating to the skin of theleft neck posterior to the angle of the mandible and adjacent to the inferiorportion of the left parotid gland. I cannot define a fat plane between it andthe parotid. No definite local or remote adenopathy is evident. The graphic appearance would be more suggestive of a cutaneous and parotid lesion.However, the parotid may be involved. Some mild irregularity is seen in the regionof the left vallecula, probably secretions, but direct visualization recommended.No other signs of mass or other osseous or soft tissue abnormality can beseen. IMPRESSION Findings consistent with cutaneous lesion near the angle of the mandiblewith possible deep extension to the parotid. Questionable abnormality in theregion of the left vallecula. No definite adenopathy or other abnormalities. Miguel Angel Moreno MD IMG CT ORDERABLES documented in this encounter Visit Diagnoses Diagnosis Neck mass Swelling, mass, or lump in head and neck Neck mass Swelling, mass, or lump in head and neck documented in this encounter Care Teams Pre Sales Network Engineer Relationship Specialty Start Date End Date Carroll Fuentes DO [address] [place] [address] PCP - General 09/23/11 10/20/22 documented as of this encounter
--- OUTSIDE RECORDS SUMMARY | 2024-04-22 11:13 | XMS_ITS | Encounter Summary ---
Author [place] [address] Care Team Providers Care Art Dealer Name Role Phone AlfredoCarroll allison Primary Care Provider [phone] Encounter Details Date Type Department Care Team (Late st Contact Info) Description 12/19/2015 Telephone [place] [phone] Christian Leblanc Social History Tobacco Use Types Packs/Day Years [...] encounter Miscellaneous Notes * Telephone Encounter - Christian Leblanc - 12/19/2015 5:01 PM EDT Booked surgery with Mr. Ram via telephone call, confirmed surgery date of 01.10.2016, instruction packet given, follow up 01.23.2016. documented in this encounter Plan of Treatment Not on file documented as of this encounter Visit Diagnoses Not on filedocumented in this encounter Care Teams Art Dealer Relationship Specialty Start Date End Date Carroll Fuentes DO [address] [place] [address] PCP - General 09/23/11 10/20/22 documented as of this encounter
--- OUTSIDE RECORDS SUMMARY | 2024-04-22 11:13 | XMS_ITS | Encounter Summary ---
[place] [address] Care Team Providers Care Silver Solution Mixer Name Role Phone Carroll Fuentes DO Primary Care Provider Reason for Visit * Reason Onset Date Comments Medication Refill 03/07/2015 Encounter Details Date Type Department Care Team (Late st Contact Info) Description 03/07/2015 Refill [place] [phone] Autumn Burgos, RN Social History Tobacco Use Types Packs/Day [...] on filedocumented in this encounter Care Teams Silver Solution Mixer Relationship Specialty Start Date End Date Carroll Fuentes DO [address] [place] [address] PCP - General 09/23/11 10/20/22 documented as of this encounter
--- OUTSIDE RECORDS SUMMARY | 2024-04-22 11:13 | XMS_ITS | Encounter Summary ---
Author Organization [facility] Address [facility] [place] [address] Care Team Providers Care Unix Engineer Name Role Phone AlfredoCarroll allison Primary Care Provider [phone] Encounter Details Date Type Department Care Team (Latest Contact Info) Description 01/30/2015 7:23 PM EDT - 01/30/2015 11:59 PM EDT Hospital [place] [address] Anup Hawkins MD [facility] [place] [address] Discharge Disposition: Home Social History Tobacco Use [...] Sig Dispensed Refills Start Date End Date losartan (COZAAR) 25 mg Tablet take 1 [...] a day 180 tablet 2 11/26/2014 09/03/2015 mycophenolate (CELLCEPT) 250 mg CapsuleIndications:S/ P kidney transplant Take 3 capsules by mouth 2 times daily. Kidney Transplant V42.0. Transplant Date; 11-26-02 180 capsule 4 10/23/2014 04/02/2015 PROGRAF 1 mg Capsule Take 1 capsule by mouth 2 times daily. 120 capsule 5 07/17/2014 03/07/2015 levETIRAcetam (KEPPRA) 500 mg Tablet Take 1 [...] Associated Diagnosis Comments LAVENDER TUBE HOLD Routine 01/30/2015 7: 38 PM EDT TACROLIMUS LEVEL Routine 01/30/2015 7:38 PM EDT documented in this encounter Results * Lavender Tube HOLD (01/30/2015 7:38 PM EDT) Lavender Hold [facility] Blood specimen (specimen) Venous Draw / Unknown 01/30/2015 7:38 PM EDT 01/30/2015 7:39 PM EDT Anup Hawkins MD HEMATOLOGY ORDERA BLES Performing Organization Address City/[facility]/ZIP Co de Phone Number [facility] * Tacrolimus level (01/30/2015 7:38 PM EDT) Tacrolimus 6.4 ng/mL [facility] Comment:Trough therapeutic: 5-15 ng/mL Blood specimen (specimen) Venous Draw / Unknown 01/30/2015 7:38 PM EDT 01/31/2015 8:01 AM EDT Narrative Resulting Agency Comment Spec In Lab Aunp Hawkins MD CHEMISTRY ORDERAB LES Performing Organization Address [facility] Co de Phone Number [facility] documented in this encounter Visit Diagnoses Not on filedocumented in this encounter Care Teams Unix Engineer Relationship Specialty Start Date End Date Carroll Fuentes DO [address] [place] [address] PCP - General 09/23/11 10/20/22 documented as of this encounter
--- OUTSIDE RECORDS SUMMARY | 2024-04-22 11:13 | XMS_ITS | Encounter Summary ---
Author Organization [facility] Address [facility] [place] [address] Care Team Providers Care Process Controls Technician Name Role Phone AlfredoCarroll allison Primary Care Provider [phone] Encounter Details Date Type Department Care Team (Late st Contact Info) Description 11/08/2015 11:00 AM EDT Office [place] [address] Stephanie Ireland MD [facility] [place] [address] A-V fistula Social History Tobacco Use Types Packs/Day Years [...] Sign Reading Time Taken Comments Blood Pressure 104/76 11/08/2015 11:47 AM EDT Pulse 53 11/08/2015 11:47 AM EDT Temperature 36.8 ??C (98.2 ??F) 11/08/2015 11:47 AM E DT Respiratory Rate 16 11/08/2015 11:47 AM EDT Oxygen Saturation - - Inhaled Oxygen Concentration - - Weight 84.6 kg (186 lb 6.4 oz) 11/08/2015 11:47 AM EDT Height 182.9 cm (6') 11/08/2015 11:47 AM EDT Body Mass Index 25.28 11/08/2015 11:47 AM EDT documented in this encounter Progress Notes * Stephanie Ireland MD - 11/09/2015 11:41 AM EDT Initial Evaluation: Transplantation Date: 11/09/2015 Patient: Christy Ram Referring Provider: Self History of Present Illness: Mr. Ram is a 55-yo male with a history of ESRD who is s/p prior successful kidney transplantation just over 12 years ago. He is not currently on dialysis therapy and has not required use of his dialysis access in the left arm since transplantation. He has been closely followed by Dr. Hawkins who last saw him in November of last year. His last creatinine level was in the low 2 range and it was notfelt that he was nearing dialysis requirements at that time. He has a history of a left radiocephalic av fistula and left brachiocephalic av fistula that were performed at an outside institution prior to his kidney transplant operation. The left forearm portion of his cephalic vein has become very large over the last several years and he was referred to me for traumatic injury to the site. Three days prior to his clinic visit he was working in a mop bucket and as he moved his hands in and out of the bucket he struck the dorsum of the wrist. This was painful and over the next 12 hours he developed swelling and contusion. There was no evidence of pulsatile mass and he never had external bleeding. He did not have pain, weakness, color change, or numbness in the ipsilateral left hand distal to the site. He presented to an ED where the site was evaluated and they placed an ANILA wrap around the site. His discharge instructions apparently informed him that he should contact our clinic to evaluate this and he presented three days later. Problem List: Patient Active Problem List Diagnosis Code ??? Epilepsy G40.909 ??? End stage renal disease N18.6 ??? Gout M10.9 ??? Hypertension I10 ??? Left leg DVT I82.402 ??? Kidney replaced by transplant Z94.0 ??? IgA nephropathy N02.8 ??? BCC (basal cell carcinoma of skin) C44.91 ??? Acne rosacea L71.9 ??? Nevus D22.9 ??? Rosacea L71.9 Past Medical History: ?? Kidney transplant recipient ?? Immunosuppressed patient (pharmacologically for transplantation) ?? IgA nephropathy ?? Hypothyroidism ?? H/O DVT ?? Seizure d/o (controlled on Keppra) ?? Traumatic brain injury ?? HTN ?? Basal cell carcinoma ?? gout Past Surgical History: ?? Kidney transplantation 2002 ?? AV fistulae, left radiocephalic (snuff box) and brachiocephalic ?? Excision of BCC, trunk FAMILY HISTORY: ?? No history of familial renal disease SOCIAL HISTORY: History Substance Use Topics ??? Smoking status: Former Smoker Types: Cigarettes Quit date: 12/03/2000 ??? Smokeless tobacco: Former User Quit date: 04/14/2001 ??? Alcohol Use: No Allergies: Benazepril hcl; Hydrochlorothiazide; and Pollen extracts Current Meds: Current Outpatient Prescriptions Medication Sig Dispense Refill ??? levETIRAcetam (KEPPRA) 500 mg Tablet take 1 tablet by mouth every morning and 2 tablets by mouth every evening 90 tablet 0 ??? PROGRAF 1 mg Capsule Take 1 capsule by mouth 2 times daily. Kidney replaced by transplant 11/26/2002. Z94.0 60 capsule 6 ??? hydrALAZINE (APRESOLINE) 50 mg Tablet take 1 tablet by mouth twice a day 180 tablet 0 ??? allopurinol (ZYLOPRIM) 100 mg Tablet Take 1.5 tablets by mouth daily. Indications: Gout 45 tablet 5 ??? mycophenolate (CELLCEPT) 250 mg Capsule Take 3 capsules by mouth 2 times daily. Kidney Transplant V42.0. Transplant Date; 11-26-02 180 capsule 4 ??? losartan (COZAAR) 25 mg Tablet take 1 tablet by mouth once daily 90 tablet 3 ??? calcium acetate (PHOSLO) 667 mg Capsule Take 1 capsule by mouth 3 times daily (with meals). 90 capsule 11 ??? calciTRIol (ROCALTROL) 0.25 mcg Capsule Take 2 capsules by mouth daily. 60 tablet 3 ??? DILTiazem (DILACOR XR) 120 mg Capsule, Sust. Release 24 hr take 1 capsule by mouth once daily 90 capsule 3 ??? warfarin (COUMADIN) 5 mg tablet [...] No current facility-administered medications for this visit. ROS: Review of Systems Constitutional: Negative for fever and chills. All other systems reviewed and are negative. Body mass index is 25.27 kg/(m^2). Vital Signs: BP 104/76 mmHg Pulse 53 Temp(Src) 36.8 ??C (98.2 ??F) (Oral) Resp 16 Ht 182.9 cm (6') Wt 84.55 kg (186 lb 6.4 oz) BMI 25.27 kg/m2 Physical Exam: Physical Exam Constitutional: He is oriented to person, place, and time. He appears well- developed and well-nourished. No distress. HENT: Head: Normocephalic and atraumatic. Eyes: Conjunctivae are normal. Right eye exhibits no discharge. Left eye exhibits no discharge. No scleral icterus. Neck: No evidence of carotid bruits bilaterally Cardiovascular: Normal rate, regular rhythm and normal heart sounds. Exam reveals no gallop and no friction rub. No murmur heard. Large cephalic vein fistula that extends from the dorsum of the left thumb to the mid half of the arm. This appears to be a snuffbox anastomosis. There are multiple very large sidebranches off of thecephalic vein. There is a strong thrill in the fistula. There is no evidence of pulsatile mass. There is no external bleeding. Pulmonary/Chest: Effort normal. No respiratory distress. He has no wheezes. He has no rales. Abdominal: Soft. He exhibits no distension and no mass. There is no tenderness. There is no reboundand no guarding. Musculoskeletal: He exhibits no edema. Neurological: He is alert and oriented to person, place, and time. Skin: Skin is warm and dry. No rash noted. He is not diaphoretic. No erythema. No pallor. There is contusion extending over the dorsum of the hand and to the level of the lower third of theforearm on the left. There are no palpable hematomata. No trauma to the skin. No pain on palpation over the site. There is pitting edema in the left wrist and hand that the patient tells me has been chronic. The digits of the left hand are pink and warm. Capillary refill is < 2 sec in the digitsof the left hand. Psychiatric: He has a normal mood and affect. His behavior is normal. Judgment and thought content normal. Labs: Lab Results Component Value Date CREATININE 2.21* 11/28/2014 K 4.6 11/28/2014 GLUCOSE 99 05/23/2013 HCT 32.9* 11/28/2014 WBC 3.9* 11/28/2014 Impression/Recommendations: Mr. Ram is a 55-yo male with a history of kidney transplantation 12 years ago. His last creatinine level one year ago was 2.2. He has not developed a dialysis requirement and he has been very closely followed by Dr. Hawkins to manage the graft. He presented to my clinic with traumatic injury to the left forearm av fistula that was placed over a decade ago. This is a very large mature fistulaand the blunt trauma to the area led to contusion three days prior the clinic visit. There is no clinical evidence of active bleeding and I sent him to the vascular lab for duplex imaging to confirm this. The study showed no active extravasation and no evidence of pseudoaneurysm. He has intact perfusion to his hand distal to the fistula site. I recommended that we proceed with elective ligation and vein resection in order to avoid trauma tothe fistula in the future. With his slowly declining allograft function, it is possible that he could require dialysis therapy in the future, but my opinion is that it would not be appropriate through this large multibranched cephalic vein fistula. The risk of recurrent trauma to the area poses a low but real risk for him in light of this event. He has no pain on palpation over the forearm nor hand to suggest that there is orthopedic injury. He is interested in moving forward with the ligation and vein resection procedure. He met with Laurie following the clinic visit to arrange for the operation. As he nears the need for dialysis in the future, we will make arrangements for repeat vein mapping and establishment of new access. We will need to hold his Coumadin preoperatively. STEPHANIE IRELAND MD documented in this encounter Plan of Treatment Not on file documented as of this encounter Results * AVF/Established Access Evaluation (11/08/2015 12:34 PM EDT) VB Text Report Department: Vascular Surgery Lab Patient: [id number] (RANOL, CHRISTY) CPT: 70695 ICD10: I77.0 Referring Physician: STEPHANIE IRELAND ?? Indications: Patient with h/o multiple failed AVFs, kidney transplant and long standing hand swelling, now with trauma to the wrist/dorsum of hand, ? PSA/hematoma ICD10 Diagnosis Code: I77.0 Findings: Interpretation: Left: Difficult exam due to very tortuous enlarged fistula outflow veins in the forearm. Area of trauma at wrist and dorsum of hand imaged. Enlarged vein here with flow towards the hand measuring approximately 2cm in AP. No evidence of hematoma or obvious pseudoaneurysm in this area. Antegrade axillo-subclavian vein. Comparison: ??No previous study in our vascular lab database for comparison. Electronically Signed by: SHAWNA LUU on 2015-11-08 02:43:06 PM [facility] VB Text Report End of Report [facility] 11/08/2015 12:3 4 PM EDT Stephanie Ireland MD VASCULAR ORDER KELLY [facility] documented in this encounter Visit Diagnoses Diagnosis A-V fistula Arteriovenous fistula, acquired documented in this encounter Care Teams Process Controls Technician Relationship Specialty Start Date End Date Carroll Fuentes DO [address] [place] [address] PCP - General 09/23/11 10/20/22 documented as of this encounter
--- OUTSIDE RECORDS SUMMARY | 2024-04-22 11:13 | XMS_ITS | Encounter Summary ---
[place] [address] Care Team Providers Care Soda Room Operator Name Role Phone Carroll Fuentes DO Primary Care Provider [phone] Reason for Visit * Reason Onset Date Comments Medication Refill 01/24/2016 Encounter Details Date Type Department Care Team (Late st Contact Info) Description 01/24/2016 Refill [place] [phone] Autumn Burgos, RN S/P kidney transplant Social [...] transplant documented in this encounter Care Teams Soda Room Operator Relationship Specialty Start Date End Date Carroll Fuentes DO [address] [place] [address] PCP - General 09/23/11 10/20/22 documented as of this encounter
--- OUTSIDE RECORDS SUMMARY | 2024-04-22 11:13 | XMS_ITS | Encounter Summary ---
[place] [address] Care Team Providers Care Lunchroom Supervisor Name Role Phone Carroll Fuentes DO Primary Care Provider Reason for Visit * Reason Onset Date Comments Medication Refill 09/13/2015 Encounter Details Date Type Department Care Team (Late st Contact Info) Description 09/13/2015 Refill [place] [address] Tosha Castro, RN Social History Tobacco Use [...] on filedocumented in this encounter Care Teams Lunchroom Supervisor Relationship Specialty Start Date End Date Carroll Fuentes DO [address] [place] [address] PCP - General 09/23/11 10/20/22 documented as of this encounter
--- OUTSIDE RECORDS SUMMARY | 2024-04-22 11:13 | XMS_ITS | Encounter Summary ---
Author Organization [facility] [place] [address] Care Team Providers Care Special Education Para Professional Name Role Phone Carroll Fuentes DO Primary Care Provider Reason for Referral * Diagnostic Test (Routine) - Closed Specialty Diagnoses / Procedures Referred By Contac t Referred To Contact Radiology Diagnoses Neck mass Procedures CT Neck Wo Contrast Miguel Angel Moreno MD [facility] [place] [address] [facility] [place] [address] Referral ID Status Reason Start Date Expiration Date V isits Requested Visits Authorized [id number] Closed Specialty Service Requested 11/22/2015 02/20/2016 1 1 Reason for Visit * Diagnostic Test (Routine) - Closed Specialty Diagnoses / Procedures Referred By Contac t Referred To Contact Radiology Diagnoses Neck mass Procedures CT Neck Wo Contrast Miguel Angel Moreno MD [facility] [place] [address] [facility] [place] [address] Referral ID Status Reason Start Date Expiration Date V isits Requested Visits Authorized [id number] Closed Specialty Service Requested 11/22/2015 02/20/2016 1 1 Encounter Details Date Type Department Care Team (Latest Contact Info) Description 12/03/2015 7:39 AM EDT - 12/03/2015 11:59 PM EDT Hospital Encounter CT Scan at [facility] [place] [address] Miguel Angel Moreno MD [facility] [place] [address] Neck mass Discharge Disposition: Home Social History Tobacco [...] Sig Dispensed Refills Start Date End Date calciTRIol (ROCALTROL) 0.5 mcg Capsule Take 1 capsule by mouth daily. 30 capsule 11 11/13/2015 02/12/2016 levETIRAcetam (KEPPRA) 500 mg Tablet take 1 tablet by mouth every morning and 2 tablets by mouth every evening 90 tablet 0 10/24/2015 02/12/2016 PROGRAF 1 mg Capsule Take 1 capsule by mouth 2 times daily. Kidney replaced by transplant 11/26/2002. Z94.0 60 capsule 6 09/13/2015 03/17/2016 hydrALAZINE (APRESOLINE) 50 mg Tablet take 1 tablet by mouth twice a day 180 tablet 0 09/03/2015 12/05/2015 allopurinol (ZYLOPRIM) 100 mg TabletIndications:gou t Take 1.5 tablets by mouth daily. Indications: Gout 45 tablet 5 07/11/2015 12/24/2015 mycophenolate (CELLCEPT) 250 mg CapsuleIndications:S/ P kidney transplant Take 3 capsules by mouth 2 times daily. Kidney Transplant V42.0. Transplant Date; 11-26-02 180 capsule 4 04/02/2015 01/24/2016 losartan (COZAAR) 25 mg Tablet take 1 tablet by mouth once daily 90 tablet 3 12/24/2014 12/12/2015 DILTiazem (DILACOR XR) 120 mg Capsule, Sust. Release 24 hr take 1 capsule by mouth once daily 90 capsule 3 11/26/2014 01/31/2016 warfarin (COUMADIN) 5 mg tablet Take 1 [...] Name Priority Date/Time Associated Diagnosis Comments CT NECK SOFT TISSUE WO CONTRAST Routine 12/03/2015 8:43 AM EDT Neck mass documented in this encounter Results * CT Neck Wo [...] vallecula. No definite adenopathy or other abnormalities. Authorizing Provider Result Angie Moreno MD IMG CT ORDERABLES documented in this encounter Visit Diagnoses Diagnosis Neck mass Swelling, mass, or lump in head and neck documented in this encounter Care Teams Special Education Para Professional Relationship Specialty Start Date End Date Carroll Fuentes DO [address] [facility] [place] [address] PCP - General 09/23/11 10/20/22 documented as of this encounter
--- OUTSIDE RECORDS SUMMARY | 2024-04-22 11:13 | XMS_ITS | Encounter Summary ---
Author Organization [facility] [place] [address] Care Team Providers Care Trailer Body Assembler Name Role Phone AlfredoCarroll allison Primary Care Provider [phone] Encounter Details Date Type Department Care Team (Late st Contact Info) Description 12/18/2015 Telephone [place] [id number] Autumn Burgos, RN Social History Tobacco Use [...] encounter Miscellaneous Notes * Telephone Encounter - Autumn Burgos LPN - 12/18/2015 12:42 PM EDT -Caller: Adama -Call Back Number: [phone] -Reason for Call/Question: BP Values 7 @ 8:00am 126/79 6/6 @ 7:00am 126/83 57 6/5 @ 7:00am 118/73 54 6/4 @ 7:00am 126/77 62 6/3 @ 7:00am 122/72 56 6/2 @ 7:00am 126/75 55 6/1 @ 7:000am 122/78 62 5/31 @ 10:00am 114/72 55 5/30 @ 7:00am 122/76 57 5/29 @ 7:00am 120/77 63 5/28 @ 7:00am 122/80 59 5/27 @ 7:00am 123/76 62 5/26 @ 7:00am 124/70 60 5/25 @ 7:00am 118/77 62 ? documented in this encounter Plan of Treatment Not on file documented as of this encounter Visit Diagnoses Not on filedocumented in this encounter Care Teams Trailer Body Assembler Relationship Specialty Start Date End Date Carroll Fuentes DO [address] [place] [address] PCP - General 09/23/11 10/20/22 documented as of this encounter
--- OUTSIDE RECORDS SUMMARY | 2024-04-22 11:13 | XMS_ITS | Encounter Summary ---
Author Organization [facility] Address [facility] [place] [address] Care Team Providers Care Supply Teacher Name Role Phone Carroll Fuentes DO Primary Care Provider [phone] Reason for Visit * Reason Comments Medication Refill Encounter Details Date Type Department Care Team (Late st Contact Info) Description 09/03/2015 Refill Solid [place] [address] Anup Hawkins MD [facility] [place] [address] Social History Tobacco Use Types Packs/Day Years [...] on filedocumented in this encounter Care Teams Supply Teacher Relationship Specialty Start Date End Date Carroll Fuentes DO [address] [place] [address] PCP - General 09/23/11 10/20/22 documented as of this encounter
--- OUTSIDE RECORDS SUMMARY | 2024-04-22 11:13 | XMS_ITS | Encounter Summary ---
Author Organization [facility] [place] [address] Care Team Providers Care Landscape Engineer Name Role Phone AlfredoCarroll geiger Primary Care Provider [phone] Encounter Details Date Type Department Care Team (Latest Contact Info) Description 12/03/2015 10:30 AM EDT Laboratory Appointment Lab [address] [place] [id number] Kidney replaced by transplant; Healthcare maintenance; Need for prophylactic immunotherapy Social History Tobacco Use Types Packs/Day [...] Priority Date/Time Associated Diagnosis Comments PTH STAT 12/03/2015 11:06 AM EDT Kidney replaced by transplant Healthcare maintenance Need for prophylactic immunotherapy CMP W/FASTING GLUCOSE STAT 12/03/2015 11:06 AM EDT Kidney replaced by transplant Healthcare maintenance Need for prophylactic immunotherapy HEMOGRAM STAT 12/03/2015 11:06 AM EDT Kidney replaced by transplant Healthcare maintenance Need for prophylactic immunotherapy DIFFERENTIAL, AUTOMATED STAT 12/03/2015 11:06 AM EDT Kidney replaced by transplant Healthcare maintenance Need for prophylactic immunotherapy GOLD TUBE HOLD Routine 12/03/2015 11:06 AM EDT Kidney replaced by transplant Healthcare maintenance Need for prophylactic immunotherapy LAVENDER TUBE HOLD Routine 12/03/2015 11 :06 AM EDT Kidney replaced by transplant Healthcare maintenance Need for prophylactic immunotherapy TACROLIMUS LEVEL STAT 12/03/2015 11:0 6 AM EDT Kidney replaced by transplant Healthcare maintenance Need for prophylactic immunotherapy 1,25-DIHYDROXYCHOLEC ALCIFEROL STAT 12/03/2015 11:06 AM EDT Kidney replaced by transplant Healthcare maintenance Need for prophylactic immunotherapy VITAMIN D, 25-HYDROXY STAT 12/03/2015 11:06 AM EDT Kidney replaced by transplant Healthcare maintenance Need for prophylactic immunotherapy RETICULOCYTE COUNT STAT 12/03/2015 11 :06 AM EDT Kidney replaced by transplant Healthcare maintenance Need for prophylactic immunotherapy CBC (WITH DIFF) STAT 12/03/2015 11:06 AM EDT Kidney replaced by transplant Healthcare maintenance Need for prophylactic immunotherapy URIC ACID STAT 12/03/2015 11:06 AM EDT Kidney replaced by transplant Healthcare maintenance Need for prophylactic immunotherapy PHOSPHORUS STAT 12/03/2015 11:06 AM EDT Kidney replaced by transplant Healthcare maintenance Need for prophylactic immunotherapy MAGNESIUM STAT 12/03/2015 11:06 AM EDT Kidney replaced by transplant Healthcare maintenance Need for prophylactic immunotherapy HEMOGLOBIN A1C STAT 12/03/2015 11:06 AM EDT Kidney replaced by transplant Healthcare maintenance Need for prophylactic immunotherapy LIPID PANEL (REFLEX DIRECT LDL) STAT 12/03/2015 11:06 AM EDT Kidney replaced by transplant Healthcare maintenance Need for prophylactic immunotherapy documented in this encounter Results * (ABNORMAL) Differential, Automated (12/03/2015 11:06 AM EDT) Neutrophil % 77.8 % [facility] Neutrophil Absolute 3.40 1.50 - 6.30 x10(3)/ L [facility] Lymph % 12.8 % [facility] Lymphocytes Abs 0.6(L) 1.0 - 3.6 x10(3)/ L [facility] Monocyte % 7.8 % [facility] Monocyte Abs 0.3 0.2 - 1.0 x10(3)/[facility] Eos % 1.4 % [facility] Eosinophils Abs 0.1 0.0 - 0.5 x10(3)/[facility] Basophil % 0.2 % [facility] Baso Absolute 0.0 0.0 - 0.2 x10(3)/[facility] Immature Gran % 0.00 % [facility] Comment: Immature granulocytes(IG's)percentage and absolute count will include metamyelocytes, myelocytes, and promyelocytes. Blood smears from CBCs yielding IG's will be scanned manually for concordance. If this scan disagrees with the automated IG or if promyelocytes are noted, a manual differential will be performed. Immature Gran Absolute 0.00 0.00 - 0.05 x10(3)/ L [facility] Blood specimen (specimen) 12/03/2015 11:06 AM EDT 12/03/2015 11:16 AM EDT Narrative Resulting Agency Comment Spec In Lab Anup Hawkins MD HEMATOLOGY ORDERA BLES [facility] [place] [address] * (ABNORMAL) Hemogram (12/03/2015 11:06 AM EDT) White Blood Cell 4.4 4.0 - 10.0 x10(3)/mc L [facility] Red Blood Cell 3.00(L) 4.63 - 6.08 x10(6)/mc L [facility] Hemoglobin 8.8(L) 13.7 - 17.5 gm/dL [facility] Hematocrit 27.0(L) 40.0 - 51.0 % [facility] Mean Cell Volume 90.0 79.0 - 92.0 fL [facility] Mean Cell Hemoglobin 29.3 25.6 - 32.2 pg [facility] Mean Cell Hemoglobin Concentration 32.6 32.0 - 36.5 gm/dL [facility] Platelet 262 145 - 370 x10(3)/mc L [facility] RDW Standard Deviation 46.9(H) 35.0 - 46.0 fL [facility] RDW coefficient of variation 14.1 10.9 - 14.4 % [facility] Mean Platelet Volume 9.3 9.0 - 12.0 fL [facility] Blood specimen (specimen) 12/03/2015 11:06 AM EDT 12/03/2015 11:16 AM EDT Narrative Resulting Agency Comment Spec In Lab Anup Hawkins MD HEMATOLOGY ORDERA BLES Performing Organization Address City/State/[facility] Co de Phone Number [facility] [address] * (ABNORMAL) Hemoglobin A1c (12/03/2015 11:06 AM EDT) Hemoglobin A1c 5.9(H) 4.3 - 5.6 % [facility] Comment: Reference Range: 4.3 - [...] 36: Suppl. 1, S67-74 Estimated Average Glucose 123 mg/dL [facility] Comment: eAG equivalents for HbA1c percentages: HbA1c(%) ?eAG(mg/dL) 6.0 ?126 6.5 ?140 7.0 ?154 7.5 ?169 8.0 ?183 8.5 ?197 9.0 ?212 9.5 ?226 10.0 ? 240 Limitations: The eAG calculation has not been validated on women, individuals below 18 years old and above 70 years old, and individuals with hemoglobinopathies. Additional resources are available on the ADA website: http://Funxional Therapeuticsl.com/DHMCadacalc Rakesh GREWAL, Ashish J, Lizzette R, et al. ??Translating the A1C assay into estimated average glucose values. ??Diabetes Care 2008:31(8):4116-5950. Blood specimen (specimen) 12/03/2015 11:06 AM EDT 12/03/2015 11:16 AM EDT Narrative Resulting Agency Comment Spec In Lab Anup Hawkins MD CHEMISTRY ORDERAB LES [facility] [place] [address] * Lavender Tube HOLD (12/03/2015 11:06 AM EDT) Lavender Hold Sample in lab. [facility] Blood specimen (specimen) 12/03/2015 11:06 AM EDT 12/03/2015 11:16 AM EDT Anup Hawkins MD HEMATOLOGY ORDERA BLES Performing Organization Address [facility]/ZIP Co de Phone Number [facility] [place] [address] * Gold Tube HOLD (12/03/2015 11:06 AM EDT) Gold Hold Sample in lab. [facility] Blood specimen (specimen) 12/03/2015 11:06 AM EDT 12/03/2015 11:16 AM EDT Anup Hawkins MD CHEMISTRY ORDERAB LES Performing Organization Address [facility] Co de Phone Number [facility] [place] [address] * (ABNORMAL) VIT D Total Evaluation (12/03/2015 11:06 AM EDT) Vitamin D Total 25 OH 28(L) 30 - 100 ng/mL [facility] Comment: Deficient <10 ng/mL Insufficient 10 to 29 ng/mL Sufficient 30 to 100 ng/mL Potential Intoxication >100 ng/mL According to the [place] National Osteoporosis Foundation, Vitamin D concentrations >30 ng/mL are sufficient to protect bone health. ??The National Kidney Foundation has similarly stated that patients with Vitamin D concentrations <30ng/mL should be considered to be insufficient or deficient. http://Operax.PredictAd/DHMCnatlkidneyfoundation http://Selleration/DHMCVitD The IDS iSYS Vitamin D Immunoassay detects both 25-OH Vitamin D2 and 25-OH Vitamin D3, but only a total Vitamin D concentration is reported. Blood specimen (specimen) 12/03/2015 11:06 AM EDT 12/03/2015 11:16 AM EDT Narrative Resulting Agency Comment Spec In Lab Anup Hawkins MD CHEMISTRY ORDERAB LES Performing Organization Address [facility]/ZIP Co de Phone Number [facility] [place] [address] * 1,25-dihydroxycholecalciferol (12/03/2015 11:06 AM EDT) Vit D 1,25 Dihydroxy (NOVEMBER) 54 18 - 64 pg/mL [facility] Comment: Test Performed by: [address] [address] Lamination Inspector: Swapnil Torres II, M.D., Ph.D. Blood specimen (specimen) 12/03/2015 11:06 AM EDT 12/03/2015 2:15 PM EDT Narrative Resulting Agency Comment Spec In Lab Anup Hawkins MD LAB SEND OUT ORDE RABLES [facility] [place] [address] * PTH (12/03/2015 11:06 AM EDT) Parathyroid Hormone 57 15 - 65 pg/mL [facility] Blood specimen (specimen) 12/03/2015 11:06 AM EDT 12/03/2015 11:16 AM EDT Narrative Resulting Agency Comment Spec In Lab Anup Hawkins MD CHEMISTRY ORDERAB LES Performing Organization Address City/[facility]/ZIP Co de Phone Number [facility] [place] [address] * Tacrolimus level (12/03/2015 11:06 AM EDT) Tacrolimus 3.0 ng/mL [facility] Comment:Trough therapeutic: 5-15 ng/mL Blood specimen (specimen) 12/03/2015 11:06 AM EDT 12/03/2015 1:51 PM EDT Narrative Resulting Agency Comment Spec In Lab Anup Hawkins MD CHEMISTRY ORDERAB LES Performing Organization Address City/[facility]/ZIP Co de Phone Number [facility] [place] [address] * Uric acid (12/03/2015 11:06 AM EDT) Uric Acid 4.8 3.5 - 8.5 mg/dL [facility] Blood specimen (specimen) 12/03/2015 11:06 AM EDT 12/03/2015 11:16 AM EDT Narrative Resulting Agency Comment Spec In Lab Anup Hawkins MD CHEMISTRY ORDERAB LES Performing Organization Address City/[facility]/ZIP Co de Phone Number [facility] [place] [address] * Phosphorus (12/03/2015 11:06 AM EDT) Pathologist [facility] Phosphorus 3.3 2.5 - 4.5 mg/dL [facility] Blood specimen (specimen) 12/03/2015 11:06 AM EDT 12/03/2015 11:16 AM EDT Narrative Resulting Agency Comment Spec In Lab Anup Hawkins MD CHEMISTRY ORDERAB LES Performing Organization Address [facility]/ZIP Co de Phone Number [facility] [address] * (ABNORMAL) Magnesium (12/03/2015 11:06 AM EDT) [facility] Magnesium 0.66(L) 0.69 - 1.07 mmol/L [facility] Blood specimen (specimen) 12/03/2015 11:06 AM EDT 12/03/2015 11:16 AM EDT Narrative Resulting Agency Comment Spec In Lab Anup Hawkins MD CHEMISTRY ORDERAB LES Performing Organization Address City/[facility]/ZIP Co de Phone Number [facility] [place] [address] * (ABNORMAL) Lipid panel (fasting) (12/03/2015 11:06 AM EDT) Cholesterol, Total 80 <=199 mg/dL [facility] Comment: Recommendations of the NCEP Adult Treatment Panel for the following risk cutoff thresholds for the [place] population: Desirable: <200 mg/dL Borderline High: 200-239 mg/dL High: > or = 240 mg/dL Triglyceride 51 <=149 mg/dL [facility] Comment: Reference Range: Normal triglycerides: ??<150 mg/dL Borderline high: ??150-199 mg/dL High: ??200-499 mg/dL Very high: ??>lu=834 mg/dL RAYMOND 2001; 285(19):5462-1484 HDL Cholesterol 25(L) >=40 mg/dL [facility] Comment: Reference range: ??Low HDL: ?? < 40 mg/dL ??Normal: ?40-60 mg/dL ??Desirable: > 60 mg/dL RAYMOND 2001; 285(19):6003-6434 LDL Cholesterol 45 <=99 mg/dL [facility] Comment: Reference range: ?? Optimal: ?<100 mg/dL ?? Near Optimal/Above Optimal: ?? 100-129 mg/dL ?? Borderline high: ?130-159 mg/dL ?? High: ? 160-189 mg/dL ?? Very high: ?>go=706 mg/dL RAYMOND 2001: 285(19):6161-5919 Cholesterol/HDL Ratio 3.2 ratio [facility] Comment: A Cholesterol to HDL ratio below 4:1 is desirable. ??Studies suggest that increased CAD risk occurs at ratios above 5 for females and above 6 for men. ? [place] Heart Association ??(http://www.americanheart.org) ? Marizol Int Med, 1994; 121:641 ? AM J Med, 1998; 105(1A):48S Blood specimen (specimen) 12/03/2015 11:06 AM EDT 12/03/2015 11:16 AM EDT Narrative Resulting Agency Comment Spec In Lab Anup Hawkins MD CHEMISTRY ORDERAB LES Performing Organization Address [facility] Co de Phone Number [facility] [place] [address] * (ABNORMAL) Reticulocyte Count (12/03/2015 11:06 AM EDT) Reticulocyte % 0.9 0.5 - 2.4 % [facility] Retic Abs # 0.030 0.027 - 0.095 x10(6)/mcL [facility] Immature Retic% 2.2(L) 2.3 - 15.9 % [facility] Reticulated Hgb 31.4 28.5 - 38.9 pg [facility] Immature Plt % 1.2 0.0 - 7.4 % [facility] Blood specimen (specimen) 12/03/2015 11:06 AM EDT 12/03/2015 11:16 AM EDT Narrative Resulting Agency Comment Spec In Lab Anup Hawkins MD HEMATOLOGY ORDERA BLES Performing Organization Address [facility] Co de Phone Number [facility] [place] [address] * (ABNORMAL) CMP w/fasting Glucose (12/03/2015 11:06 AM EDT) Glucose Fasting 96 65 - 99 mg/dL [facility] Comment: ?Fasting* Glucose Interpretive [...] of Diabetes Mellitus, Position Statement from the [place] Diabetes Association. ??Diabetes Care, Volume 33, Supplement 1, Jul 2009 Blood Urea Nitrogen 42(H) 10 - 20 mg/dL [facility] Creatinine 2.25(H) 0.80 - 1.50 mg/dL [facility] Comment: Please note that the pediatric reference intervals supplied above were not validated at [facility]. Results from pediatric patients should be interpreted in conjunction to the patient's age, height and muscle mass. Sodium 142 135 - 145 mmol/L [facility] Potassium 5.3(H) 3.5 - 5.0 mmol/L [facility] Comment: Please note: ??Patients with WBC >100,000 may have falsely elevated Potassium levels. ??For accurate Potassium quantification in these patients send serum separator tube (gold top) for subsequent determinations. ??Contact the Clinical Chemistry Laboratory if there are any questions. Chloride 110(H) 98 - 107 mmol/L [facility] Carbon Dioxide 17(L) 22 - 31 mmol/L [facility] Anion Gap 15 5 - 15 mmol/L [facility] Calcium 8.3(L) 8.5 - 10.5 mg/dL [facility] Protein, Total 6.3 6.1 - 8.0 gm/dL [facility] Albumin 4.0 3.2 - 5.2 gm/dL [facility] Aspartate Aminotransferase 17 0 - 39 unit/L [facility] Alanine Aminotransferase 12 0 - 55 unit/L [facility] Alkaline Phosphatase 138(H) 40 - 120 unit/L [facility] Bilirubin, Total 0.3 0.2 - 1.3 mg/dL [facility] Bilirubin, Direct 0.1 0.0 - 0.3 mg/dL [facility] Est Glomerular Filtration Rate 31(L) >=60 [facility] Comment: This estimated GFR (eGFR) [...] the following links into your internet browser. http://Selleration/DHnkdep [email or web address]://Selleration/DHMCnkf Blood specimen (specimen) 12/03/2015 11:06 AM EDT 12/03/2015 11:16 AM EDT Narrative Resulting Agency Comment Spec In Lab Anup Hawkins MD CHEMISTRY ORDERAB LES [facility] [place] [address] documented in this encounter Visit Diagnoses Diagnosis Kidney replaced by transplant Healthcare maintenance Routine general medical examination at a health care facility Need for prophylactic immunotherapy documented in this encounter Care Teams Landscape Engineer Relationship Specialty Start Date End Date Carroll Fuentes DO [address] [place] [address] [address] [place] [address] PCP - General 09/23/11 10/20/22 documented as of this encounter
--- OUTSIDE RECORDS SUMMARY | 2024-04-22 11:13 | XMS_ITS | Encounter Summary ---
Author Organization [facility] Address [facility] [place] [address] Care Team Providers Care Pan Pusher Name Role Phone AlfredoCarroll allison Primary Care Provider [phone] Encounter Details Date Type Department Care Team (Latest Contact Info) Description 11/08/2015 12:30 PM EDT - 11/08/2015 11:59 PM EDT Hospital [place] [phone] Matheus [place] A-V fistula Discharge Disposition: Home Social History Tobacco Use [...] once daily 90 tablet 3 12/24/2014 12/12/2015 calcium acetate (PHOSLO) 667 mg Capsule Take [...] Associated Diagnosis Comments AVF/ESTABLISHED ACCESS EVALUATION Routine 11/08/2015 12:34 PM EDT A-V fistula TACROLIMUS LEVEL Routine 11/08/2015 10:1 9 AM EDT documented in this encounter Results * AVF/Established Access Evaluation (11/08/2015 12:34 PM EDT) VB Text Report Department: Vascular Surgery Lab Patient: [id number] (ARNOL, CHRISTY) CPT: 97154 ICD10: I77.0 Referring Physician: STEPHANIE IRELAND ?? [...] Stephanie Ireland MD VASCULAR ORDER KELLY VASCUBASE * Tacrolimus level (11/08/2015 10:19 AM EDT) Tacrolimus 8.2 ng/mL [facility] Comment:Trough therapeutic: 5-15 ng/mL Blood specimen (specimen) Venous Draw / Unknown 11/08/2015 10:19 AM EDT 11/11/2015 7:57 AM EDT Narrative Resulting Agency Comment Spec In Lab Anup Hawkins MD CHEMISTRY ORDERAB LES [facility] [place] [address] documented in this encounter Visit Diagnoses Diagnosis A-V fistula Arteriovenous fistula, acquired documented in this encounter Care Teams Pan Pusher Relationship Specialty Start Date End Date Carroll Fuentes DO [address] [place] [address] PCP - General 09/23/11 10/20/22 documented as of this encounter
--- OUTSIDE RECORDS SUMMARY | 2024-04-22 11:13 | XMS_ITS | Encounter Summary ---
Author Organization [facility] Address [facility] [place] [address] Care Team Providers Care House Father Name Role Phone AlfredoCarroll allison Primary Care Provider [phone] Encounter Details Date Type Department Care Team (Late st Contact Info) Description 12/03/2015 11:30 AM EDT Office Visit [place] [address] Stephanie Ireland MD [facility] [place] [address] A-V fistula Social History Tobacco Use Types [...] as of this encounter Progress Notes * Stephanie Ireland MD - 12/14/2015 12:51 PM EDT Follow-Up: Transplant Clinic Date: 12/14/2015 Patient: Adama Ram Date of Transplant: 11/26/2002 (Kidney) Transplant Surgeon: History of Present Illness: Mr. Ram is a 55-yo male with a history of ESRD who had a left snuffbox radiocephalic av fistula placed prior to his kidney transplant operation. He has intact renal allograft function and was interested in ligation and excision of his left radiocephalic av fistula following a blunt traumatic injury to the site last month. The procedure was performed on 11/20/15 and he returned for a routine followup appointment. He had no issues following the procedure and had no complaints in the clinic. His wound healed without complications, no contusions or hematomata. He has not developed pain, numbness, paresthesias orskin color changes in the ipsilateral left hand following the procedure. No fevers or rigors. Current Meds: Current Outpatient Prescriptions Medication Sig Dispense Refill ??? losartan (COZAAR) 25 mg Tablet take 1 tablet by mouth once daily 90 tablet 3 ??? hydrALAZINE (APRESOLINE) 50 mg Tablet take 1 tablet by mouth twice a day 180 tablet 3 ??? calciTRIol (ROCALTROL) 0.5 mcg Capsule Take 1 capsule by mouth daily. 30 capsule 11 ??? levETIRAcetam (KEPPRA) 500 mg Tablet take 1 tablet by mouth every morning and 2 tablets by mouth every evening 90 tablet 0 ??? PROGRAF 1 mg Capsule Take 1 capsule by mouth 2 times daily. Kidney replaced by transplant 11/26/2002. Z94.0 60 capsule 6 ??? allopurinol (ZYLOPRIM) 100 mg Tablet Take 1.5 tablets by mouth daily. Indications: Gout 45 tablet 5 ??? mycophenolate (CELLCEPT) 250 mg Capsule Take 3 capsules by mouth 2 times daily. Kidney Transplant V42.0. Transplant Date; 11-26-02 180 capsule 4 ??? DILTiazem (DILACOR XR) 120 mg Capsule, [...] No current facility-administered medications for this visit. Problem List: Patient Active Problem List Diagnosis [...] ??? Varicose veins of lower extremities I83.93 Past Medical History: Past Medical History Diagnosis Date ??? BP (high blood pressure) ??? DVT (deep venous thrombosis) ??? Gout ??? Hypertension ??? Kidney problem ??? Pneumonia ??? TBI (traumatic brain injury) 1979 Past Surgical History: Past Surgical History Procedure Laterality Date ??? Created by interface Entered not Verified Procedure Date: 09/19/2010 ??? Kidney transplant KIDNEY TRANSPLANT / RECIPIENT/LT Procedure Date: 11/26/2002 ??? Us renal transplant biopsy 12/31/2010 ??? Pro repair intermediate s/a/t/e 2.6-7.5 cm 04/19/2012 REPAIR INTERMEDIATE WOUND, (NO HANDS OR FEET) 2.6 TO 7.5CM, UPPER EXTREMITY performed by SABRINA SANCHEZ at [facility] MA[facility] OR ? ? Pro exc skin malig >4cm trunk, arm, leg 04/19/2012 EXC MALIGNANT LESION, MICHAEL > 4.0CM, TRUNK performed by SABRINA SANCHEZ at [facility] MA[facility] OR ??? Pro vascular surgery procedure unlist Left 11/20/2015 LIGATION\REPAIR AV FISTULA performed by Stephanie Ireland MD at [facility] MAIN OR ??? Pro vascular surgery procedure unlist Left 11/20/2015 EXCISION VEIN FROM HAND performed by Stephanie Ireland MD at [facility] MA[facility] OR Family History: No family history on file. Social History: History Substance Use Topics ??? Smoking status: Former Smoker Packs/day: 0.25 Years: 1.50 Types: Cigarettes Quit date: 12/03/2000 ??? Smokeless tobacco: Former User Quit date: 04/14/2001 ??? Alcohol use: No ROS: Review of Systems Constitutional: Negative for chills and fever. All other systems reviewed and are negative. Vital Signs: There were no vitals taken for this visit. Physical Exam: Objective: Vital signs (most recent): There were no vitals taken for this visit. General appearance: Comfortable, well-appearing, in no acute distress and not in pain. Lungs: Normal respiratory rate and normal effort. Extremities: (The left forearm wound is clean and intact. There is no evidence of surrounding cellulitis or drainage from the wound. No contusions or hematomata. The left hand is pink and warm with no evidence of ischemia. Capillary refill time < 2 sec in the digits of the left hand.). Drain: No Labs: Lab Results Component Value Date CREATININE 2.25 (H) 12/03/2015 K 5.3 (H) 12/03/2015 GLUCOSE 99 11/21/2015 HCT 27.0 (L) 12/03/2015 HGB 8.8 (L) 12/03/2015 WBC 4.4 12/03/2015 PHOS 3.3 12/03/2015 Assessment: Mr. Ram is doing well following the excision of the left cephalic vein, a very large dilated vein associated with his left snuffbox radiocephalic av fistula. The wound is healing without complications and he has had no issues following the procedure. He will continue to limit his acitivities to those that require weight bearing < 10 lbs with the arm for at least 4 weeks following the operation. He is pleased with the result. Followup in my clinic prn for any additional surgical issues that arise. MD: STEPHANIE IRELAND MD documented in this encounter Plan of Treatment Not on file documented as of this encounter Visit Diagnoses Diagnosis A-V fistula Arteriovenous fistula, acquired documented in this encounter Care Teams House Father Relationship Specialty Start Date End Date Carroll Fuentes DO [address] [place], [place] [address]Y [facility] [address] [place] [address] PCP - General 09/23/11 10/20/22 documented as of this encounter
--- OUTSIDE RECORDS SUMMARY | 2024-04-22 11:13 | XMS_ITS | Encounter Summary ---
Author Organization [facility] Address [facility] [place] [address] Care Team Providers Care Dice Manager Name Role Phone AlfredoCarroll allison Primary Care Provider [phone] Encounter Details Date Type Department Care Team (Late st Contact Info) Description 11/21/2015 4:00 PM EDT Office [place] [address] Alfonzo Miles MD [facility] [place] [address] Partial symptomatic epilepsy with complex partial seizures, [...] Sign Reading Time Taken Comments Blood Pressure 116/80 11/21/2015 3:47 PM EDT Pulse 78 11/21/2015 3:47 PM EDT Temperature - - Respiratory Rate - - Oxygen Saturation - - Inhaled Oxygen Concentration - - Weight 79.4 kg (175 lb) 11/21/2015 3:47 PM EDT Height 177.8 cm (5' 10) 11/21/2015 3:47 PM EDT Body Mass Index 25.11 11/21/2015 3:47 PM EDT documented in this encounter Patient Instructions * Patient Instructions* Alfonzo Miles MD - 11/21/2015 4:49 PM EDT I think you're doing about the same neurologically. Seizures appear to be controlled. You need to stay on Keppra. Please get blood tests done today. Depending on the numbers we may need to adjust your dose of Keppra. You have a follow-up appointment in a few days with Dr. Hawkins. I will try to arrange for you macarena seen by the ear nose throat doctors to look at the lesion on the side of your face. I think it would need surgery I would like to see you in any case in a year or sooner if any problems arise. Alfonzo Miles MD Department of Neurology [address] [address], [place] [address] Pager: [phone], #[phone] Email: [email or web address] documented in this encounter Progress Notes * Alfonzo Miles MD - 11/21/2015 4:18 PM EDT Neurology clinic note Chief Complaint: [...] His last seizure was several years ago. He continues to work at various jobs. 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 His renal function has shown a gradual decline.. He is being followed by Dr. Hawkins who will seehim in a couple of weeks. He recently had surgery to close and enlarged dialysis fistula. He describes a gradually worsening lesion on his left cheek and jaw. Social history: He continues to work full-time. He lives alone. PMH: Patient Active Problem List Diagnoses Code ??? Epilepsy 345.90 ??? End stage renal disease 585.6 ??? Gout 274.9 ??? Hypertension 401.9 ??? Left leg DVT 453.40 ??? Kidney replaced by transplant V42.0 ??? IgA nephropathy 583.9 ??? BCC (basal cell carcinoma of skin) 173.91 Review of systems: He eats and sleeps all right. Bowel and bladder function are normal. Physical Exam: BP 116/80 mmHg Pulse 78 Ht 177.8 cm (5' 10) Wt 79.379 kg (175 lb) BMI 25.11 kg/m2 Head, eyes, ears, nose and throat were normal, except that at the angle of the left jaw and involving the ear lobe that appears to be a large fungating erythematous partially raised lesion that showssome central necrosis and exudate. Heart and lungs were normal. His left arm is bandaged. He had surgery for the closure of the fistula. I did not undo the bandagebut spoke with Dr. Ireland who did the surgery who recommended leaving it on for another 24 hours.I advised the patient of this He is mentally at baseline, with borderline cognitive slowing. Speech was normal. His mood was good. He never complains of anything Cranial nerves were normal. His strength was normal. Reflexes were somewhat hypoactive, which is his baseline. He has a mild distal neuropathy. His gait was stable. Medications: Current Outpatient Prescriptions Medication Sig Dispense Refill ??? ciprofloxacin (CIPRO) 100 mg Tablet Take 100 mg by mouth 2 times daily. ??? oxyCODONE (ROXICODONE) 5 mg Tablet Take 1-2 tablets by mouth every 4 hours as needed for Pain. 30 tablet 0 ??? calciTRIol (ROCALTROL) 0.5 mcg Capsule Take [...] daily (with meals). 90 capsule 11 ??? DILTiazem (DILACOR XR) 120 mg Capsule, [...] facility-administered medications for this visit. Lab Studies: Orders Placed This Encounter Procedures ??? Hepatic Function Panel ??? Basic Metabolic Panel (non-fasting) ??? CBC (with Diff) ??? Levetiracetam level ??? Hemogram ??? Differential, Automated ??? Basic Metabolic Panel (non-fasting) Impression: The patient is doing quite well neurologically. He has posttraumatic epilepsy. Seizures are fully controlled. I think he should stay on Keppra indefinitely. I note that his level has gradually risen over the years, possibly because of a slight decline in renal function. I reduced his dose 2 years ago. I'm checking screening laboratory studies and a Keppra level today. He has follow-up with nephrology and transplant surgery in 2 weeks to review the status of his renal graft, and the recent surgery to close the dialysis fistula. I spoke with Dr. Ireland with regardto wound care today, as noted above. I am concerned about the lesion on his jaw. I think this may be a necrotic skin cancer, or possiblya cutaneous fungal infection. It has been there a long time so I do not think it constitutes an emergency. I discussed this with Dr. Ireland also. Referral to ENT seems appropriate, and I will arrange for this as soon as possible. It may be possible to coordinate this with his follow-up visit in 2weeks. Thank you for this consultation. I will see him back in a year or sooner if necessary. Alfonzo Miles MD Department [place] [address] Pager: [phone], #[phone] Email: [email or web address] cc: CHASE FUENTES DO Dr. Beka Moreno documented in this encounter Plan of Treatment Not on file documented as of this encounter Procedures Procedure Name Priority Date/Time Associated Diagnosis Comments HEMOGRAM Routine 11/21/2015 5:13 PM EDT Partial symptomatic epilepsy with complex partial seizures, not intractable, without status epilepticus DIFFERENTIAL, AUTOMATED Routine 11/21/2015 5:13 PM EDT Partial symptomatic epilepsy with complex partial seizures, not intractable, without status epilepticus LEVETIRACETAM LEVEL Routine 11/21/2015 5 :13 PM EDT Partial symptomatic epilepsy with complex partial seizures, not intractable, without status epilepticus CBC (WITH DIFF) Routine 11/21/2015 5:13 PM EDT Partial symptomatic epilepsy with complex partial seizures, not intractable, without status epilepticus HEPATIC FUNCTION PANEL Routine 6 5:13 PM EDT Partial symptomatic epilepsy with complex partial seizures, not intractable, without status epilepticus BASIC METABOLIC PANEL Routine 11/21/2015 5:13 PM EDT documented in this encounter Results * (ABNORMAL) Basic Metabolic Panel (non-fasting) (11/21/2015 5:13 PM EDT) Glucose 99 65 - 199 mg/dL [facility] Comment:Diabetes: >=200 mg/d L plus symptoms Blood Urea Nitrogen 50(H) 10 - 20 mg/dL [facility] Creatinine 3.04(H) 0.80 - 1.50 mg/dL [facility] Comment: Please note that the pediatric reference intervals supplied above were not validated at [facility]. Results from pediatric patients should be interpreted in conjunction to the patient's age, height and muscle mass. Sodium 140 135 - 145 mmol/L [facility] Potassium 4.2 3.5 - 5.0 mmol/L [facility] Comment: Please note: ??Patients with WBC >100,000 may have falsely elevated Potassium levels. ??For accurate Potassium quantification in these patients send serum separator tube (gold top) for subsequent determinations. ??Contact the Clinical Chemistry Laboratory if there are any questions. Chloride 110(H) 98 - 107 mmol/L [facility] Carbon Dioxide 16(L) 22 - 31 mmol/L [facility] Anion Gap 14 5 - 15 mmol/L [facility] Calcium 8.1(L) 8.5 - 10.5 mg/dL [facility] Est Glomerular Filtration Rate 22(L) >=60 [facility] Comment: This [...] the following links into your internet browser. [email or web address] Blood specimen (specimen) Venous Draw / Unknown 11/21/2015 5:13 PM EDT 11/21/2015 5:21 PM EDT Narrative Resulting Agency Comment Spec In Lab Alfonzo Miles MD CHEMISTRY ORDERABLES [facility] [place] [address] * (ABNORMAL) Differential, Automated (11/21/2015 5:13 PM EDT) Neutrophil % 80.4 % [facility] Neutrophil Absolute 5.88 1.50 - 6.30 x10(3)/mc L [facility] Lymph % 10.6 % [facility] Lymphocytes Abs 0.8(L) 1.0 - 3.6 x10(3)/ L [facility] Monocyte % 8.0 % [facility] Monocyte Abs 0.6 0.2 - 1.0 x10(3)/mc L [facility] Eos % 0.8 % [facility] Eosinophils Abs 0.1 0.0 - 0.5 x10(3)/mc L [facility] Basophil % 0.1 % [facility] Baso Absolute 0.0 0.0 - 0.2 x10(3)/mc L [facility] Immature Gran % 0.10 % [facility] Comment: Immature granulocytes(IG's)percentage and absolute count will include metamyelocytes, myelocytes, and promyelocytes. Blood smears from CBCs yielding IG's will be scanned manually for concordance. If this scan disagrees with the automated IG or if promyelocytes are noted, a manual differential will be performed. Immature Gran Absolute 0.01 0.00 - 0.05 x10(3)/mc L [facility] Blood specimen (specimen) 11/21/2015 5:13 PM EDT 11/21/2015 5:21 PM EDT Narrative Resulting Agency Comment Spec In Lab Alfonzo Miles MD HEMATOLOGY ORDERABLE S [facility] [place] [address] * (ABNORMAL) Hemogram (11/21/2015 5:13 PM EDT) White Blood Cell 7.3 4.0 - 10.0 x10(3)/mc L [facility] Red Blood Cell 3.05(L) 4.63 - 6.08 x10(6)/mc L [facility] Hemoglobin 8.9(L) 13.7 - 17.5 gm/dL [facility] Hematocrit 26.9(L) 40.0 - 51.0 % [facility] Mean Cell Volume 88.2 79.0 - 92.0 fL [facility] Mean Cell Hemoglobin 29.2 25.6 - 32.2 pg [facility] Mean Cell Hemoglobin Concentration 33.1 32.0 - 36.5 gm/dL [facility] Platelet 184 145 - 370 x10(3)/mc L [facility] RDW Standard Deviation 47.8(H) 35.0 - 46.0 fL [facility] RDW coefficient of variation 14.9(H) 10.9 - 14.4 % [facility] Mean Platelet Volume 10.1 9.0 - 12.0 fL [facility] Blood specimen (specimen) 11/21/2015 5:13 PM EDT 11/21/2015 5:21 PM EDT Narrative Resulting Agency Comment Spec In Lab Alfonzo Miles MD HEMATOLOGY ORDERABLE S [facility] [place] [address] * Levetiracetam level (11/21/2015 5:13 PM EDT) Pathologist [facility] Levetiracetam Lvl (NOVEMBER) 33.6 12.0 - 46.0 mcg/mL [facility] Comment: Test Performed by: [place] [address] Taxi Proprietor: Christal Rodriguez, Ph.D. Blood specimen (specimen) 11/21/2015 5:13 PM EDT 11/22/2015 8:25 AM EDT Narrative Resulting Agency Comment Spec In Lab Alfonzo Miles MD LAB SEND OUT ORDERAB LES Performing Organization Address City/[facility]/ZIP Co de Phone Number [facility] [place] [address] * Hepatic Function Panel (11/21/2015 5:13 PM EDT) [facility] Protein, Total 6.2 6.1 - 8.0 gm/dL [facility] Albumin 4.0 3.2 - 5.2 gm/dL [facility] Aspartate Aminotransferase 20 0 - 39 unit/L [facility] Alanine Aminotransferase 11 0 - 55 unit/L [facility] Alkaline Phosphatase 89 40 - 120 unit/L [facility] Bilirubin, Total 0.4 0.2 - 1.3 mg/dL [facility] Bilirubin, Direct 0.1 0.0 - 0.3 mg/dL [facility] Blood specimen (specimen) 11/21/2015 5:13 PM EDT 11/21/2015 5:21 PM EDT Narrative Resulting Agency Comment Spec In Lab Alfonzo Miles MD CHEMISTRY ORDERABLES Performing Organization Address [facility] Co de Phone Number [facility] [place] [address] documented in this encounter Visit Diagnoses Diagnosis Partial symptomatic epilepsy with complex partial seizures, not intractable, without status epilepticus documented in this encounter Care Teams Dice Manager Relationship Specialty Start Date End Date Carroll Fuentes DO [address] [place] [address] [address] [place] [address] PCP - General 09/23/11 10/20/22 documented as of this encounter
--- OUTSIDE RECORDS SUMMARY | 2024-04-22 11:13 | XMS_ITS | Encounter Summary ---
Author Organization [facility] [place] [address] Care Team Providers Care Medical Billing Representative Name Role Phone Carroll Fuentes DO Primary Care Provider [phone] Encounter Details Date Type Department Care Team (Late st Contact Info) Description 12/18/2015 Orders [place] [address] Miguel Angel Moreno MD [facility] [place] [address] Skin cancer Social History Tobacco Use Types Packs/Day Years [...] Procedure Name Priority Date/Time Associated Diagnosis Comments EXC MALIGNANT LESION, 3.1 TO 4.0CM, FACE Routine 12/18/2015 8:38 PM EDT Skin cancer documented in this encounter Visit Diagnoses Diagnosis Skin cancer Unspecified malignant neoplasm of skin, site unspecified documented in this encounter Care Teams Medical Billing Representative Relationship Specialty Start Date End Date Carroll Fuentes DO [address] [place] [address] PCP - General 09/23/11 10/20/22 documented as of this encounter
--- OUTSIDE RECORDS SUMMARY | 2024-04-22 11:13 | XMS_ITS | Encounter Summary ---
Author Organization [facility] Address [facility] [place] [address] Care Team Providers Care Lockstitch Pocket Setter Name Role Phone AlfredoCarroll allison Primary Care Provider [phone] Encounter Details Date Type Department Care Team (Latest Contact Info) Description 11/07/2015 7:38 PM EDT - 11/07/2015 11:59 PM EDT Hospital En[place] [address] Discharge Disposition: Home Social History Tobacco Use [...] on filedocumented in this encounter Care Teams Lockstitch Pocket Setter Relationship Specialty Start Date End Date Carroll Fuentes DO [address] [place] [address] PCP - General 09/23/11 10/20/22 documented as of this encounter
--- OUTSIDE RECORDS SUMMARY | 2024-04-22 11:13 | XMS_ITS | Encounter Summary ---
Author Organization [facility] Address [facility] [place] [address] Care Team Providers Care Blow Pit Operator Name Role Phone Carroll Fuentes DO Primary Care Provider [phone] Reason for Visit * Reason Comments Medication Refill Encounter Details Date Type Department Care Team (Late st Contact Info) Description 12/05/2015 Refill [place] [address] Anup Hawkins MD [facility] [place] [address] Social History Tobacco Use Types Packs/Day Years [...] on filedocumented in this encounter Care Teams Blow Pit Operator Relationship Specialty Start Date End Date Carroll Fuentes DO [address] [place] [address] PCP - General 3/14/12 4/11/23 documented as of this encounter
--- OUTSIDE RECORDS SUMMARY | 2024-04-22 11:13 | XMS_ITS | Encounter Summary ---
Author Organization [facility] [place] [address] Care Team Providers Care Manager Delivery Name Role Phone AlfredoCarroll allison Primary Care Provider [phone] Encounter Details Date Type Department Care Team (Late st Contact Info) Description 09/04/2015 Telephone [place] [address] Autumn Burgos, RN Social History Tobacco Use [...] Telephone Encounter - Autumn Burgos LPN - 09/04/2015 1:33 PM EST Pt called in concerned with symptoms. Pt states he has had a fever since Wednesday, is feeling run down and just not himself. No other specific symptoms no cough or runny nose. I recommended pt check in with his PCP for further evaluation. Pt in agreement with plan will call back with any further questions or concerns. Autumn Burgos LPN Solid Organ Transplant documented in this encounter Plan of Treatment Not on file documented as of this encounter Visit Diagnoses Not on filedocumented in this encounter Care Teams Manager Delivery Relationship Specialty Start Date End Date Carroll Fuentes DO [address] [place] [address] PCP - General 09/23/11 10/20/22 documented as of this encounter
--- OUTSIDE RECORDS SUMMARY | 2024-04-22 11:13 | XMS_ITS | Encounter Summary ---
Author Organization [facility] Address [facility] [place] [address] Care Team Providers Care Wood Mechanist Name Role Phone AlfredoCarroll allison Primary Care Provider [phone] Encounter Details Date Type Department Care Team (Latest Contact Info) Description 01/01/2015 8:01 PM EDT - 01/01/2015 11:59 PM EDT Hospital [place] [address] [facility] [place] [place] [address] Discharge Disposition: Home Social History Tobacco Use [...] Date/Time Associated Diagnosis Comments TACROLIMUS LEVEL Routine 01/01/2015 2:30 PM EDT documented in this encounter Results * Tacrolimus level (01/01/2015 2:30 PM EDT) Tacrolimus 4.6 ng/mL CERNER MILLENNIUM Comment:Trough therapeutic: 5-15 ng/mL Blood specimen (specimen) Venous Draw / Unknown 01/01/2015 2:30 PM EDT 01/03/2015 8:06 AM EDT Narrative Resulting Agency Comment Spec In Lab Anup Hawkins MD [facility] [place] documented in this encounter Visit Diagnoses Not on filedocumented in this encounter Care Teams Wood Mechanist Relationship Specialty Start Date End Date Carroll Fuentes DO [address] [place] [address] PCP - General 09/23/11 10/20/22 documented as of this encounter
--- OUTSIDE RECORDS SUMMARY | 2024-04-22 11:13 | XMS_ITS | Encounter Summary ---
Author Organization [facility] Address [facility] [place] [address] Care Team Providers Care General Contractor Name Role Phone Carroll Fuentes DO Primary Care Provider [phone] Reason for Visit * Reason Comments Medication Refill Encounter Details Date Type Department Care Team (Late st Contact Info) Description 10/24/2015 Refill [place] [address] Alfonzo Miles MD [facility] [place] [address] Social History Tobacco Use Types Packs/Day Years [...] on filedocumented in this encounter Care Teams General Contractor Relationship Specialty Start Date End Date Carroll Fuentes DO [address] [place] [address] PCP - General 09/23/11 10/20/22 documented as of this encounter
--- OUTSIDE RECORDS SUMMARY | 2024-04-22 11:13 | XMS_ITS | Encounter Summary ---
Author Organization [facility] Address [facility] [place] [address] Care Team Providers Care Stiff Leg Derrick Operator Name Role Phone Carroll Fuentes DO Primary Care Provider [phone] Reason for Visit * Reason Comments Medication Refill Encounter Details Date Type Department Care Team (Late st Contact Info) Description 08/19/2015 [place] [address] Alfonzo Miles MD [facility] [place] [address] Social History Tobacco Use Types Packs/Day Years [...] on filedocumented in this encounter Care Teams Stiff Leg Derrick Operator Relationship Specialty Start Date End Date Carroll Fuentes DO [address] [place] [address] PCP - General 09/23/11 10/20/22 documented as of this encounter
--- OUTSIDE RECORDS SUMMARY | 2024-04-22 11:13 | XMS_ITS | Encounter Summary ---
Author Organization [facility] [place] [address] Care Team Providers Care Branch Billing Payroll Clerk Name Role Phone AlfredoCarroll allison Primary Care Provider [phone] Reason for Visit * Auth/Cert Specialty Diagnoses / Procedures Referred By Shashi ko Referred To Contact Diagnoses ESRD Procedures PRO VASCULAR SURGERY PROCEDURE UNLIST LIGATION\REPAIR AV FISTULA Referral ID Status Reason Start Date Expiration Date Visits Re quested Visits Authorized [id number] 1 1 Encounter Details Date Type Department Care Team (Late st Contact Info) Description 11/20/2015 7:25 AM EDT Anesthesia Event [place] [address] Vivienne Naylor MD [facility] [place] [address] Cally Olson, PACKER SAUSAGE AND WIENER [address] [facility] [address]B-1 [place] [address] Anesthesia Record Procedure Summary Procedure Name Responsible Anesthesiologist Anesthesia Start Time Anesthesia Stop Time LIGATION\REPAIR AV FISTULA (WRVU 13.24) (Left: Arm) Vivienne Naylor MD 11/20/15 0725 11/20/15 0942 Events Date Time Event Comment 11/20/2015 0711 0725 Start 0729 AN Verify 0729 An Start Data 0739 Anesthesia Ready 0800 Procedure Start 0928 Procedure Stop 0936 an stop data 0942 Recovery or ICU Handoff Randa ent care was transferred to the destination unit staff after review of the patient's medical history, current anesthetic/surgical status and plan, according to the Provider Handoff Checklist. 0942 Stop Meds Name Total Midazolam 2 mg IV Lidocaine 50 mg Propofol 200 mg Propofol INF 782.09 mg ceFAZolin (ANCEF) 2g in dextrose 5% 50 m L 2 g Lactated Ringers 300 mL * Agents Name O2 Air * Blood No blood administrations on file. Lines, Drains, and Airways Type Details Placement Removal Incision 04/19/12; shoulder; 02/05/16; 1050 04/19/12 0000 by Nitza Hammer RN 02/05/16 1050 by Gricelda Sandoval RN Incision 11/20/15; arm; vertical; 02/05/16; 1050 11/20/15 0000 by Jerel Jacobsen RN 02/05/16 1050 by Gricelda Sandoval, SAVANNA (RETIRED) Peripheral IV Line - Single Lumen 11/20/15; 0644; cephalic vein right (lateral side of arm); [id number] catheter system; 18 gauge; distraction, intradermal injection, tolerated well, appears comfortable; 11/20/15; 1045 11/20/15 0644 by Margarette Simmons RN 11/20/15 1045 by Maria De Jesus Rodrigues RN documented in this encounter Social History [...] OR Notes * Anesthesia Postprocedure Evaluation - Nelson Thornton - 11/20/2015 1:30 PM EDT [facility] Department of Anesthesiology Post-procedure Note Patient: Adama Ram Procedure Summary Date Anesthesia Start Anesthesia Stop Room / Location 11/20/15 0725 0942 [facility] OR [facility] MAIN OR Procedure Diagnosis Surgeon Responsible Provider LIGATION\REPAIR AV FISTULA (Left Arm); EXCISION VEIN FROM HAND (Left Arm) (ESRD) Camilo Ireland MD Procopio, Marcia A, MD All Anesthesia Providers: Anesthesiologist: Vivienne Naylor MD Account Group Supervisor: Nelson Thornton MD Last (1hr) Vitals: BP Temp Pulse Resp SpO2 Patient Location: PACU/[facility] Level of Consciousness: Awake and Alert Pain Management: Satisfactory Analgesia PONV: None Cardiovascular Status: At Baseline and Hemodynamically Stable Respiratory Status: At Baseline and Room Air Postoperative Fluid Status: Intravascular EUvolemia Possible Anesthetic Complications: NONE apparent at time of evaluation Final Primary Anesthesia Type: MAC (The anesthetic type performed was the same as planned.) Comments: NELSON THORNTON MD * Anesthesia Preprocedure Evaluation - Nelson Thornton - 11/19/2015 8:19 PM EDT Images from the original note were not included. Pre-Anesthesia Evaluation for: Adama Ram a 55 y.o. male. Procedure(s): LIGATION\REPAIR AV FISTULA Patient Active Problem List Diagnosis ??? Anticoagulated on Coumadin ??? Rosacea ??? Acne rosacea ??? Nevus ??? BCC (basal cell carcinoma of skin) ??? 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 Kidney replaced by transplant Dx replacement utility run on deactivated IMO Dx [id number] ??? Gout ??? Hypertension ??? Left leg DVT ??? Epilepsy ??? 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 DVT (deep venous thrombosis) ??? BP (high blood pressure) ??? Gout ??? TBI (traumatic brain injury) 1980 Past Surgical History Procedure Laterality Date ??? Created by interface Entered not Verified Procedure Date: 09/19/2010 ??? Kidney transplant KIDNEY TRANSPLANT / RECIPIENT/LT Procedure Date: 11/26/2002 ??? Us renal transplant biopsy 12/31/2010 ??? Pro repair intermediate s/a/t/e 2.6-7.5 cm 04/19/2012 REPAIR INTERMEDIATE WOUND, (NO HANDS OR FEET) 2.6 TO 7.5CM, UPPER EXTREMITY performed by SABRINA SANCHEZ at [facility] MAIN OR ? ? Pro exc skin malig >4cm trunk, arm, leg 04/19/2012 EXC MALIGNANT LESION, MICHAEL > 4.0CM, TRUNK performed by SABRINA SANCHEZ at [facility] MAIN OR History Substance Use Topics ??? Smoking status: Former Smoker Types: Cigarettes Quit date: 12/03/2000 ??? Smokeless tobacco: Former User Quit date: 04/14/2001 ??? Alcohol Use: No History Drug Use No Allergies Allergen Reactions ??? Benazepril Hcl ??? Codeine Other (See Comments) Patient does not know reaction ??? Hydrochlorothiazide ??? Pollen Extracts Sneezing/runny nose Medications: MAR and/or home medications have been reviewed. Physical Exam: There were no vitals filed for this visit. There is no weight on file to calculate BMI. Airway Assessment: Mallampati: II TM distance: >3 FB Neck ROM: full Cardiovascular Assessment: cardiovascular exam normal Pulmonary Assessment: pulmonary exam normal Dental Assessment: (+) upper dentures Misc Assessment: Patient is wearing No contact(s). IV access: Peripheral line Anesthesia Plan: ASA 3 MAC, with a(n) intravenous induction Adama Ram is a 55 y.o. male presenting for Left cephalic AV fistula ligation. The patient's past medical history, past surgical history, medications, and allergies were reviewedand notable for ESRD s/p kidney transplant with continued CKD Cr 2.0 but not requiring HD, secondary to IgA nephropathy, seizures on keppra, and HTN (on metoprolol, hydralazine, diltiazem), . Patient's documented history was NEGATIVE for CVA, cardiac disease, pulmonary disease, hepatic disease, and coagulopathy. There is no evidence of any recent URI symptoms, fevers/chills, or other signs of infection. Labs were reviewed and notable for Hgb 9-11 K 4.6 Cr 2.21 Allergies: -- Benazepril Hcl -- Codeine -- Patient does not know reaction -- Hydrochlorothiazide -- Pollen Extracts -- Sneezing/runny nose NPO Status: Appropriate Anesthetic History: Previously tolerated GA without issue. LMA, no DL records available. Anesthetic Plan: MAC Standard ASA monitoring Adequate IV access Nelson Thornton MD PhD 11/19/2015 Region - Other Informed Consent: Anesthetic plan and risks discussed with patient. Use of blood products discussed with patient whom consented to blood products. Plan discussed with attending. PAT Staff Note documented in this encounter Plan of Treatment Not on file documented as of this encounter Visit Diagnoses Not on filedocumented in this encounter Administered Medications Inactive Administered Medications - up to 3 most recent administrations Medication Order MAR Action Action Date Dose Rate Site ceFAZolin (ANCEF) 2g in dextrose 5% 50 mL 2 g, Intravenous, SOLDERER ASSEMBLY REPAIR TO O.R., 1 dose, On Wed11/20/15 at 0645, Administer over 30 Minutes, Indication for (Active or Suspected): Prophylaxis Given 11/20/2015 7:41 AM EDT 2 g lactated ringers infusion CONTINUOUS PRN, Starting on Wed11/20/15 at 0729, Until Wed11/20/15 at 1105, Anesthesia Intra-op New Bag 11/20/2015 7:29 AM EDT lidocaine (PF) (XYLOCAINE) 100 mg/5 mL (2 %) injection PRN, Starting on Wed11/20/15 at 0750, Until Wed11/20/15 at 1105, Anesthesia Intra-op, Routine Given 11/20/2015 7:50 AM EDT 50 mg midazolam (PF) (VERSED) 1 mg/mL multi-dose injection PRN, Starting on Wed11/20/15 at 0725, Until Wed11/20/15 at 1105, Sleep, Anesthesia Intra-op, Routine Given 11/20/2015 7:25 AM EDT 2 mg propofol (DIPRIVAN) 10 mg/mL bolus injection (Anesthesia) PRN, Starting on Wed11/20/15 at 0750, Until Wed11/20/15 at 1105, Anesthesia Intra-op Given 11/20/2015 9:01 AM EDT 10 mg Given 11/20/2015 8:45 AM EDT 30 mg Given 11/20/2015 8:22 AM EDT 30 mg propofol (DIPRIVAN) infusion CONTINUOUS PRN, Starting on Wed11/20/15 at 0751, Until Wed11/20/15 at 1105, Anesthesia Intra-op, Routine Rate/Dose Change 11/20/2015 9:20 AM EDT 50 mcg/kg/min 23.8 mL/hr Rate/Dose Change 11/20/2015 9:17 AM EDT 75 mcg/kg/min 35.7 mL/hr Rate/Dose Change 11/20/2015 9:11 AM EDT 100 mcg/kg/min 47. 6 mL/hr documented in this encounter Care Teams Branch Billing Payroll Clerk Relationship Specialty Start Date End Date Carroll Fuentes DO [address] [place] [address] PCP - General 09/23/11 10/20/22 documented as of this encounter
--- OUTSIDE RECORDS SUMMARY | 2024-04-22 11:13 | XMS_ITS | Encounter Summary ---
[place] [address] Care Team Providers Care Store Protection Specialist Name Role Phone Carroll Fuentes DO Primary Care Provider [phone] Reason for Visit * Reason Onset Date Comments Medication Refill 07/10/2015 Encounter Details Date Type Department Care Team (Late st Contact Info) Description 07/10/2015 Refill [place] [id number] Autumn Burgos, RN High level of uric [...] chemistry documented in this encounter Care Teams Store Protection Specialist Relationship Specialty Start Date End Date Carroll Fuentes DO [address] [place] [address] PCP - General 09/23/11 10/20/22 documented as of this encounter
--- OUTSIDE RECORDS SUMMARY | 2024-04-22 11:13 | XMS_ITS | Encounter Summary ---
Author Organization [facility] Address [facility] [place] [address] Care Team Providers Care Log Cut Off Sawyer Name Role Phone Carroll Fuentes DO Primary Care Provider [phone] Reason for Visit * Reason Comments Medication Refill Encounter Details Date Type Department Care Team (Late st Contact Info) Description 06/25/2015 [place] [address] Alfonzo Miles MD [facility] [place] [address] Social History Tobacco Use Types Packs/Day Years [...] on filedocumented in this encounter Care Teams Log Cut Off Sawyer Relationship Specialty Start Date End Date Carroll Fuentes DO [address] [place] [address] PCP - General 09/23/11 10/20/22 documented as of this encounter
--- OUTSIDE RECORDS SUMMARY | 2024-04-22 11:13 | XMS_ITS | Encounter Summary ---
[place] [address] Care Team Providers Care Porter Sample Case Name Role Phone Carroll Fuentes DO Primary Care Provider [phone] Reason for Visit * Reason Onset Date Comments Medication Refill 04/02/2015 Encounter Details Date Type Department Care Team (Late st Contact Info) Description 04/02/2015 Telephone [place] [address] Tosha Castro, cable television installer Refill Social History Tobacco Use Types Packs/Day [...] transplant documented in this encounter Care Teams Porter Sample Case Relationship Specialty Start Date End Date Carroll Fuentes DO [address] [place] [address] PCP - General 09/23/11 10/20/22 documented as of this encounter
--- OUTSIDE RECORDS SUMMARY | 2024-04-22 11:13 | XMS_ITS | Encounter Summary ---
Author Organization [facility] Address [facility] [place] [address] Care Team Providers Care Traffic Court Magistrate Name Role Phone AlfredoCarroll allison Primary Care Provider [phone] Reason for Visit * Auth/Cert Specialty Diagnoses / Procedures Referred By Shashi ko Referred To Contact Diagnoses ESRD Procedures PRO VASCULAR SURGERY PROCEDURE UNLIST LIGATION\REPAIR AV FISTULA Referral ID Status Reason Start Date Expiration Date Visits Re quested Visits Authorized [id number] 1 1 Encounter Details Date Type Department Care Team (Late st Contact Info) Description 11/20/2015 5:58 AM EDT - 11/20/2015 11:00 AM EDT Hospital [place] [address] Stephanie Ireland MD [facility] [place] [address] Anticoagulated Discharge Disposition: Home Social History Tobacco Use [...] Sign Reading Time Taken Comments Blood Pressure 114/86 11/20/2015 10:30 AM EDT Pulse 48 11/20/2015 9:45 AM EDT Temperature 36.6 ??C (97.9 ??F) 11/20/2015 9:45 AM ED T Respiratory Rate 16 11/20/2015 9:45 AM EDT Oxygen Saturation 97% 11/20/2015 10:30 AM EDT Inhaled Oxygen Concentration - - Weight 79.4 kg (175 lb) 11/20/2015 6:32 AM EDT Height 177.8 cm (5' 10) 11/20/2015 6:32 AM EDT Body Mass Index 25.11 11/20/2015 6:32 AM EDT documented in this encounter Discharge Instructions * Discharge Instructions* Maria De Jesus Rodrigues RN - 11/20/2015 10:01 AM EDT POST ANESTHESIA INSTRUCTIONS Go home, rest, [...] away in 12-24 hours. * Patient Instructions* Aki Shannon MD - 11/20/2015 9:50 AM EDT Provider Instructions Discharge Instructions CALL YOUR PHYSICIAN IF: ??? You have a fever greater than 101 degrees Farenheit within one month of your surgery. ??? You have worsening pain, not controlled with your pain medication. ??? You develop redness, swelling, or new drainage from your wound. Fistula Discharge Instructions 1. Keep your arm wrapped for 2 days after surgery 2. Once you take off your bandage, it is ok to shower and get your incision wet 3. Call if hand is cool, blue, or you are unable to feel with it. 4. Do not lift more than 10 lbs for 2 weeks Prescriptions*: -You have been prescribed narcotic pain medications (such as Percocet, Vicodin, Oxycodone or Dilaudid) to control your discomfort after surgery. ? DO NOT use alcohol, drive, or operate heavy or complex machinery while taking these medications. ? Narcotic pain medications may cause constipation. ? Stool softeners, such as Colace; mild laxatives, such as Milk of Magnesia, Sennakot, or Ducolax tabs; or enemas may be used if needed and are nmmz-sdc-tbehqbf (OTC) medications available at most local pharmacies. Prunes or prune juice, taken daily, can also be helpful for constipation treatment or prevention and are available at most superInvestCloudets. Driving Restrictions*: - No driving if you are too sore from surgery to enter or exit your vehicle comfortably, or if you are too sore to easily check your blind spot. No driving while using prescription pain medications Wound Care: ? You can shower per usual routine and wash the incision area gently. Pat incision dry with a clean, dry towel. ? Do not submerge the wound under water (avoid spas, pools and bathtubs) until it is fully healed. ? Do not use creams, oils, or ointments on the wound. ? Keep the wound open to air if it is not draining. Comfort: ? Some incision soreness can be expected. ? Take your pain medication as needed and prescribed. ? Taper use of pain medication as pain lessens. Follow-up Appointments: A Follow-up appointment will be scheduled with the [facility] - [address] in 2-4 weeks. You will recieve a letter in the mail and/or a phone call with information about this appointment. Please call [phone] (clinic number for appointments) to confirm date and time of your appointment, or if you do not receive information about your appointment in a timely manner. Future Appointments Date Time Provider Department Center 11/21/2015 4:00 PM Alfonzo Miles MD [facility] 12/03/2015 4:30 PM Stephanie Ireland MD [facility]M [facility] 03/03/2016 10:45 AM Bashir Benitez MD [facility] documented in this encounter Medications at Time of Discharge Medication Sig Dispensed Refills Start Date End Date ciprofloxacin (CIPRO) 100 mg Tablet Take 100 mg by mouth 2 times daily. 12/03/2015 oxyCODONE (ROXICODONE) 5 mg Tablet Take 1-2 tablets by mouth every 4 hours as needed for Pain. 30 tablet 0 11/20/2015 12/03/2015 calciTRIol (ROCALTROL) 0.5 mcg Capsule Take 1 [...] (with meals). 90 capsule 11 11/28/2014 11/28/2015 DILTiazem (DILACOR XR) 120 mg Capsule, Sust. [...] as of this encounter H&P Notes * Aki Shannon MD - 11/20/2015 6:25 AM EDT Patient Name: Adama Ram Patient Age: 55 y.o. Birthdate: 1960 Admit date: 11/20/2015 Attending Physician: Stephanie Ireland,* Please see recent note for full details. Patient states no change since last seen. NAD, pleasant man MMM RRR CTAB ABD: s/nt/nd Ext: normal/warm, large left forearm AV fistula Proceed with ligation and vein resection of left forearm AV fistula. AKI CONTRERAS MD documented in this encounter Miscellaneous Notes * Op Note - Stephanie Ireland MD - 11/20/2015 9:22 AM EDT [facility] Operative Note Patient Name: Adama Ram : [id number] MR#: [id number] Case Date: 11/20/2015 Surgeon: Surgeon(s) and Role: * Stephanie Ireland MD - Primary * Aki Shannon MD - Resident-Surgeon Huber Preoperative diagnosis: ESRD Postoperative diagnosis: ESRD Procedure(s): LIGATION\REPAIR AV FISTULA Anesthesia: MAC Estimated Blood Loss: * No values recorded between 11/20/2015 8:01 AM and 11/20/2015 9:23 AM * Specimens removed during surgery: left forearm cephalic vein, this was not sent to pathology Drains: Surgical Closure: Primary Closure - closure of ALL tissue levels during the original surgery regardless of wires, wickes, drains, or other devices extruding through the incision Disposition: aroused from sedation, and taken to the recovery room in a stable condition Condition: doing well without problems (Please see the Surgical Encounter Summary for any Implant and Specimen details pertinent to this patient.) HPI/Surgical Indications: Mr. Ram is a 55-yo male with a history of ESRD who had a left snuffboxradiocephalic av fistula placed prior to his kidney transplant operation. He has intact renal allograft function and was interested in ligation and excision of his left radiocephalic av fistula following a blunt traumatic injury to the site last month. We discussed the procedure and he understood the risks. He understood that we would leave a cuff of vein at the site of ligation near the wrist that will remain visible under the skin following the case. He stopped his Coumadin on Wednesday. He provided informed consent for the operation and was taken to the OR today. Procedure Description: Mr. Ram was transported to the OR and placed in a supine position on the OR table. He received light IV sedation and the left arm was placed on a padded arm board in an outstretched position where it was sterilely prepped and draped in the standard fashion. We performed a timeout during which time we confirmed that the patient received Ancef 2 g IV x 1 within 30 minutes prior to the incision. We began by injecting a CC:CC mixture of 1% lidocaine : 0.5% marcaine in the subcutaneous tissues along the lateral margin of the forearm cephalic vein. We opened the skin with a scalpel along the length of the forearm cephalic vein and dissected through the subcutaneous tissues. We identified the large cephalic vein and circumferentially mobilized it. In order to do this we had to ligate a number of cephalic vein sidebranches. These were divided between 3-0 silk ligatures. At the mid-forearm we identified a branch point with a large medial branch, large lateral branch, and main cephalic vein. This was where we ended our dissection. We ligated each of these large branches with 3-0 silk suture ligatures x 2. We placed an angled ductus clamp across the cephalic vein approximately 3cm distalto the radial artery anastomosis. We confirmed by doppler that he maintained a strong radial arterysignal distal to the clamp site. We then divided the cephalic vein over the angled ductus clamp and oversewed the vein with running 5-0 Prolene suture in two layers. We released the clamp and had a small area of bleeding on the lateral margin of the oversewn vein. This area was reclamped with the angled ductus and we ran another 5-0 Prolene running suture over this area of the vein. We released the clamp and had hemostasis. The wound was copiously irrigated with normal saline. We packed it withSurgiflo for approximately five minutes and then inspected the wound for bleeding. We cauterized several areas of oozing in the subcutaneous tissues. The ligated vein stumps were all hemostatic. We found no evidence of bleeding. We confirmed that the patient had a palpable pulse and intact doppler signal in the radial artery distal to the vein ligation site at the end of the procedure. We then reapproximated the subcutaneous tissues with interrupted 3-0 Vicryl sutures. We closed the skin with running subcuticular 4-0 Monocryl. The incision site was covered with Dermabond glue and then the forearm and hand were wrapped with Kerlix dressings. We placed an ANILA wrap around the hand and forearm. The patient tolerated the procedure well and there were no complications. He emerged from anesthesia uneventfully and was transported to the recovery room in good condition. All counts were correct at the end of the case. Infection Bundle used? N/A Attestation: Case Date: 11/20/2015 I was present and I participated during the entire procedure (does not need to include opening and closing). STEPHANIE IRELAND MD 11/20/2015 documented in this encounter Plan of Treatment Not on file documented as of this encounter Procedures Procedure Name Priority Date/Time Associated Diagnosis Comments EXCISION VEIN FROM HAND (WRVU 13.24) Yes 11/20/2015 7:29 AM EDT ESRD LIGATION\REPAIR AV FISTULA (WRVU 13.24) Yes 11/20/2015 7:29 AM EDT ESRD PROTHROMBIN TIME STAT 11/20/2015 6:07 AM EDT Anticoagulated documented in this encounter Results * (ABNORMAL) Prothrombin Time (11/20/2015 6:07 AM EDT) Prothrombin Time 22.4(H) 12.0 - 15.0 sec [facility] Comment: An INR [...] depending on clinical circumstances. International Normalization Ratio 1.9(H) 0.9 - 1.1 [facility] Blood specimen (specimen) 11/20/2015 6:07 AM EDT 11/20/2015 6:18 AM EDT Narrative Resulting Agency Comment Spec In Lab Stephanie Ireland MD HEMATOLOGY ORD ERABLES [facility] [place] [address] documented in this encounter Visit Diagnoses Diagnosis Anticoagulated Encounter for long-term (current) use of anticoagulants documented in this encounter Administered Medications Inactive Administered Medications - up to 3 most recent administrations Medication Order MAR Action Action Date Dose Rate Site sodium chloride 0.9% infusion 50 mL/hr, Intravenous, CONTINUOUS, Starting on Wed11/20/15 at 1015, Until Wed11/20/15 at 1048, PACU Recovery New Bag 11/20/2015 10:15 AM EDT 50 mL/hr 50 mL/hr documented in this encounter Active and Recently Administered Medications Times are shown in EDT. Scheduled Medication Order 11/18/2015 11/19/2015 11/20/2015 ceFAZolin (ANCEF) 2g in dextrose 5% 50 mL (COMPLETED) 2 g, Intravenous, ACADEMIC AFFAIRS VICE PRESIDENT TO O.R., 1 dose, On Wed11/20/15 at 0645, Administer over 30 Minutes, Indication for (Active or Suspected): Prophylaxis 0741 (Given - Provid er: Lamont Thornton) Continuous Medication Order 11/18/2015 11/19/2015 11/20/2015 sodium chloride 0.9% infusion (CANCELED) 50 mL/hr, Intravenous, CONTINUOUS, Starting on Wed11/20/15 at 1015, Until Wed11/20/15 at 1048, PACU Recovery 1015 (New Bag - Prov ider: Maria De Jesus Rodrigues RN) PRN Medication Order 11/18/2015 11/19/2015 11/20/2015 BUpivacaine (PF) (MARCAINE) 0.5 % (5 mg/mL) injection (CANCELED) ONCE PRN, Starting on Wed11/20/15 at 0921, Until Wed11/20/15 at 1048, Intra-Operative (Intra-Procedure), Routine 09 (Given - Provid er: Stephanie Ireland MD - Comment: Mixed 1:1 with 11.5mL 1% Lidocaine.) lidocaine (PF) (XYLOCAINE) 10 mg/mL (1 %) injection (CANCELED) ONCE PRN, Starting on Wed11/20/15 at 0922, Until Wed11/20/15 at 1048, Intra-Operative (Intra-Procedure), Routine 09 (Given - Provid er: Stephanie Ireland MD - Comment: Mixed 1:1 with 11.5mL 0.5% Marcaine.) oxyCODONE (ROXICODONE) immediate release tablet 5-10 mg 5-10 mg, Oral, EVERY 4 HOURS PRN, Starting on Wed11/20/15 at 0948, Until Wed11/20/15 at 1300, Pain, Routine documented in this encounter Care Teams Traffic Court Magistrate Relationship Specialty Start Date End Date Carroll Fuentes DO [address] [place] [address] [address] [place] [address] PCP - General 09/23/11 10/20/22 documented as of this encounter
--- OUTSIDE RECORDS SUMMARY | 2024-04-22 11:13 | XMS_ITS | Encounter Summary ---
Author Organization [facility] Address [facility] [place] [address] Care Team Providers Care Back Tender Fourdrinier Name Role Phone Carroll Fuentes DO Primary Care Provider [phone] Reason for Visit * Reason Comments Medication Refill Encounter Details Date Type Department Care Team (Late st Contact Info) Description 12/23/2014 Refill [place] [address] Anup Hawkins MD [facility] [place] [address] Social History Tobacco Use Types Packs/Day Years [...] on filedocumented in this encounter Care Teams Back Tender Fourdrinier Relationship Specialty Start Date End Date Carroll Fuentes DO [address] [place] [address] PCP - General 09/23/11 10/20/22 documented as of this encounter
--- OUTSIDE RECORDS SUMMARY | 2024-04-22 11:13 | XMS_ITS | Encounter Summary ---
Author Organization [facility] Address [facility] [place] [address] Care Team Providers Care Pin Pusher Name Role Phone AlfredoCarroll allison Primary Care Provider [phone] Reason for Visit * Auth/Cert Specialty Diagnoses / Procedures Referred By Shashi ko Referred To Contact Diagnoses ESRD Procedures PRO VASCULAR SURGERY PROCEDURE UNLIST LIGATION\REPAIR AV FISTULA Referral ID Status Reason Start Date Expiration Date Visits Re quested Visits Authorized [id number] 1 1 Encounter Details Date Type Department Care Team (Late st Contact Info) Description 11/20/2015 7:30 AM EDT - 11/20/2015 9:21 AM EDT Surgery [place] [address] Stephanie Ireland MD [facility] [place] [address] LIGATION\REPAIR AV FISTULA (WRVU 13.24) Social History Tobacco Use Types Packs/Day Years [...] Sign Reading Time Taken Comments Blood Pressure 118/80 11/20/2015 6:32 AM EDT Pulse 51 11/20/2015 6:32 AM EDT Temperature - - Respiratory Rate 18 11/20/2015 6:32 AM EDT Oxygen Saturation 98% 11/20/2015 6:32 AM EDT Inhaled Oxygen Concentration - - [...] may be used if needed and are ehkw-ddd-eonxrse (OTC) medications available at most local pharmacies. Prunes or prune juice, taken daily, can also be helpful for constipation treatment or prevention and are available at most supermarkets. Driving Restrictions*: - No driving if you [...] with the [facility] - [address] in 2-4 weeks. You will recieve a letter in the mail and/or a phone call with information about this appointment. Please call [phone] (clinic number for appointments) to confirm date and time of your appointment, or if you do not receive information about your appointment in a timely manner. Future Appointments Date Time Provider Department Center 11/21/2015 4:00 PM Alfonzo Miles MD [facility] 12/03/2015 4:30 PM Stephanie Ireland MD [facility] 03/03/2016 10:45 AM Bashir Benitez MD [facility] documented in this encounter Medications at Time [...] Ireland MD - 11/20/2015 9:22 AM EDT [facility] Operative Note Patient Name: Adama Ram : [id number] MR#: [id number] Case Date: 11/20/2015 Surgeon: Surgeon(s) and Role: [...] Prothrombin Time 22.4(H) 12.0 - 15.0 sec [facility] Comment: An INR <2.0 [...] International Normalization Ratio 1.9(H) 0.9 - 1.1 [facility] Blood specimen (specimen) 11/20/2015 6:07 AM EDT 11/20/2015 6:18 AM EDT Narrative Resulting Agency Comment Spec In Lab Stephanie Ireland MD HEMATOLOGY ORD ERABLES [facility] [place] [address] documented in this encounter Visit Diagnoses Not on filedocumented in this encounter Administered Medications Inactive Administered Medications - up to 3 most recent administrations Medication Order MAR Action Action Date Dose Rate Site BUpivacaine (PF) (MARCAINE) 0.5 % (5 mg/mL) injection ONCE PRN, Starting on Wed11/20/15 at 0921, Until Wed11/20/15 at 1048, Intra-Operative (Intra-Procedure), Routine Given 11/20/2015 9:21 AM EDT 11.5 mLs 19- Surgical Site lidocaine (PF) (XYLOCAINE) 10 mg/mL (1 %) injection ONCE PRN, Starting on Wed11/20/15 at 0922, Until Wed11/20/15 at 1048, Intra-Operative (Intra-Procedure), Routine Given 11/20/2015 9:22 AM EDT 115 mg 19- Surgical Site sodium chloride 0.9% infusion 50 mL/hr, Intravenous, CONTINUOUS, Starting on Wed11/20/15 at 1015, Until Wed11/20/15 at 1048, PACU Recovery New Bag 11/20/2015 10:15 AM EDT 50 mL/hr 50 mL/hr documented in this encounter Active and Recently Administered Medications Times are shown in EDT. Scheduled Medication Order 11/18/2015 11/19/2015 11/20/2015 ceFAZolin (ANCEF) 2g in dextrose 5% 50 mL (COMPLETED) 2 g, Intravenous, TEACHING FELLOW TO O.R., 1 dose, On Wed11/20/15 at [...] Until Wed11/20/15 at 1048, Intra-Operative (Intra-Procedure), Routine 0921 (Given - Provid er: Stephanie Ireland MD [...] Routine documented in this encounter Care Teams Pin Pusher Relationship Specialty Start Date End Date Carroll Fuentes DO [address] [place] [address] PCP - General 09/23/11 10/20/22 documented as of this encounter
--- OUTSIDE RECORDS SUMMARY | 2024-04-22 11:14 | XMS_ITS | Encounter Summary ---
[place] [address] Care Team Providers Care Beer Runner Name Role Phone Carroll Fuentes DO Primary Care Provider Reason for Visit * Reason Onset Date Comments Medication Refill 10/23/2014 Encounter Details Date Type Department Care Team (Late st Contact Info) Description 10/23/2014 Refill [place] [address] Autumn Burgos, RN S/P kidney transplant Social [...] transplant documented in this encounter Care Teams Beer Runner Relationship Specialty Start Date End Date Carroll Fuentes DO [address] [place] [address] PCP - General 09/23/11 10/20/22 documented as of this encounter
--- OUTSIDE RECORDS SUMMARY | 2024-04-22 11:14 | XMS_ITS | Encounter Summary ---
Author Organization [facility] Address [facility] [address] Care Team Providers Care Rn Neonatal Name Role Phone Carroll Fuentes DO Primary Care Provider [phone] Reason for Visit * Reason Onset Date Comments Medication Refill 11/24/2013 Encounter Details Date Type Department Care Team (Late st Contact Info) Description 11/24/2013 Refill [place] [address] Anup Hawkins MD [facility] [place] [address] High level of uric acid in blood (Primary Dx) Social History Tobacco Use Types [...] Diagnosis High level of uric acid in blood- Primary Other abnormal blood chemistry documented in this encounter Care Teams Rn Neonatal Relationship Specialty Start Date End Date Carroll Fuentes DO [address] [place] [address] PCP - General 09/23/11 10/20/22 documented as of this encounter
--- OUTSIDE RECORDS SUMMARY | 2024-04-22 11:14 | XMS_ITS | Encounter Summary ---
Author Organization [facility] Address [facility] [place] [address] Care Team Providers Care Tool Setter Apprentice Name Role Phone Carroll Fuentes DO Primary Care Provider [phone] Reason for Visit * Reason Onset Date Comments Medication Refill 06/13/2014 Encounter Details Date Type Department Care Team (Late st Contact Info) Description 06/13/2014 Refill [place] [address] Anand Hernandez MD [facility] [place] [address] High level of uric acid in blood [...] chemistry documented in this encounter Care Teams Tool Setter Apprentice Relationship Specialty Start Date End Date Carroll Fuentes DO [address] [place], [place] [address] PCP - General 09/23/11 10/20/22 documented as of this encounter
--- OUTSIDE RECORDS SUMMARY | 2024-04-22 11:14 | XMS_ITS | Encounter Summary ---
Author Organization [facility] Address [facility] [place] [address] Care Team Providers Care Rehabilitation Director Name Role Phone AlfredoCarroll allison Primary Care Provider Encounter Details Date Type Department Care Team (Latest Contact Info) Description 08/22/2013 8:46 PM EST - 08/22/2013 11:59 PM [facility] Hospital [place] [address] Anup Hawkins MD [facility] [place] [address] Discharge Disposition: Home Social History Tobacco Use [...] Sig Dispensed Refills Start Date End Date hydralazine (APRESOLINE) 50 mg tabletIndications:HTN (hypertension) Take 1 tablet by mouth 2 times daily. 180 tablet 1 08/11/2013 02/21/2014 CELLCEPT 250 mg capsuleIndications:S/ P kidney transplant Take 4 capsules by mouth 2 times daily. Kidney Transplant V42.0. Transplant Date; 11-26-02 240 capsule 11 08/09/2013 02/13/2014 PROGRAF 1 mg capsule take 1 capsule by mouth twice a day 120 capsule 11 07/03/2013 07/17/2014 allopurinol (ZYLOPRIM) 100 mg tabletIndications:gou t Take 1.5 tablets by mouth daily. Indications: Gout 45 tablet 11 06/15/2013 11/24/2013 doxycycline (VIBRAMYCIN) 100 mg capsuleIndications:Ro sacea Take 1 capsule by mouth 2 times daily. 60 capsule 0 05/23/2013 11/22/2013 metroNIDAZOLE (METROCREAM) 0.75 % creamIndications:[place] cea APPLY TO FACE TWICE DAILY NEEDED. 45 g 0 04/18/2013 11/28/2014 DILTiazem (DILACOR XR) 120 mg 24 hr capsule take 1 capsule by mouth once daily 90 capsule 3 01/29/2013 01/31/2014 levothyroxine (SYNTHROID) 100 mcg Tablet Take 100 mcg by mouth daily. 2018 losartan (COZAAR) 25 mg tablet Take 1 tablet by mouth daily. 90 tablet 3 12/07/2012 12/07/2013 leveTIRAcetam (KEPPRA) 1,000 mg tablet Take 1 tablet by mouth 2 times daily. 180 tablet 3 11/21/2012 11/07/2013 warfarin (COUMADIN) 5 mg tablet Take 1 tablet (5 mg) by mouth on , and 1.5 tablets (7.5 mg) on all other days. Weekly dose = 50 mg. Take at the same time each day, preferably between 5:00 and 6:00 PM. 01/11/2014 AMOXICILLIN TRIHYDRATE (TRIMOX ORAL) Take 2,000 mg by mouth. 1 hour Prior to dental procedures 05/11/2017 metoprolol tartrate (LOPRESSOR) 50 mg tablet Take 50 mg by mouth 3 times daily. 12/03/2010 10/20/2017 documented as of this encounter Plan of Treatment Not on file documented as of this encounter Procedures Procedure Name Priority Date/Time Associated Diagnosis Comments TACROLIMUS LEVEL Routine 08/22/2013 10:0 5 AM EST documented in this encounter Results * Tacrolimus level (08/22/2013 10:05 AM EST) Tacrolimus 4.9 ng/mL BUSHRA MILLENNIUM Comment:Trough therapeutic: 5-15 ng/mL Blood specimen (specimen) 08/22/2013 10:05 AM EST 08/23/2013 8:04 AM EST Narrative Resulting Agency Comment Spec In Lab Anup Hawkins MD CHEMISTRY ORDERAB LES BUSHRA SIMONIUM documented in this encounter Visit Diagnoses Not on filedocumented in this encounter Care Teams Rehabilitation Director Relationship Specialty Start Date End Date Carroll Fuentes DO [address] [place] [address] PCP - General 09/23/11 10/20/22 documented as of this encounter
--- OUTSIDE RECORDS SUMMARY | 2024-04-22 11:14 | XMS_ITS | Encounter Summary ---
Author Organization [facility] Address [facility] [place] [address] Care Team Providers Care Rehabilitation Director Name Role Phone AlfredoCarroll allison Primary Care Provider [phone] Reason for Visit * Reason Comments Rosacea Encounter Details Date Type Department Care Team (Late st Contact Info) Description 09/05/2013 9:30 AM EST Office Visit Dermatology at [address] [id number] Bashir Benitez MD [address] [place] [address], [facility] [place] [address] Acne rosacea (Primary Dx); Nevus Social History Tobacco Use Types Packs/Day Years [...] as of this encounter Progress Notes * Bashir Benitez MD - 09/05/2013 10:22 AM EST Problems: 1. Rosacea. 2. Mole check. 3. History of renal transplant. 4. History of IgA nephropathy. Adama is a 53-year-old gentleman who is referred today by Dr. Hawkins for his rosacea and for a general skin check. He was seen by Dr. Dickerson in May 2013 and given a month's worth of doxycycline. He was also told to continue his Metrogel. He started to see some improvement with the oral therapy but then ran out and was unable to follow up with Dr. Dickerson. He has continued just using the topical but with lack of adequate control. 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 He says that hot, spicy foods do not tend to exacerbate his rosacea. He does have Anglo-Lan ethnic descent and does flush and blush easily, he states. Physical examination reveals a pleasant, 53-year-old gentleman who has diffuse erythema of the nose with a very mild rhinophyma and erythematous papules and sebaceous hyperplasia diffusely over the cheeks and chin. He does not have any lesions on his chest or back. He has many benign-appearing nevi, primarily 3- to 4-mm, pigmented, junctional nevi over the torso. The examination of the head and neck, chest, back, hands, arms, and forearms is benign. Assessment and Plan: 1. Rosacea. a. I recommended that he again resume doxycycline, taking 100 mg one p.o. b.i.d.; #60 dispensed with one refill. b. Return to clinic in two months for repeat check. c. If doing well at that time, he may be able to cut back to maintenance dosing of one p.o. daily. 2. Benign nevi. a. Patient reassured about benign nevi. b. No treatment necessary. COPY: Anup Hawkins M.D. documented in this encounter Plan of Treatment Not on file documented as of this encounter Visit Diagnoses Diagnosis Acne rosacea- Primary Rosacea Nevus Benign neoplasm of skin, site unspecified documented in this encounter Care Teams Rehabilitation Director Relationship Specialty Start Date End Date Carroll Fuentes DO [address] [place] [address] [address] [place] [address] PCP - General 09/23/11 10/20/22 documented as of this encounter
--- OUTSIDE RECORDS SUMMARY | 2024-04-22 11:14 | XMS_ITS | Encounter Summary ---
Author Organization [facility] Address [facility] [place] [address] Care Team Providers Care Moose Hunter Name Role Phone AlfredoCarroll geiger Primary Care Provider [phone] Encounter Details Date Type Department Care Team (Late st Contact Info) Description 07/26/2013 External Results [place] [address] Anand Winn I, [place] [address] Social History Tobacco Use Types Packs/Day Years [...] Procedure Name Priority Date/Time Associated Diagnosis Comments [facility] TRANSPLANT FOLLOW UP LABS EXTERNAL RESULTS PANEL Routine 07/25/2013 documented in this encounter Results * (ABNORMAL) Transplant: Follow up lab request - External Results (07/25/2013) White Blood Cell 4.22 Hemoglobin 10.9(A) 13.5 - 17.5 Hematocrit 34.4(A) 41.0 - 53.0 Amylase 25 - 110 Lipase 0 - 53 Blood Urea Nitrogen 44 Creatinine 2.0 Tacrolimus ABORH Type Historical Provider CHEMISTRY ORDERAB LES documented in this encounter Visit Diagnoses Not on filedocumented in this encounter Care Teams Moose Hunter Relationship Specialty Start Date End Date Carroll Fuentes DO [address] [facility] [place] [address] PCP - General 09/23/11 10/20/22 documented as of this encounter
--- OUTSIDE RECORDS SUMMARY | 2024-04-22 11:14 | XMS_ITS | Encounter Summary ---
Author Organization [facility] Address [facility] [place] [address] Care Team Providers Care Automotive Instructor Name Role Phone AlfredoCarroll allison Primary Care Provider [phone] Encounter Details Date Type Department Care Team (Late st Contact Info) Description 12/13/2013 11:15 AM EDT [place] [address] Alfonzo Miles MD [facility] [place] [address] Epilepsy (Primary Dx) Discharge Disposition: Home Social History Tobacco Use [...] Sign Reading Time Taken Comments Blood Pressure 110/76 12/13/2013 11:22 AM EDT Pulse 57 12/13/2013 11:22 AM EDT Temperature - - Respiratory Rate - - Oxygen Saturation - - Inhaled Oxygen Concentration - - Weight 83.3 kg (183 lb 9.6 oz) 12/13/2013 11:22 AM EDT Measured with work boots on Height 182.9 cm (6') 12/13/2013 11:22 AM EDT Reported Body Mass Index 24.9 12/13/2013 11:22 AM EDT documented in this encounter Patient Instructions * Patient Instructions* Alfonzo Miles MD - 12/13/2013 12:03 PM EDT I think you're doing quite well. Seizures have been controlled for many years. Because your kidney function is not quite normal, the Keppra level has risen a little over the years. I think it is reasonable to reduce the dose of Keppra slightly. I am changing the prescription from the 1000 mg pills to the 500 mg pills. Take 1 in the morning and 2 at night. This would be reduction of 500 mg a day If there are any problems please call. I would like to see you back in a year, and please make my office coordinate this with your other appointments here Alfonzo Miles MD [place] [address] Pager: [phone], #[phone] Email: [email or web address] [place] documented in this encounter Progress Notes * Alfonzo Miles MD - 12/12/2013 9:44 PM EDT Chief Complaint: Epilepsy. History: The patient is [...] IgA nephropathy. Seizures have remained fully controlled. He is doing quite well neurologically. He remains seizure-free. His last seizure was several years ago. He continues to work at various jobs. 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 His renal transplant and renal function have been stable. PMH: Patient Active Problem List Diagnoses Code ??? Epilepsy 345.90 ??? End stage renal disease 585.6 ??? Gout 274.9 ??? Hypertension 401.9 ??? Left leg DVT 453.40 ??? Kidney replaced by transplant V42.0 ??? IgA nephropathy 583.9 ??? BCC (basal cell carcinoma of skin) 173.91 Review of systems: He eats and sleeps all right. Bowel and bladder function are normal. Physical Exam: BP 110/76 Pulse 57 Ht 182.9 cm (6') Wt 83.28 kg (183 lb 9.6 oz) BMI 24.90 kg/m2 Head, eyes, ears, nose and throat were normal. Heart and lungs were normal. There is swelling of the left arm where he has the fistula, and pedal edema seems well controlled. He is mentally at baseline, with borderline cognitive slowing. Speech was normal. His mood was good Cranial nerves were normal. His strength was normal. Reflexes were somewhat hypoactive, which is his baseline. He has a mild distal neuropathy. His gait was stable. Medications: Current Outpatient Prescriptions Medication Sig Dispense Refill ??? losartan (COZAAR) 25 mg tablet take 1 tablet by mouth once daily 90 tablet 3 ??? allopurinol (ZYLOPRIM) 100 mg tablet Take 1.5 tablets by mouth daily. Indications: Gout 45 tablet 11 ??? [DISCONTINUED] levETIRAcetam (KEPPRA) 1,000 mg tablet take 1 tablet by mouth twice a day 180 tablet 3 ??? hydralazine (APRESOLINE) 50 mg tablet Take 1 tablet by mouth 2 times daily. 180 tablet 1 ??? CELLCEPT 250 mg capsule Take 4 capsules by mouth 2 times daily. Kidney Transplant V42.0. Transplant Date; 11-26-02 240 capsule 11 ??? PROGRAF 1 mg capsule take 1 capsule by mouth twice a day 120 capsule 11 ??? metroNIDAZOLE (METROCREAM) 0.75 % cream APPLY TO FACE TWICE DAILY NEEDED. 45 g 0 ??? DILTiazem (DILACOR XR) 120 mg 24 hr capsule take 1 capsule by mouth once daily 90 capsule 3 ??? levothyroxine (SYNTHROID) 88 mcg tablet Take 88 mcg by mouth daily. ??? warfarin (COUMADIN) 5 mg tablet Take 1 tablet (5 mg) by mouth on , and 1.5 tablets (7.5mg) on all other days. Weekly dose = 50 mg. Take at the same time each day, preferably between 5:00and 6:00 PM. ??? AMOXICILLIN TRIHYDRATE (TRIMOX ORAL) Take 2,000 mg by mouth. 1 hour Prior to dental procedures ??? metoprolol tartrate (LOPRESSOR) 50 mg tablet Take 50 mg by mouth 3 times daily. ??? levETIRAcetam (KEPPRA) 500 mg tablet Take 1 pill in AM and 2 pills in PM 90 tablet 12 Lab Studies: None today. CBC chemistry and liver profile were unremarkable recently. Keppra level was 62. Impression: The patient is doing quite well neurologically. He has posttraumatic epilepsy. Seizures are fully controlled. I think he should stay on Keppra indefinitely. I note that his level has gradually risen over the years, possibly because of a slight decline in renal function. He has been seizure free formany years. I think we should reduce the dose little from 1000 mg twice a day to 500 mg in morning and 1000 mg at night. I discussed this with him and have rewritten his prescription. Thank you for this consultation. I will see him back in a year or sooner if necessary. Alfonzo Miles MD [place] [address] Pager: [phone], #[phone] Email: [email or web address] [place] cc: CHASE FUENTES DO documented in this encounter Plan of Treatment Not on file documented as of this encounter Visit Diagnoses Diagnosis Epilepsy- Primary Unspecified epilepsy without mention of intractable epilepsy documented in this encounter Care Teams Automotive Instructor Relationship Specialty Start Date End Date Carroll Fuentes DO [address] [place] [address] PCP - General 09/23/11 10/20/22 documented as of this encounter
--- OUTSIDE RECORDS SUMMARY | 2024-04-22 11:14 | XMS_ITS | Encounter Summary ---
Author Organization [facility] Address [facility] [place] [address] Care Team Providers Care Prover Name Role Phone Carroll Fuentes DO Primary Care Provider [phone] Reason for Visit * Reason Comments Medication Refill Encounter Details Date Type Department Care Team (Late st Contact Info) Description 11/26/2014 Refill [place] [address] Anup Hawkins MD [facility] [place] [address] Social History Tobacco Use Types Packs/Day Years [...] on filedocumented in this encounter Care Teams Prover Relationship Specialty Start Date End Date Carroll Fuentes DO [address] [place] [address] PCP - General 09/23/11 10/20/22 documented as of this encounter
--- OUTSIDE RECORDS SUMMARY | 2024-04-22 11:14 | XMS_ITS | Encounter Summary ---
Author Organization [facility] Address [facility] [place] [address] Care Team Providers Care Driller Operator Name Role Phone AlfredoCarroll allison Primary Care Provider [phone] Reason for Visit * Reason Comments Follow-up Encounter Details Date Type Department Care Team (Late st Contact Info) Description 11/07/2013 9:30 AM EDT Office Visit Dermatology at [address] [address] Bashir Benitez MD [address] [place] [address], [facility] [place] [place] [address] Rosacea (Primary Dx) Social History Tobacco Use Types [...] Progress Notes * Bashir Benitez MD - 11/07/2013 9:44 AM EDT Problems: 1. Followup rosacea. 2. History of renal transplant. 3. History of IgA nephropathy. Adama follows up, and his rosacea is well controlled with just the topical metronidazole 0.75% cream. He needs refills. He prefers not to take oral doxycycline, having read about the potential for interaction with his Coumadin. Physical examination reveals a pleasant, 53-year-old gentleman today with no active rosacea. He has very mild rhinophyma and diffuse mild sebaceous hyperplasia over the cheeks and chin. Assessment and Plan: 1. Rosacea. a. Continue metronidazole 0.75% cream, applying on a daily b.i.d. basis; 45 grams dispensed with p.r.n. refills. 2. History of renal transplantation. a. I recommended I see the patient again in another year for repeat skin checkup. COPY: Carroll Fuentes D.O. documented in this encounter Plan of Treatment Not on file documented as of this encounter Visit Diagnoses Diagnosis Rosacea- Primary documented in this encounter Care Teams Driller Operator Relationship Specialty Start Date End Date Carroll Fuentes DO [address] [place] [address] [address] [facility] 1 [place] [address] PCP - General 09/23/11 10/20/22 documented as of this encounter
--- OUTSIDE RECORDS SUMMARY | 2024-04-22 11:14 | XMS_ITS | Encounter Summary ---
Author Organization [facility] Address [facility] [place] [address] Care Team Providers Care Blacking Wheel Tender Name Role Phone AlfredoCarroll allison Primary Care Provider [phone] Encounter Details Date Type Department Care Team (Latest Contact Info) Description 09/26/2013 7:51 PM EDT - 09/26/2013 11:59 PM EDT Hospital [place] [address] [facility] [place] [address] Discharge Disposition: Home Social History Tobacco Use [...] Date/Time Associated Diagnosis Comments TACROLIMUS LEVEL Routine 09/26/2013 12:0 0 PM EDT documented in this encounter Results * Tacrolimus level (09/26/2013 12:00 PM EDT) Tacrolimus 3.4 ng/mL BUSHRA HUERTAENNIUM Comment:Trough therapeutic: 5-15 ng/mL Blood specimen (specimen) 09/26/2013 12:00 PM EDT 09/28/2013 8:07 AM EDT Narrative Resulting Agency Comment Spec In Lab Anup Hawkins MD CHEMISTRY ORDERAB LES [facility] documented in this encounter Visit Diagnoses Not on filedocumented in this encounter Care Teams Blacking Wheel Tender Relationship Specialty Start Date End Date Carroll Fuentes DO [address] [place] [address] PCP - General 09/23/11 10/20/22 documented as of this encounter
--- OUTSIDE RECORDS SUMMARY | 2024-04-22 11:14 | XMS_ITS | Encounter Summary ---
Author Organization [facility] Address [facility] [place] [address] Care Team Providers Care Caddy Master Name Role Phone Carroll Fuentes DO Primary Care Provider Reason for Visit * Reason Onset Date Comments Medication Refill 08/09/2013 Encounter Details Date Type Department Care Team (Late st Contact Info) Description 08/09/2013 Refill [place] [address] Anup Hawkins MD [facility] [place] [address] S/P kidney transplant (Primary Dx) Social History Tobacco Use Types [...] this encounter Visit Diagnoses Diagnosis S/P kidney transplant- Primary Kidney replaced by transplant documented in this encounter Care Teams Caddy Master Relationship Specialty Start Date End Date Carroll Fuentes DO [address] [place], [place] [address] PCP - General 09/23/11 10/20/22 documented as of this encounter
--- OUTSIDE RECORDS SUMMARY | 2024-04-22 11:14 | XMS_ITS | Encounter Summary ---
[place] [address] Care Team Providers Care Pc Analyst Name Role Phone Carroll Fuentes DO Primary Care Provider [phone] Reason for Visit * Reason Onset Date Comments Medication Refill 07/17/2014 Encounter Details Date Type Department Care Team (Late st Contact Info) Description 07/17/2014 Telephone Solid [place] [id number] Tosha Castro, pre coder Refill Social History Tobacco Use Types Packs/Day [...] on filedocumented in this encounter Care Teams Pc Analyst Relationship Specialty Start Date End Date Carroll Fuentes DO [address] [place] [address] PCP - General 09/23/11 10/20/22 documented as of this encounter
--- OUTSIDE RECORDS SUMMARY | 2024-04-22 11:14 | XMS_ITS | Encounter Summary ---
Author Organization [facility] Address [facility] [place] [address] Care Team Providers Care Data Entry Name Role Phone AlfredoCarroll geiger Primary Care Provider [phone] Encounter Details Date Type Department Care Team (Late st Contact Info) Description 09/20/2013 External Results [place] [address] Anand Winn I, [place] [address] Social History Tobacco Use Types Packs/Day Years [...] Procedure Name Priority Date/Time Associated Diagnosis Comments [facility] TRANSPLANT FOLLOW UP LABS EXTERNAL RESULTS PANEL Routine 09/19/2013 documented in this encounter Results * (ABNORMAL) Transplant: Follow up lab request - External Results (09/19/2013) White Blood Cell 4.57(Exter nal Lab) Hemoglobin 12.0(Exter nal Lab) 13.5 - 17.5 Hematocrit 37.9(Exter nal Lab) 41.0 - 53.0 Amylase (External Lab) 25 - 110 Lipase (External Lab) 0 - 53 Blood Urea Nitrogen 36(Externa l Lab) Creatinine 2.0(Shake Splitter al Lab) Tacrolimus (External Lab) ABORH Type Historical Provider CHEMISTRY ORDERAB LES documented in this encounter Visit Diagnoses Not on filedocumented in this encounter Care Teams Data Entry Relationship Specialty Start Date End Date Carroll Fuentes DO [address] [place] [address] PCP - General 09/23/11 10/20/22 documented as of this encounter
--- OUTSIDE RECORDS SUMMARY | 2024-04-22 11:14 | XMS_ITS | Encounter Summary ---
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 Encounter Details Date Type Department Care Team (Late st Contact Info) Description 11/22/2013 11:00 AM EDT Follow-Up [place] [address] Anup Hawkins MD [facility] [place] [address] Transplanted kidney; Need for prophylactic immunotherapy; Hypothyroidism; Dyslipidemia Discharge Disposition: Home Social History Tobacco Use [...] Sign Reading Time Taken Comments Blood Pressure 125/82 11/22/2013 11:23 AM EDT Pulse 55 11/22/2013 11:23 AM EDT Temperature 36.3 ??C (97.4 ??F) 11/22/2013 11:23 AM E DT Respiratory Rate - - Oxygen Saturation - - Inhaled Oxygen Concentration - - Weight 83.7 kg (184 lb 9.6 oz) 11/22/2013 11:23 AM EDT Height 185.4 cm (6' 1) 11/22/2013 11:23 AM EDT Body Mass Index 24.36 11/22/2013 11:23 AM EDT documented in this encounter Progress Notes * Anup Hawkins MD - 11/14/2013 12:15 PM EDT [facility] Transplant Nephrology Follow Up Date: 11/22/2013 Patient: Adama Ram Transplant Date: 11/26/02 Organ(s) Kidney [place] organ UNOS diagnosis: IgA Nephropathy Transplant: Mr. Adama Ram is a White Not nor 53 y.o. male who is Status Post Kidney transplantation on 11/26/02. Post-op course was eventful delayed graft function, recurrent IgA nephropathy and Prograf toxicity, and adjustments in his anticonvulsants. Patient referred by Dr. Fuentes. Mr. Adama Ram presents to clinic for routine follow-up of care, patient is out 10 03/23 years from Kidney transplantation. Routine Health Maintenance: ??? Tetanus andTetanus booster UTD Vaccine (every 10 Years) ??? Colonoscopy Every 5 Years Yes 2011 ??? Influenza (Flu) Vaccine Yearly ( virus only) Yes ??? Hepatitis C Screening (B. [id number]) ??? Pneumovax Q5 years 2012 ??? Yearly ophthalmology exam Last year ??? Biannual dental exam (with antibiotic prophylaxis) Yes ??? Dermatology evaluation yearly Yes Carolina was on doxycyline x 2 weeks in May ??? Dexascan on periodic basis every 9 years (along with yearly 24 hour urine testing) No Additionally: Gender approiate yearly physicals, and regular check-ups with PCP. (Females -- Pap Smear (annually; if woman has undergone a hysterectomy and cervix removed the is no need for a speculum exam but a vaginal swab for histology is warranted for skin cancer; I prefer speculum exams as well for visual inspection for melanomas and other skin cancers. In the last 5 years 2 women have from malignant melanoma, primary in vagina,) Hpv (prior to age 21, series given once if pre tx (thisis a live virus) and Breast Ca Screen Every Year) (Males -- PSA every Year) Patient Active Problem List Diagnosis Code ??? Epilepsy 345.90 ??? End stage renal disease 585.6 ??? Gout 274.9 ??? Hypertension 401.9 ??? Left leg DVT 453.40 ??? Kidney replaced by transplant V42.0 ??? IgA nephropathy 583.9 ??? BCC (basal cell carcinoma of skin) 173.91 ??? Acne rosacea 695.3 ??? Nevus 216.9 ??? Rosacea 695.3 Past Medical History Diagnosis Date ??? DVT (deep venous thrombosis) ??? BP (high blood pressure) ??? Gout ??? TBI (traumatic brain injury) 1980 Past Surgical History Procedure Date ??? Created by interface Entered not Verified Procedure Date: 09/19/2010 ??? Kidney transplant KIDNEY TRANSPLANT / RECIPIENT/LT Procedure Date: 11/26/2002 ??? Us renal transplant biopsy 12/31/2010 ??? Layr clos wnd trunk, arm, leg 2.6-7.5 cm 04/19/2012 REPAIR INTERMEDIATE WOUND, (NO HANDS OR FEET) 2.6 TO 7.5CM, UPPER EXTREMITY performed by SABRINA SANCHEZ at [facility] MAIN OR ? ? Exc skin malig >4cm trunk, arm, leg 04/19/2012 EXC MALIGNANT LESION, MICHAEL > 4.0CM, TRUNK performed by SABRINA SANCHEZ at [facility] MAIN OR No family history on file. SOCIAL HISTORY: History Substance Use Topics ??? Smoking status: Former Smoker Types: Cigarettes Quit date: 12/03/2000 ??? Smokeless tobacco: Former User Quit date: 04/14/2001 ??? Alcohol Use: No Visit Vitals: BP 125/82 Pulse 55 Temp 36.3 ??C (97.4 ??F) (Oral) Ht 185.4 cm (6' 1) Wt 83.734 kg (184 lb 9.6 oz) BMI 24.36 kg/m2 Estimated Body mass index is 24.36 kg/(m^2) as calculated from the following: Height as of this encounter: 6' 1(1.854 m). Weight as of this encounter: 184 lb 9.6 oz(83.734 kg). Diagnoses: Encounter Diagnoses Name Primary? Transplanted kidney ??? Need for prophylactic immunotherapy Allergies: Benazepril hcl; Hydrochlorothiazide; and Pollen extracts Immunizations: Most Recent Immunizations Administered Date(s) Administered ??? Hepatitis B Vaccine, unspecified formulation 10/31/2001 ??? Influenza Vaccine w/Preservative, Split 04/20/2013 ??? Influenza Vaccine, Whole 04/09/2009 ??? Pneumococcal Polyvalent 23 05/23/2013 Current Meds: Current Outpatient Prescriptions Medication Sig Dispense Refill ??? levETIRAcetam (KEPPRA) 1,000 mg tablet take 1 [...] twice a day 120 capsule 11 ??? allopurinol (ZYLOPRIM) 100 mg tablet Take 1.5 tablets by mouth daily. Indications: Gout 45 tablet 11 ??? metroNIDAZOLE (METROCREAM) 0.75 % cream APPLY TO FACE TWICE DAILY NEEDED. 45 g 0 ??? DILTiazem (DILACOR XR) 120 mg 24 hr capsule take 1 capsule by mouth once daily 90 capsule 3 ??? levothyroxine (SYNTHROID) 88 mcg tablet Take 88 mcg by mouth daily. ??? losartan (COZAAR) 25 mg tablet Take 1 tablet by mouth daily. 90 tablet 3 ??? warfarin (COUMADIN) 5 mg tablet Take 2 tablets (10 mg) by mouth on , and 1.5 tablets (7.5 mg) on all other days. Weekly dose = 55 mg. Take at the same time each day, preferably between 5:00 and 6:00 PM. ??? AMOXICILLIN TRIHYDRATE (TRIMOX ORAL) Take 2,000 mg by mouth. 1 hour Prior to dental procedures ??? metoprolol tartrate (LOPRESSOR) 50 mg tablet Take 50 mg by mouth 3 times daily. Labs: Lab Results Component Value Date WBC 4.4 11/22/2013 HCT 32.1* 11/22/2013 HGB 10.6* 11/22/2013 PLATELET 203 11/22/2013 K 4.9 11/22/2013 CREATININE 2.15* 11/22/2013 BUN 48* 11/22/2013 GLUCOSE 99 05/23/2013 PHOS 3.6 11/22/2013 MAGNESIUM 0.72 11/22/2013 Urinalysis: Component Value Date/Time SPGRAVITYUA 1.011 11/22/2013 1026 PHUADIP 5.0 11/22/2013 1026 PROTEINUADIP 30* 11/22/2013 1026 GLUCOSEU Negative 11/22/2013 1026 KETONESUA Negative 11/22/2013 1026 UROBILIUADIP Normal 11/22/2013 1026 BLOODUADIP Trace* 11/22/2013 1026 NITRATEUA Negative 11/22/2013 1026 LEUKOESTERUA Negative 11/22/2013 1026 WBCUA <1 11/22/2013 1026 RBCU Not Present 11/22/2013 1026 BILIRUBINUA Negative 11/22/2013 1026 SEROLOGIES: Component Value Date/Time CMVIGG Neg 05/23/2013 0745 CMVIGM Neg 05/23/2013 0745 HPI: Mr. Adama Ram is a White Not nor 53 y.o. male who is Status Post Kidney transplantation on 11/26/02. Post-op course was eventful delayed graft function, recurrent IgA nephropathy and Prograf toxicity, and adjustments in his anticonvulsants. Adama returned to clinic with approx. A 10 lb weight loss which is volitional. He had no particular reason except he felt 'heavy'. 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 He notes no signs or symptoms referable to the graft or its dysfunction. He needs to see an eye doctor but has followed through with dental, skin, routine PE, flu shot, pneumovax, colo and annual PSA/SADAF. A previously timed urine revealed 24 hr protein of 682 mg, clearance of 27 cc/min/1.73 but thecreatinine excretion was less than 15 mg/kg/d (under collection) ROS: All review of systems in all organ systems were negative Physical Exam: Constitutional: obese, alert and not in acute distress HENT: ENT exam normal, no neck nodes or sinus tenderness, throat normal without erythema or exudateor sinuses non-tender Head: Normocephalic, without obvious abnormality, atraumatic Eyes: conjunctivae/corneas clear. PERRL, EOM's intact. Fundi benign. Neck: supple, no adenopathy and thyroid normal in size, no nodules or tenderness Cardiovascular: CVS exam BP noted to be well controlled today in office, S1, S2 normal, no gallop, no murmur, chest clear, no JVD, no HSM, no edema Pulmonary/Chest: Normal chest wall and respirations. Clear to auscultation. Abdominal: soft, non-tender, without masses or organomegaly, protuberant, normal bowel sounds, without guarding and without rebound Musculoskeletal: Spine ROM normal. Muscular strength intact. Neurological: no asymmetries, tremors Skin: mod rosacea, large edematous left arm, hand with tortuous AVF Assessment and Plan: Adama Ram is out 10 /12 years from Kidney transplantation. Mr. Adama Ram is maintaining fair graft function. Patient remains mildly dehydrated. Patient is encouraged to continue with 2 +liters of fluid intake per day. I also encouraged patient to keep up with all recommended health maintenance visits, routine lab testing and screenings. Immunosuppression reviewed and adjusted: Patient is on: mycophenolate and tacrolimus Lab Results Component Value Date TACROLIMUS <3.0 11/22/2013 Immunosuppression: Prograf: 1 mg twice daily. Will check today's level, when available, and adjust as needed. Cellcept 1000 mg twice daily. Hypertension Management: good Hyperlipidemia Management: Fair; HDL too low needs fiber, exercise Calcium and phosphorous Management: good Magnesium Management: good Renal tubular acidosis Ongoing but no need for Rx yet likely related to tacrolimus toxicity Hypothyroidism TSH is elevated to 7; likely needs higher dose of Synthroid to 100 mcg daily; He will discuss this with Dr. Fuentes Patient's Functional Status is: 80% Normal activity with effort: some symptoms of disease Recommendations: All age appropriate and post-transplant, routine health maintenance tests and screenings are strongly recommended. These include the above (noting that the time intervals are different than that of the non-transplant community,) but are not limited to, the for mentioned. RTC: Yearly visit to transplant clinic is recommended in addition to routine, post-transplant lab work Q 3 month. Mr. Adama Ram was given a standing order for above mentioned lab work at today's visit. documented in this encounter Plan of Treatment Not on file documented as of this encounter Procedures Procedure Name Priority Date/Time Associated Diagnosis Comments BK QUANT URINE RESULT STAT 11/22/2013 10:26 AM EDT Transplanted kidney Need for prophylactic immunotherapy BKV QUANT URINE STAT 11/22/2013 10:26 AM EDT Transplanted kidney Need for prophylactic immunotherapy CALCIUM CREATININE RATIO, RANDOM URINE STAT 11/22/2013 10:26 AM EDT Transplanted kidney Need for prophylactic immunotherapy PROTEIN/CREATININE RATIO, URINE STAT 11/22/2013 10:26 AM EDT Transplanted kidney Need for prophylactic immunotherapy PHOSPHORUS, URINE, RANDOM STAT 11/22/2013 10:26 AM EDT Transplanted kidney Need for prophylactic immunotherapy URINALYSIS WITH REFLEX CULTURE STAT 11/22/2013 10:26 AM EDT Transplanted kidney Need for prophylactic immunotherapy PTH STAT 11/22/2013 10:21 AM EDT Transplanted kidney Need for prophylactic immunotherapy CMP W/FASTING GLUCOSE STAT 11/22/2013 10:21 AM EDT Transplanted kidney Need for prophylactic immunotherapy DIFFERENTIAL, AUTOMATED STAT 11/22/2013 10:21 AM EDT TACROLIMUS LEVEL STAT 11/22/2013 10:2 1 AM EDT Transplanted kidney Need for prophylactic immunotherapy IRON AND TIBC STAT 11/22/2013 10:21 AM EDT Transplanted kidney Need for prophylactic immunotherapy 1,25-DIHYDROXYCHOLEC ALCIFEROL STAT 11/22/2013 10:21 AM EDT Transplanted kidney Need for prophylactic immunotherapy VITAMIN D, 25-HYDROXY STAT 11/22/2013 10:21 AM EDT Transplanted kidney Need for prophylactic immunotherapy PROTHROMBIN TIME STAT 11/22/2013 10:2 1 AM EDT Transplanted kidney Need for prophylactic immunotherapy RETICULOCYTE COUNT STAT 11/22/2013 10 :21 AM EDT Transplanted kidney Need for prophylactic immunotherapy CBC (WITH DIFF) STAT 11/22/2013 10:21 AM EDT Transplanted kidney Need for prophylactic immunotherapy URIC ACID STAT 11/22/2013 10:21 AM EDT Transplanted kidney Need for prophylactic immunotherapy TSH STAT 11/22/2013 10:21 AM EDT Transplanted kidney Need for prophylactic immunotherapy PHOSPHORUS STAT 11/22/2013 10:21 AM EDT Transplanted kidney Need for prophylactic immunotherapy MAGNESIUM STAT 11/22/2013 10:21 AM EDT Transplanted kidney Need for prophylactic immunotherapy FOLATE, SERUM STAT 11/22/2013 10:21 AM EDT Transplanted kidney Need for prophylactic immunotherapy FERRITIN STAT 11/22/2013 10:21 AM EDT Transplanted kidney Need for prophylactic immunotherapy VITAMIN B12 STAT 11/22/2013 10:21 AM EDT Transplanted kidney Need for prophylactic immunotherapy LIPID PANEL (REFLEX DIRECT LDL) STAT 11/22/2013 10:21 AM EDT Transplanted kidney Need for prophylactic immunotherapy CREATININE CLEARANCE, URINE, 24 HOUR Routine 11/21/2013 documented in this encounter Results * BK Quant Urine Result (11/22/2013 10:26 AM EDT) Pathologist [facility] BKV Urine Result Not Detected [facility] BKV Urine Interp BK Virus Urine Result Interpretation Result: BK Virus Not Detected log concentration: Not detected Assay Range: urine: 3.04-9.04 log copies/mL (1.1x10^3 - 1.1x10^9 copies/mL ) Results are reported as log copies/mL. ??Changes of less than 1.0 log between serial samples may not be clinically significant. Methods: Quantitative real-time polymerase chain reaction (PCR) with of viral DNA isolated from urine was performed using [employer]ense BKV(ASR) reagents and the [employer] 7500 Fast Real-Time PCR System. In addition, the PCR product sequence is confirmed using physical properties (melt curve analysis). This test was developed and its performance determined by the [facility]. It has not been cleared or approved by the U.S. Food and Drug Administration. This test is used for clinical purposes and should not be considered investigational or for research purposes. The Molecular Pathology Laboratory is certified by the Clinical Laboratory Improvement Act of 1988 and as such is allowed to perform high complexity clinical testing. BUSHRA DOYLE Comment: [VERIFIED DATE]11.24.13 Verified By:Nayeli Pugh (Electronic Signature) Urine specimen (specimen) 11/22/2013 10:26 AM EDT 11/22/2013 11:26 AM EDT Narrative Resulting Agency Comment Spec In Lab Anup Hawkins MD HEMATOLOGY ORDERA BLES BUSHRA BRADLEYRUDYIUM * (ABNORMAL) Protein/Creatinine Ratio, urine (11/22/2013 10:26 AM EDT) Creatinine, Urine 63 mg/dL CERNER MILLENNIUM Protein, Urine 56(H) 0 - 12 mg/dL CERNER MILLENNIUM Protein / Creatinine Ratio, Urine 0.9 ratio CERSHANNAN MILLENNIUM Urine specimen (specimen) 11/22/2013 10:26 AM EDT 11/22/2013 10:33 AM EDT Narrative Resulting Agency Comment Spec In Lab Anup Hawkins MD URINE ORDERABLES CERSHANNAN ALFREDIUM * Phosphorus, urine, random (11/22/2013 10:26 AM EDT) Phosphorus, Urine 31.3 mg/dL CERNER MILLENNIUM Urine specimen (specimen) 11/22/2013 10:26 AM EDT 11/22/2013 10:33 AM EDT Narrative Resulting Agency Comment Spec In Lab Anup Hawkins MD URINE ORDERABLES CERNER MILLENNIUM * Calcium Creatinine Ratio, random urine (11/22/2013 10:26 AM EDT) Calcium, Urine <0.8 mg/dL CERNE R MILLENNIUM Creatinine, Urine 63 mg/dL CERNER MILLENNIUM Calcium / Creatinine Ratio, Urine <0.01 ratio CERNER MILLENNIUM Urine specimen (specimen) 11/22/2013 10:26 AM EDT 11/22/2013 10:33 AM EDT Narrative Resulting Agency Comment Spec In Lab Anup Hawkins MD URINE ORDERABLES Performing Organization Address [facility] de Phone Number CERNER MILLENNIUM * (ABNORMAL) Urinalysis with microscopic (11/22/2013 10:26 AM EDT) Glucose, Urine Dipstick Negative Negative mg/dL CERNER MILLENNIUM Protein, Urine Dipstick 30(A) Neg mg/dL CERNER MILLENNIUM Bilirubin, Urine Dipstick Negative Negative mg/dL CERNER MILLENNIUM Comment: Clinical correlation required for positive Urine Bilirubin results as false positive may occur with some drugs and drug related products. If a false positive is suspected a serum total bilirubin should be considered if clinically indicated. Urobilinogen, Urine Dipstick Normal mg/dL CERNER MILLENNIUM pH, Urn (dipstick) 5.0 5.0 - 8.0 CERNER MILLENNIUM Blood, Urine Dipstick Trace(A) Neg mg/dL CERNER MILLENNIUM Ketone, Urine Dipstick Negative mg/dL CERNER MILLENNIUM Nitrite, Urine Dipstick Negative CERNER MILLENNIUM Leukocytes, Urine Dipstick Negative mcL CERNER MILLENNIUM Appearance, Urine Dipstick Clear Clear CERNER MILLENNIUM Specific [place] Urine Automated 1.011 1.002 - 1.030 CERNER MILLENNIUM Color, Urine Dipstick Light Yellow Yellow CERNER MILLENNIUM RBC, Urine Not Present 0 - 3 CERNER MILLENNIUM WBC, Urine <1 0 - 3 /HPF CERNER MILLENNIUM Bacteria, Urine Rare(A) None /HPF CERN ER MILLENNIUM Urine specimen (specimen) 11/22/2013 10:26 AM EDT 11/22/2013 10:33 AM EDT Narrative Resulting Agency Comment Spec In Lab Anup Hawkins MD URINE ORDERABLES CERNER MILLENNIUM * Differential, Automated (11/22/2013 10:21 AM EDT) Neutrophil % 66.4 34.0 - 71.0 % CERNER MILLENNIUM Neutrophil Absolute 2.90 1.50 - 6.30 x10(3)/mcL CERNER MILLENNIUM Lymph % 23.8 19.0 - 53.0 % CERNER MILLENNIUM Lymphocytes Abs 1.0 1.0 - 3.6 x10(3)/mcL CERNER MILLENNIUM Monocyte % 5.9 4.0 - 13.0 % CERNER MILLENNIUM Monocyte Abs 0.3 0.2 - 1.0 x10(3)/mcL CERNER MILLENNIUM Eos % 3.4 0.0 - 7.0 % CERNER MILLENNIUM Eosinophils Abs 0.2 0.0 - 0.5 x10(3)/mcL CERNER MILLENNIUM Basophil % 0.5 0.0 - 2.0 % CERNER MILLENNIUM Baso Absolute 0.0 0.0 - 0.2 x10(3)/mcL CERNER MILLENNIUM Immature Gran % 0.00 0.00 - 0.66 % CERNER MILLENNIUM Comment: Immature granulocytes(IG's)percentage and absolute count will include metamyelocytes, myelocytes, and promyelocytes. Blood smears from CBCs yielding IG's will be scanned manually for concordance. If this scan disagrees with the automated IG or if promyelocytes are noted, a manual differential will be performed. Immature Gran Absolute 0.00 0.00 - 0.05 x10(3)/mcL CERNER MILLENNIUM Blood specimen (specimen) 11/22/2013 10:21 AM EDT 11/22/2013 10:28 AM EDT Anup Hawkins MD HEMATOLOGY ORDERA BLES Performing Organization Address [facility] de Phone Number BUSHRA SIMONIUM * (ABNORMAL) Prothrombin Time (11/22/2013 10:21 AM EDT) Prothrombin Time 22.9(H) 12.0 - 15.0 sec CERNER MILLENNIUM Comment: [facility] Transfusion Committee Guidelines: INR less than 2.0, PTT less than OR equal to 43.5 seconds, or Fibrinogen greater than or equal to 100 mg/dl indicate adequate procoagulant activity for hemostasis in patients without underlying bleeding disorders. International Normalization Ratio 2.0(H) 0.9 - 1.1 CERNER MILLENNIUM Blood specimen (specimen) 11/22/2013 10:21 AM EDT 11/22/2013 10:28 AM EDT Narrative Resulting Agency Comment Spec In Lab Anup Hawkins MD HEMATOLOGY ORDERA BLES Performing Organization Address [facility] de Phone Number BUSHRA DOYLE * Vitamin B12 (11/22/2013 10:21 AM EDT) Vitamin B12 283 207 - 974 pg/mL CERNER MILLENNIUM Blood specimen (specimen) 11/22/2013 10:21 AM EDT 11/22/2013 10:28 AM EDT Narrative Resulting Agency Comment Spec In Lab Anup Hawkins MD CHEMISTRY ORDERAB LES Performing Organization Address [facility] Co de Phone Number BUSHRA HUERTAENNIUM * (ABNORMAL) Iron and TIBC (11/22/2013 10:21 AM EDT) Iron 82 45 - 160 mcg/dL CERNER MILLENNIUM TIBC 200(L) 250 - 450 mcg/dL CERNER MILLENNIUM Iron Saturation 41 20 - 50 % CERN ER MILLENNIUM Blood specimen (specimen) 11/22/2013 10:21 AM EDT 11/22/2013 10:28 AM EDT Narrative Resulting Agency Comment Spec In Lab Anup Hawkins MD CHEMISTRY ORDERAB LES [facility] * Folate, serum (11/22/2013 10:21 AM EDT) Folate 14.3 4.6 - 34.8 ng/mL CERNER MILLENNIUM Blood specimen (specimen) 11/22/2013 10:21 AM EDT 11/22/2013 10:28 AM EDT Narrative Resulting Agency Comment Spec In Lab Anup Hawkins MD CHEMISTRY ORDERAB LES Performing Organization Address [facility]/ZIP Co de Phone Number [facility] BRADLEYENNIUM * Ferritin (11/22/2013 10:21 AM EDT) Ferritin 242 30 - 400 ng/mL [facility] MILLENNIUM Comment: Pediatric reference ranges not verified at [facility], interpret with caution. Reference ranges for females greater than 50 years of age approach values for men, i.e., 30-400 ng/mL. Blood specimen (specimen) 11/22/2013 10:21 AM EDT 11/22/2013 10:28 AM EDT Narrative Resulting Agency Comment Spec In Lab Anup Hawkins MD CHEMISTRY ORDERAB LES Performing Organization Address [facility] Co de Phone Number [facility] ALFREDIUM * (ABNORMAL) TSH (11/22/2013 10:21 AM EDT) Thyroid Stimulating Hormone 6.65(H) 0.27 - 4.20 mcIU/mL CERNER MILLENNIUM Blood specimen (specimen) 11/22/2013 10:21 AM EDT 11/22/2013 10:28 AM EDT Narrative Resulting Agency Comment Spec In Lab Anup Hawkins MD CHEMISTRY ORDERAB LES [facility] ALFREDIUM * 1,25-dihydroxycholecalciferol (11/22/2013 10:21 AM EDT) Vit D 1,25 Dihydroxy (NOVEMBER) 36 18 - 64 pg/mL [facility] Comment: Test Performed by: [address] [address] Stocking Inspector: Herber Tomas III, M.D. Blood specimen (specimen) 11/22/2013 10:21 AM EDT 11/22/2013 1:30 PM EDT Narrative Resulting Agency Comment Spec In Lab Anup Hawkins MD LAB SEND OUT ORDE RABLES [facility] * VIT D Total Evaluation (11/22/2013 10:21 AM EDT) Pathologist [facility] Vitamin D Total 25 OH 34 30 - 100 ng/mL [facility] Comment: Deficient <10 ng/mL Insufficient 10 to 29 ng/mL Sufficient 30 to 100 ng/mL Potential Intoxication >100 ng/mL According to the [place] National Osteoporosis Foundation, Vitamin D concentrations >30 ng/mL are sufficient to protect bone health. ??The National Kidney Foundation has similarly stated that patients with Vitamin D concentrations <30ng/mL should be considered to be insufficient or deficient. http://[employer]/DHnatlkidneyfoundation http://[employer]/DHMCVitD The [employer] Vitamin D Immunoassay detects both 25-OH Vitamin D2 and 25-OH Vitamin D3, but only a total Vitamin D concentration is reported. Blood specimen (specimen) 11/22/2013 10:21 AM EDT 11/22/2013 10:28 AM EDT Narrative Resulting Agency Comment Spec In Lab Anup Hawkins MD CHEMISTRY ORDERAB LES Performing Organization Address [facility]/ZIP Co de Phone Number [facility] * (ABNORMAL) PTH (11/22/2013 10:21 AM EDT) Pathologist [facility] Parathyroid Hormone 73(H) 15 - 65 pg/mL [facility] Blood specimen (specimen) 11/22/2013 10:21 AM EDT 11/22/2013 10:28 AM EDT Narrative Resulting Agency Comment Spec In Lab Anup Hawkins MD CHEMISTRY ORDERAB LES [facility] * Tacrolimus level (11/22/2013 10:21 AM EDT) Tacrolimus <3.0 ng/mL [facility] Comment:Trough therapeutic: 5-15 ng/mL Blood specimen (specimen) 11/22/2013 10:21 AM EDT 11/22/2013 12:08 PM EDT Narrative Resulting Agency Comment Spec In Lab Anup Hawkins MD CHEMISTRY ORDERAB LES Performing Organization Address City/[facility] Co de Phone Number [facility] * Uric acid (11/22/2013 10:21 AM EDT) Uric Acid 5.5 3.5 - 8.5 mg/dL [facility] Blood specimen (specimen) 11/22/2013 10:21 AM EDT 11/22/2013 10:28 AM EDT Narrative Resulting Agency Comment Spec In Lab Anup Hawkins MD CHEMISTRY ORDERAB LES Performing Organization Address [facility] Hospital/[facility] Co de Phone Number [facility] * Phosphorus (11/22/2013 10:21 AM EDT) Phosphorus 3.6 2.5 - 4.5 mg/dL [facility] Blood specimen (specimen) 11/22/2013 10:21 AM EDT 11/22/2013 10:28 AM EDT Narrative Resulting Agency Comment Spec In Lab Anup Hawkins MD CHEMISTRY ORDERAB LES Performing Organization Address City/[facility]/ZIP Co de Phone Number [facility] * Magnesium (11/22/2013 10:21 AM EDT) Magnesium 0.72 0.69 - 1.07 mmol/L [facility] Blood specimen (specimen) 11/22/2013 10:21 AM EDT 11/22/2013 10:28 AM EDT Narrative Resulting Agency Comment Spec In Lab Anup Hawkins MD CHEMISTRY ORDERAB LES [facility] * (ABNORMAL) Lipid panel (fasting) (11/22/2013 10:21 AM EDT) Cholesterol, Total 90 <=199 mg/dL [facility] Comment: Recommendations of the NCEP Adult Treatment Panel for the following risk cutoff thresholds for the [place] Citizen Of [place] population: Desirable: <200 mg/dL Borderline High: 200-239 mg/dL High: > or = 240 mg/dL Triglyceride 81 <=149 mg/dL [facility] Comment: Reference Range: Normal triglycerides: ??<150 mg/dL Borderline high: ??150-199 mg/dL High: ??200-499 mg/dL Very high: ??>or=215 mg/dL RAYMOND 2001; 285(19):7449-1398 HDL Cholesterol 25(L) >=40 mg/dL [facility] Comment: Reference range: ??Low HDL: ?? < 40 mg/dL ??Normal: ?40-60 mg/dL ??Desirable: > 60 mg/dL RAYMOND 2001; 285(19):0462-0836 LDL Cholesterol 49 <=99 mg/dL [facility] Comment: Reference range: ?? Optimal: ?<100 mg/dL ?? Near Optimal/Above Optimal: ?? 100-129 mg/dL ?? Borderline high: ?130-159 mg/dL ?? High: ? 160-189 mg/dL ?? Very high: ?>ys=420 mg/dL RAYMOND 2001: 285(19):2591-2051 Cholesterol/HDL Ratio 3.6 ratio [facility] Comment: A Cholesterol to HDL ratio below 4:1 is desirable. ??Studies suggest that increased CAD risk occurs at ratios above 5 for females and above 6 for men. ? Citizen Of [place] Heart Association ??(http://www.americanheart.org) ? Marizol Int Med, 1994; 121:641 ? AM J Med, 1998; 105(1A):48S Blood specimen (specimen) 11/22/2013 10:21 AM EDT 11/22/2013 10:28 AM EDT Narrative Resulting Agency Comment Spec In Lab Anup Hawkins MD CHEMISTRY ORDERAB LES Performing Organization Address [facility]/ZIP Co de Phone Number [facility] * (ABNORMAL) Reticulocyte Count (11/22/2013 10:21 AM EDT) Reticulocyte % 0.4(L) 0.5 - 2.4 % [facility]ILL[facility] Retic Abs # 0.020(L) 0.027 - 0.095 x10(6)/mc L [facility] Immature Retic% 1.4(L) 2.3 - 15.9 % [facility] Reticulated Hgb 31.4 28.5 - 38.9 pg [facility] Immature Plt % 2.5 0.0 - 7.4 % [facility] Blood specimen (specimen) 11/22/2013 10:21 AM EDT 11/22/2013 10:28 AM EDT Narrative Resulting Agency Comment Spec In Lab Anup Hawkins MD HEMATOLOGY ORDERA BLES Performing Organization Address [facility]/ZIP Co de Phone Number [facility] * (ABNORMAL) CBC (with Diff) (11/22/2013 10:21 AM EDT) White Blood Cell 4.4 4.0 - 10.0 x10(3)/mc L [facility] Red Blood Cell 3.68(L) 4.63 - 6.08 x10(6)/mc L [facility] Hemoglobin 10.6(L) 13.7 - 17.5 gm/dL [facility] Hematocrit 32.1(L) 40.0 - 51.0 % [facility] MILL[facility]NI[facility] Mean Cell Volume 87.2 79.0 - 92.0 fL [facility]ILLENNI[facility] Mean Cell Hemoglobin 28.8 25.6 - 32.2 pg [facility] MILLENNIUM Mean Cell Hemoglobin Concentration 33.0 32.0 - 36.5 gm/dL [facility] Platelet 203 145 - 370 x10(3)/mc L [facility] RDW Standard Deviation 42.6 35.0 - 46.0 fL [facility] RDW coefficient of variation 13.3 10.9 - 14.4 % [facility] MILLENNI[facility] Mean Platelet Volume 9.6 9.0 - 12.0 fL [facility] Blood specimen (specimen) 11/22/2013 10:21 AM EDT 11/22/2013 10:28 AM EDT Narrative Resulting Agency Comment Spec In Lab Anup Hawkins MD HEMATOLOGY VJ DAMON [facility] * (ABNORMAL) CMP w/fasting Glucose (11/22/2013 10:21 AM EDT) Glucose Fasting 98 65 - 99 mg/dL [facility] Comment: ?Fasting* Glucose Interpretive Criteria Normal ?65-99 [...] of Diabetes Mellitus, Position Statement from the Citizen Of [place] Diabetes Association. ??Diabetes Care, Volume 33, Supplement 1, Jul 2009 Blood Urea Nitrogen 48(H) 10 - 20 mg/dL [facility] Creatinine 2.15(H) 0.80 - 1.50 mg/dL [facility]NI[facility] Comment: Please note that the pediatric reference intervals supplied above were not validated at [facility]. Results from pediatric patients should be interpreted in conjunction to the patient's age, height and muscle mass. Sodium 136 135 - 145 mmol/L [facility]ILLENNI[facility] Potassium 4.9 3.5 - 5.0 mmol/L [facility] Comment: Please note: ??Patients with WBC >100,000 may have falsely elevated Potassium levels. ??For accurate Potassium quantification in these patients send serum separator tube (gold top) for subsequent determinations. ??Contact the Clinical Chemistry Laboratory if there are any questions. Chloride 107 98 - 107 mmol/L [facility]ILLENNI[facility] Carbon Dioxide 16(L) 22 - 31 mmol/L [facility] MILLENNI[facility] Anion Gap 13 5 - 15 mmol/L [facility]ILL[facility]NI[facility] Calcium 8.5 8.5 - 10.5 mg/dL [facility] Protein, Total 6.1(L) 6.4 - 8.3 gm/dL [facility] Albumin 4.1 3.2 - 5.2 gm/dL [facility] Aspartate Aminotransferase 27 0 - 39 unit/L [facility] MILLENNI[facility] Alanine Aminotransferase 15 0 - 55 unit/L [facility]ILL[facility] Alkaline Phosphatase 103 40 - 120 unit/L [facility] MILLENNI[facility] Bilirubin, Total 0.3 0.2 - 1.3 mg/dL [facility]ILLEN[facility] Bilirubin, Direct 0.1 0.0 - 0.3 mg/dL [facility] MILLENNI[facility] Est Glomerular Filtration Rate 32(L) >=60 [facility] Comment: This estimated GFR (eGFR) value was [...] the following links into your internet browser. 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
--- OUTSIDE RECORDS SUMMARY | 2024-04-22 11:14 | XMS_ITS | Encounter Summary ---
Author Organization Pending Sale To [facility] Address [facility] [address] Care Team Providers Care Soloist Dancer Name Role Phone Carroll Fuentes DO Primary Care Provider [phone] Reason for Visit * Reason Comments Medication Refill Encounter Details Date Type Department Care Team (Late st Contact Info) Description 12/07/2013 Refill [place] [address] Anup Hawkins MD [facility] [place] [address] Social History Tobacco Use Types Packs/Day Years [...] on filedocumented in this encounter Care Teams Soloist Dancer Relationship Specialty Start Date End Date Carroll Fuentes DO [address] [place] [address] PCP - General 09/23/11 10/20/22 documented as of this encounter
--- OUTSIDE RECORDS SUMMARY | 2024-04-22 11:14 | XMS_ITS | Encounter Summary ---
Author Organization [facility] Address [facility] [place] [address] Care Team Providers Care Jordan Worker Name Role Phone AlfredoCarroll geiger Primary Care Provider [phone] Encounter Details Date Type Department Care Team (Late st Contact Info) Description 02/21/2014 External Results [place] [address] Anand Winn I, [place] [address] Social History Tobacco Use Types Packs/Day Years [...] Procedure Name Priority Date/Time Associated Diagnosis Comments [facility] TRANSPLANT FOLLOW UP LABS EXTERNAL RESULTS PANEL Routine 02/20/2014 documented in this encounter Results * (ABNORMAL) Transplant: Follow up lab request - External Results (02/20/2014) White Blood Cell 3.87(Exter nal Lab) Hemoglobin 9.9(In Store Demonstrator al Lab) 13.5 - 17.5 Hematocrit 32.5(Exter nal Lab) 41.0 - 53.0 Amylase (External Lab) Lipase (External Lab) Blood Urea Nitrogen 42(Externa l Lab) Creatinine 2.0(In Store Demonstrator al Lab) Tacrolimus ABORH Type Historical Provider CHEMISTRY ORDERAB LES documented in this encounter Visit Diagnoses Not on filedocumented in this encounter Care Teams Jordan Worker Relationship Specialty Start Date End Date Carroll Fuentes DO [facility] [address] [facility] [address] [place] [address] PCP - General 09/23/11 10/20/22 documented as of this encounter
--- OUTSIDE RECORDS SUMMARY | 2024-04-22 11:14 | XMS_ITS | Encounter Summary ---
Author Organization [facility] Address [facility] [place] [address] Care Team Providers Care Manufacturing Finance Manager Name Role Phone AlfredoCarroll allison Primary Care Provider Encounter Details Date Type Department Care Team (Latest Contact Info) Description 05/23/2014 8:48 AM EST - 05/23/2014 11:59 PM [facility] Hospital [place] [address] Anup Hawkins MD [facility] [place] [address] Discharge Disposition: Home Social History Tobacco Use [...] Date End Date hydrALAZINE (APRESOLINE) 50 mg tablet take 1 tablet by mouth twice a day 180 tablet 2 02/21/2014 11/26/2014 CELLCEPT 250 mg capsuleIndications:S/ P kidney transplant Take 4 capsules by mouth 2 times daily. Kidney Transplant V42.0. Transplant Date; 11-26-02 240 capsule 11 02/13/2014 10/22/2014 DILTiazem (DILACOR XR) 120 mg 24 hr capsule take 1 capsule by mouth once daily 90 capsule 3 01/31/2014 11/26/2014 warfarin (COUMADIN) 5 mg tablet Take 1 tablet (5 mg) by mouth on , and 1.5 tablets (7.5 mg) on all other days. Weekly dose = 50 mg. Take at the same time each day, preferably between 5:00 and 6:00 PM. 60 tablet 11 01/11/2014 05/16/2017 levETIRAcetam (KEPPRA) 500 mg tablet Take 1 pill in AM and 2 pills in PM 90 tablet 12 12/13/2013 06/12/2014 losartan (COZAAR) 25 mg tablet take 1 tablet by mouth once daily 90 tablet 3 12/07/2013 11/28/2014 allopurinol (ZYLOPRIM) 100 mg tabletIndications:gou t Take 1.5 tablets by mouth daily. Indications: Gout 45 tablet 11 11/24/2013 06/13/2014 PROGRAF 1 mg capsule take 1 capsule by mouth twice a day 120 capsule 11 07/03/2013 07/17/2014 metroNIDAZOLE (METROCREAM) 0.75 % creamIndications:[place] cea APPLY TO FACE TWICE DAILY NEEDED. 45 g 0 04/18/2013 11/28/2014 levothyroxine (SYNTHROID) 100 mcg Tablet Take 100 [...] Date/Time Associated Diagnosis Comments TACROLIMUS LEVEL Routine 05/23/2014 12:4 0 PM EST documented in this encounter Results * Tacrolimus level (05/23/2014 12:40 PM EST) Pathologist [facility] Tacrolimus 3.5 ng/mL [facility] Comment:Trough therapeutic: 5-15 ng/mL Blood specimen (specimen) 05/23/2014 12:40 PM EST 05/24/2014 11:57 AM EST Narrative Resulting Agency Comment Spec In Lab Anup Hawkins MD CHEMISTRY ORDERAB LES Performing Organization Address City/State/[facility] Co pa Phone Number [facility] documented in this encounter Visit Diagnoses Not on filedocumented in this encounter Care Teams Manufacturing Finance Manager Relationship Specialty Start Date End Date Carroll Fuentes DO [address] [place] [address] PCP - General 09/23/11 10/20/22 documented as of this encounter
--- OUTSIDE RECORDS SUMMARY | 2024-04-22 11:14 | XMS_ITS | Encounter Summary ---
Author Organization [facility] Address [facility] [place] [address] Care Team Providers Care Wound Nurse Name Role Phone AlfredoCarroll allison Primary Care Provider Encounter Details Date Type Department Care Team (Latest Contact Info) Description 03/06/2014 8:31 PM EDT - 03/06/2014 11:59 PM EDT Hospital [place] [address] Anup Hawkins MD [facility] [place] [address] Discharge Disposition: Home Social History Tobacco Use [...] times daily. Kidney Transplant V42.0. Transplant Date; 05-18-03 240 capsule 11 02/13/2014 10/22/2014 DILTiazem (DILACOR [...] Date/Time Associated Diagnosis Comments TACROLIMUS LEVEL Routine 03/06/2014 11:4 5 AM EDT documented in this encounter Results * Tacrolimus level (03/06/2014 11:45 AM EDT) Tacrolimus <3.0 ng/mL [facility] Comment:Trough therapeutic: 5-15 ng/mL Blood specimen (specimen) 03/06/2014 11:45 AM EDT 03/07/2014 8:14 AM EDT Narrative Resulting Agency Comment Spec In Lab Anup Hawkins MD CHEMISTRY ORDERAB LES Performing Organization Address City/State/[facility] Co de Phone Number [facility] documented in this encounter Visit Diagnoses Not on filedocumented in this encounter Care Teams Wound Nurse Relationship Specialty Start Date End Date Carroll Fuentes DO [address] [place] [address] [address] [place] [address] PCP - General 09/23/11 10/20/22 documented as of this encounter
--- OUTSIDE RECORDS SUMMARY | 2024-04-22 11:14 | XMS_ITS | Encounter Summary ---
Author Organization [facility] Address [facility] [place] [address] Care Team Providers Care Aircraft Magneto Mechanic Name Role Phone AlfredoCarroll geiger Primary Care Provider [phone] Encounter Details Date Type Department Care Team (Late st Contact Info) Description 08/24/2013 External Results Solid [place] [address] Anand Winn I, [place] [address] Social History Tobacco Use Types Packs/Day Years [...] Procedure Name Priority Date/Time Associated Diagnosis Comments [facility] TRANSPLANT FOLLOW UP LABS EXTERNAL RESULTS PANEL Routine 08/22/2013 documented in this encounter Results * (ABNORMAL) Transplant: Follow up lab request - External Results (08/22/2013) White Blood Cell 4.43 Hemoglobin 11.6(A) 13.5 - 17.5 Hematocrit 36.6(A) 41.0 - 53.0 Amylase 25 - 110 Lipase 0 - 53 Blood Urea Nitrogen 42 Creatinine 2.2 Tacrolimus ABORH Type Historical Provider CHEMISTRY ORDERAB LES documented in this encounter Visit Diagnoses Not on filedocumented in this encounter Care Teams Aircraft Magneto Mechanic Relationship Specialty Start Date End Date Carroll Fuentes DO [address] [facility] [address] [place] [address] PCP - General 09/23/11 10/20/22 documented as of this encounter
--- OUTSIDE RECORDS SUMMARY | 2024-04-22 11:14 | XMS_ITS | Encounter Summary ---
Author Organization [facility] Address [facility] [place] [address] Care Team Providers Care Christian Ministries Professor Name Role Phone Carroll Fuentes DO Primary Care Provider Reason for Visit * Reason Onset Date Comments Medication Refill 08/11/2013 Encounter Details Date Type Department Care Team (Late st Contact Info) Description 08/11/2013 Refill [place] [address] Anup Hawkins MD [facility] [place] [address] HTN (hypertension) (Primary Dx) Social History Tobacco Use Types [...] as of this encounter Visit Diagnoses Diagnosis HTN (hypertension)- Primary Unspecified essential hypertension documented in this encounter Care Teams Christian Ministries Professor Relationship Specialty Start Date End Date Carroll Fuentes DO [address] [place], [place] [address] PCP - General 09/23/11 10/20/22 documented as of this encounter
--- OUTSIDE RECORDS SUMMARY | 2024-04-22 11:14 | XMS_ITS | Encounter Summary ---
Author Organization [facility] Address [facility] [place] [address] Care Team Providers Care Sewer And Drain Technician Name Role Phone Carroll Fuentes DO Primary Care Provider Reason for Visit * Reason Onset Date Comments Medication Refill 02/13/2014 Encounter Details Date Type Department Care Team (Late st Contact Info) Description 02/13/2014 Refill [place] [address] Anup Hawkins MD [facility] [place] [address] S/P kidney transplant (Primary Dx) Social History [...] transplant documented in this encounter Care Teams Sewer And Drain Technician Relationship Specialty Start Date End Date Carroll Fuentes DO [address] [place], [place] [address] PCP - General 09/23/11 10/20/22 documented as of this encounter
--- OUTSIDE RECORDS SUMMARY | 2024-04-22 11:14 | XMS_ITS | Encounter Summary ---
Author Organization [facility] Address [facility] [place] [address] Care Team Providers Care Science Tutor Name Role Phone Carroll Fuentes DO Primary Care Provider [phone] Reason for Visit * Reason Comments Medication Refill Encounter Details Date Type Department Care Team (Late st Contact Info) Description 01/31/2014 Refill [place] [address] Anup Hawkins MD [facility] [place] [address] Social History Tobacco Use Types Packs/Day Years [...] on filedocumented in this encounter Care Teams Science Tutor Relationship Specialty Start Date End Date Carroll Fuentes DO [address] [place] [address] PCP - General 09/23/11 10/20/22 documented as of this encounter
--- OUTSIDE RECORDS SUMMARY | 2024-04-22 11:14 | XMS_ITS | Encounter Summary ---
[place] [address] Care Team Providers Care Search Engine Marketing Specialist Name Role Phone Carroll Fuentes DO Primary Care Provider Encounter Details Date Type Department Care Team (Late st Contact Info) Description 05/30/2014 External Results [place] [address] Social History Tobacco Use Types Packs/Day Years [...] Procedure Name Priority Date/Time Associated Diagnosis Comments [facility] TRANSPLANT FOLLOW UP LABS EXTERNAL RESULTS PANEL Routine 05/23/2014 documented in this encounter Results * Transplant: Follow up lab request - External Results (05/23/2014) Historical Provider CHEMISTRY ORDERAB LES documented in this encounter Visit Diagnoses Not on filedocumented in this encounter Care Teams Search Engine Marketing Specialist Relationship Specialty Start Date End Date Carroll Fuentes DO [address] [place] [address] PCP - General 09/23/11 10/20/22 documented as of this encounter
--- OUTSIDE RECORDS SUMMARY | 2024-04-22 11:14 | XMS_ITS | Encounter Summary ---
Author Organization [facility] Address [facility] [place] [address] Care Team Providers Care Employee Benefits Manager Name Role Phone AlfredoCarroll allison Primary Care Provider Encounter Details Date Type Department Care Team (Latest Contact Info) Description 10/23/2013 8:40 PM EDT - 10/23/2013 11:59 PM EDT Hospital [place] [address] Anup Hawkins MD [facility] [place] [address] Discharge Disposition: Home Social History Tobacco Use [...] Date/Time Associated Diagnosis Comments TACROLIMUS LEVEL Routine 10/23/2013 8:15 AM EDT documented in this encounter Results * Tacrolimus level (10/23/2013 8:15 AM EDT) Tacrolimus 4.0 ng/mL [facility] Comment:Trough therapeutic: 5-15 ng/mL Blood specimen (specimen) 10/23/2013 8:15 AM EDT 10/24/2013 8:02 AM EDT Narrative Resulting Agency Comment Spec In Lab Anup Hawkins MD CHEMISTRY ORDERAB LES [facility] documented in this encounter Visit Diagnoses Not on filedocumented in this encounter Care Teams Employee Benefits Manager Relationship Specialty Start Date End Date Carroll Fuentes DO [address] [place] [address] PCP - General 09/23/11 10/20/22 documented as of this encounter
--- OUTSIDE RECORDS SUMMARY | 2024-04-22 11:14 | XMS_ITS | Encounter Summary ---
Author Organization [facility] Address [facility] [place] [address] Care Team Providers Care Merit System Director Name Role Phone AlfredoCarroll allison Primary Care Provider [phone] Reason for Visit * Reason Onset Date Comments Medication Refill 08/14/2013 Encounter Details Date Type Department Care Team (Late st Contact Info) Description 08/14/2013 Refill Dermatology at [facility] [address] [place] [address] Rock Khan III, MD [facility] [place] [address] Rosacea (Primary Dx) Social History Tobacco Use [...] Miscellaneous Notes * Telephone Encounter - Odalis Leon - 08/31/2013 10:26 AM EST Tried to call patient to schedule an appointment - no answer on phone and no voicemail available - letter has been mailed. Odalis * Telephone Encounter - Odalis Leon - 08/14/2013 11:05 AM EST This is a previous Dr. Dickerson patient documented in this encounter Plan of Treatment Not on file documented as of this encounter Visit Diagnoses Diagnosis Rosacea- Primary documented in this encounter Care Teams Merit System Director Relationship Specialty Start Date End Date Carroll Fuentes DO [address] [place] [address] PCP - General 09/23/11 10/20/22 documented as of this encounter
--- OUTSIDE RECORDS SUMMARY | 2024-04-22 11:14 | XMS_ITS | Encounter Summary ---
Author Organization [facility] [place] [address] Care Team Providers Care Core Composer Machine Tender Name Role Phone AlfredoCarroll allison Primary Care Provider [phone] Encounter Details Date Type Department Care Team (Late st Contact Info) Description 02/13/2014 Telephone [place] [address] Leisa Angulo Social History Tobacco Use Types Packs/Day Years [...] encounter Miscellaneous Notes * Telephone Encounter - Leisa Angulo - 02/13/2014 10:18 AM EDT Transplant Edge Burnisher Note: notified that patient needed PA for Cellcept. Placed a call to [facility] and per pharmacist they need a new script for Cellcept due to [place] Medicaid only allowing 5 refills per script. No PA required at this time. EDH message sent to nurse to send new script for this patient. documented in this encounter Plan of Treatment Not on file documented as of this encounter Visit Diagnoses Not on filedocumented in this encounter Care Teams Core Composer Machine Tender Relationship Specialty Start Date End Date Carroll Fuentes DO [address] [facility] [place] [address] PCP - General 09/23/11 10/20/22 documented as of this encounter
--- OUTSIDE RECORDS SUMMARY | 2024-04-22 11:14 | XMS_ITS | Encounter Summary ---
Author Organization [facility] Address [facility] [place] [address] Care Team Providers Care Didactic Instructor Name Role Phone AlfredoCarroll allison Primary Care Provider [phone] Encounter Details Date Type Department Care Team (Latest Contact Info) Description 02/20/2014 8:43 PM EDT - 02/20/2014 11:59 PM EDT Hospital [place] [address] Anup Hawkins MD [facility] [place] [address] Discharge Disposition: Home Social History Tobacco Use [...] Sig Dispensed Refills Start Date End Date CELLCEPT 250 mg capsuleIndications:S/ P kidney transplant [...] Indications: Gout 45 tablet 11 11/24/2013 06/13/2014 hydralazine (APRESOLINE) 50 mg tabletIndications:HTN (hypertension) Take 1 tablet by mouth 2 times daily. 180 tablet 1 08/11/2013 02/21/2014 PROGRAF 1 mg capsule take 1 capsule [...] Date/Time Associated Diagnosis Comments TACROLIMUS LEVEL Routine 02/20/2014 10:1 5 AM EDT documented in this encounter Results * Tacrolimus level (02/20/2014 10:15 AM EDT) Tacrolimus 4.5 ng/mL [facility] Comment:Trough therapeutic: 5-15 ng/mL Blood specimen (specimen) 02/20/2014 10:15 AM EDT 02/21/2014 8:15 AM EDT Narrative Resulting Agency Comment Spec In Lab Anup Hawkins MD CHEMISTRY ORDERAB LES Performing Organization Address City/State/[facility] Co de Phone Number [facility] documented in this encounter Visit Diagnoses Not on filedocumented in this encounter Care Teams Didactic Instructor Relationship Specialty Start Date End Date Carroll Fuentes DO [address] [place] [address] [address] [place] [address] PCP - General 09/23/11 10/20/22 documented as of this encounter
--- OUTSIDE RECORDS SUMMARY | 2024-04-22 11:14 | XMS_ITS | Encounter Summary ---
Author Organization [facility] Address [facility] [place] [address] Care Team Providers Care String Cutter Name Role Phone Carroll Fuentes DO Primary Care Provider [phone] Reason for Visit * Reason Onset Date Comments Medication Refill 06/12/2014 Encounter Details Date Type Department Care Team (Late st Contact Info) Description 06/12/2014 [place] [address] Alfonzo Miles MD [facility] [address] Social History Tobacco Use Types Packs/Day Years [...] on filedocumented in this encounter Care Teams String Cutter Relationship Specialty Start Date End Date Carroll Fuentes DO [address] [place] [address] PCP - General 09/23/11 10/20/22 documented as of this encounter
--- OUTSIDE RECORDS SUMMARY | 2024-04-22 11:14 | XMS_ITS | Encounter Summary ---
Author Organization [facility] [place] [address] Care Team Providers Care Narrow Gauge Engineer Name Role Phone AlfredoCarroll allison Primary Care Provider [phone] Reason for Visit * Reason Comments Kidney Transplant Follow-up Diarrhea hospital follow up Encounter Details Date Type Department Care Team (Late st Contact Info) Description 04/10/2014 10:30 AM EDT Office Visit [place] [address] Anup Hawkins MD [facility] [address] [place] [address] Transplanted kidney; Need for prophylactic immunotherapy; Infectious diarrhea in adult patient Discharge Disposition: Home Social History Tobacco Use [...] Sign Reading Time Taken Comments Blood Pressure 123/79 04/10/2014 10:17 AM EDT Pulse 48 04/10/2014 10:17 AM EDT Temperature 36.3 ??C (97.3 ??F) 04/10/2014 10:17 AM E DT Respiratory Rate 18 04/10/2014 10:17 AM EDT Oxygen Saturation - - Inhaled Oxygen Concentration - - Weight 83.6 kg (184 lb 6.4 oz) 04/10/2014 10:17 AM EDT Height - - Body Mass Index 25.01 12/13/2013 11:22 AM EDT documented in this encounter Progress Notes * Anup Hawkins MD - 04/09/2014 10:30 AM EDT [facility] Transplant Nephrology Follow Up Date: 04/10/2014 Patient: Adama Ram Transplant Date: 11/26/02 Organ(s) Kidney [place] organ diagnosis: IgA Nephropathy Days from Transplant: 4151 (11 years 5 months) Transplant ID: Mr. Adama Ram is a White Not nor 53 y.o. 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 Post-op course was eventful delayed graft function, recurrent IgA nephropathy and Prograf toxicity, and adjustments in his anticonvulsants. Patient referred by Dr. Fuentes. Mr. Adama Ram presents to clinic for routine follow-up of care, patient is out (11 years 5 months) from Kidney transplantation. History of Present Illness: Patient was hospitalized from 04/01 to 04/04 in [facility] for intractable diarrhea and dehydration. He started taking imodium on 03/23 for diarrhea (2 caps/day), went away and then came back on 03/28, restart taking imodium again 2-3 caps/days, (non- bloody, no fever chills, no abd pain). No nausea, vomiting. Decided to go to the hospital because of the diarrhea, feeling terrible (cant explain it, does not remember), does not remember what he was told reg diarrhea. According to Adama his workup was negative for any pathogen that was treatable. Now feels better but having 1 loose BM/day, still taking imodium 2 caps/day. BP has been 100- 120/50- 80s, mostly 110 (systolic). His weight dropped more than 25 lb. He has regained some but not all of the lost weight. His appetite and fluid intake is normal yet he is only drinking water. No new meds. Changed seizure meds as per Dr Miles but then forgot thereafter and is still taking his old dose. From Chart Review: 12/13/2013 Alfonzo Miles MD Impression: ?? The patient is doing quite well neurologically. He has posttraumatic epilepsy. Seizures are fully controlled. I think he should stay on Keppra indefinitely. I note that his level has gradually risen over the years, possibly because of a slight decline in renal function. He has been seizure free for many years. I think we should reduce the dose little from 1000 mg twice a day to 500 mg in morning and 1000 mg at night. I discussed this with him and have rewritten his prescription. Routine Health Maintenance: ??? Tetanus andTetanus booster UTD Vaccine (every 10 Years). Not sure when. ??? Colonoscopy Every 5 Years. Up to date. ??? Influenza (Flu) Vaccine Yearly ( virus only), Up to date. ??? Hepatitis C Screening (B. [id number]) ??? Pneumovax Q5 years. Up to date. ??? Yearly ophthalmology exam. Up to date (11/2013) ??? Biannual dental exam (with antibiotic prophylaxis).Up to date (1 month ago), did take ABX priorto going to dentist. ??? Dermatology evaluation yearly. Last time he saw derm was this summer 2013. No new cancers noted. ??? Dexascan on periodic basis every 9 years (along with yearly 24 hour urine testing) Additionally: Gender approiate yearly physicals, and regular [...] live virus) and Breast Ca Screen Every Year). SADAF/PSA pending. (Males -- PSA every Year) Patient Active [...] Us renal transplant biopsy 12/31/2010 ??? Layr mari wnd trunk, arm, leg 2.6-7.5 cm 04/19/2012 REPAIR INTERMEDIATE WOUND, (NO HANDS OR FEET) 2.6 TO 7.5CM, UPPER EXTREMITY performed by SABRINA SANCHEZ at [facility] MAIN OR ? ? Exc skin malig >4cm trunk, arm, leg 04/19/2012 EXC MALIGNANT LESION, MICHAEL > 4.0CM, TRUNK performed by SABRINA SANCHEZ at [facility] MAIN OR No family history on file. SOCIAL HISTORY: History Substance Use Topics ??? Smoking status: Former Smoker Types: Cigarettes Quit date: 12/03/2000 ??? Smokeless tobacco: Former User Quit date: 04/14/2001 ??? Alcohol Use: No Visit Vitals: BP 123/79 Pulse 48 Temp 36.3 ??C (97.3 ??F) (Oral) Resp 18 Wt 83.643 kg (184 lb 6.4 oz) Estimated Body mass index is 25.00 kg/(m^2) as calculated from the following: Height as of 12/13/13: 6' 0[Reported[(1.829 m). Weight as of this encounter: 184 lb 6.4 oz(83.643 kg). Allergies: Benazepril hcl; Hydrochlorothiazide; and Pollen extracts Immunizations: Most Recent Immunizations Administered Date(s) Administered ??? Hepatitis B Vaccine, unspecified formulation 10/31/2001 ??? Influenza Vaccine w/Preservative, Split 04/20/2013 ??? Influenza Vaccine, Whole 04/09/2009 ??? Pneumococcal Polyvalent 23 05/23/2013 Current Meds: Current Outpatient Prescriptions Medication Sig Dispense Refill ??? hydrALAZINE (APRESOLINE) 50 mg tablet take 1 tablet by mouth twice a day 180 tablet 2 ??? CELLCEPT 250 mg capsule Take 4 capsules by mouth 2 times daily. Kidney Transplant V42.0. Transplant Date; 11-26-02 240 capsule 11 ??? DILTiazem (DILACOR XR) 120 mg 24 hr capsule take 1 capsule by mouth once daily 90 capsule 3 ??? warfarin (COUMADIN) 5 mg tablet Take 1 tablet (5 mg) by mouth on , and 1.5 tablets (7.5mg) on all other days. Weekly dose = 50 mg. Take at the same time each day, preferably between 5:00and 6:00 PM. 60 tablet 11 ??? levETIRAcetam (KEPPRA) 500 mg tablet Take 1 pill in AM and 2 pills in PM 90 tablet 12 ??? losartan (COZAAR) 25 mg tablet take 1 tablet by mouth once daily 90 tablet 3 ??? allopurinol (ZYLOPRIM) 100 mg tablet Take 1.5 tablets by mouth daily. Indications: Gout 45 tablet 11 ??? PROGRAF 1 mg capsule take 1 capsule by mouth twice a day 120 capsule 11 ??? metroNIDAZOLE (METROCREAM) 0.75 % cream APPLY TO FACE TWICE DAILY NEEDED. 45 g 0 ??? levothyroxine (SYNTHROID) 88 mcg tablet Take 88 mcg by mouth daily. ??? AMOXICILLIN TRIHYDRATE (TRIMOX ORAL) Take 2,000 mg by mouth. 1 hour Prior to dental procedures ??? metoprolol tartrate (LOPRESSOR) 50 mg tablet Take 50 mg by mouth 3 times daily. Labs: Lab Results Component Value Date WBC 4.1 04/10/2014 HCT 30.0* 04/10/2014 HGB 9.8* 04/10/2014 PLATELET 184 04/10/2014 K 3.8 04/10/2014 CREATININE 1.72* 04/10/2014 BUN 26* 04/10/2014 GLUCOSE 99 05/23/2013 PHOS 2.7 04/10/2014 MAGNESIUM 0.68* 04/10/2014 Urinalysis: Component Value Date/Time SPGRAVITYUA 1.016 04/10/2014 0949 PHUADIP 5.0 04/10/2014 0949 PROTEINUADIP 100* 04/10/2014 0949 GLUCOSEU Negative 04/10/2014 0949 KETONESUA Negative 04/10/2014 0949 UROBILIUADIP Normal 04/10/2014 0949 BLOODUADIP Negative 04/10/2014 0949 NITRATEUA Negative 04/10/2014 0949 LEUKOESTERUA Negative 04/10/2014 0949 WBCUA <1 04/10/2014 0949 RBCU <1 04/10/2014 0949 BILIRUBINUA Negative 04/10/2014 0949 SEROLOGIES: Component Value Date/Time CMVIGG Neg 05/23/201345 CMVIGM Neg 05/23/2013 0745 Review of Systems: Negative except one loose unformed stool daily. Physical Exam: Constitutional: thin, healthy and Alert; pale HENT: neck without nodes Head: Normocephalic, without obvious abnormality, atraumatic Eyes: conjunctivae and sclerae normal Neck: supple and no adenopathy Cardiovascular: CVS exam BP noted to be well controlled today in office, S1, S2 normal, no gallop, no murmur, + edema Pulmonary/Chest: Normal. Abdominal: soft, non-tender, without masses or organomegaly; hyperactive bowel sounds Musculoskeletal: negative, LUE AVF w/some edema on arm/hand; right LE edematous enlg due to previous DVT Neurological: Consolidates info well Skin: Left temporal rash w/sloughed areas covered by band-aid (says he saw Derm recently and uses an unknown cream for it; Dr. Benitez) Assessment, Plan and Recommendations: Adama Ram is Status Post Kidney transplantation. Mr. Adama Ram is maintaining good graft function. Patient remains mildly dehydrated. Patient is encouraged to continue with 3 +liters of fluidintake per day. I gave him our info sheet about using fluids with solutes. I also encouraged patient to keep up with all recommended health maintenance visits, routine lab testing and screenings. Immunosuppression: Prograf: 1 mg twice daily. Will check today's level, when available, and adjust as needed. Cellcept 1000 mg twice daily. Decreased to 750 mg PO BID empirically due to diarrheal problems. I asked that he avoid lactose containing foods until his BMs normalize. Anemia. - Hb < 10 g/dL today. Hypothyroidism - Increase levothyroxine to 1.5 tabs (88 mcg/tab)/day which I asked that he do at his LAST visit!!!! Hypertension Management: good Hyperlipidemia Management: good Calcium and phosphorous Management: good Magnesium Management: good Patient's Functional Status is: 80% Normal activity with effort: some symptoms of disease All age appropriate and post-transplant, routine health maintenance tests and screenings are strongly recommended. These include the above (noting that the time intervals are different than that of the non-transplant community,) but are not limited to, the for mentioned. RTC: 11/2014 ( year f/u) labs quarterly. New info sheets and standing orders provided. Pharmacy needs addressed. no concerns today. documented in this encounter Plan of Treatment Not on file documented as of this encounter Procedures Procedure Name Priority Date/Time Associated Diagnosis Comments PTH STAT 04/10/2014 9:52 AM EDT Transplanted kidney Need for prophylactic immunotherapy CMP W/FASTING GLUCOSE STAT 04/10/2014 9:52 AM EDT Transplanted kidney Need for prophylactic immunotherapy HEMOGRAM STAT 04/10/2014 9:52 AM EDT Transplanted kidney Need for prophylactic immunotherapy DIFFERENTIAL, AUTOMATED STAT 04/10/2014 9:52 AM EDT Transplanted kidney Need for prophylactic immunotherapy TACROLIMUS LEVEL STAT 04/10/2014 9:52 AM EDT Transplanted kidney Need for prophylactic immunotherapy IRON AND TIBC STAT 04/10/2014 9:52 AM EDT Transplanted kidney Need for prophylactic immunotherapy 1,25-DIHYDROXYCHOLEC ALCIFEROL STAT 04/10/2014 9:52 AM EDT Transplanted kidney Need for prophylactic immunotherapy VITAMIN D, 25-HYDROXY STAT 04/10/2014 9:52 AM EDT Transplanted kidney Need for prophylactic immunotherapy PROTHROMBIN TIME STAT 04/10/2014 9:52 AM EDT Transplanted kidney Need for prophylactic immunotherapy RETICULOCYTE COUNT STAT 04/10/2014 9: 52 AM EDT Transplanted kidney Need for prophylactic immunotherapy CBC (WITH DIFF) STAT 04/10/2014 9:52 AM EDT Transplanted kidney Need for prophylactic immunotherapy URIC ACID STAT 04/10/2014 9:52 AM EDT Transplanted kidney Need for prophylactic immunotherapy T3 TOTAL STAT 04/10/2014 9:52 AM EDT TSH STAT 04/10/2014 9:52 AM EDT Transplanted kidney Need for prophylactic immunotherapy T4, FREE STAT 04/10/2014 9:52 AM EDT PHOSPHORUS STAT 04/10/2014 9:52 AM EDT Transplanted kidney Need for prophylactic immunotherapy MAGNESIUM STAT 04/10/2014 9:52 AM EDT Transplanted kidney Need for prophylactic immunotherapy FOLATE, SERUM STAT 04/10/2014 9:52 AM EDT Transplanted kidney Need for prophylactic immunotherapy FERRITIN STAT 04/10/2014 9:52 AM EDT Transplanted kidney Need for prophylactic immunotherapy VITAMIN B12 STAT 04/10/2014 9:52 AM EDT Transplanted kidney Need for prophylactic immunotherapy LIPID PANEL (REFLEX DIRECT LDL) STAT 04/10/2014 9:52 AM EDT Transplanted kidney Need for prophylactic immunotherapy PROTEIN/CREATININE RATIO, URINE STAT 04/10/2014 9:49 AM EDT Transplanted kidney Need for prophylactic immunotherapy URINALYSIS WITH REFLEX CULTURE STAT 04/10/2014 9:49 AM EDT Transplanted kidney Need for prophylactic immunotherapy documented in this encounter Results * T3 Total (04/10/2014 9:52 AM EDT) T3 Total 77 75 - 170 ng/dL CERNER MILLENNIUM Blood specimen (specimen) 04/10/2014 9:52 AM EDT 04/10/2014 12:43 PM EDT Narrative Resulting Agency Comment Spec In Lab Anup Hawkins MD CHEMISTRY ORDERAB LES CERNER BRADLEYENNIUM * T4, free (04/10/2014 9:52 AM EDT) Free T4 1.47 0.90 - 1.60 ng/dL CERNER MILLENNIUM Blood specimen (specimen) 04/10/2014 9:52 AM EDT 04/10/2014 12:43 PM EDT Narrative Resulting Agency Comment Spec In Lab Anup Hawkins MD CHEMISTRY ORDERAB LES Performing Organization Address City/[facility]/ZIP Co de Phone Number CERNER MILLENNIUM * (ABNORMAL) Differential, Automated (04/10/2014 9:52 AM EDT) Pathologist [facility] Neutrophil % 71.5(H) 34.0 - 71.0 % CERNER MILLENNIUM Neutrophil Absolute 2.95 1.50 - 6.30 x10(3)/mc L CERNER MILLENNIUM Lymph % 20.1 19.0 - 53.0 % CERNER MILLENNIUM Lymphocytes Abs 0.8(L) 1.0 - 3.6 x10(3)/mc L CERNER MILLENNIUM Monocyte % 5.1 4.0 - 13.0 % CERNER MILLENNIUM Monocyte Abs 0.2 0.2 - 1.0 x10(3)/mc L CERNER MILLENNIUM Eos % 3.1 0.0 - 7.0 % CERNER MILLENNIUM Eosinophils Abs 0.1 0.0 - 0.5 x10(3)/mc L CERNER MILLENNIUM Basophil % 0.2 0.0 - 2.0 % CERNER MILLENNIUM Baso Absolute 0.0 0.0 - 0.2 x10(3)/mc L CERNER MILLENNIUM Immature Gran % 0.00 0.00 - 0.66 % CERNER MILLENNIUM Comment: Immature granulocytes(IG's)percentage and absolute count will include metamyelocytes, myelocytes, and promyelocytes. Blood smears from CBCs yielding IG's will be scanned manually for concordance. If this scan disagrees with the automated IG or if promyelocytes are noted, a manual differential will be performed. Immature Gran Absolute 0.00 0.00 - 0.05 x10(3)/mc L CERNER MILLENNIUM Blood specimen (specimen) 04/10/2014 9:52 AM EDT 04/10/2014 9:57 AM EDT Narrative Resulting Agency Comment Spec In Lab Anup Hawkins MD HEMATOLOGY ORDERA BLES Performing Organization Address City/[facility]/ZIP Co de Phone Number CERSHANNAN SIMONIUM * (ABNORMAL) Hemogram (04/10/2014 9:52 AM EDT) White Blood Cell 4.1 4.0 - 10.0 x10(3)/mc L CERNER MILLENNIUM Red Blood Cell 3.31(L) 4.63 - 6.08 x10(6)/mc L CERNER MILLENNIUM Hemoglobin 9.8(L) 13.7 - 17.5 gm/dL CERNER MILLENNIUM Hematocrit 30.0(L) 40.0 - 51.0 % CERNER MILLENNIUM Mean Cell Volume 90.6 79.0 - 92.0 fL CERNER MILLENNIUM Mean Cell Hemoglobin 29.6 25.6 - 32.2 pg CERNER MILLENNIUM Mean Cell Hemoglobin Concentration 32.7 32.0 - 36.5 gm/dL CERNER MILLENNIUM Platelet 184 145 - 370 x10(3)/mc L CERNER MILLENNIUM RDW Standard Deviation 44.9 35.0 - 46.0 fL CERNER MILLENNIUM RDW coefficient of variation 13.5 10.9 - 14.4 % CERNER MILLENNIUM Mean Platelet Volume 9.4 9.0 - 12.0 fL CERNER MILLENNIUM Blood specimen (specimen) 04/10/2014 9:52 AM EDT 04/10/2014 9:57 AM EDT Narrative Resulting Agency Comment Spec In Lab Anup Hawkins MD HEMATOLOGY ORDERA BLES [facility] * VIT D Total Evaluation (04/10/2014 9:52 AM EDT) Vitamin D Total 25 OH 36 30 - 100 ng/mL [facility] Comment: Deficient <10 ng/mL Insufficient 10 to 29 ng/mL Sufficient 30 to 100 ng/mL Potential Intoxication >100 ng/mL According to the [place] National Osteoporosis Foundation, Vitamin D concentrations >30 ng/mL are sufficient to protect bone health. ??The National Kidney Foundation has similarly stated that patients with Vitamin D concentrations <30ng/mL should be considered to be insufficient or deficient. http://[employer]/DHnatlkidneyfoundation http://[employer]/DHQoizaVitD The [employer] iSYS Vitamin D Immunoassay detects both 25-OH Vitamin D2 and 25-OH Vitamin D3, but only a total Vitamin D concentration is reported. Blood specimen (specimen) 04/10/2014 9:52 AM EDT 04/10/2014 9:57 AM EDT Narrative Resulting Agency Comment Spec In Lab Anup Hawkins MD CHEMISTRY ORDERAB LES Performing Organization Address [facility] Co de Phone Number [facility] * 1,25-dihydroxycholecalciferol (04/10/2014 9:52 AM EDT) Vit D 1,25 Dihydroxy (NOVEMBER) 37 18 - 64 pg/mL [facility] Comment: Test Performed by: [place] [address] Virology Teacher: Wolf Love M.D. Blood specimen (specimen) 04/10/2014 9:52 AM EDT 04/10/2014 10:51 AM EDT Narrative Resulting Agency Comment Spec In Lab Anup Hawkins MD LAB SEND OUT ORDE RABLES Performing Organization Address City/[facility]/ZIP Co de Phone Number [facility] * PTH (04/10/2014 9:52 AM EDT) Parathyroid Hormone 37 15 - 65 pg/mL CERNER MILLENNIUM Blood specimen (specimen) 04/10/2014 9:52 AM EDT 04/10/2014 9:57 AM EDT Narrative Resulting Agency Comment Spec In Lab Anup Hawkins MD CHEMISTRY ORDERAB LES BUSHRA HUERTAENNIUM * Vitamin B12 (04/10/2014 9:52 AM EDT) Vitamin B12 255 207 - 974 pg/mL CERNER MILLENNIUM Blood specimen (specimen) 04/10/2014 9:52 AM EDT 04/10/2014 9:57 AM EDT Narrative Resulting Agency Comment Spec In Lab Anup aHwkins MD CHEMISTRY ORDERAB LES Performing Organization Address [facility] Co de Phone Number BUSHRA HUERTAENNIUM * (ABNORMAL) Iron and TIBC (04/10/2014 9:52 AM EDT) Iron 62 45 - 160 mcg/dL CERNER MILLENNIUM TIBC 177(L) 250 - 450 mcg/dL [facility] Iron Saturation 35 20 - 50 % [facility] MILLENNIUM Blood specimen (specimen) 04/10/2014 9:52 AM EDT 04/10/2014 9:57 AM EDT Narrative Resulting Agency Comment Spec In Lab Anup Hawkins MD CHEMISTRY ORDERAB LES Performing Organization Address City[facility]/ZIP Co de Phone Number BUSHRA HUERTAENNIUM * Folate, serum (04/10/2014 9:52 AM EDT) Folate 14.0 4.6 - 34.8 ng/mL CERNER MILLENNIUM Blood specimen (specimen) 04/10/2014 9:52 AM EDT 04/10/2014 9:57 AM EDT Narrative Resulting Agency Comment Spec In Lab Anup Hawkins MD CHEMISTRY ORDERAB LES CERNER MILLENNIUM * Ferritin (04/10/2014 9:52 AM EDT) Ferritin 236 30 - 400 ng/mL BUSHRA SIMONIUM Comment: Pediatric reference ranges not verified at [facility], interpret with caution. Reference ranges for females greater than 50 years of age approach values for men, i.e., 30-400 ng/mL. Blood specimen (specimen) 04/10/2014 9:52 AM EDT 04/10/2014 9:57 AM EDT Narrative Resulting Agency Comment Spec In Lab Anup Hawkins MD CHEMISTRY ORDERAB LES Performing Organization Address [facility] Co de Phone Number [facility] HUERTADIGN[facility] * (ABNORMAL) TSH (04/10/2014 9:52 AM EDT) Thyroid Stimulating Hormone 6.50(H) 0.27 - 4.20 mcIU/mL BUSHRA SIMONIUM Blood specimen (specimen) 04/10/2014 9:52 AM EDT 04/10/2014 9:57 AM EDT Narrative Resulting Agency Comment Spec In Lab Anup Hawkins MD CHEMISTRY ORDERAB LES Performing Organization Address [facility] de Phone Number BUSHRA DOYLE * (ABNORMAL) Prothrombin Time (04/10/2014 9:52 AM EDT) Prothrombin Time 23.5(H) 12.5 - 15.5 sec BUSHRA SIMONIUM Comment: [facility] Transfusion Committee Guidelines: INR less than 2.0, PTT less than OR equal to 43.5 seconds, or Fibrinogen greater than or equal to 100 mg/dl indicate adequate procoagulant activity for hemostasis in patients without underlying bleeding disorders. International Normalization Ratio 1.9(H) 0.9 - 1.1 BUSHRA SIMONIUM Blood specimen (specimen) 04/10/2014 9:52 AM EDT 04/10/2014 9:57 AM EDT Narrative Resulting Agency Comment Spec In Lab Anup Hawkins MD HEMATOLOGY ORDERA BLES Performing Organization Address City/[facility] Co de Phone Number [facility] * Tacrolimus level (04/10/2014 9:52 AM EDT) Tacrolimus 3.5 ng/mL [facility] Comment:Trough therapeutic: 5-15 ng/mL Blood specimen (specimen) 04/10/2014 9:52 AM EDT 04/10/2014 12:13 PM EDT Narrative Resulting Agency Comment Spec In Lab Anup Hawkins MD CHEMISTRY ORDERAB LES Performing Organization Address [facility] Co de Phone Number [facility] * Uric acid (04/10/2014 9:52 AM EDT) Uric Acid 4.3 3.5 - 8.5 mg/dL [facility] Blood specimen (specimen) 04/10/2014 9:52 AM EDT 04/10/2014 9:57 AM EDT Narrative Resulting Agency Comment Spec In Lab Anup Hawkins MD CHEMISTRY ORDERAB LES Performing Organization Address City/[facility] Co de Phone Number [facility] * Phosphorus (04/10/2014 9:52 AM EDT) Phosphorus 2.7 2.5 - 4.5 mg/dL [facility] Blood specimen (specimen) 04/10/2014 9:52 AM EDT 04/10/2014 9:57 AM EDT Narrative Resulting Agency Comment Spec In Lab Anup Hawkins MD CHEMISTRY ORDERAB LES Performing Organization Address [facility] Co de Phone Number [facility] * (ABNORMAL) Magnesium (04/10/2014 9:52 AM EDT) Magnesium 0.68(L) 0.69 - 1.07 mmol/L [facility] Blood specimen (specimen) 04/10/2014 9:52 AM EDT 04/10/2014 9:57 AM EDT Narrative Resulting Agency Comment Spec In Lab Anup Hawkins MD CHEMISTRY ORDERAB LES BUSHRA DOYLE * (ABNORMAL) Lipid panel (fasting) (04/10/2014 9:52 AM EDT) Cholesterol, Total 73 <=199 mg/dL CERNER MILLENNIUM Comment: Recommendations of the NCEP Adult Treatment Panel for the following risk cutoff thresholds for the [place] population: Desirable: <200 mg/dL Borderline High: 200-239 mg/dL High: > or = 240 mg/dL Triglyceride 66 <=149 mg/dL CERNER MILLENNIUM Comment: Reference Range: Normal triglycerides: ??<150 mg/dL Borderline high: ??150-199 mg/dL High: ??200-499 mg/dL Very high: ??>dl=659 mg/dL RAYMOND 2001; 285(19):1014-3565 HDL Cholesterol 22(L) >=40 mg/dL CER NER MILLENNIUM Comment: Reference range: ??Low HDL: ?? < 40 mg/dL ??Normal: ?40-60 mg/dL ??Desirable: > 60 mg/dL RAYMOND 2001; 285(19):1194-7869 LDL Cholesterol 38 <=99 mg/dL CER NER MILLENNIUM Comment: Reference range: ?? Optimal: ?<100 mg/dL ?? Near Optimal/Above Optimal: ?? 100-129 mg/dL ?? Borderline high: ?130-159 mg/dL ?? High: ? 160-189 mg/dL ?? Very high: ?>uq=831 mg/dL RAYMOND 2001: 285(19):1400-5166 Cholesterol/HDL Ratio 3.3 ratio CERNER MILLENNIUM Comment: A Cholesterol to HDL ratio below 4:1 is desirable. ??Studies suggest that increased CAD risk occurs at ratios above 5 for females and above 6 for men. ? [place] Heart Association ??(http://www.americanheart.org) ? Marizol Int Med, 1994; 121:641 ? AM J Med, 1998; 105(1A):48S Blood specimen (specimen) 04/10/2014 9:52 AM EDT 04/10/2014 9:57 AM EDT Narrative Resulting Agency Comment Spec In Lab Anup Hawkins MD CHEMISTRY ORDERAB LES Performing Organization Address [facility] de Phone Number CERNER MILLENNIUM * (ABNORMAL) Reticulocyte Count (04/10/2014 9:52 AM EDT) Reticulocyte % 0.6 0.5 - 2.4 % CERNER MILLENNIUM Retic Abs # 0.020(L) 0.027 - 0.095 x10(6)/mc L CERNER MILLENNIUM Immature Retic% 3.4 2.3 - 15.9 % CERNER MILLENNIUM Reticulated Hgb 31.1 28.5 - 38.9 pg CERNER MILLENNIUM Immature Plt % 2.5 0.0 - 7.4 % CERNER MILLENNIUM Blood specimen (specimen) 04/10/2014 9:52 AM EDT 04/10/2014 9:57 AM EDT Narrative Resulting Agency Comment Spec In Lab Anup Hawkins MD HEMATOLOGY ORDERA BLES Performing Organization Address [facility] de Phone Number CERNER MILLENNIUM * (ABNORMAL) CMP w/fasting Glucose (04/10/2014 9:52 AM EDT) Glucose Fasting 95 65 - 99 mg/dL CERNER MILLENNIUM Comment: ?Fasting* Glucose Interpretive Criteria Normal [...] of Diabetes Mellitus, Position Statement from the [employer]. ??Diabetes Care, Volume 33, Supplement 1, Jul 2009 Blood Urea Nitrogen 26(H) 10 - 20 mg/dL CERNER MILLENNIUM Creatinine 1.72(H) 0.80 - 1.50 mg/dL CERNER MILLENNIUM Comment: Please note that the pediatric reference intervals supplied above were not validated at [facility]. Results from pediatric patients should be interpreted in conjunction to the patient's age, height and muscle mass. Sodium 143 135 - 145 mmol/L CERNER MILLENNIUM Potassium 3.8 3.5 - 5.0 mmol/L CERNER MILLENNIUM Comment: Please note: ??Patients with WBC >100,000 may have falsely elevated Potassium levels. ??For accurate Potassium quantification in these patients send serum separator tube (gold top) for subsequent determinations. ??Contact the Clinical Chemistry Laboratory if there are any questions. Chloride 112(H) 98 - 107 mmol/L CERNER MILLENNIUM Carbon Dioxide 20(L) 22 - 31 mmol/L CERNER MILLENNIUM Anion Gap 11 5 - 15 mmol/L CERNER MILLENNIUM Calcium 8.4(L) 8.5 - 10.5 mg/dL CERNER MILLENNIUM Protein, Total 6.0(L) 6.4 - 8.3 gm/dL CERNER MILLENNIUM Albumin 3.8 3.2 - 5.2 gm/dL CERNER MILLENNIUM Aspartate Aminotransferase 16 0 - 39 unit/L CERNER MILLENNIUM Alanine Aminotransferase 11 0 - 55 unit/L CERNER MILLENNIUM Alkaline Phosphatase 102 40 - 120 unit/L CERNER MILLENNIUM Bilirubin, Total 0.2 0.2 - 1.3 mg/dL CERNER MILLENNIUM Bilirubin, Direct 0.1 0.0 - 0.3 mg/dL CERNER MILLENNIUM Est Glomerular Filtration Rate 42(L) >=60 CERNER MILLENNIUM Comment: This estimated GFR [...] the following links into your internet browser. [email or web address] Blood specimen (specimen) 04/10/2014 9:52 AM EDT 04/10/2014 9:57 AM EDT Narrative Resulting Agency Comment Spec In Lab Anup Hawkins MD CHEMISTRY ORDERAB LES Performing Organization Address [facility] Co de Phone Number CERSan Diego OperaENNIUM * (ABNORMAL) Protein/Creatinine Ratio, urine (04/10/2014 9:49 AM EDT) Creatinine, Urine 100 mg/dL CERNER MILLENNIUM Protein, Urine 92(H) 0 - 12 mg/dL CERNER MILLENNIUM Protein / Creatinine Ratio, Urine 0.9 ratio CERNER MILLENNIUM Urine specimen (specimen) 04/10/2014 9:49 AM EDT 04/10/2014 9:54 AM EDT Narrative Resulting Agency Comment Spec In Lab Anup Hawkins MD URINE ORDERABLES Performing Organization Address [facility] de Phone Number CERNER CalibrusENNIUM * (ABNORMAL) Urinalysis with microscopic (04/10/2014 9:49 AM EDT) Glucose, Urine Dipstick Negative Negative mg/dL CERNER MILLENNIUM Protein, Urine Dipstick 100(A) Negative mg/dL CERNER MILLENNIUM Bilirubin, Urine Dipstick Negative Negative mg/dL CERNER MILLENNIUM Comment: Clinical correlation required for positive Urine Bilirubin results as false positive may occur with some drugs and drug related products. If a false positive is suspected a serum total bilirubin should be considered if clinically indicated. Urobilinogen, Urine Dipstick Normal Normal mg/dL CERNER MILLENNIUM pH, Urn (dipstick) 5.0 5.0 - 8.0 CERNER MILLENNIUM Blood, Urine Dipstick Negative Negative mg/dL CERNER MILLENNIUM Ketone, Urine Dipstick Negative Negative mg/dL CERNER MILLENNIUM Nitrite, Urine Dipstick Negative Negative CERNER MILLENNIUM Leukocytes, Urine Dipstick Negative Negative mcL CERNER MILLENNIUM Appearance, Urine Dipstick Clear Clear CERNER MILLENNIUM Specific Frost Urine Automated 1.016 1.002 - 1.030 CERNER MILLENNIUM Color, Urine Dipstick Yellow Yellow CERNER MILLENNIUM RBC, Urine <1 0 - 3 /HPF CERNER MILLENNIUM WBC, Urine <1 0 - 3 /HPF CERNER MILLENNIUM Urine specimen (specimen) 04/10/2014 9:49 AM EDT 04/10/2014 9:54 AM EDT Narrative Resulting Agency Comment Spec In Lab Anup Hawkins MD URINE ORDERABLES [facility] documented in this encounter Visit Diagnoses Diagnosis 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
--- OUTSIDE RECORDS SUMMARY | 2024-04-22 11:14 | XMS_ITS | Encounter Summary ---
Author Organization [facility] Address [facility] [place] [address] Care Team Providers Care Mold Car Pusher Name Role Phone AlfredoCarroll allison Primary Care Provider [phone] Reason for Visit * Reason Comments Kidney Transplant Follow-up Immunotherapy Encounter Details Date Type Department Care Team (Late st Contact Info) Description 11/28/2014 10:00 AM EDT Follow-Up [place] [address] Anup Hawkins MD [facility] [place] [address] Kidney replaced by transplant; Need for prophylactic immunotherapy; CKD (chronic kidney disease), stage IV Discharge Disposition: Home Social History Tobacco Use [...] Sign Reading Time Taken Comments Blood Pressure 121/85 11/28/2014 10:04 AM EDT Pulse 52 11/28/2014 10:04 AM EDT Temperature - - Respiratory Rate 16 11/28/2014 10:04 AM EDT Oxygen Saturation 99% 11/28/2014 10:04 AM EDT Inhaled Oxygen Concentration - - Weight 83.1 kg (183 lb 3.2 oz) 11/28/2014 10:04 AM EDT Height 182.9 cm (6') 11/28/2014 10:04 AM EDT Body Mass Index 24.85 11/28/2014 10:04 AM EDT documented in this encounter Progress Notes * Anup Hawkins MD - 11/28/2014 10:18 AM EDT [facility] Transplant Nephrology Follow Up Date: 11/28/2014 Patient: Adama Ram Transplant Date: 11/26/02 Organ(s) Kidney [place] organ diagnosis: IgA Nephropathy Days from Transplant: 12 years Transplant ID: Mr. Adama Ram is a 54 y.o. male who is Status Post Kidney transplantation on 11/26/02. Post-op course was eventful delayed graft function, recurrent IgA nephropathy and Prograf toxicity, and adjustments in his anticonvulsants. Patient referred by Dr. Fuentes. Mr. Adama Ram presents to clinic for routine follow-up of care, patient is out (12 years) from Kidney transplantation. History of Present Illness: With Diet and exercise; he lost wt to 60 pounds since Mar 2014, started gaining again and is up to 180 pounds No illnesses or new meds in the interim; developed diarrhea approx. A month ago and better w immodium and resolved Up to date on the exam; has not had prostate exam. Adult acne and is using metronidazole gel; has seen derm. Routine Health Maintenance: ??? Tetanus andTetanus booster UTD Vaccine (every 10 Years). Not sure when. ??? Colonoscopy Every 5 Years. Up to date. ??? Influenza (Flu) Vaccine Yearly ( virus only), Up to date. ??? Hepatitis C Screening (B. [id number]) ??? Pneumovax Q5 years. Up to date. 05/24 ??? Yearly ophthalmology exam. Up to date (11/2013) ??? Biannual dental exam (with antibiotic prophylaxis).Up to date (1 month ago), did take ABX priorto going to dentist. ??? Dermatology evaluation yearly. Last time he saw derm was this summer 2013. No new cancers noted. ??? Dexascan on periodic basis every 9-12 years (along with yearly 24 hour urine testing) Additionally: Gender appropriate yearly physicals, and regular check-ups with PCP SADAF/PSA pending. Patient Active Problem List Diagnosis Code ??? [...] UPPER EXTREMITY performed by SABRINA SANCHEZ at [facility] MAIN OR ? ? Exc skin malig >4cm trunk, arm, leg 04/19/2012 EXC MALIGNANT LESION, MICHAEL > 4.0CM, TRUNK performed by SABRINA SANCHEZ at [facility] MA[facility] OR No family history on file. SOCIAL HISTORY: History Substance Use Topics ??? Smoking status: Former Smoker Types: Cigarettes Quit date: 12/03/2000 ??? Smokeless tobacco: Former User Quit date: 04/14/2001 ??? Alcohol Use: No Visit Vitals: BP 121/85 Pulse 52 Resp 16 Ht 182.9 cm (6') Wt 83.099 kg (183 lb 3.2 oz) BMI 24.84 kg/m2 SpO2 99% Estimated body mass index is 24.84 kg/(m^2) as calculated from the following: Height as of this encounter: 182.9 cm (6'). Weight as of this encounter: 83.099 kg (183 lb 3.2 oz). Allergies: Benazepril hcl; Hydrochlorothiazide; and Pollen extracts Immunizations: Most Recent Immunizations Administered Date(s) Administered ??? Hepatitis B Vaccine, unspecified formulation 10/31/2001 ??? Influenza Vaccine w/Preservative, Split 04/20/2013 ??? Influenza Vaccine, Whole 04/09/2009 ??? Pneumococcal Polyvalent 23 05/23/2013 Current Meds: Current Outpatient Prescriptions Medication Sig Dispense Refill ??? DILTiazem (DILACOR XR) 120 mg Capsule, Sust. Release 24 hr take 1 capsule by mouth once daily 90 capsule 3 ??? hydrALAZINE (APRESOLINE) 50 mg Tablet take 1 tablet by mouth twice a day 180 tablet 2 ??? mycophenolate (CELLCEPT) 250 mg Capsule Take 3 capsules by mouth 2 times daily. Kidney Transplant V42.0. Transplant Date; 11-26-02 180 capsule 4 ??? PROGRAF 1 mg Capsule Take 1 capsule by mouth 2 times daily. 120 capsule 5 ??? allopurinol (ZYLOPRIM) 100 mg Tablet Take 1.5 tablets by mouth daily. Indications: Gout 45 tablet 11 ??? levETIRAcetam (KEPPRA) 500 mg Tablet Take 1 pill in AM and 2 pills in PM 90 tablet 5 ??? warfarin (COUMADIN) 5 mg tablet Take [...] mg by mouth 3 times daily. ??? sodium bicarbonate 650 mg Tablet Take 1 tablet by mouth 4 times daily for 30 days. 120 tablet 3 ??? calcium acetate (PHOSLO) 667 mg Capsule Take 1 capsule by mouth 3 times daily (with meals). 90 capsule 11 ??? calciTRIol (ROCALTROL) 0.25 mcg Capsule Take 2 capsules by mouth daily. 60 tablet 3 No current facility-administered medications for this visit. Labs: Lab Results Component Value Date WBC 3.9* 11/28/2014 HCT 32.9* 11/28/2014 HGB 11.0* 11/28/2014 PLATELET 173 11/28/2014 K 4.6 11/28/2014 CREATININE 2.21* 11/28/2014 BUN 42* 11/28/2014 GLUCOSE 99 05/23/2013 PHOS 3.7 11/28/2014 MAGNESIUM 0.78 11/28/2014 HA1C 5.7* 11/28/2014 Urinalysis: Component Value Date/Time SPGRAVITYUA 1.015 11/28/2014 0951 PHUADIP 5.0 11/28/2014 0951 PROTEINUADIP 30* 11/28/2014 0951 GLUCOSEU Negative 11/28/2014 0951 KETONESUA Negative 11/28/2014 0951 UROBILIUADIP Normal 11/28/2014 0951 BLOODUADIP Negative 11/28/2014 0951 NITRATEUA Negative 11/28/2014 0951 LEUKOESTERUA Negative 11/28/2014 0951 WBCUA <1 11/28/2014 0951 RBCU 1 11/28/2014 0951 BILIRUBINUA Negative 11/28/2014 0951 SEROLOGIES: Component Value Date/Time CMVIGG Neg 05/23/2013 0745 CMVIGM Neg 05/23/2013 0745 Review of Systems: [...] when available, and adjust as needed. Cellcept 750 mg PO BID empirically due to diarrheal problems. I asked that he avoid lactose containing foods until his BMs normalize. Allograft function has worsened and he has developed metabolic acidosis and likely vit D3 (active form) deficiency. Today we started NaHCO3 650 mg qid with meals and snacks; calcitriol 0.5 mcg daily and calcium acetate (Phos lo) 667 mg at end of meals tid Anemia. - improved up to 11 Hypothyroidism - on levothyroxine to 1.5 tabs (88 mcg/tab)/day Hypertension Management: good Hyperlipidemia Management: good Calcium and phosphorous Management: Start calcitriol 0.5 mcg and phoslo 667 mg tid at the end of meals Metabolic acidosis Sod bicarb 650 mg 4 times a day with food Magnesium Management: good Patient's Functional Status is: 80% Normal activity with effort: some symptoms of disease All age appropriate and post-transplant, routine health maintenance tests and screenings are strongly recommended. These include the above (noting that the time intervals are different than that of the non-transplant community,) but are not limited to, the for mentioned. RTC: 6 months; labs monthly. New info sheets and standing orders provided. Pharmacy needs addressed. no concerns today. Seen and d/w w Dr nicole Rodríguez Nephrology Fellow Pager #[phone] I examined the patient, reviewed all of the above findings and assessment of Dr. Rodríguez and formulated the recommendations which accurately reflect mine. documented in this encounter Plan of Treatment Not on file documented as of this encounter Procedures Procedure Name Priority Date/Time Associated Diagnosis Comments PTH STAT 11/28/2014 9:52 AM EDT Kidney replaced by transplant Need for prophylactic immunotherapy CMP W/FASTING GLUCOSE STAT 11/28/2014 9:52 AM EDT Kidney replaced by transplant Need for prophylactic immunotherapy HEMOGRAM STAT 11/28/2014 9:52 AM EDT Kidney replaced by transplant Need for prophylactic immunotherapy DIFFERENTIAL, AUTOMATED STAT 11/28/2014 9:52 AM EDT Kidney replaced by transplant Need for prophylactic immunotherapy GOLD TUBE HOLD Routine 11/28/2014 9:52 AM EDT Kidney replaced by transplant Need for prophylactic immunotherapy LAVENDER TUBE HOLD Routine 11/28/2014 9: 52 AM EDT Kidney replaced by transplant Need for prophylactic immunotherapy TACROLIMUS LEVEL STAT 11/28/2014 9:52 AM EDT Kidney replaced by transplant Need for prophylactic immunotherapy 1,25-DIHYDROXYCHOLEC ALCIFEROL STAT 11/28/2014 9:52 AM EDT Kidney replaced by transplant Need for prophylactic immunotherapy VITAMIN D, 25-HYDROXY STAT 11/28/2014 9:52 AM EDT Kidney replaced by transplant Need for prophylactic immunotherapy RETICULOCYTE COUNT STAT 11/28/2014 9: 52 AM EDT Kidney replaced by transplant Need for prophylactic immunotherapy CBC (WITH DIFF) STAT 11/28/2014 9:52 AM EDT Kidney replaced by transplant Need for prophylactic immunotherapy URIC ACID STAT 11/28/2014 9:52 AM EDT Kidney replaced by transplant Need for prophylactic immunotherapy PHOSPHORUS STAT 11/28/2014 9:52 AM EDT Kidney replaced by transplant Need for prophylactic immunotherapy MAGNESIUM STAT 11/28/2014 9:52 AM EDT Kidney replaced by transplant Need for prophylactic immunotherapy HEMOGLOBIN A1C STAT 11/28/2014 9:52 AM EDT Kidney replaced by transplant Need for prophylactic immunotherapy LIPID PANEL (REFLEX DIRECT LDL) STAT 11/28/2014 9:52 AM EDT Kidney replaced by transplant Need for prophylactic immunotherapy CALCIUM CREATININE RATIO, RANDOM URINE STAT 11/28/2014 9:51 AM EDT Kidney replaced by transplant Need for prophylactic immunotherapy PROTEIN/CREATININE RATIO, URINE STAT 11/28/2014 9:51 AM EDT Kidney replaced by transplant Need for prophylactic immunotherapy PHOSPHORUS, URINE, RANDOM STAT 11/28/2014 9:51 AM EDT Kidney replaced by transplant Need for prophylactic immunotherapy URINALYSIS WITH REFLEX CULTURE STAT 11/28/2014 9:51 AM EDT Kidney replaced by transplant Need for prophylactic immunotherapy U24 HRS AND VOLUME Routine 11/28/2014 7: 00 AM EDT URIC ACID, URINE, 24 HOUR Routine 11/28/2014 7:00 AM EDT Kidney replaced by transplant Need for prophylactic immunotherapy CALCIUM, URINE, 24 HOUR Routine 11/28/2014 7:00 AM EDT Kidney replaced by transplant Need for prophylactic immunotherapy CREATININE, URINE, 24 HOUR Routine 11/28/2014 7:00 AM EDT Kidney replaced by transplant Need for prophylactic immunotherapy PROTEIN, URINE, 24 HOUR Routine 11/28/2014 7:00 AM EDT Kidney replaced by transplant Need for prophylactic immunotherapy PHOSPHORUS, URINE, 24 HOUR Routine 11/28/2014 7:00 AM EDT Kidney replaced by transplant Need for prophylactic immunotherapy CREATININE CLEARANCE, URINE, 24 HOUR Routine 11/28/2014 7:00 AM EDT Kidney replaced by transplant Need for prophylactic immunotherapy documented in this encounter Results * (ABNORMAL) Differential, Automated (11/28/2014 9:52 AM EDT) Pathologist [facility] Neutrophil % 68.8 % [facility] Neutrophil Absolute 2.69 1.50 - 6.30 x10(3)/mc L CERNER MILLENNIUM Lymph % 17.4 % CERNER MILLENNIUM Lymphocytes Abs 0.7(L) 1.0 - 3.6 x10(3)/mc L CERNER MILLENNIUM Monocyte % 10.2 % CERNER MILLENNIUM Monocyte Abs 0.4 0.2 - 1.0 x10(3)/mc L CERNER MILLENNIUM Eos % 3.1 % CERNER MILLENNIUM Eosinophils Abs 0.1 0.0 - 0.5 x10(3)/mc L CERNER MILLENNIUM Basophil % 0.5 % CERNER MILLENNIUM Baso Absolute 0.0 0.0 - 0.2 x10(3)/mc L CERNER MILLENNIUM Immature Gran % 0.00 % CERN ER MILLENNIUM Comment: Immature granulocytes(IG's)percentage and absolute count will include metamyelocytes, myelocytes, and promyelocytes. Blood smears from CBCs yielding IG's will be scanned manually for concordance. If this scan disagrees with the automated IG or if promyelocytes are noted, a manual differential will be performed. Immature Gran Absolute 0.00 0.00 - 0.05 x10(3)/mc L CERNER MILLENNIUM Blood specimen (specimen) 11/28/2014 9:52 AM EDT 11/28/2014 10:02 AM EDT Narrative Resulting Agency Comment Spec In Lab Anup Hawkins MD HEMATOLOGY ORDERA BLES CERSHANNAN SIMONIUM * (ABNORMAL) Hemogram (11/28/2014 9:52 AM EDT) White Blood Cell 3.9(L) 4.0 - 10.0 x10(3)/mc L CERNER MILLENNIUM Red Blood Cell 3.72(L) 4.63 - 6.08 x10(6)/mc L CERNER MILLENNIUM Hemoglobin 11.0(L) 13.7 - 17.5 gm/dL CERNER MILLENNIUM Hematocrit 32.9(L) 40.0 - 51.0 % CERNER MILLENNIUM Mean Cell Volume 88.4 79.0 - 92.0 fL CERNER MILLENNIUM Mean Cell Hemoglobin 29.6 25.6 - 32.2 pg [facility] Mean Cell Hemoglobin Concentration 33.4 32.0 - 36.5 gm/dL [facility] Platelet 173 145 - 370 x10(3)/mc L CERSHANNAN HUERTAENNIUM RDW Standard Deviation 44.7 35.0 - 46.0 fL [facility] RDW coefficient of variation 13.7 10.9 - 14.4 % [facility] Mean Platelet Volume 9.5 9.0 - 12.0 fL [facility] Blood specimen (specimen) 11/28/2014 9:52 AM EDT 11/28/2014 10:02 AM EDT Narrative Resulting Agency Comment Spec In Lab Anup Hawkins MD HEMATOLOGY KRISHNAA MARISOL [facility] * (ABNORMAL) Hemoglobin A1c (11/28/2014 9:52 AM EDT) Hemoglobin A1c 5.7(H) 4.3 - 5.6 % [facility] Comment: Reference Range: 4.3 - 5.6% 5.7 [...] Mellitus, Diabetes Care 2013; 36: Suppl. 1, R47-67 Estimated Average Glucose 117 mg/dL [facility] Comment: eAG equivalents for HbA1c percentages: HbA1c(%) ?eAG(mg/dL) 6.0 ?126 6.5 ?140 7.0 ?154 7.5 ?169 8.0 ?183 8.5 ?197 9.0 ?212 9.5 ?226 10.0 ? 240 Limitations: The eAG calculation has not been validated on women, individuals below 18 years old and above 70 years old, and individuals with hemoglobinopathies. Additional resources are available on the ADA website: http://[employer].Innovand/DHMCadacalc Rakesh GREWAL, Ashish J, Lizzette R, et al. ??Translating the A1C assay into estimated average glucose values. ??Diabetes Care 2008:31(8):8727-1442. Blood specimen (specimen) 11/28/2014 9:52 AM EDT 11/28/2014 10:02 AM EDT Narrative Resulting Agency Comment Spec In Lab Anup Hawkins MD CHEMISTRY ORDERAB LES Performing Organization Address [facility] de Phone Number [facility]USHRA [facility]ERTAC[facility] * Lavender Tube HOLD (11/28/2014 9:52 AM EDT) Lavender Hold Sample in lab. BUSHRA DOYLE Blood specimen (specimen) 11/28/2014 9:52 AM EDT 11/28/2014 10:02 AM EDT Anup Hawkins MD HEMATOLOGY ORDERA BLES Performing Organization Address [facility] de Phone Number [facility]USH[facility] [employer] * Gold Tube HOLD (11/28/2014 9:52 AM EDT) Gold Hold Sample in lab. [facility] [employer] Blood specimen (specimen) 11/28/2014 9:52 AM EDT 11/28/2014 10:02 AM EDT Anup Hawkins MD CHEMISTRY ORDERAB LES Performing Organization Address [facility] de Phone Number [facility]USHRA [facility] [employer] * VIT D Total Evaluation (11/28/2014 9:52 AM EDT) Vitamin D Total 25 OH 35 30 - 100 ng/mL [facility] Comment: Deficient <10 ng/mL Insufficient 10 to 29 ng/mL Sufficient 30 to 100 ng/mL Potential Intoxication >100 ng/mL According to the [place] National Osteoporosis Foundation, Vitamin D concentrations >30 ng/mL are sufficient to protect bone health. ??The National Kidney Foundation has similarly stated that patients with Vitamin D concentrations <30ng/mL should be considered to be insufficient or deficient. http://[employer]/[facility] EL[facility] CITYnatlkidneyfoundation http://[employer]/[facility] – ELK CITYVitD The [employer] i[employer] Vitamin D Immunoassay detects both 25-OH Vitamin D2 and 25-OH Vitamin D3, but only a total Vitamin D concentration is reported. Blood specimen (specimen) 11/28/2014 9:52 AM EDT 11/28/2014 10:02 AM EDT Narrative Resulting Agency Comment Spec In Lab Anup Hawkins MD CHEMISTRY ORDERAB LES Performing Organization Address [facility]/ZIP Co de Phone Number [facility] * 1,25-dihydroxycholecalciferol (11/28/2014 9:52 AM EDT) Pathologist [facility] Vit D 1,25 Dihydroxy (NOVEMBER) 42 18 - 64 pg/mL [facility] Comment: Test Performed by: [place] [address] Chemical Economist: Swapnil Torres II, M.D., Ph.D. Blood specimen (specimen) 11/28/2014 9:52 AM EDT 11/28/2014 11:04 AM EDT Narrative Resulting Agency Comment Spec In Lab Anup Hawkins MD LAB SEND OUT RYAN CALERO Performing Organization Address [facility]/ZIP Co de Phone Number [facility] * PTH (11/28/2014 9:52 AM EDT) Pathologist [facility] Parathyroid Hormone 64 15 - 65 pg/mL [facility] Blood specimen (specimen) 11/28/2014 9:52 AM EDT 11/28/2014 10:02 AM EDT Narrative Resulting Agency Comment Spec In Lab Anup Hawkins MD CHEMISTRY ORDERAB LES [facility] * Tacrolimus level (11/28/2014 9:52 AM EDT) Tacrolimus 4.3 ng/mL [facility] Comment:Trough therapeutic: 5-15 ng/mL Blood specimen (specimen) 11/28/2014 9:52 AM EDT 11/28/2014 12:02 PM EDT Narrative Resulting Agency Comment Spec In Lab Anup Hawkins MD CHEMISTRY ORDERAB LES Performing Organization Address [facility] Co de Phone Number [facility] * Uric acid (11/28/2014 9:52 AM EDT) Uric Acid 4.9 3.5 - 8.5 mg/dL [facility] Blood specimen (specimen) 11/28/2014 9:52 AM EDT 11/28/2014 10:02 AM EDT Narrative Resulting Agency Comment Spec In Lab Anup Hawkins MD CHEMISTRY ORDERAB LES Performing Organization Address [facility] Co de Phone Number [facility] * Phosphorus (11/28/2014 9:52 AM EDT) Phosphorus 3.7 2.5 - 4.5 mg/dL [facility] Blood specimen (specimen) 11/28/2014 9:52 AM EDT 11/28/2014 10:02 AM EDT Narrative Resulting Agency Comment Spec In Lab Anup Hawkins MD CHEMISTRY ORDERAB LES Performing Organization Address [facility] Co de Phone Number [facility] * Magnesium (11/28/2014 9:52 AM EDT) Magnesium 0.78 0.69 - 1.07 mmol/L [facility] Blood specimen (specimen) 11/28/2014 9:52 AM EDT 11/28/2014 10:02 AM EDT Narrative Resulting Agency Comment Spec In Lab Anup Hawkisn MD CHEMISTRY ORDERAB LES [facility] * (ABNORMAL) Lipid panel (fasting) (11/28/2014 9:52 AM EDT) Cholesterol, Total 90 <=199 mg/dL [facility] Comment: Recommendations of the NCEP Adult Treatment Panel for the following risk cutoff thresholds for the [place] Citizen [place] population: Desirable: <200 mg/dL Borderline High: 200-239 mg/dL High: > or = 240 mg/dL Triglyceride 117 <=149 mg/dL [facility] Comment: Reference Range: Normal triglycerides: ??<150 mg/dL Borderline high: ??150-199 mg/dL High: ??200-499 mg/dL Very high: ??>vg=380 mg/dL RAYMOND 2001; 285(19):0425-6350 HDL Cholesterol 21(L) >=40 mg/dL [facility] Comment: Reference range: ??Low HDL: ?? < 40 mg/dL ??Normal: ?40-60 mg/dL ??Desirable: > 60 mg/dL RAYMOND 2001; 285(19):6850-8512 LDL Cholesterol 46 <=99 mg/dL [facility] Comment: Reference range: ?? Optimal: ?<100 mg/dL ?? Near Optimal/Above Optimal: ?? 100-129 mg/dL ?? Borderline high: ?130-159 mg/dL ?? High: ? 160-189 mg/dL ?? Very high: ?>rt=895 mg/dL RAYMOND 2001: 285(19):3736-2572 Cholesterol/HDL Ratio 4.3 ratio CERNER MILLENNIUM Comment: A Cholesterol to HDL ratio below 4:1 is desirable. ??Studies suggest that increased CAD risk occurs at ratios above 5 for females and above 6 for men. ? [place] Heart Association ??(http://www.americanheart.org) ? Marizol Int Med, 1994; 121:641 ? AM J Med, 1998; 105(1A):48S Blood specimen (specimen) 11/28/2014 9:52 AM EDT 11/28/2014 10:02 AM EDT Narrative Resulting Agency Comment Spec In Lab Anup Hawkins MD CHEMISTRY ORDERAB LES Performing Organization Address [facility] Co de Phone Number CERNER [facility]LEY[facility]UM * (ABNORMAL) Reticulocyte Count (11/28/2014 9:52 AM EDT) Reticulocyte % 0.5 0.5 - 2.4 % CERNER MILLENNIUM Retic Abs # 0.020(L) 0.027 - 0.095 x10(6)/mc L CERNER MILLENNIUM Immature Retic% 1.8(L) 2.3 - 15.9 % CERNER MILLENNIUM Reticulated Hgb 30.1 28.5 - 38.9 pg CERNER MILLENNIUM Immature Plt % 2.7 0.0 - 7.4 % CERNER MILLENNIUM Blood specimen (specimen) 11/28/2014 9:52 AM EDT 11/28/2014 10:02 AM EDT Narrative Resulting Agency Comment Spec In Lab Anup Hawkins MD HEMATOLOGY ORDERA BLES Performing Organization Address [facility]/ZIP Co de Phone Number CERNER MILLENNIUM * (ABNORMAL) CMP w/fasting Glucose (11/28/2014 9:52 AM EDT) Glucose Fasting 95 65 [...] Mellitus, Position Statement from the [place] Diabetes Association. ??Diabetes Care, Volume 33, Supplement 1, Jul 2009 Blood Urea Nitrogen 42(H) 10 - 20 mg/dL CERNER MILLENNIUM Creatinine 2.21(H) 0.80 - 1.50 mg/dL CERNER MILLENNIUM Comment: Please note that the pediatric reference intervals supplied above were not validated at [facility]. Results from pediatric patients should be interpreted in conjunction to the patient's age, height and muscle mass. Sodium 140 135 - 145 mmol/L CERNER MILLENNIUM Potassium 4.6 3.5 - 5.0 mmol/L CERNER MILLENNIUM Comment: Please note: ??Patients with WBC >100,000 may have falsely elevated Potassium levels. ??For accurate Potassium quantification in these patients send serum separator tube (gold top) for subsequent determinations. ??Contact the Clinical Chemistry Laboratory if there are any questions. Chloride 110(H) 98 - 107 mmol/L CERNER MILLENNIUM Carbon Dioxide 15(L) 22 - 31 mmol/L CERNER MILLENNIUM Anion Gap 15 5 - 15 mmol/L CERNER MILLENNIUM Calcium 8.1(L) 8.5 - 10.5 mg/dL CERNER MILLENNIUM Protein, Total 6.4 6.1 - 8.0 gm/dL CERNER MILLENNIUM Albumin 4.0 3.2 - 5.2 gm/dL CERNER MILLENNIUM Aspartate Aminotransferase 31 0 - 39 unit/L CERNER MILLENNIUM Alanine Aminotransferase 18 0 - 55 unit/L CERNER MILLENNIUM Alkaline Phosphatase 97 40 - 120 unit/L CERNER MILLENNIUM Bilirubin, Total 0.3 0.2 - 1.3 mg/dL CERNER MILLENNIUM Bilirubin, Direct 0.1 0.0 - 0.3 mg/dL CERNER MILLENNIUM Est Glomerular Filtration Rate 31(L) >=60 CERNER MILLENNIUM Comment: This estimated GFR [...] the following links into your internet browser. [email or web address] [email or web address] Blood specimen (specimen) 11/28/2014 9:52 AM EDT 11/28/2014 10:02 AM EDT Narrative Resulting Agency Comment Spec In Lab Anup Hawkins MD CHEMISTRY ORDERAB LES Performing Organization Address [facility] de Phone Number CERSHANNAN BeOnDeskENNIUM * (ABNORMAL) Protein/Creatinine Ratio, urine (11/28/2014 9:51 AM EDT) Creatinine, Urine 97 mg/dL CERNER MILLENNIUM Protein, Urine 53(H) 0 - 12 mg/dL CERNER MILLENNIUM Protein / Creatinine Ratio, Urine 0.5 ratio CERNER MILLENNIUM Urine specimen (specimen) 11/28/2014 9:51 AM EDT 11/28/2014 10:10 AM EDT Narrative Resulting Agency Comment Spec In Lab Anup Hawkins MD URINE ORDERABLES Performing Organization Address [facility] de Phone Number CERSHANNAN MILLENNIUM * Phosphorus, urine, random (11/28/2014 9:51 AM EDT) Phosphorus, Urine 46.7 mg/dL CERNER MILLENNIUM Urine specimen (specimen) 11/28/2014 9:51 AM EDT 11/28/2014 10:10 AM EDT Narrative Resulting Agency Comment Spec In Lab Anup Hawkins MD URINE ORDERABLES Performing Organization Address [facility] Phone Number CERSHANANN MILLENNIUM * Calcium Creatinine Ratio, random urine (11/28/2014 9:51 AM EDT) Calcium, Urine <0.8 mg/dL CERNE R MILLENNIUM Creatinine, Urine 97 mg/dL CERNER MILLENNIUM Calcium / Creatinine Ratio, Urine <0.01 ratio CERNER MILLENNIUM Urine specimen (specimen) 11/28/2014 9:51 AM EDT 11/28/2014 10:10 AM EDT Narrative Resulting Agency Comment Spec In Lab Anup Hawkins MD URINE ORDERABLES CERNER MILLENNIUM * (ABNORMAL) Urinalysis with microscopic (11/28/2014 9:51 AM EDT) Glucose, Urine Dipstick Negative Negative mg/dL CERNER MILLENNIUM Protein, Urine Dipstick 30(A) Negative mg/dL CERNER MILLENNIUM Bilirubin, Urine Dipstick [...] Urine Dipstick Clear Clear CERNER MILLENNIUM Specific [place] Urine Automated 1.015 1.002 - 1.030 CERNER MILLENNIUM Color, Urine Dipstick Yellow Yellow CERNER MILLENNIUM RBC, Urine 1 0 - 3 /HPF CERNER MILLENNIUM WBC, Urine <1 0 - 3 /HPF CERNER MILLENNIUM Urine specimen (specimen) 11/28/2014 9:51 AM EDT 11/28/2014 10:10 AM EDT Narrative Resulting Agency Comment Spec In Lab Anup Hawkins MD URINE ORDERABLES Performing Organization Address [facility] Co de Phone Number CERSHANNAN SIMONIUM * U24 Hrs and Volume (11/28/2014 7:00 AM EDT) Hours Collected 24 hour(s) CERSHANNAN HUERTAENNIUM Total Volume 1,650 mL CERNER BRADLEYENNIUM Urine specimen (specimen) 11/28/2014 7:00 AM EDT 11/28/2014 11:50 AM EDT Narrative Resulting Agency Comment Spec In Lab Anup Hawkins MD CHEMISTRY ORDERAB LES Performing Organization Address [facility] de Phone Number BUSHRA SIMONIUM * (ABNORMAL) Uric acid, urine, 24 hour (11/28/2014 7:00 AM EDT) U24 Uric Conc 12.5 mg/dL CERNER MILLENNIUM Uric Acid, 24 Hour Urine 0.21(L) 0.25 - 0.80 gm/24hr CERNER MILLENNIUM Urine specimen (specimen) 11/28/2014 7:00 AM EDT 11/28/2014 11:50 AM EDT Narrative Resulting Agency Comment Spec In Lab Anup Hawkins MD URINE ORDERABLES Performing Organization Address [facility] de Phone Number BUSHRA SIMONIUM * Phosphorus, urine, 24 hour (11/28/2014 7:00 AM EDT) Phosphorus Concentration, U24 47.3 mg/dL CERNER MILLENNIUM Phosphorus, 24 Hour Urine 0.8 0.4 - 1.3 gm/24hr CERNER MILLENNIUM Urine specimen (specimen) 11/28/2014 7:00 AM EDT 11/28/2014 11:50 AM EDT Narrative Resulting Agency Comment Spec In Lab Anup Hawkins MD URINE ORDERABLES Performing Organization Address [facility]/ZIP Co de Phone Number BUSHRA SIMONIUM * Calcium, urine, 24 hour (11/28/2014 7:00 AM EDT) Ca Concentration, U24 <0.8 mg/dL CERNER MILLENNIUM Calcium, 24 Hour Urine <13.2 50.0 - 300.0 mg/24hr CERNER MILLENNIUM Comment:Reference Range: 50. 0-300.0 mg/24 hour based on diet. Urine specimen (specimen) 11/28/2014 7:00 AM EDT 11/28/2014 11:50 AM EDT Narrative Resulting Agency Comment Spec In Lab Anup Hawkins MD URINE ORDERABLES CERNER MILLENNIUM * Creatinine, urine, 24 hour (11/28/2014 7:00 AM EDT) Cre Concentration, U24 99 mg/dL CERNER MILLENNIUM Creatinine, 24 Hour Urine 1.63 0.80 - 1.90 gm/24hr CERNER MILLENNIUM Urine specimen (specimen) 11/28/2014 7:00 AM EDT 11/28/2014 11:50 AM EDT Narrative Resulting Agency Comment Spec In Lab Anup Hawkins MD URINE ORDERABLES Performing Organization Address City/[facility] Co de Phone Number CERSHANNAN MILLENNIUM * (ABNORMAL) Creatinine Clearance, urine, 24 hour (11/28/2014 7:00 AM EDT) Creatinine Clearance, 24 Hour Urine 51(L) 90 - 139 mL/min CERNER MILLENNIUM Cre Concentration, U24 99 mg/dL CERNER MILLENNIUM Creatinine, 24 Hour Urine 1.63 0.80 - 1.90 gm/24hr CERNER MILLENNIUM Urine specimen (specimen) 11/28/2014 7:00 AM EDT 11/28/2014 11:50 AM EDT Narrative Resulting Agency Comment Spec In Lab Anup Hawkins MD URINE ORDERABLES CERSHANNAN MILLENNIUM * (ABNORMAL) Protein, urine, 24 hour (11/28/2014 7:00 AM EDT) Protein Concentration, U24 36 <=80 mg/dL BUSHRA MILLENNIUM Protein, 24 Hour Urine 0.59(H) <=0.15 gm/24hr BUSHRA MILLRUDYIUM Urine specimen (specimen) 11/28/2014 7:00 AM EDT 11/28/2014 11:50 AM EDT Narrative Resulting Agency Comment Spec In Lab Anup Hawkins MD URINE ORDERABLES CODISHANNAN DOYLE documented in this encounter Visit Diagnoses Diagnosis Kidney replaced by transplant Need for prophylactic immunotherapy CKD (chronic kidney disease), stage IV Chronic kidney disease, Stage IV (severe) documented in this encounter Care Teams Mold Car Pusher Relationship Specialty Start Date End Date Carroll Fuentes DO [address] [place] [address] PCP - General 09/23/11 10/20/22 documented as of this encounter
--- OUTSIDE RECORDS SUMMARY | 2024-04-22 11:14 | XMS_ITS | Encounter Summary ---
[place] [address] Care Team Providers Care Pilot Instructor Name Role Phone Carroll Fuentes DO Primary Care Provider Reason for Visit * Reason Onset Date Comments Medication Refill 10/22/2014 Encounter Details Date Type Department Care Team (Late st Contact Info) Description 10/22/2014 Refill Solid [place] [address] Autumn Burgos, RN S/P kidney transplant Social [...] transplant documented in this encounter Care Teams Pilot Instructor Relationship Specialty Start Date End Date Carroll Fuentes DO [address] [place] [address] PCP - General 09/23/11 10/20/22 documented as of this encounter
--- OUTSIDE RECORDS SUMMARY | 2024-04-22 11:14 | XMS_ITS | Encounter Summary ---
Author Organization [facility] Address [facility] [place] [address] Care Team Providers Care System Manager Name Role Phone AlfredoCarroll allison Primary Care Provider Encounter Details Date Type Department Care Team (Latest Contact Info) Description 09/19/2013 9:14 PM EDT - 09/19/2013 11:59 PM EDT Hospital [place] [address] Anup Hawkins MD [facility] [place] [address] Discharge Disposition: Home Social History Tobacco Use [...] Date/Time Associated Diagnosis Comments TACROLIMUS LEVEL Routine 09/19/2013 12:3 0 PM EDT documented in this encounter Results * Tacrolimus level (09/19/2013 12:30 PM EDT) Tacrolimus <3.0 ng/mL CERNER MILLENNIUM Comment:Trough therapeutic: 5-15 ng/mL Blood specimen (specimen) 09/19/2013 12:30 PM EDT 09/20/2013 8:06 AM EDT Narrative Resulting Agency Comment Spec In Lab Anup Hawkins MD CHEMISTRY ORDERAB LES [facility] documented in this encounter Visit Diagnoses Not on filedocumented in this encounter Care Teams System Manager Relationship Specialty Start Date End Date Carroll Fuentes DO [address] [place] [address] PCP - General 09/23/11 10/20/22 documented as of this encounter
--- OUTSIDE RECORDS SUMMARY | 2024-04-22 11:14 | XMS_ITS | Encounter Summary ---
Author Organization [facility] Address [facility] [place] [address] Care Team Providers Care Consulting Software Engineer Name Role Phone AlfredoCarroll geiger Primary Care Provider [phone] Encounter Details Date Type Department Care Team (Late st Contact Info) Description 10/24/2013 External Results Solid [place] [address] Anand Winn I, [place] [address] Social History Tobacco Use Types Packs/Day Years [...] Procedure Name Priority Date/Time Associated Diagnosis Comments [facility] TRANSPLANT FOLLOW UP LABS EXTERNAL RESULTS PANEL Routine 10/23/2013 documented in this encounter Results * (ABNORMAL) Transplant: Follow up lab request - External Results (10/23/2013) White Blood Cell 5(External Lab) Hemoglobin 11.8(Exter nal Lab) 13.5 - 17.5 Hematocrit 36.8(Exter nal Lab) 41.0 - 53.0 Amylase (External Lab) 25 - 110 Lipase (External Lab) 0 - 53 Blood Urea Nitrogen 42(Externa l Lab) Creatinine 2.1(Blood Bank Laboratory Technologist al Lab) Tacrolimus (External Lab) ABORH Type Historical Provider CHEMISTRY ORDERAB LES documented in this encounter Visit Diagnoses Not on filedocumented in this encounter Care Teams Consulting Software Engineer Relationship Specialty Start Date End Date Carroll Fuentes DO [address] [place] [address] PCP - General 09/23/11 10/20/22 documented as of this encounter
--- OUTSIDE RECORDS SUMMARY | 2024-04-22 11:14 | XMS_ITS | Encounter Summary ---
Author Organization [facility] Address [facility] [place] [address] Care Team Providers Care Physical Education Aide Name Role Phone AlfredoCarroll allison Primary Care Provider [phone] Encounter Details Date Type Department Care Team (Late st Contact Info) Description 01/11/2014 Telephone Solid [place] [address] Anand Winn I, [place] [address] Social History Tobacco Use Types Packs/Day Years [...] encounter Miscellaneous Notes * Telephone Encounter - Anand Winn I - 01/11/2014 5:35 PM EDT Patient called out of warfarin (COUMADIN) 5 mg tablet Script sent to local Pharmacy documented in this encounter Plan of Treatment Not on file documented as of this encounter Visit Diagnoses Not on filedocumented in this encounter Care Teams Physical Education Aide Relationship Specialty Start Date End Date Carroll Fuentes DO [address] [place] [address] PCP - General 09/23/11 10/20/22 documented as of this encounter
--- OUTSIDE RECORDS SUMMARY | 2024-04-22 11:14 | XMS_ITS | Encounter Summary ---
Author Organization [facility] Address [facility] [place] [address] Care Team Providers Care Auxiliary Engineer Name Role Phone AlfredoCarroll geiger Primary Care Provider [phone] Encounter Details Date Type Department Care Team (Late st Contact Info) Description 09/26/2013 External Results [place] [address] Anand Winn I, [place] [address] Social History Tobacco Use Types Packs/Day Years [...] Procedure Name Priority Date/Time Associated Diagnosis Comments [facility] TRANSPLANT FOLLOW UP LABS EXTERNAL RESULTS PANEL Routine 09/26/2013 documented in this encounter Results * (ABNORMAL) Transplant: Follow up lab request - External Results (09/26/2013) White Blood Cell 4.82(Exter nal Lab) Hemoglobin 12.0(Exter nal Lab) 13.5 - 17.5 Hematocrit 38.2(Exter nal Lab) 41.0 - 53.0 Amylase (External Lab) 25 - 110 Lipase (External Lab) 0 - 53 Blood Urea Nitrogen 42(Externa l Lab) Creatinine 2.2(Supervisor [place] al Lab) Tacrolimus (External Lab) ABORH Type Historical Provider CHEMISTRY ORDERAB LES documented in this encounter Visit Diagnoses Not on filedocumented in this encounter Care Teams Auxiliary Engineer Relationship Specialty Start Date End Date Carroll Fuentes DO [address] [place] [address] PCP - General 09/23/11 10/20/22 documented as of this encounter
--- OUTSIDE RECORDS SUMMARY | 2024-04-22 11:14 | XMS_ITS | Encounter Summary ---
[place] [address] Care Team Providers Care Marine Engine Mechanic Name Role Phone AlfredoCarroll allison Primary Care Provider [phone] Encounter Details Date Type Department Care Team (Late st Contact Info) Description 12/01/2013 Telephone [place] [address] Janeth Nixon, RN Social History Tobacco Use Types Packs/Day [...] encounter Miscellaneous Notes * Telephone Encounter - Janeth Nixon, RN - 12/01/2013 8:36 PM EDT accounts payable payroll coordinator note: Adama called [email or web address] to report s/s mid abdominal pain for the past 2-3 days. States, I feel like someone just hit me in the gut. Afebrile, denies s/s dysuria, urinary frequency & urgency, reports regular bowel movements without any issues. Plan: Advised Adama to visit his local ER for evaluation & possible abdominal ultrasound, labs. I will follow up with Adama later this weekend. documented in this encounter Plan of Treatment Not on file documented as of this encounter Visit Diagnoses Not on filedocumented in this encounter Care Teams Marine Engine Mechanic Relationship Specialty Start Date End Date Carroll Fuenets DO [address] [place] [address] PCP - General 09/23/11 10/20/22 documented as of this encounter
--- OUTSIDE RECORDS SUMMARY | 2024-04-22 11:14 | XMS_ITS | Encounter Summary ---
Author Organization [facility] Address [facility] [place] [address] Care Team Providers Care Quality Improvement Specialist Name Role Phone Carroll Fuentes DO Primary Care Provider [phone] Reason for Visit * Reason Comments Medication Refill Encounter Details Date Type Department Care Team (Late st Contact Info) Description 11/07/2013 [place] [address] Alfonzo Miles MD [facility] [place] [place] [address] Social History Tobacco Use Types Packs/Day Years [...] on filedocumented in this encounter Care Teams Quality Improvement Specialist Relationship Specialty Start Date End Date Carroll Fuentes DO [address] [place] [address] PCP - General 09/23/11 10/20/22 documented as of this encounter
--- OUTSIDE RECORDS SUMMARY | 2024-04-22 11:14 | XMS_ITS | Encounter Summary ---
Author Organization [facility] Address [facility] [place] [address] Care Team Providers Care Car Shagger Name Role Phone Carroll Fuentes DO Primary Care Provider [phone] Reason for Visit * Reason Comments Medication Refill Encounter Details Date Type Department Care Team (Late st Contact Info) Description 02/21/2014 Refill [place] [address] Anup Hawkins MD [facility] [place] [address] Social History Tobacco Use Types Packs/Day Years [...] on filedocumented in this encounter Care Teams Car Shagger Relationship Specialty Start Date End Date Carroll Fuentes DO [address] [place] [address] PCP - General 09/23/11 10/20/22 documented as of this encounter
--- OUTSIDE RECORDS SUMMARY | 2024-04-22 11:15 | XMS_ITS | Encounter Summary ---
Author Organization [facility] [place] [address] Care Team Providers Care Pi/Senior Research Associate Name Role Phone Carroll Fuentes DO Primary Care Provider [phone] Encounter Details Date Type Department Care Team (Late st Contact Info) Description 01/25/2013 Notes Only [place] [address] Isidoro Wild MSW Social History Tobacco Use Types Packs/Day Years [...] as of this encounter Progress Notes * Isidoro Wild MSW - 01/25/2013 12:17 PM EDT JANICE assisted pt with prescription issues. JANICE sent prescription to pt's pharmacy as he no longer qualifies for free assistance through the technical support assistant. documented in this encounter Plan of Treatment Not on file documented as of this encounter Visit Diagnoses Not on filedocumented in this encounter Care Teams Pi/Senior Research Associate Relationship Specialty Start Date End Date Carroll Fuentes DO [address] [place] [address] PCP - General 09/23/11 10/20/22 documented as of this encounter
--- OUTSIDE RECORDS SUMMARY | 2024-04-22 11:15 | XMS_ITS | Encounter Summary ---
Author Organization [facility] Address [facility] [place] [address] Care Team Providers Care Meat Processor Name Role Phone Carroll Fuentes DO Primary Care Provider [phone] Encounter Details Date Type Department Care Team (Latest Contact Info) Description 12/07/2012 8:50 AM EDT - 12/07/2012 11:59 PM EDT Hospital [place] [address] Alfonzo Miles MD [facility] [place] [address] Epilepsy Discharge Disposition: Home Social History Tobacco Use [...] Sig Dispensed Refills Start Date End Date levothyroxine (SYNTHROID) 100 mcg Tablet Take 100 mcg by mouth daily. 2018 losartan (COZAAR) 25 mg tablet Take 1 tablet by mouth daily. 90 tablet 3 12/07/2012 12/07/2013 leveTIRAcetam (KEPPRA) 1,000 mg tablet Take 1 tablet by mouth 2 times daily. 180 tablet 3 11/21/2012 11/07/2013 hydrALAZINE (APRESOLINE) 50 mg tabletIndications:HTN (hypertension) take 1 tablet by mouth twice a day 60 tablet 7 06/29/2012 02/07/2013 allopurinol (ZYLOPRIM) 100 mg tabletIndications:gou t Take 150 mg by mouth daily. Indications: Gout 02/17/2013 warfarin (COUMADIN) 5 mg tablet Take 1 tablet (5 mg) by mouth on , and 1.5 tablets (7.5 mg) on all other days. Weekly dose = 50 mg. Take at the same time each day, preferably between 5:00 and 6:00 PM. 01/11/2014 DILTiazem (CARTIA XT) 120 mg 24 hr capsuleIndications:HT N (hypertension) Take 1 capsule by mouth daily. 90 capsule 3 02/15/2012 01/29/2013 PROGRAF 1 mg capsuleIndications:Tr ansplanted kidney Take 1 capsule by mouth 2 times daily. KIDNEY TRANSPLANT V42.0. TRANSPLANT DATE; 11-26-02 60 capsule 11 01/06/2012 03/22/2013 CELLCEPT 250 mg capsuleIndications:S/ P kidney transplant Take 4 capsules by mouth 2 times daily. Kidney Transplant V42.0. Transplant Date; 11-26-02 240 capsule 11 08/07/2011 01/25/2013 AMOXICILLIN TRIHYDRATE (TRIMOX ORAL) Take 2,000 mg by mouth. 1 hour Prior to dental procedures 05/11/2017 metoprolol tartrate (LOPRESSOR) 50 mg tablet Take 50 mg by mouth 3 times daily. 12/03/2010 10/20/2017 documented as of this encounter Plan of Treatment Not on file documented as of this encounter Visit Diagnoses Diagnosis Epilepsy Unspecified epilepsy without mention of intractable epilepsy documented in this encounter Care Teams Meat Processor Relationship Specialty Start Date End Date Carroll Fuentes DO [address] [place] [address] [address] [place] [address] PCP - General 09/23/11 10/20/22 documented as of this encounter
--- OUTSIDE RECORDS SUMMARY | 2024-04-22 11:15 | XMS_ITS | Encounter Summary ---
Author Organization [facility] Address [facility] [address] Care Team Providers Care Computer Networker Name Role Phone Carroll Fuentes DO Primary Care Provider Encounter Details Date Type Department Care Team (Late st Contact Info) Description 11/21/2012 [place] [address] Alfonzo Miles MD [facility] [place] [place] [address] Social History Tobacco Use Types Packs/Day Years [...] filedocumented in this encounter Care Teams Computer Networker Relationship Specialty Start Date End Date Carroll Fuentes DO [address] [place] [address] PCP - General 09/23/11 10/20/22 documented as of this encounter
--- OUTSIDE RECORDS SUMMARY | 2024-04-22 11:15 | XMS_ITS | Encounter Summary ---
Author Organization [facility] Address [facility] [place] [address] Care Team Providers Care Municipal Engineer Name Role Phone Carroll Fuentes DO Primary Care Provider Encounter Details Date Type Department Care Team (Late st Contact Info) Description 11/22/2012 2:15 PM EDT [place] [address] Alfonzo Miles MD [facility] [place] [address] Epilepsy (Primary Dx); Transplanted kidney; Need for prophylactic immunotherapy Discharge Disposition: Home Social History Tobacco Use [...] Sign Reading Time Taken Comments Blood Pressure 136/93 11/22/2012 2:43 PM EDT Pulse 50 11/22/2012 2:43 PM EDT Temperature - - Respiratory Rate - - Oxygen Saturation - - Inhaled Oxygen Concentration - - Weight 89 kg (196 lb 3.2 oz) 11/22/2012 2:43 PM EDT Height 182.9 cm (6') 11/22/2012 2:43 PM EDT repo rted Body Mass Index 26.61 11/22/2012 2:43 PM EDT documented in this encounter Patient Instructions * Patient Instructions* Alfonzo Miles MD - 11/22/2012 3:11 PM EDT I think you're doing quite well. Seizures appear to be fully controlled. I think you should stay on the same medications. Please get blood tests done today. I would like to see you back in a year or sooner if this problem. Alfonzo Miles MD [place] [address] Pager: [phone], #[phone] Email: [email or web address] documented in this encounter Progress Notes * Alfonzo Miles MD - 11/22/2012 3:15 PM EDT Chief Complaint: Epilepsy. History: The patient is seen in followup today. As noted earlier, he has epilepsy with generalized convulsive seizures. 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 MRI scan showed some generalized atrophy and lesions compatible with a history of trauma. EEG showed mild generalized slowing. Seizures were controlled on Dilantin and phenobarbital. He was converted to Keppra and the context of his need for renal transplantation because of IgA nephropathy. Seizures have remained fully controlled. He is doing quite well neurologically. He remains seizure-free. His last seizure was several years ago. 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 PMH: Patient Active Problem List Diagnoses Code ??? Epilepsy 345.90 ??? End stage renal disease 585.6 ??? Gout 274.9 ??? Hypertension 401.9 ??? Left leg DVT 453.40 ??? Kidney replaced by transplant V42.0 ??? IgA nephropathy 583.9 ??? BCC (basal cell carcinoma of skin) 173.91 Review of systems: He eats and sleeps all right. Bowel and bladder function are normal. Physical Exam: BP 136/93 Pulse 50 Ht 182.9 cm (6') Wt 88.996 kg (196 lb 3.2 oz) BMI 26.61 kg/m2 Head, eyes, ears, nose and throat [...] Outpatient Prescriptions Medication Sig Dispense Refill ??? leveTIRAcetam (KEPPRA) 1,000 mg tablet Take 1 tablet by mouth 2 times daily. 180 tablet 3 ??? hydrALAZINE (APRESOLINE) 50 mg tablet take 1 tablet by mouth twice a day 60 tablet 7 ??? allopurinol (ZYLOPRIM) 100 mg tablet Take 150 mg by mouth daily. Indications: Gout ??? warfarin (COUMADIN) 5 mg tablet Take 2 tablets (10 mg) by mouth on , and 1.5 tablets (7.5 mg) on all other days. Weekly dose = 55 mg. Take at the same time each day, preferably between 5:00 and 6:00 PM. ??? DILTiazem (CARTIA XT) 120 mg 24 hr capsule Take 1 capsule by mouth daily. 90 capsule 3 ??? PROGRAF 1 mg capsule Take 1 capsule by mouth 2 times daily. KIDNEY TRANSPLANT V42.0. TRANSPLANTDATE; 11-26-02 60 capsule 11 ??? CELLCEPT 250 mg capsule Take 4 capsules by mouth 2 times daily. Kidney Transplant V42.0. Transplant Date; 11-26-02 240 capsule 11 ??? AMOXICILLIN TRIHYDRATE (TRIMOX ORAL) Take 2,000 mg by mouth. 1 hour Prior to dental procedures ??? metoprolol tartrate (LOPRESSOR) 50 mg tablet Take 50 mg by mouth 3 times daily. Lab Studies: Orders Placed This Encounter Procedures ??? Hepatic Function Panel ??? Basic Metabolic Panel (non-fasting) ??? CBC (with Diff) ??? Levetiracetam level Impression: The patient is doing quite well neurologically. He has posttraumatic epilepsy. Seizures are fully controlled. I think he should stay on Keppra indefinitely. The leg cramps are better when he drinks tonic water. BP seems stable. He missed an appointment with nephrology clinic. This has been rescheduled. Thank you for this consultation. I will see him back in a year or sooner if necessary. Alfonzo Miles MD [place] [address] Pager: [phone], #[phone] Email: [email or web address] cc: CHASE FUENTES DO documented in this encounter Plan of Treatment Not on file documented as of this encounter Procedures Procedure Name Priority Date/Time Associated Diagnosis Comments PTH STAT 11/22/2012 3:32 PM EDT Transplanted kidney Need for prophylactic immunotherapy CMP W/FASTING GLUCOSE STAT 11/22/2012 3:32 PM EDT Transplanted kidney Need for prophylactic immunotherapy DIFFERENTIAL, AUTOMATED STAT 11/22/2012 3:32 PM EDT TACROLIMUS LEVEL STAT 11/22/2012 3:32 PM EDT Transplanted kidney Need for prophylactic immunotherapy IRON AND TIBC STAT 11/22/2012 3:32 PM EDT Transplanted kidney Need for prophylactic immunotherapy 1,25-DIHYDROXYCHOLEC ALCIFEROL STAT 11/22/2012 3:32 PM EDT Transplanted kidney Need for prophylactic immunotherapy VITAMIN D, 25-HYDROXY STAT 11/22/2012 3:32 PM EDT Transplanted kidney Need for prophylactic immunotherapy PROTHROMBIN TIME STAT 11/22/2012 3:32 PM EDT Transplanted kidney Need for prophylactic immunotherapy RETICULOCYTE COUNT STAT 11/22/2012 3: 32 PM EDT Transplanted kidney Need for prophylactic immunotherapy CBC (WITH DIFF) STAT 11/22/2012 3:32 PM EDT Transplanted kidney Need for prophylactic immunotherapy URIC ACID STAT 11/22/2012 3:32 PM EDT Transplanted kidney Need for prophylactic immunotherapy PHOSPHORUS STAT 11/22/2012 3:32 PM EDT Transplanted kidney Need for prophylactic immunotherapy MAGNESIUM STAT 11/22/2012 3:32 PM EDT Transplanted kidney Need for prophylactic immunotherapy FOLATE, SERUM STAT 11/22/2012 3:32 PM EDT Transplanted kidney Need for prophylactic immunotherapy FERRITIN STAT 11/22/2012 3:32 PM EDT Transplanted kidney Need for prophylactic immunotherapy VITAMIN B12 STAT 11/22/2012 3:32 PM EDT Transplanted kidney Need for prophylactic immunotherapy LIPID PANEL (REFLEX DIRECT LDL) STAT 11/22/2012 3:32 PM EDT Transplanted kidney Need for prophylactic immunotherapy BK QUANT URINE RESULT STAT 11/22/2012 3:29 PM EDT CALCIUM CREATININE RATIO, RANDOM URINE STAT 11/22/2012 3:29 PM EDT Transplanted kidney Need for prophylactic immunotherapy PROTEIN/CREATININE RATIO, URINE STAT 11/22/2012 3:29 PM EDT Transplanted kidney Need for prophylactic immunotherapy PHOSPHORUS, URINE, RANDOM STAT 11/22/2012 3:29 PM EDT Transplanted kidney Need for prophylactic immunotherapy CREATININE, URINE, RANDOM STAT 11/22/2012 3:29 PM EDT Transplanted kidney Need for prophylactic immunotherapy URINALYSIS WITH REFLEX CULTURE STAT 11/22/2012 3:29 PM EDT Transplanted kidney Need for prophylactic immunotherapy documented in this encounter Results * Differential, Automated (11/22/2012 3:32 PM EDT) Neutrophil % 66.0 34.0 - 71.0 % [facility]ERNER BRADLEYENNIUM Neutrophil Absolute 3.88 1.50 - 6.30 x10(3)/mcL CERNER MILLENNIUM Lymph % 24.5 19.0 - 53.0 % CERNER MILLENNIUM Lymphocytes Abs 1.4 1.0 - 3.6 x10(3)/mcL CERN[facility] MILLENNIUM Monocyte % 6.8 4.0 - 13.0 % CERNER MILLENNIUM Monocyte Abs 0.4 0.2 - 1.0 x10(3)/mcL [facility]ERN[facility] MILLENNIUM Eos % 2.0 0.0 - 7.0 % CERNER MILLENNIUM Eosinophils Abs 0.1 0.0 - 0.5 x10(3)/mcL CERNER MILLENNIUM Basophil % 0.5 0.0 - 2.0 % CERNER MILLENNIUM Baso Absolute 0.0 0.0 - 0.2 x10(3)/mcL CERN[facility] MILLENNIUM Immature Gran % 0.20 0.00 - 0.66 % CERNER BRADLEYENNIUM Comment: Immature granulocytes(IG's)percentage and absolute count will include metamyelocytes, myelocytes, and promyelocytes. Blood smears from CBCs yielding IG's will be scanned manually for concordance. If this scan disagrees with the automated IG or if promyelocytes are noted, a manual differential will be performed. Immature Gran Absolute 0.01 0.00 - 0.05 x10(3)/mcL [facility] SIMONIUM Blood specimen (specimen) 11/22/2012 3:32 PM EDT 11/22/2012 3:39 PM EDT Chase Hawkins MD HEMATOLOGY ORDERA BLES [facility]USH[facility] DOYLE * Vitamin B12 (11/22/2012 3:32 PM EDT) Vitamin B12 466 207 - 974 pg/mL [facility] SIMONIUM Blood specimen (specimen) 11/22/2012 3:32 PM EDT 11/22/2012 3:38 PM EDT Narrative Resulting Agency Comment Spec In Lab Chase Hawkins MD CHEMISTRY ORDERAB LES [facility] BRADLEYENNIUM * (ABNORMAL) Iron and TIBC (11/22/2012 3:32 PM EDT) Iron 94 45 - 160 mcg/dL [facility] TIBC 239(L) 250 - 450 mcg/dL [facility] Iron Saturation 39 20 - 50 % [facility] MILLENNIUM Blood specimen (specimen) 11/22/2012 3:32 PM EDT 11/22/2012 3:38 PM EDT Narrative Resulting Agency Comment Spec In Lab Chase Hawkins MD CHEMISTRY ORDERAB LES Performing Organization Address [facility] Co de Phone Number [facility] * Folate, serum (11/22/2012 3:32 PM EDT) Pathologist [facility] Folate >20.0 4.6 - 34.8 ng/mL [facility] Blood specimen (specimen) 11/22/2012 3:32 PM EDT 11/22/2012 3:38 PM EDT Narrative Resulting Agency Comment Spec In Lab Chase Hawkins MD CHEMISTRY ORDERAB LES Performing Organization Address [facility] Co de Phone Number [facility] * Ferritin (11/22/2012 3:32 PM EDT) Ferritin 125 30 - 400 ng/mL [facility] MILLENNIUM Comment: Pediatric reference ranges not verified at [facility], interpret with caution. Reference ranges for females greater than 50 years of age approach values for men, i.e., 30-400 ng/mL. Blood specimen (specimen) 11/22/2012 3:32 PM EDT 11/22/2012 3:38 PM EDT Narrative Resulting Agency Comment Spec In Lab Chase Hawkins MD CHEMISTRY ORDERAB LES Performing Organization Address City/[facility]/ZIP Co de Phone Number [facility] MILLEN[facility] * (ABNORMAL) Prothrombin Time (11/22/2012 3:32 PM EDT) Prothrombin Time 31.1(H) 12.0 - 15.0 sec [facility] Comment: [facility] Transfusion Committee Guidelines: INR less than 2.0, PTT less than OR equal to 43.5 seconds, or Fibrinogen greater than or equal to 100 mg/dl indicate adequate procoagulant activity for hemostasis in patients without underlying bleeding disorders. International Normalization Ratio 2.9(H) 0.9 - 1.1 [facility] Blood specimen (specimen) 11/22/2012 3:32 PM EDT 11/22/2012 3:38 PM EDT Narrative Resulting Agency Comment Spec In Lab Chase Hawkins MD HEMATOLOGY ORDERA BLES Performing Organization Address [facility] Co de Phone Number [facility] * VIT D Total Evaluation (11/22/2012 3:32 PM EDT) Vitamin D Total 25 OH 42 30 - 100 ng/mL [facility] Comment: Deficient <10 ng/mL Insufficient 10 to 29 ng/mL Sufficient 30 to 100 ng/mL Potential Intoxication >100 ng/mL According to the [place] National Osteoporosis Foundation, Vitamin D concentrations >30 ng/mL are sufficient to protect bone health. ??The National Kidney Foundation has similarly stated that patients with Vitamin D concentrations <30ng/mL should be considered to be insufficient or deficient. http://www.kidney.org/professionals/KDOQI/guidelines_bone/Guide7.htm http://www.nof.org/professionals/clinical-guidelines The IDS iSYS Vitamin D Immunoassay detects both 25-OH Vitamin D2 and 25-OH Vitamin D3, but only a total Vitamin D concentration is reported. Blood specimen (specimen) 11/22/2012 3:32 PM EDT 11/22/2012 3:38 PM EDT Narrative Resulting Agency Comment Spec In Lab Chase Hawkins MD CHEMISTRY ORDERAB LES Performing Organization Address [facility]/ZIP Co de Phone Number [facility] * 1,25-dihydroxycholecalciferol (11/22/2012 3:32 PM EDT) Vit D 1,25 Dihydroxy (NOVEMBER) 28 18 - 64 pg/mL [facility] Comment: Test Performed by: [address] [address] Managing Manager: Herber Tomas III, M.D. Blood specimen (specimen) 11/22/2012 3:32 PM EDT 11/22/2012 4:23 PM EDT Narrative Resulting Agency Comment Spec In Lab Chase Hawkins MD LAB SEND OUT ORDE RABLES [facility] * PTH (11/22/2012 3:32 PM EDT) Parathyroid Hormone 56 15 - 65 pg/mL [facility] Blood specimen (specimen) 11/22/2012 3:32 PM EDT 11/22/2012 3:39 PM EDT Narrative Resulting Agency Comment Spec In Lab Chase Hawkins MD CHEMISTRY ORDERAB LES [facility] * Tacrolimus level (11/22/2012 3:32 PM EDT) Tacrolimus 4.5 ng/mL [facility] Comment:Trough therapeutic: 5-15 ng/mL Blood specimen (specimen) 11/22/2012 3:32 PM EDT 11/23/2012 8:15 AM EDT Narrative Resulting Agency Comment Spec In Lab Chase Hawkins MD CHEMISTRY ORDERAB LES [facility] * Uric acid (11/22/2012 3:32 PM EDT) Uric Acid 5.6 3.5 - 8.5 mg/dL [facility] Blood specimen (specimen) 11/22/2012 3:32 PM EDT 11/22/2012 3:38 PM EDT Narrative Resulting Agency Comment Spec In Lab Chase Hawkins MD CHEMISTRY ORDERAB LES Performing Organization Address [facility] Co de Phone Number [facility] * Phosphorus (11/22/2012 3:32 PM EDT) Phosphorus 3.1 2.5 - 4.5 mg/dL [facility] Blood specimen (specimen) 11/22/2012 3:32 PM EDT 11/22/2012 3:38 PM EDT Narrative Resulting Agency Comment Spec In Lab Chase Hawkins MD CHEMISTRY ORDERAB LES Performing Organization Address [facility] de Phone Number [facility] * Magnesium (11/22/2012 3:32 PM EDT) Magnesium 0.85 0.69 - 1.07 mmol/L [facility] Blood specimen (specimen) 11/22/2012 3:32 PM EDT 11/22/2012 3:38 PM EDT Narrative Resulting Agency Comment Spec In Lab Chase Hawkins MD CHEMISTRY ORDERAB LES Performing Organization Address [facility] de Phone Number [facility] * (ABNORMAL) Lipid panel (fasting) (11/22/2012 3:32 PM EDT) Cholesterol, Total 142 <=199 mg/dL [facility] Comment: Recommendations of the NCEP Adult Treatment Panel for the following risk cutoff thresholds for the [place] population: Desirable: <200 mg/dL Borderline High: 200-239 mg/dL High: > or = 240 mg/dL Triglyceride 142 <=149 mg/dL [facility] Comment: Reference Range: Normal triglycerides: ??<150 mg/dL Borderline high: ??150-199 mg/dL High: ??200-499 mg/dL Very high: ??>dh=535 mg/dL RAYMOND 2001; 285(19):3945-9488 HDL Cholesterol 37(L) >=40 mg/dL [facility] Comment: Reference range: ??Low HDL: ?? < 40 mg/dL ??Normal: ?40-60 mg/dL ??Desirable: > 60 mg/dL RAYMOND 2001; 285(19):4255-7943 LDL Cholesterol 77 <=99 mg/dL [facility]ILL[facility] Comment: Reference range: ?? Optimal: ?<100 mg/dL ?? Near Optimal/Above Optimal: ?? 100-129 mg/dL ?? Borderline high: ?130-159 mg/dL ?? High: ? 160-189 mg/dL ?? Very high: ?>xb=729 mg/dL RAYMOND 2001: 285(19):1264-4881 Cholesterol/HDL Ratio 3.8 ratio [facility] MILLENNIUM Comment: A Cholesterol to HDL ratio below 4:1 is desirable. ??Studies suggest that increased CAD risk occurs at ratios above 5 for females and above 6 for men. ? [place] Heart Association ??(http://www.americanheart.org) ? Marizol Int Med, 1994; 121:641 ? AM J Med, 1998; 105(1A):48S Blood specimen (specimen) 11/22/2012 3:32 PM EDT 11/22/2012 3:38 PM EDT Narrative Resulting Agency Comment Spec In Lab Chase Hawkins MD CHEMISTRY ORDERAB LES [facility] * (ABNORMAL) Reticulocyte Count (11/22/2012 3:32 PM EDT) Reticulocyte % 0.6 0.5 - 2.4 % [facility]ER MILLENNIUM Retic Abs # 0.030 0.027 - 0.095 x10(6)/mcL [facility] MILLENNIUM Immature Retic% 1.8(L) 2.3 - 15.9 % [facility] MILLENNIUM Reticulated Hgb 32.1 28.5 - 38.9 pg [facility] MILLENNIUM Immature Plt % 2.6 0.0 - 7.4 % [facility] MILLENNIUM Blood specimen (specimen) 11/22/2012 3:32 PM EDT 11/22/2012 3:39 PM EDT Narrative Resulting Agency Comment Spec In Lab Chase Hawkins MD HEMATOLOGY ORDERA BLES [facility] MILLENNIUM * (ABNORMAL) CBC (with Diff) (11/22/2012 3:32 PM EDT) White Blood Cell 5.9 4.0 - 10.0 x10(3)/mc L [facility] MILLENNIUM Red Blood Cell 4.38(L) 4.63 - 6.08 x10(6)/mc L [facility] MILLENNIUM Hemoglobin 12.8(L) 13.7 - 17.5 gm/dL [facility] MILLENNIUM Hematocrit 39.0(L) 40.0 - 51.0 % [facility] MILLENNIUM Mean Cell Volume 89.0 79.0 - 92.0 fL [facility] MILLENNIUM Mean Cell Hemoglobin 29.2 25.6 - 32.2 pg [facility] MILLENNIUM Mean Cell Hemoglobin Concentration 32.8 32.0 - 36.5 gm/dL [facility] MILLENNIUM Platelet 166 145 - 370 x10(3)/mc L [facility] MILLENNIUM RDW Standard Deviation 44.1 35.0 - 46.0 fL C[facility] MILLENNIUM RDW coefficient of variation 13.6 10.9 - 14.4 % CERN[facility] MILLENNIUM Mean Platelet Volume 9.1 9.0 - 12.0 fL [facility] MILLENNIUM Blood specimen (specimen) 11/22/2012 3:32 PM EDT 11/22/2012 3:39 PM EDT Narrative Resulting Agency Comment Spec In Lab Chase Hawkins MD HEMATOLOGY ORDERA BLES [facility] MILLENNIUM * (ABNORMAL) CMP w/fasting Glucose (11/22/2012 3:32 PM EDT) [facility] Glucose Fasting 109(H) 65 - 99 mg/dL CERNER MILLENNIUM Comment: [...] of Diabetes Mellitus, Position Statement from the [place] Diabetes Association. ??Diabetes Care, Volume 33, Supplement 1, Jul 2009 Blood Urea Nitrogen 40(H) 10 - 20 mg/dL [facility]ERN[facility] MILLENNIUM Creatinine 2.08(H) 0.80 - 1.50 mg/dL [facility] MILLENNIUM Comment: Please note that the pediatric reference intervals supplied above were not validated at [facility]. Results from pediatric patients should be interpreted in conjunction to the patient's age, height and muscle mass. Sodium 143 135 - 145 mmol/L [facility] MILLENNIUM Potassium 4.3 3.5 - 5.0 mmol/L [facility] MILLENNIUM Comment: Please note: ??Patients with WBC >100,000 may have falsely elevated Potassium levels. ??For accurate Potassium quantification in these patients send serum separator tube (gold top) for subsequent determinations. ??Contact the Clinical Chemistry Laboratory if there are any questions. Chloride 112(H) 98 - 107 mmol/L [facility] MILLENNIUM Carbon Dioxide 22 22 - 31 mmol/L [facility] MILLENNIUM Anion Gap 9 5 - 15 mmol/L [facility] MILLENNIUM Calcium 8.7 8.5 - 10.5 mg/dL [facility] MILLENNIUM Protein, Total 6.7 6.4 - 8.3 gm/dL [facility] MILLENNIUM Albumin 4.4 3.2 - 5.2 gm/dL [facility] MILLENNIUM Aspartate Aminotransferase 29 0 - 39 unit/L [facility] MILLENNIUM Alanine Aminotransferase 20 0 - 55 unit/L [facility] MILLENNIUM Alkaline Phosphatase 86 40 - 120 unit/L [facility]ERN[facility] MILLENNIUM Bilirubin, Total 0.5 0.2 - 1.3 mg/dL [facility]ERN[facility] MILLENNIUM Bilirubin, Direct 0.1 0.0 - 0.3 mg/dL [facility] MILLENNIUM Est Glomerular Filtration Rate 34(L) >=60 [facility] MILLENNIUM Comment: This estimated GFR [...] internet browser. http://www.nkdep.nih.gov/lab-evaluation.shtml http://www.kidney.org/professionals/ Blood specimen (specimen) 11/22/2012 3:32 PM EDT 11/22/2012 3:38 PM EDT Narrative Resulting Agency Comment Spec In Lab Chase Hawkins MD CHEMISTRY ORDERAB LES [facility] SIMONIUM * BK Quant Urine Result (11/22/2012 3:29 PM EDT) BKV Urine Result Not Detected BUSHRA HUERTAENNIUM BKV Urine Interp BK Virus Urine Result [...] DNA isolated from urine was performed using [employer] BKV(ASR) reagents and the [employer] MAD Incubator 7500 Fast Real-Time PCR System. In addition, the PCR product sequence is confirmed using physical properties (melt curve analysis). This test was developed and its performance determined by the [facility] Molecular Pathology Laboratory. It has not been cleared or approved by the U.S. Food and Drug Administration. This test is used for clinical purposes and should not be considered investigational or for research purposes. The Molecular Pathology Laboratory is certified by the Clinical Laboratory Improvement Act of 1988 and as such is allowed to perform high complexity clinical testing. [facility]ERNER MILLENNIUM Comment: [VERIFIED DATE]11.25.12 Verified By:Nayeli Pugh (Electronic Signature) Urine specimen (specimen) 11/22/2012 3:29 PM EDT 11/23/2012 7:43 AM EDT Narrative Resulting Agency Comment Spec In Lab Chase Hawkins MD HEMATOLOGY ORDERA BLES Performing Organization Address [facility]/ZIP Co de Phone Number CERNER MILLENNIUM * (ABNORMAL) Protein/Creatinine Ratio, urine (11/22/2012 3:29 PM EDT) Creatinine, Urine 121 mg/dL CERNER MILLENNIUM Protein, Urine 291(H) 0 - 12 mg/dL [facility]ERN[facility] MILLENNIUM Protein / Creatinine Ratio, Urine 2.4 ratio [facility]ERN[facility] MILLENNIUM Urine specimen (specimen) 11/22/2012 3:29 PM EDT 11/22/2012 3:32 PM EDT Narrative Resulting Agency Comment Spec In Lab Chase Hawkins MD URINE ORDERABLES Performing Organization Address [facility] Co de Phone Number [facility] MILLENNIUM * Phosphorus, urine, random (11/22/2012 3:29 PM EDT) Phosphorus, Urine 45.3 mg/dL CERNER MILLENNIUM Urine specimen (specimen) 11/22/2012 3:29 PM EDT 11/22/2012 3:32 PM EDT Narrative Resulting Agency Comment Spec In Lab Chase Hawkins MD URINE ORDERABLES Performing Organization Address [facility] Co de Phone Number [facility] MILLENNIUM * Calcium Creatinine Ratio, random urine (11/22/2012 3:29 PM EDT) Calcium, Urine 0.6 mg/dL [facility]NE R MILLENNIUM Creatinine, Urine 121 mg/dL CERNER MILLENNIUM Calcium / Creatinine Ratio, Urine <0.01 ratio CERNER MILLENNIUM Urine specimen (specimen) 11/22/2012 3:29 PM EDT 11/22/2012 3:32 PM EDT Narrative Resulting Agency Comment Spec In Lab Chase Hawkins MD URINE ORDERABLES Performing Organization Address City/[facility] Co de Phone Number CERNER MILLENNIUM * Creatinine, urine, random (11/22/2012 3:29 PM EDT) Creatinine, Urine 121 mg/dL CERN[facility] MILLENNIUM Urine specimen (specimen) 11/22/2012 3:29 PM EDT 11/22/2012 3:32 PM EDT Narrative Resulting Agency Comment Spec In Lab Chase Hawkins MD URINE ORDERABLES Performing Organization Address City/[facility] Co de Phone Number [facility] MILLENNIUM * (ABNORMAL) Urinalysis with microscopic (11/22/2012 3:29 PM EDT) Glucose, Urine Dipstick Negative Negative mg/dL [facility]ERN[facility] MILLENNIUM Protein, Urine Dipstick 300(A) Neg mg/dL [facility] MILLENNIUM Bilirubin, Urine Dipstick Negative Negative mg/dL [facility] MILLENNIUM Urobilinogen, Urine Dipstick Normal mg/dL CERNER MILLENNIUM pH, Urn (dipstick) 5.5 5.0 - 8.0 CERNER MILLENNIUM Blood, Urine Dipstick Trace(A) Neg [facility]ERN[facility] MILLENNIUM Ketone, Urine Dipstick Negative mg/dL [facility] MILLENNIUM Nitrite, Urine Dipstick Negative [facility]ERNER MILLENNIUM Leukocytes, Urine Dipstick Negative mcL CERNER MILLENNIUM Appearance, Urine Dipstick Clear Clear CERNER MILLENNIUM Specific [place] Urine Automated 1.016 1.002 - 1.030 CERNER MILLENNIUM Color, Urine Dipstick Yellow Yellow CERNER MILLENNIUM RBC, Urine 1 0 - 3 /HPF CERNER MILLENNIUM WBC, Urine 1 0 - 3 /HPF CERNER MILLENNIUM Urine specimen (specimen) 11/22/2012 3:29 PM EDT 11/22/2012 3:32 PM EDT Narrative Resulting Agency Comment Spec In Lab Chase Hawkins MD URINE ORDERABLES Performing Organization Address City/State/[facility] Co ne Phone Number [facility] documented in this encounter Visit Diagnoses Diagnosis Epilepsy- Primary Unspecified epilepsy without mention of intractable epilepsy Transplanted kidney Kidney replaced by transplant Need for prophylactic immunotherapy documented in this encounter Care Teams Municipal Engineer Relationship Specialty Start Date End Date Carroll Fuentes DO [address] [place] [address] [place] [place] [address] PCP - General 09/23/11 10/20/22 documented as of this encounter
--- OUTSIDE RECORDS SUMMARY | 2024-04-22 11:15 | XMS_ITS | Encounter Summary ---
Author Organization [facility] [place] [address] Care Team Providers Care Ergonomic Specialist Name Role Phone AlfredoCarroll allison Primary Care Provider [phone] Encounter Details Date Type Department Care Team (Latest Contact Info) Description 03/29/2013 External Results [place] [address] Erika Sweeney Transplanted kidney; Need for prophylactic immunotherapy Social History Tobacco [...] Procedure Name Priority Date/Time Associated Diagnosis Comments [facility] TRANSPLANT FOLLOW UP LABS EXTERNAL RESULTS PANEL Routine 03/27/2013 Transplanted kidney Need for prophylactic immunotherapy documented in this encounter Results * (ABNORMAL) Transplant: Follow up lab Panel (03/27/2013) White Blood Cell 4.30 Hemoglobin 9.1(A) 13.5 - 17.5 Hematocrit 29.1(A) 41.0 - 53.0 Amylase 25 - 110 Lipase 0 - 53 Blood Urea Nitrogen Creatinine 2.3 Tacrolimus 3.9 ABORH Type Anup Hawkins MD CHEMISTRY ORDERAB LES documented in this encounter Visit Diagnoses Diagnosis Transplanted kidney Kidney replaced by transplant Need for prophylactic immunotherapy documented in this encounter Care Teams Ergonomic Specialist Relationship Specialty Start Date End Date Carroll Fuentes DO [address] [place] [address] PCP - General 09/23/11 10/20/22 documented as of this encounter
--- OUTSIDE RECORDS SUMMARY | 2024-04-22 11:15 | XMS_ITS | Encounter Summary ---
Author Organization [facility] Address [facility] [address] Care Team Providers Care Logistics Program Manager Name Role Phone AlfredoCarroll allison Primary Care Provider [phone] Encounter Details Date Type Department Care Team (Latest Contact Info) Description 03/27/2013 8:32 PM EDT - 03/27/2013 11:59 PM EDT Hospital [place] [address] Anup Hawkins MD [facility] [place] [address] Discharge Disposition: Home Social History Tobacco Use [...] Sig Dispensed Refills Start Date End Date PROGRAF 1 mg capsuleIndications:Tr ansplanted kidney Take 1 capsule by mouth 2 times daily. KIDNEY TRANSPLANT V42.0. TRANSPLANT DATE; 11-26-02 60 capsule 0 03/22/2013 05/15/2013 allopurinol (ZYLOPRIM) 100 mg tabletIndications:gou t Take 1.5 tablets by mouth daily. Indications: Gout 60 tablet 2 02/17/2013 06/15/2013 hydrALAZINE (APRESOLINE) 50 mg tabletIndications:HTN (hypertension) Take 1 tablet by mouth 2 times daily. 180 tablet 1 02/08/2013 08/11/2013 DILTiazem (DILACOR XR) 120 mg 24 hr capsule take 1 capsule by mouth once daily 90 capsule 3 01/29/2013 01/31/2014 CELLCEPT 250 mg capsuleIndications:S/ P kidney transplant Take 4 capsules by mouth 2 times daily. Kidney Transplant V42.0. Transplant Date; 11-26-02 240 capsule 11 01/25/2013 08/09/2013 levothyroxine (SYNTHROID) 100 mcg Tablet Take 100 [...] Date/Time Associated Diagnosis Comments TACROLIMUS LEVEL Routine 03/27/2013 9:20 AM EDT documented in this encounter Results * Tacrolimus level (03/27/2013 9:20 AM EDT) Tacrolimus 3.9 ng/mL [facility] Comment:Trough therapeutic: 5-15 ng/mL Blood specimen (specimen) 03/27/2013 9:20 AM EDT 03/28/2013 8:07 AM EDT Narrative Resulting Agency Comment Spec In Lab Anup Hawkins MD CHEMISTRY ORDERAB LES Performing Organization Address City/State/[facility] Co [place] Phone Number [facility] documented in this encounter Visit Diagnoses Not on filedocumented in this encounter Care Teams Logistics Program Manager Relationship Specialty Start Date End Date Carroll Fuentes DO [address] [place] [address] PCP - General 09/23/11 10/20/22 documented as of this encounter
--- OUTSIDE RECORDS SUMMARY | 2024-04-22 11:15 | XMS_ITS | Encounter Summary ---
Author Organization [facility] Address [facility] [place] [address] Care Team Providers Care Projector Operator Name Role Phone AlfredoCarroll allison Primary Care Provider Reason for Visit * Reason Comments Other Encounter Details Date Type Department Care Team (Late st Contact Info) Description 04/25/2013 Telephone [place] [phone] Janeth Nixon, RN Social History Tobacco Use [...] Miscellaneous Notes * Telephone Encounter - Janeth Nixon RN - 04/25/2013 11:25 AM EDT Message copied by JANETH NIXON on WedApr 25, 2013 11:25 AM ------ Message from: LORI MORALES Created: WedApr 25, 2013 10:33 AM Contact: Metronidazole .75mg topical cream was prescribed by Dermatology. Is it okay to use? Please call. Thanks Laurie 04/25/13 @ 11:25 A.M. hereditary cancer program coordinator note: After conferring with Dr. Hawkins regarding patient's question, I advised Adama that he can take Metronidazole cream post transplant. Most creams are not absorbed systemically so they are safe post transplant. documented in this encounter Plan of Treatment Not on file documented as of this encounter Visit Diagnoses Not on filedocumented in this encounter Care Teams Projector Operator Relationship Specialty Start Date End Date Carroll Fuentes DO [address] [place] [address] PCP - General 09/23/11 10/20/22 documented as of this encounter
--- OUTSIDE RECORDS SUMMARY | 2024-04-22 11:15 | XMS_ITS | Encounter Summary ---
Author Organization [facility] [address] Care Team Providers Care Gasoline Engine Inspector Name Role Phone AlfredoCarroll allison Primary Care Provider [phone] Encounter Details Date Type Department Care Team (Late st Contact Info) Description 01/19/2013 Telephone [place] [phone] Leisa Angulo Social History Tobacco Use Types [...] * Telephone Encounter - Leisa Angulo - 01/19/2013 1:33 PM EDT Placed call to patient along with Bashir Wild to follow up on information needed for the [facility] application for Cell[employer]. [facility] had faxed requesting the patient's insurance information. Upon review of the patient's account it was discovered that he has active [place] Medicaid. Advised the patient that he should have his pharmacy bill Medicaid for his Cellcept documented in this encounter Plan of Treatment Not on file documented as of this encounter Visit Diagnoses Not on filedocumented in this encounter Care Teams Gasoline Engine Inspector Relationship Specialty Start Date End Date Carroll Fuentes DO [address] [place] [address] PCP - General 09/23/11 10/20/22 documented as of this encounter
--- OUTSIDE RECORDS SUMMARY | 2024-04-22 11:15 | XMS_ITS | Encounter Summary ---
Author Organization [facility] Address [facility] [place] [address] Care Team Providers Care Fire Watchman Name Role Phone Carroll Fuentes DO Primary Care Provider [phone] Reason for Visit * Reason Comments Medication Refill Encounter Details Date Type Department Care Team (Late st Contact Info) Description 02/07/2013 Refill Solid [place] [address] Anup Hawkins MD [facility] [place] [address] HTN (hypertension) (Primary Dx) Social History Tobacco [...] hypertension documented in this encounter Care Teams Fire Watchman Relationship Specialty Start Date End Date Carroll Fuentes DO [address] [place] [address] PCP - General 09/23/11 10/20/22 documented as of this encounter
--- OUTSIDE RECORDS SUMMARY | 2024-04-22 11:15 | XMS_ITS | Encounter Summary ---
Author Organization [facility] [place] [address] Care Team Providers Care Customer Marketing Manager Name Role Phone LafredoCarroll allison Primary Care Provider [phone] Reason for Visit * Reason Onset Date Comments Other 03/21/2013 [facility]-Quick Start for Prograf Encounter Details Date Type Department Care Team (Late st Contact Info) Description 03/21/2013 [place] [phone] Nanda Tao Other (MAP-Quick Start for Prograf) Social History Tobacco Use Types Packs/Day Years [...] encounter Miscellaneous Notes * Telephone Encounter - Nanda Tao - 03/21/2013 3:02 PM EDT MAP-Quick Start for Prograf Returned Adama's phone call need to complete deon kapadia. Spoke to Adama- completed quick start. Sent Rx to Rashawn Saxena for Dr. Hawkins to sign and fax to [employer]. Advised Adama we need copy of income doc to complete annual [email or web address] documented in this encounter Plan of Treatment Not on file documented as of this encounter Visit Diagnoses Not on filedocumented in this encounter Care Teams Customer Marketing Manager Relationship Specialty Start Date End Date Carroll Fuentes DO [address] [place] [address] PCP - General 09/23/11 10/20/22 documented as of this encounter
--- OUTSIDE RECORDS SUMMARY | 2024-04-22 11:15 | XMS_ITS | Encounter Summary ---
Author Organization [facility] [place] [address] Care Team Providers Care Data Programmer Name Role Phone AlfredoCarroll allison Primary Care Provider [phone] Reason for Visit * Reason Onset Date Comments Other 05/11/2013 MAP-Online Appl for Prograf, Rx form to Encounter Details Date Type Department Care Team (Late st Contact Info) Description 05/11/2013 Telephone [place] [phone] Nanda Tao Other (MAP-Online Appl for Prograf, Rx form to ) Social History Tobacco Use Types Packs/Day Years [...] * Telephone Encounter - Nanda Tao - 05/11/2013 9:37 AM EDT MAP-Online Appl for Prograf, Rx form to Dr Suarez called Adama-collected annual appl info. Completed online annual enrollment for Mr. Ram for Prograf. Sent Rx form to Rashawn Saxena for Dr. Hawkins to sign, date and fax to [email or web address] documented in this encounter Plan of Treatment Not on file documented as of this encounter Visit Diagnoses Not on filedocumented in this encounter Care Teams Data Programmer Relationship Specialty Start Date End Date Carroll Fuentes DO [address] [place] [address] PCP - General 09/23/11 10/20/22 documented as of this encounter
--- OUTSIDE RECORDS SUMMARY | 2024-04-22 11:15 | XMS_ITS | Encounter Summary ---
Author Organization [facility] Address [facility] [place] [address] Care Team Providers Care State Auditor Name Role Phone AlfredoCarroll allison Primary Care Provider Encounter Details Date Type Department Care Team (Latest Contact Info) Description 02/15/2013 8:47 PM EDT - 02/15/2013 11:59 PM EDT Hospital [place] [address] Anup Hawkins MD [facility] [place] [address] Discharge Disposition: Home Social History Tobacco Use [...] Date End Date hydrALAZINE (APRESOLINE) 50 mg tabletIndications:HTN (hypertension) Take [...] times daily. 180 tablet 3 11/21/2012 11/07/2013 allopurinol (ZYLOPRIM) 100 mg tabletIndications:gou t Take 150 mg by mouth daily. Indications: Gout 02/17/2013 warfarin (COUMADIN) 5 mg tablet Take 1 tablet (5 mg) by mouth on , and 1.5 tablets (7.5 mg) on all other days. Weekly dose = 50 mg. Take at the same time each day, preferably between 5:00 and 6:00 PM. 01/11/2014 PROGRAF 1 mg capsuleIndications:Tr ansplanted kidney Take 1 capsule by mouth 2 times daily. KIDNEY TRANSPLANT V42.0. TRANSPLANT DATE; 11-26-02 60 capsule 11 01/06/2012 03/22/2013 AMOXICILLIN TRIHYDRATE (TRIMOX ORAL) Take 2,000 mg by mouth. 1 hour Prior to dental procedures 05/11/2017 metoprolol tartrate (LOPRESSOR) 50 mg tablet Take 50 mg by mouth 3 times daily. 12/03/2010 10/20/2017 documented as of this encounter Plan of Treatment Not on file documented as of this encounter Procedures Procedure Name Priority Date/Time Associated Diagnosis Comments TACROLIMUS LEVEL Routine 02/15/2013 3:15 PM EDT documented in this encounter Results * Tacrolimus level (02/15/2013 3:15 PM EDT) Tacrolimus 3.6 ng/[facility] Comment:Trough therapeutic: 5-15 ng/mL Blood specimen (specimen) 02/15/2013 3:15 PM EDT 02/17/2013 8:05 AM EDT Narrative Resulting Agency Comment Spec In Lab Anup Hawkins MD CHEMISTRY ORDERAB LES [facility] documented in this encounter Visit Diagnoses Not on filedocumented in this encounter Care Teams State Auditor Relationship Specialty Start Date End Date Carroll Fuentes DO [address] [place] [address] PCP - General 09/23/11 10/20/22 documented as of this encounter
--- OUTSIDE RECORDS SUMMARY | 2024-04-22 11:15 | XMS_ITS | Encounter Summary ---
Author Organization [facility] Address [facility] [place] [address] Care Team Providers Care Store Clerk Checker Name Role Phone AlfredoCarroll allison Primary Care Provider [phone] Encounter Details Date Type Department Care Team (Latest Contact Info) Description 01/20/2013 6:49 PM EDT - 01/20/2013 11:59 PM EDT Hospital [place] [address] Anup Hawkins MD [facility] [place] [address] Discharge Disposition: Home Social History Tobacco Use [...] Date/Time Associated Diagnosis Comments TACROLIMUS LEVEL Routine 01/20/2013 9:15 AM EDT documented in this encounter Results * Tacrolimus level (01/20/2013 9:15 AM EDT) Tacrolimus 3.8 ng/mL [facility] Comment:Trough therapeutic: 5-15 ng/mL Blood specimen (specimen) 01/20/2013 9:15 AM EDT 01/23/2013 8:06 AM EDT Narrative Resulting Agency Comment Spec In Lab Anup Hawkins MD CHEMISTRY ORDERAB LES Performing Organization Address City/State/[facility] Co de Phone Number [facility] documented in this encounter Visit Diagnoses Not on filedocumented in this encounter Care Teams Store Clerk Checker Relationship Specialty Start Date End Date Carroll Fuentes DO [address] [place] [address] PCP - General 09/23/11 10/20/22 documented as of this encounter
--- OUTSIDE RECORDS SUMMARY | 2024-04-22 11:15 | XMS_ITS | Encounter Summary ---
Author Organization [facility] Address [facility] [place] [address] Care Team Providers Care Wool Hat Finisher Name Role Phone Carroll Fuentes DO Primary Care Provider Reason for Visit * Reason Onset Date Comments Medication Refill 01/25/2013 Encounter Details Date Type Department Care Team (Late st Contact Info) Description 01/25/2013 Refill [place] [address] Anup Hawkins MD [facility] [place] [address] S/P kidney transplant (Primary Dx) Social History [...] transplant documented in this encounter Care Teams Wool Hat Finisher Relationship Specialty Start Date End Date Carroll Fuentes DO [address] [place], [place] [address] PCP - General 09/23/11 10/20/22 documented as of this encounter
--- OUTSIDE RECORDS SUMMARY | 2024-04-22 11:15 | XMS_ITS | Encounter Summary ---
Author Organization [facility] Address [facility] [place] [address] Care Team Providers Care Supervising Editor Trailer Name Role Phone Carroll Fuentes DO Primary Care Provider [phone] Reason for Visit * Reason Onset Date Comments Medication Refill 05/15/2013 Encounter Details Date Type Department Care Team (Late st Contact Info) Description 05/15/2013 Refill [place] [address] Anup Hawkins MD [facility] [place] [address] Transplanted kidney (Primary Dx) Social History Tobacco Use Types [...] as of this encounter Visit Diagnoses Diagnosis Transplanted kidney- Primary Kidney replaced by transplant documented in this encounter Care Teams Supervising Editor Trailer Relationship Specialty Start Date End Date Carroll Fuentes DO [address] [place], [place] [address] PCP - General 09/23/11 10/20/22 documented as of this encounter
--- OUTSIDE RECORDS SUMMARY | 2024-04-22 11:15 | XMS_ITS | Encounter Summary ---
Author Organization [facility] Address [facility] [place] [address] Care Team Providers Care Front Office Assistant Name Role Phone AlfredoCarroll geiger Primary Care Provider [phone] Encounter Details Date Type Department Care Team (Late st Contact Info) Description 06/23/2013 External Results [place] [address] Anand Winn I, [place] [address] Social History Tobacco Use Types Packs/Day Years [...] Procedure Name Priority Date/Time Associated Diagnosis Comments [facility] TRANSPLANT FOLLOW UP LABS EXTERNAL RESULTS PANEL Routine 06/22/2013 documented in this encounter Results * (ABNORMAL) Transplant: Follow up lab request - External Results (06/22/2013) White Blood Cell 5.14 Hemoglobin 10.8(A) 13.5 - 17.5 Hematocrit 34.5(A) 41.0 - 53.0 Amylase 25 - 110 Lipase 0 - 53 Blood Urea Nitrogen 44 Creatinine 2.0 Tacrolimus ABORH Type Historical Provider CHEMISTRY ORDERAB LES documented in this encounter Visit Diagnoses Not on filedocumented in this encounter Care Teams Front Office Assistant Relationship Specialty Start Date End Date Carroll Fuentes DO [address] [facility] [address] [place] [address] PCP - General 09/23/11 10/20/22 documented as of this encounter
--- OUTSIDE RECORDS SUMMARY | 2024-04-22 11:15 | XMS_ITS | Encounter Summary ---
Author Organization [facility] Address [facility] [place] [address] Care Team Providers Care President Educational Institution Name Role Phone Carroll Fuentes DO Primary Care Provider [phone] Reason for Visit * Reason Comments Follow-up nevus Encounter Details Date Type Department Care Team (Late st Contact Info) Description 05/23/2013 9:30 AM EST Follow-Up Dermatology at [facility] [address] [place] [address] CLINIC, DR LAXMI Dickerson, Damián Ventura MD [facility] [place] [address] Rosacea (Primary Dx); Seborrheic keratosis Discharge Disposition: Home Social History Tobacco Use [...] as of this encounter Progress Notes * Abimbola Barlow LPN - 05/23/2013 9:54 AM EST DERMATOLOGY ESTABLISHED PATIENT CLINIC NOTE Date of service: 05/23/2013 Adama Ram : 1960 Provider: Damián Dickerson MD PROBLEM: 2 month follow up SKIN HISTORY: Rosacea Benign Nevi Actinic Keratosis Medical History: Coumadin, alternating doses HPI Adama Ginna Ram is a 52 y.o. year old male who was last seen by me on 04/18/13 and is here for a two month follow. He states that his rosacea cleared up on his neck, but has appeared on his nose and hasbeen using Metro cream. ADR: Allergies Allergen Reactions ??? Benazepril Hcl ??? Hydrochlorothiazide ??? Pollen Extracts Sneezing/runny nose ROS General: feeling well Skin: denies other skin complaints EXAM General: NAD, pleasant, cooperative A focal exam was performed today on: Face Skin: Significant skin findings: A. Scattered red papules/pustules on tip of nose with diffuse erythema and telangiectasia B. Multiple 0.4-1 cm, brown-black papules/plaques with waxy stuck on appearance on trunk ASSESSMENT/PLAN: A. Rosacea -Take cold showers, avoid hot showers -Avoid spicy foods -Continue with Metro gel, applying to affected areas Rx: Doxycycline 100mg po twice daily for 30 days. Instructed to take with a full glass of water andnot to lie down within 30 minutes of taking dose. Advised of interaction with calcium, iron, MVI. Side effects and dosing of doxycycline reviewed, including but not limited to GI upset, esophagitis, cost of medication, photosensitivity, pseudotumor cerebri, possibility of vaginal yeast infection, and contraindication. B. Seborrheic Keratosis -Patient reassured areas are benign in nature. RTC: PRN I am documenting this encounter acting as the scribe for and in the presence of Dr. Dickerson: Abimbola Barlow LPN I performed the above scribed service and agree with the accuracy of the documentation in this encounter. Damián Dickerson MD Section of Dermatology [facility] documented in this encounter Plan of Treatment Not on file documented as of this encounter Visit Diagnoses Diagnosis Rosacea- Primary Seborrheic keratosis Other seborrheic keratosis documented in this encounter Care Teams President Educational Institution Relationship Specialty Start Date End Date Carroll Fuentes DO [address] [place] [address] PCP - General 09/23/11 10/20/22 documented as of this encounter
--- OUTSIDE RECORDS SUMMARY | 2024-04-22 11:15 | XMS_ITS | Encounter Summary ---
Author Organization [facility] Address [facility] [place] [address] Care Team Providers Care Folder Inspector Name Role Phone AlfredoCarroll allison Primary Care Provider [phone] Reason for Visit * Reason Comments Kidney Transplant Follow-up 11/26/2002; biopsy proven graft dysfunction due to recurrent IgA nephropathy/tac toxicity Encounter Details Date Type Department Care Team (Late st Contact Info) Description 05/23/2013 8:30 AM EST Follow-Up [place] [id number] Anup Hawkins MD [facility] [place] [address] Transplanted kidney; Need for prophylactic immunotherapy; Health care maintenance Discharge Disposition: Home Social History Tobacco Use [...] Sign Reading Time Taken Comments Blood Pressure 123/76 05/23/2013 8:29 AM EST Pulse 52 05/23/2013 8:29 AM EST Temperature 36.4 ??C (97.6 ??F) 05/23/2013 8:29 AM ES T Respiratory Rate - - Oxygen Saturation - - Inhaled Oxygen Concentration - - Weight 86.3 kg (190 lb 3.2 oz) 05/23/2013 8:29 A M EST Height 182.9 cm (6') 05/23/2013 8:29 AM EST Body Mass Index 25.8 05/23/2013 8:29 AM EST documented in this encounter Progress Notes * Anup Hawkins MD - 05/23/2013 8:50 AM EST [facility] Transplant Nephrology Follow Up Date: 05/23/2013 Patient: Adama Ram Transplant Date: 11/26/02 [place] [facility] diagnosis: IgA Nephropathy Transplant: Mr. Adama Ram is a White Not nor 52 y.o. male who is Status Post Kidney transplantation on 11/26/02. Post Transplant Course: Mr. Adama Ram post-op course was eventful delayed graft function, recurrent IgA nephropathy and Prograf toxicity, and adjustments in his anticonvulsants and was dischargedon 12/03/2002. Interim History: Mr. Adama Ram presents to clinic for routine follow-up of care, patient is out10 yr 5 mo from Kidney transplantation. Last contact with patient: November 2012 Any serious illness, injuries, or hospitalizations since last visit: No Average Daily Fluid Intake and Output: Oral intake 3000 + cc per day. Predominantly drinks Water. Urine Output 3000 + cc per day Home Vital Signs: BP: 120/80 Heart Rate: 60 Edema: none Nausea/Vomiting: no nausea and no vomiting Diarrhea: None Constipation: None Routine Health Maintenance: ??? Tetanus andTetanus booster UTD Vaccine (every 10 Years) ??? Colonoscopy Every 5 Years ??? Influenza (Flu) Vaccine Yearly ( virus only) ??? Hepatitis C Screening (B. [id number]) ??? Pneumovax Q5 years (given today) ??? Yearly ophthalmology exam ??? Biannual dental exam (with antibiotic prophylaxis) ??? Dermatology evaluation yearly ??? Dexascan on periodic basis (along with yearly 24 hour urine testing) [...] BCC (basal cell carcinoma of skin) 173.91 Past Medical History Diagnosis Date ??? DVT (deep venous thrombosis) ??? BP (high blood pressure) ??? Gout ??? TBI (traumatic brain injury) 1979 Past Surgical History Procedure Date ??? Created [...] [facility] ? ? Exc skin malig >4cm trunk, arm, leg 04/19/2012 EXC MALIGNANT LESION, MICHAEL > 4.0CM, TRUNK performed by SABRINA SANCHEZ at [facility] MAIN OR No family history on file. SOCIAL HISTORY: History Substance Use Topics ??? Smoking status: Former Smoker Types: Cigarettes Quit date: 12/03/2000 ??? Smokeless tobacco: Former User Quit date: 04/14/2001 ??? Alcohol Use: No Visit Vitals: BP 123/76 Pulse 52 Temp 36.4 ??C (97.6 ??F) (Oral) Ht 182.9 cm (6') Wt 86.274kg (190 lb 3.2 oz) BMI 25.80 kg/m2 Estimated Body mass index is 25.80 kg/(m^2) as calculated from the following: Height as of this encounter: 6' 0(1.829 m). Weight as of this encounter: 190 lb 3.2 oz(86.274 kg). Diagnoses: 1. Transplanted kidney Ferritin, Folate, serum, Iron and TIBC, Vitamin B12, Prothrombin Time, Urinalysis with microscopic, Cholesterol, total, CBC (with Diff), Reticulocyte Count, Tacrolimus level, Uric acid, Phosphorus, Magnesium, Comprehensive metabolic panel (non-fasting), Protein/Creatinine Ratio, urine, TSH, CMV Antibody, IgG, CMV Antibody, IgM, Ferritin, Folate, serum, Iron and TIBC, Vitamin B12, Prothrombin Time, Urinalysis with microscopic, Cholesterol, total, CBC (with Diff), Reticulocyte Count, Tacrolimus level, Uric acid, Phosphorus, Magnesium, Comprehensive metabolic panel (non- fasting), Protein/Creatinine Ratio, urine, TSH, CMV Antibody, IgG, CMV Antibody, IgM 2. Need for prophylactic immunotherapy Ferritin, Folate, serum, Iron and TIBC, Vitamin B12, Prothrombin Time, Urinalysis with microscopic, Cholesterol, total, CBC (with Diff), Reticulocyte Count, Tacrolimus level, Uric acid, Phosphorus, Magnesium, Comprehensive metabolic panel (non-fasting), Protein/Creatinine Ratio, urine, TSH, CMV Antibody, IgG, CMV Antibody, IgM, Ferritin, Folate, serum, Iron and TIBC, Vitamin B12, Prothrombin Time, Urinalysis with microscopic, Cholesterol, total, CBC (with Diff), Reticulocyte Count, Tacrolimus level, Uric acid, Phosphorus, Magnesium, Comprehensive metabolic panel (non- fasting), Protein/Creatinine Ratio, urine, TSH, CMV Antibody, IgG, CMV Antibody, IgM Allergies: Benazepril hcl; Hydrochlorothiazide; and Pollen extracts Immunizations: Most Recent Immunizations Administered Date(s) Administered ??? Hepatitis B 10/31/2001 ??? Influenza Split 04/20/2013 ??? Influenza Whole 04/09/2009 Current Meds: Current Outpatient Prescriptions Medication Sig Dispense Refill ??? PROGRAF 1 mg capsule Take 1 capsule by mouth 2 times daily. KIDNEY TRANSPLANT V42.0. TRANSPLANTDATE; 11-26-02 180 capsule 3 ??? metroNIDAZOLE (METROCREAM) 0.75 % cream APPLY TO FACE TWICE DAILY NEEDED. 45 g 0 ??? allopurinol (ZYLOPRIM) 100 mg tablet Take 1.5 tablets by mouth daily. Indications: Gout 60 tablet 2 ??? hydrALAZINE (APRESOLINE) 50 mg tablet Take 1 tablet by mouth 2 times daily. 180 tablet 1 ??? DILTiazem (DILACOR XR) 120 mg 24 hr capsule take 1 capsule by mouth once daily 90 capsule 3 ??? CELLCEPT 250 mg capsule Take 4 capsules by mouth 2 times daily. Kidney Transplant V42.0. Transplant Date; 11-26-02 240 capsule 11 ??? levothyroxine (SYNTHROID) 88 mcg tablet Take 88 mcg by mouth daily. ??? losartan (COZAAR) 25 mg tablet Take 1 tablet by mouth daily. 90 tablet 3 ??? leveTIRAcetam (KEPPRA) 1,000 mg tablet Take 1 tablet by mouth 2 times daily. 180 tablet 3 ??? warfarin (COUMADIN) 5 [...] Labs: Lab Results Component Value Date WBC 6.0 05/23/2013 HCT 31.8* 05/23/2013 HGB 10.2* 05/23/2013 PLATELET 191 05/23/2013 K 4.5 05/23/2013 CREATININE 2.00* 05/23/2013 BUN 50* 05/23/2013 GLUCOSE 99 05/23/2013 PHOS 3.4 05/23/2013 MAGNESIUM 0.73 05/23/2013 Urinalysis: Component Value Date/Time SPGRAVITYUA 1.011 05/23/2013 0753 PHUADIP 5.5 05/23/2013 0753 PROTEINUADIP 30* 05/23/2013 0753 GLUCOSEU Negative 05/23/2013 0753 KETONESUA Negative 05/23/2013 0753 UROBILIUADIP Normal 05/23/2013 0753 BLOODUADIP Negative 05/23/2013 0753 NITRATEUA Negative 05/23/2013 0753 LEUKOESTERUA Negative 05/23/2013 0753 WBCUA 1 05/23/2013 0753 RBCU <1 05/23/2013 0753 BILIRUBINUA Negative 05/23/2013 0753 Serologies (CMV and EBV): No results found for this basename: CMVIGG, CMVIGM, EBVAB, EBVIGGAB, EBVIGMAB, EBVINTERP HPI: Adama hasn't been seen since November. He had an uneventful summer and Fall and is doing reasonably well.He is due to see the seafood technology specialist again today due to rosacea control issues. Otherwise he feels fine, received a flu shot, has seen his eye doctor and routinely follows up withhis PCP. I gave him a pneumovax shot today and he will be due for another in 2018. ROS: All ROS in all organ systems were negative/ Physical Exam: Constitutional: healthy, alert, not in acute distress and well developed HENT: ENT exam normal, no neck nodes or sinus tenderness Head: Normocephalic, without obvious abnormality, atraumatic, sinuses nontender to percussion Eyes: conjunctivae/corneas clear. PERRL, EOM's intact. Fundi benign. Neck: supple, no adenopathy and thyroid normal in size, no nodules or tenderness Cardiovascular: CVS exam BP noted to be well controlled today in office, S1, S2 normal, no gallop, no murmur, chest clear, no JVD, no HSM, no edema Pulmonary/Chest: Normal chest wall and respirations. Clear to auscultation. Abdominal: soft, non-tender, without masses or organomegaly Musculoskeletal: negative Neurological:symmetric DTRs and desk monitor Skin:rosacea appears controlled; Assessment and Plan: In November 2012 Dropped his tacrolimus dose to 1 mg BID and reinitiated Cell cept (MMF) 750 mg BID. (hehas not been able to tolerate prednisone) Adama Ram is out [id number] from Kidney transplantation. Mr. Adama Ram is maintaining excellent graft function. Patient remains well hydrated. Patient is encouraged to continue with 4 +liters of fluid intake per day. I also encouraged patient to keep up with all recommended health maintenance visits, routine lab testing and screenings. Immunosuppression reviewed and adjusted: Patient is on: mycophenolate and tacrolimus Lab Results Component Value Date TACROLIMUS 3.9 03/27/2013 Prograf: 1 mg BID. Will check today's level, when available, and adjust as needed. Cellcept 1000 mg BID. Hypertension Management: good Hyperlipidemia Management: good Calcium and phosphorous Management: good Magnesium Management: good Patient's Functional Status is: 100% Normal, no complaints, no evidence of disease Ongoing text from episode transplant note: Falling hgb likely due to high dose MMF. Continue to observe and if anemia remains drop dosing to 750 mg BID. Recommendations: All age appropriate and post-transplant, routine health maintenance tests and screenings are strongly recommended. These include the above (noting that the time intervals are different than that of the non-transplant community,) but are not limited to, the for mentioned. RTC: 6 month interval due to recurrent disease. Yearly visit to transplant clinic is recommended in addition to routine, post- transplant lab work Qmonth. Mr. Adama Ram was given a standing order for above mentioned lab work at today's visit. documented in this encounter Plan of Treatment Not on file documented as of this encounter Procedures Procedure Name Priority Date/Time Associated Diagnosis Comments PROTEIN/CREATININE RATIO, URINE STAT 05/23/2013 7:53 AM EST Transplanted kidney Need for prophylactic immunotherapy Health care maintenance URINALYSIS WITH REFLEX CULTURE STAT 05/23/2013 7:53 AM EST Transplanted kidney Need for prophylactic immunotherapy Health care maintenance DIFFERENTIAL, AUTOMATED STAT 05/23/2013 7:45 AM EST Transplanted kidney Need for prophylactic immunotherapy Health care maintenance TACROLIMUS LEVEL STAT 05/23/2013 7:45 AM EST Transplanted kidney Need for prophylactic immunotherapy Health care maintenance CMV ANTIBODY, IGM STAT 05/23/2013 7:4 5 AM EST Transplanted kidney Need for prophylactic immunotherapy Health care maintenance IRON AND TIBC STAT 05/23/2013 7:45 AM EST Transplanted kidney Need for prophylactic immunotherapy Health care maintenance CMV ANTIBODY, IGG STAT 05/23/2013 7:4 5 AM EST Transplanted kidney Need for prophylactic immunotherapy Health care maintenance PROTHROMBIN TIME STAT 05/23/2013 7:45 AM EST Transplanted kidney Need for prophylactic immunotherapy Health care maintenance RETICULOCYTE COUNT STAT 05/23/2013 7: 45 AM EST Transplanted kidney Need for prophylactic immunotherapy Health care maintenance CBC (WITH DIFF) STAT 05/23/2013 7:45 AM EST Transplanted kidney Need for prophylactic immunotherapy Health care maintenance URIC ACID STAT 05/23/2013 7:45 AM EST Transplanted kidney Need for prophylactic immunotherapy Health care maintenance TSH STAT 05/23/2013 7:45 AM EST Transplanted kidney Need for prophylactic immunotherapy Health care maintenance PHOSPHORUS STAT 05/23/2013 7:45 AM EST Transplanted kidney Need for prophylactic immunotherapy Health care maintenance MAGNESIUM STAT 05/23/2013 7:45 AM EST Transplanted kidney Need for prophylactic immunotherapy Health care maintenance FOLATE, SERUM STAT 05/23/2013 7:45 AM EST Transplanted kidney Need for prophylactic immunotherapy Health care maintenance FERRITIN STAT 05/23/2013 7:45 AM EST Transplanted kidney Need for prophylactic immunotherapy Health care maintenance VITAMIN B12 STAT 05/23/2013 7:45 AM EST Transplanted kidney Need for prophylactic immunotherapy Health care maintenance CHOLESTEROL, TOTAL STAT 05/23/2013 7: 45 AM EST Transplanted kidney Need for prophylactic immunotherapy Health care maintenance COMPREHENSIVE METABOLIC PANEL STAT 05/23/2013 7:45 AM EST Transplanted kidney Need for prophylactic immunotherapy Health care maintenance documented in this encounter Results * (ABNORMAL) Protein/Creatinine Ratio, urine (05/23/2013 7:53 AM EST) Creatinine, Urine 70 mg/dL CERNER MILLENNIUM Protein, Urine 74(H) 0 - 12 mg/dL CERNER MILLENNIUM Protein / Creatinine Ratio, Urine 1.1 ratio CERNER MILLENNIUM Urine specimen (specimen) 05/23/2013 7:53 AM EST 05/23/2013 7:59 AM EST Narrative Resulting Agency Comment Spec In Lab Anup Hawkins MD URINE ORDERABLES CERNER MILLENNIUM * (ABNORMAL) Urinalysis with microscopic (05/23/2013 7:53 AM EST) Glucose, Urine Dipstick Negative Negative mg/dL CERNER [...] 8.0 CERNER MILLENNIUM Blood, Urine Dipstick Negative mg/dL CERNER MILLENNIUM Ketone, Urine Dipstick Negative mg/dL CERNER MILLENNIUM Nitrite, Urine Dipstick Negative CERNER MILLENNIUM Leukocytes, Urine Dipstick Negative mcL CERNER MILLENNIUM Appearance, Urine Dipstick Clear Clear CERNER MILLENNIUM Specific [place] Urine Automated 1.011 1.002 - 1.030 CERNER MILLENNIUM Color, Urine Dipstick Light Yellow Yellow CERNER MILLENNIUM RBC, Urine <1 0 - 3 /HPF CERNER MILLENNIUM WBC, Urine 1 0 - 3 /HPF CERNER MILLENNIUM Urine specimen (specimen) 05/23/2013 7:53 AM EST 05/23/2013 8:00 AM EST Narrative Resulting Agency Comment Spec In Lab Anup Hawkins MD URINE ORDERABLES CERNER MILLENNIUM * Differential, Automated (05/23/2013 7:45 AM EST) Neutrophil % 64.6 34.0 - 71.0 % CERNER MILLENNIUM Neutrophil Absolute 3.86 1.50 - 6.30 x10(3)/mcL CERNER MILLENNIUM Lymph % 24.9 19.0 - 53.0 % CERNER MILLENNIUM Lymphocytes Abs 1.5 1.0 - 3.6 x10(3)/mcL CERNER MILLENNIUM Monocyte % 7.2 4.0 - 13.0 % CERNER MILLENNIUM Monocyte Abs 0.4 0.2 - 1.0 x10(3)/mcL CERNER MILLENNIUM Eos % 2.8 0.0 - 7.0 % CERNER MILLENNIUM Eosinophils Abs 0.2 0.0 - 0.5 x10(3)/mcL CERNER MILLENNIUM Basophil % 0.3 0.0 - 2.0 % CERNER MILLENNIUM Baso Absolute 0.0 0.0 - 0.2 x10(3)/mcL CERNER MILLENNIUM Immature Gran % 0.20 0.00 - 0.66 % CERNER MILLENNIUM Comment: Immature granulocytes(IG's)percentage and absolute count will include metamyelocytes, myelocytes, and promyelocytes. Blood smears from CBCs yielding IG's will be scanned manually for concordance. If this scan disagrees with the automated IG or if promyelocytes are noted, a manual differential will be performed. Immature Gran Absolute 0.01 0.00 - 0.05 x10(3)/mcL CERNER MILLENNIUM Blood specimen (specimen) 05/23/2013 7:45 AM EST 05/23/2013 7:49 AM EST Anup Hawkins MD HEMATOLOGY ORDERA BLES Performing Organization Address [facility] de Phone Number [facility] * CMV Antibody, IgM (05/23/2013 7:45 AM EST) CMV IgM Neg Neg [facility] Blood specimen (specimen) 05/23/2013 7:45 AM EST 05/24/2013 8:46 AM EST Narrative Resulting Agency Comment Spec In Lab Anup Hawkins MD IMMUNOLOGY ORDERA BLES [facility] * CMV Antibody, IgG (05/23/2013 7:45 AM EST) CMV IgG Neg Neg CERNER MILLENNIUM Blood specimen (specimen) 05/23/2013 7:45 AM EST 05/24/2013 8:46 AM EST Narrative Resulting Agency Comment Spec In Lab Anup Hawkins MD IMMUNOLOGY ORDERA BLES [facility] * (ABNORMAL) TSH (05/23/2013 7:45 AM EST) Thyroid Stimulating Hormone 8.48(H) 0.27 - 4.20 mcIU/mL CERNER MILLENNIUM Blood specimen (specimen) 05/23/2013 7:45 AM EST 05/23/2013 7:49 AM EST Narrative Resulting Agency Comment Spec In Lab Anup Hawkins MD CHEMISTRY ORDERAB LES Performing Organization Address [facility] Co de Phone Number CERSHANNAN HUERTAENNIUM * (ABNORMAL) Comprehensive metabolic panel (non-fasting) (05/23/2013 7:45 AM EST) Glucose 99 60 - 199 mg/dL CERNER MILLENNIUM Comment:Diabetes: >=200 mg/d L plus symptoms Blood Urea Nitrogen 50(H) 10 - 20 mg/dL CERNER MILLENNIUM Creatinine 2.00(H) 0.80 - 1.50 mg/dL CERNER MILLENNIUM Comment: Please note that the pediatric reference intervals supplied above were not validated at [facility]. Results from pediatric patients should be interpreted in conjunction to the patient's age, height and muscle mass. Sodium 140 135 - 145 mmol/L CERNER MILLENNIUM Potassium 4.5 3.5 - 5.0 mmol/L CERNER MILLENNIUM Comment: Please note: ??Patients with WBC >100,000 may have falsely elevated Potassium levels. ??For accurate Potassium quantification in these patients send serum separator tube (gold top) for subsequent determinations. ??Contact the Clinical Chemistry Laboratory if there are any questions. Chloride 108(H) 98 - 107 mmol/L CERNER MILLENNIUM Carbon Dioxide 24 22 - 31 mmol/L CERNER MILLENNIUM Anion Gap 8 5 - 15 mmol/L CERNER MILLENNIUM Calcium 9.1 8.5 - 10.5 mg/dL CERNER MILLENNIUM Protein, Total 6.7 6.4 - 8.3 gm/dL CERNER MILLENNIUM Albumin 4.5 3.2 - 5.2 gm/dL CERNER MILLENNIUM Aspartate Aminotransferase 22 0 - 39 unit/L CERNER MILLENNIUM Alanine Aminotransferase 15 0 - 55 unit/L CERNER MILLENNIUM Alkaline Phosphatase 91 40 - 120 unit/L CERNER MILLENNIUM Bilirubin, Total 0.4 0.2 - 1.3 mg/dL CERNER MILLENNIUM Bilirubin, Direct 0.1 0.0 - 0.3 mg/dL CERNER MILLENNIUM Est Glomerular Filtration Rate 35(L) >=60 CERNER MILLENNIUM Comment: This estimated GFR [...] internet browser. http://www.nkdep.nih.gov/lab-evaluation.shtml http://www.kidney.org/professionals/ Blood specimen (specimen) 05/23/2013 7:45 AM EST 05/23/2013 7:49 AM EST Narrative Resulting Agency Comment Spec In Lab Anup Hawkins MD CHEMISTRY ORDERAB LES CERSHANNAN MILLENNIUM * Magnesium (05/23/2013 7:45 AM EST) Magnesium 0.73 0.69 - 1.07 mmol/L CERNER MILLENNIUM Blood specimen (specimen) 05/23/2013 7:45 AM EST 05/23/2013 7:49 AM EST Narrative Resulting Agency Comment Spec In Lab Anup Hawkins MD CHEMISTRY ORDERAB LES CERNER MILLENNIUM * Phosphorus (05/23/2013 7:45 AM EST) Phosphorus 3.4 2.5 - 4.5 mg/dL CERNER MILLENNIUM Blood specimen (specimen) 05/23/2013 7:45 AM EST 05/23/2013 7:49 AM EST Narrative Resulting Agency Comment Spec In Lab Anup Hawkins MD CHEMISTRY ORDERAB LES Performing Organization Address [facility] Co de Phone Number [facility] * Uric acid (05/23/2013 7:45 AM EST) Uric Acid 5.3 3.5 - 8.5 mg/dL [facility] Blood specimen (specimen) 05/23/2013 7:45 AM EST 05/23/2013 7:49 AM EST Narrative Resulting Agency Comment Spec In Lab Anup Hawkins MD CHEMISTRY ORDERAB LES Performing Organization Address [facility] Co de Phone Number [facility] * Tacrolimus level (05/23/2013 7:45 AM EST) Tacrolimus 3.6 ng/mL CERNER MILLENNIUM Comment:Trough therapeutic: 5-15 ng/mL Blood specimen (specimen) 05/23/2013 7:45 AM EST 05/23/2013 11:57 AM EST Narrative Resulting Agency Comment Spec In Lab Anup Hawkins MD CHEMISTRY ORDERAB LES [facility] * Reticulocyte Count (05/23/2013 7:45 AM EST) Reticulocyte % 0.8 0.5 - 2.4 % CERNER MILLENNIUM Retic Abs # 0.030 0.027 - 0.095 x10(6)/mcL CERNER MILLENNIUM Immature Retic% 6.0 2.3 - 15.9 % CERNER MILLENNIUM Reticulated Hgb 33.8 28.5 - 38.9 pg CERNER MILLENNIUM Immature Plt % 2.2 0.0 - 7.4 % CERNER MILLENNIUM Blood specimen (specimen) 05/23/2013 7:45 AM EST 05/23/2013 7:49 AM EST Narrative Resulting Agency Comment Spec In Lab Anup Hawkins MD HEMATOLOGY ORDERA BLES CERNER BRADLEYENNIUM * (ABNORMAL) CBC (with Diff) (05/23/2013 7:45 AM EST) White Blood Cell 6.0 4.0 - 10.0 x10(3)/mc L CERNER MILLENNIUM Red Blood Cell 3.49(L) 4.63 - 6.08 x10(6)/mc L CERNER MILLENNIUM Hemoglobin 10.2(L) 13.7 - 17.5 gm/dL CERNER MILLENNIUM Hematocrit 31.8(L) 40.0 - 51.0 % CERNER MILLENNIUM Mean Cell Volume 91.1 79.0 - 92.0 fL CERNER MILLENNIUM Mean Cell Hemoglobin 29.2 25.6 - 32.2 pg CERNER MILLENNIUM Mean Cell Hemoglobin Concentration 32.1 32.0 - 36.5 gm/dL CERNER MILLENNIUM Platelet 191 145 - 370 x10(3)/mc L CERNER MILLENNIUM RDW Standard Deviation 44.1 35.0 - 46.0 fL CERNER MILLENNIUM RDW coefficient of variation 13.2 10.9 - 14.4 % CERNER MILLENNIUM Mean Platelet Volume 9.9 9.0 - 12.0 fL CERNER MILLENNIUM Blood specimen (specimen) 05/23/2013 7:45 AM EST 05/23/2013 7:49 AM EST Narrative Resulting Agency Comment Spec In Lab Anup Hawkins MD HEMATOLOGY ORDERA BLES CERSHANNAN SIMONIUM * Cholesterol, total (05/23/2013 7:45 AM EST) Cholesterol, Total 111 <=199 mg/dL CERNER MILLENNIUM Comment: Recommendations of the NCEP Adult Treatment Panel for the following risk cutoff thresholds for the [place] population: Desirable: <200 mg/dL Borderline High: 200-239 mg/dL High: > or = 240 mg/dL Blood specimen (specimen) 05/23/2013 7:45 AM EST 05/23/2013 7:49 AM EST Narrative Resulting Agency Comment Spec In Lab Anup Hawkins MD CHEMISTRY ORDERAB LES Performing Organization Address [facility] de Phone Number BUSHRA SIMONIUM * (ABNORMAL) Prothrombin Time (05/23/2013 7:45 AM EST) Prothrombin Time 24.9(H) 12.0 - 15.0 sec CERNER MILLENNIUM Comment: [facility] Transfusion Committee Guidelines: INR less than 2.0, PTT less than OR equal to 43.5 seconds, or Fibrinogen greater than or equal to 100 mg/dl indicate adequate procoagulant activity for hemostasis in patients without underlying bleeding disorders. International Normalization Ratio 2.2(H) 0.9 - 1.1 CERNER MILLENNIUM Blood specimen (specimen) 05/23/2013 7:45 AM EST 05/23/2013 7:49 AM EST Narrative Resulting Agency Comment Spec In Lab Anup Hawkins MD HEMATOLOGY ORDERA BLES Performing Organization Address [facility] Phone Number [facility] * Vitamin B12 (05/23/2013 7:45 AM EST) Vitamin B12 381 207 - 974 pg/mL CERNER MILLENNIUM Blood specimen (specimen) 05/23/2013 7:45 AM EST 05/23/2013 7:49 AM EST Narrative Resulting Agency Comment Spec In Lab Anup Hawkins MD CHEMISTRY ORDERAB LES Performing Organization Address [facility] Co de Phone Number [facility] * (ABNORMAL) Iron and TIBC (05/23/2013 7:45 AM EST) Iron 91 45 - 160 mcg/dL CERNER MILLENNIUM TIBC 245(L) 250 - 450 mcg/dL CERNER MILLENNIUM Iron Saturation 37 20 - 50 % CERN ER MILLENNIUM Blood specimen (specimen) 05/23/2013 7:45 AM EST 05/23/2013 7:49 AM EST Narrative Resulting Agency Comment Spec In Lab Anup Hawkins MD CHEMISTRY ORDERAB LES Performing Organization Address [facility] Co de Phone Number CERNER MILLENNIUM * Folate, serum (05/23/2013 7:45 AM EST) Folate 12.9 4.6 - 34.8 ng/mL CERNER MILLENNIUM Blood specimen (specimen) 05/23/2013 7:45 AM EST 05/23/2013 7:49 AM EST Narrative Resulting Agency Comment Spec In Lab Anup Hawkins MD CHEMISTRY ORDERAB LES Performing Organization Address [facility] de Phone Number CERNER MILLENNIUM * Ferritin (05/23/2013 7:45 AM EST) Ferritin 275 30 - 400 ng/mL CERNER MILLENNIUM Comment: Pediatric reference ranges not verified at [facility], interpret with caution. Reference ranges for females greater than 50 years of age approach values for men, i.e., 30-400 ng/mL. Blood specimen (specimen) 05/23/2013 7:45 AM EST 05/23/2013 7:49 AM EST Narrative Resulting Agency Comment Spec In Lab Anup Hawkins MD CHEMISTRY ORDERAB LES Performing Organization Address City/[facility]/ZIP Co de Phone Number [facility] documented in this encounter Visit Diagnoses Diagnosis Transplanted kidney Kidney replaced by transplant Need for prophylactic immunotherapy Health care maintenance Unspecified general medical examination documented in this encounter Care Teams Folder Inspector Relationship Specialty Start Date End Date Carroll Fuentes DO [address] [place] [address] PCP - General 09/23/11 10/20/22 documented as of this encounter
--- OUTSIDE RECORDS SUMMARY | 2024-04-22 11:15 | XMS_ITS | Encounter Summary ---
Author Organization [facility] Address [facility] [place] [address] Care Team Providers Care Culinary Manager Name Role Phone Carroll Fuentes DO Primary Care Provider [phone] Reason for Visit * Reason Onset Date Comments Medication Refill 06/15/2013 Encounter Details Date Type Department Care Team (Late st Contact Info) Description 06/15/2013 Refill [place] [address] Anup Hawkins MD [facility] [place] [address] High level of uric acid in blood [...] chemistry documented in this encounter Care Teams Culinary Manager Relationship Specialty Start Date End Date Carroll Fuentes DO [address] [place] [address] PCP - General 09/23/11 10/20/22 documented as of this encounter
--- OUTSIDE RECORDS SUMMARY | 2024-04-22 11:15 | XMS_ITS | Encounter Summary ---
Author Organization [facility] Address [facility] [place] [address] Care Team Providers Care Buying Agent Name Role Phone AlfredoCarroll allison Primary Care Provider [phone] Encounter Details Date Type Department Care Team (Latest Contact Info) Description 02/21/2013 8:24 PM EDT - 02/21/2013 11:59 PM EDT [place] [address] [facility] [place] [address] Discharge Disposition: Home Social History Tobacco Use [...] Date End Date allopurinol (ZYLOPRIM) 100 mg tabletIndications:gou t Take [...] Date/Time Associated Diagnosis Comments TACROLIMUS LEVEL Routine 02/21/2013 10:4 0 AM EDT documented in this encounter Results * Tacrolimus level (02/21/2013 10:40 AM EDT) Tacrolimus 3.5 ng/mL [facility] Comment:Trough therapeutic: 5-15 ng/mL Blood specimen (specimen) 02/21/2013 10:40 AM EDT 02/22/2013 8:07 AM EDT Narrative Resulting Agency Comment Spec In Lab Anup Hawkins MD CHEMISTRY ORDERAB LES Performing Organization Address City/State/[facility] Co sd Phone Number [facility] documented in this encounter Visit Diagnoses Not on filedocumented in this encounter Care Teams Buying Agent Relationship Specialty Start Date End Date Carroll Fuentes DO [address] [place] [address] PCP - General 09/23/11 10/20/22 documented as of this encounter
--- OUTSIDE RECORDS SUMMARY | 2024-04-22 11:15 | XMS_ITS | Encounter Summary ---
[place] [address] Care Team Providers Care Road Roller Operator Name Role Phone Carroll Fuentes DO Primary Care Provider Encounter Details Date Type Department Care Team (Late st Contact Info) Description 01/17/2013 Notes Only [place] [address] Isidoor Wild MSW Social History Tobacco Use Types [...] Progress Notes * Isidoro Wild MSW - 01/17/2013 4:05 PM EDT SW completed GAT[facility] for patient for more CellCept. documented in this encounter Plan of Treatment Not on file documented as of this encounter Visit Diagnoses Not on filedocumented in this encounter Care Teams Road Roller Operator Relationship Specialty Start Date End Date Carroll Fuentes DO [address] [place] [address] PCP - General 09/23/11 10/20/22 documented as of this encounter
--- OUTSIDE RECORDS SUMMARY | 2024-04-22 11:15 | XMS_ITS | Encounter Summary ---
Author Organization [facility] Address [facility] [place] [address] Care Team Providers Care Retail Pharmacist Name Role Phone Carroll Fuentes DO Primary Care Provider [phone] Reason for Visit * Reason Comments Skin Check MULTIPLE NEVI/VARIOU S SHAPES AND COLORS Encounter Details Date Type Department Care Team (Late st Contact Info) Description 04/18/2013 1:00 PM EDT Office Visit Dermatology at [facility] [address] [place] [address] CLINIC, DR LAXMI Dickerson, Damián Ventura MD [facility] [place] [address] [place] (actinic keratosis) (Primary Dx); Actinic skin damage; Rosacea; Multiple benign nevi Discharge Disposition: Home Social History Tobacco Use [...] as of this encounter Progress Notes * Mai Ross - 04/18/2013 12:58 PM EDT DERMATOLOGY CONSULT NOTE Date of service: 04/18/2013 Adama Ram : 1960 Provider: Damián Dickerson MD PROBLEM: The patient is seen at the request of Anup Hawkins MD, who instructed the patient to be seen for evaluation of multiple nevi. HPI Adama Ram is a 52 y.o. year old male. Presents to clinic today for a full skin exam. He has routine physicals by his PCP who noticed he had multiple nevi that were various sizes and shapes. None of which are bothersome to him. No other skin concerns today. PATIENT SCREENING QUESTIONS DO YOU HAVE A PACEMAKER OR DEFIRILLATOR?no DO YOU HAVE ARTIFICIAL JOINTS? no Less than 2 year old? DO YOU HAVE AN ARTIFICIAL HEART VALVE? no What blood thinner do you take? yes Do you take antibiotics before procedures?no ADR: Allergies Allergen Reactions ??? Benazepril Hcl ??? Hydrochlorothiazide ??? Pollen Extracts Sneezing/runny nose MEDS: Current Outpatient Prescriptions Medication Sig Dispense Refill ??? PROGRAF 1 mg capsule Take 1 capsule by mouth 2 times daily. KIDNEY TRANSPLANT V42.0. TRANSPLANTDATE; 11-26-02 60 capsule 0 ??? allopurinol (ZYLOPRIM) 100 mg tablet [...] 50 mg by mouth 3 times daily. ROS General: feeling well Skin: denies other skin complaints EXAM General: NAD, pleasant, cooperative Skin: A total body skin exam except for areas covered by underwear was performed. This includes examination of the skin of the face, ears, neck, chest, axillae, left and right upper and lower extremities, hands and feet, abdomen, and except the areas covered by underwear were not examined. Significant skin findings: A.Scattered red papules/pustules on central face with diffuse erythema and telangiectasia B.Multiple, 0.3-0.5cm, medium-brown, evenly-pigmented macules and papules, located on the back. Allwith regular pigment pattern on dermoscopy. No pigmented lesions suspicious for melanoma. C. 0.2-0.3cm scaly irregular pink papule(s), located on the left neck, left and right advent area ASSESSMENT/PLAN: A.Rosacea (Acne rosacea) I discussed this condition with the patient and explored therapeutic options. I recommended he apply metro cream .75% to the affected areas on face. B.Benign appearing nevi Patient reassured. Advised to monitor and observe skin for changes. Call if such occurs C. actinic keratosis/ possible early basal cell carcinoma or squamous cell carcinoma Patient is on immuno- suppressant medications I discussed this condition with the patient and explored therapeutic options. I recommended treating these areas with liquid nitrogen Procedure Note: Procedure: Destruction of lesion(s) with cryotherapy. Number: 3 Location: as above Discussed procedure and expectations including risks (including risk of hypopigmentation) and benefits. Verbal consent obtained. Frozen with LN2, 15-30 second thaw time, TWICE. There were no complications; the patient tolerated the procedure well. Post-procedure expectations and wound care were reviewed. The nature of sun-induced photo-aging and skin cancers is discussed. Sun avoidance, protective clothing, and the use of 30-SPF sunscreens is advised. Observe closely for skin damage/changes, and callif such occurs. follow up appointment in 2 months. Sooner should problems occur. I am documenting this encounter acting as the scribe for and in the presence of Dr. Dickerson: Mai Ross I performed the above scribed service and agree with the accuracy of the documentation in this encounter. Damián Dickerson MD Section of Dermatology [facility] documented in this encounter Plan of Treatment Not on file documented as of this encounter Visit Diagnoses Diagnosis AK (actinic keratosis)- Primary Actinic keratosis Actinic skin damage Other chronic dermatitis due to solar radiation Rosacea Multiple benign nevi Benign neoplasm of skin, site unspecified documented in this encounter Care Teams Retail Pharmacist Relationship Specialty Start Date End Date Carroll Fuentes DO [address] [place] [address] PCP - General 09/23/11 10/20/22 documented as of this encounter
--- OUTSIDE RECORDS SUMMARY | 2024-04-22 11:15 | XMS_ITS | Encounter Summary ---
Author Organization [facility] Address [facility] [place] [address] Care Team Providers Care Annual Giving Manager Name Role Phone Carroll Fuentes DO Primary Care Provider [phone] Reason for Visit * Reason Onset Date Comments Medication Refill 03/22/2013 Encounter Details Date Type Department Care Team (Late st Contact Info) Description 03/22/2013 Refill [place] [address] Anup Hawkins MD [facility] [place] [address] Transplanted kidney (Primary Dx) Social History Tobacco [...] transplant documented in this encounter Care Teams Annual Giving Manager Relationship Specialty Start Date End Date Carroll Fuentes DO [address] [place], [place] [address] PCP - General 09/23/11 10/20/22 documented as of this encounter
--- OUTSIDE RECORDS SUMMARY | 2024-04-22 11:15 | XMS_ITS | Encounter Summary ---
Author Organization [facility] [place] [address] Care Team Providers Care Lease Analyst Name Role Phone AlfredoCarroll allison Primary Care Provider Reason for Visit * Reason Onset Date Comments Medication Change/management 10/25/2012 Encounter Details Date Type Department Care Team (Late st Contact Info) Description 10/25/2012 Telephone [place] [address] Anastasia García, oxyacetylene torch operator Change/management Social History Tobacco Use Types Packs/Day Years [...] encounter Miscellaneous Notes * Telephone Encounter - Anastasia García - 10/28/2012 12:29 PM EDT Patient held his Prograf the day his labs and took it after. Patient is on Brand Name Prograf; 1mg capsules; currently taking 1 mg in the AM and 1 mg at bedtime. TEL: [phone] Attached Reports * Telephone Encounter - Anastasia García - 10/26/2012 8:58 AM EDT Called yesterday, left a message, called again today spoke with his mother, she states, your the one that called yesterday, well he's not here right now, but he did get your message, I'll have him call you today. * Telephone Encounter - Anastasia García - 10/25/2012 2:47 PM EDT Call made to patient's home, left message to call this office back. We are trying to clarify if patient taking his Prograf, what brand, is he missing any doses. documented in this encounter Plan of Treatment Not on file documented as of this encounter Visit Diagnoses Not on filedocumented in this encounter Care Teams Lease Analyst Relationship Specialty Start Date End Date Carroll Fuentes DO [address] [place] [address] PCP - General 09/23/11 10/20/22 documented as of this encounter
--- OUTSIDE RECORDS SUMMARY | 2024-04-22 11:15 | XMS_ITS | Encounter Summary ---
Author Organization [facility] Address [facility] Laura [place] [address] Care Team Providers Care Tube Rebuilder Name Role Phone AlfredoCarroll allison Primary Care Provider [phone] Encounter Details Date Type Department Care Team (Late st Contact Info) Description 05/23/2013 Refill Dermatology at [facility] [address] [place] [address] Damián Dickerson MD [facility] [place] [address] Social History Tobacco Use Types Packs/Day Years [...] * Telephone Encounter - Odalis Leon - 05/23/2013 12:05 PM EST SHIRAVALERIE PT Pt is currently taking warfarin; the doxycycline could increase the warfarin and cause increase chance of bleeding. Please call the pharmacy, Billie, ([facility]). Thanks Odalis documented in this encounter Plan of Treatment Not on file documented as of this encounter Visit Diagnoses Not on filedocumented in this encounter Care Teams Tube Rebuilder Relationship Specialty Start Date End Date Carroll Fuentes DO [address] [place] [address] PCP - General 09/23/11 10/20/22 documented as of this encounter
--- OUTSIDE RECORDS SUMMARY | 2024-04-22 11:15 | XMS_ITS | Encounter Summary ---
Author Organization [facility] [place] [address] Care Team Providers Care Fitness And Wellness Instructor Name Role Phone Carroll Fuentes DO Primary Care Provider [phone] Encounter Details Date Type Department Care Team (Late st Contact Info) Description 02/17/2013 Orders Only [place] [address] Camilo Ireland MD [facility] [place] [address] Social History Tobacco Use Types Packs/Day Years [...] on filedocumented in this encounter Care Teams Fitness And Wellness Instructor Relationship Specialty Start Date End Date Carroll Fuentes DO [address] [place] [address] PCP - General 09/23/11 10/20/22 documented as of this encounter
--- OUTSIDE RECORDS SUMMARY | 2024-04-22 11:15 | XMS_ITS | Encounter Summary ---
Author Organization [facility] Address [facility] [place] [address] Care Team Providers Care Repairer Engine Production Name Role Phone Carroll Fuentes DO Primary Care Provider [phone] Reason for Visit * Reason Comments Medication Refill Encounter Details Date Type Department Care Team (Late st Contact Info) Description 11/05/2012 Refill [place] [address] Anup Hawkins MD [facility] [place] [address] Social History Tobacco Use Types Packs/Day Years [...] on filedocumented in this encounter Care Teams Repairer Engine Production Relationship Specialty Start Date End Date Carroll Fuentes DO [address] [place] [address] PCP - General 09/23/11 10/20/22 documented as of this encounter
--- OUTSIDE RECORDS SUMMARY | 2024-04-22 11:15 | XMS_ITS | Encounter Summary ---
Author Organization [facility] Address [facility] [place] [address] Care Team Providers Care Gas Operations Superintendent Name Role Phone AlfredoCarroll allison Primary Care Provider [phone] Reason for Visit * Reason Onset Date Comments Elevated Blood Pressure 12/21/2012 Encounter Details Date Type Department Care Team (Late st Contact Info) Description 12/21/2012 Telephone [place] [address] Anastasia García RN Elevated Blood Pressure Social History Tobacco Use Types Packs/Day Years [...] * Telephone Encounter - Anastasia García - 12/21/2012 4:27 PM EDT Called patient to check what he has been getting for his home BP numbers, patient states, my numbers are much better, I've been getting about 120's/80's as an average, I had my labs drawn today, soyou should be getting those. I asked to call anytime if he has any concerns at all. documented in this encounter Plan of Treatment Not on file documented as of this encounter Visit Diagnoses Not on filedocumented in this encounter Care Teams Gas Operations Superintendent Relationship Specialty Start Date End Date Carroll Fuentes DO [address] [place] [address] PCP - General 09/23/11 10/20/22 documented as of this encounter
--- OUTSIDE RECORDS SUMMARY | 2024-04-22 11:15 | XMS_ITS | Encounter Summary ---
Author Organization [facility] Address [facility] [place] [address] Care Team Providers Care Pyrotechnics Press Tender Name Role Phone AlfredoCarroll allison Primary Care Provider [phone] Encounter Details Date Type Department Care Team (Latest Contact Info) Description 07/25/2013 11:[address] [facility] - 07/25/2013 11:[address] [facility] [place] [address] Anup Hawkins MD [facility] [place] [address] Discharge Disposition: Home Social History Tobacco Use [...] Start Date End Date PROGRAF 1 mg capsule take 1 capsule [...] DAILY NEEDED. 45 g 0 04/18/2013 11/28/2014 hydrALAZINE (APRESOLINE) 50 mg tabletIndications:HTN (hypertension) Take [...] on filedocumented in this encounter Care Teams Pyrotechnics Press Tender Relationship Specialty Start Date End Date Carroll Fuentes DO [address] [place] [address] PCP - General 09/23/11 10/20/22 documented as of this encounter
--- OUTSIDE RECORDS SUMMARY | 2024-04-22 11:15 | XMS_ITS | Encounter Summary ---
Author Organization [facility] Address [facility] [place] [address] Care Team Providers Care Title Searcher Name Role Phone AlfredoCarroll allison Primary Care Provider Encounter Details Date Type Department Care Team (Latest Contact Info) Description 12/21/2012 7:00 PM EDT - 12/21/2012 11:59 PM EDT Hospital [place] [address] Anup Hawkins MD [facility] [place] [address] Discharge Disposition: Home Social History Tobacco Use [...] Date/Time Associated Diagnosis Comments TACROLIMUS LEVEL Routine 12/21/2012 9:50 AM EDT documented in this encounter Results * Tacrolimus level (12/21/2012 9:50 AM EDT) Tacrolimus 3.2 ng/mL [facility] Comment:Trough therapeutic: 5-15 ng/mL Blood specimen (specimen) 12/21/2012 9:50 AM EDT 12/22/2012 8:14 AM EDT Narrative Resulting Agency Comment Spec In Lab Anup Hawkins MD CHEMISTRY ORDERAB LES Performing Organization Address City/State/[facility] Co de Phone Number [facility] documented in this encounter Visit Diagnoses Not on filedocumented in this encounter Care Teams Title Searcher Relationship Specialty Start Date End Date Carroll Fuentes DO [address] [place] [address] PCP - General 09/23/11 10/20/22 documented as of this encounter
--- OUTSIDE RECORDS SUMMARY | 2024-04-22 11:15 | XMS_ITS | Encounter Summary ---
Author Organization [facility] Address [facility] [place] [address] Care Team Providers Care Fishing Reel Assembler Name Role Phone AlfredoCarroll allison Primary Care Provider [phone] Encounter Details Date Type Department Care Team (Late st Contact Info) Description 07/25/2013 Orders Only [place] [address] Anup Hawkins MD [facility] [place] [address] Social History Tobacco Use Types Packs/Day Years [...] Date/Time Associated Diagnosis Comments TACROLIMUS LEVEL Routine 07/25/2013 8:00 PM EST documented in this encounter Results * Tacrolimus level (07/25/2013 8:00 PM EST) Tacrolimus <3.0 ng/mL [facility] Comment:Trough therapeutic: 5-15 ng/mL Blood specimen (specimen) 07/25/2013 8:00 PM EST 07/26/2013 8:06 AM EST Narrative Resulting Agency Comment Spec In Lab Anup Hawkins MD CHEMISTRY ORDERAB LES Performing Organization Address City/State/[facility] Co de Phone Number [facility] documented in this encounter Visit Diagnoses Not on filedocumented in this encounter Care Teams Fishing Reel Assembler Relationship Specialty Start Date End Date Carroll Fuentes DO [address] [place] [address] PCP - General 09/23/11 10/20/22 documented as of this encounter
--- OUTSIDE RECORDS SUMMARY | 2024-04-22 11:15 | XMS_ITS | Encounter Summary ---
Author Organization [facility] [place] [address] Care Team Providers Care Therapist Radiation Name Role Phone AlfredoCarroll allison Primary Care Provider [phone] Encounter Details Date Type Department Care Team (Latest Contact Info) Description 02/27/2013 External Results [place] [address] Erika Sweeney Transplanted kidney; Need for prophylactic [...] Procedure Name Priority Date/Time Associated Diagnosis Comments [facility] TRANSPLANT FOLLOW UP LABS EXTERNAL RESULTS PANEL Routine 02/21/2013 Transplanted kidney Need for prophylactic immunotherapy documented in this encounter Results * (ABNORMAL) Transplant: Follow up lab Panel (02/21/2013) White Blood Cell 4.42 Hemoglobin 10.0(A) 13.5 - 17.5 Hematocrit 32.2(A) 41.0 - 53.0 Amylase 25 - 110 Lipase 0 - 53 Blood Urea Nitrogen Creatinine 2.1 Tacrolimus 3.5 ABORH Type Anup Hawkins MD CHEMISTRY ORDERAB LES documented in this encounter Visit Diagnoses Diagnosis Transplanted kidney Kidney replaced by transplant Need for prophylactic immunotherapy documented in this encounter Care Teams Therapist Radiation Relationship Specialty Start Date End Date Carroll Fuentes DO [address] [place] [address] PCP - General 09/23/11 10/20/22 documented as of this encounter
--- OUTSIDE RECORDS SUMMARY | 2024-04-22 11:15 | XMS_ITS | Encounter Summary ---
Author Organization [facility] Address [facility] [place] [address] Care Team Providers Care [employer] Flatbed Truck Driver Name Role Phone Carroll Fuentes DO Primary Care Provider [phone] Reason for Visit * Reason Onset Date Comments Medication Refill 11/21/2012 Encounter Details Date Type Department Care Team (Late st Contact Info) Description 11/21/2012 [place] [address] Alfonzo Miles MD [facility] [place] [address] Social History Tobacco Use Types Packs/Day Years [...] encounter Miscellaneous Notes * Telephone Encounter - CarlosRishabhfaye Jefferson - 11/21/2012 4:02 PM EDT Patient called for prescription refill for: Name of Med: levetiracetam Generic is ok with patient Strength of Pills: 1000 mg Dosing Directions: take 1 tablet twice daily 30 or 90 Day: [facility] Last Appointment: Next Appointment:11/22/2012 documented in this encounter Plan of Treatment Not on file documented as of this encounter Visit Diagnoses Not on filedocumented in this encounter Care Teams [employer] Flatbed Truck Driver Relationship Specialty Start Date End Date Carroll Fuentes DO [address] [place] [address] PCP - General 09/23/11 10/20/22 documented as of this encounter
--- OUTSIDE RECORDS SUMMARY | 2024-04-22 11:15 | XMS_ITS | Encounter Summary ---
Author Organization [facility] Address [place] [address] Care Team Providers Care Telecasting Engineer Name Role Phone AlfredoCarroll allison Primary Care Provider Encounter Details Date Type Department Care Team (Latest Contact Info) Description 06/22/2013 8:39 PM EST - 06/22/2013 11:59 PM [facility] [[email or web address] [place] [address] Anup Hawkins MD [facility] [place] [address] Discharge Disposition: Home Social History Tobacco Use [...] times daily. 60 capsule 0 05/23/2013 11/22/2013 PROGRAF 1 mg capsuleIndications:Tr ansplanted kidney Take 1 capsule by mouth 2 times daily. KIDNEY TRANSPLANT V42.0. TRANSPLANT DATE; 11-26-02 180 capsule 3 05/15/2013 07/03/2013 metroNIDAZOLE (METROCREAM) 0.75 % creamIndications:[place] cea APPLY [...] Associated Diagnosis Comments LAVENDER TUBE HOLD Routine 06/22/2013 9: 23 AM EST TACROLIMUS LEVEL Routine 06/22/2013 9:23 AM EST documented in this encounter Results * Lavender Tube HOLD (06/22/2013 9:23 AM EST) Lavender Hold Sample in lab. CERNER MILLENNIUM Blood specimen (specimen) 06/22/2013 9:23 AM EST 06/22/2013 8:44 PM EST Anup Hawkins MD HEMATOLOGY ORDERA BLES Performing Organization Address City/[facility] Co de Phone Number [facility] * Tacrolimus level (06/22/2013 9:23 AM EST) [facility] 3[facility]6 ng/[facility] Comment:Trough therapeutic: 5-15 ng/mL Blood specimen (specimen) 06/22/2013 9:23 AM EST 06/23/2013 8:23 AM EST Narrative Resulting Agency Comment Spec In Lab Anup Hawkins MD CHEMISTRY ORDERAB LES Performing Organization Address [facility] Co de Phone Number [facility] documented in this encounter Visit Diagnoses Not on filedocumented in this encounter Care Teams Telecasting Engineer Relationship Specialty Start Date End Date Carroll Fuentes DO [address] [place] [address] PCP - General 09/23/11 10/20/22 documented as of this encounter
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
--- OUTSIDE RECORDS SUMMARY | 2024-04-22 11:15 | XMS_ITS | Encounter Summary ---
Author Organization [facility] [place] [address] Care Team Providers Care Manager Of Radiology Name Role Phone Carroll Fuentes DO Primary Care Provider Reason for Visit * Reason Comments Medication Refill Encounter Details Date Type Department Care Team (Late st Contact Info) Description 07/03/2013 [place] [address] Anup Hawkins MD [facility] [place] [address] Social History Tobacco Use Types Packs/Day Years [...] filedocumented in this encounter Care Teams Manager Of Radiology Relationship Specialty Start Date End Date Carroll Fuentes DO [address] [place] [address] PCP - General 09/23/11 10/20/22 documented as of this encounter
--- OUTSIDE RECORDS SUMMARY | 2024-04-22 11:15 | XMS_ITS | Encounter Summary ---
Author Organization [facility] Address [facility] [place] [address] Care Team Providers Care Tube Blower Name Role Phone Carroll Fuentes DO Primary Care Provider [phone] Reason for Visit * Reason Comments Medication Refill Encounter Details Date Type Department Care Team (Late st Contact Info) Description 01/29/2013 Refill Solid [place] [address] Anup Hawkins MD [facility] [place] [address] Social History Tobacco Use Types Packs/Day Years [...] filedocumented in this encounter Care Teams Tube Blower Relationship Specialty Start Date End Date Carroll Fuentes DO [address] [place] [address] PCP - General 09/23/11 10/20/22 documented as of this encounter
--- OUTSIDE RECORDS SUMMARY | 2024-04-22 11:16 | XMS_ITS | Encounter Summary ---
Author Organization [facility] Address [facility] [place] [address] Care Team Providers Care Sales Ledger Clerk Name Role Phone AlfredoCarroll allison Primary Care Provider [phone] Encounter Details Date Type Department Care Team (Latest Contact Info) Description 04/25/2012 7:11 PM EDT - 04/25/2012 11:59 PM EDT Hospital Encounter [place] [address] Anup Hawkins MD [facility] [place] [address] Discharge Disposition: Home Social History Tobacco Use [...] Sig Dispensed Refills Start Date End Date OXYcodone (ROXICODONE) 5 mg immediate release tablet Take 1 tablet by mouth every 4 hours as needed for Pain. 30 tablet 0 04/19/2012 04/29/2012 leveTIRAcetam (KEPPRA) 1,000 mg tablet take 1 tablet by mouth twice a day 60 tablet 1 04/18/2012 06/24/2012 allopurinol (ZYLOPRIM) 100 mg tabletIndications:gou t Take [...] mouth daily. 90 capsule 3 02/15/2012 01/29/2013 hydrALAZINE (APRESOLINE) 50 mg tabletIndications:HTN (hypertension) Take 1 tablet by mouth 2 times daily. 60 tablet 12 01/22/2012 06/29/2012 PROGRAF 1 mg capsuleIndications:Tr ansplanted kidney Take 1 capsule by mouth 2 times daily. KIDNEY TRANSPLANT V42.0. TRANSPLANT DATE; 11-26-02 60 capsule 11 01/06/2012 03/22/2013 levothyroxine (SYNTHROID) 88 mcg tablet Take 1 tablet by mouth daily. 30 tablet 12 09/23/2011 09/22/2012 CELLCEPT 250 mg capsuleIndications:S/ P kidney transplant [...] Date/Time Associated Diagnosis Comments TACROLIMUS LEVEL Routine 04/25/2012 7:19 PM EDT documented in this encounter Results * TACROLIMUS LEVEL (04/25/2012 7:19 PM EDT) Tacrolimus 3.9 ng/mL [facility] Comment:Trough therapeutic: 5-15 ng/mL Blood specimen (specimen) 04/25/2012 7:19 PM EDT 04/26/2012 8:12 AM EDT Narrative Resulting Agency Comment Spec In Lab Anup Hawkins MD CHEMISTRY ORDERAB LES Performing Organization Address City/State/[facility] Co de Phone Number [facility] documented in this encounter Visit Diagnoses Not on filedocumented in this encounter Care Teams Sales Ledger Clerk Relationship Specialty Start Date End Date Carroll Fuentes DO [address] [place] [address] [address] [place] [address] PCP - General 09/23/11 10/20/22 documented as of this encounter
--- OUTSIDE RECORDS SUMMARY | 2024-04-22 11:16 | XMS_ITS | Encounter Summary ---
Author Organization [facility] Address [facility] [place] [address] Care Team Providers Care Workforce Services Representative Name Role Phone AlfredoCarroll allison Primary Care Provider Encounter Details Date Type Department Care Team (Latest Contact Info) Description 07/26/2012 6:55 PM EST - 07/26/2012 11:59 PM [facility] Hospital [place] [address] Anup Hawkins MD [facility] [place] [address] Discharge Disposition: Home Social History Tobacco Use [...] Date hydrALAZINE (APRESOLINE) 50 mg tabletIndications:HTN (hypertension) take 1 tablet by mouth twice a day 60 tablet 7 06/29/2012 02/07/2013 leveTIRAcetam (KEPPRA) 1,000 mg tabletIndications:Epi lepsy Take 1 tablet by mouth 2 times daily. 60 tablet 2 06/24/2012 09/16/2012 allopurinol (ZYLOPRIM) 100 mg tabletIndications:gou t Take [...] Date/Time Associated Diagnosis Comments TACROLIMUS LEVEL Routine 07/26/2012 7:12 PM EST documented in this encounter Results * Tacrolimus level (07/26/2012 7:12 PM EST) Tacrolimus <3.0 ng/mL [facility] Comment:Trough therapeutic: 5-15 ng/mL Blood specimen (specimen) 07/26/2012 7:12 PM EST 07/27/2012 8:08 AM EST Narrative Resulting Agency Comment Spec In Lab Anup Hawkins MD CHEMISTRY ORDERAB LES [facility] documented in this encounter Visit Diagnoses Not on filedocumented in this encounter Care Teams Workforce Services Representative Relationship Specialty Start Date End Date Carroll Fuentes DO [address] [place] [address] PCP - General 09/23/11 10/20/22 documented as of this encounter
--- OUTSIDE RECORDS SUMMARY | 2024-04-22 11:16 | XMS_ITS | Encounter Summary ---
Author Organization [facility] [address] Care Team Providers Care Wire Drawing Die Maker Name Role Phone AlfredoCarroll allison Primary Care Provider [phone] Encounter Details Date Type Department Care Team (Latest Contact Info) Description 09/23/2012 External Results [place] [address] Busterelena Erika Quin Transplanted kidney; Need for prophylactic immunotherapy Social [...] Procedure Name Priority Date/Time Associated Diagnosis Comments [facility] TRANSPLANT FOLLOW UP LABS EXTERNAL RESULTS PANEL Routine 09/20/2012 Transplanted kidney Need for prophylactic immunotherapy documented in this encounter Results * Transplant: Follow up lab request - EXTERNAL collections (09/20/2012) White Blood Cell Hemoglobin 13.5 - 17.5 Hematocrit 41.0 - 53.0 Amylase 25 - 110 Lipase 0 - 53 Blood Urea Nitrogen Creatinine Tacrolimus Anup Hawkins MD CHEMISTRY ORDERAB LES documented in this encounter Visit Diagnoses Diagnosis Transplanted kidney Kidney replaced by transplant Need for prophylactic immunotherapy documented in this encounter Care Teams Wire Drawing Die Maker Relationship Specialty Start Date End Date Carroll Fuentes DO [address] [facility] [address] [place] [address] PCP - General 09/23/11 10/20/22 documented as of this encounter
--- OUTSIDE RECORDS SUMMARY | 2024-04-22 11:16 | XMS_ITS | Encounter Summary ---
Author Organization [facility] Address [facility] [place] [address] Care Team Providers Care Supervisor Vendor Quality Name Role Phone AlfredoCarroll allison Primary Care Provider [phone] Encounter Details Date Type Department Care Team (Late st Contact Info) Description 04/19/2012 2:21 PM EDT - 04/19/2012 4:19 PM EDT Surgery [place] [phone] Sabirna Sanchez MD [facility] [place] [address] EXC MALIGNANT LESION, MICHAEL > 4.0CM, TRUNK (WRVU 5.02) Social History Tobacco Use Types Packs/Day Years [...] Sign Reading Time Taken Comments Blood Pressure 122/82 04/19/2012 4:16 PM EDT Pulse 53 04/19/2012 4:16 PM EDT Temperature 36.2 ??C (97.2 ??F) 04/19/2012 4:00 PM ED T Respiratory Rate 16 04/19/2012 4:16 PM EDT Oxygen Saturation 97% 04/19/2012 4:16 PM EDT Inhaled Oxygen Concentration - - Weight 88.5 kg (195 lb) 04/19/2012 1:32 PM EDT Height 182.9 cm (6') 04/19/2012 1:32 PM EDT Body Mass Index 26.45 04/19/2012 1:32 PM EDT documented in this encounter Discharge Instructions * Discharge Instructions* Yeni Macias RN - 04/19/2012 4:18 PM EDT POST ANESTHESIA INSTRUCTIONS Go home, [...] away in 12-24 hours. * Patient Instructions* Donn Ruvalcaba MD - 04/19/2012 1:33 PM EDT OK to remove dressing and shower in 48 hours. Elevate arm as much as possible until follow-up. No heavy lifting. documented in this encounter Medications at Time [...] as of this encounter H&P Notes * Donn Ruvalcaba MD - 04/19/2012 1:10 PM EDT 24 hour interval history and physical exam: Christy Ambrose's condition unchanged since H&P originally performed documented in this encounter Miscellaneous Notes * Miscellaneous - Provider, Scanning - 04/19/2012 10:10 PM EDT * Op Note - Sabrina Sanchez MD - 04/19/2012 5:02 PM EDT [facility] Operative Note Patient Name: Christy Ambrose : [id number] MR#: [id number] Case Date: 04/19/2012 Surgeon: Surgeon(s) and Role: * SABRINA SANCHEZ MD - Primary * DONN RUVALCABA MD - Resident-Surgeon Huber * MALINDA WEBB APRN Preoperative diagnosis: BCC right shoulder Postoperative diagnosis: BCC right shoulder Procedure(s): REPAIR INTERMEDIATE WOUND, (NO HANDS OR FEET) 2.6 TO 7.5CM, UPPER EXTREMITY EXC MALIGNANT LESION, MICHAEL > 4.0CM, TRUNK General Estimated Blood Loss: 5 ml Drains: none Disposition: awakened from anesthesia, extubated and taken to the recovery room in a stable condition, having suffered no apparent untoward event. Condition: doing well without problems (Please see the Surgical Encounter Summary for any Implant and Specimen details pertinent to this patient.) HPI/Surgical Indications: 51 year old male on immunosuppressive therapy for a renal transplant witha recently diagnosed right shoulder BCC. We offered him excision and reconstruction with intraoperative frozen section analysis as well. Procedure Description: Date of Surgery: April 19, 2012 The patient was identified and marked in the preoperative holding area and brought to the operating room. He was placed on the operating room table in the supine position. Anesthetic monitors and SCDs were applied. After induction of general anesthesia, the patient was intubated orally and maintained on general anesthesia throughout the remainder of the case. The patient was positioned in the lateral decubitus position, and an axillary roll was placed. The right neck and shoulder and right thigh were prepped and draped sterilely. The operation began by outlining a border around the clinically apparent basal cell carcinoma of the right shoulder. This area was infiltrated with 0.25% Marcaine with 1:200,000 epinephrine. After allowing adequate time for vasoconstrictive effect, the lesion was excised in an ellipse at the level of the subcutaneous fat. The excision length was 5 cm. We marked this with a short stitch anterior and a long stitch lateral and sent it for pathologic frozen section analysis. We also took sales representative groceries sections around the existing margin at the 2, 4, 7, and 10 o'clock positions. We inked the old margin. The frozen section results revealed no evidence of tumor at any of the frozen section specimen sites. The wound was then irrigated copiously. Hemostasis was achieved with electrocautery. Intermediate repair was performed for a total of 5.5 cm with 2-0 Vicryl suture for deep dermal sutures and 3-0 Monocryl for running subcuticular closure of the skin. The skin was then dermabonded and a surgical dressing applied. The drapes were taken down. The patient was weaned from anesthesia and extubated in the operating room. He was transitioned to an OR stretcher and transported to the post-anesthesia care unit where he was reported stable and breathing spontaneously. There were no apparent complications to the procedure. The patient tolerated the procedure well. CPT codes for the procedure were 53958 and 71558. * OR Attestation - Sabrina Sanchez MD - 04/19/2012 3:53 PM EDT Attestation: Case Date: 04/19/2012 I was present and I participated during the entire procedure (does not need to include opening and closing). SABRINA SANCHEZ MD 04/19/2012 * Brief Op Note - Sabrina Sanchez MD - 04/19/2012 3:52 PM EDT Brief Operative Note Patient Name: Christy Ambrose : [id number] MR#: [id number] Case Date: 04/19/2012 Surgeon: Surgeon(s) and Role: * SABRINA SANCHEZ MD - Primary * DONN RUVALCABA MD - Resident-Surgeon Huber * MALINDA WEBB APRN Preoperative diagnosis: BCC right shoulder Postoperative diagnosis: BCC right shoulder Procedure(s): REPAIR INTERMEDIATE WOUND, (NO HANDS OR FEET) 2.6 TO 7.5CM, UPPER EXTREMITY EXC MALIGNANT LESION, MICHAEL > 4.0CM, TRUNK Anesthesia: General Findings: routine Complications: none Fluids: 800 ml crystalloid Estimated Blood Loss: 5 ml Drains: none Disposition: awakened from anesthesia, extubated and taken to the recovery room in a stable condition, having suffered no apparent untoward event. Condition: doing well without problems (Please see the Surgical Encounter Summary for any Implant and Specimen details pertinent to this patient.) * Miscellaneous - Provider, Scanning - 04/19/2012 2:24 PM EDT documented in this encounter Plan of Treatment Not on file documented as of this encounter Procedures Procedure Name Priority Date/Time Associated Diagnosis Comments REPAIR INTERMEDIATE WOUND, 2.6 TO 7.5CM, UPPER EXTREMITY Routine 04/20/2012 8:25 AM EDT EXC MALIGNANT LESION, MICHAEL > 4.0CM, TRUNK Routine 04/20/2012 8:25 AM EDT SPECIMEN TO PATHOLOGY STAT 04/19/2012 3:14 PM EDT SPECIMEN TO PATHOLOGY STAT 04/19/2012 3:14 PM EDT SPECIMEN TO PATHOLOGY STAT 04/19/2012 3:14 PM EDT SPECIMEN TO PATHOLOGY STAT 04/19/2012 3:14 PM EDT FROZEN SECTION REPORT Routine 04/19/2012 3:07 PM EDT SURGICAL PATHOLOGY REPORT Routine 04/19/2012 3:07 PM EDT SPECIMEN TO PATHOLOGY STAT 04/19/2012 3:04 PM EDT EXC MALIGNANT LESION, MICHAEL > 4.0CM, TRUNK (WRVU 5.02) 04/19/2012 2:10 PM EDT BCC right shoulder REPAIR INTERMEDIATE WOUND, (NO HANDS OR FEET) 2.6 TO 7.5CM, UPPER EXTREMITY (WRVU 2.52) 04/19/2012 2:10 PM EDT BCC right shoulder PROTHROMBIN TIME STAT 04/19/2012 1:14 PM EDT Left leg DVT documented in this encounter Results * Specimen to Pathology (surgical or derm) (04/19/2012 3:14 PM EDT) AP Specimen 04/19/2012 3:14 PM EDT 04/19/2012 3:14 PM EDT Narrative B[facility]RA DOYLE - 04/19/2012 3:14 PM EDT Specimen requisition ordered. ??Separate Pathology report to follow Sabrina Sanchez MD PATHOLOGY/CYTOLOGY O UMESH Performing Organization Address [facility] de Phone Number BUSHRA DOYLE * Specimen to Pathology (surgical or derm) (04/19/2012 3:14 PM EDT) AP Specimen 04/19/2012 3:14 PM EDT 04/19/2012 3:14 PM EDT Narrative BUSHRA DOYLE - 04/19/2012 3:14 PM EDT Specimen requisition ordered. ??Separate Pathology report to follow Sabrina Sanchez MD PATHOLOGY/CYTOLOGY O UMESH Performing Organization Address [facility] de Phone Number [facility] * Specimen to Pathology (surgical or derm) (04/19/2012 3:14 PM EDT) AP Specimen 04/19/2012 3:14 PM EDT 04/19/2012 3:14 PM EDT Narrative BUSHRA DOYLE - 04/19/2012 3:14 PM EDT Specimen requisition ordered. ??Separate Pathology report to follow Sabrina Sanchez MD PATHOLOGY/CYTOLOGY O UMESH Performing Organization Address [facility] de Phone Number [facility] * Specimen to Pathology (surgical or derm) (04/19/2012 3:14 PM EDT) AP Specimen 04/19/2012 3:14 PM EDT 04/19/2012 3:14 PM EDT Narrative BUSHRA DOYLE - 04/19/2012 3:14 PM EDT Specimen requisition ordered. ??Separate Pathology report to follow Sabrina Sanchez MD PATHOLOGY/CYTOLOGY O UMESH [facility] * SURGICAL PATHOLOGY REPORT (04/19/2012 3:07 PM EDT) Surgical Pathology Report ? [facility] ? Provider: ?? SABRINA SANCHEZ ? Pt. Name: ?? CHRISTY AMBROSE ? Acc #: ?[id number] ? Pt. ? Col Date: ?? 04/19/2012 ? /Sex: ?1960,(51 years),Male ? Rec Date: ?? 04/19/2012 ? LOC: ?SDA ? SURGICAL PATHOLOGY ? ---Pathologic Diagnosis--- ? A - Skin, right shoulder, excision: ? Basal cell carcinoma; the margins are clear in these sections (see ? Comment). ? B - Skin, right shoulder, 2 o'clock ink old margin: ? There is no evidence of basal cell carcinoma in these sections. ? C - Skin, right shoulder, 4 o'clock for frozen section: ? There is no evidence of basal cell carcinoma in these sections. ? D - Skin, right shoulder, 7 o'clock for frozen section: ? There is no evidence of basal cell carcinoma in these sections. ? E - Skin, right shoulder, 10 o'clock for frozen section: ? There is no evidence of basal cell carcinoma in these sections. ? CR-0 ? 04/21/12 ? AJE ? 04/22/12 Verified by: ? Sukumar Keane MD ? Dermatopathologist ? (Electronic Signature) ? The attending pathologist whose signature appears on this report has ? reviewed all diagnostic slides and has edited the gross and/or ? microscopic portion of the report in rendering the final pathologic ? diagnosis. ? ---Comment--- ? A - In addition, there is an associated intradermal melanocytic nevus and ? intraepidermal proliferation of solitary melanocytes occurring in ? association with a dermal melanocytic nevus. ??The intraepidermal ? proliferation of solitary melanocytes is occurring adjacent to a broad zone ? of regression. ??Nonetheless, a superficial component of the basal cell ? carcinoma is also in continuity with this region of regression. ??Thus, it ? is uncertain whether the region of regression represents a partial ? regressed superficial component of the basal cell carcinoma or a regressed ? component of a melanocytic lesion. ??In any event, the melanocytic ? proliferation and zone of regression is completely excised in these ? sections. ? [facility] ? Provider: ?? SABRINA SANCHEZ ? Pt. Name: ?? CHRISTY AMBROSE ? Acc #: ?[id number] ? Pt. ? Col Date: ?? 04/19/2012 ? /Sex: ?1960,(51 years),Male ? Rec Date: ?? 04/19/2012 ? LOC: ?SDA ? SURGICAL PATHOLOGY ? ---Frozen Section Diagnosis--- ? A - Right shoulder BCC short stitch anterior long stitch lateral, history ? of immunosuppression - frozen section at 12,3,6, and 9 o'clock. Short ? stitch at 6 o'clock and long stitch 9 o'clock for frozen section: ? Basal cell carcinoma; The 3 o'clock and 9 o'clock margin are negative for ? carcinoma. ? B - Right shoulder BCC, 2 o'clock ink old margin for frozen section: ? No basal cell carcinoma is identified in these sections. ? C - Right shoulder BCC, 4 o'clock for frozen section: ? No basal cell carcinoma is identified in these sections. ? D - Right shoulder BCC 7 o'clock for frozen section: ? No basal cell carcinoma is identified in these sections. ? E - Right shoulder BCC, 10 o'clock for frozen section: ? No basal cell carcinoma is identified in these sections. ? ---Microscopic Description--- ? Slides reviewed, microscopic description not recorded. ? ---Gross Description--- ? A - Labeled/Fixative: Right shoulder BCC, fresh. ? Qty/Size/Weight: ?Single, 5.0 x 2.7 x 0.8 cm. ? Tissue Description: ?? Ellipse of smith skin with a central, 0.8-cm, white, ? scarred area. ??The specimen is received oriented with ? a long suture at one side margin designating lateral, 9 o'clock and a ? short suture at one end designating anterior, 6 o'clock. ??The specimen is ? inked blue from 12 to 3 to 6 o'clock and black from 6 to 9 to 12 o'clock. ? Sections/Processing: ??A full-thickness central section to include lesion to ? deep margin as well as 3 and 9 o'clock margins is ? submitted for frozen section and resubmitted as (A1). ??The remainder of ? this specimen is submitted as follows: ??(A2) 12 o'clock end; (A3-A9) body ? from 12 to 6 o'clock; (A10) 6 o'clock end. ??(T10) ? B - Labeled/Fixative: Right shoulder BCC 2 o'clock ink old margin, fresh. ? Qty/Size/Weight: ?Single, 0.8 x 0.3 x 0.1 cm. ? Tissue Description: ?? [place]-smith fragment of skin with blue ink designating ? old margin. ? Sections/Processing: ??Submitted for frozen section. ??The frozen section ? residue, which is the entire specimen, is submitted ? in (B1). ??(T1) ? [facility] ? Provider: ?? SABRINA SANCHEZ ? Pt. Name: ?? CHRISTY AMBROSE ? Acc #: ?[id number] ? Pt. ? Col Date: ?? 04/19/2012 ? /Sex: ?1960,(51 years),Male ? Rec Date: ?? 04/19/2012 ? LOC: ?SDA ? SURGICAL PATHOLOGY ? C - Labeled/Fixative: Right shoulder BCC 4 o'clock, fresh. ? Qty/Size/Weight: ?Single, 0.6 x 0.3 x 0.2 cm. ? Tissue Description: ?? Smith fragment of skin with blue ink designating old ? margin. ? Sections/Processing: ??Submitted for frozen section. ??The frozen section ? residue, which is the entire specimen, is submitted ? in (C1). ??(T1) ? D - Labeled/Fixative: Right shoulder BCC 7 o'clock, fresh. ? Qty/Size/Weight: ?Single, 0.5 x 0.3 x 0.2 cm. ? Tissue Description: ?? Smith fragment of skin with blue ink designating old ? margin. ? Sections/Processing: ??Submitted for frozen section. ??The frozen section ? residue, which is the entire specimen, is submitted ? in (D1). ??(T1) ? E - Labeled/Fixative: Right shoulder BCC 10 o'clock, fresh. ? Qty/Size/Weight: ?Single, 0.5 x 0.3 x 0.2 cm. ? Tissue Description: ?? Smith fragment of skin which is received with blue ink ? designating old margin. ? Sections/Processing: ??Submitted for frozen section. ??The frozen section ? residue, which is the entire specimen, is submitted ? in (E1). ??(T1) aje/SNS ? ---Clinical Information--- ? Specimen Submitted: ? A - Right shoulder BCC short stitch anterior long stitch lateral, history ? of immunosuppression - frozen section at 12,3,6, and 9 o'clock. Short ? stitch at 6 o'clock and long stitch 9 o'clock for frozen section ? B - Right shoulder BCC, 2 o'clock ink old margin for frozen section ? C - Right shoulder BCC, 4 o'clock for frozen section ? D - Right shoulder BCC 7 o'clock for frozen section ? E - Right shoulder BCC, 10 o'clock for frozen section ? Clinical History/Diagnosis: ? BCC right shoulder [facility] DO[facility] 04/19/2012 3:07 PM EDT Sabrina Sanchez MD PATHOLOGY/CYTOLOGY O RDERABLES [facility] * FROZEN SECTION REPORT (04/19/2012 3:07 PM EDT) Frozen Section Report ? [facility] ? Provider: ?? SABRINA SANCHEZ ? Pt. Name: ?? CHRISTY AMBROSE ? Acc #: ?[id number] ? Pt. ? Col Date: ?? 04/19/2012 ? /Sex: ?1960,(51 years),Male ? Rec Date: ?? 04/19/2012 ? LOC: ?SDA ? FROZEN SECTION REPORT ? ---Frozen Section Report--- ? A - Right shoulder BCC short stitch anterior long stitch lateral, history ? of immunosupression - frozen section at 12,3,6, and 9 o'clock. Short stitch ? at 6 o'clock and long stitch 9 o'clock for frozen section: ? Basal cell carcinoma; The 3 o'clock and 9o'clock margin are negative for ? carcinoma. ? B - Right shoulder BCC, 2 o'clock ink old margin for frozen section: ? No basal cell carcinoma is identified in these sections. ? C - Right shoulder BCC, 4 o'clock for frozen section: ? No basal cell carcinoma is identified in these sections. ? D - Right shoulder BCC 7 o'clock for frozen section: ? No basal cell carcinoma is identified in these sections. ? E - Right shoulder BCC, 10 o'clock for frozen section: ? No basal cell carcinoma is identified in these sections. ? 04/19/12 15:51 ? 04/19/12 ??Verified by: ??Lakhwinedr JONES, Sukumar Sanchez, Dermatopathologist ? The attending pathologist whose electronic signature appears on this report ? has reviewed all diagnostic slides in rendering the frozen section ? diagnosis. ? This intraoperative consultation should be interpreted as a preliminary ? diagnosis pending review of the entire specimen and special studies, if ? any. [facility] DOYLE 04/19/2012 3:07 PM EDT Sabrina Sanchez MD PATHOLOGY/CYTOLOGY O UMESH Performing Organization Address [facility] Co de Phone Number BUSHRA DOYLE * Specimen to Pathology (surgical or derm) (04/19/2012 3:04 PM EDT) AP Specimen 04/19/2012 3:04 PM EDT 04/19/2012 3:04 PM EDT Narrative CODISHANNAN SIMONIUM - 04/19/2012 3:04 PM EDT Specimen requisition ordered. ??Separate Pathology report to follow Sabrina Sanchez MD PATHOLOGY/CYTOLOGY O UMESH Performing Organization Address [facility] Co de Phone Number BUSHRA DOYLE * (ABNORMAL) Prothrombin Time (04/19/2012 1:14 PM EDT) Prothrombin Time 19.0(H) 11.9 - 14.7 sec BUSHRA SIMONIUM Comment: [facility] Transfusion Committee Guidelines: INR less than 2.0, PTT less than OR equal to 43.5 seconds, or Fibrinogen greater than or equal to 100 mg/dl indicate adequate procoagulant activity for hemostasis in patients without underlying bleeding disorders. International Normalization Ratio 1.6(H) 0.9 - 1.1 BUSHRA SIMONIUM Blood specimen (specimen) 04/19/2012 1:14 PM EDT 04/19/2012 1:20 PM EDT Narrative Resulting Agency Comment Spec In Lab Julio Frausto MD HEMATOLOGY ORDERABLE S [facility] documented in this encounter Visit Diagnoses Not on filedocumented in this encounter Administered Medications Inactive Administered Medications - up to 3 most recent administrations Medication Order MAR Action Action Date Dose Rate Site BUpivacaine-epiNEPHrine 0.25 %-1:200,000 injection ONCE PRN, Starting on Wed04/19/12 at 1500, Until Wed04/19/12 at 2034, Intra-Operative (Intra-Procedure), Routine Given 04/19/2012 3:00 PM EDT 20 mg 19- Surgical Site ceFAZolin (ANCEF) 2g in dextrose 5% 100mL 2 g, Intravenous, ONCE, 1 dose, On Wed04/19/12 at 1345, Administer over 30 Minutes, Day of Surgery (Day of Procedure), Indication for (Active or Suspected): Prophylaxis Given 04/19/2012 2:53 PM EDT 2 g documented in this encounter Active and Recently Administered Medications Times are shown in EDT. Scheduled Medication Order 04/17/2012 04/18/2012 04/19/2012 ceFAZolin (ANCEF) 2g in dextrose 5% 100mL (COMPLETED) 2 g, Intravenous, ONCE, 1 dose, On 04/19/12 at 1345, Administer over 30 Minutes, Day of Surgery (Day of Procedure), Indication for (Active or Suspected): Prophylaxis 1345 (Due)1453 (Give n - Provider: Kori Hinton) PRN Medication Order 04/17/2012 04/18/2012 04/19/2012 BUpivacaine-epiNEPHrine 0.25 %-1:200,000 injection (CANCELED) ONCE PRN, Starting on Wed04/19/12 at 1500, Until Wed04/19/12 at 2033, Intra-Operative (Intra-Procedure), Routine 1500 (Given - Provid er: Sabrina Sanchez MD - Comment: 8 ml used.) documented in this encounter Care Teams Supervisor Vendor Quality Relationship Specialty Start Date End Date Carroll Fuentes DO [address] [place] [address] [address] PCP - General 09/23/11 10/20/22 documented as of this encounter
--- OUTSIDE RECORDS SUMMARY | 2024-04-22 11:16 | XMS_ITS | Encounter Summary ---
Author Organization [facility] [place] [address] Care Team Providers Care Field Care Advocate Name Role Phone AlfredoCarroll allison Primary Care Provider [phone] Reason for Visit * Reason Onset Date Comments Other 05/02/2012 reschedule misse d appointment Encounter Details Date Type Department Care Team (Late st Contact Info) Description 05/02/2012 [place] [phone] Alfonzo Miles MD [facility] [place] [address] Other (reschedule missed appointment) Social History Tobacco Use Types Packs/Day Years [...] Miscellaneous Notes * Telephone Encounter - Cally Gonzalez - 05/02/2012 12:23 PM EDT Called patient,left message to call back to rescheduled missed appointment. documented in this encounter Plan of Treatment Not on file documented as of this encounter Visit Diagnoses Not on filedocumented in this encounter Care Teams Field Care Advocate Relationship Specialty Start Date End Date Carroll Fuentes DO [address] [place] [address] PCP - General 09/23/11 10/20/22 documented as of this encounter
--- OUTSIDE RECORDS SUMMARY | 2024-04-22 11:16 | XMS_ITS | Encounter Summary ---
[place] [address] Care Team Providers Care Surgical Training Specialist Name Role Phone Carroll Fuentes DO Primary Care Provider Encounter Details Date Type Department Care Team (Late st Contact Info) Description 04/27/2012 External Results [place] [address] Social History Tobacco Use Types Packs/Day Years [...] Priority Date/Time Associated Diagnosis Comments LAB SCAN Routine 04/22/2012 documented in this encounter Results * Scan Doc: Lab (04/22/2012) Historical Provider MD [facility] MGR SCAN EX T ORDR/RSLT documented in this encounter Visit Diagnoses Not on filedocumented in this encounter Care Teams Surgical Training Specialist Relationship Specialty Start Date End Date Carroll Fuentes DO [address] [place] [address] PCP - General 09/23/11 10/20/22 documented as of this encounter
--- OUTSIDE RECORDS SUMMARY | 2024-04-22 11:16 | XMS_ITS | Encounter Summary ---
Author Organization [facility] Address [facility] [place] [address] Care Team Providers Care Linen Controller Name Role Phone AlfredoCarroll allison Primary Care Provider Encounter Details Date Type Department Care Team (Latest Contact Info) Description 02/22/2012 6:56 PM EDT - 02/22/2012 11:59 PM EDT Hospital [place] [address] Anup Hawkins MD [facility] [place] [address] Discharge Disposition: Home Social History Tobacco Use [...] Sig Dispensed Refills Start Date End Date DILTiazem (CARTIA XT) 120 mg 24 hr [...] Transplant Date; 11-26-02 240 capsule 11 08/07/2011 03/16/2012 CELLCEPT 250 mg capsuleIndications:S/ P kidney transplant Take 4 capsules by mouth 2 times daily. Kidney Transplant V42.0. Transplant Date; 11-26-02 240 capsule 11 08/07/2011 01/25/2013 leveTIRAcetam (KEPPRA) 1,000 mg tablet Take 1 tablet by mouth 2 times daily. 60 tablet 11 04/14/2011 04/18/2012 AMOXICILLIN TRIHYDRATE (TRIMOX ORAL) Take 2,000 mg by mouth. 1 hour Prior to dental procedures 05/11/2017 metoprolol tartrate (LOPRESSOR) 50 mg tablet Take 50 mg by mouth 3 times daily. 12/03/2010 10/20/2017 documented as of this encounter Plan of Treatment Not on file documented as of this encounter Procedures Procedure Name Priority Date/Time Associated Diagnosis Comments TACROLIMUS LEVEL Routine 02/22/2012 9:40 AM EDT documented in this encounter Results * TACROLIMUS LEVEL (02/22/2012 9:40 AM EDT) Tacrolimus <3.0 ng/mL [facility] DO[facility] Comment:Trough therapeutic: 5-15 ng/mL Blood specimen (specimen) 02/22/2012 9:40 AM EDT 02/23/2012 8:18 AM EDT Narrative Resulting Agency Comment Spec In Lab Anup Hawkins MD CHEMISTRY ORDERAB LES [facility] documented in this encounter Visit Diagnoses Not on filedocumented in this encounter Care Teams Linen Controller Relationship Specialty Start Date End Date Carroll Fuentes DO [address] [place] [address] PCP - General 09/23/11 10/20/22 documented as of this encounter
--- OUTSIDE RECORDS SUMMARY | 2024-04-22 11:16 | XMS_ITS | Encounter Summary ---
[place] [address] Care Team Providers Care Multiple Launch Rocket System Crewmember Name Role Phone AlfredoCarroll allison Primary Care Provider [phone] Reason for Visit * Reason Onset Date Comments Skin Lesion 03/23/2012 rt. shoulder Encounter Details Date Type Department Care Team (Late st Contact Info) Description 03/23/2012 Telephone [place] [phone] Janeth Nixon RN Skin Lesion (rt. shoulder) Social History Tobacco Use Types Packs/Day Years [...] Telephone Encounter - Janeth Nixon RN - 03/23/2012 11:08 AM EDT Message copied by JANETH NIXON on WedMar 23, 2012 11:08 AM ------ Message from: DARLENE JACKSON Created: WedMar 22, 2012 3:42 PM FYI - Pt called to advise he is seeing Plastic Surgery tomorrow for a skin biopsy. 03/23/12 @ 11:10 A.M. yard coordinator note: Spoke with Adama- reports that his PCP noticed a discolored skin lesionon the top of his right shoulder at his yearly physical, he biopsied it which Adama states, came out positive for cancer. Saw the Plastic Surgeon, Dr. Damián Medrano, who Adama states is planning on scheduling a surgical procedure to remove the lesion. Plan: Will notify Dr. Hawkins of the above information documented in this encounter Plan of Treatment Not on file documented as of this encounter Visit Diagnoses Not on filedocumented in this encounter Care Teams Multiple Launch Rocket System Crewmember Relationship Specialty Start Date End Date Carroll Fuentes DO [address] [place] [address] PCP - General 09/23/11 10/20/22 documented as of this encounter
--- OUTSIDE RECORDS SUMMARY | 2024-04-22 11:16 | XMS_ITS | Encounter Summary ---
Author Organization Formerly [facility] Address [facility] [place] [address] Care Team Providers Care Finisher Cold Rolling Name Role Phone AlfredoCarroll allison Primary Care Provider [phone] Encounter Details Date Type Department Care Team (Latest Contact Info) Description 09/20/2012 7:44 PM EDT - 09/20/2012 11:59 PM EDT [place] [address] Anup Hawkins MD [facility] [place] [address] Discharge Disposition: Home Social History Tobacco Use [...] Sig Dispensed Refills Start Date End Date leveTIRAcetam (KEPPRA) 1,000 mg tablet take 1 tablet by mouth twice a day 60 tablet 0 09/16/2012 11/21/2012 hydrALAZINE (APRESOLINE) 50 mg tabletIndications:HTN (hypertension) take [...] Date/Time Associated Diagnosis Comments TACROLIMUS LEVEL Routine 09/20/2012 9:15 AM EDT documented in this encounter Results * Tacrolimus level (09/20/2012 9:15 AM EDT) Tacrolimus 3.2 ng/mL [facility] Comment:Trough therapeutic: 5-15 ng/mL Blood specimen (specimen) 09/20/2012 9:15 AM EDT 09/21/2012 8:10 AM EDT Narrative Resulting Agency Comment Spec In Lab Anup Hawkins MD [facility] documented in this encounter Visit Diagnoses Not on filedocumented in this encounter Care Teams Finisher Cold Rolling Relationship Specialty Start Date End Date Carroll Fuentes DO [address] [place] [address] PCP - General 09/23/11 10/20/22 documented as of this encounter
--- OUTSIDE RECORDS SUMMARY | 2024-04-22 11:16 | XMS_ITS | Encounter Summary ---
Author Organization Formerly [facility] Address [facility] [place] [address] Care Team Providers Care Fitness Manager Name Role Phone Carroll Fuentes DO Primary Care Provider Encounter Details Date Type Department Care Team (Late st Contact Info) Description 04/12/2012 Abstract [place] [address] Alfonzo Miles MD [facility] [place] [address] Social History Tobacco Use Types Packs/Day Years [...] filedocumented in this encounter Care Teams Fitness Manager Relationship Specialty Start Date End Date Carroll Fuentes DO [address] [place] [address] PCP - General 09/23/11 10/20/22 documented as of this encounter
--- OUTSIDE RECORDS SUMMARY | 2024-04-22 11:16 | XMS_ITS | Encounter Summary ---
Author Organization Formerly [facility] Address [facility] [place] [address] Care Team Providers Care Map Colorer Name Role Phone Carroll Fuentes DO Primary Care Provider Reason for Visit * Reason Onset Date Comments Medication Refill 02/15/2012 Encounter Details Date Type Department Care Team (Late st Contact Info) Description 02/15/2012 Refill [place] [address] Anup Hawkins MD [facility] [place] [address] HTN (hypertension) (Primary Dx) Social History Tobacco [...] hypertension documented in this encounter Care Teams Map Colorer Relationship Specialty Start Date End Date Carroll Fuentes DO [address] [place], [place] [address] PCP - General 09/23/11 10/20/22 documented as of this encounter
--- OUTSIDE RECORDS SUMMARY | 2024-04-22 11:16 | XMS_ITS | Encounter Summary ---
Author Organization [place] [address] Care Team Providers Care Park Maintenance Technician Name Role Phone AlfredoCarroll allison Primary Care Provider [phone] Encounter Details Date Type Department Care Team (Latest Contact Info) Description 10/24/2012 External Results [place] [address] Anastasia García RN Transplanted kidney; Need for prophylactic immunotherapy Social [...] Procedure Name Priority Date/Time Associated Diagnosis Comments [facility] TRANSPLANT FOLLOW UP LABS EXTERNAL RESULTS PANEL Routine 10/21/2012 Transplanted kidney Need for prophylactic immunotherapy documented in this encounter Results * (ABNORMAL) Transplant: Follow up lab request - EXTERNAL collections (10/21/2012) White Blood Cell 3.52 Hemoglobin 13.0(A) 13.5 - 17.5 Hematocrit 40.9(A) 41.0 - 53.0 Amylase 25 - 110 Lipase 0 - 53 Blood Urea Nitrogen 31 Creatinine 2.3 Tacrolimus ABORH Type 10/21/2012 Anup Hawkins MD CHEMISTRY ORDERAB LES documented in this encounter Visit Diagnoses Diagnosis Transplanted kidney Kidney replaced by transplant Need for prophylactic immunotherapy documented in this encounter Care Teams Park Maintenance Technician Relationship Specialty Start Date End Date Carroll Fuentes DO [facility] [address] [place] [address] PCP - General 09/23/11 10/20/22 documented as of this encounter
--- OUTSIDE RECORDS SUMMARY | 2024-04-22 11:16 | XMS_ITS | Encounter Summary ---
Author Organization [facility] Address [facility] [place] [address] Care Team Providers Care Box Maker Name Role Phone Carroll Fuentes DO Primary Care Provider [phone] Encounter Details Date Type Department Care Team (Late st Contact Info) Description 04/26/2012 Orders Only [place] [address] Anup Hawkins MD [facility] [place] [address] Transplanted kidney; Need for prophylactic immunotherapy Social [...] of this encounter Visit Diagnoses Diagnosis Transplanted kidney Kidney replaced by transplant Need for prophylactic immunotherapy documented in this encounter Care Teams Box Maker Relationship Specialty Start Date End Date aCrroll Fuentes DO [address] [place], [place] [address] PCP - General 09/23/11 10/20/22 documented as of this encounter
--- OUTSIDE RECORDS SUMMARY | 2024-04-22 11:16 | XMS_ITS | Encounter Summary ---
Author Organization [facility] Address [facility] [place] [address] Care Team Providers Care Clinical Outcomes Manager Name Role Phone AlfredoCarroll allison Primary Care Provider Encounter Details Date Type Department Care Team (Latest Contact Info) Description 01/21/2012 7:22 PM EDT - 01/21/2012 11:59 PM EDT [place] [address] Anup Hawkins MD [facility] [place] [address] Discharge Disposition: Home Social History Tobacco Use [...] Date; 11-26-02 240 capsule 11 08/07/2011 01/25/2013 hydrALAZINE (APRESOLINE) 50 mg tablet Take 1 tablet by mouth 2 times daily. 60 tablet 12 06/03/2011 01/22/2012 leveTIRAcetam (KEPPRA) 1,000 mg tablet Take 1 tablet by mouth 2 times daily. 60 tablet 11 04/14/2011 04/18/2012 AMOXICILLIN TRIHYDRATE (TRIMOX ORAL) Take 2,000 mg by mouth. 1 hour Prior to dental procedures 05/11/2017 metoprolol tartrate (LOPRESSOR) 50 mg tablet Take 50 mg by mouth 3 times daily. 12/03/2010 10/20/2017 DILTiazem (CARTIA XT) 120 mg 24 hr capsule 120 MG = 1 Capsule(s), PO, Once daily 04/08/2010 02/15/2012 documented as of this encounter Plan of Treatment Not on file documented as of this encounter Procedures Procedure Name Priority Date/Time Associated Diagnosis Comments TACROLIMUS LEVEL Routine 01/21/2012 10:5 0 AM EDT documented in this encounter Results * TACROLIMUS LEVEL (01/21/2012 10:50 AM EDT) Tacrolimus 4.0 ng/mL [facility] Comment:Trough therapeutic: 5-15 ng/mL Blood specimen (specimen) 01/21/2012 10:50 AM EDT 01/22/2012 7:57 AM EDT Narrative Resulting Agency Comment Spec In Lab Anup Hawkins MD CHEMISTRY ORDERAB LES [facility] documented in this encounter Visit Diagnoses Not on filedocumented in this encounter Care Teams Clinical Outcomes Manager Relationship Specialty Start Date End Date Carroll Fuentes DO [address] [place] [address] PCP - General 09/23/11 10/20/22 documented as of this encounter
--- OUTSIDE RECORDS SUMMARY | 2024-04-22 11:16 | XMS_ITS | Encounter Summary ---
Author Organization [facility] Address [facility] [place] [address] Care Team Providers Care Printer Operator Name Role Phone Carroll Fuentes DO Primary Care Provider [phone] Reason for Visit * Reason Onset Date Comments Medication Refill 01/22/2012 Encounter Details Date Type Department Care Team (Late st Contact Info) Description 01/22/2012 Refill [place] [address] Anup Hawkins MD [facility] [place] [address] HTN (hypertension) (Primary Dx) Social History Tobacco [...] hypertension documented in this encounter Care Teams Printer Operator Relationship Specialty Start Date End Date Carroll Fuentes DO [address] [place], [place] [address] PCP - General 09/23/11 10/20/22 documented as of this encounter
--- OUTSIDE RECORDS SUMMARY | 2024-04-22 11:16 | XMS_ITS | Encounter Summary ---
Author Organization [facility] Address [facility] [place] [address] Care Team Providers Care Catalog Library Assistant Name Role Phone Carroll Fuentes DO Primary Care Provider Encounter Details Date Type Department Care Team (Late st Contact Info) Description 04/15/2012 Orders [place] [address] Fabiana Valenzuela PA [facility] [place] [address] Left leg DVT Anesthesia Record Procedure Summary Procedure Name Responsible Anesthesiologist Anesthesia Start Time Anesthesia Stop Time REPAIR INTERMEDIATE WOUND, (NO HANDS OR FEET) 2.6 TO 7.5CM, UPPER EXTREMITY (WRVU 2.52) (Right) Herman Rai MD 04/19/12 1414 04/19/12 1607 Events Date Time Event Comment 04/19/2012 1409 1414 Start 1607 Stop Meds * Agents No agents on file. * Blood No blood administrations on file. Lines, Drains, and Airways Type Details Placement Removal Incision 04/19/12; shoulder; 02/05/16; 1050 04/19/12 0000 by Nitza Hammer RN 02/05/16 1050 by Gricelda Sandoval, RN (RETIRED) Peripheral IV Line - Single Lumen 04/19/12; 1353; 04/19/12; 1829 10/09/12 1353 by Natalia Landeros RN 04/19/12 1829 by Karuna Martell V RN documented in this encounter Social History [...] as of this encounter Visit Diagnoses Diagnosis Left leg DVT Acute venous embolism and thrombosis of unspecified deep vessels of lower extremity documented in this encounter Care Teams Catalog Library Assistant Relationship Specialty Start Date End Date Carroll Fuentes DO [address] [place] [address] PCP - General 09/23/11 10/20/22 documented as of this encounter
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
--- OUTSIDE RECORDS SUMMARY | 2024-04-22 11:16 | XMS_ITS | Encounter Summary ---
Author Organization [facility] [place] [address] Care Team Providers Care Urogynecology Physician Name Role Phone Carroll Fuentes DO Primary Care Provider [phone] Reason for Visit * Reason Onset Date Comments Other 02/03/2012 [employer] entered -script to Encounter Details Date Type Department Care Team (Late st Contact Info) Description 02/03/2012 Telephone [place] [phone] Nanda Tao Other ([employer] entered-script to ) Social History Tobacco Use Types [...] * Telephone Encounter - Nanda Tao - 02/03/2012 4:06 PM EDT [employer] entered-script to Dr Suarez entered annual application online for prograf. Sent prescription to [facility] for Dr. Ross barreto.[facility] [id number] documented in this encounter Plan of Treatment Not on file documented as of this encounter Visit Diagnoses Not on filedocumented in this encounter Care Teams Urogynecology Physician Relationship Specialty Start Date End Date Carroll Fuentes DO [address] [place] [address] PCP - General 09/23/11 10/20/22 documented as of this encounter
--- OUTSIDE RECORDS SUMMARY | 2024-04-22 11:16 | XMS_ITS | Encounter Summary ---
Author Organization [facility] [place] [address] Care Team Providers Care Guest Relations Receptionist Name Role Phone AlfredoCarroll allison Primary Care Provider [phone] Reason for Referral * Consultation (Routine) - Entered in Error Specialty Diagnoses / Procedures Referred By Shashi ko Referred To Contact Transplant Diagnoses BCC (basal cell carcinoma of skin) Sabrina Sanchez MD [facility] [place] [address] [facility] [address] [place] [address] Referral ID Status Reason Start Date Expiration Date Visits Requested Visits Authorized [id number] Entered in Error Consult Only 03/23/2012 09/19/2012 1 1 Reason for Visit * Reason Comments Advice Only clavical BCC Encounter Details Date Type Department Care Team (Late st Contact Info) Description 03/23/2012 8:30 AM EDT Office Visit [place] [phone] Sabrina Sanchez MD [facility] [place] [address] BCC (basal cell carcinoma of skin) (Primary Dx) Discharge Disposition: Home Social History [...] this encounter Patient Instructions * Patient Instructions* Meghan Mason LPN - 03/23/2012 9:45 AM EDT You were given written and verbal preoperative instructions today. To prepare for your upcoming surgery, please review the Pre-Operative Instruction brochure that youwere given at today's appointment. Feel free to call our office [phone] if you have any questions or concerns. We monitor the phones from 8-5 Wednesday through Wednesday. documented in this encounter Progress Notes * Meghan Mason LPN - 03/23/2012 9:44 AM EDT Pre-Op Teaching for Surgery Surgery: Exc of BCC pm right shoulder Written and verbal pre-operative instructions given and reviewed with patient. Patient was advised to discontinue use of NSAIDS and aspirin products 14 days prior to surgery unless otherwise advised by patient's PCP/Cullet Washer for cardiac symptoms, to perform the pre-op scrub, and coordinate ride home following surgery. Discussed and answered all questions including post opcourse and activity limitations. Photos taken Patient was told to call the clinic for any questions or concerns prior to surgery. * Sabrina Sanchez MD - 03/23/2012 9:35 AM EDT PLASTIC SURGERY CONSULTATION CARROLL GARCIA DO REAL ESTATE CONSULTANT: As above CC: Right Clavicular BCC HPI: Adama Ram is a 51 y.o. male here in consultation at the request of Dr. CARROLL GARCIA DO to discuss excision and reconstruction of right shoulder BCC. He reports that he recalls a pimple like lesion in the area since he was 11 years of age. He had the lesion biopsied recently at an OSH which revealed BCC. He has a history of kidney transplant, he also has a DVT and is actively anticoagulated. Patient Active Problem List Diagnoses Code ??? Epilepsy 345.90A ??? End stage renal disease 585.6 ??? Gout 274.9H ??? Hypertension 401.9AJ ??? Left leg DVT 453.40BK ??? Kidney replaced by transplant V42.0 ??? IgA nephropathy 583.9CE Past Surgical History Procedure Date ??? Created by interface Entered not Verified Procedure Date: 09/19/2010 ??? Kidney transplant KIDNEY TRANSPLANT / RECIPIENT/LT Procedure Date: 11/26/2002 ??? Us renal transplant biopsy 12/31/2010 History Social History ??? Marital Status: Single Spouse Name: N/A Number of Children: N/A ??? 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 Smoking status: Former Smoker Types: Cigarettes Quit date: 12/03/2000 ??? Smokeless tobacco: Former User Quit date: 04/14/2001 ??? Alcohol Use: No ??? Drug Use: No ??? Sexually Active: Not on file Deferred Other Topics Concern ??? Not on file Social History Narrative ??? No narrative on file Allergies Allergen Reactions ??? Pollen Extracts Other (See Comments) sneezing/runny nose ??? Hydrochlorothiazide ??? Benazepril Hcl Current outpatient prescriptions ordered prior to encounter [...] mg tablet 150 MG, PO, Once daily REVIEW OF SYSTEMS: GI, . Psych, Neuro, Renal, Immun., Heme, Card, Pulm: Negative EXAMINATION: Constitutional: NAD HEENT: MMM, normocephalic, EOMI Pulm: symmetric excursion, unlabored, no audible wheeze Cor: pulse regular Abd: soft, NT/ND Musculoskel: gross full ROM x 4 extrem Skin: 2 cm rodent type ulcer of right shoulder, non infected and recently biopsied. Neuro: motor and sensory exam grossly normal Laboratory: Pathology on file from OSH (Scanned doc) positive for BCC. Assessment: Adama Ram 51 y.o. 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 Wediscussed options for treatment focusing on excision with primary closure. We also discussed the possibility of a skin graft or local flap if the post-excisional defect is larger than expected as sometimes occurs in immunosuppressed patients. He has a complex medical history and is currently takingcoumadin for his DVT, it is likely he will need to continue taking this perioperatively. However, we will obtain consultation from the Transplant team regarding his ability to transition to lovenox in the pre and post op period and if he can have a small window without anticoagulation. He is aware this puts him at higher risk for bleeding intra-operatively and post -op. As he is immunosuppressed he is at higher risk for wound healing complications and infection post-op. I advised that his surgery would be ideally performed in the main OR with frozen section analysis to maximize the chance to achieve negative margins prior to closure. We discussed potential risks and complications which include but are not limited to: Pain, bleeding, infection, scarring, asymmetry, hematoma, seroma, poor cosmetic outcome, failure ofprocedure, possible need for revision, damage to adjacent structures. Recommendations: Excision with intra operative frozen section analysis and primary closure vs local flaps or grafts (with possibility of skin graft) in Main OR. Will need pre-op medical clearance and guidance from Transplant team regarding patients ability to transition to lovenox or not and wether or not the anticoagulation can be suspended or not to limit bleeding complcations from the procedure. I, Chastity Harrington, am acting as scribe for Dr Sanchez. All work documented was performed by Dr Sanchez. ???I performed the above scribed service and agree with the accuracy of the note?? SABRINA SANCHEZ MD documented in this encounter Miscellaneous Notes * Miscellaneous - Rick, Civil Celebrant - 04/20/2012 6:07 AM EDT * Miscellaneous - Rick, Civil Celebrant - 03/29/2012 11:12 AM EDT * Miscellaneous - Rick, Civil Celebrant - 03/23/2012 8:28 PM EDT documented in this encounter Plan of Treatment Scheduled Referrals Name Type Priority Associated Diagnoses Order Schedule REFERRAL TO TRANSPLANT SERVICES Outpatient Referral Routine BCC (basal cell carcinoma of skin) Ordered: 03/23/2012 documented as of this encounter Visit Diagnoses Diagnosis BCC (basal cell carcinoma of skin)- Primary Basal cell carcinoma of skin, site unspecified documented in this encounter Care Teams Guest Relations Receptionist Relationship Specialty Start Date End Date Carroll Garcia DO [address] [place] [address] PCP - General 09/23/11 10/20/22 documented as of this encounter
--- OUTSIDE RECORDS SUMMARY | 2024-04-22 11:16 | XMS_ITS | Encounter Summary ---
Author Organization [facility] Address [facility] [place] [address] Care Team Providers Care Information Technology Coordinator Name Role Phone Carroll Fuentes DO Primary Care Provider [phone] Encounter Details Date Type Department Care Team (Late st Contact Info) Description 04/19/2012 2:14 PM EDT Anesthesia Event [place] [address] Herman Rai MD [facility] [place] [address] Kori Hinton MD [facility] [place] [address] Anesthesia Record Procedure Summary Procedure Name Responsible [...] Hammer RN 02/05/16 1050 by Gricelda Sandoval, SAVANNA (RETIRED) Peripheral IV Line - Single Lumen 04/19/12; 1353; 04/19/12; 1829 04/19/12 1353 by Natalia Landeros RN 04/19/12 1829 by Karuna Martell RN documented in this encounter Social History [...] OR Notes * Anesthesia Postprocedure Evaluation - Kori Hinton - 04/20/2012 1:24 PM EDT Patient: Adama Ram Procedure(s) Performed: Procedure(s): REPAIR INTERMEDIATE WOUND, (NO HANDS OR FEET) 2.6 TO 7.5CM, UPPER EXTREMITY EXC MALIGNANT LESION, MICHAEL > 4.0CM, TRUNK Patient location: PACU Post-op pain: Adequate analgesia Post-op nausea: no nausea or vomiting Last Vitals: Filed Vitals: 04/19/12 1631 BP: Pulse: 58 Temp: Resp: 16 Post-op cardiovascular and respiratory status: is stable Level of consciousness: awake, alert and oriented Complications: no apparent complications, tolerated the procedure well and no evidence of recall Fluid Status: normal * Anesthesia Preprocedure Evaluation - Kori Hinton - 04/18/2012 3:42 PM EDT Images from the original note were not included. Anesthesia Evaluation Patient summary reviewed and Nursing notes reviewed Airway Mallampati: I TM distance: >3 FB Neck ROM: full Dental Pulmonary - negative ROS and normal exam breath sounds clear to auscultation Cardiovascular - normal exam (+) hypertension (on metoprolol, diltiazem, hydralazine), Rhythm: regular Rate: normal Neuro/Psych (+) seizures (on keppra) well controlled, GI/Hepatic/Renal (+) chronic renal disease (ESRD s/p kidney transplant secondary to IGA nephropathy - with recurrence in transplant) ESRD, Endo/Other (+) hypothyroidism, Abdominal Anesthesia Plan ASA 2 MAC with intravenous induction Plan MAC with GA/LMA back up. This is a 51 y/o M with h/o ESRD s/p kidney transplant secondary to IgA nephropathy with recurrencein transplant, seizures on keppra, and HTN (on metoprolol, hydralazine, diltiazem), with diagnosis of basal cell carcinoma of the skin; scheduled for excision and primary closure vs local flaps/grafts. Allergies: HCTZ, benazepril, pollen Anesthetic plan and risks discussed with patient. Plan discussed with attending. documented in this encounter Plan of Treatment Not on file documented as of this encounter Visit Diagnoses Not on filedocumented in this encounter Care Teams Information Technology Coordinator Relationship Specialty Start Date End Date Carroll Fuentes DO [address] [place] [address] PCP - General 09/23/11 10/20/22 documented as of this encounter
--- OUTSIDE RECORDS SUMMARY | 2024-04-22 11:16 | XMS_ITS | Encounter Summary ---
Author Organization [facility] Address [facility] [place] [address] Care Team Providers Care Freight Rate Analyst Name Role Phone AlfredoCarroll allison Primary Care Provider [phone] Reason for Visit * Reason Onset Date Comments Other 01/21/2012 MAP-Ltr to pt w/ appl Encounter Details Date Type Department Care Team (Late st Contact Info) Description 01/21/2012 [place] [phone] Nanda Tao Other (MAP-Ltr to pt w/appl) Social History Tobacco Use Types Packs/Day Years [...] * Telephone Encounter - Nanda Tao - 01/21/2012 1:17 PM EDT MAP-Ltr to pt w/appl Reviewed pt med list-only other pgm was for Synthroid. I sent the application to Mr. Ram for himto complete, sign, and return to me. We have proof of income on file. I will follow through with the application once everything is returned to me. I included RX-Outreach application for Kristen Downing, Coumadin and allopurinol. Reviewed process to apply directly to the [employer] if cost is less for him.[facility] [id number] documented in this encounter Plan of Treatment Not on file documented as of this encounter Visit Diagnoses Not on filedocumented in this encounter Care Teams Freight Rate Analyst Relationship Specialty Start Date End Date Carroll Fuentes DO [address] [place] [address] [address] [facility] [address] [place] [address] PCP - General 09/23/11 10/20/22 documented as of this encounter
--- OUTSIDE RECORDS SUMMARY | 2024-04-22 11:16 | XMS_ITS | Encounter Summary ---
Author Organization [facility] Address [facility] [place] [address] Care Team Providers Care Ornamental Ironworker Name Role Phone Carroll Fuentes DO Primary Care Provider Encounter Details Date Type Department Care Team (Latest Contact Info) Description 04/19/2012 12:56 PM EDT - 04/19/2012 6:20 PM EDT Hospital En[place] [phone] Sabrina Sanchez MD [facility] [place] [address] Left leg DVT Discharge Disposition: Home Social History Tobacco Use [...] Pressure 122/82 04/19/2012 4:16 PM EDT Pulse 58 04/19/2012 4:31 PM EDT Temperature 36.2 ??C (97.2 ??F) 04/19/2012 4:00 PM ED T Respiratory Rate 16 04/19/2012 4:31 PM EDT Oxygen Saturation 99% 04/19/2012 4:31 PM EDT Inhaled Oxygen Concentration - - [...] Sanchez MD - 04/19/2012 5:02 PM EDT [facility] Operative Note Patient Name: Christy Ambrose : [id number] MR#: [id number] Case Date: 04/19/2012 Surgeon: Surgeon(s) and Role: [...] pathologic frozen section analysis. We also took food service representative sections around the existing margin at the [...] well. CPT codes for the procedure were 03218 and 80069. * OR Attestation - Sabrina Sanchez MD - 04/19/2012 3:53 PM EDT Attestation: Case Date: 04/19/2012 I was present and I participated during the entire procedure (does not need to include opening and closing). SABRINA SANCHEZ MD 04/19/2012 * Brief Op Note - Sabrina Sanchez MD - 04/19/2012 3:52 PM EDT Brief Operative Note Patient Name: Christy Ambrose : [id number] MR#: [id number] Case Date: 04/19/2012 Surgeon: Surgeon(s) and Role: [...] MD PATHOLOGY/CYTOLOGY O UMESH Performing Organization Address [facility] de Phone Number [facility] * Specimen to Pathology (surgical or derm) (04/19/2012 3:14 PM EDT) AP Specimen 04/19/2012 3:14 PM EDT 04/19/2012 3:14 PM EDT Narrative [facility] - 04/19/2012 3:14 PM EDT Specimen requisition ordered. ??Separate Pathology report to follow Sabrina Sanchez MD PATHOLOGY/CYTOLOGY O UMESH Performing Organization Address [facility] de Phone Number [facility] * Specimen to Pathology (surgical or derm) (04/19/2012 3:14 PM EDT) AP Specimen 04/19/2012 3:14 PM EDT 04/19/2012 3:14 PM EDT Narrative [facility] - 04/19/2012 3:14 PM EDT Specimen requisition ordered. ??Separate Pathology report to follow Sabrina Sanchez MD PATHOLOGY/CYTOLOGY John CALVO Performing Organization Address [facility] de Phone Number [facility] * Specimen to Pathology (surgical or derm) (04/19/2012 3:14 PM EDT) AP Specimen 04/19/2012 3:14 PM EDT 04/19/2012 3:14 PM EDT Narrative [facility] - 04/19/2012 3:14 PM EDT Specimen requisition ordered. ??Separate Pathology report to follow Sabrina Sanchez MD PATHOLOGY/CYTOLOGY O UMESH Performing Organization Address [facility] de Phone Number [facility] * SURGICAL PATHOLOGY REPORT (04/19/2012 3:07 PM EDT) Surgical Pathology Report ? [facility] ? Provider: ?? SABRINA SANCHEZ ? Pt. Name: ?? CHRISTY AMBROSE ? Acc #: ?[id number] ? Pt. ? Col Date: ?? 04/19/2012 [...] completely excised in these ? sections. ? [facility] ? Provider: ?? SABRINA SANCHEZ ? Pt. Name: ?? CHRISTY AMBROSE ? Acc #: ?[id number] ? Pt. ? Col Date: ?? 04/19/2012 [...] x 0.1 cm. ? Tissue Description: ?? [place] fragment of skin with blue ink designating ? old margin. ? Sections/Processing: ??Submitted for frozen section. ??The frozen section ? residue, which is the entire specimen, is submitted ? in (B1). ??(T1) ? [facility] ? Provider: ?? SABRINA SANCHEZ ? Pt. Name: ?? CHRISTY AMBROSE ? Acc #: ?[id number] ? Pt. ? Col Date: ?? 04/19/2012 [...] ? Clinical History/Diagnosis: ? BCC right shoulder [facility] 04/19/2012 3:07 PM EDT Sabrina Sanchez MD PATHOLOGY/CYTOLOGY O RDERABLES [facility] * FROZEN SECTION REPORT (04/19/2012 3:07 PM EDT) Frozen Section Report ? [facility] ? Provider: ?? SABRINA SANCHEZ ? Pt. Name: ?? CHRISTY AMBROSE ? Acc #: ?[id number] ? Pt. ? Col Date: ?? 04/19/2012 [...] ? 04/19/12 15:51 ? 04/19/12 ??Verified by: ??Lakhwinder JONES, Sukumar Sanchez, Dermatopathologist ? The attending pathologist whose electronic signature appears on this report ? has reviewed all diagnostic slides in rendering the frozen section ? diagnosis. ? This intraoperative consultation should be interpreted as a preliminary ? diagnosis pending review of the entire specimen and special studies, if ? any. [facility] 04/19/2012 3:07 PM EDT Sabrina Sanchez MD PATHOLOGY/CYTOLOGY O UMESH Performing Organization Address [facility] de Phone Number [facility] * Specimen to Pathology (surgical or derm) (04/19/2012 3:04 PM EDT) AP Specimen 04/19/2012 3:04 PM EDT 04/19/2012 3:04 PM EDT Narrative [facility] - 04/19/2012 3:04 PM EDT Specimen requisition ordered. ??Separate Pathology report to follow Sabrina Sanchez MD PATHOLOGY/CYTOLOGY O UMESH Performing Organization Address [facility] Co de Phone Number [facility] * (ABNORMAL) Prothrombin Time (04/19/2012 1:14 PM EDT) Prothrombin Time 19.0(H) 11.9 - 14.7 sec [facility] Comment: [facility] Transfusion Committee Guidelines: INR less than [...] Lab Julio Frausto MD HEMATOLOGY ORDERABLE S CODISHANNAN BRADLEYМАРИЯ documented in this encounter Visit Diagnoses Diagnosis Left leg DVT Acute venous embolism and thrombosis of unspecified deep vessels of lower extremity documented in this encounter Active and Recently [...] Until Wed04/19/12 at 2034, Intra-Operative (Intra-Procedure), Routine 1500 (Given - Provid er: Sabrina Sanchez MD - Comment: 8 ml used.) documented in this encounter Care Teams Ornamental Ironworker Relationship Specialty Start Date End Date Carroll Fuentes DO [address] [place] [address] PCP - General 09/23/11 10/20/22 documented as of this encounter
--- OUTSIDE RECORDS SUMMARY | 2024-04-22 11:16 | XMS_ITS | Encounter Summary ---
Author Organization [facility] Address [facility] [place] [address] Care Team Providers Care Conditioner Tumbler Name Role Phone Carroll Fuentes DO Primary Care Provider [phone] Reason for Visit * Reason Onset Date Comments Medication Refill 06/24/2012 Encounter Details Date Type Department Care Team (Late st Contact Info) Description 06/24/2012 [place] [address] Alfonzo [place] MD [facility] [place] [address] Epilepsy (Primary Dx) Social History Tobacco Use Types [...] epilepsy documented in this encounter Care Teams Conditioner Tumbler Relationship Specialty Start Date End Date Carroll Fuentes DO [address] [place] [address] PCP - General 09/23/11 10/20/22 documented as of this encounter
--- OUTSIDE RECORDS SUMMARY | 2024-04-22 11:16 | XMS_ITS | Encounter Summary ---
[place] [address] Care Team Providers Care Negative Stripper Name Role Phone Carroll Fuentes DO Primary Care Provider [phone] Encounter Details Date Type Department Care Team (Late st Contact Info) Description 01/25/2012 External Results [place] [address] Social History Tobacco Use Types Packs/Day Years [...] Date/Time Associated Diagnosis Comments LAB SCAN Routine 01/21/2012 documented in this encounter Results * Scan Doc: Lab (01/21/2012) Historical Provider MD GREENE MGR SCAN EX T ORDR/RSLT documented in this encounter Visit Diagnoses Not on filedocumented in this encounter Care Teams Negative Stripper Relationship Specialty Start Date End Date Carroll Fuentes DO [address] [place] [address] PCP - General 09/23/11 10/20/22 documented as of this encounter
--- OUTSIDE RECORDS SUMMARY | 2024-04-22 11:16 | XMS_ITS | Encounter Summary ---
Author Organization [facility] [place] [address] Care Team Providers Care Film Vault Supervisor Name Role Phone AlfredoCarroll allison Primary Care Provider [phone] Reason for Visit * Reason Onset Date Comments Other 04/29/2012 MAP-Walk In ? Encounter Details Date Type Department Care Team (Late st Contact Info) Description 04/29/2012 [place] [address] Nanda Tao Other (MAP-Walk In ?) Social History Tobacco Use Types Packs/Day Years [...] * Telephone Encounter - Nanda Tao - 04/29/2012 10:55 AM EDT MAP-Walk In ? Mr. Ram came into [facility] today re:Apresoline-advised he can get generic at [facility] [id number] documented in this encounter Plan of Treatment Not on file documented as of this encounter Visit Diagnoses Not on filedocumented in this encounter Care Teams Film Vault Supervisor Relationship Specialty Start Date End Date Carroll Fuentes DO [address] [place] [address] PCP - General 09/23/11 10/20/22 documented as of this encounter
--- OUTSIDE RECORDS SUMMARY | 2024-04-22 11:16 | XMS_ITS | Encounter Summary ---
Author Organization [facility] Address [facility] [place] [address] Care Team Providers Care Bellhop Name Role Phone AlfredoCarroll allison Primary Care Provider [phone] Encounter Details Date Type Department Care Team (Latest Contact Info) Description 05/20/2012 6:50 PM EST - 05/20/2012 11:59 PM [facility] Hospital [place] [address] Anup Hawkins MD [facility] [place] [address] Discharge Disposition: Home Social History Tobacco Use [...] Date/Time Associated Diagnosis Comments TACROLIMUS LEVEL Routine 05/20/2012 7:00 AM EST documented in this encounter Results * TACROLIMUS LEVEL (05/20/2012 7:00 AM EST) Tacrolimus 3.4 ng/mL [facility] Comment:Trough therapeutic: 5-15 ng/mL Blood specimen (specimen) 05/20/2012 7:00 AM EST 05/23/2012 8:03 AM EST Narrative Resulting Agency Comment Spec In Lab Anup Hawkins MD CHEMISTRY ORDERAB LES [facility] documented in this encounter Visit Diagnoses Not on filedocumented in this encounter Care Teams Bellhop Relationship Specialty Start Date End Date Carroll Fuentes DO [address] [place] [address] PCP - General 09/23/11 10/20/22 documented as of this encounter
--- OUTSIDE RECORDS SUMMARY | 2024-04-22 11:16 | XMS_ITS | Encounter Summary ---
Author Organization [facility] Address [facility] [place] [address] Care Team Providers Care Plastics Seasoner Operator Name Role Phone Carroll Fuentes DO Primary Care Provider [phone] Reason for Visit * Reason Comments Medication Refill Encounter Details Date Type Department Care Team (Late st Contact Info) Description 09/16/2012 [place] [address] Alfonzo Miles MD [facility] [place] [address] Social History Tobacco Use Types Packs/Day Years [...] on filedocumented in this encounter Care Teams Plastics Seasoner Operator Relationship Specialty Start Date End Date Carroll Fuentes DO [address] [place] [address] PCP - General 09/23/11 10/20/22 documented as of this encounter
--- OUTSIDE RECORDS SUMMARY | 2024-04-22 11:16 | XMS_ITS | Encounter Summary ---
Author Organization [facility] Address [facility] [place] [address] Care Team Providers Care Care Worker Name Role Phone AlfredoCarroll allison Primary Care Provider [phone] Encounter Details Date Type Department Care Team (Latest Contact Info) Description 03/23/2012 8:25 AM EDT - 03/23/2012 11:59 PM EDT Hospital [place] [address] Anup Hawkins MD [facility] [place] [address] Transplanted kidney; Need for prophylactic immunotherapy Discharge [...] for Pain. 30 tablet 0 04/19/2012 04/29/2012 DILTiazem (CARTIA XT) 120 mg 24 hr [...] 12/03/2010 10/20/2017 documented as of this encounter Miscellaneous Notes * Miscellaneous - Provider, Ofe - 05/23/2012 8:58 AM EST documented in this encounter Plan of Treatment Scheduled Orders Name Type Priority Associated Diagnoses Orde r Schedule BKV Quant Urine Microbiology STAT Transplanted kidney Need for prophylactic immunotherapy 1 Occurrences starting 03/23/2012 documented as of this encounter Procedures Procedure Name Priority Date/Time Associated Diagnosis Comments U24 HRS AND VOLUME Routine 03/23/2012 10 :06 AM EDT U24 HRS AND VOLUME Routine 03/23/2012 10 :06 AM EDT URIC ACID, URINE, 24 HOUR Routine 03/23/2012 10:06 AM EDT Transplanted kidney Need for prophylactic immunotherapy CALCIUM, URINE, 24 HOUR Routine 03/23/2012 10:06 AM EDT Transplanted kidney Need for prophylactic immunotherapy CREATININE, URINE, 24 HOUR Routine 03/23/2012 10:06 AM EDT Transplanted kidney Need for prophylactic immunotherapy PROTEIN, URINE, 24 HOUR Routine 03/23/2012 10:06 AM EDT Transplanted kidney Need for prophylactic immunotherapy PHOSPHORUS, URINE, 24 HOUR Routine 03/23/2012 10:06 AM EDT Transplanted kidney Need for prophylactic immunotherapy CREATININE CLEARANCE, URINE, 24 HOUR Routine 03/23/2012 10:06 AM EDT Transplanted kidney Need for prophylactic immunotherapy BK QUANT URINE RESULT STAT 03/23/2012 9:22 AM EDT CALCIUM CREATININE RATIO, RANDOM URINE STAT 03/23/2012 9:22 AM EDT Transplanted kidney Need for prophylactic immunotherapy PHOSPHORUS, URINE, RANDOM STAT 03/23/2012 9:22 AM EDT Transplanted kidney Need for prophylactic immunotherapy URINALYSIS WITH REFLEX CULTURE STAT 03/23/2012 9:22 AM EDT Transplanted kidney Need for prophylactic immunotherapy PTH STAT 03/23/2012 9:04 AM EDT Transplanted kidney Need for prophylactic immunotherapy CMP W/FASTING GLUCOSE STAT 03/23/2012 9:04 AM EDT Transplanted kidney Need for prophylactic immunotherapy DIFFERENTIAL, AUTOMATED STAT 03/23/2012 9:04 AM EDT TACROLIMUS LEVEL STAT 03/23/2012 9:04 AM EDT Transplanted kidney Need for prophylactic immunotherapy 1,25-DIHYDROXYCHOLEC ALCIFEROL STAT 03/23/2012 9:04 AM EDT Transplanted kidney Need for prophylactic immunotherapy VITAMIN D, 25-HYDROXY STAT 03/23/2012 9:04 AM EDT Transplanted kidney Need for prophylactic immunotherapy RETICULOCYTE COUNT STAT 03/23/2012 9: 04 AM EDT Transplanted kidney Need for prophylactic immunotherapy CBC (WITH DIFF) STAT 03/23/2012 9:04 AM EDT Transplanted kidney Need for prophylactic immunotherapy URIC ACID STAT 03/23/2012 9:04 AM EDT Transplanted kidney Need for prophylactic immunotherapy PHOSPHORUS STAT 03/23/2012 9:04 AM EDT Transplanted kidney Need for prophylactic immunotherapy MAGNESIUM STAT 03/23/2012 9:04 AM EDT Transplanted kidney Need for prophylactic immunotherapy LIPID PANEL (REFLEX DIRECT LDL) STAT 03/23/2012 9:04 AM EDT Transplanted kidney Need for prophylactic immunotherapy documented in this encounter Results * U24 HRS AND VOLUME (03/23/2012 10:06 AM EDT) Hours Collected 24 hour(s) CERNER MILLENNIUM Total Volume 3800 mL CERNER MILLENNIUM Urine specimen (specimen) 03/23/2012 10:06 AM EDT 03/23/2012 10:06 AM EDT Narrative Resulting Agency Comment Spec In Lab Anup Hawkins MD CHEMISTRY ORDERAB LES CERNER BRADLEYENNIUM * U24 HRS AND VOLUME (03/23/2012 10:06 AM EDT) Hours Collected 24 hour(s) CERNER MILLENNIUM Total Volume 3800 mL CERNER MILLENNIUM Urine specimen (specimen) 03/23/2012 10:06 AM EDT 03/23/2012 10:06 AM EDT Narrative Resulting Agency Comment Spec In Lab Anup Hawkins MD CHEMISTRY ORDERAB LES [facility] Pet360ENNIUM * Uric acid, urine, 24 hour (03/23/2012 10:06 AM EDT) U24 Uric Conc 8.3 mg/dL CERNER MILLENNIUM Uric Acid, 24 Hour Urine 0.32 0.25 - 0.80 gm/24hr CERNER MILLENNIUM Urine specimen (specimen) 03/23/2012 10:06 AM EDT 03/23/2012 10:06 AM EDT Narrative Resulting Agency Comment Spec In Lab Anup Hawkins MD URINE ORDERABLES Performing Organization Address City/[facility]/ZIP Co de Phone Number CERNER MILLENNIUM * Phosphorus, urine, 24 hour (03/23/2012 10:06 AM EDT) Phosphorus Concentration, U24 20.9 mg/dL CERNER MILLENNIUM Phosphorus, 24 Hour Urine 0.8 0.4 - 1.3 gm/24hr CERNER MILLENNIUM Urine specimen (specimen) 03/23/2012 10:06 AM EDT 03/23/2012 10:06 AM EDT Narrative Resulting Agency Comment Spec In Lab Anup Hawkins MD URINE ORDERABLES Performing Organization Address [facility] Co de Phone Number CERNER MILLENNIUM * (ABNORMAL) Calcium, urine, 24 hour (03/23/2012 10:06 AM EDT) Ca Concentration, U24 0.5 mg/dL CERNER MILLENNIUM Calcium, 24 Hour Urine 19.0(L) 50.0 - 300.0 mg/24hr CERNER MILLENNIUM Comment:Reference Range: 50. 0-300.0 mg/24 hour based on diet. Urine specimen (specimen) 03/23/2012 10:06 AM EDT 03/23/2012 10:06 AM EDT Narrative Resulting Agency Comment Spec In Lab Anup Hawkins MD URINE ORDERABLES Performing Organization Address City/[facility] Co de Phone Number CERNER MILLENNIUM * Creatinine, urine, 24 hour (03/23/2012 10:06 AM EDT) Cre Concentration, U24 38 mg/dL CERNER MILLENNIUM Creatinine, 24 Hour Urine 1.44 0.80 - 1.90 gm/24hr CERNER MILLENNIUM Urine specimen (specimen) 03/23/2012 10:06 AM EDT 03/23/2012 10:06 AM EDT Narrative Resulting Agency Comment Spec In Lab Anup Hawkins MD URINE ORDERABLES Performing Organization Address City/[facility]/ZIP Co de Phone Number CERSHANNAN HUERTAENNIUM * (ABNORMAL) Creatinine Clearance, urine , 24 hour (03/23/2012 10:06 AM EDT) Creatinine Clearance, 24 Hour Urine 59(L) 90 - 139 mL/min CERNER MILLENNIUM Cre Concentration, U24 38 mg/dL CERNER MILLENNIUM Creatinine, 24 Hour Urine 1.44 0.80 - 1.90 gm/24hr CERNER MILLENNIUM Urine specimen (specimen) 03/23/2012 10:06 AM EDT 03/23/2012 10:06 AM EDT Narrative Resulting Agency Comment Spec In Lab Anup Hawkins MD URINE ORDERABLES Performing Organization Address [facility] Co de Phone Number CERSHANNAN HUERTAENNIUM * (ABNORMAL) Protein, urine, 24 hour (03/23/2012 10:06 AM EDT) Protein Concentration, U24 82(H) <=80 mg/dL CERNER MILLENNIUM Protein, 24 Hour Urine 3.12(H) <=0.15 gm/24hr CERNER MILLENNIUM Urine specimen (specimen) 03/23/2012 10:06 AM EDT 03/23/2012 10:06 AM EDT Narrative Resulting Agency Comment Spec In Lab Anup Hawkins MD URINE ORDERABLES Performing Organization Address City/[facility] Co de Phone Number BUSHRA HUERTAENNIUM * BK QUANT URINE RESULT (03/23/2012 9:22 AM EDT) BKV Urine Result Not Detected [facility] MILLENNIUM BKV Urine Interp BK Virus Urine Result [...] DNA isolated from urine was performed using [employer] BKV(ASR) reagents and the Applied [employer] Populi 7500 Fast Real-Time PCR System. In addition, the PCR product sequence is confirmed using physical properties (melt curve analysis). This test was developed and its performance determined by the [facility]. It has not been cleared or approved by the U.S. Food and Drug Administration. This test is used for clinical purposes and should not be considered investigational or for research purposes. The Molecular Pathology Laboratory is certified by the Clinical Laboratory Improvement Act of 1988 and as such is allowed to perform high complexity clinical testing. [facility] Comment: [VERIFIED DATE]03.24.12 Verified By:Keli Cohen (Electronic Signature) Urine specimen (specimen) 03/23/2012 9:22 AM EDT 03/23/2012 10:18 AM EDT Narrative Resulting Agency Comment Spec In Lab Anup Hawkins MD HEMATOLOGY ORDERA BLES Performing Organization Address [facility] Co de Phone Number [id number] * Phosphorus, urine, random (03/23/2012 9:22 AM EDT) Phosphorus, Urine 32.8 mg/dL [id number] Urine specimen (specimen) 03/23/2012 9:22 AM EDT 03/23/2012 9:26 AM EDT Narrative Resulting Agency Comment Spec In Lab Anup Hakwins MD URINE ORDERABLES Performing Organization Address [facility] Co de Phone Number [id number] * Calcium Creatinine Ratio, random urine (03/23/2012 9:22 AM EDT) Calcium, Urine 0.5 mg/dL CODIPA R MILLENNIUM Creatinine, Urine 80 mg/dL CERNER MILLENNIUM Calcium / Creatinine Ratio, Urine 0.01 ratio CERNER MILLENNIUM Urine specimen (specimen) 03/23/2012 9:22 AM EDT 03/23/2012 9:26 AM EDT Narrative Resulting Agency Comment Spec In Lab Anup Hawkins MD URINE ORDERABLES Performing Organization Address [facility]/ZIP Co de Phone Number CERNER MILLENNIUM * (ABNORMAL) Urinalysis with microscopic (03/23/2012 9:22 AM EDT) Glucose, Urine Dipstick Negative Negative [...] Urine Dipstick Clear Clear CERNER MILLENNIUM Specific [place] Urine Automated 1.011 1.002 - 1.030 CERNER MILLENNIUM Color, Urine Dipstick Yellow Yellow CERNER MILLENNIUM RBC, Urine 2 0 - 3 /HPF CERNER MILLENNIUM WBC, Urine 1 0 - 3 /HPF CERNER MILLENNIUM Squamous Epithelial Cells, Urine 1 <=4 /HPF CERNER MILLENNIUM Urine specimen (specimen) 03/23/2012 9:22 AM EDT 03/23/2012 9:26 AM EDT Narrative Resulting Agency Comment Spec In Lab nAup Hawkins MD URINE ORDERABLES CERNER MILLENNIUM * (ABNORMAL) DIFFERENTIAL, AUTOMATED (03/23/2012 9:04 AM EDT) Neutrophil % 69.5 34.0 - 71.0 % CERNER MILLENNIUM Neutrophil Absolute 3.64 1.50 - 6.30 x10(3)/mc L CERNER MILLENNIUM Lymph % 18.5(L) 19.0 - 53.0 % CERNER MILLENNIUM Lymphocytes Abs 1.0 1.0 - 3.6 x10(3)/mc L CERNER MILLENNIUM Monocyte % 8.2 4.0 - 13.0 % CERNER MILLENNIUM Monocyte Abs 0.4 0.2 - 1.0 x10(3)/mc L CERNER MILLENNIUM Eos % 3.4 0.0 - 7.0 % CERNER MILLENNIUM Eosinophils Abs 0.2 0.0 - 0.5 x10(3)/mc L CERNER MILLENNIUM [...] Absolute 0.00 0.00 - 0.05 x10(3)/mc L [facility] MILLEN[facility]UM Blood specimen (specimen) 03/23/2012 9:04 AM EDT 03/23/2012 9:09 AM EDT Anup Hawkins MD HEMATOLOGY ORDERA BLES [facility] * VIT D Total Evaluation (03/23/2012 9:04 AM EDT) Vitamin D Total 25 OH 41 30 - 100 ng/mL CERNER MILLENNIUM Comment: Deficient <10 ng/mL Insufficient 10 to [...] D concentration is reported. Blood specimen (specimen) 03/23/2012 9:04 AM EDT 03/23/2012 9:09 AM EDT Narrative Resulting Agency Comment Spec In Lab Anup Hawkins MD CHEMISTRY ORDERAB LES Performing Organization Address City/[facility] Co de Phone Number [facility] [email or web address] * 1,25-dihydroxycholecalciferol (03/23/2012 9:04 AM EDT) Vit D 1,25 Dihydroxy (NOVEMBER) 32 18 - 64 pg/mL CERNER MILLENNIUM Comment: Test Performed by: [place] [address] Local Combination Truck Driver: Herber Tomas III, M.D. Blood specimen (specimen) 03/23/2012 9:04 AM EDT 03/23/2012 10:59 AM EDT Narrative Resulting Agency Comment Spec In Lab Anup Hawkins MD LAB SEND OUT ORDE RABLES Performing Organization Address [facility] Co de Phone Number ZerplySHANNAN [employer]tonMediaIUM * PTH (03/23/2012 9:04 AM EDT) Parathyroid Hormone 59 15 - 65 pg/mL CERNER MILLENNIUM Blood specimen (specimen) 03/23/2012 9:04 AM EDT 03/23/2012 9:09 AM EDT Narrative Resulting Agency Comment Spec In Lab Anup Hawkins MD CHEMISTRY ORDERAB LES Performing Organization Address City/[facility] Co de Phone Number [facility] Pro[employer]MediaIUM * Tacrolimus level (03/23/2012 9:04 AM EDT) Tacrolimus 6.5 ng/mL CERNER MILLENNIUM Comment:Trough therapeutic: 5-15 ng/mL Blood specimen (specimen) 03/23/2012 9:04 AM EDT 03/23/2012 11:48 AM EDT Narrative Resulting Agency Comment Spec In Lab Anup Hawkins MD CHEMISTRY ORDERAB LES Performing Organization Address City/[facility] Co de Phone Number CERSHANNAN SIMONIUM * Uric acid (03/23/2012 9:04 AM EDT) Uric Acid 5.6 3.5 - 8.5 mg/dL CERNER MILLENNIUM Blood specimen (specimen) 03/23/2012 9:04 AM EDT 03/23/2012 9:09 AM EDT Narrative Resulting Agency Comment Spec In Lab Anup Hawkins MD CHEMISTRY ORDERAB LES Performing Organization Address [facility] Co de Phone Number [facility] BRADLEYENNIUM * Phosphorus (03/23/2012 9:04 AM EDT) Phosphorus 2.9 2.5 - 4.5 mg/dL [facility] MILLENNIUM Blood specimen (specimen) 03/23/2012 9:04 AM EDT 03/23/2012 9:09 AM EDT Narrative Resulting Agency Comment Spec In Lab Anup Hawkins MD CHEMISTRY ORDERAB LES Performing Organization Address City/[facility] Co de Phone Number CERSHANNAN HUERTAENNIUM * Magnesium (03/23/2012 9:04 AM EDT) Magnesium 0.80 0.69 - 1.07 mmol/L CERNER MILLENNIUM Blood specimen (specimen) 03/23/2012 9:04 AM EDT 03/23/2012 9:09 AM EDT Narrative Resulting Agency Comment Spec In Lab Anup Hawkins MD CHEMISTRY ORDERAB LES Performing Organization Address City/[facility] Co de Phone Number CERSHANNAN HUERTAENNIUM * (ABNORMAL) Lipid panel (fasting) (03/23/2012 9:04 AM EDT) [facility] Signature Cholesterol, Total 158 <=199 mg/dL CERNER MILLENNIUM Comment: Recommendations of the NCEP Adult Treatment Panel for the following risk cutoff thresholds for the [place] population: Desirable: <200 mg/dL Borderline High: 200-239 mg/dL High: > or = 240 mg/dL Triglyceride 94 <=149 mg/dL CERNER MILLENNIUM Comment: Reference Range: Normal triglycerides: ??<150 mg/dL Borderline high: ??150-199 mg/dL High: ??200-499 mg/dL Very high: ??>op=017 mg/dL RAYMOND 2001; 285(19):[phone] HDL Cholesterol 38(L) >=40 mg/dL CER NER MILLENNIUM Comment: Reference range: ??Low HDL: ?? < 40 mg/dL ??Normal: ?40-60 mg/dL ??Desirable: > 60 mg/dL RAYMOND 2001; 285(19):[phone] LDL Cholesterol 101(H) <=99 mg/dL CER NER MILLENNIUM Comment: Reference range: ?? Optimal: ?<100 mg/dL ?? Near Optimal/Above Optimal: ?? 100-129 mg/dL ?? Borderline high: ?130-159 mg/dL ?? High: ? 160-189 mg/dL ?? Very high: ?>of=459 mg/dL RAYMOND 2001: 285(19):9144-4435 Cholesterol/HDL Ratio 4.2 ratio CERNER MILLENNIUM Comment: A Cholesterol to HDL ratio below 4:1 is desirable. ??Studies suggest that increased CAD risk occurs at ratios above 5 for females and above 6 for men. ? [place] Heart Association ??(http://www.americanheart.org) ? Marizol Int Med, 1994; 121:641 ? AM J Med, 1998; 105(1A):48S Blood specimen (specimen) 03/23/2012 9:04 AM EDT 03/23/2012 9:09 AM EDT Narrative Resulting Agency Comment Spec In Lab Anup Hawkins MD CHEMISTRY ORDERAB LES CERNER MILLENNIUM * Reticulocyte Count (03/23/2012 9:04 AM EDT) Reticulocyte % 1.3 0.5 - 2.4 % CERNER MILLENNIUM Retic Abs # 0.050 0.027 - 0.095 x10(6)/mcL CERNER MILLENNIUM Immature Retic% 4.1 2.3 - 15.9 % CERNER MILLENNIUM Reticulated Hgb 33.6 28.5 - 38.9 pg CERNER MILLENNIUM Immature Plt % 1.8 0.0 - 7.4 % CERNER MILLENNIUM Blood specimen (specimen) 03/23/2012 9:04 AM EDT 03/23/2012 9:09 AM EDT Narrative Resulting Agency Comment Spec In Lab Anup Hawkins MD HEMATOLOGY ORDERA BLES Performing Organization Address [facility] Co de Phone Number CERNER MILLENNIUM * (ABNORMAL) CBC (with Diff) (03/23/2012 9:04 AM EDT) White Blood Cell 5.2 4.0 - 10.0 x10(3)/mc L CERNER MILLENNIUM Red Blood Cell 3.97(L) 4.63 - 6.08 x10(6)/mc L CERNER MILLENNIUM Hemoglobin 11.5(L) 13.7 - 17.5 gm/dL CERNER MILLENNIUM Hematocrit 34.6(L) 40.0 - 51.0 % CERNER MILLENNIUM Mean Cell Volume 87.2 79.0 - 92.0 fL CERNER MILLENNIUM Mean Cell Hemoglobin 29.0 25.6 - 32.2 pg CERNER MILLENNIUM Mean Cell Hemoglobin Concentration 33.2 32.0 - 36.5 gm/dL CERNER MILLENNIUM Platelet 219 145 - 370 x10(3)/mc L CERNER MILLENNIUM RDW Standard Deviation 44.0 35.0 - 46.0 fL CERNER MILLENNIUM RDW coefficient of variation 13.8 10.9 - 14.4 % CERNER MILLENNIUM Mean Platelet Volume 9.0 9.0 - 12.0 fL CERNER MILLENNIUM Blood specimen (specimen) 03/23/2012 9:04 AM EDT 03/23/2012 9:09 AM EDT Narrative Resulting Agency Comment Spec In Lab Anup Hawkins MD HEMATOLOGY ORDERA MARISOL CERNER MILLENNIUM * (ABNORMAL) CMP w/fasting Glucose (03/23/2012 9:04 AM EDT) Glucose Fasting 102(H) 65 - 99 mg/dL CERNER MILLENNIUM Comment: [...] of Diabetes Mellitus, Position Statement from the [place] Diabetes Association. ??Diabetes Care, Volume 33, Supplement 1, Jul 2009 Blood Urea Nitrogen 33(H) 10 - 20 mg/dL CERNER MILLENNIUM Creatinine 1.70(H) 0.80 - 1.50 mg/dL CERNER MILLENNIUM Comment: Please note that the pediatric reference intervals supplied above were not validated at [facility]. Results from pediatric patients should be interpreted in conjunction to the patient's age, height and muscle mass. Sodium 139 135 - 145 mmol/L CERNER MILLENNIUM Potassium 4.1 3.5 - 5.0 mmol/L CERNER MILLENNIUM Comment: [...] - 10.5 mg/dL CERNER MILLENNIUM Protein, Total 6.9 6.4 - 8.3 gm/dL CERNER MILLENNIUM Albumin 4.4 3.2 - 5.2 gm/dL CERNER MILLENNIUM Aspartate Aminotransferase 21 0 - 39 unit/L CERNER MILLENNIUM Alanine Aminotransferase 12 0 - 55 unit/L CERNER MILLENNIUM Alkaline Phosphatase 89 40 - 120 unit/L CERNER MILLENNIUM Bilirubin, Total 0.6 0.2 - 1.3 mg/dL CERNER MILLENNIUM Bilirubin, Direct 0.2 0.0 - 0.3 mg/dL CERNER MILLENNIUM Est Glomerular Filtration Rate 43(L) >=60 CERNER MILLENNIUM Comment: The National Kidney [...] J Am Soc Nephrol;6:1963-72. Blood specimen (specimen) 03/23/2012 9:04 AM EDT 03/23/2012 9:09 AM EDT Narrative Resulting Agency Comment Spec In Lab Anup Hawkins MD CHEMISTRY ORDERAB LES Performing Organization Address City/State/[facility] Co ms Phone Number [facility] documented in this encounter Visit Diagnoses Diagnosis Transplanted kidney Kidney replaced by transplant Need for prophylactic immunotherapy documented in this encounter Care Teams Care Worker Relationship Specialty Start Date End Date Carroll Fuentes DO [address] [place] [address] PCP - General 09/23/11 10/20/22 documented as of this encounter
--- OUTSIDE RECORDS SUMMARY | 2024-04-22 11:16 | XMS_ITS | Encounter Summary ---
Author Organization [facility] Address [facility] [place] [address] Care Team Providers Care Sterile Process Tech Name Role Phone Carroll Fuentes DO Primary Care Provider [phone] Reason for Visit * Reason Comments Follow Up Surgery R shoulder Encounter Details Date Type Department Care Team (Late st Contact Info) Description 04/29/2012 10:00 AM EDT Office [place] [address] Sabrina Sanchez MD [facility] [place] [place] [address] BCC (basal cell carcinoma of skin) (Primary [...] as of this encounter Progress Notes * Sabrina Sanchez MD - 04/29/2012 9:51 AM EDT PLASTIC SURGERY POST OP NOTE Primary Care Physician: CARROLL FUENTES DO Reason for visit: F/U status post procedure Date of surgery: 04/19/12 Procedure(s): BCC right shoulder Procedure(s): REPAIR INTERMEDIATE WOUND, (NO HANDS OR FEET) 2.6 TO 7.5CM, UPPER EXTREMITY EXC MALIGNANT LESION, MICHAEL > 4.0CM, TRUNK Complications: None reported Interval History: He is doing well and denies any concerns. Examination: Gen: WDWN, NAD Neuro: Alert, oriented, follows, Ambulates. Extrem: Right shoulder Incision: CDI, healing well. No collection, no erythema, no evidence of cellulitis. ---Pathologic Diagnosis--- A - Skin, right shoulder, excision: Basal cell carcinoma; the margins are clear in these sections (see Comment). B - Skin, right shoulder, 2 o'clock ink old margin: There is no evidence of basal cell carcinoma in these sections. C - Skin, right shoulder, 4 o'clock for frozen section: There is no evidence of basal cell carcinoma in these sections. D - Skin, right shoulder, 7 o'clock for frozen section: There is no evidence of basal cell carcinoma in these sections. E - Skin, right shoulder, 10 o'clock for frozen section: There is no evidence of basal cell carcinoma in these sections. Impression: Adama Ram is a 51 y.o. male was seen today for follow-up after the above procedure. Please see the operative note for details. He is doing well without complaints. Plan: 1. F/U PRN 2. Keep area elevated 3. Limit activity and heavy lifting for 1 month 4. Keep wound clean and dry 5. Pain meds: PRN 6. Return to all pre-op meds IKaruna, am acting as scribe for Dr Sanchez. All work documented was performed by Dr Sanchez. ???I performed the above scribed service and agree with the accuracy of the note?? SABRINA SANCHEZ MD documented in this encounter Plan of Treatment Not on file documented as of this encounter Visit Diagnoses Diagnosis BCC (basal cell carcinoma of skin)- Primary Basal cell carcinoma of skin, site unspecified documented in this encounter Care Teams Sterile Process Tech Relationship Specialty Start Date End Date Carroll Fuentes DO [address] [place] [id number] PCP - General 09/23/11 10/20/22 documented as of this encounter
--- OUTSIDE RECORDS SUMMARY | 2024-04-22 11:16 | XMS_ITS | Encounter Summary ---
Author Organization [facility] Address [facility] [place] [address] Care Team Providers Care Licensing Director Name Role Phone Carroll Fuentes DO Primary Care Provider [phone] Reason for Visit * Reason Comments Medication Refill Encounter Details Date Type Department Care Team (Late st Contact Info) Description 04/18/2012 [place] [address] Alfonzo Miles MD [facility] [place] [address] Social History Tobacco Use Types Packs/Day Years [...] on filedocumented in this encounter Care Teams Licensing Director Relationship Specialty Start Date End Date Carroll Fuentes DO [address] [place] [address] PCP - General 09/23/11 10/20/22 documented as of this encounter
--- OUTSIDE RECORDS SUMMARY | 2024-04-22 11:16 | XMS_ITS | Encounter Summary ---
Author Organization [facility] Address [facility] [place] [address] Care Team Providers Care Field Installation Technician Name Role Phone AlfredoCarroll allison Primary Care Provider [phone] Encounter Details Date Type Department Care Team (Late st Contact Info) Description 03/23/2012 Orders Only [place] [address] Anup Hawkins MD [facility] [place] [address] Transplanted kidney; Need for prophylactic immunotherapy Social [...] of this encounter Plan of Treatment Scheduled Orders Name Type Priority Associated Diagnoses Orde r Schedule BKV Quant Urine Microbiology STAT Transplanted kidney Need for prophylactic immunotherapy Expected: 03/23/2012 (Approximate), Expires: 09/19/2012 documented as of this encounter Results * Uric acid, urine, 24 hour (03/23/2012 10:06 AM EDT) U24 Uric Conc 8.3 mg/dL [facility] MILLENNIUM Uric Acid, 24 Hour Urine 0.32 0.25 - 0.80 gm/24hr [facility] MILLENNIUM Urine specimen (specimen) 03/23/2012 10:06 AM EDT 03/23/2012 10:06 AM EDT Narrative Resulting Agency Comment Spec In Lab Anup Hawkins MD URINE ORDERABLES Performing Organization Address City/[facility]/ZIP Co de Phone Number CERNER MILLENNIUM * Phosphorus, urine, 24 hour (03/23/2012 10:06 AM EDT) Phosphorus Concentration, U24 20.9 mg/dL [facility] MILLENNIUM Phosphorus, 24 Hour Urine 0.8 0.4 - 1.3 gm/24hr [facility] MILLENNIUM Urine specimen (specimen) 03/23/2012 10:06 AM EDT 03/23/2012 10:06 AM EDT Narrative Resulting Agency Comment Spec In Lab Anup Hawkins MD URINE ORDERABLES Performing Organization Address [facility] de Phone Number CERNER MILLENNIUM * (ABNORMAL) [...] Hawkins MD URINE ORDERABLES Performing Organization Address [facility] de Phone Number [facility] MILLENNIUM * Creatinine, urine, 24 hour (03/23/2012 10:06 AM EDT) Cre Concentration, U24 38 mg/dL CERNER MILLENNIUM Creatinine, 24 Hour Urine 1.44 0.80 - 1.90 gm/24hr [facility] MILLENNIUM Urine specimen (specimen) 03/23/2012 10:06 AM EDT 03/23/2012 10:06 AM EDT Narrative Resulting Agency Comment Spec In Lab Anup Hawkins MD URINE ORDERABLES Performing Organization Address [facility] Co de Phone Number CERNER MILLENNIUM * (ABNORMAL) Creatinine Clearance, urine , 24 [...] Hawkins MD URINE ORDERABLES Performing Organization Address [facility] de Phone Number CERNER MILLENNIUM * (ABNORMAL) Protein, urine, 24 hour (03/23/2012 10:06 AM EDT) Protein Concentration, U24 82(H) <=80 mg/dL [facility] MILLENNIUM Protein, 24 Hour Urine 3.12(H) <=0.15 gm/24hr [facility] MILLENNIUM Urine specimen (specimen) 03/23/2012 10:06 AM EDT 03/23/2012 10:06 AM EDT Narrative Resulting Agency Comment Spec In Lab Anup Hawkins MD URINE ORDERABLES Performing Organization Address City/[facility] Co de Phone Number [facility]ERSH[facility]N MILLENNIUM * Phosphorus, urine, random (03/23/2012 9:22 AM EDT) Phosphorus, Urine 32.8 mg/dL C[facility]ER MILLENNIUM Urine specimen (specimen) 03/23/2012 9:22 AM EDT 03/23/2012 9:26 AM EDT Narrative Resulting Agency Comment Spec In Lab Anup Hawkins MD URINE ORDERABLES [facility] MILLENNIUM * Calcium Creatinine Ratio, random urine (03/23/2012 9:22 AM EDT) Calcium, Urine 0.5 mg/dL CERNE R MILLENNIUM Creatinine, Urine 80 mg/dL CERNER MILLENNIUM Calcium / Creatinine Ratio, Urine 0.01 ratio [facility] MILLENNIUM Urine specimen (specimen) 03/23/2012 9:22 AM EDT 03/23/2012 9:26 AM EDT Narrative Resulting Agency Comment Spec In Lab Anup Hawkins MD URINE ORDERABLES Performing Organization Address City/[facility]/ZIP Co de Phone Number CERNER MILLENNIUM [...] Urine Dipstick Clear Clear CERNER MILLENNIUM Specific Sundance Urine Automated 1.011 1.002 - 1.030 CERNER [...] Hawkins MD URINE ORDERABLES Performing Organization Address [facility] Co de Phone Number [facility] * VIT D Total Evaluation (03/23/2012 9:04 AM EDT) Vitamin D Total 25 OH 41 30 - 100 ng/mL [facility] Comment: Deficient <10 ng/mL Insufficient 10 [...] MD CHEMISTRY ORDERAB LES Performing Organization Address [facility] de Phone Number [facility] * 1,25-dihydroxycholecalciferol (03/23/2012 9:04 AM EDT) Vit D 1,25 Dihydroxy (NOVEMBER) 32 18 - 64 pg/mL [facility] Comment: Test Performed by: [facility] - [address] [address] Social Media Developer: Herber Tomas III, M.D. Blood specimen (specimen) 03/23/2012 9:04 AM EDT 03/23/2012 10:59 AM EDT Narrative Resulting Agency Comment Spec In Lab Anup Hawkins MD LAB SEND OUT ORDE RABLES [facility] * PTH (03/23/2012 9:04 AM EDT) Parathyroid Hormone 59 15 - 65 pg/mL [facility] MILL[facility]NIUM Blood specimen (specimen) 03/23/2012 9:04 AM EDT 03/23/2012 9:09 AM EDT Narrative Resulting Agency Comment Spec In Lab Anup Hawkins MD CHEMISTRY ORDERAB LES [facility] * Tacrolimus level (03/23/2012 9:04 AM EDT) Tacrolimus 6.5 ng/mL [facility] Comment:Trough therapeutic: 5-15 ng/mL Blood specimen (specimen) 03/23/2012 9:04 AM EDT 03/23/2012 11:48 AM EDT Narrative Resulting Agency Comment Spec In Lab Anup Hawkins MD CHEMISTRY ORDERAB LES [facility] * Uric acid (03/23/2012 9:04 AM EDT) Uric Acid 5.6 3.5 - 8.5 mg/dL [facility] Blood specimen (specimen) 03/23/2012 9:04 AM EDT 03/23/2012 9:09 AM EDT Narrative Resulting Agency Comment Spec In Lab Anup Hawkins MD CHEMISTRY ORDERAB LES [facility]LEY[facility] * Phosphorus (03/23/2012 9:04 AM EDT) Phosphorus 2.9 2.5 - 4.5 mg/dL [facility] MILL[facility] Blood specimen (specimen) 03/23/2012 9:04 AM EDT 03/23/2012 9:09 AM EDT Narrative Resulting Agency Comment Spec In Lab Anup Hawkins MD CHEMISTRY ORDERAB LES [facility] * Magnesium (03/23/2012 9:04 AM EDT) Magnesium 0.80 0.69 - 1.07 mmol/L [facility] Blood specimen (specimen) 03/23/2012 9:04 AM EDT 03/23/2012 9:09 AM EDT Narrative Resulting Agency Comment Spec In Lab Anup Hawkins MD CHEMISTRY ORDERAB LES Performing Organization Address City/[facility]/ZIP Co de Phone Number [facility] * (ABNORMAL) Lipid panel (fasting) (03/23/2012 9:04 AM EDT) Cholesterol, Total 158 <=199 mg/dL [facility] Comment: Recommendations of the NCEP Adult Treatment Panel for the following risk cutoff thresholds for the [place] population: Desirable: <200 mg/dL Borderline High: 200-239 mg/dL High: > or = 240 mg/dL Triglyceride 94 <=149 mg/dL [facility] Comment: Reference Range: Normal triglycerides: ??<150 mg/dL Borderline high: ??150-199 mg/dL High: ??200-499 mg/dL Very high: ??>gt=452 mg/dL RAYMOND 2001; 285(19):2524-8926 HDL Cholesterol 38(L) >=40 mg/dL [facility] Comment: Reference range: ??Low HDL: ?? < 40 mg/dL ??Normal: ?40-60 mg/dL ??Desirable: > 60 mg/dL RAYMOND 2001; 285(19):0121-8329 LDL Cholesterol 101(H) <=99 mg/dL [facility] Comment: Reference range: ?? Optimal: ?<100 mg/dL ?? Near Optimal/Above Optimal: ?? 100-129 mg/dL ?? Borderline high: ?130-159 mg/dL ?? High: ? 160-189 mg/dL ?? Very high: ?>jg=222 mg/dL RAYMOND 2001: 285(19):1494-3357 Cholesterol/HDL Ratio 4.2 ratio [facility]ILL[facility]NI[facility] Comment: A Cholesterol to HDL ratio below 4:1 is desirable. ??Studies suggest that increased CAD risk occurs at ratios above 5 for females and above 6 for men. ? [place] Heart Association ??(http://www.americanheart.org) ? Marizol Int Med, 1994; 121:641 ? AM J Med, 1998; 105(1A):48S Blood specimen (specimen) 03/23/2012 9:04 AM EDT 03/23/2012 9:09 AM EDT Narrative Resulting Agency Comment Spec In Lab Anup Hawkins MD CHEMISTRY ORDERAB LES Performing Organization Address [facility] Co de Phone Number [facility] HU[facility]NI[facility] * Reticulocyte Count (03/23/2012 9:04 AM EDT) [...] MD HEMATOLOGY ORDERA BLES Performing Organization Address [facility]/ZIP Co de Phone Number [facility] HUERTAENNI[facility] * (ABNORMAL) CBC (with Diff) (03/23/2012 9:04 AM EDT) [facility] White Blood Cell 5.2 4.0 - 10.0 x10(3)/mc L [place] Red Blood Cell 3.97(L) 4.63 - 6.08 x10(6)/mc L [facility] Hemoglobin 11.5(L) 13.7 - 17.5 gm/dL [facility] Hematocrit 34.6(L) 40.0 - 51.0 % [facility] Mean Cell Volume 87.2 79.0 - 92.0 fL [facility] Mean Cell Hemoglobin 29.0 25.6 - 32.2 pg [facility] Mean Cell Hemoglobin Concentration 33.2 32.0 - 36.5 gm/dL [facility] MILLENNIUM Platelet 219 145 - 370 x10(3)/mc L [facility] RDW Standard Deviation 44.0 35.0 - 46.0 fL [facility] MILLENNIUM RDW coefficient of variation 13.8 10.9 - 14.4 % [facility] Mean Platelet Volume 9.0 9.0 - 12.0 fL [facility] MILLENNIUM Blood specimen (specimen) 03/23/2012 9:04 AM EDT 03/23/2012 9:09 AM EDT Narrative Resulting Agency Comment Spec In Lab Anup Hawkins MD HEMATOLOGY VJ DAMON [facility] * (ABNORMAL) CMP w/fasting Glucose (03/23/2012 9:04 AM EDT) [facility] Glucose Fasting 102(H) 65 - 99 mg/dL [facility] Comment: ?Fasting* Glucose Interpretive Criteria Normal ?65-99 [...] of Diabetes Mellitus, Position Statement from the [place] Diabetes Association. ??Diabetes Care, Volume 33, Supplement 1, Jul 2009 Blood Urea Nitrogen 33(H) 10 - 20 mg/dL [facility] MILLENNIUM Creatinine 1.70(H) 0.80 - 1.50 mg/dL [facility]ILL[facility]NI[facility] Comment: Please note that the pediatric reference intervals supplied above were not validated at [facility]. Results from pediatric patients should be interpreted [...] MD CHEMISTRY ORDERAB LES Performing Organization Address City/State/[facility] [place] Phone Number [facility] documented in this encounter Visit Diagnoses Diagnosis Transplanted kidney Kidney replaced by transplant Need for prophylactic immunotherapy documented in this encounter Care Teams Field Installation Technician Relationship Specialty Start Date End Date Carroll Fuentes DO [address] [place] [address] PCP - General 09/23/11 10/20/22 documented as of this encounter
--- OUTSIDE RECORDS SUMMARY | 2024-04-22 11:16 | XMS_ITS | Encounter Summary ---
Author Organization [facility] Address [facility] [place] [address] Care Team Providers Care Formal Waiter/Waitress Name Role Phone AlfredoCarroll allison Primary Care Provider [phone] Encounter Details Date Type Department Care Team (Latest Contact Info) Description 10/21/2012 7:10 PM EDT - 10/21/2012 11:59 PM EDT [place] [address] Anup Hawkins MD [facility] [place] [address] Discharge Disposition: Home Social History Tobacco Use [...] Date/Time Associated Diagnosis Comments TACROLIMUS LEVEL Routine 10/21/2012 12:2 0 PM EDT documented in this encounter Results * Tacrolimus level (10/21/2012 12:20 PM EDT) Tacrolimus <3.0 ng/mL [facility] Comment:Trough therapeutic: 5-15 ng/mL Blood specimen (specimen) 10/21/2012 12:20 PM EDT 10/24/2012 8:19 AM EDT Narrative Resulting Agency Comment Spec In Lab Anup Hawkins MD CHEMISTRY ORDERAB LES [facility] MILLENNIUM documented in this encounter Visit Diagnoses Not on filedocumented in this encounter Care Teams Formal Waiter/Waitress Relationship Specialty Start Date End Date Carroll Fuentes DO [address] [facility] [address] [place] [address] PCP - General 09/23/11 10/20/22 documented as of this encounter
--- OUTSIDE RECORDS SUMMARY | 2024-04-22 11:16 | XMS_ITS | Encounter Summary ---
Author Organization [facility] Address [facility] [place] [address] Care Team Providers Care Tax Examining Technician Name Role Phone AlfredoCarroll allison Primary Care Provider [phone] Encounter Details Date Type Department Care Team (Latest Contact Info) Description 04/22/2012 7:26 PM EDT - 04/22/2012 11:59 PM EDT Hospital [place] [address] Anup Hawkins MD [facility] [place] [address] Discharge Disposition: Home Social History Tobacco Use [...] Date/Time Associated Diagnosis Comments TACROLIMUS LEVEL Routine 04/22/2012 1:30 PM EDT documented in this encounter Results * TACROLIMUS LEVEL (04/22/2012 1:30 PM EDT) Tacrolimus 4.6 ng/mL [facility] Comment:Trough therapeutic: 5-15 ng/mL Blood specimen (specimen) 04/22/2012 1:30 PM EDT 04/25/2012 8:22 AM EDT Narrative Resulting Agency Comment Spec In Lab Anup Hawkins MD CHEMISTRY ORDERAB LES Performing Organization Address City/State/[facility] Co de Phone Number [facility] documented in this encounter Visit Diagnoses Not on filedocumented in this encounter Care Teams Tax Examining Technician Relationship Specialty Start Date End Date Carroll Fuentes DO [address] [place] [address] [address] [place] [address] PCP - General 09/23/11 10/20/22 documented as of this encounter
--- OUTSIDE RECORDS SUMMARY | 2024-04-22 11:16 | XMS_ITS | Encounter Summary ---
Author Organization [facility] Address [facility] [place] [address] Care Team Providers Care Relays Draftsperson Name Role Phone Carroll Fuentes DO Primary Care Provider Reason for Visit * Reason Comments Medication Refill Encounter Details Date Type Department Care Team (Late st Contact Info) Description 06/29/2012 Refill [place] [address] Anup Hawkins MD [facility] [place] [address] HTN (hypertension) (Primary Dx) Social History Tobacco [...] hypertension documented in this encounter Care Teams Relays Draftsperson Relationship Specialty Start Date End Date Carroll Fuentes DO [address] [place] [address] PCP - General 09/23/11 10/20/22 documented as of this encounter
--- OUTSIDE RECORDS SUMMARY | 2024-04-22 11:17 | XMS_ITS | Encounter Summary ---
[place] [address] Care Team Providers Care Church Worker Name Role Phone Abhijeet Laughlin MD Primary Care Provider [phone] Encounter Details Date Type Department Care Team (Late st Contact Info) Description 06/26/2011 External Results [place] [address] Social History Tobacco Use Types Packs/Day Years [...] Date/Time Associated Diagnosis Comments LAB SCAN Routine 06/23/2011 documented in this encounter Results * Scan Doc: Lab (06/23/2011) Historical Provider MD GREENE MGR SCAN EX T ORDR/RSLT documented in this encounter Visit Diagnoses Not on filedocumented in this encounter Care Teams Church Worker Relationship Specialty Start Date End Date Abhijeet Laughlin MD [address] [place] [address] PCP - General 06/03/10 07/20/11 documented as of this encounter
--- OUTSIDE RECORDS SUMMARY | 2024-04-22 11:17 | XMS_ITS | Encounter Summary ---
[place] [address] Care Team Providers Care Lead Technical Architect Name Role Phone Carroll Fuentes DO Primary Care Provider Encounter Details Date Type Department Care Team (Late st Contact Info) Description 10/07/2011 External Results [place] [address] Social History Tobacco Use Types Packs/Day Years [...] Date/Time Associated Diagnosis Comments LAB SCAN Routine 10/03/2011 documented in this encounter Results * Scan Doc: Lab (10/03/2011) Historical Provider MD GREENE MGR SCAN EX T ORDR/RSLT documented in this encounter Visit Diagnoses Not on filedocumented in this encounter Care Teams Lead Technical Architect Relationship Specialty Start Date End Date Carroll Fuentes DO [address] [place] [address] PCP - General 09/23/11 10/20/22 documented as of this encounter
--- OUTSIDE RECORDS SUMMARY | 2024-04-22 11:17 | XMS_ITS | Encounter Summary ---
Author Organization [facility] Address [facility] [place] [address] Care Team Providers Care Electric Locomotive Firer/Fireman Name Role Phone Unknown Primary Care Provider Unavailabl e Reason for Visit * Reason Onset Date Comments Medication Refill 08/07/2011 Encounter Details Date Type Department Care Team (Late st Contact Info) Description 08/07/2011 Refill [place] [address] Anup Hawkins MD [facility] [place] [address] S/P kidney transplant (Primary Dx) Social History [...] transplant documented in this encounter Care Teams Electric Locomotive Firer/Fireman Relationship Specialty Start Date End Date Unknown None PCP - General 07/21/11 09/22/11 documented as of this encounter
--- OUTSIDE RECORDS SUMMARY | 2024-04-22 11:17 | XMS_ITS | Encounter Summary ---
[place] [address] Care Team Providers Care Distribution Engineering Technologist Name Role Phone Unknown Primary Care Provider Unavailabl e Encounter Details Date Type Department Care Team (Late st Contact Info) Description 09/09/2011 External Results [place] [address] Social History Tobacco Use Types Packs/Day Years [...] Date/Time Associated Diagnosis Comments LAB SCAN Routine 09/04/2011 documented in this encounter Results * Scan Doc: Lab (09/04/2011) Historical Provider MD GREENE MGR SCAN EX T ORDR/RSLT documented in this encounter Visit Diagnoses Not on filedocumented in this encounter Care Teams Distribution Engineering Technologist Relationship Specialty Start Date End Date Unknown None PCP - General 07/21/11 09/22/11 documented as of this encounter
--- OUTSIDE RECORDS SUMMARY | 2024-04-22 11:17 | XMS_ITS | Encounter Summary ---
Author Organization [facility] Address [facility] [place] [address] Care Team Providers Care Garnetter Name Role Phone Unknown Primary Care Provider Unavailabl e Reason for Visit * Reason Onset Date Comments Medication Refill 07/30/2011 Encounter Details Date Type Department Care Team (Late st Contact Info) Description 07/30/2011 Refill [place] [address] Anup Hawkins MD [facility] [place] [address] S/P kidney transplant (Primary Dx) Social History [...] transplant documented in this encounter Care Teams Garnetter Relationship Specialty Start Date End Date Unknown None PCP - General 07/21/11 09/22/11 documented as of this encounter
--- OUTSIDE RECORDS SUMMARY | 2024-04-22 11:17 | XMS_ITS | Encounter Summary ---
Author Organization [facility] Address [facility] [place] [address] Care Team Providers Care Network Intern Name Role Phone Abhijeet Laughlin MD Primary Care Provider [phone] Encounter Details Date Type Department Care Team (Latest Contact Info) Description 12/31/2010 9:13 AM EDT - 12/31/2010 11:59 PM EDT [place] [address] Anup Hawkins MD [facility] [place] [address] Discharge Disposition: Home Social History Tobacco Use Types Packs/Day Years Used Date Smoking Tobacco: Former Cigarettes Q uit: 12/03/2000 Alcohol Use Standard Drinks/Week Comments Not Asked 0 (1 standard drink = 0.6 oz pur e alcohol) Sex and Gender Information Value Date Recorded Sex Assigned at Not on file Gender Identity Not on file Sexual Orientation Not on file documented as of this encounter Medications at Time of Discharge Medication Sig Dispensed Refills Start Date End Date AMOXICILLIN TRIHYDRATE (TRIMOX ORAL) Take 2,000 mg by mouth. 1 hour Prior to dental procedures 05/11/2017 metoprolol tartrate (LOPRESSOR) 50 mg tablet Take 50 mg by mouth 3 times daily. 12/03/2010 10/20/2017 LEVOTHYROXINE SODIUM (LEVOTHYROXINE ORAL) Take 75 mcg by mouth daily. 12/02/2010 09/23/2011 tacrolimus (PROGRAF) 1 mg capsule 2mg in AM and 1mg in PM, PO, as directed 07/24/2010 01/01/2011 hydrALAZINE (APRESOLINE) 50 mg tablet 50 MG = 1 Tablet(s), PO, Twice daily 06/23/2010 06/03/2011 leveTIRAcetam (KEPPRA) 1,000 mg tablet 1000 MG = 1 Tablet(s), PO, Twice daily 04/08/2010 04/14/2011 DILTiazem (CARTIA XT) 120 mg 24 hr capsule 120 MG = 1 Capsule(s), PO, Once daily 04/08/2010 02/15/2012 documented as of this encounter Plan of Treatment Not on file documented as of this encounter Procedures Procedure Name Priority Date/Time Associated Diagnosis Comments DIFFERENTIAL, AUTOMATED STAT 12/31/2010 8:35 AM EDT GREEN TUBE HOLD STAT 12/31/2010 8:35 AM EDT TACROLIMUS LEVEL STAT 12/31/2010 8:35 AM EDT URINALYSIS WITH REFLEX CULTURE STAT 12/31/2010 8:35 AM EDT APTT STAT 12/31/2010 8:35 AM EDT PROTHROMBIN TIME STAT 12/31/2010 8:35 AM EDT RETICULOCYTE COUNT STAT 12/31/2010 8: 35 AM EDT CBC (WITH DIFF) STAT 12/31/2010 8:35 AM EDT URIC ACID STAT 12/31/2010 8:35 AM EDT PHOSPHORUS STAT 12/31/2010 8:35 AM EDT MAGNESIUM STAT 12/31/2010 8:35 AM EDT CHOLESTEROL, TOTAL STAT 12/31/2010 8: 35 AM EDT COMPREHENSIVE METABOLIC PANEL STAT 12/31/2010 8:35 AM EDT documented in this encounter Results * REFLEX LAB-A-DIFF (12/31/2010 8:35 AM EDT) Neutrophil % 58.1 34.0 - 71.0 % CERNER MILLENNIUM Neutrophil Absolute 3.43 1.50 - 6.30 x10(3)/mcL CERNER MILLENNIUM Lymph % 24.6 19.0 - 53.0 % CERNER MILLENNIUM Lymphocytes Abs 1.5 1.0 - 3.6 x10(3)/mcL CERNER MILLENNIUM Monocyte % 12.2 4.0 - 13.0 % CERNER MILLENNIUM Monocyte Abs 0.7 0.2 - 1.0 x10(3)/mcL CERNER MILLENNIUM Eos % 4.4 0.0 - 7.0 % CERNER MILLENNIUM Eosinophils Abs 0.3 0.0 - 0.5 x10(3)/mcL CERNER MILLENNIUM Basophil [...] 0.05 x10(3)/mcL CERNER MILLENNIUM Blood specimen (specimen) 12/31/2010 8:35 AM EDT 12/31/2010 10:23 AM EDT Anup Hawkins MD HEMATOLOGY ORDERA ANDREWS CERSHANNAN HUERTAENNIUM * GREEN TUBE HOLD (12/31/2010 8:35 AM EDT) Green Hold Sample in lab. CERSHANNAN HUERTAENNIUM Blood specimen (specimen) 12/31/2010 8:35 AM EDT 12/31/2010 10:27 AM EDT Anup Hawkins MD CHEMISTRY ORDERAB LES Performing Organization Address City/[facility] Co de Phone Number [facility] * (ABNORMAL) CHOLESTEROL, TOTAL (12/31/2010 8:35 AM EDT) Cholesterol, Total 216(H) <=199 mg/dL [facility]ADLEY[facility] Comment: Recommendations of the NCEP Adult Treatment Panel for the following risk cutoff thresholds for the [place] population: Desirable: <200 mg/dL Borderline High: 200-239 mg/dL High: > or = 240 mg/dL Blood specimen (specimen) 12/31/2010 8:35 AM EDT 12/31/2010 10:22 AM EDT Anup Hawkins MD CHEMISTRY ORDERAB LES Performing Organization Address [facility] Co de Phone Number BUSHRA SIMONIUM * MAGNESIUM (12/31/2010 8:35 AM EDT) Magnesium 0.90 0.69 - 1.07 mmol/L [facility] Blood specimen (specimen) 12/31/2010 8:35 AM EDT 12/31/2010 10:22 AM EDT Anup Hawkins MD CHEMISTRY ORDERAB LES Performing Organization Address [facility] Co de Phone Number [facility] * PHOSPHORUS (12/31/2010 8:35 AM EDT) Phosphorus 3.7 2.5 - 4.5 mg/dL [facility] Blood specimen (specimen) 12/31/2010 8:35 AM EDT 12/31/2010 10:22 AM EDT Anup Hawkins MD CHEMISTRY ORDERAB LES Performing Organization Address City/[facility] Co de Phone Number [facility] * URIC ACID (12/31/2010 8:35 AM EDT) Uric Acid 5.7 3.5 - 8.5 mg/dL CERNER MILLENNIUM Blood specimen (specimen) 12/31/2010 8:35 AM EDT 12/31/2010 10:22 AM EDT Anup Hawkins MD CHEMISTRY ORDERAB LES Performing Organization Address [facility] Co de Phone Number CERSHANNAN SIMONIUM * CBC (WITH DIFF) (12/31/2010 8:35 AM EDT) White Blood Cell 5.9 4.0 - 10.0 x10(3)/mcL CERNER MILLENNIUM Red Blood Cell 5.10 4.63 - 6.08 x10(6)/mcL CERNER MILLENNIUM Hemoglobin 16.1 13.7 - 17.5 gm/dL CERNER MILLENNIUM Hematocrit 45.9 40.0 - 51.0 % CERNER MILLENNIUM Mean Cell Volume 90.0 79.0 - 92.0 fL CERNER MILLENNIUM Mean Cell Hemoglobin 31.6 25.6 - 32.2 pg CERNER MILLENNIUM Mean Cell Hemoglobin Concentration 35.1 32.0 - 36.5 gm/dL CERNER MILLENNIUM Platelet 182 145 - 370 x10(3)/mcL CERNER MILLENNIUM RDW Standard Deviation 45.0 35.0 - 46.0 fL CERNER MILLENNIUM RDW coefficient of variation 13.7 10.9 - 14.4 % CERNER MILLENNIUM Mean Platelet Volume 9.6 9.0 - 12.0 fL CERNER MILLENNIUM Blood specimen (specimen) 12/31/2010 8:35 AM EDT 12/31/2010 10:23 AM EDT Anup Hawkins MD HEMATOLOGY ORDERA BLES Performing Organization Address [facility] Co de Phone Number CERSHANNAN SIMONIUM * RETICULOCYTE COUNT (12/31/2010 8:35 AM EDT) Reticulocyte % 0.9 0.5 - 2.4 % CERNER MILLENNIUM Retic Abs # 0.040 0.027 - 0.095 x10(6)/mcL CERNER MILLENNIUM Immature Retic% 5.3 2.3 - 15.9 % CERNER MILLENNIUM Reticulated Hgb 35.2 28.5 - 38.9 pg CERNER MILLENNIUM Immature Plt % 2.0 0.0 - 7.4 % CERNER MILLENNIUM Blood specimen (specimen) 12/31/2010 8:35 AM EDT 12/31/2010 10:23 AM EDT Anup Hawkins MD HEMATOLOGY ORDERA BLES [facility] * TACROLIMUS LEVEL (12/31/2010 8:35 AM EDT) Pathologist [facility] Tacrolimus 7.6 ng/mL [facility] Comment:Trough therapeutic: 5-15 ng/mL Blood specimen (specimen) 12/31/2010 8:35 AM EDT 12/31/2010 12:03 PM EDT Anup Hawkins MD CHEMISTRY ORDERAB LES Performing Organization Address City/[facility]/ZIP Co de Phone Number [facility] * (ABNORMAL) URINALYSIS WITH MICROSCOPIC (12/31/2010 8:35 AM EDT) Glucose, Urine Dipstick Negative Negative [...] Urine Dipstick Clear Clear CERNER MILLENNIUM Specific [place] Urine Automated 1.011 1.002 - 1.030 CERNER MILLENNIUM Color, Urine Dipstick Yellow Yellow CERNER MILLENNIUM RBC, Urine 4(H) 0 - 3 /HPF CERNER MILLENNIUM WBC, Urine 1 0 - 3 /HPF CERNER MILLENNIUM Squamous Epithelial Cells, Urine <1 <=4 /HPF CERNER MILLENNIUM Urine specimen (specimen) 12/31/2010 8:35 AM EDT 12/31/2010 10:23 AM EDT Anup Hawkins MD URINE ORDERABLES Performing Organization Address [facility] Phone Number BUSHRA HUERTAENNIUM * APTT (12/31/2010 8:35 AM EDT) Partial Thromboplastin Time 29 25 - 37 sec [facility] MILLENNIUM Comment: Recommended therapeutic PTT range for full dose unfractionated heparin is 80-114 seconds. Blood specimen (specimen) 12/31/2010 8:35 AM EDT 12/31/2010 10:23 AM EDT Anup Hawkins MD HEMATOLOGY ORDERA BLES Performing Organization Address [facility] Phone Number BUSHRA HUERTAENNIUM * (ABNORMAL) PROTHROMBIN TIME (12/31/2010 8:35 AM EDT) Prothrombin Time 16.0(H) 12.3 - 14.7 sec [facility] MILLENNIUM Comment: [facility] Transfusion Committee Guidelines: INR less than 2.0, PTT less than OR equal to 43.5 seconds, or Fibrinogen greater than or equal to 100 mg/dl indicate adequate procoagulant activity for hemostasis in patients without underlying bleeding disorders. International Normalization Ratio 1.2(H) 0.9 - 1.1 CERNER MILLENNIUM Blood specimen (specimen) 12/31/2010 8:35 AM EDT 12/31/2010 10:23 AM EDT Narrative Authorizing Provider Result Angie Hawkins MD HEMATOLOGY ORDERA BLES Performing Organization Address [facility] Phone Number BUSHRA HUERTATetris OnlineIUM * (ABNORMAL) COMPREHENSIVE METABOLIC PANEL (NON-FASTING) (12/31/2010 8:35 AM EDT) [facility] Glucose 105 60 - 199 mg/dL CERNER MILLENNIUM Comment:Diabetes: >=200 mg/d L plus symptoms Blood Urea Nitrogen 42(H) 10 - 20 mg/dL CERNER MILLENNIUM Creatinine 1.97(H) 0.80 - 1.50 mg/dL [facility]ERN[facility] MILLENNIUM Sodium 135 135 - 145 mmol/L CERN[facility] MILLENNIUM Potassium 5.1(H) 3.5 - 5.0 mmol/L CERNER MILLENNIUM Comment: Please note: ??Patients with WBC >100,000 may have falsely elevated Potassium levels. ??For accurate Potassium quantification in these patients send serum separator tube (gold top) for subsequent determinations. ??Contact the Clinical Chemistry Laboratory if there are any questions. Chloride 107 98 - 107 mmol/L CERNER MILLENNIUM Carbon Dioxide 18(L) 22 - 31 mmol/L CERNER MILLENNIUM Anion Gap 10 5 - 15 mmol/L CERNER MILLENNIUM Calcium 9.1 8.5 - 10.5 mg/dL CERNER MILLENNIUM Protein, Total 7.1 6.4 - 8.3 gm/dL CERNER MILLENNIUM Albumin 4.1 3.2 - 5.2 gm/dL CERNER MILLENNIUM Aspartate Aminotransferase Not Perf 0 - 39 unit/L CERNER MILLENNIUM Comment:Unable to quantitate due to sample hemolysis. Sample redraw suggested. Alanine Aminotransferase 22 0 - 55 unit/L CERNER MILLENNIUM Alkaline Phosphatase 96 40 - 120 unit/L CERNER MILLENNIUM Bilirubin, Total 0.7 0.2 - 1.3 mg/dL CERNER MILLENNIUM Bilirubin, Direct 0.1 0.0 - 0.3 mg/dL CERNER MILLENNIUM Est Glomerular Filtration Rate 36(L) >=60 CERNER MILLENNIUM Comment: The National Kidney Disease Education Program (NKDEP) has recommended all laboratories report estimated GFR (eGFR) along with plasma creatinine measurements to assist you with recognition of early kidney disease. Caveats: ??Plasma creatinine should be at steady-state (unchanged within the past week). For patients multiply eGFR by 1.2.MDRD equation has not been validated for pediatric patients and is only valid for patients with age >= 18 years. At present, NKDEP does NOT recommend using [...] with diabetic kidney disease. References: http://nkdep.nih.gov/resources/NKDEP_Suggestn4Labs_0606_508.pdf http://www.kidney.org/professionals/kls/pdf/faq_gfr.pdf Blood specimen (specimen) 12/31/2010 8:35 AM EDT 12/31/2010 10:22 AM EDT Anup Hawkins MD CHEMISTRY ORDERAB LES Performing Organization Address City/State/[facility] Co de Phone Number [facility] documented in this encounter Visit Diagnoses Not on filedocumented in this encounter Care Teams Network Intern Relationship Specialty Start Date End Date Abhijeet Laughlin MD [address] [place] [address] PCP - General 06/03/10 07/20/11 documented as of this encounter
--- OUTSIDE RECORDS SUMMARY | 2024-04-22 11:17 | XMS_ITS | Encounter Summary ---
Author Organization [facility] Address [facility] [place] [address] Care Team Providers Care Forest Fire Prevention Specialist Name Role Phone AlfredoCarroll allison Primary Care Provider [phone] Encounter Details Date Type Department Care Team (Latest Contact Info) Description 10/23/2011 6:48 PM EDT - 10/23/2011 11:59 PM EDT Hospital [place] [address] Anup Hawkins MD [facility] [place] [address] Discharge Disposition: Home Social History Tobacco Use [...] Refills Start Date End Date levothyroxine (SYNTHROID) 88 mcg tablet Take 1 [...] times daily. 60 tablet 11 04/14/2011 04/18/2012 PROGRAF 1 mg capsuleIndications:Ki dney transplant Take 1 capsule by mouth 2 times daily. Brand name Prograf ONLY 60 capsule 12 01/01/2011 01/02/2012 AMOXICILLIN TRIHYDRATE (TRIMOX ORAL) Take 2,000 mg [...] Date/Time Associated Diagnosis Comments TACROLIMUS LEVEL Routine 10/23/2011 6:55 PM EDT documented in this encounter Results * TACROLIMUS LEVEL (10/23/2011 6:55 PM EDT) Tacrolimus 3.5 ng/mL [facility] Comment:Trough therapeutic: 5-15 ng/mL Blood specimen (specimen) 10/23/2011 6:55 PM EDT 10/26/2011 8:09 AM EDT Narrative Resulting Agency Comment Spec In Lab Anup Hawkins MD CHEMISTRY ORDERAB LES [facility] documented in this encounter Visit Diagnoses Not on filedocumented in this encounter Care Teams Forest Fire Prevention Specialist Relationship Specialty Start Date End Date Carroll Fuentes DO [address] [place] [address] PCP - General 09/23/11 10/20/22 documented as of this encounter
--- OUTSIDE RECORDS SUMMARY | 2024-04-22 11:17 | XMS_ITS | Encounter Summary ---
Author Organization [facility] [place] [address] Care Team Providers Care Fertilizer Supervisor Name Role Phone AlfredoCarroll allison Primary Care Provider [phone] Reason for Visit * Reason Onset Date Comments Other 12/18/2011 Medication quest ion Encounter Details Date Type Department Care Team (Late st Contact Info) Description 12/18/2011 Telephone [place] [id number] Janeth Nixon RN Other (Medication question) Social History Tobacco Use Types Packs/Day Years [...] Telephone Encounter - Janeth Nixon RN - 12/18/2011 5:29 PM EDT 12/17/11 @ 5:20 PM key account coordinator note: Received call from [facility]ama asking approval to use OTC Zyrtec for his allergies Intervention: Approval given to Adama. Notified him that antihistamines are safe post txp but not decongestants. documented in this encounter Plan of Treatment Not on file documented as of this encounter Visit Diagnoses Not on filedocumented in this encounter Care Teams Fertilizer Supervisor Relationship Specialty Start Date End Date Carroll Fuentes DO [address] [place] [address] PCP - General 09/23/11 10/20/22 documented as of this encounter
--- OUTSIDE RECORDS SUMMARY | 2024-04-22 11:17 | XMS_ITS | Encounter Summary ---
Author Organization [facility] Address [facility] [place] [address] Care Team Providers Care Clearing Distribution Clerk Name Role Phone Abhijeet Laughlin MD Primary Care Provider [phone] Reason for Visit * Reason Comments Seizures Encounter Details Date Type Department Care Team (Late st Contact Info) Description 04/14/2011 2:45 PM EDT [place] [address] Benji Skinner MD [facility] [place] [address] Epilepsy (Primary Dx) Discharge Disposition: Home Social [...] Sign Reading Time Taken Comments Blood Pressure 108/76 04/14/2011 2:42 PM EDT Pulse 56 04/14/2011 2:42 PM EDT Temperature - - Respiratory Rate - - Oxygen Saturation - - Inhaled Oxygen Concentration - - Weight 95.3 kg (210 lb) 04/14/2011 2:42 PM EDT Height 182.9 cm (6') 04/14/2011 2:42 PM EDT Body Mass Index 28.48 04/14/2011 2:42 PM EDT documented in this encounter Patient Instructions * Patient Instructions* Benji Skinner MD - 04/14/2011 3:37 PM EDT I think you are doing quite well. Seizures are controlled. Your blood tests were OK. Please stay on Keppra. I will see you in year. documented in this encounter Progress Notes * Benji Skinner MD - 04/14/2011 3:19 PM EDT Chief Complaint: Epilepsy. History: The patient is seen in followup today. He is doing quite well neurologically. He remains seizure-free. His last seizure was several years ago. 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 His renal function has stabilized following some adjustment of anti-rejection drugs with reduction in Prograf and introduction of Cellcept. Physical Exam: Head, eyes, ears, nose and throat were normal. Cranial nerves were normal. His strength was normal. Reflexes were somewhat hypoactive, which is his baseline. His gait was stable. Thereis swelling of the left arm where he has the fistula, and pedal edema seems well controlled. Medications: In electronic record Lab Studies: I am not checking any here today. Impression: The patient is doing quite well neurologically. Seizures are fully controlled. I think he should stay on Keppra indefinitely. The leg cramps are better when he drinks tonic water. BP seems stable. Thank you for this consultation. I will see him back in a year or sooner if necessary. cc: CHASE OLVERA MD TRANSPLANT SURGERY CARROLL GARCIA DO [address] [place] [id number] Dictation ID: [id number] Insulator Tester Login: [id number] Communication sent to: Carroll Hartmann Michael C. Chobanian 04/09/2010 08:55 Electronically signed by: BENJI SKINNER MD 04/09/2010 08:55 documented in this encounter Miscellaneous Notes * Miscellaneous - Rick Naturopathic Doctor - 04/22/2011 2:51 AM EDT documented in this encounter Plan of Treatment Not on file documented as of this encounter Visit Diagnoses Diagnosis Epilepsy- Primary Unspecified epilepsy without mention of intractable epilepsy documented in this encounter Care Teams Clearing Distribution Clerk Relationship Specialty Start Date End Date Abhijeet Laughlin MD [address] [place] [id number] PCP - General 06/03/10 07/20/11 documented as of this encounter
--- OUTSIDE RECORDS SUMMARY | 2024-04-22 11:17 | XMS_ITS | Encounter Summary ---
Author Organization [facility] [place] [address] Care Team Providers Care Drill Runner Helper Name Role Phone AlfredoCarroll allison Primary Care Provider [phone] Reason for Visit * Reason Onset Date Comments Other 01/19/2012 MAP-Appl to Co Encounter Details Date Type Department Care Team (Late st Contact Info) Description 01/19/2012 [place] [phone] Nanda Tao Other (MAP-Appl to Co) Social History Tobacco Use Types Packs/Day Years [...] * Telephone Encounter - Nanda Tao - 01/19/2012 5:31 PM EDT MAP-Appl to Co I called [facility]-lakeshia Prograf Quickstart appl online. Prescription to [facility] for Dr. Portillo and will be faxed in to [facility] [id number] documented in this encounter Plan of Treatment Not on file documented as of this encounter Visit Diagnoses Not on filedocumented in this encounter Care Teams Drill Runner Helper Relationship Specialty Start Date End Date Carroll Fuentes DO [address] [facility] [address] [place] [address] PCP - General 09/23/11 10/20/22 documented as of this encounter
--- OUTSIDE RECORDS SUMMARY | 2024-04-22 11:17 | XMS_ITS | Encounter Summary ---
[place] [address] Care Team Providers Care Trailer Sections Assembler Name Role Phone Carroll Fuentes DO Primary Care Provider [phone] Encounter Details Date Type Department Care Team (Late st Contact Info) Description 12/24/2011 External Results [place] [address] Social History Tobacco Use Types Packs/Day Years [...] Date/Time Associated Diagnosis Comments LAB SCAN Routine 12/22/2011 documented in this encounter Results * Scan Doc: Lab (12/22/2011) Historical Provider MD [facility] MGR SCAN EX T ORDR/RSLT documented in this encounter Visit Diagnoses Not on filedocumented in this encounter Care Teams Trailer Sections Assembler Relationship Specialty Start Date End Date Carroll Fuentes DO [address] [place] [address] PCP - General 09/23/11 10/20/22 documented as of this encounter
--- OUTSIDE RECORDS SUMMARY | 2024-04-22 11:17 | XMS_ITS | Encounter Summary ---
Author Organization [facility] Address [facility] [place] [address] Care Team Providers Care Data Modeling Architect Name Role Phone Abhijeet Laughlin MD Primary Care Provider [phone] Encounter Details Date Type Department Care Team (Latest Contact Info) Description 04/28/2011 6:37 PM EDT - 04/28/2011 11:59 PM EDT Hospital [place] [address] Anup Hawkins MD [facility] [place] [address] Discharge Disposition: Home Social History Tobacco Use [...] End Date leveTIRAcetam (KEPPRA) 1,000 mg tablet Take 1 tablet by mouth 2 times daily. 60 tablet 11 04/14/2011 04/18/2012 mycophenolate (CELLCEPT) 250 mg capsuleIndications:Ki dney transplant Take 4 capsules by mouth 2 times daily. Brand name Cellcept only. 360 capsule 3 01/20/2011 07/30/2011 PROGRAF 1 mg capsuleIndications:Ki dnindy transplant Take 1 capsule by mouth 2 times daily. Brand name Prograf ONLY 60 capsule 12 01/01/2011 01/02/2012 AMOXICILLIN TRIHYDRATE (TRIMOX ORAL) Take 2,000 mg by mouth. 1 hour Prior to dental procedures 05/11/2017 metoprolol tartrate (LOPRESSOR) 50 mg tablet Take 50 mg by mouth 3 times daily. 12/03/2010 10/20/2017 LEVOTHYROXINE SODIUM (LEVOTHYROXINE ORAL) Take 75 mcg by mouth daily. 12/02/2010 09/23/2011 hydrALAZINE (APRESOLINE) 50 mg tablet 50 MG = 1 Tablet(s), PO, Twice daily 06/23/2010 06/03/2011 DILTiazem (CARTIA XT) 120 mg 24 hr capsule 120 MG = 1 Capsule(s), PO, Once daily 04/08/2010 02/15/2012 documented as of this encounter Plan of Treatment Not on file documented as of this encounter Procedures Procedure Name Priority Date/Time Associated Diagnosis Comments TACROLIMUS LEVEL Routine 04/28/2011 9:30 AM EDT documented in this encounter Results * TACROLIMUS LEVEL (04/28/2011 9:30 AM EDT) Tacrolimus 3.2 ng/mL B[facility] HUERTAENNIUM Comment:Trough therapeutic: 5-15 ng/mL Blood specimen (specimen) 04/28/2011 9:30 AM EDT 04/29/2011 8:09 AM EDT Anup Hawkins MD CHEMISTRY ORDERAB LES [facility] documented in this encounter Visit Diagnoses Not on filedocumented in this encounter Care Teams Data Modeling Architect Relationship Specialty Start Date End Date Abhijeet Laughlin MD [address] [place] [address] PCP - General 06/03/10 07/20/11 documented as of this encounter
--- OUTSIDE RECORDS SUMMARY | 2024-04-22 11:17 | XMS_ITS | Encounter Summary ---
Author Organization [facility] Address [facility] [place] [address] Care Team Providers Care Import Export Coordinator Name Role Phone AlfredoCarroll allison Primary Care Provider Encounter Details Date Type Department Care Team (Latest Contact Info) Description 12/22/2011 7:19 PM EDT - 12/22/2011 11:59 PM EDT [place] [address] Anup Hawkins MD [facility] [place] [address] Discharge Disposition: Home Social History Tobacco Use [...] Date/Time Associated Diagnosis Comments TACROLIMUS LEVEL Routine 12/22/2011 9:55 AM EDT documented in this encounter Results * TACROLIMUS LEVEL (12/22/2011 9:55 AM EDT) Tacrolimus 3.7 ng/mL BUSHRA DOYLE Comment:Trough therapeutic: 5-15 ng/mL Blood specimen (specimen) 12/22/2011 9:55 AM EDT 12/23/2011 8:11 AM EDT Narrative Resulting Agency Comment Spec In Lab Anup Hawkins MD CHEMISTRY [facility]AB [facility] documented in this encounter Visit Diagnoses Not on filedocumented in this encounter Care Teams Import Export Coordinator Relationship Specialty Start Date End Date Carroll Fuentes DO [address] [place] [address] PCP - General 09/23/11 10/20/22 documented as of this encounter
--- OUTSIDE RECORDS SUMMARY | 2024-04-22 11:17 | XMS_ITS | Encounter Summary ---
Author Organization [facility] Address [facility] [place] [address] Care Team Providers Care Solutions Executive Cloud Sales Name Role Phone Unknown Primary Care Provider Unavailabl e Encounter Details Date Type Department Care Team (Latest Contact Info) Description 09/04/2011 6:32 PM EST - 09/04/2011 11:59 PM [facility] Hospital [place] [address] Anup Hawkins MD [facility] [place] [address] Discharge Disposition: Home Social History Tobacco Use [...] V42.0. Transplant Date; 05-18-03 240 capsule 11 08/07/2011 01/25/2013 hydrALAZINE (APRESOLINE) [...] 75 mcg by mouth daily. 12/02/2010 09/23/2011 DILTiazem (CARTIA XT) 120 mg 24 hr capsule 120 MG = 1 Capsule(s), PO, Once daily 04/08/2010 02/15/2012 documented as of this encounter Plan of Treatment Not on file documented as of this encounter Procedures Procedure Name Priority Date/Time Associated Diagnosis Comments TACROLIMUS LEVEL Routine 09/04/2011 9:45 AM EST documented in this encounter Results * TACROLIMUS LEVEL (09/04/2011 9:45 AM EST) Tacrolimus 5.8 ng/mL BUSHRA DOYLE Comment:Trough therapeutic: 5-15 ng/mL Blood specimen (specimen) 09/04/2011 9:45 AM EST 09/05/2011 9:46 AM EST Narrative Resulting Agency Comment Spec In Lab Anup Hawkins MD CHEMISTRY ORDERAB [facility]ES [facility] documented in this encounter Visit Diagnoses Not on filedocumented in this encounter Care Teams Solutions Executive Cloud Sales Relationship Specialty Start Date End Date Unknown None PCP - General 07/21/11 09/22/11 documented as of this encounter
--- OUTSIDE RECORDS SUMMARY | 2024-04-22 11:17 | XMS_ITS | Encounter Summary ---
Author Organization [facility] Address [facility] [place] [address] Care Team Providers Care Mushroom Laborer Name Role Phone AlfredoCarroll allison Primary Care Provider Encounter Details Date Type Department Care Team (Latest Contact Info) Description 11/24/2011 7:01 PM EDT - 11/24/2011 11:59 PM EDT Hospital [place] [address] Anup Hawkins MD [facility] [place] [address] Discharge Disposition: Home Social History Tobacco Use [...] Date/Time Associated Diagnosis Comments TACROLIMUS LEVEL Routine 11/24/2011 9:05 AM EDT documented in this encounter Results * TACROLIMUS LEVEL (11/24/2011 9:05 AM EDT) Tacrolimus 4.9 ng/mL [facility] Comment:Trough therapeutic: 5-15 ng/mL Blood specimen (specimen) 11/24/2011 9:05 AM EDT 11/25/2011 8:02 AM EDT Narrative Resulting Agency Comment Spec In Lab Anup Hawkins MD CHEMISTRY ORDERAB LES [facility] documented in this encounter Visit Diagnoses Not on filedocumented in this encounter Care Teams Mushroom Laborer Relationship Specialty Start Date End Date Carroll Fuentes DO [address] [place] [address] PCP - General 09/23/11 10/20/22 documented as of this encounter
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
--- OUTSIDE RECORDS SUMMARY | 2024-04-22 11:17 | XMS_ITS | Encounter Summary ---
Author Organization [facility] Address [facility] [place] [address] Care Team Providers Care Valet Service Attendant Name Role Phone Abhijeet Laughlin MD Primary Care Provider [phone] Reason for Visit * Reason Comments Kidney Transplant Follow-up Encounter Details Date Type Department Care Team (Latest Contact Info) Description 01/16/2011 11:00 AM EDT Office Visit [place] [address] Anup Hawkins MD [facility] [address] [place] [address] Transplant kidney; Poisoning by antineoplastic and immunosuppressive drugs; IgA nephropathy; Kidney transplant Discharge Disposition: Home Social History Tobacco [...] Sign Reading Time Taken Comments Blood Pressure 123/89 01/16/2011 11:36 AM EDT Pulse 50 01/16/2011 11:36 AM EDT Temperature 36.3 ??C (97.3 ??F) 01/16/2011 1 1:36 AM EDT Respiratory Rate - - Oxygen Saturation - - Inhaled Oxygen Concentration - - Weight 102.8 kg (226 lb 9.6 oz) 011 11:36 AM EDT Height 182.9 cm (6') 01/16/2011 11:36 AM EDT Body Mass Index 30.73 01/16/2011 11:36 AM EDT documented in this encounter Progress Notes * Anup Hawkins MD - 01/20/2011 5:18 PM EDT Subjective: Patient ID: Adama Ram is a 50 y.o. 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 As a result of the fidnings on biopsy we opted to: Drop his tacrolimus dose to 1 mg BID and reinitiate Cell cept (MMF) 750 mg BID. This is his first clinic appmt after undergoing the biopsy. 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 His postoperative course was complicated by delayed graft function secondary to Prograf toxicity andadjustments in his anticonvulsants. Past Medical History: Left lower leg DVT Gout Hypertension Seizure disorder secondary to a HPI He has tolerated the changes in his meds without problems including diarrhea, rash, or constitutional signs or symptoms. Review of Systems Constitutional: Negative. HENT: Negative. Eyes: Negative. Respiratory: Negative. Cardiovascular: Negative. Gastrointestinal: Negative. Genitourinary: Negative. Musculoskeletal: Negative. Skin: Negative. Neurological: Negative. Hematological: Negative. Psychiatric/Behavioral: Negative. All other systems reviewed and are negative. Objective: Physical Exam Vitals reviewed. Constitutional: He is oriented to person, place, and time. He appears well- developed and well-nourished. HENT: Head: Normocephalic and atraumatic. Mouth/Throat: Oropharynx is clear and moist. No oropharyngeal exudate. Michael complexion Eyes: Conjunctivae and EOM are normal. Pupils are equal, round, and reactive to light. No scleral icterus. Neck: Normal range of motion. Neck supple. No JVD present. No thyromegaly present. Cardiovascular: Normal rate, regular rhythm, normal heart sounds and intact distal pulses. Exam reveals no gallop and no friction rub. No murmur heard. Pulmonary/Chest: Effort normal and breath sounds normal. No respiratory distress. Abdominal: Soft. Bowel sounds are normal. He exhibits mass (graft non tender, no bruits). He exhibits no distension. No tenderness. He has no rebound. Musculoskeletal: He exhibits edema (RLL edema > LLE; old DVT). He exhibits no tenderness. Lymphadenopathy: He has no cervical adenopathy. Neurological: He is alert and oriented to person, place, and time. He has normal reflexes. No cranial nerve deficit. Skin: Skin is warm. No rash noted. No erythema. Psychiatric: He has a normal mood and affect. His behavior is normal. Judgment and thought content normal. Lab Results Component Value Date WBC 4.8 01/16/2011 RBC 4.94 01/16/2011 HGB 15.3 01/16/2011 HCT 44.4 01/16/2011 MCV 89.9 01/16/2011 MCH 31.0 01/16/2011 MCHC 34.5 01/16/2011 PLATELET 174 01/16/2011 RDWCV 13.7 01/16/2011 Chemistry Component Value Date/Time NA 140 01/16/2011 09:46 K 4.6 01/16/2011 09:46 CL 108* 01/16/2011 09:46 CO2 21* 01/16/2011 09:46 BUN 32* 01/16/2011 09:46 CREATININE 1.86* 01/16/2011 09:46 Component Value Date/Time CALCIUM 8.8 01/16/2011 09:46 ALKPHOS 90 01/16/2011 09:46 AST 29 01/16/2011 09:46 ALT 28 01/16/2011 09:46 BILITOT 0.6 01/16/2011 09:46 PO4 3.0 Mg 0.87 Urinalysis 5.5/1.006, 2+protein, 2 rbc/hpf Tacrolimus level (trough): <3.0 ng/mL Assessment and Plan: Adama appears to have made the transition from higher tacrolimus levels to lower ones by merely adding MMF to his regimen. Although his biopsy demonstrated significant tacrolimus changes I am optimistic that by sparing higher doses he can maintain reasonable graft function for several more years. I have increased his MMF dose to 1000 mg BID from 750 mg BID due to higher than goal ALC. I will see him again in one month sooner if necessary. Thereafter will try to extend visits. documented in this encounter Miscellaneous Notes * Communication Body - Anup Hawkins MD - 01/20/2011 5:27 PM EDT Adama Ram returned to Transplant Clinic for follow up of his recent biopsy which revealed recurrent IgA nephropathy and tacrolimus toxicity. We lowered his dose of tacrolimus while re instituting mycophenolate mofetil. His creatinine improved yet his proteinuria did not. I will see him again in one month's time. I anticipate we can maintain his graft longevity goals ofat least 10 years as he is in his 8 th year currently. documented in this encounter Plan of Treatment Not on file documented as of this encounter Procedures Procedure Name Priority Date/Time Associated Diagnosis Comments URINALYSIS WITH REFLEX CULTURE STAT 01/16/2011 9:50 AM EDT Transplant kidney Poisoning by antineoplastic and immunosuppressive drugs DIFFERENTIAL, AUTOMATED STAT 01/16/2011 9:46 AM EDT TACROLIMUS LEVEL STAT 01/16/2011 9:46 AM EDT Transplant kidney Poisoning by antineoplastic and immunosuppressive drugs APTT STAT 01/16/2011 9:46 AM EDT Transplant kidney Poisoning by antineoplastic and immunosuppressive drugs PROTHROMBIN TIME STAT 01/16/2011 9:46 AM EDT Transplant kidney Poisoning by antineoplastic and immunosuppressive drugs RETICULOCYTE COUNT STAT 01/16/2011 9: 46 AM EDT Transplant kidney Poisoning by antineoplastic and immunosuppressive drugs CBC (WITH DIFF) STAT 01/16/2011 9:46 AM EDT Transplant kidney Poisoning by antineoplastic and immunosuppressive drugs URIC ACID STAT 01/16/2011 9:46 AM EDT Transplant kidney Poisoning by antineoplastic and immunosuppressive drugs PHOSPHORUS STAT 01/16/2011 9:46 AM EDT Transplant kidney Poisoning by antineoplastic and immunosuppressive drugs MAGNESIUM STAT 01/16/2011 9:46 AM EDT Transplant kidney Poisoning by antineoplastic and immunosuppressive drugs CHOLESTEROL, TOTAL STAT 01/16/2011 9: 46 AM EDT Transplant kidney Poisoning by antineoplastic and immunosuppressive drugs COMPREHENSIVE METABOLIC PANEL STAT 01/16/2011 9:46 AM EDT Transplant kidney Poisoning by antineoplastic and immunosuppressive drugs documented in this encounter Results * (ABNORMAL) Urinalysis with microscopic (01/16/2011 9:50 AM EDT) Glucose, Urine Dipstick Negative Negative [...] Urine Dipstick Clear Clear CERNER MILLENNIUM Specific [place] Urine Automated 1.006 1.002 - 1.030 CERNER MILLENNIUM Color, Urine Dipstick Yellow Yellow CERNER MILLENNIUM RBC, Urine 2 0 - 3 /HPF CERNER MILLENNIUM WBC, Urine 1 0 - 3 /HPF CERNER MILLENNIUM Squamous Epithelial Cells, Urine <1 <=4 /HPF CERNER MILLENNIUM Urine specimen (specimen) 01/16/2011 9:50 AM EDT 01/16/2011 10:07 AM EDT Anup Hawkins MD URINE ORDERABLES [facility] * REFLEX LAB-A-DIFF (01/16/2011 9:46 AM EDT) Neutrophil % 54.6 34.0 - 71.0 % CERNER MILLENNIUM Neutrophil Absolute 2.59 1.50 - 6.30 x10(3)/mcL CERNER MILLENNIUM Lymph % 29.9 19.0 - 53.0 % CERNER MILLENNIUM Lymphocytes Abs 1.4 1.0 - 3.6 x10(3)/mcL CERNER MILLENNIUM Monocyte % 10.3 4.0 - 13.0 % CERNER MILLENNIUM Monocyte Abs 0.5 0.2 - 1.0 x10(3)/mcL CERNER MILLENNIUM Eos % 4.4 0.0 - 7.0 % CERNER MILLENNIUM Eosinophils Abs 0.2 0.0 - 0.5 x10(3)/mcL CERNER MILLENNIUM Basophil % 0.6 0.0 - 2.0 % CERNER MILLENNIUM Baso [...] 0.05 x10(3)/mcL CERNER MILLENNIUM Blood specimen (specimen) 01/16/2011 9:46 AM EDT 01/16/2011 9:51 AM EDT Anup Hawkins MD HEMATOLOGY ORDERA BLES [facility] * (ABNORMAL) Prothrombin Time (01/16/2011 9:46 AM EDT) Prothrombin Time 18.8(H) 12.3 - 14.7 sec CERNER MILLENNIUM Comment: [facility] Transfusion Committee Guidelines: INR less than 2.0, PTT less than OR equal to 43.5 seconds, or Fibrinogen greater than or equal to 100 mg/dl indicate adequate procoagulant activity for hemostasis in patients without underlying bleeding disorders. International Normalization Ratio 1.6(H) 0.9 - 1.1 CERNER MILLENNIUM Blood specimen (specimen) 01/16/2011 9:46 AM EDT 01/16/2011 9:51 AM EDT Anup Hawkins MD HEMATOLOGY ORDERA BLES Performing Organization Address [facility] de Phone Number [facility] BRADLEYENNIUM * APTT (01/16/2011 9:46 AM EDT) Partial Thromboplastin Time 30 25 - 37 sec [facility] MILLENNIUM Comment: Recommended therapeutic PTT range for full dose unfractionated heparin is 80-114 seconds. Blood specimen (specimen) 01/16/2011 9:46 AM EDT 01/16/2011 9:51 AM EDT Anup Hawkins MD HEMATOLOGY ORDERA BLES Performing Organization Address [facility] Phone Number [facility] SIMON[facility] * Tacrolimus level (01/16/2011 9:46 AM EDT) Tacrolimus <3.0 ng/mL [facility] BR[facility] Comment:Trough therapeutic: 5-15 ng/mL Blood specimen (specimen) 01/16/2011 9:46 AM EDT 01/16/2011 11:56 AM EDT Anup Hawkins MD CHEMISTRY ORDERAB LES Performing Organization Address [facility] de Phone Number [facility] ALFREDIUM * Reticulocyte Count (01/16/2011 9:46 AM EDT) Reticulocyte % 0.7 0.5 - 2.4 % CERNER MILLENNIUM Retic Abs # 0.030 0.027 - 0.095 x10(6)/mcL CERNER MILLENNIUM Immature Retic% 4.3 2.3 - 15.9 % CERNER MILLENNIUM Reticulated Hgb 35.0 28.5 - 38.9 pg CERNER MILLENNIUM Immature Plt % 1.7 0.0 - 7.4 % CERNER MILLENNIUM Blood specimen (specimen) 01/16/2011 9:46 AM EDT 01/16/2011 9:51 AM EDT Anup Hawkins MD HEMATOLOGY ORDERA BLES CER[facility]ANNAN HUERTAENNIUM * (ABNORMAL) CBC (with Diff) (01/16/2011 9:46 AM EDT) White Blood Cell 4.8 4.0 - 10.0 x10(3)/mc L CERNER MILLENNIUM Red Blood Cell 4.94 4.63 - 6.08 x10(6)/mc L CERNER MILLENNIUM Hemoglobin 15.3 13.7 - 17.5 gm/dL CERNER MILLENNIUM Hematocrit 44.4 40.0 - 51.0 % CERNER MILLENNIUM Mean Cell Volume 89.9 79.0 - 92.0 fL CERNER MILLENNIUM Mean Cell Hemoglobin 31.0 25.6 - 32.2 pg CERNER MILLENNIUM Mean Cell Hemoglobin Concentration 34.5 32.0 - 36.5 gm/dL CERNER MILLENNIUM Platelet 174 145 - 370 x10(3)/mc L CERNER MILLENNIUM RDW Standard Deviation 44.8 35.0 - 46.0 fL CERNER MILLENNIUM RDW coefficient of variation 13.7 10.9 - 14.4 % CERNER MILLENNIUM Mean Platelet Volume 8.9(L) 9.0 - 12.0 fL CERNER MILLENNIUM Blood specimen (specimen) 01/16/2011 9:46 AM EDT 01/16/2011 9:51 AM EDT Anup Hawkins MD HEMATOLOGY ORDERA BLES [facility] SIMONI[facility] * Uric acid (01/16/2011 9:46 AM EDT) Uric Acid 5.6 3.5 - 8.5 mg/dL CERNER MILLENNIUM Blood specimen (specimen) 01/16/2011 9:46 AM EDT 01/16/2011 9:51 AM EDT Anup Hawkins MD CHEMISTRY ORDERAB LES [facility] HUERTAENNIUM * Phosphorus (01/16/2011 9:46 AM EDT) Phosphorus 3.0 2.5 - 4.5 mg/dL CERNER MILLENNIUM Blood specimen (specimen) 01/16/2011 9:46 AM EDT 01/16/2011 9:51 AM EDT Anup Hawkins MD CHEMISTRY ORDERAB LES Performing Organization Address [facility] Co de Phone Number CERSHANNAN HUERTAENNIUM * Magnesium (01/16/2011 9:46 AM EDT) Magnesium 0.87 0.69 - 1.07 mmol/L CERNER MILLENNIUM Blood specimen (specimen) 01/16/2011 9:46 AM EDT 01/16/2011 9:51 AM EDT Anup Hawkins MD CHEMISTRY ORDERAB LES Performing Organization Address [facility] Co de Phone Number CERSHANNAN HUERTAENNIUM * (ABNORMAL) Comprehensive metabolic panel (non-fasting) (01/16/2011 9:46 AM EDT) Glucose 103 60 - 199 mg/dL CERNER MILLENNIUM Comment:Diabetes: >=200 mg/d L plus symptoms Blood Urea Nitrogen 32(H) 10 - 20 mg/dL CERNER MILLENNIUM Creatinine 1.86(H) 0.80 - 1.50 mg/dL CERNER MILLENNIUM Sodium [...] 5 - 15 mmol/L CERNER MILLENNIUM Calcium 8.8 8.5 - 10.5 mg/dL CERNER MILLENNIUM Protein, Total 6.8 6.4 - 8.3 gm/dL CERNER MILLENNIUM Albumin 4.1 3.2 - 5.2 gm/dL CERNER MILLENNIUM Aspartate Aminotransferase 29 0 - 39 unit/L CERNER MILLENNIUM Alanine Aminotransferase 28 0 - 55 unit/L CERNER MILLENNIUM Alkaline Phosphatase 90 40 - 120 unit/L CERNER MILLENNIUM Bilirubin, [...] disease. References: http://nkdep.nih.gov/resources/NKDEP_Suggestn4Labs_0606_508.pdf http://www.kidney.org/professionals/kls/pdf/faq_gfr.pdf Blood specimen (specimen) 01/16/2011 9:46 AM EDT 01/16/2011 9:51 AM EDT Anup Hawkins MD CHEMISTRY ORDERAB LES BUSHRA HUERTAHost CommitteeMONE * Cholesterol, total (01/16/2011 9:46 AM EDT) Cholesterol, Total 192 <=199 mg/dL BUSHRA HUERTAENNIUM Comment: Recommendations of the NCEP Adult Treatment Panel for the following risk cutoff thresholds for the [place] population: Desirable: <200 mg/dL Borderline High: 200-239 mg/dL High: > or = 240 mg/dL Blood specimen (specimen) 01/16/2011 9:46 AM EDT 01/16/2011 9:51 AM EDT Anup Hawkins MD CHEMISTRY ORDERAB LES Performing Organization Address [facility] Co de Phone Number BUSHRA DOYLE documented in this encounter Visit Diagnoses Diagnosis Transplant kidney Kidney replaced by transplant Poisoning by antineoplastic and immunosuppressive drugs(963.1) Poisoning by antineoplastic and immunosuppressive drugs IgA nephropathy Nephritis and nephropathy, not specified as acute or chronic, with unspecified pathological lesion in kidney Kidney transplant Kidney replaced by transplant documented in this encounter Care Teams Valet Service Attendant Relationship Specialty Start Date End Date Abhijeet Laughlin MD [address] [place] [address] PCP - General 06/03/10 07/20/11 documented as of this encounter
--- OUTSIDE RECORDS SUMMARY | 2024-04-22 11:17 | XMS_ITS | Encounter Summary ---
[place] [address] Care Team Providers Care Jig Builder Helper Name Role Phone Carroll Fuentes DO Primary Care Provider Encounter Details Date Type Department Care Team (Late st Contact Info) Description 11/27/2011 External Results [place] [address] Social History Tobacco Use Types Packs/Day Years [...] Date/Time Associated Diagnosis Comments LAB SCAN Routine 11/24/2011 documented in this encounter Results * Scan Doc: Lab (11/24/2011) Historical Provider MD GREENE MGR SCAN EX T ORDR/RSLT documented in this encounter Visit Diagnoses Not on filedocumented in this encounter Care Teams Jig Builder Helper Relationship Specialty Start Date End Date Carroll Fuentes DO [address] [place] [address] PCP - General 09/23/11 10/20/22 documented as of this encounter
--- OUTSIDE RECORDS SUMMARY | 2024-04-22 11:17 | XMS_ITS | Encounter Summary ---
[place] [address] Care Team Providers Care Tin Flopper Name Role Phone Carroll Fuentes Primary Care Provider Encounter Details Date Type Department Care Team (Late st Contact Info) Description 01/05/2012 Telephone [place] [id number] Janeth Nixon, RN Social History Tobacco Use [...] Telephone Encounter - Janeth Nixon, RN - 01/05/2012 1:58 PM EDT Message copied by JANETH NIXON on WedJan 05, 2012 1:58 PM ------ Message from: LORI MORALES Created: WedJan 05, 2012 10:43 AM Contact: Has cold. His Dr has prescribed doxycycline. Is it safe? Thanks, Laurie 01/05/[address] [facility] volunteer coordinator note: After conferring with Dr. Hawkins, notified Mr. Ram that Doxycycline is a safe antibiotic to take post kidney txp. States that his cold turned into a lung infection. documented in this encounter Plan of Treatment Not on file documented as of this encounter Visit Diagnoses Not on filedocumented in this encounter Care Teams Tin Flopper Relationship Specialty Start Date End Date Carroll Fuentes DO [address] [place] [address] [address] [facility] [address] [place] [address] PCP - General 09/23/11 10/20/22 documented as of this encounter
--- OUTSIDE RECORDS SUMMARY | 2024-04-22 11:17 | XMS_ITS | Encounter Summary ---
Author Organization [facility] Address [facility] [place] [address] Care Team Providers Care Cementer Machine Applicator Name Role Phone Unknown Primary Care Provider Unavailabl e Encounter Details Date Type Department Care Team (Latest Contact Info) Description 07/21/2011 6:58 PM EST - 07/21/2011 11:59 PM [facility] Hospital [place] [address] Anup Hawkins MD [facility] [place] [address] Discharge Disposition: Home Social History Tobacco Use [...] End Date hydrALAZINE (APRESOLINE) 50 mg tablet Take 1 tablet by mouth 2 times daily. 60 tablet 12 06/03/2011 01/22/2012 leveTIRAcetam (KEPPRA) 1,000 mg tablet Take 1 tablet by mouth 2 times daily. 60 tablet 11 04/14/2011 04/18/2012 mycophenolate (CELLCEPT) 250 mg capsuleIndications:Ki dney transplant Take 4 capsules by mouth 2 times daily. Brand name Cellcept only. 360 capsule 3 01/20/2011 07/30/2011 PROGRAF 1 mg capsuleIndications:Connor morton transplant Take 1 capsule by mouth 2 [...] Date/Time Associated Diagnosis Comments TACROLIMUS LEVEL Routine 07/21/2011 9:35 AM EST documented in this encounter Results * TACROLIMUS LEVEL (07/21/2011 9:35 AM EST) Tacrolimus 3.4 ng/mL BUSHRA DOYLE Comment:Trough therapeutic: 5-15 ng/mL Blood specimen (specimen) 07/21/2011 9:35 AM EST 07/22/2011 8:04 AM EST Anup Hawkins MD CHEMISTRY ORDERAB LES [facility] documented in this encounter Visit Diagnoses Not on filedocumented in this encounter Care Teams Cementer Machine Applicator Relationship Specialty Start Date End Date Unknown None PCP - General 07/21/11 09/22/11 documented as of this encounter
--- OUTSIDE RECORDS SUMMARY | 2024-04-22 11:17 | XMS_ITS | Encounter Summary ---
[place] [address] Care Team Providers Care Glassware Finisher Name Role Phone Carroll Fuentes DO Primary Care Provider Encounter Details Date Type Department Care Team (Late st Contact Info) Description 10/27/2011 External Results [place] [address] Social History Tobacco Use Types Packs/Day Years [...] Date/Time Associated Diagnosis Comments LAB SCAN Routine 10/23/2011 documented in this encounter Results * Scan Doc: Lab (10/23/2011) Historical Provider MD GREENE MGR SCAN EX T ORDR/RSLT documented in this encounter Visit Diagnoses Not on filedocumented in this encounter Care Teams Glassware Finisher Relationship Specialty Start Date End Date Carroll Fuentes DO [address] [place] [address] PCP - General 09/23/11 10/20/22 documented as of this encounter
--- OUTSIDE RECORDS SUMMARY | 2024-04-22 11:17 | XMS_ITS | Encounter Summary ---
[place] [address] Care Team Providers Care Airport Maintenance Laborer Name Role Phone Unknown Primary Care Provider Unavailabl e Encounter Details Date Type Department Care Team (Late st Contact Info) Description 07/23/2011 External Results [place] [address] Social History Tobacco Use Types Packs/Day Years [...] Date/Time Associated Diagnosis Comments LAB SCAN Routine 07/21/2011 documented in this encounter Results * Scan Doc: Lab (07/21/2011) Historical Provider MD GREENE MGR SCAN EX T ORDR/RSLT documented in this encounter Visit Diagnoses Not on filedocumented in this encounter Care Teams Airport Maintenance Laborer Relationship Specialty Start Date End Date Unknown None PCP - General 07/21/11 09/22/11 documented as of this encounter
--- OUTSIDE RECORDS SUMMARY | 2024-04-22 11:17 | XMS_ITS | Encounter Summary ---
Author Organization [facility] Address [facility] [place] [address] Care Team Providers Care Wood Model Maker Name Role Phone AlfredoCarroll allison Primary Care Provider Encounter Details Date Type Department Care Team (Latest Contact Info) Description 10/03/2011 6:44 PM EDT - 10/03/2011 11:59 PM EDT Hospital [place] [address] Anup Hawkins MD [facility] [place] [address] Discharge Disposition: Home Social History Tobacco Use [...] Date/Time Associated Diagnosis Comments TACROLIMUS LEVEL Routine 10/03/2011 9:47 AM EDT documented in this encounter Results * TACROLIMUS LEVEL (10/03/2011 9:47 AM EDT) Tacrolimus 5.9 ng/mL BUSHRA DOYLE Comment:Trough therapeutic: 5-15 ng/mL Blood specimen (specimen) 10/03/2011 9:47 AM EDT 10/06/2011 8:20 AM EDT Narrative Resulting Agency Comment Spec In Lab Anup Hawkins MD CHEMISTRY ORDERAB LES [facility] documented in this encounter Visit Diagnoses Not on filedocumented in this encounter Care Teams Wood Model Maker Relationship Specialty Start Date End Date Carroll Fuentes DO [address] [place] [address] PCP - General 09/23/11 10/20/22 documented as of this encounter
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
--- OUTSIDE RECORDS SUMMARY | 2024-04-22 11:17 | XMS_ITS | Encounter Summary ---
Author Organization [facility] Address [facility] [place] [address] Care Team Providers Care Clinical Trials Assistant Name Role Phone Abhijeet Laughlin MD Primary Care Provider [phone] Encounter Details Date Type Department Care Team (Latest Contact Info) Description 06/23/2011 6:52 PM EST - 06/23/2011 11:59 PM [facility] Hospital [place] [address] Anup Hawkins MD [facility] [place] [address] Discharge Disposition: Home Social History Tobacco Use [...] 11 04/14/2011 04/18/2012 mycophenolate (CELLCEPT) 250 mg capsuleIndications:Connor dney transplant Take 4 capsules by mouth 2 times daily. Brand name Cellcept only. 360 capsule 3 01/20/2011 07/30/2011 PROGRAF 1 mg capsuleIndications:Connor dney transplant Take 1 capsule by mouth [...] Date/Time Associated Diagnosis Comments TACROLIMUS LEVEL Routine 06/23/2011 8:25 AM EST documented in this encounter Results * TACROLIMUS LEVEL (06/23/2011 8:25 AM EST) Tacrolimus <3.0 ng/mL [facility] Comment:Trough therapeutic: 5-15 ng/mL Blood specimen (specimen) 06/23/2011 8:25 AM EST 06/24/2011 8:06 AM EST Anup Hawkins MD CHEMISTRY ORDERAB LES [facility] documented in this encounter Visit Diagnoses Not on filedocumented in this encounter Care Teams Clinical Trials Assistant Relationship Specialty Start Date End Date Abhijeet Laughlin MD [address] [place] [address] PCP - General 06/03/10 07/20/11 documented as of this encounter
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
--- OUTSIDE RECORDS SUMMARY | 2024-04-22 11:17 | XMS_ITS | Encounter Summary ---
Author Organization [facility] Address [facility] [address] Care Team Providers Care Properties Supervisor Name Role Phone Abhijeet Laughlin MD Primary Care Provider [phone] Reason for Visit * Reason Onset Date Comments Medication Refill 06/03/2011 Encounter Details Date Type Department Care Team (Late st Contact Info) Description 06/03/2011 Refill [place] [address] Anup Hawkins MD [facility] [place] [address] Social History Tobacco Use Types Packs/Day Years [...] on filedocumented in this encounter Care Teams Properties Supervisor Relationship Specialty Start Date End Date Abhijeet Laughlin MD [address] [place] [address] PCP - General 06/03/10 07/20/11 documented as of this encounter
--- OUTSIDE RECORDS SUMMARY | 2024-04-22 11:17 | XMS_ITS | Encounter Summary ---
[place] [address] Care Team Providers Care Mercerizing Range Controller Name Role Phone Unknown Primary Care Provider Unavailabl e Encounter Details Date Type Department Care Team (Late st Contact Info) Description 08/26/2011 External Results [place] [address] Social History Tobacco Use Types Packs/Day Years [...] Date/Time Associated Diagnosis Comments LAB SCAN Routine 08/24/2011 documented in this encounter Results * Scan Doc: Lab (08/24/2011) Historical Provider MD GREENE MGR SCAN EX T ORDR/RSLT documented in this encounter Visit Diagnoses Not on filedocumented in this encounter Care Teams Mercerizing Range Controller Relationship Specialty Start Date End Date Unknown None PCP - General 07/21/11 09/22/11 documented as of this encounter
--- OUTSIDE RECORDS SUMMARY | 2024-04-22 11:17 | XMS_ITS | Encounter Summary ---
Author Organization [facility] Address [facility] [address] Care Team Providers Care Government Relations Manager Name Role Phone Abhijeet Laughlin MD Primary Care Provider [phone] Reason for Visit * Reason Onset Date Comments Results 01/01/2011 Encounter Details Date Type Department Care Team (Late st Contact Info) Description 01/01/2011 Telephone [place] [address] Anup Hawkins MD [facility] [place] [address] Results Social History Tobacco Use Types Packs/Day Years [...] encounter Miscellaneous Notes * Telephone Encounter - Anup Hawkins MD - 01/01/2011 1:56 PM EDT Reviewed the percutaneous renal transplant biopsy which was performed yesterday, with Dr. Davis. Two prominent features are present: 1)recurrent IgA nephropathy 2)tacrolimus toxicity, with hyalinization of the vessels Plan: 1)increase fluids consistently 2)drop tacrolimus dosing to 1 mg BID from 2 mg in AM and 1 mg in PM 3)reinstitute Cell cept 750 mg BID; increase dose to maintain ALC less than 500 cells/cc 4)RTC January 16 at 11 AM, labs at 9:30AM documented in this encounter Plan of Treatment Not on file documented as of this encounter Visit Diagnoses Diagnosis Kidney transplant- Primary Kidney replaced by transplant documented in this encounter Care Teams Government Relations Manager Relationship Specialty Start Date End Date Abhijeet Laughlin MD [address] [place] [address] PCP - General 06/03/10 07/20/11 documented as of this encounter
--- OUTSIDE RECORDS SUMMARY | 2024-04-22 11:17 | XMS_ITS | Encounter Summary ---
[place] [address] Care Team Providers Care Special Education Paraprofessional Name Role Phone Abhijeet Laughlin MD Primary Care Provider [phone] Encounter Details Date Type Department Care Team (Late st Contact Info) Description 04/30/2011 Orders Only [place] [address] Social History Tobacco Use Types Packs/Day Years [...] Date/Time Associated Diagnosis Comments LAB SCAN Routine 04/28/2011 documented in this encounter Results * Scan Doc: Lab (04/28/2011) Historical Provider MD GREENE MGR SCAN EX T ORDR/RSLT documented in this encounter Visit Diagnoses Not on filedocumented in this encounter Care Teams Special Education Paraprofessional Relationship Specialty Start Date End Date Abhijeet Laughlin MD [address] [place] [address] PCP - General 06/03/10 07/20/11 documented as of this encounter
--- OUTSIDE RECORDS SUMMARY | 2024-04-22 11:17 | XMS_ITS | Encounter Summary ---
Author Organization [facility] Address [facility] [place] [address] Care Team Providers Care Rail Splitter Name Role Phone Carroll Fuentes DO Primary Care Provider [phone] Reason for Visit * Reason Onset Date Comments Medication Refill 01/06/2012 Encounter Details Date Type Department Care Team (Late st Contact Info) Description 01/06/2012 Refill [place] [address] Anup Hawkins MD [facility] [place] [address] Transplanted kidney (Primary Dx) Social History Tobacco [...] transplant documented in this encounter Care Teams Rail Splitter Relationship Specialty Start Date End Date Carroll Fuentes DO [address] [place], [place] [address] PCP - General 09/23/11 10/20/22 documented as of this encounter
--- OUTSIDE RECORDS SUMMARY | 2024-04-22 11:17 | XMS_ITS | Encounter Summary ---
Author Organization [facility] [place] [address] Care Team Providers Care Knit Goods Mender Name Role Phone Ileana Azevedo CATRACHITO Primary Care Provider [phone] Encounter Details Date Type Department Care Team (Late st Contact Info) Description 12/31/2010 Orders Only [place] [address] Anup Hawkins MD [facility] [place] [address] Social History Tobacco Use Types Packs/Day Years Used Date Smoking Tobacco: Former Cigarettes Q uit: 12/03/2000 Alcohol Use Standard Drinks/Week Comments Not Asked 0 (1 standard drink = 0.6 oz pur e alcohol) [facility] Inpatient Questions Answer Date Recorded Does Anyone [...] Associated Diagnosis Comments SURGICAL PATHOLOGY REPORT Routine 12/31/2010 10:56 AM EDT documented in this encounter Results * Surgical Pathology Report (12/31/2010 10:56 AM EDT) Surgical Pathology Report [id number] ? Location: 3S The signing pathologist has (i) examined the relevant preparation(s) for the specimen(s) and (ii) rendered or confirmed the diagnosis(es). . 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 Qty/Size/Weight: ?Single pale charles-white to pink-smith tissue needle core ?biopsy, 0.9 x 0.1 cm. Sections/Processing: ??(T1) B - Labeled/Fixative: Labeled with the patient's name, saline. Qty/Size/Weight: ?Single yellow-smith tissue needle core biopsy, ?0.3 x 0.1 x 0.1 cm. Sections/Processing: ??Snap frozen for immunofluorescent studies. C - Labeled/Fixative: Labeled with the patient's name, glutaraldehyde. Qty/Size/Weight: ?Single yellow-smith needle core biopsy, 0.3 x 0.1 cm. Sections/Processing: ??Submitted for electron microscopy. ??aje/EJR Microscopic Description LIGHT MICROSCOPY ?? The biopsy consists of a small portion of renal cortex and a long tail of fibrous capsular tissue and extrarenal adipose tissue. ??Two glomeruli are present. ??They are normal in size and cellularity. ??Neither is globally sclerotic. ??The PAS and methenamine silver stains show modest expansion of the mesangial matrix, associated segmentally with slight hypercellularity. ??Capillary lumens are patent, and the basement membranes are delicate. ??No crescents are identified. ??The trichrome stain shows mild fibrosis. ??There is a slight suggestion of tangential streak-like fibrosis extending from the capsule and parallel to a second linear zone of fibrosis deeper in the cortex. ??No interstitial inflammation is present. ??The tubules are back to back, without dilatation, vacuolization, viral cytopathic changes, or tubulitis. ??Several interlobular arteries show striking bead-like, nodular or elongated zones of medial hyalinization. ??A glomerular hilar arteriole shows similar changes. ??No endothelialitis is identified. ??The Congo red stain is negative. IMMUNOFLUORESCENCE ?? Direct immunofluorescence is performed using appropriate internal positive controls. ??Intensity of staining is measured seminquantitatively on a scale of 0 to 4+. ?? Evaluable glomeruli: ??Seven. ?? IgG: ??3+ coarsely granular mesangial staining; 4+ casts. . Microscopic Description ?? C3: ?? 2 to 3+ punctate mesangial staining. ?? C1q: ??Negative. ?? IgA: ??3 to 4+ coarsely granular mesangial staining; 4+ casts. ?? IgM: ??1+ granular mesangial staining. ?? Fibrinogen: ??Negative. ?? Albumin: ??Negative glomerular staining; 2+ granular staining ? of tubular epithelial cells. ?? Edith Endave: ?1 to 2+ granular mesangial staining. ?? Lambda: ?? 2+ granular mesangial staining. ELECTRON MICROSCOPY ?? Glomeruli evaluated: ??6 ?? Paramesangial electron dense deposits are numerous and extensive. ??Many are piled up and confluent, and others are spread prominently into the mesangium. ??A few, widely scattered transmembrane deposits are present peripherally, and a few capillaries show small numbers of discrete subendothelial deposits. ??Epithelial cells are focally swollen, with focal microvillous transformation and interrupted foot process effacement. Diagnosis Kidney, needle biopsy: ?? 1. 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 ?? 2. ??Marked medial vascular hyalinization, consistent with ? FK506 toxicity. CR-0 01/02/11 VMS 01/13/11 Verified by: ? Susan JONES, Enrique Mora ?Pathologist ?(Electronic Signature) The attending pathologist whose signature appears on this report has reviewed all diagnostic slides and has edited the gross and/or microscopic portion of the report in rendering the final pathologic diagnosis. CODISHANNAN HUERTAМАРИЯ 12/31/2010 10:5 6 AM EDT Anup Hawkins MD PATHOLOGY/CYTOLOG Y ORDERABLES Performing Organization Address City/State/[facility] Co de Phone Number [facility] documented in this encounter Visit Diagnoses Not on filedocumented in this encounter Care Teams Knit Goods Mender Relationship Specialty Start Date End Date Ileana Azevedo, LOOPER FIXER [address] [place] [address] PCP - General Family Medicine 10/21/22 documented as of this encounter
--- OUTSIDE RECORDS SUMMARY | 2024-04-22 11:17 | XMS_ITS | Encounter Summary ---
[facility] [place] [address] Care Team Providers Care Piece Meat Trimmer Name Role Phone Unknown Primary Care Provider Unavailabl e Encounter Details Date Type Department Care Team (Latest Contact Info) Description 08/24/2011 6:43 PM EST - 08/24/2011 11:59 PM [facility] [place] [address] Anup Hawkins MD [facility] [place] [address] Discharge Disposition: Home Social History Tobacco Use [...] Date/Time Associated Diagnosis Comments TACROLIMUS LEVEL Routine 08/24/2011 6:00 PM EST documented in this encounter Results * TACROLIMUS LEVEL (08/24/2011 6:00 PM EST) Tacrolimus 4.0 ng/mL [facility] Comment:Trough therapeutic: 5-15 ng/mL Blood specimen (specimen) 08/24/2011 6:00 PM EST 08/25/2011 8:18 AM EST Anup Hawkins MD CHEMISTRY ORDERAB LES [email or web address] documented in this encounter Visit Diagnoses Not on filedocumented in this encounter Care Teams Piece Meat Trimmer Relationship Specialty Start Date End Date Unknown None PCP - General 07/21/11 09/22/11 documented as of this encounter
--- OUTSIDE RECORDS SUMMARY | 2024-04-22 11:17 | XMS_ITS | Encounter Summary ---
Author Organization [facility] Address [facility] [place] [address] Care Team Providers Care Process Operator Name Role Phone Abhijeet Laughlin MD Primary Care Provider [phone] Encounter Details Date Type Department Care Team (Latest Contact Info) Description 02/02/2011 6:31 PM EDT - 02/02/2011 11:59 PM EDT Hospital [place] [address] Anup Hawkins MD [facility] [place] [address] Discharge Disposition: Home Social History Tobacco Use [...] Date End Date mycophenolate (CELLCEPT) 250 mg capsuleIndications:Ki dney transplant Take 4 capsules by mouth 2 times daily. Brand name Cellcept only. 360 capsule 3 01/20/2011 07/30/2011 PROGRAF 1 mg capsuleIndications:Ki dney transplant Take [...] Date/Time Associated Diagnosis Comments TACROLIMUS LEVEL Routine 02/02/2011 9:15 AM EDT documented in this encounter Results * TACROLIMUS LEVEL (02/02/2011 9:15 AM EDT) Tacrolimus 5.2 ng/mL [facility] Comment:Trough therapeutic: 5-15 ng/mL Blood specimen (specimen) 02/02/2011 9:15 AM EDT 02/03/2011 8:10 AM EDT Anup Hawkins MD CHEMISTRY ORDERAB LES [facility] documented in this encounter Visit Diagnoses Not on filedocumented in this encounter Care Teams Process Operator Relationship Specialty Start Date End Date Abhijeet Laughlin MD [address] [place] [address] PCP - General 06/03/10 07/20/11 documented as of this encounter
--- OUTSIDE RECORDS SUMMARY | 2024-04-22 11:17 | XMS_ITS | Encounter Summary ---
Author Organization [facility] Address [facility] [place] [address] Care Team Providers Care Cad Application Support Specialist Name Role Phone AlfredoCarroll geiger Primary Care Provider [phone] Encounter Details Date Type Department Care Team (Late st Contact Info) Description 01/20/2012 Telephone [place] [address] Tierney Chandra I, HANDER IN [facility] [address] Social History Tobacco Use Types Packs/Day Years [...] encounter Miscellaneous Notes * Telephone Encounter - Tierney Chandra MSW - 01/20/2012 11:39 AM EDT JANICE telephone note: Spoke to pt who left message with Rashawn Saxena LPN regarding loss of insurance and inability to afford medications. Pt stated he lost his insurance several months ago and has been paying for medications out of pocket. He has no money left and his mother is no longer able to help.JANICE encouraged pt to go to his local welfare office to apply for insurance EMLY. SW also discussed [employer] prescription assistance and [employer] assistance programs. JANIEC requested Janeth Tao from [facility] assist with [employer] application while this SW will initiate the [employer] application. Pt will come to [facility] with income tax information for [employer] and to complete needed paperwork to expedite his application. Pt appreciative of assistance. SW will remain involved. Tierney Chandra LCSW documented in this encounter Plan of Treatment Not on file documented as of this encounter Visit Diagnoses Not on filedocumented in this encounter Care Teams Cad Application Support Specialist Relationship Specialty Start Date End Date Carroll Fuentes DO [address] [place] [address] PCP - General 09/23/11 10/20/22 documented as of this encounter
--- OUTSIDE RECORDS SUMMARY | 2024-04-22 11:18 | XMS_ITS | Encounter Summary ---
Author Organization [facility] [place] [address] Care Team Providers Care Risk Management Professional Name Role Phone Abhijeet Laughlin MD Primary Care Provider [phone] Encounter Details Date Type Department Care Team (Late st Contact Info) Description 11/11/2010 Orders Only [place] [address] Naz Anthony APRN [facility] [place] [address] Transplant of kidney (Primary Dx) Social History Tobacco Use Types Packs/Day Years Used Date Smoking Tobacco: Never Assessed Sex and Gender Information Value Date Recorded Sex Assigned at Not on file Gender Identity Not on file Sexual Orientation Not on file documented as of this encounter Plan of Treatment Not on file documented as of this encounter Results * Vitamin D2 and D3 25 Hydroxy (12/03/2010 2:16 PM EDT) 25-Hydroxy D2 6.9 ng/mL [facility] Comment: Test Performed by: [employer] [address] [address] Shoe Stamper: Chritsal Ramírez, Ph.D. 25-Hydroxy D3 23 ng/mL [facility] Leevia Comment: Test Performed by: [facility] [employer] [address] [address] Shoe Stamper: Christal Ramírez, Ph.D. Vitamin D Total 25 OH 30 ng/mL [facility] MILLENNIUM Comment: -- REFERENCE VALUE -- 25-HYDROXY D TOTAL (D2+D3) Optimum levels in the normal population are 25-80 Test Performed by: [facility] [place] [address] Shoe Stamper: Christal Ramírez, Ph.D. Blood specimen (specimen) 12/03/2010 2:16 PM EDT 12/03/2010 3:14 PM EDT Anup Hawkins MD CHEMISTRY ORDERAB LES Performing Organization Address City/[facility]/ZIP Co de Phone Number [facility]ER[facility]ANNAN SIMONIUM * Reticulocyte Count (12/03/2010 2:16 PM EDT) Reticulocyte % 0.8 0.5 - 2.4 % [facility] MILLENNIUM Retic Abs # 0.040 0.027 - 0.095 x10(6)/mcL [facility] Immature Retic% 8.1 2.3 - 15.9 % [facility] Reticulated Hgb 33.6 28.5 - 38.9 pg [facility]ILL[facility] Immature Plt % 2.0 0.0 - 7.4 % [facility] Blood specimen (specimen) 12/03/2010 2:16 PM EDT 12/03/2010 2:23 PM EDT Anup Hawkins MD HEMATOLOGY ORDERA BLES Performing Organization Address City/[facility]/ZIP Co de Phone Number [facility]ER[facility]NAN SIMONIUM * CBC (with Diff) (12/03/2010 2:16 PM EDT) White Blood Cell 5.3 4.0 - 10.0 x10(3)/mcL [facility] MILLENNIUM Red Blood Cell 5.00 4.63 - 6.08 x10(6)/mcL [facility] MILLENNIUM Hemoglobin 15.8 13.7 - 17.5 gm/dL [facility] MILLENNIUM Hematocrit 44.5 40.0 - 51.0 % [facility] MILLENNIUM Mean Cell Volume 89.0 79.0 - 92.0 fL [facility] MILLENNIUM Mean Cell Hemoglobin 31.6 25.6 - 32.2 pg [facility] MILLENNIUM Mean Cell Hemoglobin Concentration 35.5 32.0 - 36.5 gm/dL [facility] MILLENNIUM Platelet 183 145 - 370 x10(3)/mcL [facility] MILLENNIUM RDW Standard Deviation 43.2 35.0 - 46.0 fL [facility] MILLENNIUM RDW coefficient of variation 13.4 10.9 - 14.4 % [facility] MILLENNIUM Mean Platelet Volume 9.6 9.0 - 12.0 fL [facility] MILLENNI[facility] Blood specimen (specimen) 12/03/2010 2:16 PM EDT 12/03/2010 2:23 PM EDT Anup Hawkins MD HEMATOLOGY ORDERA BLES [facility] * Reflex Lab-PTH (12/03/2010 2:15 PM EDT) Parathyroid Hormone 39 15 - 65 pg/mL [facility] Blood specimen (specimen) 12/03/2010 2:15 PM EDT 12/03/2010 2:23 PM EDT Anup Hawkins MD CHEMISTRY ORDERAB LES [facility] * (ABNORMAL) Lipid panel (fasting) (12/03/2010 2:15 PM EDT) Cholesterol, Total 207(H) <=199 mg/dL [facility] MILLENNIUM Comment: Recommendations of the NCEP Adult Treatment Panel for the following risk cutoff thresholds for the [place] population: Desirable: <200 mg/dL Borderline High: 200-239 mg/dL High: > or = 240 mg/dL Triglyceride 90 <=149 mg/dL [facility] MILL[facility]NIUM Comment: Reference Range: Normal triglycerides: ??<150 mg/dL Borderline high: ??150-199 mg/dL High: ??200-499 mg/dL Very high: ??>aq=184 mg/dL RAYMOND 2001; 285(19):7494-1413 HDL Cholesterol 43 >=40 mg/dL [facility] Comment: Reference range: ??Low HDL: ?? < 40 mg/dL ??Normal: ?40-60 mg/dL ??Desirable: > 60 mg/dL RAYMOND 2001; 285(19):7088-6923 LDL Cholesterol 146(H) <=99 mg/dL [facility] Comment: Reference range: ?? Optimal: ?<100 mg/dL ?? Near Optimal/Above Optimal: ?? 100-129 mg/dL ?? Borderline high: ?130-159 mg/dL ?? High: ? 160-189 mg/dL ?? Very high: ?>pp=027 mg/dL RAYMOND 2001: 285(19):2946-8320 Cholesterol/HDL Ratio 4.8 ratio [facility] Comment: A Cholesterol to HDL ratio below 4:1 is desirable. ??Studies suggest that increased CAD risk occurs at ratios above 5 for females and above 6 for men. ? [place] Heart Association ??(http://www.americanheart.org) ? Marizol Int Med, 1994; 121:641 ? AM J Med, 1998; 105(1A):48S Blood specimen (specimen) 12/03/2010 2:15 PM EDT 12/03/2010 2:23 PM EDT Anup Hawkins MD CHEMISTRY ORDERAB LES [facility] * (ABNORMAL) Prothrombin Time (12/03/2010 2:15 PM EDT) Prothrombin Time 21.6(H) 12.3 - 14.7 sec [facility] Comment: [facility] Transfusion Committee Guidelines: INR less than 2.0, PTT less than OR equal to 43.5 seconds, or Fibrinogen greater than or equal to 100 mg/dl indicate adequate procoagulant activity for hemostasis in patients without underlying bleeding disorders. International Normalization Ratio 1.8(H) 0.9 - 1.1 [facility] Blood specimen (specimen) 12/03/2010 2:15 PM EDT 12/03/2010 2:23 PM EDT Anup Hawkins MD HEMATOLOGY ORDERA BLES Performing Organization Address [facility] Phone Number [facility] * APTT (12/03/2010 2:15 PM EDT) Partial Thromboplastin Time 32 25 - 37 sec [facility] Comment: Recommended therapeutic PTT range for full dose unfractionated heparin is 80-114 seconds. Blood specimen (specimen) 12/03/2010 2:15 PM EDT 12/03/2010 2:23 PM EDT Anup Hawkins MD HEMATOLOGY ORDERA BLES Performing Organization Address [facility] Phone Number [facility] * Tacrolimus level (12/03/2010 2:15 PM EDT) Tacrolimus 7.7 ng/mL [facility] Comment:Trough therapeutic: 5-15 ng/mL Blood specimen (specimen) 12/03/2010 2:15 PM EDT 12/04/2010 8:13 AM EDT Anup Hawkins MD CHEMISTRY ORDERAB LES Performing Organization Address [facility] Phone Number [facility] * Uric acid (12/03/2010 2:15 PM EDT) Uric Acid 6.0 3.5 - 8.5 mg/dL [facility] Blood specimen (specimen) 12/03/2010 2:15 PM EDT 12/03/2010 2:23 PM EDT Anup Hawkins MD CHEMISTRY ORDERAB LES Performing Organization Address [facility]/State/ZIP Co de Phone Number [facility]ER [facility] * Phosphorus (12/03/2010 2:15 PM EDT) Phosphorus 3.5 2.5 - 4.5 mg/dL [facility] Blood specimen (specimen) 12/03/2010 2:15 PM EDT 12/03/2010 2:23 PM EDT Anup Hawkins MD CHEMISTRY ORDERAB LES Performing Organization Address [facility] de Phone Number [facility] HUERTAENNIUM * Magnesium (12/03/2010 2:15 PM EDT) Magnesium 0.75 0.69 - 1.07 mmol/L [facility] Blood specimen (specimen) 12/03/2010 2:15 PM EDT 12/03/2010 2:23 PM EDT Anup Hawkins MD CHEMISTRY ORDERAB LES Performing Organization Address [facility] de Phone Number [facility] BRADLEYENNI[facility] * (ABNORMAL) Comprehensive metabolic panel (non-fasting) (12/03/2010 2:15 PM EDT) Glucose 137 60 - 199 mg/dL [facility] MILLENNIUM Comment:Diabetes: >=200 mg/d L plus symptoms Blood Urea Nitrogen 35(H) 10 - 20 mg/dL [facility] MILLENNIUM Creatinine 1.92(H) 0.80 - 1.50 mg/dL [facility] Sodium 137 135 - 145 mmol/L [facility]ILL[facility] Potassium 4.5 3.5 - 5.0 mmol/L [facility] Comment: Please note: ??Patients with WBC >100,000 may have falsely elevated Potassium levels. ??For accurate Potassium quantification in these patients send serum separator tube (gold top) for subsequent determinations. ??Contact the Clinical Chemistry Laboratory if there are any questions. Chloride 105 98 - 107 mmol/L [facility] Carbon Dioxide 21(L) 22 - 31 mmol/L [facility]ILL[facility] Anion Gap 11 5 - 15 mmol/L [facility] Calcium 9.3 8.5 - 10.5 mg/dL [facility] Protein, Total 6.9 6.4 - 8.3 gm/dL [facility] Albumin 4.1 3.2 - 5.2 gm/dL [facility] Aspartate Aminotransferase 27 0 - 39 unit/L [facility]ILLEN[facility] Alanine Aminotransferase 19 0 - 55 unit/L [facility] MILLEN[facility] Alkaline Phosphatase 103 40 - 120 unit/L [facility] Bilirubin, Total 1.0 0.2 - 1.3 mg/dL [facility] Bilirubin, [...] disease. References: http://nkdep.nih.gov/resources/NKDEP_Suggestn4Labs_0606_508.pdf http://www.kidney.org/professionals/kls/pdf/faq_gfr.pdf Blood specimen (specimen) 12/03/2010 2:15 PM EDT 12/03/2010 2:23 PM EDT Anup Hawkins MD CHEMISTRY ORDERAB LES [facility] * Phosphorus, urine, 24 hour (12/03/2010 7:00 AM EDT) Phosphorus Concentration, U24 10.4 mg/dL [facility] MILLENNIUM Phosphorus, 24 Hour Urine 0.6 0.4 - 1.3 gm/24hr [facility]ILLEN[facility]UM Urine specimen (specimen) 12/03/2010 7:00 AM EDT 12/03/2010 2:57 PM EDT Anup Hawkins MD URINE ORDERABLES Performing Organization Address [facility] de Phone Number [facility]ERSH[facility]NAN HUERTAENNIUM * (ABNORMAL) Protein, urine, 24 hour (12/03/2010 7:00 AM EDT) Protein Concentration, U24 50 <=80 mg/dL [facility]ILL[facility] Protein, 24 Hour Urine 2.85(H) <=0.15 gm/24hr [facility]ILL[facility] Urine specimen (specimen) 12/03/2010 7:00 AM EDT 12/03/2010 2:57 PM EDT Anup Hawkins MD URINE ORDERABLES Performing Organization Address [facility] de Phone Number [facility]ERSHANNAN SIMONIUM * (ABNORMAL) Uric acid, urine, 24 hour (12/03/2010 7:00 AM EDT) U24 Uric Conc 3.3 mg/dL [facility] Uric Acid, 24 Hour Urine 0.19(L) 0.25 - 0.80 gm/24hr [facility] MILLENNIUM Urine specimen (specimen) 12/03/2010 7:00 AM EDT 12/03/2010 2:57 PM EDT Anup Hawkins MD URINE ORDERABLES Performing Organization Address [facility] de Phone Number [facility]ERSHANNAN HUERTAENNIUM * Creatinine, urine, 24 hour (12/03/2010 7:00 AM EDT) Cre Concentration, U24 17 mg/dL [facility] MILLENNIUM Creatinine, 24 Hour Urine 0.97 0.80 - 1.90 gm/24hr [facility] MILLENNIUM Urine specimen (specimen) 12/03/2010 7:00 AM EDT 12/03/2010 2:57 PM EDT Anup Hawkins MD URINE ORDERABLES [facility] ISHENNI[facility] * (ABNORMAL) Calcium, urine, 24 hour (12/03/2010 7:00 AM EDT) Ca Concentration, U24 0.4 mg/dL [facility] MILLEN[facility]UM Calcium, 24 Hour Urine 22.8(L) 50.0 - 300.0 mg/24hr [facility]ILL[facility] Comment:Reference Range: 50. 0-300.0 mg/24 hour based on diet. Urine specimen (specimen) 12/03/2010 7:00 AM EDT 12/03/2010 2:57 PM EDT Anup Hawkins MD URINE ORDERABLES Performing Organization Address City/[facility] Co de Phone Number CERSHANNAN Leevia documented in this encounter Visit Diagnoses Diagnosis Transplant of kidney- Primary Kidney replaced by transplant documented in this encounter Care Teams Risk Management Professional Relationship Specialty Start Date End Date Abhijeet Laughlin MD [address] [place] [address] PCP - General 06/03/10 07/20/11 documented as of this encounter
--- OUTSIDE RECORDS SUMMARY | 2024-04-22 11:18 | XMS_ITS | Encounter Summary ---
Author Organization [facility] Address [facility] [place] [address] Care Team Providers Care Pump Service Supervisor Name Role Phone Abhijeet Laughlin MD Primary Care Provider [phone] Reason for Visit * Reason Comments Kidney Transplant Follow-up Encounter Details Date Type Department Care Team (Latest Contact Info) Description 12/31/2010 9:00 AM EDT Follow-[place] [address] Anup Hawkins MD [facility] [address] [place] [address] Transplant kidney; Poisoning by antineoplastic and immunosuppressive drugs Social History Tobacco Use Types Packs/Day Years [...] Sign Reading Time Taken Comments Blood Pressure 150/108 12/31/2010 10:00 AM EDT Pulse 51 12/31/2010 10:00 AM EDT Temperature - - Respiratory Rate 20 12/31/2010 10:00 AM EDT Oxygen Saturation - - Inhaled Oxygen Concentration - - Weight - - Height - - Body Mass Index - - documented in this encounter Progress Notes * Anup Hawkins MD - 05/01/2011 1:05 AM EDT Adama is here for a percutaneous renal transplant biopsy of his graft for a rising creatinine. See his SDS admit H&P for details. documented in this encounter Plan of Treatment Not on file documented as of this encounter Visit Diagnoses Diagnosis Transplant kidney Kidney replaced by transplant Poisoning by antineoplastic and immunosuppressive drugs(963.1) Poisoning by antineoplastic and immunosuppressive drugs documented in this encounter Care Teams Pump Service Supervisor Relationship Specialty Start Date End Date Abhijeet Laughlin MD [address] [place] [address] PCP - General 06/03/10 07/20/11 documented as of this encounter
--- OUTSIDE RECORDS SUMMARY | 2024-04-22 11:18 | XMS_ITS | Encounter Summary ---
Author Organization [facility] [place] [address] Care Team Providers Care Sales Project Administrator Name Role Phone Abhijeet Laughlin MD Primary Care Provider [phone] Encounter Details Date Type Department Care Team (Late st Contact Info) Description 05/20/2010 [place] [address] Anup Hawkins MD [facility] [place] [address] Social History Tobacco Use Types Packs/Day Years Used Date Smoking Tobacco: Never Assessed Sex and Gender Information Value Date Recorded Sex Assigned at Not on file Gender Identity Not on file Sexual Orientation Not on file documented as of this encounter Plan of Treatment Not on file documented as of this encounter Procedures Procedure Name Priority Date/Time Associated Diagnosis Comments TACROLIMUS LEVEL Routine 05/20/2010 10:0 0 AM EST documented in this encounter Results * TACROLIMUS LEVEL (05/20/2010 10:00 AM EST) Tacrolimus 5.0 ng/mL [facility] Comment:Trough therapeutic: 5-15 ng/mL Blood specimen (specimen) 05/20/2010 10:00 AM EST 05/21/2010 8:21 AM EST Anup Hawkins MD CHEMISTRY ORDERAB LES Performing Organization Address City/State/[facility] Co de Phone Number [facility] documented in this encounter Visit Diagnoses Not on filedocumented in this encounter Care Teams Sales Project Administrator Relationship Specialty Start Date End Date Abhijeet Laughlin MD [address] [place] [address] PCP - General 06/03/10 07/20/11 documented as of this encounter
--- OUTSIDE RECORDS SUMMARY | 2024-04-22 11:18 | XMS_ITS ---
Author Organization [facility] [place] [address] Care Team Providers Care Processing Manager Name Role Phone Ileana Azevedo APRN Primary Care Provider [phone] Transplant Episode Kidney Recipient [facility] ([place], [place]) - [facility] Organ Received: Right Kidney Transplanted on 11/26/2002 Marked as Not Followed on 07/30/2018 Reason: Graft Lost Kidney CoordinatorAutumn Burgos RN Phone: N/A Fax: N/A Email: N/A [place] Organ Diagnosis Organ Primary Contributory Kidney IgA Nephropathy Donor Information Organ ABO Source Meets Risk Criteria HLA Match Mismatches Cross Match Right Kidney Transplanted A A: B: DR: T cell (Negative) Right Kidney Donor Serology Results Anti-HBcAb No results on file HBsAg No results on file HBsAb No results on file HBV DNA No results on file Anti-HCV No results on file Anti-CMV No results on file Anti-HTLV I/II No results on file RPR/VDRL No results on file EBV IgG No results on file EBV IgM No results on file EBNA No results on file Care Team Name Role Phone Fax Email Autumn Burgos RN Kidney Coordinator N/A N/A N/A Events Post-Transplant Pre-Transplant Admitted: 11/26/2002 Center waitlisted: 2 Transplanted: 11/26/2002 Discharged: 12/03/2002 Dialysis History Dialysis History Start End Type Comments Center 07/30/2018 In-center Hemodialysis T- [facility] Dialysis Center Information Center Phone Fax Address [facility] [phone] [place] [address] [place] [address]
--- OUTSIDE RECORDS SUMMARY | 2024-04-22 11:18 | XMS_ITS | Clinical Summary ---
Author Organization [facility] Address [address] [place] [address] Care Team Providers Care Painter Ordnance Name Role Phone Carroll Fuentes DO Primary Care Provider [phone] Social History Tobacco Use Types Packs/Day Years Used Date Smoking Tobacco: Never Assessed Sex and Gender Information Value Date Recorded Sex Assigned at Not on file Gender Identity Not on file Sexual Orientation Not on file Plan of Treatment Health Maintenance Due Date Last Done Comments Hepatitis C Screen 1960 RSV Immunization ( o r 60+ Years) (1 - 1-dose 60+ series) 2021 COVID-19 Vaccine (2022-24 season) 2023 Care Teams Painter Ordnance Relationship Specialty Start Date End Date Carroll Fuentes DO [address] [place] [address] PCP - General 03/17/12
--- OUTSIDE RECORDS SUMMARY | 2024-04-22 11:18 | XMS_ITS | Encounter Summary ---
Author Organization [facility] Address [facility] [place] [address] Care Team Providers Care Service Desk Team Lead Name Role Phone Abhijeet Laughlin MD Primary Care Provider [phone] Encounter Details Date Type Department Care Team (Late st Contact Info) Description 06/23/2010 [place] [address] Anup Hawkins MD [facility] [place] [address] Social History Tobacco Use Types Packs/Day Years Used Date Smoking Tobacco: Never Assessed Sex and Gender Information Value Date Recorded Sex Assigned at Not on file Gender Identity Not on file Sexual Orientation Not on file documented as of this encounter Plan of Treatment Not on file documented as of this encounter Procedures Procedure Name Priority Date/Time Associated Diagnosis Comments TACROLIMUS LEVEL Routine 06/23/2010 10:3 5 AM EST documented in this encounter Results * TACROLIMUS LEVEL (06/23/2010 10:35 AM EST) Tacrolimus 3.6 ng/mL [facility] Comment:Trough therapeutic: 5-15 ng/mL Blood specimen (specimen) 06/23/2010 10:35 AM EST 06/24/2010 8:44 AM EST Anup Hawkins MD CHEMISTRY ORDERAB LES Performing Organization Address City/State/[facility] Co de Phone Number [facility] documented in this encounter Visit Diagnoses Not on filedocumented in this encounter Care Teams Service Desk Team Lead Relationship Specialty Start Date End Date Abhijeet Laughlin MD [address] [place] [address] PCP - General 06/03/10 07/20/11 documented as of this encounter
--- OUTSIDE RECORDS SUMMARY | 2024-04-22 11:18 | XMS_ITS | Encounter Summary ---
Author Organization [facility] Address [facility] [place] [address] Care Team Providers Care Package Line Operator Name Role Phone Abhijeet Laughlin MD Primary Care Provider [phone] Encounter Details Date Type Department Care Team (Latest Contact Info) Description 10/10/2010 6:23 PM EDT - 10/10/2010 11:59 PM EDT Hospital [place] [address] Anup Hawkins MD [facility] [place] [address] Discharge Disposition: Home Social History Tobacco Use Types Packs/Day Years Used Date Smoking Tobacco: Never Assessed Sex and Gender Information Value Date Recorded Sex Assigned at Not on file Gender Identity Not on file Sexual Orientation Not on file documented as of this encounter Medications at Time of Discharge Medication Sig Dispensed Refills Start Date End Date tacrolimus (PROGRAF) 1 mg capsule 2mg in AM and 1mg in PM, PO, as directed 07/24/2010 01/01/2011 hydrALAZINE (APRESOLINE) 50 mg tablet 50 MG = 1 Tablet(s), PO, Twice daily 06/23/2010 06/03/2011 metoprolol tartrate (LOPRESSOR) 50 mg tablet 50 MG = 1 Tablet(s), PO, Twice daily 04/08/2010 12/03/2010 leveTIRAcetam (KEPPRA) 1,000 mg tablet 1000 MG = 1 Tablet(s), PO, Twice daily 04/08/2010 04/14/2011 DILTiazem (CARTIA XT) 120 mg 24 hr capsule 120 MG = 1 Capsule(s), PO, Once daily 04/08/2010 02/15/2012 documented as of this encounter Plan of Treatment Not on file documented as of this encounter Procedures Procedure Name Priority Date/Time Associated Diagnosis Comments TACROLIMUS LEVEL Routine 10/10/2010 8:40 AM EDT documented in this encounter Results * TACROLIMUS LEVEL (10/10/2010 8:40 AM EDT) Tacrolimus 4.5 ng/mL [facility] Comment:Trough therapeutic: 5-15 ng/mL Blood specimen (specimen) 10/10/2010 8:40 AM EDT 10/13/2010 8:24 AM EDT Anup Hawkins MD CHEMISTRY ORDERAB LES [facility] documented in this encounter Visit Diagnoses Not on filedocumented in this encounter Care Teams Package Line Operator Relationship Specialty Start Date End Date Abhijeet Laughlin MD [address] [place] [address] PCP - General 06/03/10 07/20/11 documented as of this encounter
--- OUTSIDE RECORDS SUMMARY | 2024-04-22 11:18 | XMS_ITS | Encounter Summary ---
Author Organization [facility] [address] Care Team Providers Care Underground Supervisor Name Role Phone Abhijeet Laughlin MD Primary Care Provider [phone] Encounter Details Date Type Department Care Team (Late st Contact Info) Description 11/20/2010 [place] [address] Social History Tobacco Use Types Packs/Day Years Used Date Smoking Tobacco: Never Assessed Sex and Gender Information Value Date Recorded Sex Assigned at Not on file Gender Identity Not on file Sexual Orientation Not on file documented as of this encounter Plan of Treatment Not on file documented as of this encounter Procedures Procedure Name Priority Date/Time Associated Diagnosis Comments LAB SCAN Routine 11/17/2010 documented in this encounter Results * Scan Doc: Lab (11/17/2010) Historical Provider MD [facility] SCAN EX T ORDR/RSLT documented in this encounter Visit Diagnoses Not on filedocumented in this encounter Care Teams Underground Supervisor Relationship Specialty Start Date End Date Abhijeet Laughlin MD [address] [place] [address] PCP - General 06/03/10 07/20/11 documented as of this encounter
--- OUTSIDE RECORDS SUMMARY | 2024-04-22 11:18 | XMS_ITS | Encounter Summary ---
Author Organization [facility] Address [address] [place] [address] Care Team Providers Care Multifocal Lens Inspector Name Role Phone Carroll Fuentes DO Primary Care Provider [phone] Reason for Visit * Reason Onset Date Comments Discuss Possible Transfer 09/18/2019 Encounter Details Date Type Department Care Team (Late st Contact Info) Description 09/18/[address] [phone] Isacc Lai MD [address] [address] Discuss Possible Transfer Social History Tobacco Use Types Packs/Day Years Used Date Smoking Tobacco: Never Assessed Sex and Gender Information Value Date Recorded Sex Assigned at Not on file Gender Identity Not on file Sexual Orientation Not on file documented as of this encounter Miscellaneous Notes * Telephone Encounter - Isacc Lai MD - 09/18/2019 1234 EDT Medicine hospitalist telephone encounter Date: 09/18/2019 Time: 12: 30 5 PM Called by PANCHITO Berg in the emergency department at [facility] in [place], [place] to discuss transferring this patient to our facility. Patient is a [id number] history of end-stage renal disease on dialysis Wednesday/Wednesday/Wednesday and followed by [facility] nephrology as well as a prior history of TBI and subarachnoid hemorrhage. He has been struggling w ith labile blood pressures for some time with intermittent hypertension followed by hypotension. Hewas in the emergency room yesterday with hypertension but was subsequently discharged home. He presented to dialysis today where he was noted to be bradycardic to 39 and hypotensive and they declinedto dialyze him and sent him to the ED. Since being there his blood pressure has ranged from 52-126/41-76 and his heart rate has been 48-112. The patient has been asymptomatic throughout his stay in the emergency department even when his systolic blood pressure was 52. Of note the patient has had several antihypertensive medications added to his regimen in the last couple of months, most recently minoxidil. He is saturating well on room air. His potassium is 5.2. His serum bicarbonate is 27. They did do a head CT which was normal. Given that he has no need for urgent dialysis I thought if she felt he needed to be observed overnight with changes in his antihypertensives that could be done at their facility. Since he is followed by [facility] nephrology they could coordinate any medication changes through his primary impregnator and drier helper. Additionally she indicated that the dialysis unit in [place] would be willing to trial dialysis again tomorrow. She will reassess her hospitals willingness to admit the patient and get back to us if issues arise. Isacc Lai MD documented in this encounter Plan of Treatment Not on file documented as of this encounter Visit Diagnoses Not on filedocumented in this encounter Additional Health Concerns Infection Onset Date Last Indicated Resolved Time COVID-19 11/14/2021 11/14/2021 12/04/2021 22:1 6 EDT documented as of this encounter Care Teams Multifocal Lens Inspector Relationship Specialty Start Date End Date Carroll Fuentes DO [address] [place] [address] PCP - General 03/17/12 documented as of this encounter
--- OUTSIDE RECORDS SUMMARY | 2024-04-22 11:18 | XMS_ITS | Encounter Summary ---
Author Organization [facility] Address [address] [place] [address] Care Team Providers Care Transport Aircrewman Name Role Phone Carroll Fuentes DO Primary Care Provider [phone] Encounter Details Date Type Department Care Team (Late st Contact Info) Description 05/24/2012 Results Only [facility] Laboratory Services - [facility] [address] [place] [id number] Bharat Zhang MD [address] [place] [id number] Social History Tobacco Use Types Packs/Day Years Used Date Smoking Tobacco: Never Assessed Sex and Gender Information Value Date Recorded Sex Assigned at Not on file Gender Identity Not on file Sexual Orientation Not on file documented as of this encounter Plan of Treatment Not on file documented as of this encounter Procedures Procedure Name Priority Date/Time Associated Diagnosis Comments SURGICAL PATHOLOGY Routine 05/24/2012 0:00 EST documented in this encounter Results * SURGICAL PATHOLOGY (05/24/2012 0:00 EST) Pathology Report: SURGICAL PATHOLOGY REPORT Reports generated via electronic interface contain original data; however they are lacking the format of the original report. Caution should be taken when reading/interpreti ng unformatted reports. Name: ? CHRISTY AMBROSE ? Accession #: ? [id number] ? : ? 1960 (Age: 51) ??M ? Collect Date: ? 05/24/2012 ? Location: ? [facility] ? Receive Date: ? 05/24/2012 ? Provider: BHARAT ZHANG MD Copy to: CARROLL FUENTES DO ??[place] [address] ? Final Pathologic Diagnosis: ? Colon, sigmoid, polypectomy:- Tubular adenoma. ?? Document reviewed and electronically signed by: NATALIE MONTANO MD Report ??Date: 05/26/2012 17:31 By the signature above, the attending physician certifies that he/she has personally conducted a gross and/or microscopic examination of the described specimens and rendered or confirmed the above diagnosis. Specimen(s) Received: ? Sigmoid polyp Clinical History: ? Screening Gross Description: ? Received in formalin labelled Leanna, Christy and sigmoid polyp is a smith-pink polypoid structure measuring 0.7 x 0.7 x 0.4 cm. ??The resection margin is inked black. ??The specimen is trisected and submitted entirely in one cassette. ??(WOODY Palacio)/clare End of Report JUDITH GODOY 05/24/2012 05/24/2012 16: 09 EST Bharat Zhang MD PATHOLOGY ORDERABLE S JUDITH GODOY [address] [place] [address] documented in this encounter Visit Diagnoses Not on filedocumented in this encounter Care Teams Transport Aircrewman Relationship Specialty Start Date End Date Carroll Fuentes DO [address] [place] [address] PCP - General 03/17/12 documented as of this encounter
--- OUTSIDE RECORDS SUMMARY | 2024-04-22 11:18 | XMS_ITS | Encounter Summary ---
Author Organization [facility] Address [facility] [place] [address] Care Team Providers Care Promos Executive Producer Name Role Phone Abhijeet Laughlin MD Primary Care Provider [phone] Encounter Details Date Type Department Care Team (Latest Contact Info) Description 08/26/2010 6:43 PM EST - 08/26/2010 11:59 PM [facility] Hospital [place] [address] Anup Hawkins MD [facility] [address] [place] [address] Discharge Disposition: Home Social History Tobacco Use [...] Date/Time Associated Diagnosis Comments TACROLIMUS LEVEL Routine 08/26/2010 10:0 0 AM EST documented in this encounter Results * TACROLIMUS LEVEL (08/26/2010 10:00 AM EST) Tacrolimus 4.1 ng/mL [facility] Comment:Trough therapeutic: 5-15 ng/mL Blood specimen (specimen) 08/26/2010 10:00 AM EST 08/27/2010 8:11 AM EST Anup Hawkins MD CHEMISTRY ORDERAB LES Performing Organization Address City/State/[facility] Co de Phone Number [facility] documented in this encounter Visit Diagnoses Not on filedocumented in this encounter Care Teams Promos Executive Producer Relationship Specialty Start Date End Date Abhijeet Laughlin MD [address] [place] [address] PCP - General 06/03/10 07/20/11 documented as of this encounter
--- OUTSIDE RECORDS SUMMARY | 2024-04-22 11:18 | XMS_ITS | Encounter Summary ---
Author Organization [facility] Address [facility] [place] [address] Care Team Providers Care Lead Ios Developer Name Role Phone Abhijeet Laughlin MD Primary Care Provider [phone] Encounter Details Date Type Department Care Team (Late st Contact Info) Description 04/22/2010 [place] [address] Anup Hawkins MD [facility] [place] [address] Social History Tobacco Use Types Packs/Day Years Used Date Smoking Tobacco: Never Assessed Sex and Gender Information Value Date Recorded Sex Assigned at Not on file Gender Identity Not on file Sexual Orientation Not on file documented as of this encounter Plan of Treatment Not on file documented as of this encounter Procedures Procedure Name Priority Date/Time Associated Diagnosis Comments TACROLIMUS LEVEL Routine 04/22/2010 9:25 AM EDT documented in this encounter Results * TACROLIMUS LEVEL (04/22/2010 9:25 AM EDT) Tacrolimus 5.5 ng/mL [facility] Comment:Trough therapeutic: 5-15 ng/mL Blood specimen (specimen) 04/22/2010 9:25 AM EDT 04/23/2010 8:14 AM EDT Anup Hawkins MD CHEMISTRY ORDERAB LES Performing Organization Address City/State/[facility] Co de Phone Number [facility] documented in this encounter Visit Diagnoses Not on filedocumented in this encounter Care Teams Lead Ios Developer Relationship Specialty Start Date End Date Abhijeet Laughlin MD [address] [place] [address] PCP - General 06/03/10 07/20/11 documented as of this encounter
--- OUTSIDE RECORDS SUMMARY | 2024-04-22 11:18 | XMS_ITS | Encounter Summary ---
[place] [address] Care Team Providers Care Cupola Operator Name Role Phone Abhijeet Laughlin MD Primary Care Provider [phone] Encounter Details Date Type Department Care Team (Late st Contact Info) Description 12/29/2010 Abstract [place] [address] Karuna Sheldon, RN Social History Tobacco Use Types Packs/Day [...] filedocumented in this encounter Care Teams Cupola Operator Relationship Specialty Start Date End Date Abhijeet Laughlin MD [address] [place] [address] PCP - General 06/03/10 07/20/11 documented as of this encounter
--- OUTSIDE RECORDS SUMMARY | 2024-04-22 11:18 | XMS_ITS | Encounter Summary ---
[place] [address] Care Team Providers Care Athletic Equipment Manager Name Role Phone Abhijeet Laughlin MD Primary Care Provider [phone] Encounter Details Date Type Department Care Team (Late st Contact Info) Description 12/02/2010 Abstract [place] [address] Rachel Bloom, RN Social History Tobacco Use Types Packs/Day Years Used Date Smoking Tobacco: Never Assessed Sex and Gender Information Value Date Recorded Sex Assigned at Not on file Gender Identity Not on file Sexual Orientation Not on file documented as of this encounter Plan of Treatment Not on file documented as of this encounter Visit Diagnoses Not on filedocumented in this encounter Care Teams Athletic Equipment Manager Relationship Specialty Start Date End Date Abhijeet Laughlin MD [address] [place] [address] PCP - General 06/03/10 07/20/11 documented as of this encounter
--- OUTSIDE RECORDS SUMMARY | 2024-04-22 11:18 | XMS_ITS | Referral Summary ---
Author Organization [facility] Address [address] [place] [address] Care Team Providers Care Diesel Engine Tester Name Role Phone Carroll Fuentes DO Primary Care Provider [phone] Social History Tobacco Use Types Packs/Day Years Used Date Smoking Tobacco: Never Assessed Sex and Gender Information Value Date Recorded Sex Assigned at Not on file Gender Identity Not on file Sexual Orientation Not on file Plan of Treatment Not on file Care Teams Diesel Engine Tester Relationship Specialty Start Date End Date Carroll Fuentes, [address] [place] [id number] PCP - General 03/17/12
--- OUTSIDE RECORDS SUMMARY | 2024-04-22 11:18 | XMS_ITS | Encounter Summary ---
Author Organization [facility] Address [facility] [place] [address] Care Team Providers Care Circular Stuffer Name Role Phone Abhijeet Laughlin MD Primary Care Provider [phone] Reason for Visit * Reason Comments Kidney Transplant Follow-up Encounter Details Date Type Department Care Team (Latest Contact Info) Description 12/03/2010 3:20 PM EDT Follow-Up [place] [address] Naz Anthony [facility] [place] [address] Transplant kidney (Primary Dx); Poisoning by antineoplastic and immunosuppressive drugs; Proteinuria; Hematuria; IgA nephropathy Discharge Disposition: Home Social History Tobacco Use [...] Sign Reading Time Taken Comments Blood Pressure 117/77 12/03/2010 3:00 PM EDT Pulse 61 12/03/2010 3:00 PM EDT Temperature 36.8 ??C (98.3 ??F) 12/03/2010 3:00 PM ED T Respiratory Rate - - Oxygen Saturation - - Inhaled Oxygen Concentration - - Weight 101.1 kg (222 lb 12.8 oz) 12/03/2010 3:00 PM EDT Height 182.9 cm (6') 12/03/2010 3:00 PM EDT Body Mass Index 30.22 12/03/2010 3:00 PM EDT documented in this encounter Progress Notes * Naz Anthony APRN - 05/07/2011 3:07 PM EDTAddended by: NAZ ANTHONY on: 05/07/2011 Modules accepted: Level of Service * Naz Anthony APRN - 05/07/2011 3:04 PM EDT Subjective: Patient ID: Adama Ram is a 50 y.o. 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 HPI Comments: Ptnt returns to clinic for routine, post-txp f/u. Denies any health questions or concerns at this time. Reports taking all medications as prescribed and on a consistent basis. Appetite and activity level are good. No serious illnesses, injuries, or hospitalizations since last clinic visit. Patient Active Problem List Diagnoses Code ??? Epilepsy 345.90A ??? End stage renal disease 585.6 ??? Gout 274.9H ??? Hypertension 401.9AJ ??? Left leg DVT 453.40BK ??? Kidney replaced by transplant V42.0 ??? IgA nephropathy 583.9CE Review of Systems Constitutional: Negative for fever, activity change, appetite change and fatigue. HENT: Negative. Eyes: Negative. Respiratory: Negative for cough, chest tightness and shortness of breath. Cardiovascular: Negative for chest pain, palpitations and leg swelling. Gastrointestinal: Negative for nausea, vomiting, abdominal pain, diarrhea and constipation. Genitourinary: Negative for dysuria, urgency, frequency, hematuria, decreased urine volume and difficulty urinating. Musculoskeletal: Negative. Skin: Negative. Neurological: Negative for dizziness, tremors and headaches. Hematological: Negative. Psychiatric/Behavioral: Negative. Objective: BP 117/77 Pulse 61 Temp(Src) 36.8 ??C (98.3 ??F) (Oral) Ht 182.9 cm (6') Wt 101.061 kg (222 lb 12.8 oz) BMI 30.22 kg/m2 Physical Exam Vitals reviewed. Constitutional: He is oriented to person, place, and time. He appears well- developed and well-nourished. No distress. HENT: Head: Normocephalic and atraumatic. Eyes: Conjunctivae and EOM are normal. Pupils are equal, round, and reactive to light. No scleral icterus. Neck: Normal range of motion. Neck supple. No JVD present. No thyromegaly present. Cardiovascular: Normal rate, regular rhythm and normal heart sounds. Pulmonary/Chest: Effort normal and breath sounds normal. No respiratory distress. Abdominal: Soft. Bowel sounds are normal. He exhibits no distension. No tenderness. He has no rebound and no guarding. No bruits auscultated over graft. Musculoskeletal: Normal range of motion. He exhibits no edema. Neurological: He is alert and oriented to person, place, and time. No cranial nerve deficit. Coordination normal. Skin: Skin is warm and dry. No rash noted. He is not diaphoretic. Assessment and Plan: Post-transplant Status: Mr. Ram is 8 years s/p kidney txp and had been maintaining stable graft function up until now. Today's labs are concerning d/t elevated serum creatinine and increased hematuria and proteinuria. I have discussed findings with Dr. 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 Ptnt will be scheduled for Angela/S guided, percutaneous renal txp ultrasound at this time. A significant portion of today's visit was spent discussing the possibility of recurrent disease with the patient, the implications this has on his renal graft funciton, biopsy procedure, and f/u plans. Ptnts questions were answered. Immunosuppression: Prograf: 2mg in AM and 1mg in PM. Cellcept: None. Prednisone: None. Rapamune: None. Hydration Status: Ptnt encouraed to consume no less than 2-3L/d of non- caffeinated fluid and more with increased physical activity and /or hot weather. Minimize/avoid caffeine intake. Hypertension Management: Adequate control. Continue antihypertensive medications as previously prescribed. Calcium and Phosphorous balance reviewed. Magnesium balance reviewed. Routine Health Care: Ptnt is strongly encouraged to keep up with all age appropriate, recommended, post-transplant, routine health maintenance tests and screenings. These include, but are not limitedto, a yearly flu shot, pneumovax Q5 years, UTD tetanus booster, yearly ophthalmology exam, biannualdental exam (with antibiotic prophylaxis), monthly skin self checks, dermatology exam as advised, Dexascan as advised, colonoscopy Q5 years, yearly PSA/SADAF, and routine physical exam with one's PCP on a yearly basis. RTC: For renal txp biopsy which is to be scheduled for this week or next. * Jp Carreon - 01/09/2011 5:37 PM EDT Subjective: Patient ID: Adama Ram is a 50 y.o. male. HPI Review of Systems Objective: Physical Exam Assessment and Plan: No problem-specific visit notes found for this encounter. * Janay Hilario MSW - 12/03/2010 3:33 PM EDT Pt presents to transplant clinic for follow up of his kidney transplant in 2002. Pt is doing well but had some questions about completing re-enrollment forms for [employer]/Prograf assistance. Pt states he has been getting Prograf in the mail in 90 day supplies. It seems that pt never completed his re-enrollment form or provided proof of income but has been getting Prograf since 2009. I helped pt to complete his portion of the application and sent in to Nancy Frost in [place]. I encouraged pt to also send in pay stubs or a W2 form as proof of his current income. Plan: I will f/u with pt/fam as part of transplant team. documented in this encounter Plan of Treatment Not on file documented as of this encounter Results * (ABNORMAL) Urinalysis with microscopic (12/03/2010 2:25 PM EDT) Glucose, Urine Dipstick Negative Negative [...] Urine Dipstick Clear Clear CERNER MILLENNIUM Specific [place] Urine Automated 1.010 1.002 - 1.030 CERNER MILLENNIUM Color, Urine Dipstick Yellow Yellow CERNER MILLENNIUM RBC, Urine 4(H) 0 - 3 /HPF CERNER MILLENNIUM WBC, Urine <1 0 - 3 /HPF CERNER MILLENNIUM Bacteria, Urine Rare(A) None /HPF CERNER MILLENNIUM Urine specimen (specimen) 12/03/2010 2:25 PM EDT 12/03/2010 2:32 PM EDT Anup Hawkins MD URINE ORDERABLES Performing Organization Address City/[facility] Co de Phone Number [facility] MILLENNIUM * (ABNORMAL) TSH (12/03/2010 2:15 PM EDT) Thyroid Stimulating Hormone 5.71(H) 0.27 - 4.20 mcIU/mL CERNER MILLENNIUM Blood specimen (specimen) 12/03/2010 2:15 PM EDT 12/03/2010 2:23 PM EDT Anup Hawkins MD CHEMISTRY ORDERAB LES Performing Organization Address City/State/[facility] Co de Phone Number [facility] MILLENNIUM documented in this encounter Visit Diagnoses Diagnosis Transplant kidney- Primary Kidney replaced by transplant Poisoning by antineoplastic and immunosuppressive drugs(963.1) Poisoning by antineoplastic and immunosuppressive drugs Proteinuria Hematuria Hematuria, unspecified IgA nephropathy Nephritis and nephropathy, not specified as acute or chronic, with unspecified pathological lesion in kidney documented in this encounter Care Teams Circular Stuffer Relationship Specialty Start Date End Date Abhijeet Laughlin MD [address] [place] [address] PCP - General 06/03/10 07/20/11 documented as of this encounter
--- OUTSIDE RECORDS SUMMARY | 2024-04-22 11:18 | XMS_ITS | Encounter Summary ---
Author Organization [facility] Address [facility] [place] [address] Care Team Providers Care Evp Operations Name Role Phone Abhijeet Laughlin MD Primary Care Provider [phone] Encounter Details Date Type Department Care Team (Latest Contact Info) Description 07/16/2010 6:32 PM EST - 07/16/2010 11:59 PM [facility] Hospital [place] [address] Anup Hawkins MD [facility] [place] [address] Discharge Disposition: Home Social History Tobacco Use Types Packs/Day Years Used Date Smoking Tobacco: Never Assessed Sex and Gender Information Value Date Recorded Sex Assigned at Not on file Gender Identity Not on file Sexual Orientation Not on file documented as of this encounter Medications at Time of Discharge Medication Sig Dispensed Refills Start Date End Date hydrALAZINE (APRESOLINE) 50 mg tablet 50 MG [...] on filedocumented in this encounter Care Teams Evp Operations Relationship Specialty Start Date End Date Abhijeet Laughlin MD [address] [place] [address] PCP - General 06/03/10 07/20/11 documented as of this encounter
--- OUTSIDE RECORDS SUMMARY | 2024-04-22 11:18 | XMS_ITS | Encounter Summary ---
Author Organization [facility] Address [address] [place] [address] Care Team Providers Care Truck Crane Operator Name Role Phone Alfredo Carroll Parth DO Primary Care Provider [phone] Encounter Details Date Type Department Care Team (Late st Contact Info) Description 01/22/2016 Results Only [facility] [phone] Carroll Fuentes, DO [address] [place], [place] [address] Social History Tobacco Use Types Packs/Day Years Used Date Smoking Tobacco: Never Assessed Sex and Gender Information Value Date Recorded Sex Assigned at Not on file Gender Identity Not on file Sexual Orientation Not on file documented as of this encounter Plan of Treatment Not on file documented as of this encounter Procedures Procedure Name Priority Date/Time Associated Diagnosis Comments SURGICAL PATHOLOGY Routine 01/22/2016 8:48 EDT documented in this encounter Results * SURGICAL PATHOLOGY (01/22/2016 8:48 EDT) Pathology Report: SURGICAL PATHOLOGY REPORT Reports generated via electronic interface contain original data; however they are lacking the format of the original report. Caution should be taken when reading/interpret ing unformatted reports. Name: ? CHRISTY AMBROSE ? Accession #: ? [id number] ? : ? 1960 (Age: 55) ??M ? Collect Date: ? 01/22/2016 ? Location: ? [facility] ? Receive Date: ? 01/23/2016 ? Provider: CARROLL FUENTES DO Copy to: ? Final Pathologic Diagnosis: SKIN OF THORAX, MID POSTERIOR, BIOPSY: - Atypical squamous proliferation with features suspicious for squamous cell carcinoma. ??See comment. - Squamous proliferation present at edges and base of biopsy specimen. Comment: The biopsy is minute and consists of fragments of a proliferation of atypical squamous epithelium. ??In areas, the epithelium has an infiltrative pattern and features suspicious for squamous cell carcinoma. ??A definitive diagnosis, however, is precluded by the small size and fragmented nature of the biopsy. Correlation with the physical examination is recommended. ??(Dr. Peters)/clare Microscopic Description: Sections consist of a minute fragment of skin that consists primarily of epithelium. ??There is a small portion of dermis. ??The epithelium is highly irregular with an infiltrative pattern in some regions. ??The epithelial cells show keratinization and a moderate degree of atypia with nuclear enlargement and hyperchromasia. ??There is abnormal keratinization. ??Deeper sections have similar features. ??(Dr. Peters)/clare Document reviewed and electronically signed by: KALA PETERS MD Report ??Date: 01/27/2016 16:54 By the signature above, the attending physician certifies that he/she has personally conducted a gross and/or microscopic examination of the described specimens and rendered or confirmed the above diagnosis. Specimen(s) Received: Mid post thorax Clinical History: 2.0 cm punch, raised red papule Gross Description: ? Received in formalin labelled with proper patient identification (initials F, D) and mid post thorax is a shave biopsy of smith-brown mottled skin (0.1 x 0.1 x 0.2 cm). Submitted intact in 1. Susanna Salmeron 01/24/2016 10:04 AM End of Report [facility] 01/22/2016 8:48 EDT 01/23/2016 8:48 EDT Carroll Fuentes DO PATHOLOGY ORDERABL ES [facility] [address] [place] [address] documented in this encounter Visit Diagnoses Not on filedocumented in this encounter Care Teams Truck Crane Operator Relationship Specialty Start Date End Date Carroll Fuentes, [address] [place] [address] PCP - General 03/17/12 documented as of this encounter
--- OUTSIDE RECORDS SUMMARY | 2024-04-22 11:18 | XMS_ITS | Encounter Summary ---
Author Organization [facility] Address [address] [place] [address] Care Team Providers Care In Processing Instructor Name Role Phone Carroll Fuentes DO Primary Care Provider [phone] Encounter Details Date Type Department Care Team (Late st Contact Info) Description 07/18/2021 Lab Requisition [facility] Pathology & Laboratory Medicine - [address] [address] Outr Resulting Lab, Provider Social History Tobacco Use Types Packs/Day Years Used Date Smoking Tobacco: Never Assessed Sex and Gender Information Value Date Recorded Sex Assigned at Not on file Gender Identity Not on file Sexual Orientation Not on file documented as of this encounter Plan of Treatment Not on file documented as of this encounter Procedures Procedure Name Priority Date/Time Associated Diagnosis Comments ZZCOVID-19 TEST [facility] LAB PCR Today 07/18/2021 12:39 EST COVID-19 TESTING Routine 07/18/2021 12:3 9 EST documented in this encounter Results * COVID-19 TEST [facility] PCR (07/18/2021 12:39 EST) Swab 07/18/2021 12:3 9 EST 07/18/2021 21:42 EST Provider Outr Resulting Lab MICROBIOLOGY - GENERAL ORDERABLES [facility] [address] [place] [address] * COVID-19 TESTING (07/18/2021 12:39 EST) COVID-19 rt-PCR Result Negative Negative 07/19/2021 14:52 EST [facility] Comment: This test has not been FDA cleared or approved. This test has been authorized by FDA under an EUA for use by authorized laboratories. This test has been authorized only for detection of nucleic acid from 2019-nCoV, not for any other viruses or pathogens. This test is only authorized for the duration of the declaration that circumstances exist justifying the authorization of emergency use of in vitro diagnostic tests for detection and/or diagnosis of 2019-nCoV under section 564(b)(1) of Act, 21 U.S.C ?? 360bbb-3(b) (1), unless the authorization is terminated or revoked sooner. Negative results do not preclude 2019-nCoV infection and should not be used as the sole basis for treatment or other patient management decisions. Negative results must be combined with clinical observations, patient history, and epidemiological information. Testing was performed using the aneudy SARS-CoV-2 assay ([employer] on the Aenudy 6800 System Performing Lab Aneudy [address] [facility] Lab 07/19/2021 14:52 EST [facility] Swab 07/18/2021 12:3 9 EST 07/18/2021 21:42 EST Provider Outr Resulting Lab MICROBIOLOGY - GENERAL ORDERABLES [facility] [address] [place] [address] documented in this encounter Visit Diagnoses Not on filedocumented in this encounter Additional Health Concerns Infection Onset Date Last Indicated Resolved Time COVID-19 11/14/2021 11/14/2021 12/04/2021 22:1 6 EDT documented as of this encounter Care Teams In Processing Instructor Relationship Specialty Start Date End Date Carroll Fuentes DO [address] [place] [address] [place] [address] PCP - General 03/17/12 documented as of this encounter
--- OUTSIDE RECORDS SUMMARY | 2024-04-22 11:18 | XMS_ITS | Encounter Summary ---
Author Organization [facility] Address [facility] [place] [address] Care Team Providers Care Sql Etl Developer Name Role Phone Abhijeet Laughlin MD Primary Care Provider [phone] Encounter Details Date Type Department Care Team (Latest Contact Info) Description 11/17/2010 6:14 PM EDT - 11/17/2010 11:59 PM EDT Hospital [place] [address] Anup Hawkins MD [facility] [place] [address] Discharge Disposition: Home Social History Tobacco Use [...] Date/Time Associated Diagnosis Comments TACROLIMUS LEVEL Routine 11/17/2010 8:30 AM EDT documented in this encounter Results * TACROLIMUS LEVEL (11/17/2010 8:30 AM EDT) Tacrolimus 4.3 ng/mL [facility] DO[facility] Comment:Trough therapeutic: 5-15 ng/mL Blood specimen (specimen) 11/17/2010 8:30 AM EDT 11/18/2010 8:10 AM EDT Anup Hawkins MD CHEMISTRY ORDERAB LES [facility] DOYLE documented in this encounter Visit Diagnoses Not on filedocumented in this encounter Care Teams Sql Etl Developer Relationship Specialty Start Date End Date Abhijeet Laughlin MD [address] [place] [address] PCP - General 06/03/10 07/20/11 documented as of this encounter
--- OUTSIDE RECORDS SUMMARY | 2024-04-22 11:18 | XMS_ITS | Encounter Summary ---
Author Organization [facility] Address [address] [place] [address] Care Team Providers Care Stretching Machine Operator Name Role Phone Carroll Fuentes DO Primary Care Provider [phone] Encounter Details Date Type Department Care Team (Late st Contact Info) Description 05/01/2022 Lab Requisition [facility] Pathology & Laboratory Medicine - [address] [address] Outr Resulting Lab, Provider Social History Tobacco [...] Priority Date/Time Associated Diagnosis Comments ZZCOVID-19 TEST [facility] PCR Today 04/30/2022 16:40 EDT COVID-19 TESTING Routine 04/30/2022 16:4 0 EDT documented in this encounter Results * COVID-19 TEST [facility] LAB PCR (04/30/2022 16:40 EDT) Swab 04/30/2022 16:4 0 EDT 05/01/2022 17:36 EDT Provider Outr Resulting Lab MICROBIOLOGY - GENERAL ORDERABLES [facility] [address] [place] [address] * COVID-19 TESTING (04/30/2022 16:40 EDT) COVID-19 rt-PCR Result Negative Negative 05/02/2022 10:49 EDT [facility] Comment: This test has not [...] was performed using the aneudy SARS-CoV-2 assay ([employer] on the Aneudy 6800 System Performing Lab [address] [facility] Lab 05/02/2022 10:49 EDT [facility] Swab 04/30/2022 16:4 0 EDT 05/01/2022 17:36 EDT Provider Outr Resulting Lab MICROBIOLOGY - GENERAL ORDERABLES [facility] [address] [place] [address] documented in this encounter Visit Diagnoses Not on filedocumented in this encounter Care Teams Stretching Machine Operator Relationship Specialty Start Date End Date Carroll Fuentes DO [address] [place] [address] PCP - General 03/17/12 documented as of this encounter
--- OUTSIDE RECORDS SUMMARY | 2024-04-22 11:18 | XMS_ITS ---
Author Organization [facility] [place] [address] Care Team Providers Care Casting Machine Operator Automatic Name Role Phone Roberto CarlosKellyIleana Lorenzo WINSTON Primary Care Provider [phone] Transplant Episode Kidney Candidate [facility] ([place], [place]) - [facility] Referred on 11/07/2019 Marked as Not a Candidate on 12/20/2019 Kidney CoordinatorRachelle Luther RN Phone: N/A Fax: N/A Email: N/A Scores Score Value Updated Exceptions/Reas ons CPRA Not available EPTS (Calc) 85 04/22/2024 [place] Organ Diagnosis Organ Primary Contributory Kidney IgA Nephropathy Care Team Name Role Phone Fax Email Rachelle Luther RN Kidney Coordinator N/A N/A N/A Trever Boyd MD Referring Physician N/A N/A N/A Leisa Angulo Quality Engineering Manager N/A N/A N/A JIMENA Meade Machine Greaser N/A N/A N/A Anup Hawkins MD Transplant Physician N/A N/A N/A Events Pre-Transplant Referred: 11/07/2019 Committee: 12/20/2019 Pending Checklist Tasks (Due on or before 05/23/2024) Name Due Date Attached Appoint ment Coordinator Review of Records 05/16/2020 Dialysis History Dialysis History Start End Type Comments Center 07/30/2018 In-center Hemodialysis [facility] Dialysis Center Information Center Phone Fax Address [facility] [phone] [place] [address] [place] [phone]
--- OUTSIDE RECORDS SUMMARY | 2024-04-22 11:18 | XMS_ITS | Encounter Summary ---
Author Organization [facility] Address [facility] [place] [address] Care Team Providers Care Social Sciences Department Chair Name Role Phone Abhijeet Laughlin MD Primary Care Provider [phone] Encounter Details Date Type Department Care Team (Latest Contact Info) Description 12/31/2010 8:55 AM EDT - 12/31/2010 11:59 PM EDT Hospital [place] [id number] CLINIC, Anup Garcia MD [facility] [place] [address] Discharge Disposition: Home Social History Tobacco Use [...] 04/08/2010 02/15/2012 documented as of this encounter Miscellaneous Notes * Miscellaneous - Provider, Scanning - 01/09/2011 10:29 AM EDT documented in this encounter Plan of Treatment Not on file documented as of this encounter Procedures Procedure Name Priority Date/Time Associated Diagnosis Comments SURGICAL PATHOLOGY REPORT Routine 12/31/2010 10:56 AM EDT documented in this encounter Results * SURGICAL PATHOLOGY REPORT (12/31/2010 10:56 AM EDT) Surgical Pathology Report ? [facility] ? Provider: ?? ANUP OLVERA ??Pt. Name: ?? RIZWANA AMBROSERenetta Chacko ?C ? Acc #: ?[id number] ?Pt. ? Col Date: ?? 12/31/2010 ? /Sex: ?1960,(50 years),Male ? Rec Date: ?? 12/31/2010 ? LOC: ?3S ? SURGICAL PATHOLOGY ? ---Pathologic Diagnosis--- ? Kidney, needle biopsy: ?1. 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 ?2. 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 ? CR-0 ? 01/02/11 ? VMS ? 01/13/11 Verified by: ? Susan JONES, Enrique Mora ? Pathologist ? (Electronic Signature) ? The attending pathologist whose signature appears on this report has ? reviewed all diagnostic slides and has edited the gross and/or ? microscopic portion of the report in rendering the final pathologic ? diagnosis. ? ---Microscopic Description--- ? LIGHT MICROSCOPY ?The biopsy consists of a small portion of renal cortex and a long tail ? of fibrous capsular tissue and extrarenal adipose tissue. ??Two glomeruli ? are present. ??They are normal in size and cellularity. ??Neither is globally ? sclerotic. ??The PAS and methenamine silver stains show modest expansion of ? the mesangial matrix, associated segmentally with slight hypercellularity. ? Capillary lumens are patent, and the basement membranes are delicate. ??No ? crescents are identified. ??The trichrome stain shows mild fibrosis. ??There ? is a slight suggestion of tangential streak-like fibrosis extending from ? the capsule and parallel to a second linear zone of fibrosis deeper in the ? cortex. ??No interstitial inflammation is present. ??The tubules are back to ? back, without dilatation, vacuolization, viral cytopathic changes, or ? tubulitis. ??Several interlobular arteries show striking bead-like, nodular ? or elongated zones of medial hyalinization. ??A glomerular hilar arteriole ? shows similar changes. ??No endothelialitis is identified. ??The Congo red ? stain is negative. ? IMMUNOFLUORESCENCE ?Direct immunofluorescence is performed using appropriate internal ? positive controls. ??Intensity of staining is measured seminquantitatively ? on a scale of 0 to 4+. ?Evaluable glomeruli: ??Seven. ? [facility] ? Provider: ?? ANUP OLVERA ??Pt. Name: ?? ARNOL, CHRISTY Ginna ?C ? Acc #: ?[id number] ?Pt. ? Col Date: ?? 12/31/2010 ? /Sex: ?1960,(50 years),Male ? Rec Date: ?? 12/31/2010 ? LOC: ?3S ?IgG: ??3+ coarsely granular mesangial staining; 4+ casts. ? SURGICAL PATHOLOGY ?C3: ?? 2 to 3+ punctate mesangial staining. ?C1q: ??Negative. ?IgA: ??3 to 4+ coarsely granular mesangial staining; 4+ casts. ?IgM: ??1+ granular mesangial staining. ?Fibrinogen: ??Negative. ?Albumin: ??Negative glomerular staining; 2+ granular staining ?of tubular epithelial cells. ?Iatan: ?1 to 2+ granular mesangial staining. ?Lambda: ?? 2+ granular mesangial staining. ? ELECTRON MICROSCOPY ?Glomeruli evaluated: ??6 ?Paramesangial electron dense deposits are numerous and extensive. ??Many ? are piled up and confluent, and others are spread prominently into the ? mesangium. ??A few, widely scattered transmembrane deposits are present ? peripherally, and a few capillaries show small numbers of discrete ? subendothelial deposits. ??Epithelial cells are focally swollen, with focal ? microvillous transformation and interrupted foot process effacement. ? ---Gross Description--- ? A - Labeled/Fixative: Labeled with the patient's name, formalin. ? Qty/Size/Weight: ?Single pale charles-white to pink-smith tissue needle core ? biopsy, 0.9 x 0.1 cm. ? Sections/Processing: ??(T1) ? B - Labeled/Fixative: Labeled with the patient's name, saline. ? Qty/Size/Weight: ?Single yellow-smith tissue needle core biopsy, ? 0.3 x 0.1 x 0.1 cm. ? Sections/Processing: ??Snap frozen for immunofluorescent studies. ? C - Labeled/Fixative: Labeled with the patient's name, glutaraldehyde. ? Qty/Size/Weight: ?Single yellow-smith needle core biopsy, 0.3 x 0.1 cm. ? Sections/Processing: ??Submitted for electron microscopy. ??aje/EJR ? ---Clinical Information--- ? Specimen Submitted: ? A - Transplant - kidney, formalin ? B - Transplant - kidney, saline ? C - Transplant - kidney, glutaraldehyde ? RLQ ? [facility] ? Provider: ?? ANUP OLVERA ??Pt. Name: ?? CHRISTY AMBROSE ?C ? Acc #: ?[id number] ?Pt. ? Col Date: ?? 12/31/2010 ? /Sex: ?1960,(50 years),Male ? Rec Date: ?? 12/31/2010 ? LOC: ?3S ? Clinical History/Diagnosis: ? SURGICAL PATHOLOGY ? 50 yo male S/P DD kidney TX in 2002 second to IgA nephropathy increased ? creatinine now ? 1 FK toxicity ? 2 Chronic transplant glomerulonephropathy ? 3 Recurrent IgA ? 4 Acute TIN CERNER MILLENNIUM 12/31/2010 10:5 6 AM EDT Anup Olvera MD PATHOLOGY/CYTOLOG Y ORDERABLES BUSHRA DOYLE documented in this encounter Visit Diagnoses Not on filedocumented in this encounter Care Teams Social Sciences Department Chair Relationship Specialty Start Date End Date Abhijeet Laughlin MD [address] [place] [address] PCP - General 06/03/10 07/20/11 documented as of this encounter
--- OUTSIDE RECORDS SUMMARY | 2024-04-22 11:18 | XMS_ITS | Encounter Summary ---
Author Organization [facility] Address [address] [place] [id number] Care Team Providers Care Food Service Utility Worker Name Role Phone Carroll Fuentes DO Primary Care Provider [phone] Encounter Details Date Type Department Care Team (Latest Contact Info) Description 06/20/2014 17:04 EST - 06/20/2014 23:59 EST Hospital Encounter [address] [address] Unknown, Provider, Discharge Disposition: Home or Self Care Social History Tobacco Use Types Packs/Day Years Used Date Smoking Tobacco: Never Assessed Sex and Gender Information Value Date Recorded Sex Assigned at Not on file Gender Identity Not on file Sexual Orientation Not on file documented as of this encounter Discharge Disposition Disposition Code Departure Means Destination Home or Self Prison documented in this encounter Plan of Treatment Not on file documented as of this encounter Visit Diagnoses Not on filedocumented in this encounter Care Teams Food Service Utility Worker Relationship Specialty Start Date End Date Carroll Fuentes DO [address] [place] [id number] PCP - General 03/17/12 documented as of this encounter
--- OUTSIDE RECORDS SUMMARY | 2024-04-22 11:18 | XMS_ITS | Encounter Summary ---
Author Organization [facility] [place] [address] Care Team Providers Care Auto Damage Adjuster Name Role Phone Abhijeet Laughlin MD Primary Care Provider [phone] Reason for Visit * Reason Onset Date Comments Advice Only 12/04/2010 Ptnt's mom calls with questions concerning Adama's upcoming kidney biopsy. Encounter Details Date Type Department Care Team (Late st Contact Info) Description 12/04/2010 Telephone Solid [place] [address] Naz Anthony [facility] [place] [address] Advice Only (Ptnt's mom calls with questions concerning Adama's upcoming kidney biopsy.) Social History Tobacco Use Types Packs/Day Years [...] encounter Miscellaneous Notes * Telephone Encounter - Naz Anthony APRN - 12/04/2010 2:55 PM EDT Ilda phoned the transplant office, today, in follow-up to son's transplant clinic visit yesterday. Specifically, she was quite concerned to hear that Adama was being scheduled for a txp kidney biopsy in the near future. I explained to Ilda that Adama's primary kidney disease and initial cause for his ESRD is IgA nephropathy. This can reoccur in the transplanted kidney. While Adama's txp kidney function is currently stable, increased proteinuria and hematuria was noted on yesterday's U/A. This suggests that the txp kidney is under some stress and that the IgA disease may have reoccurred in the txp graft. I discussed with Ilda that the reason for the kidney biopsy is to definitively determine, on a cellular basis,what is occurring in the txp kidney. This information will then help Dr. Hawkins and me decide what, if any, further treatment will be needed to prolong Adama's txp graft function. Ilda voiced an understanding of the above information and thanked me for the call as it helped to relieve the anxiety she had been feeling upon hearing the news that the biopsy was being scheduled. Also, Ilda mentioned that she will be moving to an assisted living facility and Adama will be movingto an apartment of his own. She did not have Adama's new address with her at the time of the call. Iasked her to Adama contact Erika Sweeney, transplant department supervisor, with the new address. Erika is aware of this and knows to expect Adama's call. Yesterday, I submitted a referral for Adama's kidney biopsy to [facility] and have notified Krysta Perea that this needs to be scheduled. Adama is aware that Laurie will be contacting him with the appointment date and time in the very near future. documented in this encounter Plan of Treatment Not on file documented as of this encounter Visit Diagnoses Not on filedocumented in this encounter Care Teams Auto Damage Adjuster Relationship Specialty Start Date End Date Abhijeet Laughlin MD [address] [place] [address] PCP - General 06/03/10 07/20/11 documented as of this encounter
--- OUTSIDE RECORDS SUMMARY | 2024-04-22 11:18 | XMS_ITS | Encounter Summary ---
Author Organization [facility] Address [address] [place] [address] Care Team Providers Care Database Manager Name Role Phone Carroll Fuentes Primary Care Provider [phone] Encounter Details Date Type Department Care Team (Late st Contact Info) Description 08/24/2022 Lab Requisition [facility] Pathology & Laboratory Medicine - [address] [address] Rachelle Grey, DO [address] [place], [place] [id number] Encounter for other general examination Social History Tobacco Use Types Packs/Day Years Used Date Smoking Tobacco: Never Assessed Sex and Gender Information Value Date Recorded Sex Assigned at Not on file Gender Identity Not on file Sexual Orientation Not on file documented as of this encounter Plan of Treatment Not on file documented as of this encounter Procedures Procedure Name Priority Date/Time Associated Diagnosis Comments SURGICAL PATHOLOGY Today 08/24/2022 11 :35 EST Encounter for other general examination documented in this encounter Results * SURGICAL PATHOLOGY (08/24/2022 11:35 EST) Note to Patient The following pathology results have been interpreted by your pathologist and may be available to you before your health provider has had the opportunity to review them. Please allow time for your provider to receive these results and explore management options, if applicable. 08/26/2022 11:06 EST [facility] Final Diagnosis A. SKIN OF BACK, EXCISION: - Hypertrophic actinic keratosis, completely excised. 08/26/2022 11:06 EST [facility] Attestation By the signature below, the attending physician certifies that they have 1) personally conducted a gross and/or microscopic examination of the described specimen(s), and/or personally interpreted the results of laboratory testing of the described specimen(s), and 2) personally rendered or confirmed the above diagnosis. 08/26/2022 11:06 [facility] at 1106 Clinical History Skin lesion 08/26/2022 11:06 [facility] Gross Description A. Received in formalin labelled with proper patient identification (initials F, D) and back is an unoriented elliptical excision of smith skin (1.7 x 1.0 cm, excised to a depth of 0.5 cm). There is a smith-white variegated verrucoid to keratotic friable nodule (1.0 x 0.9 x 0.5 cm) located on the skin surface. The margins are inked blue. The specimen is serially sectioned and entirely submitted as A1 tips, reverse en face and A2-A4 central sections. PANCHITO MURRAY(ASCP) 08/25/2022 10:52 08/26/2022 11:06 [facility] Performing Lab [facility] 08/26/2022 11:06 [facility] Scanned Images 08/26/2022 11:06 [facility] Tissue TISSUE SPECIMEN FROM SKIN / Unknown 08/24/2022 11:35 EST 08/24/2022 17:54 EST Rachelle Grey DO PATHOLOGY ORDERABLES [facility] [address] [place] [address] documented in this encounter Visit Diagnoses Diagnosis Encounter for other general examination documented in this encounter Care Teams Database Manager Relationship Specialty Start Date End Date Carroll Fuentes DO [address] [place] [address] PCP - General 03/17/12 documented as of this encounter
--- OUTSIDE RECORDS SUMMARY | 2024-04-22 11:18 | XMS_ITS | Encounter Summary ---
Author Organization [facility] Address [facility] [place] [address] Care Team Providers Care Solution Advisor Name Role Phone Abhijeet Laughlin MD Primary Care Provider [phone] Encounter Details Date Type Department Care Team (Latest Contact Info) Description 12/03/2010 1:27 PM EDT - 12/03/2010 11:59 PM EDT Hospital [place] [address] Anup Hawkins MD [facility] [address] Transplant of kidney; Transplant kidney; Poisoning by antineoplastic and immunosuppressive [...] Sig Dispensed Refills Start Date End Date metoprolol tartrate (LOPRESSOR) 50 mg tablet Take [...] Diagnosis Comments BK QUANT URINE RESULT STAT 12/03/2010 2:25 PM EDT URINALYSIS WITH REFLEX CULTURE Routine 12/03/2010 2:25 PM EDT Transplant kidney Poisoning by antineoplastic and immunosuppressive drugs DIFFERENTIAL, AUTOMATED STAT 12/03/2010 2:16 PM EDT VITAMIN D, 25-HYDROXY STAT 12/03/2010 2:16 PM EDT Transplant of kidney RETICULOCYTE COUNT STAT 12/03/2010 2: 16 PM EDT Transplant of kidney CBC (WITH DIFF) STAT 12/03/2010 2:16 PM EDT Transplant of kidney BK QUANT BLOOD RESULT STAT 12/03/2010 2:15 PM EDT PTH STAT 12/03/2010 2:15 PM EDT Transplant of kidney TACROLIMUS LEVEL STAT 12/03/2010 2:15 PM EDT Transplant of kidney 1,25-DIHYDROXYCHOLEC ALCIFEROL Routine 12/03/2010 2:15 PM EDT APTT STAT 12/03/2010 2:15 PM EDT Transplant of kidney PROTHROMBIN TIME STAT 12/03/2010 2:15 PM EDT Transplant of kidney URIC ACID STAT 12/03/2010 2:15 PM EDT Transplant of kidney TSH STAT 12/03/2010 2:15 PM EDT Transplant kidney Poisoning by antineoplastic and immunosuppressive drugs PHOSPHORUS STAT 12/03/2010 2:15 PM EDT Transplant of kidney MAGNESIUM STAT 12/03/2010 2:15 PM EDT Transplant of kidney LIPID PANEL (REFLEX DIRECT LDL) STAT 12/03/2010 2:15 PM EDT Transplant of kidney COMPREHENSIVE METABOLIC PANEL STAT 12/03/2010 2:15 PM EDT Transplant of kidney U24 HRS AND VOLUME Routine 12/03/2010 7: 00 AM EDT URIC ACID, URINE, 24 HOUR Routine 12/03/2010 7:00 AM EDT Transplant of kidney CALCIUM, URINE, 24 HOUR Routine 12/03/2010 7:00 AM EDT Transplant of kidney CREATININE, URINE, 24 HOUR Routine 12/03/2010 7:00 AM EDT Transplant of kidney PROTEIN, URINE, 24 HOUR Routine 12/03/2010 7:00 AM EDT Transplant of kidney PHOSPHORUS, URINE, 24 HOUR Routine 12/03/2010 7:00 AM EDT Transplant of kidney CREATININE CLEARANCE, URINE, 24 HOUR Routine 12/03/2010 7:00 AM EDT documented in this encounter Results * REFLEX LAB-BK QUANT URINE RESULT (12/03/2010 2:25 PM EDT) Pathologist [facility] BKV Urine Result Not Detected [facility] BKV Urine Interp BK Virus Urine Result Interpretation Result: BK Virus Not Detected log concentration: Not detected Assay Range: urine: 3.1-9.2 log copies/mL (1.2x10^3 - 1.5x10^9 copies/mL ) Results are reported as log copies/mL. ??Changes of less than 1.0 log between serial samples may not be clinically significant. Methods: Quantitative Real time polymerase chain reaction (PCR) of viral DNA isolated from urine was performed using the [employer] BK Virus MGB Alert primers(2) and probes (1) and analyzed on the [employer] Smartcycler. In addition, the PCR product sequence is confirmed using physical properties (melting curve analysis). This test was developed and its performance determined by the [facility]. It has not been cleared or approved by the U.S. Food and Drug Administration. This test is used for clinical purposes and should not be considered investigational or for research purposes. The Molecular Pathology Laboratory is certified by the Clinical Laboratory Improvement Act of 1988 and as such is allowed to perform high complexity clinical testing. CERNER MILLENNIUM Comment: [VERIFIED DATE]12.04.10 Verified By:Keli Cohen (Electronic Signature) Urine specimen (specimen) 12/03/2010 2:25 PM EDT 12/04/2010 9:10 AM EDT Anup Hawkins MD HEMATOLOGY ORDERA MARISOL [facility] Nfocus [facility] * (ABNORMAL) Urinalysis with microscopic (12/03/2010 2:25 [...] Urine Dipstick Clear Clear CERNER MILLENNIUM Specific Uriah Urine Automated 1.010 1.002 - 1.030 CERNER MILLENNIUM Color, Urine Dipstick Yellow Yellow CERNER MILLENNIUM RBC, Urine 4(H) 0 - 3 /HPF CERNER MILLENNIUM WBC, Urine <1 0 - 3 /HPF CERNER MILLENNIUM Bacteria, Urine Rare(A) None /HPF CERNER MILLENNIUM Urine specimen (specimen) 12/03/2010 2:25 PM EDT 12/03/2010 2:32 PM EDT Anup Hawkins MD URINE ORDERABLES CERNER MILLENNIUM * REFLEX LAB-A-DIFF (12/03/2010 2:16 PM EDT) Neutrophil % 63.2 34.0 - 71.0 % CERNER MILLENNIUM Neutrophil Absolute 3.33 1.50 - 6.30 x10(3)/mcL CERNER MILLENNIUM Lymph % 24.0 19.0 - 53.0 % CERNER MILLENNIUM Lymphocytes Abs 1.3 1.0 - 3.6 x10(3)/mcL CERNER MILLENNIUM Monocyte % 9.5 4.0 - 13.0 % CERNER MILLENNIUM Monocyte Abs 0.5 0.2 - 1.0 x10(3)/mcL CERNER MILLENNIUM Eos % 2.3 0.0 - 7.0 % CERNER MILLENNIUM Eosinophils Abs 0.1 0.0 - 0.5 x10(3)/mcL CERNER MILLENNIUM Basophil % 0.8 0.0 - 2.0 % CERNER MILLENNIUM Baso [...] 0.05 x10(3)/mcL CERNER MILLENNIUM Blood specimen (specimen) 12/03/2010 2:16 PM EDT 12/03/2010 2:23 PM EDT Anup Hawkins MD HEMATOLOGY ORDERA BLES Performing Organization Address [facility] de Phone Number [facility] MILLS[facility] * Vitamin D2 and D3 25 Hydroxy (12/03/2010 2:16 PM EDT) 25-Hydroxy D2 6.9 ng/mL CERNER MILLENNIUM Comment: Test Performed by: [facility] [place] [address] Publications Manager: Christal Ramírez, Ph.D. 25-Hydroxy D3 23 ng/mL [facility] MILLENNIUM Comment: Test Performed by: [facility] [place] [address] Publications Manager: Christal Ramírez, Ph.D. Vitamin D Total 25 OH 30 ng/mL [facility] Comment: -- REFERENCE VALUE -- 25-HYDROXY D TOTAL (D2+D3) Optimum levels in the normal population are 25-80 Test Performed by: [facility] [place] [address] Publications Manager: Christal Ramírez, Ph.D. Blood specimen (specimen) 12/03/2010 2:16 PM EDT 12/03/2010 3:14 PM EDT Anup Hawkins MD CHEMISTRY ORDERAB LES Performing Organization Address [facility]/ZIP Co de Phone Number [facility] BRADLEYENNIUM * Reticulocyte Count (12/03/2010 2:16 PM EDT) [...] MD HEMATOLOGY ORDERA BLES CERNER BRADLEYENNIUM * CBC (with Diff) (12/03/2010 2:16 PM EDT) Pathologist [facility] White Blood Cell 5.3 4.0 - 10.0 [...] MD HEMATOLOGY ORDERA BLES CERSHANNAN HUERTAENNIUM * VITAMIN D 1,25 DIHYDROXY (12/03/2010 2:15 PM EDT) Vit D 1,25 Dihydroxy (NOVEMBER) 18 18 - 64 pg/mL CERNER MILLENNIUM Comment: Test Performed by: [facility] Med [facility] Pathology [address] [place] [id number] Publications Manager: Herber Tomas III, M.D. Blood specimen (specimen) 12/03/2010 2:15 PM EDT 12/03/2010 4:16 PM EDT Anup Hawkins MD LAB SEND OUT RYAN CALERO Performing Organization Address [facility]/ZIP Co de Phone Number [facility] * REFLEX LAB-BK QUANT BLOOD RESULT (12/03/2010 2:15 PM EDT) [facility] BKV Blood Result Not Detected [facility] BKV Blood Interp BK Virus Blood Result Interpretation Result: BK Virus not detected log concentration (copies/mL): ??Not detected Assay Range: ??plasma: 3.5-9.6 log copies/mL (3x10^3 - 3.7x10^9 copies/mL) Results are reported as log copies/mL. ??Changes of less than 1.0 log between serial samples may not be clinically significant. Methods: Quantitative Real time polymerase chain reaction (PCR) of viral DNA isolated from plasma was performed using the [employer] BK Virus MGB Alert primers(2) and probes (1) and analyzed on the [employer] Smart[employer]er. In addition, the ??PCR product sequence is confirmed using physical properties (melting curve analysis). This test was developed and its performance determined by the [facility]. It has not been cleared or approved by the U.S. Food and Drug Administration. This test is used for clinical purposes and should not be considered investigational or for research purposes. The Molecular Pathology Laboratory is certified by the Clinical Laboratory Improvement Act of 1988 and as such is allowed to perform high complexity clinical testing. [facility] Comment: [VERIFIED DATE]12.04.10 Verified By:Keli Cohen (Electronic Signature) Blood specimen (specimen) 12/03/2010 2:15 PM EDT 12/04/2010 9:09 AM EDT Anup Hawkins MD HEMATOLOGY ORDERA BLES Performing Organization Address [facility]/ZIP Co de Phone Number [facility] * Uric acid (12/03/2010 2:15 PM EDT) Uric Acid 6.0 3.5 - 8.5 mg/dL CERNER MILLENNIUM Blood specimen (specimen) 12/03/2010 2:15 PM EDT 12/03/2010 2:23 PM EDT Anup Hawkins MD CHEMISTRY ORDERAB LES Performing Organization Address [facility] Co de Phone Number CERNER MILLENNIUM * Phosphorus (12/03/2010 2:15 PM EDT) Phosphorus 3.5 2.5 - 4.5 mg/dL CERNER MILLENNIUM Blood specimen (specimen) 12/03/2010 2:15 PM EDT 12/03/2010 2:23 PM EDT Anup Hawkins MD CHEMISTRY ORDERAB LES Performing Organization Address [facility] Co de Phone Number [facility] MILLENNIUM * Magnesium (12/03/2010 2:15 PM EDT) Magnesium 0.75 0.69 - 1.07 mmol/L CERNER MILLENNIUM Blood specimen (specimen) 12/03/2010 2:15 PM EDT 12/03/2010 2:23 PM EDT Anup Hawkins MD CHEMISTRY ORDERAB LES Performing Organization Address [facility] Co de Phone Number [facility] MILLENNIUM * (ABNORMAL) Comprehensive metabolic panel (non-fasting) (12/03/2010 [...] Organization Address [facility] Co de Phone Number [facility] Nfocus NeuromedicalSAN CARL[facility]PORATIONIUM * (ABNORMAL) TSH (12/03/2010 2:15 PM EDT) Thyroid Stimulating Hormone 5.71(H) 0.27 - 4.20 mcIU/mL [facility] Nfocus NeuromedicalSAN CARL[facility]IUM Blood specimen (specimen) 12/03/2010 2:15 PM EDT 12/03/2010 2:23 PM EDT Anup Hawkins MD CHEMISTRY ORDERAB LES Performing Organization Address [facility] de Phone Number [facility] Nfocus NeuromedicalS[facility] * Reflex Lab-PTH (12/03/2010 2:15 PM EDT) Parathyroid Hormone 39 15 - 65 pg/mL [facility] Nfocus NeuromedicalS[facility] Blood specimen (specimen) 12/03/2010 2:15 PM EDT 12/03/2010 2:23 PM EDT Anup Hawkins MD CHEMISTRY ORDERAB LES Performing Organization Address [facility] Co de Phone Number [facility] Nfocus NeuromedicalSAN [facility] * (ABNORMAL) Lipid panel (fasting) (12/03/2010 2:15 PM EDT) Cholesterol, Total 207(H) <=199 mg/dL [facility] Comment: Recommendations of the NCEP Adult Treatment Panel for the following risk cutoff thresholds for the [place] population: Desirable: <200 mg/dL Borderline High: 200-239 mg/dL High: > or = 240 mg/dL Triglyceride 90 <=149 mg/dL [facility] Comment: Reference Range: Normal triglycerides: ??<150 mg/dL Borderline high: ??150-199 mg/dL High: ??200-499 mg/dL Very high: ??>nh=673 mg/dL RAYMOND 2001; 285(19):9405-9872 HDL Cholesterol 43 >=40 mg/dL [facility] Comment: Reference range: ??Low HDL: ?? < 40 mg/dL ??Normal: ?40-60 mg/dL ??Desirable: > 60 mg/dL RAYMOND 2001; 285(19):6830-7984 LDL Cholesterol 146(H) <=99 mg/dL [facility] SHANNAN [facility] Comment: Reference range: ?? Optimal: ?<100 mg/dL ?? Near Optimal/Above Optimal: ?? 100-129 mg/dL ?? Borderline high: ?130-159 mg/dL ?? High: ? 160-189 mg/dL ?? Very high: ?>ke=506 mg/dL RAYMOND 2001: 285(19):9686-1197 Cholesterol/HDL Ratio 4.8 ratio [facility] Comment: A Cholesterol to HDL ratio below 4:1 is desirable. ??Studies suggest that increased CAD risk occurs at ratios above 5 for females and above 6 for men. ? [place] Heart Association ??(http://www.americanheart.org) ? Marizol Int Med, 1994; 121:641 ? AM J Med, 1998; 105(1A):48S Blood specimen (specimen) 12/03/2010 2:15 PM EDT 12/03/2010 2:23 PM EDT Anup Hawkins MD CHEMISTRY ORDERAB LES BUSHRA DOYLE * (ABNORMAL) Prothrombin Time (12/03/2010 2:15 PM EDT) Prothrombin Time 21.6(H) 12.3 - 14.7 sec BUSHRA HUERTAENNIUM Comment: [facility] Transfusion Committee Guidelines: INR less than 2.0, PTT less than OR equal to 43.5 seconds, or Fibrinogen greater than or equal to 100 mg/dl indicate adequate procoagulant activity for hemostasis in patients without underlying bleeding disorders. International Normalization Ratio 1.8(H) 0.9 - 1.1 CERNER MILLENNIUM Blood specimen (specimen) 12/03/2010 2:15 PM EDT 12/03/2010 2:23 PM EDT Anup Hawkins MD HEMATOLOGY ORDERA BLES Performing Organization Address [facility] de Phone Number [facility] * APTT (12/03/2010 2:15 PM EDT) Partial Thromboplastin Time 32 25 - 37 sec CERNER MILLENNIUM Comment: Recommended therapeutic PTT range for full dose unfractionated heparin is 80-114 seconds. Blood specimen (specimen) 12/03/2010 2:15 PM EDT 12/03/2010 2:23 PM EDT Anup Hawkins MD HEMATOLOGY ORDERA BLES Performing Organization Address [facility] Phone Number [facility] * Tacrolimus level (12/03/2010 2:15 PM EDT) Tacrolimus 7.7 ng/mL [facility] [employer]IUM Comment:Trough therapeutic: 5-15 ng/mL Blood specimen (specimen) 12/03/2010 2:15 PM EDT 12/04/2010 8:13 AM EDT Anup Hawkins MD CHEMISTRY ORDERAB LES Performing Organization Address [facility] Phone Number [employer] * (ABNORMAL) CREATININE CLEARANCE, URINE , 24 HOUR (12/03/2010 7:00 AM EDT) Creatinine Clearance, 24 Hour Urine 35(L) 90 - 139 mL/min [facility] Nfocus NeuromedicalENNIUM Cre Concentration, U24 17 mg/dL CERNER Nfocus NeuromedicalENNIUM Creatinine, 24 Hour Urine 0.97 0.80 - 1.90 gm/24hr CERNER MILLENNIUM Urine specimen (specimen) 12/03/2010 7:00 AM EDT 12/03/2010 2:57 PM EDT Anup Hawkins MD URINE ORDERABLES Performing Organization Address [facility] de Phone Number CERNER MILLENNIUM * REFLEX LAB-U24 HRS AND VOLUME (12/03/2010 7:00 AM EDT) Hours Collected 24 hour(s) CERNER MILLENNIUM Total Volume 5700 mL CERNER MILLENNIUM Urine specimen (specimen) 12/03/2010 7:00 AM EDT 12/03/2010 2:57 PM EDT Anup Hawkins MD CHEMISTRY ORDERAB LES Performing Organization Address [facility] Phone Number CERNER MILLENNIUM * Phosphorus, urine, 24 hour (12/03/2010 7:00 AM EDT) Phosphorus Concentration, U24 10.4 mg/dL CERNER MILLENNIUM Phosphorus, 24 Hour Urine 0.6 0.4 - 1.3 gm/24hr CERNER MILLENNIUM Urine specimen (specimen) 12/03/2010 7:00 AM EDT 12/03/2010 2:57 PM EDT Narrative Authorizing Provider Result Angie Hawkins MD URINE ORDERABLES Performing Organization Address [facility] de Phone Number CERNER MILLENNIUM * (ABNORMAL) Protein, urine, 24 hour (12/03/2010 7:00 AM EDT) Protein Concentration, U24 50 <=80 mg/dL CERNER MILLENNIUM Protein, 24 Hour Urine 2.85(H) <=0.15 gm/24hr CERNER MILLENNIUM Urine specimen (specimen) 12/03/2010 7:00 AM EDT 12/03/2010 2:57 PM EDT Anup Hawkins MD URINE ORDERABLES Performing Organization Address [facility] de Phone Number [facility] BRADLEYENNIUM * (ABNORMAL) Uric acid, urine, 24 hour (12/03/2010 7:00 AM EDT) U24 Uric Conc 3.3 mg/dL [facility] MILLENNIUM Uric Acid, 24 Hour Urine 0.19(L) 0.25 - 0.80 gm/24hr CERNER MILLENNIUM Urine specimen (specimen) 12/03/2010 7:00 AM EDT 12/03/2010 2:57 PM EDT Anup Hawkins MD URINE ORDERABLES Performing Organization Address [facility] de Phone Number CERSHANNAN HUERTAENNIUM * Creatinine, urine, 24 hour (12/03/2010 7:00 AM EDT) Cre Concentration, U24 17 mg/dL [facility] MILLENNIUM Creatinine, 24 Hour Urine 0.97 0.80 - 1.90 gm/24hr CERNER MILLENNIUM Urine specimen (specimen) 12/03/2010 7:00 AM EDT 12/03/2010 2:57 PM EDT Anup Hawkins MD URINE ORDERABLES Performing Organization Address [facility] de Phone Number CERSHANNAN HUERTAENNIUM * (ABNORMAL) Calcium, urine, 24 hour (12/03/2010 7:00 AM EDT) Ca Concentration, U24 0.4 mg/dL [facility] MILLENNIUM Calcium, 24 Hour Urine 22.8(L) 50.0 - 300.0 mg/24hr CERNER MILLENNIUM Comment:Reference Range: 50. 0-300.0 mg/24 hour based on diet. Urine specimen (specimen) 12/03/2010 7:00 AM EDT 12/03/2010 2:57 PM EDT Anup Hawkins MD URINE ORDERABLES Performing Organization Address [facility] Co de Phone Number CERNER MILLENNIUM documented in this encounter Visit Diagnoses Diagnosis Transplant of kidney Kidney replaced by transplant Transplant kidney Kidney replaced by transplant Poisoning by antineoplastic and immunosuppressive drugs(963.1) Poisoning by antineoplastic and immunosuppressive drugs documented in this encounter Care Teams Solution Advisor Relationship Specialty Start Date End Date Abhijeet Laughlin MD [address] [place] [address] PCP - General 06/03/10 07/20/11 documented as of this encounter
--- OUTSIDE RECORDS SUMMARY | 2024-04-22 11:18 | XMS_ITS | Encounter Summary ---
Author Organization [facility] Address [address] [place] [id number] Care Team Providers Care Integrated Specialist Name Role Phone Carroll Fuentes DO Primary Care Provider [phone] Encounter Details Date Type Department Care Team (Latest Contact Info) Description 01/23/2016 9:46 EDT - 01/23/2016 23:59 EDT Hospital Encounter [address] [address] Unknown, Provider, Discharge Disposition: Home or Self Care Social History Tobacco Use Types Packs/Day Years Used Date Smoking Tobacco: Never Assessed Sex and Gender Information Value Date Recorded Sex Assigned at Not on file Gender Identity Not on file Sexual Orientation Not on file documented as of this encounter Discharge Disposition Disposition Code Departure Means Destination Home or Self Long-Term documented in this encounter Plan of Treatment Not on file documented as of this encounter Visit Diagnoses Not on filedocumented in this encounter Care Teams Integrated Specialist Relationship Specialty Start Date End Date Carroll Fuentes DO [address] [place] [address] [place] [address] PCP - General 03/17/12 documented as of this encounter
--- OUTSIDE RECORDS SUMMARY | 2024-04-22 11:18 | XMS_ITS | Encounter Summary ---
Author Organization [facility] Address [address] [place] [address] Care Team Providers Care Body Line Finisher Name Role Phone Carroll Fuentes DO Primary Care Provider [phone] Encounter Details Date Type Department Care Team (Late st Contact Info) Description 11/14/2021 Lab Requisition [facility] Pathology & Laboratory Medicine - [address] [address] Outr Resulting Lab, Provider Social History Tobacco [...] Priority Date/Time Associated Diagnosis Comments ZZCOVID-19 TEST [facility] PCR Today 11/14/2021 11:40 EDT COVID-19 TESTING Routine 11/14/2021 11:4 0 EDT documented in this encounter Results * [facility] (11/14/2021 11:40 EDT) Swab 11/14/2021 11:4 0 EDT 11/14/2021 21:58 EDT Provider Outr Resulting Lab MICROBIOLOGY - GENERAL ORDERABLES [facility] [address] [place] [address] * (ABNORMAL) COVID-19 TESTING (11/14/2021 11:40 EDT) COVID-19 rt-PCR Result Positive( AA) Negative 11/15/2021 13:10 EDT [facility] Comment: This test has not [...] the authorization is terminated or revoked sooner. Testing was performed using the aneudy SARS-CoV-2 assay ([employer] on the Aneudy 6800 System Performing Lab Aneudy 68[address] [facility] 11/15/2021 13:10 EDT [facility] Swab 11/14/2021 11:4 0 EDT 11/14/2021 21:58 EDT Provider Outr Resulting Lab MICROBIOLOGY - GENERAL ORDERABLES [facility] [address] [place] [address] documented in this encounter Visit Diagnoses Not on filedocumented in this encounter Additional Health Concerns Infection Onset Date Last Indicated Resolved Time COVID-19 11/14/2021 11/14/2021 12/04/2021 22:1 6 EDT documented as of this encounter Care Teams Body Line Finisher Relationship Specialty Start Date End Date Carroll Fuentes DO [address] [place] [address] [address] [place] [address] PCP - General 03/17/12 documented as of this encounter
--- OUTSIDE RECORDS SUMMARY | 2024-04-22 11:18 | XMS_ITS | Encounter Summary ---
Author Organization [facility] Address [address] [place] [address] Care Team Providers Care Shipyard Supervisor Name Role Phone Unknown, Provider Primary Care Provider Encounter Details Date Type Department Care Team (Late st Contact Info) Description 03/15/2012 Results Only [facility] ([facility]) [address] [place], [place] [id number] Carroll Fuentes F, DO [address] [place], [place] [id number] Social History Tobacco Use Types Packs/Day Years Used Date Smoking Tobacco: Never Assessed Sex and Gender Information Value Date Recorded Sex Assigned at Not on file Gender Identity Not on file Sexual Orientation Not on file documented as of this encounter Plan of Treatment Not on file documented as of this encounter Procedures Procedure Name Priority Date/Time Associated Diagnosis Comments SURGICAL PATHOLOGY Routine 03/15/2012 0:00 EDT documented in this encounter Results * SURGICAL PATHOLOGY (03/15/2012 0:00 EDT) Pathology Report: SURGICAL PATHOLOGY REPORT Reports generated via electronic interface contain original data; however they are lacking the format of the original report. Caution should be taken when reading/interpreti ng unformatted reports. Name: ? CHRISTY AMBROSE ? Accession #: ? [id number] ? : ? 1960 (Age: 51) ??M ? Collect Date: ? 03/15/2012 ? Location: ? [facility] ? Receive Date: ? 03/16/2012 ? Provider: CARROLL FUENTES DO Copy to: ? Final Pathologic Diagnosis: ? Skin of shoulder, right, punch biopsy: 1. ?Basal cell carcinoma, nodular type. ? - Basal cell carcinoma extends to peripheral edges of punch biopsy specimen. ?? Microscopic Description: ? Irregularly shaped islands of atypical basal cells infiltrate the dermis. The basal cells have scant cytoplasm and round dark nuclei. ??Mitotic figures and apoptotic bodies are evident. ??The nuclei at the periphery of the islands have a palisaded arrangement. ??The islands are associated with a fibromyxoid stroma and there is cleft formation between some of the islands and stroma. ??(Dr. Peters)/clare Document reviewed and electronically signed by: KALA PETERS MD Report ??Date: 03/17/2012 13:53 By the signature above, the attending physician certifies that he/she has personally conducted a gross and/or microscopic examination of the described specimens and rendered or confirmed the above diagnosis. Specimen(s) Received: ? 2.0 mm punch R shoulder Clinical History: ? 1 inch red lesion R shoulder; crusted; ? squamous cell Gross Description: ? Received in formalin labelled Leanna, Christy and Rt shoulder is an ovoid punch biopsy of white skin measuring 0.2 x 0.1 cm in diameter and 0.1 cm in thickness. ??The specimen is submitted intact in a single cassette. ??(Greyson Myles/clare End of Report JUDITH GODOY 03/15/2012 03/16/2012 9:2 0 EDT Carroll Fuentes DO PATHOLOGY ORDERABL ES [facility] [address] [place] [address] documented in this encounter Visit Diagnoses Not on filedocumented in this encounter Care Teams Shipyard Supervisor Relationship Specialty Start Date End Date Unknown, Provider, PCP - General 03/16/12 03/16/12 documented as of this encounter
--- OUTSIDE RECORDS SUMMARY | 2024-04-22 11:18 | XMS_ITS | Encounter Summary ---
Author Organization [facility] Address [address] [place] [address] Care Team Providers Care Community Representative Name Role Phone Carroll Fuentes DO Primary Care Provider [phone] Encounter Details Date Type Department Care Team (Late st Contact Info) Description 06/20/2014 Results Only [facility] [phone] Wes Garibay MD [facility] [place], [place] [id number] Social History Tobacco Use Types Packs/Day Years Used Date Smoking Tobacco: Never Assessed Sex and Gender Information Value Date Recorded Sex Assigned at Not on file Gender Identity Not on file Sexual Orientation Not on file documented as of this encounter Plan of Treatment Not on file documented as of this encounter Procedures Procedure Name Priority Date/Time Associated Diagnosis Comments SURGICAL PATHOLOGY Routine 06/20/2014 20 :06 EST documented in this encounter Results * SURGICAL PATHOLOGY (06/20/2014 20:06 EST) Pathology Report: SURGICAL PATHOLOGY REPORT Reports generated via electronic interface contain original data; however they are lacking the format of the original report. Caution should be taken when reading/interpreti ng unformatted reports. Name: ? CHRISTY AMBROSE ? Accession #: ? [id number] ? : ? 1960 (Age: 53) ??M ? Collect Date: ? 06/20/2014 ? Location: ? [facility] ? Receive Date: ? 06/20/2014 ? Provider: WES GARIBAY MD Copy to: CARROLL FAUSTINDERICK DO ? Final Pathologic Diagnosis: HERNIA SAC, LEFT INGUINAL, HERNIORRHAPY: - Fibromembranous tissue with scant adipose tissue consistent with hernia sac. Gross only. Document reviewed and electronically signed by: KATALINA HUTSON MD Report ??Date: 06/22/2014 16:13 By the signature above, the attending physician certifies that he/she has personally conducted a gross and/or microscopic examination of the described specimens and rendered or confirmed the above diagnosis. Specimen(s) Received: Left inguinal hernia sac Clinical History: Left inguinal hernia Gross Description: ? Received in formalin labelled with proper patient identification (initials F, D) and left inguinal hernia sac is a circular piece of smith-brown and charles fibromembranous tissue (roughly 3.5 cm in diameter x 2.0 cm in length) along with a separate fragment of fibromembranous tissue (6.5 x 1.0 x 0.1 cm). ??The inner aspect of the circular piece of fibromembranous tissue is focally trabecular, but otherwise generally smooth, smith-white and charles while the opposite side is rough. ??The circular piece of tissue has an average wall thickness of 0.1 cm. ??Both pieces of tissue have a scanty amount of adipose tissue. ??There are no discrete nodules. ??Gross only. Miguel Angel Palacio 06/21/2014 11:54 AM End of Report [facility] 06/20/2014 20:0 6 EST 06/20/2014 20:06 EST Wes Garibay MD PATHOLOGY ORDERA MARISOL [facility] [address] [place] [address] documented in this encounter Visit Diagnoses Not on filedocumented in this encounter Care Teams Community Representative Relationship Specialty Start Date End Date Carroll Fuentes DO [address] [place], [place] [address] [place] [address] PCP - General 03/17/12 documented as of this encounter
--- OUTSIDE RECORDS SUMMARY | 2024-04-22 11:18 | XMS_ITS | Encounter Summary ---
Author Organization [facility] Address [facility] [place] [address] Care Team Providers Care Composite Layup Worker Name Role Phone Abhijeet Laughlin MD Primary Care Provider [phone] Encounter Details Date Type Department Care Team (Latest Contact Info) Description 06/23/2010 6:32 PM EST - 06/23/2010 11:59 PM [facility] [place] [address] Anup Hawkins MD [facility] [address] [place] [address] Discharge Disposition: Home Social History Tobacco Use [...] on filedocumented in this encounter Care Teams Composite Layup Worker Relationship Specialty Start Date End Date Abhijeet Laughlin MD [address] [place] [address] PCP - General 06/03/10 07/20/11 documented as of this encounter
--- OUTSIDE RECORDS SUMMARY | 2024-04-22 11:18 | XMS_ITS | Encounter Summary ---
Author Organization [facility] Address [facility] [place] [address] Care Team Providers Care Glove Turner Name Role Phone Abhijeet Laughlin MD Primary Care Provider [phone] Encounter Details Date Type Department Care Team (Late st Contact Info) Description 07/16/2010 [place] [address] Anup Hawkins MD [facility] [address] [place] [address] Social History Tobacco Use Types Packs/Day Years Used Date Smoking Tobacco: Never Assessed Sex and Gender Information Value Date Recorded Sex Assigned at Not on file Gender Identity Not on file Sexual Orientation Not on file documented as of this encounter Plan of Treatment Not on file documented as of this encounter Procedures Procedure Name Priority Date/Time Associated Diagnosis Comments TACROLIMUS LEVEL Routine 07/16/2010 8:30 AM EST documented in this encounter Results * TACROLIMUS LEVEL (07/16/2010 8:30 AM EST) Tacrolimus 4.3 ng/mL [facility] Comment:Trough therapeutic: 5-15 ng/mL Blood specimen (specimen) 07/16/2010 8:30 AM EST 07/17/2010 8:28 AM EST Anup Hawkins MD CHEMISTRY ORDERAB LES [facility] documented in this encounter Visit Diagnoses Not on filedocumented in this encounter Care Teams Glove Turner Relationship Specialty Start Date End Date Abhijeet Laughlin MD [address] [place] [address] PCP - General 06/03/10 07/20/11 documented as of this encounter
--- OUTSIDE RECORDS SUMMARY | 2024-04-22 11:18 | XMS_ITS | Data Portability ---
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 otherwise WNL) Extrem General: normal to inspection Psych Speech and Movement: speech and movement normal Mood: congruent mood Attitude: cooperative Thought Process: normal and loose association Thought Content: normal Insight: limited Judgment: limited Affect: normal affect Const General: cooperative, healthy appearing, comfortable, no acute distress and well groomed Nutritional Appearance: average body habitus Orientation: alert, awake and oriented to person Neck Neck: normal visual inspection Skin General: no rashes or lesions noted Neuro Cranial Nerves: CN's II- XI intact bilaterally Speech: speech normal Gait: shuffling (uses furniture for supports; stable; unassisted) Nursing Intake Intake Visit Reasons: Palliative Care Allergies Allergy/AdvReac Type Severity Reaction Status Date / Time hydrochlorothiazide Allergy Mild unknown Verified 11/16/23 10:49 benazepril Allergy Unknown unknown Verified 11/16/23 10:49 codeine Allergy Unknown unknown Verified 11/16/23 10:49 pollen extracts AdvReac Mild chronic Verified 11/16/23 10:49 rhinitis Home Medications Medication Instructions Recorded Confirmed Type acetaminophen 500 mg tablet (Mapap 1,000 mg (2 x 500 mg) PO Q6H PRN 09/01/18 01/11/24 Rx Extra Strength) PRN pain (scale score 1-3) #30 tabs multivitamin (Multiple Vitamins 1 tab PO DAILY #90 tabs 12/08/19 01/11/24 Rx tablet) calcium carbonate (Tums) 200 mg PO BID #180 tabs 12/13/19 01/11/24 Rx pantoprazole 20 mg tablet,delayed 20 mg PO DAILY #90 tabs 01/24/20 01/11/24 Rx release levothyroxine 100 mcg capsule 100 mcg PO DAILY #90 caps 02/28/20 01/11/24 Rx (Tirosint) aspirin 81 mg tablet,delayed 81 mg PO DAILY #90 tabs 03/21/20 01/11/24 Rx release benzonatate 100 mg capsule 100 mg PO BID-TID PRN 04/29/22 01/11/24 History guaifenesin 600 mg tablet, 600 mg PO Q12H PRN 08/24/22 01/11/24 History extended release 12 hr (Mucinex) sevelamer carbonate 800 mg tablet 800 mg PO TID 08/24/22 01/11/24 History tacrolimus 1 mg capsule, 1 mg PO DIRECTED 08/24/22 01/11/24 History immediate-release (Prograf) vitamin B complex-vitamin C-folic 1 tab PO DAILY 01/15/23 01/11/24 History acid 0.8 mg tablet (Tania-Madiha) allopurinol 100 mg tablet 100 mg PO QPM 07/21/23 01/11/24 History levetiracetam 500 mg tablet 500 mg PO BID 07/21/23 01/11/24 History PFS Medical History Hypercholesterolemia Chronic pulmonary edema Hypertension Allergic rhinitis Personal history of immunosupression therapy Venous insufficiency Cognitive impairment Right inguinal hernia Seizure disorder Varicose veins of both lower extremities Melanocytic nevi of trunk Chronic acquired lymphedema left arm Renal mass of [place] kidney, s/p removal at [facility] [place] TBI (traumatic brain injury) IgA nephropathy Gout H/O left inguinal hernia repair H/O deep venous thrombosis Surgical History kidney transplant bunionectomy Nephrectomy 05/2017 Repair of inguinal hernia hx of left repair, right repair 08/26/[address] Michaud Colonoscopy - MAC (02/22/17) 05/24/12; TUBULAR ADENOMA Social History Smoking/Tobacco Use Status: Never Smoking risk assessment performed?: Yes Alcohol Intake: never Drug use: Never Substance use type: does not use Do you feel safe at home: Yes Do you feel safe in your relationship?: Yes Coding Diagnoses Palliative care status Z51.5 End stage renal disease on dialysis due to type 1 diabetes mellitus E10.22; N18.6; Z99.2 Status post kidney transplant Z94.0 Nonintractable epilepsy without status epilepticus, unspecified epilepsy type G40.909 Epilepsy type: unspecified Intractability: not intractable Status epilepticus: without status epilepticus Personal history of traumatic brain injury Z87.820 Memory changes R41.3 cc: --------- Dictated by: Devi Starr NP Dictated: 01/11/24 Time: 1607 Date: 01/11/241616 Date: Date: Transcribed Date: 01/11/24 Transcribed Time: 1607 By: BALWINDER This is privileged, confidential information, intended only for the provider named. Any use or distribution by any person other than this provider is strictly prohibited. If you receive this report in error, please notify us immediately at [phone] and return the original report to us at the address above. Thank you. ILEANA GILLIAM, CATRACHITO [address], [place], [address], [facility] 01/12/2024 06:58:09 Procedures Surgical History None recorded. Imaging Results Imaging Date Name Status LastModified by Organiz [facility] Details LastModified Time 09/10/2023 CT, angiogram, head, w/ contrast completed [address] [facility] [address] [place], [address], 09/16/2023 09:24:58 09/10/2023 CT, angiogram, neck, w/ contrast completed [address] [facility] [address] [place], [address], 09/16/2023 09:24:19 09/10/2023 CT, head, w/o contrast completed [address] [place], [address], 09/16/2023 09:23:25 09/10/2023 XR, chest, 1 view completed [address] [facility] [address] [place], [address], 09/13/2023 14:06:55 10/09/2022 imaging/diagn ostic result completed Information not available 03/27/2024 02:49:46 11/29/2020 imaging/diagn ostic result completed Information not available 03/27/2024 02:50:14 10/19/2022 imaging/diagn ostic result completed Information not available 03/27/2024 02:51:47 11/29/2020 imaging/diagn ostic result completed Information not available 03/27/2024 02:52:59 10/19/2022 imaging/diagn ostic result completed Information not available 03/27/2024 02:53:00 04/15/2021 imaging/diagn ostic result completed Information not available 03/27/2024 02:53:41 10/19/2022 imaging/diagn ostic result completed Information not available 03/27/2024 02:53:42 04/01/2024 vrad report completed [email or web address] [place], [address] 04/04/2024 12:50:33 04/01/2024 vrad report completed [email or web address] [place], [address] 04/04/2024 13:06:28 04/01/2024 x-ray imaging report completed INTERFACE [address] [place], [address] 04/01/2024 15:35:27 04/01/2024 CT imaging report completed INTERFACE [address] [place], [address] 04/01/2024 17:23:27 Procedure Notes None recorded. Medical Equipment None Reported. Allergies Allergen ID Allergen Name Allergen Category Reaction Reaction Severity Criticality Documentation Date Start Date Code Code System Note Provider Name and Address Organization Details Recorded Time 51460 hydrochlo rothiazid e medicatio n Not available Not available Not available 05/21/20232020 5487 RxNorm Not Available [facility] 3 16:19:16 79480 benazepri l hydrochlo ride medicatio n Not available Not available Not available 05/21/20232020 21632 8 RxNorm Not Available [facility] 3 16:19:17 80954 codeine medicatio n Not available Not available Not available 05/21/20232020 2670 RxNorm Aller gyCod e: '[id number] [id number]'; Aller gyNam e: 'CODE INE'; Aller gyCon ceptT ype: 'NDC' ; Not Available [facility] 3 16:19:17 Medications Name Sig Start Date Stop Date Status Note LastModified by Organization Details LastModified Time losartan 50 mg tablet Take 1 tablet by mouth once a day 08/24 completed Not Available Not Available Not Available amoxicilli n 500 mg capsule active Not Available Not Available Not Available carvedilol 6.25 mg tablet Take 1 tablet by mouth twice a day 08/14 completed Not Available Not Available Not Available carvedilol 12.5 mg tablet 1 TABLET TWICE A DAY 10/09 completed Not Available Not Available Not Available levetirace vázquez 500 mg tablet TAKE 1 TAB TABLET TWICE A DAY DIRECTED active Not Available Not Available No t Available allopurino l 100 mg tablet 1 TAB BY MOUTH DAILY active Not Available Not Available No t Available aspirin 81 mg tablet,del ayed release TAKE 1 TAB BY MOUTH DAILY 2023 active Not Available Not Available Not Avai lable acetaminop hen 500 mg tablet Take 1 tab TID PRN 2020 active Not Available Not Available Not Avai lable pantoprazo le 20 mg tablet,del ayed release TAKE 1 TAB TABLET BY MOUTH ONCE A DAY active Not Available Not Available No t Available levothyrox ine 100 mcg tablet TAKE 1 TAB TABLET BY MOUTH ONCE A DAY 2023 active Not Available Not Available Not Avai lable Tessalon Perles 100 mg capsule Take 1 capsule by mouth every eight hours as needed for cough. 2020 active PRN order Not Available Not Available Not Available levetirace vázquez 250 mg tablet KEPPRA 250MG TAKE 1 TAB PO AFTER DIALYSIS active Not Available Not Available No t Available lidocaine HCl 3 % topical cream APPLY 1 A SMALL AMOUNT TO AFFECTED AREA TWICE A DAY NEEDED FOR PAIN APPLY TO RIGHT HIP BID PRN 2022 active Not Available Not Available Not Avai lable aspirin 81 mg tablet Take 1 tablet by mouth once a day 10/13 completed Not Available Not Available Not Available tacrolimus 1 mg capsule, immediate- release Take 1 capsule by mouth twice a day active Not Available Not Available No t Available Mucinex 600 mg tablet, extended release Take one tab PO BID 2020 active Not Available Not Available Not Avai lable Tania-Madiha 0.8 mg tablet Take 1 tablet by mouth once a day active Not Available Not Available No t Available multivitam in 1 tablet once a day 10/13 completed Not Available Not Available Not Available sevelamer carbonate 800 mg tablet TAKE 1 TAB TABLET BY MOUTH THREE TIMES A DAY * AND 1 TAB TABLET NEEDED TAKEN WITH FOOD 07/29 completed Not Available Not Available Not Available Tirosint 100 mcg capsule Take 1 capsule once a day 03/25 completed Not Available Not Available Not Available Veltassa 25.2 gram oral powder packet On non dialysis days active Not Available Not Available No t Available Daily-Madiha (with folic acid) 400 mcg tablet 1 TAB BY MOUTH A DAY 06/25 completed Not Available Not Available Not Available Evusheld (EUA) 150 mg/1.5 mL-150 mg/1.5 mL intramuscu lar solution Inject 1 2 administe red every 6 months 01/14 completed Not Available Not Available Not Available Vitals Date Recorded Body weight Body temperature Oxygen saturation Oxygen saturation in Arterial blood by Pulse oximetry Heart rate Respiratory rate Systolic blood pressure Diastolic blood pressure Provider Name and Address Organization Details Last Updated DateTime 4 84109.8 9 g 97.9 [degF] 94 % 94 % 53 /min 18 /min 124 mm[Hg] 62 mm[Hg] ILEANA GILLIAM, CATRACHITO [address], [place], [address] , [facility] 4 10:46:28 Date Recorded Body height Body mass index (BMI) Body weight Body temperature Oxygen saturation Oxygen saturation in Arterial blood by Pulse oximetry Heart rate Respiratory rate Systolic blood pressure Diastolic blood pressure Provider Name and Address Organization Details Last Updated DateTime 4 177.8 cm 22.5 kg/m2 91813.2 1 g 97.7 [degF] 96 % 96 % 59 /min 16 /min 98 mm[Hg] 68 mm[Hg] Iraida Fry RN [facility] 4 11:39:37 Date Recorded Body height Body mass index (BMI) Body weight Body temperature Oxygen saturation Oxygen saturation in Arterial blood by Pulse oximetry Heart rate Respiratory rate Systolic blood pressure Diastolic blood pressure Provider Name and Address Organization Details Last Updated DateTime 4 177.8 cm 22.4 kg/m2 80912.8 1 g 97.3 [degF] 97 % 97 % 60 /min 17 /min 128 mm[Hg] 64 mm[Hg] ILEANA GILLIAM, APPLIQUE CUTTER [address], [place], [address] , [facility] 4 07:17:08 Social History Question Answer Notes LastModified by Organizat ion Details LastModified Time Tobacco Smoking Status Never Smoker ILEANA GILLIAM APRN [address], [place], [address], [facility] 07/29/2023 10:51:29 What Was The Date Of Your Most Recent Tobacco Screening? 12/09/2023 Information not available 12/09/2023 Do You Or Have You Ever Used Any Other Forms Of Tobacco Or Nicotine? No Information not available 12/09/2023 Sex: Male Functional Status None recorded. Mental Status None recorded. Family History Nothing Reported Notes:*Problem: Father- dece ased Mother- living- diabetes, HTN Siblings- 1 brother- alive and well Children- none HTN: yes CAD: no DM: yes Breast CA: no Colon CA:no Prostate CA: no Medical History No medical history recorded. Immunizations Vaccine Type Date Status Provider Name and Address Organization Details Recorded Time rubella 05/09/2015 completed Not Available [facility] 05:42:40 rubella 06/11/2006 completed Not Available [facility] 05:42:41 pneumococcal, unspecified formulation 05/20/2016 completed Not Available [facility] 05/21/2023 05:42:41 Tdap 11/26/2016 completed Not Available [facility] 05:42:41 Influenza, split virus, quadrivalent, PF 02/08/2015 completed Not Available [facility] 05/21/2023 05:42:41 Influenza, split virus, quadrivalent, PF 03/23/2016 completed Not Available [facility] 05/21/2023 05:42:41 Influenza, split virus, quadrivalent, PF 03/24/2019 completed Not Available [facility] 05/21/2023 05:42:41 Influenza, split virus, quadrivalent, PF 03/29/2020 completed Not Available [facility] 05/21/2023 05:42:42 Influenza, split virus, quadrivalent, PF 03/31/2017 completed Not Available [facility] 05/21/2023 05:42:42 Influenza, split virus, quadrivalent, PF 04/09/2003 completed Not Available [facility] 05/21/2023 05:42:42 Influenza, split virus, quadrivalent, PF 04/17/2022 completed Not Available [facility] 05/21/2023 05:42:42 Influenza, split virus, quadrivalent, PF 04/20/2013 completed Not Available [facility] 05/21/2023 05:42:42 Influenza, split virus, quadrivalent, PF 05/11/2018 completed Not Available [facility] 05/21/2023 05:42:42 Influenza, split virus, quadrivalent, PF 06/11/2006 completed Not Available [facility] 05/21/2023 05:42:42 zoster recombinant 10/29/2020 completed Not Available [facility] 05/21/2023 05:42:42 zoster recombinant 02/01/2021 completed Not Available [facility] 05/21/2023 05:42:42 COVID-19, mRNA, LNP-S, PF, 100 mcg/0.5mL dose or 50 mcg/0.25mL dose 12/25/2021 completed Not Available [facility] 05/21/2023 05:42:43 COVID-19, mRNA, LNP-S, PF, 30 mcg/0.3 mL dose 07/23/2020 completed Not Available [facility] 05/21/2023 05:42:43 COVID-19, mRNA, LNP-S, PF, 30 mcg/0.3 mL dose 08/13/2020 completed Not Available [facility] 05/21/2023 05:42:43 COVID-19, mRNA, LNP-S, PF, 30 mcg/0.3 mL dose 04/02/2021 completed Not Available [facility] 05/21/2023 05:42:43 COVID-19, mRNA, LNP-S, bivalent, PF, 30 mcg/0.3 mL dose 01/27/2023 completed Not Available [facility] 05/21/20 05:42:44 COVID-19, mRNA, LNP-S, bivalent, PF, 30 mcg/0.3 mL dose 05/19/2022 completed Not Available [facility] 05/21/20 05:42:44 COVID-19, mRNA, LNP-S, bivalent, PF, 30 mcg/0.3 mL dose 06/03/2022 completed Not Available [facility] 05/21/20 05:42:44 pneumococcal polysaccharide PPV23 04/19/2019 completed Not Available [facility] 2022 05:42:44 pneumococcal polysaccharide PPV23 05/23/2013 completed Not Available [facility] 2022 05:42:44 Hep B, unspecified formulation 08/25/2021 completed Not Available [facility] 05/21/2023 05:42:45 COVID-19, mRNA, LNP-S, PF, dusty-sucrose, 30 mcg/0.3 mL 06/17/2023 completed LINUS MILES CMA [facility] 06/17/2023 14:34:26 Past Encounters Encounter ID Performer Location Encounter Start Date Encounter Closed Date Diagnosis/Indication Diagnosis SNOMED-CT Code Diagnosis ICD10 Code [id number] ILEANA GILLIAM [address] [address] 06/17/2023 10:08:17 06/17/2023 15:23:56 Active or passive immunization 320663968 Z23 [id number] ILEANA GILLIAM [address] [address] 07/29/2023 07:07:29 07/29/2023 11:08:37 Pure hypercholesterolemia 578628795 E78.00 Nonulcer dyspepsia 87996 07 K30 Hypothyroidism 09806042 E03.9 Epilepsy 14206133 G40.90 9 End-stage renal disease 91199585 N18.6 Chronic pu lmonary edema 84604804 J81.1 Gout 23246043 M10.9 Impaired f asting glycemia 636423007 R73.01 Essential hypertension 53279812 I10 Allergic rhinitis 686119 04 J30.9 [id number] [address]ET G[address] [address] 09/21/2023 11:27:52 09/21/2023 12:33:33 Epilepsy 68566444 G40.909 Hypothyroidism 97048651 E03.9 Impaired f asting glycemia 110338210 R73.01 Nonulcer dyspepsia 30974 07 K30 [id number] ILEANA GILLIAM [address] [address] 12/09/2023 07:11:21 12/09/2023 14:46:22 Chronic pulmonary edema 62216353 J81.1 Pure hypercholesterolemia 937329544 E78.00 Hypothyroidism 78188237 E03.9 Impaired f asting glycemia 752233545 R73.01 Nonulcer dyspepsia 23722 07 K30 End-stage renal disease 33035080 N18.6 Gout 45855161 M10.9 Essential hypertension 40959374 I10 Epilepsy 19666135 G40.90 9 Allergic rhinitis 195902 04 J30.9 Health Concerns Section Related Observation LastModified by Organization Detai ls LastModified Time None Recorded Concern Status LastModified by Organization Details LastModified Time None Recorded Advance Directives Directive None Recorded Payers Encounter Date Sequence Insurance Name Policy Number Policy Butterfield Covered Member ID Butterfield Member ID Guarantor Name 06/17/2023 1 [place] [employer] Adama Ram [id number] Adama Ram 06/17/2023 2 [facility] (MEDICAID) Adama Ram [id number] Adama Ram 07/29/2023 1 [place] Adama Ram [id number] Adama Ram 07/29/2023 2 [facility] (MEDICAID) Adama Ram [id number] Adama Ram 09/21/2023 1 [place] Adama Ram [id number] Adama Ram 09/21/2023 2 [facility] (MEDICAID) Adama Ram [id number] Adama Ram 12/09/2023 1 [place] Adama Ram [id number] Adama Ram 12/09/2023 2 [facility] (MEDICAID) Adama Ram [id number] Adama Ram Notes Date Note Type Note Provider Name and Address Organization Details Recorded Time 06/17/2023 text/html HPI Notes: Home visit for vaccination. Needs [place] vaccine. Denies fevers or chills. Has no concerns. ILEANA GILLIAM, APPLIQUE C[employer]TER [address], [place], [address], [place] [facility]. 06/17/2023 13:59:00 07/29/2023 text/html HPI Notes: Home visit for follow-up: -chronic pulmonary edema. asymptomatic -hypercholesterolem ia. without statin. -hypothyroidism. Takes levothyroxine at 100mcg -impaired fasting glucose. family hx of diabetes. Prediabetes. -dyspepsia. Takes pantoprazole. -end stage renal disease, failed transplant, IgA nephropathy, hyperkalemia, anemia in chronic kidney disease, iron deficiency anemia, secondary hyperparathyroidism . on meds, on dialysis. Since last visit had loss of dialysis access and was admitted to [facility] [place] [place] with change out of device. -gout. Takes allopurinol, asymptomatic. Last visit uric acid was reduced to 100mg, uric acid level was slightly low at 3.8. -hypotension chronic, hypertension. Takes coreg, losartan. Had referral to cardiology but they did not want to see patient because he is on dialysis; recommended [facility]. -epilepsy, hx of TBI. on Keppra. -environmental allergies. no complaints. -Cerumen impaction. Will evaluate ears today, gets routine manual removal. ILEANA GILLIAM, CATRACHITO [address], [place], [address], [facility]. 07/29/2023 13:59:51 09/21/2023 text/html HPI Notes: Is he re for follow-up hospital. on 09/09 he went to the ER. He had been just completing dialysis and the nurse felt as though he had a stroke. He was altered, did not appear well, was aphasic when got to ER. Vitals throughout Er visit were overall normal for Adama. Labs showed elevated Cr, elevated glucose, elevated alk phos, elevated total protein, low sodium; these are not out of his normal range. He was neg for RSV, flu, COVID. EKG showed no arrhythmias or ST elevation/ depression. CT of head without intracranial hemorrhage. CTA of head and neck was normal. While in the ER he had a tonic clonic seizure, witnessed by staff, was provided ativan and a loading dose of keppra. CXR was normal. Because of this, was transferred to higher echelon of care, only available facility was [facility]. on 09/09 was admitted to [facility]1] in [place]. Discharged on 09/13/23. Rec'd dialysis while at facility. After neurology evaluation, decision was to add keppra 250mg after dialysis. Does see neurology for gait imbalance (suspected r/t peripheral neuropathy), memory changes with mood changes/ irritability complicated by prior TBI, seizures, neuropathy, stress, memory. Has not FU to date. 09/21/23. Feels good. [place] hospital stay was good, was necessary. just fine since going back to the [facility]. Denies fevers, chills. Denies malaise. sleeping well. Denies syncope, light headed, dizzy. not aware of any seizures. Denies headaches. Denies nausea/ vomiting. Denies diarrhea, constipation. Denies heartburn/ reflux. Once in a while he will have rhinitis. Called [facility], spoke with Anayeli. She has not seen any seizures, and has no concerns. ILEANA GILLIAM, APPLIQUE CUTTER [address], [place], [address], [facility]. 09/21/2023 13:10:26 12/09/2023 text/html HPI Notes: Home visit for follow-up: has no concerns. -chronic pulmonary edema. asymptomatic -hypercholesterolem ia. without statin. -hypothyroidism. Takes levothyroxine at 100mcg -impaired fasting glucose. family hx of diabetes. Prediabetes. -dyspepsia. Takes pantoprazole. -end stage renal disease, failed transplant, IgA nephropathy, hyperkalemia, anemia in chronic kidney disease, iron deficiency anemia, secondary hyperparathyroidism . on meds, on dialysis. Since last visit had loss of dialysis access and was admitted to [facility] [place], [place] with change out of device. -gout. Takes allopurinol, asymptomatic. Last visit uric acid was reduced to 100mg, uric acid level was slightly low at 3.8. -hypotension chronic, hypertension. Takes coreg, losartan. Had referral to cardiology but they did not want to see patient because he is on dialysis; recommended norvas. -- update 12.09.23- BP trends 130/82 pulse 64; 146/74, pulse 60; 146/72, pulse 60; 128/64 pulse 67 -epilepsy, hx of TBI. on Keppra. In September was hospitalized for seizures and his keppra was increased with an additional dose after each dialysis session. -environmental allergies. no complaints. -Cerumen impaction. Will evaluate ears today, gets routine manual removal. ILEANA GILLIAM, APPLIQUE CUTTER [address], [place], [address], [place] - [facility], [facility]. 12/09/2023 07:25:01
== END 2024-04-22 11:33 | disposition home or self-care (01) ==
PROVIDERS: Emergency Provider Student in an Organized Health Care Education/Training Program; PCP Nurse Practitioner Family
DX: S30.0XXA Contusion of lower back and pelvis, initial encounter (principal); E78.00 Pure hypercholesterolemia, unspecified; E10.22 Type 1 diabetes mellitus with diabetic chronic kidney disease; I12.0 Hypertensive chronic kidney disease with stage 5 chronic kidney disease or end stage renal disease; N18.6 End stage renal disease; I10 Essential (primary) hypertension; G40.909 Epilepsy, unspecified, not intractable, without status epilepticus; Z79.82 Long term (current) use of aspirin; Z99.2 Dependence on renal dialysis; Z94.0 Kidney transplant status; Z79.4 Long term (current) use of insulin; Z90.5 Acquired absence of kidney
CPT/HCPCS: 99283

== ENCOUNTER → 2024-05-16 11:09 | Outpatient (BNVA) | payer MEDICARE, MEDICAID, SELFPAY | PROVIDERS: PCP Nurse Practitioner Family; Visit Provider Psychiatry & Neurology Neurology | DX: G40.909 Epilepsy, unspecified, not intractable, without status epilepticus (principal); R42 Dizziness and giddiness; I95.3 Hypotension of hemodialysis; G62.9 Polyneuropathy, unspecified; R41.3 Other amnesia; R41.89 Other symptoms and signs involving cognitive functions and awareness; Z87.820 Personal history of traumatic brain injury | CPT/HCPCS: 99213 ==

== ENCOUNTER → 2024-05-23 11:19 | Outpatient (BNVA) | payer MEDICARE, MEDICAID, SELFPAY | PROVIDERS: PCP Nurse Practitioner Family; Referring Provider Nurse Practitioner Family; Visit Provider Podiatrist | DX: L60.3 Nail dystrophy (principal); M79.671 Pain in right foot; M79.672 Pain in left foot; G62.9 Polyneuropathy, unspecified; E10.22 Type 1 diabetes mellitus with diabetic chronic kidney disease; N18.6 End stage renal disease; Z99.2 Dependence on renal dialysis; L97.526 Non-pressure chronic ulcer of other part of left foot with bone involvement without evidence of necrosis; B35.1 Tinea unguium; L03.116 Cellulitis of left lower limb | CPT/HCPCS: 11721; 99214 ==

== ENCOUNTER 2024-05-23 12:26 | Outpatient (REF) | payer MEDICARE, MEDICAID, SELFPAY | END 2024-05-23 12:27 | disposition home or self-care (01) | LOC: LBN 12:26 | PROVIDERS: PCP Nurse Practitioner Family; Visit Provider Podiatrist | DX: L97.529 Non-pressure chronic ulcer of other part of left foot with unspecified severity; L03.032 Cellulitis of left toe | CPT/HCPCS: 87070; 87075; 87205 ==

== ENCOUNTER 2024-05-23 13:06 | Outpatient (CLI) | payer MEDICARE, MEDICAID, SELFPAY ==
--- NOTE | 2024-05-23 12:15 | DI.RAD_ITS ---
Exam(s) XR FOOT RT COMPLETE EXAM: XR FOOT RT COMPLETE CLINICAL HISTORY: comparison xray, foot pain of metatarsal heads, eula foot pain, M79.671, M79. TECHNIQUE: 2D digital imaging was performed of the right foot. Three images were obtained. AP, obl ique and lateral views were obtained. COMPARISON: CR XR FOOT RT COMPLETE from 04/15/2021 FINDINGS: BONES: No acute fracture is present. No bony destructive lesion is seen. Postsurgical changes in the 1st metatarsal bone. There is a lucency with surrounding sclerosis in the head of the 3rd metatarsal bone. There is also loss of volume of the head of the 3rd metatarsal again seen. The findings may reflect avascular necrosis. JOINTS: No dislocation present. Hammertoe deformities are present involving the 2nd, 3rd and 4th toes . There is arthrosis seen particularly at the 1st MTP joint. SOFT TISSUE: Vascular calcifications are present. IMPRESSION: 1. Stable postsurgical changes in the right foot. 2. 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 3. Chronic changes including arthrosis and hammertoe deformities. DATA REPOSITORY: RADIATION DOSE DELIVERED:
--- NOTE | 2024-05-23 12:15 | DI.RAD_ITS ---
Exam(s) XR FOOT LT COMPLETE EXAM: XR FOOT LT COMPLETE CLINICAL HISTORY: r/o osteo L 2nd toe (medial) probes to capsule, lt foot ulcer, l97.529. TECHNIQUE: 2D digital imaging was performed. Three views. COMPARISON: CR XR FOOT RT COMPLETE from 05/23/2024 FINDINGS: BONES: No acute fracture is present. On the PA view, there is at the in area of bony projection of t he middle phalanx at the medial, distal aspect. This area is obscured on the other two views. JOINTS: No dislocation present. Hammertoe deformities. SOFT TISSUE: Vascular calcifications. Swelling of the 2nd toe. No foreign body. IMPRESSION: Post soft tissue swelling of the 2nd toe. Quadrant of an area of bony erosion at the middle phalanx. DATA REPOSITORY: RADIATION DOSE DELIVERED:
--- OUTSIDE RECORDS SUMMARY | 2024-05-23 13:10 | XMS_ITS ---
Author Name Heath Soloriocy Address [address] [place] [id number] Phone [phone] Organization [facility], NA DOCUMENT DISCLAIMER Multiple document versions may exist, please be sure you review the latest version. The information in the [facility] Progress Note Document represents a providers documented clinical note containing certain health and medical information. It may not contain the complete medical history for the patient and should be independently verified. The represented time in the document is Eastern Time PROVIDER ROUNDING NOTE BASIC Patient:?CHRISTY?ARNOL,?1960,?63y,?M Dialysis?Location:?[place] Attending?Tank Maker Wood:?Crystal?Baldemar Service?Date:?05/03/2024 Service?Provider:?Luna?Lyndsey,?PRINTER [employer] I?met?face?to?face?with?the?patient?today. OVERVIEW The?patient?presented?with?ESRD?on?dialysis Primary?cause?of?renal?failure:?Unspecified?complication?of?kidney?transplant Comments:?04/14/24?-?Stable?hemodialysis?treatment?with?no?co mplaints?or?acute?issues. 04/07/24?-?Stable?treatment.?Meeting?EDW?and?adequacy?goals. [...] ??EDW:?71 ??Duration:?3:45 ??Calcium:?2.5 ??Bicarb:?35 ??Rx?updated?on:?03/15/2024 TREATMENT?ASSESSMENT BP?Stand?Pre ??05/01/2024:?128/78 ??04/28/2024:?95/42 ??04/26/2024:?155/87 BP?Sit?Pre ??05/01/2024:?110/52 ??04/28/2024:?109/56 ??04/26/2024:?130/98 BP?Stand?Post ??05/01/2024:?120/76 ??04/28/2024:?122/67 ??04/26/2024:?140/86 BP?Sit?Post ??05/01/2024:?100/52 ??04/28/2024:?153/75 ??04/26/2024:?138/79 Tx?Duration ??05/01/2024:?3:44 ??04/28/2024:?3:47 ??04/26/2024:?3:48 Missed?Treatments 0?-?last?30?days 0?-?last?60?days FLUID?ASSESSMENT EDW?(kg) ??05/01/2024:?71.0 ??04/28/2024:?71.0 ??04/26/2024:?71.0 Weight?Pre?(kg) ??05/01/2024:?73.4 ??04/28/2024:?71.7 ??04/26/2024:?73.2 Weight?Post?(kg) ??05/01/2024:?70.4 ??04/28/2024:?71.1 ??04/26/2024:?70.6 PWV?(kg) ??05/01/2024:?-0.6 ??04/28/2024:?0.1 ??04/26/2024:?-0.4 UF?Rate?(mL/kg/hr) ??05/01/2024:?11.4 ??04/28/2024:?2.2 ??04/26/2024:?9.7 ADEQUACY?ASSESSMENT spKt/V,?URR ??04/17/2024:?1.57,?74.0 ??03/13/2024:?1.63,?74.0 ??02/14/2024:?1.52,?71.0 ACCESS?ASSESSMENT ??Access?Type:?CVCatheter ??Access?SubType:?Tunneled ??Access?Status:?Active?(In?Use)?-?12/01/2021 ??Access?Location:?Chest ??Placed:?09/29/2021 ANEMIA?ASSESSMENT HGB,?TSAT ??04/24/2024:?11.9,?- ??04/17/2024:?12.0,?35.0 ??04/10/2024:?12.1,?- ?? Ferritin ??04/17/2024:?778.0 ??03/13/2024:?702.0 ??02/14/2024:?681.0 BMM?ASSESSMENT PTH,?Intact ??04/17/2024:?297.0 ??03/13/2024:?153.0 ??02/14/2024:?400.0 ?? Calcium,?Phosphorus ??04/17/2024:?8.8,?4.4 ??03/20/2024:?9.2,?- ??03/13/2024:?9.7,?4.0 Vitamin?D?(Calcitriol)?Oral?(mcg) ??05/01/2024:?0.75 ??04/28/2024:?0.75 ??04/26/2024:?0.75 NUTRITION?ASSESSMENT Potassium,?Albumin ??04/24/2024:?5.3,?- ??04/17/2024:?5.2,?4.0 ??04/10/2024:?5.4,?- ?? eNPCR ??04/17/2024:?0.89 ??03/13/2024:?0.92 ??02/14/2024:?0.83 DIAGNOSIS Chief?Complaint:?N18.6?End?stage?renal?disease Patient?data?updated?05/03/2024?at?12:47?PM Signed?By:?Lyndsey,?Luna,?PRINTER [employer]??on?05/03/2024?12:47:11 PM END OF DOCUMENT
--- OUTSIDE RECORDS SUMMARY | 2024-05-23 13:11 | XMS_ITS ---
Author Name Heath Soloriocy Address [address] [place] [address] Phone [phone] Organization [facility], NA DOCUMENT DISCLAIMER Multiple document versions may exist, please be sure you review the latest version. The information in the [facility] Progress Note Document represents a providers documented clinical note containing certain health and medical information. It may not contain the complete medical history for the patient and should be independently verified. The represented time in the document is Eastern Time PROVIDER ROUNDING NOTE BASIC Patient:?CHRISTY?ARNOL,?1960,?63y,?M Dialysis?Location:?[place] Attending?Brewery Worker:?Crystal?Baldemar Service?Date:?05/19/2024 Service?Provider:?Luna?Lyndsey,?STOCK BUYER I?met?face?to?face?with?the?patient?today. OVERVIEW The?patient?presented?with?ESRD?on?dialysis Primary?cause?of?renal?failure:?Unspecified?complication?of?kidney?transplant Comments:?05/15/24?-?Stable?dialysis?treatment.? 04/14/24?-?Stable?hemodialysis?treatment?with?no?complaints?or?acute?issues. 04/07/24?-?Stable?treatment.?Meeting?EDW?and?adequacy?goals. 03/24/24?-?Discussed?in?detail?what?DNR?means?and?what&# 160;resuscitation?means.?When?pt?asked?if?he?wished?for&#160 ;CPRN?to?be?preformed?if?necessary,?he?answered?well&# 160;certainly!.?Team?made?aware. 02/21/24?-?Stable?treatment 02/11/24?-?Stable?dialysis?treatment?with?no?acute?issues&#160 [...] Blood?pressure?stable.? Medications?and?labs?reviewed. LAST?HOSPITALIZATION Discharge?Diagnosis:?G40.89?Other?seizures Admission?Date?09/10/23 Discharge?Date?09/14/23 DIALYSIS?PRESCRIPTION ??IHD?3x?Week?Start?date:?05/05/24 ??Dialyzer:?180NRe?Optiflux ??BFR:?450 ??DFR:?Manual?800 ??Potassium:?2.0 ??Sodium:?137 ??EDW:?70.5 ??Duration:?3:45 ??Calcium:?2.5 ??Bicarb:?35 ??Rx?updated?on:?05/05/2024 TREATMENT?ASSESSMENT BP?Stand?Pre ??05/17/2024:?127/43 ??05/15/2024:?97/70 ??05/12/2024:?105/70 BP?Sit?Pre ??05/17/2024:?125/52 ??05/15/2024:?118/66 ??05/12/2024:?98/56 BP?Stand?Post ??05/17/2024:?151/89 ??05/15/2024:?121/83 ??05/12/2024:?132/91 BP?Sit?Post ??05/17/2024:?134/79 ??05/15/2024:?118/85 ??05/12/2024:?145/100 Tx?Duration ??05/17/2024:?3:18 ??05/15/2024:?3:47 ??05/12/2024:?3:54 Missed?Treatments 0?-?last?30?days 0?-?last?60?days FLUID?ASSESSMENT EDW?(kg) ??05/17/2024:?70.5 ??05/15/2024:?70.5 ??05/12/2024:?70.5 Weight?Pre?(kg) ??05/17/2024:?72.0 ??05/15/2024:?73.4 ??05/12/2024:?72.1 Weight?Post?(kg) ??05/17/2024:?70.4 ??05/15/2024:?70.6 ??05/12/2024:?70.1 PWV?(kg) ??05/17/2024:?-0.1 ??05/15/2024:?0.1 ??05/12/2024:?-0.4 UF?Rate?(mL/kg/hr) ??05/17/2024:?6.9 ??05/15/2024:?10.5 ??05/12/2024:?7.3 ADEQUACY?ASSESSMENT spKt/V,?URR ??05/15/2024:?1.27,?65.0 ??04/17/2024:?1.57,?74.0 ??03/13/2024:?1.63,?74.0 ACCESS?ASSESSMENT ??Access?Type:?CVCatheter ??Access?SubType:?Tunneled ??Access?Status:?Active?(In?Use)?-?12/01/2021 ??Access?Location:?Chest ??Placed:?09/29/2021 ANEMIA?ASSESSMENT HGB,?TSAT ??05/15/2024:?11.9,?34.0 ??05/08/2024:?11.2,?- ??05/01/2024:?11.3,?- ?? Ferritin ??05/15/2024:?827.0 ??04/17/2024:?778.0 ??03/13/2024:?702.0 BMM?ASSESSMENT PTH,?Intact ??05/15/2024:?108.0 ??04/17/2024:?297.0 ??03/13/2024:?153.0 ?? Calcium,?Phosphorus ??05/15/2024:?10.3,?2.7 ??04/17/2024:?8.8,?4.4 ??03/20/2024:?9.2,?- Vitamin?D?(Calcitriol)?Oral?(mcg) ??05/17/2024:?0.75 ??05/15/2024:?0.75 ??05/12/2024:?0.75 NUTRITION?ASSESSMENT Potassium,?Albumin ??05/15/2024:?5.4,?4.3 ??05/08/2024:?4.9,?- ??05/01/2024:?5.3,?- ?? eNPCR ??05/15/2024:?0.82 ??04/17/2024:?0.89 ??03/13/2024:?0.92 DIAGNOSIS Chief?Complaint:?N18.6?End?stage?renal?disease Patient?data?updated?05/19/2024?at?12:49?PM Signed?By:?Lyndsey,?Luna,?STOCK BUYER??on?05/19/2024?12:49:33 PM END OF DOCUMENT
--- OUTSIDE RECORDS SUMMARY | 2024-05-23 13:11 | XMS_ITS ---
Author Name [facility] Address [address] [place] [address] Phone [phone] Organization [facility] e, NA DOCUMENT DISCLAIMER Multiple document versions may exist, please be sure you review the latest version. The information in the [facility] Continuity of Care Document represents a summary [...] Active Vitamin D (Calcitriol) Oral 3X Week 0.50 mcg Oral May 19, 2024 May 18, 2025 Active Vitamin D (Calcitriol) Oral 3X Week 0.75 mcg Oral March 17, 2024 March 16, 2025 Discontinued Home Medications Medication Instructions Dosage Route Start Date End Date Stat us acetaminophen 500 mg Take by mouth three [...] Sign Value Date / Time Blood Pressure-sitting 105/71 mmHg May 22, 2024 10:05 AM Blood Pressure-standing 119/78 mmHg May 22, 2024 10:05 AM Heart Rate 70 beats per minute May 22, 2024 10:05 AM Respiratory Rate 18 breaths per minute May 22, 2024 10:05 AM Temperature 96.8 deg. F May 22 10:05 AM Weight Vital Sign Value Date / Time Estimated Dry Weight 70.5 kg May 05, 2024 11:59 PM Pre-Dialysis 72.90 kg May 22 10:05 AM Post-Dialysis 71.30 kg May 22 10:05 AM Other Other Value Date / Time Height 180 cm September 10, 2022 1 2:00 AM Body Mass Index 21.76 kg/m2 May 17 01:06 PM [facility] Tuberculosis Testing TST Date Administered TST Date Read TST Result 2018 08/10/2018 Negative (<5) mm LAB RESULTS Hematology Result Type Result Value Relevant Referen ce Range Interpretation Date Ferritin 663 ng/mL 22 - 322 ng/mL High December 12 024 TIBC (Calc) 220 mcg/dL 185 - 515 mcg/dL - December UIBC/TIBC 148 mcg/dL 155 - 355 mcg/dL Low December 13, 2023 Transferrin Sat. (Calc) 33 % 20 - 55 % - December 13, 2023 WBC (No Diff) 4.71 1000/mcL 4.80 - 10.80 1000/mcL Low December 13, 2023 Neutrophils 62.6 % 40.0 - 75.0 % - December 12 024 Platelets 152 1000/mcL 130 - 400 1000/mcL - December 13, 2023 UIBC/TIBC 133 mcg/dL 155 - 355 mcg/dL Low January 14, 2024 Transferrin Sat. (Calc) 37 % 20 - 55 % - January 14, 2024 TIBC (Calc) 211 mcg/dL 185 - 515 mcg/dL - January Ferritin 652 ng/mL 22 - 322 ng/mL High January 13, 024 Platelets 191 1000/mcL 130 - 400 1000/mcL - January 24, 2024 Neutrophils 61.6 % 40.0 - 75.0 % - January 23, 024 WBC (No Diff) 5.48 1000/mcL 4.80 - 10.80 1000/mcL - January 24, 2024 Platelets 178 1000/mcL 130 - 400 1000/mcL - 2023 Transferrin Sat. (Calc) 35 % 20 - 55 % - February 14, 2024 Ferritin 681 ng/mL 22 - 322 ng/mL High February 14, 2024 UIBC/TIBC 141 mcg/dL 155 - 355 mcg/dL Low February TIBC (Calc) 217 mcg/dL 185 - 515 mcg/dL - February 14, 2024 Neutrophils 63.1 % 40.0 - 75.0 % - February 14, 2024 WBC (No Diff) 5.35 1000/mcL 4.80 - 10.80 1000/mcL - February 14, 2024 Hemoglobin x 3 38.1 % 42.0 [...] Low Septemb er 2023 Hemoglobin x 3 36.6 % 42.0 - 54.0 % Low Septemb er 2023 Hemoglobin x 3 36.3 % 42.0 - 54.0 % Low Septemb er 2023 Platelets 198 1000/mcL 130 - 400 1000/mcL - Octo ana 2023 Retic HGB (CHr) 34.9 pg 25.4 - 31.8 pg High Octob er 2023 Hemoglobin x 3 36 % 42.0 - 54.0 % Low April 17, 2024 MCH 32.1 pg 27.0 - 31.0 pg High April MCHC 32.1 g/dL 30.0 - 36.0 g/dL - April 17, 2024 RDW 13.1 % 11.5 - 14.5 % - April 17, 2024 Iron 78 mcg/dL 45 - 160 mcg/dL - April UIBC/TIBC 143 mcg/dL 155 - 355 mcg/dL Low April 17, 2024 TIBC (Calc) 221 mcg/dL 185 - 515 mcg/dL - April 17, 2024 Transferrin Sat. (Calc) 35 % 20 - 55 % - April 17, 2024 Basophils 4.5 % 0.0 - 1.5 % High April 17 024 CHARIS 2.9 % 0.0 - 4.0 % - April 17 Ferritin 778 ng/mL 22 - 322 ng/mL High April Eosinophil 4.7 % 0.0 - 7.0 % - April 17 WBC (No Diff) 4.84 1000/mcL 4.80 - 10.80 1000/mcL - April 17, 2024 Neutrophils 63.0 % 40.0 - 75.0 % - April Lymphocytes 18.4 % 19.0 - 48.0 % April Monocytes 6.5 % 3.0 - 10.0 % - April 17, 2024 HGB 11.9 g/dL 14.0 - 18.0 g/dL April 24, 2024 Hemoglobin x 3 35.7 % 42.0 - 54.0 % April 24, 2024 HGB 11.3 g/dL 14.0 - 18.0 g/dL May 01, 2024 Hemoglobin x 3 33.9 % 42.0 - 54.0 % May 01, 2024 HGB 11.2 g/dL 14.0 - 18.0 g/dL May 08, 2024 Hemoglobin x 3 33.6 % 42.0 - 54.0 % May 08, 2024 MCHC 32.2 g/dL 30.0 - 36.0 g/dL - May 15, 2024 MCH 32.2 pg 27.0 - 31.0 pg High May HGB 11.9 g/dL 14.0 - 18.0 g/dL Low May 15, 2024 RDW 12.7 % 11.5 - 14.5 % - May RBC 3.69 mill/mcL 4.70 - 6.10 mill/mcL Low May 15, 2024 WBC (No Diff) 5.65 1000/mcL 4.80 - 10.80 1000/mcL - May 15, 2024 HCT 37.0 % 42.0 - 52.0 % Low May Platelets 278 1000/mcL 130 - 400 1000/mcL - Nove mber 2023 Hemoglobin x 3 35.7 % 42.0 - 54.0 % Low Novembe r 2023 Retic HGB (CHr) 33.2 pg 25.4 - 31.8 pg High ana 2023 Neutrophils 62.9 % 40.0 - 75.0 % - May Monocytes 5.8 % 3.0 - 10.0 % - May 15, 2024 Lymphocytes 24.2 % 19.0 - 48.0 % - May Basophils 1.1 % 0.0 - 1.5 % - May 15, 2024 Eosinophil 3.3 % 0.0 - 7.0 % - May 15, 2024 CHARIS 2.7 % 0.0 - 4.0 % - May 15, 2024 Ferritin 827 ng/mL 22 - 322 ng/mL High May Transferrin Sat. (Calc) 34 % 20 - 55 % - May 15 TIBC (Calc) 234 mcg/dL 185 - 515 mcg/dL - 2023 UIBC/TIBC 155 mcg/dL 155 - 355 mcg/dL - May 15, 2024 Iron 79 mcg/dL 45 - 160 mcg/dL - May 15, 2024 Metabolic/Renal Result Type Result Value Relevant Referen ce Range Interpretation Date Potassium 5.2 mEq/L 3.5 - 5.1 mEq/L High February Potassium 5.7 mEq/L 3.5 - 5.1 mEq/L High February BUN, Post 17 mg/dL 6 - 19 mg/dL - March Creatinine, Serum 11.60 mg/dL 0.60 - 1.30 [...] - 80 % - March 13, 2024 Potassium 5.4 mEq/L 3.5 - 5.1 mEq/L High March 20, 2024 Potassium 5.6 mEq/L 3.5 - 5.1 mEq/L High March 27, 2024 Potassium 5.6 mEq/L 3.5 - 5.1 mEq/L High April 03, 2024 Potassium 5.4 mEq/L 3.5 - 5.1 mEq/L High April 10, 2024 BUN/Creat Ratio 6.0 10.0 [...] - 19 mg/dL - April 17, 2024 Potassium 5.3 mEq/L 3.5 - 5.1 mEq/L High April 112023 Potassium 5.3 mEq/L 3.5 - 5.1 mEq/L High April 122023 Potassium 4.9 mEq/L 3.5 - 5.1 mEq/L - April 122023 Sodium 141 mEq/L 136 - 145 mEq/L - May 15, 2024 Potassium 5.4 mEq/L 3.5 - 5.1 mEq/L High May 15, 2024 Chloride 97 mEq/L 96 - 108 mEq/L - May BUN, Post 22 mg/dL 6 - 19 mg/dL High May 15, 2024 URR, Calc 65 % 65 - 80 % - May 15, BUN 63 mg/dL 6 - 19 mg/dL High May 15, 2024 Bicarbonate 21 mEq/L 22 - 29 mEq/L Low May BUN/Creat Ratio 5.6 10.0 - 20.0 Low May 15, 2024 Creatinine, Serum 11.16 mg/dL 0.60 - 1.30 mg/dL High May 15, 2024 HD Adequacy Result Type Result Value Relevant Referen ce Range Interpretation Date Krt/V 0.00 No Reference Ran ge Provided - December 13, 2023 Krt/V 0.00 No Reference Ran ge Provided - January 14, 2024 Krt/V 0.00 No Reference Ran ge Provided - February 14, 2024 spKt/V ([place]augirdas II) 1.63 No Reference Range Provided - March 13, 2024 Krt/V 0.00 No Reference Ran ge Provided - March 13, 2024 wstdKt/V without residual 2.5 No Reference Range Provided - March 13, 2024 spKt/V Gotch 1.63 No Reference Ran ge Provided - March 13, 2024 wstdKt/V 2.5 No Reference Ran ge Provided - March 13, 2024 eKt/V ([place]) 1.42 No Reference Range Provided - March 13, 2024 wstdKt/V, residual 0.0 No Reference Range Provided - March 13, 2024 wstdKt/V without residual 2.5 No Reference Range Provided - April 17, 2024 spKt/V (Daugirdas II) 1.57 No Reference Range Provided - April 17, 2024 eKt/V ([place]) 1.36 No Reference Range Provided - April 17, 2024 Krt/V 0.00 No Reference Ran ge Provided - April 17, 2024 wstdKt/V, residual 0.0 No Reference Range Provided - April 17, 2024 wstdKt/V 2.5 No Reference Ran ge Provided - April 17, 2024 spKt/V Got 1.56 No Reference Ran ge Provided - April 17, 2024 spKt/V (Daugirdas II) 1.27 No Reference Range Provided - May 15, 2024 spKt/V Gotch 1.28 No Reference Ran ge Provided - May 15, 2024 eKt/V ([place]) 1.10 No Reference Range Provided - May 15, 2024 wstdKt/V 2.2 No Reference Ran ge Provided - May 15, 2024 wstdKt/V, residual 0.0 No Reference Range Provided - May 15, 2024 Krt/V 0.00 No Reference Ran ge Provided - May 15, 2024 wstdKt/V without residual 2.2 No Reference Range Provided - May 15, 2024 Bone/Mineral Result Type Result Value Relevant Referen ce Range Interpretation Date Vitamin D 25 Hydroxy 56.5 ng/mL 30.0 - 100.0 ng/mL - June 14, 2023 Magnesium 2.2 mg/dL 1.6 - 2.6 mg/dL - June 14, 2023 Vitamin D 25 Hydroxy 46.0 ng/mL 30.0 - 100.0 ng/mL - September 15, 2023 Magnesium 2.0 mg/dL 1.6 - 2.6 mg/dL - September 15, 2023 Vitamin D 25 Hydroxy 51.5 ng/mL 30.0 - 100.0 ng/mL - December 13, 2023 PTH-Intact, Plasma 601 pg/mL 16 - 80 pg/mL High Dec e 2023 Magnesium 2.3 mg/dL 1.6 - 2.6 mg/dL - December 13, 2023 PTH-Intact, Plasma 217 pg/mL 16 - 80 pg/mL High Jan PTH-Intact, Plasma 400 pg/mL 16 - 80 pg/mL High Feb Calcium, Total 9.7 mg/dL 8.4 - 10.2 mg/dL - 2023 Calcium, Total 9.3 mg/dL 8.4 - 10.2 mg/dL - 2023 Ca x P Product 39 0 - March 13, 2024 Alkaline Phosphatase 86 U/L 40 - 129 U/L - pt2023 Corrected Ca x P Product 39 0 - March 13, Magnesium 2.5 mg/dL 1.6 - 2.6 mg/dL - March 13, 2024 Phosphorus 4.0 mg/dL 2.6 - 4.5 mg/dL - March 13, 2024 Calcium, Total 9.7 mg/dL 8.4 - 10.2 mg/dL - Mar Vitamin D 25 Hydroxy 59.5 ng/mL 30 - 100 ng/mL - March 13, 2024 PTH-Intact, Plasma 153 pg/mL 16 - 80 pg/mL [facility] Mar Calcium, Total 9.2 mg/dL 8.4 - 10.2 mg/dL - Mar Ca x P Product 39 0 - April Calcium, Total 8.8 mg/dL 8.4 - 10.2 mg/dL - 2023 Phosphorus 4.4 mg/dL 2.6 - 4.5 mg/dL - April Corrected Ca x P Product 39 0 - April 17, 2024 PTH-Intact, Plasma 297 pg/mL 16 - 80 pg/mL [facility] Apr [id number] Phosphorus 2.7 mg/dL 2.6 - 4.5 mg/dL - May 15, 2024 PTH-Intact, Plasma 108 pg/mL 16 - 80 pg/mL High May Corrected Ca x P Product 27 0 - 54 - May 15 Ca x P Product 28 0 - 54 - May Calcium, Total 10.3 mg/dL 8.4 - 10.2 mg/dL High Nove mber 2023 Liver/Nutrition Result Type Result Value Relevant Reference Range Interpre tation Date eNPCR 0.92 No Reference Ran ge Provided - March 13, 2024 Albumin (BCG) 4.0 g/dL 3.5 - 5.2 g/dL - 2023 Albumin (BCG) 4.0 g/dL 3.5 - 5.2 g/dL - April 17, 2024 eNPCR 0.89 No Reference Ran ge Provided - April 17, 2024 Albumin (BCG) 4.3 g/dL 3.5 - 5.2 g/dL - 2023 eNPCR 0.82 No Reference Ran ge Provided - May 15, 2024 Immunochemistry Result Type Result Value Relevant [...] (HBsAg) Negative No Reference Range Provided - May 15, 2024 DIALYSIS PRESCRIPTION Conventional Hemodialysis Data Element Value Order Date/Time May 05, 2024 Frequency 3X Week Treatment Days MonWedFri Dialyzer 180NRe Optiflux Treatment Time (Total Minutes) 225 min Blood Flow Rate (mL/min) 450 mL/min Dialysate Flow Rate Manual 800 Estimated Dry Weight 70.5 kg Dialysate Concentrate 2.0 K, 2.5 Ca, [...] 25, 2021 20.0 mcg Intramuscular Comp leted [id number] August 19, 2020 40.0 mcg Intramuscular Completed [id number] August 21, 2019 40.0 mcg Intramuscular Completed PNEUMOVAX April 19, 2019 0.5 mL Intramuscular Com pleted [id number], series 4 of 4 February 20, 2019 40.0 mcg Intramuscular Completed [id number], series 3 of 4 October 17, 2018 40.0 mcg I ntramuscular Completed [id number], series 2 of 4 September 21, 2018 40.0 mcg I ntramuscular Completed [id number]-[id number], series 1 of 4 August 22, 2018 40.0 mcg Intramuscular Completed TRANSPLANT WAITLIST STATUS No Information on Transplant Waitlist Status ADVANCE DIRECTIVES Directive Description Ordered By Effective Date Resuscitation status Full Code Crystal Mcdermott Apr 07, 2024 DIALYSIS TREATMENTS Conventional Hemodialysis Date Pre-Treatment Vitals Post-Treatment Reema ls Duration (hr) BFR (mL/min) Dialysate Dialyzer Dialysis Access Meds Admin Novem 2023 Weight 72.00 kg Weight 70.40 kg 03:18:00 460 2.0 K, 2.5 Ca, 1.0 Mg, 100 Dextrose (G2251) 180nre Optifl ux Blood Pressure-sitting 125/52 mmHg Blood Pressure-sit ting 134/79 mmHg Blood Pressure-standing 127/43 mmHg Blood Pressure-st anding 151/89 mmHg Heart Rate 62 beats per minute Heart Rate 51 beats per minute Respiratory Rate 18 breaths per minute Respiratory Rate 18 breaths per minute Temperature 94.7 deg. F Temperature 95.0 deg. F May 19, 2024 Weight 72.20 kg Weight 69.90 kg 03:56:00 470 2.0 K, 2.5 Ca, 1.0 Mg, 100 Dextrose (G2251) 180nre Optiflux Hemodialysis-CV Catheter-Tunneled, Chest, Left Jugular Access Placed on September 29, 2021 Heparin Sodium (Porcine) 1,000 Units/mL Catheter Lock Arterial; 2300units,Arterial [place] Heparin Sodium (Porcine) 1,000 Units/mL Catheter Lock Venous; 2300units,Venous [place] Heparin Sodium (Porcine) 1,000 Units/mL Systemic; 8000units,Intravenous - push Vitamin D (Calcitriol) Oral; 0.50mcg,Oral Blood Pressure-sitting 135/74 mmHg Blood Pressure-sit ting 140/78 mmHg Heart Rate 63 beats per minute Blood Pressure-standi ng 130/82 mmHg Respiratory Rate 17 breaths per minute Heart Rate 67 beats per minute Temperature 96.0 deg. F Respiratory Rate 18 breaths per minute - - Temperature 96.6 deg. F May 22, 2024 Weight 72.90 kg Weight 71.30 kg 03:48:00 470 2.0 K, 2.5 Ca, 1.0 Mg, 100 Dextrose (G2251) 180nre [facility] Hemodialysis-CV Catheter-Tunneled, Chest, Left Jugular Access Placed on September 29, 2021 Heparin Sodium (Porcine) 1,000 Units/mL Catheter Lock Arterial; 2300units,Arterial [place] Heparin Sodium (Porcine) 1,000 Units/mL Catheter Lock Venous; 2300units,Venous [place] Heparin Sodium (Porcine) 1,000 Units/mL Systemic; 8000units,Intravenous - push Vitamin D (Calcitriol) Oral; 0.50mcg,Oral Blood Pressure-sitting 93/58 mmHg Blood Pressure-sit ting 105/71 mmHg Blood Pressure-standing 91/52 mmHg Blood Pressure-st anding 119/78 mmHg Heart Rate 59 beats per minute Heart Rate 70 beats per minute Respiratory Rate 18 breaths per minute Respiratory Rate 18 breaths per minute Temperature 97.5 deg. F Temperature 96.8 deg. F
--- OUTSIDE RECORDS SUMMARY | 2024-05-23 13:12 | XMS_ITS ---
Author Name Heath Soloriocy Address [address] [place] [id number] Phone [phone] Organization [facility], NA DOCUMENT DISCLAIMER Multiple document versions may exist, please be sure you review the latest version. The information in the [facility] Progress Note Document represents a providers documented clinical note containing certain health and medical information. It may not contain the complete medical history for the patient and should be independently verified. The represented time in the document is Eastern Time PROVIDER ROUNDING NOTE BASIC Patient:?CHRISTY?ARNOL,?1960,?63y,?M Dialysis?Location:?[place] Attending?Supervisor Road Administrator:?Crystal?Baldemar Service?Date:?05/15/2024 Service?Provider:?Luna?Lyndsey,?WILTON WEAVER I?met?face?to?face?with?the?patient?today. OVERVIEW The?patient?presented?with?ESRD?on?dialysis Primary?cause?of?renal?failure:?Unspecified?complication?of?kidney?transplant Comments:?05/15/24?-?Stable?dialysis?treatment.? 04/14/24?-?Stable?hemodialysis?treatment?with?no?complaints?or?acute?issues. 04/07/24?-?Stable?treatment.?Meeting?EDW?and?adequacy?goals. [...] ??EDW:?70.5 ??Duration:?3:45 ??Calcium:?2.5 ??Bicarb:?35 ??Rx?updated?on:?05/05/2024 TREATMENT?ASSESSMENT BP?Stand?Pre ??05/12/2024:?105/70 ??05/10/2024:?111/68 ??05/08/2024:?129/70 BP?Sit?Pre ??05/12/2024:?98/56 ??05/10/2024:?97/63 ??05/08/2024:?120/70 BP?Stand?Post ??05/12/2024:?132/91 ??05/10/2024:?130/79 ??05/08/2024:?131/84 BP?Sit?Post ??05/12/2024:?145/100 ??05/10/2024:?129/64 ??05/08/2024:?125/81 Tx?Duration ??05/12/2024:?3:54 ??05/10/2024:?3:48 ??05/08/2024:?3:50 Missed?Treatments 0?-?last?30?days 0?-?last?60?days FLUID?ASSESSMENT EDW?(kg) ??05/12/2024:?70.5 ??05/10/2024:?70.5 ??05/08/2024:?70.5 Weight?Pre?(kg) ??05/12/2024:?72.1 ??05/10/2024:?73.3 ??05/08/2024:?72.6 Weight?Post?(kg) ??05/12/2024:?70.1 ??05/10/2024:?70.5 ??05/08/2024:?70.6 PWV?(kg) ??05/12/2024:?-0.4 ??05/10/2024:?0.0 ??05/08/2024:?0.1 UF?Rate?(mL/kg/hr) ??05/12/2024:?7.3 ??05/10/2024:?10.5 ??05/08/2024:?7.4 ADEQUACY?ASSESSMENT spKt/V,?URR ??04/17/2024:?1.57,?74.0 ??03/13/2024:?1.63,?74.0 ??02/14/2024:?1.52,?71.0 ACCESS?ASSESSMENT ??Access?Type:?CVCatheter ??Access?SubType:?Tunneled ??Access?Status:?Active?(In?Use)?-?12/01/2021 ??Access?Location:?Chest ??Placed:?09/29/2021 ANEMIA?ASSESSMENT HGB ??05/08/2024:?11.2 ??05/01/2024:?11.3 ??04/24/2024:?11.9 ?? Ferritin ??04/17/2024:?778.0 ??03/13/2024:?702.0 ??02/14/2024:?681.0 BMM?ASSESSMENT PTH,?Intact ??04/17/2024:?297.0 ??03/13/2024:?153.0 ??02/14/2024:?400.0 ?? Calcium,?Phosphorus ??04/17/2024:?8.8,?4.4 ??03/20/2024:?9.2,?- ??03/13/2024:?9.7,?4.0 Vitamin?D?(Calcitriol)?Oral?(mcg) ??05/12/2024:?0.75 ??05/10/2024:?0.75 ??05/08/2024:?0.75 NUTRITION?ASSESSMENT Potassium ??05/08/2024:?4.9 ??05/01/2024:?5.3 ??04/24/2024:?5.3 ?? eNPCR ??04/17/2024:?0.89 ??03/13/2024:?0.92 ??02/14/2024:?0.83 DIAGNOSIS Chief?Complaint:?N18.6?End?stage?renal?disease Patient?data?updated?05/15/2024?at?2:04?PM Signed?By:?Lyndsey,?Luna,?WILTON WEAVER??on?05/15/2024?2:04:59?PM END OF DOCUMENT
--- OUTSIDE RECORDS SUMMARY | 2024-05-23 13:13 | XMS_ITS | Encounter Summary ---
Author Organization [facility] [place] [address] Care Team Providers Care Ct Manager Name Role Phone Ileana Azevedo APRN Primary Care Provider [phone] Encounter Details Date Type Department Care Team (Late st Contact Info) Description 02/02/2024 Orders Only [place] [address] Lalitha Mcfarlane, [facility] Social History Tobacco Use Types [...] on filedocumented in this encounter Care Teams Ct Manager Relationship Specialty Start Date End Date Ileana Azevedo APRN [address] [place] [address] PCP - General Family Medicine 10/21/22 documented as of this encounter
--- OUTSIDE RECORDS SUMMARY | 2024-05-23 13:13 | XMS_ITS | Encounter Summary ---
[place] [address] Care Team Providers Care Railroad Baggage Porter Name Role Phone Roberto CarlosIleana meléndez CATRACHITO Primary Care Provider [phone] Reason for Visit * Reason Comments Medication Refill Encounter Details Date Type Department Care Team (Late st Contact Info) Description 11/09/2023 Refill Nephrology [place] [address] Luna Solorio [facility] [place] [address] Social History Tobacco Use Types Packs/Day Years Used Date Smoking Tobacco: Former Cigarettes 0.3 1.5 1 08/05/1998 - 12/03/2000 Smokeless Tobacco: Former Quit: 04/14/2001 Alcohol Use Standard Drinks/Week Comments No 0 (1 standard drink = 0.6 oz pur e alcohol) [facility] Inpatient Questions Answer Date [...] on filedocumented in this encounter Care Teams Railroad Baggage Porter Relationship Specialty Start Date End Date Ileana Azevedo APRN [address] [place] [address] PCP - General Family Medicine 10/21/22 documented as of this encounter
--- OUTSIDE RECORDS SUMMARY | 2024-05-23 13:13 | XMS_ITS | Encounter Summary ---
Author Organization [facility] Address [facility] [place] [address] Care Team Providers Care Gel Coat Sprayer Name Role Phone Ileana Azevedo CATRACHITO Primary Care Provider [phone] Reason for Visit * Reason Comments Vascular Access Problem * Auth/Cert (Routine) Specialty Diagnoses / Procedures Referred By Contmike t Referred To Contact Diagnoses Hyperkalemia [place] [address] [facility] Referral ID Status Reason Start Date Expiration Date Visits Re quested Visits Authorized [id number] 1 1 Encounter Details Date Type Department Care Team (Latest Contact Info) Description 12/24/2022 11:01 AM EDT - 12/25/2022 2:59 PM EDT Hospital Encounter Surgical Unit Level 2 [place] [address] [place] [address] [place] [address] ESRD on dialysis; Hyperkalemia; Complication of vascular dialysis catheter, unspecified complication, initial encounter Discharge Disposition: Detention Care [facility] Social History Tobacco Use Types Packs/Day Years [...] Adama Ram Patient Age: 62 y.o. Language: Singaporean Race: White Ethnicity: Not nor Admit date: [...] please contact your inpatient physician through the [facility] . Issues afterhours and on weekends will [...] Left renal mass Weight loss Prophylactic immunotherapy parts lister current use of immunosuppressive drug H/O kidney [...] dose was later confirmed with the patient's HALFWAY and noted be to 100mg daily. This [...] please contact the health child day care teacher that requested your imaging first. Pending Studies and Lab Data: None Discharge Conditions Discharged in stable condition Discharge to: [facility] Updated Allergies/ADRs: Allergies Allergen Reactions Benazepril Hcl [...] please contact your inpatient physician through the [facility] . Issues afterhours and on weekends will [...] your doctor if you can take an jzhz-hew-jkkxnmb medicine. Do not take two or more [...] Where can you learn more? Scan the Hermes IQ code or Visit our Dizzywood information library at [email or web address]/ You can also view health information on [employer], your personal patient account. Log in or sign uptoday. Enter D346 in the search box to learn more about Tunneled Catheter: What to Expect at Home. Current as of: June 29, 2022 Content Version: 13.6 ?? Kaseya. Care instructions adapted under license by [facility]. If you have questions about a medical condition or this instruction, always ask your healthcare professional. Kaseya disclaims any warranty or liability for your [...] your doctor if you can take an xfjk-wdd-ymnjiam medicine. Do not take two or more [...] Where can you learn more? Scan the Hermes IQ code or Visit our Dizzywood information library at [email or web address]/ You can also view health information on [employer], your personal patient account. Log in or sign uptoday. Enter D346 in the search box to learn more about Tunneled Catheter: What to Expect at Home. Current as of: June 29, 2022 Content Version: 13.6 ?? Kaseya. Care instructions adapted under license by [facility]. If you have questions about a medical condition or this instruction, always ask your healthcare professional. Kaseya disclaims any warranty or liability for your [...] please contact your inpatient physician through the [facility] . Issues afterhours and on weekends will [...] 12/25/2022 2:59 PM EDT Office of Care Management/Speech Correction Consultant Patient Name: Adama Ram : 1960 Patient has been offered a [facility] bed at [facility] from [facility] confirmed a home delivery driver provided by newsroom intern, Bill, will arrive to pick patient up at discharge from the [facility] entrance at 3pm (1500) en route to [facility] No MD to MD report necessary Please call Nursing Report to , ask for service crew supervisor. Info to accompany patient: Copies of Medication Administration Records and IV sheets for past 10 days. Plan: Speech Correction Consultant will be available to the patient and Ed Teacher-RN and/or Social Workerfor further assistance. Patient will be discharged to: [facility] Basic Information Address: [address] [place] [address] Aldo Black * Nadja Lira - 12/25/2022 11:03 AM EDT Discharge Transportation confirmed: Spoke with Shayne from [facility] who confirmed a home delivery driver provided by newsroom intern, Nayan will arrive to pick patient up at discharge from the Pav[facility] entrance at 3pm (1500) en route to [facility] (address on file). Bedside nurse notified via eD chat. [employer] * Naz Colunga APRN - 12/25/2022 10:43 [...] Left renal mass Weight loss Prophylactic immunotherapy [facility] current use of immunosuppressive drug H/O kidney [...] spent >30 minutes (Day of Discharge Code 92717) involved in the final examination of the [...] IJ catheter. I will update his outpatient assistant press operator offset. Blood pressure is relatively low during admission [...] of : 1960 AGE: 62 y.o. Address: [address] [address] Phone: [phone] (home) Mobile: Telephone Information: Referring Provider: No [...] parts of face C44.329 Prophylactic immunotherapy Z29.8 parts lister current use of immunosuppressive drug Z79.899 H/O [...] HD Tunneled line exchange / angioplasty [place] [facility] only, tolerated well 09/25/21 RLE fistulagram [...] Left renal mass Weight loss Prophylactic immunotherapy [facility] current use of immunosuppressive drug H/O kidney [...] AV Fistula Evaluations 11/30/2019 Sabrina Velez MD [facility] RAD IR DIALYSIS ACCESS - AV FISTULA EVALUATIONS 01/07/2021 IR Dialysis Access - AV Fistula Evaluations 01/07/2021 Sabrina Velez MD [facility] RAD IR DIALYSIS ACCESS - AV FISTULA EVALUATIONS 09/25/2021 IR Dialysis Access - AV Fistula Evaluations 09/25/2021 Kanu Apple MD [facility] RAD IR DIALYSIS ACCESS - AV FISTULA EVALUATIONS 10/10/2021 IR Dialysis Access - AV Fistula Evaluations 10/10/2021 Walt Lin MD [facility] RAD IR DIALYSIS ACCESS - AV FISTULA EVALUATIONS 11/05/2021 IR Dialysis Access - AV Fistula Evaluations 11/05/2021 Walt Lin MD [facility] RAD IR DIALYSIS ACCESS - TUNNELED LINE 07/30/2018 IR Dialysis Access - Tunneled Line 07/30/2018 Walt Lin MD [facility] RAD IR DIALYSIS ACCESS - TUNNELED LINE 08/30/2018 IR Dialysis Access - Tunneled Line 08/30/2018 Erwin Simon APRN [facility] RAD IR DIALYSIS ACCESS - TUNNELED LINE 12/27/2020 IR Dialysis Access - Tunneled Line 12/27/2020 Zechariah, Kanu Grubbs MD [facility] RAD IR DIALYSIS ACCESS - TUNNELED LINE 01/23/2021 IR Dialysis Access - Tunneled Line 01/23/2021 Zechariah, Kanu Grubbs MD [facility] RAD IR DIALYSIS ACCESS - TUNNELED LINE 03/20/2021 IR Dialysis Access - Tunneled Line 03/20/2021 Tab Harmon MD [facility] RAD IR DIALYSIS ACCESS - TUNNELED LINE 09/29/2021 IR Dialysis Access - Tunneled Line 09/29/2021 Tab Harmon MD [facility] RAD IR DIALYSIS ACCESS - TUNNELED LINE 09/30/2022 IR Dialysis Access - Tunneled Line 09/30/2022 Sabrina Velez MD [facility] RAD IR DIALYSIS ACCESS - TUNNELED LINE 10/14/2022 IR Dialysis Access - Tunneled Line 10/14/2022 Sabrina Velez MD [facility] RAD IR DIALYSIS ACCESS - TUNNELED LINE 12/24/2022 IR Dialysis Access - Tunneled Line 12/24/2022 Carroll Diaz MD [facility] RAD IR LINE OR TUBE REMOVAL IN RECOVERY ROOM 07/31/2021 IR Line or Tube Removal in Recovery Room 07/31/2021 [facility] RAD KIDNEY TRANSPLANT KIDNEY TRANSPLANT / RECIPIENT/LT Procedure Date: 11/26/2002 PRO ANASTOMOSIS, AV, ANY SITE Right 05/22/2021 AV FISTULA CREATION, DIRECT HEMODIALYSIS, ANY SITE, EG MADYSON FISTULA LOWER EXTREMITY (WRVU 11.9) performed by Odalis Elias MD at [facility] MAIN OR PRO CREAT AV FISTULA, NON-AUTOGENOUS GRAFT Right 12/13/2018 PLACEMENT, AV HEMODIALYSIS GRAFT, SYNTHETIC GRAFT, UPPER EXTREMITY (WRVU 12.03) performed by Mary Garay MD at [facility] MAIN OR PRO CREAT AV FISTULA, NON-AUTOGENOUS GRAFT Left 04/03/2021 PLACEMENT, AV HEMODIALYSIS GRAFT, SYNTHETIC GRAFT, UPPER EXTREMITY (WRVU 12.03) performed by Odalis Elias MD at [facility] MAIN OR PRO DEBRIDEMENT SUBCUTANEOUS TISSUE 20 SQCM/< Left 02/20/2016 DEBRIDEMENT SKIN AND SUBCU, HEAD/NECK performed by Miguel Angel Moreno MD at [facility] MAIN OR PRO DECOMPRESS FOREARM, BRACH ART EXPLOR Left 04/06/2018 FASCIOTOMY, FOREARM, WITH BRACHIAL ARTERY EXPLORATION (WRVU 8.41) performed by Lida Peter, Laureent [facility] MAIN OR PRO DIRECT REPAIR RUPTURED ANEURYSM, AXILLO-BRACHIAL ARM INCIS Left 04/06/2018 @REPAIR, RUPTURED AXILLARY OR BRACHIAL ARTERY ANEURYSM BY ARM INCISION (WRVU *) performed by Lida Peter MD at [facility] MAIN OR PRO EXC PAROTD, TOTAL, UNILAT RAD NECK Left 02/05/2016 @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, TOTAL, WITH UNILATERAL RADICAL NECK DISSECTION performed by Miguel Angel Moreno MD at [facility] MAIN OR PRO EXC SKIN MALIG 3.1-4CM FACE, FACIAL Left 02/05/2016 EXC MALIGNANT LESION, 3.1 TO 4.0CM, FACE performed by Miguel Angel Moreno MD at [facility] MAIN OR PRO EXC SKIN MALIG >4CM TRUNK, ARM, LEG 04/19/2012 EXC MALIGNANT LESION, MICHAEL > 4.0CM, TRUNK performed by SABRINA SANCHEZ at [facility] MAIN OR PRO LAP, RADICAL NEPHRECTOMY Left 05/31/2017 @LAPAROSCOPY, RADICAL NEPHRECTOMY (WRVU 25.06) performed by Jax Mills MD at [facility] MAIN OR PRO LIGATN ANGIOACCESS AV FISTULA Left 04/19/2018 LIGATION OR BANDING OF HEMODIALYSIS FISTULA OR GRAFT UPPER EXTREMITY (WRVU 6.25) performed by Odalis Elias MD at [facility] MAIN OR PRO NEGATIVE PRESSURE WOUND THERAPY, LESS THAN OR EQUAL TO 50 SQCM Left 04/19/2018 DRESSING CHANGE (VAC ASSISTED) UP TO 50SQ.CM (WRVU 0.55) [facility] PRO PHLEB VEINS - EXTREM - TO 20 Right 05/22/2021 STAB PHLEBECTOMY LISBET VEINS 1 EXTREMITY 10-20 INCISIONS (WRVU 7.71) performed by Odalis Elias MD at [facility] MAIN OR PRO REBL VES GRAFT, UP EXTREM Left 04/06/2018 REPAIR BLOOD VESSEL WITH GRAFT OTHER THAN VEIN, UPPER EXTREMITY (WRVU 15.83) performed by Lida Peter MD at [facility] MAIN OR PRO RELIEVE PRESSURE ON NERVE(S) Left 04/06/2018 (MSURG) CARPAL TUNNEL (WRVU 4.82) performed by Silviano Sparks MD at [facility] MAIN OR PRO REPAIR INTERMEDIATE S/A/T/E 2.6-7.5 CM 04/19/2012 REPAIR INTERMEDIATE WOUND, (NO HANDS OR FEET) 2.6 TO 7.5CM, UPPER EXTREMITY performed by SABRINA SANCHEZ at [facility] MAIN OR PRO REPAIR INTERMEDIATE S/A/T/E > 30.0 CM Left 04/14/2018 REPAIR INTERMEDIATE WOUND, (NO HANDS OR FEET) >30.0CM, UPPER EXTREMITY (WRVU 5) performed by Yimi Easton MD at [facility] MAIN OR [facility] REVISE MEDIAN N/CARPAL TUNNEL SURG Left 04/06/2018 MEDIAN NERVE DECOMPRESSION (CARPAL TUNNEL RELEASE) (WRVU 4.97) performed by Lida Peter MD [facility] MAIN OR PRO SPLIT GRFT TRUNK, ARM, LEG <100SQCM Left 04/26/2018 SPLIT THICK SKIN GRAFT,100 SQ CM OR LESS, ARMS (WRVU 9.9) performed by Silviano Sparks MD at [facility] MAIN OR PRO SPLIT GRFT, HEAD, FAC, HAND, FEET <100SQCM N/A 02/20/2016 SPLIT THICKNESS SKIN SPLIT GRAFT,100SQ CM OR LESS, NECK performed by Miguel Angel Moreno MD at [facility] MAIN OR PRO SPLIT GRFT, TRUNK, ARM, LEG EA 100SQCM N/A 04/26/2018 EA.ADDITIONAL 100SQ.CM STSG (WRVU 1.72) performed by Silviano Sparks MD at [facility] MAIN OR PRO UNLISTED PROCEDURE VASCULAR SURGERY Left 11/20/2015 LIGATION\REPAIR AV FISTULA performed by Camilo Ireland MD at [facility] MAIN OR PRO UNLISTED PROCEDURE VASCULAR SURGERY Left 11/20/2015 EXCISION VEIN FROM HAND performed by Camilo Ireland MD at [facility] MAIN OR PRO UPPER GI ENDOSCOPY, BIOPSY N/A 05/13/2017 EGD WITH BIOPSY (WRVU 2.49) performed by Aditya Barrera MD at [facility] ENDOSCOPY US RENAL TRANSPLANT BIOPSY 12/31/2010 US RENAL TRANSPLANT RIGHT Right 06/04/2018 US Renal Transplant Right 06/04/2018 [facility] RAD ULTRASOUND Prior To Admission Medications: [...] level: Not on file Occupational History 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 Other Studies: EKG - Sinus bradycardia Otherwise [...] likely discharge following. Will repeat BMP around 4049-0966. If potassium remains significantly elevated, plan to contact nephrology for engagement regarding more urgent/emergent dialysis. 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 T,, #Hyperkalemia -S/p IR tunneled cathter today 12/24 -Nephrology engaged-plan of iHD in AM [place] [facility] [place] last session 12/22 -S/p 5 units insulin [...] parts of face C44.329 Prophylactic immunotherapy Z29.8 parts lister current use of immunosuppressive drug Z79.899 H/O [...] AV Fistula Evaluations 11/30/2019 Sabrina Velez MD [facility] RAD IR DIALYSIS ACCESS - AV FISTULA EVALUATIONS 01/07/2021 IR Dialysis Access - AV Fistula Evaluations 01/07/2021 Sabrina Velez MD [facility] RAD IR DIALYSIS ACCESS - AV FISTULA EVALUATIONS 09/25/2021 IR Dialysis Access - AV Fistula Evaluations 09/25/2021 Kanu Apple MD [facility] RAD IR DIALYSIS ACCESS - AV FISTULA EVALUATIONS 10/10/2021 IR Dialysis Access - AV Fistula Evaluations 10/10/2021 Walt Lin MD [facility] RAD IR DIALYSIS ACCESS - AV FISTULA EVALUATIONS 11/05/2021 IR Dialysis Access - AV Fistula Evaluations 11/05/2021 Walt Lin MD [facility] RAD IR DIALYSIS ACCESS - TUNNELED LINE 07/30/2018 IR Dialysis Access - Tunneled Line 07/30/2018 Walt Lin MD [facility] RAD IR DIALYSIS ACCESS - TUNNELED LINE 08/30/2018 IR Dialysis Access - Tunneled Line 08/30/2018 Erwin Simon, CLOUD ADMINISTRATOR [facility] RAD IR DIALYSIS ACCESS - TUNNELED LINE 12/27/2020 IR Dialysis Access - Tunneled Line 12/27/2020 Kanu Apple MD [facility] RAD IR DIALYSIS ACCESS - TUNNELED LINE 01/23/2021 IR Dialysis Access - Tunneled Line 01/23/2021 Kanu Apple MD [facility] RAD IR DIALYSIS ACCESS - TUNNELED LINE 03/20/2021 IR Dialysis Access - Tunneled Line 03/20/2021 Tab Harmon MD [facility] RAD IR DIALYSIS ACCESS - TUNNELED LINE 09/29/2021 IR Dialysis Access - Tunneled Line 09/29/2021 Tab Harmon MD [facility] RAD IR DIALYSIS ACCESS - TUNNELED LINE 09/30/2022 IR Dialysis Access - Tunneled Line 09/30/2022 Sabrina Velez MD [facility] RAD IR DIALYSIS ACCESS - TUNNELED LINE 10/14/2022 IR Dialysis Access - Tunneled Line 10/14/2022 Sabrina Velez MD [facility] RAD IR LINE OR TUBE REMOVAL IN RECOVERY ROOM 07/31/2021 IR Line or Tube Removal in Recovery Room 07/31/2021 [facility] RAD KIDNEY TRANSPLANT KIDNEY TRANSPLANT / RECIPIENT/LT Procedure Date: 11/26/2002 PRO ANASTOMOSIS, AV, ANY SITE Right 05/22/2021 AV FISTULA CREATION, DIRECT HEMODIALYSIS, ANY SITE, EG MADYSON FISTULA LOWER EXTREMITY (WRVU 11.9) performed by Odalis Elias MD at [facility] MAIN OR PRO CREAT AV FISTULA, NON-AUTOGENOUS GRAFT Right 12/13/2018 PLACEMENT, AV HEMODIALYSIS GRAFT, SYNTHETIC GRAFT, UPPER EXTREMITY (WRVU 12.03) performed by Mary Garay MD at [facility] MAIN OR PRO CREAT AV FISTULA, NON-AUTOGENOUS GRAFT Left 04/03/2021 PLACEMENT, AV HEMODIALYSIS GRAFT, SYNTHETIC GRAFT, UPPER EXTREMITY (WRVU 12.03) performed by Odalis Elias MD at [facility] MAIN OR PRO DEBRIDEMENT SUBCUTANEOUS TISSUE 20 SQCM/< Left 02/20/2016 DEBRIDEMENT SKIN AND SUBCU, HEAD/NECK performed by Miguel Angel Moreno MD at [facility] MAIN OR PRO DECOMPRESS FOREARM, BRACH ART EXPLOR Left 04/06/2018 FASCIOTOMY, FOREARM, WITH BRACHIAL ARTERY EXPLORATION (WRVU 8.41) performed by Lida Peter MDat [facility] MAIN OR PRO DIRECT REPAIR RUPTURED ANEURYSM, AXILLO-BRACHIAL ARM INCIS Left 04/06/2018 @REPAIR, RUPTURED AXILLARY OR BRACHIAL ARTERY ANEURYSM BY ARM INCISION (WRVU *) performed by Lida Peter MD at [facility] MAIN OR PRO EXC PAROTD, TOTAL, UNILAT RAD NECK Left 02/05/2016 @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, TOTAL, WITH UNILATERAL RADICAL NECK DISSECTION performed by Miguel Angel Moreno MD at [facility] MAIN OR [facility] EXC SKIN MALIG 3.1-4CM FACE, FACIAL Left 02/05/2016 EXC MALIGNANT LESION, 3.1 TO 4.0CM, FACE performed by Miguel Angel Moreno MD at [facility] MAIN OR PRO EXC SKIN MALIG >4CM TRUNK, ARM, LEG 04/19/2012 EXC MALIGNANT LESION, MICHAEL > 4.0CM, TRUNK performed by SABRINA SANCHEZ at [facility] MAIN OR PRO LAP, RADICAL NEPHRECTOMY Left 05/31/2017 @LAPAROSCOPY, RADICAL NEPHRECTOMY (WRVU 25.06) performed by Jax Mills MD at [facility] OR [facility] LIGATN ANGIOACCESS AV FISTULA Left 04/19/2018 LIGATION OR BANDING OF HEMODIALYSIS FISTULA OR GRAFT UPPER EXTREMITY (WRVU 6.25) performed by Odalis Elias MD at [facility] OR [facility] NEGATIVE PRESSURE WOUND THERAPY, LESS THAN OR EQUAL TO 50 SQCM Left 04/19/2018 DRESSING CHANGE (VAC ASSISTED) UP TO 50SQ.CM (WRVU 0.55) performed by Odalis Elias MD [facility] MAIN OR [facility] PHLEB VEINS - EXTREM - TO 20 Right 05/22/2021 STAB PHLEBECTOMY LISBET VEINS 1 EXTREMITY 10-20 INCISIONS (WRVU 7.71) performed by Odalis Elias MD at [facility] OR [facility] REBL VES GRAFT, UP EXTREM Left 04/06/2018 REPAIR BLOOD VESSEL WITH GRAFT OTHER THAN VEIN, UPPER EXTREMITY (WRVU 15.83) performed by Lida Peter MD at [facility] OR [facility] RELIEVE PRESSURE ON NERVE(S) Left 04/06/2018 (MSURG) CARPAL TUNNEL (WRVU 4.82) performed by Silviano Sparks MD at [facility] MAIN OR PRO REPAIR INTERMEDIATE S/A/T/E 2.6-7.5 CM 04/19/2012 REPAIR INTERMEDIATE WOUND, (NO HANDS OR FEET) 2.6 TO 7.5CM, UPPER EXTREMITY performed by SABRINA SANCHEZ at [facility] MAIN OR PRO REPAIR INTERMEDIATE S/A/T/E > 30.0 CM Left 04/14/2018 REPAIR INTERMEDIATE WOUND, (NO HANDS OR FEET) >30.0CM, UPPER EXTREMITY (WRVU 5) performed by Yimi Easton MD at [facility] OR [facility] REVISE MEDIAN N/CARPAL TUNNEL SURG Left 04/06/2018 MEDIAN NERVE DECOMPRESSION (CARPAL TUNNEL RELEASE) (WRVU 4.97) performed by Lida Peter MD [facility] MAIN OR PRO SPLIT GRFT TRUNK, ARM, LEG <100SQCM Left 04/26/2018 SPLIT THICK SKIN GRAFT,100 SQ CM OR LESS, ARMS (WRVU 9.9) performed by Silviano Sparks MD at [facility] MAIN OR PRO SPLIT GRFT, HEAD, FAC, HAND, FEET <100SQCM N/A 02/20/2016 SPLIT THICKNESS SKIN SPLIT GRAFT,100SQ CM OR LESS, NECK performed by Miguel Angel Moreno MD at [facility] MAIN OR PRO SPLIT GRFT, TRUNK, ARM, LEG EA 100SQCM N/A 04/26/2018 EA.ADDITIONAL 100SQ.CM STSG (WRVU 1.72) performed by Silviano Sparks MD at [facility] MAIN OR PRO UNLISTED PROCEDURE VASCULAR SURGERY Left 11/20/2015 LIGATION\REPAIR AV FISTULA performed by Camilo Ireland MD at [facility] MAIN OR PRO UNLISTED PROCEDURE VASCULAR SURGERY Left 11/20/2015 EXCISION VEIN FROM HAND performed by Camilo Ireland MD at [facility] MAIN OR PRO UPPER GI ENDOSCOPY, BIOPSY N/A 05/13/2017 EGD WITH BIOPSY (WRVU 2.49) performed by Aditya Barrera MD at [facility] ENDOSCOPY US RENAL TRANSPLANT BIOPSY 12/31/2010 US RENAL TRANSPLANT RIGHT Right 06/04/2018 US Renal Transplant Right 06/04/2018 [facility] RAD ULTRASOUND Medications: No current facility-administered [...] level: Not on file Occupational History 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 Course as of 12/24/22 1644 [facility] Dec 24, 2022 1153 Indication for EKG [...] dialysis and TBI with cognitive disability from nursing home facility via EMS after accidentally dislodging his [...] software and may inherently contain errors in cloud administrator. Some sounds may be transcribed incorrectly by [...] Patient is medically ready for discharge to [facility] . Needs for Transition of Care: Plan for discharge is: Independent Living Facility Outpatient Agency/Support Group Needs: Hemodialysis Agency Referrals & Follow-up Care: Called placed to [facility] and [facility] and made them aware of patient's 12/25/2022 [...] are in agreement with plan. Nini [facility] [phone] * Initial Assessments - Nini Maza RN [...] COVID test: Lab Results Component Value Date [id number] Not Detected 05/22/2021 Past medical History: Past [...] Coping/Education/Information Needs: Patient currently Lives at the [facility] Current Functional Ability: Independent, Assistive Equipment [...] cane - straight Home Address confirmed as: [address] [address] Social & Family Supports: All names listed below confirmed with patient as current and correct Extended Emergency Contact Information Primary Emergency Contact: Leanna, Lucas Address: [address] [place] [address] [place], [place] [id number] [place] [address] Mobile Relation: Sibling Secondary Emergency Contact: Yenifer Frausto Address: [address] [place] [address] [place] Mobile Relation: Aunt/Uncle Current Care Provided by: self Provides Primary Care For: no one Caregiver if needed: other (see comments) (Staff at [facility]) Quality of Family relationships: helpful, involved, supportive [...] Yes ; Prescription Coverage: Yes Preferred Pharmacy: [id number] - [place], [place] - [address] [place] [address] AT [facility] [address] [address] [facility] - [place], [place] - [address] [place] [address] [address] [facility] [address] Status: Patient is a : No Primary Care Provider confirmed: Ileana Azevedo, CATRACHITO [phone] Patient/Caregiver Goals of Treatment: Return to [facility] Potential Needs for Transition of Care: none Agency Referrals: [address] [address] Resumption of Hemodialysis at: [address] [address] Patient is a current client on: Wednesday, , Wednesday at 1100. Transportation to HD is provided by: [facility] Note routed to a Speech Correction Consultant who will communicate referrals to facilities and provide any required information. Transportation: other (see comments) (Needs a ride with [facility]) Transportation Anticipated: other (see comments) ([facility]) Concerns to be Addressed: no discharge needs identified Assessment: Patient is admitted to med service for hyperkalemia Plan: Return to [facility] when MRVíctor Referral inf for resumption [...] with transition of care planning. Nini Maza [facility] [phone] * Plan of Care - Sue Ventura [...] upper dentures/plates that were left in the [facility] he lives at. 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, denies chest pain/sob, gcs-15, warm/pink/dry, ambulated to [...] POCT Glucose (12/25/2022 11:18 AM EDT) Pathologist [facility] Glucose, POC 109 65 - 199 mg/dL [facility] Comment: Supplemental ranges: <140 mg/dL before meals <180 mg/dL all other times of the day Blood 12/25/2022 11:1 8 AM EDT 12/25/2022 11:18 AM EDT Benoit Izquierdo MD POINT OF CARE TEST O RDERABLES [facility] [place] [address] * Differential, Automated (12/25/2022 1:06 AM EDT) Neutrophil % 68.3 % [facility] Neutrophil Absolute 3.66 1.70 - 6.10 x10(3)/mcL [facility] Lymph % 20.7 % [facility] Lymphocytes Abs 1.1 0.9 - 3.2 x10(3)/[facility] Monocyte % 7.6 % [facility] Monocyte Abs 0.4 0.3 - 0.9 x10(3)/[facility] Eos % 2.6 % [facility] Eosinophils Abs 0.1 0.0 - 0.4 x10(3)/[facility] Basophil % 0.6 % [facility] Baso Absolute 0.0 0.0 - 0.1 x10(3)/[facility] Immature Gran % 0.20 % [facility] Comment: Immature granulocytes(IG's)percentage and absolute count will include metamyelocytes, myelocytes, and promyelocytes. Blood smears from CBCs yielding IG's will be scanned manually for concordance. If this scan disagrees with the automated IG or if promyelocytes are noted, a manual differential will be performed. Immature Gran Absolute 0.01 0.00 - 0.04 x10(3)/[facility] Blood 12/25/2022 1:06 AM EDT 12/25/2022 1:14 AM EDT Narrative Resulting Agency Comment Spec In Lab Naz Colunga APRN HEMATOLOGY ORDERABLE S [facility] [place] [address] * (ABNORMAL) Hemogram (12/25/2022 1:06 AM EDT) White Blood Cell 5.4 4.0 - 9.5 x10(3)/mc L [facility] Red Blood Cell 3.46(L) 4.58 - 5.54 x10(6)/mc L [facility] Hemoglobin 11.1(L) 13.7 - 16.5 g/dL [facility] Hematocrit 33.5(L) 40.5 - 48.5 % [facility] Mean Cell Volume 96.8(H) 82.9 - 93.1 fL [facility] Mean Cell Hemoglobin 32.1 27.5 - 32.1 pg [facility] Mean Cell Hemoglobin Concentration 33.1 32.0 - 35.7 g/dL [facility] Platelet 167 145 - 357 x10(3)/mc L [facility] RDW Standard Deviation 44.0 36.0 - 45.0 fL [facility] RDW coefficient of variation 12.5 11.4 - 13.8 % [facility] Mean Platelet Volume 8.9 7.6 - 12.9 fL [facility] NRBC% auto 0.0 % [facility] NRBC Absolute 0.000 0.000 - 0.000 x10(3)/mc L [facility] Blood 12/25/2022 1:06 AM EDT 12/25/2022 1:14 AM EDT Narrative Resulting Agency Comment Spec In Lab Naz Colunga CLOUD ADMINISTRATOR HEMATOLOGY ORDERABLE S [facility] [place] [address] * (ABNORMAL) Basic Metabolic Panel (non-fasting) (12/25/2022 1:06 AM EDT) Glucose 116 65 - 199 mg/dL [facility] Comment:Diabetes: >=200 mg/d L plus symptoms Blood Urea Nitrogen 51(H) 10 - 20 mg/dL [facility] Creatinine 9.99(H) 0.80 - 1.50 mg/dL [facility] Sodium 137 135 - 145 mmol/L [facility] Potassium 4.9 3.5 - 5.0 mmol/L [facility] Comment: Please note: ??Patients with WBC >100,000 may have falsely elevated Potassium levels. ??For accurate Potassium quantification in these patients send serum separator tube (gold top) for subsequent determinations. ??Contact the Clinical Chemistry Laboratory if there are any questions. Chloride 95(L) 98 - 107 mmol/L [facility] Carbon Dioxide 26 22 - 31 mmol/L [facility] Anion Gap 16(H) 5 - 15 mmol/L [facility] Calcium 9.1 8.5 - 10.5 mg/dL [facility] Est Glomerular Filtration Rate 5(L) >=60 mL/min/1. 73 m?? [facility] Comment: This patient's estimated [...] In Lab Naz Colunga APRN CHEMISTRY ORDERABLES [facility] [place] [address] * (ABNORMAL) Basic Metabolic Panel (non-fasting) (12/24/2022 9:50 PM EDT) Glucose 129 65 - 199 mg/dL [facility] Comment:Diabetes: >=200 mg/d L plus symptoms Blood Urea Nitrogen 50(H) 10 - 20 mg/dL [facility] Creatinine 9.72(H) 0.80 - 1.50 mg/dL [facility] Sodium 137 135 - 145 mmol/L [facility] Potassium 4.9 3.5 - 5.0 mmol/L [facility] Comment: result rechecked-imm Please note: ??Patients with WBC >100,000 may have falsely elevated Potassium levels. ??For accurate Potassium quantification in these patients send serum separator tube (gold top) for subsequent determinations. ??Contact the Clinical Chemistry Laboratory if there are any questions. Chloride 95(L) 98 - 107 mmol/L [facility] Carbon Dioxide 25 22 - 31 mmol/L [facility] Anion Gap 17(H) 5 - 15 mmol/L [facility] Calcium 9.3 8.5 - 10.5 mg/dL [facility] Est Glomerular Filtration Rate 6(L) >=60 mL/min/1. 73 m?? [facility] Comment: This patient's estimated [...] Colunga APRN CHEMISTRY ORDERABLES Performing Organization Address City/[facility] Co de Phone Number [facility] [place] [address] * POCT Glucose (12/24/2022 9:27 PM EDT) Glucose, POC 132 65 - 199 mg/dL [facility] Comment: Supplemental ranges: <140 mg/dL before meals <180 mg/dL all other times of the day Blood 12/24/2022 9:27 PM EDT 12/24/2022 9:27 PM EDT Krysta Joyce MD POINT OF CARE TEST O RDERABLES Performing Organization Address [facility] Co de Phone Number [facility] [place] [address] * POCT Glucose (12/24/2022 6:53 PM EDT) Glucose, POC 97 65 - 199 mg/dL [facility] Comment: Supplemental ranges: <140 mg/dL before meals <180 mg/dL all other times of the day Blood 12/24/2022 6:53 PM EDT 12/24/2022 6:53 PM EDT Krysta Joyce MD POINT OF CARE TEST O RDERABLES Performing Organization Address City/[facility]/ZIP Co de Phone Number [facility] [place] [address] * IR Dialysis Access - Tunneled Line [...] cava. ??The tract was dilated using a 16-Polish Yarely dilator under fluoroscopic guidance. ??The dilator [...] ORDERABLES * Phosphorus (12/24/2022 3:00 PM EDT) [facility] Phosphorus 3.4 2.5 - 4.5 mg/dL [facility] Blood Venous Draw / Unknown 12/24/2022 3:00 PM EDT 12/24/2022 3:43 PM EDT Narrative Resulting Agency Comment Spec In Lab Real Clark CLOUD ADMINISTRATOR CHEMISTRY ORDERABLES [facility] [place] [address] * Differential, Automated (12/24/2022 3:00 PM EDT) [facility] Neutrophil % 62.6 % [facility] Neutrophil Absolute 2.88 1.70 - 6.10 x10(3)/[facility] Lymph % 25.2 % [facility] Lymphocytes Abs 1.2 0.9 - 3.2 x10(3)/mcL [facility] Monocyte % 8.7 % [facility] Monocyte Abs 0.4 0.3 - 0.9 x10(3)/[facility] Eos % 2.6 % [facility] Eosinophils Abs 0.1 0.0 - 0.4 x10(3)/[facility] Basophil % 0.7 % [facility] Baso Absolute 0.0 0.0 - 0.1 x10(3)/[facility] Immature Gran % 0.20 % [facility] Comment: Immature granulocytes(IG's)percentage and absolute count will include metamyelocytes, myelocytes, and promyelocytes. Blood smears from CBCs yielding IG's will be scanned manually for concordance. If this scan disagrees with the automated IG or if promyelocytes are noted, a manual differential will be performed. Immature Gran Absolute 0.01 0.00 - 0.04 x10(3)/[facility] Blood 12/24/2022 3:00 PM EDT 12/24/2022 3:30 PM EDT Narrative Resulting Agency Comment Spec In Lab Real Clark CLOUD ADMINISTRATOR HEMATOLOGY ORDERABLE S [facility] [place] [address] * (ABNORMAL) Hemogram (12/24/2022 3:00 PM EDT) White Blood Cell 4.6 4.0 - 9.5 x10(3)/mc L [facility] Red Blood Cell 3.53(L) 4.58 - 5.54 x10(6)/ L [facility] Hemoglobin 11.1(L) 13.7 - 16.5 g/dL [facility] Hematocrit 34.9(L) 40.5 - 48.5 % [facility] Mean Cell Volume 98.9(H) 82.9 - 93.1 fL [facility] Mean Cell Hemoglobin 31.4 27.5 - 32.1 pg [facility] Mean Cell Hemoglobin Concentration 31.8(L) 32.0 - 35.7 g/dL [facility] Platelet 165 145 - 357 x10(3)/ L [facility] RDW Standard Deviation 44.9 36.0 - 45.0 fL [facility] RDW coefficient of variation 12.4 11.4 - 13.8 % [facility] Mean Platelet Volume 9.0 7.6 - 12.9 fL [facility] NRBC% auto 0.0 % [facility] NRBC Absolute 0.000 0.000 - 0.000 x10(3)/mc L [facility] Blood 12/24/2022 3:00 PM EDT 12/24/2022 3:30 PM EDT Narrative Resulting Agency Comment Spec In Lab Real Clark APRN HEMATOLOGY ORDERABLE S Performing Organization Address [facility] Co de Phone Number [facility] [place] [address] * Magnesium (12/24/2022 3:00 PM EDT) Magnesium 0.99 0.69 - 1.07 mmol/L [facility] Blood 12/24/2022 3:00 PM EDT 12/24/2022 3:30 PM EDT Narrative Resulting Agency Comment Spec In Lab Real Clark APRN CHEMISTRY ORDERABLES Performing Organization Address [facility] Phone Number [facility] [place] [address] * (ABNORMAL) APTT (12/24/2022 3:00 PM EDT) Partial Thromboplastin Time 23(L) 25 - 37 sec [facility] Comment: The PTT is NOT appropriate for heparin monitoring. Use the Anti-Xa level for heparin monitoring (HEP UFH) or LMWH monitoring (HEP LMW). A PTT less than 37 seconds generally indicates adequate hemostasis. Blood 12/24/2022 3:00 PM EDT 12/24/2022 3:30 PM EDT Narrative Resulting Agency Comment Spec In Lab Real Clark APRN HEMATOLOGY ORDERABLE S Performing Organization Address [facility] Co de Phone Number [facility] [place] [address] * Prothrombin Time (12/24/2022 3:00 PM EDT) Prothrombin Time 11.2 9.4 - 12.5 sec [facility] International Normalization Ratio 1.0 [facility] Comment: An INR <2.0 indicates adequate [...] Agency Comment Spec In Lab Real Clark CLOUD ADMINISTRATOR HEMATOLOGY ORDERABLE S [facility] [place] [address] * (ABNORMAL) Comprehensive metabolic panel (non-fasting) (12/24/2022 3:00 PM EDT) Glucose 95 65 - 199 mg/dL [facility] Comment:Diabetes: >=200 mg/d L plus symptoms Blood Urea Nitrogen 47(H) 10 - 20 mg/dL [facility] Creatinine 9.43(H) 0.80 - 1.50 mg/dL [facility] Sodium 140 135 - 145 mmol/L [facility] Potassium 6.3(Criti constance) 3.5 - 5.0 mmol/L [facility] Comment: called by DIRK/read back by Real Clark/ 12/24/22 16:25 Please note: ??Patients with WBC >100,000 may have falsely elevated Potassium levels. ??For accurate Potassium quantification in these patients send serum separator tube (gold top) for subsequent determinations. ??Contact the Clinical Chemistry Laboratory if there are any questions. Chloride 98 98 - 107 mmol/L [facility] Carbon Dioxide 26 22 - 31 mmol/L [facility] Anion Gap 16(H) 5 - 15 mmol/L [facility] Calcium 9.3 8.5 - 10.5 mg/dL [facility] Protein, Total 7.2 6.1 - 8.0 g/dL [facility] Albumin 4.3 3.2 - 5.2 g/dL [facility] Aspartate Aminotransferase 15 0 - 39 unit/L [facility] Alanine Aminotransferase 12 0 - 55 unit/L [facility] Alkaline Phosphatase 120 40 - 130 unit/L [facility] Bilirubin, Total 0.4 0.2 - 1.3 mg/dL [facility] Est Glomerular Filtration Rate 6(L) >=60 mL/min/1. 73 m?? [facility] Comment: This patient's estimated GFR was [...] Clark APRN CHEMISTRY ORDERABLES Performing Organization Address City/State/[facility] Co de Phone Number [facility] [place] [address] * XR Chest One View (12/24/2022 12:04 [...] please contact the health child day care teacher that requested your imaging first. ? Narrative 12/24/2022 12:36 PM EDT EXAMINATION: XR [...] questions please contactthe health child day care teacher that requested your imaging first. Real Clark CLOUD ADMINISTRATOR IMG DX ORDERABLES * EKG 12 Lead (12/24/2022 11:35 AM EDT) Ventricular rate 52 BPM MUSE SYSTEM Atrial Rate 52 BPM MUSE SYSTEM P-R Interval 166 ms MUSE SYSTEM QRS Duration 80 ms MUSE SYSTEM Q-T Interval 446 ms MUSE SYSTEM QTC Calculated (Bezet) 414 ms MUSE SYSTEM Calculated P Beebe 66 degrees MUSE SYSTEM Calculated R Beebe 58 degrees MUSE SYSTEM Calculated T Beebe 60 degrees MUSE SYSTEM INTERPRETATION Sinus bradycardia Otherwise normal ECG When compared with ECG of 19-OCT-2022 20:05, No significant change was found Confirmed by MD Brooks Danette ([id number]) on 12/24/2022 1:23:57 PM MUSE SYSTEM 12/24/2022 [...] Warning Vesicant/Irritant Medication Patient must be on library monitor when receiving calcium; calcium can exacerbate [...] Warning Vesicant/Irritant Medication Patient must be on library monitor when receiving calcium; calcium can exacerbate [...] check documented in this encounter Care Teams Gel Coat Sprayer Relationship Specialty Start Date End Date Ileana Azevedo APRN [address] [place] [address] PCP - General Family Medicine 10/21/22 documented as of this encounter
--- OUTSIDE RECORDS SUMMARY | 2024-05-23 13:13 | XMS_ITS | Encounter Summary ---
Author Organization [facility] [place] [address] Care Team Providers Care Customer Agent Name Role Phone Ileana Azevedo CATRACHITO Primary Care Provider [phone] Encounter Details Date Type Department Care Team (Late st Contact Info) Description 09/10/2023 [place]phone [place] [id number] Tim Collins MD [facility] [place] [address] Social History Tobacco Use Types Packs/Day Years Used Date Smoking Tobacco: Former Cigarettes 0.3 1.5 1 08/05/1998 - 12/03/2000 Smokeless Tobacco: Former Quit: 04/14/2001 Alcohol Use Standard Drinks/Week Comments No 0 (1 standard drink = 0.6 oz pur e alcohol) [facility] Inpatient Questions Answer Date Recorded Does [...] - 09/11/2023 5:46 PM EST MD at [facility] requested transfer for this 63 yo M. See teleneurology consult. Tx denied due to capacity. Critical care level not needed and that was only level we had for transfer documented in this encounter Plan of Treatment Not on file documented as of this encounter Visit Diagnoses Not on filedocumented in this encounter Care Teams Customer Agent Relationship Specialty Start Date End Date Ileana Azevedo APRN [address] [place] [address] PCP - General Family Medicine 10/21/22 documented as of this encounter
--- OUTSIDE RECORDS SUMMARY | 2024-05-23 13:13 | XMS_ITS | Encounter Summary ---
Author Organization [facility] [place] [address] Care Team Providers Care Filtration Plant Mechanic Name Role Phone Ileana Azevedo APRN Primary Care Provider [phone] Encounter Details Date Type Department Care Team (Late st Contact Info) Description 12/23/2022 External Results [place] [address] Lalitha Mcfarlane, FOUNDER / CEO Social History Tobacco Use Types Packs/Day Years Used Date Smoking Tobacco: Former Cigarettes 0.3 1.5 1 08/05/1998 - 12/03/2000 Smokeless Tobacco: Former Quit: 04/14/2001 Alcohol Use Standard Drinks/Week Comments No 0 (1 standard drink = 0.6 oz pur e alcohol) [facility] Inpatient Questions Answer Date Recorded Does [...] on filedocumented in this encounter Care Teams Filtration Plant Mechanic Relationship Specialty Start Date End Date Ileana Azevedo APRN [address] [place] [address] PCP - General Family Medicine 10/21/22 documented as of this encounter
--- OUTSIDE RECORDS SUMMARY | 2024-05-23 13:13 | XMS_ITS | Encounter Summary ---
Author Organization [facility] Address [facility] [place] [address] Care Team Providers Care Roll Cutting Operator Name Role Phone Ileana Azevedo APRN Primary Care Provider [phone] Encounter Details Date Type Department Care Team (Late st Contact Info) Description 09/10/2023 6:10 PM EST Ancillary Procedure Radiology Library at [facility] [place] [address] Tim Collins MD [facility] [place] [address] Social History Tobacco Use Types Packs/Day Years [...] FILM LIBRARY O RDERABLES Performing Organization Address City/State/[facility] Co de Phone Number [place], [place] documented in this encounter Visit Diagnoses Not on filedocumented in this encounter Care Teams Roll Cutting Operator Relationship Specialty Start Date End Date Ileana Azevedo APRN [address] [place] [address] PCP - General Family Medicine 10/21/22 documented as of this encounter
--- OUTSIDE RECORDS SUMMARY | 2024-05-23 13:13 | XMS_ITS | Clinical Summary ---
Author Organization [facility] Address [facility] [place] [address] Care Team Providers Care Chief School Finance Officer Name Role Phone Ileana Azevedo APRN Primary Care Provider [phone] [phone] Allergies Active Allergy Reactions Criticality Noted Date [...] different from the original. Benjie Pryor phone [phone] Problem Noted Date Diagnosed Date Altered mental [...] 05/19/2017 Weight loss 05/11/2017 Prophylactic immunotherapy 12/07/2016 halfway current use of immunosuppressive drug 12/07/2016 H/O [...] 05/11/2017 Left leg DVT 06/06/2021 Overview (04/10/2012): Immunizations Name Administration Dates Next Due Hepatitis [...] Additional history exists Covid-19 Vaccine (1 - 2023-2 5 season) 2024 Influenza (Flu) vaccine (1 o f 1 - Influenza standard series) 03/12/2024 03/12/2016, 02/08/2015, 04/20/2013, Additional history exists Tetanus/Diphtheria/Pertussis Vaccines (4 - Td or Tdap) 11/26/2026 11/26/2016, 05/09/2015, 05/09/2015, Additional history exists Diabetes Screening (HgbA1C o r Glucose) Discontinued 12/25/2022, 12/24/2022, 12/24/2022, Additional history exists Medical Devices Implanted Type Area Quality Assurance Project Manager Device Identifier Shelf Expiration Date Model / Serial / Lot Patch,Biol,Xeno sure,.8x8cm ([id number]) - [id number] Implanted:Qty: 1 on 04/06/2018 by Lida Peter MD at [facility] IMPLANTS Arm [facility] 09/08/2023 [id number] / 0 / [id number] Graft,Acuseal,T pr,4-7llh39pd ([id number]) - [id number] Implanted:Qty: 1 on 12/13/2018 by Mary Garay MD at [facility] IMPLANTS Right: Arm [employer] 02/05/2021 [id number] / [id number] / Graft Vascular 4-1lit86ns Straight Heparin Coated Standard ([id number]) - [id number] Implanted:Qty: 1 on 04/03/2021 by Odalis Elias MD at [facility] IMPLANTS Left: Arterial [employer] [id number] 09/20/2024 [id number] / [id number] / Description:Left AV Hemodial ysis Graft Placement Graft Vascular 4-7flj44kw Straight Heparin Coated Standard ([id number]) - [id number] Implanted:Qty: 1 on 05/22/2021 by Odalis Elias MD at [facility] IMPLANTS Right: Arterial [employer] [id number] 12/10/2024 [id number] / [id number] / Description:AV fistula graft Implants-10/11/19 Implanted:Qty: 1 on 10/10/2021 by Walt Lin MD IMPLANTS Right: Leg 03/17/2024 [id number] / [id number] / Description:Viabahn 7 mm x 5 cm implanted into the right vein/graft anastamosis Stent Graft [id number] [place] ([id number]) (Autoreq)-2021 Implanted:Qty: 1 on 11/05/2021 by Walt Lin MD IMPLANTS Right: Vein [employer] - [employer] 06/15/2022 [id number] / [id number] / Description:Outflow veinous segment of AV graft per Percarpio Procedures Procedure Name Priority Date/Time Associated Diagnosis Comments BASIC METABOLIC PANEL Routine 12/25/2022 1:06 AM EDT LIPID PANEL (REFLEX DIRECT LDL) STAT 11/29/2018 9:45 AM EDT H/O kidney transplant from Last 3 Months or Most Recently Relevant to Health Maintenance Results * (ABNORMAL) Basic Metabolic Panel (non-fasting) (12/25/2022 1:06 AM EDT) Glucose 116 65 - 199 mg/dL [facility] Comment:Diabetes: >=200 mg/d L plus symptoms Blood Urea Nitrogen 51(H) 10 - 20 mg/dL [facility] Creatinine 9.99(H) 0.80 - 1.50 mg/dL [facility] Sodium 137 135 - 145 mmol/L [facility] Potassium 4.9 3.5 - 5.0 mmol/L [facility] Comment: Please note: ??Patients with WBC >100,000 may have falsely elevated Potassium levels. ??For accurate Potassium quantification in these patients send serum separator tube (gold top) for subsequent determinations. ??Contact the Clinical Chemistry Laboratory if there are any questions. Chloride 95(L) 98 - 107 mmol/L [facility] Carbon Dioxide 26 22 - 31 mmol/L [facility] Anion Gap 16(H) 5 - 15 mmol/L [facility] Calcium 9.1 8.5 - 10.5 mg/dL [facility] Est Glomerular Filtration Rate 5(L) >=60 mL/min/1. 73 m?? [facility] Comment: This patient's estimated GFR was [...] Agency Comment Spec In Lab Naz Colunga CATRACHITO CHEMISTRY ORDERABLES [facility] [place] [address] * Lipid Panel (11/29/2018 9:45 AM EDT) [facility] Cholesterol, Total 162 mg/dL [facility] Comment: Lower Risk: <200 mg/dL Average Risk: 200-239 mg/dL Higher Risk: >vq=131 mg/dL Triglyceride 103 mg/dL [facility] Comment: Average Risk/Lower Risk: <150 mg/dL Borderline High Risk: 150-199 mg/dL High Risk: 200-499 mg/dL Very High Risk: >kn=285 mg/dL HDL Cholesterol 34 mg/dL [facility] Comment: Males: ?? Higher Risk: <40 mg/dL Females: ?? HIgher Risk: <50 mg/dL LDL Cholesterol 107 mg/dL [facility] Comment: Lowest Risk: <100 mg/dL Lower Risk: 100-129 mg/dL Borderline High Risk: 130-159 mg/dL High Risk: 160-189 mg/dL Very High Risk: >xs=788 mg/dL Cholesterol/HDL Ratio 4.8 ratio [facility] Lipid Interpretation See Note [facility] Comment: Lipid management should be guided by a patient? s ASCVD risk, goals and preferences. ACC/AHA Guidelines recommend high intensity statin if clinical ASCVD or LDL greater than or equal to 190 mg/dL. http://Beyond Meaturl.com/YQL-JIU-Vqgcwgodk Adults aged 40-75 with LDL 70-189 mg/dL should have their 10 year ASCVD risk estimated with the ACC/AHA ASCVD risk auto body repair estimator http://tools.acc.org/EDLWP-Ofux-Ujtjctzbe/ Statin should be discussed if risk greater [...] CHEMISTRY ORDERAB LES [facility] [place] [address] from Last 3 Months or Most Recently Relevant to Health Maintenance Advance Directives Documents on File Type Date Recorded Patient Blue Crabber Expl anation Advance Directives and Livin g [...] Lucas Cheung Health Care Agent Care Teams Chief School Finance Officer Relationship Specialty Start Date End Date Ileana Azevedo, COOPERATIVE EXTENSION AGENT [address] [place] [address] PCP - General Family Medicine 10/21/22
--- OUTSIDE RECORDS SUMMARY | 2024-05-23 13:13 | XMS_ITS | Encounter Summary ---
[place] [address] Care Team Providers Care Branch Mechanic Name Role Phone Ileana Azevedo APRN Primary Care Provider [phone] [phone] Encounter Details Date Type Department Care Team (Late st Contact Info) Description 01/19/2024 External Results Neph[place] [address] Lalitha Mcfarlane, WAXER FLOOR Social History Tobacco Use Types Packs/Day Years [...] in this encounter Results * COVID-19 PCR ([place]) (09/10/2023) SARS-CoV-2 PCR Not Detected Influenza A PCR Not Detected Influenza B PCR Not Detected RSV PCR Not Detected Nasopharyngeal Swab SPECIMEN FROM NASOPHARYNGEAL STRUCTURE / Unknown 09/10/2023 Historical Provider MICROBIOLOGY - NERAL ORDERABLES documented in this encounter Visit Diagnoses Not on filedocumented in this encounter Care Teams Branch Mechanic Relationship Specialty Start Date End Date Ileana Azevedo, CATRACHITO [address] [place] [address] PCP - General Family Medicine 10/21/22 documented as of this encounter
--- OUTSIDE RECORDS SUMMARY | 2024-05-23 13:13 | XMS_ITS | Encounter Summary ---
Author Organization [facility] Address [facility] [place] [address] Care Team Providers Care Financial Market Dealer Name Role Phone Ilenaa Azevedo APRN Primary Care Provider [phone] [phone] Encounter Details Date Type Department Care Team (Late st Contact Info) Description 09/10/2023 4:25 PM EST Telehealth [place] [address] Telehealth, Neurology None Social History Tobacco Use [...] on filedocumented in this encounter Care Teams Financial Market Dealer Relationship Specialty Start Date End Date Ileana Azevedo APRN [address] [place] [address] PCP - General Family Medicine 10/21/22 documented as of this encounter
--- OUTSIDE RECORDS SUMMARY | 2024-05-23 13:13 | XMS_ITS ---
Author Name Crystal Mcdermott Address [address] [place] [address] Phone [phone] Organization [facility] e, NA DOCUMENT DISCLAIMER Multiple document versions may exist, please be sure you review the latest version. The information in the [facility] Progress Note Document represents a providers documented clinical note containing certain health and medical information. It may not contain the complete medical history for the patient and should be independently verified. The represented time in the document is Eastern Time PROVIDER ROUNDING NOTE COMP HD PROVIDER?ROUNDING?NOTE?COMP?HD Clinic:?[address] [place] [address] Visit?date:?05/28/2022?00:00?Modality/setting:?IHD CHRISTY?ARNOL?-?Chart?#:?[id number] Method?of?Interaction:?Face?to?face Date?of?Interaction:?04/24/2024 ?-?Patient?is?stable ?-?Medications?and?labs?reviewed. Patient?issues?include: 09/20/2023?-?Recently?had?a?seizure. Prior?Treatment:?04/21/2024? Dialyzer:?180NRe?Optiflux? Dialysate:?2.0?K,?2.5 Ca,?1.0?Mg,?100?Dextrose?(G2251)? Prescribed?Time:?3:45?Avg?BFR:?430?Wt?Gain (kg):?1.90? Actual?Time:?03:50?Avg?DFR:?800?&#16 0;EDW?(kg):?71.00? Volume?Management?Comments: 06/02/2023?-?Euvolemic.??At/below?target?weight.??Decreased EDW?to?70.??? 07/28/2023?-?Euvolemic.??EDW?recently?decreased?based?on&#16 0;post-rx?weights.??No change.?09/01/2023?-?Euvolemic.??Achieving?target weight.??No?change.??? 09/20/2023?-?High?gains?last?2?treatments;?not?usually?the?case.??Euvolemic.? Achieving?target?weight.?10/29/2023?-?Continues?to?have?high?gains.??Not achieving?target?weight.??EDW?changed?to?70;?will?try&# 160;to?gently?challenge.??? 12/03/2023?-?Euvolemic.??Achieving?target?weight.??No?change.?12/31/2023?- Fluid?gains?have?increased?somewhat.??Achieving?target?weight.??No?change.??? 02/02/2024?-?Euvolemic.??Achieving?target?weight.??No?change.?02/28/2024?- Euvolemic.??Achieving?target?weight.??No?change.??&#160 ;?04/05/2024?-?Euvolemic.? Achieving?target?weight.??No?change.?04/24/2024 -?Euvolemic.??Achieving target?weight.??No?change. Adequacy ?spKt/V?eKdrt/V?&#160 ; ???OLC?(Nilo)?spKtv?URR?%?1.57?04/17/24?? ?1.34?04/17/24?? ?1.61?1 ?? ?74?04/17/24? ?1.63?03/13/24?? ?1.41?03/13/24?? ?1.68?1 ?? ?74?03/13/24? ?1.52?02/14/24?? ?1.31?02/14/24?? ?1.67?1 ?? ?71?02/14/24? ?Potassium,?Serum?mEq/L?Bicarbonate?mEq/L??&# 160;?Creatinine?mg/dL?5.2?04/17/24? 22?04/17/24?11 .01?04/17/24?5.4?04/10/24? 24?03/13/24?11 .60?03/13/24?5.6?04/03/24? 22?02/14/24?10 .61?02/14/24?-?Adequacy?parameters?reviewed Adequacy ?-?Adequacy?target?met ?Sitting?BP?Pre?Sitting BP?Post?Systolic/Diastolic?Systolic/Diastolic?158?/?88??04/21/24?114?/?90??04/21/24?94?/?78??04/19/24?134?/?78 ?04/19/24?128?/?72??04/17/24?126?/?89??04/17/24?? Blood?Pressure ?-?Blood?pressure?controlled Fluid?Status ?-?Fluid?status?acceptable Interdialytic?Weight?Gain ?-?Interdialytic?weight?gain?acceptable Prescription?Compliance ?-?Prescription?compliance?acceptable ?-?Potassium?controlled 07/28/2023?-?On?Lokelma.?10/29/2023?-?BP?not&#1 60;always?well?controlled.??Will try?to?gently?challenge?weight,?revisit?fluid?restriction,?and?see?if?that?will bring?the?BP?into?range.?12/03/2023?-?K+?slightly?high.??On?2K?bath?and Lokelma.??Will?continue?to?monitor.?04/05/2024?-?K+?slightly?high.??On?2K bath?and?Lokelma.??Will?continue?to?monitor. Anemia ?HGB?g/dL? Transferrin?Sat.?(Calc)?%?Ferritin?ng/mL&#160 ;?12.0?04/17/24?35?04/17/24?778 ?04/17/24?? ?12.1?04/10/24?35?03/13/24?702 ?03/13/24?? ?12.2?04/03/24?35?02/14/24?681 ?02/14/24?? CRISTY?Administrations ??0?mcg?Mircera?07/25/22 ??0?mcg?Mircera?07/11/22 ??0?mcg?Mircera?06/27/22 IV?Iron?Administrations ??0?mg?Venofer?12/03/23 ??0?mg?Venofer?11/26/23 ??100?mg?Venofer?07/02/23 ?-?Anemia?reviewed ?-?Anemia?targets?met Bone?and?Mineral?Metabolism ??Calcium,?Total?mg/dL?? Calcium,?Corrected?mg/dL ?&#1 60;??Phosphorous?mg/dL??? PTH-Intact,?Plasma?pg/mL ??8.8?04/17/24? 8.8?04/17/24?4.4&#16 0;?04/17/24?297?04/17/24?9.2?03/20/24? 9.7?03/13/24?4.0&#16 0;?03/13/24?153?03/13/24?9.7?03/13/24? 8.6?02/14/24?5.3&#16 0;?02/21/24?400?02/14/24?Vitamin?D?25?Hydroxy?ng/mL? ?Vitamin?D?Analogue? Administrations?Calcimimetics?59.5?03/13/24?0.75?mcg?Vitamin?D??04/21/24??& #160;?-?51.5?12/13/23?0.75?mcg?Vitamin?D??04/19/24??& #160;?-?46.0?09/15/23?0.75?mcg?Vitamin?D??04/17/24??& #160;?-? PTH ?-?PTH?within?target ?-?Bone?and?mineral?metabolism?parameters?reviewed ?-?Calcium?controlled ?-?Phosphorus?controlled 07/28/2023?-?PTH?still?above?target.??Will?increase?calcitriol?to?0.5mcg?qrx.??? 09/01/2023?-?PTH?stable?but?still?above?target.??Will&# 160;increase?calcitriol?to 0.75mcg?qrx,?keeping?a?close?eye?on?calcium.???&#1 60;12/03/2023?-?PTH?within?target, but?significantly?increased?since?last?month.??Will?change&# 160;calcitriol?to?1mcg? on?Mondays?and?continue?0.75mcg?on?Wed.?and?Wed.?12/31/2023?-?Sevelamer previously?held?for?low?phos.??Will?resume?800mg?with&# 160;meals.??Once?phos?is?in range,?will?likely?increase?calcitriol.?04/05/2024?-?Calcitriol?increased?to 0.75mcg?qrx. Nutrition ?Albumin?g/dL? eNPCR?g/kg/day?4.0?04/17/24?? ?0.89?04/17/24?? ?4.0?03/13/24?? ?0.92?03/13/24?? ?4.1?02/14/24?? ?0.83?02/14/24?? ?-?Nutrition?reviewed Home?Medications ?acetaminophen?(acetaminophen) 500?mg,?oral,?2?tablet?three?times?a?day ??allopurinol?(allopurinol) 100?mg,?oral,?1?tablet?once?a?day ??Mt?Low?Dose?Aspirin?(aspirin) 81?mg,?oral,?1?tablet?once?a?day ??benzonatate?(benzonatate) 100?mg,?oral,?1??as?directed ??levetiracetam?(levetiracetam) 250?mg,?oral,?1?tablet?three?times?a?week [POST?Dialysis] ??levetiracetam?(levetiracetam) 500?mg,?oral,?1?tablet?twice?a?day ??levothyroxine?(levothyroxine) 100?mcg,?oral,?1?tablet?once?a?day ??Mucinex?(guaifenesin) 600?mg,?oral,?1?tablet?every?twelve?hours ??pantoprazole?(pantoprazole) 20?mg,?oral,?1?tablet?once?a?day ??Tania-Madiha?(b?complex-vitamin?c-folic?acid) 0.8?mg,?oral,?1?tablet?once?a?day ??sevelamer?carbonate?(sevelamer?carbonate) 800?mg,?oral,?1?tablet?three?times?a?day ??tacrolimus?(tacrolimus) 1?mg,?oral,?1?capsule?twice?a?day ??Veltassa?(patiromer?calcium?sorbitex) 25.2?gram,?oral,?1?packet?once?a?day [take?4?times?a?wk?on?non?dialysis?days,?as?needed?to?reach?desired?K+target.] Vascular?Access?-?Active/Maturing ?Type?Position/Location?Status?Access?ID?CVCatheter-Tunneled?Chest?Active?(In?Use)?[id number]?-?-?&# 160;?-? -?-?-?&# 160;?-? -? Access?Flows ??1391mL?per?min?10/22/21 ??1256mL?per?min?08/29/21 ??1559mL?per?min?08/27/21 ?-?Vascular?access?reviewed ?-?Referral?made?for?access?revision/intervention 05/28/2022?-?PERMANENT?TDC.?? Exam ?-?Vital?signs?reviewed Pulmonary ?-?LUNGS?-?clear Cardiovascular ?-?CV?-?Blood?pressure?noted ?-?CV?-?RRR Edema ?-?EXT?-?No?edema Transplant?Status Topic Exploring?Alternative?Treatment?Options: Kidney?Transplant ?Person?Taught: ?-?Patient ?Additional?Education?Required:?No ?Date?Given:?07/02/2022 Interest?and?Eligibility?(If?changes?are?made,?Please?notify?SW?via?alert?below) ?Date?of?discussion?from?transplant?assessment:?09/08/2023 ?Patient?already?on?transplant?list??No Tobacco?Cessation ??Tobacco?use:?Never?used Crystal?Baldemar,? END OF DOCUMENT
--- OUTSIDE RECORDS SUMMARY | 2024-05-23 13:13 | XMS_ITS | Encounter Summary ---
[place] [address] Care Team Providers Care Zigzag Machine Operator Name Role Phone Roberto CarlosIleana meléndez CATRACHITO Primary Care Provider [phone] Reason for Visit * Reason Comments Medication Refill Encounter Details Date Type Department Care Team (Late st Contact Info) Description 01/11/2024 Refill Neph[place] [address] Luna Solorio [facility] [place] [address] Social History Tobacco Use Types Packs/Day Years Used Date Smoking Tobacco: Former Cigarettes 0.3 1.5 1 08/05/1998 - 12/03/2000 Smokeless Tobacco: Former Quit: 04/14/2001 Alcohol Use Standard Drinks/Week Comments No 0 (1 standard drink = 0.6 oz pur e alcohol) [facility] Inpatient Questions Answer Date Recorded Does Anyone [...] on filedocumented in this encounter Care Teams Zigzag Machine Operator Relationship Specialty Start Date End Date Ileana Azevedo APRN [address] [place] [address] PCP - General Family Medicine 10/21/22 documented as of this encounter
--- OUTSIDE RECORDS SUMMARY | 2024-05-23 13:13 | XMS_ITS | Encounter Summary ---
Author Organization [facility] Address [facility] [place] [address] Care Team Providers Care Ornamental Metal Worker Name Role Phone Ileana Azevedo APRN Primary Care Provider [phone] [phone] Encounter Details Date Type Department Care Team (Late st Contact Info) Description 09/10/2023 6:15 PM EST Ancillary Procedure Radiology Library at [facility] [place] [address] Tim Collins MD [facility] [place] [address] Social History Tobacco Use Types Packs/Day Years [...] FILM LIBRARY O RDERABLES Performing Organization Address City/State/[facility] Co de Phone Number [place], [place] documented in this encounter Visit Diagnoses Not on filedocumented in this encounter Care Teams Ornamental Metal Worker Relationship Specialty Start Date End Date Ileana Azevedo APRN [address] [place] [address] PCP - General Family Medicine 10/21/22 documented as of this encounter
--- OUTSIDE RECORDS SUMMARY | 2024-05-23 13:13 | XMS_ITS | Encounter Summary ---
Author Organization [facility] Address [facility] [place] [address] Care Team Providers Care Line Repairer Name Role Phone Ileana Azevedo APRN Primary Care Provider [phone] [phone] Encounter Details Date Type Department Care Team (Late st Contact Info) Description 09/10/2023 6:20 PM EST Ancillary Procedure Radiology Library at [facility] [place] [address] Tim Collins MD [facility] [address] Social History Tobacco Use Types Packs/Day Years [...] FILM LIBRARY O RDERABLES Performing Organization Address City/State/[facility] Co de Phone Number [place], [place] documented in this encounter Visit Diagnoses Not on filedocumented in this encounter Care Teams Line Repairer Relationship Specialty Start Date End Date Ileana Azevedo APRN [address] [place] [address] PCP - General Family Medicine 10/21/22 documented as of this encounter
--- OUTSIDE RECORDS SUMMARY | 2024-05-23 13:13 | XMS_ITS | Encounter Summary ---
Author Organization [place] [address] Care Team Providers Care Executive Search Consultant Name Role Phone Ileana Azevedo APRN Primary Care Provider [phone] Reason for Visit * Reason Comments Medication Refill Encounter Details Date Type Department Care Team (Late st Contact Info) Description 12/07/2023 Refill [place] [address] Crystal Mcdermott MD [facility] [place] [address] ESRD (end stage renal disease) on dialysis Social History Tobacco Use Types Packs/Day Years Used Date Smoking Tobacco: Former Cigarettes 0.3 1.5 1 08/05/1998 - 12/03/2000 Smokeless Tobacco: Former Quit: 04/14/2001 Alcohol Use Standard Drinks/Week Comments No 0 (1 standard drink = 0.6 oz pur e alcohol) [facility] Inpatient Questions Answer Date Recorded Does [...] disease documented in this encounter Care Teams Executive Search Consultant Relationship Specialty Start Date End Date Ileana Azevedo APRN [address] [place] [address] PCP - General Family Medicine 10/21/22 documented as of this encounter
--- OUTSIDE RECORDS SUMMARY | 2024-05-23 13:14 | XMS_ITS | Encounter Summary ---
Author Organization [facility] [place] [address] Care Team Providers Care Summer Camp Counselor Name Role Phone AlfredoCarroll allison Primary Care Provider [phone] Reason for Referral * Diagnostic Test (Routine) - Closed Specialty Diagnoses / Procedures Referred By Contac t Referred To Contact Radiology Diagnoses ESRD (end stage renal disease) Procedures IR Dialysis Access - Tunneled Line IR Dialysis Access - AV Fistula Evaluations Luna Solorio APRN [facility] [place] [address] [place] [address] Referral ID Status Reason Start Date Expiration Date V isits Requested Visits Authorized [id number] Closed Specialty Service Requested 09/29/2021 04/01/2023 1 1 Reason for Visit * Diagnostic Test (Routine) - Closed Specialty Diagnoses / Procedures Referred By Contac t Referred To Contact Radiology Diagnoses ESRD (end stage renal disease) Procedures IR Dialysis Access - Tunneled Line IR Dialysis Access - AV Fistula Evaluations Luna Solorio APRN [facility] [place] [address] [place] [address] Referral ID Status Reason Start Date Expiration Date V isits Requested Visits Authorized [id number] Closed Specialty Service Requested 09/29/2021 04/01/2023 1 1 Encounter Details Date Type Department Care Team (Latest Contact Info) Description 09/29/2021 3:18 PM EDT - 09/29/2021 6:23 PM EDT Hospital [place] [address] Luna Solorio, BORING MILL SET UP OPERATOR [facility] [place] [address] ESRD (end stage renal disease) Discharge Disposition: [...] * Discharge Instructions* Dania Swartz RN - 09/29/2021 4:46 PM EDT [facility] Vascular and Interventional Radiology Discharge Instructions for [...] is during regular office hours, please call [phone]. If it is after regular office hours, or on weekends or holidays, please call [phone] and ask to speak to the Countersinker solution sales senior executive for Interventional Radiology. You have received medication [...] of : 1960 AGE: 61 y.o. Address: [address] [address] Phone: [phone] (home) Mobile: Telephone Information: Referring Provider: Luna Solorio REASON FOR VISIT: Order Questions Answers Where will study be performed? [facility] Radiology [120] Laterality Right Is [...] face C44.329 ??? 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 emt intermediate current use of immunosuppressive drug Z79.899 [...] Fentanyl 100 mcg IV, tolerated well ? 1604 to procedure room 4 via stretcher. Onto [...] Clotted AVG IR workflow: Received call from [facility] regarding clotted/thrombosed AVG Order Questions Answers Where will study be performed? [facility] Radiology [120] Laterality Right Is [...] be thrombosed s/p TPA administration, venous anastomosis UPSETTER to 8mm and Vel balloon sweep who [...] by mouth 2 times daily. 05/05/21 per Harvest Roya, patient taking 2 capsules in the [...] face C44.329 ??? 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 emt intermediate current use of immunosuppressive drug Z79.899 [...] AV Fistula Evaluations 11/30/2019 Sabrina Velez MD [facility] INTERVENTIONL RAD ??? IR DIALYSIS ACCESS - AV FISTULA EVALUATIONS 01/07/2021 IR Dialysis Access - AV Fistula Evaluations 01/07/2021 Sabrina Velez MD [facility] INTERVENTIONL RAD ??? IR DIALYSIS ACCESS - AV FISTULA EVALUATIONS 09/25/2021 IR Dialysis Access - AV Fistula Evaluations 09/25/2021 Kanu Apple MD [facility] INTERVENTIONL RAD ??? IR DIALYSIS ACCESS - TUNNELED LINE 07/30/2018 IR Dialysis Access - Tunneled Line 07/30/2018 Walt Lin MD [facility] INTERVENTIONL RAD ??? IR DIALYSIS ACCESS - TUNNELED LINE 08/30/2018 IR Dialysis Access - Tunneled Line 08/30/2018 Erwin Simon, [facility] INTERVENTIONL RAD ??? IR DIALYSIS ACCESS - TUNNELED LINE 12/27/2020 IR Dialysis Access - Tunneled Line 12/27/2020 Kanu Apple MD [facility] INTERVENTIONL RAD ??? IR DIALYSIS ACCESS - TUNNELED LINE 01/23/2021 IR Dialysis Access - Tunneled Line 01/23/2021 Kanu Apple MD [facility] INTERVENTIONL RAD ??? IR DIALYSIS ACCESS - TUNNELED LINE 03/20/2021 IR Dialysis Access - Tunneled Line 03/20/2021 Tab Harmon MD [facility] INTERVENTIONL RAD ??? IR LINE OR TUBE REMOVAL IN RECOVERY ROOM 07/31/2021 IR Line or Tube Removal in Recovery Room 07/31/2021 [facility] INTERVENTIONL RAD ??? KIDNEY TRANSPLANT KIDNEY TRANSPLANT / RECIPIENT/LT Procedure Date: 11/26/2002 ??? PRO ANASTOMOSIS, AV, ANY SITE Right 05/22/2021 AV FISTULA CREATION, DIRECT HEMODIALYSIS, ANY SITE, EG MADYSON FISTULA LOWER EXTREMITY (WRVU 11.9) performed by Odalis Elias MD at [facility] OR ??? PRO CREAT AV FISTULA, NON-AUTOGENOUS GRAFT Right 12/13/2018 PLACEMENT, AV HEMODIALYSIS GRAFT, SYNTHETIC GRAFT, UPPER EXTREMITY (WRVU 12.03) performed by Mary Garay MD at [facility] OR ??? PRO CREAT AV FISTULA, NON-AUTOGENOUS GRAFT Left 04/03/2021 PLACEMENT, AV HEMODIALYSIS GRAFT, SYNTHETIC GRAFT, UPPER EXTREMITY (WRVU 12.03) performed by Odalis Elias MD at [facility] MAIN OR ? ? PRO DEBRIDEMENT SUBCUTANEOUS TISSUE 20 SQCM/< Left 02/20/2016 DEBRIDEMENT SKIN AND SUBCU, HEAD/NECK performed by Miguel Angel Moreno MD at [facility] OR ??? PRO DECOMPRESS FOREARM, BRACH ART EXPLOR Left 04/06/2018 FASCIOTOMY, FOREARM, WITH BRACHIAL ARTERY EXPLORATION (WRVU 8.41) performed by Lida Peter MDat [facility] OR ??? PRO DIRECT REPAIR RUPTURED ANEURYSM, AXILLO-BRACHIAL ARM INCIS Left 04/06/2018 @REPAIR, RUPTURED AXILLARY OR BRACHIAL ARTERY ANEURYSM BY ARM INCISION (WRVU *) performed by Lida Peter MD at [facility] OR ??? PRO EXC PAROTD, TOTAL, UNILAT RAD NECK Left 02/05/2016 @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, TOTAL, WITH UNILATERAL RADICAL NECK DISSECTION performed by Miguel Angel Moreno MD at [facility] OR ??? PRO EXC SKIN MALIG 3.1-4CM FACE, FACIAL Left 02/05/2016 EXC MALIGNANT LESION, 3.1 TO 4.0CM, FACE performed by Miguel Angel Moreno MD at [facility] OR ? ? PRO EXC SKIN MALIG >4CM TRUNK, ARM, LEG 04/19/2012 EXC MALIGNANT LESION, MICHAEL > 4.0CM, TRUNK performed by SABRINA SANCHEZ at [facility] OR ??? PRO LAP, RADICAL NEPHRECTOMY Left 05/31/2017 @LAPAROSCOPY, RADICAL NEPHRECTOMY (WRVU 25.06) performed by Jax Mills MD at [facility] OR ??? PRO LIGATN ANGIOACCESS AV FISTULA Left 04/19/2018 LIGATION OR BANDING OF HEMODIALYSIS FISTULA OR GRAFT UPPER EXTREMITY (WRVU 6.25) performed by Odalis Elias MD at [facility] MAIN OR ??? PRO NEGATIVE PRESSURE WOUND THERAPY, LESS THAN OR EQUAL TO 50 SQCM Left 04/19/2018 DRESSING CHANGE (VAC ASSISTED) UP TO 50SQ.CM (WRVU 0.55) performed by Odalis Elias MD [facility] MAIN OR ??? PRO PHLEB VEINS - EXTREM - TO 20 Right 05/22/2021 STAB PHLEBECTOMY LISBET VEINS 1 EXTREMITY 10-20 INCISIONS (WRVU 7.71) performed by Odalis Elias MD at [facility] MAIN OR ??? PRO REBL VES GRAFT, UP EXTREM Left 04/06/2018 REPAIR BLOOD VESSEL WITH GRAFT OTHER THAN VEIN, UPPER EXTREMITY (WRVU 15.83) performed by Lida Peter MD at [facility] MAIN OR ??? PRO RELIEVE PRESSURE ON NERVE(S) Left 04/06/2018 (MSURG) CARPAL TUNNEL (WRVU 4.82) performed by Silviano Sparks MD at [facility] MAIN OR ??? PRO REPAIR INTERMEDIATE S/A/T/E 2.6-7.5 CM 04/19/2012 REPAIR INTERMEDIATE WOUND, (NO HANDS OR FEET) 2.6 TO 7.5CM, UPPER EXTREMITY performed by SABRINA SANCHEZ at [facility] MAIN OR ? ? PRO REPAIR INTERMEDIATE S/A/T/E > 30.0 CM Left 04/14/2018 REPAIR INTERMEDIATE WOUND, (NO HANDS OR FEET) >30.0CM, UPPER EXTREMITY (WRVU 5) performed by Yimi Easton MD at [facility] MAIN OR ??? PRO REVISE MEDIAN N/CARPAL TUNNEL SURG Left 04/06/2018 MEDIAN NERVE DECOMPRESSION (CARPAL TUNNEL RELEASE) (WRVU 4.97) performed by Lida Peter MD [facility] MAIN OR ? ? PRO SPLIT GRFT TRUNK, ARM, LEG <100SQCM Left 04/26/2018 SPLIT THICK SKIN GRAFT,100 SQ CM OR LESS, ARMS (WRVU 9.9) performed by Silviano Sparks MD at [facility] MAIN OR ? ? PRO SPLIT GRFT, HEAD, FAC, HAND, FEET <100SQCM N/A 02/20/2016 SPLIT THICKNESS SKIN SPLIT GRAFT,100SQ CM OR LESS, NECK performed by Miguel Angel Moreno MD at [facility] MAIN OR ??? PRO SPLIT GRFT, TRUNK, ARM, LEG EA 100SQCM N/A 04/26/2018 EA.ADDITIONAL 100SQ.CM STSG (WRVU 1.72) performed by Silviano Sparks MD at [facility] MAIN OR ??? PRO UNLISTED PROCEDURE VASCULAR SURGERY Left 11/20/2015 LIGATION\REPAIR AV FISTULA performed by Camilo Ireland MD at [facility] MAIN OR ??? PRO UNLISTED PROCEDURE VASCULAR SURGERY Left 11/20/2015 EXCISION VEIN FROM HAND performed by Camilo Ireland MD at [facility] MAIN OR ??? PRO UPPER GI ENDOSCOPY, BIOPSY N/A 05/13/2017 EGD WITH BIOPSY (WRVU 2.49) performed by Aditya Barrera MD at [facility] ENDOSCOPY ??? US RENAL TRANSPLANT BIOPSY 12/31/2010 ??? US RENAL TRANSPLANT RIGHT Right 06/04/2018 US Renal Transplant Right 06/04/2018 [facility] RAD ULTRASOUND Social history and [...] be thrombosed s/p TPA administration, venous anastomosis UPSETTER to 8mm and Vel balloon sweep who [...] the IR Nurse. ?? Luna Lopez Lyndsey BORING MILL SET UP OPERATOR IMG IR ORDERABLES * (ABNORMAL) Potassium (09/29/2021 3:56 PM EDT) Potassium 6.8(Criti constance) 3.5 - 5.0 mmol/L [facility] Comment: called by EB/read back by Ashleigh Jurado 09-29-21 @ 7609 Please note: ??Patients with WBC >100,000 may have falsely elevated Potassium levels. ??For accurate Potassium quantification in these patients send serum separator tube (gold top) for subsequent determinations. ??Contact the Clinical Chemistry Laboratory if there are any questions. Blood 09/29/2021 3:56 PM EDT 09/29/2021 4:07 PM EDT Narrative Resulting Agency Comment Spec In Lab Sabrina Velez MD CHEMISTRY ORDERABLES [facility] [place] [address] documented in this encounter Visit Diagnoses Diagnosis [...] mg documented in this encounter Care Teams Summer Camp Counselor Relationship Specialty Start Date End Date Carroll Fuentes DO [address] [place] [address] PCP - General 09/23/11 10/20/22 documented as of this encounter
--- OUTSIDE RECORDS SUMMARY | 2024-05-23 13:14 | XMS_ITS | Encounter Summary ---
[place] [address] Care Team Providers Care Document Management Analyst Name Role Phone AlfredoCarroll allison Primary Care Provider [phone] Reason for Referral * Diagnostic Test (Routine) - Closed Specialty Diagnoses / Procedures Referred By Shashi ko Referred To Contact Radiology Diagnoses CKD (chronic kidney disease) stage 5, GFR less than 15 ml/min Procedures IR Dialysis Access - Tunneled Line Luna Solorio APRN [facility] [place] [address] [facility] [place] [address] Referral ID Status Reason Start Date Expiration Date V isits Requested Visits Authorized [id number] Closed Specialty Service Requested 09/24/2022 03/27/2024 1 1 Encounter Details Date Type Department Care Team (Late st Contact Info) Description 09/24/2022 Orders Only [place] [address] Luna Solorio APRN [facility] [place] [address] CKD (chronic kidney disease) stage [...] Suarez performed this procedure. Luna John Solorio PROJECT MANAGEMENT SPECIALIST IMG IR ORDERABLES documented in this encounter Visit Diagnoses Diagnosis CKD (chronic kidney disease) stage 5, GFR less than 15 ml/min Chronic kidney disease, Stage V CKD (chronic kidney disease) stage 5, GFR less than 15 ml/min Chronic kidney disease, Stage V documented in this encounter Care Teams Document Management Analyst Relationship Specialty Start Date End Date Carroll Fuentes DO [address] [facility] [address] [place] [address] PCP - General 09/23/11 10/20/22 documented as of this encounter
--- OUTSIDE RECORDS SUMMARY | 2024-05-23 13:14 | XMS_ITS | Encounter Summary ---
Author Organization [facility] [place] [address] Care Team Providers Care Bootmaker Hand Name Role Phone AlfredoCarroll allison Primary Care Provider [phone] Reason for Referral * Diagnostic Test (Routine) - Closed Specialty Diagnoses / Procedures Referred By Shashi ko Referred To Contact Radiology Diagnoses ESRD (end stage renal disease) Procedures IR Dialysis Access - AV Fistula Evaluations Luna Solorio BANANA CARRIER [facility] [place] [address] [place] [address] Referral ID Status Reason Start Date Expiration Date V isits Requested Visits Authorized [id number] Closed Specialty Service Requested 10/24/2021 04/25/2023 1 1 Encounter Details Date Type Department Care Team (Late st Contact Info) Description 10/24/2021 Orders Only [place] [address] Luna Solorio APRN [facility] [place] [address] ESRD (end stage renal disease) [...] dialysis graft was accessed and a 7 Burmese sheath was placed. Access technique: Micropuncture set with 21 gauge needle Access direction: Toward venous anastomosis Second access Local anesthesia was administered. The dialysis graft was accessed in a second location and a 6 Burmese sheath was placed. Access technique: Micropuncture set with 21 gauge needle Access direction: Toward arterial anastomosis Intra-procedural thrombolytic injection Thrombolytic was injected within the thrombosed segment of the graft. Thrombolytic agent: tPA Thrombolytic dose: 1 mg Mechanical or aspiration thrombectomy Thrombectomy of the graft and outflow venous segments was performed. Thrombectomy device: Clot maceration and displacement with [place] balloon and Vel catheter Pulling of arterial [...] the venous outflow was performed. Angioplasty balloon(s): [employer] [place] 7 mm ??x 4 cm Findings: Moderate 5 cm long stenotic venous outflow with persistent stenosis despite multiple angioplasties with no residual waist. Angioplasty Angioplasty of the artery graft anastomosis was performed. Angioplasty balloon(s): [employer] [place] 5 mm x 4 cm Findings: Despite multiple balloon dilations without residual waist, there is persistent stenosis on both angiography performed from the arterial side and reflux angiography. Stent placement Stent placement was performed venous outflow distal to prior stent due to recurrent elastic stenosis despite multiple angioplasty attempts. Stent placed: [place] [employer] Stent type: Covered Stent diameter (mm): [...] who have questions please contact the health career specialist that requested your imaging first. ? Narrative 11/08/2021 6:05 PM EDT PROCEDURE: Arteriovenous [...] The dialysis graft was accessed and a7 Burmese sheath was placed. Access technique: Micropuncture set with 21 gauge needle Access direction: Toward venous anastomosis Second access Local anesthesia was administered. The dialysis graft was accessed in asecond location and a 6 Burmese sheath was placed. Access technique: Micropuncture set with 21 gauge needle Access direction: Toward arterial anastomosis Intra-procedural thrombolytic injection Thrombolytic was injected within the thrombosed segment of the graft. Thrombolytic agent: tPA Thrombolytic dose: 1 mg Mechanical or aspiration thrombectomy Thrombectomy of the graft and outflow venous segments was performed. Thrombectomy device: Clot maceration and displacement with [place] balloonand Vel catheter Pulling of arterial plug [...] the venous outflow was performed. Angioplasty balloon(s): [employer] [place] 7 mm x 4 cm Findings: Moderate 5 cm long stenotic venous outflow with persistentstenosis despite multiple angioplasties with no residual waist. Angioplasty Angioplasty of the artery graft anastomosis was performed. Angioplasty balloon(s): [employer] [place] 5 mm x 4 cm Findings: Despite multiple balloon dilations without residual waist, thereis persistent stenosis on both angiography performed from the arterial sideand reflux angiography. Stent placement Stent placement was performed venous outflow distal to prior stent dueto recurrent elastic stenosis despite multiple angioplasty attempts. Stent placed: [place] [employer] Stent type: Covered Stent diameter (mm): [...] patients who have questions please contactthe health career specialist that requested your imaging first. Luna L Lyndsey BANANA CARRIER IMG IR ORDERABLES documented in this encounter Visit Diagnoses Diagnosis ESRD (end stage renal disease) End stage renal disease ESRD (end stage renal disease) End stage renal disease documented in this encounter Care Teams Bootmaker Hand Relationship Specialty Start Date End Date Carroll Fuentes DO [address] [place] [address] PCP - General 09/23/11 10/20/22 documented as of this encounter
--- OUTSIDE RECORDS SUMMARY | 2024-05-23 13:14 | XMS_ITS | Encounter Summary ---
[place] [address] Care Team Providers Care Canoe Maker Name Role Phone AlfredoCarroll allison Primary Care Provider [phone] Reason for Referral * Diagnostic Test (Routine) - Closed Specialty Diagnoses / Procedures Referred By Shashi ko Referred To Contact Radiology Diagnoses ESRD (end stage renal disease) Procedures IR Dialysis Access - Tunneled Line Luna Solorio STOCK WETTER [facility] [place] [address] [place] [address] Referral ID Status Reason Start Date Expiration Date V isits Requested Visits Authorized [id number] Closed Specialty Service Requested 10/07/2022 04/09/2024 1 1 Encounter Details Date Type Department Care Team (Late st Contact Info) Description 10/07/2022 Orders Only Neph[place] [address] Luna Solorio APRN [facility] [place] [address] ESRD (end stage renal disease) [...] disease documented in this encounter Care Teams Canoe Maker Relationship Specialty Start Date End Date Carroll Fuentes DO [address] [place] [address] PCP - General 09/23/11 10/20/22 documented as of this encounter
--- OUTSIDE RECORDS SUMMARY | 2024-05-23 13:14 | XMS_ITS | Encounter Summary ---
Author Organization [facility] Address [facility] [place] [address] Care Team Providers Care Intelligence Operations Specialist Name Role Phone Alfredo, Carroll MIX Primary Care Provider [phone] Encounter Details Date Type Department Care Team (Late st Contact Info) Description 11/14/2021 Telephone [place] [id number] Tessa Folres MSW [facility] [place] [address] Social History Tobacco Use Types Packs/Day Years [...] call from Adama's brother and guardian, Lucas [phone] asking what treatment for COVID his brother could have since he is a kidney recipient. Worker deferred to the medical providers to answer this question and took his number so someone could call him back. documented in this encounter Plan of Treatment Not on file documented as of this encounter Visit Diagnoses Not on filedocumented in this encounter Care Teams Intelligence Operations Specialist Relationship Specialty Start Date End Date Carroll Fuentes DO [address] [place] [address] PCP - General 09/23/11 10/20/22 documented as of this encounter
--- OUTSIDE RECORDS SUMMARY | 2024-05-23 13:14 | XMS_ITS | Encounter Summary ---
[facility] [place] [address] Care Team Providers Care Fold Skiver Name Role Phone AlfredoCarroll geiger Primary Care Provider [phone] Encounter Details Date Type Department Care Team (Late st Contact Info) Description 11/07/2021 12:30 PM EDT Tech [place] [address] Nicolás Marte ESRD (end stage renal disease) [...] Text Report Department: Vascular Surgery Lab Patient: [id number] (CHRISTY AMBROSE) CPT: 79703 Referring Physician: ARIES TONG ?? Phone: Indications: [...] encounter documented in this encounter Care Teams Fold Skiver Relationship Specialty Start Date End Date Carroll Fuentes DO [address] [place] [address] PCP - General 09/23/11 10/20/22 documented as of this encounter
--- OUTSIDE RECORDS SUMMARY | 2024-05-23 13:14 | XMS_ITS | Encounter Summary ---
Author Organization [facility] [place] [address] Care Team Providers Care Form Setter Helper Name Role Phone Carroll Fuentes DO Primary Care Provider [phone] Encounter Details Date Type Department Care Team (Late st Contact Info) Description 10/07/2022 [place] [address] Tab Harmon MD [facility] [place] [address] Social History Tobacco Use Types Packs/Day Years [...] face C44.329 ??? 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 shelter current [...] AV Fistula Evaluations 11/30/2019 Sabrina Velez MD [facility] INTERVENTIONL RAD ??? IR DIALYSIS ACCESS - AV FISTULA EVALUATIONS 01/07/2021 IR Dialysis Access - AV Fistula Evaluations 01/07/2021 Sabrina Velez MD [facility] INTERVENTIONL RAD ??? IR DIALYSIS ACCESS - AV FISTULA EVALUATIONS 09/25/2021 IR Dialysis Access - AV Fistula Evaluations 09/25/2021 Kanu Apple MD [facility] INTERVENTIONL RAD ??? IR DIALYSIS ACCESS - AV FISTULA EVALUATIONS 10/10/2021 IR Dialysis Access - AV Fistula Evaluations 10/10/2021 Walt Lin MD [facility] INTERVENTIONL RAD ??? IR DIALYSIS ACCESS - AV FISTULA EVALUATIONS 11/05/2021 IR Dialysis Access - AV Fistula Evaluations 11/05/2021 Walt Lin MD [facility] INTERVENTIONL RAD ??? IR DIALYSIS ACCESS - TUNNELED LINE 07/30/2018 IR Dialysis Access - Tunneled Line 07/30/2018 Walt Lin MD [facility] INTERVENTIONL RAD ??? IR DIALYSIS ACCESS - TUNNELED LINE 08/30/2018 IR Dialysis Access - Tunneled Line 08/30/2018 Erwin Simon APRN [facility] INTERVENTIONL RAD ??? IR DIALYSIS ACCESS - TUNNELED LINE 12/27/2020 IR Dialysis Access - Tunneled Line 12/27/2020 Kanu Apple MD [facility] INTERVENTIONL RAD ??? IR DIALYSIS ACCESS - TUNNELED LINE 01/23/2021 IR Dialysis Access - Tunneled Line 01/23/2021 Kanu Apple MD [facility] INTERVENTIONL RAD ??? IR DIALYSIS ACCESS - TUNNELED LINE 03/20/2021 IR Dialysis Access - Tunneled Line 03/20/2021 Tab Harmon MD [facility] INTERVENTIONL RAD ??? IR DIALYSIS ACCESS - TUNNELED LINE 09/29/2021 IR Dialysis Access - Tunneled Line 09/29/2021 Tab Harmon MD [facility] INTERVENTIONL RAD ??? IR DIALYSIS ACCESS - TUNNELED LINE 09/30/2022 IR Dialysis Access - Tunneled Line 09/30/2022 Sabrina Velez MD [facility] INTERVENTIONL RAD ??? IR LINE OR TUBE REMOVAL IN RECOVERY ROOM 07/31/2021 IR Line or Tube Removal in Recovery Room 07/31/2021 [facility] INTERVENTIONL RAD ??? KIDNEY TRANSPLANT KIDNEY TRANSPLANT / RECIPIENT/LT Procedure Date: 11/26/2002 ??? PRO ANASTOMOSIS, AV, ANY SITE Right 05/22/2021 AV FISTULA CREATION, DIRECT HEMODIALYSIS, ANY SITE, EG MADYSON FISTULA LOWER EXTREMITY (WRVU 11.9) performed by Odalis Elias MD at [facility] MAIN OR ??? PRO CREAT AV FISTULA, NON-AUTOGENOUS GRAFT Right 12/13/2018 PLACEMENT, AV HEMODIALYSIS GRAFT, SYNTHETIC GRAFT, UPPER EXTREMITY (WRVU 12.03) performed by Mary Garay MD at [facility] OR ??? PRO CREAT AV FISTULA, NON-AUTOGENOUS GRAFT Left 04/03/2021 PLACEMENT, AV HEMODIALYSIS GRAFT, SYNTHETIC GRAFT, UPPER EXTREMITY (WRVU 12.03) performed by Odalis Elias MD at [facility] MAIN OR ? ? PRO DEBRIDEMENT SUBCUTANEOUS TISSUE 20 SQCM/< Left 02/20/2016 DEBRIDEMENT SKIN AND SUBCU, HEAD/NECK performed by Miguel Angel Moreno MD at [facility] MAIN OR ??? PRO DECOMPRESS FOREARM, BRACH ART EXPLOR Left 04/06/2018 FASCIOTOMY, FOREARM, WITH BRACHIAL ARTERY EXPLORATION (WRVU 8.41) performed by Lida Peter MDat [facility] OR ??? PRO DIRECT REPAIR RUPTURED ANEURYSM, AXILLO-BRACHIAL ARM INCIS Left 04/06/2018 @REPAIR, RUPTURED AXILLARY OR BRACHIAL ARTERY ANEURYSM BY ARM INCISION (WRVU *) performed by Lida Peter MD at [facility] MAIN OR ??? PRO EXC PAROTD, TOTAL, UNILAT RAD NECK Left 02/05/2016 @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, TOTAL, WITH UNILATERAL RADICAL NECK DISSECTION performed by Miguel Angel Moreno MD at [facility] MAIN OR ??? PRO EXC SKIN MALIG 3.1-4CM FACE, FACIAL Left 02/05/2016 EXC MALIGNANT LESION, 3.1 TO 4.0CM, FACE performed by Miguel Angel Moreno MD at [facility] OR ? ? PRO EXC SKIN MALIG >4CM TRUNK, ARM, LEG 04/19/2012 EXC MALIGNANT LESION, MICHAEL > 4.0CM, TRUNK performed by SABRINA SANCHEZ at [facility] OR ??? PRO LAP, RADICAL NEPHRECTOMY Left 05/31/2017 @LAPAROSCOPY, RADICAL NEPHRECTOMY (WRVU 25.06) performed by Jax Mills MD at [facility] OR ??? PRO LIGATN ANGIOACCESS AV FISTULA Left 04/19/2018 LIGATION OR BANDING OF HEMODIALYSIS FISTULA OR GRAFT UPPER EXTREMITY (WRVU 6.25) performed by Odalis Elias MD at [facility] MAIN OR ??? PRO NEGATIVE PRESSURE WOUND THERAPY, LESS THAN OR EQUAL TO 50 SQCM Left 04/19/2018 DRESSING CHANGE (VAC ASSISTED) UP TO 50SQ.CM (WRVU 0.55) performed by Odalis Elias MD [facility] OR ??? PRO PHLEB VEINS - EXTREM - TO 20 Right 05/22/2021 STAB PHLEBECTOMY LISBET VEINS 1 EXTREMITY 10-20 INCISIONS (WRVU 7.71) performed by Odalis Elias MD at [facility] OR ??? PRO REBL VES GRAFT, UP EXTREM Left 04/06/2018 REPAIR BLOOD VESSEL WITH GRAFT OTHER THAN VEIN, UPPER EXTREMITY (WRVU 15.83) performed by Lida Peter MD at [facility] OR ??? PRO RELIEVE PRESSURE ON NERVE(S) Left 04/06/2018 (MSURG) CARPAL TUNNEL (WRVU 4.82) performed by Silviano Sparks MD at [facility] OR ??? PRO REPAIR INTERMEDIATE S/A/T/E 2.6-7.5 CM 04/19/2012 REPAIR INTERMEDIATE WOUND, (NO HANDS OR FEET) 2.6 TO 7.5CM, UPPER EXTREMITY performed by SABRINA SANCHEZ at [facility] MAIN OR ? ? PRO REPAIR INTERMEDIATE S/A/T/E > 30.0 CM Left 04/14/2018 REPAIR INTERMEDIATE WOUND, (NO HANDS OR FEET) >30.0CM, UPPER EXTREMITY (WRVU 5) performed by Yimi Easton MD at [facility] MAIN OR ??? PRO REVISE MEDIAN N/CARPAL TUNNEL SURG Left 04/06/2018 MEDIAN NERVE DECOMPRESSION (CARPAL TUNNEL RELEASE) (WRVU 4.97) performed by Lida Peter MD On license of [facility] MAIN OR ? ? PRO SPLIT GRFT TRUNK, ARM, LEG <100SQCM Left 04/26/2018 SPLIT THICK SKIN GRAFT,100 SQ CM OR LESS, ARMS (WRVU 9.9) performed by Silviano Sparks MD at [facility] MAIN OR ? ? PRO SPLIT GRFT, HEAD, FAC, HAND, FEET <100SQCM N/A 02/20/2016 SPLIT THICKNESS SKIN SPLIT GRAFT,100SQ CM OR LESS, NECK performed by Miguel Angel Moreno MD at [facility] MAIN OR ??? PRO SPLIT GRFT, TRUNK, ARM, LEG EA 100SQCM N/A 04/26/2018 EA.ADDITIONAL 100SQ.CM STSG (WRVU 1.72) performed by Silviano Sparks MD at [facility] MAIN OR ??? PRO UNLISTED PROCEDURE VASCULAR SURGERY Left 11/20/2015 LIGATION\REPAIR AV FISTULA performed by Camilo Ireland MD at [facility] MAIN OR ??? PRO UNLISTED PROCEDURE VASCULAR SURGERY Left 11/20/2015 EXCISION VEIN FROM HAND performed by Camilo Ireland MD at [facility] MAIN OR ??? PRO UPPER GI ENDOSCOPY, BIOPSY N/A 05/13/2017 EGD WITH BIOPSY (WRVU 2.49) performed by Aditya Barrera MD at [facility] ENDOSCOPY ??? US RENAL TRANSPLANT BIOPSY 12/31/2010 ??? US RENAL TRANSPLANT RIGHT Right 06/04/2018 US Renal Transplant Right 06/04/2018 [facility] RAD ULTRASOUND Medications: Medication Sig ??? guaiFENesin [...] Not on file Occupational History ??? 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 Smoking status: [...] on filedocumented in this encounter Care Teams Form Setter Helper Relationship Specialty Start Date End Date Carroll Fuentes DO [address] [place] [address] PCP - General 09/23/11 10/20/22 documented as of this encounter
--- OUTSIDE RECORDS SUMMARY | 2024-05-23 13:14 | XMS_ITS | Encounter Summary ---
[place] [address] Care Team Providers Care Director Hair Name Role Phone AlfredoCarroll allison Primary Care Provider Reason for Referral * Diagnostic Test (Routine) - Closed Specialty Diagnoses / Procedures Referred By Contac t Referred To Contact Radiology Diagnoses CKD (chronic kidney disease) stage 5, GFR less than 15 ml/min Procedures IR Dialysis Access - Tunneled Line Luna Solorio APRN [facility] [place] [address] [place] [address] [facility] [place] [address] Referral ID Status Reason Start Date Expiration Date V isits Requested Visits Authorized [id number] Closed Specialty Service Requested 09/24/2022 03/27/2024 1 1 Reason for Visit * Diagnostic Test (Routine) - Closed Specialty Diagnoses / Procedures Referred By Contac t Referred To Contact Radiology Diagnoses CKD (chronic kidney disease) stage 5, GFR less than 15 ml/min Procedures IR Dialysis Access - Tunneled Line Luna Solorio APRN [facility] [place] [address] [facility] [place] [address] Referral ID Status Reason Start Date Expiration Date V isits Requested Visits Authorized [id number] Closed Specialty Service Requested 09/24/2022 03/27/2024 1 1 Encounter Details Date Type Department Care Team (Latest Contact Info) Description 09/30/2022 10:27 AM EDT - 09/30/2022 11:59 PM EDT Hospital En[place] [address] Luna Solorio, ELECTRIC DISTRIBUTION ENGINEER [facility] NEPHROLOGY [place] [id number] CKD (chronic kidney disease) stage 5, GFR [...] Haddad, RN - 09/30/2022 12:25 PM EDT [facility] Vascular and Interventional Radiology Discharge Instructions [...] is during regular office hours, please call [phone]. If it is after regular office hours, or on weekends or holidays, please call [phone] and ask to speak to the Potato Grader onyx chip terrazzo worker for Interventional Radiology. You have received medication [...] of : 1960 AGE: 62 y.o. Address: [place] [address] (home) Mobile: No relevant phone numbers on file. Referring Provider: Luna Solorio REASON FOR VISIT: Order Questions Answers Where will study be performed? [facility] Radiology [120] Is the patient on [...] parts of face C44.329 Prophylactic immunotherapy Z29.8 intermediate frame tender current use of immunosuppressive drug Z79.899 H/O [...] HD Tunneled line exchange / angioplasty at [facility] Local only, tolerated well 09/25/21 RLE fistulagram [...] mg documented in this encounter Care Teams Director Hair Relationship Specialty Start Date End Date Carroll Fuentes DO [address] [place] [address] [address] [place] [address] PCP - General 3/14/12 4/11/23 documented as of this encounter
--- OUTSIDE RECORDS SUMMARY | 2024-05-23 13:14 | XMS_ITS | Encounter Summary ---
Author Organization [facility] Address [facility] [place] [address] Care Team Providers Care Creative Lead Name Role Phone AlfredoCarroll allison Primary Care Provider [phone] Reason for Visit * Reason Comments Vascular Access Problem Needs HD Encounter Details Date Type Department Care Team (Late st Contact Info) Description 09/29/2021 6:24 PM EDT - 09/30/2021 10:35 AM EDT [place] [id number] Erwin Hernandez MD [facility] [place] [address] Hyperkalemia (Primary Dx); Encounter for acute hemodialysis [...] EDT Called to schedule ride back to [facility]. She stated she will call back [...] MAGNESIUM PHOSPHORUS REQUEST FOR BLOOD GAS DRAW ([facility]) DIFFERENTIAL, AUTOMATED POCT GLUCOSE POCT FINGERSTICK [...] up, return precautions Condition at Discharge/admission: stable Ayan Cordova MD PGY-3 Ayan Cordova MD Resident 09/30/21 0433 * Susanna Gimenez MD - 09/29/2021 8:46 PM EDT ED Resident Note HPI: Adaam Ram is a 61 y.o. male with [...] Sinus bradycardia with HR 45, QRS 82, W[place] 174, QTc 389. No evidence of peaked [...] himself and uses a ridesharing program from [facility] where he lives. Unfortunately, the rideshare [...] stretcher, awake, alert, not in distress, on groundwater monitoring technician and pulse oximeter. 2005H Moved to Room 14 for Dialysis procedure as instructed by Charge nurse on duty. emergency services dispatcher arrived with machine. Vital signs pre-procedure checked [...] something to eat and drink. 0650H Called [facility] and according to staff to call [phone] [facility] ([facility]) to set up a pick-up time for patient and bring him back to [address] [place] [address]. RCT will open at 8am. ED team [...] 10 - 20 mg/dL [facility] Comment:result rechecked- vh Creatinine 7.48(H) 0.80 - 1.50 mg/dL [facility] Comment:result rechecked- vh Sodium 135 135 - 145 mmol/L [facility] Potassium 6.1(Criti constance) 3.5 - 5.0 mmol/L [facility] Comment: result rechecked- vh ?Called by: , Read back by: Cammy Sandoval, Date/Time:09/30/21 08:33. Please note: ??Patients with WBC >100,000 may have falsely elevated Potassium levels. ??For accurate Potassium quantification in these patients send serum separator tube (gold top) for subsequent determinations. ??Contact the Clinical Chemistry Laboratory if there are any questions. Chloride 97(L) 98 - 107 mmol/L [facility] Carbon Dioxide 24 22 - 31 mmol/L [facility] Anion Gap 14 5 - 15 mmol/L [facility] Calcium 8.7 8.5 - 10.5 mg/dL [facility] Est Glomerular Filtration Rate 7(L) >=60 mL/min/1. 73 m?? [facility] Comment: This patient? s estimated [...] In Lab Gaby Mesa MD CHEMISTRY ORDERABLES [facility] [place] [address] * POCT Glucose (09/30/2021 6:34 AM EDT) Glucose, POC 80 65 - 199 mg/dL [facility] Comment: Supplemental ranges: <140 mg/dL before meals <180 mg/dL all other times of the day Blood 09/30/2021 6:34 AM EDT 09/30/2021 6:34 AM EDT Erwin Hernandez MD POINT OF CARE TEST ORDERABLES Performing Organization Address City/[facility]/ZIP Co de Phone Number [facility] [place] [address] * POCT Glucose (09/30/2021 1:03 AM EDT) Glucose, POC 95 65 - 199 mg/dL [facility] Comment: Supplemental ranges: <140 mg/dL before meals <180 mg/dL all other times of the day Blood 09/30/2021 1:03 AM EDT 09/30/2021 1:03 AM EDT Erwin Hernandez MD POINT OF CARE TEST ORDERABLES [facility] [place] [address] * (ABNORMAL) BLOOD GAS 2 VENOUS (09/29/2021 8:19 PM EDT) pH, Venous 7.35 7.32 - 7.42 [facility] PCO2, Venous 52(H) 41 - 51 mmHg [facility] PO2, Venous 26 25 - 40 mmHg [facility] Bicarbonate, Venous 27.8 mmol/L [facility] Base Excess, Venous 2.1 mmol/L [facility] Hgb Blood Gas 16.4 13.7 - 16.5 g/dL [facility] Oxyhemoglobin, Venous 37.9 % [facility] Carboxyhemoglob in, Venous 1.3 % [facility] Comment: Nonsmokers: 0.5-1.5% COHB Smokers: Variable, but usually less than 10% Toxic: 20-30% COHB Lethal: Greater than 60% COHB Methemoglobin, Venous 0.6 <=1.5 % [facility] Na Whole Blood 136 135 - 145 mmol/L [facility] K Whole Blood 7.2(Critic al) 3.5 - 5.0 mmol/L [facility] Comment: Please note: Patients with WBC >100,000 may have falsely elevated Potassium levels. Contact the Clinical Chemistry Laboratory if there are any questions. ICa Whole Blood 1.05(L) 1.15 - 1.33 mmol/L [facility] Comment: Note: ??Total bilirubin higher than 20 mg/dL may lead to falsely low ionized calcium. CL Whole Blood 97(L) 98 - 107 mmol/L [facility] Gluc Whole Bld 92 65 - 199 mg/dL [facility] Comment:Diabetes: >=200 mg/d L plus symptoms Lactate WB 1.6 0.5 - 2.2 mmol/L [facility] Blood Gas Source Venous [facility] Blood 09/29/2021 8:19 PM EDT 09/29/2021 8:19 PM EDT Erwin Hernandez MD POINT OF CARE TEST ORDERABLES Performing Organization Address City/[facility]/ZIP Co de Phone Number [facility] [place] [address] * Differential, Automated (09/29/2021 7:35 PM EDT) Neutrophil % 66.5 % [facility] Neutrophil Absolute 4.06 1.70 - 6.10 x10(3)/[facility] LABORATORY Lymph % 18.5 % [facility] Lymphocytes Abs 1.1 0.9 - 3.2 x10(3)/[facility] LABORATORY Monocyte % 8.8 % [facility] Monocyte Abs 0.5 0.3 - 0.9 x10(3)/[facility] LABORATORY Eos % 5.2 % [facility] Eosinophils Abs 0.3 0.0 - 0.4 x10(3)/[facility] LABORATORY Basophil % 0.5 % [facility] Baso Absolute 0.0 0.0 - 0.1 x10(3)/[facility] LABORATORY Immature Gran % 0.50 % [facility] Comment: Immature granulocytes(IG's)percentage and absolute count will include metamyelocytes, myelocytes, and promyelocytes. Blood smears from CBCs yielding IG's will be scanned manually for concordance. If this scan disagrees with the automated IG or if promyelocytes are noted, a manual differential will be performed. Immature Gran Absolute 0.03 0.00 - 0.04 x10(3)/[facility] LABORATORY Blood 09/29/2021 7:35 PM EDT 09/29/2021 8:10 PM EDT Narrative Resulting Agency Comment Spec In Lab Ruddy Dennis APRN HEMATOLOGY ORDERABLE S Performing Organization Address City/[facility]/ZIP Co de Phone Number [facility] [place] [address] * (ABNORMAL) Hemogram (09/29/2021 7:35 PM EDT) White Blood Cell 6.1 4.0 - 9.5 x10(3)/mc L [facility] Red Blood Cell 3.40(L) 4.58 - 5.54 x10(6)/mc L [facility] Hemoglobin 11.4(L) 13.7 - 16.5 g/dL [facility] Hematocrit 33.8(L) 40.5 - 48.5 % [facility] Mean Cell Volume 99.4(H) 82.9 - 93.1 fL [facility] Mean Cell Hemoglobin 33.5(H) 27.5 - 32.1 pg [facility] Mean Cell Hemoglobin Concentration 33.7 32.0 - 35.7 g/dL [facility] Platelet 175 145 - 357 x10(3)/[facility] LABORATORY RDW Standard Deviation 52.3(H) 36.0 - 45.0 [facility] LABORATORY RDW coefficient of variation 14.3(H) 11.4 - 13.8 % [facility] Mean Platelet Volume 8.5 7.6 - 12.9 [facility] LABORATORY NRBC% auto 0.0 % [facility] NRBC Absolute 0.000 0.000 - 0.000 x10(3)/mc L [facility] Blood 09/29/2021 7:35 PM EDT 09/29/2021 8:10 PM EDT Narrative Resulting Agency Comment Spec In Lab Ruddy Dennis SOFTWARE ARCHITECT HEMATOLOGY ORDERABLE S [facility] [place] [address] * Phosphorus (09/29/2021 7:35 PM EDT) Phosphorus 4.0 2.5 - 4.5 mg/dL [facility] Blood 09/29/2021 7:35 PM EDT 09/29/2021 8:10 PM EDT Narrative Resulting Agency Comment Spec In Lab Ruddy [employer] SOFTWARE ARCHITECT CHEMISTRY ORDERABLES Performing Organization Address City/[facility]/ZIP Co de Phone Number [facility] [place] [address] * Magnesium (09/29/2021 7:35 PM EDT) Magnesium 0.99 0.69 - 1.07 mmol/L [facility] Blood 09/29/2021 7:35 PM EDT 09/29/2021 8:10 PM EDT Narrative Resulting Agency Comment Spec In Lab [facility] CHEMISTRY ORDERABLES Performing Organization Address [facility] Co de Phone Number [facility] [place] [address] * (ABNORMAL) Basic Metabolic Panel (non-fasting) (09/29/2021 7:35 PM EDT) Glucose 96 65 - 199 mg/dL [facility] Comment:Diabetes: >=200 mg/d L plus symptoms Blood Urea Nitrogen 81(H) 10 - 20 mg/dL [facility] Creatinine 11.83(Cri tical) 0.80 - 1.50 mg/dL [facility] Comment:called by EB/read ba ck by Miriam Lambert 09-29-21 @ 2056 Sodium 140 135 - 145 mmol/L [facility] Potassium 7.5(Criti constance) 3.5 - 5.0 mmol/L [facility] Comment: called by EB/read back by Miriam Lambert [id number] Please note: ??Patients with WBC >100,000 may have falsely elevated Potassium levels. ??For accurate Potassium quantification in these patients send serum separator tube (gold top) for subsequent determinations. ??Contact the Clinical Chemistry Laboratory if there are any questions. Chloride 95(L) 98 - 107 mmol/L [facility] Carbon Dioxide 27 22 - 31 mmol/L [facility] Anion Gap 18(H) 5 - 15 mmol/L [facility] Calcium 8.9 8.5 - 10.5 mg/dL [facility] Est Glomerular Filtration Rate 4(L) >=60 mL/min/1. 73 m?? [facility] Comment: This patient? s estimated [...] In Lab Ruddy Dennis APRN CHEMISTRY ORDERABLES [facility] [place] [address] * EKG 12 Lead (09/29/2021 6:31 PM EDT) Ventricular rate 45 BPM MUSE SYSTEM Atrial Rate 45 BPM MUSE SYSTEM P-R Interval 174 ms MUSE SYSTEM QRS Duration 82 ms MUSE SYSTEM Q-T Interval 450 ms MUSE SYSTEM QTC Calculated (Bezet) 389 ms MUSE SYSTEM Calculated P [place] 66 degrees MUSE SYSTEM Calculated R [place] 42 degrees MUSE SYSTEM Calculated T [place] 59 degrees MUSE SYSTEM INTERPRETATION Sinus bradycardia Otherwise normal ECG When compared with ECG of 25-SEP-2021 09:57, No significant change was found Confirmed by MD Supa, Anand Berman ([id number]) on 09/30/2021 12:03:10 PM MUSE SYSTEM 09/29/2021 6:31 PM EDT 09/30/2021 12:03 PM EDT Ruddy Dennis SOFTWARE ARCHITECT ECG ORDERABLES [place] [facility] documented in this encounter Visit Diagnoses [...] Warning Vesicant/Irritant Medication Patient must be on groundwater monitoring technician when receiving calcium; calcium can [...] Warning Vesicant/Irritant Medication Patient must be on groundwater monitoring technician when receiving calcium; calcium can [...] check documented in this encounter Care Teams Creative Lead Relationship Specialty Start Date End Date Carroll Fuentes DO [address] [place] [address] PCP - General 09/23/11 10/20/22 documented as of this encounter
--- OUTSIDE RECORDS SUMMARY | 2024-05-23 13:14 | XMS_ITS | Encounter Summary ---
Author Organization [facility] Address [facility] [place] [address] Care Team Providers Care Water Pump Installer Name Role Phone AlfredoCarroll allison Primary Care Provider [phone] Encounter Details Date Type Department Care Team (Late st Contact Info) Description 12/16/2021 2:30 PM EDT Office Visit [place] [address] Odalis Elias MD [facility] [place] [address] ESRD (end stage renal disease) on dialysis [...] face C44.329 ??? 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 intermodal customer service current use of immunosuppressive drug Z79.899 ??? [...] - Denies Functional Status/Social Hx: Lives in [place], Drives Car, Denies Tobacco Use Family Hx: [...] disease documented in this encounter Care Teams Water Pump Installer Relationship Specialty Start Date End Date Carroll Fuentes DO [address] [place] [address] PCP - General 09/23/11 10/20/22 documented as of this encounter
--- OUTSIDE RECORDS SUMMARY | 2024-05-23 13:14 | XMS_ITS | Encounter Summary ---
Author Organization Formerly [facility], [facility] [place] [address] Care Team Providers Care Windlasser Name Role Phone AlfredoCarroll allison Primary Care Provider [phone] Reason for Referral * Diagnostic Test (Routine) - Closed Specialty Diagnoses / Procedures Referred By Shashi ko Referred To Contact Radiology Diagnoses ESRD (end stage renal disease) Procedures IR Dialysis Access - AV Fistula Evaluations Luna Solorio BRUSHER TENDER [facility] [place] [address] [place] [address] Referral ID Status Reason Start Date Expiration Date V isits Requested Visits Authorized [id number] Closed Specialty Service Requested 09/24/2021 03/27/2023 1 1 Encounter Details Date Type Department Care Team (Late st Contact Info) Description 09/24/2021 Orders Only Neph[place] [address] Luna Solorio APRN [facility] [place] [address] ESRD (end stage renal disease) [...] dilated using an 8 mm high pressure CONFERENCE CENTER COORDINATOR balloon (28 gold, 3 minutes). CONFERENCE CENTER COORDINATOR was performed in the outflow limb back [...] was advanced to the arterial anastomosis and CONFERENCE CENTER COORDINATOR performed back the first sheath. The arterial [...] following TPA, balloon maceration, and venous anastomotic CONFERENCE CENTER COORDINATOR. ?? IR Resident: Oliver Andersen MD Attending: Greyson Apple MD (I was present and scrubbed for the entire procedure) I was present during the intraservice time as documented by the IR Nurse. Luna Lopez Lyndsey BRUSHER TENDER IMG IR ORDERABLES documented in this encounter [...] V documented in this encounter Care Teams Windlasser Relationship Specialty Start Date End Date Carroll Fuentes DO [address] [place] [address] PCP - General 09/23/11 10/20/22 documented as of this encounter
--- OUTSIDE RECORDS SUMMARY | 2024-05-23 13:14 | XMS_ITS | Encounter Summary ---
[place] [address] Care Team Providers Care Supervisor Metal Hanging Name Role Phone AlfredoCarroll allison Primary Care Provider [phone] Reason for Referral * Diagnostic Test (Routine) - Closed Specialty Diagnoses / Procedures Referred By Shashi ko Referred To Contact Radiology Diagnoses ESRD (end stage renal disease) Procedures IR Dialysis Access - Tunneled Line Luna Solorio [facility] [place] [address] [place] [address] Referral ID Status Reason Start Date Expiration Date V isits Requested Visits Authorized [id number] Closed Specialty Service Requested 10/07/2022 04/09/2024 1 1 Reason for Visit * Diagnostic Test (Routine) - Closed Specialty Diagnoses / Procedures Referred By Shashi ko Referred To Contact Radiology Diagnoses ESRD (end stage renal disease) Procedures IR Dialysis Access - Tunneled Line Luna Solorio CORPORATE RECYCLING MANAGER [facility] [place] [address] [place] [address] Referral ID Status Reason Start Date Expiration Date V isits Requested Visits Authorized [id number] Closed Specialty Service Requested 10/07/2022 04/09/2024 1 1 Encounter Details Date Type Department Care Team (Latest Contact Info) Description 10/14/2022 8:14 AM EDT - 10/14/2022 11:59 PM EDT Hospital [place] [address] Luna Solorio APRN [facility] [place] [place] [address] ESRD (end stage renal disease) Discharge Disposition: [...] Chang RN - 10/14/2022 10:13 AM EDT [facility] Vascular and Interventional Radiology Discharge Instructions [...] is during regular office hours, please call [phone]. If it is after regular office hours, or on weekends or holidays, please call [phone] and ask to speak to the Geriatric Aide foundation drill operator helper for Interventional Radiology. You have received medication [...] of : 1960 AGE: 62 y.o. Address: [address] [address] Phone: [phone] (home) Mobile: Telephone Information: Referring Provider: Luna Solorio REASON FOR VISIT: Order Questions Answers Where will study be performed? [facility] Radiology [120] Is the patient on [...] face C44.329 ??? 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 terminal operations supervisor current use of immunosuppressive drug Z79.899 ??? [...] IDr. Velez performed this procedure. Luna Solorio CORPORATE RECYCLING MANAGER IMG IR ORDERABLES documented in this encounter Visit Diagnoses Diagnosis ESRD (end stage renal disease) End stage renal disease documented in this encounter Care Teams Supervisor Metal Hanging Relationship Specialty Start Date End Date Carroll Fuentes DO [address] [place] [address] PCP - General 09/23/11 10/20/22 documented as of this encounter
--- OUTSIDE RECORDS SUMMARY | 2024-05-23 13:14 | XMS_ITS | Encounter Summary ---
[place] [address] Care Team Providers Care Refinery Operator Coking Name Role Phone AlfredoCarroll allison Primary Care Provider [phone] Reason for Referral * Diagnostic Test (Routine) - Closed Specialty Diagnoses / Procedures Referred By Shashi ko Referred To Contact Radiology Diagnoses ESRD (end stage renal disease) Procedures IR Dialysis Access - AV Fistula Evaluations Luna Solorio MUSICAL THERAPIST [facility] [place] [address] [place] [address] Referral ID Status Reason Start Date Expiration Date V isits Requested Visits Authorized [id number] Closed Specialty Service Requested 10/02/2021 04/04/2023 1 1 Encounter Details Date Type Department Care Team (Late st Contact Info) Description 10/02/2021 Orders Only [place]ph[place] [address] Luna Solorio APRN [facility] [place] [address] ESRD (end stage renal disease) [...] dialysis graft was accessed and a 7 [place] sheath was placed. Access technique: Micropuncture set with 21 gauge needle Access direction: Toward venous anastomosis Second access Local anesthesia was administered. The dialysis graft was accessed in a second location and a 6 [place] sheath was placed. Access technique: Micropuncture set [...] for clot maceration and displacement. Angioplasty balloon(s): [employer] [employer] Violet 8 mm x 4 cm Findings: There [...] who have questions please contact the health patient care technician that requested your imaging first. ? Electronically signed by: Walt Lin MD, [facility] ([phone]), at 10/11/2021 5:47 PM Narrative 10/11/2021 5:47 [...] The dialysis graft was accessed and a7 [place] sheath was placed. Access technique: Micropuncture set with 21 gauge needle Access direction: Toward venous anastomosis Second access Local anesthesia was administered. The dialysis graft was accessed in asecond location and a 6 [place] sheath was placed. Access technique: Micropuncture set [...] centrally for clot maceration anddisplacement. Angioplasty balloon(s): [place] [employer] Violet 8 mm x 4 cm Findings: There [...] patients who have questions please contactthe health patient care technician that requested your imaging first. Electronically signed by: Walt Lin MD, [facility]([phone]), at 10/11/2021 5:47 PM Luna Isaacoll MUSICAL THERAPIST IMG IR ORDERABLES documented in this encounter Visit Diagnoses Diagnosis ESRD (end stage renal disease) End stage renal disease ESRD (end stage renal disease) on dialysis End stage renal disease ESRD (end stage renal disease) End stage renal disease documented in this encounter Care Teams Refinery Operator Coking Relationship Specialty Start Date End Date aCrroll Fuentes DO [address] [place] [address] PCP - General 09/23/11 10/20/22 documented as of this encounter
--- OUTSIDE RECORDS SUMMARY | 2024-05-23 13:14 | XMS_ITS | Encounter Summary ---
[place] [address] Care Team Providers Care Ostrich Farmer Name Role Phone AlfredoCarroll allison Primary Care Provider [phone] Encounter Details Date Type Department Care Team (Late st Contact Info) Description 11/14/2021 Telephone [place] [address] Mohinder Bravo APRN [facility] [place] [address] Social History Tobacco Use Types Packs/Day Years [...] in the past Received: Today Tessa Flores, FOUNDATION DRILL OPERATOR HELPER sent to Mohinder Bravo APRN Hi Toni, Dean is no longer our patient, but his brother Lucas, who is his guardian states that people in the long-term where his brother lives is testing positive for COVID. ??His brother had a transplant and is now back on dialysis. ??He is asking what treatment he can get for COVID being a kidney recipient. ??His number is [phone]. ??Thanks. Tessa BONNER to Lucas Zavala states he has already talked to Dr. Boyd in Nephrology about this and has received the information he was looking for. He thanked me for returning his call. documented in this encounter Plan of Treatment Not on file documented as of this encounter Visit Diagnoses Not on filedocumented in this encounter Care Teams Ostrich Farmer Relationship Specialty Start Date End Date Carroll Fuentes DO [address] [place] [address] PCP - General 09/23/11 10/20/22 documented as of this encounter
--- OUTSIDE RECORDS SUMMARY | 2024-05-23 13:14 | XMS_ITS | Encounter Summary ---
[place] [address] Care Team Providers Care Electric Organ Inspector And Repairer Name Role Phone AlfredoCarroll allison Primary Care Provider [phone] Reason for Referral * Diagnostic Test (Routine) - Closed Specialty Diagnoses / Procedures Referred By Shashi ko Referred To Contact Radiology Diagnoses ESRD (end stage renal disease) Procedures IR Dialysis Access - Tunneled Line IR Dialysis Access - AV Fistula Evaluations Luna Solorio APR[place] [facility] [address] [facility] [place] [address] Referral ID Status Reason Start Date Expiration Date V isits Requested Visits Authorized [id number] Closed Specialty Service Requested 09/29/2021 04/01/2023 1 1 Encounter Details Date Type Department Care Team (Late st Contact Info) Description 09/29/2021 Orders Only [place] [address] Luna Solorio APRN [facility] [address] ESRD (end stage renal disease) [...] be thrombosed s/p TPA administration, venous anastomosis MANAGER CATH LAB to 8mm and Vel balloon sweep who [...] by the IR Nurse. ?? Luna Solorio LAB ANIMAL TECHNICIAN IMG IR ORDERABLES documented in this encounter Visit Diagnoses Diagnosis ESRD (end stage renal disease) End stage renal disease ESRD (end stage renal disease) End stage renal disease documented in this encounter Care Teams Electric Organ Inspector And Repairer Relationship Specialty Start Date End Date Carroll Fuentes DO [address] [place] [address] PCP - General 09/23/11 10/20/22 documented as of this encounter
--- OUTSIDE RECORDS SUMMARY | 2024-05-23 13:14 | XMS_ITS | Encounter Summary ---
Author Organization Formerly [facility], 1927–[address] [place] [address] Care Team Providers Care Paper Cup Handle Machine Operator Name Role Phone Carroll Fuentes [...] on filedocumented in this encounter Care Teams Paper Cup Handle Machine Operator Relationship Specialty Start Date End Date Carroll Fuentes DO [address] [place] [address] PCP - General 09/23/11 10/20/22 documented as of this encounter
--- OUTSIDE RECORDS SUMMARY | 2024-05-23 13:14 | XMS_ITS | Encounter Summary ---
[place] [address] Care Team Providers Care Automatic Clipper And Stripper Name Role Phone AlfredoCarroll allison Primary Care Provider Reason for Referral * Diagnostic Test (Routine) - Closed Specialty Diagnoses / Procedures Referred By Shashi ko Referred To Contact Radiology Diagnoses ESRD (end stage renal disease) Procedures IR Dialysis Access - AV Fistula Evaluations Luna Solorio [facility] [place] [address] [place] [address] Referral ID Status Reason Start Date Expiration Date V isits Requested Visits Authorized [id number] Closed Specialty Service Requested 10/24/2021 04/25/2023 1 1 Reason for Visit * Diagnostic Test (Routine) - Closed Specialty Diagnoses / Procedures Referred By Shashi ko Referred To Contact Radiology Diagnoses ESRD (end stage renal disease) Procedures IR Dialysis Access - AV Fistula Evaluations Luna Solorio BOY'S ADVISER [facility] [place] [address] [place] [address] Referral ID Status Reason Start Date Expiration Date V isits Requested Visits Authorized [id number] Closed Specialty Service Requested 10/24/2021 04/25/2023 1 1 Encounter Details Date Type Department Care Team (Latest Contact Info) Description 11/05/2021 11:57 AM EDT - 11/05/2021 11:59 PM EDT Hospital [place] [address] Luna Solorio APRN [facility] [place] [address] ESRD (end stage renal disease) Discharge Disposition: [...] Cuenca RN - 11/05/2021 1:29 PM EDT [facility] Vascular and Interventional Radiology Discharge Instructions after [...] is during regular office hours, please call [phone]. If it is after regular office hours, or on weekends or holidays, please call [phone] and ask to speak to the Protocol Manager automation manager for Interventional Radiology. You have received medication [...] of : 1960 AGE: 61 y.o. Address: [place] [address] (home) Mobile: Telephone Information: Referring Provider: Luna Solorio REASON FOR VISIT: Order Questions Answers Where will study be performed? [facility] Radiology [120] Laterality Right Is the patient [...] face C44.329 ??? 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 alf current [...] Value Date PLATELET 175 09/29/2021 * Wilfredo Cuenca RN - 10/31/2021 10:41 AM EDT [facility] Name: CHRISTY AMBROSE Date of : 1960 AGE: 61 y.o. Address: [address] [address] (home) Mobile: Telephone Information: Referring Provider: Luna Solorio REASON FOR VISIT: Order Questions Answers Where will study be performed? [facility] Radiology [120] Laterality Right Is the patient [...] face C44.329 ??? 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 alf current [...] Question Answer Where will study be performed? [facility] Radiology Laterality Right Is the patient on [...] complicated by recurrent clotting, two interventions by [facility] IR in the past month. Most [...] by mouth 2 times daily. 05/05/21 per [facility], patient taking 2 capsules in the [...] face C44.329 ??? 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 roasterman current use of immunosuppressive drug Z79.899 ??? [...] AV Fistula Evaluations 11/30/2019 Sabrina Velez MD [facility] INTERVENTIONL RAD ??? IR DIALYSIS ACCESS - AV FISTULA EVALUATIONS 01/07/2021 IR Dialysis Access - AV Fistula Evaluations 01/07/2021 Sabrina Velez MD [facility] INTERVENTIONL RAD ??? IR DIALYSIS ACCESS - AV FISTULA EVALUATIONS 09/25/2021 IR Dialysis Access - AV Fistula Evaluations 09/25/2021 Kanu Apple MD [facility] INTERVENTIONL RAD ??? IR DIALYSIS ACCESS - AV FISTULA EVALUATIONS 10/10/2021 IR Dialysis Access - AV Fistula Evaluations 10/10/2021 Walt Lin MD [facility] INTERVENTIONL RAD ??? IR DIALYSIS ACCESS - TUNNELED LINE 07/30/2018 IR Dialysis Access - Tunneled Line 07/30/2018 Walt Lin MD [facility] INTERVENTIONL RAD ??? IR DIALYSIS ACCESS - TUNNELED LINE 08/30/2018 IR Dialysis Access - Tunneled Line 08/30/2018 Erwin Simon, CATRACHITO [facility] INTERVENTIONL RAD ??? IR DIALYSIS ACCESS - TUNNELED LINE 12/27/2020 IR Dialysis Access - Tunneled Line 12/27/2020 Kanu Apple MD [facility] INTERVENTIONL RAD ??? IR DIALYSIS ACCESS - TUNNELED LINE 01/23/2021 IR Dialysis Access - Tunneled Line 01/23/2021 Kanu Apple MD [facility] INTERVENTIONL RAD ??? IR DIALYSIS ACCESS - TUNNELED LINE 03/20/2021 IR Dialysis Access - Tunneled Line 03/20/2021 Tab Harmon MD [facility] INTERVENTIONL RAD ??? IR DIALYSIS ACCESS - TUNNELED LINE 09/29/2021 IR Dialysis Access - Tunneled Line 09/29/2021 Tab Harmon MD [facility] INTERVENTIONL RAD ??? IR LINE OR TUBE REMOVAL IN RECOVERY ROOM 07/31/2021 IR Line or Tube Removal in Recovery Room 07/31/2021 [facility] INTERVENTIONL RAD ??? KIDNEY TRANSPLANT KIDNEY TRANSPLANT / RECIPIENT/LT Procedure Date: 11/26/2002 ??? PRO ANASTOMOSIS, AV, ANY SITE Right 05/22/2021 AV FISTULA CREATION, DIRECT HEMODIALYSIS, ANY SITE, EG MADYSON FISTULA LOWER EXTREMITY (WRVU 11.9) performed by Odalis Elias MD at [facility] MAIN OR ??? PRO CREAT AV FISTULA, NON-AUTOGENOUS GRAFT Right 12/13/2018 PLACEMENT, AV HEMODIALYSIS GRAFT, SYNTHETIC GRAFT, UPPER EXTREMITY (WRVU 12.03) performed by Mary Garay MD at [facility] OR ??? PRO CREAT AV FISTULA, NON-AUTOGENOUS GRAFT Left 04/03/2021 PLACEMENT, AV HEMODIALYSIS GRAFT, SYNTHETIC GRAFT, UPPER EXTREMITY (WRVU 12.03) performed by Odalis Elias MD at [facility] OR ? ? PRO DEBRIDEMENT SUBCUTANEOUS TISSUE 20 SQCM/< Left 02/20/2016 DEBRIDEMENT SKIN AND SUBCU, HEAD/NECK performed by Miguel Angel Moreno MD at [facility] OR ??? PRO DECOMPRESS FOREARM, BRACH ART EXPLOR Left 04/06/2018 FASCIOTOMY, FOREARM, WITH BRACHIAL ARTERY EXPLORATION (WRVU 8.41) performed by Lida Peter MDat [facility] OR ??? PRO DIRECT REPAIR RUPTURED ANEURYSM, AXILLO-BRACHIAL ARM INCIS Left 04/06/2018 @REPAIR, RUPTURED AXILLARY OR BRACHIAL ARTERY ANEURYSM BY ARM INCISION (WRVU *) performed by Lida Peter MD at [facility] OR ??? PRO EXC PAROTD, TOTAL, UNILAT RAD NECK Left 02/05/2016 @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, TOTAL, WITH UNILATERAL RADICAL NECK DISSECTION performed by Miguel Angel Moreno MD at [facility] OR ??? PRO EXC SKIN MALIG 3.1-4CM FACE, FACIAL Left 02/05/2016 EXC MALIGNANT LESION, 3.1 TO 4.0CM, FACE performed by Miguel Angel Moreno MD at [facility] OR ? ? PRO EXC SKIN MALIG >4CM TRUNK, ARM, LEG 04/19/2012 EXC MALIGNANT LESION, MICHAEL > 4.0CM, TRUNK performed by SABRINA SANCHEZ at [facility] OR ??? PRO LAP, RADICAL NEPHRECTOMY Left 05/31/2017 @LAPAROSCOPY, RADICAL NEPHRECTOMY (WRVU 25.06) performed by Jax Mills MD at [facility] OR ??? PRO LIGATN ANGIOACCESS AV FISTULA Left 04/19/2018 LIGATION OR BANDING OF HEMODIALYSIS FISTULA OR GRAFT UPPER EXTREMITY (WRVU 6.25) performed by Odalis Elias MD at [facility] OR ??? PRO NEGATIVE PRESSURE WOUND THERAPY, LESS THAN OR EQUAL TO 50 SQCM Left 04/19/2018 DRESSING CHANGE (VAC ASSISTED) UP TO 50SQ.CM (WRVU 0.55) performed by Odalis Elias MD [facility] MAIN OR ??? PRO PHLEB VEINS - EXTREM - TO 20 Right 05/22/2021 STAB PHLEBECTOMY LISBET VEINS 1 EXTREMITY 10-20 INCISIONS (WRVU 7.71) performed by Odalis Elias MD at [facility] MAIN OR ??? PRO REBL VES GRAFT, UP EXTREM Left 04/06/2018 REPAIR BLOOD VESSEL WITH GRAFT OTHER THAN VEIN, UPPER EXTREMITY (WRVU 15.83) performed by Lida Peter MD at [facility] MAIN OR ??? PRO RELIEVE PRESSURE ON NERVE(S) Left 04/06/2018 (MSURG) CARPAL TUNNEL (WRVU 4.82) performed by Silviano Sparks MD at [facility] MAIN OR ??? PRO REPAIR INTERMEDIATE S/A/T/E 2.6-7.5 CM 04/19/2012 REPAIR INTERMEDIATE WOUND, (NO HANDS OR FEET) 2.6 TO 7.5CM, UPPER EXTREMITY performed by SABRINA SANCHEZ at [facility] MAIN OR ? ? PRO REPAIR INTERMEDIATE S/A/T/E > 30.0 CM Left 04/14/2018 REPAIR INTERMEDIATE WOUND, (NO HANDS OR FEET) >30.0CM, UPPER EXTREMITY (WRVU 5) performed by Yimi Easton MD at [facility] MAIN OR ??? PRO REVISE MEDIAN N/CARPAL TUNNEL SURG Left 04/06/2018 MEDIAN NERVE DECOMPRESSION (CARPAL TUNNEL RELEASE) (WRVU 4.97) performed by Lida Peter MD [facility] OR ? ? PRO SPLIT GRFT TRUNK, ARM, LEG <100SQCM Left 04/26/2018 SPLIT THICK SKIN GRAFT,100 SQ CM OR LESS, ARMS (WRVU 9.9) performed by Silviano Sparks MD at [facility] MAIN OR ? ? PRO SPLIT GRFT, HEAD, FAC, HAND, FEET <100SQCM N/A 02/20/2016 SPLIT THICKNESS SKIN SPLIT GRAFT,100SQ CM OR LESS, NECK performed by Miguel Angel Moreno MD at [facility] MAIN OR ??? PRO SPLIT GRFT, TRUNK, ARM, LEG EA 100SQCM N/A 04/26/2018 EA.ADDITIONAL 100SQ.CM STSG (WRVU 1.72) performed by Silviano Sparks MD at [facility] MAIN OR ??? PRO UNLISTED PROCEDURE VASCULAR SURGERY Left 11/20/2015 LIGATION\REPAIR AV FISTULA performed by Camilo Ireland MD at [facility] MAIN OR ??? PRO UNLISTED PROCEDURE VASCULAR SURGERY Left 11/20/2015 EXCISION VEIN FROM HAND performed by Camilo Ireland MD at [facility] MAIN OR ??? PRO UPPER GI ENDOSCOPY, BIOPSY N/A 05/13/2017 EGD WITH BIOPSY (WRVU 2.49) performed by Aditya Barrera MD at [facility] ENDOSCOPY ??? US RENAL TRANSPLANT BIOPSY 12/31/2010 ??? US RENAL TRANSPLANT RIGHT Right 06/04/2018 US Renal Transplant Right 06/04/2018 [facility] RAD ULTRASOUND Social history and habits: Social [...] AVG ?? 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 Outflow venous stenosis persists despite repeated HELICOPTER PILOT, stent placed with resolution ?? Slow flow [...] dialysis graft was accessed and a 7 Tanzanian sheath was placed. Access technique: Micropuncture set with 21 gauge needle Access direction: Toward venous anastomosis Second access Local anesthesia was administered. The dialysis graft was accessed in a second location and a 6 [place]anian sheath was placed. Access technique: Micropuncture set with 21 gauge needle Access direction: Toward arterial anastomosis Intra-procedural thrombolytic injection Thrombolytic was injected within the thrombosed segment of the graft. Thrombolytic agent: tPA Thrombolytic dose: 1 mg Mechanical or aspiration thrombectomy Thrombectomy of the graft and outflow venous segments was performed. Thrombectomy device: Clot maceration and displacement with [place] balloon and Vel catheter Pulling of arterial [...] the venous outflow was performed. Angioplasty balloon(s): [employer] [place] 7 mm ??x 4 cm Findings: Moderate 5 cm long stenotic venous outflow with persistent stenosis despite multiple angioplasties with no residual waist. Angioplasty Angioplasty of the artery graft anastomosis was performed. Angioplasty balloon(s): [employer] [place] 5 mm x 4 cm Findings: Despite multiple balloon dilations without residual waist, there is persistent stenosis on both angiography performed from the arterial side and reflux angiography. Stent placement Stent placement was performed venous outflow distal to prior stent due to recurrent elastic stenosis despite multiple angioplasty attempts. Stent placed: [place] Viabahn Stent type: Covered Stent diameter (mm): [...] who have questions please contact the health transitional care nurse that requested your imaging first. ? Narrative [...] The dialysis graft was accessed and a7 Tanzanian sheath was placed. Access technique: Micropuncture set with 21 gauge needle Access direction: Toward venous anastomosis Second access Local anesthesia was administered. The dialysis graft was accessed in asecond location and a 6 Tanzanian sheath was placed. Access technique: Micropuncture set with 21 gauge needle Access direction: Toward arterial anastomosis Intra-procedural thrombolytic injection Thrombolytic was injected within the thrombosed segment of the graft. Thrombolytic agent: tPA Thrombolytic dose: 1 mg Mechanical or aspiration thrombectomy Thrombectomy of the graft and outflow venous segments was performed. Thrombectomy device: Clot maceration and displacement with [place] balloonand Vel catheter Pulling of arterial plug [...] the venous outflow was performed. Angioplasty balloon(s): [employer] [place] 7 mm x 4 cm Findings: Moderate 5 cm long stenotic venous outflow with persistentstenosis despite multiple angioplasties with no residual waist. Angioplasty Angioplasty of the artery graft anastomosis was performed. Angioplasty balloon(s): [employer] [place] 5 mm x 4 cm Findings: Despite multiple balloon dilations without residual waist, thereis persistent stenosis on both angiography performed from the arterial sideand reflux angiography. Stent placement Stent placement was performed venous outflow distal to prior stent dueto recurrent elastic stenosis despite multiple angioplasty attempts. Stent placed: [place] Viabahn Stent type: Covered Stent diameter (mm): [...] patients who have questions please contactthe health transitional care nurse that requested your imaging first. Luna Solorio BOY'S ADVISER IMG IR ORDERABLES documented in this encounter [...] mLs documented in this encounter Care Teams Automatic Clipper And Stripper Relationship Specialty Start Date End Date Carroll Fuentes DO [address] [place] [address] PCP - General 09/23/11 10/20/22 documented as of this encounter
--- OUTSIDE RECORDS SUMMARY | 2024-05-23 13:14 | XMS_ITS | Encounter Summary ---
Author Organization [facility] Address [place] [address] Care Team Providers Care Silver Lap Machine Tender Name Role Phone Carroll Fuentes DO Primary Care Provider [phone] Encounter Details Date Type Department Care Team (Late st Contact Info) Description 10/24/2021 Notes [place] [address] Veto Goodman PA [facility] [place] [address] Social History Tobacco Use Types Packs/Day Years [...] Question Answer Where will study be performed? [facility] Radiology Laterality Right Is the patient [...] complicated by recurrent clotting, two interventions by [facility] IR in the past month. Most recent [...] by mouth 2 times daily. 05/05/21 per [facility], patient taking 2 capsules in the [...] face C44.329 ??? 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 ferry terminal agent current use of immunosuppressive drug Z79.899 ??? [...] AV Fistula Evaluations 11/30/2019 Sabrina Velez MD [facility] INTERVENTIONL RAD ??? IR DIALYSIS ACCESS - AV FISTULA EVALUATIONS 01/07/2021 IR Dialysis Access - AV Fistula Evaluations 01/07/2021 Sabrina Velez MD [facility] INTERVENTIONL RAD ??? IR DIALYSIS ACCESS - AV FISTULA EVALUATIONS 09/25/2021 IR Dialysis Access - AV Fistula Evaluations 09/25/2021 Kanu Apple MD [facility] INTERVENTIONL RAD ??? IR DIALYSIS ACCESS - AV FISTULA EVALUATIONS 10/10/2021 IR Dialysis Access - AV Fistula Evaluations 10/10/2021 Walt Lin MD [facility] INTERVENTIONL RAD ??? IR DIALYSIS ACCESS - TUNNELED LINE 07/30/2018 IR Dialysis Access - Tunneled Line 07/30/2018 Walt Lin MD [facility] INTERVENTIONL RAD ??? IR DIALYSIS ACCESS - TUNNELED LINE 08/30/2018 IR Dialysis Access - Tunneled Line 08/30/2018 Erwin Simon APRN [facility] INTERVENTIONL RAD ??? IR DIALYSIS ACCESS - TUNNELED LINE 12/27/2020 IR Dialysis Access - Tunneled Line 12/27/2020 Kanu Apple MD [facility] INTERVENTIONL RAD ??? IR DIALYSIS ACCESS - TUNNELED LINE 01/23/2021 IR Dialysis Access - Tunneled Line 01/23/2021 Kanu Apple MD [facility] INTERVENTIONL RAD ??? IR DIALYSIS ACCESS - TUNNELED LINE 03/20/2021 IR Dialysis Access - Tunneled Line 03/20/2021 Tab Harmon MD [facility] INTERVENTIONL RAD ??? IR DIALYSIS ACCESS - TUNNELED LINE 09/29/2021 IR Dialysis Access - Tunneled Line 09/29/2021 Tab Harmon MD [facility] INTERVENTIONL RAD ??? IR LINE OR TUBE REMOVAL IN RECOVERY ROOM 07/31/2021 IR Line or Tube Removal in Recovery Room 07/31/2021 [facility] INTERVENTIONL RAD ??? KIDNEY TRANSPLANT KIDNEY TRANSPLANT / RECIPIENT/LT Procedure Date: 11/26/2002 ??? PRO ANASTOMOSIS, AV, ANY SITE Right 05/22/2021 AV FISTULA CREATION, DIRECT HEMODIALYSIS, ANY SITE, EG MADYSON FISTULA LOWER EXTREMITY (WRVU 11.9) performed by Odalis Elias MD at [facility] MAIN OR ??? PRO CREAT AV FISTULA, NON-AUTOGENOUS GRAFT Right 12/13/2018 PLACEMENT, AV HEMODIALYSIS GRAFT, SYNTHETIC GRAFT, UPPER EXTREMITY (WRVU 12.03) performed by Mary Garay MD at [facility] OR ??? PRO CREAT AV FISTULA, NON-AUTOGENOUS GRAFT Left 04/03/2021 PLACEMENT, AV HEMODIALYSIS GRAFT, SYNTHETIC GRAFT, UPPER EXTREMITY (WRVU 12.03) performed by Odalis Elias MD at [facility] OR ? ? PRO DEBRIDEMENT SUBCUTANEOUS TISSUE 20 SQCM/< Left 02/20/2016 DEBRIDEMENT SKIN AND SUBCU, HEAD/NECK performed by Miguel Angel Moreno MD at [facility] MAIN OR ??? PRO DECOMPRESS FOREARM, BRACH ART EXPLOR Left 04/06/2018 FASCIOTOMY, FOREARM, WITH BRACHIAL ARTERY EXPLORATION (WRVU 8.41) performed by Lida Peter MDat [facility] OR ??? PRO DIRECT REPAIR RUPTURED ANEURYSM, AXILLO-BRACHIAL ARM INCIS Left 04/06/2018 @REPAIR, RUPTURED AXILLARY OR BRACHIAL ARTERY ANEURYSM BY ARM INCISION (WRVU *) performed by Lida Peter MD at [facility] MAIN OR ??? PRO EXC PAROTD, TOTAL, UNILAT RAD NECK Left 02/05/2016 @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, TOTAL, WITH UNILATERAL RADICAL NECK DISSECTION performed by Miguel Angel Moreno MD at [facility] MAIN OR ??? PRO EXC SKIN MALIG 3.1-4CM FACE, FACIAL Left 02/05/2016 EXC MALIGNANT LESION, 3.1 TO 4.0CM, FACE performed by Miguel Angel Moreno MD at [facility] OR ? ? PRO EXC SKIN MALIG >4CM TRUNK, ARM, LEG 04/19/2012 EXC MALIGNANT LESION, MICHAEL > 4.0CM, TRUNK performed by SABRINA SANCHEZ at [facility] OR ??? PRO LAP, RADICAL NEPHRECTOMY Left 05/31/2017 @LAPAROSCOPY, RADICAL NEPHRECTOMY (WRVU 25.06) performed by Jax Mills MD at [facility] OR ??? PRO LIGATN ANGIOACCESS AV FISTULA Left 04/19/2018 LIGATION OR BANDING OF HEMODIALYSIS FISTULA OR GRAFT UPPER EXTREMITY (WRVU 6.25) performed by Odalis Elias MD at [facility] MAIN OR ??? PRO NEGATIVE PRESSURE WOUND THERAPY, LESS THAN OR EQUAL TO 50 SQCM Left 04/19/2018 DRESSING CHANGE (VAC ASSISTED) UP TO 50SQ.CM (WRVU 0.55) performed by Odalis Elias MD [facility] OR ??? PRO PHLEB VEINS - EXTREM - TO 20 Right 05/22/2021 STAB PHLEBECTOMY LISBET VEINS 1 EXTREMITY 10-20 INCISIONS (WRVU 7.71) performed by Odalis Elias MD at [facility] OR ??? PRO REBL VES GRAFT, UP EXTREM Left 04/06/2018 REPAIR BLOOD VESSEL WITH GRAFT OTHER THAN VEIN, UPPER EXTREMITY (WRVU 15.83) performed by Lida Peter MD at [facility] OR ??? PRO RELIEVE PRESSURE ON NERVE(S) Left 04/06/2018 (MSURG) CARPAL TUNNEL (WRVU 4.82) performed by Silviano Sparks MD at [facility] OR ??? PRO REPAIR INTERMEDIATE S/A/T/E 2.6-7.5 CM 04/19/2012 REPAIR INTERMEDIATE WOUND, (NO HANDS OR FEET) 2.6 TO 7.5CM, UPPER EXTREMITY performed by SABRINA SANCHEZ at [facility] MAIN OR ? ? PRO REPAIR INTERMEDIATE S/A/T/E > 30.0 CM Left 04/14/2018 REPAIR INTERMEDIATE WOUND, (NO HANDS OR FEET) >30.0CM, UPPER EXTREMITY (WRVU 5) performed by Yimi Easton MD at [facility] MAIN OR ??? PRO REVISE MEDIAN N/CARPAL TUNNEL SURG Left 04/06/2018 MEDIAN NERVE DECOMPRESSION (CARPAL TUNNEL RELEASE) (WRVU 4.97) performed by Lida Peter MD [facility] MAIN OR ? ? PRO SPLIT GRFT TRUNK, ARM, LEG <100SQCM Left 04/26/2018 SPLIT THICK SKIN GRAFT,100 SQ CM OR LESS, ARMS (WRVU 9.9) performed by Silviano Sparks MD at [facility] MAIN OR ? ? PRO SPLIT GRFT, HEAD, FAC, HAND, FEET <100SQCM N/A 02/20/2016 SPLIT THICKNESS SKIN SPLIT GRAFT,100SQ CM OR LESS, NECK performed by Miguel Angel Moreno MD at [facility] MAIN OR ??? PRO SPLIT GRFT, TRUNK, ARM, LEG EA 100SQCM N/A 04/26/2018 EA.ADDITIONAL 100SQ.CM STSG (WRVU 1.72) performed by Silviano Sparks MD at [facility] MAIN OR ??? PRO UNLISTED PROCEDURE VASCULAR SURGERY Left 11/20/2015 LIGATION\REPAIR AV FISTULA performed by Camilo Ireland MD at [facility] MAIN OR ??? PRO UNLISTED PROCEDURE VASCULAR SURGERY Left 11/20/2015 EXCISION VEIN FROM HAND performed by Camilo Ireland MD at [facility] MAIN OR ??? PRO UPPER GI ENDOSCOPY, BIOPSY N/A 05/13/2017 EGD WITH BIOPSY (WRVU 2.49) performed by Aditya Barrera MD at [facility] ENDOSCOPY ??? US RENAL TRANSPLANT BIOPSY 12/31/2010 ??? US RENAL TRANSPLANT RIGHT Right 06/04/2018 US Renal Transplant Right 06/04/2018 [facility] RAD ULTRASOUND Social history and habits: [...] disease documented in this encounter Care Teams Silver Lap Machine Tender Relationship Specialty Start Date End Date Carroll Fuentes DO [address] [place] [address] PCP - General 09/23/11 10/20/22 documented as of this encounter
--- OUTSIDE RECORDS SUMMARY | 2024-05-23 13:14 | XMS_ITS | Encounter Summary ---
Author Organization Replaced By [facility] Address [facility] [place] [address] Care Team Providers Care Plumbing Instructor Name Role Phone AlfredoCarroll allison Primary Care Provider [phone] Encounter Details Date Type Department Care Team (Late st Contact Info) Description 09/23/2022 External Results [place] [address] Bhargavi Wang, [facility] [place] [address] Social History Tobacco Use Types Packs/Day Years [...] on filedocumented in this encounter Care Teams Plumbing Instructor Relationship Specialty Start Date End Date Carroll Fuentes DO [address] [place] [address] PCP - General 09/23/11 10/20/22 documented as of this encounter
--- OUTSIDE RECORDS SUMMARY | 2024-05-23 13:14 | XMS_ITS | Encounter Summary ---
[place] [address] Care Team Providers Care Strategic Communications Specialist Name Role Phone AlfredoCarroll allison Primary Care Provider [phone] Reason for Referral * Diagnostic Test (Routine) - Closed Specialty Diagnoses / Procedures Referred By Shashi ko Referred To Contact Radiology Diagnoses ESRD (end stage renal disease) Procedures IR Dialysis Access - AV Fistula Evaluations Luna Solorio [facility] [place] [address] [place] [address] Referral ID Status Reason Start Date Expiration Date V isits Requested Visits Authorized [id number] Closed Specialty Service Requested 10/02/2021 04/04/2023 1 1 Reason for Visit * Diagnostic Test (Routine) - Closed Specialty Diagnoses / Procedures Referred By Shashi ko Referred To Contact Radiology Diagnoses ESRD (end stage renal disease) Procedures IR Dialysis Access - AV Fistula Evaluations Luna Solorio DESK INTERVIEWER [facility] [address] [place] [address] Referral ID Status Reason Start Date Expiration Date V isits Requested Visits Authorized [id number] Closed Specialty Service Requested 10/02/2021 04/04/2023 1 1 Encounter Details Date Type Department Care Team (Latest Contact Info) Description 10/10/2021 12:39 PM EDT - 10/10/2021 11:59 PM EDT Hospital [place] [address] Luna Solorio DESK INTERVIEWER [facility] [address] ESRD (end stage renal disease) on dialysis; [...] Blevins RN - 10/10/2021 3:06 PM EDT [facility] Vascular and Interventional Radiology Discharge [...] is during regular office hours, please call [phone]. If it is after regular office hours, or on weekends or holidays, please call [phone] and ask to speak to the Spout Position[employer] vocational rehabilitation administrator for Interventional Radiology. You have received medication [...] of : 1960 AGE: 61 y.o. Address: [address] [address] (home) Mobile: Telephone Information: Referring Provider: Luna Solorio REASON FOR VISIT: Order Questions Answers Where will study be performed? [facility] Radiology [120] Laterality Right Is the patient [...] face C44.329 ??? 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 remote computer [...] Clean and dry.-jpm 194 Pt transported to [facility] to waiting scoop driver, Moises. jpm 2039 Report to Leslie CORRALES @ [facility] Laboratory Results: Lab Results Component Value [...] Questions Answers Where will study be performed? [facility] Radiology [120] Laterality Right Is the patient [...] be thrombosed s/p TPA administration, venous anastomosis [employer] to 8mm and Vel balloon sweep who [...] by mouth 2 times daily. 05/05/21 per [facility], patient taking 2 capsules in the [...] face C44.329 ??? 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 nursing home [...] AV Fistula Evaluations 11/30/2019 Sabrina Velez MD [facility] INTERVENTIONL RAD ??? IR DIALYSIS ACCESS - AV FISTULA EVALUATIONS 01/07/2021 IR Dialysis Access - AV Fistula Evaluations 01/07/2021 Sabrina Velez MD [facility] RAD ??? IR DIALYSIS ACCESS - AV FISTULA EVALUATIONS 09/25/2021 IR Dialysis Access - AV Fistula Evaluations 09/25/2021 Kanu Apple MD [facility] INTER[facility] RAD ??? IR DIALYSIS ACCESS - TUNNELED LINE 07/30/2018 IR Dialysis Access - Tunneled Line 07/30/2018 Walt Lin MD [facility] INTERVENTION[facility] RAD ??? IR DIALYSIS ACCESS - TUNNELED LINE 08/30/2018 IR Dialysis Access - Tunneled Line 08/30/2018 Erwin Simon, [employer] [facility] INTERVENTIONL RAD ??? IR DIALYSIS ACCESS - TUNNELED LINE 12/27/2020 IR Dialysis Access - Tunneled Line 12/27/2020 Kanu Apple MD [facility] INTER[facility] RAD ??? IR DIALYSIS ACCESS - TUNNELED LINE 01/23/2021 IR Dialysis Access - Tunneled Line 01/23/2021 Kanu Apple MD [facility] INTERVENT[facility] RAD ??? IR DIALYSIS ACCESS - TUNNELED LINE 03/20/2021 IR Dialysis Access - Tunneled Line 03/20/2021 Tab Harmon MD [facility] INTER[facility] RAD ??? IR LINE OR TUBE REMOVAL IN RECOVERY ROOM 07/31/2021 IR Line or Tube Removal in Recovery Room 07/31/2021 [facility] INTER[facility] RAD ??? KIDNEY TRANSPLANT KIDNEY TRANSPLANT / RECIPIENT/LT Procedure Date: 11/26/2002 ??? PRO ANASTOMOSIS, AV, ANY SITE Right 05/22/2021 AV FISTULA CREATION, DIRECT HEMODIALYSIS, ANY SITE, EG MADYSON FISTULA LOWER EXTREMITY (WRVU 11.9) performed by Odalis Elias MD at [facility] MAIN OR ??? PRO CREAT AV FISTULA, NON-AUTOGENOUS GRAFT Right 12/13/2018 PLACEMENT, AV HEMODIALYSIS GRAFT, SYNTHETIC GRAFT, UPPER EXTREMITY (WRVU 12.03) performed by Mary Garay MD at [facility] OR ??? PRO CREAT AV FISTULA, NON-AUTOGENOUS GRAFT Left 04/03/2021 PLACEMENT, AV HEMODIALYSIS GRAFT, SYNTHETIC GRAFT, UPPER EXTREMITY (WRVU 12.03) performed by Odalis Elias MD at [facility] MAIN OR ? ? PRO DEBRIDEMENT SUBCUTANEOUS TISSUE 20 SQCM/< Left 02/20/2016 DEBRIDEMENT SKIN AND SUBCU, HEAD/NECK performed by Miguel Angel Moreno MD at [facility] MAIN OR ??? PRO DECOMPRESS FOREARM, BRACH ART EXPLOR Left 04/06/2018 FASCIOTOMY, FOREARM, WITH BRACHIAL ARTERY EXPLORATION (WRVU 8.41) performed by Lida Peter, MDat [facility] MAIN OR ??? PRO DIRECT REPAIR RUPTURED ANEURYSM, AXILLO-BRACHIAL ARM INCIS Left 04/06/2018 @REPAIR, RUPTURED AXILLARY OR BRACHIAL ARTERY ANEURYSM BY ARM INCISION (WRVU *) performed by Lida Peter MD at [facility] MAIN OR ??? PRO EXC PAROTD, TOTAL, UNILAT RAD NECK Left 02/05/2016 @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, TOTAL, WITH UNILATERAL RADICAL NECK DISSECTION performed by Miguel Angel Moreno MD at [facility] MAIN OR ??? PRO EXC SKIN MALIG 3.1-4CM FACE, FACIAL Left 02/05/2016 EXC MALIGNANT LESION, 3.1 TO 4.0CM, FACE performed by Miguel Angel Moreno MD at [facility] MAIN OR ? ? PRO EXC SKIN MALIG >4CM TRUNK, ARM, LEG 04/19/2012 EXC MALIGNANT LESION, MICHAEL > 4.0CM, TRUNK performed by SABRINA SANCHEZ at [facility] OR ??? PRO LAP, RADICAL NEPHRECTOMY Left 05/31/2017 @LAPAROSCOPY, RADICAL NEPHRECTOMY (WRVU 25.06) performed by Jax Mills MD at [facility] OR ??? PRO LIGATN ANGIOACCESS AV FISTULA Left 04/19/2018 LIGATION OR BANDING OF HEMODIALYSIS FISTULA OR GRAFT UPPER EXTREMITY (WRVU 6.25) performed by Odalis Elias MD at [facility] MAIN OR ??? PRO NEGATIVE PRESSURE WOUND THERAPY, LESS THAN OR EQUAL TO 50 SQCM Left 04/19/2018 DRESSING CHANGE (VAC ASSISTED) UP TO 50SQ.CM (WRVU 0.55) performed by Odalis Elias MD [facility] MAIN OR ??? PRO PHLEB VEINS - EXTREM - TO 20 Right 05/22/2021 STAB PHLEBECTOMY LISBET VEINS 1 EXTREMITY 10-20 INCISIONS (WRVU 7.71) performed by Odalis Elias MD at [facility] MAIN OR ??? PRO REBL VES GRAFT, UP EXTREM Left 04/06/2018 REPAIR BLOOD VESSEL WITH GRAFT OTHER THAN VEIN, UPPER EXTREMITY (WRVU 15.83) performed by Lida Peter MD at [facility] MAIN OR ??? PRO RELIEVE PRESSURE ON NERVE(S) Left 04/06/2018 (MSURG) CARPAL TUNNEL (WRVU 4.82) performed by Silviano Sparks MD at [facility] MAIN OR ??? PRO REPAIR INTERMEDIATE S/A/T/E 2.6-7.5 CM 04/19/2012 REPAIR INTERMEDIATE WOUND, (NO HANDS OR FEET) 2.6 TO 7.5CM, UPPER EXTREMITY performed by SABRINA SANCHEZ at [facility] MAIN OR ? ? PRO REPAIR INTERMEDIATE S/A/T/E > 30.0 CM Left 04/14/2018 REPAIR INTERMEDIATE WOUND, (NO HANDS OR FEET) >30.0CM, UPPER EXTREMITY (WRVU 5) performed by Yimi Easton MD at [facility] MAIN OR ??? PRO REVISE MEDIAN N/CARPAL TUNNEL SURG Left 04/06/2018 MEDIAN NERVE DECOMPRESSION (CARPAL TUNNEL RELEASE) (WRVU 4.97) performed by Lida Peter MD [facility] MAIN OR ? ? PRO SPLIT GRFT TRUNK, ARM, LEG <100SQCM Left 04/26/2018 SPLIT THICK SKIN GRAFT,100 SQ CM OR LESS, ARMS (WRVU 9.9) performed by Silviano Sparks MD at [facility] MAIN OR ? ? PRO SPLIT GRFT, HEAD, FAC, HAND, FEET <100SQCM N/A 02/20/2016 SPLIT THICKNESS SKIN SPLIT GRAFT,100SQ CM OR LESS, NECK performed by Miguel Angel Moreno MD at [facility] OR ??? PRO SPLIT GRFT, TRUNK, ARM, LEG EA 100SQCM N/A 04/26/2018 EA.ADDITIONAL 100SQ.CM STSG (WRVU 1.72) performed by Silviano Sparks MD at [facility] MAIN OR ??? PRO UNLISTED PROCEDURE VASCULAR SURGERY Left 11/20/2015 LIGATION\REPAIR AV FISTULA performed by Camilo Ireland MD at [facility] MAIN OR ??? PRO UNLISTED PROCEDURE VASCULAR SURGERY Left 11/20/2015 EXCISION VEIN FROM HAND performed by Camilo Ireland MD at [facility] MAIN OR ??? PRO UPPER GI ENDOSCOPY, BIOPSY N/A 05/13/2017 EGD WITH BIOPSY (WRVU 2.49) performed by Aditya Barrera MD at [facility] ENDOSCOPY ??? US RENAL TRANSPLANT BIOPSY 12/31/2010 ??? US RENAL TRANSPLANT RIGHT Right 06/04/2018 US Renal Transplant Right 06/04/2018 [facility] RAD ULTRASOUND Social history and habits: [...] Questions Answers Where will study be performed? [facility] Radiology [120] Laterality Right Is the patient [...] be thrombosed s/p TPA administration, venous anastomosis [employer] to 8mm and Vel balloon sweep who [...] face C44.329 ??? 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 nursing home [...] AV Fistula Evaluations 11/30/2019 Sabrina Velez MD [facility] INTER[facility] RAD ??? IR DIALYSIS ACCESS - AV FISTULA EVALUATIONS 01/07/2021 IR Dialysis Access - AV Fistula Evaluations 01/07/2021 Sabrina Velez MD [facility] RAD ??? IR DIALYSIS ACCESS - AV FISTULA EVALUATIONS 09/25/2021 IR Dialysis Access - AV Fistula Evaluations 09/25/2021 Kanu Apple MD [facility] INTER[facility] RAD ??? IR DIALYSIS ACCESS - TUNNELED LINE 07/30/2018 IR Dialysis Access - Tunneled Line 07/30/2018 Walt Lin MD [facility] INTER[facility] RAD ??? IR DIALYSIS ACCESS - TUNNELED LINE 08/30/2018 IR Dialysis Access - Tunneled Line 08/30/2018 Erwin Simon, [employer] [facility] INTERVENT[facility] RAD ??? IR DIALYSIS ACCESS - TUNNELED LINE 12/27/2020 IR Dialysis Access - Tunneled Line 12/27/2020 Kanu Apple MD [facility] INTER[facility] RAD ??? IR DIALYSIS ACCESS - TUNNELED LINE 01/23/2021 IR Dialysis Access - Tunneled Line 01/23/2021 Kanu Apple MD [facility] INTER[facility] RAD ??? IR DIALYSIS ACCESS - TUNNELED LINE 03/20/2021 IR Dialysis Access - Tunneled Line 03/20/2021 Tab Harmon MD [facility] INTER[facility] RAD ??? IR LINE OR TUBE REMOVAL IN RECOVERY ROOM 07/31/2021 IR Line or Tube Removal in Recovery Room 07/31/2021 [facility] INTER[facility] RAD ??? KIDNEY TRANSPLANT KIDNEY TRANSPLANT / RECIPIENT/LT Procedure Date: 11/26/2002 ??? PRO ANASTOMOSIS, AV, ANY SITE Right 05/22/2021 AV FISTULA CREATION, DIRECT HEMODIALYSIS, ANY SITE, EG MADYSON FISTULA LOWER EXTREMITY (WRVU 11.9) performed by Odalis Elias MD at [facility] MAIN OR ??? PRO CREAT AV FISTULA, NON-AUTOGENOUS GRAFT Right 12/13/2018 PLACEMENT, AV HEMODIALYSIS GRAFT, SYNTHETIC GRAFT, UPPER EXTREMITY (WRVU 12.03) performed by Mary Garay MD at [facility] MAIN OR ??? PRO CREAT AV FISTULA, NON-AUTOGENOUS GRAFT Left 04/03/2021 PLACEMENT, AV HEMODIALYSIS GRAFT, SYNTHETIC GRAFT, UPPER EXTREMITY (WRVU 12.03) performed by Odalis Elias MD at [facility] MAIN OR ? ? PRO DEBRIDEMENT SUBCUTANEOUS TISSUE 20 SQCM/< Left 02/20/2016 DEBRIDEMENT SKIN AND SUBCU, HEAD/NECK performed by Miguel Angel Moreno MD at [facility] OR ??? PRO DECOMPRESS FOREARM, BRACH ART EXPLOR Left 04/06/2018 FASCIOTOMY, FOREARM, WITH BRACHIAL ARTERY EXPLORATION (WRVU 8.41) performed by Lida Peter MDat [facility] OR ??? PRO DIRECT REPAIR RUPTURED ANEURYSM, AXILLO-BRACHIAL ARM INCIS Left 04/06/2018 @REPAIR, RUPTURED AXILLARY OR BRACHIAL ARTERY ANEURYSM BY ARM INCISION (WRVU *) performed by Lida Peter MD at [facility] OR ??? PRO EXC PAROTD, TOTAL, UNILAT RAD NECK Left 02/05/2016 @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, TOTAL, WITH UNILATERAL RADICAL NECK DISSECTION performed by Miguel Angel Moreno MD at [facility] OR ??? PRO EXC SKIN MALIG 3.1-4CM FACE, FACIAL Left 02/05/2016 EXC MALIGNANT LESION, 3.1 TO 4.0CM, FACE performed by Miguel Angel Moreno MD at [facility] OR ? ? PRO EXC SKIN MALIG >4CM TRUNK, ARM, LEG 04/19/2012 EXC MALIGNANT LESION, MICHAEL > 4.0CM, TRUNK performed by SABRINA SANCHEZ at [facility] OR ??? PRO LAP, [...] 7.71) performed by Odalis Elias MD at [facility] OR ??? PRO REBL VES GRAFT, UP EXTREM Left 04/06/2018 REPAIR BLOOD VESSEL WITH GRAFT OTHER THAN VEIN, UPPER EXTREMITY (WRVU 15.83) performed by Lida Peter MD at [facility] MAIN OR ??? PRO RELIEVE PRESSURE ON NERVE(S) Left 04/06/2018 (MSURG) CARPAL TUNNEL (WRVU 4.82) performed by Silviano Sparks MD at [facility] MAIN OR ??? PRO REPAIR INTERMEDIATE S/A/T/E 2.6-7.5 CM 04/19/2012 REPAIR INTERMEDIATE WOUND, (NO HANDS OR FEET) 2.6 TO 7.5CM, UPPER EXTREMITY performed by SABRINA SANCHEZ at [facility] OR ? ? PRO REPAIR INTERMEDIATE S/A/T/E > 30.0 CM Left 04/14/2018 REPAIR INTERMEDIATE WOUND, (NO HANDS OR FEET) >30.0CM, UPPER EXTREMITY (WRVU 5) performed by Yimi Easton MD at [facility] MAIN OR ??? PRO REVISE MEDIAN N/CARPAL TUNNEL SURG Left 04/06/2018 MEDIAN NERVE DECOMPRESSION (CARPAL TUNNEL RELEASE) (WRVU 4.97) performed by Lida Peter MD [facility] OR ? ? PRO SPLIT GRFT TRUNK, ARM, LEG <100SQCM Left 04/26/2018 SPLIT THICK SKIN GRAFT,100 SQ CM OR LESS, ARMS (WRVU 9.9) performed by Silviano Sparks MD at [facility] MAIN OR ? ? PRO SPLIT GRFT, HEAD, FAC, HAND, FEET <100SQCM N/A 02/20/2016 SPLIT THICKNESS SKIN SPLIT GRAFT,100SQ CM OR LESS, NECK performed by Miguel Angel Moreno MD at [facility] MAIN OR ??? PRO SPLIT GRFT, TRUNK, ARM, LEG EA 100SQCM N/A 04/26/2018 EA.ADDITIONAL 100SQ.CM STSG (WRVU 1.72) performed by Silviano Sparks MD at [facility] MAIN OR ??? PRO UNLISTED PROCEDURE VASCULAR SURGERY Left 11/20/2015 LIGATION\REPAIR AV FISTULA performed by Camilo Ireland MD at [facility] MAIN OR ??? PRO UNLISTED PROCEDURE VASCULAR SURGERY Left 11/20/2015 EXCISION VEIN FROM HAND performed by Camilo Ireland MD at [facility] MAIN OR ??? PRO UPPER GI ENDOSCOPY, BIOPSY N/A 05/13/2017 EGD WITH BIOPSY (WRVU 2.49) performed by Aditya Barrera MD at [facility] ENDOSCOPY ??? US RENAL TRANSPLANT BIOPSY 12/31/2010 ??? US RENAL TRANSPLANT RIGHT Right 06/04/2018 US Renal Transplant Right 06/04/2018 [facility] RAD ULTRASOUND Social history and habits: [...] dialysis graft was accessed and a 7 Mexican sheath was placed. Access technique: Micropuncture set with 21 gauge needle Access direction: Toward venous anastomosis Second access Local anesthesia was administered. The dialysis graft was accessed in a second location and a 6 [place] sheath was placed. Access technique: Micropuncture set [...] angiography from the superficial femoral artery showed hoahaoism of patency of the graft and outflow [...] for clot maceration and displacement. Angioplasty balloon(s): [employer] [place] 8 mm x 4 cm Findings: There [...] who have questions please contact the health nurse wound care that requested your imaging first. ? [...] The dialysis graft was accessed and a7 Mexican sheath was placed. Access technique: Micropuncture set with 21 gauge needle Access direction: Toward venous anastomosis Second access Local anesthesia was administered. The dialysis graft was accessed in asecond location and a 6 [place] sheath was placed. Access technique: Micropuncture set [...] repeat angiography from the superficial femoral arteryshowed hoahaoism of patency of the graft and outflow [...] centrally for clot maceration anddisplacement. Angioplasty balloon(s): [employer] [place] 8 mm x 4 cm Findings: There [...] patients who have questions please contactthe health nurse wound care that requested your imaging first. Luna Solorio APRN IMG IR ORDERABLES * (ABNORMAL) Potassium (10/10/2021 1:12 PM EDT) Potassium 5.3(H) 3.5 - 5.0 mmol/L [facility] [...] Agency Comment Spec In Lab Luna Solorio DESK INTERVIEWER CHEMISTRY ORDERAB LES [facility] [place] [address] documented in this encounter Visit Diagnoses Diagnosis [...] mg documented in this encounter Care Teams Strategic Communications Specialist Relationship Specialty Start Date End Date Carroll Fuentes DO [address] [place] [address] PCP - General 09/23/11 10/20/22 documented as of this encounter
--- OUTSIDE RECORDS SUMMARY | 2024-05-23 13:14 | XMS_ITS | Encounter Summary ---
Author Organization [facility] Address [facility] [place] [address] Care Team Providers Care Inspector Hairspring Truing Name Role Phone Ileana Azevedo CATRACHITO Primary Care Provider [phone] Reason for Visit * Auth/Cert (Routine) Specialty Diagnoses / Procedures Referred By Shashi ko Referred To Contact Diagnoses Hyperkalemia HYPERKALEMIA-WEAKNESS & DIZZINESS [place] [address] [facility] Referral ID Status Reason Start Date Expiration Date Visits Re quested Visits Authorized [id number] 1 1 Encounter Details Date Type Department Care Team (Latest Contact Info) Description 10/19/2022 5:24 PM EDT - 10/21/2022 3:25 PM EDT Hospital Encounter Medical Specialites Unit Level 1 [place] [address] Jasmyne Dawkins MD [place], [place] [id number] [place] [address] ESRD (end stage renal disease) on dialysis (Primary Dx); Hyperkalemia Discharge Disposition: Detention Facility Social History Tobacco [...] on Keppra, gout, and hypertension??who presented to [facility] after a fall, found macarena hypotensive and hyperkalemic, transferred to [facility] and admitted on 10/19/2022 for higher level of care. Follow-up Recommendations for Providers: - Adama had borderline hypotension upon initial arrival to , and was found to be hypotensive at OSH before transfer. After dialysis, his blood pressures remained stable mostly in the 110's-130's systolic. Home Losartan and Coreg was recently discontinued for hypotension he had been having at his assisted living facility, [place]. Please continue to follow his blood pressure at scheduled PCP follow-up appointment and can consider a cardiology referral. - Adama required inpatient dialysis during admission. His labs were trended and remained stable while here, potassium 4.8 on day of discharge. Please follow this as he continues his regular scheduled dialysis treatments Wednesday, , Wednesday at [place]. - Anayeli, head nurse at [facility], notes an observed decline recently where he [...] ??? Weight loss ??? 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 custodial current use of immunosuppressive drug ??? H/O [...] yo male presenting as a transfer from [facility]. Presented there for hypotension to the 80s/50s, [...] assessment is limited as he resides in [place] and only speaks with Adama over the phone. Adama has lived at the [facility] since 2019, but on my interview [...] Brother, Lucas, is DPOA and lives in [place]. Spoke with Lucas on 10/20 and [place] limits his perception/knowledge of his true day to day functional and cognitive status, although does state that he believes he has had more of a cognitive decline in the recent months. Had a long discussion with Anayeli, the head nurse at [facility], who states he has been falling more [...] setting.Later learned after talking with Anayeli at [facility] that he is not taking these meds [...] free. Discharge to: home (assisted living facility [facility]) Discharge Medications: Your Medications New Medications Dose Details vitamin B Complex-vitamin C-folic Acid 0.8 mg Tab Commonly known as: Tania-julio Take 1 tablet by mouth daily. Start [...] You fell out of your wheelchair at [facility] and you were taken to [facility] where you were found to have low blood pressure and high potassium. You were transferred to [facility] for further care, and received inpatient dialysis with close electrolyte monitoring. Nephrology did not need to plan any further dialysis as an inpatient, and therefore you are being discharged with the plan to return to your regular schedule of Wednesday, , Wednesday dialysis at [place]. Call your doctor or seek medical attention [...] Your Primary Care Provider: Ileana Azevedo APRN [phone] For questions regarding this document or issues relating to this hospitalization on the Medical Service, please contact your inpatient physician through the [facility] Medical Pathologist . Issues afterhours and on weekends will be handled by the Hospitalist staff on-call. General Instructions None Provider Contact Information: Ileana Azevedo APRN [address] / [facility] [address] Discharge References/Attachments: Discharge References/Attachments Renal Disease: End-Stage Diet (Cypriot) documented in this encounter Discharge Instructions * Patient Instructions* Joann Thurman MD - 10/21/2022 2:10 PM EDT Instructions on Discharge to Home Why you were hospitalized - You fell out of your wheelchair at [facility] and you were taken to [facility] where you were found to have low blood pressure and high potassium. You were transferred to [facility] for further care, and received inpatient dialysis with close electrolyte monitoring. Nephrology did not need to plan any further dialysis as an inpatient, and therefore you are being discharged with the plan to return to your regular schedule of Wednesday, , Wednesday dialysis at [place]. Call your doctor or seek medical attention [...] MD Your Primary Care Provider: Ileana Azevedo, SUPERVISOR [employer] PLACING [phone] For questions regarding this document or issues relating to this hospitalization on the Medical Service, please contact your inpatient physician through the [facility] Medical Pathologist . Issues afterhours and on weekends will be handled by the Hospitalist staff on-call. * Attachments The following attachments cannot be sent through Care Everywhere. * Renal Disease: End-Stage Diet (Cypriot) documented in this encounter Medications at Time [...] 10/21/2022 3:25 PM EDT Office of Care Management/Windows Software Developer Patient Name: Adama Ram : 1960 Patient has been offered an [facility] bed at [facility]. RCT arranged for a 1530hrs transport. Ambulance will need: Medicare ambulance form completed and signed (MD or Endoscopy Registered Nurse RN/TELEVISION WRITER) Copy of patient demographics [place] or [place] Out of Hospital DNR/DNI order, if active No MD to MD report necessary. Please call Nursing Report to , ask for medical insurance coding specialist. Info to accompany patient: Copies of Medication Administration Records and IV sheets for past 10 days. Plan: Windows Software Developer will be available to the patient and Endoscopy Registered Nurse-RN and/or Social Workerfor further assistance. Patient will be discharged to: [facility] [address] [address] Burak Mendez Windows Software Developer * Burak Mendez - 10/21/2022 3:25 PM EDT Office of Care Management/Windows Software Developer Name: Adama Ram Presenting Issue: Outpatient Dialysis Update Notified [facility] HD unit that patient is scheduled for discharge soon. The dialysis unit is ready for the patient on 10/23/22. The patient will have a schedule of MWF at their regular on-time. Plan: Discharge Summary and last acute dialysis records will be faxed to the medical insurance coding specialist upon discharge. This office will be available to the patient, Endoscopy Registered Nurse-RN and Transportation Sales Consultant for further assistance. Dialysis Unit Address: [address] [address] Burak Mendez Windows Software Developer * Latonia Oshea RN - 10/21/2022 3:23 [...] from the original note were not included. [facility] NEPHROLOGY/HYPERTENSION DIALYSIS PROGRESS NOTE PATIENT: Adama Ram [...] Blood Gas) No results for input(s): PHART, AWR5NQB, PO2ART, DWF8MTH, LACTATEVEN, ERH1QKX, PFRATIOART2 in the last 168 hours. VBG (Venous Blood Gas) No results for input(s): PHVEN, KKS5RIU, PO2VEN, OQO4BYT, LACTATEVEN in the last 168 hours. Mixed Venous Sat No results for input(s): Z9SLAA6 in the last 168 hours. LFT's: Recent Labs 10/19/221957 BILITOT 0.5 ALBUMIN 4.0 ALKPHOS 122 ALT 10 AST 16 Prot/Cre Ratio Date Value Ref Range Status 07/19/2018 16.3 ratio Final No results found for: TPROTEINPEP, ALBELECT No results found for: MICROALBUR, QFBJ29HGA Lab Results Component Value Date HA1C 5.4 [...] M.P.H., M.H.A. PGY-IV Nephrology-Hypertension Fellow Page # [phone] [facility] [address] 2nd floor, Gun Welder [address] [place] [address] Associated attestation - Crystal Mcdermott MD - 10/22/2022 8:50 AM EDT The patient was seen and examined with the nephrology fellow. Please see the nephrology fellow's note from today for details. I have reviewed the fellow's note and agree with the exam, and assessmentand plan. Crystal Mcdermott MD Nephrology Pager: [phone] * Susanna Robertson RN - 10/21/2022 11:08 AM EDT This RNCM called to confirm HD chair availability. Per family and patient -this [facility]. Icalled [facility] and patient has a chair confirmed for Wednesday// and Saturdays for on time of 11:05. The Patient/ representataive (brother-Lucas Ram (DPOA)- have accepted resumption of care to [facility]. Patient requests resumption of care referral to : [facility] [address] [facility] [place] [address] P: [phone] F: [phone] Expected date of discharge: 10/21/22. Referral routed to the Windows Software Developer for matching with agency/vendor and to provide any required information. Susanna Robertson RN, Pager-[phone] * Radha Otto - 10/21/2022 10:25 AM [...] - Tunneled Line 10/14/2022 Sabrina Velez MD [facility] [...] 11.9) performed by Odalis Elias MD at [facility] OR ??? PRO CREAT AV FISTULA, NON-AUTOGENOUS GRAFT Right 12/13/2018 PLACEMENT, AV HEMODIALYSIS GRAFT, SYNTHETIC GRAFT, UPPER EXTREMITY (WRVU 12.03) performed by Mary Garay MD at [facility] OR ??? PRO CREAT AV FISTULA, NON-AUTOGENOUS GRAFT Left 04/03/2021 PLACEMENT, AV HEMODIALYSIS GRAFT, SYNTHETIC GRAFT, UPPER EXTREMITY (WRVU 12.03) performed by Odalis Elias MD at [facility] OR ? ? PRO DEBRIDEMENT SUBCUTANEOUS TISSUE 20 SQCM/< Left 02/20/2016 DEBRIDEMENT SKIN AND SUBCU, HEAD/NECK performed by Miguel Angel Moreno MD at [facility] OR ??? PRO DECOMPRESS FOREARM, BRACH ART EXPLOR Left 04/06/2018 FASCIOTOMY, FOREARM, WITH BRACHIAL ARTERY EXPLORATION (WRVU 8.41) performed by Lida Peter MDat [facility] OR ??? PRO DIRECT REPAIR RUPTURED ANEURYSM, AXILLO-BRACHIAL ARM INCIS Left 04/06/2018 @REPAIR, RUPTURED AXILLARY OR BRACHIAL ARTERY ANEURYSM BY ARM INCISION (WRVU *) performed by Lida Peter MD at [facility] OR ??? PRO EXC PAROTD, TOTAL, UNILAT RAD NECK Left 02/05/2016 @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, TOTAL, WITH UNILATERAL RADICAL NECK DISSECTION performed by Miguel Angel Moreno MD at [facility] OR ??? PRO EXC SKIN MALIG 3.1-4CM FACE, FACIAL Left 02/05/2016 EXC MALIGNANT LESION, 3.1 TO 4.0CM, FACE performed by Miguel Angel Moreno MD at [facility] OR ? ? PRO EXC SKIN MALIG >4CM TRUNK, ARM, LEG 04/19/2012 EXC MALIGNANT LESION, MICHAEL > 4.0CM, TRUNK performed by SABRINA SANCHEZ at [facility] OR ??? PRO LAP, RADICAL NEPHRECTOMY Left 05/31/2017 @LAPAROSCOPY, RADICAL NEPHRECTOMY (WRVU 25.06) performed by Jax Mills MD at [facility] MAIN OR ??? PRO LIGATN [...] (WRVU 0.55) performed by Odalis Elias MD [facility] MAIN OR ??? PRO PHLEB VEINS - EXTREM - TO 20 Right 05/22/2021 STAB PHLEBECTOMY LISBET VEINS 1 EXTREMITY 10-20 INCISIONS (WRVU 7.71) performed by Odalis Elias MD at [facility] MAIN OR ??? PRO REBL VES GRAFT, UP EXTREM Left 04/06/2018 REPAIR BLOOD VESSEL WITH GRAFT OTHER THAN VEIN, UPPER EXTREMITY (WRVU 15.83) performed by Lida Peter MD at [facility] MAIN OR ??? PRO RELIEVE PRESSURE ON NERVE(S) Left 04/06/2018 (MSURG) CARPAL TUNNEL (WRVU 4.82) performed by Silviano Sparks MD at [facility] MAIN OR ??? PRO REPAIR INTERMEDIATE S/A/T/E 2.6-7.5 CM 04/19/2012 REPAIR INTERMEDIATE WOUND, (NO HANDS OR FEET) 2.6 TO 7.5CM, UPPER EXTREMITY performed by SABRINA SANCHEZ at [facility] MAIN OR [...] (WRVU 4.97) performed by Lida Peter MD [facility] MAIN OR ? ? PRO SPLIT GRFT [...] FISTULA performed by Camilo Ireland MD at [facility] OR ??? PRO UNLISTED PROCEDURE VASCULAR SURGERY [...] 06/04/2018 [facility] RAD ULTRASOUND Social History: Home Setup: Pt [...] can help with anything in reference to CADEN assistance Objective: Seen today for OT evaluation. [...] to be at his functional baseline. Recommend [facility] continue to provide assist with IADLs, medication [...] Total Minutes, Occupational Therapy: 24 (low complexity 0992-7295) OT Evaluation Code Rationale: ?? Diagnosis & [...] session performed and note written with this designer/writer. Please do not hesitate to contact this designer/writer with any questions, thank you. Dee Dee Wood OT Pager #[phone] Inpatient Rehabilitation * Joann Thurman MD - 10/21/2022 6:19 AM EDT [facility] Team Inpatient Progress Note Patient Info: Name: Adama Ram : 1960 Attending Provider: Jeana Beach MD ID: Adama Ram is a 62 y.o. 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 Active Hospital Problems Diagnosis ??? Hyperkalemia Resolved Hospital Problems No resolved problems to display. Interval History: Yesterday: - dialysis, potassium 5.6 during - checked tacrolimus level (6.1), decreased dosing - talked to pt's brother and head nurse at [facility] about his neuro history and baseline mental [...] Keppra, gout, and hypertension who presented to [facility] aftera fall, found to be hypotensive and hyperkalemic, transferred to [facility] and admitted on 10/19/2022 ( Hospital Day [...] Brother, Lucas, is DPOA and lives in [place]. Spoke with Lucas on 10/20 and his physical distance from Adama limits his perception/knowledge of [facility] day to day functional and cognitive status, although does state that he believes he has had more of a cognitive decline in the recent months. 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 He would not find his current physical limitations to be an acceptable quality of life and therefore would not want CPR, but would be okay with all pre-arrest care. # Dispo: back to [facility] assisted [facility], medically ready Joann Thurman MD PGY-1, Anesthesiology 10/21/2022 [place] Team - Pager [phone] Associated attestation - Jeana Beach MD - [...] session performed and note written with this designer/writer. Please do not hesitate to contact this designer/writer with any questions, thank you. Dee Dee Wood OT Pager #[phone] Inpatient Rehabilitation * Elida Kanu M, PT [...] - Tunneled Line 10/14/2022 Sabrina Velez MD [facility] [...] by Mary Garay MD at [facility] OR ??? PRO CREAT AV FISTULA, NON-AUTOGENOUS GRAFT Left 04/03/2021 PLACEMENT, AV HEMODIALYSIS GRAFT, SYNTHETIC GRAFT, UPPER EXTREMITY (WRVU 12.03) performed by Odalis Elias MD at [facility] OR ? ? PRO DEBRIDEMENT SUBCUTANEOUS TISSUE 20 SQCM/< Left 02/20/2016 DEBRIDEMENT SKIN AND SUBCU, HEAD/NECK performed by Miguel Angel Moreno MD at [facility] OR ??? PRO DECOMPRESS FOREARM, BRACH ART EXPLOR Left 04/06/2018 FASCIOTOMY, FOREARM, WITH BRACHIAL ARTERY EXPLORATION (WRVU 8.41) performed by Lida Peter MDat [facility] OR ??? PRO DIRECT REPAIR RUPTURED ANEURYSM, [...] Angel Moreno MD at [facility] OR ??? PRO EXC SKIN MALIG 3.1-4CM FACE, FACIAL Left 02/05/2016 EXC MALIGNANT LESION, 3.1 TO 4.0CM, FACE performed by Miguel Angel Moreno MD at [facility] OR ? ? PRO EXC SKIN MALIG >4CM TRUNK, ARM, LEG 04/19/2012 EXC MALIGNANT LESION, MICHAEL > 4.0CM, TRUNK performed by SABRINA SANCHEZ at [facility] MAIN OR ??? PRO LAP, RADICAL NEPHRECTOMY Left 05/31/2017 @LAPAROSCOPY, RADICAL NEPHRECTOMY (WRVU 25.06) performed by Jax Mills MD at [facility] OR ??? PRO LIGATN ANGIOACCESS AV FISTULA Left 04/19/2018 LIGATION OR BANDING OF HEMODIALYSIS FISTULA OR GRAFT UPPER EXTREMITY (WRVU 6.25) performed by Odalis Elias MD at [facility] MAIN OR ??? PRO NEGATIVE PRESSURE WOUND THERAPY, LESS THAN OR EQUAL TO 50 SQCM Left 04/19/2018 DRESSING CHANGE (VAC ASSISTED) UP TO 50SQ.CM (WRVU 0.55) performed by Odalis Elias MD [facility] OR ??? PRO PHLEB VEINS - EXTREM - TO 20 Right 05/22/2021 STAB PHLEBECTOMY LISBET VEINS 1 EXTREMITY 10-20 INCISIONS (WRVU 7.71) performed by Odalis Elias MD at [facility] MAIN OR ??? PRO REBL VES GRAFT, UP EXTREM Left 04/06/2018 REPAIR BLOOD VESSEL WITH GRAFT OTHER THAN VEIN, UPPER EXTREMITY (WRVU 15.83) performed by Lida Peter MD at [facility] OR ??? PRO RELIEVE PRESSURE ON NERVE(S) Left 04/06/2018 (MSURG) CARPAL TUNNEL (WRVU 4.82) performed by Silviano Sparks MD at [facility] OR ??? PRO REPAIR INTERMEDIATE S/A/T/E 2.6-7.5 CM 04/19/2012 REPAIR INTERMEDIATE WOUND, (NO HANDS OR FEET) 2.6 TO 7.5CM, UPPER EXTREMITY performed by SABRINA SANCHEZ at [facility] MAIN OR [...] (WRVU 4.97) performed by Lida Peter MD [facility] MAIN OR ? ? PRO SPLIT GRFT [...] 06/04/2018 [facility] RAD ULTRASOUND Active Non-Hospital Problems Diagnosis ??? [...] ??? Weight loss ??? 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 custodial current use of immunosuppressive drug ??? H/O [...] lives at an [facility] living facility in [facility]. He has a roommate will call [...] Also enjoys going on walks into [place] [facility] when the weather is nice. Equipment at [...] BUEs Gait: Distance: 150' Device used: personal STEMpowerkidsing poles Level of assist: contact guard assist [...] therapy goals for discharge to return to [facility] when medically appropriate. Will place patient on [...] in this evaluation. Time IN / OUT: 8333-5554 Total Minutes, Physical Therapy: 22 Billing Code: Eval, Low Complexity Kanu Marrero, PT, DPT Pager: [phone] Physical Therapy Inpatient Rehabilitation Department * Joann Thurman MD - 10/20/2022 6:43 AM EDT [facility] Team Inpatient Progress Note Patient Info: Name: Adama Ram : 1960 Attending Provider: Jasmyne Dawkins MD ID: Adama Ram is a 62 y.o. 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 heparin (porcine) 5,000 Units Subcutaneous Q8H [facility] PRN medications acetaminophen Current Facility-Administered Medications Medication [...] Keppra, gout, and hypertension who presented to [facility] aftera fall, found to be hypotensive and hyperkalemic, transferred to [facility] and admitted on 10/19/2022 ( Hospital Day [...] hyperkalemia. Brother is DPOA and lives in [place]. Will look for medical records and try [...] pending Joann Thurman MD PGY-1, Anesthesiology 10/20/2022 [place] Team - Pager [phone] documented in this encounter H&P Notes * Cammy Winters MD - 10/19/2022 5:53 PM EDT [facility] Department of Internal Medicine Inpatient History and Physical Note Patient info: Adama Ram 1960 [id number] Carroll Fuentes DO Date of Admission: 10/19/2022 ( Hospital Day 1 day ) Attending: Dr. Beach Service: Medicine Source: patient Chief Complaint: No chief complaint on file. Patient ID: Adama Ram is a 62 y.o. 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 History of Present Illness: Adama Ram is a 62 yo male presenting as a transfer from [facility]. Presented there for hypotension to the 80s/50s, [...] February 2022, [place] was able to [place] to [place] their mother, and that he's noticed a substantial decline in his memory since July of this year. Lucas admits that his assessment is limited as he resides in [place] and only speaks with Adama over the phone. Adama has lived at the [facility] since 2018, but on my interview [...] - Tunneled Line 10/14/2022 Sabrina Velez MD [facility] [...] by Mary Garay MD at [facility] OR ??? PRO CREAT AV FISTULA, NON-AUTOGENOUS [...] (WRVU 8.41) performed by Lida Peter MDat [facility] MAIN OR ??? PRO DIRECT [...] 4.0CM, TRUNK performed by SABRINA SANCHEZ at [facility] MAIN OR ??? PRO LAP, RADICAL NEPHRECTOMY Left 05/31/2017 @LAPAROSCOPY, RADICAL NEPHRECTOMY (WRVU 25.06) performed by Jax Mills MD at [facility] MAIN OR ??? PRO LIGATN [...] (WRVU 0.55) performed by Odalis Elias MD [facility] MAIN OR ??? PRO PHLEB VEINS - EXTREM - TO 20 Right 05/22/2021 STAB PHLEBECTOMY LISBET VEINS 1 EXTREMITY 10-20 INCISIONS (WRVU 7.71) performed by Odalis Elias MD at [facility] MAIN OR ??? PRO REBL VES GRAFT, UP EXTREM Left 04/06/2018 REPAIR BLOOD VESSEL WITH GRAFT OTHER THAN VEIN, UPPER EXTREMITY (WRVU 15.83) performed by Lida Peter MD at [facility] MAIN OR ??? PRO RELIEVE PRESSURE ON NERVE(S) Left 04/06/2018 (MSURG) CARPAL TUNNEL (WRVU 4.82) performed by Silviano Sparks MD at [facility] MAIN OR ??? PRO REPAIR INTERMEDIATE S/A/T/E 2.6-7.5 CM 04/19/2012 REPAIR INTERMEDIATE WOUND, (NO HANDS OR FEET) 2.6 TO 7.5CM, UPPER EXTREMITY performed by SABRINA SANCHEZ at [facility] MAIN OR [...] (WRVU 4.97) performed by Lida Peter MD [facility] MAIN OR ? ? PRO SPLIT GRFT [...] 06/04/2018 [facility] RAD ULTRASOUND Medication History: No outpatient medications [...] Not on file Occupational History ??? Occupation: [employer] at [employer] Tobacco Use ??? Smoking status: [...] Keppra, gout, and hypertension who presented to [facility] after a fall, found to be hypotensive and hyperkalemic, transferred to [facility] for higher level of care. Fortunately, Adama's hypotension has improved and stabilized and his potassium has normalized. Will continue to monitor potassium closely. Consulting Nephrology for dialysis, though no indication for urgent dialysis at the moment. If his potassium remains normal, imagine he can probably have dialysis on Wednesday as according to his normal schedule. Will continue home meds and supportive care in [place] [facility] Gaining a better understanding of his recent [...] Referrals & Follow-up Care: Resumption of care [facility] [address] [facility] [address] [facility] [address] [place] [address] P: [phone] F: [phone] Transportation: RCT- Confirmed transport for 1530 (nursing [...] [place] Prescription Coverage: Yes I have called [facility] to confirm HD chair and update on discharge plan. I have called Fannie at [facility] ([place]) to update on discharge time. [facility] requesting signed d/c summary to be sent with patient (nursing aware). Team updated on transport time. I have updated facility on discharge time. I have updated the facility ([place]) on medication adjustments Per Facility ([place]) request. Per MD Earl via secure chat- tacrolimus was decreased to 1 mg twice a day; Renavite will be added -facility will not be able to get Renavite until Wednesday10/23/22-( aware via secure chat); Losartan and carvedilol will be discontinued. Updated medication information was given to [facility] ([facility]) per facility request via phone conversation. This plan was formulated with input from patient, above facilities and team. All are in agreement with plan. I have verbally reviewed Medicare Discharge Rights with patient. Patient verbalizes understanding of right to appeal this discharge if feeling not medically ready. Offered a copy of this letter. Susanna Robertson RN, Pager-[phone] * Plan of Care - Crystal Isidro [...] COVID test: Lab Results Component Value Date [id number] Not Detected 05/22/2021 Past medical History: Past [...] surrogate would be surrogate decision maker per [place] surrogate decision making law. (Only good for 180 days) Any patient receiving care in [place] must abide by [place] law. The hierarchy for surrogate decision making [...] (i) The agent with financial power of cake press operator or a conservator appointed in accordance [...] (see comments) (depending on needs) Home Address: [address] [address] Social & Family Supports: All names listed below confirmed with patient as current and correct Extended Emergency Contact Information Primary Emergency Contact: Lucas Ram Address: [address] [place] [address] [place] Anto[place] [address] [facility] Mobile Relation: Sibling Secondary Emergency Contact: Yenifer Frausto Address: [address] [place] [address] Mobile Relation: Aunt/Uncle Current Care Provided by: [...] likely Other Pertinent/Service Specific Information: Dialysis at [facility] per patient Health/Prescription Coverage: Primary Insurance: MEDICARE Payor: MEDICARE / Plan: MEDICARE PART A & B / Product Type: *No Product type* / Secondary Insurance: MEDICAID [place] ONLY if patient has Medicare A&B - Does this patient have secondary insurance?: Yes ; Prescription Coverage: Yes Preferred Pharmacy: [id number] - [facility], [place] - [address] [facility] [address] [facility] [id number] [facility] - [place], [place] - [address] [place] [address] Panther Status: Patient is a : No Primary Care Provider: Carroll Fuentes DO [phone] Patient/Caregiver Goals of Treatment: Feel better and go home Potential Needs for Transition of Care: none Agency Referrals: 1) [address] [address] 2) [facility] [address] [place] [address] P: [phone] F: [phone] Transportation: no concerns Transportation Anticipated: family or friend will provide Concerns to be Addressed: discharge planning Assessment: Patient is admitted to Hospital Medicine service for Hyperkalemia Plan: A member of the Care Management team will continue to monitor progress, follow for continuity of care and assist with transition of care planning. Karis Kunz RN [facility] Endoscopy Registered Nurse/Medicine Office of Care Management Pager: [phone] * Consult Note - Steffi Moise RD - 10/20/2022 3:47 PM EDT Nutrition Consult Note Adama J Leanna is a 62 y.o. 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 [place] Body Weight (IBW) (kg): 80.5 Wt Readings [...] while inpatient THANKS Steffi Moise RD Pager #:[phone] * Consult Note - Didier Louis MD - 10/20/2022 7:37 AM EDT Images from the original note were not included. [facility] NEPHROLOGY/HYPERTENSION DIALYSIS CONSULT NOTE PATIENT: Adama Ram : 1960 Carroll Fuentes DO REASON FOR CONSULTATION: ESRD Management HPI: Adama Ram is a 62 yo male presenting as a transfer from [facility]. Presented there for hypotension to the 80s/50s, was found to have a potassium of 6.1, and was subsequently transferred here due to concern that he may need urgent dialysis and/or higher level of care. Patient normally dialyzes at the [facility] in [facility]. 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 [...] Blood Gas) No results for input(s): PHART, PPT0TDC, PO2ART, FRK7VPO, LACTATEVEN, SWD7XIL, PFRATIOART2 in the last 168 hours. VBG (Venous Blood Gas) No results for input(s): PHVEN, JFV4UGR, PO2VEN, LYK2BSJ, LACTATEVEN in the last 168 hours. Mixed Venous Sat No results for input(s): M3KXUO6 in the last 168 hours. LFT's: Recent Labs 10/19/221957 BILITOT 0.5 ALBUMIN 4.0 ALKPHOS 122 ALT 10 AST 16 Prot/Cre Ratio Date Value Ref Range Status 07/19/2018 16.3 ratio Final No results found for: TPROTEINPEP, ALBELECT No results found for: MICROALBUR, [id number] Lab Results Component Value Date HA1C 5.4 [...] M.P.H., M.H.A. PGY-IV Nephrology-Hypertension Fellow Page # [phone] [facility] [address] [facility] [address] 2nd floor, Gun Welder [address] [place] [phone] Associated attestation - Crystal Mcdermott MD - [...] or access. Crystal Mcdermott MD Nephrology Pager: [phone] * Plan of Care - Katt Riley RN - 10/20/2022 1:56 AM EDT OUTCOME EVALUATION NOTE: OUTCOME SUMMARY: Pt. Transferred from [facility]. No orders when assumed care at [...] emergency but not to be used otherwise. 3100- paged for nursing communication where it is [...] Cell 5.8 4.0 - 9.5 x10(3)/mc L [facility] Red Blood Cell 3.72(L) 4.58 - 5.54 x10(6)/mc L [facility] Hemoglobin 12.1(L) 13.7 - 16.5 g/dL [facility] Hematocrit 36.2(L) 40.5 - 48.5 % [facility] Mean Cell Volume 97.3(H) 82.9 - 93.1 fL [facility] Mean Cell Hemoglobin 32.5(H) 27.5 - 32.1 pg [facility] Mean Cell Hemoglobin Concentration 33.4 32.0 - 35.7 g/dL [facility] Platelet 181 145 - 357 x10(3)/mc L [facility] RDW Standard Deviation 47.4(H) 36.0 - 45.0 fL [facility] RDW coefficient of variation 13.2 11.4 - 13.8 % [facility] Mean Platelet Volume 8.6 7.6 - 12.9 fL [facility] NRBC% auto 0.0 % [facility] NRBC Absolute 0.000 0.000 - 0.000 x10(3)/mc L [facility] Blood 10/21/2022 7:47 AM EDT 10/21/2022 7:50 AM EDT Narrative Resulting Agency Comment Spec In Lab Jasmyne Dawkins MD HEMATOLOGY ORDERABLE S Performing Organization Address City/State/[facility] Co de Phone Number [facility] [place] [address] * (ABNORMAL) Basic Metabolic Panel (non-fasting) (10/21/2022 7:47 AM EDT) Glucose 99 65 - 199 mg/dL [facility] Comment:Diabetes: >=200 mg/d L plus symptoms Blood Urea Nitrogen 29(H) 10 - 20 mg/dL [facility] Creatinine 6.68(H) 0.80 - 1.50 mg/dL [facility] Comment:result rechecked-imm Sodium 134(L) 135 - 145 mmol/L [facility] Potassium 4.8 3.5 - 5.0 mmol/L [facility] Comment: Please note: ??Patients with WBC >100,000 may have falsely elevated Potassium levels. ??For accurate Potassium quantification in these patients send serum separator tube (gold top) for subsequent determinations. ??Contact the Clinical Chemistry Laboratory if there are any questions. Chloride 94(L) 98 - 107 mmol/L [facility] Carbon Dioxide 26 22 - 31 mmol/L [facility] Anion Gap 14 5 - 15 mmol/L [facility] Calcium 8.7 8.5 - 10.5 mg/dL [facility] Est Glomerular Filtration Rate 9(L) >=60 mL/min/1. 73 m?? [facility] Comment: This patient's estimated GFR [...] Dawkins MD CHEMISTRY ORDERABLES Performing Organization Address [facility] Co de Phone Number [facility] [place] [address] * Magnesium (10/21/2022 7:47 AM EDT) Magnesium 0.79 0.69 - 1.07 mmol/L [facility] Blood 10/21/2022 7:47 AM EDT 10/21/2022 7:51 AM EDT Narrative Resulting Agency Comment Spec In Lab Jasmyne Dawkins MD CHEMISTRY ORDERABLES Performing Organization Address [facility] Co de Phone Number [facility] [place] [address] * Phosphorus (10/21/2022 7:47 AM EDT) Phosphorus 4.1 2.5 - 4.5 mg/dL [facility] Blood 10/21/2022 7:47 AM EDT 10/21/2022 7:51 AM EDT Narrative Resulting Agency Comment Spec In Lab Jasmyne Dawkins MD CHEMISTRY ORDERABLES Performing Organization Address [facility] Co de Phone Number [facility] [place] [address] * Tacrolimus level (10/20/2022 11:22 AM EDT) Pathologist [facility] Tacrolimus 6.1 ng/mL [facility] Comment: Trough therapeutic range is [...] Beach MD CHEMISTRY ORDERABLES Performing Organization Address City/[facility]/ZIP Co de Phone Number [facility] [place] [address] * Green Tube HOLD (10/20/2022 10:53 AM EDT) [facility] Green Hold Sample in lab. [facility] Blood Venous Draw / Unknown 10/20/2022 10:53 AM EDT 10/20/2022 11:04 AM EDT Kanu Earl MD CHEMISTRY ORDERABLES Performing Organization Address City/[facility]/ZIP Co de Phone Number [facility] [place] [address] * Blood culture (10/20/2022 10:53 AM EDT) [facility] Blood Culture No growth at 5 days. [facility] Blood 10/20/2022 10:5 3 AM EDT 10/20/2022 11:21 AM EDT Comment:Draw from peripheral IV......Draw From HD(central) Catheter Narrative Resulting Agency Comment Spec In Lab Jeana Beach MD MICROBIOLOGY - BLOOD ORDERABLES Performing Organization Address City/[facility]/ZIP Co de Phone Number [facility] [place] [address] * Vitamin B12 (10/20/2022 10:53 AM EDT) Vitamin B12 803 232 - 1,245 pg/mL [facility] Blood 10/20/2022 10:5 3 AM EDT 10/20/2022 11:03 AM EDT Narrative Resulting Agency Comment Spec In Lab Jeana Beach MD CHEMISTRY ORDERABLES Performing Organization Address City/[facility]/ZIP Co de Phone Number [facility] [place] [address] * (ABNORMAL) Hemogram (10/20/2022 9:05 AM EDT) Pathologist [facility] White Blood Cell 5.1 4.0 - 9.5 x10(3)/mc L [facility] Red Blood Cell 3.27(L) 4.58 - 5.54 x10(6)/mc L [facility] Hemoglobin 10.5(L) 13.7 - 16.5 g/dL [facility] Hematocrit 32.2(L) 40.5 - 48.5 % [facility] Mean Cell Volume 98.5(H) 82.9 - 93.1 fL [facility] Mean Cell Hemoglobin 32.1 27.5 - 32.1 pg [facility] Mean Cell Hemoglobin Concentration 32.6 32.0 - 35.7 g/dL [facility] Platelet 166 145 - 357 x10(3)/mc L [facility] RDW Standard Deviation 48.1(H) 36.0 - 45.0 fL [facility] RDW coefficient of variation 13.3 11.4 - 13.8 % [facility] Mean Platelet Volume 9.1 7.6 - 12.9 fL [facility] NRBC% auto 0.0 % [facility] NRBC Absolute 0.000 0.000 - 0.000 x10(3)/mc L [facility] Blood Venous Draw / Unknown 10/20/2022 9:05 AM EDT 10/20/2022 9:25 AM EDT Narrative Resulting Agency Comment Spec In Lab Cammy Winters MD HEMATOLOGY ORDERABLE S Performing Organization Address City/[facility]/ZIP Co de Phone Number [facility] [place] [address] * Phosphorus (10/20/2022 9:05 AM EDT) Phosphorus 3.5 2.5 - 4.5 mg/dL [facility] Blood Venous Draw / Unknown 10/20/2022 9:05 AM EDT 10/20/2022 9:21 AM EDT Narrative Resulting Agency Comment Spec In Lab Cammy Winters MD CHEMISTRY ORDERABLES Performing Organization Address City/[facility]/ZIP Co de Phone Number [facility] [place] [address] * Magnesium (10/20/2022 9:05 AM EDT) Magnesium 0.88 0.69 - 1.07 mmol/L [facility] Blood Venous Draw / Unknown 10/20/2022 9:05 AM EDT 10/20/2022 9:21 AM EDT Narrative Resulting Agency Comment Spec In Lab Cammy Winters MD CHEMISTRY ORDERABLES Performing Organization Address [facility] Co de Phone Number [facility] [place] [address] * (ABNORMAL) Basic Metabolic Panel (non-fasting) (10/20/2022 9:05 AM EDT) Glucose 116 65 - 199 mg/dL [facility] Comment:Diabetes: >=200 mg/d L plus symptoms Blood Urea Nitrogen 49(H) 10 - 20 mg/dL [facility] Creatinine 9.82(H) 0.80 - 1.50 mg/dL [facility] Sodium 142 135 - 145 mmol/L [facility] Potassium 5.6(H) 3.5 - 5.0 mmol/L [facility] Comment: Please note: ??Patients with WBC >100,000 may have falsely elevated Potassium levels. ??For accurate Potassium quantification in these patients send serum separator tube (gold top) for subsequent determinations. ??Contact the Clinical Chemistry Laboratory if there are any questions. Chloride 98 98 - 107 mmol/L [facility] Carbon Dioxide 31 22 - 31 mmol/L [facility] Anion Gap 13 5 - 15 mmol/L [facility] Calcium 8.5 8.5 - 10.5 mg/dL [facility] Est Glomerular Filtration Rate 6(L) >=60 mL/min/1. 73 m?? [facility] Comment: This patient's estimated GFR [...] Dawkins MD CHEMISTRY ORDERABLES Performing Organization Address [facility] Co de Phone Number [facility] [place] [address] * EKG 12 Lead (10/19/2022 8:05 PM EDT) Ventricular rate 57 BPM MUSE SYSTEM Atrial Rate 57 BPM MUSE SYSTEM P-R Interval 160 ms MUSE SYSTEM QRS Duration 80 ms MUSE SYSTEM Q-T Interval 438 ms MUSE SYSTEM QTC Calculated (Bezet) 426 ms MUSE SYSTEM Calculated P Lanse 66 degrees MUSE SYSTEM Calculated R Lanse 41 degrees MUSE SYSTEM Calculated T Lanse 61 degrees MUSE SYSTEM INTERPRETATION Sinus bradycardia Low voltage QRS Borderline ECG When compared with ECG of 29-SEP-2021 18:31, No significant change was found Confirmed by DMITRY, ??GREGORIO JONES ([id number]) on 10/21/2022 5:50:36 AM MUSE SYSTEM 10/19/2022 8:05 PM EDT 10/21/2022 5:50 AM EDT Jasmyne Dawkins MD ECG ORDERABLES Performing Organization Address City/[facility] Co de Phone Number MUSE SYSTEM * Differential, Automated (10/19/2022 7:58 PM EDT) Neutrophil % 59.6 % [facility] Neutrophil Absolute 3.67 1.70 - 6.10 x10(3)/[facility] Lymph % 26.9 % [facility] Lymphocytes Abs 1.7 0.9 - 3.2 x10(3)/[facility] Monocyte % 9.3 % [facility] Monocyte Abs 0.6 0.3 - 0.9 x10(3)/[facility] Eos % 3.2 % [facility] Eosinophils Abs 0.2 0.0 - 0.4 x10(3)/[facility] Basophil % 0.8 % [facility] Baso Absolute 0.0 0.0 - 0.1 x10(3)/[facility] Immature Gran % 0.20 % [facility] Comment: Immature granulocytes(IG's)percentage and absolute count will include metamyelocytes, myelocytes, and promyelocytes. Blood smears from CBCs yielding IG's will be scanned manually for concordance. If this scan disagrees with the automated IG or if promyelocytes are noted, a manual differential will be performed. Immature Gran Absolute 0.01 0.00 - 0.04 x10(3)/[facility] Blood 10/19/2022 7:58 PM EDT 10/19/2022 8:08 PM EDT Narrative Resulting Agency Comment Spec In Lab Cammy Winters MD HEMATOLOGY ORDERABLE S [facility] [place] [address] * (ABNORMAL) Hemogram (10/19/2022 7:58 PM EDT) White Blood Cell 6.2 4.0 - 9.5 x10(3)/mc L [facility] Red Blood Cell 3.53(L) 4.58 - 5.54 x10(6)/mc L [facility] Hemoglobin 11.4(L) 13.7 - 16.5 g/dL [facility] Hematocrit 34.5(L) 40.5 - 48.5 % [facility] Mean Cell Volume 97.7(H) 82.9 - 93.1 fL [facility] Mean Cell Hemoglobin 32.3(H) 27.5 - 32.1 pg [facility] Mean Cell Hemoglobin Concentration 33.0 32.0 - 35.7 g/dL [facility] Platelet 179 145 - 357 x10(3)/mc L [facility] RDW Standard Deviation 48.8(H) 36.0 - 45.0 fL [facility] RDW coefficient of variation 13.6 11.4 - 13.8 % [facility] Mean Platelet Volume 9.0 7.6 - 12.9 fL [facility] NRBC% auto 0.0 % [facility] NRBC Absolute 0.000 0.000 - 0.000 x10(3)/mc L [facility] Blood 10/19/2022 7:58 PM EDT 10/19/2022 8:08 PM EDT Narrative Resulting Agency Comment Spec In Lab Cammy Winters MD HEMATOLOGY ORDERABLE S Performing Organization Address City/[facility] Co de Phone Number [facility] [place] [address] * TSH [place] (10/19/2022 7:58 PM EDT) Thyroid Stimulating Hormone 1.45 0.27 - 4.20 mcIU/mL [facility] Comment: Reference Interval (mcIU/mL): Females: ??First Trimester: 0.23-3.88 ??Second Trimester: 0.22-3.90 ??Third Trimester: 0.44-4.66 Blood 10/19/2022 7:58 PM EDT 10/19/2022 8:08 PM EDT Narrative Resulting Agency Comment Spec In Lab Jasmyne Dawkins MD CHEMISTRY ORDERABLES [facility] [place] [address] * Magnesium (10/19/2022 7:58 PM EDT) Magnesium 0.96 0.69 - 1.07 mmol/L [facility] Blood 10/19/2022 7:58 PM EDT 10/19/2022 8:08 PM EDT Narrative Resulting Agency Comment Spec In Lab Jasmyne Dawkins MD CHEMISTRY ORDERABLES [facility] [place] [address] * (ABNORMAL) Comprehensive metabolic panel (non-fasting) (10/19/2022 7:58 PM EDT) Glucose 101 65 - 199 mg/dL [facility] Comment:Diabetes: >=200 mg/d L plus symptoms Blood Urea Nitrogen 46(H) 10 - 20 mg/dL [facility] Creatinine 9.50(H) 0.80 - 1.50 mg/dL [facility] Sodium 144 135 - 145 mmol/L [facility] Potassium 4.9 3.5 - 5.0 mmol/L [facility] Comment: Please note: ??Patients with WBC >100,000 may have falsely elevated Potassium levels. ??For accurate Potassium quantification in these patients send serum separator tube (gold top) for subsequent determinations. ??Contact the Clinical Chemistry Laboratory if there are any questions. Chloride 98 98 - 107 mmol/L [facility] Carbon Dioxide 29 22 - 31 mmol/L [facility] Anion Gap 17(H) 5 - 15 mmol/L [facility] Calcium 9.1 8.5 - 10.5 mg/dL [facility] Protein, Total 6.7 6.1 - 8.0 g/dL [facility] Albumin 4.0 3.2 - 5.2 g/dL [facility] Aspartate Aminotransferase 16 0 - 39 unit/L [facility] Alanine Aminotransferase 10 0 - 55 unit/L [facility] Alkaline Phosphatase 122 40 - 130 unit/L [facility] Bilirubin, Total 0.5 0.2 - 1.3 mg/dL [facility] Est Glomerular Filtration Rate 6(L) >=60 mL/min/1. 73 m?? [facility] Comment: This patient's estimated GFR [...] In Lab Jasmyne Dawkins MD CHEMISTRY ORDERABLES [facility] [address] documented in this encounter Visit Diagnoses Diagnosis [...] Riley RN) 0621 (Given - Provider: Crystal Iisdro, SAVANNA) pantoprazole EC (Protonix) tablet 20 mg [...] Viki Marino RN)2006 (Given - Provider: Crystal Isdiro RN) 0843 (Given - Provider: Latonia Oshea, [...] Isidro RN) 0843 (Given - Provider: Latonia Oshea RN) vitamin B Complex-vitamin C-folic Acid [...] Routine documented in this encounter Care Teams Inspector Hairspring Truing Relationship Specialty Start Date End Date Ileana Azevedo APRN [address] [place] [address] PCP - General Family Medicine 10/21/22 documented as of this encounter
--- OUTSIDE RECORDS SUMMARY | 2024-05-23 13:14 | XMS_ITS | Encounter Summary ---
Author Organization [facility] Address [facility] [place] [address] Care Team Providers Care Director Of District Office Name Role Phone Carroll Fuentes DO Primary Care Provider [phone] Encounter Details Date Type Department Care Team (Late st Contact Info) Description 09/24/2022 Orders [place] [address] Mallory Caballero PA [facility] [place] [address] Social History Tobacco Use Types Packs/Day Years [...] face C44.329 ??? 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 half-way current use of immunosuppressive drug Z79.899 ??? [...] AV Fistula Evaluations 11/30/2019 Sabrina Velez MD [facility] INTERVENTIONL RAD ??? IR DIALYSIS ACCESS - AV FISTULA EVALUATIONS 01/07/2021 IR Dialysis Access - AV Fistula Evaluations 01/07/2021 Sabrina Velez MD [facility] INTERVENTIONL RAD ??? IR DIALYSIS ACCESS - AV FISTULA EVALUATIONS 09/25/2021 IR Dialysis Access - AV Fistula Evaluations 09/25/2021 Kanu Apple MD [facility] INTERVENTIONL RAD ??? IR DIALYSIS ACCESS - AV FISTULA EVALUATIONS 10/10/2021 IR Dialysis Access - AV Fistula Evaluations 10/10/2021 Walt Lin MD [facility] INTERVENTIONL RAD ??? IR DIALYSIS ACCESS - AV FISTULA EVALUATIONS 11/05/2021 IR Dialysis Access - AV Fistula Evaluations 11/05/2021 Walt Lin MD [facility] INTERVENTIONL RAD ??? IR DIALYSIS ACCESS - TUNNELED LINE 07/30/2018 IR Dialysis Access - Tunneled Line 07/30/2018 Walt Lin MD [facility] INTERVENTIONL RAD ??? IR DIALYSIS ACCESS - TUNNELED LINE 08/30/2018 IR Dialysis Access - Tunneled Line 08/30/2018 Erwin Simon APRN [facility] INTERVENTIONL RAD ??? IR DIALYSIS ACCESS - TUNNELED LINE 12/27/2020 IR Dialysis Access - Tunneled Line 12/27/2020 Kanu Apple MD [facility] INTERVENTIONL RAD ??? IR DIALYSIS ACCESS - TUNNELED LINE 01/23/2021 IR Dialysis Access - Tunneled Line 01/23/2021 Kanu Apple MD [facility] INTERVENTIONL RAD ??? IR DIALYSIS ACCESS - TUNNELED LINE 03/20/2021 IR Dialysis Access - Tunneled Line 03/20/2021 Tab Harmon MD [facility] INTERVENTIONL RAD ??? IR DIALYSIS ACCESS - TUNNELED LINE 09/29/2021 IR Dialysis Access - Tunneled Line 09/29/2021 Tab Harmon MD [facility] INTERVENTIONL RAD ??? IR LINE OR TUBE REMOVAL IN RECOVERY ROOM 07/31/2021 IR Line or Tube Removal in Recovery Room 07/31/2021 [facility] INTERVENTIONL RAD ??? KIDNEY TRANSPLANT KIDNEY TRANSPLANT / RECIPIENT/LT Procedure Date: 11/26/2002 ??? PRO ANASTOMOSIS, AV, ANY SITE Right 05/22/2021 AV FISTULA CREATION, DIRECT HEMODIALYSIS, ANY SITE, EG MADYSON FISTULA LOWER EXTREMITY (WRVU 11.9) performed by Odalis Elias MD at [facility] MAIN OR ??? PRO CREAT AV FISTULA, NON-AUTOGENOUS GRAFT Right 12/13/2018 PLACEMENT, AV HEMODIALYSIS GRAFT, SYNTHETIC GRAFT, UPPER EXTREMITY (WRVU 12.03) performed by Mary Garay MD at [facility] MAIN OR ??? PRO CREAT AV FISTULA, NON-AUTOGENOUS GRAFT Left 04/03/2021 PLACEMENT, AV HEMODIALYSIS GRAFT, SYNTHETIC GRAFT, UPPER EXTREMITY (WRVU 12.03) performed by Odalis Elias MD at [facility] MAIN OR ? ? PRO DEBRIDEMENT SUBCUTANEOUS TISSUE 20 SQCM/< Left 02/20/2016 DEBRIDEMENT SKIN AND SUBCU, HEAD/NECK performed by Miguel Angel Moreno MD at [facility] MAIN OR ??? PRO DECOMPRESS FOREARM, BRACH ART EXPLOR Left 04/06/2018 FASCIOTOMY, FOREARM, WITH BRACHIAL ARTERY EXPLORATION (WRVU 8.41) performed by Lida Peter MDat [facility] OR ??? PRO DIRECT REPAIR RUPTURED ANEURYSM, AXILLO-BRACHIAL ARM INCIS Left 04/06/2018 @REPAIR, RUPTURED AXILLARY OR BRACHIAL ARTERY ANEURYSM BY ARM INCISION (WRVU *) performed by Lida Peter MD at [facility] MAIN OR ??? PRO EXC PAROTD, TOTAL, UNILAT RAD NECK Left 02/05/2016 @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, TOTAL, WITH UNILATERAL RADICAL NECK DISSECTION performed by Miguel Angel Moreno MD at [facility] MAIN OR ??? PRO EXC SKIN MALIG 3.1-4CM FACE, FACIAL Left 02/05/2016 EXC MALIGNANT LESION, 3.1 TO 4.0CM, FACE performed by Miguel Angel Moreno MD at [facility] MAIN OR ? ? PRO EXC SKIN MALIG >4CM TRUNK, ARM, LEG 04/19/2012 EXC MALIGNANT LESION, MICHAEL > 4.0CM, TRUNK performed by SABRINA SANCHEZ at [facility] MAIN OR ??? PRO LAP, RADICAL NEPHRECTOMY Left 05/31/2017 @LAPAROSCOPY, RADICAL NEPHRECTOMY (WRVU 25.06) performed by Jax Mills MD at [facility] OR ??? PRO LIGATN ANGIOACCESS AV FISTULA Left 04/19/2018 LIGATION OR BANDING OF HEMODIALYSIS FISTULA OR GRAFT UPPER EXTREMITY (WRVU 6.25) performed by Odalis Elias MD at [facility] OR ??? PRO NEGATIVE PRESSURE WOUND THERAPY, LESS THAN OR EQUAL TO 50 SQCM Left 04/19/2018 DRESSING CHANGE (VAC ASSISTED) UP TO 50SQ.CM (WRVU 0.55) performed by Odalis Elias MD [facility] OR ??? PRO PHLEB VEINS - EXTREM - TO 20 Right 05/22/2021 STAB PHLEBECTOMY LISBET VEINS 1 EXTREMITY 10-20 INCISIONS (WRVU 7.71) performed by Odalis Elias MD at [facility] MAIN OR ??? PRO REBL VES GRAFT, UP EXTREM Left 04/06/2018 REPAIR BLOOD VESSEL WITH GRAFT OTHER THAN VEIN, UPPER EXTREMITY (WRVU 15.83) performed by Lida Peter MD at [facility] OR ??? PRO RELIEVE PRESSURE ON NERVE(S) Left 04/06/2018 (MSURG) CARPAL TUNNEL (WRVU 4.82) performed by Silviano Sparks MD at [facility] MAIN OR ??? PRO REPAIR INTERMEDIATE S/A/T/E 2.6-7.5 CM 04/19/2012 REPAIR INTERMEDIATE WOUND, (NO HANDS OR FEET) 2.6 TO 7.5CM, UPPER EXTREMITY performed by SABRINA SANCHEZ at [facility] OR ? ? PRO REPAIR INTERMEDIATE S/A/T/E > 30.0 CM Left 04/14/2018 REPAIR INTERMEDIATE WOUND, (NO HANDS OR FEET) >30.0CM, UPPER EXTREMITY (WRVU 5) performed by Yimi Easton MD at [facility] OR ??? PRO REVISE MEDIAN N/CARPAL TUNNEL SURG Left 04/06/2018 MEDIAN NERVE DECOMPRESSION (CARPAL TUNNEL RELEASE) (WRVU 4.97) performed by Lida Peter MD [facility] MAIN OR ? ? PRO SPLIT GRFT TRUNK, ARM, LEG <100SQCM Left 04/26/2018 SPLIT THICK SKIN GRAFT,100 SQ CM OR LESS, ARMS (WRVU 9.9) performed by Silviano Sparks MD at [facility] MAIN OR ? ? PRO SPLIT GRFT, HEAD, FAC, HAND, FEET <100SQCM N/A 02/20/2016 SPLIT THICKNESS SKIN SPLIT GRAFT,100SQ CM OR LESS, NECK performed by Miguel Angel Moreno MD at [facility] MAIN OR ??? PRO SPLIT GRFT, TRUNK, ARM, LEG EA 100SQCM N/A 04/26/2018 EA.ADDITIONAL 100SQ.CM STSG (WRVU 1.72) performed by Silviano Sparks MD at [facility] MAIN OR ??? PRO UNLISTED PROCEDURE VASCULAR SURGERY Left 11/20/2015 LIGATION\REPAIR AV FISTULA performed by Camilo Ireland MD at [facility] MAIN OR ??? PRO UNLISTED PROCEDURE VASCULAR SURGERY Left 11/20/2015 EXCISION VEIN FROM HAND performed by Camilo Ireland MD at [facility] MAIN OR ??? PRO UPPER GI ENDOSCOPY, BIOPSY N/A 05/13/2017 EGD WITH BIOPSY (WRVU 2.49) performed by Aditya Barrera MD at [facility] ENDOSCOPY ??? US RENAL TRANSPLANT BIOPSY 12/31/2010 ??? US RENAL TRANSPLANT RIGHT Right 06/04/2018 US Renal Transplant Right 06/04/2018 [facility] RAD ULTRASOUND Social History and Habits: [...] in this encounter Care Teams Director Of District Office Relationship Specialty Start Date End Date Carroll Fuentes DO [address] [place] [address] PCP - General 09/23/11 10/20/22 documented as of this encounter
--- OUTSIDE RECORDS SUMMARY | 2024-05-23 13:14 | XMS_ITS | Encounter Summary ---
Author Organization [facility] [place] [address] Care Team Providers Care Global Program Manager Name Role Phone Carroll Fuentes DO Primary Care Provider Encounter Details Date Type Department Care Team (Late st Contact Info) Description 10/02/2021 Orders Only [place]ph[place] [address] Luna Solorio TIMBER TREATING TANK OPERATOR [facility] [place] [address] ESRD (end stage renal disease) Social History [...] disease documented in this encounter Care Teams Global Program Manager Relationship Specialty Start Date End Date Carroll Fuentes DO [address] [place] [address] PCP - General 09/23/11 10/20/22 documented as of this encounter
--- OUTSIDE RECORDS SUMMARY | 2024-05-23 13:14 | XMS_ITS | Encounter Summary ---
[place] [address] Care Team Providers Care Cashier Payments Received Name Role Phone AlfredoCarroll allison Primary Care Provider [phone] Reason for Referral * Diagnostic Test (Routine) - Closed Specialty Diagnoses / Procedures Referred By Shashi ko Referred To Contact Radiology Diagnoses ESRD (end stage renal disease) Procedures IR Line or Tube Removal in Recovery Room IR Dialysis Access - Tunneled Line Luna Solorio [employer] [facility] [address] [place] [address] Referral ID Status Reason Start Date Expiration Date V isits Requested Visits Authorized [id number] Closed Specialty Service Requested 07/25/2021 01/22/2023 1 1 Reason for Visit * Diagnostic Test (Routine) - Closed Specialty Diagnoses / Procedures Referred By Shashi t Referred To Contact Radiology Diagnoses ESRD (end stage renal disease) Procedures IR Line or Tube Removal in Recovery Room IR Dialysis Access - Tunneled Line Luna Solorio APRN [facility] [address] [place] [address] Referral ID Status Reason Start Date Expiration Date V isits Requested Visits Authorized [id number] Closed Specialty Service Requested 07/25/2021 01/22/2023 1 1 Encounter Details Date Type Department Care Team (Latest Contact Info) Description 07/31/2021 1:00 PM EST - 07/31/2021 11:59 PM EST Hospital [place] [address] Luna Solorio [employer] [facility] [place] [address] ESRD (end stage renal disease) Discharge Disposition: [...] Cuenca RN - 07/31/2021 2:18 PM EST [facility] Vascular and Interventional Radiology Discharge Instructions [...] is during regular office hours, please call [phone]. If it is after regular office hours, or on weekends or holidays, please call [phone] and ask to speak to the Dry Drug Worker electronic induction hardener for Interventional Radiology. You have received medication [...] indication: ESRD, alternate functioning dialysis access, discontinue [facility] durable venous access for dialysis IR workflow: Procedure request received through Interventional Radiology eDH order queue. Order Questions Answers Where will study be performed? [facility] Radiology [120] Is the patient on [...] 03/20/21 HD Tunneled line exchange??/ angioplasty at [facility] Local only, tolerated Imaging: Assessment: 60 y.o. male with ESRD and alternate functional [facility] dialysis access presenting to Interventional Radiology for [...] AV Fistula Evaluations 11/30/2019 Sabrina Velez MD [facility] INTERVENTIONL RAD ??? IR DIALYSIS ACCESS - AV FISTULA EVALUATIONS 01/07/2021 IR Dialysis Access - AV Fistula Evaluations 01/07/2021 Sabrina Velez MD [facility] INTERVENTIONL RAD ??? IR DIALYSIS ACCESS - TUNNELED LINE 07/30/2018 IR Dialysis Access - Tunneled Line 07/30/2018 Walt Lin MD [facility] INTERVENTIONL RAD ??? IR DIALYSIS ACCESS - TUNNELED LINE 08/30/2018 IR Dialysis Access - Tunneled Line 08/30/2018 Erwin Simon APRN [facility] INTERVENTIONL RAD ??? IR DIALYSIS ACCESS - TUNNELED LINE 12/27/2020 IR Dialysis Access - Tunneled Line 12/27/2020 Kanu Apple MD [facility] INTERVENTIONL RAD ??? IR DIALYSIS ACCESS - TUNNELED LINE 01/23/2021 IR Dialysis Access - Tunneled Line 01/23/2021 Kanu Apple MD [facility] INTERVENTIONL RAD ??? IR DIALYSIS ACCESS - TUNNELED LINE 03/20/2021 IR Dialysis Access - Tunneled Line 03/20/2021 Tab Harmon MD [facility] INTERVENTIONL RAD ??? KIDNEY TRANSPLANT KIDNEY TRANSPLANT / RECIPIENT/LT Procedure Date: 11/26/2002 ??? PRO ANASTOMOSIS, AV, ANY SITE Right 05/22/2021 AV FISTULA CREATION, DIRECT HEMODIALYSIS, ANY SITE, EG MADYSON FISTULA LOWER EXTREMITY (WRVU 11.9) performed by Odalis Elias MD at [facility] MAIN OR ??? PRO CREAT AV FISTULA, NON-AUTOGENOUS GRAFT Right 12/13/2018 PLACEMENT, AV HEMODIALYSIS GRAFT, SYNTHETIC GRAFT, UPPER EXTREMITY (WRVU 12.03) performed by Mary Garay MD at [facility] MAIN OR ??? PRO CREAT AV FISTULA, NON-AUTOGENOUS GRAFT Left 04/03/2021 PLACEMENT, AV HEMODIALYSIS GRAFT, SYNTHETIC GRAFT, UPPER EXTREMITY (WRVU 12.03) performed by Odalis Elias MD at [facility] MAIN OR ? ? PRO DEBRIDEMENT SUBCUTANEOUS TISSUE 20 SQCM/< Left 02/20/2016 DEBRIDEMENT SKIN AND SUBCU, HEAD/NECK performed by Miguel Angel Moreno MD at [facility] MAIN OR ??? PRO DECOMPRESS FOREARM, BRACH ART EXPLOR Left 04/06/2018 FASCIOTOMY, FOREARM, WITH BRACHIAL ARTERY EXPLORATION (WRVU 8.41) performed by Lida Peter, Laureent [facility] MAIN OR ??? PRO DIRECT REPAIR RUPTURED ANEURYSM, AXILLO-BRACHIAL ARM INCIS Left 04/06/2018 @REPAIR, RUPTURED AXILLARY OR BRACHIAL ARTERY ANEURYSM BY ARM INCISION (WRVU *) performed by Lida Peter MD at [facility] MAIN OR ??? PRO EXC PAROTD, TOTAL, UNILAT RAD NECK Left 02/05/2016 @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, TOTAL, WITH UNILATERAL RADICAL NECK DISSECTION performed by Miguel Angel Moreno MD at [facility] OR ??? PRO EXC SKIN MALIG 3.1-4CM FACE, FACIAL Left 02/05/2016 EXC MALIGNANT LESION, 3.1 TO 4.0CM, FACE performed by Miguel Angel Moreno MD at [facility] OR ? ? PRO EXC SKIN MALIG >4CM TRUNK, ARM, LEG 04/19/2012 EXC MALIGNANT LESION, MICHAEL > 4.0CM, TRUNK performed by SABRINA SANCHEZ at [facility] MAIN OR ??? PRO LAP, RADICAL NEPHRECTOMY Left 05/31/2017 @LAPAROSCOPY, RADICAL NEPHRECTOMY (WRVU 25.06) performed by Jax Mills MD at [facility] MAIN OR ??? PRO LIGATN ANGIOACCESS AV FISTULA Left 04/19/2018 LIGATION OR BANDING OF HEMODIALYSIS FISTULA OR GRAFT UPPER EXTREMITY (WRVU 6.25) performed by Odalis Elias MD at [facility] OR ??? PRO NEGATIVE PRESSURE WOUND THERAPY, LESS THAN OR EQUAL TO 50 SQCM Left 04/19/2018 DRESSING CHANGE (VAC ASSISTED) UP TO 50SQ.CM (WRVU 0.55) performed by Odalis Elias MD [facility] OR ??? PRO PHLEB VEINS - EXTREM - TO 20 Right 05/22/2021 STAB PHLEBECTOMY LISBET VEINS 1 EXTREMITY 10-20 INCISIONS (WRVU 7.71) performed by Odalis Elias MD at [facility] MAIN OR ??? PRO REBL VES GRAFT, UP EXTREM Left 04/06/2018 REPAIR BLOOD VESSEL WITH GRAFT OTHER THAN VEIN, UPPER EXTREMITY (WRVU 15.83) performed by Lida Peter MD at [facility] OR ??? PRO RELIEVE PRESSURE ON NERVE(S) Left 04/06/2018 (MSURG) CARPAL TUNNEL (WRVU 4.82) performed by Silviano Sparks MD at [facility] MAIN OR ??? PRO REPAIR INTERMEDIATE S/A/T/E 2.6-7.5 CM 04/19/2012 REPAIR INTERMEDIATE WOUND, (NO HANDS OR FEET) 2.6 TO 7.5CM, UPPER EXTREMITY performed by SABRINA SANCHEZ at [facility] MAIN OR ? ? PRO REPAIR INTERMEDIATE S/A/T/E > 30.0 CM Left 04/14/2018 REPAIR INTERMEDIATE WOUND, (NO HANDS OR FEET) >30.0CM, UPPER EXTREMITY (WRVU 5) performed by Yimi Easton MD at [facility] OR ??? PRO REVISE MEDIAN N/CARPAL TUNNEL SURG Left 04/06/2018 MEDIAN NERVE DECOMPRESSION (CARPAL TUNNEL RELEASE) (WRVU 4.97) performed by Lida Peter MD [facility] MAIN OR ? ? PRO SPLIT GRFT TRUNK, ARM, LEG <100SQCM Left 04/26/2018 SPLIT THICK SKIN GRAFT,100 SQ CM OR LESS, ARMS (WRVU 9.9) performed by Silviano Sparks MD at [facility] MAIN OR ? ? PRO SPLIT GRFT, HEAD, FAC, HAND, FEET <100SQCM N/A 02/20/2016 SPLIT THICKNESS SKIN SPLIT GRAFT,100SQ CM OR LESS, NECK performed by Miguel Angel Moreno MD at [facility] MAIN OR ??? PRO SPLIT GRFT, TRUNK, ARM, LEG EA 100SQCM N/A 04/26/2018 EA.ADDITIONAL 100SQ.CM STSG (WRVU 1.72) performed by Silviano Sparks MD at [facility] MAIN OR ??? PRO UNLISTED PROCEDURE VASCULAR SURGERY Left 11/20/2015 LIGATION\REPAIR AV FISTULA performed by Camilo Irelnad MD at [facility] MAIN OR ??? PRO UNLISTED PROCEDURE VASCULAR SURGERY Left 11/20/2015 EXCISION VEIN FROM HAND performed by Camilo Ireland MD at [facility] MAIN OR ??? PRO UPPER GI ENDOSCOPY, BIOPSY N/A 05/13/2017 EGD WITH BIOPSY (WRVU 2.49) performed by Aditya Barrera MD at [facility] ENDOSCOPY ??? US RENAL TRANSPLANT BIOPSY 12/31/2010 ??? US RENAL TRANSPLANT RIGHT Right 06/04/2018 US Renal Transplant Right 06/04/2018 [facility] RAD ULTRASOUND Social history and habits: [...] venous catheter explant Indication: ESRD, discontinue durable [facility] central venous access Pre-procedure: Informed consent for [...] MD 07/31/2021 Salvador Moise MD Luna Solorio [employer] IMG IR ORDERABLES documented in this encounter Visit Diagnoses Diagnosis ESRD (end stage renal disease) End stage renal disease documented in this encounter Care Teams Cashier Payments Received Relationship Specialty Start Date End Date Carroll Fuentes DO [address] [place] [address] PCP - General 09/23/11 10/20/22 documented as of this encounter
--- OUTSIDE RECORDS SUMMARY | 2024-05-23 13:14 | XMS_ITS | Encounter Summary ---
Author Organization [facility] [place] [address] Care Team Providers Care Brush Trimming Machine Setter Name Role Phone Carroll Fuentes DO Primary [...] on filedocumented in this encounter Care Teams Brush Trimming Machine Setter Relationship Specialty Start Date End Date Carroll Fuentes DO [address] [place] [address] PCP - General 09/23/11 10/20/22 documented as of this encounter
--- OUTSIDE RECORDS SUMMARY | 2024-05-23 13:14 | XMS_ITS | Encounter Summary ---
Author Organization [facility] [place] [address] Care Team Providers Care Car And Yard Supervisor Name Role Phone Alfredo, Carroll MIX Primary Care Provider [phone] Reason for Referral * Diagnostic Test (Routine) - Closed Specialty Diagnoses / Procedures Referred By Shashi t Referred To Contact Diagnoses ESRD (end stage renal disease) on dialysis Thrombosis of arteriovenous fistula, initial encounter Procedures AVF/Established Access Evaluation Aries Tong MD [facility] [place] [address] [facility] Vascular Lab [address] [place] [address] Referral ID Status Reason Start Date Expiration Date V isits Requested Visits Authorized [id number] Closed Specialty Service Requested 10/28/2021 10/28/2022 1 1 Encounter Details Date Type Department Care Team (Late st Contact Info) Description 10/28/2021 Orders Only [place] [address] Corina Martinez RN ESRD (end [...] Text Report Department: Vascular Surgery Lab Patient: [id number] (CHRISTY AMBROSE) CPT: 11346 Referring Physician: ARIES TONG ?? Phone: Indications: [...] PM EDT Aries Tong [facility] documented in this encounter Visit Diagnoses Diagnosis ESRD (end stage renal disease) on dialysis End stage renal disease Thrombosis of arteriovenous fistula, initial encounter documented in this encounter Care Teams Car And Yard Supervisor Relationship Specialty Start Date End Date Carroll Fuentes DO [address] [place] [address] PCP - General 09/23/11 10/20/22 documented as of this encounter
--- OUTSIDE RECORDS SUMMARY | 2024-05-23 13:14 | XMS_ITS | Encounter Summary ---
[place] [address] Care Team Providers Care Precision Farming Coordinator Name Role Phone AlfredoCarroll allison Primary Care Provider [phone] Reason for Referral * Diagnostic Test (Routine) - Closed Specialty Diagnoses / Procedures Referred By Shashi ko Referred To Contact Radiology Diagnoses ESRD (end stage renal disease) Procedures IR Dialysis Access - AV Fistula Evaluations Luna Solorio [facility] [address] [place] [address] Referral ID Status Reason Start Date Expiration Date V isits Requested Visits Authorized [id number] Closed Specialty Service Requested 09/24/2021 03/27/2023 1 1 Reason for Visit * Diagnostic Test (Routine) - Closed Specialty Diagnoses / Procedures Referred By Shashi ko Referred To Contact Radiology Diagnoses ESRD (end stage renal disease) Procedures IR Dialysis Access - AV Fistula Evaluations Luna Solorio LATHER APPRENTICE [facility] [place] [address] [place] [address] Referral ID Status Reason Start Date Expiration Date V isits Requested Visits Authorized [id number] Closed Specialty Service Requested 09/24/2021 03/27/2023 1 1 Encounter Details Date Type Department Care Team (Latest Contact Info) Description 09/25/2021 6:17 AM EDT - 09/25/2021 11:59 PM EDT Hospital Encounter [place] [address] Luna Solorio LATHER APPRENTICE [facility] [place] [address] Pre-op testing; ESRD (end stage renal disease) [...] Gay, RN - 09/25/2021 8:[address] [facility] Vascular and Interventional Radiology Discharge [...] is during regular office hours, please call [phone]. If it is after regular office hours, or on weekends or holidays, please call [phone] and ask to speak to the Strategic Partnership Representative personnel research scientist for Interventional Radiology. You have received medication [...] of : 1960 AGE: 61 y.o. Address: [address] [address] Phone: [phone] (home) Mobile: Telephone Information: Referring Provider: Luna Solorio REASON FOR VISIT: Order Questions Answers Where will study be performed? [facility] Radiology [120] Laterality Right Is the patient [...] face C44.329 ??? 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 prison current [...] 03/20/21 HD Tunneled line exchange??/ angioplasty at [facility] Local only, tolerated well [...] Clotted AVG IR workflow: Received call from [facility] dialysis regarding clotted/thrombosed AVG Order Questions Answers Where will study be performed? [facility] Radiology [120] Laterality Right Is the patient [...] be thrombosed s/p TPA administration, venous anastomosis ROOM SERVICE SUPERVISOR to 8mm and Vel balloon sweep who [...] 03/20/21 HD Tunneled line exchange??/ angioplasty at [facility] [place] Local only, tolerated well [...] face C44.329 ??? 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 prison current [...] - Tunneled Line 08/30/2018 Erwin Simon APRN [facility] INTERVENTIONL RAD ??? IR DIALYSIS [...] 12.03) performed by Mary Garay MD at [facility] OR ??? PRO CREAT AV FISTULA, NON-AUTOGENOUS GRAFT Left 04/03/2021 PLACEMENT, AV HEMODIALYSIS GRAFT, SYNTHETIC GRAFT, UPPER EXTREMITY (WRVU 12.03) performed by Odalis Elias MD at [facility] OR ? ? PRO DEBRIDEMENT SUBCUTANEOUS TISSUE 20 SQCM/< Left 02/20/2016 DEBRIDEMENT SKIN AND SUBCU, HEAD/NECK performed by Miguel Angel Moreno MD at [facility] OR ??? PRO DECOMPRESS FOREARM, BRACH ART EXPLOR Left 04/06/2018 FASCIOTOMY, FOREARM, WITH BRACHIAL ARTERY EXPLORATION (WRVU 8.41) performed by Lida Peter, Edgard [facility] OR ??? PRO DIRECT REPAIR [...] performed by Miguel Angel Moreno MD at [facility] OR ? ? PRO EXC SKIN MALIG >4CM TRUNK, ARM, LEG 04/19/2012 EXC MALIGNANT LESION, MICHAEL > 4.0CM, TRUNK performed by SABRINA SANCHEZ at [facility] OR ??? PRO LAP, RADICAL NEPHRECTOMY Left 05/31/2017 @LAPAROSCOPY, RADICAL NEPHRECTOMY (WRVU 25.06) performed by Jax Mills MD at [facility] OR ??? PRO LIGATN ANGIOACCESS AV FISTULA Left 04/19/2018 LIGATION OR BANDING OF HEMODIALYSIS FISTULA OR GRAFT UPPER EXTREMITY (WRVU 6.25) performed by Odalis Elias MD at [facility] MAIN OR ??? PRO NEGATIVE PRESSURE WOUND THERAPY, LESS THAN OR EQUAL TO 50 SQCM Left 04/19/2018 DRESSING CHANGE (VAC ASSISTED) UP TO 50SQ.CM (WRVU 0.55) performed by Odalis Elias MD [facility] OR ??? PRO PHLEB VEINS - EXTREM - TO 20 Right 05/22/2021 STAB PHLEBECTOMY LISBET VEINS 1 EXTREMITY 10-20 INCISIONS (WRVU 7.71) performed by Odalis Elias MD at [facility] OR ??? PRO REBL VES GRAFT, UP EXTREM Left 04/06/2018 REPAIR BLOOD VESSEL WITH GRAFT OTHER THAN VEIN, UPPER EXTREMITY (WRVU 15.83) performed by Lida Peter MD at [facility] OR ??? PRO RELIEVE PRESSURE ON NERVE(S) Left 04/06/2018 (MSURG) CARPAL TUNNEL (WRVU 4.82) performed by Silviano Sparks MD at [facility] OR ??? PRO REPAIR INTERMEDIATE [...] (WRVU 4.97) performed by Lida Peter MD [facility] MAIN OR ? ? PRO SPLIT [...] Right 06/04/2018 [facility] RAD ULTRASOUND Social history and habits: Social [...] Questions Answers Where will study be performed? [facility] Radiology [120] Laterality Right Is the patient on anticoagulant / antiplatelet therapy ? Aspirin Reason for exam and clinical history: R thigh AVG clotted Presenting Diagnosis/ Complaint: Christy Ambrose is a 61 y.o. 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 prison current [...] - Tunneled Line 08/30/2018 Erwin Simon, CATRACHITO [facility] INTERVENTIONL RAD ??? IR DIALYSIS [...] 11.9) performed by Odalis Elias MD at [facility] OR ??? PRO CREAT AV FISTULA, NON-AUTOGENOUS GRAFT Right 12/13/2018 PLACEMENT, AV HEMODIALYSIS GRAFT, SYNTHETIC GRAFT, UPPER EXTREMITY (WRVU 12.03) performed by Mary Garay MD at [facility] OR ??? PRO CREAT AV FISTULA, NON-AUTOGENOUS GRAFT Left 04/03/2021 PLACEMENT, AV HEMODIALYSIS GRAFT, SYNTHETIC GRAFT, UPPER EXTREMITY (WRVU 12.03) performed by Odalis Elias MD at [facility] OR ? ? PRO DEBRIDEMENT SUBCUTANEOUS TISSUE 20 SQCM/< Left 02/20/2016 DEBRIDEMENT SKIN AND SUBCU, HEAD/NECK performed by Miguel Angel Moreno MD at [facility] OR ??? PRO DECOMPRESS FOREARM, BRACH ART EXPLOR Left 04/06/2018 FASCIOTOMY, FOREARM, WITH BRACHIAL ARTERY EXPLORATION (WRVU 8.41) performed by Lida Peter MDat [facility] OR ??? PRO DIRECT REPAIR RUPTURED ANEURYSM, AXILLO-BRACHIAL ARM INCIS Left 04/06/2018 @REPAIR, RUPTURED AXILLARY OR BRACHIAL ARTERY ANEURYSM BY ARM INCISION (WRVU *) performed by Lida Peter MD at [facility] OR ??? PRO EXC PAROTD, TOTAL, UNILAT RAD NECK Left 02/05/2016 @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, TOTAL, WITH UNILATERAL RADICAL NECK DISSECTION performed by Miguel Angel Moreno MD at [facility] OR ??? PRO EXC SKIN MALIG 3.1-4CM FACE, FACIAL Left 02/05/2016 EXC MALIGNANT LESION, 3.1 TO 4.0CM, FACE performed by Miguel Angel Moreno MD at [facility] OR ? ? PRO EXC SKIN MALIG >4CM TRUNK, ARM, LEG 04/19/2012 EXC MALIGNANT LESION, MICHAEL > 4.0CM, TRUNK performed by SABRINA SANCHEZ at [facility] OR ??? PRO LAP, RADICAL [...] performed by Odalis Elias MD [facility] MAIN OR ??? PRO PHLEB VEINS [...] (WRVU 4.97) performed by Lida Peter MD [facility] MAIN OR ? ? PRO SPLIT [...] Transplant Right 06/04/2018 [facility] RAD ULTRASOUND Medications: Current Outpatient Medications on [...] by mouth 2 times daily. 05/05/21 per [facility], patient taking 2 capsules in the [...] Not on file Occupational History ??? 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 Smoking status: [...] 03/20/21 HD Tunneled line exchange??/ angioplasty at [facility] [place] Local only, tolerated well [...] Questions Answers Where will study be performed? [facility] Radiology [120] Laterality Right Is the patient on anticoagulant / antiplatelet therapy ? Aspirin Reason for exam and clinical history: R thigh AVG clotted Presenting Diagnosis/ Complaint: Christy Ambrose is a 61 y.o. male with PMH of ESRD s/p transplant [id number] with graft failure now on dialysis with [...] face C44.329 ??? 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 prison current [...] - Tunneled Line 08/30/2018 Erwin Simon APRN [facility] INTERVENTIONL RAD ??? IR DIALYSIS [...] 12.03) performed by Mary Garay MD at [facility] OR ??? PRO CREAT AV FISTULA, NON-AUTOGENOUS GRAFT Left 04/03/2021 PLACEMENT, AV HEMODIALYSIS GRAFT, SYNTHETIC GRAFT, UPPER EXTREMITY (WRVU 12.03) performed by Odalis Elias MD at [facility] OR ? ? PRO DEBRIDEMENT SUBCUTANEOUS TISSUE 20 SQCM/< Left 02/20/2016 DEBRIDEMENT SKIN AND SUBCU, HEAD/NECK performed by Miguel Angel Moreno MD at [facility] OR ??? PRO DECOMPRESS FOREARM, BRACH ART EXPLOR Left 04/06/2018 FASCIOTOMY, FOREARM, WITH BRACHIAL ARTERY EXPLORATION (WRVU 8.41) performed by Lida Peter MDat [facility] OR ??? PRO DIRECT REPAIR [...] performed by Miguel Angel Moreno MD at [facility] OR ??? PRO EXC SKIN MALIG 3.1-4CM FACE, FACIAL Left 02/05/2016 EXC MALIGNANT LESION, 3.1 TO 4.0CM, FACE performed by Miguel Angel Moreno MD at [facility] OR ? ? PRO EXC SKIN MALIG >4CM TRUNK, ARM, LEG 04/19/2012 EXC MALIGNANT LESION, MICHAEL > 4.0CM, TRUNK performed by SABRINA SANCHEZ at [facility] OR ??? PRO LAP, RADICAL NEPHRECTOMY Left 05/31/2017 @LAPAROSCOPY, RADICAL NEPHRECTOMY (WRVU 25.06) performed by Jax Mills MD at [facility] OR ??? PRO LIGATN ANGIOACCESS AV FISTULA Left 04/19/2018 LIGATION OR BANDING OF HEMODIALYSIS FISTULA OR GRAFT UPPER EXTREMITY (WRVU 6.25) performed by Odalis Elias MD at [facility] OR ??? PRO NEGATIVE PRESSURE WOUND THERAPY, LESS THAN OR EQUAL TO 50 SQCM Left 04/19/2018 DRESSING CHANGE (VAC ASSISTED) UP TO 50SQ.CM (WRVU 0.55) performed by Odalis Elias MD [facility] OR ??? PRO PHLEB VEINS - EXTREM - TO 20 Right 05/22/2021 STAB PHLEBECTOMY LISBET VEINS 1 EXTREMITY 10-20 INCISIONS (WRVU 7.71) performed by Odalis Elias MD at [facility] OR ??? PRO REBL VES GRAFT, UP EXTREM Left 04/06/2018 REPAIR BLOOD VESSEL WITH GRAFT OTHER THAN VEIN, UPPER EXTREMITY (WRVU 15.83) performed by Lida Peter MD at [facility] OR ??? PRO RELIEVE PRESSURE ON NERVE(S) Left 04/06/2018 (MSURG) CARPAL TUNNEL (WRVU 4.82) performed by Silviano Sparks MD at [facility] OR ??? PRO REPAIR INTERMEDIATE [...] (WRVU 4.97) performed by Lida Peter MD [facility] MAIN OR ? ? PRO SPLIT [...] Transplant Right 06/04/2018 [facility] RAD ULTRASOUND Medications: Current Outpatient Medications on [...] by mouth 2 times daily. 05/05/21 per [facility], patient taking 2 capsules in the [...] Not on file Occupational History ??? 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 Smoking status: [...] Girard MD - 09/25/2021 11:[address] [facility] HYPERTENSION/ NEPHROLOGY INPATIENT CONSULTATION PATIENT: Christy Ambrose : 1960 REASON FOR CONSULTATION: Management [facility] ESRD 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 Patient normally dialyzes at the [facility]. He could not dialyze yesterday due [...] - Tunneled Line 08/30/2018 Erwin Simon, [place]O [facility] INTERVENTIONL RAD ??? IR DIALYSIS [...] 12.03) performed by Mary Garay MD at [facility] OR ??? PRO CREAT AV [...] (WRVU 8.41) performed by Lida Peter MDat [facility] OR ??? PRO DIRECT REPAIR RUPTURED ANEURYSM, AXILLO-BRACHIAL ARM INCIS Left 04/06/2018 @REPAIR, RUPTURED AXILLARY OR BRACHIAL ARTERY ANEURYSM BY ARM INCISION (WRVU *) performed by Lida Peter MD at [facility] OR ??? PRO EXC PAROTD, TOTAL, UNILAT RAD NECK Left 02/05/2016 @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, TOTAL, WITH UNILATERAL RADICAL NECK DISSECTION performed by Miguel Angel Moreno MD at [facility] OR ??? PRO EXC SKIN MALIG 3.1-4CM FACE, FACIAL Left 02/05/2016 EXC MALIGNANT LESION, 3.1 TO 4.0CM, FACE performed by Miguel Angel Moreno MD at [facility] OR ? ? PRO EXC SKIN MALIG >4CM TRUNK, ARM, LEG 04/19/2012 EXC MALIGNANT LESION, MICHAEL > 4.0CM, TRUNK performed by SABRINA SANCHEZ at [facility] OR ??? PRO LAP, RADICAL NEPHRECTOMY Left 05/31/2017 @LAPAROSCOPY, RADICAL NEPHRECTOMY (WRVU 25.06) performed by Jax Mills MD at [facility] OR ??? PRO LIGATN ANGIOACCESS AV FISTULA Left 04/19/2018 LIGATION OR BANDING OF HEMODIALYSIS FISTULA OR GRAFT UPPER EXTREMITY (WRVU 6.25) performed by Odalis Elias MD at [facility] OR ??? PRO NEGATIVE PRESSURE WOUND THERAPY, LESS THAN OR EQUAL TO 50 SQCM Left 04/19/2018 DRESSING CHANGE (VAC ASSISTED) UP TO 50SQ.CM (WRVU 0.55) performed by Odalis Elias MD [facility] OR ??? PRO PHLEB VEINS - EXTREM - TO 20 Right 05/22/2021 STAB PHLEBECTOMY LISBET VEINS 1 EXTREMITY 10-20 INCISIONS (WRVU 7.71) performed by Odalis Elias MD at [facility] OR ??? PRO REBL VES GRAFT, UP EXTREM Left 04/06/2018 REPAIR BLOOD VESSEL WITH GRAFT OTHER THAN VEIN, UPPER EXTREMITY (WRVU 15.83) performed by Lida Peter MD at [facility] OR ??? PRO RELIEVE PRESSURE ON NERVE(S) Left 04/06/2018 (MSURG) CARPAL TUNNEL (WRVU 4.82) performed by Silviano Sparks MD at [facility] OR ??? PRO REPAIR INTERMEDIATE [...] (WRVU 4.97) performed by Lida Peter MD [facility] MAIN OR ? ? PRO SPLIT [...] Transplant Right 06/04/2018 [facility] RAD ULTRASOUND FH: Family History Problem Relation [...] Potassium 6.8(Criti constance) 3.5 - 5.0 mmol/L [facility] Comment: called by EB/read back by Ashleigh Jurado 09-29-21 @ 3513 Please note: ??Patients with WBC >100,000 may have falsely elevated Potassium levels. ??For accurate Potassium quantification in these patients send serum separator tube (gold top) for subsequent determinations. ??Contact the Clinical Chemistry Laboratory if there are any questions. Blood 09/29/2021 3:56 PM EDT 09/29/2021 4:07 PM EDT Narrative Resulting Agency Comment Spec In Lab Sabrina Velez MD CHEMISTRY ORDERABLES Performing Organization Address City/[facility]/ZIP Co de Phone Number [facility] [place] [address] * POCT Glucose (09/25/2021 1:22 PM EDT) Glucose, POC 123 65 - 199 mg/dL [facility] Comment: Supplemental ranges: <140 mg/dL before meals <180 mg/dL all other times of the day Blood 09/25/2021 1:22 PM EDT 09/25/2021 1:22 PM EDT Luna Solorio APRN POINT OF CARE SHAZIA T ORDERABLES [facility] [place] [address] * POCT Glucose (09/25/2021 11:51 AM EDT) Glucose, POC 78 65 - 199 mg/dL [facility] Comment: Supplemental ranges: <140 mg/dL before meals <180 mg/dL all other times of the day Blood 09/25/2021 11:5 1 AM EDT 09/25/2021 11:51 AM EDT Luna Solorio LATHER APPRENTICE POINT OF CARE SHAZIA T ORDERABLES Performing Organization Address [facility] Co de Phone Number [facility] [place] [address] * POCT Glucose (09/25/2021 11:17 AM EDT) Glucose, POC 74 65 - 199 mg/dL [facility] Comment: Supplemental ranges: <140 mg/dL before meals <180 mg/dL all other times of the day Blood 09/25/2021 11:1 7 AM EDT 09/25/2021 11:17 AM EDT Luna Solorio LATHER APPRENTICE POINT OF CARE SHAZIA T ORDERABLES Performing Organization Address [facility] Co de Phone Number [facility] [place] [address] * POCT Glucose (09/25/2021 11:15 AM EDT) Glucose, POC 67 65 - 199 mg/dL [facility] Comment: Supplemental ranges: <140 mg/dL before meals <180 mg/dL all other times of the day Blood 09/25/2021 11:1 5 AM EDT 09/25/2021 11:15 AM EDT Luna Solorio LATHER APPRENTICE POINT OF CARE SHAZIA T ORDERABLES Performing Organization Address [facility] Co de Phone Number [facility] [place] [address] * (ABNORMAL) POCT Glucose (09/25/2021 10:23 AM EDT) Glucose, POC 232(H) 65 - 199 mg/dL [facility] Comment: Supplemental ranges: <140 mg/dL before meals <180 mg/dL all other times of the day Blood 09/25/2021 10:2 3 AM EDT 09/25/2021 10:23 AM EDT Luna Solorio LATHER APPRENTICE POINT OF CARE SHAZIA T ORDERABLES Performing Organization Address City/[facility]/ZIP Co de Phone Number [facility] [place] [address] * EKG 12 Lead (09/25/2021 9:57 AM EDT) Ventricular rate 52 BPM MUSE SYSTEM Atrial Rate 52 BPM MUSE SYSTEM P-R Interval 172 ms MUSE SYSTEM QRS Duration 90 ms MUSE SYSTEM Q-T Interval 436 ms MUSE SYSTEM QTC Calculated (Bezet) 405 ms MUSE SYSTEM Calculated P [place] 83 degrees MUSE SYSTEM Calculated R [place] 61 degrees MUSE SYSTEM Calculated T [place] 65 degrees MUSE SYSTEM INTERPRETATION Sinus bradycardia Otherwise normal ECG When compared with ECG of 13-DEC-2018 17:46, No significant change was found Confirmed by fellow MD Juma, Mark ([id number]) on 09/25/2021 5:08:24 PM Confirmed by MD Luis, Tab ([id number]) on 09/26/2021 9:25:52 AM MUSE SYSTEM 09/25/2021 9:57 AM EDT 09/26/2021 9:25 AM EDT Luna Solorio LATHER APPRENTICE ECG ORDERABLES Performing Organization Address City/[facility] Co de Phone Number MUSE [...] dilated using an 8 mm high pressure ROOM SERVICE SUPERVISOR balloon (28 angy, 3 minutes). ROOM SERVICE SUPERVISOR was performed in the outflow limb back [...] was advanced to the arterial anastomosis and ROOM SERVICE SUPERVISOR performed back the first sheath. The arterial [...] following TPA, balloon maceration, and venous anastomotic ROOM SERVICE SUPERVISOR. ?? IR Resident: Oliver Andersen MD Attending: Greyson Apple MD (I was present and scrubbed for the entire procedure) I was present during the intraservice time as documented by the IR Nurse. Luna Solorio LATHER APPRENTICE IMG IR ORDERABLES * (ABNORMAL) Potassium (09/25/2021 8:08 AM EDT) Potassium 7.4(Criti constance) 3.5 - 5.0 mmol/L [facility] Comment: Called by: , [...] Agency Comment Spec In Lab Luna Solorio LATHER APPRENTICE CHEMISTRY ORDERAB LES [facility] [place] [address] documented in this encounter Visit Diagnoses Diagnosis [...] mg documented in this encounter Care Teams Precision Farming Coordinator Relationship Specialty Start Date End Date Carroll Fuentes DO [address] [place] [address] [address] [facility] [address] [place] [address] PCP - General 09/23/11 10/20/22 documented as of this encounter
--- OUTSIDE RECORDS SUMMARY | 2024-05-23 13:15 | XMS_ITS | Encounter Summary ---
Author Organization [facility] Address [place] [address] Care Team Providers Care Operations General Agent Name Role Phone Carroll Fuentes DO Primary Care Provider [phone] Reason for Referral * Diagnostic Test (Routine) - Closed Specialty Diagnoses / Procedures Referred By Shashi ko Referred To Contact Radiology Diagnoses ESRD (end stage renal disease) Procedures IR Dialysis Access - Tunneled Line Carroll Baires MD [facility] [place] [address] [facility] [place] [address] Referral ID Status Reason Start Date Expiration Date V isits Requested Visits Authorized [id number] Closed Specialty Service Requested 03/12/2021 09/09/2022 1 1 Encounter Details Date Type Department Care Team (Late st Contact Info) Description 03/12/2021 Orders Only Neph[place] [address] Carroll Baires MD [facility] [place] [address] ESRD (end stage renal disease) [...] End stage renal disease, malfunctioning venous catheter, group home durable venous access for dialysis Procedure [...] barrier technique. ?? Sedation: None Technique: A cloth drier fluoroscopic image of the chest showed no [...] tract. An 12 mm x 4 cm Florien DIRECTOR OF SURGERY balloon was advanced over one of the [...] disease documented in this encounter Care Teams Operations General Agent Relationship Specialty Start Date End Date Carroll Fuentes DO [address] [facility] [address] [place] [address] PCP - General 09/23/11 10/20/22 documented as of this encounter
--- OUTSIDE RECORDS SUMMARY | 2024-05-23 13:15 | XMS_ITS | Encounter Summary ---
Author Organization [facility] [place] [address] Care Team Providers Care Planting Machine Operator Name Role Phone AlfredoCarroll allison Primary Care Provider Encounter Details Date Type Department Care Team (Late st Contact Info) Description 02/27/2021 Telephone [place] [id number] Sharmin Cloud Social History Tobacco Use Types [...] AM EDT I spoke with Anabella from [facility] - We have scheduled Adama for [...] on filedocumented in this encounter Care Teams Planting Machine Operator Relationship Specialty Start Date End Date Carroll Fuentes DO [address] [place] [address] PCP - General 09/23/11 10/20/22 documented as of this encounter
--- OUTSIDE RECORDS SUMMARY | 2024-05-23 13:15 | XMS_ITS | Encounter Summary ---
[place] [address] Care Team Providers Care Cloth Finishing Range Tender Name Role Phone AlfredoCarroll allison Primary Care Provider [phone] Encounter Details Date Type Department Care Team (Late st Contact Info) Description 05/02/2021 Orders Only [place] [address] Krysta Treviño RN ESRD (end stage renal [...] Potassium 7.3(Criti constance) 3.5 - 5.0 mmol/L [facility] Comment: Called by: , [...] MD CHEMISTRY ORDER KELLY Performing Organization Address City/State/[facility] Co de Phone Number [facility] [place] [address] documented in this encounter Visit Diagnoses Diagnosis ESRD (end stage renal disease) End stage renal disease Pre-op testing Preoperative examination, unspecified documented in this encounter Care Teams Cloth Finishing Range Tender Relationship Specialty Start Date End Date Carroll Fuentes DO [address] [place] [address] PCP - General 09/23/11 10/20/22 documented as of this encounter
--- OUTSIDE RECORDS SUMMARY | 2024-05-23 13:15 | XMS_ITS | Encounter Summary ---
Author Organization [facility] [place] [address] Care Team Providers Care Occupational Therapy Aide Name Role Phone Alfredo, Carroll MIX Primary Care Provider [phone] Reason for Referral * Diagnostic Test (Routine) - Closed Specialty Diagnoses / Procedures Referred By Shashi ko Referred To Contact Diagnoses ESRD (end stage renal disease) on dialysis Procedures AVF/Established Access Evaluation Crystal Ochoa APRN [facility] [place] [address] [facility] [address] [place] [phone] Referral ID Status Reason Start Date Expiration Date V isits Requested Visits Authorized [id number] Closed Specialty Service Requested 05/23/2021 05/23/2022 1 [...] Expiration Date Visits Re quested Visits Authorized [id number] 1 1 Encounter Details Date Type Department Care Team (Latest Contact Info) Description 05/22/2021 6:16 AM EST - 05/23/2021 2:00 PM EST Hospital Encounter [address] [place] [address] Odalis Tong MD [facility] [place] [address] ESRD (end stage renal disease); Pre-op testing; [...] 15-29 ml/min ??? 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 intermediate current use of immunosuppressive drug ??? H/O [...] Discharge Condition: Good Discharge to: Care Facility: [facility] Future Appointments and Orders Future Appointments and Orders Future Appointments Provider Department Dept Phone 06/06/2021 1:30 PM Nicolás Marte Vascular Lab at [facility] Arrive at: Senior Staff Accountant Area 3V [phone] 06/06/2021 2:00 PM Nilda Minaya APRN Vascular Surgery at [facility] Arrive at: Senior Staff Accountant Area 3V [phone] Future Orders Complete By Expires AVF/Established Access Evaluation [VAS61 Custom] 06/22/2021 12/22/2021 Process Instructions: There is no in-house vascular recyclable materials distributor available on weeknights (5pm-8am), weekends, or holidays. IF THIS IS A REQUEST FOR AN EMERGENT STUDY DURING THOSE HOURS, please have the senior provider responsible for the patient page the Vascular Surgery Fellow/Senior Resident national secretary to discuss options. Scheduling Instructions: Questions: Laterality: Right Which extremity?: Lower Indication for study/signs & symptoms: s/p loop AVG Question to be answered: flow? stenosis? Preferred location?: [facility] Clinics Anticoagulation & Antiplatelet: Anticoagulation: None Antiplatelet: Agent: ASA Indication: ASCVD Intended Duration: emt intermediate For questions regarding these medications, please contact: [...] in 2-3 weeks in V[facility] [place]: Dressings to right thigh can be removed [...] For any problems or questions please call [phone] For issues on weeknights after 5pm and weekends please call [phone] and ask for the Vascular Fellow national secretary. documented in this encounter Discharge Instructions * [...] For any problems or questions please call [phone] For issues on weeknights after 5pm and weekends please call [phone] and ask for the Vascular Fellow national secretary. documented in this encounter Medications at Time [...] Jr gave report to SAVANNA Salinas from [facility]. Discharge summary and medication record printed and included in manila envelope accompanying patient. IVs removed. Belongings gathered. Pt has no concerns at this time. Pt escorted in wheelchair to main entrance by staff, will be met by RCT yard driver. * Ortega Girard MD - 05/23/2021 [...] PCR Not Detected Not Detected SARS-CoV-2 Source SEMICONDUCTOR ENGINEER Swab POCT Glucose Result Value Ref Range [...] Bedrest maintained. Hemodialysis initiated at bedside by wax ball molder. Minimal pain currently. Pt oriented to room, call daniels within reach, [facility]. * Angely Martinez, RN - 05/22/2021 11:34 AM EST Confirmed with staff at [facility], pt's last HD was yesterday. He did [...] AV Fistula Evaluations 11/30/2019 Sabrina Velez MD [facility] INTERVENTIONL RAD ??? IR DIALYSIS ACCESS - AV FISTULA EVALUATIONS 01/07/2021 IR Dialysis Access - AV Fistula Evaluations 01/07/2021 Sabrina Velez MD [facility] INTERVENTIONL RAD ??? IR DIALYSIS ACCESS - TUNNELED LINE 07/30/2018 IR Dialysis Access - Tunneled Line 07/30/2018 Walt Lin MD [facility] INTERVENTIONL RAD ??? IR DIALYSIS ACCESS - TUNNELED LINE 08/30/2018 IR Dialysis Access - Tunneled Line 08/30/2018 Erwin Simon, MUTUEL CASHIER [facility] INTERVENTIONL RAD ??? IR DIALYSIS ACCESS - TUNNELED LINE 12/27/2020 IR Dialysis Access - Tunneled Line 12/27/2020 Kanu Apple MD [facility] INTERVENTIONL RAD ??? IR DIALYSIS ACCESS - TUNNELED LINE 01/23/2021 IR Dialysis Access - Tunneled Line 01/23/2021 Kanu Apple MD [facility] INTERVENTIONL RAD ??? IR DIALYSIS ACCESS - TUNNELED LINE 03/20/2021 IR Dialysis Access - Tunneled Line 03/20/2021 Tab Harmon MD [facility] INTERVENTIONL RAD ??? KIDNEY TRANSPLANT KIDNEY TRANSPLANT / RECIPIENT/LT Procedure Date: 11/26/2002 ??? PRO CREAT AV FISTULA, NON-AUTOGENOUS GRAFT Right 12/13/2018 PLACEMENT, AV HEMODIALYSIS GRAFT, SYNTHETIC GRAFT, UPPER EXTREMITY (WRVU 12.03) performed by Mary Gaary MD at [facility] MAIN OR ??? PRO CREAT AV FISTULA, NON-AUTOGENOUS GRAFT Left 04/03/2021 PLACEMENT, AV HEMODIALYSIS GRAFT, SYNTHETIC GRAFT, UPPER EXTREMITY (WRVU 12.03) performed by Odalis Tong MD at [facility] MAIN OR ? ? PRO DEBRIDEMENT SUBCUTANEOUS TISSUE 20 SQCM/< Left 02/20/2016 DEBRIDEMENT SKIN AND SUBCU, HEAD/NECK performed by Miguel Angel Moreno MD at [facility] MAIN OR ??? PRO DECOMPRESS FOREARM, BRACH ART EXPLOR Left 04/06/2018 FASCIOTOMY, FOREARM, WITH BRACHIAL ARTERY EXPLORATION (WRVU 8.41) performed by Lida Peter MDat [facility] OR ??? PRO DIRECT REPAIR RUPTURED ANEURYSM, AXILLO-BRACHIAL ARM INCIS Left 04/06/2018 @REPAIR, RUPTURED AXILLARY OR BRACHIAL ARTERY ANEURYSM BY ARM INCISION (WRVU *) performed by Lida Peter MD at [facility] OR ??? PRO EXC PAROTD, TOTAL, UNILAT RAD NECK Left 02/05/2016 @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, TOTAL, WITH UNILATERAL RADICAL NECK DISSECTION performed by Miguel Angel Moreno MD at [facility] OR ??? PRO EXC SKIN MALIG [...] 6.25) performed by Odalis Tong MD at [facility] MAIN OR ??? PRO NEGATIVE PRESSURE WOUND THERAPY, LESS THAN OR EQUAL TO 50 SQCM Left 04/19/2018 DRESSING CHANGE (VAC ASSISTED) UP TO 50SQ.CM (WRVU 0.55) performed by Odalis Tong MD [facility] MAIN OR ??? PRO REBL VES GRAFT, UP EXTREM Left 04/06/2018 REPAIR BLOOD VESSEL WITH GRAFT OTHER THAN VEIN, UPPER EXTREMITY (WRVU 15.83) performed by Lida Peter MD at [facility] MAIN OR ??? PRO RELIEVE PRESSURE ON NERVE(S) Left 04/06/2018 (MSURG) CARPAL TUNNEL (WRVU 4.82) performed by Silviano Sparks MD at [facility] MAIN OR ??? PRO REPAIR INTERMEDIATE S/A/T/E 2.6-7.5 CM 04/19/2012 REPAIR INTERMEDIATE WOUND, (NO HANDS OR FEET) 2.6 TO 7.5CM, UPPER EXTREMITY performed by SABRINA SANCHEZ at [facility] MAIN OR ? ? PRO REPAIR INTERMEDIATE S/A/T/E > 30.0 CM Left 04/14/2018 REPAIR INTERMEDIATE WOUND, (NO HANDS OR FEET) >30.0CM, UPPER EXTREMITY (WRVU 5) performed by Yimi Easton MD at [facility] MAIN OR ??? PRO REVISE MEDIAN N/CARPAL TUNNEL SURG Left 04/06/2018 MEDIAN NERVE DECOMPRESSION (CARPAL TUNNEL RELEASE) (WRVU 4.97) performed by Lida Peter MD [facility] MAIN OR ? ? PRO SPLIT GRFT TRUNK, ARM, LEG <100SQCM Left 04/26/2018 SPLIT THICK SKIN GRAFT,100 SQ CM OR LESS, ARMS (WRVU 9.9) performed by Silviano Sparks MD at [facility] MAIN OR ? ? PRO SPLIT GRFT, HEAD, FAC, HAND, FEET <100SQCM N/A 02/20/2016 SPLIT THICKNESS SKIN SPLIT GRAFT,100SQ CM OR LESS, NECK performed by Miguel Angel Moreno MD at [facility] MAIN OR ??? PRO SPLIT GRFT, TRUNK, ARM, LEG EA 100SQCM N/A 04/26/2018 EA.ADDITIONAL 100SQ.CM STSG (WRVU 1.72) performed by Silviano Sparks MD at [facility] MAIN OR ??? PRO UPPER GI ENDOSCOPY, BIOPSY N/A 05/13/2017 EGD WITH BIOPSY (WRVU 2.49) performed by Aditya Barrera MD at [facility] ENDOSCOPY ??? PRO VASCULAR SURGERY PROCEDURE UNLIST Left 11/20/2015 LIGATION\REPAIR AV FISTULA performed by Camilo Ireland MD at [facility] MAIN OR ??? PRO VASCULAR SURGERY PROCEDURE UNLIST Left 11/20/2015 EXCISION VEIN FROM HAND performed by Camilo Ireland MD at [facility] MAIN OR ??? US RENAL TRANSPLANT BIOPSY 12/31/2010 ??? US RENAL TRANSPLANT RIGHT Right 06/04/2018 US Renal Transplant Right 06/04/2018 [facility] RAD ULTRASOUND Functional Status/Social Hx: Social History Socioeconomic History ??? Marital status: Single Spouse name: Not on file ??? Number of children: Not on file ??? Years of education: Not on file ??? Highest education level: Not on file Occupational History ??? 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 Smoking status: Former Smoker [...] stab phlebectomy. Angelina Marrero Vascular Surgery Pager #[phone] documented in this encounter Nursing Notes * [...] COVID test: Lab Results Component Value Date [id number] Not Detected 05/22/2021 Past medical History: Past [...] - straight Home Address confirmed as: [address] [place] [address] Social & Family Supports: All names listed below confirmed with patient as current and correct Extended Emergency Contact Information Primary Emergency Contact: Lucas Ambrose Address: [address] [place] [address] [facility] Mobile Relation: Sibling Secondary Emergency Contact: Yenifer Frausto Address: [address] [place] [address] Mobile Relation: Aunt/Uncle Current Care Provided by: [...] MEDICAID [place] Prescription Coverage: Yes Preferred Pharmacy: [id number] - [place], [place] - [address] [facility] [address] [facility] [phone] [facility] - [place], [place] - [address] [place] [address] Primary Care Provider: Carroll Fuentes DO [phone] Patient/Caregiver Goals of Treatment: Patient will return to assisted living facility Potential Needs for Transition of Care: none Agency Referrals: Return to service: [facility] [address] P: [phone] F: [phone] [facility] [address] [facility] [address] Patient will discharge today. Transportation: no concerns [...] of care planning. Ama GAFFNEY RN Phone: [phone] Pager: [phone] * Op Note - Tristin Marrero MD - 05/22/2021 4:00 PM EST [facility] Operative Note Patient Name: Christy Ambrose : [id number] MR#: [id number] Case Date: 05/22/2021 Surgeon: Surgeon(s) and Role: [...] Implant Name Type Inv. Item Serial No. Numerical Control Tool Programmer Lot No. LRB No. Used Action GRAFT VASCULAR [id number] STRAIGHT HEPARIN COATED STANDARD ([id number]) - [id number] IMPLANTS GRAFT VASCULAR [id number] STRAIGHT HEPARIN COATED STANDARD ([id number]) [id number] [employer] Right 1 Implanted GRAFT VASCULAR [id number] STRAIGHT HEPARIN COATED THIN WALL ([id number]) - [id number] IMPLANTS GRAFT VASCULAR [id number] STRAIGHT HEPARIN COATED THIN WALL ([id number]) [id number] [employer] Right 1 Wasted Associated attestation - Odalis Tong MD - 05/23/2021 10:18 AM EST Attestation: Case Date: 05/22/2021 I was present and scrubbed for the entire procedure. ODALIS TONG MD 05/23/2021 * Consult Note - Ortega Girard MD - 05/22/2021 3:54 PM EST [facility] HYPERTENSION/ NEPHROLOGY INPATIENT CONSULTATION PATIENT: Christy Ambrose : 1960 REASON FOR CONSULTATION: Management of ESRD and new right thigh graft referred by Dr. 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 HD center: [facility] Days: MWF Access: [facility] Outpatient dialysis prescription - Time: 4H - [...] AV Fistula Evaluations 11/30/2019 Sabrina Velez MD [facility] INTERVENTIONL RAD ??? IR DIALYSIS ACCESS - AV FISTULA EVALUATIONS 01/07/2021 IR Dialysis Access - AV Fistula Evaluations 01/07/2021 Sabrina Velez MD [facility] INTERVENTIONL RAD ??? IR DIALYSIS ACCESS - TUNNELED LINE 07/30/2018 IR Dialysis Access - Tunneled Line 07/30/2018 Walt Lin MD [facility] INTERVENTIONL RAD ??? IR DIALYSIS ACCESS - TUNNELED LINE 08/30/2018 IR Dialysis Access - Tunneled Line 08/30/2018 Erwin Simon APRN [facility] INTERVENTIONL RAD ??? IR DIALYSIS ACCESS - TUNNELED LINE 12/27/2020 IR Dialysis Access - Tunneled Line 12/27/2020 Kanu Apple MD [facility] INTERVENTIONL RAD ??? IR DIALYSIS ACCESS - TUNNELED LINE 01/23/2021 IR Dialysis Access - Tunneled Line 01/23/2021 Kanu Apple MD [facility] INTERVENTIONL RAD ??? IR DIALYSIS ACCESS - TUNNELED LINE 03/20/2021 IR Dialysis Access - Tunneled Line 03/20/2021 Tab Harmon MD [facility] INTERVENTIONL RAD ??? KIDNEY TRANSPLANT KIDNEY [...] 12.03) performed by Odalis Tong MD at [facility] OR ? ? PRO DEBRIDEMENT SUBCUTANEOUS TISSUE 20 SQCM/< Left 02/20/2016 DEBRIDEMENT SKIN AND SUBCU, HEAD/NECK performed by Miguel Angel Moreno MD at [facility] OR ??? PRO DECOMPRESS FOREARM, BRACH ART EXPLOR Left 04/06/2018 FASCIOTOMY, FOREARM, WITH BRACHIAL ARTERY EXPLORATION (WRVU 8.41) performed by Lida Peter MDat [facility] OR ??? PRO DIRECT REPAIR RUPTURED ANEURYSM, AXILLO-BRACHIAL ARM INCIS Left 04/06/2018 @REPAIR, RUPTURED AXILLARY OR BRACHIAL ARTERY ANEURYSM BY ARM INCISION (WRVU *) performed by Lida Peter MD at [facility] OR ??? PRO EXC PAROTD, TOTAL, UNILAT RAD NECK Left 02/05/2016 @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, TOTAL, WITH UNILATERAL RADICAL NECK DISSECTION performed by Miguel Angel Moreno MD at [facility] OR ??? PRO EXC SKIN MALIG [...] 6.25) performed by Odalis Tong MD at [facility] OR ??? PRO NEGATIVE PRESSURE WOUND THERAPY, LESS THAN OR EQUAL TO 50 SQCM Left 04/19/2018 DRESSING CHANGE (VAC ASSISTED) UP TO 50SQ.CM (WRVU 0.55) performed by Odalis Tong MD [facility] MAIN OR ??? PRO REBL VES GRAFT, UP EXTREM Left 04/06/2018 REPAIR BLOOD VESSEL WITH GRAFT OTHER THAN VEIN, UPPER EXTREMITY (WRVU 15.83) performed by Lida Peter MD at [facility] MAIN OR ??? PRO RELIEVE PRESSURE ON NERVE(S) Left 04/06/2018 (MSURG) CARPAL TUNNEL (WRVU 4.82) performed by Silviano Sparks MD at [facility] MAIN OR ??? PRO REPAIR INTERMEDIATE S/A/T/E 2.6-7.5 CM 04/19/2012 REPAIR INTERMEDIATE WOUND, (NO HANDS OR FEET) 2.6 TO 7.5CM, UPPER EXTREMITY performed by SABRINA SANCHEZ at [facility] MAIN OR ? ? PRO REPAIR INTERMEDIATE S/A/T/E > 30.0 CM Left 04/14/2018 REPAIR INTERMEDIATE WOUND, (NO HANDS OR FEET) >30.0CM, UPPER EXTREMITY (WRVU 5) performed by Yimi Easton MD at [facility] MAIN OR ??? PRO REVISE MEDIAN N/CARPAL TUNNEL SURG Left 04/06/2018 MEDIAN NERVE DECOMPRESSION (CARPAL TUNNEL RELEASE) (WRVU 4.97) performed by Lida Peter MD [facility] OR ? ? PRO SPLIT GRFT TRUNK, ARM, LEG <100SQCM Left 04/26/2018 SPLIT THICK SKIN GRAFT,100 SQ CM OR LESS, ARMS (WRVU 9.9) performed by Silviano Sparks MD at [facility] MAIN OR ? ? PRO SPLIT GRFT, HEAD, FAC, HAND, FEET <100SQCM N/A 02/20/2016 SPLIT THICKNESS SKIN SPLIT GRAFT,100SQ CM OR LESS, NECK performed by Miguel Angel Moreno MD at [facility] MAIN OR ??? PRO SPLIT GRFT, TRUNK, ARM, LEG EA 100SQCM N/A 04/26/2018 EA.ADDITIONAL 100SQ.CM STSG (WRVU 1.72) performed by Silviano Sparks MD at [facility] MAIN OR ??? PRO UPPER GI ENDOSCOPY, BIOPSY N/A 05/13/2017 EGD WITH BIOPSY (WRVU 2.49) performed by Aditya Barrera MD at [facility] ENDOSCOPY ??? PRO VASCULAR SURGERY PROCEDURE UNLIST Left 11/20/2015 LIGATION\REPAIR AV FISTULA performed by Camilo Ireland MD at [facility] MAIN OR ??? PRO VASCULAR SURGERY PROCEDURE UNLIST Left 11/20/2015 EXCISION VEIN FROM HAND performed by Camilo Ireland MD at [facility] MAIN OR ??? US RENAL TRANSPLANT BIOPSY 12/31/2010 ??? US RENAL TRANSPLANT RIGHT Right 06/04/2018 US Renal Transplant Right 06/04/2018 [facility] RAD ULTRASOUND FH: Family History Problem [...] Operative Note Patient Name: Christy Ambrose : [id number] MR#: [id number] Case Date: 05/22/2021 Surgeon: Surgeon(s) and Role: [...] Implant Name Type Inv. Item Serial No. Numerical Control Tool Programmer Lot No. LRB No. Used Action GRAFT VASCULAR [id number] STRAIGHT HEPARIN COATED STANDARD ([id number]) - [id number] IMPLANTS GRAFT VASCULAR [id number] STRAIGHT HEPARIN COATED STANDARD ([id number]) [id number] [employer] Right 1 Implanted GRAFT VASCULAR [id number] STRAIGHT HEPARIN COATED THIN WALL ([id number]) - [id number] IMPLANTS GRAFT VASCULAR [id number] STRAIGHT HEPARIN COATED THIN WALL ([id number]) [id number] [employer] - ANUJ [...] Phleb Veins - Extrem - To 20 ([id number]) 05/22/2021 12:11 PM EST ESRD (end stage renal disease) Pre-op testing Anastomosis, Av, Any Site ([id number]) 05/22/2021 12:11 PM EST ESRD (end stage [...] Text Report Department: Vascular Surgery Lab Patient: [id number] (ARNOL, CHRISTY) CPT: 87192 ICD10: N18.6;Z99.2 Referring Physician: CRYSTAL OCHOA ?? [...] 5:21 AM EST) Neutrophil % 72.5 % [facility] Neutrophil Absolute 6.02 1.70 - 6.10 x10(3)/[facility] LAB[facility] Lymph % 16.2 % [facility] Lymphocytes Abs 1.3 0.9 - 3.2 x10(3)/[facility] Monocyte % 10.0 % [facility] Monocyte Abs 0.8 0.3 - 0.9 x10(3)/[facility] LABORAT[facility] Eos % 0.4 % [facility] Eosinophils Abs 0.0 0.0 - 0.4 x10(3)/[facility] Basophil % 0.4 % [facility] Baso Absolute 0.0 0.0 - 0.1 x10(3)/[facility] LABORATORY Immature Gran % 0.50 % [facility] Comment: Immature granulocytes(IG's)percentage and absolute count will include metamyelocytes, myelocytes, and promyelocytes. Blood smears from CBCs yielding IG's will be scanned manually for concordance. If this scan disagrees with the automated IG or if promyelocytes are noted, a manual differential will be performed. Immature Gran Absolute 0.04 0.00 - 0.04 x10(3)/[facility] Blood 05/23/2021 5:21 AM EST 05/23/2021 5:28 AM EST Narrative Resulting Agency Comment Spec In Lab Tristin Marrero MD HEMATOLOGY ORDERABL ES Performing Organization Address City/State/[facility] Co de Phone Number [facility] [place] [phone] * (ABNORMAL) Hemogram (05/23/2021 5:21 AM EST) White Blood Cell 8.3 4.0 - 9.5 x10(3)/mc L [facility] Red Blood Cell 3.26(L) 4.58 - 5.54 x10(6)/mc L [facility] Hemoglobin 10.7(L) 13.7 - 16.5 g/dL [facility] Hematocrit 31.6(L) 40.5 - 48.5 % [facility] Mean Cell Volume 96.9(H) 82.9 - 93.1 fL [facility] Mean Cell Hemoglobin 32.8(H) 27.5 - 32.1 pg [facility] Mean Cell Hemoglobin Concentration 33.9 32.0 - 35.7 g/dL [facility] Platelet 143(L) 145 - 357 x10(3)/ L [facility] RDW Standard Deviation 47.2(H) 36.0 - 45.0 [facility] RDW coefficient of variation 13.2 11.4 - 13.8 % [facility] Mean Platelet Volume 8.9 7.6 - 12.9 [facility] NRBC% auto 0.0 % [facility] NRBC Absolute 0.000 0.000 - 0.000 x10(3)/mc L [facility] Blood 05/23/2021 5:21 AM EST 05/23/2021 5:28 AM EST Narrative Resulting Agency Comment Spec In Lab Tristin Marrero MD HEMATOLOGY ORDERABL ES [facility] [place] [address] * Phosphorus (05/23/2021 5:21 AM EST) Phosphorus 3.9 2.5 - 4.5 mg/dL [facility] Blood 05/23/2021 5:21 AM EST 05/23/2021 5:28 AM EST Narrative Resulting Agency Comment Spec In Lab Odalis Tong MD CHEMISTRY ORDER KELLY Performing Organization Address City/[facility]/ZIP Co de Phone Number [facility] [place] [address] * Magnesium (05/23/2021 5:21 AM EST) Magnesium 0.74 0.69 - 1.07 mmol/L [facility] Blood 05/23/2021 5:21 AM EST 05/23/2021 5:28 AM EST Narrative Resulting Agency Comment Spec In Lab Odalis Tong MD CHEMISTRY ORDER KELLY [facility] [place] [address] * (ABNORMAL) Basic Metabolic Panel (non-fasting) (05/23/2021 5:21 AM EST) Glucose 100 65 - 199 mg/dL [facility] Comment:Diabetes: >=200 mg/d L plus symptoms Blood Urea Nitrogen 23(H) 10 - 20 mg/dL [facility] Creatinine 5.34(H) 0.80 - 1.50 mg/dL [facility] Comment:result rechecked-bm Sodium 135 135 - 145 mmol/L [facility] Potassium 5.1(H) 3.5 - 5.0 mmol/L [facility] Comment: Please note: ??Patients with WBC >100,000 may have falsely elevated Potassium levels. ??For accurate Potassium quantification in these patients send serum separator tube (gold top) for subsequent determinations. ??Contact the Clinical Chemistry Laboratory if there are any questions. Chloride 96(L) 98 - 107 mmol/L [facility] Carbon Dioxide 27 22 - 31 mmol/L [facility] Anion Gap 12 5 - 15 mmol/L [facility] Calcium 8.3(L) 8.5 - 10.5 mg/dL [facility] Est Glomerular Filtration Rate 11(L) >=60 mL/min/1. 73 m?? [facility] Comment: This patient? s [...] Lab Odalis Tong MD CHEMISTRY ORDER KELLY [facility] [place] [address] * (ABNORMAL) Basic Metabolic Panel (non-fasting) (05/22/2021 3:35 PM EST) Glucose 129 65 - 199 mg/dL [facility] Comment:Diabetes: >=200 mg/d L plus symptoms Blood Urea Nitrogen 30(H) 10 - 20 mg/dL [facility] Creatinine 6.52(H) 0.80 - 1.50 mg/dL [facility] Sodium 137 135 - 145 mmol/L [facility] Potassium 6.0(H) 3.5 - 5.0 mmol/L [facility] Comment: result rechecked-nb Please [...] [place] Chloride 100 98 - 107 mmol/L [facility] Carbon Dioxide 27 22 - 31 mmol/L [facility] Anion Gap 10 5 - 15 mmol/L [facility] Calcium 8.9 8.5 - 10.5 mg/dL [facility] Est Glomerular Filtration Rate 9(L) >=60 mL/min/1. 73 m?? [facility] Comment: This patient? s [...] Lab Bowen Jessica MD CHEMISTRY ORDERA BLES [facility] [place] [address] * (ABNORMAL) Blood Gas Venous (05/22/2021 3:25 PM EST) pH, Venous 7.42 7.32 - 7.42 [facility] PCO2, Venous 40(L) 41 - 51 mmHg [facility] PO2, Venous 132(H) 25 - 40 mmHg [facility] Bicarbonate, Venous 25.3 mmol/L [facility] Base Excess, Venous 0.8 mmol/L [facility] Hgb Blood Gas 11.8(L) 13.7 - 16.5 g/dL [facility] Oxyhemoglobin, Venous 97.9 % [facility] Carboxyhemoglob in, Venous 0.2 % [facility] Comment: Nonsmokers: 0.5-1.5% COHB Smokers: Variable, but usually less than 10% Toxic: 20-30% COHB Lethal: Greater than 60% COHB Methemoglobin, Venous 0.3 <=1.5 % [facility] Na Whole Blood 135 135 - 145 mmol/L [facility] K Whole Blood 5.9(H) 3.5 - 5.0 mmol/L [facility] Comment: Please note: Patients with WBC >100,000 may have falsely elevated Potassium levels. Contact the Clinical Chemistry Laboratory if there are any questions. ICa Whole Blood 1.13(L) 1.15 - 1.33 mmol/L [facility] Comment: Note: ??Total bilirubin higher than 20 mg/dL may lead to falsely low ionized calcium. CL Whole Blood 100 98 - 107 mmol/L [facility] Gluc Whole Bld 149 65 - 199 mg/dL [facility] Comment:Diabetes: >=200 mg/d L plus symptoms Lactate WB 0.9 0.5 - 2.2 mmol/L [facility] Blood Gas Source Venous [facility] Blood Venous Draw / Unknown 05/22/2021 3:25 PM EST 05/22/2021 3:57 PM EST Narrative Resulting Agency Comment Spec In Lab Odalis Tong MD CHEMISTRY ORDER KELLY Performing Organization Address City/[facility]/ZIP Co de Phone Number [facility] [place] [address] * POCT Glucose (05/22/2021 3:00 PM EST) Glucose, POC 153 65 - 199 mg/dL [facility] Comment: Supplemental ranges: <140 mg/dL before meals <180 mg/dL all other times of the day Blood 05/22/2021 3:00 PM EST 05/22/2021 3:00 PM EST Odalis Tong MD POINT OF CARE T EST ORDERABLES Performing Organization Address City/[facility]/ZIP Co de Phone Number [facility] [place] [address] * (ABNORMAL) BLOOD GAS 2 ARTERIAL (05/22/2021 2:42 PM EST) pH, Arterial 7.49(H) 7.35 - 7.45 [facility] PCO2, Arterial 34(L) 35 - 45 mmHg [facility] PO2, Arterial 173(H) 85 - 104 mmHg [facility] Bicarbonate, Arterial 25.6 20.0 - 26.0 mmol/L [facility] Base Excess, Arterial 2.2 -3.0 - 3.0 mmol/L [facility] Hgb Blood Gas 10.5(L) 13.7 - 16.5 g/dL [facility] Oxyhemoglobin, Arterial 98.4(H) 94.0 - 97.0 % [facility] Carboxyhemoglobi n, Arterial 0.3 % [facility] Comment: Nonsmokers: 0.5-1.5% COHB Smokers: Variable, but usually less than 10% Toxic: 20-30% COHB Lethal: Greater than 60% COHB Methemoglobin, Arterial 0.3 <=1.5 % [facility] Na Whole Blood 132(L) 135 - 145 mmol/L [facility] K Whole Blood 6.8(Criti constance) 3.5 - 5.0 mmol/L [facility] Comment: Noted by optical instrument specialist. Critical notified to Padmini Felipe by optical instrument specialist immediately following run time. Please note: Patients with WBC >100,000 may have falsely elevated Potassium levels. Contact the Clinical Chemistry Laboratory if there are any questions. ICa Whole Blood 1.05(L) 1.15 - 1.33 mmol/L [facility] Comment: Note: ??Total bilirubin higher than 20 mg/dL may lead to falsely low ionized calcium. CL Whole Blood 98 98 - 107 mmol/L [facility] Gluc Whole Bld 146 65 - 199 mg/dL [facility] Comment:Diabetes: >=200 mg/d L plus symptoms. Lactate WB 0.8 0.5 - 2.2 mmol/L [facility] FIO2 Art 50 % [facility] PF Ratio Art 346 [facility] Blood 05/22/2021 2:42 PM EST 05/22/2021 2:42 PM EST Odalis Tong MD POINT OF CARE T EST ORDERABLES [facility] [place] [address] * POCT Glucose (05/22/2021 2:19 PM EST) Pathologist [facility] Glucose, POC 179 65 - 199 mg/dL [facility] Comment: Supplemental ranges: <140 mg/dL before meals <180 mg/dL all other times of the day Blood 05/22/2021 2:19 PM EST 05/22/2021 2:19 PM EST Odalis Tong MD POINT OF CARE T EST ORDERABLES Performing Organization Address [facility] Co de Phone Number [facility] [place] [address] * COVID-19 PCR (05/22/2021 1:55 PM EST) [facility] SARS-CoV-2 RNA (Rapid) Not Detected Not Detected [facility] Comment: This result should [...] using the Simplexa COVID-19 Direct Assay by [facility] as authorized by the FDA issued Emergency [...] Department of Pathology and Laboratory Medicine at [facility], certified under the Clinical Laboratory [...] fact sheets at the following FDA website: https://www.fda.gov/medical-devices/bhyatuwoncm-rwlsaie-2870-gbkpb-05-jpngmfzcv- use-a rfrpqmszokbdf-glmqooa-nskhusk/khkvf-exnjwcazhyz-kwpn SARS-CoV-2 Source SEMICONDUCTOR ENGINEER Swab OR RY [facility] Nasopharyngeal Swab 05/22/20 21 1:55 PM EST 05/22/2021 1:55 PM EST Comment:Symptoms->Surveillan ce Narrative Resulting Agency Comment Spec In Lab Odalis Tong MD MICROBIOLOGY - GENERAL ORDERABLES [facility] [place] [address] * (ABNORMAL) BLOOD GAS 2 ARTERIAL (05/22/2021 1:30 PM EST) pH, Arterial 7.48(H) 7.35 - 7.45 [facility] PCO2, Arterial 39 35 - 45 mmHg [facility] PO2, Arterial 185(H) 85 - 104 mmHg [facility] Bicarbonate, Arterial 28.5(H) 20.0 - 26.0 mmol/L [facility] Base Excess, Arterial 4.5(H) -3.0 - 3.0 mmol/L [facility] Hgb Blood Gas 10.6(L) 13.7 - 16.5 g/dL [facility] Oxyhemoglobin, Arterial 98.5(H) 94.0 - 97.0 % [facility] Carboxyhemoglob in, Arterial 0.3 % [facility] Comment: Nonsmokers: 0.5-1.5% COHB Smokers: Variable, but usually less than 10% Toxic: 20-30% COHB Lethal: Greater than 60% COHB Methemoglobin, Arterial 0.3 <=1.5 % [facility] Na Whole Blood 134(L) 135 - 145 mmol/L [facility] K Whole Blood 7.1(Criti constance) 3.5 - 5.0 mmol/L [facility] Comment: Noted by optical instrument specialist. Critical notified to Padmini Felipe by optical instrument specialist immediately following run time. Please note: Patients with WBC >100,000 may have falsely elevated Potassium levels. Contact the Clinical Chemistry Laboratory if there are any questions. ICa Whole Blood 1.03(L) 1.15 - 1.33 mmol/L [facility] Comment: Note: ??Total bilirubin higher than 20 mg/dL may lead to falsely low ionized calcium. CL Whole Blood 98 98 - 107 mmol/L [facility] Gluc Whole Bld 99 65 - 199 mg/dL [facility] Comment:Diabetes: >=200 mg/d L plus symptoms. Lactate WB 0.7 0.5 - 2.2 mmol/L [facility] FIO2 Art 61 % [facility] Flow Art 0.7 LPM [facility] PF Ratio Art 303 [facility] Temp Art 35.0 Celsius [facility] Blood 05/22/2021 1:30 PM EST 05/22/2021 1:30 PM EST Odalis Tong MD POINT OF CARE T EST ORDERABLES Performing Organization Address City/State/[facility] Co de Phone Number [facility] [place] [address] * (ABNORMAL) Potassium (05/22/2021 1:25 PM EST) [facility] Potassium 7.3(Criti constance) 3.5 - 5.0 mmol/L [facility] Comment: Called by: , [...] MD CHEMISTRY ORDER KELLY Performing Organization Address [facility] Co de Phone Number [facility] [place] [address] * (ABNORMAL) BLOOD GAS 2 ARTERIAL (05/22/2021 12:30 PM EST) [facility] pH, Arterial 7.36 7.35 - 7.45 [facility] PCO2, Arterial 57(H) 35 - 45 mmHg [facility] PO2, Arterial 38(Critica l) 85 - 104 mmHg [facility] Comment: Not noted by optical instrument specialist. Critical notified to Noted by optical instrument specialist. Critical notified to Padmini Felipe by optical instrument specialist immediately following run time. Bicarbonate, Arterial 31.8(H) 20.0 - 26.0 mmol/L [facility] Base Excess, Arterial 6.4(H) -3.0 - 3.0 mmol/L [facility] Hgb Blood Gas 12.3(L) 13.7 - 16.5 g/dL [facility] Oxyhemoglobin, Arterial 64.1(L) 94.0 - 97.0 % [facility] Carboxyhemoglob in, Arterial 0.9 % [facility] Comment: Nonsmokers: 0.5-1.5% COHB Smokers: Variable, but usually less than 10% Toxic: 20-30% COHB Lethal: Greater than 60% COHB Methemoglobin, Arterial 0.3 <=1.5 % [facility] Na Whole Blood 137 135 - 145 mmol/L [facility] K Whole Blood 6.7(Critic al) 3.5 - 5.0 mmol/L [facility] Comment: Please note: Patients with WBC >100,000 may have falsely elevated Potassium levels. Contact the Clinical Chemistry Laboratory if there are any questions. Not noted by optical instrument specialist. Critical notified to Noted by optical instrument specialist. Critical notified to Padmini Felipe by optical instrument specialist immediately following run time. ICa Whole Blood 1.07(L) 1.15 - 1.33 mmol/L [facility] Comment: Note: ??Total bilirubin higher than 20 mg/dL may lead to falsely low ionized calcium. CL Whole Blood 98 98 - 107 mmol/L [facility] Gluc Whole Bld 90 65 - 199 mg/dL [facility] Comment:Diabetes: >=200 mg/d L plus symptoms. Lactate WB 1.4 0.5 - 2.2 mmol/L [facility] Blood 05/22/2021 12:3 0 PM EST 05/22/2021 12:30 PM EST Odalis Tong MD POINT OF CARE T EST ORDERABLES [facility] [place] [address] documented in this encounter Visit Diagnoses Diagnosis [...] 100 mL infusion (COMPLETED) 2 g, Intravenous, [employer] TO [employer]R., 1 dose, On Wed05/22/21 at [...] first. documented in this encounter Care Teams Occupational Therapy Aide Relationship Specialty Start Date End Date Carroll Fuentes DO [address] [place], [place] [address] [place] [address] PCP - General 09/23/11 10/20/22 documented as of this encounter
--- OUTSIDE RECORDS SUMMARY | 2024-05-23 13:15 | XMS_ITS | Encounter Summary ---
Author Organization [facility] Address [facility] [place] [address] Care Team Providers Care Rn Psychiatric Name Role Phone Alfredo, Carroll MIX Primary Care Provider [phone] Encounter Details Date Type Department Care Team (Late st Contact Info) Description 06/06/2021 1:00 PM EST Office Visit [place] [address] Nilda Minaya APRN [facility] [place] [address] ESRD (end stage renal disease) on dialysis [...] this encounter Progress Notes * Nilda Minaya, COMMUNICATION INSTRUCTOR - 06/06/2021 2:00 PM EST OUTPATIENT VASCULAR [...] ml/min N18.4 ??? 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 05/05/21 per [facility], patient taking 2 capsules in the [...] Denies Functional Status/Social Hx: Lives in [place], Rides Bike, Denies Tobacco Use Family Hx: [...] disease documented in this encounter Care Teams Rn Psychiatric Relationship Specialty Start Date End Date Carroll Fuentes DO [facility] [address] [place] [address] PCP - General 09/23/11 10/20/22 documented as of this encounter
--- OUTSIDE RECORDS SUMMARY | 2024-05-23 13:15 | XMS_ITS | Encounter Summary ---
Author Organization [facility] Address [facility] [place] [address] Care Team Providers Care Spring Fitter Helper Name Role Phone AlfredoCarroll allison Primary Care Provider Encounter Details Date Type Department Care Team (Late st Contact Info) Description 05/02/2021 3:15 PM EDT Office Visit [place] [address] Odalis Elias MD [facility] [address] [place] [address] ESRD (end stage renal disease) Social History [...] ml/min N18.4 ??? 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 [...] by mouth 2 times daily. 05/05/21 per [facility], patient taking 2 capsules in the [...] - Denies Functional Status/Social Hx: Lives [facility], Drives Car, Denies Tobacco Use Family Hx: [...] disease documented in this encounter Care Teams Spring Fitter Helper Relationship Specialty Start Date End Date Carroll Fuentes DO [address] [place] [address] PCP - General 09/23/11 10/20/22 documented as of this encounter
--- OUTSIDE RECORDS SUMMARY | 2024-05-23 13:15 | XMS_ITS | Encounter Summary ---
Author Organization [facility] [place] [address] Care Team Providers Care Adjunct Sociology Professor Name Role Phone AlfredoCarroll allison Primary Care Provider Reason for Referral * Diagnostic Test (Routine) - Specialty Diagnoses / Procedures Referred By Shashi ko Referred To Contact Diagnoses ESRD (end stage renal disease) Pre-op testing Procedures First Time Hemodialysis access Aries Tong MD [facility] [place] [address] [facility] [address] [place] [id number] Referral ID Status Reason Start Date Expiration Date Visits Requested Visits Authorized [id number] Specialty Service Requested 04/30/2021 04/30/2022 1 1 Encounter Details Date Type Department Care Team (Late st Contact Info) Description 04/30/2021 Orders [place] [address] Crista Dasilva CMA ESRD (end [...] Text Report Department: Vascular Surgery Lab Patient: [id number] (ARNOL, CHRISTY) CPT: 47667 ICD10: Z01.818;N18.6;Z 01.818 Referring Physician: ARIES TONG [...] unspecified documented in this encounter Care Teams Adjunct Sociology Professor Relationship Specialty Start Date End Date Carroll Fuentes DO [address] [place] [address] PCP - General 09/23/11 10/20/22 documented as of this encounter
--- OUTSIDE RECORDS SUMMARY | 2024-05-23 13:15 | XMS_ITS | Encounter Summary ---
Author Organization [facility] [place] [address] Care Team Providers Care Hot Dip Galvanizer Name Role Phone Carroll Fuentes DO Primary Care Provider Reason for Referral * Diagnostic Test (Routine) - Closed Specialty Diagnoses / Procedures Referred By Shashi ko Referred To Contact Radiology Diagnoses ESRD (end stage renal disease) Procedures IR Dialysis Access - Tunneled Line Carroll Baires MD [facility] [place] [address] [place] [address] Referral ID Status Reason Start Date Expiration Date V isits Requested Visits Authorized [id number] Closed Specialty Service Requested 03/12/2021 09/09/2022 1 1 Reason for Visit * Diagnostic Test (Routine) - Closed Specialty Diagnoses / Procedures Referred By Shashi ko Referred To Contact Radiology Diagnoses ESRD (end stage renal disease) Procedures IR Dialysis Access - Tunneled Line Carroll Baires MD [facility] [place] [address] [place] [address] Referral ID Status Reason Start Date Expiration Date V isits Requested Visits Authorized [id number] Closed Specialty Service Requested 03/12/2021 09/09/2022 1 1 Encounter Details Date Type Department Care Team (Latest Contact Info) Description 03/20/2021 6:32 AM EDT - 03/20/2021 11:59 PM EDT Hospital [place] [address] Carroll Baires MD [facility] [place] [address] ESRD (end stage renal disease) Discharge Disposition: [...] Velazco RN - 03/20/2021 8:10 AM EDT [facility] Vascular and Interventional Radiology Discharge Instructions [...] is during regular office hours, please call [phone]. If it is after regular office hours, or on weekends or holidays, please call [phone] and ask to speak to the Change Advisor stationary steam engineer for Interventional Radiology. You have received medication [...] 7:25 AM EDT [facility] Name: HCRISTY AMBROSE Date of : 1960 AGE: 60 y.o. Address: [address] [place] [address] (home) Mobile: Telephone Information: Referring Provider: Carroll Baires REASON FOR VISIT: Order Questions Answers Where will study be performed? [facility] Radiology [120] Is the patient [...] HD Tunneled line exchange / angioplasty at [facility] Local only, tolerated well ? 0930 to [...] Questions Answers Where will study be performed? [facility] Radiology [120] Is the patient [...] ml/min N18.4 ??? 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 IR DIALYSIS ACCESS - AV FISTULA EVALUATIONS 01/07/2021 IR Dialysis Access - AV Fistula Evaluations 01/07/2021 Sabrina Velez MD [facility] INTERVENTIONL RAD ??? IR DIALYSIS ACCESS - TUNNELED LINE 07/30/2018 IR Dialysis Access - Tunneled Line 07/30/2018 Walt Lin MD [facility] INTERVENTIONL RAD ??? IR DIALYSIS ACCESS - TUNNELED LINE 08/30/2018 IR Dialysis Access - Tunneled Line 08/30/2018 Erwin Simon APRN [facility] INTERVENTIONL RAD ??? IR DIALYSIS ACCESS - TUNNELED LINE 12/27/2020 IR Dialysis Access - Tunneled Line 12/27/2020 Kanu Apple MD [facility] INTERVENTIONL RAD ??? IR DIALYSIS ACCESS - TUNNELED LINE 01/23/2021 IR Dialysis Access - Tunneled Line 01/23/2021 Kanu Apple MD [facility] INTERVENTIONL RAD ??? KIDNEY TRANSPLANT KIDNEY TRANSPLANT / RECIPIENT/LT Procedure Date: 11/26/2002 ??? PRO CREAT AV FISTULA, NON-AUTOGENOUS GRAFT Right 12/13/2018 PLACEMENT, AV HEMODIALYSIS GRAFT, SYNTHETIC GRAFT, UPPER EXTREMITY (WRVU 12.03) performed by Mary Garay MD at [facility] MAIN OR ? ? PRO DEBRIDEMENT SUBCUTANEOUS TISSUE 20 SQCM/< Left 02/20/2016 DEBRIDEMENT SKIN AND SUBCU, HEAD/NECK performed by Miguel Angel Moreno MD at [facility] MAIN OR ??? PRO DECOMPRESS FOREARM, BRACH ART EXPLOR Left 04/06/2018 FASCIOTOMY, FOREARM, WITH BRACHIAL ARTERY EXPLORATION (WRVU 8.41) performed by Lida Peter, Edgard [facility] OR ??? PRO DIRECT REPAIR RUPTURED ANEURYSM, AXILLO-BRACHIAL ARM INCIS Left 04/06/2018 @REPAIR, RUPTURED AXILLARY OR BRACHIAL ARTERY ANEURYSM BY ARM INCISION (WRVU *) performed by Lida Peter MD at [facility] OR ??? PRO EXC PAROTD, TOTAL, UNILAT RAD NECK Left 02/05/2016 @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, TOTAL, WITH UNILATERAL RADICAL NECK DISSECTION performed by Miguel Angel Moreno MD at [facility] OR ??? PRO EXC SKIN MALIG 3.1-4CM FACE, FACIAL Left 02/05/2016 EXC MALIGNANT LESION, 3.1 TO 4.0CM, FACE performed by Miguel Angel Moreno MD at [facility] OR ? ? PRO EXC SKIN MALIG >4CM TRUNK, ARM, LEG 04/19/2012 EXC MALIGNANT LESION, MICHAEL > 4.0CM, TRUNK performed by SABRINA SANCHEZ at [facility] OR ??? PRO LAP, RADICAL NEPHRECTOMY Left 05/31/2017 @LAPAROSCOPY, RADICAL NEPHRECTOMY (WRVU 25.06) performed by Jax Mills MD at [facility] OR ??? PRO LIGATN ANGIOACCESS AV FISTULA Left 04/19/2018 LIGATION OR BANDING OF HEMODIALYSIS FISTULA OR GRAFT UPPER EXTREMITY (WRVU 6.25) performed by Odalis Elias MD at [facility] OR ??? PRO NEGATIVE PRESSURE WOUND THERAPY, LESS THAN OR EQUAL TO 50 SQCM Left 04/19/2018 DRESSING CHANGE (VAC ASSISTED) UP TO 50SQ.CM (WRVU 0.55) performed by Odalis Elias MD [facility] OR ??? PRO REBL VES GRAFT, UP EXTREM Left 04/06/2018 REPAIR BLOOD VESSEL WITH GRAFT OTHER THAN VEIN, UPPER EXTREMITY (WRVU 15.83) performed by Lida Peter MD at [facility] MAIN OR ??? PRO RELIEVE PRESSURE ON NERVE(S) Left 04/06/2018 (MSURG) CARPAL TUNNEL (WRVU 4.82) performed by Silviano Sparks MD at [facility] OR ??? PRO REPAIR INTERMEDIATE S/A/T/E 2.6-7.5 CM 04/19/2012 REPAIR INTERMEDIATE WOUND, (NO HANDS OR FEET) 2.6 TO 7.5CM, UPPER EXTREMITY performed by SABRINA SANCHEZ at [facility] OR ? ? PRO REPAIR INTERMEDIATE S/A/T/E > 30.0 CM Left 04/14/2018 REPAIR INTERMEDIATE WOUND, (NO HANDS OR FEET) >30.0CM, UPPER EXTREMITY (WRVU 5) performed by Yimi Easton MD at [facility] OR ??? PRO REVISE MEDIAN N/CARPAL TUNNEL SURG Left 04/06/2018 MEDIAN NERVE DECOMPRESSION (CARPAL TUNNEL RELEASE) (WRVU 4.97) performed by Lida Peter MD [facility] OR ? ? PRO SPLIT GRFT TRUNK, ARM, LEG <100SQCM Left 04/26/2018 SPLIT THICK SKIN GRAFT,100 SQ CM OR LESS, ARMS (WRVU 9.9) performed by Silviano Sparks MD at [facility] MAIN OR ? ? PRO SPLIT GRFT, HEAD, FAC, HAND, FEET <100SQCM N/A 02/20/2016 SPLIT THICKNESS SKIN SPLIT GRAFT,100SQ CM OR LESS, NECK performed by Miguel Angel Moreno MD at [facility] OR ??? PRO SPLIT GRFT, TRUNK, ARM, LEG EA 100SQCM N/A 04/26/2018 EA.ADDITIONAL 100SQ.CM STSG (WRVU 1.72) performed by Silviano Sparks MD at [facility] MAIN OR ??? PRO UPPER GI ENDOSCOPY, BIOPSY N/A 05/13/2017 EGD WITH BIOPSY (WRVU 2.49) performed by Aditya Barrera MD at [facility] ENDOSCOPY ??? PRO VASCULAR SURGERY PROCEDURE UNLIST Left 11/20/2015 LIGATION\REPAIR AV FISTULA performed by Camilo Ireland MD at [facility] MAIN OR ??? PRO VASCULAR SURGERY PROCEDURE UNLIST Left 11/20/2015 EXCISION VEIN FROM HAND performed by Camilo Ireland MD at [facility] MAIN OR ??? US RENAL TRANSPLANT BIOPSY 12/31/2010 ??? US RENAL TRANSPLANT RIGHT Right 06/04/2018 US Renal Transplant Right 06/04/2018 [facility] RAD ULTRASOUND Social history and [...] End stage renal disease, malfunctioning venous catheter, long-term durable venous access for dialysis Procedure Summary: [...] barrier technique. ?? Sedation: None Technique: A strawhat sizer fluoroscopic image of the chest showed no [...] tract. An 12 mm x 4 cm [facility] ENGRAVER PANTOGRAPH balloon was advanced over one of the [...] EDT) Potassium 5.5(H) 3.5 - 5.0 mmol/L [facility] [...] In Lab Carroll Baires MD CHEMISTRY ORDERABLES [facility] [place] [address] * (ABNORMAL) Hemogram (03/20/2021 7:05 AM EDT) White Blood Cell 5.6 4.0 - 9.5 x10(3)/mc L [facility] Red Blood Cell 3.53(L) 4.58 - 5.54 x10(6)/mc L [facility] Hemoglobin 11.7(L) 13.7 - 16.5 gm/dL [facility] Hematocrit 35.8(L) 40.5 - 48.5 % [facility] Mean Cell Volume 101.4(H) 82.9 - 93.1 fL [facility] Mean Cell Hemoglobin 33.1(H) 27.5 - 32.1 pg [facility] Mean Cell Hemoglobin Concentration 32.7 32.0 - 35.7 gm/dL [facility] Platelet 190 145 - 357 x10(3)/mc L [facility] RDW Standard Deviation 49.2(H) 36.0 - 45.0 fL [facility] RDW coefficient of variation 13.3 11.4 - 13.8 % [facility] Mean Platelet Volume 9.0 7.6 - 12.9 fL [facility] NRBC% auto 0.0 % [facility] NRBC Absolute 0.000 0.000 - 0.000 x10(3)/mc L [facility] Blood 03/20/2021 7:05 AM EDT 03/20/2021 7:15 AM EDT Narrative Resulting Agency Comment Spec In Lab Carroll Baires MD HEMATOLOGY ORDERABLE S Performing Organization Address City/State/[facility] Co de Phone Number [facility] [place] [address] documented in this encounter Visit Diagnoses Diagnosis [...] mLs documented in this encounter Care Teams Hot Dip Galvanizer Relationship Specialty Start Date End Date Carroll Fuentes DO [address] [place] [address] PCP - General 09/23/11 10/20/22 documented as of this encounter
--- OUTSIDE RECORDS SUMMARY | 2024-05-23 13:15 | XMS_ITS | Encounter Summary ---
Author Organization [facility] [place] [address] Care Team Providers Care Pattern Attendant Name Role Phone AlfredoCarroll allison Primary Care Provider [phone] Encounter Details Date Type Department Care Team (Late st Contact Info) Description 05/02/2021 2:30 PM EDT Tech [place] [id number] Real Swan, RVT ESRD (end stage renal [...] Text Report Department: Vascular Surgery Lab Patient: [id number] (ARNOL, CHRISTY) CPT: 52404 ICD10: Z01.818;N18.6;Z 01.818 Referring Physician: ARIES TONG [...] unspecified documented in this encounter Care Teams Pattern Attendant Relationship Specialty Start Date End Date Carroll Fuentes DO [address] [place] [address] PCP - General 09/23/11 10/20/22 documented as of this encounter
--- OUTSIDE RECORDS SUMMARY | 2024-05-23 13:15 | XMS_ITS | Encounter Summary ---
Author Organization [facility] Address [facility] [place] [address] Care Team Providers Care Roving Court Reporter Name Role Phone AlfredoCarroll geiger Primary Care Provider [phone] Reason for Visit * Auth/Cert Specialty Diagnoses / Procedures Referred By Shashi ko Referred To Contact Diagnoses ESRD (end stage renal disease) ESRD Procedures PRO CREAT AV FISTULA, NON-AUTOGENOUS GRAFT PLACEMENT, AV HEMODIALYSIS GRAFT, SYNTHETIC GRAFT, UPPER EXTREMITY (WRVU 12.03) Referral ID Status Reason Start Date Expiration Date Visits Re quested Visits Authorized [id number] 1 1 Encounter Details Date Type Department Care Team (Latest Contact Info) Description 04/03/2021 6:21 AM EDT - 04/04/2021 3:25 PM EDT Hospital Encounter [place] [id number] Odalis Tong MD [facility] [place] [address] ESRD (end stage renal disease); Pre-op testing; [...] GFR 15-29 ml/min ??? 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 H/O [...] function and is medically cleared back to [facility] rehab, where pt resides. He will [...] K 5.0 Discharge Condition: Good Discharge to: [facility] (Resident) Future Appointments and Orders Future Appointments and Orders Future Appointments Provider Department Dept Phone 05/02/2021 10:00 AM Nicolás Marte Vascular Lab at [facility] Arrive at: Food Service Technician Area 05/02/2021 11:45 AM Odalis Tong [place] [facility] [place] at: Food Service Technician Area Future Orders Complete By Expires AVF/Established Access Evaluation [[email or web address] Custom] 05/04/2021 04/04/2022 Process Instructions: There is no in-house vascular stores laborer available on weeknights (5pm-8am), weekends, or holidays. IF THIS IS A REQUEST FOR AN EMERGENT STUDY DURING THOSE HOURS, please have the senior provider responsible for the patient page the Vascular Surgery Fellow/Senior Resident site acquisition specialist to discuss options. Scheduling Instructions: Questions: Laterality: Left Which extremity?: Upper Indication for study/signs & symptoms: LUE AV graft placement Question to be answered: patency, flow Preferred [place] [facility] [place] [place] Anticoagulation & Antiplatelet: Anticoagulation: None indicated [...] For any problems or questions please call [phone] YEIMY Fallon, conflict resolution professional Nurse Clinician For issues on weeknights after 5pm and weekends please call [phone] and ask for the Vascular Fellow site acquisition specialist. Nilda Minaya APRN Department of Vascular Surgery [...] For any problems or questions please call [phone] YEIMY Fallon, conflict resolution professional Nurse Clinician For issues on weeknights after 5pm and weekends please call [phone] and ask for the Vascular Fellow site acquisition specialist. documented in this encounter Medications at Time [...] Kohler RN - 04/04/2021 3:24 PM EDT [facility] Short Stay Unit Discharge Note All [...] Villareal RN - 04/04/2021 7:34 AM EDT [facility] Short Stay Unit Shift Note The [...] AV Fistula Evaluations 11/30/2019 Sabrina Velez MD [facility] INTERVENTIONL RAD ??? IR DIALYSIS ACCESS - AV FISTULA EVALUATIONS 01/07/2021 IR Dialysis Access - AV Fistula Evaluations 01/07/2021 Sabrina Velez MD [facility] INTERVENTIONL RAD ??? IR DIALYSIS ACCESS - TUNNELED LINE 07/30/2018 IR Dialysis Access - Tunneled Line 07/30/2018 Walt Lin MD [facility] INTERVENTIONL RAD ??? IR DIALYSIS ACCESS - TUNNELED LINE 08/30/2018 IR Dialysis Access - Tunneled Line 08/30/2018 Erwin Simon, STATION SUPERVISOR [facility] INTERVENTIONL RAD ??? IR DIALYSIS ACCESS - TUNNELED LINE 12/27/2020 IR Dialysis Access - Tunneled Line 12/27/2020 Kanu Apple MD [facility] INTERVENTIONL RAD ??? IR DIALYSIS ACCESS - TUNNELED LINE 01/23/2021 IR Dialysis Access - Tunneled Line 01/23/2021 Kanu Apple MD [facility] INTERVENTIONL RAD ??? IR DIALYSIS ACCESS - TUNNELED LINE 03/20/2021 IR Dialysis Access - Tunneled Line 03/20/2021 Tab Harmon MD [facility] INTERVENTIONL RAD ??? KIDNEY TRANSPLANT KIDNEY TRANSPLANT / RECIPIENT/LT Procedure Date: 11/26/2002 ??? PRO CREAT AV FISTULA, NON-AUTOGENOUS GRAFT Right 12/13/2018 PLACEMENT, AV HEMODIALYSIS GRAFT, SYNTHETIC GRAFT, UPPER EXTREMITY (WRVU 12.03) performed by Mary Garay MD at [facility] MAIN OR ? ? PRO DEBRIDEMENT SUBCUTANEOUS TISSUE 20 SQCM/< Left 02/20/2016 DEBRIDEMENT SKIN AND SUBCU, HEAD/NECK performed by Miguel Angel Moreno MD at [facility] MAIN OR ??? PRO DECOMPRESS FOREARM, BRACH ART EXPLOR Left 04/06/2018 FASCIOTOMY, FOREARM, WITH BRACHIAL ARTERY EXPLORATION (WRVU 8.41) performed by Lida Peter MDat [facility] MAIN OR ??? PRO DIRECT REPAIR RUPTURED ANEURYSM, AXILLO-BRACHIAL ARM INCIS Left 04/06/2018 @REPAIR, RUPTURED AXILLARY OR BRACHIAL ARTERY ANEURYSM BY ARM INCISION (WRVU *) performed by Lida Peter MD at [facility] MAIN OR ??? PRO EXC PAROTD, TOTAL, UNILAT RAD NECK Left 02/05/2016 @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, TOTAL, WITH UNILATERAL RADICAL NECK DISSECTION performed by Miguel Angel Moreno MD at [facility] MAIN OR ??? PRO EXC SKIN MALIG 3.1-4CM FACE, FACIAL Left 02/05/2016 EXC MALIGNANT LESION, 3.1 TO 4.0CM, FACE performed by Miguel Angel Moreno MD at [facility] MAIN OR ? ? PRO EXC SKIN MALIG >4CM TRUNK, ARM, LEG 04/19/2012 EXC MALIGNANT LESION, MICHAEL > 4.0CM, TRUNK performed by SABRINA SANCHEZ at [facility] OR ??? PRO LAP, RADICAL NEPHRECTOMY Left 05/31/2017 @LAPAROSCOPY, RADICAL NEPHRECTOMY (WRVU 25.06) performed by Jax Mills MD at [facility] OR ??? PRO LIGATN ANGIOACCESS AV FISTULA Left 04/19/2018 LIGATION OR BANDING OF HEMODIALYSIS FISTULA OR GRAFT UPPER EXTREMITY (WRVU 6.25) performed by Odalis Tong MD at [facility] MAIN OR ??? PRO NEGATIVE PRESSURE WOUND THERAPY, LESS THAN OR EQUAL TO 50 SQCM Left 04/19/2018 DRESSING CHANGE (VAC ASSISTED) UP TO 50SQ.CM (WRVU 0.55) performed by Odalis Tong MD [facility] OR ??? PRO REBL VES GRAFT, UP EXTREM Left 04/06/2018 REPAIR BLOOD VESSEL WITH GRAFT OTHER THAN VEIN, UPPER EXTREMITY (WRVU 15.83) performed by Lida Peter MD at [facility] MAIN OR ??? PRO RELIEVE PRESSURE ON NERVE(S) Left 04/06/2018 (MSURG) CARPAL TUNNEL (WRVU 4.82) performed by Silviano Sparks MD at [facility] MAIN OR ??? PRO REPAIR INTERMEDIATE S/A/T/E 2.6-7.5 CM 04/19/2012 REPAIR INTERMEDIATE WOUND, (NO HANDS OR FEET) 2.6 TO 7.5CM, UPPER EXTREMITY performed by SABRINA SANCHEZ at [facility] MAIN OR ? ? PRO REPAIR INTERMEDIATE S/A/T/E > 30.0 CM Left 04/14/2018 REPAIR INTERMEDIATE WOUND, (NO HANDS OR FEET) >30.0CM, UPPER EXTREMITY (WRVU 5) performed by Yimi Easton MD at [facility] MAIN OR ??? PRO REVISE MEDIAN N/CARPAL TUNNEL SURG Left 04/06/2018 MEDIAN NERVE DECOMPRESSION (CARPAL TUNNEL RELEASE) (WRVU 4.97) performed by Lida Peter MD [facility] OR ? ? PRO SPLIT GRFT TRUNK, ARM, LEG <100SQCM Left 04/26/2018 SPLIT THICK SKIN GRAFT,100 SQ CM OR LESS, ARMS (WRVU 9.9) performed by Silviano Sparks MD at [facility] MAIN OR ? ? PRO SPLIT GRFT, HEAD, FAC, HAND, FEET <100SQCM N/A 02/20/2016 SPLIT THICKNESS SKIN SPLIT GRAFT,100SQ CM OR LESS, NECK performed by Miguel Angel Moreno MD at [facility] MAIN OR ??? PRO SPLIT GRFT, TRUNK, ARM, LEG EA 100SQCM N/A 04/26/2018 EA.ADDITIONAL 100SQ.CM STSG (WRVU 1.72) performed by Silviano Sparks MD at [facility] MAIN OR ??? PRO UPPER GI ENDOSCOPY, BIOPSY N/A 05/13/2017 EGD WITH BIOPSY (WRVU 2.49) performed by Aditya Barrera MD at [facility] ENDOSCOPY ??? PRO VASCULAR SURGERY PROCEDURE UNLIST Left 11/20/2015 LIGATION\REPAIR AV FISTULA performed by Camilo Ireland MD at [facility] MAIN OR ??? PRO VASCULAR SURGERY PROCEDURE UNLIST Left 11/20/2015 EXCISION VEIN FROM HAND performed by Camilo Ireland MD at [facility] MAIN OR ??? US RENAL TRANSPLANT BIOPSY 12/31/2010 ??? US RENAL TRANSPLANT RIGHT Right 06/04/2018 US Renal Transplant Right 06/04/2018 [facility] RAD ULTRASOUND Family Hx: Negative for [...] proceed. Angelina Devries Marrero Vascular Surgery Pager #[phone] documented in this encounter Miscellaneous Notes * Consult Note - Crystal Mcdermott MD - 04/04/2021 11:32 AM EDT NEPHROLOGY CONSULT NOTE Reason for consult: ESRD/HD HPI: 60yo man s/p creation of LUE AVG. Patient seen and examined on dialysis. Clinical and laboratory data reviewed. Stable treatment. No issues with dialysis or access. 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 They could not accommodate him at [...] AV Fistula Evaluations 11/30/2019 Sabrina Velez MD [facility] INTERVENTIONL RAD ??? IR DIALYSIS ACCESS - AV FISTULA EVALUATIONS 01/07/2021 IR Dialysis Access - AV Fistula Evaluations 01/07/2021 Sabrina Velez MD [facility] INTERVENTION[facility] RAD ??? IR DIALYSIS ACCESS - TUNNELED LINE 07/30/2018 IR Dialysis Access - Tunneled Line 07/30/2018 Walt Lin MD [facility] INTERVENTIONL RAD ??? IR DIALYSIS ACCESS - TUNNELED LINE 08/30/2018 IR Dialysis Access - Tunneled Line 08/30/2018 Erwin Simon, CATRACHITO [facility] INTERVENTIONL RAD ??? IR DIALYSIS ACCESS - TUNNELED LINE 12/27/2020 IR Dialysis Access - Tunneled Line 12/27/2020 Kanu Apple MD [facility] INTERVENTIONL RAD ??? IR DIALYSIS ACCESS - TUNNELED LINE 01/23/2021 IR Dialysis Access - Tunneled Line 01/23/2021 Kanu Apple MD [facility] INTERVENTIONL RAD ??? IR DIALYSIS ACCESS - TUNNELED LINE 03/20/2021 IR Dialysis Access - Tunneled Line 03/20/2021 Tab Harmon MD [facility] INTERVENTIONL RAD ??? KIDNEY TRANSPLANT KIDNEY TRANSPLANT / RECIPIENT/LT Procedure Date: 11/26/2002 ??? PRO CREAT AV FISTULA, NON-AUTOGENOUS GRAFT Right 12/13/2018 PLACEMENT, AV HEMODIALYSIS GRAFT, SYNTHETIC GRAFT, UPPER EXTREMITY (WRVU 12.03) performed by Mary Garay MD at [facility] MAIN OR ??? PRO CREAT AV FISTULA, NON-AUTOGENOUS GRAFT Left 04/03/2021 PLACEMENT, AV HEMODIALYSIS GRAFT, SYNTHETIC GRAFT, UPPER EXTREMITY (WRVU 12.03) performed by Odalis Tong MD at [facility] MAIN OR ? ? PRO DEBRIDEMENT SUBCUTANEOUS TISSUE 20 SQCM/< Left 02/20/2016 DEBRIDEMENT SKIN AND SUBCU, HEAD/NECK performed by Miguel Angel Moreno MD at [facility] MAIN OR ??? PRO DECOMPRESS FOREARM, BRACH ART EXPLOR Left 04/06/2018 FASCIOTOMY, FOREARM, WITH BRACHIAL ARTERY EXPLORATION (WRVU 8.41) performed by Lida Peter MDat [facility] MAIN OR ??? PRO DIRECT REPAIR RUPTURED ANEURYSM, AXILLO-BRACHIAL ARM INCIS Left 04/06/2018 @REPAIR, RUPTURED AXILLARY OR BRACHIAL ARTERY ANEURYSM BY ARM INCISION (WRVU *) performed by Lida Peter MD at [facility] MAIN OR ??? PRO EXC PAROTD, TOTAL, UNILAT RAD NECK Left 02/05/2016 @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, TOTAL, WITH UNILATERAL RADICAL NECK DISSECTION performed by Miguel Angel Moreno MD at [facility] OR ??? PRO EXC SKIN MALIG 3.1-4CM FACE, FACIAL Left 02/05/2016 EXC MALIGNANT LESION, 3.1 TO 4.0CM, FACE performed by Miguel Angel Moreno MD at [facility] OR ? ? PRO EXC SKIN MALIG >4CM TRUNK, ARM, LEG 04/19/2012 EXC MALIGNANT LESION, MICHAEL > 4.0CM, TRUNK performed by SABRINA SANCHEZ at [facility] MAIN OR ??? PRO LAP, RADICAL NEPHRECTOMY Left 05/31/2017 @LAPAROSCOPY, RADICAL NEPHRECTOMY (WRVU 25.06) performed by Jax Mills MD at [facility] MAIN OR ??? PRO LIGATN ANGIOACCESS AV FISTULA Left 04/19/2018 LIGATION OR BANDING OF HEMODIALYSIS FISTULA OR GRAFT UPPER EXTREMITY (WRVU 6.25) performed by Odalis Tong MD at [facility] MAIN OR ??? PRO NEGATIVE PRESSURE WOUND THERAPY, LESS THAN OR EQUAL TO 50 SQCM Left 04/19/2018 DRESSING CHANGE (VAC ASSISTED) UP TO 50SQ.CM (WRVU 0.55) performed by Odalis Tong MD [facility] OR ??? PRO REBL VES GRAFT, UP EXTREM Left 04/06/2018 REPAIR BLOOD VESSEL WITH GRAFT OTHER THAN VEIN, UPPER EXTREMITY (WRVU 15.83) performed by Lida Peter MD at [facility] MAIN OR ??? PRO RELIEVE PRESSURE ON NERVE(S) Left 04/06/2018 (MSURG) CARPAL TUNNEL (WRVU 4.82) performed by Silviano Sparks MD at [facility] OR ??? PRO REPAIR INTERMEDIATE S/A/T/E 2.6-7.5 CM 04/19/2012 REPAIR INTERMEDIATE WOUND, (NO HANDS OR FEET) 2.6 TO 7.5CM, UPPER EXTREMITY performed by SABRINA SANCHEZ at [facility] OR ? ? PRO REPAIR INTERMEDIATE S/A/T/E > 30.0 CM Left 04/14/2018 REPAIR INTERMEDIATE WOUND, (NO HANDS OR FEET) >30.0CM, UPPER EXTREMITY (WRVU 5) performed by Yimi Easton MD at [facility] MAIN OR ??? PRO REVISE MEDIAN N/CARPAL TUNNEL SURG Left 04/06/2018 MEDIAN NERVE DECOMPRESSION (CARPAL TUNNEL RELEASE) (WRVU 4.97) performed by Lida Peter MD [facility] MAIN OR ? ? PRO SPLIT GRFT TRUNK, ARM, LEG <100SQCM Left 04/26/2018 SPLIT THICK SKIN GRAFT,100 SQ CM OR LESS, ARMS (WRVU 9.9) performed by Silviano Sparks MD at [facility] MAIN OR ? ? PRO SPLIT GRFT, HEAD, FAC, HAND, FEET <100SQCM N/A 02/20/2016 SPLIT THICKNESS SKIN SPLIT GRAFT,100SQ CM OR LESS, NECK performed by Miguel Angel Moreno MD at [facility] MAIN OR ??? PRO SPLIT GRFT, TRUNK, ARM, LEG EA 100SQCM N/A 04/26/2018 EA.ADDITIONAL 100SQ.CM STSG (WRVU 1.72) performed by Silviano Sparks MD at [facility] MAIN OR ??? PRO UPPER GI ENDOSCOPY, BIOPSY N/A 05/13/2017 EGD WITH BIOPSY (WRVU 2.49) performed by Aditya Barrera MD at [facility] ENDOSCOPY ??? PRO VASCULAR SURGERY PROCEDURE UNLIST Left 11/20/2015 LIGATION\REPAIR AV FISTULA performed by Camilo Ireland MD at [facility] MAIN OR ??? PRO VASCULAR SURGERY PROCEDURE UNLIST Left 11/20/2015 EXCISION VEIN FROM HAND performed by Camilo Ireland MD at [facility] MAIN OR ??? US RENAL TRANSPLANT BIOPSY 12/31/2010 ??? US RENAL TRANSPLANT RIGHT Right 06/04/2018 US Renal Transplant Right 06/04/2018 [facility] RAD ULTRASOUND Current Facility-Administered Medications Medication [...] Not on file Occupational History ??? 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 Smoking status: Former Smoker [...] after dialysis. Crystal Mcdermott MD Nephrology Pager: [phone] * Op Note - Tristin Marrero MD - 04/03/2021 2:16 PM EDT [facility] [place] Patient Name: Adama Ram : [id number] MR#: [id number] Case Date: 04/03/2021 Surgeon: Surgeon(s) and Role: [...] itsbranches were controlled with vessel loops. A [place] blade scalpel was used to create a [...] the graft was cut to size. A [place] blade scalpel was used to create a [...] Implant Name Type Inv. Item Serial No. Construction Safety Manager Lot No. LRB No. Used Action GRAFT VASCULAR [id number] STRAIGHT HEPARIN COATED STANDARD ([id number]) - [id number] IMPLANTS GRAFT VASCULAR [id number] STRAIGHT HEPARIN COATED STANDARD ([id number]) [id number] [employer] - ANUJ MAJANOE AN Left 1 Implanted Associated attestation - Odalis Tong MD - 04/04/2021 7:45 AM EDT Attestation: Case Date: 04/03/2021 I was present and scrubbed for the entire procedure. ODALIS TONG MD 04/04/2021 * Brief Op Note - Tristin Marrero MD - 04/03/2021 11:57 AM EDT Brief Operative Note Patient Name: Adama Ram : [id number] MR#: [id number] Case Date: 04/03/2021 Surgeon: Surgeon(s) and Role: [...] Implant Name Type Inv. Item Serial No. Construction Safety Manager Lot No. LRB No. Used Action GRAFT VASCULAR [id number] STRAIGHT HEPARIN COATED STANDARD ([id number]) - [id number] IMPLANTS GRAFT VASCULAR [id number] STRAIGHT HEPARIN COATED STANDARD ([id number]) [id number] [employer] - ANUJ GARCIA AN Left 1 Implanted documented in this encounter Plan of Treatment Not on file documented as of this encounter Procedures Procedure Name Priority Date/Time Associated Diagnosis Comments HC HEPATITIS B SURFACE AG Routine 04/03/2021 5:38 PM EDT RAPID COVID-19 PCR ([facility]) Routine 04/03/2021 9:39 AM EDT Creat Av Fistula, Non-Autogenous Graft (21453) 04/03/2021 7:55 AM EDT ESRD HC VENIPUNCTURE STAT 04/03/2021 6:55 AM EDT ESRD (end stage renal disease) Pre-op testing PLACEMENT, AV HEMODIALYSIS GRAFT, SYNTHETIC GRAFT Routine 04/03/2021 6:35 AM EDT documented in this encounter Results * Hepatitis B Surface Antigen (04/03/2021 5:38 PM EDT) Hepatitis B Surface Antigen Negative Negative [facility] Blood 04/03/2021 5:38 PM EDT 04/03/2021 6:42 PM EDT Narrative Resulting Agency Comment Spec In Lab Crystal Mcdermott MD CHEMISTRY ORDERABLE S [facility] [place] [address] * COVID-19 PCR (04/03/2021 9:39 AM EDT) SARS-CoV-2 RNA (Rapid) Not Detected Not Detected [facility] Comment: This result should be [...] using the Simplexa COVID-19 Direct Assay by Doodle as authorized by the FDA issued Emergency [...] Department of Pathology and Laboratory Medicine at [facility], certified under the Clinical Laboratory [...] fact sheets at the following FDA website: https://www.fda.gov/medical-devices/olhboohjfqo-mpbsvjs-4927-onvbw-76-pcgfwgulr- use-a mouuqjrkeexjb-hwwqbfy-jsprprr/uhmib-yjwowvvdzxi-usij SARS-CoV-2 Source COMPRESSED GASES TESTER Swab [facility] Nasopharyngeal Swab 04/03/20 9:39 AM EDT 04/03/2021 9:50 AM EDT Comment:Symptoms->Surveillan ce Narrative Resulting Agency Comment Spec In Lab Odalis Tong MD MICROBIOLOGY - GENERAL ORDERABLES Performing Organization Address City/[facility]/ZIP Co de Phone Number [facility] [place] [address] * Potassium (04/03/2021 6:55 AM EDT) Potassium 5.0 3.5 - 5.0 mmol/L [facility] [...] MD CHEMISTRY ORDER KELLY Performing Organization Address [facility] Co de Phone Number [facility] [place] [address] documented in this encounter Visit Diagnoses Diagnosis [...] premix bags) infusion (COMPLETED) 2 g, Intravenous, ASSOCIATE SALES [employer] 1 dose, On Mariza 04/03/21 [...] first. documented in this encounter Care Teams Roving [address] Reporter Relationship Specialty Start Date End Date Carroll Fuentes DO [address] [place] [address] PCP - General 09/23/11 10/20/22 documented as of this encounter
--- OUTSIDE RECORDS SUMMARY | 2024-05-23 13:15 | XMS_ITS | Encounter Summary ---
Author Organization Replaced By [facility] Address [facility] [place] [address] Care Team Providers Care Operations Dispatcher Name Role Phone Alfredo Carroll MIX Primary Care Provider [phone] Reason for Visit * Auth/Cert Specialty Diagnoses [...] Expiration Date Visits Re quested Visits Authorized [id number] 1 1 Encounter Details Date Type Department Care Team (Late st Contact Info) Description 05/22/2021 11:45 AM EST - 05/22/2021 3:30 PM EST Surgery [place] [address] Odalis Tong MD [facility] [place] [address] AV FISTULA CREATION, DIRECT HEMODIALYSIS, ANY SITE, [...] GFR 15-29 ml/min ??? 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 senior living current use of immunosuppressive drug ??? H/O [...] currently undergoes HD via a R [facility]. He takes a daily ASA ?? Last [...] Discharge Condition: Good Discharge to: Care Facility: [facility] Future Appointments and Orders Future Appointments and Orders Future Appointments Provider Department Dept Phone 06/06/2021 1:30 PM Nicolás Marte Vascular Lab at [facility] Arrive at: [employer] Operator Area [phone] 06/06/2021 2:00 PM Nilda Minaya APRN Vascular Surgery at [facility] Arrive at: [employer] Operator Area Future Orders Complete By Expires AVF/Established Access Evaluation [VAS61 Custom] 06/22/2021 12/22/2021 Process Instructions: There is no in-house vascular photographic laboratory supervisor available on weeknights (5pm-8am), weekends, or holidays. IF THIS IS A REQUEST FOR AN EMERGENT STUDY DURING THOSE HOURS, please have the senior provider responsible for the patient page the Vascular Surgery Fellow/Senior Resident electronic service technician to discuss options. Scheduling Instructions: Questions: Laterality: Right Which extremity?: Lower Indication for study/signs & symptoms: s/p loop AVG Question to be answered: flow? stenosis? Preferred location?: [facility] Clinics Anticoagulation & Antiplatelet: Anticoagulation: None Antiplatelet: Agent: ASA Indication: ASCVD Intended Duration: long lines operator For questions regarding these medications, please [...] in 2-3 weeks in Vascular Surgery For [place]: Dressings to right thigh can be removed [...] For any problems or questions please call [phone] For issues on weeknights after 5pm and weekends please call [phone] and ask for the Vascular Fellow electronic service technician. documented in this encounter Discharge Instructions * [...] For any problems or questions please call [phone] For issues on weeknights after 5pm and weekends please call [phone] and ask for the Vascular Fellow electronic service technician. documented in this encounter Medications at Time [...] Jr gave report to SAVANNA Salinas from [facility]. Discharge summary and medication record printed and included in manila envelope accompanying patient. IVs removed. Belongings gathered. Pt has no concerns at this time. Pt escorted in wheelchair to main entrance by staff, will be met by RCT tour bus driver. 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 Hemodialysis initiated at bedside by student ministries director. Minimal pain currently. Pt oriented to room, call daniels within reach, [facility]. * Angely Martinez, SAVANNA - 05/22/2021 11:34 AM EST Confirmed with staff at [facility], pt's last HD was yesterday. He [...] He currently undergoes HD viaa R [facility]. He takes a daily ASA Last HD [...] ml/min N18.4 ??? 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 senior living current use of immunosuppressive drug Z79.899 ??? [...] AV Fistula Evaluations 11/30/2019 Sabrina Velez MD [facility] INTERVENTIONL RAD ??? IR DIALYSIS ACCESS - AV FISTULA EVALUATIONS 01/07/2021 IR Dialysis Access - AV Fistula Evaluations 01/07/2021 Sabrina Velez MD [facility] INTERVENTIONL RAD ??? IR DIALYSIS ACCESS - TUNNELED LINE 07/30/2018 IR Dialysis Access - Tunneled Line 07/30/2018 Walt Lin MD [facility] INTERVENTIONL RAD ??? IR DIALYSIS ACCESS - TUNNELED LINE 08/30/2018 IR Dialysis Access - Tunneled Line 08/30/2018 Erwin Simon, DOBBY LOOMS PEGGER [facility] INTERVENTIONL RAD ??? IR DIALYSIS ACCESS - TUNNELED LINE 12/27/2020 IR Dialysis Access - Tunneled Line 12/27/2020 Kanu Apple MD [facility] INTERVENTIONL RAD ??? IR DIALYSIS ACCESS - TUNNELED LINE 01/23/2021 IR Dialysis Access - Tunneled Line 01/23/2021 Kanu Apple MD [facility] INTERVENTIONL RAD ??? IR DIALYSIS ACCESS - TUNNELED LINE 03/20/2021 IR Dialysis Access - Tunneled Line 03/20/2021 Tab Harmon MD [facility] INTERVENTIONL RAD ??? KIDNEY TRANSPLANT KIDNEY TRANSPLANT / RECIPIENT/LT Procedure Date: 11/26/2002 ??? PRO CREAT AV FISTULA, NON-AUTOGENOUS GRAFT Right 12/13/2018 PLACEMENT, AV HEMODIALYSIS GRAFT, SYNTHETIC GRAFT, UPPER EXTREMITY (WRVU 12.03) performed by Mary Garay MD at [facility] OR ??? PRO CREAT AV FISTULA, NON-AUTOGENOUS GRAFT Left 04/03/2021 PLACEMENT, AV HEMODIALYSIS GRAFT, SYNTHETIC GRAFT, UPPER EXTREMITY (WRVU 12.03) performed by Odalis Tong MD at [facility] OR ? ? PRO DEBRIDEMENT SUBCUTANEOUS TISSUE 20 SQCM/< Left 02/20/2016 DEBRIDEMENT SKIN AND SUBCU, HEAD/NECK performed by Miguel Angel Moreno MD at [facility] OR ??? PRO DECOMPRESS FOREARM, BRACH ART EXPLOR Left 04/06/2018 FASCIOTOMY, FOREARM, WITH BRACHIAL ARTERY EXPLORATION (WRVU 8.41) performed by Lida Peter MDat [facility] OR ??? PRO DIRECT REPAIR RUPTURED ANEURYSM, AXILLO-BRACHIAL ARM INCIS Left 04/06/2018 @REPAIR, RUPTURED AXILLARY OR BRACHIAL ARTERY ANEURYSM BY ARM INCISION (WRVU *) performed by Lida Peter MD at [facility] MAIN OR ??? PRO EXC PAROTD, TOTAL, UNILAT RAD NECK Left 02/05/2016 @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, TOTAL, WITH UNILATERAL RADICAL NECK DISSECTION performed by Miguel Angel Moreno MD at [facility] OR ??? PRO EXC SKIN MALIG 3.1-4CM FACE, FACIAL Left 02/05/2016 EXC MALIGNANT LESION, 3.1 TO 4.0CM, FACE performed by Miguel Angel Moreno MD at [facility] OR ? ? PRO EXC SKIN MALIG >4CM TRUNK, ARM, LEG 04/19/2012 EXC MALIGNANT LESION, MICHAEL > 4.0CM, TRUNK performed by SABRINA SANCHEZ at [facility] OR ??? PRO LAP, RADICAL NEPHRECTOMY Left 05/31/2017 @LAPAROSCOPY, RADICAL NEPHRECTOMY (WRVU 25.06) performed by Jax Mills MD at [facility] OR ??? PRO LIGATN ANGIOACCESS AV FISTULA Left 04/19/2018 LIGATION OR BANDING OF HEMODIALYSIS FISTULA OR GRAFT UPPER EXTREMITY (WRVU 6.25) performed by Odalis Tong MD at [facility] MAIN OR ??? PRO NEGATIVE PRESSURE WOUND THERAPY, LESS THAN OR EQUAL TO 50 SQCM Left 04/19/2018 DRESSING CHANGE (VAC ASSISTED) UP TO 50SQ.CM (WRVU 0.55) performed by Odalis Tong MD [facility] OR ??? PRO REBL VES GRAFT, UP EXTREM Left 04/06/2018 REPAIR BLOOD VESSEL WITH GRAFT OTHER THAN VEIN, UPPER EXTREMITY (WRVU 15.83) performed by Lida Peter MD at [facility] OR ??? PRO RELIEVE PRESSURE ON NERVE(S) Left 04/06/2018 (MSURG) CARPAL TUNNEL (WRVU 4.82) performed by Silviano Sparks MD at [facility] OR ??? PRO REPAIR INTERMEDIATE S/A/T/E 2.6-7.5 CM 04/19/2012 REPAIR INTERMEDIATE WOUND, (NO HANDS OR FEET) 2.6 TO 7.5CM, UPPER EXTREMITY performed by SABRINA SANCHEZ at [facility] MAIN OR ? ? PRO REPAIR INTERMEDIATE S/A/T/E > 30.0 CM Left 04/14/2018 REPAIR INTERMEDIATE WOUND, (NO HANDS OR FEET) >30.0CM, UPPER EXTREMITY (WRVU 5) performed by Yimi Easton MD at [facility] MAIN OR ??? PRO REVISE MEDIAN N/CARPAL TUNNEL SURG Left 04/06/2018 MEDIAN NERVE DECOMPRESSION (CARPAL TUNNEL RELEASE) (WRVU 4.97) performed by Lida Peter MD [facility] MAIN OR ? ? PRO SPLIT GRFT TRUNK, ARM, LEG <100SQCM Left 04/26/2018 SPLIT THICK SKIN GRAFT,100 SQ CM OR LESS, ARMS (WRVU 9.9) performed by Silviano Sparks MD at [facility] MAIN OR ? ? PRO SPLIT GRFT, HEAD, FAC, HAND, FEET <100SQCM N/A 02/20/2016 SPLIT THICKNESS SKIN SPLIT GRAFT,100SQ CM OR LESS, NECK performed by Miguel Angel Moreno MD at [facility] MAIN OR ??? PRO SPLIT GRFT, TRUNK, ARM, LEG EA 100SQCM N/A 04/26/2018 EA.ADDITIONAL 100SQ.CM STSG (WRVU 1.72) performed by Silviano Sparks MD at [facility] MAIN OR ??? PRO UPPER GI ENDOSCOPY, BIOPSY N/A 05/13/2017 EGD WITH BIOPSY (WRVU 2.49) performed by Aditya Barrera MD at [facility] ENDOSCOPY ??? PRO VASCULAR SURGERY PROCEDURE UNLIST Left 11/20/2015 LIGATION\REPAIR AV FISTULA performed by Camilo Ireland MD at [facility] MAIN OR ??? PRO VASCULAR SURGERY PROCEDURE UNLIST Left 11/20/2015 EXCISION VEIN FROM HAND performed by Camilo Ireland MD at [facility] MAIN OR ??? US RENAL TRANSPLANT BIOPSY 12/31/2010 ??? US RENAL TRANSPLANT RIGHT Right 06/04/2018 US Renal Transplant Right 06/04/2018 [facility] RAD ULTRASOUND Functional Status/Social Hx: Social History Socioeconomic History ??? Marital status: Single Spouse name: Not on file ??? Number of children: Not on file ??? Years of education: Not on file ??? Highest education level: Not on file Occupational History ??? 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 Smoking status: [...] phlebectomy. Angelina Devries Marrero Vascular Surgery Pager #[phone] documented in this encounter Nursing Notes * [...] COVID test: Lab Results Component Value Date [id number] Not Detected 05/22/2021 Past medical History: Past [...] cane - straight Home Address confirmed as: [address] [place] [id number] Social & Family Supports: All names listed below confirmed with patient as current and correct Extended Emergency Contact Information Primary Emergency Contact: Lucas Ambrose Address: [address] [place] [address] [place] [address] [facility] Mobile Relation: Sibling Secondary Emergency Contact: Yenifer Frausto Address: [address] [place] [address] Mobile Relation: Aunt/Uncle Current Care Provided by: [...] MEDICAID [place] Prescription Coverage: Yes Preferred Pharmacy: [id number] AT [facility] & [address] [address] [facility] [address] Primary Care Provider: Carroll Fuentes DO [phone] Patient/Caregiver Goals of Treatment: Patient will return to assisted living facility Potential Needs for Transition of Care: none Agency Referrals: Return to service: [facility] [address] P: [phone] F: [phone] [address] Patient will discharge today. Transportation: no concerns [...] of care planning. Ama GAFFNEY, RN Phone: [phone] Pager: [phone] * Op Note - Tristin Marrero MD - 05/22/2021 4:00 PM EST [facility] Operative Note Patient Name: Christy Ambrose : [id number] MR#: [id number] Case Date: 05/22/2021 Surgeon: Surgeon(s) and Role: [...] Implant Name Type Inv. Item Serial No. Reference Data Expert Lot No. LRB No. Used Action GRAFT VASCULAR [id number] STRAIGHT HEPARIN COATED STANDARD ([id number]) - [id number] IMPLANTS GRAFT VASCULAR [id number] STRAIGHT HEPARIN COATED STANDARD ([id number]) [id number] [employer] Right 1 Implanted GRAFT VASCULAR [id number] STRAIGHT HEPARIN COATED THIN WALL ([id number]) - [id number] IMPLANTS GRAFT VASCULAR [id number] STRAIGHT HEPARIN COATED THIN WALL ([id number]) [id number] [employer] Right 1 Wasted Associated attestation - Odalis Tong MD - 05/23/2021 10:18 AM EST Attestation: Case Date: 05/22/2021 I was present and scrubbed for the entire procedure. ODALIS TONG MD 05/23/2021 * Consult Note - Ortega Girard MD - 05/22/2021 3:54 PM EST [facility] HYPERTENSION/ NEPHROLOGY INPATIENT CONSULTATION PATIENT: Christy Ambrose : 1960 REASON FOR CONSULTATION: Management of ESRD and new right thigh graft referred by Dr. 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 HD center: [facility] Days: MWF Access: [facility] Outpatient dialysis [...] by mouth 2 times daily. 05/05/21 per [facility], patient taking 2 capsules in the [...] AV Fistula Evaluations 11/30/2019 Sabrina Velez MD [facility] INTERVENTIONL RAD ??? IR DIALYSIS ACCESS - AV FISTULA EVALUATIONS 01/07/2021 IR Dialysis Access - AV Fistula Evaluations 01/07/2021 Sabrina Velez MD [facility] INTERVENTIONL RAD ??? IR DIALYSIS ACCESS - TUNNELED LINE 07/30/2018 IR Dialysis Access - Tunneled Line 07/30/2018 Walt Lin MD [facility] INTERVENTIONL RAD ??? IR DIALYSIS ACCESS - TUNNELED LINE 08/30/2018 IR Dialysis Access - Tunneled Line 08/30/2018 Erwin Simon, DOBBY LOOMS PEGGER [facility] INTERVENTIONL RAD ??? IR DIALYSIS ACCESS - TUNNELED LINE 12/27/2020 IR Dialysis Access - Tunneled Line 12/27/2020 Kanu Apple MD [facility] INTERVENTIONL RAD ??? IR DIALYSIS ACCESS - TUNNELED LINE 01/23/2021 IR Dialysis Access - Tunneled Line 01/23/2021 Kanu Apple MD [facility] INTERVENTIONL RAD ??? IR DIALYSIS ACCESS - TUNNELED LINE 03/20/2021 IR Dialysis Access - Tunneled Line 03/20/2021 Tab Harmon MD [facility] INTERVENTIONL RAD ??? KIDNEY TRANSPLANT KIDNEY TRANSPLANT / RECIPIENT/LT Procedure Date: 11/26/2002 ??? PRO CREAT AV FISTULA, NON-AUTOGENOUS GRAFT Right 12/13/2018 PLACEMENT, AV HEMODIALYSIS GRAFT, SYNTHETIC GRAFT, UPPER EXTREMITY (WRVU 12.03) performed by Mary Garay MD at [facility] OR ??? PRO CREAT AV FISTULA, NON-AUTOGENOUS GRAFT Left 04/03/2021 PLACEMENT, AV HEMODIALYSIS GRAFT, SYNTHETIC GRAFT, UPPER EXTREMITY (WRVU 12.03) performed by Odalis Tong MD at [facility] MAIN OR ? ? PRO DEBRIDEMENT SUBCUTANEOUS TISSUE 20 SQCM/< Left 02/20/2016 DEBRIDEMENT SKIN AND SUBCU, HEAD/NECK performed by Miguel Angel Moreno MD at [facility] MAIN OR ??? PRO DECOMPRESS FOREARM, BRACH ART EXPLOR Left 04/06/2018 FASCIOTOMY, FOREARM, WITH BRACHIAL ARTERY EXPLORATION (WRVU 8.41) performed by Lida Peter MDat [facility] MAIN OR ??? PRO DIRECT REPAIR RUPTURED ANEURYSM, AXILLO-BRACHIAL ARM INCIS Left 04/06/2018 @REPAIR, RUPTURED AXILLARY OR BRACHIAL ARTERY ANEURYSM BY ARM INCISION (WRVU *) performed by Lida Peter MD at [facility] MAIN OR ??? PRO EXC PAROTD, TOTAL, UNILAT RAD NECK Left 02/05/2016 @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, TOTAL, WITH UNILATERAL RADICAL NECK DISSECTION performed by Miguel Angel Moreno MD at [facility] OR ??? PRO EXC SKIN MALIG 3.1-4CM FACE, FACIAL Left 02/05/2016 EXC MALIGNANT LESION, 3.1 TO 4.0CM, FACE performed by Miguel Angel Moreno MD at [facility] OR ? ? PRO EXC SKIN MALIG >4CM TRUNK, ARM, LEG 04/19/2012 EXC MALIGNANT LESION, MICHAEL > 4.0CM, TRUNK performed by SABRINA SANCHEZ at [facility] OR ??? PRO LAP, RADICAL NEPHRECTOMY Left 05/31/2017 @LAPAROSCOPY, RADICAL NEPHRECTOMY (WRVU 25.06) performed by Jax Mills MD at [facility] OR ??? PRO LIGATN ANGIOACCESS AV FISTULA Left 04/19/2018 LIGATION OR BANDING OF HEMODIALYSIS FISTULA OR GRAFT UPPER EXTREMITY (WRVU 6.25) performed by Odalis Tong MD at [facility] MAIN OR ??? PRO NEGATIVE PRESSURE WOUND THERAPY, LESS THAN OR EQUAL TO 50 SQCM Left 04/19/2018 DRESSING CHANGE (VAC ASSISTED) UP TO 50SQ.CM (WRVU 0.55) performed by Odalis Tong MD [facility] MAIN OR ??? PRO REBL VES GRAFT, UP EXTREM Left 04/06/2018 REPAIR BLOOD VESSEL WITH GRAFT OTHER THAN VEIN, UPPER EXTREMITY (WRVU 15.83) performed by Lida Peter MD at [facility] MAIN OR ??? PRO RELIEVE PRESSURE ON NERVE(S) Left 04/06/2018 (MSURG) CARPAL TUNNEL (WRVU 4.82) performed by Silviano Sparks MD at [facility] OR ??? PRO REPAIR INTERMEDIATE S/A/T/E 2.6-7.5 CM 04/19/2012 REPAIR INTERMEDIATE WOUND, (NO HANDS OR FEET) 2.6 TO 7.5CM, UPPER EXTREMITY performed by SABRINA SANCHEZ at [facility] MAIN OR ? ? PRO REPAIR INTERMEDIATE S/A/T/E > 30.0 CM Left 04/14/2018 REPAIR INTERMEDIATE WOUND, (NO HANDS OR FEET) >30.0CM, UPPER EXTREMITY (WRVU 5) performed by Yimi Easton MD at [facility] MAIN OR ??? PRO REVISE MEDIAN N/CARPAL TUNNEL SURG Left 04/06/2018 MEDIAN NERVE DECOMPRESSION (CARPAL TUNNEL RELEASE) (WRVU 4.97) performed by Lida Peter MD [facility] MAIN OR ? ? PRO SPLIT GRFT TRUNK, ARM, LEG <100SQCM Left 04/26/2018 SPLIT THICK SKIN GRAFT,100 SQ CM OR LESS, ARMS (WRVU 9.9) performed by Silviano Sparks MD at [facility] MAIN OR ? ? PRO SPLIT GRFT, HEAD, FAC, HAND, FEET <100SQCM N/A 02/20/2016 SPLIT THICKNESS SKIN SPLIT GRAFT,100SQ CM OR LESS, NECK performed by Miguel Angel Moreno MD at [facility] MAIN OR ??? PRO SPLIT GRFT, TRUNK, ARM, LEG EA 100SQCM N/A 04/26/2018 EA.ADDITIONAL 100SQ.CM STSG (WRVU 1.72) performed by Silviano Sparks MD at [facility] MAIN OR ??? PRO UPPER GI ENDOSCOPY, BIOPSY N/A 05/13/2017 EGD WITH BIOPSY (WRVU 2.49) performed by Aditya Barrera MD at [facility] ENDOSCOPY ??? PRO VASCULAR SURGERY PROCEDURE UNLIST Left 11/20/2015 LIGATION\REPAIR AV FISTULA performed by Camilo Ireland MD at [facility] MAIN OR ??? PRO VASCULAR SURGERY PROCEDURE UNLIST Left 11/20/2015 EXCISION VEIN FROM HAND performed by Camilo Ireland MD at [facility] MAIN OR ??? US RENAL TRANSPLANT BIOPSY 12/31/2010 ??? US RENAL TRANSPLANT RIGHT Right 06/04/2018 US Renal Transplant Right 06/04/2018 [facility] RAD ULTRASOUND FH: Family History Problem [...] Operative Note Patient Name: Christy Ambrose : [id number] MR#: [id number] Case Date: 05/22/2021 Surgeon: Surgeon(s) and Role: [...] Implant Name Type Inv. Item Serial No. Reference Data Expert Lot No. LRB No. Used Action GRAFT VASCULAR [id number] STRAIGHT HEPARIN COATED STANDARD ([id number]) - [id number] IMPLANTS GRAFT VASCULAR [id number] STRAIGHT HEPARIN COATED STANDARD ([id number]) [id number] [employer] Right 1 Implanted GRAFT VASCULAR [id number] STRAIGHT HEPARIN COATED THIN WALL ([id number]) - [id number] IMPLANTS GRAFT VASCULAR [id number] STRAIGHT HEPARIN COATED THIN WALL ([id number]) [id number] [employer] - WL [...] Phleb Veins - Extrem - To 20 (56034) 05/22/2021 12:11 PM EST ESRD (end stage renal disease) Pre-op testing Anastomosis, Av, Any Site (24491) 05/22/2021 12:11 PM EST ESRD (end stage [...] Text Report Department: Vascular Surgery Lab Patient: [id number] (CHRISTY AMBROSE) CPT: 78801 ICD10: N18.6;Z99.2 Referring Physician: CRYSTAL OCHOA ?? [...] 5:21 AM EST) Neutrophil % 72.5 % [facility] Neutrophil Absolute 6.02 1.70 - 6.10 x10(3)/[facility] LABORATORY Lymph % 16.2 % [facility] Lymphocytes Abs 1.3 0.9 - 3.2 x10(3)/[facility] LABORATORY Monocyte % 10.0 % [facility] Monocyte Abs 0.8 0.3 - 0.9 x10(3)/[facility] LABORATORY Eos % 0.4 % [facility] Eosinophils Abs 0.0 0.0 - 0.4 x10(3)/[facility] LABORATORY Basophil % 0.4 % [facility] Baso Absolute 0.0 0.0 - 0.1 x10(3)/[facility] LABORATORY Immature Gran % 0.50 % [facility] Comment: Immature granulocytes(IG's)percentage and absolute count will include metamyelocytes, myelocytes, and promyelocytes. Blood smears from CBCs yielding IG's will be scanned manually for concordance. If this scan disagrees with the automated IG or if promyelocytes are noted, a manual differential will be performed. Immature Gran Absolute 0.04 0.00 - 0.04 x10(3)/[facility] LABORATORY Blood 05/23/2021 5:21 AM EST 05/23/2021 5:28 AM EST Narrative Resulting Agency Comment Spec In Lab Tristin Marrero MD HEMATOLOGY ORDERABL ES [facility] [place] [address] * (ABNORMAL) Hemogram (05/23/2021 5:21 AM EST) White Blood Cell 8.3 4.0 - 9.5 x10(3)/mc L [facility] Red Blood Cell 3.26(L) 4.58 - 5.54 x10(6)/mc L [facility] Hemoglobin 10.7(L) 13.7 - 16.5 g/dL [facility] Hematocrit 31.6(L) 40.5 - 48.5 % [facility] Mean Cell Volume 96.9(H) 82.9 - 93.1 fL [facility] Mean Cell Hemoglobin 32.8(H) 27.5 - 32.1 pg [facility] Mean Cell Hemoglobin Concentration 33.9 32.0 - 35.7 g/dL [facility] Platelet 143(L) 145 - 357 x10(3)/mc L [facility] RDW Standard Deviation 47.2(H) 36.0 - 45.0 fL [facility] RDW coefficient of variation 13.2 11.4 - 13.8 % [facility] Mean Platelet Volume 8.9 7.6 - 12.9 fL [facility] NRBC% auto 0.0 % [facility] NRBC Absolute 0.000 0.000 - 0.000 x10(3)/mc L [facility] Blood 05/23/2021 5:21 AM EST 05/23/2021 5:28 AM EST Narrative Resulting Agency Comment Spec In Lab Tristin Marrero MD HEMATOLOGY ORDERABL ES Performing Organization Address City/[facility]/ZIP Co de Phone Number [facility] [place] [address] * Phosphorus (05/23/2021 5:21 AM EST) [facility] Phosphorus 3.9 2.5 - 4.5 mg/dL [facility] Blood 05/23/2021 5:21 AM EST 05/23/2021 5:28 AM EST Narrative Resulting Agency Comment Spec In Lab Odalis Tong MD CHEMISTRY ORDER KELLY Performing Organization Address City/[facility]/ZIP Co de Phone Number [facility] [place] [address] * Magnesium (05/23/2021 5:21 AM EST) [facility] Magnesium 0.74 0.69 - 1.07 mmol/L [facility] Blood 05/23/2021 5:21 AM EST 05/23/2021 5:28 AM EST Narrative Resulting Agency Comment Spec In Lab Odalis Tong MD CHEMISTRY ORDER KELLY Performing Organization Address [facility] Co de Phone Number [facility] [place] [address] * (ABNORMAL) Basic Metabolic Panel (non-fasting) (05/23/2021 5:21 AM EST) [facility] Glucose 100 65 - 199 mg/dL [facility] Comment:Diabetes: >=200 mg/d L plus symptoms Blood Urea Nitrogen 23(H) 10 - 20 mg/dL [facility] Creatinine 5.34(H) 0.80 - 1.50 mg/dL [facility] Comment:result rechecked-bm Sodium 135 135 - 145 mmol/L [facility] Potassium 5.1(H) 3.5 - 5.0 mmol/L [facility] Comment: Please note: ??Patients with WBC >100,000 may have falsely elevated Potassium levels. ??For accurate Potassium quantification in these patients send serum separator tube (gold top) for subsequent determinations. ??Contact the Clinical Chemistry Laboratory if there are any questions. Chloride 96(L) 98 - 107 mmol/L [facility] Carbon Dioxide 27 22 - 31 mmol/L [facility] Anion Gap 12 5 - 15 mmol/L [facility] Calcium 8.3(L) 8.5 - 10.5 mg/dL [facility] Est Glomerular Filtration Rate 11(L) >=60 mL/min/1. 73 m?? [facility] Comment: This patient? s [...] Lab Odalis Tong MD CHEMISTRY ORDER KELLY [facility] [place] [address] * (ABNORMAL) Basic Metabolic Panel (non-fasting) (05/22/2021 3:35 PM EST) Glucose 129 65 - 199 mg/dL [facility] Comment:Diabetes: >=200 mg/d L plus symptoms Blood Urea Nitrogen 30(H) 10 - 20 mg/dL [facility] Creatinine 6.52(H) 0.80 - 1.50 mg/dL [facility] Sodium 137 135 - 145 mmol/L [facility] Potassium 6.0(H) 3.5 - 5.0 mmol/L [facility] Comment: result rechecked-nb Please [...] Mcneal Chloride 100 98 - 107 mmol/L [facility] Carbon Dioxide 27 22 - 31 mmol/L [facility] Anion Gap 10 5 - 15 mmol/L [facility] Calcium 8.9 8.5 - 10.5 mg/dL [facility] Est Glomerular Filtration Rate 9(L) >=60 mL/min/1. 73 m?? [facility] Comment: This patient? s [...] Lab Bowen Jessica MD CHEMISTRY ORDERA BLES [facility] [place] Organization Address City/State/ZIP Co de Phone Number [facility] [place] [address] * (ABNORMAL) Blood Gas Venous (05/22/2021 3:25 PM EST) pH, Venous 7.42 7.32 - 7.42 [facility] PCO2, Venous 40(L) 41 - 51 mmHg [facility] PO2, Venous 132(H) 25 - 40 mmHg [facility] Bicarbonate, Venous 25.3 mmol/L [facility] Base Excess, Venous 0.8 mmol/L [facility] Hgb Blood Gas 11.8(L) 13.7 - 16.5 g/dL [facility] Oxyhemoglobin, Venous 97.9 % [facility] Carboxyhemoglob in, Venous 0.2 % [facility] Comment: Nonsmokers: 0.5-1.5% COHB Smokers: Variable, but usually less than 10% Toxic: 20-30% COHB Lethal: Greater than 60% COHB Methemoglobin, Venous 0.3 <=1.5 % [facility] Na Whole Blood 135 135 - 145 mmol/L [facility] K Whole Blood 5.9(H) 3.5 - 5.0 mmol/L [facility] Comment: Please note: Patients with WBC >100,000 may have falsely elevated Potassium levels. Contact the Clinical Chemistry Laboratory if there are any questions. ICa Whole Blood 1.13(L) 1.15 - 1.33 mmol/L [facility] Comment: Note: ??Total bilirubin higher than 20 mg/dL may lead to falsely low ionized calcium. CL Whole Blood 100 98 - 107 mmol/L [facility] Gluc Whole Bld 149 65 - 199 mg/dL [facility] Comment:Diabetes: >=200 mg/d L plus symptoms Lactate WB 0.9 0.5 - 2.2 mmol/L [facility] Blood Gas Source Venous [facility] Blood Venous Draw / Unknown 05/22/2021 3:25 PM EST 05/22/2021 3:57 PM EST Narrative Resulting Agency Comment Spec In Lab Odalis Tong MD CHEMISTRY ORDER KELLY Performing Organization Address City/[facility] Co de Phone Number [facility] [place] [address] * POCT Glucose (05/22/2021 3:00 PM EST) Glucose, POC 153 65 - 199 mg/dL [facility] Comment: Supplemental ranges: <140 mg/dL before meals <180 mg/dL all other times of the day Blood 05/22/2021 3:00 PM EST 05/22/2021 3:00 PM EST Odalis Tong MD POINT OF CARE T EST ORDERABLES Performing Organization Address [facility] Phone Number [facility] [place] [address] * (ABNORMAL) BLOOD GAS 2 ARTERIAL (05/22/2021 2:42 PM EST) [facility] Signature pH, Arterial 7.49(H) 7.35 - 7.45 [facility] PCO2, Arterial 34(L) 35 - 45 mmHg [facility] PO2, Arterial 173(H) 85 - 104 mmHg [facility] Bicarbonate, Arterial 25.6 20.0 - 26.0 mmol/L [facility] Base Excess, Arterial 2.2 -3.0 - 3.0 mmol/L [facility] Hgb Blood Gas 10.5(L) 13.7 - 16.5 g/dL [facility] Oxyhemoglobin, Arterial 98.4(H) 94.0 - 97.0 % [facility] Carboxyhemoglobi n, Arterial 0.3 % [facility] Comment: Nonsmokers: 0.5-1.5% COHB Smokers: Variable, but usually less than 10% Toxic: 20-30% COHB Lethal: Greater than 60% COHB Methemoglobin, Arterial 0.3 <=1.5 % [facility] Na Whole Blood 132(L) 135 - 145 mmol/L [facility] K Whole Blood 6.8(Criti constance) 3.5 - 5.0 mmol/L [facility] Comment: Noted by instrumentation manager. Critical notified to Padmini Felipe by instrumentation manager immediately following run time. Please note: Patients with WBC >100,000 may have falsely elevated Potassium levels. Contact the Clinical Chemistry Laboratory if there are any questions. ICa Whole Blood 1.05(L) 1.15 - 1.33 mmol/L [facility] Comment: Note: ??Total bilirubin higher than 20 mg/dL may lead to falsely low ionized calcium. CL Whole Blood 98 98 - 107 mmol/L [facility] Gluc Whole Bld 146 65 - 199 mg/dL [facility] Comment:Diabetes: >=200 mg/d L plus symptoms. Lactate WB 0.8 0.5 - 2.2 mmol/L [facility] FIO2 Art 50 % [facility] PF Ratio Art 346 [facility] Blood 05/22/2021 2:42 PM EST 05/22/2021 2:42 PM EST Odalis Tong MD POINT OF CARE T EST ORDERABLES Performing Organization Address [facility] Co de Phone Number [facility] [place] [address] * POCT Glucose (05/22/2021 2:19 PM EST) Glucose, POC 179 65 - 199 mg/dL [facility] Comment: Supplemental ranges: <140 mg/dL before meals <180 mg/dL all other times of the day Blood 05/22/2021 2:19 PM EST 05/22/2021 2:19 PM EST Odalis Tong MD POINT OF CARE T EST ORDERABLES Performing Organization Address City/[facility] Co de Phone Number [facility] [place] [address] * COVID-19 PCR (05/22/2021 1:55 PM EST) SARS-CoV-2 RNA (Rapid) Not Detected Not Detected [facility] Comment: This result should [...] using the Simplexa COVID-19 Direct Assay by [employer] as authorized by the FDA issued Emergency [...] Department of Pathology and Laboratory Medicine at [facility], certified under the Clinical Laboratory Improvement [...] fact sheets at the following FDA website: https://www.fda.gov/medical-devices/eonlqmvapfc-fisbvmx-9164-dnkvm-55-ghspyzayc- use-a emlkwnlvdewwt-iqhtdhb-thsqmzc/dhuqp-drylhqlzyjg-vjku SARS-CoV-2 Source WHITING [employer] WORKER Swab MA [facility]3] LABORATORY Nasopharyngeal Swab 05/22/20 21 1:55 PM EST 05/22/2021 1:55 PM EST Comment:Symptoms->Surveillan ce Narrative Resulting Agency Comment Spec In Lab Odalis Tong MD MICROBIOLOGY - GENERAL ORDERABLES [facility] [place] [address] * (ABNORMAL) BLOOD GAS 2 ARTERIAL (05/22/2021 1:30 PM EST) pH, Arterial 7.48(H) 7.35 - 7.45 [facility] PCO2, Arterial 39 35 - 45 mmHg [facility] PO2, Arterial 185(H) 85 - 104 mmHg [facility] Bicarbonate, Arterial 28.5(H) 20.0 - 26.0 mmol/L [facility] Base Excess, Arterial 4.5(H) -3.0 - 3.0 mmol/L [facility] Hgb Blood Gas 10.6(L) 13.7 - 16.5 g/dL [facility] Oxyhemoglobin, Arterial 98.5(H) 94.0 - 97.0 % [facility] Carboxyhemoglob in, Arterial 0.3 % [facility] Comment: Nonsmokers: 0.5-1.5% COHB Smokers: Variable, but usually less than 10% Toxic: 20-30% COHB Lethal: Greater than 60% COHB Methemoglobin, Arterial 0.3 <=1.5 % [facility] Na Whole Blood 134(L) 135 - 145 mmol/L [facility] K Whole Blood 7.1(Criti constance) 3.5 - 5.0 mmol/L [facility] Comment: Noted by instrumentation manager. Critical notified to Padmini Felipe by instrumentation manager immediately following run time. Please note: Patients with WBC >100,000 may have falsely elevated Potassium levels. Contact the Clinical Chemistry Laboratory if there are any questions. ICa Whole Blood 1.03(L) 1.15 - 1.33 mmol/L [facility] Comment: Note: ??Total bilirubin higher than 20 mg/dL may lead to falsely low ionized calcium. CL Whole Blood 98 98 - 107 mmol/L [facility] Gluc Whole Bld 99 65 - 199 mg/dL [facility] Comment:Diabetes: >=200 mg/d L plus symptoms. Lactate WB 0.7 0.5 - 2.2 mmol/L [facility] FIO2 Art 61 % [facility] Flow Art 0.7 LPM [facility] PF Ratio Art 303 [facility] Temp Art 35.0 Celsius [facility] Blood 05/22/2021 1:30 PM EST 05/22/2021 1:30 PM EST Odalis Tong MD POINT OF CARE T EST ORDERABLES Performing Organization Address City/State/[facility] Co de Phone Number [facility] [place] [address] * (ABNORMAL) Potassium (05/22/2021 1:25 PM EST) Potassium 7.3(Criti constance) 3.5 - 5.0 mmol/L [facility] Comment: Called by: , [...] Lab Odalis Tong MD CHEMISTRY ORDER KELLY [facility] [place] [address] * (ABNORMAL) BLOOD GAS 2 ARTERIAL (05/22/2021 12:30 PM EST) pH, Arterial 7.36 7.35 - 7.45 [facility] PCO2, Arterial 57(H) 35 - 45 mmHg [facility] PO2, Arterial 38(Critica l) 85 - 104 mmHg [facility] Comment: Not noted by instrumentation manager. Critical notified to Noted by instrumentation manager. Critical notified to Padmini Felipe by instrumentation manager immediately following run time. Bicarbonate, Arterial 31.8(H) 20.0 - 26.0 mmol/L [facility] Base Excess, Arterial 6.4(H) -3.0 - 3.0 mmol/L [facility] Hgb Blood Gas 12.3(L) 13.7 - 16.5 g/dL [facility] Oxyhemoglobin, Arterial 64.1(L) 94.0 - 97.0 % [facility] Carboxyhemoglob in, Arterial 0.9 % [facility] Comment: Nonsmokers: 0.5-1.5% COHB Smokers: Variable, but usually less than 10% Toxic: 20-30% COHB Lethal: Greater than 60% COHB Methemoglobin, Arterial 0.3 <=1.5 % [facility] Na Whole Blood 137 135 - 145 mmol/L [facility] K Whole Blood 6.7(Critic al) 3.5 - 5.0 mmol/L [facility] Comment: Please note: Patients with WBC >100,000 may have falsely elevated Potassium levels. Contact the Clinical Chemistry Laboratory if there are any questions. Not noted by instrumentation manager. Critical notified to Noted by instrumentation manager. Critical notified to Padmini Felipe by instrumentation manager immediately following run time. ICa Whole Blood 1.07(L) 1.15 - 1.33 mmol/L [facility] Comment: Note: ??Total bilirubin higher than 20 mg/dL may lead to falsely low ionized calcium. CL Whole Blood 98 98 - 107 mmol/L [facility] Gluc Whole Bld 90 65 - 199 mg/dL [facility] Comment:Diabetes: >=200 mg/d L plus symptoms. Lactate WB 1.4 0.5 - 2.2 mmol/L [facility] Blood 05/22/2021 12:3 0 PM EST 05/22/2021 12:30 PM EST Odalis Tong MD POINT OF CARE T EST ORDERABLES [facility] [place] [address] documented in this encounter Visit Diagnoses Diagnosis [...] 100 mL infusion (COMPLETED) 2 g, Intravenous, MAORI LIAISON ADVISER TO O.R., 1 dose, On Mariza 05/22/21 [...] first. documented in this encounter Care Teams Operations Dispatcher Relationship Specialty Start Date End Date Carroll Fuentes DO [address] [place] [address] PCP - General 09/23/11 10/20/22 documented as of this encounter
--- OUTSIDE RECORDS SUMMARY | 2024-05-23 13:15 | XMS_ITS | Encounter Summary ---
Author Organization [facility] Address [facility] [place] [address] Care Team Providers Care Ampoule Filler And Sealer Name Role Phone AlfredoCarroll allison Primary Care Provider [phone] Reason for Visit * Auth/Cert Specialty Diagnoses / Procedures Referred By Shashi ko Referred To Contact Diagnoses ESRD (end stage renal disease) ESRD Procedures PRO CREAT AV FISTULA, NON-AUTOGENOUS GRAFT PLACEMENT, AV HEMODIALYSIS GRAFT, SYNTHETIC GRAFT, UPPER EXTREMITY (WRVU 12.03) Referral ID Status Reason Start Date Expiration Date Visits Re quested Visits Authorized [id number] 1 1 Encounter Details Date Type Department Care Team (Late st Contact Info) Description 04/03/2021 7:58 AM EDT Anesthesia Event [place] [address] Ananth Musa MD [facility] [place] [address] Veto Garcia MD [facility] [place] [address] Anesthesia Record Procedure Summary Procedure Name Responsible [...] basilic vein (medial side of arm), left; btke-fvj-efnodd catheter system; 18 gauge, 1 in length, 3/4 in length; Tres Guerrero VAS; intradermal injection, appears comfortable; 0; 04/16/21 (LDA Cleanup utility RA#[id number]); 1650 (LDA Cleanup utility RA#[id number]) 12/13/18 1815 by Moises Guerrero RN 04/16/21 1650 by Reynaldo Mejia 12/27/20; 1637; Righ t; neck; horizontal; Tunneled HD line placement with Dr. Appel under fluoro; LDA not present upon assessment; 11/05/21 12/27/20 1637 by Dania Swartz RN 11/05/21 0000 by Wilfredo Cuenca RN (RETIRED) Peripheral IV Line - Single Lumen 03/20/21; 0707; dorsal arch vein (top of hand), left; oajp-rrv-pbuqvk catheter system; Anatomical Landmarks; 22 gauge; LDA not present upon assessment; 05/22/21; 1241 03/20/21 0707 by Carlos Alberto Butler RN 05/22/21 1241 by Karin Keating CRNA (RETIRED) Percutaneous Central Line - Double Lumen 03/20/21; 0814; internal jugular vein, right; dialysis/apheresis catheter; other (see comments) (14.5Fr); Dr Harmon / Jag FLANAGAN; 14.5Fr x 28cm HemoFlow Ref# [id number] Lot# [id number] expires 08/17/2023; 11/05/21 (LDA not present on [...] Procedure Summary Date: 04/03/21 Room / Location: [address] MAIN OR Anesthesia Start: 757 Anesthesia Stop: 1134 Procedure: PLACEMENT, AV HEMODIALYSIS GRAFT, SYNTHETIC GRAFT, UPPER EXTREMITY (WRVU 12.03) (Left ) Diagnosis: (ESRD) Surgeons: Odalis Elias MD Responsible Provider: Ananth Musa MD Anesthesia Type: general ASA Status: 3 All Anesthesia Providers: Anesthesiologist: Ananth Musa MD Engineer Station Mainline: Veto Garcia MD Vitals Value Taken Time BP 109/68 04/03/21 1145 Temp 36 ??C (96.8 ??F) 04/03/21 1136 Pulse 54 04/03/21 1152 Resp 11 04/03/21 1152 SpO2 94 % 04/03/21 1152 Pain Level 0 04/03/21 1136 Vitals shown include unvalidated device data. Patient Location: PACU/[facility] Level of Consciousness: Awake and [...] AV HEMODIALYSIS GRAFT, SYNTHETIC GRAFT, UPPER EXTREMITY ([facility] Patient Active Problem List Diagnosis ??? [...] 15-29 ml/min ??? 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 senior care current use of immunosuppressive drug ??? H/O [...] Fistula Evaluations 11/30/[address] [facility] INTERVENTIONL RAD ??? IR DIALYSIS ACCESS - AV FISTULA EVALUATIONS 01/07/2021 IR Dialysis Access - AV Fistula Evaluations 01/07/[address] [facility] INTERVENTIONL RAD ??? IR DIALYSIS ACCESS - TUNNELED LINE 07/30/2018 IR Dialysis Access - Tunneled Line 07/30/[address] [facility] INTERVENTIONL RAD ??? IR DIALYSIS ACCESS - TUNNELED LINE 08/30/2018 IR Dialysis Access - Tunneled Line 08/30/2018 Erwin Simon, WELL LOGGING MUD ANALYSIS CAPTAIN [facility] INTERVENTIONL RAD ??? IR DIALYSIS ACCESS - TUNNELED LINE 12/27/2020 IR Dialysis Access - Tunneled Line 12/27/[address] [facility] INTERVENTIONL RAD ??? IR DIALYSIS ACCESS - TUNNELED LINE 01/23/2021 IR Dialysis Access - Tunneled Line 01/23/[address] [facility] INTERVENTIONL RAD ??? IR DIALYSIS ACCESS - TUNNELED LINE 03/20/2021 IR Dialysis Access - Tunneled Line 03/20/[address] [facility] INTERVENTIONL RAD ??? KIDNEY TRANSPLANT KIDNEY TRANSPLANT / RECIPIENT/LT Procedure Date: 11/26/2002 ??? PRO CREAT AV FISTULA, NON-AUTOGENOUS GRAFT Right 12/13/2018 PLACEMENT, AV HEMODIALYSIS GRAFT, SYNTHETIC GRAFT, UPPER EXTREMITY (WRVU 12.03) performed by Mary Garay MD at [facility] MAIN OR ? ? PRO DEBRIDEMENT SUBCUTANEOUS TISSUE 20 SQCM/< Left 02/20/2016 DEBRIDEMENT SKIN AND SUBCU, HEAD/NECK performed by Miguel Angel Moreno MD at [facility] MAIN OR ??? PRO DECOMPRESS FOREARM, BRACH ART EXPLOR Left 04/06/2018 FASCIOTOMY, FOREARM, WITH BRACHIAL ARTERY EXPLORATION (WRVU 8.41) performed by Lida Peter MDat [facility] MAIN OR ??? PRO DIRECT REPAIR RUPTURED ANEURYSM, AXILLO-BRACHIAL ARM INCIS Left 04/06/2018 @REPAIR, RUPTURED AXILLARY OR BRACHIAL ARTERY ANEURYSM BY ARM INCISION (WRVU *) performed by Lida Peter MD at [facility] MAIN OR ??? PRO EXC PAROTD, TOTAL, [...] performed by Odalis Elias MD at [facility] MAIN OR ??? PRO NEGATIVE PRESSURE WOUND THERAPY, LESS THAN OR EQUAL TO 50 SQCM Left 04/19/2018 DRESSING CHANGE (VAC ASSISTED) UP TO 50SQ.CM (WRVU 0.55) performed by Odalis Elias MD [facility] OR ??? PRO REBL VES GRAFT, UP EXTREM Left 04/06/2018 REPAIR BLOOD VESSEL WITH GRAFT OTHER THAN VEIN, UPPER EXTREMITY (WRVU 15.83) performed by Lida Peter MD at [facility] MAIN OR ??? PRO RELIEVE PRESSURE ON NERVE(S) Left 04/06/2018 (MSURG) CARPAL TUNNEL (WRVU 4.82) performed by Silviano Sparks MD at [facility] MAIN OR ??? PRO REPAIR INTERMEDIATE S/A/T/E 2.6-7.5 CM 04/19/2012 REPAIR INTERMEDIATE WOUND, (NO HANDS OR FEET) 2.6 TO 7.5CM, UPPER EXTREMITY performed by SABRINA SANCHEZ at [facility] MAIN OR ? ? PRO REPAIR INTERMEDIATE S/A/T/E > 30.0 CM Left 04/14/2018 REPAIR INTERMEDIATE WOUND, (NO HANDS OR FEET) >30.0CM, UPPER EXTREMITY (WRVU 5) performed by Yimi Easton MD at [facility] MAIN OR ??? PRO REVISE MEDIAN N/CARPAL TUNNEL SURG Left 04/06/2018 MEDIAN NERVE DECOMPRESSION (CARPAL TUNNEL RELEASE) (WRVU 4.97) performed by Lida Peter MD [facility] MAIN OR ? ? PRO SPLIT GRFT TRUNK, ARM, LEG <100SQCM Left 04/26/2018 SPLIT THICK SKIN GRAFT,100 SQ CM OR LESS, ARMS (WRVU 9.9) performed by Silviano Sparks MD at [facility] MAIN OR ? ? PRO SPLIT GRFT, HEAD, FAC, HAND, FEET <100SQCM N/A 02/20/2016 SPLIT THICKNESS SKIN SPLIT GRAFT,100SQ CM OR LESS, NECK performed by Miguel Angel Moreno MD at [facility] MAIN OR ??? PRO SPLIT GRFT, TRUNK, ARM, LEG EA 100SQCM N/A 04/26/2018 EA.ADDITIONAL 100SQ.CM STSG (WRVU 1.72) performed by Silviano Sparks MD at [facility] MAIN OR ??? PRO UPPER GI ENDOSCOPY, BIOPSY N/A 05/13/2017 EGD WITH BIOPSY (WRVU 2.49) performed by Aditya Barrera MD at [facility] ENDOSCOPY ??? PRO VASCULAR SURGERY PROCEDURE UNLIST Left 11/20/2015 LIGATION\REPAIR AV FISTULA performed by Camilo Ireland MD at [facility] MAIN OR ??? PRO VASCULAR SURGERY PROCEDURE UNLIST Left 11/20/2015 EXCISION VEIN FROM HAND performed by Camilo Ireland MD at [facility] MAIN OR ??? US RENAL TRANSPLANT BIOPSY 12/31/2010 ??? US RENAL TRANSPLANT RIGHT Right 06/04/2018 US Renal Transplant Right 06/04/2018 [facility] RAD ULTRASOUND Social History Tobacco Use ??? [...] mL premix bags) infusion 2 g, Intravenous, COMMISSARY ASSISTANT TO O.R., 1 dose, On Mariza 04/03/21 [...] EDT documented in this encounter Care Teams Ampoule Filler And Sealer Relationship Specialty Start Date End Date Carroll Fuentes DO [address] [place] [address] PCP - General 09/23/11 10/20/22 documented as of this encounter
--- OUTSIDE RECORDS SUMMARY | 2024-05-23 13:15 | XMS_ITS | Encounter Summary ---
[place] [address] Care Team Providers Care Sheeter Helper Name Role Phone AlfredoCarroll allison Primary Care Provider Encounter Details Date Type Department Care Team (Late st Contact Info) Description 02/26/2021 Orders [place] [address] Krysta Treviño RN ESRD (end stage renal [...] RN - 02/26/2021 9:19 AM EDT This automobile and property underwriter phoned [facility], ([phone]) where the patient lives and spoke with [facility], who clarified that this patient is not on coumadin or plavix, and is on aspirin 81 mg daily. documented in this encounter Plan of Treatment Not on file documented as of this encounter Results * Potassium (04/03/2021 6:55 AM EDT) Potassium 5.0 3.5 - 5.0 mmol/L [facility] Lab Odalis Elias MD CHEMISTRY ORDER KELLY [facility] [place] [address] documented in this encounter Visit Diagnoses Diagnosis ESRD (end stage renal disease) End stage renal disease Pre-op testing Preoperative examination, unspecified documented in this encounter Care Teams Sheeter Helper Relationship Specialty Start Date End Date Carroll Fuentes DO [address] [place] [address] PCP - General 09/23/11 10/20/22 documented as of this encounter
--- OUTSIDE RECORDS SUMMARY | 2024-05-23 13:15 | XMS_ITS | Encounter Summary ---
Author Organization [facility] [place] [address] Care Team Providers Care Amusement Machine Mechanic Name Role Phone Carroll Fuentes DO Primary Care Provider Encounter Details Date Type Department Care Team (Late st Contact Info) Description 05/13/2021 Telephone [place] [id number] Sharmin Cloud Social History Tobacco Use Types [...] I called and spoke with Ivette at [facility] - we have scheduled Adama for his procedure to be with Dr. Anderson on 05/22/21. documented in this encounter Plan of Treatment Not on file documented as of this encounter Visit Diagnoses Not on filedocumented in this encounter Care Teams Amusement Machine Mechanic Relationship Specialty Start Date End Date Carroll Fuentes DO [address] [place] [address] PCP - General 09/23/11 10/20/22 documented as of this encounter
--- OUTSIDE RECORDS SUMMARY | 2024-05-23 13:15 | XMS_ITS | Encounter Summary ---
Author Organization [facility] Address [facility] [place] [address] Care Team Providers Care Sheet Metal Layout Mechanic Name Role Phone Carroll Fuentes DO Primary Care Provider Encounter Details Date Type Department Care Team (Late st Contact Info) Description 04/15/2021 Orders Only Neph[place] [address] Trever Boyd MD [facility] [place] [address] ESRD (end stage renal disease) Social History [...] disease documented in this encounter Care Teams Sheet Metal Layout Mechanic Relationship Specialty Start Date End Date Carroll Fuentes DO [address] [place] [address] PCP - General 09/23/11 10/20/22 documented as of this encounter
--- OUTSIDE RECORDS SUMMARY | 2024-05-23 13:15 | XMS_ITS | Encounter Summary ---
[place] [address] Care Team Providers Care High [employer] Academic Coach Name Role Phone AlfredoCarroll geiger Primary Care Provider [phone] Reason for Referral * Diagnostic Test (Routine) - Closed Specialty Diagnoses / Procedures Referred By Shashi ko Referred To Contact Radiology Diagnoses ESRD (end stage renal disease) Procedures IR Line or Tube Removal in Recovery Room IR Dialysis Access - Tunneled Line Luna Solorio APRN [facility] [place] [address] [facility] [place] [address] Referral ID Status Reason Start Date Expiration Date V isits Requested Visits Authorized [id number] Closed Specialty Service Requested 07/25/2021 01/22/2023 1 1 Encounter Details Date Type Department Care Team (Late st Contact Info) Description 07/25/2021 Orders Only [place] [address] Luna Solorio APRN [facility] [place] [address] ESRD (end stage renal disease) [...] venous catheter explant Indication: ESRD, discontinue durable usp central venous access Pre-procedure: Informed consent for [...] 07/31/2021 Salvador Moise MD Luna John Solorio PERIPHERAL EQUIPMENT OPERATOR IMG IR ORDERABLES documented in this encounter Visit Diagnoses Diagnosis ESRD (end stage renal disease) End stage renal disease ESRD (end stage renal disease) End stage renal disease documented in this encounter Care Teams High [employer] Academic Coach Relationship Specialty Start Date End Date Carroll Fuentes DO [address] [place] [address] PCP - General 09/23/11 10/20/22 documented as of this encounter
--- OUTSIDE RECORDS SUMMARY | 2024-05-23 13:15 | XMS_ITS | Encounter Summary ---
[facility] [place] [address] Care Team Providers Care Pediatric Associate Name Role Phone AlfredoCarroll allison Primary Care Provider [phone] Encounter Details Date Type Department Care Team (Late st Contact Info) Description 06/06/2021 12:30 PM EST Tech [place] [id number] Nicolás Marte ESRD (end stage renal disease) [...] Text Report Department: Vascular Surgery Lab Patient: [id number] (CHRISTY AMBROSE) CPT: 67449 ICD10: N18.6;Z99.2 Referring Physician: CRYSTAL JUAREZ ?? [...] disease documented in this encounter Care Teams Pediatric Associate Relationship Specialty Start Date End Date Carroll Fuentes DO [address] [place] [address] PCP - General 09/23/11 10/20/22 documented as of this encounter
--- OUTSIDE RECORDS SUMMARY | 2024-05-23 13:15 | XMS_ITS | Encounter Summary ---
[facility] [place] [address] Care Team Providers Care Fire Lookout Name Role Phone Alfredo, Carroll MIX Primary Care Provider [phone] Encounter Details Date Type Department Care Team (Late st Contact Info) Description 03/27/2021 Telephone [place] [address] Sharmin Cloud Social History Tobacco Use Types [...] PM EDT I spoke with Anabella at [facility] - we have rescheduled Mr. Ram for his AVF Surgery with for 04/03/21. documented in this encounter Plan of Treatment Not on file documented as of this encounter Visit Diagnoses Not on filedocumented in this encounter Care Teams Fire Lookout Relationship Specialty Start Date End Date Alfredo, Carroll, DO [address] [place] [address] PCP - General 09/23/11 10/20/22 documented as of this encounter
--- OUTSIDE RECORDS SUMMARY | 2024-05-23 13:15 | XMS_ITS | Encounter Summary ---
Author Organization [facility] [place] [address] Care Team Providers Care Global Chief Experience Officer Name Role Phone AlfredoCarroll geiger Primary Care Provider [phone] Reason for Visit * Auth/Cert Specialty Diagnoses [...] Expiration Date Visits Re quested Visits Authorized [id number] 1 1 Encounter Details Date Type Department Care Team (Late st Contact Info) Description 05/22/2021 12:11 PM EST Anesthesia Event [place] [address] Padmini Murdock MD [facility] [place] [address] Karin Keating CRNA [facility] [place] [address] Anesthesia Record Procedure Summary Procedure Name Responsible Anesthesiologist Anesthesia Start Time Anesthesia Stop Time AV FISTULA CREATION, DIRECT HEMODIALYSIS, ANY SITE, EG MADYSON FISTULA LOWER EXTREMITY [facility] (Right: Leg) Padmini Murdock MD [...] dorsal arch vein (top of hand), left; osqg-vyx-gvpdlt catheter system; Anatomical Landmarks; 22 gauge; LDA not present upon assessment; 05/22/21; 1241 03/20/21 0707 by Carlos Alberto Butler RN 05/22/21 1241 by Karin Keating CRNA (RETIRED) Percutaneous Central Line - Double Lumen 03/20/21; 0814; internal jugular vein, right; dialysis/apheresis catheter; other (see comments) (14.5Fr); Dr Harmon / Jag Goodman PA; 14.5Fr x 28cm HemoFlow Ref# [id number] Lot# [id number] expires 08/17/2023; 11/05/21 (LDA not present on assessment) 03/20/21 0814 by Nara Velazco RN 11/05/21 0000 by Wilfredo Cuenca RN (RETIRED) Peripheral IV Line - Single Lumen 05/22/21; 1211; median cubital vein (antecubital fossa), right; kdaj-nrs-lcfjnp catheter system; Anatomical Landmarks; 20 gauge; Padmini [...] 1228; median cubital vein (antecubital fossa), left; ylnq-kwd-nupime catheter system; Ultrasound Guidance; Yes - US [...] Procedure Summary Date: 05/22/21 Room / Location: [facility] OR [address] [place] [address] MAIN OR Anesthesia Start: 1211 Anesthesia Stop: [...] All Anesthesia Providers: Anesthesiologist: Padmini Murdock MD ADVERTISING PHOTOGRAPHER: Karin Keating CRNA Vitals Value Taken Time BP 130/87 05/22/21 1530 Temp Pulse 64 05/22/21 1539 Resp 20 05/22/21 1539 SpO2 95 % 05/22/21 1539 Pain Level Vitals shown include unvalidated device data. Patient Location: PACU/[facility] Level of Consciousness: Awake and Alert [...] GFR 15-29 ml/min ??? 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 longterm current use of immunosuppressive drug ??? H/O [...] AV Fistula Evaluations 11/30/2019 Sabrina Velez MD [facility] RAD ??? IR DIALYSIS ACCESS - AV FISTULA EVALUATIONS 01/07/2021 IR Dialysis Access - AV Fistula Evaluations 01/07/2021 Sabrina Velez MD [facility] RAD ??? IR DIALYSIS ACCESS - TUNNELED LINE 07/30/2018 IR Dialysis Access - Tunneled Line 07/30/2018 Walt Lin MD [facility] RAD ??? IR DIALYSIS ACCESS - TUNNELED LINE 08/30/2018 IR Dialysis Access - Tunneled Line 08/30/2018 Erwin Simon APRN [facility] RAD ??? IR DIALYSIS ACCESS - TUNNELED LINE 12/27/2020 IR Dialysis Access - Tunneled Line 12/27/2020 Kanu Apple MD [facility] RAD ??? IR DIALYSIS ACCESS - TUNNELED LINE 01/23/2021 IR Dialysis Access - Tunneled Line 01/23/2021 Kanu Apple MD [facility] RAD ??? IR DIALYSIS ACCESS - TUNNELED LINE 03/20/2021 IR Dialysis Access - Tunneled Line 03/20/2021 Tab Harmon MD [facility] RAD ??? KIDNEY TRANSPLANT KIDNEY TRANSPLANT / RECIPIENT/LT Procedure Date: 11/26/2002 ??? PRO CREAT AV FISTULA, NON-AUTOGENOUS GRAFT Right 12/13/2018 PLACEMENT, AV HEMODIALYSIS GRAFT, SYNTHETIC GRAFT, UPPER EXTREMITY (WRVU 12.03) performed by Mary Garay MD at [facility] OR ??? PRO CREAT AV FISTULA, NON-AUTOGENOUS GRAFT Left 04/03/2021 PLACEMENT, AV HEMODIALYSIS GRAFT, SYNTHETIC GRAFT, UPPER EXTREMITY (WRVU 12.03) performed by Odalis Elias MD at [facility] OR ? ? PRO DEBRIDEMENT SUBCUTANEOUS TISSUE 20 SQCM/< Left 02/20/2016 DEBRIDEMENT SKIN AND SUBCU, HEAD/NECK performed by Miguel Angel Moreno MD at [facility] OR ??? PRO DECOMPRESS FOREARM, BRACH ART EXPLOR Left 04/06/2018 FASCIOTOMY, FOREARM, WITH BRACHIAL ARTERY EXPLORATION (WRVU 8.41) performed by Lida Peter MDat [facility] OR ??? PRO DIRECT REPAIR RUPTURED ANEURYSM, AXILLO-BRACHIAL ARM INCIS Left 04/06/2018 @REPAIR, RUPTURED AXILLARY OR BRACHIAL ARTERY ANEURYSM BY ARM INCISION (WRVU *) performed by Lida Peter MD at [facility] OR ??? PRO EXC PAROTD, TOTAL, UNILAT RAD NECK Left 02/05/2016 @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, TOTAL, WITH UNILATERAL RADICAL NECK DISSECTION performed by Miguel Angel Moreno MD at [facility] OR ??? PRO EXC SKIN MALIG 3.1-4CM FACE, FACIAL Left 02/05/2016 EXC MALIGNANT LESION, 3.1 TO 4.0CM, FACE performed by Miguel Angel Moreno MD at [facility] OR ? ? PRO EXC SKIN MALIG >4CM TRUNK, ARM, LEG 04/19/2012 EXC MALIGNANT LESION, MICHAEL > 4.0CM, TRUNK performed by SABRINA SANCHEZ at [facility] OR ??? PRO LAP, RADICAL NEPHRECTOMY Left 05/31/2017 @LAPAROSCOPY, RADICAL NEPHRECTOMY (WRVU 25.06) performed by Jax Mills MD at [facility] MAIN OR ??? PRO LIGATN ANGIOACCESS AV FISTULA Left 04/19/2018 LIGATION OR BANDING OF HEMODIALYSIS FISTULA OR GRAFT UPPER EXTREMITY (WRVU 6.25) performed by Odalis Elias MD at [facility] MAIN OR ??? PRO NEGATIVE PRESSURE WOUND THERAPY, LESS THAN OR EQUAL TO 50 SQCM Left 04/19/2018 DRESSING CHANGE (VAC ASSISTED) UP TO 50SQ.CM (WRVU 0.55) performed by Odalis Elias MD [facility] OR ??? PRO REBL VES GRAFT, UP EXTREM Left 04/06/2018 REPAIR BLOOD VESSEL WITH GRAFT OTHER THAN VEIN, UPPER EXTREMITY (WRVU 15.83) performed by Lida Peter MD at [facility] MAIN OR ??? PRO RELIEVE PRESSURE ON NERVE(S) Left 04/06/2018 (MSURG) CARPAL TUNNEL (WRVU 4.82) performed by Silviano Sparks MD at [facility] MAIN OR ??? PRO REPAIR INTERMEDIATE S/A/T/E 2.6-7.5 CM 04/19/2012 REPAIR INTERMEDIATE WOUND, (NO HANDS OR FEET) 2.6 TO 7.5CM, UPPER EXTREMITY performed by SABRINA SANCHEZ at [facility] OR ? ? PRO REPAIR INTERMEDIATE S/A/T/E > 30.0 CM Left 04/14/2018 REPAIR INTERMEDIATE WOUND, (NO HANDS OR FEET) >30.0CM, UPPER EXTREMITY (WRVU 5) performed by Yimi Easton MD at [facility] MAIN OR ??? PRO REVISE MEDIAN N/CARPAL TUNNEL SURG Left 04/06/2018 MEDIAN NERVE DECOMPRESSION (CARPAL TUNNEL RELEASE) (WRVU 4.97) performed by Lida Peter MD [facility] OR ? ? PRO SPLIT GRFT TRUNK, ARM, LEG <100SQCM Left 04/26/2018 SPLIT THICK SKIN GRAFT,100 SQ CM OR LESS, ARMS (WRVU 9.9) performed by Silviano Sparks MD at [facility] MAIN OR ? ? PRO SPLIT GRFT, HEAD, FAC, HAND, FEET <100SQCM N/A 02/20/2016 SPLIT THICKNESS SKIN SPLIT GRAFT,100SQ CM OR LESS, NECK performed by Miguel Angel Moreno MD at [facility] MAIN OR ??? PRO SPLIT GRFT, TRUNK, ARM, LEG EA 100SQCM N/A 04/26/2018 EA.ADDITIONAL 100SQ.CM STSG (WRVU 1.72) performed by Silviano Sparks MD at [facility] MAIN OR ??? PRO UPPER GI ENDOSCOPY, BIOPSY N/A 05/13/2017 EGD WITH BIOPSY (WRVU 2.49) performed by Aditya Barrera MD at [facility] ENDOSCOPY ??? PRO VASCULAR SURGERY PROCEDURE UNLIST Left 11/20/2015 LIGATION\REPAIR AV FISTULA performed by Camilo Ireland MD at [facility] MAIN OR ??? PRO VASCULAR SURGERY PROCEDURE UNLIST Left 11/20/2015 EXCISION VEIN FROM HAND performed by Camilo Ireland MD at [facility] MAIN OR ??? US RENAL TRANSPLANT BIOPSY 12/31/2010 ??? US RENAL TRANSPLANT RIGHT Right 06/04/2018 US Renal Transplant Right 06/04/2018 [facility] RAD ULTRASOUND Social History Tobacco Use ??? [...] discussed with patient who. Plan discussed with ADVERTISING PHOTOGRAPHER. Anesthesia Screening documented in this encounter Plan [...] 5% 100 mL infusion 2 g, Intravenous, ELECTRO MECHANICAL ENGINEER TO O.R., 1 dose, On Mariza 05/22/21 [...] EST documented in this encounter Care Teams Global Chief Experience Officer Relationship Specialty Start Date End Date Carroll Fuentes DO [address] [place] [address] PCP - General 09/23/11 10/20/22 documented as of this encounter
--- OUTSIDE RECORDS SUMMARY | 2024-05-23 13:15 | XMS_ITS | Encounter Summary ---
Author Organization [facility] Address [facility] [address] Care Team Providers Care Singing Telegram Performer Name Role Phone AlfredoCarroll geiger Primary Care Provider [phone] Reason for Visit * Auth/Cert Specialty Diagnoses / Procedures Referred By Shashi ko Referred To Contact Diagnoses ESRD (end stage renal disease) ESRD Procedures PRO CREAT AV FISTULA, NON-AUTOGENOUS GRAFT PLACEMENT, AV HEMODIALYSIS GRAFT, SYNTHETIC GRAFT, UPPER EXTREMITY (WRVU 12.03) Referral ID Status Reason Start Date Expiration Date Visits Re quested Visits Authorized [id number] 1 1 Encounter Details Date Type Department Care Team (Late st Contact Info) Description 04/03/2021 7:30 AM EDT - 04/03/2021 11:20 AM EDT Surgery [place] [id number] Odalis Tong MD [facility] [place] [address] PLACEMENT, AV HEMODIALYSIS GRAFT, SYNTHETIC GRAFT, UPPER [...] GFR 15-29 ml/min ??? 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 buttermaker continuous churn current use of immunosuppressive drug ??? H/O [...] function and is medically cleared back to [facility] rehab, where pt resides. He will [...] 10:00 AM Nicolás Marte Vascular Lab at [facility] Arrive at: Gas Main Fitter Helper Area 05/02/2021 11:45 AM Odalis Tong MD [place] [facility] [place] at: Gas Main Fitter Helper Area 3V [phone] Future Orders Complete By Expires AVF/Established Access Evaluation [VAS61 Custom] 05/04/2021 04/04/2022 Process Instructions: There is no in-house vascular ammunition assembly ii laborer available on weeknights (5pm-8am), weekends, or holidays. IF THIS IS A REQUEST FOR AN EMERGENT STUDY DURING THOSE HOURS, please have the senior provider responsible for the patient page the Vascular Surgery Fellow/Senior Resident clearing distribution clerk to discuss options. Scheduling Instructions: Questions: Laterality: Left Which extremity?: Upper Indication for study/signs & symptoms: LUE AV graft placement Question to be answered: patency, flow Pref[place] [facility] [place] Anticoagulation & Antiplatelet: Anticoagulation: None [...] For any problems or questions please call [phone] YEIMY Fallon, group sales coordinator Nurse Clinician For issues on weeknights after 5pm and weekends please call [phone] and ask for the Vascular Fellow clearing distribution clerk. Nidla Minaya APRN Department of Vascular Surgery documented [...] For any problems or questions please call [phone] YEIMY Fallon, group sales coordinator Nurse Clinician For issues on weeknights after 5pm and weekends please call [phone] and ask for the Vascular Fellow clearing distribution clerk. documented in this encounter Medications at Time [...] Kohler RN - 04/04/2021 3:24 PM EDT [facility] Short Stay Unit Discharge Note All relevant [...] Villareal RN - 04/04/2021 7:34 AM EDT [facility] Short Stay Unit Shift Note The patient [...] AV Fistula Evaluations 11/30/2019 Sabrina Velez MD [facility] INTERVENTIONL RAD ??? IR DIALYSIS ACCESS - AV FISTULA EVALUATIONS 01/07/2021 IR Dialysis Access - AV Fistula Evaluations 01/07/2021 Sabrina Velez MD [facility] INTERVENTIONL RAD ??? IR DIALYSIS ACCESS - TUNNELED LINE 07/30/2018 IR Dialysis Access - Tunneled Line 07/30/2018 Walt Lin MD [facility] INTERVENTIONL RAD ??? IR DIALYSIS ACCESS - TUNNELED LINE 08/30/2018 IR Dialysis Access - Tunneled Line 08/30/2018 Erwin Simon, [place] [facility] INTERVENTIONL RAD ??? IR DIALYSIS ACCESS - TUNNELED LINE 12/27/2020 IR Dialysis Access - Tunneled Line 12/27/2020 Kanu Apple MD [facility] INTERVENTIONL RAD ??? IR DIALYSIS ACCESS - TUNNELED LINE 01/23/2021 IR Dialysis Access - Tunneled Line 01/23/2021 Kanu Apple MD [facility] INTERVENTIONL RAD ??? IR DIALYSIS ACCESS - TUNNELED LINE 03/20/2021 IR Dialysis Access - Tunneled Line 03/20/2021 Tab Harmon MD [facility] INTERVENTIONL RAD ??? KIDNEY TRANSPLANT KIDNEY TRANSPLANT / RECIPIENT/LT Procedure Date: 11/26/2002 ??? PRO CREAT AV FISTULA, NON-AUTOGENOUS GRAFT Right 12/13/2018 PLACEMENT, AV HEMODIALYSIS GRAFT, SYNTHETIC GRAFT, UPPER EXTREMITY (WRVU 12.03) performed by Mary Garay MD at [facility] OR ? ? PRO DEBRIDEMENT SUBCUTANEOUS TISSUE 20 SQCM/< Left 02/20/2016 DEBRIDEMENT SKIN AND SUBCU, HEAD/NECK performed by Miguel Angel Moreno MD at [facility] OR ??? PRO DECOMPRESS FOREARM, BRACH ART EXPLOR Left 04/06/2018 FASCIOTOMY, FOREARM, WITH BRACHIAL ARTERY EXPLORATION (WRVU 8.41) performed by Lida Peter MDat [facility] OR ??? PRO DIRECT REPAIR RUPTURED ANEURYSM, AXILLO-BRACHIAL ARM INCIS Left 04/06/2018 @REPAIR, RUPTURED AXILLARY OR BRACHIAL ARTERY ANEURYSM BY ARM INCISION (WRVU *) performed by Lida Peter MD at [facility] OR ??? PRO EXC PAROTD, TOTAL, UNILAT RAD NECK Left 02/05/2016 @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, TOTAL, WITH UNILATERAL RADICAL NECK DISSECTION performed by Miguel Angel Moreno MD at [facility] OR ??? PRO EXC SKIN MALIG 3.1-4CM FACE, FACIAL Left 02/05/2016 EXC MALIGNANT LESION, 3.1 TO 4.0CM, FACE performed by Miguel Angel Moreno MD at [facility] MAIN OR ? ? PRO EXC SKIN MALIG >4CM TRUNK, ARM, LEG 04/19/2012 EXC MALIGNANT LESION, MICHAEL > 4.0CM, TRUNK performed by SABRINA SANCHEZ at [facility] OR ??? PRO LAP, RADICAL NEPHRECTOMY Left 05/31/2017 @LAPAROSCOPY, RADICAL NEPHRECTOMY (WRVU 25.06) performed by Jax Mills MD at [facility] MAIN OR ??? PRO LIGATN ANGIOACCESS AV FISTULA Left 04/19/2018 LIGATION OR BANDING OF HEMODIALYSIS FISTULA OR GRAFT UPPER EXTREMITY (WRVU 6.25) performed by Odalis Tong MD at [facility] MAIN OR ??? PRO NEGATIVE PRESSURE WOUND THERAPY, LESS THAN OR EQUAL TO 50 SQCM Left 04/19/2018 DRESSING CHANGE (VAC ASSISTED) UP TO 50SQ.CM (WRVU 0.55) performed by Odalis Tong MD [facility] OR ??? PRO REBL VES GRAFT, UP EXTREM Left 04/06/2018 REPAIR BLOOD VESSEL WITH GRAFT OTHER THAN VEIN, UPPER EXTREMITY (WRVU 15.83) performed by Lida Peter MD at [facility] MAIN OR ??? PRO RELIEVE PRESSURE ON NERVE(S) Left 04/06/2018 (MSURG) CARPAL TUNNEL (WRVU 4.82) performed by Silviano Sparks MD at [facility] MAIN OR ??? PRO REPAIR INTERMEDIATE S/A/T/E 2.6-7.5 CM 04/19/2012 REPAIR INTERMEDIATE WOUND, (NO HANDS OR FEET) 2.6 TO 7.5CM, UPPER EXTREMITY performed by SABRINA SANCHEZ at [facility] OR ? ? PRO REPAIR INTERMEDIATE S/A/T/E > 30.0 CM Left 04/14/2018 REPAIR INTERMEDIATE WOUND, (NO HANDS OR FEET) >30.0CM, UPPER EXTREMITY (WRVU 5) performed by Yimi Easton MD at [facility] OR ??? PRO REVISE MEDIAN N/CARPAL TUNNEL SURG Left 04/06/2018 MEDIAN NERVE DECOMPRESSION (CARPAL TUNNEL RELEASE) (WRVU 4.97) performed by Lida Peter MD [facility] OR ? ? PRO SPLIT GRFT TRUNK, ARM, LEG <100SQCM Left 04/26/2018 SPLIT THICK SKIN GRAFT,100 SQ CM OR LESS, ARMS (WRVU 9.9) performed by Silviano Sparks MD at [facility] MAIN OR ? ? PRO SPLIT GRFT, HEAD, FAC, HAND, FEET <100SQCM N/A 02/20/2016 SPLIT THICKNESS SKIN SPLIT GRAFT,100SQ CM OR LESS, NECK performed by Miguel Angel Moreno MD at [facility] MAIN OR ??? PRO SPLIT GRFT, TRUNK, ARM, LEG EA 100SQCM N/A 04/26/2018 EA.ADDITIONAL 100SQ.CM STSG (WRVU 1.72) performed by Silviano Sparks MD at [facility] MAIN OR ??? PRO UPPER GI ENDOSCOPY, BIOPSY N/A 05/13/2017 EGD WITH BIOPSY (WRVU 2.49) performed by Aditya Barrera MD at [facility] ENDOSCOPY ??? PRO VASCULAR SURGERY PROCEDURE UNLIST Left 11/20/2015 LIGATION\REPAIR AV FISTULA performed by Camilo Ireland MD at [facility] MAIN OR ??? PRO VASCULAR SURGERY PROCEDURE UNLIST Left 11/20/2015 EXCISION VEIN FROM HAND performed by Camilo Ireland MD at [facility] MAIN OR ??? US RENAL TRANSPLANT BIOPSY 12/31/2010 ??? US RENAL TRANSPLANT RIGHT Right 06/04/2018 US Renal Transplant Right 06/04/2018 [facility] RAD ULTRASOUND Family Hx: Negative for Thrombosis, [...] to proceed. Angelina Marrero Vascular Surgery Pager #[phone] documented in this encounter Miscellaneous Notes * Consult Note - Crystal Mcdermott MD - 04/04/2021 11:32 AM EDT NEPHROLOGY CONSULT NOTE Reason for consult: ESRD/HD HPI: [id number] man s/p creation of LUE AVG. Patient seen and examined on dialysis. Clinical and laboratory data reviewed. Stable treatment. No issues with dialysis or access. 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 They could not accommodate him [...] AV Fistula Evaluations 11/30/2019 Sabrina Velez MD [facility] INTERVENTIONL RAD ??? IR DIALYSIS ACCESS - AV FISTULA EVALUATIONS 01/07/2021 IR Dialysis Access - AV Fistula Evaluations 01/07/2021 Sabrina Velez MD [facility] INTERVENTIONL RAD ??? IR DIALYSIS ACCESS - TUNNELED LINE 07/30/2018 IR Dialysis Access - Tunneled Line 07/30/2018 Walt Lin MD [facility] INTERVENTIONL RAD ??? IR DIALYSIS ACCESS - TUNNELED LINE 08/30/2018 IR Dialysis Access - Tunneled Line 08/30/2018 Erwin Simon APRN [facility] INTERVENTIONL RAD ??? IR DIALYSIS ACCESS - TUNNELED LINE 12/27/2020 IR Dialysis Access - Tunneled Line 12/27/2020 Kanu Apple MD [facility] INTERVENTIONL RAD ??? IR DIALYSIS ACCESS - TUNNELED LINE 01/23/2021 IR Dialysis Access - Tunneled Line 01/23/2021 Kanu Apple MD [facility] INTERVENTIONL RAD ??? IR DIALYSIS ACCESS - TUNNELED LINE 03/20/2021 IR Dialysis Access - Tunneled Line 03/20/2021 Tab Harmon MD [facility] INTERVENTIONL RAD ??? KIDNEY TRANSPLANT KIDNEY TRANSPLANT / RECIPIENT/LT Procedure Date: 11/26/2002 ??? PRO CREAT AV FISTULA, NON-AUTOGENOUS GRAFT Right 12/13/2018 PLACEMENT, AV HEMODIALYSIS GRAFT, SYNTHETIC GRAFT, UPPER EXTREMITY (WRVU 12.03) performed by Mary Garay MD at [facility] OR ??? PRO CREAT AV FISTULA, NON-AUTOGENOUS GRAFT Left 04/03/2021 PLACEMENT, AV HEMODIALYSIS GRAFT, SYNTHETIC GRAFT, UPPER EXTREMITY (WRVU 12.03) performed by Odalis Tong MD at [facility] MAIN OR ? ? PRO DEBRIDEMENT SUBCUTANEOUS TISSUE 20 SQCM/< Left 02/20/2016 DEBRIDEMENT SKIN AND SUBCU, HEAD/NECK performed by Miguel Angel Moreno MD at [facility] OR ??? PRO DECOMPRESS FOREARM, BRACH ART EXPLOR Left 04/06/2018 FASCIOTOMY, FOREARM, WITH BRACHIAL ARTERY EXPLORATION (WRVU 8.41) performed by Lida Peter MDat [facility] OR ??? PRO DIRECT REPAIR RUPTURED ANEURYSM, AXILLO-BRACHIAL ARM INCIS Left 04/06/2018 @REPAIR, RUPTURED AXILLARY OR BRACHIAL ARTERY ANEURYSM BY ARM INCISION (WRVU *) performed by Lida Peter MD at [facility] OR ??? PRO EXC PAROTD, TOTAL, UNILAT RAD NECK Left 02/05/2016 @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, TOTAL, WITH UNILATERAL RADICAL NECK DISSECTION performed by Miguel Angel Moreno MD at [facility] OR ??? PRO EXC SKIN MALIG 3.1-4CM FACE, FACIAL Left 02/05/2016 EXC MALIGNANT LESION, 3.1 TO 4.0CM, FACE performed by Miguel Angel Moreno MD at [facility] OR ? ? PRO EXC SKIN MALIG >4CM TRUNK, ARM, LEG 04/19/2012 EXC MALIGNANT LESION, MICHAEL > 4.0CM, TRUNK performed by SABRINA SANCHEZ at [facility] OR ??? PRO LAP, RADICAL NEPHRECTOMY Left 05/31/2017 @LAPAROSCOPY, RADICAL NEPHRECTOMY (WRVU 25.06) performed by Jax Mills MD at [facility] OR ??? PRO LIGATN ANGIOACCESS AV FISTULA Left 04/19/2018 LIGATION OR BANDING OF HEMODIALYSIS FISTULA OR GRAFT UPPER EXTREMITY (WRVU 6.25) performed by Odalis Tong MD at [facility] MAIN OR ??? PRO NEGATIVE PRESSURE WOUND THERAPY, LESS THAN OR EQUAL TO 50 SQCM Left 04/19/2018 DRESSING CHANGE (VAC ASSISTED) UP TO 50SQ.CM (WRVU 0.55) performed by Odalis Tong MD [facility] MAIN OR ??? PRO REBL VES GRAFT, UP EXTREM Left 04/06/2018 REPAIR BLOOD VESSEL WITH GRAFT OTHER THAN VEIN, UPPER EXTREMITY (WRVU 15.83) performed by Lida Peter MD at [facility] MAIN OR ??? PRO RELIEVE PRESSURE ON NERVE(S) Left 04/06/2018 (MSURG) CARPAL TUNNEL (WRVU 4.82) performed by Silviano Sparks MD at [facility] MAIN OR ??? PRO REPAIR INTERMEDIATE S/A/T/E 2.6-7.5 CM 04/19/2012 REPAIR INTERMEDIATE WOUND, (NO HANDS OR FEET) 2.6 TO 7.5CM, UPPER EXTREMITY performed by SABRINA SANCHEZ at [facility] MAIN OR ? ? PRO REPAIR INTERMEDIATE S/A/T/E > 30.0 CM Left 04/14/2018 REPAIR INTERMEDIATE WOUND, (NO HANDS OR FEET) >30.0CM, UPPER EXTREMITY (WRVU 5) performed by Yimi Easton MD at [facility] MAIN OR ??? PRO REVISE MEDIAN N/CARPAL TUNNEL SURG Left 04/06/2018 MEDIAN NERVE DECOMPRESSION (CARPAL TUNNEL RELEASE) (WRVU 4.97) performed by Lida Peter MD [facility] MAIN OR ? ? PRO SPLIT GRFT TRUNK, ARM, LEG <100SQCM Left 04/26/2018 SPLIT THICK SKIN GRAFT,100 SQ CM OR LESS, ARMS (WRVU 9.9) performed by Silviano Sparks MD at [facility] MAIN OR ? ? PRO SPLIT GRFT, HEAD, FAC, HAND, FEET <100SQCM N/A 02/20/2016 SPLIT THICKNESS SKIN SPLIT GRAFT,100SQ CM OR LESS, NECK performed by Miguel Angel Moreno MD at [facility] MAIN OR ??? PRO SPLIT GRFT, TRUNK, ARM, LEG EA 100SQCM N/A 04/26/2018 EA.ADDITIONAL 100SQ.CM STSG (WRVU 1.72) performed by Silviano Sparks MD at [facility] MAIN OR ??? PRO UPPER GI ENDOSCOPY, BIOPSY N/A 05/13/2017 EGD WITH BIOPSY (WRVU 2.49) performed by Aditya Barrera MD at [facility] ENDOSCOPY ??? PRO VASCULAR SURGERY PROCEDURE UNLIST Left 11/20/2015 LIGATION\REPAIR AV FISTULA performed by Camilo Ireland MD at [facility] MAIN OR ??? PRO VASCULAR SURGERY PROCEDURE UNLIST Left 11/20/2015 EXCISION VEIN FROM HAND performed by Camilo Ireland MD at [facility] MAIN OR ??? US RENAL TRANSPLANT BIOPSY 12/31/2010 ??? US RENAL TRANSPLANT RIGHT Right 06/04/2018 US Renal Transplant Right 06/04/2018 [facility] RAD ULTRASOUND Current Facility-Administered Medications Medication Dose [...] Not on file Occupational History ??? 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 Smoking status: Former Smoker [...] after dialysis. Crystal Mcdermott MD Nephrology Pager: [phone] * Op Note - Tristin Marrero MD - 04/03/2021 2:16 PM EDT [facility] [place] Patient Name: Adama Ram : [id number] MR#: [id number] Case Date: 04/03/2021 Surgeon: Surgeon(s) and Role: [...] itsbranches were controlled with vessel loops. A united keetoowah blade scalpel was used to create a [...] the graft was cut to size. A united keetoowah blade scalpel was used to create a [...] Implant Name Type Inv. Item Serial No. Mobile Application Engineer Lot No. LRB No. Used Action GRAFT VASCULAR [id number] STRAIGHT HEPARIN COATED STANDARD ([id number]) - [id number] IMPLANTS GRAFT VASCULAR [id number] STRAIGHT HEPARIN COATED STANDARD ([id number]) [id number] [employer] ANUJ GARCIA AN Left 1 Implanted Associated attestation - Odalis Tong MD - 04/04/2021 7:45 AM EDT Attestation: Case Date: 04/03/2021 I was present and scrubbed for the entire procedure. ODALIS TONG MD 04/04/2021 * Brief Op Note - Tristin Marrero MD - 04/03/2021 11:57 AM EDT Brief Operative Note Patient Name: Adama Ram : [id number] MR#: [id number] Case Date: 04/03/2021 Surgeon: Surgeon(s) and Role: [...] Implant Name Type Inv. Item Serial No. Mobile Application Engineer Lot No. LRB No. Used Action GRAFT VASCULAR [id number] STRAIGHT HEPARIN COATED STANDARD ([id number]) - [id number] IMPLANTS GRAFT VASCULAR [id number] STRAIGHT HEPARIN COATED STANDARD ([id number]) [id number] [facility] AN Left 1 Implanted documented in this encounter Plan of Treatment Not on file documented as of this encounter Procedures Procedure Name Priority Date/Time Associated Diagnosis Comments HC HEPATITIS B SURFACE AG Routine 04/03/2021 5:38 PM EDT RAPID COVID-19 PCR ([facility]/APD/[facility]) Routine 04/03/2021 9:39 AM EDT Creat Av Fistula, Non-Autogenous Graft (39949) 04/03/2021 7:55 AM EDT ESRD HC VENIPUNCTURE STAT 04/03/2021 6:55 AM EDT ESRD (end stage renal disease) Pre-op testing PLACEMENT, AV HEMODIALYSIS GRAFT, SYNTHETIC GRAFT Routine 04/03/2021 6:35 AM EDT documented in this encounter Results * Hepatitis B Surface Antigen (04/03/2021 5:38 PM EDT) Pathologist [facility] Hepatitis B Surface Antigen Negative Negative [facility] Blood 04/03/2021 5:38 PM EDT 04/03/2021 6:42 PM EDT Narrative Resulting Agency Comment Spec In Lab Crystal Mcdermott MD CHEMISTRY ORDERABLE S [facility] [place] [address] * COVID-19 PCR (04/03/2021 9:39 AM EDT) SARS-CoV-2 RNA (Rapid) Not Detected Not Detected [facility] Comment: This result should be [...] using the Simplexa COVID-19 Direct Assay by [employer] as authorized by the FDA issued Emergency [...] Department of Pathology and Laboratory Medicine at [facility], certified under the Clinical [...] fact sheets at the following FDA website: https://www.fda.gov/medical-devices/apgbkbhkoiw-naoqvmn-1101-fulbr-46-rtpksrxty- use-a fouruotilwcfm-jxehezr-rqgtvue/yfczh-lzrqwfyjnqv-iwyu SARS-CoV-2 Source SUPERINTENDENT CUSTODIAN JANITOR Swab [facility] Nasopharyngeal Swab 04/03/20 9:39 AM EDT 04/03/2021 9:50 AM EDT Comment:Symptoms->Surveillan ce Narrative Resulting Agency Comment Spec In Lab Odalis Tong MD MICROBIOLOGY - GENERAL ORDERABLES Performing Organization Address City/[facility]/ZIP Co de Phone Number [facility] [place] [address] * Potassium (04/03/2021 6:55 AM EDT) Potassium 5.0 3.5 - 5.0 mmol/L [facility] MD CHEMISTRY ORDER KELLY Performing Organization Address [facility] Co de Phone Number [facility] [place] [address] documented in this encounter Visit Diagnoses Not [...] premix bags) infusion (COMPLETED) 2 g, Intravenous, DANCE HISTORIAN TO O.R., 1 dose, On Mariza 04/03/21 [...] Intra-Operative (Intra-Procedure) 1053 (Given - Provider: Odalis oTng MD)1054 (Given - Provider: Odalis Tong MD) [...] first. documented in this encounter Care Teams Singing Telegram Performer Relationship Specialty Start Date End Date Carroll Fuentes DO [address] [place] [address] [facility] [address] [place] [address] PCP - General 09/23/11 10/20/22 documented as of this encounter
--- OUTSIDE RECORDS SUMMARY | 2024-05-23 13:15 | XMS_ITS | Encounter Summary ---
[place] [address] Care Team Providers Care Electronic Equipment Maint Tech Name Role Phone Carroll Fuentes DO Primary Care Provider [phone] Encounter Details Date Type Department Care Team (Late st Contact Info) Description 06/06/2021 Telephone [place] [phone] Maisha You RN Social History Tobacco Use [...] You RN - 06/06/2021 3:37 PM EST Systems Tester faxed office note from today's visit to [facility] dialysis unit per request of PRAVEENA Snyder. documented in this encounter Plan of Treatment Not on file documented as of this encounter Visit Diagnoses Not on filedocumented in this encounter Care Teams Electronic Equipment Maint Tech Relationship Specialty Start Date End Date Carroll Fuentes, DO [address] [place] [address] PCP - General 09/23/11 10/20/22 documented as of this encounter
--- OUTSIDE RECORDS SUMMARY | 2024-05-23 13:16 | XMS_ITS | Encounter Summary ---
Author Organization [facility] [place] [address] Care Team Providers Care Sealer Sander Name Role Phone Carroll Fuentes DO Primary Care Provider [phone] Encounter Details Date Type Department Care Team (Late st Contact Info) Description 01/15/2020 Telephone [place] [address] Tessa Flores MSW [facility] [address] Social History Tobacco Use Types Packs/Day Years [...] the facility that Adama is at in [place] to double check to see if they could accommodate his needs if they had another staff member. Adama said that he would also contact [place] Medicaid to see if they would pay for an extra staff member. Adama said that he could also research whether or not Adama could go to another facility while he recuperates and then transfers back to [place]. Worker informed Adama that there would need [...] on filedocumented in this encounter Care Teams Sealer Sander Relationship Specialty Start Date End Date Carroll Fuentes DO [address] [place] [address] PCP - General 09/23/11 10/20/22 documented as of this encounter
--- OUTSIDE RECORDS SUMMARY | 2024-05-23 13:16 | XMS_ITS | Encounter Summary ---
Author Organization Counts Include [address] [facility] [address] Care Team Providers Care Cardiac Monitor Name Role Phone AlfredoCarroll allison Primary Care Provider Encounter Details Date Type Department Care Team (Late st Contact Info) Description 11/28/2019 Telephone Solid [place] [address] Michell Roque, EVENT ORGANIZER [facility] [place] [address] Social History Tobacco Use Types Packs/Day Years [...] evaluation. Cause of Kidney Disease: Unknown Dialysis: [facility] [place] OF [address] [place] [address] Height: 5'10 Weight: 210# BMI: 30.1 Past [...] - Tunneled Line 08/30/2018 Erwin Simon APRN [facility] INTERVENTIONL RAD ??? [...] performed by Miguel Angel Moreno MD at [facility] OR ??? PRO DECOMPRESS FOREARM, BRACH ART EXPLOR Left 04/06/2018 FASCIOTOMY, FOREARM, WITH BRACHIAL ARTERY EXPLORATION (WRVU 8.41) performed by Lida Peter MDat [facility] OR ??? PRO DIRECT REPAIR RUPTURED ANEURYSM, AXILLO-BRACHIAL ARM INCIS Left 04/06/2018 @REPAIR, RUPTURED AXILLARY OR BRACHIAL ARTERY ANEURYSM BY ARM INCISION (WRVU *) performed by Lida Peter MD at [facility] OR ??? PRO EXC PAROTD, TOTAL, UNILAT RAD NECK Left 02/05/2016 @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, TOTAL, WITH UNILATERAL RADICAL NECK DISSECTION performed by Miguel Angel Moreno MD at [facility] OR ??? PRO EXC SKIN MALIG 3.1-4CM [...] 25.06) performed by Jax Mills MD at [facility] MAIN OR ??? PRO LIGATN ANGIOACCESS AV FISTULA Left 04/19/2018 LIGATION OR BANDING OF HEMODIALYSIS FISTULA OR GRAFT UPPER EXTREMITY (WRVU 6.25) performed by Odalis Elias MD at [facility] MAIN OR ??? PRO NEGATIVE PRESSURE WOUND THERAPY, LESS THAN OR EQUAL TO 50 SQCM Left 04/19/2018 DRESSING CHANGE (VAC ASSISTED) UP TO 50SQ.CM (WRVU 0.55) performed by Odalis Elias MD [facility] MAIN OR ??? PRO REBL VES GRAFT, UP EXTREM Left 04/06/2018 REPAIR BLOOD VESSEL WITH GRAFT OTHER THAN VEIN, UPPER EXTREMITY (WRVU 15.83) performed by Lida Peter MD at [facility] MAIN OR ??? PRO RELIEVE PRESSURE ON NERVE(S) Left 04/06/2018 (MSURG) CARPAL TUNNEL (WRVU 4.82) performed by Silviano Sparks MD at [facility] MAIN OR ??? PRO REPAIR INTERMEDIATE S/A/T/E 2.6-7.5 CM 04/19/2012 REPAIR INTERMEDIATE WOUND, (NO HANDS OR FEET) 2.6 TO 7.5CM, UPPER EXTREMITY performed by SABRINA SANCHEZ at [facility] MAIN OR ? ? PRO REPAIR INTERMEDIATE S/A/T/E > 30.0 CM Left 04/14/2018 REPAIR INTERMEDIATE WOUND, (NO HANDS OR FEET) >30.0CM, UPPER EXTREMITY (WRVU 5) performed by Yimi Easton MD at [facility] MAIN OR ??? PRO REVISE MEDIAN N/CARPAL TUNNEL SURG Left 04/06/2018 MEDIAN NERVE DECOMPRESSION (CARPAL TUNNEL RELEASE) (WRVU 4.97) performed by Lida Peter MD [facility] MAIN OR ? ? PRO SPLIT [...] at [facility] ENDOSCOPY ??? PRO VASCULAR SURGERY PROCEDURE UNLIST Left 11/20/2015 LIGATION\REPAIR AV FISTULA performed by Camilo Ireland MD at [facility] MAIN OR ??? PRO VASCULAR SURGERY PROCEDURE UNLIST Left 11/20/2015 EXCISION VEIN FROM HAND performed by Camilo Ireland MD at [facility] MAIN OR ??? US RENAL TRANSPLANT BIOPSY 12/31/2010 ??? US RENAL TRANSPLANT RIGHT Right 06/04/2018 US Renal Transplant Right 06/04/2018 [facility] RAD ULTRASOUND Social History Tobacco Use [...] on filedocumented in this encounter Care Teams Cardiac Monitor Relationship Specialty Start Date End Date Carroll Fuentes DO [address] [facility] [address] [place] [address] PCP - General 09/23/11 10/20/22 documented as of this encounter
--- OUTSIDE RECORDS SUMMARY | 2024-05-23 13:16 | XMS_ITS | Encounter Summary ---
Author Organization [facility] Address [facility] [place] [address] Care Team Providers Care Needle Grader Name Role Phone AlfredoCarroll allison Primary Care Provider [phone] Encounter Details Date Type Department Care Team (Late st Contact Info) Description 12/16/2018 Notes [place] [address] Nilda Minaya, NOVELTY TWISTER TENDER [facility] [place] [address] Social History Tobacco Use Types Packs/Day Years [...] be given at that time. Pt's residence; [facility]; [facility] are both aware. documented in this encounter Plan of Treatment Not on file documented as of this encounter Visit Diagnoses Not on filedocumented in this encounter Care Teams Needle Grader Relationship Specialty Start Date End Date Carroll Fuentes DO [address] [place] [address] PCP - General 09/23/11 10/20/22 documented as of this encounter
--- OUTSIDE RECORDS SUMMARY | 2024-05-23 13:16 | XMS_ITS | Encounter Summary ---
[place] [address] Care Team Providers Care Specialty Cook Name Role Phone Carroll Fuentes DO Primary Care Provider Encounter Details Date Type Department Care Team (Late st Contact Info) Description 12/14/2018 Orders Only Ne[place] [address] Sagrario Hodges, RN Social History Tobacco Use [...] on filedocumented in this encounter Care Teams Specialty Cook Relationship Specialty Start Date End Date Carroll Fuentes DO [address] [place] [address] PCP - General 09/23/11 10/20/22 documented as of this encounter
--- OUTSIDE RECORDS SUMMARY | 2024-05-23 13:16 | XMS_ITS | Encounter Summary ---
[place] [address] Care Team Providers Care Product Support Representative Name Role Phone Carroll Fuentes DO Primary Care Provider [phone] Encounter Details Date Type Department Care Team (Late st Contact Info) Description 12/16/2018 Orders [place] [address] Henna Cerrato RN SDH (subdural hematoma) Social [...] hemorrhage documented in this encounter Care Teams Product Support Representative Relationship Specialty Start Date End Date Carroll Fuentes DO [address] [place] [address] PCP - General 09/23/11 10/20/22 documented as of this encounter
--- OUTSIDE RECORDS SUMMARY | 2024-05-23 13:16 | XMS_ITS | Encounter Summary ---
Author Organization [facility] [place] [address] Care Team Providers Care Sharepoint Solutions Developer Name Role Phone AlfredoCarroll allison Primary Care Provider [phone] Encounter Details Date Type Department Care Team (Late st Contact Info) Description 12/08/2019 Telephone [place] [address] Michell Roque, CAMPAIGN DIRECTOR [facility] DR TRANSPL[place] [address] Social History Tobacco Use Types Packs/Day Years [...] on filedocumented in this encounter Care Teams Sharepoint Solutions Developer Relationship Specialty Start Date End Date Carroll Fuentes DO [address] [place] [address] PCP - General 09/23/11 10/20/22 documented as of this encounter
--- OUTSIDE RECORDS SUMMARY | 2024-05-23 13:16 | XMS_ITS | Encounter Summary ---
Author Organization [facility] Address [facility] [place] [address] Care Team Providers Care Pipe Line Gauger Name Role Phone Carroll Fuentes DO Primary Care Provider Reason for Referral * Diagnostic Test (Routine) - Closed Specialty Diagnoses / Procedures Referred By Shashi ko Referred To Contact Radiology Diagnoses ESRD (end stage renal disease) Procedures IR Dialysis Access - Tunneled Line Carroll Baires MD [facility] [place] [address] [place] [address] Referral ID Status Reason Start Date Expiration Date V isits Requested Visits Authorized [id number] Closed Specialty Service Requested 01/21/2021 07/24/2022 1 1 Encounter Details Date Type Department Care Team (Late st Contact Info) Description 01/21/2021 Orders Only [place] [address] Carroll Baires MD [facility] [address] ESRD (end stage renal disease) Social History [...] removed; a 8 mm x 4 cm SQE balloon was advanced and inflated along the [...] 1. No SVC stenosis on venography 2. SQE balloon disruption of any potential catheter-related sheath [...] disease documented in this encounter Care Teams Pipe Line Gauger Relationship Specialty Start Date End Date Carroll Fuentes DO [address] [facility] [address] [place] [address] PCP - General 09/23/11 10/20/22 documented as of this encounter
--- OUTSIDE RECORDS SUMMARY | 2024-05-23 13:16 | XMS_ITS | Encounter Summary ---
Author Organization [facility] Address [facility] [place] [address] Care Team Providers Care Correctional Lieutenant Name Role Phone AlfredoCarroll allison Primary Care Provider [phone] Encounter Details Date Type Department Care Team (Late st Contact Info) Description 12/18/2018 [place] [address] Damián Richter MD [facility] [address] Social History Tobacco Use Types Packs/Day Years [...] 12:00 PM EDT Called by staff at [facility] regarding this patient. He had a [...] filedocumented in this encounter Care Teams Correctional Lieutenant Relationship Specialty Start Date End Date Carroll Fuentes DO [address] [place] [address] [address] [place] [address] PCP - General 09/23/11 10/20/22 documented as of this encounter
--- OUTSIDE RECORDS SUMMARY | 2024-05-23 13:16 | XMS_ITS | Encounter Summary ---
Author Organization [facility] [place] [address] Care Team Providers Care Drafting Detailer Name Role Phone AlfredoCarroll geiger Primary Care Provider [phone] Reason for Referral * Diagnostic Test (Routine) - Closed Specialty Diagnoses / Procedures Referred By Shashi ko Referred To Contact Radiology Diagnoses ESRD (end stage renal disease) Procedures IR Dialysis Access - AV Fistula Evaluations Giovani Molina MBBS [facility] [place] [address] [place] [address] Referral ID Status Reason Start Date Expiration Date V isits Requested Visits Authorized [id number] Closed Specialty Service Requested 11/29/2019 05/31/2021 1 1 Encounter Details Date Type Department Care Team (Late st Contact Info) Description 11/29/2019 Orders Only Nephrology [place] [address] Giovani Molina MBBS [facility] [place] [address] ESRD (end stage renal disease) [...] and innominate veins. ??The central facing 6 Congolese sheath was exchanged for an 8 Congolese sheath. ??A 16 mm angioplasty balloon catheter was placed and used to dilate the subclavian and innominate stenosis. ??Post MATTRESS FILLING MACHINE TENDER venography showed persistent stenosis. ??An 18 mm angioplasty balloon catheter was then placed and also used to dilate the stenosis. ??Post MATTRESS FILLING MACHINE TENDER venography showed mild residual stenosis. ? 8 Congolese sheath was removed after placement of a pursestring suture, to be released later in Recovery. ??The 6 Congolese sheath was removed and hemostasis obtained with manual compression and a tip stop. ?? Medications: Fentanyl 175 mcg IV, Versed 3.5 mg IV, 1% Lidocaine <10ccs subcutaneous. ?? Est Blood Loss: <5cc. ?? Complications: ??No immediate. ?? Impression: ?? 1. ??Right arm brachio-axillary AV graft was thrombosed. ?? 2. ??Mechanical declot, 8mm MATTRESS FILLING MACHINE TENDER of venous anastomosis, 6mm MATTRESS FILLING MACHINE TENDER of arterial anastomosis. ?? 3. ??Flow from anastomosis centrally, axilla to subclavian vein, via three channels ?? 4. 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 ?? Resident/Fellow: ??None. ?? Attending: I, Dr. Velez performed this procedure. ??I was present during the intraservice time as documented by the IR Nurse.? Post 18mm MATTRESS FILLING MACHINE TENDER ? Trever Boyd MD IMG IR ORDERABLES documented in this encounter Visit Diagnoses Diagnosis ESRD (end stage renal disease) End stage renal disease ESRD (end stage renal disease) End stage renal disease documented in this encounter Care Teams Drafting Detailer Relationship Specialty Start Date End Date Carroll Fuentes DO [address] [place] [address] PCP - General 09/23/11 10/20/22 documented as of this encounter
--- OUTSIDE RECORDS SUMMARY | 2024-05-23 13:16 | XMS_ITS | Encounter Summary ---
Author Organization [facility] [place] [address] Care Team Providers Care Tier Truck Driver Name Role Phone AlfredoCarroll allison Primary Care Provider [phone] Encounter Details Date Type Department Care Team (Late st Contact Info) Description 11/16/2019 Telephone [place] [address] Michell Roque, MASTER [facility] [place] [address] Social History Tobacco Use Types Packs/Day Years [...] on filedocumented in this encounter Care Teams Tier Truck Driver Relationship Specialty Start Date End Date Carroll Fuentes DO [address] [facility] [place] [address] PCP - General 09/23/11 10/20/22 documented as of this encounter
--- OUTSIDE RECORDS SUMMARY | 2024-05-23 13:16 | XMS_ITS | Encounter Summary ---
Author Organization [facility] Address [facility] [place] [address] Care Team Providers Care Heavy Equipment Technician Name Role Phone Carroll Fuentes DO Primary Care Provider Encounter Details Date Type Department Care Team (Late st Contact Info) Description 12/17/2018 12:05 AM EDT Ancillary Procedure Radiology Library at [facility] [place] [address] Carroll Fuentes DO [address] [place], [place] [address] Social History Tobacco Use Types Packs/Day Years [...] IMG FILM LIBRARY ORD ERABLES MIGUEL ÁNGEL [place], [place] documented in this encounter Visit Diagnoses Not on filedocumented in this encounter Care Teams Heavy Equipment Technician Relationship Specialty Start Date End Date Carroll Fuentes DO [address] [place] [address] PCP - General 09/23/11 10/20/22 documented as of this encounter
--- OUTSIDE RECORDS SUMMARY | 2024-05-23 13:16 | XMS_ITS | Encounter Summary ---
Author Organization [facility] Address [facility] [place] [address] Care Team Providers Care Grade Tamper Name Role Phone Alfredo, Carroll MIX Primary Care Provider [phone] Encounter Details Date Type Department Care Team (Late st Contact Info) Description 12/23/2020 Telephone [place] [address] Tessa Flores MSW [facility] [place] [address] Social History Tobacco Use Types Packs/Day Years [...] Worker received a call from Padmini from [employer] last week asking about Adama Ram as [...] worker received a call from Curtis from [employer] asking about Adama's compliance. Worker left a message saying the same thing as above. Worker remains available should any other needs arise. documented in this encounter Plan of Treatment Not on file documented as of this encounter Visit Diagnoses Not on filedocumented in this encounter Care Teams Grade Tamper Relationship Specialty Start Date End Date Carroll Fuentes DO [address] [place] [address] PCP - General 09/23/11 10/20/22 documented as of this encounter
--- OUTSIDE RECORDS SUMMARY | 2024-05-23 13:16 | XMS_ITS | Encounter Summary ---
Author Organization [facility] Address [facility] [place] [address] Care Team Providers Care Tea Leaf Reader Name Role Phone Alfredo Carroll MIX Primary Care Provider [phone] Encounter Details Date Type Department Care Team (Late st Contact Info) Description 08/30/2020 Telephone [place] [address] Tessa Flores MSW [facility] [place] [address] Social History Tobacco Use Types Packs/Day Years [...] from Adama's brother Lucas regarding his insurance. Adama has been on [place] Medicaid for several years. He has been [...] [facility]. Lucas said he appreciated the information. documented in this encounter Plan of Treatment Not on file documented as of this encounter Visit Diagnoses Not on filedocumented in this encounter Care Teams Tea Leaf Reader Relationship Specialty Start Date End Date Carroll Fuentes DO [address] [place] [address] PCP - General 09/23/11 10/20/22 documented as of this encounter
--- OUTSIDE RECORDS SUMMARY | 2024-05-23 13:16 | XMS_ITS | Encounter Summary ---
Author Organization [facility] Address [facility] [place] [address] Care Team Providers Care Security Project Manager Name Role Phone AlfredoCarroll allison Primary Care Provider Encounter Details Date Type Department Care Team (Late st Contact Info) Description 01/13/2019 [place] [address] Odalis Jacob Social History Tobacco Use Types [...] in ER 01/[address] Called [facility] to push CT = pushing now When report completed Litzy in radiology will fax report documented in this encounter Plan of Treatment Not on file documented as of this encounter Visit Diagnoses Not on filedocumented in this encounter Care Teams Security Project Manager Relationship Specialty Start Date End Date Carroll Fuentes DO [address] [place] [address] [address] [facility] [address] [place] [address] PCP - General 09/23/11 10/20/22 documented as of this encounter
--- OUTSIDE RECORDS SUMMARY | 2024-05-23 13:16 | XMS_ITS | Encounter Summary ---
Author Organization [facility] [place] [address] Care Team Providers Care Hvac Tech Name Role Phone AlfredoCarroll allison Primary Care Provider [phone] Reason for Referral * Diagnostic Test (Routine) - Closed Specialty Diagnoses / Procedures Referred By Shashi ko Referred To Contact Radiology Diagnoses ESRD (end stage renal disease) Procedures IR Dialysis Access - AV Fistula Evaluations Giovani Molina MBBS [facility] [place] [address] [place] [address] Referral ID Status Reason Start Date Expiration Date V isits Requested Visits Authorized [id number] Closed Specialty Service Requested 11/29/2019 05/31/2021 1 1 Reason for Visit * Diagnostic Test (Routine) - Closed Specialty Diagnoses / Procedures Referred By Shashi ko Referred To Contact Radiology Diagnoses ESRD (end stage renal disease) Procedures IR Dialysis Access - AV Fistula Evaluations Giovani Molina MBBS [facility] [place] [address] [place] [address] Referral ID Status Reason Start Date Expiration Date V isits Requested Visits Authorized [id number] Closed Specialty Service Requested 11/29/2019 05/31/2021 1 1 Encounter Details Date Type Department Care Team (Latest Contact Info) Description 11/30/2019 6:19 AM EDT - 11/30/2019 11:59 PM EDT Hospital [place] [id number] Trever Boyd MD [facility] [place] [address] ESRD (end stage renal disease) Discharge Disposition: [...] Eng RN - 11/30/2019 7:04 AM EDT [facility] Vascular and Interventional Radiology Discharge Instructions [...] is during regular office hours, please call [phone]. If it is after regular office hours, or on weekends or holidays, please call [phone] and ask to speak to the Equity Trader manager utilization for Interventional Radiology. You have received medication [...] of : 1960 AGE: 59 y.o. Address: [address] [place] [address] (home) Mobile: Telephone Information: Referring Provider: Giovani Molina REASON FOR VISIT: Order Questions Answers Where will study be performed? [facility] Radiology [120] Laterality Right Is the [...] ml/min N18.4 ??? 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 half-way current [...] FOCUSED H&P: Procedure: Planned procedure: RUE AVG [id number] The patient's history and physical exam have [...] Molina Planned Procedure: Planned procedure: RUE AVG [id number] RUE [id number] Order Questions Answers Where will study be performed? [facility] Radiology [120] Laterality Right Is the [...] ml/min N18.4 ??? 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 half-way current [...] - Tunneled Line 07/30/2018 Walt Lin MD [facility] INTERVENTIONL RAD ??? IR DIALYSIS ACCESS - TUNNELED LINE 08/30/2018 IR Dialysis Access - Tunneled Line 08/30/2018 Erwin Simon APRN [facility] INTERVENTIONL RAD ??? KIDNEY TRANSPLANT KIDNEY TRANSPLANT / RECIPIENT/LT Procedure Date: 11/26/2002 ??? PRO CREAT AV FISTULA, NON-AUTOGENOUS GRAFT Right 12/13/2018 PLACEMENT, AV HEMODIALYSIS GRAFT, SYNTHETIC GRAFT, UPPER EXTREMITY (WRVU 12.03) performed by Mary Garay MD at [facility] OR ? ? PRO DEBRIDEMENT SUBCUTANEOUS TISSUE 20 SQCM/< Left 02/20/2016 DEBRIDEMENT SKIN AND SUBCU, HEAD/NECK performed by Miguel Angel Moreno MD at [facility] OR ??? PRO DECOMPRESS FOREARM, BRACH ART EXPLOR Left 04/06/2018 FASCIOTOMY, FOREARM, WITH BRACHIAL ARTERY EXPLORATION (WRVU 8.41) performed by Lida Peter, Laureent [facility] OR ??? PRO DIRECT REPAIR RUPTURED ANEURYSM, AXILLO-BRACHIAL ARM INCIS Left 04/06/2018 @REPAIR, RUPTURED AXILLARY OR BRACHIAL ARTERY ANEURYSM BY ARM INCISION (WRVU *) performed by Lida Peter MD at [facility] OR ??? PRO EXC PAROTD, TOTAL, UNILAT RAD NECK Left 02/05/2016 @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, TOTAL, WITH UNILATERAL RADICAL NECK DISSECTION performed by Miguel Angel Moreno MD at [facility] OR ??? PRO EXC SKIN MALIG 3.1-4CM FACE, FACIAL Left 02/05/2016 EXC MALIGNANT LESION, 3.1 TO 4.0CM, FACE performed by Miguel Angel Moreno MD at [facility] OR ? ? PRO EXC SKIN MALIG >4CM TRUNK, ARM, LEG 04/19/2012 EXC MALIGNANT LESION, MICHAEL > 4.0CM, TRUNK performed by SABRINA SANCHEZ at [facility] OR ??? PRO LAP, RADICAL NEPHRECTOMY Left 05/31/2017 @LAPAROSCOPY, RADICAL NEPHRECTOMY (WRVU 25.06) performed by Jax Mills MD at [facility] OR ??? PRO LIGATN ANGIOACCESS AV FISTULA Left 04/19/2018 LIGATION OR BANDING OF HEMODIALYSIS FISTULA OR GRAFT UPPER EXTREMITY (WRVU 6.25) performed by Odalis Elias MD at [facility] OR ??? PRO NEGATIVE PRESSURE WOUND THERAPY, LESS THAN OR EQUAL TO 50 SQCM Left 04/19/2018 DRESSING CHANGE (VAC ASSISTED) UP TO 50SQ.CM (WRVU 0.55) [facility] ??? PRO REBL VES GRAFT, UP EXTREM Left 04/06/2018 REPAIR BLOOD VESSEL WITH GRAFT OTHER THAN VEIN, UPPER EXTREMITY (WRVU 15.83) performed by Lida Peter MD at [facility] MAIN OR ??? PRO RELIEVE PRESSURE ON NERVE(S) Left 04/06/2018 (MSURG) CARPAL TUNNEL (WRVU 4.82) performed by Silviano Sparks MD at [facility] MAIN OR ??? PRO REPAIR INTERMEDIATE S/A/T/E 2.6-7.5 CM 04/19/2012 REPAIR INTERMEDIATE WOUND, (NO HANDS OR FEET) 2.6 TO 7.5CM, UPPER EXTREMITY performed by SABRINA SANCHEZ at [facility] MAIN OR ? ? PRO REPAIR INTERMEDIATE S/A/T/E > 30.0 CM Left 04/14/2018 REPAIR INTERMEDIATE WOUND, (NO HANDS OR FEET) >30.0CM, UPPER EXTREMITY (WRVU 5) performed by Yimi Easton MD at [facility] MAIN OR ??? PRO REVISE MEDIAN N/CARPAL TUNNEL SURG Left 04/06/2018 MEDIAN NERVE DECOMPRESSION (CARPAL TUNNEL RELEASE) (WRVU 4.97) performed by Lida Peter MD [facility] MAIN OR ? ? PRO SPLIT GRFT TRUNK, ARM, LEG <100SQCM Left 04/26/2018 SPLIT THICK SKIN GRAFT,100 SQ CM OR LESS, ARMS (WRVU 9.9) performed by Silviano Sparks MD at [facility] MAIN OR ? ? PRO SPLIT GRFT, HEAD, FAC, HAND, FEET <100SQCM N/A 02/20/2016 SPLIT THICKNESS SKIN SPLIT GRAFT,100SQ CM OR LESS, NECK performed by Miguel Angel Moreno MD at [facility] MAIN OR ??? PRO SPLIT GRFT, TRUNK, ARM, LEG EA 100SQCM N/A 04/26/2018 EA.ADDITIONAL 100SQ.CM STSG (WRVU 1.72) performed by Silviano Sparks MD at [facility] MAIN OR ??? PRO UPPER GI ENDOSCOPY, BIOPSY N/A 05/13/2017 EGD WITH BIOPSY (WRVU 2.49) performed by Aditya Barrera MD at [facility] ENDOSCOPY ??? PRO VASCULAR SURGERY PROCEDURE UNLIST Left 11/20/2015 LIGATION\REPAIR AV FISTULA performed by Camilo Ireland MD at [facility] MAIN OR ??? PRO VASCULAR SURGERY PROCEDURE UNLIST Left 11/20/2015 EXCISION VEIN FROM HAND performed by Camilo Ireland MD at [facility] MAIN OR ??? US RENAL TRANSPLANT BIOPSY 12/31/2010 ??? US RENAL TRANSPLANT RIGHT Right 06/04/2018 US Renal Transplant Right 06/04/2018 [facility] RAD ULTRASOUND Medications: Current Outpatient Medications on [...] Not on file Occupational History ??? 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 Plan: Plan Planned procedure: RUE AVG [id number] Labs to be performed day of procedure: [...] Molina Planned Procedure: Planned procedure: RUE AVG [id number] RUE [id number]-a-[id number] Order Questions Answers Where will study be performed? [facility] Radiology [120] Laterality Right Is the [...] ml/min N18.4 ??? 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 IR DIALYSIS ACCESS - TUNNELED LINE 08/30/2018 IR Dialysis Access - Tunneled Line 08/30/2018 Erwin Simon, INSTALLER TECHNICIAN [facility] INTERVENTIONL RAD ??? KIDNEY TRANSPLANT KIDNEY TRANSPLANT / RECIPIENT/LT Procedure Date: 11/26/2002 ??? PRO CREAT AV FISTULA, NON-AUTOGENOUS GRAFT Right 12/13/2018 PLACEMENT, AV HEMODIALYSIS GRAFT, SYNTHETIC GRAFT, UPPER EXTREMITY (WRVU 12.03) performed by Mary Garay MD at [facility] MAIN OR ? ? PRO DEBRIDEMENT SUBCUTANEOUS TISSUE 20 SQCM/< Left 02/20/2016 DEBRIDEMENT SKIN AND SUBCU, HEAD/NECK performed by Miguel Angel Moreno MD at [facility] OR ??? PRO DECOMPRESS FOREARM, BRACH ART EXPLOR Left 04/06/2018 FASCIOTOMY, FOREARM, WITH BRACHIAL ARTERY EXPLORATION (WRVU 8.41) performed by Lida Peter, [employer]ure[employer] [facility] MAIN OR ??? PRO DIRECT REPAIR RUPTURED ANEURYSM, AXILLO-BRACHIAL ARM INCIS Left 04/06/2018 @REPAIR, RUPTURED AXILLARY OR BRACHIAL ARTERY ANEURYSM BY ARM INCISION (WRVU *) performed by Lida Peter MD at [facility] MAIN OR ??? PRO EXC PAROTD, TOTAL, UNILAT RAD NECK Left 02/05/2016 @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, TOTAL, WITH UNILATERAL RADICAL NECK DISSECTION performed by Miguel Angel Moreno MD at [facility] OR ??? PRO EXC SKIN MALIG 3.1-4CM FACE, FACIAL Left 02/05/2016 EXC MALIGNANT LESION, 3.1 TO 4.0CM, FACE performed by Miguel Angel Moreno MD at [facility] MAIN OR ? ? PRO EXC SKIN MALIG >4CM TRUNK, ARM, LEG 04/19/2012 EXC MALIGNANT LESION, MICHAEL > 4.0CM, TRUNK performed by SABRINA SANCHEZ at [facility] MAIN OR ??? PRO LAP, RADICAL NEPHRECTOMY Left 05/31/2017 @LAPAROSCOPY, RADICAL NEPHRECTOMY (WRVU 25.06) performed by Jax Mills MD at [facility] OR ??? PRO LIGATN ANGIOACCESS AV FISTULA Left 04/19/2018 LIGATION OR BANDING OF HEMODIALYSIS FISTULA OR GRAFT UPPER EXTREMITY (WRVU 6.25) performed by Odalis Elias MD at [facility] MAIN OR ??? PRO NEGATIVE PRESSURE WOUND THERAPY, LESS THAN OR EQUAL TO 50 SQCM Left 04/19/2018 DRESSING CHANGE (VAC ASSISTED) UP TO 50SQ.CM (WRVU 0.55) performed by Odalis Elias MD [facility] MAIN OR ??? PRO REBL VES GRAFT, UP EXTREM Left 04/06/2018 REPAIR BLOOD VESSEL WITH GRAFT OTHER THAN VEIN, UPPER EXTREMITY (WRVU 15.83) performed by Lida Peter MD at [facility] MAIN OR ??? PRO RELIEVE PRESSURE ON NERVE(S) Left 04/06/2018 (MSURG) CARPAL TUNNEL (WRVU 4.82) performed by Silviano Sparks MD at [facility] MAIN OR ??? PRO REPAIR INTERMEDIATE S/A/T/E 2.6-7.5 CM 04/19/2012 REPAIR INTERMEDIATE WOUND, (NO HANDS OR FEET) 2.6 TO 7.5CM, UPPER EXTREMITY performed by SABRINA SANCHEZ at [facility] MAIN OR ? ? PRO REPAIR INTERMEDIATE S/A/T/E > 30.0 CM Left 04/14/2018 REPAIR INTERMEDIATE WOUND, (NO HANDS OR FEET) >30.0CM, UPPER EXTREMITY (WRVU 5) performed by Yimi Easton MD at [facility] MAIN OR ??? PRO REVISE MEDIAN N/CARPAL TUNNEL SURG Left 04/06/2018 MEDIAN NERVE DECOMPRESSION (CARPAL TUNNEL RELEASE) (WRVU 4.97) performed by Lida Peter MD [facility] OR ? ? PRO SPLIT GRFT TRUNK, ARM, LEG <100SQCM Left 04/26/2018 SPLIT THICK SKIN GRAFT,100 SQ CM OR LESS, ARMS (WRVU 9.9) performed by Silviano Sparks MD at [facility] MAIN OR ? ? PRO SPLIT GRFT, HEAD, FAC, HAND, FEET <100SQCM N/A 02/20/2016 SPLIT THICKNESS SKIN SPLIT GRAFT,100SQ CM OR LESS, NECK performed by Miguel Angel Moreno MD at [facility] OR ??? PRO SPLIT GRFT, TRUNK, ARM, LEG EA 100SQCM N/A 04/26/2018 EA.ADDITIONAL 100SQ.CM STSG (WRVU 1.72) performed by Silviano Sparks MD at [facility] MAIN OR ??? PRO UPPER GI ENDOSCOPY, BIOPSY N/A 05/13/2017 EGD WITH BIOPSY (WRVU 2.49) performed by Aditya Barrera MD at [facility] ENDOSCOPY ??? PRO VASCULAR SURGERY PROCEDURE UNLIST Left 11/20/2015 LIGATION\REPAIR AV FISTULA performed by Camilo Ireland MD at [facility] MAIN OR ??? PRO VASCULAR SURGERY PROCEDURE UNLIST Left 11/20/2015 EXCISION VEIN FROM HAND performed by Camilo Ireland MD at [facility] MAIN OR ??? US RENAL TRANSPLANT BIOPSY 12/31/2010 ??? US RENAL TRANSPLANT RIGHT Right 06/04/2018 US Renal Transplant Right 06/04/2018 [facility] RAD ULTRASOUND Medications: Current Outpatient Medications on [...] Not on file Occupational History ??? 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 Plan: Plan Planned procedure: RUE AVG [id number] Labs to be performed day of procedure: [...] and venous angioplasty. Indication for Procedure: Per Crhisty Ojeda Ginna Ambrose is a 59 y.o. [...] and innominate veins. The central facing 6 [place] sheath was exchanged for an 8 [place] sheath. A 16 mm angioplasty balloon catheter was placed and used to dilate the subclavian and innominate stenosis. Post GROOMING ASSISTANT venography showed persistent stenosis. An 18 mm angioplasty balloon catheter was then placed and also used to dilate the stenosis. Post GROOMING ASSISTANT venography showedmild residual stenosis. 8 [place] sheath was removed after placement of a pursestring suture, to be released later in Recovery. The 6 [place] sheath was removed and hemostasis obtained with manual compression and a tip stop. Medications: Fentanyl 175 mcg IV, Versed 3.5 mg IV, 1% Lidocaine <10ccs subcutaneous. Est Blood Loss: <5cc. Complications: No immediate. Impression: 1. Right arm brachio-axillary AV graft was thrombosed. 2. Mechanical declot, 8mm GROOMING ASSISTANT of venous anastomosis, 6mm GROOMING ASSISTANT of arterial anastomosis. 3. Flow from anastomosis centrally, axilla to subclavian vein, via three channels 4. 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 Resident/Fellow: None. Attending: I, Dr. Velez performed this procedure. I was present during the intraservice time as documented by the IR Nurse. Post 18mm GROOMING ASSISTANT documented in this encounter Plan of Treatment [...] and innominate veins. ??The central facing 6 [place] sheath was exchanged for an 8 [place] sheath. ??A 16 mm angioplasty balloon catheter was placed and used to dilate the subclavian and innominate stenosis. ??Post GROOMING ASSISTANT venography showed persistent stenosis. ??An 18 mm angioplasty balloon catheter was then placed and also used to dilate the stenosis. ??Post GROOMING ASSISTANT venography showed mild residual stenosis. ? 8 [place] sheath was removed after placement of a pursestring suture, to be released later in Recovery. ??The 6 [place] sheath was removed and hemostasis obtained with manual compression and a tip stop. ?? Medications: Fentanyl 175 mcg IV, Versed 3.5 mg IV, 1% Lidocaine <10ccs subcutaneous. ?? Est Blood Loss: <5cc. ?? Complications: ??No immediate. ?? Impression: ?? 1. ??Right arm brachio-axillary AV graft was thrombosed. ?? 2. ??Mechanical declot, 8mm GROOMING ASSISTANT of venous anastomosis, 6mm GROOMING ASSISTANT of arterial anastomosis. ?? 3. ??Flow from anastomosis centrally, axilla to subclavian vein, via three channels ?? 4. 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 ?? Resident/Fellow: ??None. ?? Attending: I, Dr. Velez performed this procedure. ??I was present during the intraservice time as documented by the IR Nurse.? Post 18mm GROOMING ASSISTANT ? Trever Boyd MD IMG IR ORDERABLES [...] mL/hr documented in this encounter Care Teams Hvac Tech Relationship Specialty Start Date End Date Carroll Fuentes DO [address] [place] [address] PCP - General 09/23/11 10/20/22 documented as of this encounter
--- OUTSIDE RECORDS SUMMARY | 2024-05-23 13:16 | XMS_ITS | Encounter Summary ---
Author Organization [facility] [place] [address] Care Team Providers Care Sanitizer Name Role Phone Carroll Fuentes DO Primary Care Provider Encounter Details Date Type Department Care Team (Late st Contact Info) Description 11/14/2019 Abstract [place] [address] Kristyn Fletcher Social History Tobacco Use Types [...] on filedocumented in this encounter Care Teams Sanitizer Relationship Specialty Start Date End Date Carroll Fuentes DO [address] [place] [address] PCP - General 09/23/11 10/20/22 documented as of this encounter
--- OUTSIDE RECORDS SUMMARY | 2024-05-23 13:16 | XMS_ITS | Encounter Summary ---
Author Organization [facility] [place] [address] Care Team Providers Care Firearms Sales Associate Name Role Phone AlfredoCarroll allison Primary Care Provider [phone] Reason for Visit * Reason Onset Date Comments Advice Only 12/18/2018 Encounter Details Date Type Department Care Team (Late st Contact Info) Description 12/18/2018 Telephone [place] [id number] Odalis Castanon MD [facility] [place] [address] Advice Only Social History Tobacco Use Types [...] of non responsiveness. No MÉNDEZ. Went to [facility] yest - labs normal. Incision well appearing. [...] MD/NEHA, PGY-5 Section of Vascular Surgery, Pager [phone] documented in this encounter Plan of Treatment Not on file documented as of this encounter Visit Diagnoses Not on filedocumented in this encounter Care Teams Firearms Sales Associate Relationship Specialty Start Date End Date Carroll Fuentes DO [address] [place] [address] PCP - General 09/23/11 10/20/22 documented as of this encounter
--- OUTSIDE RECORDS SUMMARY | 2024-05-23 13:16 | XMS_ITS | Encounter Summary ---
[facility] [place] [address] Care Team Providers Care Edge Polisher Name Role Phone AlfredoCarroll allison Primary Care Provider [phone] Encounter Details Date Type Department Care Team (Late st Contact Info) Description 12/29/2018 9:30 AM EDT Tech [place] [address] Swapnil New[place] End stage chronic kidney [...] Text Report Department: Vascular Surgery Lab Patient: [id number] (CHRISTY AMBROSE) CPT: 52144 ICD10: N18.6 Referring Physician: ANNA GARAY ?? [...] disease documented in this encounter Care Teams Edge Polisher Relationship Specialty Start Date End Date Carroll Fuentes DO [address] [place] [address] PCP - General 09/23/11 10/20/22 documented as of this encounter
--- OUTSIDE RECORDS SUMMARY | 2024-05-23 13:16 | XMS_ITS | Encounter Summary ---
Author Organization [facility] [place] [address] Care Team Providers Care Tooling Engineer Name Role Phone Carroll Fuentes DO Primary Care Provider Reason for Referral * Diagnostic Test (Emergency) - Closed Specialty Diagnoses / Procedures Referred By Contmike t Referred To Contact Radiology Diagnoses ESRD (end stage renal disease) Procedures IR Dialysis Access - Tunneled Line Gaby Mesa MD [facility] [address] [place] [address] Referral ID Status Reason Start Date Expiration Date V isits Requested Visits Authorized [id number] Closed Specialty Service Requested 12/27/2020 06/28/2022 1 1 Reason for Visit * Diagnostic Test (Emergency) - Closed Specialty Diagnoses / Procedures Referred By Shashi ko Referred To Contact Radiology Diagnoses ESRD (end stage renal disease) Procedures IR Dialysis Access - Tunneled Line Gaby Mesa MD [facility] [place] [address] [place] [address] Referral ID Status Reason Start Date Expiration Date V isits Requested Visits Authorized [id number] Closed Specialty Service Requested 12/27/2020 06/28/2022 1 1 Encounter Details Date Type Department Care Team (Latest Contact Info) Description 12/27/2020 1:02 PM EDT - 12/27/2020 11:59 PM EDT Hospital [place] [address] Gaby Mesa MD ESRD (end stage renal [...] * Discharge Instructions* Dania Swartz RN - 12/27/2020 3:49 PM EDT [facility] Vascular and Interventional Radiology Discharge [...] is during regular office hours, please call [phone]. If it is after regular office hours, or on weekends or holidays, please call [phone] and ask to speak to the Field Operations Coordinator patient registration rep for Interventional Radiology. You have received medication [...] Note Patient Name: Christy Ginna Leanna : [id number] MR#: [id number] Patient presented to IR for dialysis catheter placement 12/27. Patient noted to have tick on left lower abdomen with localized circumferential rash. Tick removed by RN. Spoke with patient's PCP, Dr Carroll Fuentes, who recommended treatment for acute lyme. Prescribed 10 days doxycycline to Agust[facility] in [facility]. * Dania Swartz RN - 12/27/2020 3:11 PM EDT [facility] Name: CHRISTY AMBROSE Date of : 1960 AGE: 60 y.o. Address: [address] [place] [id number] (home) Mobile: Telephone Information: Referring Provider: Gaby Mesa REASON FOR VISIT: Tunneled line placement Order Questions Answers Where will study be performed? [facility] Radiology [120] Is the patient on [...] placement Procedure indication: ESRD, malfunctioning dialysis access, long term durable venous access for dialysis IR workflow: Procedure request received through Interventional Radiology eDH order queue. Order Questions Answers Where will study be performed? [facility] Radiology [120] Is the patient on [...] Vascular Surgery on 12/13/2018 who dialyzes at [facility]. The clinic contacted IR today to report inability to access the patient's graft, with suspicion of possible thrombosis. Patient to present to IR for dialysis catheter placement until fistulagram can be performed. Multiple prior dialysis catheters in setting of nonfunctional lime access. Prior intervention by IR on 11/30/2019 - 1. ??Right arm brachio-axillary AV graft was thrombosed. ?? 2. ??Mechanical declot, 8mm SOLIDS CONTROL TECHNICIAN of venous anastomosis, 6mm SOLIDS CONTROL TECHNICIAN of arterial anastomosis. ?? 3.?Flow from anastomosis centrally, axilla to??subclavian??vein, via??three channels ?? 4.?3cm moderate to??severe stenosis right??central subclavian and??innominate veins, mild residual stenosis after 18mm SOLIDS CONTROL TECHNICIAN. Medical history notable for hypertension, gout, traumatic [...] Access - Tunneled Line 08/30/2018 Erwin Simon, FAMILY SERVICE AIDE [facility] INTERVENTIONL RAD ??? KIDNEY TRANSPLANT KIDNEY TRANSPLANT / RECIPIENT/LT Procedure Date: 11/26/2002 ??? PRO CREAT AV FISTULA, NON-AUTOGENOUS GRAFT Right 12/13/2018 PLACEMENT, AV HEMODIALYSIS GRAFT, SYNTHETIC GRAFT, UPPER EXTREMITY (WRVU 12.03) performed by Mary Garay MD at [facility] MAIN OR ? ? PRO DEBRIDEMENT SUBCUTANEOUS TISSUE 20 SQCM/< Left 02/20/2016 DEBRIDEMENT SKIN AND SUBCU, HEAD/NECK performed by Miguel Angel Moreno MD at [facility] MAIN OR ??? PRO DECOMPRESS FOREARM, BRACH ART EXPLOR Left 04/06/2018 FASCIOTOMY, FOREARM, WITH BRACHIAL ARTERY EXPLORATION (WRVU 8.41) performed by Lida Peter MDat [facility] MAIN OR ??? PRO DIRECT REPAIR RUPTURED ANEURYSM, AXILLO-BRACHIAL ARM INCIS Left 04/06/2018 @REPAIR, RUPTURED AXILLARY OR BRACHIAL ARTERY ANEURYSM BY ARM INCISION (WRVU *) performed by Lida Peter MD at [facility] MAIN OR ??? PRO EXC PAROTD, TOTAL, UNILAT RAD NECK Left 02/05/2016 @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, TOTAL, WITH UNILATERAL RADICAL NECK DISSECTION performed by Miguel Angel Moreno MD at [facility] MAIN OR ??? PRO EXC SKIN MALIG 3.1-4CM FACE, FACIAL Left 02/05/2016 EXC MALIGNANT LESION, 3.1 TO 4.0CM, FACE performed by Miguel Angel Moreno MD at [facility] MAIN OR ? ? PRO EXC SKIN MALIG >4CM TRUNK, ARM, LEG 04/19/2012 EXC MALIGNANT LESION, MICHAEL > 4.0CM, TRUNK performed by SABRINA SANCHEZ at [facility] MAIN OR ??? PRO LAP, RADICAL NEPHRECTOMY Left 05/31/2017 @LAPAROSCOPY, RADICAL NEPHRECTOMY (WRVU 25.06) performed by Jax Mills MD at [facility] OR ??? PRO LIGATN ANGIOACCESS AV FISTULA Left 04/19/2018 LIGATION OR BANDING OF HEMODIALYSIS FISTULA OR GRAFT UPPER EXTREMITY (WRVU 6.25) performed by Odalis Elias MD at [facility] MAIN OR ??? PRO NEGATIVE PRESSURE WOUND THERAPY, LESS THAN OR EQUAL TO 50 SQCM Left 04/19/2018 DRESSING CHANGE (VAC ASSISTED) UP TO 50SQ.CM (WRVU 0.55) performed by Odalis Elias MD [facility] OR ??? PRO REBL VES GRAFT, UP [...] (WRVU 4.97) performed by Lida Peter MD [facility] MAIN OR ? ? PRO [...] [facility] RAD ULTRASOUND Social history and habits: [...] prior dialysis catheters in setting of nonfunctional lime access. ?? Technique: ?? After discussing risks [...] by the IR Nurse. Gaby Mesa MD [facility] IR ORDERABLES documented in this encounter Visit [...] mLs documented in this encounter Care Teams Tooling Engineer Relationship Specialty Start Date End Date Carroll Fuentes DO [address] [place] [address] PCP - General 09/23/11 10/20/22 documented as of this encounter
--- OUTSIDE RECORDS SUMMARY | 2024-05-23 13:16 | XMS_ITS | Encounter Summary ---
Author Organization [facility], [facility]–1983 Address [facility] [place] [address] Care Team Providers Care Cafe Cook Name Role Phone Carroll Fuentes DO Primary Care Provider Encounter Details Date Type Department Care Team (Late st Contact Info) Description 12/18/2018 Ancillary Procedure Radiology Library at [facility] [place] [place] [address] Carroll Fuentes DO [address] [place], [place] [address] Social History Tobacco Use Types Packs/Day Years [...] DX Chest (12/18/2018 12:00 AM EDT) Narrative [facility] - 12/19/2018 11:30 AM EDT This exam is auto-finalizing. It's purpose is for storage only. Carroll Fuentes DO [facility] FILM LIBRARY ORD ERABLES [place], [place] documented in this encounter Visit Diagnoses Not on filedocumented in this encounter Care Teams Cafe Cook Relationship Specialty Start Date End Date Carroll Fuentes DO [address] [place] [address] [address] [place] [address] PCP - General 09/23/11 10/20/22 documented as of this encounter
--- OUTSIDE RECORDS SUMMARY | 2024-05-23 13:16 | XMS_ITS | Encounter Summary ---
Author Organization [facility] [place] [address] Care Team Providers Care Meat Supervisor Name Role Phone Carroll Fuentes DO Primary Care Provider [phone] Encounter Details Date Type Department Care Team (Late st Contact Info) Description 02/06/2021 Telephone [place] [phone] Tessa Flores PLASTER AND STUCCO WORKER [facility] [place] [address] Social History Tobacco Use Types Packs/Day Years [...] saying that Adama just got approved for [facility]. He has been working with Dona from [employer]. He said that Dona informed [place] that Adama most likely did not need a [employer] policy. He just wanted to get a second opinion and checked in with worker.After checking with the financial associate worker informed [place] that he should go with what Dona recommended. No other needs at this time. documented in this encounter Plan of Treatment Not on file documented as of this encounter Visit Diagnoses Not on filedocumented in this encounter Care Teams Meat Supervisor Relationship Specialty Start Date End Date Carroll Fuentes DO [address] [place] [address] PCP - General 09/23/11 10/20/22 documented as of this encounter
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
--- OUTSIDE RECORDS SUMMARY | 2024-05-23 13:16 | XMS_ITS | Encounter Summary ---
Author Organization [facility] Address [facility] [place] [address] Care Team Providers Care Credit Reporter Name Role Phone Alfredo Carroll MIX Primary Care Provider [phone] Encounter Details Date Type Department Care Team (Late st Contact Info) Description 12/03/2020 Telephone [place] [phone] Tessa Flores MSW [facility] [place] [address] Social History Tobacco Use Types Packs/Day Years [...] a booster shot, but keeping up with [facility] or the [facility] would give him the answers in time. No other needs at this time. documented in this encounter Plan of Treatment Not on file documented as of this encounter Visit Diagnoses Not on filedocumented in this encounter Care Teams Credit Reporter Relationship Specialty Start Date End Date Carroll Fuentes DO [address] [place] [address] PCP - General 09/23/11 10/20/22 documented as of this encounter
--- OUTSIDE RECORDS SUMMARY | 2024-05-23 13:16 | XMS_ITS | Encounter Summary ---
Author Organization [facility] Address [facility] [place] [id number] Care Team Providers Care Outboard System Operator Name Role Phone Carroll Fuentes DO Primary Care Provider [phone] Encounter Details Date Type Department Care Team (Late st Contact Info) Description 12/18/2018 12:05 AM EDT Ancillary Procedure Radiology Library at [facility] [place] [id number] Carroll Fuentes DO [address] [place], [place] [address] Social History Tobacco Use Types Packs/Day Years [...] IMG FILM LIBRARY ORD ERABLES MIGUEL ÁNGEL [place], [place] documented in this encounter Visit Diagnoses Not on filedocumented in this encounter Care Teams Outboard System Operator Relationship Specialty Start Date End Date Carroll Fuentes DO [address] [place] [address] PCP - General 09/23/11 10/20/22 documented as of this encounter
--- OUTSIDE RECORDS SUMMARY | 2024-05-23 13:16 | XMS_ITS | Encounter Summary ---
Author Organization [facility] [place] [address] Care Team Providers Care Materials Manager Name Role Phone AlfredoCarroll allison Primary Care Provider [phone] Encounter Details Date Type Department Care Team (Late st Contact Info) Description 12/05/2019 Telephone [place] [address] Michell Roque APRN [facility] [place] [address] Social History Tobacco Use Types Packs/Day Years [...] on filedocumented in this encounter Care Teams Materials Manager Relationship Specialty Start Date End Date Carroll Fuentes DO [address] [place] [address] [address] [facility] [address] [place] [address] PCP - General 09/23/11 10/20/22 documented as of this encounter
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
--- OUTSIDE RECORDS SUMMARY | 2024-05-23 13:16 | XMS_ITS | Encounter Summary ---
Author Organization [facility] Address [facility] [place] [address] Care Team Providers Care Displayer Name Role Phone Carroll Fuentes DO Primary Care Provider [phone] Encounter Details Date Type Department Care Team (Late st Contact Info) Description 09/19/2019 Telephone [place] [id number] Tessa Flores MSW [facility] [place] [address] Social History Tobacco Use Types Packs/Day Years [...] assistance in getting Adama transferred over to [place] from [facility] as he was having trouble with his [...] and suggested that he speak to Adama's Playground Director to have a referral send over to transplant. documented in this encounter Plan of Treatment Not on file documented as of this encounter Visit Diagnoses Not on filedocumented in this encounter Care Teams Displayer Relationship Specialty Start Date End Date Carroll Fuentes DO [address] [place] [address] PCP - General 09/23/11 10/20/22 documented as of this encounter
--- OUTSIDE RECORDS SUMMARY | 2024-05-23 13:16 | XMS_ITS | Encounter Summary ---
Author Organization Pending Sale To [facility] Address [facility] [place] [address] Care Team Providers Care Merchandise Stocker Name Role Phone AlfredoCarroll allison Primary Care Provider [phone] Reason for Visit * Reason Comments Arteriovenous Fistula s/p right brachio axillary graft Encounter Details Date Type Department Care Team (Late st Contact Info) Description 12/29/2018 10:15 AM EDT Office [place] [phone] Anand Mallory MD [facility] [place] [address] ESRD (end stage renal disease) Social History [...] - Tunneled Line 07/30/2018 Walt Lin MD [facility] INTERVENTIONL RAD ??? IR DIALYSIS ACCESS - TUNNELED LINE 08/30/2018 IR Dialysis Access - Tunneled Line 08/30/2018 Erwin Simon APRN [facility] INTERVENTIONL RAD ??? KIDNEY TRANSPLANT KIDNEY TRANSPLANT / RECIPIENT/LT Procedure Date: 11/26/2002 ??? PRO CREAT AV FISTULA, NON-AUTOGENOUS GRAFT Right 12/13/2018 PLACEMENT, AV HEMODIALYSIS GRAFT, SYNTHETIC GRAFT, UPPER EXTREMITY (WRVU 12.03) performed by Mary Garay MD at [facility] MAIN OR ? ? PRO DEBRIDEMENT SUBCUTANEOUS TISSUE 20 SQCM/< Left 02/20/2016 DEBRIDEMENT SKIN AND SUBCU, HEAD/NECK performed by Miguel Angel Moreno MD at [facility] MAIN OR ??? PRO DECOMPRESS FOREARM, BRACH ART EXPLOR Left 04/06/2018 FASCIOTOMY, FOREARM, WITH BRACHIAL ARTERY EXPLORATION (WRVU 8.41) [facility] OR ??? PRO DIRECT REPAIR RUPTURED ANEURYSM, AXILLO-BRACHIAL ARM INCIS Left 04/06/2018 @REPAIR, RUPTURED AXILLARY OR BRACHIAL ARTERY ANEURYSM BY ARM INCISION (WRVU *) performed by Lida Peter MD at [facility] MAIN OR ??? PRO EXC PAROTD, TOTAL, UNILAT RAD NECK Left 02/05/2016 @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, TOTAL, WITH UNILATERAL RADICAL NECK DISSECTION performed by Miguel Angel Moreno MD at [facility] MAIN OR ??? PRO EXC SKIN MALIG 3.1-4CM FACE, FACIAL Left 02/05/2016 EXC MALIGNANT LESION, 3.1 TO 4.0CM, FACE performed by Miguel Angel Moreno MD at [facility] OR ? ? PRO EXC SKIN MALIG >4CM TRUNK, ARM, LEG 04/19/2012 EXC MALIGNANT LESION, MICHAEL > 4.0CM, TRUNK performed by SABRINA SANCHEZ at [facility] OR ??? PRO LAP, RADICAL NEPHRECTOMY Left 05/31/2017 @LAPAROSCOPY, RADICAL NEPHRECTOMY (WRVU 25.06) performed by Jax Mills MD at [facility] MAIN OR ??? PRO LIGATN ANGIOACCESS AV FISTULA Left 04/19/2018 LIGATION OR BANDING OF HEMODIALYSIS FISTULA OR GRAFT UPPER EXTREMITY (WRVU 6.25) performed by Odalis Elias MD at [facility] MAIN OR ??? PRO NEGATIVE PRESSURE WOUND THERAPY, LESS THAN OR EQUAL TO 50 SQCM Left 04/19/2018 DRESSING CHANGE (VAC ASSISTED) UP TO 50SQ.CM (WRVU 0.55) performed by Odalis Elias MD [facility] MAIN OR ??? PRO REBL VES GRAFT, UP EXTREM Left 04/06/2018 REPAIR BLOOD VESSEL WITH GRAFT OTHER THAN VEIN, UPPER EXTREMITY (WRVU 15.83) performed by Lida Peter MD at [facility] MAIN OR ??? PRO RELIEVE PRESSURE ON NERVE(S) Left 04/06/2018 (MSURG) CARPAL TUNNEL (WRVU 4.82) performed by Silviano Sparks MD at [facility] OR ??? PRO REPAIR INTERMEDIATE S/A/T/E 2.6-7.5 CM 04/19/2012 REPAIR INTERMEDIATE WOUND, (NO HANDS OR FEET) 2.6 TO 7.5CM, UPPER EXTREMITY performed by SABRINA SANCHEZ at [facility] MAIN OR ? ? PRO REPAIR INTERMEDIATE S/A/T/E > 30.0 CM Left 04/14/2018 REPAIR INTERMEDIATE WOUND, (NO HANDS OR FEET) >30.0CM, UPPER EXTREMITY (WRVU 5) performed by Yimi Easton MD at [facility] MAIN OR ??? PRO REVISE MEDIAN N/CARPAL TUNNEL SURG Left 04/06/2018 MEDIAN NERVE DECOMPRESSION (CARPAL TUNNEL RELEASE) (WRVU 4.97) performed by Lida Peter MD [facility] MAIN OR ? ? PRO SPLIT GRFT TRUNK, ARM, LEG <100SQCM Left 04/26/2018 SPLIT THICK SKIN GRAFT,100 SQ CM OR LESS, ARMS (WRVU 9.9) performed by Silviano Sparks MD at [facility] MAIN OR ? ? PRO SPLIT GRFT, HEAD, FAC, HAND, FEET <100SQCM N/A 02/20/2016 SPLIT THICKNESS SKIN SPLIT GRAFT,100SQ CM OR LESS, NECK performed by Miguel Angel Moreno MD at [facility] MAIN OR ??? PRO SPLIT GRFT, TRUNK, ARM, LEG EA 100SQCM N/A 04/26/2018 EA.ADDITIONAL 100SQ.CM STSG (WRVU 1.72) performed by Silviano Sparks MD at [facility] MAIN OR ??? PRO UPPER GI ENDOSCOPY, BIOPSY N/A 05/13/2017 EGD WITH BIOPSY (WRVU 2.49) performed by Aditya Barrera MD at [facility] ENDOSCOPY ??? PRO VASCULAR SURGERY PROCEDURE UNLIST Left 11/20/2015 LIGATION\REPAIR AV FISTULA performed by Camilo Ireland MD at [facility] MAIN OR ??? PRO VASCULAR SURGERY PROCEDURE UNLIST Left 11/20/2015 EXCISION VEIN FROM HAND performed by Camilo Ireland MD at [facility] MAIN OR ??? US RENAL TRANSPLANT BIOPSY 12/31/2010 ??? US RENAL TRANSPLANT RIGHT Right 06/04/2018 US Renal Transplant Right 06/04/2018 [facility] RAD ULTRASOUND Social Hx: Social History Tobacco [...] disease documented in this encounter Care Teams Merchandise Stocker Relationship Specialty Start Date End Date Carroll Fuentes DO [address] [place] [address] PCP - General 09/23/11 10/20/22 documented as of this encounter
--- OUTSIDE RECORDS SUMMARY | 2024-05-23 13:16 | XMS_ITS | Encounter Summary ---
Author Organization [facility] Address [facility] [place] [address] Care Team Providers Care Eap Counselor Name Role Phone AlfredoCarroll allison DO Primary Care Provider [phone] Encounter Details Date Type Department Care Team (Late st Contact Info) Description 03/18/2019 Ancillary Procedure Radiology Library at [facility] [place] [phone] Wilfredo Abdi MD [facility] [place] [address] Social History Tobacco Use Types Packs/Day Years [...] CT Head (03/18/2019 12:00 AM EDT) Narrative [facility] - 03/19/2019 10:36 PM EDT This exam is auto-finalizing. It's purpose is for storage only. Wilfredo Abdi MD IMG FILM LIBRARY ORD ERABLES [place], [place] documented in this encounter Visit Diagnoses Not on filedocumented in this encounter Care Teams Eap Counselor Relationship Specialty Start Date End Date Carroll Fuentes DO [address] [place] [address] [address] [place] [address] PCP - General 09/23/11 10/20/22 documented as of this encounter
--- OUTSIDE RECORDS SUMMARY | 2024-05-23 13:16 | XMS_ITS | Encounter Summary ---
Author Organization [facility] Address [facility] [place] [address] Care Team Providers Care Physician Compensation Analyst Name Role Phone Carroll Fuentes DO Primary Care Provider Encounter Details Date Type Department Care Team (Late st Contact Info) Description 12/17/2018 Ancillary Procedure Radiology Library at [facility] [place] [address] Carroll Fuentes DO [address] [place], [place] [address] Social History Tobacco Use Types Packs/Day Years [...] CT Head (12/17/2018 12:00 AM EDT) Narrative [facility] - 12/19/2018 11:24 AM EDT This exam is auto-finalizing. It's purpose is for storage only. Carroll Fuentes DO [facility] FILM LIBRARY ORD ERABLES [place], [place] documented in this encounter Visit Diagnoses Not on filedocumented in this encounter Care Teams Physician Compensation Analyst Relationship Specialty Start Date End Date Carroll Fuentes DO [address] [place] [address] [address] [place] [address] PCP - General 09/23/11 10/20/22 documented as of this encounter
--- OUTSIDE RECORDS SUMMARY | 2024-05-23 13:16 | XMS_ITS | Encounter Summary ---
Author Organization [facility] Address [facility] [place] [address] Care Team Providers Care Air Pollution Analyst Name Role Phone AlfredoCarroll allison Primary Care Provider [phone] Reason for Referral * Consultation (Routine) - Closed Specialty Diagnoses / Procedures Referred By Shashi ko Referred To Contact Vascular Surgery Diagnoses ESRD (end stage renal disease) Trever Boyd MD [facility] [place] [address] [facility] [address] [place] [address] Referral ID Status Reason Start Date Expiration Date V isits Requested Visits Authorized [id number] Closed Specialty Service Requested 01/24/2021 01/24/2022 1 1 Encounter Details Date Type Department Care Team (Late st Contact Info) Description 01/24/2021 Orders Only [place] [address] Trever Boyd MD [facility] [place] [address] ESRD (end stage renal disease) [...] disease documented in this encounter Care Teams Air Pollution Analyst Relationship Specialty Start Date End Date Carroll Fuentes DO [address] [place] [address] [address] [place] [address] PCP - General 09/23/11 10/20/22 documented as of this encounter
--- OUTSIDE RECORDS SUMMARY | 2024-05-23 13:16 | XMS_ITS | Encounter Summary ---
Author Organization [facility] [address] Care Team Providers Care Education Site Manager Name Role Phone AlfredoCarroll allison Primary Care Provider Encounter Details Date Type Department Care Team (Late st Contact Info) Description 11/22/2019 Telephone Solid [place] [address] Michell Roque APRN [facility] [place] [address] Social History Tobacco Use Types Packs/Day Years [...] on filedocumented in this encounter Care Teams Education Site Manager Relationship Specialty Start Date End Date Carroll Fuentes DO [address] [facility] [address] [place] [address] PCP - General 09/23/11 10/20/22 documented as of this encounter
--- OUTSIDE RECORDS SUMMARY | 2024-05-23 13:16 | XMS_ITS | Encounter Summary ---
Author Organization [facility] [place] [address] Care Team Providers Care Mash Filter Press Operator Name Role Phone Carroll Fuentes DO Primary Care Provider [phone] Reason for Referral * Diagnostic Test (Routine) - Closed Specialty Diagnoses / Procedures Referred By Shashi ko Referred To Contact Radiology Diagnoses ESRD (end stage renal disease) Procedures IR Dialysis Access - Tunneled Line Carroll Baires MD [facility] [place] [address] [place] [address] Referral ID Status Reason Start Date Expiration Date V isits Requested Visits Authorized [id number] Closed Specialty Service Requested 01/21/2021 07/24/2022 1 1 Reason for Visit * Diagnostic Test (Routine) - Closed Specialty Diagnoses / Procedures Referred By Shashi ko Referred To Contact Radiology Diagnoses ESRD (end stage renal disease) Procedures IR Dialysis Access - Tunneled Line Carroll Baires MD [facility] [place] [address] [facility] [place] [address] Referral ID Status Reason Start Date Expiration Date V isits Requested Visits Authorized [id number] Closed Specialty Service Requested 01/21/2021 07/24/2022 1 1 Encounter Details Date Type Department Care Team (Latest Contact Info) Description 01/23/2021 6:33 AM EDT - 01/23/2021 11:59 PM EDT Hospital [place] [address] Carroll Baires MD [facility] [place] [address] Ene Paredes RN ESRD (end stage renal [...] Swartz RN - 01/23/2021 7:54 AM EDT [facility] Vascular/Interventional Radiology DISCHARGE INSTRUCTIONS FOR TUNNELED [...] is during regular working hours, please call [phone]. If it is after 5 pm or a weekend or holiday, call [phone] and ask for the [place] program professional for Interventional Radiology. You have received medication [...] of : 1960 AGE: 60 y.o. Address: [address] [place] [address] (home) Mobile: Telephone Information: Referring Provider: Carroll Baires REASON FOR VISIT: Order Questions Answers Where will study be performed? [facility] Radiology [120] Is the patient on [...] AV Fistula Evaluations 11/30/2019 Sabrina Velez MD [facility] INTERVENTIONL RAD ??? IR DIALYSIS ACCESS - AV FISTULA EVALUATIONS 01/07/2021 IR Dialysis Access - AV Fistula Evaluations 01/07/2021 Sabrina Velez MD [facility] INTERVENTIONL RAD ??? IR DIALYSIS ACCESS - TUNNELED LINE 07/30/2018 IR Dialysis Access - Tunneled Line 07/30/2018 Walt Lin MD [facility] INTERVENTIONL RAD ??? IR DIALYSIS ACCESS - TUNNELED LINE 08/30/2018 IR Dialysis Access - Tunneled Line 08/30/2018 Erwin Simon APRN [facility] INTERVENTIONL RAD ??? IR DIALYSIS ACCESS - TUNNELED LINE 12/27/2020 IR Dialysis Access - Tunneled Line 12/27/2020 Kanu Apple MD [facility] INTERVENTIONL RAD ??? KIDNEY TRANSPLANT KIDNEY TRANSPLANT / RECIPIENT/LT Procedure Date: 11/26/2002 ??? PRO CREAT AV FISTULA, NON-AUTOGENOUS GRAFT Right 12/13/2018 PLACEMENT, AV HEMODIALYSIS GRAFT, SYNTHETIC GRAFT, UPPER EXTREMITY (WRVU 12.03) performed by Mary Garay MD at [facility] MAIN OR ? ? PRO DEBRIDEMENT SUBCUTANEOUS TISSUE 20 SQCM/< Left 02/20/2016 DEBRIDEMENT SKIN AND SUBCU, HEAD/NECK performed by Miguel Angel Moreno MD at [facility] MAIN OR ??? PRO DECOMPRESS FOREARM, BRACH ART EXPLOR Left 04/06/2018 FASCIOTOMY, FOREARM, WITH BRACHIAL ARTERY EXPLORATION (WRVU 8.41) performed by Lida Peter MDat [facility] OR ??? PRO DIRECT REPAIR RUPTURED ANEURYSM, AXILLO-BRACHIAL ARM INCIS Left 04/06/2018 @REPAIR, RUPTURED AXILLARY OR BRACHIAL ARTERY ANEURYSM BY ARM INCISION (WRVU *) performed by Lida Peter MD at [facility] OR ??? PRO EXC PAROTD, TOTAL, UNILAT RAD NECK Left 02/05/2016 @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, TOTAL, WITH UNILATERAL RADICAL NECK DISSECTION performed by Miguel Angel Moreno MD at [facility] OR ??? PRO EXC SKIN MALIG 3.1-4CM FACE, FACIAL Left 02/05/2016 EXC MALIGNANT LESION, 3.1 TO 4.0CM, FACE performed by Miguel Angel Moreno MD at [facility] OR ? ? PRO EXC SKIN MALIG >4CM TRUNK, ARM, LEG 04/19/2012 EXC MALIGNANT LESION, MICHAEL > 4.0CM, TRUNK performed by SABRINA SANCHEZ at [facility] OR ??? PRO LAP, RADICAL NEPHRECTOMY Left 05/31/2017 @LAPAROSCOPY, RADICAL NEPHRECTOMY (WRVU 25.06) performed by Jax Mills MD at [facility] OR ??? PRO LIGATN ANGIOACCESS AV FISTULA Left 04/19/2018 LIGATION OR BANDING OF HEMODIALYSIS FISTULA OR GRAFT UPPER EXTREMITY (WRVU 6.25) performed by Odalis Elias MD at [facility] OR ??? PRO NEGATIVE PRESSURE WOUND THERAPY, LESS THAN OR EQUAL TO 50 SQCM Left 04/19/2018 DRESSING CHANGE (VAC ASSISTED) UP TO 50SQ.CM (WRVU 0.55) performed by Odalis Elias MD [facility] OR ??? PRO REBL VES GRAFT, UP EXTREM Left 04/06/2018 REPAIR BLOOD VESSEL WITH GRAFT OTHER THAN VEIN, UPPER EXTREMITY (WRVU 15.83) performed by Lida Peter MD at [facility] OR ??? PRO RELIEVE PRESSURE ON NERVE(S) Left 04/06/2018 (MSURG) CARPAL TUNNEL (WRVU 4.82) performed by Silviano Sparks MD at [facility] MAIN OR ??? PRO REPAIR INTERMEDIATE [...] Right 06/04/[address] [facility] RAD ULTRASOUND Date/Procedure Meds given/comments 08/30/18 [...] Questions Answers Where will study be performed? [facility] Radiology [120] Is the patient on [...] a right upper extremity fistulagram, but without yazidism of outflow channel despite 16 mm CONCRETE PIPE MAKER. He remains catheter dependent. Tolerates well with [...] ml/min N18.4 ??? 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 rat exterminator current use of immunosuppressive drug Z79.899 [...] AV Fistula Evaluations 11/30/2019 Sabrina Velez MD [facility] INTERVENTIONL RAD ??? IR DIALYSIS ACCESS - AV FISTULA EVALUATIONS 01/07/2021 IR Dialysis Access - AV Fistula Evaluations 01/07/2021 Sabrina Velez MD [facility] INTERVENTIONL RAD ??? IR DIALYSIS ACCESS - TUNNELED LINE 07/30/2018 IR Dialysis Access - Tunneled Line 07/30/2018 Walt Lin MD [facility] INTERVENTIONL RAD ??? IR DIALYSIS ACCESS - TUNNELED LINE 08/30/2018 IR Dialysis Access - Tunneled Line 08/30/2018 Erwin Simon, [facility]R[employer] INTERVENTIONL RAD ??? IR DIALYSIS ACCESS - TUNNELED LINE 12/27/2020 IR Dialysis Access - Tunneled Line 12/27/2020 Kanu Apple MD [facility] INTERVENTIONL RAD ??? KIDNEY TRANSPLANT KIDNEY TRANSPLANT / RECIPIENT/LT Procedure Date: 11/26/2002 ??? PRO CREAT AV FISTULA, NON-AUTOGENOUS GRAFT Right 12/13/2018 PLACEMENT, AV HEMODIALYSIS GRAFT, SYNTHETIC GRAFT, UPPER EXTREMITY (WRVU 12.03) performed by Mary Garay MD at [facility] MAIN OR ? ? PRO DEBRIDEMENT SUBCUTANEOUS TISSUE 20 SQCM/< Left 02/20/2016 DEBRIDEMENT SKIN AND SUBCU, HEAD/NECK performed by Miguel Angel Moreno MD at [facility] MAIN OR ??? PRO DECOMPRESS FOREARM, BRACH ART EXPLOR Left 04/06/2018 FASCIOTOMY, FOREARM, WITH BRACHIAL ARTERY EXPLORATION (WRVU 8.41) [facility] MAIN OR ??? PRO DIRECT REPAIR RUPTURED ANEURYSM, AXILLO-BRACHIAL ARM INCIS Left 04/06/2018 @REPAIR, RUPTURED AXILLARY OR BRACHIAL ARTERY ANEURYSM BY ARM INCISION (WRVU *) performed by Lida Peter MD at [facility] OR ??? PRO EXC PAROTD, TOTAL, UNILAT RAD NECK Left 02/05/2016 @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, TOTAL, WITH UNILATERAL RADICAL NECK DISSECTION performed by Miguel Angel Moreno MD at [facility] OR ??? PRO EXC SKIN MALIG 3.1-4CM FACE, FACIAL Left 02/05/2016 EXC MALIGNANT LESION, 3.1 TO 4.0CM, FACE performed by Miguel Angel Moreno MD at [facility] OR ? ? PRO EXC SKIN MALIG >4CM TRUNK, ARM, LEG 04/19/2012 EXC MALIGNANT LESION, MICHAEL > 4.0CM, TRUNK performed by SABRINA SANCHEZ at [facility] OR ??? PRO LAP, RADICAL NEPHRECTOMY Left 05/31/2017 @LAPAROSCOPY, RADICAL NEPHRECTOMY (WRVU 25.06) performed by Jax Mills MD at [facility] OR ??? PRO LIGATN ANGIOACCESS AV [...] Elias MD [facility] MAIN OR ??? PRO REBL VES GRAFT, UP EXTREM Left 04/06/2018 REPAIR BLOOD VESSEL WITH GRAFT OTHER THAN VEIN, UPPER EXTREMITY (WRVU 15.83) performed by Lida Peter MD at [facility] OR ??? PRO RELIEVE PRESSURE ON NERVE(S) Left 04/06/2018 (MSURG) CARPAL TUNNEL (WRVU 4.82) performed by Silviano Sparks MD at [facility] OR ??? PRO REPAIR INTERMEDIATE S/A/T/E [...] 06/04/[address] [facility] RAD ULTRASOUND Social history and habits: [...] removed; a 8 mm x 4 cm CONCRETE PIPE MAKER balloon was advanced and inflated along the [...] 1. No SVC stenosis on venography 2. CONCRETE PIPE MAKER balloon disruption of any potential catheter-related sheath [...] by the IR Nurse. Carroll Baires MD [facility] IR ORDERABLES documented in this encounter Visit [...] mg documented in this encounter Care Teams Mash Filter Press Operator Relationship Specialty Start Date End Date Alfredo, Carroll, DO [address] [place] [address] PCP - General 09/23/11 10/20/22 documented as of this encounter
--- OUTSIDE RECORDS SUMMARY | 2024-05-23 13:16 | XMS_ITS | Encounter Summary ---
Author Organization [facility] Address [facility] [place] [address] Care Team Providers Care Application Technical Designer Name Role Phone AlfredoCarroll geiger Primary Care Provider [phone] Reason for Visit * Consultation (Routine) - Closed Specialty Diagnoses / Procedures Referred By Shashi ko Referred To Contact Vascular Surgery Diagnoses ESRD (end stage renal disease) Trever Boyd MD [facility] [place] [address] [facility] [address] [place] [address] Referral ID Status Reason Start Date Expiration Date V isits Requested Visits Authorized [id number] Closed Specialty Service Requested 01/24/2021 01/24/2022 1 1 Encounter Details Date Type Department Care Team (Late st Contact Info) Description 02/20/2021 9:30 AM EDT Office [place] [address] Odalis Elias MD [facility] [place] [address] ESRD (end stage renal disease) [...] N18.4 ??? 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 terminal block assembler current use of immunosuppressive drug Z79.899 ??? [...] - Denies Functional Status/Social Hx: Lives in alf, Drives Car, Denies Tobacco Use Family Hx: [...] documented in this encounter Care Teams Application Technical Designer Relationship Specialty Start Date End Date Carroll Fuentes DO [address] [place] [address] PCP - General 09/23/11 10/20/22 documented as of this encounter
--- OUTSIDE RECORDS SUMMARY | 2024-05-23 13:16 | XMS_ITS | Encounter Summary ---
Author Organization [facility] Address [facility] [place] [address] Care Team Providers Care Regional Program Manager Name Role Phone AlfredoCarroll allison Primary Care Provider [phone] Reason for Referral * Consultation (Routine) - Closed Specialty Diagnoses / Procedures Referred By Shashi ko Referred To Contact Transplant Diagnoses ESRD (end stage renal disease) Procedures TXP Trever Brizuela MD [facility] [address] [facility] [place] [address] Referral ID Status Reason Start Date Expiration Date V isits Requested Visits Authorized [id number] Closed Consult, Test & Treat 11/07/2019 11/06/2020 1 1 Encounter Details Date Type Department Care Team (Late st Contact Info) Description 11/07/2019 Orders Only [place] [address] [facility] [address] ESRD (end stage renal disease) Social History [...] disease documented in this encounter Care Teams Regional Program Manager Relationship Specialty Start Date End Date Carroll Fuentes DO [address] [place] [address] PCP - General 09/23/11 10/20/22 documented as of this encounter
--- OUTSIDE RECORDS SUMMARY | 2024-05-23 13:16 | XMS_ITS | Encounter Summary ---
Author Organization [facility] Address [facility] [place] [address] Care Team Providers Care Platen Press Operator Name Role Phone Carroll Fuentes DO Primary Care Provider [phone] Encounter Details Date Type Department Care Team (Late st Contact Info) Description 01/10/2019 Ancillary Procedure Radiology Library at [facility] [place] [address] Wilfredo Abdi MD [facility] [address] Social History Tobacco Use Types Packs/Day Years [...] CT Head (01/10/2019 12:00 AM EDT) Narrative [facility] - 01/13/2019 10:29 AM EDT This exam is auto-finalizing. It's purpose is for storage only. Wilfredo Abdi MD IMG FILM LIBRARY ORD ERABLES [place], [place] documented in this encounter Visit Diagnoses Not on filedocumented in this encounter Care Teams Platen Press Operator Relationship Specialty Start Date End Date Carroll Fuentes DO [address] [place] [address] [address] [place] [address] PCP - General 09/23/11 10/20/22 documented as of this encounter
--- OUTSIDE RECORDS SUMMARY | 2024-05-23 13:16 | XMS_ITS | Encounter Summary ---
Author Organization [facility] Address [facility] [place] [address] Care Team Providers Care Client Architect Name Role Phone Carroll Fuentes DO Primary Care Provider Encounter Details Date Type Department Care Team (Late st Contact Info) Description 09/18/2019 11:00 AM EDT Ancillary Procedure Radiology Library [place] [address] Carroll Fuentes DO [address] [place], [place] [address] Social History Tobacco Use Types Packs/Day Years [...] IMG FILM LIBRARY ORD ERABLES MIGUEL ÁNGEL [place], [place] documented in this encounter Visit Diagnoses Not on filedocumented in this encounter Care Teams Client Architect Relationship Specialty Start Date End Date Carroll Fuentes DO [address] [place] [address] PCP - General 09/23/11 10/20/22 documented as of this encounter
--- OUTSIDE RECORDS SUMMARY | 2024-05-23 13:16 | XMS_ITS | Encounter Summary ---
Author Organization [facility] [place] [address] Care Team Providers Care Tandem Mill Sticker Name Role Phone Carroll Fuentes DO Primary Care Provider Encounter Details Date Type Department Care Team (Late st Contact Info) Description 10/12/2019 Abstract [place] [address] Anup Hawkins MD [facility] [place] [address] Social History Tobacco Use Types Packs/Day Years [...] on filedocumented in this encounter Care Teams Tandem Mill Sticker Relationship Specialty Start Date End Date Carroll Fuentes DO [address] [place] [address] PCP - General 09/23/11 10/20/22 documented as of this encounter
--- OUTSIDE RECORDS SUMMARY | 2024-05-23 13:16 | XMS_ITS | Encounter Summary ---
Author Organization [facility] [place] [address] Care Team Providers Care Residential Remodeling Subcontractor Name Role Phone AlfredoCarroll allison Primary Care Provider [phone] Encounter Details Date Type Department Care Team (Late st Contact Info) Description 12/18/2019 Telephone [place] [address] Michell Roque, [employer]PET [employer] [facility] [place] [address] Social History Tobacco Use Types Packs/Day Years [...] spoke with Dir Esthela of Nursing, at [facility] in [place], [place]. She was surprised that we would [...] on filedocumented in this encounter Care Teams Residential Remodeling Subcontractor Relationship Specialty Start Date End Date Carroll Fuentes DO [address] [place] [address] [address] [facility] [address] [place] [address] PCP - General 09/23/11 10/20/22 documented as of this encounter
--- OUTSIDE RECORDS SUMMARY | 2024-05-23 13:17 | XMS_ITS | Encounter Summary ---
Author Organization [facility] Address [facility] [place] [address] Care Team Providers Care Fiber Analyst Name Role Phone Carroll Fuentes DO Primary Care Provider [phone] Encounter Details Date Type Department Care Team (Late st Contact Info) Description 11/29/2018 11:30 AM EDT Office Visit [place] [address] Status post kidney transplant Social History Tobacco [...] Social Work assisted Adama/Avni in applying for intermediate care Medicaid as he has no insurance. Adama has since been approved for [place] Medicaid and currently has [place] Medicaid. Adama has also been approved for disability for his kidney disease in the amount of $1,024.00. Avni recently got a letter saying that [place] Medicaid would cover the cost of Adama's [...] Avni showed worker bills from the facility ([facility]) where Adama was getting PT [...] have in their account to qualify for Medicaid/[place] care Medicaid) Worker explained that with intermediate Medicaid there is a financial as well [...] suggest es that they follow up with [place] [facility] for clarification. Avni asked about [...] deferred to eit her Medicaid or the [place] [facility] for clarification on this question [...] transplant documented in this encounter Care Teams Fiber Analyst Relationship Specialty Start Date End Date Carroll Fuentes DO [address] [place] [address] PCP - General 09/23/11 10/20/22 documented as of this encounter
--- OUTSIDE RECORDS SUMMARY | 2024-05-23 13:17 | XMS_ITS | Encounter Summary ---
[place] [address] Care Team Providers Care Casing Tier Name Role Phone Alfredo, Carroll MIX Primary Care Provider [phone] Reason for Visit * Auth/Cert Specialty Diagnoses / Procedures Referred By Shashi ko Referred To Contact Diagnoses ESRD on dialysis Procedures PRO CREAT AV FISTULA, NON-AUTOGENOUS GRAFT PLACEMENT, AV HEMODIALYSIS GRAFT, SYNTHETIC GRAFT, UPPER EXTREMITY (WRVU 12.03) Referral ID Status Reason Start Date Expiration Date Visits Re quested Visits Authorized [id number] 1 1 Encounter Details Date Type Department Care Team (Latest Contact Info) Description 12/13/2018 8:20 AM EDT Laboratory Appointment Lab [address] [place] [id number] CKD (chronic kidney disease) stage 4, GFR [...] EDT) Potassium 5.8(H) 3.5 - 5.0 mmol/L [facility] [...] In Lab Kurt Mullins MD CHEMISTRY ORDERABLES [facility] [place] [address] documented in this encounter Visit Diagnoses Diagnosis CKD (chronic kidney disease) stage 4, GFR 15-29 ml/min Chronic kidney disease, Stage IV (severe) Acute renal failure, unspecified acute renal failure type documented in this encounter Care Teams Casing Tier Relationship Specialty Start Date End Date Carroll Fuentes DO [address] [place] [address] PCP - General 09/23/11 10/20/22 documented as of this encounter
--- OUTSIDE RECORDS SUMMARY | 2024-05-23 13:17 | XMS_ITS | Encounter Summary ---
Author Organization [facility] Address [facility] [place] [address] Care Team Providers Care Library Director Name Role Phone AlfredoCarroll allison Primary Care Provider [phone] Reason for Referral * Diagnostic Test (Routine) - Closed Specialty Diagnoses / Procedures Referred By Shashi ko Referred To Contact Radiology Diagnoses ESRD (end stage renal disease) Procedures IR Dialysis Access - Tunneled Line Munira Whiteside MD [facility] [place] [address] [facility] [address] Referral ID Status Reason Start Date Expiration Date V isits Requested Visits Authorized [id number] Closed Specialty Service Requested 08/23/2018 08/23/2019 1 1 Encounter Details Date Type Department Care Team (Late st Contact Info) Description 08/23/2018 Orders Only [place] [address] Munira Whiteside MD [facility] [place] [address] ESRD (end stage renal disease) [...] c/b tacrolimus toxicity, 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 DC placed [...] disease documented in this encounter Care Teams Library Director Relationship Specialty Start Date End Date Carroll Fuentes DO [address] [facility] [address] [place] [address] PCP - General 09/23/11 10/20/22 documented as of this encounter
--- OUTSIDE RECORDS SUMMARY | 2024-05-23 13:17 | XMS_ITS | Encounter Summary ---
[place] [address] Care Team Providers Care Radius Grinder Name Role Phone Carroll Fuentes DO Primary Care Provider [phone] Encounter Details Date Type Department Care Team (Late st Contact Info) Description 09/07/2018 Orders [place] [address] Henna Cerrato RN SDH (subdural hematoma) Social [...] hemorrhage documented in this encounter Care Teams Radius Grinder Relationship Specialty Start Date End Date Carroll Fuentes DO [address] [place] [address] PCP - General 09/23/11 10/20/22 documented as of this encounter
--- OUTSIDE RECORDS SUMMARY | 2024-05-23 13:17 | XMS_ITS | Encounter Summary ---
Author Organization [facility] Address [facility] [place] [address] Care Team Providers Care Reel Blade Bender Furnace Tender Name Role Phone AlfredoCarroll allison Primary Care Provider [phone] Encounter Details Date Type Department Care Team (Late st Contact Info) Description 11/30/2018 Telephone [place] [address] Tessa Flores MSW [facility] [place] [address] Social History Tobacco Use Types Packs/Day Years [...] on filedocumented in this encounter Care Teams Reel Blade Bender Furnace Tender Relationship Specialty Start Date End Date Carrlol Fuentes DO [address] [place] [address] PCP - General 09/23/11 10/20/22 documented as of this encounter
--- OUTSIDE RECORDS SUMMARY | 2024-05-23 13:17 | XMS_ITS | Encounter Summary ---
Author Organization [facility] [place] [address] Care Team Providers Care Senior Program Manager Name Role Phone AlfredoCarroll allison Primary Care Provider [phone] Encounter Details Date Type Department Care Team (Late st Contact Info) Description 08/22/2018 Telephone [place] [address] Anabella Norwood Social History Tobacco Use Types [...] Norwood - 08/22/2018 12:43 PM EST Called [facility], [facility], confirmed appt details with Transportation Appt [...] Lugo PA to Me ??? Leb Neurosurgery Chef Assistant ?? 10:31 AM Follow up in [address] Juventino Zhu documented in this encounter Plan of Treatment Not on file documented as of this encounter Visit Diagnoses Not on filedocumented in this encounter Care Teams Senior Program Manager Relationship Specialty Start Date End Date Carroll Fuentes DO [address] [place] [address] PCP - General 09/23/11 10/20/22 documented as of this encounter
--- OUTSIDE RECORDS SUMMARY | 2024-05-23 13:17 | XMS_ITS | Encounter Summary ---
Author Organization [facility] Address [facility] [place] [address] Care Team Providers Care Server Assistant Name Role Phone AlfredoCarroll allison Primary Care Provider [phone] Encounter Details Date Type Department Care Team (Late st Contact Info) Description 09/29/2018 Orders [place] [address] Anand Lugo PA [facility] [place] [address] SDH (subdural hematoma) Social History Tobacco Use [...] hemorrhage documented in this encounter Care Teams Server Assistant Relationship Specialty Start Date End Date Carroll Fuentes DO [address] [place] [address] PCP - General 09/23/11 10/20/22 documented as of this encounter
--- OUTSIDE RECORDS SUMMARY | 2024-05-23 13:17 | XMS_ITS | Encounter Summary ---
[place] [address] Care Team Providers Care Apple Picking Supervisor Name Role Phone Carroll Fuentes DO Primary Care Provider Encounter Details Date Type Department Care Team (Late st Contact Info) Description 11/08/2018 Orders Only Neph[place] [address] Sagrario Hodges, RN Social History Tobacco Use [...] on filedocumented in this encounter Care Teams Apple Picking Supervisor Relationship Specialty Start Date End Date Carroll Fuentes DO [address] [place] [address] PCP - General 09/23/11 10/20/22 documented as of this encounter
--- OUTSIDE RECORDS SUMMARY | 2024-05-23 13:17 | XMS_ITS | Encounter Summary ---
Author Organization [facility] [place] [address] Care Team Providers Care Electrical Test Engineer Name Role Phone AlfredoCarroll geiger Primary Care Provider Reason for Visit * Auth/Cert Specialty Diagnoses / Procedures Referred By Shashi ko Referred To Contact Diagnoses ESRD on dialysis Procedures PRO CREAT AV FISTULA, NON-AUTOGENOUS GRAFT PLACEMENT, AV HEMODIALYSIS GRAFT, SYNTHETIC GRAFT, UPPER EXTREMITY (WRVU 12.03) Referral ID Status Reason Start Date Expiration Date Visits Re quested Visits Authorized [id number] 1 1 Encounter Details Date Type Department Care Team (Late st Contact Info) Description 12/13/2018 10:00 AM EDT - 12/13/2018 1:17 PM EDT Surgery [place] [id number] Anna Shah MD [address] [place] [id number] PLACEMENT, AV HEMODIALYSIS GRAFT, SYNTHETIC GRAFT, UPPER [...] ml/min ??? 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 termite control representative current use of immunosuppressive drug ??? H/O [...] Pt will resume his regular dialysis at [facility] on Wednesday12/16/2018 to resume normal schedule. Most [...] Studies: none Discharge Conditions/Prognosis: Good Discharge to: [facility] care facility in [facility]. Discharge Medications: Your Medications New Medications [...] For any problems or questions please call [phone] For issues on weeknights after 5pm and weekends please call [phone] and ask for the Vascular Fellow pilot control operator. YEIMY Fallon, tape fastener machine operator Nurse Clinician General Instructions None Future Appointments and Orders Future Orders Complete By Expires AVF/Established Access Evaluation [VAS61 Custom] 01/12/2019 03/15/2019 Process Instructions: There is no in-house vascular manager labor relations available on weeknights (5pm-8am), weekends, or holidays. IF THIS IS A REQUEST FOR AN EMERGENT STUDY DURING THOSE HOURS, please have the senior provider responsible for the patient page the Vascular Surgery Fellow/Senior Resident pilot control operator to discuss options. Scheduling Instructions: Questions: Laterality: Right Which extremity?: Upper Indication for study/signs & symptoms: s/p Right brachioaxillary graft with 7 mm - 4 mm taperedAccuseal (12/13/18) Question to be answered: ?maturation At which [facility] location will this be performed?: [facility] AVF/Established Access Evaluation [VAS61 Custom] 01/13/2019 12/15/2019 Process Instructions: There is no in-house vascular manager labor relations available on weeknights (5pm-8am), weekends, or holidays. IF THIS IS A REQUEST FOR AN EMERGENT STUDY DURING THOSE HOURS, please have the senior provider responsible for the patient page the Vascular Surgery Fellow/Senior Resident pilot control operator to discuss options. Scheduling Instructions: Questions: Laterality: Right Which extremity?: Upper Indication for study/signs & symptoms: s/p Right brachioaxillary graft with 7 mm - 4 mm taperedAccuseal (12/13/18) Question to be answered: patency At which [facility] location will this be performed?: [facility] Discharge References/Attachments: Discharge References/Attachments None Electronically Signed By: Thelma Solitario MD 12/14/2018 documented in this encounter Discharge Instructions * Patient Instructions* Nilda Minaay RN - 12/13/2018 4:52 PM EDT Instructions [...] For any problems or questions please call [phone] For issues on weeknights after 5pm and weekends please call [phone] and ask for the Vascular Fellow pilot control operator. YEIMY Fallon, tape fastener machine operator Nurse Clinician documented in this encounter Medications [...] 12/14/2018 4:50 PM EDT Office of Care Management/Parts Counter Associate Name: Christy Ambrose Presenting Issue: Outpatient Dialysis Update Notified [facility] HD unit that patient is scheduled for discharge yesterday. The dialysis unit is ready for the patient on Wednesday at 7:45am. The patient will have a schedule of mon/wed/fri at 7:45. Plan: Discharge Summary and last acute dialysis records will be faxed to the veterans contact representative upon discharge. This office will be available to the patient, Forestry Contractor-RN and Artificial Flowers Supervisor for further assistance. Dialysis Unit Address: [address] [place] [address] \ ILDA WONG RN Parts Counter Associate * Tana Briones, JULIAN - 12/14/2018 4:22 [...] ??? 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 termite control representative current use of immunosuppressive drug Z79.899 ??? [...] 11/29/18: 84.2 kg (185 lb 9.6 oz). [place] Body Weight (IBW): [place] body weight: 73 kg (160 lb 15 [...] in July. During his July admission this promotion writer saw him and reviewed renal diet information with him. Pt reports that he currently lives in a shelter where he does not always have options [...] Transport initiated/confirmed: Spoke with Maria E from [facility] who confirmed a service parts driver will arrive to pick patient up at discharge today from the Main entrance at 4:00pm en route to home address. * Britany Stuart RN - 12/14/2018 2:15 PM EDT The patient/sales and merchandising representative has been provided a list of Home Health Agencies/DME vendors which servetheir preferred geographic area. A letter describing our affiliations was reviewed with them and they were educated about their right to choose where referrals are placed. Patient requests referral back to: [facility] for HD. Schedule is MW. Next HD s/b Wednesday. Expected date of discharge: 12/14. Referral routed to the Parts Counter Associate for matching with agency/vendor and to provide [...] ESRD admitted in [facility] s/p AVG in [facility] now hyperkalemic at 7.2. IV [...] Thank you! Angely Biswas RN Life Safety/ICU [phone] or [phone] * Padmini Ruiz RN - 12/13/2018 4:24 PM EDT CM asked by Dr. Jhonny Solitario to arrange transportation home for this pt. Pt is post operative today for: Right brachioaxillary graft with 7 mm - 4 mm tapered Accuseal. Pt lives at the [facility], a Residential care facility in [facility]. I spoke with RA Guadalupe at [facility] who informed me that pt is transported by [facility] for all appointments and dialysis . Pt is picked up for dialysis at 7:30 am. I called [facility] at . They will send a service parts driver by the name of Junito to the Main Entrance of [facility] this evening at 18:30. I will update pt's nurse Litzy and Anayeli via phone calls. Dr. Solitario aware. Padmini Ruiz RN 4 [place] Forestry Contractor Pager: [phone] * Megan Eugene RN - [...] ml/min N18.4 ??? 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 longterm current [...] education level: None Occupational History ??? 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 [...] transplant (transplant on 11/26/02). Outpatient HD at [facility]. - Access: Right IJ TDC (right [...] any questions. 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 [...] - Tunneled Line 08/30/2018 Erwin Simon APRN [facility] INTERVENTIONL RAD ??? KIDNEY TRANSPLANT KIDNEY TRANSPLANT / RECIPIENT/LT Procedure Date: 11/26/2002 ? ? PRO DEBRIDEMENT SUBCUTANEOUS TISSUE 20 SQCM/< Left 02/20/2016 DEBRIDEMENT SKIN AND SUBCU, HEAD/NECK performed by Miguel Angel Moreno MD at [facility] OR ??? PRO DECOMPRESS FOREARM, BRACH ART EXPLOR Left 04/06/2018 FASCIOTOMY, FOREARM, WITH BRACHIAL ARTERY EXPLORATION (WRVU 8.41) performed by Lida Peter MDat [facility] OR ??? PRO DIRECT REPAIR RUPTURED ANEURYSM, AXILLO-BRACHIAL ARM INCIS Left 04/06/2018 @REPAIR, RUPTURED AXILLARY OR BRACHIAL ARTERY ANEURYSM BY ARM INCISION (WRVU *) performed by Lida Peter MD at [facility] OR ??? PRO EXC PAROTD, TOTAL, UNILAT RAD NECK Left 02/05/2016 @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, TOTAL, WITH UNILATERAL RADICAL NECK DISSECTION performed by Miguel Angel Moreno MD at [facility] OR ??? PRO EXC SKIN MALIG 3.1-4CM FACE, FACIAL Left 02/05/2016 EXC MALIGNANT LESION, 3.1 TO 4.0CM, FACE performed by Miguel Angel Moreno MD at [facility] OR ? ? PRO EXC SKIN MALIG >4CM TRUNK, ARM, LEG 04/19/2012 EXC MALIGNANT LESION, MICHAEL > 4.0CM, TRUNK performed by SABRINA SANCHEZ at [facility] OR ??? PRO LAP, RADICAL NEPHRECTOMY Left 05/31/2017 @LAPAROSCOPY, RADICAL NEPHRECTOMY (WRVU 25.06) performed by Jax Mills MD at [facility] MAIN OR ??? PRO LIGATN ANGIOACCESS AV FISTULA Left 04/19/2018 LIGATION OR BANDING OF HEMODIALYSIS FISTULA OR GRAFT UPPER EXTREMITY (WRVU 6.25) performed by Odalis Elias MD at [facility] MAIN OR ??? PRO NEGATIVE [...] 15.83) performed by Lida Peter MD at [facility] OR ??? PRO RELIEVE PRESSURE ON NERVE(S) Left 04/06/2018 (MSURG) CARPAL TUNNEL (WRVU 4.82) performed by Silviano Sparks MD at [facility] OR ??? PRO REPAIR INTERMEDIATE S/A/T/E 2.6-7.5 CM 04/19/2012 REPAIR INTERMEDIATE WOUND, (NO HANDS OR FEET) 2.6 TO 7.5CM, UPPER EXTREMITY performed by SABRINA SANCHEZ at [facility] OR ? ? PRO REPAIR INTERMEDIATE S/A/T/E > 30.0 CM Left 04/14/2018 REPAIR INTERMEDIATE WOUND, (NO HANDS OR FEET) >30.0CM, UPPER EXTREMITY (WRVU 5) performed by Yimi Easton MD at [facility] OR ??? PRO REVISE [...] MD at [facility] ENDOSCOPY ??? PRO VASCULAR SURGERY PROCEDURE UNLIST Left 11/20/2015 LIGATION\REPAIR AV FISTULA performed by Camilo Ireland MD at [facility] MAIN OR ??? PRO VASCULAR SURGERY PROCEDURE UNLIST Left 11/20/2015 EXCISION VEIN FROM HAND performed by Camilo Ireland MD at [facility] MAIN OR ??? US RENAL TRANSPLANT BIOPSY 12/31/2010 ??? US RENAL TRANSPLANT RIGHT Right 06/04/2018 US Renal Transplant Right 06/04/2018 [facility] RAD ULTRASOUND Family History Problem Relation Age [...] transplant (transplant on 11/26/02). Outpatient HD at [facility]. - Access: Right IJ TDC (right [...] Shah MD - 12/13/2018 12:17 PM EDT [facility] Operative Note Patient Name: Christy Ambrose : 1960 MR#: [id number] Case Date: 12/13/2018 Date of Operation: 12/13/2018. [...] Implant Name Type Inv. Item Serial No. Stencil Cutter Machine Lot No. LRB No. Used Action GRAFT,ACUSEAL,TPR,[id number] ([id number]) - [id number] IMPLANTS GRAFT,ACUSEAL,[id number] [employer] - WL [...] Text Report Department: Vascular Surgery Lab Patient: [id number] (RIZWANA AMBROSEN) CPT: 48515 ICD10: N18.6 Referring Physician: ANNA SHAH ?? [...] EDT) Potassium 4.5 3.5 - 5.0 mmol/L [facility] Comment: Please note: ??Patients with [...] Lab Anna Shah MD CHEMISTRY ORDERABL ES [facility] [place] [address] * (ABNORMAL) Basic Metabolic Panel (non-fasting) (12/14/2018 4:39 AM EDT) Glucose 107 65 - 199 mg/dL [facility] Comment:Diabetes: >=200 mg/d L plus symptoms Blood Urea Nitrogen 39(H) 10 - 20 mg/dL [facility] Creatinine 5.17(H) 0.80 - 1.50 mg/dL [facility] Comment:delta result recheck ed-KLA Sodium 137 135 - 145 mmol/L [facility] Potassium 5.0 3.5 - 5.0 mmol/L [facility] Comment: Please note: ??Patients with WBC >100,000 may have falsely elevated Potassium levels. ??For accurate Potassium quantification in these patients send serum separator tube (gold top) for subsequent determinations. ??Contact the Clinical Chemistry Laboratory if there are any questions. Chloride 97(L) 98 - 107 mmol/L [facility] Carbon Dioxide 27 22 - 31 mmol/L [facility] Anion Gap 13 5 - 15 mmol/L [facility] Calcium 8.4(L) 8.5 - 10.5 mg/dL [facility] Est Glomerular Filtration Rate 11(L) >=60 mL/min/1. 73 m?? [facility] Comment: The eGFR was calculated using the CKD-EPI equation. As with all creatinine based estimates of kidney function, eGFR values calculated with the CKD-EPI equation are not accurate in patients with acute kidney failure, extremes of body mass or the acutely ill. [email or web address] eGFR 13(L) >=60 mL/min/1. 73 m?? [facility] Comment: The eGFR was calculated using the CKD-EPI equation. As with all creatinine based estimates of kidney function, eGFR values calculated with the CKD-EPI equation are not accurate in patients with acute kidney failure, extremes of body mass or the acutely ill. [email or web address] Blood specimen (specimen) 12/14/2018 4:39 AM EDT 12/14/2018 5:01 AM EDT Narrative Resulting Agency Comment Spec In Lab Anna Shah MD CHEMISTRY ORDERABL ES Performing Organization Address City/[facility]/ZIP Co de Phone Number [facility] [place] [address] * POCT Glucose (12/13/2018 8:32 PM EDT) Glucose, POC 134 65 - 199 mg/dL [facility] Comment: Supplemental ranges: <140 mg/dL before meals <180 mg/dL all other times of the day Blood specimen (specimen) 12/13/2018 8:32 PM EDT 12/13/2018 8:32 PM EDT Anna Shah MD POINT OF CARE TEST ORDERABLES [facility] [place] [address] * (ABNORMAL) POCT Glucose (12/13/2018 7:51 PM EDT) Glucose, POC 56(L) 65 - 199 mg/dL [facility] Comment: Supplemental ranges: <140 mg/dL before meals <180 mg/dL all other times of the day Blood specimen (specimen) 12/13/2018 7:51 PM EDT 12/13/2018 7:51 PM EDT Anna Shah MD POINT OF CARE TEST ORDERABLES [facility] [place] [address] * (ABNORMAL) POCT Glucose (12/13/2018 7:20 PM EDT) Glucose, POC 54(Critica l) 65 - 199 mg/dL [facility] Comment: Supplemental ranges: <140 mg/dL before meals <180 mg/dL all other times of the day Blood specimen (specimen) 12/13/2018 7:20 PM EDT 12/13/2018 7:20 PM EDT Anna Shah MD POINT OF CARE TEST ORDERABLES Performing Organization Address City/[facility] Co de Phone Number [facility] [place] [address] * (ABNORMAL) POCT Glucose (12/13/2018 7:18 PM EDT) Glucose, POC 38(Critica l) 65 - 199 mg/dL [facility] Comment: Supplemental ranges: <140 mg/dL before meals <180 mg/dL all other times of the day Blood specimen (specimen) 12/13/2018 7:18 PM EDT 12/13/2018 7:18 PM EDT Anna Shah MD POINT OF CARE TEST ORDERABLES Performing Organization Address City/[facility]/ZIP Co de Phone Number [facility] [place] [address] * (ABNORMAL) Hemogram (12/13/2018 6:32 PM EDT) Pathologist [facility] White Blood Cell 4.8 4.0 - 9.5 x10(3)/mc L [facility] Red Blood Cell 3.51(L) 4.58 - 5.54 x10(6)/mc L [facility] Hemoglobin 10.5(L) 13.7 - 16.5 gm/dL [facility] Hematocrit 32.3(L) 40.5 - 48.5 % [facility] Mean Cell Volume 92.0 82.9 - 93.1 fL [facility] Mean Cell Hemoglobin 29.9 27.5 - 32.1 pg [facility] Mean Cell Hemoglobin Concentration 32.5 32.0 - 35.7 gm/dL [facility] Platelet 172 145 - 357 x10(3)/[facility]AT[facility] RDW Standard Deviation 59.7(H) 36.0 - 45.0 [facility] RDW coefficient of variation 17.5(H) 11.4 - 13.8 % [facility] Mean Platelet Volume 9.1 7.6 - 12.9 fL [facility] NRBC% auto 0.0 % [facility] NRBC Absolute 0.000 0.000 - 0.000 x10(3)/[facility] Blood specimen (specimen) 12/13/2018 6:32 PM EDT 12/13/2018 7:33 PM EDT Narrative Resulting Agency Comment Spec In Lab Carroll Baires MD HEMATOLOGY ORDERABLE S [facility] [place] [address] * (ABNORMAL) Basic Metabolic Panel (non-fasting) (12/13/2018 6:16 PM EDT) [facility] Glucose 123 65 - 199 mg/dL [facility] Comment:Diabetes: >=200 mg/d L plus symptoms Blood Urea Nitrogen 55(H) 10 - 20 mg/dL [facility] Creatinine 6.94(H) 0.80 - 1.50 mg/dL [facility] Sodium 134(L) 135 - 145 mmol/L [facility] Potassium 7.2(Criti constance) 3.5 - 5.0 mmol/L [facility] Comment: Called by: mark, Read back by: Odalis Shen, Date/Time:12/13/18 19:00. Please note: ??Patients with WBC >100,000 may have falsely elevated Potassium levels. ??For accurate Potassium quantification in these patients send serum separator tube (gold top) for subsequent determinations. ??Contact the Clinical Chemistry Laboratory if there are any questions. Chloride 95(L) 98 - 107 mmol/L [facility] Carbon Dioxide 28 22 - 31 mmol/L [facility] Anion Gap 11 5 - 15 mmol/L [facility] Calcium 8.3(L) 8.5 - 10.5 mg/dL [facility] Est Glomerular Filtration Rate 8(L) >=60 mL/min/1. 73 m?? [facility] Comment: The eGFR was calculated using the CKD-EPI equation. As with all creatinine based estimates of kidney function, eGFR values calculated with the CKD-EPI equation are not accurate in patients with acute kidney failure, extremes of body mass or the acutely ill. [email or web address]/[facility]ATIONnkf eGFR 9(L) >=60 mL/min/1. 73 m?? [facility] Comment: The eGFR was calculated using the CKD-EPI equation. As with all creatinine based estimates of kidney function, eGFR values calculated with the CKD-EPI equation are not accurate in patients with acute kidney failure, extremes of body mass or the acutely ill. [email or web address]OCIATIONnkf Blood specimen (specimen) 12/13/2018 6:16 PM EDT 12/13/2018 6:23 PM EDT Narrative Resulting Agency Comment Spec In Lab Carroll Baires MD CHEMISTRY ORDERABLES [facility] [place] [address] * Hepatitis B Surface Antigen (12/13/2018 6:16 PM EDT) Pathologist [facility] Hepatitis B Surface Antigen Negative Negative [facility] Blood specimen (specimen) 12/13/2018 6:16 PM EDT 12/13/2018 6:23 PM EDT Narrative Resulting Agency Comment Spec In Lab Carroll Baires MD CHEMISTRY ORDERABLES Performing Organization Address [facility] Co de Phone Number [facility] [place] [address] * EKG 12 Lead (12/13/2018 5:46 PM EDT) [facility] Ventricular rate 46 BPM MUSE SYSTEM Atrial Rate 46 BPM MUSE SYSTEM P-R Interval 174 ms MUSE SYSTEM QRS Duration 100 ms MUSE SYSTEM Q-T Interval 468 ms MUSE SYSTEM QTC Calculated (Bezet) 409 ms MUSE SYSTEM Calculated P Silvis 71 degrees MUSE SYSTEM Calculated R Silvis 78 degrees MUSE SYSTEM Calculated T Silvis 51 degrees MUSE SYSTEM INTERPRETATION Marked sinus bradycardia Abnormal ECG When compared with ECG of 03-AUG-2018 19:06, Nonspecific T wave abnormality no longer evident in Inferior leads QT has shortened Confirmed by MD Delores, Tim ([id number]) on 12/13/2018 6:56:25 PM MUSE SYSTEM 12/13/2018 5:46 PM EDT 12/13/2018 6:56 PM EDT Anna Shah MD ECG ORDERABLES Performing Organization Address City/[facility]/ZIP Co de Phone Number MUSE SYSTEM * (ABNORMAL) Potassium (12/13/2018 3:40 PM EDT) Pathologist [facility] Potassium 7.2(Criti constance) 3.5 - 5.0 mmol/L [facility] Comment: Called by: ARACELI, Read [...] Lab Anna Shah MD CHEMISTRY ORDERABL ES [facility] [place] [address] documented in this encounter Visit Diagnoses Not [...] Warning Vesicant/Irritant Medication Patient must be on satellite project site monitor when receiving calcium; calcium can exacerbate [...] Warning Vesicant/Irritant Medication Patient must be on satellite project site monitor when receiving calcium; calcium can exacerbate [...] Routine documented in this encounter Care Teams Electrical Test Engineer Relationship Specialty Start Date End Date Carroll Fuentes DO [address] [place] [address] PCP - General 09/23/11 10/20/22 documented as of this encounter
--- OUTSIDE RECORDS SUMMARY | 2024-05-23 13:17 | XMS_ITS | Encounter Summary ---
Author Organization [facility] Address [facility] [place] [address] Care Team Providers Care Supervisory Forester Name Role Phone AlfredoCarroll allison Primary Care Provider [phone] Encounter Details Date Type Department Care Team (Late st Contact Info) Description 11/29/2018 10:20 AM EDT Office Visit [place] [address] Anup Hawkins MD [facility] [place] [address] H/O kidney transplant; ESRD (end stage renal [...] has been on HD now at the [facility] unit which is across the [...] output CHF. 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 his brother documented in this encounter Plan of Treatment Not on file documented as of this encounter Results * BKV Quant Urine (11/29/2018 10:02 AM EDT) Pathologist [facility] BKV Urine Result Not Detected [facility] BKV Urine Interp BK Virus Urine Result Interpretation Result: BK Virus not detected Specimen type: urine Assay Range: 2.80-7.80 log copies/mL (6.28x10^2 - 6.28x10^7 copies/mL) Methods: Quantitative real-time polymerase chain reaction (PCR) of viral DNA isolated from plasma was performed using [employer] BKV analyte-specific reagents and the [employer] System that automates both nucleic acid isolation [...] Genomics and [facility] Technology (CGAT) Laboratory at [facility] [place] It has not been cleared or approved by the FDA. The laboratory is regulated under CLIA as qualified to perform high-complexity testing. This test is used for clinical purposes. It should not be regarded as investigational or for research. [facility] Comment: [VERIFIED DATE]12.01.18 Verified By:Amy Turk (Electronic Signature) Urine specimen (specimen) 11/29/2018 10:02 AM EDT 11/29/2018 11:27 AM EDT Narrative Resulting Agency Comment Spec In Lab Anup Hawkins MD MOLECULAR ORDERAB LES [facility] [place] [address] * Vitamin D, 25-Hydroxy (11/29/2018 9:45 AM EDT) Pathologist [facility] Vitamin D Total 25 OH 49 30 - 100 ng/mL [facility] Comment: Deficient <10 ng/mL Insufficient 10 to 29 ng/mL Sufficient 30 to 100 ng/mL Potential Intoxication >100 ng/mL According to the [place] National Osteoporosis Foundation, Vitamin D concentrations >30 ng/mL are sufficient to protect bone health. ??The National Kidney Foundation has similarly stated that patients with Vitamin D concentrations <30ng/mL should be considered to be insufficient or deficient. http://PositiveID/nkf-guidelines http://PositiveID/nejm-VitD The [employer] Vitamin D Immunoassay detects both 25-OH Vitamin D2 and 25-OH Vitamin D3, but only a total Vitamin D concentration is reported. Blood specimen (specimen) 11/29/2018 9:45 AM EDT 11/29/2018 1:11 PM EDT Narrative Resulting Agency Comment Spec In Lab Anup Hawkins MD CHEMISTRY ORDERAB LES Performing Organization Address City/[facility]/ZIP Co de Phone Number [facility] [place] [address] * Uric acid (11/29/2018 9:45 AM EDT) Uric Acid 3.7 3.5 - 8.5 mg/dL [facility] Blood specimen (specimen) 11/29/2018 9:45 AM EDT 11/29/2018 9:57 AM EDT Narrative Resulting Agency Comment Spec In Lab Anup Hawkins MD CHEMISTRY ORDERAB LES Performing Organization Address City/[facility]/ZIP Co de Phone Number [facility] [place] [address] * (ABNORMAL) Reticulocyte Count (11/29/2018 9:45 AM EDT) Reticulocyte % 1.1 0.7 - 2.6 % [facility] Retic Abs # 0.040 0.030 - 0.120 x10(6)/mcL [facility] Immature Retic% 20.0(H) 0.0 - 15.6 % [facility] Reticulated Hgb 39.0 31.3 - 40.[address] [facility] Blood specimen (specimen) 11/29/2018 9:45 AM EDT 11/29/2018 9:57 AM EDT Narrative Resulting Agency Comment Spec In Lab Anup Hawkins MD HEMATOLOGY ORDERA BLES Performing Organization Address [facility] de Phone Number [facility] [place] [address] * Tacrolimus level (11/29/2018 9:45 AM EDT) Tacrolimus 7.4 ng/mL [facility] Comment: Trough therapeutic: ??5-15 ng/mL Performed by ultra-performance liquid chromatography tandem mass spectrometry (UPLCMS/MS). This test was developed and its performance characteristics determined by [facility]. It has not been cleared [...] MD CHEMISTRY ORDERAB LES Performing Organization Address [facility] Co de Phone Number [facility] [place] [address] * PTH (11/29/2018 9:45 AM EDT) Parathyroid Hormone 52 15 - 65 pg/mL [facility] Blood specimen (specimen) 11/29/2018 9:45 AM EDT 11/29/2018 9:57 AM EDT Narrative Resulting Agency Comment Spec In Lab Anup Hawkins MD CHEMISTRY ORDERAB LES Performing Organization Address [facility] Co de Phone Number [facility] [place] [address] * Phosphorus (11/29/2018 9:45 AM EDT) Phosphorus 3.6 2.5 - 4.5 mg/dL [facility] Blood specimen (specimen) 11/29/2018 9:45 AM EDT 11/29/2018 9:57 AM EDT Narrative Resulting Agency Comment Spec In Lab Anup Hawkins MD CHEMISTRY ORDERAB LES Performing Organization Address City/[facility]/ZIP Co de Phone Number [facility] [place] [address] * Magnesium (11/29/2018 9:45 AM EDT) Magnesium 0.87 0.69 - 1.07 mmol/L [facility] Blood specimen (specimen) 11/29/2018 9:45 AM EDT 11/29/2018 9:57 AM EDT Narrative Resulting Agency Comment Spec In Lab Anup Hawkins MD CHEMISTRY ORDERAB LES Performing Organization Address City/[facility] Co de Phone Number [facility] [place] [address] * Lipid Panel (11/29/2018 9:45 AM EDT) Cholesterol, Total 162 mg/dL [facility] Comment: Lower Risk: <200 mg/dL Average Risk: 200-239 mg/dL Higher Risk: >ma=006 mg/dL Triglyceride 103 mg/dL [facility] Comment: Average Risk/Lower Risk: <150 mg/dL Borderline High Risk: 150-199 mg/dL High Risk: 200-499 mg/dL Very High Risk: >ks=276 mg/dL HDL Cholesterol 34 mg/dL [facility] Comment: Males: ?? Higher Risk: <40 mg/dL Females: ?? HIgher Risk: <50 mg/dL LDL Cholesterol 107 mg/dL [facility] Comment: Lowest Risk: <100 mg/dL Lower Risk: 100-129 mg/dL Borderline High Risk: 130-159 mg/dL High Risk: 160-189 mg/dL Very High Risk: >ud=587 mg/dL Cholesterol/HDL Ratio 4.[address] [facility] Lipid Interpretation See Note [facility] Comment: Lipid management should be guided by a patient? s ASCVD risk, goals and preferences. ACC/AHA Guidelines recommend high intensity statin if clinical ASCVD or LDL greater than or equal to 190 mg/dL. http://Blue Saint.com/QZF-ZOZ-Nxkljkeul Adults aged 40-75 with LDL 70-189 mg/dL should have their 10 year ASCVD risk estimated with the ACC/AHA ASCVD risk auto body estimator http://tools.acc.org/DPLXN-Qzcv-Copsgtqau/ Statin should be discussed if risk greater [...] CHEMISTRY ORDERAB LES [facility] [place] [address] * Lavender Tube HOLD (11/29/2018 9:45 AM EDT) Pathologist [facility] Lavender Hold Sample in lab. [facility] Blood specimen (specimen) 11/29/2018 9:45 AM EDT 11/29/2018 9:57 AM EDT Anup Hawkins MD HEMATOLOGY ORDERA BLES [facility] [place] [address] * Hemoglobin A1c (11/29/2018 9:45 AM EDT) Hemoglobin A1c 5.4 4.3 - 5.6 % [facility] Comment: Reference Range: 4.3 - [...] Mellitus, Diabetes Care 2013; 36: Suppl. 1, S67-34 Estimated Average Glucose 108 mg/dL [facility] Comment: eAG equivalents for HbA1c [...] into estimated average glucose values. ??Diabetes Care 2008:31(8):7540-8968. Blood specimen (specimen) 11/29/2018 9:45 AM EDT 11/29/2018 9:57 AM EDT Narrative Resulting Agency Comment Spec In Lab Anup Hawkins MD CHEMISTRY ORDERAB LES [facility] [place] [address] * Gold Tube HOLD (11/29/2018 9:45 AM EDT) Gold Hold Sample in lab. [facility] Blood specimen (specimen) 11/29/2018 9:45 AM EDT 11/29/2018 9:57 AM EDT Anup Hawkins MD CHEMISTRY ORDERAB LES Performing Organization Address [facility] Co de Phone Number [facility] [place] [address] * (ABNORMAL) CMP w/fasting Glucose (11/29/2018 9:45 AM EDT) Glucose Fasting 104(H) 65 - 99 mg/dL [facility] [...] of Diabetes Mellitus, Position Statement from the [place] [employer]. ??Diabetes Care, Volume 33, Supplement 1, Jul 2009 Blood Urea Nitrogen 43(H) 10 - 20 mg/dL [facility] Creatinine 7.34(H) 0.80 - 1.50 mg/dL [facility] Sodium 137 135 - 145 mmol/L [facility] Potassium 5.8(H) 3.5 - 5.0 mmol/L [facility] Comment: Please note: ??Patients with WBC >100,000 may have falsely elevated Potassium levels. ??For accurate Potassium quantification in these patients send serum separator tube (gold top) for subsequent determinations. ??Contact the Clinical Chemistry Laboratory if there are any questions. Chloride 95(L) 98 - 107 mmol/L [facility] Carbon Dioxide 26 22 - 31 mmol/L [facility] Anion Gap 16(H) 5 - 15 mmol/L [facility] Calcium 9.4 8.5 - 10.5 mg/dL [facility] Protein, Total 7.7 6.1 - 8.0 gm/dL [facility] Albumin 4.2 3.2 - 5.2 gm/dL [facility] Aspartate Aminotransferase 14 0 - 39 unit/L [facility] Alanine Aminotransferase 13 0 - 55 unit/L [facility] Alkaline Phosphatase 93 40 - 120 unit/L [facility] Bilirubin, Total 0.5 0.2 - 1.3 mg/dL [facility] Est Glomerular Filtration Rate 7(L) >=60 mL/min/1. 73 m?? [facility] Comment: The eGFR was calculated using the CKD-EPI equation. As with all creatinine based estimates of kidney function, eGFR values calculated with the CKD-EPI equation are not accurate in patients with acute kidney failure, extremes of body mass or the acutely ill. http://PositiveID/DHnkf eGFR 9(L) >=60 mL/min/1. 73 m?? [facility] Comment: The eGFR was calculated using the CKD-EPI equation. As with all creatinine based estimates of kidney function, eGFR values calculated with the CKD-EPI equation are not accurate in patients with acute kidney failure, extremes of body mass or the acutely ill. http://PositiveID/DHMCnkf Blood specimen (specimen) 11/29/2018 9:45 AM EDT 11/29/2018 9:57 AM EDT Narrative Resulting Agency Comment Spec In Lab Anup Hawkins MD CHEMISTRY ORDERAB LES [facility] [place] [address] * 1,25-dihydroxycholecalciferol (11/29/2018 9:45 AM EDT) Vit D 1,25 Dihydroxy (NOVEMBER) 24 18 - 64 pg/mL [facility] Comment: ADDITIONAL INFORMATION This test was developed and its performance characteristics determined by [facility] in a manner consistent with CLIA requirements. This test has not been cleared or approved by the U.S. Food and Drug Administration. Test Performed by: [facility] [address] [place] [address] Blood specimen (specimen) 11/29/2018 9:45 AM EDT 11/29/2018 12:16 PM EDT Narrative Resulting Agency Comment Spec In Lab Anup Hawkins MD LAB SEND OUT RYAN CALERO [facility] [place] [address] documented in this encounter Visit Diagnoses Diagnosis H/O kidney transplant Kidney replaced by transplant ESRD (end stage renal disease) End stage renal disease Failed kidney transplant Complications of transplanted kidney documented in this encounter Care Teams Supervisory Forester Relationship Specialty Start Date End Date Carroll Fuentes DO [address] [place] [address] PCP - General 09/23/11 10/20/22 documented as of this encounter
--- OUTSIDE RECORDS SUMMARY | 2024-05-23 13:17 | XMS_ITS | Encounter Summary ---
Author Organization [facility] Address [facility] [place] [address] Care Team Providers Care Executive Chef Name Role Phone Carroll Fuentes DO Primary Care Provider Reason for Visit * Consultation (Routine) - Closed Specialty Diagnoses / Procedures Referred By Shashi ko Referred To Contact Vascular Surgery Diagnoses ESRD (end stage renal disease) Sagrario Hodges, RN [address] [place] [address] [place] [address] Aries Tong MD [facility] [place] [place] [address] Referral ID Status Reason Start Date Expiration Date V isits Requested Visits Authorized [id number] Closed Consult Only 11/07/2018 11/07/2019 2 2 Encounter Details Date Type Department Care Team (Late st Contact Info) Description 11/29/2018 1:00 PM EDT Tech Visit [place] [address] Matheus Cop[place] ESRD (end stage renal [...] Text Report Department: Vascular Surgery Lab Patient: [id number] (ARNOL, CHRISTY) CPT: G0365 ICD10: Z01.818;N18.6 Referring [...] documented in this encounter Care Teams Executive Chef Relationship Specialty Start Date End Date Carroll Fuentes DO [address] [place] [address] PCP - General 09/23/11 10/20/22 documented as of this encounter
--- OUTSIDE RECORDS SUMMARY | 2024-05-23 13:17 | XMS_ITS | Encounter Summary ---
[place] [address] Care Team Providers Care Vacuum Repairer Name Role Phone AlfredoCarroll allison Primary Care Provider [phone] Encounter Details Date Type Department Care Team (Latest Contact Info) Description 11/29/2018 9:20 AM EDT Laboratory Appointment Lab [address] [place] [id number] H/O kidney transplant; S/P kidney transplant Social [...] AM EDT) BKV Urine Result Not Detected [facility] BKV Urine Interp BK Virus Urine Result Interpretation Result: BK Virus not detected Specimen type: urine Assay Range: 2.80-7.80 log copies/mL (6.28x10^2 - 6.28x10^7 copies/mL) Methods: Quantitative real-time polymerase chain reaction (PCR) of viral DNA isolated from plasma was performed using Luminex BKV analyte-specific reagents and the [employer] System that automates both nucleic acid isolation [...] [facility] (CGAT) Laboratory at [facility]. It has not been cleared or approved by the FDA. The laboratory is regulated under CLIA as qualified to perform high-complexity testing. This test is used for clinical purposes. It should not be regarded as investigational or for research. [facility] Comment: [VERIFIED DATE]12.01.18 Verified By:Amy Turk (Electronic Signature) Urine specimen (specimen) 11/29/2018 10:02 AM EDT 11/29/2018 11:27 AM EDT Narrative Resulting Agency Comment Spec In Lab Anup Hawkins MD MOLECULAR ORDERAB LES [facility] [place] [address] * Differential, Automated (11/29/2018 9:45 AM EDT) Neutrophil % 59.8 % [facility] Neutrophil Absolute 2.88 1.70 - 6.10 x10(3)/[facility] LABORATORY Lymph % 25.5 % [facility] Lymphocytes Abs 1.2 0.9 - 3.2 x10(3)/[facility] LABORATORY Monocyte % 11.4 % [facility] Monocyte Abs 0.6 0.3 - 0.9 x10(3)/[facility] LABORATORY Eos % 2.3 % [facility] Eosinophils Abs 0.1 0.0 - 0.4 x10(3)/[facility] LABORATORY Basophil % 0.8 % [facility] Baso Absolute 0.0 0.0 - 0.1 x10(3)/[facility] LABORATORY Immature Gran % 0.20 % [facility] Comment: Immature granulocytes(IG's)percentage and absolute count will include metamyelocytes, myelocytes, and promyelocytes. Blood smears from CBCs yielding IG's will be scanned manually for concordance. If this scan disagrees with the automated IG or if promyelocytes are noted, a manual differential will be performed. Immature Gran Absolute 0.01 0.00 - 0.04 x10(3)/[facility]ORY Blood specimen (specimen) 11/29/2018 9:45 AM EDT 11/29/2018 9:57 AM EDT Narrative Resulting Agency Comment Spec In Lab Anup Hawkins MD HEMATOLOGY ORDERA BLES [facility] [place] [address] * (ABNORMAL) Hemogram (11/29/2018 9:45 AM EDT) White Blood Cell 4.8 4.0 - 9.5 x10(3)/mc L [facility] Red Blood Cell 4.10(L) 4.58 - 5.54 x10(6)/mc L [facility] Hemoglobin 11.8(L) 13.7 - 16.5 gm/dL [facility] Hematocrit 37.4(L) 40.5 - 48.5 % [facility] Mean Cell Volume 91.2 82.9 - 93.1 fL [facility] Mean Cell Hemoglobin 28.8 27.5 - 32.1 pg [facility] Mean Cell Hemoglobin Concentration 31.6(L) 32.0 - 35.7 gm/dL [facility] Platelet 200 145 - 357 x10(3)/mc L [facility] RDW Standard Deviation 53.2(H) 36.0 - 45.0 fL [facility] RDW coefficient of variation 16.1(H) 11.4 - 13.8 % [facility] Mean Platelet Volume 8.9 7.6 - 12.9 fL [facility] NRBC% auto 0.0 % [facility] NRBC Absolute 0.000 0.000 - 0.000 x10(3)/mc L [facility] Blood specimen (specimen) 11/29/2018 9:45 AM EDT 11/29/2018 9:57 AM EDT Narrative Resulting Agency Comment Spec In Lab Anup Hawkins MD HEMATOLOGY ORDERA BLES Performing Organization Address [facility] de Phone Number [facility] [place] [address] * 1,25-dihydroxycholecalciferol (11/29/2018 9:45 AM EDT) Vit D 1,25 Dihydroxy (NOVEMBER) 24 18 - 64 pg/mL [facility] Comment: ADDITIONAL INFORMATION This test was developed and its performance characteristics determined by [facility] in a manner consistent with CLIA requirements. This test has not been cleared or approved by the U.S. Food and Drug Administration. Test Performed by: [facility] [address] [place] [address] Blood specimen (specimen) 11/29/2018 9:45 AM EDT 11/29/2018 12:16 PM EDT Narrative Resulting Agency Comment Spec In Lab Anup Hawkins MD LAB SEND OUT RYAN CALERO Performing Organization Address [facility] Co de Phone Number [facility] [place] [address] * (ABNORMAL) CMP w/fasting Glucose (11/29/2018 9:45 AM EDT) Glucose Fasting 104(H) 65 - 99 mg/dL [facility] Comment: ?Fasting* Glucose Interpretive [...] of Diabetes Mellitus, Position Statement from the [place] Diabetes [employer]. ??Diabetes Care, Volume 33, Supplement 1, Jul 2009 Blood Urea Nitrogen 43(H) 10 - 20 mg/dL [facility] Creatinine 7.34(H) 0.80 - 1.50 mg/dL [facility] Sodium 137 135 - 145 mmol/L [facility] Potassium 5.8(H) 3.5 - 5.0 mmol/L [facility] Comment: Please note: ??Patients with WBC >100,000 may have falsely elevated Potassium levels. ??For accurate Potassium quantification in these patients send serum separator tube (gold top) for subsequent determinations. ??Contact the Clinical Chemistry Laboratory if there are any questions. Chloride 95(L) 98 - 107 mmol/L [facility] Carbon Dioxide 26 22 - 31 mmol/L [facility] Anion Gap 16(H) 5 - 15 mmol/L [facility] Calcium 9.4 8.5 - 10.5 mg/dL [facility] Protein, Total 7.7 6.1 - 8.0 gm/dL [facility] Albumin 4.2 3.2 - 5.2 gm/dL [facility] Aspartate Aminotransferase 14 0 - 39 unit/L [facility] Alanine Aminotransferase 13 0 - 55 unit/L [facility] Alkaline Phosphatase 93 40 - 120 unit/L [facility] Bilirubin, Total 0.5 0.2 - 1.3 mg/dL [facility] Est Glomerular Filtration Rate 7(L) >=60 mL/min/1. 73 m?? [facility] Comment: The eGFR was calculated using the CKD-EPI equation. As with all creatinine based estimates of kidney function, eGFR values calculated with the CKD-EPI equation are not accurate in patients with acute kidney failure, extremes of body mass or the acutely ill. http://[employer]/[facility]SAnkf eGFR 9(L) >=60 mL/min/1. 73 m?? [facility] Comment: The eGFR was calculated using the CKD-EPI equation. As with all creatinine based estimates of kidney function, eGFR values calculated with the CKD-EPI equation are not accurate in patients with acute kidney failure, extremes of body mass or the acutely ill. http://[employer]/DHnkf Blood specimen (specimen) 11/29/2018 9:45 AM EDT 11/29/2018 9:57 AM EDT Narrative Resulting Agency Comment Spec In Lab Anup Hawkins MD CHEMISTRY ORDERAB LES [facility] [place] [address] * Gold Tube HOLD (11/29/2018 9:45 AM EDT) Gold Hold Sample in lab. [facility] Blood specimen (specimen) 11/29/2018 9:45 AM EDT 11/29/2018 9:57 AM EDT Anup Hawkins MD CHEMISTRY ORDERAB LES [facility] [place] [address] * Hemoglobin A1c (11/29/2018 9:45 AM EDT) Hemoglobin A1c 5.4 4.3 - 5.6 % [facility] Comment: Reference Range: 4.3 [...] 1, S67-74 Estimated Average Glucose 108 mg/dL [facility] Comment: eAG equivalents for [...] into estimated average glucose values. ??Diabetes Care 2008:31(8):6881-7054. Blood specimen (specimen) 11/29/2018 9:45 AM EDT 11/29/2018 9:57 AM EDT Narrative Resulting Agency Comment Spec In Lab Anup Hawkins MD CHEMISTRY ORDERAB LES Performing Organization Address City/[facility]/ZIP Co de Phone Number [facility] [place] [address] * Lavender Tube HOLD (11/29/2018 9:45 AM EDT) Lavender Hold Sample in lab. [facility] Blood specimen (specimen) 11/29/2018 9:45 AM EDT 11/29/2018 9:57 AM EDT Anup Hawkins MD HEMATOLOGY ORDERA BLES Performing Organization Address [facility] Co de Phone Number [facility] [place] [address] * Lipid Panel (11/29/2018 9:45 AM EDT) Cholesterol, Total 162 mg/dL [facility] Comment: Lower Risk: <200 mg/dL Average Risk: 200-239 mg/dL Higher Risk: >nn=404 mg/dL Triglyceride 103 mg/dL [facility] Comment: Average Risk/Lower Risk: <150 mg/dL Borderline High Risk: 150-199 mg/dL High Risk: 200-499 mg/dL Very High Risk: >pf=067 mg/dL HDL Cholesterol 34 mg/dL [facility] Comment: Males: ?? Higher Risk: <40 mg/dL Females: ?? HIgher Risk: <50 mg/dL LDL Cholesterol 107 mg/dL [facility] Comment: Lowest Risk: <100 mg/dL Lower Risk: 100-129 mg/dL Borderline High Risk: 130-159 mg/dL High Risk: 160-189 mg/dL Very High Risk: >en=209 mg/dL Cholesterol/HDL Ratio 4.8 ratio [facility] Lipid Interpretation See Note [facility] Comment: Lipid management should be guided by a patient? s ASCVD risk, goals and preferences. ACC/AHA Guidelines recommend high intensity statin if clinical ASCVD or LDL greater than or equal to 190 mg/dL. http://Cordurourl.com/ZCZ-LXS-Qlvuerehy Adults aged 40-75 with LDL 70-189 mg/dL should have their 10 year ASCVD risk estimated with the ACC/AHA ASCVD risk brand designer http://tools.acc.org/SUAET-Jrev-Xzfuwsjzs/ Statin should be discussed if risk greater [...] MD CHEMISTRY ORDERAB LES Performing Organization Address [facility] Co de Phone Number [facility] [place] [address] * Magnesium (11/29/2018 9:45 AM EDT) Magnesium 0.87 0.69 - 1.07 mmol/L [facility] Blood specimen (specimen) 11/29/2018 9:45 AM EDT 11/29/2018 9:57 AM EDT Narrative Resulting Agency Comment Spec In Lab Anup Hawkins MD CHEMISTRY ORDERAB LES Performing Organization Address City/[facility]/ZIP Co de Phone Number [facility] [place] [address] * Phosphorus (11/29/2018 9:45 AM EDT) Phosphorus 3.6 2.5 - 4.5 mg/dL [facility] Blood specimen (specimen) 11/29/2018 9:45 AM EDT 11/29/2018 9:57 AM EDT Narrative Resulting Agency Comment Spec In Lab Anup Hawkins MD CHEMISTRY ORDERAB LES Performing Organization Address City/[facility]/ZIP Co de Phone Number [facility] [place] [address] * PTH (11/29/2018 9:45 AM EDT) Parathyroid Hormone 52 15 - 65 pg/mL [facility] Blood specimen (specimen) 11/29/2018 9:45 AM EDT 11/29/2018 9:57 AM EDT Narrative Resulting Agency Comment Spec In Lab Anup Hawkins MD CHEMISTRY ORDERAB LES Performing Organization Address [facility] de Phone Number [facility] [place] [address] * Tacrolimus level (11/29/2018 9:45 AM EDT) Pathologist [facility] Tacrolimus 7.4 ng/mL [facility] Comment: Trough therapeutic: ??5-15 ng/mL Performed by ultra-performance liquid chromatography tandem mass spectrometry (UPLCMS/MS). This test was developed and its performance characteristics determined by [facility]. It has not been cleared or [...] MD CHEMISTRY ORDERAB LES Performing Organization Address [facility] Co de Phone Number [facility] [place] [address] * (ABNORMAL) Reticulocyte Count (11/29/2018 9:45 AM EDT) Pathologist [facility] Reticulocyte % 1.1 0.7 - 2.6 % [facility] Retic Abs # 0.040 0.030 - 0.120 x10(6)/mcL [facility] Immature Retic% 20.0(H) 0.0 - 15.6 % [facility] Reticulated Hgb 39.0 31.3 - 40.2 pg [facility] Blood specimen (specimen) 11/29/2018 9:45 AM EDT 11/29/2018 9:57 AM EDT Narrative Resulting Agency Comment Spec In Lab Anup Hawkins MD HEMATOLOGY ORDERA BLES Performing Organization Address [facility] Co de Phone Number [facility] [place] [address] * Uric acid (11/29/2018 9:45 AM EDT) Uric Acid 3.7 3.5 - 8.5 mg/dL [facility] Blood specimen (specimen) 11/29/2018 9:45 AM EDT 11/29/2018 9:57 AM EDT Narrative Resulting Agency Comment Spec In Lab Anup Hawkins MD CHEMISTRY ORDERAB LES Performing Organization Address [facility] Co de Phone Number [facility] [place] [address] * Vitamin D, 25-Hydroxy (11/29/2018 9:45 AM EDT) Vitamin D Total 25 OH 49 30 - 100 ng/mL [facility] Comment: Deficient <10 ng/mL Insufficient 10 to 29 ng/mL Sufficient 30 to 100 ng/mL Potential Intoxication >100 ng/mL According to the US National Osteoporosis Foundation, Vitamin D concentrations >30 ng/mL are sufficient to protect bone health. ??The National Kidney Foundation has similarly stated that patients with Vitamin D concentrations <30ng/mL should be considered to be insufficient or deficient. http://[employer].com/nkf-guidelines http://[employer].com/nejm-VitD The [employer] i[employer] Vitamin D Immunoassay detects both 25-OH Vitamin D2 and 25-OH Vitamin D3, but only a total Vitamin D concentration is reported. Blood specimen (specimen) 11/29/2018 9:45 AM EDT 11/29/2018 1:11 PM EDT Narrative Resulting Agency Comment Spec In Lab Anup Hawkisn MD CHEMISTRY ORDERAB LES [facility] [place] [address] documented in this encounter Visit Diagnoses Diagnosis H/O kidney transplant Kidney replaced by transplant S/P kidney transplant Kidney replaced by transplant documented in this encounter Care Teams Vacuum Repairer Relationship Specialty Start Date End Date Carroll Fuentes DO [address] [place] [address] PCP - General 09/23/11 10/20/22 documented as of this encounter
--- OUTSIDE RECORDS SUMMARY | 2024-05-23 13:17 | XMS_ITS | Encounter Summary ---
Author Organization On License Of [facility] Address [facility] [place] [address] Care Team Providers Care Application Operations Engineer Name Role Phone Carroll Fuentes DO Primary Care Provider [phone] Reason for Visit * Reason Comments Skin Check Encounter Details Date Type Department Care Team (Late st Contact Info) Description 08/18/2018 11:45 AM EST Office Visit Dermatology at [facility] [address] [place] [address] Chanel Smith MD [facility] [address] [place] [address] Actinic keratoses; Multiple benign nevi; Shalom's disease; History of nonmelanoma skin cancer; History [...] and signed by: Chanel Smith MD Dermatology [facility] documented in this encounter Plan of Treatment Not on file documented as of this encounter Visit Diagnoses Diagnosis Actinic keratoses Actinic keratosis Multiple benign nevi Benign neoplasm of skin, site unspecified Leupp's disease Other specified dermatoses History of nonmelanoma skin cancer Personal history of other malignant neoplasm of skin History of renal transplant Kidney replaced by transplant Immunosuppression due to drug therapy documented in this encounter Care Teams Application Operations Engineer Relationship Specialty Start Date End Date Carroll Fuentes DO [address] [facility] [address] [place] [address] PCP - General 09/23/11 10/20/22 documented as of this encounter
--- OUTSIDE RECORDS SUMMARY | 2024-05-23 13:17 | XMS_ITS | Encounter Summary ---
Author Organization [facility] [place] [address] Care Team Providers Care Roof Cement And Paint Maker Name Role Phone Carroll Fuentes DO Primary Care Provider Encounter Details Date Type Department Care Team (Late st Contact Info) Description 2018 [place] [phone] Haile Lujan Social History Tobacco Use Types [...] on filedocumented in this encounter Care Teams Roof Cement And Paint Maker Relationship Specialty Start Date End Date Carroll Fuentes DO [address] [place] [address] PCP - General 09/23/11 10/20/22 documented as of this encounter
--- OUTSIDE RECORDS SUMMARY | 2024-05-23 13:17 | XMS_ITS | Encounter Summary ---
Author Organization [facility] Address [facility] [place] [address] Care Team Providers Care Correspondence Clerk Name Role Phone Alfredo Carroll MIX Primary Care Provider [phone] Reason for Visit * Reason Comments Arteriovenous Fistula avf first time acc ess * Consultation (Routine) - Closed Specialty Diagnoses / Procedures Referred By Contac t Referred To Contact Vascular Surgery Diagnoses ESRD (end stage renal disease) Sagrario Hodges, RN [address] [place] [address] [place] [address] Odalis Elias MD [facility] [place] [address] Referral ID Status Reason Start Date Expiration Date V isits Requested Visits Authorized [id number] Closed Consult Only 11/07/2018 11/07/2019 2 2 Encounter Details Date Type Department Care Team (Late st Contact Info) Description 11/29/2018 2:00 PM EDT Office [place] [address] Sepideh Forrester PA [facility] VASCULAR SURGERY [place], [place] [phone] CKD (chronic kidney disease) stage 4, GFR [...] OSH with 6 U PRBC, transferred to [facility] and emergently underwentrepair of AVF, brachial artery [...] (N) CVA ?? Cardiovascular History: (N) Previous [place] (N) Angina (N) CHF (N) Arrythmia (N) [...] of ETOH or drug abuse.Currently resides [facility] in [facility]. ?? Family Hx: Negative for clotting [...] 2.0 Mid Upper Arm Cephalic Vein, Right ?[place].(mm): 2.7 ?Thrombus: NON-OCCLUSIVE THROMBUS Antecubital Fossa Cephalic [...] EDT) Potassium 5.8(H) 3.5 - 5.0 mmol/L [place] [...] In Lab Kurt Mullins [place] [address] documented in this encounter Visit Diagnoses Diagnosis CKD (chronic kidney disease) stage 4, GFR 15-29 ml/min Chronic kidney disease, Stage IV (severe) Acute renal failure, unspecified acute renal failure type documented in this encounter Care Teams Correspondence Clerk Relationship Specialty Start Date End Date Carroll Fuentes DO [address] [place] [address] [address] [place] [address] PCP - General 09/23/11 10/20/22 documented as of this encounter
--- OUTSIDE RECORDS SUMMARY | 2024-05-23 13:17 | XMS_ITS | Encounter Summary ---
Author Organization [facility] [place] [address] Care Team Providers Care Safety Security Officer Name Role Phone AlfredoCarroll allison Primary Care Provider Encounter Details Date Type Department Care Team (Late st Contact Info) Description 12/12/2018 [place] [phone] Selma Lara Social History Tobacco Use Types [...] brother Lucas who can be reached at [phone]. Thank you, Emma * Telephone Encounter - [...] Pt not currently scheduled for appts at [facility] in mid December. ?? Once they are [...] He will likely have more visits to [facility] concerning this surgery in the following weeks closer to the 3 month followup date of December 27. Sincerely, Lucas Ram Surgery Details(Adama) Thursday December 13, 2018 AM EDT Planned Procedures PLACEMENT, AV HEMODIALYSIS GRAFT, SYNTHETIC GRAFT, UPPER EXTREMITY Performed by Mary Garay MD Main Operating Room [facility] ----- Message ----- From: Office of PANCHITO NELSON Sent: 11/23/2018 11:02 AM EDT To: Adama Ram Subject: RE: Appointment Follow-Up Question Okay, we will keep an eye on Adama's appt desk to see when he is scheduled so we will be able to notify Anand promptly. You can reach CT scheduling directly at [phone]. Thank you! ----- Message ----- From: Adama Ram Sent: 11/23/2018 10:51 AM EDT To: PANCHITO NELSON Subject: RE: Appointment Follow-Up Question This message is being sent by Lucas Ram on behalf of Adama Ram Great! I just spoke to [facility] and they also thought there was a medicare/medicaid mixup for pre-authorization. I believe he is continuing on [place] medicaid. Sincerely, Lucas Ram ----- Message ----- From: Office of PANCHITO NELSON Sent: 11/23/2018 10:45 AM EDT To: Adama Ram Subject: RE: Appointment Follow-Up Question Rustam Lucas My apologies! I misunderstood your note, I will get working on scheduling a CT scan here at [facility] shantelle day where Adama will be here [...] for moving Adama's followup head CT to [facility] back in September. I believe a 3 month followup is due in December, however, Adama is starting appointments with Vascular surgery for a new dialysis fistula, so he will likely be at [facility] several times over the next few weeks, making a shared visit possible. Adama will be in for 4 appts on WednesdayNovember 29- just 2 months. Sincerely, Lucas Ram documented in this encounter Plan of Treatment Not on file documented as of this encounter Visit Diagnoses Not on filedocumented in this encounter Care Teams Safety Security Officer Relationship Specialty Start Date End Date Carroll Fuentes DO [address] [place] [address] PCP - General 09/23/11 10/20/22 documented as of this encounter
--- OUTSIDE RECORDS SUMMARY | 2024-05-23 13:17 | XMS_ITS | Encounter Summary ---
Author Organization [place] [address] Care Team Providers Care Graphic Design Assistant Name Role Phone AlfredoCarroll allison Primary Care Provider Reason for Referral * Diagnostic Test (Routine) - Closed Specialty Diagnoses / Procedures Referred By Shashi ko Referred To Contact Radiology Diagnoses ESRD (end stage renal disease) Procedures IR Dialysis Access - Tunneled Line Munira Whiteside MD [facility] [place] [address] [place] [address] Referral ID Status Reason Start Date Expiration Date V isits Requested Visits Authorized [id number] Closed Specialty Service Requested 08/23/2018 08/23/2019 1 1 Reason for Visit * Diagnostic Test (Routine) - Closed Specialty Diagnoses / Procedures Referred By Shashi ko Referred To Contact Radiology Diagnoses ESRD (end stage renal disease) Procedures IR Dialysis Access - Tunneled Line Munira Whiteside MD [facility] [place] [address] [place] [address] Referral ID Status Reason Start Date Expiration Date V isits Requested Visits Authorized [id number] Closed Specialty Service Requested 08/23/2018 08/23/2019 1 1 Encounter Details Date Type Department Care Team (Latest Contact Info) Description 08/30/2018 1:55 PM EST - 08/30/2018 11:59 PM EST Hospital En[place] [address] Trever Boyd MD [facility] [place] [address] ESRD (end stage renal disease) Discharge Disposition: [...] Kunz RN - 08/30/2018 3:59 PM EST [facility] Vascular and Interventional Radiology Discharge Instructions for [...] is during regular office hours, please call [phone]. If it is after regular office hours, or on weekends or holidays, please call [phone] and ask to speak to the Hardboard Factory Worker webmethods consultant for Interventional Radiology. You have received [...] 1:43 PM EST [facility] Name: CHRISTY AMBROSE Date of : 1960 AGE: 58 y.o. Address: [address] [place] [address] (home) Mobile: Telephone Information: Referring Provider: Munira Whiteside REASON FOR VISIT: HD Catheter Exchange Order Questions Answers Where will study be performed? [facility] [120] Is the patient on anticoagulant [...] ml/min N18.4 ??? 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 retirement current use of immunosuppressive drug Z79.899 ??? [...] - Tunneled Line 07/30/2018 Walt Lin MD [facility] INTERVENTIONL RAD ??? KIDNEY TRANSPLANT KIDNEY TRANSPLANT / RECIPIENT/LT Procedure Date: 11/26/2002 ? ? PRO DEBRIDEMENT SUBCUTANEOUS TISSUE 20 SQCM/< Left 02/20/2016 DEBRIDEMENT SKIN AND SUBCU, HEAD/NECK performed by Miguel Angel Moreno MD at [facility] MAIN OR ??? PRO DECOMPRESS FOREARM, BRACH ART EXPLOR Left 04/06/2018 FASCIOTOMY, FOREARM, WITH BRACHIAL ARTERY EXPLORATION (WRVU 8.41) performed by Lida Peter MDat [facility] MAIN OR ??? PRO DIRECT REPAIR RUPTURED ANEURYSM, AXILLO-BRACHIAL ARM INCIS Left 04/06/2018 @REPAIR, RUPTURED AXILLARY OR BRACHIAL ARTERY ANEURYSM BY ARM INCISION (WRVU *) performed by Lida Peter MD at [facility] MAIN OR ??? PRO EXC PAROTD, TOTAL, UNILAT RAD NECK Left 02/05/2016 @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, TOTAL, WITH UNILATERAL RADICAL NECK DISSECTION performed by Miguel Angel Moreno MD at [facility] MAIN OR ??? PRO EXC SKIN MALIG 3.1-4CM FACE, FACIAL Left 02/05/2016 EXC MALIGNANT LESION, 3.1 TO 4.0CM, FACE performed by Miguel Angel Moreno MD at [facility] OR ? ? PRO EXC SKIN MALIG >4CM TRUNK, ARM, LEG 04/19/2012 EXC MALIGNANT LESION, MICHAEL > 4.0CM, TRUNK performed by SABRINA SANCHEZ at [facility] OR ??? PRO LAP, RADICAL NEPHRECTOMY Left 05/31/2017 @LAPAROSCOPY, RADICAL NEPHRECTOMY (WRVU 25.06) performed by Jax Mills MD at [facility] MAIN OR ??? PRO LIGATN ANGIOACCESS AV FISTULA Left 04/19/2018 LIGATION OR BANDING OF HEMODIALYSIS FISTULA OR GRAFT UPPER EXTREMITY (WRVU 6.25) performed by Odalis Elias MD at [facility] MAIN OR ??? PRO NEGATIVE PRESSURE WOUND THERAPY, LESS THAN OR EQUAL TO 50 SQCM Left 04/19/2018 DRESSING CHANGE (VAC ASSISTED) UP TO 50SQ.CM (WRVU 0.55) performed by Odalis Elais MD [facility] MAIN OR ??? PRO REBL VES GRAFT, UP EXTREM Left 04/06/2018 REPAIR BLOOD VESSEL WITH GRAFT OTHER THAN VEIN, UPPER EXTREMITY (WRVU 15.83) performed by Lida Peter MD at [facility] MAIN OR ??? PRO RELIEVE PRESSURE ON NERVE(S) Left 04/06/2018 (MSURG) CARPAL TUNNEL (WRVU 4.82) performed by Silviano Sparks MD at [facility] OR ??? PRO REPAIR INTERMEDIATE S/A/T/E 2.6-7.5 CM 04/19/2012 REPAIR INTERMEDIATE WOUND, (NO HANDS OR FEET) 2.6 TO 7.5CM, UPPER EXTREMITY performed by SABRINA SANCHEZ at [facility] MAIN OR ? ? PRO REPAIR INTERMEDIATE S/A/T/E > 30.0 CM Left 04/14/2018 REPAIR INTERMEDIATE WOUND, (NO HANDS OR FEET) >30.0CM, UPPER EXTREMITY (WRVU 5) performed by Yimi Easton MD at [facility] MAIN OR ??? PRO REVISE MEDIAN N/CARPAL TUNNEL SURG Left 04/06/2018 MEDIAN NERVE DECOMPRESSION (CARPAL TUNNEL RELEASE) (WRVU 4.97) performed by Lida Peter MD [facility] MAIN OR ? ? PRO SPLIT GRFT TRUNK, ARM, LEG <100SQCM Left 04/26/2018 SPLIT THICK SKIN GRAFT,100 SQ CM OR LESS, ARMS (WRVU 9.9) performed by Silviano Sparks MD at [facility] MAIN OR ? ? PRO SPLIT GRFT, HEAD, FAC, HAND, FEET <100SQCM N/A 02/20/2016 SPLIT THICKNESS SKIN SPLIT GRAFT,100SQ CM OR LESS, NECK performed by Miguel Angel Moreno MD at [facility] MAIN OR ??? PRO SPLIT GRFT, TRUNK, ARM, LEG EA 100SQCM N/A 04/26/2018 EA.ADDITIONAL 100SQ.CM STSG (WRVU 1.72) performed by Silviano Sparks MD at [facility] MAIN OR ??? PRO UPPER GI ENDOSCOPY, BIOPSY N/A 05/13/2017 EGD WITH BIOPSY (WRVU 2.49) performed by Aditya Barrera MD at [facility] ENDOSCOPY ??? PRO VASCULAR SURGERY PROCEDURE UNLIST Left 11/20/2015 LIGATION\REPAIR AV FISTULA performed by Camilo Ireland MD at [facility] MAIN OR ??? PRO VASCULAR SURGERY PROCEDURE UNLIST Left 11/20/2015 EXCISION VEIN FROM HAND performed by Camilo Ireland MD at [facility] MAIN OR ??? US RENAL TRANSPLANT BIOPSY 12/31/2010 ??? 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 ECF resident. [facility] placed 07/30/2018. The retention cuff is [...] N18.4 ??? 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 intermediate accountant [...] - Tunneled Line 07/30/2018 Walt Lin MD [facility] INTERVENTIONL RAD ??? KIDNEY TRANSPLANT KIDNEY TRANSPLANT / RECIPIENT/LT Procedure Date: 11/26/2002 ? ? PRO DEBRIDEMENT SUBCUTANEOUS TISSUE 20 SQCM/< Left 02/20/2016 DEBRIDEMENT SKIN AND SUBCU, HEAD/NECK performed by Miguel Angel Moreno MD at [facility] MAIN OR ??? PRO DECOMPRESS FOREARM, BRACH ART EXPLOR Left 04/06/2018 FASCIOTOMY, FOREARM, WITH BRACHIAL ARTERY EXPLORATION (WRVU 8.41) performed by Lida Peter, [facility] MAIN OR ??? PRO DIRECT REPAIR RUPTURED ANEURYSM, AXILLO-BRACHIAL ARM INCIS Left 04/06/2018 @REPAIR, RUPTURED AXILLARY OR BRACHIAL ARTERY ANEURYSM BY ARM INCISION (WRVU *) performed by Lida Peter MD at [facility] MAIN OR ??? PRO EXC PAROTD, TOTAL, UNILAT RAD NECK Left 02/05/2016 @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, TOTAL, WITH UNILATERAL RADICAL NECK DISSECTION performed by Miguel Angel Moreno MD at [facility] MAIN OR ??? PRO EXC SKIN MALIG 3.1-4CM FACE, FACIAL Left 02/05/2016 EXC MALIGNANT LESION, 3.1 TO 4.0CM, FACE performed by Miguel Angel Moreno MD at [facility] MAIN OR ? ? PRO EXC SKIN MALIG >4CM TRUNK, ARM, LEG 04/19/2012 EXC MALIGNANT LESION, MICHAEL > 4.0CM, TRUNK performed by SABRINA SANCHEZ at [facility] MAIN OR ??? PRO LAP, RADICAL NEPHRECTOMY Left 05/31/2017 @LAPAROSCOPY, RADICAL NEPHRECTOMY (WRVU 25.06) performed by Jax Mills MD at [facility] OR ??? PRO LIGATN ANGIOACCESS AV FISTULA Left 04/19/2018 LIGATION OR BANDING OF HEMODIALYSIS FISTULA OR GRAFT UPPER EXTREMITY (WRVU 6.25) performed by Odalis Elias MD at [facility] MAIN OR ??? PRO NEGATIVE PRESSURE WOUND THERAPY, LESS THAN OR EQUAL TO 50 SQCM Left 04/19/2018 DRESSING CHANGE (VAC ASSISTED) UP TO 50SQ.CM (WRVU 0.55) performed by Odalis Elias MD [facility] MAIN OR ??? PRO REBL VES GRAFT, UP EXTREM Left 04/06/2018 REPAIR BLOOD VESSEL WITH GRAFT OTHER THAN VEIN, UPPER EXTREMITY (WRVU 15.83) performed by Lida Peter MD at [facility] OR ??? PRO RELIEVE PRESSURE ON NERVE(S) Left 04/06/2018 (MSURG) CARPAL TUNNEL (WRVU 4.82) performed by Silviano Sparks MD at [facility] OR ??? PRO REPAIR INTERMEDIATE S/A/T/E 2.6-7.5 CM 04/19/2012 REPAIR INTERMEDIATE WOUND, (NO HANDS OR FEET) 2.6 TO 7.5CM, UPPER EXTREMITY performed by SABRINA SANCHEZ at [facility] MAIN OR ? ? PRO REPAIR INTERMEDIATE S/A/T/E > 30.0 CM Left 04/14/2018 REPAIR INTERMEDIATE WOUND, (NO HANDS OR FEET) >30.0CM, UPPER EXTREMITY (WRVU 5) performed by Yimi Easton MD at [facility] MAIN OR ??? PRO REVISE MEDIAN N/CARPAL TUNNEL SURG Left 04/06/2018 MEDIAN NERVE DECOMPRESSION (CARPAL TUNNEL RELEASE) (WRVU 4.97) performed by Lida Peter MD [facility] MAIN OR ? ? PRO SPLIT GRFT TRUNK, ARM, LEG <100SQCM Left 04/26/2018 SPLIT THICK SKIN GRAFT,100 SQ CM OR LESS, ARMS (WRVU 9.9) performed by Silviano Sparks MD at [facility] MAIN OR ? ? PRO SPLIT GRFT, HEAD, FAC, HAND, FEET <100SQCM N/A 02/20/2016 SPLIT THICKNESS SKIN SPLIT GRAFT,100SQ CM OR LESS, NECK performed by Miguel Angel Moreno MD at [facility] MAIN OR ??? PRO SPLIT GRFT, TRUNK, ARM, LEG EA 100SQCM N/A 04/26/2018 EA.ADDITIONAL 100SQ.CM STSG (WRVU 1.72) performed by Silviano Sparks MD at [facility] MAIN OR ??? PRO UPPER GI ENDOSCOPY, BIOPSY N/A 05/13/2017 EGD WITH BIOPSY (WRVU 2.49) performed by Aditya Barrera MD at [facility] ENDOSCOPY ??? PRO VASCULAR SURGERY PROCEDURE UNLIST Left 11/20/2015 LIGATION\REPAIR AV FISTULA performed by Camilo Ireland MD at [facility] MAIN OR ??? PRO VASCULAR SURGERY PROCEDURE UNLIST Left 11/20/2015 EXCISION VEIN FROM HAND performed by Camilo Ireland MD at [facility] MAIN OR ??? US RENAL TRANSPLANT BIOPSY 12/31/2010 ??? US RENAL TRANSPLANT RIGHT Right 06/04/2018 US Renal Transplant Right 06/04/2018 [facility] RAD ULTRASOUND Medications: Current Outpatient [...] Not on file Occupational History ??? 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 ECF resident. [facility] placed 07/30/2018. The retention cuff is [...] <5cc. Complications: ??No immediate Trever Boyd MD [facility] IR ORDERABLES documented in this [...] mg documented in this encounter Care Teams Graphic Design Assistant Relationship Specialty Start Date End Date Carroll Fuentes DO [address] [place] [address] PCP - General 09/23/11 10/20/22 documented as of this encounter
--- OUTSIDE RECORDS SUMMARY | 2024-05-23 13:17 | XMS_ITS | Encounter Summary ---
Author Organization [facility] [place] [address] Care Team Providers Care Nurse'S Assistant Name Role Phone Carroll Fuentes DO Primary Care Provider [phone] Encounter Details Date Type Department Care Team (Late st Contact Info) Description 11/07/2018 Orders Only Nephrology [place] [address] Sagrario Hodges RN ESRD (end stage renal [...] Text Report Department: Vascular Surgery Lab Patient: [id number] (CHRISTY AMBROSE) CPT: G0365 ICD10: Z01.818;N18.6 Referring [...] Hodges RN VASCULAR ORDERABLES Performing Organization Address City/State/[facility] Co de Phone Number [facility] documented in this encounter Visit Diagnoses Diagnosis ESRD (end stage renal disease) End stage renal disease documented in this encounter Care Teams Nurse'S Assistant Relationship Specialty Start Date End Date Carroll Fuentes DO [address] [place] [address] PCP - General 09/23/11 10/20/22 documented as of this encounter
--- OUTSIDE RECORDS SUMMARY | 2024-05-23 13:17 | XMS_ITS | Encounter Summary ---
Author Organization [facility] Address [facility] [place] [address] Care Team Providers Care Sound Installation Worker Name Role Phone Carroll Fuentes Primary Care Provider Reason for Referral * Diagnostic Test (Routine) - Closed Specialty Diagnoses / Procedures Referred By Contac t Referred To Contact Radiology Diagnoses SDH (subdural hematoma) Procedures CT Head wo Contrast (Generic) Dmitriy Hoffman [place] [facility] [place] [address] [facility] [place] [address] Referral ID Status Reason Start Date Expiration Date V isits Requested Visits Authorized [id number] Closed Specialty Service Requested 08/09/2018 11/07/2018 1 1 Reason for Visit * Diagnostic Test (Routine) - Closed Specialty Diagnoses / Procedures Referred By Contac t Referred To Contact Radiology Diagnoses SDH (subdural hematoma) Procedures CT Head wo Contrast (Generic) Dmitriy Hoffman [place] [facility] [place] [address] [facility] [place] [address] Referral ID Status Reason Start Date Expiration Date V isits Requested Visits Authorized [id number] Closed Specialty Service Requested 08/09/2018 11/07/2018 1 1 Encounter Details Date Type Department Care Team (Latest Contact Info) Description 08/18/2018 1:21 PM EST - 08/18/2018 11:59 PM EST Hospital Encounter CT Scan at [facility] [place] [place] [address] Dmitriy Hoffman [place] [address] SDH (subdural hematoma) Discharge Disposition: Home Social [...] the number below. ? Electronically signed by: Marcia Mathew [facility] ([phone]), at 08/18/2018 5:28 PM Narrative 08/18/2018 5:28 PM EST EXAMINATION: CT [...] hemorrhage documented in this encounter Care Teams Sound Installation Worker Relationship Specialty Start Date End Date Carroll Fuentes DO [address] [facility] [place] [address] PCP - General 09/23/11 10/20/22 documented as of this encounter
--- OUTSIDE RECORDS SUMMARY | 2024-05-23 13:17 | XMS_ITS | Encounter Summary ---
Author Organization [facility] Address [facility] [place] [address] Care Team Providers Care Rubber Trimmer Name Role Phone AlfredoCarroll allison Primary Care Provider Encounter Details Date Type Department Care Team (Late st Contact Info) Description 09/07/2018 [place] [phone] Anabella Norwood Social History Tobacco Use Types [...] 12/09/2018 9:30 AM EDT Darrian called from [facility] did not receive CT order refaxed to [phone] * Telephone Encounter - Odalis Jacob - 12/09/2018 8:47 AM EDT Called [facility] to inquire if CT completed = LM Postpone 1w * Telephone Encounter - Anabella [place]wood - 11/23/2018 9:[address] order faxed to [facility] to be scheduled and pushed back for [...] Jacob - 09/28/2018 9:39 AM EDT Called [facility] to inquire about imaging being pushed from [...] Order changed to [facility] Auth: [id number] Valid: 08/29-11/27 Faxed to [facility] * Telephone Encounter - Anabella Norwood - 09/12/2018 1:34 PM EST Called and LM for Dania in Dr Mensah office for status update on updating the prior auth location.Dania's extension is [phone] * Telephone Encounter - Anabella Norwood - 09/08/2018 3:13 PM EST Called to initiate prior auth with [employer]. CPT code is already authed and will not be changed as the ordering doc is not in [facility], that department needs to call and change the location. Called Dr Dolan's office, as indicated on the order, informed them of what was requested. Dania tocall us back once the location on the order has been changed through [employer] and will provide auth number and valid dates. Once info is received, send order to [facility] with the following scheduling guidelines: Adama Estrada, 7-11am in [facility], other times available on Sep. * Telephone Encounter - Anabella Norwood - 09/08/2018 9:43 AM EST Called and LM for brother Lucas to call back to inform him of external imaging. Confirm [facility] location to have imaging completed. Once [...] not required Best number to reach caller: [phone] Reason for call: pts brother called asking [...] on filedocumented in this encounter Care Teams Rubber Trimmer Relationship Specialty Start Date End Date Carroll Fuentes DO [address] [place] [address] PCP - General 09/23/11 10/20/22 documented as of this encounter
--- OUTSIDE RECORDS SUMMARY | 2024-05-23 13:17 | XMS_ITS | Encounter Summary ---
Author Organization [facility] Address [facility] [place] [address] Care Team Providers Care Test Engine Operator Name Role Phone Carroll Fuentes DO Primary Care Provider [phone] Encounter Details Date Type Department Care Team (Late st Contact Info) Description 09/27/2018 Ancillary Procedure Radiology Library at [facility] [place] [id number] Tim Torres MD [facility] [place] [id number] Social History Tobacco Use Types Packs/Day Years [...] CT Head (09/27/2018 12:00 AM EDT) Narrative [facility] - 09/28/2018 8:13 PM EDT This exam is auto-finalizing. It's purpose is for storage only. Tim Torres MD IM FILM LIBRARY ORD ERABLES [place], [place] documented in this encounter Visit Diagnoses Not on filedocumented in this encounter Care Teams Test Engine Operator Relationship Specialty Start Date End Date Carroll Fuentes DO [address] [place] [address] [address] [place] [address] PCP - General 09/23/11 10/20/22 documented as of this encounter
--- OUTSIDE RECORDS SUMMARY | 2024-05-23 13:17 | XMS_ITS | Encounter Summary ---
Author Organization [facility] Address [facility] [place] [address] Care Team Providers Care Trim Machine Adjuster Name Role Phone Carroll Fuentes DO Primary Care Provider Encounter Details Date Type Department Care Team (Late st Contact Info) Description 09/06/2018 Orders Only [place] [address] Giovani Molina MBBS [facility] [place] [address] Social History Tobacco Use Types Packs/Day Years [...] on filedocumented in this encounter Care Teams Trim Machine Adjuster Relationship Specialty Start Date End Date Carroll Fuentes DO [address] [place] [address] PCP - General 09/23/11 10/20/22 documented as of this encounter
--- OUTSIDE RECORDS SUMMARY | 2024-05-23 13:17 | XMS_ITS | Encounter Summary ---
Author Organization [facility] [address] Care Team Providers Care Bioinformatics Team Member Name Role Phone AlfredoCarroll allison Primary Care Provider Reason for Visit * Auth/Cert Specialty Diagnoses / Procedures Referred By Shashi ko Referred To Contact Diagnoses ESRD on dialysis Procedures PRO CREAT AV FISTULA, NON-AUTOGENOUS GRAFT PLACEMENT, AV HEMODIALYSIS GRAFT, SYNTHETIC GRAFT, UPPER EXTREMITY (WRVU 12.03) Referral ID Status Reason Start Date Expiration Date Visits Re quested Visits Authorized [id number] 1 1 Encounter Details Date Type Department Care Team (Latest Contact Info) Description 12/13/2018 8:43 AM EDT - 12/14/2018 4:50 PM EDT Hospital Encounter [address] [place] [id number] Anna Shah MD [address] [place] [id number] Hyperkalemia; End stage chronic kidney disease Discharge [...] GFR 15-29 ml/min ??? 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 H/O [...] Pt will resume his regular dialysis at [facility] on Wednesday12/16/2018 to resume normal schedule. Most [...] Studies: none Discharge Conditions/Prognosis: Good Discharge to: [facility] in [facility]. Discharge Medications: Your Medications New [...] For any problems or questions please call [phone] For issues on weeknights after 5pm and weekends please call [phone] and ask for the Vascular Fellow it consulting director. YEIMY Fallon, director of reimbursement Nurse Clinician General Instructions None Future Appointments and Orders Future Orders Complete By Expires AVF/Established Access Evaluation [VAS61 Custom] 01/12/2019 03/15/2019 Process Instructions: There is no in-house vascular asset availability leader available on weeknights (5pm-8am), weekends, or holidays. IF THIS IS A REQUEST FOR AN EMERGENT STUDY DURING THOSE HOURS, please have the senior provider responsible for the patient page the Vascular Surgery Fellow/Senior Resident it consulting director to discuss options. Scheduling Instructions: Questions: Laterality: Right Which extremity?: Upper Indication for study/signs & symptoms: s/p Right brachioaxillary graft with 7 mm - 4 mm taperedAccuseal (12/13/18) Question to be answered: ?maturation At which DH location will this be performed?: [facility] AVF/Established Access Evaluation [VAS61 Custom] 01/13/2019 12/15/2019 Process Instructions: There is no in-house vascular asset availability leader available on weeknights (5pm-8am), weekends, or holidays. IF THIS IS A REQUEST FOR AN EMERGENT STUDY DURING THOSE HOURS, please have the senior provider responsible for the patient page the Vascular Surgery Fellow/Senior Resident it consulting director to discuss options. Scheduling Instructions: Questions: Laterality: Right Which extremity?: Upper Indication for study/signs & symptoms: s/p Right brachioaxillary graft with 7 mm - 4 mm taperedAccuseal (12/13/18) Question to be answered: patency At which DH location will this be performed?: [facility] Discharge References/Attachments: Discharge References/Attachments None Electronically Signed [...] For any problems or questions please call [phone] For issues on weeknights after 5pm and weekends please call [phone] and ask for the Vascular Fellow it consulting director. YEIMY Fallon, director of reimbursement Nurse Clinician documented in this encounter Medications [...] 12/14/2018 4:50 PM EDT Office of Care Management/Weed Cutter Name: Christy Ram Presenting Issue: Outpatient Dialysis Update Notified [facility] HD unit that patient is scheduled for discharge yesterday. The dialysis unit is ready for the patient on Wednesday at 7:45am. The patient will have a schedule of mon/wed/fri at 7:45. Plan: Discharge Summary and last acute dialysis records will be faxed to the filler shredder helper upon discharge. This office will be available to the patient, Riding Instructor-RN and Towel Weaver for further assistance. Dialysis Unit Address: [address] [address] \ ILDA WONG RN Weed Cutter * Tana Briones, JULIAN - 12/14/2018 4:22 [...] 11/29/18: 84.2 kg (185 lb 9.6 oz). [place] Body Weight (IBW): [place] body weight: 73 kg (160 lb 15 [...] in July. During his July admission this film writer saw him and reviewed renal diet information with him. Pt reports that he currently lives in a usp where he does not always have options in his meals, but tries to mostly make bianchi choices and eat smaller amounts of foods that he knows are high in potassium. Reviewed high potassium foods again with him and provided him with a list of potassium content from the nutrition care manual. JERICHO LORENZO Beeper #: [id number] * Oliver Link RN - 12/14/2018 4:13 [...] Transport initiated/confirmed: Spoke with Maria E from [facility] who confirmed a food mobile driver will arrive to pick patient up at discharge today from the Main entrance at 4:00pm en route to home address. * Britany Stuart RN - 12/14/2018 2:15 PM EDT The patient/phone representative has been provided a list of Home Health Agencies/DME vendors which servetheir preferred geographic area. A letter describing our affiliations was reviewed with them and they were educated about their right to choose where referrals are placed. Patient requests referral back to: [facility] for HD. Schedule is MW. Next HD s/b Wednesday. Expected date of discharge: 12/14. Referral routed to the Weed Cutter for matching with agency/vendor and to provide [...] ESRD admitted in [facility] s/p AVG in [facility] now hyperkalemic at 7.2. IV was [...] Thank you! Angely Biswas RN Life Safety/ICU [phone] or pgr [phone] * Padmini Ruiz RN - 12/13/2018 4:24 PM EDT CM asked by Dr. Jhonny Solitario to arrange transportation home for this pt. Pt is post operative today for: Right brachioaxillary graft with 7 mm - 4 mm tapered Accuseal. Pt lives at the [facility], a Residential care facility in [facility]. I spoke with RA Guadalupe at [facility] who informed me that pt is transported by [facility] for all appointments and dialysis . Pt is picked up for dialysis at 7:30 am. I called [facility] at . They will send a food mobile driver by the name of Junito to the Main Entrance of [facility] this evening at 18:30. I will update pt's nurse Litzy and Anayeli via phone calls. Dr. Solitario aware. Padmini Ruiz RN 4 Drew Riding Instructor Pager: [phone] * Megan Eugene RN - [...] education level: None Occupational History ??? 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 [...] transplant (transplant on 11/26/02). Outpatient HD at [facility]. - Access: Right IJ TDC (right [...] any questions. 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 [...] - Tunneled Line 07/30/2018 Walt Lin MD [facility] INTERVENTIONL RAD ??? IR DIALYSIS ACCESS - TUNNELED LINE 08/30/2018 IR Dialysis Access - Tunneled Line 08/30/2018 Erwin Simon APRN [facility] INTERVENTIONL RAD ??? KIDNEY TRANSPLANT KIDNEY TRANSPLANT / RECIPIENT/LT Procedure Date: 11/26/2002 ? ? PRO DEBRIDEMENT SUBCUTANEOUS TISSUE 20 SQCM/< Left 02/20/2016 DEBRIDEMENT SKIN AND SUBCU, HEAD/NECK performed by Miguel Angel Moreno MD at [facility] MAIN OR ??? PRO DECOMPRESS FOREARM, BRACH [...] 6.25) performed by Odalis Elias MD at [facility] MAIN OR ??? PRO NEGATIVE PRESSURE WOUND THERAPY, LESS THAN OR EQUAL TO 50 SQCM Left 04/19/2018 DRESSING CHANGE (VAC ASSISTED) UP TO 50SQ.CM (WRVU 0.55) performed by Odalis Elias MD [facility] OR ??? PRO REBL VES GRAFT, UP EXTREM Left 04/06/2018 REPAIR BLOOD VESSEL WITH GRAFT OTHER THAN VEIN, UPPER EXTREMITY (WRVU 15.83) performed by Lida Peter MD at [facility] MAIN OR ??? PRO RELIEVE PRESSURE ON NERVE(S) Left 04/06/2018 (MSURG) CARPAL TUNNEL (WRVU 4.82) performed by Silviano Sparks MD at [facility] MAIN OR ??? PRO REPAIR INTERMEDIATE S/A/T/E 2.6-7.5 CM 04/19/2012 REPAIR INTERMEDIATE WOUND, (NO HANDS OR FEET) 2.6 TO 7.5CM, UPPER EXTREMITY performed by SABRINA SANCHEZ at [facility] OR ? ? PRO REPAIR INTERMEDIATE S/A/T/E > 30.0 CM Left 04/14/2018 REPAIR INTERMEDIATE WOUND, (NO HANDS OR FEET) >30.0CM, UPPER EXTREMITY (WRVU 5) performed by Yimi Easton MD at [facility] MAIN OR ??? PRO REVISE MEDIAN N/CARPAL TUNNEL SURG Left 04/06/2018 MEDIAN NERVE DECOMPRESSION (CARPAL TUNNEL RELEASE) (WRVU 4.97) performed by Lida Peter MD [facility] OR ? ? PRO SPLIT GRFT TRUNK, ARM, LEG <100SQCM Left 04/26/2018 SPLIT THICK SKIN GRAFT,100 SQ CM OR LESS, ARMS (WRVU 9.9) performed by Silviano Sparks MD at [facility] MAIN OR ? ? PRO SPLIT GRFT, HEAD, FAC, HAND, FEET <100SQCM N/A 02/20/2016 SPLIT THICKNESS SKIN SPLIT GRAFT,100SQ CM OR LESS, NECK performed by Miguel Angel Moreno MD at [facility] MAIN OR ??? PRO SPLIT GRFT, TRUNK, ARM, LEG EA 100SQCM N/A 04/26/2018 EA.ADDITIONAL 100SQ.CM STSG (WRVU 1.72) performed by Silviano Sparks MD at [facility] MAIN OR ??? PRO UPPER GI ENDOSCOPY, BIOPSY N/A 05/13/2017 EGD WITH BIOPSY (WRVU 2.49) performed by Aditya Barrera MD at [facility] ENDOSCOPY ??? PRO VASCULAR SURGERY PROCEDURE UNLIST Left 11/20/2015 LIGATION\REPAIR AV FISTULA performed by Camilo Ireland MD at [facility] MAIN OR ??? PRO VASCULAR SURGERY PROCEDURE UNLIST Left 11/20/2015 EXCISION VEIN FROM HAND performed by Camilo Ireland MD at [facility] MAIN OR ??? US RENAL TRANSPLANT BIOPSY 12/31/2010 ??? US RENAL TRANSPLANT RIGHT Right 06/04/2018 US Renal Transplant Right 06/04/2018 [facility] RAD ULTRASOUND Family History Problem Relation Age [...] transplant (transplant on 11/26/02). Outpatient HD at [facility]. - Access: Right IJ TDC (right [...] Shah MD - 12/13/2018 12:17 PM EDT [facility] Operative Note Patient Name: Christy Ram : 1960 MR#: [id number] Case Date: 12/13/2018 Date of Operation: 12/13/2018. [...] Implant Name Type Inv. Item Serial No. Retail Service Technician Lot No. LRB No. Used Action GRAFT,ACUSEAL,TPR,[id number] ([id number]) - [id number] IMPLANTS GRAFT,ACUSEAL,TPR,[id number] [employer] - WL [...] Access Evaluation (12/29/2018 9:16 AM EDT) Pathologist [facility] Text Report Department: Vascular Surgery Lab Patient: [id number] (ARNOL, CHRISTY) CPT: 36232 ICD10: N18.6 Referring Physician: ANNA SHAH ?? [...] ORDERABL ES [facility] [place] [address] * (ABNORMAL) Basic Metabolic Panel (non-fasting) (12/14/2018 [...] of body mass or the acutely ill. http://Docebo/[facility] eGFR 13(L) >=60 mL/min/1. 73 m?? [facility] Comment: The eGFR was calculated using the CKD-EPI equation. As with all creatinine based estimates of kidney function, eGFR values calculated with the CKD-EPI equation are not accurate in patients with acute kidney failure, extremes of body mass or the acutely ill. http://Docebo/[facility] Blood specimen (specimen) 12/14/2018 4:39 AM EDT 12/14/2018 5:01 AM EDT Narrative Resulting Agency Comment Spec In Lab Anna Shah MD CHEMISTRY ORDERABL ES [facility] [place] [address] * POCT Glucose (12/13/2018 8:32 PM EDT) Glucose, POC 134 65 - 199 mg/dL [facility] Comment: Supplemental ranges: <140 mg/dL before meals <180 mg/dL all other times of the day Blood specimen (specimen) 12/13/2018 8:32 PM EDT 12/13/2018 8:32 PM EDT Anna Shah MD POINT OF CARE TEST ORDERABLES [facility] [place] [address] * (ABNORMAL) POCT Glucose (12/13/2018 7:51 PM EDT) Glucose, POC 56(L) 65 - 199 mg/dL [facility] Comment: Supplemental ranges: <140 mg/dL before meals <180 mg/dL all other times of the day Blood specimen (specimen) 12/13/2018 7:51 PM EDT 12/13/2018 7:51 PM EDT Anna Shah MD POINT OF CARE TEST ORDERABLES [facility] [place] [address] * (ABNORMAL) POCT Glucose (12/13/2018 7:20 PM EDT) Glucose, POC 54(Critica l) 65 - 199 mg/dL [facility] Comment: Supplemental ranges: <140 mg/dL before meals <180 mg/dL all other times of the day Blood specimen (specimen) 12/13/2018 7:20 PM EDT 12/13/2018 7:20 PM EDT Anna Shah MD POINT OF CARE TEST ORDERABLES Performing Organization Address [facility] Co de Phone Number [facility] [place] [address] * (ABNORMAL) POCT Glucose (12/13/2018 7:18 PM EDT) Glucose, POC 38(Critica l) 65 - 199 mg/dL [facility] Comment: Supplemental ranges: <140 mg/dL before meals <180 mg/dL all other times of the day Blood specimen (specimen) 12/13/2018 7:18 PM EDT 12/13/2018 7:18 PM EDT Anna Shah MD POINT OF CARE TEST ORDERABLES [facility] [place] [address] * (ABNORMAL) Hemogram (12/13/2018 6:32 PM EDT) [...] HOSPITAL LABORATORY Platelet 172 145 - 357 x10(3)/[facility] LABORATORY RDW Standard Deviation 59.7(H) 36.0 - 45.0 [facility] LABORATORY RDW coefficient of variation 17.5(H) 11.4 - 13.8 % [facility] Mean Platelet Volume 9.1 7.6 - 12.9 [facility] LABORATORY NRBC% auto 0.0 % [facility] NRBC Absolute 0.000 0.000 - 0.000 x10(3)/ L [facility] Blood specimen (specimen) 12/13/2018 6:32 PM EDT 12/13/2018 7:33 PM EDT Narrative Resulting Agency Comment Spec In Lab Carroll Baires MD HEMATOLOGY ORDERABLE S [facility] [place] [address] * (ABNORMAL) Basic Metabolic Panel (non-fasting) (12/13/2018 6:16 PM EDT) Pathologist [facility] Glucose 123 65 - 199 mg/dL [facility] Comment: Called by: dominik, Read [...] of body mass or the acutely ill. http://Docebo/[facility]nk[facility] eGFR 9(L) >=60 mL/min/1. 73 m?? [facility] Comment: The eGFR was calculated using the CKD-EPI equation. As with all creatinine based estimates of kidney function, eGFR values calculated with the CKD-EPI equation are not accurate in patients with acute kidney failure, extremes of body mass or the acutely ill. http://Docebo/[facility] Blood specimen (specimen) 12/13/2018 6:16 PM EDT 12/13/2018 6:23 PM EDT Narrative Resulting Agency Comment Spec In Lab Carroll Baires MD CHEMISTRY ORDERABLES [facility] [place] [address] * Hepatitis B Surface Antigen (12/13/2018 6:16 PM EDT) Hepatitis B Surface Antigen Negative Negative [facility] Blood specimen (specimen) 12/13/2018 6:16 PM EDT 12/13/2018 6:23 PM EDT Narrative Resulting Agency Comment Spec In Lab Carroll Baires MD CHEMISTRY ORDERABLES Performing Organization Address [facility] Co de Phone Number [facility] [place] [address] * EKG 12 Lead (12/13/2018 5:46 PM EDT) Pathologist [facility] Ventricular rate 46 BPM MUSE SYSTEM Atrial Rate 46 BPM MUSE SYSTEM P-R Interval 174 ms MUSE SYSTEM QRS Duration 100 ms MUSE SYSTEM Q-T Interval 468 ms MUSE SYSTEM QTC Calculated (Bezet) 409 ms MUSE SYSTEM Calculated P [place] 71 degrees MUSE SYSTEM Calculated R [place] 78 degrees MUSE SYSTEM Calculated T [place] 51 degrees MUSE SYSTEM INTERPRETATION Marked sinus bradycardia Abnormal ECG When compared with ECG of 03-AUG-2018 19:06, Nonspecific T wave abnormality no longer evident in Inferior leads QT has shortened Confirmed by MD Delores, Tim ([id number]) on 12/13/2018 6:56:25 PM MUSE SYSTEM 12/13/2018 5:46 PM EDT 12/13/2018 6:56 PM EDT Anna Shah MD ECG ORDERABLES Performing Organization Address [facility] Co de Phone Number MUSE SYSTEM * (ABNORMAL) Potassium (12/13/2018 3:40 PM EDT) Pathologist [facility] Potassium 7.2(Criti constance) 3.5 - 5.0 mmol/L [...] ORDERABL ES [facility] [place] [address] documented in this encounter Visit Diagnoses Diagnosis [...] Warning Vesicant/Irritant Medication Patient must be on cardiac sonographer when receiving calcium; calcium can exacerbate digoxin [...] Warning Vesicant/Irritant Medication Patient must be on cardiac sonographer when receiving calcium; calcium can exacerbate digoxin [...] Asim Meneses RN)[phone] (Given - Provider: Rachel Zyaas, SAVANNA) sodium chloride 0.9 % flush 5 [...] Routine documented in this encounter Care Teams Bioinformatics Team Member Relationship Specialty Start Date End Date Carroll Fuentes DO [address] [place] [address] PCP - General 09/23/11 10/20/22 documented as of this encounter
--- OUTSIDE RECORDS SUMMARY | 2024-05-23 13:17 | XMS_ITS | Encounter Summary ---
Author [place] [address] Care Team Providers Care Freelance Court Reporter Name Role Phone Carroll Fuentes DO Primary Care Provider [phone] Encounter Details Date Type Department Care Team (Late st Contact Info) Description 11/08/2018 Orders Only Nephrology [place] [address] Sagrario Hodges, RN Social History Tobacco Use [...] on filedocumented in this encounter Care Teams Freelance Court Reporter Relationship Specialty Start Date End Date Carroll Fuentes DO [address] [place] [address] PCP - General 09/23/11 10/20/22 documented as of this encounter
--- OUTSIDE RECORDS SUMMARY | 2024-05-23 13:17 | XMS_ITS | Encounter Summary ---
Author Organization [facility] Address [facility] [place] [address] Care Team Providers Care Manager Psychiatry Name Role Phone Carroll Fuentes DO Primary Care Provider Reason for Referral * Consultation (Routine) - Closed Specialty Diagnoses / Procedures Referred By Shashi ko Referred To Contact Vascular Surgery Diagnoses ESRD (end stage renal disease) Sagrario Hodges, RN [address] [place] [address] [place] [address] Odalis Elias MD [facility] [place] [address] Referral ID Status Reason Start Date Expiration Date V isits Requested Visits Authorized [id number] Closed Consult Only 11/07/2018 11/07/2019 2 2 Encounter Details Date Type Department Care Team (Late st Contact Info) Description 11/07/2018 Orders Only [place] [address] Sagrario Hodges, RN ESRD (end stage renal [...] disease documented in this encounter Care Teams Manager Psychiatry Relationship Specialty Start Date End Date Carroll Fuentes DO [address] [place] [address] [address] [facility] [address] [place] [address] PCP - General 09/23/11 10/20/22 documented as of this encounter
--- OUTSIDE RECORDS SUMMARY | 2024-05-23 13:17 | XMS_ITS | Encounter Summary ---
Author Organization [facility] Address [facility] [place] [address] Care Team Providers Care Shank Carrier Name Role Phone AlfredoCarroll geiger Primary Care Provider [phone] Encounter Details Date Type Department Care Team (Late st Contact Info) Description 11/22/2018 Telephone Solid [place] [id number] Tessa Flores [facility]W [facility] [place] [address] Social History Tobacco Use Types Packs/Day Years [...] received a fax from Autumn Swanson from [employer] in [place], [place] asking that Dr. Hawkins verify that [...] on filedocumented in this encounter Care Teams Shank Carrier Relationship Specialty Start Date End Date Carroll Fuentes DO [address] [place] [address] PCP - General 09/23/11 10/20/22 documented as of this encounter
--- OUTSIDE RECORDS SUMMARY | 2024-05-23 13:17 | XMS_ITS | Encounter Summary ---
Author Organization [facility] Address [facility] [place] [address] Care Team Providers Care Commodity Analyst Name Role Phone AlfredoCarroll allison Primary Care Provider [phone] Reason for Visit * Auth/Cert Specialty Diagnoses / Procedures Referred By Shashi ko Referred To Contact Diagnoses ESRD on dialysis Procedures PRO CREAT AV FISTULA, NON-AUTOGENOUS GRAFT PLACEMENT, AV HEMODIALYSIS GRAFT, SYNTHETIC GRAFT, UPPER EXTREMITY (WRVU 12.03) Referral ID Status Reason Start Date Expiration Date Visits Re quested Visits Authorized [id number] 1 1 Encounter Details Date Type Department Care Team (Late st Contact Info) Description 12/13/2018 10:09 AM EDT Anesthesia Event [place] [address] Sven Ramires MD [facility] [place] [address] Anesthesia Record Procedure Summary Procedure Name Responsible [...] 08/30/18; 1539; internal jugular vein, right; (14.5f/24cm); ([facility] IR); Not present upon assessment (lot#[id number]); 01/07/21; 1239 08/30/18 1539 by Danette Kunz RN 01/07/21 1239 by Carlos Alberto Butler RN Hemodialysis AV Access Device - Single Lumen 12/13/18; graft; upper arm, right; hemodialysis; Placed in OR, present on arrival to PACU 12/13 12:01; 11/05/21; 1436 12/13/18 0000 by Patty Vargas RN 11/05/21 1436 by Wilfredo Cuenca RN (RETIRED) Peripheral IV Line - Single Lumen 12/13/18; 0955; [id number] catheter system; 20 gauge; 12/13/18; 1709 12/13/18 [...] Procedure Summary Date: 12/13/18 Room / Location: [facility] OR [address] [place] [address] MAIN OR Anesthesia Start: 1009 Anesthesia Stop: Procedure: PLACEMENT, AV HEMODIALYSIS GRAFT, SYNTHETIC GRAFT, UPPER EXTREMITY (WRVU 12.03) (Right Arm) Diagnosis: (ESRD on dialysis) Surgeon: Mary Garay MD Responsible Provider: Sven Ramires MD Anesthesia Type: general ASA Status: 4 All Anesthesia Providers: Anesthesiologist: Sven Ramires MD Shale Planer Operator Helper: Naz Chilel MD Vitals Value Taken Time BP 110/69 12/13/2018 12:15 PM Temp Pulse 50 12/13/2018 12:17 PM Resp 10 12/13/2018 12:17 PM SpO2 94 % 12/13/2018 12:17 PM Pain Level Vitals shown include unvalidated device data. Patient Location: PACU/[facility] Level of Consciousness: Awake and Alert [...] AV HEMODIALYSIS GRAFT, SYNTHETIC GRAFT, UPPER EXTREMITY ([facility]) Patient Active Problem List Diagnosis ??? [...] - Tunneled Line 08/30/2018 Erwin Simon APRN [facility] INTERVENTIONL RAD ??? [...] (WRVU 8.41) performed by Lida Peter, Laureent [facility] OR ??? PRO [...] 4.0CM, TRUNK performed by SABRINA SANCHEZ at [facility] MAIN OR ??? PRO LAP, RADICAL NEPHRECTOMY Left 05/31/2017 @LAPAROSCOPY, RADICAL NEPHRECTOMY (WRVU 25.06) performed by Jxa Mills MD at [facility] MAIN OR ??? PRO LIGATN ANGIOACCESS AV FISTULA Left 04/19/2018 LIGATION OR BANDING OF HEMODIALYSIS FISTULA OR GRAFT UPPER EXTREMITY (WRVU 6.25) performed by Odalis Elias MD at [facility] OR ??? PRO NEGATIVE PRESSURE WOUND THERAPY, LESS THAN OR EQUAL TO 50 SQCM Left 04/19/2018 DRESSING CHANGE (VAC ASSISTED) UP TO 50SQ.CM (WRVU 0.55) performed by Odalis Elias MD [facility] OR ??? PRO [...] at [facility] ENDOSCOPY ??? PRO VASCULAR SURGERY PROCEDURE UNLIST Left 11/20/2015 LIGATION\REPAIR AV FISTULA performed by Camilo Ireland MD at [facility] MAIN OR ??? PRO VASCULAR SURGERY PROCEDURE UNLIST Left 11/20/2015 EXCISION VEIN FROM HAND performed by Camilo Ireland MD at [facility] MAIN OR ??? US RENAL TRANSPLANT BIOPSY 12/31/2010 ??? US RENAL TRANSPLANT RIGHT Right 06/04/2018 US Renal Transplant Right 06/04/2018 [facility] RAD ULTRASOUND Social History Tobacco Use [...] have failed transplant. Started on HD via [facility] presenting for left brachial axillary AVG placement. [...] DT documented in this encounter Care Teams Commodity Analyst Relationship Specialty Start Date End Date Carroll Fuentes DO [address] [place] [address] PCP - General 09/23/11 10/20/22 documented as of this encounter
--- OUTSIDE RECORDS SUMMARY | 2024-05-23 13:18 | XMS_ITS | Encounter Summary ---
Author Organization [facility] Address [facility] [place] [address] Care Team Providers Care Implementation Project Manager Name Role Phone AlfredoCarroll allison Primary Care Provider [phone] Reason for Visit * Reason Comments Kidney Transplant Follow-up Immunotherapy Chronic Kidney Disease Encounter Details Date Type Department Care Team (Late st Contact Info) Description 07/19/2018 11:20 AM EST Office Visit [place] [address] Anup Hawkins MD [facility] [place] [address] H/O kidney transplant; CKD (chronic kidney disease) [...] was sutured. He is back at the [facility]), and reports progressive anasarca, LE edema and weight gain. He has not fully recovered from his hemorrhagic (ruptured left arm AVF) PEA/ asystolic arrest (see previous admit to [facility])his BPs are also higher than baseline and [...] output CHF. In 2017 he underwent a?left 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 Patient remains on [...] from 07/19/2018 in Solid Organ Transplant at [facility] Weight 106.7 kg (235 lb 3.2 oz) [...] Negative mcL Appearance UA Clear Clear Spec [place] UA 1.023 1.002 - 1.030 Color UA [...] times weekly subcutaneously to be done at [facility]. ? Immunosuppression: -patient is [...] of 45 min??in direct face to face debt and budget counselor with Adama and his brother ?? [...] EST) Glucose, Urine Dipstick 50(A) Negative mg/dL [facility] Protein, Urine Dipstick >=500(A) Negative mg/dL [facility] Bilirubin, Urine Dipstick Negative Negative mg/dL [facility] Comment: Clinical correlation required for positive Urine Bilirubin results as false positive may occur with some drugs and drug related products. If a false positive is suspected a serum total bilirubin should be considered if clinically indicated. Urobilinogen, Urine Dipstick Normal Normal mg/dL [facility] pH, Urn (dipstick) 6.0 5.0 - 8.0 [facility] Blood, Urine Dipstick Negative Negative mg/dL [facility] Ketone, Urine Dipstick Negative Negative mg/dL [facility] Nitrite, Urine Dipstick Negative Negative [facility] Leukocytes, Urine Dipstick Negative Negative mcL [facility] Appearance, Urine Dipstick Clear Clear [facility] Specific [place] Urine Automated 1.023 1.002 - 1.030 [facility] Color, Urine Dipstick Yellow Yellow [facility] Reflex to Culture No [facility] Urine specimen obtained by clean catch procedure (specimen) 07/19/2018 9:47 AM EST 07/19/2018 9:58 AM EST Narrative Resulting Agency Comment Spec In Lab Anup Hawkins MD URINE ORDERABLES [facility] [place] [address] * Iron and TIBC (07/19/2018 9:41 AM EST) Iron 70 45 - 160 mcg/dL [facility] TIBC 263 250 - 450 mcg/dL [facility] Iron Saturation 27 20 - 50 % [facility] Blood specimen (specimen) 07/19/2018 9:41 AM EST 07/19/2018 9:54 AM EST Narrative Resulting Agency Comment Spec In Lab Anup Hawkins MD CHEMISTRY ORDERAB LES Performing Organization Address [facility] de Phone Number [facility] [place] [id number] * Folate, serum (07/19/2018 9:41 AM EST) Pathologist [facility] Folate 10.9 4.8 - 24.2 ng/mL [facility] Blood specimen (specimen) 07/19/2018 9:41 AM EST 07/19/2018 9:54 AM EST Narrative Resulting Agency Comment Spec In Lab Anup Hawkins MD CHEMISTRY ORDERAB LES Performing Organization Address [facility] de Phone Number [facility] [place] [address] * Ferritin (07/19/2018 9:41 AM EST) Ferritin 76 30 - 400 ng/mL [facility] Comment: Pediatric reference ranges not verified at [facility], interpret with caution. Reference ranges for females greater than 50 years of age approach values for men, i.e., 30-400 ng/mL. Blood specimen (specimen) 07/19/2018 9:41 AM EST 07/19/2018 9:54 AM EST Narrative Resulting Agency Comment Spec In Lab Anup Hawkins MD CHEMISTRY ORDERAB LES Performing Organization Address [facility]/ZIP Co de Phone Number [facility] [place] [address] * Tacrolimus level (07/19/2018 9:41 AM EST) Tacrolimus 3.2 ng/mL [facility] Comment: Trough therapeutic: ??5-15 ng/mL Performed by ultra-performance liquid chromatography tandem mass spectrometry (UPLCMS/MS). This test was developed and its performance characteristics determined by [facility]. It has not been cleared or approved [...] ORDERAB LES Performing Organization Address [facility] Co de Phone Number [facility] [place] [address] * (ABNORMAL) Reticulocyte Count (07/19/2018 9:41 AM EST) Reticulocyte % 1.2 0.7 - 2.6 % [facility] Retic Abs # 0.040 0.030 - 0.120 x10(6)/mcL [facility] Immature Retic% 9.0 0.0 - 15.6 % [facility] Reticulated Hgb 28.4(L) 31.3 - 40.2 pg [facility] Blood specimen (specimen) 07/19/2018 9:41 AM EST 07/19/2018 9:54 AM EST Narrative Resulting Agency Comment Spec In Lab Anup Hawkins MD HEMATOLOGY ORDERA BLES Performing Organization Address City/[facility] Co de Phone Number [facility] [place] [address] documented in this encounter Visit Diagnoses Diagnosis [...] function documented in this encounter Care Teams Implementation Project Manager Relationship Specialty Start Date End Date Carroll Fuentes DO [address] [place] [address] PCP - General 09/23/11 10/20/22 documented as of this encounter
--- OUTSIDE RECORDS SUMMARY | 2024-05-23 13:18 | XMS_ITS | Encounter Summary ---
Author Organization [facility] Address [facility] [place] [address] Care Team Providers Care Health Sanitarian Name Role Phone AlfredoCarroll allison Primary Care Provider Encounter Details Date Type Department Care Team (Late st Contact Info) Description 08/04/2018 Telephone [place] [address] Anabella Norwood Social History Tobacco Use Types [...] 2018 ??7:52 AM To: Alexandra [facility] [place]; Anand Lugo PA ?? Message Patient updated [...] 2:34 PM EST Lucas Ram called from [facility] to try to coord CT on 08/18 only time available is 8am or 3pm, Lucas will call back he is going to try to change Derm appt time. * Telephone Encounter - Selma Lara - 2018 9:43 AM EST Per pt request: Please schedule CT appt on 08/18 (following Derm appt) [facility] * Telephone Encounter - Anabella Norwood [...] Message Contents Dmitriy Hoffman, CATRACHITO Huang [facility] [place] ?? Follow-up in 4 weeks with AP with head CT. Dmitriy Zhu documented in this encounter Plan of Treatment Not on file documented as of this encounter Visit Diagnoses Not on filedocumented in this encounter Care Teams Health Sanitarian Relationship Specialty Start Date End Date Carroll Fuentes DO [address] [place] [address] PCP - General 09/23/11 10/20/22 documented as of this encounter
--- OUTSIDE RECORDS SUMMARY | 2024-05-23 13:18 | XMS_ITS | Encounter Summary ---
[place] [address] Care Team Providers Care Principal Clerk Name Role Phone Carroll Fuentes DO Primary Care Provider [phone] Encounter Details Date Type Department Care Team (Late st Contact Info) Description 07/27/2018 Orders Only [place] [address] Khushbu Fitzgerald, SAVANNA CKD (chronic kidney disease) [...] V documented in this encounter Care Teams Principal Clerk Relationship Specialty Start Date End Date Carroll Fuentes DO [address] [place] [address] PCP - General 09/23/11 10/20/22 documented as of this encounter
--- OUTSIDE RECORDS SUMMARY | 2024-05-23 13:18 | XMS_ITS | Encounter Summary ---
Author Organization [facility] Address [facility] [place] [address] Care Team Providers Care Sole Seamer Name Role Phone Carroll Fuentes DO Primary Care Provider [phone] Reason for Referral * Diagnostic Test (Routine) - Closed Specialty Diagnoses / Procedures Referred By Contac t Referred To Contact Radiology Diagnoses SDH (subdural hematoma) Procedures CT Head wo Contrast (Generic) Anand Lugo PA [facility] [place] [address] [facility] [place] [address] Referral ID Status Reason Start Date Expiration Date V isits Requested Visits Authorized [id number] Closed Specialty Service Requested 07/29/2018 10/27/2018 1 1 Reason for Visit * Auth/Cert Specialty Diagnoses / Procedures Referred By Contac t Referred To Contact Diagnoses Acute renal failure Acute kidney injury Procedures EMERGENCY IPI Referral ID Status Reason Start Date Expiration Date Visits Re quested Visits Authorized [id number] 1 1 Encounter Details Date Type Department Care Team (Latest Contact Info) Description 08/01/2018 5:15 PM EST - 08/01/2018 11:59 PM EST Hospital [place] [address] Tim Torres MD [facility] [place] [address] SDH (subdural hematoma) Discharge Disposition: Home Social [...] ? Electronically signed by: Damián Chacko MD, [facility] ([phone]), at 08/01/2018 5:56 PM Narrative 08/01/2018 5:56 [...] below. Electronically signed by: Damián Chacko MD, [facility]([phone]), at 08/01/2018 5:56 PM Tim Torres MD IMG CT ORDERABLES documented in this encounter Visit Diagnoses Diagnosis SDH (subdural hematoma) Subdural hemorrhage documented in this encounter Care Teams Sole Seamer Relationship Specialty Start Date End Date AlfredoCarroll [address] [place] [address] PCP - General 09/23/11 10/20/22 documented as of this encounter
--- OUTSIDE RECORDS SUMMARY | 2024-05-23 13:18 | XMS_ITS | Encounter Summary ---
Author Organization [facility] Address [facility] [place] [address] Care Team Providers Care Dry Wall Installations Mechanic Name Role Phone AlfredoCarroll allison Primary Care Provider [phone] Reason for Referral * Diagnostic Test (Routine) - Closed Specialty Diagnoses / Procedures Referred By Contac t Referred To Contact Radiology Diagnoses Subarachnoid hemorrhage Procedures CT Head wo Contrast (Generic) Dmitriy Hoffman APRN [facility] [place] [address] [facility] [place] [address] Referral ID Status Reason Start Date Expiration Date V isits Requested Visits Authorized [id number] Closed Specialty Service Requested 06/24/2018 09/22/2018 1 1 Reason for Visit * Diagnostic Test (Routine) - Closed Specialty Diagnoses / Procedures Referred By Contac t Referred To Contact Radiology Diagnoses Subarachnoid hemorrhage Procedures CT Head wo Contrast (Generic) Dmitriy Hoffman APRN [facility] [place] [address] [facility] [place] [address] Referral ID Status Reason Start Date Expiration Date V isits Requested Visits Authorized [id number] Closed Specialty Service Requested 06/24/2018 09/22/2018 1 1 Encounter Details Date Type Department Care Team (Latest Contact Info) Description 06/29/2018 10:00 AM EST - 06/29/2018 11:59 PM EST Hospital Encounter CT Scan at [facility] [place] [address] Dmitriy Hoffman APRN [facility] [place] [address] Subarachnoid hemorrhage Discharge Disposition: Home Social History [...] hemorrhage documented in this encounter Care Teams Dry Wall Installations Mechanic Relationship Specialty Start Date End Date Carroll Fuentes DO [address] [place] [address] PCP - General 09/23/11 10/20/22 documented as of this encounter
--- OUTSIDE RECORDS SUMMARY | 2024-05-23 13:18 | XMS_ITS | Encounter Summary ---
Author Organization [facility] Address [facility] [place] [address] Care Team Providers Care Fire Extinguisher Charger Name Role Phone AlfredoCarroll allison Primary Care Provider [phone] Reason for Referral * Surgical (Routine) - Closed Specialty Diagnoses / Procedures Referred By Shashi ko Referred To Contact Neurosurgery Diagnoses SDH (subdural hematoma) Follow up SDH, requested 1 month f/u clinic visit with HCT (~ 09/01/2018) [place] [address] [facility] [address] [place] [address] Referral ID Status Reason Start Date Expiration Date V isits Requested Visits Authorized [id number] Closed Consult, Test & Treat 2018 2019 1 1 * Diagnostic Test (Routine) - Closed Specialty Diagnoses / Procedures Referred By Shashi ko Referred To Contact Radiology Diagnoses SDH (subdural hematoma) Procedures CT Head wo Contrast (Generic) Dmitriy Hoffman APRN [facility] [place] [address] [facility] [place] [address] Referral ID Status Reason Start Date Expiration Date V isits Requested Visits Authorized [id number] Closed Specialty Service Requested 08/09/2018 11/07/2018 1 1 Reason for Visit * Reason Comments Abnormal Labs * Auth/Cert Specialty Diagnoses / Procedures Referred By Contac t Referred To Contact Diagnoses Acute renal failure Acute kidney injury Procedures EMERGENCY IPI Referral ID Status Reason Start Date Expiration Date Visits Re quested Visits Authorized [id number] 1 1 Encounter Details Date Type Department Care Team (Latest Contact Info) Description 07/29/2018 9:02 PM EST - 2018 9:00 AM EST Hospital Encounter 1 [place] [id number] Oliver Lynn MD [address] [place] [address] Alozno Alatorre MD [facility] [place] [address] [place] [address] Sabrina Flynn [place], [place] [address] [place] [address] Acute kidney injury; Nonintractable epilepsy without status [...] documented in this encounter Discharge Summaries * Erwin Dolan MD - 2018 9:00 AM EST Discharge Summary Patient Name: Christy Ambrose Patient Age: 58 y.o. Language: Estonian Race: White Ethnicity: Not nor Admit date: [...] please contact your inpatient physician through the [facility] Cover Marker . Issues afterhours and on weekends will [...] GFR 15-29 ml/min ??? 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 H/O [...] Presentation: This is a 57 y.o. male [facility] resident (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 His cellcept was discontinued and tacrolimus changed to 1mg BID at the recommendation of his transplant soil sampler. Levels do not need to be monitored [...] Data: None Discharge Conditions/Prognosis: Good Discharge to: [facility] Updated Allergies/ADRs: Allergies Allergen Reactions [...] Further adjustments to be made by your soil sampler. -Your cellcept was dicontinued. Your should continue tacrolimus 1 mg 2xD. These levels do not need to be monitored. Follow-Up Appointments Your Inpatient Doctor(s) at [facility]: Erwin Dolan MD General Instructions NON-OPERATIVE HEAD INJURY/BLEED DISCHARGE INSTRUCTIONS PRESCRIPTION INSTRUCTIONS: Please see the medication reconciliation list on this discharge summary for a current list of your medications. Stop the use of blood thinning medications until instructed otherwise by your neurosurgical team. This includes medications known as antiplatelet, anticoagulant, and non-steroidal anti-inflammatory (NSAIDs) drugs. Common esgn-qdv-celgkrx medications which should be avoided include Aspirin, [...] a head injury. - When your health home care rn says you are well enough, return to your normal activities gradually, not all at once. - Talk with your health home care rn about when you can return to work. [...] Provider. Please call the Neurosurgery Office at [phone] if you do not receive a scheduled appointment within two weeks Imaging: [x] Head CT [facility] Vascular and Interventional Radiology [...] is during regular office hours, please call [phone]. If it is after regular office hours, or on weekends or holidays, please call [phone] and ask to speak to the Wet [employer]k Hanger pest control worker helper for Interventional Radiology. You have received [...] 10:30 AM Chanel Smith MD Dermatology at [facility] [address] [phone] Future Orders Complete By Expires CT Head wo Contrast (Generic) [QVH363 Custom] 08/12/2018 02/11/2019 Process Instructions: Scheduling Instructions: Questions: Where will study be performed?: [facility] Reason for exam and clinical history: Follow up SDH Other pertinent information: Stat read required?: Does patient require sedation?: GA rationale: Date of injury if applicable: Requested Time: CT Head wo Contrast (Generic) [VMH728 Custom] 09/01/2018 03/03/2019 Process Instructions: Scheduling Instructions: Questions: Where will study be performed?: [facility] Reason for exam and clinical history: [...] Discharge Instructions * Discharge Instructions* Dmitriy Hoffman, LEHR TENDER - 08/04/2018 7:52 AM EST NON-OPERATIVE HEAD INJURY/BLEED DISCHARGE INSTRUCTIONS PRESCRIPTION INSTRUCTIONS: Please see the medication reconciliation list on this discharge summary for a current list of your medications. Stop the use of blood thinning medications until instructed otherwise by your neurosurgical team. This includes medications known as antiplatelet, anticoagulant, and non-steroidal anti-inflammatory (NSAIDs) drugs. Common kqtn-ilg-gdbzhnn medications which should be avoided include Aspirin, [...] a head injury. - When your health home care rn says you are well enough, return to your normal activities gradually, not all at once. - Talk with your health home care rn about when you can return to work. [...] Provider. Please call the Neurosurgery Office at [phone] if you do not receive a scheduled appointment within two weeks Imaging: [x] Head CT [facility] Vascular and Interventional Radiology [...] is during regular office hours, please call [phone]. If it is after regular office hours, or on weekends or holidays, please call [phone] and ask to speak to the [employer] pest control worker helper for Interventional Radiology. You have received [...] Further adjustments to be made by your soil sampler. -Your cellcept was dicontinued. Your should continue tacrolimus 1 mg 2xD. These levels do not need to be monitored. Follow-Up Appointments Your Inpatient Doctor(s) at [facility]: Erwin Dolan MD documented in this encounter [...] Transport was a no show for 9am scrap picker. Ysabel expressed that patient needs dialysis on time at [facility]. Called [facility] to secure ride, will be at [facility] in 15 minutes (9:50ish) this morning to drive patient to [facility] for dialysis appt today. * Tammie Yeboah - 2018 9:20 AM EST Images from the original note were not included. Office of Care Management/Homebound Teacher Patient Name: Christy Ambrose : 1960 Patient has been offered an assisted living bed at [facility] for today. [facility] will pick Mr. Ambrose up at the [place] Entrance at 9am on August 08 en route to [facility] for dialysis. No MD to MD report necessary Please call Nursing Report to [phone], ask for top lift nailer. Info to accompany patient: Narcotic Prescriptions Copies of Medication Administration Records and IV sheets for past 10 days. Plan: Homebound Teacher will be available to the patient and Warehouse Analyst-RN and/or Social Workerfor further assistance. Patient will be discharged to: [facility] [address] [place] [address] Tammie Yeboah Homebound Teacher * Erwin Dolan MD - 2018 9:16 [...] spent <30 minutes (Day of Discharge Code 32960) involved in the final examination of the patient, discussion of the hospital stay, instructions for continuing care to all relevant caregivers, and preparation of discharge records, prescriptions and referral forms Plans ? Discharge to [facility] ? Follow-up scheduled with Nephrology, [...] a ride that was sent from [facility] for dialysis and will be picked up by [facility] where he will be staying. RDO * Kady Rossi RN - 2018 9:00 AM EST Office of Care Management grinder operator tool Kady Rossi (pager [phone]) Patient: Christy Ambrose : 1960 (58 y.o.) Home: [facility] [address]* LOS: 10 days Received call from [facility] [phone] ext. [phone] that patient has lost his discharge Rxs and they need a medication list that has electronically signedby or the MD's signature on it. Notified [facility] 2200 who will fax a signed medication list to [phone]. PCP: Carroll Fuentes, DO, Future Appointments Date Time Provider Department Center 08/18/2018 11:45 AM Chanel Smith MD [facility] [address] 08/18/2018 3:[address] [facility] [address] [facility] Patient [...] ml/min N18.4 ??? 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 Consider TELECOMMUNICATIONS CABLE JOINTER consult for full evaluation and diet recommendations. [...] gap metabolic acidosis 08/03/2018 ??? Hypernatremia 08/03/2018 [facility] Active Non-Hospital Problems Diagnosis ??? Kidney [...] on Wednesday, he will have HD in [facility] IV access: PIV Tubes/Drains:none DVT PPX: SCD Anticipated Disposition: Wednesday Team Pager( Coverage 01/02): #[phone] PCP: Carroll Fuentes DO [phone] Attestation: IPI Certification I certify that I am a D-H credentialed attending provider with admitting privileges and that the patient meets or has met medical necessity to require an inpatient IPI level of care meeting a minimumof two midnights or is on the [facility] inpatient only procedure list (status C) [...] gap metabolic acidosis 08/03/2018 ??? Hypernatremia 08/03/2018 [facility] Active Non-Hospital Problems Diagnosis ??? Kidney [...] on Wednesday, he will have HD in [facility] IV access: PIV Tubes/Drains:none DVT PPX: SCD Anticipated Disposition: Wednesday Team Pager( Coverage 01/02): #[phone] PCP: Carroll Fuentes DO [phone] Attestation: IPI Certification I certify that I am a D-H credentialed attending provider with admitting privileges and that the patient meets or has met medical necessity to require an inpatient IPI level of care meeting a minimumof two midnights or is on the [facility] inpatient only procedure list (status C) [...] time today. Dialysis Catheter accessed by Alicja Gonzalez RN without issue or concern. Patient watching [...] overload and uncontrolled HTN failed transplant for COMMUNITY HEALTH SPECIALIST ID: 57 y/o with PMH of ESRD secondary to IgA nephropathy s/p donor renal transplant in 2002 (complicated by delayed graft function, recurrent IgA nephropathy and Prograf toxicity) on immunosuppression therapy (tacrolimus and??mycophenolate), papillary renal cancer for pamunkey left kidney s/p laparoscopic left radical nephrectomy in May 2017 who presented to ER with fluid overload anduncontrolled hypertension due to failed transplant that require COMMUNITY HEALTH SPECIALIST. 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 - Strict Is and Os,daily weights [...] Discussed w/ Dr.Brant Radha Hughes Nephrology Fellow [phone] Associated attestation - Crystal Mcdermott MD - 08/07/2018 9:55 AM EST The patient was seen and examined with the nephrology fellow. Please see the nephrology fellow's note from today for details. I have reviewed the fellow's note and agree with the exam, and assessmentand plan. Patient had dialysis today. Stable treatment. No issues with dialysis or access. Crystal Mcdermott MD * Sabrina Flynn III, MD - 08/05/2018 4:45 PM EST [...] on Wednesday, he will have HD in [facility] IV access: PIV Tubes/Drains:none DVT PPX: SCD Anticipated Disposition: Wednesday Team Pager( Coverage 01/02): #[phone] PCP: Carroll Fuentes DO [phone] Attestation: IPI Certification I certify that I [...] He has been offered a bed at [facility] living but they do not admit over the weekend. The plan for discharge is that Christy will be picked up at 9:00 AM Wednesday morning by [facility], who will take him to his first HD appointment at [facility] Address: [address] [place] [id number] [facility] will arrange to pick Christy up after his HD session. This plan was formulated with input from patient, family and team. All are in agreement with plan. Ysabel Jeffers RN Case Manager [phone] Pager #[phone] * Radha Hughes - 08/05/2018 12:30 PM EST HYPERTENSION/ NEPHROLOGY PROGRESS NOTE PATIENT: Christy Ambrose : 1960 REASON FOR CONSULTATION: Volume overload and uncontrolled HTN failed transplant for COMMUNITY HEALTH SPECIALIST ID: 57 y/o with PMH of ESRD secondary to IgA nephropathy s/p donor renal transplant in 2002 (complicated by delayed graft function, recurrent IgA nephropathy and Prograf toxicity) on immunosuppression therapy (tacrolimus and??mycophenolate), papillary renal cancer for pamunkey left kidney s/p laparoscopic left radical nephrectomy in May 2017 who presented to ER with fluid overload anduncontrolled hypertension due to failed transplant that require COMMUNITY HEALTH SPECIALIST. Subjective; No acute events overnight. 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 - Strict Is and Os,daily weights [...] Discussed w/ Dr.Brant Radha Hughes Nephrology Fellow [phone] Associated attestation - Crystal Mcdermott MD - [...] will pick Mr. Ambrose up at the [place] Entrance at 9am on August 08 en route to [facility] for dialysis. RCT will call Ysabel/MARIZA on Wednesday a.m. If needed. * Walt Knox, JIMENA - 08/05/2018 10:52 AM EST Continuing to discuss pt's status and situation during multidisciplinary discharge planning rounds. Received email from Jeanine last night re: communication he received from staff at [facility], identifying that [facility] has identified to them they will accept pt for admission. [facility] They do confirm their plan to admit Christy on Wednesday. Advised team and pt will get an additional dialysis treatment either today or tomorrow here. The current plan is that we will help transfer/coordinate ride for Christy to the [facility] on Wednesday morning. He has 11:00 AM chair space and they had asked for pt to be there to get him set up a little prior to this to get paperwork completed. Have requested and recommended Lucas help contact them for whatever assistance they need and for which pt would benefit from Lucas's help to get setup. 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 [...] Neurology resident, PGY-3 Consult neurology service pager [phone] Standard [facility] Swallow Screen: This screen is to be [...] diet as medical provider deems appropriate. Consider TELECOMMUNICATIONS CABLE JOINTER consult for full evaluation and diet recommendations. [...] possibly medically ready as early as tomorrow. [facility] Cannot admit over the week-end. Lucas to contact facility to coordinate pt's admission if this becomes appropriate LOC for d/c needs. Also spoke with Esthela Silverman -[facility]. They report ability to manage a variety of LOC needs. They have requested Rehab notes to assess their ability to admit pt when medically ready. I have faxed PT and OT notes to them f: . They also are not able to admit over theweek-end. Also identified pt has obtained HD chair @ [facility], 11:00 AM. Will assess pt's status in AM and continued d/c plan. Per family-preference as noted is for pt to admit to [facility] as soon as he is able. SNF,-[facility] is alternative should pt require SNF [...] GFR 15-29 ml/min ??? 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 H/O [...] Disposition: 1-2 days Team Pager( Coverage 01/02): #[phone] PCP: Carroll Fuentes DO [phone] Attestation: IPI Certification I certify that I [...] d/c. [facility] Spoke with pt's brother/DPOA-HC, Lucas, by TC. Discussed that [facility]. Noted expectation that pt's current continued care needs,and PT/OT recommendations, present that pt best served by SNF LOC. I have asked Lucas to [facility] [address] [address] staff MELY today to discuss admission and payment issues and confirm plan (and also advise us) for target for SNF d/c back to [facility]. Following for CONVENTION SERVICES DIRECTOR and care management support through disposition. * Tammie Yeboah - 08/04/2018 2:16 PM EST Office of Care Management/Homebound Teacher Name: Christy Ambrose Presenting Issue: Patient referral for outpatient dialysis placement. Patient has been approved for outpatient dialysis at the [facility] HD unit. The patient can start treatments onWednesday at 1100 am, 1040 arrival for paperwork. The patient will have a schedule of Mon/Wed/Fri at 1100. Transportation to outpatient dialysis will be arranged by family. Plan: This office will be available to the patient, Warehouse Analyst-RN and Social Group Worker as needed. Dialysis Unit Address: [address] [place] [address] Tammie Yeboah Homebound Teacher * Mayra Huggins RN - 08/04/2018 12:09 [...] overload and uncontrolled HTN failed transplant for COMMUNITY HEALTH SPECIALIST ID: 57 y/o with PMH of ESRD secondary to IgA nephropathy s/p donor renal transplant in 2002 (complicated by delayed graft function, recurrent IgA nephropathy and Prograf toxicity) on immunosuppression therapy (tacrolimus and??mycophenolate), papillary renal cancer for pamunkey left kidney s/p laparoscopic left radical nephrectomy in May 2017 who presented to ER with fluid overload anduncontrolled hypertension due to failed transplant that require COMMUNITY HEALTH SPECIALIST. 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 - Strict Is and Os,daily weights [...] Discussed w/ Dr.Graber Radha Hughes Nephrology Fellow [phone] Associated attestation - Gaby Mesa MD - [...] will re-attempt when appropriate. Please page this senior copywriter if you have any questions, thank you. Patty Marrero, PT Pager #[phone] Physical Therapy Inpatient Rehabilitation * Dmitriy Hoffman [...] at this time. Please page Neurosurgery at [phone] if there are any focal neurologic changes [...] GFR 15-29 ml/min ??? 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 H/O [...] was supposed to drop; could not find [employer]'s. Seems unusual for this to be just [...] Disposition: 1-2 days Team Pager( Coverage 01/02): #[phone] PCP: Carroll Fuentes DO [phone] Attestation: IPI Certification I certify that I [...] overload and uncontrolled HTN failed transplant for COMMUNITY HEALTH SPECIALIST ID: 57 y/o with PMH of ESRD secondary to IgA nephropathy s/p donor renal transplant in 2002 (complicated by delayed graft function, recurrent IgA nephropathy and Prograf toxicity) on immunosuppression therapy (tacrolimus and??mycophenolate), papillary renal cancer for pamunkey left kidney s/p laparoscopic left radical nephrectomy in May 2017 who presented to ER with fluid overload anduncontrolled hypertension due to failed transplant that require COMMUNITY HEALTH SPECIALIST. 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 -No electrolyte abnormalities,uremic symptoms,overt fluid overload,metabolic [...] Discussed w/ Dr.Graber Radha Hughes Nephrology Fellow [phone] Associated attestation - Gaby Mesa MD - [...] admission [facility]. Plan is to attempt to get pt placement at [facility], but [facility] if [facility] not come through. Pt requests referral to: [place] [address] CM will continue to follow and assist with discharge planning and coordination of care as indicated. Ysabel Jeffers RN Case Manager [phone] Pager #[phone] * Dmitriy Hoffman APRN - 08/03/2018 8:31 [...] if an alternative is available PLEASE PAGE [phone] WITH QUESTIONS Active Hospital Problems Diagnosis ??? [...] GFR 15-29 ml/min ??? 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 H/O [...] GFR 15-29 ml/min ??? 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 H/O [...] [facility] drop[facility] Seems unusual for this to be just [...] Disposition: 2-3 days Team Pager( Coverage 01/02): #[phone] PCP: Carroll Fuentes DO [phone] Attestation: IPI Certification I certify that I am a D-H credentialed attending provider with admitting privileges and that the patient meets or has met medical necessity to require an inpatient IPI level of care meeting a minimumof two midnights or is on the [facility] inpatient only procedure list (status C) [...] prior to admission: Pt was resident at [facility] (private pay), independent. Family has been attempting to have pt placed at [facility] longterm home where is mother is resident. Dispo will depend on pt's needs and availability of placement at [facility]. Referral made to [facility] for HD spot. CM will continue to follow and assist with discharge planning and coordination of care as indicated. Ysabel Jeffers grinder operator tool [phone] Pager #[phone] * Mallory Gonzales RN - 08/02/2018 12:24 [...] overload and uncontrolled HTN failed transplant for COMMUNITY HEALTH SPECIALIST ID: 57 y/o with PMH of ESRD secondary to IgA nephropathy s/p donor renal transplant in 2002 (complicated by delayed graft function, recurrent IgA nephropathy and Prograf toxicity) on immunosuppression therapy (tacrolimus and??mycophenolate), papillary renal cancer for pamunkey left kidney s/p laparoscopic left radical nephrectomy in May 2017 who presented to ER with fluid overload anduncontrolled hypertension due to failed transplant that require COMMUNITY HEALTH SPECIALIST. Subjective; Seen on HD.Tolerated the procedure well.Had [...] nephropathy,DGF and prograf toxicity also had left pamunkey kidney nephrectomy due to papillary ca in [...] -Next dialysis mostly on 08/04/18().Need to involve menagerie caretaker for dialysis placement at [facility]. - Strict Is and Os,daily weights [...] Discussed w/ Dr.Graber Radha Hughes Nephrology Fellow [phone] Associated attestation - Gaby Mesa MD - [...] new HD on discharge, requests spot at [facility]. 3rd inpatient HD session today 08/02. CXR and Hep B antigen completed. Ysabel Jeffers RN Case Manager [phone] Pager [phone] * Walt Knox MSW - 08/02/2018 9:39 AM EST [facility] Left VM and awaiting reply. [...] was supposed to drop; could not find [facility]. Seems unusual for this to [...] Disposition: 2-3 days Team Pager( Coverage 01/02): #[phone] PCP: Carroll Fuentes DO [phone] Attestation: IPI Certification I certify that I am a D-H credentialed attending provider with admitting privileges and that the patient meets or has met medical necessity to require an inpatient IPI level of care meeting a minimumof two midnights or is on the [facility] inpatient only procedure list (status C) [...] encounter: 103.5 kg (228 lb 1.6 oz). 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 Subjective; Seen on HD.Tolerating the procedure well.Had [...] with ESRD secondary to failed transplant needing COMMUNITY HEALTH SPECIALIST # ESRD due to failed Transplant: - S/p failed DDTxp -2002 with recurrent IgA nephropathy,DGF and prograf toxicity also had left pamunkey kidney nephrectomy due to papillary ca in [...] Discussed w/ Dr.Graber Radha Hughes Nephrology Fellow [phone] Associated attestation - Gaby Mesa MD - [...] PM EST 3:59 PM Pt arrived from [facility] at 1600, transferred to 1East bed 1 [...] REASON FOR CONSULTATION: Referred for evaluation for COMMUNITY HEALTH SPECIALIST in a failed transplant ID: 57 y/o with PMH of ESRD secondary to IgA nephropathy s/p donor renal transplant in 2002 (complicated by delayed graft function, recurrent IgA nephropathy and Prograf toxicity) on immunosuppression therapy (tacrolimus and??mycophenolate), 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 Subjective; [...] nephropathy,DGF and prograf toxicity also had left pamunkey kidney nephrectomy due to papillary ca in [...] Discussed w/ Dr.Graber Giovani Molina Nephrology Fellow [phone] Associated attestation - Gaby Mesa MD - [...] in the care of this patient * Sabrina Flynn III, MD - 07/31/2018 10:50 AM [...] was supposed to drop; could not find [facility]. Seems unusual for this to [...] Disposition: 3-4 days Team Pager(MD Coverage 01/02): #[phone] PCP: Carrlol Fuentes DO [phone] Attestation: IPI Certification I certify that I am a D-H credentialed attending provider with admitting privileges and that the patient meets or has met medical necessity to require an inpatient IPI level of care meeting a minimumof two midnights or is on the [facility] inpatient only procedure list (status C) [...] docusate, epoetin kerry Interval History: Admitted to [facility] Renal consulted Feeling okay this AM [...] Disposition: 3-4 days Team Pager( Coverage 01/02): #[phone] PCP: Carroll Fuentes DO [phone] Attestation: IPI Certification I certify that I am a D-H credentialed attending provider with admitting privileges and that the patient meets or has met medical necessity to require an inpatient IPI level of care meeting a minimumof two midnights or is on the [facility] inpatient only procedure list (status C) [...] REASON FOR CONSULTATION: Referred for evaluation for COMMUNITY HEALTH SPECIALIST in a failed transplant ID: 57 y/o with PMH of ESRD secondary to IgA nephropathy s/p donor renal transplant in 2002 (complicated by delayed graft function, recurrent IgA nephropathy and Prograf toxicity) on immunosuppression therapy (tacrolimus and??mycophenolate), 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 1,Failed Transplant: - S/p failed DDTxp -2002 with recurrent IgA nephropathy,DGF and prograf toxicity also had left pamunkey kidney nephrectomy due to papillary ca in [...] Discussed w/ Dr.Bonita Rodríguez MD Nephrology Fellow #[phone] Renal Attending Inpatient Consult We are asked [...] of : 1960 AGE: 57 y.o. Address: [address] [place] [phone] (home) Mobile: Telephone Information: Referring Provider: No [...] performed by Miguel Angel Moreno MD at [facility] MAIN OR ??? PRO DECOMPRESS FOREARM, BRACH ART EXPLOR Left 04/06/2018 FASCIOTOMY, FOREARM, WITH BRACHIAL ARTERY EXPLORATION (WRVU 8.41) performed by Lida Peter MDat [facility] OR ??? PRO DIRECT REPAIR RUPTURED ANEURYSM, AXILLO-BRACHIAL ARM INCIS Left 04/06/2018 @REPAIR, RUPTURED AXILLARY OR BRACHIAL ARTERY ANEURYSM BY ARM INCISION (WRVU *) performed by Lida Peter MD at [facility] OR ??? PRO EXC PAROTD, TOTAL, UNILAT RAD NECK Left 02/05/2016 @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, TOTAL, WITH UNILATERAL RADICAL NECK DISSECTION performed by Miguel Angel Moreno MD at [facility] OR ??? PRO EXC SKIN MALIG 3.1-4CM FACE, FACIAL Left 02/05/2016 EXC MALIGNANT LESION, 3.1 TO 4.0CM, FACE performed by Miguel Angel Moreno MD at [facility] OR ? ? PRO EXC SKIN MALIG >4CM TRUNK, ARM, LEG 04/19/2012 EXC MALIGNANT LESION, MICHAEL > 4.0CM, TRUNK performed by SABRINA SANCHEZ at [facility] OR ??? PRO LAP, RADICAL NEPHRECTOMY Left 05/31/2017 @LAPAROSCOPY, RADICAL NEPHRECTOMY (WRVU 25.06) performed by Jax Mills MD at [facility] OR ??? PRO LIGATN ANGIOACCESS AV FISTULA Left 04/19/2018 LIGATION OR BANDING OF HEMODIALYSIS FISTULA OR GRAFT UPPER EXTREMITY (WRVU 6.25) performed by Odalis Elias MD at [facility] OR ??? PRO NEGATIVE PRESSURE WOUND THERAPY, LESS THAN OR EQUAL TO 50 SQCM Left 04/19/2018 DRESSING CHANGE (VAC ASSISTED) UP TO 50SQ.CM (WRVU 0.55) performed by Odalis Elias MD [facility] MAIN OR ??? PRO REBL VES GRAFT, UP EXTREM Left 04/06/2018 REPAIR BLOOD VESSEL WITH GRAFT OTHER THAN VEIN, UPPER EXTREMITY (WRVU 15.83) performed by Lida Peter MD at [facility] MAIN OR ??? PRO RELIEVE PRESSURE ON NERVE(S) Left 04/06/2018 (MSURG) CARPAL TUNNEL (WRVU 4.82) performed by Silviano Sparks MD at [facility] MAIN OR ??? PRO REPAIR INTERMEDIATE S/A/T/E 2.6-7.5 CM 04/19/2012 REPAIR INTERMEDIATE WOUND, (NO HANDS OR FEET) 2.6 TO 7.5CM, UPPER EXTREMITY performed by SABRINA SANCHEZ at [facility] MAIN OR ? ? PRO REPAIR INTERMEDIATE S/A/T/E > 30.0 CM Left 04/14/2018 REPAIR INTERMEDIATE WOUND, (NO HANDS OR FEET) >30.0CM, UPPER EXTREMITY (WRVU 5) performed by Yimi Easton MD at [facility] MAIN OR ??? PRO REVISE MEDIAN N/CARPAL TUNNEL SURG Left 04/06/2018 MEDIAN NERVE DECOMPRESSION (CARPAL TUNNEL RELEASE) (WRVU 4.97) performed by Lida Peter MD [facility] OR ? ? PRO SPLIT GRFT TRUNK, ARM, LEG <100SQCM Left 04/26/2018 SPLIT THICK SKIN GRAFT,100 SQ CM OR LESS, ARMS (WRVU 9.9) performed by Silviano Sparks MD at [facility] MAIN OR ? ? PRO SPLIT GRFT, HEAD, FAC, HAND, FEET <100SQCM N/A 02/20/2016 SPLIT THICKNESS SKIN SPLIT GRAFT,100SQ CM OR LESS, NECK performed by Miguel Angel Moreno MD at [facility] MAIN OR ??? PRO SPLIT GRFT, TRUNK, ARM, LEG EA 100SQCM N/A 04/26/2018 EA.ADDITIONAL 100SQ.CM STSG (WRVU 1.72) performed by Silviano Sparks MD at [facility] MAIN OR ??? PRO UPPER GI ENDOSCOPY, BIOPSY N/A 05/13/2017 EGD WITH BIOPSY (WRVU 2.49) performed by Aditya Barrera MD at [facility] ENDOSCOPY ??? PRO VASCULAR SURGERY PROCEDURE UNLIST Left 11/20/2015 LIGATION\REPAIR AV FISTULA performed by Camilo Ireland MD at [facility] MAIN OR ??? PRO VASCULAR SURGERY PROCEDURE UNLIST Left 11/20/2015 EXCISION VEIN FROM HAND performed by Camilo Ireland MD at [facility] MAIN OR ??? US RENAL TRANSPLANT BIOPSY 12/31/2010 ??? US RENAL TRANSPLANT RIGHT Right 06/04/2018 US Renal Transplant Right 06/04/2018 [facility] RAD ULTRASOUND Date/Procedure Meds given/comments 07/30/18 REJ [...] by mouth 3 times daily. 07/19/18 Anup Rivrea MD furosemide (LASIX) 40 mg Tablet Take [...] Take 1 capsule by mouth daily. 07/01/18 Anup Rivera MD calcium carbonate 648 mg calcium [...] uvula, fauces visible) Anand Robles MD Interventional [facility] [employer] [facility] documented in this encounter H&P Notes * Anand Robles S - 07/30/2018 9:49 AM EST Images from the original note were not included. INTERVENTIONAL RADIOLOGY FOCUSED H&P and PRE-PROCEDURE NOTE: PCP: Carroll Fuentes DO Referring Provider: No ref. provider found Planned Procedure: Planned procedure: IR tunneled HD catheter placement Procedure Indication: Need for longterm HD There are no answered order specific questions. Presenting Diagnosis/ Complaint: Christy Ambrose is a 57 y.o. male ECF resident ([facility]) with a history of TBI, seizures on Keppra, ESRD from IgA nephropathy s/p renal transplant 11/2002 c/b tacrolimus toxicity, papillary renal cancer s/p pamunkey left nephrectomy 2016, prior LUE AVF with [...] performed by Miguel Angel Moreno MD at [facility] MAIN OR ??? PRO DECOMPRESS FOREARM, BRACH ART EXPLOR Left 04/06/2018 FASCIOTOMY, FOREARM, WITH BRACHIAL ARTERY EXPLORATION (WRVU 8.41) performed by Lida Peter MDat [facility] MAIN OR ??? PRO DIRECT REPAIR RUPTURED ANEURYSM, AXILLO-BRACHIAL ARM INCIS Left 04/06/2018 @REPAIR, RUPTURED AXILLARY OR BRACHIAL ARTERY ANEURYSM BY ARM INCISION (WRVU *) performed by Lida Peter MD at [facility] MAIN OR ??? PRO EXC PAROTD, TOTAL, UNILAT RAD NECK Left 02/05/2016 @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, TOTAL, WITH UNILATERAL RADICAL NECK DISSECTION performed by Miguel Angel Moreno MD at [facility] OR ??? PRO EXC SKIN MALIG 3.1-4CM FACE, FACIAL Left 02/05/2016 EXC MALIGNANT LESION, 3.1 TO 4.0CM, FACE performed by Miguel Angel Moreno MD at [facility] OR ? ? PRO EXC SKIN MALIG >4CM TRUNK, ARM, LEG 04/19/2012 EXC MALIGNANT LESION, MICHAEL > 4.0CM, TRUNK performed by SABRINA SANCHEZ at [facility] OR ??? PRO LAP, RADICAL NEPHRECTOMY Left 05/31/2017 @LAPAROSCOPY, RADICAL NEPHRECTOMY (WRVU 25.06) performed by Jax Mills MD at [facility] OR ??? PRO LIGATN ANGIOACCESS AV FISTULA Left 04/19/2018 LIGATION OR BANDING OF HEMODIALYSIS FISTULA OR GRAFT UPPER EXTREMITY (WRVU 6.25) performed by Odalis Elias MD at [facility] MAIN OR ??? PRO NEGATIVE PRESSURE WOUND THERAPY, LESS THAN OR EQUAL TO 50 SQCM Left 04/19/2018 DRESSING CHANGE (VAC ASSISTED) UP TO 50SQ.CM (WRVU 0.55) performed by Odalis Elias MD [facility] OR ??? PRO REBL VES GRAFT, UP EXTREM Left 04/06/2018 REPAIR BLOOD VESSEL WITH GRAFT OTHER THAN VEIN, UPPER EXTREMITY (WRVU 15.83) performed by Lida Peter MD at [facility] OR ??? PRO RELIEVE PRESSURE ON NERVE(S) Left 04/06/2018 (MSURG) CARPAL TUNNEL (WRVU 4.82) performed by Silviano Sparks MD at [facility] OR ??? PRO REPAIR INTERMEDIATE S/A/T/E 2.6-7.5 CM 04/19/2012 REPAIR INTERMEDIATE WOUND, (NO HANDS OR FEET) 2.6 TO 7.5CM, UPPER EXTREMITY performed by SABRINA SANCHEZ at [facility] MAIN OR ? ? PRO REPAIR INTERMEDIATE S/A/T/E > 30.0 CM Left 04/14/2018 REPAIR INTERMEDIATE WOUND, (NO HANDS OR FEET) >30.0CM, UPPER EXTREMITY (WRVU 5) performed by Yimi Easton MD at [facility] MAIN OR ??? PRO REVISE MEDIAN N/CARPAL TUNNEL SURG Left 04/06/2018 MEDIAN NERVE DECOMPRESSION (CARPAL TUNNEL RELEASE) (WRVU 4.97) performed by Lida Peter MD [facility] MAIN OR ? ? PRO SPLIT GRFT TRUNK, ARM, LEG <100SQCM Left 04/26/2018 SPLIT THICK SKIN GRAFT,100 SQ CM OR LESS, ARMS (WRVU 9.9) performed by Silviano Sparks MD at [facility] MAIN OR ? ? PRO SPLIT GRFT, HEAD, FAC, HAND, FEET <100SQCM N/A 02/20/2016 SPLIT THICKNESS SKIN SPLIT GRAFT,100SQ CM OR LESS, NECK performed by Miguel Angel Moreno MD at [facility] MAIN OR ??? PRO SPLIT GRFT, TRUNK, ARM, LEG EA 100SQCM N/A 04/26/2018 EA.ADDITIONAL 100SQ.CM STSG (WRVU 1.72) performed by Silviano Sparks MD at [facility] MAIN OR ??? PRO UPPER GI ENDOSCOPY, BIOPSY N/A 05/13/2017 EGD WITH BIOPSY (WRVU 2.49) performed by Aditya Barrera MD at [facility] ENDOSCOPY ??? PRO VASCULAR SURGERY PROCEDURE UNLIST Left 11/20/2015 LIGATION\REPAIR AV FISTULA performed by Camilo Ireland MD at [facility] MAIN OR ??? PRO VASCULAR SURGERY PROCEDURE UNLIST Left 11/20/2015 EXCISION VEIN FROM HAND performed by Camilo Ireland MD at [facility] MAIN OR ??? US RENAL TRANSPLANT BIOPSY 12/31/2010 ??? US RENAL TRANSPLANT RIGHT Right 06/04/2018 US Renal Transplant Right 06/04/2018 [facility] RAD ULTRASOUND Medications: No current facility-administered [...] Not on file Occupational History ??? 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 Smoking status: [...] AVF and worsening renal function. Pt requires longterm HD. Plan: Will attempt tunneled line with [...] c/b tacrolimus toxicity, papillary renal cancer s/p pamunkey left nephrectomy 2016, prior LUE AVF with [...] Not on file Occupational History ??? 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 Smoking status: [...] to dropped; could not find MAR from [facility] . Seems unusual for this to be [...] for line - PCP: Carroll Fuentes DO [phone] Kurt Aguilar Pager #[phone] [facility] Medicine documented in this encounter Procedure Notes * Kurt Toribio MD - 08/05/2018 2:04 PM ESTAssociated Order(s): EEG AWAKE, ASLEEP, DROWSY [facility] Department of Neurology Inpatient Routine EEG Report [...] c/b tacrolimus toxicity, papillary renal cancer s/p pamunkey left nephrectomy 2016 who is admitted for [...] 500 mg Oral Nightly Kim, Flori A, LEHR TENDER 500 mg at 08/04/182038 And ??? levETIRAcetam (KEPPRA) tablet 500 mg 500 mg Oral Daily Kim, Flori A, LEHR TENDER 500 mg at 08/05/18 0837 ??? tacrolimus [...] channel digitized electroencephalogram was performed in the [facility] Clinical Neurophysiology Laboratory. The 10/20 international system of electrode placement was used and bipolar and referential electrode montages were recorded. In addition to EEG the patient was monitored for EKGand lateral/vertical eye movements. Video was recorded during the session. The duration of the recording was 30 minutes. TANK FURNACE OPERATOR'S REPORT: Performed by: CM Patient was [...] a h/o kidney transplantation on 11/26/02 and??left pamunkey nephrectomy??in 2016due to the finding of a papillary carcinoma. ??On 06/02 he fell and suffered a fall and SAH and on 04/06 a PEA arrest from hemorrhage due to a ruptured left arm AVF. On last visit to Dr. Rivera on 07/19/18, it was noted: ?? He has not fully recovered from his hemorrhagic??(ruptured left arm AVF) PEA/??asystolic arrest (see previous admit to [facility])his??BPs are also higher than baseline and he [...] Acute kidney injury Oliver Lynn MD 07/29/18 [id number] * John Bloom MD - 07/29/2018 4:12 PM EST EM attending brief outside phone call note: Christy Ambrose is a 57 y.o. who I was called about from [facility] about a patient at [facility]. The patient will be evaluated in the Emergency Department for uremia Pt. Is a 57 yo m with a h/o kidney transplantation on 11/26/02 and??left pamunkey nephrectomy??in 2017due to the finding of a papillary carcinoma. ??On 06/02 he fell and suffered a fall and SAH and on 04/06 a PEA arrest from hemorrhage due to a ruptured left arm AVF. On last visit to Dr. Rivera on 07/19/18, it was noted: He has not fully recovered from his hemorrhagic (ruptured left arm AVF) PEA/ asystolic arrest (seeprevious admit to [facility])his??BPs are also higher than baseline and he [...] dialysis. No inpatient bed currently available at [facility]. Pt. will come to our ED for [...] not like coffee Patient Specific Goals -- Smith, discharge Patient Specific Interventions -- Explained plan [...] Does not like coffee Patient Specific Goals Smith, discharge Patient Specific Interventions Explained plan of [...] not like coffee Patient Specific Goals -- Smith, discharge Patient Specific Interventions -- Explained plan [...] Does not like coffee Patient Specific Goals Smith, discharge Patient Specific Interventions Explained plan of [...] Discharge Disposition: (P) inpatient rehabilitation facility Pager: [phone] Rajeev Posadas OT 08/05/2018 Occupational Therapy Rehabilitation [...] Assessment/Treatment Impairments (Bed Mobility) balance impaired Scoot/Bridge Smith (Bed Mobility) contact guard assist [place]-zb-Pnj Smith (Bed Mobility) contact guard assist Zvt-ug-Eldwdl Smith (Bed Mobility) contact guard assist Assistive Device (Bed Mobility) bed rails;other (see comments) (HOB elevated ) Comment (Bed Mobility) Pt impuslive moving to EOB requiring 1 v/c for self pacing. Transfer Assessment/Treatment Smith (Sit-Stand Transfers) 2 person assist required;contact guard assist Smith (Stand-Sit Transfers) 2 person assist required;contact guard assist Vaq-Aqtgk-Zgk Assistive Device (Transfers) rolling walker Impairments (Transfers) balance impaired;other (see comments) (Reduced awareness of need for safety. ) Comment (Transfers) Pt requires multiple verbal cues to stand EOB and not begin walking. Pt did begin walking w/o shoes on despite education proviided a few minutes before about need for shoes on. Gait Assessment/Treatment Assistive Device (Gait) rolling walker Smith (Gait) 2 person assist required;minimum assist (75% [...] order to determine a baseline. Cognition Goal, Smith Level (ACL administered on 08/05/18.) Cognition Goal, Outcome Achieved goal met Grooming Goal Grooming Goal, Date Established 08/04/18 Grooming Goal, Time to Achieve 2 wks Grooming Goal, Activity Type Pt will complete grooming standing at sink w/ CGA initating safe placement of FWW. Grooming Goal, Smith Level 2 person assist required;minimum assist (75% [...] w/ SBA in standing. LB Dressing Goal, Smith Level 2 person assist required;minimum assist (75% [...] facility(can tolerate acute) Patty Marrero, PT Pager: [phone] Inpatient Physical Therapy 08/05/18 0923 Rehab Evaluation Document Type therapy note (daily [...] (Bed Mobility) bed rails (HOB elevated) Scoot/Bridge Smith (Bed Mobility) contact guard assist;verbal cues required Svkshk-dd-Bxr Smith (Bed Mobility) contact guard assist;verbal cues required Efs-gt-Xmvgrp Smith (Bed Mobility) contact guard assist;verbal cues required Impairments (Bed Mobility) balance impaired;strength decreased Comment (Bed Mobility) Pt impulsive yet redirectable come to EOB. Max cues for safety Transfer Assessment/Treatment Smith (Sit-Stand Transfers) not appropriate to assess;contact guard assist;verbal cues required Smith (Stand-Sit Transfers) 2 person assist required;contact guard assist;verbal cues required Jcy-Sjehq-Jqx Assistive Device (Transfers) rolling walker Impairments (Transfers) balance impaired;strength decreased (reduced safety awareness) Comment (Transfers) Pt required frequent cueing for safety and hands on assistx2 for walker management and pt safety. Gait Assessment/Treatment Smith (Gait) 2 person assist required;minimum assist (75% [...] good balance Sitting Balance: Dynamic fair balance Qxs-qx-Auaaz Balance fair balance Standing Balance: Static fair [...] to sit/sit to supine Bed Mobility Goal, Smith Level independent Bed Mobility Goal, Date Goal Reviewed 08/05/18 Bed Mobility Goal, Outcome Achieved goal ongoing Gait Training Goal Gait Training Goal, Date Established 08/04/18 Gait Training Goal, Time to Achieve 30 days Gait Training Goal, Smith Level supervision required Gait Training Goal, Assist [...] 30 days Transfer Training Goal, Activity Type aok-sf-lgien/goevy-dh-ntx;jde-qz-eydnt/hbkdj-br-jpp Transfer Train Goal, Smith Level supervision required Transfer Training Goal, Assist [...] Anticipated Discharge Disposition: (P) inpatient rehabilitation facility Pager:[phone] Rajeev Posadas OT 08/04/2018 Occupational Therapy Rehabilitation [...] poor historian, pt first reported living in [place], then stated he lived in an apartment in [facility]. Home set up unclear. Pt stated he [...] (Bed Mobility) balance impaired;coordination impaired;strength decreased Scoot/Bridge Smith (Bed Mobility) contact guard assist;verbal cues required Nzktwl-re-Ddi Smith (Bed Mobility) contact guard assist Ein-fb-Rzaztf Smith (Bed Mobility) contact guard assist Assistive Device (Bed Mobility) bed rails (HOB elevated) Comment (Bed Mobility) Pt came to EOB with cues and CGA for safety due to impulsivity. Pt able to sit EOB unsupported. Transfer Assessment/Treatment Smith (Sit-Stand Transfers) 2 person assist required;minimum assist (75% patient effort);verbal cues required Smith (Stand-Sit Transfers) 2 person assist required;minimum assist (75% patient effort);verbal cues required;moderate assist (50% patient effort) Qgp-Ljdoo-Fws Assistive Device (Transfers) rolling walker Impairments (Transfers) balance impaired;coordination impaired;strength decreased;motor control impaired Comment (Transfers) Pt attempted sit<>stand with initial posterior LOB corrected by therapist. Max cues for safety and sequencing. Gait Assessment/Treatment Impairments (Gait) balance impaired;coordination impaired;motor control impaired;strength decreased Assistive Device (Gait) rolling walker Deviations (Gait) dez decreased;step length decreased;stride length decreased Gait Pattern Analysis swing-through gait Smith (Gait) moderate assist (50% patient effort);2 person [...] inpatient rehabilitation facility Patty Marrero, PT Pager: [phone] Inpatient Physical Therapy 2017 PT Evaluation Code [...] poor historian, pt first reported living in [place], then stated he lived in an apartment in [facility]. Home set up unclear Functional Level Prior [...] (Bed Mobility) bed rails (HOB elevated) Scoot/Bridge Smith (Bed Mobility) contact guard assist;verbal cues required Yxgnyw-rn-Igt Smith (Bed Mobility) contact guard assist Bgr-ue-Mihswg Smith (Bed Mobility) contact guard assist Impairments (Bed Mobility) balance impaired;coordination impaired;strength decreased Comment (Bed Mobility) Pt came to EOB with cues and CGA for safety due to impulsivity. Pt able to sit EOB unsupported. Transfer Assessment/Treatment Smith (Sit-Stand Transfers) 2 person assist required;minimum assist (75% patient effort);verbal cues required Smith (Stand-Sit Transfers) 2 person assist required;minimum assist (75% patient effort);verbal cues required;moderate assist (50% patient effort) Ful-Bhgmg-Gds Assistive Device (Transfers) rolling walker Impairments (Transfers) balance impaired;coordination impaired;strength decreased;motor control impaired Comment (Transfers) Pt attempted sit<>stand with initial posterior LOB corrected by therapist. Max cues for safety and sequencing. Gait Assessment/Treatment Smith (Gait) moderate assist (50% patient effort);2 person [...] good balance Sitting Balance: Dynamic fair balance Ccc-si-Kuwvi Balance poor balance Standing Balance: Static fair [...] to sit/sit to supine Bed Mobility Goal, Smith Level independent Gait Training Goal Gait Training Goal, Date Established 08/04/18 Gait Training Goal, Time to Achieve 30 days Gait Training Goal, Smith Level supervision required Gait Training Goal, Assist [...] 30 days Transfer Training Goal, Activity Type gad-sx-bzylq/fjlyd-tg-hfp;hqv-ei-fmmai/ntmzb-hl-act Transfer Train Goal, Smith Level supervision required Transfer Training Goal, Assist [...] c/b tacrolimus toxicity, 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 KIDNEY TRANSPLANT KIDNEY TRANSPLANT / RECIPIENT/LT Procedure Date: 11/26/2002 ? ? PRO DEBRIDEMENT SUBCUTANEOUS TISSUE 20 SQCM/< Left 02/20/2016 DEBRIDEMENT SKIN AND SUBCU, HEAD/NECK performed by Miguel Angel Moreno MD at [facility] MAIN OR ??? PRO DECOMPRESS FOREARM, BRACH ART EXPLOR Left 04/06/2018 FASCIOTOMY, FOREARM, WITH BRACHIAL ARTERY EXPLORATION (WRVU 8.41) performed by Lida Peter MDat [facility] MAIN OR ??? PRO DIRECT REPAIR RUPTURED ANEURYSM, AXILLO-BRACHIAL ARM INCIS Left 04/06/2018 @REPAIR, RUPTURED AXILLARY OR BRACHIAL ARTERY ANEURYSM BY ARM INCISION (WRVU *) performed by Lida Peter MD at [facility] MAIN OR ??? PRO EXC PAROTD, TOTAL, UNILAT RAD NECK Left 02/05/2016 @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, TOTAL, WITH UNILATERAL RADICAL NECK DISSECTION performed by Miguel Angel Moreno MD at [facility] OR ??? PRO EXC SKIN MALIG 3.1-4CM FACE, FACIAL Left 02/05/2016 EXC MALIGNANT LESION, 3.1 TO 4.0CM, FACE performed by Miguel Angel Moreno MD at [facility] MAIN OR ? ? PRO EXC SKIN MALIG >4CM TRUNK, ARM, LEG 04/19/2012 EXC MALIGNANT LESION, MICHAEL > 4.0CM, TRUNK performed by SABRINA SANCHEZ at [facility] OR ??? PRO LAP, RADICAL NEPHRECTOMY Left 05/31/2017 @LAPAROSCOPY, RADICAL NEPHRECTOMY (WRVU 25.06) performed by Jax Mills MD at [facility] OR ??? PRO LIGATN ANGIOACCESS AV FISTULA Left 04/19/2018 LIGATION OR BANDING OF HEMODIALYSIS FISTULA OR GRAFT UPPER EXTREMITY (WRVU 6.25) performed by Odalis Elias MD at [facility] MAIN OR ??? PRO NEGATIVE PRESSURE WOUND THERAPY, LESS THAN OR EQUAL TO 50 SQCM Left 04/19/2018 DRESSING CHANGE (VAC ASSISTED) UP TO 50SQ.CM (WRVU 0.55) performed by Odalis Elias MD [facility] OR ??? PRO REBL VES GRAFT, UP EXTREM Left 04/06/2018 REPAIR BLOOD VESSEL WITH GRAFT OTHER THAN VEIN, UPPER EXTREMITY (WRVU 15.83) performed by Lida Peter MD at [facility] MAIN OR ??? PRO RELIEVE PRESSURE ON NERVE(S) Left 04/06/2018 (MSURG) CARPAL TUNNEL (WRVU 4.82) performed by Silviano Sparks MD at [facility] MAIN OR ??? PRO REPAIR INTERMEDIATE S/A/T/E 2.6-7.5 CM 04/19/2012 REPAIR INTERMEDIATE WOUND, (NO HANDS OR FEET) 2.6 TO 7.5CM, UPPER EXTREMITY performed by SABRINA SANCHEZ at [facility] MAIN OR ? ? PRO REPAIR INTERMEDIATE S/A/T/E > 30.0 CM Left 04/14/2018 REPAIR INTERMEDIATE WOUND, (NO HANDS OR FEET) >30.0CM, UPPER EXTREMITY (WRVU 5) performed by Yimi Easton MD at [facility] MAIN OR ??? PRO REVISE MEDIAN N/CARPAL TUNNEL SURG Left 04/06/2018 MEDIAN NERVE DECOMPRESSION (CARPAL TUNNEL RELEASE) (WRVU 4.97) performed by Lida Peter MD [facility] MAIN OR ? ? PRO SPLIT GRFT TRUNK, ARM, LEG <100SQCM Left 04/26/2018 SPLIT THICK SKIN GRAFT,100 SQ CM OR LESS, ARMS (WRVU 9.9) performed by Silviano Sparks MD at [facility] MAIN OR ? ? PRO SPLIT GRFT, HEAD, FAC, HAND, FEET <100SQCM N/A 02/20/2016 SPLIT THICKNESS SKIN SPLIT GRAFT,100SQ CM OR LESS, NECK performed by Miguel Angel Moreno MD at [facility] MAIN OR ??? PRO SPLIT GRFT, TRUNK, ARM, LEG EA 100SQCM N/A 04/26/2018 EA.ADDITIONAL 100SQ.CM STSG (WRVU 1.72) performed by Silviano Sparks MD at [facility] MAIN OR ??? PRO UPPER GI ENDOSCOPY, BIOPSY N/A 05/13/2017 EGD WITH BIOPSY (WRVU 2.49) performed by Aditya Barrera MD at [facility] ENDOSCOPY ??? PRO VASCULAR SURGERY PROCEDURE UNLIST Left 11/20/2015 LIGATION\REPAIR AV FISTULA performed by Camilo Ireland MD at [facility] MAIN OR ??? PRO VASCULAR SURGERY PROCEDURE UNLIST Left 11/20/2015 EXCISION VEIN FROM HAND performed by Camilo Ireland MD at [facility] MAIN OR ??? US RENAL TRANSPLANT BIOPSY 12/31/2010 ??? US RENAL TRANSPLANT RIGHT Right 06/04/2018 US Renal Transplant Right 06/04/2018 [facility] RAD ULTRASOUND Home Medications: No current facility-administered [...] Not on file Occupational History ??? 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 Consider TELECOMMUNICATIONS CABLE JOINTER consult for full evaluation and diet recommendations. [...] Continue lico Mtz MD Department of Neurology [facility] * Plan of Care - Dona Hickey [...] 2-assist. Around 1802 pt ws observed by SERVICE WRITER ADVISOR that pt was not following direction and [...] - Tunneled Line 07/30/2018 Walt Lin MD [facility] RAD ??? KIDNEY TRANSPLANT KIDNEY TRANSPLANT / RECIPIENT/LT Procedure Date: 11/26/2002 ? ? PRO DEBRIDEMENT SUBCUTANEOUS TISSUE 20 SQCM/< Left 02/20/2016 DEBRIDEMENT SKIN AND SUBCU, HEAD/NECK performed by Miguel Angel Moreno MD at [facility] MAIN OR ??? PRO DECOMPRESS FOREARM, BRACH ART EXPLOR Left 04/06/2018 FASCIOTOMY, FOREARM, WITH BRACHIAL ARTERY EXPLORATION (WRVU 8.41) performed by Lida Peter MDat [facility] MAIN OR ??? PRO DIRECT REPAIR RUPTURED ANEURYSM, AXILLO-BRACHIAL ARM INCIS Left 04/06/2018 @REPAIR, RUPTURED AXILLARY OR BRACHIAL ARTERY ANEURYSM BY ARM INCISION (WRVU *) performed by Lida Peter MD at [facility] MAIN OR ??? PRO EXC PAROTD, TOTAL, UNILAT RAD NECK Left 02/05/2016 @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, TOTAL, WITH UNILATERAL RADICAL NECK DISSECTION performed by Miguel Angel Moreno MD at [facility] OR ??? PRO EXC SKIN MALIG 3.1-4CM FACE, FACIAL Left 02/05/2016 EXC MALIGNANT LESION, 3.1 TO 4.0CM, FACE performed by Miguel Angel Moreno MD at [facility] OR ? ? PRO EXC SKIN MALIG >4CM TRUNK, ARM, LEG 04/19/2012 EXC MALIGNANT LESION, MICHAEL > 4.0CM, TRUNK performed by SABRINA SANCHEZ at [facility] OR ??? PRO LAP, RADICAL NEPHRECTOMY Left 05/31/2017 @LAPAROSCOPY, RADICAL NEPHRECTOMY (WRVU 25.06) performed by Jax Mills MD at [facility] OR ??? PRO LIGATN ANGIOACCESS AV FISTULA Left 04/19/2018 LIGATION OR BANDING OF HEMODIALYSIS FISTULA OR GRAFT UPPER EXTREMITY (WRVU 6.25) performed by Odalis Elias MD at [facility] MAIN OR ??? PRO NEGATIVE PRESSURE WOUND THERAPY, LESS THAN OR EQUAL TO 50 SQCM Left 04/19/2018 DRESSING CHANGE (VAC ASSISTED) UP TO 50SQ.CM (WRVU 0.55) performed by Odalis Elias MD [facility] OR ??? PRO REBL VES GRAFT, UP EXTREM Left 04/06/2018 REPAIR BLOOD VESSEL WITH GRAFT OTHER THAN VEIN, UPPER EXTREMITY (WRVU 15.83) performed by Lida Peter MD at [facility] OR ??? PRO RELIEVE PRESSURE ON NERVE(S) Left 04/06/2018 (MSURG) CARPAL TUNNEL (WRVU 4.82) performed by Silviano Sparks MD at [facility] OR ??? PRO REPAIR INTERMEDIATE S/A/T/E 2.6-7.5 CM 04/19/2012 REPAIR INTERMEDIATE WOUND, (NO HANDS OR FEET) 2.6 TO 7.5CM, UPPER EXTREMITY performed by SABRINA SANCHEZ at [facility] OR ? ? PRO REPAIR INTERMEDIATE S/A/T/E > 30.0 CM Left 04/14/2018 REPAIR INTERMEDIATE WOUND, (NO HANDS OR FEET) >30.0CM, UPPER EXTREMITY (WRVU 5) performed by Yimi Easton MD at [facility] MAIN OR ??? PRO REVISE MEDIAN N/CARPAL TUNNEL SURG Left 04/06/2018 MEDIAN NERVE DECOMPRESSION (CARPAL TUNNEL RELEASE) (WRVU 4.97) performed by Lida Peter MD [facility] MAIN OR ? ? PRO SPLIT GRFT TRUNK, ARM, LEG <100SQCM Left 04/26/2018 SPLIT THICK SKIN GRAFT,100 SQ CM OR LESS, ARMS (WRVU 9.9) performed by Silviano Sparks MD at [facility] MAIN OR ? ? PRO SPLIT GRFT, HEAD, FAC, HAND, FEET <100SQCM N/A 02/20/2016 SPLIT THICKNESS SKIN SPLIT GRAFT,100SQ CM OR LESS, NECK performed by Miguel Angel Moreno MD at [facility] MAIN OR ??? PRO SPLIT GRFT, TRUNK, ARM, LEG EA 100SQCM N/A 04/26/2018 EA.ADDITIONAL 100SQ.CM STSG (WRVU 1.72) performed by Silviano Sparks MD at [facility] MAIN OR ??? PRO UPPER GI ENDOSCOPY, BIOPSY N/A 05/13/2017 EGD WITH BIOPSY (WRVU 2.49) performed by Aditya Barrera MD at [facility] ENDOSCOPY ??? PRO VASCULAR SURGERY PROCEDURE UNLIST Left 11/20/2015 LIGATION\REPAIR AV FISTULA performed by Camilo Ireland MD at [facility] MAIN OR ??? PRO VASCULAR SURGERY PROCEDURE UNLIST Left 11/20/2015 EXCISION VEIN FROM HAND performed by Camilo Ireland MD at [facility] MAIN OR ??? US RENAL TRANSPLANT BIOPSY 12/31/2010 ??? 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 Current Coping/Education/Information Needs: Patient has a history of TBI at age of 19. Current Functional Ability: Currently requiring assistive person for ADL's and ambulation/mobility. Functional Status Prior to Admission: Independent Home Environment: Pr brother, pt has been in facility residence since 04/06/18: [facility] (under private pay), [address] [place] [address] . Prior to this was at [address] [address] for two weeks.. Mother-Ilda, has now been placed for residence in [facility] in [place], [place] Address: [address] [place] [id number] (Ginger-RN Director and her son, Tab-Coordinator). Application for pt for admission to [facility] was submitted in June. [address] [address] Social & Family Supports/Community Resources: Mother brother Extended Emergency Contact Information Primary Emergency Contact: Lucas Ambrose Address: [address] [place] [address] [employer] [place] Relation: Sibling Secondary Emergency Contact: Yenifer Frausto Address: [address] [place] [address] [place] Relation: Aunt/Uncle Behavioral Health History: PMH TBI Substance Use/Abuse: Tobacco hx: denies ETOH hx: denies Illicit drug use hx: denies Other Pertinent/Service Specific Information: n/a Health/Prescription Coverage: Primary Insurance: [place] Payor[place] / Plan: [place] PRIMARY CARE PL[place] / Product Type: *No Product type* / Secondary Insurance: N/A Prescription Coverage: same Preferred Pharmacy: [id number] - [place], [place] - [address] [facility] [address] [facility] [address] [id number] - [place], [place] - [address] [facility] [address] [facility] [id number] [address] [id number] [place], [place] - [address] [facility] [address] [facility] [id number] [facility] - [address] [facility] [address] [facility] [address] Other: pt has application for [facility] for Care/Power Machine Operator Care Medicaid. Submitted-over resourcesand brother expects he will remain private pay for a while before he may meet program eligibility limits. Primary Care Provider: Carroll Fuentes DO [phone] Patient/Caregiver Goals of Treatment: per Lucas parker, Pt continues to require supervision. Whether pt needs to return first to SNF vs. possible direct admit to [facility] TBD. Per brother-HD is not a barrier for [facility] (would target [facility] for HD. Potential Needs for Transition of Care: Rehab/SNF: as above-being assessed Home Health: unknown DME: unknown Dialysis: new HD as noted-? Chair @ [facility]? Community Resources: n/a Transportation: TBD Other: n/a Anticipated Barriers to Discharge/Special Considerations: none anticipated Assessment: Pt being supported with private pay at SNF recently. Family has been w/w pt for possible admission to [facility] if pt does not require SNF LOC. Pt with TBI and new HD needs. Assessments continue for plan of care. At least three HD runs needs for securing HD chair. Other care needs TBD for d/c planning. Plan: Following for CONVENTION SERVICES DIRECTOR and care management support through disposition. Will call [facility] to discuss status of pt's application for admission. A member of the Care Management team will continue to monitor progress, follow for continuity of care and assist with transition of care planning. JIMENA PARK Pager: [phone] * Plan of Care - Clarence Tadeo [...] REASON FOR CONSULTATION: Referred for evaluation for COMMUNITY HEALTH SPECIALIST in a failed transplant HPI:Mr. Christy Ambrose is a??well known??57??y.o. 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 Past Medical History: Diagnosis Date ??? BP [...] performed by Miguel Angel Moreno MD at [facility] MAIN OR ??? PRO DECOMPRESS FOREARM, BRACH ART EXPLOR Left 04/06/2018 FASCIOTOMY, FOREARM, WITH BRACHIAL ARTERY EXPLORATION (WRVU 8.41) performed by Lida Peter MDat [facility] OR ??? PRO DIRECT REPAIR RUPTURED ANEURYSM, AXILLO-BRACHIAL ARM INCIS Left 04/06/2018 @REPAIR, RUPTURED AXILLARY OR BRACHIAL ARTERY ANEURYSM BY ARM INCISION (WRVU *) performed by Lida Peter MD at [facility] OR ??? PRO EXC PAROTD, TOTAL, UNILAT RAD NECK Left 02/05/2016 @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, TOTAL, WITH UNILATERAL RADICAL NECK DISSECTION performed by Miguel Angel Moreno MD at [facility] OR ??? PRO EXC SKIN MALIG 3.1-4CM FACE, FACIAL Left 02/05/2016 EXC MALIGNANT LESION, 3.1 TO 4.0CM, FACE performed by Miguel Angel Moreno MD at [facility] OR ? ? PRO EXC SKIN MALIG >4CM TRUNK, ARM, LEG 04/19/2012 EXC MALIGNANT LESION, MICHAEL > 4.0CM, TRUNK performed by SABRINA SANCHEZ at [facility] OR ??? PRO LAP, RADICAL NEPHRECTOMY Left 05/31/2017 @LAPAROSCOPY, RADICAL NEPHRECTOMY (WRVU 25.06) performed by Jax Mills MD at [facility] OR ??? PRO LIGATN ANGIOACCESS AV FISTULA Left 04/19/2018 LIGATION OR BANDING OF HEMODIALYSIS FISTULA OR GRAFT UPPER EXTREMITY (WRVU 6.25) performed by Odalis Elias MD at [facility] OR ??? PRO NEGATIVE PRESSURE WOUND THERAPY, LESS THAN OR EQUAL TO 50 SQCM Left 04/19/2018 DRESSING CHANGE (VAC ASSISTED) UP TO 50SQ.CM (WRVU 0.55) performed by Odalis Elias MD [facility] OR ??? PRO REBL VES GRAFT, UP EXTREM Left 04/06/2018 REPAIR BLOOD VESSEL WITH GRAFT OTHER THAN VEIN, UPPER EXTREMITY (WRVU 15.83) performed by Lida Peter MD at [facility] MAIN OR ??? PRO RELIEVE PRESSURE ON NERVE(S) Left 04/06/2018 (MSURG) CARPAL TUNNEL (WRVU 4.82) performed by Silviano Sparks MD at [facility] MAIN OR ??? PRO REPAIR INTERMEDIATE S/A/T/E 2.6-7.5 CM 04/19/2012 REPAIR INTERMEDIATE WOUND, (NO HANDS OR FEET) 2.6 TO 7.5CM, UPPER EXTREMITY performed by SABRINA SANCHEZ at [facility] MAIN OR ? ? PRO REPAIR INTERMEDIATE S/A/T/E > 30.0 CM Left 04/14/2018 REPAIR INTERMEDIATE WOUND, (NO HANDS OR FEET) >30.0CM, UPPER EXTREMITY (WRVU 5) performed by Yimi Easton MD at [facility] MAIN OR ??? PRO REVISE MEDIAN N/CARPAL TUNNEL SURG Left 04/06/2018 MEDIAN NERVE DECOMPRESSION (CARPAL TUNNEL RELEASE) (WRVU 4.97) performed by Lida Peter MD [facility] MAIN OR ? ? PRO SPLIT GRFT TRUNK, ARM, LEG <100SQCM Left 04/26/2018 SPLIT THICK SKIN GRAFT,100 SQ CM OR LESS, ARMS (WRVU 9.9) performed by Silviano Sparks MD at [facility] MAIN OR ? ? PRO SPLIT GRFT, HEAD, FAC, HAND, FEET <100SQCM N/A 02/20/2016 SPLIT THICKNESS SKIN SPLIT GRAFT,100SQ CM OR LESS, NECK performed by Miguel Angel Moreno MD at [facility] MAIN OR ??? PRO SPLIT GRFT, TRUNK, ARM, LEG EA 100SQCM N/A 04/26/2018 EA.ADDITIONAL 100SQ.CM STSG (WRVU 1.72) performed by Silviano Sparks MD at [facility] MAIN OR ??? PRO UPPER GI ENDOSCOPY, BIOPSY N/A 05/13/2017 EGD WITH BIOPSY (WRVU 2.49) performed by Aditya Barrera MD at [facility] ??? PRO VASCULAR SURGERY PROCEDURE UNLIST Left 11/20/2015 LIGATION\REPAIR AV FISTULA performed by Camilo Ireland MD at [facility] MAIN OR ??? PRO VASCULAR SURGERY PROCEDURE UNLIST Left 11/20/2015 EXCISION VEIN FROM HAND performed by Camilo Ireland MD at [facility] MAIN OR ??? US RENAL TRANSPLANT BIOPSY 12/31/2010 ??? US RENAL TRANSPLANT RIGHT Right 06/04/2018 US Renal Transplant Right 06/04/2018 [facility] RAD ULTRASOUND Family History Problem Relation [...] nephropathy,DGF and prograf toxicity also had left pamunkey kidney nephrectomy due to papillary ca in [...] w/ Dr.Graber Nichole Rodríguez MD Nephrology Fellow #[id number] Associated attestation - Gaby Mesa MD - 07/31/2018 5:24 PM EST Renal Attending Inpatient Consult We are asked by Dr Flynn to see Christy Ambrose in consultation regarding initiation of hemodialysis. [...] below. ? Electronically signed by: Marcia Mathew [facility] ([phone]), at 08/18/2018 5:28 PM Narrative 08/18/2018 5:28 [...] EST) Phosphorus 3.1 2.5 - 4.5 mg/dL [facility] Blood specimen (specimen) 2018 5:56 AM EST 2018 6:28 AM EST Narrative Resulting Agency Comment Spec In Lab Erwin Dolan MD CHEMISTRY ORDERABLE S [facility] [place] [address] * (ABNORMAL) Basic Metabolic Panel (non-fasting) (2018 5:56 AM EST) Glucose 88 65 - 199 mg/dL [facility] Comment:Diabetes: >=200 mg/d L plus symptoms Blood Urea Nitrogen 27(H) 10 - 20 mg/dL [facility] Creatinine 4.69(H) 0.80 - 1.50 mg/dL [facility] Sodium 134(L) 135 - 145 mmol/L [facility] Potassium 4.0 3.5 - 5.0 mmol/L [facility] Comment: Please note: ??Patients with WBC >100,000 may have falsely elevated Potassium levels. ??For accurate Potassium quantification in these patients send serum separator tube (gold top) for subsequent determinations. ??Contact the Clinical Chemistry Laboratory if there are any questions. Chloride 98 98 - 107 mmol/L [facility] Carbon Dioxide 25 22 - 31 mmol/L [facility] Anion Gap 11 5 - 15 mmol/L [facility] Calcium 7.7(L) 8.5 - 10.5 mg/dL [facility] Est Glomerular Filtration Rate 13(L) >=60 mL/min/1. 73 m?? [facility] Comment: The eGFR was calculated using the CKD-EPI equation. As with all creatinine based estimates of kidney function, eGFR values calculated with the CKD-EPI equation are not accurate in patients with acute kidney failure, extremes of body mass or the acutely ill. [email or web address]nkf eGFR 15(L) >=60 mL/min/1. 73 m?? [facility] Comment: The eGFR was calculated using the CKD-EPI equation. As with all creatinine based estimates of kidney function, eGFR values calculated with the CKD-EPI equation are not accurate in patients with acute kidney failure, extremes of body mass or the acutely ill. [email or web address] Blood specimen (specimen) 2018 5:56 AM EST 2018 6:28 AM EST Narrative Resulting Agency Comment Spec In Lab Erwin Dolan MD CHEMISTRY ORDERABLE S [facility] [place] [address] * (ABNORMAL) PTH (2018 5:56 AM EST) Parathyroid Hormone 122(H) 15 - 65 pg/mL [facility] Blood specimen (specimen) 2018 5:56 AM EST 2018 6:28 AM EST Narrative Resulting Agency Comment Spec In Lab Erwin Dolan MD CHEMISTRY ORDERABLE S [facility] [place] [address] * (ABNORMAL) Basic Metabolic Panel (non-fasting) (08/06/2018 6:32 AM EST) Glucose 90 65 - 199 mg/dL [facility] Comment:Diabetes: >=200 mg/d L plus symptoms Blood Urea Nitrogen 26(H) 10 - 20 mg/dL [facility] Creatinine 4.90(H) 0.80 - 1.50 mg/dL [facility] Sodium 141 135 - 145 mmol/L [facility] Potassium 3.7 3.5 - 5.0 mmol/L [facility] Comment: Please note: ??Patients with WBC >100,000 may have falsely elevated Potassium levels. ??For accurate Potassium quantification in these patients send serum separator tube (gold top) for subsequent determinations. ??Contact the Clinical Chemistry Laboratory if there are any questions. Chloride 99 98 - 107 mmol/L [facility] Carbon Dioxide 25 22 - 31 mmol/L [facility] Anion Gap 17(H) 5 - 15 mmol/L [facility] Calcium 7.6(L) 8.5 - 10.5 mg/dL [facility] Est Glomerular Filtration Rate 12(L) >=60 mL/min/1. 73 m?? [facility] Comment: The eGFR was calculated using the CKD-EPI equation. As with all creatinine based estimates of kidney function, eGFR values calculated with the CKD-EPI equation are not accurate in patients with acute kidney failure, extremes of body mass or the acutely ill. [email or web address] eGFR 14(L) >=60 mL/min/1. 73 m?? [facility] Comment: The eGFR was calculated using the CKD-EPI equation. As with all creatinine based estimates of kidney function, eGFR values calculated with the CKD-EPI equation are not accurate in patients with acute kidney failure, extremes of body mass or the acutely ill. [email or web address] Blood specimen (specimen) 08/06/2018 6:32 AM EST 08/06/2018 7:02 AM EST Narrative Resulting Agency Comment Spec In Lab Sabrina Flynn III, MD CHEMISTRY ORDERABLES [facility] [place] [address] * EEG awake, asleep, drowsy, routine (08/05/2018 2:04 PM EST) Narrative Kurt Toribio MD - 08/05/2018 2:04 PM EST Kurt Toribio MD ? 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 500 mg at 08/04/182038 And ? [...] 650 mg ??650 mg Oral Q6H PRN Kurt Aguilar MD ?? 650 mg at 07/30/18 1738 ? ? senna-docusate (PERICOLACE) 8.6-50 mg per tablet 2 tablet ??2 tablet Oral BID PRN Kurt Aguilar MD ? amLODIPine (NORVASC) tablet 10 mg ??10 mg Oral Daily Kurt Aguilar MD ?? 10 mg at 08/05/18 0836 METHODS: A 21 channel digitized electroencephalogram was performed in the [facility] Clinical Neurophysiology Laboratory. The 10/20 international system of electrode placement was used and bipolar and referential electrode montages were recorded. ??In addition to EEG the patient was monitored for EKG and lateral/vertical eye movements. Video was recorded during the session. The duration of the recording was 30 minutes. TANK FURNACE OPERATOR'S REPORT:Performed by: CM Patient was not [...] EST) Glucose 91 65 - 199 mg/dL [facility] Comment:Diabetes: >=200 mg/d L plus symptoms Blood Urea Nitrogen 35(H) 10 - 20 mg/dL [facility] Creatinine 5.61(H) 0.80 - 1.50 mg/dL [facility] Sodium 138 135 - 145 mmol/L [facility] Potassium 4.1 3.5 - 5.0 mmol/L [facility] Comment: Please note: ??Patients with WBC >100,000 may have falsely elevated Potassium levels. ??For accurate Potassium quantification in these patients send serum separator tube (gold top) for subsequent determinations. ??Contact the Clinical Chemistry Laboratory if there are any questions. Chloride 101 98 - 107 mmol/L [facility] Carbon Dioxide 23 22 - 31 mmol/L [facility] Anion Gap 14 5 - 15 mmol/L [facility] Calcium 7.6(L) 8.5 - 10.5 mg/dL [facility] Est Glomerular Filtration Rate 10(L) >=60 mL/min/1. 73 m?? [facility] Comment: The eGFR was calculated using the CKD-EPI equation. As with all creatinine based estimates of kidney function, eGFR values calculated with the CKD-EPI equation are not accurate in patients with acute kidney failure, extremes of body mass or the acutely ill. [email or web address] CITYnkf eGFR 12(L) >=60 mL/min/1. 73 m?? [facility] Comment: The eGFR was calculated using the CKD-EPI equation. As with all creatinine based estimates of kidney function, eGFR values calculated with the CKD-EPI equation are not accurate in patients with acute kidney failure, extremes of body mass or the acutely ill. [email or web address] CITYnkf Blood specimen (specimen) 08/04/2018 4:34 AM EST 08/04/2018 5:17 AM EST Narrative Resulting Agency Comment Spec In Lab Sabrina Flynn III, MD CHEMISTRY ORDERABLES [facility] [place] [address] * Differential, Automated (08/03/2018 7:09 PM EST) Neutrophil % 64.6 % [facility] Neutrophil Absolute 3.02 1.70 - 6.10 x10(3)/[facility] Lymph % 20.5 % [facility] Lymphocytes Abs 1.0 0.9 - 3.2 x10(3)/[facility] Monocyte % 12.0 % [facility] Monocyte Abs 0.6 0.3 - 0.9 x10(3)/[facility] Eos % 2.1 % [facility] Eosinophils Abs 0.1 0.0 - 0.4 x10(3)/[facility] Basophil % 0.4 % [facility] Baso Absolute 0.0 0.0 - 0.1 x10(3)/[facility] Immature Gran % 0.40 % [facility] Comment: Immature granulocytes(IG's)percentage and absolute count will include metamyelocytes, myelocytes, and promyelocytes. Blood smears from CBCs yielding IG's will be scanned manually for concordance. If this scan disagrees with the automated IG or if promyelocytes are noted, a manual differential will be performed. Immature Gran Absolute 0.02 0.00 - 0.04 x10(3)/[facility] Blood specimen (specimen) 08/03/2018 7:09 PM EST 08/03/2018 7:17 PM EST Narrative Resulting Agency Comment Spec In Lab John Rose MD HEMATOLOGY ORDERABLE S [facility] [place] [address] * (ABNORMAL) Hemogram (08/03/2018 7:09 PM EST) White Blood Cell 4.7 4.0 - 9.5 x10(3)/mc L [facility] Red Blood Cell 3.31(L) 4.58 - 5.54 x10(6)/mc L [facility] Hemoglobin 9.2(L) 13.7 - 16.5 gm/dL [facility] Hematocrit 28.6(L) 40.5 - 48.5 % [facility] Mean Cell Volume 86.4 82.9 - 93.1 fL [facility] Mean Cell Hemoglobin 27.8 27.5 - 32.1 pg [facility] Mean Cell Hemoglobin Concentration 32.2 32.0 - 35.7 gm/dL [facility] Platelet 149 145 - 357 x10(3)/mc L [facility] RDW Standard Deviation 52.2(H) 36.0 - 45.0 fL [facility] RDW coefficient of variation 17.0(H) 11.4 - 13.8 % [facility] Mean Platelet Volume 9.4 7.6 - 12.9 fL [facility] NRBC% auto 0.0 % [facility] NRBC Absolute 0.000 0.000 - 0.000 x10(3)/mc L [facility] Blood specimen (specimen) 08/03/2018 7:09 PM EST 08/03/2018 7:17 PM EST Narrative Resulting Agency Comment Spec In Lab John Rose MD HEMATOLOGY ORDERABLE S [facility] [place] [address] * (ABNORMAL) Basic Metabolic Panel (non-fasting) (08/03/2018 7:09 PM EST) Glucose 131 65 - 199 mg/dL [facility] Comment:Diabetes: >=200 mg/d L plus symptoms Blood Urea Nitrogen 33(H) 10 - 20 mg/dL [facility] Creatinine 5.35(H) 0.80 - 1.50 mg/dL [facility] Sodium 137 135 - 145 mmol/L [facility] Potassium 4.7 3.5 - 5.0 mmol/L [facility] Comment: Please note: ??Patients with WBC >100,000 may have falsely elevated Potassium levels. ??For accurate Potassium quantification in these patients send serum separator tube (gold top) for subsequent determinations. ??Contact the Clinical Chemistry Laboratory if there are any questions. Chloride 99 98 - 107 mmol/L [facility] Carbon Dioxide 22 22 - 31 mmol/L [facility] Anion Gap 16(H) 5 - 15 mmol/L [facility] Calcium 8.0(L) 8.5 - 10.5 mg/dL [facility] Est Glomerular Filtration Rate 11(L) >=60 mL/min/1. 73 m?? [facility] Comment: The eGFR was calculated using the CKD-EPI equation. As with all creatinine based estimates of kidney function, eGFR values calculated with the CKD-EPI equation are not accurate in patients with acute kidney failure, extremes of body mass or the acutely ill. [email or web address] CITYnk eGFR 13(L) >=60 mL/min/1. 73 m?? [facility] Comment: The eGFR was calculated using the CKD-EPI equation. As with all creatinine based estimates of kidney function, eGFR values calculated with the CKD-EPI equation are not accurate in patients with acute kidney failure, extremes of body mass or the acutely ill. [email or web address] CITYnkf Blood specimen (specimen) 08/03/2018 7:09 PM EST 08/03/2018 7:17 PM EST Narrative Resulting Agency Comment Spec In Lab Sabrina Flynn III, MD CHEMISTRY ORDERABLES [facility] [place] [address] * (ABNORMAL) APTT (08/03/2018 7:09 PM EST) Partial Thromboplastin Time <20(L) 25 - 37 sec [facility] Comment: Decreased clotting times may be [...] MD HEMATOLOGY ORDERABLE S Performing Organization Address [facility] Co de Phone Number [facility] [place] [address] * Prothrombin Time (08/03/2018 7:09 PM EST) Prothrombin Time 10.7 9.4 - 12.5 sec [facility] International Normalization Ratio 0.9 [facility] Comment: An INR <2.0 [...] MD HEMATOLOGY ORDERABLE S Performing Organization Address [facility] de Phone Number [facility] [place] [address] * EKG 12 Lead (08/03/2018 7:06 PM EST) Ventricular rate 59 BPM MUSE SYSTEM Atrial Rate 59 BPM MUSE SYSTEM P-R Interval 148 ms MUSE SYSTEM QRS Duration 90 ms MUSE SYSTEM Q-T Interval 466 ms MUSE SYSTEM QTC Calculated (Bezet) 461 ms MUSE SYSTEM Calculated P Higginson 61 degrees MUSE SYSTEM Calculated R Higginson 56 degrees MUSE SYSTEM Calculated T Higginson 32 degrees MUSE SYSTEM INTERPRETATION Sinus bradycardia Otherwise normal ECG When compared with ECG of 02-AUG-2018 15:27, Nonspecific T wave abnormality no longer evident in Anterior leads Confirmed by MD DALLAS, OLVIN ([id number]) on 08/04/2018 5:02:20 AM MUSE SYSTEM 08/03/2018 7:06 PM EST 08/04/2018 5:02 AM EST Sabrina Flynn III, MD ECG ORDERABLES Performing Organization Address [facility]/ZIP Co de Phone Number MUSE [...] Glucose, POC 153 65 - 199 mg/dL [facility] Comment: Supplemental ranges: <140 mg/dL before meals <180 mg/dL all other times of the day Blood specimen (specimen) 08/03/2018 6:11 PM EST 08/03/2018 6:11 PM EST Sabrina Flynn III, MD POINT OF CARE TEST O RDERABLES Performing Organization Address [facility]/ZIP Co de Phone Number [facility] [place] [address] * Phosphorus (08/03/2018 4:02 AM EST) [facility] Phosphorus 3.9 2.5 - 4.5 mg/dL [facility] Blood specimen (specimen) 08/03/2018 4:02 AM EST 08/03/2018 4:43 AM EST Narrative Resulting Agency Comment Spec In Lab Sabrina Flynn III, MD CHEMISTRY ORDERABLES Performing Organization Address [facility] Co de Phone Number [facility] [place] [address] * (ABNORMAL) Basic Metabolic Panel (non-fasting) (08/03/2018 4:02 AM EST) Glucose 92 65 - 199 mg/dL [facility] Comment:Diabetes: >=200 mg/d L plus symptoms Blood Urea Nitrogen 29(H) 10 - 20 mg/dL [facility] Comment:delta result recheck ed-KLA Creatinine 4.70(H) 0.80 - 1.50 mg/dL [facility] Comment:delta result recheck ed-KLA Sodium 139 135 - 145 mmol/L [facility] Potassium 4.0 3.5 - 5.0 mmol/L [facility] Comment: Please note: ??Patients with WBC >100,000 may have falsely elevated Potassium levels. ??For accurate Potassium quantification in these patients send serum separator tube (gold top) for subsequent determinations. ??Contact the Clinical Chemistry Laboratory if there are any questions. Chloride 102 98 - 107 mmol/L [facility] Carbon Dioxide 24 22 - 31 mmol/L [facility] Anion Gap 13 5 - 15 mmol/L [facility] Calcium 7.7(L) 8.5 - 10.5 mg/dL [facility] Est Glomerular Filtration Rate 13(L) >=60 mL/min/1. 73 m?? [facility] Comment: The eGFR was calculated using the CKD-EPI equation. As with all creatinine based estimates of kidney function, eGFR values calculated with the CKD-EPI equation are not accurate in patients with acute kidney failure, extremes of body mass or the acutely ill. [email or web address] CITYnkf eGFR 15(L) >=60 mL/min/1. 73 m?? [facility] Comment: The eGFR was calculated using the CKD-EPI equation. As with all creatinine based estimates of kidney function, eGFR values calculated with the CKD-EPI equation are not accurate in patients with acute kidney failure, extremes of body mass or the acutely ill. [email or web address] Blood specimen (specimen) 08/03/2018 4:02 AM EST 08/03/2018 4:43 AM EST Narrative Resulting Agency Comment Spec In Lab Sabrina Flynn III, MD CHEMISTRY ORDERABLES [facility] [place] [address] * CT Head wo Contrast (Generic) (08/03/2018 [...] (Bezet) 495 ms MUSE SYSTEM Calculated P Higginson 51 degrees MUSE SYSTEM Calculated R Higginson 38 degrees MUSE SYSTEM Calculated T Higginson 4 degrees MUSE SYSTEM INTERPRETATION Normal sinus [...] III, MD ECG ORDERABLES Performing Organization Address City/[facility] Co de Phone Number MUSE SYSTEM * (ABNORMAL) Phosphorus (08/02/2018 4:48 AM EST) Phosphorus 5.3(H) 2.5 - 4.5 mg/dL [facility] Blood specimen (specimen) 08/02/2018 4:48 AM EST 08/02/2018 5:12 AM EST Narrative Resulting Agency Comment Spec In Lab Sabrina Flynn III, MD CHEMISTRY ORDERABLES [facility] [place] [address] * (ABNORMAL) Basic Metabolic Panel (non-fasting) (08/02/2018 4:48 AM EST) Glucose 92 65 - 199 mg/dL [facility] Comment:Diabetes: >=200 mg/d L plus symptoms Blood Urea Nitrogen 56(H) 10 - 20 mg/dL [facility] Creatinine 6.95(H) 0.80 - 1.50 mg/dL [facility] Comment:delta result recheck ed-KLA Sodium 142 135 - 145 mmol/L [facility] Potassium 4.8 3.5 - 5.0 mmol/L [facility] Comment: Please note: ??Patients with WBC >100,000 may have falsely elevated Potassium levels. ??For accurate Potassium quantification in these patients send serum separator tube (gold top) for subsequent determinations. ??Contact the Clinical Chemistry Laboratory if there are any questions. Chloride 106 98 - 107 mmol/L [facility] Carbon Dioxide 22 22 - 31 mmol/L [facility] Anion Gap 14 5 - 15 mmol/L [facility] Calcium 7.2(L) 8.5 - 10.5 mg/dL [facility] Est Glomerular Filtration Rate 8(L) >=60 mL/min/1. 73 m?? [facility] Comment: The eGFR was calculated using the CKD-EPI equation. As with all creatinine based estimates of kidney function, eGFR values calculated with the CKD-EPI equation are not accurate in patients with acute kidney failure, extremes of body mass or the acutely ill. [email or web address] eGFR 9(L) >=60 mL/min/1. 73 m?? [facility] Comment: The eGFR was calculated using the CKD-EPI equation. As with all creatinine based estimates of kidney function, eGFR values calculated with the CKD-EPI equation are not accurate in patients with acute kidney failure, extremes of body mass or the acutely ill. [email or web address] Blood specimen (specimen) 08/02/2018 4:48 AM EST 08/02/2018 5:12 AM EST Narrative Resulting Agency Comment Spec In Lab Sabrina Flynn III, MD CHEMISTRY ORDERABLES Performing Organization Address City/[facility]/ZIP Co de Phone Number [facility] [place] [address] * (ABNORMAL) Phosphorus (08/01/2018 4:35 AM EST) Phosphorus 6.7(H) 2.5 - 4.5 mg/dL [facility] Blood specimen (specimen) 08/01/2018 4:35 AM EST 08/01/2018 4:44 AM EST Narrative Resulting Agency Comment Spec In Lab Sabrina Flynn III, MD CHEMISTRY ORDERABLES Performing Organization Address [facility] Co de Phone Number [facility] [place] [address] * (ABNORMAL) Basic Metabolic Panel (non-fasting) (08/01/2018 4:35 AM EST) Glucose 99 65 - 199 mg/dL [facility] Comment:Diabetes: >=200 mg/d L plus symptoms Blood Urea Nitrogen 80(H) 10 - 20 mg/dL [facility] Creatinine 9.31(H) 0.80 - 1.50 mg/dL [facility] Sodium 142 135 - 145 mmol/L [facility] Potassium 4.4 3.5 - 5.0 mmol/L [facility] Comment: Please note: ??Patients with WBC >100,000 may have falsely elevated Potassium levels. ??For accurate Potassium quantification in these patients send serum separator tube (gold top) for subsequent determinations. ??Contact the Clinical Chemistry Laboratory if there are any questions. Chloride 106 98 - 107 mmol/L [facility] Carbon Dioxide 19(L) 22 - 31 mmol/L [facility] Anion Gap 17(H) 5 - 15 mmol/L [facility] Calcium 7.3(L) 8.5 - 10.5 mg/dL [facility] Est Glomerular Filtration Rate 6(L) >=60 mL/min/1. 73 m?? [facility] Comment: The eGFR was calculated using the CKD-EPI equation. As with all creatinine based estimates of kidney function, eGFR values calculated with the CKD-EPI equation are not accurate in patients with acute kidney failure, extremes of body mass or the acutely ill. [email or web address] CITYnkf eGFR 7(L) >=60 mL/min/1. 73 m?? [facility] Comment: The eGFR was calculated using the CKD-EPI equation. As with all creatinine based estimates of kidney function, eGFR values calculated with the CKD-EPI equation are not accurate in patients with acute kidney failure, extremes of body mass or the acutely ill. [email or web address] CITYnkf Blood specimen (specimen) 08/01/2018 4:35 AM EST 08/01/2018 4:44 AM EST Narrative Resulting Agency Comment Spec In Lab Sabrina Flynn III, MD CHEMISTRY ORDERABLES [facility] [place] [address] * (ABNORMAL) Basic Metabolic Panel (non-fasting) (07/31/2018 8:13 AM EST) Glucose 111 65 - 199 mg/dL [facility] Comment:Diabetes: >=200 mg/d L plus symptoms Blood Urea Nitrogen 76(H) 10 - 20 mg/dL [facility] Creatinine 8.91(H) 0.80 - 1.50 mg/dL [facility] Comment:result rechecked-williams Sodium 147(H) 135 - 145 mmol/L [facility] Potassium 4.9 3.5 - 5.0 mmol/L [facility] Comment: Please note: ??Patients with WBC >100,000 may have falsely elevated Potassium levels. ??For accurate Potassium quantification in these patients send serum separator tube (gold top) for subsequent determinations. ??Contact the Clinical Chemistry Laboratory if there are any questions. Chloride 107 98 - 107 mmol/L [facility] Carbon Dioxide 17(L) 22 - 31 mmol/L [facility] Anion Gap 23(H) 5 - 15 mmol/L [facility] Calcium 8.0(L) 8.5 - 10.5 mg/dL [facility] Est Glomerular Filtration Rate 6(L) >=60 mL/min/1. 73 m?? [facility] Comment: The eGFR was calculated using the CKD-EPI equation. As with all creatinine based estimates of kidney function, eGFR values calculated with the CKD-EPI equation are not accurate in patients with acute kidney failure, extremes of body mass or the acutely ill. [email or web address] CITYnkf eGFR 7(L) >=60 mL/min/1. 73 m?? [facility] Comment: The eGFR was calculated using the CKD-EPI equation. As with all creatinine based estimates of kidney function, eGFR values calculated with the CKD-EPI equation are not accurate in patients with acute kidney failure, extremes of body mass or the acutely ill. [email or web address] Blood specimen (specimen) 07/31/2018 8:13 AM EST 07/31/2018 8:17 AM EST Narrative Resulting Agency Comment Spec In Lab Sabrina Flynn III, MD CHEMISTRY ORDERABLES Performing Organization Address City/State/[facility] Co de Phone Number [facility] [place] [address] * IR Dialysis Access - Tunneled Line [...] a permanent image was stored. Catheter placed: [employer] REF HFS [id number] Catheter cuff-to-tip length (cm): [...] the number below. ? Electronically signed by: CHETAN Bob [facility] ([phone]), at 07/30/2018 1:28 PM Narrative 07/30/2018 1:28 PM EST PROCEDURE: Tunneled [...] EST) Hepatitis B Surface Antigen Negative Negative [facility] Blood specimen (specimen) 07/30/2018 8:17 AM EST 07/30/2018 8:25 AM EST Narrative Resulting Agency Comment Spec In Lab Gaby Mesa MD CHEMISTRY ORDERABLES Performing Organization Address City/State/[facility] Co de Phone Number [facility] [address] [phone] * XR Chest PA & Lateral (Generic) (07/29/2018 10:35 PM EST) Anatomical Region Laterality Modality Chest N/A Digital Radiogra phy Impressions 07/29/2018 10:41 PM EST Mild pulmonary edema with small bilateral pleural effusions. Thank you for letting us participate in the care of this patient. For questions regarding this report, please contact the number below. ? Electronically signed by: Savanna Starr [facility] ([phone]), at 07/29/2018 10:41 PM Narrative 07/29/2018 10:41 PM EST EXAMINATION: XR [...] PM EST) Gold Hold Sample in lab. [facility] Blood specimen (specimen) Venous Draw / Unknown 07/29/2018 9:36 PM EST 07/29/2018 9:38 PM EST Oliver Lynn MD CHEMISTRY ORDERABLES [facility] [place] [address] * Blue Tube HOLD (07/29/2018 9:36 PM EST) Blue Hold Sample in lab. [facility] Blood specimen (specimen) Venous Draw / Unknown 07/29/2018 9:36 PM EST 07/29/2018 9:38 PM EST Oliver Lynn MD HEMATOLOGY ORDERABLE S [facility] [place] [address] * Differential, Automated (07/29/2018 9:36 PM EST) Pathologist [facility] Neutrophil % 50.7 % [facility] Neutrophil Absolute 1.92 1.70 - 6.10 x10(3)/[facility] Lymph % 29.4 % [facility] Lymphocytes Abs 1.1 0.9 - 3.2 x10(3)/[facility] Monocyte % 13.8 % [facility] Monocyte Abs 0.5 0.3 - 0.9 x10(3)/[facility] Eos % 4.2 % [facility] Eosinophils Abs 0.2 0.0 - 0.4 x10(3)/[facility] Basophil % 0.8 % [facility] Baso Absolute 0.0 0.0 - 0.1 x10(3)/[facility] Immature Gran % 1.10 % [facility] Comment: Immature granulocytes(IG's)percentage and absolute count will include metamyelocytes, myelocytes, and promyelocytes. Blood smears from CBCs yielding IG's will be scanned manually for concordance. If this scan disagrees with the automated IG or if promyelocytes are noted, a manual differential will be performed. Immature Gran Absolute 0.04 0.00 - 0.04 x10(3)/[facility] Blood specimen (specimen) 07/29/2018 9:36 PM EST 07/29/2018 9:37 PM EST Narrative Resulting Agency Comment Spec In Lab Oliver Lynn MD HEMATOLOGY ORDERABLE S Performing Organization Address [place] [facility]/ZIP Co de Phone Number [facility] [place] [address] * (ABNORMAL) Hemogram (07/29/2018 9:36 PM EST) [facility] White Blood Cell 3.8(L) 4.0 - 9.5 x10(3)/ L [facility] Red Blood Cell 3.26(L) 4.58 - 5.54 x10(6)/mc L [facility] Hemoglobin 9.2(L) 13.7 - 16.5 gm/dL [facility] Hematocrit 28.9(L) 40.5 - 48.5 % [facility] Mean Cell Volume 88.7 82.9 - 93.1 fL [facility] Mean Cell Hemoglobin 28.2 27.5 - 32.1 pg [facility] Mean Cell Hemoglobin Concentration 31.8(L) 32.0 - 35.7 gm/dL [facility] Platelet 105(L) 145 - 357 x10(3)/[facility] LABORATORY RDW Standard Deviation 54.6(H) 36.0 - 45.0 [facility] LABORATORY RDW coefficient of variation 17.2(H) 11.4 - 13.8 % [facility] Mean Platelet Volume 9.9 7.6 - 12.9 [facility] LABORATORY NRBC% auto 0.0 % [facility] NRBC Absolute 0.000 0.000 - 0.000 x10(3)/[facility] LABORATORY Blood specimen (specimen) 07/29/2018 9:36 PM EST 07/29/2018 9:37 PM EST Narrative Resulting Agency Comment Spec In Lab Oliver Lynn MD HEMATOLOGY ORDERABLE S [facility] [place] [address] * (ABNORMAL) Phosphorus (07/29/2018 9:36 PM EST) Phosphorus 7.5(H) 2.5 - 4.5 mg/dL [facility] Blood specimen (specimen) 07/29/2018 9:36 PM EST 07/29/2018 9:37 PM EST Narrative Resulting Agency Comment Spec In Lab Oliver Lynn MD CHEMISTRY ORDERABLES Performing Organization Address City/[facility]/ZIP Co de Phone Number [facility] [place] [address] * Magnesium (07/29/2018 9:36 PM EST) Magnesium 1.02 0.69 - 1.07 mmol/L [facility] Blood specimen (specimen) 07/29/2018 9:36 PM EST 07/29/2018 9:37 PM EST Narrative Resulting Agency Comment Spec In Lab Oliver Lynn MD CHEMISTRY ORDERABLES Performing Organization Address [facility] de Phone Number [facility] [place] [address] * (ABNORMAL) Basic Metabolic Panel (non-fasting) (07/29/2018 9:36 PM EST) Pathologist [facility] Glucose 123 65 - 199 mg/dL [facility] Comment:Diabetes: >=200 mg/d L plus symptoms Blood Urea Nitrogen 94(H) 10 - 20 mg/dL [facility] Creatinine 9.93(H) 0.80 - 1.50 mg/dL [facility] Sodium 150(H) 135 - 145 mmol/L [facility] Potassium 4.9 3.5 - 5.0 mmol/L [facility] [...] mmol/L [facility] Anion Gap 20(H) 5 - 15 mmol/L [facility] Calcium 8.1(L) 8.5 - 10.5 mg/dL [facility] Est Glomerular Filtration Rate 5(L) >=60 mL/min/1. 73 m?? [facility] Comment: The eGFR was calculated using the CKD-EPI equation. As with all creatinine based estimates of kidney function, eGFR values calculated with the CKD-EPI equation are not accurate in patients with acute kidney failure, extremes of body mass or the acutely ill. http://Bare[employer]EE/[facility] CITYnkf eGFR 6(L) >=60 mL/min/1. 73 m?? [facility] Comment: The eGFR was calculated using the CKD-EPI equation. As with all creatinine based estimates of kidney function, eGFR values calculated with the CKD-EPI equation are not accurate in patients with acute kidney failure, extremes of body mass or the acutely ill. [email or web address]/[facility] [place] CITYnkf Blood specimen (specimen) 07/29/2018 9:36 PM EST 07/29/2018 9:37 PM EST Narrative Resulting Agency Comment Spec In Lab Oliver Lynn MD CHEMISTRY ORDERABLES [facility] [place] [phone] documented in this encounter Visit Diagnoses Diagnosis [...] 250 mg, Oral, NIGHTLY, First dose on [facility] 07/30/18 at 2100, Until Discontinued, Routine Given 08/03/2018 8:47 PM EST 250 mg Given 08/02/2018 8:58 PM EST 250 mg Given 08/01/2018 8:05 PM EST 250 mg levETIRAcetam (KEPPRA) tablet 500 mg 500 mg, Oral, DAILY, First dose on [facility] 07/30/18 at 0900, Until Discontinued, Routine Given 08/03/2018 8:51 AM EST 500 mg Given 08/02/2018 12:55 PM EST 500 mg Given 08/01/2018 12:57 PM EST 500 mg levETIRAcetam (KEPPRA) tablet 500 mg 500 mg, Oral, NIGHTLY, First dose (after last modification) on [facility] 08/04/18 at 2100, Until Discontinued, Routine Given 08/07/2018 8:11 PM EST 500 mg Given 08/06/2018 8:23 PM EST 500 mg Given 08/05/2018 8:29 PM EST 500 mg levETIRAcetam (KEPPRA) tablet 500 mg 500 mg, Oral, DAILY, First dose (after last modification) on [facility] 08/04/18 at 0900, Until Discontinued, Routine Given 2018 8:20 AM EST 500 mg Given 08/07/2018 8:46 AM EST 500 mg Given 08/06/2018 1:25 PM EST 500 mg levothyroxine (SYNTHROID) tablet 100 mcg 100 mcg, Oral, EVERY MORNING, First dose on [facility] 07/30/18 at 0600, Until Discontinued, Routine Given 2018 5:53 AM EST 100 mcg Given 08/07/2018 5:06 AM EST 100 mcg Given 08/06/2018 5:43 AM EST 100 mcg lidocaine (XYLOCAINE) 10 mg/mL (1 %) injection 10 mg 10 mg, Subcutaneous, ONCE, 1 dose, On [facility] 07/30/18 at 1245, For use in [...] Provider: Marcia Ramírez RN)1733 (Given - Provider: Marcai Ramírez RN) 0846 (Given - Provider: Anel [...] Provider: Anel Villar RN)2010 (Given - Provider: Lcurecia Skinner RN) 820 (Given - Provider: Anel [...] Routine documented in this encounter Care Teams Fire 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
--- OUTSIDE RECORDS SUMMARY | 2024-05-23 13:18 | XMS_ITS | Encounter Summary ---
Author Organization [facility] [place] [address] Care Team Providers Care Computer Analyst Name Role Phone AlfredoCarroll geiger Primary Care Provider [phone] Encounter Details Date Type Department Care Team (Latest Contact Info) Description 06/07/2018 10:20 AM EST Laboratory Appointment Lab [address] [place] [address] S/P kidney transplant Social History Tobacco Use [...] RBC, Urine 2 0 - 3 /HPF [facility] WBC, Urine 2 0 - 3 /HPF [facility] Bacteria, Urine Rare(A) None /HPF [facility] Squamous Epithelial Cells Raw Data, Urine 1 <=4 /HPF [facility] Renal Epithelial Cells, Urine <1(H) <=0 /HPF [facility] Hyaline Casts, Urine 15(H) 0 - 2 /LPF [facility] Urine specimen obtained by clean catch procedure (specimen) 06/07/2018 10:49 AM EST 06/07/2018 11:22 AM EST Narrative Resulting Agency Comment Spec In Lab Anup Hawkins MD URINE ORDERABLES Performing Organization Address City/[facility]/ZIP Co de Phone Number [facility] [place] [address] * (ABNORMAL) Protein/Creatinine Ratio, urine (06/07/2018 10:49 AM EST) Creatinine, Urine 69 mg/dL [facility] Protein, Urine 934(H) 0 - 12 mg/dL [facility] Comment:verified by dilution Protein / Creatinine Ratio, Urine 13.5 ratio [facility] Urine specimen (specimen) 06/07/2018 10:49 AM EST 06/07/2018 11:22 AM EST Narrative Resulting Agency Comment Spec In Lab Anup Hawkins MD URINE ORDERABLES Performing Organization Address [facility] Co de Phone Number [facility] [place] [address] * (ABNORMAL) Urinalysis with reflex Culture (06/07/2018 10:49 AM EST) Glucose, Urine Dipstick Negative Negative mg/dL [facility] Protein, Urine Dipstick >=500(A) Negative mg/dL [facility] Bilirubin, Urine Dipstick Negative Negative mg/dL [facility] Comment: Clinical correlation required for positive Urine Bilirubin results as false positive may occur with some drugs and drug related products. If a false positive is suspected a serum total bilirubin should be considered if clinically indicated. Urobilinogen, Urine Dipstick Normal Normal mg/dL [facility] pH, Urn (dipstick) 6.0 5.0 - 8.0 [facility] Blood, Urine Dipstick Negative Negative mg/dL [facility] Ketone, Urine Dipstick Negative Negative mg/dL [facility] Nitrite, Urine Dipstick Negative Negative [facility] Leukocytes, Urine Dipstick Negative Negative [facility] LABORATORY Appearance, Urine Dipstick Hazy(A) Clear [facility] Specific [place] Urine Automated 1.015 1.002 - 1.030 [facility] Color, Urine Dipstick Yellow Yellow [facility] Reflex to Culture No [facility] Urine specimen obtained by clean catch procedure (specimen) 06/07/2018 10:49 AM EST 06/07/2018 11:22 AM EST Narrative Resulting Agency Comment Spec In Lab Anup Hawkins MD URINE ORDERABLES [facility] [place] [address] * (ABNORMAL) Differential, Automated (06/07/2018 10:42 AM EST) Neutrophil % 67.6 % [facility] Neutrophil Absolute 2.84 1.70 - 6.10 x10(3)/mc L [facility] Lymph % 19.0 % [facility] Lymphocytes Abs 0.8(L) 0.9 - 3.2 x10(3)/mc L [facility] Monocyte % 9.8 % [facility] Monocyte Abs 0.4 0.3 - 0.9 x10(3)/mc L [facility] Eos % 2.6 % [facility] Eosinophils Abs 0.1 0.0 - 0.4 x10(3)/mc L [facility] Basophil % 0.5 % [facility] Baso Absolute 0.0 0.0 - 0.1 x10(3)/mc L [facility] Immature Gran % 0.50 % [facility] Comment: Immature granulocytes(IG's)percentage and absolute count will include metamyelocytes, myelocytes, and promyelocytes. Blood smears from CBCs yielding IG's will be scanned manually for concordance. If this scan disagrees with the automated IG or if promyelocytes are noted, a manual differential will be performed. Immature Gran Absolute 0.02 0.00 - 0.04 x10(3)/mc L [facility] Blood specimen (specimen) 06/07/2018 10:42 AM EST 06/07/2018 10:50 AM EST Narrative Resulting Agency Comment Spec In Lab Anup Hawkins MD HEMATOLOGY ORDERA BLES [facility] [place] [address] * (ABNORMAL) Hemogram (06/07/2018 10:42 AM EST) White Blood Cell 4.2 4.0 - 9.5 x10(3)/[facility] LABORATORY Red Blood Cell 2.77(L) 4.58 - 5.54 x10(6)/[facility] LABORATORY Hemoglobin 8.6(L) 13.7 - 16.5 gm/dL [facility] Hematocrit 25.3(L) 40.5 - 48.5 % [facility] Mean Cell Volume 91.3 82.9 - 93.1 fL [facility] Mean Cell Hemoglobin 31.0 27.5 - 32.1 pg [facility] Mean Cell Hemoglobin Concentration 34.0 32.0 - 35.7 gm/dL [facility] Platelet 110(L) 145 - 357 x10(3)/[facility] LABORATORY RDW Standard Deviation 49.1(H) 36.0 - 45.0 [facility] LABORATORY RDW coefficient of variation 14.6(H) 11.4 - 13.8 % [facility] Mean Platelet Volume 8.6 7.6 - 12.9 [facility]ORATORY NRBC% auto 0.0 % [facility] NRBC Absolute 0.000 0.000 - 0.000 x10(3)/[facility] LABORATORY Blood specimen (specimen) 06/07/2018 10:42 AM EST 06/07/2018 10:50 AM EST Narrative Resulting Agency Comment Spec In Lab Anup Hawkins MD HEMATOLOGY ORDERA BLES Performing Organization Address [facility] Co de Phone Number [facility] [place] [address] * Tacrolimus level (06/07/2018 10:42 AM EST) Tacrolimus <2.0 ng/mL [facility] Comment: Trough therapeutic: ??5-15 ng/mL Performed by ultra-performance liquid chromatography tandem mass spectrometry (UPLCMS/MS). This test was developed and its performance characteristics determined by [facility]. It has not been cleared [...] ORDERAB LES Performing Organization Address [facility] Co de Phone Number [facility] [place] [address] * (ABNORMAL) Basic Metabolic Panel (non-fasting) (06/07/2018 10:42 AM EST) Glucose 100 65 - 199 mg/dL [facility] Comment:Diabetes: >=200 mg/d L plus symptoms Blood Urea Nitrogen 50(H) 10 - 20 mg/dL [facility] Creatinine 3.64(H) 0.80 - 1.50 mg/dL [facility] [...] questions. Chloride 110(H) 98 - 107 mmol/L [facility] Carbon Dioxide 17(L) 22 - 31 mmol/L [facility] Anion Gap 14 5 - 15 mmol/L [facility] Calcium 7.9(L) 8.5 - 10.5 mg/dL [facility] Est Glomerular Filtration Rate 18(L) >=60 mL/min/1. 73 m?? [facility] Comment: The eGFR was calculated using the CKD-EPI equation. As with all creatinine based estimates of kidney function, eGFR values calculated with the CKD-EPI equation are not accurate in patients with acute kidney failure, extremes of body mass or the acutely ill. http://[employer]/[facility] COALGATEnkf eGFR 20(L) >=60 mL/min/1. 73 m?? [facility] Comment: The eGFR was calculated using the CKD-EPI equation. As with all creatinine based estimates of kidney function, eGFR values calculated with the CKD-EPI equation are not accurate in patients with acute kidney failure, extremes of body mass or the acutely ill. http://[employer]/DHMCnkf Blood specimen (specimen) 06/07/2018 10:42 AM EST 06/07/2018 10:50 AM EST Narrative Resulting Agency Comment Spec In Lab Anup Hawkins MD CHEMISTRY ORDERAB LES Performing Organization Address City/State/[facility] Co de Phone Number [facility] [place] [address] * Cholesterol, total (06/07/2018 10:42 AM EST) Cholesterol, Total 202 mg/dL [facility] Comment: Lower Risk: <200 mg/dL Average Risk: 200-239 mg/dL Higher Risk: >xt=082 mg/dL Lipid Interpretation See Note [facility] Comment: Lipid management should be guided by a patient? s ASCVD risk, goals and preferences. ACC/AHA Guidelines recommend high intensity statin if clinical ASCVD or LDL greater than or equal to 190 mg/dL. http://[employer]/GWZ-TTD-Heedkdlfh Adults aged 40-75 with LDL 70-189 mg/dL should have their 10 year ASCVD risk estimated with the ACC/AHA ASCVD risk estimator binding http://tools.acc.org/OMZJZ-Yvyl-Npubwvlhi/ Statin should be discussed if risk greater [...] MD CHEMISTRY ORDERAB LES [facility] [place] [address] * (ABNORMAL) Comprehensive metabolic panel (non-fasting) (06/07/2018 10:42 AM EST) Glucose 100 65 - 199 mg/dL [facility] Comment:Diabetes: >=200 mg/d L plus symptoms Blood Urea Nitrogen 50(H) 10 - 20 mg/dL [facility] Creatinine 3.64(H) 0.80 - 1.50 mg/dL [facility] [...] questions. Chloride 110(H) 98 - 107 mmol/L [facility] Carbon Dioxide 17(L) 22 - 31 mmol/L [facility] Anion Gap 14 5 - 15 mmol/L [facility] Calcium 7.9(L) 8.5 - 10.5 mg/dL [facility] Protein, Total 5.5(L) 6.1 - 8.0 gm/dL [facility] Albumin 3.3 3.2 - 5.2 gm/dL [facility] Aspartate Aminotransferase 19 0 - 39 unit/L [facility] Alanine Aminotransferase 13 0 - 55 unit/L [facility] Alkaline Phosphatase 100 40 - 120 unit/L [facility] Bilirubin, Total 0.4 0.2 - 1.3 mg/dL [facility] Est Glomerular Filtration Rate 18(L) >=60 mL/min/1. 73 m?? [facility] Comment: The eGFR was calculated using the CKD-EPI equation. As with all creatinine based estimates of kidney function, eGFR values calculated with the CKD-EPI equation are not accurate in patients with acute kidney failure, extremes of body mass or the acutely ill. http://[employer]/[facility]GATEnkf eGFR 20(L) >=60 mL/min/1. 73 m?? [facility] Comment: The eGFR was calculated using the CKD-EPI equation. As with all creatinine based estimates of kidney function, eGFR values calculated with the CKD-EPI equation are not accurate in patients with acute kidney failure, extremes of body mass or the acutely ill. http://[employer]/[facility]GATEnkf Blood specimen (specimen) 06/07/2018 10:42 AM EST 06/07/2018 10:50 AM EST Narrative Resulting Agency Comment Spec In Lab Anup Hawkins MD CHEMISTRY ORDERAB LES [facility] [place] [address] * Magnesium (06/07/2018 10:42 AM EST) Magnesium 0.83 0.69 - 1.07 mmol/L [facility] Blood specimen (specimen) 06/07/2018 10:42 AM EST 06/07/2018 10:50 AM EST Narrative Resulting Agency Comment Spec In Lab Anup Hawkins MD CHEMISTRY ORDERAB LES Performing Organization Address [facility] Co de Phone Number [facility] [place] [address] * (ABNORMAL) Phosphorus (06/07/2018 10:42 AM EST) Phosphorus 5.3(H) 2.5 - 4.5 mg/dL [facility] Blood specimen (specimen) 06/07/2018 10:42 AM EST 06/07/2018 10:50 AM EST Narrative Resulting Agency Comment Spec In Lab Anup Hawkins MD CHEMISTRY ORDERAB LES Performing Organization Address [facility] Co de Phone Number [facility] [place] [address] * Uric acid (06/07/2018 10:42 AM EST) Uric Acid 5.1 3.5 - 8.5 mg/dL [facility] Blood specimen (specimen) 06/07/2018 10:42 AM EST 06/07/2018 10:50 AM EST Narrative Resulting Agency Comment Spec In Lab Anup Hawkins MD CHEMISTRY ORDERAB LES Performing Organization Address [facility] Co de Phone Number [facility] [place] [address] documented in this encounter Visit Diagnoses Diagnosis S/P kidney transplant Kidney replaced by transplant documented in this encounter Care Teams Computer Analyst Relationship Specialty Start Date End Date Carroll Fuentes DO [address] [place] [address] PCP - General 09/23/11 10/20/22 documented as of this encounter
--- OUTSIDE RECORDS SUMMARY | 2024-05-23 13:18 | XMS_ITS | Encounter Summary ---
Author Organization [facility] [place] [address] Care Team Providers Care Vacuum Drier Operator Name Role Phone AlfredoCarroll allison Primary Care Provider Encounter Details Date Type Department Care Team (Late st Contact Info) Description 06/27/2018 Telephone [place] [id number] Aby Zamarripa RN Social History Tobacco Use [...] 06/27/2018 3:16 PM EST [facility] VM left. * Telephone Encounter - Aby Dubon RN - 06/27/2018 3:16 PM EST ----- Message from Kristyn Fletcher sent at 06/27/2018 3:07 PM EST ----- Regarding: please call Fabiana from [facility] was told by Adama's brother that Dr. Hawkins recommended along time care long-term for Adama. This is not the same assessment they have made. Fabiana believes he could go to a level 3 home. Wondering if we see or know something they don't and would like to discuss this before he is discharged. Fabiana's # [phone] documented in this encounter Plan of Treatment Not on file documented as of this encounter Visit Diagnoses Not on filedocumented in this encounter Care Teams Vacuum Drier Operator Relationship Specialty Start Date End Date Carroll Fuentes DO [address] [place] [address] PCP - General 09/23/11 10/20/22 documented as of this encounter
--- OUTSIDE RECORDS SUMMARY | 2024-05-23 13:18 | XMS_ITS | Encounter Summary ---
[place] [address] Care Team Providers Care Bowling Alley Refinisher Name Role Phone Carroll Fuentes DO Primary Care Provider Encounter Details Date Type Department Care Team (Late st Contact Info) Description 07/28/2018 Orders Only [place] [address] Khushbu Fitzgerald RN Social History Tobacco Use [...] on filedocumented in this encounter Care Teams Bowling Alley Refinisher Relationship Specialty Start Date End Date Carroll Fuentes DO [address] [place] [address] PCP - General 09/23/11 10/20/22 documented as of this encounter
--- OUTSIDE RECORDS SUMMARY | 2024-05-23 13:18 | XMS_ITS | Encounter Summary ---
Author Organization [facility] Address [facility] [place] [address] Care Team Providers Care Check Totaler Name Role Phone AlfredoCarroll allison Primary Care Provider [phone] Encounter Details Date Type Department Care Team (Late st Contact Info) Description 06/05/2018 [place] [address] Kori Zheng MD [facility] [place] [address] Social History Tobacco Use Types Packs/Day Years [...] EST Dr. Sandy calling for consultation from [facility] 57 yo M discahrged from [...] on filedocumented in this encounter Care Teams Check Totaler Relationship Specialty Start Date End Date Carroll Fuentes DO [address] [place] [address] PCP - General 09/23/11 10/20/22 documented as of this encounter
--- OUTSIDE RECORDS SUMMARY | 2024-05-23 13:18 | XMS_ITS | Encounter Summary ---
Author Organization [facility] Address [facility] [place] [address] Care Team Providers Care Web Retailer Name Role Phone Carroll Fuentes DO Primary Care Provider [phone] Reason for Visit * Reason Onset Date Comments Medication Refill 06/28/2018 Encounter Details Date Type Department Care Team (Late st Contact Info) Description 06/28/2018 Refill [place] [address] Anup Hawkins MD [facility] [place] [address] H/O kidney transplant Social History Tobacco Use [...] transplant documented in this encounter Care Teams Web Retailer Relationship Specialty Start Date End Date Carroll Fuentes DO [address] [place] [address] PCP - General 09/23/11 10/20/22 documented as of this encounter
--- OUTSIDE RECORDS SUMMARY | 2024-05-23 13:18 | XMS_ITS | Encounter Summary ---
Author Organization [facility] Address [facility] [place] [address] Care Team Providers Care Learning Center Instructor Name Role Phone AlfredoCarroll allison Primary Care Provider [phone] Reason for Visit * Reason Comments Follow-up Encounter Details Date Type Department Care Team (Late st Contact Info) Description 06/29/2018 11:00 AM EST Office [place] [address] Lucrecia Mclean, LOAN COUNSELOR [facility] [address] Hospital discharge follow-up Social History Tobacco Use [...] examination documented in this encounter Care Teams Learning Center Instructor Relationship Specialty Start Date End Date Carroll Fuentes DO [address] [place] [address] PCP - General 09/23/11 10/20/22 documented as of this encounter
--- OUTSIDE RECORDS SUMMARY | 2024-05-23 13:18 | XMS_ITS | Encounter Summary ---
Author Organization [facility] Address [facility] [place] [address] Care Team Providers Care Machine Shop Lead Man Name Role Phone Carroll Fuentes DO Primary Care Provider [phone] Encounter Details Date Type Department Care Team (Late st Contact Info) Description 08/01/2018 Telephone Dermatology at [facility] [address] [place] [address] Chanel Smith MD [facility] DR KAD[place] [address] Social History Tobacco Use Types Packs/Day Years [...] that Adama has been [place] [facility] and is currently in [facility]. He did not want to cancel the scheduled appointment or request that we see Adama as an impatient. Hejust wanted to make us aware that he has been admitted. documented in this encounter Plan of Treatment Not on file documented as of this encounter Visit Diagnoses Not on filedocumented in this encounter Care Teams Machine Shop Lead Man Relationship Specialty Start Date End Date Carroll Fuentes DO [address] [place] [address] PCP - General 09/23/11 10/20/22 documented as of this encounter
--- OUTSIDE RECORDS SUMMARY | 2024-05-23 13:18 | XMS_ITS | Encounter Summary ---
Author Organization [facility] Address [facility] [place] [address] Care Team Providers Care Numerical Tool Programmer Name Role Phone AlfredoCarroll allison Primary Care Provider [phone] Reason for Visit * Reason Comments Kidney Transplant Follow-up Chronic Kidney Disease Immunotherapy Encounter Details Date Type Department Care Team (Late st Contact Info) Description 06/07/2018 11:20 AM EST Office Visit [place] [address] Anup Hawkins MD [facility] [place] [address] Anemia of chronic renal failure, unspecified CKD [...] with [facility] meds. [facility] No additional OTC meds, nutritional or herbal supplements. Reviewed education tab. Reviewed immunizations; UTD C/o fell on 06/03, possible seizure. Deferred elevated BP to staff climate scientist Per Dr. Anup Hawkins verbal readback orders Christy Ambrose received subQ injection of procrit 20,[address] Hawkins Christy Ambrose should return in one week for repeated labs and then return to the clinic for another injection if hemoglobin remains below 10. Christy Delunaon stated understanding of the upcoming labs [...] was sutured. He is back at the [facility], and reports LE edema and weight gain. 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 Patient remains on [...] for diabetics, every 5 for non diabetics Jamul kidney ultrasound looking for renal cell CA, [...] from 06/07/2018 in Solid Organ Transplant at [place] Weight 90.6 kg (199 lb 12.8 oz) [...] Latest Ref Range: Clear Hazy (A) Spec [place] UA Latest Ref Range: 1.002 - 1.030 [...] 30 min in direct face to face student financial services counselor. ?? documented in this encounter Plan of [...] Arm documented in this encounter Care Teams Numerical Tool Programmer Relationship Specialty Start Date End Date Carroll Fuentes DO [address] [place] [address] 1 [place] [address] PCP - General 09/23/11 10/20/22 documented as of this encounter
--- OUTSIDE RECORDS SUMMARY | 2024-05-23 13:18 | XMS_ITS | Encounter Summary ---
Author Organization [facility] [place] [address] Care Team Providers Care Time Study Statistician Name Role Phone AlfredoCarroll allison Primary Care Provider [phone] Encounter Details Date Type Department Care Team (Latest Contact Info) Description 07/19/2018 10:00 AM EST Laboratory Appointment Lab [address] [place] [address] S/P kidney transplant; H/O kidney transplant Social [...] [facility] WBC, Urine 2 0 - 3 /HPF [facility] Bacteria, Urine Occasional (A) None /HPF [facility] Squamous Epithelial Cells Raw Data, Urine 1 <=4 /HPF [facility] Renal Epithelial Cells, Urine <1(H) <=0 /HPF [facility] Hyaline Casts, Urine 16(H) 0 - 2 /LPF [facility] Granular Casts, Urine 7(H) <=0 /LPF [facility] Urine specimen obtained by clean catch procedure (specimen) 07/19/2018 9:47 AM EST 07/19/2018 9:58 AM EST Narrative Resulting Agency Comment Spec In Lab Anup Hawkins MD URINE ORDERABLES Performing Organization Address City/State/[facility] Co de Phone Number [facility] [place] [address] * (ABNORMAL) Urinalysis with reflex Culture (07/19/2018 9:47 AM EST) Glucose, Urine Dipstick 50(A) Negative mg/dL [facility] Leukocytes, Urine Dipstick Negative Negative [facility] Appearance, Urine Dipstick Clear Clear [facility] Specific [place] Urine Automated 1.023 1.002 - 1.030 [facility] Color, Urine Dipstick Yellow Yellow [facility] Reflex to Culture No [facility] Urine specimen obtained by clean catch procedure (specimen) 07/19/2018 9:47 AM EST 07/19/2018 9:58 AM EST Narrative Resulting Agency Comment Spec In Lab Anup Hawkins MD URINE ORDERABLES Performing Organization Address [facility] de Phone Number [facility] [place] [address] * (ABNORMAL) Protein/Creatinine Ratio, urine (07/19/2018 9:47 AM EST) Pathologist [facility] Creatinine, Urine 105 mg/dL [facility] Protein, Urine 1,716(H) 0 - 12 mg/dL [facility] Comment:verified by dilution Protein / Creatinine Ratio, Urine 16.3 ratio [facility] Urine specimen (specimen) 07/19/2018 9:47 AM EST 07/19/2018 9:59 AM EST Narrative Resulting Agency Comment Spec In Lab Anup Hawkins MD URINE ORDERABLES Performing Organization Address [facility] Number [facility] [place] [address] * Scan, Peripheral Blood (07/19/2018 9:41 AM EST) Plat estimate Normal [facility] RBC Morphology Abnormal [facility] Microcyte 1-5 /HPF [facility] Ovalocytes 1-5 /HPF [facility] [place] Cells 1-5 /HPF [facility] Blood specimen (specimen) 07/19/2018 9:41 AM EST 07/19/2018 9:54 AM EST Narrative Resulting Agency Comment Spec In Lab Anup Hawkins MD HEMATOLOGY ORDERA BLES Performing Organization Address [facility]/ZIP Co de Phone Number [facility] [place] [address] * Differential, Automated (07/19/2018 9:41 AM EST) Pathologist [facility] Neutrophil % 60.4 % [facility] Neutrophil Absolute 2.56 1.70 - 6.10 x10(3)/[facility] Lymph % 24.3 % [facility] Lymphocytes Abs 1.0 0.9 - 3.2 x10(3)/[facility] Monocyte % 10.8 % [facility] Monocyte Abs 0.5 0.3 - 0.9 x10(3)/[facility] Eos % 3.5 % [facility] Eosinophils Abs 0.2 0.0 - 0.4 x10(3)/[facility] Basophil % 0.5 % [facility] Baso Absolute 0.0 0.0 - 0.1 x10(3)/[facility]ory [...] Immature Gran Absolute 0.02 0.00 - 0.04 x10(3)/[facility] Blood specimen (specimen) 07/19/2018 9:41 AM EST 07/19/2018 9:54 AM EST Narrative Resulting Agency Comment Spec In Lab Anup Hawkins MD HEMATOLOGY ORDERA BLES Performing Organization Address City/[facility]/ZIP Co de Phone Number [facility] [place] [address] * (ABNORMAL) Hemogram (07/19/2018 9:41 AM EST) [facility] White Blood Cell 4.2 4.0 - 9.5 x10(3)/[facility] Red Blood Cell 3.10(L) 4.58 - 5.54 x10(6)/[facility] Hemoglobin 8.8(L) 13.7 - 16.5 gm/dL [facility] Hematocrit 27.3(L) 40.5 - 48.5 % [facility] Mean Cell Volume 88.1 82.9 - 93.1 fL [facility] Mean Cell Hemoglobin 28.4 27.5 - 32.1 pg [facility] Mean Cell Hemoglobin Concentration 32.2 32.0 - 35.7 gm/dL [facility] Platelet 145 145 - 357 x10(3)/[facility] RDW Standard Deviation 48.8(H) 36.0 - 45.0 fL [facility] RDW coefficient of variation 15.5(H) 11.4 - 13.8 % [facility] Mean Platelet Volume 8.9 7.6 - 12.9 [facility] NRBC% auto 0.0 % [facility] NRBC Absolute 0.000 0.000 - 0.000 x10(3)/[facility] Blood specimen (specimen) 07/19/2018 9:41 AM EST 07/19/2018 9:54 AM EST Narrative Resulting Agency Comment Spec In Lab Anup Hawkins MD HEMATOLOGY ORDERA BLES [facility] [place] [address] * (ABNORMAL) Reticulocyte Count (07/19/2018 9:41 AM EST) Reticulocyte % 1.2 0.7 - 2.6 % [facility] Retic Abs # 0.040 0.030 - 0.120 x10(6)/[facility] Immature Retic% 9.0 0.0 - 15.6 % [facility] Reticulated Hgb 28.4(L) 31.3 - 40.2 pg [facility] Blood specimen (specimen) 07/19/2018 9:41 AM EST 07/19/2018 9:54 AM EST Narrative Resulting Agency Comment Spec In Lab Anup Hawkins MD HEMATOLOGY ORDERA BLES Performing Organization Address [facility] de Phone Number [facility] [place] [address] * Tacrolimus level (07/19/2018 9:41 AM EST) Tacrolimus 3.2 ng/mL [facility] Comment: Trough therapeutic: ??5-15 ng/mL Performed by ultra-performance liquid chromatography tandem mass spectrometry (UPLCMS/MS). This test was developed and its performance characteristics determined by [facility]. It has not been cleared or [...] MD CHEMISTRY ORDERAB LES Performing Organization Address [facility] de Phone Number [facility] [place] [address] * Ferritin (07/19/2018 9:41 AM EST) Ferritin 76 30 - 400 ng/mL [facility] Comment: Pediatric reference ranges not verified at [facility], interpret with caution. Reference ranges for females greater than 50 years of age approach values for men, i.e., 30-400 ng/mL. Blood specimen (specimen) 07/19/2018 9:41 AM EST 07/19/2018 9:54 AM EST Narrative Resulting Agency Comment Spec In Lab Anup Hawkins MD CHEMISTRY ORDERAB LES Performing Organization Address [facility]/ZIP Co de Phone Number [facility] [place] [address] * Folate, serum (07/19/2018 9:41 AM EST) Folate 10.9 4.8 - 24.2 ng/mL [facility] Blood specimen (specimen) 07/19/2018 9:41 AM EST 07/19/2018 9:54 AM EST Narrative Resulting Agency Comment Spec In Lab Anup Hawkins MD CHEMISTRY ORDERAB LES Performing Organization Address [facility] Co de Phone Number [facility] [place] [address] * Iron and TIBC (07/19/2018 9:41 AM EST) Pathologist [facility] Iron 70 45 - 160 mcg/dL [facility] TIBC 263 250 - 450 mcg/dL [facility] Iron Saturation 27 20 - 50 % [facility] Blood specimen (specimen) 07/19/2018 9:41 AM EST 07/19/2018 9:54 AM EST Narrative Resulting Agency Comment Spec In Lab Anup Hawkins MD CHEMISTRY ORDERAB LES Performing Organization Address [facility] Co de Phone Number [facility] [place] [address] * (ABNORMAL) Basic Metabolic Panel (non-fasting) (07/19/2018 9:41 AM EST) Glucose 105 65 - 199 mg/dL [facility] Comment:Diabetes: >=200 mg/d L plus symptoms Blood Urea Nitrogen 72(H) 10 - 20 mg/dL [facility] Creatinine 7.40(H) 0.80 - 1.50 mg/dL [facility] Sodium 148(H) 135 - 145 mmol/L [facility] Potassium 5.0 3.5 - 5.0 mmol/L [facility] Comment: Please note: ??Patients with WBC >100,000 may have falsely elevated Potassium levels. ??For accurate Potassium quantification in these patients send serum separator tube (gold top) for subsequent determinations. ??Contact the Clinical Chemistry Laboratory if there are any questions. Chloride 112(H) 98 - 107 mmol/L [facility] Carbon Dioxide 18(L) 22 - 31 mmol/L [facility] Anion Gap 18(H) 5 - 15 mmol/L [facility] Calcium 7.7(L) 8.5 - 10.5 mg/dL [facility] Est Glomerular Filtration Rate 7(L) >=60 mL/min/1. 73 m?? [facility] Comment: The eGFR was calculated using the CKD-EPI equation. As with all creatinine based estimates of kidney function, eGFR values calculated with the CKD-EPI equation are not accurate in patients with acute kidney failure, extremes of body mass or the acutely ill. http://Babble/[facility]Ankf eGFR 9(L) >=60 mL/min/1. 73 m?? [facility] Comment: The eGFR was calculated using the CKD-EPI equation. As with all creatinine based estimates of kidney function, eGFR values calculated with the CKD-EPI equation are not accurate in patients with acute kidney failure, extremes of body mass or the acutely ill. http://Babble/[facility]kf Blood specimen (specimen) 07/19/2018 9:41 AM EST 07/19/2018 9:54 AM EST Narrative Resulting Agency Comment Spec In Lab Anup Hawkins MD CHEMISTRY ORDERAB LES [facility] [place] [address] * Cholesterol, total (07/19/2018 9:41 AM EST) Cholesterol, Total 202 mg/dL [facility] Comment: Lower Risk: <200 mg/dL Average Risk: 200-239 mg/dL Higher Risk: >tm=264 mg/dL Lipid Interpretation See Note [facility] Comment: Lipid management should be guided by a patient? s ASCVD risk, goals and preferences. ACC/AHA Guidelines recommend high intensity statin if clinical ASCVD or LDL greater than or equal to 190 mg/dL. http://Notorious.com/XEP-WGK-Apyeisciz Adults aged 40-75 with LDL 70-189 mg/dL should have their 10 year ASCVD risk estimated with the ACC/AHA ASCVD risk insulation estimator http://tools.acc.org/LIKPV-Leio-Xpijefmyr/ Statin should be discussed if risk greater [...] Phone Number [facility] [place] [address] * (ABNORMAL) Comprehensive metabolic panel (non-fasting) (07/19/2018 9:41 AM EST) Glucose 105 65 - 199 mg/dL [facility] Comment:Diabetes: >=200 mg/d L plus symptoms Blood Urea Nitrogen 72(H) 10 - 20 mg/dL [facility] Creatinine 7.40(H) 0.80 - 1.50 mg/dL [facility] Sodium 148(H) 135 - 145 mmol/L [facility] Potassium 5.0 3.5 - 5.0 mmol/L [facility] Comment: Please note: ??Patients with WBC >100,000 may have falsely elevated Potassium levels. ??For accurate Potassium quantification in these patients send serum separator tube (gold top) for subsequent determinations. ??Contact the Clinical Chemistry Laboratory if there are any questions. Chloride 112(H) 98 - 107 mmol/L [facility] Carbon Dioxide 18(L) 22 - 31 mmol/L [facility] Anion Gap 18(H) 5 - 15 mmol/L [facility] Calcium 7.7(L) 8.5 - 10.5 mg/dL [facility] Protein, Total 5.9(L) 6.1 - 8.0 gm/dL [facility] Albumin 3.5 3.2 - 5.2 gm/dL [facility] Aspartate Aminotransferase 18 0 - 39 unit/L [facility] Alanine Aminotransferase 11 0 - 55 unit/L [facility] Alkaline Phosphatase 101 40 - 120 unit/L [facility] Bilirubin, Total 0.3 0.2 - 1.3 mg/dL [facility] Est Glomerular Filtration Rate 7(L) >=60 mL/min/1. 73 m?? [facility] Comment: The eGFR was calculated using the CKD-EPI equation. As with all creatinine based estimates of kidney function, eGFR values calculated with the CKD-EPI equation are not accurate in patients with acute kidney failure, extremes of body mass or the acutely ill. http://Babble/[facility]kf eGFR 9(L) >=60 mL/min/1. 73 m?? [facility] Comment: The eGFR was calculated using the CKD-EPI equation. As with all creatinine based estimates of kidney function, eGFR values calculated with the CKD-EPI equation are not accurate in patients with acute kidney failure, extremes of body mass or the acutely ill. http://Babble/[facility]kf Blood specimen (specimen) 07/19/2018 9:41 AM EST 07/19/2018 9:54 AM EST Narrative Resulting Agency Comment Spec In Lab Anup Hawkins MD CHEMISTRY ORDERAB LES [facility] [place] [address] * Magnesium (07/19/2018 9:41 AM EST) Magnesium 0.89 0.69 - 1.07 mmol/L [facility] Blood specimen (specimen) 07/19/2018 9:41 AM EST 07/19/2018 9:54 AM EST Narrative Resulting Agency Comment Spec In Lab Anup Hawkins MD CHEMISTRY ORDERAB LES Performing Organization Address [facility] Co de Phone Number [facility] [place] [address] * (ABNORMAL) Phosphorus (07/19/2018 9:41 AM EST) Phosphorus 6.7(H) 2.5 - 4.5 mg/dL [facility] Blood specimen (specimen) 07/19/2018 9:41 AM EST 07/19/2018 9:54 AM EST Narrative Resulting Agency Comment Spec In Lab Anup Hawkins MD CHEMISTRY ORDERAB LES Performing Organization Address [facility] Co de Phone Number [facility] [place] [address] * Uric acid (07/19/2018 9:41 AM EST) Uric Acid 5.5 3.5 - 8.5 mg/dL [facility] Blood specimen (specimen) 07/19/2018 9:41 AM EST 07/19/2018 9:54 AM EST Narrative Resulting Agency Comment Spec In Lab Anup Hawkins MD CHEMISTRY ORDERAB LES Performing Organization Address [facility] Co de Phone Number [facility] [place] [address] documented in this encounter Visit Diagnoses Diagnosis S/P kidney transplant Kidney replaced by transplant H/O kidney transplant Kidney replaced by transplant documented in this encounter Care Teams Time Study Statistician Relationship Specialty Start Date End Date Carroll Fuentes DO [address] [place] [address] PCP - General 09/23/11 10/20/22 documented as of this encounter
--- OUTSIDE RECORDS SUMMARY | 2024-05-23 13:18 | XMS_ITS | Encounter Summary ---
Author Organization [facility] Address [facility] [place] [address] Care Team Providers Care Fur Sorter Name Role Phone AlfredoCarroll allison Primary Care Provider [phone] Reason for Visit * Reason Comments Follow-up Encounter Details Date Type Department Care Team (Late st Contact Info) Description 07/19/2018 10:30 AM EST Office Visit [place] [address] Kurt Medina MD [facility] [place] [address] Surgical wound infection; Encounter for long-term (current) [...] monitoring documented in this encounter Care Teams Fur Sorter Relationship Specialty Start Date End Date Carroll Fuentes DO [address] [place] [address] PCP - General 09/23/11 10/20/22 documented as of this encounter
--- OUTSIDE RECORDS SUMMARY | 2024-05-23 13:18 | XMS_ITS | Encounter Summary ---
Author Organization [facility] Address [facility] [place] [address] Care Team Providers Care Director Field Services Name Role Phone AlfredoCarroll allison Primary Care Provider [phone] Reason for Referral * Diagnostic Test (Routine) - Closed Specialty Diagnoses / Procedures Referred By Shashi ko Referred To Contact Radiology Diagnoses SDH (subdural hematoma) Procedures CT Head wo Contrast (Generic) Anand Lugo PA [facility] [place] [address] [facility] [place] [address] Referral ID Status Reason Start Date Expiration Date V isits Requested Visits Authorized [id number] Closed Specialty Service Requested 07/29/2018 10/27/2018 1 1 Reason for Visit * Reason Comments Advice Only 4-6wk OV, tSAH s/p l ikely seizure and fall Encounter Details Date Type Department Care Team (Late st Contact Info) Description 06/29/2018 1:00 PM EST Office [place] [address] Anand Lugo PA [facility] [place] [address] SDH (subdural hematoma) Social History [...] for re-evaluation. Anand Lugo PA-C, [place] Physician Fiber Technologist Section of Neurosurgery [place], [address] documented in this encounter Plan of Treatment [...] ? Electronically signed by: Damián Chacko MD, [facility] ([phone]), at 08/01/2018 5:56 PM Narrative 08/01/2018 5:56 [...] below. Electronically signed by: Damián Chacko MD, [facility]([phone]), at 08/01/2018 5:56 PM Tim Torres MD IMG CT ORDERABLES documented in this encounter Visit Diagnoses Diagnosis SDH (subdural hematoma) Subdural hemorrhage SDH (subdural hematoma) Subdural hemorrhage documented in this encounter Care Teams Director Field Services Relationship Specialty Start Date End Date Carroll Fuentes DO [address] [place] [address] PCP - General 09/23/11 10/20/22 documented as of this encounter
--- OUTSIDE RECORDS SUMMARY | 2024-05-23 13:18 | XMS_ITS | Encounter Summary ---
Author Organization [facility] Address [facility] [place] [address] Care Team Providers Care Appliance Service Representative Name Role Phone AlfredoCarroll allison Primary Care Provider [phone] Encounter Details Date Type Department Care Team (Late st Contact Info) Description 07/29/2018 Telephone [place] [id number] Odalis Jacob Social History Tobacco Use Types [...] on filedocumented in this encounter Care Teams Appliance Service Representative Relationship Specialty Start Date End Date Carroll Fuentes DO [address] [facility] [address] [place] [address] PCP - General 09/23/11 10/20/22 documented as of this encounter
--- OUTSIDE RECORDS SUMMARY | 2024-05-23 13:19 | XMS_ITS | Encounter Summary ---
Author Organization [facility] Address [facility] [place] [address] Care Team Providers Care Licensed Final Expense Agents Name Role Phone AlfredoCarroll allison Primary Care Provider [phone] Reason for Referral * Consultation (Routine) - Closed Specialty Diagnoses / Procedures Referred By Contac t Referred To Contact Infectious Diseases Diagnoses Surgical wound infection Kurt Medina MD [facility] [place] [address] Kurt Medina MD [facility] [place] [address] Referral ID Status Reason Start Date Expiration Date V isits Requested Visits Authorized [id number] Closed Assume Subset of Care 05/12/2018 05/12/2019 1 1 Encounter Details Date Type Department Care Team (Late st Contact Info) Description 05/12/2018 Orders [place] [address] Kurt Medina MD [facility] [place] [address] Surgical wound infection Social History Tobacco Use [...] infection documented in this encounter Care Teams Licensed Final Expense Agents Relationship Specialty Start Date End Date Carroll Fuentes DO [address] [place] [address] PCP - General 09/23/11 10/20/22 documented as of this encounter
--- OUTSIDE RECORDS SUMMARY | 2024-05-23 13:19 | XMS_ITS | Encounter Summary ---
Author Organization [facility] Address [facility] [place] [address] Care Team Providers Care Surveyor Mine Name Role Phone AlfredoCarroll allison Primary Care Provider Reason for Visit * Reason Comments Follow Up Surgery f/u fasciotomy wound s s/p skin grafting dos 04/26 Encounter Details Date Type Department Care Team (Late st Contact Info) Description 05/17/2018 10:20 AM EST Office Visit [place] [address] Laina Disla MACHINIST [facility] [place] [address] Surgery follow-up Social History Tobacco Use Types [...] surgery documented in this encounter Care Teams Surveyor Mine Relationship Specialty Start Date End Date Carroll Fuentes DO [address] [place] [address] PCP - General 09/23/11 10/20/22 documented as of this encounter
--- OUTSIDE RECORDS SUMMARY | 2024-05-23 13:19 | XMS_ITS | Encounter Summary ---
Author Organization [facility] Address [facility] [place] [address] Care Team Providers Care Service Worker Name Role Phone AlfredoCarroll allison Primary Care Provider [phone] Reason for Visit * Reason Comments Post Hospital Discharge Kidney Transplant Follow-up Immunotherapy Chronic Kidney Disease Encounter Details Date Type Department Care Team (Latest Contact Info) Description 05/25/2018 9:40 AM EST Office Visit [place] [address] Anup Hawkins MD [facility] [place] [address] Aftercare following organ transplant; jail current use of immunosuppressive drug; H/O kidney [...] from the original note were not included. [facility] Transplant Medicine Follow Up ? Date: 05/25/2018 [...] CHF. 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 ? Interim Hx: Christy is here with his brother after he developed a severe ischemic, hypoxemic, cardiac and respiratory arrest due to acute rupture of his left arm AVF which was previously taken down. He is in his last days at [facility] in [facility]. His brother is aware that he needs to live in a chcf because he cannot live alone. His mother has left the apt she shared with Christy and she herself is in a mcfp. 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 Patient remains on [...] for diabetics, every 5 for non diabetics [place] kidney ultrasound looking for renal cell CA, [...] from 05/25/2018 in Solid Organ Transplant at [place] Weight 89.5 kg (197 lb 6.4 oz) [...] UA Latest Ref Range: Clear Clear Spec [place] UA Latest Ref Range: 1.002 - 1.030 [...] 30 min in direct face to face retirement plan counselor. documented in this encounter Plan of Treatment Scheduled Orders Name Type Priority Associated Diagnoses Orde r Schedule Cholesterol, total Lab STAT Aftercare following organ transplant intermediate card tender current use of immunosuppressive drug H/O kidney transplant Expected: 05/21/2018 (Approximate), Expires: 11/17/2018 CBC (with Diff) Lab STAT Aftercare following organ transplant jail current use of immunosuppressive drug H/O kidney transplant Expected: 05/21/2018 (Approximate), Expires: 11/17/2018 Magnesium Lab STAT Aftercare following organ transplant intermediate card tender current use of immunosuppressive drug H/O kidney transplant Expected: 05/21/2018 (Approximate), Expires: 11/17/2018 Comprehensive metabolic panel (non-fasting) Lab STAT Aftercare following organ transplant intermediate card tender current use of immunosuppressive drug H/O kidney transplant Expected: 05/21/2018 (Approximate), Expires: 11/17/2018 documented as of this encounter Results * (ABNORMAL) Protein/Creatinine Ratio, urine (05/25/2018 8:31 AM EST) Creatinine, Urine 78 mg/dL [facility] Protein, Urine 741(H) 0 - 12 mg/dL [facility] Protein / Creatinine Ratio, Urine 9.[address] [facility] Urine specimen (specimen) 05/25/2018 8:31 AM EST 05/25/2018 8:35 AM EST Narrative Resulting Agency Comment Spec In Lab Anup Hawkins MD URINE ORDERABLES [facility] [place] [address] * (ABNORMAL) Urinalysis with reflex Culture (05/25/2018 8:31 AM EST) Glucose, Urine Dipstick Negative Negative mg/dL [facility] Protein, Urine Dipstick >=500(A) Negative mg/dL [facility] Bilirubin, [...] [facility] pH, Urn (dipstick) 6.0 5.0 - 8.0 [facility] Blood, Urine Dipstick Negative Negative mg/dL [facility] Ketone, Urine Dipstick Negative Negative mg/dL [facility] Nitrite, Urine Dipstick Negative Negative [facility] Leukocytes, Urine Dipstick Negative Negative [facility] Appearance, Urine Dipstick Clear Clear [facility] Specific [place] Urine Automated 1.017 1.002 - 1.030 [facility] Color, Urine Dipstick Yellow Yellow [facility] Reflex to Culture No [facility] Urine specimen (specimen) 05/25/2018 8:31 AM EST 05/25/2018 8:34 AM EST Narrative Resulting Agency Comment Spec In Lab Anup Hawkins MD URINE ORDERABLES Performing Organization Address [facility] Co de Phone Number [facility] [place] [address] * BKV Quant Urine (05/25/2018 8:31 AM EST) BKV Urine Result Not Detected [facility] BKV Urine Interp BK Virus Urine Result Interpretation Result: BK Virus not detected Specimen type: urine Assay Range: 2.80-7.80 log copies/mL (6.28x10^2 - 6.28x10^7 copies/mL) Methods: Quantitative real-time polymerase chain reaction (PCR) of viral DNA isolated from urine was performed using [employer] (formerly, [employer]) BKV analyte-specific reagents and the [employer] 7500 FAST Real-Time PCR System. In addition, [...] Genomics and [employer] (CGAT) Laboratory at [facility]. It has not been cleared or approved by the FDA. The laboratory is regulated under CLIA as qualified to perform high-complexity testing. This test is used for clinical purposes. It should not be regarded as investigational or for research. [facility] Comment: [VERIFIED DATE]06.01.18 Verified By:Fannie Olivas (Electronic Signature) Urine specimen (specimen) 05/25/2018 8:31 AM EST 05/25/2018 9:36 AM EST Narrative Resulting Agency Comment Spec In Lab Anup Hawkins MD MOLECULAR ORDERAB LES [facility] [address] * (ABNORMAL) Phosphorus (05/25/2018 8:30 AM EST) Phosphorus 5.6(H) 2.5 - 4.5 mg/dL [facility] Blood specimen (specimen) 05/25/2018 8:30 AM EST 05/25/2018 8:34 AM EST Narrative Resulting Agency Comment Spec In Lab Anup Hawkins MD CHEMISTRY ORDERAB LES Performing Organization Address [facility]/ZIP Co de Phone Number [facility] [place] [address] * Uric acid (05/25/2018 8:30 AM EST) Uric Acid 5.6 3.5 - 8.5 mg/dL [facility] Blood specimen (specimen) 05/25/2018 8:30 AM EST 05/25/2018 8:34 AM EST Narrative Resulting Agency Comment Spec In Lab Anup Hawkins MD CHEMISTRY ORDERAB LES Performing Organization Address [facility] Co de Phone Number [facility] [place] [address] * (ABNORMAL) Reticulocyte Count (05/25/2018 8:30 AM EST) Reticulocyte % 0.8 0.7 - 2.6 % [facility] Retic Abs # 0.020(L) 0.030 - 0.120 x10(6)/mc L [facility] Immature Retic% 6.6 0.0 - 15.6 % [facility] Reticulated Hgb 34.0 31.3 - 40.[address] 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
--- OUTSIDE RECORDS SUMMARY | 2024-05-23 13:19 | XMS_ITS | Encounter Summary ---
Author Organization [facility] Address [facility] [place] [address] Care Team Providers Care Wallpaper Scraper Name Role Phone AlfredoCarroll allison Primary Care Provider Encounter Details Date Type Department Care Team (Late st Contact Info) Description 05/12/2018 Notes [place] [address] Sushila Feng, RN Social History Tobacco Use [...] 3.2 Vanco Trough: 24.4. I phoned the [facility] to speak with the pt's nurse to determine the dosing time of the Vancomycin. She assured me that the dosing time was 09:00, and that the Vancomycin Trough had beencollected @ 08:45. The nurse informed me that the Senior Technologist for the [place], Dr.Brad Holt had changed the Vancomycin dosing [...] and labs then faxed to the Center ([phone]). OPAT: Order / Recommendation for Post Discharge [...] on filedocumented in this encounter Care Teams Wallpaper Scraper Relationship Specialty Start Date End Date Carroll Fuentes DO [address] [place] [address] PCP - General 09/23/11 10/20/22 documented as of this encounter
--- OUTSIDE RECORDS SUMMARY | 2024-05-23 13:19 | XMS_ITS | Encounter Summary ---
Author Organization [facility] Address [facility] [place] [address] Care Team Providers Care Pt Skilled Name Role Phone Carroll Fuentes DO Primary Care Provider [phone] Encounter Details Date Type Department Care Team (Latest Contact Info) Description 06/05/2018 5:13 PM EST - 06/05/2018 11:59 PM [facility] Hospital Encounter Radiology Library at [facility] [place] [address] Tim Torres MD [facility] [place] [address] Discharge Disposition: Home Social History Tobacco Use [...] Torres MD IMG FILM LIBRARY ORD ERABLES [place], [place] documented in this encounter Visit Diagnoses Not on filedocumented in this encounter Care Teams Pt Skilled Relationship Specialty Start Date End Date Carroll Fuentes DO [address] [place] [address] PCP - General 09/23/11 10/20/22 documented as of this encounter
--- OUTSIDE RECORDS SUMMARY | 2024-05-23 13:19 | XMS_ITS | Encounter Summary ---
Author Organization [facility] Address [facility] [place] [address] Care Team Providers Care Multimedia Instructional Designer Name Role Phone AlfredoCarroll allison Primary Care Provider Encounter Details Date Type Department Care Team (Late st Contact Info) Description 06/03/2018 [place] [address] Anabella Norwood Social History Tobacco Use Types [...] Message Contents Dmitriy Hoffman, CATRACHITO Huang Neurosurgery Reconciliation Analyst ?? Follow up with [facility] in [address] Dmitriy Zhu documented in this encounter Plan of Treatment Not on file documented as of this encounter Visit Diagnoses Not on filedocumented in this encounter Care Teams Multimedia Instructional Designer Relationship Specialty Start Date End Date Carroll Fuentes DO [address] [place] [address] PCP - General 09/23/11 10/20/22 documented as of this encounter
--- OUTSIDE RECORDS SUMMARY | 2024-05-23 13:19 | XMS_ITS | Encounter Summary ---
Author Organization [facility] Address [facility] [place] [address] Care Team Providers Care Rat Trapper Name Role Phone Carroll Fuentes DO Primary Care Provider [phone] Encounter Details Date Type Department Care Team (Latest Contact Info) Description 06/02/2018 2:17 PM EST - 06/02/2018 4:06 PM [facility] Hospital Encounter Radiology Library at [facility] [place] [address] Tim Torres MD [facility] [place] [address] Discharge Disposition: Home Social History Tobacco Use [...] And Spine (06/02/2018 2:17 PM EST) Narrative [facility] - 06/02/2018 2:17 PM EST This exam is for storage only and is auto-finalizing. Tim Torres MD G FILM LIBRARY ORD ERABLES [place], [place] documented in this encounter Visit Diagnoses Not on filedocumented in this encounter Care Teams Rat Trapper Relationship Specialty Start Date End Date Carroll Fuentes DO [address] [place] [address] PCP - General 09/23/11 10/20/22 documented as of this encounter
--- OUTSIDE RECORDS SUMMARY | 2024-05-23 13:19 | XMS_ITS | Encounter Summary ---
Author Organization [facility] Address [facility] [place] [address] Care Team Providers Care Cutter V Groove Name Role Phone AlfredoCarroll allison Primary Care Provider [phone] Encounter Details Date Type Department Care Team (Late st Contact Info) Description 05/17/2018 Notes [place] [address] Sushila Feng, RN Social History Tobacco Use [...] recommendations for Vancomycin faxed to Tasneem Fitzgerald ([phone]). Recommendations: - decrease vanco to 1 gram [...] on filedocumented in this encounter Care Teams Cutter V Groove Relationship Specialty Start Date End Date Carroll Fuentes DO [address] [place] [address] PCP - General 09/23/11 10/20/22 documented as of this encounter
--- OUTSIDE RECORDS SUMMARY | 2024-05-23 13:19 | XMS_ITS | Encounter Summary ---
Author Organization [facility] [place] [address] Care Team Providers Care Head Porter Name Role Phone Carroll Fuentes DO Primary Care Provider [phone] Encounter Details Date Type Department Care Team (Late st Contact Info) Description 05/13/2018 Orders [place] [address] Sushila Feng, RN Social History Tobacco Use [...] on filedocumented in this encounter Care Teams Head Porter Relationship Specialty Start Date End Date Carroll Fuentes DO [address] [place] [address] PCP - General 09/23/11 10/20/22 documented as of this encounter
--- OUTSIDE RECORDS SUMMARY | 2024-05-23 13:19 | XMS_ITS | Encounter Summary ---
[place] [address] Care Team Providers Care Chemical Pumper Name Role Phone Alfredo, Carroll MIX Primary Care Provider [phone] Encounter Details Date Type Department Care Team (Latest Contact Info) Description 05/25/2018 8:15 AM EST Laboratory Appointment Lab [address] [place] [address] S/P kidney transplant; Renal cell carcinoma, unspecified laterality; Aftercare following organ transplant; FPC current use of immunosuppressive drug; H/O [...] 30 AM EST Aftercare following organ transplant superintendent container terminal current use of immunosuppressive drug H/O kidney transplant CBC (WITH DIFF) STAT 05/25/2018 8:30 AM EST S/P kidney transplant URIC ACID STAT 05/25/2018 8:30 AM EST Aftercare following organ transplant FPC current use of immunosuppressive drug H/O kidney transplant PHOSPHORUS STAT 05/25/2018 8:30 AM EST Aftercare following organ transplant FPC current use of immunosuppressive drug H/O kidney transplant MAGNESIUM STAT 05/25/2018 8:30 AM EST S/P kidney transplant CHOLESTEROL, TOTAL STAT 05/25/2018 8: 30 AM EST S/P kidney transplant COMPREHENSIVE METABOLIC PANEL STAT 05/25/2018 8:30 AM EST S/P kidney transplant documented in this encounter Results * Urinalysis Microscopic Exam (05/25/2018 8:31 AM EST) RBC, Urine 2 0 - 3 /HPF [facility] WBC, Urine 1 0 - 3 /HPF [facility] Hyaline Casts, Urine 1 0 - 2 /LPF [facility] Urine specimen (specimen) 05/25/2018 8:31 AM EST 05/25/2018 8:34 AM EST Narrative Resulting Agency Comment Spec In Lab Anup Hawkins MD URINE ORDERABLES Performing Organization Address [facility] Co de Phone Number [facility] [place] [address] * BKV Quant Urine (05/25/2018 8:31 AM EST) BKV Urine Result Not Detected [facility] BKV Urine Interp BK Virus Urine Result Interpretation Result: BK Virus not detected Specimen type: urine Assay Range: 2.80-7.80 log copies/mL (6.28x10^2 - 6.28x10^7 copies/mL) Methods: Quantitative real-time polymerase chain reaction (PCR) of viral DNA isolated from urine was performed using [employer] (formerly, [employer]) BKV analyte-specific reagents and the [employer] AppFog 7500 FAST Real-Time PCR System. In addition, [...] [facility] ([facility]) Laboratory at [facility]. It has not been cleared or approved by the FDA. The laboratory is regulated under CLIA as qualified to perform high-complexity testing. This test is used for clinical purposes. It should not be regarded as investigational or for research. [facility] Comment: [VERIFIED DATE]06.01.18 Verified By:Fannie Olivas (Electronic Signature) Urine specimen (specimen) 05/25/2018 8:31 AM EST 05/25/2018 9:36 AM EST Narrative Resulting Agency Comment Spec In Lab Anup Hawkins MD MOLECULAR ORDERAB LES Performing Organization Address [facility]/ZIP Co de Phone Number [facility] [place] [address] * (ABNORMAL) Urinalysis with reflex Culture (05/25/2018 [...] LABORATORY Leukocytes, Urine Dipstick Negative Negative [facility] Appearance, Urine Dipstick Clear Clear [facility] Specific Herman Urine Automated 1.017 1.002 - 1.030 [facility] Color, Urine Dipstick Yellow Yellow [facility] Reflex to Culture No [facility] Urine specimen (specimen) 05/25/2018 8:31 AM EST 05/25/2018 8:34 AM EST Narrative Resulting Agency Comment Spec In Lab Anup Hawkins [place] [address] * (ABNORMAL) Protein/Creatinine Ratio, urine (05/25/2018 8:31 AM EST) Creatinine, Urine 78 mg/dL [facility] Protein, Urine 741(H) 0 - 12 mg/dL [facility] Protein / Creatinine Ratio, Urine 9.5 ratio [facility] Urine specimen (specimen) 05/25/2018 8:31 AM EST 05/25/2018 8:35 AM EST Narrative Resulting Agency Comment Spec In Lab Anup Hawkins MD URINE ORDERABLES [facility] [place] [address] * Differential, Automated (05/25/2018 8:30 AM EST) Neutrophil % 62.3 % [facility] Neutrophil Absolute 2.72 1.70 - 6.10 x10(3)/[facility] Lymph % 21.8 % [facility] Lymphocytes Abs 1.0 0.9 - 3.2 x10(3)/[facility] Monocyte % 10.3 % [facility] Monocyte Abs 0.4 0.3 - 0.9 x10(3)/[facility] Eos % 4.4 % [facility] Eosinophils Abs 0.2 0.0 - 0.4 x10(3)/[facility] Basophil % 0.7 % [facility] Baso Absolute 0.0 0.0 - 0.1 x10(3)/[facility] Immature Gran % 0.50 % [facility] Comment: Immature granulocytes(IG's)percentage and absolute count will include metamyelocytes, myelocytes, and promyelocytes. Blood smears from CBCs yielding IG's will be scanned manually for concordance. If this scan disagrees with the automated IG or if promyelocytes are noted, a manual differential will be performed. Immature Gran Absolute 0.02 0.00 - 0.04 x10(3)/[facility] Blood specimen (specimen) 05/25/2018 8:30 AM EST 05/25/2018 8:34 AM EST Narrative Resulting Agency Comment Spec In Lab Anup Hawkins MD HEMATOLOGY ORDERA BLES [facility] [place] [address] * (ABNORMAL) Hemogram (05/25/2018 8:30 AM EST) White Blood Cell 4.4 4.0 - 9.5 x10(3)/mc L [facility] Red Blood Cell 3.06(L) 4.58 - 5.54 x10(6)/mc L [facility] Hemoglobin 9.3(L) 13.7 - 16.5 gm/dL [facility] Hematocrit 29.2(L) 40.5 - 48.5 % [facility] Mean Cell Volume 95.4(H) 82.9 - 93.1 fL [facility] Mean Cell Hemoglobin 30.4 27.5 - 32.1 pg [facility] Mean Cell Hemoglobin Concentration 31.8(L) 32.0 - 35.7 gm/dL [facility] Platelet 190 145 - 357 x10(3)/mc L [facility] RDW Standard Deviation 52.3(H) 36.0 - 45.0 [facility] RDW coefficient of variation 14.9(H) 11.4 - 13.8 % [facility] Mean Platelet Volume 8.6 7.6 - 12.9 [facility] NRBC% auto 0.0 % [facility] NRBC Absolute 0.000 0.000 - 0.000 x10(3)/mc L [facility] Blood specimen (specimen) 05/25/2018 8:30 AM EST 05/25/2018 8:34 AM EST Narrative Resulting Agency Comment Spec In Lab Anup Hawkins MD HEMATOLOGY ORDERA BLES [facility] [place] [address] * (ABNORMAL) Reticulocyte Count (05/25/2018 8:30 AM EST) Reticulocyte % 0.8 0.7 - 2.6 % [facility] Retic Abs # 0.020(L) 0.030 - 0.120 x10(6)/mc L [facility] Immature Retic% 6.6 0.0 - 15.6 % [facility] Reticulated Hgb 34.0 31.3 - 40.2 pg [facility] Blood specimen (specimen) 05/25/2018 8:30 AM EST 05/25/2018 8:34 AM EST Narrative Resulting Agency Comment Spec In Lab Anup Hawkins MD HEMATOLOGY ORDERA BLES Performing Organization Address [facility] Co de Phone Number [facility] [place] [address] * Uric acid (05/25/2018 8:30 AM EST) Uric Acid 5.6 3.5 - 8.5 mg/dL [facility] Blood specimen (specimen) 05/25/2018 8:30 AM EST 05/25/2018 8:34 AM EST Narrative Resulting Agency Comment Spec In Lab Anup Hawkins MD CHEMISTRY ORDERAB LES Performing Organization Address [facility] Co de Phone Number [facility] [place] [address] * (ABNORMAL) Phosphorus (05/25/2018 8:30 AM EST) Phosphorus 5.6(H) 2.5 - 4.5 mg/dL [facility] Blood specimen (specimen) 05/25/2018 8:30 AM EST 05/25/2018 8:34 AM EST Narrative Resulting Agency Comment Spec In Lab Anup Hawkins MD CHEMISTRY ORDERAB LES Performing Organization Address City/[facility]/ZIP Co de Phone Number [facility] [place] [address] * Tacrolimus level (05/25/2018 8:30 AM EST) Tacrolimus 16.7 ng/mL [facility] Comment: Trough therapeutic: ??5-15 ng/mL Performed by ultra-performance liquid chromatography tandem mass spectrometry (UPLCMS/MS). This test was developed and its performance characteristics determined by [facility]. It has not been cleared or [...] MD CHEMISTRY ORDERAB LES [facility] [place] [address] * Cholesterol, total (05/25/2018 8:30 AM EST) Cholesterol, Total 174 mg/dL [facility] Comment: Lower Risk: <200 mg/dL Average Risk: 200-239 mg/dL Higher Risk: >at=934 mg/dL Lipid Interpretation See Note [facility] Comment: Lipid management should be guided by a patient? s ASCVD risk, goals and preferences. ACC/AHA Guidelines recommend high intensity statin if clinical ASCVD or LDL greater than or equal to 190 mg/dL. http://tinyurl.com/EKU-BPY-Wcsbxabjj Adults aged 40-75 with LDL 70-189 mg/dL should have their 10 year ASCVD risk estimated with the ACC/AHA ASCVD risk junior estimator http://tools.acc.org/WOQBB-Ugpr-Qtvxgffxt/ Statin should be discussed if risk greater [...] MD CHEMISTRY ORDERAB LES [facility] [place] [address] * (ABNORMAL) Comprehensive metabolic panel (non-fasting) (05/25/2018 8:30 AM EST) Glucose 97 65 - 199 mg/dL [facility] Comment:Diabetes: >=200 mg/d L plus symptoms Blood Urea Nitrogen 48(H) 10 - 20 mg/dL [facility] Creatinine 3.08(H) 0.80 - 1.50 mg/dL [facility] Sodium 142 135 - 145 mmol/L [facility] [...] 10.5 mg/dL [facility] Protein, Total 5.9(L) 6.1 - 8.0 gm/dL [facility] Albumin 3.5 3.2 - 5.2 gm/dL [facility] Aspartate Aminotransferase 17 0 - 39 unit/L [facility] Alanine Aminotransferase 10 0 - 55 unit/L [facility] Alkaline Phosphatase 91 40 - 120 unit/L [facility] Bilirubin, Total 0.2 0.2 - 1.3 mg/dL [facility] Est Glomerular Filtration Rate 22(L) >=60 mL/min/1. 73 m?? [facility] Comment: The eGFR was calculated using the CKD-EPI equation. As with all creatinine based estimates of kidney function, eGFR values calculated with the CKD-EPI equation are not accurate in patients with acute kidney failure, extremes of body mass or the acutely ill. http://Vimty/[facility]Enkf eGFR 25(L) >=60 mL/min/1. 73 m?? [facility] Comment: The eGFR was calculated using the CKD-EPI equation. As with all creatinine based estimates of kidney function, eGFR values calculated with the CKD-EPI equation are not accurate in patients with acute kidney failure, extremes of body mass or the acutely ill. http://Vimty/[facility]kf Blood specimen (specimen) 05/25/2018 8:30 AM EST 05/25/2018 8:34 AM EST Narrative Resulting Agency Comment Spec In Lab Anup Hawkins MD CHEMISTRY ORDERAB LES Performing Organization Address [facility] Co de Phone Number [facility] [place] [address] * Magnesium (05/25/2018 8:30 AM EST) Magnesium 0.86 0.69 - 1.07 mmol/L [facility] Blood specimen (specimen) 05/25/2018 8:30 AM EST 05/25/2018 8:34 AM EST Narrative Resulting Agency Comment Spec In Lab Anup Hawkins MD CHEMISTRY ORDERAB LES Performing Organization Address [facility] Co de Phone Number [facility] [place] [address] documented in this encounter Visit Diagnoses Diagnosis S/P kidney transplant Kidney replaced by transplant Renal cell carcinoma, unspecified laterality Aftercare following organ transplant FPC current use of immunosuppressive drug H/O kidney transplant Kidney replaced by transplant documented in this encounter Care Teams Chemical Pumper Relationship Specialty Start Date End Date Carroll Fuentes DO [address] [place] [address] PCP - General 09/23/11 10/20/22 documented as of this encounter
--- OUTSIDE RECORDS SUMMARY | 2024-05-23 13:19 | XMS_ITS | Encounter Summary ---
Author Organization [facility] Address [facility] [place] [address] Care Team Providers Care Wedding Transportation Driver Name Role Phone AlfredoCarroll allison Primary Care Provider [phone] Reason for Referral * Physical Therapy (Routine) - Closed Specialty Diagnoses / Procedures Referred By Shashi ko Referred To Contact Physical Therapy Diagnoses Surgery follow-up Lida Peter MD [facility] [place] [address] [facility] [place] [address] Referral ID Status Reason Start Date Expiration Date V isits Requested Visits Authorized [id number] Closed Evaluate and Treat 05/27/2018 05/27/2019 1 1 Encounter Details Date Type Department Care Team (Late st Contact Info) Description 05/25/2018 11:30 AM EST Office Visit [place] [address] Lida Peter MD [facility] [place] [address] CKD (chronic kidney disease) stage [...] surgery documented in this encounter Care Teams Wedding Transportation Driver Relationship Specialty Start Date End Date Carroll Fuentes DO [address] [place] [address] PCP - General 09/23/11 10/20/22 documented as of this encounter
--- OUTSIDE RECORDS SUMMARY | 2024-05-23 13:19 | XMS_ITS | Encounter Summary ---
Author Organization [facility] Address [facility] [place] [address] Care Team Providers Care Line Erector Name Role Phone AlfredoCarroll allison Primary Care Provider Encounter Details Date Type Department Care Team (Late st Contact Info) Description 05/24/2018 Notes [place] [address] Sushila Feng, RN Social History Tobacco Use [...] Kurt Medina MD 14:48: Call placed to [facility], spoke with Tool Maintenance Worker Ilda. Last dose of IV Vancomycin was [...] filedocumented in this encounter Care Teams Line Erector Relationship Specialty Start Date End Date Carroll Fuentes DO [address] [place] [address] PCP - General 09/23/11 10/20/22 documented as of this encounter
--- OUTSIDE RECORDS SUMMARY | 2024-05-23 13:19 | XMS_ITS | Encounter Summary ---
Author Organization [facility] [place] [address] Care Team Providers Care Associate Vice President Name Role Phone Carroll Fuentes DO Primary Care Provider [phone] Encounter Details Date Type Department Care Team (Late st Contact Info) Description 05/11/2018 Orders [place] [address] Kurt Medina MD [facility] [place] [address] Encounter for long-term (current) use of antibiotics [...] antibiotics documented in this encounter Care Teams Associate Vice President Relationship Specialty Start Date End Date Carroll Fuentes DO [address] [place] [address] PCP - General 09/23/11 10/20/22 documented as of this encounter
--- OUTSIDE RECORDS SUMMARY | 2024-05-23 13:19 | XMS_ITS | Encounter Summary ---
Author Organization [facility] Address [facility] [place] [address] Care Team Providers Care Sterile Process Tech Name Role Phone Alfredo, Carroll MIX Primary Care Provider [phone] Encounter Details Date Type Department Care Team (Late st Contact Info) Description 05/25/2018 10:10 AM EST Office Visit [place] [address] Tessa Flores, HOSPITAL TRAY SERVICE WORKER [facility] [address] Status post kidney transplant Social History Tobacco [...] Progress Notes * Tessa Flores MSW - 05/25/2018 10:10 AM EST Worker was asked to meet with Adama and his brother as they had some concerns about the next steps in Adama's housing plan. Adama was hospitalized here at [facility] recently then went to [facility]. Worker reviewed the inpatient notes that talked about completing a [place] termite treater helper care Medicaid application. Dr. Hawkins recommends a supervides setting for Adama like a penitentiary. Worker spoke to [facility] [place] who said that [facility]. At this time there was nothing further for worker to do. Worker met with Adama and his brother. Adama's brother said that they have [facility] for 3 [facility] and [facility] is slated to be transferred tomorrow. Adama said that they are working on an assisted living facility but there is many things that are required like notes from [facility] and such. Worker explained that since [facility] initially sent the notes to [facility] would have them. Worker also said that the facility would have a discharge planning team just like [facility]. Adama and his brother thanked worker for the information. documented in this encounter Plan of Treatment Not on file documented as of this encounter Visit Diagnoses Diagnosis Status post kidney transplant Kidney replaced by transplant documented in this encounter Care Teams Sterile Process Tech Relationship Specialty Start Date End Date Carroll Fuentes DO [address] [place] [address] PCP - General 09/23/11 10/20/22 documented as of this encounter
--- OUTSIDE RECORDS SUMMARY | 2024-05-23 13:19 | XMS_ITS | Encounter Summary ---
Author Organization [facility] [place] [address] Care Team Providers Care Medical Research Tech Name Role Phone AlfredoCarroll allison Primary Care Provider [phone] Encounter Details Date Type Department Care Team (Late st Contact Info) Description 06/05/2018 Telephone [place] [address] Damián Richter MD [facility] [place] [address] Social History Tobacco Use Types Packs/Day Years [...] MD - 06/05/2018 5:23 PM EST OSH: [facility]; [facility] Provider: Kurt Sandy Received a call the transfer center today concerning Adama Ram, 57-year-old gentleman with a history of renal transplant, epilepsy, and recent admission for fall with traumatic right frontal contusion. He was recently discharged from the [facility] trauma service to a rehab facility. Per [...] on filedocumented in this encounter Care Teams Medical Research Tech Relationship Specialty Start Date End Date Carroll Fuentes DO [address] [place] [address] [address] [facility] [place] [address] PCP - General 09/23/11 10/20/22 documented as of this encounter
--- OUTSIDE RECORDS SUMMARY | 2024-05-23 13:19 | XMS_ITS | Encounter Summary ---
Author Organization [facility] [address] Care Team Providers Care Chemist Food Name Role Phone Carroll Fuentes DO Primary Care Provider Encounter Details Date Type Department Care Team (Late st Contact Info) Description 05/11/2018 Orders [place] [address] Kurt Medina MD [facility] [place] [address] Encounter for long-term (current) use of antibiotics [...] antibiotics documented in this encounter Care Teams Chemist Food Relationship Specialty Start Date End Date Carroll Fuentes DO [address] [place] [address] PCP - General 09/23/11 10/20/22 documented as of this encounter
--- OUTSIDE RECORDS SUMMARY | 2024-05-23 13:19 | XMS_ITS | Encounter Summary ---
Author Organization [facility] Address [facility] [place] [address] Care Team Providers Care Classification Analyst Name Role Phone Sebastian Garcia Primary Care Provider [phone] Reason for Referral * Diagnostic Test (Routine) - Closed Specialty Diagnoses / Procedures Referred By Contac t Referred To Contact Radiology Diagnoses Subarachnoid hemorrhage Procedures CT Head wo Contrast (Generic) Dmitriy Hoffman APRN [facility] [place] [address] [facility] [place] [address] Referral ID Status Reason Start Date Expiration Date V isits Requested Visits Authorized [id number] Closed Specialty Service Requested 06/24/2018 09/22/2018 1 1 Reason for Visit * Reason Comments Trauma Alert Hospital Transfer * Auth/Cert Specialty Diagnoses / Procedures Referred By Contac t Referred To Contact Diagnoses Subarachnoid hemorrhage IgA nephropathy Subarachnoid hemorrhage Procedures EMERGENCY IPI Referral ID Status Reason Start Date Expiration Date Visits Re quested Visits Authorized [id number] 1 1 Encounter Details Date Type Department Care Team (Latest Contact Info) Description 06/02/2018 4:07 PM EST - 06/04/2018 1:30 PM EST Hospital Encounter [address] [place] [address] Lawrence Flores MD [facility] [place] [address] IgA nephropathy; Subarachnoid hemorrhage; Swelling; Deep vein [...] encounter Discharge Summaries * Lela Evans S, IMPREGNATING MACHINE OPERATOR - 06/04/2018 12:19 PM EST Images from [...] CLIN 08/18/2018 10:30 AM Chanel Smith MD [facility] [address] Other In-hospital Issues: - Acute [...] is a 57 y.o. male presents to [facility] s/p fall on aspirin. Description of events leading up to injury includes patient fell down a few steps, onto left head. Patient unable to recall events. Bleeding noted from left head, controlled on scene with direct pressure. Brought to [facility] where heavy venous bleeding was noted from head laceration, controlled with two sutures and pressure dressing. Altered mental status noted at OSH, eportedly waxing and waning. CT head at OSH demonstrated subarachnoid hemorrhage. Patient reported to OSH that he is on coumadin. His INR at OSH was 1.0. A cervical collar was applied and the patient was transferred to [facility]. ?? 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 Patient has been followed by Dr. [...] at outside hospital and was transferred to [facility]. Of note, patient had been on coumadin [...] will be to discharge patient back to [facility] with patient's brother Lucas as transportation. Lucas has been given frequent updates with review of plan of care. Update to Dr. Mc at [facility] was given last night with plan to [...] CKD, s/p donor renal transplant 2002 and kotlik nephrectomy 08/13 to papillary CA in 2017.Followed [...] -transfer to floor status, pending PT/OT eval. [facility] able to take patient today if [...] Neurosurgery standpoint ?? Please page neurosurgery at [phone]??with any questions regarding this patient. ? REFERRALS: [...] images without intravenous contrast were obtained at [facility] on 06/02/2018 at 1324. COMPARISON: CT [...] STOPPED Medications aspirin 81 mg Tbec Disposition: [facility] with transportation via private car with brother Lucas Ambrose. Scheduled Appointments: The following appointments have been scheduled on your behalf: Future Appointments Date Time Provider Department Center 07/19/2018 10:30 AM Kurt Medina MD Leb Infec 5C [facility] 07/26/2018 10:00 AM LAB, THREE L Lab 3L [facility] 07/26/2018 11:00 AM Anup Hawkins MD Leb Trans 2M [facility] 08/18/2018 10:30 AM Chanel Smith MD [facility] Outpatient Services/Studies: CT Head wo Contrast (Generic) Standing Status: Future Standing Exp. Date: 01/02/19 Question Response Notes Where will study be performed? [place] [facility] [120] Reason for exam and clinical [...] 1. You will have follow-up appointments at [facility] as indicated in the ???Future Appointments and [...] on the next business day. Please call [phone] if you do not hear from us by that time, as your timely follow-up is very important to us. Your care was managed by the Trauma and Acute Care Surgery Team at [facility]. If you have any questions or concerns, please feel free to contact us. Provider Contact Information: General Surgery: [facility] (after business hours): CC: Primary Care Physician: SEBASTIAN GARCIA Requests for more appointments have been made and this list will likely need Update after weekend of discharge. * please call General surgery for questions! Future Appointments Date Time Provider Department Center 07/19/2018 10:30 AM Kurt Medina MD Leb Infec 5C [facility] 07/26/2018 10:00 AM LAB, THREE L Lab 3L [facility] 07/26/2018 11:00 AM Anup Hawkins MD Le Trans [facility] 08/18/2018 10:30 AM Chanel Smith MD [facility] General Instructions NON-OPERATIVE HEAD INJURY/BLEED DISCHARGE INSTRUCTIONS PRESCRIPTION INSTRUCTIONS: Please see the medication reconciliation list on this discharge summary for a current list of your medications. Stop the use of blood thinning medications until instructed otherwise by your surgical team. This includes medications known as antiplatelet, anticoagulant, and non-steroidal anti-inflammatory (NSAIDs) drugs. Common sudd-jxy-mfloejg medications which should be avoided include Aspirin, [...] a head injury. - When your health career development specialist says you are well enough, return to your normal activities gradually, not all at once. - Talk with your health career development specialist about when you can return to [...] Provider. Please call the Neurosurgery Office at [phone] if you do not receive a scheduled appointment within two weeks Imaging: [] No Imaging required at follow-up. [x] Head CT Your care was managed by the Trauma and Acute Care Surgery Team at [facility]. If you have any questions or concerns, please feel free to contact us. Provider Contact Information: General Surgery Clinic: Nurses line for questions: [facility] (after business hours): CC: Sebastian Garcia DO [facility] Lucrecia Mclean APRN Signed: Lela Evans APRN Department of Surgery 06/04/2018 Trauma pager [phone] documented in this encounter Discharge Instructions * [...] anticoagulant, and non-steroidal anti-inflammatory (NSAIDs) drugs. Common mvkr-hen-qsyetkg medications which should be avoided include Aspirin, [...] a head injury. - When your health career development specialist says you are well enough, return to your normal activities gradually, not all at once. - Talk with your health career development specialist about when you can return to [...] Provider. Please call the Neurosurgery Office at [phone] if you do not receive a scheduled [...] 1. You will have follow-up appointments at [facility] as indicated in the ???Future Appointments and [...] on the next business day. Please call [phone] if you do not hear from us by that time, as your timely follow-up is very important to us. Your care was managed by the Trauma and Acute Care Surgery Team at [facility]. If you have any questions or concerns, please feel free to contact us. Provider Contact Information: General Surgery: [facility] (after business hours): CC: Primary Care Physician: SEBASTIAN GARCIA Requests for more appointments have been made and this list will likely need Update after weekend of discharge. * please call General surgery for questions! Future Appointments Date Time Provider Department Center 07/19/2018 10:30 AM Kurt Medina MD Leb Infec 5C [facility] 07/26/2018 10:00 AM LAB[facility] 07/26/2018 11:00 AM Anup Hawkins MD Leb Trans 2M [facility] 08/18/2018 10:30 AM Chanel Smith MD [facility] documented in this encounter Medications at [...] 06/04/2018 1:26 PM EST Office of Care Management/College Associate Patient has been offered a snf bed at [facility]. No MD to MD report necessary. Please call Nursing Report to , ask for lasting machine operator bed. Info to accompany patient: Narcotic Prescriptions PASRR Copies of Medication Administration Records and IV sheets for past 10 days. Plan: College Associate will be available to the patient and Transport Specialist-RN and/or Social Workerfor further assistance. Patient will be discharged to: [facility] [place] [address] Blanca Martinez College Associate Pager [phone] * Venus Nagel RN - 06/04/2018 12:29 PM EST OFFICE OF CARE MANAGEMENT/Transport Specialist/PROGRESS NOTE e-DH reviewed. Report received from Trauma Team on [phone] Patient continues to improve and has an accepted bed at [facility] [phone]. (Pt is returning to facility from this admission). BrotherLucas is to transport via car. CM confirmed with facility they are aware and accepted patient for today's admission. Plan: CM will continue to follow for coordination of care and to facilitate discharge planning. Venus Nagel RN CM Pager [phone] * Erika Vivas RN - 06/03/2018 3:06 PM EST [facility]. Patient AOx [...] ml/min N18.4 ??? 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 technician terminal and repeater current use of immunosuppressive drug Z79.899 ??? [...] 05/25/18: 89.5 kg (197 lb 6.4 oz). [facility] Body Weight (IBW): [facility] body weight: 77.6 kg (171 lb 1.2 [...] Awake and alert to person. Oriented to [facility] and hospital. Unable to name hospital of [...] images without intravenous contrast were obtained at [facility] on 06/02/2018 at 1324. COMPARISON: CT [...] transplant 2002 and renal papillary CA s/p kotlik nephrectomy. Patient has been followed by Dr. [...] at outside hospital and was transferred to [facility]. Of note, patienthad been on coumadin in [...] - NBO: miralax, pericolace - Last BM: CORE SHAPER TOP RENAL: - CKD, s/p donor renal transplant 2002 and kotlik nephrectomy 2/2 to papillary CA in 2017.Followed [...] -transfer to floor status, pending PT/OT eval. [facility] able to take patient today if [...] Neurosurgery standpoint ?? Please page neurosurgery at [phone] with any questions regarding this patient. REFERRALS: -none to date Active issues to be addressed at discharge: -ongoing transplant-nephrology management. -PCP for ongoing medication management, vital sign check, antibiotic management. - lymphedema clinic Incidental Findings: - none [] Incidental Findings Form Completed Lela Evans APRN 06/03/2018 Trauma pager [phone] ADDENDUM: I have independently seen and evaluated [...] on subarachnoid hemorrhage. LAWRENCE FLORES MD * Maria De Jesus Lopez RN - 06/03/2018 12:01 PM EST RN-ASSISTANT ELEMENTARY TEACHER, Office of Care Management Maria De Jesus Lopez RN,BSN, ACM Pager # [phone] e-DH reviewed patient discussed with multidisciplinary team. Patient know to CABLE COVERER and he has completed IA. Patient reportedly was at: [facility] [place] [address] Planning to transition to [facility] assisted living. Team reporting medically clear for discharge once seen by rehab. Rehab has been called. CABLE COVERER note says OR today for fasciotomy closure- ask team to clarify. If he clears rehab and is not going to OR he would be ready for discharge today. CABLE COVERER/Transport Specialist remains available as needed for coordination of [...] a Neurosurgery standpoint Please page neurosurgery at [phone] with any questions regarding this patient. documented in this encounter H&P Notes * Lawrence Flores MD - 06/02/2018 4:23 PM EST TRAUMA & ACUTE SURGICAL CARE ADMISSION HISTORY AND PHYSICAL Patient Name: Christy Ambrose Level of Activation: Alert MR#: [id number] [ ]Scene Call or [X]Hospital Transfer : [id number] CC/MECHANISM OF INJURY: 57 y.o. Male s/p fall, on aspirin, on 06/02 HISTORY OF PRESENT ILLNESS: Christy Ambrose is a 57 y.o. male presents to [facility] s/p fall on aspirin. Description of events leadingup to injury includes patient fell down a few steps, onto left head. Patient unable to recall events. Bleeding noted from left head, controlled on scene with direct pressure. Brought to [facility] where heavy venous bleeding was noted from head laceration, controlled with two sutures and pressure dressing. Altered mental status noted at OSH, eportedly waxing and waning. CT head at OSH demonstrated subarachnoid hemorrhage. Patient reported to OSH that he is on coumadin. His INR at OSH was 1.0. A cervical collar was applied and the patient was transferred to [facility]. 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 PRO EXC PAROTD, TOTAL, UNILAT [...] performed by Odalis Elias MD [facility] MAIN OR ??? PRO REBL VES GRAFT, UP EXTREM Left 04/06/2018 REPAIR BLOOD VESSEL WITH GRAFT OTHER THAN VEIN, UPPER EXTREMITY (WRVU 15.83) performed by Lida Peter MD at [facility] MAIN OR ??? PRO RELIEVE PRESSURE ON NERVE(S) Left 04/06/2018 (MSURG) CARPAL TUNNEL (WRVU 4.82) performed by Silviano Sparks MD at [facility] MAIN OR ??? PRO REPAIR INTERMEDIATE S/A/T/E 2.6-7.5 CM 04/19/2012 REPAIR INTERMEDIATE WOUND, (NO HANDS OR FEET) 2.6 TO 7.5CM, UPPER EXTREMITY performed by SABRINA SANCHEZ at [facility] MAIN OR ? ? PRO REPAIR INTERMEDIATE S/A/T/E > 30.0 CM Left 04/14/2018 REPAIR INTERMEDIATE WOUND, (NO HANDS OR FEET) >30.0CM, UPPER EXTREMITY (WRVU 5) performed by Yimi Easton MD at [facility] MAIN OR ??? PRO REVISE MEDIAN N/CARPAL TUNNEL SURG Left 04/06/2018 MEDIAN NERVE DECOMPRESSION (CARPAL TUNNEL RELEASE) (WRVU 4.97) performed by Lida Peter MD [facility] MAIN OR ? ? PRO SPLIT GRFT TRUNK, ARM, LEG <100SQCM Left 04/26/2018 SPLIT THICK SKIN GRAFT,100 SQ CM OR LESS, ARMS (WRVU 9.9) performed by Silviano Sparks MD at [facility] MAIN OR ? ? PRO SPLIT GRFT, HEAD, FAC, HAND, FEET <100SQCM N/A 02/20/2016 SPLIT THICKNESS SKIN SPLIT GRAFT,100SQ CM OR LESS, NECK performed by Miguel Angel Moreno MD at [facility] OR ??? PRO SPLIT GRFT, TRUNK, ARM, LEG EA 100SQCM N/A 04/26/2018 EA.ADDITIONAL 100SQ.CM STSG (WRVU 1.72) performed by Silviano Sparks MD at [facility] MAIN OR ??? PRO UPPER GI ENDOSCOPY, BIOPSY N/A 05/13/2017 EGD WITH BIOPSY (WRVU 2.49) performed by Aditya Barrera MD at [facility] ENDOSCOPY ??? PRO VASCULAR SURGERY PROCEDURE UNLIST Left 11/20/2015 LIGATION\REPAIR AV FISTULA performed by Camilo Ireland MD at [facility] MAIN OR ??? PRO VASCULAR SURGERY PROCEDURE UNLIST Left 11/20/2015 EXCISION VEIN FROM HAND performed by Camilo Ireland MD at [facility] MAIN OR ??? US RENAL [...] ?? Tertiary survey in AM ?? [facility] Bur[facility] Flores MD 06/02/2018 ADDENDUM: I have independently seen and evaluated the patient. I agree with the assessment and planlisted above with the following additions: Christy Ginna Ambrose is a 57 y.o. male with multiple medical problems including renal transplant graft. 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 He is now status post fall down several steps with retrograde amnesia. Taken to an outside hospital where he was noted to have a large scalp laceration with bleeding and a subarachnoid hemorrhage. Transferred to [facility] for continued care. Primary and secondary surveys [...] Of Care Reviewed With patient;durable power of art handler;sibling Goal: Fall Prevention-Safe Patient Handling Outcome: Outcome [...] awaiting discharge. PLAN MOVING FORWARD: Discharge to [facility] with brother. Pt D/C to [facility] with brother and all belongings at 1315. [...] performed by Miguel Angel Moreno MD at [facility] MAIN OR ??? PRO DECOMPRESS FOREARM, BRACH ART EXPLOR Left 04/06/2018 FASCIOTOMY, FOREARM, WITH BRACHIAL ARTERY EXPLORATION (WRVU 8.41) performed by Lida Peter MDat [facility] MAIN OR ??? PRO DIRECT REPAIR RUPTURED ANEURYSM, AXILLO-BRACHIAL ARM INCIS Left 04/06/2018 @REPAIR, RUPTURED AXILLARY OR BRACHIAL ARTERY ANEURYSM BY ARM INCISION (WRVU *) performed by Lida Peter MD at [facility] MAIN OR ??? PRO EXC [...] 6.25) performed by Odalis Elias MD at [facility] OR ??? PRO NEGATIVE PRESSURE WOUND THERAPY, LESS THAN OR EQUAL TO 50 SQCM Left 04/19/2018 DRESSING CHANGE (VAC ASSISTED) UP TO 50SQ.CM (WRVU 0.55) performed by Odalis Elias MD [facility] OR ??? PRO REBL VES GRAFT, UP [...] UPPER EXTREMITY performed by SABRINA SANCHEZ at [facility] OR ? ? PRO REPAIR INTERMEDIATE S/A/T/E > 30.0 CM Left 04/14/2018 REPAIR INTERMEDIATE WOUND, (NO HANDS OR FEET) >30.0CM, UPPER EXTREMITY (WRVU 5) performed by Yimi Easton MD at [facility] MAIN OR ??? PRO REVISE MEDIAN N/CARPAL TUNNEL SURG Left 04/06/2018 MEDIAN NERVE DECOMPRESSION (CARPAL TUNNEL RELEASE) (WRVU 4.97) performed by Lida Peter MD [facility] MAIN OR ? ? PRO SPLIT GRFT TRUNK, ARM, LEG <100SQCM Left 04/26/2018 SPLIT THICK SKIN GRAFT,100 SQ CM OR LESS, ARMS (WRVU 9.9) performed by Silviano Sparks MD at [facility] MAIN OR ? ? PRO SPLIT GRFT, HEAD, FAC, HAND, FEET <100SQCM N/A 02/20/2016 SPLIT THICKNESS SKIN SPLIT GRAFT,100SQ CM OR LESS, NECK performed by Miguel Angel Moreno MD at [facility] MAIN OR ??? PRO SPLIT GRFT, TRUNK, ARM, LEG EA 100SQCM N/A 04/26/2018 EA.ADDITIONAL 100SQ.CM STSG (WRVU 1.72) performed by Silviano Sparks MD at [facility] MAIN OR ??? PRO UPPER GI ENDOSCOPY, BIOPSY N/A 05/13/2017 EGD WITH BIOPSY (WRVU 2.49) performed by Aditya Barrera MD at [facility] ENDOSCOPY ??? PRO VASCULAR SURGERY PROCEDURE UNLIST Left 11/20/2015 LIGATION\REPAIR AV FISTULA performed by Camilo Ireland MD at [facility] MAIN OR ??? PRO VASCULAR SURGERY PROCEDURE UNLIST Left 11/20/2015 EXCISION VEIN FROM HAND performed by Camilo Ireland MD at [facility] MAIN OR ??? US RENAL TRANSPLANT BIOPSY 12/31/2010 Social History: Patient had been living with his mother but she is now living in a nursing facilityw/ pt most recently at a [facility] in [place]. Brother reports that pt will be going to [facility] for cont in-pt rehab with hopes to then move into [facility]isted living afteward Stairs:unknown Baseline Mobility:amb w/ cane Equipment at home: cane Precautions/Special Considerations: fall, decreased ST memory Subjective: Patient states ???I haven't had falls... I, always use the cane... Pt's brother reportsthat when he gets to [facility] that he will have to manage [...] and cooperative and understands plan for ongoing in-prescriptionist rehab to prepare pt for more indep living at assisted living facility at [facility]. Pt presents w/functional limitations in memory, [...] via car transport w/ brother to SNF ([facility]) tomorrow. Discharge Recommendations: Based on the current [...] minutes home management ZORAIDA THEODORE, PT Pager: [phone] PT Evaluation Code Rationale: ?? Diagnosis & [...] G-Code functional level is 20 % impaired [facility] AM-PAC 6 Clicks/stairs Basic Mobility Inpatient [...] transplant 2002 and renal papillary CA s/p kotlik nephrectomy. Patient has been followed by Dr. [...] SAH at outside hospital and wastransferred to [facility]. Precautions/Restrictions: fall Precautions Comments: activity as tolerated [...] to be conditionally independent for transition to [facility]. Anticipate Pt will require a short inpatient [...] Anticipated Discharge Disposition: inpatient rehabilitation facility Pager: [phone] Evelyne Gaytan OT 06/03/2018 Occupational Therapy Rehabilitation Department 06/03/18 4714 Rehab Evaluation Document Type evaluation Total Evaluation [...] transplant 2002 and renal papillary CA s/p kotlik nephrectomy. Patient has been followed by Dr. [...] at outside hospital and was transferred to [facility]. Hearing Precautions/Limitations WFL Precautions/Restrictions fall Precautions Comments activity as tolerated Limitations/Impairments safety/cognitive;sensory Treatment Number OT 1 Living Environment Patient population Adult Living Environment Living Environment Comment Pt was at a rehab facility prior to admission. He will be moving to [facility] next week. Functional Level Prior Prior Functional [...] Pain Level 3 (LUE) Bed Mobility Assessment/Treatment Seuaqy-dk-Nkq [place] (Bed Mobility) independent Impairments (Bed Mobility) pain Fre-vi-Gmssjz [place] (Bed Mobility) independent Transfer Assessment/Treatment Bed-Chair [place] (Transfers) supervision required Chair-Bed [place] (Transfers) supervision required Tiy-Jynip-Tbt Assistive Device (Transfers) straight cane [place] (Sit-Stand Transfers) supervision required [place] (Stand-Sit Transfers) supervision required Yhb-Wuovq-Ewv Assistive Device (Transfers) straight cane Impairments (Transfers) balance impaired;coordination impaired;pain;ROM (range of motion) decreased;strength decreased Gait Assessment/Treatment [place] (Gait) contact guard assist Assistive Device (Gait) [...] Body Dressing Assessment/Training Position (LB Dressing) sitting;standing [place] Level (LB Dressing) minimum assist (75% patient [...] pt. Report given to SAVANNA Nelson [address] [place]. All questions answered. 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 Brought to [facility] where heavy venous bleeding was noted from head laceration, controlled with two sutures and pressure dressing. Altered mental status noted at OSH, reportedly waxing and waning. CT head at OSH demonstrated subarachnoid hemorrhage. Patient reported to OSH that he is on coumadin. His INR at OSH was 1.0. A cervical collar was applied and the patient was transferred to [facility] for further management.Nephrology was consulted for further [...] performed by Miguel Angel Moreno MD at [facility] MAIN OR ??? PRO DECOMPRESS FOREARM, BRACH ART EXPLOR Left 04/06/2018 FASCIOTOMY, FOREARM, WITH BRACHIAL ARTERY EXPLORATION (WRVU 8.41) performed by Lida Peter, MDat [facility] MAIN OR ??? PRO DIRECT REPAIR RUPTURED ANEURYSM, AXILLO-BRACHIAL ARM INCIS Left 04/06/2018 @REPAIR, RUPTURED AXILLARY OR BRACHIAL ARTERY ANEURYSM BY ARM INCISION (WRVU *) performed by Lida Peter MD at [facility] MAIN OR ??? PRO EXC PAROTD, TOTAL, UNILAT RAD NECK Left 02/05/2016 @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, TOTAL, WITH UNILATERAL RADICAL NECK DISSECTION performed by Miugel Angel Moreno MD at [facility] MAIN OR ??? PRO EXC SKIN MALIG 3.1-4CM FACE, FACIAL Left 02/05/2016 EXC MALIGNANT LESION, 3.1 TO 4.0CM, FACE performed by Miguel Angel Moreno MD at [facility] MAIN OR ? ? PRO [...] 6.25) performed by Odalis Elias MD at [facility] MAIN OR ??? PRO NEGATIVE PRESSURE WOUND THERAPY, LESS THAN OR EQUAL TO 50 SQCM Left 04/19/2018 DRESSING CHANGE (VAC ASSISTED) UP TO 50SQ.CM (WRVU 0.55) performed by Odalis Elias MD [facility] MAIN OR ??? PRO REBL VES GRAFT, UP EXTREM Left 04/06/2018 REPAIR BLOOD VESSEL WITH GRAFT OTHER THAN VEIN, UPPER EXTREMITY (WRVU 15.83) performed by Lida Peter MD at [facility] MAIN OR ??? PRO RELIEVE PRESSURE ON NERVE(S) Left 04/06/2018 (MSURG) CARPAL TUNNEL (WRVU 4.82) performed by Silviano Sparks MD at [facility] MAIN OR ??? PRO REPAIR INTERMEDIATE S/A/T/E 2.6-7.5 CM 04/19/2012 REPAIR INTERMEDIATE WOUND, (NO HANDS OR FEET) 2.6 TO 7.5CM, UPPER EXTREMITY performed by SABRINA SANCHEZ at [facility] MAIN OR ? ? PRO REPAIR INTERMEDIATE S/A/T/E > 30.0 CM Left 04/14/2018 REPAIR INTERMEDIATE WOUND, (NO HANDS OR FEET) >30.0CM, UPPER EXTREMITY (WRVU 5) performed by Yimi Easton MD at [facility] MAIN OR ??? PRO REVISE MEDIAN N/CARPAL TUNNEL SURG Left 04/06/2018 MEDIAN NERVE DECOMPRESSION (CARPAL TUNNEL RELEASE) (WRVU 4.97) performed by Lida Peter MD [facility] MAIN OR ? ? PRO SPLIT GRFT TRUNK, ARM, LEG <100SQCM Left 04/26/2018 SPLIT THICK SKIN GRAFT,100 SQ CM OR LESS, ARMS (WRVU 9.9) performed by Silviano Sparks MD at [facility] MAIN OR ? ? PRO SPLIT GRFT, HEAD, FAC, HAND, FEET <100SQCM N/A 02/20/2016 SPLIT THICKNESS SKIN SPLIT GRAFT,100SQ CM OR LESS, NECK performed by Miguel Angel Moreno MD at [facility] MAIN OR ??? PRO SPLIT GRFT, TRUNK, ARM, LEG EA 100SQCM N/A 04/26/2018 EA.ADDITIONAL 100SQ.CM STSG (WRVU 1.72) performed by Silviano Sparks MD at [facility] MAIN OR ??? PRO UPPER GI ENDOSCOPY, BIOPSY N/A 05/13/2017 EGD WITH BIOPSY (WRVU 2.49) performed by Aditya Barrera MD at [facility] ENDOSCOPY ??? PRO VASCULAR SURGERY PROCEDURE UNLIST Left 11/20/2015 LIGATION\REPAIR AV FISTULA performed by Camilo Ireland MD at [facility] MAIN OR ??? PRO VASCULAR SURGERY PROCEDURE UNLIST Left 11/20/2015 EXCISION VEIN FROM HAND performed by Camilo Ireland MD at [facility] MAIN OR ??? 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 - No acute indication for KARATE BLACK BELT like hyperkalemia or fluid overload or metabolic [...] this patient. Seen and Discussed w/ Dr. Beverly Rodríguez MD Nephrology Fellow #[id number] Associated attestation - Bashir Paul MD - [...] is brother Lucas Ambrose who resides in [facility], patient's 86 year old mother Ilda is listed as second POA. Current Coping/Education/Information Needs: confused but alert to hospitalization Current Functional Ability: TBD Functional Status Prior to Admission : Independent Home Environment: Patient has [facility] at [facility] and [facility] and expects to live in [facility]assisted living facility Social & Family Supports/Community Resources: Mother, brother Behavioral Health History: denies, per mother. Substance Use/Abuse: denies. Alcohol: Denies Tobacco: Denies Drug: Denies Health/Prescription Coverage: Primary Insurance: MEDICAID [place] Secondary Insurance: N/A Prescription Coverage: yes Preferred Pharmacy: [email or web address] in [place], [place]. Primary Care Provider: Sebastian Garcia DO [phone] Patient/Caregiver Goals of Treatment: Potential Needs for [...] ?? PLAN: 57 y.o. male presents to [facility] s/p fall on aspirin. Description of events leading up to injury includes patient fell down a few steps, onto left head. Patient unable to recall events. Bleeding noted from left head, controlled on scene with direct pressure. Brought to [facility] where heavy venous bleeding was noted from head laceration, controlled with two sutures and pressure dressing. Altered mental status noted at OSH, eportedly waxing and waning. CT head at OSH demonstrated subarachnoid hemorrhage. Patient reported to OSH that he is on coumadin. His INR at OSH was 1.0. A cervical collar was applied and the patient was transferred to [facility]. Plan: Likely DC to assisted living facility with follow up. A member of the Care Management team will continue to monitor progress, follow for continuity of care and assist with transition of care planning. JIMENA Duran Pager: [phone] * Consult Note - Sabrina Richter MD - 06/02/2018 5:08 PM EST Neurosurgery H&P / Consultation CC: [facility] s/p seizure and fall HPI: Asked by [...] *) performed by Lida Peter MD at [facility] OR ??? PRO EXC PAROTD, TOTAL, UNILAT [...] 6.25) performed by Odalis Elias MD at [facility] MAIN OR ??? PRO NEGATIVE PRESSURE WOUND THERAPY, LESS THAN OR EQUAL TO 50 SQCM Left 04/19/2018 DRESSING CHANGE (VAC ASSISTED) UP TO 50SQ.CM (WRVU 0.55) performed by Odalis Elias MD [facility] MAIN OR ??? PRO REBL VES GRAFT, UP EXTREM Left 04/06/2018 REPAIR BLOOD VESSEL WITH GRAFT OTHER THAN VEIN, UPPER EXTREMITY (WRVU 15.83) performed by Lida Peter MD at [facility] MAIN OR ??? PRO RELIEVE PRESSURE ON NERVE(S) Left 04/06/2018 (MSURG) CARPAL TUNNEL (WRVU 4.82) performed by Silviano Sparks MD at [facility] MAIN OR ??? PRO REPAIR INTERMEDIATE S/A/T/E 2.6-7.5 CM 04/19/2012 REPAIR INTERMEDIATE WOUND, (NO HANDS OR FEET) 2.6 TO 7.5CM, UPPER EXTREMITY performed by SABRINA SANCHEZ at [facility] MAIN OR ? ? PRO REPAIR INTERMEDIATE S/A/T/E > 30.0 CM Left 04/14/2018 REPAIR INTERMEDIATE WOUND, (NO HANDS OR FEET) >30.0CM, UPPER EXTREMITY (WRVU 5) performed by Yimi Easton MD at [facility] MAIN OR ??? PRO REVISE MEDIAN N/CARPAL TUNNEL SURG Left 04/06/2018 MEDIAN NERVE DECOMPRESSION (CARPAL TUNNEL RELEASE) (WRVU 4.97) performed by Lida Peter MD [facility] MAIN OR ? ? PRO SPLIT GRFT TRUNK, ARM, LEG <100SQCM Left 04/26/2018 SPLIT THICK SKIN GRAFT,100 SQ CM OR LESS, ARMS (WRVU 9.9) performed by Silviano Sparks MD at [facility] MAIN OR ? ? PRO SPLIT GRFT, HEAD, FAC, HAND, FEET <100SQCM N/A 02/20/2016 SPLIT THICKNESS SKIN SPLIT GRAFT,100SQ CM OR LESS, NECK performed by Migeul Angel Moreno MD at [facility] MAIN OR ??? PRO SPLIT GRFT, TRUNK, ARM, LEG EA 100SQCM N/A 04/26/2018 EA.ADDITIONAL 100SQ.CM STSG (WRVU 1.72) performed by Silviano Sparks MD at [facility] MAIN OR ??? PRO UPPER GI ENDOSCOPY, BIOPSY N/A 05/13/2017 EGD WITH BIOPSY (WRVU 2.49) performed by Aditya Barrera MD at [facility] ENDOSCOPY ??? PRO VASCULAR SURGERY PROCEDURE UNLIST Left 11/20/2015 LIGATION\REPAIR AV FISTULA performed by Camilo Ireland MD at [facility] MAIN OR ??? PRO VASCULAR SURGERY PROCEDURE UNLIST Left 11/20/2015 EXCISION VEIN FROM HAND performed by Camilo Ireland MD at [facility] MAIN OR ??? US RENAL [...] reviewed / reviewed with radiologist Impression: Christy Ambrsoe is a 57 y.o. male with traumatic [...] 12:41 pm) PATIENT INFO: ID #: ? [id number] ? : [birth year] (57 yrs) Name: ? CHRISTY AMBROSE ? Visit Date:06/04/2018 12:11 pm PERFORMED BY: Performed By: ? Patty Rodriguez RDMS Attending: ?Dudley JONES, Noel Resident: ? Javad JONES, Tristin Rubi Referred By: ?LELA EVANS Location: ? [place] SERVICE(S) PROVIDED: ??URTPR - Renal Transplant - Right - [id number] ? [id number] INDICATIONS: ??eval for obstruction, mass or lesion [...] 06/04/2018 12:41 pm) PATIENT INFO: ID #: [id number] : [birth year] (57 yrs) Name: CHRISTY AMBROSE Visit Date:06/04/2018 12:11 pm PERFORMED BY: Performed By: Patty Rodriguez RDMS Attending: Dudley JONES, Noel Resident: Tristin Farnsworth MD Referred By: LELA EVANS Location: [place] SERVICE(S) PROVIDED: URTPR - Renal Transplant - Right - [id number] INDICATIONS: eval for obstruction, mass or lesion [...] 12:39 pm) PATIENT INFO: ID #: ? [id number] ?: ??[birth year] (57 yrs) Name: ? CHRISTY Ginna CARRILLOON ?Visit Date: 06/04/2018 12:07 pm PERFORMED BY: Performed By: ? Patty Rodriguez RDMS Attending: ?Dudley JONES, Noel Resident: ? Javad JONES, Tristin Rubi Referred By: ?[facility] Location: ? [place] SERVICE(S) PROVIDED: ??URETRO - Retroperitoneal Complete - [id number] ? [id number] INDICATIONS: ??eval kotlik and transplant kidney for ??obstruction or malignancy [...] 06/04/2018 12:39 pm) PATIENT INFO: ID #: [id number] : [birth year] (57 yrs) Name: CHRISTY AMBROSE Visit Date: 06/04/2018 12:07 pm PERFORMED BY: Performed By: Patty Rodriguez RDMS Attending: Noel Buckner MD Resident: Tristin Farnsworth MD Referred By: LELA EVANS Location: [place] SERVICE(S) PROVIDED: URETRO - Retroperitoneal Complete - [id number] INDICATIONS: eval kotlik and transplant kidney for obstruction or malignancy [...] (06/04/2018 7:08 AM EST) Tacrolimus 2.2 ng/mL [facility] Comment: Trough therapeutic: ??5-15 ng/mL Performed by ultra-performance liquid chromatography tandem mass spectrometry (UPLCMS/MS). This test was developed and its performance characteristics determined by [facility]. It has not been cleared or approved by the FDA. The laboratory is regulated under CLIA as qualified to perform high-complexity testing. This test is used for clinical purposes. It should not be regarded as investigational or for research. Blood specimen (specimen) 06/04/2018 7:08 AM EST 06/06/2018 8:14 AM EST Narrative Resulting Agency Comment Spec In Lab Lela Evans APRN [place] [address] * Differential, Automated (06/04/2018 3:35 AM EST) Pathologist [facility] Neutrophil % 58.9 % [facility] Neutrophil Absolute 2.26 1.70 - 6.10 x10(3)/[facility] LABORATORY Lymph % 26.0 % [facility] Lymphocytes Abs 1.0 0.9 - 3.2 x10(3)/[facility] LABORATORY Monocyte % 9.1 % [facility] Monocyte Abs 0.4 0.3 - 0.9 x10(3)/[facility] LABORATORY Eos % 4.9 % [facility] Eosinophils Abs 0.2 0.0 - 0.4 x10(3)/[facility] Basophil % 0.8 % [facility] Baso Absolute 0.0 0.0 - 0.1 x10(3)/[facility] Immature Gran % 0.30 % [facility] Comment: Immature granulocytes(IG's)percentage and absolute count will include metamyelocytes, myelocytes, and promyelocytes. Blood smears from CBCs yielding IG's will be scanned manually for concordance. If this scan disagrees with the automated IG or if promyelocytes are noted, a manual differential will be performed. Immature Gran Absolute 0.01 0.00 - 0.04 x10(3)/[facility] LABORATORY Blood specimen (specimen) 06/04/2018 3:35 AM EST 06/04/2018 3:50 AM EST Narrative Resulting Agency Comment Spec In Lab Burak Flores MD [place] [address] * (ABNORMAL) Hemogram (06/04/2018 3:35 AM EST) Pathologist [facility] White Blood Cell 3.8(L) 4.0 - 9.5 x10(3)/mc L [facility] Red Blood Cell 2.40(L) 4.58 - 5.54 x10(6)/mc L [facility] Hemoglobin 7.5(L) 13.7 - 16.5 gm/dL [facility] Hematocrit 22.8(L) 40.5 - 48.5 % [facility] Mean Cell Volume 95.0(H) 82.9 - 93.[address] [facility] Mean Cell Hemoglobin 31.3 27.5 - 32.[address] [facility] Mean Cell Hemoglobin Concentration 32.9 32.0 - 35.7 gm/dL [facility] Platelet 103(L) 145 - 357 x10(3)/ L [facility] RDW Standard Deviation 51.3(H) 36.0 - 45.0 [facility] RDW coefficient of variation 14.7(H) 11.4 - 13.8 % [facility] Mean Platelet Volume 9.1 7.6 - 12.9 [facility]ORY NRBC% auto 0.0 % [facility] NRBC Absolute 0.000 0.000 - 0.000 x10(3)/[facility] LABORATORY Blood specimen (specimen) 06/04/2018 3:35 AM EST 06/04/2018 3:50 AM EST Narrative Resulting Agency Comment Spec In Lab Burak Flores MD HEMATOLOGY ORDERABLE S [facility] [place] [address] * (ABNORMAL) Basic Metabolic Panel (non-fasting) (06/04/2018 3:35 AM EST) Glucose 94 65 - 199 mg/dL [facility] Comment:Diabetes: >=200 mg/d L plus symptoms Blood Urea Nitrogen 52(H) 10 - 20 mg/dL [facility] Creatinine 3.37(H) 0.80 - 1.50 mg/dL [facility] Sodium 139 135 - 145 mmol/L [facility] Potassium 4.5 3.5 - 5.0 mmol/L [facility] Comment: Please note: ??Patients with WBC >100,000 may have falsely elevated Potassium levels. ??For accurate Potassium quantification in these patients send serum separator tube (gold top) for subsequent determinations. ??Contact the Clinical Chemistry Laboratory if there are any questions. Chloride 111(H) 98 - 107 mmol/L [facility] Carbon Dioxide 13(L) 22 - 31 mmol/L [facility] Anion Gap 15 5 - 15 mmol/L [facility] Calcium 7.5(L) 8.5 - 10.5 mg/dL [facility] Est Glomerular Filtration Rate 19(L) >=60 mL/min/1. 73 m?? [facility] Comment: The eGFR was calculated using the CKD-EPI equation. As with all creatinine based estimates of kidney function, eGFR values calculated with the CKD-EPI equation are not accurate in patients with acute kidney failure, extremes of body mass or the acutely ill. [email or web address] eGFR 22(L) >=60 mL/min/1. 73 m?? [facility] Comment: The eGFR was calculated using the CKD-EPI equation. As with all creatinine based estimates of kidney function, eGFR values calculated with the CKD-EPI equation are not accurate in patients with acute kidney failure, extremes of body mass or the acutely ill. [email or web address] Blood specimen (specimen) 06/04/2018 3:35 AM EST 06/04/2018 3:50 AM EST Narrative Resulting Agency Comment Spec In Lab Lela Evans APRN CHEMISTRY ORDERABLES [facility] [place] [address] * Duplex Study for DVT, Bilat legs (06/03/2018 2:50 PM EST) VB Text Report Department: Vascular Surgery Lab Patient: [id number] (ARNOL, CHRISTY) CPT: 03637 ICD10: I82.492;I82.512;I 82.511 Referring Physician: LELA EVANS [...] Text Report Department: Vascular Surgery Lab Patient: [id number] (ARNOL, CHRISTY) CPT: 12695 ICD10: I82.611;R60.9;I8 2.A11 Referring Physician: LELA EVANS [...] Lvl (NOVEMBER) 0.8(L) 1.0 - 3.5 mcg/mL [facility] Comment: Test Performed by: [facility] - [address] [address] Mycophen-G Lvl (NOVEMBER) 33(L) 35 - 100 mcg/mL [facility] Comment: ADDITIONAL INFORMATION Target steady-state trough concentrations vary depending on the type of transplant, concomitant immunosuppression, clinical/institutional protocols, and time post-transplant. Results should be interpreted in conjunction with this clinical information and any physical signs/symptoms of rejection/toxicity. Testing performed by Liquid Chromatography-Tandem Mass Spectrometry (LC-MS/MS). This test was developed and its performance characteristics determined by [facility] in a manner consistent with CLIA requirements. This test has not been cleared or approved by the U.S. Food and Drug Administration. Test Performed by: [facility] - [address] [address] Blood specimen (specimen) 06/03/2018 6:31 AM EST 06/03/2018 8:52 AM EST Narrative Resulting Agency Comment Spec In Lab Lela Kalyan Kale [facility] SEND OUT ORDERAB LES [facility] [place] [address] * Tacrolimus level (06/03/2018 6:31 AM EST) Tacrolimus 2.6 ng/mL [facility] Comment: Trough therapeutic: ??5-15 ng/mL Performed by ultra-performance liquid chromatography tandem mass spectrometry (UPLCMS/MS). This test was developed and its performance characteristics determined by [facility]. It has not been cleared [...] In Lab Lela Evans CATRACHITO CHEMISTRY ORDERABLES [facility] [place] [place] [address] * (ABNORMAL) Differential, Automated (06/03/2018 6:31 AM EST) Neutrophil % 70.9 % [facility] Neutrophil Absolute 3.41 1.70 - 6.10 x10(3)/mc L [facility] Lymph % 17.5 % [facility] Lymphocytes Abs 0.8(L) 0.9 - 3.2 x10(3)/mc L [facility] Monocyte % 9.1 % [facility] Monocyte Abs 0.4 0.3 - 0.9 x10(3)/mc L [facility] Eos % 1.9 % [facility] Eosinophils Abs 0.1 0.0 - 0.4 x10(3)/ L [facility] Basophil % 0.2 % [facility] Baso Absolute 0.0 0.0 - 0.1 x10(3)/mc L [facility] Immature Gran % 0.40 % [facility] Comment: Immature granulocytes(IG's)percentage and absolute count will include metamyelocytes, myelocytes, and promyelocytes. Blood smears from CBCs yielding IG's will be scanned manually for concordance. If this scan disagrees with the automated IG or if promyelocytes are noted, a manual differential will be performed. Immature Gran Absolute 0.02 0.00 - 0.04 x10(3)/mc L [facility] Blood specimen (specimen) 06/03/2018 6:31 AM EST 06/03/2018 6:38 AM EST Narrative Resulting Agency Comment Spec In Lab Burak Flores MD HEMATOLOGY ORDERABLE S [facility] [place] [address] * (ABNORMAL) Hemogram (06/03/2018 6:31 AM EST) White Blood Cell 4.8 4.0 - 9.5 x10(3)/mc L [facility] Red Blood Cell 2.60(L) 4.58 - 5.54 x10(6)/mc L [facility] Hemoglobin 7.9(L) 13.7 - 16.5 gm/dL [facility] Hematocrit 24.1(L) 40.5 - 48.5 % [facility] Mean Cell Volume 92.7 82.9 - 93.[address] [facility] Mean Cell Hemoglobin 30.4 27.5 - 32.[address] [facility] Mean Cell Hemoglobin Concentration 32.8 32.0 - 35.7 gm/dL [facility] Platelet 119(L) 145 - 357 x10(3)/mc L [facility] RDW Standard Deviation 49.2(H) 36.0 - 45.[address] [facility] RDW coefficient of variation 14.7(H) 11.4 - 13.8 % [facility] Mean Platelet Volume 8.5 7.6 - 12.[address] [facility] NRBC% auto 0.0 % [facility] NRBC Absolute 0.000 0.000 - 0.000 x10(3)/mc L [facility] Blood specimen (specimen) 06/03/2018 6:31 AM EST 06/03/2018 6:38 AM EST Narrative Resulting Agency Comment Spec In Lab Burak Flores MD HEMATOLOGY ORDERABLE S [facility] [place] [address] * (ABNORMAL) Basic Metabolic Panel (non-fasting) (06/03/2018 6:31 AM EST) Glucose 101 65 - 199 mg/dL [facility] Comment:Diabetes: >=200 mg/d L plus symptoms Blood Urea Nitrogen 57(H) 10 - 20 mg/dL [facility] Creatinine 3.27(H) 0.80 - 1.50 mg/dL [facility] Sodium 140 135 - 145 mmol/L [facility] Potassium 5.1(H) 3.5 - 5.0 mmol/L [facility] Comment: Please note: ??Patients with WBC >100,000 may have falsely elevated Potassium levels. ??For accurate Potassium quantification in these patients send serum separator tube (gold top) for subsequent determinations. ??Contact the Clinical Chemistry Laboratory if there are any questions. Chloride 111(H) 98 - 107 mmol/L [facility] Carbon Dioxide 14(L) 22 - 31 mmol/L [facility] Anion Gap 15 5 - 15 mmol/L [facility] Calcium 7.6(L) 8.5 - 10.5 mg/dL [facility] Est Glomerular Filtration Rate 20(L) >=60 mL/min/1. 73 m?? [facility] Comment: The eGFR was calculated using the CKD-EPI equation. As with all creatinine based estimates of kidney function, eGFR values calculated with the CKD-EPI equation are not accurate in patients with acute kidney failure, extremes of body mass or the acutely ill. [email or web address] eGFR 23(L) >=60 mL/min/1. 73 m?? [facility] Comment: The eGFR was calculated using the CKD-EPI equation. As with all creatinine based estimates of kidney function, eGFR values calculated with the CKD-EPI equation are not accurate in patients with acute kidney failure, extremes of body mass or the acutely ill. [email or web address] Blood specimen (specimen) 06/03/2018 6:31 AM EST 06/03/2018 6:38 AM EST Narrative Resulting Agency Comment Spec In Lab Lela Evans IMPREGNATING MACHINE OPERATOR CHEMISTRY ORDERABLES [facility] [place] [address] * Request For 2nd Read CT Head [...] images without intravenous contrast were obtained at [facility] on 06/02/2018 ??at 1324. COMPARISON: CT [...] spine images without intravenous contrast wereobtained at [facility] on 06/02/2018 at 1324. COMPARISON: CT [...] (Bezet) 446 ms MUSE SYSTEM Calculated P [place] 73 degrees MUSE SYSTEM Calculated R [place] 63 degrees MUSE SYSTEM Calculated T [place] 51 degrees MUSE SYSTEM INTERPRETATION Normal sinus rhythm Normal ECG When compared with ECG of 28-APR-2018 07:17, No significant change was found Confirmed by MD NETTLES ARMIN ([id number]) on 06/02/2018 11:34:50 PM MUSE SYSTEM 06/02/2018 4:57 PM EST 06/02/2018 11:34 PM EST Lawrence Flores MD ECG ORDERABLES MUSE SYSTEM * L-Lactate2 Whole Blood (06/02/2018 4:24 PM EST) [facility] Lactate WB 1.0 0.5 - 2.2 mmol/L [facility] Blood specimen (specimen) 06/02/2018 4:24 PM EST 06/02/2018 4:24 PM EST Lawrence Flores MD CHEMISTRY ORDERABLE S Performing Organization Address [facility]/ZIP Co de Phone Number [facility] [place] [address] * ABORH Recheck Status (06/02/2018 4:18 PM EST) [facility] ABORH Type Recheck Completed [facility] Blood specimen (specimen) 06/02/2018 4:18 PM EST 06/02/2018 4:18 PM EST Narrative Resulting Agency Comment Spec In Lab Lawrence Flores MD BLOOD BANK LAB ORDE RABLES Performing Organization Address [facility]/ZIP Co de Phone Number [facility] [place] [address] * Antibody screen (06/02/2018 4:18 PM EST) [facility] Ab Screen Interp Negative [facility] Expires at [id number] on: 06/05/2018 [facility] Blood specimen (specimen) 06/02/2018 4:18 PM EST 06/02/2018 4:18 PM EST Narrative Resulting Agency Comment Spec In Lab Lawrence Flores MD BLOOD BANK LAB ORDOctaviano CALERO Performing Organization Address [facility]/ZIP Co de Phone Number [facility] [place] [address] * ABO/Rh Typing (06/02/2018 4:18 PM EST) ABORH Type A Pos [facility] Blood specimen (specimen) 06/02/2018 4:18 PM EST 06/02/2018 4:18 PM EST Narrative Resulting Agency Comment Spec In Lab Lawrence Flores MD BLOOD BANK LAB RYAN CALERO Performing Organization Address [facility] Co de Phone Number [facility] [address] * XR Chest AP and Pelvis AP [...] RBC, Urine 8(H) 0 - 3 /HPF [facility] WBC, Urine 1 0 - 3 /HPF [facility] Bacteria, Urine Rare(A) None /HPF [facility] Squamous Epithelial Cells Raw Data, Urine <1 <=4 /HPF [facility] Hyaline Casts, Urine 17(H) 0 - 2 /LPF [facility] Granular Casts, Urine 7(H) <=0 /LPF [facility] Amorphous Crystals, Urine Occasional (A) None /HPF [facility] Urine specimen obtained by clean catch procedure (specimen) 06/02/2018 4:14 PM EST 06/03/2018 1:03 AM EST Narrative Resulting Agency Comment Spec In Lab Lawrence Flores MD URINE ORDERABLES [facility] [place] [address] * (ABNORMAL) Urinalysis with reflex Culture (06/02/2018 [...] [facility] Blood, Urine Dipstick Small(A) Negative mg/dL [facility] Ketone, Urine Dipstick Negative Negative mg/dL [facility] Nitrite, Urine Dipstick Negative Negative [facility] Leukocytes, Urine Dipstick Negative Negative [facility] Appearance, Urine Dipstick Hazy(A) Clear [facility] Specific [place] Urine Automated 1.018 1.002 - 1.030 [facility] Color, Urine Dipstick Yellow Yellow [facility] Reflex to Culture No [facility] Urine specimen obtained by clean catch procedure (specimen) 06/02/2018 4:14 PM EST 06/03/2018 1:02 AM EST Narrative Resulting Agency Comment Spec In Lab Lawrence Flores MD URINE ORDERABLES [facility] [place] [address] * Rapid Drug Screen w/o Confirmation, Urine (06/02/2018 4:13 PM EST) Barbiturates Screen, Urine None Detected None Detected [facility] Comment: The barbiturate screen detects [...] Benzodiazepines Screen, Urine None Detected None Detected [facility] Comment: The benzodiazepines screen detects [...] Cocaine Screen, Urine None Detected None Detected [facility] Comment: The cocaine metabolites screen detects benzoylecgonine (Cocaine Metabolite) at concentrations >150 ng/mL. A ? Presumptive Positive? result indicates that the screening result was positive but has not yet been confirmed by a highly-specific method. As with any screen, occasional false positive results from cross-reacting substances may occur. Not for Medico-Legal Purposes. Methadone Metabolites Screen, Urine None Detected None Detected [facility] Comment: The methadone metabolite screen detects EDDP (major methadone metabolite) at concentrations >100 ng/mL. A ? Presumptive Positive? result indicates that the screening result was positive but has not yet been confirmed by a highly-specific method. As with any screen, occasional false positive results from cross-reacting substances may occur. Not for Medico-Legal Purposes. Opiate Screen, Urine None Detected None Detected [facility] Comment: The opiates screen detects [...] Cannabinoid Screen, Urine None Detected None Detected [facility] Comment: The marijuana metabolites screen detects the THC metabolite (60-kzx-1-carboxy-delta 9-THC) at concentrations >20 ng/mL. A ? Presumptive Positive? result indicates that the screening result was positive but has not yet been confirmed by a highly-specific method. As with any screen, occasional false positive results from cross-reacting substances may occur. Not for Medico-Legal Purposes. Oxycodone Screen, Urine None Detected None Detected [facility] Comment: The oxycodone screen detects oxycodone and oxymorphone at concentrations >100 ng/mL. A ? Presumptive Positive? result indicates that the screening result was positive but has not yet been confirmed by a highly-specific method. As with any screen, occasional false positive results from cross-reacting substances may occur. Not for Medico-Legal Purposes. Buprenorphine Screen, Urine None Detected None Detected [facility] Comment: The buprenorphine screen detects buprenorphine at concentrations >5 ng/mL. A ? Presumptive Positive? result indicates that the screening result was positive but has not yet been confirmed by a highly-specific method. As with any screen, occasional false positive results from cross-reacting substances may occur. Not for Medico-Legal Purposes. Fentanyl Screen, Urine None Detected None Detected [facility] Comment: The fentanyl screen detects fentanyl at concentrations >2 ng/mL. A ? Presumptive Positive? result indicates that the screening result was positive but has not yet been confirmed by a highly-specific method. As with any screen, occasional false positive results from cross-reacting substances may occur. Not for Medico-Legal Purposes. Tricyclics Screen, Urine None Detected None Detected [facility] Comment: The tricyclics screen detects [...] Ethanol Screen, Urine None Detected None Detected [facility] Comment:This urine ethanol a ssay detects ethanol at concentrations >/= 100 mg/L. Amphetamines Screen, Urine None Detected None Detected [facility] Comment: The amphetamine screen detects d-amphetamine and d-methamphetamine at concentrations >300 ng/mL. A ? Presumptive Positive? result indicates that the screening result was positive but has not yet been confirmed by a highly-specific method. As with any screen, occasional false positive results from cross-reacting substances may occur. Not for Medico-Legal Purposes. Adulterants Screen, Urine None Detected None Detected [facility] Comment: No adulteration or dilution [...] MD CHEMISTRY ORDERABLE S Performing Organization Address [facility] Co de Phone Number [facility] [place] [address] * Rapid Drug Screen, Urine (RAUL Request) (06/02/2018 4:13 PM EST) RAUL Conf Requested No [facility] RAUL Requested See Comment [facility] Comment:Refer to Rapid Drug Screen w/o Confirmation, Urine for results. Urine specimen (specimen) 06/02/2018 4:13 PM EST 06/03/2018 1:02 AM EST Narrative Resulting Agency Comment Spec In Lab Lawrence Flores MD URINE ORDERABLES Performing Organization Address [facility] Co de Phone Number [facility] [place] [address] * (ABNORMAL) Troponin (06/02/2018 4:12 PM EST) Troponin-T 0.02(H) 0.00 - 0.00 ng/mL [facility] Comment: Called by: JATINDER, Read back by: Mai Mejía, Date/Time:06/02/18 17:48. The 99th percentile for Troponin T is less than 0.01 ng/mL, any detectable cTnT concentration using this assay should be considered elevated. According to the third universal definition of myocardial infarction the following criteria with a clinical presentation consistent with acute myocardial ischemia meets the diagnosis for a myocardial infarction ([place]). Detection of a rise and/or fall of cTnT, with at least one value greater than the 99th percentile (> or = 0.01) and with at least one of the following ?? Symptoms of ischemia ?? New or presumed new significant [id number]-[id number] wave (ST-T) changes or new left bundle [...] additional sample may be indicated. Reference: Third [place] Definition of Myocardial Infarction. Journal of the [place] [employer] 2012;60:1581-98 Blood specimen (specimen) Venous Draw / Unknown 06/02/2018 4:12 PM EST 06/02/2018 4:18 PM EST Narrative Resulting Agency Comment Spec In Lab Burak Flores MD CHEMISTRY ORDERABLES Performing Organization Address [facility]/ZIP Co de Phone Number [facility] [place] [address] * Gold Tube HOLD (06/02/2018 4:12 PM EST) Pathologist [facility] Gold Hold Sample in lab. [facility] Blood specimen (specimen) Venous Draw / Unknown 06/02/2018 4:12 PM EST 06/02/2018 4:19 PM EST Lawrence Flores MD CHEMISTRY ORDERABLE S Performing Organization Address [facility]/ZIP Co de Phone Number [facility] [place] [address] * (ABNORMAL) Differential, Automated (06/02/2018 4:12 PM EST) Neutrophil % 82.9 % [facility] Neutrophil Absolute 5.08 1.70 - 6.10 x10(3)/mc L [facility] Lymph % 9.5 % [facility] Lymphocytes Abs 0.6(L) 0.9 - 3.2 x10(3)/[facility] Monocyte % 6.4 % [facility] Monocyte Abs 0.4 0.3 - 0.9 x10(3)/[facility] Eos % 0.5 % [facility] Eosinophils Abs 0.0 0.0 - 0.4 x10(3)/[facility] Basophil % 0.2 % [facility] Baso Absolute 0.0 0.0 - 0.1 x10(3)/[facility] Immature Gran % 0.50 % [facility] Comment: Immature granulocytes(IG's)percentage and absolute count will include metamyelocytes, myelocytes, and promyelocytes. Blood smears from CBCs yielding IG's will be scanned manually for concordance. If this scan disagrees with the automated IG or if promyelocytes are noted, a manual differential will be performed. Immature Gran Absolute 0.03 0.00 - 0.04 x10(3)/[facility] Blood specimen (specimen) 06/02/2018 4:12 PM EST 06/02/2018 4:18 PM EST Narrative Resulting Agency Comment Spec In Lab Lawrence Flores MD HEMATOLOGY ORDERABL ES [facility] [place] [address] * (ABNORMAL) Hemogram (06/02/2018 4:12 PM EST) White Blood Cell 6.1 4.0 - 9.5 x10(3)/[facility] Red Blood Cell 2.77(L) 4.58 - 5.54 x10(6)/[facility] Hemoglobin 8.6(L) 13.7 - 16.5 gm/dL [facility] Hematocrit 26.1(L) 40.5 - 48.5 % [facility] Mean Cell Volume 94.2(H) 82.9 - 93.[address] [facility] Mean Cell Hemoglobin 31.0 27.5 - 32.[address] [facility] Mean Cell Hemoglobin Concentration 33.0 32.0 - 35.7 gm/dL [facility] Platelet 131(L) 145 - 357 x10(3)/mc L [facility] RDW Standard Deviation 51.0(H) 36.0 - 45.[address] [facility] RDW coefficient of variation 14.6(H) 11.4 - 13.8 % [facility] Mean Platelet Volume 8.4 7.6 - 12.9 [facility] NRBC% auto 0.0 % [facility] NRBC Absolute 0.000 0.000 - 0.000 x10(3)/mc L [facility] Blood specimen (specimen) 06/02/2018 4:12 PM EST 06/02/2018 4:18 PM EST Narrative Resulting Agency Comment Spec In Lab Lawrence Flores MD HEMATOLOGY ORDERABL ES [facility] [place] [address] * Ethanol Level (06/02/2018 4:12 PM EST) Ethanol <100 <=99 mg/L [facility] [...] MD CHEMISTRY ORDERABLE S Performing Organization Address [facility] Co de Phone Number [facility] [place] [address] * APTT (06/02/2018 4:12 PM EST) Partial Thromboplastin Time 27 25 - [address] [facility] Comment: The PTT is NOT appropriate for heparin monitoring. Use the Anti-Xa level for heparin monitoring (HEP UFH) or LMWH monitoring (HEP LMW). A PTT less than 37 seconds generally indicates adequate hemostasis. Blood specimen (specimen) 06/02/2018 4:12 PM EST 06/02/2018 4:18 PM EST Narrative Resulting Agency Comment Spec In Lab Lawrence Flores MD HEMATOLOGY ORDERABL ES Performing Organization Address [facility] Co de Phone Number [facility] [place] [address] * Prothrombin Time (06/02/2018 4:12 PM EST) Prothrombin Time 10.9 9.4 - 12.[address] [facility] International Normalization Ratio 1.0 [facility] Comment: An INR <2.0 indicates [...] MD HEMATOLOGY ORDERABL ES Performing Organization Address [facility] Co de Phone Number [facility] [place] [address] * (ABNORMAL) Basic Metabolic Panel (non-fasting) (06/02/2018 4:12 PM EST) Glucose 117 65 - 199 mg/dL [facility] Comment:Diabetes: >=200 mg/d L plus symptoms Blood Urea Nitrogen 59(H) 10 - 20 mg/dL [facility] Creatinine 3.11(H) 0.80 - 1.50 mg/dL [facility] Sodium 141 135 - 145 mmol/L [facility] Potassium 5.5(H) 3.5 - 5.0 mmol/L [facility] Comment: Please note: ??Patients with WBC >100,000 may have falsely elevated Potassium levels. ??For accurate Potassium quantification in these patients send serum separator tube (gold top) for subsequent determinations. ??Contact the Clinical Chemistry Laboratory if there are any questions. Chloride 108(H) 98 - 107 mmol/L [facility] Carbon Dioxide 15(L) 22 - 31 mmol/L [facility] Anion Gap 18(H) 5 - 15 mmol/L [facility] Calcium 8.0(L) 8.5 - 10.5 mg/dL [facility] Est Glomerular Filtration Rate 21(L) >=60 mL/min/1. 73 m?? [facility] Comment: The eGFR was calculated using the CKD-EPI equation. As with all creatinine based estimates of kidney function, eGFR values calculated with the CKD-EPI equation are not accurate in patients with acute kidney failure, extremes of body mass or the acutely ill. [email or web address] [email or web address] eGFR 25(L) >=60 mL/min/1. 73 m?? [facility] Comment: The eGFR was calculated using the CKD-EPI equation. As with all creatinine based estimates of kidney function, eGFR values calculated with the CKD-EPI equation are not accurate in patients with acute kidney failure, extremes of body mass or the acutely ill. [email or web address] Blood specimen (specimen) 06/02/2018 4:12 PM EST 06/02/2018 4:18 PM EST Narrative Resulting Agency Comment Spec In Lab Lawrence Flores MD CHEMISTRY ORDERABLE S [facility] [address] [place] [place] [address] documented in this encounter Visit Diagnoses Diagnosis [...] 2000, Until Discontinued 2048 (Given - Provider: Nayeli García RN) 0201 (Given - Provider: Nayeli [...] Erika Vivas RN)2058 (Given - Provider: Cally Matthew, SAVANNA) 1002 (Given - Provider: Janki Saab, [...] Routine documented in this encounter Care Teams Classification Analyst Relationship Specialty Start Date End Date Sebastian Garcia DO [address] [facility] [place] [address] PCP - General 09/23/11 10/20/22 documented as of this encounter
--- OUTSIDE RECORDS SUMMARY | 2024-05-23 13:19 | XMS_ITS | Encounter Summary ---
Author Organization [facility] Address [facility] [place] [address] Care Team Providers Care Booth Supervisor Name Role Phone AlfredoCarroll allison Primary Care Provider [phone] Reason for Visit * Consultation (Routine) - Closed Specialty Diagnoses / Procedures Referred By Shashi ko Referred To Contact Infectious Diseases Diagnoses Wound infection Mycotic aneurysm Kurt Medina MD [facility] [place] [address] Kurt Medina MD [facility] [place] [address] Referral ID Status Reason Start Date Expiration Date V isits Requested Visits Authorized [id number] Closed Assume Subset of Care 04/27/2018 04/27/2019 1 1 Encounter Details Date Type Department Care Team (Late st Contact Info) Description 05/17/2018 11:30 AM EST Office Visit [place] [address] Kurt Medina MD [facility] [place]FECTI[place] [address] Surgical wound infection; Encounter for long-term (current) [...] with me to decide on further antibiotics. 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 Recommendations: - [...] transplant documented in this encounter Care Teams Booth Supervisor Relationship Specialty Start Date End Date Carroll Fuentes DO [address] [place] [address] PCP - General 09/23/11 10/20/22 documented as of this encounter
--- OUTSIDE RECORDS SUMMARY | 2024-05-23 13:19 | XMS_ITS | Encounter Summary ---
Author Organization [facility] Address [facility] [place] [address] Care Team Providers Care Preschool Education Director Name Role Phone AlfredoCarroll geiger Primary Care Provider Reason for Visit * Auth/Cert Specialty Diagnoses / Procedures Referred By Shashi ko Referred To Contact Diagnoses Subarachnoid hemorrhage IgA nephropathy Subarachnoid hemorrhage Procedures EMERGENCY IPI Referral ID Status Reason Start Date Expiration Date Visits Re quested Visits Authorized [id number] 1 1 Encounter Details Date Type Department Care Team (Latest Contact Info) Description 06/02/2018 5:10 PM EST - 06/02/2018 11:59 PM EST Hospital Encounter Radiology Library at [facility] [place] [address] Discharge Disposition: Home Social History Tobacco Use [...] images without intravenous contrast were obtained at [facility] on 06/02/2018 ??at 1324. COMPARISON: CT [...] spine images without intravenous contrast wereobtained at [facility] on 06/02/2018 at 1324. COMPARISON: CT [...] on filedocumented in this encounter Care Teams Preschool Education Director Relationship Specialty Start Date End Date Carroll Fuentes DO [address] [place] [address] PCP - General 09/23/11 10/20/22 documented as of this encounter
--- OUTSIDE RECORDS SUMMARY | 2024-05-23 13:19 | XMS_ITS | Encounter Summary ---
Author Organization [facility] Address [facility] [place] [address] Care Team Providers Care Esthetician/Spa Coordinator Name Role Phone AlfredoCarroll allison Primary Care Provider [phone] Encounter Details Date Type Department Care Team (Late st Contact Info) Description 05/17/2018 12:30 PM EST Office Visit [place] [address] Nilda Minaya, CRITICAL CARE SPECIALIST [facility] [address] CKD (chronic kidney disease) stage 4, GFR [...] on living arrangements following Dino's dc from [facility] est. 05/27/2018. They are hopeful to find [...] organs documented in this encounter Care Teams Esthetician/Spa Coordinator Relationship Specialty Start Date End Date Carroll Fuentes DO [address] [place] [address] PCP - General 09/23/11 10/20/22 documented as of this encounter
--- OUTSIDE RECORDS SUMMARY | 2024-05-23 13:21 | XMS_ITS | Encounter Summary ---
Author Organization [facility] Address [facility] Laura jen [place] [id number] Care Team Providers Care Propeller Driven Airplane Mechanic Name Role Phone Carroll Garcia Primary Care Provider [phone] Reason for Referral * Consultation (Routine) - Closed Specialty Diagnoses / Procedures Referred By Contac t Referred To Contact Infectious Diseases Diagnoses Wound infection Mycotic aneurysm Kurt Medina MD [facility] [place] [address] Kurt Medina MD [facility] [place] [address] Referral ID Status Reason Start Date Expiration Date V isits Requested Visits Authorized [id number] Closed Assume Subset of Care 04/27/2018 04/27/2019 [...] Expiration Date Visits Re quested Visits Authorized [id number] 1 1 Encounter Details Date Type Department Care Team (Latest Contact Info) Description 04/06/2018 12:58 PM EDT - 05/04/2018 1:15 PM EDT Hospital Encounter [address] [place] [address] Erwin Hernandez MD [facility] [place] [address] Lida Peter MD [facility] [place] [address] Chase Olvera MD [facility] [place] [address] Hypertension, unspecified type; Cerebral infarction, unspecified mechanism; Cerebrovascular accident (CVA) due to embolism of precerebral artery; End stage renal disease; Hemorrhagic shock; Wound infection; Mycotic aneurysm; Chest pain, unspecified type; H/O kidney transplant Discharge Disposition: Half-Way Facility Social History Tobacco Use Types Packs/Day [...] GFR 15-29 ml/min ??? 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 H/O [...] epilepsy, and prior TBI who presents to [facility] s/p LUE bleeding with PEA arrest. Description [...] Pt intubated in field. Pt taken to [facility], where second tourniquet applied and pt received 6U PRBC. Transferred to [facility] for further care. Of note, per Dr. [...] Studies: none Discharge Conditions/Prognosis: Good [facility] [address] [place] [id number] Discharge Medications: Your Medications New Medications Dose [...] draw weekly CBC/CMP with results sent to [facility] Infectious disease. See wound care instructions below. [...] For any problems or questions please call [phone] JAGJIT FallonN, chipper Nurse Clinician For issues on weeknights after 5pm and weekends please call [phone] and ask for the Vascular Fellow buttonhole machine operator. General Instructions Plastic Surgery Wound Care Instructions [...] about scheduling, please contact our administrative officesat [phone] For clinical questions, please call our nurses at [phone] Both offices are open Wednesday thru Wednesday 8a - 5p. With emergencies after hours, call the hospital folder taper operator at [phone] and ask for the Plastic Surgery Resident buttonhole machine operator. Future Appointments and Orders Future Appointments and Orders Future Appointments Provider Department Dept Phone 05/17/2018 10:20 AM Laina Disla APRN Plastic Surgery at [place] Arrive at: Ethnographic Materials Conservator Area 4M [phone] 05/17/2018 11:30 AM Kurt Medina MD Infectious Disease at [place] Arrive at: [employer] Conservator Area [phone] 05/17/2018 12:30 PM Nilda Minaya RN Vascular Surgery at [place] Arrive at: [employer] Conservator Area 3V [phone] 05/27/2018 10:15 AM Lida Peter MD Vascular Surgery at [place] Arrive at: [employer] [facility] Area 08/18/2018 10:30 AM Chanel Smith MD Dermatology at [facility] [address] [phone] Future Orders Complete By Expires OPAT: Order / Recommendation for Post Discharge IV Antibiotic Management [[id number] CPT(R)] As directed Process Instructions: If no progress note charted, please enter Clinical details in comments. Scheduling Instructions: Comments: Please Fax all results to: OPAT Program Infectious Disease Section [facility], [place] [address] FAX: Line care instructions per [facility] OPAT Program protocol. After hours, please contact the Infectious Disease Physician buttonhole machine operator at . If this order was signed greater than 72 hours prior to [facility] discharge, please call to confirm the accuracy [...] about scheduling, please contact our administrative officesat [phone] For clinical questions, please call our nurses at [phone] Both offices are open Wednesday thru Wednesday 8a - 5p. With emergencies after hours, call the hospital folder taper operator at [phone] and ask for the Plastic Surgery Resident buttonhole machine operator. * Patient Instructions* Nilda Minaya RN - [...] For any problems or questions please call [phone] YEIMY Fallon, chipper Nurse Clinician For issues on weeknights after 5pm and weekends please call [phone] and ask for the Vascular Fellow buttonhole machine operator. documented in this encounter Medications at [...] AM EDT Pt accepted bed offer at [facility] for transfer today. Pt qualifies for ambulance transfer due to being on bed alarm while here, being impulsive and history of TBI. Pt will be transferred at Noon via [facility]. I called pt brother Lucas to inform. He was with JANICE Guzman from [place] [facility]. Our SW ChellyBenitoRobe spoke with Lucas as well about continuing the LT Medicaid application process. Nurse to Nurse report number given to pt's staff nurse Danny. Discharge envelope started; still needed discharge summary, medication sheets and prescription added. Please call CM if needed for further pt discharge needs. Padmini Ruiz RN [phone] * Reynaldo Jade - 05/04/2018 8:58 AM EDT Office of Care Management/Embroiderer Patient Name: Christy Ambrose : 1960 Patient has been offered a SNF bed at [facility] for today, 05/04/18 [facility] arranged for a 12:00 pm transport. Ambulance will need: Medicare ambulance form completed and signed (MD or Production Clerks Supervisor RN/CUSTOMER SERVICE DRIVER) Copy of patient demographics [place] [facility] DNR/DNI order, if active No MD to MD report necessary Please call Nursing Report to [phone], ask for athletic coach. Info to accompany patient: Narcotic Prescriptions Copies of Medication Administration Records and IV sheets for past 10 days. Plan: Embroiderer will be available to the patient and Production Clerks Supervisor-RN and/or Social Workerfor further assistance. Patient will be discharged to: [address] [id number] Reynaldo Jade, Embroiderer * Chasidy Monahan PA - 05/04/2018 7:47 [...] AM Laina Disla APRN [facility] 4[facility] 05/17/2018 11:30 AM Kurt Medina MD Le[facility] 5C [facility] 05/17/2018 12:30 PM Nilda Minaya RN [facility] 08/18/2018 10:30 AM Chanel Smith MD [facility] PANCHITO Rios Pager: [phone] * Nayeli Wilde RN - 05/03/2018 8:29 PM EDT Images from the original note were not included. PRN dressing change Dressing prior to change Dressing after change * Natalya Wan MSW - 05/03/2018 5:01 PM EDT CUSTOMER SERVICE DRIVER and DONAVAN Chaidez met with Christy, his mother Ilda (HDPOA), and his brother Lucas (HDPOA and FPOA). All three parties [facility] and hope thatif a bed becomes available at [facility] Christy can be transferred. Family to continue tocomplete [place] Choices for Care and work on bed bug exterminator supportive living with [facility] when mother goes to assisted living. * Nicole Hamilton LD - 05/03/2018 2:04 PM EDT Nutrition Progress Note Christy Ginna Ambrose is a 57 y.o. male Reason for intervention: Follow up Nutrition Recommendations: Could liberalize diet to [facility]/Cardiac Continue to monitor potassium trends Monitor weight [...] ml/min N18.4 ??? 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 [...] encounter: 84.3 kg (185 lb 13.6 oz). Pitkin Body Weight (IBW): Pitkin body weight: 73.2 kg (161 lb 5.4 [...] intakes. Potassiumnormal, could consider liberalizing diet to [facility]. Patient denies any questions/concerns rega rding current [...] by primary team Javier Nolan MD Pager: [phone] * Tristin Marrero MD - 05/03/2018 7:40 [...] ongoing. Angelina Marrero Vascular Surgery, PGY3 Pager #[phone] * Tristin Marrero MD - 05/02/2018 12:35 [...] recommendations. Angelina Marrero Vascular Surgery, PGY3 Pager #[phone] * Chasidy Monahan PA - 05/02/2018 9:16 [...] team PANCHITO Rios Plastic Surgery Team Pager: [phone] * Natalya Jacobsen MD - 05/01/2018 9:15 [...] Aditi Mccollum MD Plastic Surgery Resident P# [phone] * Natalya Jacobsen MD - 04/30/2018 9:23 [...] Aditi Mccollum MD Plastic Surgery Resident P# [phone] * Natalya Jacobsen MD - 04/29/2018 2:00 [...] Wan MSW - 04/29/2018 11:21 AM EDT CUSTOMER SERVICE DRIVER spoke with patients mother and [facility] [place] [facility] CUSTOMER SERVICE DRIVER who are following up today by completingChoices for Care application. Mother told CUSTOMER SERVICE DRIVER patient was fully independent until this event. [...] AM NURSE, PLASTIC SURGERY [facility] 05/02/2018 12:30 PM Natalya Ojeda MD [facility] 08/18/2018 10:30 AM Chanel Smith MD [facility] Camilo Bauman MD Plastic surgery team pager: [phone] 04/29/2018 6:48 AM * Kumar Schilling - 04/28/2018 2:37 PM EDT Narrative: Visited to introduce and assess acceptance of Cue Selector services. Pt was awake, alert, oriented and [...] Provided emotional, spiritua support and encouraging presence. Cue Selector services accepted.Conversation to build trusting relationship.Provided pastoral [...] AM NURSE, PLASTIC SURGERY [facility] 05/02/2018 12:30 PM Natalya Ojeda MD [facility] 08/18/2018 10:30 AM Chanel Smith MD [facility] PANCHITO Rios Plastic surgery team pager: [phone] 04/28/2018 8:12 AM Attending: Plan discussed and [...] Danielle Peoples, DO Infectious Disease Fellow Pager [phone] Associated attestation - Kurt Medina MD - [...] team PANCHITO Rios Plastic surgery team pager: [phone] 04/27/2018 8:46 AM Attending: Plan discussed and [...] stable - UOP adequate Thelma Solitario Pager: [phone] 04/27/18 * Domi Norman RN - 04/26/2018 3:57 PM EDT Pt. Arrived back on the unit around 1300 from the OR. AAOx4. VSS. Afebrile. Pt denies nausea. Pain well controlled with PRN Oxycodone and scheduled meds. Incisions CDI. Wound vac in place. Will continue to monitor. Domi Nomran RN * Tana Bennett LD - 04/26/2018 2:32 PM EDT Nutrition Services Follow-up Note Recommendation/Plan: Diet at MD discretion, consider [facility] diet with K restriction May liberalize to [facility] if K is WNL Appreciate updated weights [...] / appropriate for Occupational Therapy Services. Pager [phone] NICKY Irizarry/John Occupational Therapy Rehabilitation Department * [...] team PANCHITO Rios Plastic surgery team pager: [phone] 04/26/2018 8:01 AM Attending: Pt seen and [...] Danielle Peoples DO Infectious Disease Fellow Pager [phone] Associated attestation - Kurt Medina MD - [...] for skin grafting (04/26) - NPO at [facility] - Obtain consent or OR tomorrow - no need to hold [facility] PANCHITO Rios Plastic surgery team pager: [phone] 04/25/2018 1:10 PM Attending: Plan discussed and [...] 27 27 27 Microbiology ?? Tissue culture [[id number]] (Abnormal) Collected: 04/19/18924 ? Lab Status: Preliminary [...] - skin grafting Wednesday - NPO at [place] Wednesday night - no need to hold [facility] Camden Sol MD Plastic Surgery, [...] 27 27 27 Microbiology ?? Tissue culture [[id number]] (Abnormal) Collected: 04/19/18924 ? Lab Status: Preliminary [...] O: Telephone call received from Rachna Muro ([place] [facility]) who reports that patient's Mother is already assigned to worker Lalitha. Rachna suggested I call Mother and remind her that she has made contact with the agency. Rachna cannot release any information to [facility] without a signed release. Tray Service Worker attempted to call Mother today, no answer, [...] PTT 27 27 27 Microbiology Tissue culture [[id number]] (Abnormal) Collected: 04/19/18924 ? Lab Status: Preliminary [...] had just returned from ambulating unit3x w/ cleaning staff supervisor. RN reports pt is supervision while ambulating to/from bathroom and requires min A for hygiene thoroughness. Pt deferred OT until tomorrow; pt education provided re: importance of frequent functional mobility and participation w/ ADL tasks. Will follow up as available / appropriate for Occupational Therapy Services. Pager [phone] NICKY Irizarry/John Occupational Therapy Rehabilitation Department * [...] PTT 27 27 27 Microbiology Tissue culture [[id number]] (Abnormal) Collected: 04/19/18924 ? Lab Status: Preliminary [...] continue current immunosuppression regimen. Appreciate input. [facility] Vascular Surgery * Kelsey Tyler, RD [...] ml/min N18.4 ??? 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 [...] encounter: 86.2 kg (190 lb 0.6 oz). Pitkin Body Weight (IBW): Pitkin body weight: 73.2 kg (161 lb 5.4 [...] was unable to connect with her local [place] [facility]. Unfortunately I believe that Ilda may be overwhelmed by patient's admission and events leading up to hospitalization. Ilda reports that there are repairs that need to be completed in the family home and that a staff member at [facility] (she cannot identify) has told her that patient can not return home. I offered support to Ilda and suggested that I would contact the [place] [facility] and ask them to outreach to her. She was appreciative. Telephone call to Rachna Muro ([facility] [place] [facility] [phone]), voice mail message relaying above information. P: Await call back from Rachna, continue to liaison with Mother and offer support around discharge planning. 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 to [facility] on 04/06/18 for hemorrhagic shock status post [...] -2.3 -2.6 .He also had laparoscopic left united keetoowah nephrectomy due to papillary renal cell ca [...] chronic kidney disease. -No acute indication for OVEN LABORER ,,Strict intake and out put monitoring,Daily weights,Renal [...] PTT 27 27 27 Microbiology Tissue culture [[id number]] (Abnormal) Collected: 04/19/18924 ? Lab Status: Preliminary [...] of HTN and immunosuppressant regimen. Angelina Devries [place] Vascular Surgery, PGY3 Pager #[phone] * Karuna Nagel, RN - 04/19/2018 10:28 [...] today. Angelina Marrero Vascular Surgery, PGY3 Pager #[phone] * Selma Fontanez PTA - 04/18/2018 2:14 PM EDT Physical Therapy Note Patient having bedside vac change with pain meds. Will follow up with patient tomorrow. Selma Fontanez PTA Pager# [phone] * Tristin Marrero MD - 04/18/2018 12:22 [...] kidney disease. - No acute indication for OVEN LABORER, Strict intake and out put monitoring, Daily [...] kidney disease. - No acute indication for OVEN LABORER, Strict intake and out put monitoring, Daily [...] by Miguel Angel Moreno MD at [facility] OR ??? PRO DECOMPRESS FOREARM, BRACH ART EXPLOR Left 04/06/2018 FASCIOTOMY, FOREARM, WITH BRACHIAL ARTERY EXPLORATION (WRVU 8.41) performed by Lida Peter MDat [facility] OR ??? PRO DIRECT REPAIR RUPTURED ANEURYSM, AXILLO-BRACHIAL ARM INCIS Left 04/06/2018 @REPAIR, RUPTURED AXILLARY OR BRACHIAL ARTERY ANEURYSM BY ARM INCISION (WRVU *) performed by Lida Peter MD at [facility] OR ??? PRO EXC PAROTD, TOTAL, UNILAT RAD NECK Left 02/05/2016 @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, TOTAL, WITH UNILATERAL RADICAL NECK DISSECTION performed by Miguel Angel Moreno MD at [facility] OR ??? PRO EXC SKIN MALIG 3.1-4CM FACE, FACIAL Left 02/05/2016 EXC MALIGNANT LESION, 3.1 TO 4.0CM, FACE performed by Miguel Angel Moreno MD at [facility] OR ? ? PRO EXC SKIN MALIG >4CM TRUNK, ARM, LEG 04/19/2012 EXC MALIGNANT LESION, MICHAEL > 4.0CM, TRUNK performed by SABRINA MEDRANO at [facility] MAIN OR ??? PRO LAP, RADICAL NEPHRECTOMY Left 05/31/2017 @LAPAROSCOPY, RADICAL NEPHRECTOMY (WRVU 25.06) performed by Jax Mills MD at [facility] MAIN OR ??? PRO REBL VES GRAFT, UP EXTREM Left 04/06/2018 REPAIR BLOOD VESSEL WITH GRAFT OTHER THAN VEIN, UPPER EXTREMITY (WRVU 15.83) performed by Lida Peter MD at [facility] MAIN OR ??? PRO RELIEVE PRESSURE ON NERVE(S) Left 04/06/2018 (MSURG) CARPAL TUNNEL (WRVU 4.82) performed by Hay Sparks MD at [facility] MAIN OR ??? PRO REPAIR INTERMEDIATE S/A/T/E 2.6-7.5 CM 04/19/2012 REPAIR INTERMEDIATE WOUND, (NO HANDS OR FEET) 2.6 TO 7.5CM, UPPER EXTREMITY performed by SABRINA MEDRANO at [facility] MAIN OR ? ? PRO REPAIR INTERMEDIATE S/A/T/E > 30.0 CM Left 04/14/2018 REPAIR INTERMEDIATE WOUND, (NO HANDS OR FEET) >30.0CM, UPPER EXTREMITY (WRVU 5) performed by Yimi Easton MD at [facility] MAIN OR ??? PRO REVISE MEDIAN N/CARPAL TUNNEL SURG Left 04/06/2018 MEDIAN NERVE DECOMPRESSION (CARPAL TUNNEL RELEASE) (WRVU 4.97) performed by Lida Peter MD [facility] MAIN OR ? ? PRO SPLIT GRFT, HEAD, FAC, HAND, FEET <100SQCM N/A 02/20/2016 SPLIT THICKNESS SKIN SPLIT GRAFT,100SQ CM OR LESS, NECK performed by Miguel Angel Moreno MD at [facility] MAIN OR ??? PRO UPPER GI ENDOSCOPY, BIOPSY N/A 05/13/2017 EGD WITH BIOPSY (WRVU 2.49) performed by Aditya Barrera MD at [facility] ENDOSCOPY ??? PRO VASCULAR SURGERY PROCEDURE UNLIST Left 11/20/2015 LIGATION\REPAIR AV FISTULA performed by Camilo Ireland MD at [facility] MAIN OR ??? PRO VASCULAR SURGERY PROCEDURE UNLIST Left 11/20/2015 EXCISION VEIN FROM HAND performed by Camilo Ireland MD at [facility] MAIN OR ??? US RENAL TRANSPLANT BIOPSY 12/31/2010 Reason for Nutrition Intervention: Initial assessment Diet Order: Regular Appetite: Good Food allergies: None documented Chewing/Swallowing difficulty: none, cleared for regular diet and thin liquids per CORPORATE EVENTS DIRECTOR Estimated body mass index is 28.91 kg/(m^2) [...] being worked up for possible intracranial event. CORPORATE EVENTS DIRECTOR cleared patient for regular diet and thin liquids. Patient has been tolerating this well, but per RN this morning he did not eat d/t nausea. Thiscould be attributed to pain meds on empty stomach. CORPORATE EVENTS DIRECTOR and OT in with patient at time of attempt this morning, will check back in afternoon. Patient seen this afternoon having eaten ~50% of his lunch, appeared to still be eating as well. 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 He is not sure if he has [...] kidney disease. - No acute indication for OVEN LABORER, Strict intake and out put monitoring, Daily [...] kidney disease. - No acute indication for OVEN LABORER, Strict intake and out put monitoring, Daily [...] to communicate with Mother re discharge planning. Tray Service Worker spoke with Mother today who is glad to hear that patient is progressing. Mother has an appointment on 04/15/18 with the [place] [facility] to discuss [place] LTC. She also had questions about filing for SSDI for patient. Tray Service Worker suggested that she contact with [place] officeand make an appointment to speak with someone there. Tray Service Worker also indicated that Mother should take along supportive friend as there can be a lot of information to digest and understand. A: Mother remains pleasant and actively engaged in treatment planning for patient. She is hopeful that he will be able to complete his rehab stay at [facility] but understands that he may need to go farther from home. P: Will continue to follow with team, liaison with Mother. Available to assist as needed/requested. 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 to [facility] on 04/06/18 for hemorrhagic shock status post [...] -2.3 -2.6 .He also had laparoscopic left united keetoowah nephrectomy due to papillary renal cell ca [...] chronic kidney disease. -No acute indication for OVEN LABORER ,,Strict intake and out put monitoring,Daily weights,Renal [...] kidney disease. - No acute indication for OVEN LABORER, Strict intake and out put monitoring, Daily weights, Renal dosing for medications - Hypertension: was on hydralazine 50 mg BID,diltiazem 120 mg XT daily ,metorpolol 50 mg TID,losartan 25 mg daily at home.Will recommend to restart his home meds and continue holding losartan in the setting of TRISTIAN. Tim Ogden MD * Ajay Alexandre - 04/12/2018 2:08 PM EDT Cue Selector Encounter Note Patient Name: Christy Ambrose : [id number] MR#: [id number] Admit Date: 04/06/2018 12:58 PM Hospital Day 6 days Narrative: Seen on reconcilement clerk Rounds. Sitting in recliner. Cordial. Expression bemused, [...] 112 CALCIUM 7.4* 7.3* 7.9* ASSESSMENT: Christy Ginna Arnol is a 57 y.o. [...] chronic kidney disease. -No acute indication for OVEN LABORER, Strict intake and out put monitoring, Daily weights, Renal dosing formedications - Hypertension: was on hydralazine 50 mg BID,diltiazem 120 mg XT daily ,metorpolol 50 mg TID,losartan 25 mg daily at home.Will recommend to restart his home meds and continue holding losartan in the setting of TRISTIAN. 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 to [facility] on 04/06/18 for hemorrhagic shock status post [...] -2.3 -2.6 .He also had laparoscopic left united keetoowah nephrectomy due to papillary renal cell ca [...] chronic kidney disease. -No acute indication for OVEN LABORER ,,Strict intake and out put monitoring,Daily weights,Renal [...] Ambrose Date of : 1960 PCP: Carroll aGrcia DO ID: Christy Ambrose is a 57 [...] 04/11/2018 Neurology resident, PGY-3 Vascular Neurology Pager [phone] Associated attestation - Tim Collins MD - [...] cook, clean independently. 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 pt usually ambulates [...] Assessment/Treatment Assistive Device (Bed Mobility) bed rails [place] (Bed Mobility) minimum assist (75% patient effort) Comment (Bed Mobility) HOB elevated Transfer Assessment/Treatment [place] (Sit-Stand Transfers) moderate assist (50% patient effort);verbal cues required;2 person assist required [place] (Stand-Sit Transfers) moderate assist (50% patient effort);verbal cues required;2 person assist required Iyy-Vgiwh-Wyn Assistive Device (Transfers) rolling walker (initially transfered mod x2 w/o AD, poor balance) Safety Issues (Transfers) loses balance backward (lost balance forward initially) Impairments (Transfers) balance impaired;strength decreased;pain Comment (Transfers) cues for hand placement on RW Gait Assessment/Treatment Cab[place]us (Gait) moderate assist (50% patient effort);verbal cues [...] good balance Sitting Balance: Dynamic fair balance Mic-dy-Aqtci Balance poor balance Standing Balance: Static poor [...] to sit/sit to sidelying Bed Mobility Goal, Cabarrus Level independent Gait Training Goal Gait Training Goal, Date Established 04/11/18 Gait Training Goal, Time to Achieve 2 wks Gait Training Goal, Cab[place]us Level independent Gait Training Goal, Assist Device other (see comments) (LRD ) Gait Training Goal, Distance to Achieve 150 ft Transfer Training Goal Transfer Training Goal, Date Established 04/11/18 Transfer Training Goal, Time to Achieve 2 wks Transfer Training Goal, Activity Type all transfers Transfer Train Goal, Cabarrus Level independent Transfer Training Goal, Assist Device [...] treatment session. Kelsey Hua PT Pager # [phone] * Karis Mejia MSW - 04/11/2018 1:15 PM EDT Discharge Planning: O: Requested by CM-RN to contact Mother re her concerns around housing. Tray Service Worker spoke with Mother who relayed that she [...] and plans to speak with her local [place] on Aging. Tray Service Worker suggested to Mother that she begin to have a conversation with them around [place] as that would be the payor source for patient. Mother is also interested in finding out what the discharge plan will be. Tray Service Worker relayed that a CM-RN would be in [...] longer needed); will follow up with Transplant Nephrology/[facility] today Tim Ogden MD * Odalis [...] MD/NEHA, PGY-5 Section of Vascular Surgery, Pager [phone] * Tim Ogden MD - 04/10/2018 10:57 [...] 04/09/2018 Neurology resident, PGY-4 Vascular Neurology Pager [phone] ... I saw and evaluated the patient [...] MD/NEHA, PGY-5 Section of Vascular Surgery, Pager [phone] * Alfonzo Miles MD - 04/08/2018 4:56 [...] initiated. Alfonzo Miles MD [place] [address] Pager: [phone], #[phone] Email: [email or web address] * Sharmin Barth, RN - 04/08/2018 12:34 PM EDT [facility] RESPONSE TEAM NOTE Name: Christy Ginna Ambrose Age: 57 y.o. Sex; Male Date of : 1960 Responding Members: JUAN F, BENJAMIN, SHELDON Date/Time of Admission: 04/06/2018 12:58 PM Unit/Room: 427 4W Service: Vascular sx Attending: Quin Peter Car Varnisher present? Yes Attending Contacted? Yes Time Activated: [...] f/u Wednesday as appropriate. Negrita Arnold OT #[phone] * Veronica Holt RN - 04/08/2018 12:09 [...] any questions. 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 to [facility] on 04/06/18 for hemorrhagic shock status post [...] Latest Ref Range: Clear Hazy (A) Spec Thornton UA Latest Ref Range: 1.002 - 1.030 [...] mild hypoxic ischemic injury. ?? 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 Description [...] Pt intubated in field. Pt taken to [facility], where second tourniquet applied and pt received 6U PRBC. Transferred to [facility] for further care. ?? Of note, per [...] performed by Miguel Angel Moreno MD at [facility] OR ??? PRO DECOMPRESS FOREARM, BRACH ART EXPLOR Left 04/06/2018 FASCIOTOMY, FOREARM, WITH BRACHIAL ARTERY EXPLORATION (WRVU 8.41) performed by Lida Peter MDat [facility] OR ??? PRO DIRECT REPAIR RUPTURED ANEURYSM, AXILLO-BRACHIAL ARM INCIS Left 04/06/2018 @REPAIR, RUPTURED AXILLARY OR BRACHIAL ARTERY ANEURYSM BY ARM INCISION (WRVU *) performed by Lida Peter MD at [facility] OR ??? PRO EXC PAROTD, TOTAL, UNILAT RAD NECK Left 02/05/2016 @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, TOTAL, WITH UNILATERAL RADICAL NECK DISSECTION performed by Miguel Angel Moreno MD at [facility] OR ??? PRO EXC SKIN MALIG 3.1-4CM FACE, FACIAL Left 02/05/2016 EXC MALIGNANT LESION, 3.1 TO 4.0CM, FACE performed by Miguel Angel Moreno MD at [facility] OR ? ? PRO EXC SKIN MALIG >4CM TRUNK, ARM, LEG 04/19/2012 EXC MALIGNANT LESION, MICHAEL > 4.0CM, TRUNK performed by SABRINA MEDRANO at [facility] OR ??? PRO LAP, RADICAL NEPHRECTOMY Left 05/31/2017 @LAPAROSCOPY, RADICAL NEPHRECTOMY (WRVU 25.06) performed by Jax Mills MD at [facility] OR ??? PRO REBL VES GRAFT, UP EXTREM Left 04/06/2018 REPAIR BLOOD VESSEL WITH GRAFT OTHER THAN VEIN, UPPER EXTREMITY (WRVU 15.83) performed by Lida Peter MD at [facility] OR ??? PRO RELIEVE PRESSURE ON NERVE(S) Left 04/06/2018 (MSURG) CARPAL TUNNEL (WRVU 4.82) performed by Hay Sparks MD at [facility] OR ??? PRO REPAIR INTERMEDIATE S/A/T/E 2.6-7.5 CM 04/19/2012 REPAIR INTERMEDIATE WOUND, (NO HANDS OR FEET) 2.6 TO 7.5CM, UPPER EXTREMITY performed by SABRINA MEDRANO at [facility] OR ??? PRO REVISE MEDIAN N/CARPAL TUNNEL SURG Left 04/06/2018 MEDIAN NERVE DECOMPRESSION (CARPAL TUNNEL RELEASE) (WRVU 4.97) performed by Lida Peter MD [facility] OR ? ? PRO SPLIT GRFT, HEAD, FAC, HAND, FEET <100SQCM N/A 02/20/2016 SPLIT THICKNESS SKIN SPLIT GRAFT,100SQ CM OR LESS, NECK performed by Miguel Angel Moreno MD at [facility] OR ??? PRO UPPER GI ENDOSCOPY, BIOPSY N/A 05/13/2017 EGD WITH BIOPSY (WRVU 2.49) performed by Aditya Barrera MD at [facility] ENDOSCOPY ??? PRO VASCULAR SURGERY PROCEDURE UNLIST Left 11/20/2015 LIGATION\REPAIR AV FISTULA performed by Camilo Ireland MD at [facility] OR ??? PRO VASCULAR SURGERY PROCEDURE UNLIST Left 11/20/2015 EXCISION VEIN FROM HAND performed by Camilo Ireland MD at [facility] OR ??? 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 [...] epilepsy, and prior TBI who presents to [facility] s/p hemorrhagic shock and PEA arrest from [...] care per primary Vascular team. Please page #[phone] for any further questions or concerns. Procedures: [...] -none Sabrina Armas MD 04/07/2018 Trauma pager [phone] * Apple Gutierrez MD - 04/07/2018 6:59 [...] and tender to touch. Pt transferred to [facility] with all belongings. Report given to oncoming RN. * Natalya Minaya MD - 04/08/2018 12:59 PM EDT Critical Care - Admission Note History of Present Illness: Christy Ambrose is a 57 y/o M w/ PMH developmental delay, epilepsy, IGA nephropathy (s/p renal transplant 2002, on tac & mycophenalate) left united keetoowah nephrectomy (2016), HTN who was found down on 04/06 at his home w/ bleeding from L AVF. He had PEA arrest, ROSC w/ chest compressions, 1 dose epi. Tourniquet applied to L arm in field, pt intubated and brought to [facility]. Received 6 units PRBC & transferred to [facility]. On arrival [facility] 11, taken to OR [...] performed by Miguel Angel Moreno MD at [facility] OR ??? PRO DECOMPRESS FOREARM, BRACH ART EXPLOR Left 04/06/2018 FASCIOTOMY, FOREARM, WITH BRACHIAL ARTERY EXPLORATION (WRVU 8.41) performed by Lida Peter MDat [facility] OR ??? PRO DIRECT REPAIR RUPTURED ANEURYSM, AXILLO-BRACHIAL ARM INCIS Left 04/06/2018 @REPAIR, RUPTURED AXILLARY OR BRACHIAL ARTERY ANEURYSM BY ARM INCISION (WRVU *) performed by Lida Peter MD at [facility] OR ??? PRO EXC PAROTD, TOTAL, UNILAT RAD NECK Left 02/05/2016 @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, TOTAL, WITH UNILATERAL RADICAL NECK DISSECTION performed by Miguel Angel Moreno MD at [facility] OR ??? PRO EXC SKIN MALIG 3.1-4CM FACE, FACIAL Left 02/05/2016 EXC MALIGNANT LESION, 3.1 TO 4.0CM, FACE performed by Miguel Angel Moreno MD at [facility] OR ? ? PRO EXC SKIN MALIG >4CM TRUNK, ARM, LEG 04/19/2012 EXC MALIGNANT LESION, MICHAEL > 4.0CM, TRUNK performed by SABRINA MEDRANO at [facility] OR ??? PRO LAP, RADICAL NEPHRECTOMY Left 05/31/2017 @LAPAROSCOPY, RADICAL NEPHRECTOMY (WRVU 25.06) performed by Jax Mills MD at [facility] OR ??? PRO REBL VES GRAFT, UP EXTREM Left 04/06/2018 REPAIR BLOOD VESSEL WITH GRAFT OTHER THAN VEIN, UPPER EXTREMITY (WRVU 15.83) performed by Lida Peter MD at [facility] OR ??? PRO RELIEVE PRESSURE ON NERVE(S) Left 04/06/2018 (MSURG) CARPAL TUNNEL (WRVU 4.82) performed by Hay Sparks MD at [facility] OR ??? PRO REPAIR INTERMEDIATE S/A/T/E 2.6-7.5 CM 04/19/2012 REPAIR INTERMEDIATE WOUND, (NO HANDS OR FEET) 2.6 TO 7.5CM, UPPER EXTREMITY performed by SABRINA MEDRANO at [facility] OR ??? PRO REVISE MEDIAN N/CARPAL TUNNEL SURG Left 04/06/2018 MEDIAN NERVE DECOMPRESSION (CARPAL TUNNEL RELEASE) (WRVU 4.97) performed by Lida Peter MD [facility] OR ? ? PRO SPLIT GRFT, HEAD, FAC, HAND, FEET <100SQCM N/A 02/20/2016 SPLIT THICKNESS SKIN SPLIT GRAFT,100SQ CM OR LESS, NECK performed by Miguel Angel Moreno MD at [facility] OR ??? PRO UPPER GI ENDOSCOPY, BIOPSY N/A 05/13/2017 EGD WITH BIOPSY (WRVU 2.49) performed by Aditya Barrera MD at [facility]COPY ??? PRO VASCULAR SURGERY PROCEDURE UNLIST Left 11/20/2015 LIGATION\REPAIR AV FISTULA performed by Camilo Ireland MD at [facility] OR ??? PRO VASCULAR SURGERY PROCEDURE UNLIST Left 11/20/2015 EXCISION VEIN FROM HAND performed by Camilo Ireland MD at [facility] OR ??? 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 Smoking status: [...] 7.27* PO2ART 65* 152* 168* 228* 379* [id number] 31* 34* 39 40 36 BEART -11.8* [...] with Custom Additives 50 mL/hr at 04/07/18 3392 Procedure Component Value Units Date/Time ? Body Fluid Culture, Aerobic & Anaerobic Fluid [[id number]] Collected: 04/06/18 1415 ? Lab Status: Preliminary result Specimen: Fluid Updated: 04/07/18 1332 ? Body Fluid Culture, Aerobic [[id number]] Collected: 04/06/18 1415 ? Lab Status: Preliminary result Specimen: Fluid Updated: 04/07/18 0804 ? Body Fluid Culture Few normal cutaneous shaina ? Gram Stain -- ? Few Neutrophils seen No microorganisms seen. ? Anaerobic Culture [[id number]] Collected: 04/06/18 1415 ? 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 [...] Disposition: Critical Care Red 1 Team (pager [phone]) Natalya Minaya MD 04/08/2018 * Erwin Marino MD - 04/06/2018 5:03 PM EDT Critical Care - Admission Note History of Present Illness: Christy Ambrose is a 57 y.o. male with PMH of HTN, TBI w/ epilepsy, gout, IgA nephropathy s/p donor renal transplant 2002 (on tacrolimus and cellcept) complicated by delayed graft function andrecurrent IgA nephropathy and Prograf toxicity, laparoscopic L united keetoowah radical nephrectomy May 2017 for papillary carcinoma, HTN, previous revision of L AVF due to massive size. Recently put on coumadin for infection of left forearm with swelling, suspected to be DVT. Presents to [facility] with hemorrhagic shock s/p PEA arrest secondary to torrential left upper extremity fistula bleeding. Per EMS the patient had a severe amount of blood loss in the bathroom and bedroom that resulted in PEA cardiac arrest at the scene. He received epinephrine, 2.5 L of normal saline with ROSC obtained. Ar[facility] at [facility] and sedated and then received 6 [...] performed by Miguel Angel Moreno MD at [facility] OR ??? PRO EXC PAROTD, TOTAL, UNILAT RAD NECK Left 02/05/2016 @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, TOTAL, WITH UNILATERAL RADICAL NECK DISSECTION performed by Miguel Angel Moreno MD at [facility] OR ??? PRO EXC SKIN MALIG 3.1-4CM FACE, FACIAL Left 02/05/2016 EXC MALIGNANT LESION, 3.1 TO 4.0CM, FACE performed by Miguel Angel Moreno MD at [facility] OR ? ? PRO EXC SKIN MALIG >4CM TRUNK, ARM, LEG 04/19/2012 EXC MALIGNANT LESION, MICHAEL > 4.0CM, TRUNK performed by SABRINA MEDRANO at [facility] OR ??? PRO LAP, RADICAL NEPHRECTOMY Left 05/31/2017 @LAPAROSCOPY, RADICAL NEPHRECTOMY (WRVU 25.06) performed by Jax Mills MD at [facility] OR ??? PRO REPAIR INTERMEDIATE S/A/T/E 2.6-7.5 CM 04/19/2012 REPAIR INTERMEDIATE WOUND, (NO HANDS OR FEET) 2.6 TO 7.5CM, UPPER EXTREMITY performed by SABRINA MEDRANO at [facility] OR ? ? PRO SPLIT GRFT, HEAD, FAC, HAND, FEET <100SQCM N/A 02/20/2016 SPLIT THICKNESS SKIN SPLIT GRAFT,100SQ CM OR LESS, NECK performed by Miguel Angel Moreno MD at [facility] OR ??? PRO UPPER GI ENDOSCOPY, BIOPSY N/A 05/13/2017 EGD WITH BIOPSY (WRVU 2.49) performed by Aditya Barrera MD at [facility] ??? PRO VASCULAR SURGERY PROCEDURE UNLIST Left 11/20/2015 LIGATION\REPAIR AV FISTULA performed by Camilo Ireland MD at [facility] OR ??? PRO VASCULAR SURGERY PROCEDURE UNLIST Left 11/20/2015 EXCISION VEIN FROM HAND performed by Camilo Ireland MD at [facility] OR ??? 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 [...] mcL Appearance UA Hazy (A) Clear Spec Thornton UA 1.023 1.002 - 1.030 Color UA [...] No microorganisms seen. Radiology: XR Chest and [id number] 9/26 Prominence of the superior mediastinum may [...] Ambrose Level of Activation: Trauma 9 MR#: [id number] [ ]Scene Call or [X]Hospital Transfer : [id number] CC/MECHANISM OF INJURY: 57 y.o. Male s/p [...] HTN, epilepsy,and prior TBI who presents to [facility] s/p LUE bleeding with PEA arrest. Description [...] Pt intubated in field. Pt taken to [facility], where second tourniquet applied and pt received 6U PRBC. Transferred to [facility] for further care. Of note, per Dr. [...] performed by Miguel Angel Moreno MD at [facility] OR ??? PRO EXC PAROTD, TOTAL, UNILAT RAD NECK Left 02/05/2016 @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, TOTAL, WITH UNILATERAL RADICAL NECK DISSECTION performed by Miguel Angel Moreno MD at [facility] OR ??? PRO EXC SKIN MALIG 3.1-4CM FACE, FACIAL Left 02/05/2016 EXC MALIGNANT LESION, 3.1 TO 4.0CM, FACE performed by Miguel Angel Moreno MD at [facility] OR ? ? PRO EXC SKIN MALIG >4CM TRUNK, ARM, LEG 04/19/2012 EXC MALIGNANT LESION, MICHAEL > 4.0CM, TRUNK performed by SABRINA MEDRANO at [facility] OR ??? PRO LAP, RADICAL NEPHRECTOMY Left 05/31/2017 @LAPAROSCOPY, RADICAL NEPHRECTOMY (WRVU 25.06) performed by Jax Mills MD at [facility] OR ??? PRO REPAIR INTERMEDIATE S/A/T/E 2.6-7.5 CM 04/19/2012 REPAIR INTERMEDIATE WOUND, (NO HANDS OR FEET) 2.6 TO 7.5CM, UPPER EXTREMITY performed by SABRINA MEDRANO at [facility] OR ? ? PRO SPLIT GRFT, HEAD, FAC, HAND, FEET <100SQCM N/A 02/20/2016 SPLIT THICKNESS SKIN SPLIT GRAFT,100SQ CM OR LESS, NECK performed by Miguel Angel Moreno MD at [facility] OR ??? PRO UPPER GI ENDOSCOPY, BIOPSY N/A 05/13/2017 EGD WITH BIOPSY (WRVU 2.49) performed by Aditya Barrera MD at [facility] ??? PRO VASCULAR SURGERY PROCEDURE UNLIST Left 11/20/2015 LIGATION\REPAIR AV FISTULA performed by Camilo Ireland MD at [facility] OR ??? PRO VASCULAR SURGERY PROCEDURE UNLIST Left 11/20/2015 EXCISION VEIN FROM HAND performed by Camilo Ireland MD at [facility] OR ??? 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 Smoking status: [...] Normal RBC Morphology Abnormal Ovalocytes 1-5 /HPF Niles Cells 1-5 /HPF Rapid Drug Screen, Urine [...] mcL Appearance UA Hazy (A) Clear Spec Thornton UA 1.023 1.002 - 1.030 Color UA [...] epilepsy, and prior TBI who presents to [facility] s/p LUE bleeding with PEA arrest now [...] to the planned procedure. Hand Hygiene: The maintenance painter apprentice did perform hand hygiene prior to line insertion. Catheter type: PICC Lot number: [id number] Procedure Technique: Skin was prepped with chlorhexidine. [...] vac dressing completed. Left forearm wound measures [id number] with clean, well granulated base. PANCHITO Eng [...] MD - 04/09/2018 9:03 AM EDT [facility] Department of Neurology Critical Care [...] in the Intensive Care Unit by the [facility] Clinical Neurophysiology Laboratory. The 10/20 international [...] EDTAssociated Order(s): EEG AWAKE, ASLEEP, DROWSY [facility] Department of Neurology In Patient [...] channel digitized electroencephalogram was performed in the [facility] Clinical Neurophysiology Laboratory. The 10/20 international system of electrode placement was used and bipolar and referential electrode montages were recorded. In addition to EEG the patient was monitored for EKGand lateral/vertical eye movements. Video was recorded during the session. The duration of the recording was 30 minutes. VANSTONE MACHINE OPERATOR'S REPORT: Performed by: AT Patient was not [...] the ICU afterwards. Erwin Hernandez MD 04/06/18 1212 * John Nix RN - 04/06/2018 1:23 [...] briefly with patient to update him that [facility] in [place], [place] is reviewing him for possible admission this week. Pt was appreciative for this news. Pt [facility] filed for [facility]. Pt's staff nurse Lalitha mensah. I was going to call pt's brother Lucas to discuss. CUSTOMER SERVICE DRIVERSam Wan had just talked with pt's brother and mother Ilda and informed me that a tentative family meeting has been set up for tomorrow at 3:00 pm. CM will be part of the meeting; will continue to follow. Padmini Ruiz, SAVANNA [phone] * Plan of Care - Naz Robbins [...] PRN PICC dressing change completed as per [facility] protocol. yes Positive pressure displacement connector (Max [...] none Problem: Health Knowledge, Opportunity to Enhance (Adult,NICU,Paulina,Obstetrics,Pediatric) Goal: Knowledgeable about Health Subject/Topic Patient will demonstrate the desired outcomes by discharge/transition of care. Outcome: Ongoing (Interventions Implemented as Appropriate) 04/30/18 1903 Health Knowledge, Opportunity to Enhance (Adult,NICU,Paulina,Obstetrics,Pediatric) Knowledgeable about Health Subject/Topic making progress toward [...] 04/27/2018 3:19 PM EDT OFFICE OF CARE MANAGEMENT/Production Clerks Supervisor/PROGRESS NOTE e-DH reviewed. Report received from vascular. [...] Discharge Disposition: (P) inpatient rehabilitation facility Pager: [phone] IRLANDA MUNOZ 04/27/2018 Occupational Therapy Rehabilitation Department 04/27/18 1412 Rehab Evaluation Document Type therapy note (daily note) Total Evaluation Minutes, Occupational Therapy 24 Patient Effort good Symptoms Noted During/After Treatment none General Information Patient Profile Review yes Patient/Family/Caregiver Comments/Observations I can fish bait picker a can of soup with my [...] Assessment/Treatment Assistive Device (Bed Mobility) bed rails [id number]-[id number] [place] (Bed Mobility) conditional independence Impairments (Bed Mobility) flexibility decreased;ROM (range of motion) decreased;strength decreased Comment (Bed Mobility) HOB slightyly elevated; vc's to adjust HOB Transfer Assessment/Treatment Chair-Bed [place] (Transfers) contact guard assist [place] (Sit-Stand Transfers) contact guard assist [place] (Stand-Sit Transfers) contact guard assist [place] (Toilet Transfers) (pt continues to report ambulating to bathrom for toileting) Impairments (Transfers) balance impaired;ROM (range of motion) decreased;strength decreased Gait Assessment/Treatment [place] (Gait) contact guard assist Assistive Device (Gait) gait belt Distance in Feet (Gait) 750' Safety Issues (Gait) balance decreased during turns;step length decreased Impairments (Gait) balance impaired;coordination impaired Comment (Gait) mild ataxia; no lob noted; assist to carry wound vac Lower Body Dressing Assessment/Training Position (LB Dressing) standing [place] Level (LB Dressing) contact guard assist Impairments [...] good balance Sitting Balance: Dynamic fair balance Fuw-tf-Qpyiq Balance fair balance Standing Balance: Static fair [...] in. ?? I have met with the patient/sales representative marine supplies to discuss discharge planning needs. I have provided the [facility], Office of Care Management letter from the Foreign Clerk pertaining to rehab referrals. I have also provided a letter describing our affiliations within the [facility] and educated them about their right to choose where referrals are placed. ?? I reviewed the different levels of rehab including SNF, swing, acute and LTAC with the patient/sales representative marine supplies. ?? The patient/sales representative marine supplies has been provided a list of facilities within their preferred geographic area. ?? I have requested that the patient/sales representative marine supplies provide at least three choices for referral. ?? The patient/sales representative marine supplies have requested referrals to: ?? 1. [facility] ?? 2. [facility] ?? 3. [facility]. View ?? Expected date of discharge: 3-5 days Note routed to Embroiderer who will communicate referrals to facilities and provide any required information. * Plan of Care - Helen Denny RN - 04/27/2018 10:22 AM EDT Problem: Health Knowledge, Opportunity to Enhance (Adult,NICU,Paulina,Obstetrics,Pediatric) Goal: Knowledgeable about Health Subject/Topic Patient will demonstrate the desired outcomes by discharge/transition of care. Peripherally Inserted Central Catheter (PICC) Teaching Sheet Peripherally inserted central catheters (jgyl-nj-doir) (PICC) are used when you need IV [...] midline catheter? PICC lines are used for bed bug exterminator treatments. PICC lines may be used for [...] can be set up via the nurse Production Clerks Supervisor to help you. What are possible complications [...] Efficacy, Safety, Use, and Administration of [employer], [employer] 2005 * Plan of Care - [...] Sparks MD - 04/26/2018 12:40 PM EDT [facility] [place] Patient Name: Christy Ambrose : [id number] MR#: [id number] Case Date: 04/26/2018 Surgeon: Surgeon(s) and Role: [...] Aditi Mccollum MD Plastic Surgery Resident, pager [phone] Plastic surgery team pager: [phone] Attestation: Case Date: 04/26/2018 I was present and I participated during the entire procedure (does not need to include opening and closing). HAY SPARKS MD 04/27/2018 * Brief Op Note - Aditi Mccollum MD - 04/26/2018 12:36 PM EDT Brief Operative Note Patient Name: Christy Ambrose : [id number] MR#: [id number] Case Date: 04/26/2018 Surgeon: Surgeon(s) and Role: [...] -- Reorient when needed, encourage ambulations 04/19/18 1746 Mutuality/Individual Preferences What Anxieties, Fears or Concerns [...] performed by Miguel Angel Moreno MD at [facility] MAIN OR ??? PRO DECOMPRESS FOREARM, BRACH ART EXPLOR Left 04/06/2018 FASCIOTOMY, FOREARM, WITH BRACHIAL ARTERY EXPLORATION (WRVU 8.41) performed by Lida Peter MDat [facility] OR ??? PRO DIRECT REPAIR RUPTURED ANEURYSM, AXILLO-BRACHIAL ARM INCIS Left 04/06/2018 @REPAIR, RUPTURED AXILLARY OR BRACHIAL ARTERY ANEURYSM BY ARM INCISION (WRVU *) performed by Lida Peter MD at [facility] OR ??? PRO EXC PAROTD, TOTAL, UNILAT RAD NECK Left 02/05/2016 @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, TOTAL, WITH UNILATERAL RADICAL NECK DISSECTION performed by Migule Angel Moreno MD at [facility] OR ??? PRO EXC SKIN MALIG 3.1-4CM FACE, FACIAL Left 02/05/2016 EXC MALIGNANT LESION, 3.1 TO 4.0CM, FACE performed by Miguel Angel Moreno MD at [facility] OR ? ? PRO EXC SKIN MALIG >4CM TRUNK, ARM, LEG 04/19/2012 EXC MALIGNANT LESION, MICHAEL > 4.0CM, TRUNK performed by SABRINA MEDRANO at [facility] OR ??? PRO LAP, RADICAL NEPHRECTOMY Left 05/31/2017 @LAPAROSCOPY, RADICAL NEPHRECTOMY (WRVU 25.06) performed by Jax Mills MD at [facility] OR ??? PRO LIGATN ANGIOACCESS AV FISTULA Left 04/19/2018 LIGATION OR BANDING OF HEMODIALYSIS FISTULA OR GRAFT UPPER EXTREMITY (WRVU 6.25) performed by Odalis Elias MD at [facility] MAIN OR ??? PRO NEGATIVE PRESSURE WOUND THERAPY, LESS THAN OR EQUAL TO 50 SQCM Left 04/19/2018 DRESSING CHANGE (VAC ASSISTED) UP TO 50SQ.CM (WRVU 0.55) performed by Odalis Elias MD [facility] MAIN OR ??? PRO REBL VES GRAFT, UP EXTREM Left 04/06/2018 REPAIR BLOOD VESSEL WITH GRAFT OTHER THAN VEIN, UPPER EXTREMITY (WRVU 15.83) performed by Lida Peter MD at [facility] MAIN OR ??? PRO RELIEVE PRESSURE ON NERVE(S) Left 04/06/2018 (MSURG) CARPAL TUNNEL (WRVU 4.82) performed by Hay Sparks MD at [facility] MAIN OR ??? PRO REPAIR INTERMEDIATE S/A/T/E 2.6-7.5 CM 04/19/2012 REPAIR INTERMEDIATE WOUND, (NO HANDS OR FEET) 2.6 TO 7.5CM, UPPER EXTREMITY performed by SABRINA MEDRANO at [facility] MAIN OR ? ? PRO REPAIR INTERMEDIATE S/A/T/E > 30.0 CM Left 04/14/2018 REPAIR INTERMEDIATE WOUND, (NO HANDS OR FEET) >30.0CM, UPPER EXTREMITY (WRVU 5) performed by Yimi Easton MD at [facility] MAIN OR ??? PRO REVISE MEDIAN N/CARPAL TUNNEL SURG Left 04/06/2018 MEDIAN NERVE DECOMPRESSION (CARPAL TUNNEL RELEASE) (WRVU 4.97) performed by Lida Peter MD [facility] MAIN OR ? ? PRO SPLIT GRFT, HEAD, FAC, HAND, FEET <100SQCM N/A 02/20/2016 SPLIT THICKNESS SKIN SPLIT GRAFT,100SQ CM OR LESS, NECK performed by Miguel Angel Moreno MD at [facility] MAIN OR ??? PRO UPPER GI ENDOSCOPY, BIOPSY N/A 05/13/2017 EGD WITH BIOPSY (WRVU 2.49) performed by Aditya Barrera MD at [facility] ENDOSCOPY ??? PRO VASCULAR SURGERY PROCEDURE UNLIST Left 11/20/2015 LIGATION\REPAIR AV FISTULA performed by Camilo Ireland MD at [facility] MAIN OR ??? PRO VASCULAR SURGERY PROCEDURE UNLIST Left 11/20/2015 EXCISION VEIN FROM HAND performed by Camilo Ireland MD at [facility] MAIN OR ??? 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 [...] as pending/add-on, please make patient NPO at [place] on Wednesday. Attending: Plan discussed and agree [...] health management. Pt demonstrating increased ambulation w/ cleaning staff supervisor and participating in functional ADL tasks. Pt will benefit from ongoing therapeutic interventions to achieve pt's and therapy goals. Please refer to associated flowsheet data listed below for treatment session details. Staff Recommendations: Encourage OOB activity and participation in all self care tasks Anticipated Discharge Disposition: (P) inpatient rehabilitation facility Pager: [phone] IRLANDA MUNOZ 04/22/2018 Occupational Therapy Rehabilitation Department [...] Level 0 Pain Goal 0 Transfer Assessment/Treatment [place] (Sit-Stand Transfers) supervision required [place] (Toilet Transfers) supervision required Assistive Device (Toilet Transfers) bracing Impairments (Transfers) strength decreased;balance impaired Comment (Transfers) assist for wound vac during toilet transfer; slightly impulsive Gait Assessment/Treatment [place] (Gait) supervision required Distance in Feet (Gait) 25 Impairments (Gait) balance impaired Comment (Gait) recliner <> bathroom ; witnessed pt ambulating unit w/ cleaning staff supervisor ~300 Bathing Assessment/Training Comment (Bathing) pt had just completed bathing task prior to this writers arrival; pt reported assisting w/ shower cap and bathing ; Lower Body Dressing Assessment/Training Position (LB Dressing) sitting [place] Level (LB Dressing) verbal cues required;nonverbal cues [...] Home with assist APURVA CASSIDY PTA Pager: [phone] Inpatient Physical Therapy Timed Up & Go [...] Assessment/Treatment Assistive Device (Bed Mobility) bed rails Pjdgwj-cz-Vaf [place] (Bed Mobility) conditional independence Comment (Bed Mobility) HOB flat, extra time required Ibj-uo-Uzloyy [place] (Bed Mobility) conditional independence Transfer Assessment/Treatment [place] (Sit-Stand Transfers) supervision required [place] (Stand-Sit Transfers) supervision required Vmu-Lazko-Kng Assistive Device (Transfers) (no device) Maintain Weight Bearing Status (Transfers) cues to maintain weight bearing status Safety Issues (Transfers) balance decreased during turns Impairments (Transfers) balance impaired;strength decreased Comment (Transfers) Initial cues to not use L UE, impulsive, pt held wound vac with R UE Gait Assessment/Treatment [place] (Gait) supervision required Assistive Device (Gait) (no [...] to sit/sit to sidelying Bed Mobility Goal, [place] Level independent Bed Mobility Goal, Outcome Achieved goal ongoing Gait Training Goal Gait Training Goal, Date Established 04/11/18 Gait Training Goal, Time to Achieve 2 wks Gait Training Goal, [place] Level independent Gait Training Goal, Assist Device other (see comments) (LRD ) Gait Training Goal, Distance to Achieve 150 ft Gait Training Goal, Outcome goal ongoing Transfer Training Goal Transfer Training Goal, Date Established 04/11/18 Transfer Training Goal, Time to Achieve 2 wks Transfer Training Goal, Activity Type all transfers Transfer Train Goal, [place] Level independent Transfer Training Goal, Assist Device [...] Discharge Disposition: (P) inpatient rehabilitation facility Pager: [phone] IRLANDA MUNOZ 04/20/2018 Occupational Therapy Rehabilitation Department 04/20/18 1118 Rehab Evaluation Document Type therapy note (daily [...] Level 0 Pain Goal 0 Transfer Assessment/Treatment [place] (Sit-Stand Transfers) contact guard assist [place] (Stand-Sit Transfers) contact guard assist Oea-Reyjm-Yzk Assistive Device (Transfers) gait belt Safety Issues (Transfers) balance decreased during turns Impairments (Transfers) balance impaired;strength decreased Comment (Transfers) slightly impulsive at times; cues for safety awareness Gait Assessment/Treatment [place] (Gait) verbal cues required;nonverbal cues required (demo/gesture);contact guard assist Assistive Device (Gait) gait belt Distance in Feet (Gait) 300' Safety Issues (Gait) balance decreased during turns;step length decreased Impairments (Gait) balance impaired;strength decreased Comment (Gait) pt required mulit modal cues for directions; slightly impulsive; Lower Body Dressing Assessment/Training Position (LB Dressing) sitting;standing [place] Level (LB Dressing) set up required;verbal cues [...] good balance Sitting Balance: Dynamic fair balance Cuv-nw-Qherk Balance fair balance Standing Balance: Static fair [...] DVT on coumadin who was transferred to [facility] for [place] shock with PEA arrest secondary to fistulableeding. He is a limited historian- history taken from chart- He had had some leaking from his LUEAVF site and was found by his mom in a pool of blood, pulseless. He was transfused 6 units of prbcsand transferred to [facility]. He had previous LAVF revision due to [...] Danielle Peoples DO Infectious Disease Fellow Pager [phone] Associated attestation - Katarzyna Guevara MD - [...] Junior MD - 04/19/2018 10:43 AM EDT [facility] Operative Note Patient Name: Christy Ambrose : [id number] MR#: [id number] Case Date: 04/19/2018 Surgeon: Surgeon(s) and Role: [...] Junior MD - 04/19/2018 10:25 AM EDT [facility] Operative Note Patient Name: Christy Ambrose : [id number] MR#: [id number] Case Date: 04/19/2018 Surgeon: Surgeon(s) and Role: [...] 04/18/2018 2:40 PM EDT OFFICE OF CARE MANAGEMENT/Production Clerks Supervisor/PROGRESS NOTE e-DH reviewed. Report received from vascular [...] wound base. --Had AVF ultrasound today in [facility] lab to assess AVF --NPO [...] Disorder/Epilepsy) none * Plan of Care - iBta Macedo RN - 04/17/2018 5:53 AM EDT [...] 04/15/2018 12:36 PM EDT OFFICE OF CARE MANAGEMENT/Production Clerks Supervisor/PROGRESS NOTE e-DH reviewed. Report received from vascular [...] Discharge Disposition: (P) inpatient rehabilitation facility Pager: [phone] IRLANDA MUNOZ 04/15/2018 Occupational Therapy Rehabilitation Department [...] 0 Pain Goal 0 Transfer Assessment/Treatment Bed-Chair [place] (Transfers) contact guard assist Kim-Ocyin-Nyk Assistive Device (Transfers) (IV pole for support ) [place] (Sit-Stand Transfers) set up required;verbal cues required;contact guard assist [place] (Stand-Sit Transfers) verbal cues required;contact guard assist Twf-Zaubp-Jdh Assistive Device (Transfers) (IV pole ) Safety Issues (Transfers) sequencing ability decreased;step length decreased;weight-shifting ability decreased Impairments (Transfers) balance impaired;strength decreased Comment (Transfers) cues for safe hand placement and task initation Gait Assessment/Treatment [place] (Gait) verbal cues required;contact guard assist Assistive [...] Body Dressing Assessment/Training Position (UB Dressing) sitting [place] Level (UB Dressing) contact guard assist Comment (UB Dressing) don/doff patti Grooming Assessment/Training Position (Grooming) sitting [place] Level (Grooming) set up required;verbal cues required;contact [...] Please contact Violetta Deng RN on pager [phone] or the wound care team at [phone] or pager [phone] with skin and wound care concerns or [...] for specific details, POC and goals. Recommendations CORPORATE EVENTS DIRECTOR Diet Recommendation: regular solid, thin liquids Therapy Frequency: other (see comments) (D/C from speech intervention.) MIGUEL ANGEL PIERCE, CORPORATE EVENTS DIRECTOR Inpatient Speech Pathologist Pager: [phone] 04/15/18 1011 Rehab Evaluation Document Type therapy [...] Dysphagia Goal, Outcome goal met Clinical Impression CORPORATE EVENTS DIRECTOR Swallowing Diagnosis other (see comments) (Functionally appearing oropharyngeal swallow) Rehab Potential/Prognosis, Swallowing good, to achieve stated therapy goals Therapy Frequency other (see comments) (D/C from speech intervention.) CORPORATE EVENTS DIRECTOR Diet Recommendation regular solid;thin liquids * Plan [...] Disposition: inpatient rehabilitation facility APURVA CASSIDYMARANDA Pager: [phone] Inpatient Physical Therapy 04/15/18 5554 Rehab Evaluation Document Type therapy note (daily note) Total Evaluation Minutes, Physical Therapy 25 (TE-F x 2) Patient Effort excellent Symptoms Noted During/After Treatment fatigue General Information Patient/Family/Caregiver Comments/Observations I need to get moving more, and it will get better Pertinent History of Current Problem Christymaty Delunaon [...] cook, clean independently. 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 pt usually ambulates w/o AD, but occasionally will walk w/ cane Pain Scale/Rating Pain Assessment Scale Word (verbal rating pain scale) Pain Level 0 Bed Mobility Assessment/Treatment Assistive Device (Bed Mobility) bed rails Lxoynt-hx-Ozr [place] (Bed Mobility) supervision required Comment (Bed Mobility) HOB elevated, extra time required Safety Issues (Bed Mobility) decreased use of arms for pushing/pulling Impairments (Bed Mobility) strength decreased Transfer Assessment/Treatment [place] (Sit-Stand Transfers) contact guard assist [place] (Stand-Sit Transfers) contact guard assist Rve-Udwmu-Gdb Assistive Device (Transfers) (IV pole) Safety Issues (Transfers) balance decreased during turns;step length decreased;loses balance backward Impairments (Transfers) balance impaired;strength decreased Comment (Transfers) Initially falling back onto bed with standing or marching in place, able to steady himself with the IV pole Gait Assessment/Treatment [place] (Gait) contact guard assist Assistive Device (Gait) [...] to sit/sit to sidelying Bed Mobility Goal, [place] Level independent Bed Mobility Goal, Outcome Achieved goal ongoing Gait Training Goal Gait Training Goal, Date Established 04/11/18 Gait Training Goal, Time to Achieve 2 wks Gait Training Goal, [place] Level independent Gait Training Goal, Assist Device other (see comments) (LRD ) Gait Training Goal, Distance to Achieve 150 ft Gait Training Goal, Outcome goal ongoing Transfer Training Goal Transfer Training Goal, Date Established 04/11/18 Transfer Training Goal, Time to Achieve 2 wks Transfer Training Goal, Activity Type all transfers Transfer Train Goal, [place] Level independent Transfer Training Goal, Assist Device [...] Easton MD - 04/14/2018 8:19 AM EDT [facility] Operative Note Patient Name: Christy Ambrose : [id number] MR#: [id number] Case Date: 04/14/2018 Surgeon: Surgeon(s) and Role: [...] he was found down. [facility] 2 tourniquets on since [...] discharge. ?? I have met with the patient/sales representative marine supplies to discuss discharge planning needs. I have provided the [facility], Office of Care Management letter from the Foreign Clerk pertaining to rehab referrals. I have also provided a letter describing our affiliations within the [facility] and educated them about their right to choose where referrals are placed. ?? I reviewed the different levels of rehab including SNF, swing, acute and LTAC with the patient/sales representative marine supplies. ?? The patient/sales representative marine supplies has been provided a list of facilities within their preferred geographic area. ?? I have requested that the patient/sales representative marine supplies provide at least three choices for referral. ?? The patient/sales representative marine supplies have requested referrals to: ?? 1. [facility]. ?? 2. [facility] ?? 3. ?? Expected date of discharge: next 24- 48 hours Note routed to Embroiderer who will communicate referrals to facilities and [...] epilepsy, and prior TBI who presents to [facility] s/p LUE bleeding with PEA arrest. Description [...] Pt intubated in field. Pt taken to [facility], where second tourniquet applied and pt received 6U PRBC. Transferred to [facility]. Per H and P Dr. Burkett. Past Medical History: Diagnosis Date ??? BP (high blood pressure) ??? DVT (deep venous thrombosis) ??? Gout ??? Hypertension ??? Kidney problem ??? Pneumonia ??? TBI (traumatic brain injury) 1980 Hospitalizations Within the Past 30 Days: [facility] Anticipated Length Of Stay (If known): Expected Length of Hospitalization: 5-7 days Current Decision-Making Capacity: Alert but confused. Awakes when I speak but confused when answering. Advance Care Planning: Adv. Directives are from 2010, pt's POA is brother Lucas Ambrose who resides in [facility], pat's 86 year old mother [...] Insurance: N/A Prescription Coverage: yes Preferred Pharmacy: [facility] in [place], [place]. Primary Care Provider: Carorll Garcia DO [phone] Patient/Caregiver Goals of Treatment: to go to [...] longer needed); will follow up with [facility] today Plan: to go to acute rehab at discharge. A member of the Care Management team will continue to monitor progress, follow for continuity of care and assist with transition of care planning. North Leong RN Pager: [phone] * Care Management - North Leong RN - 04/12/2018 2:33 PM EDT Based on discussions with the multi-disciplinary healthcare team, the patient would benefit from acute inpatient rehab. level of care at discharge. ?? I have met with the patient/sales representative marine supplies to discuss discharge planning needs. I have provided the [facility], Office of Care Management letter from the Foreign Clerk pertaining to rehab referrals. I have also provided a letter describing our affiliations within the [facility] and educated them about their right to choose where referrals are placed. ?? I reviewed the different levels of rehab including SNF, swing, acute and LTAC with the patient/sales representative marine supplies. ?? The patient/sales representative marine supplies has been provided a list of facilities within their preferred geographic area. ?? I have requested that the patient/sales representative marine supplies provide at least three choices for referral. ?? The patient/sales representative marine supplies have requested referrals to: ?? 1. [facility] [place], [place] ?? 2. [facility] ?? [facility] ?? Expected date of discharge: next 24-72 hours Note routed to Embroiderer who will communicate referrals to facilities and provide any required information. * Consult Note - Ashlie Willis [facility] - 04/12/2018 10:24 AM EDT Clinical Pharmacist Note - Renal Dose Adjustment for Antimicrobials Christy Ambrose (A# [id number]) is being treated with the following antimicrobial [...] Anticipated Discharge Disposition: inpatient rehabilitation facility Pager: [phone] RAFAELA ALONZO OT 04/11/2018 Occupational Therapy Rehabilitation Department 04/11/18 1050 Rehab Evaluation Document Type evaluation Total Evaluation [...] Comment Patient lives with his mother at [facility]. Ramp to enter, then elevator to 5th floor. Once inside, single floor. Tub shower, no chair. Regular bed Functional Level Prior Prior Functional Level Comment Reports independence with all ADL/IADL tasks. Drives. Works at the [employer]. Only ambulates with a cane on the [...] Assessment/Treatment Assistive Device (Bed Mobility) bed rails Avwvmc-rg-Qpx [place] (Bed Mobility) minimum assist (75% patient effort) Comment (Bed Mobility) HOB elevated Transfer Assessment/Treatment [place] (Sit-Stand Transfers) moderate assist (50% patient effort);2 person assist required;verbal cues required [place] (Stand-Sit Transfers) moderate assist (50% patient effort);2 person assist required;verbal cues required Qvr-Qehsz-Qwc Assistive Device (Transfers) (Initally stood w/o any AD. Poor balance ) Gait Assessment/Treatment [place] (Gait) moderate assist (50% patient effort);2 person [...] Body Dressing Assessment/Training Position (UB Dressing) sitting [place] Level (UB Dressing) minimum assist (75% patient effort) Lower Body Dressing Assessment/Training Position (LB Dressing) sitting [place] Level (LB Dressing) minimum assist (75% patient [...] not included. Infiltration/Extravasation Scale Christy Ginna Ambrose [id number] IC18/IC18-A Infiltration appearance: Infiltration harm % for [...] to comfort. MD at the Pt's bedside. SPECIAL NEEDS BABYSITTER CARING FOR THIS PATIENT WILL CONTINUE TO [...] mass index is 28.91 kg/(m^2). Current bed: [facility] Assessment: Pt with no sacral pressure injury [...] chair to 2 hour intervals. Use a [email or web address] chair cushion beneath patient at all times while in the chair. Reinforce teaching to shift weight every 15 minutes while in the chair. Following hospital standard for pressure ulcer prevention and skin care. Refer to adult/pediatric pressure ulcer prevention job aid in the clinical policy library. Wound care will follow weekly. Discussed plan with: RN: Elva Please contact MEAGHAN HOOD RN on pager [phone] or the wound care team at [phone] or pager [phone] with skin and wound care concerns or [...] Therapy Frequency: 2-3 times/wk MIGUEL ANGEL PIERCE, CORPORATE EVENTS DIRECTOR Inpatient Speech Pathologist Pager: [phone] 04/08/18 0382 Rehab Evaluation Document Type evaluation Total Evaluation [...] patient (RN) Speech Language Pathology Goal Types CORPORATE EVENTS DIRECTOR Goal Types Dysphagia Goal (Group) Dysphagia Goal Dysphagia Goal, Date Established 04/08/18 Dysphagia Goal, Time to Achieve by discharge Oral Nutritional Level Goal safely tolerates/maintains adequate oral nutrition;no signs/symptoms ofaspiration present Clinical Impression CORPORATE EVENTS DIRECTOR Swallowing Diagnosis oral dysfunction;other (see comments) (Functionally appearing pharyngeal dysphagia. ) Rehab Potential/Prognosis, Swallowing good, to achieve stated therapy goals Therapy Frequency 2-3 times/wk CORPORATE EVENTS DIRECTOR Diet Recommendation puree;thin liquids * Plan of [...] dose epi. Intubated in field. Arrived at [facility] ED intubated. Received 6 units pRBC. Transferred to [facility] and went to OR with vascular for [...] by Miguel Angel Moreno MD at [facility] OR ??? PRO DECOMPRESS FOREARM, BRACH ART EXPLOR Left 04/06/2018 FASCIOTOMY, FOREARM, WITH BRACHIAL ARTERY EXPLORATION (WRVU 8.41) performed by Lida Peter MDat [facility] OR ??? PRO DIRECT REPAIR RUPTURED ANEURYSM, AXILLO-BRACHIAL ARM INCIS Left 04/06/2018 @REPAIR, RUPTURED AXILLARY OR BRACHIAL ARTERY ANEURYSM BY ARM INCISION (WRVU *) performed by Lida Peter MD at [facility] OR ??? PRO EXC PAROTD, TOTAL, UNILAT RAD NECK Left 02/05/2016 @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, TOTAL, WITH UNILATERAL RADICAL NECK DISSECTION performed by Miguel Angel Moreno MD at [facility] OR ??? PRO EXC SKIN MALIG 3.1-4CM FACE, FACIAL Left 02/05/2016 EXC MALIGNANT LESION, 3.1 TO 4.0CM, FACE performed by Miguel Angel Moreno MD at [facility] OR ? ? PRO EXC SKIN MALIG >4CM TRUNK, ARM, LEG 04/19/2012 EXC MALIGNANT LESION, MICHAEL > 4.0CM, TRUNK performed by SABRINA MEDRANO at [facility] OR ??? PRO LAP, RADICAL NEPHRECTOMY Left 05/31/2017 @LAPAROSCOPY, RADICAL NEPHRECTOMY (WRVU 25.06) performed by Jax Mills MD at [facility] MAIN OR ??? PRO REBL VES GRAFT, UP EXTREM Left 04/06/2018 REPAIR BLOOD VESSEL WITH GRAFT OTHER THAN VEIN, UPPER EXTREMITY (WRVU 15.83) performed by Lida Peter MD at [facility] MAIN OR ??? PRO RELIEVE PRESSURE ON NERVE(S) Left 04/06/2018 (MSURG) CARPAL TUNNEL (WRVU 4.82) performed by Hay Sparks MD at [facility] MAIN OR ??? PRO REPAIR INTERMEDIATE S/A/T/E 2.6-7.5 CM 04/19/2012 REPAIR INTERMEDIATE WOUND, (NO HANDS OR FEET) 2.6 TO 7.5CM, UPPER EXTREMITY performed by SABRINA MEDRANO at [facility] MAIN OR ??? PRO REVISE MEDIAN N/CARPAL TUNNEL SURG Left 04/06/2018 MEDIAN NERVE DECOMPRESSION (CARPAL TUNNEL RELEASE) (WRVU 4.97) performed by Lida Peter MD [facility] MAIN OR ? ? PRO SPLIT GRFT, HEAD, FAC, HAND, FEET <100SQCM N/A 02/20/2016 SPLIT THICKNESS SKIN SPLIT GRAFT,100SQ CM OR LESS, NECK performed by Miguel Angel Moreno MD at [facility] MAIN OR ??? PRO UPPER GI ENDOSCOPY, BIOPSY N/A 05/13/2017 EGD WITH BIOPSY (WRVU 2.49) performed by Aditya Barrera MD at [facility] ENDOSCOPY ??? PRO VASCULAR SURGERY PROCEDURE UNLIST Left 11/20/2015 LIGATION\REPAIR AV FISTULA performed by Camilo Ireland MD at [facility] MAIN OR ??? PRO VASCULAR SURGERY PROCEDURE UNLIST Left 11/20/2015 EXCISION VEIN FROM HAND performed by Camilo Ireland MD at [facility] MAIN OR ??? 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 [...] extension 5/5 R, Elbow flexion 5/5 R Engagement Executive LE: 5/5 R, 5/5 L Hip flexion [...] Decreased RBC Morphology Abnormal Ovalocytes 1-5 /HPF Niles Cells 1-5 /HPF BLOOD GAS 2 ARTERIAL [...] 04/07/2018 Neurology resident, PGY-3 Vascular Neurology Pager [phone] Standard [facility] Swallow Screen: This screen is to be [...] diet as medical provider deems appropriate. Consider CORPORATE EVENTS DIRECTOR consult for full evaluation and diet recommendations. 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 to [facility] on 04/06/18 for hemorrhagic shock status post PEA Cardiac arrest secondary to AV fistula bleeding. Apparently patient was found at his home unresponsive and was pulseless requiring several rounds of chest compressions,epinephrine and IV fluid bolus with a return of spontaneous circulation.Intubated in the field and taken to [facility] received 6 units of the PRBCs,2 FFPs for hemoglobin of 4 and required 2 tourniquets for his AV fistula leaking. Transferred to [facility] and was taken to OR by vascular [...] performed by Miguel Angel Moreno MD at [facility] MAIN OR ??? PRO EXC PAROTD, TOTAL, UNILAT RAD NECK Left 02/05/2016 @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, TOTAL, WITH UNILATERAL RADICAL NECK DISSECTION performed by Miguel Angel Moreno MD at [facility] MAIN OR ??? PRO EXC SKIN MALIG 3.1-4CM FACE, FACIAL Left 02/05/2016 EXC MALIGNANT LESION, 3.1 TO 4.0CM, FACE performed by Miguel Angel Moreno MD at [facility] MAIN OR ? ? PRO EXC SKIN MALIG >4CM TRUNK, ARM, LEG 04/19/2012 EXC MALIGNANT LESION, MICHAEL > 4.0CM, TRUNK performed by SABRINA MEDRANO at [facility] MAIN OR ??? PRO LAP, RADICAL NEPHRECTOMY Left 05/31/2017 @LAPAROSCOPY, RADICAL NEPHRECTOMY (WRVU 25.06) performed by Jax Mills MD at [facility] MAIN OR ??? PRO REPAIR INTERMEDIATE S/A/T/E 2.6-7.5 CM 04/19/2012 REPAIR INTERMEDIATE WOUND, (NO HANDS OR FEET) 2.6 TO 7.5CM, UPPER EXTREMITY performed by SABRINA MEDRANO at [facility] MAIN OR ? ? PRO SPLIT GRFT, HEAD, FAC, HAND, FEET <100SQCM N/A 02/20/2016 SPLIT THICKNESS SKIN SPLIT GRAFT,100SQ CM OR LESS, NECK performed by Miguel Angel Moreno MD at [facility] MAIN OR ??? PRO UPPER GI ENDOSCOPY, BIOPSY N/A 05/13/2017 EGD WITH BIOPSY (WRVU 2.49) performed by Aditya Barrera MD at [facility] ENDOSCOPY ??? PRO VASCULAR SURGERY PROCEDURE UNLIST Left 11/20/2015 LIGATION\REPAIR AV FISTULA performed by Camilo Ireland MD at [facility] MAIN OR ??? PRO VASCULAR SURGERY PROCEDURE UNLIST Left 11/20/2015 EXCISION VEIN FROM HAND performed by Camilo Ireland MD at [facility] MAIN OR ??? US RENAL TRANSPLANT [...] Latest Ref Range: Clear Hazy (A) Spec Thornton UA Latest Ref Range: 1.002 - 1.030 [...] w/ Dr.Chobanian Radha Hughes MD Nephrology Fellow #[id number] * Op Note - Bhargavi Junior MD - 04/07/2018 7:56 AM EDT [facility] Operative Note Patient Name: Christy Ambrose : [id number] MR#: [id number] Case Date: 04/06/2018 Surgeon: Surgeon(s) and Role: [...] he was found down. He presented to [facility] in hemorrhagic shock with 2 tourniquets on [...] Implant Name Type Inv. Item Serial No. Spray Painting Machine Operator Lot No. LRB No. Used Action PATCH,BIOL,XENOSURE,.8X8CM ([id number]) - [id number] IMPLANTS PATCH,BIOL,XENOSURE,.8X8CM ([id number]) 0 [facility] [id number] Implanted Infection Bundle used? No, ancef [...] Operative Note Patient Name: Christy Ambrose : [id number] MR#: [id number] Case Date: 04/06/2018 Surgeon: Surgeon(s) and Role: [...] Sparks MD - 04/06/2018 4:00 PM EDT [facility] Operative Note Patient Name: Christy Ambrose : [id number] MR#: [id number] Case Date: 04/06/2018 Surgeon: Surgeon(s) and Role: [...] 04/26/2018 11:42 AM EDT TYPE AND SCREEN ([facility]) STAT 04/26/2018 11:42 AM EDT MODIFIER WOUND [...] Routine 04/07/2018 5:56 AM EDT CARDIAC ENZYMES ([facility]) Routine 04/07/2018 5:55 AM EDT HEMOGLOBIN AND [...] IMPLANTABLE DEVICES SCAN 04/06/2018 12:00 AM EDT WATER TESTER SCAN 04/06/2018 12:00 AM EDT FILM LIBRARY STORAGE ONLY CT HEAD AND SPINE STAT 04/06/2018 12:00 AM EDT documented in this encounter Results * (ABNORMAL) Basic Metabolic Panel (non-fasting) (05/04/2018 3:00 AM EDT) Glucose 100 65 - 199 mg/dL [facility] Comment:Diabetes: >=200 mg/d L plus symptoms Blood Urea Nitrogen 40(H) 10 - 20 mg/dL [facility] Creatinine 3.05(H) 0.80 - 1.50 mg/dL [facility] Sodium 131(L) 135 - 145 mmol/L [facility] Potassium 4.1 3.5 - 5.0 mmol/L [facility] Comment: Please note: ??Patients with WBC >100,000 may have falsely elevated Potassium levels. ??For accurate Potassium quantification in these patients send serum separator tube (gold top) for subsequent determinations. ??Contact the Clinical Chemistry Laboratory if there are any questions. Chloride 99 98 - 107 mmol/L [facility] Carbon Dioxide 19(L) 22 - 31 mmol/L [facility] Anion Gap 13 5 - 15 mmol/L [facility] Calcium 8.0(L) 8.5 - 10.5 mg/dL [facility] Est Glomerular Filtration Rate 22(L) >=60 mL/min/1. 73 m?? [facility] Comment: The eGFR was calculated using the CKD-EPI equation. As with all creatinine based estimates of kidney function, eGFR values calculated with the CKD-EPI equation are not accurate in patients with acute kidney failure, extremes of body mass or the acutely ill. [email or web address] eGFR 25(L) >=60 mL/min/1. 73 m?? [facility] Comment: The eGFR was calculated using the CKD-EPI equation. As with all creatinine based estimates of kidney function, eGFR values calculated with the CKD-EPI equation are not accurate in patients with acute kidney failure, extremes of body mass or the acutely ill. [email or web address] Blood specimen (specimen) 05/04/2018 3:00 AM EDT 05/04/2018 3:08 AM EDT Narrative Resulting Agency Comment Spec In Lab Hay Sparks MD CHEMISTRY ORDERABLES Performing Organization Address [facility] de Phone Number [facility] [place] [address] * Vancomycin, trough (05/03/2018 6:40 PM EDT) Pathologist [facility] Vancomycin, Trough 14.2 mg/L [facility] Comment: Therapeutic range for complicated [...] Sparks MD CHEMISTRY ORDERABLES Performing Organization Address [facility] de Phone Number [facility] [place] [address] * Differential, Automated (05/03/2018 3:06 AM EDT) Neutrophil % 60.8 % [facility] Neutrophil Absolute 3.01 1.70 - 6.10 x10(3)/[facility] Lymph % 19.8 % [facility] Lymphocytes Abs 1.0 0.9 - 3.2 x10(3)/[facility] Monocyte % 10.7 % [facility] Monocyte Abs 0.5 0.3 - 0.9 x10(3)/[facility] Eos % 8.1 % [facility] Eosinophils Abs 0.4 0.0 - 0.4 x10(3)/[facility] Basophil % 0.4 % [facility] Baso Absolute 0.0 0.0 - 0.1 x10(3)/[facility] Immature Gran % 0.20 % [facility] Comment: Immature granulocytes(IG's)percentage and absolute count will include metamyelocytes, myelocytes, and promyelocytes. Blood smears from CBCs yielding IG's will be scanned manually for concordance. If this scan disagrees with the automated IG or if promyelocytes are noted, a manual differential will be performed. Immature Gran Absolute 0.01 0.00 - 0.04 x10(3)/[facility] Blood specimen (specimen) 05/03/2018 3:06 AM EDT 05/03/2018 3:16 AM EDT Narrative Resulting Agency Comment Spec In Lab Apple Gutierrez MD HEMATOLOGY ORDERABLE S [facility] [place] [address] * (ABNORMAL) Hemogram (05/03/2018 3:06 AM EDT) White Blood Cell 5.0 4.0 - 9.5 x10(3)/mc L [facility] Red Blood Cell 2.64(L) 4.58 - 5.54 x10(6)/mc L [facility] Hemoglobin 8.2(L) 13.7 - 16.5 gm/dL [facility] Hematocrit 25.1(L) 40.5 - 48.5 % [facility] Mean Cell Volume 95.1(H) 82.9 - 93.1 fL [facility] Mean Cell Hemoglobin 31.1 27.5 - 32.1 pg [facility] Mean Cell Hemoglobin Concentration 32.7 32.0 - 35.7 gm/dL [facility] Platelet 160 145 - 357 x10(3)/mc L [facility] RDW Standard Deviation 54.3(H) 36.0 - 45.0 fL [facility] RDW coefficient of variation 15.6(H) 11.4 - 13.8 % [facility] Mean Platelet Volume 9.0 7.6 - 12.9 fL [facility] NRBC% auto 0.0 % [facility] NRBC Absolute 0.000 0.000 - 0.000 x10(3)/mc L [facility] Blood specimen (specimen) 05/03/2018 3:06 AM EDT 05/03/2018 3:16 AM EDT Narrative Resulting Agency Comment Spec In Lab Apple Gutierrez MD HEMATOLOGY ORDERABLE S [facility] [place] [id number] * (ABNORMAL) Basic Metabolic Panel (non-fasting) (05/03/2018 3:06 AM EDT) Glucose 99 65 - 199 mg/dL [facility] Comment:Diabetes: >=200 mg/d L plus symptoms Blood Urea Nitrogen 35(H) 10 - 20 mg/dL [facility] Creatinine 2.58(H) 0.80 - 1.50 mg/dL [facility] Sodium 135 135 - 145 mmol/L [facility] Potassium 4.2 3.5 - 5.0 mmol/L [facility] Comment: Please note: ??Patients with WBC >100,000 may have falsely elevated Potassium levels. ??For accurate Potassium quantification in these patients send serum separator tube (gold top) for subsequent determinations. ??Contact the Clinical Chemistry Laboratory if there are any questions. Chloride 101 98 - 107 mmol/L [facility] Carbon Dioxide 20(L) 22 - 31 mmol/L [facility] Anion Gap 14 5 - 15 mmol/L [facility] Calcium 7.9(L) 8.5 - 10.5 mg/dL [facility] Est Glomerular Filtration Rate 27(L) >=60 mL/min/1. 73 m?? [facility] Comment: The eGFR was calculated using the CKD-EPI equation. As with all creatinine based estimates of kidney function, eGFR values calculated with the CKD-EPI equation are not accurate in patients with acute kidney failure, extremes of body mass or the acutely ill. [email or web address] eGFR 31(L) >=60 mL/min/1. 73 m?? [facility] Comment: The eGFR was calculated using the CKD-EPI equation. As with all creatinine based estimates of kidney function, eGFR values calculated with the CKD-EPI equation are not accurate in patients with acute kidney failure, extremes of body mass or the acutely ill. [email or web address] Blood specimen (specimen) 05/03/2018 3:06 AM EDT 05/03/2018 3:16 AM EDT Narrative Resulting Agency Comment Spec In Lab Hay Sparks MD CHEMISTRY ORDERABLES [facility] [place] [address] * Differential, Automated (05/02/2018 3:20 AM EDT) Neutrophil % 60.2 % [facility] Neutrophil Absolute 2.89 1.70 - 6.10 x10(3)/[facility] Lymph % 20.8 % [facility] Lymphocytes Abs 1.0 0.9 - 3.2 x10(3)/[facility] Monocyte % 9.2 % [facility] Monocyte Abs 0.4 0.3 - 0.9 x10(3)/[facility] Eos % 8.8 % [facility] Eosinophils Abs 0.4 0.0 - 0.4 x10(3)/[facility] Basophil % 0.6 % [facility] Baso Absolute 0.0 0.0 - 0.1 x10(3)/[facility] Immature Gran % 0.40 % [facility] Comment: Immature granulocytes(IG's)percentage and absolute count will include metamyelocytes, myelocytes, and promyelocytes. Blood smears from CBCs yielding IG's will be scanned manually for concordance. If this scan disagrees with the automated IG or if promyelocytes are noted, a manual differential will be performed. Immature Gran Absolute 0.02 0.00 - 0.04 x10(3)/[facility] Blood specimen (specimen) 05/02/2018 3:20 AM EDT 05/02/2018 3:26 AM EDT Narrative Resulting Agency Comment Spec In Lab Apple Gutierrez MD HEMATOLOGY ORDERABLE S [facility] [place] [address] * (ABNORMAL) Hemogram (05/02/2018 3:20 AM EDT) White Blood Cell 4.8 4.0 - 9.5 x10(3)/mc L [facility] Red Blood Cell 2.61(L) 4.58 - 5.54 x10(6)/mc L [facility] Hemoglobin 8.2(L) 13.7 - 16.5 gm/dL [facility] Hematocrit 24.6(L) 40.5 - 48.5 % [facility] Mean Cell Volume 94.3(H) 82.9 - 93.1 fL [facility] Mean Cell Hemoglobin 31.4 27.5 - 32.1 pg [facility] Mean Cell Hemoglobin Concentration 33.3 32.0 - 35.7 gm/dL [facility] Platelet 168 145 - 357 x10(3)/mc L [facility] RDW Standard Deviation 54.4(H) 36.0 - 45.0 fL [facility] RDW coefficient of variation 15.5(H) 11.4 - 13.8 % [facility] Mean Platelet Volume 8.7 7.6 - 12.9 fL [facility] NRBC% auto 0.0 % [facility] NRBC Absolute 0.000 0.000 - 0.000 x10(3)/mc L [facility] Blood specimen (specimen) 05/02/2018 3:20 AM EDT 05/02/2018 3:26 AM EDT Narrative Resulting Agency Comment Spec In Lab Apple Gutierrez MD HEMATOLOGY ORDERABLE S Performing Organization Address City/State/[facility] Co de Phone Number [facility] [place] [address] * (ABNORMAL) Basic Metabolic Panel (non-fasting) (05/02/2018 3:20 AM EDT) Glucose 94 65 - 199 mg/dL [facility] Comment:Diabetes: >=200 mg/d L plus symptoms Blood Urea Nitrogen 38(H) 10 - 20 mg/dL [facility] Creatinine 2.73(H) 0.80 - 1.50 mg/dL [facility] Sodium 135 135 - 145 mmol/L [facility] Potassium 4.3 3.5 - 5.0 mmol/L [facility] Comment: Please note: ??Patients with WBC >100,000 may have falsely elevated Potassium levels. ??For accurate Potassium quantification in these patients send serum separator tube (gold top) for subsequent determinations. ??Contact the Clinical Chemistry Laboratory if there are any questions. Chloride 103 98 - 107 mmol/L [facility] Carbon Dioxide 19(L) 22 - 31 mmol/L [facility] Anion Gap 13 5 - 15 mmol/L [facility] Calcium 7.7(L) 8.5 - 10.5 mg/dL [facility] Est Glomerular Filtration Rate 25(L) >=60 mL/min/1. 73 m?? [facility] Comment: The eGFR was calculated using the CKD-EPI equation. As with all creatinine based estimates of kidney function, eGFR values calculated with the CKD-EPI equation are not accurate in patients with acute kidney failure, extremes of body mass or the acutely ill. [email or web address] eGFR 29(L) >=60 mL/min/1. 73 m?? [facility] Comment: The eGFR was calculated using the CKD-EPI equation. As with all creatinine based estimates of kidney function, eGFR values calculated with the CKD-EPI equation are not accurate in patients with acute kidney failure, extremes of body mass or the acutely ill. [email or web address] Blood specimen (specimen) 05/02/2018 3:20 AM EDT 05/02/2018 3:25 AM EDT Narrative Resulting Agency Comment Spec In Lab Hay Sparks MD CHEMISTRY ORDERABLES [facility] [place] [address] * Differential, Automated (05/01/2018 4:00 AM EDT) Neutrophil % 60.0 % [facility] Neutrophil Absolute 2.98 1.70 - 6.10 x10(3)/[facility] Lymph % 21.2 % [facility] Lymphocytes Abs 1.0 0.9 - 3.2 x10(3)/[facility] Monocyte % 9.7 % [facility] Monocyte Abs 0.5 0.3 - 0.9 x10(3)/[facility] Eos % 8.1 % [facility] Eosinophils Abs 0.4 0.0 - 0.4 x10(3)/[facility] Basophil % 0.8 % [facility] Baso Absolute 0.0 0.0 - 0.1 x10(3)/[facility] Immature Gran % 0.20 % [facility] Comment: Immature granulocytes(IG's)percentage and absolute count will include metamyelocytes, myelocytes, and promyelocytes. Blood smears from CBCs yielding IG's will be scanned manually for concordance. If this scan disagrees with the automated IG or if promyelocytes are noted, a manual differential will be performed. Immature Gran Absolute 0.01 0.00 - 0.04 x10(3)/[facility] Blood specimen (specimen) 05/01/2018 4:00 AM EDT 05/01/2018 4:13 AM EDT Narrative Resulting Agency Comment Spec In Lab Apple Gutierrez MD HEMATOLOGY ORDERABLE S [facility] [place] [address] * (ABNORMAL) Hemogram (05/01/2018 4:00 AM EDT) White Blood Cell 5.0 4.0 - 9.5 x10(3)/mc L [facility] Red Blood Cell 2.71(L) 4.58 - 5.54 x10(6)/mc L [facility] Hemoglobin 8.2(L) 13.7 - 16.5 gm/dL [facility] Hematocrit 25.6(L) 40.5 - 48.5 % [facility] Mean Cell Volume 94.5(H) 82.9 - 93.1 fL [facility] Mean Cell Hemoglobin 30.3 27.5 - 32.1 pg [facility] Mean Cell Hemoglobin Concentration 32.0 32.0 - 35.7 gm/dL [facility] Platelet 192 145 - 357 x10(3)/mc L [facility] RDW Standard Deviation 53.5(H) 36.0 - 45.0 fL [facility] RDW coefficient of variation 15.5(H) 11.4 - 13.8 % [facility] Mean Platelet Volume 8.9 7.6 - 12.9 fL [facility] NRBC% auto 0.0 % [facility] NRBC Absolute 0.000 0.000 - 0.000 x10(3)/mc L [facility] Blood specimen (specimen) 05/01/2018 4:00 AM EDT 05/01/2018 4:13 AM EDT Narrative Resulting Agency Comment Spec In Lab Apple Gutierrez MD HEMATOLOGY ORDERABLE S [facility] [place] [address] * (ABNORMAL) Basic Metabolic Panel (non-fasting) (05/01/2018 4:00 AM EDT) Glucose 101 65 - 199 mg/dL [facility] Comment:Diabetes: >=200 mg/d L plus symptoms Blood Urea Nitrogen 36(H) 10 - 20 mg/dL [facility] Creatinine 2.66(H) 0.80 - 1.50 mg/dL [facility] Sodium 134(L) 135 - 145 mmol/L [facility] Potassium 3.9 3.5 - 5.0 mmol/L [facility] Comment: Please note: ??Patients with WBC >100,000 may have falsely elevated Potassium levels. ??For accurate Potassium quantification in these patients send serum separator tube (gold top) for subsequent determinations. ??Contact the Clinical Chemistry Laboratory if there are any questions. Chloride 101 98 - 107 mmol/L [facility] Carbon Dioxide 19(L) 22 - 31 mmol/L [facility] Anion Gap 14 5 - 15 mmol/L [facility] Calcium 8.0(L) 8.5 - 10.5 mg/dL [facility] Est Glomerular Filtration Rate 26(L) >=60 mL/min/1. 73 m?? [facility] Comment: The eGFR was calculated using the CKD-EPI equation. As with all creatinine based estimates of kidney function, eGFR values calculated with the CKD-EPI equation are not accurate in patients with acute kidney failure, extremes of body mass or the acutely ill. [email or web address] eGFR 30(L) >=60 mL/min/1. 73 m?? [facility] Comment: The eGFR was calculated using the CKD-EPI equation. As with all creatinine based estimates of kidney function, eGFR values calculated with the CKD-EPI equation are not accurate in patients with acute kidney failure, extremes of body mass or the acutely ill. [email or web address] Blood specimen (specimen) 05/01/2018 4:00 AM EDT 05/01/2018 4:13 AM EDT Narrative Resulting Agency Comment Spec In Lab Hay Sparks MD CHEMISTRY ORDERABLES Performing Organization Address [facility] Co de Phone Number [facility] [place] [address] * Vancomycin, trough (04/30/2018 7:05 PM EDT) [facility] Vancomycin, Trough 15.3 mg/L [facility] [...] Organization Address City/[facility]/ZIP Co de Phone Number [facility] [place] [address] * Differential, Automated (04/30/2018 2:55 AM EDT) Pathologist [facility] [place] Neutrophil % 60.3 % [facility] Neutrophil Absolute 3.15 1.70 - 6.10 x10(3)/[facility] Lymph % 22.8 % [facility] Lymphocytes Abs 1.2 0.9 - 3.2 x10(3)/[facility] Monocyte % 10.2 % [facility] Monocyte Abs 0.5 0.3 - 0.9 x10(3)/[facility] Eos % 5.7 % [facility] Eosinophils Abs 0.3 0.0 - 0.4 x10(3)/[facility]OR[facility] Basophil % 0.6 % [facility] Baso Absolute 0.0 0.0 - 0.1 x10(3)/[facility]ORATORY Immature Gran % 0.40 % [facility] Comment: Immature granulocytes(IG's)percentage and absolute count will include metamyelocytes, myelocytes, and promyelocytes. Blood smears from CBCs yielding IG's will be scanned manually for concordance. If this scan disagrees with the automated IG or if promyelocytes are noted, a manual differential will be performed. Immature Gran Absolute 0.02 0.00 - 0.04 x10(3)/[facility] LABORATORY Blood specimen (specimen) 04/30/2018 2:55 AM EDT 04/30/2018 3:06 AM EDT Narrative Resulting Agency Comment Spec In Lab Apple Gutierrez MD HEMATOLOGY ORDERABLE S [facility] [place] [address] * (ABNORMAL) Hemogram (04/30/2018 2:55 AM EDT) Pathologist [facility] [place] White Blood Cell 5.2 4.0 - 9.5 x10(3)/ L [facility] Red Blood Cell 2.53(L) 4.58 - 5.54 x10(6)/mc L [facility] Hemoglobin 7.9(L) 13.7 - 16.5 gm/dL [facility] Hematocrit 24.3(L) 40.5 - 48.5 % [facility] Mean Cell Volume 96.0(H) 82.9 - 93.1 fL [facility] Mean Cell Hemoglobin 31.2 27.5 - 32.1 pg [facility] Mean Cell Hemoglobin Concentration 32.5 32.0 - 35.7 gm/dL [facility] Platelet 186 145 - 357 x10(3)/mc L [facility] RDW Standard Deviation 54.7(H) 36.0 - 45.0 [facility] RDW coefficient of variation 15.6(H) 11.4 - 13.8 % [facility] Mean Platelet Volume 8.7 7.6 - 12.9 [facility] NRBC% auto 0.0 % [facility] NRBC Absolute 0.000 0.000 - 0.000 x10(3)/mc L [facility] Blood specimen (specimen) 04/30/2018 2:55 AM EDT 04/30/2018 3:06 AM EDT Narrative Resulting Agency Comment Spec In Lab Apple Gutierrez MD HEMATOLOGY ORDERABLE S [facility] [place] [address] * (ABNORMAL) Basic Metabolic Panel (non-fasting) (04/30/2018 2:55 AM EDT) Glucose 96 65 - 199 mg/dL [facility] Comment:Diabetes: >=200 mg/d L plus symptoms Blood Urea Nitrogen 39(H) 10 - 20 mg/dL [facility] Creatinine 2.94(H) 0.80 - 1.50 mg/dL [facility] Sodium 135 135 - 145 mmol/L [facility] Potassium 4.5 3.5 - 5.0 mmol/L [facility] Comment: Please note: ??Patients with WBC >100,000 may have falsely elevated Potassium levels. ??For accurate Potassium quantification in these patients send serum separator tube (gold top) for subsequent determinations. ??Contact the Clinical Chemistry Laboratory if there are any questions. Chloride 100 98 - 107 mmol/L [facility] Carbon Dioxide 21(L) 22 - 31 mmol/L [facility] Anion Gap 14 5 - 15 mmol/L [facility] Calcium 8.1(L) 8.5 - 10.5 mg/dL [facility] Est Glomerular Filtration Rate 23(L) >=60 mL/min/1. 73 m?? [facility] Comment: The eGFR was calculated using the CKD-EPI equation. As with all creatinine based estimates of kidney function, eGFR values calculated with the CKD-EPI equation are not accurate in patients with acute kidney failure, extremes of body mass or the acutely ill. [email or web address] eGFR 26(L) >=60 mL/min/1. 73 m?? [facility] Comment: The eGFR was calculated using the CKD-EPI equation. As with all creatinine based estimates of kidney function, eGFR values calculated with the CKD-EPI equation are not accurate in patients with acute kidney failure, extremes of body mass or the acutely ill. [email or web address] Blood specimen (specimen) 04/30/2018 2:55 AM EDT 04/30/2018 3:06 AM EDT Narrative Resulting Agency Comment Spec In Lab Hay Sparks MD CHEMISTRY ORDERABLES [facility] [place] [address] * Vancomycin, trough (04/29/2018 5:15 PM EDT) Vancomycin, Trough 15.9 mg/L [facility] Comment: Therapeutic range [...] MD CHEMISTRY ORDERAB LES Performing Organization Address [facility] Co de Phone Number [facility] [place] [address] * Vancomycin, trough (04/29/2018 6:55 AM EDT) Vancomycin, Trough 19.5 mg/L [facility] Comment: Therapeutic range for complicated [...] Organization Address City/[facility]/ZIP Co de Phone Number [facility] [place] [address] * Differential, Automated (04/29/2018 5:40 AM EDT) Neutrophil % 63.0 % [facility] Neutrophil Absolute 3.22 1.70 - 6.10 x10(3)/mcL [facility] Lymph % 21.1 % [facility] Lymphocytes Abs 1.1 0.9 - 3.2 x10(3)/[facility] Monocyte % 9.0 % [facility] Monocyte Abs 0.5 0.3 - 0.9 x10(3)/[facility] Eos % 5.5 % [facility] Eosinophils Abs 0.3 0.0 - 0.4 x10(3)/[facility] Basophil % 0.8 % [facility] Baso Absolute 0.0 0.0 - 0.1 x10(3)/[facility] Immature Gran % 0.60 % [facility] Comment: Immature granulocytes(IG's)percentage and absolute count will include metamyelocytes, myelocytes, and promyelocytes. Blood smears from CBCs yielding IG's will be scanned manually for concordance. If this scan disagrees with the automated IG or if promyelocytes are noted, a manual differential will be performed. Immature Gran Absolute 0.03 0.00 - 0.04 x10(3)/[facility] Blood specimen (specimen) 04/29/2018 5:40 AM EDT 04/29/2018 6:11 AM EDT Narrative Resulting Agency Comment Spec In Lab Apple Gutierrez MD HEMATOLOGY ORDERABLE S [facility] [place] [address] * (ABNORMAL) Hemogram (04/29/2018 5:40 AM EDT) White Blood Cell 5.1 4.0 - 9.5 x10(3)/[facility] Red Blood Cell 2.56(L) 4.58 - 5.54 x10(6)/ L [facility] Hemoglobin 7.7(L) 13.7 - 16.5 gm/dL [facility] Hematocrit 24.2(L) 40.5 - 48.5 % [facility] Mean Cell Volume 94.5(H) 82.9 - 93.1 fL [facility] Mean Cell Hemoglobin 30.1 27.5 - 32.1 pg [facility] Mean Cell Hemoglobin Concentration 31.8(L) 32.0 - 35.7 gm/dL [facility] Platelet 216 145 - 357 x10(3)/mc L [facility] RDW Standard Deviation 53.7(H) 36.0 - 45.0 fL [facility] RDW coefficient of variation 15.4(H) 11.4 - 13.8 % [facility] Mean Platelet Volume 8.9 7.6 - 12.9 fL [facility] NRBC% auto 0.0 % [facility] NRBC Absolute 0.000 0.000 - 0.000 x10(3)/mc L [facility] Blood specimen (specimen) 04/29/2018 5:40 AM EDT 04/29/2018 6:11 AM EDT Narrative Resulting Agency Comment Spec In Lab Apple Gutierrez MD HEMATOLOGY ORDERABLE S [facility] [place] [address] * (ABNORMAL) Basic Metabolic Panel (non-fasting) (04/29/2018 5:40 AM EDT) Glucose 91 65 - 199 mg/dL [facility] Comment:Diabetes: >=200 mg/d L plus symptoms Blood Urea Nitrogen 41(H) 10 - 20 mg/dL [facility] Creatinine 2.51(H) 0.80 - 1.50 mg/dL [facility] Sodium 136 135 - 145 mmol/L [facility] Potassium 4.9 3.5 - 5.0 mmol/L [facility] Comment: Please note: ??Patients with WBC >100,000 may have falsely elevated Potassium levels. ??For accurate Potassium quantification in these patients send serum separator tube (gold top) for subsequent determinations. ??Contact the Clinical Chemistry Laboratory if there are any questions. Chloride 104 98 - 107 mmol/L [facility] Carbon Dioxide 21(L) 22 - 31 mmol/L [facility] Anion Gap 11 5 - 15 mmol/L [facility] Calcium 8.0(L) 8.5 - 10.5 mg/dL [facility] Est Glomerular Filtration Rate 28(L) >=60 mL/min/1. 73 m?? [facility] Comment: The eGFR was calculated using the CKD-EPI equation. As with all creatinine based estimates of kidney function, eGFR values calculated with the CKD-EPI equation are not accurate in patients with acute kidney failure, extremes of body mass or the acutely ill. [email or web address] eGFR 32(L) >=60 mL/min/1. 73 m?? [facility] Comment: The eGFR was calculated using the CKD-EPI equation. As with all creatinine based estimates of kidney function, eGFR values calculated with the CKD-EPI equation are not accurate in patients with acute kidney failure, extremes of body mass or the acutely ill. [email or web address] Blood specimen (specimen) 04/29/2018 5:40 AM EDT 04/29/2018 6:11 AM EDT Narrative Resulting Agency Comment Spec In Lab Hay Sparks MD CHEMISTRY ORDERABLES Performing Organization Address City/State/[facility] Co de Phone Number [facility] [place] [address] * (ABNORMAL) Vancomycin, trough (04/28/2018 1:09 PM EDT) Vancomycin, Trough 21.6(Crit ical) mg/L [facility] Comment: Called by: MASSIEL, Read [...] Sparks MD CHEMISTRY ORDERABLES Performing Organization Address [facility] Co de Phone Number [facility] [place] [phone] * EKG 12 Lead (04/28/2018 7:17 AM EDT) Ventricular rate 51 BPM MUSE SYSTEM Atrial Rate 51 BPM MUSE SYSTEM P-R Interval 162 ms MUSE SYSTEM QRS Duration 92 ms MUSE SYSTEM Q-T Interval 442 ms MUSE SYSTEM QTC Calculated (Bezet) 407 ms MUSE SYSTEM Calculated P [place] 59 degrees MUSE SYSTEM Calculated R [place] 35 degrees MUSE SYSTEM Calculated T [place] 34 degrees MUSE SYSTEM INTERPRETATION Sinus bradycardia Otherwise normal ECG When compared with ECG of 26-MAY-2017 11:16, No significant change was found Confirmed by MD Aure, Sukumar Rubi ([id number]) on 04/29/2018 1:34:03 PM MUSE SYSTEM 04/28/2018 7:17 AM EDT 04/29/2018 1:34 PM EDT Chase Olvera MD ECG ORDERABLES Performing Organization Address [facility] de Phone Number MUSE SYSTEM * Differential, Automated (04/28/2018 4:40 AM EDT) Neutrophil % 66.6 % [facility] Neutrophil Absolute 4.11 1.70 - 6.10 x10(3)/[facility] Lymph % 23.5 % [facility] Lymphocytes Abs 1.4 0.9 - 3.2 x10(3)/[facility] Monocyte % 7.8 % [facility] Monocyte Abs 0.5 0.3 - 0.9 x10(3)/[facility] Eos % 1.5 % [facility] Eosinophils Abs 0.1 0.0 - 0.4 x10(3)/[facility] Basophil % 0.3 % [facility] Baso Absolute 0.0 0.0 - 0.1 x10(3)/[facility] Immature Gran % 0.30 % [facility] Comment: Immature granulocytes(IG's)percentage and absolute count will include metamyelocytes, myelocytes, and promyelocytes. Blood smears from CBCs yielding IG's will be scanned manually for concordance. If this scan disagrees with the automated IG or if promyelocytes are noted, a manual differential will be performed. Immature Gran Absolute 0.02 0.00 - 0.04 x10(3)/[facility] Blood specimen (specimen) 04/28/2018 4:40 AM EDT 04/28/2018 4:53 AM EDT Narrative Resulting Agency Comment Spec In Lab Apple Gutierrez MD HEMATOLOGY ORDERABLE S [facility] [place] [address] * (ABNORMAL) Hemogram (04/28/2018 4:40 AM EDT) White Blood Cell 6.2 4.0 - 9.5 x10(3)/mc L [facility] Red Blood Cell 2.54(L) 4.58 - 5.54 x10(6)/mc L [facility] Hemoglobin 7.6(L) 13.7 - 16.5 gm/dL [facility] Hematocrit 24.3(L) 40.5 - 48.5 % [facility] Mean Cell Volume 95.7(H) 82.9 - 93.1 fL [facility] Mean Cell Hemoglobin 29.9 27.5 - 32.1 pg [facility] Mean Cell Hemoglobin Concentration 31.3(L) 32.0 - 35.7 gm/dL [facility] Platelet 249 145 - 357 x10(3)/mc L [facility] RDW Standard Deviation 55.3(H) 36.0 - 45.0 fL [facility] RDW coefficient of variation 15.6(H) 11.4 - 13.8 % [facility] Mean Platelet Volume 8.7 7.6 - 12.9 fL [facility] NRBC% auto 0.0 % [facility] NRBC Absolute 0.000 0.000 - 0.000 x10(3)/mc L [facility] Blood specimen (specimen) 04/28/2018 4:40 AM EDT 04/28/2018 4:53 AM EDT Narrative Resulting Agency Comment Spec In Lab Apple Gutierrez MD HEMATOLOGY ORDERABLE S Performing Organization Address City/State/[facility] Co de Phone Number [facility] [place] [address] * (ABNORMAL) Basic Metabolic Panel (non-fasting) (04/28/2018 4:40 AM EDT) Glucose 94 65 - 199 mg/dL [facility] Comment:Diabetes: >=200 mg/d L plus symptoms Blood Urea Nitrogen 44(H) 10 - 20 mg/dL [facility] Creatinine 2.80(H) 0.80 - 1.50 mg/dL [facility] Sodium 133(L) 135 - 145 mmol/L [facility] Potassium 4.9 3.5 - 5.0 mmol/L [facility] Comment: Please note: ??Patients with WBC >100,000 may have falsely elevated Potassium levels. ??For accurate Potassium quantification in these patients send serum separator tube (gold top) for subsequent determinations. ??Contact the Clinical Chemistry Laboratory if there are any questions. Chloride 101 98 - 107 mmol/L [facility] Carbon Dioxide 20(L) 22 - 31 mmol/L [facility] Anion Gap 12 5 - 15 mmol/L [facility] Calcium 8.1(L) 8.5 - 10.5 mg/dL [facility] Est Glomerular Filtration Rate 24(L) >=60 mL/min/1. 73 m?? [facility] Comment: The eGFR was calculated using the CKD-EPI equation. As with all creatinine based estimates of kidney function, eGFR values calculated with the CKD-EPI equation are not accurate in patients with acute kidney failure, extremes of body mass or the acutely ill. [email or web address] eGFR 28(L) >=60 mL/min/1. 73 m?? [facility] Comment: The eGFR was calculated using the CKD-EPI equation. As with all creatinine based estimates of kidney function, eGFR values calculated with the CKD-EPI equation are not accurate in patients with acute kidney failure, extremes of body mass or the acutely ill. [email or web address] Blood specimen (specimen) 04/28/2018 4:40 AM EDT 04/28/2018 4:53 AM EDT Narrative Resulting Agency Comment Spec In Lab Hay Sparks MD CHEMISTRY ORDERABLES [facility] [place] [address] * Vancomycin, trough (04/27/2018 1:30 PM EDT) Vancomycin, Trough 11.1 mg/L [facility] [...] In Lab Hay Sparks MD CHEMISTRY ORDERABLES [facility] [place] [address] * XR PICC Placement Over 5 Years [...] 4:43 AM EDT) Neutrophil % 84.4 % [facility] Neutrophil Absolute 4.96 1.70 - 6.10 x10(3)/mc L [facility] Lymph % 9.7 % [facility] Lymphocytes Abs 0.6(L) 0.9 - 3.2 x10(3)/mc L [facility] Monocyte % 5.5 % [facility] Monocyte Abs 0.3 0.3 - 0.9 x10(3)/[facility] Eos % 0.0 % [facility] Eosinophils Abs 0.0 0.0 - 0.4 x10(3)/[facility]ORY Basophil % 0.2 % [facility] Baso Absolute 0.0 0.0 - 0.1 x10(3)/[facility]ORY Immature Gran % 0.20 % [facility] Comment: Immature granulocytes(IG's)percentage and absolute count will include metamyelocytes, myelocytes, and promyelocytes. Blood smears from CBCs yielding IG's will be scanned manually for concordance. If this scan disagrees with the automated IG or if promyelocytes are noted, a manual differential will be performed. Immature Gran Absolute 0.01 0.00 - 0.04 x10(3)/[facility] LAB[facility] Blood specimen (specimen) 04/27/2018 4:43 AM EDT 04/27/2018 5:16 AM EDT Narrative Resulting Agency Comment Spec In Lab Apple Gutierrez MD HEMATOLOGY ORDERABLE S [facility] [place] [address] * (ABNORMAL) Hemogram (04/27/2018 4:43 AM EDT) White Blood Cell 5.9 4.0 - 9.5 x10(3)/[facility] Red Blood Cell 2.81(L) 4.58 - 5.54 x10(6)/[facility] Hemoglobin 8.8(L) 13.7 - 16.5 gm/dL [facility] Hematocrit 27.0(L) 40.5 - 48.5 % [facility] Mean Cell Volume 96.1(H) 82.9 - 93.1 fL [facility] Mean Cell Hemoglobin 31.3 27.5 - 32.1 pg [facility] Mean Cell Hemoglobin Concentration 32.6 32.0 - 35.7 gm/dL [facility] Platelet 302 145 - 357 x10(3)/mc L [facility] RDW Standard Deviation 54.9(H) 36.0 - 45.0 fL [facility] RDW coefficient of variation 15.5(H) 11.4 - 13.8 % [facility] Mean Platelet Volume 8.8 7.6 - 12.9 fL [facility] NRBC% auto 0.0 % [facility] NRBC Absolute 0.000 0.000 - 0.000 x10(3)/mc L [facility] Blood specimen (specimen) 04/27/2018 4:43 AM EDT 04/27/2018 5:16 AM EDT Narrative Resulting Agency Comment Spec In Lab Apple Gutierrez MD HEMATOLOGY ORDERABLE S [facility] [place] [address] * (ABNORMAL) Basic Metabolic Panel (non-fasting) (04/27/2018 4:43 AM EDT) Glucose 142 65 - 199 mg/dL [facility] Comment:Diabetes: >=200 mg/d L plus symptoms Blood Urea Nitrogen 41(H) 10 - 20 mg/dL [facility] Creatinine 2.81(H) 0.80 - 1.50 mg/dL [facility] Sodium 132(L) 135 - 145 mmol/L [facility] Potassium 5.6(H) 3.5 - 5.0 mmol/L [facility] Comment: Please note: ??Patients with WBC >100,000 may have falsely elevated Potassium levels. ??For accurate Potassium quantification in these patients send serum separator tube (gold top) for subsequent determinations. ??Contact the Clinical Chemistry Laboratory if there are any questions. Chloride 101 98 - 107 mmol/L [facility] Carbon Dioxide 18(L) 22 - 31 mmol/L [facility] Anion Gap 13 5 - 15 mmol/L [facility] Calcium 8.4(L) 8.5 - 10.5 mg/dL [facility] Est Glomerular Filtration Rate 24(L) >=60 mL/min/1. 73 m?? [facility] Comment: The eGFR was calculated using the CKD-EPI equation. As with all creatinine based estimates of kidney function, eGFR values calculated with the CKD-EPI equation are not accurate in patients with acute kidney failure, extremes of body mass or the acutely ill. [email or web address] eGFR 28(L) >=60 mL/min/1. 73 m?? [facility] Comment: The eGFR was calculated using the CKD-EPI equation. As with all creatinine based estimates of kidney function, eGFR values calculated with the CKD-EPI equation are not accurate in patients with acute kidney failure, extremes of body mass or the acutely ill. [email or web address] Blood specimen (specimen) 04/27/2018 4:43 AM EDT 04/27/2018 5:16 AM EDT Narrative Resulting Agency Comment Spec In Lab Hay Sparks MD CHEMISTRY ORDERABLES [facility] [place] [address] * (ABNORMAL) Hemogram (04/26/2018 3:09 PM EDT) White Blood Cell 4.8 4.0 - 9.5 x10(3)/mc L [facility] Red Blood Cell 2.90(L) 4.58 - 5.54 x10(6)/mc L [facility] Hemoglobin 8.8(L) 13.7 - 16.5 gm/dL [facility] Hematocrit 27.5(L) 40.5 - 48.5 % [facility] Mean Cell Volume 94.8(H) 82.9 - 93.1 fL [facility] Mean Cell Hemoglobin 30.3 27.5 - 32.1 pg [facility] Mean Cell Hemoglobin Concentration 32.0 32.0 - 35.7 gm/dL [facility] Platelet 273 145 - 357 x10(3)/mc L [facility] RDW Standard Deviation 55.8(H) 36.0 - 45.0 fL [facility] RDW coefficient of variation 15.9(H) 11.4 - 13.8 % [facility] Mean Platelet Volume 9.1 7.6 - 12.9 fL [facility] NRBC% auto 0.0 % [facility] NRBC Absolute 0.000 0.000 - 0.000 x10(3)/mc L [facility] Blood specimen (specimen) 04/26/2018 3:09 PM EDT 04/26/2018 3:16 PM EDT Narrative Resulting Agency Comment Spec In Lab Chase Olvera MD HEMATOLOGY ORDERA BLES [facility] [place] [address] * Vancomycin, trough (04/26/2018 2:15 PM EDT) Pathologist [facility] Vancomycin, Trough 11.8 mg/L [facility] Comment: Therapeutic range for complicated [...] In Lab Hay Sparks MD CHEMISTRY ORDERABLES [facility] [place] [address] * ABORH Recheck Status (04/26/2018 11:42 AM EDT) ABORH Type Recheck Completed [facility] Blood specimen (specimen) 04/26/2018 11:42 AM EDT 04/26/2018 11:42 AM EDT Narrative Resulting Agency Comment Spec In Lab Natalya Jacobsen MD BLOOD BANK LAB ORDER KELLY [facility] [place] [address] * Antibody screen (04/26/2018 11:42 AM EDT) Ab Screen Interp Negative [facility] Expires at [id number] on: 04/29/2018 [facility] Blood specimen (specimen) 04/26/2018 11:42 AM EDT 04/26/2018 11:42 AM EDT Narrative Resulting Agency Comment Spec In Lab Natalya Jacobsen MD BLOOD BANK LAB ORDER KELLY [facility] [place] [address] * ABO/Rh Typing (04/26/2018 11:42 AM EDT) ABORH Type A Pos [facility] Blood specimen (specimen) 04/26/2018 11:42 AM EDT 04/26/2018 11:42 AM EDT Narrative Resulting Agency Comment Spec In Lab Natalya Jacobsen MD BLOOD BANK LAB ORDER KELLY [facility] [place] [address] * Differential, Automated (04/26/2018 4:39 AM EDT) Pathologist [facility] Neutrophil % 55.1 % [facility] Neutrophil Absolute 2.56 1.70 - 6.10 x10(3)/[facility]AT[facility] Lymph % 27.7 % [facility] Lymphocytes Abs 1.3 0.9 - 3.2 x10(3)/[facility]OR[facility]ORY Monocyte % 10.5 % [facility] Monocyte Abs 0.5 0.3 - 0.9 x10(3)/[facility]OR[facility]ORY Eos % 5.2 % [facility] Eosinophils Abs 0.2 0.0 - 0.4 x10(3)/[facility]OR[facility]ORY Basophil % 1.3 % [facility] Baso Absolute 0.1 0.0 - 0.1 x10(3)/[facility] LABORATORY Immature Gran % 0.20 % [facility] Comment: Immature granulocytes(IG's)percentage and absolute count will include metamyelocytes, myelocytes, and promyelocytes. Blood smears from CBCs yielding IG's will be scanned manually for concordance. If this scan disagrees with the automated IG or if promyelocytes are noted, a manual differential will be performed. Immature Gran Absolute 0.01 0.00 - 0.04 x10(3)/[facility] Blood specimen (specimen) 04/26/2018 4:39 AM EDT 04/26/2018 4:58 AM EDT Narrative Resulting Agency Comment Spec In Lab Apple Gutierrez MD HEMATOLOGY ORDERABLE S [facility] [place] [address] * (ABNORMAL) Hemogram (04/26/2018 4:39 AM EDT) Pathologist [facility] White Blood Cell 4.6 4.0 - 9.5 x10(3)/mc L [facility] Red Blood Cell 2.58(L) 4.58 - 5.54 x10(6)/mc L [facility] Hemoglobin 7.9(L) 13.7 - 16.5 gm/dL [facility] Hematocrit 24.6(L) 40.5 - 48.5 % [facility] Mean Cell Volume 95.3(H) 82.9 - 93.1 fL [facility] Mean Cell Hemoglobin 30.6 27.5 - 32.1 pg [facility] Mean Cell Hemoglobin Concentration 32.1 32.0 - 35.7 gm/dL [facility] Platelet 253 145 - 357 x10(3)/mc L [facility] RDW Standard Deviation 54.4(H) 36.0 - 45.0 [facility] RDW coefficient of variation 15.7(H) 11.4 - 13.8 % [facility] Mean Platelet Volume 8.4 7.6 - 12.9 [facility] NRBC% auto 0.0 % [facility] NRBC Absolute 0.000 0.000 - 0.000 x10(3)/mc L [facility] Blood specimen (specimen) 04/26/2018 4:39 AM EDT 04/26/2018 4:58 AM EDT Narrative Resulting Agency Comment Spec In Lab Apple Gutierrez MD HEMATOLOGY ORDERABLE S [facility] [place] [address] * (ABNORMAL) Basic Metabolic Panel (non-fasting) (04/26/2018 4:39 AM EDT) Glucose 93 65 - 199 mg/dL [facility] Comment:Diabetes: >=200 mg/d L plus symptoms Blood Urea Nitrogen 37(H) 10 - 20 mg/dL [facility] Creatinine 2.80(H) 0.80 - 1.50 mg/dL [facility] Sodium 138 135 - 145 mmol/L [facility] Potassium 5.2(H) 3.5 - 5.0 mmol/L [facility] Comment: Please note: ??Patients with WBC >100,000 may have falsely elevated Potassium levels. ??For accurate Potassium quantification in these patients send serum separator tube (gold top) for subsequent determinations. ??Contact the Clinical Chemistry Laboratory if there are any questions. Chloride 106 98 - 107 mmol/L [facility] Carbon Dioxide 19(L) 22 - 31 mmol/L [facility] Anion Gap 13 5 - 15 mmol/L [facility] Calcium 8.2(L) 8.5 - 10.5 mg/dL [facility] Est Glomerular Filtration Rate 24(L) >=60 mL/min/1. 73 m?? [facility] Comment: The eGFR was calculated using the CKD-EPI equation. As with all creatinine based estimates of kidney function, eGFR values calculated with the CKD-EPI equation are not accurate in patients with acute kidney failure, extremes of body mass or the acutely ill. [email or web address] eGFR 28(L) >=60 mL/min/1. 73 m?? [facility] Comment: The eGFR was calculated using the CKD-EPI equation. As with all creatinine based estimates of kidney function, eGFR values calculated with the CKD-EPI equation are not accurate in patients with acute kidney failure, extremes of body mass or the acutely ill. [email or web address] Blood specimen (specimen) 04/26/2018 4:39 AM EDT 04/26/2018 4:58 AM EDT Narrative Resulting Agency Comment Spec In Lab Hay Sparks MD CHEMISTRY ORDERABLES [facility] [place] [address] * SCAN DOC: ECG (04/26/2018 12:00 AM EDT) Narrative 04/26/2018 12:00 AM EDT Ordered by an unspecified provider. Scanning Provider MEDIA MGR SCAN EXT O RDR/RSLT * Differential, Automated (04/25/2018 5:18 AM EDT) Neutrophil % 64.9 % [facility] Neutrophil Absolute 3.49 1.70 - 6.10 x10(3)/[facility] LABORATORY Lymph % 20.4 % [facility] Lymphocytes Abs 1.1 0.9 - 3.2 x10(3)/[facility] Monocyte % 8.0 % [facility] Monocyte Abs 0.4 0.3 - 0.9 x10(3)/[facility] LABORATORY Eos % 4.8 % [facility] Eosinophils Abs 0.3 0.0 - 0.4 x10(3)/[facility] Basophil % 1.5 % [facility] Baso Absolute 0.1 0.0 - 0.1 x10(3)/[facility] LABORATORY Immature Gran % 0.40 % [facility] Comment: Immature granulocytes(IG's)percentage and absolute count will include metamyelocytes, myelocytes, and promyelocytes. Blood smears from CBCs yielding IG's will be scanned manually for concordance. If this scan disagrees with the automated IG or if promyelocytes are noted, a manual differential will be performed. Immature Gran Absolute 0.02 0.00 - 0.04 x10(3)/[facility] Blood specimen (specimen) 04/25/2018 5:18 AM EDT 04/25/2018 5:43 AM EDT Narrative Resulting Agency Comment Spec In Lab Apple Gutierrez MD HEMATOLOGY ORDERABLE S [facility] [place] [address] * (ABNORMAL) Hemogram (04/25/2018 5:18 AM EDT) White Blood Cell 5.4 4.0 - 9.5 x10(3)/ [facility] Red Blood Cell 2.70(L) 4.58 - 5.54 x10(6)/mc L [facility] Hemoglobin 8.2(L) 13.7 - 16.5 gm/dL [facility] Hematocrit 26.1(L) 40.5 - 48.5 % [facility] Mean Cell Volume 96.7(H) 82.9 - 93.1 [facility] Mean Cell Hemoglobin 30.4 27.5 - 32.1 pg [facility] Mean Cell Hemoglobin Concentration 31.4(L) 32.0 - 35.7 gm/dL [facility] Platelet 327 145 - 357 x10(3)/[facility] LABORATORY RDW Standard Deviation 55.7(H) 36.0 - 45.0 [facility]ORY RDW coefficient of variation 15.8(H) 11.4 - 13.8 % [facility] Mean Platelet Volume 9.1 7.6 - 12.9 [facility] NRBC% auto 0.0 % [facility] NRBC Absolute 0.000 0.000 - 0.000 x10(3)/[facility] LABORATORY Blood specimen (specimen) 04/25/2018 5:18 AM EDT 04/25/2018 5:43 AM EDT Narrative Resulting Agency Comment Spec In Lab Apple Gutierrez MD HEMATOLOGY ORDERABLE S [facility] [place] [address] * (ABNORMAL) Basic Metabolic Panel (non-fasting) (04/25/2018 5:18 AM EDT) Glucose 97 65 - 199 mg/dL [facility] Comment:Diabetes: >=200 mg/d L plus symptoms Blood Urea Nitrogen 39(H) 10 - 20 mg/dL [facility] Creatinine 2.58(H) 0.80 - 1.50 mg/dL [facility] Sodium 138 135 - 145 mmol/L [facility] Potassium 5.2(H) 3.5 - 5.0 mmol/L [facility] Comment: Please note: ??Patients with WBC >100,000 may have falsely elevated Potassium levels. ??For accurate Potassium quantification in these patients send serum separator tube (gold top) for subsequent determinations. ??Contact the Clinical Chemistry Laboratory if there are any questions. Chloride 106 98 - 107 mmol/L [facility] Carbon Dioxide 19(L) 22 - 31 mmol/L [facility] Anion Gap 13 5 - 15 mmol/L [facility] Calcium 8.1(L) 8.5 - 10.5 mg/dL [facility] Est Glomerular Filtration Rate 27(L) >=60 mL/min/1. 73 m?? [facility] Comment: The eGFR was calculated using the CKD-EPI equation. As with all creatinine based estimates of kidney function, eGFR values calculated with the CKD-EPI equation are not accurate in patients with acute kidney failure, extremes of body mass or the acutely ill. [email or web address] eGFR 31(L) >=60 mL/min/1. 73 m?? [facility] Comment: The eGFR was calculated using the CKD-EPI equation. As with all creatinine based estimates of kidney function, eGFR values calculated with the CKD-EPI equation are not accurate in patients with acute kidney failure, extremes of body mass or the acutely ill. [email or web address] Blood specimen (specimen) 04/25/2018 5:18 AM EDT 04/25/2018 5:43 AM EDT Narrative Resulting Agency Comment Spec In Lab Hay Sparks MD CHEMISTRY ORDERABLES [facility] [place] [address] * Differential, Automated (04/24/2018 4:17 AM EDT) Neutrophil % 58.3 % [facility] Neutrophil Absolute 2.74 1.70 - 6.10 x10(3)/[facility] LABORATORY Lymph % 24.8 % [facility] Lymphocytes Abs 1.2 0.9 - 3.2 x10(3)/[facility]ORATORY Monocyte % 9.3 % [facility] Monocyte Abs 0.4 0.3 - 0.9 x10(3)/[facility]ORATORY Eos % 5.9 % [facility] Eosinophils Abs 0.3 0.0 - 0.4 x10(3)/[facility] Basophil % 1.1 % [facility] Baso Absolute 0.0 0.0 - 0.1 x10(3)/[facility] Immature Gran % 0.60 % [facility] Comment: Immature granulocytes(IG's)percentage and absolute count will include metamyelocytes, myelocytes, and promyelocytes. Blood smears from CBCs yielding IG's will be scanned manually for concordance. If this scan disagrees with the automated IG or if promyelocytes are noted, a manual differential will be performed. Immature Gran Absolute 0.03 0.00 - 0.04 x10(3)/[facility] Blood specimen (specimen) 04/24/2018 4:17 AM EDT 04/24/2018 4:40 AM EDT Narrative Resulting Agency Comment Spec In Lab Apple Gutierrez MD HEMATOLOGY ORDERABLE S [facility] [place] [address] * (ABNORMAL) Hemogram (04/24/2018 4:17 AM EDT) White Blood Cell 4.7 4.0 - 9.5 x10(3)/mc L [facility] Red Blood Cell 2.61(L) 4.58 - 5.54 x10(6)/mc L [facility] Hemoglobin 7.9(L) 13.7 - 16.5 gm/dL [facility] Hematocrit 24.6(L) 40.5 - 48.5 % [facility] Mean Cell Volume 94.3(H) 82.9 - 93.1 fL [facility] Mean Cell Hemoglobin 30.3 27.5 - 32.1 pg [facility] Mean Cell Hemoglobin Concentration 32.1 32.0 - 35.7 gm/dL [facility] Platelet 283 145 - 357 x10(3)/mc L [facility] RDW Standard Deviation 54.0(H) 36.0 - 45.0 fL [facility] RDW coefficient of variation 15.7(H) 11.4 - 13.8 % [facility] Mean Platelet Volume 8.6 7.6 - 12.9 [facility] NRBC% auto 0.0 % [facility] NRBC Absolute 0.000 0.000 - 0.000 x10(3)/mc L [facility] Blood specimen (specimen) 04/24/2018 4:17 AM EDT 04/24/2018 4:40 AM EDT Narrative Resulting Agency Comment Spec In Lab Apple Gutierrez MD HEMATOLOGY ORDERABLE S [facility] [place] [address] * (ABNORMAL) Basic Metabolic Panel (non-fasting) (04/24/2018 4:17 AM EDT) Glucose 93 65 - 199 mg/dL [facility] Comment:Diabetes: >=200 mg/d L plus symptoms Blood Urea Nitrogen 38(H) 10 - 20 mg/dL [facility] Creatinine 2.74(H) 0.80 - 1.50 mg/dL [facility] Sodium 138 135 - 145 mmol/L [facility] Potassium 5.2(H) 3.5 - 5.0 mmol/L [facility] Comment: Please note: ??Patients with WBC >100,000 may have falsely elevated Potassium levels. ??For accurate Potassium quantification in these patients send serum separator tube (gold top) for subsequent determinations. ??Contact the Clinical Chemistry Laboratory if there are any questions. Chloride 108(H) 98 - 107 mmol/L [facility] Carbon Dioxide 20(L) 22 - 31 mmol/L [facility] Anion Gap 10 5 - 15 mmol/L [facility] Calcium 8.0(L) 8.5 - 10.5 mg/dL [facility] Est Glomerular Filtration Rate 25(L) >=60 mL/min/1. 73 m?? [facility] Comment: The eGFR was calculated using the CKD-EPI equation. As with all creatinine based estimates of kidney function, eGFR values calculated with the CKD-EPI equation are not accurate in patients with acute kidney failure, extremes of body mass or the acutely ill. [email or web address] eGFR 29(L) >=60 mL/min/1. 73 m?? [facility] Comment: The eGFR was calculated using the CKD-EPI equation. As with all creatinine based estimates of kidney function, eGFR values calculated with the CKD-EPI equation are not accurate in patients with acute kidney failure, extremes of body mass or the acutely ill. [email or web address] Blood specimen (specimen) 04/24/2018 4:17 AM EDT 04/24/2018 4:40 AM EDT Narrative Resulting Agency Comment Spec In Lab Hay Sparks MD CHEMISTRY ORDERABLES [facility] [place] [address] * Differential, Automated (04/23/2018 4:56 AM EDT) Neutrophil % 61.5 % [facility] Neutrophil Absolute 3.19 1.70 - 6.10 x10(3)/mcL [facility] Lymph % 22.2 % [facility] Lymphocytes Abs 1.2 0.9 - 3.2 x10(3)/[facility]OR[facility]ORY Monocyte % 9.5 % [facility] Monocyte Abs 0.5 0.3 - 0.9 x10(3)/[facility]OR[facility]ORY Eos % 5.6 % [facility] Eosinophils Abs 0.3 0.0 - 0.4 x10(3)/[facility] Basophil % 0.8 % [facility] Baso Absolute 0.0 0.0 - 0.1 x10(3)/[facility] LABORATORY Immature Gran % 0.40 % [facility] Comment: Immature granulocytes(IG's)percentage and absolute count will include metamyelocytes, myelocytes, and promyelocytes. Blood smears from CBCs yielding IG's will be scanned manually for concordance. If this scan disagrees with the automated IG or if promyelocytes are noted, a manual differential will be performed. Immature Gran Absolute 0.02 0.00 - 0.04 x10(3)/[facility] LABORATORY Blood specimen (specimen) 04/23/2018 4:56 AM EDT 04/23/2018 5:25 AM EDT Narrative Resulting Agency Comment Spec In Lab Apple Gutierrez MD HEMATOLOGY ORDERABLE S Performing Organization Address City/State/[facility] Co de Phone Number [facility] [place] [address] * (ABNORMAL) Hemogram (04/23/2018 4:56 AM EDT) White Blood Cell 5.2 4.0 - 9.5 x10(3)/mc L [facility] Red Blood Cell 2.60(L) 4.58 - 5.54 x10(6)/mc L [facility] Hemoglobin 8.0(L) 13.7 - 16.5 gm/dL [facility] Hematocrit 24.3(L) 40.5 - 48.5 % [facility] Mean Cell Volume 93.5(H) 82.9 - 93.1 fL [facility] Mean Cell Hemoglobin 30.8 27.5 - 32.1 pg [facility] Mean Cell Hemoglobin Concentration 32.9 32.0 - 35.7 gm/dL [facility] Platelet 317 145 - 357 x10(3)/mc L [facility] RDW Standard Deviation 54.2(H) 36.0 - 45.0 [facility] RDW coefficient of variation 15.9(H) 11.4 - 13.8 % [facility] Mean Platelet Volume 8.5 7.6 - 12.9 [facility] NRBC% auto 0.0 % [facility] NRBC Absolute 0.000 0.000 - 0.000 x10(3)/mc L [facility] Blood specimen (specimen) 04/23/2018 4:56 AM EDT 04/23/2018 5:25 AM EDT Narrative Resulting Agency Comment Spec In Lab Apple Gutierrez MD HEMATOLOGY ORDERABLE S [facility] [place] [address] * (ABNORMAL) Basic Metabolic Panel (non-fasting) (04/23/2018 4:56 AM EDT) Glucose 96 65 - 199 mg/dL [facility] Comment:Diabetes: >=200 mg/d L plus symptoms Blood Urea Nitrogen 36(H) 10 - 20 mg/dL [facility] Creatinine 2.49(H) 0.80 - 1.50 mg/dL [facility] Sodium 137 135 - 145 mmol/L [facility] Potassium 4.9 3.5 - 5.0 mmol/L [facility] Comment: Please note: ??Patients with WBC >100,000 may have falsely elevated Potassium levels. ??For accurate Potassium quantification in these patients send serum separator tube (gold top) for subsequent determinations. ??Contact the Clinical Chemistry Laboratory if there are any questions. Chloride 103 98 - 107 mmol/L [facility] Carbon Dioxide 20(L) 22 - 31 mmol/L [facility] Anion Gap 14 5 - 15 mmol/L [facility] Calcium 8.1(L) 8.5 - 10.5 mg/dL [facility] Est Glomerular Filtration Rate 28(L) >=60 mL/min/1. 73 m?? [facility] Comment: The eGFR was calculated using the CKD-EPI equation. As with all creatinine based estimates of kidney function, eGFR values calculated with the CKD-EPI equation are not accurate in patients with acute kidney failure, extremes of body mass or the acutely ill. [email or web address] eGFR 32(L) >=60 mL/min/1. 73 m?? [facility] Comment: The eGFR was calculated using the CKD-EPI equation. As with all creatinine based estimates of kidney function, eGFR values calculated with the CKD-EPI equation are not accurate in patients with acute kidney failure, extremes of body mass or the acutely ill. [email or web address] Blood specimen (specimen) 04/23/2018 4:56 AM EDT 04/23/2018 5:25 AM EDT Narrative Resulting Agency Comment Spec In Lab Hay Sparks MD CHEMISTRY ORDERABLES [facility] [place] [address] * Differential, Automated (04/22/2018 5:34 AM EDT) Neutrophil % 67.1 % [facility] Neutrophil Absolute 3.67 1.70 - 6.10 x10(3)/[facility] LABORATORY Lymph % 17.3 % [facility] Lymphocytes Abs 1.0 0.9 - 3.2 x10(3)/[facility] Monocyte % 10.0 % [facility] Monocyte Abs 0.6 0.3 - 0.9 x10(3)/[facility] Eos % 4.7 % [facility] Eosinophils Abs 0.3 0.0 - 0.4 x10(3)/[facility] Basophil % 0.7 % [facility] Baso Absolute 0.0 0.0 - 0.1 x10(3)/[facility] Immature Gran % 0.20 % [facility] Comment: Immature granulocytes(IG's)percentage and absolute count will include metamyelocytes, myelocytes, and promyelocytes. Blood smears from CBCs yielding IG's will be scanned manually for concordance. If this scan disagrees with the automated IG or if promyelocytes are noted, a manual differential will be performed. Immature Gran Absolute 0.01 0.00 - 0.04 x10(3)/[facility] Blood specimen (specimen) 04/22/2018 5:34 AM EDT 04/22/2018 5:51 AM EDT Narrative Resulting Agency Comment Spec In Lab Apple Gutierrez MD HEMATOLOGY ORDERABLE S [facility] [place] [address] * (ABNORMAL) Hemogram (04/22/2018 5:34 AM EDT) White Blood Cell 5.5 4.0 - 9.5 x10(3)/mc L [facility] Red Blood Cell 2.62(L) 4.58 - 5.54 x10(6)/mc L [facility] Hemoglobin 8.0(L) 13.7 - 16.5 gm/dL [facility] Hematocrit 24.8(L) 40.5 - 48.5 % [facility] Mean Cell Volume 94.7(H) 82.9 - 93.1 fL [facility] Mean Cell Hemoglobin 30.5 27.5 - 32.1 pg [facility] Mean Cell Hemoglobin Concentration 32.3 32.0 - 35.7 gm/dL [facility] Platelet 289 145 - 357 x10(3)/mc L [facility] RDW Standard Deviation 56.7(H) 36.0 - 45.0 fL [facility] RDW coefficient of variation 16.2(H) 11.4 - 13.8 % [facility] Mean Platelet Volume 8.6 7.6 - 12.9 fL [facility] NRBC% auto 0.0 % [facility] NRBC Absolute 0.000 0.000 - 0.000 x10(3)/mc L [facility] Blood specimen (specimen) 04/22/2018 5:34 AM EDT 04/22/2018 5:51 AM EDT Narrative Resulting Agency Comment Spec In Lab Apple Gutierrez MD HEMATOLOGY ORDERABLE S [facility] [place] [address] * (ABNORMAL) Basic Metabolic Panel (non-fasting) (04/22/2018 5:34 AM EDT) Glucose 100 65 - 199 mg/dL [facility] Comment:Diabetes: >=200 mg/d L plus symptoms Blood Urea Nitrogen 38(H) 10 - 20 mg/dL [facility] Creatinine 2.30(H) 0.80 - 1.50 mg/dL [facility] LABORATORY Sodium 138 135 - 145 mmol/L [facility] Potassium 5.3(H) 3.5 - 5.0 mmol/L [facility] Comment: Please note: ??Patients with WBC >100,000 may have falsely elevated Potassium levels. ??For accurate Potassium quantification in these patients send serum separator tube (gold top) for subsequent determinations. ??Contact the Clinical Chemistry Laboratory if there are any questions. Chloride 106 98 - 107 mmol/L [facility] Carbon Dioxide 19(L) 22 - 31 mmol/L [facility] Anion Gap 13 5 - 15 mmol/L [facility] Calcium 8.0(L) 8.5 - 10.5 mg/dL [facility] Est Glomerular Filtration Rate 31(L) >=60 mL/min/1. 73 m?? [facility] Comment: The eGFR was calculated using the CKD-EPI equation. As with all creatinine based estimates of kidney function, eGFR values calculated with the CKD-EPI equation are not accurate in patients with acute kidney failure, extremes of body mass or the acutely ill. [email or web address] eGFR 35(L) >=60 mL/min/1. 73 m?? [facility] Comment: The eGFR was calculated using the CKD-EPI equation. As with all creatinine based estimates of kidney function, eGFR values calculated with the CKD-EPI equation are not accurate in patients with acute kidney failure, extremes of body mass or the acutely ill. [email or web address] Blood specimen (specimen) 04/22/2018 5:34 AM EDT 04/22/2018 5:51 AM EDT Narrative Resulting Agency Comment Spec In Lab Hay Sparks MD CHEMISTRY ORDERABLES [facility] [place] [address] * Blood culture (04/21/2018 6:05 AM EDT) Blood Culture No growth at 5 days. [facility] Blood specimen (specimen) STRUCTURE OF RIGHT HAND / Unknown 04/21/2018 6:05 AM EDT 04/21/2018 8:01 AM EDT Narrative Resulting Agency Comment Spec In Lab Chase Olvera MD MICROBIOLOGY - BL OOD ORDERABLES [facility] [place] [address] * Blood culture (04/21/2018 5:50 AM EDT) Blood Culture No growth at 5 days. [facility] Blood specimen (specimen) ANTECUBITAL REGION STRUCTURE / Unknown 04/21/2018 5:50 AM EDT 04/21/2018 7:59 AM EDT Narrative Resulting Agency Comment Spec In Lab Chase Olvera MD MICROBIOLOGY - BL OOD ORDERABLES [facility] [place] [address] * Differential, Automated (04/21/2018 5:50 AM EDT) Pathologist [facility] Neutrophil % 66.9 % [facility] Neutrophil Absolute 3.88 1.70 - 6.10 x10(3)/[facility] LABORATORY Lymph % 16.8 % [facility] Lymphocytes Abs 1.0 0.9 - 3.2 x10(3)/[facility]ORATORY Monocyte % 8.8 % [facility] Monocyte Abs 0.5 0.3 - 0.9 x10(3)/[facility]ORATORY Eos % 5.9 % [facility] Eosinophils Abs 0.3 0.0 - 0.4 x10(3)/[facility]ORATORY Basophil % 0.9 % [facility] Baso Absolute 0.0 0.0 - 0.1 x10(3)/[facility] LABORATORY Immature Gran % 0.70 % [facility] Comment: Immature granulocytes(IG's)percentage and absolute count will include metamyelocytes, myelocytes, and promyelocytes. Blood smears from CBCs yielding IG's will be scanned manually for concordance. If this scan disagrees with the automated IG or if promyelocytes are noted, a manual differential will be performed. Immature Gran Absolute 0.04 0.00 - 0.04 x10(3)/[facility] LABORATORY Blood specimen (specimen) 04/21/2018 5:50 AM EDT 04/21/2018 6:29 AM EDT Narrative Resulting Agency Comment Spec In Lab Apple Gutierrez MD HEMATOLOGY ORDERABLE S [facility] [place] [address] * (ABNORMAL) Hemogram (04/21/2018 5:50 AM EDT) White Blood Cell 5.8 4.0 - 9.5 x10(3)/ L [facility] Red Blood Cell 2.55(L) 4.58 - 5.54 x10(6)/mc L [facility] Hemoglobin 7.7(L) 13.7 - 16.5 gm/dL [facility] Hematocrit 24.2(L) 40.5 - 48.5 % [facility] Mean Cell Volume 94.9(H) 82.9 - 93.1 fL [facility] Mean Cell Hemoglobin 30.2 27.5 - 32.1 pg [facility] Mean Cell Hemoglobin Concentration 31.8(L) 32.0 - 35.7 gm/dL [facility] Platelet 316 145 - 357 x10(3)/[facility] LABORATORY RDW Standard Deviation 56.2(H) 36.0 - 45.0 fL [facility] RDW coefficient of variation 16.0(H) 11.4 - 13.8 % [facility] Mean Platelet Volume 8.2 7.6 - 12.9 fL [facility] NRBC% auto 0.0 % [facility] NRBC Absolute 0.000 0.000 - 0.000 x10(3)/ L [facility] Blood specimen (specimen) 04/21/2018 5:50 AM EDT 04/21/2018 6:29 AM EDT Narrative Resulting Agency Comment Spec In Lab Apple Gutierrez MD HEMATOLOGY ORDERABLE S [facility] [place] [address] * (ABNORMAL) Basic Metabolic Panel (non-fasting) (04/21/2018 5:50 AM EDT) Glucose 97 65 - 199 mg/dL [facility] Comment:Diabetes: >=200 mg/d L plus symptoms Blood Urea Nitrogen 34(H) 10 - 20 mg/dL [facility] Creatinine 2.30(H) 0.80 - 1.50 mg/dL [facility] Sodium 138 135 - 145 mmol/L [facility] Potassium 4.8 3.5 - 5.0 mmol/L [facility] Comment: Please note: ??Patients with WBC >100,000 may have falsely elevated Potassium levels. ??For accurate Potassium quantification in these patients send serum separator tube (gold top) for subsequent determinations. ??Contact the Clinical Chemistry Laboratory if there are any questions. Chloride 105 98 - 107 mmol/L [facility] Carbon Dioxide 21(L) 22 - 31 mmol/L [facility] Anion Gap 12 5 - 15 mmol/L [facility] Calcium 8.1(L) 8.5 - 10.5 mg/dL [facility] Est Glomerular Filtration Rate 31(L) >=60 mL/min/1. 73 m?? [facility] Comment: The eGFR was calculated using the CKD-EPI equation. As with all creatinine based estimates of kidney function, eGFR values calculated with the CKD-EPI equation are not accurate in patients with acute kidney failure, extremes of body mass or the acutely ill. [email or web address] eGFR 35(L) >=60 mL/min/1. 73 m?? [facility] Comment: The eGFR was calculated using the CKD-EPI equation. As with all creatinine based estimates of kidney function, eGFR values calculated with the CKD-EPI equation are not accurate in patients with acute kidney failure, extremes of body mass or the acutely ill. [email or web address] Blood specimen (specimen) 04/21/2018 5:50 AM EDT 04/21/2018 6:29 AM EDT Narrative Resulting Agency Comment Spec In Lab Hay Sparks MD CHEMISTRY ORDERABLES [facility] [place] [address] * Differential, Automated (04/20/2018 5:48 AM EDT) Neutrophil % 74.0 % [facility] Neutrophil Absolute 5.39 1.70 - 6.10 x10(3)/[facility] LABORATORY Lymph % 12.8 % [facility] Lymphocytes Abs 0.9 0.9 - 3.2 x10(3)/[facility]ORATORY Monocyte % 8.2 % [facility] Monocyte Abs 0.6 0.3 - 0.9 x10(3)/[facility]ORAT[facility] Eos % 4.0 % [facility] Eosinophils Abs 0.3 0.0 - 0.4 x10(3)/[facility]ORATORY Basophil % 0.5 % [facility] Baso Absolute 0.0 0.0 - 0.1 x10(3)/[facility]ORATORY Immature Gran % 0.50 % [facility] Comment: Immature granulocytes(IG's)percentage and absolute count will include metamyelocytes, myelocytes, and promyelocytes. Blood smears from CBCs yielding IG's will be scanned manually for concordance. If this scan disagrees with the automated IG or if promyelocytes are noted, a manual differential will be performed. Immature Gran Absolute 0.04 0.00 - 0.04 x10(3)/[facility]ATORY Blood specimen (specimen) 04/20/2018 5:48 AM EDT 04/20/2018 6:06 AM EDT Narrative Resulting Agency Comment Spec In Lab Apple Gutierrez MD HEMATOLOGY ORDERABLE S [facility] [place] [address] * (ABNORMAL) Hemogram (04/20/2018 5:48 AM EDT) White Blood Cell 7.3 4.0 - 9.5 x10(3)/mc L [facility] Red Blood Cell 2.53(L) 4.58 - 5.54 x10(6)/mc L [facility] Hemoglobin 7.8(L) 13.7 - 16.5 gm/dL [facility] Hematocrit 23.7(L) 40.5 - 48.5 % [facility] Mean Cell Volume 93.7(H) 82.9 - 93.1 fL [facility] Mean Cell Hemoglobin 30.8 27.5 - 32.1 pg [facility] Mean Cell Hemoglobin Concentration 32.9 32.0 - 35.7 gm/dL [facility] Platelet 302 145 - 357 x10(3)/mc L [facility] RDW Standard Deviation 54.4(H) 36.0 - 45.0 [facility] LABORATORY RDW coefficient of variation 15.9(H) 11.4 - 13.8 % [facility] Mean Platelet Volume 8.5 7.6 - 12.9 [facility] NRBC% auto 0.0 % [facility] NRBC Absolute 0.000 0.000 - 0.000 x10(3)/mc L [facility] Blood specimen (specimen) 04/20/2018 5:48 AM EDT 04/20/2018 6:06 AM EDT Narrative Resulting Agency Comment Spec In Lab Apple Gutierrez MD HEMATOLOGY ORDERABLE S [facility] [place] [address] * APTT (04/20/2018 5:48 AM EDT) Partial Thromboplastin Time 27 25 - 37 sec [facility] Comment: The PTT is NOT appropriate for heparin monitoring. Use the Anti-Xa level for heparin monitoring (HEP UFH) or LMWH monitoring (HEP LMW). A PTT less than 37 seconds generally indicates adequate hemostasis. Blood specimen (specimen) 04/20/2018 5:48 AM EDT 04/20/2018 6:06 AM EDT Narrative Resulting Agency Comment Spec In Lab Chase Olvera MD HEMATOLOGY ORDERA BLES Performing Organization Address [facility] Co de Phone Number [facility] [place] [place] [address] * Prothrombin Time (04/20/2018 5:48 AM EDT) Prothrombin Time 11.6 9.4 - 12.5 sec [facility] International Normalization Ratio 1.0 [facility] Comment: An INR <2.0 indicates [...] MD HEMATOLOGY ORDERA BLES Performing Organization Address [facility] Co de Phone Number [facility] [place] [address] * (ABNORMAL) Basic Metabolic Panel (non-fasting) (04/20/2018 5:48 AM EDT) Glucose 103 65 - 199 mg/dL [facility] Comment:Diabetes: >=200 mg/d L plus symptoms Blood Urea Nitrogen 33(H) 10 - 20 mg/dL [facility] Creatinine 2.38(H) 0.80 - 1.50 mg/dL [facility] Sodium 138 135 - 145 mmol/L [facility] Potassium 4.7 3.5 - 5.0 mmol/L [facility] Comment: Please note: ??Patients with WBC >100,000 may have falsely elevated Potassium levels. ??For accurate Potassium quantification in these patients send serum separator tube (gold top) for subsequent determinations. ??Contact the Clinical Chemistry Laboratory if there are any questions. Chloride 104 98 - 107 mmol/L [facility] Carbon Dioxide 21(L) 22 - 31 mmol/L [facility] Anion Gap 13 5 - 15 mmol/L [facility] Calcium 8.0(L) 8.5 - 10.5 mg/dL [facility] Est Glomerular Filtration Rate 29(L) >=60 mL/min/1. 73 m?? [facility] Comment: The eGFR was calculated using the CKD-EPI equation. As with all creatinine based estimates of kidney function, eGFR values calculated with the CKD-EPI equation are not accurate in patients with acute kidney failure, extremes of body mass or the acutely ill. [email or web address] eGFR 34(L) >=60 mL/min/1. 73 m?? [facility] Comment: The eGFR was calculated using the CKD-EPI equation. As with all creatinine based estimates of kidney function, eGFR values calculated with the CKD-EPI equation are not accurate in patients with acute kidney failure, extremes of body mass or the acutely ill. [email or web address] Blood specimen (specimen) 04/20/2018 5:48 AM EDT 04/20/2018 6:06 AM EDT Narrative Resulting Agency Comment Spec In Lab Hay Sparks MD CHEMISTRY ORDERABLES [facility] [place] [address] * Anaerobic Culture (04/19/2018 9:25 AM EDT) Anaerobic Culture No anaerobic organisms isolated [facility] Skin (tissue) specimen (specimen) 04/19/2018 9:25 AM EDT 04/19/2018 9:37 AM EDT Comment:LEFT ARM SNUFFBOX PS EUDOANEURYSM FOR AEROBIC, ANAEROBIC, GRAM STAIN Narrative Resulting Agency Comment Spec In Lab Odalis Elias MD MICROBIOLOGY - GENERAL ORDERABLES Performing Organization Address [facility] Co de Phone Number [facility] [place] [address] * (ABNORMAL) Tissue culture (04/19/2018 9:25 AM EDT) Tissue Culture Rare Corynebacterium species : possible contaminant(A) [facility] Gram Stain Many Neutrophils seen Rare Gram Negative Rods seen (A) [facility] Organism Gram Negative Rods(A) [facility] Skin (tissue) specimen (specimen) 04/19/2018 9:25 AM EDT 04/19/2018 9:37 AM EDT Comment:LEFT ARM SNUFFBOX PS EUDOANEURYSM FOR AEROBIC, ANAEROBIC, GRAM STAIN Narrative Resulting Agency Comment Spec In Lab Odalis Elias MD MICROBIOLOGY - GENERAL ORDERABLES Performing Organization Address [facility] Co de Phone Number [facility] [place] [address] * Differential, Automated (04/19/2018 6:25 AM EDT) Neutrophil % 68.5 % [facility] Neutrophil Absolute 3.75 1.70 - 6.10 x10(3)/[facility] LABORAT[facility] Lymph % 17.3 % [facility] Lymphocytes Abs 1.0 0.9 - 3.2 x10(3)/[facility] Monocyte % 9.3 % [facility] Monocyte Abs 0.5 0.3 - 0.9 x10(3)/[facility] Eos % 4.0 % [facility] Eosinophils Abs 0.2 0.0 - 0.4 x10(3)/[facility] Basophil % 0.7 % [facility] Baso Absolute 0.0 0.0 - 0.1 x10(3)/[facility] Immature Gran % 0.20 % [facility] Comment: Immature granulocytes(IG's)percentage and absolute count will include metamyelocytes, myelocytes, and promyelocytes. Blood smears from CBCs yielding IG's will be scanned manually for concordance. If this scan disagrees with the automated IG or if promyelocytes are noted, a manual differential will be performed. Immature Gran Absolute 0.01 0.00 - 0.04 x10(3)/[facility] Blood specimen (specimen) 04/19/2018 6:25 AM EDT 04/19/2018 6:32 AM EDT Narrative Resulting Agency Comment Spec In Lab Apple Gutierrez MD HEMATOLOGY ORDERABLE S [facility] [place] [address] * (ABNORMAL) Hemogram (04/19/2018 6:25 AM EDT) White Blood Cell 5.5 4.0 - 9.5 x10(3)/mc L [facility] Red Blood Cell 2.52(L) 4.58 - 5.54 x10(6)/mc L [facility] Hemoglobin 7.7(L) 13.7 - 16.5 gm/dL [facility] Hematocrit 23.3(L) 40.5 - 48.5 % [facility] Mean Cell Volume 92.5 82.9 - 93.1 fL [facility] Mean Cell Hemoglobin 30.6 27.5 - 32.1 pg [facility] Mean Cell Hemoglobin Concentration 33.0 32.0 - 35.7 gm/dL [facility] Platelet 274 145 - 357 x10(3)/mc L [facility] RDW Standard Deviation 53.1(H) 36.0 - 45.0 fL [facility] RDW coefficient of variation 15.6(H) 11.4 - 13.8 % [facility] Mean Platelet Volume 8.3 7.6 - 12.9 fL [facility] NRBC% auto 0.0 % [facility] NRBC Absolute 0.000 0.000 - 0.000 x10(3)/mc L [facility] Blood specimen (specimen) 04/19/2018 6:25 AM EDT 04/19/2018 6:32 AM EDT Narrative Resulting Agency Comment Spec In Lab Apple Gutierrez MD HEMATOLOGY ORDERABLE S Performing Organization Address [facility]/ZIP Co de Phone Number [facility] [place] [address] * APTT (04/19/2018 6:25 AM EDT) Partial Thromboplastin Time 27 25 - 37 sec [facility] Comment: The PTT is NOT [...] Organization Address City/[facility]/ZIP Co de Phone Number [facility] [place] [address] * Prothrombin Time (04/19/2018 6:25 AM EDT) Prothrombin Time 11.5 9.4 - 12.5 sec [facility] International Normalization Ratio 1.0 [facility] Comment: An INR <2.0 indicates [...] Lab Chase Olvera MD HEMATOLOGY ORDERA BLES [facility] [place] [address] * (ABNORMAL) Basic Metabolic Panel (non-fasting) (04/19/2018 6:25 AM EDT) Glucose 100 65 - 199 mg/dL [facility] Comment:Diabetes: >=200 mg/d L plus symptoms Blood Urea Nitrogen 35(H) 10 - 20 mg/dL [facility] Creatinine 2.12(H) 0.80 - 1.50 mg/dL [facility] Sodium 137 135 - 145 mmol/L [facility] Potassium 4.7 3.5 - 5.0 mmol/L [facility] Comment: Please note: ??Patients with WBC >100,000 may have falsely elevated Potassium levels. ??For accurate Potassium quantification in these patients send serum separator tube (gold top) for subsequent determinations. ??Contact the Clinical Chemistry Laboratory if there are any questions. Chloride 104 98 - 107 mmol/L [facility] Carbon Dioxide 21(L) 22 - 31 mmol/L [facility] Anion Gap 12 5 - 15 mmol/L [facility] Calcium 8.0(L) 8.5 - 10.5 mg/dL [facility] Est Glomerular Filtration Rate 34(L) >=60 mL/min/1. 73 m?? [facility] Comment: The eGFR was calculated using the CKD-EPI equation. As with all creatinine based estimates of kidney function, eGFR values calculated with the CKD-EPI equation are not accurate in patients with acute kidney failure, extremes of body mass or the acutely ill. [email or web address] eGFR 39(L) >=60 mL/min/1. 73 m?? [facility] Comment: The eGFR was calculated using the CKD-EPI equation. As with all creatinine based estimates of kidney function, eGFR values calculated with the CKD-EPI equation are not accurate in patients with acute kidney failure, extremes of body mass or the acutely ill. [email or web address] Blood specimen (specimen) 04/19/2018 6:25 AM EDT 04/19/2018 6:32 AM EDT Narrative Resulting Agency Comment Spec In Lab Hay Sparks MD CHEMISTRY ORDERABLES Performing Organization Address [facility] Co de Phone Number [facility] [place] [address] * Tacrolimus level (04/19/2018 6:25 AM EDT) Tacrolimus 2.8 ng/mL [facility] Comment: Trough therapeutic: ??5-15 ng/mL Performed by ultra-performance liquid chromatography tandem mass spectrometry (UPLCMS/MS). This test was developed and its performance characteristics determined by [facility]. It has not been [...] MD CHEMISTRY ORDERAB LES Performing Organization Address [facility]/ZIP Co de Phone Number [facility] [place] [address] * AVF/Established Access Evaluation (04/18/2018 1:29 PM EDT) VB Text Report Department: Vascular Surgery Lab Patient: [id number] (ARNOL, CHRISTY) CPT: 00124 ICD10: N18.6;R57.8 Referring Physician: CHASE OLVERA ?? [...] 5:26 AM EDT) Neutrophil % 67.3 % [facility] Neutrophil Absolute 4.29 1.70 - 6.10 x10(3)/[facility] Lymph % 19.6 % [facility] Lymphocytes Abs 1.2 0.9 - 3.2 x10(3)/[facility] Monocyte % 8.2 % [facility] Monocyte Abs 0.5 0.3 - 0.9 x10(3)/[facility] Eos % 3.9 % [facility] Eosinophils Abs 0.2 0.0 - 0.4 x10(3)/[facility] Basophil % 0.5 % [facility] Baso Absolute 0.0 0.0 - 0.1 x10(3)/[facility] Immature Gran % 0.50 % [facility] Comment: Immature granulocytes(IG's)percentage and absolute count will include metamyelocytes, myelocytes, and promyelocytes. Blood smears from CBCs yielding IG's will be scanned manually for concordance. If this scan disagrees with the automated IG or if promyelocytes are noted, a manual differential will be performed. Immature Gran Absolute 0.03 0.00 - 0.04 x10(3)/[facility] Blood specimen (specimen) 04/18/2018 5:26 AM EDT 04/18/2018 5:39 AM EDT Narrative Resulting Agency Comment Spec In Lab Apple Gutierrez MD HEMATOLOGY ORDERABLE S Performing Organization Address City/State/[facility] Co de Phone Number [facility] [place] [address] * (ABNORMAL) Hemogram (04/18/2018 5:26 AM EDT) White Blood Cell 6.4 4.0 - 9.5 x10(3)/mc L [facility] Red Blood Cell 2.65(L) 4.58 - 5.54 x10(6)/mc L [facility] Hemoglobin 8.0(L) 13.7 - 16.5 gm/dL [facility] Hematocrit 24.6(L) 40.5 - 48.5 % [facility] Mean Cell Volume 92.8 82.9 - 93.1 fL [facility] Mean Cell Hemoglobin 30.2 27.5 - 32.1 pg [facility] Mean Cell Hemoglobin Concentration 32.5 32.0 - 35.7 gm/dL [facility] Platelet 305 145 - 357 x10(3)/mc L [facility] RDW Standard Deviation 53.2(H) 36.0 - 45.0 fL [facility] RDW coefficient of variation 15.7(H) 11.4 - 13.8 % [facility] Mean Platelet Volume 8.3 7.6 - 12.9 fL [facility] NRBC% auto 0.0 % [facility] NRBC Absolute 0.000 0.000 - 0.000 x10(3)/mc L [facility] Blood specimen (specimen) 04/18/2018 5:26 AM EDT 04/18/2018 5:39 AM EDT Narrative Resulting Agency Comment Spec In Lab Apple Gutierrez MD HEMATOLOGY ORDERABLE S Performing Organization Address [facility]/[place] [address] * APTT (04/18/2018 5:26 AM EDT) Partial Thromboplastin Time 27 25 - 37 sec [facility] Comment: The PTT is NOT [...] Organization Address City/[facility]/ZIP Co de Phone Number [facility] [place] [address] * Prothrombin Time (04/18/2018 5:26 AM EDT) Prothrombin Time 11.2 9.4 - 12.5 sec [facility] International Normalization Ratio 1.0 [facility] Comment: An INR <2.0 indicates [...] Lab Chase Olvera MD HEMATOLOGY ORDERA BLES [facility] [place] [address] * (ABNORMAL) Basic Metabolic Panel (non-fasting) (04/18/2018 5:26 AM EDT) Glucose 103 65 - 199 mg/dL [facility] Comment:Diabetes: >=200 mg/d L plus symptoms Blood Urea Nitrogen 36(H) 10 - 20 mg/dL [facility] Creatinine 2.30(H) 0.80 - 1.50 mg/dL [facility] Sodium 135 135 - 145 mmol/L [facility] Potassium 4.3 3.5 - 5.0 mmol/L [facility] Comment: Please note: ??Patients with WBC >100,000 may have falsely elevated Potassium levels. ??For accurate Potassium quantification in these patients send serum separator tube (gold top) for subsequent determinations. ??Contact the Clinical Chemistry Laboratory if there are any questions. Chloride 104 98 - 107 mmol/L [facility] Carbon Dioxide 20(L) 22 - 31 mmol/L [facility] Anion Gap 11 5 - 15 mmol/L [facility] Calcium 8.3(L) 8.5 - 10.5 mg/dL [facility] Est Glomerular Filtration Rate 31(L) >=60 mL/min/1. 73 m?? [facility] Comment: The eGFR was calculated using the CKD-EPI equation. As with all creatinine based estimates of kidney function, eGFR values calculated with the CKD-EPI equation are not accurate in patients with acute kidney failure, extremes of body mass or the acutely ill. [email or web address] eGFR 35(L) >=60 mL/min/1. 73 m?? [facility] Comment: The eGFR was calculated using the CKD-EPI equation. As with all creatinine based estimates of kidney function, eGFR values calculated with the CKD-EPI equation are not accurate in patients with acute kidney failure, extremes of body mass or the acutely ill. [email or web address] Blood specimen (specimen) 04/18/2018 5:26 AM EDT 04/18/2018 5:39 AM EDT Narrative Resulting Agency Comment Spec In Lab Hay Sparks MD CHEMISTRY ORDERABLES Performing Organization Address City/[facility]/ZIP Co de Phone Number [facility] [place] [address] * ABORH Recheck Status (04/17/2018 9:07 AM EDT) ABORH Type Recheck Completed [facility] Blood specimen (specimen) 04/17/2018 9:07 AM EDT 04/17/2018 9:22 AM EDT Narrative Resulting Agency Comment Spec In Lab Tim Ogden MD BLOOD BANK LAB ORDE ABDIAS Performing Organization Address City/[facility]/ZIP Co de Phone Number [facility] [place] [address] * Antibody screen (04/17/2018 9:07 AM EDT) Ab Screen Interp Negative [facility] Expires at [id number] on: 04/20/2018 [facility] Blood specimen (specimen) 04/17/2018 9:07 AM EDT 04/17/2018 9:22 AM EDT Narrative Resulting Agency Comment Spec In Lab Tim Ogden MD BLOOD BANK LAB RYAN CALERO Performing Organization Address City/[facility]/ZIP Co de Phone Number [facility] [place] [address] * ABO/Rh Typing (04/17/2018 9:07 AM EDT) Pathologist [facility] ABORH Type A Pos [facility] Blood specimen (specimen) 04/17/2018 9:07 AM EDT 04/17/2018 9:22 AM EDT Narrative Resulting Agency Comment Spec In Lab Tim Ogden MD BLOOD BANK LAB RYAN CALERO Performing Organization Address City/[facility]/ZIP Co de Phone Number [facility] [place] [address] * Differential, Automated (04/17/2018 4:43 AM EDT) Pathologist [facility] Neutrophil % 64.8 % [facility] Neutrophil Absolute 3.62 1.70 - 6.10 x10(3)/[facility] Lymph % 18.6 % [facility] Lymphocytes Abs 1.0 0.9 - 3.2 x10(3)/[facility] Monocyte % 10.0 % [facility] Monocyte Abs 0.6 0.3 - 0.9 x10(3)/[facility] Eos % 5.0 % [facility] Eosinophils Abs 0.3 0.0 - 0.4 x10(3)/[facility] Basophil % 0.9 % [facility] Baso Absolute 0.0 0.0 - 0.1 x10(3)/[facility] Immature Gran % 0.70 % [facility] Comment: Immature granulocytes(IG's)percentage and absolute count will include metamyelocytes, myelocytes, and promyelocytes. Blood smears from CBCs yielding IG's will be scanned manually for concordance. If this scan disagrees with the automated IG or if promyelocytes are noted, a manual differential will be performed. Immature Gran Absolute 0.04 0.00 - 0.04 x10(3)/mcL [facility] Blood specimen (specimen) 04/17/2018 4:43 AM EDT 04/17/2018 5:09 AM EDT Narrative Resulting Agency Comment Spec In Lab Apple Gutierrez MD HEMATOLOGY ORDERABLE S [facility] [place] [address] * (ABNORMAL) Hemogram (04/17/2018 4:43 AM EDT) White Blood Cell 5.6 4.0 - 9.5 x10(3)/mc L [facility] Red Blood Cell 2.47(L) 4.58 - 5.54 x10(6)/mc L [facility] Hemoglobin 7.5(L) 13.7 - 16.5 gm/dL [facility] Hematocrit 22.9(L) 40.5 - 48.5 % [facility] Mean Cell Volume 92.7 82.9 - 93.1 fL [facility] Mean Cell Hemoglobin 30.4 27.5 - 32.1 pg [facility] Mean Cell Hemoglobin Concentration 32.8 32.0 - 35.7 gm/dL [facility] Platelet 282 145 - 357 x10(3)/mc L [facility] RDW Standard Deviation 53.0(H) 36.0 - 45.0 fL [facility] RDW coefficient of variation 15.6(H) 11.4 - 13.8 % [facility] Mean Platelet Volume 8.3 7.6 - 12.9 fL [facility] NRBC% auto 0.0 % [facility] NRBC Absolute 0.000 0.000 - 0.000 x10(3)/mc L [facility] Blood specimen (specimen) 04/17/2018 4:43 AM EDT 04/17/2018 5:09 AM EDT Narrative Resulting Agency Comment Spec In Lab Apple Gutierrez MD HEMATOLOGY ORDERABLE S Performing Organization Address [facility] Co de Phone Number [facility] [place] [address] * APTT (04/17/2018 4:43 AM EDT) Partial Thromboplastin Time 27 25 - 37 sec [facility] Comment: The PTT is NOT appropriate for heparin monitoring. Use the Anti-Xa level for heparin monitoring (HEP UFH) or LMWH monitoring (HEP LMW). A PTT less than 37 seconds generally indicates adequate hemostasis. Blood specimen (specimen) 04/17/2018 4:43 AM EDT 04/17/2018 5:09 AM EDT Narrative Resulting Agency Comment Spec In Lab Chase Olvera MD HEMATOLOGY ORDERA BLES Performing Organization Address [facility] de Phone Number [facility] [place] [address] * Prothrombin Time (04/17/2018 4:43 AM EDT) Prothrombin Time 11.7 9.4 - 12.5 sec [facility] International Normalization Ratio 1.0 [facility] Comment: An INR <2.0 indicates [...] Lab Chase Olvera MD HEMATOLOGY ORDERA BLES [facility] [place] [address] * (ABNORMAL) Basic Metabolic Panel (non-fasting) (04/17/2018 4:43 AM EDT) Glucose 100 65 - 199 mg/dL [facility] Comment:Diabetes: >=200 mg/d L plus symptoms Blood Urea Nitrogen 32(H) 10 - 20 mg/dL [facility] Creatinine 2.27(H) 0.80 - 1.50 mg/dL [facility] Sodium 135 135 - 145 mmol/L [facility] Potassium 4.1 3.5 - 5.0 mmol/L [facility] Comment: Please note: ??Patients with WBC >100,000 may have falsely elevated Potassium levels. ??For accurate Potassium quantification in these patients send serum separator tube (gold top) for subsequent determinations. ??Contact the Clinical Chemistry Laboratory if there are any questions. Chloride 104 98 - 107 mmol/L [facility] Carbon Dioxide 19(L) 22 - 31 mmol/L [facility] Anion Gap 12 5 - 15 mmol/L [facility] Calcium 7.7(L) 8.5 - 10.5 mg/dL [facility] Est Glomerular Filtration Rate 31(L) >=60 mL/min/1. 73 m?? [facility] Comment: The eGFR was calculated using the CKD-EPI equation. As with all creatinine based estimates of kidney function, eGFR values calculated with the CKD-EPI equation are not accurate in patients with acute kidney failure, extremes of body mass or the acutely ill. [email or web address] eGFR 36(L) >=60 mL/min/1. 73 m?? [facility] Comment: The eGFR was calculated using the CKD-EPI equation. As with all creatinine based estimates of kidney function, eGFR values calculated with the CKD-EPI equation are not accurate in patients with acute kidney failure, extremes of body mass or the acutely ill. [email or web address] Blood specimen (specimen) 04/17/2018 4:43 AM EDT 04/17/2018 5:09 AM EDT Narrative Resulting Agency Comment Spec In Lab Hay Sparks MD CHEMISTRY ORDERABLES [facility] [place] [address] * (ABNORMAL) Differential, Automated (04/16/2018 4:17 AM EDT) Neutrophil % 59.4 % [facility] Neutrophil Absolute 3.07 1.70 - 6.10 x10(3)/mc L [facility] Lymph % 24.4 % [facility] Lymphocytes Abs 1.3 0.9 - 3.2 x10(3)/ L [facility] Monocyte % 10.3 % [facility] Monocyte Abs 0.5 0.3 - 0.9 x10(3)/mc L [facility] Eos % 4.5 % [facility] Eosinophils Abs 0.2 0.0 - 0.4 x10(3)/mc L [facility] Basophil % 0.4 % [facility] Baso Absolute 0.0 0.0 - 0.1 x10(3)/mc L [facility] Immature Gran % 1.00 % [facility] Comment: Immature granulocytes(IG's)percentage and absolute count will include metamyelocytes, myelocytes, and promyelocytes. Blood smears from CBCs yielding IG's will be scanned manually for concordance. If this scan disagrees with the automated IG or if promyelocytes are noted, a manual differential will be performed. Immature Gran Absolute 0.05(H) 0.00 - 0.04 x10(3)/mc L [facility] Blood specimen (specimen) 04/16/2018 4:17 AM EDT 04/16/2018 4:52 AM EDT Narrative Resulting Agency Comment Spec In Lab Apple Gutierrez MD HEMATOLOGY ORDERABLE S [facility] [place] [address] * (ABNORMAL) Hemogram (04/16/2018 4:17 AM EDT) White Blood Cell 5.2 4.0 - 9.5 x10(3)/[facility] Red Blood Cell 2.62(L) 4.58 - 5.54 x10(6)/[facility] Hemoglobin 7.9(L) 13.7 - 16.5 gm/dL [facility] Hematocrit 24.9(L) 40.5 - 48.5 % [facility] Mean Cell Volume 95.0(H) 82.9 - 93.1 fL [facility] Mean Cell Hemoglobin 30.2 27.5 - 32.1 pg [facility] Mean Cell Hemoglobin Concentration 31.7(L) 32.0 - 35.7 gm/dL [facility] Platelet 288 145 - 357 x10(3)/[facility] RDW Standard Deviation 52.6(H) 36.0 - 45.0 [facility] RDW coefficient of variation 15.4(H) 11.4 - 13.8 % [facility] Mean Platelet Volume 8.5 7.6 - 12.9 [facility] NRBC% auto 0.0 % [facility] NRBC Absolute 0.000 0.000 - 0.000 x10(3)/[facility] Blood specimen (specimen) 04/16/2018 4:17 AM EDT 04/16/2018 4:52 AM EDT Narrative Resulting Agency Comment Spec In Lab Apple Gutierrez MD HEMATOLOGY ORDERABLE S Performing Organization Address [facility]/ZIP Co de Phone Number [facility] [place] [address] * APTT (04/16/2018 4:17 AM EDT) Partial Thromboplastin Time 27 25 - 37 sec [facility] Comment: The PTT is NOT appropriate for heparin monitoring. Use the Anti-Xa level for heparin monitoring (HEP UFH) or LMWH monitoring (HEP LMW). A PTT less than 37 seconds generally indicates adequate hemostasis. Blood specimen (specimen) 04/16/2018 4:17 AM EDT 04/16/2018 4:52 AM EDT Narrative Resulting Agency Comment Spec In Lab Chase Olvera MD HEMATOLOGY ORDERA BLES Performing Organization Address [facility] Co de Phone Number [facility] [place] [address] * Prothrombin Time (04/16/2018 4:17 AM EDT) Prothrombin Time 11.5 9.4 - 12.5 sec [facility] International Normalization Ratio 1.0 [facility] Comment: An INR <2.0 indicates [...] MD HEMATOLOGY ORDERA BLES Performing Organization Address [facility]/ZIP Co de Phone Number [facility] [place] [address] * (ABNORMAL) Basic Metabolic Panel (non-fasting) (04/16/2018 4:17 AM EDT) Glucose 108 65 - 199 mg/dL [facility] Comment:Diabetes: >=200 mg/d L plus symptoms Blood Urea Nitrogen 31(H) 10 - 20 mg/dL [facility] Creatinine 2.27(H) 0.80 - 1.50 mg/dL [facility] Sodium 135 135 - 145 mmol/L [facility] Potassium 4.0 3.5 - 5.0 mmol/L [facility] Comment: Please note: ??Patients with WBC >100,000 may have falsely elevated Potassium levels. ??For accurate Potassium quantification in these patients send serum separator tube (gold top) for subsequent determinations. ??Contact the Clinical Chemistry Laboratory if there are any questions. Chloride 103 98 - 107 mmol/L [facility] Carbon Dioxide 20(L) 22 - 31 mmol/L [facility] Anion Gap 12 5 - 15 mmol/L [facility] Calcium 7.7(L) 8.5 - 10.5 mg/dL [facility] Est Glomerular Filtration Rate 31(L) >=60 mL/min/1. 73 m?? [facility] Comment: The eGFR was calculated using the CKD-EPI equation. As with all creatinine based estimates of kidney function, eGFR values calculated with the CKD-EPI equation are not accurate in patients with acute kidney failure, extremes of body mass or the acutely ill. [email or web address] eGFR 36(L) >=60 mL/min/1. 73 m?? [facility] Comment: The eGFR was calculated using the CKD-EPI equation. As with all creatinine based estimates of kidney function, eGFR values calculated with the CKD-EPI equation are not accurate in patients with acute kidney failure, extremes of body mass or the acutely ill. [email or web address] Blood specimen (specimen) 04/16/2018 4:17 AM EDT 04/16/2018 4:52 AM EDT Narrative Resulting Agency Comment Spec In Lab Hay Sparks MD CHEMISTRY ORDERABLES Performing Organization Address [facility]/ZIP Co de Phone Number [facility] [place] [address] * APTT (04/15/2018 4:57 AM EDT) Partial Thromboplastin Time 27 25 - 37 sec [facility] Comment: The PTT is NOT appropriate for heparin monitoring. Use the Anti-Xa level for heparin monitoring (HEP UFH) or LMWH monitoring (HEP LMW). A PTT less than 37 seconds generally indicates adequate hemostasis. Blood specimen (specimen) 04/15/2018 4:57 AM EDT 04/15/2018 5:23 AM EDT Narrative Resulting Agency Comment Spec In Lab Chase Olvera MD HEMATOLOGY ORDERA BLES Performing Organization Address [facility] Co de Phone Number [facility] [place] [address] * (ABNORMAL) Prothrombin Time (04/15/2018 4:57 AM EDT) Pathologist [facility] Prothrombin Time 12.9(H) 9.4 - 12.5 sec [facility] International Normalization Ratio 1.2 [facility] Comment: An INR <2.0 indicates [...] MD HEMATOLOGY ORDERA BLES Performing Organization Address [facility] Co de Phone Number [facility] [place] [address] * Differential, Automated (04/15/2018 4:47 AM EDT) Neutrophil % 59.8 % [facility] Neutrophil Absolute 2.98 1.70 - 6.10 x10(3)/[facility] Lymph % 22.4 % [facility] Lymphocytes Abs 1.1 0.9 - 3.2 x10(3)/[facility] Monocyte % 11.2 % [facility] Monocyte Abs 0.6 0.3 - 0.9 x10(3)/[facility] Eos % 5.6 % [facility] Eosinophils Abs 0.3 0.0 - 0.4 x10(3)/[facility] Basophil % 0.4 % [facility] Baso Absolute 0.0 0.0 - 0.1 x10(3)/[facility] Immature Gran % 0.60 % [facility] Comment: Immature granulocytes(IG's)percentage and absolute count will include metamyelocytes, myelocytes, and promyelocytes. Blood smears from CBCs yielding IG's will be scanned manually for concordance. If this scan disagrees with the automated IG or if promyelocytes are noted, a manual differential will be performed. Immature Gran Absolute 0.03 0.00 - 0.04 x10(3)/[facility] Blood specimen (specimen) 04/15/2018 4:47 AM EDT 04/15/2018 4:56 AM EDT Narrative Resulting Agency Comment Spec In Lab Apple Gutierrez MD HEMATOLOGY ORDERABLE S [facility] [place] [address] * (ABNORMAL) Hemogram (04/15/2018 4:47 AM EDT) White Blood Cell 5.0 4.0 - 9.5 x10(3)/mc L [facility] Red Blood Cell 2.48(L) 4.58 - 5.54 x10(6)/mc L [facility] Hemoglobin 7.5(L) 13.7 - 16.5 gm/dL [facility] Hematocrit 23.3(L) 40.5 - 48.5 % [facility] Mean Cell Volume 94.0(H) 82.9 - 93.1 [facility] Mean Cell Hemoglobin 30.2 27.5 - 32.1 pg [facility] Mean Cell Hemoglobin Concentration 32.2 32.0 - 35.7 gm/dL [facility] Platelet 224 145 - 357 x10(3)/mc L [facility] RDW Standard Deviation 52.9(H) 36.0 - 45.0 fL [facility] RDW coefficient of variation 15.4(H) 11.4 - 13.8 % [facility] Mean Platelet Volume 8.3 7.6 - 12.9 [facility] NRBC% auto 0.0 % [facility] NRBC Absolute 0.000 0.000 - 0.000 x10(3)/mc L [facility] Blood specimen (specimen) 04/15/2018 4:47 AM EDT 04/15/2018 4:56 AM EDT Narrative Resulting Agency Comment Spec In Lab Apple Gutierrez MD HEMATOLOGY ORDERABLE S [facility] [place] [address] * (ABNORMAL) Basic Metabolic Panel (non-fasting) (04/15/2018 4:47 AM EDT) Glucose 105 65 - 199 mg/dL [facility] Comment:Diabetes: >=200 mg/d L plus symptoms Blood Urea Nitrogen 30(H) 10 - 20 mg/dL [facility] Creatinine 2.17(H) 0.80 - 1.50 mg/dL [facility] Sodium 138 135 - 145 mmol/L [facility] Potassium 4.6 3.5 - 5.0 mmol/L [facility] Comment: Please note: ??Patients with WBC >100,000 may have falsely elevated Potassium levels. ??For accurate Potassium quantification in these patients send serum separator tube (gold top) for subsequent determinations. ??Contact the Clinical Chemistry Laboratory if there are any questions. Chloride 105 98 - 107 mmol/L [facility] Carbon Dioxide 20(L) 22 - 31 mmol/L [facility] Anion Gap 13 5 - 15 mmol/L [facility] Calcium 7.6(L) 8.5 - 10.5 mg/dL [facility] Est Glomerular Filtration Rate 33(L) >=60 mL/min/1. 73 m?? [facility] Comment: The eGFR was calculated using the CKD-EPI equation. As with all creatinine based estimates of kidney function, eGFR values calculated with the CKD-EPI equation are not accurate in patients with acute kidney failure, extremes of body mass or the acutely ill. [email or web address] eGFR 38(L) >=60 mL/min/1. 73 m?? [facility] Comment: The eGFR was calculated using the CKD-EPI equation. As with all creatinine based estimates of kidney function, eGFR values calculated with the CKD-EPI equation are not accurate in patients with acute kidney failure, extremes of body mass or the acutely ill. [email or web address] Blood specimen (specimen) 04/15/2018 4:47 AM EDT 04/15/2018 4:56 AM EDT Narrative Resulting Agency Comment Spec In Lab Hay Sparks MD CHEMISTRY ORDERABLES [facility] [place] [address] * (ABNORMAL) Differential, Automated (04/14/2018 5:48 AM EDT) Neutrophil % 68.9 % [facility] Neutrophil Absolute 3.74 1.70 - 6.10 x10(3)/mc L [facility] Lymph % 15.7 % [facility] Lymphocytes Abs 0.8(L) 0.9 - 3.2 x10(3)/[facility] LABORATORY Monocyte % 11.1 % [facility] Monocyte Abs 0.6 0.3 - 0.9 x10(3)/[facility] LABORATORY Eos % 3.7 % [facility] Eosinophils Abs 0.2 0.0 - 0.4 x10(3)/[facility] LABORATORY Basophil % 0.2 % [facility] Baso Absolute 0.0 0.0 - 0.1 x10(3)/[facility] LABORATORY Immature Gran % 0.40 % [facility] Comment: Immature granulocytes(IG's)percentage and absolute count will include metamyelocytes, myelocytes, and promyelocytes. Blood smears from CBCs yielding IG's will be scanned manually for concordance. If this scan disagrees with the automated IG or if promyelocytes are noted, a manual differential will be performed. Immature Gran Absolute 0.02 0.00 - 0.04 x10(3)/[facility] LABORATORY Blood specimen (specimen) 04/14/2018 5:48 AM EDT 04/14/2018 5:59 AM EDT Narrative Resulting Agency Comment Spec In Lab Apple Gutierrez MD HEMATOLOGY ORDERABLE S [facility] [place] [address] * (ABNORMAL) Hemogram (04/14/2018 5:48 AM EDT) White Blood Cell 5.4 4.0 - 9.5 x10(3)/[facility] LABOR[facility]ORY Red Blood Cell 2.48(L) 4.58 - 5.54 x10(6)/ L [facility] Hemoglobin 7.5(L) 13.7 - 16.5 gm/dL [facility] Hematocrit 22.9(L) 40.5 - 48.5 % [facility] Mean Cell Volume 92.3 82.9 - 93.1 fL [facility] Mean Cell Hemoglobin 30.2 27.5 - 32.1 pg [facility] Mean Cell Hemoglobin Concentration 32.8 32.0 - 35.7 gm/dL [facility] Platelet 208 145 - 357 x10(3)/mc L [facility] RDW Standard Deviation 51.8(H) 36.0 - 45.0 fL [facility] RDW coefficient of variation 15.4(H) 11.4 - 13.8 % [facility] Mean Platelet Volume 8.4 7.6 - 12.9 fL [facility] NRBC% auto 0.0 % [facility] NRBC Absolute 0.000 0.000 - 0.000 x10(3)/mc L [facility] Blood specimen (specimen) 04/14/2018 5:48 AM EDT 04/14/2018 5:59 AM EDT Narrative Resulting Agency Comment Spec In Lab Apple Gutierrez MD HEMATOLOGY ORDERABLE S Performing Organization Address [facility] [place] [address] * APTT (04/14/2018 5:48 AM EDT) Partial Thromboplastin Time 28 25 - 37 sec [facility] Comment: The PTT is NOT appropriate for heparin monitoring. Use the Anti-Xa level for heparin monitoring (HEP UFH) or LMWH monitoring (HEP LMW). A PTT less than 37 seconds generally indicates adequate hemostasis. Blood specimen (specimen) 04/14/2018 5:48 AM EDT 04/14/2018 5:59 AM EDT Narrative Resulting Agency Comment Spec In Lab Chase Olvera MD HEMATOLOGY ORDERA BLES Performing Organization Address [facility]/ZIP Co de Phone Number [facility] [place] [address] * (ABNORMAL) Prothrombin Time (04/14/2018 5:48 AM EDT) Prothrombin Time 15.1(H) 9.4 - 12.5 sec [facility] International Normalization Ratio 1.4 [facility] Comment: An INR <2.0 indicates [...] Lab Chase Olvera MD HEMATOLOGY ORDERA BLES [facility] [place] [address] * (ABNORMAL) Basic Metabolic Panel (non-fasting) (04/14/2018 5:48 AM EDT) Pathologist [facility] Glucose 110 65 - 199 mg/dL [facility] Comment:Diabetes: >=200 mg/d L plus symptoms Blood Urea Nitrogen 32(H) 10 - 20 mg/dL [facility] Creatinine 2.38(H) 0.80 - 1.50 mg/dL [facility] Sodium 138 135 - 145 mmol/L [facility] Potassium 4.1 3.5 - 5.0 mmol/L [facility] Comment: Please note: ??Patients with WBC >100,000 may have falsely elevated Potassium levels. ??For accurate Potassium quantification in these patients send serum separator tube (gold top) for subsequent determinations. ??Contact the Clinical Chemistry Laboratory if there are any questions. Chloride 106 98 - 107 mmol/L [facility] Carbon Dioxide 20(L) 22 - 31 mmol/L [facility] Anion Gap 12 5 - 15 mmol/L [facility] Calcium 7.6(L) 8.5 - 10.5 mg/dL [facility] Est Glomerular Filtration Rate 29(L) >=60 mL/min/1. 73 m?? [facility] Comment: The eGFR was calculated using the CKD-EPI equation. As with all creatinine based estimates of kidney function, eGFR values calculated with the CKD-EPI equation are not accurate in patients with acute kidney failure, extremes of body mass or the acutely ill. [email or web address] eGFR 34(L) >=60 mL/min/1. 73 m?? [facility] Comment: The eGFR was calculated using the CKD-EPI equation. As with all creatinine based estimates of kidney function, eGFR values calculated with the CKD-EPI equation are not accurate in patients with acute kidney failure, extremes of body mass or the acutely ill. [email or web address] Blood specimen (specimen) 04/14/2018 5:48 AM EDT 04/14/2018 5:59 AM EDT Narrative Resulting Agency Comment Spec In Lab Hay Sparks MD CHEMISTRY ORDERABLES [facility] [place] [address] * Differential, Automated (04/13/2018 8:14 AM EDT) Neutrophil % 66.0 % [facility] Neutrophil Absolute 3.49 1.70 - 6.10 x10(3)/[facility] LABORATORY Lymph % 16.3 % [facility] Lymphocytes Abs 0.9 0.9 - 3.2 x10(3)/[facility] LABORATORY Monocyte % 10.4 % [facility] Monocyte Abs 0.6 0.3 - 0.9 x10(3)/[facility] LABORATORY Eos % 6.3 % [facility] Eosinophils Abs 0.3 0.0 - 0.4 x10(3)/[facility] LABORATORY Basophil % 0.4 % [facility] Baso Absolute 0.0 0.0 - 0.1 x10(3)/[facility] LABORATORY Immature Gran % 0.60 % [facility] Comment: Immature granulocytes(IG's)percentage and absolute count will include metamyelocytes, myelocytes, and promyelocytes. Blood smears from CBCs yielding IG's will be scanned manually for concordance. If this scan disagrees with the automated IG or if promyelocytes are noted, a manual differential will be performed. Immature Gran Absolute 0.03 0.00 - 0.04 x10(3)/[facility] LABORATORY Blood specimen (specimen) 04/13/2018 8:14 AM EDT 04/13/2018 8:21 AM EDT Narrative Resulting Agency Comment Spec In Lab Apple Gutierrez MD HEMATOLOGY ORDERABLE S [facility] [place] [address] * (ABNORMAL) Hemogram (04/13/2018 8:14 AM EDT) White Blood Cell 5.3 4.0 - 9.5 x10(3)/mc L [facility] Red Blood Cell 2.53(L) 4.58 - 5.54 x10(6)/ L [facility] Hemoglobin 7.8(L) 13.7 - 16.5 gm/dL [facility] Hematocrit 23.3(L) 40.5 - 48.5 % [facility] Mean Cell Volume 92.1 82.9 - 93.1 fL [facility] Mean Cell Hemoglobin 30.8 27.5 - 32.1 pg [facility] Mean Cell Hemoglobin Concentration 33.5 32.0 - 35.7 gm/dL [facility] Platelet 190 145 - 357 x10(3)/ L [facility] RDW Standard Deviation 53.5(H) 36.0 - 45.0 fL [facility] RDW coefficient of variation 15.9(H) 11.4 - 13.8 % [facility] Mean Platelet Volume 8.2 7.6 - 12.9 fL [facility] NRBC% auto 0.0 % [facility] NRBC Absolute 0.000 0.000 - 0.000 x10(3)/mc L [facility] Blood specimen (specimen) 04/13/2018 8:14 AM EDT 04/13/2018 8:21 AM EDT Narrative Resulting Agency Comment Spec In Lab Apple Gutierrez MD HEMATOLOGY ORDERABLE S Performing Organization Address [facility]/ZIP Co de Phone Number [facility] [place] [address] * APTT (04/13/2018 8:14 AM EDT) Partial Thromboplastin Time 29 25 - 37 sec [facility] Comment: The PTT is NOT appropriate for heparin monitoring. Use the Anti-Xa level for heparin monitoring (HEP UFH) or LMWH monitoring (HEP LMW). A PTT less than 37 seconds generally indicates adequate hemostasis. Blood specimen (specimen) 04/13/2018 8:14 AM EDT 04/13/2018 8:21 AM EDT Narrative Resulting Agency Comment Spec In Lab Chase Olvera MD HEMATOLOGY ORDERA BLES [facility] [place] [address] * (ABNORMAL) Prothrombin Time (04/13/2018 8:14 AM EDT) Prothrombin Time 17.3(H) 9.4 - 12.5 sec [facility] International Normalization Ratio 1.6 [facility] Comment: An INR <2.0 indicates [...] Lab Chase Olvera MD HEMATOLOGY ORDERA BLES [facility] [place] [address] * (ABNORMAL) Basic Metabolic Panel (non-fasting) (04/13/2018 8:14 AM EDT) Glucose 108 65 - 199 mg/dL [facility] Comment:Diabetes: >=200 mg/d L plus symptoms Blood Urea Nitrogen 30(H) 10 - 20 mg/dL [facility] Creatinine 2.28(H) 0.80 - 1.50 mg/dL [facility] Sodium 138 135 - 145 mmol/L [facility] Potassium 4.5 3.5 - 5.0 mmol/L [facility] Comment: Please note: ??Patients with WBC >100,000 may have falsely elevated Potassium levels. ??For accurate Potassium quantification in these patients send serum separator tube (gold top) for subsequent determinations. ??Contact the Clinical Chemistry Laboratory if there are any questions. Chloride 104 98 - 107 mmol/L [facility] Carbon Dioxide 20(L) 22 - 31 mmol/L [facility] Anion Gap 14 5 - 15 mmol/L [facility] Calcium 7.7(L) 8.5 - 10.5 mg/dL [facility] Est Glomerular Filtration Rate 31(L) >=60 mL/min/1. 73 m?? [facility] Comment: The eGFR was calculated using the CKD-EPI equation. As with all creatinine based estimates of kidney function, eGFR values calculated with the CKD-EPI equation are not accurate in patients with acute kidney failure, extremes of body mass or the acutely ill. [email or web address] eGFR 36(L) >=60 mL/min/1. 73 m?? [facility] Comment: The eGFR was calculated using the CKD-EPI equation. As with all creatinine based estimates of kidney function, eGFR values calculated with the CKD-EPI equation are not accurate in patients with acute kidney failure, extremes of body mass or the acutely ill. [email or web address] Blood specimen (specimen) 04/13/2018 8:14 AM EDT 04/13/2018 8:21 AM EDT Narrative Resulting Agency Comment Spec In Lab Hay Sparks MD CHEMISTRY ORDERABLES Performing Organization Address [facility] de Phone Number [facility] [place] [address] * Tacrolimus level (04/13/2018 8:14 AM EDT) Tacrolimus <2.0 ng/mL [facility] Comment: Trough therapeutic: ??5-15 ng/mL Performed by ultra-performance liquid chromatography tandem mass spectrometry (UPLCMS/MS). This test was developed and its performance characteristics determined by [facility]. It has not been [...] MD CHEMISTRY ORDERAB LES Performing Organization Address [facility] Co de Phone Number [facility] [place] [address] * (ABNORMAL) Protein/Creatinine Ratio, urine (04/13/2018 3:45 AM EDT) Creatinine, Urine 51 mg/dL [facility] Protein, Urine 373(H) 0 - 12 mg/dL [facility] Protein / Creatinine Ratio, Urine 7.3 ratio [facility] Urine specimen (specimen) 04/13/2018 3:45 AM EDT 04/13/2018 3:55 AM EDT Narrative Resulting Agency Comment Spec In Lab Chase Olvera MD URINE ORDERABLES Performing Organization Address [facility] Co de Phone Number [facility] [place] [address] * (ABNORMAL) Urinalysis Microscopic Exam (04/13/2018 1:51 AM EDT) RBC, Urine 4(H) 0 - 3 /HPF [facility] WBC, Urine 1 0 - 3 /HPF [facility] Transitional Epithelial Cells, Urine <1 <=1 /HPF [facility] Hyaline Casts, Urine 4(H) 0 - 2 /LPF [facility] Urine specimen obtained by clean catch procedure (specimen) 04/13/2018 1:51 AM EDT 04/13/2018 1:58 AM EDT Narrative Resulting Agency Comment Spec In Lab Rasta Hernández MD URINE ORDERABLES Performing Organization Address [facility] Co de Phone Number [facility] [place] [address] * (ABNORMAL) Urinalysis with reflex Culture (04/13/2018 1:51 AM EDT) Glucose, Urine Dipstick Negative Negative mg/dL [facility] Protein, Urine Dipstick >=500(A) Negative mg/dL [facility] Bilirubin, Urine Dipstick Negative Negative mg/dL [facility] Comment: Clinical correlation required for positive Urine Bilirubin results as false positive may occur with some drugs and drug related products. If a false positive is suspected a serum total bilirubin should be considered if clinically indicated. Urobilinogen, Urine Dipstick Normal Normal mg/dL [facility] pH, Urn (dipstick) 7.0 5.0 - 8.0 [facility] Blood, Urine Dipstick Negative Negative mg/dL [facility] Ketone, Urine Dipstick Negative Negative mg/dL [facility] Nitrite, Urine Dipstick Negative Negative [facility] Leukocytes, Urine Dipstick Negative Negative [facility] Appearance, Urine Dipstick Clear Clear [facility] Specific [place] Urine Automated 1.017 1.002 - 1.030 [facility] Color, Urine Dipstick Yellow Yellow [facility] Reflex to Culture No [facility] Urine specimen obtained by clean catch procedure (specimen) 04/13/2018 1:51 AM EDT 04/13/2018 1:58 AM EDT Narrative Resulting Agency Comment Spec In Lab Chase Olvera MD URINE ORDERABLES Performing Organization Address City/State/[facility] Co de Phone Number [facility] [place] [address] * MRI Angiogram Neck wo Contrast (04/12/2018 [...] atherosclerosis, NO CONTRAST TECHNIQUE: MRA of the eek of Morales and MRA of the neck were performed without IV contrast, with kcea-ps-[id number] technique. ?? COMPARISON: MR head 04/07/2018 FINDINGS: MRA eek of Morales: The intracranial internal carotid arteries, vertebral arteries, basilar artery, superior cerebellar arteries are normal in course and caliber. The bilateral MARCUS, MCA, and [employer] DEVELOPER are normal in course and caliber. No focal stenosis caliber change or aneurysm.. MRA neck: Endf-eu-dkflsu imaging excludes the arch. Vertebral arteries, common carotid arteries, bilateral ECA, ICA are normal in course and caliber. Procedure Note Sabrina Vargas MD - 04/12/2018 EXAMINATION: MRI ANGIOGRAM HEAD WO CONTRAST (GENERIC), MRI ANGIOGRAM NECKWO CONTRAST CLINICAL HISTORY: question intra cranial atherosclerosis, NO CONTRAST TECHNIQUE: MRA of the eek of Morales and MRA of the neck were performed withoutIV contrast, with kgsg-da-wjdgog technique. COMPARISON: MR head 04/07/2018 FINDINGS: MRA eek of Morales: The intracranial internal carotid arteries, vertebral arteries, basilarartery, superior cerebellar arteries are normal in course and caliber. Thebilateral MARCUS, MCA, and [employer] DEVELOPER are normal in course and caliber. No focal stenosiscaliber change or aneurysm.. MRA neck: Cnya-ei-sxeatq imaging excludes the arch. Vertebral arteries, common carotid arteries, bilateral ECA, ICA are normalin course and caliber. IMPRESSION Normal MRA of the head and neck. I have personally reviewed the image(s) and the residents interpretationand agree with the findings, Sabrina Chcako MD at 04/12/2018 5:27 PM 5:27 PM [...] atherosclerosis, NO CONTRAST TECHNIQUE: MRA of the eek of Morales and MRA of the neck were performed without IV contrast, with vbey-[id number]-[id number] technique. ?? COMPARISON: MR head 04/07/2018 FINDINGS: MRA eek of Morales: The intracranial internal carotid arteries, vertebral arteries, basilar artery, superior cerebellar arteries are normal in course and caliber. The bilateral MARCUS, MCA, and [employer] DEVELOPER are normal in course and caliber. No focal stenosis caliber change or aneurysm.. MRA neck: Ooxs-ev-gssagc imaging excludes the arch. Vertebral arteries, common carotid arteries, bilateral ECA, ICA are normal in course and caliber. Procedure Note Sabrina Vargas MD - 04/12/2018 EXAMINATION: MRI ANGIOGRAM HEAD WO CONTRAST (GENERIC), MRI ANGIOGRAM NECKWO CONTRAST CLINICAL HISTORY: question intra cranial atherosclerosis, NO CONTRAST TECHNIQUE: MRA of the eek of Morales and MRA of the neck were performed withoutIV contrast, with omzf-su-pndpzf technique. COMPARISON: MR head 04/07/2018 FINDINGS: MRA eek of Morales: The intracranial internal carotid arteries, vertebral arteries, basilarartery, superior cerebellar arteries are normal in course and caliber. Thebilateral MARCUS, MCA, and [employer] DEVELOPER are normal in course and caliber. No focal stenosiscaliber change or aneurysm.. MRA neck: Okhl-bj-achaco imaging excludes the arch. Vertebral arteries, common carotid arteries, bilateral ECA, ICA are normalin course and caliber. IMPRESSION Normal MRA of the head and neck. I have personally reviewed the image(s) and the residents interpretationand agree with the findings, Sabrina Chacko MD at 04/12/2018 5:27 PM 5:27 PM Chase Olvera MD IMG MRI ORDERABLE S * Gold Tube HOLD (04/12/2018 8:40 AM EDT) [facility] Gold Hold Sample in lab. [facility] Blood specimen (specimen) Venous Draw / Unknown 04/12/2018 8:40 AM EDT 04/12/2018 9:16 AM EDT Apple Gutierrez MD CHEMISTRY ORDERABLES [facility] [place] [address] * (ABNORMAL) Differential, Automated (04/12/2018 8:40 AM EDT) Neutrophil % 65.6 % [facility] Neutrophil Absolute 3.27 1.70 - 6.10 x10(3)/mc L [facility] Lymph % 15.6 % [facility] Lymphocytes Abs 0.8(L) 0.9 - 3.2 x10(3)/ L [facility] Monocyte % 11.0 % [facility] Monocyte Abs 0.6 0.3 - 0.9 x10(3)/ L [facility] Eos % 6.6 % [facility] Eosinophils Abs 0.3 0.0 - 0.4 x10(3)/ L [facility] Basophil % 0.6 % [facility] Baso Absolute 0.0 0.0 - 0.1 x10(3)/ L [facility] Immature Gran % 0.60 % [facility] Comment: Immature granulocytes(IG's)percentage and absolute count will include metamyelocytes, myelocytes, and promyelocytes. Blood smears from CBCs yielding IG's will be scanned manually for concordance. If this scan disagrees with the automated IG or if promyelocytes are noted, a manual differential will be performed. Immature Gran Absolute 0.03 0.00 - 0.04 x10(3)/mc L [facility] Blood specimen (specimen) 04/12/2018 8:40 AM EDT 04/12/2018 9:15 AM EDT Narrative Resulting Agency Comment Spec In Lab Apple Gutierrez MD HEMATOLOGY ORDERABLE S [facility] [place] [address] * (ABNORMAL) Hemogram (04/12/2018 8:40 AM EDT) White Blood Cell 5.0 4.0 - 9.5 x10(3)/ L [facility] Red Blood Cell 2.60(L) 4.58 - 5.54 x10(6)/[facility] LAB[facility] Hemoglobin 7.9(L) 13.7 - 16.5 gm/dL [facility] Hematocrit 24.0(L) 40.5 - 48.5 % [facility] Mean Cell Volume 92.3 82.9 - 93.1 fL [facility] Mean Cell Hemoglobin 30.4 27.5 - 32.1 pg [facility] Mean Cell Hemoglobin Concentration 32.9 32.0 - 35.7 gm/dL [facility] Platelet 183 145 - 357 x10(3)/[facility] LABORATORY RDW Standard Deviation 54.2(H) 36.0 - 45.0 [facility] LAB[facility] RDW coefficient of variation 16.0(H) 11.4 - 13.8 % [facility] Mean Platelet Volume 8.8 7.6 - 12.9 [facility] NRBC% auto 0.0 % [facility] NRBC Absolute 0.000 0.000 - 0.000 x10(3)/[facility] LAB[facility] Blood specimen (specimen) 04/12/2018 8:40 AM EDT 04/12/2018 9:15 AM EDT Narrative Resulting Agency Comment Spec In Lab Apple Gutierrez MD HEMATOLOGY ORDERABLE S [facility] [place] [address] * APTT (04/12/2018 8:40 AM EDT) [facility] Partial Thromboplastin Time 32 25 - 37 sec [facility] Comment: The PTT is NOT appropriate for heparin monitoring. Use the Anti-Xa level for heparin monitoring (HEP UFH) or LMWH monitoring (HEP LMW). A PTT less than 37 seconds generally indicates adequate hemostasis. Blood specimen (specimen) 04/12/2018 8:40 AM EDT 04/12/2018 9:15 AM EDT Narrative Resulting Agency Comment Spec In Lab Chase Olvera MD HEMATOLOGY ORDERA BLES Performing Organization Address [facility] de Phone Number [facility] [place] [address] * (ABNORMAL) Prothrombin Time (04/12/2018 8:40 AM EDT) Prothrombin Time 20.0(H) 9.4 - 12.5 sec [facility] International Normalization Ratio 1.8 [facility] Comment: An INR <2.0 indicates [...] MD HEMATOLOGY ORDERA BLES Performing Organization Address [facility] Co de Phone Number [facility] [place] [address] * (ABNORMAL) Basic Metabolic Panel (non-fasting) (04/12/2018 8:40 AM EDT) Glucose 113 65 - 199 mg/dL [facility] Comment:Diabetes: >=200 mg/d L plus symptoms Blood Urea Nitrogen 31(H) 10 - 20 mg/dL [facility] Creatinine 2.35(H) 0.80 - 1.50 mg/dL [facility] Sodium 140 135 - 145 mmol/L [facility] Potassium 4.4 3.5 - 5.0 mmol/L [facility] Comment: Please note: ??Patients with WBC >100,000 may have falsely elevated Potassium levels. ??For accurate Potassium quantification in these patients send serum separator tube (gold top) for subsequent determinations. ??Contact the Clinical Chemistry Laboratory if there are any questions. Chloride 106 98 - 107 mmol/L [facility] Carbon Dioxide 20(L) 22 - 31 mmol/L [facility] Anion Gap 14 5 - 15 mmol/L [facility] Calcium 7.4(L) 8.5 - 10.5 mg/dL [facility] Est Glomerular Filtration Rate 30(L) >=60 mL/min/1. 73 m?? [facility] Comment: The eGFR was calculated using the CKD-EPI equation. As with all creatinine based estimates of kidney function, eGFR values calculated with the CKD-EPI equation are not accurate in patients with acute kidney failure, extremes of body mass or the acutely ill. [email or web address] eGFR 35(L) >=60 mL/min/1. 73 m?? [facility] Comment: The eGFR was calculated using the CKD-EPI equation. As with all creatinine based estimates of kidney function, eGFR values calculated with the CKD-EPI equation are not accurate in patients with acute kidney failure, extremes of body mass or the acutely ill. [email or web address] Blood specimen (specimen) 04/12/2018 8:40 AM EDT 04/12/2018 9:15 AM EDT Narrative Resulting Agency Comment Spec In Lab Hay Sparks MD CHEMISTRY ORDERABLES [facility] [place] [address] * ECHO COMPLETE (04/11/2018 2:53 PM EDT) EF 65 HEARTLAB SYSTEM Anatomical Region Laterality Modality Other 04/11/2018 Narrative 04/11/2018 3:21 PM EDT Amended Report Procedure: ?Transthoracic Echocardiogram Patient: ?ARNOL HARRISON Ginna ? (Age): 1960(57y) Med Rec#: ? [id number] ?Sex: ?M ? Site Loc: ? [facility] ?Ht / Wt: ??178(cm)/91.6(kg Pt. Loc: ?Adult Floor ? BSA: ?2.1 Study Date: ?? 04/11/2018 ?Pt. Type: Outpatient Tape: ? Referring: Lida Peter Reading: Tim Estrella ([id number]) Automatic [employer] Cutting Machine Operator: Chidi Steve [facility] [employer] Cutting [employer] Operator 2: Yimi Norman Diagnosis: *Cerebral infarction [...] ? Mid-Inferior ?Normal ? Mid-Inferoseptal ?Normal ? Freedom-Septal ? Normal ? Freedom-Anterior ? Normal ? Freedom-Lateral ?Normal ? Freedom-Inferior ? Normal ? Freedom-Tip ?Normal ? This report has been electronically signed by: Tim Estrella M.D. ? 04/11/2018 15:21:34 Images reviewed and interpretation verified [facility] Cardiac Ultrasound Laboratory Procedure Note Tim Estrella MD - 04/11/2018 Amended Report Procedure: Transthoracic Echocardiogram Patient: ARNOL Chacko DOB(Age): 1960(57y) Med Rec#: [id number] Sex: M [facility] Loc[facility] Ht / Wt: 178(cm)/91.6(kg Pt. Loc: Adult Floor BSA: 2.1 Study Date: 04/11/2018 Pt. Type: Outpatient Tape: Referring: Lida Peter Reading: Tim Estrella ([id number]) Automatic [employer] Cutting Machine Operator: Chidi Steve [facility] Automatic [employer] Cutting Machine Operator 2: Yimi Norman Diagnosis: *Cerebral infarction [...] Normal Mid-Posterolateral Normal Mid-Inferior Normal Mid-Inferoseptal Normal Freedom-Septal Normal Freedom-Anterior Normal Freedom-Lateral Normal Freedom-Inferior Normal Freedom-Tip Normal This report has been electronically signed by: Tim Estrella M.D. 04/11/2018 15:21:34 Images reviewed and interpretation verified [facility] Card[facility] Ul[facility]ound [facility] Lida Peter MD ECHO ORDERABLES * ABORH Recheck Status (04/11/2018 6:28 AM EDT) ABORH Type Recheck Completed [facility] Blood specimen (specimen) 04/11/2018 6:28 AM EDT 04/11/2018 6:28 AM EDT Narrative Resulting Agency Comment Spec In Lab Hanny Wiseman MD BLOOD BANK LAB ORDER KELLY [facility] [place] [address] * Antibody screen (04/11/2018 6:28 AM EDT) Ab Screen Interp Negative [facility] Expires at [id number] on: 04/14/2018 [facility] Blood specimen (specimen) 04/11/2018 6:28 AM EDT 04/11/2018 6:28 AM EDT Narrative Resulting Agency Comment Spec In Lab Hanny Wiseman MD BLOOD BANK LAB ORDER KELLY [facility] [place] [address] * ABO/Rh Typing (04/11/2018 6:28 AM EDT) ABORH Type A Pos [facility] Blood specimen (specimen) 04/11/2018 6:28 AM EDT 04/11/2018 6:28 AM EDT Narrative Resulting Agency Comment Spec In Lab Hanny Wiseman MD BLOOD BANK LAB ORDER KELLY Performing Organization Address [facility]/ZIP Co de Phone Number [facility] [place] [address] * (ABNORMAL) Differential, Automated (04/11/2018 5:55 AM EDT) Pathologist [facility] Neutrophil % 68.9 % [facility] Neutrophil Absolute 3.90 1.70 - 6.10 x10(3)/mc L [facility] Lymph % 14.7 % [facility] Lymphocytes Abs 0.8(L) 0.9 - 3.2 x10(3)/mc L [facility] Monocyte % 10.6 % [facility] Monocyte Abs 0.6 0.3 - 0.9 x10(3)/mc L [facility] Eos % 4.9 % [facility] Eosinophils Abs 0.3 0.0 - 0.4 x10(3)/mc L [facility] Basophil % 0.4 % [facility] Baso Absolute 0.0 0.0 - 0.1 x10(3)/mc L [facility] Immature Gran % 0.50 % [facility] Comment: Immature granulocytes(IG's)percentage and absolute count will include metamyelocytes, myelocytes, and promyelocytes. Blood smears from CBCs yielding IG's will be scanned manually for concordance. If this scan disagrees with the automated IG or if promyelocytes are noted, a manual differential will be performed. Immature Gran Absolute 0.03 0.00 - 0.04 x10(3)/ L [facility] Blood specimen (specimen) 04/11/2018 5:55 AM EDT 04/11/2018 6:03 AM EDT Narrative Resulting Agency Comment Spec In Lab Apple Gutierrez MD HEMATOLOGY ORDERABLE S [facility] [place] [address] * (ABNORMAL) Hemogram (04/11/2018 5:55 AM EDT) White Blood Cell 5.7 4.0 - 9.5 x10(3)/[facility] Red Blood Cell 2.44(L) 4.58 - 5.54 x10(6)/[facility] Hemoglobin 7.4(L) 13.7 - 16.5 gm/dL [facility] Hematocrit 22.2(L) 40.5 - 48.5 % [facility] Mean Cell Volume 91.0 82.9 - 93.1 [facility] Mean Cell Hemoglobin 30.3 27.5 - 32.1 pg [facility] Mean Cell Hemoglobin Concentration 33.3 32.0 - 35.7 gm/dL [facility] Platelet 150 145 - 357 x10(3)/[facility] RDW Standard Deviation 52.6(H) 36.0 - 45.0 [facility] RDW coefficient of variation 15.9(H) 11.4 - 13.8 % [facility] Mean Platelet Volume 9.1 7.6 - 12.9 [facility] NRBC% auto 0.0 % [facility] NRBC Absolute 0.000 0.000 - 0.000 x10(3)/ L [facility] Blood specimen (specimen) 04/11/2018 5:55 AM EDT 04/11/2018 6:03 AM EDT Narrative Resulting Agency Comment Spec In Lab Apple Gutierrez MD HEMATOLOGY ORDERABLE S Performing Organization Address [facility]/ZIP Co de Phone Number [facility] [place] [address] * APTT (04/11/2018 5:55 AM EDT) Partial Thromboplastin Time 37 25 - 37 sec [facility] Comment: The PTT is NOT appropriate for heparin monitoring. Use the Anti-Xa level for heparin monitoring (HEP UFH) or LMWH monitoring (HEP LMW). A PTT less than 37 seconds generally indicates adequate hemostasis. Blood specimen (specimen) 04/11/2018 5:55 AM EDT 04/11/2018 6:04 AM EDT Narrative Resulting Agency Comment Spec In Lab Chase Olvera MD HEMATOLOGY ORDERA BLES Performing Organization Address [facility] Co de Phone Number [facility] [place] [address] * (ABNORMAL) Prothrombin Time (04/11/2018 5:55 AM EDT) Prothrombin Time 26.8(H) 9.4 - 12.5 sec [facility] International Normalization Ratio 2.4 [facility] Comment: An INR <2.0 indicates [...] Organization Address City/[facility] Co de Phone Number [facility] [place] [address] * (ABNORMAL) Basic Metabolic Panel (non-fasting) (04/11/2018 5:55 AM EDT) Glucose 112 65 - 199 mg/dL [facility] Comment:Diabetes: >=200 mg/d L plus symptoms Blood Urea Nitrogen 33(H) 10 - 20 mg/dL [facility] Creatinine 2.33(H) 0.80 - 1.50 mg/dL [facility] Sodium 144 135 - 145 mmol/L [facility] Potassium 4.5 3.5 - 5.0 mmol/L [facility] Comment: Please note: ??Patients with WBC >100,000 may have falsely elevated Potassium levels. ??For accurate Potassium quantification in these patients send serum separator tube (gold top) for subsequent determinations. ??Contact the Clinical Chemistry Laboratory if there are any questions. Chloride 110(H) 98 - 107 mmol/L [facility] Carbon Dioxide 22 22 - 31 mmol/L [facility] Anion Gap 12 5 - 15 mmol/L [facility] Calcium 7.3(L) 8.5 - 10.5 mg/dL [facility] Est Glomerular Filtration Rate 30(L) >=60 mL/min/1. 73 m?? [facility] Comment: The eGFR was calculated using the CKD-EPI equation. As with all creatinine based estimates of kidney function, eGFR values calculated with the CKD-EPI equation are not accurate in patients with acute kidney failure, extremes of body mass or the acutely ill. [email or web address] eGFR 35(L) >=60 mL/min/1. 73 m?? [facility] Comment: The eGFR was calculated using the CKD-EPI equation. As with all creatinine based estimates of kidney function, eGFR values calculated with the CKD-EPI equation are not accurate in patients with acute kidney failure, extremes of body mass or the acutely ill. [email or web address] Blood specimen (specimen) 04/11/2018 5:55 AM EDT 04/11/2018 6:04 AM EDT Narrative Resulting Agency Comment Spec In Lab Hay Sparks MD CHEMISTRY ORDERABLES [facility] [place] [address] * POCT Glucose (04/10/2018 7:56 AM EDT) [facility] Glucose, POC 119 65 - 199 mg/dL [facility] Comment: Supplemental ranges: <140 mg/dL before meals <180 mg/dL all other times of the day Blood specimen (specimen) 04/10/2018 7:56 AM EDT 04/10/2018 7:56 AM EDT Chase Olvera MD POINT OF CARE SHAZIA T ORDERABLES Performing Organization Address [facility]/ZIP Co de Phone Number [facility] [place] [address] * (ABNORMAL) Differential, Automated (04/10/2018 5:35 AM EDT) [facility] Neutrophil % 72.4 % [facility] Neutrophil Absolute 4.21 1.70 - 6.10 x10(3)/mc L [facility] Lymph % 12.7 % [facility] Lymphocytes Abs 0.7(L) 0.9 - 3.2 x10(3)/mc L [facility] Monocyte % 9.1 % [facility] Monocyte Abs 0.5 0.3 - 0.9 x10(3)/mc L [facility] Eos % 5.0 % [facility] Eosinophils Abs 0.3 0.0 - 0.4 x10(3)/mc L [facility] Basophil % 0.3 % [facility] Baso Absolute 0.0 0.0 - 0.1 x10(3)/mc L [facility] Immature Gran % 0.50 % [facility] Comment: Immature granulocytes(IG's)percentage and absolute count will include metamyelocytes, myelocytes, and promyelocytes. Blood smears from CBCs yielding IG's will be scanned manually for concordance. If this scan disagrees with the automated IG or if promyelocytes are noted, a manual differential will be performed. Immature Gran Absolute 0.03 0.00 - 0.04 x10(3)/mc L [facility] Blood specimen (specimen) 04/10/2018 5:35 AM EDT 04/10/2018 6:09 AM EDT Narrative Resulting Agency Comment Spec In Lab Apple Gutierrez MD HEMATOLOGY ORDERABLE S [facility] [place] [address] * (ABNORMAL) Hemogram (04/10/2018 5:35 AM EDT) White Blood Cell 5.8 4.0 - 9.5 x10(3)/mc L [facility] Red Blood Cell 2.44(L) 4.58 - 5.54 x10(6)/mc L [facility] Hemoglobin 7.3(L) 13.7 - 16.5 gm/dL [facility] Hematocrit 22.0(L) 40.5 - 48.5 % [facility] Mean Cell Volume 90.2 82.9 - 93.1 fL [facility] Mean Cell Hemoglobin 29.9 27.5 - 32.1 pg [facility] Mean Cell Hemoglobin Concentration 33.2 32.0 - 35.7 gm/dL [facility] Platelet 105(L) 145 - 357 x10(3)/mc L [facility] RDW Standard Deviation 52.6(H) 36.0 - 45.0 [facility] RDW coefficient of variation 15.9(H) 11.4 - 13.8 % [facility] Mean Platelet Volume 9.6 7.6 - 12.9 fL [facility] NRBC% auto 0.0 % [facility] NRBC Absolute 0.000 0.000 - 0.000 x10(3)/mc L [facility] Blood specimen (specimen) 04/10/2018 5:35 AM EDT 04/10/2018 6:09 AM EDT Narrative Resulting Agency Comment Spec In Lab Apple Gutierrez MD HEMATOLOGY ORDERABLE S Performing Organization Address [facility] Co de Phone Number [facility] [place] [address] * APTT (04/10/2018 5:35 AM EDT) Partial Thromboplastin Time 36 25 - 37 sec [facility] Comment: The PTT is NOT appropriate for heparin monitoring. Use the Anti-Xa level for heparin monitoring (HEP UFH) or LMWH monitoring (HEP LMW). A PTT less than 37 seconds generally indicates adequate hemostasis. Blood specimen (specimen) 04/10/2018 5:35 AM EDT 04/10/2018 6:09 AM EDT Narrative Resulting Agency Comment Spec In Lab Chase Olvera MD HEMATOLOGY ORDERA BLES Performing Organization Address [facility] de Phone Number [facility] [place] [address] * (ABNORMAL) Prothrombin Time (04/10/2018 5:35 AM EDT) Prothrombin Time 28.7(H) 9.4 - 12.5 sec [facility] International Normalization Ratio 2.6 [facility] Comment: An INR <2.0 indicates [...] Narrative Resulting Agency Comment Spec In Lab Chsae Olvera MD HEMATOLOGY ORDERA BLES [facility] [place] [address] * (ABNORMAL) Basic Metabolic Panel (non-fasting) (04/10/2018 5:35 AM EDT) Glucose 112 65 - 199 mg/dL [facility] Comment:Diabetes: >=200 mg/d L plus symptoms Blood Urea Nitrogen 33(H) 10 - 20 mg/dL [facility] Creatinine 2.59(H) 0.80 - 1.50 mg/dL [facility] Sodium 144 135 - 145 mmol/L [facility] Potassium 4.3 3.5 - 5.0 mmol/L [facility] Comment: Please note: ??Patients with WBC >100,000 may have falsely elevated Potassium levels. ??For accurate Potassium quantification in these patients send serum separator tube (gold top) for subsequent determinations. ??Contact the Clinical Chemistry Laboratory if there are any questions. Chloride 109(H) 98 - 107 mmol/L [facility] Carbon Dioxide 23 22 - 31 mmol/L [facility] Anion Gap 12 5 - 15 mmol/L [facility] Calcium 7.9(L) 8.5 - 10.5 mg/dL [facility] Est Glomerular Filtration Rate 27(L) >=60 mL/min/1. 73 m?? [facility] Comment: The eGFR was calculated using the CKD-EPI equation. As with all creatinine based estimates of kidney function, eGFR values calculated with the CKD-EPI equation are not accurate in patients with acute kidney failure, extremes of body mass or the acutely ill. [email or web address] eGFR 31(L) >=60 mL/min/1. 73 m?? [facility] Comment: The eGFR was calculated using the CKD-EPI equation. As with all creatinine based estimates of kidney function, eGFR values calculated with the CKD-EPI equation are not accurate in patients with acute kidney failure, extremes of body mass or the acutely ill. [email or web address] Blood specimen (specimen) 04/10/2018 5:35 AM EDT 04/10/2018 6:09 AM EDT Narrative Resulting Agency Comment Spec In Lab Hay Sparks MD CHEMISTRY ORDERABLES Performing Organization Address [facility]/ZIP Co de Phone Number [facility] [place] [address] * POCT Glucose (04/09/2018 8:26 PM EDT) Glucose, POC 137 65 - 199 mg/dL [facility] Comment: Supplemental ranges: <140 mg/dL before meals <180 mg/dL all other times of the day Blood specimen (specimen) 04/09/2018 8:26 PM EDT 04/09/2018 8:26 PM EDT Chase Olvera MD POINT OF CARE SHAZIA T ORDERABLES Performing Organization Address [facility] Co de Phone Number [facility] [place] [address] * APTT (04/09/2018 8:25 PM EDT) Partial Thromboplastin Time 37 25 - 37 sec [facility] Comment: The PTT is NOT appropriate for heparin monitoring. Use the Anti-Xa level for heparin monitoring (HEP UFH) or LMWH monitoring (HEP LMW). A PTT less than 37 seconds generally indicates adequate hemostasis. Blood specimen (specimen) 04/09/2018 8:25 PM EDT 04/09/2018 8:30 PM EDT Narrative Resulting Agency Comment Spec In Lab Lida Peter MD HEMATOLOGY ORDERABLE S Performing Organization Address [facility] Co de Phone Number [facility] [place] [address] * (ABNORMAL) Prothrombin Time (04/09/2018 8:25 PM EDT) Prothrombin Time 30.4(H) 9.4 - 12.5 sec [facility] International Normalization Ratio 2.7 [facility] Comment: An INR <2.0 indicates [...] HEMATOLOGY ORDERABLE S Performing Organization Address [facility] Co de Phone Number [facility] [place] [address] * Transfuse thawed plasma (04/09/2018 6:04 PM EDT) Lida Peter MD NURSING TREATMENT OR DERABLES - BLOOD ADMIN * Transfuse thawed plasma (04/09/2018 4:29 PM EDT) Lida Peter MD NURSING TREATMENT OR DERABLES - BLOOD ADMIN * Transfuse thawed plasma (04/09/2018 1:52 PM EDT) Chase Olvera MD NURSING TREATMENT ORDERABLES - BLOOD ADMIN * Prepare thawed plasma (04/09/2018 11:05 AM EDT) Dispensed? Yes [facility] Blood specimen (specimen) 04/09/2018 11:05 AM EDT 04/09/2018 11:07 AM EDT Lida Peter MD BLOOD BANK PRODUCT O RDERABLES Performing Organization Address [facility] Co de Phone Number [facility] [place] [address] * (ABNORMAL) APTT (04/09/2018 10:03 AM EDT) Partial Thromboplastin Time 39(H) 25 - 37 sec [facility] Comment: The PTT is NOT appropriate for heparin monitoring. Use the Anti-Xa level for heparin monitoring (HEP UFH) or LMWH monitoring (HEP LMW). A PTT less than 37 seconds generally indicates adequate hemostasis. Blood specimen (specimen) 04/09/2018 10:03 AM EDT 04/09/2018 10:13 AM EDT Narrative Resulting Agency Comment Spec In Lab Lida Peter MD HEMATOLOGY ORDERABLE S Performing Organization Address [facility] Co de Phone Number [facility] [place] [address] * (ABNORMAL) Prothrombin Time (04/09/2018 10:03 AM EDT) Prothrombin Time 47.7(H) 9.4 - 12.5 sec [facility] International Normalization Ratio 4.2 [facility] Comment: An INR <2.0 indicates [...] HEMATOLOGY ORDERABLE S Performing Organization Address [facility]/ZIP Co de Phone Number [facility] [place] [address] * Differential, Automated (04/09/2018 3:05 AM EDT) Neutrophil % 74.9 % [facility] Neutrophil Absolute 6.08 1.70 - 6.10 x10(3)/mcL [facility] Lymph % 12.2 % [facility] Lymphocytes Abs 1.0 0.9 - 3.2 x10(3)/[facility] Monocyte % 8.7 % [facility] Monocyte Abs 0.7 0.3 - 0.9 x10(3)/[facility] Eos % 3.2 % [facility] Eosinophils Abs 0.3 0.0 - 0.4 x10(3)/[facility] Basophil % 0.5 % [facility] Baso Absolute 0.0 0.0 - 0.1 x10(3)/[facility] Immature Gran % 0.50 % [facility] Comment: Immature granulocytes(IG's)percentage and absolute count will include metamyelocytes, myelocytes, and promyelocytes. Blood smears from CBCs yielding IG's will be scanned manually for concordance. If this scan disagrees with the automated IG or if promyelocytes are noted, a manual differential will be performed. Immature Gran Absolute 0.04 0.00 - 0.04 x10(3)/[facility] Blood specimen (specimen) 04/09/2018 3:05 AM EDT 04/09/2018 3:13 AM EDT Narrative Resulting Agency Comment Spec In Lab Apple Gutierrez MD HEMATOLOGY ORDERABLE S [facility] [place] [address] * (ABNORMAL) Hemogram (04/09/2018 3:05 AM EDT) White Blood Cell 8.1 4.0 - 9.5 x10(3)/mc L [facility] Red Blood Cell 2.55(L) 4.58 - 5.54 x10(6)/mc L [facility] Hemoglobin 7.8(L) 13.7 - 16.5 gm/dL [facility] Hematocrit 22.8(L) 40.5 - 48.5 % [facility] Mean Cell Volume 89.4 82.9 - 93.1 fL [facility] Mean Cell Hemoglobin 30.6 27.5 - 32.1 pg [facility] Mean Cell Hemoglobin Concentration 34.2 32.0 - 35.7 gm/dL [facility] Platelet 100(L) 145 - 357 x10(3)/mc L [facility] RDW Standard Deviation 53.7(H) 36.0 - 45.0 fL [facility] RDW coefficient of variation 16.6(H) 11.4 - 13.8 % [facility] Mean Platelet Volume 8.9 7.6 - 12.9 fL [facility] NRBC% auto 0.0 % [facility] NRBC Absolute 0.000 0.000 - 0.000 x10(3)/mc L [facility] Blood specimen (specimen) 04/09/2018 3:05 AM EDT 04/09/2018 3:13 AM EDT Narrative Resulting Agency Comment Spec In Lab Apple Gutierrez MD HEMATOLOGY ORDERABLE S [facility] [place] [address] * (ABNORMAL) Basic Metabolic Panel (non-fasting) (04/09/2018 3:05 AM EDT) Glucose 122 65 - 199 mg/dL [facility] Comment:Diabetes: >=200 mg/d L plus symptoms Blood Urea Nitrogen 44(H) 10 - 20 mg/dL [facility] Creatinine 3.00(H) 0.80 - 1.50 mg/dL [facility] Sodium 146(H) 135 - 145 mmol/L [facility] Potassium 4.9 3.5 - 5.0 mmol/L [facility] Comment: Please note: ??Patients with WBC >100,000 may have falsely elevated Potassium levels. ??For accurate Potassium quantification in these patients send serum separator tube (gold top) for subsequent determinations. ??Contact the Clinical Chemistry Laboratory if there are any questions. Chloride 110(H) 98 - 107 mmol/L [facility] Carbon Dioxide 21(L) 22 - 31 mmol/L [facility] Anion Gap 15 5 - 15 mmol/L [facility] Calcium 7.7(L) 8.5 - 10.5 mg/dL [facility] Est Glomerular Filtration Rate 22(L) >=60 mL/min/1. 73 m?? [facility] Comment: The eGFR was calculated using the CKD-EPI equation. As with all creatinine based estimates of kidney function, eGFR values calculated with the CKD-EPI equation are not accurate in patients with acute kidney failure, extremes of body mass or the acutely ill. [email or web address] eGFR 26(L) >=60 mL/min/1. 73 m?? [facility] Comment: The eGFR was calculated using the CKD-EPI equation. As with all creatinine based estimates of kidney function, eGFR values calculated with the CKD-EPI equation are not accurate in patients with acute kidney failure, extremes of body mass or the acutely ill. [email or web address] Blood specimen (specimen) 04/09/2018 3:05 AM EDT 04/09/2018 3:13 AM EDT Narrative Resulting Agency Comment Spec In Lab Hay Sparks MD CHEMISTRY ORDERABLES [facility] [place] [address] * Lavender Tube HOLD (04/08/2018 8:10 PM EDT) Lavender Hold Sample in lab. [facility] Blood specimen (specimen) Venous Draw / Unknown 04/08/2018 8:10 PM EDT 04/08/2018 8:26 PM EDT John Rose MD HEMATOLOGY ORDERABLE S [facility] [place] [address] * (ABNORMAL) Phenytoin level, total and free (04/08/2018 8:10 PM EDT) Phenytoin 7.3(L) 10.0 - 20.0 mg/L [facility] Comment: Theraputic range: ??10-20 mg/L Toxic: ??> 25 mg/L Patients with renal dysfunction (e.g.creatinine clearance < 30 mls/min) may show falsely elevated results due to accumulation of metabolites in renal failure Phenytoin, Free 0.95(L) 1.00 - 2.00 mg/L [facility] Comment: Therapeutic range: ? Free phenytoin: ??1.00-2.00 mg/L ? % Free phenytoin: ??8-12% Toxic range: ? Free phenytoin: ??>3.00 mg/L This test was developed and its performance characteristics determined by [facility]. It has not been cleared or approved by the FDA. The laboratory is regulated under CLIA as qualified to perform high-complexity testing. This test is used for clinical purposes. It should not be regarded as investigational or for research. Phenyt Free % 13(H) 8 - 12 % [facility] Comment: This test was developed and its performance characteristics determined by [facility]. It has not been cleared or [...] Peter MD CHEMISTRY ORDERABLES Performing Organization Address [facility]/ZIP Co de Phone Number [facility] [place] [address] * Transfuse RBC (04/08/2018 4:59 PM EDT) Lida Peter MD NURSING TREATMENT OR DERABLES - BLOOD ADMIN * Transfuse RBC (04/08/2018 4:59 PM EDT) Lida Peter MD NURSING TREATMENT OR DERABLES - BLOOD ADMIN * EEG awake, asleep, drowsy, routine (04/08/2018 3:45 PM EDT) Narrative Beth Colunga - 04/08/2018 3:45 PM EDT Beth Colunga ? 04/08/2018 ??3:45 PM [facility] Department of Neurology In Patient [...] channel digitized electroencephalogram was performed in the [facility] Clinical Neurophysiology Laboratory. The 10/20 international system of electrode placement was used and bipolar and referential electrode montages were recorded. ??In addition to EEG the patient was monitored for EKG and lateral/vertical eye movements. Video was recorded during the session. The duration of the recording was 30 minutes. VANSTONE MACHINE OPERATOR'S REPORT: Performed by: AT Patient was not sleep deprived. Sleep was not attained. Photic stimulation was performed. Hyperventilation was not performed. Effort was was not adequate. Movement and other artifact was not significant. Comments: none Lida Peter MD NEUROLOGY ORDERABLES * Carotid Duplex, Bilateral (04/08/2018 2:49 PM EDT) VB Text Report Department: Vascular Surgery Lab Patient: [id number] (ARNOL, CHRISTY) CPT: 84353 ICD10: I63.9 Referring Physician: LIDA PETER ?? [...] Peter MD VASCULAR ORDERABLES Performing Organization Address City/[facility]/ZIP Co de Phone Number [facility] * (ABNORMAL) Levetiracetam level (04/08/2018 1:55 PM EDT) Levetiracetam Lvl (NOVEMBER) 47.4(H) 12.0 - 46.0 mcg/mL [facility] Comment: ADDITIONAL INFORMATION This test was developed and its performance characteristics determined by [facility] in a manner consistent with CLIA requirements. This test has not been cleared or approved by the U.S. Food and Drug Administration. Test Performed by: [facility] - [address] [address] Blood specimen (specimen) 04/08/2018 1:55 PM EDT 04/08/2018 3:54 PM EDT Narrative Resulting Agency Comment Spec In Lab Lida Peter MD LAB SEND OUT ORDERAB LES Performing Organization Address City/[facility]/ZIP Co de Phone Number [facility] [place] [address] * Prepare RBC (04/08/2018 11:15 AM EDT) Dispensed? No [facility] Blood specimen (specimen) 04/08/2018 11:15 AM EDT 04/08/2018 11:11 AM EDT Lida Peter MD BLOOD BANK PRODUCT O RDERABLES Performing Organization Address [facility] Co de Phone Number [facility] [place] [address] * Prepare RBC (04/08/2018 11:15 AM EDT) Dispensed? Yes [facility] Blood specimen (specimen) 04/08/2018 11:15 AM EDT 04/08/2018 11:11 AM EDT Lida Peter MD BLOOD BANK PRODUCT O RDERABLES Performing Organization Address [facility] Co de Phone Number [facility] [place] [address] * (ABNORMAL) APTT (04/08/2018 10:45 AM EDT) Partial Thromboplastin Time 38(H) 25 - 37 sec [facility] Comment: The PTT is NOT appropriate for heparin monitoring. Use the Anti-Xa level for heparin monitoring (HEP UFH) or LMWH monitoring (HEP LMW). A PTT less than 37 seconds generally indicates adequate hemostasis. Blood specimen (specimen) 04/08/2018 10:45 AM EDT 04/08/2018 10:55 AM EDT Narrative Resulting Agency Comment Spec In Lab Lida Peter MD HEMATOLOGY ORDERABLE S Performing Organization Address [facility] Co de Phone Number [facility] [place] [address] * (ABNORMAL) Prothrombin Time (04/08/2018 10:45 AM EDT) Prothrombin Time 51.2(H) 9.4 - 12.5 sec [facility] International Normalization Ratio 4.5 [facility] Comment: An INR <2.0 indicates [...] Organization Address City/[facility]/ZIP Co de Phone Number [facility] [place] [address] * (ABNORMAL) CK (04/08/2018 10:45 AM EDT) Creatine Kinase 646(H) 0 - 200 unit/L [facility] Blood specimen (specimen) 04/08/2018 10:45 AM EDT 04/08/2018 10:55 AM EDT Narrative Resulting Agency Comment Spec In Lab Lida Peter MD CHEMISTRY ORDERABLES Performing Organization Address [facility] Co de Phone Number [facility] [place] [address] * (ABNORMAL) Hemoglobin and Hematocrit, blood (04/08/2018 10:45 AM EDT) Hemoglobin 7.2(L) 13.7 - 16.5 gm/dL [facility] Hematocrit 21.3(L) 40.5 - 48.5 % [facility] Blood specimen (specimen) 04/08/2018 10:45 AM EDT 04/08/2018 10:55 AM EDT Narrative Resulting Agency Comment Spec In Lab Lida Peter MD HEMATOLOGY ORDERABLE S Performing Organization Address City/[facility]/ZIP Co de Phone Number [facility] [place] [address] * Tacrolimus level (04/08/2018 8:30 AM EDT) Tacrolimus 2.1 ng/mL [facility] Comment: Trough therapeutic: ??5-15 ng/mL Performed by ultra-performance liquid chromatography tandem mass spectrometry (UPLCMS/MS). This test was developed and its performance characteristics determined by [facility]. It has not been [...] Peter MD CHEMISTRY ORDERABLES Performing Organization Address [facility]/ZIP Co de Phone Number [facility] [place] [address] * Prepare RBC (04/08/2018 4:55 AM EDT) Dispensed? Yes [facility] Blood specimen (specimen) 04/08/2018 4:55 AM EDT 04/08/2018 4:59 AM EDT Lida Peter MD BLOOD BANK PRODUCT O RDERABLES Performing Organization Address [facility]/ZIP Co de Phone Number [facility] [place] [address] * Blue Tube HOLD (04/08/2018 4:05 AM EDT) Blue Hold Sample in lab. [facility] Blood specimen (specimen) Venous Draw / Unknown 04/08/2018 4:05 AM EDT 04/08/2018 4:21 AM EDT Apple Gutierrez MD HEMATOLOGY ORDERABLE S Performing Organization Address City/[facility]/[place] [address] * (ABNORMAL) Differential, Automated (04/08/2018 4:05 AM EDT) Pathologist [facility] Neutrophil % 81.8 % [facility] Neutrophil Absolute 7.13(H) 1.70 - 6.10 x10(3)/mc L [facility] Lymph % 8.0 % [facility] Lymphocytes Abs 0.7(L) 0.9 - 3.2 x10(3)/ L [facility] Monocyte % 7.9 % [facility] Monocyte Abs 0.7 0.3 - 0.9 x10(3)/ L [facility] Eos % 1.8 % [facility] Eosinophils Abs 0.2 0.0 - 0.4 x10(3)/[facility] Basophil % 0.2 % [facility] Baso Absolute 0.0 0.0 - 0.1 x10(3)/ L [facility] Immature Gran % 0.30 % [facility] Comment: Immature granulocytes(IG's)percentage and absolute count will include metamyelocytes, myelocytes, and promyelocytes. Blood smears from CBCs yielding IG's will be scanned manually for concordance. If this scan disagrees with the automated IG or if promyelocytes are noted, a manual differential will be performed. Immature Gran Absolute 0.03 0.00 - 0.04 x10(3)/mc L [facility] Blood specimen (specimen) 04/08/2018 4:05 AM EDT 04/08/2018 4:21 AM EDT Narrative Resulting Agency Comment Spec In Lab Apple Gutierrez MD [place] [address] * (ABNORMAL) Hemogram (04/08/2018 4:05 AM EDT) White Blood Cell 8.7 4.0 - 9.5 x10(3)/ L [facility] Red Blood Cell 2.26(L) 4.58 - 5.54 x10(6)/mc L [facility] Hemoglobin 6.8(L) 13.7 - 16.5 gm/dL [facility] Hematocrit 20.4(L) 40.5 - 48.5 % [facility] Mean Cell Volume 90.3 82.9 - 93.1 fL [facility] Mean Cell Hemoglobin 30.1 27.5 - 32.1 pg [facility] Mean Cell Hemoglobin Concentration 33.3 32.0 - 35.7 gm/dL [facility] Platelet 94(L) 145 - 357 x10(3)/ L [facility] RDW Standard Deviation 57.9(H) 36.0 - 45.0 [facility] RDW coefficient of variation 17.7(H) 11.4 - 13.8 % [facility] Mean Platelet Volume 9.7 7.6 - 12.9 [facility] NRBC% auto 0.0 % [facility] NRBC Absolute 0.000 0.000 - 0.000 x10(3)/[facility] Blood specimen (specimen) 04/08/2018 4:05 AM EDT 04/08/2018 4:21 AM EDT Narrative Resulting Agency Comment Spec In Lab Apple Gutierrez MD HEMATOLOGY ORDERABLE S [facility] [place] [address] * (ABNORMAL) Basic Metabolic Panel (non-fasting) (04/08/2018 4:05 AM EDT) Pathologist [facility] Glucose 120 65 - 199 mg/dL [facility] Comment:Diabetes: >=200 mg/d L plus symptoms Blood Urea Nitrogen 47(H) 10 - 20 mg/dL [facility] Creatinine 2.93(H) 0.80 - 1.50 mg/dL [facility] Sodium 144 135 - 145 mmol/L [facility] Potassium 5.4(H) 3.5 - 5.0 mmol/L [facility] Comment: Please note: ??Patients with WBC >100,000 may have falsely elevated Potassium levels. ??For accurate Potassium quantification in these patients send serum separator tube (gold top) for subsequent determinations. ??Contact the Clinical Chemistry Laboratory if there are any questions. Chloride 115(H) 98 - 107 mmol/L [facility] Carbon Dioxide 16(L) 22 - 31 mmol/L [facility] Anion Gap 13 5 - 15 mmol/L [facility] Calcium 7.1(L) 8.5 - 10.5 mg/dL [facility] Comment:result rechecked-LA Est Glomerular Filtration Rate 23(L) >=60 mL/min/1. 73 m?? [facility] Comment: The eGFR was calculated using the CKD-EPI equation. As with all creatinine based estimates of kidney function, eGFR values calculated with the CKD-EPI equation are not accurate in patients with acute kidney failure, extremes of body mass or the acutely ill. [email or web address] eGFR 26(L) >=60 mL/min/1. 73 m?? [facility] Comment: The eGFR was calculated using the CKD-EPI equation. As with all creatinine based estimates of kidney function, eGFR values calculated with the CKD-EPI equation are not accurate in patients with acute kidney failure, extremes of body mass or the acutely ill. [email or web address] Blood specimen (specimen) 04/08/2018 4:05 AM EDT 04/08/2018 4:21 AM EDT Narrative Resulting Agency Comment Spec In Lab Hay Sparks MD CHEMISTRY ORDERABLES [facility] [place] [address] * MRI Brain wo Contrast (04/07/2018 9:11 [...] POCT Glucose (04/07/2018 5:56 AM EDT) Pathologist [facility] Glucose, POC 136 65 - 199 mg/dL [facility] Comment: Supplemental ranges: <140 mg/dL before meals <180 mg/dL all other times of the day Blood specimen (specimen) 04/07/2018 5:56 AM EDT 04/07/2018 5:56 AM EDT Lida Peter MD POINT OF CARE TEST O RDERABLES [facility] [place] [address] * (ABNORMAL) Cardiac Enzymes (LEB/CGP) (04/07/2018 5:55 AM EDT) [facility] Troponin-T 0.15(H) 0.00 - 0.00 ng/mL [facility] Comment: The 99th percentile for Troponin T is less than 0.01 ng/mL, any detectable cTnT concentration using this assay should be considered elevated. According to the third universal definition of myocardial infarction the following criteria with a clinical presentation consistent with acute myocardial ischemia meets the diagnosis for a myocardial infarction (VT). Detection of a rise and/or fall of cTnT, with at least one value greater than the 99th percentile (> or = 0.01) and with at least one of the following ?? Symptoms of ischemia ?? New or presumed new significant [id number] wave (ST-T) changes or new left bundle [...] additional sample may be indicated. Reference: Third [place] Definition of Myocardial Infarction. Journal of the [place] [employer] 2012;60:1581-98 Creatine Kinase 700(H) 0 - 200 unit/L [facility] Blood specimen (specimen) 04/07/2018 5:55 AM EDT 04/07/2018 6:34 AM EDT Narrative Resulting Agency Comment Spec In Lab Lida Peter MD CHEMISTRY ORDERABLES Performing Organization Address [facility] Co de Phone Number [facility] [place] [address] * (ABNORMAL) CK (04/07/2018 5:55 AM EDT) Creatine Kinase 699(H) 0 - 200 unit/L [facility] Blood specimen (specimen) 04/07/2018 5:55 AM EDT 04/07/2018 6:03 AM EDT Narrative Resulting Agency Comment Spec In Lab Lida Peter MD CHEMISTRY ORDERABLES Performing Organization Address [facility]/ZIP Co de Phone Number [facility] [place] [address] * (ABNORMAL) Hemoglobin and Hematocrit, blood (04/07/2018 5:55 AM EDT) Hemoglobin 7.2(L) 13.7 - 16.5 gm/dL [facility] Hematocrit 21.2(L) 40.5 - 48.5 % [facility] Blood specimen (specimen) 04/07/2018 5:55 AM EDT 04/07/2018 6:03 AM EDT Narrative Resulting Agency Comment Spec In Lab Lida Peter MD HEMATOLOGY ORDERABLE S Performing Organization Address City/[facility]/ZIP Co de Phone Number [facility] [place] [address] * Lactate, whole blood, send to lab (Leb/CGP) (04/07/2018 5:55 AM EDT) Lactate WB 1.2 0.5 - 2.2 mmol/L [facility] Blood specimen (specimen) 04/07/2018 5:55 AM EDT 04/07/2018 6:03 AM EDT Narrative Resulting Agency Comment Spec In Lab Lida Peter MD CHEMISTRY ORDERABLES Performing Organization Address City/[facility]/ZIP Co de Phone Number [facility] [place] [address] * (ABNORMAL) Basic Metabolic Panel (non-fasting) (04/07/2018 4:30 AM EDT) Glucose 124 65 - 199 mg/dL [facility] Comment:Diabetes: >=200 mg/d L plus symptoms Blood Urea Nitrogen 50(H) 10 - 20 mg/dL [facility] Creatinine 2.68(H) 0.80 - 1.50 mg/dL [facility] Sodium 143 135 - 145 mmol/L [facility] Potassium 5.4(H) 3.5 - 5.0 mmol/L [facility] Comment: Please note: ??Patients with WBC >100,000 may have falsely elevated Potassium levels. ??For accurate Potassium quantification in these patients send serum separator tube (gold top) for subsequent determinations. ??Contact the Clinical Chemistry Laboratory if there are any questions. Chloride 116(H) 98 - 107 mmol/L [facility] Carbon Dioxide 16(L) 22 - 31 mmol/L [facility] Anion Gap 11 5 - 15 mmol/L [facility] Calcium 7.0(L) 8.5 - 10.5 mg/dL [facility] Est Glomerular Filtration Rate 25(L) >=60 mL/min/1. 73 m?? [facility] Comment: The eGFR was calculated using the CKD-EPI equation. As with all creatinine based estimates of kidney function, eGFR values calculated with the CKD-EPI equation are not accurate in patients with acute kidney failure, extremes of body mass or the acutely ill. [email or web address] eGFR 29(L) >=60 mL/min/1. 73 m?? [facility] Comment: The eGFR was calculated using the CKD-EPI equation. As with all creatinine based estimates of kidney function, eGFR values calculated with the CKD-EPI equation are not accurate in patients with acute kidney failure, extremes of body mass or the acutely ill. [email or web address] Blood specimen (specimen) 04/07/2018 4:30 AM EDT 04/07/2018 4:34 AM EDT Narrative Resulting Agency Comment Spec In Lab Lida Peter MD CHEMISTRY ORDERABLES Performing Organization Address [facility]/ZIP Co de Phone Number [facility] [place] [address] * POCT Glucose (04/07/2018 3:35 AM EDT) Glucose, POC 131 65 - 199 mg/dL [facility] Comment: Supplemental ranges: <140 mg/dL before meals <180 mg/dL all other times of the day Blood specimen (specimen) 04/07/2018 3:35 AM EDT 04/07/2018 3:35 AM EDT Lida Peter MD POINT OF CARE TEST O RDERABLES [facility] [place] [address] * Lactate, whole blood, send to lab (Leb/CGP) (04/07/2018 12:15 AM EDT) Lactate WB 1.5 0.5 - 2.2 mmol/L [facility] Blood specimen (specimen) 04/07/2018 12:15 AM EDT 04/07/2018 12:21 AM EDT Narrative Resulting Agency Comment Spec In Lab Lida Peter MD CHEMISTRY ORDERABLES Performing Organization Address [facility] de Phone Number [facility] [place] [address] * (ABNORMAL) CK (04/07/2018 12:15 AM EDT) Pathologist [facility] Creatine Kinase 608(H) 0 - 200 unit/L [facility] Comment:result rechecked-RR Blood specimen (specimen) 04/07/2018 12:15 AM EDT 04/07/2018 12:21 AM EDT Narrative Resulting Agency Comment Spec In Lab Lida Peter MD CHEMISTRY ORDERABLES Performing Organization Address [facility] Co de Phone Number [facility] [place] [address] * (ABNORMAL) Hemoglobin and Hematocrit, blood (04/07/2018 12:15 AM EDT) Pathologist [facility] Hemoglobin 7.9(L) 13.7 - 16.5 gm/dL [facility] [facility] Hematocrit 23.1(L) 40.5 - 48.5 % [facility] Blood specimen (specimen) 04/07/2018 12:15 AM EDT 04/07/2018 12:21 AM EDT Narrative Resulting Agency Comment Spec In Lab Lida Peter MD HEMATOLOGY ORDERABLE S Performing Organization Address City/[facility]/ZIP Co de Phone Number [facility] [place] [address] * (ABNORMAL) Basic Metabolic Panel (non-fasting) (04/07/2018 12:15 AM EDT) Glucose 167 65 - 199 mg/dL [facility] Comment:Diabetes: >=200 mg/d L plus symptoms Blood Urea Nitrogen 48(H) 10 - 20 mg/dL [facility] Creatinine 2.58(H) 0.80 - 1.50 mg/dL [facility] Sodium 143 135 - 145 mmol/L [facility] Potassium 6.1(Criti constance) 3.5 - 5.0 mmol/L [facility] Comment: Called by: RUPINDER, Read back by: EVELIN CALLEJAS, Date/Time:04/07/18 01:06. Please note: ??Patients with WBC >100,000 may have falsely elevated Potassium levels. ??For accurate Potassium quantification in these patients send serum separator tube (gold top) for subsequent determinations. ??Contact the Clinical Chemistry Laboratory if there are any questions. Chloride 117(H) 98 - 107 mmol/L [facility] Carbon Dioxide 15(L) 22 - 31 mmol/L [facility] Anion Gap 11 5 - 15 mmol/L [facility] Calcium 6.8(Criti constance) 8.5 - 10.5 mg/dL [facility] Comment:Called by: RUPINDER, Read back by: EVELIN CALLEJAS, Date/Time:04/07/18 01:06. Est Glomerular Filtration Rate 27(L) >=60 mL/min/1. 73 m?? [facility] Comment: The eGFR was calculated using the CKD-EPI equation. As with all creatinine based estimates of kidney function, eGFR values calculated with the CKD-EPI equation are not accurate in patients with acute kidney failure, extremes of body mass or the acutely ill. [email or web address] eGFR 31(L) >=60 mL/min/1. 73 m?? [facility] Comment: The eGFR was calculated using the CKD-EPI equation. As with all creatinine based estimates of kidney function, eGFR values calculated with the CKD-EPI equation are not accurate in patients with acute kidney failure, extremes of body mass or the acutely ill. [email or web address] Blood specimen (specimen) 04/07/2018 12:15 AM EDT 04/07/2018 12:21 AM EDT Narrative Resulting Agency Comment Spec In Lab Lida Peter MD CHEMISTRY ORDERABLES Performing Organization Address [facility] Co de Phone Number [facility] [place] [address] * POCT Glucose (04/06/2018 8:30 PM EDT) [facility] Signature Glucose, POC 177 65 - 199 mg/dL [facility] Comment: Supplemental ranges: <140 mg/dL before meals <180 mg/dL all other times of the day Blood specimen (specimen) 04/06/2018 8:30 PM EDT 04/06/2018 8:30 PM EDT Lida Peter MD POINT OF CARE TEST O RDERABLES Performing Organization Address [facility] Co de Phone Number [facility] [place] [address] * Request For 2nd Read CT Chest [...] abdomen, and pelvis performed at [facility] on 04/06/2018. 5 mm and 1 [...] Spleen: Normal. Kidneys/Adrenals: The RIGHT and LEFT [place] kidneys are severely atrophic. The patient status [...] Spleen: Normal. Kidneys/Adrenals: The RIGHT and LEFT [place] kidneys are severely atrophic.The patient status post [...] 5:40 PM EDT) Neutrophil % 85.6 % [facility] Neutrophil Absolute 7.32(H) 1.70 - 6.10 x10(3)/mc L [facility] Lymph % 4.8 % [facility] Lymphocytes Abs 0.4(L) 0.9 - 3.2 x10(3)/mc L [facility] Monocyte % 9.1 % [facility] Monocyte Abs 0.8 0.3 - 0.9 x10(3)/mc L [facility] Eos % 0.0 % [facility] Eosinophils Abs 0.0 0.0 - 0.4 x10(3)/mc L [facility] Basophil % 0.0 % [facility] Baso Absolute 0.0 0.0 - 0.1 x10(3)/mc L [facility] Immature Gran % 0.50 % [facility] Comment: Immature granulocytes(IG's)percentage and absolute count will include metamyelocytes, myelocytes, and promyelocytes. Blood smears from CBCs yielding IG's will be scanned manually for concordance. If this scan disagrees with the automated IG or if promyelocytes are noted, a manual differential will be performed. Immature Gran Absolute 0.04 0.00 - 0.04 x10(3)/[facility] Blood specimen (specimen) 04/06/2018 5:40 PM EDT 04/06/2018 6:01 PM EDT Narrative Resulting Agency Comment Spec In Lab Natalya Minaya MD HEMATOLOGY ORDERABLE S [facility] [place] [address] * (ABNORMAL) Hemogram (04/06/2018 5:40 PM EDT) White Blood Cell 8.6 4.0 - 9.5 x10(3)/[facility] Red Blood Cell 2.56(L) 4.58 - 5.54 x10(6)/[facility] Hemoglobin 7.8(L) 13.7 - 16.5 gm/dL [facility] Hematocrit 23.1(L) 40.5 - 48.5 % [facility] Mean Cell Volume 90.2 82.9 - 93.1 fL [facility] Mean Cell Hemoglobin 30.5 27.5 - 32.1 pg [facility] Mean Cell Hemoglobin Concentration 33.8 32.0 - 35.7 gm/dL [facility] Platelet 95(L) 145 - 357 x10(3)/[facility] RDW Standard Deviation 53.6(H) 36.0 - 45.0 fL [facility] RDW coefficient of variation 16.6(H) 11.4 - 13.8 % [facility] Mean Platelet Volume 9.5 7.6 - 12.9 fL [facility] NRBC% auto 0.0 % [facility] NRBC Absolute 0.000 0.000 - 0.000 x10(3)/mc L [facility] Blood specimen (specimen) 04/06/2018 5:40 PM EDT 04/06/2018 6:01 PM EDT Narrative Resulting Agency Comment Spec In Lab Natalya Minaya MD HEMATOLOGY ORDERABLE S Performing Organization Address City/[facility]/ZIP Co de Phone Number [facility] [place] [address] * Phosphorus (04/06/2018 5:40 PM EDT) [facility] Phosphorus 3.3 2.5 - 4.5 mg/dL [facility] Blood specimen (specimen) 04/06/2018 5:40 PM EDT 04/06/2018 6:01 PM EDT Narrative Resulting Agency Comment Spec In Lab Lida Peter MD CHEMISTRY ORDERABLES Performing Organization Address [facility] Co de Phone Number [facility] [place] [address] * (ABNORMAL) Magnesium (04/06/2018 5:40 PM EDT) [facility] Magnesium 0.60(L) 0.69 - 1.07 mmol/L [facility] Blood specimen (specimen) 04/06/2018 5:40 PM EDT 04/06/2018 6:01 PM EDT Narrative Resulting Agency Comment Spec In Lab Lida Peter MD CHEMISTRY ORDERABLES Performing Organization Address [facility]/ZIP Co de Phone Number [facility] [place] [address] * (ABNORMAL) Cardiac Enzymes (LEB/CGP) (04/06/2018 5:40 PM EDT) [facility] Troponin-T 0.20(H) 0.00 - 0.00 ng/mL [facility] Comment: The 99th percentile for Troponin T is less than 0.01 ng/mL, any detectable cTnT concentration using this assay should be considered elevated. According to the third universal definition of myocardial infarction the following criteria with a clinical presentation consistent with acute myocardial ischemia meets the diagnosis for a myocardial infarction (VT). Detection of a rise and/or fall of cTnT, with at least one value greater than the 99th percentile (> or = 0.01) and with at least one of the following ?? Symptoms of ischemia ?? New or presumed new significant NM-ejajnde-P wave (ST-T) changes or new left bundle [...] additional sample may be indicated. Reference: Third [place] Definition of Myocardial Infarction. Journal of the [place] [employer] 2012;60:1581-98 Creatine Kinase 249(H) 0 - 200 unit/L [facility] Blood specimen (specimen) 04/06/2018 5:40 PM EDT 04/06/2018 6:01 PM EDT Narrative Resulting Agency Comment Spec In Lab Lida Peter MD CHEMISTRY ORDERABLES [facility] [place] [address] * (ABNORMAL) CMP w/fasting Glucose (04/06/2018 5:40 PM EDT) [facility] Glucose Fasting 140(H) 65 - 99 mg/dL [facility] Comment: ?Fasting* Glucose Interpretive Criteria [...] of Diabetes Mellitus, Position Statement from the [place] [employer]. ??Diabetes Care, Volume 33, Supplement 1, Jul 2009 Blood Urea Nitrogen 45(H) 10 - 20 mg/dL [facility] Creatinine 2.48(H) 0.80 - 1.50 mg/dL [facility] Sodium 145 135 - 145 mmol/L [facility] Potassium 5.2(H) 3.5 - 5.0 mmol/L [facility] Comment: Please note: ??Patients with WBC >100,000 may have falsely elevated Potassium levels. ??For accurate Potassium quantification in these patients send serum separator tube (gold top) for subsequent determinations. ??Contact the Clinical Chemistry Laboratory if there are any questions. Chloride 118(H) 98 - 107 mmol/L [facility] Carbon Dioxide 16(L) 22 - 31 mmol/L [facility] Anion Gap 11 5 - 15 mmol/L [facility] Calcium 6.7(Criti constance) 8.5 - 10.5 mg/dL [facility] Comment:Calcium not critical when adjusted for albumin concentration. Protein, Total 4.3(L) 6.1 - 8.0 gm/dL [facility] Albumin 2.3(L) 3.2 - 5.2 gm/dL [facility] Aspartate Aminotransferase 22 0 - 39 unit/L [facility] Alanine Aminotransferase 20 0 - 55 unit/L [facility] Alkaline Phosphatase 57 40 - 120 unit/L [facility] Bilirubin, Total 0.3 0.2 - 1.3 mg/dL [facility] Est Glomerular Filtration Rate 28(L) >=60 mL/min/1. 73 m?? [facility] Comment: The eGFR was calculated using the CKD-EPI equation. As with all creatinine based estimates of kidney function, eGFR values calculated with the CKD-EPI equation are not accurate in patients with acute kidney failure, extremes of body mass or the acutely ill. [email or web address] eGFR 32(L) >=60 mL/min/1. 73 m?? [facility] Comment: The eGFR was calculated using the CKD-EPI equation. As with all creatinine based estimates of kidney function, eGFR values calculated with the CKD-EPI equation are not accurate in patients with acute kidney failure, extremes of body mass or the acutely ill. [email or web address] Blood specimen (specimen) 04/06/2018 5:40 PM EDT 04/06/2018 6:01 PM EDT Narrative Resulting Agency Comment Spec In Lab Lida Peter MD CHEMISTRY ORDERABLES Performing Organization Address [facility] Co de Phone Number [facility] [place] [address] * APTT (04/06/2018 5:40 PM EDT) Partial Thromboplastin Time 30 25 - 37 sec [facility] Comment: The PTT is NOT [...] Organization Address City/[facility] Co de Phone Number [facility] [place] [address] * (ABNORMAL) Prothrombin Time (04/06/2018 5:40 PM EDT) Prothrombin Time 24.1(H) 9.4 - 12.5 sec [facility] International Normalization Ratio 2.2 [facility] Comment: An INR <2.0 indicates [...] Lab Lida Peter MD HEMATOLOGY ORDERABLE S [facility] [place] [address] * (ABNORMAL) BLOOD GAS 2 ARTERIAL (04/06/2018 5:24 PM EDT) pH, Arterial 7.29(Crit ical) 7.35 - 7.45 [facility] Comment:Noted by instrumentation instructor. PCO2, Arterial 31(L) 35 - 45 mmHg [facility] PO2, Arterial 65(L) 85 - 104 mmHg [facility] Bicarbonate, Arterial 15.2(L) 20.0 - 26.0 mmol/L [facility] Base Excess, Arterial -11.8(L) -3.0 - 3.0 mmol/L [facility] Hgb Blood Gas 8.4(L) 13.7 - 16.5 gm/dL [facility] Oxyhemoglobin, Arterial 93.0(L) 94.0 - 97.0 % [facility] Carboxyhemoglo bin, Arterial 0.3 % [facility] Comment: Nonsmokers: 0.5-1.5% COHB Smokers: Variable, but usually less than 10% Toxic: 20-30% COHB Lethal: Greater than 60% COHB Methemoglobin, Arterial 0.9 <=1.5 % [facility] Na Whole Blood 140 135 - 145 mmol/L [facility] K Whole Blood 5.0 3.5 - 5.0 mmol/L [facility] Comment: Please note: Patients with WBC >100,000 may have falsely elevated Potassium levels. Contact the Clinical Chemistry Laboratory if there are any questions. ICa Whole Blood 1.03(L) 1.15 - 1.33 mmol/L [facility] Comment: Note: ??Total bilirubin higher than 20 mg/dL may lead to falsely low ionized calcium. CL Whole Blood 119(H) 98 - 107 mmol/L [facility] Gluc Whole Bld 141 65 - 199 mg/dL [facility] Comment:Diabetes: >=200 mg/d L plus symptoms. Lactate WB 2.4(H) 0.5 - 2.2 mmol/L [facility] FIO2 Art 50 % [facility] PF Ratio Art 130 [facility] Temp Art 34.8 Celsius [facility] Blood specimen (specimen) 04/06/2018 5:24 PM EDT 04/06/2018 5:24 PM EDT Lida Peter MD POINT OF CARE TEST O UMESH Performing Organization Address [facility] Co de Phone Number [facility] [place] [address] * POCT Glucose (04/06/2018 5:10 PM EDT) Glucose, POC 147 65 - 199 mg/dL [facility] Comment: Supplemental ranges: <140 mg/dL before meals <180 mg/dL all other times of the day Blood specimen (specimen) 04/06/2018 5:10 PM EDT 04/06/2018 5:10 PM EDT Lida Peter MD POINT OF CARE TEST O UMESH Performing Organization Address City/[facility]/ZIP Co de Phone Number [facility] [place] [address] * (ABNORMAL) BLOOD GAS 2 ARTERIAL (04/06/2018 4:04 PM EDT) pH, Arterial 7.27(Criti constance) 7.35 - 7.45 [facility] Comment:Noted by instrumentation instructor. PCO2, Arterial 34(L) 35 - 45 mmHg [facility] PO2, Arterial 152(H) 85 - 104 mmHg [facility] Bicarbonate, Arterial 15.2(L) 20.0 - 26.0 mmol/L [facility] Base Excess, Arterial -11.8(L) -3.0 - 3.0 mmol/L [facility] Hgb Blood Gas 8.1(L) 13.7 - 16.5 gm/dL [facility] Oxyhemoglobin, Arterial 97.7(H) 94.0 - 97.0 % [facility] Carboxyhemoglob in, Arterial 0.5 % [facility] Comment: Nonsmokers: 0.5-1.5% COHB Smokers: Variable, but usually less than 10% Toxic: 20-30% COHB Lethal: Greater than 60% COHB Methemoglobin, Arterial 0.3 <=1.5 % [facility] Na Whole Blood 140 135 - 145 mmol/L [facility] K Whole Blood 4.6 3.5 - 5.0 mmol/L [facility] Comment: Please note: Patients with WBC >100,000 may have falsely elevated Potassium levels. Contact the Clinical Chemistry Laboratory if there are any questions. ICa Whole Blood 1.01(L) 1.15 - 1.33 mmol/L [facility] Comment: Note: ??Total bilirubin higher than 20 mg/dL may lead to falsely low ionized calcium. CL Whole Blood 118(H) 98 - 107 mmol/L [facility] Gluc Whole Bld 137 65 - 199 mg/dL [facility] Comment:Diabetes: >=200 mg/d L plus symptoms. Lactate WB 3.1(H) 0.5 - 2.2 mmol/L [facility] Blood specimen (specimen) 04/06/2018 4:04 PM EDT 04/06/2018 4:04 PM EDT Lida Peter MD POINT OF CARE TEST O RDERABLES Performing Organization Address [facility]/ZIP Co de Phone Number [facility] [place] [address] * Scan, Peripheral Blood (04/06/2018 3:53 PM EDT) [facility] Plat estimate Decreased [facility] RBC Morphology Abnormal [facility] Ovalocytes 1-5 /HPF [facility] Yovanny Cells 1-5 /HPF [facility] Blood specimen (specimen) 04/06/2018 3:53 PM EDT 04/06/2018 4:05 PM EDT Narrative Resulting Agency Comment Spec In Lab Lida Peter MD HEMATOLOGY ORDERABLE S Performing Organization Address City/[facility]/ZIP Co de Phone Number [facility] [place] [address] * (ABNORMAL) Differential, Automated (04/06/2018 3:53 PM EDT) [facility] Neutrophil % 80.4 % [facility] Neutrophil Absolute 8.28(H) 1.70 - 6.10 x10(3)/mc L [facility] Lymph % 6.8 % [facility] Lymphocytes Abs 0.7(L) 0.9 - 3.2 x10(3)/mc L [facility] Monocyte % 11.9 % [facility] Monocyte Abs 1.2(H) 0.3 - 0.9 x10(3)/mc L [facility] Eos % 0.0 % [facility] Eosinophils Abs 0.0 0.0 - 0.4 x10(3)/mc L [facility] Basophil % 0.1 % [facility] Baso Absolute 0.0 0.0 - 0.1 x10(3)/ L [facility] Immature Gran % 0.80 % [facility] Comment: Immature granulocytes(IG's)percentage and absolute count will include metamyelocytes, myelocytes, and promyelocytes. Blood smears from CBCs yielding IG's will be scanned manually for concordance. If this scan disagrees with the automated IG or if promyelocytes are noted, a manual differential will be performed. Immature Gran Absolute 0.08(H) 0.00 - 0.04 x10(3)/ L [facility] Blood specimen (specimen) 04/06/2018 3:53 PM EDT 04/06/2018 4:05 PM EDT Narrative Resulting Agency Comment Spec In Lab Lida Peter MD HEMATOLOGY ORDERABLE S [facility] [place] [address] * (ABNORMAL) Hemogram (04/06/2018 3:53 PM EDT) White Blood Cell 10.3(H) 4.0 - 9.5 x10(3)/[facility] Red Blood Cell 2.53(L) 4.58 - 5.54 x10(6)/ L [facility] Hemoglobin 7.7(L) 13.7 - 16.5 gm/dL [facility] Comment: This result has been called to MISAEL GRANT by Evon Woodard on 04 06 2018 at 1633, and has been read back. Hematocrit 23.2(L) 40.5 - 48.5 % [facility] Comment: This result has been called to MISAEL GRANT by Evon Woodard on 04 06 2018 at 1633, and has been read back. Mean Cell Volume 91.7 82.9 - 93.1 fL [facility] Mean Cell Hemoglobin 30.4 27.5 - 32.1 pg [facility] Mean Cell Hemoglobin Concentration 33.2 32.0 - 35.7 gm/dL [facility] Platelet 96(L) 145 - 357 x10(3)/mc L [facility] RDW Standard Deviation 53.3(H) 36.0 - 45.0 fL [facility] RDW coefficient of variation 16.2(H) 11.4 - 13.8 % [facility] Mean Platelet Volume 9.0 7.6 - 12.9 fL [facility] NRBC% auto 0.0 % [facility] NRBC Absolute 0.000 0.000 - 0.000 x10(3)/mc L [facility] Blood specimen (specimen) 04/06/2018 3:53 PM EDT 04/06/2018 4:05 PM EDT Narrative Resulting Agency Comment Spec In Lab Lida Peter MD HEMATOLOGY ORDERABLE S Performing Organization Address [facility] Co de Phone Number [facility] [place] [address] * APTT (04/06/2018 3:53 PM EDT) Partial Thromboplastin Time 30 25 - 37 sec [facility] Comment: The PTT is NOT [...] Organization Address City/[facility] Co de Phone Number [facility] [place] [address] * (ABNORMAL) Prothrombin Time (04/06/2018 3:53 PM EDT) Prothrombin Time 22.5(H) 9.4 - 12.5 sec [facility] Comment:Called by: luisa, Read back by: donn thomas, Date/Time:04/06/18 16:20. International Normalization Ratio 2.0 [facility] Comment: An INR <2.0 indicates [...] Lab Lida Peter MD HEMATOLOGY ORDERABLE S [facility] [place] [address] * (ABNORMAL) BLOOD GAS 2 ARTERIAL (04/06/2018 3:41 PM EDT) pH, Arterial 7.22(Criti constance) 7.35 - 7.45 [facility] Comment:Noted by instrumentation instructor. PCO2, Arterial 39 35 - 45 mmHg [facility] PO2, Arterial 168(H) 85 - 104 mmHg [facility] Bicarbonate, Arterial 15.3(L) 20.0 - 26.0 mmol/L [facility] Base Excess, Arterial -12.4(L) -3.0 - 3.0 mmol/L [facility] Hgb Blood Gas 8.4(L) 13.7 - 16.5 gm/dL [facility] Oxyhemoglobin, Arterial 98.1(H) 94.0 - 97.0 % [facility] Carboxyhemoglob in, Arterial 0.2 % [facility] Comment: Nonsmokers: 0.5-1.5% COHB Smokers: Variable, but usually less than 10% Toxic: 20-30% COHB Lethal: Greater than 60% COHB Methemoglobin, Arterial 0.3 <=1.5 % [facility] Na Whole Blood 143 135 - 145 mmol/L [facility] K Whole Blood 4.6 3.5 - 5.0 mmol/L [facility] Comment: Please note: Patients with WBC >100,000 may have falsely elevated Potassium levels. Contact the Clinical Chemistry Laboratory if there are any questions. ICa Whole Blood 0.92(Criti constance) 1.15 - 1.33 mmol/L [facility] Comment: Noted by instrumentation instructor. Note: ??Total bilirubin higher than 20 mg/dL may lead to falsely low ionized calcium. CL Whole Blood 119(H) 98 - 107 mmol/L [facility] Gluc Whole Bld 158 65 - 199 mg/dL [facility] Comment:Diabetes: >=200 mg/d L plus symptoms. Lactate WB 3.2(H) 0.5 - 2.2 mmol/L [facility] Blood specimen (specimen) 04/06/2018 3:41 PM EDT 04/06/2018 3:41 PM EDT Lida Peter MD POINT OF CARE TEST O RDERABLES [facility] [place] [address] * (ABNORMAL) BLOOD GAS 2 ARTERIAL (04/06/2018 3:13 PM EDT) pH, Arterial 7.18(Criti constance) 7.35 - 7.45 [facility] Comment:Noted by instrumentation instructor. PCO2, Arterial 40 35 - 45 mmHg [facility] PO2, Arterial 228(H) 85 - 104 mmHg [facility] Bicarbonate, Arterial 14.8(L) 20.0 - 26.0 mmol/L [facility] Base Excess, Arterial -13.5(L) -3.0 - 3.0 mmol/L [facility] Hgb Blood Gas 9.4(L) 13.7 - 16.5 gm/dL [facility] Oxyhemoglobin, Arterial 98.3(H) 94.0 - 97.0 % [facility] Carboxyhemoglob in, Arterial 0.3 % [facility] Comment: Nonsmokers: 0.5-1.5% COHB Smokers: Variable, but usually less than 10% Toxic: 20-30% COHB Lethal: Greater than 60% COHB Methemoglobin, Arterial 0.3 <=1.5 % [facility] Na Whole Blood 141 135 - 145 mmol/L [facility] K Whole Blood 4.8 3.5 - 5.0 mmol/L [facility] Comment: Please note: Patients with WBC >100,000 may have falsely elevated Potassium levels. Contact the Clinical Chemistry Laboratory if there are any questions. ICa Whole Blood 1.12(L) 1.15 - 1.33 mmol/L [facility] Comment: Note: ??Total bilirubin higher than 20 mg/dL may lead to falsely low ionized calcium. CL Whole Blood 120(H) 98 - 107 mmol/L [facility] Gluc Whole Bld 125 65 - 199 mg/dL [facility] Comment:Diabetes: >=200 mg/d L plus symptoms. Lactate WB 2.8(H) 0.5 - 2.2 mmol/L [facility] Blood specimen (specimen) 04/06/2018 3:13 PM EDT 04/06/2018 3:13 PM EDT Lida Peter MD POINT OF CARE TEST O RDERABLES [facility] [place] [address] * (ABNORMAL) BLOOD GAS 2 ARTERIAL (04/06/2018 2:48 PM EDT) pH, Arterial 7.27(Criti constance) 7.35 - 7.45 [facility] Comment:Noted by instrumentation instructor. PCO2, Arterial 36 35 - 45 mmHg [facility] PO2, Arterial 379(H) 85 - 104 mmHg [facility] Bicarbonate, Arterial 16.1(L) 20.0 - 26.0 mmol/L [facility] Base Excess, Arterial -10.8(L) -3.0 - 3.0 mmol/L [facility] Hgb Blood Gas 9.7(L) 13.7 - 16.5 gm/dL [facility] Oxyhemoglobin, Arterial 98.5(H) 94.0 - 97.0 % [facility] Carboxyhemoglob in, Arterial 0.3 % [facility] Comment: Nonsmokers: 0.5-1.5% COHB Smokers: Variable, but usually less than 10% Toxic: 20-30% COHB Lethal: Greater than 60% COHB Methemoglobin, Arterial 0.3 <=1.5 % [facility] Na Whole Blood 142 135 - 145 mmol/L [facility] K Whole Blood 5.4(H) 3.5 - 5.0 mmol/L [facility] Comment: Please note: Patients with WBC >100,000 may have falsely elevated Potassium levels. Contact the Clinical Chemistry Laboratory if there are any questions. ICa Whole Blood 1.10(L) 1.15 - 1.33 mmol/L [facility] Comment: Note: ??Total bilirubin higher than 20 mg/dL may lead to falsely low ionized calcium. CL Whole Blood 117(H) 98 - 107 mmol/L [facility] Gluc Whole Bld 185 65 - 199 mg/dL [facility] Comment:Diabetes: >=200 mg/d L plus symptoms. Lactate WB 1.9 0.5 - 2.2 mmol/L [facility] Blood specimen (specimen) 04/06/2018 2:48 PM EDT 04/06/2018 2:48 PM EDT Lida Peter MD POINT OF CARE TEST O RDERABLES [facility] [place] [address] * (ABNORMAL) BLOOD GAS 2 ARTERIAL (04/06/2018 2:46 PM EDT) pH, Arterial 7.27(Criti constance) 7.35 - 7.45 [facility] Comment:Noted by instrumentation instructor. PCO2, Arterial 36 35 - 45 mmHg [facility] PO2, Arterial Not Perf 85 - 104 mmHg [facility] Bicarbonate, Arterial 16.2(L) 20.0 - 26.0 mmol/L [facility] Base Excess, Arterial -10.7(L) -3.0 - 3.0 mmol/L [facility] Hgb Blood Gas 9.3(L) 13.7 - 16.5 gm/dL [facility] Oxyhemoglobin, Arterial 98.9(H) 94.0 - 97.0 % [facility] Carboxyhemoglob in, Arterial 0.3 % [facility] Comment: Nonsmokers: 0.5-1.5% COHB Smokers: Variable, but usually less than 10% Toxic: 20-30% COHB Lethal: Greater than 60% COHB Methemoglobin, Arterial 0.3 <=1.5 % [facility] Na Whole Blood 143 135 - 145 mmol/L [facility] K Whole Blood 5.5(H) 3.5 - 5.0 mmol/L [facility] Comment: Please note: Patients with WBC >100,000 may have falsely elevated Potassium levels. Contact the Clinical Chemistry Laboratory if there are any questions. ICa Whole Blood 1.09(L) 1.15 - 1.33 mmol/L [facility] Comment: Note: ??Total bilirubin higher than 20 mg/dL may lead to falsely low ionized calcium. CL Whole Blood 118(H) 98 - 107 mmol/L [facility] Gluc Whole Bld 191 65 - 199 mg/dL [facility] Comment:Diabetes: >=200 mg/d L plus symptoms. Lactate WB 1.8 0.5 - 2.2 mmol/L [facility] Blood specimen (specimen) 04/06/2018 2:46 PM EDT 04/06/2018 2:46 PM EDT Lida Peter MD POINT OF CARE TEST O RDERABLES [facility] [place] [address] * (ABNORMAL) BLOOD GAS 2 ARTERIAL (04/06/2018 2:16 PM EDT) pH, Arterial 7.29(Criti constance) 7.35 - 7.45 [facility] Comment:Noted by instrumentation instructor. PCO2, Arterial 38 35 - 45 mmHg [facility] PO2, Arterial 423(H) 85 - 104 mmHg [facility] Bicarbonate, Arterial 17.9(L) 20.0 - 26.0 mmol/L [facility] Base Excess, Arterial -8.6(L) -3.0 - 3.0 mmol/L [facility] Hgb Blood Gas 9.7(L) 13.7 - 16.5 gm/dL [facility] Oxyhemoglobin, Arterial 98.7(H) 94.0 - 97.0 % [facility] Carboxyhemoglob in, Arterial 0.3 % [facility] Comment: Nonsmokers: 0.5-1.5% COHB Smokers: Variable, but usually less than 10% Toxic: 20-30% COHB Lethal: Greater than 60% COHB Methemoglobin, Arterial 0.3 <=1.5 % [facility] Na Whole Blood 137 135 - 145 mmol/L [facility] K Whole Blood 6.5(Critic al) 3.5 - 5.0 mmol/L [facility] Comment: Noted by instrumentation instructor. Please note: Patients with WBC >100,000 may have falsely elevated Potassium levels. Contact the Clinical Chemistry Laboratory if there are any questions. ICa Whole Blood 1.06(L) 1.15 - 1.33 mmol/L [facility] Comment: Note: ??Total bilirubin higher than 20 mg/dL may lead to falsely low ionized calcium. CL Whole Blood 117(H) 98 - 107 mmol/L [facility] Gluc Whole Bld 261(H) 65 - 199 mg/dL [facility] Comment:Diabetes: >=200 mg/d L plus symptoms. Lactate WB 1.1 0.5 - 2.2 mmol/L [facility] Blood specimen (specimen) 04/06/2018 2:16 PM EDT 04/06/2018 2:16 PM EDT Lida Peter MD POINT OF CARE TEST O RDERABLES Performing Organization Address [facility]/ZIP Co de Phone Number [facility] [place] [address] * Anaerobic Culture (04/06/2018 2:15 PM EDT) Anaerobic Culture No anaerobic organisms isolated [facility] Fluid specimen (specimen) 04/06/2018 2:15 PM EDT 04/06/2018 2:34 PM EDT Comment:CULTURE LEFT ARM WOU ND Narrative Resulting Agency Comment Spec In Lab Lida Peter MD MICROBIOLOGY - GENER AL ORDERABLES Performing Organization Address [facility] Co de Phone Number [facility] [place] [address] * Body Fluid Culture, Aerobic (04/06/2018 2:15 PM EDT) Body Fluid Culture Few normal cutaneous shaina [facility] Gram Stain Few Neutrophils seen No microorganisms seen. [facility] Fluid specimen (specimen) 04/06/2018 2:15 PM EDT 04/06/2018 2:34 PM EDT Comment:CULTURE LEFT ARM WOU ND Narrative Resulting Agency Comment Spec In Lab Lida Peter MD MICROBIOLOGY - GENER AL ORDERABLES Performing Organization Address [facility] Co de Phone Number [facility] [place] [address] * (ABNORMAL) BLOOD GAS 2 ARTERIAL (04/06/2018 1:53 PM EDT) pH, Arterial 7.24(Criti constance) 7.35 - 7.45 [facility] Comment:Noted by instrumentation instructor. PCO2, Arterial 38 35 - 45 mmHg [facility] PO2, Arterial 388(H) 85 - 104 mmHg [facility] Bicarbonate, Arterial 15.7(L) 20.0 - 26.0 mmol/L [facility] Base Excess, Arterial -11.8(L) -3.0 - 3.0 mmol/L [facility] Hgb Blood Gas 10.8(L) 13.7 - 16.5 gm/dL [facility] Oxyhemoglobin, Arterial 98.8(H) 94.0 - 97.0 % [facility] Carboxyhemoglob in, Arterial 0.3 % [facility] Comment: Nonsmokers: 0.5-1.5% COHB Smokers: Variable, but usually less than 10% Toxic: 20-30% COHB Lethal: Greater than 60% COHB Methemoglobin, Arterial 0.3 <=1.5 % [facility] Na Whole Blood 141 135 - 145 mmol/L [facility] K Whole Blood 6.7(Critic al) 3.5 - 5.0 mmol/L [facility] Comment: Noted by instrumentation instructor. Please note: Patients with WBC >100,000 may have falsely elevated Potassium levels. Contact the Clinical Chemistry Laboratory if there are any questions. ICa Whole Blood 1.00(L) 1.15 - 1.33 mmol/L [facility] Comment: Note: ??Total bilirubin higher than 20 mg/dL may lead to falsely low ionized calcium. CL Whole Blood 117(H) 98 - 107 mmol/L [facility] Gluc Whole Bld 219(H) 65 - 199 mg/dL [facility] Comment:Diabetes: >=200 mg/d L plus symptoms. Lactate WB 1.2 0.5 - 2.2 mmol/L [facility] Blood specimen (specimen) 04/06/2018 1:53 PM EDT 04/06/2018 1:53 PM EDT Lida Peter MD POINT OF CARE TEST O RDERABLES [facility] [place] [address] * Request For 2nd Read CT Head [...] RBC, Urine 21(H) 0 - 3 /HPF [facility] WBC, Urine 8(H) 0 - 3 /HPF [facility] Bacteria, Urine Occasional (A) None /HPF [facility] Squamous Epithelial Cells Raw Data, Urine 1 <=4 /HPF [facility] Granular Casts, Urine 1(H) <=0 /LPF [facility] Urine specimen obtained by clean catch procedure (specimen) 04/06/2018 1:25 PM EDT 04/06/2018 1:30 PM EDT Narrative Resulting Agency Comment Spec In Lab Fabian Burkett MD URINE ORDERABLES [facility] [place] [address] * Rapid Drug Screen w/o Confirmation, Urine (04/06/2018 1:25 PM EDT) Barbiturates Screen, Urine None Detected None Detected [facility] Comment: The barbiturate screen detects [...] Benzodiazepines Screen, Urine None Detected None Detected [facility] Comment: The benzodiazepines screen detects [...] Cocaine Screen, Urine None Detected None Detected [facility] Comment: The cocaine metabolites screen detects benzoylecgonine (Cocaine Metabolite) at concentrations >150 ng/mL. A ? Presumptive Positive? result indicates that the screening result was positive but has not yet been confirmed by a highly-specific method. As with any screen, occasional false positive results from cross-reacting substances may occur. Not for Medico-Legal Purposes. Methadone Metabolites Screen, Urine None Detected None Detected [facility] Comment: The methadone metabolite screen detects EDDP (major methadone metabolite) at concentrations >100 ng/mL. A ? Presumptive Positive? result indicates that the screening result was positive but has not yet been confirmed by a highly-specific method. As with any screen, occasional false positive results from cross-reacting substances may occur. Not for Medico-Legal Purposes. Opiate Screen, Urine None Detected None Detected [facility] Comment: The opiates screen detects [...] Cannabinoid Screen, Urine None Detected None Detected [facility] Comment: The marijuana metabolites screen detects the THC metabolite (98-kgj-6-carboxy-delta 9-THC) at concentrations >20 ng/mL. A ? Presumptive Positive? result indicates that the screening result was positive but has not yet been confirmed by a highly-specific method. As with any screen, occasional false positive results from cross-reacting substances may occur. Not for Medico-Legal Purposes. Oxycodone Screen, Urine None Detected None Detected [facility] Comment: The oxycodone screen detects oxycodone and oxymorphone at concentrations >100 ng/mL. A ? Presumptive Positive? result indicates that the screening result was positive but has not yet been confirmed by a highly-specific method. As with any screen, occasional false positive results from cross-reacting substances may occur. Not for Medico-Legal Purposes. Buprenorphine Screen, Urine None Detected None Detected [facility] Comment: The buprenorphine screen detects buprenorphine at concentrations >5 ng/mL. A ? Presumptive Positive? result indicates that the screening result was positive but has not yet been confirmed by a highly-specific method. As with any screen, occasional false positive results from cross-reacting substances may occur. Not for Medico-Legal Purposes. Fentanyl Screen, Urine None Detected None Detected [facility] Comment: The fentanyl screen detects fentanyl at concentrations >2 ng/mL. A ? Presumptive Positive? result indicates that the screening result was positive but has not yet been confirmed by a highly-specific method. As with any screen, occasional false positive results from cross-reacting substances may occur. Not for Medico-Legal Purposes. Tricyclics Screen, Urine None Detected None Detected [facility] Comment: The tricyclics screen detects [...] Ethanol Screen, Urine None Detected None Detected [facility] Comment:This urine ethanol a ssay detects ethanol at concentrations >/= 100 mg/L. Amphetamines Screen, Urine None Detected None Detected [facility] Comment: The amphetamine screen detects d-amphetamine and d-methamphetamine at concentrations >300 ng/mL. A ? Presumptive Positive? result indicates that the screening result was positive but has not yet been confirmed by a highly-specific method. As with any screen, occasional false positive results from cross-reacting substances may occur. Not for Medico-Legal Purposes. Adulterants Screen, Urine None Detected None Detected [facility] Comment: No adulteration or dilution [...] Burkett MD CHEMISTRY ORDERABLES Performing Organization Address City/[facility]/ZIP Co de Phone Number [facility] [place] [address] * (ABNORMAL) Urinalysis with reflex Culture (04/06/2018 1:25 PM EDT) Glucose, Urine Dipstick 50(A) Negative mg/dL [facility] Protein, Urine Dipstick >=500(A) Negative mg/dL [facility] Bilirubin, Urine Dipstick Negative Negative mg/dL [facility] Comment: Clinical correlation required for positive Urine Bilirubin results as false positive may occur with some drugs and drug related products. If a false positive is suspected a serum total bilirubin should be considered if clinically indicated. Urobilinogen, Urine Dipstick Normal Normal mg/dL [facility] pH, Urn (dipstick) 6.0 5.0 - 8.0 [facility] Blood, Urine Dipstick Small(A) Negative mg/dL [facility] Ketone, Urine Dipstick Negative Negative mg/dL [facility] Nitrite, Urine Dipstick Negative Negative [facility] Leukocytes, Urine Dipstick Negative Negative [facility] Appearance, Urine Dipstick Hazy(A) Clear [facility] Specific [place] Urine Automated 1.023 1.002 - 1.030 [facility] Color, Urine Dipstick Yellow Yellow [facility] Reflex to Culture No [facility] Urine specimen obtained by clean catch procedure (specimen) 04/06/2018 1:25 PM EDT 04/06/2018 1:30 PM EDT Narrative Resulting Agency Comment Spec In Lab Erwin Hernandez MD URINE ORDERABLES Performing Organization Address City/[facility]/ZIP Co de Phone Number [facility] [place] [address] * Rapid Drug Screen, Urine (RAUL Request) (04/06/2018 1:25 PM EDT) RAUL Conf Requested No [facility] Comment: Collection date/time has been modified to: 13:25:00. ??Previous collection date/time: 13:03:00. Corrected from No [NA] on 04/06/18 01:32 by Crystal Mueller RAUL Requested See Comment [facility] Comment: Refer to Rapid Drug Screen w/o Confirmation, Urine for results. Collection date/time has been modified to: 13:25:00. ??Previous collection date/time: 13:03:00. Corrected from See Comment [NA] on 04/06/18 01:32 by Crystal Mueller Urine specimen (specimen) 04/06/2018 1:25 PM EDT 04/06/2018 1:30 PM EDT Narrative Resulting Agency Comment Spec In Lab Erwin Hernandez MD URINE ORDERABLES Performing Organization Address City/[facility]/ZIP Co de Phone Number [facility] [place] [address] * CK (04/06/2018 1:15 PM EDT) [facility] Creatine Kinase 168 0 - 200 unit/L [facility] Blood specimen (specimen) Venous Draw / Unknown 04/06/2018 1:15 PM EDT 04/06/2018 2:22 PM EDT Narrative Resulting Agency Comment Spec In Lab Kavon Rob MD CHEMISTRY ORDERABLES Performing Organization Address City/[facility]/ZIP Co de Phone Number [facility] [place] [address] * Scan, Peripheral Blood (04/06/2018 1:15 PM EDT) Plat estimate Normal [facility] RBC Morphology Abnormal [facility] Ovalocytes 1-5 /HPF [facility] Niles Cells 1-5 /HPF [facility] Blood specimen (specimen) 04/06/2018 1:15 PM EDT 04/06/2018 1:24 PM EDT Narrative Resulting Agency Comment Spec In Lab Fabian Burkett MD HEMATOLOGY ORDERABLE S Performing Organization Address City/[facility]/ZIP Co de Phone Number [facility] [place] [address] * ABORH Recheck Status (04/06/2018 1:15 PM EDT) ABORH Type Recheck Completed [facility] Blood specimen (specimen) 04/06/2018 1:15 PM EDT 04/06/2018 1:20 PM EDT Narrative Resulting Agency Comment Spec In Lab Fabian Burkett MD BLOOD BANK LAB ORDER KELLY Performing Organization Address City/[facility]/ZIP Co de Phone Number [facility] [place] [address] * Blue Tube HOLD (04/06/2018 1:15 PM EDT) Blue Hold Sample in lab. [facility] Blood specimen (specimen) Venous Draw / Unknown 04/06/2018 1:15 PM EDT 04/06/2018 1:26 PM EDT Fabian Burkett MD HEMATOLOGY ORDERABLE S Performing Organization Address City/[facility]/ZIP Co de Phone Number [facility] [place] [address] * Gold Tube HOLD (04/06/2018 1:15 PM EDT) Gold Hold Sample in lab. [facility] Blood specimen (specimen) Venous Draw / Unknown 04/06/2018 1:15 PM EDT 04/06/2018 1:25 PM EDT Fabian Burkett MD [place] [address] * Blue Tube HOLD (04/06/2018 1:15 PM EDT) Pathologist [facility] Blue Hold Sample in lab. [facility] Blood specimen (specimen) Venous Draw / Unknown 04/06/2018 1:15 PM EDT 04/06/2018 1:26 PM EDT Fabian Burkett MD HEMATOLOGY ORDERABLE S Performing Organization Address City/[facility]/[place] [address] * (ABNORMAL) Differential, Automated (04/06/2018 1:15 PM EDT) [facility] Neutrophil % 78.7 % [facility] Neutrophil Absolute 12.22(H) 1.70 - 6.10 x10(3)/mc L [facility] Lymph % 10.3 % [facility] Lymphocytes Abs 1.6 0.9 - 3.2 x10(3)/mc L [facility] Monocyte % 9.8 % [facility] Monocyte Abs 1.5(H) 0.3 - 0.9 x10(3)/mc L [facility] Eos % 0.1 % [facility] Eosinophils Abs 0.0 0.0 - 0.4 x10(3)/mc L [facility] Basophil % 0.2 % [facility] Baso Absolute 0.0 0.0 - 0.1 x10(3)/mc L [facility] Immature Gran % 0.90 % [facility] Comment: Immature granulocytes(IG's)percentage and absolute count will include metamyelocytes, myelocytes, and promyelocytes. Blood smears from CBCs yielding IG's will be scanned manually for concordance. If this scan disagrees with the automated IG or if promyelocytes are noted, a manual differential will be performed. Immature Gran Absolute 0.14(H) 0.00 - 0.04 x10(3)/[place] [facility] LABORATORY Blood specimen (specimen) 04/06/2018 1:15 PM EDT 04/06/2018 1:24 PM EDT Narrative Resulting Agency Comment Spec In Lab Fabian Burkett MD HEMATOLOGY ORDERABLE S [facility] [place] [address] * (ABNORMAL) Hemogram (04/06/2018 1:15 PM EDT) White Blood Cell 15.5(H) 4.0 - 9.5 x10(3)/[facility] LABORATORY Red Blood Cell 3.80(L) 4.58 - 5.54 x10(6)/[facility] LABORATORY Hemoglobin 11.5(L) 13.7 - 16.5 gm/dL [facility] Hematocrit 35.2(L) 40.5 - 48.5 % [facility] Mean Cell Volume 92.6 82.9 - 93.1 [facility] LABORATORY Mean Cell Hemoglobin 30.3 27.5 - 32.1 pg [facility] Mean Cell Hemoglobin Concentration 32.7 32.0 - 35.7 gm/dL [facility] Platelet 145 145 - 357 x10(3)/[facility] LABORATORY RDW Standard Deviation 53.2(H) 36.0 - 45.0 [facility] LABORATORY RDW coefficient of variation 15.9(H) 11.4 - 13.8 % [facility] Mean Platelet Volume 9.0 7.6 - 12.9 [facility] LABORATORY NRBC% auto 0.0 % [facility] LABORATORY NRBC Absolute 0.000 0.000 - 0.000 x10(3)/[facility] LABORATORY Blood specimen (specimen) 04/06/2018 1:15 PM EDT 04/06/2018 1:24 PM EDT Narrative Resulting Agency Comment Spec In Lab Fabian Burkett MD HEMATOLOGY ORDERABLE S [facility] [place] [address] * Antibody screen (04/06/2018 1:15 PM EDT) Ab Screen Interp Negative [facility] Expires at [id number] on: 04/09/2018 [facility] Blood specimen (specimen) 04/06/2018 1:15 PM EDT 04/06/2018 1:20 PM EDT Narrative Resulting Agency Comment Spec In Lab Fabian Burkett MD BLOOD BANK LAB ORDER KELLY Performing Organization Address City/[facility]/ZIP Co de Phone Number [facility] [place] [address] * ABO/Rh Typing (04/06/2018 1:15 PM EDT) ABORH Type A Pos [facility] Comment: 04/06/2018 15:10 ??CHASDM ABO/Rh determined (Acc# [id number]) to be A pos. Blood specimen (specimen) 04/06/2018 1:15 PM EDT 04/06/2018 1:20 PM EDT Narrative Resulting Agency Comment Spec In Lab Fabian Burkett MD BLOOD BANK LAB ORDER KELLY [facility] [place] [address] * Fibrinogen (04/06/2018 1:15 PM EDT) Fibrinogen 255 200 - 393 mg/dL [facility] Comment: A fibrinogen level >100 mg/dL is adequate for hemostasis in most patients without underlying bleeding disorders. Blood specimen (specimen) 04/06/2018 1:15 PM EDT 04/06/2018 1:24 PM EDT Narrative Resulting Agency Comment Spec In Lab Erwin Hernandez MD HEMATOLOGY ORDERAB LES Performing Organization Address [facility] Co de Phone Number [facility] [place] [address] * Ethanol Level (04/06/2018 1:15 PM EDT) Ethanol <100 <=99 mg/L [facility] Comment: Greater than 800 mg/L (0.08%) should be considered intoxicated. 3400 to 4500 mg/L (0.34 - 0.45%) is considered severe intoxication. Greater than 5500 mg/L (0.55%) is usually fatal. Blood specimen (specimen) 04/06/2018 1:15 PM EDT 04/06/2018 1:24 PM EDT Narrative Resulting Agency Comment Spec In Lab Erwin Hernandez MD CHEMISTRY ORDERABL ES Performing Organization Address [facility] Co de Phone Number [facility] [place] [address] * APTT (04/06/2018 1:15 PM EDT) Partial Thromboplastin Time 31 25 - 37 sec [facility] Comment: The PTT is NOT appropriate for heparin monitoring. Use the Anti-Xa level for heparin monitoring (HEP UFH) or LMWH monitoring (HEP LMW). A PTT less than 37 seconds generally indicates adequate hemostasis. Blood specimen (specimen) 04/06/2018 1:15 PM EDT 04/06/2018 1:24 PM EDT Narrative Resulting Agency Comment Spec In Lab Erwin Hernandez MD HEMATOLOGY ORDERAB LES Performing Organization Address [facility] Co de Phone Number [facility] [place] [address] * (ABNORMAL) Prothrombin Time (04/06/2018 1:15 PM EDT) Prothrombin Time 29.1(H) 9.4 - 12.5 sec [facility] International Normalization Ratio 2.6 [facility] Comment: An INR <2.0 indicates [...] Lab Erwin Hernandez MD HEMATOLOGY ORDERAB LES [facility] [place] [address] * (ABNORMAL) Basic Metabolic Panel (non-fasting) (04/06/2018 1:15 PM EDT) Pathologist [facility] Glucose 219(H) 65 - 199 mg/dL [facility] Comment:Diabetes: >=200 mg/d L plus symptoms Blood Urea Nitrogen 39(H) 10 - 20 mg/dL [facility] Creatinine 2.01(H) 0.80 - 1.50 mg/dL [facility] Sodium 140 135 - 145 mmol/L [facility] Potassium 5.2(H) 3.5 - 5.0 mmol/L [facility] Comment: Please note: ??Patients with WBC >100,000 may have falsely elevated Potassium levels. ??For accurate Potassium quantification in these patients send serum separator tube (gold top) for subsequent determinations. ??Contact the Clinical Chemistry Laboratory if there are any questions. Chloride 116(H) 98 - 107 mmol/L [facility] Carbon Dioxide 15(L) 22 - 31 mmol/L [facility] Anion Gap 9 5 - 15 mmol/L [facility] Calcium 4.9(Criti constance) 8.5 - 10.5 mg/dL [facility] Comment:Called by: lorelei, Read back by: misael luong_, Date/Time:04/06/18 14:04. Est Glomerular Filtration Rate 36(L) >=60 mL/min/1. 73 m?? [facility] Comment: The eGFR was calculated using the CKD-EPI equation. As with all creatinine based estimates of kidney function, eGFR values calculated with the CKD-EPI equation are not accurate in patients with acute kidney failure, extremes of body mass or the acutely ill. http://[employer]/[facility] eGFR 42(L) >=60 mL/min/1. 73 m?? [facility] Comment: The eGFR was calculated using the CKD-EPI equation. As with all creatinine based estimates of kidney function, eGFR values calculated with the CKD-EPI equation are not accurate in patients with acute kidney failure, extremes of body mass or the acutely ill. [email or web address]/[facility] Blood specimen (specimen) 04/06/2018 1:15 PM EDT 04/06/2018 1:24 PM EDT Narrative Resulting Agency Comment Spec In Lab Erwin Hernandez MD CHEMISTRY ORDERABL ES [facility] [place] [address] * XR Chest AP and Pelvis AP [...] pH, Arterial 7.14(Criti constance) 7.35 - 7.45 [facility] Comment:Noted by instrumentation instructor. PCO2, Arterial 51(H) 35 - 45 mmHg [facility] PO2, Arterial 38(Critica l) 85 - 104 mmHg [facility] Comment:Noted by instrumentation instructor. Bicarbonate, Arterial 16.7(L) 20.0 - 26.0 mmol/L [facility] Base Excess, Arterial -12.4(L) -3.0 - 3.0 mmol/L [facility] Hgb Blood Gas 12.3(L) 13.7 - 16.5 gm/dL [facility] Oxyhemoglobin, Arterial 69.1(L) 94.0 - 97.0 % [facility] Carboxyhemoglob in, Arterial 0.3 % [facility] Comment: Nonsmokers: 0.5-1.5% COHB Smokers: Variable, but usually less than 10% Toxic: 20-30% COHB Lethal: Greater than 60% COHB Methemoglobin, Arterial 0.4 <=1.5 % [facility] Na Whole Blood 137 135 - 145 mmol/L [facility] K Whole Blood 6.3(Critic al) 3.5 - 5.0 mmol/L [facility] Comment: Noted by instrumentation instructor. Please note: Patients with WBC >100,000 may have falsely elevated Potassium levels. Contact the Clinical Chemistry Laboratory if there are any questions. ICa Whole Blood 1.01(L) 1.15 - 1.33 mmol/L [facility] Comment: Note: ??Total bilirubin higher than 20 mg/dL may lead to falsely low ionized calcium. CL Whole Blood 112(H) 98 - 107 mmol/L [facility] Gluc Whole Bld 258(H) 65 - 199 mg/dL [facility] Comment:Diabetes: >=200 mg/d L plus symptoms. Lactate WB 2.0 0.5 - 2.2 mmol/L [facility] Blood specimen (specimen) 04/06/2018 1:14 PM EDT 04/06/2018 1:14 PM EDT Erwin Hernandez MD POINT OF CARE TEST ORDERABLES Performing Organization Address [facility]/ZIP Co de Phone Number [facility] [place] [address] * Prepare RBC (04/06/2018 1:05 PM EDT) Dispensed? Yes [facility] Blood specimen (specimen) 04/06/2018 1:05 PM EDT 04/06/2018 1:03 PM EDT Erwin Hernandez MD BLOOD BANK PRODUCT ORDERABLES Performing Organization Address [facility] Co de Phone Number [facility] [place] [address] * Film Library- Storage Only CT Chest Abdomen Pelvis (04/06/2018 12:05 AM EDT) Narrative [facility] - 04/06/2018 2:07 PM EDT This exam is for storage only and is auto-finalizing. Fabian Burkett MD [facility] FILM LIBRARY ORD ERABLES Performing Organization Address [facility] Co de Phone Number [place], [place] * SCAN DOC: IMPLANTABLE DEVICES (04/06/2018 12:00 AM EDT) Narrative 04/06/2018 12:00 AM EDT Ordered by an unspecified provider. Scanning Provider MEDIA MGR SCAN EXT O RDR/RSLT * Film Library- Storage Only CT Head And Spine (04/06/2018 12:00 AM EDT) Narrative RAD - 04/06/2018 1:32 PM EDT This exam is for storage only and is auto-finalizing. Fabian Burkett MD [facility] FILM LIBRARY ORD ERABLES Performing Organization Address City/[facility] Co de Phone Number [place], [place] * SCAN DOC: LAB (04/06/2018 12:00 AM EDT) Narrative 04/06/2018 12:00 AM EDT Ordered by an unspecified provider. 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
--- OUTSIDE RECORDS SUMMARY | 2024-05-23 13:22 | XMS_ITS | Encounter Summary ---
Author Organization [facility] [place] [address] Care Team Providers Care Buck Swamper Name Role Phone Alfredo Carroll MIX Primary Care Provider [phone] Reason for Visit * Auth/Cert Specialty Diagnoses [...] Expiration Date Visits Re quested Visits Authorized [id number] 1 1 Encounter Details Date Type Department Care Team (Late st Contact Info) Description 04/26/2018 11:36 AM EDT Anesthesia [place] [id number] Lucrecia Solis MD [facility] [place] [address] Portillo Varghese CRNA [facility] [place] [address] Anesthesia Record Procedure Summary Procedure Name Responsible [...] cephalic vein (lateral side of arm), right; [id number] catheter system; 20 gauge, 1 in length; [...] Solis MD - 04/26/2018 2:51 PM EDT [facility] Department of Anesthesiology Post-procedure Note Patient: Adama Ram Procedure Summary Date: 04/26/18 Room / Location: [facility] OR [address] [place] [address] MAIN OR Anesthesia Start: 1136 Anesthesia Stop: 1239 Procedures: SPLIT THICK SKIN GRAFT,100 SQ CM OR LESS, ARMS (WRVU 9.9) (Left Leg) EA.ADDITIONAL 100SQ.CM STSG (WRVU 1.72) (N/A Leg) MODIFIER WOUND VAC (N/A ) Diagnosis: (wound of arm) Surgeon: Silviano Sparks MD Responsible Provider: Lucrecia Solis MD Anesthesia Type: general ASA Status: 3 All Anesthesia Providers: Anesthesiologist: Lucrecia Solis MD PAIN COORDINATOR: Charles OctoberHARRISON Most Recent Vitals: 04/26/18 1338 BP: 138/89 Pulse: Resp: 12 Temp: 36.7 ??C (98.1 ??F) SpO2: 96% Pain 2 (04/26/18 1355) Patient Location: PACU/[facility] Level of Consciousness: Awake and Alert [...] consented to blood products. Plan discussed with PAIN COORDINATOR. PAT Staff Note documented in this encounter [...] mL/hr documented in this encounter Care Teams Buck Swamper Relationship Specialty Start Date End Date Carroll Fuentes DO [address] [place] [address] PCP - General 09/23/11 10/20/22 documented as of this encounter
--- OUTSIDE RECORDS SUMMARY | 2024-05-23 13:24 | XMS_ITS | Encounter Summary ---
Author Organization [facility] Address [facility] [place] [address] Care Team Providers Care Environmental Designer Name Role Phone AlfredoCarroll allison Primary Care Provider [phone] Reason for Visit * Reason Comments Trauma [...] Expiration Date Visits Re quested Visits Authorized [id number] 1 1 Encounter Details Date Type Department Care Team (Late st Contact Info) Description 04/26/2018 10:35 AM EDT - 04/26/2018 12:03 PM EDT Surgery [place] [address] Hay Sparks MD [facility] [place] [address] SPLIT THICK SKIN GRAFT,100 SQ CM OR [...] epilepsy, and prior TBI who presents to [facility] s/p LUE bleeding with PEA [...] Pt intubated in field. Pt taken to [facility], where second tourniquet applied and pt received 6U PRBC. Transferred to [facility] for further care. Of note, [...] Studies: none Discharge Conditions/Prognosis: Good [facility]charge to: [facility] [address] [place] [id number] Discharge Medications: Your Medications New Medications Dose [...] draw weekly CBC/CMP with results sent to [facility] Infectious disease. See wound care [...] For any problems or questions please call [phone] YEIMY Fallon, physical chemist Nurse Clinician For issues on weeknights after 5pm and weekends please call [phone] and ask for the Vascular Fellow regional planner. General Instructions Plastic Surgery Wound Care Instructions [...] about scheduling, please contact our administrative officesat [phone] For clinical questions, please call our nurses at [phone] Both offices are open Wednesday thru Wednesday 8a - 5p. With emergencies after hours, call the hospital mult au matic operator at [phone] and ask for the Plastic Surgery Resident regional planner. Future Appointments and Orders Future Appointments and Orders Future Appointments Provider Department Dept Phone 05/17/2018 10:20 AM Laina Disla APRN Plastic Surgery at [facility] Arrive at: [facility] 4M [phone] 05/17/2018 11:30 AM Kurt Medina MD Infectious Disease at [facility] Arrive at: [facility] 5C [phone] 05/17/2018 12:30 PM Nilda Minaya RN Vascular Surgery at [facility] Arrive at: [facility] 3V [phone] 05/27/2018 10:15 AM Lida Peter MD Vascular Surgery at [facility] Arrive at: [facility] 3V [phone] 08/18/2018 10:30 AM Chanel Smith MD Dermatology at [facility] [phone] Future Orders Complete By Expires OPAT: Order / Recommendation for Post Discharge IV Antibiotic Management [DHZ707 CPT(R)] As directed Process Instructions: If no progress note charted, please enter Clinical details in comments. Scheduling Instructions: Comments: Please Fax all results to: OPAT Program Infectious Disease Section [facility] [place], [place] [address] FAX: Line care instructions per [facility] OPAT Program protocol. After hours, please contact the Infectious Disease Physician regional planner at . If this order was signed greater than 72 hours prior to [facility] discharge, please call to confirm [...] about scheduling, please contact our administrative officesat [phone] For clinical questions, please call our nurses at [phone] Both offices are open Wednesday thru Wednesday 8a - 5p. With emergencies after hours, call the hospital mult au matic operator at [phone] and ask for the Plastic Surgery Resident regional planner. * Patient Instructions* Nilda Minaya RN - [...] For any problems or questions please call [phone] YEIMY Fallon, physical chemist Nurse Clinician For issues on weeknights after 5pm and weekends please call [phone] and ask for the Vascular Fellow regional planner. documented in this encounter Medications at Time [...] Pt will be transferred at Noon via [facility]. I called pt brother Lucas to inform. He was with JANICE Guzman from [facility]. Our SW Bia spoke with Lucas as well about continuing the LT Medicaid application process. Nurse to Nurse report number given to pt's staff nurse Danny. Discharge envelope started; still needed discharge summary, medication sheets and prescription added. Please call CM if needed for further pt discharge needs. Padmini Ruiz RN [phone] * Reynaldo Jade - 05/04/2018 8:58 AM EDT Office of Care Management/Biomedical Engineering Aide Patient Name: Christy Ambrose : 1960 Patient has been offered a SNF bed at [facility] for today, 05/04/18 [facility] arranged for a 12:00 pm transport. Ambulance will need: Medicare ambulance form completed and signed (MD or Choir Accompanist RN/DISTILLATION OPERATOR) Copy of patient demographics [place] [facility] DNR/DNI order, if active No MD to MD report necessary Please call Nursing Report to [phone], ask for veneer jointer operator. Info to accompany patient: Narcotic Prescriptions Copies of Medication Administration Records and IV sheets for past 10 days. Plan: Biomedical Engineering Aide will be available to the patient and Choir Accompanist-RN and/or Social Workerfor further assistance. Patient will be discharged to: [address] [address] Reynaldo Jade, Biomedical Engineering Aide * Chasidy Monahan PA - 05/04/2018 7:47 [...] AM Laina Disla APRN [facility] 4[facility] 05/17/2018 11:30 AM Kurt Medina MD [facility] 5C [facility] 05/17/2018 12:30 PM Nilda Minaya RN Le[facility] V [facility] 08/18/2018 10:30 AM Chanel Smith MD [facility] PANCHITO Rios Pager: [phone] * Nayeli Wilde, SAVANNA - 05/03/2018 8:29 PM EDT Images from the original note were not included. PRN dressing change Dressing prior to change Dressing after change * Natalya Wan MSW - 05/03/2018 5:01 PM EDT DISTILLATION OPERATOR and RNTORIBIO Chaidez met with Christy, his mother Ilda (HDPOA), and his brother Lucas (HDPOA and FPOA). All three parties accepted a bed offer at [facility] for rehab and hope thatif a bed becomes available at [facility] Christy can be transferred. 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 * Nicole Hamilton LD - 05/03/2018 2:04 PM EDT Nutrition Progress Note Christy Ginna Ambrose is a 57 y.o. male Reason for intervention: Follow up Nutrition Recommendations: Could liberalize diet to [facility] Continue to monitor potassium trends Monitor [...] encounter: 84.3 kg (185 lb 13.6 oz). [place] Body Weight (IBW): [place] body weight: 73.2 kg (161 lb 5.4 [...] intakes. Potassiumnormal, could consider liberalizing diet to [facility]/Cardiac. Patient denies any questions/concerns rega [...] by primary team Javier Nolan MD Pager: [phone] * Tristin Marrero MD - 05/03/2018 7:40 [...] ongoing. Angelina Marrero Vascular Surgery, PGY3 Pager #[phone] * Tristin Marrero MD - 05/02/2018 12:35 [...] recommendations. Angelina Marrero Vascular Surgery, PGY3 Pager #[phone] * Chasidy Monahan PA - 05/02/2018 9:16 [...] team PANCHITO Rios Plastic Surgery Team Pager: [phone] * Natalya Jacobsen MD - 05/01/2018 9:15 [...] Aditi Mccollum MD Plastic Surgery Resident P# [phone] * Natalya Jacobsen MD - 04/30/2018 9:23 [...] Aditi Mccollum MD Plastic Surgery Resident P# [phone] * Natalya Jacobsen MD - 04/29/2018 2:00 [...] General Surgery PGY-1 [id number] * Natalya Wan DISTILLATION OPERATOR - 04/29/2018 11:21 AM EDT DISTILLATION OPERATOR spoke with patients mother and [facility] DISTILLATION OPERATOR who are following up today by completingChoices for Care application. Mother told DISTILLATION OPERATOR patient was fully independent until this event. [...] 10:30 AM NURSE, PLASTIC SURGERY [facility] [address] [place] [address] CLIN 05/02/2018 12:30 PM Natalya Ojeda MD Leb V [facility] 08/18/2018 10:30 AM Chanel Smith MD [facility] Laura Bauman MD Plastic surgery team pager: [phone] 04/29/2018 6:48 AM * Tonie Kumar - 04/28/2018 2:37 PM EDT Narrative: Visited to introduce and assess acceptance of Supervisor Receiving And Processing services. Pt was awake, alert, oriented and [...] Provided emotional, spiritua support and encouraging presence. Supervisor Receiving And Processing services accepted.Conversation to build trusting relationship.Provided pastoral [...] 10:30 AM NURSE, PLASTIC SURGERY [facility] [address] [place] [address] CLIN 05/02/2018 12:30 PM Natalya Ojeda MD [facility] 08/18/2018 10:30 AM Chanel Smith MD [facility] PANCHITO Moser Plastic surgery team pager: [phone] 04/28/2018 8:12 AM Attending: Plan discussed and [...] questions Danielle Peoples, Infectious Disease Fellow Pager [phone] Associated attestation - Kurt Medina MD - [...] Plastic Surgery Service Progress Note ID: Christy Ambroes is a 57 y.o. old male w/hx [...] team PANCHITO Rios Plastic surgery team pager: [phone] 04/27/2018 8:46 AM Attending: Plan discussed and [...] stable - UOP adequate Thelma Solitario Pager: [phone] 04/27/18 * Domi Norman RN - 04/26/2018 [...] Note Recommendation/Plan: Diet at MD discretion, consider [facility] diet with K restriction May liberalize to [facility] if K is WNL Appreciate [...] / appropriate for Occupational Therapy Services. Pager [phone] NICKY Irizarry/John Occupational Therapy Rehabilitation Department * [...] team PANCHITO Rios Plastic surgery team pager: [phone] 04/26/2018 8:01 AM Attending: Pt seen and [...] Danielle Peoples DO Infectious Disease Fellow Pager [phone] Associated attestation - Kurt Medina MD - [...] for skin grafting (04/26) - NPO at [facility] - Obtain consent or OR tomorrow - no need to hold [facility] PANCHITO Rios Plastic surgery team pager: [phone] 04/25/2018 1:10 PM Attending: Plan discussed and [...] 27 27 27 Microbiology ?? Tissue culture [[id number]] (Abnormal) Collected: 04/19/18924 ? Lab Status: Preliminary result Specimen: Skin Updated: 04/20/18758 ? Tissue Culture No growth to date. (A) ? Gram Stain -- (A) ? Many Neutrophils seen Rare Gram Negative Rods seen New Studies None Assessment & Plan Chirsty Ginna Ambrose is a 57 y.o. male [...] - skin grafting Wednesday - NPO at [place] Wednesday night - no need to hold [...] 27 27 27 Microbiology ?? Tissue culture [[id number]] (Abnormal) Collected: 04/19/18924 ? Lab Status: Preliminary [...] course of therapy. Associated attestation - Katarzyna uGevara MD - 04/22/2018 5:02 PM EDT I [...] O: Telephone call received from Rachna Muro ([facility]) who reports that patient's Mother is already assigned to worker Lalitha. Rachna suggested I call Mother and remind her that she has made contact with the agency. Rachna cannot release any information to [facility] without a signed release. Multiple Cut Off Saw Operator attempted to call Mother today, no answer, voice mailbox is full and cannot be accessed. P: Will attempt to reach Mother later today. Will continue to follow with team. * Bahrgavi Junior MD - 04/22/2018 7:47 AM EDT [...] PTT 27 27 27 Microbiology Tissue culture [[id number]] (Abnormal) Collected: 04/19/18924 ? Lab Status: Preliminary [...] just returned from ambulating unit3x w/ staff assistant. RN reports pt is supervision while ambulating to/from bathroom and requires min A for hygiene thoroughness. Pt deferred OT until tomorrow; pt education provided re: importance of frequent functional mobility and participation w/ ADL tasks. Will follow up as available / appropriate for Occupational Therapy Services. Pager [phone] Dania Ramirez. NICKY Oliveira/John Occupational Therapy Rehabilitation [...] PTT 27 27 27 Microbiology Tissue culture [[id number]] (Abnormal) Collected: 04/19/18924 ? Lab Status: Preliminary [...] Transplant: continue current immunosuppression regimen. Appreciate input. [facility] Vascular Surgery * Kelsey Tyler, [...] encounter: 86.2 kg (190 lb 0.6 oz). [place] Body Weight (IBW): [place] body weight: 73.2 kg (161 lb 5.4 [...] Lombardi Beeper #: [phone] * Karis Mejia, DISTILLATION OPERATOR - 04/20/2018 11:29 AM EDT Discharge Planning: O: Telephone call to patient's Mother Ilda who reports that she was unable to connect with her local [facility]. Unfortunately I believe that Ilda may be overwhelmed by patient's admission and events leading up to hospitalization. Ilda reports that there are repairs that need to be completed in the family home and that a staff member at [facility] (she cannot identify) has told her that patient can not return home. I offered support to Ilda and suggested that I would contact the [place] and ask them to outreach to her. She was appreciative. Telephone call to Rachna Muro ([facility] [phone]), voice mail message relaying above information. P: Await call back from Rachna, continue to liaison with Mother and offer support around discharge planning. 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 -No acute indication for ACID CONDENSER ,,Strict intake and out put monitoring,Daily weights,Renal [...] PTT 27 27 27 Microbiology Tissue culture [[id number]] (Abnormal) Collected: 04/19/18924 ? Lab Status: Preliminary [...] regimen. Angelina Marrero Vascular Surgery, PGY3 Pager #[phone] * Karuna Nagel, RN - 04/19/2018 10:28 [...] Angelina Devries Elida Vascular Surgery, PGY3 Pager #[phone] * Selma Fontanez PTA - 04/18/2018 2:14 PM EDT Physical Therapy Note Patient having bedside vac change with pain meds. Will follow up with patient tomorrow. Selma Fontanez PTA Pager# [phone] * Tristin Marrero MD - 04/18/2018 12:22 [...] jensen [phone] 04/18/2018 12:22 PM * Karine aCrroll RN - 04/18/2018 5:42 AM EDT - Christy Ambrose denies symptoms of SOB, dizziness, chest pain, numbness or tingling - Please see tele strip in chart - Pt tolerating current rate and rhythm, iwlliams at times especially during sleep - Continue [...] kidney disease. - No acute indication for ACID CONDENSER, Strict intake and out put monitoring, Daily [...] kidney disease. - No acute indication for ACID CONDENSER, Strict intake and out put monitoring, Daily [...] performed by Miguel Angel Moreno MD at [facility] MAIN OR ??? PRO DECOMPRESS FOREARM, BRACH ART EXPLOR Left 04/06/2018 FASCIOTOMY, FOREARM, WITH BRACHIAL ARTERY EXPLORATION (WRVU 8.41) performed by Lida Peter MDat [facility] MAIN OR ??? PRO DIRECT REPAIR RUPTURED ANEURYSM, AXILLO-BRACHIAL ARM INCIS Left 04/06/2018 @REPAIR, RUPTURED AXILLARY OR BRACHIAL ARTERY ANEURYSM BY ARM INCISION (WRVU *) performed by Lida Peter MD at [facility] MAIN OR ??? PRO EXC PAROTD, TOTAL, UNILAT RAD NECK Left 02/05/2016 @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, TOTAL, WITH UNILATERAL RADICAL NECK DISSECTION performed by Miguel Angel Moreno MD at [facility] OR ??? PRO EXC SKIN MALIG 3.1-4CM FACE, FACIAL Left 02/05/2016 EXC MALIGNANT LESION, 3.1 TO 4.0CM, FACE performed by Miguel Angel Moreno MD at [facility] MAIN OR ? ? PRO EXC SKIN MALIG >4CM TRUNK, ARM, LEG 04/19/2012 EXC MALIGNANT LESION, MICHAEL > 4.0CM, TRUNK performed by SABRINA MEDRANO at [facility] OR ??? PRO LAP, RADICAL NEPHRECTOMY Left 05/31/2017 @LAPAROSCOPY, RADICAL NEPHRECTOMY (WRVU 25.06) performed by Jax Mills MD at [facility] OR ??? PRO REBL VES GRAFT, UP EXTREM Left 04/06/2018 REPAIR BLOOD VESSEL WITH GRAFT OTHER THAN VEIN, UPPER EXTREMITY (WRVU 15.83) performed by Lida Peter MD at [facility] OR ??? PRO RELIEVE PRESSURE ON NERVE(S) Left 04/06/2018 (MSURG) CARPAL TUNNEL (WRVU 4.82) performed by Hay Sparks MD at [facility] OR ??? PRO REPAIR INTERMEDIATE S/A/T/E 2.6-7.5 CM 04/19/2012 REPAIR INTERMEDIATE WOUND, (NO HANDS OR FEET) 2.6 TO 7.5CM, UPPER EXTREMITY performed by SABRINA MEDRANO at [facility] OR ? ? PRO REPAIR INTERMEDIATE S/A/T/E > 30.0 CM Left 04/14/2018 REPAIR INTERMEDIATE WOUND, (NO HANDS OR FEET) >30.0CM, UPPER EXTREMITY (WRVU 5) performed by Yimi Easton MD at [facility] OR ??? PRO REVISE MEDIAN N/CARPAL TUNNEL SURG Left 04/06/2018 MEDIAN NERVE DECOMPRESSION (CARPAL TUNNEL RELEASE) (WRVU 4.97) performed by Lida Peter MD [facility] MAIN OR ? ? PRO SPLIT GRFT, HEAD, FAC, HAND, FEET <100SQCM N/A 02/20/2016 SPLIT THICKNESS SKIN SPLIT GRAFT,100SQ CM OR LESS, NECK performed by Miguel Angel Moreno MD at [facility] MAIN OR ??? PRO UPPER GI ENDOSCOPY, BIOPSY N/A 05/13/2017 EGD WITH BIOPSY (WRVU 2.49) performed by Aditya Barrera MD at [facility] ENDOSCOPY ??? PRO VASCULAR SURGERY PROCEDURE UNLIST Left 11/20/2015 LIGATION\REPAIR AV FISTULA performed by Camilo Ireland MD at [facility] MAIN OR ??? PRO VASCULAR SURGERY PROCEDURE UNLIST Left 11/20/2015 EXCISION VEIN FROM HAND performed by Camilo Ireland MD at [facility] MAIN OR ??? US RENAL TRANSPLANT BIOPSY 12/31/2010 Reason for Nutrition Intervention: Initial assessment Diet Order: Regular Appetite: Good Food allergies: None documented Chewing/Swallowing difficulty: none, cleared for regular diet and thin liquids per RN EMBEDDED Estimated body mass index is 28.91 kg/(m^2) [...] being worked up for possible intracranial event. RN EMBEDDED cleared patient for regular diet and thin liquids. Patient has been tolerating this well, but per RN this morning he did not eat d/t nausea. Thiscould be attributed to pain meds on empty stomach. RN EMBEDDED and OT in with patient at time of attempt this morning, will check back in afternoon. Patient seen this afternoon having eaten ~50% of his lunch, appeared to still be eating as well. Hehas difficulty recalling his diet FLOOR HELPER. He is not sure if he has [...] 1960 Admit date: 04/06/2018 Attending Physician: Chase Ovlera MD ID: Christy Ambrose is a 57 [...] kidney disease. - No acute indication for ACID CONDENSER, Strict intake and out put monitoring, Daily [...] kidney disease. - No acute indication for ACID CONDENSER, Strict intake and out put monitoring, Daily weights, Renal dosing for medications - Hypertension: was on hydralazine 50 mg BID,diltiazem 120 mg XT daily ,metorpolol 50 mg TID,losartan 25 mg daily at home.Will recommend to restart his home meds and continue holding losartan in the setting of TRISTIAN. Tim Ogden MD * Karis Mejia DISTILLATION OPERATOR - 04/13/2018 1:17 PM EDT O: Requested by CM to continue to communicate with Mother re discharge planning. Multiple Cut Off Saw Operator spoke with Mother today who is glad to hear that patient is progressing. Mother has an appointment on 04/15/18 with the [place] [facility] to discuss [place] [facility]. She also had questions about filing for SSDI for patient. Multiple Cut Off Saw Operator suggested that she contact with [facility] officeand make an appointment to speak with someone there. Multiple Cut Off Saw Operator also indicated that Mother should take along supportive friend as there can be a lot of information to digest and understand. A: Mother remains pleasant and actively engaged in treatment planning for patient. She is hopeful that he will be able to complete his rehab stay at [facility] but understands that he may need to go farther from home. P: Will continue to follow with team, liaison with Mother. Available to assist as needed/requested. 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 -No acute indication for ACID CONDENSER ,,Strict intake and out put monitoring,Daily weights,Renal [...] kidney disease. - No acute indication for ACID CONDENSER, Strict intake and out put monitoring, Daily weights, Renal dosing for medications - Hypertension: was on hydralazine 50 mg BID,diltiazem 120 mg XT daily ,metorpolol 50 mg TID,losartan 25 mg daily at home.Will recommend to restart his home meds and continue holding losartan in the setting of TRISTIAN. Tim Ogden MD * Ajay Alexandre - 04/12/2018 2:08 PM EDT Supervisor Receiving And Processing Encounter Note Patient Name: Christy Ambrose : [id number] MR#: [id number] Admit Date: 04/06/2018 12:58 PM Hospital Day 6 days Narrative: Seen on technical programs manager Rounds. Sitting in recliner. Cordial. Expression bemused, [...] chronic kidney disease. -No acute indication for ACID CONDENSER, Strict intake and out put monitoring, Daily weights, Renal dosing formedications - Hypertension: was on hydralazine 50 mg BID,diltiazem 120 mg XT daily ,metorpolol 50 mg TID,losartan 25 mg daily at home.Will recommend to restart his home meds and continue holding losartan in the setting of TRISTIAN. 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 -No acute indication for ACID CONDENSER ,,Strict intake and out put monitoring,Daily weights,Renal [...] 04/11/2018 Neurology resident, PGY-3 Vascular Neurology Pager [phone] Associated attestation - Tim Collins MD - [...] spirometry Anticipated Discharge Disposition: inpatient rehabilitation facility [facility] Inpatient Physical Therapy Patient status, treatment interventions, and goals discussed with student. I am in agreement with all details and associated flowsheet rows as documented and was present for all aspects of the patient treatment session. Kelsey Hua, PT Pager # [phone] PT Evaluation Code Rationale: ?? Diagnosis & [...] cook, clean independently. 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 pt usually [...] Assessment/Treatment Assistive Device (Bed Mobility) bed rails Kceito-my-Yqs Garvin (Bed Mobility) minimum assist (75% patient effort) Comment (Bed Mobility) HOB elevated Transfer Assessment/Treatment Garvin (Sit-Stand Transfers) moderate assist (50% patient effort);verbal cues required;2 person assist required Garvin (Stand-Sit Transfers) moderate assist (50% patient effort);verbal cues required;2 person assist required Fnx-Oqouh-Rsi Assistive Device (Transfers) rolling walker (initially transfered mod x2 w/o AD, poor balance) Safety Issues (Transfers) loses balance backward (lost balance forward initially) Impairments (Transfers) balance impaired;strength decreased;pain Comment (Transfers) cues for hand placement on RW Gait Assessment/Treatment Garvin (Gait) moderate assist (50% patient effort);verbal cues [...] good balance Sitting Balance: Dynamic fair balance Hzp-vd-Ikker Balance poor balance Standing Balance: Static poor [...] to sit/sit to sidelying Bed Mobility Goal, Garvin Level independent Gait Training Goal Gait Training Goal, Date Established 04/11/18 Gait Training Goal, Time to Achieve 2 wks Gait Training Goal, Garvin Level independent Gait Training Goal, Assist Device other (see comments) (LRD ) Gait Training Goal, Distance to Achieve 150 ft Transfer Training Goal Transfer Training Goal, Date Established 04/11/18 Transfer Training Goal, Time to Achieve 2 wks Transfer Training Goal, Activity Type all transfers Transfer Train Goal, Garvin Level independent Transfer Training Goal, Assist Device [...] treatment session. Kelsey Hua PT Pager # [phone] * Karis Mejia MSW - 04/11/2018 1:15 PM EDT Discharge Planning: O: Requested by CM-RN to contact Mother re her concerns around housing. Multiple Cut Off Saw Operator spoke with Mother who relayed that she [...] and plans to speak with her local [place] [facility]. Multiple Cut Off Saw Operator suggested to Mother that she begin to have a conversation with them around [place] as that would be the payor source for patient. Mother is also interested in finding out what the discharge plan will be. Multiple Cut Off Saw Operator relayed that a CM-RN would be in [...] will follow up with Transplant Nephrology/[facility] today Tim Ogden MD * Odalis Castanon [...] MD/NEHA, PGY-5 Section of Vascular Surgery, Pager [phone] * Tim Ogden MD - 04/10/2018 10:57 [...] 04/09/2018 Neurology resident, PGY-4 Vascular Neurology Pager [phone] ... I saw and evaluated the patient [...] MD/NEHA, PGY-5 Section of Vascular Surgery, Pager [phone] * Alfonzo Miles MD - 04/08/2018 4:56 [...] initiated. Alfonzo Miles MD [place] [address] Pager: [phone], #[phone] Email: [email or web address] [place] * Sharmin Barth RN - 04/08/2018 12:34 PM EDT [facility] RESPONSE TEAM NOTE Name: Christy Ambrose Age: 57 y.o. Sex; Male Date of : 1960 Responding Members: BENJAMIN ROGEL RCP Date/Time of Admission: 04/06/2018 12:58 PM Unit/Room: 427 4W Service: Vascular sx Attending: Quin Peter [employer] Job Titles present? Yes Attending Contacted? Yes Time Activated: [...] f/u Wednesday as appropriate. Negrita Arnold OT #[phone] * Veronica Holt RN - 04/08/2018 12:09 [...] any questions. 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 2017, suspected DVT on anticoagulation therapy with the Coumadin transferred from [facility] to [facility] on 04/06/18 for hemorrhagic shock [...] Latest Ref Range: Clear Hazy (A) Spec [place]k UA Latest Ref Range: 1.002 - 1.030 [...] can not be managed medically needing emergent ACID CONDENSER.No indication for dialysis/CVVH -Had good U.out put [...] tolerated to keep BP stable .currently on [id number] mg BID and hydralazine,labetolol IV prn #5.Ruptured [...] vascular,neurology teams Radha Hughes MD Nephrology Fellow #[phone] * Veronica Holt RN - 04/08/2018 9:47 [...] HTN, epilepsy,and prior TBI who presents to [facility] s/p LUE bleeding with PEA [...] Pt intubated in field. Pt taken to [facility], where second tourniquet applied and pt received 6U PRBC. Transferred to [facility] for further care. ?? Of [...] performed by Miguel Angel Moreno MD at [facility] MAIN OR ??? PRO DECOMPRESS FOREARM, BRACH ART EXPLOR Left 04/06/2018 FASCIOTOMY, FOREARM, WITH BRACHIAL ARTERY EXPLORATION (WRVU 8.41) performed by Lida Peter, Laureent [facility] MAIN OR ??? PRO DIRECT REPAIR RUPTURED ANEURYSM, AXILLO-BRACHIAL ARM INCIS Left 04/06/2018 @REPAIR, RUPTURED AXILLARY OR BRACHIAL ARTERY ANEURYSM BY ARM INCISION (WRVU *) performed by Lida Peter MD at [facility] OR ??? PRO EXC PAROTD, TOTAL, UNILAT RAD NECK Left 02/05/2016 @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, TOTAL, WITH UNILATERAL RADICAL NECK DISSECTION performed by Miguel Angel Moreno MD at [facility] OR ??? PRO EXC SKIN MALIG 3.1-4CM FACE, FACIAL Left 02/05/2016 EXC MALIGNANT LESION, 3.1 TO 4.0CM, FACE performed by Miguel Angel Moreno MD at [facility] MAIN OR ? ? PRO EXC SKIN MALIG >4CM TRUNK, ARM, LEG 04/19/2012 EXC MALIGNANT LESION, MICHAEL > 4.0CM, TRUNK performed by SABRINA MEDRANO at [facility] OR ??? PRO LAP, RADICAL NEPHRECTOMY Left 05/31/2017 @LAPAROSCOPY, RADICAL NEPHRECTOMY (WRVU 25.06) performed by Jax Mills MD at [facility] OR ??? PRO REBL VES GRAFT, UP EXTREM Left 04/06/2018 REPAIR BLOOD VESSEL WITH GRAFT OTHER THAN VEIN, UPPER EXTREMITY (WRVU 15.83) performed by Lida Peter MD at [facility] OR ??? PRO RELIEVE PRESSURE ON NERVE(S) Left 04/06/2018 (MSURG) CARPAL TUNNEL (WRVU 4.82) performed by Hay Sparks MD at [facility] OR ??? PRO REPAIR INTERMEDIATE S/A/T/E 2.6-7.5 CM 04/19/2012 REPAIR INTERMEDIATE WOUND, (NO HANDS OR FEET) 2.6 TO 7.5CM, UPPER EXTREMITY performed by SABRINA MEDRANO at [facility] OR ??? PRO REVISE MEDIAN N/CARPAL TUNNEL SURG Left 04/06/2018 MEDIAN NERVE DECOMPRESSION (CARPAL TUNNEL RELEASE) (WRVU 4.97) performed by Lida Peter MD [facility] MAIN OR ? ? PRO SPLIT GRFT, HEAD, FAC, HAND, FEET <100SQCM N/A 02/20/2016 SPLIT THICKNESS SKIN SPLIT GRAFT,100SQ CM OR LESS, NECK performed by Miguel Angel Moreno MD at [facility] MAIN OR ??? PRO UPPER GI ENDOSCOPY, BIOPSY N/A 05/13/2017 EGD WITH BIOPSY (WRVU 2.49) performed by Aditya Barrera MD at [facility] ENDOSCOPY ??? PRO VASCULAR SURGERY PROCEDURE UNLIST Left 11/20/2015 LIGATION\REPAIR AV FISTULA performed by Camilo Ireland MD at [facility] MAIN OR ??? PRO VASCULAR SURGERY PROCEDURE UNLIST Left 11/20/2015 EXCISION VEIN FROM HAND performed by Camilo Ireland MD at [facility] MAIN OR ??? 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 [...] epilepsy, and prior TBI who presents to [facility] s/p hemorrhagic shock and PEA [...] care per primary Vascular team. Please page #[phone] for any further questions or concerns. Procedures: [...] -none Sabrina Armas MD 04/07/2018 Trauma pager [phone] * Apple Gutierrez MD - 04/07/2018 6:59 [...] and tender to touch. Pt transferred [facility] with all belongings. Report given to oncoming RN. * Natalya Minaya MD - 04/08/2018 12:59 PM EDT Critical Care - Admission Note History of Present Illness: Christy Ambrose is a 57 y/o M w/ PMH developmental delay, epilepsy, IGA nephropathy (s/p renal transplant 2002, on tac & mycophenalate) left chefornak nephrectomy (2016), HTN who was found down on 04/06 at his home w/ bleeding from L AVF. He had PEA arrest, ROSC w/ chest compressions, 1 dose epi. Tourniquet applied to L arm in field, pt intubated and brought to [facility]. Received 6 units PRBC & transferred to [facility]. On arrival [facility] 11, taken [...] performed by Miguel Angel Moreno MD at [facility] OR ??? PRO DECOMPRESS FOREARM, BRACH ART EXPLOR Left 04/06/2018 FASCIOTOMY, FOREARM, WITH BRACHIAL ARTERY EXPLORATION (WRVU 8.41) performed by Lida Peter MDat [facility] OR ??? PRO DIRECT REPAIR RUPTURED ANEURYSM, AXILLO-BRACHIAL ARM INCIS Left 04/06/2018 @REPAIR, RUPTURED AXILLARY OR BRACHIAL ARTERY ANEURYSM BY ARM INCISION (WRVU *) performed by Lida Peter MD at [facility] OR ??? PRO EXC PAROTD, TOTAL, UNILAT RAD NECK Left 02/05/2016 @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, TOTAL, WITH UNILATERAL RADICAL NECK DISSECTION performed by Miguel Angel Moreno MD at [facility] OR ??? PRO EXC SKIN MALIG 3.1-4CM FACE, FACIAL Left 02/05/2016 EXC MALIGNANT LESION, 3.1 TO 4.0CM, FACE performed by Miguel Angel Moreno MD at [facility] OR ? ? PRO EXC SKIN MALIG >4CM TRUNK, ARM, LEG 04/19/2012 EXC MALIGNANT LESION, MICHAEL > 4.0CM, TRUNK performed by SABRINA MEDRANO at [facility] OR ??? PRO LAP, RADICAL NEPHRECTOMY Left 05/31/2017 @LAPAROSCOPY, RADICAL NEPHRECTOMY (WRVU 25.06) performed by Jax Mills MD at [facility] OR ??? PRO REBL VES GRAFT, UP EXTREM Left 04/06/2018 REPAIR BLOOD VESSEL WITH GRAFT OTHER THAN VEIN, UPPER EXTREMITY (WRVU 15.83) performed by Lida Peter MD at [facility] MAIN OR ??? PRO RELIEVE PRESSURE ON NERVE(S) Left 04/06/2018 (MSURG) CARPAL TUNNEL (WRVU 4.82) performed by Hay Sparks MD at [facility] MAIN OR ??? PRO REPAIR INTERMEDIATE S/A/T/E 2.6-7.5 CM 04/19/2012 REPAIR INTERMEDIATE WOUND, (NO HANDS OR FEET) 2.6 TO 7.5CM, UPPER EXTREMITY performed by SABRINA MEDRANO at [facility] MAIN OR ??? PRO REVISE MEDIAN N/CARPAL TUNNEL SURG Left 04/06/2018 MEDIAN NERVE DECOMPRESSION (CARPAL TUNNEL RELEASE) (WRVU 4.97) performed by Lida Peter MD [facility] MAIN OR ? ? PRO SPLIT GRFT, HEAD, FAC, HAND, FEET <100SQCM N/A 02/20/2016 SPLIT THICKNESS SKIN SPLIT GRAFT,100SQ CM OR LESS, NECK performed by Miguel Angel Moreno MD at [facility] MAIN OR ??? PRO UPPER GI ENDOSCOPY, BIOPSY N/A 05/13/2017 EGD WITH BIOPSY (WRVU 2.49) performed by Aditya Barrera MD at [facility] ENDOSCOPY ??? PRO VASCULAR SURGERY PROCEDURE UNLIST Left 11/20/2015 LIGATION\REPAIR AV FISTULA performed by Camilo Ireland MD at [facility] MAIN OR ??? PRO VASCULAR SURGERY PROCEDURE UNLIST Left 11/20/2015 EXCISION VEIN FROM HAND performed by Camilo Ireland MD at [facility] MAIN OR ??? 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 [...] 7.27* PO2ART 65* 152* 168* 228* 379* [id number] 31* 34* 39 40 36 BEART -11.8* [...] Body Fluid Culture, Aerobic & Anaerobic Fluid [[id number]] Collected: 04/06/18 1415 ? Lab Status: Preliminary result Specimen: Fluid Updated: 04/07/18 1332 ? Body Fluid Culture, Aerobic [[id number]] Collected: 04/06/18 1415 ? Lab Status: Preliminary result Specimen: Fluid Updated: 04/07/18 0804 ? Body Fluid Culture Few normal cutaneous shaina ? Gram Stain -- ? Few Neutrophils seen No microorganisms seen. ? Anaerobic Culture [[id number]] Collected: 04/06/18 1415 ? Lab Status: Preliminary [...] can not be managed medically needing emergent ACID CONDENSER.No indication for dialysis/CVVH -Had good U.out put [...] tolerated to keep BP stable .currently on [id number] mg BID and hydralazine,labetolol IV prn ?? [...] Disposition: Critical Care Red 1 Team (pager [phone]) Natalya Minaya MD 04/08/2018 * Erwin Marino MD - 04/06/2018 5:03 PM EDT Critical Care - Admission Note History of Present Illness: Christy Ambrose is a 57 y.o. male with PMH of HTN, TBI w/ epilepsy, gout, IgA nephropathy s/p donor renal transplant 2002 (on tacrolimus and cellcept) complicated by delayed graft function andrecurrent IgA nephropathy and Prograf toxicity, laparoscopic L chefornak radical nephrectomy May 2017 for papillary carcinoma, HTN, previous revision of L AVF due to massive size. Recently put on coumadin for infection of left forearm with swelling, suspected to be DVT. Presents to [facility] with hemorrhagic shock s/p PEA arrest secondary to torrential left upper extremity fistula bleeding. Per EMS the patient had a severe amount of blood loss in the bathroom and bedroom that resulted in PEA cardiac arrest at the scene. He received epinephrine, 2.5 L of normal saline with ROSC obtained. Arrived at [facility] and sedated and then received 6 units [...] performed by Miguel Angel Moreno MD at [facility] MAIN OR ??? PRO EXC PAROTD, TOTAL, UNILAT RAD NECK Left 02/05/2016 @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, TOTAL, WITH UNILATERAL RADICAL NECK DISSECTION performed by Miguel Angel Moreno MD at [facility] OR ??? PRO EXC SKIN MALIG 3.1-4CM FACE, FACIAL Left 02/05/2016 EXC MALIGNANT LESION, 3.1 TO 4.0CM, FACE performed by Miguel Angel Moreno MD at [facility] OR ? ? PRO EXC SKIN MALIG >4CM TRUNK, ARM, LEG 04/19/2012 EXC MALIGNANT LESION, MICHAEL > 4.0CM, TRUNK performed by SABRINA MEDRANO at [facility] OR ??? PRO LAP, RADICAL NEPHRECTOMY Left 05/31/2017 @LAPAROSCOPY, RADICAL NEPHRECTOMY (WRVU 25.06) performed by Jax Mills MD at [facility] MAIN OR ??? PRO REPAIR INTERMEDIATE S/A/T/E 2.6-7.5 CM 04/19/2012 REPAIR INTERMEDIATE WOUND, (NO HANDS OR FEET) 2.6 TO 7.5CM, UPPER EXTREMITY performed by SABRINA MEDRANO at [facility] MAIN OR ? ? PRO SPLIT GRFT, HEAD, FAC, HAND, FEET <100SQCM N/A 02/20/2016 SPLIT THICKNESS SKIN SPLIT GRAFT,100SQ CM OR LESS, NECK performed by Miguel Angel Moreno MD at [facility] MAIN OR ??? PRO UPPER GI ENDOSCOPY, BIOPSY N/A 05/13/2017 EGD WITH BIOPSY (WRVU 2.49) performed by Aditya Barrera MD at [facility] ENDOSCOPY ??? PRO VASCULAR SURGERY PROCEDURE UNLIST Left 11/20/2015 LIGATION\REPAIR AV FISTULA performed by Camilo Ireland MD at [facility] MAIN OR ??? PRO VASCULAR SURGERY PROCEDURE UNLIST Left 11/20/2015 EXCISION VEIN FROM HAND performed by Camilo Ireland MD at [facility] MAIN OR ??? 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 [...] mcL Appearance UA Hazy (A) Clear Spec [place] UA 1.023 1.002 - 1.030 Color UA [...] No microorganisms seen. Radiology: XR Chest and [id number] 04/06 Prominence of the superior mediastinum may [...] Ambrose Level of Activation: Trauma 9 MR#: [id number] [ ]Scene Call or [X]Hospital Transfer : [id number] CC/MECHANISM OF INJURY: 57 y.o. Male s/p [...] HTN, epilepsy,and prior TBI who presents to [facility] s/p LUE bleeding with PEA [...] Pt intubated in field. Pt taken to [facility], where second tourniquet applied and pt received 6U PRBC. Transferred to [facility] for further care. Of note, [...] performed by Miguel Angel Moreno MD at [facility] OR ??? PRO EXC PAROTD, TOTAL, UNILAT RAD NECK Left 02/05/2016 @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, TOTAL, WITH UNILATERAL RADICAL NECK DISSECTION performed by Miguel Angel Moreno MD at [facility] OR ??? PRO EXC SKIN MALIG 3.1-4CM FACE, FACIAL Left 02/05/2016 EXC MALIGNANT LESION, 3.1 TO 4.0CM, FACE performed by Miguel Angel Moreno MD at [facility] OR ? ? PRO EXC SKIN MALIG >4CM TRUNK, ARM, LEG 04/19/2012 EXC MALIGNANT LESION, MICHAEL > 4.0CM, TRUNK performed by SABRINA MEDRANO at [facility] OR ??? PRO LAP, RADICAL NEPHRECTOMY Left 05/31/2017 @LAPAROSCOPY, RADICAL NEPHRECTOMY (WRVU 25.06) performed by Jax Mills MD at [facility] MAIN OR ??? PRO REPAIR INTERMEDIATE S/A/T/E 2.6-7.5 CM 04/19/2012 REPAIR INTERMEDIATE WOUND, (NO HANDS OR FEET) 2.6 TO 7.5CM, UPPER EXTREMITY performed by SABRINA MEDRANO at [facility] MAIN OR ? ? PRO SPLIT GRFT, HEAD, FAC, HAND, FEET <100SQCM N/A 02/20/2016 SPLIT THICKNESS SKIN SPLIT GRAFT,100SQ CM OR LESS, NECK performed by Miguel Angel Moreno MD at [facility] MA[facility] OR ??? PRO UPPER GI ENDOSCOPY, BIOPSY N/A 05/13/2017 EGD WITH BIOPSY (WRVU 2.49) performed by Aditya Barrera MD at [facility] ENDOSCOPY ??? PRO VASCULAR SURGERY PROCEDURE UNLIST Left 11/20/2015 LIGATION\REPAIR AV FISTULA performed by Camilo Ireland MD at [facility] MAIN OR ??? PRO VASCULAR SURGERY PROCEDURE UNLIST Left 11/20/2015 EXCISION VEIN FROM HAND performed by Camilo Ireland MD at [facility] MAIN OR ??? 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 [...] Normal RBC Morphology Abnormal Ovalocytes 1-5 /HPF [place] Cells 1-5 /HPF Rapid Drug Screen, Urine [...] mcL Appearance UA Hazy (A) Clear Spec [place] UA 1.023 1.002 - 1.030 Color UA [...] epilepsy, and prior TBI who presents to [facility] s/p LUE bleeding with PEA [...] to the planned procedure. Hand Hygiene: The gore inserter did perform hand hygiene prior to line insertion. Catheter type: PICC Lot number: [id number] Procedure Technique: Skin was prepped with chlorhexidine. [...] vac dressing completed. Left forearm wound measures [id number] with clean, well granulated base. PANCHITO Eng [...] Reyna MD - 04/09/2018 9:03 AM EDT [facility] Department of Neurology Critical Care Prolonged EEG [...] mg 20 mg Intravenous Q4H PRN Natalya Mniaya MD 20mg at 04/08/18 1745 METHODS A 21 channel digitized electroencephalogram was performed in the Intensive Care Unit by the [facility] Clinical Neurophysiology Laboratory. The 10/20 [...] PM EDTAssociated Order(s): EEG AWAKE, ASLEEP, DROWSY [facility] Department of Neurology In Patient Routine EEG [...] tablet 50 mg 50 mg Oral Q8H [facility] Angelika Aguilera, PA 50 mg at 04/08/18 [...] channel digitized electroencephalogram was performed in the [facility] Clinical Neurophysiology Laboratory. The 10/20 international system of electrode placement was used and bipolar and referential electrode montages were recorded. In addition to EEG the patient was monitored for EKGand lateral/vertical eye movements. Video was recorded during the session. The duration of the recording was 30 minutes. EVENTS SPECIALIST'S REPORT: Performed by: AT Patient was not [...] Outcome: Ongoing (Interventions Implemented as Appropriate) 04/25/18 4936 Skin Integrity Impairment, Risk/Actual (Adult) Skin Integrity/Wound [...] briefly with patient to update him that [facility] in [place], [place] is reviewing him for possible admission this week. Pt was appreciative for this news. Pt [facility] filed for [facility]. Pt's staff nurse Lalitha mensah. I was going to call pt's brother Lucas to discuss. DISTILLATION OPERATOR Sandeep Wan had just talked with pt's brother and mother Ilda and informed me that a tentative family meeting has been set up for tomorrow at 3:00 pm. CM will be part of the meeting; will continue to follow. Padmini Ruiz RN [phone] * Plan of Care - Nza Robbins RN - 05/02/2018 2:08 AM EDT [...] none Problem: Health Knowledge, Opportunity to Enhance (Adult,NICU,Gazelle,Obstetrics,Pediatric) Goal: Knowledgeable about Health Subject/Topic Patient will demonstrate the desired outcomes by discharge/transition of care. Outcome: Ongoing (Interventions Implemented as Appropriate) 04/30/18 1903 Health Knowledge, Opportunity to Enhance (Adult,NICU,Gazelle,Obstetrics,Pediatric) Knowledgeable about Health Subject/Topic making progress toward [...] PRN PICC dressing change completed as per [facility] protocol. yes Positive pressure displacement [...] 04/30/18 1903 Health Knowledge, Opportunity to Enhance (Adult,NICU,Gazelle,Obstetrics,Pediatric) Knowledgeable about Health Subject/Topic making progress toward [...] 04/27/2018 3:19 PM EDT OFFICE OF CARE MANAGEMENT/Choir Accompanist/PROGRESS NOTE e-DH reviewed. Report received from vascular. [...] Discharge Disposition: (P) inpatient rehabilitation facility Pager: [phone] IRLANDA MUNOZ 04/27/2018 Occupational Therapy Rehabilitation Department 04/27/18 1412 Rehab Evaluation Document Type therapy note (daily note) Total Evaluation Minutes, Occupational Therapy 24 Patient Effort good Symptoms Noted During/After Treatment none General Information Patient Profile Review yes Patient/Family/Caregiver Comments/Observations I can belt picker a can of soup with my [...] Assessment/Treatment Assistive Device (Bed Mobility) bed rails [id number]-[id number] Garvin (Bed Mobility) conditional independence Impairments (Bed Mobility) flexibility decreased;ROM (range of motion) decreased;strength decreased Comment (Bed Mobility) HOB slightyly elevated; vc's to adjust HOB Transfer Assessment/Treatment Chair-Bed Garvin (Transfers) contact guard assist Garvin (Sit-Stand Transfers) contact guard assist Garvin (Stand-Sit Transfers) contact guard assist Garvin (Toilet Transfers) (pt continues to report ambulating to bathrom for toileting) Impairments (Transfers) balance impaired;ROM (range of motion) decreased;strength decreased Gait Assessment/Treatment Garvin (Gait) contact guard assist Assistive Device (Gait) gait belt Distance in Feet (Gait) 750' Safety Issues (Gait) balance decreased during turns;step length decreased Impairments (Gait) balance impaired;coordination impaired Comment (Gait) mild ataxia; no lob noted; assist to carry wound vac Lower Body Dressing Assessment/Training Position (LB Dressing) standing Garvin Level (LB Dressing) contact guard assist Impairments [...] good balance Sitting Balance: Dynamic fair balance Xvu-[id number]-Syfkq Balance fair balance Standing Balance: Static fair [...] I have met with the patient/sales representative advertising to discuss discharge planning needs. I have provided the [facility], Office of Care Management letter from the Technical Communicator pertaining to rehab referrals. I have also provided a letter describing our affiliations within the [facility] and educated them about their right to choose where referrals are placed. ?? I reviewed the different levels of rehab including SNF, swing, acute and LTAC with the patient/sales representative advertising. ?? The patient/sales representative advertising has been provided a list of facilities within their preferred geographic area. ?? I have requested that the patient/sales representative advertising provide at least three choices for referral. ?? The patient/sales representative advertising have requested referrals to: ?? 1. [facility] ?? 2. [facility] ?? 3. [facility]. View ?? Expected date of discharge: 3-5 days Note routed to Biomedical Engineering Aide who will communicate referrals to facilities and provide any required information. * Plan of Care - Helen Denny RN - 04/27/2018 10:22 AM EDT Problem: Health Knowledge, Opportunity to Enhance (Adult,NICU,,Obstetrics,Pediatric) Goal: Knowledgeable about Health Subject/Topic Patient will demonstrate the desired outcomes by discharge/transition of care. Peripherally Inserted Central Catheter (PICC) Teaching Sheet Peripherally inserted central catheters ([id number]-[id number]) (PICC) are used when you need IV [...] midline catheter? PICC lines are used for buttermilk drier operator treatments. PICC lines may be used [...] can be set up via the nurse Choir Accompanist to help you. What are possible complications [...] Vascular Access Device Selection, Insertion, and Management, [employer] 04/15. A Review of the Efficacy, Safety, Use, and Administration of [employer], [employer] 2005 * Plan of Care - [...] agency transportation Goal: Interdisciplinary Rounds/Family Conf 04/25/18 0486 Interdisciplinary Rounds/Family Conf Participants nursing;patient Problem: Seizure [...] Sparks MD - 04/26/2018 12:40 PM EDT [facility] Operative Note Patient Name: Christy Ambrose : [id number] MR#: [id number] Case Date: 04/26/2018 Surgeon: Surgeon(s) and Role: [...] Aditi Mccollum MD Plastic Surgery Resident, pager [phone] Plastic surgery team pager: [phone] Attestation: Case Date: 04/26/2018 I was present and I participated during the entire procedure (does not need to include opening and closing). HAY SPARKS MD 04/27/2018 * Brief Op Note - Aditi Mccollum MD - 04/26/2018 12:36 PM EDT Brief Operative Note Patient Name: Christy Ambrose : [id number] MR#: [id number] Case Date: 04/26/2018 Surgeon: Surgeon(s) and Role: [...] Outcome: Ongoing (Interventions Implemented as Appropriate) 04/25/18 2146 Skin Integrity Impairment, Risk/Actual (Adult) Skin Integrity/Wound [...] or Care? [facility]. What Questions Do You Have About Your [...] performed by Miguel Angel Moreno MD at [facility] MAIN OR ??? PRO DECOMPRESS FOREARM, BRACH ART EXPLOR Left 04/06/2018 FASCIOTOMY, FOREARM, WITH BRACHIAL ARTERY EXPLORATION (WRVU 8.41) performed by Lida Peter MDat [facility] MAIN OR ??? PRO DIRECT REPAIR RUPTURED ANEURYSM, AXILLO-BRACHIAL ARM INCIS Left 04/06/2018 @REPAIR, RUPTURED AXILLARY OR BRACHIAL ARTERY ANEURYSM BY ARM INCISION (WRVU *) performed by Lida Peter MD at [facility] MAIN OR ??? PRO EXC PAROTD, TOTAL, UNILAT RAD NECK Left 02/05/2016 @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, TOTAL, WITH UNILATERAL RADICAL NECK DISSECTION performed by Miguel Angel Moreno MD at [facility] OR ??? PRO EXC SKIN MALIG 3.1-4CM FACE, FACIAL Left 02/05/2016 EXC MALIGNANT LESION, 3.1 TO 4.0CM, FACE performed by Miguel Angel Moreno MD at [facility] OR ? ? PRO EXC SKIN MALIG >4CM TRUNK, ARM, LEG 04/19/2012 EXC MALIGNANT LESION, MICHAEL > 4.0CM, TRUNK performed by SABRINA MEDRANO at [facility] OR ??? PRO LAP, RADICAL NEPHRECTOMY Left 05/31/2017 @LAPAROSCOPY, RADICAL NEPHRECTOMY (WRVU 25.06) performed by Jax Mills MD at [facility] OR ??? PRO LIGATN ANGIOACCESS AV FISTULA Left 04/19/2018 LIGATION OR BANDING OF HEMODIALYSIS FISTULA OR GRAFT UPPER EXTREMITY (WRVU 6.25) performed by Odalis Elias MD at [facility] MAIN OR ??? PRO NEGATIVE PRESSURE WOUND THERAPY, LESS THAN OR EQUAL TO 50 SQCM Left 04/19/2018 DRESSING CHANGE (VAC ASSISTED) UP TO 50SQ.CM (WRVU 0.55) performed by Odalis Elias MD [facility] OR ??? PRO REBL VES GRAFT, UP EXTREM Left 04/06/2018 REPAIR BLOOD VESSEL WITH GRAFT OTHER THAN VEIN, UPPER EXTREMITY (WRVU 15.83) performed by Lida Peter MD at [facility] OR ??? PRO RELIEVE PRESSURE ON NERVE(S) Left 04/06/2018 (MSURG) CARPAL TUNNEL (WRVU 4.82) performed by Hay Sparks MD at [facility] OR ??? PRO REPAIR INTERMEDIATE S/A/T/E 2.6-7.5 CM 04/19/2012 REPAIR INTERMEDIATE WOUND, (NO HANDS OR FEET) 2.6 TO 7.5CM, UPPER EXTREMITY performed by SABRINA MEDRANO at [facility] OR ? ? PRO REPAIR INTERMEDIATE S/A/T/E > 30.0 CM Left 04/14/2018 REPAIR INTERMEDIATE WOUND, (NO HANDS OR FEET) >30.0CM, UPPER EXTREMITY (WRVU 5) performed by Yimi Easton MD at [facility] MAIN OR ??? PRO REVISE MEDIAN N/CARPAL TUNNEL SURG Left 04/06/2018 MEDIAN NERVE DECOMPRESSION (CARPAL TUNNEL RELEASE) (WRVU 4.97) performed by Lida Peter MD [facility] MAIN OR ? ? PRO SPLIT GRFT, HEAD, FAC, HAND, FEET <100SQCM N/A 02/20/2016 SPLIT THICKNESS SKIN SPLIT GRAFT,100SQ CM OR LESS, NECK performed by Miguel Angel Moreno MD at [facility] MAIN OR ??? PRO UPPER GI ENDOSCOPY, BIOPSY N/A 05/13/2017 EGD WITH BIOPSY (WRVU 2.49) performed by Aditya Barrera MD at [facility] ENDOSCOPY ??? PRO VASCULAR SURGERY PROCEDURE UNLIST Left 11/20/2015 LIGATION\REPAIR AV FISTULA performed by Camilo Ireland MD at [facility] MAIN OR ??? PRO VASCULAR SURGERY PROCEDURE UNLIST Left 11/20/2015 EXCISION VEIN FROM HAND performed by Camilo Ireland MD at [facility] MAIN OR ??? 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 [...] 0.01 0.00 - 0.04 x10(3)/mcL ASSESSMENT: Christy Amrbose is a 57 y.o. y/o male h/o [...] as pending/add-on, please make patient NPO at [place] on Wednesday. Attending: Plan discussed and agree [...] management. Pt demonstrating increased ambulation w/ staff assistant and participating in functional ADL tasks. Pt will benefit from ongoing therapeutic interventions to achieve pt's and therapy goals. Please refer to associated flowsheet data listed below for treatment session details. Staff Recommendations: Encourage OOB activity and participation in all self care tasks Anticipated Discharge Disposition: (P) inpatient rehabilitation facility Pager: [phone] IRLANDA MUNOZ 04/22/2018 Occupational Therapy Rehabilitation Department [...] Level 0 Pain Goal 0 Transfer Assessment/Treatment Garvin (Sit-Stand Transfers) supervision required Garvin (Toilet Transfers) supervision required Assistive Device (Toilet Transfers) bracing Impairments (Transfers) strength decreased;balance impaired Comment (Transfers) assist for wound vac during toilet transfer; slightly impulsive Gait Assessment/Treatment Garvin (Gait) supervision required Distance in Feet (Gait) 25 Impairments (Gait) balance impaired Comment (Gait) recliner <> bathroom ; witnessed pt ambulating unit w/ staff assistant ~300 Bathing Assessment/Training Comment (Bathing) pt had just completed bathing task prior to this writers arrival; pt reported assisting w/ shower cap and bathing ; Lower Body Dressing Assessment/Training Position (LB Dressing) sitting Garvin Level (LB Dressing) verbal cues required;nonverbal cues [...] or Care? I am having surgery in [facility]. What Questions Do You Have About [...] Home with assist [facility] PTA Pager: [phone] Inpatient Physical Therapy Timed Up & Go [...] Assessment/Treatment Assistive Device (Bed Mobility) bed rails Kyhrhp-je-Ppd Garvin (Bed Mobility) conditional independence Comment (Bed Mobility) HOB flat, extra time required Faa-bx-Kqozkn Garvin (Bed Mobility) conditional independence Transfer Assessment/Treatment Garvin (Sit-Stand Transfers) supervision required Garvin (Stand-Sit Transfers) supervision required Msu-Rbiqv-Gku Assistive Device (Transfers) (no device) Maintain Weight Bearing Status (Transfers) cues to maintain weight bearing status Safety Issues (Transfers) balance decreased during turns Impairments (Transfers) balance impaired;strength decreased Comment (Transfers) Initial cues to not use L UE, impulsive, pt held wound vac with R UE Gait Assessment/Treatment Garvin (Gait) supervision required Assistive Device (Gait) (no [...] to sit/sit to sidelying Bed Mobility Goal, Garvin Level independent Bed Mobility Goal, Outcome Achieved goal ongoing Gait Training Goal Gait Training Goal, Date Established 04/11/18 Gait Training Goal, Time to Achieve 2 wks Gait Training Goal, Garvin Level independent Gait Training Goal, Assist Device other (see comments) (LRD ) Gait Training Goal, Distance to Achieve 150 ft Gait Training Goal, Outcome goal ongoing Transfer Training Goal Transfer Training Goal, Date Established 04/11/18 Transfer Training Goal, Time to Achieve 2 wks Transfer Training Goal, Activity Type all transfers Transfer Train Goal, Garvin Level independent Transfer Training Goal, Assist Device [...] Discharge Disposition: (P) inpatient rehabilitation facility Pager: [phone] IRLANDA MUNOZ 04/20/2018 Occupational Therapy Rehabilitation Department [...] Level 0 Pain Goal 0 Transfer Assessment/Treatment Garvin (Sit-Stand Transfers) contact guard assist Garvin (Stand-Sit Transfers) contact guard assist Zks-Lvrky-Hyn Assistive Device (Transfers) gait belt Safety Issues (Transfers) balance decreased during turns Impairments (Transfers) balance impaired;strength decreased Comment (Transfers) slightly impulsive at times; cues for safety awareness Gait Assessment/Treatment Garvin (Gait) verbal cues required;nonverbal cues required (demo/gesture);contact guard assist Assistive Device (Gait) gait belt Distance in Feet (Gait) 300' Safety Issues (Gait) balance decreased during turns;step length decreased Impairments (Gait) balance impaired;strength decreased Comment (Gait) pt required mulit modal cues for directions; slightly impulsive; Lower Body Dressing Assessment/Training Position (LB Dressing) sitting;standing Garvin Level (LB Dressing) set up required;verbal cues [...] good balance Sitting Balance: Dynamic fair balance Peb-jb-Llpfd Balance fair balance Standing Balance: Static fair [...] DVT on coumadin who was transferred to [facility] for hemorrhagic shock with PEA arrest secondary to fistulableeding. He is a limited historian- history taken from chart- He had had some leaking from his LUEAVF site and was found by his mom in a pool of blood, pulseless. He was transfused 6 units of prbcsand transferred to [facility]. He had previous LAVF revision [...] father Social History and Habits: Lives [place] his mom. Non-smoker (quit 2000). No [...] Danielle Peoples DO Infectious Disease Fellow Pager [phone] Associated attestation - Katarzyna Guevara MD - [...] Junior MD - 04/19/2018 10:43 AM EDT [facility] Operative Note Patient Name: Christy Ambrose : [id number] MR#: [id number] Case Date: 04/19/2018 Surgeon: Surgeon(s) and Role: [...] Junior MD - 04/19/2018 10:25 AM EDT [facility] Operative Note Patient Name: Christy Ambrose : [id number] MR#: [id number] Case Date: 04/19/2018 Surgeon: Surgeon(s) and Role: [...] 04/18/2018 2:40 PM EDT OFFICE OF CARE MANAGEMENT/Choir Accompanist/PROGRESS NOTE e-DH reviewed. Report received from vascular [...] wound base. --Had AVF ultrasound today in [facility] lab to assess AVF --NPO at midnight [...] 04/15/2018 12:36 PM EDT OFFICE OF CARE MANAGEMENT/Choir Accompanist/PROGRESS NOTE e-DH reviewed. Report received from vascular [...] Discharge Disposition: (P) inpatient rehabilitation facility Pager: [phone] IRLANDA MUNOZ 04/15/2018 Occupational Therapy Rehabilitation Department [...] 0 Pain Goal 0 Transfer Assessment/Treatment Bed-Chair Garvin (Transfers) contact guard assist Nfw-Rwbkr-Ukr Assistive Device (Transfers) (IV pole for support ) Garvin (Sit-Stand Transfers) set up required;verbal cues required;contact guard assist Garvin (Stand-Sit Transfers) verbal cues required;contact guard assist Fcl-Emlvm-Apq Assistive Device (Transfers) (IV pole ) Safety Issues (Transfers) sequencing ability decreased;step length decreased;weight-shifting ability decreased Impairments (Transfers) balance impaired;strength decreased Comment (Transfers) cues for safe hand placement and task initation Gait Assessment/Treatment Garvin (Gait) verbal cues required;contact guard assist Assistive [...] Body Dressing Assessment/Training Position (UB Dressing) sitting Garvin Level (UB Dressing) contact guard assist Comment (UB Dressing) paco armstrong Grooming Assessment/Training Position (Grooming) sitting Garvin Level (Grooming) set up required;verbal cues required;contact [...] Please contact Violetta Deng RN on pager [phone] or the wound care team at [phone] or pager [phone] with skin and wound care concerns or [...] for specific details, POC and goals. Recommendations RN EMBEDDED Diet Recommendation: regular solid, thin liquids Therapy Frequency: other (see comments) (D/C from speech intervention.) MIGUEL ANGEL PIERCE, YOUSIF Inpatient Speech Pathologist Pager: [phone] 04/15/18 1011 Rehab Evaluation Document Type therapy [...] Dysphagia Goal, Outcome goal met Clinical Impression RN EMBEDDED Swallowing Diagnosis other (see comments) (Functionally appearing oropharyngeal swallow) Rehab Potential/Prognosis, Swallowing good, to achieve stated therapy goals Therapy Frequency other (see comments) (D/C from speech intervention.) RN EMBEDDED Diet Recommendation regular solid;thin liquids * Plan [...] inpatient rehabilitation facility [facility] PTA Pager: [phone] Inpatient Physical Therapy 04/15/18 0923 Rehab Evaluation Document Type therapy note [...] cook, clean independently. 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 pt usually ambulates w/o AD, but occasionally will walk w/ cane Pain Scale/Rating Pain Assessment Scale Word (verbal rating pain scale) Pain Level 0 Bed Mobility Assessment/Treatment Assistive Device (Bed Mobility) bed rails Akfzys-za-Yzi Garvin (Bed Mobility) supervision required Comment (Bed Mobility) HOB elevated, extra time required Safety Issues (Bed Mobility) decreased use of arms for pushing/pulling Impairments (Bed Mobility) strength decreased Transfer Assessment/Treatment Garvin (Sit-Stand Transfers) contact guard assist Garvin (Stand-Sit Transfers) contact guard assist Wdb-Lcldk-Xju Assistive Device (Transfers) (IV pole) Safety Issues (Transfers) balance decreased during turns;step length decreased;loses balance backward Impairments (Transfers) balance impaired;strength decreased Comment (Transfers) Initially falling back onto bed with standing or marching in place, able to steady himself with the IV pole Gait Assessment/Treatment Garvin (Gait) contact guard assist Assistive Device (Gait) [...] to sit/sit to sidelying Bed Mobility Goal, Garvin Level independent Bed Mobility Goal, Outcome Achieved goal ongoing Gait Training Goal Gait Training Goal, Date Established 04/11/18 Gait Training Goal, Time to Achieve 2 wks Gait Training Goal, Garvin Level independent Gait Training Goal, Assist Device other (see comments) (LRD ) Gait Training Goal, Distance to Achieve 150 ft Gait Training Goal, Outcome goal ongoing Transfer Training Goal Transfer Training Goal, Date Established 04/11/18 Transfer Training Goal, Time to Achieve 2 wks Transfer Training Goal, Activity Type all transfers Transfer Train Goal, Garvin Level independent Transfer Training Goal, Assist Device [...] Easton MD - 04/14/2018 8:19 AM EDT [facility] Operative Note Patient Name: Christy Ambrose : [id number] MR#: [id number] Case Date: 04/14/2018 Surgeon: Surgeon(s) and Role: [...] he was found down. [facility]ets [...] I have met with the patient/sales representative advertising to discuss discharge planning needs. I have provided the [facility], Office of Care Management letter from the Technical Communicator pertaining to rehab referrals. I have also provided a letter describing our affiliations within the [facility] and educated them about their right to choose where referrals are placed. ?? I reviewed the different levels of rehab including SNF, swing, acute and LTAC with the patient/sales representative advertising. ?? The patient/sales representative advertising has been provided a list of facilities within their preferred geographic area. ?? I have requested that the patient/sales representative advertising provide at least three choices for referral. ?? The patient/sales representative advertising have requested referrals to: ?? 1. [facility]. ?? 2. [facility] ?? 3. ?? Expected date of discharge: next 24- 48 hours Note routed to Biomedical Engineering Aide who will communicate referrals to facilities and [...] epilepsy, and prior TBI who presents to [facility] s/p LUE bleeding with PEA [...] Pt intubated in field. Pt taken to [facility], where second tourniquet applied and pt received 6U PRBC. Transferred to [facility]. Per H and P Dr. Burkett. Past Medical History: Diagnosis Date ??? BP (high blood pressure) ??? DVT (deep venous thrombosis) ??? Gout ??? Hypertension ??? Kidney problem ??? Pneumonia ??? TBI (traumatic brain injury) 1980 Hospitalizations Within the Past 30 Days: [facility] Anticipated Length Of Stay (If known): Expected Length of Hospitalization: 5-7 days Current Decision-Making Capacity: Alert but confused. Awakes when I speak but confused when answering. Advance Care Planning: Adv. Directives are from 2010, pt's POA is brother Lucas Ambrose who resides in [facility], pat's 86 year old mother [...] Insurance: N/A Prescription Coverage: yes Preferred Pharmacy: [facility] in [place], [place]. Primary Care Provider: Carroll Garcia DO [phone] Patient/Caregiver Goals of Treatment: to go to [...] will follow up with Transplant Nephrology/[facility] today Plan: to go to acute rehab at discharge. A member of the Care Management team will continue to monitor progress, follow for continuity of care and assist with transition of care planning. [place] RN Pager: [phone] * Care Management - [place] RN - 04/12/2018 2:33 PM EDT Based on discussions with the multi-disciplinary healthcare team, the patient would benefit from acute inpatient rehab. level of care at discharge. ?? I have met with the patient/sales representative advertising to discuss discharge planning needs. I have provided the [facility], Office of Care Management letter from the Technical Communicator pertaining to rehab referrals. I have also provided a letter describing our affiliations within the [facility] and educated them about their right to choose where referrals are placed. ?? I reviewed the different levels of rehab including SNF, swing, acute and LTAC with the patient/sales representative advertising. ?? The patient/sales representative advertising has been provided a list of facilities within their preferred geographic area. ?? I have requested that the patient/sales representative advertising provide at least three choices for referral. ?? The patient/sales representative advertising have requested referrals to: ?? 1. [facility] [place], [place] ?? 2. [facility] ?? 3. [facility]. ?? Expected date of discharge: next 24-72 hours Note routed to Biomedical Engineering Aide who will communicate referrals to facilities and provide any required information. * Consult Note - Ashlie Willis RPH - 04/12/2018 10:24 AM EDT Clinical Pharmacist Note - Renal Dose Adjustment for Antimicrobials Christy Ambrose (A# [id number]) is being treated with the following antimicrobial [...] Anticipated Discharge Disposition: inpatient rehabilitation facility Pager: [phone] RAFAELA ALONZO OT 04/11/2018 Occupational Therapy Rehabilitation [...] Comment Patient lives with his mother at [facility]. Ramp to enter, then elevator to 5th floor. Once inside, single floor. Tub shower, no chair. Regular bed Functional Level Prior Prior Functional Level Comment Reports independence with all ADL/IADL tasks. Drives. Works at the [employer]. Only ambulates with a cane on the [...] Assessment/Treatment Assistive Device (Bed Mobility) bed rails Detwhr-kr-Eph Garvin (Bed Mobility) minimum assist (75% patient effort) Comment (Bed Mobility) HOB elevated Transfer Assessment/Treatment Garvin (Sit-Stand Transfers) moderate assist (50% patient effort);2 person assist required;verbal cues required Garvin (Stand-Sit Transfers) moderate assist (50% patient effort);2 person assist required;verbal cues required Czm-Zwjbn-Jjj Assistive Device (Transfers) (Initally stood w/o any AD. Poor balance ) Gait Assessment/Treatment Garvin (Gait) moderate assist (50% patient effort);2 person [...] Body Dressing Assessment/Training Position (UB Dressing) sitting Garvin Level (UB Dressing) minimum assist (75% patient effort) Lower Body Dressing Assessment/Training Position (LB Dressing) sitting Garvin Level (LB Dressing) minimum assist (75% patient [...] were not included. Infiltration/Extravasation Scale Christy Ambrose [id number] IC18/IC18-A Infiltration appearance: Infiltration harm % for [...] to comfort. MD at the Pt's bedside. MATCH UP PERSON CARING FOR THIS PATIENT WILL CONTINUE TO [...] chair to 2 hour intervals. Use a KeyLemon chair cushion beneath patient at all times while in the chair. Reinforce teaching to shift weight every 15 minutes while in the chair. Following hospital standard for pressure ulcer prevention and skin care. Refer to adult/pediatric pressure ulcer prevention job aid in the clinical policy library. Wound care will follow weekly. Discussed plan with: RN: Elva Please contact MEAGHAN HOOD RN on pager [phone] or the wound care team at [phone] or pager [phone] with skin and wound care concerns or [...] Therapy Frequency: 2-3 times/wk MIGUEL ANGEL PIERCE, RN EMBEDDED Inpatient Speech Pathologist Pager: [phone] 04/08/18 2820 Rehab Evaluation Document Type evaluation Total Evaluation [...] patient (RN) Speech Language Pathology Goal Types RN EMBEDDED Goal Types Dysphagia Goal (Group) Dysphagia Goal Dysphagia Goal, Date Established 04/08/18 Dysphagia Goal, Time to Achieve by discharge Oral Nutritional Level Goal safely tolerates/maintains adequate oral nutrition;no signs/symptoms ofaspiration present Clinical Impression RN EMBEDDED Swallowing Diagnosis oral dysfunction;other (see comments) (Functionally appearing pharyngeal dysphagia. ) Rehab Potential/Prognosis, Swallowing good, to achieve stated therapy goals Therapy Frequency 2-3 times/wk RN EMBEDDED Diet Recommendation puree;thin liquids * Plan of [...] dose epi. Intubated in field. Arrived at [facility] ED intubated. Received 6 units pRBC. Transferred to [facility] and went to OR with [...] performed by Miguel Angel Moreno MD at [facility] MAIN OR ??? PRO DECOMPRESS FOREARM, BRACH ART EXPLOR Left 04/06/2018 FASCIOTOMY, FOREARM, WITH BRACHIAL ARTERY EXPLORATION (WRVU 8.41) performed by Lida Peter MDat [facility] MAIN OR ??? PRO DIRECT REPAIR RUPTURED ANEURYSM, AXILLO-BRACHIAL ARM INCIS Left 04/06/2018 @REPAIR, RUPTURED AXILLARY OR BRACHIAL ARTERY ANEURYSM BY ARM INCISION (WRVU *) performed by Lida Peter MD at [facility] MAIN OR ??? PRO EXC PAROTD, TOTAL, UNILAT RAD NECK Left 02/05/2016 @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, TOTAL, WITH UNILATERAL RADICAL NECK DISSECTION performed by Miguel Angel Moreno MD at [facility] MAIN OR ??? PRO EXC SKIN MALIG 3.1-4CM FACE, FACIAL Left 02/05/2016 EXC MALIGNANT LESION, 3.1 TO 4.0CM, FACE performed by Miguel Angel Moreno MD at [facility] MAIN OR ? ? PRO EXC SKIN MALIG >4CM TRUNK, ARM, LEG 04/19/2012 EXC MALIGNANT LESION, MICHAEL > 4.0CM, TRUNK performed by SABRINA MEDRANO at [facility] OR ??? PRO LAP, RADICAL NEPHRECTOMY Left 05/31/2017 @LAPAROSCOPY, RADICAL NEPHRECTOMY (WRVU 25.06) performed by Jax Mills MD at [facility] MAIN OR ??? PRO REBL VES GRAFT, UP EXTREM Left 04/06/2018 REPAIR BLOOD VESSEL WITH GRAFT OTHER THAN VEIN, UPPER EXTREMITY (WRVU 15.83) performed by Lida Peter MD at [facility] MAIN OR ??? PRO RELIEVE PRESSURE ON NERVE(S) Left 04/06/2018 (MSURG) CARPAL TUNNEL (WRVU 4.82) performed by Hay Sparks MD at [facility] OR ??? PRO REPAIR INTERMEDIATE S/A/T/E 2.6-7.5 CM 04/19/2012 REPAIR INTERMEDIATE WOUND, (NO HANDS OR FEET) 2.6 TO 7.5CM, UPPER EXTREMITY performed by SABRINA MEDRANO at [facility] MAIN OR ??? PRO REVISE MEDIAN N/CARPAL TUNNEL SURG Left 04/06/2018 MEDIAN NERVE DECOMPRESSION (CARPAL TUNNEL RELEASE) (WRVU 4.97) performed by Lida Peter MD [facility] OR ? ? PRO SPLIT GRFT, HEAD, FAC, HAND, FEET <100SQCM N/A 02/20/2016 SPLIT THICKNESS SKIN SPLIT GRAFT,100SQ CM OR LESS, NECK performed by Miguel Angel Moreno MD at [facility] MAIN OR ??? PRO UPPER GI ENDOSCOPY, BIOPSY N/A 05/13/2017 EGD WITH BIOPSY (WRVU 2.49) performed by Aditya Barrera MD at [facility] ENDOSCOPY ??? PRO VASCULAR SURGERY PROCEDURE UNLIST Left 11/20/2015 LIGATION\REPAIR AV FISTULA performed by Camilo Ireland MD at [facility] MAIN OR ??? PRO VASCULAR SURGERY PROCEDURE UNLIST Left 11/20/2015 EXCISION VEIN FROM HAND performed by Camilo Ireland MD at [facility] MAIN OR ??? 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 [...] extension 5/5 R, Elbow flexion 5/5 R Wet Room Supervisor LE: 5/5 R, 5/5 L Hip flexion [...] 04/07/2018 Neurology resident, PGY-3 Vascular Neurology Pager [phone] Standard [facility] Swallow Screen: This screen is [...] diet as medical provider deems appropriate. Consider RN EMBEDDED consult for full evaluation and diet recommendations. 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 Apparently patient was found at his home unresponsive and was pulseless requiring several rounds of chest compressions,epinephrine and IV fluid bolus with a return of spontaneous circulation.Intubated in the field and taken to [facility] received 6 units of the PRBCs,2 FFPs for hemoglobin of 4 and required 2 tourniquets for his AV fistula leaking. Transferred [place] [facility] and was taken to OR [...] performed by Miguel Angel Moreno MD at [facility] MAIN OR ??? PRO EXC PAROTD, TOTAL, UNILAT RAD NECK Left 02/05/2016 @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, TOTAL, WITH UNILATERAL RADICAL NECK DISSECTION performed by Miguel Angel Moreno MD at [facility] MAIN OR ??? PRO EXC SKIN MALIG 3.1-4CM FACE, FACIAL Left 02/05/2016 EXC MALIGNANT LESION, 3.1 TO 4.0CM, FACE performed by Miguel Angel Moreno MD at [facility] OR ? ? PRO EXC SKIN MALIG >4CM TRUNK, ARM, LEG 04/19/2012 EXC MALIGNANT LESION, MICHAEL > 4.0CM, TRUNK performed by SABRINA MEDRANO at [facility] OR ??? PRO LAP, RADICAL NEPHRECTOMY Left 05/31/2017 @LAPAROSCOPY, RADICAL NEPHRECTOMY (WRVU 25.06) performed by Jax Mills MD at [facility] MAIN OR ??? PRO REPAIR INTERMEDIATE S/A/T/E 2.6-7.5 CM 04/19/2012 REPAIR INTERMEDIATE WOUND, (NO HANDS OR FEET) 2.6 TO 7.5CM, UPPER EXTREMITY performed by SABRINA MEDRANO at [facility] MAIN OR ? ? PRO SPLIT GRFT, HEAD, FAC, HAND, FEET <100SQCM N/A 02/20/2016 SPLIT THICKNESS SKIN SPLIT GRAFT,100SQ CM OR LESS, NECK performed by Miguel Angel Moreno MD at [facility] MAIN OR ??? PRO UPPER GI ENDOSCOPY, BIOPSY N/A 05/13/2017 EGD WITH BIOPSY (WRVU 2.49) performed by Aditya Barrera MD at [facility] ENDOSCOPY ??? PRO VASCULAR SURGERY PROCEDURE UNLIST Left 11/20/2015 LIGATION\REPAIR AV FISTULA performed by Camilo Ireland MD at [facility] MAIN OR ??? PRO VASCULAR SURGERY PROCEDURE UNLIST Left 11/20/2015 EXCISION VEIN FROM HAND performed by Camilo Ireland MD at [facility] MAIN OR ??? US RENAL TRANSPLANT BIOPSY [...] Latest Ref Range: Clear Hazy (A) Spec [place] [employer] UA Latest Ref Range: 1.002 - 1.030 [...] w/ Dr.Chobanian Radha Hughes MD Nephrology Fellow #[id number] * Op Note - Bhargavi Junior MD - 04/07/2018 7:56 AM EDT [facility] Operative Note Patient Name: Christy Ambrose : [id number] MR#: [id number] Case Date: 04/06/2018 Surgeon: Surgeon(s) and Role: [...] details pertinent to this patient.) HPI/Surgical Indications: Chrsity Ambrose is a 57 y.o. male with [...] he was found down. He presented to [facility] in hemorrhagic shock with 2 [...] Implant Name Type Inv. Item Serial No. Car Examiner Lot No. LRB No. Used Action PATCH,BIOL,XENOSURE,.[id number] ([id number]) - [id number] IMPLANTS PATCH,BIOL,XENOSURE,.8X8CM ([id number]) 0 [facility] [id number] Implanted Infection Bundle used? No, ancef [...] Operative Note Patient Name: Christy Ambrose : [id number] MR#: [id number] Case Date: 04/06/2018 Surgeon: Surgeon(s) and Role: Panel 1: * Lida Peter MD - Primary * Bhargavi Jnuior MD - Fellow * Kurt Mullins MD [...] Sparks MD - 04/06/2018 4:00 PM EDT [facility] Operative Note Patient Name: Christy Ambrose : [id number] MR#: [id number] Case Date: 04/06/2018 Surgeon: Surgeon(s) and Role: [...] 04/17/2018 9:07 AM EDT TYPE AND SCREEN ([facility]) STAT 04/17/2018 9:07 AM EDT HEMOGRAM Routine [...] Routine 04/07/2018 5:56 AM EDT CARDIAC ENZYMES ([facility]) Routine 04/07/2018 5:55 AM EDT [...] IMPLANTABLE DEVICES SCAN 04/06/2018 12:00 AM EDT 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 SCAN 04/06/2018 12:00 AM EDT FILM LIBRARY STORAGE ONLY CT HEAD AND SPINE STAT 04/06/2018 12:00 AM EDT documented in this encounter Results * (ABNORMAL) Basic Metabolic Panel (non-fasting) (05/04/2018 3:00 AM EDT) Glucose 100 65 - 199 mg/dL [facility] Comment:Diabetes: >=200 mg/d L plus symptoms Blood Urea Nitrogen 40(H) 10 - 20 mg/dL [facility] Creatinine 3.05(H) 0.80 - 1.50 mg/dL [facility] Sodium 131(L) 135 - 145 mmol/L [facility] Potassium 4.1 3.5 - 5.0 mmol/L [facility] Comment: Please note: ??Patients with WBC >100,000 may have falsely elevated Potassium levels. ??For accurate Potassium quantification in these patients send serum separator tube (gold top) for subsequent determinations. ??Contact the Clinical Chemistry Laboratory if there are any questions. Chloride 99 98 - 107 mmol/L [facility] Carbon Dioxide 19(L) 22 - 31 mmol/L [facility] Anion Gap 13 5 - 15 mmol/L [facility] Calcium 8.0(L) 8.5 - 10.5 mg/dL [facility] Est Glomerular Filtration Rate 22(L) >=60 mL/min/1. 73 m?? [facility] Comment: The eGFR was calculated using the CKD-EPI equation. As with all creatinine based estimates of kidney function, eGFR values calculated with the CKD-EPI equation are not accurate in patients with acute kidney failure, extremes of body mass or the acutely ill. [email or web address] eGFR 25(L) >=60 mL/min/1. 73 m?? [facility] Comment: The eGFR was calculated using the CKD-EPI equation. As with all creatinine based estimates of kidney function, eGFR values calculated with the CKD-EPI equation are not accurate in patients with acute kidney failure, extremes of body mass or the acutely ill. [email or web address] Blood specimen (specimen) 05/04/2018 3:00 AM EDT 05/04/2018 3:08 AM EDT Narrative Resulting Agency Comment Spec In Lab Hay Sparks MD CHEMISTRY ORDERABLES Performing Organization Address [facility] Co de Phone Number [facility] [place] [address] * Vancomycin, trough (05/03/2018 6:40 PM EDT) Vancomycin, Trough 14.2 mg/L [facility] Comment: Therapeutic range for complicated [...] CHEMISTRY ORDERABLES Performing Organization Address [facility] Co de Phone Number [facility] [place] [address] * Differential, Automated (05/03/2018 3:06 AM EDT) Neutrophil % 60.8 % [facility] Neutrophil Absolute 3.01 1.70 - 6.10 x10(3)/[facility] Lymph % 19.8 % [facility] Lymphocytes Abs 1.0 0.9 - 3.2 x10(3)/[facility] Monocyte % 10.7 % [facility] Monocyte Abs 0.5 0.3 - 0.9 x10(3)/[facility] Eos % 8.1 % [facility] Eosinophils Abs 0.4 0.0 - 0.4 x10(3)/[facility] Basophil % 0.4 % [facility] Baso Absolute 0.0 0.0 - 0.1 x10(3)/[facility] Immature Gran % 0.20 % [facility] Comment: Immature granulocytes(IG's)percentage and absolute count will include metamyelocytes, myelocytes, and promyelocytes. Blood smears from CBCs yielding IG's will be scanned manually for concordance. If this scan disagrees with the automated IG or if promyelocytes are noted, a manual differential will be performed. Immature Gran Absolute 0.01 0.00 - 0.04 x10(3)/[facility] Blood specimen (specimen) 05/03/2018 3:06 AM EDT 05/03/2018 3:16 AM EDT Narrative Resulting Agency Comment Spec In Lab Apple Gutierrez MD HEMATOLOGY ORDERABLE S [facility] [place] [address] * (ABNORMAL) Hemogram (05/03/2018 3:06 AM EDT) White Blood Cell 5.0 4.0 - 9.5 x10(3)/ L [facility] Red Blood Cell 2.64(L) 4.58 - 5.54 x10(6)/ L [facility] Hemoglobin 8.2(L) 13.7 - 16.5 gm/dL [facility] Hematocrit 25.1(L) 40.5 - 48.5 % [facility] Mean Cell Volume 95.1(H) 82.9 - 93.1 fL [facility] Mean Cell Hemoglobin 31.1 27.5 - 32.1 pg [facility] Mean Cell Hemoglobin Concentration 32.7 32.0 - 35.7 gm/dL [facility] Platelet 160 145 - 357 x10(3)/ L [facility] RDW Standard Deviation 54.3(H) 36.0 - 45.0 fL [facility] RDW coefficient of variation 15.6(H) 11.4 - 13.8 % [facility] Mean Platelet Volume 9.0 7.6 - 12.9 fL [facility] NRBC% auto 0.0 % [facility] NRBC Absolute 0.000 0.000 - 0.000 x10(3)/mc L [facility] Blood specimen (specimen) 05/03/2018 3:06 AM EDT 05/03/2018 3:16 AM EDT Narrative Resulting Agency Comment Spec In Lab Apple Gutierrez MD HEMATOLOGY ORDERABLE S [facility] [place] [address] * (ABNORMAL) Basic Metabolic Panel (non-fasting) (05/03/2018 3:06 AM EDT) Glucose 99 65 - 199 mg/dL [facility] Comment:Diabetes: >=200 mg/d L plus symptoms Blood Urea Nitrogen 35(H) 10 - 20 mg/dL [facility] Creatinine 2.58(H) 0.80 - 1.50 mg/dL [facility] Sodium 135 135 - 145 mmol/L [facility] Potassium 4.2 3.5 - 5.0 mmol/L [facility] Comment: Please note: ??Patients with WBC >100,000 may have falsely elevated Potassium levels. ??For accurate Potassium quantification in these patients send serum separator tube (gold top) for subsequent determinations. ??Contact the Clinical Chemistry Laboratory if there are any questions. Chloride 101 98 - 107 mmol/L [facility] Carbon Dioxide 20(L) 22 - 31 mmol/L [facility] Anion Gap 14 5 - 15 mmol/L [facility] Calcium 7.9(L) 8.5 - 10.5 mg/dL [facility] Est Glomerular Filtration Rate 27(L) >=60 mL/min/1. 73 m?? [facility] Comment: The eGFR was calculated using the CKD-EPI equation. As with all creatinine based estimates of kidney function, eGFR values calculated with the CKD-EPI equation are not accurate in patients with acute kidney failure, extremes of body mass or the acutely ill. [email or web address] eGFR 31(L) >=60 mL/min/1. 73 m?? [facility] Comment: The eGFR was calculated using the CKD-EPI equation. As with all creatinine based estimates of kidney function, eGFR values calculated with the CKD-EPI equation are not accurate in patients with acute kidney failure, extremes of body mass or the acutely ill. [email or web address] Blood specimen (specimen) 05/03/2018 3:06 AM EDT 05/03/2018 3:16 AM EDT Narrative Resulting Agency Comment Spec In Lab Hay Sparks MD CHEMISTRY ORDERABLES Performing Organization Address City/State/[facility] Co de Phone Number [facility] [place] [address] * Differential, Automated (05/02/2018 3:20 AM EDT) Neutrophil % 60.2 % [facility] Neutrophil Absolute 2.89 1.70 - 6.10 x10(3)/[facility] Lymph % 20.8 % [facility] Lymphocytes Abs 1.0 0.9 - 3.2 x10(3)/[facility] Monocyte % 9.2 % [facility] Monocyte Abs 0.4 0.3 - 0.9 x10(3)/[facility] Eos % 8.8 % [facility] Eosinophils Abs 0.4 0.0 - 0.4 x10(3)/[facility] Basophil % 0.6 % [facility] Baso Absolute 0.0 0.0 - 0.1 x10(3)/[facility] Immature Gran % 0.40 % [facility] Comment: Immature granulocytes(IG's)percentage and absolute count will include metamyelocytes, myelocytes, and promyelocytes. Blood smears from CBCs yielding IG's will be scanned manually for concordance. If this scan disagrees with the automated IG or if promyelocytes are noted, a manual differential will be performed. Immature Gran Absolute 0.02 0.00 - 0.04 x10(3)/mcL [facility] Blood specimen (specimen) 05/02/2018 3:20 AM EDT 05/02/2018 3:26 AM EDT Narrative Resulting Agency Comment Spec In Lab Apple Gutierrez MD HEMATOLOGY ORDERABLE S [facility] [place] [address] * (ABNORMAL) Hemogram (05/02/2018 3:20 AM EDT) White Blood Cell 4.8 4.0 - 9.5 x10(3)/mc L [facility] Red Blood Cell 2.61(L) 4.58 - 5.54 x10(6)/mc L [facility] Hemoglobin 8.2(L) 13.7 - 16.5 gm/dL [facility] Hematocrit 24.6(L) 40.5 - 48.5 % [facility] Mean Cell Volume 94.3(H) 82.9 - 93.1 fL [facility] Mean Cell Hemoglobin 31.4 27.5 - 32.1 pg [facility] Mean Cell Hemoglobin Concentration 33.3 32.0 - 35.7 gm/dL [facility] Platelet 168 145 - 357 x10(3)/mc L [facility] RDW Standard Deviation 54.4(H) 36.0 - 45.0 fL [facility] RDW coefficient of variation 15.5(H) 11.4 - 13.8 % [facility] Mean Platelet Volume 8.7 7.6 - 12.9 fL [facility] NRBC% auto 0.0 % [facility] NRBC Absolute 0.000 0.000 - 0.000 x10(3)/mc L [facility] Blood specimen (specimen) 05/02/2018 3:20 AM EDT 05/02/2018 3:26 AM EDT Narrative Resulting Agency Comment Spec In Lab Apple Gutierrez MD HEMATOLOGY ORDERABLE S [facility] [place] [address] * (ABNORMAL) Basic Metabolic Panel (non-fasting) (05/02/2018 3:20 AM EDT) Glucose 94 65 - 199 mg/dL [facility] Comment:Diabetes: >=200 mg/d L plus symptoms Blood Urea Nitrogen 38(H) 10 - 20 mg/dL [facility] Creatinine 2.73(H) 0.80 - 1.50 mg/dL [facility] Sodium 135 135 - 145 mmol/L [facility] Potassium 4.3 3.5 - 5.0 mmol/L [facility] Comment: Please note: ??Patients with WBC >100,000 may have falsely elevated Potassium levels. ??For accurate Potassium quantification in these patients send serum separator tube (gold top) for subsequent determinations. ??Contact the Clinical Chemistry Laboratory if there are any questions. Chloride 103 98 - 107 mmol/L [facility] Carbon Dioxide 19(L) 22 - 31 mmol/L [facility] Anion Gap 13 5 - 15 mmol/L [facility] Calcium 7.7(L) 8.5 - 10.5 mg/dL [facility] Est Glomerular Filtration Rate 25(L) >=60 mL/min/1. 73 m?? [facility] Comment: The eGFR was calculated using the CKD-EPI equation. As with all creatinine based estimates of kidney function, eGFR values calculated with the CKD-EPI equation are not accurate in patients with acute kidney failure, extremes of body mass or the acutely ill. [email or web address] eGFR 29(L) >=60 mL/min/1. 73 m?? [facility] Comment: The eGFR was calculated using the CKD-EPI equation. As with all creatinine based estimates of kidney function, eGFR values calculated with the CKD-EPI equation are not accurate in patients with acute kidney failure, extremes of body mass or the acutely ill. [email or web address] Blood specimen (specimen) 05/02/2018 3:20 AM EDT 05/02/2018 3:25 AM EDT Narrative Resulting Agency Comment Spec In Lab Hay Sparks MD CHEMISTRY ORDERABLES [facility] [place] [address] * Differential, Automated (05/01/2018 4:00 AM EDT) Neutrophil % 60.0 % [facility] Neutrophil Absolute 2.98 1.70 - 6.10 x10(3)/[facility] Lymph % 21.2 % [facility] Lymphocytes Abs 1.0 0.9 - 3.2 x10(3)/[facility] Monocyte % 9.7 % [facility] Monocyte Abs 0.5 0.3 - 0.9 x10(3)/[facility] Eos % 8.1 % [facility] Eosinophils Abs 0.4 0.0 - 0.4 x10(3)/[facility] Basophil % 0.8 % [facility] Baso Absolute 0.0 0.0 - 0.1 x10(3)/[facility] Immature Gran % 0.20 % [facility] Comment: Immature granulocytes(IG's)percentage and absolute count will include metamyelocytes, myelocytes, and promyelocytes. Blood smears from CBCs yielding IG's will be scanned manually for concordance. If this scan disagrees with the automated IG or if promyelocytes are noted, a manual differential will be performed. Immature Gran Absolute 0.01 0.00 - 0.04 x10(3)/mcL [facility] Blood specimen (specimen) 05/01/2018 4:00 AM EDT 05/01/2018 4:13 AM EDT Narrative Resulting Agency Comment Spec In Lab Apple Gutierrez MD HEMATOLOGY ORDERABLE S [facility] [place] [address] * (ABNORMAL) Hemogram (05/01/2018 4:00 AM EDT) White Blood Cell 5.0 4.0 - 9.5 x10(3)/mc L [facility] Red Blood Cell 2.71(L) 4.58 - 5.54 x10(6)/mc L [facility] Hemoglobin 8.2(L) 13.7 - 16.5 gm/dL [facility] Hematocrit 25.6(L) 40.5 - 48.5 % [facility] Mean Cell Volume 94.5(H) 82.9 - 93.1 [facility] Mean Cell Hemoglobin 30.3 27.5 - 32.1 pg [facility] Mean Cell Hemoglobin Concentration 32.0 32.0 - 35.7 gm/dL [facility] Platelet 192 145 - 357 x10(3)/mc L [facility] RDW Standard Deviation 53.5(H) 36.0 - 45.0 [facility] RDW coefficient of variation 15.5(H) 11.4 - 13.8 % [facility] Mean Platelet Volume 8.9 7.6 - 12.9 [facility] NRBC% auto 0.0 % [facility] NRBC Absolute 0.000 0.000 - 0.000 x10(3)/mc L [facility] Blood specimen (specimen) 05/01/2018 4:00 AM EDT 05/01/2018 4:13 AM EDT Narrative Resulting Agency Comment Spec In Lab Apple Gutierrez MD HEMATOLOGY ORDERABLE S [facility] [place] [address] * (ABNORMAL) Basic Metabolic Panel (non-fasting) (05/01/2018 4:00 AM EDT) Glucose 101 65 - 199 mg/dL [facility] Comment:Diabetes: >=200 mg/d L plus symptoms Blood Urea Nitrogen 36(H) 10 - 20 mg/dL [facility] Creatinine 2.66(H) 0.80 - 1.50 mg/dL [facility] Sodium 134(L) 135 - 145 mmol/L [facility] Potassium 3.9 3.5 - 5.0 mmol/L [facility] Comment: Please note: ??Patients with WBC >100,000 may have falsely elevated Potassium levels. ??For accurate Potassium quantification in these patients send serum separator tube (gold top) for subsequent determinations. ??Contact the Clinical Chemistry Laboratory if there are any questions. Chloride 101 98 - 107 mmol/L [facility] Carbon Dioxide 19(L) 22 - 31 mmol/L [facility] Anion Gap 14 5 - 15 mmol/L [facility] Calcium 8.0(L) 8.5 - 10.5 mg/dL [facility] Est Glomerular Filtration Rate 26(L) >=60 mL/min/1. 73 m?? [facility] Comment: The eGFR was calculated using the CKD-EPI equation. As with all creatinine based estimates of kidney function, eGFR values calculated with the CKD-EPI equation are not accurate in patients with acute kidney failure, extremes of body mass or the acutely ill. [email or web address] eGFR 30(L) >=60 mL/min/1. 73 m?? [facility] Comment: The eGFR was calculated using the CKD-EPI equation. As with all creatinine based estimates of kidney function, eGFR values calculated with the CKD-EPI equation are not accurate in patients with acute kidney failure, extremes of body mass or the acutely ill. [email or web address] Blood specimen (specimen) 05/01/2018 4:00 AM EDT 05/01/2018 4:13 AM EDT Narrative Resulting Agency Comment Spec In Lab Hay Sparks MD CHEMISTRY ORDERABLES Performing Organization Address [facility] Co de Phone Number [facility] [place] [address] * Vancomycin, trough (04/30/2018 7:05 PM EDT) [...] Sparks MD CHEMISTRY ORDERABLES Performing Organization Address City/[facility] Co de Phone Number [facility] [place] [address] * Differential, Automated (04/30/2018 2:55 AM EDT) Neutrophil % 60.3 % [facility] Neutrophil Absolute 3.15 1.70 - 6.10 x10(3)/mcL [facility] Lymph % 22.8 % [facility] Lymphocytes Abs 1.2 0.9 - 3.2 x10(3)/[facility] Monocyte % 10.2 % [facility] Monocyte Abs 0.5 0.3 - 0.9 x10(3)/[facility] Eos % 5.7 % [facility] Eosinophils Abs 0.3 0.0 - 0.4 x10(3)/[facility] Basophil % 0.6 % [facility] Baso Absolute 0.0 0.0 - 0.1 x10(3)/[facility] Immature Gran % 0.40 % [facility] Comment: Immature granulocytes(IG's)percentage and absolute count will include metamyelocytes, myelocytes, and promyelocytes. Blood smears from CBCs yielding IG's will be scanned manually for concordance. If this scan disagrees with the automated IG or if promyelocytes are noted, a manual differential will be performed. Immature Gran Absolute 0.02 0.00 - 0.04 x10(3)/[facility] Blood specimen (specimen) 04/30/2018 2:55 AM EDT 04/30/2018 3:06 AM EDT Narrative Resulting Agency Comment Spec In Lab Apple Gutierrez MD HEMATOLOGY ORDERABLE S Performing Organization Address City/State/[facility] Co de Phone Number [facility] [place] [address] * (ABNORMAL) Hemogram (04/30/2018 2:55 AM EDT) White Blood Cell 5.2 4.0 - 9.5 x10(3)/[facility] Red Blood Cell 2.53(L) 4.58 - 5.54 x10(6)/ L [facility] Hemoglobin 7.9(L) 13.7 - 16.5 gm/dL [facility] Hematocrit 24.3(L) 40.5 - 48.5 % [facility] Mean Cell Volume 96.0(H) 82.9 - 93.1 fL [facility] Mean Cell Hemoglobin 31.2 27.5 - 32.1 pg [facility] Mean Cell Hemoglobin Concentration 32.5 32.0 - 35.7 gm/dL [facility] Platelet 186 145 - 357 x10(3)/mc L [facility] RDW Standard Deviation 54.7(H) 36.0 - 45.0 fL [facility] RDW coefficient of variation 15.6(H) 11.4 - 13.8 % [facility] Mean Platelet Volume 8.7 7.6 - 12.9 fL [facility] NRBC% auto 0.0 % [facility] NRBC Absolute 0.000 0.000 - 0.000 x10(3)/mc L [facility] Blood specimen (specimen) 04/30/2018 2:55 AM EDT 04/30/2018 3:06 AM EDT Narrative Resulting Agency Comment Spec In Lab Apple Gutierrez MD HEMATOLOGY ORDERABLE S [facility] [place] [address] * (ABNORMAL) Basic Metabolic Panel (non-fasting) (04/30/2018 2:55 AM EDT) Glucose 96 65 - 199 mg/dL [facility] Comment:Diabetes: >=200 mg/d L plus symptoms Blood Urea Nitrogen 39(H) 10 - 20 mg/dL [facility] Creatinine 2.94(H) 0.80 - 1.50 mg/dL [facility] Sodium 135 135 - 145 mmol/L [facility] Potassium 4.5 3.5 - 5.0 mmol/L [facility] Comment: Please note: ??Patients with WBC >100,000 may have falsely elevated Potassium levels. ??For accurate Potassium quantification in these patients send serum separator tube (gold top) for subsequent determinations. ??Contact the Clinical Chemistry Laboratory if there are any questions. Chloride 100 98 - 107 mmol/L [facility] Carbon Dioxide 21(L) 22 - 31 mmol/L [facility] Anion Gap 14 5 - 15 mmol/L [facility] Calcium 8.1(L) 8.5 - 10.5 mg/dL [facility] Est Glomerular Filtration Rate 23(L) >=60 mL/min/1. 73 m?? [facility] Comment: The eGFR was calculated using the CKD-EPI equation. As with all creatinine based estimates of kidney function, eGFR values calculated with the CKD-EPI equation are not accurate in patients with acute kidney failure, extremes of body mass or the acutely ill. [email or web address] eGFR 26(L) >=60 mL/min/1. 73 m?? [facility] Comment: The eGFR was calculated using the CKD-EPI equation. As with all creatinine based estimates of kidney function, eGFR values calculated with the CKD-EPI equation are not accurate in patients with acute kidney failure, extremes of body mass or the acutely ill. [email or web address] Blood specimen (specimen) 04/30/2018 2:55 AM EDT 04/30/2018 3:06 AM EDT Narrative Resulting Agency Comment Spec In Lab Hay Sparks MD CHEMISTRY ORDERABLES [facility] [place] [address] * Vancomycin, trough (04/29/2018 5:15 PM EDT) [...] ORDERAB LES Performing Organization Address [facility] de Phone Number [facility] [place] [address] * Vancomycin, trough (04/29/2018 6:55 AM EDT) Pathologist [facility] Vancomycin, Trough 19.5 mg/L [facility] Comment: Therapeutic range for complicated [...] CHEMISTRY ORDERABLES Performing Organization Address [facility] Co de Phone Number [facility] [place] [phone] * Differential, Automated (04/29/2018 5:40 AM EDT) Pathologist [facility] Neutrophil % 63.0 % [facility] Neutrophil Absolute 3.22 1.70 - 6.10 x10(3)/[facility] Lymph % 21.1 % [facility] Lymphocytes Abs 1.1 0.9 - 3.2 x10(3)/[facility] Monocyte % 9.0 % [facility] Monocyte Abs 0.5 0.3 - 0.9 x10(3)/[facility] Eos % 5.5 % [facility] Eosinophils Abs 0.3 0.0 - 0.4 x10(3)/[facility] Basophil % 0.8 % [facility] Baso Absolute 0.0 0.0 - 0.1 x10(3)/[facility] Immature Gran % 0.60 % [facility] Comment: Immature granulocytes(IG's)percentage and absolute count will include metamyelocytes, myelocytes, and promyelocytes. Blood smears from CBCs yielding IG's will be scanned manually for concordance. If this scan disagrees with the automated IG or if promyelocytes are noted, a manual differential will be performed. Immature Gran Absolute 0.03 0.00 - 0.04 x10(3)/[facility] Blood specimen (specimen) 04/29/2018 5:40 AM EDT 04/29/2018 6:11 AM EDT Narrative Resulting Agency Comment Spec In Lab Apple Gutierrez MD HEMATOLOGY ORDERABLE S [facility] [place] [address] * (ABNORMAL) Hemogram (04/29/2018 5:40 AM EDT) White Blood Cell 5.1 4.0 - 9.5 x10(3)/mc L [facility] Red Blood Cell 2.56(L) 4.58 - 5.54 x10(6)/mc L [facility] Hemoglobin 7.7(L) 13.7 - 16.5 gm/dL [facility] Hematocrit 24.2(L) 40.5 - 48.5 % [facility] Mean Cell Volume 94.5(H) 82.9 - 93.1 fL [facility] Mean Cell Hemoglobin 30.1 27.5 - 32.1 pg [facility] Mean Cell Hemoglobin Concentration 31.8(L) 32.0 - 35.7 gm/dL [facility] Platelet 216 145 - 357 x10(3)/mc L [facility] RDW Standard Deviation 53.7(H) 36.0 - 45.0 fL [facility] RDW coefficient of variation 15.4(H) 11.4 - 13.8 % [facility] Mean Platelet Volume 8.9 7.6 - 12.9 fL [facility] NRBC% auto 0.0 % [facility] NRBC Absolute 0.000 0.000 - 0.000 x10(3)/mc L [facility] Blood specimen (specimen) 04/29/2018 5:40 AM EDT 04/29/2018 6:11 AM EDT Narrative Resulting Agency Comment Spec In Lab Apple Gutierrez MD HEMATOLOGY ORDERABLE S [facility] [place] [address] * (ABNORMAL) Basic Metabolic Panel (non-fasting) (04/29/2018 5:40 AM EDT) Glucose 91 65 - 199 mg/dL [facility] Comment:Diabetes: >=200 mg/d L plus symptoms Blood Urea Nitrogen 41(H) 10 - 20 mg/dL [facility] Creatinine 2.51(H) 0.80 - 1.50 mg/dL [facility] Sodium 136 135 - 145 mmol/L [facility] Potassium 4.9 3.5 - 5.0 mmol/L [facility] Comment: Please note: ??Patients with WBC >100,000 may have falsely elevated Potassium levels. ??For accurate Potassium quantification in these patients send serum separator tube (gold top) for subsequent determinations. ??Contact the Clinical Chemistry Laboratory if there are any questions. Chloride 104 98 - 107 mmol/L [facility] Carbon Dioxide 21(L) 22 - 31 mmol/L [facility] Anion Gap 11 5 - 15 mmol/L [facility] Calcium 8.0(L) 8.5 - 10.5 mg/dL [facility] Est Glomerular Filtration Rate 28(L) >=60 mL/min/1. 73 m?? [facility] Comment: The eGFR was calculated using the CKD-EPI equation. As with all creatinine based estimates of kidney function, eGFR values calculated with the CKD-EPI equation are not accurate in patients with acute kidney failure, extremes of body mass or the acutely ill. [email or web address] eGFR 32(L) >=60 mL/min/1. 73 m?? [facility] Comment: The eGFR was calculated using the CKD-EPI equation. As with all creatinine based estimates of kidney function, eGFR values calculated with the CKD-EPI equation are not accurate in patients with acute kidney failure, extremes of body mass or the acutely ill. [email or web address] Blood specimen (specimen) 04/29/2018 5:40 AM EDT 04/29/2018 6:11 AM EDT Narrative Resulting Agency Comment Spec In Lab Hay Sparks MD CHEMISTRY ORDERABLES [facility] [place] [address] * (ABNORMAL) Vancomycin, trough (04/28/2018 1:09 PM EDT) Vancomycin, Trough 21.6(Crit ical) mg/L [facility] Comment: Called by: MASSIEL, Read [...] Sparks MD CHEMISTRY ORDERABLES Performing Organization Address City/[facility]/ZIP Co de Phone Number [facility] [place] [address] * EKG 12 Lead (04/28/2018 7:17 AM EDT) Ventricular rate 51 BPM MUSE SYSTEM Atrial Rate 51 BPM MUSE SYSTEM P-R Interval 162 ms MUSE SYSTEM QRS Duration 92 ms MUSE SYSTEM Q-T Interval 442 ms MUSE SYSTEM QTC Calculated (Bezet) 407 ms MUSE SYSTEM Calculated P Costilla 59 degrees MUSE SYSTEM Calculated R [place] 35 degrees MUSE SYSTEM Calculated T [place]illa 34 degrees MUSE SYSTEM INTERPRETATION Sinus bradycardia Otherwise normal ECG When compared with ECG of 26-MAY-2017 11:16, No significant change was found Confirmed by MD Aure, Sukumar Rubi ([id number]) on 04/29/2018 1:34:03 PM MUSE SYSTEM 04/28/2018 7:17 AM EDT 04/29/2018 1:34 PM EDT hCase Olvera MD ECG ORDERABLES Performing Organization Address [facility]/ZIP Co de Phone Number MUSE SYSTEM * Differential, Automated (04/28/2018 4:40 AM EDT) Neutrophil % 66.6 % [facility] Neutrophil Absolute 4.11 1.70 - 6.10 x10(3)/[facility] Lymph % 23.5 % [facility] Lymphocytes Abs 1.4 0.9 - 3.2 x10(3)/[facility] Monocyte % 7.8 % [facility] Monocyte Abs 0.5 0.3 - 0.9 x10(3)/[facility] Eos % 1.5 % [facility] Eosinophils Abs 0.1 0.0 - 0.4 x10(3)/[facility] Basophil % 0.3 % [facility] Baso Absolute 0.0 0.0 - 0.1 x10(3)/[facility] Immature Gran % 0.30 % [facility] Comment: Immature granulocytes(IG's)percentage and absolute count will include metamyelocytes, myelocytes, and promyelocytes. Blood smears from CBCs yielding IG's will be scanned manually for concordance. If this scan disagrees with the automated IG or if promyelocytes are noted, a manual differential will be performed. Immature Gran Absolute 0.02 0.00 - 0.04 x10(3)/[facility] Blood specimen (specimen) 04/28/2018 4:40 AM EDT 04/28/2018 4:53 AM EDT Narrative Resulting Agency Comment Spec In Lab Apple Gutierrez MD HEMATOLOGY ORDERABLE S [facility] [place] [address] * (ABNORMAL) Hemogram (04/28/2018 4:40 AM EDT) White Blood Cell 6.2 4.0 - 9.5 x10(3)/[facility] Red Blood Cell 2.54(L) 4.58 - 5.54 x10(6)/mc L [facility] Hemoglobin 7.6(L) 13.7 - 16.5 gm/dL [facility] Hematocrit 24.3(L) 40.5 - 48.5 % [facility] Mean Cell Volume 95.7(H) 82.9 - 93.1 fL [facility] Mean Cell Hemoglobin 29.9 27.5 - 32.1 pg [facility] Mean Cell Hemoglobin Concentration 31.3(L) 32.0 - 35.7 gm/dL [facility] Platelet 249 145 - 357 x10(3)/[facility] RDW Standard Deviation 55.3(H) 36.0 - 45.0 fL [facility] RDW coefficient of variation 15.6(H) 11.4 - 13.8 % [facility] Mean Platelet Volume 8.7 7.6 - 12.9 fL [facility] NRBC% auto 0.0 % [facility] NRBC Absolute 0.000 0.000 - 0.000 x10(3)/mc L [facility] Blood specimen (specimen) 04/28/2018 4:40 AM EDT 04/28/2018 4:53 AM EDT Narrative Resulting Agency Comment Spec In Lab Apple Gutierrez MD HEMATOLOGY ORDERABLE S [facility] [place] [address] * (ABNORMAL) Basic Metabolic Panel (non-fasting) (04/28/2018 4:40 AM EDT) Glucose 94 65 - 199 mg/dL [facility] Comment:Diabetes: >=200 mg/d L plus symptoms Blood Urea Nitrogen 44(H) 10 - 20 mg/dL [facility] Creatinine 2.80(H) 0.80 - 1.50 mg/dL [facility] Sodium 133(L) 135 - 145 mmol/L [facility] Potassium 4.9 3.5 - 5.0 mmol/L [facility] Comment: Please note: ??Patients with WBC >100,000 may have falsely elevated Potassium levels. ??For accurate Potassium quantification in these patients send serum separator tube (gold top) for subsequent determinations. ??Contact the Clinical Chemistry Laboratory if there are any questions. Chloride 101 98 - 107 mmol/L [facility] Carbon Dioxide 20(L) 22 - 31 mmol/L [facility] Anion Gap 12 5 - 15 mmol/L [facility] Calcium 8.1(L) 8.5 - 10.5 mg/dL [facility] Est Glomerular Filtration Rate 24(L) >=60 mL/min/1. 73 m?? [facility] Comment: The eGFR was calculated using the CKD-EPI equation. As with all creatinine based estimates of kidney function, eGFR values calculated with the CKD-EPI equation are not accurate in patients with acute kidney failure, extremes of body mass or the acutely ill. [email or web address] eGFR 28(L) >=60 mL/min/1. 73 m?? [facility] Comment: The eGFR was calculated using the CKD-EPI equation. As with all creatinine based estimates of kidney function, eGFR values calculated with the CKD-EPI equation are not accurate in patients with acute kidney failure, extremes of body mass or the acutely ill. [email or web address] Blood specimen (specimen) 04/28/2018 4:40 AM EDT 04/28/2018 4:53 AM EDT Narrative Resulting Agency Comment Spec In Lab Hay Sparks MD CHEMISTRY ORDERABLES Performing Organization Address [facility] Co de Phone Number [facility] [place] [address] * Vancomycin, trough (04/27/2018 1:30 PM EDT) [facility] Vancomycin, Trough 11.1 mg/L [facility] [...] Sparks MD CHEMISTRY ORDERABLES Performing Organization Address City/[facility] Co de Phone Number [facility] [place] [address] * XR PICC Placement Over 5 Years [...] 4:43 AM EDT) Neutrophil % 84.4 % [facility] Neutrophil Absolute 4.96 1.70 - 6.10 x10(3)/mc L [facility] Lymph % 9.7 % [facility] Lymphocytes Abs 0.6(L) 0.9 - 3.2 x10(3)/mc L [facility] Monocyte % 5.5 % [facility] Monocyte Abs 0.3 0.3 - 0.9 x10(3)/mc L [facility] Eos % 0.0 % [facility] Eosinophils Abs 0.0 0.0 - 0.4 x10(3)/mc L [facility] Basophil % 0.2 % [facility] Baso Absolute 0.0 0.0 - 0.1 x10(3)/[facility] Immature Gran % 0.20 % [facility] Comment: Immature granulocytes(IG's)percentage and absolute count will include metamyelocytes, myelocytes, and promyelocytes. Blood smears from CBCs yielding IG's will be scanned manually for concordance. If this scan disagrees with the automated IG or if promyelocytes are noted, a manual differential will be performed. Immature Gran Absolute 0.01 0.00 - 0.04 x10(3)/[facility] Blood specimen (specimen) 04/27/2018 4:43 AM EDT 04/27/2018 5:16 AM EDT Narrative Resulting Agency Comment Spec In Lab Apple Gutierrez MD HEMATOLOGY ORDERABLE S Performing Organization Address City/State/[facility] Co de Phone Number [facility] [place] [address] * (ABNORMAL) Hemogram (04/27/2018 4:43 AM EDT) White Blood Cell 5.9 4.0 - 9.5 x10(3)/[facility] Red Blood Cell 2.81(L) 4.58 - 5.54 x10(6)/[facility] Hemoglobin 8.8(L) 13.7 - 16.5 gm/dL [facility] Hematocrit 27.0(L) 40.5 - 48.5 % [facility] Mean Cell Volume 96.1(H) 82.9 - 93.1 fL [facility] Mean Cell Hemoglobin 31.3 27.5 - 32.1 pg [facility] Mean Cell Hemoglobin Concentration 32.6 32.0 - 35.7 gm/dL [facility] Platelet 302 145 - 357 x10(3)/[facility] RDW Standard Deviation 54.9(H) 36.0 - 45.0 fL [facility] RDW coefficient of variation 15.5(H) 11.4 - 13.8 % [facility] Mean Platelet Volume 8.8 7.6 - 12.9 fL [facility] NRBC% auto 0.0 % [facility] NRBC Absolute 0.000 0.000 - 0.000 x10(3)/mc L [facility] Blood specimen (specimen) 04/27/2018 4:43 AM EDT 04/27/2018 5:16 AM EDT Narrative Resulting Agency Comment Spec In Lab Apple Gutierrez MD HEMATOLOGY ORDERABLE S [facility] [place] [address] * (ABNORMAL) Basic Metabolic Panel (non-fasting) (04/27/2018 4:43 AM EDT) Glucose 142 65 - 199 mg/dL [facility] Comment:Diabetes: >=200 mg/d L plus symptoms Blood Urea Nitrogen 41(H) 10 - 20 mg/dL [facility] Creatinine 2.81(H) 0.80 - 1.50 mg/dL [facility] Sodium 132(L) 135 - 145 mmol/L [facility] Potassium 5.6(H) 3.5 - 5.0 mmol/L [facility] Comment: Please note: ??Patients with WBC >100,000 may have falsely elevated Potassium levels. ??For accurate Potassium quantification in these patients send serum separator tube (gold top) for subsequent determinations. ??Contact the Clinical Chemistry Laboratory if there are any questions. Chloride 101 98 - 107 mmol/L [facility] Carbon Dioxide 18(L) 22 - 31 mmol/L [facility] Anion Gap 13 5 - 15 mmol/L [facility] Calcium 8.4(L) 8.5 - 10.5 mg/dL [facility] Est Glomerular Filtration Rate 24(L) >=60 mL/min/1. 73 m?? [facility] Comment: The eGFR was calculated using the CKD-EPI equation. As with all creatinine based estimates of kidney function, eGFR values calculated with the CKD-EPI equation are not accurate in patients with acute kidney failure, extremes of body mass or the acutely ill. [email or web address] eGFR 28(L) >=60 mL/min/1. 73 m?? [facility] Comment: The eGFR was calculated using the CKD-EPI equation. As with all creatinine based estimates of kidney function, eGFR values calculated with the CKD-EPI equation are not accurate in patients with acute kidney failure, extremes of body mass or the acutely ill. [email or web address] Blood specimen (specimen) 04/27/2018 4:43 AM EDT 04/27/2018 5:16 AM EDT Narrative Resulting Agency Comment Spec In Lab Hay Sparks MD CHEMISTRY ORDERABLES [facility] [place] [address] * (ABNORMAL) Hemogram (04/26/2018 3:09 PM EDT) White Blood Cell 4.8 4.0 - 9.5 x10(3)/mc L [facility] Red Blood Cell 2.90(L) 4.58 - 5.54 x10(6)/mc L [facility] Hemoglobin 8.8(L) 13.7 - 16.5 gm/dL [facility] Hematocrit 27.5(L) 40.5 - 48.5 % [facility] Mean Cell Volume 94.8(H) 82.9 - 93.1 fL [facility] Mean Cell Hemoglobin 30.3 27.5 - 32.1 pg [facility] Mean Cell Hemoglobin Concentration 32.0 32.0 - 35.7 gm/dL [facility] Platelet 273 145 - 357 x10(3)/mc L [facility] RDW Standard Deviation 55.8(H) 36.0 - 45.0 fL [facility] RDW coefficient of variation 15.9(H) 11.4 - 13.8 % [facility] Mean Platelet Volume 9.1 7.6 - 12.9 fL [facility] NRBC% auto 0.0 % [facility] NRBC Absolute 0.000 0.000 - 0.000 x10(3)/mc L [facility] Blood specimen (specimen) 04/26/2018 3:09 PM EDT 04/26/2018 3:16 PM EDT Narrative Resulting Agency Comment Spec In Lab Chase Olvera MD HEMATOLOGY ORDERA BLES Performing Organization Address [facility] de Phone Number [facility] [place] [address] * Vancomycin, trough (04/26/2018 2:15 PM EDT) Vancomycin, Trough 11.8 mg/L [facility] Comment: Therapeutic range for complicated [...] CHEMISTRY ORDERABLES Performing Organization Address [facility] Co de Phone Number [facility] [place] [address] * ABORH Recheck Status (04/26/2018 11:42 AM EDT) ABORH Type Recheck Completed [facility] Blood specimen (specimen) 04/26/2018 11:42 AM EDT 04/26/2018 11:42 AM EDT Narrative Resulting Agency Comment Spec In Lab Natalya Jacobsen MD BLOOD BANK LAB ORDER KELLY Performing Organization Address City/[facility]/ZIP Co de Phone Number [facility] [place] [address] * Antibody screen (04/26/2018 11:42 AM EDT) Pathologist [facility] Ab Screen Interp Negative [facility] Expires at [id number] on: 04/29/2018 [facility] Blood specimen (specimen) 04/26/2018 11:42 AM EDT 04/26/2018 11:42 AM EDT Narrative Resulting Agency Comment Spec In Lab Natalya Jacobsen MD BLOOD BANK LAB ORDER KELLY Performing Organization Address City/[facility]/ZIP Co de Phone Number [facility] [place] [address] * ABO/Rh Typing (04/26/2018 11:42 AM EDT) Pathologist [facility] ABORH Type A Pos [facility] Blood specimen (specimen) 04/26/2018 11:42 AM EDT 04/26/2018 11:42 AM EDT Narrative Resulting Agency Comment Spec In Lab Natalya Jacobsen MD BLOOD BANK LAB ORDER KELLY Performing Organization Address City/[facility]/ZIP Co de Phone Number [facility] [place] [address] * Differential, Automated (04/26/2018 4:39 AM EDT) Neutrophil % 55.1 % [facility] Neutrophil Absolute 2.56 1.70 - 6.10 x10(3)/[facility] Lymph % 27.7 % [facility] Lymphocytes Abs 1.3 0.9 - 3.2 x10(3)/[facility] Monocyte % 10.5 % [facility] Monocyte Abs 0.5 0.3 - 0.9 x10(3)/[facility] Eos % 5.2 % [facility] Eosinophils Abs 0.2 0.0 - 0.4 x10(3)/[facility] Basophil % 1.3 % [facility] Baso Absolute 0.1 0.0 - 0.1 x10(3)/[facility] Immature Gran % 0.20 % [facility] Comment: Immature granulocytes(IG's)percentage and absolute count will include metamyelocytes, myelocytes, and promyelocytes. Blood smears from CBCs yielding IG's will be scanned manually for concordance. If this scan disagrees with the automated IG or if promyelocytes are noted, a manual differential will be performed. Immature Gran Absolute 0.01 0.00 - 0.04 x10(3)/[facility] Blood specimen (specimen) 04/26/2018 4:39 AM EDT 04/26/2018 4:58 AM EDT Narrative Resulting Agency Comment Spec In Lab Apple Gutierrez MD HEMATOLOGY ORDERABLE S [facility] [place] [address] * (ABNORMAL) Hemogram (04/26/2018 4:39 AM EDT) White Blood Cell 4.6 4.0 - 9.5 x10(3)/mc L [facility] Red Blood Cell 2.58(L) 4.58 - 5.54 x10(6)/mc L [facility] Hemoglobin 7.9(L) 13.7 - 16.5 gm/dL [facility] Hematocrit 24.6(L) 40.5 - 48.5 % [facility] Mean Cell Volume 95.3(H) 82.9 - 93.1 fL [facility] Mean Cell Hemoglobin 30.6 27.5 - 32.1 pg [facility] Mean Cell Hemoglobin Concentration 32.1 32.0 - 35.7 gm/dL [facility] Platelet 253 145 - 357 x10(3)/mc L [facility] RDW Standard Deviation 54.4(H) 36.0 - 45.0 fL [facility] RDW coefficient of variation 15.7(H) 11.4 - 13.8 % [facility] Mean Platelet Volume 8.4 7.6 - 12.9 fL [facility] NRBC% auto 0.0 % [facility] NRBC Absolute 0.000 0.000 - 0.000 x10(3)/mc L [facility] Blood specimen (specimen) 04/26/2018 4:39 AM EDT 04/26/2018 4:58 AM EDT Narrative Resulting Agency Comment Spec In Lab Apple Gutierrez MD HEMATOLOGY ORDERABLE S [facility] [place] [address] * (ABNORMAL) Basic Metabolic Panel (non-fasting) (04/26/2018 4:39 AM EDT) Glucose 93 65 - 199 mg/dL [facility] Comment:Diabetes: >=200 mg/d L plus symptoms Blood Urea Nitrogen 37(H) 10 - 20 mg/dL [facility] Creatinine 2.80(H) 0.80 - 1.50 mg/dL [facility] Sodium 138 135 - 145 mmol/L [facility] Potassium 5.2(H) 3.5 - 5.0 mmol/L [facility] Comment: Please note: ??Patients with WBC >100,000 may have falsely elevated Potassium levels. ??For accurate Potassium quantification in these patients send serum separator tube (gold top) for subsequent determinations. ??Contact the Clinical Chemistry Laboratory if there are any questions. Chloride 106 98 - 107 mmol/L [facility] Carbon Dioxide 19(L) 22 - 31 mmol/L [facility] Anion Gap 13 5 - 15 mmol/L [facility] Calcium 8.2(L) 8.5 - 10.5 mg/dL [facility] Est Glomerular Filtration Rate 24(L) >=60 mL/min/1. 73 m?? [facility] Comment: The eGFR was calculated using the CKD-EPI equation. As with all creatinine based estimates of kidney function, eGFR values calculated with the CKD-EPI equation are not accurate in patients with acute kidney failure, extremes of body mass or the acutely ill. [email or web address] [place] eGFR 28(L) >=60 mL/min/1. 73 m?? [facility] Comment: The eGFR was calculated using the CKD-EPI equation. As with all creatinine based estimates of kidney function, eGFR values calculated with the CKD-EPI equation are not accurate in patients with acute kidney failure, extremes of body mass or the acutely ill. [email or web address] Blood specimen (specimen) 04/26/2018 4:39 AM EDT 04/26/2018 4:58 AM EDT Narrative Resulting Agency Comment Spec In Lab Hay Sparks MD CHEMISTRY ORDERABLES [facility] [place] [address] * SCAN DOC: ECG (04/26/2018 12:00 AM EDT) Narrative 04/26/2018 12:00 AM EDT Ordered by an unspecified provider. Scanning Provider MEDIA MGR SCAN EXT O RDR/RSLT * Differential, Automated (04/25/2018 5:18 AM EDT) Neutrophil % 64.9 % [facility] Neutrophil Absolute 3.49 1.70 - 6.10 x10(3)/mcL [facility] Lymph % 20.4 % [facility] Lymphocytes Abs 1.1 0.9 - 3.2 x10(3)/[facility] Monocyte % 8.0 % [facility] Monocyte Abs 0.4 0.3 - 0.9 x10(3)/[facility] Eos % 4.8 % [facility] Eosinophils Abs 0.3 0.0 - 0.4 x10(3)/[facility] Basophil % 1.5 % [facility] Baso Absolute 0.1 0.0 - 0.1 x10(3)/[facility] Immature Gran % 0.40 % [facility] Comment: Immature granulocytes(IG's)percentage and absolute count will include metamyelocytes, myelocytes, and promyelocytes. Blood smears from CBCs yielding IG's will be scanned manually for concordance. If this scan disagrees with the automated IG or if promyelocytes are noted, a manual differential will be performed. Immature Gran Absolute 0.02 0.00 - 0.04 x10(3)/[facility] Blood specimen (specimen) 04/25/2018 5:18 AM EDT 04/25/2018 5:43 AM EDT Narrative Resulting Agency Comment Spec In Lab Apple Gutierrez MD HEMATOLOGY ORDERABLE S [facility] [place] [address] * (ABNORMAL) Hemogram (04/25/2018 5:18 AM EDT) White Blood Cell 5.4 4.0 - 9.5 x10(3)/mc L [facility] Red Blood Cell 2.70(L) 4.58 - 5.54 x10(6)/ L [facility] Hemoglobin 8.2(L) 13.7 - 16.5 gm/dL [facility] Hematocrit 26.1(L) 40.5 - 48.5 % [facility] Mean Cell Volume 96.7(H) 82.9 - 93.1 fL [facility] Mean Cell Hemoglobin 30.4 27.5 - 32.1 pg [facility] Mean Cell Hemoglobin Concentration 31.4(L) 32.0 - 35.7 gm/dL [facility] Platelet 327 145 - 357 x10(3)/mc L [facility] RDW Standard Deviation 55.7(H) 36.0 - 45.0 fL [facility] RDW coefficient of variation 15.8(H) 11.4 - 13.8 % [facility] Mean Platelet Volume 9.1 7.6 - 12.9 fL [facility] NRBC% auto 0.0 % [facility] NRBC Absolute 0.000 0.000 - 0.000 x10(3)/mc L [facility] Blood specimen (specimen) 04/25/2018 5:18 AM EDT 04/25/2018 5:43 AM EDT Narrative Resulting Agency Comment Spec In Lab Apple Gutierrez MD HEMATOLOGY ORDERABLE S [facility] [place] [address] * (ABNORMAL) Basic Metabolic Panel (non-fasting) (04/25/2018 5:18 AM EDT) Glucose 97 65 - 199 mg/dL [facility] Comment:Diabetes: >=200 mg/d L plus symptoms Blood Urea Nitrogen 39(H) 10 - 20 mg/dL [facility] Creatinine 2.58(H) 0.80 - 1.50 mg/dL [facility] Sodium 138 135 - 145 mmol/L [facility] Potassium 5.2(H) 3.5 - 5.0 mmol/L [facility] Comment: Please note: ??Patients with WBC >100,000 may have falsely elevated Potassium levels. ??For accurate Potassium quantification in these patients send serum separator tube (gold top) for subsequent determinations. ??Contact the Clinical Chemistry Laboratory if there are any questions. Chloride 106 98 - 107 mmol/L [facility] Carbon Dioxide 19(L) 22 - 31 mmol/L [facility] Anion Gap 13 5 - 15 mmol/L [facility] Calcium 8.1(L) 8.5 - 10.5 mg/dL [facility] Est Glomerular Filtration Rate 27(L) >=60 mL/min/1. 73 m?? [facility] Comment: The eGFR was calculated using the CKD-EPI equation. As with all creatinine based estimates of kidney function, eGFR values calculated with the CKD-EPI equation are not accurate in patients with acute kidney failure, extremes of body mass or the acutely ill. [email or web address] eGFR 31(L) >=60 mL/min/1. 73 m?? [facility] Comment: The eGFR was calculated using the CKD-EPI equation. As with all creatinine based estimates of kidney function, eGFR values calculated with the CKD-EPI equation are not accurate in patients with acute kidney failure, extremes of body mass or the acutely ill. [email or web address] Blood specimen (specimen) 04/25/2018 5:18 AM EDT 04/25/2018 5:43 AM EDT Narrative Resulting Agency Comment Spec In Lab Hay Sparks MD CHEMISTRY ORDERABLES [facility] [place] [address] * Differential, Automated (04/24/2018 4:17 AM EDT) Neutrophil % 58.3 % [facility] Neutrophil Absolute 2.74 1.70 - 6.10 x10(3)/[facility] Lymph % 24.8 % [facility] Lymphocytes Abs 1.2 0.9 - 3.2 x10(3)/[facility] Monocyte % 9.3 % [facility] Monocyte Abs 0.4 0.3 - 0.9 x10(3)/[facility] Eos % 5.9 % [facility] Eosinophils Abs 0.3 0.0 - 0.4 x10(3)/[facility] Basophil % 1.1 % [facility] Baso Absolute 0.0 0.0 - 0.1 x10(3)/[facility] Immature Gran % 0.60 % [facility] Comment: Immature granulocytes(IG's)percentage and absolute count will include metamyelocytes, myelocytes, and promyelocytes. Blood smears from CBCs yielding IG's will be scanned manually for concordance. If this scan disagrees with the automated IG or if promyelocytes are noted, a manual differential will be performed. Immature Gran Absolute 0.03 0.00 - 0.04 x10(3)/[facility] Blood specimen (specimen) 04/24/2018 4:17 AM EDT 04/24/2018 4:40 AM EDT Narrative Resulting Agency Comment Spec In Lab Apple Gutierrez MD HEMATOLOGY ORDERABLE S [facility] [place] [address] * (ABNORMAL) Hemogram (04/24/2018 4:17 AM EDT) White Blood Cell 4.7 4.0 - 9.5 x10(3)/mc L [facility] Red Blood Cell 2.61(L) 4.58 - 5.54 x10(6)/mc L [facility] Hemoglobin 7.9(L) 13.7 - 16.5 gm/dL [facility] Hematocrit 24.6(L) 40.5 - 48.5 % [facility] Mean Cell Volume 94.3(H) 82.9 - 93.1 fL [facility] Mean Cell Hemoglobin 30.3 27.5 - 32.1 pg [facility] Mean Cell Hemoglobin Concentration 32.1 32.0 - 35.7 gm/dL [facility] Platelet 283 145 - 357 x10(3)/mc L [facility] RDW Standard Deviation 54.0(H) 36.0 - 45.0 fL [facility] RDW coefficient of variation 15.7(H) 11.4 - 13.8 % [facility] Mean Platelet Volume 8.6 7.6 - 12.9 fL [facility] NRBC% auto 0.0 % [facility] NRBC Absolute 0.000 0.000 - 0.000 x10(3)/mc L [facility] Blood specimen (specimen) 04/24/2018 4:17 AM EDT 04/24/2018 4:40 AM EDT Narrative Resulting Agency Comment Spec In Lab Apple Gutierrez MD HEMATOLOGY ORDERABLE S [facility] [place] [address] * (ABNORMAL) Basic Metabolic Panel (non-fasting) (04/24/2018 4:17 AM EDT) Glucose 93 65 - 199 mg/dL [facility] Comment:Diabetes: >=200 mg/d L plus symptoms Blood Urea Nitrogen 38(H) 10 - 20 mg/dL [facility] Creatinine 2.74(H) 0.80 - 1.50 mg/dL [facility] Sodium 138 135 - 145 mmol/L [facility] Potassium 5.2(H) 3.5 - 5.0 mmol/L [facility] Comment: Please note: ??Patients with WBC >100,000 may have falsely elevated Potassium levels. ??For accurate Potassium quantification in these patients send serum separator tube (gold top) for subsequent determinations. ??Contact the Clinical Chemistry Laboratory if there are any questions. Chloride 108(H) 98 - 107 mmol/L [facility] Carbon Dioxide 20(L) 22 - 31 mmol/L [facility] Anion Gap 10 5 - 15 mmol/L [facility] Calcium 8.0(L) 8.5 - 10.5 mg/dL [facility] Est Glomerular Filtration Rate 25(L) >=60 mL/min/1. 73 m?? [facility] Comment: The eGFR was calculated using the CKD-EPI equation. As with all creatinine based estimates of kidney function, eGFR values calculated with the CKD-EPI equation are not accurate in patients with acute kidney failure, extremes of body mass or the acutely ill. [email or web address] eGFR 29(L) >=60 mL/min/1. 73 m?? [facility] Comment: The eGFR was calculated using the CKD-EPI equation. As with all creatinine based estimates of kidney function, eGFR values calculated with the CKD-EPI equation are not accurate in patients with acute kidney failure, extremes of body mass or the acutely ill. [email or web address] Blood specimen (specimen) 04/24/2018 4:17 AM EDT 04/24/2018 4:40 AM EDT Narrative Resulting Agency Comment Spec In Lab Hay Sparks MD CHEMISTRY ORDERABLES Performing Organization Address City/State/[facility] Co de Phone Number [facility] [place] [address] * Differential, Automated (04/23/2018 4:56 AM EDT) Neutrophil % 61.5 % [facility] Neutrophil Absolute 3.19 1.70 - 6.10 x10(3)/[facility] Lymph % 22.2 % [facility] Lymphocytes Abs 1.2 0.9 - 3.2 x10(3)/[facility] Monocyte % 9.5 % [facility] Monocyte Abs 0.5 0.3 - 0.9 x10(3)/[facility] Eos % 5.6 % [facility] Eosinophils Abs 0.3 0.0 - 0.4 x10(3)/[facility] Basophil % 0.8 % [facility] Baso Absolute 0.0 0.0 - 0.1 x10(3)/[facility] Immature Gran % 0.40 % [facility] Comment: Immature granulocytes(IG's)percentage and absolute count will include metamyelocytes, myelocytes, and promyelocytes. Blood smears from CBCs yielding IG's will be scanned manually for concordance. If this scan disagrees with the automated IG or if promyelocytes are noted, a manual differential will be performed. Immature Gran Absolute 0.02 0.00 - 0.04 x10(3)/[facility] Blood specimen (specimen) 04/23/2018 4:56 AM EDT 04/23/2018 5:25 AM EDT Narrative Resulting Agency Comment Spec In Lab Apple Gutierrez MD HEMATOLOGY ORDERABLE S [facility] [place] [address] * (ABNORMAL) Hemogram (04/23/2018 4:56 AM EDT) White Blood Cell 5.2 4.0 - 9.5 x10(3)/ L [facility] Red Blood Cell 2.60(L) 4.58 - 5.54 x10(6)/mc L [facility] Hemoglobin 8.0(L) 13.7 - 16.5 gm/dL [facility] Hematocrit 24.3(L) 40.5 - 48.5 % [facility] Mean Cell Volume 93.5(H) 82.9 - 93.1 fL [facility] Mean Cell Hemoglobin 30.8 27.5 - 32.1 pg [facility] Mean Cell Hemoglobin Concentration 32.9 32.0 - 35.7 gm/dL [facility] Platelet 317 145 - 357 x10(3)/mc L [facility] RDW Standard Deviation 54.2(H) 36.0 - 45.0 fL [facility] RDW coefficient of variation 15.9(H) 11.4 - 13.8 % [facility] Mean Platelet Volume 8.5 7.6 - 12.9 fL [facility] NRBC% auto 0.0 % [facility] NRBC Absolute 0.000 0.000 - 0.000 x10(3)/mc L [facility] Blood specimen (specimen) 04/23/2018 4:56 AM EDT 04/23/2018 5:25 AM EDT Narrative Resulting Agency Comment Spec In Lab Apple Gutierrez MD HEMATOLOGY ORDERABLE S [facility] [place] [address] * (ABNORMAL) Basic Metabolic Panel (non-fasting) (04/23/2018 4:56 AM EDT) Glucose 96 65 - 199 mg/dL [facility] Comment:Diabetes: >=200 mg/d L plus symptoms Blood Urea Nitrogen 36(H) 10 - 20 mg/dL [facility] Creatinine 2.49(H) 0.80 - 1.50 mg/dL [facility] Sodium 137 135 - 145 mmol/L [facility] Potassium 4.9 3.5 - 5.0 mmol/L [facility] Comment: Please note: ??Patients with WBC >100,000 may have falsely elevated Potassium levels. ??For accurate Potassium quantification in these patients send serum separator tube (gold top) for subsequent determinations. ??Contact the Clinical Chemistry Laboratory if there are any questions. Chloride 103 98 - 107 mmol/L [facility] Carbon Dioxide 20(L) 22 - 31 mmol/L [facility] Anion Gap 14 5 - 15 mmol/L [facility] Calcium 8.1(L) 8.5 - 10.5 mg/dL [facility] Est Glomerular Filtration Rate 28(L) >=60 mL/min/1. 73 m?? [facility] Comment: The eGFR was calculated using the CKD-EPI equation. As with all creatinine based estimates of kidney function, eGFR values calculated with the CKD-EPI equation are not accurate in patients with acute kidney failure, extremes of body mass or the acutely ill. [email or web address] eGFR 32(L) >=60 mL/min/1. 73 m?? [facility] Comment: The eGFR was calculated using the CKD-EPI equation. As with all creatinine based estimates of kidney function, eGFR values calculated with the CKD-EPI equation are not accurate in patients with acute kidney failure, extremes of body mass or the acutely ill. [email or web address] Blood specimen (specimen) 04/23/2018 4:56 AM EDT 04/23/2018 5:25 AM EDT Narrative Resulting Agency Comment Spec In Lab Hay Sparks MD CHEMISTRY ORDERABLES Performing Organization Address City/State/[facility] Co de Phone Number [facility] [place] [address] * Differential, Automated (04/22/2018 5:34 AM EDT) Neutrophil % 67.1 % [facility] Neutrophil Absolute 3.67 1.70 - 6.10 x10(3)/[facility] Lymph % 17.3 % [facility] Lymphocytes Abs 1.0 0.9 - 3.2 x10(3)/[facility] Monocyte % 10.0 % [facility] Monocyte Abs 0.6 0.3 - 0.9 x10(3)/[facility] Eos % 4.7 % [facility] Eosinophils Abs 0.3 0.0 - 0.4 x10(3)/[facility] Basophil % 0.7 % [facility] Baso Absolute 0.0 0.0 - 0.1 x10(3)/[facility] Immature Gran % 0.20 % [facility] Comment: Immature granulocytes(IG's)percentage and absolute count will include metamyelocytes, myelocytes, and promyelocytes. Blood smears from CBCs yielding IG's will be scanned manually for concordance. If this scan disagrees with the automated IG or if promyelocytes are noted, a manual differential will be performed. Immature Gran Absolute 0.01 0.00 - 0.04 x10(3)/[facility] Blood specimen (specimen) 04/22/2018 5:34 AM EDT 04/22/2018 5:51 AM EDT Narrative Resulting Agency Comment Spec In Lab Apple Gutierrez MD HEMATOLOGY ORDERABLE S Performing Organization Address City/State/[facility] Co de Phone Number [facility] [place] [address] * (ABNORMAL) Hemogram (04/22/2018 5:34 AM EDT) White Blood Cell 5.5 4.0 - 9.5 x10(3)/[facility] Red Blood Cell 2.62(L) 4.58 - 5.54 x10(6)/[facility] Hemoglobin 8.0(L) 13.7 - 16.5 gm/dL [facility] Hematocrit 24.8(L) 40.5 - 48.5 % [facility] Mean Cell Volume 94.7(H) 82.9 - 93.1 fL [facility] Mean Cell Hemoglobin 30.5 27.5 - 32.1 pg [facility] Mean Cell Hemoglobin Concentration 32.3 32.0 - 35.7 gm/dL [facility] Platelet 289 145 - 357 x10(3)/[facility] RDW Standard Deviation 56.7(H) 36.0 - 45.0 fL [facility] RDW coefficient of variation 16.2(H) 11.4 - 13.8 % [facility] Mean Platelet Volume 8.6 7.6 - 12.9 fL [facility] NRBC% auto 0.0 % [facility] NRBC Absolute 0.000 0.000 - 0.000 x10(3)/mc L [facility] Blood specimen (specimen) 04/22/2018 5:34 AM EDT 04/22/2018 5:51 AM EDT Narrative Resulting Agency Comment Spec In Lab Apple Gutierrez MD HEMATOLOGY ORDERABLE S [facility] [place] [address] * (ABNORMAL) Basic Metabolic Panel (non-fasting) (04/22/2018 5:34 AM EDT) Glucose 100 65 - 199 mg/dL [facility] Comment:Diabetes: >=200 mg/d L plus symptoms Blood Urea Nitrogen 38(H) 10 - 20 mg/dL [facility] Creatinine 2.30(H) 0.80 - 1.50 mg/dL [facility] Sodium 138 135 - 145 mmol/L [facility] Potassium 5.3(H) 3.5 - 5.0 mmol/L [facility] Comment: Please note: ??Patients with WBC >100,000 may have falsely elevated Potassium levels. ??For accurate Potassium quantification in these patients send serum separator tube (gold top) for subsequent determinations. ??Contact the Clinical Chemistry Laboratory if there are any questions. Chloride 106 98 - 107 mmol/L [facility] Carbon Dioxide 19(L) 22 - 31 mmol/L [facility] Anion Gap 13 5 - 15 mmol/L [facility] Calcium 8.0(L) 8.5 - 10.5 mg/dL [facility] Est Glomerular Filtration Rate 31(L) >=60 mL/min/1. 73 m?? [facility] Comment: The eGFR was calculated using the CKD-EPI equation. As with all creatinine based estimates of kidney function, eGFR values calculated with the CKD-EPI equation are not accurate in patients with acute kidney failure, extremes of body mass or the acutely ill. [email or web address] eGFR 35(L) >=60 mL/min/1. 73 m?? [facility] Comment: The eGFR was calculated using the CKD-EPI equation. As with all creatinine based estimates of kidney function, eGFR values calculated with the CKD-EPI equation are not accurate in patients with acute kidney failure, extremes of body mass or the acutely ill. [email or web address] Blood specimen (specimen) 04/22/2018 5:34 AM EDT 04/22/2018 5:51 AM EDT Narrative Resulting Agency Comment Spec In Lab Hay Sparks MD CHEMISTRY ORDERABLES [facility] [place] [address] * Blood culture (04/21/2018 6:05 AM EDT) Blood Culture No growth at 5 days. [facility] Blood specimen (specimen) STRUCTURE OF RIGHT HAND / Unknown 04/21/2018 6:05 AM EDT 04/21/2018 8:01 AM EDT Narrative Resulting Agency Comment Spec In Lab Chase Olvera MD MICROBIOLOGY - BL OOD ORDERABLES [facility] [place] [address] * Blood culture (04/21/2018 5:50 AM EDT) Blood Culture No growth at 5 days. [facility] Blood specimen (specimen) ANTECUBITAL REGION STRUCTURE / Unknown 04/21/2018 5:50 AM EDT 04/21/2018 7:59 AM EDT Narrative Resulting Agency Comment Spec In Lab Chase Olvera MD MICROBIOLOGY - [place] [address] * Differential, Automated (04/21/2018 5:50 AM EDT) Neutrophil % 66.9 % [facility] Neutrophil Absolute 3.88 1.70 - 6.10 x10(3)/[facility] Lymph % 16.8 % [facility] Lymphocytes Abs 1.0 0.9 - 3.2 x10(3)/[facility] Monocyte % 8.8 % [facility] Monocyte Abs 0.5 0.3 - 0.9 x10(3)/[facility] Eos % 5.9 % [facility] Eosinophils Abs 0.3 0.0 - 0.4 x10(3)/[facility] Basophil % 0.9 % [facility] Baso Absolute 0.0 0.0 - 0.1 x10(3)/[facility] Immature Gran % 0.70 % [facility] Comment: Immature granulocytes(IG's)percentage and absolute count will include metamyelocytes, myelocytes, and promyelocytes. Blood smears from CBCs yielding IG's will be scanned manually for concordance. If this scan disagrees with the automated IG or if promyelocytes are noted, a manual differential will be performed. Immature Gran Absolute 0.04 0.00 - 0.04 x10(3)/[facility] Blood specimen (specimen) 04/21/2018 5:50 AM EDT 04/21/2018 6:29 AM EDT Narrative Resulting Agency Comment Spec In Lab Apple Gutierrez MD HEMATOLOGY ORDERABLE S [facility] [place] [address] * (ABNORMAL) Hemogram (04/21/2018 5:50 AM EDT) [facility] White Blood Cell 5.8 4.0 - 9.5 x10(3)/[facility] Red Blood Cell 2.55(L) 4.58 - 5.54 x10(6)/[facility] Hemoglobin 7.7(L) 13.7 - 16.5 gm/dL [facility] Hematocrit 24.2(L) 40.5 - 48.5 % [facility] Mean Cell Volume 94.9(H) 82.9 - 93.1 [facility] Mean Cell Hemoglobin 30.2 27.5 - 32.1 pg [facility] Mean Cell Hemoglobin Concentration 31.8(L) 32.0 - 35.7 gm/dL [facility] Platelet 316 145 - 357 x10(3)/[facility] RDW Standard Deviation 56.2(H) 36.0 - 45.0 [facility] RDW coefficient of variation 16.0(H) 11.4 - 13.8 % [facility] Mean Platelet Volume 8.2 7.6 - 12.9 [facility] NRBC% auto 0.0 % [facility] NRBC Absolute 0.000 0.000 - 0.000 x10(3)/[facility] Blood specimen (specimen) 04/21/2018 5:50 AM EDT 04/21/2018 6:29 AM EDT Narrative Resulting Agency Comment Spec In Lab Apple Gutierrez MD HEMATOLOGY ORDERABLE S [facility] [place] [address] * (ABNORMAL) Basic Metabolic Panel (non-fasting) (04/21/2018 5:50 AM EDT) Glucose 97 65 - 199 mg/dL [facility] Comment:Diabetes: >=200 mg/d L plus symptoms Blood Urea Nitrogen 34(H) 10 - 20 mg/dL [facility] Creatinine 2.30(H) 0.80 - 1.50 mg/dL [facility] Sodium 138 135 - 145 mmol/L [facility] Potassium 4.8 3.5 - 5.0 mmol/L [facility] Comment: Please note: ??Patients with WBC >100,000 may have falsely elevated Potassium levels. ??For accurate Potassium quantification in these patients send serum separator tube (gold top) for subsequent determinations. ??Contact the Clinical Chemistry Laboratory if there are any questions. Chloride 105 98 - 107 mmol/L [facility] Carbon Dioxide 21(L) 22 - 31 mmol/L [facility] Anion Gap 12 5 - 15 mmol/L [facility] Calcium 8.1(L) 8.5 - 10.5 mg/dL [facility] Est Glomerular Filtration Rate 31(L) >=60 mL/min/1. 73 m?? [facility] Comment: The eGFR was calculated using the CKD-EPI equation. As with all creatinine based estimates of kidney function, eGFR values calculated with the CKD-EPI equation are not accurate in patients with acute kidney failure, extremes of body mass or the acutely ill. [email or web address] eGFR 35(L) >=60 mL/min/1. 73 m?? [facility] Comment: The eGFR was calculated using the CKD-EPI equation. As with all creatinine based estimates of kidney function, eGFR values calculated with the CKD-EPI equation are not accurate in patients with acute kidney failure, extremes of body mass or the acutely ill. [email or web address] Blood specimen (specimen) 04/21/2018 5:50 AM EDT 04/21/2018 6:29 AM EDT Narrative Resulting Agency Comment Spec In Lab Hay Sparks MD CHEMISTRY ORDERABLES Performing Organization Address City/[facility]/ZIP Co de Phone Number [facility] [place] [address] * Differential, Automated (04/20/2018 5:48 AM EDT) Pathologist [facility] Neutrophil % 74.0 % [facility] Neutrophil Absolute 5.39 1.70 - 6.10 x10(3)/[facility] Lymph % 12.8 % [facility] Lymphocytes Abs 0.9 0.9 - 3.2 x10(3)/[facility] Monocyte % 8.2 % [facility] Monocyte Abs 0.6 0.3 - 0.9 x10(3)/[facility] Eos % 4.0 % [facility] Eosinophils Abs 0.3 0.0 - 0.4 x10(3)/[facility] Basophil % 0.5 % [facility] Baso Absolute 0.0 0.0 - 0.1 x10(3)/[facility] Immature Gran % 0.50 % [facility] Comment: Immature granulocytes(IG's)percentage and absolute count will include metamyelocytes, myelocytes, and promyelocytes. Blood smears from CBCs yielding IG's will be scanned manually for concordance. If this scan disagrees with the automated IG or if promyelocytes are noted, a manual differential will be performed. Immature Gran Absolute 0.04 0.00 - 0.04 x10(3)/[facility] Blood specimen (specimen) 04/20/2018 5:48 AM EDT 04/20/2018 6:06 AM EDT Narrative Resulting Agency Comment Spec In Lab Apple Gutierrez MD HEMATOLOGY ORDERABLE S [facility] [place] [address] * (ABNORMAL) Hemogram (04/20/2018 5:48 AM EDT) White Blood Cell 7.3 4.0 - 9.5 x10(3)/mc L [facility] Red Blood Cell 2.53(L) 4.58 - 5.54 x10(6)/mc L [facility] Hemoglobin 7.8(L) 13.7 - 16.5 gm/dL [facility] Hematocrit 23.7(L) 40.5 - 48.5 % [facility] Mean Cell Volume 93.7(H) 82.9 - 93.1 fL [facility] Mean Cell Hemoglobin 30.8 27.5 - 32.1 pg [facility] Mean Cell Hemoglobin Concentration 32.9 32.0 - 35.7 gm/dL [facility] Platelet 302 145 - 357 x10(3)/[facility] RDW Standard Deviation 54.4(H) 36.0 - 45.0 [facility] RDW coefficient of variation 15.9(H) 11.4 - 13.8 % [facility] Mean Platelet Volume 8.5 7.6 - 12.9 [facility] NRBC% auto 0.0 % [facility] NRBC Absolute 0.000 0.000 - 0.000 x10(3)/ L [facility] Blood specimen (specimen) 04/20/2018 5:48 AM EDT 04/20/2018 6:06 AM EDT Narrative Resulting Agency Comment Spec In Lab Apple Gutierrez MD HEMATOLOGY ORDERABLE S [facility] [place] [address] * APTT (04/20/2018 5:48 AM EDT) Partial [...] ORDERA BLES Performing Organization Address [facility] de Phone Number [facility] [place] [address] * Prothrombin Time (04/20/2018 5:48 AM EDT) Prothrombin Time 11.6 9.4 - 12.5 sec [facility] ORDERA BLES Performing Organization Address [facility] de Phone Number [facility] [place] [address] * (ABNORMAL) Basic Metabolic Panel (non-fasting) (04/20/2018 5:48 AM EDT) Glucose 103 65 - 199 mg/dL [facility] Comment:Diabetes: >=200 mg/d L plus symptoms Blood Urea Nitrogen 33(H) 10 - 20 mg/dL [facility] Creatinine 2.38(H) 0.80 - 1.50 mg/dL [facility] Sodium 138 135 - 145 mmol/L [facility] Potassium 4.7 3.5 - 5.0 mmol/L [facility] Comment: Please note: ??Patients with WBC >100,000 may have falsely elevated Potassium levels. ??For accurate Potassium quantification in these patients send serum separator tube (gold top) for subsequent determinations. ??Contact the Clinical Chemistry Laboratory if there are any questions. Chloride 104 98 - 107 mmol/L [facility] Carbon Dioxide 21(L) 22 - 31 mmol/L [facility] Anion Gap 13 5 - 15 mmol/L [facility] Calcium 8.0(L) 8.5 - 10.5 mg/dL [facility] Est Glomerular Filtration Rate 29(L) >=60 mL/min/1. 73 m?? [facility] Comment: The eGFR was calculated using the CKD-EPI equation. As with all creatinine based estimates of kidney function, eGFR values calculated with the CKD-EPI equation are not accurate in patients with acute kidney failure, extremes of body mass or the acutely ill. [email or web address] eGFR 34(L) >=60 mL/min/1. 73 m?? [facility] Comment: The eGFR was calculated using the CKD-EPI equation. As with all creatinine based estimates of kidney function, eGFR values calculated with the CKD-EPI equation are not accurate in patients with acute kidney failure, extremes of body mass or the acutely ill. [email or web address] Blood specimen (specimen) 04/20/2018 5:48 AM EDT 04/20/2018 6:06 AM EDT Narrative Resulting Agency Comment Spec In Lab Hay Sparks MD CHEMISTRY ORDERABLES [facility] [place] [address] * Anaerobic Culture (04/19/2018 9:25 AM EDT) Anaerobic Culture No anaerobic organisms isolated [facility] Skin (tissue) specimen (specimen) 04/19/2018 9:25 AM EDT 04/19/2018 9:37 AM EDT Comment:LEFT ARM SNUFFBOX PS EUDOANEURYSM FOR AEROBIC, ANAEROBIC, GRAM STAIN Narrative Resulting Agency Comment Spec In Lab Odalis Elias MD MICROBIOLOGY - GENERAL ORDERABLES Performing Organization Address City/[facility]/ZIP Co de Phone Number [facility] [place] [address] * (ABNORMAL) Tissue culture (04/19/2018 9:25 AM EDT) Pathologist [facility] Tissue Culture Rare Corynebacterium species : possible contaminant(A) [facility] Gram Stain Many Neutrophils seen Rare Gram Negative Rods seen (A) [facility] Organism Gram Negative Rods(A) [facility] Skin (tissue) specimen (specimen) 04/19/2018 9:25 AM EDT 04/19/2018 9:37 AM EDT Comment:LEFT ARM SNUFFBOX PS EUDOANEURYSM FOR AEROBIC, ANAEROBIC, GRAM STAIN Narrative Resulting Agency Comment Spec In Lab Odalis Elias MD MICROBIOLOGY - GENERAL ORDERABLES Performing Organization Address City/[facility] Co de Phone Number [facility] [place] [address] * Differential, Automated (04/19/2018 6:25 AM EDT) Neutrophil % 68.5 % [facility] Neutrophil Absolute 3.75 1.70 - 6.10 x10(3)/[facility] Lymph % 17.3 % [facility] Lymphocytes Abs 1.0 0.9 - 3.2 x10(3)/[facility] Monocyte % 9.3 % [facility] Monocyte Abs 0.5 0.3 - 0.9 x10(3)/[facility] Eos % 4.0 % [facility] Eosinophils Abs 0.2 0.0 - 0.4 x10(3)/[facility] Basophil % 0.7 % [facility] Baso Absolute 0.0 0.0 - 0.1 x10(3)/[facility] Immature Gran % 0.20 % [facility] Comment: Immature granulocytes(IG's)percentage and absolute count will include metamyelocytes, myelocytes, and promyelocytes. Blood smears from CBCs yielding IG's will be scanned manually for concordance. If this scan disagrees with the automated IG or if promyelocytes are noted, a manual differential will be performed. Immature Gran Absolute 0.01 0.00 - 0.04 x10(3)/[facility] Blood specimen (specimen) 04/19/2018 6:25 AM EDT 04/19/2018 6:32 AM EDT Narrative Resulting Agency Comment Spec In Lab Apple Gutierrez MD HEMATOLOGY ORDERABLE S [facility] [place] [address] * (ABNORMAL) Hemogram (04/19/2018 6:25 AM EDT) White Blood Cell 5.5 4.0 - 9.5 x10(3)/[facility]AT[facility] Red Blood Cell 2.52(L) 4.58 - 5.54 x10(6)/[facility] Hemoglobin 7.7(L) 13.7 - 16.5 gm/dL [facility] Hematocrit 23.3(L) 40.5 - 48.5 % [facility] Mean Cell Volume 92.5 82.9 - 93.1 fL [facility] Mean Cell Hemoglobin 30.6 27.5 - 32.1 pg [facility] Mean Cell Hemoglobin Concentration 33.0 32.0 - 35.7 gm/dL [facility] Platelet 274 145 - 357 x10(3)/[facility] LABORAT[facility] RDW Standard Deviation 53.1(H) 36.0 - 45.0 fL [facility] RDW coefficient of variation 15.6(H) 11.4 - 13.8 % [facility] Mean Platelet Volume 8.3 7.6 - 12.9 fL [facility] NRBC% auto 0.0 % [facility] NRBC Absolute 0.000 0.000 - 0.000 x10(3)/mc L [facility] Blood specimen (specimen) 04/19/2018 6:25 AM EDT 04/19/2018 6:32 AM EDT Narrative Resulting Agency Comment Spec In Lab Apple Gutierrez MD HEMATOLOGY ORDERABLE S Performing Organization Address [facility]/ZIP Co de Phone Number [facility] [place] [address] * APTT (04/19/2018 6:25 AM EDT) Partial [...] HEMATOLOGY ORDERA BLES Performing Organization Address City/[facility] Co de Phone Number [facility] [place] [address] * Prothrombin Time (04/19/2018 6:25 AM EDT) Prothrombin Time 11.5 9.4 - 12.5 sec [facility] Lab Chase Olvera MD HEMATOLOGY ORDERA BLES [facility] [place] [address] * (ABNORMAL) Basic Metabolic Panel (non-fasting) (04/19/2018 6:25 AM EDT) Glucose 100 65 - 199 mg/dL [facility] Comment:Diabetes: >=200 mg/d L plus symptoms Blood Urea Nitrogen 35(H) 10 - 20 mg/dL [facility] Creatinine 2.12(H) 0.80 - 1.50 mg/dL [facility] Sodium 137 135 - 145 mmol/L [facility] Potassium 4.7 3.5 - 5.0 mmol/L [facility] Comment: Please note: ??Patients with WBC >100,000 may have falsely elevated Potassium levels. ??For accurate Potassium quantification in these patients send serum separator tube (gold top) for subsequent determinations. ??Contact the Clinical Chemistry Laboratory if there are any questions. Chloride 104 98 - 107 mmol/L [facility] Carbon Dioxide 21(L) 22 - 31 mmol/L [facility] Anion Gap 12 5 - 15 mmol/L [facility] Calcium 8.0(L) 8.5 - 10.5 mg/dL [facility] Est Glomerular Filtration Rate 34(L) >=60 mL/min/1. 73 m?? [facility] Comment: The eGFR was calculated using the CKD-EPI equation. As with all creatinine based estimates of kidney function, eGFR values calculated with the CKD-EPI equation are not accurate in patients with acute kidney failure, extremes of body mass or the acutely ill. [email or web address] eGFR 39(L) >=60 mL/min/1. 73 m?? [facility] Comment: The eGFR was calculated using the CKD-EPI equation. As with all creatinine based estimates of kidney function, eGFR values calculated with the CKD-EPI equation are not accurate in patients with acute kidney failure, extremes of body mass or the acutely ill. [email or web address] Blood specimen (specimen) 04/19/2018 6:25 AM EDT 04/19/2018 6:32 AM EDT Narrative Resulting Agency Comment Spec In Lab Hay Sparks MD CHEMISTRY ORDERABLES Performing Organization Address [facility] de Phone Number [facility] [place] [address] * Tacrolimus level (04/19/2018 6:25 AM EDT) Tacrolimus 2.8 ng/mL [facility] Comment: Trough therapeutic: ??5-15 ng/mL Performed by ultra-performance liquid chromatography tandem mass spectrometry (UPLCMS/MS). This test was developed and its performance characteristics determined by [facility]. It has not been cleared or [...] ORDERAB LES Performing Organization Address [facility] Co de Phone Number [facility] [place] [address] * AVF/Established Access Evaluation (04/18/2018 1:29 PM EDT) VB Text Report Department: Vascular Surgery Lab Patient: [id number] (CHRISTY AMBROSE) CPT: 73962 ICD10: N18.6;R57.8 Referring Physician: CHASE OLVERA ?? [...] 5:26 AM EDT) Neutrophil % 67.3 % [facility] Neutrophil Absolute 4.29 1.70 - 6.10 x10(3)/[facility] Lymph % 19.6 % [facility] Lymphocytes Abs 1.2 0.9 - 3.2 x10(3)/[facility] Monocyte % 8.2 % [facility] Monocyte Abs 0.5 0.3 - 0.9 x10(3)/[facility] Eos % 3.9 % [facility] Eosinophils Abs 0.2 0.0 - 0.4 x10(3)/[facility] Basophil % 0.5 % [facility] Baso Absolute 0.0 0.0 - 0.1 x10(3)/[facility] Immature Gran % 0.50 % [facility] Comment: Immature granulocytes(IG's)percentage and absolute count will include metamyelocytes, myelocytes, and promyelocytes. Blood smears from CBCs yielding IG's will be scanned manually for concordance. If this scan disagrees with the automated IG or if promyelocytes are noted, a manual differential will be performed. Immature Gran Absolute 0.03 0.00 - 0.04 x10(3)/[facility] Blood specimen (specimen) 04/18/2018 5:26 AM EDT 04/18/2018 5:39 AM EDT Narrative Resulting Agency Comment Spec In Lab Apple Gutierrez MD HEMATOLOGY ORDERABLE S [facility] [place] [address] * (ABNORMAL) Hemogram (04/18/2018 5:26 AM EDT) White Blood Cell 6.4 4.0 - 9.5 x10(3)/mc L [facility] Red Blood Cell 2.65(L) 4.58 - 5.54 x10(6)/mc L [facility] Hemoglobin 8.0(L) 13.7 - 16.5 gm/dL [facility] Hematocrit 24.6(L) 40.5 - 48.5 % [facility] Mean Cell Volume 92.8 82.9 - 93.1 fL [facility] Mean Cell Hemoglobin 30.2 27.5 - 32.1 pg [facility] Mean Cell Hemoglobin Concentration 32.5 32.0 - 35.7 gm/dL [facility] Platelet 305 145 - 357 x10(3)/mc L [facility] RDW Standard Deviation 53.2(H) 36.0 - 45.0 fL [facility] RDW coefficient of variation 15.7(H) 11.4 - 13.8 % [facility] Mean Platelet Volume 8.3 7.6 - 12.9 fL [facility] NRBC% auto 0.0 % [facility] NRBC Absolute 0.000 0.000 - 0.000 x10(3)/mc L [facility] Blood specimen (specimen) 04/18/2018 5:26 AM EDT 04/18/2018 5:39 AM EDT Narrative Resulting Agency Comment Spec In Lab Apple Gutierrez MD HEMATOLOGY ORDERABLE S Performing Organization Address [facility]/ZIP Co de Phone Number [facility] [place] [address] * APTT (04/18/2018 5:26 AM EDT) Partial [...] HEMATOLOGY ORDERA BLES Performing Organization Address City/[facility]/ZIP Co de Phone Number [facility] [place] [address] * Prothrombin Time (04/18/2018 5:26 AM EDT) Prothrombin Time 11.2 9.4 - 12.5 sec [facility] Lab Chase Olvera MD HEMATOLOGY ORDERA BLES [facility] [place] [address] * (ABNORMAL) Basic Metabolic Panel (non-fasting) (04/18/2018 5:26 AM EDT) Glucose 103 65 - 199 mg/dL [facility] Comment:Diabetes: >=200 mg/d L plus symptoms Blood Urea Nitrogen 36(H) 10 - 20 mg/dL [facility] Creatinine 2.30(H) 0.80 - 1.50 mg/dL [facility] Sodium 135 135 - 145 mmol/L [facility] Potassium 4.3 3.5 - 5.0 mmol/L [facility] Comment: Please note: ??Patients with WBC >100,000 may have falsely elevated Potassium levels. ??For accurate Potassium quantification in these patients send serum separator tube (gold top) for subsequent determinations. ??Contact the Clinical Chemistry Laboratory if there are any questions. Chloride 104 98 - 107 mmol/L [facility] Carbon Dioxide 20(L) 22 - 31 mmol/L [facility] Anion Gap 11 5 - 15 mmol/L [facility] Calcium 8.3(L) 8.5 - 10.5 mg/dL [facility] Est Glomerular Filtration Rate 31(L) >=60 mL/min/1. 73 m?? [facility] Comment: The eGFR was calculated using the CKD-EPI equation. As with all creatinine based estimates of kidney function, eGFR values calculated with the CKD-EPI equation are not accurate in patients with acute kidney failure, extremes of body mass or the acutely ill. [email or web address] eGFR 35(L) >=60 mL/min/1. 73 m?? [facility] Comment: The eGFR was calculated using the CKD-EPI equation. As with all creatinine based estimates of kidney function, eGFR values calculated with the CKD-EPI equation are not accurate in patients with acute kidney failure, extremes of body mass or the acutely ill. [email or web address] Blood specimen (specimen) 04/18/2018 5:26 AM EDT 04/18/2018 5:39 AM EDT Narrative Resulting Agency Comment Spec In Lab Hay Sparks MD CHEMISTRY ORDERABLES Performing Organization Address City/[facility]/ZIP Co de Phone Number [facility] [place] [address] * ABORH Recheck Status (04/17/2018 9:07 AM EDT) ABORH Type Recheck Completed [facility] Blood specimen (specimen) 04/17/2018 9:07 AM EDT 04/17/2018 9:22 AM EDT Narrative Resulting Agency Comment Spec In Lab Tim Ogden MD BLOOD BANK LAB ORDOctaviano CALERO Performing Organization Address City/[facility]/ZIP Co de Phone Number [facility] [place] [address] * Antibody screen (04/17/2018 9:07 AM EDT) Ab Screen Interp Negative [facility] Expires at [id number] on: 04/20/2018 [facility] Blood specimen (specimen) 04/17/2018 9:07 AM EDT 04/17/2018 9:22 AM EDT Narrative Resulting Agency Comment Spec In Lab Tim Ogden MD BLOOD BANK LAB ORDE RABKAYDEN [facility] [place] [address] * ABO/Rh Typing (04/17/2018 9:07 AM EDT) ABORH Type A Pos [facility] Blood specimen (specimen) 04/17/2018 9:07 AM EDT 04/17/2018 9:22 AM EDT Narrative Resulting Agency Comment Spec In Lab Tim Ogden MD BLOOD BANK LAB RYAN CALERO Performing Organization Address City/[facility]/ZIP Co de Phone Number [facility] [place] [address] * Differential, Automated (04/17/2018 4:43 AM EDT) Pathologist [facility] Neutrophil % 64.8 % [facility] Neutrophil Absolute 3.62 1.70 - 6.10 x10(3)/[facility] Lymph % 18.6 % [facility] Lymphocytes Abs 1.0 0.9 - 3.2 x10(3)/[facility] Monocyte % 10.0 % [facility] Monocyte Abs 0.6 0.3 - 0.9 x10(3)/[facility] Eos % 5.0 % [facility] Eosinophils Abs 0.3 0.0 - 0.4 x10(3)/[facility] Basophil % 0.9 % [facility] Baso Absolute 0.0 0.0 - 0.1 x10(3)/[facility] Immature Gran % 0.70 % [facility] Comment: Immature granulocytes(IG's)percentage and absolute count will include metamyelocytes, myelocytes, and promyelocytes. Blood smears from CBCs yielding IG's will be scanned manually for concordance. If this scan disagrees with the automated IG or if promyelocytes are noted, a manual differential will be performed. Immature Gran Absolute 0.04 0.00 - 0.04 x10(3)/[facility] Blood specimen (specimen) 04/17/2018 4:43 AM EDT 04/17/2018 5:09 AM EDT Narrative Resulting Agency Comment Spec In Lab Apple Gutierrez MD HEMATOLOGY ORDERABLE S [facility] [place] [address] * (ABNORMAL) Hemogram (04/17/2018 4:43 AM EDT) White Blood Cell 5.6 4.0 - 9.5 x10(3)/[facility]ORAT[facility] Red Blood Cell 2.47(L) 4.58 - 5.54 x10(6)/[facility] Hemoglobin 7.5(L) 13.7 - 16.5 gm/dL [facility] Hematocrit 22.9(L) 40.5 - 48.5 % [facility] Mean Cell Volume 92.7 82.9 - 93.1 [facility] Mean Cell Hemoglobin 30.4 27.5 - 32.1 pg [facility] Mean Cell Hemoglobin Concentration 32.8 32.0 - 35.7 gm/dL [facility] Platelet 282 145 - 357 x10(3)/[facility] RDW Standard Deviation 53.0(H) 36.0 - 45.0 [facility] RDW coefficient of variation 15.6(H) 11.4 - 13.8 % [facility] Mean Platelet Volume 8.3 7.6 - 12.9 [facility] NRBC% auto 0.0 % [facility] NRBC Absolute 0.000 0.000 - 0.000 x10(3)/[facility] Blood specimen (specimen) 04/17/2018 4:43 AM EDT 04/17/2018 5:09 AM EDT Narrative Resulting Agency Comment Spec In Lab Apple Gutierrez MD HEMATOLOGY ORDERABLE S Performing Organization Address [facility] Co de Phone Number [facility] [place] [address] * APTT (04/17/2018 4:43 AM EDT) Partial [...] HEMATOLOGY ORDERA BLES Performing Organization Address [facility] Co de Phone Number [facility] [place] [address] * Prothrombin Time (04/17/2018 4:43 AM EDT) Prothrombin Time 11.7 9.4 - 12.5 sec [facility] ORDERA BLES Performing Organization Address [facility] Co de Phone Number [facility] [place] [address] * (ABNORMAL) Basic Metabolic Panel (non-fasting) (04/17/2018 4:43 AM EDT) Glucose 100 65 - 199 mg/dL [facility] Comment:Diabetes: >=200 mg/d L plus symptoms Blood Urea Nitrogen 32(H) 10 - 20 mg/dL [facility] Creatinine 2.27(H) 0.80 - 1.50 mg/dL [facility] Sodium 135 135 - 145 mmol/L [facility] Potassium 4.1 3.5 - 5.0 mmol/L [facility] Comment: Please note: ??Patients with WBC >100,000 may have falsely elevated Potassium levels. ??For accurate Potassium quantification in these patients send serum separator tube (gold top) for subsequent determinations. ??Contact the Clinical Chemistry Laboratory if there are any questions. Chloride 104 98 - 107 mmol/L [facility] Carbon Dioxide 19(L) 22 - 31 mmol/L [facility] Anion Gap 12 5 - 15 mmol/L [facility] Calcium 7.7(L) 8.5 - 10.5 mg/dL [facility] Est Glomerular Filtration Rate 31(L) >=60 mL/min/1. 73 m?? [facility] Comment: The eGFR was calculated using the CKD-EPI equation. As with all creatinine based estimates of kidney function, eGFR values calculated with the CKD-EPI equation are not accurate in patients with acute kidney failure, extremes of body mass or the acutely ill. [email or web address] [facility] eGFR 36(L) >=60 mL/min/1. 73 m?? [facility] Comment: The eGFR was calculated using the CKD-EPI equation. As with all creatinine based estimates of kidney function, eGFR values calculated with the CKD-EPI equation are not accurate in patients with acute kidney failure, extremes of body mass or the acutely ill. [email or web address] Blood specimen (specimen) 04/17/2018 4:43 AM EDT 04/17/2018 5:09 AM EDT Narrative Resulting Agency Comment Spec In Lab Hay Sparks MD CHEMISTRY ORDERABLES Performing Organization Address City/[facility]/ZIP [place] [address] * (ABNORMAL) Differential, Automated (04/16/2018 4:17 AM EDT) Neutrophil % 59.4 % [facility] Neutrophil Absolute 3.07 1.70 - 6.10 x10(3)/ L [facility] Lymph % 24.4 % [facility] Lymphocytes Abs 1.3 0.9 - 3.2 x10(3)/[facility] Monocyte % 10.3 % [facility] Monocyte Abs 0.5 0.3 - 0.9 x10(3)/[facility] Eos % 4.5 % [facility] Eosinophils Abs 0.2 0.0 - 0.4 x10(3)/[facility] Basophil % 0.4 % [facility] Baso Absolute 0.0 0.0 - 0.1 x10(3)/[facility] Immature Gran % 1.00 % [facility] Comment: Immature granulocytes(IG's)percentage and absolute count will include metamyelocytes, myelocytes, and promyelocytes. Blood smears from CBCs yielding IG's will be scanned manually for concordance. If this scan disagrees with the automated IG or if promyelocytes are noted, a manual differential will be performed. Immature Gran Absolute 0.05(H) 0.00 - 0.04 x10(3)/ L [facility] Blood specimen (specimen) 04/16/2018 4:17 AM EDT 04/16/2018 4:52 AM EDT Narrative Resulting Agency Comment Spec In Lab Apple Gutierrez MD HEMATOLOGY ORDERABLE S Performing Organization Address City/[facility]/ZIP Co de Phone Number [facility] [address] * (ABNORMAL) Hemogram (04/16/2018 4:17 AM EDT) White Blood Cell 5.2 4.0 - 9.5 x10(3)/[facility] Red Blood Cell 2.62(L) 4.58 - 5.54 x10(6)/[facility] Hemoglobin 7.9(L) 13.7 - 16.5 gm/dL [facility] Hematocrit 24.9(L) 40.5 - 48.5 % [facility] Mean Cell Volume 95.0(H) 82.9 - 93.1 [facility] Mean Cell Hemoglobin 30.2 27.5 - 32.1 pg [facility] Mean Cell Hemoglobin Concentration 31.7(L) 32.0 - 35.7 gm/dL [facility] Platelet 288 145 - 357 x10(3)/[facility] RDW Standard Deviation 52.6(H) 36.0 - 45.0 [facility] RDW coefficient of variation 15.4(H) 11.4 - 13.8 % [facility] Mean Platelet Volume 8.5 7.6 - 12.9 [facility] NRBC% auto 0.0 % [facility] NRBC Absolute 0.000 0.000 - 0.000 x10(3)/[facility] Blood specimen (specimen) 04/16/2018 4:17 AM EDT 04/16/2018 4:52 AM EDT Narrative Resulting Agency Comment Spec In Lab Apple Gutierrez MD HEMATOLOGY ORDERABLE S [facility] [place] [address] * APTT (04/16/2018 4:17 AM EDT) Pathologist [facility] Partial Thromboplastin Time 27 25 - 37 [...] ORDERA BLES Performing Organization Address [facility] de Phone Number [facility] [place] [address] * Prothrombin Time (04/16/2018 4:17 AM EDT) Prothrombin Time 11.5 9.4 - 12.5 sec [facility] [...] ORDERA BLES Performing Organization Address [facility] de Phone Number [facility] [place] [address] * (ABNORMAL) Basic Metabolic Panel (non-fasting) (04/16/2018 4:17 AM EDT) Glucose 108 65 - 199 mg/dL [facility] Comment:Diabetes: >=200 mg/d L plus symptoms Blood Urea Nitrogen 31(H) 10 - 20 mg/dL [facility] Creatinine 2.27(H) 0.80 - 1.50 mg/dL [facility] Sodium 135 135 - 145 mmol/L [facility] Potassium 4.0 3.5 - 5.0 mmol/L [facility] Comment: Please note: ??Patients with WBC >100,000 may have falsely elevated Potassium levels. ??For accurate Potassium quantification in these patients send serum separator tube (gold top) for subsequent determinations. ??Contact the Clinical Chemistry Laboratory if there are any questions. Chloride 103 98 - 107 mmol/L [facility] Carbon Dioxide 20(L) 22 - 31 mmol/L [facility] Anion Gap 12 5 - 15 mmol/L [facility] Calcium 7.7(L) 8.5 - 10.5 mg/dL [facility] Est Glomerular Filtration Rate 31(L) >=60 mL/min/1. 73 m?? [facility] Comment: The eGFR was calculated using the CKD-EPI equation. As with all creatinine based estimates of kidney function, eGFR values calculated with the CKD-EPI equation are not accurate in patients with acute kidney failure, extremes of body mass or the acutely ill. [email or web address] eGFR 36(L) >=60 mL/min/1. 73 m?? [facility] Comment: The eGFR was calculated using the CKD-EPI equation. As with all creatinine based estimates of kidney function, eGFR values calculated with the CKD-EPI equation are not accurate in patients with acute kidney failure, extremes of body mass or the acutely ill. [email or web address] Blood specimen (specimen) 04/16/2018 4:17 AM EDT 04/16/2018 4:52 AM EDT Narrative Resulting Agency Comment Spec In Lab Hay Sparks MD CHEMISTRY ORDERABLES [facility] [place] [address] * APTT (04/15/2018 4:57 AM EDT) Partial [...] ORDERA BLES Performing Organization Address [facility] Co de Phone Number [facility] [place] [address] * (ABNORMAL) Prothrombin Time (04/15/2018 4:57 AM EDT) Prothrombin Time 12.9(H) 9.4 - 12.5 sec [facility] International Normalization Ratio 1.2 [facility] Comment: An INR [...] ORDERA BLES Performing Organization Address [facility] Co de Phone Number [facility] [place] [address] * Differential, Automated (04/15/2018 4:47 AM EDT) Neutrophil % 59.8 % [facility] Neutrophil Absolute 2.98 1.70 - 6.10 x10(3)/[facility] Lymph % 22.4 % [facility] Lymphocytes Abs 1.1 0.9 - 3.2 x10(3)/[facility] Monocyte % 11.2 % [facility] Monocyte Abs 0.6 0.3 - 0.9 x10(3)/[facility] Eos % 5.6 % [facility] Eosinophils Abs 0.3 0.0 - 0.4 x10(3)/[facility] Basophil % 0.4 % [facility] Baso Absolute 0.0 0.0 - 0.1 x10(3)/[facility] Immature Gran % 0.60 % [facility] Comment: Immature granulocytes(IG's)percentage and absolute count will include metamyelocytes, myelocytes, and promyelocytes. Blood smears from CBCs yielding IG's will be scanned manually for concordance. If this scan disagrees with the automated IG or if promyelocytes are noted, a manual differential will be performed. Immature Gran Absolute 0.03 0.00 - 0.04 x10(3)/[facility] Blood specimen (specimen) 04/15/2018 4:47 AM EDT 04/15/2018 4:56 AM EDT Narrative Resulting Agency Comment Spec In Lab Apple Gutierrez MD HEMATOLOGY ORDERABLE S [facility] [place] [address] * (ABNORMAL) Hemogram (04/15/2018 4:47 AM EDT) White Blood Cell 5.0 4.0 - 9.5 x10(3)/mc L [facility] Red Blood Cell 2.48(L) 4.58 - 5.54 x10(6)/mc L [facility] Hemoglobin 7.5(L) 13.7 - 16.5 gm/dL [facility] Hematocrit 23.3(L) 40.5 - 48.5 % [facility] Mean Cell Volume 94.0(H) 82.9 - 93.1 fL [facility] Mean Cell Hemoglobin 30.2 27.5 - 32.1 pg [facility] Mean Cell Hemoglobin Concentration 32.2 32.0 - 35.7 gm/dL [facility] Platelet 224 145 - 357 x10(3)/mc L [facility] RDW Standard Deviation 52.9(H) 36.0 - 45.0 fL [facility] RDW coefficient of variation 15.4(H) 11.4 - 13.8 % [facility] Mean Platelet Volume 8.3 7.6 - 12.9 fL [facility] NRBC% auto 0.0 % [facility] NRBC Absolute 0.000 0.000 - 0.000 x10(3)/mc L [facility] Blood specimen (specimen) 04/15/2018 4:47 AM EDT 04/15/2018 4:56 AM EDT Narrative Resulting Agency Comment Spec In Lab Apple Gutierrez MD HEMATOLOGY ORDERABLE S [facility] [place] [address] * (ABNORMAL) Basic Metabolic Panel (non-fasting) (04/15/2018 4:47 AM EDT) Glucose 105 65 - 199 mg/dL [facility] Comment:Diabetes: >=200 mg/d L plus symptoms Blood Urea Nitrogen 30(H) 10 - 20 mg/dL [facility] Creatinine 2.17(H) 0.80 - 1.50 mg/dL [facility] Sodium 138 135 - 145 mmol/L [facility] Potassium 4.6 3.5 - 5.0 mmol/L [facility] Comment: Please note: ??Patients with WBC >100,000 may have falsely elevated Potassium levels. ??For accurate Potassium quantification in these patients send serum separator tube (gold top) for subsequent determinations. ??Contact the Clinical Chemistry Laboratory if there are any questions. Chloride 105 98 - 107 mmol/L [facility] Carbon Dioxide 20(L) 22 - 31 mmol/L [facility] Anion Gap 13 5 - 15 mmol/L [facility] Calcium 7.6(L) 8.5 - 10.5 mg/dL [facility] Est Glomerular Filtration Rate 33(L) >=60 mL/min/1. 73 m?? [facility] Comment: The eGFR was calculated using the CKD-EPI equation. As with all creatinine based estimates of kidney function, eGFR values calculated with the CKD-EPI equation are not accurate in patients with acute kidney failure, extremes of body mass or the acutely ill. [email or web address] eGFR 38(L) >=60 mL/min/1. 73 m?? [facility] Comment: The eGFR was calculated using the CKD-EPI equation. As with all creatinine based estimates of kidney function, eGFR values calculated with the CKD-EPI equation are not accurate in patients with acute kidney failure, extremes of body mass or the acutely ill. [email or web address] Blood specimen (specimen) 04/15/2018 4:47 AM EDT 04/15/2018 4:56 AM EDT Narrative Resulting Agency Comment Spec In Lab Hay Sparks MD CHEMISTRY ORDERABLES [facility] [place] [address] * (ABNORMAL) Differential, Automated (04/14/2018 5:48 AM EDT) Neutrophil % 68.9 % [facility] Neutrophil Absolute 3.74 1.70 - 6.10 x10(3)/mc L [facility] Lymph % 15.7 % [facility] Lymphocytes Abs 0.8(L) 0.9 - 3.2 x10(3)/mc L [facility] Monocyte % 11.1 % [facility] Monocyte Abs 0.6 0.3 - 0.9 x10(3)/mc L [facility] Eos % 3.7 % [facility] Eosinophils Abs 0.2 0.0 - 0.4 x10(3)/[facility] Basophil % 0.2 % [facility] Baso Absolute 0.0 0.0 - 0.1 x10(3)/[facility] Immature Gran % 0.40 % [facility] Comment: Immature granulocytes(IG's)percentage and absolute count will include metamyelocytes, myelocytes, and promyelocytes. Blood smears from CBCs yielding IG's will be scanned manually for concordance. If this scan disagrees with the automated IG or if promyelocytes are noted, a manual differential will be performed. Immature Gran Absolute 0.02 0.00 - 0.04 x10(3)/[facility] Blood specimen (specimen) 04/14/2018 5:48 AM EDT 04/14/2018 5:59 AM EDT Narrative Resulting Agency Comment Spec In Lab Apple Gutierrez MD HEMATOLOGY ORDERABLE S [facility] [place] [address] * (ABNORMAL) Hemogram (04/14/2018 5:48 AM EDT) White Blood Cell 5.4 4.0 - 9.5 x10(3)/[facility] Red Blood Cell 2.48(L) 4.58 - 5.54 x10(6)/[facility] Hemoglobin 7.5(L) 13.7 - 16.5 gm/dL [facility] Hematocrit 22.9(L) 40.5 - 48.5 % [facility] Mean Cell Volume 92.3 82.9 - 93.1 fL [facility] Mean Cell Hemoglobin 30.2 27.5 - 32.1 pg [facility] Mean Cell Hemoglobin Concentration 32.8 32.0 - 35.7 gm/dL [facility] Platelet 208 145 - 357 x10(3)/mc L [facility] RDW Standard Deviation 51.8(H) 36.0 - 45.0 fL [facility] RDW coefficient of variation 15.4(H) 11.4 - 13.8 % [facility] Mean Platelet Volume 8.4 7.6 - 12.9 fL [facility] NRBC% auto 0.0 % [facility] NRBC Absolute 0.000 0.000 - 0.000 x10(3)/mc L [facility] Blood specimen (specimen) 04/14/2018 5:48 AM EDT 04/14/2018 5:59 AM EDT Narrative Resulting Agency Comment Spec In Lab Apple Gutierrez MD HEMATOLOGY ORDERABLE S Performing Organization Address [facility] [place] [address] * APTT (04/14/2018 5:48 AM EDT) Partial Thromboplastin Time 28 25 - 37 sec [facility] HEMATOLOGY ORDERA BLES Performing Organization Address City/[facility]/ZIP Co de Phone Number [facility] [place] [address] * (ABNORMAL) Prothrombin Time (04/14/2018 5:48 AM EDT) Prothrombin Time 15.1(H) 9.4 - 12.5 sec [facility] International Normalization Ratio 1.4 [facility] Comment: An INR [...] Lab Chase Olvera MD HEMATOLOGY ORDERA BLES [facility] [place] [address] * (ABNORMAL) Basic Metabolic Panel (non-fasting) (04/14/2018 5:48 AM EDT) Glucose 110 65 - 199 mg/dL [facility] Comment:Diabetes: >=200 mg/d L plus symptoms Blood Urea Nitrogen 32(H) 10 - 20 mg/dL [facility] Creatinine 2.38(H) 0.80 - 1.50 mg/dL [facility] Sodium 138 135 - 145 mmol/L [facility] Potassium 4.1 3.5 - 5.0 mmol/L [facility] Comment: Please note: ??Patients with WBC >100,000 may have falsely elevated Potassium levels. ??For accurate Potassium quantification in these patients send serum separator tube (gold top) for subsequent determinations. ??Contact the Clinical Chemistry Laboratory if there are any questions. Chloride 106 98 - 107 mmol/L [facility] Carbon Dioxide 20(L) 22 - 31 mmol/L [facility] Anion Gap 12 5 - 15 mmol/L [facility] Calcium 7.6(L) 8.5 - 10.5 mg/dL [facility] Est Glomerular Filtration Rate 29(L) >=60 mL/min/1. 73 m?? [facility] Comment: The eGFR was calculated using the CKD-EPI equation. As with all creatinine based estimates of kidney function, eGFR values calculated with the CKD-EPI equation are not accurate in patients with acute kidney failure, extremes of body mass or the acutely ill. [email or web address] eGFR 34(L) >=60 mL/min/1. 73 m?? [facility] Comment: The eGFR was calculated using the CKD-EPI equation. As with all creatinine based estimates of kidney function, eGFR values calculated with the CKD-EPI equation are not accurate in patients with acute kidney failure, extremes of body mass or the acutely ill. [email or web address] Blood specimen (specimen) 04/14/2018 5:48 AM EDT 04/14/2018 5:59 AM EDT Narrative Resulting Agency Comment Spec In Lab Hay Sparks MD CHEMISTRY ORDERABLES [facility] [place] [address] * Differential, Automated (04/13/2018 8:14 AM EDT) Neutrophil % 66.0 % [facility] Neutrophil Absolute 3.49 1.70 - 6.10 x10(3)/[facility] Lymph % 16.3 % [facility] Lymphocytes Abs 0.9 0.9 - 3.2 x10(3)/[facility] Monocyte % 10.4 % [facility] Monocyte Abs 0.6 0.3 - 0.9 x10(3)/[facility] Eos % 6.3 % [facility] Eosinophils Abs 0.3 0.0 - 0.4 x10(3)/[facility] Basophil % 0.4 % [facility] Baso Absolute 0.0 0.0 - 0.1 x10(3)/[facility] Immature Gran % 0.60 % [facility] Comment: Immature granulocytes(IG's)percentage and absolute count will include metamyelocytes, myelocytes, and promyelocytes. Blood smears from CBCs yielding IG's will be scanned manually for concordance. If this scan disagrees with the automated IG or if promyelocytes are noted, a manual differential will be performed. Immature Gran Absolute 0.03 0.00 - 0.04 x10(3)/mcL [facility] Blood specimen (specimen) 04/13/2018 8:14 AM EDT 04/13/2018 8:21 AM EDT Narrative Resulting Agency Comment Spec In Lab Apple Gutierrez MD HEMATOLOGY ORDERABLE S [facility] [place] [address] * (ABNORMAL) Hemogram (04/13/2018 8:14 AM EDT) White Blood Cell 5.3 4.0 - 9.5 x10(3)/mc L [facility] Red Blood Cell 2.53(L) 4.58 - 5.54 x10(6)/mc L [facility] Hemoglobin 7.8(L) 13.7 - 16.5 gm/dL [facility] Hematocrit 23.3(L) 40.5 - 48.5 % [facility] Mean Cell Volume 92.1 82.9 - 93.1 fL [facility] Mean Cell Hemoglobin 30.8 27.5 - 32.1 pg [facility] Mean Cell Hemoglobin Concentration 33.5 32.0 - 35.7 gm/dL [facility] Platelet 190 145 - 357 x10(3)/mc L [facility] RDW Standard Deviation 53.5(H) 36.0 - 45.0 fL [facility] RDW coefficient of variation 15.9(H) 11.4 - 13.8 % [facility] Mean Platelet Volume 8.2 7.6 - 12.9 fL [facility] NRBC% auto 0.0 % [facility] NRBC Absolute 0.000 0.000 - 0.000 x10(3)/mc L [facility] Blood specimen (specimen) 04/13/2018 8:14 AM EDT 04/13/2018 8:21 AM EDT Narrative Resulting Agency Comment Spec In Lab Apple Gutierrez MD HEMATOLOGY ORDERABLE S Performing Organization Address [facility] Co de Phone Number [facility] [place] [address] * APTT (04/13/2018 8:14 AM EDT) Partial Thromboplastin Time 29 25 - 37 sec [facility] ORDERA BLES Performing Organization Address [facility] de Phone Number [facility] [place] [address] * (ABNORMAL) Prothrombin Time (04/13/2018 8:14 AM EDT) Prothrombin Time 17.3(H) 9.4 - 12.5 sec [facility] International Normalization Ratio 1.6 [facility] Comment: An INR [...] Lab Chase Olvera MD HEMATOLOGY ORDERA BLES [facility] [place] [address] * (ABNORMAL) Basic Metabolic Panel (non-fasting) (04/13/2018 8:14 AM EDT) Glucose 108 65 - 199 mg/dL [facility] Comment:Diabetes: >=200 mg/d L plus symptoms Blood Urea Nitrogen 30(H) 10 - 20 mg/dL [facility] Creatinine 2.28(H) 0.80 - 1.50 mg/dL [facility] Sodium 138 135 - 145 mmol/L [facility] Potassium 4.5 3.5 - 5.0 mmol/L [facility] Comment: Please note: ??Patients with WBC >100,000 may have falsely elevated Potassium levels. ??For accurate Potassium quantification in these patients send serum separator tube (gold top) for subsequent determinations. ??Contact the Clinical Chemistry Laboratory if there are any questions. Chloride 104 98 - 107 mmol/L [facility] Carbon Dioxide 20(L) 22 - 31 mmol/L [facility] Anion Gap 14 5 - 15 mmol/L [facility] Calcium 7.7(L) 8.5 - 10.5 mg/dL [facility] Est Glomerular Filtration Rate 31(L) >=60 mL/min/1. 73 m?? [facility] Comment: The eGFR was calculated using the CKD-EPI equation. As with all creatinine based estimates of kidney function, eGFR values calculated with the CKD-EPI equation are not accurate in patients with acute kidney failure, extremes of body mass or the acutely ill. [email or web address] eGFR 36(L) >=60 mL/min/1. 73 m?? [facility] Comment: The eGFR was calculated using the CKD-EPI equation. As with all creatinine based estimates of kidney function, eGFR values calculated with the CKD-EPI equation are not accurate in patients with acute kidney failure, extremes of body mass or the acutely ill. [email or web address] Blood specimen (specimen) 04/13/2018 8:14 AM EDT 04/13/2018 8:21 AM EDT Narrative Resulting Agency Comment Spec In Lab Hay Sparks MD CHEMISTRY ORDERABLES Performing Organization Address [facility] de Phone Number [facility] [place] [address] * Tacrolimus level (04/13/2018 8:14 AM EDT) Tacrolimus <2.0 ng/mL [facility] Comment: Trough therapeutic: ??5-15 ng/mL Performed by ultra-performance liquid chromatography tandem mass spectrometry (UPLCMS/MS). This test was developed and its performance characteristics determined by [facility]. It has not been cleared or [...] ORDERAB LES Performing Organization Address [facility] de Phone Number [facility] [place] [address] * (ABNORMAL) Protein/Creatinine Ratio, urine (04/13/2018 3:45 AM EDT) Creatinine, Urine 51 mg/dL [facility] Protein, Urine 373(H) 0 - 12 mg/dL [facility] Protein / Creatinine Ratio, Urine 7.3 ratio [facility] Urine specimen (specimen) 04/13/2018 3:45 AM EDT 04/13/2018 3:55 AM EDT Narrative Resulting Agency Comment Spec In Lab Chase Olvera MD URINE ORDERABLES Performing Organization Address [facility]/ZIP Co de Phone Number [facility] [place] [address] * (ABNORMAL) Urinalysis Microscopic Exam (04/13/2018 1:51 AM EDT) RBC, Urine 4(H) 0 - 3 /HPF [facility] WBC, Urine 1 0 - 3 /HPF [facility] Transitional Epithelial Cells, Urine <1 <=1 /HPF [facility] Hyaline Casts, Urine 4(H) 0 - 2 /LPF [facility] Urine specimen obtained by clean catch procedure (specimen) 04/13/2018 1:51 AM EDT 04/13/2018 1:58 AM EDT Narrative Resulting Agency Comment Spec In Lab Rasta Hernández MD URINE ORDERABLES Performing Organization Address [facility] Co de Phone Number [facility] [place] [address] * (ABNORMAL) Urinalysis with reflex Culture (04/13/2018 1:51 AM EDT) Glucose, Urine Dipstick Negative Negative mg/dL [facility] [...] [facility] pH, Urn (dipstick) 7.0 5.0 - 8.0 [facility] Blood, Urine Dipstick Negative Negative mg/dL [facility] [facility] Ketone, Urine Dipstick Negative Negative mg/dL [facility] Nitrite, Urine Dipstick Negative Negative [facility] Leukocytes, Urine Dipstick Negative Negative [facility] Appearance, Urine Dipstick Clear Clear [facility] Specific [place] Urine Automated 1.017 1.002 - 1.030 [facility] Color, Urine Dipstick Yellow Yellow [facility] Reflex to Culture No [facility] Urine specimen obtained by clean catch procedure (specimen) 04/13/2018 1:51 AM EDT 04/13/2018 1:58 AM EDT Narrative Resulting Agency Comment Spec In Lab Chase Olvera MD URINE ORDERABLES [facility] [place] [address] * MRI Angiogram Neck wo Contrast (04/12/2018 [...] atherosclerosis, NO CONTRAST TECHNIQUE: MRA of the [place] and MRA of the neck were performed without IV contrast, with wxtg-gv-jcsxbz technique. ?? COMPARISON: MR head 04/07/2018 FINDINGS: MRA [place]: The intracranial internal carotid arteries, vertebral arteries, basilar artery, superior cerebellar arteries are normal in course and caliber. The bilateral MARCUS, MCA, and DISCOUNT CLERK are normal in course and caliber. No focal stenosis caliber change or aneurysm.. MRA neck: Msjv-po-ytaqky imaging excludes the arch. Vertebral arteries, common carotid arteries, bilateral ECA, ICA are normal in course and caliber. Procedure Note Sabrina Vargas MD - 04/12/2018 EXAMINATION: MRI ANGIOGRAM HEAD WO CONTRAST (GENERIC), MRI ANGIOGRAM NECKWO CONTRAST CLINICAL HISTORY: question intra cranial atherosclerosis, NO CONTRAST TECHNIQUE: MRA of the [place] and MRA of the neck were performed withoutIV contrast, with mmia-qa-yxelpj technique. COMPARISON: MR head 04/07/2018 FINDINGS: MRA [place]: The intracranial internal carotid arteries, vertebral arteries, basilarartery, superior cerebellar arteries are normal in course and caliber. Thebilateral MARCUS, MCA, and DISCOUNT CLERK are normal in course and caliber. No focal stenosiscaliber change or aneurysm.. MRA neck: Mctj-cs-fnwwny imaging excludes the arch. Vertebral arteries, common [...] atherosclerosis, NO CONTRAST TECHNIQUE: MRA of the [place] and MRA of the neck were performed without IV contrast, with fczo-xf-kkskdb technique. ?? COMPARISON: MR head 04/07/2018 FINDINGS: MRA [place]: The intracranial internal carotid arteries, vertebral arteries, basilar artery, superior cerebellar arteries are normal in course and caliber. The bilateral MARCUS, MCA, and DISCOUNT CLERK are normal in course and caliber. No focal stenosis caliber change or aneurysm.. MRA neck: Dxqa-az-uhuqxb imaging excludes the arch. Vertebral arteries, common carotid arteries, bilateral ECA, ICA are normal in course and caliber. Procedure Note Sabrina Vargas MD - 04/12/2018 EXAMINATION: MRI ANGIOGRAM HEAD WO CONTRAST (GENERIC), MRI ANGIOGRAM NECKWO CONTRAST CLINICAL HISTORY: question intra cranial atherosclerosis, NO CONTRAST TECHNIQUE: MRA of the [place] and MRA of the neck were performed withoutIV contrast, with iquk-wh-gmkahs technique. COMPARISON: MR head 04/07/2018 FINDINGS: MRA [place]: The intracranial internal carotid arteries, vertebral arteries, basilarartery, superior cerebellar arteries are normal in course and caliber. Thebilateral MARCUS, MCA, and DISCOUNT CLERK are normal in course and caliber. No focal stenosiscaliber change or aneurysm.. MRA neck: Meer-ty-vkfzxn imaging excludes the arch. Vertebral arteries, common [...] Tube HOLD (04/12/2018 8:40 AM EDT) Pathologist [facility] Gold Hold Sample in lab. [facility] Blood specimen (specimen) Venous Draw / Unknown 04/12/2018 8:40 AM EDT 04/12/2018 9:16 AM EDT Apple Gutierrez MD CHEMISTRY ORDERABLES [facility] [place] [address] * (ABNORMAL) Differential, Automated (04/12/2018 8:40 AM EDT) Neutrophil % 65.6 % [facility] Neutrophil Absolute 3.27 1.70 - 6.10 x10(3)/[facility] Lymph % 15.6 % [facility] Lymphocytes Abs 0.8(L) 0.9 - 3.2 x10(3)/[facility] Monocyte % 11.0 % [facility] Monocyte Abs 0.6 0.3 - 0.9 x10(3)/[facility] Eos % 6.6 % [facility] Eosinophils Abs 0.3 0.0 - 0.4 x10(3)/[facility] Basophil % 0.6 % [facility] Baso Absolute 0.0 0.0 - 0.1 x10(3)/[facility] Immature Gran % 0.60 % [facility] Comment: Immature granulocytes(IG's)percentage and absolute count will include metamyelocytes, myelocytes, and promyelocytes. Blood smears from CBCs yielding IG's will be scanned manually for concordance. If this scan disagrees with the automated IG or if promyelocytes are noted, a manual differential will be performed. Immature Gran Absolute 0.03 0.00 - 0.04 x10(3)/[facility] Blood specimen (specimen) 04/12/2018 8:40 AM EDT 04/12/2018 9:15 AM EDT Narrative Resulting Agency Comment Spec In Lab Apple Gutierrez MD HEMATOLOGY ORDERABLE S [facility] [place] [address] * (ABNORMAL) Hemogram (04/12/2018 8:40 AM EDT) White Blood Cell 5.0 4.0 - 9.5 x10(3)/[facility] Red Blood Cell 2.60(L) 4.58 - 5.54 x10(6)/mc L [facility] Hemoglobin 7.9(L) 13.7 - 16.5 gm/dL [facility] Hematocrit 24.0(L) 40.5 - 48.5 % [facility] Mean Cell Volume 92.3 82.9 - 93.1 fL [facility] Mean Cell Hemoglobin 30.4 27.5 - 32.1 pg [facility] Mean Cell Hemoglobin Concentration 32.9 32.0 - 35.7 gm/dL [facility] Platelet 183 145 - 357 x10(3)/mc L [facility] RDW Standard Deviation 54.2(H) 36.0 - 45.0 [facility] RDW coefficient of variation 16.0(H) 11.4 - 13.8 % [facility] Mean Platelet Volume 8.8 7.6 - 12.9 [facility] NRBC% auto 0.0 % [facility] NRBC Absolute 0.000 0.000 - 0.000 x10(3)/mc L [facility] Blood specimen (specimen) 04/12/2018 8:40 AM EDT 04/12/2018 9:15 AM EDT Narrative Resulting Agency Comment Spec In Lab Apple Gutierrez MD HEMATOLOGY ORDERABLE S [facility] [place] [address] * APTT (04/12/2018 8:40 AM EDT) Partial Thromboplastin Time 32 25 - 37 sec [facility] ORDERA BLES Performing Organization Address [facility] Co de Phone Number [facility] [place] [address] * (ABNORMAL) Prothrombin Time (04/12/2018 8:40 AM EDT) Prothrombin Time 20.0(H) 9.4 - 12.5 sec [facility] International Normalization Ratio 1.8 [facility] Comment: An INR [...] ORDERA BLES Performing Organization Address [facility] Co de Phone Number [facility] [place] [address] * (ABNORMAL) Basic Metabolic Panel (non-fasting) (04/12/2018 8:40 AM EDT) Pathologist [facility] Glucose 113 65 - 199 mg/dL [facility] Comment:Diabetes: >=200 mg/d L plus symptoms Blood Urea Nitrogen 31(H) 10 - 20 mg/dL [facility] Creatinine 2.35(H) 0.80 - 1.50 mg/dL [facility] Sodium 140 135 - 145 mmol/L [facility] Potassium 4.4 3.5 - 5.0 mmol/L [facility] Comment: Please note: ??Patients with WBC >100,000 may have falsely elevated Potassium levels. ??For accurate Potassium quantification in these patients send serum separator tube (gold top) for subsequent determinations. ??Contact the Clinical Chemistry Laboratory if there are any questions. Chloride 106 98 - 107 mmol/L [facility] Carbon Dioxide 20(L) 22 - 31 mmol/L [facility] Anion Gap 14 5 - 15 mmol/L [facility] Calcium 7.4(L) 8.5 - 10.5 mg/dL [facility] Est Glomerular Filtration Rate 30(L) >=60 mL/min/1. 73 m?? [facility] Comment: The eGFR was calculated using the CKD-EPI equation. As with all creatinine based estimates of kidney function, eGFR values calculated with the CKD-EPI equation are not accurate in patients with acute kidney failure, extremes of body mass or the acutely ill. [email or web address]kf eGFR 35(L) >=60 mL/min/1. 73 m?? [facility] Comment: The eGFR was calculated using the CKD-EPI equation. As with all creatinine based estimates of kidney function, eGFR values calculated with the CKD-EPI equation are not accurate in patients with acute kidney failure, extremes of body mass or the acutely ill. [email or web address] Blood specimen (specimen) 04/12/2018 8:40 AM EDT 04/12/2018 9:15 AM EDT Narrative Resulting Agency Comment Spec In Lab Hay Spraks MD CHEMISTRY ORDERABLES [facility] [place] [address] * ECHO COMPLETE (04/11/2018 2:53 PM EDT) EF 65 HEARTLAB SYSTEM Anatomical Region Laterality Modality Other 04/11/2018 Narrative 04/11/2018 3:21 PM EDT Amended Report Procedure: ?Transthoracic Echocardiogram Patient: ?ARNOL CHRISTY J ? (Age): 1960(57y) Med Rec#: ? [id number] ?Sex: ?M ? Site Loc: ? [facility] ?Ht / Wt: ??178(cm)/91.6(kg Pt. Loc: ?Adult Floor ? BSA: ?2.1 Study Date: ?? 04/11/2018 ?Pt. Type: Outpatient Tape: ? Referring: Lida Peter Reading: Tim Estrella ([id number]) Dye Tub Operator: Chidi Steve [facility] Dye Tub Operator 2: Yimi Norman Diagnosis: *Cerebral infarction [...] ? Mid-Inferior ?Normal ? Mid-Inferoseptal ?Normal ? Mercer-Septal ? Normal ? Mercer-Anterior ? Normal ? Mercer-Lateral ?Normal ? Mercer-Inferior ? Normal ? Mercer-Tip ?Normal ? This report has been electronically signed by: Tim Estrella M.D. ? 04/11/2018 15:21:34 Images reviewed and interpretation verified [facility] Procedure Note Tim Estrella MD - 04/11/2018 Amended Report Procedure: Transthoracic Echocardiogram Patient: ARNOL DU(Age): 1960(57y) Med Rec#: [id number] Sex: M Site Loc: [facility] Ht / Wt: 178(cm)/91.6(kg Pt. Loc: Adult Floor BSA: 2.1 Study Date: 04/11/2018 Pt. Type: Outpatient Tape: Referring: Lida Peter Reading: Tim Estrella ([id number]) Dye Tub Operator: Chidi Steve [facility] Dye Tub Operator 2: Yimi Norman Diagnosis: *Cerebral infarction [...] Normal Mid-Posterolateral Normal Mid-Inferior Normal Mid-Inferoseptal Normal Mercer-Septal Normal Mercer-Anterior Normal Mercer-Lateral Normal Mercer-Inferior Normal Mercer-Tip Normal This report has been electronically signed by: Tim Estrella M.D. 04/11/2018 15:21:34 Images reviewed and interpretation verified [facility] Lida Peter MD ECHO ORDERABLES * ABORH Recheck Status (04/11/2018 6:28 AM EDT) ABORH Type Recheck Completed [facility] Blood specimen (specimen) 04/11/2018 6:28 AM EDT 04/11/2018 6:28 AM EDT Narrative Resulting Agency Comment Spec In Lab Hanny Wiseman MD BLOOD BANK LAB ORDER KELLY [facility] [place] [address] * Antibody screen (04/11/2018 6:28 AM EDT) Ab Screen Interp Negative [facility] Expires at [id number] on: 04/14/2018 [facility] Blood specimen (specimen) 04/11/2018 6:28 AM EDT 04/11/2018 6:28 AM EDT Narrative Resulting Agency Comment Spec In Lab Hanny Wiseman MD BLOOD BANK LAB ORDER KELLY [facility] [place] [address] * ABO/Rh Typing (04/11/2018 6:28 AM EDT) ABORH Type A Pos [facility] Blood specimen (specimen) 04/11/2018 6:28 AM EDT 04/11/2018 6:28 AM EDT Narrative Resulting Agency Comment Spec In Lab Hanny Wiseman MD BLOOD BANK LAB ORDER KELLY [facility] [place] [address] * (ABNORMAL) Differential, Automated (04/11/2018 5:55 AM EDT) Neutrophil % 68.9 % [facility] Neutrophil Absolute 3.90 1.70 - 6.10 x10(3)/mc L [facility] Lymph % 14.7 % [facility] Lymphocytes Abs 0.8(L) 0.9 - 3.2 x10(3)/mc L [facility] Monocyte % 10.6 % [facility] Monocyte Abs 0.6 0.3 - 0.9 x10(3)/mc L [facility] Eos % 4.9 % [facility] Eosinophils Abs 0.3 0.0 - 0.4 x10(3)/mc L [facility] Basophil % 0.4 % [facility] Baso Absolute 0.0 0.0 - 0.1 x10(3)/mc L [facility] Immature Gran % 0.50 % [facility] Comment: Immature granulocytes(IG's)percentage and absolute count will include metamyelocytes, myelocytes, and promyelocytes. Blood smears from CBCs yielding IG's will be scanned manually for concordance. If this scan disagrees with the automated IG or if promyelocytes are noted, a manual differential will be performed. Immature Gran Absolute 0.03 0.00 - 0.04 x10(3)/mc L [facility] Blood specimen (specimen) 04/11/2018 5:55 AM EDT 04/11/2018 6:03 AM EDT Narrative Resulting Agency Comment Spec In Lab Apple Gutierrez MD HEMATOLOGY ORDERABLE S [facility] [place] [address] * (ABNORMAL) Hemogram (04/11/2018 5:55 AM EDT) White Blood Cell 5.7 4.0 - 9.5 x10(3)/mc L [facility] Red Blood Cell 2.44(L) 4.58 - 5.54 x10(6)/mc L [facility] Hemoglobin 7.4(L) 13.7 - 16.5 gm/dL [facility] Hematocrit 22.2(L) 40.5 - 48.5 % [facility] Mean Cell Volume 91.0 82.9 - 93.1 fL [facility] Mean Cell Hemoglobin 30.3 27.5 - 32.1 pg [facility] Mean Cell Hemoglobin Concentration 33.3 32.0 - 35.7 gm/dL [facility] Platelet 150 145 - 357 x10(3)/mc L [facility] RDW Standard Deviation 52.6(H) 36.0 - 45.0 fL [facility] RDW coefficient of variation 15.9(H) 11.4 - 13.8 % [facility] Mean Platelet Volume 9.1 7.6 - 12.9 fL [facility] NRBC% auto 0.0 % [facility] NRBC Absolute 0.000 0.000 - 0.000 x10(3)/mc L [facility] Blood specimen (specimen) 04/11/2018 5:55 AM EDT 04/11/2018 6:03 AM EDT Narrative Resulting Agency Comment Spec In Lab Apple Gutierrez MD HEMATOLOGY ORDERABLE S [facility] [place] [address] * APTT (04/11/2018 5:55 AM EDT) Partial Thromboplastin Time 37 25 - 37 sec [facility] ORDERA BLES Performing Organization Address [facility] Co de Phone Number [facility] [place] [address] * (ABNORMAL) Prothrombin Time (04/11/2018 5:55 AM EDT) Prothrombin Time 26.8(H) 9.4 - 12.5 sec [facility] International Normalization Ratio 2.4 [facility] Comment: An INR [...] ORDERA BLES Performing Organization Address [facility] Co de Phone Number [facility] [place] [address] * (ABNORMAL) Basic Metabolic Panel (non-fasting) (04/11/2018 5:55 AM EDT) Glucose 112 65 - 199 mg/dL [facility] Comment:Diabetes: >=200 mg/d L plus symptoms Blood Urea Nitrogen 33(H) 10 - 20 mg/dL [facility] Creatinine 2.33(H) 0.80 - 1.50 mg/dL [facility] Sodium 144 135 - 145 mmol/L [facility] Potassium 4.5 3.5 - 5.0 mmol/L [facility] Comment: Please note: ??Patients with WBC >100,000 may have falsely elevated Potassium levels. ??For accurate Potassium quantification in these patients send serum separator tube (gold top) for subsequent determinations. ??Contact the Clinical Chemistry Laboratory if there are any questions. Chloride 110(H) 98 - 107 mmol/L [facility] Carbon Dioxide 22 22 - 31 mmol/L [facility] Anion Gap 12 5 - 15 mmol/L [facility] Calcium 7.3(L) 8.5 - 10.5 mg/dL [facility] Est Glomerular Filtration Rate 30(L) >=60 mL/min/1. 73 m?? [facility] Comment: The eGFR was calculated using the CKD-EPI equation. As with all creatinine based estimates of kidney function, eGFR values calculated with the CKD-EPI equation are not accurate in patients with acute kidney failure, extremes of body mass or the acutely ill. [email or web address]kf eGFR 35(L) >=60 mL/min/1. 73 m?? [facility] Comment: The eGFR was calculated using the CKD-EPI equation. As with all creatinine based estimates of kidney function, eGFR values calculated with the CKD-EPI equation are not accurate in patients with acute kidney failure, extremes of body mass or the acutely ill. [email or web address] Blood specimen (specimen) 04/11/2018 5:55 AM EDT 04/11/2018 6:04 AM EDT Narrative Resulting Agency Comment Spec In Lab Hay Sparks MD CHEMISTRY ORDERABLES [facility] [place] [address] * POCT Glucose (04/10/2018 7:56 AM EDT) Glucose, POC 119 65 - 199 mg/dL [facility] Comment: Supplemental ranges: <140 mg/dL before meals <180 mg/dL all other times of the day Blood specimen (specimen) 04/10/2018 7:56 AM EDT 04/10/2018 7:56 AM EDT Chase Olvera MD POINT OF CARE SHAZIA T ORDERABLES [facility] [place] [address] * (ABNORMAL) Differential, Automated (04/10/2018 5:35 AM EDT) [facility] Neutrophil % 72.4 % [facility] Neutrophil Absolute 4.21 1.70 - 6.10 x10(3)/mc L [facility] Lymph % 12.7 % [facility] Lymphocytes Abs 0.7(L) 0.9 - 3.2 x10(3)/mc L [facility] Monocyte % 9.1 % [facility] Monocyte Abs 0.5 0.3 - 0.9 x10(3)/mc L [facility] Eos % 5.0 % [facility] Eosinophils Abs 0.3 0.0 - 0.4 x10(3)/mc L [facility] Basophil % 0.3 % [facility] Baso Absolute 0.0 0.0 - 0.1 x10(3)/mc L [facility] Immature Gran % 0.50 % [facility] Comment: Immature granulocytes(IG's)percentage and absolute count will include metamyelocytes, myelocytes, and promyelocytes. Blood smears from CBCs yielding IG's will be scanned manually for concordance. If this scan disagrees with the automated IG or if promyelocytes are noted, a manual differential will be performed. Immature Gran Absolute 0.03 0.00 - 0.04 x10(3)/mc L [facility] Blood specimen (specimen) 04/10/2018 5:35 AM EDT 04/10/2018 6:09 AM EDT Narrative Resulting Agency Comment Spec In Lab Apple Gutierrez MD HEMATOLOGY ORDERABLE S [facility] [place] [address] * (ABNORMAL) Hemogram (04/10/2018 5:35 AM EDT) White Blood Cell 5.8 4.0 - 9.5 x10(3)/[facility] Red Blood Cell 2.44(L) 4.58 - 5.54 x10(6)/[facility] Hemoglobin 7.3(L) 13.7 - 16.5 gm/dL [facility] Hematocrit 22.0(L) 40.5 - 48.5 % [facility] Mean Cell Volume 90.2 82.9 - 93.1 [facility] Mean Cell Hemoglobin 29.9 27.5 - 32.1 pg [facility] Mean Cell Hemoglobin Concentration 33.2 32.0 - 35.7 gm/dL [facility] Platelet 105(L) 145 - 357 x10(3)/[facility] RDW Standard Deviation 52.6(H) 36.0 - 45.0 [facility] RDW coefficient of variation 15.9(H) 11.4 - 13.8 % [facility] Mean Platelet Volume 9.6 7.6 - 12.9 [facility] NRBC% auto 0.0 % [facility] NRBC Absolute 0.000 0.000 - 0.000 x10(3)/[facility] Blood specimen (specimen) 04/10/2018 5:35 AM EDT 04/10/2018 6:09 AM EDT Narrative Resulting Agency Comment Spec In Lab Apple Gutierrez MD HEMATOLOGY ORDERABLE S Performing Organization Address [facility] Co de Phone Number [facility] [place] [address] * APTT (04/10/2018 5:35 AM EDT) Partial Thromboplastin Time 36 25 - 37 sec [facility] [...] MD HEMATOLOGY ORDERA BLES Performing Organization Address [facility] Co de Phone Number [facility] [place] [address] * (ABNORMAL) Prothrombin Time (04/10/2018 5:35 AM EDT) Prothrombin Time 28.7(H) 9.4 - 12.5 sec [facility] International Normalization Ratio 2.6 [facility] Comment: An INR [...] ORDERA BLES Performing Organization Address [facility] Co de Phone Number [facility] [place] [address] * (ABNORMAL) Basic Metabolic Panel (non-fasting) (04/10/2018 5:35 AM EDT) Glucose 112 65 - 199 mg/dL [facility] Comment:Diabetes: >=200 mg/d L plus symptoms Blood Urea Nitrogen 33(H) 10 - 20 mg/dL [facility] Creatinine 2.59(H) 0.80 - 1.50 mg/dL [facility] Sodium 144 135 - 145 mmol/L [facility] Potassium 4.3 3.5 - 5.0 mmol/L [facility] Comment: Please note: ??Patients with WBC >100,000 may have falsely elevated Potassium levels. ??For accurate Potassium quantification in these patients send serum separator tube (gold top) for subsequent determinations. ??Contact the Clinical Chemistry Laboratory if there are any questions. Chloride 109(H) 98 - 107 mmol/L [facility] Carbon Dioxide 23 22 - 31 mmol/L [facility] Anion Gap 12 5 - 15 mmol/L [facility] Calcium 7.9(L) 8.5 - 10.5 mg/dL [facility] Est Glomerular Filtration Rate 27(L) >=60 mL/min/1. 73 m?? [facility] Comment: The eGFR was calculated using the CKD-EPI equation. As with all creatinine based estimates of kidney function, eGFR values calculated with the CKD-EPI equation are not accurate in patients with acute kidney failure, extremes of body mass or the acutely ill. [email or web address] eGFR 31(L) >=60 mL/min/1. 73 m?? [facility] Comment: The eGFR was calculated using the CKD-EPI equation. As with all creatinine based estimates of kidney function, eGFR values calculated with the CKD-EPI equation are not accurate in patients with acute kidney failure, extremes of body mass or the acutely ill. [email or web address] Blood specimen (specimen) 04/10/2018 5:35 AM EDT 04/10/2018 6:09 AM EDT Narrative Resulting Agency Comment Spec In Lab Hay Sparks MD CHEMISTRY ORDERABLES Performing Organization Address [facility]/ZIP Co de Phone Number [facility] [place] [address] * POCT Glucose (04/09/2018 8:26 PM EDT) Glucose, POC 137 65 - 199 mg/dL [facility] Comment: Supplemental ranges: <140 mg/dL before meals <180 mg/dL all other times of the day Blood specimen (specimen) 04/09/2018 8:26 PM EDT 04/09/2018 8:26 PM EDT Chase Olvera MD POINT OF CARE SHAZIA T ORDERABLES Performing Organization Address [facility] Co de Phone Number [facility] [place] [address] * APTT (04/09/2018 8:25 PM EDT) Partial Thromboplastin Time 37 25 - 37 sec [facility] ORDERABLE S Performing Organization Address [facility]/ZIP Co de Phone Number [facility] [place] [address] * (ABNORMAL) Prothrombin Time (04/09/2018 8:25 PM EDT) Prothrombin Time 30.4(H) 9.4 - 12.5 sec [facility] International Normalization Ratio 2.7 [facility] Comment: An INR [...] Lab Lida Peter MD HEMATOLOGY ORDERABLE S [facility] [place] [address] * Transfuse thawed plasma (04/09/2018 6:04 PM EDT) Lida Peter MD NURSING TREATMENT OR DERABLES - BLOOD ADMIN * Transfuse thawed plasma (04/09/2018 4:29 PM EDT) Lida Peter MD NURSING TREATMENT OR DERABLES - BLOOD ADMIN * Transfuse thawed plasma (04/09/2018 1:52 PM EDT) Chase Olvera MD NURSING TREATMENT ORDERABLES - BLOOD ADMIN * Prepare thawed plasma (04/09/2018 11:05 AM EDT) Dispensed? Yes [facility] Blood specimen (specimen) 04/09/2018 11:05 AM EDT 04/09/2018 11:07 AM EDT Lida Peter MD BLOOD BANK PRODUCT O RDERABLES [facility] [place] [address] * (ABNORMAL) APTT (04/09/2018 10:03 AM EDT) Partial Thromboplastin Time 39(H) 25 - 37 sec [facility] ORDERABLE S Performing Organization Address [facility] Co de Phone Number [facility] [place] [address] * (ABNORMAL) Prothrombin Time (04/09/2018 10:03 AM EDT) Prothrombin Time 47.7(H) 9.4 - 12.5 sec [facility] International Normalization Ratio 4.2 [facility] Comment: An INR [...] ORDERABLE S Performing Organization Address [facility] Co de Phone Number [facility] [place] [address] * Differential, Automated (04/09/2018 3:05 AM EDT) Neutrophil % 74.9 % [facility] Neutrophil Absolute 6.08 1.70 - 6.10 x10(3)/[facility] Lymph % 12.2 % [facility] Lymphocytes Abs 1.0 0.9 - 3.2 x10(3)/[facility] Monocyte % 8.7 % [facility] Monocyte Abs 0.7 0.3 - 0.9 x10(3)/[facility] Eos % 3.2 % [facility] Eosinophils Abs 0.3 0.0 - 0.4 x10(3)/[facility] Basophil % 0.5 % [facility] Baso Absolute 0.0 0.0 - 0.1 x10(3)/[facility] Immature Gran % 0.50 % [facility] Comment: Immature granulocytes(IG's)percentage and absolute count will include metamyelocytes, myelocytes, and promyelocytes. Blood smears from CBCs yielding IG's will be scanned manually for concordance. If this scan disagrees with the automated IG or if promyelocytes are noted, a manual differential will be performed. Immature Gran Absolute 0.04 0.00 - 0.04 x10(3)/[facility] Blood specimen (specimen) 04/09/2018 3:05 AM EDT 04/09/2018 3:13 AM EDT Narrative Resulting Agency Comment Spec In Lab Apple Gutierrez MD HEMATOLOGY ORDERABLE S [facility] [place] [address] * (ABNORMAL) Hemogram (04/09/2018 3:05 AM EDT) White Blood Cell 8.1 4.0 - 9.5 x10(3)/mc L [facility] Red Blood Cell 2.55(L) 4.58 - 5.54 x10(6)/mc L [facility] Hemoglobin 7.8(L) 13.7 - 16.5 gm/dL [facility] Hematocrit 22.8(L) 40.5 - 48.5 % [facility] Mean Cell Volume 89.4 82.9 - 93.1 fL [facility] Mean Cell Hemoglobin 30.6 27.5 - 32.1 pg [facility] Mean Cell Hemoglobin Concentration 34.2 32.0 - 35.7 gm/dL [facility] Platelet 100(L) 145 - 357 x10(3)/mc L [facility] RDW Standard Deviation 53.7(H) 36.0 - 45.0 fL [facility] RDW coefficient of variation 16.6(H) 11.4 - 13.8 % [facility] Mean Platelet Volume 8.9 7.6 - 12.9 fL [facility] NRBC% auto 0.0 % [facility] NRBC Absolute 0.000 0.000 - 0.000 x10(3)/mc L [facility] Blood specimen (specimen) 04/09/2018 3:05 AM EDT 04/09/2018 3:13 AM EDT Narrative Resulting Agency Comment Spec In Lab Apple Gutierrez MD HEMATOLOGY ORDERABLE S [facility] [place] [address] * (ABNORMAL) Basic Metabolic Panel (non-fasting) (04/09/2018 3:05 AM EDT) Glucose 122 65 - 199 mg/dL [facility] Comment:Diabetes: >=200 mg/d L plus symptoms Blood Urea Nitrogen 44(H) 10 - 20 mg/dL [facility] Creatinine 3.00(H) 0.80 - 1.50 mg/dL [facility] Sodium 146(H) 135 - 145 mmol/L [facility] Potassium 4.9 3.5 - 5.0 mmol/L [facility] Comment: Please note: ??Patients with WBC >100,000 may have falsely elevated Potassium levels. ??For accurate Potassium quantification in these patients send serum separator tube (gold top) for subsequent determinations. ??Contact the Clinical Chemistry Laboratory if there are any questions. Chloride 110(H) 98 - 107 mmol/L [facility] Carbon Dioxide 21(L) 22 - 31 mmol/L [facility] Anion Gap 15 5 - 15 mmol/L [facility] Calcium 7.7(L) 8.5 - 10.5 mg/dL [facility] Est Glomerular Filtration Rate 22(L) >=60 mL/min/1. 73 m?? [facility] Comment: The eGFR was calculated using the CKD-EPI equation. As with all creatinine based estimates of kidney function, eGFR values calculated with the CKD-EPI equation are not accurate in patients with acute kidney failure, extremes of body mass or the acutely ill. [email or web address] Hospit[facility]f eGFR 26(L) >=60 mL/min/1. 73 m?? [facility] Comment: The eGFR was calculated using the CKD-EPI equation. As with all creatinine based estimates of kidney function, eGFR values calculated with the CKD-EPI equation are not accurate in patients with acute kidney failure, extremes of body mass or the acutely ill. [email or web address] TULSAnkf Blood specimen (specimen) 04/09/2018 3:05 AM EDT 04/09/2018 3:13 AM EDT Narrative Resulting Agency Comment Spec In Lab Hay Sparks MD CHEMISTRY ORDERABLES Performing Organization Address City/[facility]/ZIP Co de Phone Number [facility] [place] [address] * Lavender Tube HOLD (04/08/2018 8:10 PM EDT) Lavender Hold Sample in lab. [facility] Blood specimen (specimen) Venous Draw / Unknown 04/08/2018 8:10 PM EDT 04/08/2018 8:26 PM EDT John Rose MD HEMATOLOGY ORDERABLE S [facility] [place] [address] * (ABNORMAL) Phenytoin level, total and free (04/08/2018 8:10 PM EDT) Phenytoin 7.3(L) 10.0 - 20.0 mg/L [facility] Comment: Theraputic range: ??10-20 mg/L Toxic: ??> 25 mg/L Patients with renal dysfunction (e.g.creatinine clearance < 30 mls/min) may show falsely elevated results due to accumulation of metabolites in renal failure Phenytoin, Free 0.95(L) 1.00 - 2.00 mg/L [facility] Comment: Therapeutic range: ? Free phenytoin: ??1.00-2.00 mg/L ? % Free phenytoin: ??8-12% Toxic range: ? Free phenytoin: ??>3.00 mg/L This test was developed and its performance characteristics determined by [facility]. It has not been cleared or approved by the FDA. The laboratory is regulated under CLIA as qualified to perform high-complexity testing. This test is used for clinical purposes. It should not be regarded as investigational or for research. Phenyt Free % 13(H) 8 - 12 % [facility] Comment: This test was developed and its performance characteristics determined by [facility]. It has not been [...] In Lab Lida Peter MD CHEMISTRY ORDERABLES [facility] [place] [address] * Transfuse RBC (04/08/2018 4:59 PM EDT) Lida Peter MD NURSING TREATMENT OR DERABLES - BLOOD ADMIN * Transfuse RBC (04/08/2018 4:59 PM EDT) Lida Peter MD NURSING TREATMENT OR DERABLES - BLOOD ADMIN * EEG awake, asleep, drowsy, routine (04/08/2018 3:45 PM EDT) Narrative Beth Colunag - 04/08/2018 3:45 PM EDT Beth Colunga ? 04/08/2018 ??3:45 PM [facility] Department of Neurology In Patient Routine EEG [...] channel digitized electroencephalogram was performed in the [facility] Clinical Neurophysiology Laboratory. The 10/20 international system of electrode placement was used and bipolar and referential electrode montages were recorded. ??In addition to EEG the patient was monitored for EKG and lateral/vertical eye movements. Video was recorded during the session. The duration of the recording was 30 minutes. EVENTS SPECIALIST'S REPORT: Performed by: AT Patient was not sleep deprived. Sleep was not attained. Photic stimulation was performed. Hyperventilation was not performed. Effort was was not adequate. Movement and other artifact was not significant. Comments: none Lida Peter MD NEUROLOGY ORDERABLES * Carotid Duplex, Bilateral (04/08/2018 2:49 PM EDT) VB Text Report Department: Vascular Surgery Lab Patient: [id number] (ARNOL, CHRISTY) CPT: 04220 ICD10: I63.9 Referring Physician: LIDA PETER ?? [...] VASCULAR ORDERABLES Performing Organization Address [facility]/ZIP Co de Phone Number [facility] * (ABNORMAL) Levetiracetam level (04/08/2018 1:55 PM EDT) Levetiracetam Lvl (NOVEMBER) 47.4(H) 12.0 - 46.0 mcg/mL [facility] Comment: ADDITIONAL INFORMATION This test was developed and its performance characteristics determined by [facility] in a manner consistent with CLIA requirements. This test has not been cleared or approved by the U.S. Food and Drug Administration. Test Performed by: [facility] [address] [place] [address] Blood specimen (specimen) 04/08/2018 1:55 PM EDT 04/08/2018 3:54 PM EDT Narrative Resulting Agency Comment Spec In Lab Lida Peter MD LAB SEND OUT ORDERAB LES Performing Organization Address [facility] Co de Phone Number [facility] [place] [address] * Prepare RBC (04/08/2018 11:15 AM EDT) Dispensed? No [facility] Blood specimen (specimen) 04/08/2018 11:15 AM EDT 04/08/2018 11:11 AM EDT Lida Peter MD BLOOD BANK PRODUCT O RDERABLES Performing Organization Address City/[facility]/ZIP Co de Phone Number [facility] [place] [address] * Prepare RBC (04/08/2018 11:15 AM EDT) Dispensed? Yes [facility] Blood specimen (specimen) 04/08/2018 11:15 AM EDT 04/08/2018 11:11 AM EDT Lida Peter MD BLOOD BANK PRODUCT O RDERABLES Performing Organization Address [facility] Co de Phone Number [facility] [place] [address] * (ABNORMAL) APTT (04/08/2018 10:45 AM EDT) Partial Thromboplastin Time 38(H) 25 - 37 sec [facility] MD HEMATOLOGY ORDERABLE S Performing Organization Address [facility] Co de Phone Number [facility] [place] [address] * (ABNORMAL) Prothrombin Time (04/08/2018 10:45 AM EDT) Prothrombin Time 51.2(H) 9.4 - 12.5 sec [facility] International Normalization Ratio 4.5 [facility] Comment: An INR [...] MD HEMATOLOGY ORDERABLE S Performing Organization Address City/[facility]/ZIP Co de Phone Number [facility] [place] [address] * (ABNORMAL) CK (04/08/2018 10:45 AM EDT) Creatine Kinase 646(H) 0 - 200 unit/L [facility] Blood specimen (specimen) 04/08/2018 10:45 AM EDT 04/08/2018 10:55 AM EDT Narrative Resulting Agency Comment Spec In Lab Lida Peter MD CHEMISTRY ORDERABLES Performing Organization Address [facility] Co de Phone Number [facility] [place] [address] * (ABNORMAL) Hemoglobin and Hematocrit, blood (04/08/2018 10:45 AM EDT) Hemoglobin 7.2(L) 13.7 - 16.5 gm/dL [facility] Hematocrit 21.3(L) 40.5 - 48.5 % [facility] Blood specimen (specimen) 04/08/2018 10:45 AM EDT 04/08/2018 10:55 AM EDT Narrative Resulting Agency Comment Spec In Lab Lida Peter MD HEMATOLOGY ORDERABLE S Performing Organization Address City/[facility]/ZIP Co de Phone Number [facility] [place] [address] * Tacrolimus level (04/08/2018 8:30 AM EDT) Tacrolimus 2.1 ng/mL [facility] Comment: Trough therapeutic: ??5-15 ng/mL Performed by ultra-performance liquid chromatography tandem mass spectrometry (UPLCMS/MS). This test was developed and its performance characteristics determined by [facility]. It has not been [...] CHEMISTRY ORDERABLES Performing Organization Address [facility]/[place]IP [place] [address] * Prepare RBC (04/08/2018 4:55 AM EDT) Dispensed? Yes [facility] Blood specimen (specimen) 04/08/2018 4:55 AM EDT 04/08/2018 4:59 AM EDT Lida Peter MD BLOOD BANK PRODUCT O RDERABLES Performing Organization Address [facility]/ZIP Co de Phone Number [facility] [place] [address] * Blue Tube HOLD (04/08/2018 4:05 AM EDT) Blue Hold Sample in lab. [facility] Blood specimen (specimen) Venous Draw / Unknown 04/08/2018 4:05 AM EDT 04/08/2018 4:21 AM EDT Apple Gutierrez MD HEMATOLOGY ORDERABLE S Performing Organization Address [facility]/ZIP Co de Phone Number [facility] [place] [address] * (ABNORMAL) Differential, Automated (04/08/2018 4:05 AM EDT) Neutrophil % 81.8 % [facility] Neutrophil Absolute 7.13(H) 1.70 - 6.10 x10(3)/mc L [facility] Lymph % 8.0 % [facility] Lymphocytes Abs 0.7(L) 0.9 - 3.2 x10(3)/[facility] Monocyte % 7.9 % [facility] Monocyte Abs 0.7 0.3 - 0.9 x10(3)/[facility] Eos % 1.8 % [facility] Eosinophils Abs 0.2 0.0 - 0.4 x10(3)/[facility] Basophil % 0.2 % [facility] Baso Absolute 0.0 0.0 - 0.1 x10(3)/[facility] Immature Gran % 0.30 % [facility] Comment: Immature granulocytes(IG's)percentage and absolute count will include metamyelocytes, myelocytes, and promyelocytes. Blood smears from CBCs yielding IG's will be scanned manually for concordance. If this scan disagrees with the automated IG or if promyelocytes are noted, a manual differential will be performed. Immature Gran Absolute 0.03 0.00 - 0.04 x10(3)/[facility] Blood specimen (specimen) 04/08/2018 4:05 AM EDT 04/08/2018 4:21 AM EDT Narrative Resulting Agency Comment Spec In Lab Apple Gutierrez MD HEMATOLOGY ORDERABLE S [facility] [place] [address] * (ABNORMAL) Hemogram (04/08/2018 4:05 AM EDT) White Blood Cell 8.7 4.0 - 9.5 x10(3)/[facility] Red Blood Cell 2.26(L) 4.58 - 5.54 x10(6)/[facility] Hemoglobin 6.8(L) 13.7 - 16.5 gm/dL [facility] Hematocrit 20.4(L) 40.5 - 48.5 % [facility] Mean Cell Volume 90.3 82.9 - 93.1 fL [facility] Mean Cell Hemoglobin 30.1 27.5 - 32.1 pg [facility] Mean Cell Hemoglobin Concentration 33.3 32.0 - 35.7 gm/dL [facility] Platelet 94(L) 145 - 357 x10(3)/mc L [facility] RDW Standard Deviation 57.9(H) 36.0 - 45.0 fL [facility] RDW coefficient of variation 17.7(H) 11.4 - 13.8 % [facility] Mean Platelet Volume 9.7 7.6 - 12.9 [facility] NRBC% auto 0.0 % [facility] NRBC Absolute 0.000 0.000 - 0.000 x10(3)/mc L [facility] Blood specimen (specimen) 04/08/2018 4:05 AM EDT 04/08/2018 4:21 AM EDT Narrative Resulting Agency Comment Spec In Lab Apple Gutierrez MD HEMATOLOGY ORDERABLE S [facility] [place] [address] * (ABNORMAL) Basic Metabolic Panel (non-fasting) (04/08/2018 4:05 AM EDT) Glucose 120 65 - 199 mg/dL [facility] Comment:Diabetes: >=200 mg/d L plus symptoms Blood Urea Nitrogen 47(H) 10 - 20 mg/dL [facility] Creatinine 2.93(H) 0.80 - 1.50 mg/dL [facility] Sodium 144 135 - 145 mmol/L [facility] Potassium 5.4(H) 3.5 - 5.0 mmol/L [facility] Comment: Please note: ??Patients with WBC >100,000 may have falsely elevated Potassium levels. ??For accurate Potassium quantification in these patients send serum separator tube (gold top) for subsequent determinations. ??Contact the Clinical Chemistry Laboratory if there are any questions. Chloride 115(H) 98 - 107 mmol/L [facility] Carbon Dioxide 16(L) 22 - 31 mmol/L [facility] Anion Gap 13 5 - 15 mmol/L [facility] Calcium 7.1(L) 8.5 - 10.5 mg/dL [facility] Comment:result rechecked-KS Est Glomerular Filtration Rate 23(L) >=60 mL/min/1. 73 m?? [facility] Comment: The eGFR was calculated using the CKD-EPI equation. As with all creatinine based estimates of kidney function, eGFR values calculated with the CKD-EPI equation are not accurate in patients with acute kidney failure, extremes of body mass or the acutely ill. [email or web address] eGFR 26(L) >=60 mL/min/1. 73 m?? [facility] Comment: The eGFR was calculated using the CKD-EPI equation. As with all creatinine based estimates of kidney function, eGFR values calculated with the CKD-EPI equation are not accurate in patients with acute kidney failure, extremes of body mass or the acutely ill. [email or web address] Blood specimen (specimen) 04/08/2018 4:05 AM EDT 04/08/2018 4:21 AM EDT Narrative Resulting Agency Comment Spec In Lab Hay Sparks MD CHEMISTRY ORDERABLES [facility] [place] [address] * MRI Brain wo Contrast (04/07/2018 9:11 [...] thoracic and lumbar spine were performed at [facility] on 04/06/2018. COMPARISON: CT chest and [...] thoracic and lumbar spine were performed at [facility] on 04/06/2018. COMPARISON: CT chest and [...] Glucose, POC 136 65 - 199 mg/dL [facility] Comment: Supplemental ranges: <140 mg/dL before meals <180 mg/dL all other times of the day Blood specimen (specimen) 04/07/2018 5:56 AM EDT 04/07/2018 5:56 AM EDT Lida Peter MD POINT OF CARE TEST O RDERABLES [facility] [place] [address] * (ABNORMAL) Cardiac Enzymes (LEB/CGP) (04/07/2018 5:55 AM EDT) Pathologist [facility] Troponin-T 0.15(H) 0.00 - 0.00 ng/mL [facility] Comment: The 99th percentile for Troponin T is less than 0.01 ng/mL, any detectable cTnT concentration using this assay should be considered elevated. According to the third universal definition of myocardial infarction the following criteria with a clinical presentation consistent with acute myocardial ischemia meets the diagnosis for a myocardial infarction (TN). Detection of a rise and/or fall of cTnT, with at least one value greater than the 99th percentile (> or = 0.01) and with at least one of the following ?? Symptoms of ischemia ?? New or presumed new significant NM-nqziaon-N wave (ST-T) changes or new left bundle [...] additional sample may be indicated. Reference: Third Monument Definition of Myocardial Infarction. Journal of the [place] [employer] 2012;60:1581-98 Creatine Kinase 700(H) 0 - 200 unit/L [facility] Blood specimen (specimen) 04/07/2018 5:55 AM EDT 04/07/2018 6:34 AM EDT Narrative Resulting Agency Comment Spec In Lab Lida Peter MD CHEMISTRY ORDERABLES Performing Organization Address [facility]/ZIP Co de Phone Number [facility] [place] [address] * (ABNORMAL) CK (04/07/2018 5:55 AM EDT) Creatine Kinase 699(H) 0 - 200 unit/L [facility] Blood specimen (specimen) 04/07/2018 5:55 AM EDT 04/07/2018 6:03 AM EDT Narrative Resulting Agency Comment Spec In Lab Lida Peter MD CHEMISTRY ORDERABLES Performing Organization Address City/[facility]/ZIP Co de Phone Number [facility] [place] [address] * (ABNORMAL) Hemoglobin and Hematocrit, blood (04/07/2018 5:55 AM EDT) Hemoglobin 7.2(L) 13.7 - 16.5 gm/dL [facility] Hematocrit 21.2(L) 40.5 - 48.5 % [facility] Blood specimen (specimen) 04/07/2018 5:55 AM EDT 04/07/2018 6:03 AM EDT Narrative Resulting Agency Comment Spec In Lab Lida Peter MD HEMATOLOGY ORDERABLE S Performing Organization Address City/[facility]/ZIP Co de Phone Number [facility] [place] [address] * Lactate, whole blood, send to lab (Leb/CGP) (04/07/2018 5:55 AM EDT) Pathologist [facility] Lactate WB 1.2 0.5 - 2.2 mmol/L [facility] Blood specimen (specimen) 04/07/2018 5:55 AM EDT 04/07/2018 6:03 AM EDT Narrative Resulting Agency Comment Spec In Lab Lida Peter MD CHEMISTRY ORDERABLES Performing Organization Address [facility] Co de Phone Number [facility] [place] [address] * (ABNORMAL) Basic Metabolic Panel (non-fasting) (04/07/2018 4:30 AM EDT) [facility] Glucose 124 65 - 199 mg/dL [facility] Comment:Diabetes: >=200 mg/d L plus symptoms Blood Urea Nitrogen 50(H) 10 - 20 mg/dL [facility] Creatinine 2.68(H) 0.80 - 1.50 mg/dL [facility] Sodium 143 135 - 145 mmol/L [facility] Potassium 5.4(H) 3.5 - 5.0 mmol/L [facility] Comment: Please note: ??Patients with WBC >100,000 may have falsely elevated Potassium levels. ??For accurate Potassium quantification in these patients send serum separator tube (gold top) for subsequent determinations. ??Contact the Clinical Chemistry Laboratory if there are any questions. Chloride 116(H) 98 - 107 mmol/L [facility] Carbon Dioxide 16(L) 22 - 31 mmol/L [facility] Anion Gap 11 5 - 15 mmol/L [facility] Calcium 7.0(L) 8.5 - 10.5 mg/dL [facility] Est Glomerular Filtration Rate 25(L) >=60 mL/min/1. 73 m?? [facility] Comment: The eGFR was calculated using the CKD-EPI equation. As with all creatinine based estimates of kidney function, eGFR values calculated with the CKD-EPI equation are not accurate in patients with acute kidney failure, extremes of body mass or the acutely ill. [email or web address] [email or web address] eGFR 29(L) >=60 mL/min/1. 73 m?? [facility] Comment: The eGFR was calculated using the CKD-EPI equation. As with all creatinine based estimates of kidney function, eGFR values calculated with the CKD-EPI equation are not accurate in patients with acute kidney failure, extremes of body mass or the acutely ill. [email or web address] Blood specimen (specimen) 04/07/2018 4:30 AM EDT 04/07/2018 4:34 AM EDT Narrative Resulting Agency Comment Spec In Lab Lida Peter MD CHEMISTRY ORDERABLES Performing Organization Address [facility] Co de Phone Number [facility] [place] [address] * POCT Glucose (04/07/2018 3:35 AM EDT) [facility] Glucose, POC 131 65 - 199 mg/dL [facility] Comment: Supplemental ranges: <140 mg/dL before meals <180 mg/dL all other times of the day Blood specimen (specimen) 04/07/2018 3:35 AM EDT 04/07/2018 3:35 AM EDT Lida Peter MD POINT OF CARE TEST O RDERABLES Performing Organization Address [facility]/ZIP Co de Phone Number [facility] [place] [address] * Lactate, whole blood, send to lab (Leb/CGP) (04/07/2018 12:15 AM EDT) [facility] Lactate WB 1.5 0.5 - 2.2 mmol/L [facility] Blood specimen (specimen) 04/07/2018 12:15 AM EDT 04/07/2018 12:21 AM EDT Narrative Resulting Agency Comment Spec In Lab Lida Peter MD CHEMISTRY ORDERABLES Performing Organization Address [facility] Co de Phone Number [facility] [place] [address] * (ABNORMAL) CK (04/07/2018 12:15 AM EDT) Creatine Kinase 608(H) 0 - 200 unit/L [facility] Comment:result rechecked-RR Blood specimen (specimen) 04/07/2018 12:15 AM EDT 04/07/2018 12:21 AM EDT Narrative Resulting Agency Comment Spec In Lab Lida Peter MD CHEMISTRY ORDERABLES Performing Organization Address [facility] Co de Phone Number [facility] [place] [address] * (ABNORMAL) Hemoglobin and Hematocrit, blood (04/07/2018 12:15 AM EDT) Hemoglobin 7.9(L) 13.7 - 16.5 gm/dL [facility] Hematocrit 23.1(L) 40.5 - 48.5 % [facility] Blood specimen (specimen) 04/07/2018 12:15 AM EDT 04/07/2018 12:21 AM EDT Narrative Resulting Agency Comment Spec In Lab Lida Peter MD HEMATOLOGY ORDERABLE S Performing Organization Address [facility] Co de Phone Number [facility] [place] [address] * (ABNORMAL) Basic Metabolic Panel (non-fasting) (04/07/2018 12:15 AM EDT) Glucose 167 65 - 199 mg/dL [facility] Comment:Diabetes: >=200 mg/d L plus symptoms Blood Urea Nitrogen 48(H) 10 - 20 mg/dL [facility] Creatinine 2.58(H) 0.80 - 1.50 mg/dL [facility] Sodium 143 135 - 145 mmol/L [facility] Potassium 6.1(Criti constance) 3.5 - 5.0 mmol/L [facility] Comment: Called by: RUPINDER, Read back by: EVELIN CALLEJAS, Date/Time:04/07/18 01:06. Please note: ??Patients with WBC >100,000 may have falsely elevated Potassium levels. ??For accurate Potassium quantification in these patients send serum separator tube (gold top) for subsequent determinations. ??Contact the Clinical Chemistry Laboratory if there are any questions. Chloride 117(H) 98 - 107 mmol/L [facility] Carbon Dioxide 15(L) 22 - 31 mmol/L [facility] Anion Gap 11 5 - 15 mmol/L [facility] Calcium 6.8(Criti constance) 8.5 - 10.5 mg/dL [facility] Comment:Called by: RUPINDER, Read back by: EVELIN CALLEJAS, Date/Time:04/07/18 01:06. Est Glomerular Filtration Rate 27(L) >=60 mL/min/1. 73 m?? [facility] Comment: The eGFR was calculated using the CKD-EPI equation. As with all creatinine based estimates of kidney function, eGFR values calculated with the CKD-EPI equation are not accurate in patients with acute kidney failure, extremes of body mass or the acutely ill. [email or web address] eGFR 31(L) >=60 mL/min/1. 73 m?? [facility] Comment: The eGFR was calculated using the CKD-EPI equation. As with all creatinine based estimates of kidney function, eGFR values calculated with the CKD-EPI equation are not accurate in patients with acute kidney failure, extremes of body mass or the acutely ill. [email or web address] Blood specimen (specimen) 04/07/2018 12:15 AM EDT 04/07/2018 12:21 AM EDT Narrative Resulting Agency Comment Spec In Lab Lida Peter MD CHEMISTRY ORDERABLES Performing Organization Address [facility] Co de Phone Number [facility] [place] [address] * POCT Glucose (04/06/2018 8:30 PM EDT) Glucose, POC 177 65 - 199 mg/dL [facility] Comment: Supplemental ranges: <140 mg/dL before meals <180 mg/dL all other times of the day Blood specimen (specimen) 04/06/2018 8:30 PM EDT 04/06/2018 8:30 PM EDT Lida Peter MD POINT OF CARE TEST O RDERABLES Performing Organization Address [facility] Co de Phone Number [facility] [place] [address] * Request For 2nd Read CT Chest [...] the chest, abdomen, and pelvis performed at [facility] on 04/06/2018. 5 mm [...] Spleen: Normal. Kidneys/Adrenals: The RIGHT and LEFT [place] kidneys are severely atrophic. The patient status [...] Spleen: Normal. Kidneys/Adrenals: The RIGHT and LEFT [place] kidneys are severely atrophic.The patient status post [...] 5:40 PM EDT) Neutrophil % 85.6 % [facility] Neutrophil Absolute 7.32(H) 1.70 - 6.10 x10(3)/mc L [facility] Lymph % 4.8 % [facility] Lymphocytes Abs 0.4(L) 0.9 - 3.2 x10(3)/mc L [facility] Monocyte % 9.1 % [facility] Monocyte Abs 0.8 0.3 - 0.9 x10(3)/mc L [facility] Eos % 0.0 % [facility] Eosinophils Abs 0.0 0.0 - 0.4 x10(3)/mc L [facility] Basophil % 0.0 % [facility] Baso Absolute 0.0 0.0 - 0.1 x10(3)/mc L [facility] Immature Gran % 0.50 % [facility] Comment: Immature granulocytes(IG's)percentage and absolute count will include metamyelocytes, myelocytes, and promyelocytes. Blood smears from CBCs yielding IG's will be scanned manually for concordance. If this scan disagrees with the automated IG or if promyelocytes are noted, a manual differential will be performed. Immature Gran Absolute 0.04 0.00 - 0.04 x10(3)/ L [facility] Blood specimen (specimen) 04/06/2018 5:40 PM EDT 04/06/2018 6:01 PM EDT Narrative Resulting Agency Comment Spec In Lab Natalya Minaya MD HEMATOLOGY ORDERABLE S [facility] [place] [address] * (ABNORMAL) Hemogram (04/06/2018 5:40 PM EDT) White Blood Cell 8.6 4.0 - 9.5 x10(3)/[facility] Red Blood Cell 2.56(L) 4.58 - 5.54 x10(6)/[facility] Hemoglobin 7.8(L) 13.7 - 16.5 gm/dL [facility] Hematocrit 23.1(L) 40.5 - 48.5 % [facility] Mean Cell Volume 90.2 82.9 - 93.1 [facility] Mean Cell Hemoglobin 30.5 27.5 - 32.1 pg [facility] Mean Cell Hemoglobin Concentration 33.8 32.0 - 35.7 gm/dL [facility] Platelet 95(L) 145 - 357 x10(3)/[facility] RDW Standard Deviation 53.6(H) 36.0 - 45.0 [facility] RDW coefficient of variation 16.6(H) 11.4 - 13.8 % [facility] Mean Platelet Volume 9.5 7.6 - 12.9 [facility] NRBC% auto 0.0 % [facility] NRBC Absolute 0.000 0.000 - 0.000 x10(3)/[facility] Blood specimen (specimen) 04/06/2018 5:40 PM EDT 04/06/2018 6:01 PM EDT Narrative Resulting Agency Comment Spec In Lab Natalya Minaya MD HEMATOLOGY ORDERABLE S Performing Organization Address [facility] Co de Phone Number [facility] [place] [address] * Phosphorus (04/06/2018 5:40 PM EDT) Phosphorus 3.3 2.5 - 4.5 mg/dL [facility] Blood specimen (specimen) 04/06/2018 5:40 PM EDT 04/06/2018 6:01 PM EDT Narrative Resulting Agency Comment Spec In Lab Lida Peter MD CHEMISTRY ORDERABLES Performing Organization Address [facility] Co de Phone Number [facility] [place] [address] * (ABNORMAL) Magnesium (04/06/2018 5:40 PM EDT) Magnesium 0.60(L) 0.69 - 1.07 mmol/L [facility] Blood specimen (specimen) 04/06/2018 5:40 PM EDT 04/06/2018 6:01 PM EDT Narrative Resulting Agency Comment Spec In Lab Lida Peter MD CHEMISTRY ORDERABLES Performing Organization Address [facility] Co de Phone Number [facility] [place] [address] * (ABNORMAL) Cardiac Enzymes (LEB/CGP) (04/06/2018 5:40 PM EDT) Troponin-T 0.20(H) 0.00 - 0.00 ng/mL [facility] Comment: The 99th percentile for Troponin T is less than 0.01 ng/mL, any detectable cTnT concentration using this assay should be considered elevated. According to the third universal definition of myocardial infarction the following criteria with a clinical presentation consistent with acute myocardial ischemia meets the diagnosis for a myocardial infarction (TN). Detection of a rise and/or fall of cTnT, with at least one value greater than the 99th percentile (> or = 0.01) and with at least one of the following ?? Symptoms of ischemia ?? New or presumed new significant VF-yiinesc-A wave (ST-T) changes or new left bundle [...] additional sample may be indicated. Reference: Third Monument Definition of Myocardial Infarction. Journal of the [place] [employer] 2012;60:1581-98 Creatine Kinase 249(H) 0 - 200 unit/L [facility] Blood specimen (specimen) 04/06/2018 5:40 PM EDT 04/06/2018 6:01 PM EDT Narrative Resulting Agency Comment Spec In Lab Lida Peter MD CHEMISTRY ORDERABLES [facility] [place] [address] * (ABNORMAL) CMP w/fasting Glucose (04/06/2018 5:40 PM EDT) Glucose Fasting 140(H) 65 - 99 mg/dL [facility] Comment: ?Fasting* Glucose Interpretive Criteria [...] of Diabetes Mellitus, Position Statement from the [place] [employer]. ??Diabetes Care, Volume 33, Supplement 1, Jul 2009 Blood Urea Nitrogen 45(H) 10 - 20 mg/dL [facility] Creatinine 2.48(H) 0.80 - 1.50 mg/dL [facility] Sodium 145 135 - 145 mmol/L [facility] Potassium 5.2(H) 3.5 - 5.0 mmol/L [facility] Comment: Please note: ??Patients with WBC >100,000 may have falsely elevated Potassium levels. ??For accurate Potassium quantification in these patients send serum separator tube (gold top) for subsequent determinations. ??Contact the Clinical Chemistry Laboratory if there are any questions. Chloride 118(H) 98 - 107 mmol/L [facility] Carbon Dioxide 16(L) 22 - 31 mmol/L [facility] Anion Gap 11 5 - 15 mmol/L [facility] Calcium 6.7(Criti constance) 8.5 - 10.5 mg/dL [facility] Comment:Calcium not critical when adjusted for albumin concentration. Protein, Total 4.3(L) 6.1 - 8.0 gm/dL [facility] Albumin 2.3(L) 3.2 - 5.2 gm/dL [facility] Aspartate Aminotransferase 22 0 - 39 unit/L [facility] Alanine Aminotransferase 20 0 - 55 unit/L [facility] Alkaline Phosphatase 57 40 - 120 unit/L [facility] Bilirubin, Total 0.3 0.2 - 1.3 mg/dL [facility] Est Glomerular Filtration Rate 28(L) >=60 mL/min/1. 73 m?? [facility] Comment: The eGFR was calculated using the CKD-EPI equation. As with all creatinine based estimates of kidney function, eGFR values calculated with the CKD-EPI equation are not accurate in patients with acute kidney failure, extremes of body mass or the acutely ill. [email or web address] eGFR 32(L) >=60 mL/min/1. 73 m?? [facility] Comment: The eGFR was calculated using the CKD-EPI equation. As with all creatinine based estimates of kidney function, eGFR values calculated with the CKD-EPI equation are not accurate in patients with acute kidney failure, extremes of body mass or the acutely ill. [email or web address] Blood specimen (specimen) 04/06/2018 5:40 PM EDT 04/06/2018 6:01 PM EDT Narrative Resulting Agency Comment Spec In Lab Lida Peter MD CHEMISTRY ORDERABLES Performing Organization Address [facility] Co de Phone Number [facility] [place] [address] * APTT (04/06/2018 5:40 PM EDT) Partial Thromboplastin Time 30 25 - 37 sec [facility] ORDERABLE S Performing Organization Address [facility] Co de Phone Number [facility] [place] [address] * (ABNORMAL) Prothrombin Time (04/06/2018 5:40 PM EDT) Prothrombin Time 24.1(H) 9.4 - 12.5 sec [facility] International Normalization Ratio 2.2 [facility] Comment: An INR [...] Lab Lida Peter MD HEMATOLOGY ORDERABLE S [facility] [place] [address] * (ABNORMAL) BLOOD GAS 2 ARTERIAL (04/06/2018 5:24 PM EDT) pH, Arterial 7.29(Crit ical) 7.35 - 7.45 [facility] Comment:Noted by optical instrument assembly supervisor. PCO2, Arterial 31(L) 35 - 45 mmHg [facility] PO2, Arterial 65(L) 85 - 104 mmHg [facility] Bicarbonate, Arterial 15.2(L) 20.0 - 26.0 mmol/L [facility] Base Excess, Arterial -11.8(L) -3.0 - 3.0 mmol/L [facility] Hgb Blood Gas 8.4(L) 13.7 - 16.5 gm/dL [facility] Oxyhemoglobin, Arterial 93.0(L) 94.0 - 97.0 % [facility] Carboxyhemoglo bin, Arterial 0.3 % [facility] Comment: Nonsmokers: 0.5-1.5% COHB Smokers: Variable, but usually less than 10% Toxic: 20-30% COHB Lethal: Greater than 60% COHB Methemoglobin, Arterial 0.9 <=1.5 % [facility] Na Whole Blood 140 135 - 145 mmol/L [facility] K Whole Blood 5.0 3.5 - 5.0 mmol/L [facility] Comment: Please note: Patients with WBC >100,000 may have falsely elevated Potassium levels. Contact the Clinical Chemistry Laboratory if there are any questions. ICa Whole Blood 1.03(L) 1.15 - 1.33 mmol/L [facility] Comment: Note: ??Total bilirubin higher than 20 mg/dL may lead to falsely low ionized calcium. CL Whole Blood 119(H) 98 - 107 mmol/L [facility] Gluc Whole Bld 141 65 - 199 mg/dL [facility] Comment:Diabetes: >=200 mg/d L plus symptoms. Lactate WB 2.4(H) 0.5 - 2.2 mmol/L [facility] FIO2 Art 50 % [facility] PF Ratio Art 130 [facility] Temp Art 34.8 Celsius [facility] Blood specimen (specimen) 04/06/2018 5:24 PM EDT 04/06/2018 5:24 PM EDT Lida Peter MD POINT OF CARE TEST O RDERABLES Performing Organization Address [facility] Co de Phone Number [facility] [place] [address] * POCT Glucose (04/06/2018 5:10 PM EDT) Glucose, POC 147 65 - 199 mg/dL [facility] Comment: Supplemental ranges: <140 mg/dL before meals <180 mg/dL all other times of the day Blood specimen (specimen) 04/06/2018 5:10 PM EDT 04/06/2018 5:10 PM EDT Lida Peter MD POINT OF CARE TEST O RDERABLES Performing Organization Address [facility] Co de Phone Number [facility] [place] [address] * (ABNORMAL) BLOOD GAS 2 ARTERIAL (04/06/2018 4:04 PM EDT) pH, Arterial 7.27(Criti constance) 7.35 - 7.45 [facility] Comment:Noted by optical instrument assembly supervisor. PCO2, Arterial 34(L) 35 - 45 mmHg [facility] PO2, Arterial 152(H) 85 - 104 mmHg [facility] Bicarbonate, Arterial 15.2(L) 20.0 - 26.0 mmol/L [facility] Base Excess, Arterial -11.8(L) -3.0 - 3.0 mmol/L [facility] Hgb Blood Gas 8.1(L) 13.7 - 16.5 gm/dL [facility] Oxyhemoglobin, Arterial 97.7(H) 94.0 - 97.0 % [facility] Carboxyhemoglob in, Arterial 0.5 % [facility] Comment: Nonsmokers: 0.5-1.5% COHB Smokers: Variable, but usually less than 10% Toxic: 20-30% COHB Lethal: Greater than 60% COHB Methemoglobin, Arterial 0.3 <=1.5 % [facility] Na Whole Blood 140 135 - 145 mmol/L [facility] K Whole Blood 4.6 3.5 - 5.0 mmol/L [facility] Comment: Please note: Patients with WBC >100,000 may have falsely elevated Potassium levels. Contact the Clinical Chemistry Laboratory if there are any questions. ICa Whole Blood 1.01(L) 1.15 - 1.33 mmol/L [facility] Comment: Note: ??Total bilirubin higher than 20 mg/dL may lead to falsely low ionized calcium. CL Whole Blood 118(H) 98 - 107 mmol/L [facility] Gluc Whole Bld 137 65 - 199 mg/dL [facility] Comment:Diabetes: >=200 mg/d L plus symptoms. Lactate WB 3.1(H) 0.5 - 2.2 mmol/L [facility] Blood specimen (specimen) 04/06/2018 4:04 PM EDT 04/06/2018 4:04 PM EDT Lida Peter MD POINT OF CARE TEST O RDERABLES [facility] [place] [address] * Scan, Peripheral Blood (04/06/2018 3:53 PM EDT) Pathologist [facility] Plat estimate Decreased [facility] RBC Morphology Abnormal [facility] Ovalocytes 1-5 /HPF [facility] [place]on Cells 1-5 /HPF [facility] Blood specimen (specimen) 04/06/2018 3:53 PM EDT 04/06/2018 4:05 PM EDT Narrative Resulting Agency Comment Spec In Lab Lida Peter MD HEMATOLOGY ORDERABLE S [facility] [place] [address] * (ABNORMAL) Differential, Automated (04/06/2018 3:53 PM EDT) [facility] Neutrophil % 80.4 % [facility] Neutrophil Absolute 8.28(H) 1.70 - 6.10 x10(3)/mc L [facility] Lymph % 6.8 % [facility] Lymphocytes Abs 0.7(L) 0.9 - 3.2 x10(3)/mc L [facility] Monocyte % 11.9 % [facility] Monocyte Abs 1.2(H) 0.3 - 0.9 x10(3)/mc L [facility] Eos % 0.0 % [facility] Eosinophils Abs 0.0 0.0 - 0.4 x10(3)/mc L [facility] Basophil % 0.1 % [facility] Baso Absolute 0.0 0.0 - 0.1 x10(3)/mc L [facility] Immature Gran % 0.80 % [facility] Comment: Immature granulocytes(IG's)percentage and absolute count will include metamyelocytes, myelocytes, and promyelocytes. Blood smears from CBCs yielding IG's will be scanned manually for concordance. If this scan disagrees with the automated IG or if promyelocytes are noted, a manual differential will be performed. Immature Gran Absolute 0.08(H) 0.00 - 0.04 x10(3)/mc L [facility] Blood specimen (specimen) 04/06/2018 3:53 PM EDT 04/06/2018 4:05 PM EDT Narrative Resulting Agency Comment Spec In Lab Lida Peter MD HEMATOLOGY ORDERABLE S [facility] [place] [address] * (ABNORMAL) Hemogram (04/06/2018 3:53 PM EDT) White Blood Cell 10.3(H) 4.0 - 9.5 x10(3)/ L [facility] Red Blood Cell 2.53(L) 4.58 - 5.54 x10(6)/ L [facility] Hemoglobin 7.7(L) 13.7 - 16.5 gm/dL [facility] Comment: This result has been called to MISAEL GRANT by Evon Woodard on 04 06 2018 at 1633, and has been read back. Hematocrit 23.2(L) 40.5 - 48.5 % [facility] Comment: This result has been called to MISAEL GRANT by Evon Woodard on 04 06 2018 at 1633, and has been read back. Mean Cell Volume 91.7 82.9 - 93.1 fL [facility] Mean Cell Hemoglobin 30.4 27.5 - 32.1 pg [facility] Mean Cell Hemoglobin Concentration 33.2 32.0 - 35.7 gm/dL [facility] Platelet 96(L) 145 - 357 x10(3)/ L [facility] RDW Standard Deviation 53.3(H) 36.0 - 45.0 fL [facility] RDW coefficient of variation 16.2(H) 11.4 - 13.8 % [facility] Mean Platelet Volume 9.0 7.6 - 12.9 fL [facility] NRBC% auto 0.0 % [facility] NRBC Absolute 0.000 0.000 - 0.000 x10(3)/mc L [facility] Blood specimen (specimen) 04/06/2018 3:53 PM EDT 04/06/2018 4:05 PM EDT Narrative Resulting Agency Comment Spec In Lab Lida Peter MD HEMATOLOGY ORDERABLE S Performing Organization Address [facility] Co de Phone Number [facility] [place] [address] * APTT (04/06/2018 3:53 PM EDT) Partial Thromboplastin Time 30 25 - 37 sec [facility] ORDERABLE S Performing Organization Address [facility] Co de Phone Number [facility] [place] [address] * (ABNORMAL) Prothrombin Time (04/06/2018 3:53 PM EDT) Prothrombin Time 22.5(H) 9.4 - 12.5 sec [facility] Comment:Called by: luisa, Read back by: donn thomas, Date/Time:04/06/18 16:20. International Normalization Ratio 2.0 [facility] Comment: An INR [...] Lab Lida Peter MD HEMATOLOGY ORDERABLE S [facility] [place] [address] * (ABNORMAL) BLOOD GAS 2 ARTERIAL (04/06/2018 3:41 PM EDT) pH, Arterial 7.22(Criti constance) 7.35 - 7.45 [facility] Comment:Noted by optical instrument assembly supervisor. PCO2, Arterial 39 35 - 45 mmHg [facility] PO2, Arterial 168(H) 85 - 104 mmHg [facility] Bicarbonate, Arterial 15.3(L) 20.0 - 26.0 mmol/L [facility] Base Excess, Arterial -12.4(L) -3.0 - 3.0 mmol/L [facility] LABORATORY Hgb Blood Gas 8.4(L) 13.7 - 16.5 gm/dL [facility] Oxyhemoglobin, Arterial 98.1(H) 94.0 - 97.0 % [facility] Carboxyhemoglob in, Arterial 0.2 % [facility] Comment: Nonsmokers: 0.5-1.5% COHB Smokers: Variable, but usually less than 10% Toxic: 20-30% COHB Lethal: Greater than 60% COHB Methemoglobin, Arterial 0.3 <=1.5 % [facility] Na Whole Blood 143 135 - 145 mmol/L [facility] K Whole Blood 4.6 3.5 - 5.0 mmol/L [facility] Comment: Please note: Patients with WBC >100,000 may have falsely elevated Potassium levels. Contact the Clinical Chemistry Laboratory if there are any questions. ICa Whole Blood 0.92(Criti constance) 1.15 - 1.33 mmol/L [facility] Comment: Noted by optical instrument assembly supervisor. Note: ??Total bilirubin higher than 20 mg/dL may lead to falsely low ionized calcium. CL Whole Blood 119(H) 98 - 107 mmol/L [facility] Gluc Whole Bld 158 65 - 199 mg/dL [facility] Comment:Diabetes: >=200 mg/d L plus symptoms. Lactate WB 3.2(H) 0.5 - 2.2 mmol/L [facility] Blood specimen (specimen) 04/06/2018 3:41 PM EDT 04/06/2018 3:41 PM EDT Lida Peter MD POINT OF CARE TEST O RDERABLES [facility] [place] [address] * (ABNORMAL) BLOOD GAS 2 ARTERIAL (04/06/2018 3:13 PM EDT) pH, Arterial 7.18(Criti constance) 7.35 - 7.45 [facility] Comment:Noted by optical instrument assembly supervisor. PCO2, Arterial 40 35 - 45 mmHg [facility] PO2, Arterial 228(H) 85 - 104 mmHg [facility] Bicarbonate, Arterial 14.8(L) 20.0 - 26.0 mmol/L [facility] Base Excess, Arterial -13.5(L) -3.0 - 3.0 mmol/L [facility] Hgb Blood Gas 9.4(L) 13.7 - 16.5 gm/dL [facility] Oxyhemoglobin, Arterial 98.3(H) 94.0 - 97.0 % [facility] Carboxyhemoglob in, Arterial 0.3 % [facility] Comment: Nonsmokers: 0.5-1.5% COHB Smokers: Variable, but usually less than 10% Toxic: 20-30% COHB Lethal: Greater than 60% COHB Methemoglobin, Arterial 0.3 <=1.5 % [facility] Na Whole Blood 141 135 - 145 mmol/L [facility] K Whole Blood 4.8 3.5 - 5.0 mmol/L [facility] Comment: Please note: Patients with WBC >100,000 may have falsely elevated Potassium levels. Contact the Clinical Chemistry Laboratory if there are any questions. ICa Whole Blood 1.12(L) 1.15 - 1.33 mmol/L [facility] Comment: Note: ??Total bilirubin higher than 20 mg/dL may lead to falsely low ionized calcium. CL Whole Blood 120(H) 98 - 107 mmol/L [facility] Gluc Whole Bld 125 65 - 199 mg/dL [facility] Comment:Diabetes: >=200 mg/d L plus symptoms. Lactate WB 2.8(H) 0.5 - 2.2 mmol/L [facility] Blood specimen (specimen) 04/06/2018 3:13 PM EDT 04/06/2018 3:13 PM EDT Lida Peter MD POINT OF CARE TEST O RDERABLES Performing Organization Address City/State/[facility] Co de Phone Number [facility] [place] [address] * (ABNORMAL) BLOOD GAS 2 ARTERIAL (04/06/2018 2:48 PM EDT) pH, Arterial 7.27(Criti constance) 7.35 - 7.45 [facility] Comment:Noted by optical instrument assembly supervisor. PCO2, Arterial 36 35 - 45 mmHg [facility] PO2, Arterial 379(H) 85 - 104 mmHg [facility] Bicarbonate, Arterial 16.1(L) 20.0 - 26.0 mmol/L [facility] Base Excess, Arterial -10.8(L) -3.0 - 3.0 mmol/L [facility] Hgb Blood Gas 9.7(L) 13.7 - 16.5 gm/dL [facility] Oxyhemoglobin, Arterial 98.5(H) 94.0 - 97.0 % [facility] Carboxyhemoglob in, Arterial 0.3 % [facility] Comment: Nonsmokers: 0.5-1.5% COHB Smokers: Variable, but usually less than 10% Toxic: 20-30% COHB Lethal: Greater than 60% COHB Methemoglobin, Arterial 0.3 <=1.5 % [facility] Na Whole Blood 142 135 - 145 mmol/L [facility] K Whole Blood 5.4(H) 3.5 - 5.0 mmol/L [facility] Comment: Please note: Patients with WBC >100,000 may have falsely elevated Potassium levels. Contact the Clinical Chemistry Laboratory if there are any questions. ICa Whole Blood 1.10(L) 1.15 - 1.33 mmol/L [facility] Comment: Note: ??Total bilirubin higher than 20 mg/dL may lead to falsely low ionized calcium. CL Whole Blood 117(H) 98 - 107 mmol/L [facility] Gluc Whole Bld 185 65 - 199 mg/dL [facility] Comment:Diabetes: >=200 mg/d L plus symptoms. Lactate WB 1.9 0.5 - 2.2 mmol/L [facility] Blood specimen (specimen) 04/06/2018 2:48 PM EDT 04/06/2018 2:48 PM EDT Lida Peter MD POINT OF CARE TEST O RDERABLES [facility] [place] [address] * (ABNORMAL) BLOOD GAS 2 ARTERIAL (04/06/2018 2:46 PM EDT) pH, Arterial 7.27(Criti constance) 7.35 - 7.45 [facility] Comment:Noted by optical instrument assembly supervisor. PCO2, Arterial 36 35 - 45 mmHg [facility] PO2, Arterial Not Perf 85 - 104 mmHg [facility] Bicarbonate, Arterial 16.2(L) 20.0 - 26.0 mmol/L [facility] Base Excess, Arterial -10.7(L) -3.0 - 3.0 mmol/L [facility] Hgb Blood Gas 9.3(L) 13.7 - 16.5 gm/dL [facility] Oxyhemoglobin, Arterial 98.9(H) 94.0 - 97.0 % [facility] Carboxyhemoglob in, Arterial 0.3 % [facility] Comment: Nonsmokers: 0.5-1.5% COHB Smokers: Variable, but usually less than 10% Toxic: 20-30% COHB Lethal: Greater than 60% COHB Methemoglobin, Arterial 0.3 <=1.5 % [facility] Na Whole Blood 143 135 - 145 mmol/L [facility] K Whole Blood 5.5(H) 3.5 - 5.0 mmol/L [facility] Comment: Please note: Patients with WBC >100,000 may have falsely elevated Potassium levels. Contact the Clinical Chemistry Laboratory if there are any questions. ICa Whole Blood 1.09(L) 1.15 - 1.33 mmol/L [facility] Comment: Note: ??Total bilirubin higher than 20 mg/dL may lead to falsely low ionized calcium. CL Whole Blood 118(H) 98 - 107 mmol/L [facility] Gluc Whole Bld 191 65 - 199 mg/dL [facility] Comment:Diabetes: >=200 mg/d L plus symptoms. Lactate WB 1.8 0.5 - 2.2 mmol/L [facility] Blood specimen (specimen) 04/06/2018 2:46 PM EDT 04/06/2018 2:46 PM EDT Lida Peter MD POINT OF CARE TEST O RDERABLES [facility] [place] [address] * (ABNORMAL) BLOOD GAS 2 ARTERIAL (04/06/2018 2:16 PM EDT) pH, Arterial 7.29(Criti constance) 7.35 - 7.45 [facility] Comment:Noted by optical instrument assembly supervisor. PCO2, Arterial 38 35 - 45 mmHg [facility] PO2, Arterial 423(H) 85 - 104 mmHg [facility] Bicarbonate, Arterial 17.9(L) 20.0 - 26.0 mmol/L [facility] Base Excess, Arterial -8.6(L) -3.0 - 3.0 mmol/L [facility] Hgb Blood Gas 9.7(L) 13.7 - 16.5 gm/dL [facility] Oxyhemoglobin, Arterial 98.7(H) 94.0 - 97.0 % [facility] Carboxyhemoglob in, Arterial 0.3 % [facility] Comment: Nonsmokers: 0.5-1.5% COHB Smokers: Variable, but usually less than 10% Toxic: 20-30% COHB Lethal: Greater than 60% COHB Methemoglobin, Arterial 0.3 <=1.5 % [facility] Na Whole Blood 137 135 - 145 mmol/L [facility] K Whole Blood 6.5(Critic al) 3.5 - 5.0 mmol/L [facility] Comment: Noted by optical instrument assembly supervisor. Please note: Patients with WBC >100,000 may have falsely elevated Potassium levels. Contact the Clinical Chemistry Laboratory if there are any questions. ICa Whole Blood 1.06(L) 1.15 - 1.33 mmol/L [facility] Comment: Note: ??Total bilirubin higher than 20 mg/dL may lead to falsely low ionized calcium. CL Whole Blood 117(H) 98 - 107 mmol/L [facility] Gluc Whole Bld 261(H) 65 - 199 mg/dL [facility] Comment:Diabetes: >=200 mg/d L plus symptoms. Lactate WB 1.1 0.5 - 2.2 mmol/L [facility] Blood specimen (specimen) 04/06/2018 2:16 PM EDT 04/06/2018 2:16 PM EDT Lida Peter MD POINT OF CARE TEST O RDERABLES Performing Organization Address [facility] Co de Phone Number [facility] [place] [address] * Anaerobic Culture (04/06/2018 2:15 PM EDT) Anaerobic Culture No anaerobic organisms isolated [facility] Fluid specimen (specimen) 04/06/2018 2:15 PM EDT 04/06/2018 2:34 PM EDT Comment:CULTURE LEFT ARM WOU ND Narrative Resulting Agency Comment Spec In Lab Lida Peter MD MICROBIOLOGY - GENER AL ORDERABLES Performing Organization Address [facility] Co de Phone Number [facility] [place] [address] * Body Fluid Culture, Aerobic (04/06/2018 2:15 PM EDT) Body Fluid Culture Few normal cutaneous shaina [facility] Gram Stain Few Neutrophils seen No microorganisms seen. [facility] Fluid specimen (specimen) 04/06/2018 2:15 PM EDT 04/06/2018 2:34 PM EDT Comment:CULTURE LEFT ARM WOU ND Narrative Resulting Agency Comment Spec In Lab Lida Peter MD MICROBIOLOGY - GENER AL ORDERABLES Performing Organization Address [facility] Co de Phone Number [facility] [place] [address] * (ABNORMAL) BLOOD GAS 2 ARTERIAL (04/06/2018 1:53 PM EDT) pH, Arterial 7.24(Criti constance) 7.35 - 7.45 [facility] Comment:Noted by optical instrument assembly supervisor. PCO2, Arterial 38 35 - 45 mmHg [facility] PO2, Arterial 388(H) 85 - 104 mmHg [facility] Bicarbonate, Arterial 15.7(L) 20.0 - 26.0 mmol/L [facility] Base Excess, Arterial -11.8(L) -3.0 - 3.0 mmol/L [facility] Hgb Blood Gas 10.8(L) 13.7 - 16.5 gm/dL [facility] Oxyhemoglobin, Arterial 98.8(H) 94.0 - 97.0 % [facility] Carboxyhemoglob in, Arterial 0.3 % [facility] Comment: Nonsmokers: 0.5-1.5% COHB Smokers: Variable, but usually less than 10% Toxic: 20-30% COHB Lethal: Greater than 60% COHB Methemoglobin, Arterial 0.3 <=1.5 % [facility] Na Whole Blood 141 135 - 145 mmol/L [facility] K Whole Blood 6.7(Critic al) 3.5 - 5.0 mmol/L [facility] Comment: Noted by optical instrument assembly supervisor. Please note: Patients with WBC >100,000 may have falsely elevated Potassium levels. Contact the Clinical Chemistry Laboratory if there are any questions. ICa Whole Blood 1.00(L) 1.15 - 1.33 mmol/L [facility] Comment: Note: ??Total bilirubin higher than 20 mg/dL may lead to falsely low ionized calcium. CL Whole Blood 117(H) 98 - 107 mmol/L [facility] Gluc Whole Bld 219(H) 65 - 199 mg/dL [facility] Comment:Diabetes: >=200 mg/d L plus symptoms. Lactate WB 1.2 0.5 - 2.2 mmol/L [facility] Blood specimen (specimen) 04/06/2018 1:53 PM EDT 04/06/2018 1:53 PM EDT Lida Peter MD POINT OF CARE TEST O RDERABLES [facility] [place] [address] * Request For 2nd Read CT Head [...] RBC, Urine 21(H) 0 - 3 /HPF [facility] WBC, Urine 8(H) 0 - 3 /HPF [facility] Bacteria, Urine Occasional (A) None /HPF [facility] Squamous Epithelial Cells Raw Data, Urine 1 <=4 /HPF [facility] Granular Casts, Urine 1(H) <=0 /LPF [facility] Urine specimen obtained by clean catch procedure (specimen) 04/06/2018 1:25 PM EDT 04/06/2018 1:30 PM EDT Narrative Resulting Agency Comment Spec In Lab Fabian Burkett MD URINE ORDERABLES [facility] [place] [address] * Rapid Drug Screen w/o Confirmation, Urine [...] marijuana metabolites screen detects the THC metabolite ([id number]-carboxy-delta 9-THC) at concentrations >20 ng/mL. A ? [...] In Lab Fabian Burkett MD CHEMISTRY ORDERABLES [facility] [place] [address] * (ABNORMAL) Urinalysis with reflex Culture (04/06/2018 1:25 PM EDT) Glucose, Urine Dipstick 50(A) Negative mg/dL [facility] Protein, [...] [facility] pH, Urn (dipstick) 6.0 5.0 - 8.0 [facility] Blood, Urine Dipstick Small(A) Negative mg/dL [facility] Ketone, Urine Dipstick Negative Negative mg/dL [facility] Nitrite, Urine Dipstick Negative Negative [facility] Leukocytes, Urine Dipstick Negative Negative mcL [facility] Appearance, Urine Dipstick Hazy(A) Clear [facility] Specific [place] [employer] Urine Automated 1.023 1.002 - 1.030 [facility] Color, Urine Dipstick Yellow Yellow [facility] Reflex to Culture No [facility] Urine specimen obtained by clean catch procedure (specimen) 04/06/2018 1:25 PM EDT 04/06/2018 1:30 PM EDT Narrative Resulting Agency Comment Spec In Lab Erwin Hernandez MD URINE ORDERABLES [facility] [place] [address] * Rapid Drug Screen, Urine (RAUL Request) (04/06/2018 1:25 PM EDT) RAUL Conf Requested No [facility] Comment: Collection date/time has been modified to: 13:25:00. ??Previous collection date/time: 13:03:00. Corrected from No [NA] on 04/06/18 01:32 by Crystal MuellerU Requested See Comment [facility] Comment: Refer to Rapid Drug Screen w/o Confirmation, Urine for results. Collection date/time has been modified to: 13:25:00. ??Previous collection date/time: 13:03:00. Corrected from See Comment [NA] on 04/06/18 01:32 by Crystal Mueller Urine specimen (specimen) 04/06/2018 1:25 PM EDT 04/06/2018 1:30 PM EDT Narrative Resulting Agency Comment Spec In Lab Erwin Hernandez MD URINE ORDERABLES Performing Organization Address City/[facility]/ZIP Co de Phone Number [facility] [place] [address] * CK (04/06/2018 1:15 PM EDT) Creatine Kinase 168 0 - 200 unit/L [facility] Blood specimen (specimen) Venous Draw / Unknown 04/06/2018 1:15 PM EDT 04/06/2018 2:22 PM EDT Narrative Resulting Agency Comment Spec In Lab Kavon Rob MD CHEMISTRY ORDERABLES Performing Organization Address City/[facility]/ZIP Co de Phone Number [facility] [place] [address] * Scan, Peripheral Blood (04/06/2018 1:15 PM EDT) Plat estimate Normal [facility] RBC Morphology Abnormal [facility] Ovalocytes 1-5 /HPF [facility] Yovanny Cells 1-5 /HPF [facility] Blood specimen (specimen) 04/06/2018 1:15 PM EDT 04/06/2018 1:24 PM EDT Narrative Resulting Agency Comment Spec In Lab Fabian Burkett MD HEMATOLOGY ORDERABLE S [facility] [place] [address] * ABORH Recheck Status (04/06/2018 1:15 PM EDT) ABORH Type Recheck Completed [facility] Blood specimen (specimen) 04/06/2018 1:15 PM EDT 04/06/2018 1:20 PM EDT Narrative Resulting Agency Comment Spec In Lab Fabian Burkett MD BLOOD BANK LAB ORDER KELLY [facility] [place] [address] * Blue Tube HOLD (04/06/2018 1:15 PM EDT) Blue Hold Sample in lab. [facility] Blood specimen (specimen) Venous Draw / Unknown 04/06/2018 1:15 PM EDT 04/06/2018 1:26 PM EDT Fabian Burkett MD HEMATOLOGY ORDERABLE S Performing Organization Address City/[facility]/ZIP Co de Phone Number [facility] [place] [address] * Gold Tube HOLD (04/06/2018 1:15 PM EDT) Gold Hold Sample in lab. [facility] Blood specimen (specimen) Venous Draw / Unknown 04/06/2018 1:15 PM EDT 04/06/2018 1:25 PM EDT Fabian Burkett MD CHEMISTRY ORDERABLES [facility] [place] [address] * Blue Tube HOLD (04/06/2018 1:15 PM EDT) Blue Hold Sample in lab. [facility] Blood specimen (specimen) Venous Draw / Unknown 04/06/2018 1:15 PM EDT 04/06/2018 1:26 PM EDT Fabian Burkett MD HEMATOLOGY ORDERABLE S [facility] [place] [address] * (ABNORMAL) Differential, Automated (04/06/2018 1:15 PM EDT) Neutrophil % 78.7 % [facility] Neutrophil Absolute 12.22(H) 1.70 - 6.10 x10(3)/mc L [facility] Lymph % 10.3 % [facility] Lymphocytes Abs 1.6 0.9 - 3.2 x10(3)/ L [facility] Monocyte % 9.8 % [facility] Monocyte Abs 1.5(H) 0.3 - 0.9 x10(3)/mc L [facility] Eos % 0.1 % [facility] Eosinophils Abs 0.0 0.0 - 0.4 x10(3)/[facility] Basophil % 0.2 % [facility] Baso Absolute 0.0 0.0 - 0.1 x10(3)/ L [facility] Immature Gran % 0.90 % [facility] Comment: Immature granulocytes(IG's)percentage and absolute count will include metamyelocytes, myelocytes, and promyelocytes. Blood smears from CBCs yielding IG's will be scanned manually for concordance. If this scan disagrees with the automated IG or if promyelocytes are noted, a manual differential will be performed. Immature Gran Absolute 0.14(H) 0.00 - 0.04 x10(3)/mc L [facility] Blood specimen (specimen) 04/06/2018 1:15 PM EDT 04/06/2018 1:24 PM EDT Narrative Resulting Agency Comment Spec In Lab Fabian Burkett MD HEMATOLOGY ORDERABLE S [facility] [place] [address] * (ABNORMAL) Hemogram (04/06/2018 1:15 PM EDT) White Blood Cell 15.5(H) 4.0 - 9.5 x10(3)/mc L [facility] Red Blood Cell 3.80(L) 4.58 - 5.54 x10(6)/mc L [facility] Hemoglobin 11.5(L) 13.7 - 16.5 gm/dL [facility] Hematocrit 35.2(L) 40.5 - 48.5 % [facility] Mean Cell Volume 92.6 82.9 - 93.1 fL [facility] Mean Cell Hemoglobin 30.3 27.5 - 32.1 pg [facility] Mean Cell Hemoglobin Concentration 32.7 32.0 - 35.7 gm/dL [facility] Platelet 145 145 - 357 x10(3)/mc L [facility] RDW Standard Deviation 53.2(H) 36.0 - 45.0 [facility] RDW coefficient of variation 15.9(H) 11.4 - 13.8 % [facility] Mean Platelet Volume 9.0 7.6 - 12.9 [facility] NRBC% auto 0.0 % [facility] NRBC Absolute 0.000 0.000 - 0.000 x10(3)/mc L [facility] Blood specimen (specimen) 04/06/2018 1:15 PM EDT 04/06/2018 1:24 PM EDT Narrative Resulting Agency Comment Spec In Lab Fabian Burkett MD HEMATOLOGY ORDERABLE S [facility] [place] [address] * Antibody screen (04/06/2018 1:15 PM EDT) Ab Screen Interp Negative [facility] Expires at [id number] on: 04/09/2018 [facility] Blood specimen (specimen) 04/06/2018 1:15 PM EDT 04/06/2018 1:20 PM EDT Narrative Resulting Agency Comment Spec In Lab Fabian Burkett MD BLOOD BANK LAB ORDER KELLY [facility] [place] [address] * ABO/Rh Typing (04/06/2018 1:15 PM EDT) ABORH Type A Pos [facility] Comment: 04/06/2018 15:10 ??CHASDM ABO/Rh determined (Acc# [id number]) to be A pos. Blood specimen (specimen) 04/06/2018 1:15 PM EDT 04/06/2018 1:20 PM EDT Narrative Resulting Agency Comment Spec In Lab Fabian Burkett MD BLOOD BANK LAB ORDER KELLY Performing Organization Address City/[facility]/ZIP Co de Phone Number [facility] [place] [address] * Fibrinogen (04/06/2018 1:15 PM EDT) Pathologist [facility] Fibrinogen 255 200 - 393 mg/dL [facility] Comment: A fibrinogen level >100 mg/dL is adequate for hemostasis in most patients without underlying bleeding disorders. Blood specimen (specimen) 04/06/2018 1:15 PM EDT 04/06/2018 1:24 PM EDT Narrative Resulting Agency Comment Spec In Lab Erwin Hernandez MD HEMATOLOGY ORDERAB LES [facility] [place] [address] * Ethanol Level (04/06/2018 1:15 PM EDT) Ethanol <100 <=99 mg/L [facility] Comment: Greater than 800 mg/L (0.08%) should be considered intoxicated. 3400 to 4500 mg/L (0.34 - 0.45%) is considered severe intoxication. Greater than 5500 mg/L (0.55%) is usually fatal. Blood specimen (specimen) 04/06/2018 1:15 PM EDT 04/06/2018 1:24 PM EDT Narrative Resulting Agency Comment Spec In Lab Erwin Hernandez MD CHEMISTRY ORDERABL ES Performing Organization Address [facility] Co de Phone Number [facility] [place] [address] * APTT (04/06/2018 1:15 PM EDT) Partial Thromboplastin Time 31 25 - 37 sec [facility] ORDERAB LES Performing Organization Address [facility] Co de Phone Number [facility] [place] [address] * (ABNORMAL) Prothrombin Time (04/06/2018 1:15 PM EDT) Prothrombin Time 29.1(H) 9.4 - 12.5 sec [facility] International Normalization Ratio 2.6 [facility] Comment: An INR [...] Lab Erwin Hernandez MD HEMATOLOGY ORDERAB LES [facility] [place] [address] * (ABNORMAL) Basic Metabolic Panel (non-fasting) (04/06/2018 1:15 PM EDT) Glucose 219(H) 65 - 199 mg/dL [facility] Comment:Diabetes: >=200 mg/d L plus symptoms Blood Urea Nitrogen 39(H) 10 - 20 mg/dL [facility] Creatinine 2.01(H) 0.80 - 1.50 mg/dL [facility] Sodium 140 135 - 145 mmol/L [facility] Potassium 5.2(H) 3.5 - 5.0 mmol/L [facility] Comment: Please note: ??Patients with WBC >100,000 may have falsely elevated Potassium levels. ??For accurate Potassium quantification in these patients send serum separator tube (gold top) for subsequent determinations. ??Contact the Clinical Chemistry Laboratory if there are any questions. Chloride 116(H) 98 - 107 mmol/L [facility] Carbon Dioxide 15(L) 22 - 31 mmol/L [facility] Anion Gap 9 5 - 15 mmol/L [facility] Calcium 4.9(Criti constance) 8.5 - 10.5 mg/dL [facility] Comment:Called by: [email or web address], Read back by: misael [email or web address]_, Date/Time:04/06/18 14:04. Est Glomerular Filtration Rate 36(L) >=60 mL/min/1. 73 m?? [facility] Comment: The eGFR was calculated using the CKD-EPI equation. As with all creatinine based estimates of kidney function, eGFR values calculated with the CKD-EPI equation are not accurate in patients with acute kidney failure, extremes of body mass or the acutely ill. [email or web address] – [email or web address] eGFR 42(L) >=60 mL/min/1. 73 m?? [facility] Comment: The eGFR was calculated using the CKD-EPI equation. As with all creatinine based estimates of kidney function, eGFR values calculated with the CKD-EPI equation are not accurate in patients with acute kidney failure, extremes of body mass or the acutely ill. [email or web address] – [email or web address] Blood specimen (specimen) 04/06/2018 1:15 PM EDT 04/06/2018 1:24 PM EDT Narrative Resulting Agency Comment Spec In Lab Erwin Hernandez MD CHEMISTRY ORDERABL ES [facility] [place] [id number] * XR Chest AP and Pelvis AP [...] pH, Arterial 7.14(Criti constance) 7.35 - 7.45 [facility] Comment:Noted by optical instrument assembly supervisor. PCO2, Arterial 51(H) 35 - 45 mmHg [facility] PO2, Arterial 38(Critica l) 85 - 104 mmHg [facility] Comment:Noted by optical instrument assembly supervisor. Bicarbonate, Arterial 16.7(L) 20.0 - 26.0 mmol/L [facility] Base Excess, Arterial -12.4(L) -3.0 - 3.0 mmol/L [facility] Hgb Blood Gas 12.3(L) 13.7 - 16.5 gm/dL [facility] Oxyhemoglobin, Arterial 69.1(L) 94.0 - 97.0 % [facility] Carboxyhemoglob in, Arterial 0.3 % [facility] Comment: Nonsmokers: 0.5-1.5% COHB Smokers: Variable, but usually less than 10% Toxic: 20-30% COHB Lethal: Greater than 60% COHB Methemoglobin, Arterial 0.4 <=1.5 % [facility] Na Whole Blood 137 135 - 145 mmol/L [facility] K Whole Blood 6.3(Critic al) 3.5 - 5.0 mmol/L [facility] Comment: Noted by optical instrument assembly supervisor. Please note: Patients with WBC >100,000 may have falsely elevated Potassium levels. Contact the Clinical Chemistry Laboratory if there are any questions. ICa Whole Blood 1.01(L) 1.15 - 1.33 mmol/L [facility] Comment: Note: ??Total bilirubin higher than 20 mg/dL may lead to falsely low ionized calcium. CL Whole Blood 112(H) 98 - 107 mmol/L [facility] Gluc Whole Bld 258(H) 65 - 199 mg/dL [facility] Comment:Diabetes: >=200 mg/d L plus symptoms. Lactate WB 2.0 0.5 - 2.2 mmol/L [facility] Blood specimen (specimen) 04/06/2018 1:14 PM EDT 04/06/2018 1:14 PM EDT Erwin Hernandez MD POINT OF CARE TEST ORDERABLES [facility] [place] [address] * Prepare RBC (04/06/2018 1:05 PM EDT) Dispensed? Yes [facility] Blood specimen (specimen) 04/06/2018 1:05 PM EDT 04/06/2018 1:03 PM EDT Erwin Hernandez MD BLOOD BANK PRODUCT ORDERABLES Performing Organization Address [facility] Co de Phone Number [facility] [place] [address] * Film Library- Storage Only CT Chest Abdomen Pelvis (04/06/2018 12:05 AM EDT) Narrative [facility] - 04/06/2018 2:07 PM EDT This exam is for storage only and is auto-finalizing. Fabian Burkett MD [facility] FILM LIBRARY ORD ERABLES Performing Organization Address [facility] de Phone Number [place], [place] * SCAN DOC: IMPLANTABLE DEVICES (04/06/2018 12:00 AM EDT) Narrative 04/06/2018 12:00 AM EDT Ordered by an unspecified provider. Scanning Provider MEDIA MGR SCAN EXT O RDR/RSLT * Film Library- Storage Only CT Head And Spine (04/06/2018 12:00 AM EDT) Narrative [facility] - 04/06/2018 1:32 PM EDT This exam is for storage only and is auto-finalizing. Fabian Burkett MD [facility] FILM LIBRARY ORD ERABLES Performing Organization Address [facility] de Phone Number [place], [place] * SCAN DOC: LAB (04/06/2018 12:00 AM EDT) Narrative 04/06/2018 12:00 AM EDT Ordered by an unspecified provider. Scanning Provider MEDIA MGR SCAN EXT O RDR/RSLT * SCAN DOC: 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 WORKER (04/06/2018 12:00 AM EDT) Anatomical Region Laterality [...] Routine documented in this encounter Care Teams Environmental Designer Relationship Specialty Start Date End Date Carroll Garcia DO [address] [place] [address] PCP - General 09/23/11 10/20/22 documented as of this encounter
--- OUTSIDE RECORDS SUMMARY | 2024-05-23 13:26 | XMS_ITS | Encounter Summary ---
Author Organization [facility] Address [facility] [place] [address] Care Team Providers Care Stevedoring Superintendent Name Role Phone Alfredo Carroll MIX Primary Care Provider [phone] Reason for Visit * Auth/Cert Specialty Diagnoses [...] Expiration Date Visits Re quested Visits Authorized [id number] 1 1 Encounter Details Date Type Department Care Team (Late st Contact Info) Description 04/19/2018 7:24 AM EDT Anesthesia Event Main [place] [id number] Cornel Rueda MD [facility] [address] Kvng Chauhan MD [facility] [place] [address] Anesthesia Record Procedure Summary Procedure Name Responsible [...] 92605/31/17 1145 by Leslie Gomez RN 04/19/18 09 by Karuna Nagel RN Incision 04/06/18; 1345; arm; vertical; LDA not present upon assessment; 04/19/18; 95004/06/18 1345 by Bhargav Gomez RN 04/19/18950 by Karuna Nagel RN (RETIRED) Peripheral IV Line - Single Lumen 04/08/18; 2113; cephalic vein (lateral side of arm), right; [id number] catheter system; 22 gauge; catheter/device intact; 04/26/18; [...] Rueda MD - 04/19/2018 10:17 AM EDT [facility] Department of Anesthesiology Post-procedure Note Patient: Adama Ram Procedure Summary Date Anesthesia Start Anesthesia Stop Room / Location 04/19/18 0724 [id number] [facility] OR [facility] MAIN OR Procedure Diagnosis Surgeon Responsible Provider LIGATION OR BANDING OF HEMODIALYSIS FISTULA OR GRAFT UPPER EXTREMITY (WRVU 6.25) (Left Arm Lower); DRESSING CHANGE (VAC ASSISTED) UP TO 50SQ.CM (WRVU 0.55) (Left ) (left distal AVF with ?infection) Odalis Elias MD Taenzer, Andreas H, MD All Anesthesia Providers: Anesthesiologist: Cornel Rueda MD Sports Statistician: Kvng Chauhan MD Most Recent Vitals: 04/19/18 [...] GFR 15-29 ml/min ??? 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 half-way current use of immunosuppressive drug ??? H/O [...] (WRVU 8.41) performed by Lida Peter MDat [facility] OR ??? PRO DIRECT REPAIR RUPTURED ANEURYSM, AXILLO-BRACHIAL ARM INCIS Left 04/06/2018 @REPAIR, RUPTURED AXILLARY OR BRACHIAL ARTERY ANEURYSM BY ARM INCISION (WRVU *) performed by Lida Peter MD at [facility] OR ??? 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 PRO EXC SKIN MALIG 3.1-4CM FACE, FACIAL Left 02/05/2016 EXC MALIGNANT LESION, 3.1 TO 4.0CM, FACE performed by Miguel Angel Moreno MD at [facility] OR ? ? PRO EXC SKIN MALIG >4CM TRUNK, ARM, LEG 04/19/2012 EXC MALIGNANT LESION, MICHAEL > 4.0CM, TRUNK performed by SABRINA SANCHEZ at [facility] OR ??? PRO LAP, RADICAL NEPHRECTOMY Left 05/31/2017 @LAPAROSCOPY, RADICAL NEPHRECTOMY (WRVU 25.06) performed by Jax Mills MD at [facility] OR ??? PRO REBL VES GRAFT, UP EXTREM Left 04/06/2018 REPAIR BLOOD VESSEL WITH GRAFT OTHER THAN VEIN, UPPER EXTREMITY (WRVU 15.83) performed by Lida Peter MD at [facility] OR ??? PRO RELIEVE PRESSURE ON NERVE(S) Left 04/06/2018 (MSURG) CARPAL TUNNEL (WRVU 4.82) performed by Silviano Sparks MD at [facility] OR ??? PRO REPAIR INTERMEDIATE S/A/T/E [...] 4.97) performed by Lida Peter MD [facility] MAIN OR ? ? PRO SPLIT GRFT, [...] mg documented in this encounter Care Teams Stevedoring Superintendent Relationship Specialty Start Date End Date Carroll Fuentes DO [address] [place] [address] [address] [place] [address] PCP - General 09/23/11 10/20/22 documented as of this encounter
--- OUTSIDE RECORDS SUMMARY | 2024-05-23 13:26 | XMS_ITS | Encounter Summary ---
Author Organization [facility] Address [facility] [place] [address] Care Team Providers Care Animal Control Officer Name Role Phone Alfredo, Carroll MIX Primary Care Provider [phone] Reason for Visit * Reason Comments Trauma [...] Expiration Date Visits Re quested Visits Authorized [id number] 1 1 Encounter Details Date Type Department Care Team (Late st Contact Info) Description 04/19/2018 7:30 AM EDT - 04/19/2018 9:19 AM EDT [place] [address] Odalis Elias MD [facility] [address] LIGATION OR BANDING OF HEMODIALYSIS FISTULA OR [...] epilepsy, and prior TBI who presents to [facility] s/p LUE bleeding with PEA arrest. Description [...] Pt intubated in field. Pt taken to [facility], where second tourniquet applied and pt received 6U PRBC. Transferred to [facility] for further care. Of note, per Dr. [...] Studies: none Discharge Conditions/Prognosis: Good [facility] [address] [place] [id number] Discharge Medications: Your Medications New Medications Dose [...] draw weekly CBC/CMP with results sent to [facility] Infectious disease. See wound care instructions below. [...] For any problems or questions please call [phone] YEIMY Fallon, rn transition Nurse Clinician For issues on weeknights after 5pm and weekends please call [phone] and ask for the Vascular Fellow retirement consultant. General Instructions Plastic Surgery Wound Care Instructions [...] about scheduling, please contact our administrative officesat [phone] For clinical questions, please call our nurses at [phone] Both offices are open Wednesday thru Wednesday 8a - 5p. With emergencies after hours, call the hospital chocolate finisher operator at [phone] and ask for the Plastic Surgery Resident retirement consultant. Future Appointments and Orders Future Appointments and Orders Future Appointments Provider Department Dept Phone 05/17/2018 10:20 AM Laina Disla APRN Plastic Surgery at [facility] at: Senior Staff Accountant Area 4M [phone] 05/17/2018 11:30 AM Kurt Medina MD Infectious Disease at [facility] at: Senior Staff Accountant Area 5C [phone] 05/17/2018 12:30 PM Nilda Minaya RN Vascular Surgery at [facility] at: Senior Staff Accountant Area 3V [phone] 05/27/2018 10:15 AM Lida Peter MD Vascular Surgery at [facility] at: Senior Staff Accountant Area 3V [phone] 08/18/2018 10:30 AM Chanel Smith MD Dermatology at [facility] [phone] Future Orders Complete By Expires OPAT: Order / Recommendation for Post Discharge IV Antibiotic Management [APW660 CPT(R)] As directed Process Instructions: If no progress note charted, please enter Clinical details in comments. Scheduling Instructions: Comments: Please Fax all results to: OPAT Program Infectious Disease Section [facility], [place] [address] FAX: Line care instructions per [facility] OPAT Program protocol. After hours, please contact the Infectious Disease Physician retirement consultant at . If this order was signed greater than 72 hours prior to [facility] discharge, please call to confirm the accuracy [...] about scheduling, please contact our administrative officesat [phone] For clinical questions, please call our nurses at [phone] Both offices are open Wednesday thru Wednesday 8a - 5p. With emergencies after hours, call the hospital chocolate finisher operator at [phone] and ask for the Plastic Surgery Resident retirement consultant. * Patient Instructions* Nilda Minaya RN - [...] For any problems or questions please call [phone] YEIMY Fallon, rn transition Nurse Clinician For issues on weeknights after 5pm and weekends please call [phone] and ask for the Vascular Fellow retirement consultant. documented in this encounter Medications at [...] AM EDT Pt accepted bed offer at [facility] for transfer today. Pt qualifies for ambulance transfer due to being on bed alarm while here, being impulsive and history of TBI. Pt will be transferred at Noon via [facility]. I called pt brother Lucas to inform. He was with JANICE Guzman from [place] [facility]. Our SW Bia spoke with Lucas as well about continuing the LT Medicaid application process. Nurse to Nurse report number given to pt's staff nurse Danny. Discharge envelope started; still needed discharge summary, medication sheets and prescription added. Please call CM if needed for further pt discharge needs. Padmini Ruiz RN [phone] * Reynaldo Jade - 05/04/2018 8:58 AM EDT Office of Care Management/Director Of Elementary Education Patient Name: Christy Ambrose : 1960 Patient has been offered a SNF bed at [facility] [place] for today, 05/04/18 [facility] arranged for a 12:00 pm transport. Ambulance will need: Medicare ambulance form completed and signed (MD or Writing Center Director RN/PSYCHOSOCIAL REHABILITATION COUNSELOR) Copy of patient demographics [place] Out of Hospital DNR/DNI order, if active No MD to MD report necessary Please call Nursing Report to [phone], ask for reception centre manager. Info to accompany patient: Narcotic Prescriptions Copies of Medication Administration Records and IV sheets for past 10 days. Plan: Director Of Elementary Education will be available to the patient and Writing Center Director-RN and/or Social Workerfor further assistance. Patient will be discharged to: [address] [address] Reynaldo Jade, Director Of Elementary Education * Chasidy Monahan PA - 05/04/2018 7:47 [...] AM Laina Disla APRN [facility] 4M [facility] 05/17/2018 11:30 AM Kurt Medina MD [facility] 5C [facility] 05/17/2018 12:30 PM Nilda Minaya RN Leb V Surg [facility] 08/18/2018 10:30 AM Chanel Smith MD [facility] PANCHITO Rios Pager: [phone] * Nayeli Wilde, SAVANNA - 05/03/2018 8:29 PM EDT Images from the original note were not included. PRN dressing change Dressing prior to change Dressing after change * Natalya Wan MSW - 05/03/2018 5:01 PM EDT PSYCHOSOCIAL REHABILITATION COUNSELOR and RNTORIBIO Chaidez met with Christy, his mother Ilda (HDPOA), and his brother Lucas (HDPOA and FPOA). All three parties accepted a bed offer at [facility] for rehab and hope thatif a bed becomes available at [facility] Christy can be transferred. Family to continue tocomplete Vt Choices for Care and work on nursing home supportive living with [facility] when mother goes to assisted living. * Nicole Hamilton LD - 05/03/2018 2:04 PM EDT Nutrition Progress Note Christy Ginna Ambrose is a 57 y.o. male Reason for intervention: Follow up Nutrition Recommendations: Could liberalize diet to [facility] Continue to monitor potassium trends Monitor weight [...] encounter: 84.3 kg (185 lb 13.6 oz). Lutz Body Weight (IBW): Lutz body weight: 73.2 kg (161 lb 5.4 [...] intakes. Potassiumnormal, could consider liberalizing diet to [facility]/Cardiac. Patient denies any questions/concerns rega rding current [...] by primary team Javier Nolan MD Pager: [phone] * Tristin Marrero MD - 05/03/2018 7:40 [...] ongoing. Angelina Marrero Vascular Surgery, PGY3 Pager #[phone] * Tristin Marrero MD - 05/02/2018 12:35 [...] recommendations. Angelina Marrero Vascular Surgery, PGY3 Pager #[phone] * Chasidy Monahan PA - 05/02/2018 9:16 [...] team PANCHITO Rios Plastic Surgery Team Pager: [phone] * Natalya Jacobsen MD - 05/01/2018 9:15 [...] Aditi Mccollum MD Plastic Surgery Resident P# [phone] * Natalya Jacobsen MD - 04/30/2018 9:23 [...] Aditi Mccollum MD Plastic Surgery Resident P# [phone] * Natalya Jacobsen MD - 04/29/2018 2:00 [...] General Surgery PGY-1 [id number] * Natalya Wan PSYCHOSOCIAL REHABILITATION COUNSELOR - 04/29/2018 11:21 AM EDT PSYCHOSOCIAL REHABILITATION COUNSELOR spoke with patients mother and [facility] [place] [facility] PSYCHOSOCIAL REHABILITATION COUNSELOR who are following up today by completingChoices for Care application. Mother told PSYCHOSOCIAL REHABILITATION COUNSELOR patient was fully independent until this event. [...] 10:30 AM NURSE, PLASTIC SURGERY [facility] [address] [place] [address] CLIN 05/02/2018 12:30 PM Natalya Ojeda MD [facility] V [facility] 08/18/2018 10:30 AM Chanel Smith MD [facility] Laura Bauman MD Plastic surgery team pager: [phone] 04/29/2018 6:48 AM * Tonie Kumar - 04/28/2018 2:37 PM EDT Narrative: Visited to introduce and assess acceptance of Mice Raiser services. Pt was awake, alert, oriented and [...] Provided emotional, spiritua support and encouraging presence. Mice Raiser services accepted.Conversation to build trusting relationship.Provided pastoral [...] 10:30 AM NURSE, PLASTIC SURGERY [facility] [address] [place] [address] CLIN 05/02/2018 12:30 PM Natalya Ojeda MD [facility] 08/18/2018 10:30 AM Chanel Smith MD [facility] PANCHITO Moser Plastic surgery team pager: [phone] 04/28/2018 8:12 AM Attending: Plan discussed and [...] questions Danielle Peoples, Infectious Disease Fellow Pager [phone] Associated attestation - Kurt Medina MD - [...] team PANCHITO Rios Plastic surgery team pager: [phone] 04/27/2018 8:46 AM Attending: Plan discussed and [...] stable - UOP adequate Thelma Solitario Pager: [phone] 04/27/18 * Domi Norman RN - 04/26/2018 [...] Note Recommendation/Plan: Diet at MD discretion, consider [facility] diet with K restriction May liberalize to [facility] if K is WNL Appreciate updated weights [...] / appropriate for Occupational Therapy Services. Pager [phone] NICKY Irizarry/John Occupational Therapy Rehabilitation Department * Hay Sparks MD - 04/26/2018 8:01 AM EDT Plastic Surgery Service Progress Note ID: Chirsty Ambrose is a 57 y.o. old male [...] team PANCHITO Rios Plastic surgery team pager: [phone] 04/26/2018 8:01 AM Attending: Pt seen and [...] Danielle Peoples DO Infectious Disease Fellow Pager [phone] Associated attestation - Kurt Medina MD - [...] in this interval not displayed. Assessment: Christy Ambrsoe is a 57 y.o. 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 Plan: - OR tomorrow for skin grafting (04/26) - NPO at [facility] - Obtain consent or OR tomorrow - no need to hold [facility] PANCHITO Rios Plastic surgery team pager: [phone] 04/25/2018 1:10 PM Attending: Plan discussed and [...] 27 27 27 Microbiology ?? Tissue culture [[id number]] (Abnormal) Collected: 04/19/18924 ? Lab Status: Preliminary [...] - skin grafting Wednesday - NPO at [facility] Wednesday night - no need to hold [...] 27 27 27 Microbiology ?? Tissue culture [[id number]] (Abnormal) Collected: 04/19/18924 ? Lab Status: Preliminary [...] O: Telephone call received from Rachna Muro ([place] [facility]) who reports that patient's Mother is already assigned to worker Lalitha. Rachna suggested I call Mother and remind her that she has made contact with the agency. Rachna cannot release any information to [facility] without a signed release. Machine I Trimmer attempted to call Mother today, no answer, [...] PTT 27 27 27 Microbiology Tissue culture [[id number]] (Abnormal) Collected: 04/19/18924 ? Lab Status: Preliminary [...] just returned from ambulating unit3x w/ staff radiologist. RN reports pt is supervision while ambulating to/from bathroom and requires min A for hygiene thoroughness. Pt deferred OT until tomorrow; pt education provided re: importance of frequent functional mobility and participation w/ ADL tasks. Will follow up as available / appropriate for Occupational Therapy Services. Pager [phone] Dania Ramirez. NICKY Oliveira/John Occupational Therapy Rehabilitation [...] PTT 27 27 27 Microbiology Tissue culture [[id number]] (Abnormal) Collected: 04/19/18924 ? Lab Status: Preliminary [...] continue current immunosuppression regimen. Appreciate input. [facility] Vascular Surgery * Kelsey Tyler, RD - [...] encounter: 86.2 kg (190 lb 0.6 oz). [place] Body Weight (IBW): Lutz body weight: 73.2 kg (161 lb 5.4 [...] Lombardi Beeper #: [phone] * Karis Mejia, PSYCHOSOCIAL REHABILITATION COUNSELOR - 04/20/2018 11:29 AM EDT Discharge Planning: O: Telephone call to patient's Mother Ilda who reports that she was unable to connect with her local [place] [facility]. Unfortunately I believe that Ilda may be overwhelmed by patient's admission and events leading up to hospitalization. Ilda reports that there are repairs that need to be completed in the family home and that a staff member at [facility] (she cannot identify) has told her that patient can not return home. I offered support to Ilda and suggested that I would contact the [place] [facility] and ask them to outreach to her. She was appreciative. Telephone call to Rachna Muro ([facility] [place] [facility] [phone]), voice mail message relaying above information. P: Await call back from Rachna, continue to liaison with Mother and offer support around discharge planning. 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 -No acute indication for MAINTENANCE OPERATOR ,,Strict intake and out put monitoring,Daily [...] PTT 27 27 27 Microbiology Tissue culture [[id number]] (Abnormal) Collected: 04/19/18924 ? Lab Status: Preliminary [...] regimen. Angelina Marrero Vascular Surgery, PGY3 Pager #[phone] * Karuna Nagel, RN - 04/19/2018 10:28 [...] Angelina Devries Elida Vascular Surgery, PGY3 Pager #[phone] * Selma Fontanez PTA - 04/18/2018 2:14 PM EDT Physical Therapy Note Patient having bedside vac change with pain meds. Will follow up with patient tomorrow. Selma Fontanez PTA Pager# [phone] * Tristin Marrero MD - 04/18/2018 12:22 [...] kidney disease. - No acute indication for MAINTENANCE OPERATOR, Strict intake and out put monitoring, [...] kidney disease. - No acute indication for MAINTENANCE OPERATOR, Strict intake and out put monitoring, [...] [facility] MAIN OR ??? PRO DECOMPRESS FOREARM, BRACH ART EXPLOR Left 04/06/2018 FASCIOTOMY, FOREARM, WITH BRACHIAL ARTERY EXPLORATION (WRVU 8.41) performed by Lida Peter MDat [facility] MAIN OR ??? PRO DIRECT REPAIR RUPTURED ANEURYSM, AXILLO-BRACHIAL ARM INCIS Left 04/06/2018 @REPAIR, RUPTURED AXILLARY OR BRACHIAL ARTERY ANEURYSM BY ARM INCISION (WRVU *) performed by Lida Peter MD at [facility] MAIN OR [...] 4.0CM, TRUNK performed by SABRINA MEDRANO at [facility] OR ??? PRO LAP, RADICAL NEPHRECTOMY Left 05/31/2017 @LAPAROSCOPY, RADICAL NEPHRECTOMY (WRVU 25.06) performed by Jax Mills MD at [facility] OR ??? PRO REBL VES GRAFT, UP EXTREM Left 04/06/2018 REPAIR BLOOD VESSEL WITH GRAFT OTHER THAN VEIN, UPPER EXTREMITY (WRVU 15.83) performed by Lida Peter MD at [facility] OR ??? PRO RELIEVE PRESSURE ON NERVE(S) Left 04/06/2018 (MSURG) CARPAL TUNNEL (WRVU 4.82) performed by Hay Sparks MD at [facility] OR ??? PRO REPAIR INTERMEDIATE S/A/T/E 2.6-7.5 CM 04/19/2012 REPAIR INTERMEDIATE WOUND, (NO HANDS OR FEET) 2.6 TO 7.5CM, UPPER EXTREMITY performed by SABRINA MEDRANO at [facility] OR ? ? PRO REPAIR INTERMEDIATE S/A/T/E > 30.0 CM Left 04/14/2018 REPAIR INTERMEDIATE WOUND, (NO HANDS OR FEET) >30.0CM, UPPER EXTREMITY (WRVU 5) performed by Yimi Easton MD at [facility] OR ??? PRO REVISE MEDIAN N/CARPAL TUNNEL SURG Left 04/06/2018 MEDIAN NERVE DECOMPRESSION (CARPAL TUNNEL RELEASE) (WRVU 4.97) performed by Lida Peter MD [facility] MAIN OR ? ? PRO SPLIT GRFT, [...] for regular diet and thin liquids per ATHLETIC FIELD CUSTODIAN Estimated body mass index is 28.91 kg/(m^2) [...] being worked up for possible intracranial event. ATHLETIC FIELD CUSTODIAN cleared patient for regular diet and thin liquids. Patient has been tolerating this well, but per RN this morning he did not eat d/t nausea. Thiscould be attributed to pain meds on empty stomach. ATHLETIC FIELD CUSTODIAN and OT in with patient at time of attempt this morning, will check back in afternoon. Patient seen this afternoon having eaten ~50% of his lunch, appeared to still be eating as well. 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 He is not sure if he has [...] kidney disease. - No acute indication for MAINTENANCE OPERATOR, Strict intake and out put monitoring, [...] EDT INPATIENT DAILY PROGRESS NOTE Patient Name: hCristy Ambrose Patient Age: 57 y.o. Birthdate: 1960 [...] kidney disease. - No acute indication for MAINTENANCE OPERATOR, Strict intake and out put monitoring, Daily weights, Renal dosing for medications - Hypertension: was on hydralazine 50 mg BID,diltiazem 120 mg XT daily ,metorpolol 50 mg TID,losartan 25 mg daily at home.Will recommend to restart his home meds and continue holding losartan in the setting of TRISTIAN. Tim Ogden MD * Karis Mejia PSYCHOSOCIAL REHABILITATION COUNSELOR - 04/13/2018 1:17 PM EDT O: Requested by CM to continue to communicate with Mother re discharge planning. Machine I Trimmer spoke with Mother today who is glad to hear that patient is progressing. Mother has an appointment on 04/15/18 with the [place] [facility] to discuss [place]. She also had questions about filing for SSDI for patient. Machine I Trimmer suggested that she contact with ANTHON[facility] Roy officeand make an appointment to speak with someone there. 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 -No acute indication for MAINTENANCE OPERATOR ,,Strict intake and out put monitoring,Daily [...] kidney disease. - No acute indication for MAINTENANCE OPERATOR, Strict intake and out put monitoring, Daily weights, Renal dosing for medications - Hypertension: was on hydralazine 50 mg BID,diltiazem 120 mg XT daily ,metorpolol 50 mg TID,losartan 25 mg daily at home.Will recommend to restart his home meds and continue holding losartan in the setting of TRISTIAN. Tim Ogden MD * Ajay Alexandre - 04/12/2018 2:08 PM EDT Mice Raiser Encounter Note Patient Name: Christy Ambrose : [id number] MR#: [id number] Admit Date: 04/06/2018 12:58 PM Hospital Day 6 days Narrative: Seen on director sales and trade marketing Rounds. Sitting in recliner. Cordial. Expression bemused, [...] chronic kidney disease. -No acute indication for MAINTENANCE OPERATOR, Strict intake and out put monitoring, Daily weights, Renal dosing formedications - Hypertension: was on hydralazine 50 mg BID,diltiazem 120 mg XT daily ,metorpolol 50 mg TID,losartan 25 mg daily at home.Will recommend to restart his home meds and continue holding losartan in the setting of TRISTIAN. 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 -No acute indication for MAINTENANCE OPERATOR ,,Strict intake and out put monitoring,Daily [...] 04/11/2018 Neurology resident, PGY-3 Vascular Neurology Pager [phone] Associated attestation - Tim Collins MD - [...] treatment session. Kelsey Hua, PT Pager # [phone] PT Evaluation Code Rationale: ?? Diagnosis & [...] cook, clean independently. 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 pt usually [...] Assessment/Treatment Assistive Device (Bed Mobility) bed rails Yytjtw-pr-Het [place] (Bed Mobility) minimum assist (75% patient effort) Comment (Bed Mobility) HOB elevated Transfer Assessment/Treatment [place] (Sit-Stand Transfers) moderate assist (50% patient effort);verbal cues required;2 person assist required [place] (Stand-Sit Transfers) moderate assist (50% patient effort);verbal cues required;2 person assist required Dau-Gtzld-Ixu Assistive Device (Transfers) rolling walker (initially transfered mod x2 w/o AD, poor balance) Safety Issues (Transfers) loses balance backward (lost balance forward initially) Impairments (Transfers) balance impaired;strength decreased;pain Comment (Transfers) cues for hand placement on RW Gait Assessment/Treatment [place] (Gait) moderate assist (50% patient effort);verbal cues [...] good balance Sitting Balance: Dynamic fair balance Skb-rf-Xcxjz Balance poor balance Standing Balance: Static poor [...] to sit/sit to sidelying Bed Mobility Goal, [place] Level independent Gait Training Goal Gait Training Goal, Date Established 04/11/18 Gait Training Goal, Time to Achieve 2 wks Gait Training Goal, [place] Level independent Gait Training Goal, Assist Device other (see comments) (LRD ) Gait Training Goal, Distance to Achieve 150 ft Transfer Training Goal Transfer Training Goal, Date Established 04/11/18 Transfer Training Goal, Time to Achieve 2 wks Transfer Training Goal, Activity Type all transfers Transfer Train Goal, [place] Level independent Transfer Training Goal, Assist Device [...] treatment session. Kelsey Hua PT Pager # [phone] * Karis Mejia MSW - 04/11/2018 1:15 PM EDT Discharge Planning: O: Requested by CM-RN to contact Mother re her concerns around housing. Machine I Trimmer spoke with Mother who relayed that she [...] and plans to speak with her local [place] [facility]. Machine I Trimmer suggested to Mother that she begin to have a conversation with them around [place] as that would be the payor source for patient. Mother is also interested in finding out what the discharge plan will be. Machine I Trimmer relayed that a CM-RN would be in [...] longer needed); will follow up with Transplant Nephrology/[facility] today Tim Ogden MD * Odalis [...] MD/NEHA, PGY-5 Section of Vascular Surgery, Pager [phone] * Tim Ogden MD - 04/10/2018 10:57 [...] 04/09/2018 Neurology resident, PGY-4 Vascular Neurology Pager [phone] ... I saw and evaluated the patient [...] MD/NEHA, PGY-5 Section of Vascular Surgery, Pager [phone] * Alfonzo Miles MD - 04/08/2018 4:56 [...] initiated. Alfonzo Miles MD [place] [address] Pager: [phone], #[phone] Email: [email or web address] * Sharmin Barth RN - 04/08/2018 12:34 PM EDT [facility] RESPONSE TEAM NOTE Name: Christy Ambrose Age: 57 y.o. Sex; Male Date of : 1960 Responding Members: BENJAMIN ROGEL RCP Date/Time of Admission: 04/06/2018 12:58 PM Unit/Room: 427 4W Service: Vascular sx Attending: Quin Peter Retail Financial Analyst present? Yes Attending Contacted? Yes Time Activated: [...] f/u Wednesday as appropriate. Negrita Arnold OT #[id number] * Veronica Holt RN - 04/08/2018 12:09 [...] any questions. 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, suspected DVT on anticoagulation therapy with the Coumadin transferred from [facility] to [facility] on 04/06/18 for hemorrhagic shock status post [...] Latest Ref Range: Clear Hazy (A) Spec [place] UA Latest Ref Range: 1.002 - 1.030 [...] can not be managed medically needing emergent MAINTENANCE OPERATOR.No indication for dialysis/CVVH -Had good U.out [...] tolerated to keep BP stable .currently on [id number] mg BID and hydralazine,labetolol IV prn #5.Ruptured [...] vascular,neurology teams Radha Hughes MD Nephrology Fellow #[id number] * Veronica Holt RN - 04/08/2018 9:47 [...] HTN, epilepsy,and prior TBI who presents to [facility] s/p LUE bleeding with PEA arrest. Description [...] Pt intubated in field. Pt taken to [facility], where second tourniquet applied and pt received 6U PRBC. Transferred to [facility] for further care. ?? Of note, per [...] AND SUBCU, HEAD/NECK performed by Miguel Angel Mroeno MD at [facility] MAIN OR ??? PRO DECOMPRESS FOREARM, BRACH ART EXPLOR Left 04/06/2018 FASCIOTOMY, FOREARM, WITH BRACHIAL ARTERY EXPLORATION (WRVU 8.41) performed by Lida Peter, Laureent [facility] MAIN OR ??? PRO DIRECT REPAIR [...] 4.0CM, TRUNK performed by SABRINA MEDRANO at [facility] OR ??? PRO LAP, RADICAL NEPHRECTOMY Left 05/31/2017 @LAPAROSCOPY, RADICAL NEPHRECTOMY (WRVU 25.06) performed by Jax Mills MD at [facility] OR ??? PRO REBL VES GRAFT, UP EXTREM Left 04/06/2018 REPAIR BLOOD VESSEL WITH GRAFT OTHER THAN VEIN, UPPER EXTREMITY (WRVU 15.83) performed by Lida Peter MD at [facility] OR ??? PRO RELIEVE PRESSURE ON NERVE(S) Left 04/06/2018 (MSURG) CARPAL TUNNEL (WRVU 4.82) performed by Hay Sparks MD at [facility] OR ??? PRO REPAIR INTERMEDIATE S/A/T/E 2.6-7.5 CM 04/19/2012 REPAIR INTERMEDIATE WOUND, (NO HANDS OR FEET) 2.6 TO 7.5CM, UPPER EXTREMITY performed by SABRINA MEDRANO at [facility] OR ??? PRO REVISE MEDIAN N/CARPAL TUNNEL SURG Left 04/06/2018 MEDIAN NERVE DECOMPRESSION (CARPAL TUNNEL RELEASE) (WRVU 4.97) performed by Lida Peter MD [facility] MAIN OR ? ? 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 Please page #[phone] for any further questions or concerns. Procedures: [...] and tender to touch. Pt transferred to [facility] with all belongings. Report given to oncoming RN. * Natalya Minaya MD - 04/08/2018 12:59 PM EDT Critical Care - Admission Note History of Present Illness: Christy Ambrose is a 57 y/o M w/ PMH developmental delay, epilepsy, IGA nephropathy (s/p renal transplant 2002, on tac & mycophenalate) left [place] nephrectomy (2016), HTN who was found down on 04/06 at his home w/ bleeding from L AVF. He had PEA arrest, ROSC w/ chest compressions, 1 dose epi. Tourniquet applied to L arm in field, pt intubated and brought to [facility]. Received 6 units PRBC & transferred to [facility]. On arrival GCS 11, taken to OR [...] 4.0CM, TRUNK performed by SABRINA MEDRANO at [facility] OR ??? PRO LAP, RADICAL NEPHRECTOMY Left 05/31/2017 @LAPAROSCOPY, RADICAL NEPHRECTOMY (WRVU 25.06) performed by Jax Mills MD at [facility] OR ??? PRO REBL VES GRAFT, UP EXTREM Left 04/06/2018 REPAIR BLOOD VESSEL WITH GRAFT OTHER THAN VEIN, UPPER EXTREMITY (WRVU 15.83) performed by Lida Peter MD at [facility] MAIN OR ??? PRO RELIEVE PRESSURE ON NERVE(S) Left 04/06/2018 (MSURG) CARPAL TUNNEL (WRVU 4.82) performed by Hay Sparks MD at [facility] MAIN OR ??? PRO REPAIR INTERMEDIATE S/A/T/E 2.6-7.5 CM 04/19/2012 REPAIR INTERMEDIATE WOUND, (NO HANDS OR FEET) 2.6 TO 7.5CM, UPPER EXTREMITY performed by SABRINA MEDRANO at [facility] MAIN OR ??? PRO REVISE MEDIAN N/CARPAL TUNNEL SURG Left 04/06/2018 MEDIAN NERVE DECOMPRESSION (CARPAL TUNNEL RELEASE) (WRVU 4.97) performed by Lida Peter MD [facility] MAIN OR ? ? 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 Lab Status: Preliminary result Specimen: Fluid Updated: 04/07/18 1332 ? Body Fluid Culture, Aerobic [[id number]] Collected: 04/06/18 1415 ? Lab Status: Preliminary result Specimen: Fluid Updated: 04/07/18 0804 ? Body Fluid Culture Few normal cutaneous shaina ? Gram Stain -- ? Few Neutrophils seen No microorganisms seen. ? Anaerobic Culture [[id number]] Collected: 04/06/18 1415 ? Lab Status: Preliminary [...] can not be managed medically needing emergent MAINTENANCE OPERATOR.No indication for dialysis/CVVH -Had good U.out [...] tolerated to keep BP stable .currently on [id number] mg BID and hydralazine,labetolol IV prn ?? [...] Disposition: Critical Care Red 1 Team (pager [phone]) Natalya Minaya MD 04/08/2018 * Erwin Marino MD - 04/06/2018 5:03 PM EDT Critical Care - Admission Note History of Present Illness: Christy Ambrose is a 57 y.o. 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 Recently put on coumadin for infection of left forearm with swelling, suspected to be DVT. Presents to [facility] with hemorrhagic shock s/p PEA arrest secondary to torrential left upper extremity fistula bleeding. Per EMS the patient had a severe amount of blood loss in the bathroom and bedroom that resulted in PEA cardiac arrest at the scene. He received epinephrine, 2.5 L of normal saline with ROSC obtained. Arrived at [facility] and sedated and then received 6 units [...] 4.0CM, TRUNK performed by SABRINA MEDRANO at [facility] OR ??? PRO LAP, RADICAL NEPHRECTOMY Left 05/31/2017 @LAPAROSCOPY, RADICAL NEPHRECTOMY (WRVU 25.06) performed by Jax Mills MD at [facility] MAIN OR ??? PRO REPAIR INTERMEDIATE S/A/T/E 2.6-7.5 CM 04/19/2012 REPAIR INTERMEDIATE WOUND, (NO HANDS OR FEET) 2.6 TO 7.5CM, UPPER EXTREMITY performed by SABRINA MEDRANO at [facility] MAIN OR ? ? PRO SPLIT GRFT, HEAD, FAC, HAND, FEET <100SQCM N/A 02/20/2016 SPLIT THICKNESS SKIN SPLIT GRAFT,100SQ CM OR LESS, NECK performed by Miguel Angel Moreno MD at [facility] MAIN OR ??? 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 Radiology: XR Chest and [id number] 04/06 Prominence of the superior mediastinum may [...] Ambrose Level of Activation: Trauma 9 MR#: [id number] [ ]Scene Call or [X]Hospital Transfer : [id number] CC/MECHANISM OF INJURY: 57 y.o. Male s/p [...] HTN, epilepsy,and prior TBI who presents to [facility] s/p LUE bleeding with PEA arrest. Description [...] Pt intubated in field. Pt taken to [facility], where second tourniquet applied and pt received 6U PRBC. Transferred to [facility] for further care. Of note, per Dr. [...] 4.0CM, TRUNK performed by SABRINA MEDRANO at [facility] OR ??? PRO LAP, RADICAL NEPHRECTOMY Left 05/31/2017 @LAPAROSCOPY, RADICAL NEPHRECTOMY (WRVU 25.06) performed by Jax Mills MD at [facility] MAIN OR ??? PRO REPAIR INTERMEDIATE S/A/T/E 2.6-7.5 CM 04/19/2012 REPAIR INTERMEDIATE WOUND, (NO HANDS OR FEET) 2.6 TO 7.5CM, UPPER EXTREMITY performed by SABRINA MEDRANO at [facility] MAIN OR ? 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 Hand Hygiene: The travelift operator did perform hand hygiene prior to line insertion. Catheter type: PICC Lot number: [id number] Procedure Technique: Skin was prepped with chlorhexidine. [...] vac dressing completed. Left forearm wound measures [id number] with clean, well granulated base. PANCHITO Eng [...] Reyna MD - 04/09/2018 9:03 AM EDT [facility] Department of Neurology Critical Care Prolonged [...] in the Intensive Care Unit by the [facility] Clinical Neurophysiology Laboratory. The 10/20 [...] PM EDTAssociated Order(s): EEG AWAKE, ASLEEP, DROWSY [facility] Department of Neurology In Patient Routine [...] mg 50 mg Oral Q8H [facility] Angelika Aguilera, PA 50 mg [...] duration of the recording was 30 minutes. ELECTRON BEAM WELDER SETTER'S REPORT: Performed by: AT Patient was not [...] Outcome: Ongoing (Interventions Implemented as Appropriate) 04/25/18 3936 Skin Integrity Impairment, Risk/Actual (Adult) Skin Integrity/Wound [...] briefly with patient to update him that [facility] in [place], [place] is reviewing him for possible admission this week. Pt was appreciative for this news. Pt has filed for LTC Medicaid with [facility]. Pt's staff nurse Lalitha mensah. I was going to call pt's brother Lucas to discuss. PSYCHOSOCIAL REHABILITATION COUNSELOR Sandeep Wan had just talked with pt's brother and mother Ilda and informed me that a tentative family meeting has been set up for tomorrow at 3:00 pm. CM will be part of the meeting; will continue to follow. Padmini Ruiz RN [phone] * Plan of Care - Naz Robbins [...] none Problem: Health Knowledge, Opportunity to Enhance (Adult,NICU,Fritch,Obstetrics,Pediatric) Goal: Knowledgeable about Health Subject/Topic Patient will [...] PRN PICC dressing change completed as per [facility] protocol. yes Positive pressure displacement connector (Max [...] toward outcome * Plan of Care - Caitiln Geller RN - 04/30/2018 3:38 AM EDT [...] 04/27/2018 3:19 PM EDT OFFICE OF CARE MANAGEMENT/Writing Center Director/PROGRESS NOTE e-DH reviewed. Report received from vascular. [...] broughthim in. Plan is to look for Shelter Care and I have submitted to other [...] Discharge Disposition: (P) inpatient rehabilitation facility Pager: [phone] IRLANDA MUNOZ 04/27/2018 Occupational Therapy Rehabilitation Department 04/27/18 1412 Rehab Evaluation Document Type therapy note (daily note) Total Evaluation Minutes, Occupational Therapy 24 Patient Effort good Symptoms Noted During/After Treatment none General Information Patient Profile Review yes Patient/Family/Caregiver Comments/Observations I can rock picker a can of soup with my [...] Assessment/Treatment Assistive Device (Bed Mobility) bed rails Hek-sr-Bucbxn [place] (Bed Mobility) conditional independence Impairments (Bed Mobility) flexibility decreased;ROM (range of motion) decreased;strength decreased Comment (Bed Mobility) HOB slightyly elevated; vc's to adjust HOB Transfer Assessment/Treatment Chair-Bed [place] (Transfers) contact guard assist [place] (Sit-Stand Transfers) contact guard assist [place] (Stand-Sit Transfers) contact guard assist [place] (Toilet Transfers) (pt continues to report ambulating to bathrom for toileting) Impairments (Transfers) balance impaired;ROM (range of motion) decreased;strength decreased Gait Assessment/Treatment [place] (Gait) contact guard assist Assistive Device (Gait) gait belt Distance in Feet (Gait) 750' Safety Issues (Gait) balance decreased during turns;step length decreased Impairments (Gait) balance impaired;coordination impaired Comment (Gait) mild ataxia; no lob noted; assist to carry wound vac Lower Body Dressing Assessment/Training Position (LB Dressing) standing [place] Level (LB Dressing) contact guard assist Impairments [...] good balance Sitting Balance: Dynamic fair balance Pci-yz-Gryhf Balance fair balance Standing Balance: Static fair [...] I have met with the patient/sales representative livestock to discuss discharge planning needs. I have provided the [facility], Office of Care Management letter from the [employer] Superintendent pertaining to rehab referrals. I have also provided a letter describing our affiliations within the [facility] and educated them about their right to choose where referrals are placed. ?? I reviewed the different levels of rehab including SNF, swing, acute and LTAC with the patient/sales representative livestock. ?? The patient/sales representative livestock has been provided a list of facilities within their preferred geographic area. ?? I have requested that the patient/sales representative livestock provide at least three choices for referral. ?? The patient/sales representative livestock have requested referrals to: ?? 1. [facility] ?? 2. [facility] ?? 3. [facility]. View ?? Expected date of discharge: 3-5 days Note routed to Director Of Elementary Education who will communicate referrals to facilities and provide any required information. * Plan of Care - Helen Denny RN - 04/27/2018 10:22 AM EDT Problem: Health Knowledge, Opportunity to Enhance (Adult,NICU,Fritch,Obstetrics,Pediatric) Goal: Knowledgeable about Health Subject/Topic Patient will demonstrate the desired outcomes by discharge/transition of care. Peripherally Inserted Central Catheter (PICC) Teaching Sheet Peripherally inserted central catheters (suxh-nu-hvsf) (PICC) are used when you need IV [...] midline catheter? PICC lines are used for nursing home treatments. PICC lines may be used [...] can be set up via the nurse Writing Center Director to help you. What are possible complications [...] Vascular Access Device Selection, Insertion, and Management, [employer] Access Systems 04/15. A Review of the Efficacy, Safety, Use, and Administration of [employer], [employer] 2005 * Plan of Care - [...] agency transportation Goal: Interdisciplinary Rounds/Family Conf 04/25/18 8236 Interdisciplinary Rounds/Family Conf Participants nursing;patient Problem: Seizure [...] Sparks MD - 04/26/2018 12:40 PM EDT [facility] Operative Note Patient Name: Christy Ambrose : [id number] MR#: [id number] Case Date: 04/26/2018 Surgeon: Surgeon(s) and Role: [...] Aditi Mccollum MD Plastic Surgery Resident, pager [phone] Plastic surgery team pager: [phone] Attestation: Case Date: 04/26/2018 I was present and I participated during the entire procedure (does not need to include opening and closing). HAY SPARKS MD 04/27/2018 * Brief Op Note - Aditi Mccollum MD - 04/26/2018 12:36 PM EDT Brief Operative Note Patient Name: Christy Ambrose : [id number] MR#: [id number] Case Date: 04/26/2018 Surgeon: Surgeon(s) and Role: [...] Outcome: Ongoing (Interventions Implemented as Appropriate) 04/25/18 7316 Skin Integrity Impairment, Risk/Actual (Adult) Skin Integrity/Wound [...] or Care? [facility] What Questions Do You Have About [...] [facility] MAIN OR ??? PRO DECOMPRESS FOREARM, BRACH ART EXPLOR Left 04/06/2018 FASCIOTOMY, FOREARM, WITH BRACHIAL ARTERY EXPLORATION (WRVU 8.41) performed by Lida Peter MDat [facility] MAIN OR ??? PRO DIRECT REPAIR RUPTURED ANEURYSM, AXILLO-BRACHIAL ARM INCIS Left 04/06/2018 @REPAIR, RUPTURED AXILLARY OR BRACHIAL ARTERY ANEURYSM BY ARM INCISION (WRVU *) performed by Lida Peter MD at [facility] MAIN OR [...] 4.0CM, TRUNK performed by SABRINA MEDRANO at [facility] OR ??? PRO LAP, RADICAL NEPHRECTOMY Left 05/31/2017 @LAPAROSCOPY, RADICAL NEPHRECTOMY (WRVU 25.06) performed by Jax Mills MD at [facility] OR ??? PRO LIGATN ANGIOACCESS AV FISTULA Left 04/19/2018 LIGATION OR BANDING OF HEMODIALYSIS FISTULA OR GRAFT UPPER EXTREMITY (WRVU 6.25) performed by Odalis Elias MD at [facility] MAIN OR ??? PRO NEGATIVE PRESSURE WOUND THERAPY, LESS THAN OR EQUAL TO 50 SQCM Left 04/19/2018 DRESSING CHANGE (VAC ASSISTED) UP TO 50SQ.CM (WRVU 0.55) performed by Odalis Elias MD [facility] OR ??? PRO REBL VES GRAFT, UP EXTREM Left 04/06/2018 REPAIR BLOOD VESSEL WITH GRAFT OTHER THAN VEIN, UPPER EXTREMITY (WRVU 15.83) performed by Lida Peter MD at [facility] OR ??? PRO RELIEVE PRESSURE ON NERVE(S) Left 04/06/2018 (MSURG) CARPAL TUNNEL (WRVU 4.82) performed by Hay Sparks MD at [facility] OR ??? PRO REPAIR INTERMEDIATE S/A/T/E 2.6-7.5 CM 04/19/2012 REPAIR INTERMEDIATE WOUND, (NO HANDS OR FEET) 2.6 TO 7.5CM, UPPER EXTREMITY performed by SABRINA MEDRANO at [facility] OR ? ? PRO REPAIR INTERMEDIATE S/A/T/E > 30.0 CM Left 04/14/2018 REPAIR INTERMEDIATE WOUND, (NO HANDS OR FEET) >30.0CM, UPPER EXTREMITY (WRVU 5) performed by Yimi Easton MD at [facility] MAIN OR ??? PRO REVISE MEDIAN N/CARPAL TUNNEL SURG Left 04/06/2018 MEDIAN NERVE DECOMPRESSION (CARPAL TUNNEL RELEASE) (WRVU 4.97) performed by Lida Peter MD [facility] MAIN OR ? ? 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 Attending: Plan discussed and agree [...] management. Pt demonstrating increased ambulation w/ staff radiologist and participating in functional ADL tasks. Pt will benefit from ongoing therapeutic interventions to achieve pt's and therapy goals. Please refer to associated flowsheet data listed below for treatment session details. Staff Recommendations: Encourage OOB activity and participation in all self care tasks Anticipated Discharge Disposition: (P) inpatient rehabilitation facility Pager: [phone] IRLANDA MUNOZ 04/22/2018 Occupational Therapy Rehabilitation Department [...] Level 0 Pain Goal 0 Transfer Assessment/Treatment [place] (Sit-Stand Transfers) supervision required [place] (Toilet Transfers) supervision required Assistive Device (Toilet Transfers) bracing Impairments (Transfers) strength decreased;balance impaired Comment (Transfers) assist for wound vac during toilet transfer; slightly impulsive Gait Assessment/Treatment [place] (Gait) supervision required Distance in Feet (Gait) 25 Impairments (Gait) balance impaired Comment (Gait) recliner <> bathroom ; witnessed pt ambulating unit w/ staff radiologist ~300 Bathing Assessment/Training Comment (Bathing) pt had just completed bathing task prior to this writers arrival; pt reported assisting w/ shower cap and bathing ; Lower Body Dressing Assessment/Training Position (LB Dressing) sitting [place] Level (LB Dressing) verbal cues required;nonverbal cues [...] or Care? I am having surgery in [facility]. What Questions Do You Have About Your [...] Home with assist APURVA CASSIDY PTA Pager: [phone] Inpatient Physical Therapy Timed Up & Go [...] Assessment/Treatment Assistive Device (Bed Mobility) bed rails Xbhurg-nl-Dji [place] (Bed Mobility) conditional independence Comment (Bed Mobility) HOB flat, extra time required Sse-uj-Edaeru [place] (Bed Mobility) conditional independence Transfer Assessment/Treatment [place] (Sit-Stand Transfers) supervision required [place] (Stand-Sit Transfers) supervision required Rgn-Xkzva-Xov Assistive Device (Transfers) (no device) Maintain Weight Bearing Status (Transfers) cues to maintain weight bearing status Safety Issues (Transfers) balance decreased during turns Impairments (Transfers) balance impaired;strength decreased Comment (Transfers) Initial cues to not use L UE, impulsive, pt held wound vac with R UE Gait Assessment/Treatment [place] (Gait) supervision required Assistive Device (Gait) (no [...] to sit/sit to sidelying Bed Mobility Goal, [place] Level independent Bed Mobility Goal, Outcome Achieved goal ongoing Gait Training Goal Gait Training Goal, Date Established 04/11/18 Gait Training Goal, Time to Achieve 2 wks Gait Training Goal, [place] Level independent Gait Training Goal, Assist Device other (see comments) (LRD ) Gait Training Goal, Distance to Achieve 150 ft Gait Training Goal, Outcome goal ongoing Transfer Training Goal Transfer Training Goal, Date Established 04/11/18 Transfer Training Goal, Time to Achieve 2 wks Transfer Training Goal, Activity Type all transfers Transfer Train Goal, [place] Level independent Transfer Training Goal, Assist Device [...] Discharge Disposition: (P) inpatient rehabilitation facility Pager: [phone] IRLANDA MUNOZ 04/20/2018 Occupational Therapy Rehabilitation Department [...] Level 0 Pain Goal 0 Transfer Assessment/Treatment [place] (Sit-Stand Transfers) contact guard assist [place] (Stand-Sit Transfers) contact guard assist Mxk-Jmzav-Lzy Assistive Device (Transfers) gait belt Safety Issues (Transfers) balance decreased during turns Impairments (Transfers) balance impaired;strength decreased Comment (Transfers) slightly impulsive at times; cues for safety awareness Gait Assessment/Treatment [place] (Gait) verbal cues required;nonverbal cues required (demo/gesture);contact guard assist Assistive Device (Gait) gait belt Distance in Feet (Gait) 300' Safety Issues (Gait) balance decreased during turns;step length decreased Impairments (Gait) balance impaired;strength decreased Comment (Gait) pt required mulit modal cues for directions; slightly impulsive; Lower Body Dressing Assessment/Training Position (LB Dressing) sitting;standing [place] Level (LB Dressing) set up required;verbal cues [...] good balance Sitting Balance: Dynamic fair balance Zrj-aq-Rhskb Balance fair balance Standing Balance: Static fair [...] DVT on coumadin who was transferred to [facility] for hemorrhagic shock with PEA arrest secondary to fistulableeding. He is a limited historian- history taken from chart- He had had some leaking from his LUEAVF site and was found by his mom in a pool of blood, pulseless. He was transfused 6 units of prbcsand transferred to [facility]. He had previous LAVF revision due to [...] father Social History and Habits: Lives in [place] with his mom. Non-smoker (quit 2000). No [...] Danielle Peoples DO Infectious Disease Fellow Pager [phone] Associated attestation - Katarzyna Guevara MD - [...] Junior MD - 04/19/2018 10:43 AM EDT [facility] Operative Note Patient Name: Christy Ambrose : [id number] MR#: [id number] Case Date: 04/19/2018 Surgeon: Surgeon(s) and Role: [...] Junior MD - 04/19/2018 10:25 AM EDT [facility] Operative Note Patient Name: Christy Ambrose : [id number] MR#: [id number] Case Date: 04/19/2018 Surgeon: Surgeon(s) and Role: [...] 04/18/2018 2:40 PM EDT OFFICE OF CARE MANAGEMENT/Writing Center Director/PROGRESS NOTE e-DH reviewed. Report received from vascular [...] wound base. --Had AVF ultrasound today in [facility] lab to assess AVF --NPO [...] 04/15/2018 12:36 PM EDT OFFICE OF CARE MANAGEMENT/Writing Center Director/PROGRESS NOTE e-DH reviewed. Report received from vascular [...] Discharge Disposition: (P) inpatient rehabilitation facility Pager: [phone] IRLANDA MUNOZ 04/15/2018 Occupational Therapy Rehabilitation Department [...] 0 Pain Goal 0 Transfer Assessment/Treatment Bed-Chair [place] (Transfers) contact guard assist Xxy-Htslm-Xvp Assistive Device (Transfers) (IV pole for support ) [place] (Sit-Stand Transfers) set up required;verbal cues required;contact guard assist [place] (Stand-Sit Transfers) verbal cues required;contact guard assist Bqp-Sqhqp-Tan Assistive Device (Transfers) (IV pole ) Safety Issues (Transfers) sequencing ability decreased;step length decreased;weight-shifting ability decreased Impairments (Transfers) balance impaired;strength decreased Comment (Transfers) cues for safe hand placement and task initation Gait Assessment/Treatment [place] (Gait) verbal cues required;contact guard assist Assistive [...] Body Dressing Assessment/Training Position (UB Dressing) sitting [place] Level (UB Dressing) contact guard assist Comment (UB Dressing) paco armstrong Grooming Assessment/Training Position (Grooming) sitting [place] Level (Grooming) set up required;verbal cues required;contact [...] Please contact Violetta Deng RN on pager [phone] or the wound care team at [phone] or pager [phone] with skin and wound care concerns or [...] for specific details, POC and goals. Recommendations ATHLETIC FIELD CUSTODIAN Diet Recommendation: regular solid, thin liquids Therapy Frequency: other (see comments) (D/C from speech intervention.) MIGUEL ANGEL PIERCE, YOUSIF Inpatient Speech Pathologist Pager: [phone] 04/15/18 1011 Rehab Evaluation Document Type therapy [...] Dysphagia Goal, Outcome goal met Clinical Impression ATHLETIC FIELD CUSTODIAN Swallowing Diagnosis other (see comments) (Functionally appearing oropharyngeal swallow) Rehab Potential/Prognosis, Swallowing good, to achieve stated therapy goals Therapy Frequency other (see comments) (D/C from speech intervention.) ATHLETIC FIELD CUSTODIAN Diet Recommendation regular solid;thin liquids * Plan [...] inpatient rehabilitation facility [facility] PTA Pager: [phone] Inpatient Physical Therapy 04/15/18 0918 Rehab Evaluation Document Type therapy note (daily [...] cook, clean independently. 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 pt usually ambulates w/o AD, but occasionally will walk w/ cane Pain Scale/Rating Pain Assessment Scale Word (verbal rating pain scale) Pain Level 0 Bed Mobility Assessment/Treatment Assistive Device (Bed Mobility) bed rails Dabzla-ww-Hig [place] (Bed Mobility) supervision required Comment (Bed Mobility) HOB elevated, extra time required Safety Issues (Bed Mobility) decreased use of arms for pushing/pulling Impairments (Bed Mobility) strength decreased Transfer Assessment/Treatment [place] (Sit-Stand Transfers) contact guard assist [place] (Stand-Sit Transfers) contact guard assist Drx-Ijfna-Ozo Assistive Device (Transfers) (IV pole) Safety Issues (Transfers) balance decreased during turns;step length decreased;loses balance backward Impairments (Transfers) balance impaired;strength decreased Comment (Transfers) Initially falling back onto bed with standing or marching in place, able to steady himself with the IV pole Gait Assessment/Treatment [place] (Gait) contact guard assist Assistive Device (Gait) [...] to sit/sit to sidelying Bed Mobility Goal, [place] Level independent Bed Mobility Goal, Outcome Achieved goal ongoing Gait Training Goal Gait Training Goal, Date Established 04/11/18 Gait Training Goal, Time to Achieve 2 wks Gait Training Goal, [place] Level independent Gait Training Goal, Assist Device other (see comments) (LRD ) Gait Training Goal, Distance to Achieve 150 ft Gait Training Goal, Outcome goal ongoing Transfer Training Goal Transfer Training Goal, Date Established 04/11/18 Transfer Training Goal, Time to Achieve 2 wks Transfer Training Goal, Activity Type all transfers Transfer Train Goal, [place] Level independent Transfer Training Goal, Assist Device [...] Easton MD - 04/14/2018 8:19 AM EDT [facility] Operative Note Patient Name: Christy Ambrose : [id number] MR#: [id number] Case Date: 04/14/2018 Surgeon: Surgeon(s) and Role: [...] he was found down. [facility] with 2 tourniquets on since [...] I have met with the patient/sales representative livestock to discuss discharge planning needs. I have provided the [facility], Office of Care Management letter from the [employer] pertaining to rehab referrals. I have also provided a letter describing our affiliations within the [facility] and educated them about their right to choose where referrals are placed. ?? I reviewed the different levels of rehab including SNF, swing, acute and LTAC with the patient/sales representative livestock. ?? The patient/sales representative livestock has been provided a list of facilities within their preferred geographic area. ?? I have requested that the patient/sales representative livestock provide at least three choices for referral. ?? The patient/sales representative livestock have requested referrals to: ?? 1. [facility]. ?? 2. [facility] ?? 3. ?? Expected date of discharge: next 24- 48 hours Note routed to Director Of Elementary Education who will communicate referrals to facilities and [...] epilepsy, and prior TBI who presents to [facility] s/p LUE bleeding with PEA arrest. Description [...] Pt intubated in field. Pt taken to [facility], where second tourniquet applied and pt received 6U PRBC. Transferred to [facility]. Per H and P Dr. Burkett. Past Medical History: Diagnosis Date ??? BP (high blood pressure) ??? DVT (deep venous thrombosis) ??? Gout ??? Hypertension ??? Kidney problem ??? Pneumonia ??? TBI (traumatic brain injury) 1980 Hospitalizations Within the Past 30 Days: [facility] Anticipated Length Of Stay (If known): Expected Length of Hospitalization: 5-7 days Current Decision-Making Capacity: Alert but confused. Awakes when I speak but confused when answering. Advance Care Planning: Adv. Directives are from 2010, pt's POA is brother Lucas Ambrose who resides in [facility], pat's 86 year old mother Ilda is [...] Insurance: N/A Prescription Coverage: yes Preferred Pharmacy: [facility] in [place], [place]. Primary Care Provider: Carroll Garcia DO [phone] Patient/Caregiver Goals of Treatment: to go to [...] longer needed); will follow up with Transplant Nephrology/[facility] today Plan: to go to acute rehab at discharge. A member of the Care Management team will continue to monitor progress, follow for continuity of care and assist with transition of care planning. [place] Le[place] RN Pager: [phone] * Care Management - [place] Le[place] RN - 04/12/2018 2:33 PM EDT Based on discussions with the multi-disciplinary healthcare team, the patient would benefit from acute inpatient rehab. level of care at discharge. ?? I have met with the patient/sales representative livestock to discuss discharge planning needs. I have provided the [facility], Office of Care Management letter from the [employer] pertaining to rehab referrals. I have also provided a letter describing our affiliations within the [facility] and educated them about their right to choose where referrals are placed. ?? I reviewed the different levels of rehab including SNF, swing, acute and LTAC with the patient/sales representative livestock. ?? The patient/sales representative livestock has been provided a list of facilities within their preferred geographic area. ?? I have requested that the patient/sales representative livestock provide at least three choices for referral. ?? The patient/sales representative livestock have requested referrals to: ?? 1. [facility] [place], [place] ?? 2. [facility] ?? 3. [facility]. ?? Expected date of discharge: next 24-72 hours Note routed to Director Of Elementary Education who will communicate referrals to facilities and provide any required information. * Consult Note - Ashlie Willis RPH - 04/12/2018 10:24 AM EDT Clinical Pharmacist Note - Renal Dose Adjustment for Antimicrobials Christy Ambrose (A# [id number]) is being treated with the following antimicrobial [...] OUTCOME EVALUATION: * Plan of Care - Negirta French RN - 04/11/2018 5:54 PM EDT [...] Anticipated Discharge Disposition: inpatient rehabilitation facility Pager: [phone] RAFAELA ALONZO OT 04/11/2018 Occupational Therapy Rehabilitation [...] Comment Patient lives with his mother at [facility]. Ramp to enter, then elevator to 5th floor. Once inside, single floor. Tub shower, no chair. Regular bed Functional Level Prior Prior Functional Level Comment Reports independence with all ADL/IADL tasks. Drives. Works at the [employer]. Only ambulates with a cane on the [...] Assessment/Treatment Assistive Device (Bed Mobility) bed rails Paanyf-wj-Cid [place] (Bed Mobility) minimum assist (75% patient effort) Comment (Bed Mobility) HOB elevated Transfer Assessment/Treatment [place] (Sit-Stand Transfers) moderate assist (50% patient effort);2 person assist required;verbal cues required [place] (Stand-Sit Transfers) moderate assist (50% patient effort);2 person assist required;verbal cues required Hvy-Sakra-Icd Assistive Device (Transfers) (Initally stood w/o any AD. Poor balance ) Gait Assessment/Treatment [place] (Gait) moderate assist (50% patient effort);2 person [...] Body Dressing Assessment/Training Position (UB Dressing) sitting [place] Level (UB Dressing) minimum assist (75% patient effort) Lower Body Dressing Assessment/Training Position (LB Dressing) sitting [place] Level (LB Dressing) minimum assist (75% patient [...] were not included. Infiltration/Extravasation Scale Christy Ambrose [id number] IC18/IC18-A Infiltration appearance: Infiltration harm % for [...] to comfort. MD at the Pt's bedside. COMMUNITY SUPPORT SPECIALIST CARING FOR THIS PATIENT WILL CONTINUE TO [...] assist with turn. Left lower arm in iganni wrap per vascular surgery. Upper arm with [...] chair to 2 hour intervals. Use a raksul chair cushion beneath patient at all times while in the chair. Reinforce teaching to shift weight every 15 minutes while in the chair. Following hospital standard for pressure ulcer prevention and skin care. Refer to adult/pediatric pressure ulcer prevention job aid in the clinical policy library. Wound care will follow weekly. Discussed plan with: RN: Elva Please contact MEAGHAN HOOD RN on pager [phone] or the wound care team at [phone] or pager [phone] with skin and wound care concerns or [...] Therapy Frequency: 2-3 times/wk MIGUEL ANGEL PIERCE, ATHLETIC FIELD CUSTODIAN Inpatient Speech Pathologist Pager: [phone] 04/08/18 3482 Rehab Evaluation Document Type evaluation Total Evaluation [...] patient (RN) Speech Language Pathology Goal Types ATHLETIC FIELD CUSTODIAN Goal Types Dysphagia Goal (Group) Dysphagia Goal Dysphagia Goal, Date Established 04/08/18 Dysphagia Goal, Time to Achieve by discharge Oral Nutritional Level Goal safely tolerates/maintains adequate oral nutrition;no signs/symptoms ofaspiration present Clinical Impression ATHLETIC FIELD CUSTODIAN Swallowing Diagnosis oral dysfunction;other (see comments) (Functionally appearing pharyngeal dysphagia. ) Rehab Potential/Prognosis, Swallowing good, to achieve stated therapy goals Therapy Frequency 2-3 times/wk ATHLETIC FIELD CUSTODIAN Diet Recommendation puree;thin liquids * Plan of [...] dose epi. Intubated in field. Arrived at [facility] ED intubated. Received 6 units pRBC. Transferred to [facility] and went to OR with vascular for [...] [facility] OR ??? PRO DECOMPRESS FOREARM, BRACH ART EXPLOR Left 04/06/2018 FASCIOTOMY, FOREARM, WITH BRACHIAL ARTERY EXPLORATION (WRVU 8.41) performed by Lida Peter MDat [facility] MAIN OR ??? PRO DIRECT REPAIR RUPTURED ANEURYSM, AXILLO-BRACHIAL ARM INCIS Left 04/06/2018 @REPAIR, RUPTURED AXILLARY OR BRACHIAL ARTERY ANEURYSM BY ARM INCISION (WRVU *) performed by Lida Peter MD at [facility] MAIN OR [...] 4.0CM, TRUNK performed by SABRINA MEDRANO at [facility] OR ??? PRO LAP, RADICAL NEPHRECTOMY Left 05/31/2017 @LAPAROSCOPY, RADICAL NEPHRECTOMY (WRVU 25.06) performed by Jax Mills MD at [facility] MA[facility] OR ??? PRO REBL VES GRAFT, UP EXTREM Left 04/06/2018 REPAIR BLOOD VESSEL WITH GRAFT OTHER THAN VEIN, UPPER EXTREMITY (WRVU 15.83) performed by Lida Peter MD at [facility] MA[facility] OR ??? PRO RELIEVE PRESSURE ON NERVE(S) Left 04/06/2018 (MSURG) CARPAL TUNNEL (WRVU 4.82) performed by Hay Sparks MD at [facility] OR ??? PRO REPAIR INTERMEDIATE S/A/T/E 2.6-7.5 CM 04/19/2012 REPAIR INTERMEDIATE WOUND, (NO HANDS OR FEET) 2.6 TO 7.5CM, UPPER EXTREMITY performed by SABRINA MEDRANO at [facility] MA[facility] OR ??? PRO REVISE MEDIAN N/CARPAL TUNNEL SURG Left 04/06/2018 MEDIAN NERVE DECOMPRESSION (CARPAL TUNNEL RELEASE) (WRVU 4.97) performed by Lida Peter MD [facility] OR ? ? 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 Consider ATHLETIC FIELD CUSTODIAN consult for full evaluation and diet recommendations. 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 Apparently patient was found at his home unresponsive and was pulseless requiring several rounds of chest compressions,epinephrine and IV fluid bolus with a return of spontaneous circulation.Intubated in the field and taken to [facility] received 6 units of the PRBCs,2 FFPs for hemoglobin of 4 and required 2 tourniquets for his AV fistula leaking. Transferred to [facility] and was taken to OR by vascular [...] 4.0CM, TRUNK performed by SABRINA MEDRANO at [facility] OR ??? PRO LAP, RADICAL NEPHRECTOMY Left 05/31/2017 @LAPAROSCOPY, RADICAL NEPHRECTOMY (WRVU 25.06) performed by Jax Mills MD at [facility] MA[facility] OR ??? PRO REPAIR INTERMEDIATE S/A/T/E 2.6-7.5 CM 04/19/2012 REPAIR INTERMEDIATE WOUND, (NO HANDS OR FEET) 2.6 TO 7.5CM, UPPER EXTREMITY performed by SABRINA MEDRANO at [facility] OR ? [...] Latest Ref Range: Clear Hazy (A) Spec [place] UA Latest Ref Range: 1.002 - 1.030 [...] w/ Dr.Chobanian Radha Hughes MD Nephrology Fellow #[id number] * Op Note - Bhargavi Junior MD - 04/07/2018 7:56 AM EDT [facility] Operative Note Patient Name: Christy Ambrose : [id number] MR#: [id number] Case Date: 04/06/2018 Surgeon: Surgeon(s) and Role: [...] he was found down. He presented to [facility] in hemorrhagic shock with 2 tourniquets on [...] Implant Name Type Inv. Item Serial No. Scheduling Assistant Lot No. LRB No. Used Action PATCH,BIOL,XENOSURE,.8X8CM ([id number]) - [id number] IMPLANTS PATCH,BIOL,XENOSURE,.8X8CM ([id number]) 0 [facility] VASCULAR [facility] [id number] Implanted Infection Bundle used? No, ancef [...] Operative Note Patient Name: Christy Ambrose : [id number] MR#: [id number] Case Date: 04/06/2018 Surgeon: Surgeon(s) and Role: [...] Sparks MD - 04/06/2018 4:00 PM EDT [facility] Operative Note Patient Name: Christy Ambrose : [id number] MR#: [id number] Case Date: 04/06/2018 Surgeon: Surgeon(s) and Role: [...] Routine 04/07/2018 5:56 AM EDT CARDIAC ENZYMES ([facility]) Routine 04/07/2018 5:55 AM EDT HEMOGLOBIN AND [...] IMPLANTABLE DEVICES SCAN 04/06/2018 12:00 AM EDT AQUACULTURE PROGRAM DIRECTOR SCAN 04/06/2018 12:00 AM EDT FILM LIBRARY STORAGE ONLY CT HEAD AND SPINE STAT 04/06/2018 12:00 AM EDT documented in this encounter Results * (ABNORMAL) Basic Metabolic Panel (non-fasting) (05/04/2018 3:00 AM EDT) Glucose 100 65 - 199 mg/dL [facility] Comment:Diabetes: >=200 mg/d L plus symptoms Blood Urea Nitrogen 40(H) 10 - 20 mg/dL [facility] Creatinine 3.05(H) 0.80 - 1.50 mg/dL [facility] Sodium 131(L) 135 - 145 mmol/L [facility] Potassium 4.1 3.5 - 5.0 mmol/L [facility] Comment: Please note: ??Patients with WBC >100,000 may have falsely elevated Potassium levels. ??For accurate Potassium quantification in these patients send serum separator tube (gold top) for subsequent determinations. ??Contact the Clinical Chemistry Laboratory if there are any questions. Chloride 99 98 - 107 mmol/L [facility] Carbon Dioxide 19(L) 22 - 31 mmol/L [facility] Anion Gap 13 5 - 15 mmol/L [facility] Calcium 8.0(L) 8.5 - 10.5 mg/dL [facility] Est Glomerular Filtration Rate 22(L) >=60 mL/min/1. 73 m?? [facility] Comment: The eGFR was calculated using the CKD-EPI equation. As with all creatinine based estimates of kidney function, eGFR values calculated with the CKD-EPI equation are not accurate in patients with acute kidney failure, extremes of body mass or the acutely ill. [email or web address] eGFR 25(L) >=60 mL/min/1. 73 m?? [facility] Comment: The eGFR was calculated using the CKD-EPI equation. As with all creatinine based estimates of kidney function, eGFR values calculated with the CKD-EPI equation are not accurate in patients with acute kidney failure, extremes of body mass or the acutely ill. [email or web address] Blood specimen (specimen) 05/04/2018 3:00 AM EDT 05/04/2018 3:08 AM EDT Narrative Resulting Agency Comment Spec In Lab Hay Sparks MD CHEMISTRY ORDERABLES Performing Organization Address [facility] Co de Phone Number [facility] [place] [address] * Vancomycin, trough (05/03/2018 6:40 PM EDT) Pathologist [facility] Vancomycin, Trough 14.2 mg/L [facility] [...] Sparks MD CHEMISTRY ORDERABLES Performing Organization Address [facility] Co de Phone Number [facility] [place] [address] * Differential, Automated (05/03/2018 3:06 AM EDT) Pathologist [facility] Neutrophil % 60.8 % [facility] Neutrophil Absolute 3.01 1.70 - 6.10 x10(3)/[facility] Lymph % 19.8 % [facility] Lymphocytes Abs 1.0 0.9 - 3.2 x10(3)/[facility] Monocyte % 10.7 % [facility] Monocyte Abs 0.5 0.3 - 0.9 x10(3)/[facility] Eos % 8.1 % [facility] Eosinophils Abs 0.4 0.0 - 0.4 x10(3)/[facility] Basophil % 0.4 % [facility] Baso Absolute 0.0 0.0 - 0.1 x10(3)/[facility] Immature Gran % 0.20 % [facility] Comment: Immature granulocytes(IG's)percentage and absolute count will include metamyelocytes, myelocytes, and promyelocytes. Blood smears from CBCs yielding IG's will be scanned manually for concordance. If this scan disagrees with the automated IG or if promyelocytes are noted, a manual differential will be performed. Immature Gran Absolute 0.01 0.00 - 0.04 x10(3)/[facility] Blood specimen (specimen) 05/03/2018 3:06 AM EDT 05/03/2018 3:16 AM EDT Narrative Resulting Agency Comment Spec In Lab Apple Gutierrez MD HEMATOLOGY ORDERABLE S [facility] [place] [address] * (ABNORMAL) Hemogram (05/03/2018 3:06 AM EDT) White Blood Cell 5.0 4.0 - 9.5 x10(3)/[facility]OR[facility] Red Blood Cell 2.64(L) 4.58 - 5.54 x10(6)/ L [facility] Hemoglobin 8.2(L) 13.7 - 16.5 gm/dL [facility] Hematocrit 25.1(L) 40.5 - 48.5 % [facility] Mean Cell Volume 95.1(H) 82.9 - 93.1 fL [facility] Mean Cell Hemoglobin 31.1 27.5 - 32.1 pg [facility] Mean Cell Hemoglobin Concentration 32.7 32.0 - 35.7 gm/dL [facility] Platelet 160 145 - 357 x10(3)/ L [facility] RDW Standard Deviation 54.3(H) 36.0 - 45.0 fL [facility] RDW coefficient of variation 15.6(H) 11.4 - 13.8 % [facility] Mean Platelet Volume 9.0 7.6 - 12.9 fL [facility] NRBC% auto 0.0 % [facility] NRBC Absolute 0.000 0.000 - 0.000 x10(3)/mc L [facility] Blood specimen (specimen) 05/03/2018 3:06 AM EDT 05/03/2018 3:16 AM EDT Narrative Resulting Agency Comment Spec In Lab Apple Gutierrez MD HEMATOLOGY ORDERABLE S [facility] [place] [address] * (ABNORMAL) Basic Metabolic Panel (non-fasting) (05/03/2018 3:06 AM EDT) Glucose 99 65 - 199 mg/dL [facility] Comment:Diabetes: >=200 mg/d L plus symptoms Blood Urea Nitrogen 35(H) 10 - 20 mg/dL [facility] Creatinine 2.58(H) 0.80 - 1.50 mg/dL [facility] Sodium 135 135 - 145 mmol/L [facility] Potassium 4.2 3.5 - 5.0 mmol/L [facility] Comment: Please note: ??Patients with WBC >100,000 may have falsely elevated Potassium levels. ??For accurate Potassium quantification in these patients send serum separator tube (gold top) for subsequent determinations. ??Contact the Clinical Chemistry Laboratory if there are any questions. Chloride 101 98 - 107 mmol/L [facility] Carbon Dioxide 20(L) 22 - 31 mmol/L [facility] Anion Gap 14 5 - 15 mmol/L [facility] Calcium 7.9(L) 8.5 - 10.5 mg/dL [facility] Est Glomerular Filtration Rate 27(L) >=60 mL/min/1. 73 m?? [facility] Comment: The eGFR was calculated using the CKD-EPI equation. As with all creatinine based estimates of kidney function, eGFR values calculated with the CKD-EPI equation are not accurate in patients with acute kidney failure, extremes of body mass or the acutely ill. [email or web address]UG[facility] eGFR 31(L) >=60 mL/min/1. 73 m?? [facility] Comment: The eGFR was calculated using the CKD-EPI equation. As with all creatinine based estimates of kidney function, eGFR values calculated with the CKD-EPI equation are not accurate in patients with acute kidney failure, extremes of body mass or the acutely ill. [email or web address]UG[facility] Blood specimen (specimen) 05/03/2018 3:06 AM EDT 05/03/2018 3:16 AM EDT Narrative Resulting Agency Comment Spec In Lab Hay Sparks MD CHEMISTRY ORDERABLES Performing Organization Address City/State/[facility] Co de Phone Number [facility] [place] [address] * Differential, Automated (05/02/2018 3:20 AM EDT) Neutrophil % 60.2 % [facility] Neutrophil Absolute 2.89 1.70 - 6.10 x10(3)/[facility] Lymph % 20.8 % [facility] Lymphocytes Abs 1.0 0.9 - 3.2 x10(3)/[facility] Monocyte % 9.2 % [facility] Monocyte Abs 0.4 0.3 - 0.9 x10(3)/[facility] Eos % 8.8 % [facility] Eosinophils Abs 0.4 0.0 - 0.4 x10(3)/[facility] Basophil % 0.6 % [facility] Baso Absolute 0.0 0.0 - 0.1 x10(3)/[facility] Immature Gran % 0.40 % [facility] Comment: Immature granulocytes(IG's)percentage and absolute count will include metamyelocytes, myelocytes, and promyelocytes. Blood smears from CBCs yielding IG's will be scanned manually for concordance. If this scan disagrees with the automated IG or if promyelocytes are noted, a manual differential will be performed. Immature Gran Absolute 0.02 0.00 - 0.04 x10(3)/mcL [facility] Blood specimen (specimen) 05/02/2018 3:20 AM EDT 05/02/2018 3:26 AM EDT Narrative Resulting Agency Comment Spec In Lab Apple Gutierrez MD HEMATOLOGY ORDERABLE S [facility] [place] [address] * (ABNORMAL) Hemogram (05/02/2018 3:20 AM EDT) White Blood Cell 4.8 4.0 - 9.5 x10(3)/mc L [facility] Red Blood Cell 2.61(L) 4.58 - 5.54 x10(6)/mc L [facility] Hemoglobin 8.2(L) 13.7 - 16.5 gm/dL [facility] Hematocrit 24.6(L) 40.5 - 48.5 % [facility] Mean Cell Volume 94.3(H) 82.9 - 93.1 fL [facility] Mean Cell Hemoglobin 31.4 27.5 - 32.1 pg [facility] Mean Cell Hemoglobin Concentration 33.3 32.0 - 35.7 gm/dL [facility] Platelet 168 145 - 357 x10(3)/mc L [facility] RDW Standard Deviation 54.4(H) 36.0 - 45.0 [facility] RDW coefficient of variation 15.5(H) 11.4 - 13.8 % [facility] Mean Platelet Volume 8.7 7.6 - 12.9 fL [facility] NRBC% auto 0.0 % [facility] NRBC Absolute 0.000 0.000 - 0.000 x10(3)/mc L [facility] Blood specimen (specimen) 05/02/2018 3:20 AM EDT 05/02/2018 3:26 AM EDT Narrative Resulting Agency Comment Spec In Lab Apple Gutierrez MD HEMATOLOGY ORDERABLE S [facility] [place] [address] * (ABNORMAL) Basic Metabolic Panel (non-fasting) (05/02/2018 3:20 AM EDT) Glucose 94 65 - 199 mg/dL [facility] Comment:Diabetes: >=200 mg/d L plus symptoms Blood Urea Nitrogen 38(H) 10 - 20 mg/dL [facility] Creatinine 2.73(H) 0.80 - 1.50 mg/dL [facility] Sodium 135 135 - 145 mmol/L [facility] Potassium 4.3 3.5 - 5.0 mmol/L [facility] Comment: Please note: ??Patients with WBC >100,000 may have falsely elevated Potassium levels. ??For accurate Potassium quantification in these patients send serum separator tube (gold top) for subsequent determinations. ??Contact the Clinical Chemistry Laboratory if there are any questions. Chloride 103 98 - 107 mmol/L [facility] Carbon Dioxide 19(L) 22 - 31 mmol/L [facility] Anion Gap 13 5 - 15 mmol/L [facility] Calcium 7.7(L) 8.5 - 10.5 mg/dL [facility] Est Glomerular Filtration Rate 25(L) >=60 mL/min/1. 73 m?? [facility] Comment: The eGFR was calculated using the CKD-EPI equation. As with all creatinine based estimates of kidney function, eGFR values calculated with the CKD-EPI equation are not accurate in patients with acute kidney failure, extremes of body mass or the acutely ill. [email or web address] eGFR 29(L) >=60 mL/min/1. 73 m?? [facility] Comment: The eGFR was calculated using the CKD-EPI equation. As with all creatinine based estimates of kidney function, eGFR values calculated with the CKD-EPI equation are not accurate in patients with acute kidney failure, extremes of body mass or the acutely ill. [email or web address] Blood specimen (specimen) 05/02/2018 3:20 AM EDT 05/02/2018 3:25 AM EDT Narrative Resulting Agency Comment Spec In Lab Hay Sparks MD CHEMISTRY ORDERABLES [facility] [place] [address] * Differential, Automated (05/01/2018 4:00 AM EDT) Neutrophil % 60.0 % [facility] Neutrophil Absolute 2.98 1.70 - 6.10 x10(3)/[facility] Lymph % 21.2 % [facility] Lymphocytes Abs 1.0 0.9 - 3.2 x10(3)/[facility] Monocyte % 9.7 % [facility] Monocyte Abs 0.5 0.3 - 0.9 x10(3)/[facility] Eos % 8.1 % [facility] Eosinophils Abs 0.4 0.0 - 0.4 x10(3)/[facility] Basophil % 0.8 % [facility] Baso Absolute 0.0 0.0 - 0.1 x10(3)/[facility] Immature Gran % 0.20 % [facility] Comment: Immature granulocytes(IG's)percentage and absolute count will include metamyelocytes, myelocytes, and promyelocytes. Blood smears from CBCs yielding IG's will be scanned manually for concordance. If this scan disagrees with the automated IG or if promyelocytes are noted, a manual differential will be performed. Immature Gran Absolute 0.01 0.00 - 0.04 x10(3)/[facility] Blood specimen (specimen) 05/01/2018 4:00 AM EDT 05/01/2018 4:13 AM EDT Narrative Resulting Agency Comment Spec In Lab Apple Gutierrez MD HEMATOLOGY ORDERABLE S [facility] [place] [address] * (ABNORMAL) Hemogram (05/01/2018 4:00 AM EDT) White Blood Cell 5.0 4.0 - 9.5 x10(3)/[facility] LAB[facility] Red Blood Cell 2.71(L) 4.58 - 5.54 x10(6)/[facility] Hemoglobin 8.2(L) 13.7 - 16.5 gm/dL [facility] Hematocrit 25.6(L) 40.5 - 48.5 % [facility] Mean Cell Volume 94.5(H) 82.9 - 93.1 [facility] Mean Cell Hemoglobin 30.3 27.5 - 32.1 pg [facility] Mean Cell Hemoglobin Concentration 32.0 32.0 - 35.7 gm/dL [facility] Platelet 192 145 - 357 x10(3)/[facility] RDW Standard Deviation 53.5(H) 36.0 - 45.0 [facility] RDW coefficient of variation 15.5(H) 11.4 - 13.8 % [facility] Mean Platelet Volume 8.9 7.6 - 12.9 [facility] NRBC% auto 0.0 % [facility] NRBC Absolute 0.000 0.000 - 0.000 x10(3)/ L [facility] Blood specimen (specimen) 05/01/2018 4:00 AM EDT 05/01/2018 4:13 AM EDT Narrative Resulting Agency Comment Spec In Lab Apple Gutierrez MD HEMATOLOGY ORDERABLE S [facility] [place] [address] * (ABNORMAL) Basic Metabolic Panel (non-fasting) (05/01/2018 4:00 AM EDT) Glucose 101 65 - 199 mg/dL [facility] Comment:Diabetes: >=200 mg/d L plus symptoms Blood Urea Nitrogen 36(H) 10 - 20 mg/dL [facility] Creatinine 2.66(H) 0.80 - 1.50 mg/dL [facility] Sodium 134(L) 135 - 145 mmol/L [facility] Potassium 3.9 3.5 - 5.0 mmol/L [facility] Comment: Please note: ??Patients with WBC >100,000 may have falsely elevated Potassium levels. ??For accurate Potassium quantification in these patients send serum separator tube (gold top) for subsequent determinations. ??Contact the Clinical Chemistry Laboratory if there are any questions. Chloride 101 98 - 107 mmol/L [facility] Carbon Dioxide 19(L) 22 - 31 mmol/L [facility] Anion Gap 14 5 - 15 mmol/L [facility] Calcium 8.0(L) 8.5 - 10.5 mg/dL [facility] Est Glomerular Filtration Rate 26(L) >=60 mL/min/1. 73 m?? [facility] Comment: The eGFR was calculated using the CKD-EPI equation. As with all creatinine based estimates of kidney function, eGFR values calculated with the CKD-EPI equation are not accurate in patients with acute kidney failure, extremes of body mass or the acutely ill. [email or web address] eGFR 30(L) >=60 mL/min/1. 73 m?? [facility] Comment: The eGFR was calculated using the CKD-EPI equation. As with all creatinine based estimates of kidney function, eGFR values calculated with the CKD-EPI equation are not accurate in patients with acute kidney failure, extremes of body mass or the acutely ill. [email or web address] Blood specimen (specimen) 05/01/2018 4:00 AM EDT 05/01/2018 4:13 AM EDT Narrative Resulting Agency Comment Spec In Lab Hay Sparks MD CHEMISTRY ORDERABLES Performing Organization Address [facility] Co de Phone Number [facility] [place] [address] * Vancomycin, trough (04/30/2018 7:05 PM EDT) Pathologist [facility] Vancomycin, Trough 15.3 mg/L M [facility] Comment: Therapeutic range for [...] Sparks MD CHEMISTRY ORDERABLES Performing Organization Address [facility] Co de Phone Number [facility] [place] [address] * Differential, Automated (04/30/2018 2:55 AM EDT) Neutrophil % 60.3 % [facility] Neutrophil Absolute 3.15 1.70 - 6.10 x10(3)/mcL [facility] Lymph % 22.8 % [facility] Lymphocytes Abs 1.2 0.9 - 3.2 x10(3)/[facility] Monocyte % 10.2 % [facility] Monocyte Abs 0.5 0.3 - 0.9 x10(3)/[facility] Eos % 5.7 % [facility] Eosinophils Abs 0.3 0.0 - 0.4 x10(3)/[facility] Basophil % 0.6 % [facility] Baso Absolute 0.0 0.0 - 0.1 x10(3)/[facility] Immature Gran % 0.40 % [facility] Comment: Immature granulocytes(IG's)percentage and absolute count will include metamyelocytes, myelocytes, and promyelocytes. Blood smears from CBCs yielding IG's will be scanned manually for concordance. If this scan disagrees with the automated IG or if promyelocytes are noted, a manual differential will be performed. Immature Gran Absolute 0.02 0.00 - 0.04 x10(3)/[facility] Blood specimen (specimen) 04/30/2018 2:55 AM EDT 04/30/2018 3:06 AM EDT Narrative Resulting Agency Comment Spec In Lab Apple Gutierrez MD HEMATOLOGY ORDERABLE S [facility] [place] [address] * (ABNORMAL) Hemogram (04/30/2018 2:55 AM EDT) White Blood Cell 5.2 4.0 - 9.5 x10(3)/mc L [facility] Red Blood Cell 2.53(L) 4.58 - 5.54 x10(6)/mc L [facility] Hemoglobin 7.9(L) 13.7 - 16.5 gm/dL [facility] Hematocrit 24.3(L) 40.5 - 48.5 % [facility] Mean Cell Volume 96.0(H) 82.9 - 93.1 fL [facility] Mean Cell Hemoglobin 31.2 27.5 - 32.1 pg [facility] Mean Cell Hemoglobin Concentration 32.5 32.0 - 35.7 gm/dL [facility] Platelet 186 145 - 357 x10(3)/mc L [facility] RDW Standard Deviation 54.7(H) 36.0 - 45.0 fL [facility] RDW coefficient of variation 15.6(H) 11.4 - 13.8 % [facility] Mean Platelet Volume 8.7 7.6 - 12.9 fL [facility] NRBC% auto 0.0 % [facility] NRBC Absolute 0.000 0.000 - 0.000 x10(3)/mc L [facility] Blood specimen (specimen) 04/30/2018 2:55 AM EDT 04/30/2018 3:06 AM EDT Narrative Resulting Agency Comment Spec In Lab Apple Gutierrez MD HEMATOLOGY ORDERABLE S [facility] [place] [address] * (ABNORMAL) Basic Metabolic Panel (non-fasting) (04/30/2018 2:55 AM EDT) Glucose 96 65 - 199 mg/dL [facility] Comment:Diabetes: >=200 mg/d L plus symptoms Blood Urea Nitrogen 39(H) 10 - 20 mg/dL [facility] Creatinine 2.94(H) 0.80 - 1.50 mg/dL [facility] Sodium 135 135 - 145 mmol/L [facility] Potassium 4.5 3.5 - 5.0 mmol/L [facility] Comment: Please note: ??Patients with WBC >100,000 may have falsely elevated Potassium levels. ??For accurate Potassium quantification in these patients send serum separator tube (gold top) for subsequent determinations. ??Contact the Clinical Chemistry Laboratory if there are any questions. Chloride 100 98 - 107 mmol/L [facility] Carbon Dioxide 21(L) 22 - 31 mmol/L [facility] Anion Gap 14 5 - 15 mmol/L [facility] Calcium 8.1(L) 8.5 - 10.5 mg/dL [facility] Est Glomerular Filtration Rate 23(L) >=60 mL/min/1. 73 m?? [facility] Comment: The eGFR was calculated using the CKD-EPI equation. As with all creatinine based estimates of kidney function, eGFR values calculated with the CKD-EPI equation are not accurate in patients with acute kidney failure, extremes of body mass or the acutely ill. [email or web address]/[email or web address]etra Systemskf eGFR 26(L) >=60 mL/min/1. 73 m?? [facility] Comment: The eGFR was calculated using the CKD-EPI equation. As with all creatinine based estimates of kidney function, eGFR values calculated with the CKD-EPI equation are not accurate in patients with acute kidney failure, extremes of body mass or the acutely ill. [email or web address] Blood specimen (specimen) 04/30/2018 2:55 AM EDT 04/30/2018 3:06 AM EDT Narrative Resulting Agency Comment Spec In Lab Hay Sparks MD CHEMISTRY ORDERABLES [facility] [place] [address] * Vancomycin, trough (04/29/2018 5:15 PM EDT) Vancomycin, Trough 15.9 mg/L M [facility] Comment: Therapeutic range for [...] CHEMISTRY ORDERAB LES Performing Organization Address [facility] de Phone Number [facility] [place] [address] * Vancomycin, trough (04/29/2018 6:55 AM EDT) [...] Sparks MD CHEMISTRY ORDERABLES Performing Organization Address [facility] Co de Phone Number [facility] [place] [address] * Differential, Automated (04/29/2018 5:40 AM EDT) Neutrophil % 63.0 % [facility] Neutrophil Absolute 3.22 1.70 - 6.10 x10(3)/[facility] Lymph % 21.1 % [facility] Lymphocytes Abs 1.1 0.9 - 3.2 x10(3)/[facility] Monocyte % 9.0 % [facility] Monocyte Abs 0.5 0.3 - 0.9 x10(3)/[facility] Eos % 5.5 % [facility] Eosinophils Abs 0.3 0.0 - 0.4 x10(3)/[facility] Basophil % 0.8 % [facility] Baso Absolute 0.0 0.0 - 0.1 x10(3)/[facility] Immature Gran % 0.60 % [facility] Comment: Immature granulocytes(IG's)percentage and absolute count will include metamyelocytes, myelocytes, and promyelocytes. Blood smears from CBCs yielding IG's will be scanned manually for concordance. If this scan disagrees with the automated IG or if promyelocytes are noted, a manual differential will be performed. Immature Gran Absolute 0.03 0.00 - 0.04 x10(3)/[facility] Blood specimen (specimen) 04/29/2018 5:40 AM EDT 04/29/2018 6:11 AM EDT Narrative Resulting Agency Comment Spec In Lab Apple Gutierrez MD HEMATOLOGY ORDERABLE S [facility] [place] [address] * (ABNORMAL) Hemogram (04/29/2018 5:40 AM EDT) White Blood Cell 5.1 4.0 - 9.5 x10(3)/mc L [facility] Red Blood Cell 2.56(L) 4.58 - 5.54 x10(6)/mc L [facility] Hemoglobin 7.7(L) 13.7 - 16.5 gm/dL [facility] Hematocrit 24.2(L) 40.5 - 48.5 % [facility] Mean Cell Volume 94.5(H) 82.9 - 93.1 fL [facility] Mean Cell Hemoglobin 30.1 27.5 - 32.1 pg [facility] Mean Cell Hemoglobin Concentration 31.8(L) 32.0 - 35.7 gm/dL [facility] Platelet 216 145 - 357 x10(3)/ L [facility] RDW Standard Deviation 53.7(H) 36.0 - 45.0 fL [facility] RDW coefficient of variation 15.4(H) 11.4 - 13.8 % [facility] Mean Platelet Volume 8.9 7.6 - 12.9 fL [facility] NRBC% auto 0.0 % [facility] NRBC Absolute 0.000 0.000 - 0.000 x10(3)/mc L [facility] Blood specimen (specimen) 04/29/2018 5:40 AM EDT 04/29/2018 6:11 AM EDT Narrative Resulting Agency Comment Spec In Lab Apple Gutierrez MD HEMATOLOGY ORDERABLE S [facility] [place] [address] * (ABNORMAL) Basic Metabolic Panel (non-fasting) (04/29/2018 5:40 AM EDT) Glucose 91 65 - 199 mg/dL [facility] Comment:Diabetes: >=200 mg/d L plus symptoms Blood Urea Nitrogen 41(H) 10 - 20 mg/dL [facility] Creatinine 2.51(H) 0.80 - 1.50 mg/dL [facility] Sodium 136 135 - 145 mmol/L [facility] Potassium 4.9 3.5 - 5.0 mmol/L [facility] Comment: Please note: ??Patients with WBC >100,000 may have falsely elevated Potassium levels. ??For accurate Potassium quantification in these patients send serum separator tube (gold top) for subsequent determinations. ??Contact the Clinical Chemistry Laboratory if there are any questions. Chloride 104 98 - 107 mmol/L [facility] Carbon Dioxide 21(L) 22 - 31 mmol/L [facility] Anion Gap 11 5 - 15 mmol/L [facility] Calcium 8.0(L) 8.5 - 10.5 mg/dL [facility] Est Glomerular Filtration Rate 28(L) >=60 mL/min/1. 73 m?? [facility] Comment: The eGFR was calculated using the CKD-EPI equation. As with all creatinine based estimates of kidney function, eGFR values calculated with the CKD-EPI equation are not accurate in patients with acute kidney failure, extremes of body mass or the acutely ill. [email or web address]/[facility]UGOnkf eGFR 32(L) >=60 mL/min/1. 73 m?? [facility] Comment: The eGFR was calculated using the CKD-EPI equation. As with all creatinine based estimates of kidney function, eGFR values calculated with the CKD-EPI equation are not accurate in patients with acute kidney failure, extremes of body mass or the acutely ill. [email or web address]UG[facility]kf Blood specimen (specimen) 04/29/2018 5:40 AM EDT 04/29/2018 6:11 AM EDT Narrative Resulting Agency Comment Spec In Lab Hay Sparks MD CHEMISTRY ORDERABLES [facility] [place] [address] * (ABNORMAL) Vancomycin, trough (04/28/2018 1:09 PM EDT) Vancomycin, Trough 21.6(Crit ical) mg/L [facility] Comment: Called by: MASSIEL, Read [...] [facility]ZIP Co de Phone Number [facility] [place] [address] * EKG 12 Lead (04/28/2018 7:17 AM EDT) Ventricular rate 51 BPM MUSE SYSTEM Atrial Rate 51 BPM MUSE SYSTEM P-R Interval 162 ms MUSE SYSTEM QRS Duration 92 ms MUSE SYSTEM Q-T Interval 442 ms MUSE SYSTEM QTC Calculated (Bezet) 407 ms MUSE SYSTEM Calculated P [place] 59 degrees MUSE SYSTEM Calculated R [place] 35 degrees MUSE SYSTEM Calculated T [place] 34 degrees MUSE SYSTEM INTERPRETATION Sinus bradycardia Otherwise normal ECG When compared with ECG of 26-MAY-2017 11:16, No significant change was found Confirmed by MD Aure, Sukumar Rubi ([id number]) on 04/29/2018 1:34:03 PM MUSE SYSTEM 04/28/2018 7:17 AM EDT 04/29/2018 1:34 PM EDT Chase Olvera MD ECG ORDERABLES Performing Organization Address City/[facility]/ZIP Co de Phone Number MUSE SYSTEM * Differential, Automated (04/28/2018 4:40 AM EDT) Neutrophil % 66.6 % [facility] Neutrophil Absolute 4.11 1.70 - 6.10 x10(3)/[facility] Lymph % 23.5 % [facility] Lymphocytes Abs 1.4 0.9 - 3.2 x10(3)/[facility] Monocyte % 7.8 % [facility] Monocyte Abs 0.5 0.3 - 0.9 x10(3)/[facility] Eos % 1.5 % [facility] Eosinophils Abs 0.1 0.0 - 0.4 x10(3)/[facility] Basophil % 0.3 % [facility] Baso Absolute 0.0 0.0 - 0.1 x10(3)/[facility] Immature Gran % 0.30 % [facility] Comment: Immature granulocytes(IG's)percentage and absolute count will include metamyelocytes, myelocytes, and promyelocytes. Blood smears from CBCs yielding IG's will be scanned manually for concordance. If this scan disagrees with the automated IG or if promyelocytes are noted, a manual differential will be performed. Immature Gran Absolute 0.02 0.00 - 0.04 x10(3)/[facility] Blood specimen (specimen) 04/28/2018 4:40 AM EDT 04/28/2018 4:53 AM EDT Narrative Resulting Agency Comment Spec In Lab Apple Gutierrez MD HEMATOLOGY ORDERABLE S [facility] [place] [address] * (ABNORMAL) Hemogram (04/28/2018 4:40 AM EDT) White Blood Cell 6.2 4.0 - 9.5 x10(3)/[facility] LAB[facility] Red Blood Cell 2.54(L) 4.58 - 5.54 x10(6)/mc L [facility] Hemoglobin 7.6(L) 13.7 - 16.5 gm/dL [facility] Hematocrit 24.3(L) 40.5 - 48.5 % [facility] Mean Cell Volume 95.7(H) 82.9 - 93.1 fL [facility] Mean Cell Hemoglobin 29.9 27.5 - 32.1 pg [facility] Mean Cell Hemoglobin Concentration 31.3(L) 32.0 - 35.7 gm/dL [facility] Platelet 249 145 - 357 x10(3)/mc L [facility] RDW Standard Deviation 55.3(H) 36.0 - 45.0 fL [facility] RDW coefficient of variation 15.6(H) 11.4 - 13.8 % [facility] Mean Platelet Volume 8.7 7.6 - 12.9 fL [facility] NRBC% auto 0.0 % [facility] NRBC Absolute 0.000 0.000 - 0.000 x10(3)/mc L [facility] Blood specimen (specimen) 04/28/2018 4:40 AM EDT 04/28/2018 4:53 AM EDT Narrative Resulting Agency Comment Spec In Lab Apple Gutierrez MD HEMATOLOGY ORDERABLE S [facility] [place] [address] * (ABNORMAL) Basic Metabolic Panel (non-fasting) (04/28/2018 4:40 AM EDT) Glucose 94 65 - 199 mg/dL [facility] Comment:Diabetes: >=200 mg/d L plus symptoms Blood Urea Nitrogen 44(H) 10 - 20 mg/dL [facility] Creatinine 2.80(H) 0.80 - 1.50 mg/dL [facility] Sodium 133(L) 135 - 145 mmol/L [facility] Potassium 4.9 3.5 - 5.0 mmol/L [facility] Comment: Please note: ??Patients with WBC >100,000 may have falsely elevated Potassium levels. ??For accurate Potassium quantification in these patients send serum separator tube (gold top) for subsequent determinations. ??Contact the Clinical Chemistry Laboratory if there are any questions. Chloride 101 98 - 107 mmol/L [facility] Carbon Dioxide 20(L) 22 - 31 mmol/L [facility] Anion Gap 12 5 - 15 mmol/L [facility] Calcium 8.1(L) 8.5 - 10.5 mg/dL [facility] Est Glomerular Filtration Rate 24(L) >=60 mL/min/1. 73 m?? [facility] Comment: The eGFR was calculated using the CKD-EPI equation. As with all creatinine based estimates of kidney function, eGFR values calculated with the CKD-EPI equation are not accurate in patients with acute kidney failure, extremes of body mass or the acutely ill. [email or web address] eGFR 28(L) >=60 mL/min/1. 73 m?? [facility] Comment: The eGFR was calculated using the CKD-EPI equation. As with all creatinine based estimates of kidney function, eGFR values calculated with the CKD-EPI equation are not accurate in patients with acute kidney failure, extremes of body mass or the acutely ill. [email or web address] Blood specimen (specimen) 04/28/2018 4:40 AM EDT 04/28/2018 4:53 AM EDT Narrative Resulting Agency Comment Spec In Lab Hay Sparks MD CHEMISTRY ORDERABLES Performing Organization Address [facility] Co de Phone Number [facility] [place] [address] * Vancomycin, trough (04/27/2018 1:30 PM EDT) Vancomycin, Trough 11.1 mg/L [facility] Comment: Therapeutic range for [...] Sparks MD CHEMISTRY ORDERABLES Performing Organization Address [facility] Co de Phone Number [facility] [place] [address] * XR PICC Placement Over 5 Years [...] 4:43 AM EDT) Neutrophil % 84.4 % [facility] Neutrophil Absolute 4.96 1.70 - 6.10 x10(3)/mc L [facility] Lymph % 9.7 % [facility] Lymphocytes Abs 0.6(L) 0.9 - 3.2 x10(3)/mc L [facility] Monocyte % 5.5 % [facility] Monocyte Abs 0.3 0.3 - 0.9 x10(3)/mc L [facility] Eos % 0.0 % [facility] Eosinophils Abs 0.0 0.0 - 0.4 x10(3)/mc L [facility] Basophil % 0.2 % [facility] Baso Absolute 0.0 0.0 - 0.1 x10(3)/ L [facility] Immature Gran % 0.20 % [facility] Comment: Immature granulocytes(IG's)percentage and absolute count will include metamyelocytes, myelocytes, and promyelocytes. Blood smears from CBCs yielding IG's will be scanned manually for concordance. If this scan disagrees with the automated IG or if promyelocytes are noted, a manual differential will be performed. Immature Gran Absolute 0.01 0.00 - 0.04 x10(3)/[facility] Blood specimen (specimen) 04/27/2018 4:43 AM EDT 04/27/2018 5:16 AM EDT Narrative Resulting Agency Comment Spec In Lab Apple Gutierrez MD HEMATOLOGY ORDERABLE S Performing Organization Address City/State/[facility] Co de Phone Number [facility] [place] [address] * (ABNORMAL) Hemogram (04/27/2018 4:43 AM EDT) White Blood Cell 5.9 4.0 - 9.5 x10(3)/[facility] Red Blood Cell 2.81(L) 4.58 - 5.54 x10(6)/ L [facility] Hemoglobin 8.8(L) 13.7 - 16.5 gm/dL [facility] Hematocrit 27.0(L) 40.5 - 48.5 % [facility] Mean Cell Volume 96.1(H) 82.9 - 93.1 fL [facility] Mean Cell Hemoglobin 31.3 27.5 - 32.1 pg [facility] Mean Cell Hemoglobin Concentration 32.6 32.0 - 35.7 gm/dL [facility] Platelet 302 145 - 357 x10(3)/[facility] RDW Standard Deviation 54.9(H) 36.0 - 45.0 fL [facility] RDW coefficient of variation 15.5(H) 11.4 - 13.8 % [facility] Mean Platelet Volume 8.8 7.6 - 12.9 fL [facility] NRBC% auto 0.0 % [facility] NRBC Absolute 0.000 0.000 - 0.000 x10(3)/mc L [facility] Blood specimen (specimen) 04/27/2018 4:43 AM EDT 04/27/2018 5:16 AM EDT Narrative Resulting Agency Comment Spec In Lab Apple Gutierrez MD HEMATOLOGY ORDERABLE S [facility] [place] [address] * (ABNORMAL) Basic Metabolic Panel (non-fasting) (04/27/2018 4:43 AM EDT) Glucose 142 65 - 199 mg/dL [facility] Comment:Diabetes: >=200 mg/d L plus symptoms Blood Urea Nitrogen 41(H) 10 - 20 mg/dL [facility] Creatinine 2.81(H) 0.80 - 1.50 mg/dL [facility] Sodium 132(L) 135 - 145 mmol/L [facility] Potassium 5.6(H) 3.5 - 5.0 mmol/L [facility] Comment: Please note: ??Patients with WBC >100,000 may have falsely elevated Potassium levels. ??For accurate Potassium quantification in these patients send serum separator tube (gold top) for subsequent determinations. ??Contact the Clinical Chemistry Laboratory if there are any questions. Chloride 101 98 - 107 mmol/L [facility] Carbon Dioxide 18(L) 22 - 31 mmol/L [facility] Anion Gap 13 5 - 15 mmol/L [facility] Calcium 8.4(L) 8.5 - 10.5 mg/dL [facility] Est Glomerular Filtration Rate 24(L) >=60 mL/min/1. 73 m?? [facility] Comment: The eGFR was calculated using the CKD-EPI equation. As with all creatinine based estimates of kidney function, eGFR values calculated with the CKD-EPI equation are not accurate in patients with acute kidney failure, extremes of body mass or the acutely ill. [email or web address] eGFR 28(L) >=60 mL/min/1. 73 m?? [facility] Comment: The eGFR was calculated using the CKD-EPI equation. As with all creatinine based estimates of kidney function, eGFR values calculated with the CKD-EPI equation are not accurate in patients with acute kidney failure, extremes of body mass or the acutely ill. [email or web address] Blood specimen (specimen) 04/27/2018 4:43 AM EDT 04/27/2018 5:16 AM EDT Narrative Resulting Agency Comment Spec In Lab Hay Sparks MD CHEMISTRY ORDERABLES [facility] [place] [id number] * (ABNORMAL) Hemogram (04/26/2018 3:09 PM EDT) White Blood Cell 4.8 4.0 - 9.5 x10(3)/mc L [facility] Red Blood Cell 2.90(L) 4.58 - 5.54 x10(6)/mc L [facility] Hemoglobin 8.8(L) 13.7 - 16.5 gm/dL [facility] Hematocrit 27.5(L) 40.5 - 48.5 % [facility] Mean Cell Volume 94.8(H) 82.9 - 93.1 fL [facility] Mean Cell Hemoglobin 30.3 27.5 - 32.1 pg [facility] Mean Cell Hemoglobin Concentration 32.0 32.0 - 35.7 gm/dL [facility] Platelet 273 145 - 357 x10(3)/mc L [facility] RDW Standard Deviation 55.8(H) 36.0 - 45.0 fL [facility] RDW coefficient of variation 15.9(H) 11.4 - 13.8 % [facility] Mean Platelet Volume 9.1 7.6 - 12.9 fL [facility] NRBC% auto 0.0 % [facility] NRBC Absolute 0.000 0.000 - 0.000 x10(3)/mc L [facility] Blood specimen (specimen) 04/26/2018 3:09 PM EDT 04/26/2018 3:16 PM EDT Narrative Resulting Agency Comment Spec In Lab Chase Olvera MD HEMATOLOGY ORDERA BLES Performing Organization Address [facility] Co de Phone Number [facility] [place] [address] * Vancomycin, trough (04/26/2018 2:15 PM EDT) Vancomycin, Trough 11.8 mg/L [facility] Sparks MD CHEMISTRY ORDERABLES Performing Organization Address [facility]/ZIP Co de Phone Number [facility] [place] [address] * ABORH Recheck Status (04/26/2018 11:42 AM EDT) ABORH Type Recheck Completed [facility] Blood specimen (specimen) 04/26/2018 11:42 AM EDT 04/26/2018 11:42 AM EDT Narrative Resulting Agency Comment Spec In Lab Natalya Jacobsen MD BLOOD BANK LAB ORDER KELLY Performing Organization Address City/[facility]/ZIP Co de Phone Number [facility] [place] [address] * Antibody screen (04/26/2018 11:42 AM EDT) Pathologist [facility] Ab Screen Interp Negative [facility] Expires at [id number] on: 04/29/2018 [facility] Blood specimen (specimen) 04/26/2018 11:42 AM EDT 04/26/2018 11:42 AM EDT Narrative Resulting Agency Comment Spec In Lab Natalya Jacobsen MD BLOOD BANK LAB ORDER KELLY Performing Organization Address City/[facility]/ZIP Co de Phone Number [facility] [place] [address] * ABO/Rh Typing (04/26/2018 11:42 AM EDT) Pathologist [facility] ABORH Type A Pos [facility] Blood specimen (specimen) 04/26/2018 11:42 AM EDT 04/26/2018 11:42 AM EDT Narrative Resulting Agency Comment Spec In Lab Natalya Jacobsen MD BLOOD BANK LAB ORDER KELLY Performing Organization Address City/[facility]/ZIP Co de Phone Number [facility] [place] [address] * Differential, Automated (04/26/2018 4:39 AM EDT) Neutrophil % 55.1 % [facility] Neutrophil Absolute 2.56 1.70 - 6.10 x10(3)/[facility] Lymph % 27.7 % [facility] Lymphocytes Abs 1.3 0.9 - 3.2 x10(3)/[facility] Monocyte % 10.5 % [facility] Monocyte Abs 0.5 0.3 - 0.9 x10(3)/[facility] Eos % 5.2 % [facility] Eosinophils Abs 0.2 0.0 - 0.4 x10(3)/[facility] Basophil % 1.3 % [facility] Baso Absolute 0.1 0.0 - 0.1 x10(3)/[facility] Immature Gran % 0.20 % [facility] Comment: Immature granulocytes(IG's)percentage and absolute count will include metamyelocytes, myelocytes, and promyelocytes. Blood smears from CBCs yielding IG's will be scanned manually for concordance. If this scan disagrees with the automated IG or if promyelocytes are noted, a manual differential will be performed. Immature Gran Absolute 0.01 0.00 - 0.04 x10(3)/[facility] Blood specimen (specimen) 04/26/2018 4:39 AM EDT 04/26/2018 4:58 AM EDT Narrative Resulting Agency Comment Spec In Lab Apple Gutierrez MD HEMATOLOGY ORDERABLE S [facility] [place] [address] * (ABNORMAL) Hemogram (04/26/2018 4:39 AM EDT) White Blood Cell 4.6 4.0 - 9.5 x10(3)/mc L [facility] Red Blood Cell 2.58(L) 4.58 - 5.54 x10(6)/mc L [facility] Hemoglobin 7.9(L) 13.7 - 16.5 gm/dL [facility] Hematocrit 24.6(L) 40.5 - 48.5 % [facility] Mean Cell Volume 95.3(H) 82.9 - 93.1 fL [facility] Mean Cell Hemoglobin 30.6 27.5 - 32.1 pg [facility] Mean Cell Hemoglobin Concentration 32.1 32.0 - 35.7 gm/dL [facility] Platelet 253 145 - 357 x10(3)/mc L [facility] RDW Standard Deviation 54.4(H) 36.0 - 45.0 fL [facility] RDW coefficient of variation 15.7(H) 11.4 - 13.8 % [facility] Mean Platelet Volume 8.4 7.6 - 12.9 fL [facility] NRBC% auto 0.0 % [facility] NRBC Absolute 0.000 0.000 - 0.000 x10(3)/mc L [facility] Blood specimen (specimen) 04/26/2018 4:39 AM EDT 04/26/2018 4:58 AM EDT Narrative Resulting Agency Comment Spec In Lab Apple Gutierrez MD HEMATOLOGY ORDERABLE S [facility] [place] [address] * (ABNORMAL) Basic Metabolic Panel (non-fasting) (04/26/2018 4:39 AM EDT) Glucose 93 65 - 199 mg/dL [facility] Comment:Diabetes: >=200 mg/d L plus symptoms Blood Urea Nitrogen 37(H) 10 - 20 mg/dL [facility] Creatinine 2.80(H) 0.80 - 1.50 mg/dL [facility] Sodium 138 135 - 145 mmol/L [facility] Potassium 5.2(H) 3.5 - 5.0 mmol/L [facility] Comment: Please note: ??Patients with WBC >100,000 may have falsely elevated Potassium levels. ??For accurate Potassium quantification in these patients send serum separator tube (gold top) for subsequent determinations. ??Contact the Clinical Chemistry Laboratory if there are any questions. Chloride 106 98 - 107 mmol/L [facility] Carbon Dioxide 19(L) 22 - 31 mmol/L [facility] Anion Gap 13 5 - 15 mmol/L [facility] Calcium 8.2(L) 8.5 - 10.5 mg/dL [facility] Est Glomerular Filtration Rate 24(L) >=60 mL/min/1. 73 m?? [facility] Comment: The eGFR was calculated using the CKD-EPI equation. As with all creatinine based estimates of kidney function, eGFR values calculated with the CKD-EPI equation are not accurate in patients with acute kidney failure, extremes of body mass or the acutely ill. [email or web address] eGFR 28(L) >=60 mL/min/1. 73 m?? [facility] Comment: The eGFR was calculated using the CKD-EPI equation. As with all creatinine based estimates of kidney function, eGFR values calculated with the CKD-EPI equation are not accurate in patients with acute kidney failure, extremes of body mass or the acutely ill. [email or web address] Blood specimen (specimen) 04/26/2018 4:39 AM EDT 04/26/2018 4:58 AM EDT Narrative Resulting Agency Comment Spec In Lab Hay Sparks MD CHEMISTRY ORDERABLES [facility] [place] [address] * SCAN DOC: ECG (04/26/2018 12:00 AM EDT) Narrative 04/26/2018 12:00 AM EDT Ordered by an unspecified provider. Scanning Provider MEDIA MGR SCAN EXT O RDR/RSLT * Differential, Automated (04/25/2018 5:18 AM EDT) Neutrophil % 64.9 % [facility] Neutrophil Absolute 3.49 1.70 - 6.10 x10(3)/mcL [facility] Lymph % 20.4 % [facility] Lymphocytes Abs 1.1 0.9 - 3.2 x10(3)/[facility] Monocyte % 8.0 % [facility] Monocyte Abs 0.4 0.3 - 0.9 x10(3)/[facility] Eos % 4.8 % [facility] Eosinophils Abs 0.3 0.0 - 0.4 x10(3)/[facility] Basophil % 1.5 % [facility] Baso Absolute 0.1 0.0 - 0.1 x10(3)/[facility] Immature Gran % 0.40 % [facility] Comment: Immature granulocytes(IG's)percentage and absolute count will include metamyelocytes, myelocytes, and promyelocytes. Blood smears from CBCs yielding IG's will be scanned manually for concordance. If this scan disagrees with the automated IG or if promyelocytes are noted, a manual differential will be performed. Immature Gran Absolute 0.02 0.00 - 0.04 x10(3)/[facility] Blood specimen (specimen) 04/25/2018 5:18 AM EDT 04/25/2018 5:43 AM EDT Narrative Resulting Agency Comment Spec In Lab Apple Gutierrez MD HEMATOLOGY ORDERABLE S [facility] [place] [address] * (ABNORMAL) Hemogram (04/25/2018 5:18 AM EDT) White Blood Cell 5.4 4.0 - 9.5 x10(3)/[facility] Red Blood Cell 2.70(L) 4.58 - 5.54 x10(6)/ L [facility] Hemoglobin 8.2(L) 13.7 - 16.5 gm/dL [facility] Hematocrit 26.1(L) 40.5 - 48.5 % [facility] Mean Cell Volume 96.7(H) 82.9 - 93.1 fL [facility] Mean Cell Hemoglobin 30.4 27.5 - 32.1 pg [facility] Mean Cell Hemoglobin Concentration 31.4(L) 32.0 - 35.7 gm/dL [facility] Platelet 327 145 - 357 x10(3)/mc L [facility] RDW Standard Deviation 55.7(H) 36.0 - 45.0 fL [facility] RDW coefficient of variation 15.8(H) 11.4 - 13.8 % [facility] Mean Platelet Volume 9.1 7.6 - 12.9 [facility] NRBC% auto 0.0 % [facility] NRBC Absolute 0.000 0.000 - 0.000 x10(3)/mc L [facility] Blood specimen (specimen) 04/25/2018 5:18 AM EDT 04/25/2018 5:43 AM EDT Narrative Resulting Agency Comment Spec In Lab Apple Gutierrez MD HEMATOLOGY ORDERABLE S [facility] [place] [address] * (ABNORMAL) Basic Metabolic Panel (non-fasting) (04/25/2018 5:18 AM EDT) Glucose 97 65 - 199 mg/dL [facility] Comment:Diabetes: >=200 mg/d L plus symptoms Blood Urea Nitrogen 39(H) 10 - 20 mg/dL [facility] Creatinine 2.58(H) 0.80 - 1.50 mg/dL [facility] Sodium 138 135 - 145 mmol/L [facility] Potassium 5.2(H) 3.5 - 5.0 mmol/L [facility] Comment: Please note: ??Patients with WBC >100,000 may have falsely elevated Potassium levels. ??For accurate Potassium quantification in these patients send serum separator tube (gold top) for subsequent determinations. ??Contact the Clinical Chemistry Laboratory if there are any questions. Chloride 106 98 - 107 mmol/L [facility] Carbon Dioxide 19(L) 22 - 31 mmol/L [facility] Anion Gap 13 5 - 15 mmol/L [facility] Calcium 8.1(L) 8.5 - 10.5 mg/dL [facility] Est Glomerular Filtration Rate 27(L) >=60 mL/min/1. 73 m?? [facility] Comment: The eGFR was calculated using the CKD-EPI equation. As with all creatinine based estimates of kidney function, eGFR values calculated with the CKD-EPI equation are not accurate in patients with acute kidney failure, extremes of body mass or the acutely ill. [email or web address] eGFR 31(L) >=60 mL/min/1. 73 m?? [facility] Comment: The eGFR was calculated using the CKD-EPI equation. As with all creatinine based estimates of kidney function, eGFR values calculated with the CKD-EPI equation are not accurate in patients with acute kidney failure, extremes of body mass or the acutely ill. [email or web address] Blood specimen (specimen) 04/25/2018 5:18 AM EDT 04/25/2018 5:43 AM EDT Narrative Resulting Agency Comment Spec In Lab Hay Sparks MD CHEMISTRY ORDERABLES [facility] [place] [address] * Differential, Automated (04/24/2018 4:17 AM EDT) Neutrophil % 58.3 % [facility] Neutrophil Absolute 2.74 1.70 - 6.10 x10(3)/[facility] Lymph % 24.8 % [facility] Lymphocytes Abs 1.2 0.9 - 3.2 x10(3)/[facility] Monocyte % 9.3 % [facility] Monocyte Abs 0.4 0.3 - 0.9 x10(3)/[facility] Eos % 5.9 % [facility] Eosinophils Abs 0.3 0.0 - 0.4 x10(3)/[facility] Basophil % 1.1 % [facility] Baso Absolute 0.0 0.0 - 0.1 x10(3)/[facility] Immature Gran % 0.60 % [facility] Comment: Immature granulocytes(IG's)percentage and absolute count will include metamyelocytes, myelocytes, and promyelocytes. Blood smears from CBCs yielding IG's will be scanned manually for concordance. If this scan disagrees with the automated IG or if promyelocytes are noted, a manual differential will be performed. Immature Gran Absolute 0.03 0.00 - 0.04 x10(3)/[facility] Blood specimen (specimen) 04/24/2018 4:17 AM EDT 04/24/2018 4:40 AM EDT Narrative Resulting Agency Comment Spec In Lab Apple Gutierrez MD HEMATOLOGY ORDERABLE S [facility] [place] [address] * (ABNORMAL) Hemogram (04/24/2018 4:17 AM EDT) White Blood Cell 4.7 4.0 - 9.5 x10(3)/mc L [facility] Red Blood Cell 2.61(L) 4.58 - 5.54 x10(6)/mc L [facility] Hemoglobin 7.9(L) 13.7 - 16.5 gm/dL [facility] Hematocrit 24.6(L) 40.5 - 48.5 % [facility] Mean Cell Volume 94.3(H) 82.9 - 93.1 fL [facility] Mean Cell Hemoglobin 30.3 27.5 - 32.1 pg [facility] Mean Cell Hemoglobin Concentration 32.1 32.0 - 35.7 gm/dL [facility] Platelet 283 145 - 357 x10(3)/mc L [facility] RDW Standard Deviation 54.0(H) 36.0 - 45.0 fL [facility] RDW coefficient of variation 15.7(H) 11.4 - 13.8 % [facility] Mean Platelet Volume 8.6 7.6 - 12.9 fL [facility] NRBC% auto 0.0 % [facility] NRBC Absolute 0.000 0.000 - 0.000 x10(3)/mc L [facility] Blood specimen (specimen) 04/24/2018 4:17 AM EDT 04/24/2018 4:40 AM EDT Narrative Resulting Agency Comment Spec In Lab Apple Gutierrez MD HEMATOLOGY ORDERABLE S [facility] [place] [address] * (ABNORMAL) Basic Metabolic Panel (non-fasting) (04/24/2018 4:17 AM EDT) Glucose 93 65 - 199 mg/dL [facility] Comment:Diabetes: >=200 mg/d L plus symptoms Blood Urea Nitrogen 38(H) 10 - 20 mg/dL [facility] Creatinine 2.74(H) 0.80 - 1.50 mg/dL [facility] Sodium 138 135 - 145 mmol/L [facility] Potassium 5.2(H) 3.5 - 5.0 mmol/L [facility] Comment: Please note: ??Patients with WBC >100,000 may have falsely elevated Potassium levels. ??For accurate Potassium quantification in these patients send serum separator tube (gold top) for subsequent determinations. ??Contact the Clinical Chemistry Laboratory if there are any questions. Chloride 108(H) 98 - 107 mmol/L [facility] Carbon Dioxide 20(L) 22 - 31 mmol/L [facility] Anion Gap 10 5 - 15 mmol/L [facility] Calcium 8.0(L) 8.5 - 10.5 mg/dL [facility] Est Glomerular Filtration Rate 25(L) >=60 mL/min/1. 73 m?? [facility] Comment: The eGFR was calculated using the CKD-EPI equation. As with all creatinine based estimates of kidney function, eGFR values calculated with the CKD-EPI equation are not accurate in patients with acute kidney failure, extremes of body mass or the acutely ill. [email or web address] eGFR 29(L) >=60 mL/min/1. 73 m?? [facility] Comment: The eGFR was calculated using the CKD-EPI equation. As with all creatinine based estimates of kidney function, eGFR values calculated with the CKD-EPI equation are not accurate in patients with acute kidney failure, extremes of body mass or the acutely ill. [email or web address] Blood specimen (specimen) 04/24/2018 4:17 AM EDT 04/24/2018 4:40 AM EDT Narrative Resulting Agency Comment Spec In Lab Hay Sparks MD CHEMISTRY ORDERABLES [facility] [place] [place] [address] * Differential, Automated (04/23/2018 4:56 AM EDT) Neutrophil % 61.5 % [facility] Neutrophil Absolute 3.19 1.70 - 6.10 x10(3)/[facility] Lymph % 22.2 % [facility] Lymphocytes Abs 1.2 0.9 - 3.2 x10(3)/[facility] Monocyte % 9.5 % [facility] Monocyte Abs 0.5 0.3 - 0.9 x10(3)/[facility] Eos % 5.6 % [facility] Eosinophils Abs 0.3 0.0 - 0.4 x10(3)/[facility] Basophil % 0.8 % [facility] Baso Absolute 0.0 0.0 - 0.1 x10(3)/[facility] Immature Gran % 0.40 % [facility] Comment: Immature granulocytes(IG's)percentage and absolute count will include metamyelocytes, myelocytes, and promyelocytes. Blood smears from CBCs yielding IG's will be scanned manually for concordance. If this scan disagrees with the automated IG or if promyelocytes are noted, a manual differential will be performed. Immature Gran Absolute 0.02 0.00 - 0.04 x10(3)/[facility] Blood specimen (specimen) 04/23/2018 4:56 AM EDT 04/23/2018 5:25 AM EDT Narrative Resulting Agency Comment Spec In Lab Apple Gutierrez MD HEMATOLOGY ORDERABLE S [facility] [place] [place] [address] * (ABNORMAL) Hemogram (04/23/2018 4:56 AM EDT) White Blood Cell 5.2 4.0 - 9.5 x10(3)/mc L [facility] Red Blood Cell 2.60(L) 4.58 - 5.54 x10(6)/mc L [facility] Hemoglobin 8.0(L) 13.7 - 16.5 gm/dL [facility] Hematocrit 24.3(L) 40.5 - 48.5 % [facility] Mean Cell Volume 93.5(H) 82.9 - 93.1 fL [facility] Mean Cell Hemoglobin 30.8 27.5 - 32.1 pg [facility] Mean Cell Hemoglobin Concentration 32.9 32.0 - 35.7 gm/dL [facility] Platelet 317 145 - 357 x10(3)/mc L [facility] RDW Standard Deviation 54.2(H) 36.0 - 45.0 fL [facility] RDW coefficient of variation 15.9(H) 11.4 - 13.8 % [facility] Mean Platelet Volume 8.5 7.6 - 12.9 fL [facility] NRBC% auto 0.0 % [facility] NRBC Absolute 0.000 0.000 - 0.000 x10(3)/mc L [facility] Blood specimen (specimen) 04/23/2018 4:56 AM EDT 04/23/2018 5:25 AM EDT Narrative Resulting Agency Comment Spec In Lab Apple Gutierrez MD HEMATOLOGY ORDERABLE S [facility] [place] [address] * (ABNORMAL) Basic Metabolic Panel (non-fasting) (04/23/2018 4:56 AM EDT) Glucose 96 65 - 199 mg/dL [facility] Comment:Diabetes: >=200 mg/d L plus symptoms Blood Urea Nitrogen 36(H) 10 - 20 mg/dL [facility] Creatinine 2.49(H) 0.80 - 1.50 mg/dL [facility] Sodium 137 135 - 145 mmol/L [facility] Potassium 4.9 3.5 - 5.0 mmol/L [facility] Comment: Please note: ??Patients with WBC >100,000 may have falsely elevated Potassium levels. ??For accurate Potassium quantification in these patients send serum separator tube (gold top) for subsequent determinations. ??Contact the Clinical Chemistry Laboratory if there are any questions. Chloride 103 98 - 107 mmol/L [facility] Carbon Dioxide 20(L) 22 - 31 mmol/L [facility] Anion Gap 14 5 - 15 mmol/L [facility] Calcium 8.1(L) 8.5 - 10.5 mg/dL [facility] Est Glomerular Filtration Rate 28(L) >=60 mL/min/1. 73 m?? [facility] Comment: The eGFR was calculated using the CKD-EPI equation. As with all creatinine based estimates of kidney function, eGFR values calculated with the CKD-EPI equation are not accurate in patients with acute kidney failure, extremes of body mass or the acutely ill. [email or web address] eGFR 32(L) >=60 mL/min/1. 73 m?? [facility] Comment: The eGFR was calculated using the CKD-EPI equation. As with all creatinine based estimates of kidney function, eGFR values calculated with the CKD-EPI equation are not accurate in patients with acute kidney failure, extremes of body mass or the acutely ill. [email or web address] Blood specimen (specimen) 04/23/2018 4:56 AM EDT 04/23/2018 5:25 AM EDT Narrative Resulting Agency Comment Spec In Lab Hay Sparks MD CHEMISTRY ORDERABLES [facility] [place] [address] * Differential, Automated (04/22/2018 5:34 AM EDT) Neutrophil % 67.1 % [facility] Neutrophil Absolute 3.67 1.70 - 6.10 x10(3)/[facility] Lymph % 17.3 % [facility] Lymphocytes Abs 1.0 0.9 - 3.2 x10(3)/[facility] Monocyte % 10.0 % [facility] Monocyte Abs 0.6 0.3 - 0.9 x10(3)/[facility] Eos % 4.7 % [facility] Eosinophils Abs 0.3 0.0 - 0.4 x10(3)/[facility] Basophil % 0.7 % [facility] Baso Absolute 0.0 0.0 - 0.1 x10(3)/[facility] Immature Gran % 0.20 % [facility] Comment: Immature granulocytes(IG's)percentage and absolute count will include metamyelocytes, myelocytes, and promyelocytes. Blood smears from CBCs yielding IG's will be scanned manually for concordance. If this scan disagrees with the automated IG or if promyelocytes are noted, a manual differential will be performed. Immature Gran Absolute 0.01 0.00 - 0.04 x10(3)/[facility] Blood specimen (specimen) 04/22/2018 5:34 AM EDT 04/22/2018 5:51 AM EDT Narrative Resulting Agency Comment Spec In Lab Apple Gutierrez MD HEMATOLOGY ORDERABLE S Performing Organization Address City/State/[facility] Co de Phone Number [facility] [place] [address] * (ABNORMAL) Hemogram (04/22/2018 5:34 AM EDT) White Blood Cell 5.5 4.0 - 9.5 x10(3)/[facility] Red Blood Cell 2.62(L) 4.58 - 5.54 x10(6)/ L [facility] Hemoglobin 8.0(L) 13.7 - 16.5 gm/dL [facility] Hematocrit 24.8(L) 40.5 - 48.5 % [facility] Mean Cell Volume 94.7(H) 82.9 - 93.1 fL [facility] Mean Cell Hemoglobin 30.5 27.5 - 32.1 pg [facility] Mean Cell Hemoglobin Concentration 32.3 32.0 - 35.7 gm/dL [facility] Platelet 289 145 - 357 x10(3)/[facility] RDW Standard Deviation 56.7(H) 36.0 - 45.0 fL [facility] RDW coefficient of variation 16.2(H) 11.4 - 13.8 % [facility] Mean Platelet Volume 8.6 7.6 - 12.9 fL [facility] NRBC% auto 0.0 % [facility] NRBC Absolute 0.000 0.000 - 0.000 x10(3)/mc L [facility] Blood specimen (specimen) 04/22/2018 5:34 AM EDT 04/22/2018 5:51 AM EDT Narrative Resulting Agency Comment Spec In Lab Apple Gutierrez MD HEMATOLOGY ORDERABLE S [facility] [place] [address] * (ABNORMAL) Basic Metabolic Panel (non-fasting) (04/22/2018 5:34 AM EDT) Glucose 100 65 - 199 mg/dL [facility] Comment:Diabetes: >=200 mg/d L plus symptoms Blood Urea Nitrogen 38(H) 10 - 20 mg/dL [facility] Creatinine 2.30(H) 0.80 - 1.50 mg/dL [facility] Sodium 138 135 - 145 mmol/L [facility] Potassium 5.3(H) 3.5 - 5.0 mmol/L [facility] Comment: Please note: ??Patients with WBC >100,000 may have falsely elevated Potassium levels. ??For accurate Potassium quantification in these patients send serum separator tube (gold top) for subsequent determinations. ??Contact the Clinical Chemistry Laboratory if there are any questions. Chloride 106 98 - 107 mmol/L [facility] Carbon Dioxide 19(L) 22 - 31 mmol/L [facility] Anion Gap 13 5 - 15 mmol/L [facility] Calcium 8.0(L) 8.5 - 10.5 mg/dL [facility] Est Glomerular Filtration Rate 31(L) >=60 mL/min/1. 73 m?? [facility] Comment: The eGFR was calculated using the CKD-EPI equation. As with all creatinine based estimates of kidney function, eGFR values calculated with the CKD-EPI equation are not accurate in patients with acute kidney failure, extremes of body mass or the acutely ill. [email or web address] eGFR 35(L) >=60 mL/min/1. 73 m?? [facility] Comment: The eGFR was calculated using the CKD-EPI equation. As with all creatinine based estimates of kidney function, eGFR values calculated with the CKD-EPI equation are not accurate in patients with acute kidney failure, extremes of body mass or the acutely ill. [email or web address] Blood specimen (specimen) 04/22/2018 5:34 AM EDT 04/22/2018 5:51 AM EDT Narrative Resulting Agency Comment Spec In Lab Hay Sparks MD CHEMISTRY ORDERABLES [facility] [place] [address] * Blood culture (04/21/2018 6:05 AM EDT) Blood Culture No growth at 5 days. [facility] Blood specimen (specimen) STRUCTURE OF RIGHT HAND / Unknown 04/21/2018 6:05 AM EDT 04/21/2018 8:01 AM EDT Narrative Resulting Agency Comment Spec In Lab Chase Olvera MD MICROBIOLOGY - BL OOD ORDERABLES [facility] [place] [address] * Blood culture (04/21/2018 5:50 AM EDT) Blood Culture No growth at 5 days. [facility] Blood specimen (specimen) ANTECUBITAL REGION STRUCTURE / Unknown 04/21/2018 5:50 AM EDT 04/21/2018 7:59 AM EDT Narrative Resulting Agency Comment Spec In Lab Chase Olvera MD MICROBIOLOGY - BL OOD ORDERABLES Performing Organization Address City/[facility]/[place] [address] * Differential, Automated (04/21/2018 5:50 AM EDT) Neutrophil % 66.9 % [facility] Neutrophil Absolute 3.88 1.70 - 6.10 x10(3)/[facility] Lymph % 16.8 % [facility] Lymphocytes Abs 1.0 0.9 - 3.2 x10(3)/[facility] Monocyte % 8.8 % [facility] Monocyte Abs 0.5 0.3 - 0.9 x10(3)/[facility] Eos % 5.9 % [facility] Eosinophils Abs 0.3 0.0 - 0.4 x10(3)/[facility] Basophil % 0.9 % [facility] Baso Absolute 0.0 0.0 - 0.1 x10(3)/[facility] Immature Gran % 0.70 % [facility] Comment: Immature granulocytes(IG's)percentage and absolute count will include metamyelocytes, myelocytes, and promyelocytes. Blood smears from CBCs yielding IG's will be scanned manually for concordance. If this scan disagrees with the automated IG or if promyelocytes are noted, a manual differential will be performed. Immature Gran Absolute 0.04 0.00 - 0.04 x10(3)/[facility] Blood specimen (specimen) 04/21/2018 5:50 AM EDT 04/21/2018 6:29 AM EDT Narrative Resulting Agency Comment Spec In Lab Apple Gutierrez MD HEMATOLOGY ORDERABLE S Performing Organization Address City/[facility]/ZIP Co de Phone Number [facility] [place] [address] * (ABNORMAL) Hemogram (04/21/2018 5:50 AM EDT) [facility] White Blood Cell 5.8 4.0 - 9.5 x10(3)/[facility] Red Blood Cell 2.55(L) 4.58 - 5.54 x10(6)/[facility] Hemoglobin 7.7(L) 13.7 - 16.5 gm/dL [facility] Hematocrit 24.2(L) 40.5 - 48.5 % [facility] Mean Cell Volume 94.9(H) 82.9 - 93.1 [facility] Mean Cell Hemoglobin 30.2 27.5 - 32.1 pg [facility] Mean Cell Hemoglobin Concentration 31.8(L) 32.0 - 35.7 gm/dL [facility] Platelet 316 145 - 357 x10(3)/[facility] RDW Standard Deviation 56.2(H) 36.0 - 45.0 [facility] RDW coefficient of variation 16.0(H) 11.4 - 13.8 % [facility] Mean Platelet Volume 8.2 7.6 - 12.9 [facility] NRBC% auto 0.0 % [facility] NRBC Absolute 0.000 0.000 - 0.000 x10(3)/[facility] Blood specimen (specimen) 04/21/2018 5:50 AM EDT 04/21/2018 6:29 AM EDT Narrative Resulting Agency Comment Spec In Lab Apple Gutierrez MD HEMATOLOGY ORDERABLE S [facility] [place] [address] * (ABNORMAL) Basic Metabolic Panel (non-fasting) (04/21/2018 5:50 AM EDT) Glucose 97 65 - 199 mg/dL [facility] Comment:Diabetes: >=200 mg/d L plus symptoms Blood Urea Nitrogen 34(H) 10 - 20 mg/dL [facility] Creatinine 2.30(H) 0.80 - 1.50 mg/dL [facility] Sodium 138 135 - 145 mmol/L [facility] Potassium 4.8 3.5 - 5.0 mmol/L [facility] Comment: Please note: ??Patients with WBC >100,000 may have falsely elevated Potassium levels. ??For accurate Potassium quantification in these patients send serum separator tube (gold top) for subsequent determinations. ??Contact the Clinical Chemistry Laboratory if there are any questions. Chloride 105 98 - 107 mmol/L [facility] Carbon Dioxide 21(L) 22 - 31 mmol/L [facility] Anion Gap 12 5 - 15 mmol/L [facility] Calcium 8.1(L) 8.5 - 10.5 mg/dL [facility] Est Glomerular Filtration Rate 31(L) >=60 mL/min/1. 73 m?? [facility] Comment: The eGFR was calculated using the CKD-EPI equation. As with all creatinine based estimates of kidney function, eGFR values calculated with the CKD-EPI equation are not accurate in patients with acute kidney failure, extremes of body mass or the acutely ill. [email or web address] eGFR 35(L) >=60 mL/min/1. 73 m?? [facility] Comment: The eGFR was calculated using the CKD-EPI equation. As with all creatinine based estimates of kidney function, eGFR values calculated with the CKD-EPI equation are not accurate in patients with acute kidney failure, extremes of body mass or the acutely ill. [email or web address] Blood specimen (specimen) 04/21/2018 5:50 AM EDT 04/21/2018 6:29 AM EDT Narrative Resulting Agency Comment Spec In Lab Hay Sparks MD CHEMISTRY ORDERABLES [facility] [place] [address] * Differential, Automated (04/20/2018 5:48 AM EDT) Pathologist [facility] Neutrophil % 74.0 % [facility] Neutrophil Absolute 5.39 1.70 - 6.10 x10(3)/[facility] Lymph % 12.8 % [facility] Lymphocytes Abs 0.9 0.9 - 3.2 x10(3)/[facility] Monocyte % 8.2 % [facility] Monocyte Abs 0.6 0.3 - 0.9 x10(3)/[facility] Eos % 4.0 % [facility] Eosinophils Abs 0.3 0.0 - 0.4 x10(3)/[facility] Basophil % 0.5 % [facility] Baso Absolute 0.0 0.0 - 0.1 x10(3)/[facility] Immature Gran % 0.50 % [facility] Comment: Immature granulocytes(IG's)percentage and absolute count will include metamyelocytes, myelocytes, and promyelocytes. Blood smears from CBCs yielding IG's will be scanned manually for concordance. If this scan disagrees with the automated IG or if promyelocytes are noted, a manual differential will be performed. Immature Gran Absolute 0.04 0.00 - 0.04 x10(3)/[facility] Blood specimen (specimen) 04/20/2018 5:48 AM EDT 04/20/2018 6:06 AM EDT Narrative Resulting Agency Comment Spec In Lab Apple Gutierrez MD HEMATOLOGY ORDERABLE S [facility] [place] [address] * (ABNORMAL) Hemogram (04/20/2018 5:48 AM EDT) [facility] White Blood Cell 7.3 4.0 - 9.5 x10(3)/mc L [facility] Red Blood Cell 2.53(L) 4.58 - 5.54 x10(6)/mc L [facility] Hemoglobin 7.8(L) 13.7 - 16.5 gm/dL [facility] Hematocrit 23.7(L) 40.5 - 48.5 % [facility] Mean Cell Volume 93.7(H) 82.9 - 93.1 fL [facility] Mean Cell Hemoglobin 30.8 27.5 - 32.1 pg [facility] Mean Cell Hemoglobin Concentration 32.9 32.0 - 35.7 gm/dL [facility] Platelet 302 145 - 357 x10(3)/[facility] RDW Standard Deviation 54.4(H) 36.0 - 45.0 [facility] RDW coefficient of variation 15.9(H) 11.4 - 13.8 % [facility] Mean Platelet Volume 8.5 7.6 - 12.9 [facility] NRBC% auto 0.0 % [facility] NRBC Absolute 0.000 0.000 - 0.000 x10(3)/[facility] Blood specimen (specimen) 04/20/2018 5:48 AM EDT 04/20/2018 6:06 AM EDT Narrative Resulting Agency Comment Spec In Lab Apple Gutierrez MD HEMATOLOGY ORDERABLE S [facility] [place] [address] * APTT (04/20/2018 5:48 AM EDT) Partial Thromboplastin Time 27 25 - 37 sec [facility] Comment: The PTT is NOT appropriate for heparin monitoring. Use the Anti-Xa level for heparin monitoring (HEP UFH) or LMWH monitoring (HEP LMW). A PTT less than 37 seconds generally indicates adequate hemostasis. Blood specimen (specimen) 04/20/2018 5:48 AM EDT 04/20/2018 6:06 AM EDT Narrative Resulting Agency Comment Spec In Lab Chase Olvera MD HEMATOLOGY ORDERA BLES Performing Organization Address [facility] de Phone Number [facility] [place] [address] * Prothrombin Time (04/20/2018 5:48 AM EDT) Prothrombin Time 11.6 9.4 - 12.5 sec [facility] International Normalization Ratio 1.0 [facility] Comment: An INR <2.0 indicates [...] HEMATOLOGY ORDERA BLES Performing Organization Address [facility] de Phone Number [facility] [place] [address] * (ABNORMAL) Basic Metabolic Panel (non-fasting) (04/20/2018 5:48 AM EDT) Glucose 103 65 - 199 mg/dL [facility] Comment:Diabetes: >=200 mg/d L plus symptoms Blood Urea Nitrogen 33(H) 10 - 20 mg/dL [facility] Creatinine 2.38(H) 0.80 - 1.50 mg/dL [facility] Sodium 138 135 - 145 mmol/L [facility] Potassium 4.7 3.5 - 5.0 mmol/L [facility] Comment: Please note: ??Patients with WBC >100,000 may have falsely elevated Potassium levels. ??For accurate Potassium quantification in these patients send serum separator tube (gold top) for subsequent determinations. ??Contact the Clinical Chemistry Laboratory if there are any questions. Chloride 104 98 - 107 mmol/L [facility] Carbon Dioxide 21(L) 22 - 31 mmol/L [facility] Anion Gap 13 5 - 15 mmol/L [facility] Calcium 8.0(L) 8.5 - 10.5 mg/dL [facility] Est Glomerular Filtration Rate 29(L) >=60 mL/min/1. 73 m?? [facility] Comment: The eGFR was calculated using the CKD-EPI equation. As with all creatinine based estimates of kidney function, eGFR values calculated with the CKD-EPI equation are not accurate in patients with acute kidney failure, extremes of body mass or the acutely ill. [email or web address] eGFR 34(L) >=60 mL/min/1. 73 m?? [facility] Comment: The eGFR was calculated using the CKD-EPI equation. As with all creatinine based estimates of kidney function, eGFR values calculated with the CKD-EPI equation are not accurate in patients with acute kidney failure, extremes of body mass or the acutely ill. [email or web address] Blood specimen (specimen) 04/20/2018 5:48 AM EDT 04/20/2018 6:06 AM EDT Narrative Resulting Agency Comment Spec In Lab Hay Sparks MD CHEMISTRY ORDERABLES [facility] [place] [address] * Anaerobic Culture (04/19/2018 9:25 AM EDT) Anaerobic Culture No anaerobic organisms isolated [facility] Skin (tissue) specimen (specimen) 04/19/2018 9:25 AM EDT 04/19/2018 9:37 AM EDT Comment:LEFT ARM SNUFFBOX PS EUDOANEURYSM FOR AEROBIC, ANAEROBIC, GRAM STAIN Narrative Resulting Agency Comment Spec In Lab Odalis Elias MD MICROBIOLOGY - GENERAL ORDERABLES Performing Organization Address City/[facility]/ZIP Co de Phone Number [facility] [place] [address] * (ABNORMAL) Tissue culture (04/19/2018 9:25 AM EDT) Pathologist [facility] Tissue Culture Rare Corynebacterium species : possible contaminant(A) [facility] Gram Stain Many Neutrophils seen Rare Gram Negative Rods seen (A) [facility] Organism Gram Negative Rods(A) [facility] Skin (tissue) specimen (specimen) 04/19/2018 9:25 AM EDT 04/19/2018 9:37 AM EDT Comment:LEFT ARM SNUFFBOX PS EUDOANEURYSM FOR AEROBIC, ANAEROBIC, GRAM STAIN Narrative Resulting Agency Comment Spec In Lab Odalis Elias MD MICROBIOLOGY - GENERAL ORDERABLES Performing Organization Address City/[facility] Co de Phone Number [facility] [place] [place] [address] * Differential, Automated (04/19/2018 6:25 AM EDT) Neutrophil % 68.5 % [facility] Neutrophil Absolute 3.75 1.70 - 6.10 x10(3)/[facility] Lymph % 17.3 % [facility] Lymphocytes Abs 1.0 0.9 - 3.2 x10(3)/[facility] Monocyte % 9.3 % [facility] Monocyte Abs 0.5 0.3 - 0.9 x10(3)/[facility] Eos % 4.0 % [facility] Eosinophils Abs 0.2 0.0 - 0.4 x10(3)/[facility] LABORATORY Basophil % 0.7 % [facility] Baso Absolute 0.0 0.0 - 0.1 x10(3)/[facility] LABORATORY Immature Gran % 0.20 % [facility] Comment: Immature granulocytes(IG's)percentage and absolute count will include metamyelocytes, myelocytes, and promyelocytes. Blood smears from CBCs yielding IG's will be scanned manually for concordance. If this scan disagrees with the automated IG or if promyelocytes are noted, a manual differential will be performed. Immature Gran Absolute 0.01 0.00 - 0.04 x10(3)/[facility] LABORATORY Blood specimen (specimen) 04/19/2018 6:25 AM EDT 04/19/2018 6:32 AM EDT Narrative Resulting Agency Comment Spec In Lab Apple Gutierrez MD HEMATOLOGY ORDERABLE S [facility] [place] [address] * (ABNORMAL) Hemogram (04/19/2018 6:25 AM EDT) White Blood Cell 5.5 4.0 - 9.5 x10(3)/[facility] LABORATORY Red Blood Cell 2.52(L) 4.58 - 5.54 x10(6)/mc L [facility] Hemoglobin 7.7(L) 13.7 - 16.5 gm/dL [facility] Hematocrit 23.3(L) 40.5 - 48.5 % [facility] Mean Cell Volume 92.5 82.9 - 93.1 fL [facility] Mean Cell Hemoglobin 30.6 27.5 - 32.1 pg [facility] Mean Cell Hemoglobin Concentration 33.0 32.0 - 35.7 gm/dL [facility] Platelet 274 145 - 357 x10(3)/ L [facility] RDW Standard Deviation 53.1(H) 36.0 - 45.0 fL [facility] RDW coefficient of variation 15.6(H) 11.4 - 13.8 % [facility] Mean Platelet Volume 8.3 7.6 - 12.9 fL [facility] NRBC% auto 0.0 % [facility] NRBC Absolute 0.000 0.000 - 0.000 x10(3)/mc L [facility] Blood specimen (specimen) 04/19/2018 6:25 AM EDT 04/19/2018 6:32 AM EDT Narrative Resulting Agency Comment Spec In Lab Apple Gutierrez MD HEMATOLOGY ORDERABLE S Performing Organization Address [facility] Co de Phone Number [facility] [place] [address] * APTT (04/19/2018 6:25 AM EDT) Partial Thromboplastin Time 27 25 - 37 sec [facility] Comment: The PTT is NOT appropriate for heparin monitoring. Use the Anti-Xa level for heparin monitoring (HEP UFH) or LMWH monitoring (HEP LMW). A PTT less than 37 seconds generally indicates adequate hemostasis. Blood specimen (specimen) 04/19/2018 6:25 AM EDT 04/19/2018 6:32 AM EDT Narrative Resulting Agency Comment Spec In Lab Chase Olvera MD HEMATOLOGY ORDERA BLES Performing Organization Address [facility] Co de Phone Number [facility] [place] [address] * Prothrombin Time (04/19/2018 6:25 AM EDT) Prothrombin Time 11.5 9.4 - 12.5 sec [facility] International Normalization Ratio 1.0 [facility] Comment: An INR <2.0 indicates [...] Lab Chase Olvera MD HEMATOLOGY ORDERA BLES [facility] [place] [address] * (ABNORMAL) Basic Metabolic Panel (non-fasting) (04/19/2018 6:25 AM EDT) Glucose 100 65 - 199 mg/dL [facility] Comment:Diabetes: >=200 mg/d L plus symptoms Blood Urea Nitrogen 35(H) 10 - 20 mg/dL [facility] Creatinine 2.12(H) 0.80 - 1.50 mg/dL [facility] Sodium 137 135 - 145 mmol/L [facility] Potassium 4.7 3.5 - 5.0 mmol/L [facility] Comment: Please note: ??Patients with WBC >100,000 may have falsely elevated Potassium levels. ??For accurate Potassium quantification in these patients send serum separator tube (gold top) for subsequent determinations. ??Contact the Clinical Chemistry Laboratory if there are any questions. Chloride 104 98 - 107 mmol/L [facility] Carbon Dioxide 21(L) 22 - 31 mmol/L [facility] Anion Gap 12 5 - 15 mmol/L [facility] Calcium 8.0(L) 8.5 - 10.5 mg/dL [facility] Est Glomerular Filtration Rate 34(L) >=60 mL/min/1. 73 m?? [facility] Comment: The eGFR was calculated using the CKD-EPI equation. As with all creatinine based estimates of kidney function, eGFR values calculated with the CKD-EPI equation are not accurate in patients with acute kidney failure, extremes of body mass or the acutely ill. [email or web address] eGFR 39(L) >=60 mL/min/1. 73 m?? [facility] Comment: The eGFR was calculated using the CKD-EPI equation. As with all creatinine based estimates of kidney function, eGFR values calculated with the CKD-EPI equation are not accurate in patients with acute kidney failure, extremes of body mass or the acutely ill. [email or web address] Blood specimen (specimen) 04/19/2018 6:25 AM EDT 04/19/2018 6:32 AM EDT Narrative Resulting Agency Comment Spec In Lab Hay Sparks MD CHEMISTRY ORDERABLES Performing Organization Address [facility] de Phone Number [facility] [place] [address] * Tacrolimus level (04/19/2018 6:25 AM EDT) Tacrolimus 2.8 ng/mL [facility] Comment: Trough therapeutic: ??5-15 ng/mL Performed by ultra-performance liquid chromatography tandem mass spectrometry (UPLCMS/MS). This test was developed and its performance characteristics determined by [facility]. It has not been cleared [...] CHEMISTRY ORDERAB LES Performing Organization Address [facility] Co de Phone Number [facility] [place] [address] * AVF/Established Access Evaluation (04/18/2018 1:29 PM EDT) VB Text Report Department: Vascular Surgery Lab Patient: [id number] (CHRISTY AMBROSE) CPT: 68970 ICD10: N18.6;R57.8 Referring Physician: CHASE OLVERA ?? [...] 5:26 AM EDT) Neutrophil % 67.3 % [facility] LABORATORY Neutrophil Absolute 4.29 1.70 - 6.10 x10(3)/[facility] LABORATORY Lymph % 19.6 % [facility] Lymphocytes Abs 1.2 0.9 - 3.2 x10(3)/[facility] LABORATORY Monocyte % 8.2 % [facility] Monocyte Abs 0.5 0.3 - 0.9 x10(3)/[facility] LABORATORY Eos % 3.9 % [facility] Eosinophils Abs 0.2 0.0 - 0.4 x10(3)/[facility] LABORATORY Basophil % 0.5 % [facility] Baso Absolute 0.0 0.0 - 0.1 x10(3)/[facility] LABORATORY Immature Gran % 0.50 % [facility] Comment: Immature granulocytes(IG's)percentage and absolute count will include metamyelocytes, myelocytes, and promyelocytes. Blood smears from CBCs yielding IG's will be scanned manually for concordance. If this scan disagrees with the automated IG or if promyelocytes are noted, a manual differential will be performed. Immature Gran Absolute 0.03 0.00 - 0.04 x10(3)/[facility] LABORATORY Blood specimen (specimen) 04/18/2018 5:26 AM EDT 04/18/2018 5:39 AM EDT Narrative Resulting Agency Comment Spec In Lab Apple Gutierrez MD HEMATOLOGY ORDERABLE S [facility] [place] [address] * (ABNORMAL) Hemogram (04/18/2018 5:26 AM EDT) White Blood Cell 6.4 4.0 - 9.5 x10(3)/mc L [facility] Red Blood Cell 2.65(L) 4.58 - 5.54 x10(6)/mc L [facility] Hemoglobin 8.0(L) 13.7 - 16.5 gm/dL [facility] Hematocrit 24.6(L) 40.5 - 48.5 % [facility] Mean Cell Volume 92.8 82.9 - 93.1 fL [facility] Mean Cell Hemoglobin 30.2 27.5 - 32.1 pg [facility] Mean Cell Hemoglobin Concentration 32.5 32.0 - 35.7 gm/dL [facility] Platelet 305 145 - 357 x10(3)/mc L [facility] RDW Standard Deviation 53.2(H) 36.0 - 45.0 fL [facility] RDW coefficient of variation 15.7(H) 11.4 - 13.8 % [facility] Mean Platelet Volume 8.3 7.6 - 12.9 [facility] LABORATORY NRBC% auto 0.0 % [facility] NRBC Absolute 0.000 0.000 - 0.000 x10(3)/mc L [facility] Blood specimen (specimen) 04/18/2018 5:26 AM EDT 04/18/2018 5:39 AM EDT Narrative Resulting Agency Comment Spec In Lab Apple Gutierrez MD HEMATOLOGY ORDERABLE S Performing Organization Address [facility] Co de Phone Number [facility] [place] [address] * APTT (04/18/2018 5:26 AM EDT) Partial Thromboplastin Time 27 25 - 37 sec [facility] Comment: The PTT is NOT appropriate for heparin monitoring. Use the Anti-Xa level for heparin monitoring (HEP UFH) or LMWH monitoring (HEP LMW). A PTT less than 37 seconds generally indicates adequate hemostasis. Blood specimen (specimen) 04/18/2018 5:26 AM EDT 04/18/2018 5:39 AM EDT Narrative Resulting Agency Comment Spec In Lab Chase Olvera MD HEMATOLOGY ORDERA BLES Performing Organization Address [facility]/ZIP Co de Phone Number [facility] [place] [address] * Prothrombin Time (04/18/2018 5:26 AM EDT) Prothrombin Time 11.2 9.4 - 12.5 sec [facility] International Normalization Ratio 1.0 [facility] Comment: An INR <2.0 indicates [...] Lab Chase Olvera MD HEMATOLOGY ORDERA BLES [facility] [place] [address] * (ABNORMAL) Basic Metabolic Panel (non-fasting) (04/18/2018 5:26 AM EDT) Glucose 103 65 - 199 mg/dL [facility] Comment:Diabetes: >=200 mg/d L plus symptoms Blood Urea Nitrogen 36(H) 10 - 20 mg/dL [facility] Creatinine 2.30(H) 0.80 - 1.50 mg/dL [facility] Sodium 135 135 - 145 mmol/L [facility] Potassium 4.3 3.5 - 5.0 mmol/L [facility] Comment: Please note: ??Patients with WBC >100,000 may have falsely elevated Potassium levels. ??For accurate Potassium quantification in these patients send serum separator tube (gold top) for subsequent determinations. ??Contact the Clinical Chemistry Laboratory if there are any questions. Chloride 104 98 - 107 mmol/L [facility] Carbon Dioxide 20(L) 22 - 31 mmol/L [facility] Anion Gap 11 5 - 15 mmol/L [facility] Calcium 8.3(L) 8.5 - 10.5 mg/dL [facility] Est Glomerular Filtration Rate 31(L) >=60 mL/min/1. 73 m?? [facility] Comment: The eGFR was calculated using the CKD-EPI equation. As with all creatinine based estimates of kidney function, eGFR values calculated with the CKD-EPI equation are not accurate in patients with acute kidney failure, extremes of body mass or the acutely ill. [email or web address] eGFR 35(L) >=60 mL/min/1. 73 m?? [facility] Comment: The eGFR was calculated using the CKD-EPI equation. As with all creatinine based estimates of kidney function, eGFR values calculated with the CKD-EPI equation are not accurate in patients with acute kidney failure, extremes of body mass or the acutely ill. [email or web address] Blood specimen (specimen) 04/18/2018 5:26 AM EDT 04/18/2018 5:39 AM EDT Narrative Resulting Agency Comment Spec In Lab Hay Sparks MD CHEMISTRY ORDERABLES Performing Organization Address [facility] Co de Phone Number [facility] [place] [address] * ABORH Recheck Status (04/17/2018 9:07 AM EDT) ABORH Type Recheck Completed [facility] Blood specimen (specimen) 04/17/2018 9:07 AM EDT 04/17/2018 9:22 AM EDT Narrative Resulting Agency Comment Spec In Lab Tim Ogden MD BLOOD BANK LAB ORDE ABDIAS Performing Organization Address [facility] Co de Phone Number [facility] [place] [address] * Antibody screen (04/17/2018 9:07 AM EDT) Ab Screen Interp Negative [facility] Expires at [id number] on: 04/20/2018 [facility] Blood specimen (specimen) 04/17/2018 9:07 AM EDT 04/17/2018 9:22 AM EDT Narrative Resulting Agency Comment Spec In Lab Tim Ogden MD BLOOD BANK LAB ORDE ABDIAS [facility] [place] [address] * ABO/Rh Typing (04/17/2018 9:07 AM EDT) Pathologist [facility] ABORH Type A Pos [facility] Blood specimen (specimen) 04/17/2018 9:07 AM EDT 04/17/2018 9:22 AM EDT Narrative Resulting Agency Comment Spec In Lab Tim Ogden MD BLOOD BANK LAB RYAN CALERO Performing Organization Address City/[facility]/ZIP Co de Phone Number [facility] [place] [address] * Differential, Automated (04/17/2018 4:43 AM EDT) Pathologist [facility] Neutrophil % 64.8 % [facility]ORAT[facility] Neutrophil Absolute 3.62 1.70 - 6.10 x10(3)/[facility] LABORATORY Lymph % 18.6 % [facility] Lymphocytes Abs 1.0 0.9 - 3.2 x10(3)/[facility] LABORATORY Monocyte % 10.0 % [facility] Monocyte Abs 0.6 0.3 - 0.9 x10(3)/[facility] LABORATORY Eos % 5.0 % [facility] Eosinophils Abs 0.3 0.0 - 0.4 x10(3)/[facility] LABORATORY Basophil % 0.9 % [facility] Baso Absolute 0.0 0.0 - 0.1 x10(3)/[facility] LABORATORY Immature Gran % 0.70 % [facility] Comment: Immature granulocytes(IG's)percentage and absolute count will include metamyelocytes, myelocytes, and promyelocytes. Blood smears from CBCs yielding IG's will be scanned manually for concordance. If this scan disagrees with the automated IG or if promyelocytes are noted, a manual differential will be performed. Immature Gran Absolute 0.04 0.00 - 0.04 x10(3)/[facility] LABORATORY Blood specimen (specimen) 04/17/2018 4:43 AM EDT 04/17/2018 5:09 AM EDT Narrative Resulting Agency Comment Spec In Lab Apple Gutierrez MD HEMATOLOGY ORDERABLE S [facility] [place] [address] * (ABNORMAL) Hemogram (04/17/2018 4:43 AM EDT) White Blood Cell 5.6 4.0 - 9.5 x10(3)/[facility] LABORATORY Red Blood Cell 2.47(L) 4.58 - 5.54 x10(6)/[facility] LABORATORY Hemoglobin 7.5(L) 13.7 - 16.5 gm/dL [facility] Hematocrit 22.9(L) 40.5 - 48.5 % [facility] Mean Cell Volume 92.7 82.9 - 93.1 [facility] LABORATORY Mean Cell Hemoglobin 30.4 27.5 - 32.1 pg [facility] Mean Cell Hemoglobin Concentration 32.8 32.0 - 35.7 gm/dL [facility] Platelet 282 145 - 357 x10(3)/[facility] LABORATORY RDW Standard Deviation 53.0(H) 36.0 - 45.0 [facility] LABORATORY RDW coefficient of variation 15.6(H) 11.4 - 13.8 % [facility] Mean Platelet Volume 8.3 7.6 - 12.9 [facility] LABORATORY NRBC% auto 0.0 % [facility] NRBC Absolute 0.000 0.000 - 0.000 x10(3)/[facility] LABORATORY Blood specimen (specimen) 04/17/2018 4:43 AM EDT 04/17/2018 5:09 AM EDT Narrative Resulting Agency Comment Spec In Lab Apple Gutierrez MD HEMATOLOGY ORDERABLE S Performing Organization Address [facility] Co de Phone Number [facility] [place] [address] * APTT (04/17/2018 4:43 AM EDT) Partial Thromboplastin Time 27 25 - 37 sec [facility] Comment: The PTT is NOT [...] BLES Performing Organization Address [facility] de Phone Number [facility] [place] [address] * Prothrombin Time (04/17/2018 4:43 AM EDT) Prothrombin Time 11.7 9.4 - 12.5 sec [facility] International Normalization Ratio 1.0 [facility] Comment: An INR <2.0 indicates [...] HEMATOLOGY ORDERA BLES Performing Organization Address [facility] Co de Phone Number [facility] [place] [address] * (ABNORMAL) Basic Metabolic Panel (non-fasting) (04/17/2018 4:43 AM EDT) Glucose 100 65 - 199 mg/dL [facility] Comment:Diabetes: >=200 mg/d L plus symptoms Blood Urea Nitrogen 32(H) 10 - 20 mg/dL [facility] Creatinine 2.27(H) 0.80 - 1.50 mg/dL [facility] Sodium 135 135 - 145 mmol/L [facility] Potassium 4.1 3.5 - 5.0 mmol/L [facility] Comment: Please note: ??Patients with WBC >100,000 may have falsely elevated Potassium levels. ??For accurate Potassium quantification in these patients send serum separator tube (gold top) for subsequent determinations. ??Contact the Clinical Chemistry Laboratory if there are any questions. Chloride 104 98 - 107 mmol/L [facility] Carbon Dioxide 19(L) 22 - 31 mmol/L [facility] Anion Gap 12 5 - 15 mmol/L [facility] Calcium 7.7(L) 8.5 - 10.5 mg/dL [facility] Est Glomerular Filtration Rate 31(L) >=60 mL/min/1. 73 m?? [facility] Comment: The eGFR was calculated using the CKD-EPI equation. As with all creatinine based estimates of kidney function, eGFR values calculated with the CKD-EPI equation are not accurate in patients with acute kidney failure, extremes of body mass or the acutely ill. [email or web address]UGOnk[facility] eGFR 36(L) >=60 mL/min/1. 73 m?? [facility] Comment: The eGFR was calculated using the CKD-EPI equation. As with all creatinine based estimates of kidney function, eGFR values calculated with the CKD-EPI equation are not accurate in patients with acute kidney failure, extremes of body mass or the acutely ill. [email or web address] Blood specimen (specimen) 04/17/2018 4:43 AM EDT 04/17/2018 5:09 AM EDT Narrative Resulting Agency Comment Spec In Lab Hay Sparks MD CHEMISTRY ORDERABLES Performing Organization Address [place]/[facility]/[place] [address] * (ABNORMAL) Differential, Automated (04/16/2018 4:17 AM EDT) Neutrophil % 59.4 % [facility] Neutrophil Absolute 3.07 1.70 - 6.10 x10(3)/[facility] LABORATORY Lymph % 24.4 % [facility] Lymphocytes Abs 1.3 0.9 - 3.2 x10(3)/[facility] LABORATORY Monocyte % 10.3 % [facility] Monocyte Abs 0.5 0.3 - 0.9 x10(3)/[facility] LABORATORY Eos % 4.5 % [facility] Eosinophils Abs 0.2 0.0 - 0.4 x10(3)/[facility] LABORATORY Basophil % 0.4 % [facility] Baso Absolute 0.0 0.0 - 0.1 x10(3)/[facility] LABORATORY Immature Gran % 1.00 % [facility] Comment: Immature granulocytes(IG's)percentage and absolute count will include metamyelocytes, myelocytes, and promyelocytes. Blood smears from CBCs yielding IG's will be scanned manually for concordance. If this scan disagrees with the automated IG or if promyelocytes are noted, a manual differential will be performed. Immature Gran Absolute 0.05(H) 0.00 - 0.04 x10(3)/ L [facility] Blood specimen (specimen) 04/16/2018 4:17 AM EDT 04/16/2018 4:52 AM EDT Narrative Resulting Agency Comment Spec In Lab Apple Gutierrez MD HEMATOLOGY ORDERABLE S Performing Organization Address [place]/[facility]/[place] [address] * (ABNORMAL) Hemogram (04/16/2018 4:17 AM EDT) White Blood Cell 5.2 4.0 - 9.5 x10(3)/[facility] LABORATORY Red Blood Cell 2.62(L) 4.58 - 5.54 x10(6)/[facility] LABORATORY Hemoglobin 7.9(L) 13.7 - 16.5 gm/dL [facility] Hematocrit 24.9(L) 40.5 - 48.5 % [facility] Mean Cell Volume 95.0(H) 82.9 - 93.1 [facility] LABORATORY Mean Cell Hemoglobin 30.2 27.5 - 32.1 pg [facility] Mean Cell Hemoglobin Concentration 31.7(L) 32.0 - 35.7 gm/dL [facility] Platelet 288 145 - 357 x10(3)/[facility] LABORATORY RDW Standard Deviation 52.6(H) 36.0 - 45.0 [facility] LABORATORY RDW coefficient of variation 15.4(H) 11.4 - 13.8 % [facility] Mean Platelet Volume 8.5 7.6 - 12.9 [facility] LABORATORY NRBC% auto 0.0 % [facility] NRBC Absolute 0.000 0.000 - 0.000 x10(3)/[facility] LABORATORY Blood specimen (specimen) 04/16/2018 4:17 AM EDT 04/16/2018 4:52 AM EDT Narrative Resulting Agency Comment Spec In Lab Apple Gutierrez MD HEMATOLOGY ORDERABLE S [facility] [place] [address] * APTT (04/16/2018 4:17 AM EDT) Partial Thromboplastin Time 27 25 - 37 sec [facility] Comment: The PTT is NOT [...] [facility] de Phone Number [facility] [place] [address] * Prothrombin Time (04/16/2018 4:17 AM EDT) Prothrombin Time 11.5 9.4 - 12.5 sec [facility] International Normalization Ratio 1.0 [facility] Comment: An INR <2.0 indicates [...] HEMATOLOGY ORDERA BLES Performing Organization Address [facility] Co de Phone Number [facility] [place] [address] * (ABNORMAL) Basic Metabolic Panel (non-fasting) (04/16/2018 4:17 AM EDT) Glucose 108 65 - 199 mg/dL [facility] Comment:Diabetes: >=200 mg/d L plus symptoms Blood Urea Nitrogen 31(H) 10 - 20 mg/dL [facility] Creatinine 2.27(H) 0.80 - 1.50 mg/dL [facility] Sodium 135 135 - 145 mmol/L [facility] Potassium 4.0 3.5 - 5.0 mmol/L [facility] Comment: Please note: ??Patients with WBC >100,000 may have falsely elevated Potassium levels. ??For accurate Potassium quantification in these patients send serum separator tube (gold top) for subsequent determinations. ??Contact the Clinical Chemistry Laboratory if there are any questions. Chloride 103 98 - 107 mmol/L [facility] Carbon Dioxide 20(L) 22 - 31 mmol/L [facility] Anion Gap 12 5 - 15 mmol/L [facility] Calcium 7.7(L) 8.5 - 10.5 mg/dL [facility] Est Glomerular Filtration Rate 31(L) >=60 mL/min/1. 73 m?? [facility] Comment: The eGFR was calculated using the CKD-EPI equation. As with all creatinine based estimates of kidney function, eGFR values calculated with the CKD-EPI equation are not accurate in patients with acute kidney failure, extremes of body mass or the acutely ill. [email or web address]UG[facility] eGFR 36(L) >=60 mL/min/1. 73 m?? [facility] Comment: The eGFR was calculated using the CKD-EPI equation. As with all creatinine based estimates of kidney function, eGFR values calculated with the CKD-EPI equation are not accurate in patients with acute kidney failure, extremes of body mass or the acutely ill. [email or web address] Blood specimen (specimen) 04/16/2018 4:17 AM EDT 04/16/2018 4:52 AM EDT Narrative Resulting Agency Comment Spec In Lab Hay Sparks MD CHEMISTRY ORDERABLES [facility] [place] [address] * APTT (04/15/2018 4:57 AM EDT) Partial Thromboplastin Time 27 25 - 37 sec [facility] Comment: The PTT is NOT appropriate for heparin monitoring. Use the Anti-Xa level for heparin monitoring (HEP UFH) or LMWH monitoring (HEP LMW). A PTT less than 37 seconds generally indicates adequate hemostasis. Blood specimen (specimen) 04/15/2018 4:57 AM EDT 04/15/2018 5:23 AM EDT Narrative Resulting Agency Comment Spec In Lab Chase Olvera MD HEMATOLOGY ORDERA BLES Performing Organization Address [facility] de Phone Number [facility] [place] [address] * (ABNORMAL) Prothrombin Time (04/15/2018 4:57 AM EDT) Prothrombin Time 12.9(H) 9.4 - 12.5 sec [facility] International Normalization Ratio 1.2 [facility] Comment: An INR <2.0 indicates [...] HEMATOLOGY ORDERA BLES Performing Organization Address [facility] Co de Phone Number [facility] [place] [address] * Differential, Automated (04/15/2018 4:47 AM EDT) Neutrophil % 59.8 % [facility] Neutrophil Absolute 2.98 1.70 - 6.10 x10(3)/[facility] Lymph % 22.4 % [facility] Lymphocytes Abs 1.1 0.9 - 3.2 x10(3)/[facility] Monocyte % 11.2 % [facility] Monocyte Abs 0.6 0.3 - 0.9 x10(3)/[facility] Eos % 5.6 % [facility] Eosinophils Abs 0.3 0.0 - 0.4 x10(3)/[facility] Basophil % 0.4 % [facility] Baso Absolute 0.0 0.0 - 0.1 x10(3)/[facility] Immature Gran % 0.60 % [facility] Comment: Immature granulocytes(IG's)percentage and absolute count will include metamyelocytes, myelocytes, and promyelocytes. Blood smears from CBCs yielding IG's will be scanned manually for concordance. If this scan disagrees with the automated IG or if promyelocytes are noted, a manual differential will be performed. Immature Gran Absolute 0.03 0.00 - 0.04 x10(3)/[facility] Blood specimen (specimen) 04/15/2018 4:47 AM EDT 04/15/2018 4:56 AM EDT Narrative Resulting Agency Comment Spec In Lab Apple Gutierrez MD HEMATOLOGY ORDERABLE S [facility] [place] [address] * (ABNORMAL) Hemogram (04/15/2018 4:47 AM EDT) White Blood Cell 5.0 4.0 - 9.5 x10(3)/mc L [facility] Red Blood Cell 2.48(L) 4.58 - 5.54 x10(6)/mc L [facility] Hemoglobin 7.5(L) 13.7 - 16.5 gm/dL [facility] Hematocrit 23.3(L) 40.5 - 48.5 % [facility] Mean Cell Volume 94.0(H) 82.9 - 93.1 fL [facility] Mean Cell Hemoglobin 30.2 27.5 - 32.1 pg [facility] Mean Cell Hemoglobin Concentration 32.2 32.0 - 35.7 gm/dL [facility] Platelet 224 145 - 357 x10(3)/mc L [facility] RDW Standard Deviation 52.9(H) 36.0 - 45.0 fL [facility] RDW coefficient of variation 15.4(H) 11.4 - 13.8 % [facility] Mean Platelet Volume 8.3 7.6 - 12.9 fL [facility] NRBC% auto 0.0 % [facility] NRBC Absolute 0.000 0.000 - 0.000 x10(3)/mc L [facility] Blood specimen (specimen) 04/15/2018 4:47 AM EDT 04/15/2018 4:56 AM EDT Narrative Resulting Agency Comment Spec In Lab Apple Gutierrez MD HEMATOLOGY ORDERABLE S [facility] [place] [id number] * (ABNORMAL) Basic Metabolic Panel (non-fasting) (04/15/2018 4:47 AM EDT) Glucose 105 65 - 199 mg/dL [facility] Comment:Diabetes: >=200 mg/d L plus symptoms Blood Urea Nitrogen 30(H) 10 - 20 mg/dL [facility] Creatinine 2.17(H) 0.80 - 1.50 mg/dL [facility] Sodium 138 135 - 145 mmol/L [facility] Potassium 4.6 3.5 - 5.0 mmol/L [facility] Comment: Please note: ??Patients with WBC >100,000 may have falsely elevated Potassium levels. ??For accurate Potassium quantification in these patients send serum separator tube (gold top) for subsequent determinations. ??Contact the Clinical Chemistry Laboratory if there are any questions. Chloride 105 98 - 107 mmol/L [facility] Carbon Dioxide 20(L) 22 - 31 mmol/L [facility] Anion Gap 13 5 - 15 mmol/L [facility] Calcium 7.6(L) 8.5 - 10.5 mg/dL [facility] Est Glomerular Filtration Rate 33(L) >=60 mL/min/1. 73 m?? [facility] Comment: The eGFR was calculated using the CKD-EPI equation. As with all creatinine based estimates of kidney function, eGFR values calculated with the CKD-EPI equation are not accurate in patients with acute kidney failure, extremes of body mass or the acutely ill. [email or web address] eGFR 38(L) >=60 mL/min/1. 73 m?? [facility] Comment: The eGFR was calculated using the CKD-EPI equation. As with all creatinine based estimates of kidney function, eGFR values calculated with the CKD-EPI equation are not accurate in patients with acute kidney failure, extremes of body mass or the acutely ill. [email or web address] Blood specimen (specimen) 04/15/2018 4:47 AM EDT 04/15/2018 4:56 AM EDT Narrative Resulting Agency Comment Spec In Lab Hay Sparks MD CHEMISTRY ORDERABLES [facility] [place] [address] * (ABNORMAL) Differential, Automated (04/14/2018 5:48 AM EDT) Neutrophil % 68.9 % [facility] Neutrophil Absolute 3.74 1.70 - 6.10 x10(3)/mc L [facility] Lymph % 15.7 % [facility] Lymphocytes Abs 0.8(L) 0.9 - 3.2 x10(3)/mc L [facility] Monocyte % 11.1 % [facility] Monocyte Abs 0.6 0.3 - 0.9 x10(3)/mc L [facility] Eos % 3.7 % [facility] Eosinophils Abs 0.2 0.0 - 0.4 x10(3)/[facility] LABORATORY Basophil % 0.2 % [facility] Baso Absolute 0.0 0.0 - 0.1 x10(3)/[facility] LABORATORY Immature Gran % 0.40 % [facility] Comment: Immature granulocytes(IG's)percentage and absolute count will include metamyelocytes, myelocytes, and promyelocytes. Blood smears from CBCs yielding IG's will be scanned manually for concordance. If this scan disagrees with the automated IG or if promyelocytes are noted, a manual differential will be performed. Immature Gran Absolute 0.02 0.00 - 0.04 x10(3)/[facility] LABORATORY Blood specimen (specimen) 04/14/2018 5:48 AM EDT 04/14/2018 5:59 AM EDT Narrative Resulting Agency Comment Spec In Lab Apple Gutierrez MD HEMATOLOGY ORDERABLE S [facility] [place] [address] * (ABNORMAL) Hemogram (04/14/2018 5:48 AM EDT) White Blood Cell 5.4 4.0 - 9.5 x10(3)/[facility] LABOR[facility] Red Blood Cell 2.48(L) 4.58 - 5.54 x10(6)/ L [facility] Hemoglobin 7.5(L) 13.7 - 16.5 gm/dL [facility] Hematocrit 22.9(L) 40.5 - 48.5 % [facility] Mean Cell Volume 92.3 82.9 - 93.1 fL [facility] Mean Cell Hemoglobin 30.2 27.5 - 32.1 pg [facility] Mean Cell Hemoglobin Concentration 32.8 32.0 - 35.7 gm/dL [facility] Platelet 208 145 - 357 x10(3)/mc L [facility] RDW Standard Deviation 51.8(H) 36.0 - 45.0 fL [facility] RDW coefficient of variation 15.4(H) 11.4 - 13.8 % [facility] Mean Platelet Volume 8.4 7.6 - 12.9 [facility] LAB[facility] NRBC% auto 0.0 % [facility] NRBC Absolute 0.000 0.000 - 0.000 x10(3)/mc L [facility] Blood specimen (specimen) 04/14/2018 5:48 AM EDT 04/14/2018 5:59 AM EDT Narrative Resulting Agency Comment Spec In Lab Apple Gutierrez MD HEMATOLOGY ORDERABLE S Performing Organization Address City/[facility]/ZIP Co de Phone Number [facility] [place] [address] * APTT (04/14/2018 5:48 AM EDT) Partial Thromboplastin Time 28 25 - 37 sec [facility] Comment: The PTT is NOT [...] [facility]ZIP Co de Phone Number [facility] [place] [address] * (ABNORMAL) Prothrombin Time (04/14/2018 5:48 AM EDT) Prothrombin Time 15.1(H) 9.4 - 12.5 sec [facility] International Normalization Ratio 1.4 [facility] Comment: An INR <2.0 indicates [...] Lab Chase Olvera MD HEMATOLOGY ORDERA BLES [facility] [place] [address] * (ABNORMAL) Basic Metabolic Panel (non-fasting) (04/14/2018 5:48 AM EDT) Glucose 110 65 - 199 mg/dL [facility] Comment:Diabetes: >=200 mg/d L plus symptoms Blood Urea Nitrogen 32(H) 10 - 20 mg/dL [facility] Creatinine 2.38(H) 0.80 - 1.50 mg/dL [facility] Sodium 138 135 - 145 mmol/L [facility] Potassium 4.1 3.5 - 5.0 mmol/L [facility] Comment: Please note: ??Patients with WBC >100,000 may have falsely elevated Potassium levels. ??For accurate Potassium quantification in these patients send serum separator tube (gold top) for subsequent determinations. ??Contact the Clinical Chemistry Laboratory if there are any questions. Chloride 106 98 - 107 mmol/L [facility] Carbon Dioxide 20(L) 22 - 31 mmol/L [facility] Anion Gap 12 5 - 15 mmol/L [facility] Calcium 7.6(L) 8.5 - 10.5 mg/dL [facility] Est Glomerular Filtration Rate 29(L) >=60 mL/min/1. 73 m?? [facility] Comment: The eGFR was calculated using the CKD-EPI equation. As with all creatinine based estimates of kidney function, eGFR values calculated with the CKD-EPI equation are not accurate in patients with acute kidney failure, extremes of body mass or the acutely ill. [email or web address] eGFR 34(L) >=60 mL/min/1. 73 m?? [facility] Comment: The eGFR was calculated using the CKD-EPI equation. As with all creatinine based estimates of kidney function, eGFR values calculated with the CKD-EPI equation are not accurate in patients with acute kidney failure, extremes of body mass or the acutely ill. [email or web address] Blood specimen (specimen) 04/14/2018 5:48 AM EDT 04/14/2018 5:59 AM EDT Narrative Resulting Agency Comment Spec In Lab Hay Sparks MD CHEMISTRY ORDERABLES [facility] [place] [address] * Differential, Automated (04/13/2018 8:14 AM EDT) Neutrophil % 66.0 % [facility] Neutrophil Absolute 3.49 1.70 - 6.10 x10(3)/[facility] LAB[facility] Lymph % 16.3 % [facility] Lymphocytes Abs 0.9 0.9 - 3.2 x10(3)/[facility] Monocyte % 10.4 % [facility] Monocyte Abs 0.6 0.3 - 0.9 x10(3)/[facility] Eos % 6.3 % [facility] Eosinophils Abs 0.3 0.0 - 0.4 x10(3)/[facility] Basophil % 0.4 % [facility] Baso Absolute 0.0 0.0 - 0.1 x10(3)/[facility] Immature Gran % 0.60 % [facility] Comment: Immature granulocytes(IG's)percentage and absolute count will include metamyelocytes, myelocytes, and promyelocytes. Blood smears from CBCs yielding IG's will be scanned manually for concordance. If this scan disagrees with the automated IG or if promyelocytes are noted, a manual differential will be performed. Immature Gran Absolute 0.03 0.00 - 0.04 x10(3)/mcL [facility] Blood specimen (specimen) 04/13/2018 8:14 AM EDT 04/13/2018 8:21 AM EDT Narrative Resulting Agency Comment Spec In Lab Apple Gutierrez MD HEMATOLOGY ORDERABLE S [facility] [place] [address] * (ABNORMAL) Hemogram (04/13/2018 8:14 AM EDT) White Blood Cell 5.3 4.0 - 9.5 x10(3)/mc L [facility] Red Blood Cell 2.53(L) 4.58 - 5.54 x10(6)/mc L [facility] Hemoglobin 7.8(L) 13.7 - 16.5 gm/dL [facility] Hematocrit 23.3(L) 40.5 - 48.5 % [facility] Mean Cell Volume 92.1 82.9 - 93.1 fL [facility] Mean Cell Hemoglobin 30.8 27.5 - 32.1 pg [facility] Mean Cell Hemoglobin Concentration 33.5 32.0 - 35.7 gm/dL [facility] Platelet 190 145 - 357 x10(3)/mc L [facility] RDW Standard Deviation 53.5(H) 36.0 - 45.0 fL [facility] RDW coefficient of variation 15.9(H) 11.4 - 13.8 % [facility] Mean Platelet Volume 8.2 7.6 - 12.9 fL [facility] NRBC% auto 0.0 % [facility] NRBC Absolute 0.000 0.000 - 0.000 x10(3)/mc L [facility] Blood specimen (specimen) 04/13/2018 8:14 AM EDT 04/13/2018 8:21 AM EDT Narrative Resulting Agency Comment Spec In Lab Apple Gutierrez MD HEMATOLOGY ORDERABLE S Performing Organization Address [facility] Co de Phone Number [facility] [place] [address] * APTT (04/13/2018 8:14 AM EDT) Partial Thromboplastin Time 29 25 - 37 sec [facility] Comment: The PTT is NOT appropriate for heparin monitoring. Use the Anti-Xa level for heparin monitoring (HEP UFH) or LMWH monitoring (HEP LMW). A PTT less than 37 seconds generally indicates adequate hemostasis. Blood specimen (specimen) 04/13/2018 8:14 AM EDT 04/13/2018 8:21 AM EDT Narrative Resulting Agency Comment Spec In Lab Chase Olvera MD HEMATOLOGY ORDERA BLES Performing Organization Address [facility] de Phone Number [facility] [place] [address] * (ABNORMAL) Prothrombin Time (04/13/2018 8:14 AM EDT) Prothrombin Time 17.3(H) 9.4 - 12.5 sec [facility] International Normalization Ratio 1.6 [facility] Comment: An INR <2.0 indicates [...] Lab Chase Olvera MD HEMATOLOGY ORDERA BLES [facility] [place] [address] * (ABNORMAL) Basic Metabolic Panel (non-fasting) (04/13/2018 8:14 AM EDT) Glucose 108 65 - 199 mg/dL [facility] Comment:Diabetes: >=200 mg/d L plus symptoms Blood Urea Nitrogen 30(H) 10 - 20 mg/dL [facility] Creatinine 2.28(H) 0.80 - 1.50 mg/dL [facility] Sodium 138 135 - 145 mmol/L [facility] Potassium 4.5 3.5 - 5.0 mmol/L [facility] Comment: Please note: ??Patients with WBC >100,000 may have falsely elevated Potassium levels. ??For accurate Potassium quantification in these patients send serum separator tube (gold top) for subsequent determinations. ??Contact the Clinical Chemistry Laboratory if there are any questions. Chloride 104 98 - 107 mmol/L [facility] Carbon Dioxide 20(L) 22 - 31 mmol/L [facility] Anion Gap 14 5 - 15 mmol/L [facility] Calcium 7.7(L) 8.5 - 10.5 mg/dL [facility] Est Glomerular Filtration Rate 31(L) >=60 mL/min/1. 73 m?? [facility] Comment: The eGFR was calculated using the CKD-EPI equation. As with all creatinine based estimates of kidney function, eGFR values calculated with the CKD-EPI equation are not accurate in patients with acute kidney failure, extremes of body mass or the acutely ill. [email or web address] eGFR 36(L) >=60 mL/min/1. 73 m?? [facility] Comment: The eGFR was calculated using the CKD-EPI equation. As with all creatinine based estimates of kidney function, eGFR values calculated with the CKD-EPI equation are not accurate in patients with acute kidney failure, extremes of body mass or the acutely ill. [email or web address] Blood specimen (specimen) 04/13/2018 8:14 AM EDT 04/13/2018 8:21 AM EDT Narrative Resulting Agency Comment Spec In Lab Hay Sparks MD CHEMISTRY ORDERABLES Performing Organization Address [facility] de Phone Number [facility] [place] [address] * Tacrolimus level (04/13/2018 8:14 AM EDT) Tacrolimus <2.0 ng/mL [facility] Comment: Trough therapeutic: ??5-15 ng/mL Performed by ultra-performance liquid chromatography tandem mass spectrometry (UPLCMS/MS). This test was developed and its performance characteristics determined by [facility]. It has not been cleared [...] [facility] de Phone Number [facility] [place] [address] * (ABNORMAL) Protein/Creatinine Ratio, urine (04/13/2018 3:45 AM EDT) Creatinine, Urine 51 mg/dL [facility] Protein, Urine 373(H) 0 - 12 mg/dL [facility] Protein / Creatinine Ratio, Urine 7.3 ratio [facility] Urine specimen (specimen) 04/13/2018 3:45 AM EDT 04/13/2018 3:55 AM EDT Narrative Resulting Agency Comment Spec In Lab Chase Olvera MD URINE ORDERABLES Performing Organization Address [facility]/ZIP Co de Phone Number [facility] [place] [address] * (ABNORMAL) Urinalysis Microscopic Exam (04/13/2018 1:51 AM EDT) RBC, Urine 4(H) 0 - 3 /HPF [facility] WBC, Urine 1 0 - 3 /HPF [facility] Transitional Epithelial Cells, Urine <1 <=1 /HPF [facility] Hyaline Casts, Urine 4(H) 0 - 2 /LPF [facility] Urine specimen obtained by clean catch procedure (specimen) 04/13/2018 1:51 AM EDT 04/13/2018 1:58 AM EDT Narrative Resulting Agency Comment Spec In Lab Rasta Hernández MD URINE ORDERABLES Performing Organization Address [facility] Co de Phone Number [facility] [place] [address] * (ABNORMAL) Urinalysis with reflex Culture (04/13/2018 1:51 AM EDT) Glucose, Urine Dipstick Negative Negative mg/dL [facility] Protein, Urine Dipstick >=500(A) Negative mg/dL [facility] Bilirubin, Urine Dipstick Negative Negative mg/dL [facility] Comment: Clinical correlation required for positive Urine Bilirubin results as false positive may occur with some drugs and drug related products. If a false positive is suspected a serum total bilirubin should be considered if clinically indicated. Urobilinogen, Urine Dipstick Normal Normal mg/dL [facility] pH, Urn (dipstick) 7.0 5.0 - 8.0 [facility] Blood, Urine Dipstick Negative Negative mg/dL [facility] Ketone, Urine Dipstick Negative Negative mg/dL [facility] Nitrite, Urine Dipstick Negative Negative [facility] Leukocytes, Urine Dipstick Negative Negative [facility] Appearance, Urine Dipstick Clear Clear [facility] Specific [place] Urine Automated 1.017 1.002 - 1.030 [facility] Color, Urine Dipstick Yellow Yellow [facility] Reflex to Culture No [facility] Urine specimen obtained by clean catch procedure (specimen) 04/13/2018 1:51 AM EDT 04/13/2018 1:58 AM EDT Narrative Resulting Agency Comment Spec In Lab Chase Olvera MD URINE ORDERABLES [facility] [place] [address] * MRI Angiogram Neck wo Contrast (04/12/2018 [...] atherosclerosis, NO CONTRAST TECHNIQUE: MRA of the [place] and MRA of the neck were performed without IV contrast, with nuwj-ty-lwnfln technique. ?? COMPARISON: MR head 04/07/2018 FINDINGS: MRA [place]: The intracranial internal carotid arteries, vertebral arteries, basilar artery, superior cerebellar arteries are normal in course and caliber. The bilateral MARCUS, MCA, and FEEDMOBILE DRIVER are normal in course and caliber. No focal stenosis caliber change or aneurysm.. MRA neck: [id number] imaging excludes the arch. Vertebral arteries, common carotid arteries, bilateral ECA, ICA are normal in course and caliber. Procedure Note Sabrina Vargas MD - 04/12/2018 EXAMINATION: MRI ANGIOGRAM HEAD WO CONTRAST (GENERIC), MRI ANGIOGRAM NECKWO CONTRAST CLINICAL HISTORY: question intra cranial atherosclerosis, NO CONTRAST TECHNIQUE: MRA of the [place] and MRA of the neck were performed withoutIV contrast, with oghl-xw-jdyxft technique. COMPARISON: MR head 04/07/2018 FINDINGS: MRA [place]: The intracranial internal carotid arteries, vertebral arteries, basilarartery, superior cerebellar arteries are normal in course and caliber. Thebilateral MARCUS, MCA, and FEEDMOBILE DRIVER are normal in course and caliber. No focal stenosiscaliber change or aneurysm.. MRA neck: [id number] imaging excludes the arch. Vertebral arteries, common [...] atherosclerosis, NO CONTRAST TECHNIQUE: MRA of the [place] and MRA of the neck were performed without IV contrast, with vhfm-tl-bwlphv technique. ?? COMPARISON: MR head 04/07/2018 FINDINGS: MRA [place]: The intracranial internal carotid arteries, vertebral arteries, basilar artery, superior cerebellar arteries are normal in course and caliber. The bilateral MARCUS, MCA, and FEEDMOBILE DRIVER are normal in course and caliber. No focal stenosis caliber change or aneurysm.. MRA neck: [id number] imaging excludes the arch. Vertebral arteries, common carotid arteries, bilateral ECA, ICA are normal in course and caliber. Procedure Note Sabrina Vargas MD - 04/12/2018 EXAMINATION: MRI ANGIOGRAM HEAD WO CONTRAST (GENERIC), MRI ANGIOGRAM NECKWO CONTRAST CLINICAL HISTORY: question intra cranial atherosclerosis, NO CONTRAST TECHNIQUE: MRA of the [place] and MRA of the neck were performed withoutIV contrast, with evck-gq-fgorbn technique. COMPARISON: MR head 04/07/2018 FINDINGS: MRA [place]: The intracranial internal carotid arteries, vertebral arteries, basilarartery, superior cerebellar arteries are normal in course and caliber. Thebilateral MARCUS, MCA, and FEEDMOBILE DRIVER are normal in course and caliber. No focal stenosiscaliber change or aneurysm.. MRA neck: [id number]-xf-[id number] imaging excludes the arch. Vertebral arteries, common [...] [facility] Blood specimen (specimen) Venous Draw / Unknown 04/12/2018 8:40 AM EDT 04/12/2018 9:16 AM EDT Apple Gutierrez MD CHEMISTRY ORDERABLES [facility] [place] [address] * (ABNORMAL) Differential, Automated (04/12/2018 8:40 AM EDT) Neutrophil % 65.6 % [facility] Neutrophil Absolute 3.27 1.70 - 6.10 x10(3)/ L [facility] Lymph % 15.6 % [facility] Lymphocytes Abs 0.8(L) 0.9 - 3.2 x10(3)/ L [facility] Monocyte % 11.0 % [facility] Monocyte Abs 0.6 0.3 - 0.9 x10(3)/ L [facility] Eos % 6.6 % [facility] Eosinophils Abs 0.3 0.0 - 0.4 x10(3)/[facility] LABORATORY Basophil % 0.6 % [facility] Baso Absolute 0.0 0.0 - 0.1 x10(3)/[facility] LABORATORY Immature Gran % 0.60 % [facility] Comment: Immature granulocytes(IG's)percentage and absolute count will include metamyelocytes, myelocytes, and promyelocytes. Blood smears from CBCs yielding IG's will be scanned manually for concordance. If this scan disagrees with the automated IG or if promyelocytes are noted, a manual differential will be performed. Immature Gran Absolute 0.03 0.00 - 0.04 x10(3)/[facility] LABORAT[facility] Blood specimen (specimen) 04/12/2018 8:40 AM EDT 04/12/2018 9:15 AM EDT Narrative Resulting Agency Comment Spec In Lab Apple Gutierrez MD HEMATOLOGY ORDERABLE S [facility] [place] [address] * (ABNORMAL) Hemogram (04/12/2018 8:40 AM EDT) White Blood Cell 5.0 4.0 - 9.5 x10(3)/ L [facility] Red Blood Cell 2.60(L) 4.58 - 5.54 x10(6)/mc L [facility] Hemoglobin 7.9(L) 13.7 - 16.5 gm/dL [facility] Hematocrit 24.0(L) 40.5 - 48.5 % [facility] Mean Cell Volume 92.3 82.9 - 93.1 fL [facility] Mean Cell Hemoglobin 30.4 27.5 - 32.1 pg [facility] Mean Cell Hemoglobin Concentration 32.9 32.0 - 35.7 gm/dL [facility] Platelet 183 145 - 357 x10(3)/mc L [facility] RDW Standard Deviation 54.2(H) 36.0 - 45.0 [facility] LAB[facility] RDW coefficient of variation 16.0(H) 11.4 - 13.8 % [facility] Mean Platelet Volume 8.8 7.6 - 12.9 [facility] LABORATORY NRBC% auto 0.0 % [facility] NRBC Absolute 0.000 0.000 - 0.000 x10(3)/mc L [facility] Blood specimen (specimen) 04/12/2018 8:40 AM EDT 04/12/2018 9:15 AM EDT Narrative Resulting Agency Comment Spec In Lab Apple Gutierrez MD HEMATOLOGY ORDERABLE S Performing Organization Address City/State/[facility] Co de Phone Number [facility] [place] [address] * APTT (04/12/2018 8:40 AM EDT) Partial Thromboplastin Time 32 25 - 37 sec [facility] Comment: The PTT is NOT appropriate for heparin monitoring. Use the Anti-Xa level for heparin monitoring (HEP UFH) or LMWH monitoring (HEP LMW). A PTT less than 37 seconds generally indicates adequate hemostasis. Blood specimen (specimen) 04/12/2018 8:40 AM EDT 04/12/2018 9:15 AM EDT Narrative Resulting Agency Comment Spec In Lab Chase Olvera MD HEMATOLOGY ORDERA BLES Performing Organization Address [facility] Co de Phone Number [facility] [place] [address] * (ABNORMAL) Prothrombin Time (04/12/2018 8:40 AM EDT) Prothrombin Time 20.0(H) 9.4 - 12.5 sec [facility] International Normalization Ratio 1.8 [facility] Comment: An INR <2.0 indicates [...] HEMATOLOGY ORDERA BLES Performing Organization Address [facility] Co de Phone Number [facility] [place] [address] * (ABNORMAL) Basic Metabolic Panel (non-fasting) (04/12/2018 8:40 AM EDT) Glucose 113 65 - 199 mg/dL [facility] Comment:Diabetes: >=200 mg/d L plus symptoms Blood Urea Nitrogen 31(H) 10 - 20 mg/dL [facility] Creatinine 2.35(H) 0.80 - 1.50 mg/dL [facility] Sodium 140 135 - 145 mmol/L [facility] Potassium 4.4 3.5 - 5.0 mmol/L [facility] Comment: Please note: ??Patients with WBC >100,000 may have falsely elevated Potassium levels. ??For accurate Potassium quantification in these patients send serum separator tube (gold top) for subsequent determinations. ??Contact the Clinical Chemistry Laboratory if there are any questions. Chloride 106 98 - 107 mmol/L [facility] Carbon Dioxide 20(L) 22 - 31 mmol/L [facility] Anion Gap 14 5 - 15 mmol/L [facility] Calcium 7.4(L) 8.5 - 10.5 mg/dL [facility] Est Glomerular Filtration Rate 30(L) >=60 mL/min/1. 73 m?? [facility] Comment: The eGFR was calculated using the CKD-EPI equation. As with all creatinine based estimates of kidney function, eGFR values calculated with the CKD-EPI equation are not accurate in patients with acute kidney failure, extremes of body mass or the acutely ill. [email or web address] eGFR 35(L) >=60 mL/min/1. 73 m?? [facility] Comment: The eGFR was calculated using the CKD-EPI equation. As with all creatinine based estimates of kidney function, eGFR values calculated with the CKD-EPI equation are not accurate in patients with acute kidney failure, extremes of body mass or the acutely ill. [email or web address] Blood specimen (specimen) 04/12/2018 8:40 AM EDT 04/12/2018 9:15 AM EDT Narrative Resulting Agency Comment Spec In Lab Hay Sparks MD CHEMISTRY ORDERABLES Performing Organization Address City/State/[facility] Co de Phone Number [facility] [place] [address] * ECHO COMPLETE (04/11/2018 2:53 PM EDT) EF 65 HEARTLAB SYSTEM Anatomical Region Laterality Modality Other 04/11/2018 Narrative 04/11/2018 3:21 PM EDT Amended Report Procedure: ?Transthoracic Echocardiogram Patient: ?ARNOL CHRISTY J ? (Age): 1960(57y) Med Rec#: ? [id number] ?Sex: ?M ? Site Loc: ? [facility] ?Ht / Wt: ??178(cm)/91.6(kg Pt. Loc: ?Adult Floor ? BSA: ?2.1 Study Date: ?? 04/11/2018 ?Pt. Type: Outpatient Tape: ? Referring: Lida Peter Reading: Tim Estrella ([id number]) Fairground Operator: Chidi Steve [facility] Fairground Operator 2: Yimi Norman Diagnosis: *Cerebral infarction [...] ? Mid-Inferior ?Normal ? Mid-Inferoseptal ?Normal ? [place]-Septal ? Normal ? [place]-Anterior ? Normal ? [place]-Lateral ?Normal ? [place]-Inferior ? Normal ? [place]-Tip ?Normal ? This report has been electronically signed by: Tim Estrella M.D. ? 04/11/2018 15:21:34 Images reviewed and interpretation verified [facility] Cardiac Ultrasound Laboratory Procedure Note Tim Estrella MD - 04/11/2018 Amended Report Procedure: Transthoracic Echocardiogram Patient: ARNOL DU(Age): 1960(57y) Med Rec#: [id number] Sex: M Site Loc: [facility] Ht / Wt: 178(cm)/91.6(kg Pt. Loc: Adult Floor BSA: 2.1 Study Date: 04/11/2018 Pt. Type: Outpatient Tape: Referring: Lida Peter Reading: Tim Estrella ([id number]) Fairground Operator: Chidi Steve [facility] Fairground Operator 2: Yimi Norman Diagnosis: *Cerebral infarction [...] Normal Mid-Posterolateral Normal Mid-Inferior Normal Mid-Inferoseptal Normal [place]-Septal Normal [place]-Anterior Normal [place]-Lateral Normal [place]-Inferior Normal [place]-Tip Normal This report has been electronically signed by: Tim Estrella M.D. 04/11/2018 15:21:34 Images reviewed and interpretation verified [facility] Cardiac Ultrasound Laboratory Lida Peter MD ECHO ORDERABLES * ABORH Recheck Status (04/11/2018 6:28 AM EDT) Pathologist [facility] ABORH Type Recheck Completed [facility] Blood specimen (specimen) 04/11/2018 6:28 AM EDT 04/11/2018 6:28 AM EDT Narrative Resulting Agency Comment Spec In Lab Hanny Wiseman MD BLOOD BANK LAB ORDER KELLY [facility] [place] [address] * Antibody screen (04/11/2018 6:28 AM EDT) [facility] Ab Screen Interp Negative [facility] Expires at [id number] on: 04/14/2018 [facility] Blood specimen (specimen) 04/11/2018 6:28 AM EDT 04/11/2018 6:28 AM EDT Narrative Resulting Agency Comment Spec In Lab Hanny Wiseman MD BLOOD BANK LAB ORDER KELLY [facility] [place] [address] * ABO/Rh Typing (04/11/2018 6:28 AM EDT) ABORH Type A Pos [facility] Blood specimen (specimen) 04/11/2018 6:28 AM EDT 04/11/2018 6:28 AM EDT Narrative Resulting Agency Comment Spec In Lab Hanny Wiseman MD BLOOD BANK LAB ORDER KELLY [facility] [place] [address] * (ABNORMAL) Differential, Automated (04/11/2018 5:55 AM EDT) Neutrophil % 68.9 % [facility] Neutrophil Absolute 3.90 1.70 - 6.10 x10(3)/mc L [facility] Lymph % 14.7 % [facility] Lymphocytes Abs 0.8(L) 0.9 - 3.2 x10(3)/[facility] LABORATORY Monocyte % 10.6 % [facility] Monocyte Abs 0.6 0.3 - 0.9 x10(3)/ L [facility] Eos % 4.9 % [facility] Eosinophils Abs 0.3 0.0 - 0.4 x10(3)/ L [facility] Basophil % 0.4 % [facility] Baso Absolute 0.0 0.0 - 0.1 x10(3)/mc L [facility] Immature Gran % 0.50 % [facility] Comment: Immature granulocytes(IG's)percentage and absolute count will include metamyelocytes, myelocytes, and promyelocytes. Blood smears from CBCs yielding IG's will be scanned manually for concordance. If this scan disagrees with the automated IG or if promyelocytes are noted, a manual differential will be performed. Immature Gran Absolute 0.03 0.00 - 0.04 x10(3)/mc L [facility] Blood specimen (specimen) 04/11/2018 5:55 AM EDT 04/11/2018 6:03 AM EDT Narrative Resulting Agency Comment Spec In Lab Apple Gutierrez MD HEMATOLOGY ORDERABLE S [facility] [place] [address] * (ABNORMAL) Hemogram (04/11/2018 5:55 AM EDT) White Blood Cell 5.7 4.0 - 9.5 x10(3)/mc L [facility] Red Blood Cell 2.44(L) 4.58 - 5.54 x10(6)/mc L [facility] Hemoglobin 7.4(L) 13.7 - 16.5 gm/dL [facility] Hematocrit 22.2(L) 40.5 - 48.5 % [facility] Mean Cell Volume 91.0 82.9 - 93.1 fL [facility] Mean Cell Hemoglobin 30.3 27.5 - 32.1 pg [facility] Mean Cell Hemoglobin Concentration 33.3 32.0 - 35.7 gm/dL [facility] Platelet 150 145 - 357 x10(3)/mc L [facility] RDW Standard Deviation 52.6(H) 36.0 - 45.0 fL [facility] RDW coefficient of variation 15.9(H) 11.4 - 13.8 % [facility] Mean Platelet Volume 9.1 7.6 - 12.9 fL [facility] NRBC% auto 0.0 % [facility] NRBC Absolute 0.000 0.000 - 0.000 x10(3)/mc L [facility] Blood specimen (specimen) 04/11/2018 5:55 AM EDT 04/11/2018 6:03 AM EDT Narrative Resulting Agency Comment Spec In Lab Apple Gutierrez MD HEMATOLOGY ORDERABLE S [facility] [place] [address] * APTT (04/11/2018 5:55 AM EDT) Partial Thromboplastin Time 37 25 - 37 sec [facility] Comment: The PTT is NOT appropriate for heparin monitoring. Use the Anti-Xa level for heparin monitoring (HEP UFH) or LMWH monitoring (HEP LMW). A PTT less than 37 seconds generally indicates adequate hemostasis. Blood specimen (specimen) 04/11/2018 5:55 AM EDT 04/11/2018 6:04 AM EDT Narrative Resulting Agency Comment Spec In Lab Chase Olvera MD HEMATOLOGY ORDERA BLES Performing Organization Address [facility] Co de Phone Number [facility] [place] [address] * (ABNORMAL) Prothrombin Time (04/11/2018 5:55 AM EDT) Prothrombin Time 26.8(H) 9.4 - 12.5 sec [facility] International Normalization Ratio 2.4 [facility] Comment: An INR <2.0 indicates [...] HEMATOLOGY ORDERA BLES Performing Organization Address [facility] Co de Phone Number [facility] [place] [address] * (ABNORMAL) Basic Metabolic Panel (non-fasting) (04/11/2018 5:55 AM EDT) Glucose 112 65 - 199 mg/dL [facility] Comment:Diabetes: >=200 mg/d L plus symptoms Blood Urea Nitrogen 33(H) 10 - 20 mg/dL [facility] Creatinine 2.33(H) 0.80 - 1.50 mg/dL [facility] Sodium 144 135 - 145 mmol/L [facility] Potassium 4.5 3.5 - 5.0 mmol/L [facility] Comment: Please note: ??Patients with WBC >100,000 may have falsely elevated Potassium levels. ??For accurate Potassium quantification in these patients send serum separator tube (gold top) for subsequent determinations. ??Contact the Clinical Chemistry Laboratory if there are any questions. Chloride 110(H) 98 - 107 mmol/L [facility] Carbon Dioxide 22 22 - 31 mmol/L [facility] Anion Gap 12 5 - 15 mmol/L [facility] Calcium 7.3(L) 8.5 - 10.5 mg/dL [facility] Est Glomerular Filtration Rate 30(L) >=60 mL/min/1. 73 m?? [facility] Comment: The eGFR was calculated using the CKD-EPI equation. As with all creatinine based estimates of kidney function, eGFR values calculated with the CKD-EPI equation are not accurate in patients with acute kidney failure, extremes of body mass or the acutely ill. [email or web address] eGFR 35(L) >=60 mL/min/1. 73 m?? [facility] Comment: The eGFR was calculated using the CKD-EPI equation. As with all creatinine based estimates of kidney function, eGFR values calculated with the CKD-EPI equation are not accurate in patients with acute kidney failure, extremes of body mass or the acutely ill. [email or web address] Blood specimen (specimen) 04/11/2018 5:55 AM EDT 04/11/2018 6:04 AM EDT Narrative Resulting Agency Comment Spec In Lab Hay Sparks MD CHEMISTRY ORDERABLES [facility] [place] [address] * POCT Glucose (04/10/2018 7:56 AM EDT) Pathologist [facility] Glucose, POC 119 65 - 199 mg/dL [facility] Comment: Supplemental ranges: <140 mg/dL before meals <180 mg/dL all other times of the day Blood specimen (specimen) 04/10/2018 7:56 AM EDT 04/10/2018 7:56 AM EDT Chase Olvera MD POINT OF CARE SHAZIA T ORDERABLES [facility] [place] [address] * (ABNORMAL) Differential, Automated (04/10/2018 5:35 AM EDT) [facility] Neutrophil % 72.4 % [facility] Neutrophil Absolute 4.21 1.70 - 6.10 x10(3)/mc L [facility] Lymph % 12.7 % [facility] Lymphocytes Abs 0.7(L) 0.9 - 3.2 x10(3)/mc L [facility] Monocyte % 9.1 % [facility] Monocyte Abs 0.5 0.3 - 0.9 x10(3)/mc L [facility] Eos % 5.0 % [facility] Eosinophils Abs 0.3 0.0 - 0.4 x10(3)/mc L [facility] Basophil % 0.3 % [facility] Baso Absolute 0.0 0.0 - 0.1 x10(3)/mc L [facility] Immature Gran % 0.50 % [facility] Comment: Immature granulocytes(IG's)percentage and absolute count will include metamyelocytes, myelocytes, and promyelocytes. Blood smears from CBCs yielding IG's will be scanned manually for concordance. If this scan disagrees with the automated IG or if promyelocytes are noted, a manual differential will be performed. Immature Gran Absolute 0.03 0.00 - 0.04 x10(3)/mc L [facility] Blood specimen (specimen) 04/10/2018 5:35 AM EDT 04/10/2018 6:09 AM EDT Narrative Resulting Agency Comment Spec In Lab Apple Gutierrez MD HEMATOLOGY ORDERABLE S [facility] [place] [address] * (ABNORMAL) Hemogram (04/10/2018 5:35 AM EDT) White Blood Cell 5.8 4.0 - 9.5 x10(3)/[facility] LABOR[facility] Red Blood Cell 2.44(L) 4.58 - 5.54 x10(6)/[facility] LABORATORY Hemoglobin 7.3(L) 13.7 - 16.5 gm/dL [facility] Hematocrit 22.0(L) 40.5 - 48.5 % [facility] Mean Cell Volume 90.2 82.9 - 93.1 fL [facility] Mean Cell Hemoglobin 29.9 27.5 - 32.1 pg [facility] Mean Cell Hemoglobin Concentration 33.2 32.0 - 35.7 gm/dL [facility] Platelet 105(L) 145 - 357 x10(3)/[facility] LABORATORY RDW Standard Deviation 52.6(H) 36.0 - 45.0 [facility] RDW coefficient of variation 15.9(H) 11.4 - 13.8 % [facility] Mean Platelet Volume 9.6 7.6 - 12.9 [facility] NRBC% auto 0.0 % [facility] NRBC Absolute 0.000 0.000 - 0.000 x10(3)/[facility] LAB[facility] Blood specimen (specimen) 04/10/2018 5:35 AM EDT 04/10/2018 6:09 AM EDT Narrative Resulting Agency Comment Spec In Lab Apple Gutierrez MD HEMATOLOGY ORDERABLE S Performing Organization Address [facility] Co de Phone Number [facility] [place] [address] * APTT (04/10/2018 5:35 AM EDT) Partial Thromboplastin Time 36 25 - 37 sec [facility] Comment: The PTT is NOT [...] BLES Performing Organization Address [facility] Co de Phone Number [facility] [place] [address] * (ABNORMAL) Prothrombin Time (04/10/2018 5:35 AM EDT) Prothrombin Time 28.7(H) 9.4 - 12.5 sec [facility] International Normalization Ratio 2.6 [facility] Comment: An INR <2.0 indicates [...] HEMATOLOGY ORDERA BLES Performing Organization Address [facility] Co de Phone Number [facility] [place] [address] * (ABNORMAL) Basic Metabolic Panel (non-fasting) (04/10/2018 5:35 AM EDT) Glucose 112 65 - 199 mg/dL [facility] Comment:Diabetes: >=200 mg/d L plus symptoms Blood Urea Nitrogen 33(H) 10 - 20 mg/dL [facility] Creatinine 2.59(H) 0.80 - 1.50 mg/dL [facility] Sodium 144 135 - 145 mmol/L [facility] Potassium 4.3 3.5 - 5.0 mmol/L [facility] Comment: Please note: ??Patients with WBC >100,000 may have falsely elevated Potassium levels. ??For accurate Potassium quantification in these patients send serum separator tube (gold top) for subsequent determinations. ??Contact the Clinical Chemistry Laboratory if there are any questions. Chloride 109(H) 98 - 107 mmol/L [facility] Carbon Dioxide 23 22 - 31 mmol/L [facility] Anion Gap 12 5 - 15 mmol/L [facility] Calcium 7.9(L) 8.5 - 10.5 mg/dL [facility] Est Glomerular Filtration Rate 27(L) >=60 mL/min/1. 73 m?? [facility] Comment: The eGFR was calculated using the CKD-EPI equation. As with all creatinine based estimates of kidney function, eGFR values calculated with the CKD-EPI equation are not accurate in patients with acute kidney failure, extremes of body mass or the acutely ill. [email or web address] eGFR 31(L) >=60 mL/min/1. 73 m?? [facility] Comment: The eGFR was calculated using the CKD-EPI equation. As with all creatinine based estimates of kidney function, eGFR values calculated with the CKD-EPI equation are not accurate in patients with acute kidney failure, extremes of body mass or the acutely ill. [email or web address] Blood specimen (specimen) 04/10/2018 5:35 AM EDT 04/10/2018 6:09 AM EDT Narrative Resulting Agency Comment Spec In Lab Hay Sparks MD CHEMISTRY ORDERABLES Performing Organization Address City/[facility]/ZIP Co de Phone Number [facility] [place] [address] * POCT Glucose (04/09/2018 8:26 PM EDT) Glucose, POC 137 65 - 199 mg/dL [facility] Comment: Supplemental ranges: <140 mg/dL before meals <180 mg/dL all other times of the day Blood specimen (specimen) 04/09/2018 8:26 PM EDT 04/09/2018 8:26 PM EDT Chase Olvera MD POINT OF CARE SHAZIA T ORDERABLES Performing Organization Address [facility]/ZIP Co de Phone Number [facility] [place] [address] * APTT (04/09/2018 8:25 PM EDT) Partial Thromboplastin Time 37 25 - 37 sec [facility] Comment: The PTT is NOT appropriate for heparin monitoring. Use the Anti-Xa level for heparin monitoring (HEP UFH) or LMWH monitoring (HEP LMW). A PTT less than 37 seconds generally indicates adequate hemostasis. Blood specimen (specimen) 04/09/2018 8:25 PM EDT 04/09/2018 8:30 PM EDT Narrative Resulting Agency Comment Spec In Lab Lida Peter MD HEMATOLOGY ORDERABLE S [facility] [place] [address] * (ABNORMAL) Prothrombin Time (04/09/2018 8:25 PM EDT) Prothrombin Time 30.4(H) 9.4 - 12.5 sec [facility] International Normalization Ratio 2.7 [facility] Comment: An INR <2.0 indicates [...] Lab Lida Peter MD HEMATOLOGY ORDERABLE S [facility] [place] [address] * Transfuse thawed plasma (04/09/2018 6:04 PM [...] (04/09/2018 11:05 AM EDT) Dispensed? Yes [facility] Blood specimen (specimen) 04/09/2018 11:05 AM EDT 04/09/2018 11:07 AM EDT Lida Peter MD BLOOD BANK PRODUCT O RDERABLES [facility] [place] [address] * (ABNORMAL) APTT (04/09/2018 10:03 AM EDT) Partial Thromboplastin Time 39(H) 25 - 37 sec [facility] Comment: The PTT is NOT appropriate for heparin monitoring. Use the Anti-Xa level for heparin monitoring (HEP UFH) or LMWH monitoring (HEP LMW). A PTT less than 37 seconds generally indicates adequate hemostasis. Blood specimen (specimen) 04/09/2018 10:03 AM EDT 04/09/2018 10:13 AM EDT Narrative Resulting Agency Comment Spec In Lab Lida Peter MD HEMATOLOGY ORDERABLE S Performing Organization Address [facility]/ZIP Co de Phone Number [facility] [place] [address] * (ABNORMAL) Prothrombin Time (04/09/2018 10:03 AM EDT) Prothrombin Time 47.7(H) 9.4 - 12.5 sec [facility] International Normalization Ratio 4.2 [facility] Comment: An INR <2.0 indicates [...] [facility]ZIP Co de Phone Number [facility] [place] [address] * Differential, Automated (04/09/2018 3:05 AM EDT) Neutrophil % 74.9 % [facility] Neutrophil Absolute 6.08 1.70 - 6.10 x10(3)/[facility] LABORATORY Lymph % 12.2 % [facility] LABORATORY Lymphocytes Abs 1.0 0.9 - 3.2 x10(3)/[facility] LABORATORY Monocyte % 8.7 % [facility] Monocyte Abs 0.7 0.3 - 0.9 x10(3)/[facility] LABORATORY Eos % 3.2 % [facility] LAB[facility]ORY Eosinophils Abs 0.3 0.0 - 0.4 x10(3)/[facility] LABORATORY Basophil % 0.5 % [facility] Baso Absolute 0.0 0.0 - 0.1 x10(3)/[facility] LABORATORY Immature Gran % 0.50 % [facility] Comment: Immature granulocytes(IG's)percentage and absolute count will include metamyelocytes, myelocytes, and promyelocytes. Blood smears from CBCs yielding IG's will be scanned manually for concordance. If this scan disagrees with the automated IG or if promyelocytes are noted, a manual differential will be performed. Immature Gran Absolute 0.04 0.00 - 0.04 x10(3)/[facility] LABORATORY Blood specimen (specimen) 04/09/2018 3:05 AM EDT 04/09/2018 3:13 AM EDT Narrative Resulting Agency Comment Spec In Lab Apple Gutierrez MD HEMATOLOGY ORDERABLE S [facility] [place] [address] * (ABNORMAL) Hemogram (04/09/2018 3:05 AM EDT) White Blood Cell 8.1 4.0 - 9.5 x10(3)/mc L [facility] Red Blood Cell 2.55(L) 4.58 - 5.54 x10(6)/mc L [facility] Hemoglobin 7.8(L) 13.7 - 16.5 gm/dL [facility] Hematocrit 22.8(L) 40.5 - 48.5 % [facility] Mean Cell Volume 89.4 82.9 - 93.1 fL [facility] Mean Cell Hemoglobin 30.6 27.5 - 32.1 pg [facility] Mean Cell Hemoglobin Concentration 34.2 32.0 - 35.7 gm/dL [facility] Platelet 100(L) 145 - 357 x10(3)/mc L [facility] RDW Standard Deviation 53.7(H) 36.0 - 45.0 fL [facility] RDW coefficient of variation 16.6(H) 11.4 - 13.8 % [facility] Mean Platelet Volume 8.9 7.6 - 12.9 fL [facility] NRBC% auto 0.0 % [facility] NRBC Absolute 0.000 0.000 - 0.000 x10(3)/mc L [facility] Blood specimen (specimen) 04/09/2018 3:05 AM EDT 04/09/2018 3:13 AM EDT Narrative Resulting Agency Comment Spec In Lab Apple Gutierrez MD HEMATOLOGY ORDERABLE S [facility] [place] [address] * (ABNORMAL) Basic Metabolic Panel (non-fasting) (04/09/2018 3:05 AM EDT) Glucose 122 65 - 199 mg/dL [facility] Comment:Diabetes: >=200 mg/d L plus symptoms Blood Urea Nitrogen 44(H) 10 - 20 mg/dL [facility] Creatinine 3.00(H) 0.80 - 1.50 mg/dL [facility] Sodium 146(H) 135 - 145 mmol/L [facility] Potassium 4.9 3.5 - 5.0 mmol/L [facility] Comment: Please note: ??Patients with WBC >100,000 may have falsely elevated Potassium levels. ??For accurate Potassium quantification in these patients send serum separator tube (gold top) for subsequent determinations. ??Contact the Clinical Chemistry Laboratory if there are any questions. Chloride 110(H) 98 - 107 mmol/L [facility] Carbon Dioxide 21(L) 22 - 31 mmol/L [facility] Anion Gap 15 5 - 15 mmol/L [facility] Calcium 7.7(L) 8.5 - 10.5 mg/dL [facility] Est Glomerular Filtration Rate 22(L) >=60 mL/min/1. 73 m?? [facility] Comment: The eGFR was calculated using the CKD-EPI equation. As with all creatinine based estimates of kidney function, eGFR values calculated with the CKD-EPI equation are not accurate in patients with acute kidney failure, extremes of body mass or the acutely ill. http://Styleh[employer]/[facility] eGFR 26(L) >=60 mL/min/1. 73 m?? [facility] Comment: The eGFR was calculated using the CKD-EPI equation. As with all creatinine based estimates of kidney function, eGFR values calculated with the CKD-EPI equation are not accurate in patients with acute kidney failure, extremes of body mass or the acutely ill. [email or web address] Blood specimen (specimen) 04/09/2018 3:05 AM EDT 04/09/2018 3:13 AM EDT Narrative Resulting Agency Comment Spec In Lab Hay Sparks MD CHEMISTRY ORDERABLES Performing Organization Address City/[facility]/ZIP Co de Phone Number [facility] [place] [address] * Lavender Tube HOLD (04/08/2018 8:10 PM EDT) Lavender Hold Sample in lab. [facility] Blood specimen (specimen) Venous Draw / Unknown 04/08/2018 8:10 PM EDT 04/08/2018 8:26 PM EDT John Rose MD HEMATOLOGY ORDERABLE S [facility] [place] [address] * (ABNORMAL) Phenytoin level, total and free (04/08/2018 8:10 PM EDT) Phenytoin 7.3(L) 10.0 - 20.0 mg/L [facility] Comment: Theraputic range: ??10-20 mg/L Toxic: ??> 25 mg/L Patients with renal dysfunction (e.g.creatinine clearance < 30 mls/min) may show falsely elevated results due to accumulation of metabolites in renal failure Phenytoin, Free 0.95(L) 1.00 - 2.00 mg/L [facility] Comment: Therapeutic range: ? Free phenytoin: ??1.00-2.00 mg/L ? % Free phenytoin: ??8-12% Toxic range: ? Free phenytoin: ??>3.00 mg/L This test was developed and its performance characteristics determined by [facility]. It has not been cleared or approved by the FDA. The laboratory is regulated under CLIA as qualified to perform high-complexity testing. This test is used for clinical purposes. It should not be regarded as investigational or for research. Phenyt Free % 13(H) 8 - 12 % [facility] Comment: This test was developed and its performance characteristics determined by [facility]. It has not been cleared [...] In Lab Lida Peter MD CHEMISTRY ORDERABLES [facility] [place] [address] * Transfuse RBC (04/08/2018 4:59 PM EDT) Lida Peter MD NURSING TREATMENT OR DERABLES - BLOOD ADMIN * Transfuse RBC (04/08/2018 4:59 PM EDT) Lida Peter MD NURSING TREATMENT OR DERABLES - BLOOD ADMIN * EEG awake, asleep, drowsy, routine (04/08/2018 3:45 PM EDT) Narrative Beth Colunga - 04/08/2018 3:45 PM EDT Beth Colunga ? 04/08/2018 ??3:45 PM [facility] Department of Neurology In Patient Routine [...] mg ??0.3 mL Subcutaneous Once PRN Natalya Minaay MD ? acetaminophen (TYLENOL) tablet 1,000 mg [...] electroencephalogram was performed in the [facility] Clinical Neurophysiology Laboratory. The 10/20 international system of electrode placement was used and bipolar and referential electrode montages were recorded. ??In addition to EEG the patient was monitored for EKG and lateral/vertical eye movements. Video was recorded during the session. The duration of the recording was 30 minutes. ELECTRON BEAM WELDER SETTER'S REPORT: Performed by: AT Patient was not sleep deprived. Sleep was not attained. Photic stimulation was performed. Hyperventilation was not performed. Effort was was not adequate. Movement and other artifact was not significant. Comments: none Lida Peter MD NEUROLOGY ORDERABLES * Carotid Duplex, Bilateral (04/08/2018 2:49 PM EDT) VB Text Report Department: Vascular Surgery Lab Patient: [id number] (ARNOL, CHRISTY) CPT: 81965 ICD10: I63.9 Referring Physician: LIDA PETER ?? [...] Peter MD VASCULAR ORDERABLES Performing Organization Address [facility] Co de Phone Number [facility] * (ABNORMAL) Levetiracetam level (04/08/2018 1:55 PM EDT) Levetiracetam Lvl (NOVEMBER) 47.4(H) 12.0 - 46.0 mcg/mL [facility] Comment: ADDITIONAL INFORMATION This test was developed and its performance characteristics determined by [facility] in a manner consistent with CLIA requirements. This test has not been cleared or approved by the U.S. Food and Drug Administration. Test Performed by: [facility] [address] [address] Blood specimen (specimen) 04/08/2018 1:55 PM EDT 04/08/2018 3:54 PM EDT Narrative Resulting Agency Comment Spec In Lab Lida Peter MD LAB SEND OUT ORDERAB LES Performing Organization Address [facility] Co de Phone Number [facility] [place] [address] * Prepare RBC (04/08/2018 11:15 AM EDT) Dispensed? No [facility] Blood specimen (specimen) 04/08/2018 11:15 AM EDT 04/08/2018 11:11 AM EDT Lida Peter MD BLOOD BANK PRODUCT O RDERABLES Performing Organization Address [facility]/ZIP Co de Phone Number [facility] [place] [address] * Prepare RBC (04/08/2018 11:15 AM EDT) Dispensed? Yes [facility] Blood specimen (specimen) 04/08/2018 11:15 AM EDT 04/08/2018 11:11 AM EDT Lida Peter MD BLOOD BANK PRODUCT O RDERABLES Performing Organization Address [facility]/ZIP Co de Phone Number [facility] [place] [address] * (ABNORMAL) APTT (04/08/2018 10:45 AM EDT) Partial Thromboplastin Time 38(H) 25 - 37 sec [facility] Comment: The PTT is NOT appropriate for heparin monitoring. Use the Anti-Xa level for heparin monitoring (HEP UFH) or LMWH monitoring (HEP LMW). A PTT less than 37 seconds generally indicates adequate hemostasis. Blood specimen (specimen) 04/08/2018 10:45 AM EDT 04/08/2018 10:55 AM EDT Narrative Resulting Agency Comment Spec In Lab Lida Peter MD HEMATOLOGY ORDERABLE S Performing Organization Address [facility] Co de Phone Number [facility] [place] [address] * (ABNORMAL) Prothrombin Time (04/08/2018 10:45 AM EDT) Prothrombin Time 51.2(H) 9.4 - 12.5 sec [facility] International Normalization Ratio 4.5 [facility] Comment: An INR <2.0 indicates [...] [facility]/ZIP Co de Phone Number [facility] [place] [address] * (ABNORMAL) CK (04/08/2018 10:45 AM EDT) Creatine Kinase 646(H) 0 - 200 unit/L [facility] Blood specimen (specimen) 04/08/2018 10:45 AM EDT 04/08/2018 10:55 AM EDT Narrative Resulting Agency Comment Spec In Lab Lida Peter MD CHEMISTRY ORDERABLES Performing Organization Address [facility] Co de Phone Number [facility] [place] [address] * (ABNORMAL) Hemoglobin and Hematocrit, blood (04/08/2018 10:45 AM EDT) Hemoglobin 7.2(L) 13.7 - 16.5 gm/dL [facility] Hematocrit 21.3(L) 40.5 - 48.5 % [facility] Blood specimen (specimen) 04/08/2018 10:45 AM EDT 04/08/2018 10:55 AM EDT Narrative Resulting Agency Comment Spec In Lab Lida Peter MD HEMATOLOGY ORDERABLE S Performing Organization Address City/[facility]/ZIP Co de Phone Number [facility] [place] [address] * Tacrolimus level (04/08/2018 8:30 AM EDT) Tacrolimus 2.1 ng/mL [facility] Comment: Trough therapeutic: ??5-15 ng/mL Performed by ultra-performance liquid chromatography tandem mass spectrometry (UPLCMS/MS). This test was developed and its performance characteristics determined by [facility]. It has not been cleared [...] Peter MD CHEMISTRY ORDERABLES Performing Organization Address [facility]/ZIP Co de Phone Number [facility] [place] [address] * Prepare RBC (04/08/2018 4:55 AM EDT) Dispensed? Yes [facility] Blood specimen (specimen) 04/08/2018 4:55 AM EDT 04/08/2018 4:59 AM EDT Lida Peter MD BLOOD BANK PRODUCT O RDERABLES Performing Organization Address [facility] Co de Phone Number [facility] [place] [address] * Blue Tube HOLD (04/08/2018 4:05 AM EDT) Blue Hold Sample in lab. [facility] Blood specimen (specimen) Venous Draw / Unknown 04/08/2018 4:05 AM EDT 04/08/2018 4:21 AM EDT Apple Gutierrez MD HEMATOLOGY ORDERABLE S Performing Organization Address [facility]/[place] [address] * (ABNORMAL) Differential, Automated (04/08/2018 4:05 AM EDT) Neutrophil % 81.8 % [facility] Neutrophil Absolute 7.13(H) 1.70 - 6.10 x10(3)/mc L [facility] Lymph % 8.0 % [facility] Lymphocytes Abs 0.7(L) 0.9 - 3.2 x10(3)/[facility] LABORATORY Monocyte % 7.9 % [facility] Monocyte Abs 0.7 0.3 - 0.9 x10(3)/[facility] LABORATORY Eos % 1.8 % [facility] Eosinophils Abs 0.2 0.0 - 0.4 x10(3)/[facility] LABORATORY Basophil % 0.2 % [facility] Baso Absolute 0.0 0.0 - 0.1 x10(3)/[facility] LABORATORY Immature Gran % 0.30 % [facility] Comment: Immature granulocytes(IG's)percentage and absolute count will include metamyelocytes, myelocytes, and promyelocytes. Blood smears from CBCs yielding IG's will be scanned manually for concordance. If this scan disagrees with the automated IG or if promyelocytes are noted, a manual differential will be performed. Immature Gran Absolute 0.03 0.00 - 0.04 x10(3)/[facility] LABORATORY Blood specimen (specimen) 04/08/2018 4:05 AM EDT 04/08/2018 4:21 AM EDT Narrative Resulting Agency Comment Spec In Lab Apple Gutierrez MD HEMATOLOGY ORDERABLE S [facility] [place] [address] * (ABNORMAL) Hemogram (04/08/2018 4:05 AM EDT) White Blood Cell 8.7 4.0 - 9.5 x10(3)/[facility] LABORATORY Red Blood Cell 2.26(L) 4.58 - 5.54 x10(6)/[facility] LABORATORY Hemoglobin 6.8(L) 13.7 - 16.5 gm/dL [facility] Hematocrit 20.4(L) 40.5 - 48.5 % [facility] Mean Cell Volume 90.3 82.9 - 93.1 fL [facility] Mean Cell Hemoglobin 30.1 27.5 - 32.1 pg [facility] Mean Cell Hemoglobin Concentration 33.3 32.0 - 35.7 gm/dL [facility] Platelet 94(L) 145 - 357 x10(3)/mc L [facility] RDW Standard Deviation 57.9(H) 36.0 - 45.0 fL [facility] RDW coefficient of variation 17.7(H) 11.4 - 13.8 % [facility] Mean Platelet Volume 9.7 7.6 - 12.9 [facility] LABORATORY NRBC% auto 0.0 % [facility] NRBC Absolute 0.000 0.000 - 0.000 x10(3)/mc L [facility] Blood specimen (specimen) 04/08/2018 4:05 AM EDT 04/08/2018 4:21 AM EDT Narrative Resulting Agency Comment Spec In Lab Apple Gutierrez MD HEMATOLOGY ORDERABLE S [facility] [place] [address] * (ABNORMAL) Basic Metabolic Panel (non-fasting) (04/08/2018 4:05 AM EDT) Glucose 120 65 - 199 mg/dL [facility] Comment:Diabetes: >=200 mg/d L plus symptoms Blood Urea Nitrogen 47(H) 10 - 20 mg/dL [facility] Creatinine 2.93(H) 0.80 - 1.50 mg/dL [facility] Sodium 144 135 - 145 mmol/L [facility] Potassium 5.4(H) 3.5 - 5.0 mmol/L [facility] Comment: Please note: ??Patients with WBC >100,000 may have falsely elevated Potassium levels. ??For accurate Potassium quantification in these patients send serum separator tube (gold top) for subsequent determinations. ??Contact the Clinical Chemistry Laboratory if there are any questions. Chloride 115(H) 98 - 107 mmol/L [facility] Carbon Dioxide 16(L) 22 - 31 mmol/L [facility] Anion Gap 13 5 - 15 mmol/L [facility] Calcium 7.1(L) 8.5 - 10.5 mg/dL [facility] Comment:result rechecked-KS Est Glomerular Filtration Rate 23(L) >=60 mL/min/1. 73 m?? [facility] Comment: The eGFR was calculated using the CKD-EPI equation. As with all creatinine based estimates of kidney function, eGFR values calculated with the CKD-EPI equation are not accurate in patients with acute kidney failure, extremes of body mass or the acutely ill. http://[employer]/[facility] eGFR 26(L) >=60 mL/min/1. 73 m?? [facility] Comment: The eGFR was calculated using the CKD-EPI equation. As with all creatinine based estimates of kidney function, eGFR values calculated with the CKD-EPI equation are not accurate in patients with acute kidney failure, extremes of body mass or the acutely ill. [email or web address] Blood specimen (specimen) 04/08/2018 4:05 AM EDT 04/08/2018 4:21 AM EDT Narrative Resulting Agency Comment Spec In Lab Hay Sparks MD CHEMISTRY ORDERABLES [facility] [place] [address] * MRI Brain wo Contrast (04/07/2018 9:11 [...] thoracic and lumbar spine were performed at [facility] on 04/06/2018. COMPARISON: CT chest [...] thoracic and lumbar spine were performed at [facility] on 04/06/2018. COMPARISON: CT chest [...] Glucose, POC 136 65 - 199 mg/dL [facility] Comment: Supplemental ranges: <140 mg/dL before meals <180 mg/dL all other times of the day Blood specimen (specimen) 04/07/2018 5:56 AM EDT 04/07/2018 5:56 AM EDT Lida Peter MD POINT OF CARE TEST O RDERABLES [facility] [place] [address] * (ABNORMAL) Cardiac Enzymes (LEB/CGP) (04/07/2018 5:55 AM EDT) Troponin-T 0.15(H) 0.00 - 0.00 ng/mL [facility] Comment: The 99th percentile for Troponin T is less than 0.01 ng/mL, any detectable cTnT concentration using this assay should be considered elevated. According to the third universal definition of myocardial infarction the following criteria with a clinical presentation consistent with acute myocardial ischemia meets the diagnosis for a myocardial infarction (AL). Detection of a rise and/or fall of cTnT, with at least one value greater than the 99th percentile (> or = 0.01) and with at least one of the following ?? Symptoms of ischemia ?? New or presumed new significant [id number] wave (ST-T) changes or new left bundle [...] additional sample may be indicated. Reference: Third [place] Definition of Myocardial Infarction. Journal of the [place] [employer] 2012;60:1581-98 Creatine Kinase 700(H) 0 - 200 unit/L [facility] Blood specimen (specimen) 04/07/2018 5:55 AM EDT 04/07/2018 6:34 AM EDT Narrative Resulting Agency Comment Spec In Lab Lida Peter MD CHEMISTRY ORDERABLES Performing Organization Address [facility]/ZIP Co de Phone Number [facility] [place] [address] * (ABNORMAL) CK (04/07/2018 5:55 AM EDT) Creatine Kinase 699(H) 0 - 200 unit/L [facility] Blood specimen (specimen) 04/07/2018 5:55 AM EDT 04/07/2018 6:03 AM EDT Narrative Resulting Agency Comment Spec In Lab Lida Peter MD CHEMISTRY ORDERABLES Performing Organization Address City/[facility]/ZIP Co de Phone Number [facility] [place] [address] * (ABNORMAL) Hemoglobin and Hematocrit, blood (04/07/2018 5:55 AM EDT) Hemoglobin 7.2(L) 13.7 - 16.5 gm/dL [facility] Hematocrit 21.2(L) 40.5 - 48.5 % [facility] Blood specimen (specimen) 04/07/2018 5:55 AM EDT 04/07/2018 6:03 AM EDT Narrative Resulting Agency Comment Spec In Lab Lida Peter MD HEMATOLOGY ORDERABLE S [facility] [place] [address] * Lactate, whole blood, send to lab (Leb/CGP) (04/07/2018 5:55 AM EDT) Pathologist [facility] Lactate WB 1.2 0.5 - 2.2 mmol/L [facility] Blood specimen (specimen) 04/07/2018 5:55 AM EDT 04/07/2018 6:03 AM EDT Narrative Resulting Agency Comment Spec In Lab Lida Peter MD CHEMISTRY ORDERABLES Performing Organization Address [facility]/ZIP Co de Phone Number [facility] [place] [address] * (ABNORMAL) Basic Metabolic Panel (non-fasting) (04/07/2018 4:30 AM EDT) [facility] Glucose 124 65 - 199 mg/dL [facility] Comment:Diabetes: >=200 mg/d L plus symptoms Blood Urea Nitrogen 50(H) 10 - 20 mg/dL [facility] Creatinine 2.68(H) 0.80 - 1.50 mg/dL [facility] Sodium 143 135 - 145 mmol/L [facility] Potassium 5.4(H) 3.5 - 5.0 mmol/L [facility] Comment: Please note: ??Patients with WBC >100,000 may have falsely elevated Potassium levels. ??For accurate Potassium quantification in these patients send serum separator tube (gold top) for subsequent determinations. ??Contact the Clinical Chemistry Laboratory if there are any questions. Chloride 116(H) 98 - 107 mmol/L [facility] Carbon Dioxide 16(L) 22 - 31 mmol/L [facility] Anion Gap 11 5 - 15 mmol/L [facility] Calcium 7.0(L) 8.5 - 10.5 mg/dL [facility] Est Glomerular Filtration Rate 25(L) >=60 mL/min/1. 73 m?? [facility] Comment: The eGFR was calculated using the CKD-EPI equation. As with all creatinine based estimates of kidney function, eGFR values calculated with the CKD-EPI equation are not accurate in patients with acute kidney failure, extremes of body mass or the acutely ill. http://[employer]/[facility] eGFR 29(L) >=60 mL/min/1. 73 m?? [facility] Comment: The eGFR was calculated using the CKD-EPI equation. As with all creatinine based estimates of kidney function, eGFR values calculated with the CKD-EPI equation are not accurate in patients with acute kidney failure, extremes of body mass or the acutely ill. [email or web address] Blood specimen (specimen) 04/07/2018 4:30 AM EDT 04/07/2018 4:34 AM EDT Narrative Resulting Agency Comment Spec In Lab Lida Peter MD CHEMISTRY ORDERABLES Performing Organization Address [facility] Co de Phone Number [facility] [place] [address] * POCT Glucose (04/07/2018 3:35 AM EDT) Pathologist [facility] Glucose, POC 131 65 - 199 mg/dL [facility] Comment: Supplemental ranges: <140 mg/dL before meals <180 mg/dL all other times of the day Blood specimen (specimen) 04/07/2018 3:35 AM EDT 04/07/2018 3:35 AM EDT Lida Peter MD POINT OF CARE TEST O RDERABLES Performing Organization Address [facility] Co de Phone Number [facility] [place] [address] * Lactate, whole blood, send to lab (Leb/CGP) (04/07/2018 12:15 AM EDT) Pathologist [facility] Lactate WB 1.5 0.5 - 2.2 mmol/L [facility] Blood specimen (specimen) 04/07/2018 12:15 AM EDT 04/07/2018 12:21 AM EDT Narrative Resulting Agency Comment Spec In Lab Lida Peter MD CHEMISTRY ORDERABLES Performing Organization Address [facility]/ZIP Co de Phone Number [facility] [place] [address] * (ABNORMAL) CK (04/07/2018 12:15 AM EDT) Creatine Kinase 608(H) 0 - 200 unit/L [facility] Comment:result rechecked-RR Blood specimen (specimen) 04/07/2018 12:15 AM EDT 04/07/2018 12:21 AM EDT Narrative Resulting Agency Comment Spec In Lab Lida Peter MD CHEMISTRY ORDERABLES Performing Organization Address [facility]/ZIP Co de Phone Number [facility] [place] [address] * (ABNORMAL) Hemoglobin and Hematocrit, blood (04/07/2018 12:15 AM EDT) Hemoglobin 7.9(L) 13.7 - 16.5 gm/dL [facility] Hematocrit 23.1(L) 40.5 - 48.5 % [facility] Blood specimen (specimen) 04/07/2018 12:15 AM EDT 04/07/2018 12:21 AM EDT Narrative Resulting Agency Comment Spec In Lab Lida Peter MD HEMATOLOGY ORDERABLE S Performing Organization Address [facility]/ZIP Co de Phone Number [facility] [place] [address] * (ABNORMAL) Basic Metabolic Panel (non-fasting) (04/07/2018 12:15 AM EDT) Glucose 167 65 - 199 mg/dL [facility] Comment:Diabetes: >=200 mg/d L plus symptoms Blood Urea Nitrogen 48(H) 10 - 20 mg/dL [facility] Creatinine 2.58(H) 0.80 - 1.50 mg/dL [facility] Sodium 143 135 - 145 mmol/L [facility] Potassium 6.1(Criti constance) 3.5 - 5.0 mmol/L [facility] Comment: Called by: RUPINDER, Read back by: EVELIN CALLEJAS, Date/Time:04/07/18 01:06. Please note: ??Patients with WBC >100,000 may have falsely elevated Potassium levels. ??For accurate Potassium quantification in these patients send serum separator tube (gold top) for subsequent determinations. ??Contact the Clinical Chemistry Laboratory if there are any questions. Chloride 117(H) 98 - 107 mmol/L [facility] Carbon Dioxide 15(L) 22 - 31 mmol/L [facility] Anion Gap 11 5 - 15 mmol/L [facility] Calcium 6.8(Criti constance) 8.5 - 10.5 mg/dL [facility] Comment:Called by: RUPINDER, Read back by: EVELIN CALLEJAS, Date/Time:04/07/18 01:06. Est Glomerular Filtration Rate 27(L) >=60 mL/min/1. 73 m?? [facility] Comment: The eGFR was calculated using the CKD-EPI equation. As with all creatinine based estimates of kidney function, eGFR values calculated with the CKD-EPI equation are not accurate in patients with acute kidney failure, extremes of body mass or the acutely ill. [email or web address] eGFR 31(L) >=60 mL/min/1. 73 m?? [facility] Comment: The eGFR was calculated using the CKD-EPI equation. As with all creatinine based estimates of kidney function, eGFR values calculated with the CKD-EPI equation are not accurate in patients with acute kidney failure, extremes of body mass or the acutely ill. [email or web address] Blood specimen (specimen) 04/07/2018 12:15 AM EDT 04/07/2018 12:21 AM EDT Narrative Resulting Agency Comment Spec In Lab Lida Peter MD CHEMISTRY ORDERABLES Performing Organization Address [facility] Co de Phone Number [facility] [place] [address] * POCT Glucose (04/06/2018 8:30 PM EDT) Glucose, POC 177 65 - 199 mg/dL [facility] Comment: Supplemental ranges: <140 mg/dL before meals <180 mg/dL all other times of the day Blood specimen (specimen) 04/06/2018 8:30 PM EDT 04/06/2018 8:30 PM EDT Lida Peter MD POINT OF CARE TEST O RDERABLES Performing Organization Address [facility] Co de Phone Number [facility] [place] [address] * Request For 2nd Read CT Chest [...] the chest, abdomen, and pelvis performed at [facility] on 04/06/2018. 5 mm and 1 [...] Spleen: Normal. Kidneys/Adrenals: The RIGHT and LEFT [place] kidneys are severely atrophic. The patient status [...] Spleen: Normal. Kidneys/Adrenals: The RIGHT and LEFT [place] kidneys are severely atrophic.The patient status post [...] 5:40 PM EDT) Neutrophil % 85.6 % [facility] Neutrophil Absolute 7.32(H) 1.70 - 6.10 x10(3)/mc L [facility] Lymph % 4.8 % [facility] Lymphocytes Abs 0.4(L) 0.9 - 3.2 x10(3)/mc L [facility] Monocyte % 9.1 % [facility] Monocyte Abs 0.8 0.3 - 0.9 x10(3)/mc L [facility] Eos % 0.0 % [facility] Eosinophils Abs 0.0 0.0 - 0.4 x10(3)/mc L [facility] Basophil % 0.0 % [facility] Baso Absolute 0.0 0.0 - 0.1 x10(3)/mc L [facility] Immature Gran % 0.50 % [facility] Comment: Immature granulocytes(IG's)percentage and absolute count will include metamyelocytes, myelocytes, and promyelocytes. Blood smears from CBCs yielding IG's will be scanned manually for concordance. If this scan disagrees with the automated IG or if promyelocytes are noted, a manual differential will be performed. Immature Gran Absolute 0.04 0.00 - 0.04 x10(3)/[facility] Blood specimen (specimen) 04/06/2018 5:40 PM EDT 04/06/2018 6:01 PM EDT Narrative Resulting Agency Comment Spec In Lab Natalya Minaya MD HEMATOLOGY ORDERABLE S [facility] [place] [address] * (ABNORMAL) Hemogram (04/06/2018 5:40 PM EDT) White Blood Cell 8.6 4.0 - 9.5 x10(3)/[facility] Red Blood Cell 2.56(L) 4.58 - 5.54 x10(6)/[facility] Hemoglobin 7.8(L) 13.7 - 16.5 gm/dL [facility] Hematocrit 23.1(L) 40.5 - 48.5 % [facility] Mean Cell Volume 90.2 82.9 - 93.1 fL [facility] Mean Cell Hemoglobin 30.5 27.5 - 32.1 pg [facility] Mean Cell Hemoglobin Concentration 33.8 32.0 - 35.7 gm/dL [facility] Platelet 95(L) 145 - 357 x10(3)/[facility] RDW Standard Deviation 53.6(H) 36.0 - 45.0 [facility] RDW coefficient of variation 16.6(H) 11.4 - 13.8 % [facility] Mean Platelet Volume 9.5 7.6 - 12.9 fL [facility] NRBC% auto 0.0 % [facility] NRBC Absolute 0.000 0.000 - 0.000 x10(3)/[facility] Blood specimen (specimen) 04/06/2018 5:40 PM EDT 04/06/2018 6:01 PM EDT Narrative Resulting Agency Comment Spec In Lab Natalya Minaya MD HEMATOLOGY ORDERABLE S Performing Organization Address [facility] Co de Phone Number [facility] [place] [address] * Phosphorus (04/06/2018 5:40 PM EDT) Phosphorus 3.3 2.5 - 4.5 mg/dL [facility] Blood specimen (specimen) 04/06/2018 5:40 PM EDT 04/06/2018 6:01 PM EDT Narrative Resulting Agency Comment Spec In Lab Lida Peter MD CHEMISTRY ORDERABLES Performing Organization Address [facility] Phone Number [facility] [place] [address] * (ABNORMAL) Magnesium (04/06/2018 5:40 PM EDT) [facility] Magnesium 0.60(L) 0.69 - 1.07 mmol/L [facility] Blood specimen (specimen) 04/06/2018 5:40 PM EDT 04/06/2018 6:01 PM EDT Narrative Resulting Agency Comment Spec In Lab Lida Peter MD CHEMISTRY ORDERABLES Performing Organization Address [facility] de Phone Number [facility] [place] [address] * (ABNORMAL) Cardiac Enzymes (LEB/CGP) (04/06/2018 5:40 PM EDT) Pathologist [facility] Troponin-T 0.20(H) 0.00 - 0.00 ng/mL [facility] Comment: The 99th percentile for Troponin T is less than 0.01 ng/mL, any detectable cTnT concentration using this assay should be considered elevated. According to the third universal definition of myocardial infarction the following criteria with a clinical presentation consistent with acute myocardial ischemia meets the diagnosis for a myocardial infarction (AL). Detection of a rise and/or fall of cTnT, with at least one value greater than the 99th percentile (> or = 0.01) and with at least one of the following ?? Symptoms of ischemia ?? New or presumed new significant HE-hqnxcds-I wave (ST-T) changes or new left bundle [...] additional sample may be indicated. Reference: Third [place] Definition of Myocardial Infarction. Journal of the [place] [employer] 2012;60:1581-98 Creatine Kinase 249(H) 0 - 200 unit/L [facility] Blood specimen (specimen) 04/06/2018 5:40 PM EDT 04/06/2018 6:01 PM EDT Narrative Resulting Agency Comment Spec In Lab Lida Peter MD CHEMISTRY ORDERABLES [facility] [place] [address] * (ABNORMAL) CMP w/fasting Glucose (04/06/2018 5:40 PM EDT) Glucose Fasting 140(H) 65 - 99 mg/dL [facility] [...] of Diabetes Mellitus, Position Statement from the [place] [employer]. ??Diabetes Care, Volume 33, Supplement 1, Jul 2009 Blood Urea Nitrogen 45(H) 10 - 20 mg/dL [facility] Creatinine 2.48(H) 0.80 - 1.50 mg/dL [facility] Sodium 145 135 - 145 mmol/L [facility] Potassium 5.2(H) 3.5 - 5.0 mmol/L [facility] Comment: Please note: ??Patients with WBC >100,000 may have falsely elevated Potassium levels. ??For accurate Potassium quantification in these patients send serum separator tube (gold top) for subsequent determinations. ??Contact the Clinical Chemistry Laboratory if there are any questions. Chloride 118(H) 98 - 107 mmol/L [facility] Carbon Dioxide 16(L) 22 - 31 mmol/L [facility] Anion Gap 11 5 - 15 mmol/L [facility] Calcium 6.7(Criti constance) 8.5 - 10.5 mg/dL [facility] Comment:Calcium not critical when adjusted for albumin concentration. Protein, Total 4.3(L) 6.1 - 8.0 gm/dL [facility] Albumin 2.3(L) 3.2 - 5.2 gm/dL [facility] Aspartate Aminotransferase 22 0 - 39 unit/L [facility] Alanine Aminotransferase 20 0 - 55 unit/L [facility] Alkaline Phosphatase 57 40 - 120 unit/L [facility] Bilirubin, Total 0.3 0.2 - 1.3 mg/dL [facility] Est Glomerular Filtration Rate 28(L) >=60 mL/min/1. 73 m?? [facility] Comment: The eGFR was calculated using the CKD-EPI equation. As with all creatinine based estimates of kidney function, eGFR values calculated with the CKD-EPI equation are not accurate in patients with acute kidney failure, extremes of body mass or the acutely ill. [email or web address]/[facility] eGFR 32(L) >=60 mL/min/1. 73 m?? [facility] Comment: The eGFR was calculated using the CKD-EPI equation. As with all creatinine based estimates of kidney function, eGFR values calculated with the CKD-EPI equation are not accurate in patients with acute kidney failure, extremes of body mass or the acutely ill. [email or web address] Blood specimen (specimen) 04/06/2018 5:40 PM EDT 04/06/2018 6:01 PM EDT Narrative Resulting Agency Comment Spec In Lab Lida Peter MD CHEMISTRY ORDERABLES Performing Organization Address [facility] Co de Phone Number [facility] [place] [address] * APTT (04/06/2018 5:40 PM EDT) Partial Thromboplastin Time 30 25 - 37 sec [facility] Comment: The PTT is NOT appropriate for heparin monitoring. Use the Anti-Xa level for heparin monitoring (HEP UFH) or LMWH monitoring (HEP LMW). A PTT less than 37 seconds generally indicates adequate hemostasis. Blood specimen (specimen) 04/06/2018 5:40 PM EDT 04/06/2018 6:01 PM EDT Narrative Resulting Agency Comment Spec In Lab Lida Peter MD HEMATOLOGY ORDERABLE S Performing Organization Address [facility] Co de Phone Number [facility] [place] [address] * (ABNORMAL) Prothrombin Time (04/06/2018 5:40 PM EDT) Prothrombin Time 24.1(H) 9.4 - 12.5 sec [facility] International Normalization Ratio 2.2 [facility] Comment: An INR <2.0 indicates [...] Lab Lida Peter MD HEMATOLOGY ORDERABLE S [facility] [place] [address] * (ABNORMAL) BLOOD GAS 2 ARTERIAL (04/06/2018 5:24 PM EDT) pH, Arterial 7.29(Crit ical) 7.35 - 7.45 [facility] Comment:Noted by brass instrument repair technician. PCO2, Arterial 31(L) 35 - 45 mmHg [facility] PO2, Arterial 65(L) 85 - 104 mmHg [facility] Bicarbonate, Arterial 15.2(L) 20.0 - 26.0 mmol/L [facility] Base Excess, Arterial -11.8(L) -3.0 - 3.0 mmol/L [facility] Hgb Blood Gas 8.4(L) 13.7 - 16.5 gm/dL [facility] Oxyhemoglobin, Arterial 93.0(L) 94.0 - 97.0 % [facility] Carboxyhemoglo bin, Arterial 0.3 % [facility] Comment: Nonsmokers: 0.5-1.5% COHB Smokers: Variable, but usually less than 10% Toxic: 20-30% COHB Lethal: Greater than 60% COHB Methemoglobin, Arterial 0.9 <=1.5 % [facility] Na Whole Blood 140 135 - 145 mmol/L [facility] K Whole Blood 5.0 3.5 - 5.0 mmol/L [facility] Comment: Please note: Patients with WBC >100,000 may have falsely elevated Potassium levels. Contact the Clinical Chemistry Laboratory if there are any questions. ICa Whole Blood 1.03(L) 1.15 - 1.33 mmol/L [facility] Comment: Note: ??Total bilirubin higher than 20 mg/dL may lead to falsely low ionized calcium. CL Whole Blood 119(H) 98 - 107 mmol/L [facility] Gluc Whole Bld 141 65 - 199 mg/dL [facility] Comment:Diabetes: >=200 mg/d L plus symptoms. Lactate WB 2.4(H) 0.5 - 2.2 mmol/L [facility] FIO2 Art 50 % [facility] PF Ratio Art 130 [facility] Temp Art 34.8 Celsius [facility] Blood specimen (specimen) 04/06/2018 5:24 PM EDT 04/06/2018 5:24 PM EDT Lida Peter MD POINT OF CARE TEST O RDERAMARISOL Performing Organization Address [facility] Co de Phone Number [facility] [place] [address] * POCT Glucose (04/06/2018 5:10 PM EDT) Glucose, POC 147 65 - 199 mg/dL [facility] Comment: Supplemental ranges: <140 mg/dL before meals <180 mg/dL all other times of the day Blood specimen (specimen) 04/06/2018 5:10 PM EDT 04/06/2018 5:10 PM EDT Lida Peter MD POINT OF CARE TEST O RDERAMARISOL Performing Organization Address [facility]/ZIP Co de Phone Number [facility] [place] [address] * (ABNORMAL) BLOOD GAS 2 ARTERIAL (04/06/2018 4:04 PM EDT) pH, Arterial 7.27(Criti constance) 7.35 - 7.45 [facility] Comment:Noted by brass instrument repair technician. PCO2, Arterial 34(L) 35 - 45 mmHg [facility] PO2, Arterial 152(H) 85 - 104 mmHg [facility] Bicarbonate, Arterial 15.2(L) 20.0 - 26.0 mmol/L [facility] Base Excess, Arterial -11.8(L) -3.0 - 3.0 mmol/L [facility] Hgb Blood Gas 8.1(L) 13.7 - 16.5 gm/dL [facility] Oxyhemoglobin, Arterial 97.7(H) 94.0 - 97.0 % [facility] Carboxyhemoglob in, Arterial 0.5 % [facility] Comment: Nonsmokers: 0.5-1.5% COHB Smokers: Variable, but usually less than 10% Toxic: 20-30% COHB Lethal: Greater than 60% COHB Methemoglobin, Arterial 0.3 <=1.5 % [facility] Na Whole Blood 140 135 - 145 mmol/L [facility] K Whole Blood 4.6 3.5 - 5.0 mmol/L [facility] Comment: Please note: Patients with WBC >100,000 may have falsely elevated Potassium levels. Contact the Clinical Chemistry Laboratory if there are any questions. ICa Whole Blood 1.01(L) 1.15 - 1.33 mmol/L [facility] Comment: Note: ??Total bilirubin higher than 20 mg/dL may lead to falsely low ionized calcium. CL Whole Blood 118(H) 98 - 107 mmol/L [facility] Gluc Whole Bld 137 65 - 199 mg/dL [facility] Comment:Diabetes: >=200 mg/d L plus symptoms. Lactate WB 3.1(H) 0.5 - 2.2 mmol/L [facility] Blood specimen (specimen) 04/06/2018 4:04 PM EDT 04/06/2018 4:04 PM EDT iLda Peter MD POINT OF CARE TEST O RDERABLES [facility] [place] [address] * Scan, Peripheral Blood (04/06/2018 3:53 PM EDT) Pathologist [facility] Plat estimate Decreased [facility] RBC Morphology Abnormal [facility] Ovalocytes 1-5 /HPF [facility] Yovanny Cells 1-5 /HPF [facility] Blood specimen (specimen) 04/06/2018 3:53 PM EDT 04/06/2018 4:05 PM EDT Narrative Resulting Agency Comment Spec In Lab Lida Peter MD HEMATOLOGY ORDERABLE S [facility] [place] [address] * (ABNORMAL) Differential, Automated (04/06/2018 3:53 PM EDT) Pathologist [facility] Neutrophil % 80.4 % [facility] Neutrophil Absolute 8.28(H) 1.70 - 6.10 x10(3)/mc L [facility] Lymph % 6.8 % [facility] Lymphocytes Abs 0.7(L) 0.9 - 3.2 x10(3)/mc L [facility] Monocyte % 11.9 % [facility] Monocyte Abs 1.2(H) 0.3 - 0.9 x10(3)/mc L [facility] Eos % 0.0 % [facility] Eosinophils Abs 0.0 0.0 - 0.4 x10(3)/mc L [facility] Basophil % 0.1 % [facility] Baso Absolute 0.0 0.0 - 0.1 x10(3)/mc L [facility] Immature Gran % 0.80 % [facility] Comment: Immature granulocytes(IG's)percentage and absolute count will include metamyelocytes, myelocytes, and promyelocytes. Blood smears from CBCs yielding IG's will be scanned manually for concordance. If this scan disagrees with the automated IG or if promyelocytes are noted, a manual differential will be performed. Immature Gran Absolute 0.08(H) 0.00 - 0.04 x10(3)/mc L [facility] Blood specimen (specimen) 04/06/2018 3:53 PM EDT 04/06/2018 4:05 PM EDT Narrative Resulting Agency Comment Spec In Lab Lida Peter MD HEMATOLOGY ORDERABLE S [facility] [place] [address] * (ABNORMAL) Hemogram (04/06/2018 3:53 PM EDT) White Blood Cell 10.3(H) 4.0 - 9.5 x10(3)/mc L [facility] Red Blood Cell 2.53(L) 4.58 - 5.54 x10(6)/ L [facility] Hemoglobin 7.7(L) 13.7 - 16.5 gm/dL [facility] Comment: This result has been called to MISAEL GRANT by Evon Woodard on 04 06 2018 at 1633, and has been read back. Hematocrit 23.2(L) 40.5 - 48.5 % [facility] Comment: This result has been called to MISAEL GRANT by Evon Woodard on 04 06 2018 at 1633, and has been read back. Mean Cell Volume 91.7 82.9 - 93.1 fL [facility] Mean Cell Hemoglobin 30.4 27.5 - 32.1 pg [facility] Mean Cell Hemoglobin Concentration 33.2 32.0 - 35.7 gm/dL [facility] Platelet 96(L) 145 - 357 x10(3)/mc L [facility] RDW Standard Deviation 53.3(H) 36.0 - 45.0 fL [facility] RDW coefficient of variation 16.2(H) 11.4 - 13.8 % [facility] Mean Platelet Volume 9.0 7.6 - 12.9 fL [facility] NRBC% auto 0.0 % [facility] NRBC Absolute 0.000 0.000 - 0.000 x10(3)/mc L [facility] Blood specimen (specimen) 04/06/2018 3:53 PM EDT 04/06/2018 4:05 PM EDT Narrative Resulting Agency Comment Spec In Lab Lida Peter MD HEMATOLOGY ORDERABLE S Performing Organization Address [facility] Co de Phone Number [facility] [place] [address] * APTT (04/06/2018 3:53 PM EDT) Partial Thromboplastin Time 30 25 - 37 sec [facility] Comment: The PTT is NOT appropriate for heparin monitoring. Use the Anti-Xa level for heparin monitoring (HEP UFH) or LMWH monitoring (HEP LMW). A PTT less than 37 seconds generally indicates adequate hemostasis. Blood specimen (specimen) 04/06/2018 3:53 PM EDT 04/06/2018 4:05 PM EDT Narrative Resulting Agency Comment Spec In Lab Lida Peter MD HEMATOLOGY ORDERABLE S Performing Organization Address [facility] de Phone Number [facility] [place] [address] * (ABNORMAL) Prothrombin Time (04/06/2018 3:53 PM EDT) Prothrombin Time 22.5(H) 9.4 - 12.5 sec [facility] Comment:Called by: luisa, Read back by: donn thomas, Date/Time:04/06/18 16:20. International Normalization Ratio 2.0 [facility] Comment: An INR <2.0 indicates [...] Lab Lida Peter MD HEMATOLOGY ORDERABLE S [facility] [place] [address] * (ABNORMAL) BLOOD GAS 2 ARTERIAL (04/06/2018 3:41 PM EDT) pH, Arterial 7.22(Criti constance) 7.35 - 7.45 [facility] Comment:Noted by brass instrument repair technician. PCO2, Arterial 39 35 - 45 mmHg [facility] PO2, Arterial 168(H) 85 - 104 mmHg [facility] Bicarbonate, Arterial 15.3(L) 20.0 - 26.0 mmol/L [facility] Base Excess, Arterial -12.4(L) -3.0 - 3.0 mmol/L [facility] Hgb Blood Gas 8.4(L) 13.7 - 16.5 gm/dL [facility] Oxyhemoglobin, Arterial 98.1(H) 94.0 - 97.0 % [facility] Carboxyhemoglob in, Arterial 0.2 % [facility] Comment: Nonsmokers: 0.5-1.5% COHB Smokers: Variable, but usually less than 10% Toxic: 20-30% COHB Lethal: Greater than 60% COHB Methemoglobin, Arterial 0.3 <=1.5 % [facility] Na Whole Blood 143 135 - 145 mmol/L [facility] K Whole Blood 4.6 3.5 - 5.0 mmol/L [facility] Comment: Please note: Patients with WBC >100,000 may have falsely elevated Potassium levels. Contact the Clinical Chemistry Laboratory if there are any questions. ICa Whole Blood 0.92(Criti constance) 1.15 - 1.33 mmol/L [facility] Comment: Noted by brass instrument repair technician. Note: ??Total bilirubin higher than 20 mg/dL may lead to falsely low ionized calcium. CL Whole Blood 119(H) 98 - 107 mmol/L [facility] Gluc Whole Bld 158 65 - 199 mg/dL [facility] Comment:Diabetes: >=200 mg/d L plus symptoms. Lactate WB 3.2(H) 0.5 - 2.2 mmol/L [facility] Blood specimen (specimen) 04/06/2018 3:41 PM EDT 04/06/2018 3:41 PM EDT Lida Peter MD POINT OF CARE TEST O RDERABLES [facility] [place] [address] * (ABNORMAL) BLOOD GAS 2 ARTERIAL (04/06/2018 3:13 PM EDT) pH, Arterial 7.18(Criti constance) 7.35 - 7.45 [facility] Comment:Noted by brass instrument repair technician. PCO2, Arterial 40 35 - 45 mmHg [facility] PO2, Arterial 228(H) 85 - 104 mmHg [facility] Bicarbonate, Arterial 14.8(L) 20.0 - 26.0 mmol/L [facility] Base Excess, Arterial -13.5(L) -3.0 - 3.0 mmol/L [facility] Hgb Blood Gas 9.4(L) 13.7 - 16.5 gm/dL [facility] Oxyhemoglobin, Arterial 98.3(H) 94.0 - 97.0 % [facility] Carboxyhemoglob in, Arterial 0.3 % [facility] Comment: Nonsmokers: 0.5-1.5% COHB Smokers: Variable, but usually less than 10% Toxic: 20-30% COHB Lethal: Greater than 60% COHB Methemoglobin, Arterial 0.3 <=1.5 % [facility] Na Whole Blood 141 135 - 145 mmol/L [facility] K Whole Blood 4.8 3.5 - 5.0 mmol/L [facility] Comment: Please note: Patients with WBC >100,000 may have falsely elevated Potassium levels. Contact the Clinical Chemistry Laboratory if there are any questions. ICa Whole Blood 1.12(L) 1.15 - 1.33 mmol/L [facility] Comment: Note: ??Total bilirubin higher than 20 mg/dL may lead to falsely low ionized calcium. CL Whole Blood 120(H) 98 - 107 mmol/L [facility] Gluc Whole Bld 125 65 - 199 mg/dL [facility] Comment:Diabetes: >=200 mg/d L plus symptoms. Lactate WB 2.8(H) 0.5 - 2.2 mmol/L [facility] Blood specimen (specimen) 04/06/2018 3:13 PM EDT 04/06/2018 3:13 PM EDT Lida Peter MD POINT OF CARE TEST O RDERABLES Performing Organization Address City/State/[facility] Co de Phone Number [facility] [place] [address] * (ABNORMAL) BLOOD GAS 2 ARTERIAL (04/06/2018 2:48 PM EDT) pH, Arterial 7.27(Criti constance) 7.35 - 7.45 [facility] Comment:Noted by brass instrument repair technician. PCO2, Arterial 36 35 - 45 mmHg [facility] PO2, Arterial 379(H) 85 - 104 mmHg [facility] Bicarbonate, Arterial 16.1(L) 20.0 - 26.0 mmol/L [facility] Base Excess, Arterial -10.8(L) -3.0 - 3.0 mmol/L [facility] Hgb Blood Gas 9.7(L) 13.7 - 16.5 gm/dL [facility] Oxyhemoglobin, Arterial 98.5(H) 94.0 - 97.0 % [facility] Carboxyhemoglob in, Arterial 0.3 % [facility] Comment: Nonsmokers: 0.5-1.5% COHB Smokers: Variable, but usually less than 10% Toxic: 20-30% COHB Lethal: Greater than 60% COHB Methemoglobin, Arterial 0.3 <=1.5 % [facility] Na Whole Blood 142 135 - 145 mmol/L [facility] K Whole Blood 5.4(H) 3.5 - 5.0 mmol/L [facility] Comment: Please note: Patients with WBC >100,000 may have falsely elevated Potassium levels. Contact the Clinical Chemistry Laboratory if there are any questions. ICa Whole Blood 1.10(L) 1.15 - 1.33 mmol/L [facility] Comment: Note: ??Total bilirubin higher than 20 mg/dL may lead to falsely low ionized calcium. CL Whole Blood 117(H) 98 - 107 mmol/L [facility] Gluc Whole Bld 185 65 - 199 mg/dL [facility] Comment:Diabetes: >=200 mg/d L plus symptoms. Lactate WB 1.9 0.5 - 2.2 mmol/L [facility] Blood specimen (specimen) 04/06/2018 2:48 PM EDT 04/06/2018 2:48 PM EDT Lida Peter MD POINT OF CARE TEST O RDERABLES [facility] [place] [address] * (ABNORMAL) BLOOD GAS 2 ARTERIAL (04/06/2018 2:46 PM EDT) pH, Arterial 7.27(Criti constance) 7.35 - 7.45 [facility] Comment:Noted by brass instrument repair technician. PCO2, Arterial 36 35 - 45 mmHg [facility] PO2, Arterial Not Perf 85 - 104 mmHg [facility] Bicarbonate, Arterial 16.2(L) 20.0 - 26.0 mmol/L [facility] Base Excess, Arterial -10.7(L) -3.0 - 3.0 mmol/L [facility] Hgb Blood Gas 9.3(L) 13.7 - 16.5 gm/dL [facility] Oxyhemoglobin, Arterial 98.9(H) 94.0 - 97.0 % [facility] Carboxyhemoglob in, Arterial 0.3 % [facility] Comment: Nonsmokers: 0.5-1.5% COHB Smokers: Variable, but usually less than 10% Toxic: 20-30% COHB Lethal: Greater than 60% COHB Methemoglobin, Arterial 0.3 <=1.5 % [facility] Na Whole Blood 143 135 - 145 mmol/L [facility] K Whole Blood 5.5(H) 3.5 - 5.0 mmol/L [facility] Comment: Please note: Patients with WBC >100,000 may have falsely elevated Potassium levels. Contact the Clinical Chemistry Laboratory if there are any questions. ICa Whole Blood 1.09(L) 1.15 - 1.33 mmol/L [facility] Comment: Note: ??Total bilirubin higher than 20 mg/dL may lead to falsely low ionized calcium. CL Whole Blood 118(H) 98 - 107 mmol/L [facility] Gluc Whole Bld 191 65 - 199 mg/dL [facility] Comment:Diabetes: >=200 mg/d L plus symptoms. Lactate WB 1.8 0.5 - 2.2 mmol/L [facility] Blood specimen (specimen) 04/06/2018 2:46 PM EDT 04/06/2018 2:46 PM EDT Lida Peter MD POINT OF CARE TEST O RDERABLES [facility] [place] [address] * (ABNORMAL) BLOOD GAS 2 ARTERIAL (04/06/2018 2:16 PM EDT) pH, Arterial 7.29(Criti constance) 7.35 - 7.45 [facility] Comment:Noted by brass instrument repair technician. PCO2, Arterial 38 35 - 45 mmHg [facility] PO2, Arterial 423(H) 85 - 104 mmHg [facility] Bicarbonate, Arterial 17.9(L) 20.0 - 26.0 mmol/L [facility] Base Excess, Arterial -8.6(L) -3.0 - 3.0 mmol/L [facility] Hgb Blood Gas 9.7(L) 13.7 - 16.5 gm/dL [facility] Oxyhemoglobin, Arterial 98.7(H) 94.0 - 97.0 % [facility] Carboxyhemoglob in, Arterial 0.3 % [facility] Comment: Nonsmokers: 0.5-1.5% COHB Smokers: Variable, but usually less than 10% Toxic: 20-30% COHB Lethal: Greater than 60% COHB Methemoglobin, Arterial 0.3 <=1.5 % [facility] Na Whole Blood 137 135 - 145 mmol/L [facility] K Whole Blood 6.5(Critic al) 3.5 - 5.0 mmol/L [facility] Comment: Noted by brass instrument repair technician. Please note: Patients with WBC >100,000 may have falsely elevated Potassium levels. Contact the Clinical Chemistry Laboratory if there are any questions. ICa Whole Blood 1.06(L) 1.15 - 1.33 mmol/L [facility] Comment: Note: ??Total bilirubin higher than 20 mg/dL may lead to falsely low ionized calcium. CL Whole Blood 117(H) 98 - 107 mmol/L [facility] Gluc Whole Bld 261(H) 65 - 199 mg/dL [facility] Comment:Diabetes: >=200 mg/d L plus symptoms. Lactate WB 1.1 0.5 - 2.2 mmol/L [facility] Blood specimen (specimen) 04/06/2018 2:16 PM EDT 04/06/2018 2:16 PM EDT Lida Peter MD POINT OF CARE TEST O RDERABLES Performing Organization Address [facility] Co de Phone Number [facility] [place] [address] * Anaerobic Culture (04/06/2018 2:15 PM EDT) Anaerobic Culture No anaerobic organisms isolated [facility] Fluid specimen (specimen) 04/06/2018 2:15 PM EDT 04/06/2018 2:34 PM EDT Comment:CULTURE LEFT ARM WOU ND Narrative Resulting Agency Comment Spec In Lab Lida Peter MD MICROBIOLOGY - GENER AL ORDERABLES Performing Organization Address [facility] Co de Phone Number [facility] [place] [address] * Body Fluid Culture, Aerobic (04/06/2018 2:15 PM EDT) Body Fluid Culture Few normal cutaneous shaina [facility] Gram Stain Few Neutrophils seen No microorganisms seen. [facility] Fluid specimen (specimen) 04/06/2018 2:15 PM EDT 04/06/2018 2:34 PM EDT Comment:CULTURE LEFT ARM WOU ND Narrative Resulting Agency Comment Spec In Lab Lida Peter MD MICROBIOLOGY - GENER AL ORDERABLES Performing Organization Address [facility] Co de Phone Number [facility] [place] [address] * (ABNORMAL) BLOOD GAS 2 ARTERIAL (04/06/2018 1:53 PM EDT) pH, Arterial 7.24(Criti constance) 7.35 - 7.45 [facility] Comment:Noted by brass instrument repair technician. PCO2, Arterial 38 35 - 45 mmHg [facility] PO2, Arterial 388(H) 85 - 104 mmHg [facility] Bicarbonate, Arterial 15.7(L) 20.0 - 26.0 mmol/L [facility] Base Excess, Arterial -11.8(L) -3.0 - 3.0 mmol/L [facility] Hgb Blood Gas 10.8(L) 13.7 - 16.5 gm/dL [facility] Oxyhemoglobin, Arterial 98.8(H) 94.0 - 97.0 % [facility] Carboxyhemoglob in, Arterial 0.3 % [facility] Comment: Nonsmokers: 0.5-1.5% COHB Smokers: Variable, but usually less than 10% Toxic: 20-30% COHB Lethal: Greater than 60% COHB Methemoglobin, Arterial 0.3 <=1.5 % [facility] Na Whole Blood 141 135 - 145 mmol/L [facility] K Whole Blood 6.7(Critic al) 3.5 - 5.0 mmol/L [facility] Comment: Noted by brass instrument repair technician. Please note: Patients with WBC >100,000 may have falsely elevated Potassium levels. Contact the Clinical Chemistry Laboratory if there are any questions. ICa Whole Blood 1.00(L) 1.15 - 1.33 mmol/L [facility] Comment: Note: ??Total bilirubin higher than 20 mg/dL may lead to falsely low ionized calcium. CL Whole Blood 117(H) 98 - 107 mmol/L [facility] Gluc Whole Bld 219(H) 65 - 199 mg/dL [facility] Comment:Diabetes: >=200 mg/d L plus symptoms. Lactate WB 1.2 0.5 - 2.2 mmol/L [facility] Blood specimen (specimen) 04/06/2018 1:53 PM EDT 04/06/2018 1:53 PM EDT Lida Peter MD POINT OF CARE TEST O RDERAMARISOL [facility] [place] [address] * Request For 2nd Read CT Head [...] RBC, Urine 21(H) 0 - 3 /HPF [facility] WBC, Urine 8(H) 0 - 3 /HPF [facility] Bacteria, Urine Occasional (A) None /HPF [facility] Squamous Epithelial Cells Raw Data, Urine 1 <=4 /HPF [facility] Granular Casts, Urine 1(H) <=0 /LPF [facility] Urine specimen obtained by clean catch procedure (specimen) 04/06/2018 1:25 PM EDT 04/06/2018 1:30 PM EDT Narrative Resulting Agency Comment Spec In Lab Fabian Burkett MD URINE ORDERABLES [facility] [place] [address] * Rapid Drug Screen w/o Confirmation, Urine (04/06/2018 1:25 PM EDT) Barbiturates Screen, Urine None Detected None Detected [facility] Comment: The barbiturate screen detects [...] Benzodiazepines Screen, Urine None Detected None Detected [facility] Comment: The benzodiazepines screen detects [...] Cocaine Screen, Urine None Detected None Detected [facility] Comment: The cocaine metabolites screen detects benzoylecgonine (Cocaine Metabolite) at concentrations >150 ng/mL. A ? Presumptive Positive? result indicates that the screening result was positive but has not yet been confirmed by a highly-specific method. As with any screen, occasional false positive results from cross-reacting substances may occur. Not for Medico-Legal Purposes. Methadone Metabolites Screen, Urine None Detected None Detected [facility] Comment: The methadone metabolite screen detects EDDP (major methadone metabolite) at concentrations >100 ng/mL. A ? Presumptive Positive? result indicates that the screening result was positive but has not yet been confirmed by a highly-specific method. As with any screen, occasional false positive results from cross-reacting substances may occur. Not for Medico-Legal Purposes. Opiate Screen, Urine None Detected None Detected [facility] Comment: The opiates screen detects [...] Cannabinoid Screen, Urine None Detected None Detected [facility] Comment: The marijuana metabolites screen detects the THC metabolite (01-ofi-2-carboxy-delta 9-THC) at concentrations >20 ng/mL. A ? Presumptive Positive? result indicates that the screening result was positive but has not yet been confirmed by a highly-specific method. As with any screen, occasional false positive results from cross-reacting substances may occur. Not for Medico-Legal Purposes. Oxycodone Screen, Urine None Detected None Detected [facility] Comment: The oxycodone screen detects oxycodone and oxymorphone at concentrations >100 ng/mL. A ? Presumptive Positive? result indicates that the screening result was positive but has not yet been confirmed by a highly-specific method. As with any screen, occasional false positive results from cross-reacting substances may occur. Not for Medico-Legal Purposes. Buprenorphine Screen, Urine None Detected None Detected [facility] Comment: The buprenorphine screen detects buprenorphine at concentrations >5 ng/mL. A ? Presumptive Positive? result indicates that the screening result was positive but has not yet been confirmed by a highly-specific method. As with any screen, occasional false positive results from cross-reacting substances may occur. Not for Medico-Legal Purposes. Fentanyl Screen, Urine None Detected None Detected [facility] Comment: The fentanyl screen detects fentanyl at concentrations >2 ng/mL. A ? Presumptive Positive? result indicates that the screening result was positive but has not yet been confirmed by a highly-specific method. As with any screen, occasional false positive results from cross-reacting substances may occur. Not for Medico-Legal Purposes. Tricyclics Screen, Urine None Detected None Detected [facility] Comment: The tricyclics screen detects [...] Ethanol Screen, Urine None Detected None Detected [facility] Comment:This urine ethanol a ssay detects ethanol at concentrations >/= 100 mg/L. Amphetamines Screen, Urine None Detected None Detected [facility] Comment: The amphetamine screen detects d-amphetamine and d-methamphetamine at concentrations >300 ng/mL. A ? Presumptive Positive? result indicates that the screening result was positive but has not yet been confirmed by a highly-specific method. As with any screen, occasional false positive results from cross-reacting substances may occur. Not for Medico-Legal Purposes. Adulterants Screen, Urine None Detected None Detected [facility] Comment: No adulteration or dilution of this urine sample was detected. All urine samples submitted for urine drugs of abuse analysis are tested for creatinine concentration, pH, and for the presence of oxidants, nitrites, and chromate. Urine specimen (specimen) 04/06/2018 1:25 PM EDT 04/06/2018 1:30 PM EDT Narrative Resulting Agency Comment Spec In Lab Fabian Burkett MD CHEMISTRY ORDERABLES [facility] [place] [address] * (ABNORMAL) Urinalysis with reflex Culture (04/06/2018 1:25 PM EDT) Glucose, Urine Dipstick 50(A) Negative mg/dL [facility] Protein, Urine Dipstick >=500(A) Negative mg/dL [facility] Bilirubin, Urine Dipstick Negative Negative mg/dL [facility] Comment: Clinical correlation required for positive Urine Bilirubin results as false positive may occur with some drugs and drug related products. If a false positive is suspected a serum total bilirubin should be considered if clinically indicated. Urobilinogen, Urine Dipstick Normal Normal mg/dL [facility] pH, Urn (dipstick) 6.0 5.0 - 8.0 [facility] Blood, Urine Dipstick Small(A) Negative mg/dL [facility] Ketone, Urine Dipstick Negative Negative mg/dL [facility] Nitrite, Urine Dipstick Negative Negative [facility] Leukocytes, Urine Dipstick Negative Negative mcL [facility] Appearance, Urine Dipstick Hazy(A) Clear [facility] Specific [place] Urine Automated 1.023 1.002 - 1.030 [facility] Color, Urine Dipstick Yellow Yellow [facility] Reflex to Culture No [facility] Urine specimen obtained by clean catch procedure (specimen) 04/06/2018 1:25 PM EDT 04/06/2018 1:30 PM EDT Narrative Resulting Agency Comment Spec In Lab Erwin Hernandez MD URINE ORDERABLES [facility] [place] [address] * Rapid Drug Screen, Urine (RAUL Request) (04/06/2018 1:25 PM EDT) RAUL Conf Requested No [facility] Comment: Collection date/time has been modified to: 13:25:00. ??Previous collection date/time: 13:03:00. Corrected from No [NA] on 04/06/18 01:32 by Crystal MuellerU Requested See Comment [facility] Comment: Refer to Rapid Drug Screen w/o Confirmation, Urine for results. Collection date/time has been modified to: 13:25:00. ??Previous collection date/time: 13:03:00. Corrected from See Comment [NA] on 04/06/18 01:32 by Crystal Mueller Urine specimen (specimen) 04/06/2018 1:25 PM EDT 04/06/2018 1:30 PM EDT Narrative Resulting Agency Comment Spec In Lab Erwin Hernandez MD URINE ORDERABLES [facility] [place] [address] * CK (04/06/2018 1:15 PM EDT) Creatine Kinase 168 0 - 200 unit/L [facility] Blood specimen (specimen) Venous Draw / Unknown 04/06/2018 1:15 PM EDT 04/06/2018 2:22 PM EDT Narrative Resulting Agency Comment Spec In Lab Kavon Rob MD CHEMISTRY ORDERABLES Performing Organization Address City/[facility]/ZIP Co de Phone Number [facility] [place] [address] * Scan, Peripheral Blood (04/06/2018 1:15 PM EDT) Plat estimate Normal [facility] RBC Morphology Abnormal [facility] Ovalocytes 1-5 /HPF [facility] Yovanny Cells 1-5 /HPF [facility] Blood specimen (specimen) 04/06/2018 1:15 PM EDT 04/06/2018 1:24 PM EDT Narrative Resulting Agency Comment Spec In Lab Fabian Burkett MD HEMATOLOGY ORDERABLE S [facility] [place] [address] * ABORH Recheck Status (04/06/2018 1:15 PM EDT) ABORH Type Recheck Completed [facility] Blood specimen (specimen) 04/06/2018 1:15 PM EDT 04/06/2018 1:20 PM EDT Narrative Resulting Agency Comment Spec In Lab Fabian Burkett MD BLOOD BANK LAB ORDER KELLY [facility] [place] [address] * Blue Tube HOLD (04/06/2018 1:15 PM EDT) [facility] Blue Hold Sample in lab. [facility] Blood specimen (specimen) Venous Draw / Unknown 04/06/2018 1:15 PM EDT 04/06/2018 1:26 PM EDT Fabian Burkett MD HEMATOLOGY ORDERABLE S [facility] [place] [address] * Gold Tube HOLD (04/06/2018 1:15 PM EDT) Gold Hold Sample in lab. [facility] Blood specimen (specimen) Venous Draw / Unknown 04/06/2018 1:15 PM EDT 04/06/2018 1:25 PM EDT Fabian Burkett MD CHEMISTRY ORDERABLES [facility] [place] [address] * Blue Tube HOLD (04/06/2018 1:15 PM EDT) Blue Hold Sample in lab. [facility] Blood specimen (specimen) Venous Draw / Unknown 04/06/2018 1:15 PM EDT 04/06/2018 1:26 PM EDT Fabian Burkett MD HEMATOLOGY ORDERABLE S [facility] [place] [address] * (ABNORMAL) Differential, Automated (04/06/2018 1:15 PM EDT) Neutrophil % 78.7 % [facility] Neutrophil Absolute 12.22(H) 1.70 - 6.10 x10(3)/ L [facility] Lymph % 10.3 % [facility] Lymphocytes Abs 1.6 0.9 - 3.2 x10(3)/[facility] Monocyte % 9.8 % [facility] Monocyte Abs 1.5(H) 0.3 - 0.9 x10(3)/ L [facility] Eos % 0.1 % [facility] Eosinophils Abs 0.0 0.0 - 0.4 x10(3)/[facility] Basophil % 0.2 % [facility] Baso Absolute 0.0 0.0 - 0.1 x10(3)/[facility] Immature Gran % 0.90 % [facility] Comment: Immature granulocytes(IG's)percentage and absolute count will include metamyelocytes, myelocytes, and promyelocytes. Blood smears from CBCs yielding IG's will be scanned manually for concordance. If this scan disagrees with the automated IG or if promyelocytes are noted, a manual differential will be performed. Immature Gran Absolute 0.14(H) 0.00 - 0.04 x10(3)/ L [facility] Blood specimen (specimen) 04/06/2018 1:15 PM EDT 04/06/2018 1:24 PM EDT Narrative Resulting Agency Comment Spec In Lab Fabian Burkett MD HEMATOLOGY ORDERABLE S [facility] [place] [address] * (ABNORMAL) Hemogram (04/06/2018 1:15 PM EDT) White Blood Cell 15.5(H) 4.0 - 9.5 x10(3)/mc L [facility] Red Blood Cell 3.80(L) 4.58 - 5.54 x10(6)/mc L [facility] Hemoglobin 11.5(L) 13.7 - 16.5 gm/dL [facility] Hematocrit 35.2(L) 40.5 - 48.5 % [facility] Mean Cell Volume 92.6 82.9 - 93.1 [facility] Mean Cell Hemoglobin 30.3 27.5 - 32.1 pg [facility] Mean Cell Hemoglobin Concentration 32.7 32.0 - 35.7 gm/dL [facility] Platelet 145 145 - 357 x10(3)/mc L [facility] RDW Standard Deviation 53.2(H) 36.0 - 45.0 [facility] RDW coefficient of variation 15.9(H) 11.4 - 13.8 % [facility] Mean Platelet Volume 9.0 7.6 - 12.9 [facility] NRBC% auto 0.0 % [facility] NRBC Absolute 0.000 0.000 - 0.000 x10(3)/mc L [facility] Blood specimen (specimen) 04/06/2018 1:15 PM EDT 04/06/2018 1:24 PM EDT Narrative Resulting Agency Comment Spec In Lab Fabian Burkett MD HEMATOLOGY ORDERABLE S [facility] [place] [address] * Antibody screen (04/06/2018 1:15 PM EDT) Ab Screen Interp Negative [facility] Expires at [id number] on: 04/09/2018 [facility] Blood specimen (specimen) 04/06/2018 1:15 PM EDT 04/06/2018 1:20 PM EDT Narrative Resulting Agency Comment Spec In Lab Fabian Burkett MD BLOOD BANK LAB ORDER KELLY [facility] [place] [address] * ABO/Rh Typing (04/06/2018 1:15 PM EDT) Pathologist [facility] ABORH Type A Pos [facility] Comment: 04/06/2018 15:10 ??CHASDM ABO/Rh determined (Acc# [id number]) to be A pos. Blood specimen (specimen) 04/06/2018 1:15 PM EDT 04/06/2018 1:20 PM EDT Narrative Resulting Agency Comment Spec In Lab Fabian Burkett MD BLOOD BANK LAB ORDER KELLY [facility] [place] [address] * Fibrinogen (04/06/2018 1:15 PM EDT) Physicians [facility] Fibrinogen 255 200 - 393 mg/dL [facility] Comment: A fibrinogen level >100 mg/dL is adequate for hemostasis in most patients without underlying bleeding disorders. Blood specimen (specimen) 04/06/2018 1:15 PM EDT 04/06/2018 1:24 PM EDT Narrative Resulting Agency Comment Spec In Lab Erwin Hernandez MD HEMATOLOGY ORDERAB LES [facility] [place] [address] * Ethanol Level (04/06/2018 1:15 PM EDT) Ethanol <100 <=99 mg/L [facility] Comment: Greater than 800 mg/L (0.08%) should be considered intoxicated. 3400 to 4500 mg/L (0.34 - 0.45%) is considered severe intoxication. Greater than 5500 mg/L (0.55%) is usually fatal. Blood specimen (specimen) 04/06/2018 1:15 PM EDT 04/06/2018 1:24 PM EDT Narrative Resulting Agency Comment Spec In Lab Erwin Hernandez MD CHEMISTRY ORDERABL ES Performing Organization Address [facility] Co de Phone Number [facility] [place] [address] * APTT (04/06/2018 1:15 PM EDT) Partial Thromboplastin Time 31 25 - 37 sec [facility] Comment: The PTT is NOT appropriate for heparin monitoring. Use the Anti-Xa level for heparin monitoring (HEP UFH) or LMWH monitoring (HEP LMW). A PTT less than 37 seconds generally indicates adequate hemostasis. Blood specimen (specimen) 04/06/2018 1:15 PM EDT 04/06/2018 1:24 PM EDT Narrative Resulting Agency Comment Spec In Lab Erwin Hernandez MD HEMATOLOGY ORDERAB LES Performing Organization Address [facility] Co de Phone Number [facility] [place] [address] * (ABNORMAL) Prothrombin Time (04/06/2018 1:15 PM EDT) Prothrombin Time 29.1(H) 9.4 - 12.5 sec [facility] International Normalization Ratio 2.6 [facility] Comment: An INR <2.0 indicates [...] Lab Erwin Hernandez MD HEMATOLOGY ORDERAB LES [facility] [place] [address] * (ABNORMAL) Basic Metabolic Panel (non-fasting) (04/06/2018 1:15 PM EDT) Glucose 219(H) 65 - 199 mg/dL [facility] Comment:Diabetes: >=200 mg/d L plus symptoms Blood Urea Nitrogen 39(H) 10 - 20 mg/dL [facility] Creatinine 2.01(H) 0.80 - 1.50 mg/dL [facility] Sodium 140 135 - 145 mmol/L [facility] Potassium 5.2(H) 3.5 - 5.0 mmol/L [facility] Comment: Please note: ??Patients with WBC >100,000 may have falsely elevated Potassium levels. ??For accurate Potassium quantification in these patients send serum separator tube (gold top) for subsequent determinations. ??Contact the Clinical Chemistry Laboratory if there are any questions. Chloride 116(H) 98 - 107 mmol/L [facility] Carbon Dioxide 15(L) 22 - 31 mmol/L [facility] Anion Gap 9 5 - 15 mmol/L [facility] Calcium 4.9(Criti constance) 8.5 - 10.5 mg/dL [facility] Comment:Called by: lorelei, Read back by: misael luong_, Date/Time:04/06/18 14:04. Est Glomerular Filtration Rate 36(L) >=60 mL/min/1. 73 m?? [facility] Comment: The eGFR was calculated using the CKD-EPI equation. As with all creatinine based estimates of kidney function, eGFR values calculated with the CKD-EPI equation are not accurate in patients with acute kidney failure, extremes of body mass or the acutely ill. [email or web address]/[email or web address] eGFR 42(L) >=60 mL/min/1. 73 m?? [facility] Comment: The eGFR was calculated using the CKD-EPI equation. As with all creatinine based estimates of kidney function, eGFR values calculated with the CKD-EPI equation are not accurate in patients with acute kidney failure, extremes of body mass or the acutely ill. [email or web address]/[email or web address] Blood specimen (specimen) 04/06/2018 1:15 PM EDT 04/06/2018 1:24 PM EDT Narrative Resulting Agency Comment Spec In Lab Erwin Hernandez MD CHEMISTRY ORDERABL ES [facility] [place] [address] * XR Chest AP and Pelvis AP [...] pH, Arterial 7.14(Criti constance) 7.35 - 7.45 [facility] Comment:Noted by brass instrument repair technician. PCO2, Arterial 51(H) 35 - 45 mmHg [facility] PO2, Arterial 38(Critica l) 85 - 104 mmHg [facility] Comment:Noted by brass instrument repair technician. Bicarbonate, Arterial 16.7(L) 20.0 - 26.0 mmol/L [facility] Base Excess, Arterial -12.4(L) -3.0 - 3.0 mmol/L [facility] Hgb Blood Gas 12.3(L) 13.7 - 16.5 gm/dL [facility] Oxyhemoglobin, Arterial 69.1(L) 94.0 - 97.0 % [facility] Carboxyhemoglob in, Arterial 0.3 % [facility] Comment: Nonsmokers: 0.5-1.5% COHB Smokers: Variable, but usually less than 10% Toxic: 20-30% COHB Lethal: Greater than 60% COHB Methemoglobin, Arterial 0.4 <=1.5 % [facility] Na Whole Blood 137 135 - 145 mmol/L [facility] K Whole Blood 6.3(Critic al) 3.5 - 5.0 mmol/L [facility] Comment: Noted by brass instrument repair technician. Please note: Patients with WBC >100,000 may have falsely elevated Potassium levels. Contact the Clinical Chemistry Laboratory if there are any questions. ICa Whole Blood 1.01(L) 1.15 - 1.33 mmol/L [facility] Comment: Note: ??Total bilirubin higher than 20 mg/dL may lead to falsely low ionized calcium. CL Whole Blood 112(H) 98 - 107 mmol/L [facility] Gluc Whole Bld 258(H) 65 - 199 mg/dL [facility] Comment:Diabetes: >=200 mg/d L plus symptoms. Lactate WB 2.0 0.5 - 2.2 mmol/L [facility] Blood specimen (specimen) 04/06/2018 1:14 PM EDT 04/06/2018 1:14 PM EDT Erwin Hernandez MD POINT OF CARE TEST ORDERABLES [facility] [place] [address] * Prepare RBC (04/06/2018 1:05 PM EDT) Dispensed? Yes [facility] Blood specimen (specimen) 04/06/2018 1:05 PM EDT 04/06/2018 1:03 PM EDT Erwin Hernandez MD BLOOD BANK PRODUCT ORDERABLES Performing Organization Address [facility] Co de Phone Number [facility] [place] [address] * Film Library- Storage Only CT Chest Abdomen Pelvis (04/06/2018 12:05 AM EDT) Narrative [facility] - 04/06/2018 2:07 PM EDT This exam is for storage only and is auto-finalizing. Fabian Burkett MD [facility] FILM LIBRARY ORD ERABLES Performing Organization Address [facility] de Phone Number [place], [place] * SCAN DOC: IMPLANTABLE DEVICES (04/06/2018 12:00 AM EDT) Narrative 04/06/2018 12:00 AM EDT Ordered by an unspecified provider. Scanning Provider MEDIA MGR SCAN EXT O RDR/RSLT * Film Library- Storage Only CT Head And Spine (04/06/2018 12:00 AM EDT) Narrative [facility] - 04/06/2018 1:32 PM EDT This exam is for storage only and is auto-finalizing. Fabian Burkett MD [facility] FILM LIBRARY ORD ERABLES Performing Organization Address [facility] de Phone Number [place], [place] * SCAN DOC: LAB (04/06/2018 12:00 AM EDT) Narrative 04/06/2018 12:00 AM EDT Ordered by an unspecified provider. Scanning Provider MEDIA MGR SCAN EXT O RDR/RSLT * SCAN DOC: AQUACULTURE PROGRAM DIRECTOR (04/06/2018 12:00 AM EDT) Anatomical Region Laterality [...] 250 mg, Oral, DAILY, First dose on [facility] 04/07/18 at 2100, Until Discontinued, Routine Given [...] Blevins, SAVANNA) 0605 (Given - Provider: Margarita Blevnis RN)1200 (Due) allopurinol (ZYLOPRIM) tablet 150 mg [...] Routine documented in this encounter Care Teams Animal Control Officer Relationship Specialty Start Date End Date Carroll Garcia DO [address] [place] [address] [address] [place] [address] PCP - General 09/23/11 10/20/22 documented as of this encounter
--- OUTSIDE RECORDS SUMMARY | 2024-05-23 13:28 | XMS_ITS | Encounter Summary ---
Author Organization [facility] Address [facility] [place] [address] Care Team Providers Care Anesthesiologist/Physician Name Role Phone AlfredoCarroll allison Primary Care Provider [phone] Encounter Details Date Type Department Care Team (Latest Contact Info) Description 04/07/2018 9:13 AM EDT - 04/07/2018 11:59 PM EDT Hospital Encounter Radiology Library at [facility] [place] [phone] Discharge Disposition: Home Social History Tobacco Use [...] on filedocumented in this encounter Care Teams Anesthesiologist/Physician Relationship Specialty Start Date End Date Carroll Garcia DO [address] [place] [address] PCP - General 09/23/11 10/20/22 documented as of this encounter
--- OUTSIDE RECORDS SUMMARY | 2024-05-23 13:28 | XMS_ITS | Encounter Summary ---
Author Organization [facility] [place] [address] Care Team Providers Care Tractor Sweeper Operator Name Role Phone Carroll Fuentes DO Primary Care Provider Encounter Details Date Type Department Care Team (Late st Contact Info) Description 04/06/2018 Abstract [place] [address] Nilda Maravilla, RN Social History Tobacco Use [...] on filedocumented in this encounter Care Teams Tractor Sweeper Operator Relationship Specialty Start Date End Date Carroll Fuentes DO [address] [place] [address] [address] [place] [address] PCP - General 09/23/11 10/20/22 documented as of this encounter
--- OUTSIDE RECORDS SUMMARY | 2024-05-23 13:28 | XMS_ITS | Encounter Summary ---
Author Organization [facility] Address [facility] [place] [address] Care Team Providers Care Global Technical Writer Name Role Phone AlfredoCarroll allison Primary Care Provider Encounter Details Date Type Department Care Team (Latest Contact Info) Description 04/07/2018 2:53 AM EDT - 04/07/2018 9:12 AM EDT Hospital Encounter Radiology Library at [facility] [place] [phone] Discharge Disposition: Home Social History Tobacco Use [...] on filedocumented in this encounter Care Teams Global Technical Writer Relationship Specialty Start Date End Date Carroll Fuentes DO [address] [place] [address] [address] [facility] [address] [place] [address] PCP - General 09/23/11 10/20/22 documented as of this encounter
--- OUTSIDE RECORDS SUMMARY | 2024-05-23 13:28 | XMS_ITS | Encounter Summary ---
Author Organization [facility] Address [facility] [place] [address] Care Team Providers Care Slip Seat Coverer Name Role Phone AlfredoCarroll allison Primary Care Provider [phone] Encounter Details Date Type Department Care Team (Late st Contact Info) Description 04/08/2018 11:59 PM EDT Anesthesia Event [place] [address] Kvng Chauhan MD [facility] [place] [address] Anesthesia Record Procedure Summary Procedure Name Responsible Anesthesiologist Anesthesia Start Time Anesthesia Stop Time DEBRIDEMENT SKIN, SUBCU, MUSCLE, UPPER EXTREMITY (WRVU 2.7) (Left) Events No events on file. Meds * Agents No agents on file. * Blood No blood administrations on file. Lines, Drains, and Airways Type Details Placement Removal (RETIRED) Tunneled Central Line - Double Lumen 12/24/22; 1501; subclavian vein, left; (14.5 Turkmen); Carroll Diaz mD 12/24/22 1501 by Anup [...] GFR 15-29 ml/min ??? 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 manager long term care current use of immunosuppressive drug ??? [...] MICHAEL > 4.0CM, TRUNK performed by SABRINA SNACHEZ at [facility] OR ??? PRO LAP, RADICAL NEPHRECTOMY Left 05/31/2017 @LAPAROSCOPY, RADICAL NEPHRECTOMY (WRVU 25.06) performed by Jax Mills MD at [facility] OR ??? PRO REBL VES GRAFT, UP [...] UPPER EXTREMITY performed by SABRINA SANCHEZ at [facility] MAIN OR ??? PRO REVISE MEDIAN N/CARPAL TUNNEL SURG Left 04/06/2018 MEDIAN NERVE DECOMPRESSION (CARPAL TUNNEL RELEASE) (WRVU 4.97) performed by Lida Peter MD [facility] MAIN OR ? ? PRO SPLIT GRFT, HEAD, FAC, HAND, FEET <100SQCM N/A 02/20/2016 SPLIT THICKNESS SKIN SPLIT GRAFT,100SQ CM OR LESS, NECK performed by Miguel Angel Moreno MD at [facility] MAIN OR ??? PRO UPPER GI ENDOSCOPY, BIOPSY N/A 05/13/2017 EGD WITH BIOPSY (WRVU 2.49) performed by Aditya Barrera MD at [facility] ENDOSCOPY ??? PRO VASCULAR SURGERY PROCEDURE UNLIST Left 11/20/2015 LIGATION\REPAIR AV FISTULA performed by Camilo Ireland MD at [facility] MAIN OR ??? PRO VASCULAR SURGERY PROCEDURE UNLIST Left 11/20/2015 EXCISION VEIN FROM HAND performed by Camilo Ireland MD at [facility] MAIN OR ??? US RENAL TRANSPLANT [...] comment: Stable sats on RA Dental Assessment: [facility] Assessment: IV access: Peripheral line Anesthesia Plan: [...] on filedocumented in this encounter Care Teams Slip Seat Coverer Relationship Specialty Start Date End Date Carroll Fuentes DO [address] [place] [address] PCP - General 09/23/11 10/20/22 documented as of this encounter
--- OUTSIDE RECORDS SUMMARY | 2024-05-23 13:28 | XMS_ITS | Encounter Summary ---
Author Organization [facility] Address [facility] [place] [address] Care Team Providers Care Setter Helper Name Role Phone Alfredo, Carroll MIX Primary Care Provider [phone] Reason for Visit * Auth/Cert Specialty Diagnoses [...] Expiration Date Visits Re quested Visits Authorized [id number] 1 1 Encounter Details Date Type Department Care Team (Latest Contact Info) Description 04/08/2018 3:39 PM EDT - 04/08/2018 11:59 PM EDT Hospital En[place] [address] Discharge Disposition: Home Social History Tobacco Use [...] on filedocumented in this encounter Care Teams Setter Helper Relationship Specialty Start Date End Date Carroll Fuentes DO [address] [place] [address] PCP - General 09/23/11 10/20/22 documented as of this encounter
--- OUTSIDE RECORDS SUMMARY | 2024-05-23 13:28 | XMS_ITS | Encounter Summary ---
Author Organization [facility] Address [facility] [place] [address] Care Team Providers Care Wallboard Worker Name Role Phone AlfredoCarroll geiger Primary Care Provider [phone] Reason for Visit * Reason Comments Trauma [...] Expiration Date Visits Re quested Visits Authorized [id number] 1 1 Encounter Details Date Type Department Care Team (Late st Contact Info) Description 04/14/2018 7:30 AM EDT - 04/14/2018 8:58 AM EDT [place] [address] Yimi Easton MD [facility] [place] [address] REPAIR INTERMEDIATE WOUND, (NO HANDS OR FEET) [...] GFR 15-29 ml/min ??? 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 alf current use of immunosuppressive drug ??? H/O [...] epilepsy, and prior TBI who presents to [facility] s/p LUE bleeding with PEA arrest. Description [...] Pt intubated in field. Pt taken to [facility], where second tourniquet applied and pt received 6U PRBC. Transferred to [facility] for further care. Of note, per Dr. [...] Studies: none Discharge Conditions/Prognosis: Good [facility] [address] [place] [address] Discharge Medications: Your Medications New Medications Dose [...] draw weekly CBC/CMP with results sent to [facility] Infectious disease. See wound care instructions below. [...] For any problems or questions please call [phone] JAGJIT FallonN, chef head Nurse Clinician For issues on weeknights after 5pm and weekends please call [phone] and ask for the Vascular Fellow online publisher. General Instructions Plastic Surgery Wound Care Instructions [...] about scheduling, please contact our administrative officesat [phone] For clinical questions, please call our nurses at [phone] Both offices are open Wednesday thru Wednesday 8a - 5p. With emergencies after hours, call the hospital dumpling machine operator at [phone] and ask for the Plastic Surgery Resident online publisher. Future Appointments and Orders Future Appointments and Orders Future Appointments Provider Department Dept Phone 05/17/2018 10:20 AM Laina Disla APRN Plastic Surgery at [place] Arrive at: [facility] 4M [phone] 05/17/2018 11:30 AM Kurt Medina MD Infectious Disease at [place] Arrive at: [place] 5C [phone] 05/17/2018 12:30 PM Nilda Minaya RN Vascular Surgery at [place] Arrive at: [place] 3V [phone] 05/27/2018 10:15 AM Lida Peter MD Vascular Surgery at [place] Arrive at: [place] [place] [facility] 3V [phone] 08/18/2018 10:30 AM Chanel Smith MD Dermatology at [facility] [phone] Future Orders Complete By Expires OPAT: Order / Recommendation for Post Discharge IV Antibiotic Management [XHO918 CPT(R)] As directed Process Instructions: If no progress note charted, please enter Clinical details in comments. Scheduling Instructions: Comments: Please Fax all results to: OPAT Program Infectious Disease Section [facility] [place], [place] [address] FAX: Line care instructions per [facility] OPAT Program protocol. After hours, please contact the Infectious Disease Physician online publisher at . If this order was signed greater than 72 hours prior to [facility] discharge, please call to confirm the accuracy [...] about scheduling, please contact our administrative officesat [phone] For clinical questions, please call our nurses at [phone] Both offices are open Wednesday thru Wednesday 8a - 5p. With emergencies after hours, call the hospital dumpling machine operator at [phone] and ask for the Plastic Surgery Resident online publisher. * Patient Instructions* Nilda Minaya RN - [...] For any problems or questions please call [phone] YEIMY Fallon, chef head Nurse Clinician For issues on weeknights after 5pm and weekends please call [phone] and ask for the Vascular Fellow online publisher. documented in this encounter Medications at Time [...] AM EDT Pt accepted bed offer at [facility] for transfer today. Pt qualifies for ambulance transfer due to being on bed alarm while here, being impulsive and history of TBI. Pt will be transferred at Noon via [facility]. I called pt brother Lucas to inform. He was with JANICE Guzman from [facility] [employer]. Our SW Bia spoke with Lucas as well about continuing the LTC Medicaid application process. Nurse to Nurse report number given to pt's staff nurse Danny. Discharge envelope started; still needed discharge summary, medication sheets and prescription added. Please call CM if needed for further pt discharge needs. Padmini Ruiz RN [phone] * Reynaldo Jade - 05/04/2018 8:58 AM EDT Office of Care Management/Handkerchief Sample Clerk Patient Name: Christy Ambrose : 1960 Patient has been offered a SNF bed at [facility] [place] for today, 05/04/18 [facility] arranged for a 12:00 pm transport. Ambulance will need: Medicare ambulance form completed and signed (MD or Feather Washer RN/ATTACHE) Copy of patient demographics [place] Out of Hospital DNR/DNI order, if active No MD to MD report necessary Please call Nursing Report to [phone], ask for brine tank operator. Info to accompany patient: Narcotic Prescriptions Copies of Medication Administration Records and IV sheets for past 10 days. Plan: Handkerchief Sample Clerk will be available to the patient and Feather Washer-RN and/or Social Workerfor further assistance. Patient will be discharged to: [address] [address] Reynaldo Jade, Handkerchief Sample Clerk * Chasidy Monahan PA - 05/04/2018 7:47 [...] AM Laina Disla APRN [facility] 4M [facility] 05/17/2018 11:30 AM Kurt Medina MD [facility] 5C [facility] 05/17/2018 12:30 PM Nilda Minaya RN [facility] V [facility] 08/18/2018 10:30 AM Chanel Smith MD [facility] Chasidy PANCHITO Moser Pager: [phone] * Nayeli Wilde, SAVANNA - 05/03/2018 8:29 PM EDT Images from the original note were not included. PRN dressing change Dressing prior to change Dressing after change * Natalya Wan MSW - 05/03/2018 5:01 PM EDT ATTACHE and DONAVAN Chaidez met with Christy, his mother Ilda (HDPOA), and his brother Lucas (HDPOA and FPOA). All three parties accepted [facility] bed [facility] at [facility] for rehab and hope thatif a bed becomes available at [facility] Christy can be transferred. Family to continue tocomplete [employer] Choices for Care and work on terminal computer operator supportive living with [facility] when mother goes to assisted living. * Nicole Hamilton LD - 05/03/2018 2:04 PM EDT Nutrition Progress Note Christy Ginna Ambrose is a 57 y.o. male Reason for intervention: Follow up Nutrition Recommendations: Could liberalize diet to [facility]/Cardiac Continue to monitor potassium trends Monitor weight [...] ml/min N18.4 ??? 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 [place] Body Weight (IBW): [place] body weight: 73.2 kg (161 lb 5.4 [...] intakes. Potassiumnormal, could consider liberalizing diet to [facility]/Cardiac. Patient denies any questions/concerns rega rding current diet. Will continue to monitor. JERICHO Marion Beeper #: [phone] * Javier Nolan MD - 05/03/2018 7:44 AM EDT Images from the original note were not included. PLASTIC SURGERY PROGRESS NOTE ID: Christy Abmrose??is a 57 y.o.??old male??w/hx of??renal transplant??who intially??presented [...] by primary team Javier Nolan MD Pager: [phone] * Tristin Marrero MD - 05/03/2018 7:40 [...] ongoing. Angelina Marrero Vascular Surgery, PGY3 Pager #[phone] * Tristin Marrero MD - 05/02/2018 12:35 [...] recommendations. Angelina Marrero Vascular Surgery, PGY3 Pager #[phone] * Chasidy Monahan PA - 05/02/2018 9:16 [...] team PANCHITO Rios Plastic Surgery Team Pager: [phone] * Natalya Jacobsen MD - 05/01/2018 9:15 [...] Aditi Mccollum MD Plastic Surgery Resident P# [phone] * Natalya Jacobsen MD - 04/30/2018 9:23 [...] Aditi Mccollum MD Plastic Surgery Resident P# [phone] * Natalya Jacobsen MD - 04/29/2018 2:00 [...] General Surgery PGY-1 [id number] * Natalya Wan, ATTACHE - 04/29/2018 11:21 AM EDT ATTACHE spoke with patients mother and Mo [facility] [employer] [facility] ATTACHE who are following up today by completingChoices for Care application. Mother told ATTACHE patient was fully independent until this event. [...] 10:30 AM NURSE, PLASTIC SURGERY [facility] [address] [place] [address] CLIN 05/02/2018 12:30 PM Natalya Ojeda MD [facility] 08/18/2018 10:30 AM [facility] Bauman MD Plastic surgery team pager: [phone] 04/29/2018 6:48 AM * Kumar Schilling - 04/28/2018 2:37 PM EDT Narrative: Visited to introduce and assess acceptance of Academic Vice President services. Pt was awake, alert, oriented and [...] Provided emotional, spiritua support and encouraging presence. Academic Vice President services accepted.Conversation to build trusting relationship.Provided pastoral [...] 10:30 AM NURSE, PLASTIC SURGERY [facility] [address] [place] [address] CLIN 05/02/2018 12:30 PM Natalya Ojeda MD [facility] 08/18/2018 10:30 [address] Smith [address] [facility] Taniya ND Plastic surgery team pager: [phone] 04/28/2018 8:12 AM Attending: Plan discussed and [...] Danielle Peoples, DO Infectious Disease Fellow Pager [phone] Associated attestation - Kurt Medina MD - [...] team PANCHITO Rios Plastic surgery team pager: [phone] 04/27/2018 8:46 AM Attending: Plan discussed and [...] stable - UOP adequate Thelma Solitario Pager: [phone] 04/27/18 * Domi Norman, RN - 04/26/2018 [...] Note Recommendation/Plan: Diet at MD discretion, consider [facility] diet with K restriction May liberalize to [facility] if K is WNL Appreciate updated weights [...] / appropriate for Occupational Therapy Services. Pager [phone] NICKY Irizarry/John Occupational Therapy Rehabilitation Department * [...] team PANCHITO Rios Plastic surgery team pager: [phone] 04/26/2018 8:01 AM Attending: Pt seen and [...] Danielle Peoples DO Infectious Disease Fellow Pager [phone] Associated attestation - Kurt Medina MD - [...] OR tomorrow - no need to hold [facility] PANCHITO Rios Plastic surgery team pager: [phone] 04/25/2018 1:10 PM Attending: Plan discussed and [...] 27 27 27 Microbiology ?? Tissue culture [[id number]] (Abnormal) Collected: 04/19/18924 ? Lab Status: Preliminary [...] - skin grafting Wednesday - NPO at PR Wednesday night - no need to hold [facility] Camden Sol MD Plastic Surgery, PGY-5 [...] 27 27 27 Microbiology ?? Tissue culture [[id number]] (Abnormal) Collected: 04/19/18924 ? Lab Status: Preliminary [...] O: Telephone call received from Rachna Muro ([facility] [employer] [facility]) who reports that patient's Mother is already assigned to worker Lalitha. Rachna suggested I call Mother and remind her that she has made contact with the agency. Rachna cannot release any information to [facility] without a signed release. Lower In Supervisor attempted to call Mother today, no answer, [...] PTT 27 27 27 Microbiology Tissue culture [[id number]] (Abnormal) Collected: 04/19/18924 ? Lab Status: Preliminary [...] just returned from ambulating unit3x w/ staff engineer. RN reports pt is supervision while ambulating to/from bathroom and requires min A for hygiene thoroughness. Pt deferred OT until tomorrow; pt education provided re: importance of frequent functional mobility and participation w/ ADL tasks. Will follow up as available / appropriate for Occupational Therapy Services. Pager [phone] NICKY Irizarry/John Occupational Therapy Rehabilitation Department * [...] PTT 27 27 27 Microbiology Tissue culture [[id number]] (Abnormal) Collected: 04/19/18924 ? Lab Status: Preliminary [...] Transplant: continue current immunosuppression regimen. Appreciate input. [facility] Vascular Surgery * Kelsey Tyler, [...] encounter: 86.2 kg (190 lb 0.6 oz). [place] Body Weight (IBW): [place] body weight: 73.2 kg (161 lb 5.4 [...] Lombardi Beeper #: [phone] * Karis Mejia, ATTACHE - 04/20/2018 11:29 AM EDT Discharge Planning: O: Telephone call to patient's Mother Ilda who reports that she was unable to connect with her local [facility]. Unfortunately I believe that Ilda may be overwhelmed by patient's admission and events leading up to hospitalization. Ilda reports that there are repairs that need to be completed in the family home and that a staff member at [facility] (she cannot identify) has told her that patient can not return home. I offered support to Ilda and suggested that I would contact the [facility] [employer] [facility] and ask them to outreach to her. She was appreciative. Telephone call to Rachna Muro ([facility] [phone]), voice mail message relaying above information. P: Await call back from Rachna, continue to liaison with Mother and offer support around discharge planning. 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 -No acute indication for DECK MECHANIC ,,Strict intake and out put monitoring,Daily weights,Renal [...] PTT 27 27 27 Microbiology Tissue culture [[id number]] (Abnormal) Collected: 04/19/18924 ? Lab Status: Preliminary [...] regimen. Angelina Marrero Vascular Surgery, PGY3 Pager #[phone] * Karuna Nagel, RN - 04/19/2018 10:28 [...] Angelina Jaycobcalli Marrero Vascular Surgery, PGY3 Pager #[phone] * Selma Fontanez PTA - 04/18/2018 2:14 PM EDT Physical Therapy Note Patient having bedside vac change with pain meds. Will follow up with patient tomorrow. Selma Fontanez PTA Pager# [phone] * Tristin Marrero MD - 04/18/2018 12:22 [...] kidney disease. - No acute indication for DECK MECHANIC, Strict intake and out put monitoring, Daily [...] kidney disease. - No acute indication for DECK MECHANIC, Strict intake and out put monitoring, Daily [...] ml/min N18.4 ??? 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 PRO DECOMPRESS FOREARM, BRACH ART EXPLOR Left 04/06/2018 FASCIOTOMY, FOREARM, WITH BRACHIAL ARTERY EXPLORATION (WRVU 8.41) performed by Lida Peter MDat [facility] OR ??? PRO DIRECT REPAIR RUPTURED ANEURYSM, AXILLO-BRACHIAL ARM INCIS Left 04/06/2018 @REPAIR, RUPTURED AXILLARY OR BRACHIAL ARTERY ANEURYSM BY ARM INCISION (WRVU *) performed by Lida Peter MD at [facility] MAIN OR ??? PRO EXC PAROTD, TOTAL, [...] 4.0CM, TRUNK performed by SABRINA MEDRANO at [facility] OR ??? PRO LAP, RADICAL NEPHRECTOMY Left 05/31/2017 @LAPAROSCOPY, RADICAL NEPHRECTOMY (WRVU 25.06) performed by Jax Mills MD at [facility] OR ??? PRO REBL VES GRAFT, UP EXTREM Left 04/06/2018 REPAIR BLOOD VESSEL WITH GRAFT OTHER THAN VEIN, UPPER EXTREMITY (WRVU 15.83) performed by Lida Peter MD at [facility] OR ??? PRO RELIEVE PRESSURE ON NERVE(S) Left 04/06/2018 (MSURG) CARPAL TUNNEL (WRVU 4.82) performed by Hay Sparks MD at [facility] OR ??? PRO REPAIR INTERMEDIATE S/A/T/E 2.6-7.5 CM 04/19/2012 REPAIR INTERMEDIATE WOUND, (NO HANDS OR FEET) 2.6 TO 7.5CM, UPPER EXTREMITY performed by SABRINA MEDRANO at [facility] OR ? ? PRO REPAIR INTERMEDIATE S/A/T/E > 30.0 CM Left 04/14/2018 REPAIR INTERMEDIATE WOUND, (NO HANDS OR FEET) >30.0CM, UPPER EXTREMITY (WRVU 5) performed by Yimi Easton MD at [facility] OR ??? PRO REVISE MEDIAN N/CARPAL TUNNEL SURG Left 04/06/2018 MEDIAN NERVE DECOMPRESSION (CARPAL TUNNEL RELEASE) (WRVU 4.97) performed by Lida Peter MD [facility] MAIN OR ? ? PRO SPLIT GRFT, HEAD, FAC, HAND, FEET <100SQCM N/A 02/20/2016 SPLIT THICKNESS SKIN SPLIT GRAFT,100SQ CM OR LESS, NECK performed by Miguel Angel Moreno MD at [facility] MAIN OR ??? PRO UPPER GI ENDOSCOPY, BIOPSY N/A 05/13/2017 EGD WITH BIOPSY (WRVU 2.49) performed by Aditya Barrera MD at [facility] ENDOSCOPY ??? PRO VASCULAR SURGERY PROCEDURE UNLIST Left 11/20/2015 LIGATION\REPAIR AV FISTULA performed by Camilo Ireland MD at [facility] MAIN OR ??? PRO VASCULAR SURGERY PROCEDURE UNLIST Left 11/20/2015 EXCISION VEIN FROM HAND performed by Camilo Ireland MD at [facility] MAIN OR ??? US RENAL TRANSPLANT BIOPSY 12/31/2010 Reason for Nutrition Intervention: Initial assessment Diet Order: Regular Appetite: Good Food allergies: None documented Chewing/Swallowing difficulty: none, cleared for regular diet and thin liquids per SKIN PASS OPERATOR Estimated body mass index is 28.91 kg/(m^2) [...] being worked up for possible intracranial event. SKIN PASS OPERATOR cleared patient for regular diet and thin liquids. Patient has been tolerating this well, but per RN this morning he did not eat d/t nausea. Thiscould be attributed to pain meds on empty stomach. SKIN PASS OPERATOR and OT in with patient at time of attempt this morning, will check back in afternoon. Patient seen this afternoon having eaten ~50% of his lunch, appeared to still be eating as well. Hehas difficulty recalling his diet CLINICAL TRIAL DATA MANAGER. He is not sure if he has [...] kidney disease. - No acute indication for DECK MECHANIC, Strict intake and out put monitoring, Daily [...] kidney disease. - No acute indication for DECK MECHANIC, Strict intake and out put monitoring, Daily [...] to communicate with Mother re discharge planning. Lower In Supervisor spoke with Mother today who is glad to hear that patient is progressing. Mother has an appointment on 04/15/18 with the [facility] [employer] [facility] to discuss [place] L[facility]. She also had questions about filing for SSDI for patient. Lower In Supervisor suggested that she contact with ANTHONY Roy officeand make an appointment to speak with someone there. Lower In Supervisor also indicated that Mother should take along supportive friend as there can be a lot of information to digest and understand. A: Mother remains pleasant and actively engaged in treatment planning for patient. She is hopeful that he will be able to complete his rehab stay at [facility] but understands that he may need to go farther from home. P: Will continue to follow with team, liaison with Mother. Available to assist as needed/requested. 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 ?? IMPRESSION/ RECOMMENDATIONS: Chrsity Ambrose is a 57 y/o M with [...] -2.3 -2.6 .He also had laparoscopic left grindstone nephrectomy due to papillary renal cell ca [...] chronic kidney disease. -No acute indication for DECK MECHANIC ,,Strict intake and out put monitoring,Daily weights,Renal [...] kidney disease. - No acute indication for DECK MECHANIC, Strict intake and out put monitoring, Daily weights, Renal dosing for medications - Hypertension: was on hydralazine 50 mg BID,diltiazem 120 mg XT daily ,metorpolol 50 mg TID,losartan 25 mg daily at home.Will recommend to restart his home meds and continue holding losartan in the setting of TRISTIAN. Tim Ogden MD * Ajay Alexandre - 04/12/2018 2:08 PM EDT Academic Vice President Encounter Note Patient Name: Christy Ambrose : [id number] MR#: [id number] Admit Date: 04/06/2018 12:58 PM Hospital Day 6 days Narrative: Seen on repairer pump Rounds. Sitting in recliner. Cordial. Expression bemused, [...] chronic kidney disease. -No acute indication for DECK MECHANIC, Strict intake and out put monitoring, Daily weights, Renal dosing formedications - Hypertension: was on hydralazine 50 mg BID,diltiazem 120 mg XT daily ,metorpolol 50 mg TID,losartan 25 mg daily at home.Will recommend to restart his home meds and continue holding losartan in the setting of TRISTIAN. 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 -No acute indication for DECK MECHANIC ,,Strict intake and out put monitoring,Daily weights,Renal [...] 04/11/2018 Neurology resident, PGY-3 Vascular Neurology Pager [phone] Associated attestation - Tim Collins MD - [...] treatment session. Kelsey Hua, PT Pager # [phone] PT Evaluation Code Rationale: ?? Diagnosis & [...] ml/min N18.4 ??? 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 pt usually ambulates [...] Assessment/Treatment Assistive Device (Bed Mobility) bed rails Mhhain-eb-Ngv [place] (Bed Mobility) minimum assist (75% patient effort) Comment (Bed Mobility) HOB elevated Transfer Assessment/Treatment [place] (Sit-Stand Transfers) moderate assist (50% patient effort);verbal cues required;2 person assist required [place] (Stand-Sit Transfers) moderate assist (50% patient effort);verbal cues required;2 person assist required Hsz-Vdgmn-Eul Assistive Device (Transfers) rolling walker (initially transfered mod x2 w/o AD, poor balance) Safety Issues (Transfers) loses balance backward (lost balance forward initially) Impairments (Transfers) balance impaired;strength decreased;pain Comment (Transfers) cues for hand placement on RW Gait Assessment/Treatment [place] (Gait) moderate assist (50% patient effort);verbal cues [...] good balance Sitting Balance: Dynamic fair balance Zhu-gw-Hnkec Balance poor balance Standing Balance: Static poor [...] to sit/sit to sidelying Bed Mobility Goal, [place] Level independent Gait Training Goal Gait Training Goal, Date Established 04/11/18 Gait Training Goal, Time to Achieve 2 wks Gait Training Goal, [place] Level independent Gait Training Goal, Assist Device other (see comments) (LRD ) Gait Training Goal, Distance to Achieve 150 ft Transfer Training Goal Transfer Training Goal, Date Established 04/11/18 Transfer Training Goal, Time to Achieve 2 wks Transfer Training Goal, Activity Type all transfers Transfer Train Goal, [place] Level independent Transfer Training Goal, Assist Device [...] treatment session. Kelsey Hua PT Pager # [phone] * Karis Mejia MSW - 04/11/2018 1:15 PM EDT Discharge Planning: O: Requested by CANDY-RN to contact Mother re her concerns around housing. Lower In Supervisor spoke with Mother who relayed that she [...] and plans to speak with her local [place] [facility]. Lower In Supervisor suggested to Mother that she begin to have a conversation with them around [place] [facility] as that would be the payor source for patient. Mother is also interested in finding out what the discharge plan will be. Lower In Supervisor relayed that a CM-RN would be in [...] MD/NEHA, PGY-5 Section of Vascular Surgery, Pager [phone] * Tim Ogden MD - 04/10/2018 10:57 [...] Christy Ambrose Date of : 1960 PCP: Carrlol Garcia, DO ID: Christy Ambrose is a [...] 04/09/2018 Neurology resident, PGY-4 Vascular Neurology Pager [phone] ... I saw and evaluated the patient [...] MD/NEHA, PGY-5 Section of Vascular Surgery, Pager [phone] * Alfonzo Miles MD - 04/08/2018 4:56 [...] initiated. Alfonzo Miles MD [place] [address] Pager: [phone], #[phone] Email: [email or web address] * Sharmin Barth RN - 04/08/2018 12:34 PM EDT [facility] RESPONSE TEAM NOTE Name: Christy Chacko Arnol Age: 57 y.o. Sex; Male Date of : 1960 Responding Members: BENJAMIN ROGEL RCP Date/Time of Admission: 04/06/2018 12:58 PM Unit/Room: [facility] 4W Service: Vascular sx Attending: Quin Peter Warehouse General Laborer present? Yes Attending Contacted? Yes Time Activated: [...] f/u Wednesday as appropriate. Negrita Arnold OT #[id number] * Veronica Holt RN - 04/08/2018 12:09 [...] any questions. 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, suspected DVT on anticoagulation therapy with the Coumadin transferred from [facility] to [facility] on 04/06/18 for hemorrhagic shock status post [...] Latest Ref Range: Clear Hazy (A) Spec Hammond UA Latest Ref Range: 1.002 - 1.030 [...] can not be managed medically needing emergent DECK MECHANIC.No indication for dialysis/CVVH -Had good U.out put [...] tolerated to keep BP stable .currently on [id number] mg BID and hydralazine,labetolol IV prn #5.Ruptured [...] vascular,neurology teams Radha Hughes MD Nephrology Fellow #[id number] * Veronica Holt RN - 04/08/2018 9:47 [...] HTN, epilepsy,and prior TBI who presents to [facility] s/p LUE bleeding with PEA arrest. Description [...] Pt intubated in field. Pt taken to [facility], where second tourniquet applied and pt received 6U PRBC. Transferred to [facility] for further care. ?? Of note, per [...] Miguel Angel Moreno MD at [facility] MAIN OR ??? PRO DECOMPRESS FOREARM, BRACH ART EXPLOR Left 04/06/2018 FASCIOTOMY, FOREARM, WITH BRACHIAL ARTERY EXPLORATION (WRVU 8.41) performed by Lida Peter, Laureent [facility] MAIN OR ??? PRO DIRECT REPAIR RUPTURED ANEURYSM, AXILLO-BRACHIAL ARM INCIS Left 04/06/2018 @REPAIR, RUPTURED AXILLARY OR BRACHIAL ARTERY ANEURYSM BY ARM INCISION (WRVU *) performed by Lida Peter MD at [facility] MAIN OR ??? PRO EXC PAROTD, TOTAL, [...] 4.0CM, TRUNK performed by SABRINA MEDRANO at [facility] OR ??? PRO LAP, RADICAL NEPHRECTOMY Left 05/31/2017 @LAPAROSCOPY, RADICAL NEPHRECTOMY (WRVU 25.06) performed by Jax Mills MD at [facility] OR ??? PRO REBL VES GRAFT, UP EXTREM Left 04/06/2018 REPAIR BLOOD VESSEL WITH GRAFT OTHER THAN VEIN, UPPER EXTREMITY (WRVU 15.83) performed by Lida Peter MD at [facility] OR ??? PRO RELIEVE PRESSURE ON NERVE(S) Left 04/06/2018 (MSURG) CARPAL TUNNEL (WRVU 4.82) performed by Hay Sparks MD at [facility] OR ??? PRO REPAIR INTERMEDIATE S/A/T/E 2.6-7.5 CM 04/19/2012 REPAIR INTERMEDIATE WOUND, (NO HANDS OR FEET) 2.6 TO 7.5CM, UPPER EXTREMITY performed by SABRINA MEDRANO at [facility] OR ??? PRO REVISE MEDIAN N/CARPAL TUNNEL SURG Left 04/06/2018 MEDIAN NERVE DECOMPRESSION (CARPAL TUNNEL RELEASE) (WRVU 4.97) performed by Lida Peter MD [facility] MAIN OR ? ? PRO SPLIT GRFT, HEAD, FAC, HAND, FEET <100SQCM N/A 02/20/2016 SPLIT THICKNESS SKIN SPLIT GRAFT,100SQ CM OR LESS, NECK performed by Miguel Angel Moreno MD at [facility] MAIN OR ??? PRO UPPER GI ENDOSCOPY, BIOPSY N/A 05/13/2017 EGD WITH BIOPSY (WRVU 2.49) performed by Aditya Barrera MD at [facility] ENDOSCOPY ??? PRO VASCULAR SURGERY PROCEDURE UNLIST Left 11/20/2015 LIGATION\REPAIR AV FISTULA performed by Camilo Ireland MD at [facility] MAIN OR ??? PRO VASCULAR SURGERY PROCEDURE UNLIST Left 11/20/2015 EXCISION VEIN FROM HAND performed by Camilo rIeland MD at [facility] MAIN OR ??? 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 [...] epilepsy, and prior TBI who presents to [facility] s/p hemorrhagic shock and PEA arrest from [...] care per primary Vascular team. Please page #[phone] for any further questions or concerns. Procedures: [...] vascular floor CODE: FULL Incidental Findings: -none Sarbina Armas MD 04/07/2018 Trauma pager [phone] * Apple Gutierrez MD - 04/07/2018 6:59 [...] to touch. Pt transferred to [facility] with all belongings. Report given to oncoming RN. * Natalya Minaya MD - 04/08/2018 12:59 PM EDT Critical Care - Admission Note History of Present Illness: Christy Ambrose is a 57 y/o M w/ PMH developmental delay, epilepsy, IGA nephropathy (s/p renal transplant 2002, on tac & mycophenalate) left grindstone nephrectomy (2016), HTN who was found down on 04/06 at his home w/ bleeding from L AVF. He had PEA arrest, ROSC w/ chest compressions, 1 dose epi. Tourniquet applied to L arm in field, pt intubated and brought to [facility]. Received 6 units PRBC & transferred to [facility]. On arrival [facility] 11, taken to OR [...] ??? alf current use of immunosuppressive drug Z79.89 ??? [...] at [facility] OR ??? PRO DECOMPRESS FOREARM, [...] 4.0CM, TRUNK performed by SABRINA MEDRANO at [facility] OR ??? PRO LAP, RADICAL NEPHRECTOMY Left 05/31/2017 @LAPAROSCOPY, RADICAL NEPHRECTOMY (WRVU 25.06) performed by Jax Mills MD at [facility] OR ??? PRO REBL VES GRAFT, UP EXTREM Left 04/06/2018 REPAIR BLOOD VESSEL WITH GRAFT OTHER THAN VEIN, UPPER EXTREMITY (WRVU 15.83) performed by Lida Peter MD at [facility] MAIN OR ??? PRO RELIEVE PRESSURE ON NERVE(S) Left 04/06/2018 (MSURG) CARPAL TUNNEL (WRVU 4.82) performed by Hya Sparks MD at [facility] MAIN OR ??? PRO REPAIR INTERMEDIATE S/A/T/E 2.6-7.5 CM 04/19/2012 REPAIR INTERMEDIATE WOUND, (NO HANDS OR FEET) 2.6 TO 7.5CM, UPPER EXTREMITY performed by SABRINA MEDRANO at [facility] MAIN OR ??? PRO REVISE MEDIAN N/CARPAL TUNNEL SURG Left 04/06/2018 MEDIAN NERVE DECOMPRESSION (CARPAL TUNNEL RELEASE) (WRVU 4.97) [facility] ? ? PRO SPLIT GRFT, HEAD, FAC, HAND, FEET <100SQCM N/A 02/20/2016 SPLIT THICKNESS SKIN SPLIT GRAFT,100SQ CM OR LESS, NECK performed by Miguel Angel Moreno MD at [facility] MAIN OR ??? PRO UPPER GI ENDOSCOPY, BIOPSY N/A 05/13/2017 EGD WITH BIOPSY (WRVU 2.49) performed by Aditya Barrera MD at [facility] ENDOSCOPY ??? PRO VASCULAR SURGERY PROCEDURE UNLIST Left 11/20/2015 LIGATION\REPAIR AV FISTULA performed by Camilo Ireland MD at [facility] MAIN OR ??? PRO VASCULAR SURGERY PROCEDURE UNLIST Left 11/20/2015 EXCISION VEIN FROM HAND performed by Camilo Ireland MD at [facility] MAIN OR ??? 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 [...] 7.27* PO2ART 65* 152* 168* 228* 379* [id number] 31* 34* 39 40 36 BEART -11.8* [...] Body Fluid Culture, Aerobic & Anaerobic Fluid [[id number]] Collected: 04/06/18 141 ? Lab Status: Preliminary result Specimen: Fluid Updated: 04/07/18 1332 ? Body Fluid Culture, Aerobic [[id number]] Collected: 04/06/181414 ? Lab Status: Preliminary result Specimen: Fluid Updated: 04/07/18 0804 ? Body Fluid Culture Few normal cutaneous shaina ? Gram Stain -- ? Few Neutrophils seen No microorganisms seen. ? Anaerobic Culture [[id number]] Collected: 04/06/18 1415 ? Lab Status: Preliminary [...] can not be managed medically needing emergent DECK MECHANIC.No indication for dialysis/CVVH -Had good U.out put [...] tolerated to keep BP stable .currently on [id number] mg BID and hydralazine,labetolol IV prn ?? [...] Disposition: Critical Care Red 1 Team (pager [phone]) Natalya Minaya MD 04/08/2018 * Erwin Marino MD - 04/06/2018 5:03 PM EDT Critical Care - Admission Note History of Present Illness: Christy Ambrose is a 57 y.o. male with PMH of HTN, TBI w/ epilepsy, gout, IgA nephropathy s/p donor renal transplant 2002 (on tacrolimus and cellcept) complicated by delayed graft function andrecurrent IgA nephropathy and Prograf toxicity, laparoscopic L grindstone radical nephrectomy May 2017 for papillary carcinoma, HTN, previous revision of L AVF due to massive size. Recently put on coumadin for infection of left forearm with swelling, suspected to be DVT. Presents to [facility] with hemorrhagic shock s/p PEA arrest secondary to torrential left upper extremity fistula bleeding. Per EMS the patient had a severe amount of blood loss in the bathroom and bedroom that resulted in PEA cardiac arrest at the scene. He received epinephrine, 2.5 L of normal saline with ROSC obtained. Arrived at [facility] and sedated and then received 6 [...] 4.0CM, TRUNK performed by SABRINA MEDRANO at [facility] OR ??? PRO LAP, RADICAL NEPHRECTOMY Left 05/31/2017 @LAPAROSCOPY, RADICAL NEPHRECTOMY (WRVU 25.06) performed by Jax Mills MD at [facility] MAIN OR ??? PRO REPAIR INTERMEDIATE S/A/T/E 2.6-7.5 CM 04/19/2012 REPAIR INTERMEDIATE WOUND, (NO HANDS OR FEET) 2.6 TO 7.5CM, UPPER EXTREMITY performed by SABRINA MEDRANO at [facility] MAIN OR ? ? PRO SPLIT GRFT, HEAD, FAC, HAND, FEET <100SQCM N/A 02/20/2016 SPLIT THICKNESS SKIN SPLIT GRAFT,100SQ CM OR LESS, NECK performed by Miguel Angel Moreno MD at [facility] MAIN OR ??? PRO UPPER GI ENDOSCOPY, BIOPSY N/A 05/13/2017 EGD WITH BIOPSY (WRVU 2.49) performed by Aditya Barrera MD at [facility] ENDOSCOPY ??? PRO VASCULAR SURGERY PROCEDURE UNLIST Left 11/20/2015 LIGATION\REPAIR AV FISTULA performed by Camilo Ireland MD at [facility] MAIN OR ??? PRO VASCULAR SURGERY PROCEDURE UNLIST Left 11/20/2015 EXCISION VEIN FROM HAND performed by Camilo Ireland MD at [facility] MAIN OR ??? 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 [...] mcL Appearance UA Hazy (A) Clear Spec Hammond UA 1.023 1.002 - 1.030 Color UA [...] No microorganisms seen. Radiology: XR Chest and [id number] 04/06 Prominence of the superior mediastinum may [...] Ambrose Level of Activation: Trauma 9 MR#: [id number] [ ]Scene Call or [X]Hospital Transfer : [id number] CC/MECHANISM OF INJURY: 57 y.o. Male s/p [...] HTN, epilepsy,and prior TBI who presents to [facility] s/p LUE bleeding with PEA arrest. Description [...] Pt intubated in field. Pt taken to [facility], where second tourniquet applied and pt received 6U PRBC. Transferred to [facility] for further care. Of note, per Dr. [...] WITH UNILATERAL RADICAL NECK DISSECTION performed by iMguel Angel Moreno MD at [facility] OR ??? PRO EXC SKIN MALIG 3.1-4CM FACE, FACIAL Left 02/05/2016 EXC MALIGNANT LESION, 3.1 TO 4.0CM, FACE performed by Miguel Angel Moreno MD at [facility] OR ? ? PRO EXC SKIN MALIG >4CM TRUNK, ARM, LEG 04/19/2012 EXC MALIGNANT LESION, MICHAEL > 4.0CM, TRUNK performed by SABRINA MEDRANO at [facility] OR ??? PRO LAP, RADICAL NEPHRECTOMY Left 05/31/2017 @LAPAROSCOPY, RADICAL NEPHRECTOMY (WRVU 25.06) performed by Jax Mills MD at [facility] MAIN OR ??? PRO REPAIR INTERMEDIATE S/A/T/E 2.6-7.5 CM 04/19/2012 REPAIR INTERMEDIATE WOUND, (NO HANDS OR FEET) 2.6 TO 7.5CM, UPPER EXTREMITY performed by SABRINA MEDRANO at [facility] MAIN OR ? ? PRO SPLIT GRFT, HEAD, FAC, HAND, FEET <100SQCM N/A 02/20/2016 SPLIT THICKNESS SKIN SPLIT GRAFT,100SQ CM OR LESS, NECK performed by Miguel Angel Moreno MD at [facility] MAIN OR ??? PRO UPPER GI ENDOSCOPY, BIOPSY N/A 05/13/2017 EGD WITH BIOPSY (WRVU 2.49) performed by Aditya Barrera MD at [facility] ENDOSCOPY ??? PRO VASCULAR SURGERY PROCEDURE UNLIST Left 11/20/2015 LIGATION\REPAIR AV FISTULA performed by Camilo Ireland MD at [facility] MAIN OR ??? PRO VASCULAR SURGERY PROCEDURE UNLIST Left 11/20/2015 EXCISION VEIN FROM HAND performed by Camilo Ireland MD at [facility] MAIN OR ??? 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 [...] mcL Appearance UA Hazy (A) Clear Spec Hammond UA 1.023 1.002 - 1.030 Color UA [...] epilepsy, and prior TBI who presents to [facility] s/p LUE bleeding with PEA arrest now [...] to the planned procedure. Hand Hygiene: The steel box toe inserter did perform hand hygiene prior to line insertion. Catheter type: PICC Lot number: [id number] Procedure Technique: Skin was prepped with chlorhexidine. [...] vac dressing completed. Left forearm wound measures [id number] with clean, well granulated base. PANCHITO Eng [...] Reyna MD - 04/09/2018 9:03 AM EDT [facility] Department of Neurology Critical [...] in the Intensive Care Unit by the [facility] Clinical Neurophysiology Laboratory. The 10/20 [...] PM EDTAssociated Order(s): EEG AWAKE, ASLEEP, DROWSY [facility] Department of Neurology In [...] tablet 50 mg 50 mg Oral Q8H [facility] Angelika Aguilera M, PA 50 mg [...] channel digitized electroencephalogram was performed in the [facility] Clinical Neurophysiology Laboratory. The 10/20 international system of electrode placement was used and bipolar and referential electrode montages were recorded. In addition to EEG the patient was monitored for EKGand lateral/vertical eye movements. Video was recorded during the session. The duration of the recording was 30 minutes. PITCH FLAKER'S REPORT: Performed by: AT Patient was not [...] Eyes on Surveillance [continuous indirect monitoring]: mariela Alafro rounding, near nursing station Patient-specific fall prevention [...] briefly with patient to update him that [facility] in [place], [place] is reviewing him for possible admission this week. Pt was appreciative for this news. Pt [facility] filed for [facility] with [facility]. Pt's staff nurse Lalitha mensah. I was going to call pt's brother Lucas to discuss. ATTACHE Sandeep aWn had just talked with pt's brother and mother Ilda and informed me that a tentative family meeting has been set up for tomorrow at 3:00 pm. CM will be part of the meeting; will continue to follow. Padmini Ruiz RN [phone] * Plan of Care - Naz Robbins [...] 04/30/18 1903 Health Knowledge, Opportunity to Enhance (Adult,NICU,[place],Obstetrics,Pediatric) Knowledgeable about Health Subject/Topic making progress toward [...] PRN PICC dressing change completed as per [facility] protocol. yes Positive pressure displacement connector (Max [...] 04/27/2018 3:19 PM EDT OFFICE OF CARE MANAGEMENT/Feather Washer/PROGRESS NOTE e-DH reviewed. Report received from vascular. [...] broughthim in. 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 a can of soup with my [...] Assessment/Treatment Assistive Device (Bed Mobility) bed rails Ypn-nc-Spchql [place] (Bed Mobility) conditional independence Impairments (Bed Mobility) flexibility decreased;ROM (range of motion) decreased;strength decreased Comment (Bed Mobility) HOB slightyly elevated; vc's to adjust HOB Transfer Assessment/Treatment Chair-Bed [place] (Transfers) contact guard assist [place] (Sit-Stand Transfers) contact guard assist [place] (Stand-Sit Transfers) contact guard assist [place] (Toilet Transfers) (pt continues to report ambulating to bathrom for toileting) Impairments (Transfers) balance impaired;ROM (range of motion) decreased;strength decreased Gait Assessment/Treatment [place] (Gait) contact guard assist Assistive Device (Gait) gait belt Distance in Feet (Gait) 750' Safety Issues (Gait) balance decreased during turns;step length decreased Impairments (Gait) balance impaired;coordination impaired Comment (Gait) mild ataxia; no lob noted; assist to carry wound vac Lower Body Dressing Assessment/Training Position (LB Dressing) standing [place] Level (LB Dressing) contact guard assist Impairments [...] good balance Sitting Balance: Dynamic fair balance Qgv-as-Gvlmd Balance fair balance Standing Balance: Static fair [...] ?? I have met with the patient/sales representatives to discuss discharge planning needs. I have provided the [facility], Office of Care Management letter from the Operational Communication Chief pertaining to rehab referrals. I have also provided a letter describing our affiliations within the [facility] and educated them about their right to choose where referrals are placed. ?? I reviewed the different levels of rehab including SNF, swing, acute and LTAC with the patient/sales representatives. ?? The patient/sales representatives has been provided a list of facilities within their preferred geographic area. ?? I have requested that the patient/sales representatives provide at least three choices for referral. ?? The patient/sales representatives have requested referrals to: ?? 1. [facility] ?? 2. [facility] ?? 3. [facility]. View ?? Expected date of discharge: 3-5 days Note routed to Handkerchief Sample Clerk who will communicate referrals to facilities and provide any required information. * Plan of Care - Helen Denny RN - 04/27/2018 10:22 AM EDT Problem: Health Knowledge, Opportunity to Enhance (Adult,NICU,,Obstetrics,Pediatric) Goal: Knowledgeable about Health Subject/Topic Patient will demonstrate the desired outcomes by discharge/transition of care. Peripherally Inserted Central Catheter (PICC) Teaching Sheet Peripherally inserted central catheters (ccid-pq-ovjv) (PICC) are used when you need IV [...] catheter? PICC lines are used for terminal computer operator treatments. PICC lines may be used [...] can be set up via the nurse Feather Washer to help you. What are possible complications [...] Vascular Access Device Selection, Insertion, and Management, [employer] Access Systems 04/15. A Review of the Efficacy, Safety, Use, and Administration of [employer], [employer] 2005 * Plan of Care - [...] listening utilized Goal: Discharge Needs Assessment 04/18/18 9872 Discharge Needs Assessment Concerns To Be Addressed [...] agency transportation Goal: Interdisciplinary Rounds/Family Conf 04/25/18 2607 Interdisciplinary Rounds/Family Conf Participants nursing;patient Problem: Seizure [...] Sparks MD - 04/26/2018 12:40 PM EDT [facility] Operative Note Patient Name: Christy Ambrose : [id number] MR#: [id number] Case Date: 04/26/2018 Surgeon: Surgeon(s) and Role: [...] Aditi Mccollum MD Plastic Surgery Resident, pager [phone] Plastic surgery team pager: [phone] Attestation: Case Date: 04/26/2018 I was present and I participated during the entire procedure (does not need to include opening and closing). HAY SPARKS MD 04/27/2018 * Brief Op Note - Aditi Mccollum MD - 04/26/2018 12:36 PM EDT Brief Operative Note Patient Name: Christy Ambrose : [id number] MR#: [id number] Case Date: 04/26/2018 Surgeon: Surgeon(s) and Role: [...] post-op. * Plan of Care - Meghan Sadns RN - 04/25/2018 2:38 PM EDT Problem: [...] Outcome: Ongoing (Interventions Implemented as Appropriate) 04/25/18 3116 Skin Integrity Impairment, Risk/Actual (Adult) Skin Integrity/Wound [...] Have About Your Health or Care? JUAN PABOL -- -- What Information Would Help Us [...] ml/min N18.4 ??? 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 PRO DECOMPRESS FOREARM, BRACH ART EXPLOR Left 04/06/2018 FASCIOTOMY, FOREARM, WITH BRACHIAL ARTERY EXPLORATION (WRVU 8.41) performed by Lida Peter MDat [facility] MAIN OR ??? PRO DIRECT REPAIR RUPTURED ANEURYSM, AXILLO-BRACHIAL ARM INCIS Left 04/06/2018 @REPAIR, RUPTURED AXILLARY OR BRACHIAL ARTERY ANEURYSM BY ARM INCISION (WRVU *) performed by Lida Peter MD at [facility] MAIN OR ??? PRO EXC PAROTD, TOTAL, [...] 4.0CM, TRUNK performed by SABRINA MEDRANO at [facility] OR ??? PRO LAP, RADICAL NEPHRECTOMY Left 05/31/2017 @LAPAROSCOPY, RADICAL NEPHRECTOMY (WRVU 25.06) performed by Jax Mills MD at [facility] OR ??? PRO LIGATN ANGIOACCESS AV FISTULA Left 04/19/2018 LIGATION OR BANDING OF HEMODIALYSIS FISTULA OR GRAFT UPPER EXTREMITY (WRVU 6.25) performed by Odalis Elias MD at [facility] MAIN OR ??? PRO NEGATIVE PRESSURE WOUND THERAPY, LESS THAN OR EQUAL TO 50 SQCM Left 04/19/2018 DRESSING CHANGE (VAC ASSISTED) UP TO 50SQ.CM (WRVU 0.55) performed by Odalis Elias MD [facility] OR ??? PRO REBL VES GRAFT, UP EXTREM Left 04/06/2018 REPAIR BLOOD VESSEL WITH GRAFT OTHER THAN VEIN, UPPER EXTREMITY (WRVU 15.83) performed by Liad Peter MD at [facility] OR ??? PRO RELIEVE PRESSURE ON NERVE(S) Left 04/06/2018 (MSURG) CARPAL TUNNEL (WRVU 4.82) performed by Hay Sparks MD at [facility] OR ??? PRO REPAIR INTERMEDIATE S/A/T/E 2.6-7.5 CM 04/19/2012 REPAIR INTERMEDIATE WOUND, (NO HANDS OR FEET) 2.6 TO 7.5CM, UPPER EXTREMITY performed by SABRINA MEDRANO at [facility] OR ? ? PRO REPAIR INTERMEDIATE S/A/T/E > 30.0 CM Left 04/14/2018 REPAIR INTERMEDIATE WOUND, (NO HANDS OR FEET) >30.0CM, UPPER EXTREMITY (WRVU 5) performed by Yimi Easton MD at [facility] MAIN OR ??? PRO REVISE MEDIAN N/CARPAL TUNNEL SURG Left 04/06/2018 MEDIAN NERVE DECOMPRESSION (CARPAL TUNNEL RELEASE) (WRVU 4.97) performed by Lida Peter MD [facility] MAIN OR ? ? PRO SPLIT GRFT, HEAD, FAC, HAND, FEET <100SQCM N/A 02/20/2016 SPLIT THICKNESS SKIN SPLIT GRAFT,100SQ CM OR LESS, NECK performed by Miguel Angel Moreno MD at [facility] MAIN OR ??? PRO UPPER GI ENDOSCOPY, BIOPSY N/A 05/13/2017 EGD WITH BIOPSY (WRVU 2.49) performed by Aditya Barrera MD at [facility] ENDOSCOPY ??? PRO VASCULAR SURGERY PROCEDURE UNLIST Left 11/20/2015 LIGATION\REPAIR AV FISTULA performed by Camilo Ireland MD at [facility] MAIN OR ??? PRO VASCULAR SURGERY PROCEDURE UNLIST Left 11/20/2015 EXCISION VEIN FROM HAND performed by Camilo Ireland MD at [facility] MAIN OR ??? 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 [...] as pending/add-on, please make patient NPO at [place] on Wednesday. Attending: Plan discussed and agree [...] management. Pt demonstrating increased ambulation w/ staff engineer and participating in functional ADL tasks. Pt will benefit from ongoing therapeutic interventions to achieve pt's and therapy goals. Please refer to associated flowsheet data listed below for treatment session details. Staff Recommendations: Encourage OOB activity and participation in all self care tasks Anticipated Discharge Disposition: (P) inpatient rehabilitation facility Pager: [phone] IRLANDA MUNOZ 04/22/2018 Occupational Therapy Rehabilitation Department [...] Level 0 Pain Goal 0 Transfer Assessment/Treatment [place] (Sit-Stand Transfers) supervision required [place] (Toilet Transfers) supervision required Assistive Device (Toilet Transfers) bracing Impairments (Transfers) strength decreased;balance impaired Comment (Transfers) assist for wound vac during toilet transfer; slightly impulsive Gait Assessment/Treatment [place] (Gait) supervision required Distance in Feet (Gait) 25 Impairments (Gait) balance impaired Comment (Gait) recliner <> bathroom ; witnessed pt ambulating unit w/ staff engineer ~300 Bathing Assessment/Training Comment (Bathing) pt had just completed bathing task prior to this writers arrival; pt reported assisting w/ shower cap and bathing ; Lower Body Dressing Assessment/Training Position (LB Dressing) sitting [place] Level (LB Dressing) verbal cues required;nonverbal cues [...] or Care? [facility]. What Questions Do You Have [...] Home with assist APURVA CASSIDY PTA Pager: [phone] Inpatient Physical Therapy Timed Up & Go [...] Assessment/Treatment Assistive Device (Bed Mobility) bed rails Rungae-ho-Slt [place] (Bed Mobility) conditional independence Comment (Bed Mobility) HOB flat, extra time required Gkh-jt-Vexdus [place] (Bed Mobility) conditional independence Transfer Assessment/Treatment [place] (Sit-Stand Transfers) supervision required [place] (Stand-Sit Transfers) supervision required Hty-Svpst-Wtc Assistive Device (Transfers) (no device) Maintain Weight Bearing Status (Transfers) cues to maintain weight bearing status Safety Issues (Transfers) balance decreased during turns Impairments (Transfers) balance impaired;strength decreased Comment (Transfers) Initial cues to not use L UE, impulsive, pt held wound vac with R UE Gait Assessment/Treatment [place] (Gait) supervision required Assistive Device (Gait) (no [...] to sit/sit to sidelying Bed Mobility Goal, [place] Level independent Bed Mobility Goal, Outcome Achieved goal ongoing Gait Training Goal Gait Training Goal, Date Established 04/11/18 Gait Training Goal, Time to Achieve 2 wks Gait Training Goal, [place] Level independent Gait Training Goal, Assist Device other (see comments) (LRD ) Gait Training Goal, Distance to Achieve 150 ft Gait Training Goal, Outcome goal ongoing Transfer Training Goal Transfer Training Goal, Date Established 04/11/18 Transfer Training Goal, Time to Achieve 2 wks Transfer Training Goal, Activity Type all transfers Transfer Train Goal, [place] Level independent Transfer Training Goal, Assist Device [...] Discharge Disposition: (P) inpatient rehabilitation facility Pager: [phone] IRLANDA MUNOZ 04/20/2018 Occupational Therapy Rehabilitation Department [...] Level 0 Pain Goal 0 Transfer Assessment/Treatment [place] (Sit-Stand Transfers) contact guard assist [place] (Stand-Sit Transfers) contact guard assist Crf-Swzgl-Ebz Assistive Device (Transfers) gait belt Safety Issues (Transfers) balance decreased during turns Impairments (Transfers) balance impaired;strength decreased Comment (Transfers) slightly impulsive at times; cues for safety awareness Gait Assessment/Treatment [place] (Gait) verbal cues required;nonverbal cues required (demo/gesture);contact guard assist Assistive Device (Gait) gait belt Distance in Feet (Gait) 300' Safety Issues (Gait) balance decreased during turns;step length decreased Impairments (Gait) balance impaired;strength decreased Comment (Gait) pt required mulit modal cues for directions; slightly impulsive; Lower Body Dressing Assessment/Training Position (LB Dressing) sitting;standing [place] Level (LB Dressing) set up required;verbal cues [...] good balance Sitting Balance: Dynamic fair balance Ahb-jz-Hywvr Balance fair balance Standing Balance: Static fair [...] DVT on coumadin who was transferred to [facility] for hemorrhagic shock with PEA arrest secondary to fistulableeding. He is a limited historian- history taken from chart- He had had some leaking from his LUEAVF site and was found by his mom in a pool of blood, pulseless. He was transfused 6 units of prbcsand transferred to [facility]. He had previous LAVF revision due to [...] father Social History and Habits: Lives in [place] with his mom. Non-smoker (quit 2000). No [...] Danielle Peoples DO Infectious Disease Fellow Pager [phone] Associated attestation - Katarzyna Guevara MD - [...] Junior MD - 04/19/2018 10:43 AM EDT [facility] Operative Note Patient Name: Christy Ambrose : [id number] MR#: [id number] Case Date: 04/19/2018 Surgeon: Surgeon(s) and Role: [...] Junior MD - 04/19/2018 10:25 AM EDT [facility] Operative Note Patient Name: Christy Ambrose : [id number] MR#: [id number] Case Date: 04/19/2018 Surgeon: Surgeon(s) and Role: [...] 04/18/2018 2:40 PM EDT OFFICE OF CARE MANAGEMENT/Feather Washer/PROGRESS NOTE e-DH reviewed. Report received from vascular [...] wound base. --Had AVF ultrasound today in [facility] lab to assess AVF --NPO [...] 04/15/2018 12:36 PM EDT OFFICE OF CARE MANAGEMENT/Feather Washer/PROGRESS NOTE e-DH reviewed. Report received from vascular [...] Discharge Disposition: (P) inpatient rehabilitation facility Pager: [phone] IRLANDA MUNOZ 04/15/2018 Occupational Therapy Rehabilitation Department [...] 0 Pain Goal 0 Transfer Assessment/Treatment Bed-Chair [place] (Transfers) contact guard assist Hez-Udknc-Nrs Assistive Device (Transfers) (IV pole for support ) [place] (Sit-Stand Transfers) set up required;verbal cues required;contact guard assist [place] (Stand-Sit Transfers) verbal cues required;contact guard assist Zsb-Clksi-Wrg Assistive Device (Transfers) (IV pole ) Safety Issues (Transfers) sequencing ability decreased;step length decreased;weight-shifting ability decreased Impairments (Transfers) balance impaired;strength decreased Comment (Transfers) cues for safe hand placement and task initation Gait Assessment/Treatment [place] (Gait) verbal cues required;contact guard assist Assistive [...] Body Dressing Assessment/Training Position (UB Dressing) sitting [place] Level (UB Dressing) contact guard assist Comment (UB Dressing) paco armstrong Grooming Assessment/Training Position (Grooming) sitting [place] Level (Grooming) set up required;verbal cues required;contact [...] Please contact Violetta Deng RN on pager [phone] or the wound care team at [phone] or pager [phone] with skin and wound care concerns or [...] for specific details, POC and goals. Recommendations SKIN PASS OPERATOR Diet Recommendation: regular solid, thin liquids Therapy Frequency: other (see comments) (D/C from speech intervention.) MIGUEL ANGEL PIERCE, YOUSIF Inpatient Speech Pathologist Pager: [phone] 04/15/18 1011 Rehab Evaluation Document Type therapy [...] Dysphagia Goal, Outcome goal met Clinical Impression SKIN PASS OPERATOR Swallowing Diagnosis other (see comments) (Functionally appearing oropharyngeal swallow) Rehab Potential/Prognosis, Swallowing good, to achieve stated therapy goals Therapy Frequency other (see comments) (D/C from speech intervention.) SKIN PASS OPERATOR Diet Recommendation regular solid;thin liquids * Plan [...] inpatient rehabilitation facility APURVA CASSIDY PTA Pager: [phone] Inpatient Physical Therapy 04/15/18 0994 Rehab Evaluation Document Type therapy note (daily [...] cook, clean independently. 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 pt usually ambulates w/o AD, but occasionally will walk w/ cane Pain Scale/Rating Pain Assessment Scale Word (verbal rating pain scale) Pain Level 0 Bed Mobility Assessment/Treatment Assistive Device (Bed Mobility) bed rails Xrmeky-la-Dbm [place] (Bed Mobility) supervision required Comment (Bed Mobility) HOB elevated, extra time required Safety Issues (Bed Mobility) decreased use of arms for pushing/pulling Impairments (Bed Mobility) strength decreased Transfer Assessment/Treatment [place] (Sit-Stand Transfers) contact guard assist [place] (Stand-Sit Transfers) contact guard assist Lnv-Dtfqj-Gql Assistive Device (Transfers) (IV pole) Safety Issues (Transfers) balance decreased during turns;step length decreased;loses balance backward Impairments (Transfers) balance impaired;strength decreased Comment (Transfers) Initially falling back onto bed with standing or marching in place, able to steady himself with the IV pole Gait Assessment/Treatment [place] (Gait) contact guard assist Assistive Device (Gait) [...] to sit/sit to sidelying Bed Mobility Goal, [place] Level independent Bed Mobility Goal, Outcome Achieved goal ongoing Gait Training Goal Gait Training Goal, Date Established 04/11/18 Gait Training Goal, Time to Achieve 2 wks Gait Training Goal, [place] Level independent Gait Training Goal, Assist Device other (see comments) (LRD ) Gait Training Goal, Distance to Achieve 150 ft Gait Training Goal, Outcome goal ongoing Transfer Training Goal Transfer Training Goal, Date Established 04/11/18 Transfer Training Goal, Time to Achieve 2 wks Transfer Training Goal, Activity Type all transfers Transfer Train Goal, [place] Level independent Transfer Training Goal, Assist Device [...] -- 15 Score -- -- 100 OTHER aCtarino Fall Risk -- -- High Restraint Interventions [...] Easton MD - 04/14/2018 8:19 AM EDT [facility] Operative Note Patient Name: Christy Ambrose : [id number] MR#: [id number] Case Date: 04/14/2018 Surgeon: Surgeon(s) and Role: [...] he was found down. [facility] 2 tourniquets on since [...] ?? I have met with the patient/sales representatives to discuss discharge planning needs. I have provided the [facility], Office of Care Management letter from the Operational Communication Chief pertaining to rehab referrals. I have also provided a letter describing our affiliations within the [facility] and educated them about their right to choose where referrals are placed. ?? I reviewed the different levels of rehab including SNF, swing, acute and LTAC with the patient/sales representatives. ?? The patient/sales representatives has been provided a list of facilities within their preferred geographic area. ?? I have requested that the patient/sales representatives provide at least three choices for referral. ?? The patient/sales representatives have requested referrals to: ?? 1. [facility]. ?? 2. [facility] ?? 3. ?? Expected date of discharge: next 24- 48 hours Note routed to Handkerchief Sample Clerk who will communicate referrals to facilities and [...] epilepsy, and prior TBI who presents to [facility] s/p LUE bleeding with PEA arrest. Description [...] Pt intubated in field. Pt taken to [facility], where second tourniquet applied and pt received 6U PRBC. Transferred to [facility]. Per H and P Dr. Burkett. Past Medical History: Diagnosis Date ??? BP (high blood pressure) ??? DVT (deep venous thrombosis) ??? Gout ??? Hypertension ??? Kidney problem ??? Pneumonia ??? TBI (traumatic brain injury) 1980 Hospitalizations Within the Past 30 Days: [facility] Anticipated Length Of Stay (If known): Expected Length of Hospitalization: 5-7 days Current Decision-Making Capacity: Alert but confused. Awakes when I speak but confused when answering. Advance Care Planning: Adv. Directives are from 2010, pt's POA is brother Lucas Amborse who resides in [place], pat's 86 year old mother Ilda [...] Insurance: N/A Prescription Coverage: yes Preferred Pharmacy: [facility] in [place], [place]. Primary Care Provider: Carroll Garcia DO [phone] Patient/Caregiver Goals of Treatment: to go to [...] longer needed); will follow up with Transplant Nephrology/[facility] today Plan: to go to acute rehab at discharge. A member of the Care Management team will continue to monitor progress, follow for continuity of care and assist with transition of care planning. [place] Leong RN Pager: [phone] * Care Management - [place] Leong RN - 04/12/2018 2:33 PM EDT Based on discussions with the multi-disciplinary healthcare team, the patient would benefit from acute inpatient rehab. level of care at discharge. ?? I have met with the patient/sales representatives to discuss discharge planning needs. I have provided the [facility], Office of Care Management letter from the Operational Communication Chief pertaining to rehab referrals. I have also provided a letter describing our affiliations within the [facility] and educated them about their right to choose where referrals are placed. ?? I reviewed the different levels of rehab including SNF, swing, acute and LTAC with the patient/sales representatives. ?? The patient/sales representatives has been provided a list of facilities within their preferred geographic area. ?? I have requested that the patient/sales representatives provide at least three choices for referral. ?? The patient/sales representatives have requested referrals to: ?? 1. [facility] [place], [place] ?? 2. [facility] ?? 3. [facility]. ?? Expected date of discharge: next 24-72 hours Note routed to Handkerchief Sample Clerk who will communicate referrals to facilities and provide any required information. * Consult Note - Ashlie Willis RPH - 04/12/2018 10:24 AM EDT Clinical Pharmacist Note - Renal Dose Adjustment for Antimicrobials Christy Ambrose (A# [id number]) is being treated with the following antimicrobial [...] Anticipated Discharge Disposition: inpatient rehabilitation facility Pager: [phone] RAFAELA ALONZO OT 04/11/2018 Occupational Therapy Rehabilitation [...] Comment Patient lives with his mother at [facility]. Ramp to enter, then elevator to 5th floor. Once inside, single floor. Tub shower, no chair. Regular bed Functional Level Prior Prior Functional Level Comment Reports independence with all ADL/IADL tasks. Drives. Works at the [employer]. Only ambulates with a cane on the [...] Assessment/Treatment Assistive Device (Bed Mobility) bed rails Ftsrob-fx-Qtd [place] (Bed Mobility) minimum assist (75% patient effort) Comment (Bed Mobility) HOB elevated Transfer Assessment/Treatment [place] (Sit-Stand Transfers) moderate assist (50% patient effort);2 person assist required;verbal cues required [place] (Stand-Sit Transfers) moderate assist (50% patient effort);2 person assist required;verbal cues required Jly-Thrtu-Shm Assistive Device (Transfers) (Initally stood w/o any AD. Poor balance ) Gait Assessment/Treatment [place] (Gait) moderate assist (50% patient effort);2 person [...] Body Dressing Assessment/Training Position (UB Dressing) sitting [place] Level (UB Dressing) minimum assist (75% patient effort) Lower Body Dressing Assessment/Training Position (LB Dressing) sitting [place] Level (LB Dressing) minimum assist (75% patient [...] were not included. Infiltration/Extravasation Scale Christy Ambrose [id number] IC18/IC18-A Infiltration appearance: Infiltration harm % for [...] to comfort. MD at the Pt's bedside. SALESPERSON BURIAL PLOTS CARING FOR THIS PATIENT WILL CONTINUE TO [...] chair to 2 hour intervals. Use a Muzooka chair cushion beneath patient at all times while in the chair. Reinforce teaching to shift weight every 15 minutes while in the chair. Following hospital standard for pressure ulcer prevention and skin care. Refer to adult/pediatric pressure ulcer prevention job aid in the clinical policy library. Wound care will follow weekly. Discussed plan with: RN: Elva Please contact MEAGHAN HOOD RN on pager [phone] or the wound care team at [phone] or pager [phone] with skin and wound care concerns or [...] Therapy Frequency: 2-3 times/wk MIGUEL ANGEL PIERCE, SKIN PASS OPERATOR Inpatient Speech Pathologist Pager: [phone] 04/08/18 9929 Rehab Evaluation Document Type evaluation Total Evaluation [...] patient (RN) Speech Language Pathology Goal Types SKIN PASS OPERATOR Goal Types Dysphagia Goal (Group) Dysphagia Goal Dysphagia Goal, Date Established 04/08/18 Dysphagia Goal, Time to Achieve by discharge Oral Nutritional Level Goal safely tolerates/maintains adequate oral nutrition;no signs/symptoms ofaspiration present Clinical Impression SKIN PASS OPERATOR Swallowing Diagnosis oral dysfunction;other (see comments) (Functionally appearing pharyngeal dysphagia. ) Rehab Potential/Prognosis, Swallowing good, to achieve stated therapy goals Therapy Frequency 2-3 times/wk SKIN PASS OPERATOR Diet Recommendation puree;thin liquids * Plan of [...] dose epi. Intubated in field. Arrived at [facility] ED intubated. Received 6 units pRBC. Transferred to [facility] and went to OR with vascular for [...] Miguel Angel Moreno MD at [facility] MAIN OR ??? PRO DECOMPRESS FOREARM, BRACH ART EXPLOR Left 04/06/2018 FASCIOTOMY, FOREARM, WITH BRACHIAL ARTERY EXPLORATION (WRVU 8.41) performed by Lida Peter MDat [facility] MAIN OR ??? PRO DIRECT REPAIR RUPTURED ANEURYSM, AXILLO-BRACHIAL ARM INCIS Left 04/06/2018 @REPAIR, RUPTURED AXILLARY OR BRACHIAL ARTERY ANEURYSM BY ARM INCISION (WRVU *) performed by Lida Peter MD at [facility] MAIN OR ??? PRO EXC PAROTD, TOTAL, UNILAT RAD NECK Left 02/05/2016 @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, TOTAL, WITH UNILATERAL RADICAL NECK DISSECTION performed by Miguel Angel Moreno MD at [facility] MAIN OR ??? PRO EXC SKIN MALIG 3.1-4CM FACE, FACIAL Left 02/05/2016 EXC MALIGNANT LESION, 3.1 TO 4.0CM, FACE performed by Miguel Angel Moreno MD at [facility] OR ? ? PRO EXC SKIN MALIG >4CM TRUNK, ARM, LEG 04/19/2012 EXC MALIGNANT LESION, MICHAEL > 4.0CM, TRUNK performed by SABRINA MEDRANO at [facility] OR ??? PRO LAP, RADICAL NEPHRECTOMY Left 05/31/2017 @LAPAROSCOPY, RADICAL NEPHRECTOMY (WRVU 25.06) performed by Jax Mills MD at [facility] MAIN OR ??? PRO REBL VES GRAFT, UP EXTREM Left 04/06/2018 REPAIR BLOOD VESSEL WITH GRAFT OTHER THAN VEIN, UPPER EXTREMITY (WRVU 15.83) performed by Lida Peter MD at [facility] MAIN OR ??? PRO RELIEVE PRESSURE ON NERVE(S) Left 04/06/2018 (MSURG) CARPAL TUNNEL (WRVU 4.82) performed by Hay Sparks MD at [facility] OR ??? PRO REPAIR INTERMEDIATE S/A/T/E 2.6-7.5 CM 04/19/2012 REPAIR INTERMEDIATE WOUND, (NO HANDS OR FEET) 2.6 TO 7.5CM, UPPER EXTREMITY performed by SABRINA MEDRANO at [facility] MAIN OR ??? PRO REVISE MEDIAN N/CARPAL TUNNEL SURG Left 04/06/2018 MEDIAN NERVE DECOMPRESSION (CARPAL TUNNEL RELEASE) (WRVU 4.97) performed by Lida Peter MD [facility] MAIN OR ? ? PRO SPLIT GRFT, HEAD, FAC, HAND, FEET <100SQCM N/A 02/20/2016 SPLIT THICKNESS SKIN SPLIT GRAFT,100SQ CM OR LESS, NECK performed by Miguel Angel Moreno MD at [facility] MAIN OR ??? PRO UPPER GI ENDOSCOPY, BIOPSY N/A 05/13/2017 EGD WITH BIOPSY (WRVU 2.49) performed by Aditya Barrera MD at [facility] ENDOSCOPY ??? PRO VASCULAR SURGERY PROCEDURE UNLIST Left 11/20/2015 LIGATION\REPAIR AV FISTULA performed by Camilo Ireland MD at [facility] MAIN OR ??? PRO VASCULAR SURGERY PROCEDURE UNLIST Left 11/20/2015 EXCISION VEIN FROM HAND performed by Camilo Ireland MD at [facility] MAIN OR ??? 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 [...] extension 5/5 R, Elbow flexion 5/5 R Inspector Metal Can LE: 5/5 R, 5/5 L Hip flexion [...] Decreased RBC Morphology Abnormal Ovalocytes 1-5 /HPF [place] Cells 1-5 /HPF BLOOD GAS 2 ARTERIAL [...] 04/07/2018 Neurology resident, PGY-3 Vascular Neurology Pager [phone] Standard [facility] Swallow Screen: This screen is to be [...] diet as medical provider deems appropriate. Consider SKIN PASS OPERATOR consult for full evaluation and diet recommendations. 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 Apparently patient was found at his home unresponsive and was pulseless requiring several rounds of chest compressions,epinephrine and IV fluid bolus with a return of spontaneous circulation.Intubated in the field and taken to [facility] received 6 units of the PRBCs,2 FFPs for hemoglobin of 4 and required 2 tourniquets for his AV fistula leaking. Transferred to [facility] and was taken to OR by vascular [...] 4.0CM, TRUNK performed by SABRINA MEDRANO at [facility] OR ??? PRO LAP, RADICAL NEPHRECTOMY Left 05/31/2017 @LAPAROSCOPY, RADICAL NEPHRECTOMY (WRVU 25.06) performed by Jax Mills MD at [facility] OR ??? PRO REPAIR INTERMEDIATE S/A/T/E 2.6-7.5 CM 04/19/2012 REPAIR INTERMEDIATE WOUND, (NO HANDS OR FEET) 2.6 TO 7.5CM, UPPER EXTREMITY performed by SABRINA MEDRANO at [facility] OR ? ? PRO SPLIT GRFT, HEAD, FAC, HAND, FEET <100SQCM N/A 02/20/2016 SPLIT THICKNESS SKIN SPLIT GRAFT,100SQ CM OR LESS, NECK performed by Miguel Angel Moreno MD at [facility] OR ??? PRO UPPER GI ENDOSCOPY, BIOPSY N/A 05/13/2017 EGD WITH BIOPSY (WRVU 2.49) performed by Aditya Barrera MD at [facility] ENDOSCOPY ??? PRO VASCULAR SURGERY PROCEDURE UNLIST Left 11/20/2015 LIGATION\REPAIR AV FISTULA performed by Camilo Ireland MD at [facility] MAIN OR ??? PRO VASCULAR SURGERY PROCEDURE UNLIST Left 11/20/2015 EXCISION VEIN FROM HAND performed by Camilo Ireland MD at [facility] MAIN OR ??? US RENAL [...] Latest Ref Range: Clear Hazy (A) Spec Hammond UA Latest Ref Range: 1.002 - 1.030 [...] w/ Dr.Chobanian Radha Hughes MD Nephrology Fellow #[id number] * Op Note - Bhargavi Junior MD - 04/07/2018 7:56 AM EDT [facility] Operative Note Patient Name: Christy Ambrose : [id number] MR#: [id number] Case Date: 04/06/2018 Surgeon: Surgeon(s) and Role: [...] he was found down. He presented to [facility] in hemorrhagic shock with 2 tourniquets on [...] Implant Name Type Inv. Item Serial No. Steeple Jack Lot No. LRB No. Used Action PATCH,BIOL,XENOSURE,.8X8CM ([id number]) - [id number] IMPLANTS PATCH,BIOL,XENOSURE,.8X8CM ([id number]) 0 [facility] [id number] Implanted Infection Bundle used? No, ancef [...] Operative Note Patient Name: Christy Ambrose : [id number] MR#: [id number] Case Date: 04/06/2018 Surgeon: Surgeon(s) and Role: [...] Sparks MD - 04/06/2018 4:00 PM EDT [facility] [place]ative Note Patient Name: Christy Ambrose : [id number] MR#: [id number] Case Date: 04/06/2018 Surgeon: Surgeon(s) and Role: [...] IMPLANTABLE DEVICES SCAN 04/06/2018 12:00 AM EDT MEDICAID ANALYST SCAN 04/06/2018 12:00 AM EDT FILM LIBRARY STORAGE ONLY CT HEAD AND SPINE STAT 04/06/2018 12:00 AM EDT documented in this encounter Results * (ABNORMAL) Basic Metabolic Panel (non-fasting) (05/04/2018 3:00 AM EDT) Glucose 100 65 - 199 mg/dL [facility] Comment:Diabetes: >=200 mg/d L plus symptoms Blood Urea Nitrogen 40(H) 10 - 20 mg/dL [facility] Creatinine 3.05(H) 0.80 - 1.50 mg/dL [facility] Sodium 131(L) 135 - 145 mmol/L [facility] [...] Filtration Rate 22(L) >=60 mL/min/1. 73 m?? [facility] Comment: The eGFR was calculated using the CKD-EPI equation. As with all creatinine based estimates of kidney function, eGFR values calculated with the CKD-EPI equation are not accurate in patients with acute kidney failure, extremes of body mass or the acutely ill. [email or web address] eGFR 25(L) >=60 mL/min/1. 73 m?? [facility] Comment: The eGFR was calculated using the CKD-EPI equation. As with all creatinine based estimates of kidney function, eGFR values calculated with the CKD-EPI equation are not accurate in patients with acute kidney failure, extremes of body mass or the acutely ill. [email or web address] Blood specimen (specimen) 05/04/2018 3:00 AM EDT 05/04/2018 3:08 AM EDT Narrative Resulting Agency Comment Spec In Lab Hay Sparks MD CHEMISTRY ORDERABLES Performing Organization Address [facility] Co de Phone Number [facility] [place] [address] * Vancomycin, trough (05/03/2018 6:40 PM EDT) Pathologist [facility] Vancomycin, Trough 14.2 mg/L [facility] Comment: Therapeutic range for [...] Sparks MD CHEMISTRY ORDERABLES Performing Organization Address [facility] Co de Phone Number [facility] [place] [address] * Differential, Automated (05/03/2018 3:06 AM EDT) Pathologist [facility] Neutrophil % 60.8 % [facility] Neutrophil Absolute 3.01 1.70 - 6.10 x10(3)/[facility] Lymph % 19.8 % [facility] Lymphocytes Abs 1.0 0.9 - 3.2 x10(3)/[facility] Monocyte % 10.7 % [facility] Monocyte Abs 0.5 0.3 - 0.9 x10(3)/[facility] Eos % 8.1 % [facility] Eosinophils Abs 0.4 0.0 - 0.4 x10(3)/[facility] Basophil % 0.4 % [facility] Baso Absolute 0.0 0.0 - 0.1 x10(3)/[facility] Immature Gran % 0.20 % [facility] Comment: Immature granulocytes(IG's)percentage and absolute count will include metamyelocytes, myelocytes, and promyelocytes. Blood smears from CBCs yielding IG's will be scanned manually for concordance. If this scan disagrees with the automated IG or if promyelocytes are noted, a manual differential will be performed. Immature Gran Absolute 0.01 0.00 - 0.04 x10(3)/[facility] Blood specimen (specimen) 05/03/2018 3:06 AM EDT 05/03/2018 3:16 AM EDT Narrative Resulting Agency Comment Spec In Lab Apple Gutierrez MD HEMATOLOGY ORDERABLE S [facility] [place] [address] * (ABNORMAL) Hemogram (05/03/2018 3:06 AM EDT) White Blood Cell 5.0 4.0 - 9.5 x10(3)/[facility] Red Blood Cell 2.64(L) 4.58 - 5.54 x10(6)/mc L [facility] Hemoglobin 8.2(L) 13.7 - 16.5 gm/dL [facility] Hematocrit 25.1(L) 40.5 - 48.5 % [facility] Mean Cell Volume 95.1(H) 82.9 - 93.1 [facility] Mean Cell Hemoglobin 31.1 27.5 - 32.1 pg [facility] Mean Cell Hemoglobin Concentration 32.7 32.0 - 35.7 gm/dL [facility] Platelet 160 145 - 357 x10(3)/ L [facility] RDW Standard Deviation 54.3(H) 36.0 - 45.0 [facility] RDW coefficient of variation 15.6(H) 11.4 - 13.8 % [facility] Mean Platelet Volume 9.0 7.6 - 12.9 fL [facility] NRBC% auto 0.0 % [facility] NRBC Absolute 0.000 0.000 - 0.000 x10(3)/mc L [facility] Blood specimen (specimen) 05/03/2018 3:06 AM EDT 05/03/2018 3:16 AM EDT Narrative Resulting Agency Comment Spec In Lab Apple Gutierrez MD HEMATOLOGY ORDERABLE S [facility] [place] [address] * (ABNORMAL) Basic Metabolic Panel (non-fasting) (05/03/2018 3:06 AM EDT) Glucose 99 65 - 199 mg/dL [facility] Comment:Diabetes: >=200 mg/d L plus symptoms Blood Urea Nitrogen 35(H) 10 - 20 mg/dL [facility] Creatinine 2.58(H) 0.80 - 1.50 mg/dL [facility] Sodium 135 135 - 145 mmol/L [facility] Potassium 4.2 3.5 - 5.0 mmol/L [facility] Comment: Please note: ??Patients with WBC >100,000 may have falsely elevated Potassium levels. ??For accurate Potassium quantification in these patients send serum separator tube (gold top) for subsequent determinations. ??Contact the Clinical Chemistry Laboratory if there are any questions. Chloride 101 98 - 107 mmol/L [facility] Carbon Dioxide 20(L) 22 - 31 mmol/L [facility] Anion Gap 14 5 - 15 mmol/L [facility] Calcium 7.9(L) 8.5 - 10.5 mg/dL [facility] Est Glomerular Filtration Rate 27(L) >=60 mL/min/1. 73 m?? [facility] Comment: The eGFR was calculated using the CKD-EPI equation. As with all creatinine based estimates of kidney function, eGFR values calculated with the CKD-EPI equation are not accurate in patients with acute kidney failure, extremes of body mass or the acutely ill. [email or web address] eGFR 31(L) >=60 mL/min/1. 73 m?? [facility] Comment: The eGFR was calculated using the CKD-EPI equation. As with all creatinine based estimates of kidney function, eGFR values calculated with the CKD-EPI equation are not accurate in patients with acute kidney failure, extremes of body mass or the acutely ill. [email or web address] Blood specimen (specimen) 05/03/2018 3:06 AM EDT 05/03/2018 3:16 AM EDT Narrative Resulting Agency Comment Spec In Lab Hay Sparks MD CHEMISTRY ORDERABLES Performing Organization Address City/State/[facility] Co de Phone Number [facility] [place] [address] * Differential, Automated (05/02/2018 3:20 AM EDT) Neutrophil % 60.2 % [facility] Neutrophil Absolute 2.89 1.70 - 6.10 x10(3)/[facility] Lymph % 20.8 % [facility] Lymphocytes Abs 1.0 0.9 - 3.2 x10(3)/[facility] Monocyte % 9.2 % [facility] Monocyte Abs 0.4 0.3 - 0.9 x10(3)/[facility] Eos % 8.8 % [facility] Eosinophils Abs 0.4 0.0 - 0.4 x10(3)/[facility] Basophil % 0.6 % [facility] Baso Absolute 0.0 0.0 - 0.1 x10(3)/[facility] Immature Gran % 0.40 % [facility] Comment: Immature granulocytes(IG's)percentage and absolute count will include metamyelocytes, myelocytes, and promyelocytes. Blood smears from CBCs yielding IG's will be scanned manually for concordance. If this scan disagrees with the automated IG or if promyelocytes are noted, a manual differential will be performed. Immature Gran Absolute 0.02 0.00 - 0.04 x10(3)/mcL [facility] Blood specimen (specimen) 05/02/2018 3:20 AM EDT 05/02/2018 3:26 AM EDT Narrative Resulting Agency Comment Spec In Lab Apple Gutierrez MD HEMATOLOGY ORDERABLE S [facility] [place] [address] * (ABNORMAL) Hemogram (05/02/2018 3:20 AM EDT) White Blood Cell 4.8 4.0 - 9.5 x10(3)/mc L [facility] Red Blood Cell 2.61(L) 4.58 - 5.54 x10(6)/mc L [facility] Hemoglobin 8.2(L) 13.7 - 16.5 gm/dL [facility] Hematocrit 24.6(L) 40.5 - 48.5 % [facility] Mean Cell Volume 94.3(H) 82.9 - 93.1 fL [facility] Mean Cell Hemoglobin 31.4 27.5 - 32.1 pg [facility] Mean Cell Hemoglobin Concentration 33.3 32.0 - 35.7 gm/dL [facility] Platelet 168 145 - 357 x10(3)/mc L [facility] RDW Standard Deviation 54.4(H) 36.0 - 45.0 fL [facility] RDW coefficient of variation 15.5(H) 11.4 - 13.8 % [facility] Mean Platelet Volume 8.7 7.6 - 12.9 [facility] NRBC% auto 0.0 % [facility] NRBC Absolute 0.000 0.000 - 0.000 x10(3)/mc L [facility] Blood specimen (specimen) 05/02/2018 3:20 AM EDT 05/02/2018 3:26 AM EDT Narrative Resulting Agency Comment Spec In Lab Apple Gutierrez MD HEMATOLOGY ORDERABLE S [facility] [place] [address] * (ABNORMAL) Basic Metabolic Panel (non-fasting) (05/02/2018 3:20 AM EDT) Glucose 94 65 - 199 mg/dL [facility] Comment:Diabetes: >=200 mg/d L plus symptoms Blood Urea Nitrogen 38(H) 10 - 20 mg/dL [facility] Creatinine 2.73(H) 0.80 - 1.50 mg/dL [facility] Sodium 135 135 - 145 mmol/L [facility] Potassium 4.3 3.5 - 5.0 mmol/L [facility] Comment: Please note: ??Patients with WBC >100,000 may have falsely elevated Potassium levels. ??For accurate Potassium quantification in these patients send serum separator tube (gold top) for subsequent determinations. ??Contact the Clinical Chemistry Laboratory if there are any questions. Chloride 103 98 - 107 mmol/L [facility] Carbon Dioxide 19(L) 22 - 31 mmol/L [facility] Anion Gap 13 5 - 15 mmol/L [facility] Calcium 7.7(L) 8.5 - 10.5 mg/dL [facility] Est Glomerular Filtration Rate 25(L) >=60 mL/min/1. 73 m?? [facility] Comment: The eGFR was calculated using the CKD-EPI equation. As with all creatinine based estimates of kidney function, eGFR values calculated with the CKD-EPI equation are not accurate in patients with acute kidney failure, extremes of body mass or the acutely ill. [email or web address] eGFR 29(L) >=60 mL/min/1. 73 m?? [facility] Comment: The eGFR was calculated using the CKD-EPI equation. As with all creatinine based estimates of kidney function, eGFR values calculated with the CKD-EPI equation are not accurate in patients with acute kidney failure, extremes of body mass or the acutely ill. [email or web address] Blood specimen (specimen) 05/02/2018 3:20 AM EDT 05/02/2018 3:25 AM EDT Narrative Resulting Agency Comment Spec In Lab Hay Sparks MD CHEMISTRY ORDERABLES [facility] [place] [address] * Differential, Automated (05/01/2018 4:00 AM EDT) Neutrophil % 60.0 % [facility] Neutrophil Absolute 2.98 1.70 - 6.10 x10(3)/[facility] Lymph % 21.2 % [facility] Lymphocytes Abs 1.0 0.9 - 3.2 x10(3)/[facility] Monocyte % 9.7 % [facility] Monocyte Abs 0.5 0.3 - 0.9 x10(3)/[facility] Eos % 8.1 % [facility] Eosinophils Abs 0.4 0.0 - 0.4 x10(3)/[facility] Basophil % 0.8 % [facility] Baso Absolute 0.0 0.0 - 0.1 x10(3)/[facility] Immature Gran % 0.20 % [facility] Comment: Immature granulocytes(IG's)percentage and absolute count will include metamyelocytes, myelocytes, and promyelocytes. Blood smears from CBCs yielding IG's will be scanned manually for concordance. If this scan disagrees with the automated IG or if promyelocytes are noted, a manual differential will be performed. Immature Gran Absolute 0.01 0.00 - 0.04 x10(3)/mcL [facility] Blood specimen (specimen) 05/01/2018 4:00 AM EDT 05/01/2018 4:13 AM EDT Narrative Resulting Agency Comment Spec In Lab Apple Gutierrez MD HEMATOLOGY ORDERABLE S [facility] [place] [address] * (ABNORMAL) Hemogram (05/01/2018 4:00 AM EDT) White Blood Cell 5.0 4.0 - 9.5 x10(3)/[facility] Red Blood Cell 2.71(L) 4.58 - 5.54 x10(6)/[facility] Hemoglobin 8.2(L) 13.7 - 16.5 gm/dL [facility] Hematocrit 25.6(L) 40.5 - 48.5 % [facility] Mean Cell Volume 94.5(H) 82.9 - 93.1 [facility] Mean Cell Hemoglobin 30.3 27.5 - 32.1 pg [facility] Mean Cell Hemoglobin Concentration 32.0 32.0 - 35.7 gm/dL [facility] Platelet 192 145 - 357 x10(3)/[facility] RDW Standard Deviation 53.5(H) 36.0 - 45.0 [facility] RDW coefficient of variation 15.5(H) 11.4 - 13.8 % [facility] Mean Platelet Volume 8.9 7.6 - 12.9 [facility] NRBC% auto 0.0 % [facility] NRBC Absolute 0.000 0.000 - 0.000 x10(3)/ L [facility] Blood specimen (specimen) 05/01/2018 4:00 AM EDT 05/01/2018 4:13 AM EDT Narrative Resulting Agency Comment Spec In Lab Apple Gutierrez MD HEMATOLOGY ORDERABLE S [facility] [place] [address] * (ABNORMAL) Basic Metabolic Panel (non-fasting) (05/01/2018 4:00 AM EDT) Glucose 101 65 - 199 mg/dL [facility] Comment:Diabetes: >=200 mg/d L plus symptoms Blood Urea Nitrogen 36(H) 10 - 20 mg/dL [facility] Creatinine 2.66(H) 0.80 - 1.50 mg/dL [facility] Sodium 134(L) 135 - 145 mmol/L [facility] Potassium 3.9 3.5 - 5.0 mmol/L [facility] [...] Filtration Rate 26(L) >=60 mL/min/1. 73 m?? [facility] Comment: The eGFR was calculated using the CKD-EPI equation. As with all creatinine based estimates of kidney function, eGFR values calculated with the CKD-EPI equation are not accurate in patients with acute kidney failure, extremes of body mass or the acutely ill. [email or web address] eGFR 30(L) >=60 mL/min/1. 73 m?? [facility] Comment: The eGFR was calculated using the CKD-EPI equation. As with all creatinine based estimates of kidney function, eGFR values calculated with the CKD-EPI equation are not accurate in patients with acute kidney failure, extremes of body mass or the acutely ill. [email or web address] Blood specimen (specimen) 05/01/2018 4:00 AM EDT 05/01/2018 4:13 AM EDT Narrative Resulting Agency Comment Spec In Lab Hay Sparks MD CHEMISTRY ORDERABLES Performing Organization Address [facility] de Phone Number [facility] [place] [address] * Vancomycin, trough (04/30/2018 7:05 PM EDT) Pathologist [facility] Vancomycin, Trough 15.3 mg/L [facility] Comment: Therapeutic range for [...] Sparks MD CHEMISTRY ORDERABLES Performing Organization Address [facility] de Phone Number [facility] [place] [address] * Differential, Automated (04/30/2018 2:55 AM EDT) Neutrophil % 60.3 % [facility] Neutrophil Absolute 3.15 1.70 - 6.10 x10(3)/[facility] Lymph % 22.8 % [facility] Lymphocytes Abs 1.2 0.9 - 3.2 x10(3)/[facility] Monocyte % 10.2 % [facility] Monocyte Abs 0.5 0.3 - 0.9 x10(3)/[facility] Eos % 5.7 % [facility] Eosinophils Abs 0.3 0.0 - 0.4 x10(3)/[facility] Basophil % 0.6 % [facility] Baso Absolute 0.0 0.0 - 0.1 x10(3)/[facility] Immature Gran % 0.40 % [facility] Comment: Immature granulocytes(IG's)percentage and absolute count will include metamyelocytes, myelocytes, and promyelocytes. Blood smears from CBCs yielding IG's will be scanned manually for concordance. If this scan disagrees with the automated IG or if promyelocytes are noted, a manual differential will be performed. Immature Gran Absolute 0.02 0.00 - 0.04 x10(3)/[facility] Blood specimen (specimen) 04/30/2018 2:55 AM EDT 04/30/2018 3:06 AM EDT Narrative Resulting Agency Comment Spec In Lab Apple Gutierrez MD HEMATOLOGY ORDERABLE S [facility] [place] [address] * (ABNORMAL) Hemogram (04/30/2018 2:55 AM EDT) White Blood Cell 5.2 4.0 - 9.5 x10(3)/mc L [facility] Red Blood Cell 2.53(L) 4.58 - 5.54 x10(6)/mc L [facility] Hemoglobin 7.9(L) 13.7 - 16.5 gm/dL [facility] Hematocrit 24.3(L) 40.5 - 48.5 % [facility] Mean Cell Volume 96.0(H) 82.9 - 93.1 fL [facility] Mean Cell Hemoglobin 31.2 27.5 - 32.1 pg [facility] Mean Cell Hemoglobin Concentration 32.5 32.0 - 35.7 gm/dL [facility] Platelet 186 145 - 357 x10(3)/mc L [facility] RDW Standard Deviation 54.7(H) 36.0 - 45.0 fL [facility] RDW coefficient of variation 15.6(H) 11.4 - 13.8 % [facility] Mean Platelet Volume 8.7 7.6 - 12.9 fL [facility] NRBC% auto 0.0 % [facility] NRBC Absolute 0.000 0.000 - 0.000 x10(3)/mc L [facility] Blood specimen (specimen) 04/30/2018 2:55 AM EDT 04/30/2018 3:06 AM EDT Narrative Resulting Agency Comment Spec In Lab Apple Gutierrez MD HEMATOLOGY ORDERABLE S [facility] [place] [id number] * (ABNORMAL) Basic Metabolic Panel (non-fasting) (04/30/2018 2:55 AM EDT) Glucose 96 65 - 199 mg/dL [facility] Comment:Diabetes: >=200 mg/d L plus symptoms Blood Urea Nitrogen 39(H) 10 - 20 mg/dL [facility] Creatinine 2.94(H) 0.80 - 1.50 mg/dL [facility] Sodium 135 135 - 145 mmol/L [facility] Potassium 4.5 3.5 - 5.0 mmol/L [facility] Comment: Please note: ??Patients with WBC >100,000 may have falsely elevated Potassium levels. ??For accurate Potassium quantification in these patients send serum separator tube (gold top) for subsequent determinations. ??Contact the Clinical Chemistry Laboratory if there are any questions. Chloride 100 98 - 107 mmol/L [facility] Carbon Dioxide 21(L) 22 - 31 mmol/L [facility] Anion Gap 14 5 - 15 mmol/L [facility] Calcium 8.1(L) 8.5 - 10.5 mg/dL [facility] Est Glomerular Filtration Rate 23(L) >=60 mL/min/1. 73 m?? [facility] Comment: The eGFR was calculated using the CKD-EPI equation. As with all creatinine based estimates of kidney function, eGFR values calculated with the CKD-EPI equation are not accurate in patients with acute kidney failure, extremes of body mass or the acutely ill. [email or web address] eGFR 26(L) >=60 mL/min/1. 73 m?? [facility] Comment: The eGFR was calculated using the CKD-EPI equation. As with all creatinine based estimates of kidney function, eGFR values calculated with the CKD-EPI equation are not accurate in patients with acute kidney failure, extremes of body mass or the acutely ill. [email or web address] Blood specimen (specimen) 04/30/2018 2:55 AM EDT 04/30/2018 3:06 AM EDT Narrative Resulting Agency Comment Spec In Lab Hay Sparks MD CHEMISTRY ORDERABLES [facility] [place] [address] * Vancomycin, trough (04/29/2018 5:15 PM EDT) Vancomycin, Trough 15.9 mg/L [facility] Comment: Therapeutic range for complicated [...] CHEMISTRY ORDERAB LES Performing Organization Address [facility] de Phone Number [facility] [place] [address] * Vancomycin, trough (04/29/2018 6:55 AM EDT) Pathologist [facility] Vancomycin, Trough 19.5 mg/L [facility] Comment: Therapeutic range for [...] Sparks MD CHEMISTRY ORDERABLES Performing Organization Address [facility] Co de Phone Number [facility] [place] [address] * Differential, Automated (04/29/2018 5:40 AM EDT) Neutrophil % 63.0 % [facility] Neutrophil Absolute 3.22 1.70 - 6.10 x10(3)/[facility] Lymph % 21.1 % [facility] Lymphocytes Abs 1.1 0.9 - 3.2 x10(3)/[facility] Monocyte % 9.0 % [facility] Monocyte Abs 0.5 0.3 - 0.9 x10(3)/[facility] Eos % 5.5 % [facility] Eosinophils Abs 0.3 0.0 - 0.4 x10(3)/[facility] Basophil % 0.8 % [facility] Baso Absolute 0.0 0.0 - 0.1 x10(3)/[facility] Immature Gran % 0.60 % [facility] Comment: Immature granulocytes(IG's)percentage and absolute count will include metamyelocytes, myelocytes, and promyelocytes. Blood smears from CBCs yielding IG's will be scanned manually for concordance. If this scan disagrees with the automated IG or if promyelocytes are noted, a manual differential will be performed. Immature Gran Absolute 0.03 0.00 - 0.04 x10(3)/[facility] Blood specimen (specimen) 04/29/2018 5:40 AM EDT 04/29/2018 6:11 AM EDT Narrative Resulting Agency Comment Spec In Lab Apple Gutierrez MD HEMATOLOGY ORDERABLE S Performing Organization Address City/State/[facility] Co de Phone Number [facility] [place] [address] * (ABNORMAL) Hemogram (04/29/2018 5:40 AM EDT) White Blood Cell 5.1 4.0 - 9.5 x10(3)/[facility] Red Blood Cell 2.56(L) 4.58 - 5.54 x10(6)/ L [facility] Hemoglobin 7.7(L) 13.7 - 16.5 gm/dL [facility] Hematocrit 24.2(L) 40.5 - 48.5 % [facility] Mean Cell Volume 94.5(H) 82.9 - 93.1 fL [facility] Mean Cell Hemoglobin 30.1 27.5 - 32.1 pg [facility] Mean Cell Hemoglobin Concentration 31.8(L) 32.0 - 35.7 gm/dL [facility] Platelet 216 145 - 357 x10(3)/ L [facility] RDW Standard Deviation 53.7(H) 36.0 - 45.0 fL [facility] RDW coefficient of variation 15.4(H) 11.4 - 13.8 % [facility] LABORATORY Mean Platelet Volume 8.9 7.6 - 12.9 fL [facility] NRBC% auto 0.0 % [facility] NRBC Absolute 0.000 0.000 - 0.000 x10(3)/mc L [facility] Blood specimen (specimen) 04/29/2018 5:40 AM EDT 04/29/2018 6:11 AM EDT Narrative Resulting Agency Comment Spec In Lab Apple Gutierrez MD HEMATOLOGY ORDERABLE S [facility] [place] [address] * (ABNORMAL) Basic Metabolic Panel (non-fasting) (04/29/2018 5:40 AM EDT) Glucose 91 65 - 199 mg/dL [facility] Comment:Diabetes: >=200 mg/d L plus symptoms Blood Urea Nitrogen 41(H) 10 - 20 mg/dL [facility] Creatinine 2.51(H) 0.80 - 1.50 mg/dL [facility] Sodium 136 135 - 145 mmol/L [facility] Potassium 4.9 3.5 - 5.0 mmol/L [facility] Comment: Please note: ??Patients with WBC >100,000 may have falsely elevated Potassium levels. ??For accurate Potassium quantification in these patients send serum separator tube (gold top) for subsequent determinations. ??Contact the Clinical Chemistry Laboratory if there are any questions. Chloride 104 98 - 107 mmol/L [facility] Carbon Dioxide 21(L) 22 - 31 mmol/L [facility] Anion Gap 11 5 - 15 mmol/L [facility] Calcium 8.0(L) 8.5 - 10.5 mg/dL [facility] Est Glomerular Filtration Rate 28(L) >=60 mL/min/1. 73 m?? [facility] Comment: The eGFR was calculated using the CKD-EPI equation. As with all creatinine based estimates of kidney function, eGFR values calculated with the CKD-EPI equation are not accurate in patients with acute kidney failure, extremes of body mass or the acutely ill. [email or web address] eGFR 32(L) >=60 mL/min/1. 73 m?? [facility] Comment: The eGFR was calculated using the CKD-EPI equation. As with all creatinine based estimates of kidney function, eGFR values calculated with the CKD-EPI equation are not accurate in patients with acute kidney failure, extremes of body mass or the acutely ill. [email or web address] Blood specimen (specimen) 04/29/2018 5:40 AM EDT 04/29/2018 6:11 AM EDT Narrative Resulting Agency Comment Spec In Lab Hay Sparks MD CHEMISTRY ORDERABLES [facility] [place] [address] * (ABNORMAL) Vancomycin, trough (04/28/2018 1:09 PM EDT) Vancomycin, Trough 21.6(Crit ical) mg/L [facility] Comment: Called by: MASSIEL, [...] Sparks MD CHEMISTRY ORDERABLES Performing Organization Address [facility] Co de Phone Number [facility] [place] [address] * EKG 12 Lead (04/28/2018 7:17 AM EDT) Ventricular rate 51 BPM MUSE SYSTEM Atrial Rate 51 BPM MUSE SYSTEM P-R Interval 162 ms MUSE SYSTEM QRS Duration 92 ms MUSE SYSTEM Q-T Interval 442 ms MUSE SYSTEM QTC Calculated (Bezet) 407 ms MUSE SYSTEM Calculated P [place] 59 degrees MUSE SYSTEM Calculated R [place] 35 degrees MUSE SYSTEM Calculated T [place] 34 degrees MUSE SYSTEM INTERPRETATION Sinus bradycardia Otherwise normal ECG When compared with ECG of 26-MAY-2017 11:16, No significant change was found Confirmed by MD Aure, Sukumar Rubi ([id number]) on 04/29/2018 1:34:03 PM MUSE SYSTEM 04/28/2018 7:17 AM EDT 04/29/2018 1:34 PM EDT Chase Olvera MD ECG ORDERABLES Performing Organization Address [facility] Co de Phone Number MUSE SYSTEM * Differential, Automated (04/28/2018 4:40 AM EDT) Neutrophil % 66.6 % [facility] Neutrophil Absolute 4.11 1.70 - 6.10 x10(3)/[facility] LABORATORY Lymph % 23.5 % [facility] Lymphocytes Abs 1.4 0.9 - 3.2 x10(3)/[facility] LABORATORY Monocyte % 7.8 % [facility] Monocyte Abs 0.5 0.3 - 0.9 x10(3)/[facility] LABORATORY Eos % 1.5 % [facility] Eosinophils Abs 0.1 0.0 - 0.4 x10(3)/[facility] LABORATORY Basophil % 0.3 % [facility] Baso Absolute 0.0 0.0 - 0.1 x10(3)/[facility] LABORATORY Immature Gran % 0.30 % [facility] Comment: Immature granulocytes(IG's)percentage and absolute count will include metamyelocytes, myelocytes, and promyelocytes. Blood smears from CBCs yielding IG's will be scanned manually for concordance. If this scan disagrees with the automated IG or if promyelocytes are noted, a manual differential will be performed. Immature Gran Absolute 0.02 0.00 - 0.04 x10(3)/mcL [facility] Blood specimen (specimen) 04/28/2018 4:40 AM EDT 04/28/2018 4:53 AM EDT Narrative Resulting Agency Comment Spec In Lab Apple Gutierrez MD HEMATOLOGY ORDERABLE S [facility] [place] [address] * (ABNORMAL) Hemogram (04/28/2018 4:40 AM EDT) White Blood Cell 6.2 4.0 - 9.5 x10(3)/mc L [facility] Red Blood Cell 2.54(L) 4.58 - 5.54 x10(6)/mc L [facility] Hemoglobin 7.6(L) 13.7 - 16.5 gm/dL [facility] Hematocrit 24.3(L) 40.5 - 48.5 % [facility] Mean Cell Volume 95.7(H) 82.9 - 93.1 fL [facility] Mean Cell Hemoglobin 29.9 27.5 - 32.1 pg [facility] Mean Cell Hemoglobin Concentration 31.3(L) 32.0 - 35.7 gm/dL [facility] Platelet 249 145 - 357 x10(3)/mc L [facility] RDW Standard Deviation 55.3(H) 36.0 - 45.0 fL [facility] RDW coefficient of variation 15.6(H) 11.4 - 13.8 % [facility] Mean Platelet Volume 8.7 7.6 - 12.9 fL [facility] NRBC% auto 0.0 % [facility] NRBC Absolute 0.000 0.000 - 0.000 x10(3)/mc L [facility] Blood specimen (specimen) 04/28/2018 4:40 AM EDT 04/28/2018 4:53 AM EDT Narrative Resulting Agency Comment Spec In Lab Apple Gutierrez MD HEMATOLOGY ORDERABLE S [facility] [place] [address] * (ABNORMAL) Basic Metabolic Panel (non-fasting) (04/28/2018 4:40 AM EDT) Glucose 94 65 - 199 mg/dL [facility] Comment:Diabetes: >=200 mg/d L plus symptoms Blood Urea Nitrogen 44(H) 10 - 20 mg/dL [facility] Creatinine 2.80(H) 0.80 - 1.50 mg/dL [facility] Sodium 133(L) 135 - 145 mmol/L [facility] [...] mmol/L [facility] Carbon Dioxide 20(L) 22 - 31 mmol/L [facility] Anion Gap 12 5 - 15 mmol/L [facility] Calcium 8.1(L) 8.5 - 10.5 mg/dL [facility] Est Glomerular Filtration Rate 24(L) >=60 mL/min/1. 73 m?? [facility] Comment: The eGFR was calculated using the CKD-EPI equation. As with all creatinine based estimates of kidney function, eGFR values calculated with the CKD-EPI equation are not accurate in patients with acute kidney failure, extremes of body mass or the acutely ill. [email or web address] eGFR 28(L) >=60 mL/min/1. 73 m?? [facility] Comment: The eGFR was calculated using the CKD-EPI equation. As with all creatinine based estimates of kidney function, eGFR values calculated with the CKD-EPI equation are not accurate in patients with acute kidney failure, extremes of body mass or the acutely ill. [email or web address] Blood specimen (specimen) 04/28/2018 4:40 AM EDT 04/28/2018 4:53 AM EDT Narrative Resulting Agency Comment Spec In Lab Hay Sparks MD CHEMISTRY ORDERABLES Performing Organization Address [facility] Co de Phone Number [facility] [place] [address] * Vancomycin, trough (04/27/2018 1:30 PM EDT) Pathologist [facility] Vancomycin, Trough 11.1 mg/L M [facility] Comment: Therapeutic range for complicated [...] Sparks MD CHEMISTRY ORDERABLES Performing Organization Address [facility] Co de Phone Number [facility] [place] [address] * XR PICC Placement Over 5 Years [...] Absolute 4.96 1.70 - 6.10 x10(3)/mc L [facility] Lymph % 9.7 % [facility] Lymphocytes Abs 0.6(L) 0.9 - 3.2 x10(3)/mc L [facility] Monocyte % 5.5 % [facility] Monocyte Abs 0.3 0.3 - 0.9 x10(3)/mc L [facility] Eos % 0.0 % [facility] Eosinophils Abs 0.0 0.0 - 0.4 x10(3)/mc L [facility] Basophil % 0.2 % [facility] Baso Absolute 0.0 0.0 - 0.1 x10(3)/mc L [facility] Immature Gran % 0.20 % [facility] Comment: Immature granulocytes(IG's)percentage and absolute count will include metamyelocytes, myelocytes, and promyelocytes. Blood smears from CBCs yielding IG's will be scanned manually for concordance. If this scan disagrees with the automated IG or if promyelocytes are noted, a manual differential will be performed. Immature Gran Absolute 0.01 0.00 - 0.04 x10(3)/[facility] Blood specimen (specimen) 04/27/2018 4:43 AM EDT 04/27/2018 5:16 AM EDT Narrative Resulting Agency Comment Spec In Lab Apple Gutierrez MD HEMATOLOGY ORDERABLE S [facility] [place] [address] * (ABNORMAL) Hemogram (04/27/2018 4:43 AM EDT) White Blood Cell 5.9 4.0 - 9.5 x10(3)/[facility] LABORATORY Red Blood Cell 2.81(L) 4.58 - 5.54 x10(6)/ L [facility] Hemoglobin 8.8(L) 13.7 - 16.5 gm/dL [facility] Hematocrit 27.0(L) 40.5 - 48.5 % [facility] Mean Cell Volume 96.1(H) 82.9 - 93.1 fL [facility] Mean Cell Hemoglobin 31.3 27.5 - 32.1 pg [facility] Mean Cell Hemoglobin Concentration 32.6 32.0 - 35.7 gm/dL [facility] Platelet 302 145 - 357 x10(3)/[facility] LABORATORY RDW Standard Deviation 54.9(H) 36.0 - 45.0 fL [facility] RDW coefficient of variation 15.5(H) 11.4 - 13.8 % [facility] Mean Platelet Volume 8.8 7.6 - 12.9 fL [facility] NRBC% auto 0.0 % [facility] NRBC Absolute 0.000 0.000 - 0.000 x10(3)/mc L [facility] Blood specimen (specimen) 04/27/2018 4:43 AM EDT 04/27/2018 5:16 AM EDT Narrative Resulting Agency Comment Spec In Lab Apple Gutierrez MD HEMATOLOGY ORDERABLE S [facility] [place] [address] * (ABNORMAL) Basic Metabolic Panel (non-fasting) (04/27/2018 4:43 AM EDT) Glucose 142 65 - 199 mg/dL [facility] Comment:Diabetes: >=200 mg/d L plus symptoms Blood Urea Nitrogen 41(H) 10 - 20 mg/dL [facility] Creatinine 2.81(H) 0.80 - 1.50 mg/dL [facility] Sodium 132(L) 135 - 145 mmol/L [facility] Potassium 5.6(H) 3.5 - 5.0 mmol/L [facility] [...] 15 mmol/L [facility] Calcium 8.4(L) 8.5 - 10.5 mg/dL [facility] Est Glomerular Filtration Rate 24(L) >=60 mL/min/1. 73 m?? [facility] Comment: The eGFR was calculated using the CKD-EPI equation. As with all creatinine based estimates of kidney function, eGFR values calculated with the CKD-EPI equation are not accurate in patients with acute kidney failure, extremes of body mass or the acutely ill. [email or web address] eGFR 28(L) >=60 mL/min/1. 73 m?? [facility] Comment: The eGFR was calculated using the CKD-EPI equation. As with all creatinine based estimates of kidney function, eGFR values calculated with the CKD-EPI equation are not accurate in patients with acute kidney failure, extremes of body mass or the acutely ill. [email or web address] Blood specimen (specimen) 04/27/2018 4:43 AM EDT 04/27/2018 5:16 AM EDT Narrative Resulting Agency Comment Spec In Lab Hay Sparks MD CHEMISTRY ORDERABLES Performing Organization Address City/State/[facility] Co de Phone Number [facility] [place] [address] * (ABNORMAL) Hemogram (04/26/2018 3:09 PM EDT) White Blood Cell 4.8 4.0 - 9.5 x10(3)/mc L [facility] Red Blood Cell 2.90(L) 4.58 - 5.54 x10(6)/mc L [facility] Hemoglobin 8.8(L) 13.7 - 16.5 gm/dL [facility] Hematocrit 27.5(L) 40.5 - 48.5 % [facility] Mean Cell Volume 94.8(H) 82.9 - 93.1 fL [facility] Mean Cell Hemoglobin 30.3 27.5 - 32.1 pg [facility] Mean Cell Hemoglobin Concentration 32.0 32.0 - 35.7 gm/dL [facility] Platelet 273 145 - 357 x10(3)/mc L [facility] RDW Standard Deviation 55.8(H) 36.0 - 45.0 fL [facility] RDW coefficient of variation 15.9(H) 11.4 - 13.8 % [facility] Mean Platelet Volume 9.1 7.6 - 12.9 fL [facility] NRBC% auto 0.0 % [facility] NRBC Absolute 0.000 0.000 - 0.000 x10(3)/mc L [facility] Blood specimen (specimen) 04/26/2018 3:09 PM EDT 04/26/2018 3:16 PM EDT Narrative Resulting Agency Comment Spec In Lab Chase Olvera MD HEMATOLOGY ORDERA BLES Performing Organization Address [facility]/ZIP Co de Phone Number [facility] [place] [address] * Vancomycin, trough (04/26/2018 2:15 PM EDT) Pathologist [facility] Vancomycin, Trough 11.8 mg/L [facility] Comment: Therapeutic range for [...] Sparks MD CHEMISTRY ORDERABLES Performing Organization Address City/[facility]/ZIP Co de Phone Number [facility] [place] [address] * ABORH Recheck Status (04/26/2018 11:42 AM EDT) ABORH Type Recheck Completed [facility] Blood specimen (specimen) 04/26/2018 11:42 AM EDT 04/26/2018 11:42 AM EDT Narrative Resulting Agency Comment Spec In Lab Natalya Jacobsen MD BLOOD BANK LAB ORDER KELLY Performing Organization Address City/[facility]/ZIP Co de Phone Number [facility] [place] [address] * Antibody screen (04/26/2018 11:42 AM EDT) Ab Screen Interp Negative [facility] Expires at [id number] on: 04/29/2018 [facility] Blood specimen (specimen) 04/26/2018 11:42 AM EDT 04/26/2018 11:42 AM EDT Narrative Resulting Agency Comment Spec In Lab Natalya Jacobsen MD BLOOD BANK LAB ORDER KELLY Performing Organization Address City/[facility]/ZIP Co de Phone Number [facility] [place] [address] * ABO/Rh Typing (04/26/2018 11:42 AM EDT) ABORH Type A Pos [facility] Blood specimen (specimen) 04/26/2018 11:42 AM EDT 04/26/2018 11:42 AM EDT Narrative Resulting Agency Comment Spec In Lab Natalya Jacobsen MD BLOOD BANK LAB ORDER KELLY Performing Organization Address City/[facility]/ZIP Co de Phone Number [facility] [place] [address] * Differential, Automated (04/26/2018 4:39 AM EDT) Neutrophil % 55.1 % [facility] Neutrophil Absolute 2.56 1.70 - 6.10 x10(3)/[facility] LABORATORY Lymph % 27.7 % [facility] Lymphocytes Abs 1.3 0.9 - 3.2 x10(3)/[facility]ORATORY Monocyte % 10.5 % [facility] Monocyte Abs 0.5 0.3 - 0.9 x10(3)/[facility]OR[facility] Eos % 5.2 % [facility] Eosinophils Abs 0.2 0.0 - 0.4 x10(3)/[facility]ORATORY Basophil % 1.3 % [facility] Baso Absolute 0.1 0.0 - 0.1 x10(3)/[facility] LABORATORY Immature Gran % 0.20 % [facility] Comment: Immature granulocytes(IG's)percentage and absolute count will include metamyelocytes, myelocytes, and promyelocytes. Blood smears from CBCs yielding IG's will be scanned manually for concordance. If this scan disagrees with the automated IG or if promyelocytes are noted, a manual differential will be performed. Immature Gran Absolute 0.01 0.00 - 0.04 x10(3)/[facility] LABORATORY Blood specimen (specimen) 04/26/2018 4:39 AM EDT 04/26/2018 4:58 AM EDT Narrative Resulting Agency Comment Spec In Lab Apple Gutierrez MD HEMATOLOGY ORDERABLE S [facility] [place] [address] * (ABNORMAL) Hemogram (04/26/2018 4:39 AM EDT) White Blood Cell 4.6 4.0 - 9.5 x10(3)/mc L [facility] Red Blood Cell 2.58(L) 4.58 - 5.54 x10(6)/mc L [facility] Hemoglobin 7.9(L) 13.7 - 16.5 gm/dL [facility] Hematocrit 24.6(L) 40.5 - 48.5 % [facility] Mean Cell Volume 95.3(H) 82.9 - 93.1 fL [facility] Mean Cell Hemoglobin 30.6 27.5 - 32.1 pg [facility] Mean Cell Hemoglobin Concentration 32.1 32.0 - 35.7 gm/dL [facility] Platelet 253 145 - 357 x10(3)/mc L [facility] RDW Standard Deviation 54.4(H) 36.0 - 45.0 [facility]ORATORY RDW coefficient of variation 15.7(H) 11.4 - 13.8 % [facility] Mean Platelet Volume 8.4 7.6 - 12.9 fL [facility] NRBC% auto 0.0 % [facility] NRBC Absolute 0.000 0.000 - 0.000 x10(3)/mc L [facility] Blood specimen (specimen) 04/26/2018 4:39 AM EDT 04/26/2018 4:58 AM EDT Narrative Resulting Agency Comment Spec In Lab Apple Gutierrez MD HEMATOLOGY ORDERABLE S [facility] [place] [address] * (ABNORMAL) Basic Metabolic Panel (non-fasting) (04/26/2018 4:39 AM EDT) Glucose 93 65 - 199 mg/dL [facility] Comment:Diabetes: >=200 mg/d L plus symptoms Blood Urea Nitrogen 37(H) 10 - 20 mg/dL [facility] Creatinine 2.80(H) 0.80 - 1.50 mg/dL [facility] Sodium 138 135 - 145 mmol/L [facility] Potassium 5.2(H) 3.5 - 5.0 mmol/L [facility] [...] 15 mmol/L [facility] Calcium 8.2(L) 8.5 - 10.5 mg/dL [facility] Est Glomerular Filtration Rate 24(L) >=60 mL/min/1. 73 m?? [facility] Comment: The eGFR was calculated using the CKD-EPI equation. As with all creatinine based estimates of kidney function, eGFR values calculated with the CKD-EPI equation are not accurate in patients with acute kidney failure, extremes of body mass or the acutely ill. [email or web address] eGFR 28(L) >=60 mL/min/1. 73 m?? [facility] Comment: The eGFR was calculated using the CKD-EPI equation. As with all creatinine based estimates of kidney function, eGFR values calculated with the CKD-EPI equation are not accurate in patients with acute kidney failure, extremes of body mass or the acutely ill. [email or web address] Blood specimen (specimen) 04/26/2018 4:39 AM EDT 04/26/2018 4:58 AM EDT Narrative Resulting Agency Comment Spec In Lab Hay Sparks MD CHEMISTRY ORDERABLES [facility] [place] [address] * SCAN DOC: ECG (04/26/2018 12:00 AM EDT) Narrative 04/26/2018 12:00 AM EDT Ordered by an unspecified provider. Scanning Provider MEDIA MGR SCAN EXT O RDR/RSLT * Differential, Automated (04/25/2018 5:18 AM EDT) Neutrophil % 64.9 % [facility] Neutrophil Absolute 3.49 1.70 - 6.10 x10(3)/[facility] LABORATORY Lymph % 20.4 % [facility] Lymphocytes Abs 1.1 0.9 - 3.2 x10(3)/[facility] LABORATORY Monocyte % 8.0 % [facility] Monocyte Abs 0.4 0.3 - 0.9 x10(3)/[facility]OR[facility]ORY Eos % 4.8 % [facility] Eosinophils Abs 0.3 0.0 - 0.4 x10(3)/[facility] LABORATORY Basophil % 1.5 % [facility] Baso Absolute 0.1 0.0 - 0.1 x10(3)/[facility] LABORATORY Immature Gran % 0.40 % [facility] Comment: Immature granulocytes(IG's)percentage and absolute count will include metamyelocytes, myelocytes, and promyelocytes. Blood smears from CBCs yielding IG's will be scanned manually for concordance. If this scan disagrees with the automated IG or if promyelocytes are noted, a manual differential will be performed. Immature Gran Absolute 0.02 0.00 - 0.04 x10(3)/[facility] LABORATORY Blood specimen (specimen) 04/25/2018 5:18 AM EDT 04/25/2018 5:43 AM EDT Narrative Resulting Agency Comment Spec In Lab Apple Gutierrez MD HEMATOLOGY ORDERABLE S [facility] [place] [address] * (ABNORMAL) Hemogram (04/25/2018 5:18 AM EDT) White Blood Cell 5.4 4.0 - 9.5 x10(3)/ L [facility] Red Blood Cell 2.70(L) 4.58 - 5.54 x10(6)/ L [facility] Hemoglobin 8.2(L) 13.7 - 16.5 gm/dL [facility] Hematocrit 26.1(L) 40.5 - 48.5 % [facility] Mean Cell Volume 96.7(H) 82.9 - 93.1 fL [facility] Mean Cell Hemoglobin 30.4 27.5 - 32.1 pg [facility] Mean Cell Hemoglobin Concentration 31.4(L) 32.0 - 35.7 gm/dL [facility] Platelet 327 145 - 357 x10(3)/mc L [facility] RDW Standard Deviation 55.7(H) 36.0 - 45.0 fL [facility] RDW coefficient of variation 15.8(H) 11.4 - 13.8 % [facility] Mean Platelet Volume 9.1 7.6 - 12.9 fL [facility] NRBC% auto 0.0 % [facility] NRBC Absolute 0.000 0.000 - 0.000 x10(3)/mc L [facility] Blood specimen (specimen) 04/25/2018 5:18 AM EDT 04/25/2018 5:43 AM EDT Narrative Resulting Agency Comment Spec In Lab Apple Gutierrez MD HEMATOLOGY ORDERABLE S [facility] [place] [address] * (ABNORMAL) Basic Metabolic Panel (non-fasting) (04/25/2018 5:18 AM EDT) Glucose 97 65 - 199 mg/dL [facility] Comment:Diabetes: >=200 mg/d L plus symptoms Blood Urea Nitrogen 39(H) 10 - 20 mg/dL [facility] Creatinine 2.58(H) 0.80 - 1.50 mg/dL [facility] Sodium 138 135 - 145 mmol/L [facility] Potassium 5.2(H) 3.5 - 5.0 mmol/L [facility] [...] Filtration Rate 27(L) >=60 mL/min/1. 73 m?? [facility] Comment: The eGFR was calculated using the CKD-EPI equation. As with all creatinine based estimates of kidney function, eGFR values calculated with the CKD-EPI equation are not accurate in patients with acute kidney failure, extremes of body mass or the acutely ill. [email or web address] eGFR 31(L) >=60 mL/min/1. 73 m?? [facility] Comment: The eGFR was calculated using the CKD-EPI equation. As with all creatinine based estimates of kidney function, eGFR values calculated with the CKD-EPI equation are not accurate in patients with acute kidney failure, extremes of body mass or the acutely ill. [email or web address] Blood specimen (specimen) 04/25/2018 5:18 AM EDT 04/25/2018 5:43 AM EDT Narrative Resulting Agency Comment Spec In Lab Hay Sparks MD CHEMISTRY ORDERABLES [facility] [place] [address] * Differential, Automated (04/24/2018 4:17 AM EDT) Neutrophil % 58.3 % [facility] Neutrophil Absolute 2.74 1.70 - 6.10 x10(3)/[facility] LABORATORY Lymph % 24.8 % [facility] Lymphocytes Abs 1.2 0.9 - 3.2 x10(3)/[facility] LABORATORY Monocyte % 9.3 % [facility] Monocyte Abs 0.4 0.3 - 0.9 x10(3)/[facility] LABORATORY Eos % 5.9 % [facility] Eosinophils Abs 0.3 0.0 - 0.4 x10(3)/[facility] LABORATORY Basophil % 1.1 % [facility] Baso Absolute 0.0 0.0 - 0.1 x10(3)/[facility] LABORATORY Immature Gran % 0.60 % [facility] Comment: Immature granulocytes(IG's)percentage and absolute count will include metamyelocytes, myelocytes, and promyelocytes. Blood smears from CBCs yielding IG's will be scanned manually for concordance. If this scan disagrees with the automated IG or if promyelocytes are noted, a manual differential will be performed. Immature Gran Absolute 0.03 0.00 - 0.04 x10(3)/[facility] LABORATORY Blood specimen (specimen) 04/24/2018 4:17 AM EDT 04/24/2018 4:40 AM EDT Narrative Resulting Agency Comment Spec In Lab Apple Gutierrez MD HEMATOLOGY ORDERABLE S [facility] [place] [address] * (ABNORMAL) Hemogram (04/24/2018 4:17 AM EDT) White Blood Cell 4.7 4.0 - 9.5 x10(3)/mc L [facility] Red Blood Cell 2.61(L) 4.58 - 5.54 x10(6)/mc L [facility] Hemoglobin 7.9(L) 13.7 - 16.5 gm/dL [facility] Hematocrit 24.6(L) 40.5 - 48.5 % [facility] Mean Cell Volume 94.3(H) 82.9 - 93.1 fL [facility] Mean Cell Hemoglobin 30.3 27.5 - 32.1 pg [facility] Mean Cell Hemoglobin Concentration 32.1 32.0 - 35.7 gm/dL [facility] Platelet 283 145 - 357 x10(3)/mc L [facility] RDW Standard Deviation 54.0(H) 36.0 - 45.0 fL [facility] RDW coefficient of variation 15.7(H) 11.4 - 13.8 % [facility] Mean Platelet Volume 8.6 7.6 - 12.9 fL [facility] NRBC% auto 0.0 % [facility] NRBC Absolute 0.000 0.000 - 0.000 x10(3)/mc L [facility] Blood specimen (specimen) 04/24/2018 4:17 AM EDT 04/24/2018 4:40 AM EDT Narrative Resulting Agency Comment Spec In Lab Apple Gutierrez MD HEMATOLOGY ORDERABLE S Performing Organization Address City/State/[facility] Co de Phone Number [facility] [place] [address] * (ABNORMAL) Basic Metabolic Panel (non-fasting) (04/24/2018 4:17 AM EDT) Glucose 93 65 - 199 mg/dL [facility] Comment:Diabetes: >=200 mg/d L plus symptoms Blood Urea Nitrogen 38(H) 10 - 20 mg/dL [facility] Creatinine 2.74(H) 0.80 - 1.50 mg/dL [facility] Sodium 138 135 - 145 mmol/L [facility] Potassium 5.2(H) 3.5 - 5.0 mmol/L [facility] Comment: Please note: ??Patients with WBC >100,000 may have falsely elevated Potassium levels. ??For accurate Potassium quantification in these patients send serum separator tube (gold top) for subsequent determinations. ??Contact the Clinical Chemistry Laboratory if there are any questions. Chloride 108(H) 98 - 107 mmol/L [facility] Carbon Dioxide 20(L) 22 - 31 mmol/L [facility] Anion Gap 10 5 - 15 mmol/L [facility] Calcium 8.0(L) 8.5 - 10.5 mg/dL [facility] Est Glomerular Filtration Rate 25(L) >=60 mL/min/1. 73 m?? [facility] Comment: The eGFR was calculated using the CKD-EPI equation. As with all creatinine based estimates of kidney function, eGFR values calculated with the CKD-EPI equation are not accurate in patients with acute kidney failure, extremes of body mass or the acutely ill. [email or web address] eGFR 29(L) >=60 mL/min/1. 73 m?? [facility] Comment: The eGFR was calculated using the CKD-EPI equation. As with all creatinine based estimates of kidney function, eGFR values calculated with the CKD-EPI equation are not accurate in patients with acute kidney failure, extremes of body mass or the acutely ill. [email or web address] Blood specimen (specimen) 04/24/2018 4:17 AM EDT 04/24/2018 4:40 AM EDT Narrative Resulting Agency Comment Spec In Lab Hay Sparks MD CHEMISTRY ORDERABLES [facility] [place] [address] * Differential, Automated (04/23/2018 4:56 AM EDT) Neutrophil % 61.5 % [facility] Neutrophil Absolute 3.19 1.70 - 6.10 x10(3)/[facility] LABORATORY Lymph % 22.2 % [facility] Lymphocytes Abs 1.2 0.9 - 3.2 x10(3)/[facility] LABORATORY Monocyte % 9.5 % [facility] Monocyte Abs 0.5 0.3 - 0.9 x10(3)/[facility] LABORATORY Eos % 5.6 % [facility] Eosinophils Abs 0.3 0.0 - 0.4 x10(3)/[facility] LABORATORY Basophil % 0.8 % [facility] Baso Absolute 0.0 0.0 - 0.1 x10(3)/[facility] LABORATORY Immature Gran % 0.40 % [facility] Comment: Immature granulocytes(IG's)percentage and absolute count will include metamyelocytes, myelocytes, and promyelocytes. Blood smears from CBCs yielding IG's will be scanned manually for concordance. If this scan disagrees with the automated IG or if promyelocytes are noted, a manual differential will be performed. Immature Gran Absolute 0.02 0.00 - 0.04 x10(3)/[facility] LABORATORY Blood specimen (specimen) 04/23/2018 4:56 AM EDT 04/23/2018 5:25 AM EDT Narrative Resulting Agency Comment Spec In Lab Apple Gutierrez MD HEMATOLOGY ORDERABLE S Performing Organization Address City/State/[facility] Co de Phone Number [facility] [place] [address] * (ABNORMAL) Hemogram (04/23/2018 4:56 AM EDT) White Blood Cell 5.2 4.0 - 9.5 x10(3)/ L [facility] Red Blood Cell 2.60(L) 4.58 - 5.54 x10(6)/ L [facility] Hemoglobin 8.0(L) 13.7 - 16.5 gm/dL [facility] Hematocrit 24.3(L) 40.5 - 48.5 % [facility] Mean Cell Volume 93.5(H) 82.9 - 93.1 fL [facility] Mean Cell Hemoglobin 30.8 27.5 - 32.1 pg [facility] Mean Cell Hemoglobin Concentration 32.9 32.0 - 35.7 gm/dL [facility] Platelet 317 145 - 357 x10(3)/ L [facility] RDW Standard Deviation 54.2(H) 36.0 - 45.0 fL [facility] RDW coefficient of variation 15.9(H) 11.4 - 13.8 % [facility] Mean Platelet Volume 8.5 7.6 - 12.9 fL [facility] NRBC% auto 0.0 % [facility] NRBC Absolute 0.000 0.000 - 0.000 x10(3)/mc L [facility] Blood specimen (specimen) 04/23/2018 4:56 AM EDT 04/23/2018 5:25 AM EDT Narrative Resulting Agency Comment Spec In Lab Apple Gutierrez MD HEMATOLOGY ORDERABLE S [facility] [place] [address] * (ABNORMAL) Basic Metabolic Panel (non-fasting) (04/23/2018 4:56 AM EDT) Glucose 96 65 - 199 mg/dL [facility] Comment:Diabetes: >=200 mg/d L plus symptoms Blood Urea Nitrogen 36(H) 10 - 20 mg/dL [facility] Creatinine 2.49(H) 0.80 - 1.50 mg/dL [facility] [...] questions. Chloride 103 98 - 107 mmol/L [facility] Carbon Dioxide 20(L) 22 - 31 mmol/L [facility] Anion Gap 14 5 - 15 mmol/L [facility] Calcium 8.1(L) 8.5 - 10.5 mg/dL [facility] Est Glomerular Filtration Rate 28(L) >=60 mL/min/1. 73 m?? [facility] Comment: The eGFR was calculated using the CKD-EPI equation. As with all creatinine based estimates of kidney function, eGFR values calculated with the CKD-EPI equation are not accurate in patients with acute kidney failure, extremes of body mass or the acutely ill. [email or web address] eGFR 32(L) >=60 mL/min/1. 73 m?? [facility] Comment: The eGFR was calculated using the CKD-EPI equation. As with all creatinine based estimates of kidney function, eGFR values calculated with the CKD-EPI equation are not accurate in patients with acute kidney failure, extremes of body mass or the acutely ill. [email or web address] Blood specimen (specimen) 04/23/2018 4:56 AM EDT 04/23/2018 5:25 AM EDT Narrative Resulting Agency Comment Spec In Lab Hay Sparks MD CHEMISTRY ORDERABLES [facility] [place] [address] * Differential, Automated (04/22/2018 5:34 AM EDT) Neutrophil % 67.1 % [facility] Neutrophil Absolute 3.67 1.70 - 6.10 x10(3)/[facility] LABORATORY Lymph % 17.3 % [facility] Lymphocytes Abs 1.0 0.9 - 3.2 x10(3)/[facility] LABORATORY Monocyte % 10.0 % [facility] Monocyte Abs 0.6 0.3 - 0.9 x10(3)/[facility] LABORATORY Eos % 4.7 % [facility] Eosinophils Abs 0.3 0.0 - 0.4 x10(3)/[facility] LABORATORY Basophil % 0.7 % [facility] Baso Absolute 0.0 0.0 - 0.1 x10(3)/[facility] LABORATORY Immature Gran % 0.20 % [facility] Comment: Immature granulocytes(IG's)percentage and absolute count will include metamyelocytes, myelocytes, and promyelocytes. Blood smears from CBCs yielding IG's will be scanned manually for concordance. If this scan disagrees with the automated IG or if promyelocytes are noted, a manual differential will be performed. Immature Gran Absolute 0.01 0.00 - 0.04 x10(3)/[facility] LABORATORY Blood specimen (specimen) 04/22/2018 5:34 AM EDT 04/22/2018 5:51 AM EDT Narrative Resulting Agency Comment Spec In Lab Apple Gutierrez MD HEMATOLOGY ORDERABLE S [facility] [place] [address] * (ABNORMAL) Hemogram (04/22/2018 5:34 AM EDT) White Blood Cell 5.5 4.0 - 9.5 x10(3)/[facility] LABORATORY Red Blood Cell 2.62(L) 4.58 - 5.54 x10(6)/ L [facility] Hemoglobin 8.0(L) 13.7 - 16.5 gm/dL [facility] Hematocrit 24.8(L) 40.5 - 48.5 % [facility] Mean Cell Volume 94.7(H) 82.9 - 93.1 [facility] LABORAT[facility] Mean Cell Hemoglobin 30.5 27.5 - 32.1 pg [facility] Mean Cell Hemoglobin Concentration 32.3 32.0 - 35.7 gm/dL [facility] Platelet 289 145 - 357 x10(3)/ L [facility] RDW Standard Deviation 56.7(H) 36.0 - 45.0 fL [facility] RDW coefficient of variation 16.2(H) 11.4 - 13.8 % [facility] Mean Platelet Volume 8.6 7.6 - 12.9 fL [facility] NRBC% auto 0.0 % [facility] NRBC Absolute 0.000 0.000 - 0.000 x10(3)/mc L [facility] Blood specimen (specimen) 04/22/2018 5:34 AM EDT 04/22/2018 5:51 AM EDT Narrative Resulting Agency Comment Spec In Lab Apple Gutierrez MD HEMATOLOGY ORDERABLE S [facility] [place] [address] * (ABNORMAL) Basic Metabolic Panel (non-fasting) (04/22/2018 5:34 AM EDT) Glucose 100 65 - 199 mg/dL [facility] Comment:Diabetes: >=200 mg/d L plus symptoms Blood Urea Nitrogen 38(H) 10 - 20 mg/dL [facility] Creatinine 2.30(H) 0.80 - 1.50 mg/dL [facility] Sodium 138 135 - 145 mmol/L [facility] Potassium 5.3(H) 3.5 - 5.0 mmol/L [facility] [...] Filtration Rate 31(L) >=60 mL/min/1. 73 m?? [facility] Comment: The eGFR was calculated using the CKD-EPI equation. As with all creatinine based estimates of kidney function, eGFR values calculated with the CKD-EPI equation are not accurate in patients with acute kidney failure, extremes of body mass or the acutely ill. [email or web address] eGFR 35(L) >=60 mL/min/1. 73 m?? [facility] Comment: The eGFR was calculated using the CKD-EPI equation. As with all creatinine based estimates of kidney function, eGFR values calculated with the CKD-EPI equation are not accurate in patients with acute kidney failure, extremes of body mass or the acutely ill. [email or web address] Blood specimen (specimen) 04/22/2018 5:34 AM EDT 04/22/2018 5:51 AM EDT Narrative Resulting Agency Comment Spec In Lab Hay Sparks MD CHEMISTRY ORDERABLES Performing Organization Address City/[facility]/ZIP Co de Phone Number [facility] [place] [address] * Blood culture (04/21/2018 6:05 AM EDT) Blood Culture No growth at 5 days. [facility] Blood specimen (specimen) STRUCTURE OF RIGHT HAND / Unknown 04/21/2018 6:05 AM EDT 04/21/2018 8:01 AM EDT Narrative Resulting Agency Comment Spec In Lab Chase Olvera MD MICROBIOLOGY - BL OOD ORDERABLES [facility] [place] [address] * Blood culture (04/21/2018 5:50 AM EDT) Blood Culture No growth at 5 days. [facility] Blood specimen (specimen) ANTECUBITAL REGION STRUCTURE / Unknown 04/21/2018 5:50 AM EDT 04/21/2018 7:59 AM EDT Narrative Resulting Agency Comment Spec In Lab Chase Olvera MD MICROBIOLOGY - BL OOD ORDERABLES Performing Organization Address City/[facility]/ZIP Co de Phone Number [facility] [place] [address] * Differential, Automated (04/21/2018 5:50 AM EDT) Neutrophil % 66.9 % [facility] Neutrophil Absolute 3.88 1.70 - 6.10 x10(3)/[facility] LABORATORY Lymph % 16.8 % [facility] Lymphocytes Abs 1.0 0.9 - 3.2 x10(3)/[facility] LABORATORY Monocyte % 8.8 % [facility] Monocyte Abs 0.5 0.3 - 0.9 x10(3)/[facility] LABORATORY Eos % 5.9 % [facility] Eosinophils Abs 0.3 0.0 - 0.4 x10(3)/[facility] LABORATORY Basophil % 0.9 % [facility] Baso Absolute 0.0 0.0 - 0.1 x10(3)/[facility] LABORATORY Immature Gran % 0.70 % [facility] Comment: Immature granulocytes(IG's)percentage and absolute count will include metamyelocytes, myelocytes, and promyelocytes. Blood smears from CBCs yielding IG's will be scanned manually for concordance. If this scan disagrees with the automated IG or if promyelocytes are noted, a manual differential will be performed. Immature Gran Absolute 0.04 0.00 - 0.04 x10(3)/[facility] LABORATORY Blood specimen (specimen) 04/21/2018 5:50 AM EDT 04/21/2018 6:29 AM EDT Narrative Resulting Agency Comment Spec In Lab Apple Gutierrez MD HEMATOLOGY ORDERABLE S Performing Organization Address City/[facility]/ZIP Co de Phone Number [facility] [place] [address] * (ABNORMAL) Hemogram (04/21/2018 5:50 AM EDT) White Blood Cell 5.8 4.0 - 9.5 x10(3)/mc L [facility] Red Blood Cell 2.55(L) 4.58 - 5.54 x10(6)/mc L [facility] Hemoglobin 7.7(L) 13.7 - 16.5 gm/dL [facility] Hematocrit 24.2(L) 40.5 - 48.5 % [facility] Mean Cell Volume 94.9(H) 82.9 - 93.1 fL [facility] Mean Cell Hemoglobin 30.2 27.5 - 32.1 pg [facility] Mean Cell Hemoglobin Concentration 31.8(L) 32.0 - 35.7 gm/dL [facility] Platelet 316 145 - 357 x10(3)/[facility] LABORATORY RDW Standard Deviation 56.2(H) 36.0 - 45.0 [facility] LABORATORY RDW coefficient of variation 16.0(H) 11.4 - 13.8 % [facility] Mean Platelet Volume 8.2 7.6 - 12.9 [facility] LABORATORY NRBC% auto 0.0 % [facility] NRBC Absolute 0.000 0.000 - 0.000 x10(3)/[facility] LABORATORY Blood specimen (specimen) 04/21/2018 5:50 AM EDT 04/21/2018 6:29 AM EDT Narrative Resulting Agency Comment Spec In Lab Apple Gutierrez MD HEMATOLOGY ORDERABLE S [facility] [place] [address] * (ABNORMAL) Basic Metabolic Panel (non-fasting) (04/21/2018 5:50 AM EDT) Glucose 97 65 - 199 mg/dL [facility] Comment:Diabetes: >=200 mg/d L plus symptoms Blood Urea Nitrogen 34(H) 10 - 20 mg/dL [facility] Creatinine 2.30(H) 0.80 - 1.50 mg/dL [facility] [...] questions. Chloride 105 98 - 107 mmol/L [facility] Carbon Dioxide 21(L) 22 - 31 mmol/L [facility] Anion Gap 12 5 - 15 mmol/L [facility] Calcium 8.1(L) 8.5 - 10.5 mg/dL [facility] Est Glomerular Filtration Rate 31(L) >=60 mL/min/1. 73 m?? [facility] Comment: The eGFR was calculated using the CKD-EPI equation. As with all creatinine based estimates of kidney function, eGFR values calculated with the CKD-EPI equation are not accurate in patients with acute kidney failure, extremes of body mass or the acutely ill. [email or web address] eGFR 35(L) >=60 mL/min/1. 73 m?? [facility] Comment: The eGFR was calculated using the CKD-EPI equation. As with all creatinine based estimates of kidney function, eGFR values calculated with the CKD-EPI equation are not accurate in patients with acute kidney failure, extremes of body mass or the acutely ill. [email or web address] Blood specimen (specimen) 04/21/2018 5:50 AM EDT 04/21/2018 6:29 AM EDT Narrative Resulting Agency Comment Spec In Lab Hay Sparks MD CHEMISTRY ORDERABLES [facility] [place] [address] * Differential, Automated (04/20/2018 5:48 AM EDT) Pathologist [facility] Neutrophil % 74.0 % [facility] Neutrophil Absolute 5.39 1.70 - 6.10 x10(3)/[facility] LABORATORY Lymph % 12.8 % [facility] Lymphocytes Abs 0.9 0.9 - 3.2 x10(3)/[facility] LABORATORY Monocyte % 8.2 % [facility] Monocyte Abs 0.6 0.3 - 0.9 x10(3)/[facility] LABORATORY Eos % 4.0 % [facility] Eosinophils Abs 0.3 0.0 - 0.4 x10(3)/[facility] Basophil % 0.5 % [facility] Baso Absolute 0.0 0.0 - 0.1 x10(3)/[facility] Immature Gran % 0.50 % [facility] Comment: Immature granulocytes(IG's)percentage and absolute count will include metamyelocytes, myelocytes, and promyelocytes. Blood smears from CBCs yielding IG's will be scanned manually for concordance. If this scan disagrees with the automated IG or if promyelocytes are noted, a manual differential will be performed. Immature Gran Absolute 0.04 0.00 - 0.04 x10(3)/[facility] Blood specimen (specimen) 04/20/2018 5:48 AM EDT 04/20/2018 6:06 AM EDT Narrative Resulting Agency Comment Spec In Lab Apple Gutierrez MD HEMATOLOGY ORDERABLE S [facility] [place] [address] * (ABNORMAL) Hemogram (04/20/2018 5:48 AM EDT) Pathologist [facility] White Blood Cell 7.3 4.0 - 9.5 x10(3)/[facility] LABORATORY Red Blood Cell 2.53(L) 4.58 - 5.54 x10(6)/mc L [facility] Hemoglobin 7.8(L) 13.7 - 16.5 gm/dL [facility] Hematocrit 23.7(L) 40.5 - 48.5 % [facility] Mean Cell Volume 93.7(H) 82.9 - 93.1 fL [facility] Mean Cell Hemoglobin 30.8 27.5 - 32.1 pg [facility] Mean Cell Hemoglobin Concentration 32.9 32.0 - 35.7 gm/dL [facility] Platelet 302 145 - 357 x10(3)/mc L [facility] RDW Standard Deviation 54.4(H) 36.0 - 45.0 [facility] LABORATORY RDW coefficient of variation 15.9(H) 11.4 - 13.8 % [facility] Mean Platelet Volume 8.5 7.6 - 12.9 [facility] LABORATORY NRBC% auto 0.0 % [facility] NRBC Absolute 0.000 0.000 - 0.000 x10(3)/mc L [facility] Blood specimen (specimen) 04/20/2018 5:48 AM EDT 04/20/2018 6:06 AM EDT Narrative Resulting Agency Comment Spec In Lab Apple Gutiererz MD HEMATOLOGY ORDERABLE S [facility] [place] [address] * APTT (04/20/2018 5:48 AM EDT) Partial Thromboplastin Time 27 25 - 37 sec [facility] Comment: The PTT is NOT appropriate for heparin monitoring. Use the Anti-Xa level for heparin monitoring (HEP UFH) or LMWH monitoring (HEP LMW). A PTT less than 37 seconds generally indicates adequate hemostasis. Blood specimen (specimen) 04/20/2018 5:48 AM EDT 04/20/2018 6:06 AM EDT Narrative Resulting Agency Comment Spec In Lab Chase Olvera MD HEMATOLOGY ORDERA BLES Performing Organization Address [facility] de Phone Number [facility] [place] [address] * Prothrombin Time (04/20/2018 5:48 AM EDT) Prothrombin Time 11.6 9.4 - 12.5 sec [facility] International Normalization Ratio 1.0 [facility] Comment: An INR [...] MD HEMATOLOGY ORDERA BLES Performing Organization Address [facility] de Phone Number [facility] [place] [address] * (ABNORMAL) Basic Metabolic Panel (non-fasting) (04/20/2018 5:48 AM EDT) Glucose 103 65 - 199 mg/dL [facility] Comment:Diabetes: >=200 mg/d L plus symptoms Blood Urea Nitrogen 33(H) 10 - 20 mg/dL [facility] Creatinine 2.38(H) 0.80 - 1.50 mg/dL [facility] Sodium 138 135 - 145 mmol/L [facility] Potassium 4.7 3.5 - 5.0 mmol/L [facility] Comment: Please note: ??Patients with WBC >100,000 may have falsely elevated Potassium levels. ??For accurate Potassium quantification in these patients send serum separator tube ([facility] top) for subsequent determinations. ??Contact the Clinical Chemistry Laboratory if there are any questions. Chloride 104 98 - 107 mmol/L [facility] Carbon Dioxide 21(L) 22 - 31 mmol/L [facility] Anion Gap 13 5 - 15 mmol/L [facility] Calcium 8.0(L) 8.5 - 10.5 mg/dL [facility] Est Glomerular Filtration Rate 29(L) >=60 mL/min/1. 73 m?? [facility] Comment: The eGFR was calculated using the CKD-EPI equation. As with all creatinine based estimates of kidney function, eGFR values calculated with the CKD-EPI equation are not accurate in patients with acute kidney failure, extremes of body mass or the acutely ill. [email or web address] eGFR 34(L) >=60 mL/min/1. 73 m?? [facility] Comment: The eGFR was calculated using the CKD-EPI equation. As with all creatinine based estimates of kidney function, eGFR values calculated with the CKD-EPI equation are not accurate in patients with acute kidney failure, extremes of body mass or the acutely ill. [email or web address] Blood specimen (specimen) 04/20/2018 5:48 AM EDT 04/20/2018 6:06 AM EDT Narrative Resulting Agency Comment Spec In Lab Hay Sparks MD CHEMISTRY ORDERABLES [facility] [place] [address] * Anaerobic Culture (04/19/2018 9:25 AM EDT) Anaerobic Culture No anaerobic organisms isolated [facility] Skin (tissue) specimen (specimen) 04/19/2018 9:25 AM EDT 04/19/2018 9:37 AM EDT Comment:LEFT ARM SNUFFBOX PS EUDOANEURYSM FOR AEROBIC, ANAEROBIC, GRAM STAIN Narrative Resulting Agency Comment Spec In Lab Odalis Elias MD MICROBIOLOGY - GENERAL ORDERABLES Performing Organization Address [facility]/ZIP Co de Phone Number [facility] [place] [address] * (ABNORMAL) Tissue culture (04/19/2018 9:25 AM EDT) Pathologist [facility] Emergency Department Tissue Culture Rare Corynebacterium species : possible contaminant(A) [facility] Gram Stain Many Neutrophils seen Rare Gram Negative Rods seen (A) [facility] Organism Gram Negative Rods(A) [facility] Skin (tissue) specimen (specimen) 04/19/2018 9:25 AM EDT 04/19/2018 9:37 AM EDT Comment:LEFT ARM SNUFFBOX PS EUDOANEURYSM FOR AEROBIC, ANAEROBIC, GRAM STAIN Narrative Resulting Agency Comment Spec In Lab Odalis Elias MD MICROBIOLOGY - GENERAL ORDERABLES Performing Organization Address [facility] Co de Phone Number [facility] [place] [address] * Differential, Automated (04/19/2018 6:25 AM EDT) Pathologist [facility] Emergency Department Neutrophil % 68.5 % [facility] Neutrophil Absolute 3.75 1.70 - 6.10 x10(3)/[facility] LABORATORY Lymph % 17.3 % [facility] Lymphocytes Abs 1.0 0.9 - 3.2 x10(3)/[facility] LABOR[facility]ORY Monocyte % 9.3 % [facility] Monocyte Abs 0.5 0.3 - 0.9 x10(3)/[facility] LABOR[facility]ORY Eos % 4.0 % [facility] Eosinophils Abs 0.2 0.0 - 0.4 x10(3)/[facility] LABORATORY Basophil % 0.7 % [facility] Baso Absolute 0.0 0.0 - 0.1 x10(3)/[facility] LABORATORY Immature Gran % 0.20 % [facility] Comment: Immature granulocytes(IG's)percentage and absolute count will include metamyelocytes, myelocytes, and promyelocytes. Blood smears from CBCs yielding IG's will be scanned manually for concordance. If this scan disagrees with the automated IG or if promyelocytes are noted, a manual differential will be performed. Immature Gran Absolute 0.01 0.00 - 0.04 x10(3)/mcL [facility] Blood specimen (specimen) 04/19/2018 6:25 AM EDT 04/19/2018 6:32 AM EDT Narrative Resulting Agency Comment Spec In Lab Apple Gutierrez MD HEMATOLOGY ORDERABLE S [facility] [place] [address] * (ABNORMAL) Hemogram (04/19/2018 6:25 AM EDT) White Blood Cell 5.5 4.0 - 9.5 x10(3)/mc L [facility] Red Blood Cell 2.52(L) 4.58 - 5.54 x10(6)/mc L [facility] Hemoglobin 7.7(L) 13.7 - 16.5 gm/dL [facility] Hematocrit 23.3(L) 40.5 - 48.5 % [facility] Mean Cell Volume 92.5 82.9 - 93.1 fL [facility] Mean Cell Hemoglobin 30.6 27.5 - 32.1 pg [facility] Mean Cell Hemoglobin Concentration 33.0 32.0 - 35.7 gm/dL [facility] Platelet 274 145 - 357 x10(3)/mc L [facility] RDW Standard Deviation 53.1(H) 36.0 - 45.0 fL [facility] RDW coefficient of variation 15.6(H) 11.4 - 13.8 % [facility] Mean Platelet Volume 8.3 7.6 - 12.9 fL [facility] NRBC% auto 0.0 % [facility] NRBC Absolute 0.000 0.000 - 0.000 x10(3)/mc L [facility] Blood specimen (specimen) 04/19/2018 6:25 AM EDT 04/19/2018 6:32 AM EDT Narrative Resulting Agency Comment Spec In Lab Apple Gutierrez MD HEMATOLOGY ORDERABLE S Performing Organization Address [facility] Co de Phone Number [facility] [place] [address] * APTT (04/19/2018 6:25 AM EDT) Partial Thromboplastin Time 27 25 - 37 sec [facility] Comment: The PTT is NOT appropriate for heparin monitoring. Use the Anti-Xa level for heparin monitoring (HEP UFH) or LMWH monitoring (HEP LMW). A PTT less than 37 seconds generally indicates adequate hemostasis. Blood specimen (specimen) 04/19/2018 6:25 AM EDT 04/19/2018 6:32 AM EDT Narrative Resulting Agency Comment Spec In Lab Chase Olvera MD HEMATOLOGY ORDERA BLES Performing Organization Address [facility] de Phone Number [facility] [place] [address] * Prothrombin Time (04/19/2018 6:25 AM EDT) Prothrombin Time 11.5 9.4 - 12.5 sec [facility] International Normalization Ratio 1.0 [facility] Comment: An INR [...] Lab Chase Olvera MD HEMATOLOGY ORDERA BLES [facility] [place] [address] * (ABNORMAL) Basic Metabolic Panel (non-fasting) (04/19/2018 6:25 AM EDT) Glucose 100 65 - 199 mg/dL [facility] Comment:Diabetes: >=200 mg/d L plus symptoms Blood Urea Nitrogen 35(H) 10 - 20 mg/dL [facility] Creatinine 2.12(H) 0.80 - 1.50 mg/dL [facility] [...] questions. Chloride 104 98 - 107 mmol/L [facility] Carbon Dioxide 21(L) 22 - 31 mmol/L [facility] Anion Gap 12 5 - 15 mmol/L [facility] Calcium 8.0(L) 8.5 - 10.5 mg/dL [facility] Est Glomerular Filtration Rate 34(L) >=60 mL/min/1. 73 m?? [facility] Comment: The eGFR was calculated using the CKD-EPI equation. As with all creatinine based estimates of kidney function, eGFR values calculated with the CKD-EPI equation are not accurate in patients with acute kidney failure, extremes of body mass or the acutely ill. http://[email or web address] eGFR 39(L) >=60 mL/min/1. 73 m?? [facility] Comment: The eGFR was calculated using the CKD-EPI equation. As with all creatinine based estimates of kidney function, eGFR values calculated with the CKD-EPI equation are not accurate in patients with acute kidney failure, extremes of body mass or the acutely ill. [email or web address]/[email or web address] Blood specimen (specimen) 04/19/2018 6:25 AM EDT 04/19/2018 6:32 AM EDT Narrative Resulting Agency Comment Spec In Lab Hay Sparks MD CHEMISTRY ORDERABLES Performing Organization Address [facility] de Phone Number [facility] [place] [address] * Tacrolimus level (04/19/2018 6:25 AM EDT) Tacrolimus 2.8 ng/mL [facility] Comment: Trough therapeutic: ??5-15 ng/mL Performed by ultra-performance liquid chromatography tandem mass spectrometry (UPLCMS/MS). This test was developed and its performance characteristics determined by [facility]. It has not been cleared [...] Performing Organization Address [facility] de Phone Number [facility] [place] [address] * AVF/Established Access Evaluation (04/18/2018 1:29 PM EDT) VB Text Report Department: Vascular Surgery Lab Patient: [id number] (CHRISTY AMBROSE) CPT: 15368 ICD10: N18.6;R57.8 Referring Physician: CHASE OLVERA ?? [...] LABORATORY Neutrophil Absolute 4.29 1.70 - 6.10 x10(3)/[facility] LABORATORY Lymph % 19.6 % [facility] Lymphocytes Abs 1.2 0.9 - 3.2 x10(3)/[facility] LABORATORY Monocyte % 8.2 % [facility] Monocyte Abs 0.5 0.3 - 0.9 x10(3)/[facility] LABORATORY Eos % 3.9 % [facility] Eosinophils Abs 0.2 0.0 - 0.4 x10(3)/[facility] LABORATORY Basophil % 0.5 % [facility] Baso Absolute 0.0 0.0 - 0.1 x10(3)/[facility] LABORATORY Immature Gran % 0.50 % [facility] Comment: Immature granulocytes(IG's)percentage and absolute count will include metamyelocytes, myelocytes, and promyelocytes. Blood smears from CBCs yielding IG's will be scanned manually for concordance. If this scan disagrees with the automated IG or if promyelocytes are noted, a manual differential will be performed. Immature Gran Absolute 0.03 0.00 - 0.04 x10(3)/[facility] LABORATORY Blood specimen (specimen) 04/18/2018 5:26 AM EDT 04/18/2018 5:39 AM EDT Narrative Resulting Agency Comment Spec In Lab Apple Gutierrez MD HEMATOLOGY ORDERABLE S [facility] [place] [address] * (ABNORMAL) Hemogram (04/18/2018 5:26 AM EDT) White Blood Cell 6.4 4.0 - 9.5 x10(3)/mc L [facility] Red Blood Cell 2.65(L) 4.58 - 5.54 x10(6)/mc L [facility] Hemoglobin 8.0(L) 13.7 - 16.5 gm/dL [facility] Hematocrit 24.6(L) 40.5 - 48.5 % [facility] Mean Cell Volume 92.8 82.9 - 93.1 fL [facility] Mean Cell Hemoglobin 30.2 27.5 - 32.1 pg [facility] Mean Cell Hemoglobin Concentration 32.5 32.0 - 35.7 gm/dL [facility] Platelet 305 145 - 357 x10(3)/mc L [facility] RDW Standard Deviation 53.2(H) 36.0 - 45.0 fL [facility] RDW coefficient of variation 15.7(H) 11.4 - 13.8 % [facility] Mean Platelet Volume 8.3 7.6 - 12.9 fL [facility] NRBC% auto 0.0 % [facility] NRBC Absolute 0.000 0.000 - 0.000 x10(3)/mc L [facility] Blood specimen (specimen) 04/18/2018 5:26 AM EDT 04/18/2018 5:39 AM EDT Narrative Resulting Agency Comment Spec In Lab Apple Gutierrez MD HEMATOLOGY ORDERABLE S Performing Organization Address [facility] Co de Phone Number [facility] [place] [address] * APTT (04/18/2018 5:26 AM EDT) Partial Thromboplastin Time 27 25 - 37 sec [facility] Comment: The PTT is NOT appropriate for heparin monitoring. Use the Anti-Xa level for heparin monitoring (HEP UFH) or LMWH monitoring (HEP LMW). A PTT less than 37 seconds generally indicates adequate hemostasis. Blood specimen (specimen) 04/18/2018 5:26 AM EDT 04/18/2018 5:39 AM EDT Narrative Resulting Agency Comment Spec In Lab Chase Olvera MD HEMATOLOGY ORDERA BLES Performing Organization Address City/[facility]/ZIP Co de Phone Number [facility] [place] [address] * Prothrombin Time (04/18/2018 5:26 AM EDT) Prothrombin Time 11.2 9.4 - 12.5 sec [facility] International Normalization Ratio 1.0 [facility] Comment: An INR [...] Lab Chase Olvera MD HEMATOLOGY ORDERA BLES [facility] [place] [address] * (ABNORMAL) Basic Metabolic Panel (non-fasting) (04/18/2018 5:26 AM EDT) Glucose 103 65 - 199 mg/dL [facility] Comment:Diabetes: >=200 mg/d L plus symptoms Blood Urea Nitrogen 36(H) 10 - 20 mg/dL [facility] Creatinine 2.30(H) 0.80 - 1.50 mg/dL [facility] Sodium 135 135 - 145 mmol/L [facility] Potassium 4.3 3.5 - 5.0 mmol/L [facility] Comment: Please note: ??Patients with WBC >100,000 may have falsely elevated Potassium levels. ??For accurate Potassium quantification in these patients send serum separator tube (gold top) for subsequent determinations. ??Contact the Clinical Chemistry Laboratory if there are any questions. Chloride 104 98 - 107 mmol/L [facility] Carbon Dioxide 20(L) 22 - 31 mmol/L [facility] Anion Gap 11 5 - 15 mmol/L [facility] Calcium 8.3(L) 8.5 - 10.5 mg/dL [facility] Est Glomerular Filtration Rate 31(L) >=60 mL/min/1. 73 m?? [facility] Comment: The eGFR was calculated using the CKD-EPI equation. As with all creatinine based estimates of kidney function, eGFR values calculated with the CKD-EPI equation are not accurate in patients with acute kidney failure, extremes of body mass or the acutely ill. [email or web address]/[email or web address] eGFR 35(L) >=60 mL/min/1. 73 m?? [facility] Comment: The eGFR was calculated using the CKD-EPI equation. As with all creatinine based estimates of kidney function, eGFR values calculated with the CKD-EPI equation are not accurate in patients with acute kidney failure, extremes of body mass or the acutely ill. [email or web address] Blood specimen (specimen) 04/18/2018 5:26 AM EDT 04/18/2018 5:39 AM EDT Narrative Resulting Agency Comment Spec In Lab Hay Sparks MD CHEMISTRY ORDERABLES Performing Organization Address [facility] Co de Phone Number [facility] [place] [address] * ABORH Recheck Status (04/17/2018 9:07 AM EDT) ABORH Type Recheck Completed [facility] Blood specimen (specimen) 04/17/2018 9:07 AM EDT 04/17/2018 9:22 AM EDT Narrative Resulting Agency Comment Spec In Lab Tim Ogden MD BLOOD BANK LAB ORDE ABDIAS Performing Organization Address [facility] Co de Phone Number [facility] [place] [address] * Antibody screen (04/17/2018 9:07 AM EDT) Ab Screen Interp Negative [facility] Expires at [id number] on: 04/20/2018 [facility] Blood specimen (specimen) 04/17/2018 9:07 AM EDT 04/17/2018 9:22 AM EDT Narrative Resulting Agency Comment Spec In Lab Tim Ogden MD BLOOD BANK LAB ORDE RABKAYDEN Performing Organization Address City/[facility]/ZIP Co de Phone Number [facility] [place] [address] * ABO/Rh Typing (04/17/2018 9:07 AM EDT) ABORH Type A Pos [facility] Blood specimen (specimen) 04/17/2018 9:07 AM EDT 04/17/2018 9:22 AM EDT Narrative Resulting Agency Comment Spec In Lab Tim Ogden MD BLOOD BANK LAB RYAN CALERO [facility] [place] [address] * Differential, Automated (04/17/2018 4:43 AM EDT) Neutrophil % 64.8 % [facility] Neutrophil Absolute 3.62 1.70 - 6.10 x10(3)/[facility] LABORATORY Lymph % 18.6 % [facility] Lymphocytes Abs 1.0 0.9 - 3.2 x10(3)/[facility] LABORATORY Monocyte % 10.0 % [facility] Monocyte Abs 0.6 0.3 - 0.9 x10(3)/[facility] LABORATORY Eos % 5.0 % [facility] Eosinophils Abs 0.3 0.0 - 0.4 x10(3)/[facility] LABORATORY Basophil % 0.9 % [facility] Baso Absolute 0.0 0.0 - 0.1 x10(3)/[facility] LABORATORY Immature Gran % 0.70 % [facility] Comment: Immature granulocytes(IG's)percentage and absolute count will include metamyelocytes, myelocytes, and promyelocytes. Blood smears from CBCs yielding IG's will be scanned manually for concordance. If this scan disagrees with the automated IG or if promyelocytes are noted, a manual differential will be performed. Immature Gran Absolute 0.04 0.00 - 0.04 x10(3)/[facility] LABORATORY Blood specimen (specimen) 04/17/2018 4:43 AM EDT 04/17/2018 5:09 AM EDT Narrative Resulting Agency Comment Spec In Lab Apple Gutierrez MD HEMATOLOGY ORDERABLE S [facility] [place] [address] * (ABNORMAL) Hemogram (04/17/2018 4:43 AM EDT) White Blood Cell 5.6 4.0 - 9.5 x10(3)/mc L [facility] Red Blood Cell 2.47(L) 4.58 - 5.54 x10(6)/mc L [facility] Hemoglobin 7.5(L) 13.7 - 16.5 gm/dL [facility] Hematocrit 22.9(L) 40.5 - 48.5 % [facility] Mean Cell Volume 92.7 82.9 - 93.1 fL [facility] Mean Cell Hemoglobin 30.4 27.5 - 32.1 pg [facility] Mean Cell Hemoglobin Concentration 32.8 32.0 - 35.7 gm/dL [facility] Platelet 282 145 - 357 x10(3)/mc L [facility] RDW Standard Deviation 53.0(H) 36.0 - 45.0 [facility]ATORY RDW coefficient of variation 15.6(H) 11.4 - 13.8 % [facility] Mean Platelet Volume 8.3 7.6 - 12.9 fL [facility] NRBC% auto 0.0 % [facility] NRBC Absolute 0.000 0.000 - 0.000 x10(3)/mc L [facility] Blood specimen (specimen) 04/17/2018 4:43 AM EDT 04/17/2018 5:09 AM EDT Narrative Resulting Agency Comment Spec In Lab Apple Gutierrez MD HEMATOLOGY ORDERABLE S Performing Organization Address [facility]/ZIP Co de Phone Number [facility] [place] [address] * APTT (04/17/2018 4:43 AM EDT) Partial Thromboplastin Time 27 25 - 37 sec [facility] Comment: The PTT is NOT appropriate for heparin monitoring. Use the Anti-Xa level for heparin monitoring (HEP UFH) or LMWH monitoring (HEP LMW). A PTT less than 37 seconds generally indicates adequate hemostasis. Blood specimen (specimen) 04/17/2018 4:43 AM EDT 04/17/2018 5:09 AM EDT Narrative Resulting Agency Comment Spec In Lab Chase Olvera MD HEMATOLOGY ORDERA BLES Performing Organization Address [facility] Co de Phone Number [facility] [place] [address] * Prothrombin Time (04/17/2018 4:43 AM EDT) Prothrombin Time 11.7 9.4 - 12.5 sec [facility] International Normalization Ratio 1.0 [facility] Comment: An INR [...] MD HEMATOLOGY ORDERA BLES Performing Organization Address [facility]/ZIP Co de Phone Number [facility] [place] [address] * (ABNORMAL) Basic Metabolic Panel (non-fasting) (04/17/2018 4:43 AM EDT) Glucose 100 65 - 199 mg/dL [facility] Comment:Diabetes: >=200 mg/d L plus symptoms Blood Urea Nitrogen 32(H) 10 - 20 mg/dL [facility] Creatinine 2.27(H) 0.80 - 1.50 mg/dL [facility] Sodium 135 135 - 145 mmol/L [facility] Potassium 4.1 3.5 - 5.0 mmol/L [facility] Comment: Please note: ??Patients with WBC >100,000 may have falsely elevated Potassium levels. ??For accurate Potassium quantification in these patients send serum separator tube (gold top) for subsequent determinations. ??Contact the Clinical Chemistry Laboratory if there are any questions. Chloride 104 98 - 107 mmol/L [facility] Carbon Dioxide 19(L) 22 - 31 mmol/L [facility] Anion Gap 12 5 - 15 mmol/L [facility] Calcium 7.7(L) 8.5 - 10.5 mg/dL [facility] Est Glomerular Filtration Rate 31(L) >=60 mL/min/1. 73 m?? [facility] Comment: The eGFR was calculated using the CKD-EPI equation. As with all creatinine based estimates of kidney function, eGFR values calculated with the CKD-EPI equation are not accurate in patients with acute kidney failure, extremes of body mass or the acutely ill. [email or web address] [email or web address] eGFR 36(L) >=60 mL/min/1. 73 m?? [facility] Comment: The eGFR was calculated using the CKD-EPI equation. As with all creatinine based estimates of kidney function, eGFR values calculated with the CKD-EPI equation are not accurate in patients with acute kidney failure, extremes of body mass or the acutely ill. [email or web address] [email or web address] Blood specimen (specimen) 04/17/2018 4:43 AM EDT 04/17/2018 5:09 AM EDT Narrative Resulting Agency Comment Spec In Lab Hay Sparks MD CHEMISTRY ORDERABLES [facility] [place] [address] * (ABNORMAL) Differential, Automated (04/16/2018 4:17 AM EDT) Neutrophil % 59.4 % [facility] Neutrophil Absolute 3.07 1.70 - 6.10 x10(3)/ L [facility] Lymph % 24.4 % [facility] Lymphocytes Abs 1.3 0.9 - 3.2 x10(3)/ L [facility] Monocyte % 10.3 % [facility] Monocyte Abs 0.5 0.3 - 0.9 x10(3)/[facility] LABORATORY Eos % 4.5 % [facility] Eosinophils Abs 0.2 0.0 - 0.4 x10(3)/[facility] LABORATORY Basophil % 0.4 % [facility] Baso Absolute 0.0 0.0 - 0.1 x10(3)/ L [facility] Immature Gran % 1.00 % [facility] Comment: Immature granulocytes(IG's)percentage and absolute count will include metamyelocytes, myelocytes, and promyelocytes. Blood smears from CBCs yielding IG's will be scanned manually for concordance. If this scan disagrees with the automated IG or if promyelocytes are noted, a manual differential will be performed. Immature Gran Absolute 0.05(H) 0.00 - 0.04 x10(3)/ L [facility] Blood specimen (specimen) 04/16/2018 4:17 AM EDT 04/16/2018 4:52 AM EDT Narrative Resulting Agency Comment Spec In Lab Aplpe Gutierrez MD HEMATOLOGY ORDERABLE S Performing Organization Address City/[facility]/ZIP Co de Phone Number [facility] [place] [address] * (ABNORMAL) Hemogram (04/16/2018 4:17 AM EDT) White Blood Cell 5.2 4.0 - 9.5 x10(3)/[facility] LABORATORY Red Blood Cell 2.62(L) 4.58 - 5.54 x10(6)/ L [facility] Hemoglobin 7.9(L) 13.7 - 16.5 gm/dL [facility] Hematocrit 24.9(L) 40.5 - 48.5 % [facility] Mean Cell Volume 95.0(H) 82.9 - 93.1 [facility] Mean Cell Hemoglobin 30.2 27.5 - 32.1 pg [facility] Mean Cell Hemoglobin Concentration 31.7(L) 32.0 - 35.7 gm/dL [facility] Platelet 288 145 - 357 x10(3)/[facility] LABORATORY RDW Standard Deviation 52.6(H) 36.0 - 45.0 [facility] LABORATORY RDW coefficient of variation 15.4(H) 11.4 - 13.8 % [facility] Mean Platelet Volume 8.5 7.6 - 12.9 [facility] LABORATORY NRBC% auto 0.0 % [facility] NRBC Absolute 0.000 0.000 - 0.000 x10(3)/[facility] LABORATORY Blood specimen (specimen) 04/16/2018 4:17 AM EDT 04/16/2018 4:52 AM EDT Narrative Resulting Agency Comment Spec In Lab Apple Gutierrez MD HEMATOLOGY ORDERABLE S [facility] [place] [address] * APTT (04/16/2018 4:17 AM EDT) Partial Thromboplastin Time 27 25 - 37 sec [facility] Comment: The PTT is NOT appropriate for heparin monitoring. Use the Anti-Xa level for heparin monitoring (HEP UFH) or LMWH monitoring (HEP LMW). A PTT less than 37 seconds generally indicates adequate hemostasis. Blood specimen (specimen) 04/16/2018 4:17 AM EDT 04/16/2018 4:52 AM EDT Narrative Resulting Agency Comment Spec In Lab Chase Olvera MD HEMATOLOGY ORDERA BLES Performing Organization Address [facility] de Phone Number [facility] [place] [address] * Prothrombin Time (04/16/2018 4:17 AM EDT) Prothrombin Time 11.5 9.4 - 12.5 sec [facility] International Normalization Ratio 1.0 [facility] Comment: An INR [...] MD HEMATOLOGY ORDERA BLES Performing Organization Address [facility] de Phone Number [facility] [place] [address] * (ABNORMAL) Basic Metabolic Panel (non-fasting) (04/16/2018 4:17 AM EDT) Glucose 108 65 - 199 mg/dL [facility] Comment:Diabetes: >=200 mg/d L plus symptoms Blood Urea Nitrogen 31(H) 10 - 20 mg/dL [facility] Creatinine 2.27(H) 0.80 - 1.50 mg/dL [facility] Sodium 135 135 - 145 mmol/L [facility] Potassium 4.0 3.5 - 5.0 mmol/L [facility] Comment: Please note: ??Patients with WBC >100,000 may have falsely elevated Potassium levels. ??For accurate Potassium quantification in these patients send serum separator tube (gold top) for subsequent determinations. ??Contact the Clinical Chemistry Laboratory if there are any questions. Chloride 103 98 - 107 mmol/L [facility] Carbon Dioxide 20(L) 22 - 31 mmol/L [facility] Anion Gap 12 5 - 15 mmol/L [facility] Calcium 7.7(L) 8.5 - 10.5 mg/dL [facility] Est Glomerular Filtration Rate 31(L) >=60 mL/min/1. 73 m?? [facility] Comment: The eGFR was calculated using the CKD-EPI equation. As with all creatinine based estimates of kidney function, eGFR values calculated with the CKD-EPI equation are not accurate in patients with acute kidney failure, extremes of body mass or the acutely ill. [email or web address] eGFR 36(L) >=60 mL/min/1. 73 m?? [facility] Comment: The eGFR was calculated using the CKD-EPI equation. As with all creatinine based estimates of kidney function, eGFR values calculated with the CKD-EPI equation are not accurate in patients with acute kidney failure, extremes of body mass or the acutely ill. [email or web address] Blood specimen (specimen) 04/16/2018 4:17 AM EDT 04/16/2018 4:52 AM EDT Narrative Resulting Agency Comment Spec In Lab Hay Sparks MD CHEMISTRY ORDERABLES [facility] [place] [address] * APTT (04/15/2018 4:57 AM EDT) Partial Thromboplastin Time 27 25 - 37 sec [facility] Comment: The PTT is NOT appropriate for heparin monitoring. Use the Anti-Xa level for heparin monitoring (HEP UFH) or LMWH monitoring (HEP LMW). A PTT less than 37 seconds generally indicates adequate hemostasis. Blood specimen (specimen) 04/15/2018 4:57 AM EDT 04/15/2018 5:23 AM EDT Narrative Resulting Agency Comment Spec In Lab Chase Olvera MD HEMATOLOGY ORDERA BLES Performing Organization Address [facility] de Phone Number [facility] [place] [address] * (ABNORMAL) Prothrombin Time (04/15/2018 4:57 AM EDT) Prothrombin Time 12.9(H) 9.4 - 12.5 sec [facility] International Normalization Ratio 1.2 [facility] Comment: An INR [...] MD HEMATOLOGY ORDERA BLES Performing Organization Address [facility] de Phone Number [facility] [place] [address] * Differential, Automated (04/15/2018 4:47 AM EDT) Neutrophil % 59.8 % [facility] Neutrophil Absolute 2.98 1.70 - 6.10 x10(3)/[facility] LAB[facility] Lymph % 22.4 % [facility] Lymphocytes Abs 1.1 0.9 - 3.2 x10(3)/[facility] LAB[facility]ORY Monocyte % 11.2 % [facility] Monocyte Abs 0.6 0.3 - 0.9 x10(3)/[facility] LAB[facility] Eos % 5.6 % [facility] Eosinophils Abs 0.3 0.0 - 0.4 x10(3)/[facility] LABOR[facility]ORY Basophil % 0.4 % [facility] Baso Absolute 0.0 0.0 - 0.1 x10(3)/[facility] LABORATORY Immature Gran % 0.60 % [facility] Comment: Immature granulocytes(IG's)percentage and absolute count will include metamyelocytes, myelocytes, and promyelocytes. Blood smears from CBCs yielding IG's will be scanned manually for concordance. If this scan disagrees with the automated IG or if promyelocytes are noted, a manual differential will be performed. Immature Gran Absolute 0.03 0.00 - 0.04 x10(3)/[facility]ATORY Blood specimen (specimen) 04/15/2018 4:47 AM EDT 04/15/2018 4:56 AM EDT Narrative Resulting Agency Comment Spec In Lab Apple Gutierrez MD HEMATOLOGY ORDERABLE S [facility] [place] [address] * (ABNORMAL) Hemogram (04/15/2018 4:47 AM EDT) White Blood Cell 5.0 4.0 - 9.5 x10(3)/mc L [facility] Red Blood Cell 2.48(L) 4.58 - 5.54 x10(6)/mc L [facility] Hemoglobin 7.5(L) 13.7 - 16.5 gm/dL [facility] Hematocrit 23.3(L) 40.5 - 48.5 % [facility] Mean Cell Volume 94.0(H) 82.9 - 93.1 fL [facility] Mean Cell Hemoglobin 30.2 27.5 - 32.1 pg [facility] Mean Cell Hemoglobin Concentration 32.2 32.0 - 35.7 gm/dL [facility] Platelet 224 145 - 357 x10(3)/mc L [facility] RDW Standard Deviation 52.9(H) 36.0 - 45.0 fL [facility] RDW coefficient of variation 15.4(H) 11.4 - 13.8 % [facility] Mean Platelet Volume 8.3 7.6 - 12.9 fL [facility] NRBC% auto 0.0 % [facility] NRBC Absolute 0.000 0.000 - 0.000 x10(3)/mc L [facility] Blood specimen (specimen) 04/15/2018 4:47 AM EDT 04/15/2018 4:56 AM EDT Narrative Resulting Agency Comment Spec In Lab Apple Gutierrez MD HEMATOLOGY ORDERABLE S Performing Organization Address City/State/[facility] Co de Phone Number [facility] [place] [address] * (ABNORMAL) Basic Metabolic Panel (non-fasting) (04/15/2018 4:47 AM EDT) Glucose 105 65 - 199 mg/dL [facility] Comment:Diabetes: >=200 mg/d L plus symptoms Blood Urea Nitrogen 30(H) 10 - 20 mg/dL [facility] Creatinine 2.17(H) 0.80 - 1.50 mg/dL [facility] Sodium 138 135 - 145 mmol/L [facility] Potassium 4.6 3.5 - 5.0 mmol/L [facility] Comment: Please note: ??Patients with WBC >100,000 may have falsely elevated Potassium levels. ??For accurate Potassium quantification in these patients send serum separator tube (gold top) for subsequent determinations. ??Contact the Clinical Chemistry Laboratory if there are any questions. Chloride 105 98 - 107 mmol/L [facility] Carbon Dioxide 20(L) 22 - 31 mmol/L [facility] Anion Gap 13 5 - 15 mmol/L [facility] Calcium 7.6(L) 8.5 - 10.5 mg/dL [facility] Est Glomerular Filtration Rate 33(L) >=60 mL/min/1. 73 m?? [facility] Comment: The eGFR was calculated using the CKD-EPI equation. As with all creatinine based estimates of kidney function, eGFR values calculated with the CKD-EPI equation are not accurate in patients with acute kidney failure, extremes of body mass or the acutely ill. [email or web address] eGFR 38(L) >=60 mL/min/1. 73 m?? [facility] Comment: The eGFR was calculated using the CKD-EPI equation. As with all creatinine based estimates of kidney function, eGFR values calculated with the CKD-EPI equation are not accurate in patients with acute kidney failure, extremes of body mass or the acutely ill. [email or web address] Blood specimen (specimen) 04/15/2018 4:47 AM EDT 04/15/2018 4:56 AM EDT Narrative Resulting Agency Comment Spec In Lab Hay Sparks MD CHEMISTRY ORDERABLES Performing Organization Address City/State/[facility] Co de Phone Number [facility] [place] [address] * (ABNORMAL) Differential, Automated (04/14/2018 5:48 AM EDT) Neutrophil % 68.9 % [facility] Neutrophil Absolute 3.74 1.70 - 6.10 x10(3)/mc L [facility] Lymph % 15.7 % [facility] Lymphocytes Abs 0.8(L) 0.9 - 3.2 x10(3)/mc L [facility] Monocyte % 11.1 % [facility] Monocyte Abs 0.6 0.3 - 0.9 x10(3)/mc L [facility] Eos % 3.7 % [facility] Eosinophils Abs 0.2 0.0 - 0.4 x10(3)/mc L [facility] Basophil % 0.2 % [facility] Baso Absolute 0.0 0.0 - 0.1 x10(3)/[facility] LABORATORY Immature Gran % 0.40 % [facility] Comment: Immature granulocytes(IG's)percentage and absolute count will include metamyelocytes, myelocytes, and promyelocytes. Blood smears from CBCs yielding IG's will be scanned manually for concordance. If this scan disagrees with the automated IG or if promyelocytes are noted, a manual differential will be performed. Immature Gran Absolute 0.02 0.00 - 0.04 x10(3)/[facility] LABORATORY Blood specimen (specimen) 04/14/2018 5:48 AM EDT 04/14/2018 5:59 AM EDT Narrative Resulting Agency Comment Spec In Lab Apple Gutierrez MD HEMATOLOGY ORDERABLE S Performing Organization Address City/State/[facility] Co de Phone Number [facility] [place] [address] * (ABNORMAL) Hemogram (04/14/2018 5:48 AM EDT) White Blood Cell 5.4 4.0 - 9.5 x10(3)/[facility] LABORATORY Red Blood Cell 2.48(L) 4.58 - 5.54 x10(6)/ L [facility] Hemoglobin 7.5(L) 13.7 - 16.5 gm/dL [facility] Hematocrit 22.9(L) 40.5 - 48.5 % [facility] Mean Cell Volume 92.3 82.9 - 93.1 fL [facility] Mean Cell Hemoglobin 30.2 27.5 - 32.1 pg [facility] Mean Cell Hemoglobin Concentration 32.8 32.0 - 35.7 gm/dL [facility] Platelet 208 145 - 357 x10(3)/ L [facility] RDW Standard Deviation 51.8(H) 36.0 - 45.0 fL [facility] RDW coefficient of variation 15.4(H) 11.4 - 13.8 % [facility] Mean Platelet Volume 8.4 7.6 - 12.9 fL [facility] NRBC% auto 0.0 % [facility] NRBC Absolute 0.000 0.000 - 0.000 x10(3)/mc L [facility] Blood specimen (specimen) 04/14/2018 5:48 AM EDT 04/14/2018 5:59 AM EDT Narrative Resulting Agency Comment Spec In Lab Apple Gutierrez MD HEMATOLOGY ORDERABLE S Performing Organization Address City/[facility]/ZIP Co de Phone Number [facility] [place] [address] * APTT (04/14/2018 5:48 AM EDT) Partial Thromboplastin Time 28 25 - 37 sec [facility] Comment: The PTT is NOT appropriate for heparin monitoring. Use the Anti-Xa level for heparin monitoring (HEP UFH) or LMWH monitoring (HEP LMW). A PTT less than 37 seconds generally indicates adequate hemostasis. Blood specimen (specimen) 04/14/2018 5:48 AM EDT 04/14/2018 5:59 AM EDT Narrative Resulting Agency Comment Spec In Lab Chase Olvera MD HEMATOLOGY ORDERA BLES [facility] [place] [address] * (ABNORMAL) Prothrombin Time (04/14/2018 5:48 AM EDT) Prothrombin Time 15.1(H) 9.4 - 12.5 sec [facility] International Normalization Ratio 1.4 [facility] Comment: An INR [...] Lab Chase Olvera MD HEMATOLOGY ORDERA BLES [facility] [place] [address] * (ABNORMAL) Basic Metabolic Panel (non-fasting) (04/14/2018 5:48 AM EDT) Glucose 110 65 - 199 mg/dL [facility] Comment:Diabetes: >=200 mg/d L plus symptoms Blood Urea Nitrogen 32(H) 10 - 20 mg/dL [facility] Creatinine 2.38(H) 0.80 - 1.50 mg/dL [facility] [...] mmol/L [facility] Carbon Dioxide 20(L) 22 - 31 mmol/L [facility] Anion Gap 12 5 - 15 mmol/L [facility] Calcium 7.6(L) 8.5 - 10.5 mg/dL [facility] Est Glomerular Filtration Rate 29(L) >=60 mL/min/1. 73 m?? [facility] Comment: The eGFR was calculated using the CKD-EPI equation. As with all creatinine based estimates of kidney function, eGFR values calculated with the CKD-EPI equation are not accurate in patients with acute kidney failure, extremes of body mass or the acutely ill. [email or web address] eGFR 34(L) >=60 mL/min/1. 73 m?? [facility] Comment: The eGFR was calculated using the CKD-EPI equation. As with all creatinine based estimates of kidney function, eGFR values calculated with the CKD-EPI equation are not accurate in patients with acute kidney failure, extremes of body mass or the acutely ill. [email or web address] Blood specimen (specimen) 04/14/2018 5:48 AM EDT 04/14/2018 5:59 AM EDT Narrative Resulting Agency Comment Spec In Lab Hay Sparks MD CHEMISTRY ORDERABLES [facility] [place] [address] * Differential, Automated (04/13/2018 8:14 AM EDT) Neutrophil % 66.0 % [facility] Neutrophil Absolute 3.49 1.70 - 6.10 x10(3)/[facility] LABORATORY Lymph % 16.3 % [facility] Lymphocytes Abs 0.9 0.9 - 3.2 x10(3)/[facility] LABORATORY Monocyte % 10.4 % [facility] Monocyte Abs 0.6 0.3 - 0.9 x10(3)/[facility] LABORATORY Eos % 6.3 % [facility] Eosinophils Abs 0.3 0.0 - 0.4 x10(3)/[facility] LABORATORY Basophil % 0.4 % [facility] Baso Absolute 0.0 0.0 - 0.1 x10(3)/[facility] LABORATORY Immature Gran % 0.60 % [facility] Comment: Immature granulocytes(IG's)percentage and absolute count will include metamyelocytes, myelocytes, and promyelocytes. Blood smears from CBCs yielding IG's will be scanned manually for concordance. If this scan disagrees with the automated IG or if promyelocytes are noted, a manual differential will be performed. Immature Gran Absolute 0.03 0.00 - 0.04 x10(3)/mcL [facility] Blood specimen (specimen) 04/13/2018 8:14 AM EDT 04/13/2018 8:21 AM EDT Narrative Resulting Agency Comment Spec In Lab Apple Gutierrez MD HEMATOLOGY ORDERABLE S [facility] [place] [address] * (ABNORMAL) Hemogram (04/13/2018 8:14 AM EDT) White Blood Cell 5.3 4.0 - 9.5 x10(3)/[facility] LABORATORY Red Blood Cell 2.53(L) 4.58 - 5.54 x10(6)/[facility] LAB[facility]ATORY Hemoglobin 7.8(L) 13.7 - 16.5 gm/dL [facility] Hematocrit 23.3(L) 40.5 - 48.5 % [facility] Mean Cell Volume 92.1 82.9 - 93.1 [facility] Mean Cell Hemoglobin 30.8 27.5 - 32.1 pg [facility] Mean Cell Hemoglobin Concentration 33.5 32.0 - 35.7 gm/dL [facility] Platelet 190 145 - 357 x10(3)/ L [facility] RDW Standard Deviation 53.5(H) 36.0 - 45.0 [facility] LABORATORY RDW coefficient of variation 15.9(H) 11.4 - 13.8 % [facility] Mean Platelet Volume 8.2 7.6 - 12.9 [facility] LABORATORY NRBC% auto 0.0 % [facility] NRBC Absolute 0.000 0.000 - 0.000 x10(3)/[facility] LABORATORY Blood specimen (specimen) 04/13/2018 8:14 AM EDT 04/13/2018 8:21 AM EDT Narrative Resulting Agency Comment Spec In Lab Apple Gutierrez MD HEMATOLOGY ORDERABLE S Performing Organization Address [facility] Co de Phone Number [facility] [place] [address] * APTT (04/13/2018 8:14 AM EDT) Partial Thromboplastin Time 29 25 - 37 sec [facility] Comment: The PTT is [...] ORDERA BLES Performing Organization Address [facility] de Phone Number [facility] [place] [address] * (ABNORMAL) Prothrombin Time (04/13/2018 8:14 AM EDT) Prothrombin Time 17.3(H) 9.4 - 12.5 sec [facility] International Normalization Ratio 1.6 [facility] Comment: An INR [...] Lab Chase Olvera MD HEMATOLOGY ORDERA BLES [facility] [place] [address] * (ABNORMAL) Basic Metabolic Panel (non-fasting) (04/13/2018 8:14 AM EDT) Glucose 108 65 - 199 mg/dL [facility] Comment:Diabetes: >=200 mg/d L plus symptoms Blood Urea Nitrogen 30(H) 10 - 20 mg/dL [facility] Creatinine 2.28(H) 0.80 - 1.50 mg/dL [facility] Sodium 138 135 - 145 mmol/L [facility] Potassium 4.5 3.5 - 5.0 mmol/L [facility] Comment: Please note: ??Patients with WBC >100,000 may have falsely elevated Potassium levels. ??For accurate Potassium quantification in these patients send serum separator tube (gold top) for subsequent determinations. ??Contact the Clinical Chemistry Laboratory if there are any questions. Chloride 104 98 - 107 mmol/L [facility] Carbon Dioxide 20(L) 22 - 31 mmol/L [facility] Anion Gap 14 5 - 15 mmol/L [facility] Calcium 7.7(L) 8.5 - 10.5 mg/dL [facility] Est Glomerular Filtration Rate 31(L) >=60 mL/min/1. 73 m?? [facility] Comment: The eGFR was calculated using the CKD-EPI equation. As with all creatinine based estimates of kidney function, eGFR values calculated with the CKD-EPI equation are not accurate in patients with acute kidney failure, extremes of body mass or the acutely ill. [email or web address]ENEnkf eGFR 36(L) >=60 mL/min/1. 73 m?? [facility] Comment: The eGFR was calculated using the CKD-EPI equation. As with all creatinine based estimates of kidney function, eGFR values calculated with the CKD-EPI equation are not accurate in patients with acute kidney failure, extremes of body mass or the acutely ill. [email or web address] Blood specimen (specimen) 04/13/2018 8:14 AM EDT 04/13/2018 8:21 AM EDT Narrative Resulting Agency Comment Spec In Lab Hay Sparks MD CHEMISTRY ORDERABLES Performing Organization Address [facility] Co de Phone Number [facility] [place] [address] * Tacrolimus level (04/13/2018 8:14 AM EDT) Tacrolimus <2.0 ng/mL [facility] Comment: Trough therapeutic: ??5-15 ng/mL Performed by ultra-performance liquid chromatography tandem mass spectrometry (UPLCMS/MS). This test was developed and its performance characteristics determined by [facility]. It has not been cleared [...] MD CHEMISTRY ORDERAB LES Performing Organization Address [facility] Co de Phone Number [facility] [place] [address] * (ABNORMAL) Protein/Creatinine Ratio, urine (04/13/2018 3:45 AM EDT) Creatinine, Urine 51 mg/dL [facility] Protein, Urine 373(H) 0 - 12 mg/dL [facility] Protein / Creatinine Ratio, Urine 7.3 ratio [facility] Urine specimen (specimen) 04/13/2018 3:45 AM EDT 04/13/2018 3:55 AM EDT Narrative Resulting Agency Comment Spec In Lab Chase Olvera MD URINE ORDERABLES Performing Organization Address City/[facility]/ZIP Co de Phone Number [facility] [place] [address] * (ABNORMAL) Urinalysis Microscopic Exam (04/13/2018 1:51 AM EDT) RBC, Urine 4(H) 0 - 3 /HPF [facility] WBC, Urine 1 0 - 3 /HPF [facility] Transitional Epithelial Cells, Urine <1 <=1 /HPF [facility] Hyaline Casts, Urine 4(H) 0 - 2 /LPF [facility] Urine specimen obtained by clean catch procedure (specimen) 04/13/2018 1:51 AM EDT 04/13/2018 1:58 AM EDT Narrative Resulting Agency Comment Spec In Lab Rasta Hernández MD URINE ORDERABLES [facility] [place] [address] * (ABNORMAL) Urinalysis with reflex Culture (04/13/2018 1:51 AM EDT) Glucose, Urine Dipstick Negative Negative mg/dL [facility] Protein, [...] [facility] pH, Urn (dipstick) 7.0 5.0 - 8.0 [facility] Blood, Urine Dipstick Negative Negative mg/dL [facility] Ketone, Urine Dipstick Negative Negative mg/dL [facility] Nitrite, Urine Dipstick Negative Negative [facility] Leukocytes, Urine Dipstick Negative Negative [facility] Appearance, Urine Dipstick Clear Clear [facility] Specific [place] Urine Automated 1.017 1.002 - 1.030 [facility] Color, Urine Dipstick Yellow Yellow [facility] Reflex to Culture No [facility] Urine specimen obtained by clean catch procedure (specimen) 04/13/2018 1:51 AM EDT 04/13/2018 1:58 AM EDT Narrative Resulting Agency Comment Spec In Lab Chase Olvera MD URINE ORDERABLES [facility] [place] [address] * MRI Angiogram Neck wo Contrast (04/12/2018 [...] atherosclerosis, NO CONTRAST TECHNIQUE: MRA of the [place] and MRA of the neck were performed without IV contrast, with [id number] technique. ?? COMPARISON: MR head 04/07/2018 FINDINGS: MRA [place]: The intracranial internal carotid arteries, vertebral arteries, basilar artery, superior cerebellar arteries are normal in course and caliber. The bilateral MARCUS, MCA, and [employer]ER are normal in course and caliber. No focal stenosis caliber change or aneurysm.. MRA neck: Jwcr-uw-lfeghl imaging excludes the arch. Vertebral arteries, common carotid arteries, bilateral ECA, ICA are normal in course and caliber. Procedure Note Sabrina Vargas MD - 04/12/2018 EXAMINATION: MRI ANGIOGRAM HEAD WO CONTRAST (GENERIC), MRI ANGIOGRAM NECKWO CONTRAST CLINICAL HISTORY: question intra cranial atherosclerosis, NO CONTRAST TECHNIQUE: MRA of the [place] and MRA of the neck were performed withoutIV contrast, with cqlr-cj-[id number] technique. COMPARISON: MR head 04/07/2018 FINDINGS: MRA [place]: The intracranial internal carotid arteries, vertebral arteries, basilarartery, superior cerebellar arteries are normal in course and caliber. Thebilateral MARCUS, MCA, and SO[employer] PLAYER are normal in course and caliber. No focal stenosiscaliber change or aneurysm.. MRA neck: Hham-lm-wwriog imaging excludes the arch. Vertebral arteries, common [...] atherosclerosis, NO CONTRAST TECHNIQUE: MRA of the [place] and MRA of the neck were performed without IV contrast, with rtex-xs-hybefy technique. ?? COMPARISON: MR head 04/07/2018 FINDINGS: MRA [place]: The intracranial internal carotid arteries, vertebral arteries, basilar artery, superior cerebellar arteries are normal in course and caliber. The bilateral MARCUS, MCA, and SO[place] PLAYER are normal in course and caliber. No focal stenosis caliber change or aneurysm.. MRA neck: Ywgk-so-zpfcra imaging excludes the arch. Vertebral arteries, common carotid arteries, bilateral ECA, ICA are normal in course and caliber. Procedure Note Sabrina Vargas MD - 04/12/2018 EXAMINATION: MRI ANGIOGRAM HEAD WO CONTRAST (GENERIC), MRI ANGIOGRAM NECKWO CONTRAST CLINICAL HISTORY: question intra cranial atherosclerosis, NO CONTRAST TECHNIQUE: MRA of the [place] and MRA of the neck were performed withoutIV contrast, with [id number] technique. COMPARISON: MR head 04/07/2018 FINDINGS: MRA [place]: The intracranial internal carotid arteries, vertebral arteries, basilarartery, superior cerebellar arteries are normal in course and caliber. Thebilateral MARCUS, MCA, and SOCCER PLAYER are normal in course and caliber. No focal stenosiscaliber change or aneurysm.. MRA neck: [id number] imaging excludes the arch. Vertebral arteries, common carotid arteries, bilateral ECA, ICA are normalin course and caliber. IMPRESSION Normal MRA of the head and neck. I have personally reviewed the image(s) and the residents interpretationand agree with the findings, Sabrina Chacko MD at 04/12/2018 5:27 PM 5:27 PM Chase Olvera MD IMG MRI ORDERABLE S * Gold Tube HOLD (04/12/2018 8:40 AM EDT) [facility] Gold Hold Sample in lab. [facility] Blood specimen (specimen) Venous Draw / Unknown 04/12/2018 8:40 AM EDT 04/12/2018 9:16 AM EDT Apple Gutierrez MD CHEMISTRY ORDERABLES [facility] [place] [address] * (ABNORMAL) Differential, Automated (04/12/2018 8:40 AM EDT) [facility] Neutrophil % 65.6 % [facility] Neutrophil Absolute 3.27 1.70 - 6.10 x10(3)/ L [facility] Lymph % 15.6 % [facility] Lymphocytes Abs 0.8(L) 0.9 - 3.2 x10(3)/ L [facility] Monocyte % 11.0 % [facility] Monocyte Abs 0.6 0.3 - 0.9 x10(3)/ L [facility] Eos % 6.6 % [facility] Eosinophils Abs 0.3 0.0 - 0.4 x10(3)/[facility] Basophil % 0.6 % [facility] Baso Absolute 0.0 0.0 - 0.1 x10(3)/[facility] Immature Gran % 0.60 % [facility] Comment: Immature [...] [facility] Blood specimen (specimen) 04/12/2018 8:40 AM EDT 04/12/2018 9:15 AM EDT Narrative Resulting Agency Comment Spec In Lab Apple Gutierrez MD HEMATOLOGY ORDERABLE S [facility] [place] [address] * (ABNORMAL) Hemogram (04/12/2018 8:40 AM EDT) White Blood Cell 5.0 4.0 - 9.5 x10(3)/[facility] Red Blood Cell 2.60(L) 4.58 - 5.54 x10(6)/[facility] Hemoglobin 7.9(L) 13.7 - 16.5 gm/dL [facility] Hematocrit 24.0(L) 40.5 - 48.5 % [facility] Mean Cell Volume 92.3 82.9 - 93.1 fL [facility] Mean Cell Hemoglobin 30.4 27.5 - 32.1 pg [facility] Mean Cell Hemoglobin Concentration 32.9 32.0 - 35.7 gm/dL [facility] Platelet 183 145 - 357 x10(3)/mc L [facility] RDW Standard Deviation 54.2(H) 36.0 - 45.0 fL [facility] RDW coefficient of variation 16.0(H) 11.4 - 13.8 % [facility] Mean Platelet Volume 8.8 7.6 - 12.9 fL [facility] NRBC% auto 0.0 % [facility] NRBC Absolute 0.000 0.000 - 0.000 x10(3)/mc L [facility] Blood specimen (specimen) 04/12/2018 8:40 AM EDT 04/12/2018 9:15 AM EDT Narrative Resulting Agency Comment Spec In Lab Apple Gutierrez MD HEMATOLOGY ORDERABLE S Performing Organization Address City/State/[facility] Co de Phone Number [facility] [place] [address] * APTT (04/12/2018 8:40 AM EDT) Partial Thromboplastin Time 32 25 - 37 sec [facility] Comment: The PTT is NOT appropriate for heparin monitoring. Use the Anti-Xa level for heparin monitoring (HEP UFH) or LMWH monitoring (HEP LMW). A PTT less than 37 seconds generally indicates adequate hemostasis. Blood specimen (specimen) 04/12/2018 8:40 AM EDT 04/12/2018 9:15 AM EDT Narrative Resulting Agency Comment Spec In Lab Chase Olvera MD HEMATOLOGY ORDERA BLES Performing Organization Address [facility] Co de Phone Number [facility] [place] [address] * (ABNORMAL) Prothrombin Time (04/12/2018 8:40 AM EDT) Prothrombin Time 20.0(H) 9.4 - 12.5 sec [facility] International Normalization Ratio 1.8 [facility] Comment: An INR [...] MD HEMATOLOGY ORDERA BLES Performing Organization Address [facility] Co de Phone Number [facility] [place] [address] * (ABNORMAL) Basic Metabolic Panel (non-fasting) (04/12/2018 8:40 AM EDT) Pathologist [facility] Glucose 113 65 - 199 mg/dL [facility] Comment:Diabetes: >=200 mg/d L plus symptoms Blood Urea Nitrogen 31(H) 10 - 20 mg/dL [facility] Creatinine 2.35(H) 0.80 - 1.50 mg/dL [facility] Sodium 140 135 - 145 mmol/L [facility] [...] mmol/L [facility] Carbon Dioxide 20(L) 22 - 31 mmol/L [facility] Anion Gap 14 5 - 15 mmol/L [facility] Calcium 7.4(L) 8.5 - 10.5 mg/dL [facility] Est Glomerular Filtration Rate 30(L) >=60 mL/min/1. 73 m?? [facility] Comment: The eGFR was calculated using the CKD-EPI equation. As with all creatinine based estimates of kidney function, eGFR values calculated with the CKD-EPI equation are not accurate in patients with acute kidney failure, extremes of body mass or the acutely ill. [email or web address]ENEnkf eGFR 35(L) >=60 mL/min/1. 73 m?? [facility] Comment: The eGFR was calculated using the CKD-EPI equation. As with all creatinine based estimates of kidney function, eGFR values calculated with the CKD-EPI equation are not accurate in patients with acute kidney failure, extremes of body mass or the acutely ill. [email or web address] Blood specimen (specimen) 04/12/2018 8:40 AM EDT 04/12/2018 9:15 AM EDT Narrative Resulting Agency Comment Spec In Lab Hay Sparks MD CHEMISTRY ORDERABLES [facility] [place] [address] * ECHO COMPLETE (04/11/2018 2:53 PM EDT) EF 65 HEARTLAB SYSTEM Anatomical Region Laterality Modality Other 04/11/2018 Narrative 04/11/2018 3:21 PM EDT Amended Report Procedure: ?Transthoracic Echocardiogram Patient: ?ARNOL CHRISTY J ? (Age): 1960(57y) Med Rec#: ? [id number] ?Sex: ?M ? [place] Loc: ? [facility] ?Ht / Wt: ??178(cm)/91.6(kg Pt. Loc: ?Adult Floor ? BSA: ?2.1 Study Date: ?? 04/11/2018 ?Pt. Type: Outpatient Tape: ? Referring: Lida Peter Reading: Tim Estrella ([id number]) Vulcanizing Press Operator: Chidi Steve RUST Vulcanizing Press Operator 2: Yimi Norman Diagnosis: *Cerebral infarction [...] ? Mid-Inferior ?Normal ? Mid-Inferoseptal ?Normal ? [place]-Septal ? Normal ? [place]-Anterior ? Normal ? [place]-Lateral ?Normal ? [place]-Inferior ? Normal ? [place]-Tip ?Normal ? This report has been electronically signed by: Tim Estrella M.D. ? 04/11/2018 15:21:34 Images reviewed and interpretation verified [facility] Cardiac Ultrasound Laboratory Procedure Note Tim Estrella MD - 04/11/2018 Amended Report Procedure: Transthoracic Echocardiogram Patient: ARNOL Chacko DOB(Age): 1960(57y) Med Rec#: [id number] Sex: M Site Loc: [facility] Ht / Wt: 178(cm)/91.6(kg Pt. Loc: Adult Floor BSA: 2.1 Study Date: 04/11/2018 Pt. Type: Outpatient Tape: Referring: Lida Peter Reading: Tim Estrella ([id number]) [employer]canizing Press Operator: Chidi Steve RUST Vulcanizing Press Operator 2: Yimi Norman Diagnosis: *Cerebral infarction [...] Normal Mid-Posterolateral Normal Mid-Inferior Normal Mid-Inferoseptal Normal [place]-Septal Normal [place]-Anterior Normal [place]-Lateral Normal [place]-Inferior Normal [place]-Tip Normal This report has been electronically signed by: Tim Estrella M.D. 04/11/2018 15:21:34 Images reviewed and interpretation verified [facility] Cardiac Ultrasound Laboratory Lida Peter MD ECHO ORDERABLES * ABORH Recheck Status (04/11/2018 6:28 AM EDT) ABORH Type Recheck Completed [facility] Blood specimen (specimen) 04/11/2018 6:28 AM EDT 04/11/2018 6:28 AM EDT Narrative Resulting Agency Comment Spec In Lab Hanny Wiseman MD BLOOD BANK LAB ORDER KELLY [facility] [place] [address] * Antibody screen (04/11/2018 6:28 AM EDT) Ab Screen Interp Negative [facility] Expires at [id number] on: 04/14/2018 [facility] Blood specimen (specimen) 04/11/2018 6:28 AM EDT 04/11/2018 6:28 AM EDT Narrative Resulting Agency Comment Spec In Lab Hanny Wiseman MD BLOOD BANK LAB ORDER KELLY [facility] [place] [address] * ABO/Rh Typing (04/11/2018 6:28 AM EDT) ABORH Type A Pos [facility] Blood specimen (specimen) 04/11/2018 6:28 AM EDT 04/11/2018 6:28 AM EDT Narrative Resulting Agency Comment Spec In Lab Hanny Wiseman MD BLOOD BANK LAB ORDER KELLY [facility] [place] [address] * (ABNORMAL) Differential, Automated (04/11/2018 5:55 AM EDT) Neutrophil % 68.9 % [facility] Neutrophil Absolute 3.90 1.70 - 6.10 x10(3)/mc L [facility] Lymph % 14.7 % [facility] Lymphocytes Abs 0.8(L) 0.9 - 3.2 x10(3)/ L [facility] Monocyte % 10.6 % [facility] Monocyte Abs 0.6 0.3 - 0.9 x10(3)/ L [facility] Eos % 4.9 % [facility] Eosinophils Abs 0.3 0.0 - 0.4 x10(3)/ L [facility] Basophil % 0.4 % [facility] Baso Absolute 0.0 0.0 - 0.1 x10(3)/ L [facility] Immature Gran % 0.50 % [facility] Comment: Immature granulocytes(IG's)percentage and absolute count will include metamyelocytes, myelocytes, and promyelocytes. Blood smears from CBCs yielding IG's will be scanned manually for concordance. If this scan disagrees with the automated IG or if promyelocytes are noted, a manual differential will be performed. Immature Gran Absolute 0.03 0.00 - 0.04 x10(3)/mc L [facility] Blood specimen (specimen) 04/11/2018 5:55 AM EDT 04/11/2018 6:03 AM EDT Narrative Resulting Agency Comment Spec In Lab Apple Gutierrez MD HEMATOLOGY ORDERABLE S [facility] [place] [address] * (ABNORMAL) Hemogram (04/11/2018 5:55 AM EDT) [facility] Signature White Blood Cell 5.7 4.0 - 9.5 x10(3)/[facility] Red Blood Cell 2.44(L) 4.58 - 5.54 x10(6)/[facility] Hemoglobin 7.4(L) 13.7 - 16.5 gm/dL [facility] Hematocrit 22.2(L) 40.5 - 48.5 % [facility] Mean Cell Volume 91.0 82.9 - 93.1 fL [facility] Mean Cell Hemoglobin 30.3 27.5 - 32.1 pg [facility] Mean Cell Hemoglobin Concentration 33.3 32.0 - 35.7 gm/dL [facility] Platelet 150 145 - 357 x10(3)/[facility] RDW Standard Deviation 52.6(H) 36.0 - 45.0 [facility] RDW coefficient of variation 15.9(H) 11.4 - 13.8 % [facility] Mean Platelet Volume 9.1 7.6 - 12.9 [facility] NRBC% auto 0.0 % [facility] NRBC Absolute 0.000 0.000 - 0.000 x10(3)/[facility] Blood specimen (specimen) 04/11/2018 5:55 AM EDT 04/11/2018 6:03 AM EDT Narrative Resulting Agency Comment Spec In Lab Apple Gutierrez MD HEMATOLOGY ORDERABLE S [facility] [place] [address] * APTT (04/11/2018 5:55 AM EDT) [facility] Partial Thromboplastin Time 37 25 - 37 sec [facility] Comment: The PTT is NOT appropriate for heparin monitoring. Use the Anti-Xa level for heparin monitoring (HEP UFH) or LMWH monitoring (HEP LMW). A PTT less than 37 seconds generally indicates adequate hemostasis. Blood specimen (specimen) 04/11/2018 5:55 AM EDT 04/11/2018 6:04 AM EDT Narrative Resulting Agency Comment Spec In Lab Chase Olvera MD HEMATOLOGY ORDERA BLES Performing Organization Address [facility] Co de Phone Number [facility] [place] [address] * (ABNORMAL) Prothrombin Time (04/11/2018 5:55 AM EDT) Prothrombin Time 26.8(H) 9.4 - 12.5 sec [facility] International Normalization Ratio 2.4 [facility] Comment: An INR [...] MD HEMATOLOGY ORDERA BLES Performing Organization Address [facility] Co de Phone Number [facility] [place] [address] * (ABNORMAL) Basic Metabolic Panel (non-fasting) (04/11/2018 5:55 AM EDT) Glucose 112 65 - 199 mg/dL [facility] Comment:Diabetes: >=200 mg/d L plus symptoms Blood Urea Nitrogen 33(H) 10 - 20 mg/dL [facility] Creatinine 2.33(H) 0.80 - 1.50 mg/dL [facility] Sodium 144 135 - 145 mmol/L [facility] Potassium 4.5 3.5 - 5.0 mmol/L [facility] Comment: Please note: ??Patients with WBC >100,000 may have falsely elevated Potassium levels. ??For accurate Potassium quantification in these patients send serum separator tube (gold top) for subsequent determinations. ??Contact the Clinical Chemistry Laboratory if there are any questions. Chloride 110(H) 98 - 107 mmol/L [facility] Carbon Dioxide 22 22 - 31 mmol/L [facility] Anion Gap 12 5 - 15 mmol/L [facility] Calcium 7.3(L) 8.5 - 10.5 mg/dL [facility] Est Glomerular Filtration Rate 30(L) >=60 mL/min/1. 73 m?? [facility] Comment: The eGFR was calculated using the CKD-EPI equation. As with all creatinine based estimates of kidney function, eGFR values calculated with the CKD-EPI equation are not accurate in patients with acute kidney failure, extremes of body mass or the acutely ill. [email or web address]ENEnkf eGFR 35(L) >=60 mL/min/1. 73 m?? [facility] Comment: The eGFR was calculated using the CKD-EPI equation. As with all creatinine based estimates of kidney function, eGFR values calculated with the CKD-EPI equation are not accurate in patients with acute kidney failure, extremes of body mass or the acutely ill. [email or web address] Blood specimen (specimen) 04/11/2018 5:55 AM EDT 04/11/2018 6:04 AM EDT Narrative Resulting Agency Comment Spec In Lab Hay Sparks MD CHEMISTRY ORDERABLES [facility] [place] [address] * POCT Glucose (04/10/2018 7:56 AM EDT) Glucose, POC 119 65 - 199 mg/dL [facility] Comment: Supplemental ranges: <140 mg/dL before meals <180 mg/dL all other times of the day Blood specimen (specimen) 04/10/2018 7:56 AM EDT 04/10/2018 7:56 AM EDT Chase Olvera MD POINT OF CARE SHAZIA T ORDERABLES [facility] [place] [address] * (ABNORMAL) Differential, Automated (04/10/2018 5:35 AM EDT) Neutrophil % 72.4 % [facility] Neutrophil Absolute 4.21 1.70 - 6.10 x10(3)/mc L [facility] Lymph % 12.7 % [facility] Lymphocytes Abs 0.7(L) 0.9 - 3.2 x10(3)/mc L [facility] Monocyte % 9.1 % [facility] Monocyte Abs 0.5 0.3 - 0.9 x10(3)/mc L [facility] Eos % 5.0 % [facility] Eosinophils Abs 0.3 0.0 - 0.4 x10(3)/mc L [facility] Basophil % 0.3 % [facility] Baso Absolute 0.0 0.0 - 0.1 x10(3)/mc L [facility] Immature Gran % 0.50 % [facility] Comment: Immature granulocytes(IG's)percentage and absolute count will include metamyelocytes, myelocytes, and promyelocytes. Blood smears from CBCs yielding IG's will be scanned manually for concordance. If this scan disagrees with the automated IG or if promyelocytes are noted, a manual differential will be performed. Immature Gran Absolute 0.03 0.00 - 0.04 x10(3)/mc L [facility] Blood specimen (specimen) 04/10/2018 5:35 AM EDT 04/10/2018 6:09 AM EDT Narrative Resulting Agency Comment Spec In Lab Apple Gutierrez MD HEMATOLOGY ORDERABLE S [facility] [place] [address] * (ABNORMAL) Hemogram (04/10/2018 5:35 AM EDT) White Blood Cell 5.8 4.0 - 9.5 x10(3)/mc L [facility] Red Blood Cell 2.44(L) 4.58 - 5.54 x10(6)/mc L [facility] Hemoglobin 7.3(L) 13.7 - 16.5 gm/dL [facility] Hematocrit 22.0(L) 40.5 - 48.5 % [facility] Mean Cell Volume 90.2 82.9 - 93.1 [facility] Mean Cell Hemoglobin 29.9 27.5 - 32.1 pg [facility] Mean Cell Hemoglobin Concentration 33.2 32.0 - 35.7 gm/dL [facility] Platelet 105(L) 145 - 357 x10(3)/mc L [facility] RDW Standard Deviation 52.6(H) 36.0 - 45.0 [facility] RDW coefficient of variation 15.9(H) 11.4 - 13.8 % [facility] Mean Platelet Volume 9.6 7.6 - 12.9 [facility] NRBC% auto 0.0 % [facility] NRBC Absolute 0.000 0.000 - 0.000 x10(3)/ L [facility] Blood specimen (specimen) 04/10/2018 5:35 AM EDT 04/10/2018 6:09 AM EDT Narrative Resulting Agency Comment Spec In Lab Apple Gutierrez MD HEMATOLOGY ORDERABLE S [facility] [place] [address] * APTT (04/10/2018 5:35 AM EDT) Partial Thromboplastin Time 36 25 - 37 sec [facility] Comment: The PTT is [...] ORDERA BLES Performing Organization Address [facility] Co de Phone Number [facility] [place] [address] * (ABNORMAL) Prothrombin Time (04/10/2018 5:35 AM EDT) Prothrombin Time 28.7(H) 9.4 - 12.5 sec [facility] International Normalization Ratio 2.6 [facility] Comment: An INR [...] MD HEMATOLOGY ORDERA BLES Performing Organization Address [facility] Co de Phone Number [facility] [place] [address] * (ABNORMAL) Basic Metabolic Panel (non-fasting) (04/10/2018 5:35 AM EDT) Glucose 112 65 - 199 mg/dL [facility] Comment:Diabetes: >=200 mg/d L plus symptoms Blood Urea Nitrogen 33(H) 10 - 20 mg/dL [facility] Creatinine 2.59(H) 0.80 - 1.50 mg/dL [facility] Sodium 144 135 - 145 mmol/L [facility] Potassium 4.3 3.5 - 5.0 mmol/L [facility] Comment: Please note: ??Patients with WBC >100,000 may have falsely elevated Potassium levels. ??For accurate Potassium quantification in these patients send serum separator tube (gold top) for subsequent determinations. ??Contact the Clinical Chemistry Laboratory if there are any questions. Chloride 109(H) 98 - 107 mmol/L [facility] Carbon Dioxide 23 22 - 31 mmol/L [facility] Anion Gap 12 5 - 15 mmol/L [facility] Calcium 7.9(L) 8.5 - 10.5 mg/dL [facility] Est Glomerular Filtration Rate 27(L) >=60 mL/min/1. 73 m?? [facility] Comment: The eGFR was calculated using the CKD-EPI equation. As with all creatinine based estimates of kidney function, eGFR values calculated with the CKD-EPI equation are not accurate in patients with acute kidney failure, extremes of body mass or the acutely ill. [email or web address]ENEnkf eGFR 31(L) >=60 mL/min/1. 73 m?? [facility] Comment: The eGFR was calculated using the CKD-EPI equation. As with all creatinine based estimates of kidney function, eGFR values calculated with the CKD-EPI equation are not accurate in patients with acute kidney failure, extremes of body mass or the acutely ill. [email or web address]EN[facility]kf Blood specimen (specimen) 04/10/2018 5:35 AM EDT 04/10/2018 6:09 AM EDT Narrative Resulting Agency Comment Spec In Lab Hay Sparks MD CHEMISTRY ORDERABLES [facility] [place] [address] * POCT Glucose (04/09/2018 8:26 PM EDT) Glucose, POC 137 65 - 199 mg/dL [facility] Comment: Supplemental ranges: <140 mg/dL before meals <180 mg/dL all other times of the day Blood specimen (specimen) 04/09/2018 8:26 PM EDT 04/09/2018 8:26 PM EDT Chase Olvera MD POINT OF CARE SHAZIA T ORDERABLES Performing Organization Address [facility] Co de Phone Number [facility] [place] [address] * APTT (04/09/2018 8:25 PM EDT) Partial Thromboplastin Time 37 25 - 37 sec [facility] Comment: The PTT is NOT appropriate for heparin monitoring. Use the Anti-Xa level for heparin monitoring (HEP UFH) or LMWH monitoring (HEP LMW). A PTT less than 37 seconds generally indicates adequate hemostasis. Blood specimen (specimen) 04/09/2018 8:25 PM EDT 04/09/2018 8:30 PM EDT Narrative Resulting Agency Comment Spec In Lab Lida Peter MD HEMATOLOGY ORDERABLE S Performing Organization Address [facility] Co de Phone Number [facility] [place] [address] * (ABNORMAL) Prothrombin Time (04/09/2018 8:25 PM EDT) Prothrombin Time 30.4(H) 9.4 - 12.5 sec [facility] International Normalization Ratio 2.7 [facility] Comment: An INR [...] MD HEMATOLOGY ORDERABLE S Performing Organization Address [facility] de Phone Number [facility] [place] [address] * Transfuse thawed plasma (04/09/2018 6:04 PM EDT) Lida Peter MD NURSING TREATMENT OR DERABLES - BLOOD ADMIN * Transfuse thawed plasma (04/09/2018 4:29 PM EDT) Lida Peter MD NURSING TREATMENT OR DERABLES - BLOOD ADMIN * Transfuse thawed plasma (04/09/2018 1:52 PM EDT) Chase Olvera MD NURSING TREATMENT ORDERABLES - BLOOD ADMIN * Prepare thawed plasma (04/09/2018 11:05 AM EDT) Dispensed? Yes [facility] Blood specimen (specimen) 04/09/2018 11:05 AM EDT 04/09/2018 11:07 AM EDT Lida Peter MD BLOOD BANK PRODUCT O RDERABLES Performing Organization Address [facility] Co de Phone Number [facility] [place] [address] * (ABNORMAL) APTT (04/09/2018 10:03 AM EDT) Partial Thromboplastin Time 39(H) 25 - 37 sec [facility] Comment: The PTT is NOT appropriate for heparin monitoring. Use the Anti-Xa level for heparin monitoring (HEP UFH) or LMWH monitoring (HEP LMW). A PTT less than 37 seconds generally indicates adequate hemostasis. Blood specimen (specimen) 04/09/2018 10:03 AM EDT 04/09/2018 10:13 AM EDT Narrative Resulting Agency Comment Spec In Lab Lida Peter MD HEMATOLOGY ORDERABLE S [facility] [place] [address] * (ABNORMAL) Prothrombin Time (04/09/2018 10:03 AM EDT) Prothrombin Time 47.7(H) 9.4 - 12.5 sec [facility] International Normalization Ratio 4.2 [facility] Comment: An INR [...] Lab Lida Peter MD HEMATOLOGY ORDERABLE S [facility] [place] [address] * Differential, Automated (04/09/2018 3:05 AM EDT) Neutrophil % 74.9 % [facility] Neutrophil Absolute 6.08 1.70 - 6.10 x10(3)/[facility] LABORATORY Lymph % 12.2 % [facility] LABORATORY Lymphocytes Abs 1.0 0.9 - 3.2 x10(3)/[facility] LABORATORY Monocyte % 8.7 % [facility] LABORATORY Monocyte Abs 0.7 0.3 - 0.9 x10(3)/[facility] LABORATORY Eos % 3.2 % [facility] LABORATORY Eosinophils Abs 0.3 0.0 - 0.4 x10(3)/[facility] LABORATORY Basophil % 0.5 % [facility] LABORATORY Baso Absolute 0.0 0.0 - 0.1 x10(3)/[facility] LABORATORY Immature Gran % 0.50 % [facility] Comment: Immature granulocytes(IG's)percentage and absolute count will include metamyelocytes, myelocytes, and promyelocytes. Blood smears from CBCs yielding IG's will be scanned manually for concordance. If this scan disagrees with the automated IG or if promyelocytes are noted, a manual differential will be performed. Immature Gran Absolute 0.04 0.00 - 0.04 x10(3)/[facility] LABORATORY Blood specimen (specimen) 04/09/2018 3:05 AM EDT 04/09/2018 3:13 AM EDT Narrative Resulting Agency Comment Spec In Lab Apple Gutierrez MD HEMATOLOGY ORDERABLE S Performing Organization Address City/State/[facility] Co de Phone Number [facility] [place] [address] * (ABNORMAL) Hemogram (04/09/2018 3:05 AM EDT) White Blood Cell 8.1 4.0 - 9.5 x10(3)/[facility] LABORATORY Red Blood Cell 2.55(L) 4.58 - 5.54 x10(6)/[facility] LABORATORY Hemoglobin 7.8(L) 13.7 - 16.5 gm/dL [facility] Hematocrit 22.8(L) 40.5 - 48.5 % [facility] Mean Cell Volume 89.4 82.9 - 93.1 fL [facility] Mean Cell Hemoglobin 30.6 27.5 - 32.1 pg [facility] Mean Cell Hemoglobin Concentration 34.2 32.0 - 35.7 gm/dL [facility] Platelet 100(L) 145 - 357 x10(3)/[facility] LABORATORY RDW Standard Deviation 53.7(H) 36.0 - 45.0 fL [facility] RDW coefficient of variation 16.6(H) 11.4 - 13.8 % [facility] Mean Platelet Volume 8.9 7.6 - 12.9 fL [facility] NRBC% auto 0.0 % [facility] NRBC Absolute 0.000 0.000 - 0.000 x10(3)/mc L [facility] Blood specimen (specimen) 04/09/2018 3:05 AM EDT 04/09/2018 3:13 AM EDT Narrative Resulting Agency Comment Spec In Lab Apple Gutierrez MD HEMATOLOGY ORDERABLE S [facility] [place] [address] * (ABNORMAL) Basic Metabolic Panel (non-fasting) (04/09/2018 3:05 AM EDT) Glucose 122 65 - 199 mg/dL [facility] Comment:Diabetes: >=200 mg/d L plus symptoms Blood Urea Nitrogen 44(H) 10 - 20 mg/dL [facility] Creatinine 3.00(H) 0.80 - 1.50 mg/dL [facility] Sodium 146(H) 135 - 145 mmol/L [facility] Potassium 4.9 3.5 - 5.0 mmol/L [facility] Comment: Please note: ??Patients with WBC >100,000 may have falsely elevated Potassium levels. ??For accurate Potassium quantification in these patients send serum separator tube (gold top) for subsequent determinations. ??Contact the Clinical Chemistry Laboratory if there are any questions. Chloride 110(H) 98 - 107 mmol/L [facility] Carbon Dioxide 21(L) 22 - 31 mmol/L [facility] Anion Gap 15 5 - 15 mmol/L [facility] Calcium 7.7(L) 8.5 - 10.5 mg/dL [facility] Est Glomerular Filtration Rate 22(L) >=60 mL/min/1. 73 m?? [facility] Comment: The eGFR was calculated using the CKD-EPI equation. As with all creatinine based estimates of kidney function, eGFR values calculated with the CKD-EPI equation are not accurate in patients with acute kidney failure, extremes of body mass or the acutely ill. [email or web address] eGFR 26(L) >=60 mL/min/1. 73 m?? [facility] Comment: The eGFR was calculated using the CKD-EPI equation. As with all creatinine based estimates of kidney function, eGFR values calculated with the CKD-EPI equation are not accurate in patients with acute kidney failure, extremes of body mass or the acutely ill. [email or web address] Blood specimen (specimen) 04/09/2018 3:05 AM EDT 04/09/2018 3:13 AM EDT Narrative Resulting Agency Comment Spec In Lab Hay Sparks MD CHEMISTRY ORDERABLES Performing Organization Address [facility]/ZIP Co de Phone Number [facility] [place] [address] * Lavender Tube HOLD (04/08/2018 8:10 PM EDT) Pathologist [facility] Lavender Hold Sample in lab. [facility] Blood specimen (specimen) Venous Draw / Unknown 04/08/2018 8:10 PM EDT 04/08/2018 8:26 PM EDT John Rose MD HEMATOLOGY ORDERABLE S Performing Organization Address [facility]/ZIP Co de Phone Number [facility] [place] [address] * (ABNORMAL) Phenytoin level, total and free (04/08/2018 8:10 PM EDT) Pathologist [facility] Phenytoin 7.3(L) 10.0 - 20.0 mg/L [facility] Comment: Theraputic range: ??10-20 mg/L Toxic: ??> 25 mg/L Patients with renal dysfunction (e.g.creatinine clearance < 30 mls/min) may show falsely elevated results due to accumulation of metabolites in renal failure Phenytoin, Free 0.95(L) 1.00 - 2.00 mg/L [facility] Comment: Therapeutic range: ? Free phenytoin: ??1.00-2.00 mg/L ? % Free phenytoin: ??8-12% Toxic range: ? Free phenytoin: ??>3.00 mg/L This test was developed and its performance characteristics determined by [facility]. It has not been cleared or approved by the FDA. The laboratory is regulated under CLIA as qualified to perform high-complexity testing. This test is used for clinical purposes. It should not be regarded as investigational or for research. Phenyt Free % 13(H) 8 - 12 % [facility] Comment: This test was developed and its performance characteristics determined by [facility]. It has not been cleared [...] Peter MD CHEMISTRY ORDERABLES Performing Organization Address City/State/[facility] Co de Phone Number [facility] [place] [address] * Transfuse RBC (04/08/2018 4:59 PM EDT) Lida Peter MD NURSING TREATMENT OR DERABLES - BLOOD ADMIN * Transfuse RBC (04/08/2018 4:59 PM EDT) Lida Peter MD NURSING TREATMENT OR DERABLES - BLOOD ADMIN * EEG awake, asleep, drowsy, routine (04/08/2018 3:45 PM EDT) Narrative Beth Colunga - 04/08/2018 3:45 PM EDT Beth Colunga ? 04/08/2018 ??3:45 PM [facility] Department of Neurology In [...] channel digitized electroencephalogram was performed in the [facility] Clinical Neurophysiology Laboratory. The 10/20 international system of electrode placement was used and bipolar and referential electrode montages were recorded. ??In addition to EEG the patient was monitored for EKG and lateral/vertical eye movements. Video was recorded during the session. The duration of the recording was 30 minutes. PITCH FLAKER'S REPORT: Performed by: AT Patient was not sleep deprived. Sleep was not attained. Photic stimulation was performed. Hyperventilation was not performed. Effort was was not adequate. Movement and other artifact was not significant. Comments: none Lida Peter MD NEUROLOGY ORDERABLES * Carotid Duplex, Bilateral (04/08/2018 2:49 PM EDT) VB Text Report Department: Vascular Surgery Lab Patient: [id number] (CHRISTY AMBROSE) CPT: 91034 ICD10: I63.9 Referring Physician: LIDA PETER ?? [...] Peter MD VASCULAR ORDERABLES Performing Organization Address City/[facility]/ZIP Co de Phone Number [facility] * (ABNORMAL) Levetiracetam level (04/08/2018 1:55 PM EDT) Levetiracetam Lvl (NOVEMBER) 47.4(H) 12.0 - 46.0 mcg/mL [facility] Comment: ADDITIONAL INFORMATION This test was developed and its performance characteristics determined by [facility] in a manner consistent with CLIA requirements. This test has not been cleared or approved by the U.S. Food and Drug Administration. Test Performed by: [facility] [address] [place] [address] Blood specimen (specimen) 04/08/2018 1:55 PM EDT 04/08/2018 3:54 PM EDT Narrative Resulting Agency Comment Spec In Lab Lida Peter MD LAB SEND OUT ORDERAB LES Performing Organization Address [facility] Co de Phone Number [facility] [place] [address] * Prepare RBC (04/08/2018 11:15 AM EDT) Dispensed? No [facility] Blood specimen (specimen) 04/08/2018 11:15 AM EDT 04/08/2018 11:11 AM EDT Lida Peter MD BLOOD BANK PRODUCT O RDERABLES Performing Organization Address City/[facility]/ZIP Co de Phone Number [facility] [place] [address] * Prepare RBC (04/08/2018 11:15 AM EDT) Dispensed? Yes [facility] Blood specimen (specimen) 04/08/2018 11:15 AM EDT 04/08/2018 11:11 AM EDT Lida Peter MD BLOOD BANK PRODUCT O RDERABLES Performing Organization Address [facility] de Phone Number [facility] [place] [address] * (ABNORMAL) APTT (04/08/2018 10:45 AM EDT) Partial Thromboplastin Time 38(H) 25 - 37 sec [facility] Comment: The PTT is NOT appropriate for heparin monitoring. Use the Anti-Xa level for heparin monitoring (HEP UFH) or LMWH monitoring (HEP LMW). A PTT less than 37 seconds generally indicates adequate hemostasis. Blood specimen (specimen) 04/08/2018 10:45 AM EDT 04/08/2018 10:55 AM EDT Narrative Resulting Agency Comment Spec In Lab Lida Peter MD HEMATOLOGY ORDERABLE S Performing Organization Address [facility] Phone Number [facility] [place] [address] * (ABNORMAL) Prothrombin Time (04/08/2018 10:45 AM EDT) Prothrombin Time 51.2(H) 9.4 - 12.5 sec [facility] International Normalization Ratio 4.5 [facility] Comment: An INR [...] MD HEMATOLOGY ORDERABLE S Performing Organization Address [facility] Co de Phone Number [facility] [place] [address] * (ABNORMAL) CK (04/08/2018 10:45 AM EDT) Creatine Kinase 646(H) 0 - 200 unit/L [facility] Blood specimen (specimen) 04/08/2018 10:45 AM EDT 04/08/2018 10:55 AM EDT Narrative Resulting Agency Comment Spec In Lab Lida Peter MD CHEMISTRY ORDERABLES Performing Organization Address [facility] Co de Phone Number [facility] [place] [address] * (ABNORMAL) Hemoglobin and Hematocrit, blood (04/08/2018 10:45 AM EDT) Hemoglobin 7.2(L) 13.7 - 16.5 gm/dL [facility] Hematocrit 21.3(L) 40.5 - 48.5 % [facility] Blood specimen (specimen) 04/08/2018 10:45 AM EDT 04/08/2018 10:55 AM EDT Narrative Resulting Agency Comment Spec In Lab Lida Peter MD HEMATOLOGY ORDERABLE S Performing Organization Address [facility] Co de Phone Number [facility] [place] [address] * Tacrolimus level (04/08/2018 8:30 AM EDT) Tacrolimus 2.1 ng/mL [facility] Comment: Trough therapeutic: ??5-15 ng/mL Performed by ultra-performance liquid chromatography tandem mass spectrometry (UPLCMS/MS). This test was developed and its performance characteristics determined by [facility]. It has not been cleared [...] Peter MD CHEMISTRY ORDERABLES Performing Organization Address [facility] Co de Phone Number [facility] [place] [address] * Prepare RBC (04/08/2018 4:55 AM EDT) Pathologist [facility] Dispensed? Yes [facility] Blood specimen (specimen) 04/08/2018 4:55 AM EDT 04/08/2018 4:59 AM EDT Lida Peter MD BLOOD BANK PRODUCT O RDERABLES Performing Organization Address [facility] Co de Phone Number [facility] [place] [address] * Blue Tube HOLD (04/08/2018 4:05 AM EDT) [facility] Blue Hold Sample in lab. [facility] Blood specimen (specimen) Venous Draw / Unknown 04/08/2018 4:05 AM EDT 04/08/2018 4:21 AM EDT Apple Gutierrez MD HEMATOLOGY ORDERABLE S Performing Organization Address [facility] Co de Phone Number [facility] [place] [address] * (ABNORMAL) Differential, Automated (04/08/2018 4:05 AM EDT) Pathologist [facility] Neutrophil % 81.8 % [facility] Neutrophil Absolute 7.13(H) 1.70 - 6.10 x10(3)/mc L [facility] Lymph % 8.0 % [facility] Lymphocytes Abs 0.7(L) 0.9 - 3.2 x10(3)/[facility] LABORATORY Monocyte % 7.9 % [facility] Monocyte Abs 0.7 0.3 - 0.9 x10(3)/[facility] LABORATORY Eos % 1.8 % [facility] Eosinophils Abs 0.2 0.0 - 0.4 x10(3)/[facility] LABORATORY Basophil % 0.2 % [facility] Baso Absolute 0.0 0.0 - 0.1 x10(3)/[facility] LABORATORY Immature Gran % 0.30 % [facility] Comment: Immature [...] [facility]ORATORY Blood specimen (specimen) 04/08/2018 4:05 AM EDT 04/08/2018 4:21 AM EDT Narrative Resulting Agency Comment Spec In Lab Apple Gutierrez MD HEMATOLOGY ORDERABLE S [facility] [place] [address] * (ABNORMAL) Hemogram (04/08/2018 4:05 AM EDT) White Blood Cell 8.7 4.0 - 9.5 x10(3)/[facility] LABORATORY Red Blood Cell 2.26(L) 4.58 - 5.54 x10(6)/[facility] LABORATORY Hemoglobin 6.8(L) 13.7 - 16.5 gm/dL [facility] Hematocrit 20.4(L) 40.5 - 48.5 % [facility] Mean Cell Volume 90.3 82.9 - 93.1 fL [facility] Mean Cell Hemoglobin 30.1 27.5 - 32.1 pg [facility] Mean Cell Hemoglobin Concentration 33.3 32.0 - 35.7 gm/dL [facility] Platelet 94(L) 145 - 357 x10(3)/mc L [facility] RDW Standard Deviation 57.9(H) 36.0 - 45.0 fL [facility] RDW coefficient of variation 17.7(H) 11.4 - 13.8 % [facility] Mean Platelet Volume 9.7 7.6 - 12.9 fL [facility] NRBC% auto 0.0 % [facility] NRBC Absolute 0.000 0.000 - 0.000 x10(3)/mc L [facility] Blood specimen (specimen) 04/08/2018 4:05 AM EDT 04/08/2018 4:21 AM EDT Narrative Resulting Agency Comment Spec In Lab Apple Gutierrez MD HEMATOLOGY ORDERABLE S [facility] [place] [address] * (ABNORMAL) Basic Metabolic Panel (non-fasting) (04/08/2018 4:05 AM EDT) Glucose 120 65 - 199 mg/dL [facility] Comment:Diabetes: >=200 mg/d L plus symptoms Blood Urea Nitrogen 47(H) 10 - 20 mg/dL [facility] Creatinine 2.93(H) 0.80 - 1.50 mg/dL [facility] Sodium 144 135 - 145 mmol/L [facility] Potassium 5.4(H) 3.5 - 5.0 mmol/L [facility] Comment: Please note: ??Patients with WBC >100,000 may have falsely elevated Potassium levels. ??For accurate Potassium quantification in these patients send serum separator tube (gold top) for subsequent determinations. ??Contact the Clinical Chemistry Laboratory if there are any questions. Chloride 115(H) 98 - 107 mmol/L [facility] Carbon Dioxide 16(L) 22 - 31 mmol/L [facility] Anion Gap 13 5 - 15 mmol/L [facility] Calcium 7.1(L) 8.5 - 10.5 mg/dL [facility] Comment:result rechecked-KS Est Glomerular Filtration Rate 23(L) >=60 mL/min/1. 73 m?? [facility] Comment: The eGFR was calculated using the CKD-EPI equation. As with all creatinine based estimates of kidney function, eGFR values calculated with the CKD-EPI equation are not accurate in patients with acute kidney failure, extremes of body mass or the acutely ill. [email or web address]ENEnkf eGFR 26(L) >=60 mL/min/1. 73 m?? [facility] Comment: The eGFR was calculated using the CKD-EPI equation. As with all creatinine based estimates of kidney function, eGFR values calculated with the CKD-EPI equation are not accurate in patients with acute kidney failure, extremes of body mass or the acutely ill. [email or web address]kf Blood specimen (specimen) 04/08/2018 4:05 AM EDT 04/08/2018 4:21 AM EDT Narrative Resulting Agency Comment Spec In Lab Hay Sparks MD CHEMISTRY ORDERABLES [facility] [place] [address] * MRI Brain wo Contrast (04/07/2018 9:11 [...] thoracic and lumbar spine were performed at [facility] on 04/06/2018. COMPARISON: CT chest [...] thoracic and lumbar spine were performed at [facility] on 04/06/2018. COMPARISON: CT chest [...] * POCT Glucose (04/07/2018 5:56 AM EDT) [facility] Glucose, POC 136 65 - 199 mg/dL [facility] Comment: Supplemental ranges: <140 mg/dL before meals <180 mg/dL all other times of the day Blood specimen (specimen) 04/07/2018 5:56 AM EDT 04/07/2018 5:56 AM EDT Lida Peter MD POINT OF CARE TEST O RDERABLES [facility] [place] [address] * (ABNORMAL) Cardiac Enzymes (LEB/CGP) (04/07/2018 5:55 AM EDT) [facility] Troponin-T 0.15(H) 0.00 - 0.00 ng/mL [facility] Comment: The 99th percentile for Troponin T is less than 0.01 ng/mL, any detectable cTnT concentration using this assay should be considered elevated. According to the third universal definition of myocardial infarction the following criteria with a clinical presentation consistent with acute myocardial ischemia meets the diagnosis for a myocardial infarction ([place]). Detection of a rise and/or fall of cTnT, with at least one value greater than the 99th percentile (> or = 0.01) and with at least one of the following ?? Symptoms of ischemia ?? New or presumed new significant OF-soqgbrs-G wave (ST-T) changes or new left bundle [...] additional sample may be indicated. Reference: Third Wickes Definition of Myocardial Infarction. Journal of the [employer] College [employer] Cardiology 2012;60:1581-98 Creatine Kinase 700(H) 0 - 200 unit/L [facility] Blood specimen (specimen) 04/07/2018 5:55 AM EDT 04/07/2018 6:34 AM EDT Narrative Resulting Agency Comment Spec In Lab Lida Peter MD CHEMISTRY ORDERABLES Performing Organization Address [facility] Co de Phone Number [facility] [place] [address] * (ABNORMAL) CK (04/07/2018 5:55 AM EDT) Creatine Kinase 699(H) 0 - 200 unit/L [facility] Blood specimen (specimen) 04/07/2018 5:55 AM EDT 04/07/2018 6:03 AM EDT Narrative Resulting Agency Comment Spec In Lab Lida Peter MD CHEMISTRY ORDERABLES Performing Organization Address [facility] Co de Phone Number [facility] [place] [address] * (ABNORMAL) Hemoglobin and Hematocrit, blood (04/07/2018 5:55 AM EDT) Hemoglobin 7.2(L) 13.7 - 16.5 gm/dL [facility] Hematocrit 21.2(L) 40.5 - 48.5 % [facility] Blood specimen (specimen) 04/07/2018 5:55 AM EDT 04/07/2018 6:03 AM EDT Narrative Resulting Agency Comment Spec In Lab Lida Peter MD HEMATOLOGY ORDERABLE S Performing Organization Address City/[facility]/ZIP Co de Phone Number [facility] [place] [address] * Lactate, whole blood, send to lab (Leb/CGP) (04/07/2018 5:55 AM EDT) Lactate WB 1.2 0.5 - 2.2 mmol/L [facility] Blood specimen (specimen) 04/07/2018 5:55 AM EDT 04/07/2018 6:03 AM EDT Narrative Resulting Agency Comment Spec In Lab Lida Peter MD CHEMISTRY ORDERABLES [facility] [place] [address] * (ABNORMAL) Basic Metabolic Panel (non-fasting) (04/07/2018 4:30 AM EDT) Pathologist [facility] Glucose 124 65 - 199 mg/dL [facility] Comment:Diabetes: >=200 mg/d L plus symptoms Blood Urea Nitrogen 50(H) 10 - 20 mg/dL [facility] Creatinine 2.68(H) 0.80 - 1.50 mg/dL [facility] Sodium 143 135 - 145 mmol/L [facility] Potassium 5.4(H) 3.5 - 5.0 mmol/L [facility] Comment: Please note: ??Patients with WBC >100,000 may have falsely elevated Potassium levels. ??For accurate Potassium quantification in these patients send serum separator tube (gold top) for subsequent determinations. ??Contact the Clinical Chemistry Laboratory if there are any questions. Chloride 116(H) 98 - 107 mmol/L [facility] Carbon Dioxide 16(L) 22 - 31 mmol/L [facility] Anion Gap 11 5 - 15 mmol/L [facility] Calcium 7.0(L) 8.5 - 10.5 mg/dL [facility] Est Glomerular Filtration Rate 25(L) >=60 mL/min/1. 73 m?? [facility] Comment: The eGFR was calculated using the CKD-EPI equation. As with all creatinine based estimates of kidney function, eGFR values calculated with the CKD-EPI equation are not accurate in patients with acute kidney failure, extremes of body mass or the acutely ill. [email or web address]ENEnkf eGFR 29(L) >=60 mL/min/1. 73 m?? [facility] Comment: The eGFR was calculated using the CKD-EPI equation. As with all creatinine based estimates of kidney function, eGFR values calculated with the CKD-EPI equation are not accurate in patients with acute kidney failure, extremes of body mass or the acutely ill. [email or web address]EN[facility]kf Blood specimen (specimen) 04/07/2018 4:30 AM EDT 04/07/2018 4:34 AM EDT Narrative Resulting Agency Comment Spec In Lab Lida Peter MD CHEMISTRY ORDERABLES Performing Organization Address [facility] Co de Phone Number [facility] [place] [address] * POCT Glucose (04/07/2018 3:35 AM EDT) Glucose, POC 131 65 - 199 mg/dL [facility] Comment: Supplemental ranges: <140 mg/dL before meals <180 mg/dL all other times of the day Blood specimen (specimen) 04/07/2018 3:35 AM EDT 04/07/2018 3:35 AM EDT Lida Peter MD POINT OF CARE TEST O RDERABLES Performing Organization Address [facility]/ZIP Co de Phone Number [facility] [place] [address] * Lactate, whole blood, send to lab (Leb/CGP) (04/07/2018 12:15 AM EDT) Lactate WB 1.5 0.5 - 2.2 mmol/L [facility] Blood specimen (specimen) 04/07/2018 12:15 AM EDT 04/07/2018 12:21 AM EDT Narrative Resulting Agency Comment Spec In Lab Lida Peter MD CHEMISTRY ORDERABLES Performing Organization Address [facility] [facility] Co de Phone Number [facility] [place] [address] * (ABNORMAL) CK (04/07/2018 12:15 AM EDT) Creatine Kinase 608(H) 0 - 200 unit/L [facility] Comment:result rechecked-RR Blood specimen (specimen) 04/07/2018 12:15 AM EDT 04/07/2018 12:21 AM EDT Narrative Resulting Agency Comment Spec In Lab Lida Peter MD CHEMISTRY ORDERABLES Performing Organization Address [facility] Co de Phone Number [facility] [place] [address] * (ABNORMAL) Hemoglobin and Hematocrit, blood (04/07/2018 12:15 AM EDT) Hemoglobin 7.9(L) 13.7 - 16.5 gm/dL [facility] Hematocrit 23.1(L) 40.5 - 48.5 % [facility] Blood specimen (specimen) 04/07/2018 12:15 AM EDT 04/07/2018 12:21 AM EDT Narrative Resulting Agency Comment Spec In Lab Lida Peter MD HEMATOLOGY ORDERABLE S Performing Organization Address [facility] Co de Phone Number [facility] [place] [address] * (ABNORMAL) Basic Metabolic Panel (non-fasting) (04/07/2018 12:15 AM EDT) Glucose 167 65 - 199 mg/dL [facility] Comment:Diabetes: >=200 mg/d L plus symptoms Blood Urea Nitrogen 48(H) 10 - 20 mg/dL [facility] Creatinine 2.58(H) 0.80 - 1.50 mg/dL [facility] Sodium 143 135 - 145 mmol/L [facility] Potassium 6.1(Criti constance) 3.5 - 5.0 mmol/L [facility] Comment: Called by: RUPINDER, Read back by: EVELIN CALLEJAS, Date/Time:04/07/18 01:06. Please note: ??Patients with WBC >100,000 may have falsely elevated Potassium levels. ??For accurate Potassium quantification in these patients send serum separator tube (gold top) for subsequent determinations. ??Contact the Clinical Chemistry Laboratory if there are any questions. Chloride 117(H) 98 - 107 mmol/L [facility] Carbon Dioxide 15(L) 22 - 31 mmol/L [facility] Anion Gap 11 5 - 15 mmol/L [facility] Calcium 6.8(Criti constance) 8.5 - 10.5 mg/dL [facility] Comment:Called by: RUPINDER, Read back by: EVELIN CALLEJAS, Date/Time:04/07/18 01:06. Est Glomerular Filtration Rate 27(L) >=60 mL/min/1. 73 m?? [facility] Comment: The eGFR was calculated using the CKD-EPI equation. As with all creatinine based estimates of kidney function, eGFR values calculated with the CKD-EPI equation are not accurate in patients with acute kidney failure, extremes of body mass or the acutely ill. [email or web address] eGFR 31(L) >=60 mL/min/1. 73 m?? [facility] Comment: The eGFR was calculated using the CKD-EPI equation. As with all creatinine based estimates of kidney function, eGFR values calculated with the CKD-EPI equation are not accurate in patients with acute kidney failure, extremes of body mass or the acutely ill. [email or web address] Blood specimen (specimen) 04/07/2018 12:15 AM EDT 04/07/2018 12:21 AM EDT Narrative Resulting Agency Comment Spec In Lab Lida Peter MD CHEMISTRY ORDERABLES Performing Organization Address City/[facility]/ZIP Co de Phone Number [facility] [place] [address] * POCT Glucose (04/06/2018 8:30 PM EDT) Glucose, POC 177 65 - 199 mg/dL [facility] Comment: Supplemental ranges: <140 mg/dL before meals <180 mg/dL all other times of the day Blood specimen (specimen) 04/06/2018 8:30 PM EDT 04/06/2018 8:30 PM EDT Lida Peter MD POINT OF CARE TEST O RDERABLES Performing Organization Address [facility]/ZIP Co de Phone Number [facility] [place] [address] * Request For 2nd Read CT Chest [...] the chest, abdomen, and pelvis performed at [facility] on 04/06/2018. 5 mm and [...] Spleen: Normal. Kidneys/Adrenals: The RIGHT and LEFT grindstone kidneys are severely atrophic. The patient status [...] Spleen: Normal. Kidneys/Adrenals: The RIGHT and LEFT grindstone kidneys are severely atrophic.The patient status post [...] Absolute 7.32(H) 1.70 - 6.10 x10(3)/mc L [facility] Lymph % 4.8 % [facility] Lymphocytes Abs 0.4(L) 0.9 - 3.2 x10(3)/mc L [facility] Monocyte % 9.1 % [facility] Monocyte Abs 0.8 0.3 - 0.9 x10(3)/mc L [facility] Eos % 0.0 % [facility] Eosinophils Abs 0.0 0.0 - 0.4 x10(3)/mc L [facility] Basophil % 0.0 % [facility] Baso Absolute 0.0 0.0 - 0.1 x10(3)/mc L [facility] Immature Gran % 0.50 % [facility] Comment: Immature granulocytes(IG's)percentage and absolute count will include metamyelocytes, myelocytes, and promyelocytes. Blood smears from CBCs yielding IG's will be scanned manually for concordance. If this scan disagrees with the automated IG or if promyelocytes are noted, a manual differential will be performed. Immature Gran Absolute 0.04 0.00 - 0.04 x10(3)/mc L [facility] Blood specimen (specimen) 04/06/2018 5:40 PM EDT 04/06/2018 6:01 PM EDT Narrative Resulting Agency Comment Spec In Lab Natalya Minaya MD HEMATOLOGY ORDERABLE S [facility] [place] [address] * (ABNORMAL) Hemogram (04/06/2018 5:40 PM EDT) White Blood Cell 8.6 4.0 - 9.5 x10(3)/[facility] Red Blood Cell 2.56(L) 4.58 - 5.54 x10(6)/[facility] Hemoglobin 7.8(L) 13.7 - 16.5 gm/dL [facility] Hematocrit 23.1(L) 40.5 - 48.5 % [facility] Mean Cell Volume 90.2 82.9 - 93.1 [facility] Mean Cell Hemoglobin 30.5 27.5 - 32.1 pg [facility] Mean Cell Hemoglobin Concentration 33.8 32.0 - 35.7 gm/dL [facility] Platelet 95(L) 145 - 357 x10(3)/[facility] RDW Standard Deviation 53.6(H) 36.0 - 45.0 [facility] RDW coefficient of variation 16.6(H) 11.4 - 13.8 % [facility] Mean Platelet Volume 9.5 7.6 - 12.9 [facility] NRBC% auto 0.0 % [facility] NRBC Absolute 0.000 0.000 - 0.000 x10(3)/ L [facility] Blood specimen (specimen) 04/06/2018 5:40 PM EDT 04/06/2018 6:01 PM EDT Narrative Resulting Agency Comment Spec In Lab Natalya Minaya MD HEMATOLOGY ORDERABLE S Performing Organization Address City/[facility]/ZIP Co de Phone Number [facility] [place] [address] * Phosphorus (04/06/2018 5:40 PM EDT) Phosphorus 3.3 2.5 - 4.5 mg/dL [facility] Blood specimen (specimen) 04/06/2018 5:40 PM EDT 04/06/2018 6:01 PM EDT Narrative Resulting Agency Comment Spec In Lab Lida Peter MD CHEMISTRY ORDERABLES Performing Organization Address [facility] Co de Phone Number [facility] [place] [address] * (ABNORMAL) Magnesium (04/06/2018 5:40 PM EDT) [facility] Magnesium 0.60(L) 0.69 - 1.07 mmol/L [facility] Blood specimen (specimen) 04/06/2018 5:40 PM EDT 04/06/2018 6:01 PM EDT Narrative Resulting Agency Comment Spec In Lab Lida Peter MD CHEMISTRY ORDERABLES Performing Organization Address [facility] Co de Phone Number [facility] [place] [address] * (ABNORMAL) Cardiac Enzymes (LEB/CGP) (04/06/2018 5:40 PM EDT) Troponin-T 0.20(H) 0.00 - 0.00 ng/mL [facility] Comment: The 99th percentile for Troponin T is less than 0.01 ng/mL, any detectable cTnT concentration using this assay should be considered elevated. According to the third universal definition of myocardial infarction the following criteria with a clinical presentation consistent with acute myocardial ischemia meets the diagnosis for a myocardial infarction (MN). Detection of a rise and/or fall of cTnT, with at least one value greater than the 99th percentile (> or = 0.01) and with at least one of the following ?? Symptoms of ischemia ?? New or presumed new significant [id number]-A wave (ST-T) changes or new left bundle [...] additional sample may be indicated. Reference: Third Wickes Definition of Myocardial Infarction. Journal of the [employer] College [employer] 2012;60:1581-98 Creatine Kinase 249(H) 0 - 200 unit/L [facility] Blood specimen (specimen) 04/06/2018 5:40 PM EDT 04/06/2018 6:01 PM EDT Narrative Resulting Agency Comment Spec In Lab Lida Peter MD CHEMISTRY ORDERABLES [facility] [place] [address] * (ABNORMAL) CMP w/fasting Glucose (04/06/2018 5:40 PM EDT) Glucose Fasting 140(H) 65 - 99 mg/dL [facility] Comment: ?Fasting* Glucose Interpretive [...] of Diabetes Mellitus, Position Statement from the [employer]. ??Diabetes Care, Volume 33, Supplement 1, Jul 2009 Blood Urea Nitrogen 45(H) 10 - 20 mg/dL [facility] Creatinine 2.48(H) 0.80 - 1.50 mg/dL [facility] Sodium 145 135 - 145 mmol/L [facility] Potassium 5.2(H) 3.5 - 5.0 mmol/L [facility] Comment: Please note: ??Patients with WBC >100,000 may have falsely elevated Potassium levels. ??For accurate Potassium quantification in these patients send serum separator tube (gold top) for subsequent determinations. ??Contact the Clinical Chemistry Laboratory if there are any questions. Chloride 118(H) 98 - 107 mmol/L [facility] Carbon Dioxide 16(L) 22 - 31 mmol/L [facility] Anion Gap 11 5 - 15 mmol/L [facility] Calcium 6.7(Criti constance) 8.5 - 10.5 mg/dL [facility] Comment:Calcium not critical when adjusted for albumin concentration. Protein, Total 4.3(L) 6.1 - 8.0 gm/dL [facility] Albumin 2.3(L) 3.2 - 5.2 gm/dL [facility] Aspartate Aminotransferase 22 0 - 39 unit/L [facility] Alanine Aminotransferase 20 0 - 55 unit/L [facility] Alkaline Phosphatase 57 40 - 120 unit/L [facility] Bilirubin, Total 0.3 0.2 - 1.3 mg/dL [facility] Est Glomerular Filtration Rate 28(L) >=60 mL/min/1. 73 m?? [facility] Comment: The eGFR was calculated using the CKD-EPI equation. As with all creatinine based estimates of kidney function, eGFR values calculated with the CKD-EPI equation are not accurate in patients with acute kidney failure, extremes of body mass or the acutely ill. [email or web address] eGFR 32(L) >=60 mL/min/1. 73 m?? [facility] Comment: The eGFR was calculated using the CKD-EPI equation. As with all creatinine based estimates of kidney function, eGFR values calculated with the CKD-EPI equation are not accurate in patients with acute kidney failure, extremes of body mass or the acutely ill. [email or web address] Blood specimen (specimen) 04/06/2018 5:40 PM EDT 04/06/2018 6:01 PM EDT Narrative Resulting Agency Comment Spec In Lab Lida Peter MD CHEMISTRY ORDERABLES Performing Organization Address [facility] Co de Phone Number [facility] [place] [address] * APTT (04/06/2018 5:40 PM EDT) Partial Thromboplastin Time 30 25 - 37 sec [facility] Comment: The PTT is NOT appropriate for heparin monitoring. Use the Anti-Xa level for heparin monitoring (HEP UFH) or LMWH monitoring (HEP LMW). A PTT less than 37 seconds generally indicates adequate hemostasis. Blood specimen (specimen) 04/06/2018 5:40 PM EDT 04/06/2018 6:01 PM EDT Narrative Resulting Agency Comment Spec In Lab Lida Peter MD HEMATOLOGY ORDERABLE S Performing Organization Address [facility] de Phone Number [facility] [place] [address] * (ABNORMAL) Prothrombin Time (04/06/2018 5:40 PM EDT) Prothrombin Time 24.1(H) 9.4 - 12.5 sec [facility] International Normalization Ratio 2.2 [facility] Comment: An INR [...] Lab Lida Peter MD HEMATOLOGY ORDERABLE S [facility] [place] [address] * (ABNORMAL) BLOOD GAS 2 ARTERIAL (04/06/2018 5:24 PM EDT) pH, Arterial 7.29(Crit ical) 7.35 - 7.45 [facility] Comment:Noted by aircraft instrument repairer. PCO2, Arterial 31(L) 35 - 45 mmHg [facility] PO2, Arterial 65(L) 85 - 104 mmHg [facility] Bicarbonate, Arterial 15.2(L) 20.0 - 26.0 mmol/L [facility] Base Excess, Arterial -11.8(L) -3.0 - 3.0 mmol/L [facility] Hgb Blood Gas 8.4(L) 13.7 - 16.5 gm/dL [facility] Oxyhemoglobin, Arterial 93.0(L) 94.0 - 97.0 % [facility] Carboxyhemoglo bin, Arterial 0.3 % [facility] Comment: Nonsmokers: 0.5-1.5% COHB Smokers: Variable, but usually less than 10% Toxic: 20-30% COHB Lethal: Greater than 60% COHB Methemoglobin, Arterial 0.9 <=1.5 % [facility] Na Whole Blood 140 135 - 145 mmol/L [facility] K Whole Blood 5.0 3.5 - 5.0 mmol/L [facility] Comment: Please note: Patients with WBC >100,000 may have falsely elevated Potassium levels. Contact the Clinical Chemistry Laboratory if there are any questions. ICa Whole Blood 1.03(L) 1.15 - 1.33 mmol/L [facility] Comment: Note: ??Total bilirubin higher than 20 mg/dL may lead to falsely low ionized calcium. CL Whole Blood 119(H) 98 - 107 mmol/L [facility] Gluc Whole Bld 141 65 - 199 mg/dL [facility] Comment:Diabetes: >=200 mg/d L plus symptoms. Lactate WB 2.4(H) 0.5 - 2.2 mmol/L [facility] FIO2 Art 50 % [facility] PF Ratio Art 130 [facility] Temp Art 34.8 Celsius [facility] Blood specimen (specimen) 04/06/2018 5:24 PM EDT 04/06/2018 5:24 PM EDT Lida Peter MD POINT OF CARE TEST O UMESH Performing Organization Address [facility] Co de Phone Number [facility] [place] [address] * POCT Glucose (04/06/2018 5:10 PM EDT) Glucose, POC 147 65 - 199 mg/dL [facility] Comment: Supplemental ranges: <140 mg/dL before meals <180 mg/dL all other times of the day Blood specimen (specimen) 04/06/2018 5:10 PM EDT 04/06/2018 5:10 PM EDT Lida Peter MD POINT OF CARE TEST O UMESH Performing Organization Address [facility]/ZIP Co de Phone Number [facility] [place] [address] * (ABNORMAL) BLOOD GAS 2 ARTERIAL (04/06/2018 4:04 PM EDT) pH, Arterial 7.27(Criti constance) 7.35 - 7.45 [facility] Comment:Noted by aircraft instrument repairer. PCO2, Arterial 34(L) 35 - 45 mmHg [facility] PO2, Arterial 152(H) 85 - 104 mmHg [facility] Bicarbonate, Arterial 15.2(L) 20.0 - 26.0 mmol/L [facility] Base Excess, Arterial -11.8(L) -3.0 - 3.0 mmol/L [facility] Hgb Blood Gas 8.1(L) 13.7 - 16.5 gm/dL [facility] Oxyhemoglobin, Arterial 97.7(H) 94.0 - 97.0 % [facility] Carboxyhemoglob in, Arterial 0.5 % [facility] Comment: Nonsmokers: 0.5-1.5% COHB Smokers: Variable, but usually less than 10% Toxic: 20-30% COHB Lethal: Greater than 60% COHB Methemoglobin, Arterial 0.3 <=1.5 % [facility] Na Whole Blood 140 135 - 145 mmol/L [facility] K Whole Blood 4.6 3.5 - 5.0 mmol/L [facility] Comment: Please note: Patients with WBC >100,000 may have falsely elevated Potassium levels. Contact the Clinical Chemistry Laboratory if there are any questions. ICa Whole Blood 1.01(L) 1.15 - 1.33 mmol/L [facility] Comment: Note: ??Total bilirubin higher than 20 mg/dL may lead to falsely low ionized calcium. CL Whole Blood 118(H) 98 - 107 mmol/L [facility] Gluc Whole Bld 137 65 - 199 mg/dL [facility] Comment:Diabetes: >=200 mg/d L plus symptoms. Lactate WB 3.1(H) 0.5 - 2.2 mmol/L [facility] Blood specimen (specimen) 04/06/2018 4:04 PM EDT 04/06/2018 4:04 PM EDT Lida Peter MD POINT OF CARE TEST O RDERABLES [facility] [place] [address] * Scan, Peripheral Blood (04/06/2018 3:53 PM EDT) Pathologist [facility] Plat estimate Decreased [facility] RBC Morphology Abnormal [facility] Ovalocytes 1-5 /HPF [facility] [place] Cells 1-5 /HPF [facility] Blood specimen (specimen) 04/06/2018 3:53 PM EDT 04/06/2018 4:05 PM EDT Narrative Resulting Agency Comment Spec In Lab Lida Peter MD HEMATOLOGY ORDERABLE S [facility] [place] [address] * (ABNORMAL) Differential, Automated (04/06/2018 3:53 PM EDT) Pathologist [facility] Neutrophil % 80.4 % [facility] Neutrophil Absolute 8.28(H) 1.70 - 6.10 x10(3)/mc L [facility] Lymph % 6.8 % [facility] Lymphocytes Abs 0.7(L) 0.9 - 3.2 x10(3)/mc L [facility] Monocyte % 11.9 % [facility] Monocyte Abs 1.2(H) 0.3 - 0.9 x10(3)/mc L [facility] Eos % 0.0 % [facility] Eosinophils Abs 0.0 0.0 - 0.4 x10(3)/mc L [facility] Basophil % 0.1 % [facility] Baso Absolute 0.0 0.0 - 0.1 x10(3)/mc L [facility] Immature Gran % 0.80 % [facility] Comment: Immature granulocytes(IG's)percentage and absolute count will include metamyelocytes, myelocytes, and promyelocytes. Blood smears from CBCs yielding IG's will be scanned manually for concordance. If this scan disagrees with the automated IG or if promyelocytes are noted, a manual differential will be performed. Immature Gran Absolute 0.08(H) 0.00 - 0.04 x10(3)/mc L [facility] Blood specimen (specimen) 04/06/2018 3:53 PM EDT 04/06/2018 4:05 PM EDT Narrative Resulting Agency Comment Spec In Lab Lida Peter MD HEMATOLOGY ORDERABLE S [facility] [place] [address] * (ABNORMAL) Hemogram (04/06/2018 3:53 PM EDT) White Blood Cell 10.3(H) 4.0 - 9.5 x10(3)/ L [facility] Red Blood Cell 2.53(L) 4.58 - 5.54 x10(6)/ L [facility] Hemoglobin 7.7(L) 13.7 - 16.5 gm/dL [facility] Comment: This result has been called to MISAEL GRANT by Evon Woodard on 04 06 2018 at 1633, and has been read back. Hematocrit 23.2(L) 40.5 - 48.5 % [facility] Comment: This result has been called to MISAEL GRANT by Evon Woodard on 04 06 2018 at 1633, and has been read back. Mean Cell Volume 91.7 82.9 - 93.1 fL [facility] Mean Cell Hemoglobin 30.4 27.5 - 32.1 pg [facility] Mean Cell Hemoglobin Concentration 33.2 32.0 - 35.7 gm/dL [facility] Platelet 96(L) 145 - 357 x10(3)/ L [facility] RDW Standard Deviation 53.3(H) 36.0 - 45.0 fL [facility] RDW coefficient of variation 16.2(H) 11.4 - 13.8 % [facility] Mean Platelet Volume 9.0 7.6 - 12.9 fL [facility] NRBC% auto 0.0 % [facility] NRBC Absolute 0.000 0.000 - 0.000 x10(3)/mc L [facility] Blood specimen (specimen) 04/06/2018 3:53 PM EDT 04/06/2018 4:05 PM EDT Narrative Resulting Agency Comment Spec In Lab Lida Peter MD HEMATOLOGY ORDERABLE S Performing Organization Address [facility] Co de Phone Number [facility] [place] [address] * APTT (04/06/2018 3:53 PM EDT) Partial Thromboplastin Time 30 25 - 37 sec [facility] Comment: The PTT is NOT appropriate for heparin monitoring. Use the Anti-Xa level for heparin monitoring (HEP UFH) or LMWH monitoring (HEP LMW). A PTT less than 37 seconds generally indicates adequate hemostasis. Blood specimen (specimen) 04/06/2018 3:53 PM EDT 04/06/2018 4:05 PM EDT Narrative Resulting Agency Comment Spec In Lab Lida Peter MD HEMATOLOGY ORDERABLE S Performing Organization Address [facility] de Phone Number [facility] [place] [address] * (ABNORMAL) Prothrombin Time (04/06/2018 3:53 PM EDT) Prothrombin Time 22.5(H) 9.4 - 12.5 sec [facility] Comment:Called by: luisa, Read back by: donn thomas, Date/Time:04/06/18 16:20. International Normalization Ratio 2.0 [facility] Comment: An INR [...] Lab Lida Peter MD HEMATOLOGY ORDERABLE S [facility] [place] [address] * (ABNORMAL) BLOOD GAS 2 ARTERIAL (04/06/2018 3:41 PM EDT) pH, Arterial 7.22(Criti constance) 7.35 - 7.45 [facility] Comment:Noted by aircraft instrument repairer. PCO2, Arterial 39 35 - 45 mmHg [facility] PO2, Arterial 168(H) 85 - 104 mmHg [facility] Bicarbonate, Arterial 15.3(L) 20.0 - 26.0 mmol/L [facility] Base Excess, Arterial -12.4(L) -3.0 - 3.0 mmol/L [facility] Hgb Blood Gas 8.4(L) 13.7 - 16.5 gm/dL [facility] Oxyhemoglobin, Arterial 98.1(H) 94.0 - 97.0 % [facility] Carboxyhemoglob in, Arterial 0.2 % [facility] Comment: Nonsmokers: 0.5-1.5% COHB Smokers: Variable, but usually less than 10% Toxic: 20-30% COHB Lethal: Greater than 60% COHB Methemoglobin, Arterial 0.3 <=1.5 % [facility] Na Whole Blood 143 135 - 145 mmol/L [facility] K Whole Blood 4.6 3.5 - 5.0 mmol/L [facility] Comment: Please note: Patients with WBC >100,000 may have falsely elevated Potassium levels. Contact the Clinical Chemistry Laboratory if there are any questions. ICa Whole Blood 0.92(Criti constance) 1.15 - 1.33 mmol/L [facility] Comment: Noted by aircraft instrument repairer. Note: ??Total bilirubin higher than 20 mg/dL may lead to falsely low ionized calcium. CL Whole Blood 119(H) 98 - 107 mmol/L [facility] Gluc Whole Bld 158 65 - 199 mg/dL [facility] Comment:Diabetes: >=200 mg/d L plus symptoms. Lactate WB 3.2(H) 0.5 - 2.2 mmol/L [facility] Blood specimen (specimen) 04/06/2018 3:41 PM EDT 04/06/2018 3:41 PM EDT Lida Peter MD POINT OF CARE TEST O UMESH [facility] [place] [address] * (ABNORMAL) BLOOD GAS 2 ARTERIAL (04/06/2018 3:13 PM EDT) pH, Arterial 7.18(Criti constance) 7.35 - 7.45 [facility] Comment:Noted by aircraft instrument repairer. PCO2, Arterial 40 35 - 45 mmHg [facility] PO2, Arterial 228(H) 85 - 104 mmHg [facility] [facility] Bicarbonate, Arterial 14.8(L) 20.0 - 26.0 mmol/L [facility] Base Excess, Arterial -13.5(L) -3.0 - 3.0 mmol/L [facility] Hgb Blood Gas 9.4(L) 13.7 - 16.5 gm/dL [facility] Oxyhemoglobin, Arterial 98.3(H) 94.0 - 97.0 % [facility] Carboxyhemoglob in, Arterial 0.3 % [facility] Comment: Nonsmokers: 0.5-1.5% COHB Smokers: Variable, but usually less than 10% Toxic: 20-30% COHB Lethal: Greater than 60% COHB Methemoglobin, Arterial 0.3 <=1.5 % [facility] Na Whole Blood 141 135 - 145 mmol/L [facility] K Whole Blood 4.8 3.5 - 5.0 mmol/L [facility] Comment: Please note: Patients with WBC >100,000 may have falsely elevated Potassium levels. Contact the Clinical Chemistry Laboratory if there are any questions. ICa Whole Blood 1.12(L) 1.15 - 1.33 mmol/L [facility] Comment: Note: ??Total bilirubin higher than 20 mg/dL may lead to falsely low ionized calcium. CL Whole Blood 120(H) 98 - 107 mmol/L [facility] Gluc Whole Bld 125 65 - 199 mg/dL [facility] Comment:Diabetes: >=200 mg/d L plus symptoms. Lactate WB 2.8(H) 0.5 - 2.2 mmol/L [facility] Blood specimen (specimen) 04/06/2018 3:13 PM EDT 04/06/2018 3:13 PM EDT Lida Peter MD POINT OF CARE TEST O RDERABLES [facility] [place] [address] * (ABNORMAL) BLOOD GAS 2 ARTERIAL (04/06/2018 2:48 PM EDT) pH, Arterial 7.27(Criti constance) 7.35 - 7.45 [facility] Comment:Noted by aircraft instrument repairer. PCO2, Arterial 36 35 - 45 mmHg [facility] PO2, Arterial 379(H) 85 - 104 mmHg [facility] Bicarbonate, Arterial 16.1(L) 20.0 - 26.0 mmol/L [facility] Base Excess, Arterial -10.8(L) -3.0 - 3.0 mmol/L [facility] Hgb Blood Gas 9.7(L) 13.7 - 16.5 gm/dL [facility] Oxyhemoglobin, Arterial 98.5(H) 94.0 - 97.0 % [facility] Carboxyhemoglob in, Arterial 0.3 % [facility] Comment: Nonsmokers: 0.5-1.5% COHB Smokers: Variable, but usually less than 10% Toxic: 20-30% COHB Lethal: Greater than 60% COHB Methemoglobin, Arterial 0.3 <=1.5 % [facility] Na Whole Blood 142 135 - 145 mmol/L [facility] K Whole Blood 5.4(H) 3.5 - 5.0 mmol/L [facility] Comment: Please note: Patients with WBC >100,000 may have falsely elevated Potassium levels. Contact the Clinical Chemistry Laboratory if there are any questions. ICa Whole Blood 1.10(L) 1.15 - 1.33 mmol/L [facility] Comment: Note: ??Total bilirubin higher than 20 mg/dL may lead to falsely low ionized calcium. CL Whole Blood 117(H) 98 - 107 mmol/L [facility] Gluc Whole Bld 185 65 - 199 mg/dL [facility] Comment:Diabetes: >=200 mg/d L plus symptoms. Lactate WB 1.9 0.5 - 2.2 mmol/L [facility] Blood specimen (specimen) 04/06/2018 2:48 PM EDT 04/06/2018 2:48 PM EDT Lida Peter MD POINT OF CARE TEST O RDERAMARISOL Performing Organization Address City/State/[facility] Co de Phone Number [facility] [place] [address] * (ABNORMAL) BLOOD GAS 2 ARTERIAL (04/06/2018 2:46 PM EDT) pH, Arterial 7.27(Criti constance) 7.35 - 7.45 [facility] Comment:Noted by aircraft instrument repairer. PCO2, Arterial 36 35 - 45 mmHg [facility] PO2, Arterial Not Perf 85 - 104 mmHg [facility] Bicarbonate, Arterial 16.2(L) 20.0 - 26.0 mmol/L [facility] Base Excess, Arterial -10.7(L) -3.0 - 3.0 mmol/L [facility] Hgb Blood Gas 9.3(L) 13.7 - 16.5 gm/dL [facility] Oxyhemoglobin, Arterial 98.9(H) 94.0 - 97.0 % [facility] Carboxyhemoglob in, Arterial 0.3 % [facility] Comment: Nonsmokers: 0.5-1.5% COHB Smokers: Variable, but usually less than 10% Toxic: 20-30% COHB Lethal: Greater than 60% COHB Methemoglobin, Arterial 0.3 <=1.5 % [facility] Na Whole Blood 143 135 - 145 mmol/L [facility] K Whole Blood 5.5(H) 3.5 - 5.0 mmol/L [facility] Comment: Please note: Patients with WBC >100,000 may have falsely elevated Potassium levels. Contact the Clinical Chemistry Laboratory if there are any questions. ICa Whole Blood 1.09(L) 1.15 - 1.33 mmol/L [facility] Comment: Note: ??Total bilirubin higher than 20 mg/dL may lead to falsely low ionized calcium. CL Whole Blood 118(H) 98 - 107 mmol/L [facility] Gluc Whole Bld 191 65 - 199 mg/dL [facility] Comment:Diabetes: >=200 mg/d L plus symptoms. Lactate WB 1.8 0.5 - 2.2 mmol/L [facility] Blood specimen (specimen) 04/06/2018 2:46 PM EDT 04/06/2018 2:46 PM EDT Lida Peter MD POINT OF CARE TEST O RDERABLES [facility] [place] [address] * (ABNORMAL) BLOOD GAS 2 ARTERIAL (04/06/2018 2:16 PM EDT) pH, Arterial 7.29(Criti constance) 7.35 - 7.45 [facility] Comment:Noted by aircraft instrument repairer. PCO2, Arterial 38 35 - 45 mmHg [facility] PO2, Arterial 423(H) 85 - 104 mmHg [facility] Bicarbonate, Arterial 17.9(L) 20.0 - 26.0 mmol/L [facility] Base Excess, Arterial -8.6(L) -3.0 - 3.0 mmol/L [facility] Hgb Blood Gas 9.7(L) 13.7 - 16.5 gm/dL [facility] Oxyhemoglobin, Arterial 98.7(H) 94.0 - 97.0 % [facility] Carboxyhemoglob in, Arterial 0.3 % [facility] Comment: Nonsmokers: 0.5-1.5% COHB Smokers: Variable, but usually less than 10% Toxic: 20-30% COHB Lethal: Greater than 60% COHB Methemoglobin, Arterial 0.3 <=1.5 % [facility] Na Whole Blood 137 135 - 145 mmol/L [facility] K Whole Blood 6.5(Critic al) 3.5 - 5.0 mmol/L [facility] Comment: Noted by aircraft instrument repairer. Please note: Patients with WBC >100,000 may have falsely elevated Potassium levels. Contact the Clinical Chemistry Laboratory if there are any questions. ICa Whole Blood 1.06(L) 1.15 - 1.33 mmol/L [facility] Comment: Note: ??Total bilirubin higher than 20 mg/dL may lead to falsely low ionized calcium. CL Whole Blood 117(H) 98 - 107 mmol/L [facility] Gluc Whole Bld 261(H) 65 - 199 mg/dL [facility] Comment:Diabetes: >=200 mg/d L plus symptoms. Lactate WB 1.1 0.5 - 2.2 mmol/L [facility] Blood specimen (specimen) 04/06/2018 2:16 PM EDT 04/06/2018 2:16 PM EDT Lida Peter MD POINT OF CARE TEST O RDERABLES Performing Organization Address [facility] de Phone Number [facility] [place] [address] * Anaerobic Culture (04/06/2018 2:15 PM EDT) Anaerobic Culture No anaerobic organisms isolated [facility] Fluid specimen (specimen) 04/06/2018 2:15 PM EDT 04/06/2018 2:34 PM EDT Comment:CULTURE LEFT ARM WOU ND Narrative Resulting Agency Comment Spec In Lab Lida Peter MD MICROBIOLOGY - GENER AL ORDERABLES Performing Organization Address [facility] Phone Number [facility] [place] [address] * Body Fluid Culture, Aerobic (04/06/2018 2:15 PM EDT) Body Fluid Culture Few normal cutaneous shaina [facility] Gram Stain Few Neutrophils seen No microorganisms seen. [facility] Fluid specimen (specimen) 04/06/2018 2:15 PM EDT 04/06/2018 2:34 PM EDT Comment:CULTURE LEFT ARM WOU ND Narrative Resulting Agency Comment Spec In Lab Lida Peter MD MICROBIOLOGY - GENER AL ORDERABLES Performing Organization Address [facility] de Phone Number [facility] [place] [address] * (ABNORMAL) BLOOD GAS 2 ARTERIAL (04/06/2018 1:53 PM EDT) pH, Arterial 7.24(Criti constance) 7.35 - 7.45 [facility] Comment:Noted by aircraft instrument repairer. PCO2, Arterial 38 35 - 45 mmHg [facility] PO2, Arterial 388(H) 85 - 104 mmHg [facility] Bicarbonate, Arterial 15.7(L) 20.0 - 26.0 mmol/L [facility] Base Excess, Arterial -11.8(L) -3.0 - 3.0 mmol/L [facility] Hgb Blood Gas 10.8(L) 13.7 - 16.5 gm/dL [facility] Oxyhemoglobin, Arterial 98.8(H) 94.0 - 97.0 % [facility] Carboxyhemoglob in, Arterial 0.3 % [facility] Comment: Nonsmokers: 0.5-1.5% COHB Smokers: Variable, but usually less than 10% Toxic: 20-30% COHB Lethal: Greater than 60% COHB Methemoglobin, Arterial 0.3 <=1.5 % [facility] Na Whole Blood 141 135 - 145 mmol/L [facility] K Whole Blood 6.7(Critic al) 3.5 - 5.0 mmol/L [facility] Comment: Noted by aircraft instrument repairer. Please note: Patients with WBC >100,000 may have falsely elevated Potassium levels. Contact the Clinical Chemistry Laboratory if there are any questions. ICa Whole Blood 1.00(L) 1.15 - 1.33 mmol/L [facility] Comment: Note: ??Total bilirubin higher than 20 mg/dL may lead to falsely low ionized calcium. CL Whole Blood 117(H) 98 - 107 mmol/L [facility] Gluc Whole Bld 219(H) 65 - 199 mg/dL [facility] Comment:Diabetes: >=200 mg/d L plus symptoms. Lactate WB 1.2 0.5 - 2.2 mmol/L [facility] Blood specimen (specimen) 04/06/2018 1:53 PM EDT 04/06/2018 1:53 PM EDT Lida Peter MD POINT OF CARE TEST O RDERABLES [facility] [place] [address] * Request For 2nd Read CT Head [...] RBC, Urine 21(H) 0 - 3 /HPF [facility] WBC, Urine 8(H) 0 - 3 /HPF [facility] Bacteria, Urine Occasional (A) None /HPF [facility] Squamous Epithelial Cells Raw Data, Urine 1 <=4 /HPF [facility] Granular Casts, Urine 1(H) <=0 /LPF [facility] Urine specimen obtained by clean catch procedure (specimen) 04/06/2018 1:25 PM EDT 04/06/2018 1:30 PM EDT Narrative Resulting Agency Comment Spec In Lab Fabian Burkett MD URINE ORDERABLES [facility] [place] [address] * Rapid Drug Screen w/o Confirmation, Urine (04/06/2018 1:25 PM EDT) Barbiturates Screen, Urine None Detected None Detected [facility] Comment: The barbiturate screen [...] Benzodiazepines Screen, Urine None Detected None Detected [facility] Comment: The benzodiazepines screen [...] Cocaine Screen, Urine None Detected None Detected [facility] Comment: The cocaine metabolites screen detects benzoylecgonine (Cocaine Metabolite) at concentrations >150 ng/mL. A ? Presumptive Positive? result indicates that the screening result was positive but has not yet been confirmed by a highly-specific method. As with any screen, occasional false positive results from cross-reacting substances may occur. Not for Medico-Legal Purposes. Methadone Metabolites Screen, Urine None Detected None Detected [facility] Comment: The methadone metabolite screen detects EDDP (major methadone metabolite) at concentrations >100 ng/mL. A ? Presumptive Positive? result indicates that the screening result was positive but has not yet been confirmed by a highly-specific method. As with any screen, occasional false positive results from cross-reacting substances may occur. Not for Medico-Legal Purposes. Opiate Screen, Urine None Detected None Detected [facility] Comment: The opiates screen [...] Cannabinoid Screen, Urine None Detected None Detected [facility] Comment: The marijuana metabolites screen detects the THC metabolite (87-seg-2-carboxy-delta 9-THC) at concentrations >20 ng/mL. A ? Presumptive Positive? result indicates that the screening result was positive but has not yet been confirmed by a highly-specific method. As with any screen, occasional false positive results from cross-reacting substances may occur. Not for Medico-Legal Purposes. Oxycodone Screen, Urine None Detected None Detected [facility] Comment: The oxycodone screen detects oxycodone and oxymorphone at concentrations >100 ng/mL. A ? Presumptive Positive? result indicates that the screening result was positive but has not yet been confirmed by a highly-specific method. As with any screen, occasional false positive results from cross-reacting substances may occur. Not for Medico-Legal Purposes. Buprenorphine Screen, Urine None Detected None Detected [facility] Comment: The buprenorphine screen detects buprenorphine at concentrations >5 ng/mL. A ? Presumptive Positive? result indicates that the screening result was positive but has not yet been confirmed by a highly-specific method. As with any screen, occasional false positive results from cross-reacting substances may occur. Not for Medico-Legal Purposes. Fentanyl Screen, Urine None Detected None Detected [facility] Comment: The fentanyl screen detects fentanyl at concentrations >2 ng/mL. A ? Presumptive Positive? result indicates that the screening result was positive but has not yet been confirmed by a highly-specific method. As with any screen, occasional false positive results from cross-reacting substances may occur. Not for Medico-Legal Purposes. Tricyclics Screen, Urine None Detected None Detected [facility] Comment: The tricyclics screen [...] Ethanol Screen, Urine None Detected None Detected [facility] Comment:This urine ethanol a ssay detects ethanol at concentrations >/= 100 mg/L. Amphetamines Screen, Urine None Detected None Detected [facility] Comment: The amphetamine screen detects d-amphetamine and d-methamphetamine at concentrations >300 ng/mL. A ? Presumptive Positive? result indicates that the screening result was positive but has not yet been confirmed by a highly-specific method. As with any screen, occasional false positive results from cross-reacting substances may occur. Not for Medico-Legal Purposes. Adulterants Screen, Urine None Detected None Detected [facility] Comment: No adulteration or dilution of this urine sample was detected. All urine samples submitted for urine drugs of abuse analysis are tested for creatinine concentration, pH, and for the presence of oxidants, nitrites, and chromate. Urine specimen (specimen) 04/06/2018 1:25 PM EDT 04/06/2018 1:30 PM EDT Narrative Resulting Agency Comment Spec In Lab Fabian Burkett MD CHEMISTRY ORDERABLES [facility] [place] [address] * (ABNORMAL) Urinalysis with reflex Culture (04/06/2018 1:25 PM EDT) Glucose, Urine Dipstick 50(A) Negative mg/dL [facility] Blood, Urine Dipstick Small(A) Negative mg/dL [facility] Ketone, Urine Dipstick Negative Negative mg/dL [facility] Nitrite, Urine Dipstick Negative Negative [facility] Leukocytes, Urine Dipstick Negative Negative [facility] Appearance, Urine Dipstick Hazy(A) Clear [facility] Specific [place] Urine Automated 1.023 1.002 - 1.030 [facility] Color, Urine Dipstick Yellow Yellow [facility] Reflex to Culture No [facility] Urine specimen obtained by clean catch procedure (specimen) 04/06/2018 1:25 PM EDT 04/06/2018 1:30 PM EDT Narrative Resulting Agency Comment Spec In Lab Erwin Hernandez MD URINE ORDERABLES [facility] [place] [address] * Rapid Drug Screen, Urine (RAUL Request) (04/06/2018 1:25 PM EDT) RAUL Conf Requested No [facility] Comment: Collection date/time has been modified to: 13:25:00. ??Previous collection date/time: 13:03:00. Corrected from No [NA] on 04/06/18 01:32 by Crystal Mueller RAUL Requested See Comment [facility] Comment: Refer to Rapid Drug Screen w/o Confirmation, Urine for results. Collection date/time has been modified to: 13:25:00. ??Previous collection date/time: 13:03:00. Corrected from See Comment [NA] on 04/06/18 01:32 by Crystal Mueller Urine specimen (specimen) 04/06/2018 1:25 PM EDT 04/06/2018 1:30 PM EDT Narrative Resulting Agency Comment Spec In Lab Erwin Hernandez MD URINE ORDERABLES Performing Organization Address [facility]/ZIP Co de Phone Number [facility] [place] [address] * CK (04/06/2018 1:15 PM EDT) Creatine Kinase 168 0 - 200 unit/L [facility] Blood specimen (specimen) Venous Draw / Unknown 04/06/2018 1:15 PM EDT 04/06/2018 2:22 PM EDT Narrative Resulting Agency Comment Spec In Lab Kavon Rob MD CHEMISTRY ORDERABLES Performing Organization Address [facility] Co de Phone Number [facility] [place] [address] * Scan, Peripheral Blood (04/06/2018 1:15 PM EDT) Plat estimate Normal [facility] RBC Morphology Abnormal [facility] Ovalocytes 1-5 /HPF [facility] Yovanny Cells 1-5 /HPF [facility] Blood specimen (specimen) 04/06/2018 1:15 PM EDT 04/06/2018 1:24 PM EDT Narrative Resulting Agency Comment Spec In Lab Fabian Burkett MD HEMATOLOGY ORDERABLE S Performing Organization Address City/[facility]/ZIP Co de Phone Number [facility] [place] [address] * ABORH Recheck Status (04/06/2018 1:15 PM EDT) ABORH Type Recheck Completed [facility] Blood specimen (specimen) 04/06/2018 1:15 PM EDT 04/06/2018 1:20 PM EDT Narrative Resulting Agency Comment Spec In Lab Fabian Burkett MD BLOOD BANK LAB ORDER KELLY [facility] [place] [address] * Blue Tube HOLD (04/06/2018 1:15 PM EDT) Blue Hold Sample in lab. [facility] Blood specimen (specimen) Venous Draw / Unknown 04/06/2018 1:15 PM EDT 04/06/2018 1:26 PM EDT Fabian uBrkett MD HEMATOLOGY ORDERABLE S [facility] [place] [address] * Gold Tube HOLD (04/06/2018 1:15 PM EDT) Gold Hold Sample in lab. [facility] Blood specimen (specimen) Venous Draw / Unknown 04/06/2018 1:15 PM EDT 04/06/2018 1:25 PM EDT Fabian Burkett MD CHEMISTRY ORDERABLES [facility] [place] [address] * Blue Tube HOLD (04/06/2018 1:15 PM EDT) Blue Hold Sample in lab. [facility] Blood specimen (specimen) Venous Draw / Unknown 04/06/2018 1:15 PM EDT 04/06/2018 1:26 PM EDT Fabain Burkett MD HEMATOLOGY ORDERABLE S [facility] [place] [address] * (ABNORMAL) Differential, Automated (04/06/2018 1:15 PM EDT) Neutrophil % 78.7 % [facility] Neutrophil Absolute 12.22(H) 1.70 - 6.10 x10(3)/mc L [facility] Lymph % 10.3 % [facility] Lymphocytes Abs 1.6 0.9 - 3.2 x10(3)/[facility] Monocyte % 9.8 % [facility] Monocyte Abs 1.5(H) 0.3 - 0.9 x10(3)/ L [facility] Eos % 0.1 % [facility] Eosinophils Abs 0.0 0.0 - 0.4 x10(3)/ L [facility] Basophil % 0.2 % [facility] Baso Absolute 0.0 0.0 - 0.1 x10(3)/ L [facility] Immature Gran % 0.90 % [facility] Comment: Immature granulocytes(IG's)percentage and absolute count will include metamyelocytes, myelocytes, and promyelocytes. Blood smears from CBCs yielding IG's will be scanned manually for concordance. If this scan disagrees with the automated IG or if promyelocytes are noted, a manual differential will be performed. Immature Gran Absolute 0.14(H) 0.00 - 0.04 x10(3)/ L [facility] Blood specimen (specimen) 04/06/2018 1:15 PM EDT 04/06/2018 1:24 PM EDT Narrative Resulting Agency Comment Spec In Lab Fabian Burkett MD HEMATOLOGY ORDERABLE S [facility] [place] [address] * (ABNORMAL) Hemogram (04/06/2018 1:15 PM EDT) White Blood Cell 15.5(H) 4.0 - 9.5 x10(3)/mc L [facility] Red Blood Cell 3.80(L) 4.58 - 5.54 x10(6)/mc L [facility] Hemoglobin 11.5(L) 13.7 - 16.5 gm/dL [facility] Hematocrit 35.2(L) 40.5 - 48.5 % [facility] Mean Cell Volume 92.6 82.9 - 93.1 fL [facility] Mean Cell Hemoglobin 30.3 27.5 - 32.1 pg [facility] Mean Cell Hemoglobin Concentration 32.7 32.0 - 35.7 gm/dL [facility] Platelet 145 145 - 357 x10(3)/mc L [facility] RDW Standard Deviation 53.2(H) 36.0 - 45.0 fL [facility] RDW coefficient of variation 15.9(H) 11.4 - 13.8 % [facility] Mean Platelet Volume 9.0 7.6 - 12.9 fL [facility] NRBC% auto 0.0 % [facility] NRBC Absolute 0.000 0.000 - 0.000 x10(3)/mc L [facility] Blood specimen (specimen) 04/06/2018 1:15 PM EDT 04/06/2018 1:24 PM EDT Narrative Resulting Agency Comment Spec In Lab Fabian Burkett MD HEMATOLOGY ORDERABLE S [facility] [place] [address] * Antibody screen (04/06/2018 1:15 PM EDT) Pathologist [facility] Ab Screen Interp Negative [facility] Expires at [id number] on: 04/09/2018 [facility] Blood specimen (specimen) 04/06/2018 1:15 PM EDT 04/06/2018 1:20 PM EDT Narrative Resulting Agency Comment Spec In Lab Fabian Burkett MD BLOOD BANK LAB ORDER KELLY [facility] [place] [address] * ABO/Rh Typing (04/06/2018 1:15 PM EDT) [facility] ABORH Type A Pos [facility] Comment: 04/06/2018 15:10 ??CHASDM ABO/Rh determined (Acc# [id number]) to be A pos. Blood specimen (specimen) 04/06/2018 1:15 PM EDT 04/06/2018 1:20 PM EDT Narrative Resulting Agency Comment Spec In Lab Fabian Burkett MD BLOOD BANK LAB ORDER KELLY Performing Organization Address City/[facility]/ZIP Co de Phone Number [facility] [place] [address] * Fibrinogen (04/06/2018 1:15 PM EDT) [facility] Fibrinogen 255 200 - 393 mg/dL [facility] Comment: A fibrinogen level >100 mg/dL is adequate for hemostasis in most patients without underlying bleeding disorders. Blood specimen (specimen) 04/06/2018 1:15 PM EDT 04/06/2018 1:24 PM EDT Narrative Resulting Agency Comment Spec In Lab Erwin Hernandez MD HEMATOLOGY ORDERAB LES Performing Organization Address City/[facility]/ZIP Co de Phone Number [facility] [place] [address] * Ethanol Level (04/06/2018 1:15 PM EDT) [...] MD CHEMISTRY ORDERABL ES Performing Organization Address [facility] Co de Phone Number [facility] [place] [address] * APTT (04/06/2018 1:15 PM EDT) Partial Thromboplastin Time 31 25 - 37 sec [facility] Comment: The PTT is NOT appropriate for heparin monitoring. Use the Anti-Xa level for heparin monitoring (HEP UFH) or LMWH monitoring (HEP LMW). A PTT less than 37 seconds generally indicates adequate hemostasis. Blood specimen (specimen) 04/06/2018 1:15 PM EDT 04/06/2018 1:24 PM EDT Narrative Resulting Agency Comment Spec In Lab Erwin Hernandez MD HEMATOLOGY ORDERAB LES Performing Organization Address [facility] Co de Phone Number [facility] [place] [address] * (ABNORMAL) Prothrombin Time (04/06/2018 1:15 PM EDT) Prothrombin Time 29.1(H) 9.4 - 12.5 sec [facility] International Normalization Ratio 2.6 [facility] Comment: An INR [...] Lab Erwin Hernandez MD HEMATOLOGY ORDERAB LES [facility] [place] [address] * (ABNORMAL) Basic Metabolic Panel (non-fasting) (04/06/2018 1:15 PM EDT) Glucose 219(H) 65 - 199 mg/dL [facility] Comment:Diabetes: >=200 mg/d L plus symptoms Blood Urea Nitrogen 39(H) 10 - 20 mg/dL [facility] Creatinine 2.01(H) 0.80 - 1.50 mg/dL [facility] Sodium 140 135 - 145 mmol/L [facility] Potassium 5.2(H) 3.5 - 5.0 mmol/L [facility] Comment: Please note: ??Patients with WBC >100,000 may have falsely elevated Potassium levels. ??For accurate Potassium quantification in these patients send serum separator tube (gold top) for subsequent determinations. ??Contact the Clinical Chemistry Laboratory if there are any questions. Chloride 116(H) 98 - 107 mmol/L [facility] Carbon Dioxide 15(L) 22 - 31 mmol/L [facility] Anion Gap 9 5 - 15 mmol/L [facility] Calcium 4.9(Criti constance) 8.5 - 10.5 mg/dL [facility] Comment:Called by: lorelei, Read back by: misael luong_, Date/Time:04/06/18 14:04. Est Glomerular Filtration Rate 36(L) >=60 mL/min/1. 73 m?? [facility] Comment: The eGFR was calculated using the CKD-EPI equation. As with all creatinine based estimates of kidney function, eGFR values calculated with the CKD-EPI equation are not accurate in patients with acute kidney failure, extremes of body mass or the acutely ill. http://TinyCo/DHnkf eGFR 42(L) >=60 mL/min/1. 73 m?? [facility] Comment: The eGFR was calculated using the CKD-EPI equation. As with all creatinine based estimates of kidney function, eGFR values calculated with the CKD-EPI equation are not accurate in patients with acute kidney failure, extremes of body mass or the acutely ill. [email or web address]/[facility] OKEENEnkf Blood specimen (specimen) 04/06/2018 1:15 PM EDT 04/06/2018 1:24 PM EDT Narrative Resulting Agency Comment Spec In Lab Erwin Hernandez MD CHEMISTRY ORDERABL ES [facility] [place] [id number] * XR Chest AP and Pelvis AP [...] pH, Arterial 7.14(Criti constance) 7.35 - 7.45 [facility] Comment:Noted by aircraft instrument repairer. PCO2, Arterial 51(H) 35 - 45 mmHg [facility] PO2, Arterial 38(Critica l) 85 - 104 mmHg [facility] Comment:Noted by aircraft instrument repairer. Bicarbonate, Arterial 16.7(L) 20.0 - 26.0 mmol/L [facility] Base Excess, Arterial -12.4(L) -3.0 - 3.0 mmol/L [facility] Hgb Blood Gas 12.3(L) 13.7 - 16.5 gm/dL [facility] Oxyhemoglobin, Arterial 69.1(L) 94.0 - 97.0 % [facility] Carboxyhemoglob in, Arterial 0.3 % [facility] Comment: Nonsmokers: 0.5-1.5% COHB Smokers: Variable, but usually less than 10% Toxic: 20-30% COHB Lethal: Greater than 60% COHB Methemoglobin, Arterial 0.4 <=1.5 % [facility] Na Whole Blood 137 135 - 145 mmol/L [facility] K Whole Blood 6.3(Critic al) 3.5 - 5.0 mmol/L [facility] Comment: Noted by aircraft instrument repairer. Please note: Patients with WBC >100,000 may have falsely elevated Potassium levels. Contact the Clinical Chemistry Laboratory if there are any questions. ICa Whole Blood 1.01(L) 1.15 - 1.33 mmol/L [facility] Comment: Note: ??Total bilirubin higher than 20 mg/dL may lead to falsely low ionized calcium. CL Whole Blood 112(H) 98 - 107 mmol/L [facility] Gluc Whole Bld 258(H) 65 - 199 mg/dL [facility] Comment:Diabetes: >=200 mg/d L plus symptoms. Lactate WB 2.0 0.5 - 2.2 mmol/L [facility] Blood specimen (specimen) 04/06/2018 1:14 PM EDT 04/06/2018 1:14 PM EDT Erwin Hernandez MD POINT OF CARE TEST ORDERABLES [facility] [place] [address] * Prepare RBC (04/06/2018 1:05 PM EDT) Dispensed? Yes [facility] Blood specimen (specimen) 04/06/2018 1:05 PM EDT 04/06/2018 1:03 PM EDT Erwin Hernandez MD BLOOD BANK PRODUCT ORDERABLES Performing Organization Address City/[facility]/ZIP Co de Phone Number [facility] [place] [address] * Film Library- Storage Only CT Chest Abdomen Pelvis (04/06/2018 12:05 AM EDT) Narrative [facility] - 04/06/2018 2:07 PM EDT This exam is for storage only and is auto-finalizing. Fabian Burkett MD [facility] FILM LIBRARY ORD ERABLES Performing Organization Address [facility] de Phone Number [place], [place] * SCAN DOC: IMPLANTABLE DEVICES (04/06/2018 12:00 AM EDT) Narrative 04/06/2018 12:00 AM EDT Ordered by an unspecified provider. Scanning Provider MEDIA MGR SCAN EXT O RDR/RSLT * Film Library- Storage Only CT Head And Spine (04/06/2018 12:00 AM EDT) Narrative [facility] - 04/06/2018 1:32 PM EDT This exam is for storage only and is auto-finalizing. Fabian Burkett MD [facility] FILM LIBRARY ORD ERABLES Performing Organization Address [facility] de Phone Number [place], [place] * SCAN DOC: LAB (04/06/2018 12:00 AM EDT) Narrative 04/06/2018 12:00 AM EDT Ordered by an unspecified provider. Scanning Provider MEDIA MGR SCAN EXT O RDR/RSLT * SCAN DOC: MEDICAID ANALYST (04/06/2018 12:00 AM EDT) Anatomical Region Laterality [...] Routine documented in this encounter Care Teams Wallboard Worker Relationship Specialty Start Date End Date Carroll Garcia DO [address] [place] [address] PCP - General 09/23/11 10/20/22 documented as of this encounter
--- OUTSIDE RECORDS SUMMARY | 2024-05-23 13:28 | XMS_ITS | Encounter Summary ---
Author Organization [facility] [place] [address] Care Team Providers Care Drug Safety Coordinator Name Role Phone Alfredo Carroll MIX Primary Care Provider [phone] Reason for Visit * Auth/Cert Specialty Diagnoses [...] Expiration Date Visits Re quested Visits Authorized [id number] 1 1 Encounter Details Date Type Department Care Team (Late st Contact Info) Description 04/14/2018 7:29 AM EDT Anesthesia Event [place] [phone] Padmini Murdock MD [facility] [place] [address] Agustina Mendoza CRNA [facility] [place] [address] Anesthesia Record Procedure Summary Procedure Name Responsible [...] cephalic vein (lateral side of arm), right; [id number]-[id number]-gzyaax catheter system; 22 gauge; catheter/device intact; 04/26/18; [...] Removal Time: 82604/14/18 0742 by Agustina Mendoza, RAG PRODUCTION WORKER 04/14/18 0827 by Agustina Mendoza, RAG PRODUCTION WORKER Incision 04/14/18; 0802; arm; other (see comments) [...] Murdock MD - 04/14/2018 11:06 AM EDT [facility] Department of Anesthesiology Post-procedure Note Patient: Adama Ram Procedure Summary Date Anesthesia Start Anesthesia Stop Room / Location 04/14/18 0729 0834 [facility] OR [facility] MAIN OR Procedure Diagnosis Surgeon Responsible Provider REPAIR INTERMEDIATE WOUND, (NO HANDS OR FEET) >30.0CM, UPPER EXTREMITY (WRVU 5) (Left ); MODIFIER WOUND VAC (Left Arm Lower) (open LUE fasciotomies) Yimi Easton MD Chaimberg, Kathleen H, MD All Anesthesia Providers: Anesthesiologist: Padmini Murdock MD RAG PRODUCTION WORKER: Agustina Mendoza CRNA Most Recent Vitals: 04/14/18 0948 BP: (!) 154/99 Pulse: 59 Resp: 14 Temp: 36.8 ??C (98.2 ??F) SpO2: Pain Patient Location: PACU/[facility] Level of Consciousness: Awake and Alert Pain [...] GFR 15-29 ml/min ??? 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 [...] at [facility] MAIN OR ??? PRO DECOMPRESS FOREARM, BRACH ART EXPLOR Left 04/06/2018 FASCIOTOMY, FOREARM, WITH BRACHIAL ARTERY EXPLORATION (WRVU 8.41) performed by Lida Peter, MDat [facility] OR ??? PRO DIRECT REPAIR RUPTURED ANEURYSM, AXILLO-BRACHIAL ARM INCIS Left 04/06/2018 @REPAIR, RUPTURED AXILLARY OR BRACHIAL ARTERY ANEURYSM BY ARM INCISION (WRVU *) performed by Lida Peter MD at [facility] OR ??? PRO EXC PAROTD, TOTAL, UNILAT RAD NECK Left 02/05/2016 @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, TOTAL, WITH UNILATERAL RADICAL NECK DISSECTION performed by Miguel Angel Moreno MD at [facility] MAIN OR ??? PRO EXC SKIN MALIG 3.1-4CM FACE, FACIAL Left 02/05/2016 EXC MALIGNANT LESION, 3.1 TO 4.0CM, FACE performed by Miguel Angel Moreno MD at [facility] MAIN OR ? ? PRO EXC SKIN MALIG >4CM TRUNK, ARM, LEG 04/19/2012 EXC MALIGNANT LESION, MICHAEL > 4.0CM, TRUNK performed by SABRINA SANCHEZ at [facility] MAIN OR ??? PRO LAP, RADICAL NEPHRECTOMY Left 05/31/2017 @LAPAROSCOPY, RADICAL NEPHRECTOMY (WRVU 25.06) performed by Jax Mills MD at [facility] MAIN OR ??? PRO REBL VES GRAFT, UP EXTREM Left 04/06/2018 REPAIR BLOOD VESSEL WITH GRAFT OTHER THAN VEIN, UPPER EXTREMITY (WRVU 15.83) performed by Lida Peter MD at [facility] MAIN OR ??? PRO RELIEVE PRESSURE ON NERVE(S) Left 04/06/2018 (MSURG) CARPAL TUNNEL (WRVU 4.82) performed by Silviano Sparks MD at [facility] MAIN OR ??? PRO REPAIR INTERMEDIATE S/A/T/E 2.6-7.5 CM 04/19/2012 REPAIR INTERMEDIATE WOUND, (NO HANDS OR FEET) 2.6 TO 7.5CM, UPPER EXTREMITY performed by SABRINA SANCHEZ at [facility] MAIN OR ??? PRO REVISE MEDIAN N/CARPAL TUNNEL SURG Left 04/06/2018 MEDIAN NERVE DECOMPRESSION (CARPAL TUNNEL RELEASE) (WRVU 4.97) performed by Lida Peter MD [facility] OR ? ? PRO SPLIT GRFT, HEAD, FAC, HAND, FEET <100SQCM N/A 02/20/2016 SPLIT THICKNESS SKIN SPLIT GRAFT,100SQ CM OR LESS, NECK performed by Miguel Angel Moreno MD at [facility] MAIN OR ??? PRO UPPER GI ENDOSCOPY, BIOPSY N/A 05/13/2017 EGD WITH BIOPSY (WRVU 2.49) performed by Aditya Barrera MD at [facility] ENDOSCOPY ??? PRO VASCULAR SURGERY PROCEDURE UNLIST Left 11/20/2015 LIGATION\REPAIR AV FISTULA performed by Camilo Ireland MD at [facility] MAIN OR ??? PRO VASCULAR SURGERY PROCEDURE UNLIST Left 11/20/2015 EXCISION VEIN FROM HAND performed by Camilo Ireland MD at [facility] MAIN OR ??? US RENAL TRANSPLANT [...] discussed with patient who. Plan discussed with RAG PRODUCTION WORKER. PAT Staff Note documented in this encounter [...] mL/hr documented in this encounter Care Teams Drug Safety Coordinator Relationship Specialty Start Date End Date Carroll Fuentes DO [address] [place] [address] PCP - General 09/23/11 10/20/22 documented as of this encounter
--- OUTSIDE RECORDS SUMMARY | 2024-05-23 13:28 | XMS_ITS | Encounter Summary ---
Author Organization [facility] Address [facility] [place] [address] Care Team Providers Care Unit Technician Name Role Phone AlfredoCarroll allison Primary Care Provider Encounter Details Date Type Department Care Team (Latest Contact Info) Description 04/06/2018 12:05 AM EDT - 04/06/2018 12:57 PM EDT Hospital Encounter Radiology Library at [facility] [place] [phone] Discharge Disposition: Home Social History Tobacco Use [...] Burkett MD [place] FILM LIBRARY ORD ERABLES [place], [place] documented in this encounter Visit Diagnoses Not on filedocumented in this encounter Care Teams Unit Technician Relationship Specialty Start Date End Date Carroll Fuentes DO [address] [place] [address] PCP - General 09/23/11 10/20/22 documented as of this encounter
--- OUTSIDE RECORDS SUMMARY | 2024-05-23 13:28 | XMS_ITS | Encounter Summary ---
Author Organization [facility] Address [facility] [place] [address] Care Team Providers Care Mechanical Developer Prover Name Role Phone AlfredoCarroll allison Primary Care Provider Encounter Details Date Type Department Care Team (Latest Contact Info) Description 04/06/2018 6:08 PM EDT - 04/06/2018 11:59 PM EDT Hospital Encounter Radiology Library at [facility] [place] [phone] Discharge Disposition: Home Social History Tobacco Use [...] the chest, abdomen, and pelvis performed at [facility] on 04/06/2018. 5 mm and 1 [...] Spleen: Normal. Kidneys/Adrenals: The RIGHT and LEFT muscogee kidneys are severely atrophic. The patient status [...] chest, abdomen, and pelvis performed at an [facility] on 04/06/2018. 5 mm and 1 [...] Spleen: Normal. Kidneys/Adrenals: The RIGHT and LEFT muscogee kidneys are severely atrophic.The patient status post [...] on filedocumented in this encounter Care Teams Mechanical Developer Prover Relationship Specialty Start Date End Date Carroll Fuentes DO [address] [place] [address] PCP - General 09/23/11 10/20/22 documented as of this encounter
--- OUTSIDE RECORDS SUMMARY | 2024-05-23 13:29 | XMS_ITS | Encounter Summary ---
Author Organization [facility] Address [facility] [place] [address] Care Team Providers Care Personalized Living Manager Nurse Name Role Phone Alfredo Carroll MIX Primary Care Provider [phone] Reason for Visit * Auth/Cert Specialty Diagnoses [...] Expiration Date Visits Re quested Visits Authorized [id number] 1 1 Encounter Details Date Type Department Care Team (Late st Contact Info) Description 04/06/2018 1:29 PM EDT Anesthesia Event [place] [phone] Paxton Longoria MD [facility] AN[place] [address] Sabrina Santiago MD [facility] AN[place]ESIOLOG[place] [address] Anesthesia Record Procedure Summary Procedure Name Responsible [...] Selma Vieira RN 04/06/18 2254 by Evelin Summers RN Urethral Catheter 04/06/18; Acute urin shellie retention, Close urine output monitoring: critically ill patient; indwelling catheter with core temperature probe; urethral catheter removed; 04/12/18; 1011 04/06/18 0000 by Evelin Summers RN 04/12/18 1011 by Yady Smith ETT ETT Type: Cuffed; ET T Size: 7.5 mm; ETT Placement Verified By: Capnometry; Secured at Teeth: 24 cm; Removal Date: 04/06/18; Removal Time: 172004/06/18 1344 by Kanu Laughlin, SENIOR TAX MANAGER 04/06/18 1721 by Paxton Longoria MD Incision [...] cephalic vein (lateral side of arm), right; vczk-vbn-sffdhv catheter system; 16 gauge; 04/08/18; 1208 04/06/18 [...] Longoria MD - 04/06/2018 5:22 PM EDT [facility] Department of Anesthesiology Post-procedure Note Patient: Adama Ram Procedure Summary Date Anesthesia Start Anesthesia Stop Room / Location 04/06/18 1329 1720 [facility] OR 24 [facility] MAIN OR Procedure Diagnosis Surgeon Responsible [...] All Anesthesia Providers: Anesthesiologist: Paxton Longoria MD Datastage Developer: Rachelle Steen MD Most Recent Vitals: 04/06/18 [...] TRUNK performed by SABRINA SANCHEZ at [facility] MAIN OR ??? PRO LAP, RADICAL NEPHRECTOMY Left 05/31/2017 @LAPAROSCOPY, RADICAL NEPHRECTOMY (WRVU 25.06) performed by Jax Mills MD at [facility] MAIN OR ??? PRO REPAIR INTERMEDIATE S/A/T/E 2.6-7.5 CM 04/19/2012 REPAIR INTERMEDIATE WOUND, (NO HANDS OR FEET) 2.6 TO 7.5CM, UPPER EXTREMITY performed by SABRINA SANCHEZ at [facility] MAIN OR ? ? PRO SPLIT [...] by Camilo Ireland MD at [facility] OR ??? PRO VASCULAR SURGERY PROCEDURE UNLIST [...] the case. Region - Other Informed Consent: [facility] Staff Note documented in this encounter Plan [...] EDT documented in this encounter Care Teams Personalized Living Manager Nurse Relationship Specialty Start Date End Date Carroll Fuentes DO [address] [place] [address] PCP - General 09/23/11 10/20/22 documented as of this encounter
--- OUTSIDE RECORDS SUMMARY | 2024-05-23 13:29 | XMS_ITS | Encounter Summary ---
Author Organization [facility] Address [facility] [id number] Care Team Providers Care Beer Cooler Name Role Phone AlfredoCarroll allison Primary Care Provider [phone] Encounter Details Date Type Department Care Team (Latest Contact Info) Description 04/06/2018 1:41 PM EDT - 04/06/2018 6:07 PM EDT Hospital Encounter Radiology Library at [facility] [place] [phone] Discharge Disposition: Home Social History Tobacco Use [...] on filedocumented in this encounter Care Teams Beer Cooler Relationship Specialty Start Date End Date Carroll Fuentes DO [address] [place] [address] [address] PCP - General 09/23/11 10/20/22 documented as of this encounter
--- OUTSIDE RECORDS SUMMARY | 2024-05-23 13:29 | XMS_ITS | Encounter Summary ---
Author Organization [facility] Address [facility] [place] [address] Care Team Providers Care Pleat Patternmaker Name Role Phone AlfredoCarroll allison Primary Care Provider Encounter Details Date Type Department Care Team (Latest Contact Info) Description 04/06/2018 - 04/06/2018 12:04 AM EDT Hospital Encounter Radiology Library [place] [facility] [place] [address] Discharge Disposition: Home Social History Tobacco Use [...] FILM LIBRARY ORD ERABLES [place] documented in this encounter Visit Diagnoses Not on filedocumented in this encounter Care Teams Pleat Patternmaker Relationship Specialty Start Date End Date Carroll Fuentes DO [address] [place] [address] [address] [place] [address] PCP - General 09/23/11 10/20/22 documented as of this encounter
--- OUTSIDE RECORDS SUMMARY | 2024-05-23 13:31 | XMS_ITS | Encounter Summary ---
Author Organization [facility] Address [facility] [place] [address] Care Team Providers Care Formula Mixer Name Role Phone Carroll Fuentes DO Primary Care Provider Encounter Details Date Type Department Care Team (Late st Contact Info) Description 10/20/2017 2:30 PM EDT Office [place] [address] Alfonzo Miles MD [facility] [place] [address] Chronic deep vein thrombosis (DVT) of other [...] urology. Alfonzo Miles [place] [address] Pager: [phone], #[phone] Email: [email or web address] [place] [place] documented in this encounter Progress Notes * [...] baseline. 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 [...] necessary. Alfonzo Miles MD Department [place] [address] Pager: [phone], #[phone] Email: [email or web address] [place] [place] cc: CHASE FUENTES DO documented in this [...] Lvl (NOVEMBER) 6.5(L) 12.0 - 46.0 mcg/mL [facility] Comment: ADDITIONAL INFORMATION This test was developed and its performance characteristics determined by [facility] in a manner consistent with CLIA requirements. This test has not been cleared or approved by the U.S. Food and Drug Administration. Test Performed by: [facility] [address], [place] [address] Blood specimen (specimen) 10/20/2017 4:13 PM EDT 10/21/2017 8:40 AM EDT Narrative Resulting Agency Comment Spec In Lab Alfonzo Miles MD LAB SEND OUT ORDERAB LES Performing Organization Address [facility] Co de Phone Number [facility] [place] [address] * (ABNORMAL) Prothrombin Time (10/20/2017 4:13 PM EDT) Prothrombin Time 22.4(H) 9.4 - 12.5 sec [facility] International Normalization Ratio 2.0 [facility] [...] Performing Organization Address [facility] Co de Phone Number [facility] [place] [address] * APTT (10/20/2017 4:13 PM EDT) Partial [...] Lab Alfonzo Miles MD [place] [address] documented in this encounter Visit Diagnoses Diagnosis Chronic deep vein thrombosis (DVT) of other vein of lower extremity, unspecified laterality Partial symptomatic epilepsy with complex partial seizures, not intractable, without status epilepticus documented in this encounter Care Teams Formula Mixer Relationship Specialty Start Date End Date Carroll Fuentes DO [address] [place] [address] PCP - General 09/23/11 10/20/22 documented as of this encounter
--- OUTSIDE RECORDS SUMMARY | 2024-05-23 13:31 | XMS_ITS | Encounter Summary ---
[place] [address] Care Team Providers Care Manager Chinese Name Role Phone Carroll Fuentes DO Primary Care Provider Reason for Visit * Reason Onset Date Comments Medication Refill 02/28/2018 Encounter Details Date Type Department Care Team (Late st Contact Info) Description 02/28/2018 Refill [place] [address] Crystal Brown, [facility] Social History Tobacco Use Types [...] filedocumented in this encounter Care Teams Manager Chinese Relationship Specialty Start Date End Date Carroll Fuentes DO [address] [place] [address] PCP - General 09/23/11 10/20/22 documented as of this encounter
--- OUTSIDE RECORDS SUMMARY | 2024-05-23 13:31 | XMS_ITS | Encounter Summary ---
[place] [address] Care Team Providers Care Wireless Consultant Name Role Phone Carroll Fuentes DO Primary Care Provider Reason for Visit * Reason Onset Date Comments Medication Refill 01/17/2018 Encounter Details Date Type Department Care Team (Late st Contact Info) Description 01/17/2018 Refill [place] [address] Crystal Brown, [facility] Social History Tobacco Use Types Packs/Day Years [...] on filedocumented in this encounter Care Teams Wireless Consultant Relationship Specialty Start Date End Date Carroll Fuentes DO [address] [place] [address] PCP - General 09/23/11 10/20/22 documented as of this encounter
--- OUTSIDE RECORDS SUMMARY | 2024-05-23 13:31 | XMS_ITS | Encounter Summary ---
Author Organization [facility] Address [facility] [place] [address] Care Team Providers Care Halal Butcher Name Role Phone AlfredoCarroll allison Primary Care Provider [phone] Reason for Visit * Reason Onset Date Comments Medication Refill 10/18/2017 Encounter Details Date Type Department Care Team (Late st Contact Info) Description 10/18/2017 [place]phone [place] [address] Alfonzo Miles MD [facility] [place] [address] Medication Refill Social History Tobacco Use Types [...] the day Best number to reach caller: [phone] or [phone] Reason for call: Patient states that he [...] on filedocumented in this encounter Care Teams Halal Butcher Relationship Specialty Start Date End Date Carroll Fuentes DO [address] [place] [address] PCP - General 09/23/11 10/20/22 documented as of this encounter
--- OUTSIDE RECORDS SUMMARY | 2024-05-23 13:31 | XMS_ITS | Encounter Summary ---
Author Organization [facility] Address [facility] [place] [address] Care Team Providers Care Senior Private Client Advisor Name Role Phone AlfredoCarroll allison Primary Care Provider Encounter Details Date Type Department Care Team (Latest Contact Info) Description 08/06/2017 7:46 PM EST - 08/06/2017 11:59 PM [facility] Hospital [place] [address] S/P kidney transplant Discharge Disposition: Home Social [...] (08/06/2017 2:15 PM EST) Tacrolimus <3.0 ng/mL [facility] Comment: Trough therapeutic: ??5-15 ng/mL Performed by ultra-performance liquid chromatography tandem mass spectrometry (UPLCMS/MS). This test was developed and its performance characteristics determined by [facility]. It has not been cleared or [...] CHEMISTRY ORDERAB LES Performing Organization Address City/State/[facility] Co de Phone Number [facility] [place] [address] documented in this encounter Visit Diagnoses Diagnosis S/P kidney transplant Kidney replaced by transplant documented in this encounter Care Teams Senior Private Client Advisor Relationship Specialty Start Date End Date Carroll Fuentes DO [address] [place] [address] PCP - General 09/23/11 10/20/22 documented as of this encounter
--- OUTSIDE RECORDS SUMMARY | 2024-05-23 13:31 | XMS_ITS | Encounter Summary ---
Author Organization [facility] [place] [address] Care Team Providers Care Licensed Chemical Spray Technician Name Role Phone AlfredoCarroll allison Primary Care Provider [phone] Encounter Details Date Type Department Care Team (Late st Contact Info) Description 08/18/2017 Notes Only [place] [address] Crystal Brown CMA Social History Tobacco Use [...] BID ?? [place] ?? Phone: ?? Slabber Light: [employer] ?? Reference #: [id number] ?? Outcome: PENDING * Crystal Brown CMA - 08/18/2017 1:46 PM EST APPROVED 08/18/17 - 08/18/18 #[id number] documented in this encounter Plan of Treatment Not on file documented as of this encounter Visit Diagnoses Not on filedocumented in this encounter Care Teams Licensed Chemical Spray Technician Relationship Specialty Start Date End Date Carroll Fuentes DO [address] [place] [address] [address] [place] [address] PCP - General 09/23/11 10/20/22 documented as of this encounter
--- OUTSIDE RECORDS SUMMARY | 2024-05-23 13:31 | XMS_ITS | Encounter Summary ---
Author Organization [facility] [place] [address] Care Team Providers Care Hat Model Name Role Phone AlfredoCarroll geiger Primary Care Provider [phone] Encounter Details Date Type Department Care Team (Latest Contact Info) Description 09/23/2017 11:00 AM EDT Laboratory Appointment Lab [address] [place] [address] S/P kidney transplant Social History Tobacco Use [...] 11:01 AM EDT) Neutrophil % 62.3 % [facility] Neutrophil Absolute 3.07 1.70 - 6.10 x10(3)/[facility] Lymph % 21.3 % [facility] Lymphocytes Abs 1.0 0.9 - 3.2 x10(3)/[facility] Monocyte % 9.7 % [facility] Monocyte Abs 0.5 0.3 - 0.9 x10(3)/[facility] Eos % 5.7 % [facility] Eosinophils Abs 0.3 0.0 - 0.4 x10(3)/[facility] Basophil % 0.8 % [facility] Baso Absolute 0.0 0.0 - 0.1 x10(3)/[facility] Immature Gran % 0.20 % [facility] Comment: Immature granulocytes(IG's)percentage and absolute count will include metamyelocytes, myelocytes, and promyelocytes. Blood smears from CBCs yielding IG's will be scanned manually for concordance. If this scan disagrees with the automated IG or if promyelocytes are noted, a manual differential will be performed. Immature Gran Absolute 0.01 0.00 - 0.04 x10(3)/[facility] Blood specimen (specimen) 09/23/2017 11:01 AM EDT 09/23/2017 11:14 AM EDT Narrative Resulting Agency Comment Spec In Lab Anup Hawkins MD HEMATOLOGY ORDERA BLES [facility] [place] [address] * (ABNORMAL) Hemogram (09/23/2017 11:01 AM EDT) White Blood Cell 4.9 4.0 - 9.5 x10(3)/[facility] Red Blood Cell 3.85(L) 4.58 - 5.54 x10(6)/[facility] Hemoglobin 11.4(L) 13.7 - 16.5 gm/dL [facility] Hematocrit 35.3(L) 40.5 - 48.5 % [facility] Mean Cell Volume 91.7 82.9 - 93.1 [facility] Mean Cell Hemoglobin 29.6 27.5 - 32.1 pg [facility] Mean Cell Hemoglobin Concentration 32.3 32.0 - 35.7 gm/dL [facility] Platelet 197 145 - 357 x10(3)/ L [facility] RDW Standard Deviation 45.6(H) 36.0 - 45.0 [facility] RDW coefficient of variation 13.5 11.4 - 13.8 % [facility] Mean Platelet Volume 9.3 7.6 - 12.9 fL [facility] NRBC% auto 0.0 % [facility] NRBC Absolute 0.000 0.000 - 0.000 x10(3)/mc L [facility] Blood specimen (specimen) 09/23/2017 11:01 AM EDT 09/23/2017 11:14 AM EDT Narrative Resulting Agency Comment Spec In Lab Anup Hawkins MD HEMATOLOGY ORDERA BLES Performing Organization Address City/[facility]/ZIP Co de Phone Number [facility] [place] [address] * Uric acid (09/23/2017 11:01 AM EDT) Uric Acid 5.7 3.5 - 8.5 mg/dL [facility] Blood specimen (specimen) 09/23/2017 11:01 AM EDT 09/23/2017 11:14 AM EDT Narrative Resulting Agency Comment Spec In Lab Anup Hawkins MD CHEMISTRY ORDERAB LES Performing Organization Address [facility] Co de Phone Number [facility] [place] [address] * Phosphorus (09/23/2017 11:01 AM EDT) Phosphorus 3.9 2.5 - 4.5 mg/dL [facility] Blood specimen (specimen) 09/23/2017 11:01 AM EDT 09/23/2017 11:14 AM EDT Narrative Resulting Agency Comment Spec In Lab Anup Hawkins MD CHEMISTRY ORDERAB LES Performing Organization Address [facility] Co de Phone Number [facility] [place] [address] * Magnesium (09/23/2017 11:01 AM EDT) Magnesium 0.76 0.69 - 1.07 mmol/L [facility] Blood specimen (specimen) 09/23/2017 11:01 AM EDT 09/23/2017 11:14 AM EDT Narrative Resulting Agency Comment Spec In Lab Anup Hawkins MD CHEMISTRY ORDERAB LES [facility] [place] [address] * (ABNORMAL) Comprehensive metabolic panel (non-fasting) (09/23/2017 11:01 AM EDT) Glucose 84 65 - 199 mg/dL [facility] Comment:Diabetes: >=200 mg/d L plus symptoms Blood Urea Nitrogen 50(H) 10 - 20 mg/dL [facility] Creatinine 2.67(H) 0.80 - 1.50 mg/dL [facility] Sodium 144 135 - 145 mmol/L [facility] Potassium 5.2(H) 3.5 - 5.0 mmol/L [facility] Comment: Please note: ??Patients with WBC >100,000 may have falsely elevated Potassium levels. ??For accurate Potassium quantification in these patients send serum separator tube (gold top) for subsequent determinations. ??Contact the Clinical Chemistry Laboratory if there are any questions. Chloride 110(H) 98 - 107 mmol/L [facility] Carbon Dioxide 19(L) 22 - 31 mmol/L [facility] Anion Gap 15 5 - 15 mmol/L [facility] Calcium 8.4(L) 8.5 - 10.5 mg/dL [facility] Protein, Total 6.8 6.1 - 8.0 gm/dL [facility] Albumin 4.3 3.2 - 5.2 gm/dL [facility] Aspartate Aminotransferase 23 0 - 39 unit/L [facility] Alanine Aminotransferase 11 0 - 55 unit/L [facility] Alkaline Phosphatase 104 40 - 120 unit/L [facility] Bilirubin, Total 0.4 0.2 - 1.3 mg/dL [facility] Est Glomerular Filtration Rate 25(L) >=60 [facility] Comment: The reported eGFR should be multiplied by 1.2 for patients. The MDRD is not an appropriate measure of renal function for patients with body mass extremes or in patients with acute kidney failure. http://[employer]/DHnkdep http://[employer]/DHMCnkf Blood specimen (specimen) 09/23/2017 11:01 AM EDT 09/23/2017 11:14 AM EDT Narrative Resulting Agency Comment Spec In Lab Anup Hawkins MD CHEMISTRY ORDERAB LES [facility] [place] [address] * Cholesterol, total (09/23/2017 11:01 AM EDT) Cholesterol, Total 177 mg/dL [facility] Comment: Lower Risk: <200 mg/dL Average Risk: 200-239 mg/dL Higher Risk: >sk=548 mg/dL Lipid Interpretation See Note [facility] Comment: Lipid management should be guided by a patient? s ASCVD risk, goals and preferences. ACC/AHA Guidelines recommend high intensity statin if clinical ASCVD or LDL greater than or equal to 190 mg/dL. http://[employer] ([employer])/DED-DMR-Swbmwombs Adults aged 40-75 with LDL 70-189 mg/dL should have their 10 year ASCVD risk estimated with the ACC/AHA ASCVD risk supervisor estimator and drafter http://tools.acc.org/KRBFN-Wykg-Gntqfebxt/ Statin should be discussed if risk greater [...] ORDERAB LES Performing Organization Address [facility]/ZIP Co de Phone Number [facility] [place] [address] * Tacrolimus level (09/23/2017 11:01 AM EDT) Tacrolimus 5.5 ng/mL [facility] Comment: Trough therapeutic: ??5-15 ng/mL Performed by ultra-performance liquid chromatography tandem mass spectrometry (UPLCMS/MS). This test was developed and its performance characteristics determined by [facility]. It has not been [...] ORDERAB LES Performing Organization Address [facility] Co de Phone Number [facility] [place] [address] * Urinalysis Microscopic Exam (09/23/2017 11:00 AM EDT) RBC, Urine 1 0 - 3 /HPF [facility] WBC, Urine <1 0 - 3 /HPF [facility] Urine specimen obtained by clean catch procedure (specimen) 09/23/2017 11:00 AM EDT 09/23/2017 4:55 PM EDT Narrative Resulting Agency Comment Spec In Lab Anup Hawkins MD URINE ORDERABLES Performing Organization Address City/[facility]/ZIP Co de Phone Number [facility] [place] [address] * (ABNORMAL) Urinalysis with reflex Culture (09/23/2017 11:00 AM EDT) Glucose, Urine Dipstick Negative Negative mg/dL [facility] Protein, Urine Dipstick 100(A) Negative mg/dL [facility] Bilirubin, Urine Dipstick Negative Negative mg/dL [facility] Comment: Clinical correlation required for positive Urine Bilirubin results as false positive may occur with some drugs and drug related products. If a false positive is suspected a serum total bilirubin should be considered if clinically indicated. Urobilinogen, Urine Dipstick Normal Normal mg/dL [facility] pH, Urn (dipstick) 5.0 5.0 - 8.0 [facility] Blood, Urine Dipstick Negative Negative mg/dL [facility] Ketone, Urine Dipstick Negative Negative mg/dL [facility] Nitrite, Urine Dipstick Negative Negative [facility] Leukocytes, Urine Dipstick Negative Negative mcL [facility] Appearance, Urine Dipstick Clear Clear [facility] Specific [place] Urine Automated 1.015 1.002 - 1.030 [facility] Color, Urine Dipstick Yellow Yellow [facility] Reflex to Culture No [facility] Urine specimen obtained by clean catch procedure (specimen) 09/23/2017 11:00 AM EDT 09/23/2017 4:55 PM EDT Narrative Resulting Agency Comment Spec In Lab Anup Hawkins MD URINE ORDERABLES [facility] [place] [address] * (ABNORMAL) Protein/Creatinine Ratio, urine (09/23/2017 11:00 AM EDT) Creatinine, Urine 76 mg/dL [facility] Protein, Urine 131(H) 0 - 12 mg/dL [facility] Protein / Creatinine Ratio, Urine 1.7 ratio [facility] Urine specimen (specimen) 09/23/2017 11:00 AM EDT 09/23/2017 11:58 AM EDT Narrative Resulting Agency Comment Spec In Lab Anup Hawkins MD URINE ORDERABLES [facility] [place] [address] documented in this encounter Visit Diagnoses Diagnosis S/P kidney transplant Kidney replaced by transplant documented in this encounter Care Teams Hat Model Relationship Specialty Start Date End Date Carroll Fuentes DO [address] [place] [address] PCP - General 09/23/11 10/20/22 documented as of this encounter
--- OUTSIDE RECORDS SUMMARY | 2024-05-23 13:31 | XMS_ITS | Encounter Summary ---
Author Organization [facility] Address [facility] [place] [address] Care Team Providers Care Solar Sales Consultant Name Role Phone Carroll Fuentes DO Primary Care Provider [phone] Encounter Details Date Type Department Care Team (Late st Contact Info) Description 11/29/2017 Refill Dermatology at [facility] [address] [place] [address] Chanel Smith MD [facility] [address] [place] [address] Rosacea Social History Tobacco Use Types Packs/Day [...] been sent to his [facility] in [facility]. According to office not it looks like the medication he is requesting is - Refill sent today for Rx: Metrocream BID as needed ?? documented in this encounter Plan of Treatment Not on file documented as of this encounter Visit Diagnoses Diagnosis Rosacea documented in this encounter Care Teams Solar Sales Consultant Relationship Specialty Start Date End Date Carroll Fuentes DO [address] [place] [address] PCP - General 09/23/11 10/20/22 documented as of this encounter
--- OUTSIDE RECORDS SUMMARY | 2024-05-23 13:31 | XMS_ITS | Encounter Summary ---
Author Organization [facility] Address [facility] [place] [address] Care Team Providers Care Simulation Analyst Name Role Phone Carroll Fuentes DO Primary Care Provider [phone] Reason for Visit * Reason Comments Skin Check Encounter Details Date Type Department Care Team (Late st Contact Info) Description 02/24/2018 2:15 PM EDT Office Visit Dermatology at [facility] [address] [place] [address] Chanel Smith MD [facility] [place] [address] History of nonmelanoma skin cancer; Multiple benign [...] 1961 CC: Full skin cancer exam HPI: Adama Ram is a 57 y.o. established patient, [...] Dr. Hawkins Otolaryngology team: Dr. Miguel Angel Morneo Procedure Screening Questions: ?? Yes/No If Yes, [...] and signed by: Chanel Smith MD Dermatology [facility] documented in this encounter Plan of Treatment Not on file documented as of this encounter Visit Diagnoses Diagnosis History of nonmelanoma skin cancer Personal history of other malignant neoplasm of skin Multiple benign nevi Benign neoplasm of skin, site unspecified Renal transplant recipient Rosacea documented in this encounter Care Teams Simulation Analyst Relationship Specialty Start Date End Date Carroll Fuentes DO [address] [place] [address] PCP - General 09/23/11 10/20/22 documented as of this encounter
--- OUTSIDE RECORDS SUMMARY | 2024-05-23 13:31 | XMS_ITS | Encounter Summary ---
Author Organization Counts Include [facility] Address [facility] [place] [address] Care Team Providers Care Belt Maker Helper Name Role Phone AlfredoCarroll allison Primary Care Provider [phone] Encounter Details Date Type Department Care Team (Late st Contact Info) Description 08/24/2017 Telephone [place] [id number] Misael Segundo, RN Social History Tobacco Use [...] Segundo, RN - 08/24/2017 2:25 PM EST Grey Goods Tester called to speak with pt regarding his [...] at this time. Misael Segundo RN-BSN Post Industrial Engineering Analyst [facility] Solid Organ Transplant * Telephone Encounter - Misael Segundo RN - 08/24/2017 2:25 PM EST ----- Message from Krysta Perea sent at 08/23/2017 1:25 PM EST ----- Contact: Patient is having hernia outpt surgery at [facility] on . He wants to go over his med list with anurse. List he has re pantoprozole doesn't match what he is taking; says a nurse from here called and change the dose. Please call him. documented in this encounter Plan of Treatment Not on file documented as of this encounter Visit Diagnoses Not on filedocumented in this encounter Care Teams Belt Maker Helper Relationship Specialty Start Date End Date Carroll Fuentes DO [address] [place] [address] PCP - General 09/23/11 10/20/22 documented as of this encounter
--- OUTSIDE RECORDS SUMMARY | 2024-05-23 13:31 | XMS_ITS | Encounter Summary ---
[place] [address] Care Team Providers Care Bronze Chaser Name Role Phone Carroll Fuentes DO Primary Care Provider Reason for Visit * Reason Onset Date Comments Medication Refill 03/01/2018 Encounter Details Date Type Department Care Team (Late st Contact Info) Description 03/01/2018 Refill [place] [address] Crystal Brown, [facility] Social History Tobacco Use Types Packs/Day [...] on filedocumented in this encounter Care Teams Bronze Chaser Relationship Specialty Start Date End Date Carroll Fuentes DO [address] [place] [address] PCP - General 09/23/11 10/20/22 documented as of this encounter
--- OUTSIDE RECORDS SUMMARY | 2024-05-23 13:31 | XMS_ITS | Encounter Summary ---
Author Organization [facility] [place] [address] Care Team Providers Care Factory Helper Name Role Phone AlfredoCarroll allison Primary Care Provider [phone] Encounter Details Date Type Department Care Team (Late st Contact Info) Description 12/29/2017 Refill [place] [address] Crystal Brown CMA Social History Tobacco Use [...] his dosage this AM) -Pharmacy: [phone] [place], [place] - [address] [place] [address] (Now is a [facility]) -Callback Number: [phone] - Maisha (Pharmacist) documented in this encounter Plan of Treatment Not on file documented as of this encounter Visit Diagnoses Not on filedocumented in this encounter Care Teams Factory Helper Relationship Specialty Start Date End Date Carroll Fuentes DO [address] [place] [address] PCP - General 09/23/11 10/20/22 documented as of this encounter
--- OUTSIDE RECORDS SUMMARY | 2024-05-23 13:31 | XMS_ITS | Encounter Summary ---
Author Organization [facility] Address [facility] [place] [address] Care Team Providers Care Compliance Intern Name Role Phone Carroll Fuentes DO Primary Care Provider [phone] Reason for Referral * Diagnostic Test (Routine) - Closed Specialty Diagnoses / Procedures Referred By Contac t Referred To Contact Radiology Diagnoses Renal cell carcinoma, unspecified laterality Procedures CT Chest & Abdomen wo Contrast Jax Mills MD [facility] [place] [address] [facility] [place] [address] Referral ID Status Reason Start Date Expiration Date V isits Requested Visits Authorized [id number] Closed Specialty Service Requested 09/17/2017 12/16/2017 1 1 Reason for Visit * Diagnostic Test (Routine) - Closed Specialty Diagnoses / Procedures Referred By Contac t Referred To Contact Radiology Diagnoses Renal cell carcinoma, unspecified laterality Procedures CT Chest & Abdomen wo Contrast Jax Mills MD [facility] [place] [address] [facility] [place] [address] Referral ID Status Reason Start Date Expiration Date V isits Requested Visits Authorized [id number] Closed Specialty Service Requested 09/17/2017 12/16/2017 1 1 Encounter Details Date Type Department Care Team (Latest Contact Info) Description 09/23/2017 1:54 PM EDT - 09/23/2017 11:59 PM EDT Hospital Encounter CT Scan at [facility] [place] [address] Jax Mills MD [facility] [place] [address] Renal cell carcinoma, unspecified laterality Discharge Disposition: [...] Mediastinum and lupe: No lymphadendopathy. Abdomen LEFT tonto [place] kidney: Interval nephrectomy. RIGHT tonto [place] kidney : Atrophic, unchanged. Transplanted RIGHT pelvic [...] Mediastinum and lupe: No lymphadendopathy. Abdomen LEFT tonto [place] kidney: Interval nephrectomy. RIGHT tonto [place] kidney : Atrophic, unchanged. Transplanted RIGHT pelvic [...] laterality documented in this encounter Care Teams Compliance Intern Relationship Specialty Start Date End Date Carroll Fuentes DO [address] [place] [address] PCP - General 09/23/11 10/20/22 documented as of this encounter
--- OUTSIDE RECORDS SUMMARY | 2024-05-23 13:31 | XMS_ITS | Encounter Summary ---
Author Organization [facility] Address [facility] [place] [address] Care Team Providers Care Hemmer Lockstitch Name Role Phone AlfredoCarroll allison Primary Care Provider Encounter Details Date Type Department Care Team (Latest Contact Info) Description 09/14/2017 8:47 PM EST - 09/14/2017 11:59 PM [facility] Hospital [place] [address] Discharge Disposition: Home Social History Tobacco Use [...] (09/14/2017 10:10 AM EST) Tacrolimus 4.7 ng/mL [facility] Comment: Trough therapeutic: ??5-15 ng/mL Performed by ultra-performance liquid chromatography tandem mass spectrometry (UPLCMS/MS). This test was developed and its performance characteristics determined by [facility]. It has not been cleared or approved [...] CHEMISTRY ORDERAB LES [facility] [place] [address] documented in this encounter Visit Diagnoses Not on filedocumented in this encounter Care Teams Hemmer Lockstitch Relationship Specialty Start Date End Date Carroll Fuentes DO [address] [place] [address] PCP - General 09/23/11 10/20/22 documented as of this encounter
--- OUTSIDE RECORDS SUMMARY | 2024-05-23 13:31 | XMS_ITS | Encounter Summary ---
Author Organization [facility] Address [facility] [place] [address] Care Team Providers Care Hub Bander Name Role Phone Carroll Fuentes DO Primary Care Provider Encounter Details Date Type Department Care Team (Late st Contact Info) Description 09/23/2017 [place] [address] Jax Mills MD [facility] [place] [address] Social History Tobacco Use Types Packs/Day Years [...] on filedocumented in this encounter Care Teams Hub Bander Relationship Specialty Start Date End Date Carroll Fuentes DO [address] [place] [address] PCP - General 09/23/11 10/20/22 documented as of this encounter
--- OUTSIDE RECORDS SUMMARY | 2024-05-23 13:31 | XMS_ITS | Encounter Summary ---
Author Organization [facility] Address [facility] [place] [address] Care Team Providers Care Director Of Occupational Health Name Role Phone AlfredoCarroll allison Primary Care Provider [phone] Reason for Visit * Reason Comments Kidney Cancer Encounter Details Date Type Department Care Team (Late st Contact Info) Description 09/23/2017 3:20 PM EDT Office [place] [address] Jax Mills MD [facility] [place] [address] Renal cell carcinoma, unspecified laterality Social History [...] performed by Miguel Angel Moreno MD at [facility] OR ??? PRO EXC PAROTD, TOTAL, UNILAT RAD NECK Left 02/05/2016 @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, TOTAL, WITH UNILATERAL RADICAL NECK DISSECTION performed by Miguel Angel Moreno MD at [facility] OR ??? PRO EXC SKIN MALIG 3.1-4CM FACE, FACIAL Left 02/05/2016 EXC MALIGNANT LESION, 3.1 TO 4.0CM, FACE performed by Miguel Angel Moreno MD at [facility] OR ? ? PRO EXC SKIN MALIG >4CM TRUNK, ARM, LEG 04/19/2012 EXC MALIGNANT LESION, MICHAEL > 4.0CM, TRUNK performed by SABRINA SANCHEZ at [facility] OR ??? PRO LAP, RADICAL NEPHRECTOMY Left 05/31/2017 @LAPAROSCOPY, RADICAL NEPHRECTOMY (WRVU 25.06) performed by Jax Mills MD at [facility] OR ??? PRO REPAIR INTERMEDIATE S/A/T/E 2.6-7.5 CM 04/19/2012 REPAIR INTERMEDIATE WOUND, (NO HANDS OR FEET) 2.6 TO 7.5CM, UPPER EXTREMITY performed by SABRINA SANCHEZ at [facility] OR ? ? PRO SPLIT GRFT, HEAD, FAC, HAND, FEET <100SQCM N/A 02/20/2016 SPLIT THICKNESS SKIN SPLIT GRAFT,100SQ CM OR LESS, NECK performed by Miguel Angel Moreno MD at [facility] MAIN OR ??? PRO UPPER GI ENDOSCOPY, BIOPSY N/A 05/13/2017 EGD WITH BIOPSY (WRVU 2.49) performed by Aditya Barrera MD at [facility] ENDOSCOPY ??? PRO VASCULAR SURGERY PROCEDURE UNLIST Left 11/20/2015 LIGATION\REPAIR AV FISTULA performed by Camilo Ireland MD at [facility] MAIN OR ??? PRO VASCULAR SURGERY PROCEDURE UNLIST Left 11/20/2015 EXCISION VEIN FROM HAND performed by Camilo Ireland MD at [facility] MAIN OR ??? US RENAL TRANSPLANT BIOPSY 12/31/2010 Social History Social History ??? Marital status: Single Spouse name: N/A ??? Number of children: N/A ??? Years of education: N/A Occupational History ??? [employer] Social History Main Topics ??? Smoking status: [...] Carlos Grubbs Verified: ??06/08/2017 ?Pathologist Performed at: ??-[facility] Dept. of Pathology, [place], [place] DISCUSSION Some morphologic features including oncocytic [...] and will be ??reported separately. ?? A/P: [id number] papillary type 2 RCC, OLIVERIO. Will schedule a CT abdomen and CXR in 6 months. documented in this encounter Plan of Treatment Not on file documented as of this encounter Visit Diagnoses Diagnosis Renal cell carcinoma, unspecified laterality documented in this encounter Care Teams Director Of Occupational Health Relationship Specialty Start Date End Date Carroll Fuentes DO [address] [place] [address] [address] [facility] [address] [place] [address] PCP - General 09/23/11 10/20/22 documented as of this encounter
--- OUTSIDE RECORDS SUMMARY | 2024-05-23 13:31 | XMS_ITS | Encounter Summary ---
Author Organization [facility] [place] [address] Care Team Providers Care Fast Food Delivery Driver Name Role Phone AlfredoCarroll geiger Primary Care Provider [phone] Encounter Details Date Type Department Care Team (Latest Contact Info) Description 01/20/2018 9:00 PM EDT - 01/20/2018 11:59 PM EDT Hospital [place] [address] S/P kidney transplant Discharge Disposition: Home Social [...] (01/21/2018 3:18 PM EDT) Tacrolimus 4.3 ng/mL [facility] Comment: Trough therapeutic: ??5-15 ng/mL Performed by ultra-performance liquid chromatography tandem mass spectrometry (UPLCMS/MS). This test was developed and its performance characteristics determined by [facility]. It has not been cleared or [...] CHEMISTRY ORDERAB LES [facility] [place] [address] documented in this encounter Visit Diagnoses Diagnosis S/P kidney transplant Kidney replaced by transplant documented in this encounter Care Teams Fast Food Delivery Driver Relationship Specialty Start Date End Date Carroll Fuentes DO [address] [place] [address] PCP - General 09/23/11 10/20/22 documented as of this encounter
--- OUTSIDE RECORDS SUMMARY | 2024-05-23 13:31 | XMS_ITS | Encounter Summary ---
Author Organization [facility] Address [facility] [place] [address] Care Team Providers Care Gas Or Petroleum Operator Name Role Phone AlfredoCarroll allison Primary Care Provider [phone] Encounter Details Date Type Department Care Team (Latest Contact Info) Description 12/21/2017 9:20 PM EDT - 12/21/2017 11:59 PM EDT [place] [address] Discharge Disposition: Home Social History Tobacco Use [...] AM EDT) Lavender Hold Sample in lab. [facility] Blood specimen (specimen) No Charge / Unknown 12/21/2017 11:54 AM EDT 12/21/2017 9:34 PM EDT Anup Hawkins MD HEMATOLOGY ORDERA BLES Performing Organization Address [facility] Co de Phone Number [facility] [place] [address] * Tacrolimus level (12/21/2017 11:54 AM EDT) Tacrolimus 7.8 ng/mL [facility] Comment: Trough therapeutic: ??5-15 ng/mL Performed by ultra-performance liquid chromatography tandem mass spectrometry (UPLCMS/MS). This test was developed and its performance characteristics determined by [facility]. It has not been cleared [...] LES Performing Organization Address [facility]/ZIP Co de Phone Number [facility] [place] [address] documented in this encounter Visit Diagnoses Not on filedocumented in this encounter Care Teams Gas Or Petroleum Operator Relationship Specialty Start Date End Date Carroll Fuentes DO [address] [place] [address] PCP - General 09/23/11 10/20/22 documented as of this encounter
--- OUTSIDE RECORDS SUMMARY | 2024-05-23 13:31 | XMS_ITS | Encounter Summary ---
Author Organization [facility] Address [facility] [place] [address] Care Team Providers Care Water Ski Assembler Name Role Phone Carroll Fuentes DO Primary Care Provider [phone] Reason for Visit * Reason Comments Skin Check Encounter Details Date Type Department Care Team (Late st Contact Info) Description 10/14/2017 12:45 PM EDT Office Visit Dermatology at [facility] [address] [place] [address] Chanel Smith MD [facility] [address] [place] [address] History of nonmelanoma skin cancer; Rosacea; [place] [...] weeks. Please contact the Dermatology clinic at [phone] if the lesion has not fully resolved [...] If you have any questions, please call [phone]. documented in this encounter Progress Notes * [...] Hawkins Otolaryngology team: Dr. Miguel Angel Moreno Residential Care Officer: Dr. 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 Marital status: Single Medications: acetaminophen, allopurinol, dilTIAZem, [...] and signed by: Chanel Smith MD Dermatology [facility] documented in this encounter Plan of Treatment Not on file documented as of this encounter Visit Diagnoses Diagnosis History of nonmelanoma skin cancer Personal history of other malignant neoplasm of skin Rosacea [place] (actinic keratosis) Actinic keratosis Multiple benign nevi Benign neoplasm of skin, site unspecified documented in this encounter Care Teams Water Ski Assembler Relationship Specialty Start Date End Date Carroll Fuentes DO [address] [place] [address] PCP - General 09/23/11 10/20/22 documented as of this encounter
--- OUTSIDE RECORDS SUMMARY | 2024-05-23 13:31 | XMS_ITS | Encounter Summary ---
Author Organization [facility] [place] [address] Care Team Providers Care Band Scroll Saw Operator Name Role Phone AlfredoCarroll allison Primary Care Provider [phone] Encounter Details Date Type Department Care Team (Late st Contact Info) Description 07/27/2017 Telephone [place] [address] Crystal Brown CMA Social History Tobacco Use [...] on filedocumented in this encounter Care Teams Band Scroll Saw Operator Relationship Specialty Start Date End Date Carroll Fuentes DO [address] [place] [address] PCP - General 09/23/11 10/20/22 documented as of this encounter
--- OUTSIDE RECORDS SUMMARY | 2024-05-23 13:31 | XMS_ITS | Encounter Summary ---
Author Organization [facility] Address [facility] [place] [address] Care Team Providers Care Replenishment Analyst Name Role Phone AlfredoCarroll allison Primary Care Provider Reason for Visit * Reason Onset Date Comments Medication Refill 08/17/2017 Encounter Details Date Type Department Care Team (Late st Contact Info) Description 08/17/2017 Refill [place] [address] Crystal Brown CMA Social History Tobacco Use [...] pantoprazole 40 mg to be sent to [facility] in [facility]. Call with questions [phone]. Office note from 06/28/17 states S/p Upper GI Bleed: -Hgb trending up --> was 9.1 this AM -patient remains on BID PPI lower dose to 20 mg bid from 40 mg bid documented in this encounter Plan of Treatment Not on file documented as of this encounter Visit Diagnoses Not on filedocumented in this encounter Care Teams Replenishment Analyst Relationship Specialty Start Date End Date Carroll Fuentes DO [address] [place] [address] [address] [facility] 1 [place] [address] PCP - General 09/23/11 10/20/22 documented as of this encounter
--- OUTSIDE RECORDS SUMMARY | 2024-05-23 13:31 | XMS_ITS | Encounter Summary ---
[place] [address] Care Team Providers Care Licensed Home Inspector Name Role Phone Carroll Fuentes DO Primary Care Provider [phone] Reason for Visit * Reason Onset Date Comments Medication Refill 09/08/2017 Encounter Details Date Type Department Care Team (Late st Contact Info) Description 09/08/2017 Refill Solid [place] [address] Crystal Brown, [facility] Social History Tobacco Use Types Packs/Day Years [...] filedocumented in this encounter Care Teams Licensed Home Inspector Relationship Specialty Start Date End Date Carroll Fuentes DO [address] [place] [address] PCP - General 09/23/11 10/20/22 documented as of this encounter
--- OUTSIDE RECORDS SUMMARY | 2024-05-23 13:31 | XMS_ITS | Encounter Summary ---
[place] [address] Care Team Providers Care Instructional Technologist Name Role Phone Carroll Fuentes DO Primary Care Provider Encounter Details Date Type Department Care Team (Late st Contact Info) Description 11/05/2017 Orders Only [place] [address] Crystal Brown CMA Social History Tobacco Use [...] 4:40 PM EDT Standing orders faxed to [facility] at [phone] documented in this encounter Plan of Treatment Not on file documented as of this encounter Visit Diagnoses Not on filedocumented in this encounter Care Teams Instructional Technologist Relationship Specialty Start Date End Date Carroll Fuentes DO [address] [place] [address] PCP - General 09/23/11 10/20/22 documented as of this encounter
--- OUTSIDE RECORDS SUMMARY | 2024-05-23 13:31 | XMS_ITS | Encounter Summary ---
Author Organization [facility] Address [facility] [place] [address] Care Team Providers Care Assembler Tubing Name Role Phone Carroll Fuentes DO Primary Care Provider [phone] Encounter Details Date Type Department Care Team (Late st Contact Info) Description 07/19/2017 Notes Only Dermatology at [facility] [address] [place] [address] Chanel Smith MD [facility] [address] [place] [address] Social History Tobacco Use Types Packs/Day Years [...] Note Adama Ram : [address] [facility] appt: 07/22/2017 Relevant Medical History: Preferred Name: [...] Hawkins Otolaryngology team: Dr. Miguel Angel Moreno Assisted Living Coordinator: Dr. Sage Procedure Screening Questions: Yes/No If [...] on filedocumented in this encounter Care Teams Assembler Tubing Relationship Specialty Start Date End Date Carroll Fuentes DO [address] [place] [address] PCP - General 09/23/11 10/20/22 documented as of this encounter
--- OUTSIDE RECORDS SUMMARY | 2024-05-23 13:31 | XMS_ITS | Encounter Summary ---
Author Organization [facility] Address [facility] [place] [address] Care Team Providers Care Optimization Analyst Name Role Phone Carroll Fuentes DO Primary Care Provider Encounter Details Date Type Department Care Team (Late st Contact Info) Description 10/28/2017 [place] [address] Jax Mills MD [facility] [place] [address] Renal cell carcinoma, unspecified laterality Social History [...] laterality documented in this encounter Care Teams Optimization Analyst Relationship Specialty Start Date End Date Carroll Fuentes DO [address] [place] [address] PCP - General 09/23/11 10/20/22 documented as of this encounter
--- OUTSIDE RECORDS SUMMARY | 2024-05-23 13:31 | XMS_ITS | Encounter Summary ---
Author Organization [facility] Address [facility] [place] [address] Care Team Providers Care Drum Worker Name Role Phone AlfredoCarroll allison DO Primary Care Provider [phone] Encounter Details Date Type Department Care Team (Late st Contact Info) Description 10/19/2017 Telephone [place] [address] Alfonzo Miles MD [facility] [place] [address] Social History Tobacco Use Types Packs/Day Years [...] filedocumented in this encounter Care Teams Drum Worker Relationship Specialty Start Date End Date Carroll Fuentes DO [address] [place] [address] [address] [facility] 1 [place] [address] PCP - General 09/23/11 10/20/22 documented as of this encounter
--- OUTSIDE RECORDS SUMMARY | 2024-05-23 13:31 | XMS_ITS | Encounter Summary ---
Author Organization [facility] [place] [address] Care Team Providers Care Assessment Services Manager Name Role Phone Carroll Fuentes DO Primary Care Provider [phone] Encounter Details Date Type Department Care Team (Late st Contact Info) Description 07/28/2017 Notes Only [place] [address] Beth Soliman RN Social History Tobacco Use [...] on filedocumented in this encounter Care Teams Assessment Services Manager Relationship Specialty Start Date End Date Carroll Fuentes DO [address] [place] [address] PCP - General 09/23/11 10/20/22 documented as of this encounter
--- OUTSIDE RECORDS SUMMARY | 2024-05-23 13:31 | XMS_ITS | Encounter Summary ---
[place] [address] Care Team Providers Care Hr Operations Advisor Name Role Phone Carroll Fuentes DO Primary Care Provider [phone] Reason for Visit * Reason Onset Date Comments Medication Refill 07/23/2017 Encounter Details Date Type Department Care Team (Late st Contact Info) Description 07/23/2017 Refill [place] [address] Crystal Brown, [facility] Social History Tobacco Use Types Packs/Day [...] on filedocumented in this encounter Care Teams Hr Operations Advisor Relationship Specialty Start Date End Date Carroll Fuentes DO [address] [place] [address] PCP - General 09/23/11 10/20/22 documented as of this encounter
--- OUTSIDE RECORDS SUMMARY | 2024-05-23 13:31 | XMS_ITS | Encounter Summary ---
Author Organization [facility] Address [facility] [place] [address] Care Team Providers Care Assembler Engine Name Role Phone AlfredoCarroll allison Primary Care Provider [phone] Reason for Visit * Reason Comments Trauma [...] Expiration Date Visits Re quested Visits Authorized [id number] 1 1 Encounter Details Date Type Department Care Team (Late st Contact Info) Description 04/06/2018 1:45 PM EDT - 04/06/2018 5:03 PM EDT Surgery [place] [address] Lida Peter MD [facility] [place] [address] @REPAIR, RUPTURED AXILLARY OR BRACHIAL ARTERY ANEURYSM [...] epilepsy, and prior TBI who [place] [facility] s/p LUE bleeding with PEA arrest. Description [...] Pt intubated in field. Pt taken to [facility], where second tourniquet applied and pt received 6U PRBC. Transferred [place] [facility] for further care. Of note, per Dr. [...] Studies: none Discharge Conditions/Prognosis: Good [facility] [address] [place] [id number] Discharge Medications: Your Medications New Medications Dose [...] draw weekly CBC/CMP with results sent to [facility] Infectious disease. See wound care instructions below. [...] For any problems or questions please call [phone] YEIMY Fallon, professor of graphic design Nurse Clinician For issues on weeknights after 5pm and weekends please call [phone] and ask for the Vascular Fellow information technology program manager. General Instructions Plastic Surgery Wound Care Instructions [...] about scheduling, please contact our administrative officesat [phone] For clinical questions, please call our nurses at [phone] Both offices are open Wednesday thru Wednesday 8a - 5p. With emergencies after hours, call the hospital ultrasonic welding machine operator at [phone] and ask for the Plastic Surgery Resident information technology program manager. Future Appointments and Orders Future Appointments and Orders Future Appointments Provider Department Dept Phone 05/17/2018 10:20 AM Laina Disla APRN Plastic Surgery at [facility] Arrive at: Shafting Worker Area 4M [phone] 05/17/2018 11:30 AM Kurt Mednia MD Infectious Disease at [facility] Arrive at: Shafting Worker Area 5C [phone] 05/17/2018 12:30 PM Nilda Minaya, professor of graphic design Surgery at [facility] Arrive at: Shafting Worker Area 3V [phone] 05/27/2018 10:15 AM Lida Peter MD Vascular Surgery at [facility] Arrive at: Shafting Worker Area 3V [phone] 08/18/2018 10:30 AM Chanel Smith MD Dermatology at [facility] [place] [address] [phone] Future Orders Complete By Expires OPAT: Order / Recommendation for Post Discharge IV Antibiotic Management [ZEC124 CPT(R)] As directed Process Instructions: If no progress note charted, please enter Clinical details in comments. Scheduling Instructions: Comments: Please Fax all results to: OPAT Program Infectious Disease Section [facility], [place] [address] FAX: Line care instructions per [facility] OPAT Program protocol. After hours, please contact the Infectious Disease Physician information technology program manager at . If this order was signed greater than 72 hours prior to [facility] discharge, please call to confirm the accuracy [...] about scheduling, please contact our administrative officesat [phone] For clinical questions, please call our nurses at [phone] Both offices are open Wednesday thru Wednesday 8a - 5p. With emergencies after hours, call the hospital ultrasonic welding machine operator at [phone] and ask for the Plastic Surgery Resident information technology program manager. * Patient Instructions* Nilda Minaya RN - [...] For any problems or questions please call [phone] YEIMY Fallon, professor of graphic design Nurse Clinician For issues on weeknights after 5pm and weekends please call [phone] and ask for the Vascular Fellow information technology program manager. documented in this encounter Medications at [...] Pt will be transferred at Noon via [facility]. I called pt brother Lucas to inform. He was with JANICE Guzman from [place] [facility]. Our SW Bia spoke with Lucas as well about continuing the LT Medicaid application process. Nurse to Nurse report number given to pt's staff nurse Danny. Discharge envelope started; still needed discharge summary, medication sheets and prescription added. Please call CM if needed for further pt discharge needs. Padmini Ruiz, RN [phone] * Reynaldo Jade - 05/04/2018 8:58 AM EDT Office of Care Management/[employer] Patient Name: Christy Ambrose : 1960 Patient has been offered a SNF bed at [facility] for today, 05/04/18 [facility] arranged for a 12:00 pm transport. Ambulance will need: Medicare ambulance form completed and signed (MD or Archivist RN/SURVEY RESEARCH ASSOCIATE) Copy of patient demographics [place] Out of Hospital DNR/DNI order, if active No MD to MD report necessary Please call Nursing Report to [phone], ask for notereader. Info to accompany patient: Narcotic Prescriptions Copies of Medication Administration Records and IV sheets for past 10 days. Plan: [employer] will be available to the patient and Archivist-RN and/or Social Workerfor further assistance. Patient will be discharged to: [address] [address] Reynaldo Jade, [employer] * Chasidy Monahan PA - 05/04/2018 7:47 [...] PM Nilda Minaya RN [facility] 08/18/2018 10:30 AM Chanel Smith MD [facility] PANCHITO Rios Pager: [phone] * Nayeli Wilde RN - 05/03/2018 8:29 PM EDT Images from the original note were not included. PRN dressing change Dressing prior to change Dressing after change * Natalya Wan MSW - 05/03/2018 5:01 PM EDT SURVEY RESEARCH ASSOCIATE and DONAVAN Chaidez met with Christy, his mother Ilda (HDPOA), and his brother Lucas (HDPOA and FPOA). All three parties accepted a bed offer at [facility] for rehab and hope thatif a bed becomes available at [facility] Christy can be transferred. Family to continue tocomplete Vt Choices for Care and work on unisaw operator supportive living with [facility] when mother goes to assisted living. * Nicole Hamilton LD - 05/03/2018 2:04 PM EDT Nutrition Progress Note Christy Ambrose is a 57 y.o. male Reason for intervention: Follow up Nutrition Recommendations: Could liberalize diet to [facility]Cardiac Continue to monitor potassium trends Monitor weight [...] encounter: 84.3 kg (185 lb 13.6 oz). [place] Body Weight (IBW): [place] body weight: 73.2 kg (161 lb 5.4 [...] intakes. Potassiumnormal, could consider liberalizing diet to [facility]Cardiac. Patient denies any questions/concerns rega rding current [...] by primary team Javier Nolan MD Pager: [phone] * Tristin Marrero MD - 05/03/2018 7:40 [...] ongoing. Angelina Marrero Vascular Surgery, PGY3 Pager #[phone] * Tristin Marrero MD - 05/02/2018 12:35 [...] pending. New Studies None Assessment & Plan Chirsty Ambrose is a 57 y.o. male s/p brachial artery repair following ruptured AVF with subsequent cardiac arrest. Patient continues to make steady progress. L forearm wound now covered with STAG by Plastic Surgery with 100% take. Patient on antibiotic regimen per ID and will plan for 4 weeks OPAT. Appreicate plastic surgery involvement & recommendations. Angelina Marrero Vascular Surgery, PGY3 Pager #[phone] * Chasidy Monahan PA - 05/02/2018 9:16 [...] team PANCHITO Rios Plastic Surgery Team Pager: [phone] * Natalya Jacobsen MD - 05/01/2018 9:15 [...] Aditi Mccollum MD Plastic Surgery Resident P# [phone] * Natalya Jacobsen MD - 04/30/2018 9:23 [...] Aditi Mccollum MD Plastic Surgery Resident P# [phone] * Natalya Jacobsen MD - 04/29/2018 2:00 [...] Wan MSW - 04/29/2018 11:21 AM EDT SURVEY RESEARCH ASSOCIATE spoke with patients mother and Ct [place] [facility] SURVEY RESEARCH ASSOCIATE who are following up today by completingChoices for Care application. Mother told SURVEY RESEARCH ASSOCIATE patient was fully independent until this event. [...] 10:30 AM NURSE, PLASTIC SURGERY [facility] [address] [place] [address] 05/02/2018 12:30 PM Natalya Ojeda MD Leb V [facility] 08/18/2018 10:30 [address] [facility] MD Plastic surgery team pager: [phone] 04/29/2018 6:48 AM * Kumar Schilling - 04/28/2018 2:37 PM EDT Narrative: Visited to introduce and assess acceptance of Photographic Technician services. Pt was awake, alert, oriented [...] Provided emotional, spiritua support and encouraging presence. Photographic Technician services accepted.Conversation to build trusting relationship.Provided [...] 10:30 AM NURSE, PLASTIC SURGERY [facility] [address] [place] [address] CLIN 05/02/2018 12:30 PM Natalya Ojeda MD Leb V Surg [facility] 08/18/2018 10:30 AM Chanel Smith MD [facility] PANCHITO Rios Plastic surgery team pager: [phone] 04/28/2018 8:12 AM Attending: Plan discussed and [...] Danielle Peoples, DO Infectious Disease Fellow Pager [phone] Associated attestation - Kurt Medina MD - [...] team PANCHITO Rios Plastic surgery team pager: [phone] 04/27/2018 8:46 AM Attending: Plan discussed and [...] stable - UOP adequate Thelma Solitario Pager: [phone] 04/27/18 * Domi Norman, RN - 04/26/2018 [...] Note Recommendation/Plan: Diet at MD discretion, consider [facility] diet with K restriction May liberalize to [facility] if K is WNL Appreciate updated weights [...] / appropriate for Occupational Therapy Services. Pager [phone] NICKY Irizarry/John Occupational Therapy Rehabilitation Department * [...] team PANCHITO Rios Plastic surgery team pager: [phone] 04/26/2018 8:01 AM Attending: Pt seen and [...] questions Danielle Peoples, Infectious Disease Fellow Pager [phone] Associated attestation - Kurt Medina MD - [...] skin grafting (04/26) - NPO at [facility] - Obtain consent or OR tomorrow - no need to hold [facility] PANCHITO Rios Plastic surgery team pager: [phone] 04/25/2018 1:10 PM Attending: Plan discussed and [...] 27 27 27 Microbiology ?? Tissue culture [[id number]] (Abnormal) Collected: 04/19/18924 ? Lab Status: Preliminary [...] - skin grafting Wednesday - NPO at [place] Wednesday night - no need to hold [facility] Camden Sol MD Plastic Surgery, [...] 27 27 27 Microbiology ?? Tissue culture [[id number]] (Abnormal) Collected: 04/19/18924 ? Lab Status: Preliminary [...] O: Telephone call received from Rachna Muro ([place] [facility]) who reports that patient's Mother is already assigned to worker Lalitha. Rachna suggested I call Mother and remind her that she has made contact with the agency. Rachna cannot release any information to [facility] without a signed release. Campaign Manager attempted to call Mother today, no answer, [...] PTT 27 27 27 Microbiology Tissue culture [[id number]] (Abnormal) Collected: 04/19/18924 ? Lab Status: Preliminary [...] / appropriate for Occupational Therapy Services. Pager [phone] NICKY Irizarry/John Occupational Therapy Rehabilitation Department * [...] PTT 27 27 27 Microbiology Tissue culture [[id number]] (Abnormal) Collected: 04/19/18924 ? Lab Status: Preliminary [...] continue current immunosuppression regimen. Appreciate input. [facility] Vascular Surgery * Kelsey Tyler, RD [...] encounter: 86.2 kg (190 lb 0.6 oz). [place] Body Weight (IBW): [place] body weight: 73.2 kg (161 lb 5.4 [...] kg (11 lbs). JERICHO Lombardi Beeper #: [phone] * Karis Mejia MSW - 04/20/2018 11:29 AM EDT Discharge Planning: O: Telephone call to patient's Mother Ilda who reports that she was unable to connect with her local [place] [facility]. Unfortunately I believe that Ilda may be overwhelmed by patient's admission and events leading up to hospitalization. Ilda reports that there are repairs that need to be completed in the family home and that a staff member at [facility] (she cannot identify) has told her that patient can not return home. I offered support to Ilda and suggested that I would contact the [place] [facility] and ask them to outreach to her. She was appreciative. Telephone call to Rachna Muro ([facility] [place] [facility] [phone]), voice mail message relaying above information. P: Await call back from Rachna, continue to liaison with Mother and offer support around discharge planning. 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 -No acute indication for WET CROWN BLOCKING OPERATOR ,,Strict intake and out put monitoring,Daily [...] PTT 27 27 27 Microbiology Tissue culture [[id number]] (Abnormal) Collected: 04/19/18924 ? Lab Status: Preliminary [...] regimen. Angelina Marrero Vascular Surgery, PGY3 Pager #[phone] * Karuna Nagel, RN - 04/19/2018 10:28 [...] today. Angelina Marrero Vascular Surgery, PGY3 Pager #[phone] * Selma Fontanez PHP WEB DEVELOPER - 04/18/2018 2:14 PM EDT Physical Therapy Note Patient having bedside vac change with pain meds. Will follow up with patient tomorrow. Selma Fontanez PTA Pager# [phone] * Tristin Marrero MD - 04/18/2018 12:22 [...] kidney disease. - No acute indication for WET CROWN BLOCKING OPERATOR, Strict intake and out put monitoring, [...] kidney disease. - No acute indication for WET CROWN BLOCKING OPERATOR, Strict intake and out put monitoring, [...] performed by Miguel Angel Moreno MD at [facility] MAIN OR ??? PRO DECOMPRESS FOREARM, BRACH ART EXPLOR Left 04/06/2018 FASCIOTOMY, FOREARM, WITH BRACHIAL ARTERY EXPLORATION (WRVU 8.41) performed by Lida Peter MDat [facility] MAIN OR ??? PRO DIRECT REPAIR RUPTURED ANEURYSM, AXILLO-BRACHIAL ARM INCIS Left 04/06/2018 @REPAIR, RUPTURED AXILLARY OR BRACHIAL ARTERY ANEURYSM BY ARM INCISION (WRVU *) performed by Lida Peter MD at [facility] MAIN OR ??? PRO EXC PAROTD, TOTAL, UNILAT RAD NECK Left 02/05/2016 @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, TOTAL, WITH UNILATERAL RADICAL NECK DISSECTION performed by Miguel Angel Moreno MD at [facility] MAIN OR ??? PRO EXC SKIN MALIG 3.1-4CM FACE, FACIAL Left 02/05/2016 EXC MALIGNANT LESION, 3.1 TO 4.0CM, FACE performed by Miguel Angel Moreno MD at [facility] OR ? ? PRO EXC SKIN MALIG >4CM TRUNK, ARM, LEG 04/19/2012 EXC MALIGNANT LESION, MICHAEL > 4.0CM, TRUNK performed by SABRINA MEDRANO at [facility] OR ??? PRO LAP, RADICAL NEPHRECTOMY Left 05/31/2017 @LAPAROSCOPY, RADICAL NEPHRECTOMY (WRVU 25.06) performed by Jax Mills MD at [facility] OR ??? PRO REBL VES GRAFT, UP EXTREM Left 04/06/2018 REPAIR BLOOD VESSEL WITH GRAFT OTHER THAN VEIN, UPPER EXTREMITY (WRVU 15.83) performed by Lida Peter MD at [facility] MAIN OR ??? PRO RELIEVE PRESSURE ON NERVE(S) Left 04/06/2018 (MSURG) CARPAL TUNNEL (WRVU 4.82) performed by Hay Sparks MD at [facility] MAIN OR ??? PRO REPAIR INTERMEDIATE S/A/T/E 2.6-7.5 CM 04/19/2012 REPAIR INTERMEDIATE WOUND, (NO HANDS OR FEET) 2.6 TO 7.5CM, UPPER EXTREMITY performed by SABRINA MEDRANO at [facility] OR ? ? PRO REPAIR INTERMEDIATE S/A/T/E > 30.0 CM Left 04/14/2018 REPAIR INTERMEDIATE WOUND, (NO HANDS OR FEET) >30.0CM, UPPER EXTREMITY (WRVU 5) performed by Yimi Easton MD at [facility] MAIN OR ??? PRO REVISE MEDIAN N/CARPAL TUNNEL SURG Left 04/06/2018 MEDIAN NERVE DECOMPRESSION (CARPAL TUNNEL RELEASE) (WRVU 4.97) performed by Lida Peter MD [facility] MAIN OR ? ? PRO SPLIT GRFT, HEAD, FAC, HAND, FEET <100SQCM N/A 02/20/2016 SPLIT THICKNESS SKIN SPLIT GRAFT,100SQ CM OR LESS, NECK performed by Miguel Angel Moreno MD at [facility] MAIN OR ??? PRO UPPER GI ENDOSCOPY, BIOPSY N/A 05/13/2017 EGD WITH BIOPSY (WRVU 2.49) performed by Aditya Barrera MD at [facility] ENDOSCOPY ??? PRO VASCULAR SURGERY PROCEDURE UNLIST Left 11/20/2015 LIGATION\REPAIR AV FISTULA performed by Camilo Ireland MD at [facility] MAIN OR ??? PRO VASCULAR SURGERY PROCEDURE UNLIST Left 11/20/2015 EXCISION VEIN FROM HAND performed by Camilo Ireland MD at [facility] MAIN OR ??? US RENAL TRANSPLANT BIOPSY 12/31/2010 Reason for Nutrition Intervention: Initial assessment Diet Order: Regular Appetite: Good Food allergies: None documented Chewing/Swallowing difficulty: none, cleared for regular diet and thin liquids per COMMERCIAL TRUCK DRIVER Estimated body mass index is 28.91 kg/(m^2) [...] being worked up for possible intracranial event. COMMERCIAL TRUCK DRIVER cleared patient for regular diet and thin liquids. Patient has been tolerating this well, but per RN this morning he did not eat d/t nausea. Thiscould be attributed to pain meds on empty stomach. COMMERCIAL TRUCK DRIVER and OT in with patient at time of attempt this morning, will check back in afternoon. Patient seen this afternoon having eaten ~50% of his lunch, appeared to still be eating as well. Hehas difficulty recalling his diet PHP WEB DEVELOPER. He is not sure if he has [...] kidney disease. - No acute indication for WET CROWN BLOCKING OPERATOR, Strict intake and out put monitoring, [...] kidney disease. - No acute indication for WET CROWN BLOCKING OPERATOR, Strict intake and out put monitoring, Daily weights, Renal dosing for medications - Hypertension: was on hydralazine 50 mg BID,diltiazem 120 mg XT daily ,metorpolol 50 mg TID,losartan 25 mg daily at home.Will recommend to restart his home meds and continue holding losartan in the setting of TRISTIAN. iTm Ogden MD * Karis Mejia, SURVEY RESEARCH ASSOCIATE - 04/13/2018 1:17 PM EDT O: Requested by CANDY to continue to communicate with Mother re discharge planning. Campaign Manager spoke with Mother today who is glad to hear that patient is progressing. Mother has an appointment on 04/15/18 with the [place] [facility] to discuss [place] LTC. She also had questions about filing for SSDI for patient. Campaign Manager suggested that she contact with ANTHONY Roy officeand make an appointment to speak with someone there. 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 1.Renal transplant with CKD stage IV: -S/p DDTXP in 2002 with post transplant course complicated by delayed graft function,recurrence of IgA and prograf toxicity been stable with CKD IV with baseline creatinine -2.3 -2.6 .He also had laparoscopic left nansemond indian tribe nephrectomy due to papillary renal cell ca [...] chronic kidney disease. -No acute indication for WET CROWN BLOCKING OPERATOR ,,Strict intake and out put monitoring,Daily [...] kidney disease. - No acute indication for WET CROWN BLOCKING OPERATOR, Strict intake and out put monitoring, Daily weights, Renal dosing for medications - Hypertension: was on hydralazine 50 mg BID,diltiazem 120 mg XT daily ,metorpolol 50 mg TID,losartan 25 mg daily at home.Will recommend to restart his home meds and continue holding losartan in the setting of TRISTIAN. Tim Ogden MD * Ajay Alexandre - 04/12/2018 2:08 PM EDT Photographic Technician Encounter Note Patient Name: Christy Ambrose : [id number] MR#: [id number] Admit Date: 04/06/2018 12:58 PM Hospital Day 6 days Narrative: Seen on reimbursement auditor Rounds. Sitting in recliner. Cordial. Expression bemused, [...] chronic kidney disease. -No acute indication for WET CROWN BLOCKING OPERATOR, Strict intake and out put monitoring, Daily weights, Renal dosing formedications - Hypertension: was on hydralazine 50 mg BID,diltiazem 120 mg XT daily ,metorpolol 50 mg TID,losartan 25 mg daily at home.Will recommend to restart his home meds and continue holding losartan in the setting of TRISTIAN. 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 -No acute indication for WET CROWN BLOCKING OPERATOR ,,Strict intake and out put monitoring,Daily [...] 04/11/2018 Neurology resident, PGY-3 Vascular Neurology Pager [phone] Associated attestation - Tim Collins MD - [...] treatment session. Kelsey Hua, PT Pager # [phone] PT Evaluation Code Rationale: ?? Diagnosis [...] Assessment/Treatment Assistive Device (Bed Mobility) bed rails [id number] [place] (Bed Mobility) minimum assist (75% patient effort) Comment (Bed Mobility) HOB elevated Transfer Assessment/Treatment [place] (Sit-Stand Transfers) moderate assist (50% patient effort);verbal cues required;2 person assist required [place] (Stand-Sit Transfers) moderate assist (50% patient effort);verbal cues required;2 person assist required Ndd-Ykfbk-Cwy Assistive Device (Transfers) rolling walker (initially transfered mod x2 w/o AD, poor balance) Safety Issues (Transfers) loses balance backward (lost balance forward initially) Impairments (Transfers) balance impaired;strength decreased;pain Comment (Transfers) cues for hand placement on RW Gait Assessment/Treatment [place] (Gait) moderate assist (50% patient effort);verbal cues [...] good balance Sitting Balance: Dynamic fair balance Eha-ph-Abmhf Balance poor balance Standing Balance: Static poor [...] to sit/sit to sidelying Bed Mobility Goal, [place] Level independent Gait Training Goal Gait Training Goal, Date Established 04/11/18 Gait Training Goal, Time to Achieve 2 wks Gait Training Goal, [place] Level independent Gait Training Goal, Assist Device other (see comments) (LRD ) Gait Training Goal, Distance to Achieve 150 ft Transfer Training Goal Transfer Training Goal, Date Established 04/11/18 Transfer Training Goal, Time to Achieve 2 wks Transfer Training Goal, Activity Type all transfers Transfer Train Goal, [place] Level independent Transfer Training Goal, Assist Device [...] treatment session. Kelsey Hua PT Pager # [phone] * Karis Mejia SURVEY RESEARCH ASSOCIATE - 04/11/2018 1:15 PM EDT Discharge Planning: O: Requested by CANDY-RN to contact Mother re her concerns around housing. Campaign Manager spoke with Mother who relayed that she [...] and plans to speak with her local [place] [facility]. Campaign Manager suggested to Mother that she begin to have a conversation with them around [place] as that would be the payor source for patient. Mother is also interested in finding out what the discharge plan will be. Campaign Manager relayed that a CM-RN would be in [...] with Transplant Nephrology/[facility] today Tim Ogden MD * Odalis [...] MD/NEHA, PGY-5 Section of Vascular Surgery, Pager [phone] * Tim Ogden MD - 04/10/2018 10:57 [...] seizure management Tim Ogden MD * Tim Ogdne MD - 04/10/2018 10:53 AM EDT INPATIENT [...] 04/09/2018 Neurology resident, PGY-4 Vascular Neurology Pager [phone] ... I saw and evaluated the patient [...] MD/NEHA, PGY-5 Section of Vascular Surgery, Pager [phone] * Alfonzo Miles MD - 04/08/2018 4:56 [...] initiated. Alfonzo Miles MD [place] [address] Pager: [phone], #[phone] Email: [email or web address] * Sharmin Barth RN - 04/08/2018 12:34 PM EDT [facility] RESPONSE TEAM NOTE Name: Christy Ginna Ambrose Age: 57 y.o. Sex; Male Date of : 1960 Responding Members: BENJAMIN ROGEL RCP Date/Time of Admission: 04/06/2018 12:58 PM Unit/Room: 427 4W Service: Vascular sx Attending: [place] Superintendent present? Yes Attending Contacted? Yes Time Activated: [...] any questions. 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 in May 2017, suspected DVT on anticoagulation therapy with the Coumadin transferred from [facility] to [facility] [place] 04/06[place]18 for hemorrhagic shock status post [...] Latest Ref Range: Clear Hazy (A) Spec Bern UA Latest Ref Range: 1.002 - 1.030 [...] can not be managed medically needing emergent WET CROWN BLOCKING OPERATOR.No indication for dialysis/CVVH -Had good U.out [...] tolerated to keep BP stable .currently on [id number] mg BID and hydralazine,labetolol IV prn #5.Ruptured [...] vascular,neurology teams Radha Hughes MD Nephrology Fellow #[phone] * Veronica Holt RN - 04/08/2018 9:47 [...] HTN, epilepsy,and prior TBI who [place] [facility] s/p LUE bleeding with PEA arrest. Description [...] Pt intubated in field. Pt taken to [facility], where second tourniquet applied and pt received 6U PRBC. Transfer[place] [facility] [place] care. ?? Of note, per [...] performed by Miguel Angel Moreno MD at [facility] MAIN OR ??? PRO DECOMPRESS FOREARM, BRACH ART EXPLOR Left 04/06/2018 FASCIOTOMY, FOREARM, WITH BRACHIAL ARTERY EXPLORATION (WRVU 8.41) performed by Lida Peter, Laureent [facility] MAIN OR ??? PRO DIRECT REPAIR RUPTURED ANEURYSM, AXILLO-BRACHIAL ARM INCIS Left 04/06/2018 @REPAIR, RUPTURED AXILLARY OR BRACHIAL ARTERY ANEURYSM BY ARM INCISION (WRVU *) performed by Lida Peter MD at [facility] MAIN OR ??? PRO EXC PAROTD, TOTAL, UNILAT RAD NECK Left 02/05/2016 @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, TOTAL, WITH UNILATERAL RADICAL NECK DISSECTION performed by Miguel Angel Moreno MD at [facility] MAIN OR ??? PRO EXC SKIN MALIG 3.1-4CM FACE, FACIAL Left 02/05/2016 EXC MALIGNANT LESION, 3.1 TO 4.0CM, FACE performed by Miguel Angel Moreno MD at [facility] OR ? ? PRO EXC SKIN MALIG >4CM TRUNK, ARM, LEG 04/19/2012 EXC MALIGNANT LESION, MICHAEL > 4.0CM, TRUNK performed by SABRINA MEDRANO at [facility] OR ??? PRO LAP, RADICAL NEPHRECTOMY Left 05/31/2017 @LAPAROSCOPY, RADICAL NEPHRECTOMY (WRVU 25.06) performed by Jax Mills MD at [facility] MAIN OR ??? PRO REBL VES GRAFT, UP EXTREM Left 04/06/2018 REPAIR BLOOD VESSEL WITH GRAFT OTHER THAN VEIN, UPPER EXTREMITY (WRVU 15.83) performed by Lida Peter MD at [facility] OR ??? PRO RELIEVE PRESSURE ON NERVE(S) Left 04/06/2018 (MSURG) CARPAL TUNNEL (WRVU 4.82) performed by Hay Sparks MD at [facility] OR ??? PRO REPAIR INTERMEDIATE S/A/T/E 2.6-7.5 CM 04/19/2012 REPAIR INTERMEDIATE WOUND, (NO HANDS OR FEET) 2.6 TO 7.5CM, UPPER EXTREMITY performed by SABRINA MEDRANO at [facility] OR ??? PRO REVISE MEDIAN N/CARPAL TUNNEL SURG Left 04/06/2018 MEDIAN NERVE DECOMPRESSION (CARPAL TUNNEL RELEASE) (WRVU 4.97) performed by Lida Peter MD [facility] MAIN OR ? ? PRO SPLIT GRFT, HEAD, FAC, HAND, FEET <100SQCM N/A 02/20/2016 SPLIT THICKNESS SKIN SPLIT GRAFT,100SQ CM OR LESS, NECK performed by Miguel Angel Moreno MD at [facility] MAIN OR ??? PRO UPPER GI ENDOSCOPY, BIOPSY N/A 05/13/2017 EGD WITH BIOPSY (WRVU 2.49) performed by Aditya Barrera MD at [facility] ENDOSCOPY ??? PRO VASCULAR SURGERY PROCEDURE UNLIST Left 11/20/2015 LIGATION\REPAIR AV FISTULA performed by Camilo Ireland MD at [facility] MAIN OR ??? PRO VASCULAR SURGERY PROCEDURE UNLIST Left 11/20/2015 EXCISION VEIN FROM HAND performed by Camilo Ireland MD at [facility] MAIN OR ??? 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 [...] epilepsy, and prior TBI who [place] [facility] [place]/p hemorrhagic shock and PEA arrest from [...] care per primary Vascular team. Please page #[phone] for any further questions or concerns. Procedures: [...] and tender to touch. Pt transferred to [facility] with all belongings. Report given to oncoming RN. * Natalya Minaya MD - 04/08/2018 12:59 PM EDT Critical Care - Admission Note History of Present Illness: Christy Ambrose is a 57 y/o M w/ PMH developmental delay, epilepsy, IGA nephropathy (s/p renal transplant 2002, on tac & mycophenalate) left nansemond indian tribe nephrectomy (2016), HTN who was found down on 04/06 at his home w/ bleeding from L AVF. He had PEA arrest, ROSC w/ chest compressions, 1 dose epi. Tourniquet applied to L arm in field, pt intubated and brought to [facility]. Received 6 units PRBC & transferred [place] [facility] On arrival GCS 11, taken to OR [...] ml/min N18.4 ??? 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 sales development representative current use of immunosuppressive drug Z79.899 [...] by Miguel Angel Moreno MD at [facility] OR ??? PRO DECOMPRESS FOREARM, BRACH ART EXPLOR Left 04/06/2018 FASCIOTOMY, FOREARM, WITH BRACHIAL ARTERY EXPLORATION (WRVU 8.41) performed by Lida Peter MDat [facility] OR ??? PRO DIRECT REPAIR RUPTURED ANEURYSM, AXILLO-BRACHIAL ARM INCIS Left 04/06/2018 @REPAIR, RUPTURED AXILLARY OR BRACHIAL ARTERY ANEURYSM BY ARM INCISION (WRVU *) performed by Lida Peter MD at [facility] OR ??? PRO EXC PAROTD, TOTAL, UNILAT RAD NECK Left 02/05/2016 @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, TOTAL, WITH UNILATERAL RADICAL NECK DISSECTION performed by Miguel Angel Moreno MD at [facility] OR ??? PRO EXC SKIN MALIG 3.1-4CM FACE, FACIAL Left 02/05/2016 EXC MALIGNANT LESION, 3.1 TO 4.0CM, FACE performed by Miguel Angel Moreno MD at [facility] OR ? ? PRO EXC SKIN MALIG >4CM TRUNK, ARM, LEG 04/19/2012 EXC MALIGNANT LESION, MICHAEL > 4.0CM, TRUNK performed by SABRINA MEDRANO at [facility] OR ??? PRO LAP, RADICAL NEPHRECTOMY Left 05/31/2017 @LAPAROSCOPY, RADICAL NEPHRECTOMY (WRVU 25.06) performed by Jax Mills MD at [facility] OR ??? PRO REBL VES GRAFT, UP EXTREM Left 04/06/2018 REPAIR BLOOD VESSEL WITH GRAFT OTHER THAN VEIN, UPPER EXTREMITY (WRVU 15.83) performed by Lida Peter MD at [facility] OR ??? PRO RELIEVE PRESSURE ON NERVE(S) Left 04/06/2018 (MSURG) CARPAL TUNNEL (WRVU 4.82) performed by Hay Sparks MD at [facility] MAIN OR ??? PRO REPAIR INTERMEDIATE S/A/T/E 2.6-7.5 CM 04/19/2012 REPAIR INTERMEDIATE WOUND, (NO HANDS OR FEET) 2.6 TO 7.5CM, UPPER EXTREMITY performed by SABRINA MEDRANO at [facility] MAIN OR ??? PRO REVISE MEDIAN N/CARPAL TUNNEL SURG Left 04/06/2018 MEDIAN NERVE DECOMPRESSION (CARPAL TUNNEL RELEASE) (WRVU 4.97) performed by Lida Peter MD [facility] MAIN OR ? ? PRO SPLIT GRFT, HEAD, FAC, HAND, FEET <100SQCM N/A 02/20/2016 SPLIT THICKNESS SKIN SPLIT GRAFT,100SQ CM OR LESS, NECK performed by Miguel Angel Moreno MD at [facility] MAIN OR ??? PRO UPPER GI ENDOSCOPY, BIOPSY N/A 05/13/2017 EGD WITH BIOPSY (WRVU 2.49) performed by Aditya Barrera MD at [facility] ENDOSCOPY ??? PRO VASCULAR SURGERY PROCEDURE UNLIST Left 11/20/2015 LIGATION\REPAIR AV FISTULA performed by Camilo Ireland MD at [facility] MAIN OR ??? PRO VASCULAR SURGERY PROCEDURE UNLIST Left 11/20/2015 EXCISION VEIN FROM HAND performed by Camilo Ireland MD at [facility] MAIN OR ??? US RENAL [...] INR ON 06/08. FOLLOW UP WITH DR GARICA'S OFFICE. Taking ??? 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 [...] 7.27* PO2ART 65* 152* 168* 228* 379* [id number] 31* 34* 39 40 36 BEART -11.8* [...] with Custom Additives 50 mL/hr at 04/07/18 7589 Procedure Component Value Units Date/Time ? Body Fluid Culture, Aerobic & Anaerobic Fluid [[id number]] Collected: 04/06/18 1415 ? Lab Status: Preliminary result Specimen: Fluid Updated: 04/07/18 1332 ? Body Fluid Culture, Aerobic [[id number]] Collected: 04/06/18 1415 ? Lab Status: Preliminary result Specimen: Fluid Updated: 04/07/18 0804 ? Body Fluid Culture Few normal cutaneous shaina ? Gram Stain -- ? Few Neutrophils seen No microorganisms seen. ? Anaerobic Culture [[id number]] Collected: 04/06/18 1415 ? Lab Status: Preliminary [...] can not be managed medically needing emergent WET CROWN BLOCKING OPERATOR.No indication for dialysis/CVVH -Had good U.out [...] tolerated to keep BP stable .currently on iozwjjbokp12 mg BID and hydralazine,labetolol IV prn ?? [...] Disposition: Critical Care Red 1 Team (pager [phone]) Natalya Minaya MD 04/08/2018 * Erwin Marino MD - 04/06/2018 5:03 PM EDT Critical Care - Admission Note History of Present Illness: Christy Ambrose is a 57 y.o. male with PMH of HTN, TBI w/ epilepsy, gout, IgA nephropathy s/p donor renal transplant 2002 (on tacrolimus and cellcept) complicated by delayed graft function andrecurrent IgA nephropathy and Prograf toxicity, laparoscopic L [place]sem[place] indian tribe radical nephrectomy May 2017 for papillary carcinoma, HTN, previous revision of L AVF due to massive size. Recently put on coumadin for infection of left forearm with swelling, suspected to be DVT. Pres[place] [facility] [place]agic shock s/p PEA arrest secondary [...] by Miguel Angel Moreno MD at [facility] OR ??? PRO EXC PAROTD, TOTAL, UNILAT RAD NECK Left 02/05/2016 @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, TOTAL, WITH UNILATERAL RADICAL NECK DISSECTION performed by Miguel Angel Moreno MD at [facility] OR ??? PRO EXC SKIN MALIG 3.1-4CM FACE, FACIAL Left 02/05/2016 EXC MALIGNANT LESION, 3.1 TO 4.0CM, FACE performed by Miguel Angel Moreno MD at [facility] OR ? ? PRO EXC SKIN MALIG >4CM TRUNK, ARM, LEG 04/19/2012 EXC MALIGNANT LESION, MICHAEL > 4.0CM, TRUNK performed by SABRINA MEDRANO at [facility] OR ??? PRO LAP, RADICAL NEPHRECTOMY Left 05/31/2017 @LAPAROSCOPY, RADICAL NEPHRECTOMY (WRVU 25.06) performed by Jax Mills MD at [facility] OR ??? PRO REPAIR INTERMEDIATE S/A/T/E 2.6-7.5 CM 04/19/2012 REPAIR INTERMEDIATE WOUND, (NO HANDS OR FEET) 2.6 TO 7.5CM, UPPER EXTREMITY performed by SABRINA MEDRANO at [facility] OR ? ? PRO SPLIT GRFT, HEAD, FAC, HAND, FEET <100SQCM N/A 02/20/2016 SPLIT THICKNESS SKIN SPLIT GRAFT,100SQ CM OR LESS, NECK performed by Miguel Angel Moreno MD at [facility] MAIN OR ??? PRO UPPER GI ENDOSCOPY, BIOPSY N/A 05/13/2017 EGD WITH BIOPSY (WRVU 2.49) performed by Aditya Barrera MD at [facility] ENDOSCOPY ??? PRO VASCULAR SURGERY PROCEDURE UNLIST Left 11/20/2015 LIGATION\REPAIR AV FISTULA performed by Camilo Ireland MD at [facility] MAIN OR ??? PRO VASCULAR SURGERY PROCEDURE UNLIST Left 11/20/2015 EXCISION VEIN FROM HAND performed by Camilo Ireland MD at [facility] MAIN OR ??? 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 [...] mcL Appearance UA Hazy (A) Clear Spec Bern UA 1.023 1.002 - 1.030 Color UA [...] No microorganisms seen. Radiology: XR Chest and [id number] 04/06 Prominence of the superior mediastinum may [...] Ambrose Level of Activation: Trauma 9 MR#: [id number] [ ]Scene Call or [X]Hospital Transfer : [id number] CC/MECHANISM OF INJURY: 57 y.o. Male s/p [...] HTN, epilepsy,and prior TBI who [place] [facility] [place]/p LUE bleeding with PEA arrest. Description [...] Pt intubated in field. Pt taken to [facility], where second tourniquet applied and pt received 6U PRBC. Transferred [place] [facility] [place] further care. Of note, per Dr. [...] by Miguel Angel Moreno MD at [facility] OR ??? PRO EXC PAROTD, TOTAL, UNILAT RAD NECK Left 02/05/2016 @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, TOTAL, WITH UNILATERAL RADICAL NECK DISSECTION performed by Miguel Angel Moreno MD at [facility] OR ??? PRO EXC SKIN MALIG 3.1-4CM FACE, FACIAL Left 02/05/2016 EXC MALIGNANT LESION, 3.1 TO 4.0CM, FACE performed by Miguel Angel Moreno MD at [facility] OR ? ? PRO EXC SKIN MALIG >4CM TRUNK, ARM, LEG 04/19/2012 EXC MALIGNANT LESION, MICHAEL > 4.0CM, TRUNK performed by SABRINA MEDRANO at [facility] OR ??? PRO LAP, RADICAL NEPHRECTOMY Left 05/31/2017 @LAPAROSCOPY, RADICAL NEPHRECTOMY (WRVU 25.06) performed by Jax Mills MD at [facility] OR ??? PRO REPAIR INTERMEDIATE S/A/T/E 2.6-7.5 CM 04/19/2012 REPAIR INTERMEDIATE WOUND, (NO HANDS OR FEET) 2.6 TO 7.5CM, UPPER EXTREMITY performed by SABRINA MEDRANO at [facility] OR ? ? PRO SPLIT GRFT, HEAD, FAC, HAND, FEET <100SQCM N/A 02/20/2016 SPLIT THICKNESS SKIN SPLIT GRAFT,100SQ CM OR LESS, NECK performed by Miguel Angel Moreno MD at [facility] MAIN OR ??? PRO UPPER GI ENDOSCOPY, BIOPSY N/A 05/13/2017 EGD WITH BIOPSY (WRVU 2.49) performed by Aditya Barrera MD at [facility] ENDOSCOPY ??? PRO VASCULAR SURGERY PROCEDURE UNLIST Left 11/20/2015 LIGATION\REPAIR AV FISTULA performed by Camilo Ireland MD at [facility] MAIN OR ??? PRO VASCULAR SURGERY PROCEDURE UNLIST Left 11/20/2015 EXCISION VEIN FROM HAND performed by Camilo Ireland MD at [facility] MAIN OR ??? 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 [...] Normal RBC Morphology Abnormal Ovalocytes 1-5 /HPF Webster Cells 1-5 /HPF Rapid Drug Screen, Urine [...] mcL Appearance UA Hazy (A) Clear Spec Bern UA 1.023 1.002 - 1.030 Color UA [...] epilepsy, and prior TBI who [place] [facility] [place]/p LUE bleeding with PEA arrest now [...] to the planned procedure. Hand Hygiene: The wallpaper inspector did perform hand hygiene prior to line insertion. Catheter type: PICC Lot number: [id number] Procedure Technique: Skin was prepped with chlorhexidine. [...] vac dressing completed. Left forearm wound measures [id number] with clean, well granulated base. PANCHITO Eng [...] Zavaleta MD - 04/09/2018 9:03 AM EDT [facility] Department of Neurology Critical Care [...] in the Intensive Care Unit by the [facility] Clinical Neurophysiology Laboratory. The 10/20 international system [...] EDTAssociated Order(s): EEG AWAKE, ASLEEP, DROWSY [facility] Department of Neurology In Patient [...] tablet 50 mg 50 mg Oral Q8H [facility] Angelika Aguilera PA 50 mg at 04/08/18 [...] channel digitized electroencephalogram was performed in the [facility] Clinical Neurophysiology Laboratory. The 10/20 international system of electrode placement was used and bipolar and referential electrode montages were recorded. In addition to EEG the patient was monitored for EKGand lateral/vertical eye movements. Video was recorded during the session. The duration of the recording was 30 minutes. BATTER MIXER'S REPORT: Performed by: AT Patient was not [...] with patient to update him that [facility] in [place], [place] is reviewing him for possible admission this week. Pt was appreciative for this news. Pt [facility] filed for [facility]. Pt's staff nurse Lalitha mensah. I was going to call pt's brother Lucas to discuss. SURVEY RESEARCH ASSOCIATE Sandeep Wan had just talked with pt's brother and mother Ilda and informed me that a tentative family meeting has been set up for tomorrow at 3:00 pm. CM will be part of the meeting; will continue to follow. Padmini Ruiz, RN [phone] * Plan of Care - Naz Robbins [...] 04/30/18 1903 Health Knowledge, Opportunity to Enhance (Adult,NICU,Warne,Obstetrics,Pediatric) Knowledgeable about Health Subject/Topic making progress toward [...] PRN PICC dressing change completed as per [facility] protocol. yes Positive pressure displacement connector (Max [...] none Problem: Health Knowledge, Opportunity to Enhance (Adult,NICU,Warne,Obstetrics,Pediatric) Goal: Knowledgeable about Health Subject/Topic Patient will demonstrate the desired outcomes by discharge/transition of care. Outcome: Ongoing (Interventions Implemented as Appropriate) 04/30/18 1903 Health Knowledge, Opportunity to Enhance (Adult,NICU,Warne,Obstetrics,Pediatric) Knowledgeable about Health Subject/Topic making progress toward [...] 04/27/2018 3:19 PM EDT OFFICE OF CARE MANAGEMENT/Archivist/PROGRESS NOTE e-DH reviewed. Report received from vascular. [...] broughthim in. 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 [...] Assessment/Treatment Assistive Device (Bed Mobility) bed rails [id number]-[id number] [place] (Bed Mobility) conditional independence Impairments (Bed Mobility) flexibility decreased;ROM (range of motion) decreased;strength decreased Comment (Bed Mobility) HOB slightyly elevated; vc's to adjust HOB Transfer Assessment/Treatment Chair-Bed [place] (Transfers) contact guard assist [place] (Sit-Stand Transfers) contact guard assist [place] (Stand-Sit Transfers) contact guard assist [place] (Toilet Transfers) (pt continues to report ambulating to bathrom for toileting) Impairments (Transfers) balance impaired;ROM (range of motion) decreased;strength decreased Gait Assessment/Treatment [place] (Gait) contact guard assist Assistive Device (Gait) gait belt Distance in Feet (Gait) 750' Safety Issues (Gait) balance decreased during turns;step length decreased Impairments (Gait) balance impaired;coordination impaired Comment (Gait) mild ataxia; no lob noted; assist to carry wound vac Lower Body Dressing Assessment/Training Position (LB Dressing) standing [place] Level (LB Dressing) contact guard assist Impairments [...] good balance Sitting Balance: Dynamic fair balance Nxd-vh-Vfojd Balance fair balance Standing Balance: Static fair [...] ?? I have met with the patient/sales support representative to discuss discharge planning needs. I have provided the [facility], Office of Care Management letter from the Specimen Processor pertaining to rehab referrals. I have also provided a letter describing our affiliations within the [facility] and educated them about their right to choose where referrals are placed. ?? I reviewed the different levels of rehab including SNF, swing, acute and LTAC with the patient/sales support representative. ?? The patient/sales support representative has been provided a list of facilities within their preferred geographic area. ?? I have requested that the patient/sales support representative provide at least three choices for referral. ?? The patient/sales support representative have requested referrals to: ?? 1. [facility] ?? 2. [facility] ?? 3. [facility]. View ?? Expected date of discharge: 3-5 days Note routed to [employer] who will communicate referrals to facilities and provide any required information. * Plan of Care - Helen Denny RN - 04/27/2018 10:22 AM EDT Problem: Health Knowledge, Opportunity to Enhance (Adult,NICU,Warne,Obstetrics,Pediatric) Goal: Knowledgeable about Health Subject/Topic Patient will demonstrate the desired outcomes by discharge/transition of care. Peripherally Inserted Central Catheter (PICC) Teaching Sheet Peripherally inserted central catheters (ehnv-wd-jjyg) (PICC) are used when you need IV [...] midline catheter? PICC lines are used for unisaw operator treatments. PICC lines may be used [...] can be set up via the nurse Archivist to help you. What are possible complications [...] Vascular Access Device Selection, Insertion, and Management, about.me Access Systems 04/15. A Review of the Efficacy, Safety, Use, and Administration of [employer], [employer] 2005 * Plan of Care - [...] Sparks MD - 04/26/2018 12:40 PM EDT [facility] Operative Note Patient Name: Christy Ambrose : [id number] MR#: [id number] Case Date: 04/26/2018 Surgeon: Surgeon(s) and Role: [...] Aditi Mccollum MD Plastic Surgery Resident, pager [phone] Plastic surgery team pager: [phone] Attestation: Case Date: 04/26/2018 I was present and I participated during the entire procedure (does not need to include opening and closing). HAY SPARKS MD 04/27/2018 * Brief Op Note - Aditi Mccollum MD - 04/26/2018 12:36 PM EDT Brief Operative Note Patient Name: Christy Ambrose : [id number] MR#: [id number] Case Date: 04/26/2018 Surgeon: Surgeon(s) and Role: [...] or Care? [facility]. What Questions Do You Have About [...] ml/min N18.4 ??? 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 sales development representative current use of immunosuppressive drug Z79.899 [...] performed by Miguel Angel Moreno MD at [facility] MAIN OR ??? PRO DECOMPRESS FOREARM, BRACH ART EXPLOR Left 04/06/2018 FASCIOTOMY, FOREARM, WITH BRACHIAL ARTERY EXPLORATION (WRVU 8.41) performed by Lida Peter MDat [facility] MAIN OR ??? PRO DIRECT REPAIR RUPTURED ANEURYSM, AXILLO-BRACHIAL ARM INCIS Left 04/06/2018 @REPAIR, RUPTURED AXILLARY OR BRACHIAL ARTERY ANEURYSM BY ARM INCISION (WRVU *) performed by Lida Peter MD at [facility] MAIN OR ??? PRO EXC PAROTD, TOTAL, UNILAT RAD NECK Left 02/05/2016 @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, TOTAL, WITH UNILATERAL RADICAL NECK DISSECTION performed by Miguel Angel Moreno MD at [facility] MAIN OR ??? PRO EXC SKIN MALIG 3.1-4CM FACE, FACIAL Left 02/05/2016 EXC MALIGNANT LESION, 3.1 TO 4.0CM, FACE performed by Miguel Angel Moreno MD at [facility] MAIN OR ? ? PRO EXC SKIN MALIG >4CM TRUNK, ARM, LEG 04/19/2012 EXC MALIGNANT LESION, MICHAEL > 4.0CM, TRUNK performed by SABRINA MEDRANO at [facility] OR ??? PRO LAP, RADICAL NEPHRECTOMY Left 05/31/2017 @LAPAROSCOPY, RADICAL NEPHRECTOMY (WRVU 25.06) performed by Jax Mills MD at [facility] MAIN OR ??? PRO LIGATN ANGIOACCESS AV FISTULA Left 04/19/2018 LIGATION OR BANDING OF HEMODIALYSIS FISTULA OR GRAFT UPPER EXTREMITY (WRVU 6.25) performed by Odalis Elias MD at [facility] OR ??? PRO NEGATIVE PRESSURE WOUND THERAPY, LESS THAN OR EQUAL TO 50 SQCM Left 04/19/2018 DRESSING CHANGE (VAC ASSISTED) UP TO 50SQ.CM (WRVU 0.55) performed by Odalis Elias MD [facility] OR ??? PRO REBL VES GRAFT, UP EXTREM Left 04/06/2018 REPAIR BLOOD VESSEL WITH GRAFT OTHER THAN VEIN, UPPER EXTREMITY (WRVU 15.83) performed by Lida Peter MD at [facility] MAIN OR ??? PRO RELIEVE PRESSURE ON NERVE(S) Left 04/06/2018 (MSURG) CARPAL TUNNEL (WRVU 4.82) performed by Hay Sparks MD at [facility] MAIN OR ??? PRO REPAIR INTERMEDIATE S/A/T/E 2.6-7.5 CM 04/19/2012 REPAIR INTERMEDIATE WOUND, (NO HANDS OR FEET) 2.6 TO 7.5CM, UPPER EXTREMITY performed by SABRINA MEDRANO at [facility] MAIN OR ? ? PRO REPAIR INTERMEDIATE S/A/T/E > 30.0 CM Left 04/14/2018 REPAIR INTERMEDIATE WOUND, (NO HANDS OR FEET) >30.0CM, UPPER EXTREMITY (WRVU 5) performed by Yimi Easton MD at [facility] OR ??? PRO REVISE MEDIAN N/CARPAL TUNNEL SURG Left 04/06/2018 MEDIAN NERVE DECOMPRESSION (CARPAL TUNNEL RELEASE) (WRVU 4.97) performed by Lida Peter MD [facility] MAIN OR ? ? PRO SPLIT GRFT, HEAD, FAC, HAND, FEET <100SQCM N/A 02/20/2016 SPLIT THICKNESS SKIN SPLIT GRAFT,100SQ CM OR LESS, NECK performed by Miguel Angel Moreno MD at [facility] MAIN OR ??? PRO UPPER GI ENDOSCOPY, BIOPSY N/A 05/13/2017 EGD WITH BIOPSY (WRVU 2.49) performed by Aditya Barrera MD at [facility] ENDOSCOPY ??? PRO VASCULAR SURGERY PROCEDURE UNLIST Left 11/20/2015 LIGATION\REPAIR AV FISTULA performed by Camilo Ireland MD at [facility] MAIN OR ??? PRO VASCULAR SURGERY PROCEDURE UNLIST Left 11/20/2015 EXCISION VEIN FROM HAND performed by Camilo Ireland MD at [facility] MAIN OR ??? 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 [...] as pending/add-on, please make patient NPO at [place] on Wednesday. Attending: Plan discussed and agree [...] Discharge Disposition: (P) inpatient rehabilitation facility Pager: [phone] IRLANDA MUNOZ 04/22/2018 Occupational Therapy Rehabilitation Department [...] Level 0 Pain Goal 0 Transfer Assessment/Treatment [place] (Sit-Stand Transfers) supervision required [place] (Toilet Transfers) supervision required Assistive Device (Toilet Transfers) bracing Impairments (Transfers) strength decreased;balance impaired Comment (Transfers) assist for wound vac during toilet transfer; slightly impulsive Gait Assessment/Treatment [place] (Gait) supervision required Distance in Feet (Gait) 25 Impairments (Gait) balance impaired Comment (Gait) recliner <> bathroom ; witnessed pt ambulating unit w/ staffing associate ~300 Bathing Assessment/Training Comment (Bathing) pt had just completed bathing task prior to this writers arrival; pt reported assisting w/ shower cap and bathing ; Lower Body Dressing Assessment/Training Position (LB Dressing) sitting [place] Level (LB Dressing) verbal cues required;nonverbal cues [...] Home with assist [facility]UR[facility] CASSIDY PTA Pager: [phone] Inpatient Physical Therapy Timed Up & Go [...] Assessment/Treatment Assistive Device (Bed Mobility) bed rails Qlpjza-qk-Gqe [place] (Bed Mobility) conditional independence Comment (Bed Mobility) HOB flat, extra time required Nge-xw-Yuzqmi [place] (Bed Mobility) conditional independence Transfer Assessment/Treatment [place] (Sit-Stand Transfers) supervision required [place] (Stand-Sit Transfers) supervision required Cvy-Ifrzd-Nfp Assistive Device (Transfers) (no device) Maintain Weight Bearing Status (Transfers) cues to maintain weight bearing status Safety Issues (Transfers) balance decreased during turns Impairments (Transfers) balance impaired;strength decreased Comment (Transfers) Initial cues to not use L UE, impulsive, pt held wound vac with R UE Gait Assessment/Treatment [place] (Gait) supervision required Assistive Device (Gait) (no [...] to sit/sit to sidelying Bed Mobility Goal, [place] Level independent Bed Mobility Goal, Outcome Achieved goal ongoing Gait Training Goal Gait Training Goal, Date Established 04/11/18 Gait Training Goal, Time to Achieve 2 wks Gait Training Goal, [place] Level independent Gait Training Goal, Assist Device other (see comments) (LRD ) Gait Training Goal, Distance to Achieve 150 ft Gait Training Goal, Outcome goal ongoing Transfer Training Goal Transfer Training Goal, Date Established 04/11/18 Transfer Training Goal, Time to Achieve 2 wks Transfer Training Goal, Activity Type all transfers Transfer Train Goal, [place] Level independent Transfer Training Goal, Assist Device (LRD) Transfer Training Goal, Outcome goal ongoing Clinical Impression Therapy Frequency 2-4 times/wk Anticipated Discharge Disposition Home with assist * Plan of Care - Lroaine Crocker RN - 04/21/2018 2:48 AM EDT [...] Discharge Disposition: (P) inpatient rehabilitation facility Pager: [phone] IRLANDA MUNOZ 04/20/2018 Occupational Therapy Rehabilitation Department [...] Level 0 Pain Goal 0 Transfer Assessment/Treatment [place] (Sit-Stand Transfers) contact guard assist [place] (Stand-Sit Transfers) contact guard assist Xmo-Uxsja-Hib Assistive Device (Transfers) gait belt Safety Issues (Transfers) balance decreased during turns Impairments (Transfers) balance impaired;strength decreased Comment (Transfers) slightly impulsive at times; cues for safety awareness Gait Assessment/Treatment [place] (Gait) verbal cues required;nonverbal cues required (demo/gesture);contact guard assist Assistive Device (Gait) gait belt Distance in Feet (Gait) 300' Safety Issues (Gait) balance decreased during turns;step length decreased Impairments (Gait) balance impaired;strength decreased Comment (Gait) pt required mulit modal cues for directions; slightly impulsive; Lower Body Dressing Assessment/Training Position (LB Dressing) sitting;standing [place] Level (LB Dressing) set up required;verbal cues [...] good balance Sitting Balance: Dynamic fair balance Blg-aj-Rtshu Balance fair balance Standing Balance: Static fair [...] DVT on coumadin who was [place] [facility] [place] with PEA arrest secondary to fistulableeding. He is a limited historian- history taken from chart- He had had some leaking from his LUEAVF site and was found by his mom in a pool of blood, pulseless. He was transfused 6 units of prbcsand transferred to [facility] [place] He had previous LAVF revision due to [...] father Social History and Habits: Lives in [place] with his mom. Non-smoker (quit 2000). No [...] Danielle Peoples DO Infectious Disease Fellow Pager [phone] Associated attestation - Kaatrzyna Guevara MD - 04/20/2018 7:42 PM EDT [...] feelings encouraged * Op Note - Bhargavi uJnior MD - 04/19/2018 10:43 AM EDT [facility] [place] Note Patient Name: Christy Ambrose : [id number] MR#: [id number] Case Date: 04/19/2018 Surgeon: Surgeon(s) and Role: * Odails lEias MD - Primary * Bhargavi Junior MD [...] Junior MD - 04/19/2018 10:25 AM EDT [facility] [place] Note Patient Name: Christy Ambrose : [id number] MR#: [id number] Case Date: 04/19/2018 Surgeon: Surgeon(s) and Role: [...] 04/18/2018 2:40 PM EDT OFFICE OF CARE MANAGEMENT/Archivist/PROGRESS NOTE e-DH reviewed. Report received from vascular [...] base. --Had AVF ultrasound today in [facility] to assess AVF --NPO at midnight [...] Care Interventions Self-Care Promotion independence encouraged -- Tor[place]oi Fall Risk History of Falling 25 -- [...] 04/15/2018 12:36 PM EDT OFFICE OF CARE MANAGEMENT/Archivist/PROGRESS NOTE e-DH reviewed. Report received from vascular [...] Discharge Disposition: (P) inpatient rehabilitation facility Pager: [phone] IRLANDA MUNOZ 04/15/2018 Occupational Therapy Rehabilitation Department [...] 0 Pain Goal 0 Transfer Assessment/Treatment Bed-Chair [place] (Transfers) contact guard assist Qqn-Lbscc-Kzj Assistive Device (Transfers) (IV pole for support ) [place] (Sit-Stand Transfers) set up required;verbal cues required;contact guard assist [place] (Stand-Sit Transfers) verbal cues required;contact guard assist Hsa-Wvmcp-Zuq Assistive Device (Transfers) (IV pole ) Safety Issues (Transfers) sequencing ability decreased;step length decreased;weight-shifting ability decreased Impairments (Transfers) balance impaired;strength decreased Comment (Transfers) cues for safe hand placement and task initation Gait Assessment/Treatment [place] (Gait) verbal cues required;contact guard assist Assistive [...] Body Dressing Assessment/Training Position (UB Dressing) sitting [place] Level (UB Dressing) contact guard assist Comment (UB Dressing) don/doff patti Grooming Assessment/Training Position (Grooming) sitting [place] Level (Grooming) set up required;verbal cues required;contact [...] mass index is 28.91 kg/(m^2). [facility] with dry, intact [...] Please contact Violetta Deng RN on pager [phone] or the wound care team at [phone] or pager [phone] with skin and wound care concerns or [...] for specific details, POC and goals. 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 Swallowing Diagnosis other (see comments) (Functionally appearing oropharyngeal swallow) Rehab Potential/Prognosis, Swallowing good, to achieve stated therapy goals Therapy Frequency other (see comments) (D/C from speech intervention.) 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 TRUCK DRIVER Diet Recommendation regular solid;thin liquids * Plan [...] inpatient rehabilitation facility [facility] CASS[facility] PTA Pager: [phone] Inpatient Physical Therapy 04/15/18 0365 Rehab Evaluation Document Type therapy note (daily [...] Assessment/Treatment Assistive Device (Bed Mobility) bed rails Kbiaja-fs-Wzx [place] (Bed Mobility) supervision required Comment (Bed Mobility) HOB elevated, extra time required Safety Issues (Bed Mobility) decreased use of arms for pushing/pulling Impairments (Bed Mobility) strength decreased Transfer Assessment/Treatment [place] (Sit-Stand Transfers) contact guard assist [place] (Stand-Sit Transfers) contact guard assist Esx-Ynauo-Wmv Assistive Device (Transfers) (IV pole) Safety Issues (Transfers) balance decreased during turns;step length decreased;loses balance backward Impairments (Transfers) balance impaired;strength decreased Comment (Transfers) Initially falling back onto bed with standing or marching in place, able to steady himself with the IV pole Gait Assessment/Treatment [place] (Gait) contact guard assist Assistive Device (Gait) [...] to sit/sit to sidelying Bed Mobility Goal, [place] Level independent Bed Mobility Goal, Outcome Achieved goal ongoing Gait Training Goal Gait Training Goal, Date Established 04/11/18 Gait Training Goal, Time to Achieve 2 wks Gait Training Goal, [place] Level independent Gait Training Goal, Assist Device other (see comments) (LRD ) Gait Training Goal, Distance to Achieve 150 ft Gait Training Goal, Outcome goal ongoing Transfer Training Goal Transfer Training Goal, Date Established 04/11/18 Transfer Training Goal, Time to Achieve 2 wks Transfer Training Goal, Activity Type all transfers Transfer Train Goal, [place] Level independent Transfer Training Goal, Assist Device [...] Easton MD - 04/14/2018 8:19 AM EDT [facility] [place] Patient Name: Christy DU: [id number] MR#: [id number] Case Date: 04/14/2018 Surgeon: Surgeon(s) and Role: [...] he was found down. [facility] [place] 2 [place]niquets on since [...] Outcome: Ongoing (Interventions Implemented as Appropriate) 04/12/18 0546 Interdisciplinary Rounds/Family Conf Participants nursing;patient;physician Purposeful hourly rounding. * Care Management - [place], SAVANNA - 04/13/2018 1:58 PM EDT Based on discussions with the multi-disciplinary healthcare team, the patient would benefit from rehab/snf level of care at discharge. ?? I have met with the patient/sales support representative to discuss discharge planning needs. I have provided the [facility], Office of Care Management letter from the [employer] pertaining to rehab referrals. I have also provided a letter describing our affiliations within the [facility] and educated them about their right to choose where referrals are placed. ?? I reviewed the different levels of rehab including SNF, swing, acute and LTAC with the patient/sales support representative. ?? The patient/sales support representative has been provided a list of facilities within their preferred geographic area. ?? I have requested that the patient/sales support representative provide at least three choices for referral. ?? The patient/sales support representative have requested referrals to: ?? 1. [facility]. ?? 2. [facility] ?? 3. ?? Expected date of discharge: next 24- 48 hours Note routed to [employer] who will communicate referrals to facilities and [...] epilepsy, and prior TBI who [place] [facility] [place]/p LUE bleeding with PEA arrest. Description [...] Pt intubated in field. Pt taken to [facility], where second tourniquet applied and pt received 6U PRBC. Transfer[place] [facility]. Per Lorenzo monahan P Dr. Burkett. Past Medical History: Diagnosis Date ??? BP (high blood pressure) ??? DVT (deep venous thrombosis) ??? Gout ??? Hypertension ??? Kidney problem ??? Pneumonia ??? TBI (traumatic brain injury) 1980 Hospitalizations Within the Past 30 Days: [facility] Anticipated Length Of Stay (If known): Expected Length of Hospitalization: 5-7 days Current Decision-Making Capacity: Alert but confused. Awakes when I speak but confused when answering. Advance Care Planning: Adv. Directives are from 2010, pt's POA is brother Lucas Ambrose who resides in [facility], pat's 86 year old mother Ilda is [...] Insurance: N/A Prescription Coverage: yes Preferred Pharmacy: [facility] in [place], [place]. Primary Care Provider: Carroll Garcia DO [phone] Patient/Caregiver Goals of Treatment: to go to [...] of care planning. [place] RN Pager: [phone] * Care Management - [place] RN - 04/12/2018 2:33 PM EDT Based on discussions with the multi-disciplinary healthcare team, the patient would benefit from acute inpatient rehab. level of care at discharge. ?? I have met with the patient/sales support representative to discuss discharge planning needs. I have provided the [facility], Office of Care Management letter from the [employer] pertaining to rehab referrals. I have also provided a letter describing our affiliations within the [facility] and educated them about their right to choose where referrals are placed. ?? I reviewed the different levels of rehab including SNF, swing, acute and LTAC with the patient/sales support representative. ?? The patient/sales support representative has been provided a list of facilities within their preferred geographic area. ?? I have requested that the patient/sales support representative provide at least three choices for referral. ?? The patient/sales support representative have requested referrals to: ?? 1. [facility] [place], [place] ?? 2. [facility] ?? 3. [facility]. ?? Expected date of discharge: next 24-72 hours Note routed to [employer] who will communicate referrals to facilities and provide any required information. * Consult Note - Ashlie Willis [facility] - 04/12/2018 10:24 AM EDT Clinical Pharmacist Note - Renal Dose Adjustment for Antimicrobials Christy Ambrose (A# [id number]) is being treated with the following antimicrobial [...] Anticipated Discharge Disposition: inpatient rehabilitation facility Pager: [phone] RAFAELA ALONZO OT 04/11/2018 Occupational Therapy Rehabilitation [...] Comment Patient lives with his mother at [facility]. Ramp to enter, then elevator to 5th floor. Once inside, single floor. Tub shower, no chair. Regular bed Functional Level Prior Prior Functional Level Comment Reports independence with all ADL/IADL tasks. Drives. Works at the [employer] center. Only ambulates with a cane on [...] Assessment/Treatment Assistive Device (Bed Mobility) bed rails Twhbxz-bz-Vri [place] (Bed Mobility) minimum assist (75% patient effort) Comment (Bed Mobility) HOB elevated Transfer Assessment/Treatment [place] (Sit-Stand Transfers) moderate assist (50% patient effort);2 person assist required;verbal cues required [place] (Stand-Sit Transfers) moderate assist (50% patient effort);2 person assist required;verbal cues required Uif-Yesuq-Ixs Assistive Device (Transfers) (Initally stood w/o any AD. Poor balance ) Gait Assessment/Treatment [place] (Gait) moderate assist (50% patient effort);2 person [...] Body Dressing Assessment/Training Position (UB Dressing) sitting [place] Level (UB Dressing) minimum assist (75% patient effort) Lower Body Dressing Assessment/Training Position (LB Dressing) sitting [place] Level (LB Dressing) minimum assist (75% patient [...] were not included. Infiltration/Extravasation Scale Christy Ambrose [id number] IC18/IC18-A Infiltration appearance: Infiltration harm % for [...] to comfort. MD at the Pt's bedside. ADJUSTER AND INSPECTOR CARING FOR THIS PATIENT WILL CONTINUE TO [...] chair to 2 hour intervals. Use a [employer] chair cushion beneath patient at all times while in the chair. Reinforce teaching to shift weight every 15 minutes while in the chair. Following hospital standard for pressure ulcer prevention and skin care. Refer to adult/pediatric pressure ulcer prevention job aid in the clinical policy library. Wound care will follow weekly. Discussed plan with: RN: Elva Please contact MEGAHAN HOOD RN on pager [phone] or the wound care team at [phone] or pager [phone] with skin and wound care concerns or questions. * Plan of Care - Miguel Angel Pierce, COMMERCIAL TRUCK DRIVER - 04/08/2018 8:59 AM EDT Speech-Language Pathology [...] Therapy Frequency: 2-3 times/wk MIGUEL ANGEL PIERCE, COMMERCIAL TRUCK DRIVER Inpatient Speech Pathologist Pager: [phone] 04/08/18 1650 Rehab Evaluation Document Type evaluation Total Evaluation [...] patient (RN) Speech Language Pathology Goal Types COMMERCIAL TRUCK DRIVER Goal Types Dysphagia Goal (Group) Dysphagia Goal Dysphagia Goal, Date Established 04/08/18 Dysphagia Goal, Time to Achieve by discharge Oral Nutritional Level Goal safely tolerates/maintains adequate oral nutrition;no signs/symptoms ofaspiration present Clinical 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 ) Rehab Potential/Prognosis, Swallowing good, to achieve stated therapy goals Therapy Frequency 2-3 times/wk COMMERCIAL TRUCK DRIVER Diet Recommendation puree;thin liquids * Plan of [...] dose epi. Intubated in field. Arrived at [facility] ED intubated. Received 6 units pRBC. [place] [facility] [place] to [place] with vascular for [...] performed by Miguel Angel Moreno MD at [facility] MAIN OR ??? PRO DECOMPRESS FOREARM, BRACH ART EXPLOR Left 04/06/2018 FASCIOTOMY, FOREARM, WITH BRACHIAL ARTERY EXPLORATION (WRVU 8.41) performed by Lida Peter MDat [facility] MAIN OR ??? PRO DIRECT REPAIR RUPTURED ANEURYSM, AXILLO-BRACHIAL ARM INCIS Left 04/06/2018 @REPAIR, RUPTURED AXILLARY OR BRACHIAL ARTERY ANEURYSM BY ARM INCISION (WRVU *) performed by Lida Peter MD at [facility] MAIN OR ??? PRO EXC PAROTD, TOTAL, UNILAT RAD NECK Left 02/05/2016 @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, TOTAL, WITH UNILATERAL RADICAL NECK DISSECTION performed by Miguel Angel Moreno MD at [facility] MAIN OR ??? PRO EXC SKIN MALIG 3.1-4CM FACE, FACIAL Left 02/05/2016 EXC MALIGNANT LESION, 3.1 TO 4.0CM, FACE performed by Miguel Angel Moreno MD at [facility] MAIN OR ? ? PRO EXC SKIN MALIG >4CM TRUNK, ARM, LEG 04/19/2012 EXC MALIGNANT LESION, MICHAEL > 4.0CM, TRUNK performed by SABRINA MEDRANO at [facility] MAIN OR ??? PRO LAP, RADICAL NEPHRECTOMY Left 05/31/2017 @LAPAROSCOPY, RADICAL NEPHRECTOMY (WRVU 25.06) performed by Jax Mills MD at [facility] MAIN OR ??? PRO REBL VES GRAFT, UP EXTREM Left 04/06/2018 REPAIR BLOOD VESSEL WITH GRAFT OTHER THAN VEIN, UPPER EXTREMITY (WRVU 15.83) performed by Lida Peter MD at [facility] MAIN OR ??? PRO RELIEVE PRESSURE ON NERVE(S) Left 04/06/2018 (MSURG) CARPAL TUNNEL (WRVU 4.82) performed by Hay Sparks MD at [facility] MAIN OR ??? PRO REPAIR INTERMEDIATE S/A/T/E 2.6-7.5 CM 04/19/2012 REPAIR INTERMEDIATE WOUND, (NO HANDS OR FEET) 2.6 TO 7.5CM, UPPER EXTREMITY performed by SABRINA MEDRANO at [facility] MAIN OR ??? PRO REVISE MEDIAN N/CARPAL TUNNEL SURG Left 04/06/2018 MEDIAN NERVE DECOMPRESSION (CARPAL TUNNEL RELEASE) (WRVU 4.97) performed by Lida Peter MD [facility] MAIN OR ? ? PRO SPLIT GRFT, HEAD, FAC, HAND, FEET <100SQCM N/A 02/20/2016 SPLIT THICKNESS SKIN SPLIT GRAFT,100SQ CM OR LESS, NECK performed by Miguel Angel Moreno MD at [facility] MAIN OR ??? PRO UPPER GI ENDOSCOPY, BIOPSY N/A 05/13/2017 EGD WITH BIOPSY (WRVU 2.49) performed by Aditya Barrera MD at [facility] ENDOSCOPY ??? PRO VASCULAR SURGERY PROCEDURE UNLIST Left 11/20/2015 LIGATION\REPAIR AV FISTULA performed by Camilo Ireland MD at [facility] MAIN OR ??? PRO VASCULAR SURGERY PROCEDURE UNLIST Left 11/20/2015 EXCISION VEIN FROM HAND performed by Camilo Ireland MD at [facility] MAIN OR ??? 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 [...] extension 5/5 R, Elbow flexion 5/5 R Import Export Coordinator LE: 5/5 R, 5/5 L Hip flexion [...] 04/07/2018 Neurology resident, PGY-3 Vascular Neurology Pager [phone] Standard [facility] [place]: This screen [...] diet as medical provider deems appropriate. Consider [employer] consult for full evaluation and diet recommendations. 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 Apparently patient was found at his home unresponsive and was pulseless requiring several rounds of chest compressions,epinephrine and IV fluid bolus with a return of spontaneous circulation.Intubated in the field and taken to [facility] received 6 units of the PRBCs,2 FFPs for hemoglobin of 4 and required 2 tourniquets for his AV fistula leaking. [place] [facility] [place] and was taken to [place] by vascular [...] performed by Miguel Angel Moreno MD at [facility] MAIN OR ??? PRO EXC PAROTD, TOTAL, UNILAT RAD NECK Left 02/05/2016 @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, TOTAL, WITH UNILATERAL RADICAL NECK DISSECTION performed by Miguel Angel Moreno MD at [facility] OR ??? PRO EXC SKIN MALIG 3.1-4CM FACE, FACIAL Left 02/05/2016 EXC MALIGNANT LESION, 3.1 TO 4.0CM, FACE performed by Miguel Angel Moreno MD at [facility] OR ? ? PRO EXC SKIN MALIG >4CM TRUNK, ARM, LEG 04/19/2012 EXC MALIGNANT LESION, MICHAEL > 4.0CM, TRUNK performed by SABRINA MEDRANO at [facility] OR ??? PRO LAP, RADICAL NEPHRECTOMY Left 05/31/2017 @LAPAROSCOPY, RADICAL NEPHRECTOMY (WRVU 25.06) performed by Jax Mills MD at [facility] OR ??? PRO REPAIR INTERMEDIATE S/A/T/E 2.6-7.5 CM 04/19/2012 REPAIR INTERMEDIATE WOUND, (NO HANDS OR FEET) 2.6 TO 7.5CM, UPPER EXTREMITY performed by SABRINA MEDRANO at [facility] OR ? ? PRO SPLIT GRFT, HEAD, FAC, HAND, FEET <100SQCM N/A 02/20/2016 SPLIT THICKNESS SKIN SPLIT GRAFT,100SQ CM OR LESS, NECK performed by Miguel Angel Moreno MD at [facility] OR ??? PRO UPPER GI ENDOSCOPY, BIOPSY N/A 05/13/2017 EGD WITH BIOPSY (WRVU 2.49) performed by Aditya Barrera MD at [facility] ENDOSCOPY ??? PRO VASCULAR SURGERY PROCEDURE UNLIST Left 11/20/2015 LIGATION\REPAIR AV FISTULA performed by Camilo Ireland MD at [facility] OR ??? PRO VASCULAR SURGERY [...] Latest Ref Range: Clear Hazy (A) Spec Bern UA Latest Ref Range: 1.002 - 1.030 [...] w/ Dr.Chobanian Radha Hughes MD Nephrology Fellow #[id number] * Op Note - Bhargavi Junior MD - 04/07/2018 7:56 AM EDT [facility] [place] Note Patient Name: Christy Ambrose : [id number] MR#: [id number] Case Date: 04/06/2018 Surgeon: Surgeon(s) and Role: [...] he was found down. He [place] [facility] [place]agic shock with 2 tourniquets on [...] Implant Name Type Inv. Item Serial No. Air Breaker Operator Lot No. LRB No. Used Action PATCH,BIOL,XENOSURE,.[id number] ([id number]) - [id number] IMPLANTS PATCH,BIOL,XENOSURE,.8X8CM ([id number]) 0 [facility] [id number] Implanted Infection Bundle used? No, ancef [...] Operative Note Patient Name: Christy Ambrose : [id number] MR#: [id number] Case Date: 04/06/2018 Surgeon: Surgeon(s) and Role: [...] Sparks MD - 04/06/2018 4:00 PM EDT [facility] [place] Note Patient Name: Christy Ambrose : [id number] MR#: [id number] Case Date: 04/06/2018 Surgeon: Surgeon(s) and Role: [...] 04/26/2018 11:42 AM EDT TYPE AND SCREEN ([facility]/GAIVN) STAT 04/26/2018 11:42 AM EDT HEMOGRAM Routine [...] IMPLANTABLE DEVICES SCAN 04/06/2018 12:00 AM EDT BRAND LEAD SCAN 04/06/2018 12:00 AM EDT FILM LIBRARY [...] of body mass or the acutely ill. [email or web address] [place] eGFR 25(L) >=60 mL/min/1. 73 m?? [facility] Comment: The eGFR was calculated using the CKD-EPI equation. As with all creatinine based estimates of kidney function, eGFR values calculated with the CKD-EPI equation are not accurate in patients with acute kidney failure, extremes of body mass or the acutely ill. [email or web address] Blood specimen (specimen) 05/04/2018 3:00 AM EDT 05/04/2018 3:08 AM EDT Narrative Resulting Agency Comment Spec In Lab Hay Sparks MD CHEMISTRY ORDERABLES Performing Organization Address [facility] Co de Phone Number [facility] [place] [address] * Vancomycin, trough (05/03/2018 6:40 PM EDT) Pathologist [facility] Vancomycin, Trough 14.2 mg/L [facility] Comment: Therapeutic range for complicated [...] Sparks MD CHEMISTRY ORDERABLES Performing Organization Address [facility] Co de Phone Number [facility] [place] [address] * Differential, Automated (05/03/2018 3:06 AM EDT) Pathologist [facility] Neutrophil % 60.8 % [facility] Neutrophil Absolute 3.01 1.70 - 6.10 x10(3)/[facility] LABORATORY Lymph % 19.8 % [facility] Lymphocytes Abs 1.0 0.9 - 3.2 x10(3)/[facility]ORATORY Monocyte % 10.7 % [facility] Monocyte Abs 0.5 0.3 - 0.9 x10(3)/[facility]OR[facility] Eos % 8.1 % [facility] Eosinophils Abs 0.4 0.0 - 0.4 x10(3)/[facility] Basophil % 0.4 % [facility] Baso Absolute 0.0 0.0 - 0.1 x10(3)/[facility] LABORATORY Immature Gran % 0.20 % [facility] Comment: Immature granulocytes(IG's)percentage and absolute count will include metamyelocytes, myelocytes, and promyelocytes. Blood smears from CBCs yielding IG's will be scanned manually for concordance. If this scan disagrees with the automated IG or if promyelocytes are noted, a manual differential will be performed. Immature Gran Absolute 0.01 0.00 - 0.04 x10(3)/[facility] Blood specimen (specimen) 05/03/2018 3:06 AM EDT 05/03/2018 3:16 AM EDT Narrative Resulting Agency Comment Spec In Lab Apple Gutierrez MD HEMATOLOGY ORDERABLE S Performing Organization Address City/State/[facility] Co de Phone Number [facility] [place] [address] * (ABNORMAL) Hemogram (05/03/2018 3:06 AM EDT) White Blood Cell 5.0 4.0 - 9.5 x10(3)/[facility]ORY Red Blood Cell 2.64(L) 4.58 [...] HOSPITAL LABORATORY Platelet 160 145 - 357 x10(3)/[facility] RDW Standard Deviation 54.3(H) 36.0 - 45.0 fL [facility] RDW coefficient of variation 15.6(H) 11.4 - 13.8 % [facility] Mean Platelet Volume 9.0 7.6 - 12.9 fL [facility] NRBC% auto 0.0 % [facility] NRBC Absolute 0.000 0.000 - 0.000 x10(3)/mc L [facility] Blood specimen (specimen) 05/03/2018 3:06 AM EDT 05/03/2018 3:16 AM EDT Narrative Resulting Agency Comment Spec In Lab Apple Gutierrez MD HEMATOLOGY ORDERABLE S [facility] [place] [address] * (ABNORMAL) Basic Metabolic Panel (non-fasting) (05/03/2018 [...] of body mass or the acutely ill. [email or web address] [place] eGFR 31(L) >=60 mL/min/1. 73 m?? [facility] Comment: The eGFR was calculated using the CKD-EPI equation. As with all creatinine based estimates of kidney function, eGFR values calculated with the CKD-EPI equation are not accurate in patients with acute kidney failure, extremes of body mass or the acutely ill. [email or web address] [place] Blood specimen (specimen) 05/03/2018 3:06 AM EDT 05/03/2018 3:16 AM EDT Narrative Resulting Agency Comment Spec In Lab Hay Sparks MD CHEMISTRY ORDERABLES Performing Organization Address City/State/[facility] Co de Phone Number [facility] [place] [address] * Differential, Automated (05/02/2018 3:20 AM EDT) Neutrophil % 60.2 % [facility] Neutrophil Absolute 2.89 1.70 - 6.10 x10(3)/[facility] Lymph % 20.8 % [facility] Lymphocytes Abs 1.0 0.9 - 3.2 x10(3)/[facility] Monocyte % 9.2 % [facility] Monocyte Abs 0.4 0.3 - 0.9 x10(3)/[facility] Eos % 8.8 % [facility] Eosinophils Abs 0.4 0.0 - 0.4 x10(3)/[facility]ORY Basophil % 0.6 % [facility] Baso Absolute 0.0 0.0 - 0.1 x10(3)/[facility] Immature Gran % 0.40 % GR[facility] [...] HEMATOLOGY ORDERABLE S [facility] [place] [address] * (ABNORMAL) Hemogram (05/02/2018 3:20 AM EDT) [...] [facility] NRBC% auto 0.0 % [facility] NRBC Absolute 0.000 0.000 - 0.000 x10(3)/mc L [facility] Blood specimen (specimen) 05/02/2018 3:20 AM EDT 05/02/2018 3:26 AM EDT Narrative Resulting Agency Comment Spec In Lab Apple Gutierrez MD HEMATOLOGY ORDERABLE S [facility] [place] [address] * (ABNORMAL) Basic Metabolic Panel (non-fasting) (05/02/2018 [...] of body mass or the acutely ill. [email or web address] [place] eGFR 29(L) >=60 mL/min/1. 73 m?? [facility] Comment: The eGFR was calculated using the CKD-EPI equation. As with all creatinine based estimates of kidney function, eGFR values calculated with the CKD-EPI equation are not accurate in patients with acute kidney failure, extremes of body mass or the acutely ill. [email or web address] [place] [place] Blood specimen (specimen) 05/02/2018 3:20 AM EDT 05/02/2018 3:25 AM EDT Narrative Resulting Agency Comment Spec In Lab Hay Sparks MD CHEMISTRY ORDERABLES [facility] [place] [address] * Differential, Automated (05/01/2018 4:00 AM EDT) Neutrophil % 60.0 % [facility] Neutrophil Absolute 2.98 1.70 - 6.10 x10(3)/[facility] Lymph % 21.2 % [facility] Lymphocytes Abs 1.0 0.9 - 3.2 x10(3)/[facility] Monocyte % 9.7 % [facility] Monocyte Abs 0.5 0.3 - 0.9 x10(3)/[facility] Eos % 8.1 % [facility] Eosinophils Abs 0.4 0.0 - 0.4 x10(3)/[facility] Basophil % 0.8 % [facility] Baso Absolute 0.0 0.0 - 0.1 x10(3)/[facility] Immature Gran % 0.20 % GRACE [...] HEMATOLOGY ORDERABLE S [facility] [place] [address] * (ABNORMAL) Hemogram (05/01/2018 4:00 AM EDT) [...] RDW Standard Deviation 53.5(H) 36.0 - 45.0 [facility] RDW coefficient of variation 15.5(H) 11.4 - 13.8 % [facility] Mean Platelet Volume 8.9 7.6 - 12.9 [facility]ATORY NRBC% auto 0.0 % [facility] NRBC Absolute 0.000 0.000 - 0.000 x10(3)/mc L [facility] Blood specimen (specimen) 05/01/2018 4:00 AM EDT 05/01/2018 4:13 AM EDT Narrative Resulting Agency Comment Spec In Lab Apple Gutierrez MD HEMATOLOGY ORDERABLE S [facility] [place] [address] * (ABNORMAL) Basic Metabolic Panel (non-fasting) (05/01/2018 [...] of body mass or the acutely ill. [email or web address] [place] [place] eGFR 30(L) >=60 mL/min/1. 73 m?? [facility] Comment: The eGFR was calculated using the CKD-EPI equation. As with all creatinine based estimates of kidney function, eGFR values calculated with the CKD-EPI equation are not accurate in patients with acute kidney failure, extremes of body mass or the acutely ill. [email or web address] Blood specimen (specimen) 05/01/2018 4:00 AM EDT 05/01/2018 4:13 AM EDT Narrative Resulting Agency Comment Spec In Lab Hay Sparks MD CHEMISTRY ORDERABLES Performing Organization Address [facility] Co de Phone Number [facility] [place] [address] * Vancomycin, trough (04/30/2018 7:05 PM EDT) Vancomycin, Trough 15.3 mg/L M [facility] Comment: Therapeutic range for complicated infections [...] Sparks MD CHEMISTRY ORDERABLES Performing Organization Address City/[facility] Co de Phone Number [facility] [place] [address] * Differential, Automated (04/30/2018 2:55 AM EDT) Neutrophil % 60.3 % [facility] Neutrophil Absolute 3.15 1.70 - 6.10 x10(3)/mcL [facility] Lymph % 22.8 % [facility] Lymphocytes Abs 1.2 0.9 - 3.2 x10(3)/[facility] Monocyte % 10.2 % [facility] Monocyte Abs 0.5 0.3 - 0.9 x10(3)/[facility] Eos % 5.7 % [facility] Eosinophils Abs 0.3 0.0 - 0.4 x10(3)/[facility] Basophil % 0.6 % [facility] Baso Absolute 0.0 0.0 - 0.1 x10(3)/[facility] Immature Gran % 0.40 % [facility] [...] [facility] Blood specimen (specimen) 04/30/2018 2:55 AM EDT 04/30/2018 3:06 AM EDT Narrative Resulting Agency Comment Spec In Lab Apple Gutierrez MD HEMATOLOGY ORDERABLE S [facility] [place] [address] * (ABNORMAL) Hemogram (04/30/2018 2:55 AM EDT) [...] [facility] NRBC% auto 0.0 % [facility] NRBC Absolute 0.000 0.000 - 0.000 x10(3)/mc L [facility] Blood specimen (specimen) 04/30/2018 2:55 AM EDT 04/30/2018 3:06 AM EDT Narrative Resulting Agency Comment Spec In Lab Apple Gutierrez MD HEMATOLOGY ORDERABLE S [facility] [place] [address] * (ABNORMAL) Basic Metabolic Panel (non-fasting) (04/30/2018 [...] of body mass or the acutely ill. [email or web address] [place] [facility] [place] eGFR 26(L) >=60 mL/min/1. 73 m?? [facility] Comment: The eGFR was calculated using the CKD-EPI equation. As with all creatinine based estimates of kidney function, eGFR values calculated with the CKD-EPI equation are not accurate in patients with acute kidney failure, extremes of body mass or the acutely ill. [email or web address] Blood specimen (specimen) 04/30/2018 2:55 AM EDT 04/30/2018 3:06 AM EDT Narrative Resulting Agency Comment Spec In Lab Hay Sparks MD CHEMISTRY ORDERABLES [facility] [place] [address] * Vancomycin, trough (04/29/2018 5:15 PM EDT) Vancomycin, Trough 15.9 mg/L M [facility] Comment: Therapeutic range for complicated infections [...] MD CHEMISTRY ORDERAB LES Performing Organization Address [facility] Co de Phone Number [facility] [place] [address] * Vancomycin, trough (04/29/2018 6:55 AM EDT) Vancomycin, Trough 19.5 mg/L [facility] Comment: Therapeutic range for complicated [...] Sparks MD CHEMISTRY ORDERABLES Performing Organization Address [facility] Co de Phone Number [facility] [place] [address] * Differential, Automated (04/29/2018 5:40 AM EDT) Neutrophil % 63.0 % [facility] Neutrophil Absolute 3.22 1.70 - 6.10 x10(3)/[facility] Lymph % 21.1 % [facility] Lymphocytes Abs 1.1 0.9 - 3.2 x10(3)/[facility] Monocyte % 9.0 % [facility] Monocyte Abs 0.5 0.3 - 0.9 x10(3)/[facility] Eos % 5.5 % [facility] Eosinophils Abs 0.3 0.0 - 0.4 x10(3)/[facility] Basophil % 0.8 % [facility] Baso Absolute 0.0 0.0 - 0.1 x10(3)/[facility] Immature Gran % 0.60 % [facility] Blood specimen (specimen) 04/29/2018 5:40 AM EDT 04/29/2018 6:11 AM EDT Narrative Resulting Agency Comment Spec In Lab Apple Gutierrez MD HEMATOLOGY ORDERABLE S [facility] [place] [address] * (ABNORMAL) Hemogram (04/29/2018 5:40 AM EDT) [...] [facility] NRBC% auto 0.0 % [facility] NRBC Absolute 0.000 0.000 - 0.000 x10(3)/mc L [facility] Blood specimen (specimen) 04/29/2018 5:40 AM EDT 04/29/2018 6:11 AM EDT Narrative Resulting Agency Comment Spec In Lab Apple Gutierrez MD HEMATOLOGY ORDERABLE S [facility] [place] [address] * (ABNORMAL) Basic Metabolic Panel (non-fasting) (04/29/2018 [...] of body mass or the acutely ill. [email or web address] eGFR 32(L) >=60 mL/min/1. 73 m?? [facility] Comment: The eGFR was calculated using the CKD-EPI equation. As with all creatinine based estimates of kidney function, eGFR values calculated with the CKD-EPI equation are not accurate in patients with acute kidney failure, extremes of body mass or the acutely ill. [email or web address] [place] [facility] [place] Blood specimen (specimen) 04/29/2018 5:40 AM EDT 04/29/2018 6:11 AM EDT Narrative Resulting Agency Comment Spec In Lab Hay Sparks MD CHEMISTRY ORDERABLES [facility] [place] [address] * (ABNORMAL) Vancomycin, trough (04/28/2018 1:09 PM [...] Sparks MD CHEMISTRY ORDERABLES Performing Organization Address [facility] Co de Phone Number [facility] [place] [address] * EKG 12 Lead (04/28/2018 7:17 AM EDT) Ventricular rate 51 BPM MUSE SYSTEM Atrial Rate 51 BPM MUSE SYSTEM P-R Interval 162 ms MUSE SYSTEM QRS Duration 92 ms MUSE SYSTEM Q-T Interval 442 ms MUSE SYSTEM QTC Calculated (Bezet) 407 ms MUSE SYSTEM Calculated P Houghton 59 degrees MUSE SYSTEM Calculated R [place] 35 degrees MUSE SYSTEM Calculated T Houghton 34 degrees MUSE SYSTEM INTERPRETATION Sinus bradycardia Otherwise normal ECG When compared with ECG of 26-MAY-2017 11:16, No significant change was found Confirmed by MD Aure, Sukumar Rubi ([id number]) on 04/29/2018 1:34:03 PM MUSE SYSTEM 04/28/2018 7:17 AM EDT 04/29/2018 1:34 PM EDT Chase Olvera MD ECG ORDERABLES Performing Organization Address [facility] Co de Phone Number MUSE SYSTEM * Differential, Automated (04/28/2018 4:40 AM EDT) Neutrophil % 66.6 % [facility] Neutrophil Absolute 4.11 1.70 - 6.10 x10(3)/[facility] Lymph % 23.5 % [facility] Lymphocytes Abs 1.4 0.9 - 3.2 x10(3)/[facility] Monocyte % 7.8 % [facility] Monocyte Abs 0.5 0.3 - 0.9 x10(3)/[facility] Eos % 1.5 % [facility] Eosinophils Abs 0.1 0.0 - 0.4 x10(3)/[facility] Basophil % 0.3 % [facility] Baso Absolute 0.0 0.0 - 0.1 x10(3)/[facility] Immature Gran % 0.30 % [facility] Blood specimen (specimen) 04/28/2018 4:40 AM EDT 04/28/2018 4:53 AM EDT Narrative Resulting Agency Comment Spec In Lab Apple Gutierrez MD HEMATOLOGY ORDERABLE S Performing Organization Address City/State/[facility] Co de Phone Number [facility] [place] [address] * (ABNORMAL) Hemogram (04/28/2018 4:40 AM EDT) White Blood Cell 6.2 4.0 - 9.5 x10(3)/mc L [facility] Red Blood Cell 2.54(L) 4.58 [...] HOSPITAL LABORATORY Platelet 249 145 - 357 x10(3)/[facility] RDW Standard Deviation 55.3(H) 36.0 - 45.0 fL [facility] RDW coefficient of variation 15.6(H) 11.4 - 13.8 % [facility] Mean Platelet Volume 8.7 7.6 - 12.9 fL [facility] NRBC% auto 0.0 % [facility] NRBC Absolute 0.000 0.000 - 0.000 x10(3)/mc L [facility] Blood specimen (specimen) 04/28/2018 4:40 AM EDT 04/28/2018 4:53 AM EDT Narrative Resulting Agency Comment Spec In Lab Apple Gutierrez MD HEMATOLOGY ORDERABLE S [facility] [place] [address] * (ABNORMAL) Basic Metabolic Panel (non-fasting) (04/28/2018 [...] of body mass or the acutely ill. [email or web address] eGFR 28(L) >=60 mL/min/1. 73 m?? [facility] Comment: The eGFR was calculated using the CKD-EPI equation. As with all creatinine based estimates of kidney function, eGFR values calculated with the CKD-EPI equation are not accurate in patients with acute kidney failure, extremes of body mass or the acutely ill. [email or web address] Blood specimen (specimen) 04/28/2018 4:40 AM EDT 04/28/2018 4:53 AM EDT Narrative Resulting Agency Comment Spec In Lab Hay Sparks MD CHEMISTRY ORDERABLES Performing Organization Address [facility] Co de Phone Number [facility] [place] [address] * Vancomycin, trough (04/27/2018 1:30 PM EDT) [facility] Vancomycin, Trough 11.1 mg/L M [facility] Comment: Therapeutic range for complicated infections [...] Sparks MD CHEMISTRY ORDERABLES Performing Organization Address City/[facility]/ZIP Co de Phone Number [facility] [place] [address] * XR PICC Placement Over 5 Years [...] [facility] Lymph % 9.7 % [facility] Lymphocytes Abs 0.6(L) 0.9 - 3.2 x10(3)/mc L [facility] Monocyte % 5.5 % [facility] Monocyte Abs 0.3 0.3 - 0.9 x10(3)/mc L [facility] Eos % 0.0 % [facility] Eosinophils Abs 0.0 0.0 - 0.4 x10(3)/mc L [facility] Basophil % 0.2 % [facility] Baso Absolute 0.0 0.0 - 0.1 x10(3)/[facility] Immature Gran % 0.20 % [facility] Comment: Immature granulocytes(IG's)percentage and absolute count will include metamyelocytes, myelocytes, and promyelocytes. Blood smears from CBCs yielding IG's will be scanned manually for concordance. If this scan disagrees with the automated IG or if promyelocytes are noted, a manual differential will be performed. Immature Gran Absolute 0.01 0.00 - 0.04 x10(3)/[facility] Blood specimen (specimen) 04/27/2018 4:43 AM EDT 04/27/2018 5:16 AM EDT Narrative Resulting Agency Comment Spec In Lab Apple Gutierrez MD HEMATOLOGY ORDERABLE S Performing Organization Address City/State/[facility] Co de Phone Number [facility] [place] [address] * (ABNORMAL) Hemogram (04/27/2018 4:43 AM EDT) White Blood Cell 5.9 4.0 - 9.5 x10(3)/[facility] LABORATORY Red Blood Cell 2.81(L) 4.58 - 5.54 x10(6)/[facility]ORY Hemoglobin 8.8(L) 13.7 - 16.5 gm/dL [...] LABORATORY Platelet 302 145 - 357 x10(3)/[facility] LAB[facility]ORY RDW Standard Deviation 54.9(H) 36.0 - 45.0 fL [facility] RDW coefficient of variation 15.5(H) 11.4 - 13.8 % [facility] Mean Platelet Volume 8.8 7.6 - 12.9 fL [facility] NRBC% auto 0.0 % [facility] NRBC Absolute 0.000 0.000 - 0.000 x10(3)/mc L [facility] Blood specimen (specimen) 04/27/2018 4:43 AM EDT 04/27/2018 5:16 AM EDT Narrative Resulting Agency Comment Spec In Lab Apple Gutierrez MD HEMATOLOGY ORDERABLE S [facility] [place] [address] * (ABNORMAL) Basic Metabolic Panel (non-fasting) (04/27/2018 [...] of body mass or the acutely ill. [email or web address]://eGifter/[facility] [place] eGFR 28(L) >=60 mL/min/1. 73 m?? [facility] Comment: The eGFR was calculated using the CKD-EPI equation. As with all creatinine based estimates of kidney function, eGFR values calculated with the CKD-EPI equation are not accurate in patients with acute kidney failure, extremes of body mass or the acutely ill. http://eGifter/[facility] [place] Blood specimen (specimen) 04/27/2018 4:43 AM EDT 04/27/2018 5:16 AM EDT Narrative Resulting Agency Comment Spec In Lab Hay Sparks MD CHEMISTRY ORDERABLES [facility] [place] [address] * (ABNORMAL) Hemogram (04/26/2018 3:09 PM EDT) [facility] NRBC% auto 0.0 % [facility] NRBC Absolute 0.000 0.000 - 0.000 x10(3)/mc L [facility] Blood specimen (specimen) 04/26/2018 3:09 PM EDT 04/26/2018 3:16 PM EDT Narrative Resulting Agency Comment Spec In Lab Chase Olvera MD HEMATOLOGY ORDERA BLES Performing Organization Address [facility] Co de Phone Number [facility] [place] [address] * Vancomycin, trough (04/26/2018 2:15 PM EDT) Vancomycin, Trough 11.8 mg/L [facility] Comment: Therapeutic range for complicated [...] Sparks MD CHEMISTRY ORDERABLES Performing Organization Address [facility] Co de Phone Number [facility] [place] [address] * ABORH Recheck Status (04/26/2018 11:42 AM EDT) ABORH Type Recheck Completed [facility] Blood specimen (specimen) 04/26/2018 11:42 AM EDT 04/26/2018 11:42 AM EDT Narrative Resulting Agency Comment Spec In Lab Natalya Jacobsen MD BLOOD BANK LAB ORDER KELLY [facility] [place] [address] * Antibody screen (04/26/2018 11:42 AM EDT) Pathologist [facility] Ab Screen Interp Negative [facility] Expires at [id number] on: 04/29/2018 [facility] Blood specimen (specimen) 04/26/2018 11:42 AM EDT 04/26/2018 11:42 AM EDT Narrative Resulting Agency Comment Spec In Lab Natalya Jacobsen MD BLOOD BANK LAB ORDER KELLY Performing Organization Address City/[facility]/ZIP Co de Phone Number [facility] [place] [address] * ABO/Rh Typing (04/26/2018 11:42 AM EDT) Pathologist [facility] ABORH Type A Pos [facility] Blood specimen (specimen) 04/26/2018 11:42 AM EDT 04/26/2018 11:42 AM EDT Narrative Resulting Agency Comment Spec In Lab Natalya Jacobsen MD BLOOD BANK LAB ORDER KELLY [facility] [place] [address] * Differential, Automated (04/26/2018 4:39 AM EDT) Neutrophil % 55.1 % [facility] Neutrophil Absolute 2.56 1.70 - 6.10 x10(3)/mcL [facility] Lymph % 27.7 % [facility] Lymphocytes Abs 1.3 0.9 - 3.2 x10(3)/[facility] LABORATORY Monocyte % 10.5 % [facility] Monocyte Abs 0.5 0.3 - 0.9 x10(3)/[facility] LABORATORY Eos % 5.2 % [facility] Eosinophils Abs 0.2 0.0 - 0.4 x10(3)/[facility] LABORATORY Basophil % 1.3 % [facility] Baso Absolute 0.1 0.0 - 0.1 x10(3)/[facility] LABORATORY Immature Gran % 0.20 % [facility] Comment: Immature granulocytes(IG's)percentage and absolute count will include metamyelocytes, myelocytes, and promyelocytes. Blood smears from CBCs yielding IG's will be scanned manually for concordance. If this scan disagrees with the automated IG or if promyelocytes are noted, a manual differential will be performed. Immature Gran Absolute 0.01 0.00 - 0.04 x10(3)/[facility] LABORATORY Blood specimen (specimen) 04/26/2018 4:39 AM EDT 04/26/2018 4:58 AM EDT Narrative Resulting Agency Comment Spec In Lab Apple Gutierrez MD HEMATOLOGY ORDERABLE S [facility] [place] [address] * (ABNORMAL) Hemogram (04/26/2018 4:39 AM EDT) [facility] NRBC% auto 0.0 % [facility] NRBC Absolute 0.000 0.000 - 0.000 x10(3)/mc L [facility] Blood specimen (specimen) 04/26/2018 4:39 AM EDT 04/26/2018 4:58 AM EDT Narrative Resulting Agency Comment Spec In Lab Apple Gutierrez MD HEMATOLOGY ORDERABLE S [facility] [place] [address] * (ABNORMAL) Basic Metabolic Panel (non-fasting) (04/26/2018 [...] of body mass or the acutely ill. http://eGifter/[facility] [place] [facility] [place] eGFR 28(L) >=60 mL/min/1. 73 m?? [facility] Comment: The eGFR was calculated using the CKD-EPI equation. As with all creatinine based estimates of kidney function, eGFR values calculated with the CKD-EPI equation are not accurate in patients with acute kidney failure, extremes of body mass or the acutely ill. http://eGifter/[facility] [place] Blood specimen (specimen) 04/26/2018 4:39 AM EDT 04/26/2018 4:58 AM EDT Narrative Resulting Agency Comment Spec In Lab Hay Sparks MD CHEMISTRY ORDERABLES [facility] [place] [address] * SCAN DOC: ECG (04/26/2018 12:00 AM EDT) Narrative 04/26/2018 12:00 AM EDT Ordered by an unspecified provider. Scanning Provider MEDIA MGR SCAN EXT O RDR/RSLT * Differential, Automated (04/25/2018 5:18 AM EDT) Neutrophil % 64.9 % [facility] Neutrophil Absolute 3.49 1.70 - 6.10 x10(3)/mcL [facility] Lymph % 20.4 % [facility] Lymphocytes Abs 1.1 0.9 - 3.2 x10(3)/[facility] LABORATORY Monocyte % 8.0 % [facility] Monocyte Abs 0.4 0.3 - 0.9 x10(3)/[facility] LABORATORY Eos % 4.8 % [facility] Eosinophils Abs 0.3 0.0 - 0.4 x10(3)/[facility] LABORATORY Basophil % 1.5 % [facility] Baso Absolute 0.1 0.0 - 0.1 x10(3)/[facility] LABORATORY Immature Gran % 0.40 % [facility] Blood specimen (specimen) 04/25/2018 5:18 AM EDT 04/25/2018 5:43 AM EDT Narrative Resulting Agency Comment Spec In Lab Apple Gutierrez MD HEMATOLOGY ORDERABLE S [facility] [place] [address] * (ABNORMAL) Hemogram (04/25/2018 5:18 AM EDT) White Blood Cell 5.4 4.0 - 9.5 x10(3)/mc L [facility] Red Blood Cell 2.70(L) 4.58 - 5.54 x10(6)/mc L [facility] [...] Mean Platelet Volume 9.1 7.6 - 12.9 [facility] LABORATORY NRBC% auto 0.0 % [facility] NRBC Absolute 0.000 0.000 - 0.000 x10(3)/mc L [facility] Blood specimen (specimen) 04/25/2018 5:18 AM EDT 04/25/2018 5:43 AM EDT Narrative Resulting Agency Comment Spec In Lab Apple Gutierrez MD HEMATOLOGY ORDERABLE S [facility] [place] [address] * (ABNORMAL) Basic Metabolic Panel (non-fasting) (04/25/2018 [...] of body mass or the acutely ill. http://eGifter/[facility] [place] eGFR 31(L) >=60 mL/min/1. 73 m?? [facility] Comment: The eGFR was calculated using the CKD-EPI equation. As with all creatinine based estimates of kidney function, eGFR values calculated with the CKD-EPI equation are not accurate in patients with acute kidney failure, extremes of body mass or the acutely ill. http://eGifter/[facility] [place] Blood specimen (specimen) 04/25/2018 5:18 AM EDT 04/25/2018 5:43 AM EDT Narrative Resulting Agency Comment Spec In Lab Hay Sparks MD CHEMISTRY ORDERABLES [facility] [place] [address] * Differential, Automated (04/24/2018 4:17 AM EDT) Neutrophil % 58.3 % [facility] Neutrophil Absolute 2.74 1.70 - 6.10 x10(3)/[facility] LABORATORY Lymph % 24.8 % [facility] Lymphocytes Abs 1.2 0.9 - 3.2 x10(3)/[facility] LABORATORY Monocyte % 9.3 % [facility] Monocyte Abs 0.4 0.3 - 0.9 x10(3)/[facility] LABORATORY Eos % 5.9 % [facility] Eosinophils Abs 0.3 0.0 - 0.4 x10(3)/[facility] LABORAT[facility] Basophil % 1.1 % [facility] Baso Absolute 0.0 0.0 - 0.1 x10(3)/[facility] LABOR[facility] Immature Gran % 0.60 % [facility] Blood specimen (specimen) 04/24/2018 4:17 AM EDT 04/24/2018 4:40 AM EDT Narrative Resulting Agency Comment Spec In Lab Apple Gutierrez MD HEMATOLOGY ORDERABLE S [facility] [place] [address] * (ABNORMAL) Hemogram (04/24/2018 4:17 AM EDT) [facility] NRBC% auto 0.0 % [facility] NRBC Absolute 0.000 0.000 - 0.000 x10(3)/mc L [facility] Blood specimen (specimen) 04/24/2018 4:17 AM EDT 04/24/2018 4:40 AM EDT Narrative Resulting Agency Comment Spec In Lab Apple Gutierrez MD HEMATOLOGY ORDERABLE S [facility] [place] [address] * (ABNORMAL) Basic Metabolic Panel (non-fasting) (04/24/2018 [...] of body mass or the acutely ill. http://eGifter/[facility] [place] eGFR 29(L) >=60 mL/min/1. 73 m?? [facility] Comment: The eGFR was calculated using the CKD-EPI equation. As with all creatinine based estimates of kidney function, eGFR values calculated with the CKD-EPI equation are not accurate in patients with acute kidney failure, extremes of body mass or the acutely ill. http://eGifter/[facility] [place] Blood specimen (specimen) 04/24/2018 4:17 AM EDT 04/24/2018 4:40 AM EDT Narrative Resulting Agency Comment Spec In Lab Hay Sparks MD CHEMISTRY ORDERABLES [facility] [place] [address] * Differential, Automated (04/23/2018 4:56 AM EDT) Neutrophil % 61.5 % [facility] Neutrophil Absolute 3.19 1.70 - 6.10 x10(3)/[facility] LABORATORY Lymph % 22.2 % [facility] Lymphocytes Abs 1.2 0.9 - 3.2 x10(3)/[facility] LABORATORY Monocyte % 9.5 % [facility] Monocyte Abs 0.5 0.3 - 0.9 x10(3)/[facility] LABORAT[facility] Eos % 5.6 % [facility] Eosinophils Abs 0.3 0.0 - 0.4 x10(3)/[facility]OR[facility] Basophil % 0.8 % [facility] Baso Absolute 0.0 0.0 - 0.1 x10(3)/[facility] Immature Gran % 0.40 % [facility] Blood specimen (specimen) 04/23/2018 4:56 AM EDT 04/23/2018 5:25 AM EDT Narrative Resulting Agency Comment Spec In Lab Apple Gutierrez MD HEMATOLOGY ORDERABLE S [facility] [place] [address] * (ABNORMAL) Hemogram (04/23/2018 4:56 AM EDT) White Blood Cell 5.2 4.0 - 9.5 x10(3)/mc L [facility] NRBC% auto 0.0 % [facility] NRBC Absolute 0.000 0.000 - 0.000 x10(3)/mc L [facility] Blood specimen (specimen) 04/23/2018 4:56 AM EDT 04/23/2018 5:25 AM EDT Narrative Resulting Agency Comment Spec In Lab Apple Gutierrez MD HEMATOLOGY ORDERABLE S Performing Organization Address City/State/[facility] Co de Phone Number [facility] [place] [address] * (ABNORMAL) Basic Metabolic Panel (non-fasting) (04/23/2018 [...] of body mass or the acutely ill. http://eGifter/[facility] [place] eGFR 32(L) >=60 mL/min/1. 73 m?? [facility] Comment: The eGFR was calculated using the CKD-EPI equation. As with all creatinine based estimates of kidney function, eGFR values calculated with the CKD-EPI equation are not accurate in patients with acute kidney failure, extremes of body mass or the acutely ill. http://eGifter/[facility] [place] Blood specimen (specimen) 04/23/2018 4:56 AM EDT 04/23/2018 5:25 AM EDT Narrative Resulting Agency Comment Spec In Lab Hay Sparks MD CHEMISTRY ORDERABLES Performing Organization Address City/State/[facility] Co de Phone Number [facility] [place] [address] * Differential, Automated (04/22/2018 5:34 AM EDT) Neutrophil % 67.1 % [facility] Neutrophil Absolute 3.67 1.70 - 6.10 x10(3)/[facility] LABORATORY Lymph % 17.3 % [facility] Lymphocytes Abs 1.0 0.9 - 3.2 x10(3)/[facility] Monocyte % 10.0 % [facility] Monocyte Abs 0.6 0.3 - 0.9 x10(3)/[facility] Eos % 4.7 % [facility] Eosinophils Abs 0.3 0.0 - 0.4 x10(3)/[facility] Basophil % 0.7 % [facility] Baso Absolute 0.0 0.0 - 0.1 x10(3)/[facility]ORAT[facility] Immature Gran % 0.20 % [facility] Comment: Immature granulocytes(IG's)percentage and absolute count will include metamyelocytes, myelocytes, and promyelocytes. Blood smears from CBCs yielding IG's will be scanned manually for concordance. If this scan disagrees with the automated IG or if promyelocytes are noted, a manual differential will be performed. Immature Gran Absolute 0.01 0.00 - 0.04 x10(3)/[facility] Blood specimen (specimen) 04/22/2018 5:34 AM EDT 04/22/2018 5:51 AM EDT Narrative Resulting Agency Comment Spec In Lab Apple Gutierrez MD HEMATOLOGY ORDERABLE S Performing Organization Address City/State/[facility] Co de Phone Number [facility] [place] [address] * (ABNORMAL) Hemogram (04/22/2018 5:34 AM EDT) White Blood Cell 5.5 4.0 - 9.5 x10(3)/ L [facility] Red Blood Cell 2.62(L) 4.58 - 5.54 x10(6)/ L [facility] Hemoglobin 8.0(L) [...] HOSPITAL LABORATORY Platelet 289 145 - 357 x10(3)/[facility] LAB[facility] RDW Standard Deviation 56.7(H) 36.0 - 45.0 fL [facility] RDW coefficient of variation 16.2(H) 11.4 - 13.8 % [facility] Mean Platelet Volume 8.6 7.6 - 12.9 fL [facility] NRBC% auto 0.0 % [facility] NRBC Absolute 0.000 0.000 - 0.000 x10(3)/mc L [facility] Blood specimen (specimen) 04/22/2018 5:34 AM EDT 04/22/2018 5:51 AM EDT Narrative Resulting Agency Comment Spec In Lab Apple Gutierrez MD HEMATOLOGY ORDERABLE S [facility] [place] [address] * (ABNORMAL) Basic Metabolic Panel (non-fasting) (04/22/2018 [...] of body mass or the acutely ill. http://eGifter/[facility] [place] eGFR 35(L) >=60 mL/min/1. 73 m?? [facility] Comment: The eGFR was calculated using the CKD-EPI equation. As with all creatinine based estimates of kidney function, eGFR values calculated with the CKD-EPI equation are not accurate in patients with acute kidney failure, extremes of body mass or the acutely ill. http://eGifter/[facility] [place] Blood specimen (specimen) 04/22/2018 5:34 AM EDT 04/22/2018 5:51 AM EDT Narrative Resulting Agency Comment Spec In Lab Hay Sparks MD CHEMISTRY ORDERABLES [facility] [place] [address] * Blood culture (04/21/2018 6:05 AM EDT) Blood Culture No growth at 5 days. [facility] Blood specimen (specimen) STRUCTURE OF RIGHT HAND / Unknown 04/21/2018 6:05 AM EDT 04/21/2018 8:01 AM EDT Narrative Resulting Agency Comment Spec In Lab Chase Olvera MD MICROBIOLOGY - BL OOD ORDERABLES [facility] [place] [address] * Blood culture (04/21/2018 5:50 AM EDT) Blood Culture No growth at 5 days. [facility] Blood specimen (specimen) ANTECUBITAL REGION STRUCTURE / Unknown 04/21/2018 5:50 AM EDT 04/21/2018 7:59 AM EDT Narrative Resulting Agency Comment Spec In Lab Chase Olvera MD MICROBIOLOGY - BL OOD ORDERABLES [facility] [place] [address] * Differential, Automated (04/21/2018 5:50 AM EDT) Neutrophil % 66.9 % [facility] Neutrophil Absolute 3.88 1.70 - 6.10 x10(3)/[facility] LABORAT[facility] Lymph % 16.8 % [facility] Lymphocytes Abs 1.0 0.9 - 3.2 x10(3)/[facility] Monocyte % 8.8 % [facility] Monocyte Abs 0.5 0.3 - 0.9 x10(3)/[facility] Eos % 5.9 % [facility] Eosinophils Abs 0.3 0.0 - 0.4 x10(3)/[facility] Basophil % 0.9 % [facility] Baso Absolute 0.0 0.0 - 0.1 x10(3)/[facility] Immature Gran % 0.70 % [facility] Comment: Immature granulocytes(IG's)percentage and absolute count will include metamyelocytes, myelocytes, and promyelocytes. Blood smears from CBCs yielding IG's will be scanned manually for concordance. If this scan disagrees with the automated IG or if promyelocytes are noted, a manual differential will be performed. Immature Gran Absolute 0.04 0.00 - 0.04 x10(3)/[facility] Blood specimen (specimen) 04/21/2018 5:50 AM EDT 04/21/2018 6:29 AM EDT Narrative Resulting Agency Comment Spec In Lab Apple Gutierrez MD HEMATOLOGY ORDERABLE S [facility] [place] [address] * (ABNORMAL) Hemogram (04/21/2018 5:50 AM EDT) [facility] White Blood Cell 5.8 4.0 - 9.5 x10(3)/mc L [facility] Red Blood Cell 2.55(L) 4.58 - 5.54 x10(6)/[facility] Hemoglobin 7.7(L) 13.7 - 16.5 gm/dL [facility] Hematocrit 24.2(L) 40.5 - 48.5 % [facility] Mean Cell Volume 94.9(H) 82.9 - 93.1 fL [facility] Mean Cell Hemoglobin 30.2 27.5 - 32.1 pg [facility] Mean Cell Hemoglobin Concentration 31.8(L) 32.0 - 35.7 gm/dL [facility] Platelet 316 145 - 357 x10(3)/[facility] RDW Standard Deviation 56.2(H) 36.0 - 45.0 [facility] LABORATORY RDW coefficient of variation 16.0(H) 11.4 - 13.8 % [facility] Mean Platelet Volume 8.2 7.6 - 12.9 [facility] LABORATORY NRBC% auto 0.0 % [facility] NRBC Absolute 0.000 0.000 - 0.000 x10(3)/[facility] Blood specimen (specimen) 04/21/2018 5:50 AM EDT 04/21/2018 6:29 AM EDT Narrative Resulting Agency Comment Spec In Lab Apple Gutierrez MD HEMATOLOGY ORDERABLE S [facility] [place] [address] * (ABNORMAL) Basic Metabolic Panel (non-fasting) (04/21/2018 [...] of body mass or the acutely ill. http://eGifter/[facility] [place] eGFR 35(L) >=60 mL/min/1. 73 m?? [facility] Comment: The eGFR was calculated using the CKD-EPI equation. As with all creatinine based estimates of kidney function, eGFR values calculated with the CKD-EPI equation are not accurate in patients with acute kidney failure, extremes of body mass or the acutely ill. http://eGifter/[facility] [place] Blood specimen (specimen) 04/21/2018 5:50 AM EDT 04/21/2018 6:29 AM EDT Narrative Resulting Agency Comment Spec In Lab Hay Sparks MD CHEMISTRY ORDERABLES Performing Organization Address City/[facility]/ZIP Co de Phone Number [facility] [place] [address] * Differential, Automated (04/20/2018 5:48 AM EDT) Neutrophil % 74.0 % [facility] Neutrophil Absolute 5.39 1.70 - 6.10 x10(3)/[facility] LABORATORY Lymph % 12.8 % [facility] Lymphocytes Abs 0.9 0.9 - 3.2 x10(3)/[facility] Monocyte % 8.2 % [facility] Monocyte Abs 0.6 0.3 - 0.9 x10(3)/[facility] Eos % 4.0 % [facility] Eosinophils Abs 0.3 0.0 - 0.4 x10(3)/[facility] Basophil % 0.5 % [facility] [...] Gran Absolute 0.04 0.00 - 0.04 x10(3)/[facility] LAB[facility] Blood specimen (specimen) 04/20/2018 5:48 AM EDT 04/20/2018 6:06 AM EDT Narrative Resulting Agency Comment Spec In Lab Apple Gutierrez MD HEMATOLOGY ORDERABLE S Performing Organization Address City/[facility]/ZIP Co de Phone Number [facility] [place] [address] * (ABNORMAL) Hemogram (04/20/2018 5:48 AM EDT) White Blood Cell 7.3 4.0 - 9.5 x10(3)/[facility] LAB[facility] Red Blood Cell 2.53(L) 4.58 - [...] LABORATORY Platelet 302 145 - 357 x10(3)/[facility] LAB[facility] RDW Standard Deviation 54.4(H) 36.0 - 45.0 [facility] LAB[facility]ORY RDW coefficient of variation 15.9(H) 11.4 - 13.8 % [facility] Mean Platelet Volume 8.5 7.6 - 12.9 [facility] LAB[facility]ORY NRBC% auto 0.0 % [facility] NRBC Absolute 0.000 0.000 - 0.000 x10(3)/[facility] Blood specimen (specimen) 04/20/2018 5:48 AM EDT 04/20/2018 6:06 AM EDT Narrative Resulting Agency Comment Spec In Lab Apple Gutierrez MD HEMATOLOGY ORDERABLE S [facility] [place] [address] * APTT (04/20/2018 5:48 AM EDT) Pathologist [facility], [...] MD HEMATOLOGY ORDERA BLES Performing Organization Address [facility] de Phone Number [facility] [place] [address] * Prothrombin Time (04/20/2018 5:48 AM EDT) [...] MD HEMATOLOGY ORDERA BLES Performing Organization Address [facility] de Phone Number [facility] [place] [address] * (ABNORMAL) Basic Metabolic Panel (non-fasting) (04/20/2018 [...] of body mass or the acutely ill. [email or web address] [place] eGFR 34(L) >=60 mL/min/1. 73 m?? [facility] Comment: The eGFR was calculated using the CKD-EPI equation. As with all creatinine based estimates of kidney function, eGFR values calculated with the CKD-EPI equation are not accurate in patients with acute kidney failure, extremes of body mass or the acutely ill. [email or web address] Blood specimen (specimen) 04/20/2018 5:48 AM EDT 04/20/2018 6:06 AM EDT Narrative Resulting Agency Comment Spec In Lab Hay Sparks MD CHEMISTRY ORDERABLES [facility] [place] [address] * Anaerobic Culture (04/19/2018 9:25 AM EDT) Anaerobic Culture No anaerobic organisms isolated [facility] Skin (tissue) specimen (specimen) 04/19/2018 9:25 AM EDT 04/19/2018 9:37 AM EDT Comment:LEFT ARM SNUFFBOX PS EUDOANEURYSM FOR AEROBIC, ANAEROBIC, GRAM STAIN Narrative Resulting Agency Comment Spec In Lab Odalis Elias MD MICROBIOLOGY - GENERAL ORDERABLES Performing Organization Address City/[facility]/ZIP Co de Phone Number [facility] [place] [address] * (ABNORMAL) Tissue culture (04/19/2018 9:25 AM [...] MICROBIOLOGY - GENERAL ORDERABLES Performing Organization Address City/[facility]/ZIP Co de Phone Number [facility] [place] [address] * Differential, Automated (04/19/2018 6:25 AM EDT) Neutrophil % 68.5 % [facility] Neutrophil Absolute 3.75 1.70 - 6.10 x10(3)/[facility] Lymph % 17.3 % [facility] Lymphocytes Abs 1.0 0.9 - 3.2 x10(3)/[facility] Monocyte % 9.3 % [facility] Monocyte Abs 0.5 0.3 - 0.9 x10(3)/[facility] Eos % 4.0 % [facility] Eosinophils Abs 0.2 0.0 - 0.4 x10(3)/[facility] Basophil % 0.7 % [facility] Baso Absolute 0.0 0.0 - 0.1 x10(3)/[facility] Immature Gran % 0.20 % [facility] Comment: Immature granulocytes(IG's)percentage and absolute count will include metamyelocytes, myelocytes, and promyelocytes. Blood smears from CBCs yielding IG's will be scanned manually for concordance. If this scan disagrees with the automated IG or if promyelocytes are noted, a manual differential will be performed. Immature Gran Absolute 0.01 0.00 - 0.04 x10(3)/[facility] Blood specimen (specimen) 04/19/2018 6:25 AM EDT 04/19/2018 6:32 AM EDT Narrative Resulting Agency Comment Spec In Lab Apple Gutierrez MD HEMATOLOGY ORDERABLE S [facility] [place] [address] * (ABNORMAL) Hemogram (04/19/2018 6:25 AM EDT) White Blood Cell 5.5 4.0 - 9.5 x10(3)/mc L [facility] Red Blood Cell 2.52(L) 4.58 - 5.54 x10(6)/mc L [facility] [...] Platelet 274 145 - 357 x10(3)/mc L [facility] RDW Standard Deviation 53.1(H) 36.0 - 45.0 fL [facility] RDW coefficient of variation 15.6(H) 11.4 - 13.8 % [facility] Mean Platelet Volume 8.3 7.6 - 12.9 fL [facility] NRBC% auto 0.0 % [facility] NRBC Absolute 0.000 0.000 - 0.000 x10(3)/mc L [facility] Blood specimen (specimen) 04/19/2018 6:25 AM EDT 04/19/2018 6:32 AM EDT Narrative Resulting Agency Comment Spec In Lab Apple Gutierrez MD HEMATOLOGY ORDERABLE S Performing Organization Address [facility] Co de Phone Number [facility] [place] [address] * APTT (04/19/2018 6:25 AM EDT) Partial [...] MD HEMATOLOGY ORDERA BLES Performing Organization Address [facility] Co de Phone Number [facility] [place] [address] * Prothrombin Time (04/19/2018 6:25 AM EDT) [...] HEMATOLOGY ORDERA BLES [facility] [place] [address] * (ABNORMAL) Basic Metabolic Panel (non-fasting) (04/19/2018 [...] of body mass or the acutely ill. [email or web address] eGFR 39(L) >=60 mL/min/1. 73 m?? [facility] Comment: The eGFR was calculated using the CKD-EPI equation. As with all creatinine based estimates of kidney function, eGFR values calculated with the CKD-EPI equation are not accurate in patients with acute kidney failure, extremes of body mass or the acutely ill. [email or web address] Blood specimen (specimen) 04/19/2018 6:25 AM EDT 04/19/2018 6:32 AM EDT Narrative Resulting Agency Comment Spec In Lab Hay Sparks MD CHEMISTRY ORDERABLES Performing Organization Address [facility] Co de Phone Number [facility] [place] [address] * Tacrolimus level (04/19/2018 6:25 AM EDT) Tacrolimus 2.8 ng/mL [facility] Comment: Trough therapeutic: ??5-15 ng/mL Performed by ultra-performance liquid chromatography tandem mass spectrometry (UPLCMS/MS). This test was developed and its performance characteristics determined by [facility]. It has not been cleared or [...] MD CHEMISTRY ORDERAB LES Performing Organization Address [facility] Co de Phone Number [facility] [place] [address] * AVF/Established Access Evaluation (04/18/2018 1:29 PM EDT) VB Text Report Department: Vascular Surgery Lab Patient: [id number] (ARNOLCHRISTY COLLADO) CPT: 24149 ICD10: N18.6;R57.8 Referring Physician: CHASE OLVERA ?? [...] LABORATORY Neutrophil Absolute 4.29 1.70 - 6.10 x10(3)/[facility] Lymph % 19.6 % [facility] Lymphocytes Abs 1.2 0.9 - 3.2 x10(3)/[facility] Monocyte % 8.2 % [facility] Monocyte Abs 0.5 0.3 - 0.9 x10(3)/[facility] Eos % 3.9 % [facility] Eosinophils Abs 0.2 0.0 - 0.4 x10(3)/[facility] Basophil % 0.5 % [facility] Blood specimen (specimen) 04/18/2018 5:26 AM EDT 04/18/2018 5:39 AM EDT Narrative Resulting Agency Comment Spec In Lab Apple Gutierrez MD HEMATOLOGY ORDERABLE S [facility] [place] [address] * (ABNORMAL) Hemogram (04/18/2018 5:26 AM EDT) [...] [facility] NRBC% auto 0.0 % [facility] NRBC Absolute 0.000 0.000 - 0.000 x10(3)/mc L [facility] Blood specimen (specimen) 04/18/2018 5:26 AM EDT 04/18/2018 5:39 AM EDT Narrative Resulting Agency Comment Spec In Lab Apple Gutierrez MD HEMATOLOGY ORDERABLE S Performing Organization Address [facility]/ZIP Co de Phone Number [facility] [place] [address] * APTT (04/18/2018 5:26 AM EDT) Partial [...] MD HEMATOLOGY ORDERA BLES Performing Organization Address City/[facility]/ZIP Co de Phone Number [facility] [place] [address] * Prothrombin Time (04/18/2018 5:26 AM EDT) [...] HEMATOLOGY ORDERA BLES [facility] [place] [address] * (ABNORMAL) Basic Metabolic Panel (non-fasting) (04/18/2018 [...] of body mass or the acutely ill. [email or web address] eGFR 35(L) >=60 mL/min/1. 73 m?? [facility] Comment: The eGFR was calculated using the CKD-EPI equation. As with all creatinine based estimates of kidney function, eGFR values calculated with the CKD-EPI equation are not accurate in patients with acute kidney failure, extremes of body mass or the acutely ill. [email or web address] Blood specimen (specimen) 04/18/2018 5:26 AM EDT 04/18/2018 5:39 AM EDT Narrative Resulting Agency Comment Spec In Lab Hay Sparks MD CHEMISTRY ORDERABLES Performing Organization Address [facility]/ZIP Co de Phone Number [facility] [place] [address] * ABORH Recheck Status (04/17/2018 9:07 AM EDT) ABORH Type Recheck Completed [facility] Blood specimen (specimen) 04/17/2018 9:07 AM EDT 04/17/2018 9:22 AM EDT Narrative Resulting Agency Comment Spec In Lab Tim Ogden MD BLOOD BANK LAB ORDE ABDIAS Performing Organization Address City/[facility]/ZIP Co de Phone Number [facility] [place] [address] * Antibody screen (04/17/2018 9:07 AM EDT) Ab Screen Interp Negative [facility] Expires at [id number] on: 04/20/2018 [facility] Blood specimen (specimen) 04/17/2018 9:07 AM EDT 04/17/2018 9:22 AM EDT Narrative Resulting Agency Comment Spec In Lab Tim Ogden MD BLOOD BANK LAB ORDOctaviano CALERO [facility] [place] [address] * ABO/Rh Typing (04/17/2018 9:07 AM EDT) ABORH Type A Pos [facility] Blood specimen (specimen) 04/17/2018 9:07 AM EDT 04/17/2018 9:22 AM EDT Narrative Resulting Agency Comment Spec In Lab Tim Ogden MD BLOOD BANK LAB RYAN CAELRO Performing Organization Address City/[facility]/ZIP Co de Phone Number [facility] [place] [address] * Differential, Automated (04/17/2018 4:43 AM EDT) Neutrophil % 64.8 % [facility] Neutrophil Absolute 3.62 1.70 - 6.10 x10(3)/[facility] Lymph % 18.6 % [facility] Lymphocytes Abs 1.0 0.9 - 3.2 x10(3)/[facility] Monocyte % 10.0 % [facility] Monocyte Abs 0.6 0.3 - 0.9 x10(3)/[facility] Eos % 5.0 % [facility] Eosinophils Abs 0.3 0.0 - 0.4 x10(3)/[facility] Basophil % 0.9 % [facility] Baso Absolute 0.0 0.0 - 0.1 x10(3)/[facility] Immature Gran % 0.70 % [facility] Comment: Immature granulocytes(IG's)percentage and absolute count will include metamyelocytes, myelocytes, and promyelocytes. Blood smears from CBCs yielding IG's will be scanned manually for concordance. If this scan disagrees with the automated IG or if promyelocytes are noted, a manual differential will be performed. Immature Gran Absolute 0.04 0.00 - 0.04 x10(3)/[facility] Blood specimen (specimen) 04/17/2018 4:43 AM EDT 04/17/2018 5:09 AM EDT Narrative Resulting Agency Comment Spec In Lab Apple Gutierrez MD HEMATOLOGY ORDERABLE S [facility] [place] [address] * (ABNORMAL) Hemogram (04/17/2018 4:43 AM EDT) White Blood Cell 5.6 4.0 - 9.5 x10(3)/[facility] Red Blood Cell 2.47(L) 4.58 - 5.54 x10(6)/[facility] Hemoglobin 7.5(L) 13.7 - 16.5 gm/dL [facility] Hematocrit 22.9(L) 40.5 - 48.5 % [facility] Mean Cell Volume 92.7 82.9 - 93.1 [facility] Mean Cell Hemoglobin 30.4 27.5 - 32.1 pg [facility] Mean Cell Hemoglobin Concentration 32.8 32.0 - 35.7 gm/dL [facility] Platelet 282 145 - 357 x10(3)/[facility] RDW Standard Deviation 53.0(H) 36.0 - 45.0 [facility] RDW coefficient of variation 15.6(H) 11.4 - 13.8 % [facility] Mean Platelet Volume 8.3 7.6 - 12.9 [facility] NRBC% auto 0.0 % [facility] NRBC Absolute 0.000 0.000 - 0.000 x10(3)/[facility] Blood specimen (specimen) 04/17/2018 4:43 AM EDT 04/17/2018 5:09 AM EDT Narrative Resulting Agency Comment Spec In Lab Apple Gutierrez MD HEMATOLOGY ORDERABLE S Performing Organization Address [facility] Co de Phone Number [facility] [place] [address] * APTT (04/17/2018 4:43 AM EDT) Partial [...] ORDERA BLES Performing Organization Address [facility] de Phone Number [facility] [place] [address] * Prothrombin Time (04/17/2018 4:43 AM EDT) [...] MD HEMATOLOGY ORDERA BLES Performing Organization Address [facility] Co de Phone Number [facility] [place] [address] * (ABNORMAL) Basic Metabolic Panel (non-fasting) (04/17/2018 [...] of body mass or the acutely ill. [email or web address] [place] eGFR 36(L) >=60 mL/min/1. 73 m?? [facility] Comment: The eGFR was calculated using the CKD-EPI equation. As with all creatinine based estimates of kidney function, eGFR values calculated with the CKD-EPI equation are not accurate in patients with acute kidney failure, extremes of body mass or the acutely ill. [email or web address] [place] Blood specimen (specimen) 04/17/2018 4:43 AM EDT 04/17/2018 5:09 AM EDT Narrative Resulting Agency Comment Spec In Lab Hay Sparks MD CHEMISTRY ORDERABLES Performing Organization Address City/[facility]/[place] [address] * (ABNORMAL) Differential, Automated (04/16/2018 4:17 AM EDT) Neutrophil % 59.4 % [facility] Neutrophil Absolute 3.07 1.70 - 6.10 x10(3)/mc L [facility] Lymph % 24.4 % [facility] Lymphocytes Abs 1.3 0.9 - 3.2 x10(3)/ L [facility] Monocyte % 10.3 % [facility] Monocyte Abs 0.5 0.3 - 0.9 x10(3)/[facility] Eos % 4.5 % [facility] Eosinophils Abs 0.2 0.0 - 0.4 x10(3)/[facility] Basophil % 0.4 % [facility] Baso Absolute 0.0 0.0 - 0.1 x10(3)/[facility] Immature Gran % 1.00 % [facility] [...] [facility] [place]/ZIP Co [place] [address] * (ABNORMAL) Hemogram (04/16/2018 4:17 AM EDT) White Blood Cell 5.2 4.0 - 9.5 x10(3)/[facility] Red Blood Cell 2.62(L) 4.58 - 5.54 x10(6)/[facility] Hemoglobin 7.9(L) 13.7 - 16.5 gm/dL [facility] Hematocrit 24.9(L) 40.5 - 48.5 % [facility] Mean Cell Volume 95.0(H) 82.9 - 93.1 [facility] Mean Cell Hemoglobin 30.2 27.5 - 32.1 pg [facility] Mean Cell Hemoglobin Concentration 31.7(L) 32.0 - 35.7 gm/dL [facility] Platelet 288 145 - 357 x10(3)/[facility] RDW Standard Deviation 52.6(H) 36.0 - 45.0 [facility] RDW coefficient of variation 15.4(H) 11.4 - 13.8 % [facility] Mean Platelet Volume 8.5 7.6 - 12.9 [facility] NRBC% auto 0.0 % [facility] NRBC Absolute 0.000 0.000 - 0.000 x10(3)/[facility] Blood specimen (specimen) 04/16/2018 4:17 AM EDT 04/16/2018 4:52 AM EDT Narrative Resulting Agency Comment Spec In Lab Apple Gutierrez MD HEMATOLOGY ORDERABLE S [facility] [place] [address] * APTT (04/16/2018 4:17 AM EDT) Partial [...] ORDERA BLES Performing Organization Address [facility] de Phone Number [facility] [place] [address] * Prothrombin Time (04/16/2018 4:17 AM EDT) [...] MD HEMATOLOGY ORDERA BLES Performing Organization Address [facility] Co de Phone Number [facility] [place] [address] * (ABNORMAL) Basic Metabolic Panel (non-fasting) (04/16/2018 [...] of body mass or the acutely ill. [email or web address] [place] [facility] [place] eGFR 36(L) >=60 mL/min/1. 73 m?? [facility] Comment: The eGFR was calculated using the CKD-EPI equation. As with all creatinine based estimates of kidney function, eGFR values calculated with the CKD-EPI equation are not accurate in patients with acute kidney failure, extremes of body mass or the acutely ill. [email or web address]://[email or web address] [place] [place] Blood specimen (specimen) 04/16/2018 4:17 AM EDT 04/16/2018 4:52 AM EDT Narrative Resulting Agency Comment Spec In Lab Hay Sparks MD CHEMISTRY ORDERABLES [facility] [place] [address] * APTT (04/15/2018 4:57 AM EDT) Partial [...] MD HEMATOLOGY ORDERA BLES Performing Organization Address [facility] Co de Phone Number [facility] [place] [address] * (ABNORMAL) Prothrombin Time (04/15/2018 4:57 AM [...] MD HEMATOLOGY ORDERA BLES Performing Organization Address City/[facility] Co de Phone Number [facility] [place] [address] * Differential, Automated (04/15/2018 4:47 AM EDT) Neutrophil % 59.8 % [facility] Neutrophil Absolute 2.98 1.70 - 6.10 x10(3)/[facility] Lymph % 22.4 % [facility] Lymphocytes Abs 1.1 0.9 - 3.2 x10(3)/[facility] Monocyte % 11.2 % [facility] Monocyte Abs 0.6 0.3 - 0.9 x10(3)/[facility] Eos % 5.6 % [facility] Eosinophils Abs 0.3 0.0 - 0.4 x10(3)/[facility] Basophil % 0.4 % [facility] Baso Absolute 0.0 0.0 - 0.1 x10(3)/[facility] Immature Gran % 0.60 % [facility] Blood specimen (specimen) 04/15/2018 4:47 AM EDT 04/15/2018 4:56 AM EDT Narrative Resulting Agency Comment Spec In Lab Apple Gutierrez MD HEMATOLOGY ORDERABLE S [facility] [place] [address] * (ABNORMAL) Hemogram (04/15/2018 4:47 AM EDT) [...] [facility] NRBC% auto 0.0 % [facility] NRBC Absolute 0.000 0.000 - 0.000 x10(3)/mc L [facility] Blood specimen (specimen) 04/15/2018 4:47 AM EDT 04/15/2018 4:56 AM EDT Narrative Resulting Agency Comment Spec In Lab Apple Gutierrez MD HEMATOLOGY ORDERABLE S [facility] [place] [address] * (ABNORMAL) Basic Metabolic Panel (non-fasting) (04/15/2018 [...] of body mass or the acutely ill. [email or web address] [place] eGFR 38(L) >=60 mL/min/1. 73 m?? [facility] Comment: The eGFR was calculated using the CKD-EPI equation. As with all creatinine based estimates of kidney function, eGFR values calculated with the CKD-EPI equation are not accurate in patients with acute kidney failure, extremes of body mass or the acutely ill. [email or web address] [place] Blood specimen (specimen) 04/15/2018 4:47 AM EDT 04/15/2018 4:56 AM EDT Narrative Resulting Agency Comment Spec In Lab Hay Sparks MD CHEMISTRY ORDERABLES [facility] [place] [address] * (ABNORMAL) Differential, Automated (04/14/2018 5:48 AM EDT) Neutrophil % 68.9 % [facility] Neutrophil Absolute 3.74 1.70 - 6.10 x10(3)/mc L [facility] Lymph % 15.7 % [facility] Lymphocytes Abs 0.8(L) 0.9 - 3.2 x10(3)/mc L [facility] Monocyte % 11.1 % [facility] Monocyte Abs 0.6 0.3 - 0.9 x10(3)/mc L [facility] Eos % 3.7 % [facility] Eosinophils Abs 0.2 0.0 - 0.4 x10(3)/[facility] Basophil % 0.2 % [facility] Baso Absolute 0.0 0.0 - 0.1 x10(3)/[facility] Immature Gran % 0.40 % [facility] Comment: Immature granulocytes(IG's)percentage and absolute count will include metamyelocytes, myelocytes, and promyelocytes. Blood smears from CBCs yielding IG's will be scanned manually for concordance. If this scan disagrees with the automated IG or if promyelocytes are noted, a manual differential will be performed. Immature Gran Absolute 0.02 0.00 - 0.04 x10(3)/[facility] Blood specimen (specimen) 04/14/2018 5:48 AM EDT 04/14/2018 5:59 AM EDT Narrative Resulting Agency Comment Spec In Lab Apple Gutierrez MD HEMATOLOGY ORDERABLE S [facility] [place] [address] * (ABNORMAL) Hemogram (04/14/2018 5:48 AM EDT) White Blood Cell 5.4 4.0 - 9.5 x10(3)/[facility] Red Blood Cell 2.48(L) 4.58 - 5.54 x10(6)/ L [facility] Hemoglobin 7.5(L) [...] [facility] NRBC% auto 0.0 % [facility] NRBC Absolute 0.000 0.000 - 0.000 x10(3)/mc L [facility] Blood specimen (specimen) 04/14/2018 5:48 AM EDT 04/14/2018 5:59 AM EDT Narrative Resulting Agency Comment Spec In Lab Apple Gutierrez MD HEMATOLOGY ORDERABLE S Performing Organization Address [facility] Co de Phone Number [facility] [place] [address] * APTT (04/14/2018 5:48 AM EDT) Partial [...] MD HEMATOLOGY ORDERA BLES Performing Organization Address City/[facility]/ZIP Co de Phone Number [facility] [place] [address] * (ABNORMAL) Prothrombin Time (04/14/2018 5:48 AM [...] HEMATOLOGY ORDERA BLES [facility] [place] [address] * (ABNORMAL) Basic Metabolic Panel (non-fasting) (04/14/2018 [...] of body mass or the acutely ill. [email or web address] [place] eGFR 34(L) >=60 mL/min/1. 73 m?? [facility] Comment: The eGFR was calculated using the CKD-EPI equation. As with all creatinine based estimates of kidney function, eGFR values calculated with the CKD-EPI equation are not accurate in patients with acute kidney failure, extremes of body mass or the acutely ill. [email or web address] [place] Blood specimen (specimen) 04/14/2018 5:48 AM EDT 04/14/2018 5:59 AM EDT Narrative Resulting Agency Comment Spec In Lab Hay Sparks MD CHEMISTRY ORDERABLES Performing Organization Address City/State/[facility] Co de Phone Number [facility] [place] [address] * Differential, Automated (04/13/2018 8:14 AM EDT) Neutrophil % 66.0 % [facility] Neutrophil Absolute 3.49 1.70 - 6.10 x10(3)/[facility] Lymph % 16.3 % [facility] Lymphocytes Abs 0.9 0.9 - 3.2 x10(3)/[facility] Monocyte % 10.4 % [facility] Monocyte Abs 0.6 0.3 - 0.9 x10(3)/[facility] Eos % 6.3 % [facility] Eosinophils Abs 0.3 0.0 - 0.4 x10(3)/[facility] Basophil % 0.4 % [facility] Baso Absolute 0.0 0.0 - 0.1 x10(3)/[facility] Immature Gran % 0.60 % GR[facility] [...] HEMATOLOGY ORDERABLE S [facility] [place] [address] * (ABNORMAL) Hemogram (04/13/2018 8:14 AM EDT) [facility] NRBC% auto 0.0 % [facility] NRBC Absolute 0.000 0.000 - 0.000 x10(3)/mc L [facility] Blood specimen (specimen) 04/13/2018 8:14 AM EDT 04/13/2018 8:21 AM EDT Narrative Resulting Agency Comment Spec In Lab Apple Gutierrez MD HEMATOLOGY ORDERABLE S Performing Organization Address [facility] Co de Phone Number [facility] [place] [address] * APTT (04/13/2018 8:14 AM EDT) Partial [...] MD HEMATOLOGY ORDERA BLES Performing Organization Address [facility] de Phone Number [facility] [place] [address] * (ABNORMAL) Prothrombin Time (04/13/2018 8:14 AM [...] HEMATOLOGY ORDERA BLES [facility] [place] [address] * (ABNORMAL) Basic Metabolic Panel (non-fasting) (04/13/2018 [...] of body mass or the acutely ill. [email or web address] eGFR 36(L) >=60 mL/min/1. 73 m?? [facility] Comment: The eGFR was calculated using the CKD-EPI equation. As with all creatinine based estimates of kidney function, eGFR values calculated with the CKD-EPI equation are not accurate in patients with acute kidney failure, extremes of body mass or the acutely ill. [email or web address] Blood specimen (specimen) 04/13/2018 8:14 AM EDT 04/13/2018 8:21 AM EDT Narrative Resulting Agency Comment Spec In Lab Hay Sparks MD CHEMISTRY ORDERABLES Performing Organization Address [facility] de Phone Number [facility] [place] [address] * Tacrolimus level (04/13/2018 8:14 AM EDT) Tacrolimus <2.0 ng/mL [facility] Comment: Trough therapeutic: ??5-15 ng/mL Performed by ultra-performance liquid chromatography tandem mass spectrometry (UPLCMS/MS). This test was developed and its performance characteristics determined by [facility]. It has not been cleared or approved by the FDA. The laboratory is regulated under CLIA as qualified to perform high-complexity testing. This test is used for clinical purposes. It should not be regarded as investigational or for research. Blood specimen (specimen) 04/13/2018 8:14 AM EDT 04/13/2018 9:55 AM EDT Narrative Resulting Agency Comment Spec In Lab hCase Olvera MD CHEMISTRY ORDERAB LES Performing Organization Address [facility] de Phone Number [facility] [place] [address] * (ABNORMAL) Protein/Creatinine Ratio, urine (04/13/2018 3:45 [...] Olvera MD URINE ORDERABLES Performing Organization Address [facility]/ZIP Co de Phone Number [facility] [place] [address] * (ABNORMAL) Urinalysis Microscopic Exam (04/13/2018 1:51 AM EDT) RBC, Urine 4(H) 0 - 3 /HPF [facility] WBC, Urine 1 0 - 3 /HPF [facility] Transitional Epithelial Cells, Urine <1 <=1 /HPF [facility] Hyaline Casts, Urine 4(H) 0 - 2 /LPF [facility] Urine specimen obtained by clean catch procedure (specimen) 04/13/2018 1:51 AM EDT 04/13/2018 1:58 AM EDT Narrative Resulting Agency Comment Spec In Lab Rasta Hernández MD URINE ORDERABLES Performing Organization Address [facility] Co de Phone Number [facility] [place] [address] * (ABNORMAL) Urinalysis with reflex Culture (04/13/2018 [...] Hospital LAB[facility]ATORY Appearance, Urine Dipstick Clear Clear [facility] Specific Bern Urine Automated 1.017 1.002 - 1.030 [facility] Color, Urine Dipstick Yellow Yellow [facility] Reflex to Culture No [facility] Urine specimen obtained by clean catch procedure (specimen) 04/13/2018 1:51 AM EDT 04/13/2018 1:58 AM EDT Narrative Resulting Agency Comment Spec In Lab Chase Olvera MD URINE ORDERABLES [facility] [place] [address] * MRI Angiogram Neck wo Contrast (04/12/2018 [...] atherosclerosis, NO CONTRAST TECHNIQUE: MRA of the solomon of Morales and MRA of the neck were performed without IV contrast, with kuya-dn-obxnvo technique. ?? COMPARISON: MR head 04/07/2018 FINDINGS: MRA solomon of Morales: The intracranial internal carotid arteries, vertebral arteries, basilar artery, superior cerebellar arteries are normal in course and caliber. The bilateral MARCUS, MCA, and SYNTHETIC PLASTERER are normal in course and caliber. No focal stenosis caliber change or aneurysm.. MRA neck: Suju-vk-pwgxye imaging excludes the arch. Vertebral arteries, common carotid arteries, bilateral ECA, ICA are normal in course and caliber. Procedure Note Sabrina Vargas MD - 04/12/2018 EXAMINATION: MRI ANGIOGRAM HEAD WO CONTRAST (GENERIC), MRI ANGIOGRAM NECKWO CONTRAST CLINICAL HISTORY: question intra cranial atherosclerosis, NO CONTRAST TECHNIQUE: MRA of the solomon of [place] and MRA of the neck were performed withoutIV contrast, with heid-lk-qxkmzg technique. COMPARISON: MR head 04/07/2018 FINDINGS: MRA solomon of Morales: The intracranial internal carotid arteries, vertebral arteries, basilarartery, superior cerebellar arteries are normal in course and caliber. Thebilateral MARCUS, MCA, and SYNTHETIC PLASTERER are normal in course and caliber. No focal stenosiscaliber change or aneurysm.. MRA neck: Auns-pn-yiqdci imaging excludes the arch. Vertebral arteries, common [...] atherosclerosis, NO CONTRAST TECHNIQUE: MRA of the solomon of Mor[place] and MRA of the neck were performed without IV contrast, with ofqd-ud-euahdo technique. ?? COMPARISON: MR head 04/07/2018 FINDINGS: MRA solomon of Morales: The intracranial internal carotid arteries, vertebral arteries, basilar artery, superior cerebellar arteries are normal in course and caliber. The bilateral MARCUS, MCA, and SYNTHETIC PLASTERER are normal in course and caliber. No focal stenosis caliber change or aneurysm.. MRA neck: Dnxo-ex-rsquby imaging excludes the arch. Vertebral arteries, common carotid arteries, bilateral ECA, ICA are normal in course and caliber. Procedure Note Sabrina Vargas MD - 04/12/2018 EXAMINATION: MRI ANGIOGRAM HEAD WO CONTRAST (GENERIC), MRI ANGIOGRAM NECKWO CONTRAST CLINICAL HISTORY: question intra cranial atherosclerosis, NO CONTRAST TECHNIQUE: MRA of the solomon of [place] and MRA of the neck were performed withoutIV contrast, with ohje-dq-aqasbf technique. COMPARISON: MR head 04/07/2018 FINDINGS: MRA solomon of Morales: The intracranial internal carotid arteries, vertebral arteries, basilarartery, superior cerebellar arteries are normal in course and caliber. Thebilateral MARCUS, MCA, and SYNTHETIC PLASTERER are normal in course and caliber. No focal stenosiscaliber change or aneurysm.. MRA neck: Cycn-ll-fwrqvi imaging excludes the arch. Vertebral arteries, common carotid arteries, bilateral ECA, ICA are normalin course and caliber. IMPRESSION Normal MRA of the head and neck. I have personally reviewed the image(s) and the residents interpretationand agree with the findings, Sabrina Chacko MD at 04/12/2018 5:27 PM 5:27 PM Chase Olvera MD IM MRI ORDERABLE S * Gold Tube HOLD (04/12/2018 8:40 AM EDT) [facility] Gold Hold Sample in lab. [facility] Blood specimen (specimen) Venous Draw / Unknown 04/12/2018 8:40 AM EDT 04/12/2018 9:16 AM EDT Apple Gutierrez MD CHEMISTRY ORDERABLES [facility] [place] [address] * (ABNORMAL) Differential, Automated (04/12/2018 8:40 AM EDT) Neutrophil % 65.6 % [facility] Neutrophil Absolute 3.27 1.70 - 6.10 x10(3)/[facility] Lymph % 15.6 % [facility] Lymphocytes Abs 0.8(L) 0.9 - 3.2 x10(3)/[facility] Monocyte % 11.0 % [facility] Monocyte Abs 0.6 0.3 - 0.9 x10(3)/[facility] Eos % 6.6 % [facility] Eosinophils Abs 0.3 0.0 - 0.4 x10(3)/[facility] Basophil % 0.6 % [facility] Baso Absolute 0.0 0.0 - 0.1 x10(3)/[facility] Immature Gran % 0.60 % [facility] Comment: Immature granulocytes(IG's)percentage and absolute count will include metamyelocytes, myelocytes, and promyelocytes. Blood smears from CBCs yielding IG's will be scanned manually for concordance. If this scan disagrees with the automated IG or if promyelocytes are noted, a manual differential will be performed. Immature Gran Absolute 0.03 0.00 - 0.04 x10(3)/[facility] Blood specimen (specimen) 04/12/2018 8:40 AM EDT 04/12/2018 9:15 AM EDT Narrative Resulting Agency Comment Spec In Lab Apple Gutierrez MD HEMATOLOGY ORDERABLE S [facility] [place] [address] * (ABNORMAL) Hemogram (04/12/2018 8:40 AM EDT) White Blood Cell 5.0 4.0 - 9.5 x10(3)/[facility] Red Blood Cell 2.60(L) 4.58 - [...] RDW Standard Deviation 54.2(H) 36.0 - 45.0 [facility] RDW coefficient of variation 16.0(H) 11.4 - 13.8 % [facility] Mean Platelet Volume 8.8 7.6 - 12.9 [facility] NRBC% auto 0.0 % [facility] NRBC Absolute 0.000 0.000 - 0.000 x10(3)/mc L [facility] Blood specimen (specimen) 04/12/2018 8:40 AM EDT 04/12/2018 9:15 AM EDT Narrative Resulting Agency Comment Spec In Lab Apple Gutierrez MD HEMATOLOGY ORDERABLE S [facility] [place] [address] * APTT (04/12/2018 8:40 AM EDT) Partial [...] MD HEMATOLOGY ORDERA BLES Performing Organization Address [facility] de Phone Number [facility] [place] [address] * (ABNORMAL) Prothrombin Time (04/12/2018 8:40 AM [...] MD HEMATOLOGY ORDERA BLES Performing Organization Address [facility] Co de Phone Number [facility] [place] [address] * (ABNORMAL) Basic Metabolic Panel (non-fasting) (04/12/2018 8:40 AM EDT) Glucose 113 65 - 199 mg/dL [facility] [...] of body mass or the acutely ill. [email or web address] eGFR 35(L) >=60 mL/min/1. 73 m?? [facility] Comment: The eGFR was calculated using the CKD-EPI equation. As with all creatinine based estimates of kidney function, eGFR values calculated with the CKD-EPI equation are not accurate in patients with acute kidney failure, extremes of body mass or the acutely ill. [email or web address] Blood specimen (specimen) 04/12/2018 8:40 AM EDT 04/12/2018 9:15 AM EDT Narrative Resulting Agency Comment Spec In Lab Hay Sparks MD CHEMISTRY ORDERABLES [facility] [place] [address] * ECHO COMPLETE (04/11/2018 2:53 PM EDT) EF 65 HEART[facility] SYSTEM Anatomical Region Laterality Modality Other 04/11/2018 Narrative 04/11/2018 3:21 PM EDT Amended Report Procedure: ?Transthoracic Echocardiogram Patient: ?ARNOL CHRISTY J ? (Age): 1960(57y) Med Rec#: ? [id number] ?Sex: ?M ? [place] [facility] [place]t / Wt: ??178(cm)/91.6(kg Pt. Loc: ?Adult Floor ? BSA: ?2.1 Study Date: ?? 04/11/2018 ?Pt. Type: Outpatient Tape: ? Referring: Lida Peter Reading: Tim Estrella ([id number]) Bulk Pigment Reducer: Chidi Steve [facility] Bulk Pigment Reducer 2: Yimi Norman Diagnosis: *Cerebral infarction due [...] ? Mid-Inferior ?Normal ? Mid-Inferoseptal ?Normal ? Ogema-Septal ? Normal ? Ogema-Anterior ? Normal ? Ogema-Lateral ?Normal ? Ogema-Inferior ? Normal ? Ogema-Tip ?Normal ? This report has been electronically signed by: Tim Estrella M.D. ? 04/11/2018 15:21:34 Images reviewed and interpretation verified [facility] Procedure Note Tmi Estrella MD - 04/11/2018 Amended Report Procedure: Transthoracic Echocardiogram Patient: ARNOL DU(Age): 1960(57y) Med Rec#: [id number] Sex: M [place] [facility] [place]t / Wt: 178(cm)/91.6(kg Pt. Loc: Adult Floor BSA: 2.1 Study Date: 04/11/2018 Pt. Type: Outpatient Tape: Referring: Lida Peter Reading: Tim Estrella ([id number]) Bulk Pigment Reducer: Chidi Steve [facility] Bulk Pigment Reducer 2: Yimi Norman Diagnosis: *Cerebral infarction due [...] Normal Mid-Posterolateral Normal Mid-Inferior Normal Mid-Inferoseptal Normal Ogema-Septal Normal Ogema-Anterior Normal Ogema-Lateral Normal Ogema-Inferior Normal Ogema-Tip Normal This report has been electronically signed by: Tim Estrella M.D. 04/11/2018 15:21:34 Images reviewed and interpretation verified [facility] Lida Peter MD ECHO ORDERABLES * ABORH Recheck Status (04/11/2018 6:28 AM EDT) Pathologist [facility] ABORH Type Recheck Completed [facility] Blood specimen (specimen) 04/11/2018 6:28 AM EDT 04/11/2018 6:28 AM EDT Narrative Resulting Agency Comment Spec In Lab Hanny Wiseman MD BLOOD BANK LAB ORDER KELLY [facility] [place] [address] * Antibody screen (04/11/2018 6:28 AM EDT) [facility] Ab Screen Interp Negative [facility] Expires at [id number] on: 04/14/2018 [facility] Blood specimen (specimen) 04/11/2018 6:28 AM EDT 04/11/2018 6:28 AM EDT Narrative Resulting Agency Comment Spec In Lab Hanny Wiseman MD BLOOD BANK LAB ORDER KELLY [facility] [place] [address] * ABO/Rh Typing (04/11/2018 6:28 AM EDT) ABORH Type A Pos [facility] Blood specimen (specimen) 04/11/2018 6:28 AM EDT 04/11/2018 6:28 AM EDT Narrative Resulting Agency Comment Spec In Lab Hanny Wiseman MD BLOOD BANK LAB ORDER KELLY [facility] [place] [address] * (ABNORMAL) Differential, Automated (04/11/2018 5:55 AM EDT) Neutrophil % 68.9 % [facility] Neutrophil Absolute 3.90 1.70 - 6.10 x10(3)/mc L [facility] Lymph % 14.7 % [facility] Lymphocytes Abs 0.8(L) 0.9 - 3.2 x10(3)/mc L [facility] Monocyte % 10.6 % [facility] Monocyte Abs 0.6 0.3 - 0.9 x10(3)/mc L [facility] Eos % 4.9 % [facility] Eosinophils Abs 0.3 0.0 - 0.4 x10(3)/mc L [facility] Basophil % 0.4 % [facility] [...] HEMATOLOGY ORDERABLE S [facility] [place] [address] * (ABNORMAL) Hemogram (04/11/2018 5:55 AM EDT) [facility] NRBC% auto 0.0 % [facility] NRBC Absolute 0.000 0.000 - 0.000 x10(3)/mc L [facility] Blood specimen (specimen) 04/11/2018 5:55 AM EDT 04/11/2018 6:03 AM EDT Narrative Resulting Agency Comment Spec In Lab Apple Gutierrez MD HEMATOLOGY ORDERABLE S [facility] [place] [address] * APTT (04/11/2018 5:55 AM EDT) Partial [...] MD HEMATOLOGY ORDERA BLES Performing Organization Address [facility] Co de Phone Number [facility] [place] [address] * (ABNORMAL) Prothrombin Time (04/11/2018 5:55 AM [...] MD HEMATOLOGY ORDERA BLES Performing Organization Address [facility] Co de Phone Number [facility] [place] [address] * (ABNORMAL) Basic Metabolic Panel (non-fasting) (04/11/2018 [...] of body mass or the acutely ill. [email or web address] [place] eGFR 35(L) >=60 mL/min/1. 73 m?? [facility] Comment: The eGFR was calculated using the CKD-EPI equation. As with all creatinine based estimates of kidney function, eGFR values calculated with the CKD-EPI equation are not accurate in patients with acute kidney failure, extremes of body mass or the acutely ill. [email or web address] Blood specimen (specimen) 04/11/2018 5:55 AM EDT 04/11/2018 6:04 AM EDT Narrative Resulting Agency Comment Spec In Lab Hay Sparks MD CHEMISTRY ORDERABLES [facility] [place] [address] * POCT Glucose (04/10/2018 7:56 AM EDT) Glucose, POC 119 65 - 199 mg/dL [facility] Comment: Supplemental ranges: <140 mg/dL before meals <180 mg/dL all other times of the day Blood specimen (specimen) 04/10/2018 7:56 AM EDT 04/10/2018 7:56 AM EDT Chase Olvera MD POINT OF CARE SHAZIA T ORDERABLES [facility] [place] [address] * (ABNORMAL) Differential, Automated (04/10/2018 5:35 AM EDT) Pathologist [facility] Neutrophil % 72.4 % [facility] Neutrophil Absolute 4.21 1.70 - 6.10 x10(3)/mc L [facility] Lymph % 12.7 % [facility] Lymphocytes Abs 0.7(L) 0.9 - 3.2 x10(3)/mc L [facility] Monocyte % 9.1 % [facility] Monocyte Abs 0.5 0.3 - 0.9 x10(3)/mc L [facility] Eos % 5.0 % [facility] Eosinophils Abs 0.3 0.0 - 0.4 x10(3)/mc L [facility] Basophil % 0.3 % [facility] [...] Absolute 0.03 0.00 - 0.04 x10(3)/ L [facility] Blood specimen (specimen) 04/10/2018 5:35 AM EDT 04/10/2018 6:09 AM EDT Narrative Resulting Agency Comment Spec In Lab Apple Gutierrez MD HEMATOLOGY ORDERABLE S [facility] [place] [address] * (ABNORMAL) Hemogram (04/10/2018 5:35 AM EDT) White Blood Cell 5.8 4.0 - 9.5 x10(3)/[facility] Red Blood Cell 2.44(L) 4.58 - 5.54 x10(6)/[facility] Hemoglobin 7.3(L) 13.7 - 16.5 gm/dL [facility] Hematocrit 22.0(L) 40.5 - 48.5 % [facility] Mean Cell Volume 90.2 82.9 - 93.1 fL [facility] Mean Cell Hemoglobin 29.9 27.5 - 32.1 pg [facility] Mean Cell Hemoglobin Concentration 33.2 32.0 - 35.7 gm/dL [facility] Platelet 105(L) 145 - 357 x10(3)/[facility] RDW Standard Deviation 52.6(H) 36.0 - 45.0 [facility] RDW coefficient of variation 15.9(H) 11.4 - 13.8 % [facility] Mean Platelet Volume 9.6 7.6 - 12.9 [facility] NRBC% auto 0.0 % [facility] NRBC Absolute 0.000 0.000 - 0.000 x10(3)/[facility] Blood specimen (specimen) 04/10/2018 5:35 AM EDT 04/10/2018 6:09 AM EDT Narrative Resulting Agency Comment Spec In Lab Apple Gutierrez MD HEMATOLOGY ORDERABLE S Performing Organization Address [facility] Co de Phone Number [facility] [place] [address] * APTT (04/10/2018 5:35 AM EDT) Partial [...] HEMATOLOGY ORDERA BLES Performing Organization Address [facility] de Phone Number [facility] [place] [address] * (ABNORMAL) Prothrombin Time (04/10/2018 5:35 AM [...] MD HEMATOLOGY ORDERA BLES Performing Organization Address [facility] Co de Phone Number [facility] [place] [address] * (ABNORMAL) Basic Metabolic Panel (non-fasting) (04/10/2018 [...] of body mass or the acutely ill. [email or web address] [place] eGFR 31(L) >=60 mL/min/1. 73 m?? [facility] Comment: The eGFR was calculated using the CKD-EPI equation. As with all creatinine based estimates of kidney function, eGFR values calculated with the CKD-EPI equation are not accurate in patients with acute kidney failure, extremes of body mass or the acutely ill. [email or web address] [place] Blood specimen (specimen) 04/10/2018 5:35 AM EDT 04/10/2018 6:09 AM EDT Narrative Resulting Agency Comment Spec In Lab Hay Sparks MD CHEMISTRY ORDERABLES Performing Organization Address [facility] Co de Phone Number [facility] [place] [address] * POCT Glucose (04/09/2018 8:26 PM EDT) Glucose, POC 137 65 - 199 mg/dL [facility] Comment: Supplemental ranges: <140 mg/dL before meals <180 mg/dL all other times of the day Blood specimen (specimen) 04/09/2018 8:26 PM EDT 04/09/2018 8:26 PM EDT Chase Olvera MD POINT OF CARE SHAZIA T ORDERABLES Performing Organization Address [facility] Co de Phone Number [facility] [place] [address] * APTT (04/09/2018 8:25 PM EDT) Partial [...] MD HEMATOLOGY ORDERABLE S Performing Organization Address [facility]/ZIP Co de Phone Number [facility] [place] [address] * (ABNORMAL) Prothrombin Time (04/09/2018 8:25 PM [...] HEMATOLOGY ORDERABLE S [facility] [place] [address] * Transfuse thawed plasma (04/09/2018 6:04 PM [...] PRODUCT O RDERABLES [facility] [place] [address] * (ABNORMAL) APTT (04/09/2018 10:03 AM EDT) [...] MD HEMATOLOGY ORDERABLE S Performing Organization Address [facility] de Phone Number [facility] [place] [address] * (ABNORMAL) Prothrombin Time (04/09/2018 10:03 AM [...] MD HEMATOLOGY ORDERABLE S Performing Organization Address [facility] de Phone Number [facility] [place] [address] * Differential, Automated (04/09/2018 3:05 AM EDT) Neutrophil % 74.9 % [facility] Neutrophil Absolute 6.08 1.70 - 6.10 x10(3)/[facility] LABORATORY Lymph % 12.2 % [facility] Lymphocytes Abs 1.0 0.9 - 3.2 x10(3)/[facility] LABORATORY Monocyte % 8.7 % [facility] Monocyte Abs 0.7 0.3 - 0.9 x10(3)/[facility] LABOR[facility]ORY Eos % 3.2 % [facility] Eosinophils Abs 0.3 0.0 - 0.4 x10(3)/[facility] Basophil % 0.5 % [facility] [...] Gran Absolute 0.04 0.00 - 0.04 x10(3)/[facility] LABOR[facility] Blood specimen (specimen) 04/09/2018 3:05 AM EDT 04/09/2018 3:13 AM EDT Narrative Resulting Agency Comment Spec In Lab Apple Gutierrez MD HEMATOLOGY ORDERABLE S [facility] [place] [address] * (ABNORMAL) Hemogram (04/09/2018 3:05 AM EDT) [facility] NRBC% auto 0.0 % [facility] NRBC Absolute 0.000 0.000 - 0.000 x10(3)/mc L [facility] Blood specimen (specimen) 04/09/2018 3:05 AM EDT 04/09/2018 3:13 AM EDT Narrative Resulting Agency Comment Spec In Lab Apple Gutierrez MD HEMATOLOGY ORDERABLE S [facility] [place] [address] * (ABNORMAL) Basic Metabolic Panel (non-fasting) (04/09/2018 [...] of body mass or the acutely ill. [email or web address] [place] eGFR 26(L) >=60 mL/min/1. 73 m?? [facility] Comment: The eGFR was calculated using the CKD-EPI equation. As with all creatinine based estimates of kidney function, eGFR values calculated with the CKD-EPI equation are not accurate in patients with acute kidney failure, extremes of body mass or the acutely ill. [email or web address] [place] Blood specimen (specimen) 04/09/2018 3:05 AM EDT 04/09/2018 3:13 AM EDT Narrative Resulting Agency Comment Spec In Lab Hay Sparks MD CHEMISTRY ORDERABLES Performing Organization Address City/[facility]/ZIP Co de Phone Number [facility] [place] [phone] * Lavender Tube HOLD (04/08/2018 8:10 PM EDT) Lavender Hold Sample in lab. [facility] Blood specimen (specimen) Venous Draw / Unknown 04/08/2018 8:10 PM EDT 04/08/2018 8:26 PM EDT John Rose MD HEMATOLOGY ORDERABLE S Performing Organization Address City/[facility]/ZIP Co de Phone Number [facility] [place] [address] * (ABNORMAL) Phenytoin level, total and free [...] developed and its performance characteristics determined by [facility]. It has not been cleared or approved by the FDA. The laboratory is regulated under CLIA as qualified to perform high-complexity testing. This test is used for clinical purposes. It should not be regarded as investigational or for research. Phenyt Free % 13(H) 8 - 12 % [facility] Comment: This test was developed and its performance characteristics determined by [facility]. It has not been cleared or [...] MD CHEMISTRY ORDERABLES [facility] [place] [address] * Transfuse RBC (04/08/2018 4:59 PM EDT) Lida Peter MD NURSING TREATMENT OR DERABLES - BLOOD ADMIN * Transfuse RBC (04/08/2018 4:59 PM EDT) Lida Peter MD NURSING TREATMENT OR DERABLES - BLOOD ADMIN * EEG awake, asleep, drowsy, routine (04/08/2018 3:45 PM EDT) Narrative Beth Colunga - 04/08/2018 3:45 PM EDT Beth Colunga ? 04/08/2018 ??3:45 PM [facility] Department of Neurology In Patient [...] channel digitized electroencephalogram was performed in the [facility]physiology [facility]. The 10/20 international system of electrode placement was used and bipolar and referential electrode montages were recorded. ??In addition to EEG the patient was monitored for EKG and lateral/vertical eye movements. Video was recorded during the session. The duration of the recording was 30 minutes. BATTER MIXER'S REPORT: Performed by: AT Patient was not sleep deprived. Sleep was not attained. Photic stimulation was performed. Hyperventilation was not performed. Effort was was not adequate. Movement and other artifact was not significant. Comments: none Lida Peter MD NEUROLOGY ORDERABLES * Carotid Duplex, Bilateral (04/08/2018 2:49 PM EDT) VB Text Report Department: Vascular Surgery Lab Patient: [id number] (CHRISTY AMBROSE) CPT: 15299 ICD10: I63.9 Referring Physician: LIDA PETER ?? [...] Peter MD VASCULAR ORDERABLES Performing Organization Address [facility] Co de Phone Number VASCU[employer] * (ABNORMAL) Levetiracetam level (04/08/2018 1:55 PM EDT) Levetiracetam Lvl (NOVEMBER) 47.4(H) 12.0 - 46.0 mcg/mL [facility] Comment: ADDITIONAL INFORMATION This test was developed and its performance characteristics determined by [facility] in a manner consistent with CLIA requirements. This test has not been cleared or approved by the U.S. Food and Drug Administration. Test Performed by: [facility] - [address] [address] Blood specimen (specimen) 04/08/2018 1:55 PM EDT 04/08/2018 3:54 PM EDT Narrative Resulting Agency Comment Spec In Lab Lida Peter MD LAB SEND OUT ORDERAB LES Performing Organization Address [facility] Co de Phone Number [facility] [place] [address] * Prepare RBC (04/08/2018 11:15 AM EDT) Dispensed? No [facility] Blood specimen (specimen) 04/08/2018 11:15 AM EDT 04/08/2018 11:11 AM EDT Lida Peter MD BLOOD BANK PRODUCT O RDERABLES Performing Organization Address [facility] Co de Phone Number [facility] [place] [address] * Prepare RBC (04/08/2018 11:15 AM EDT) Dispensed? Yes [facility] Blood specimen (specimen) 04/08/2018 11:15 AM EDT 04/08/2018 11:11 AM EDT Lida Peter MD BLOOD BANK PRODUCT O RDERABLES Performing Organization Address [facility] Co de Phone Number [facility] [place] [address] * (ABNORMAL) APTT (04/08/2018 10:45 AM EDT) [...] MD HEMATOLOGY ORDERABLE S Performing Organization Address [facility] Co de Phone Number [facility] [place] [address] * (ABNORMAL) Prothrombin Time (04/08/2018 10:45 AM [...] [facility] [place]/ZIP Co de Phone Number [facility] [place] [address] * (ABNORMAL) CK (04/08/2018 10:45 AM EDT) Creatine Kinase 646(H) 0 - 200 unit/L [facility] Blood specimen (specimen) 04/08/2018 10:45 AM EDT 04/08/2018 10:55 AM EDT Narrative Resulting Agency Comment Spec In Lab Lida Peter MD CHEMISTRY ORDERABLES Performing Organization Address [facility] Co de Phone Number [facility] [place] [address] * (ABNORMAL) Hemoglobin and Hematocrit, blood (04/08/2018 [...] [facility] [place]/ZIP Co de Phone Number [facility] [place] [address] * Tacrolimus level (04/08/2018 8:30 AM EDT) Tacrolimus 2.1 ng/mL [facility] Comment: Trough therapeutic: ??5-15 ng/mL Performed by ultra-performance liquid chromatography tandem mass spectrometry (UPLCMS/MS). This test was developed and its performance characteristics determined by [facility]. It has not been cleared or [...] Peter MD CHEMISTRY ORDERABLES Performing Organization Address [facility] [place] [place] [address] * Prepare RBC (04/08/2018 4:55 AM EDT) Dispensed? Yes [facility] Blood specimen (specimen) 04/08/2018 4:55 AM EDT 04/08/2018 4:59 AM EDT Lida Peter MD BLOOD BANK PRODUCT O RDERABLES Performing Organization Address [facility] [place] [place] [address] * Blue Tube HOLD (04/08/2018 4:05 AM EDT) Blue Hold Sample in lab. [facility] Blood specimen (specimen) Venous Draw / Unknown 04/08/2018 4:05 AM EDT 04/08/2018 4:21 AM EDT Apple Gutierrez MD HEMATOLOGY ORDERABLE S Performing Organization Address [facility] Co de Phone Number [facility] [place] [address] * (ABNORMAL) Differential, Automated (04/08/2018 4:05 AM EDT) Neutrophil % 81.8 % [facility] Neutrophil Absolute 7.13(H) 1.70 - 6.10 x10(3)/ L [facility] Lymph % 8.0 % [facility] Lymphocytes Abs 0.7(L) 0.9 - 3.2 x10(3)/[facility] Monocyte % 7.9 % [facility] Monocyte Abs 0.7 0.3 - 0.9 x10(3)/[facility] Eos % 1.8 % [facility] Eosinophils Abs 0.2 0.0 - 0.4 x10(3)/[facility] Basophil % 0.2 % [facility] Baso Absolute 0.0 0.0 - 0.1 x10(3)/[facility] Immature Gran % 0.30 % [facility] Comment: Immature granulocytes(IG's)percentage and absolute count will include metamyelocytes, myelocytes, and promyelocytes. Blood smears from CBCs yielding IG's will be scanned manually for concordance. If this scan disagrees with the automated IG or if promyelocytes are noted, a manual differential will be performed. Immature Gran Absolute 0.03 0.00 - 0.04 x10(3)/[facility] Blood specimen (specimen) 04/08/2018 4:05 AM EDT 04/08/2018 4:21 AM EDT Narrative Resulting Agency Comment Spec In Lab Apple Gutierrez MD HEMATOLOGY ORDERABLE S [facility] [place] [address] * (ABNORMAL) Hemogram (04/08/2018 4:05 AM EDT) White Blood Cell 8.7 4.0 - 9.5 x10(3)/[facility] Red Blood Cell 2.26(L) 4.58 - 5.54 x10(6)/[facility] Hemoglobin 6.8(L) 13.7 - 16.5 [...] Mean Platelet Volume 9.7 7.6 - 12.9 [facility] NRBC% auto 0.0 % [facility] NRBC Absolute 0.000 0.000 - 0.000 x10(3)/mc L [facility] Blood specimen (specimen) 04/08/2018 4:05 AM EDT 04/08/2018 4:21 AM EDT Narrative Resulting Agency Comment Spec In Lab Apple Gutierrez MD HEMATOLOGY ORDERABLE S [facility] [place] [address] * (ABNORMAL) Basic Metabolic Panel (non-fasting) (04/08/2018 [...] of body mass or the acutely ill. [email or web address] eGFR 26(L) >=60 mL/min/1. 73 m?? [facility] Comment: The eGFR was calculated using the CKD-EPI equation. As with all creatinine based estimates of kidney function, eGFR values calculated with the CKD-EPI equation are not accurate in patients with acute kidney failure, extremes of body mass or the acutely ill. [email or web address] Blood specimen (specimen) 04/08/2018 4:05 AM EDT 04/08/2018 4:21 AM EDT Narrative Resulting Agency Comment Spec In Lab Hay Sparks MD CHEMISTRY ORDERABLES [facility] [place] [address] * MRI Brain wo Contrast (04/07/2018 9:11 [...] thoracic and lumbar spine were performed at [facility] on 04/06/2018. COMPARISON: CT chest [...] thoracic and lumbar spine were performed at [facility] on 04/06/2018. COMPARISON: CT chest [...] TEST O RDERABLES [facility] [place] [address] * (ABNORMAL) Cardiac Enzymes (LEB/CGP) (04/07/2018 5:55 AM EDT) Pathologist [facility] Troponin-T 0.15(H) 0.00 - 0.00 ng/mL [facility] [...] ischemia ?? New or presumed new significant PJ-xlgguxu-X wave (ST-T) changes or new left bundle [...] additional sample may be indicated. Reference: Third Belfair Definition of Myocardial Infarction. Journal of the [employer] 2012;60:1581-98 Creatine Kinase 700(H) 0 - 200 unit/L [facility] Blood specimen (specimen) 04/07/2018 5:55 AM EDT 04/07/2018 6:34 AM EDT Narrative Resulting Agency Comment Spec In Lab Lida Peter MD CHEMISTRY ORDERABLES Performing Organization Address [facility]/ZIP Co de Phone Number [facility] [place] [address] * (ABNORMAL) CK (04/07/2018 5:55 AM EDT) Creatine Kinase 699(H) 0 - 200 unit/L [facility] Blood specimen (specimen) 04/07/2018 5:55 AM EDT 04/07/2018 6:03 AM EDT Narrative Resulting Agency Comment Spec In Lab Lida Peter MD CHEMISTRY ORDERABLES Performing Organization Address City/[facility]/ZIP Co de Phone Number [facility] [place] [address] * (ABNORMAL) Hemoglobin and Hematocrit, blood (04/07/2018 [...] [facility] [place]/ZIP Co de Phone Number [facility] [place] [address] * Lactate, whole blood, send to lab (Leb/CGP) (04/07/2018 5:55 AM EDT) Lactate WB 1.2 0.5 - 2.2 mmol/L [facility] Blood specimen (specimen) 04/07/2018 5:55 AM EDT 04/07/2018 6:03 AM EDT Narrative Resulting Agency Comment Spec In Lab Lida Peter MD CHEMISTRY ORDERABLES Performing Organization Address [facility] Co de Phone Number [facility] [place] [address] * (ABNORMAL) Basic Metabolic Panel (non-fasting) (04/07/2018 4:30 AM EDT) Pathologist [facility] Glucose 124 65 - 199 mg/dL [facility] [...] of body mass or the acutely ill. http://[email or web address] [place] eGFR 29(L) >=60 mL/min/1. 73 m?? [facility] Comment: The eGFR was calculated using the CKD-EPI equation. As with all creatinine based estimates of kidney function, eGFR values calculated with the CKD-EPI equation are not accurate in patients with acute kidney failure, extremes of body mass or the acutely ill. [email or web address]://[email or web address] [place] Blood specimen (specimen) 04/07/2018 4:30 AM EDT 04/07/2018 4:34 AM EDT Narrative Resulting Agency Comment Spec In Lab Lida Peter MD CHEMISTRY ORDERABLES Performing Organization Address [facility] Co de Phone Number [facility] [place] [address] * POCT Glucose (04/07/2018 3:35 AM EDT) Glucose, POC 131 65 - 199 mg/dL [facility] Comment: Supplemental ranges: <140 mg/dL before meals <180 mg/dL all other times of the day Blood specimen (specimen) 04/07/2018 3:35 AM EDT 04/07/2018 3:35 AM EDT Lida Peter MD POINT OF CARE TEST O RDERABLES Performing Organization Address City/[facility]/ZIP Co de Phone Number [facility] [place] [address] * Lactate, whole blood, send to lab (Leb/CGP) (04/07/2018 12:15 AM EDT) Lactate WB 1.5 0.5 - 2.2 mmol/L [facility] Blood specimen (specimen) 04/07/2018 12:15 AM EDT 04/07/2018 12:21 AM EDT Narrative Resulting Agency Comment Spec In Lab Lida Peter MD CHEMISTRY ORDERABLES Performing Organization Address [facility]/ZIP Co de Phone Number [facility] [place] [address] * (ABNORMAL) CK (04/07/2018 12:15 AM EDT) Creatine Kinase 608(H) 0 - 200 unit/L [facility] Comment:result rechecked-RR Blood specimen (specimen) 04/07/2018 12:15 AM EDT 04/07/2018 12:21 AM EDT Narrative Resulting Agency Comment Spec In Lab Lida Peter MD CHEMISTRY ORDERABLES Performing Organization Address [facility] Co de Phone Number [facility] [place] [address] * (ABNORMAL) Hemoglobin and Hematocrit, blood (04/07/2018 12:15 AM EDT) [facility] Hemoglobin 7.9(L) 13.7 - 16.5 gm/dL [facility] Hematocrit 23.1(L) 40.5 - 48.5 % [facility] Blood specimen (specimen) 04/07/2018 12:15 AM EDT 04/07/2018 12:21 AM EDT Narrative Resulting Agency Comment Spec In Lab Lida Peter MD HEMATOLOGY ORDERABLE S Performing Organization Address [facility] Co de Phone Number [facility] [place] [address] * (ABNORMAL) Basic Metabolic Panel (non-fasting) (04/07/2018 12:15 AM EDT) Glucose 167 65 - 199 mg/dL [facility] [...] of body mass or the acutely ill. http://[email or web address] [place]nk[place] eGFR 31(L) >=60 mL/min/1. 73 m?? [facility] Comment: The eGFR was calculated using the CKD-EPI equation. As with all creatinine based estimates of kidney function, eGFR values calculated with the CKD-EPI equation are not accurate in patients with acute kidney failure, extremes of body mass or the acutely ill. http://[email or web address] [place] Blood specimen (specimen) 04/07/2018 12:15 AM EDT 04/07/2018 12:21 AM EDT Narrative Resulting Agency Comment Spec In Lab Lida Peter MD CHEMISTRY ORDERABLES Performing Organization Address [facility] Co de Phone Number [facility] [place] [address] * POCT Glucose (04/06/2018 8:30 PM EDT) Glucose, POC 177 65 - 199 mg/dL [facility] Comment: Supplemental ranges: <140 mg/dL before meals <180 mg/dL all other times of the day Blood specimen (specimen) 04/06/2018 8:30 PM EDT 04/06/2018 8:30 PM EDT Lida Peter MD POINT OF CARE TEST O RDERABLES Performing Organization Address [facility] Co de Phone Number [facility] [place] [address] * Request For 2nd Read CT Chest [...] the chest, abdomen, and pelvis performed at [facility] on 04/06/2018. 5 mm and [...] Spleen: Normal. Kidneys/Adrenals: The RIGHT and LEFT [place] kidneys are severely atrophic. The patient status [...] and pelvis performed at an [facility] on 04/06/2018. 5 mm and 1 [...] Spleen: Normal. Kidneys/Adrenals: The RIGHT and LEFT [place] kidneys are severely atrophic.The patient status post [...] [facility] Lymph % 4.8 % [facility] Lymphocytes Abs 0.4(L) 0.9 - 3.2 x10(3)/mc L [facility] Monocyte % 9.1 % [facility] Monocyte Abs 0.8 0.3 - 0.9 x10(3)/mc L [facility] Eos % 0.0 % [facility] Eosinophils Abs 0.0 0.0 - 0.4 x10(3)/mc L [facility] Basophil % 0.0 % [facility] [...] Absolute 0.04 0.00 - 0.04 x10(3)/mc L [facility] Blood specimen (specimen) 04/06/2018 5:40 PM EDT 04/06/2018 6:01 PM EDT Narrative Resulting Agency Comment Spec In Lab Natalya Minaya MD HEMATOLOGY ORDERABLE S [facility] [place] [address] * (ABNORMAL) Hemogram (04/06/2018 5:40 PM EDT) White Blood Cell 8.6 4.0 - 9.5 x10(3)/mc L [facility] Red Blood Cell 2.56(L) 4.58 - 5.54 x10(6)/[facility] Hemoglobin 7.8(L) 13.7 - 16.5 gm/dL [facility] Hematocrit 23.1(L) 40.5 - 48.5 % [facility] Mean Cell Volume 90.2 82.9 - 93.1 [facility] Mean Cell Hemoglobin 30.5 27.5 - 32.1 pg [facility] Mean Cell Hemoglobin Concentration 33.8 32.0 - 35.7 gm/dL [facility] Platelet 95(L) 145 - 357 x10(3)/ L [facility] RDW Standard Deviation 53.6(H) 36.0 - 45.0 [facility] RDW coefficient of variation 16.6(H) 11.4 - 13.8 % [facility] Mean Platelet Volume 9.5 7.6 - 12.9 [facility] NRBC% auto 0.0 % [facility] NRBC Absolute 0.000 0.000 - 0.000 x10(3)/ L [facility] Blood specimen (specimen) 04/06/2018 5:40 PM EDT 04/06/2018 6:01 PM EDT Narrative Resulting Agency Comment Spec In Lab Natalya Minaya MD HEMATOLOGY ORDERABLE S Performing Organization Address [facility]/ZIP Co de Phone Number [facility] [place] [address] * Phosphorus (04/06/2018 5:40 PM EDT) Pathologist [facility] Phosphorus 3.3 2.5 - 4.5 mg/dL [facility] Blood specimen (specimen) 04/06/2018 5:40 PM EDT 04/06/2018 6:01 PM EDT Narrative Resulting Agency Comment Spec In Lab Lida Peter MD CHEMISTRY ORDERABLES Performing Organization Address [facility] Co de Phone Number [facility] [place] [address] * (ABNORMAL) Magnesium (04/06/2018 5:40 PM EDT) [facility] Magnesium 0.60(L) 0.69 - 1.07 mmol/L [facility] Blood specimen (specimen) 04/06/2018 5:40 PM EDT 04/06/2018 6:01 PM EDT Narrative Resulting Agency Comment Spec In Lab Lida Peter MD CHEMISTRY ORDERABLES Performing Organization Address [facility] Co de Phone Number [facility] [place] [address] * (ABNORMAL) Cardiac Enzymes (LEB/CGP) (04/06/2018 5:40 PM EDT) [facility] Troponin-T 0.20(H) 0.00 - 0.00 ng/mL [facility] [...] ischemia ?? New or presumed new significant [id number]-Y wave (ST-T) changes or new left bundle [...] additional sample may be indicated. Reference: Third [place] Definition of Myocardial Infarction. Journal of the [employer] 2012;60:1581-98 Creatine Kinase 249(H) 0 - 200 unit/L [facility] Blood specimen (specimen) 04/06/2018 5:40 PM EDT 04/06/2018 6:01 PM EDT Narrative Resulting Agency Comment Spec In Lab Lida Peter MD CHEMISTRY ORDERABLES [facility] [place] [address] * (ABNORMAL) CMP w/fasting Glucose (04/06/2018 5:40 [...] of Diabetes Mellitus, Position Statement from the [employer]. ??Diabetes Care, Volume 33, Supplement [...] of body mass or the acutely ill. http://eGifter/[facility] [place] eGFR 32(L) >=60 mL/min/1. 73 m?? [facility] Comment: The eGFR was calculated using the CKD-EPI equation. As with all creatinine based estimates of kidney function, eGFR values calculated with the CKD-EPI equation are not accurate in patients with acute kidney failure, extremes of body mass or the acutely ill. [email or web address] Blood specimen (specimen) 04/06/2018 5:40 PM EDT 04/06/2018 6:01 PM EDT Narrative Resulting Agency Comment Spec In Lab Lida Peter MD CHEMISTRY ORDERABLES Performing Organization Address [facility] Co de Phone Number [facility] [place] [address] * APTT (04/06/2018 5:40 PM EDT) Partial [...] MD HEMATOLOGY ORDERABLE S Performing Organization Address [facility] Co de Phone Number [facility] [place] [address] * (ABNORMAL) Prothrombin Time (04/06/2018 5:40 PM [...] Narrative Resulting Agency Comment Spec In Lab Liad Peter MD HEMATOLOGY ORDERABLE S [facility] [place] [address] * (ABNORMAL) BLOOD GAS 2 ARTERIAL (04/06/2018 5:24 PM EDT) pH, Arterial 7.29(Crit ical) 7.35 - 7.45 [facility] Comment:Noted by instrument maker and repairer. PCO2, Arterial 31(L) 35 - 45 [...] [facility] FIO2 Art 50 % [facility] PF Ratio Art 130 [facility] Temp Art 34.8 Celsius [facility] Blood specimen (specimen) 04/06/2018 5:24 PM EDT 04/06/2018 5:24 PM EDT Lida Peter MD POINT OF CARE TEST O RDERAMARISOL Performing Organization Address [facility] Co de Phone Number [facility] [place] [address] * POCT Glucose (04/06/2018 5:10 PM EDT) Glucose, POC 147 65 - 199 mg/dL [facility] Comment: Supplemental ranges: <140 mg/dL before meals <180 mg/dL all other times of the day Blood specimen (specimen) 04/06/2018 5:10 PM EDT 04/06/2018 5:10 PM EDT Lida Peter MD POINT OF CARE TEST O RDERAMARISOL Performing Organization Address [facility] Co de Phone Number [facility] [place] [address] * (ABNORMAL) BLOOD GAS 2 ARTERIAL (04/06/2018 4:04 PM EDT) pH, Arterial 7.27(Criti constance) 7.35 - 7.45 [facility] LABORATORY Comment:Noted by instrument maker and repairer. PCO2, Arterial 34(L) 35 - 45 [...] TEST O RDERABLES [facility] [place] [address] * Scan, Peripheral Blood (04/06/2018 3:53 PM EDT) Pathologist [facility] Plat estimate Decreased [facility] RBC Morphology Abnormal [facility] Ovalocytes 1-5 /HPF [facility] Webster Cells 1-5 /HPF [facility] Blood specimen (specimen) 04/06/2018 3:53 PM EDT 04/06/2018 4:05 PM EDT Narrative Resulting Agency Comment Spec In Lab Lida Peter MD HEMATOLOGY ORDERABLE S [facility] [place] [address] * (ABNORMAL) Differential, Automated (04/06/2018 3:53 PM EDT) [facility] Neutrophil % 80.4 % [facility] Neutrophil Absolute 8.28(H) 1.70 - 6.10 x10(3)/mc L [facility] Lymph % 6.8 % [facility] Lymphocytes Abs 0.7(L) 0.9 - 3.2 x10(3)/mc L [facility] Monocyte % 11.9 % [facility] Monocyte Abs 1.2(H) 0.3 - 0.9 x10(3)/mc L [facility] Eos % 0.0 % [facility] Eosinophils Abs 0.0 0.0 - 0.4 x10(3)/mc L [facility] Basophil % 0.1 % [facility] [...] HEMATOLOGY ORDERABLE S [facility] [place] [address] * (ABNORMAL) Hemogram (04/06/2018 3:53 PM EDT) [...] Platelet 96(L) 145 - 357 x10(3)/mc L [facility] RDW Standard Deviation 53.3(H) 36.0 - 45.0 fL [facility] RDW coefficient of variation 16.2(H) 11.4 - 13.8 % [facility] Mean Platelet Volume 9.0 7.6 - 12.9 fL [facility] NRBC% auto 0.0 % [facility] NRBC Absolute 0.000 0.000 - 0.000 x10(3)/mc L [facility] Blood specimen (specimen) 04/06/2018 3:53 PM EDT 04/06/2018 4:05 PM EDT Narrative Resulting Agency Comment Spec In Lab Lida Peter MD HEMATOLOGY ORDERABLE S Performing Organization Address [facility] Co de Phone Number [facility] [place] [address] * APTT (04/06/2018 3:53 PM EDT) Partial [...] MD HEMATOLOGY ORDERABLE S Performing Organization Address [facility] Co de Phone Number [facility] [place] [address] * (ABNORMAL) Prothrombin Time (04/06/2018 3:53 PM [...] HEMATOLOGY ORDERABLE S [facility] [place] [address] * (ABNORMAL) BLOOD GAS 2 ARTERIAL (04/06/2018 3:41 PM EDT) pH, Arterial 7.22(Criti constance) 7.35 - 7.45 [facility] Comment:Noted by instrument maker and repairer. PCO2, Arterial 39 35 - 45 [...] [facility] Comment: Noted by instrument maker and repairer. Note: ??Total bilirubin higher than 20 [...] CARE TEST O RDERABLES Performing Organization Address City/State/[facility] Co de Phone Number [facility] [place] [address] * (ABNORMAL) BLOOD GAS 2 ARTERIAL (04/06/2018 3:13 PM EDT) pH, Arterial 7.18(Criti constance) 7.35 - 7.45 [facility] Comment:Noted by instrument maker and repairer. PCO2, Arterial 40 35 - 45 [...] TEST O RDERABLES [facility] [place] [address] * (ABNORMAL) BLOOD GAS 2 ARTERIAL (04/06/2018 2:48 PM EDT) pH, Arterial 7.27(Criti constance) 7.35 - 7.45 [facility] Comment:Noted by instrument maker and repairer. PCO2, Arterial 36 35 - 45 [...] TEST O RDERABLES [facility] [place] [address] * (ABNORMAL) BLOOD GAS 2 ARTERIAL (04/06/2018 2:46 PM EDT) pH, Arterial 7.27(Criti constance) 7.35 - 7.45 [facility] Comment:Noted by instrument maker and repairer. PCO2, Arterial 36 35 - 45 [...] TEST O RDERABLES [facility] [place] [address] * (ABNORMAL) BLOOD GAS 2 ARTERIAL (04/06/2018 2:16 PM EDT) pH, Arterial 7.29(Criti constance) 7.35 - 7.45 [facility] Comment:Noted by instrument maker and repairer. PCO2, Arterial 38 35 - 45 [...] [facility] Comment: Noted by instrument maker and repairer. Please note: Patients with WBC >100,000 [...] CARE TEST O RDERABLES Performing Organization Address [facility] Co de Phone Number [facility] [place] [address] * Anaerobic Culture (04/06/2018 2:15 PM EDT) Anaerobic Culture No anaerobic organisms isolated [facility] Fluid specimen (specimen) 04/06/2018 2:15 PM EDT 04/06/2018 2:34 PM EDT Comment:CULTURE LEFT ARM WOU ND Narrative Resulting Agency Comment Spec In Lab Lida Peter MD MICROBIOLOGY - GENER AL ORDERABLES Performing Organization Address [facility] Co de Phone Number [facility] [place] [address] * Body Fluid Culture, Aerobic (04/06/2018 2:15 [...] - GENER AL ORDERABLES Performing Organization Address [facility] Co de Phone Number [facility] [place] [address] * (ABNORMAL) BLOOD GAS 2 ARTERIAL (04/06/2018 1:53 PM EDT) pH, Arterial 7.24(Criti constance) 7.35 - 7.45 [facility] Comment:Noted by instrument maker and repairer. PCO2, Arterial 38 35 - 45 [...] [facility] Comment: Noted by instrument maker and repairer. Please note: Patients with WBC >100,000 [...] POINT OF CARE TEST O RDERABLES [facility] [place] [address] * Request For 2nd Read CT Head [...] MD URINE ORDERABLES [facility] [place] [address] * Rapid Drug Screen w/o Confirmation, Urine [...] marijuana metabolites screen detects the THC metabolite (03-dwq-4-carboxy-delta 9-THC) at concentrations >20 ng/mL. A ? [...] MD CHEMISTRY ORDERABLES [facility] [place] [address] * (ABNORMAL) Urinalysis with reflex Culture (04/06/2018 [...] [facility] Appearance, Urine Dipstick Hazy(A) Clear [facility] Specific [place] Urine Automated 1.023 1.002 - 1.030 [facility] Color, Urine Dipstick Yellow Yellow [facility] Reflex to Culture No [facility] Urine specimen obtained by clean catch procedure (specimen) 04/06/2018 1:25 PM EDT 04/06/2018 1:30 PM EDT Narrative Resulting Agency Comment Spec In Lab Erwin Hernandez MD URINE ORDERABLES [facility] [place] [address] * Rapid Drug Screen, Urine (RAUL Request) (04/06/2018 1:25 PM EDT) RAUL Conf Requested No [facility] Comment: Collection date/time has been modified to: 13:25:00. ??Previous collection date/time: 13:03:00. Corrected from No [NA] on 04/06/18 01:32 by Crystal Mueller Requested See Comment [facility] [...] Hernandez MD URINE ORDERABLES Performing Organization Address City/[facility]/ZIP Co de Phone Number [facility] [place] [address] * CK (04/06/2018 1:15 PM EDT) Creatine Kinase 168 0 - 200 unit/L [facility] Blood specimen (specimen) Venous Draw / Unknown 04/06/2018 1:15 PM EDT 04/06/2018 2:22 PM EDT Narrative Resulting Agency Comment Spec In Lab Kavon Rob MD CHEMISTRY ORDERABLES Performing Organization Address City/[facility]/ZIP Co de Phone Number [facility] [place] [address] * Scan, Peripheral Blood (04/06/2018 1:15 PM EDT) Plat estimate Normal [facility] RBC Morphology Abnormal [facility] Ovalocytes 1-5 /HPF [facility] Webster Cells 1-5 /HPF [facility] Blood specimen (specimen) 04/06/2018 1:15 PM EDT 04/06/2018 1:24 PM EDT Narrative Resulting Agency Comment Spec In Lab Fabian uBrkett MD HEMATOLOGY ORDERABLE S [facility] [place] [address] * ABORH Recheck Status (04/06/2018 1:15 PM EDT) ABORH Type Recheck Completed [facility] Blood specimen (specimen) 04/06/2018 1:15 PM EDT 04/06/2018 1:20 PM EDT Narrative Resulting Agency Comment Spec In Lab Fabian Burkett MD BLOOD BANK LAB ORDER KELLY Performing Organization Address City/[facility]/ZIP Co de Phone Number [facility] [place] [address] * Blue Tube HOLD (04/06/2018 1:15 PM EDT) Blue Hold Sample in lab. [facility] Blood specimen (specimen) Venous Draw / Unknown 04/06/2018 1:15 PM EDT 04/06/2018 1:26 PM EDT Fabian Burkett MD HEMATOLOGY ORDERABLE S Performing Organization Address City/[facility]/ZIP Co de Phone Number [facility] [place] [address] * Gold Tube HOLD (04/06/2018 1:15 PM EDT) Gold Hold Sample in lab. [facility] Blood specimen (specimen) Venous Draw / Unknown 04/06/2018 1:15 PM EDT 04/06/2018 1:25 PM EDT Fabian Burkett MD CHEMISTRY ORDERABLES [facility] [place] [address] * Blue Tube HOLD (04/06/2018 1:15 PM EDT) Blue Hold Sample in lab. [facility] Blood specimen (specimen) Venous Draw / Unknown 04/06/2018 1:15 PM EDT 04/06/2018 1:26 PM EDT Fabian Burkett MD HEMATOLOGY ORDERABLE S [facility] [place] [address] * (ABNORMAL) Differential, Automated (04/06/2018 1:15 PM EDT) Neutrophil % 78.7 % [facility] Neutrophil Absolute 12.22(H) 1.70 - 6.10 x10(3)/ L [facility] Lymph % 10.3 % [facility] Lymphocytes Abs 1.6 0.9 - 3.2 x10(3)/[facility] Monocyte % 9.8 % [facility] Monocyte Abs 1.5(H) 0.3 - 0.9 x10(3)/ L [facility] Eos % 0.1 % [facility] Eosinophils Abs 0.0 0.0 - 0.4 x10(3)/[facility] Basophil % 0.2 % [facility] Baso Absolute 0.0 0.0 - 0.1 x10(3)/[facility] Immature Gran % 0.90 % GRACE [...] HEMATOLOGY ORDERABLE S [facility] [place] [address] * (ABNORMAL) Hemogram (04/06/2018 1:15 PM EDT) [...] RDW Standard Deviation 53.2(H) 36.0 - 45.0 [facility] RDW coefficient of variation 15.9(H) 11.4 - 13.8 % [facility] Mean Platelet Volume 9.0 7.6 - 12.9 [facility] NRBC% auto 0.0 % [facility] NRBC Absolute 0.000 0.000 - 0.000 x10(3)/mc L [facility] Blood specimen (specimen) 04/06/2018 1:15 PM EDT 04/06/2018 1:24 PM EDT Narrative Resulting Agency Comment Spec In Lab Fabian Burkett MD HEMATOLOGY ORDERABLE S [facility] [place] [address] * Antibody screen (04/06/2018 1:15 PM EDT) Ab Screen Interp Negative [facility] Expires at [id number] on: 04/09/2018 [facility] Blood specimen (specimen) 04/06/2018 1:15 PM EDT 04/06/2018 1:20 PM EDT Narrative Resulting Agency Comment Spec In Lab Fabian Burkett MD BLOOD BANK LAB ORDER KELLY [facility] [place] [address] * ABO/Rh Typing (04/06/2018 1:15 PM EDT) ABORH Type A Pos [facility] Comment: 04/06/2018 15:10 ??CHASDM ABO/Rh determined (Acc# [id number]) to be A pos. Blood specimen (specimen) 04/06/2018 1:15 PM EDT 04/06/2018 1:20 PM EDT Narrative Resulting Agency Comment Spec In Lab Fabian Burkett MD BLOOD BANK LAB ORDER KELLY Performing Organization Address City/[facility]/ZIP Co de Phone Number [facility] [place] [address] * Fibrinogen (04/06/2018 1:15 PM EDT) [facility] Fibrinogen 255 200 - 393 mg/dL [facility] Comment: A fibrinogen level >100 mg/dL is adequate for hemostasis in most patients without underlying bleeding disorders. Blood specimen (specimen) 04/06/2018 1:15 PM EDT 04/06/2018 1:24 PM EDT Narrative Resulting Agency Comment Spec In Lab Erwin Hernandez MD HEMATOLOGY ORDERAB LES [facility] [place] [address] * Ethanol Level (04/06/2018 1:15 PM EDT) Ethanol <100 <=99 mg/L [facility] Comment: Greater than 800 mg/L (0.08%) should be considered intoxicated. 3400 to 4500 mg/L (0.34 - 0.45%) is considered severe intoxication. Greater than 5500 mg/L (0.55%) is usually fatal. Blood specimen (specimen) 04/06/2018 1:15 PM EDT 04/06/2018 1:24 PM EDT Narrative Resulting Agency Comment Spec In Lab Erwin Hernandez MD CHEMISTRY ORDERABL ES Performing Organization Address [facility] Co de Phone Number [facility] [place] [address] * APTT (04/06/2018 1:15 PM EDT) Partial [...] MD HEMATOLOGY ORDERAB LES Performing Organization Address [facility]/ZIP Co de Phone Number [facility] [place] [address] * (ABNORMAL) Prothrombin Time (04/06/2018 1:15 PM [...] HEMATOLOGY ORDERAB LES [facility] [place] [address] * (ABNORMAL) Basic Metabolic Panel (non-fasting) (04/06/2018 [...] of body mass or the acutely ill. http://e[employer]/[facility] [place] eGFR 42(L) >=60 mL/min/1. 73 m?? [facility] Comment: The eGFR was calculated using the CKD-EPI equation. As with all creatinine based estimates of kidney function, eGFR values calculated with the CKD-EPI equation are not accurate in patients with acute kidney failure, extremes of body mass or the acutely ill. http://e[employer]ifter/[facility] [place] Blood specimen (specimen) 04/06/2018 1:15 PM EDT 04/06/2018 1:24 PM EDT Narrative Resulting Agency Comment Spec In Lab Erwin Hernandez MD CHEMISTRY ORDERABL ES Performing Organization Address City/State/[facility] Co de Phone Number [facility] [place] [address] * XR Chest AP and Pelvis AP [...] 7.45 [facility] Comment:Noted by instrument maker and repairer. PCO2, Arterial 51(H) 35 - 45 mmHg [facility] PO2, Arterial 38(Critica l) 85 - 104 mmHg [facility] Comment:Noted by instrument maker and repairer. Bicarbonate, Arterial 16.7(L) 20.0 - 26.0 [...] [facility] Comment: Noted by instrument maker and repairer. Please note: Patients with WBC >100,000 [...] CARE TEST ORDERABLES [facility] [place] [address] * Prepare RBC (04/06/2018 1:05 PM EDT) Dispensed? Yes [facility] Blood specimen (specimen) 04/06/2018 1:05 PM EDT 04/06/2018 1:03 PM EDT Erwin Hernandez MD BLOOD BANK PRODUCT ORDERABLES Performing Organization Address [facility] Co de Phone Number [facility] [place] [address] * Film Library- Storage Only CT Chest Abdomen Pelvis (04/06/2018 12:05 AM EDT) Narrative [facility] - 04/06/2018 2:07 PM EDT This exam is for storage only and is auto-finalizing. Fabian Burkett MD [facility] FILM LIBRARY ORD ERABLES Performing Organization Address [facility] de Phone Number [place], [place] * SCAN DOC: IMPLANTABLE DEVICES (04/06/2018 12:00 AM EDT) Narrative 04/06/2018 12:00 AM EDT Ordered by an unspecified provider. Scanning Provider MEDIA MGR SCAN EXT O RDR/RSLT * Film Library- Storage Only CT Head And Spine (04/06/2018 12:00 AM EDT) Narrative [facility] - 04/06/2018 1:32 PM EDT This exam is for storage only and is auto-finalizing. Fabian Burkett MD [facility] FILM LIBRARY ORD ERABLES Performing Organization Address [facility] de Phone Number [place], [place] * SCAN DOC: LAB (04/06/2018 12:00 AM EDT) Narrative 04/06/2018 12:00 AM EDT Ordered by an unspecified provider. Scanning Provider MEDIA MGR SCAN EXT O RDR/RSLT * SCAN DOC: BRAND LEAD (04/06/2018 12:00 AM EDT) Anatomical Region Laterality [...] Lalitha Mack, SAVANNA)2058 (Given - Provider: Torri Angeol RN) 0900 (Given - Provider: Domi Rodriguez, [...] Routine documented in this encounter Care Teams Assembler Engine Relationship Specialty Start Date End Date Carroll Garcia DO [address] [place] [address] PCP - General 09/23/11 10/20/22 documented as of this encounter
--- OUTSIDE RECORDS SUMMARY | 2024-05-23 13:31 | XMS_ITS | Encounter Summary ---
Author Organization [facility] Address [facility] [place] [address] Care Team Providers Care Transitional Studies Instructor Name Role Phone AlfredoCarroll allison Primary Care Provider [phone] Encounter Details Date Type Department Care Team (Latest Contact Info) Description 08/18/2017 8:45 PM EST - 08/18/2017 11:59 PM [facility] Hospital [place] [address] Discharge Disposition: Home Social History Tobacco Use [...] (08/18/2017 12:30 PM EST) Tacrolimus 4.7 ng/mL [facility] Comment: Trough therapeutic: ??5-15 ng/mL Performed by ultra-performance liquid chromatography tandem mass spectrometry (UPLCMS/MS). This test was developed and its performance characteristics determined by [facility]. It has not been cleared or [...] ORDERAB LES [facility] [place] [address] documented in this encounter Visit Diagnoses Not on filedocumented in this encounter Care Teams Transitional Studies Instructor Relationship Specialty Start Date End Date Carroll Fuentes DO [address] [place] [address] PCP - General 09/23/11 10/20/22 documented as of this encounter
--- OUTSIDE RECORDS SUMMARY | 2024-05-23 13:31 | XMS_ITS | Encounter Summary ---
Author Organization [facility] Address [facility] [place] [address] Care Team Providers Care Communications Project Lead Name Role Phone AlfredoCarroll allison Primary Care Provider [phone] Reason for Visit * Reason Comments Kidney Transplant Follow-up Immunotherapy Chronic Kidney Disease Encounter Details Date Type Department Care Team (Latest Contact Info) Description 09/23/2017 12:00 PM EDT Office Visit [place] [address] Anup Hawkins MD [facility] [address] [place] [address] Kidney replaced by transplant; IgA nephropathy; Aftercare following organ transplant; Prophylactic immunotherapy; group home current use of immunosuppressive drug; H/O [...] Hawkins MD - 09/23/2017 12:00 PM EDT [facility] Transplant Nephrology Follow Up ? 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 Dr. Mills will schedule a CT abdomen and CXR in 6 months. ? Interim Hx: [place] [facility] [place] after recent TRISTIAN, Upper GI Bleed and diagnosis of mass in left table mountain kidney. 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 Patient remains on [...] for diabetics, every 5 for non diabetics [place] kidney ultrasound looking for renal cell CA, [...] from 09/23/2017 in Solid Organ Transplant at [place] Weight 80.8 kg (178 lb 3.2 oz) [...] UA Latest Ref Range: Clear Clear Spec Inez UA Latest Ref Range: 1.002 - 1.030 [...] transplant Prophylactic immunotherapy Need for prophylactic immunotherapy technician terminal and repeater current use of immunosuppressive drug H/O kidney transplant Kidney replaced by transplant Primary papillary carcinoma of left kidney documented in this encounter Care Teams Communications Project Lead Relationship Specialty Start Date End Date Carroll Garcia DO [address] [place] [address] PCP - General 09/23/11 10/20/22 documented as of this encounter
--- OUTSIDE RECORDS SUMMARY | 2024-05-23 13:32 | XMS_ITS | Encounter Summary ---
Author Organization [facility] Address [facility] [place] [address] Care Team Providers Care Sustainability Project Manager Name Role Phone AlfredoCarroll allison Primary Care Provider [phone] Encounter Details Date Type Department Care Team (Late st Contact Info) Description 05/28/2017 [place] [id number] Antony Will MD [facility] [place] [address] Social History Tobacco Use Types Packs/Day Years [...] on filedocumented in this encounter Care Teams Sustainability Project Manager Relationship Specialty Start Date End Date Carroll Fuentes DO [address] [place] [address] PCP - General 09/23/11 10/20/22 documented as of this encounter
--- OUTSIDE RECORDS SUMMARY | 2024-05-23 13:32 | XMS_ITS | Encounter Summary ---
Author Organization [facility] Address [facility] [place] [address] Care Team Providers Care Vocational Nursing Instructor Name Role Phone Carroll Fuentes DO Primary Care Provider Encounter Details Date Type Department Care Team (Late st Contact Info) Description 06/23/2017 [place] [address] Jax Mills MD [facility] [place] [address] Social History Tobacco Use Types Packs/Day Years [...] on filedocumented in this encounter Care Teams Vocational Nursing Instructor Relationship Specialty Start Date End Date Carroll Fuentes DO [address] [place] [address] PCP - General 09/23/11 10/20/22 documented as of this encounter
--- OUTSIDE RECORDS SUMMARY | 2024-05-23 13:32 | XMS_ITS | Encounter Summary ---
Author Organization [facility] [place] [address] Care Team Providers Care Sales Commissions Analyst Name Role Phone AlfredoCarroll allison Primary Care Provider [phone] Reason for Referral * Diagnostic Test (Routine) - Closed Specialty Diagnoses / Procedures Referred By Shashi ko Referred To Contact Radiology Diagnoses Renal cell carcinoma, unspecified laterality Procedures CT Chest & Abdomen wo Contrast Jax Mills MD [facility] [address] [facility] [place] [address] Referral ID Status Reason Start Date Expiration Date V isits Requested Visits Authorized [id number] Closed Specialty Service Requested 09/17/2017 12/16/2017 1 1 Reason for Visit * Reason Comments Follow Up Surgery Encounter Details Date Type Department Care Team (Late st Contact Info) Description 06/23/2017 1:20 PM EST [place] [address] Jax Mills MD [facility] [place] [address] Renal cell carcinoma, unspecified laterality [...] performed by Miguel Angel Moreno MD at [facility] MAIN OR ??? PRO EXC PAROTD, TOTAL, UNILAT RAD NECK Left 02/05/2016 @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, TOTAL, WITH UNILATERAL RADICAL NECK DISSECTION performed by Miguel Angel Moreno MD at [facility] MAIN OR ??? PRO EXC SKIN MALIG 3.1-4CM FACE, FACIAL Left 02/05/2016 EXC MALIGNANT LESION, 3.1 TO 4.0CM, FACE performed by Miguel Angel Moreno MD at [facility] MAIN OR ? ? PRO EXC SKIN MALIG >4CM TRUNK, ARM, LEG 04/19/2012 EXC MALIGNANT LESION, MICHAEL > 4.0CM, TRUNK performed by SABRINA SANCHEZ at [facility] MAIN OR ??? PRO LAP, RADICAL NEPHRECTOMY Left 05/31/2017 @LAPAROSCOPY, RADICAL NEPHRECTOMY (WRVU 25.06) performed by Jax Mills MD at [facility] MAIN OR ??? PRO REPAIR INTERMEDIATE S/A/T/E 2.6-7.5 CM 04/19/2012 REPAIR INTERMEDIATE WOUND, (NO HANDS OR FEET) 2.6 TO 7.5CM, UPPER EXTREMITY performed by SABRINA SANCHEZ at [facility] MAIN OR ? ? PRO SPLIT GRFT, HEAD, FAC, HAND, FEET <100SQCM N/A 02/20/2016 SPLIT THICKNESS SKIN SPLIT GRAFT,100SQ CM OR LESS, NECK performed by Miguel Angel Moreno MD at [facility] MAIN OR ??? PRO UPPER GI ENDOSCOPY, BIOPSY N/A 05/13/2017 [facility] by Aditya Barrera MD at [facility] ENDOSCOPY ??? PRO VASCULAR SURGERY PROCEDURE UNLIST Left 11/20/2015 LIGATION\REPAIR AV FISTULA performed by Camilo Ireland MD at [facility] OR ??? PRO VASCULAR SURGERY PROCEDURE UNLIST Left 11/20/2015 EXCISION VEIN FROM HAND performed by Camilo Ireland MD at [facility] MAIN OR ??? US RENAL TRANSPLANT [...] Carlos Grubbs Verified: ??06/08/2017 ?Pathologist Performed at: ??-[facility] [place], [place], [place] DISCUSSION Some morphologic features including oncocytic [...] ordered and will be ??reported separately. A/P: [id number] papillary type 2 RCC. Will schedule a [...] Mediastinum and lupe: No lymphadendopathy. Abdomen LEFT [place] [facility]: Interval nephrectomy. RIGHT [place] [facility] : Atrophic, unchanged. Transplanted RIGHT pelvic [...] Mediastinum and lupe: No lymphadendopathy. Abdomen LEFT [place] [facility]: Interval nephrectomy. RIGHT [place] [facility] : Atrophic, unchanged. Transplanted RIGHT pelvic [...] laterality documented in this encounter Care Teams Sales Commissions Analyst Relationship Specialty Start Date End Date Carroll Fuentes DO [address] [place] [address] PCP - General 09/23/11 10/20/22 documented as of this encounter
--- OUTSIDE RECORDS SUMMARY | 2024-05-23 13:32 | XMS_ITS | Encounter Summary ---
[facility] [place] [address] Care Team Providers Care Crown Perforator Operator Name Role Phone AlfredoCarroll allison Primary Care Provider [phone] Encounter Details Date Type Department Care Team (Late st Contact Info) Description 06/23/2017 12:20 PM EST Laboratory Appointment Lab [address] [place] [address] Renal mass Social History Tobacco Use Types [...] EST) Glucose 84 65 - 199 mg/dL [facility] Comment:Diabetes: >=200 mg/d L plus symptoms Blood Urea Nitrogen 55(H) 10 - 20 mg/dL [facility] Creatinine 2.55(H) 0.80 - 1.50 mg/dL [facility] Sodium 146(H) 135 - 145 mmol/L [facility] Potassium 5.7(H) 3.5 - 5.0 mmol/L [facility] Comment: Please note: ??Patients with WBC >100,000 may have falsely elevated Potassium levels. ??For accurate Potassium quantification in these patients send serum separator tube (gold top) for subsequent determinations. ??Contact the Clinical Chemistry Laboratory if there are any questions. Chloride 114(H) 98 - 107 mmol/L [facility] Carbon Dioxide 18(L) 22 - 31 mmol/L [facility] Anion Gap 14 5 - 15 mmol/L [facility] Calcium 8.5 8.5 - 10.5 mg/dL [facility] Est Glomerular Filtration Rate 26(L) >=60 [facility] Comment: The reported eGFR should be multiplied by 1.2 for patients. The MDRD is not an appropriate measure of renal function for patients with body mass extremes or in patients with acute kidney failure. http://[employer].The Exchange/DHnkdep http://Rocket.La/DHMCnkf Blood specimen (specimen) 06/23/2017 12:21 PM EST 06/23/2017 12:32 PM EST Narrative Resulting Agency Comment Spec In Lab Jax Mills MD CHEMISTRY ORDERABL ES [facility] [place] [address] documented in this encounter Visit Diagnoses Diagnosis Renal mass Unspecified disorder of kidney and ureter documented in this encounter Care Teams Crown Perforator Operator Relationship Specialty Start Date End Date Carroll Fuentes DO [address] [place] [address] PCP - General 09/23/11 10/20/22 documented as of this encounter
--- OUTSIDE RECORDS SUMMARY | 2024-05-23 13:32 | XMS_ITS | Encounter Summary ---
[place] [address] Care Team Providers Care Plastics Sheet Finishing Press Operator Name Role Phone Carroll Fuentes DO Primary Care Provider Reason for Visit * Reason Onset Date Comments Medication Refill 05/31/2017 Encounter Details Date Type Department Care Team (Late st Contact Info) Description 05/31/2017 Refill [place] [address] Crystal Brown CMA H/O kidney transplant Social [...] transplant documented in this encounter Care Teams Plastics Sheet Finishing Press Operator Relationship Specialty Start Date End Date Carroll Fuentes DO [address] [place] [address] PCP - General 09/23/11 10/20/22 documented as of this encounter
--- OUTSIDE RECORDS SUMMARY | 2024-05-23 13:32 | XMS_ITS | Encounter Summary ---
Author Organization [facility] Address [facility] [place] [address] Care Team Providers Care Manager Operations Research Name Role Phone AlfredoCarroll allison Primary Care Provider [phone] Reason for Visit * Auth/Cert Specialty Diagnoses / Procedures Referred By Shashi ko Referred To Contact Diagnoses Renal mass renal mass UNK Procedures PRO LAP, RADICAL NEPHRECTOMY @[email or web address], RADICAL NEPHRECTOMY (WRVU .) Referral ID Status Reason Start Date Expiration Date Visits Re quested Visits Authorized [id number] 1 1 Encounter Details Date Type Department Care Team (Late st Contact Info) Description 05/31/2017 10:30 AM EST - 05/31/2017 3:38 PM EST Surgery [place] [id number] Gianna Tavarez MD [facility] [place] [address] @LAPAROSCOPY, RADICAL NEPHRECTOMY (WRVU .) Social History [...] Adama Ram Patient Age: 56 y.o. Language: Tuvaluan Race: White Ethnicity: Not nor Admit date: [...] found to havenew renal masses in his capitan grande band left kidney. He denies any flank pain or hematuria. He has lost ~ 20lbs over the last 2 months (lack of appetite). He denies any family hx of RCC. Renal function has been stable (GFR b/w 23-31 recently). Hospital Course: Patient was admitted electively to [facility] via the same day surgery program and [...] by Dr. Fuentes. You have refills at [facility]. 30 mg Refills: 0 [...] 5 PM and weekends, and ask for documentation liaison Urologist. Coumadin and Lovenox: Please continue to take Lovenox 30 mg daily as prescribed by Dr. Fuentes. Please restart your regular dose of Coumadin on Wednesday, 06/07. Dr. Fuentes's office would like for you to have your INR checked on Wednesday, 06/08, at [facility]. They will advise you further on Lovenox andCoumadin dosing. Your [facility] in [facility] says that you have a [...] 12:20 PM LAB, THREE L Lab 3L [facility] [phone] 06/23/2017 1:20 PM Gianna Tavarez MD Urology at [place] [phone] 06/28/2017 8:40 AM LAB, [address] [facility] [phone] 06/28/2017 9:40 AM Anup Hawkins MD Transplant at [place] [phone] 07/22/2017 3:00 PM Chanel Smith MD Dermatology at [facility] [phone] 11/17/2017 9:20 AM LAB, THREE L Lab 3L [facility] [phone] 11/17/2017 10:40 AM Anup Hawkins MD Transplant at [place] [phone] Future Orders Complete By Expires Basic Metabolic Panel (non-fasting) [LAB15 Custom] 06/16/2017 (Approximate) 12/16/2017 Process Instructions: INCLUDES: Calcium, BUN, Creat, GFR, Glucose, Lytes Scheduling Instructions: Comments: Questions: Primary Care Provider: Carroll Fuentes DO [phone] Follow-up Recommendations for Providers: Please see discharge [...] was managed by the Urology Team at [facility]. If you have any questions or concerns, please feel free to contact us. Provider Contact Information: Urology Clinic: [facility] (after business hours): Associated attestation - Gianna [...] 5 PM and weekends, and ask for documentation liaison Urologist. Coumadin and Lovenox: Please continue to take Lovenox 30 mg daily as prescribed by Dr. Fuentes. Please restart your regular dose of Coumadin on Wednesday, 06/07. Dr. Fuentes's office would like for you to have your INR checked on Wednesday, 06/08, at [facility]. They will advise you further on Lovenox andCoumadin dosing. Your [facility] in [facility] says that you have a [...] by Dr. Fuentes. You have refills at [facility] in [facility]. 06/02/2017 06/28/2017 warfarin (COUMADIN) 5 [...] he gets his daily Lovenox injections at [facility], in infusion or the lab, usually about 2pm. This RN unable to reach anyone in the infusion or lab departments, messages left. PANCHITO Aquino updated on situation. RN Alternative Energy Engineer Anastasia Frey attempting to reach someone directly to determine Lovenox injections can be given consistently at [facility] as patient describes, including holiday and weekend. 1330: Addendum. Nursing unable to verify with [facility] that anyone there gives patient his daily Lovenox injections. PANCHITO Smith made aware and accompanied this RN and RN Alternative Energy Engineer to patient's room to discuss further. Patient's [...] Tylenol effective for pain management. 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 * [...] was instructed to contact Regional Anesthesia Team ([id number]) for any unresolved sensory or motor deficits. ?? Thank you for the opportunity to have participated in the care of this patient. JESENIA RADFORD MD Regional Team pager [phone] * Devi Smith PA - 06/01/2017 8:53 AM EST Urology IP Progress Note ID: Adama Ram is a 56 y.o. 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 Doing well post-op. Goals [...] radical nephrectomy for renal masses in his capitan grande band left kidney. No recent changes to health [...] radical nephrectomy for renal masses in his capitan grande band left kidney. Patient appears fit forsurgery. The [...] his brother Lucas Ram who resides in [place]; pt's 86 year old mother Ilda listed as second POA. Current Coping/Education/Information Needs: Seems to be coping well with no complaints at time of interview. Current Functional Ability: SBA Functional Status Prior to Admission: Independent. Home Environment: Pt lives in a second floor apartment building located in [facility]. Pt's mother Ilda lives two doors [...] Able to manage Rx co-pays. Preferred Pharmacy: [facility] in [place], [place]. Other: na Primary Care Provider: Carroll Fuentes DO [phone] Patient/Caregiver Goals of Treatment: Effective pain control; [...] of care planning. Padmini Ruiz RN, BSN Java Tech Lead-[facility] Pager # [phone] [email or web address] * Plan of Care - Leslie Turner [...] Status 0 -- Score 50 -- OTHER Troibio Fall Risk High -- Goal: Infection Control [...] Danisha Haines - 05/31/2017 3:00 PM EST [facility] Operative Note Patient Name: Adama Ram : [id number] Case Date: 05/31/2017 Surgeon: Surgeon(s) and Role: [...] TO PATHOLOGY (SURGICAL OR DERM) OR 28 [id number] Renal Mass Left kidney with partial ureter [...] radical nephrectomy for renal masses in his capitan grande band left kidney. No recent changes to health [...] and the abdominal wall fascia posteriorly using [id number] 0 vicryl stitches and then we closed [...] Operative Note Patient Name: Adama Ram : [id number] MR#: [id number] Case Date: 05/31/2017 Surgeon: Surgeon(s) and Role: [...] TO PATHOLOGY (SURGICAL OR DERM) OR 28 [id number] Renal Mass Left kidney with partial ureter [...] or in patients with acute kidney failure. http://PhoneFusion/DHnkdep http://PhoneFusion/DHMCnkf Blood specimen (specimen) 06/23/2017 12:21 PM EST 06/23/2017 12:32 PM EST Narrative Resulting Agency Comment Spec In Lab Gianna Tavarez MD CHEMISTRY ORDERABL ES [facility] [place] [address] * SCAN DOC: ECG (06/03/2017 12:00 AM EST) Narrative 06/03/2017 12:00 AM EST Ordered by an unspecified provider. Scanning Provider MEDIA MGR SCAN EXT O RDR/RSLT * (ABNORMAL) Differential, Automated (06/02/2017 1:36 AM EST) Pathologist [facility] Neutrophil % 80.4 % [facility] Neutrophil Absolute 5.14 1.70 - 6.10 x10(3)/[facility] LAB[facility]AT[facility] Lymph % 9.4 % [facility] Lymphocytes Abs 0.6(L) 0.9 - 3.2 x10(3)/[facility] LAB[facility]ORY Monocyte % 7.8 % [facility] Monocyte Abs 0.5 0.3 - 0.9 x10(3)/[facility] LABORATORY Eos % 1.9 % [facility] Eosinophils Abs 0.1 0.0 - 0.4 x10(3)/[facility] LAB[facility] Basophil % 0.2 % [facility] Baso Absolute 0.0 0.0 - 0.1 x10(3)/[facility] Immature Gran % 0.30 % [facility] [...] 0.00 - 0.04 x10(3)/[facility] Blood specimen (specimen) 06/02/2017 1:36 AM EST 06/02/2017 1:48 AM EST Narrative Resulting Agency Comment Spec In Lab Gianna Tavarez MD HEMATOLOGY ORDERAB LES [facility] [place] [address] * (ABNORMAL) Hemogram (06/02/2017 1:36 AM EST) Pathologist [facility] White Blood Cell 6.4 4.0 - 9.5 x10(3)/[facility] Red Blood Cell 3.17(L) 4.58 - 5.54 x10(6)/mc L [facility] Hemoglobin 9.4(L) 13.7 - 16.5 gm/dL [facility] Hematocrit 29.8(L) 40.5 - 48.5 % [facility] Mean Cell Volume 94.0(H) 82.9 - 93.1 fL [facility] Mean Cell Hemoglobin 29.7 27.5 - 32.1 pg [facility] Mean Cell Hemoglobin Concentration 31.5(L) 32.0 - 35.7 gm/dL [facility] Platelet 287 145 - 357 x10(3)/mc L [facility] RDW Standard Deviation 55.7(H) 36.0 - 45.0 [facility] RDW coefficient of variation 15.9(H) 11.4 - 13.8 % [facility] Mean Platelet Volume 9.1 7.6 - 12.9 [facility] NRBC% auto 0.0 % [facility] NRBC Absolute 0.000 0.000 - 0.000 x10(3)/mc L [facility] Blood specimen (specimen) 06/02/2017 1:36 AM EST 06/02/2017 1:48 AM EST Narrative Resulting Agency Comment Spec In Lab Gianna Tavarez MD HEMATOLOGY ORDERAB LES Performing Organization Address City/State/[place] Co de Phone Number [facility] [place] [address] * Phosphorus (06/02/2017 1:36 AM EST) Phosphorus 4.1 2.5 - 4.5 mg/dL [facility] Blood specimen (specimen) 06/02/2017 1:36 AM EST 06/02/2017 1:48 AM EST Narrative Resulting Agency Comment Spec In Lab Gianna Tavarez MD CHEMISTRY ORDERABL ES Performing Organization Address City/[facility]/ZIP Co de Phone Number [facility] [place] [address] * (ABNORMAL) Magnesium (06/02/2017 1:36 AM EST) Pathologist [facility] Magnesium 0.62(L) 0.69 - 1.07 mmol/L [facility] Blood specimen (specimen) 06/02/2017 1:36 AM EST 06/02/2017 1:48 AM EST Narrative Resulting Agency Comment Spec In Lab Gianna Tavarez MD CHEMISTRY ORDERABL ES Performing Organization Address [facility]/[place] Co de Phone Number [facility] [place] [address] * (ABNORMAL) Basic Metabolic Panel (non-fasting) (06/02/2017 1:36 AM EST) [facility] Glucose 117 65 - 199 mg/dL [facility] Comment:Diabetes: >=200 mg/d L plus symptoms Blood Urea Nitrogen 36(H) 10 - 20 mg/dL [facility] Creatinine 2.19(H) 0.80 - 1.50 mg/dL [facility] Sodium 135 135 - 145 mmol/L [facility] Comment:result rechecked-mo Potassium 5.0 3.5 - 5.0 mmol/L [facility] Comment: result rechecked-mo Please note: ??Patients with WBC >100,000 may have falsely elevated Potassium levels. ??For accurate Potassium quantification in these patients send serum separator tube (gold top) for subsequent determinations. ??Contact the Clinical Chemistry Laboratory if there are any questions. Chloride 98 98 - 107 mmol/L [facility] Comment:result rechecked-mo Carbon Dioxide 25 22 - 31 mmol/L [facility] Anion Gap 12 5 - 15 mmol/L [facility] Calcium 8.0(L) 8.5 - 10.5 mg/dL [facility] Est Glomerular Filtration Rate 31(L) >=60 [facility] Comment: The reported eGFR should be multiplied by 1.2 for patients. The MDRD is not an appropriate measure of renal function for patients with body mass extremes or in patients with acute kidney failure. http://PhoneFusion/DHnkdep http://PhoneFusion/DHMCnkf Blood specimen (specimen) 06/02/2017 1:36 AM EST 06/02/2017 1:48 AM EST Narrative Resulting Agency Comment Spec In Lab Gianna Tavarez MD CHEMISTRY ORDERABL ES [facility] [place] [address] * (ABNORMAL) Differential, Automated (06/01/2017 3:27 AM EST) Neutrophil % 80.7 % [facility] Neutrophil Absolute 3.79 1.70 - 6.10 x10(3)/mc L [facility] Lymph % 11.3 % [facility] Lymphocytes Abs 0.5(L) 0.9 - 3.2 x10(3)/mc L [facility] Monocyte % 7.0 % [facility] Monocyte Abs 0.3 0.3 - 0.9 x10(3)/mc L [facility] Eos % 0.6 % [facility] Eosinophils Abs 0.0 0.0 - 0.4 x10(3)/mc L [facility] Basophil % 0.2 % [facility] Baso Absolute 0.0 0.0 - 0.1 x10(3)/mc L [facility] Immature Gran % 0.20 % [facility] Comment: Immature granulocytes(IG's)percentage and absolute count will include metamyelocytes, myelocytes, and promyelocytes. Blood smears from CBCs yielding IG's will be scanned manually for concordance. If this scan disagrees with the automated IG or if promyelocytes are noted, a manual differential will be performed. Immature Gran Absolute 0.01 0.00 - 0.04 x10(3)/[facility] LAB[facility] Blood specimen (specimen) 06/01/2017 3:27 AM EST 06/01/2017 3:40 AM EST Narrative Resulting Agency Comment Spec In Lab Gianna Tavarez MD HEMATOLOGY ORDERAB LES [facility] [place] [address] * (ABNORMAL) Hemogram (06/01/2017 3:27 AM EST) White Blood Cell 4.7 4.0 - 9.5 x10(3)/[facility] Red Blood Cell 3.01(L) 4.58 - 5.54 x10(6)/[facility] Hemoglobin 8.7(L) 13.7 - 16.5 gm/dL [facility] Hematocrit 28.7(L) 40.5 - 48.5 % [facility] Mean Cell Volume 95.3(H) 82.9 - 93.1 [facility] LAB[facility] Mean Cell Hemoglobin 28.9 27.5 - 32.1 pg [facility] Mean Cell Hemoglobin Concentration 30.3(L) 32.0 - 35.7 gm/dL [facility] Platelet 237 145 - 357 x10(3)/[facility] RDW Standard Deviation 56.2(H) 36.0 - 45.0 [facility] RDW coefficient of variation 16.2(H) 11.4 - 13.8 % [facility] Mean Platelet Volume 9.1 7.6 - 12.9 [facility] NRBC% auto 0.0 % [facility] NRBC Absolute 0.000 0.000 - 0.000 x10(3)/[facility] Blood specimen (specimen) 06/01/2017 3:27 AM EST 06/01/2017 3:40 AM EST Narrative Resulting Agency Comment Spec In Lab Gianna Tavarez MD HEMATOLOGY ORDERAB LES Performing Organization Address [facility]/[place] Co de Phone Number [facility] [place] [address] * Phosphorus (06/01/2017 3:27 AM EST) Phosphorus 3.7 2.5 - 4.5 mg/dL [facility] Blood specimen (specimen) 06/01/2017 3:27 AM EST 06/01/2017 3:40 AM EST Narrative Resulting Agency Comment Spec In Lab Gianna Tavarez MD CHEMISTRY ORDERABL ES Performing Organization Address [facility] de Phone Number [facility] [place] [place] [address] * Magnesium (06/01/2017 3:27 AM EST) Magnesium 0.72 0.69 - 1.07 mmol/L [facility] Blood specimen (specimen) 06/01/2017 3:27 AM EST 06/01/2017 3:40 AM EST Narrative Resulting Agency Comment Spec In Lab Gianna Tavarez MD CHEMISTRY ORDERABL ES Performing Organization Address [facility] de Phone Number [facility] [place] [place] [address] * (ABNORMAL) Basic Metabolic Panel (non-fasting) (06/01/2017 3:27 AM EST) Glucose 104 65 - 199 mg/dL [facility] Comment:Diabetes: >=200 mg/d L plus symptoms Blood Urea Nitrogen 36(H) 10 - 20 mg/dL [facility] Creatinine 2.16(H) 0.80 - 1.50 mg/dL [facility] Sodium 142 135 - 145 mmol/L [facility] Potassium 5.4(H) 3.5 - 5.0 mmol/L [facility] Comment: Please note: ??Patients with WBC >100,000 may have falsely elevated Potassium levels. ??For accurate Potassium quantification in these patients send serum separator tube (gold top) for subsequent determinations. ??Contact the Clinical Chemistry Laboratory if there are any questions. Chloride 107 98 - 107 mmol/L [facility] Carbon Dioxide 24 22 - 31 mmol/L [facility] Anion Gap 11 5 - 15 mmol/L [facility] Calcium 7.6(L) 8.5 - 10.5 mg/dL [facility] Est Glomerular Filtration Rate 32(L) >=60 [facility] Comment: The reported eGFR should be multiplied by 1.2 for patients. The MDRD is not an appropriate measure of renal function for patients with body mass extremes or in patients with acute kidney failure. http://PhoneFusion/DHnkdep http://PhoneFusion/DHMCnkf Blood specimen (specimen) 06/01/2017 3:27 AM EST 06/01/2017 3:40 AM EST Narrative Resulting Agency Comment Spec In Lab Gianna Tavarez MD CHEMISTRY ORDERABL ES [facility] [place] [address] * (ABNORMAL) Differential, Automated (05/31/2017 3:17 PM EST) Neutrophil % 88.8 % [facility] Neutrophil Absolute 5.84 1.70 - 6.10 x10(3)/mc L [facility] Lymph % 7.3 % [facility] Lymphocytes Abs 0.5(L) 0.9 - 3.2 x10(3)/mc L [facility] Monocyte % 2.7 % [facility] Monocyte Abs 0.2(L) 0.3 - 0.9 x10(3)/mc L [facility] Eos % 0.5 % [facility] Eosinophils Abs 0.0 0.0 - 0.4 x10(3)/[facility] Basophil % 0.2 % [facility] Baso Absolute 0.0 0.0 - 0.1 x10(3)/[facility] Immature Gran % 0.50 % [facility] Comment: Immature granulocytes(IG's)percentage and absolute count will include metamyelocytes, myelocytes, and promyelocytes. Blood smears from CBCs yielding IG's will be scanned manually for concordance. If this scan disagrees with the automated IG or if promyelocytes are noted, a manual differential will be performed. Immature Gran Absolute 0.03 0.00 - 0.04 x10(3)/[facility] Blood specimen (specimen) 05/31/2017 3:17 PM EST 05/31/2017 3:26 PM EST Narrative Resulting Agency Comment Spec In Lab Gianna Tavarez MD HEMATOLOGY ORDERAB LES [facility] [place] [id number] * (ABNORMAL) Hemogram (05/31/2017 3:17 PM EST) White Blood Cell 6.6 4.0 - 9.5 x10(3)/[facility] Red Blood Cell 2.94(L) 4.58 - 5.54 x10(6)/[facility] Hemoglobin 8.6(L) 13.7 - 16.5 gm/dL [facility] Hematocrit 28.4(L) 40.5 - 48.5 % [facility] Mean Cell Volume 96.6(H) 82.9 - 93.1 fL [facility] Mean Cell Hemoglobin 29.3 27.5 - 32.1 pg [facility] Mean Cell Hemoglobin Concentration 30.3(L) 32.0 - 35.7 gm/dL [facility] Platelet 254 145 - 357 x10(3)/mc L [facility] RDW Standard Deviation 57.1(H) 36.0 - 45.0 fL [facility] RDW coefficient of variation 16.3(H) 11.4 - 13.8 % [facility] Mean Platelet Volume 9.1 7.6 - 12.9 fL [facility] NRBC% auto 0.0 % [facility] NRBC Absolute 0.000 0.000 - 0.000 x10(3)/mc L [facility] Blood specimen (specimen) 05/31/2017 3:17 PM EST 05/31/2017 3:26 PM EST Narrative Resulting Agency Comment Spec In Lab Gianna Tavarez MD HEMATOLOGY ORDERAB LES Performing Organization Address [facility]/[place] Co de Phone Number [facility] [place] [address] * Phosphorus (05/31/2017 3:17 PM EST) Phosphorus 3.4 2.5 - 4.5 mg/dL [facility] Blood specimen (specimen) 05/31/2017 3:17 PM EST 05/31/2017 3:26 PM EST Narrative Resulting Agency Comment Spec In Lab Gianna Tavarez MD CHEMISTRY ORDERABL ES Performing Organization Address [facility]/[place] Co ks Phone Number [facility] [place] [address] * (ABNORMAL) Magnesium (05/31/2017 3:17 PM EST) Magnesium 0.65(L) 0.69 - 1.07 mmol/L [facility] Blood specimen (specimen) 05/31/2017 3:17 PM EST 05/31/2017 3:26 PM EST Narrative Resulting Agency Comment Spec In Lab Gianna Tavarez MD CHEMISTRY ORDERABL ES Performing Organization Address [facility]/[place] Co de Phone Number [facility] [place] [address] * (ABNORMAL) Basic Metabolic Panel (non-fasting) (05/31/2017 3:17 PM EST) Glucose 117 65 - 199 mg/dL [facility] Comment:Diabetes: >=200 mg/d L plus symptoms Blood Urea Nitrogen 39(H) 10 - 20 mg/dL [facility] Creatinine 2.31(H) 0.80 - 1.50 mg/dL [facility] Sodium 148(H) 135 - 145 mmol/L [facility] Potassium 5.4(H) 3.5 - 5.0 mmol/L [facility] Comment: Please note: ??Patients with WBC >100,000 may have falsely elevated Potassium levels. ??For accurate Potassium quantification in these patients send serum separator tube (gold top) for subsequent determinations. ??Contact the Clinical Chemistry Laboratory if there are any questions. Chloride 112(H) 98 - 107 mmol/L [facility] Carbon Dioxide 22 22 - 31 mmol/L [facility] Anion Gap 14 5 - 15 mmol/L [facility] Calcium 8.0(L) 8.5 - 10.5 mg/dL [facility] Est Glomerular Filtration Rate 30(L) >=60 [facility] Comment: The reported eGFR should be multiplied by 1.2 for patients. The MDRD is not an appropriate measure of renal function for patients with body mass extremes or in patients with acute kidney failure. http://[employer].TATE'S LIST/DHnkdep http://[employer].TATE'S LIST/DHMCnkf Blood specimen (specimen) 05/31/2017 3:17 PM EST 05/31/2017 3:26 PM EST Narrative Resulting Agency Comment Spec In Lab Gianna Tavarez MD CHEMISTRY ORDERABL ES [facility] [place] [address] * Specimen to Pathology (surgical or derm) (05/31/2017 2:14 PM EST) AP Specimen 05/31/2017 2:14 PM EST 05/31/2017 2:14 PM EST Narrative [facility] - 05/31/2017 2:14 PM EST Specimen requisition ordered. ??Separate Pathology report to follow Gianna Tavarez MD PATHOLOGY/CYTOLOGY ORDERABLES Performing Organization Address [facility] Co de Phone Number [facility] [place] [address] * Surgical Pathology Report (05/31/2017 2:12 PM EST) Final Diagnosis [id number] ? Location: 2WST; 0210; A The signing [...] A7, A14 Normal Block(s): ?? A15 CAP [facility] 2017 Feb WHO Update Release Electronically signed by: ??Juan Carlos Jacob MD Verified: ??06/08/2017 ?Pathologist Performed at: ??-[facility] Dept. of Pathology, [facility], [place], [place] DISCUSSION Some morphologic features including oncocytic [...] (8-9) lesion I to renal pelvis; (10) software sales representative lesion I; (11) lesion II to surface; (12) lesion II to pelvis, including lesion I; (13) lesion II to renal parenchyma; (14) software sales representative lesion II; (15-16) software sales representative renal parenchyma. (R16) ??crj 06/08/2017 4:44 PM EST [facility] SPECIMEN FROM KIDNEY / Unknown 05/31/2017 2:12 PM EST 05/31/2017 2:12 PM EST Gianna Tavarez MD PATHOLOGY/CYTOLOGY ORDERABLES [facility] [place] [address] * Molecular Genetics Report (05/31/2017 1:20 PM EST) Molecular Report [id number] ? Location: 2WST; 0210; A The signing pathologist has (i) examined the relevant preparation(s) for the specimen(s) and (ii) rendered or confirmed the diagnosis(es). . ?Molecular Genetics RESULTS Please refer to Pathology Report [id number] for final pathology diagnosis. TEST: ?? 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 [id number]: A region of tumor, identified microscopically [...] situ hybridization. BJU Int. 2014 Jun;114(6):881-90. [PMID: [id number]] Nena LD, Kaitlynn M, Li MM, Ace ML, Shreya DJ; Working Group of the [employer] ([employer]) Laboratory Automation Engineer Committee. [employer] technical standards and guidelines: microarray analysis for chromosome abnormalities in neoplastic disorders. Cecilia Med. 2013 Dec;15(6):484-94. [PMID: [id number]]. METHODS: ?? DNA was isolated from formalin-fixed, [...] its performance characteristics determined by ? the [facility] Molecular Pathology Laboratory. It has not been [...] ? testing. Reviewed by: Danny Cohen, PhD Door Attendant, Molecular Pathology _ Electronically signed by: ??Nidia JONES, Juan Carlos Grubbs Verified: ??06/30/2017 ?Pathologist Performed at: ??-[facility] Dept. of Pathology, [facility] LABORATORY 05/31/2017 1:20 PM EST Gianna Tavarez MD PATHOLOGY/CYTOLOGY ORDERABLES [facility] [place] [address] * (ABNORMAL) BLOOD GAS 2 ARTERIAL (05/31/2017 1:20 PM EST) pH, Arterial 7.35(L) 7.35 - 7.45 [facility] PCO2, Arterial 41 35 - 45 mmHg [facility] PO2, Arterial 150(H) 85 - 104 mmHg [facility] Bicarbonate, Arterial 22.1 20.0 - 26.0 mmol/L [facility] Base Excess, Arterial -3.4(L) -3.0 - 3.0 mmol/L [facility] Hgb Blood Gas 9.1(L) 13.7 - 16.5 gm/dL [facility] Oxyhemoglobin, Arterial 98.1(H) 94.0 - 97.0 % [facility] Carboxyhemoglob in, Arterial 0.2 % [facility] Comment: Nonsmokers: 0.5-1.5% COHB Smokers: Variable, but usually less than 10% Toxic: 20-30% COHB Lethal: Greater than 60% COHB Methemoglobin, Arterial 0.3 <=1.5 % [facility] Na Whole Blood 139 135 - 145 mmol/L [facility] K Whole Blood 5.4(H) 3.5 - 5.0 mmol/L [facility] Comment: Please note: Patients with WBC >100,000 may have falsely elevated Potassium levels. Contact the Clinical Chemistry Laboratory if there are any questions. ICa Whole Blood 1.06(L) 1.15 - 1.33 mmol/L [facility] Comment: Note: ??Total bilirubin higher than 20 mg/dL may lead to falsely low ionized calcium. CL Whole Blood 112(H) 98 - 107 mmol/L [facility] Gluc Whole Bld 110 65 - 199 mg/dL [facility] Comment:Diabetes: >=200 mg/d L plus symptoms. Lactate WB 1.2 0.5 - 2.2 mmol/L [facility] Blood specimen (specimen) 05/31/2017 1:20 PM EST 05/31/2017 1:20 PM EST Gianna Tavarez MD POINT OF CARE TEST ORDERABLES Performing Organization Address City/State/[place] Co de Phone Number [facility] [place] [address] * (ABNORMAL) BLOOD GAS 2 ARTERIAL (05/31/2017 11:13 AM EST) pH, Arterial 7.39 7.35 - 7.45 [facility] PCO2, Arterial 38 35 - 45 mmHg [facility] PO2, Arterial 337(H) 85 - 104 mmHg [facility] Bicarbonate, Arterial 22.0 20.0 - 26.0 mmol/L [facility] Base Excess, Arterial -3.0 -3.0 - 3.0 mmol/L [facility] Hgb Blood Gas 9.8(L) 13.7 - 16.5 gm/dL [facility] Oxyhemoglobin, Arterial 98.7(H) 94.0 - 97.0 % [facility] Carboxyhemoglob in, Arterial 0.3 % [facility] Comment: Nonsmokers: 0.5-1.5% COHB Smokers: Variable, but usually less than 10% Toxic: 20-30% COHB Lethal: Greater than 60% COHB Methemoglobin, Arterial 0.3 <=1.5 % [facility] Na Whole Blood 140 135 - 145 mmol/L [facility] K Whole Blood 4.7 3.5 - 5.0 mmol/L [facility] [...] Whole Blood 111(H) 98 - 107 mmol/L [facility] Gluc Whole Bld 109 65 - 199 mg/dL [facility] Comment:Diabetes: >=200 mg/d L plus symptoms. Lactate WB 1.1 0.5 - 2.2 mmol/L [facility] Blood specimen (specimen) 05/31/2017 11:13 AM EST 05/31/2017 11:13 AM EST Gianna Tavarez MD POINT OF CARE TEST ORDERABLES [facility] [place] [id number] * Prepare RBC (05/31/2017 10:25 AM EST) Dispensed? Yes [facility] Blood specimen (specimen) 05/31/2017 10:25 AM EST 05/31/2017 10:20 AM EST Gianna Tavarez MD BLOOD BANK PRODUCT ORDERABLES [facility] [place] [address] * POCT HGB (05/31/2017 10:00 AM EST) POC Hemoglobin 7.8 g/dL Blood specimen (specimen) 05/31/2017 10:00 AM EST Ilda Montero MD POINT OF CARE TEST O RDERABLES * Prothrombin Time (05/31/2017 9:06 AM EST) Prothrombin Time 13.9 11.8 - 14.0 sec [facility] [...] Comment Spec In Lab Cally Lopez Olson [facility] HEMATOLOGY ORDERABLE S Performing Organization Address City/State/[place] Co de Phone Number [facility] [place] [address] documented in this encounter Visit Diagnoses Not [...] 5% 100 mL (COMPLETED) 2 g, Intravenous, TRUCKING CONTRACTOR TO O.R., 1 dose, On Wed05/31/17 at [...] injection 5,000 Units (COMPLETED) 5,000 Units, Subcutaneous, TRUCKING CONTRACTOR TO O.R., 1 dose, On Wed05/31/17 at [...] Routine documented in this encounter Care Teams Manager Operations Research Relationship Specialty Start Date End Date Carroll Fuentes DO [address] [place] [address] PCP - General 09/23/11 10/20/22 documented as of this encounter
--- OUTSIDE RECORDS SUMMARY | 2024-05-23 13:32 | XMS_ITS | Encounter Summary ---
Author Organization [place] [address] Care Team Providers Care Appointment Setter Name Role Phone AlfredoCarroll allison Primary Care Provider [phone] Encounter Details Date Type Department Care Team (Late st Contact Info) Description 07/01/2017 Telephone [place] [phone] Misael Segundo, RN Social History Tobacco Use [...] questions or concerns. Misael Segundo RN-BSN Post Buttoner [facility] documented in this encounter Plan of Treatment Not on file documented as of this encounter Visit Diagnoses Diagnosis S/P kidney transplant Kidney replaced by transplant documented in this encounter Care Teams Appointment Setter Relationship Specialty Start Date End Date Carroll Fuentes DO [address] [place] [address] PCP - General 09/23/11 10/20/22 documented as of this encounter
--- OUTSIDE RECORDS SUMMARY | 2024-05-23 13:32 | XMS_ITS | Encounter Summary ---
Author Organization [facility] Address [facility] [place] [address] Care Team Providers Care Scarrer Name Role Phone AlfredoCarroll allison Primary Care Provider [phone] Reason for Visit * Auth/Cert Specialty Diagnoses / Procedures Referred By Shashi ko Referred To Contact Diagnoses Renal mass renal mass UNK Procedures PRO LAP, RADICAL NEPHRECTOMY @LAPAROSCOPY, RADICAL NEPHRECTOMY (WRVU 25.06) Referral ID Status Reason Start Date Expiration Date Visits Re quested Visits Authorized [id number] 1 1 Encounter Details Date Type Department Care Team (Latest Contact Info) Description 05/31/2017 8:52 AM [facility] - 06/02/2017 1:57 PM [facility] Hospital Encounter [address] [place] [id number] Gianna Tavarez MD [facility] [place] [address] Long-term (current) use of anticoagulants; Renal mass [...] Adama Ram Patient Age: 56 y.o. Language: Anguillan Race: White Ethnicity: Not nor Admit date: [...] GFR 15-29 ml/min ??? 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 H/O [...] found to havenew renal masses in his [place] left kidney. He denies any flank pain or hematuria. He has lost ~ 20lbs over the last 2 months (lack of appetite). He denies any family hx of RCC. Renal function has been stable (GFR b/w 23-31 recently). Hospital Course: Patient was admitted electively to [facility] via the same day surgery program and [...] by Dr. Fuentes. You have refills at [facility]. 30 mg Refills: 0 Continued medications [...] questions is before 5 PM weekdays and [phone] after 5 PM and weekends, and ask for air pollution specialist Urologist. Coumadin and Lovenox: Please continue to take Lovenox 30 mg daily as prescribed by Dr. Fuentes. Please restart your regular dose of Coumadin on Wednesday, 06/07. Dr. Fuentes's office would like for you to have your INR checked on Wednesday, 06/08, at [facility]. They will advise you further on Lovenox andCoumadin dosing. Your [facility] in [facility] says that you have a refill [...] 12:20 PM LAB, THREE L Lab 3L [facility] [phone] 06/23/2017 1:20 PM Gianna Tavarez MD Urology at [place] [phone] 06/28/2017 8:40 AM LAB, [address] [facility] [phone] 06/28/2017 9:40 AM Anup Hawkins MD Transplant at [place] [phone] 07/22/2017 3:00 PM Chanel Smith MD Dermatology at [facility] [phone] 11/17/2017 9:20 AM LAB, THREE L Lab 3L [facility] [phone] 11/17/2017 10:40 AM Anup Hawkins MD Transplant at [place] [phone] Future Orders Complete By Expires Basic Metabolic Panel (non-fasting) [LAB15 Custom] 06/16/2017 (Approximate) 12/16/2017 Process Instructions: INCLUDES: Calcium, BUN, Creat, GFR, Glucose, Lytes Scheduling Instructions: Comments: Questions: Primary Care Provider: Carroll Fuentes DO [phone] Follow-up Recommendations for Providers: Please see discharge [...] was managed by the Urology Team at [facility]. If you have any questions or concerns, please feel free to contact us. Provider Contact Information: Urology Clinic: [facility] (after business hours): Associated attestation - Gianna [...] questions is before 5 PM weekdays and [phone] after 5 PM and weekends, and ask for air pollution specialist Urologist. Coumadin and Lovenox: Please continue to take Lovenox 30 mg daily as prescribed by Dr. Fuentes. Please restart your regular dose of Coumadin on Wednesday, 06/07. Dr. Fuentes's office would like for you to have your INR checked on Wednesday, 06/08, at [facility]. They will advise you further on Lovenox andCoumadin dosing. Your [facility] in [place] [facility] says that you have a refill [...] by Dr. Fuentes. You have refills at [facility] in [facility]. 06/02/2017 06/28/2017 warfarin (COUMADIN) 5 mg [...] he gets his daily Lovenox injections at [facility], in infusion or the lab, usually about 2pm. This RN unable to reach anyone in the infusion or lab departments, messages left. PANCHITO Aquino updated on situation. RN Orthopedic Cast Specialist Anastasia Frey attempting to reach someone directly to determine Lovenox injections can be given consistently at [facility] as patient describes, including holiday and weekend. 1330: Addendum. Nursing unable to verify with [facility] that anyone there gives patient his daily Lovenox injections. PANCHITO Smith made aware and accompanied this RN and RN Orthopedic Cast Specialist to patient's room to discuss further. [...] was instructed to contact Regional Anesthesia Team ([id number]) for any unresolved sensory or motor deficits. ?? Thank you for the opportunity to have participated in the care of this patient. JESENIA RADFORD MD Regional Team pager [phone] * Devi Smith PA - 06/01/2017 8:53 AM EST Urology IP Progress Note ID: Adama Ram is a 56 y.o. 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 Doing well post-op. Goals [...] radical nephrectomy for renal masses in his [place] left kidney. No recent changes to health [...] radical nephrectomy for renal masses in his [place] left kidney. Patient appears fit forsurgery. The [...] organ taken out. Procedure(s): @LAPAROSCOPY, [facility] ??Anesthesia: General ??Findings: 1. One [...] his brother Lucas Ram who resides in [place]; pt's 86 year old mother Ilda listed as second POA. Current Coping/Education/Information Needs: Seems to be coping well with no complaints at time of interview. Current Functional Ability: SBA Functional Status Prior to Admission: Independent. Home Environment: Pt lives in a second floor apartment building located in [facility]. Pt's mother Ilda lives two doors [...] Able to manage Rx co-pays. Preferred Pharmacy: [facility] in [place], [place]. Other: na Primary Care Provider: Carroll Fuentes DO [phone] Patient/Caregiver Goals of Treatment: Effective pain control; [...] of care planning. Padmini Ruiz RN, BSN Retail Office Associate-[address] [place] Pager # [phone] [email or web address] * Plan of Care - Leslie Turner [...] Danisha Haines - 05/31/2017 3:00 PM EST [facility] Operative Note Patient Name: Adama Ram : [id number] Case Date: 05/31/2017 Surgeon: Surgeon(s) and Role: [...] TO PATHOLOGY (SURGICAL OR DERM) OR 28 [id number] Renal Mass Left kidney with partial ureter [...] radical nephrectomy for renal masses in his [place] left kidney. No recent changes to health [...] and the abdominal wall fascia posteriorly using [id number] 0 vicryl stitches and then we closed [...] Operative Note Patient Name: Adama Ram : [id number] MR#: [id number] Case Date: 05/31/2017 Surgeon: Surgeon(s) and Role: [...] TO PATHOLOGY (SURGICAL OR DERM) OR 28 [id number] Renal Mass Left kidney with partial ureter [...] EST) Glucose 84 65 - 199 mg/dL [facility] Comment:Diabetes: >=200 mg/d L plus symptoms Blood Urea Nitrogen 55(H) 10 - 20 mg/dL [facility] Creatinine 2.55(H) 0.80 - 1.50 mg/dL [facility] Sodium 146(H) 135 - 145 mmol/L [facility] Potassium 5.7(H) 3.5 - 5.0 mmol/L [facility] Comment: Please note: ??Patients with WBC >100,000 may have falsely elevated Potassium levels. ??For accurate Potassium quantification in these patients send serum separator tube (gold top) for subsequent determinations. ??Contact the Clinical Chemistry Laboratory if there are any questions. Chloride 114(H) 98 - 107 mmol/L [facility] Carbon Dioxide 18(L) 22 - 31 mmol/L [facility] Anion Gap 14 5 - 15 mmol/L [facility] Calcium 8.5 8.5 - 10.5 mg/dL [facility] Est Glomerular Filtration Rate 26(L) >=60 [facility] Comment: The reported eGFR should be multiplied by 1.2 for patients. The MDRD is not an appropriate measure of renal function for patients with body mass extremes or in patients with acute kidney failure. http://Assurz/DHnkdep http://Assurz/DHMCnkf Blood specimen (specimen) 06/23/2017 12:21 PM EST 06/23/2017 12:32 PM EST Narrative Resulting Agency Comment Spec In Lab Gianna Tavarez MD CHEMISTRY ORDERABL ES [facility] [place] [address] * SCAN DOC: ECG (06/03/2017 12:00 AM EST) Narrative 06/03/2017 12:00 AM EST Ordered by an unspecified provider. Scanning Provider MEDIA MGR SCAN EXT O RDR/RSLT * (ABNORMAL) Differential, Automated (06/02/2017 1:36 AM EST) Neutrophil % 80.4 % [facility] Neutrophil Absolute 5.14 1.70 - 6.10 x10(3)/[facility] Lymph % 9.4 % [facility] Lymphocytes Abs 0.6(L) 0.9 - 3.2 x10(3)/[facility] Monocyte % 7.8 % [facility] Monocyte Abs 0.5 0.3 - 0.9 x10(3)/[facility] Eos % 1.9 % [facility] Eosinophils Abs 0.1 0.0 - 0.4 x10(3)/[facility] Basophil % 0.2 % [facility] Baso Absolute 0.0 0.0 - 0.1 x10(3)/[facility] Immature Gran % 0.30 % [facility] Comment: Immature granulocytes(IG's)percentage and absolute count will include metamyelocytes, myelocytes, and promyelocytes. Blood smears from CBCs yielding IG's will be scanned manually for concordance. If this scan disagrees with the automated IG or if promyelocytes are noted, a manual differential will be performed. Immature Gran Absolute 0.02 0.00 - 0.04 x10(3)/[facility] Blood specimen (specimen) 06/02/2017 1:36 AM EST 06/02/2017 1:48 AM EST Narrative Resulting Agency Comment Spec In Lab Gianna Tavarez MD HEMATOLOGY ORDERAB LES [facility] [place] [address] * (ABNORMAL) Hemogram (06/02/2017 1:36 AM EST) Pathologist [facility] White Blood Cell 6.4 4.0 - 9.5 x10(3)/[facility] Red Blood Cell 3.17(L) 4.58 - 5.54 x10(6)/mc L [facility] Hemoglobin 9.4(L) 13.7 - 16.5 gm/dL [facility] Hematocrit 29.8(L) 40.5 - 48.5 % [facility] Mean Cell Volume 94.0(H) 82.9 - 93.1 fL [facility] Mean Cell Hemoglobin 29.7 27.5 - 32.1 pg [facility] Mean Cell Hemoglobin Concentration 31.5(L) 32.0 - 35.7 gm/dL [facility] Platelet 287 145 - 357 x10(3)/mc L [facility] RDW Standard Deviation 55.7(H) 36.0 - 45.0 fL [facility] RDW coefficient of variation 15.9(H) 11.4 - 13.8 % [facility] Mean Platelet Volume 9.1 7.6 - 12.9 [facility] NRBC% auto 0.0 % [facility] NRBC Absolute 0.000 0.000 - 0.000 x10(3)/mc L [facility] Blood specimen (specimen) 06/02/2017 1:36 AM EST 06/02/2017 1:48 AM EST Narrative Resulting Agency Comment Spec In Lab Gianna Tavarez MD HEMATOLOGY ORDERAB LES Performing Organization Address City/State/[facility] Co de Phone Number [facility] [place] [address] * Phosphorus (06/02/2017 1:36 AM EST) Phosphorus 4.1 2.5 - 4.5 mg/dL [facility] Blood specimen (specimen) 06/02/2017 1:36 AM EST 06/02/2017 1:48 AM EST Narrative Resulting Agency Comment Spec In Lab Gianna Tavarez MD CHEMISTRY ORDERABL ES Performing Organization Address City/[facility]/ZIP Co de Phone Number [facility] [place] [address] * (ABNORMAL) Magnesium (06/02/2017 1:36 AM EST) [facility] Magnesium 0.62(L) 0.69 - 1.07 mmol/L [facility] Blood specimen (specimen) 06/02/2017 1:36 AM EST 06/02/2017 1:48 AM EST Narrative Resulting Agency Comment Spec In Lab Gianna Tavarez MD CHEMISTRY ORDERABL ES Performing Organization Address [facility]/ZIP Co de Phone Number [facility] [place] [address] * (ABNORMAL) Basic Metabolic Panel (non-fasting) (06/02/2017 1:36 AM EST) [facility] Glucose 117 65 - 199 mg/dL [facility] Comment:Diabetes: >=200 mg/d L plus symptoms Blood Urea Nitrogen 36(H) 10 - 20 mg/dL [facility] Creatinine 2.19(H) 0.80 - 1.50 mg/dL [facility] Sodium 135 135 - 145 mmol/L [facility] Comment:result rechecked-mo Potassium 5.0 3.5 - 5.0 mmol/L [facility] Comment: result rechecked-mo Please note: ??Patients with WBC >100,000 may have falsely elevated Potassium levels. ??For accurate Potassium quantification in these patients send serum separator tube (gold top) for subsequent determinations. ??Contact the Clinical Chemistry Laboratory if there are any questions. Chloride 98 98 - 107 mmol/L [facility] Comment:result rechecked-mo Carbon Dioxide 25 22 - 31 mmol/L [facility] Anion Gap 12 5 - 15 mmol/L [facility] Calcium 8.0(L) 8.5 - 10.5 mg/dL [facility] Est Glomerular Filtration Rate 31(L) >=60 [facility] Comment: The reported eGFR should be multiplied by 1.2 for patients. The MDRD is not an appropriate measure of renal function for patients with body mass extremes or in patients with acute kidney failure. http://Assurz/DHnkdep http://Assurz/DHMCnkf Blood specimen (specimen) 06/02/2017 1:36 AM EST 06/02/2017 1:48 AM EST Narrative Resulting Agency Comment Spec In Lab Gianna Tavarez MD CHEMISTRY ORDERABL ES [facility] [place] [address] * (ABNORMAL) Differential, Automated (06/01/2017 3:27 AM EST) Neutrophil % 80.7 % [facility] Neutrophil Absolute 3.79 1.70 - 6.10 x10(3)/mc L [facility] Lymph % 11.3 % [facility] Lymphocytes Abs 0.5(L) 0.9 - 3.2 x10(3)/mc L [facility] Monocyte % 7.0 % [facility] Monocyte Abs 0.3 0.3 - 0.9 x10(3)/mc L [facility] Eos % 0.6 % [facility] Eosinophils Abs 0.0 0.0 - 0.4 x10(3)/mc L [facility] Basophil % 0.2 % [facility] Baso Absolute [...] Absolute 0.01 0.00 - 0.04 x10(3)/ L [facility] Blood specimen (specimen) 06/01/2017 3:27 AM EST 06/01/2017 3:40 AM EST Narrative Resulting Agency Comment Spec In Lab Gianna Tavarez MD HEMATOLOGY ORDERAB LES [facility] [place] [address] * (ABNORMAL) Hemogram (06/01/2017 3:27 AM EST) White Blood Cell 4.7 4.0 - 9.5 x10(3)/[facility] Red Blood Cell 3.01(L) 4.58 - 5.54 x10(6)/[facility] Hemoglobin 8.7(L) 13.7 - 16.5 gm/dL [facility] Hematocrit 28.7(L) 40.5 - 48.5 % [facility] Mean Cell Volume 95.3(H) 82.9 - 93.1 [facility] Mean Cell Hemoglobin 28.9 27.5 - 32.1 pg [facility] Mean Cell Hemoglobin Concentration 30.3(L) 32.0 - 35.7 gm/dL [facility] Platelet 237 145 - 357 x10(3)/[facility] RDW Standard Deviation 56.2(H) 36.0 - 45.0 [facility] RDW coefficient of variation 16.2(H) 11.4 - 13.8 % [facility] Mean Platelet Volume 9.1 7.6 - 12.9 [facility] NRBC% auto 0.0 % [facility] NRBC Absolute 0.000 0.000 - 0.000 x10(3)/[facility] Blood specimen (specimen) 06/01/2017 3:27 AM EST 06/01/2017 3:40 AM EST Narrative Resulting Agency Comment Spec In Lab Gianna Tavarez MD HEMATOLOGY ORDERAB LES Performing Organization Address [facility] Co de Phone Number [facility] [place] [address] * Phosphorus (06/01/2017 3:27 AM EST) Phosphorus 3.7 2.5 - 4.5 mg/dL [facility] Blood specimen (specimen) 06/01/2017 3:27 AM EST 06/01/2017 3:40 AM EST Narrative Resulting Agency Comment Spec In Lab Gianna Tavarez MD CHEMISTRY ORDERABL ES Performing Organization Address [facility] Phone Number [facility] [place] [address] * Magnesium (06/01/2017 3:27 AM EST) Magnesium 0.72 0.69 - 1.07 mmol/L [facility] Blood specimen (specimen) 06/01/2017 3:27 AM EST 06/01/2017 3:40 AM EST Narrative Resulting Agency Comment Spec In Lab Gianna Tavarez MD CHEMISTRY ORDERABL ES Performing Organization Address [facility] de Phone Number [facility] [place] [address] * (ABNORMAL) Basic Metabolic Panel (non-fasting) (06/01/2017 3:27 AM EST) Glucose 104 65 - 199 mg/dL [facility] Comment:Diabetes: >=200 mg/d L plus symptoms Blood Urea Nitrogen 36(H) 10 - 20 mg/dL [facility] Creatinine 2.16(H) 0.80 - 1.50 mg/dL [facility] [...] LABORATORY Est Glomerular Filtration Rate 32(L) >=60 [facility] Comment: The reported eGFR should be multiplied by 1.2 for patients. The MDRD is not an appropriate measure of renal function for patients with body mass extremes or in patients with acute kidney failure. http://Assurz/DHnkdep http://Assurz/DHMCnkf Blood specimen (specimen) 06/01/2017 3:27 AM EST 06/01/2017 3:40 AM EST Narrative Resulting Agency Comment Spec In Lab Gianna Tavarez MD CHEMISTRY ORDERABL ES [facility] [place] [address] * (ABNORMAL) Differential, Automated (05/31/2017 3:17 PM EST) Neutrophil % 88.8 % [facility] Neutrophil Absolute 5.84 1.70 - 6.10 x10(3)/mc L [facility] Lymph % 7.3 % [facility] Lymphocytes Abs 0.5(L) 0.9 - 3.2 x10(3)/mc L [facility] Monocyte % 2.7 % [facility] Monocyte Abs 0.2(L) 0.3 - 0.9 x10(3)/mc L [facility] Eos % 0.5 % [facility] Eosinophils Abs 0.0 0.0 - 0.4 x10(3)/[facility] Basophil % 0.2 % [facility] Baso Absolute 0.0 0.0 - 0.1 x10(3)/[facility] Immature Gran % 0.50 % [facility] Comment: Immature granulocytes(IG's)percentage and absolute count will include metamyelocytes, myelocytes, and promyelocytes. Blood smears from CBCs yielding IG's will be scanned manually for concordance. If this scan disagrees with the automated IG or if promyelocytes are noted, a manual differential will be performed. Immature Gran Absolute 0.03 0.00 - 0.04 x10(3)/[facility] Blood specimen (specimen) 05/31/2017 3:17 PM EST 05/31/2017 3:26 PM EST Narrative Resulting Agency Comment Spec In Lab Gianna Tavarez MD HEMATOLOGY ORDERAB LES [facility] [place] [address] * (ABNORMAL) Hemogram (05/31/2017 3:17 PM EST) White Blood Cell 6.6 4.0 - 9.5 x10(3)/[facility] Red Blood Cell 2.94(L) 4.58 - 5.54 x10(6)/[facility] Hemoglobin 8.6(L) 13.7 - 16.5 gm/dL [facility] Hematocrit 28.4(L) 40.5 - 48.5 % [facility] Mean Cell Volume 96.6(H) 82.9 - 93.1 fL [facility] Mean Cell Hemoglobin 29.3 27.5 - 32.1 pg [facility] Mean Cell Hemoglobin Concentration 30.3(L) 32.0 - 35.7 gm/dL [facility] Platelet 254 145 - 357 x10(3)/mc L [facility] RDW Standard Deviation 57.1(H) 36.0 - 45.0 fL [facility] RDW coefficient of variation 16.3(H) 11.4 - 13.8 % [facility] Mean Platelet Volume 9.1 7.6 - 12.9 fL [facility] NRBC% auto 0.0 % [facility] NRBC Absolute 0.000 0.000 - 0.000 x10(3)/mc L [facility] Blood specimen (specimen) 05/31/2017 3:17 PM EST 05/31/2017 3:26 PM EST Narrative Resulting Agency Comment Spec In Lab Gianna Tavarez MD HEMATOLOGY ORDERAB LES Performing Organization Address [facility] de Phone Number [facility] [place] [address] * Phosphorus (05/31/2017 3:17 PM EST) Phosphorus 3.4 2.5 - 4.5 mg/dL [facility] Blood specimen (specimen) 05/31/2017 3:17 PM EST 05/31/2017 3:26 PM EST Narrative Resulting Agency Comment Spec In Lab Gianna Tavarez MD CHEMISTRY ORDERABL ES Performing Organization Address [facility] de Phone Number [facility] [place] [address] * (ABNORMAL) Magnesium (05/31/2017 3:17 PM EST) Magnesium 0.65(L) 0.69 - 1.07 mmol/L [facility] Blood specimen (specimen) 05/31/2017 3:17 PM EST 05/31/2017 3:26 PM EST Narrative Resulting Agency Comment Spec In Lab Gianna Tavarez MD CHEMISTRY ORDERABL ES Performing Organization Address [facility] Co de Phone Number [facility] [place] [address] * (ABNORMAL) Basic Metabolic Panel (non-fasting) (05/31/2017 3:17 PM EST) Glucose 117 65 - 199 mg/dL [facility] Comment:Diabetes: >=200 mg/d L plus symptoms Blood Urea Nitrogen 39(H) 10 - 20 mg/dL [facility] Creatinine 2.31(H) 0.80 - 1.50 mg/dL [facility] [...] LABORATORY Est Glomerular Filtration Rate 30(L) >=60 [facility] Comment: The reported eGFR should be multiplied by 1.2 for patients. The MDRD is not an appropriate measure of renal function for patients with body mass extremes or in patients with acute kidney failure. http://RegeneMed.Pictorious/DHnkdep http://Regene[employer].Pictorious/DHMCnkf Blood specimen (specimen) 05/31/2017 3:17 PM EST 05/31/2017 3:26 PM EST Narrative Resulting Agency Comment Spec In Lab Gianna Tavarez MD CHEMISTRY ORDERABL ES [facility] [place] [address] * Specimen to Pathology (surgical or derm) (05/31/2017 2:14 PM EST) AP Specimen 05/31/2017 2:14 PM EST 05/31/2017 2:14 PM EST Narrative [facility] - 05/31/2017 2:14 PM EST Specimen requisition ordered. ??Separate Pathology report to follow Gianna Tavarez MD PATHOLOGY/CYTOLOGY ORDERABLES Performing Organization Address [facility] Co de Phone Number [facility] [place] [address] * Surgical Pathology Report (05/31/2017 2:12 PM EST) Final Diagnosis [id number] ? Location: 2WST; 0210; A The signing [...] A7, A14 Normal Block(s): ?? A15 CAP [facility] 2017 Feb WHO Update Release Electronically signed by: ??Juan Carlos Jacob MD Verified: ??06/08/2017 ?Pathologist Performed at: ??-[facility] Dept. of Pathology, [place], [place] DISCUSSION Some morphologic features including oncocytic [...] (8-9) lesion I to renal pelvis; (10) sales representative facility services lesion I; (11) lesion II to surface; (12) lesion II to pelvis, including lesion I; (13) lesion II to renal parenchyma; (14) sales representative facility services lesion II; (15-16) sales representative facility services renal parenchyma. (R16) ??crj 06/08/2017 4:44 PM EST [facility] SPECIMEN FROM KIDNEY / Unknown 05/31/2017 2:12 PM EST 05/31/2017 2:12 PM EST Gianna Tavarez MD PATHOLOGY/CYTOLOGY ORDERABLES [facility] [place] [address] * Molecular Genetics Report (05/31/2017 1:20 PM EST) Molecular Report [id number] ? Location: 2WST; 0210; A The signing pathologist has (i) examined the relevant preparation(s) for the specimen(s) and (ii) rendered or confirmed the diagnosis(es). . ?Molecular Genetics RESULTS Please refer to Pathology Report [id number] for final pathology diagnosis. TEST: ?? 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 [id number] A7: A region of tumor, identified microscopically [...] situ hybridization. BJU Int. 2014 Jun;114(6):881-90. [PMID: [id number]] Nena LD, Kaitlynn M, Li MM, Ace ML, Shreya DJ; Working Group of the [employer] ([employer]) Laboratory Associate Medical Director Committee. [employer] technical standards and guidelines: microarray analysis for chromosome abnormalities in neoplastic disorders. Cecilia Med. 2013 Dec;15(6):484-94. [PMID: [id number]]. METHODS: ?? DNA was isolated from formalin-fixed, [...] its performance characteristics determined by ? the [facility] Molecular Pathology Laboratory. It has not been [...] ? testing. Reviewed by: Danny Cohen, PhD Calcine Furnace Loader, Molecular Pathology _ Electronically signed by: ??Nidia JONES, Juan Carlos Grubbs Verified: ??06/30/2017 ?Pathologist Performed at: ??-[facility] Dept. of Pathology, [facility] 05/31/2017 1:20 PM EST Gianna Tavarez MD PATHOLOGY/CYTOLOGY ORDERABLES [facility] [place] [address] * (ABNORMAL) BLOOD GAS 2 ARTERIAL (05/31/2017 1:20 PM EST) pH, Arterial 7.35(L) 7.35 - 7.45 [facility] PCO2, Arterial 41 35 - 45 mmHg [facility] PO2, Arterial 150(H) 85 - 104 mmHg [facility] Bicarbonate, Arterial 22.1 20.0 - 26.0 mmol/L [facility] Base Excess, Arterial -3.4(L) -3.0 - 3.0 mmol/L [facility] Hgb Blood Gas 9.1(L) 13.7 - 16.5 gm/dL [facility] Oxyhemoglobin, Arterial 98.1(H) 94.0 - 97.0 % [facility] Carboxyhemoglob in, Arterial 0.2 % [facility] Comment: Nonsmokers: 0.5-1.5% COHB Smokers: Variable, but usually less than 10% Toxic: 20-30% COHB Lethal: Greater than 60% COHB Methemoglobin, Arterial 0.3 <=1.5 % [facility] Na Whole Blood 139 135 - 145 mmol/L [facility] Gluc Whole Bld 110 65 - 199 mg/dL [facility] Comment:Diabetes: >=200 mg/d L plus symptoms. Lactate WB 1.2 0.5 - 2.2 mmol/L [facility] Blood specimen (specimen) 05/31/2017 1:20 PM EST 05/31/2017 1:20 PM EST Gianna Tavarez MD POINT OF CARE TEST ORDERABLES Performing Organization Address City/State/[facility] Co de Phone Number [facility] [place] [address] * (ABNORMAL) BLOOD GAS 2 ARTERIAL (05/31/2017 11:13 AM EST) pH, Arterial 7.39 7.35 - 7.45 [facility] PCO2, Arterial 38 35 - 45 mmHg [facility] PO2, Arterial 337(H) 85 - 104 mmHg [facility] Bicarbonate, Arterial 22.0 20.0 - 26.0 mmol/L [facility] Base Excess, Arterial -3.0 -3.0 - 3.0 mmol/L [facility] Hgb Blood Gas 9.8(L) 13.7 - 16.5 gm/dL [facility] [...] [facility] K Whole Blood 4.7 3.5 - 5.0 mmol/L [facility] Comment: Please note: Patients with WBC >100,000 may have falsely elevated Potassium levels. Contact the Clinical Chemistry Laboratory if there are any questions. ICa Whole Blood 1.13(L) 1.15 - 1.33 mmol/L [facility] Comment: Note: ??Total bilirubin higher than 20 mg/dL may lead to falsely low ionized calcium. CL Whole Blood 111(H) 98 - 107 mmol/L [facility] Gluc Whole Bld 109 65 - 199 mg/dL [facility] Comment:Diabetes: >=200 mg/d L plus symptoms. Lactate WB 1.1 0.5 - 2.2 mmol/L [facility] Blood specimen (specimen) 05/31/2017 11:13 AM EST 05/31/2017 11:13 AM EST Gianna Tavarez MD POINT OF CARE TEST ORDERABLES [facility] [place] [id number] * Prepare RBC (05/31/2017 10:25 AM EST) Dispensed? Yes [facility] Blood specimen (specimen) 05/31/2017 10:25 AM EST 05/31/2017 10:20 AM EST Gianna Tavarez MD BLOOD BANK PRODUCT ORDERABLES [facility] [place] [address] * POCT HGB (05/31/2017 10:00 AM EST) POC Hemoglobin 7.8 g/dL Blood specimen (specimen) 05/31/2017 10:00 AM EST Ilda Montero MD POINT OF CARE TEST O RDERABLES * Prothrombin Time (05/31/2017 9:06 AM EST) Prothrombin Time 13.9 11.8 - 14.0 sec [facility] International Normalization Ratio 1.1 0.9 - 1.1 [facility] Comment: An INR [...] Comment Spec In Lab Cally Lopez Olson OR SCRUB TECH HEMATOLOGY ORDERABLE S Performing Organization Address City/State/[facility] Co de Phone Number [facility] [place] [address] documented in this encounter Visit Diagnoses Diagnosis [...] 5% 100 mL (COMPLETED) 2 g, Intravenous, FINANCIAL ASSISTANT TO O.R., 1 dose, On Wed05/31/17 at [...] injection 5,000 Units (COMPLETED) 5,000 Units, Subcutaneous, FINANCIAL ASSISTANT TO O.R., 1 dose, On Wed05/31/17 at [...] Routine documented in this encounter Care Teams Scarrer Relationship Specialty Start Date End Date Carroll Fuentes DO [address] [place] [address] PCP - General 09/23/11 10/20/22 documented as of this encounter
--- OUTSIDE RECORDS SUMMARY | 2024-05-23 13:32 | XMS_ITS | Encounter Summary ---
Author Organization [facility] Address [facility] [place] [address] Care Team Providers Care Flare Maker Name Role Phone Carroll Fuentes DO Primary Care Provider [phone] Reason for Visit * Auth/Cert Specialty Diagnoses / Procedures Referred By Shashi ko Referred To Contact Diagnoses Renal mass renal mass UNK Procedures PRO LAP, RADICAL NEPHRECTOMY @LAPAROSCOPY, RADICAL NEPHRECTOMY (WRVU 25.06) Referral ID Status Reason Start Date Expiration Date Visits Re quested Visits Authorized [id number] 1 1 Encounter Details Date Type Department Care Team (Late st Contact Info) Description 05/31/2017 10:31 AM EST Anesthesia Event [place] [address] Ilda Montero MD [facility] DR [place]Y [place] [address] Cally Olson, DATA PROCESSING CONSULTANT [address] [facility], [facility] 3B-1 [place] [address] Anesthesia Record Procedure Summary Procedure Name Responsible [...] 1215 Break/Relief In Naz Lopez McMa ster, SUPERINTENDENT LOGGING 1246 Break/Relief Out 1319 ABG Data Arterial [...] cephalic vein (lateral side of arm), right; zbzy-wed-conuoc catheter system; 18 gauge, 1 in length; [...] 1118; median cubital vein (antecubital fossa), right; humv-cok-iogbia catheter system; 16 gauge; lmoss; site symptomatic; [...] Ananth Musa - 05/31/2017 3:12 PM EST [facility] Department of Anesthesiology Post-procedure Note Patient: Adama Ram Procedure Summary Date Anesthesia Start Anesthesia Stop Room / Location 05/31/17 1031 1510 [facility] OR 28 / [facility] MAIN OR Procedure Diagnosis Surgeon Responsible Provider @LAPAROSCOPY, RADICAL NEPHRECTOMY (WRVU 25.06) (Left Flank) (renal mass) Jax Mills MD Fillinger, Mary P, MD All Anesthesia Providers: Anesthesiologist: Ilda Montero MD Solar Consultant: Ananth Musa MD Most Recent Vitals: 05/31/17 [...] Length: 10 cm Gauge: 21 Needle Type: N-hjbom-exbcw Medication injection made incrementally with aspirations. Nerve [...] GFR 15-29 ml/min ??? 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 event coordinator marketing and sales current use of immunosuppressive drug ??? H/O [...] FISTULA performed by Camilo Ireland MD at [facility] MAIN OR ??? PRO VASCULAR SURGERY [...] prior to procedure Ananth Musa MD, Pg# [id number] 05/30/2017 Marine Designer Addendum: As above. Pt took lovenox bridge [...] consented to blood products. Plan discussed with SUPERINTENDENT LOGGING. PAT Staff Note documented in this encounter [...] Length: 10 cm Gauge: 21 Needle Type: L-dxccx-gwlnw Medication injection made incrementally with aspirations. Nerve infiltration solution through a needle Bupivicaine 0.5% 30 mL Resident: ? JESENIA RADFORD Second Resident: ? Fellow: ? Attending Physician: ??SHERIF BURGER ?? ~~~~~~~~~~~~~~~~~~~~~~~~~~~~~~~~~~~~~~~~~~~~~~~~~~~~~~~~~~~~ Sherif Burger MD CHOIR TEACHER CHRIS documented in this encounter Visit Diagnoses [...] dextrose 5% 100 mL 2 g, Intravenous, GRAND SCRIBE TO O.R., 1 dose, On Wed05/31/17 at [...] subcutaneous injection 5,000 Units 5,000 Units, Subcutaneous, GRAND SCRIBE TO O.R., 1 dose, On Wed05/31/17 at [...] EST documented in this encounter Care Teams Flare Maker Relationship Specialty Start Date End Date Carroll Fuentes DO [address] [place] [address] PCP - General 09/23/11 10/20/22 documented as of this encounter
--- OUTSIDE RECORDS SUMMARY | 2024-05-23 13:32 | XMS_ITS | Encounter Summary ---
Author Organization [facility] Address [facility] [place] [address] Care Team Providers Care Clinic Director Name Role Phone AlfredoCarroll allison Primary Care Provider Encounter Details Date Type Department Care Team (Latest Contact Info) Description 06/29/2017 9:34 PM EST - 06/29/2017 11:59 PM [facility] [place] [address] Discharge Disposition: Home Social History Tobacco Use [...] 11:15 AM EST) Tacrolimus <3.0 ng/mL [facility] Comment: Trough therapeutic: ??5-15 ng/mL Performed by ultra-performance liquid chromatography tandem mass spectrometry (UPLCMS/MS). This test was developed and its performance characteristics determined by [facility]. It has not been cleared [...] ORDERAB LES [facility] [place] [address] documented in this encounter Visit Diagnoses Not on filedocumented in this encounter Care Teams Clinic Director Relationship Specialty Start Date End Date Carroll Fuentes DO [address] [place] [address] PCP - General 09/23/11 10/20/22 documented as of this encounter
--- OUTSIDE RECORDS SUMMARY | 2024-05-23 13:32 | XMS_ITS | Encounter Summary ---
[place] [address] Care Team Providers Care Piano Teacher Name Role Phone Carroll Fuentes DO Primary Care Provider [phone] Reason for Visit * Reason Onset Date Comments Medication Refill 05/27/2017 Encounter Details Date Type Department Care Team (Late st Contact Info) Description 05/27/2017 Refill [place] [address] Crystal Brown, [facility] Social History Tobacco Use Types [...] on filedocumented in this encounter Care Teams Piano Teacher Relationship Specialty Start Date End Date Carroll Fuentes DO [address] [place] [address] PCP - General 09/23/11 10/20/22 documented as of this encounter
--- OUTSIDE RECORDS SUMMARY | 2024-05-23 13:32 | XMS_ITS | Encounter Summary ---
Author Organization [facility] [place] [address] Care Team Providers Care Precision Farming Coordinator Name Role Phone AlfredoCarroll allison Primary Care Provider [phone] Encounter Details Date Type Department Care Team (Late st Contact Info) Description 06/23/2017 Telephone [place] [address] Crystal Brown CMA Social History Tobacco Use [...] warfarin 5 mg to be filled at [facility] in [facility]. documented in this encounter Plan of Treatment Not on file documented as of this encounter Visit Diagnoses Not on filedocumented in this encounter Care Teams Precision Farming Coordinator Relationship Specialty Start Date End Date Carroll Fuentes DO [address] [place] [address] [address] [facility] [address] [place] [address] PCP - General 09/23/11 10/20/22 documented as of this encounter
--- OUTSIDE RECORDS SUMMARY | 2024-05-23 13:32 | XMS_ITS | Encounter Summary ---
Author Organization [facility] Address [facility] [place] [address] Care Team Providers Care Decontaminator Name Role Phone AlfredoCarroll allison Primary Care Provider [phone] Reason for Visit * Reason Onset Date Comments Medication Refill 06/28/2017 Encounter Details Date Type Department Care Team (Late st Contact Info) Description 06/28/2017 Refill [place] [address] Crystal Brown CMA Social History Tobacco Use [...] on filedocumented in this encounter Care Teams Decontaminator Relationship Specialty Start Date End Date Carroll Fuentes DO [address] [facility] [address] [place] [address] PCP - General 09/23/11 10/20/22 documented as of this encounter
--- OUTSIDE RECORDS SUMMARY | 2024-05-23 13:32 | XMS_ITS | Encounter Summary ---
Author Organization Formerly [facility] [place] [address] Care Team Providers Care It Sales Executive Name Role Phone AlfredoCarroll geiger Primary Care Provider Encounter Details Date Type Department Care Team (Latest Contact Info) Description 06/28/2017 8:40 AM EST Laboratory Appointment Lab [address] [place] [address] Kidney replaced by transplant Social History Tobacco [...] (06/28/2017 8:59 AM EST) Plat estimate Normal [facility] RBC Morphology Abnormal [facility] Macrocyte 1-5 /HPF [facility] Yovanny Cells 1-5 /HPF [facility] Blood specimen (specimen) 06/28/2017 8:59 AM EST 06/28/2017 9:04 AM EST Narrative Resulting Agency Comment Spec In Lab Anup Hawkins MD HEMATOLOGY ORDERA BLES Performing Organization Address City/[facility]/ZIP Co de Phone Number [facility] [place] [address] * (ABNORMAL) Differential, Automated (06/28/2017 8:59 AM EST) Neutrophil % 67.9 % [facility] Neutrophil Absolute 3.54 1.70 - 6.10 x10(3)/mc L [facility] Lymph % 16.3 % [facility] Lymphocytes Abs 0.8(L) 0.9 - 3.2 x10(3)/mc L [facility] Monocyte % 9.8 % [facility] Monocyte Abs 0.5 0.3 - 0.9 x10(3)/mc L [facility] Eos % 5.0 % [facility] Eosinophils Abs 0.3 0.0 - 0.4 x10(3)/mc L [facility] Basophil % 0.8 % [facility] Baso Absolute 0.0 0.0 - 0.1 x10(3)/mc L [facility] Immature Gran % 0.20 % [facility] Comment: Immature granulocytes(IG's)percentage and absolute count will include metamyelocytes, myelocytes, and promyelocytes. Blood smears from CBCs yielding IG's will be scanned manually for concordance. If this scan disagrees with the automated IG or if promyelocytes are noted, a manual differential will be performed. Immature Gran Absolute 0.01 0.00 - 0.04 x10(3)/mc L [facility] Blood specimen (specimen) 06/28/2017 8:59 AM EST 06/28/2017 9:04 AM EST Narrative Resulting Agency Comment Spec In Lab Anup Hawkins MD HEMATOLOGY ORDERA BLES Performing Organization Address City/[facility]/ZIP Co de Phone Number [facility] [place] [address] * (ABNORMAL) Hemogram (06/28/2017 8:59 AM EST) White Blood Cell 5.2 4.0 - 9.5 x10(3)/[facility] Red Blood Cell 3.41(L) 4.58 - 5.54 x10(6)/[facility] Hemoglobin 10.3(L) 13.7 - 16.5 gm/dL [facility] Hematocrit 33.8(L) 40.5 - 48.5 % [facility] Mean Cell Volume 99.1(H) 82.9 - 93.1 [facility] Mean Cell Hemoglobin 30.2 27.5 - 32.1 pg [facility] Mean Cell Hemoglobin Concentration 30.5(L) 32.0 - 35.7 gm/dL [facility] Platelet 204 145 - 357 x10(3)/[facility] RDW Standard Deviation 58.9(H) 36.0 - 45.0 [facility] RDW coefficient of variation 16.0(H) 11.4 - 13.8 % [facility] Mean Platelet Volume 9.6 7.6 - 12.9 [facility] NRBC% auto 0.0 % [facility] NRBC Absolute 0.000 0.000 - 0.000 x10(3)/[facility] Blood specimen (specimen) 06/28/2017 8:59 AM EST 06/28/2017 9:04 AM EST Narrative Resulting Agency Comment Spec In Lab Anup Hawkins MD HEMATOLOGY ORDERA BLES [facility] [place] [address] * Gold Tube HOLD (06/28/2017 8:59 AM EST) Gold Hold Sample in lab. [facility] Blood specimen (specimen) 06/28/2017 8:59 AM EST 06/28/2017 9:04 AM EST Anup Hawkins MD CHEMISTRY ORDERAB LES Performing Organization Address [facility] Co de Phone Number [facility] [place] [address] * Lavender Tube HOLD (06/28/2017 8:59 AM EST) Lavender Hold Sample in lab. [facility] Blood specimen (specimen) 06/28/2017 8:59 AM EST 06/28/2017 9:04 AM EST Anup Hawkins MD HEMATOLOGY ORDERA BLES Performing Organization Address [facility] Co de Phone Number [facility] [place] [address] * Uric acid (06/28/2017 8:59 AM EST) Uric Acid 4.8 3.5 - 8.5 mg/dL [facility] Blood specimen (specimen) 06/28/2017 8:59 AM EST 06/28/2017 9:04 AM EST Narrative Resulting Agency Comment Spec In Lab Anup Hawkins MD CHEMISTRY ORDERAB LES Performing Organization Address [facility] de Phone Number [facility] [place] [address] * Tacrolimus level (06/28/2017 8:59 AM EST) Tacrolimus <3.0 ng/mL [facility] Comment: Trough therapeutic: ??5-15 ng/mL Performed by ultra-performance liquid chromatography tandem mass spectrometry (UPLCMS/MS). This test was developed and its performance characteristics determined by [facility]. It has not been cleared or [...] Performing Organization Address [facility] Co de Phone Number [facility] [place] [address] * Reticulocyte Count (06/28/2017 8:59 AM EST) Reticulocyte % 1.0 0.7 - 2.6 % [facility] Retic Abs # 0.030 0.030 - 0.120 x10(6)/mcL [facility] Immature Retic% 8.7 0.0 - 15.6 % [facility] Reticulated Hgb 33.1 31.3 - 40.2 pg [facility] Blood specimen (specimen) 06/28/2017 8:59 AM EST 06/28/2017 9:04 AM EST Narrative Resulting Agency Comment Spec In Lab Anup Hawkins MD HEMATOLOGY ORDERA BLES Performing Organization Address [facility] de Phone Number [facility] [place] [address] * Phosphorus (06/28/2017 8:59 AM EST) Phosphorus 4.4 2.5 - 4.5 mg/dL [facility] Blood specimen (specimen) 06/28/2017 8:59 AM EST 06/28/2017 9:04 AM EST Narrative Resulting Agency Comment Spec In Lab Anup Hawkins MD CHEMISTRY ORDERAB LES Performing Organization Address [facility] Co de Phone Number [facility] [place] [address] * Magnesium (06/28/2017 8:59 AM EST) Magnesium 0.82 0.69 - 1.07 mmol/L [facility] Blood specimen (specimen) 06/28/2017 8:59 AM EST 06/28/2017 9:04 AM EST Narrative Resulting Agency Comment Spec In Lab Anup Hawkins MD CHEMISTRY ORDERAB LES [facility] [place] [address] * (ABNORMAL) Comprehensive metabolic panel (non-fasting) (06/28/2017 8:59 AM EST) Glucose 105 65 - 199 mg/dL [facility] Comment:Diabetes: >=200 mg/d L plus symptoms Blood Urea Nitrogen 53(H) 10 - 20 mg/dL [facility] Creatinine 2.24(H) 0.80 - 1.50 mg/dL [facility] Sodium 146(H) 135 - 145 mmol/L [facility] Potassium 5.0 3.5 - 5.0 mmol/L [facility] Comment: Please note: ??Patients with WBC >100,000 may have falsely elevated Potassium levels. ??For accurate Potassium quantification in these patients send serum separator tube (gold top) for subsequent determinations. ??Contact the Clinical Chemistry Laboratory if there are any questions. Chloride 118(H) 98 - 107 mmol/L [facility] Carbon Dioxide 17(L) 22 - 31 mmol/L [facility] Anion Gap 11 5 - 15 mmol/L [facility] Calcium 8.4(L) 8.5 - 10.5 mg/dL [facility] Protein, Total 6.8 6.1 - 8.0 gm/dL [facility] Albumin 4.2 3.2 - 5.2 gm/dL [facility] Aspartate Aminotransferase 19 0 - 39 unit/L [facility] Alanine Aminotransferase 11 0 - 55 unit/L [facility] Alkaline Phosphatase 116 40 - 120 unit/L [facility] Bilirubin, Total 0.3 0.2 - 1.3 mg/dL [facility] Est Glomerular Filtration Rate 31(L) >=60 [facility] Comment: The reported eGFR should be multiplied by 1.2 for patients. The MDRD is not an appropriate measure of renal function for patients with body mass extremes or in patients with acute kidney failure. http://MyCare/DHnkdep [email or web address]/DHMCnkf Blood specimen (specimen) 06/28/2017 8:59 AM EST 06/28/2017 9:04 AM EST Narrative Resulting Agency Comment Spec In Lab Anup Hawkins MD CHEMISTRY ORDERAB LES [facility] [place] [address] * Cholesterol, total (06/28/2017 8:59 AM EST) Cholesterol, Total 143 <=239 mg/dL [facility] Lipid Interpretation See Note [facility] Comment: Lipid management should be guided by a patient? s ASCVD risk, goals and preferences. ACC/AHA Guidelines recommend high intensity statin if clinical ASCVD or LDL greater than or equal to 190 mg/dL. http://[employer]/MSO-DUD-Abwslvinf Adults aged 40-75 with LDL 70-189 mg/dL should have their 10 year ASCVD risk estimated with the ACC/AHA ASCVD risk sales promotion officer http://tools.acc.org/WOUIT-Ijcf-Yurecsbbg/ Statin should be discussed if risk greater [...] MD CHEMISTRY ORDERAB LES Performing Organization Address City/[facility]/ZIP Co de Phone Number [facility] [place] [address] * Urinalysis Microscopic Exam (06/28/2017 8:56 AM EST) RBC, Urine <1 0 - 3 /HPF [facility] WBC, Urine <1 0 - 3 /HPF [facility] Urine specimen obtained by clean catch procedure (specimen) 06/28/2017 8:56 AM EST 06/28/2017 9:05 AM EST Narrative Resulting Agency Comment Spec In Lab Anup Hawkins MD URINE ORDERABLES Performing Organization Address [facility] Co de Phone Number [facility] [place] [address] * (ABNORMAL) Urinalysis with reflex Culture (06/28/2017 8:56 AM EST) Glucose, Urine Dipstick Negative Negative mg/dL [facility] Leukocytes, Urine Dipstick Negative Negative [facility] Appearance, Urine Dipstick Clear Clear [facility] Specific [place] Urine Automated 1.014 1.002 - 1.030 [facility] Color, Urine Dipstick Yellow Yellow [facility] Reflex to Culture No [facility] Urine specimen obtained by clean catch procedure (specimen) 06/28/2017 8:56 AM EST 06/28/2017 9:05 AM EST Narrative Resulting Agency Comment Spec In Lab Anup Hawkins MD URINE ORDERABLES Performing Organization Address City/[facility] Co de Phone Number [facility] [place] [address] * (ABNORMAL) Protein/Creatinine Ratio, urine (06/28/2017 8:56 AM EST) Creatinine, Urine 61 mg/dL [facility] Protein, Urine 145(H) 0 - 12 mg/dL [facility] Protein / Creatinine Ratio, Urine 2.4 ratio [facility] Urine specimen (specimen) 06/28/2017 8:56 AM EST 06/28/2017 9:05 AM EST Narrative Resulting Agency Comment Spec In Lab Anup Hawkins MD URINE ORDERABLES Performing Organization Address City/[facility] Co de Phone Number [facility] [place] [address] documented in this encounter Visit Diagnoses Diagnosis Kidney replaced by transplant documented in this encounter Care Teams It Sales Executive Relationship Specialty Start Date End Date Carroll Fuentes DO [address] [place] [address] PCP - General 09/23/11 10/20/22 documented as of this encounter
--- OUTSIDE RECORDS SUMMARY | 2024-05-23 13:32 | XMS_ITS | Encounter Summary ---
Author Organization Formerly [facility] [place] [address] Care Team Providers Care Seed Trucker Name Role Phone AlfredoCarroll allison Primary Care Provider [phone] Reason for Visit * Reason Comments Kidney Transplant Follow-up Immunotherapy Post Hospital Discharge Encounter Details Date Type Department Care Team (Latest Contact Info) Description 06/28/2017 9:40 AM EST Office [place] [address] Anup Hawkins MD [facility] [place] [address] Kidney replaced by transplant; IgA nephropathy; Aftercare following organ transplant; Prophylactic immunotherapy; care home current use of immunosuppressive drug; [...] morning. New scripts to be sent to [facility] in [place], [place]. * Anup Hawkins MD - 06/28/2017 9:40 AM EST [facility] Transplant Nephrology Follow Up ? Date: 06/28/2017 [...] follow-up after recent hospitalization for his left siletz tribe nephrectomy. ? Interim Hx: Patient was just discharged from [facility] on 05/16 after recent TRISTIAN, Upper GI Bleed and diagnosis of malignant mass in left siletz tribe kidney. Patient describes feeling better since being discharge. Patient denies any recurrent episodes of hematemesis, and Hgb was 9.1 this AM. Patient remains on PPI BID. Patient renal graft function has plateaued --> with serum Cr of 2.87mg/dL this AM. Prior to that admit a complex intra renal siletz tribe kidney mass was detected on a screening U/S and a left partial nephrectomy was performed. 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 Patient is compliant with his medication regimen. Prior to recent admission, patient had experienced an approx 20lb weight loss (unintentional), and patient had CT of abdomen and pelvis performed while inpatient. Imaging showed several large siletz tribe renal masses --> that were concerningfor RCC [...] for diabetics, every 5 for non diabetics [place] kidney ultrasound looking for renal cell CA, [...] Office Visit from 06/28/2017 in Transplant at [place] Weight 77.6 kg (171 lb) Temp 36.4 [...] Unknown Abnormal Macrocytes Latest Units: /HPF 1-5 [place] Cells Latest Units: /HPF 1-5 Sodium Latest [...] UA Latest Ref Range: Clear Clear Spec [place] UA Latest Ref Range: 1.002 - 1.030 [...] recent hospitalization for partial nx for left siletz tribe papillary renal carcinoma ? Transplant Status/ Graft [...] AM EST) Gold Hold Sample in lab. [facility] Blood specimen (specimen) 06/28/2017 8:59 AM EST 06/28/2017 9:04 AM EST Anup Hawkins MD CHEMISTRY ORDERAB LES [facility] [place] [address] * Lavender Tube HOLD (06/28/2017 8:59 AM EST) Lavender Hold Sample in lab. [facility] Blood specimen (specimen) 06/28/2017 8:59 AM EST 06/28/2017 9:04 AM EST Anup Hawkins MD HEMATOLOGY ORDERA BLES [facility] [place] [address] * Uric acid (06/28/2017 8:59 AM EST) Uric Acid 4.8 3.5 - 8.5 mg/dL [facility] Blood specimen (specimen) 06/28/2017 8:59 AM EST 06/28/2017 9:04 AM EST Narrative Resulting Agency Comment Spec In Lab Anup Hawkins MD CHEMISTRY ORDERAB LES Performing Organization Address [facility] de Phone Number [facility] [place] [address] * Tacrolimus level (06/28/2017 8:59 AM EST) Tacrolimus <3.0 ng/mL [facility] Comment: Trough therapeutic: ??5-15 ng/mL Performed by ultra-performance liquid chromatography tandem mass spectrometry (UPLCMS/MS). This test was developed and its performance characteristics determined by [facility]. It has not been cleared [...] MD CHEMISTRY ORDERAB LES Performing Organization Address [facility] de Phone Number [facility] [place] [address] * Reticulocyte Count (06/28/2017 8:59 AM EST) Reticulocyte % 1.0 0.7 - 2.6 % [facility] Retic Abs # 0.030 0.030 - 0.120 x10(6)/mcL [facility] Immature Retic% 8.7 0.0 - 15.6 % [facility] Reticulated Hgb 33.1 31.3 - 40.2 pg [facility] Blood specimen (specimen) 06/28/2017 8:59 AM EST 06/28/2017 9:04 AM EST Narrative Resulting Agency Comment Spec In Lab Anup Hawkins MD HEMATOLOGY ORDERA BLES Performing Organization Address [facility] Co de Phone Number [facility] [place] [address] * Phosphorus (06/28/2017 8:59 AM EST) Pathologist [facility] Phosphorus 4.4 2.5 - 4.5 mg/dL [facility] Blood specimen (specimen) 06/28/2017 8:59 AM EST 06/28/2017 9:04 AM EST Narrative Resulting Agency Comment Spec In Lab Anup Hawkins MD CHEMISTRY ORDERAB LES Performing Organization Address [facility] Phone Number [facility] [place] [address] * Magnesium (06/28/2017 8:59 AM EST) [facility] Magnesium 0.82 0.69 - 1.07 mmol/L [facility] Blood specimen (specimen) 06/28/2017 8:59 AM EST 06/28/2017 9:04 AM EST Narrative Resulting Agency Comment Spec In Lab Anup Hawkins MD CHEMISTRY ORDERAB LES Performing Organization Address [facility] Phone Number [facility] [place] [address] * (ABNORMAL) Comprehensive metabolic panel (non-fasting) (06/28/2017 8:59 AM EST) Pathologist [facility] Glucose 105 65 - 199 mg/dL [facility] Comment:Diabetes: >=200 mg/d L plus symptoms Blood Urea Nitrogen 53(H) 10 - 20 mg/dL [facility] Creatinine 2.24(H) 0.80 - 1.50 mg/dL [facility] Sodium 146(H) 135 - 145 mmol/L [facility] Potassium 5.0 3.5 - 5.0 mmol/L [facility] Comment: Please note: ??Patients with WBC >100,000 may have falsely elevated Potassium levels. ??For accurate Potassium quantification in these patients send serum separator tube (gold top) for subsequent determinations. ??Contact the Clinical Chemistry Laboratory if there are any questions. Chloride 118(H) 98 - 107 mmol/L [facility] Carbon Dioxide 17(L) 22 - 31 mmol/L [facility] Anion Gap 11 5 - 15 mmol/L [facility] Calcium 8.4(L) 8.5 - 10.5 mg/dL [facility] Protein, Total 6.8 6.1 - 8.0 gm/dL [facility] Albumin 4.2 3.2 - 5.2 gm/dL [facility] Aspartate Aminotransferase 19 0 - 39 unit/L [facility] Alanine Aminotransferase 11 0 - 55 unit/L [facility] Alkaline Phosphatase 116 40 - 120 unit/L [facility] Bilirubin, Total 0.3 0.2 - 1.3 mg/dL [facility] Est Glomerular Filtration Rate 31(L) >=60 [facility] Comment: The reported eGFR should be multiplied by 1.2 for patients. The MDRD is not an appropriate measure of renal function for patients with body mass extremes or in patients with acute kidney failure. [email or web address] [place]/DHnkdep http://Atav[employer]/DHMCnkf Blood specimen (specimen) 06/28/2017 8:59 AM EST 06/28/2017 9:04 AM EST Narrative Resulting Agency Comment Spec In Lab Anup Hawkins MD CHEMISTRY ORDERAB LES [facility] [place] [address] * Cholesterol, total (06/28/2017 8:59 AM EST) Cholesterol, Total 143 <=239 mg/dL [facility] Lipid Interpretation See Note [facility] Comment: Lipid management should be guided by a patient? s ASCVD risk, goals and preferences. ACC/AHA Guidelines recommend high intensity statin if clinical ASCVD or LDL greater than or equal to 190 mg/dL. http://[employer] Sho[employer] Networkurofficial.fm.com/ADX-RSZ-Svrhbjvuw Adults aged 40-75 with LDL 70-189 mg/dL should have their 10 year ASCVD risk estimated with the ACC/AHA ASCVD risk auto body estimator http://tools.acc.org/BLPXH-Lnei-Yhhipojlh/ Statin should be discussed if risk greater [...] Lab Anup Hawkins MD CHEMISTRY ORDERAB LES [facility] [place] [address] * (ABNORMAL) Urinalysis with reflex Culture (06/28/2017 8:56 AM EST) Glucose, Urine Dipstick Negative Negative mg/dL [facility] Protein, Urine Dipstick 100(A) Negative mg/dL [facility] Bilirubin, [...] Clear Clear [facility] Specific [place] Urine Automated 1.014 1.002 - 1.030 [facility] Color, Urine Dipstick Yellow Yellow [facility] Reflex to Culture No [facility] Urine specimen obtained by clean catch procedure (specimen) 06/28/2017 8:56 AM EST 06/28/2017 9:05 AM EST Narrative Resulting Agency Comment Spec In Lab Anup Hawkins MD URINE ORDERABLES Performing Organization Address City/[facility] Co de Phone Number [facility] [place] [address] * (ABNORMAL) Protein/Creatinine Ratio, urine (06/28/2017 8:56 AM EST) Creatinine, Urine 61 mg/dL [facility] Protein, Urine 145(H) 0 - 12 mg/dL [facility] Protein / Creatinine Ratio, Urine 2.4 ratio [facility] Urine specimen (specimen) 06/28/2017 8:56 AM EST 06/28/2017 9:05 AM EST Narrative Resulting Agency Comment Spec In Lab Anup Hawkins MD URINE ORDERABLES Performing Organization Address City/[facility] Co de Phone Number [facility] [address] documented in this encounter Visit Diagnoses Diagnosis Kidney replaced by transplant IgA nephropathy Nephritis and nephropathy, not specified as acute or chronic, with unspecified pathological lesion in kidney Aftercare following organ transplant Prophylactic immunotherapy Need for prophylactic immunotherapy care home current use of immunosuppressive drug H/O kidney transplant Kidney replaced by transplant Primary papillary carcinoma of left kidney documented in this encounter Care Teams Seed Trucker Relationship Specialty Start Date End Date Carroll Garcia DO [address] [place] [address] PCP - General 09/23/11 10/20/22 documented as of this encounter
--- OUTSIDE RECORDS SUMMARY | 2024-05-23 13:32 | XMS_ITS | Encounter Summary ---
Author Organization [facility]ly [facility] Address [facility] [place] [address] Care Team Providers Care Owner Operator Tanker Truck Driver Name Role Phone Carroll Fuentes DO Primary Care Provider [phone] Encounter Details Date Type Department Care Team (Late st Contact Info) Description 05/28/2017 [place] [id number] Antony Will MD [facility] [place] [address] Social History Tobacco Use Types Packs/Day Years [...] Reynaldo Martinez - 05/28/2017 1:01 PM EST [facility] - - [place] Additional questions [...] on filedocumented in this encounter Care Teams Owner Operator Tanker Truck Driver Relationship Specialty Start Date End Date Carroll Fuentes DO [address] [place] [address] PCP - General 09/23/11 10/20/22 documented as of this encounter
--- OUTSIDE RECORDS SUMMARY | 2024-05-23 13:33 | XMS_ITS | Encounter Summary ---
Author Organization [facility] Address [facility] [place] [address] Care Team Providers Care Sport Internship Name Role Phone AlfredoCarroll allison Primary Care Provider [phone] Reason for Visit * Reason Comments Kidney Transplant Follow-up Immunotherapy Encounter Details Date Type Department Care Team (Latest Contact Info) Description 05/19/2017 11:20 AM EST Office [place] [address] Anup Hawkins MD [facility] [place] [address] Kidney replaced by transplant; senior care current use of immunosuppressive drug; Gastrointestinal hemorrhage, [...] nutritional or herbal supplements. Should he take Castaner supplement? Reviewed education tab. Reviewed immunizations; flu shot done in March at [facility] in [facility]. Doing much better!! Still a little blue haze * Ministerio Fontana DO - 05/19/2017 11:20 AM EST [facility] Transplant Nephrology Follow Up ? Date: 05/19/2017 [...] Interim Hx: Patient was just discharged from [facility] on 05/16 after recent TRISTIAN, Upper GI Bleed and diagnosis of malignant mass in left umatilla tribe kidney. Patient describes feeling better since [...] performed while inpatient. Imaging showed several large umatilla tribe renal masses --> that were concerning for [...] for diabetics, every 5 for non diabetics [place] kidney ultrasound looking for renal cell CA, [...] prograf trough was 5.2 this AM Left [place] Renal Mass: -concern for RCC v metastatic [...] mg/dL [facility] Protein, Urine Dipstick 30(A) Negative mg/dL [facility] Bilirubin, Urine Dipstick Negative Negative mg/dL [facility] Comment: Clinical correlation required for positive Urine Bilirubin results as false positive may occur with some drugs and drug related products. If a false positive is suspected a serum total bilirubin should be considered if clinically indicated. Urobilinogen, Urine Dipstick Normal Normal mg/dL [facility] pH, Urn (dipstick) 5.0 5.0 - 8.0 [facility] Blood, Urine Dipstick Negative Negative mg/dL [facility] Ketone, Urine Dipstick Negative Negative mg/dL [facility] Nitrite, Urine Dipstick Negative Negative [facility] Leukocytes, Urine Dipstick Negative Negative [facility] Appearance, Urine Dipstick Clear Clear [facility] Specific [place] Urine Automated 1.014 1.002 - 1.030 [facility] Color, Urine Dipstick Yellow Yellow [facility] Reflex to Culture No [facility] Urine specimen obtained by clean catch procedure (specimen) 05/19/2017 10:44 AM EST 05/19/2017 10:49 AM EST Narrative Resulting Agency Comment Spec In Lab Anup Hawkins MD URINE ORDERABLES Performing Organization Address City/[facility] Co de Phone Number [facility] [place] [address] * (ABNORMAL) Protein/Creatinine Ratio, urine (05/19/2017 10:44 AM EST) Creatinine, Urine 100 mg/dL [facility] Protein, Urine 46(H) 0 - 12 mg/dL [facility] Protein / Creatinine Ratio, Urine 0.5 ratio [facility] Urine specimen (specimen) 05/19/2017 10:44 AM EST 05/19/2017 10:49 AM EST Narrative Resulting Agency Comment Spec In Lab Anup Hawkins MD URINE ORDERABLES Performing Organization Address [facility] Co de Phone Number [facility] [place] [address] * Gold Tube HOLD (05/19/2017 10:43 AM EST) Gold Hold Sample in lab. [facility] Blood specimen (specimen) 05/19/2017 10:43 AM EST 05/19/2017 10:55 AM EST Anup Hawkins MD CHEMISTRY ORDERAB LES Performing Organization Address [facility] Co de Phone Number [facility] [place] [address] * Lavender Tube HOLD (05/19/2017 10:43 AM EST) Lavender Hold Sample in lab. [facility] Blood specimen (specimen) 05/19/2017 10:43 AM EST 05/19/2017 10:55 AM EST Anup Hawkins MD HEMATOLOGY ORDERA BLES Performing Organization Address [facility] Co de Phone Number [facility] [place] [address] * Uric acid (05/19/2017 10:43 AM EST) Uric Acid 4.6 3.5 - 8.5 mg/dL [facility] Blood specimen (specimen) 05/19/2017 10:43 AM EST 05/19/2017 10:55 AM EST Narrative Resulting Agency Comment Spec In Lab Anup Hawkins MD CHEMISTRY ORDERAB LES Performing Organization Address [facility] Phone Number [facility] [place] [address] * Tacrolimus level (05/19/2017 10:43 AM EST) Tacrolimus 5.2 ng/mL [facility] Comment: Trough therapeutic: ??5-15 ng/mL Performed by ultra-performance liquid chromatography tandem mass spectrometry (UPLCMS/MS). This test was developed and its performance characteristics determined by [facility]. It has not been cleared [...] ORDERAB LES Performing Organization Address [facility] Co de Phone Number [facility] [place] [address] * (ABNORMAL) Reticulocyte Count (05/19/2017 10:43 AM EST) Reticulocyte % 2.4 0.7 - 2.6 % [facility] Retic Abs # 0.070 0.030 - 0.120 x10(6)/mcL [facility] Immature Retic% 24.8(H) 0.0 - 15.6 % [facility] Reticulated Hgb 26.2(L) 31.3 - 40.2 pg [facility] Blood specimen (specimen) 05/19/2017 10:43 AM EST 05/19/2017 10:55 AM EST Narrative Resulting Agency Comment Spec In Lab Anup Hawkins MD HEMATOLOGY ORDERA BLES Performing Organization Address [facility] Co de Phone Number [facility] [place] [address] * Phosphorus (05/19/2017 10:43 AM EST) Phosphorus 3.2 2.5 - 4.5 mg/dL [facility] Blood specimen (specimen) 05/19/2017 10:43 AM EST 05/19/2017 10:55 AM EST Narrative Resulting Agency Comment Spec In Lab Anup Hawkins MD CHEMISTRY ORDERAB LES Performing Organization Address [facility] Co de Phone Number [facility] [place] [address] * (ABNORMAL) Magnesium (05/19/2017 10:43 AM EST) Magnesium 0.66(L) 0.69 - 1.07 mmol/L [facility] Blood specimen (specimen) 05/19/2017 10:43 AM EST 05/19/2017 10:55 AM EST Narrative Resulting Agency Comment Spec In Lab Anup Hawkins MD CHEMISTRY ORDERAB LES Performing Organization Address [facility] Co de Phone Number [facility] [place] [address] * (ABNORMAL) Comprehensive metabolic panel (non-fasting) (05/19/2017 10:43 AM EST) Glucose 94 65 - 199 mg/dL [facility] Comment:Diabetes: >=200 mg/d L plus symptoms Blood Urea Nitrogen 32(H) 10 - 20 mg/dL [facility] Creatinine 2.87(H) 0.80 - 1.50 mg/dL [facility] [...] 10.5 mg/dL [facility] Protein, Total 5.7(L) 6.1 - 8.0 gm/dL [facility] Albumin 3.4 3.2 - 5.2 gm/dL [facility] Aspartate Aminotransferase 13 0 - 39 unit/L [facility] Alanine Aminotransferase 10 0 - 55 unit/L [facility] Alkaline Phosphatase 115 40 - 120 unit/L [facility] Bilirubin, Total 0.3 0.2 - 1.3 mg/dL [facility] Est Glomerular Filtration Rate 23(L) >=60 [facility] Comment: The reported eGFR should be multiplied by 1.2 for patients. The MDRD is not an appropriate measure of renal function for patients with body mass extremes or in patients with acute kidney failure. http://ServiceFrame.SpaceFace/DHnkdep http://[employer]/DHMCnkf Blood specimen (specimen) 05/19/2017 10:43 AM EST 05/19/2017 10:55 AM EST Narrative Resulting Agency Comment Spec In Lab Anup Hawkins MD CHEMISTRY ORDERAB LES Performing Organization Address [facility] Co de Phone Number [facility] [place] [address] * Cholesterol, total (05/19/2017 10:43 AM EST) Cholesterol, Total 82 <=239 mg/dL [facility] Lipid Interpretation See Note [facility] Comment: Lipid management should be guided by a patient? s ASCVD risk, goals and preferences. ACC/AHA Guidelines recommend high intensity statin if clinical ASCVD or LDL greater than or equal to 190 mg/dL. http://ServiceFrame.com/JXV-ATN-Ujjqflngl Adults aged 40-75 with LDL 70-189 mg/dL should have their 10 year ASCVD risk estimated with the ACC/AHA ASCVD risk slip cover estimator http://tools.acc.org/IAIOK-Rdlr-Lduernxtr/ Statin should be discussed if risk greater [...] MD CHEMISTRY ORDERAB LES Performing Organization Address City/[facility]/ZIP Co de Phone Number [facility] [place] [address] documented in this encounter Visit Diagnoses Diagnosis Kidney replaced by transplant senior care current use of immunosuppressive drug Gastrointestinal hemorrhage, unspecified gastrointestinal hemorrhage type Left renal mass Unspecified disorder of kidney and ureter Bradycardia Other specified cardiac dysrhythmias Hypertension, unspecified type Renal mass Unspecified disorder of kidney and ureter documented in this encounter Care Teams Sport Internship Relationship Specialty Start Date End Date Alfredo, Carroll, DO [address] [place] [address] PCP - General 09/23/11 10/20/22 documented as of this encounter
--- OUTSIDE RECORDS SUMMARY | 2024-05-23 13:33 | XMS_ITS | Encounter Summary ---
Author Organization [facility] [place] [address] Care Team Providers Care Cuff Stitcher Name Role Phone AlfredoCarroll geiger Primary Care Provider [phone] Encounter Details Date Type Department Care Team (Latest Contact Info) Description 05/19/2017 10:20 AM EST Laboratory Appointment Lab [address] [place] [address] Kidney replaced by transplant Social History Tobacco [...] RBC, Urine <1 0 - 3 /HPF [facility] WBC, Urine 1 0 - 3 /HPF [facility] Squamous Epithelial Cells Raw Data, Urine <1 <=4 /HPF [facility] Urine specimen obtained by clean catch procedure (specimen) 05/19/2017 10:44 AM EST 05/19/2017 10:49 AM EST Narrative Resulting Agency Comment Spec In Lab Anup Hawkins MD URINE ORDERABLES [facility] [place] [address] * (ABNORMAL) Urinalysis with reflex Culture (05/19/2017 10:44 AM EST) Glucose, Urine Dipstick Negative Negative mg/dL [facility] Protein, Urine Dipstick 30(A) Negative mg/dL [facility] Bilirubin, Urine Dipstick Negative Negative mg/dL [facility] Comment: Clinical correlation required for positive Urine Bilirubin results as false positive may occur with some drugs and drug related products. If a false positive is suspected a serum total bilirubin should be considered if clinically indicated. Urobilinogen, Urine Dipstick Normal Normal mg/dL [facility] pH, Urn (dipstick) 5.0 5.0 - 8.0 [facility] Blood, Urine Dipstick Negative Negative mg/dL [facility] Ketone, Urine Dipstick Negative Negative mg/dL [facility] Nitrite, Urine Dipstick Negative Negative [facility] Leukocytes, Urine Dipstick Negative Negative [facility] Appearance, Urine Dipstick Clear Clear [facility] Specific [place] Urine Automated 1.014 1.002 - 1.030 [facility] Color, Urine Dipstick Yellow Yellow [facility] Reflex to Culture No [facility] Urine specimen obtained by clean catch procedure (specimen) 05/19/2017 10:44 AM EST 05/19/2017 10:49 AM EST Narrative Resulting Agency Comment Spec In Lab Anup Hawkins MD URINE ORDERABLES [facility] [place] [address] * (ABNORMAL) Protein/Creatinine Ratio, urine (05/19/2017 10:44 AM EST) Creatinine, Urine 100 mg/dL [facility] Protein, Urine 46(H) 0 - 12 mg/dL [facility] Protein / Creatinine Ratio, Urine 0.5 ratio [facility] Urine specimen (specimen) 05/19/2017 10:44 AM EST 05/19/2017 10:49 AM EST Narrative Resulting Agency Comment Spec In Lab Anup Hawkins MD URINE ORDERABLES [facility] [place] [address] * (ABNORMAL) Differential, Automated (05/19/2017 10:43 AM EST) Neutrophil % 71.8 % [facility] Neutrophil Absolute 2.93 1.70 - 6.10 x10(3)/mc L [facility] Lymph % 12.7 % [facility] Lymphocytes Abs 0.5(L) 0.9 - 3.2 x10(3)/mc L [facility] Monocyte % 12.7 % [facility] Monocyte Abs 0.5 0.3 - 0.9 x10(3)/mc L [facility] Eos % 2.4 % [facility] Eosinophils Abs 0.1 0.0 - 0.4 x10(3)/mc L [facility] Basophil % 0.2 % [facility] Baso Absolute 0.0 0.0 - 0.1 x10(3)/mc L [facility] Immature Gran % 0.20 % [facility] Comment: Immature granulocytes(IG's)percentage and absolute count will include metamyelocytes, myelocytes, and promyelocytes. Blood smears from CBCs yielding IG's will be scanned manually for concordance. If this scan disagrees with the automated IG or if promyelocytes are noted, a manual differential will be performed. Immature Gran Absolute 0.01 0.00 - 0.04 x10(3)/mc L [facility] Blood specimen (specimen) 05/19/2017 10:43 AM EST 05/19/2017 10:55 AM EST Narrative Resulting Agency Comment Spec In Lab Anup Hawkins MD HEMATOLOGY ORDERA BLES [facility] [place] [address] * (ABNORMAL) Hemogram (05/19/2017 10:43 AM EST) White Blood Cell 4.1 4.0 - 9.5 x10(3)/mc L [facility] Red Blood Cell 3.04(L) 4.58 - 5.54 x10(6)/[facility] Hemoglobin 9.1(L) 13.7 - 16.5 gm/dL [facility] Hematocrit 28.0(L) 40.5 - 48.5 % [facility] Mean Cell Volume 92.1 82.9 - 93.1 [facility] Mean Cell Hemoglobin 29.9 27.5 - 32.1 pg [facility] Mean Cell Hemoglobin Concentration 32.5 32.0 - 35.7 gm/dL [facility] Platelet 217 145 - 357 x10(3)/[facility] RDW Standard Deviation 50.8(H) 36.0 - 45.0 [facility] RDW coefficient of variation 15.8(H) 11.4 - 13.8 % [facility] Mean Platelet Volume 9.9 7.6 - 12.9 [facility] NRBC% auto 0.0 % [facility] NRBC Absolute 0.000 0.000 - 0.000 x10(3)/[facility] Blood specimen (specimen) 05/19/2017 10:43 AM EST 05/19/2017 10:55 AM EST Narrative Resulting Agency Comment Spec In Lab Anup Hawkins MD HEMATOLOGY ORDERA BLES [facility] [place] [address] * Gold Tube HOLD (05/19/2017 10:43 AM EST) Gold Hold Sample in lab. [facility] Blood specimen (specimen) 05/19/2017 10:43 AM EST 05/19/2017 10:55 AM EST Anup Hawkins MD CHEMISTRY ORDERAB LES Performing Organization Address City/[facility]/ZIP Co de Phone Number [facility] [place] [address] * Lavender Tube HOLD (05/19/2017 10:43 AM EST) Lavender Hold Sample in lab. [facility] Blood specimen (specimen) 05/19/2017 10:43 AM EST 05/19/2017 10:55 AM EST Anup Hawkins MD HEMATOLOGY ORDERA BLES Performing Organization Address City/[facility]/ZIP Co de Phone Number [facility] [place] [address] * Uric acid (05/19/2017 10:43 AM EST) Uric Acid 4.6 3.5 - 8.5 mg/dL [facility] Blood specimen (specimen) 05/19/2017 10:43 AM EST 05/19/2017 10:55 AM EST Narrative Resulting Agency Comment Spec In Lab Anup Hawkins MD CHEMISTRY ORDERAB LES Performing Organization Address City/[facility]/ZIP Co de Phone Number [facility] [place] [address] * Tacrolimus level (05/19/2017 10:43 AM EST) Tacrolimus 5.2 ng/mL [facility] Comment: Trough therapeutic: ??5-15 ng/mL Performed by ultra-performance liquid chromatography tandem mass spectrometry (UPLCMS/MS). This test was developed and its performance characteristics determined by [facility]. It has not been cleared [...] Address [facility] de Phone Number [facility] [place] [address] * (ABNORMAL) Reticulocyte Count (05/19/2017 10:43 AM EST) Reticulocyte % 2.4 0.7 - 2.6 % [facility] Retic Abs # 0.070 0.030 - 0.120 x10(6)/mcL [facility] Immature Retic% 24.8(H) 0.0 - 15.6 % [facility] Reticulated Hgb 26.2(L) 31.3 - 40.2 pg [facility] Blood specimen (specimen) 05/19/2017 10:43 AM EST 05/19/2017 10:55 AM EST Narrative Resulting Agency Comment Spec In Lab Anup Hawkins MD HEMATOLOGY ORDERA BLES Performing Organization Address [facility] de Phone Number [facility] [place] [address] * Phosphorus (05/19/2017 10:43 AM EST) Phosphorus 3.2 2.5 - 4.5 mg/dL [facility] Blood specimen (specimen) 05/19/2017 10:43 AM EST 05/19/2017 10:55 AM EST Narrative Resulting Agency Comment Spec In Lab Anup Hawkins MD CHEMISTRY ORDERAB LES [facility] [place] [address] * (ABNORMAL) Magnesium (05/19/2017 10:43 AM EST) Magnesium 0.66(L) 0.69 - 1.07 mmol/L [facility] Blood specimen (specimen) 05/19/2017 10:43 AM EST 05/19/2017 10:55 AM EST Narrative Resulting Agency Comment Spec In Lab Anup Hawkins MD CHEMISTRY ORDERAB LES Performing Organization Address City/[facility]/ZIP Co de Phone Number [facility] [place] [address] * (ABNORMAL) Comprehensive metabolic panel (non-fasting) (05/19/2017 10:43 AM EST) [facility] Glucose 94 65 - 199 mg/dL [facility] Comment:Diabetes: >=200 mg/d L plus symptoms Blood Urea Nitrogen 32(H) 10 - 20 mg/dL [facility] Creatinine 2.87(H) 0.80 - 1.50 mg/dL [facility] Sodium 142 135 - 145 mmol/L [facility] Potassium 4.0 3.5 - 5.0 mmol/L [facility] Comment: Please note: ??Patients with WBC >100,000 may have falsely elevated Potassium levels. ??For accurate Potassium quantification in these patients send serum separator tube (gold top) for subsequent determinations. ??Contact the Clinical Chemistry Laboratory if there are any questions. Chloride 106 98 - 107 mmol/L [facility] Carbon Dioxide 23 22 - 31 mmol/L [facility] Anion Gap 13 5 - 15 mmol/L [facility] Calcium 8.1(L) 8.5 - 10.5 mg/dL [facility] Protein, Total 5.7(L) 6.1 - 8.0 gm/dL [facility] Albumin 3.4 3.2 - 5.2 gm/dL [facility] Aspartate Aminotransferase 13 0 - 39 unit/L [facility] Alanine Aminotransferase 10 0 - 55 unit/L [facility] Alkaline Phosphatase 115 40 - 120 unit/L [facility] Bilirubin, Total 0.3 0.2 - 1.3 mg/dL [facility] Est Glomerular Filtration Rate 23(L) >=60 [facility] Comment: The reported eGFR should be multiplied by 1.2 for patients. The MDRD is not an appropriate measure of renal function for patients with body mass extremes or in patients with acute kidney failure. http://Clipyoo/DHnkdep http://Clipyoo/DHMCnkf Blood specimen (specimen) 05/19/2017 10:43 AM EST 05/19/2017 10:55 AM EST Narrative Resulting Agency Comment Spec In Lab Anup Hawkins MD CHEMISTRY ORDERAB LES Performing Organization Address City/State/[facility] Co de Phone Number [facility] [place] [phone] * Cholesterol, total (05/19/2017 10:43 AM EST) Cholesterol, Total 82 <=239 mg/dL [facility] Lipid Interpretation See Note [facility] Comment: Lipid management should be guided by a patient? s ASCVD risk, goals and preferences. ACC/AHA Guidelines recommend high intensity statin if clinical ASCVD or LDL greater than or equal to 190 mg/dL. http://Clipyoo/IXB-BYH-Bkpqzdtut Adults aged 40-75 with LDL 70-189 mg/dL should have their 10 year ASCVD risk estimated with the ACC/AHA ASCVD risk yardage estimator http://tools.acc.org/XRLTI-Adid-Qmbehjbgi/ Statin should be discussed if risk greater [...] MD CHEMISTRY ORDERAB LES Performing Organization Address City/State/[facility] Co de Phone Number [facility] [place] [address] documented in this encounter Visit Diagnoses Diagnosis Kidney replaced by transplant documented in this encounter Care Teams Cuff Stitcher Relationship Specialty Start Date End Date Carroll Fuentes DO [address] [place] [address] PCP - General 09/23/11 10/20/22 documented as of this encounter
--- OUTSIDE RECORDS SUMMARY | 2024-05-23 13:33 | XMS_ITS | Encounter Summary ---
Author Organization [facility] Address [facility] [place] [address] Care Team Providers Care Furnace Filler Name Role Phone Carroll Fuentes DO Primary Care Provider [phone] Encounter Details Date Type Department Care Team (Latest Contact Info) Description 05/26/2017 11:28 AM EST - 05/26/2017 11:59 PM [facility] Encounter XRay at [address] [place] [address] Jax Mills MD [facility] [place] [address] Renal mass Discharge Disposition: Home Social History [...] by Dr. Fuentes. You have refills at [facility] in [facility]. 06/02/2017 06/28/2017 warfarin (COUMADIN) 5 mg Tablet [...] ureter documented in this encounter Care Teams Furnace Filler Relationship Specialty Start Date End Date Carroll Fuentes DO [address] [place] [address] PCP - General 09/23/11 10/20/22 documented as of this encounter
--- OUTSIDE RECORDS SUMMARY | 2024-05-23 13:33 | XMS_ITS | Encounter Summary ---
Author Organization [facility] [place] [address] Care Team Providers Care Bow Machine Operator Name Role Phone Alfredo, Carroll MIX Primary Care Provider Encounter Details Date Type Department Care Team (Late st Contact Info) Description 05/26/2017 10:40 AM EST [place] [address] Renal mass Social History Tobacco Use Types [...] (05/26/2017 11:19 AM EST) Plat estimate Normal [facility] RBC Morphology Abnormal [facility] Ovalocytes 1-5 /HPF [facility] [place] Cells 1-5 /HPF [facility] Blood specimen (specimen) 05/26/2017 11:19 AM EST 05/26/2017 11:37 AM EST Narrative Resulting Agency Comment Spec In Lab Jax Mills MD HEMATOLOGY ORDERAB LES Performing Organization Address [facility]/ZIP Co de Phone Number [facility] [place] [address] * ABORH Recheck Status (05/26/2017 11:19 AM EST) ABORH Type Recheck Completed [facility] Blood specimen (specimen) 05/26/2017 11:19 AM EST 05/26/2017 11:23 AM EST Narrative Resulting Agency Comment Spec In Lab Jax Mills MD BLOOD BANK LAB ORD ERABLES Performing Organization Address City/[facility]/ZIP Co de Phone Number [facility] [place] [address] * (ABNORMAL) Differential, Automated (05/26/2017 11:19 AM EST) Neutrophil % 67.8 % [facility] Neutrophil Absolute 2.38 1.70 - 6.10 x10(3)/[facility] Lymph % 14.5 % [facility] Lymphocytes Abs 0.5(L) 0.9 - 3.2 x10(3)/[facility] Monocyte % 11.4 % [facility] Monocyte Abs 0.4 0.3 - 0.9 x10(3)/[facility] Eos % 5.4 % [facility] Eosinophils Abs 0.2 0.0 - 0.4 x10(3)/[facility] Basophil % 0.3 % [facility] Baso Absolute 0.0 0.0 - 0.1 x10(3)/[facility] Immature Gran % 0.60 % [facility] Comment: Immature granulocytes(IG's)percentage and absolute count will include metamyelocytes, myelocytes, and promyelocytes. Blood smears from CBCs yielding IG's will be scanned manually for concordance. If this scan disagrees with the automated IG or if promyelocytes are noted, a manual differential will be performed. Immature Gran Absolute 0.02 0.00 - 0.04 x10(3)/[facility] Blood specimen (specimen) 05/26/2017 11:19 AM EST 05/26/2017 11:37 AM EST Narrative Resulting Agency Comment Spec In Lab Jax Mills MD HEMATOLOGY ORDERAB LES [facility] [place] [address] * (ABNORMAL) Hemogram (05/26/2017 11:19 AM EST) White Blood Cell 3.5(L) 4.0 - 9.5 x10(3)/[facility] Red Blood Cell 3.13(L) 4.58 - 5.54 x10(6)/[facility] Hemoglobin 8.9(L) 13.7 - 16.5 gm/dL [facility] Hematocrit 29.8(L) 40.5 - 48.5 % [facility] Mean Cell Volume 95.2(H) 82.9 - 93.1 fL [facility] Mean Cell Hemoglobin 28.4 27.5 - 32.1 pg [facility] Mean Cell Hemoglobin Concentration 29.9(L) 32.0 - 35.7 gm/dL [facility] Platelet 246 145 - 357 x10(3)/mc L [facility] RDW Standard Deviation 55.4(H) 36.0 - 45.0 fL [facility] RDW coefficient of variation 16.1(H) 11.4 - 13.8 % [facility] Mean Platelet Volume 9.5 7.6 - 12.9 [facility] NRBC% auto 0.0 % [facility] NRBC Absolute 0.000 0.000 - 0.000 x10(3)/mc L [facility] Blood specimen (specimen) 05/26/2017 11:19 AM EST 05/26/2017 11:37 AM EST Narrative Resulting Agency Comment Spec In Lab Jax Mills MD HEMATOLOGY ORDERAB LES Performing Organization Address City/[facility]/ZIP Co de Phone Number [facility] [place] [address] * Antibody screen (05/26/2017 11:19 AM EST) Ab Screen Interp Negative [facility] Expires at [id number] on: 06/03/2017 [facility] Blood specimen (specimen) 05/26/2017 11:19 AM EST 05/26/2017 11:23 AM EST Narrative Resulting Agency Comment Spec In Lab Jax Mills MD BLOOD BANK LAB ORD ERABLES Performing Organization Address City/[facility]/ZIP Co de Phone Number [facility] [place] [address] * ABO/Rh Typing (05/26/2017 11:19 AM EST) ABORH Type A Pos [facility] Blood specimen (specimen) 05/26/2017 11:19 AM EST 05/26/2017 11:23 AM EST Narrative Resulting Agency Comment Spec In Lab Jax Mills MD BLOOD BANK LAB ORD ERABLES [facility] [place] [address] * (ABNORMAL) Comprehensive metabolic panel (non-fasting) (05/26/2017 11:19 AM EST) Pathologist [facility] Glucose 97 65 - 199 mg/dL [facility] Comment:Diabetes: >=200 mg/d L plus symptoms Blood Urea Nitrogen 36(H) 10 - 20 mg/dL [facility] Creatinine 2.29(H) 0.80 - 1.50 mg/dL [facility] Sodium 148(H) 135 - 145 mmol/L [facility] Potassium 4.1 3.5 - 5.0 mmol/L [facility] Comment: Please note: ??Patients with WBC >100,000 may have falsely elevated Potassium levels. ??For accurate Potassium quantification in these patients send serum separator tube (gold top) for subsequent determinations. ??Contact the Clinical Chemistry Laboratory if there are any questions. Chloride 112(H) 98 - 107 mmol/L [facility] Carbon Dioxide 22 22 - 31 mmol/L [facility] Anion Gap 14 5 - 15 mmol/L [facility] Calcium 8.2(L) 8.5 - 10.5 mg/dL [facility] Protein, Total 5.6(L) 6.1 - 8.0 gm/dL [facility] Albumin 3.5 3.2 - 5.2 gm/dL [facility] Aspartate Aminotransferase 12 0 - 39 unit/L [facility] Alanine Aminotransferase 9 0 - 55 unit/L [facility] Alkaline Phosphatase 103 40 - 120 unit/L [facility] Bilirubin, Total 0.2 0.2 - 1.3 mg/dL [facility] Est Glomerular Filtration Rate 30(L) >=60 [facility] Comment: The reported eGFR should be multiplied by 1.2 for patients. The MDRD is not an appropriate measure of renal function for patients with body mass extremes or in patients with acute kidney failure. http://[email or web address] [email or web address] Blood specimen (specimen) 05/26/2017 11:19 AM EST 05/26/2017 11:37 AM EST Narrative Resulting Agency Comment Spec In Lab Jax Mills MD CHEMISTRY ORDERABL ES [facility] [place] [phone] documented in this encounter Visit Diagnoses Diagnosis Renal mass Unspecified disorder of kidney and ureter documented in this encounter Care Teams Bow Machine Operator Relationship Specialty Start Date End Date Carroll Fuentes DO [address] [place] [address] PCP - General 09/23/11 10/20/22 documented as of this encounter
--- OUTSIDE RECORDS SUMMARY | 2024-05-23 13:33 | XMS_ITS | Encounter Summary ---
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 H/O kidney [place] [address] [facility] [place] [address] Referral ID Status Reason Start Date Expiration Date V isits Requested Visits Authorized [id number] Closed Specialty Service Requested 05/16/2017 05/16/2018 1 1 Reason for Visit * Auth/Cert Specialty Diagnoses / Procedures Referred By Shashi t Referred To Contact Diagnoses TRISTIAN (acute kidney injury) ACUTE ON CHRONIC RENAL FAILURE Procedures emergency IPI Referral ID Status Reason Start Date Expiration Date Visits Re quested Visits Authorized [id number] 1 1 Encounter Details Date Type Department Care Team (Latest Contact Info) Description 05/11/2017 7:05 PM EDT - 05/16/2017 1:45 PM EST Hospital Encounter 3 [place] [id number] [place] [address] [place] [address] [place] [address] TRISTIAN (acute kidney injury); S/P kidney transplant; [...] stage 4, GFR 15-29 ml/min; Prophylactic immunotherapy; FDC current use of immunosuppressive drug; H/O kidney [...] Christy Ambrose Patient Age: 56 y.o. 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 Issues afterhours and on weekends will [...] GFR 15-29 ml/min ??? 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 FDC current use of immunosuppressive drug ??? H/O [...] Had a screening colonoscopy in 02/2017 in [facility] by Dr. Saab (sp?). ?? Denies any [...] BID to help healing. ? # L [place] Renal masses # Weight loss: Given history of ~25lb weight loss over past few weeks without significant change in po intake a CTC/A/P was pursued. While above esophagitis may contribute significantly to weight loss,there was anincidental finding of several [place] L renal masses, largest 5.2 cm concerning [...] dampened peak systolic velocities in??the midpolearcuate arteries [id number]. Allowing for differences in??scale, remainingvelocities and waveforms [...] ?? 05/14/17 -- US Retroperitoneal Echogenic atrophic [place] kidneys. Peripheral to a 2.5??cm left renal [...] follow up with Dr. Hawkins -- call [phone] to confirm. You will have an appointment at 10:00am on WednesdayMay 28. - You will be contacted by your PCP's office for follow up Your Inpatient Doctor(s) at [facility]: Abner Dolan MD General Instructions Warfarin (Coumadin??) [...] INR check is scheduled for: Wednesday05/19/[address] [facility] Fuentes to provide further dosing recommendations based on INR result. ??? It is very important that you have your INR checked regularly as your dose may change based on your lab values. ??? INR goal range: 2.0-3.0 ??? Expected duration of treatment: Indefinite ??? Provider responsible for ongoing outpatient warfarin management: ??? Dr. Carroll Fuentes ??? [place], [place] ? INR taken at [facility] ??? If you have not [...] a diet with a consistent amount of bbavmqf-a-uqupsavsdt foods and avoid major changes in your diet ?? Do not start or stop taking any prescription medications, iawv-zxa-dqbchdp medications, dietary supplements or herbal medications without [...] AM LAB, THREE L Lab 3L [facility] [phone] 05/19/2017 11:20 AM Anup aHwkins MD Transplant at [facility] [phone] Future Orders Complete By Expires Referral to Urology [[id number] Custom] As directed Process Instructions: If no [...] new findings of likely malignancy in left [place] kidney -- would like to have these findings evaluated urgently for therapy. Pending specialist evaluation, I anticipate: Choose One [X] Referral as Co-Management Do not type below here: [id number] Questions: My question or request is: See comment Discharge References/Attachments ELEVATED INR (MOROCCAN) VITAMIN K DIET (MOROCCAN) WARFARIN SAFETY TIPS (MOROCCAN) documented in this encounter Discharge Instructions * Discharge Instructions* Nell Page, [facility] - 05/16/2017 12:18 PM EST [...] INR check is scheduled for: Wednesday05/19/[address] [facility] Fuentes to provide further dosing recommendations based on INR result. ??? It is very important that you have your INR checked regularly as your dose may change based on your lab values. ??? INR goal range: 2.0-3.0 ??? Expected duration of treatment: Indefinite ??? Provider responsible for ongoing outpatient warfarin management: ??? Dr. Carroll Fuentes ??? [place], [place] ? INR taken at [facility] ??? If you have not [...] a diet with a consistent amount of bxbzuub-z-fyibvpvowp foods and avoid major changes in your diet ?? Do not start or stop taking any prescription medications, phgb-dya-jkjhcbd medications, dietary supplements or herbal medications without [...] follow up with Dr. Hawkins -- call [phone] to confirm. You will have an appointment at 10:00am on WednesdayMay 28. - You will be contacted by your PCP's office for follow up Your Inpatient Doctor(s) at [facility]: Abner Dolan MD * Attachments The following attachments cannot be sent through Care Everywhere. * ELEVATED INR (MOROCCAN) * VITAMIN K DIET (MOROCCAN) * WARFARIN SAFETY TIPS (MOROCCAN) documented in this encounter Medications at Time [...] GFR 15-29 ml/min ??? 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 FDC current use of immunosuppressive drug ??? H/O [...] spent >30 minutes (Day of Discharge Code 61617) involved in the final examination of the [...] 12:20 PM EST Cardiac/Telemetry Nursing Progress Note [id number] Subjective: I'm feeling better. Objective: Vital Signs: [...] activity- up to 150's, int. Sinus arrhythmia WY 0.15 QRS 0.13 RR 1.23 QT 0.45 [...] GFR 15-29 ml/min ??? 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 FDC current use of immunosuppressive drug ??? H/O [...] dampened peak systolic velocities in??the midpolearcuate arteries [id number]. Allowing for differences in??scale, remainingvelocities and waveforms [...] fluid. 05/14/17 -- US Retroperitoneal Echogenic atrophic [place] kidneys. Peripheral to a 2.5 cm left [...] large bore IV access ? # L [place] Renal masses - Discussed with urology, will [...] TRISTIAN, and UGIB Team Pager( Coverage 01/02): #[phone] PCP: Carroll Fuentes DO [phone] Attestation: IPI Certification I certify that I am a D-H credentialed attending provider with admitting privileges and that the patient meets or has met medical necessity to require an inpatient IPI level of care meeting a minimumof two midnights or is on the [facility] inpatient only procedure list (status C) due [...] 2:34 AM EDT Cardiac/Telemetry Nursing Progress Note [id number] ?? Subjective: Patient stated feeling well, improving everyday Objective: ?? Vital Signs: See Vital signs below ?? Cardiac Meds: See online MAR ?? Labs: See labs in online chart. ?? Assessment: Denies SOB, CP/N/V. Patient A&O with no complaints. HR 54-120. Plan: Continue telemetry monitoring. Notify MD of any changes. * Selma Torres RN - 05/14/2017 7:45 PM EDT Cardiac/Telemetry Nursing Progress Note [id number] Subjective: No, I don't have any pain. [...] GFR 15-29 ml/min ??? 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 FDC current use of immunosuppressive drug ??? H/O [...] Cr. Also found to have new L [place] renal masses concerning for underlying malignancy. #TRISTIAN [...] 2 large bore IV access ? #L [place] Renal masses #Weight loss: Gives history of [...] negative -Results of colonoscopy from 02/2017 @ [place], [place] by Dr. Michaud obtained: normal colonoscopy [...] TRISTIAN, and UGIB Team Pager( Coverage 01/02): #[phone] PCP: Carroll Fuentes DO [phone] Attestation: IPI Certification I certify that I am a D-H credentialed attending provider with admitting privileges and that the patient meets or has met medical necessity to require an inpatient IPI level of care meeting a minimumof two midnights or is on the [facility] inpatient only procedure list (status C) due [...] PACs, HR up to 130 with activity, WY 0.16, QRS 0.09, RR 1.44, QT 0.38, [...] 7:49 PM EDT Cardiac/Telemetry Nursing Progress Note [id number] Subjective: No, I don't have any pain. [...] GFR 15-29 ml/min ??? 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 FDC current use of immunosuppressive drug ??? H/O [...] CMV -Results of colonoscopy from 02/2017 @ [place], [place] by Dr. Michaud obtained: normal colonoscopy [...] TRISTIAN, and UGIB Team Pager( Coverage 01/02): #[phone] PCP: Carroll Fuentes DO [phone] Attestation: IPI Certification I certify that I [...] [95 %-97 %] Cardiac/Telemetry Nursing Progress Note [id number] Subjective: Pt asymptomatic, denies chest pain, dizziness, nausea, and palpitations. Objective: Vital Signs: See Vital signs below Cardiac Meds: See online MAR Labs: See labs in online chart. Assessment: Pt predominately in sinus rhythm, bradycardic, HR 45-60, tachy into the 120s with activity, rare blocked beats, rare PACs. Pt had 2.8 sec pause. WY 0.18, QRS 0.12, RR 1.16, QT 0.44, [...] GFR 15-29 ml/min ??? 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 FDC current use of immunosuppressive drug ??? H/O [...] and UGIB ?? Team Pager( Coverage 01/02): #[phone] PCP: Carroll Fuentes DO [phone] Attestation: IPI Certification I certify that I am a D-H credentialed attending provider with admitting privileges and that the patient meets or has met medical necessity to require an inpatient IPI level of care meeting a minimumof two midnights or is on the [facility] inpatient only procedure list (status C) due [...] [97 %-100 %] Cardiac/Telemetry Nursing Progress Note [id number] Subjective: Pt denies chest pain, SOB, and palpitations. Intermittent nausea. Objective: Vital Signs: See Vital signs below Cardiac Meds: See online MAR Labs: See labs in online chart. Assessment: Pt bradycardic, SR, Rare PACs, HR 55- 90, WY 0.20, R 1.11, QT 0.44, QTc 0.41 [...] N18.4 ??? 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 intermediate project manager current use of immunosuppressive drug Z79.899 ??? [...] GFR 15-29 ml/min ??? 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 FDC current use of immunosuppressive drug ??? H/O [...] disease ID: 56 y.o. Male presents to [facility] with TRISTIAN History of Present Illness: HPI [...] Had a screening colonoscopy in 02/2017 in [facility] by Dr. Saab (sp?). Denies any recent [...] performed by Miguel Angel Moreno MD at [facility] OR ??? PRO EXC PAROTD, TOTAL, UNILAT RAD NECK Left 02/05/2016 @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, TOTAL, WITH UNILATERAL RADICAL NECK DISSECTION performed by Miguel Angel Moreno MD at [facility] OR ??? PRO EXC SKIN MALIG 3.1-4CM FACE, FACIAL Left 02/05/2016 EXC MALIGNANT LESION, 3.1 TO 4.0CM, FACE performed by Miguel Angel Moreno MD at [facility] OR ? ? PRO EXC SKIN MALIG >4CM TRUNK, ARM, LEG 04/19/2012 EXC MALIGNANT LESION, MICHAEL > 4.0CM, TRUNK performed by SABRINA SANCHEZ at [facility] OR ??? PRO REPAIR INTERMEDIATE S/A/T/E 2.6-7.5 CM 04/19/2012 REPAIR INTERMEDIATE WOUND, (NO HANDS OR FEET) 2.6 TO 7.5CM, UPPER EXTREMITY performed by SABRINA SANCHEZ at [facility] OR ? ? PRO SPLIT GRFT, HEAD, FAC, HAND, FEET <100SQCM N/A 02/20/2016 SPLIT THICKNESS SKIN SPLIT GRAFT,100SQ CM OR LESS, NECK performed by Miguel Angel Moreno MD at [facility] OR ??? PRO VASCULAR SURGERY PROCEDURE UNLIST Left 11/20/2015 LIGATION\REPAIR AV FISTULA performed by Camilo Ireland MD at [facility] OR ??? PRO VASCULAR SURGERY PROCEDURE UNLIST Left 11/20/2015 EXCISION VEIN FROM HAND performed by Camilo Ireland MD at [facility] OR ??? 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 [...] Outcome: Ongoing (Interventions Implemented as Appropriate) 05/15/17 [id number] Coping/Psychosocial Plan Of Care Reviewed With patient [...] EVALUATION: * Consult Note - Nell Page [facility] - 05/15/2017 11:26 AM EDT [...] booklet provided: Yes AVS documentation: In Progress [employer] documents attached to AVS: Vitamin K Diet, Warfarin Thank you very much for the consult. We will continue to dose and monitor warfarin daily. If there is a change in medical condition that warrants discontinuation of warfarin, please discontinue the pharmacy warfarin consult and communicate this to the pharmacy warfarin management service. Pharmacy warfarin management service pager: [phone] NELL PAGE RPH * Plan of Care [...] N18.4 ??? 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 intermediate project manager current use of immunosuppressive drug Z79.899 ??? [...] encounter: 71.3 kg (157 lb 3.2 oz). Devens body weight: 73 kg (160 lb 15 oz) Estimated needs: Calories: 9416-5487 (25-30 kcal/kg) Protein: 85-100 grams (1.2- 1.5 [...] further discussion upon diet advancement. Danette Armas Card Table Attendant * Consult Note - Bhargav Pino RPH [...] booklet provided: Yes AVS documentation: In Progress [employer] documents attached to AVS: Vitamin K Diet, Warfarin Thank you very much for the consult. We will continue to dose and monitor warfarin daily. If there is a change in medical condition that warrants discontinuation of warfarin, please discontinue the pharmacy warfarin consult and communicate this to the pharmacy warfarin management service. Pharmacy warfarin management service pager: [phone] BHARGAV PINO RPH * Plan of Care [...] EVALUATION: * Consult Note - Bhargav Pino, [facility] - 05/13/2017 3:01 PM EDT [...] management service. Pharmacy warfarin management service pager: [phone] BHARGAV PINO RPH * Plan of Care [...] Hepatology Inpatient Consultation Christy Ginna Ambrose 1960 [id number] PCP: Carroll Fuentes DO Date of Admission: [...] ml/min N18.4 ??? 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 FDC current use of immunosuppressive drug Z79.899 ??? [...] performed by Miguel Angel Moreno MD at [facility] OR ??? PRO EXC PAROTD, TOTAL, UNILAT RAD NECK Left 02/05/2016 @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, TOTAL, WITH UNILATERAL RADICAL NECK DISSECTION performed by Miguel Angel Moreno MD at [facility] OR ??? PRO EXC SKIN MALIG 3.1-4CM FACE, FACIAL Left 02/05/2016 EXC MALIGNANT LESION, 3.1 TO 4.0CM, FACE performed by Miguel Angel Moreno MD at [facility] OR ? ? PRO EXC SKIN MALIG >4CM TRUNK, ARM, LEG 04/19/2012 EXC MALIGNANT LESION, MICHAEL > 4.0CM, TRUNK performed by SABRINA SANCHEZ at [facility] OR ??? PRO REPAIR INTERMEDIATE S/A/T/E 2.6-7.5 CM 04/19/2012 REPAIR INTERMEDIATE WOUND, (NO HANDS OR FEET) 2.6 TO 7.5CM, UPPER EXTREMITY performed by SABRINA SANCHEZ at [facility] OR ? ? PRO SPLIT GRFT, HEAD, FAC, HAND, FEET <100SQCM N/A 02/20/2016 SPLIT THICKNESS SKIN SPLIT GRAFT,100SQ CM OR LESS, NECK performed by Miguel Angel Moreno MD at [facility] OR ??? PRO VASCULAR SURGERY PROCEDURE UNLIST Left 11/20/2015 LIGATION\REPAIR AV FISTULA performed by Camilo Ireland MD at [facility] OR ??? PRO VASCULAR SURGERY PROCEDURE UNLIST Left 11/20/2015 EXCISION VEIN FROM HAND performed by Camilo Ireland MD at [facility] OR ??? US RENAL TRANSPLANT [...] total. * Consult Note - Bhargav Pino [facility] - 05/12/2017 1:03 PM EDT [...] management service. Pharmacy warfarin management service pager: [phone] BHARGAV PINO RPH * Consult Note - [...] chair to 2 hour intervals. Use a Glaxstar chair cushion beneath patient at all times while in the chair. Reinforce teaching to shift weight every 15 minutes while in the chair. Wound care will follow weekly. Discussed plan with: RN: Ilda Please contact MEAGHAN HOOD RN on pager [phone] or the wound care team at [phone] or pager [phone] with skin and wound care concerns or [...] [facility]: [facility] Past Medical History: Diagnosis Date ??? BP [...] Coverage: Yes Preferred Pharmacy: [facility] in [facility] Other: n/a Primary Care Provider: Carroll Fuentse DO [phone] Patient/Caregiver Goals of Treatment: Go home once [...] of care planning. Karuna Lawton RN Pager: [phone] * Plan of Care - Mayra Hernandez [...] stage 4, GFR 15-29 ml/min Prophylactic immunotherapy FDC current use of immunosuppressive drug H/O kidney transplant Ordered: 05/16/2017 documented as of this encounter Procedures Procedure Name Priority Date/Time Associated Diagnosis Comments LAB SCAN 05/17/2017 12:00 AM EST FAMILY PRACTICE PHYSICIAN ASSISTANT SCAN 05/17/2017 12:00 AM EST HEMOGRAM Routine [...] SCAN EXT O RDR/RSLT * SCAN DOC: FAMILY PRACTICE PHYSICIAN ASSISTANT (05/17/2017 12:00 AM EST) Anatomical Region Laterality Modality Other Narrative 05/17/2017 12:00 AM EST Ordered by an unspecified provider. Scanning Provider MEDIA MGR SCAN EXT O RDR/RSLT * (ABNORMAL) Differential, Automated (05/16/2017 4:56 AM EST) Neutrophil % 76.5 % [facility] Neutrophil Absolute 2.69 1.70 - 6.10 x10(3)/mc L [facility] Lymph % 9.9 % [facility] Lymphocytes Abs 0.4(L) 0.9 - 3.2 x10(3)/mc L [facility] Monocyte % 10.5 % [facility] Monocyte Abs 0.4 0.3 - 0.9 x10(3)/mc L [facility] Eos % 2.8 % [facility] Eosinophils Abs 0.1 0.0 - 0.4 x10(3)/mc L [facility] Basophil % 0.0 % [facility] Baso Absolute 0.0 0.0 - 0.1 x10(3)/mc L [facility] Immature Gran % 0.30 % [facility] Comment: Immature granulocytes(IG's)percentage and absolute count will include metamyelocytes, myelocytes, and promyelocytes. Blood smears from CBCs yielding IG's will be scanned manually for concordance. If this scan disagrees with the automated IG or if promyelocytes are noted, a manual differential will be performed. Immature Gran Absolute 0.01 0.00 - 0.04 x10(3)/mc L [facility] Blood specimen (specimen) 05/16/2017 4:56 AM EST 05/16/2017 5:28 AM EST Narrative Resulting Agency Comment Spec In Lab Abner Adames MD HEMATOLOGY ORDERABLE S [facility] [place] [address] * (ABNORMAL) Hemogram (05/16/2017 4:56 AM EST) White Blood Cell 3.5(L) 4.0 - 9.5 x10(3)/ L [facility] Red Blood Cell 2.79(L) 4.58 - 5.54 x10(6)/mc L [facility] Hemoglobin 8.4(L) 13.7 - 16.5 gm/dL [facility] Hematocrit 24.3(L) 40.5 - 48.5 % [facility] Mean Cell Volume 87.1 82.9 - 93.[address] [facility] Mean Cell Hemoglobin 30.1 27.5 - 32.[address] [facility] Mean Cell Hemoglobin Concentration 34.6 32.0 - 35.7 gm/dL [facility] Platelet 160 145 - 357 x10(3)/mc L [facility] RDW Standard Deviation 46.2(H) 36.0 - 45.[address] [facility] RDW coefficient of variation 14.6(H) 11.4 - 13.8 % [facility] Mean Platelet Volume 9.9 7.6 - 12.[address] [facility] NRBC% auto 0.0 % [facility] NRBC Absolute 0.000 0.000 - 0.000 x10(3)/mc L [facility] Blood specimen (specimen) 05/16/2017 4:56 AM EST 05/16/2017 5:28 AM EST Narrative Resulting Agency Comment Spec In Lab Abner Adames MD HEMATOLOGY ORDERABLE S Performing Organization Address [facility]/ZIP Co de Phone Number [facility] [place] [address] * Phosphorus (05/16/2017 4:56 AM EST) Phosphorus 2.6 2.5 - 4.5 mg/dL [facility] Blood specimen (specimen) 05/16/2017 4:56 AM EST 05/16/2017 5:28 AM EST Narrative Resulting Agency Comment Spec In Lab Abner Adames MD CHEMISTRY ORDERABLES Performing Organization Address [facility] Co de Phone Number [facility] [place] [address] * (ABNORMAL) Magnesium (05/16/2017 4:56 AM EST) Magnesium 0.58(L) 0.69 - 1.07 mmol/L [facility] Blood specimen (specimen) 05/16/2017 4:56 AM EST 05/16/2017 5:28 AM EST Narrative Resulting Agency Comment Spec In Lab Abner Adames MD CHEMISTRY ORDERABLES Performing Organization Address [facility] Co de Phone Number [facility] [place] [address] * (ABNORMAL) Basic Metabolic Panel (non-fasting) (05/16/2017 4:56 AM EST) Glucose 101 65 - 199 mg/dL [facility] Comment:Diabetes: >=200 mg/d L plus symptoms Blood Urea Nitrogen 32(H) 10 - 20 mg/dL [facility] Creatinine 2.20(H) 0.80 - 1.50 mg/dL [facility] Sodium 139 135 - 145 mmol/L [facility] Potassium 3.7 3.5 - 5.0 mmol/L [facility] Comment: Please note: ??Patients with WBC >100,000 may have falsely elevated Potassium levels. ??For accurate Potassium quantification in these patients send serum separator tube (gold top) for subsequent determinations. ??Contact the Clinical Chemistry Laboratory if there are any questions. Chloride 105 98 - 107 mmol/L [facility] Carbon Dioxide 20(L) 22 - 31 mmol/L [facility] Anion Gap 14 5 - 15 mmol/L [facility] Calcium 7.5(L) 8.5 - 10.5 mg/dL [facility] Est Glomerular Filtration Rate 31(L) >=60 [facility] Comment: The reported eGFR should be multiplied by 1.2 for patients. The MDRD is not an appropriate measure of renal function for patients with body mass extremes or in patients with acute kidney failure. http://Arkadium/DHnkdep http://Arkadium/DHMCnkf Blood specimen (specimen) 05/16/2017 4:56 AM EST 05/16/2017 5:28 AM EST Narrative Resulting Agency Comment Spec In Lab Abner Adames MD CHEMISTRY ORDERABLES [facility] [place] [address] * (ABNORMAL) Prothrombin Time (05/16/2017 4:56 AM EST) Prothrombin Time 14.2(H) 11.8 - 14.[address] [facility] International Normalization Ratio 1.1 0.9 - 1.1 [facility] Comment: An INR [...] MD HEMATOLOGY ORDERABL ES Performing Organization Address [facility] Co de Phone Number [facility] [place] [address] * (ABNORMAL) Hepatic Function Panel (05/15/2017 8:44 AM EDT) [facility] Protein, Total 5.0(L) 6.1 - 8.0 gm/dL [facility] Albumin 3.0(L) 3.2 - 5.2 gm/dL [facility] Aspartate Aminotransferase 12 0 - 39 unit/L [facility] Alanine Aminotransferase 10 0 - 55 unit/L [facility] Alkaline Phosphatase 103 40 - 120 unit/L [facility] Bilirubin, Total 0.6 0.2 - 1.3 mg/dL [facility] Bilirubin, Direct 0.2 0.0 - 0.3 mg/dL [facility] Blood specimen (specimen) Venous Draw / Unknown 05/15/2017 8:44 AM EDT 05/15/2017 8:53 AM EDT Narrative Resulting Agency Comment Spec In Lab Jesenia Dolan MD CHEMISTRY ORDERABLE S Performing Organization Address [facility] [facility] Co de Phone Number [facility] [place] [address] * (ABNORMAL) Differential, Automated (05/15/2017 8:44 AM EDT) [facility] Neutrophil % 67.0 % [facility] Neutrophil Absolute 2.04 1.70 - 6.10 x10(3)/mc L [facility] Lymph % 15.7 % [facility] Lymphocytes Abs 0.5(L) 0.9 - 3.2 x10(3)/[facility] Monocyte % 12.1 % [facility] Monocyte Abs 0.4 0.3 - 0.9 x10(3)/[facility] Eos % 4.9 % [facility] Eosinophils Abs 0.2 0.0 - 0.4 x10(3)/[facility] Basophil % 0.0 % [facility] Baso Absolute 0.0 0.0 - 0.1 x10(3)/[facility]ORY Immature Gran % 0.30 % [facility] Comment: Immature granulocytes(IG's)percentage and absolute count will include metamyelocytes, myelocytes, and promyelocytes. Blood smears from CBCs yielding IG's will be scanned manually for concordance. If this scan disagrees with the automated IG or if promyelocytes are noted, a manual differential will be performed. Immature Gran Absolute 0.01 0.00 - 0.04 x10(3)/[facility] Blood specimen (specimen) 05/15/2017 8:44 AM EDT 05/15/2017 8:52 AM EDT Narrative Resulting Agency Comment Spec In Lab Jesenia Dolan MD HEMATOLOGY ORDERABL ES [facility] [place] [address] * (ABNORMAL) Hemogram (05/15/2017 8:44 AM EDT) White Blood Cell 3.0(L) 4.0 - 9.5 x10(3)/[facility] LAB[facility]ATORY Red Blood Cell 2.92(L) 4.58 - 5.54 x10(6)/[facility]ORY Hemoglobin 8.8(L) 13.7 - 16.5 gm/dL [facility] Hematocrit 24.9(L) 40.5 - 48.5 % [facility] Mean Cell Volume 85.3 82.9 - 93.[address] [facility] Mean Cell Hemoglobin 30.1 27.5 - 32.[address] [facility] Mean Cell Hemoglobin Concentration 35.3 32.0 - 35.7 gm/dL [facility] Platelet 167 145 - 357 x10(3)/mc L [facility] RDW Standard Deviation 45.6(H) 36.0 - 45.[address] [facility] RDW coefficient of variation 14.8(H) 11.4 - 13.8 % [facility] Mean Platelet Volume 9.7 7.6 - 12.[address] [facility] NRBC% auto 0.0 % [facility] NRBC Absolute 0.000 0.000 - 0.000 x10(3)/mc L [facility] Blood specimen (specimen) 05/15/2017 8:44 AM EDT 05/15/2017 8:52 AM EDT Narrative Resulting Agency Comment Spec In Lab Jesenia Dolan MD HEMATOLOGY ORDERABL ES [facility] [place] [address] * (ABNORMAL) Prothrombin Time (05/15/2017 8:44 AM EDT) Prothrombin Time 14.7(H) 11.8 - 14.[address] [facility] International Normalization Ratio 1.2(H) 0.9 - 1.1 [facility] Comment: An INR [...] MD HEMATOLOGY ORDERABL ES Performing Organization Address City/[facility]/ZIP Co de Phone Number [facility] [place] [address] * Magnesium (05/15/2017 8:44 AM EDT) [facility] Magnesium 0.72 0.69 - 1.07 mmol/L [facility] Blood specimen (specimen) 05/15/2017 8:44 AM EDT 05/15/2017 8:52 AM EDT Narrative Resulting Agency Comment Spec In Lab Jesenia Dolan MD CHEMISTRY ORDERABLE S Performing Organization Address [facility] Co de Phone Number [facility] [place] [address] * (ABNORMAL) Basic Metabolic Panel (non-fasting) (05/15/2017 8:44 AM EDT) [facility] Glucose 120 65 - 199 mg/dL [facility] Comment:Diabetes: >=200 mg/d L plus symptoms Blood Urea Nitrogen 37(H) 10 - 20 mg/dL [facility] Creatinine 2.52(H) 0.80 - 1.50 mg/dL [facility] Sodium 140 135 - 145 mmol/L [facility] Potassium 3.6 3.5 - 5.0 mmol/L [facility] Comment: Please note: ??Patients with WBC >100,000 may have falsely elevated Potassium levels. ??For accurate Potassium quantification in these patients send serum separator tube (gold top) for subsequent determinations. ??Contact the Clinical Chemistry Laboratory if there are any questions. Chloride 108(H) 98 - 107 mmol/L [facility] Carbon Dioxide 18(L) 22 - 31 mmol/L [facility] Anion Gap 14 5 - 15 mmol/L [facility] Calcium 7.6(L) 8.5 - 10.5 mg/dL [facility] Est Glomerular Filtration Rate 27(L) >=60 [facility] Comment: The reported eGFR should be multiplied by 1.2 for patients. The MDRD is not an appropriate measure of renal function for patients with body mass extremes or in patients with acute kidney failure. http://Arkadium/DHnkdep http://Arkadium/DHMCnkf Blood specimen (specimen) 05/15/2017 8:44 AM EDT 05/15/2017 8:52 AM EDT Narrative Resulting Agency Comment Spec In Lab Jesenia Dolan MD CHEMISTRY ORDERABLE S [facility] [place] [address] * (ABNORMAL) Differential, Automated (05/14/2017 6:26 PM EDT) Neutrophil % 63.6 % [facility] Neutrophil Absolute 1.85 1.70 - 6.10 x10(3)/mc L [facility] Lymph % 18.9 % [facility] Lymphocytes Abs 0.6(L) 0.9 - 3.2 x10(3)/mc L [facility] Monocyte % 13.1 % [facility] Monocyte Abs 0.4 0.3 - 0.9 x10(3)/mc L [facility] Eos % 3.8 % [facility] Eosinophils Abs 0.1 0.0 - 0.4 x10(3)/mc L [facility] Basophil % 0.3 % [facility] Baso Absolute 0.0 0.0 - 0.1 x10(3)/mc L [facility] Immature Gran % 0.30 % [facility] Comment: Immature granulocytes(IG's)percentage and absolute count will include metamyelocytes, myelocytes, and promyelocytes. Blood smears from CBCs yielding IG's will be scanned manually for concordance. If this scan disagrees with the automated IG or if promyelocytes are noted, a manual differential will be performed. Immature Gran Absolute 0.01 0.00 - 0.04 x10(3)/ L [facility] Blood specimen (specimen) 05/14/2017 6:26 PM EDT 05/14/2017 6:40 PM EDT Narrative Resulting Agency Comment Spec In Lab Jesenia Dolan MD HEMATOLOGY ORDERABL ES [facility] [place] [address] * (ABNORMAL) Hemogram (05/14/2017 6:26 PM EDT) White Blood Cell 2.9(L) 4.0 - 9.5 x10(3)/[facility] LABORATORY Red Blood Cell 2.76(L) 4.58 - 5.54 x10(6)/[facility]ORY Hemoglobin 8.0(L) 13.7 - 16.5 gm/dL [facility] Hematocrit 23.6(L) 40.5 - 48.5 % [facility] Mean Cell Volume 85.5 82.9 - 93.1 [facility]ORATORY Mean Cell Hemoglobin 29.0 27.5 - 32.[address] [facility] Mean Cell Hemoglobin Concentration 33.9 32.0 - 35.7 gm/dL [facility] Platelet 172 145 - 357 x10(3)/[facility]ORY RDW Standard Deviation 45.6(H) 36.0 - 45.0 [facility] LABORATORY RDW coefficient of variation 15.1(H) 11.4 - 13.8 % [facility] Mean Platelet Volume 10.3 7.6 - 12.9 [facility] LABORATORY NRBC% auto 0.0 % [facility] NRBC Absolute 0.000 0.000 - 0.000 x10(3)/[facility] Blood specimen (specimen) 05/14/2017 6:26 PM EDT 05/14/2017 6:40 PM EDT Narrative Resulting Agency Comment Spec In Lab Jesenia Dolan MD HEMATOLOGY ORDERABL ES [facility] [place] [address] * (ABNORMAL) Basic Metabolic Panel (non-fasting) (05/14/2017 6:26 PM EDT) Glucose 112 65 - 199 mg/dL [facility] Comment:Diabetes: >=200 mg/d L plus symptoms Blood Urea Nitrogen 44(H) 10 - 20 mg/dL [facility] Creatinine 2.70(H) 0.80 - 1.50 mg/dL [facility] Sodium 139 135 - 145 mmol/L [facility] Potassium 3.3(L) 3.5 - 5.0 mmol/L [facility] Comment: Please note: ??Patients with WBC >100,000 may have falsely elevated Potassium levels. ??For accurate Potassium quantification in these patients send serum separator tube (gold top) for subsequent determinations. ??Contact the Clinical Chemistry Laboratory if there are any questions. Chloride 109(H) 98 - 107 mmol/L [facility] Carbon Dioxide 17(L) 22 - 31 mmol/L [facility] Anion Gap 13 5 - 15 mmol/L [facility] Calcium 7.4(L) 8.5 - 10.5 mg/dL [facility] Est Glomerular Filtration Rate 25(L) >=60 [facility] Comment: The reported eGFR should be multiplied by 1.2 for patients. The MDRD is not an appropriate measure of renal function for patients with body mass extremes or in patients with acute kidney failure. http://[email or web address].Cue/DHnkdep http://Arkadium/DHMCnkf Blood specimen (specimen) 05/14/2017 6:26 PM EDT 05/14/2017 6:40 PM EDT Narrative Resulting Agency Comment Spec In Lab Jesenia Dolan MD CHEMISTRY ORDERABLE S [facility] [place] [address] * US Retroperitoneal Complete (05/14/2017 3:35 PM EDT) Anatomical Region Laterality Modality Abdomen Ultrasound 05/14/2017 3:31 PM EDT Impressions 05/14/2017 4:51 PM EDT ??Echogenic atrophic [place] kidneys. Peripheral to a 2.5 cm left renal cyst are dual heterogeneous solid renal massesone of which shows trace peripheral flow in one of its shows small central flow.These are concerning for malignancy. ?Devi Hdez MD Electronically Signed Final Report ?? 05/14/2017 04:51 pm Narrative 05/14/2017 4:51 PM EDT Renal ? (Signed Final 05/14/2017 04:51 pm) PATIENT INFO: ID #: ? [id number] ?: ??[birth year] (56 yrs) Name: ? CHRISTY AMBROSE ?Visit Date: 05/14/2017 03:31 pm PERFORMED BY: Performed By: ? Brianna Becker RDMS Attending: ?Lemuel JONES, Devi Adams Referred By: ?JESENIA DOLAN Location: ? [facility] SERVICE(S) PROVIDED: ??URETRO - Retroperitoneal Complete - [id number] ? [id number] INDICATIONS: ??Evaluate L renal mass, ? malignancy [...] 05/14/2017 04:51 pm) PATIENT INFO: ID #: [id number] : [birth year] (56 yrs) Name: CHRISTY AMBROSE Visit Date: 05/14/2017 03:31 pm PERFORMED BY: Performed By: Brianna Becker RDMS Attending: Devi Hdez MD Referred By: JESENIA DOLAN Location: [facility] SERVICE(S) PROVIDED: URETRO - Retroperitoneal Complete - [id number] INDICATIONS: Evaluate L renal mass, ? malignancy [...] Partially distended, normal contour IMPRESSION Echogenic atrophic [place] kidneys. Peripheral to a 2.5 cm left [...] dilatation. Spleen: Normal. Adrenals: Normal. Kidneys: The [place] kidneys are severely atrophied. There are 3 well-circumscribed lesions projecting from the upper pole of the [place] left kidney. The smallest measures 2.0 cm [...] dilatation. Spleen: Normal. Adrenals: Normal. Kidneys: The [place] kidneys are severely atrophied. There are 3 [...] 6:09 AM EDT) Lyme Antibody Neg Neg [facility] Blood specimen (specimen) 05/14/2017 6:09 AM EDT 05/15/2017 12:19 PM EDT Narrative Resulting Agency Comment Spec In Lab Jesenia Dolan MD IMMUNOLOGY ORDERABL ES [facility] [place] [address] * (ABNORMAL) Magnesium (05/14/2017 6:08 AM EDT) Magnesium 0.65(L) 0.69 - 1.07 mmol/L [facility] Blood specimen (specimen) Venous Draw / Unknown 05/14/2017 6:08 AM EDT 05/14/2017 6:39 AM EDT Narrative Resulting Agency Comment Spec In Lab Jesenia Dolan MD CHEMISTRY ORDERABLE S [facility] [place] [address] * (ABNORMAL) Differential, Automated (05/14/2017 6:08 AM EDT) Neutrophil % 66.5 % [facility] Neutrophil Absolute 2.20 1.70 - 6.10 x10(3)/mc L [facility] Lymph % 15.1 % [facility] Lymphocytes Abs 0.5(L) 0.9 - 3.2 x10(3)/mc L [facility] Monocyte % 14.5 % [facility] Monocyte Abs 0.5 0.3 - 0.9 x10(3)/ L [facility] Eos % 3.3 % [facility] Eosinophils Abs 0.1 0.0 - 0.4 x10(3)/ L [facility] Basophil % 0.3 % [facility] Baso Absolute 0.0 0.0 - 0.1 x10(3)/mc L [facility] Immature Gran % 0.30 % [facility] Comment: Immature granulocytes(IG's)percentage and absolute count will include metamyelocytes, myelocytes, and promyelocytes. Blood smears from CBCs yielding IG's will be scanned manually for concordance. If this scan disagrees with the automated IG or if promyelocytes are noted, a manual differential will be performed. Immature Gran Absolute 0.01 0.00 - 0.04 x10(3)/mc L [facility] Blood specimen (specimen) 05/14/2017 6:08 AM EDT 05/14/2017 6:36 AM EDT Narrative Resulting Agency Comment Spec In Lab Jesenia Dolan MD HEMATOLOGY ORDERABL ES Performing Organization Address City/[facility]/ZIP Co de Phone Number [facility] [place] [address] * (ABNORMAL) Hemogram (05/14/2017 6:08 AM EDT) White Blood Cell 3.3(L) 4.0 - 9.5 x10(3)/ L [facility] Red Blood Cell 2.74(L) 4.58 - 5.54 x10(6)/mc L [facility] Hemoglobin 8.2(L) 13.7 - 16.5 gm/dL [facility] Hematocrit 23.2(L) 40.5 - 48.5 % [facility] Mean Cell Volume 84.7 82.9 - 93.[address] [facility] Mean Cell Hemoglobin 29.9 27.5 - 32.[address] [facility] Mean Cell Hemoglobin Concentration 35.3 32.0 - 35.7 gm/dL [facility] Platelet 158 145 - 357 x10(3)/mc L [facility] RDW Standard Deviation 45.8(H) 36.0 - 45.[address] [facility] RDW coefficient of variation 15.0(H) 11.4 - 13.8 % [facility] Mean Platelet Volume 9.9 7.6 - 12.[address] [facility] NRBC% auto 0.0 % [facility] NRBC Absolute 0.000 0.000 - 0.000 x10(3)/ L [facility] Blood specimen (specimen) 05/14/2017 6:08 AM EDT 05/14/2017 6:36 AM EDT Narrative Resulting Agency Comment Spec In Lab Jesenia Dolan MD HEMATOLOGY ORDERABL ES Performing Organization Address City/[facility]/ZIP Co de Phone Number [facility] [place] [address] * (ABNORMAL) Prothrombin Time (05/14/2017 6:08 AM EDT) Prothrombin Time 16.1(H) 11.8 - 14.[address] [facility] International Normalization Ratio 1.3(H) 0.9 - 1.1 [facility] Comment: An INR [...] Lab Jesenia Dolan MD HEMATOLOGY ORDERABL ES [facility] [place] [address] * (ABNORMAL) Basic Metabolic Panel (non-fasting) (05/14/2017 6:08 AM EDT) Glucose 123 65 - 199 mg/dL [facility] Comment:Diabetes: >=200 mg/d L plus symptoms Blood Urea Nitrogen 54(H) 10 - 20 mg/dL [facility] Creatinine 3.14(H) 0.80 - 1.50 mg/dL [facility] Sodium 143 135 - 145 mmol/L [facility] Potassium 2.9(Criti constance) 3.5 - 5.0 mmol/L [facility] Comment: Results rechecked. Called by: WILLIAM, Read back by: Selma Torres, Date/Time:05/14/17 07:39. Please note: ??Patients with WBC >100,000 may have falsely elevated Potassium levels. ??For accurate Potassium quantification in these patients send serum separator tube (gold top) for subsequent determinations. ??Contact the Clinical Chemistry Laboratory if there are any questions. Chloride 110(H) 98 - 107 mmol/L [facility] Carbon Dioxide 17(L) 22 - 31 mmol/L [facility] Anion Gap 16(H) 5 - 15 mmol/L [facility] Calcium 7.4(L) 8.5 - 10.5 mg/dL [facility] Est Glomerular Filtration Rate 21(L) >=60 [facility] Comment: The reported eGFR should be multiplied by 1.2 for patients. The MDRD is not an appropriate measure of renal function for patients with body mass extremes or in patients with acute kidney failure. http://Arkadium/DHnkdep http://Arkadium/DHMCnkf Blood specimen (specimen) 05/14/2017 6:08 AM EDT 05/14/2017 6:36 AM EDT Narrative Resulting Agency Comment Spec In Lab Jesenia Dolan MD CHEMISTRY ORDERABLE S Performing Organization Address City/State/[facility] Co de Phone Number [facility] [place] [address] * (ABNORMAL) Differential, Automated (05/13/2017 8:26 PM EDT) Neutrophil % 72.2 % [facility] Neutrophil Absolute 2.57 1.70 - 6.10 x10(3)/mc L [facility] Lymph % 11.2 % [facility] Lymphocytes Abs 0.4(L) 0.9 - 3.2 x10(3)/mc L [facility] Monocyte % 14.6 % [facility] Monocyte Abs 0.5 0.3 - 0.9 x10(3)/mc L [facility] Eos % 1.4 % [facility] Eosinophils Abs 0.0 0.0 - 0.4 x10(3)/mc L [facility] Basophil % 0.3 % [facility] Baso Absolute 0.0 0.0 - 0.1 x10(3)/mc L [facility] Immature Gran % 0.30 % [facility] Comment: Immature granulocytes(IG's)percentage and absolute count will include metamyelocytes, myelocytes, and promyelocytes. Blood smears from CBCs yielding IG's will be scanned manually for concordance. If this scan disagrees with the automated IG or if promyelocytes are noted, a manual differential will be performed. Immature Gran Absolute 0.01 0.00 - 0.04 x10(3)/mc L [facility] Blood specimen (specimen) 05/13/2017 8:26 PM EDT 05/13/2017 8:35 PM EDT Narrative Resulting Agency Comment Spec In Lab Jesenia Dolan MD HEMATOLOGY ORDERABL ES [facility] [place] [address] * (ABNORMAL) Hemogram (05/13/2017 8:26 PM EDT) White Blood Cell 3.6(L) 4.0 - 9.5 x10(3)/ L [facility] Red Blood Cell 3.01(L) 4.58 - 5.54 x10(6)/mc L [facility] Hemoglobin 8.9(L) 13.7 - 16.5 gm/dL [facility] Hematocrit 25.7(L) 40.5 - 48.5 % [facility] Mean Cell Volume 85.4 82.9 - 93.[address] [facility] Mean Cell Hemoglobin 29.6 27.5 - 32.[address] [facility] Mean Cell Hemoglobin Concentration 34.6 32.0 - 35.7 gm/dL [facility] Platelet 168 145 - 357 x10(3)/ L [facility] RDW Standard Deviation 47.4(H) 36.0 - 45.[address] [facility] RDW coefficient of variation 15.3(H) 11.4 - 13.8 % [facility] Mean Platelet Volume 9.9 7.6 - 12.[address] [facility] NRBC% auto 0.0 % [facility] NRBC Absolute 0.000 0.000 - 0.000 x10(3)/mc L [facility] Blood specimen (specimen) 05/13/2017 8:26 PM EDT 05/13/2017 8:35 PM EDT Narrative Resulting Agency Comment Spec In Lab Jesenia Dolan MD HEMATOLOGY ORDERABL ES Performing Organization Address [facility] de Phone Number [facility] [place] [address] * Tacrolimus level (05/13/2017 8:26 PM EDT) Tacrolimus <3.0 ng/mL [facility] Comment: Trough therapeutic: ??5-15 ng/mL Performed by ultra-performance liquid chromatography tandem mass spectrometry (UPLCMS/MS). This test was developed and its performance characteristics determined by [facility]. It has not been [...] MD CHEMISTRY ORDERABLE S Performing Organization Address [facility] Co de Phone Number [facility] [place] [address] * Cytomegalovirus Culture Esophagus (05/13/2017 6:27 PM EDT) Cytomegalovirus Culture No Cytomegalovirus isolated in cell culture [facility] Specimen from esophagus (specimen) 05/13/2017 6:27 PM EDT 05/13/2017 7:16 PM EDT Comment:EGD ESOPHAGEAL BIOPS IES, HX OF IMMUNOSUPPRESSION Narrative Resulting Agency Comment Spec In Lab Aditya Barrera MD MICROBIOLOGY - GENER AL ORDERABLES Performing Organization Address [facility] Co de Phone Number [facility] [place] [address] * Surgical Pathology Report (05/13/2017 5:55 PM EDT) Final Diagnosis [id number] ? Location: 3EST; 0330; A The signing pathologist has (i) examined the relevant preparation(s) for the specimen(s) and (ii) rendered or confirmed the diagnosis(es). . ?Surgical Pathology DIAGNOSIS Esophagus, ??biopsy: Reactive esophageal-gastric junctional mucosa ?with intestinal metaplasia ??(negative for dysplasia) and fibrinopurulent debris containing scattered bacteria. See discussion #1. Electronically signed by: ??Kristine JONES PhD, Edgar Chacko Verified: ??05/18/2017 ?Pathologist Performed at: ??-[facility] [place], [place], [place] DISCUSSION 1. The findings are consistent with mckenna ?? 's esophagus in the proper clinical context. ??Special stain for fungi (GMS) is negative. CLINICAL INFORMATION Specimen Submitted: A - Biopsy esophagus Clinical History: v SPECIMEN PROCESSING A - Labeled/Fixative: Biopsy esophagus, formalin. Quantity/Size: Fragments, 0.3-0.4 cm. Tissue Description: Soft, smith-pink tissue. Sections/Processin g: (T1) ??pps 05/18/2017 2:[address] [facility] GI Biopsy 05/13/2017 5:55 PM EDT 05/13/2017 5:55 PM EDT Aditya Barrera MD PATHOLOGY/CYTOLOGY O RDERABLES Performing Organization Address [facility]/ZIP Co de Phone Number [facility] [place] [address] * Specimen to Pathology (surgical or derm) (05/13/2017 5:55 PM EDT) AP Specimen 05/13/2017 5:55 PM EDT 05/13/2017 5:[address] [facility] - 05/13/2017 5:55 PM EDT Specimen requisition ordered. ??Separate Pathology report to follow Jesenia Dolan MD PATHOLOGY/CYTOLOGY ORDERABLES Performing Organization Address City/[facility]/[place] [address] * (ABNORMAL) Magnesium (05/13/2017 1:44 PM EDT) [facility] Magnesium 0.59(L) 0.69 - 1.07 mmol/L [facility] Blood specimen (specimen) Venous Draw / Unknown 05/13/2017 1:44 PM EDT 05/13/2017 2:13 PM EDT Narrative Resulting Agency Comment Spec In Lab Jesenia Dolan MD CHEMISTRY ORDERABLE S Performing Organization Address [facility]/[place] [address] * (ABNORMAL) Differential, Automated (05/13/2017 1:44 PM EDT) [facility] Neutrophil % 67.5 % [facility] Neutrophil Absolute 2.07 1.70 - 6.10 x10(3)/mc L [facility] Lymph % 15.0 % [facility] Lymphocytes Abs 0.5(L) 0.9 - 3.2 x10(3)/mc L [facility] Monocyte % 15.3 % [facility] Monocyte Abs 0.5 0.3 - 0.9 x10(3)/mc L [facility] Eos % 1.6 % [facility] Eosinophils Abs 0.0 0.0 - 0.4 x10(3)/mc L [facility] Basophil % 0.3 % [facility] Baso Absolute 0.0 0.0 - 0.1 x10(3)/[facility] Immature Gran % 0.30 % [facility] Comment: Immature granulocytes(IG's)percentage and absolute count will include metamyelocytes, myelocytes, and promyelocytes. Blood smears from CBCs yielding IG's will be scanned manually for concordance. If this scan disagrees with the automated IG or if promyelocytes are noted, a manual differential will be performed. Immature Gran Absolute 0.01 0.00 - 0.04 x10(3)/[facility] LABORATORY Blood specimen (specimen) 05/13/2017 1:44 PM EDT 05/13/2017 1:56 PM EDT Narrative Resulting Agency Comment Spec In Lab Jesenia Dolan MD HEMATOLOGY ORDERABL ES Performing Organization Address City/State/[facility] Co de Phone Number [facility] [place] [address] * (ABNORMAL) Hemogram (05/13/2017 1:44 PM EDT) White Blood Cell 3.1(L) 4.0 - 9.5 x10(3)/[facility] LABORATORY Red Blood Cell 2.83(L) 4.58 - 5.54 x10(6)/[facility] LABORATORY Hemoglobin 8.3(L) 13.7 - 16.5 gm/dL [facility] Hematocrit 24.2(L) 40.5 - 48.5 % [facility] Mean Cell Volume 85.5 82.9 - 93.[address] [facility] Mean Cell Hemoglobin 29.3 27.5 - 32.[address] [facility] Mean Cell Hemoglobin Concentration 34.3 32.0 - 35.7 gm/dL [facility] Platelet 165 145 - 357 x10(3)/[facility] LABORATORY RDW Standard Deviation 46.0(H) 36.0 - 45.[address] [facility] RDW coefficient of variation 14.8(H) 11.4 - 13.8 % [facility] Mean Platelet Volume 9.6 7.6 - 12.[address] [facility] NRBC% auto 0.0 % [facility] NRBC Absolute 0.000 0.000 - 0.000 x10(3)/mc L [facility] Blood specimen (specimen) 05/13/2017 1:44 PM EDT 05/13/2017 1:56 PM EDT Narrative Resulting Agency Comment Spec In Lab Jesenia Dolan MD HEMATOLOGY ORDERABL ES [facility] [place] [address] * (ABNORMAL) Basic Metabolic Panel (non-fasting) (05/13/2017 1:44 PM EDT) Glucose 117 65 - 199 mg/dL [facility] Comment:Diabetes: >=200 mg/d L plus symptoms Blood Urea Nitrogen 64(H) 10 - 20 mg/dL [facility] Creatinine 3.56(H) 0.80 - 1.50 mg/dL [facility] Sodium 145 135 - 145 mmol/L [facility] Potassium 3.5 3.5 - 5.0 mmol/L [facility] Comment: Please note: ??Patients with WBC >100,000 may have falsely elevated Potassium levels. ??For accurate Potassium quantification in these patients send serum separator tube (gold top) for subsequent determinations. ??Contact the Clinical Chemistry Laboratory if there are any questions. Chloride 115(H) 98 - 107 mmol/L [facility] Carbon Dioxide 15(L) 22 - 31 mmol/L [facility] Anion Gap 15 5 - 15 mmol/L [facility] Calcium 7.9(L) 8.5 - 10.5 mg/dL [facility] Est Glomerular Filtration Rate 18(L) >=60 [facility]ORATORY Comment: The reported eGFR should be multiplied by 1.2 for patients. The MDRD is not an appropriate measure of renal function for patients with body mass extremes or in patients with acute kidney failure. [email or web address] [email or web address] Blood specimen (specimen) 05/13/2017 1:44 PM EDT 05/13/2017 1:56 PM EDT Narrative Resulting Agency Comment Spec In Lab Jesenia Dolan MD CHEMISTRY ORDERABLE S Performing Organization Address [facility] Co de Phone Number [facility] [place] [address] * Tacrolimus level (05/13/2017 6:00 AM EDT) Tacrolimus <3.0 ng/mL [facility] Comment: Trough therapeutic: ??5-15 ng/mL Performed by ultra-performance liquid chromatography tandem mass spectrometry (UPLCMS/MS). This test was developed and its performance characteristics determined by [facility]. It has not been cleared or [...] MD CHEMISTRY ORDERABLE S Performing Organization Address [facility] Co de Phone Number [facility] [place] [address] * (ABNORMAL) Magnesium (05/13/2017 6:00 AM EDT) Magnesium 0.65(L) 0.69 - 1.07 mmol/L [facility] Blood specimen (specimen) Venous Draw / Unknown 05/13/2017 6:00 AM EDT 05/13/2017 7:09 AM EDT Narrative Resulting Agency Comment Spec In Lab Jesenia Dolan MD CHEMISTRY ORDERABLE S Performing Organization Address City/State/[facility] Co de Phone Number [facility] [place] [address] * (ABNORMAL) Differential, Automated (05/13/2017 6:00 AM EDT) Neutrophil % 59.7 % [facility] Neutrophil Absolute 1.73 1.70 - 6.10 x10(3)/mc L [facility] Lymph % 19.7 % [facility] Lymphocytes Abs 0.6(L) 0.9 - 3.2 x10(3)/mc L [facility] Monocyte % 16.6 % [facility] Monocyte Abs 0.5 0.3 - 0.9 x10(3)/mc L [facility] Eos % 3.4 % [facility] Eosinophils Abs 0.1 0.0 - 0.4 x10(3)/mc L [facility] Basophil % 0.3 % [facility] Baso Absolute 0.0 0.0 - 0.1 x10(3)/mc L [facility] Immature Gran % 0.30 % [facility] Comment: Immature granulocytes(IG's)percentage and absolute count will include metamyelocytes, myelocytes, and promyelocytes. Blood smears from CBCs yielding IG's will be scanned manually for concordance. If this scan disagrees with the automated IG or if promyelocytes are noted, a manual differential will be performed. Immature Gran Absolute 0.01 0.00 - 0.04 x10(3)/mc L [facility] Blood specimen (specimen) 05/13/2017 6:00 AM EDT 05/13/2017 6:20 AM EDT Narrative Resulting Agency Comment Spec In Lab Jesenia Dolan MD HEMATOLOGY ORDERABL ES Performing Organization Address City/[facility]/ZIP Co de Phone Number [facility] [place] [address] * (ABNORMAL) Hemogram (05/13/2017 6:00 AM EDT) White Blood Cell 2.9(L) 4.0 - 9.5 x10(3)/ L [facility] Red Blood Cell 2.76(L) 4.58 - 5.54 x10(6)/ L [facility] Hemoglobin 8.2(L) 13.7 - 16.5 gm/dL [facility] Hematocrit 23.3(L) 40.5 - 48.5 % [facility] Mean Cell Volume 84.4 82.9 - 93.[address] [facility] Mean Cell Hemoglobin 29.7 27.5 - 32.[address] [facility] Mean Cell Hemoglobin Concentration 35.2 32.0 - 35.7 gm/dL [facility] Platelet 179 145 - 357 x10(3)/ L [facility] RDW Standard Deviation 45.3(H) 36.0 - 45.[address] [facility] RDW coefficient of variation 15.0(H) 11.4 - 13.8 % [facility] Mean Platelet Volume 10.1 7.6 - 12.[address] [facility] NRBC% auto 0.0 % [facility] NRBC Absolute 0.000 0.000 - 0.000 x10(3)/ L [facility] Blood specimen (specimen) 05/13/2017 6:00 AM EDT 05/13/2017 6:20 AM EDT Narrative Resulting Agency Comment Spec In Lab Jesenia Dolan MD HEMATOLOGY ORDERABL ES Performing Organization Address City/[facility]/ZIP Co de Phone Number [facility] [place] [address] * CMV Antibody, IgM (05/13/2017 6:00 AM EDT) CMV IgM Negative Negative [facility] Blood specimen (specimen) 05/13/2017 6:00 AM EDT 05/13/2017 6:19 AM EDT Narrative Resulting Agency Comment Spec In Lab Anup Hawkins MD IMMUNOLOGY ORDERA BLES Performing Organization Address [facility] Co de Phone Number [facility] [place] [address] * CMV Antibody, IgG (05/13/2017 6:00 AM EDT) CMV IgG Negative Negative [facility] Blood specimen (specimen) 05/13/2017 6:00 AM EDT 05/13/2017 6:19 AM EDT Narrative Resulting Agency Comment Spec In Lab Anup Hawkins MD IMMUNOLOGY ORDERA BLES Performing Organization Address [facility] de Phone Number [facility] [place] [address] * (ABNORMAL) Prothrombin Time (05/13/2017 6:00 AM EDT) Prothrombin Time 17.9(H) 11.8 - 14.[address] [facility] Comment: An INR [...] International Normalization Ratio 1.5(H) 0.9 - 1.1 [facility] Blood specimen (specimen) 05/13/2017 6:00 AM EDT 05/13/2017 6:19 AM EDT Narrative Resulting Agency Comment Spec In Lab Jesenia Dolan MD HEMATOLOGY ORDERABL ES Performing Organization Address [facility] Co de Phone Number [facility] [place] [address] * CMV PCR, Quantitative (05/13/2017 6:00 AM EDT) CMV Quant (Numeric) <137 IU/mL [facility] CMV Quant (Interp) Result: Not Detected Sample: plasma Method: This quantitative real-time PCR assay was performed in the [facility] using ??CHIN[employer]?? AmpliPrep/CHINMAY? ? TaqMan?? CMV Test ([employer] Linear Range: 137 IU/mL - 9,100,000 IU/mL (2.14 log ? 6.96 log IU/mL) Limit of Detection: 91 IU/mL (1.96 log IU/mL) [facility] Blood specimen (specimen) 05/13/2017 6:00 AM EDT 05/14/2017 12:12 PM EDT Narrative Resulting Agency Comment Spec In Lab Anup Hawkins MD MOLECULAR ORDERAB LES [facility] [place] [address] * (ABNORMAL) Basic Metabolic Panel (non-fasting) (05/13/2017 6:00 AM EDT) Pathologist [facility] Glucose 102 65 - 199 mg/dL [facility] Comment:Diabetes: >=200 mg/d L plus symptoms Blood Urea Nitrogen 67(H) 10 - 20 mg/dL [facility] Creatinine 3.87(H) 0.80 - 1.50 mg/dL [facility] Sodium 147(H) 135 - 145 mmol/L [facility] Potassium 3.5 3.5 - 5.0 mmol/L [facility] Comment: Please note: ??Patients with WBC >100,000 may have falsely elevated Potassium levels. ??For accurate Potassium quantification in these patients send serum separator tube (gold top) for subsequent determinations. ??Contact the Clinical Chemistry Laboratory if there are any questions. Chloride 116(H) 98 - 107 mmol/L [facility] Carbon Dioxide 15(L) 22 - 31 mmol/L [facility] Anion Gap 16(H) 5 - 15 mmol/L [facility] Calcium 7.5(L) 8.5 - 10.5 mg/dL [facility] Est Glomerular Filtration Rate 16(L) >=60 [facility] Comment: The reported eGFR should be multiplied by 1.2 for patients. The MDRD is not an appropriate measure of renal function for patients with body mass extremes or in patients with acute kidney failure. http://Arkadium/DHnkdep [email or web address]://Arkadium/DHMCnkf Blood specimen (specimen) 05/13/2017 6:00 AM EDT 05/13/2017 6:19 AM EDT Narrative Resulting Agency Comment Spec In Lab Jesenia Dolan MD CHEMISTRY ORDERABLE S Performing Organization Address City/State/[facility] Co de Phone Number [facility] [place] [address] * (ABNORMAL) Differential, Automated (05/12/2017 11:49 PM EDT) Neutrophil % 62.9 % [facility] Neutrophil Absolute 1.90 1.70 - 6.10 x10(3)/mc L [facility] Lymph % 18.9 % [facility] Lymphocytes Abs 0.6(L) 0.9 - 3.2 x10(3)/mc L [facility] Monocyte % 15.9 % [facility] Monocyte Abs 0.5 0.3 - 0.9 x10(3)/mc L [facility] Eos % 2.0 % [facility] Eosinophils Abs 0.1 0.0 - 0.4 x10(3)/mc L [facility] Basophil % 0.0 % [facility] Baso Absolute 0.0 0.0 - 0.1 x10(3)/mc L [facility] Immature Gran % 0.30 % [facility] Comment: Immature granulocytes(IG's)percentage and absolute count will include metamyelocytes, myelocytes, and promyelocytes. Blood smears from CBCs yielding IG's will be scanned manually for concordance. If this scan disagrees with the automated IG or if promyelocytes are noted, a manual differential will be performed. Immature Gran Absolute 0.01 0.00 - 0.04 x10(3)/mc L [facility] Blood specimen (specimen) 05/12/2017 11:49 PM EDT 05/12/2017 11:55 PM EDT Narrative Resulting Agency Comment Spec In Lab Jesenia Dolan MD HEMATOLOGY ORDERABL ES [facility] [place] [address] * (ABNORMAL) Hemogram (05/12/2017 11:49 PM EDT) White Blood Cell 3.0(L) 4.0 - 9.5 x10(3)/mc L [facility] Red Blood Cell 2.74(L) 4.58 - 5.54 x10(6)/mc L [facility] Hemoglobin 8.1(L) 13.7 - 16.5 gm/dL [facility] Hematocrit 23.1(L) 40.5 - 48.5 % [facility] Mean Cell Volume 84.3 82.9 - 93.[address] [facility] Mean Cell Hemoglobin 29.6 27.5 - 32.[address] [facility] Mean Cell Hemoglobin Concentration 35.1 32.0 - 35.7 gm/dL [facility] Platelet 166 145 - 357 x10(3)/mc L [facility] RDW Standard Deviation 44.8 36.0 - 45.[address] [facility] RDW coefficient of variation 14.7(H) 11.4 - 13.8 % [facility] Mean Platelet Volume 10.1 7.6 - 12.[address] [facility] NRBC% auto 0.0 % [facility] NRBC Absolute 0.000 0.000 - 0.000 x10(3)/mc L [facility] Blood specimen (specimen) 05/12/2017 11:49 PM EDT 05/12/2017 11:55 PM EDT Narrative Resulting Agency Comment Spec In Lab Jesenia Dolan MD HEMATOLOGY ORDERABL ES [facility] [place] [address] * (ABNORMAL) Basic Metabolic Panel (non-fasting) (05/12/2017 11:49 PM EDT) Glucose 102 65 - 199 mg/dL [facility] Comment:Diabetes: >=200 mg/d L plus symptoms Blood Urea Nitrogen 71(H) 10 - 20 mg/dL [facility] Creatinine 4.11(H) 0.80 - 1.50 mg/dL [facility] Sodium 144 135 - 145 mmol/L [facility] Potassium 3.4(L) 3.5 - 5.0 mmol/L [facility] Comment: Please note: ??Patients with WBC >100,000 may have falsely elevated Potassium levels. ??For accurate Potassium quantification in these patients send serum separator tube (gold top) for subsequent determinations. ??Contact the Clinical Chemistry Laboratory if there are any questions. Chloride 113(H) 98 - 107 mmol/L [facility] Carbon Dioxide 14(L) 22 - 31 mmol/L [facility] Anion Gap 17(H) 5 - 15 mmol/L [facility] Calcium 7.5(L) 8.5 - 10.5 mg/dL [facility] Est Glomerular Filtration Rate 15(L) >=60 [facility] Comment: The reported eGFR should be multiplied by 1.2 for patients. The MDRD is not an appropriate measure of renal function for patients with body mass extremes or in patients with acute kidney failure. [email or web address].Cue/DHnkdep [email or web address]://Arkadium/DHMCnkf Blood specimen (specimen) 05/12/2017 11:49 PM EDT 05/12/2017 11:55 PM EDT Narrative Resulting Agency Comment Spec In Lab Jesenia Dolan MD CHEMISTRY ORDERABLE S Performing Organization Address City/[facility]/ZIP Co de Phone Number [facility] [place] [address] * Transfuse RBC (05/12/2017 11:03 PM EDT) [...] RBC (05/12/2017 2:11 PM EDT) Dispensed? Yes [facility] Blood specimen (specimen) No Charge / Unknown 05/12/2017 2:11 PM EDT 05/12/2017 2:11 PM EDT Narrative Resulting Agency Comment Spec In Lab Jesenia Dolan MD BLOOD BANK PRODUCT ORDERABLES Performing Organization Address [facility]/ZIP Co de Phone Number [facility] [place] [address] * Prepare RBC (05/12/2017 2:10 PM EDT) Dispensed? Yes [facility] Blood specimen (specimen) 05/12/2017 2:10 PM EDT 05/12/2017 2:06 PM EDT Narrative Resulting Agency Comment Spec In Lab Jesenia Dolan MD BLOOD BANK PRODUCT ORDERABLES Performing Organization Address [facility] Co de Phone Number [facility] [place] [address] * Prepare thawed plasma (05/12/2017 2:05 PM EDT) Dispensed? Yes [facility] Blood specimen (specimen) 05/12/2017 2:05 PM EDT 05/12/2017 2:06 PM EDT Narrative Resulting Agency Comment Spec In Lab Jesenia Dolan MD BLOOD BANK PRODUCT ORDERABLES Performing Organization Address [facility] [place] [address] * (ABNORMAL) Prothrombin Time (05/12/2017 2:02 PM EDT) Prothrombin Time 27.5(H) 11.8 - 14.[address] [facility] Comment: An INR [...] International Normalization Ratio 2.6(H) 0.9 - 1.1 [facility] Blood specimen (specimen) 05/12/2017 2:02 PM EDT 05/12/2017 2:20 PM EDT Narrative Resulting Agency Comment Spec In Lab Jesenia Dolan MD HEMATOLOGY ORDERABL ES Performing Organization Address [facility] Co de Phone Number [facility] [place] [address] * (ABNORMAL) Magnesium (05/12/2017 11:56 AM EDT) Pathologist [facility] Magnesium 0.61(L) 0.69 - 1.07 mmol/L [facility] Blood specimen (specimen) Venous Draw / Unknown 05/12/2017 11:56 AM EDT 05/12/2017 12:15 PM EDT Narrative Resulting Agency Comment Spec In Lab Jesenia Dolan MD CHEMISTRY ORDERABLE S [facility] [place] [address] * (ABNORMAL) Differential, Automated (05/12/2017 11:56 AM EDT) [facility] Neutrophil % 69.2 % [facility] Neutrophil Absolute 2.04 1.70 - 6.10 x10(3)/mc L [facility] Lymph % 13.9 % [facility] Lymphocytes Abs 0.4(L) 0.9 - 3.2 x10(3)/mc L [facility] Monocyte % 14.9 % [facility] Monocyte Abs 0.4 0.3 - 0.9 x10(3)/mc L [facility] Eos % 1.4 % [facility] Eosinophils Abs 0.0 0.0 - 0.4 x10(3)/mc L [facility] Basophil % 0.3 % [facility] Baso Absolute 0.0 0.0 - 0.1 x10(3)/mc L [facility] Immature Gran % 0.30 % [facility] Comment: Immature granulocytes(IG's)percentage and absolute count will include metamyelocytes, myelocytes, and promyelocytes. Blood smears from CBCs yielding IG's will be scanned manually for concordance. If this scan disagrees with the automated IG or if promyelocytes are noted, a manual differential will be performed. Immature Gran Absolute 0.01 0.00 - 0.04 x10(3)/mc L [facility] Blood specimen (specimen) 05/12/2017 11:56 AM EDT 05/12/2017 12:11 PM EDT Narrative Resulting Agency Comment Spec In Lab Jesenia Dolan MD HEMATOLOGY ORDERABL ES [facility] [place] [address] * (ABNORMAL) Hemogram (05/12/2017 11:56 AM EDT) White Blood Cell 3.0(L) 4.0 - 9.5 x10(3)/[facility] LABORATORY Red Blood Cell 2.49(L) 4.58 - 5.54 x10(6)/[facility]ATORY Hemoglobin 6.9(L) 13.7 - 16.5 gm/dL [facility] Hematocrit 21.6(L) 40.5 - 48.5 % [facility] Mean Cell Volume 86.7 82.9 - 93.1 [facility] Mean Cell Hemoglobin 27.7 27.5 - 32.[address] [facility] Mean Cell Hemoglobin Concentration 31.9(L) 32.0 - 35.7 gm/dL [facility] Platelet 193 145 - 357 x10(3)/[facility] RDW Standard Deviation 48.7(H) 36.0 - 45.0 [facility] RDW coefficient of variation 15.4(H) 11.4 - 13.8 % [facility] Mean Platelet Volume 10.4 7.6 - 12.9 [facility] NRBC% auto 0.0 % [facility] NRBC Absolute 0.000 0.000 - 0.000 x10(3)/[facility] Blood specimen (specimen) 05/12/2017 11:56 AM EDT 05/12/2017 12:11 PM EDT Narrative Resulting Agency Comment Spec In Lab Jesenia Dolan MD HEMATOLOGY ORDERABL ES [facility] [place] [address] * (ABNORMAL) Basic Metabolic Panel (non-fasting) (05/12/2017 11:56 AM EDT) Glucose 126 65 - 199 mg/dL [facility] Comment:Diabetes: >=200 mg/d L plus symptoms Blood Urea Nitrogen 80(H) 10 - 20 mg/dL [facility] Creatinine 4.31(H) 0.80 - 1.50 mg/dL [facility] Sodium 143 135 - 145 mmol/L [facility] Potassium 3.1(L) 3.5 - 5.0 mmol/L [facility] Comment: Please note: ??Patients with WBC >100,000 may have falsely elevated Potassium levels. ??For accurate Potassium quantification in these patients send serum separator tube (gold top) for subsequent determinations. ??Contact the Clinical Chemistry Laboratory if there are any questions. Chloride 115(H) 98 - 107 mmol/L [facility] Carbon Dioxide 12(L) 22 - 31 mmol/L [facility] Anion Gap 16(H) 5 - 15 mmol/L [facility] Calcium 7.6(L) 8.5 - 10.5 mg/dL [facility] Est Glomerular Filtration Rate 14(L) >=60 [facility] Comment: The reported eGFR should be multiplied by 1.2 for patients. The MDRD is not an appropriate measure of renal function for patients with body mass extremes or in patients with acute kidney failure. [email or web address] [email or web address]/DHMCnkf Blood specimen (specimen) 05/12/2017 11:56 AM EDT 05/12/2017 12:11 PM EDT Narrative Resulting Agency Comment Spec In Lab Jesenia Dolan MD CHEMISTRY ORDERABLE S [facility] [place] [address] * US Renal Transplant Right (05/12/2017 10:48 [...] 11:17 am) PATIENT INFO: ID #: ? [id number] ? : [birth year] (56 yrs) Name: ? CHRISTY AMBROSE ? Visit Date:05/12/2017 10:42 am PERFORMED BY: Performed By: ? Naz Smith RDMS Attending: ?Lemuel JONES, Devi Adams Resident: ? Danny Spears MD Referred By: ?JESENIA DOLAN Location: ? [facility] SERVICE(S) PROVIDED: ??URTPR - Renal Transplant - Right - [id number] ? [id number] INDICATIONS: ??Evaluate for any evidence of hydronephrosis [...] 05/12/2017 11:17 am) PATIENT INFO: ID #: [id number] : [birth year] (56 yrs) Name: CHRISTY AMBROSE Visit Date:05/12/2017 10:42 am PERFORMED BY: Performed By: Naz Smith RDMS Attending: Devi Hdez MD Resident: Danny Spears MD Referred By: JESENIA DOLAN Location: [facility] SERVICE(S) PROVIDED: URTPR - Renal Transplant - Right - [id number] INDICATIONS: Evaluate for any evidence of hydronephrosis [...] 8:18 AM EDT) ABORH Type Recheck Completed [facility] Blood specimen (specimen) 05/12/2017 8:18 AM EDT 05/12/2017 8:36 AM EDT Narrative Resulting Agency Comment Spec In Lab Jesenia Dolan MD BLOOD BANK LAB RYAN Ken[place] Organization Address City/State/ZIP Co de Phone Number [facility] [place] [address] * Antibody screen (05/12/2017 8:18 AM EDT) Ab Screen Interp Negative [facility] Expires at [id number] on: 05/15/2017 [facility] Blood specimen (specimen) 05/12/2017 8:18 AM EDT 05/12/2017 8:36 AM EDT Narrative Resulting Agency Comment Spec In Lab Jesenia Dolan MD BLOOD BANK LAB ORDOctaviano CALERO [facility] [place] [address] * ABO/Rh Typing (05/12/2017 8:18 AM EDT) ABORH Type A Pos [facility] Blood specimen (specimen) 05/12/2017 8:18 AM EDT 05/12/2017 8:36 AM EDT Narrative Resulting Agency Comment Spec In Lab Jesenia Dolan MD BLOOD BANK LAB ORDOctaviano CALERO Performing Organization Address City/[facility]/ZIP Co de Phone Number [facility] [place] [address] * (ABNORMAL) Prothrombin Time (05/12/2017 7:33 AM EDT) [facility] Prothrombin Time 53.8(Crit ical) 11.8 - 14.[address] [facility] Comment: Called by: eds, Read back [...] International Normalization Ratio 5.9(H) 0.9 - 1.1 [facility] Blood specimen (specimen) 05/12/2017 7:33 AM EDT 05/12/2017 7:42 AM EDT Narrative Resulting Agency Comment Spec In Lab Flori Thompson APRN HEMATOLOGY ORDERABLE S Performing Organization Address [facility]/ZIP Co de Phone Number [facility] [place] [address] * Creatinine, urine, random (05/12/2017 6:20 AM EDT) Creatinine, Urine 120 mg/dL [facility] Urine specimen (specimen) 05/12/2017 6:20 AM EDT 05/12/2017 6:47 AM EDT Narrative Resulting Agency Comment Spec In Lab Jesenia Dolan MD URINE ORDERABLES Performing Organization Address [facility] Co de Phone Number [facility] [place] [address] * Sodium, urine, random (05/12/2017 6:20 AM EDT) Sodium, Urine <20 mmol/L [facility] Urine specimen (specimen) 05/12/2017 6:20 AM EDT 05/12/2017 6:47 AM EDT Narrative Resulting Agency Comment Spec In Lab Jesenia Dolan MD URINE ORDERABLES Performing Organization Address [facility] Co de Phone Number [facility] [place] [address] * (ABNORMAL) _Urinalysis with microscopic (05/12/2017 6:20 AM EDT) Glucose, Urine Dipstick Negative Negative mg/dL [facility] [...] [facility] Leukocytes, Urine Dipstick Negative Negative [facility] Appearance, Urine Dipstick Clear Clear [facility] Specific [place] Urine Automated 1.015 1.002 - 1.030 [facility] Color, Urine Dipstick Yellow Yellow [facility] RBC, Urine <1 0 - 3 /HPF [facility] WBC, Urine 1 0 - 3 /HPF [facility] Squamous Epithelial Cells Raw Data, Urine <1 <=4 /HPF [facility] Hyaline Casts, Urine 4(H) 0 - 2 /LPF [facility] Urine specimen (specimen) 05/12/2017 6:20 AM EDT 05/12/2017 6:47 AM EDT Narrative Resulting Agency Comment Spec In Lab Jesenia Dolan MD URINE ORDERABLES [facility] [place] [address] * (ABNORMAL) Differential, Automated (05/12/2017 6:18 AM EDT) Neutrophil % 66.3 % [facility] Neutrophil Absolute 1.77 1.70 - 6.10 x10(3)/mc L [facility] Lymph % 18.7 % [facility] Lymphocytes Abs 0.5(L) 0.9 - 3.2 x10(3)/mc L [facility] Monocyte % 12.4 % [facility] Monocyte Abs 0.3 0.3 - 0.9 x10(3)/mc L [facility] Eos % 2.6 % [facility] Eosinophils Abs 0.1 0.0 - 0.4 x10(3)/[facility] Basophil % 0.0 % [facility] Baso Absolute 0.0 0.0 - 0.1 x10(3)/[facility] Immature Gran % 0.00 % [facility] Comment: Immature granulocytes(IG's)percentage and absolute count will include metamyelocytes, myelocytes, and promyelocytes. Blood smears from CBCs yielding IG's will be scanned manually for concordance. If this scan disagrees with the automated IG or if promyelocytes are noted, a manual differential will be performed. Immature Gran Absolute 0.00 0.00 - 0.04 x10(3)/[facility] Blood specimen (specimen) 05/12/2017 6:18 AM EDT 05/12/2017 6:33 AM EDT Narrative Resulting Agency Comment Spec In Lab Jesenia Dolan MD HEMATOLOGY ORDERABL ES [facility] [place] [address] * (ABNORMAL) Hemogram (05/12/2017 6:18 AM EDT) White Blood Cell 2.7(L) 4.0 - 9.5 x10(3)/[facility] Red Blood Cell 2.47(L) 4.58 - 5.54 x10(6)/[facility] Hemoglobin 7.2(L) 13.7 - 16.5 gm/dL [facility] Hematocrit 21.3(L) 40.5 - 48.5 % [facility] Mean Cell Volume 86.2 82.9 - 93.[address] [facility] Mean Cell Hemoglobin 29.1 27.5 - 32.[address] [facility] Mean Cell Hemoglobin Concentration 33.8 32.0 - 35.7 gm/dL [facility] Platelet 188 145 - 357 x10(3)/mc L [facility] RDW Standard Deviation 47.7(H) 36.0 - 45.[address] [facility] RDW coefficient of variation 15.3(H) 11.4 - 13.8 % [facility] Mean Platelet Volume 10.3 7.6 - 12.[address] [facility] NRBC% auto 0.0 % [facility] NRBC Absolute 0.000 0.000 - 0.000 x10(3)/mc L [facility] Blood specimen (specimen) 05/12/2017 6:18 AM EDT 05/12/2017 6:33 AM EDT Narrative Resulting Agency Comment Spec In Lab Jesenia Dolan MD HEMATOLOGY ORDERABL ES Performing Organization Address [facility] de Phone Number [facility] [place] [address] * Prealbumin (05/12/2017 6:18 AM EDT) Prealbumin 28 20 - 40 mg/dL [facility] Comment: Prealbumin levels are generally lower in the pediatric population; adult concentrations are usually attained near puberty. Blood specimen (specimen) 05/12/2017 6:18 AM EDT 05/12/2017 6:33 AM EDT Narrative Resulting Agency Comment Spec In Lab Jesenia Dolan MD CHEMISTRY ORDERABLE S Performing Organization Address [facility] Co de Phone Number [facility] [place] [address] * (ABNORMAL) Basic Metabolic Panel (non-fasting) (05/12/2017 6:18 AM EDT) Glucose 101 65 - 199 mg/dL [facility] Comment:Diabetes: >=200 mg/d L plus symptoms Blood Urea Nitrogen 82(H) 10 - 20 mg/dL [facility] Creatinine 4.93(H) 0.80 - 1.50 mg/dL [facility] Sodium 148(H) 135 - 145 mmol/L [facility] Potassium 3.3(L) 3.5 - 5.0 mmol/L [facility] Comment: Please note: ??Patients with WBC >100,000 may have falsely elevated Potassium levels. ??For accurate Potassium quantification in these patients send serum separator tube (gold top) for subsequent determinations. ??Contact the Clinical Chemistry Laboratory if there are any questions. Chloride 116(H) 98 - 107 mmol/L [facility] Carbon Dioxide 12(L) 22 - 31 mmol/L [facility] Anion Gap 20(H) 5 - 15 mmol/L [facility] Calcium 7.4(L) 8.5 - 10.5 mg/dL [facility] Est Glomerular Filtration Rate 12(L) >=60 [facility] Comment: The reported eGFR should be multiplied by 1.2 for patients. The MDRD is not an appropriate measure of renal function for patients with body mass extremes or in patients with acute kidney failure. http://[email or web address].Cue/DHnkdep http://Arkadium/DHMCnkf Blood specimen (specimen) 05/12/2017 6:18 AM EDT 05/12/2017 6:33 AM EDT Narrative Resulting Agency Comment Spec In Lab Jesenia Dolan MD CHEMISTRY ORDERABLE S [facility] [place] [address] * Tacrolimus level (05/12/2017 6:18 AM EDT) Tacrolimus <3.0 ng/mL [facility] Comment: Trough therapeutic: ??5-15 ng/mL Performed by ultra-performance liquid chromatography tandem mass spectrometry (UPLCMS/MS). This test was developed and its performance characteristics determined by [facility]. It has not been cleared or [...] MD CHEMISTRY ORDERABLE S Performing Organization Address [facility] Co de Phone Number [facility] [place] [address] * Phosphorus (05/12/2017 6:18 AM EDT) Phosphorus 4.4 2.5 - 4.5 mg/dL [facility] Blood specimen (specimen) 05/12/2017 6:18 AM EDT 05/12/2017 6:33 AM EDT Narrative Resulting Agency Comment Spec In Lab Jesenia Dolan MD CHEMISTRY ORDERABLE S Performing Organization Address [facility] Co de Phone Number [facility] [place] [address] * Hemoglobin A1c (05/12/2017 6:18 AM EDT) Hemoglobin A1c 5.5 4.3 - 5.6 % [facility] Comment: Reference Range: 4.3 - [...] Mellitus, Diabetes Care 2013; 36: Suppl. 1, X47-24 Estimated Average Glucose 111 mg/dL [facility] Comment: eAG equivalents for HbA1c [...] into estimated average glucose values. ??Diabetes Care 2008:31(8):1355-6751. Blood specimen (specimen) 05/12/2017 6:18 AM EDT 05/12/2017 6:32 AM EDT Narrative Resulting Agency Comment Spec In Lab Jesenia Dolan MD CHEMISTRY ORDERABLE S [facility] [place] [address] * (ABNORMAL) Hepatic Function Panel (05/12/2017 6:18 AM EDT) Protein, Total 4.8(L) 6.1 - 8.0 gm/dL [facility] Albumin 3.0(L) 3.2 - 5.2 gm/dL [facility] Aspartate Aminotransferase 11 0 - 39 unit/L [facility] Alanine Aminotransferase 10 0 - 55 unit/L [facility] Alkaline Phosphatase 101 40 - 120 unit/L [facility] Bilirubin, Total 0.3 0.2 - 1.3 mg/dL [facility] Bilirubin, Direct 0.1 0.0 - 0.3 mg/dL [facility] Blood specimen (specimen) 05/12/2017 6:18 AM EDT 05/12/2017 6:33 AM EDT Narrative Resulting Agency Comment Spec In Lab Jesenia Dolan MD CHEMISTRY ORDERABLE S Performing Organization Address City/[facility]/ZIP Co de Phone Number [facility] [place] [address] * TSH [place] (05/12/2017 6:18 AM EDT) Thyroid Stimulating Hormone 3.21 0.27 - 4.20 mlU/ML [facility] Blood specimen (specimen) 05/12/2017 6:18 AM EDT 05/12/2017 6:33 AM EDT Narrative Resulting Agency Comment Spec In Lab Jesenia Dolan MD CHEMISTRY ORDERABLE S Performing Organization Address City/[facility] Co de Phone Number [facility] [place] [address] * (ABNORMAL) XR Chest PA & Lateral [...] 12 Lead (05/11/2017 9:18 PM EDT) Pathologist [facility] Ventricular rate 48 BPM MUSE SYSTEM Atrial Rate 48 BPM MUSE SYSTEM P-R Interval 132 ms MUSE SYSTEM QRS Duration 98 ms MUSE SYSTEM Q-T Interval 448 ms MUSE SYSTEM QTC Calculated (Bezet) 400 ms MUSE SYSTEM Calculated P [place] 54 degrees MUSE SYSTEM Calculated R [place] 56 degrees MUSE SYSTEM Calculated T [place] 47 degrees MUSE SYSTEM INTERPRETATION Marked sinus bradycardia Abnormal ECG When compared with ECG of 26-NOV-2002 10:23, T wave amplitude has decreased in Lateral leads Confirmed by Carter Pan MD ([id number]) on 05/12/2017 3:10:32 PM MUSE SYSTEM 05/11/2017 9:18 PM EDT 05/12/2017 3:10 PM EDT Jesenia Dolan MD ECG ORDERABLES MUSE SYSTEM * (ABNORMAL) Differential, Automated (05/11/2017 8:30 PM EDT) [facility] Neutrophil % 65.9 % [facility] Neutrophil Absolute 2.58 1.70 - 6.10 x10(3)/mc L [facility] Lymph % 16.1 % [facility] Lymphocytes Abs 0.6(L) 0.9 - 3.2 x10(3)/mc L [facility] Monocyte % 15.9 % [facility] Monocyte Abs 0.6 0.3 - 0.9 x10(3)/mc L [facility] Eos % 1.5 % [facility] Eosinophils Abs 0.1 0.0 - 0.4 x10(3)/mc L [facility] Basophil % 0.3 % [facility] Baso Absolute 0.0 0.0 - 0.1 x10(3)/mc L [facility] Immature Gran % 0.30 % [facility] Comment: Immature granulocytes(IG's)percentage and absolute count will include metamyelocytes, myelocytes, and promyelocytes. Blood smears from CBCs yielding IG's will be scanned manually for concordance. If this scan disagrees with the automated IG or if promyelocytes are noted, a manual differential will be performed. Immature Gran Absolute 0.01 0.00 - 0.04 x10(3)/[facility] Blood specimen (specimen) 05/11/2017 8:30 PM EDT 05/11/2017 8:42 PM EDT Narrative Resulting Agency Comment Spec In Lab Jesenia Dolan MD HEMATOLOGY ORDERABL ES [facility] [place] [address] * (ABNORMAL) Hemogram (05/11/2017 8:30 PM EDT) White Blood Cell 3.9(L) 4.0 - 9.5 x10(3)/[facility] Red Blood Cell 2.95(L) 4.58 - 5.54 x10(6)/[facility] Hemoglobin 8.5(L) 13.7 - 16.5 gm/dL [facility] Hematocrit 26.0(L) 40.5 - 48.5 % [facility] Mean Cell Volume 88.1 82.9 - 93.1 [facility] Mean Cell Hemoglobin 28.8 27.5 - 32.[address] [facility] Mean Cell Hemoglobin Concentration 32.7 32.0 - 35.7 gm/dL [facility] Platelet 214 145 - 357 x10(3)/[facility] RDW Standard Deviation 49.6(H) 36.0 - 45.[address] [facility] RDW coefficient of variation 15.6(H) 11.4 - 13.8 % [facility] Mean Platelet Volume 10.2 7.6 - 12.[address] [facility] NRBC% auto 0.0 % [facility] NRBC Absolute 0.000 0.000 - 0.000 x10(3)/mc L [facility] Blood specimen (specimen) 05/11/2017 8:30 PM EDT 05/11/2017 8:42 PM EDT Narrative Resulting Agency Comment Spec In Lab Jesenia Dolan MD HEMATOLOGY ORDERABL ES [facility] [place] [address] * (ABNORMAL) Basic Metabolic Panel (non-fasting) (05/11/2017 8:30 PM EDT) Glucose 110 65 - 199 mg/dL [facility] Comment:Diabetes: >=200 mg/d L plus symptoms Blood Urea Nitrogen 84(H) 10 - 20 mg/dL [facility] Creatinine 4.93(H) 0.80 - 1.50 mg/dL [facility] Sodium 144 135 - 145 mmol/L [facility] Potassium 3.3(L) 3.5 - 5.0 mmol/L [facility] Comment: Please note: ??Patients with WBC >100,000 may have falsely elevated Potassium levels. ??For accurate Potassium quantification in these patients send serum separator tube (gold top) for subsequent determinations. ??Contact the Clinical Chemistry Laboratory if there are any questions. Chloride 113(H) 98 - 107 mmol/L [facility] Carbon Dioxide 12(L) 22 - 31 mmol/L [facility] Anion Gap 19(H) 5 - 15 mmol/L [facility] Calcium 8.1(L) 8.5 - 10.5 mg/dL [facility] Est Glomerular Filtration Rate 12(L) >=60 [facility] Comment: The reported eGFR should be multiplied by 1.2 for patients. The MDRD is not an appropriate measure of renal function for patients with body mass extremes or in patients with acute kidney failure. http://[email or web address].Cue/DHnkdep http://HiGear.com/DHMCnkf Blood specimen (specimen) 05/11/2017 8:30 PM EDT 05/11/2017 8:42 PM EDT Narrative Resulting Agency Comment Spec In Lab Jesenia Dolan MD CHEMISTRY ORDERABLE S Performing Organization Address City/[facility]/ZIP Co de Phone Number [facility] [place] [address] * Lactate, whole blood, send to lab (05/11/2017 8:30 PM EDT) Lactate WB 1.2 0.5 - 2.2 mmol/L [facility] Blood specimen (specimen) 05/11/2017 8:30 PM EDT 05/11/2017 8:40 PM EDT Narrative Resulting Agency Comment Spec In Lab Jesenia Dolan MD CHEMISTRY ORDERABLE S Performing Organization Address City/[facility]/ZIP Co de Phone Number [facility] [place] [address] documented in this encounter Visit Diagnoses Diagnosis [...] (severe) Prophylactic immunotherapy Need for prophylactic immunotherapy intermediate project manager current use of immunosuppressive drug H/O kidney [...] Discontinued, To back 1719 (Given - Provider: Nnada Mg, SAVANNA)2015 (Given - Provider: Rosita Aranda [...] 120 Minutes 1636 (New Bag - Provider: Semla Torres RN - Comment: given after last [...] Provider: Selma Torres RN)2014 (Given - Provider: Mari aE Galvan RN) 0900 (Given - Provider: Nanda [...] No documented in this encounter Care Teams Banking Services Officer Relationship Specialty Start Date End Date Carroll Fuentes DO [address] [place] [address] PCP - General 09/23/11 10/20/22 documented as of this encounter
--- OUTSIDE RECORDS SUMMARY | 2024-05-23 13:33 | XMS_ITS | Encounter Summary ---
Author Organization [facility] [place] [address] Care Team Providers Care Runner Man Name Role Phone AlfredoCarroll allison Primary Care Provider Encounter Details Date Type Department Care Team (Late st Contact Info) Description 05/26/2017 10:20 AM EST [place] [address] Renal mass Social History Tobacco Use Types [...] (Bezet) 411 ms MUSE SYSTEM Calculated P [place] 68 degrees MUSE SYSTEM Calculated R [place] 64 degrees MUSE SYSTEM Calculated T [place] 57 degrees MUSE SYSTEM INTERPRETATION Marked sinus [...] ureter documented in this encounter Care Teams Runner Man Relationship Specialty Start Date End Date Carroll Fuentes DO [address] [place] [address] PCP - General 09/23/11 10/20/22 documented as of this encounter
--- OUTSIDE RECORDS SUMMARY | 2024-05-23 13:33 | XMS_ITS | Encounter Summary ---
[place] [address] Care Team Providers Care English Drawer Name Role Phone AlfredoCarroll allison Primary Care Provider [phone] Reason for Visit * Reason Comments Renal [...] stage 4, GFR 15-29 ml/min Prophylactic immunotherapy registered nurse obstetrics current use of immunosuppressive drug H/O kidney transplant [place] [address] [facility] [place] [address] Referral ID Status Reason Start Date Expiration Date V isits Requested Visits Authorized [id number] Closed Specialty Service Requested 05/16/2017 05/16/2018 1 1 Encounter Details Date Type Department Care Team (Late st Contact Info) Description 05/19/2017 1:20 PM EST [place] [address] Jax Mills MD [facility] [place] [address] Renal mass Social History Tobacco Use Types [...] found tohave new renal masses in his algaaciq left kidney. He denies any flank pain [...] performed by Miguel Angel Moreno MD at [facility] MAIN OR ??? PRO EXC PAROTD, TOTAL, UNILAT RAD NECK Left 02/05/2016 @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, TOTAL, WITH UNILATERAL RADICAL NECK DISSECTION performed by Miguel Angel Moreno MD at [facility] MAIN OR ??? PRO EXC SKIN MALIG 3.1-4CM FACE, FACIAL Left 02/05/2016 EXC MALIGNANT LESION, 3.1 TO 4.0CM, FACE performed by Miguel Angel Moreno MD at [facility] MAIN OR ? ? PRO EXC SKIN MALIG >4CM TRUNK, ARM, LEG 04/19/2012 EXC MALIGNANT LESION, MICHAEL > 4.0CM, TRUNK performed by SABRINA SANCHEZ at [facility] MAIN OR ??? PRO REPAIR INTERMEDIATE S/A/T/E 2.6-7.5 CM 04/19/2012 REPAIR INTERMEDIATE WOUND, (NO HANDS OR FEET) 2.6 TO 7.5CM, UPPER EXTREMITY performed by SABRINA SANCHEZ at [facility] MAIN OR ? ? PRO SPLIT GRFT, HEAD, FAC, HAND, FEET <100SQCM N/A 02/20/2016 SPLIT THICKNESS SKIN SPLIT GRAFT,100SQ CM OR LESS, NECK performed by Miguel Angel Moreno MD at [facility] MAIN OR ??? PRO UPPER GI ENDOSCOPY, BIOPSY N/A 05/13/2017 EGD WITH BIOPSY (WRVU 2.49) performed by Aditya Barrera MD at [facility] ENDOSCOPY ??? PRO VASCULAR SURGERY PROCEDURE UNLIST Left 11/20/2015 LIGATION\REPAIR AV FISTULA performed by Camilo Ireland MD at [facility] MAIN OR ??? PRO VASCULAR SURGERY PROCEDURE UNLIST Left 11/20/2015 EXCISION VEIN FROM HAND performed by Camilo Ireland MD at [facility] MAIN OR ??? US RENAL TRANSPLANT [...] fevers, sweats. Positive for 20lbs weight loss QUALITY PROCESS ENGINEER: Denies loss of consciousness, denies balance difficulty, [...] UA Latest Ref Range: Clear Clear Spec [facility] UA Latest Ref Range: 1.002 - 1.030 [...] dilatation. Spleen: Normal. Adrenals: Normal. Kidneys: The algaaciq kidneys are severely atrophied. There are 3 well-circumscribed lesions projecting from the upper pole of the algaaciq left kidney. The smallest measures 2.0 cm [...] [facility], at107/26/2016 11:44 AM Jax Mills MD IMG DX ORDERABLES * (ABNORMAL) Comprehensive metabolic panel (non-fasting) (05/26/2017 11:19 AM EST) Glucose 97 65 - 199 mg/dL [facility] Comment:Diabetes: >=200 mg/d L plus symptoms Blood Urea Nitrogen 36(H) 10 - 20 mg/dL [facility] Creatinine 2.29(H) 0.80 - 1.50 mg/dL [facility] Sodium 148(H) 135 - 145 mmol/L [facility] Potassium 4.1 3.5 - 5.0 mmol/L [facility] Comment: Please note: ??Patients with WBC >100,000 may have falsely elevated Potassium levels. ??For accurate Potassium quantification in these patients send serum separator tube (gold top) for subsequent determinations. ??Contact the Clinical Chemistry Laboratory if there are any questions. Chloride 112(H) 98 - 107 mmol/L [facility] Carbon Dioxide 22 22 - 31 mmol/L [facility] Anion Gap 14 5 - 15 mmol/L [facility] Calcium 8.2(L) 8.5 - 10.5 mg/dL [facility] Protein, Total 5.6(L) 6.1 - 8.0 gm/dL [facility] Albumin 3.5 3.2 - 5.2 gm/dL [facility] Aspartate Aminotransferase 12 0 - 39 unit/L [facility] Alanine Aminotransferase 9 0 - 55 unit/L [facility] Alkaline Phosphatase 103 40 - 120 unit/L [facility] Bilirubin, Total 0.2 0.2 - 1.3 mg/dL [facility] Est Glomerular Filtration Rate 30(L) >=60 [facility] Comment: The reported eGFR should be multiplied by 1.2 for patients. The MDRD is not an appropriate measure of renal function for patients with body mass extremes or in patients with acute kidney failure. http://[employer].Xhale/DHnkdep http://[employer].Xhale/DHMCnkf Blood specimen (specimen) 05/26/2017 11:19 AM EST 05/26/2017 11:37 AM EST Narrative Resulting Agency Comment Spec In Lab Jax Mills MD CHEMISTRY ORDERABL ES Performing Organization Address [facility] Co de Phone Number [facility] [place] [address] * EKG 12 Lead (05/26/2017 11:16 AM EST) Ventricular rate 45 BPM MUSE SYSTEM Atrial Rate 45 BPM MUSE SYSTEM P-R Interval 156 ms MUSE SYSTEM QRS Duration 92 ms MUSE SYSTEM Q-T Interval 476 ms MUSE SYSTEM QTC Calculated (Bezet) 411 ms MUSE SYSTEM Calculated P [place] 68 degrees MUSE SYSTEM Calculated R [place] 64 degrees MUSE SYSTEM Calculated T [place] 57 degrees MUSE SYSTEM INTERPRETATION Marked sinus bradycardia Abnormal ECG When compared with ECG of 11-MAY-2017 21:18, No significant change was found Confirmed by MD Magaly, Ministerio ([id number]) on 05/26/2017 4:19:28 PM MUSE SYSTEM 05/26/2017 11:1 6 AM EST 05/26/2017 4:19 PM EST Jax Mills MD ECG ORDERABLES Performing Organization Address [facility] Co de Phone Number MUSE SYSTEM documented in this encounter Visit Diagnoses Diagnosis Renal mass Unspecified disorder of kidney and ureter Renal mass Unspecified disorder of kidney and ureter documented in this encounter Care Teams English Drawer Relationship Specialty Start Date End Date Carroll Fuentes DO [address] [place] [address] [address] [place] [address] PCP - General 09/23/11 10/20/22 documented as of this encounter
--- OUTSIDE RECORDS SUMMARY | 2024-05-23 13:34 | XMS_ITS | Encounter Summary ---
Author Organization [facility] Address [facility] [place] [address] Care Team Providers Care Director Career Services Name Role Phone AlfredoCarroll allison Primary Care Provider [phone] Encounter Details Date Type Department Care Team (Latest Contact Info) Description 03/19/2017 7:43 PM EDT - 03/19/2017 11:59 PM EDT Hospital [place] [address] Discharge Disposition: Home Social History Tobacco Use [...] (03/19/2017 9:08 AM EDT) Tacrolimus 4.5 ng/mL [facility] Comment: Trough [...] ORDERAB LES [facility] [place] [address] * SCAN DOC: LAB (03/19/2017 12:00 AM EDT) Narrative 03/19/2017 12:00 AM EDT Ordered by an unspecified provider. Scanning Provider MEDIA MGR SCAN EXT O RDR/RSLT documented in this encounter Visit Diagnoses Not on filedocumented in this encounter Care Teams Director Career Services Relationship Specialty Start Date End Date Carroll Fuentes DO [address] [place] [address] PCP - General 09/23/11 10/20/22 documented as of this encounter
--- OUTSIDE RECORDS SUMMARY | 2024-05-23 13:34 | XMS_ITS | Encounter Summary ---
Author Organization [facility] [place] [address] Care Team Providers Care Jewelry Casting Model Maker Apprentice Name Role Phone Alfredo, Carroll MIX Primary Care Provider [phone] Encounter Details Date Type Department Care Team (Latest Contact Info) Description 11/26/2016 10:25 AM EDT Laboratory Appointment Lab [address] [place] [id number] Anemia of chronic renal failure, stage 3 [...] Glucose Fasting 100(H) 65 - 99 mg/dL [facility] [...] of Diabetes Mellitus, Position Statement from the [place] [employer]. ??Diabetes Care, Volume 33, Supplement 1, Jul 2009 Blood Urea Nitrogen 56(H) 10 - 20 mg/dL [facility] Creatinine 2.64(H) 0.80 - 1.50 mg/dL [facility] Comment: Please note that the pediatric reference intervals supplied above were not validated at [facility]. Results from pediatric patients should be interpreted in conjunction to the patient's age, height and muscle mass. Sodium 141 135 - 145 mmol/L [facility] Potassium 5.6(H) 3.5 - 5.0 mmol/L [facility] Comment: Please note: ??Patients with WBC >100,000 may have falsely elevated Potassium levels. ??For accurate Potassium quantification in these patients send serum separator tube (gold top) for subsequent determinations. ??Contact the Clinical Chemistry Laboratory if there are any questions. Chloride 111(H) 98 - 107 mmol/L [facility] Carbon Dioxide 14(L) 22 - 31 mmol/L [facility] Anion Gap 16(H) 5 - 15 mmol/L [facility] Calcium 8.4(L) 8.5 - 10.5 mg/dL [facility] Protein, Total 6.6 6.1 - 8.0 gm/dL [facility] Albumin 4.2 3.2 - 5.2 gm/dL [facility] Aspartate Aminotransferase 21 0 - 39 unit/L [facility] Alanine Aminotransferase 13 0 - 55 unit/L [facility] Alkaline Phosphatase 98 40 - 120 unit/L [facility] Bilirubin, Total 0.3 0.2 - 1.3 mg/dL [facility] Bilirubin, Direct 0.1 0.0 - 0.3 mg/dL [facility] Est Glomerular Filtration Rate 25(L) >=60 [facility] Comment: This estimated GFR [...] the following links into your internet browser. [email or web address] Prell/DHnkdep [email or web address] Prell/DHMCnkf Blood specimen (specimen) Venous Draw / Unknown 11/26/2016 10:33 AM EDT 11/26/2016 10:39 AM EDT Narrative Resulting Agency Comment Spec In Lab Anup Hawkins MD CHEMISTRY ORDERAB LES [facility] [place] [address] * (ABNORMAL) Differential, Automated (11/26/2016 10:33 AM EDT) Neutrophil % 69.3 % [facility] Neutrophil Absolute 2.78 1.70 - 6.10 x10(3)/mc L [facility] Lymph % 17.2 % [facility] Lymphocytes Abs 0.7(L) 0.9 - 3.2 x10(3)/mc L [facility] Monocyte % 10.5 % [facility] Monocyte Abs 0.4 0.3 - 0.9 x10(3)/mc L [facility] Eos % 2.0 % [facility] Eosinophils Abs 0.1 0.0 - 0.4 x10(3)/mc L [facility] Basophil % 0.5 % [facility] Baso Absolute 0.0 0.0 - 0.1 x10(3)/ L [facility] Immature Gran % 0.50 % [facility] Comment: Immature granulocytes(IG's)percentage and absolute count will include metamyelocytes, myelocytes, and promyelocytes. Blood smears from CBCs yielding IG's will be scanned manually for concordance. If this scan disagrees with the automated IG or if promyelocytes are noted, a manual differential will be performed. Immature Gran Absolute 0.02 0.00 - 0.04 x10(3)/ L [facility] Blood specimen (specimen) 11/26/2016 10:33 AM EDT 11/26/2016 10:39 AM EDT Narrative Resulting Agency Comment Spec In Lab Anup Hawkins MD HEMATOLOGY ORDERA BLES [facility] [place] [address] * (ABNORMAL) Hemogram (11/26/2016 10:33 AM EDT) White Blood Cell 4.0 4.0 - 9.5 x10(3)/[facility] Red Blood Cell 3.11(L) 4.58 - 5.54 x10(6)/mc L [facility] Hemoglobin 9.1(L) 13.7 - 16.5 gm/dL [facility] Hematocrit 28.6(L) 40.5 - 48.5 % [facility] Mean Cell Volume 92.0 82.9 - 93.1 fL [facility] Mean Cell Hemoglobin 29.3 27.5 - 32.1 pg [facility] Mean Cell Hemoglobin Concentration 31.8(L) 32.0 - 35.7 gm/dL [facility] Platelet 185 145 - 357 x10(3)/ L [facility] RDW Standard Deviation 48.4(H) 36.0 - 45.0 fL [facility] RDW coefficient of variation 14.4(H) 11.4 - 13.8 % [facility] Mean Platelet Volume 9.9 7.6 - 12.9 fL [facility] NRBC% auto 0.0 % [facility] NRBC Absolute 0.000 0.000 - 0.000 x10(3)/mc L [facility] Blood specimen (specimen) 11/26/2016 10:33 AM EDT 11/26/2016 10:39 AM EDT Narrative Resulting Agency Comment Spec In Lab Anup Hawkins MD HEMATOLOGY ORDERA BLES Performing Organization Address City/[facility]/ZIP Co de Phone Number [facility] [address] * Gold Tube HOLD (11/26/2016 10:33 AM EDT) Gold Hold Sample in lab. [facility] Blood specimen (specimen) 11/26/2016 10:33 AM EDT 11/26/2016 10:39 AM EDT Anup Hawkins MD CHEMISTRY ORDERAB LES Performing Organization Address [facility] Co de Phone Number [facility] [place] [address] * Lavender Tube HOLD (11/26/2016 10:33 AM EDT) Lavender Hold Sample in lab. [facility] Blood specimen (specimen) 11/26/2016 10:33 AM EDT 11/26/2016 10:39 AM EDT Anup Hawkins MD HEMATOLOGY ORDERA BLES Performing Organization Address City/[facility]/ZIP Co de Phone Number [facility] [place] [address] * Vitamin D, 25-Hydroxy (11/26/2016 10:33 AM EDT) Vitamin D Total 25 OH 33 30 - 100 ng/mL [facility] [...] be considered to be insufficient or deficient. http://Zachary Prell/nkf-guidelines http://Zachary Prell/nejm-VitD The [employer] i[employer] Vitamin D Immunoassay detects both 25-OH Vitamin D2 and 25-OH Vitamin D3, but only a total Vitamin D concentration is reported. Blood specimen (specimen) 11/26/2016 10:33 AM EDT 11/26/2016 1:19 PM EDT Narrative Resulting Agency Comment Spec In Lab Anup Hawkins MD CHEMISTRY ORDERAB LES Performing Organization Address City/[facility]/ZIP Co de Phone Number [facility] [place] [address] * Uric acid (11/26/2016 10:33 AM EDT) Uric Acid 5.3 3.5 - 8.5 mg/dL [facility] Blood specimen (specimen) 11/26/2016 10:33 AM EDT 11/26/2016 10:39 AM EDT Narrative Resulting Agency Comment Spec In Lab Anup Hawkins MD CHEMISTRY ORDERAB LES Performing Organization Address City/[facility]/ZIP Co de Phone Number [facility] [place] [address] * Tacrolimus level (11/26/2016 10:33 AM EDT) Tacrolimus 3.2 ng/mL [facility] Comment: Trough therapeutic: ??5-15 ng/mL Performed by ultra-performance liquid chromatography tandem mass spectrometry (UPLCMS/MS). This test was developed and its performance characteristics determined by [facility]. It has not been cleared or [...] ORDERAB LES Performing Organization Address [facility] Co de Phone Number [facility] [place] [address] * Reticulocyte Count (11/26/2016 10:33 AM EDT) Reticulocyte % 0.9 0.7 - 2.6 % [facility] Retic Abs # 0.030 0.030 - 0.120 x10(6)/mcL [facility] Immature Retic% 7.6 0.0 - 15.6 % [facility] Reticulated Hgb 33.1 31.3 - 40.2 pg [facility] Blood specimen (specimen) 11/26/2016 10:33 AM EDT 11/26/2016 10:39 AM EDT Narrative Resulting Agency Comment Spec In Lab Anup Hawkins MD HEMATOLOGY ORDERA BLES Performing Organization Address [facility] de Phone Number [facility] [place] [address] * (ABNORMAL) PTH (11/26/2016 10:33 AM EDT) Parathyroid Hormone 121(H) 15 - 65 pg/mL [facility] Blood specimen (specimen) 11/26/2016 10:33 AM EDT 11/26/2016 10:39 AM EDT Narrative Resulting Agency Comment Spec In Lab Anup Hawkins MD CHEMISTRY ORDERAB LES Performing Organization Address [facility] Co de Phone Number [facility] [place] [address] * Phosphorus (11/26/2016 10:33 AM EDT) Phosphorus 4.0 2.5 - 4.5 mg/dL [facility] Blood specimen (specimen) 11/26/2016 10:33 AM EDT 11/26/2016 10:39 AM EDT Narrative Resulting Agency Comment Spec In Lab Anup Hawkins MD CHEMISTRY ORDERAB LES [facility] [place] [address] * Magnesium (11/26/2016 10:33 AM EDT) Magnesium 0.76 0.69 - 1.07 mmol/L [facility] Blood specimen (specimen) 11/26/2016 10:33 AM EDT 11/26/2016 10:39 AM EDT Narrative Resulting Agency Comment Spec In Lab Anup Hawkins MD CHEMISTRY ORDERAB LES Performing Organization Address City/[facility]/ZIP Co de Phone Number [facility] [place] [address] * (ABNORMAL) Lipid Panel (11/26/2016 10:33 AM EDT) Cholesterol, Total 86 <=239 mg/dL [facility] Triglyceride 76 <=199 mg/dL [facility] HDL Cholesterol 22(L) >=40 mg/dL [facility] LDL Cholesterol 49 <=190 mg/dL [facility] Cholesterol/HDL Ratio 3.9 ratio [facility] Lipid Interpretation See Note [facility] Comment: Lipid management should be guided by a patient? s ASCVD risk, goals and preferences. ACC/AHA Guidelines recommend high intensity statin if clinical ASCVD or LDL greater than or equal to 190 mg/dL. http://Icount.comurl.com/FYN-YVP-Oxwvxoiyp Adults aged 40-75 with LDL 70-189 mg/dL should have their 10 year ASCVD risk estimated with the ACC/AHA ASCVD risk production cost estimator http://tools.acc.org/LZTSA-Imjt-Dxhtxytcg/ Statin should be discussed if risk greater [...] CHEMISTRY ORDERAB LES [facility] [place] [address] * Hemoglobin A1c (11/26/2016 10:33 AM EDT) Hemoglobin A1c 4.8 4.3 - 5.6 % [facility] [...] 1, S67-74 Estimated Average Glucose 91 mg/dL [facility] Comment: eAG [...] into estimated average glucose values. ??Diabetes Care 2008:31(8):8343-0438. Blood specimen (specimen) 11/26/2016 10:33 AM EDT 11/26/2016 10:39 AM EDT Narrative Resulting Agency Comment Spec In Lab Anup Hawkins MD CHEMISTRY ORDERAB LES Performing Organization Address City/State/[facility] Co de Phone Number [facility] [place] [address] * 1,25-dihydroxycholecalciferol (11/26/2016 10:33 AM EDT) Vit D 1,25 Dihydroxy (NOVEMBER) 50 18 - 64 pg/mL [facility] Comment: ADDITIONAL INFORMATION This test was developed and its performance characteristics determined by [facility] in a manner consistent with CLIA requirements. This test has not been cleared or approved by the U.S. Food and Drug Administration. Test Performed by: [facility] - [address] [address] Blood specimen (specimen) 11/26/2016 10:33 AM EDT 11/26/2016 12:33 PM EDT Narrative Resulting Agency Comment Spec In Lab Anup Hawkins MD LAB SEND OUT RYAN CALERO [facility] [place] [address] documented in this encounter Visit Diagnoses Diagnosis Anemia of chronic renal failure, stage 3 (moderate) Kidney replaced by transplant documented in this encounter Care Teams Jewelry Casting Model Maker Apprentice Relationship Specialty Start Date End Date Carroll Fuentes DO [address] [place] [address] PCP - General 09/23/11 10/20/22 documented as of this encounter
--- OUTSIDE RECORDS SUMMARY | 2024-05-23 13:34 | XMS_ITS | Encounter Summary ---
Author Organization [facility] [place] [address] Care Team Providers Care Field Service Consultant Name Role Phone AlfredoCarroll allison Primary Care Provider [phone] Encounter Details Date Type Department Care Team (Late st Contact Info) Description 11/30/2016 Telephone [place] [id number] Crystal Brown CMA Social History Tobacco Use [...] 24 hours urine(s) have been faxed to [phone] * Telephone Encounter - Crystal Brown CMA - 11/30/2016 3:12 PM EDT ----- Message from Krysta Perea sent at 11/30/2016 12:38 PM EDT ----- Patient dropped off 2 urine jugs and left. They need lab orders. [facility] [phone] phone; [phone] fax documented in this encounter Plan of Treatment Not on file documented as of this encounter Visit Diagnoses Not on filedocumented in this encounter Care Teams Field Service Consultant Relationship Specialty Start Date End Date Carroll Fuentes DO [address] [place] [address] PCP - General 09/23/11 10/20/22 documented as of this encounter
--- OUTSIDE RECORDS SUMMARY | 2024-05-23 13:34 | XMS_ITS | Encounter Summary ---
[facility] Organization [facility] Address [facility] [place] [address] Care Team Providers Care Sack Department Supervisor Name Role Phone AlfredoCarroll allison Primary Care Provider [phone] Reason for Visit * Reason Comments Kidney Transplant Follow-up Immunotherapy Chronic Kidney Disease Encounter Details Date Type Department Care Team (Latest Contact Info) Description 11/26/2016 12:00 PM EDT Office Visit [place] [address] Anup Hawkins MD [facility] [place] [address] H/O kidney transplant; termination clerk current use of immunosuppressive drug; Metabolic acidosis; [...] Fontana, DO - 11/26/2016 12:[address] [facility] Transplant Nephrology Follow Up ? Date: [...] in his anticonvulsants. Patient referred by Dr. Fuentse. Mr. Adama Ram presents to clinic for [...] for diabetics, every 5 for non diabetics [place] kidney ultrasound looking for renal cell CA, [...] 6 months Ministerio Fontana DO Nephrology Fellow [facility] I reviewed all of the above findings and assessment of Dr. Fontana, edited the above note to reflect my assessment and examination and formulated the recommendations which accurately reflect mine. documented in this encounter Plan of Treatment Not on file documented as of this encounter Visit Diagnoses Diagnosis H/O kidney transplant Kidney replaced by transplant [facility] current use of immunosuppressive drug Metabolic acidosis Acidosis Essential hypertension Unspecified essential hypertension CKD (chronic kidney disease) stage 4, GFR 15-29 ml/min Chronic kidney disease, Stage IV (severe) Hyperkalemia Hyperpotassemia Aftercare following organ transplant Kidney replaced by transplant Prophylactic immunotherapy Need for prophylactic immunotherapy documented in this encounter Care Teams Sack Department Supervisor Relationship Specialty Start Date End Date Carroll Fuentes DO [address] [place] [address] PCP - General 09/23/11 10/20/22 documented as of this encounter
--- OUTSIDE RECORDS SUMMARY | 2024-05-23 13:34 | XMS_ITS | Encounter Summary ---
Author Organization [facility] [place] [address] Care Team Providers Care Technical Support 1 Software Engineer Name Role Phone AlfredoCarroll allison Primary Care Provider [phone] Reason for Visit * Reason Onset Date Comments Medication Refill 03/09/2017 Encounter Details Date Type Department Care Team (Late st Contact Info) Description 03/09/2017 Refill [place] [id number] Crystal Brown CMA S/P kidney transplant Social [...] transplant documented in this encounter Care Teams Technical Support 1 Software Engineer Relationship Specialty Start Date End Date Carroll Fuentes DO [address] [place] [address] PCP - General 09/23/11 10/20/22 documented as of this encounter
--- OUTSIDE RECORDS SUMMARY | 2024-05-23 13:34 | XMS_ITS | Encounter Summary ---
[place] [address] Care Team Providers Care Gyro Compass Tester Name Role Phone Carroll Fuentes DO Primary Care Provider Reason for Visit * Reason Onset Date Comments Medication Refill 11/26/2016 Encounter Details Date Type Department Care Team (Late st Contact Info) Description 11/26/2016 Refill [place] [address] Crystal Brown, [facility] Social History Tobacco Use Types Packs/Day [...] on filedocumented in this encounter Care Teams Gyro Compass Tester Relationship Specialty Start Date End Date Carroll Fuentes DO [address] [place] [address] PCP - General 09/23/11 10/20/22 documented as of this encounter
--- OUTSIDE RECORDS SUMMARY | 2024-05-23 13:34 | XMS_ITS | Encounter Summary ---
Author Organization Formerly [facility], [facility] [place] [address] Care Team Providers Care Emergency Room Doctor Name Role Phone AlfredoCarroll allison Primary Care Provider [phone] Reason for Visit * Auth/Cert Specialty Diagnoses / Procedures Referred By Shashi ko Referred To Contact Diagnoses TRISTIAN (acute kidney injury) ACUTE ON CHRONIC RENAL FAILURE Procedures emergency IPI Referral ID Status Reason Start Date Expiration Date Visits Re quested Visits Authorized [id number] 1 1 Encounter Details Date Type Department Care Team (Late st Contact Info) Description 05/13/2017 4:30 PM EDT - 05/13/2017 5:00 PM EDT Surgery [place] [address] Aditay Barrera MD [facility] [place] [address] EGD WITH BIOPSY (WRVU 2.39) Social History [...] Christy Ambrose Patient Age: 56 y.o. 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 Issues afterhours and on weekends will [...] Had a screening colonoscopy in 02/[address] in [facility] by [address] Saab (sp?). ?? Denies [...] BID to help healing. ? # L [place] Renal masses # Weight loss: Given history of ~25lb weight loss over past few weeks without significant change in po intake a CTC/A/P was pursued. While above esophagitis may contribute significantly to weight loss,there was anincidental finding of several [place] L renal masses, largest 5.2 cm concerning [...] dampened peak systolic velocities in??the midpolearcuate arteries [id number]. Allowing for differences in??scale, remainingvelocities and waveforms [...] ?? 05/14/17 -- US Retroperitoneal Echogenic atrophic [place] kidneys. Peripheral to a 2.5??cm left renal [...] follow up with Dr. Hawkins -- call [phone] to confirm. You will have an appointment at 10:00am on WednesdayMay 28. - You will be contacted by your PCP's office for follow up Your Inpatient Doctor(s) at [facility]: Abner Dolan MD General Instructions Warfarin (Coumadin??) [...] INR check is scheduled for: Wednesday05/19/[address] [facility] Fuentes to provide further dosing recommendations based on INR result. ??? It is very important that you have your INR checked regularly as your dose may change based on your lab values. ??? INR goal range: 2.0-3.0 ??? Expected duration of treatment: Indefinite ??? Provider responsible for ongoing outpatient warfarin management: ??? Dr. Carroll Fuentes ??? [place], [place] ? INR taken at [facility] ??? If you have not [...] a diet with a consistent amount of vmhenle-e-ghvcrujyjc foods and avoid major changes in your diet ?? Do not start or stop taking any prescription medications, rphq-pmh-oqlocqc medications, dietary supplements or herbal medications without [...] 10:20 AM LAB, THREE L Lab 3L [facility] [phone] 05/19/2017 11:20 AM Anup Hawkins MD Transplant at [place] [phone] Future Orders Complete By Expires Referral to Urology [[id number] Custom] As directed Process Instructions: If no [...] new findings of likely malignancy in left [place] kidney -- would like to have these findings evaluated urgently for therapy. Pending specialist evaluation, I anticipate: Choose One [X] Referral as Co-Management Do not type below here: [id number] Questions: My question or request is: See comment Discharge References/Attachments ELEVATED INR (JAPANESE) VITAMIN K DIET (JAPANESE) WARFARIN SAFETY TIPS (JAPANESE) documented in this encounter Discharge Instructions * Discharge Instructions* Nell Page, [facility] - 05/16/2017 12:18 PM EST [...] INR check is scheduled for: Wednesday05/19/[address] [facility] Fuentes to provide further dosing recommendations based on INR result. ??? It is very important that you have your INR checked regularly as your dose may change based on your lab values. ??? INR goal range: 2.0-3.0 ??? Expected duration of treatment: Indefinite ??? Provider responsible for ongoing outpatient warfarin management: ??? Dr. Carroll Fuentes ??? [place], [place] ? INR taken at [facility] ??? If you have not [...] a diet with a consistent amount of fgrqajs-p-srkfgaknxh foods and avoid major changes in your diet ?? Do not start or stop taking any prescription medications, goqb-heb-ojukgtg medications, dietary supplements or herbal medications without [...] follow up with Dr. Hawkins -- call [phone] to confirm. You will have an appointment at 10:00am on WednesdayMay 28. - You will be contacted by your PCP's office for follow up Your Inpatient Doctor(s) at [facility]: Abner Dolan MD * Attachments The following attachments cannot be sent through Care Everywhere. * ELEVATED INR (JAPANESE) * VITAMIN K DIET (JAPANESE) * WARFARIN SAFETY TIPS (JAPANESE) documented in this encounter Medications at Time [...] spent >30 minutes (Day of Discharge Code 74664) involved in the final examination of the [...] 12:20 PM EST Cardiac/Telemetry Nursing Progress Note [id number] Subjective: I'm feeling better. Objective: Vital Signs: [...] activity- up to 150's, int. Sinus arrhythmia ID 0.15 QRS 0.13 RR 1.23 QT 0.45 [...] GFR 15-29 ml/min ??? 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 director long term care current use of immunosuppressive [...] dampened peak systolic velocities in??the midpolearcuate arteries [id number]. Allowing for differences in??scale, remainingvelocities and waveforms [...] fluid. 05/14/17 -- US Retroperitoneal Echogenic atrophic [place] kidneys. Peripheral to a 2.5 cm left [...] large bore IV access ? # L [place] Renal masses - Discussed with urology, will [...] TRISTIAN, and UGIB Team Pager( Coverage 01/02): #[phone] PCP: Carroll Fuentes DO [phone] Attestation: IPI Certification I certify that I am a D-H credentialed attending provider with admitting privileges and that the patient meets or has met medical necessity to require an inpatient IPI level of care meeting a minimumof two midnights or is on the [facility] inpatient only procedure list (status C) due [...] 2:34 AM EDT Cardiac/Telemetry Nursing Progress Note [id number] ?? Subjective: Patient stated feeling well, improving everyday Objective: ?? Vital Signs: See Vital signs below ?? Cardiac Meds: See online MAR ?? Labs: See labs in online chart. ?? Assessment: Denies SOB, CP/N/V. Patient A&O with no complaints. HR 54-120. Plan: Continue telemetry monitoring. Notify MD of any changes. * Selma Torres RN - 05/14/2017 7:45 PM EDT Cardiac/Telemetry Nursing Progress Note [id number] Subjective: No, I don't have any pain. [...] GFR 15-29 ml/min ??? 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 director long term care current use of immunosuppressive [...] Cr. Also found to have new L [place] renal masses concerning for underlying malignancy. #TRISTIAN [...] 2 large bore IV access ? #L [place] Renal masses #Weight loss: Gives history of [...] negative -Results of colonoscopy from 02/2017 @ [place], [place] by Dr. Michaud obtained: normal colonoscopy [...] TRISTIAN, and UGIB Team Pager( Coverage 01/02): #[phone] PCP: Carroll Fuentes DO [phone] Attestation: IPI Certification I certify that I am a D-H credentialed attending provider with admitting privileges and that the patient meets or has met medical necessity to require an inpatient IPI level of care meeting a minimumof two midnights or is on the [facility] inpatient only procedure list (status C) due [...] PACs, HR up to 130 with activity, ID 0.16, QRS 0.09, RR 1.44, QT 0.38, [...] 7:49 PM EDT Cardiac/Telemetry Nursing Progress Note [id number] Subjective: No, I don't have any pain. [...] Dolan MD - 05/13/2017 11:50 AM EDT [facility] Medicine Attending Daily Progress Note Admit Date: [...] CMV -Results of colonoscopy from 02/2017 @ [place], [place] by Dr. Michaud obtained: normal colonoscopy [...] TRISTIAN, and UGIB Team Pager( Coverage 01/02): #[phone] PCP: Carroll Fuentes DO [phone] Attestation: IPI Certification I certify that I [...] [95 %-97 %] Cardiac/Telemetry Nursing Progress Note [id number] Subjective: Pt asymptomatic, denies chest pain, dizziness, nausea, and palpitations. Objective: Vital Signs: See Vital signs below Cardiac Meds: See online MAR Labs: See labs in online chart. Assessment: Pt predominately in sinus rhythm, bradycardic, HR 45-60, tachy into the 120s with activity, rare blocked beats, rare PACs. Pt had 2.8 sec pause. ID 0.18, QRS 0.12, RR 1.16, QT 0.44, [...] and UGIB ?? Team Pager( Coverage 01/02): #[phone] PCP: Carroll Fuentes DO [phone] Attestation: IPI Certification I certify that I [...] [97 %-100 %] Cardiac/Telemetry Nursing Progress Note [id number] Subjective: Pt denies chest pain, SOB, and palpitations. Intermittent nausea. Objective: Vital Signs: See Vital signs below Cardiac Meds: See online MAR Labs: See labs in online chart. Assessment: Pt bradycardic, SR, Rare PACs, HR 55- 90, ID 0.20, R 1.11, QT 0.44, QTc 0.41 [...] ml/min N18.4 ??? 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 [facility] current use of immunosuppressive drug Z79.899 ??? [...] disease ID: 56 y.o. Male presents to [facility] with TRISTIAN History of Present Illness: HPI [...] Had a screening colonoscopy in 02/[address] in [facility] by [address] Saab (sp?). Denies any [...] TRUNK performed by SABRINA SANCHEZ at [facility] OR ??? PRO REPAIR INTERMEDIATE S/A/T/E 2.6-7.5 CM 04/19/2012 REPAIR INTERMEDIATE WOUND, (NO HANDS OR FEET) 2.6 TO 7.5CM, UPPER EXTREMITY performed by SABRINA SANCHEZ at [facility] OR ? ? PRO SPLIT GRFT, HEAD, FAC, HAND, FEET <100SQCM N/A 02/20/2016 SPLIT THICKNESS SKIN SPLIT GRAFT,100SQ CM OR LESS, NECK performed by Miguel Angel Moreno MD at [facility] OR ??? PRO VASCULAR SURGERY PROCEDURE UNLIST Left 11/20/2015 LIGATION\REPAIR AV FISTULA performed by Camilo Ireland MD at [facility] OR ??? PRO VASCULAR SURGERY PROCEDURE UNLIST Left 11/20/2015 EXCISION VEIN FROM HAND performed by Camilo Ireland MD at [facility] OR ??? 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 [...] EVALUATION: * Consult Note - Nell Page [facility] - 05/15/2017 11:26 AM EDT [...] booklet provided: Yes AVS documentation: In Progress [facility] documents attached to AVS: Vitamin K Diet, Warfarin Thank you very much for the consult. We will continue to dose and monitor warfarin daily. If there is a change in medical condition that warrants discontinuation of warfarin, please discontinue the pharmacy warfarin consult and communicate this to the pharmacy warfarin management service. Pharmacy warfarin management service pager: #[phone] NELL PAGE RPH * Plan of Care [...] ml/min N18.4 ??? 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 [facility] current use of immunosuppressive drug Z79.899 ??? [...] encounter: 71.3 kg (157 lb 3.2 oz). [place] body weight: 73 kg (160 lb 15 oz) Estimated needs: Calories: 1138-9865 (25-30 kcal/kg) Protein: 85-100 grams (1.2- 1.5 [...] further discussion upon diet advancement. Danette Armas Pediatric Surgeon * Consult Note - Bhargav Pino RPH [...] booklet provided: Yes AVS documentation: In Progress [employer] documents attached to AVS: Vitamin K Diet, Warfarin Thank you very much for the consult. We will continue to dose and monitor warfarin daily. If there is a change in medical condition that warrants discontinuation of warfarin, please discontinue the pharmacy warfarin consult and communicate this to the pharmacy warfarin management service. Pharmacy warfarin management service pager: [phone] BHARGAV PINO RPH * Plan of Care [...] EVALUATION: * Consult Note - Bhargav Pino, [facility] - 05/13/2017 3:01 PM EDT [...] management service. Pharmacy warfarin management service pager: [phone] BHARGAV PINO RPH * Plan of Care [...] Hepatology Inpatient Consultation Christy Ginna Ambrose [phone] PCP: Carroll Fuentes DO Date of Admission: [...] ml/min N18.4 ??? 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 director long term care current use of immunosuppressive drug Z79.899 ??? [...] TRUNK performed by SABRINA SANCHEZ at [facility] OR ??? PRO REPAIR INTERMEDIATE S/A/T/E 2.6-7.5 CM 04/19/2012 REPAIR INTERMEDIATE WOUND, (NO HANDS OR FEET) 2.6 TO 7.5CM, UPPER EXTREMITY performed by SABRINA SANCHEZ at [facility] OR [...] HAND performed by Camilo Ireland MD at [facility] OR ??? US RENAL TRANSPLANT [...] total. * Consult Note - Bhargav Pino [facility] - 05/12/2017 1:03 PM EDT [...] management service. Pharmacy warfarin management service pager: [phone] BHARGAV PINO RPH * Consult Note - [...] mass index is 22.56 kg/(m^2). Current bed: [facility] emergency department Assessment: Pt with abrasion to left medial [...] chair to 2 hour intervals. Use a [employer] chair cushion beneath patient at all times while in the chair. Reinforce teaching to shift weight every 15 minutes while in the chair. Wound care will follow weekly. Discussed plan with: RN: Ilda Please contact MEAGHAN HOOD RN on pager [phone] or the wound care team at [phone] or pager [phone] with skin and wound care concerns or [...] n/a Primary Care Provider: Carroll Fuentes DO [phone] Patient/Caregiver Goals of Treatment: Go home once [...] of care planning. Karuna Lawton RN Pager: [phone] * Plan of Care - Mayra Hernandez [...] stage 4, GFR 15-29 ml/min Prophylactic immunotherapy [facility] current use of immunosuppressive drug H/O kidney transplant Ordered: 05/16/2017 documented as of this encounter Procedures Procedure Name Priority Date/Time Associated Diagnosis Comments LAB SCAN 05/17/2017 12:00 AM EST FOREIGN LANGUAGE PROFESSOR SCAN 05/17/2017 12:00 AM EST HEMOGRAM Routine [...] SCAN EXT O RDR/RSLT * SCAN DOC: FOREIGN LANGUAGE PROFESSOR (05/17/2017 12:00 AM EST) Anatomical Region Laterality Modality Other Narrative 05/17/2017 12:00 AM EST Ordered by an unspecified provider. Scanning Provider MEDIA MGR SCAN EXT O RDR/RSLT * (ABNORMAL) Differential, Automated (05/16/2017 4:56 AM EST) Neutrophil % 76.5 % [facility] Neutrophil Absolute 2.69 1.70 - 6.10 x10(3)/mc L [facility] Lymph % 9.9 % [facility] Lymphocytes Abs 0.4(L) 0.9 - 3.2 x10(3)/mc L [facility] Monocyte % 10.5 % [facility] Monocyte Abs 0.4 0.3 - 0.9 x10(3)/mc L [facility] Eos % 2.8 % [facility] Eosinophils Abs 0.1 0.0 - 0.4 x10(3)/mc L [facility] Basophil % 0.0 % [facility] Baso Absolute 0.0 0.0 - 0.1 x10(3)/mc L [facility] Immature Gran % 0.30 % [facility] Comment: Immature granulocytes(IG's)percentage and absolute count will include metamyelocytes, myelocytes, and promyelocytes. Blood smears from CBCs yielding IG's will be scanned manually for concordance. If this scan disagrees with the automated IG or if promyelocytes are noted, a manual differential will be performed. Immature Gran Absolute 0.01 0.00 - 0.04 x10(3)/ L [facility] Blood specimen (specimen) 05/16/2017 4:56 AM EST 05/16/2017 5:28 AM EST Narrative Resulting Agency Comment Spec In Lab Abner Adames MD HEMATOLOGY ORDERABLE S [facility] [place] [address] * (ABNORMAL) Hemogram (05/16/2017 4:56 AM EST) White Blood Cell 3.5(L) 4.0 - 9.5 x10(3)/[facility] Red Blood Cell 2.79(L) 4.58 - 5.54 x10(6)/[facility] Hemoglobin 8.4(L) 13.7 - 16.5 gm/dL [facility] Hematocrit 24.3(L) 40.5 - 48.5 % [facility] Mean Cell Volume 87.1 82.9 - 93.1 fL [facility] Mean Cell Hemoglobin 30.1 27.5 - 32.1 pg [facility] Mean Cell Hemoglobin Concentration 34.6 32.0 - 35.7 gm/dL [facility] Platelet 160 145 - 357 x10(3)/[facility] RDW Standard Deviation 46.2(H) 36.0 - 45.0 [facility] RDW coefficient of variation 14.6(H) 11.4 - 13.8 % [facility] Mean Platelet Volume 9.9 7.6 - 12.9 [facility] NRBC% auto 0.0 % [facility] NRBC Absolute 0.000 0.000 - 0.000 x10(3)/[facility] Blood specimen (specimen) 05/16/2017 4:56 AM EST 05/16/2017 5:28 AM EST Narrative Resulting Agency Comment Spec In Lab Abner Adames MD HEMATOLOGY ORDERABLE S Performing Organization Address City/[facility]/ZIP Co de Phone Number [facility] [place] [address] * Phosphorus (05/16/2017 4:56 AM EST) Phosphorus 2.6 2.5 - 4.5 mg/dL [facility] Blood specimen (specimen) 05/16/2017 4:56 AM EST 05/16/2017 5:28 AM EST Narrative Resulting Agency Comment Spec In Lab Abner Adames MD CHEMISTRY ORDERABLES Performing Organization Address [facility] [[email or web address]] Co de Phone Number [facility] [place] [address] * (ABNORMAL) Magnesium (05/16/2017 4:56 AM EST) Magnesium 0.58(L) 0.69 - 1.07 mmol/L [facility] Blood specimen (specimen) 05/16/2017 4:56 AM EST 05/16/2017 5:28 AM EST Narrative Resulting Agency Comment Spec In Lab Abner Adames MD CHEMISTRY ORDERABLES Performing Organization Address City/[facility]/ZIP Co de Phone Number [facility] [place] [address] * (ABNORMAL) Basic Metabolic Panel (non-fasting) (05/16/2017 4:56 AM EST) Glucose 101 65 - 199 mg/dL [facility] Comment:Diabetes: >=200 mg/d L plus symptoms Blood Urea Nitrogen 32(H) 10 - 20 mg/dL [facility] Creatinine 2.20(H) 0.80 - 1.50 mg/dL [facility] Sodium 139 135 - 145 mmol/L [facility] Potassium 3.7 3.5 - 5.0 mmol/L [facility] Comment: Please note: ??Patients with WBC >100,000 may have falsely elevated Potassium levels. ??For accurate Potassium quantification in these patients send serum separator tube (gold top) for subsequent determinations. ??Contact the Clinical Chemistry Laboratory if there are any questions. Chloride 105 98 - 107 mmol/L [facility] Carbon Dioxide 20(L) 22 - 31 mmol/L [facility] Anion Gap 14 5 - 15 mmol/L [facility] Calcium 7.5(L) 8.5 - 10.5 mg/dL [facility] Est Glomerular Filtration Rate 31(L) >=60 [facility] Comment: The reported eGFR should be multiplied by 1.2 for patients. The MDRD is not an appropriate measure of renal function for patients with body mass extremes or in patients with acute kidney failure. http://[employer]/DHnkdep http://[employer]/DHMCnkf Blood specimen (specimen) 05/16/2017 4:56 AM EST 05/16/2017 5:28 AM EST Narrative Resulting Agency Comment Spec In Lab Abner Adames MD CHEMISTRY ORDERABLES [facility] [place] [address] * (ABNORMAL) Prothrombin Time (05/16/2017 4:56 AM EST) Prothrombin Time 14.2(H) 11.8 - 14.0 sec [facility] International Normalization Ratio 1.1 0.9 - 1.1 [facility] Comment: An INR <2.0 indicates [...] MD HEMATOLOGY ORDERABL ES Performing Organization Address [facility] [[email or web address]] Co de Phone Number [facility] [place] [address] * (ABNORMAL) Hepatic Function Panel (05/15/2017 8:44 AM EDT) [facility] Protein, Total 5.0(L) 6.1 - 8.0 gm/dL [facility] Albumin 3.0(L) 3.2 - 5.2 gm/dL [facility] Aspartate Aminotransferase 12 0 - 39 unit/L [facility] Alanine Aminotransferase 10 0 - 55 unit/L [facility] Alkaline Phosphatase 103 40 - 120 unit/L [facility] Bilirubin, Total 0.6 0.2 - 1.3 mg/dL [facility] Bilirubin, Direct 0.2 0.0 - 0.3 mg/dL [facility] Blood specimen (specimen) Venous Draw / Unknown 05/15/2017 8:44 AM EDT 05/15/2017 8:53 AM EDT Narrative Resulting Agency Comment Spec In Lab Jesenia Dolan MD CHEMISTRY ORDERABLE S Performing Organization Address [facility] [[email or web address]] Co de Phone Number [facility] [place] [address] * (ABNORMAL) Differential, Automated (05/15/2017 8:44 AM EDT) [facility] Neutrophil % 67.0 % [facility] Neutrophil Absolute 2.04 1.70 - 6.10 x10(3)/mc L [facility] Lymph % 15.7 % [facility] Lymphocytes Abs 0.5(L) 0.9 - 3.2 x10(3)/mc L [facility] Monocyte % 12.1 % [facility] Monocyte Abs 0.4 0.3 - 0.9 x10(3)/[facility] Eos % 4.9 % [facility] Eosinophils Abs 0.2 0.0 - 0.4 x10(3)/[facility] Basophil % 0.0 % [facility] Baso Absolute 0.0 0.0 - 0.1 x10(3)/[facility] Immature Gran % 0.30 % [facility] Comment: Immature granulocytes(IG's)percentage and absolute count will include metamyelocytes, myelocytes, and promyelocytes. Blood smears from CBCs yielding IG's will be scanned manually for concordance. If this scan disagrees with the automated IG or if promyelocytes are noted, a manual differential will be performed. Immature Gran Absolute 0.01 0.00 - 0.04 x10(3)/[facility] Blood specimen (specimen) 05/15/2017 8:44 AM EDT 05/15/2017 8:52 AM EDT Narrative Resulting Agency Comment Spec In Lab Jesenia Dolan MD HEMATOLOGY ORDERABL ES [facility] [place] [address] * (ABNORMAL) Hemogram (05/15/2017 8:44 AM EDT) White Blood Cell 3.0(L) 4.0 - 9.5 x10(3)/[facility] Red Blood Cell 2.92(L) 4.58 - 5.54 x10(6)/[facility] Hemoglobin 8.8(L) 13.7 - 16.5 gm/dL [facility] Hematocrit 24.9(L) 40.5 - 48.5 % [facility] Mean Cell Volume 85.3 82.9 - 93.1 fL [facility] Mean Cell Hemoglobin 30.1 27.5 - 32.1 pg [facility] Mean Cell Hemoglobin Concentration 35.3 32.0 - 35.7 gm/dL [facility] Platelet 167 145 - 357 x10(3)/mc L [facility] RDW Standard Deviation 45.6(H) 36.0 - 45.0 [facility] RDW coefficient of variation 14.8(H) 11.4 - 13.8 % [facility] Mean Platelet Volume 9.7 7.6 - 12.9 fL [facility] NRBC% auto 0.0 % [facility] NRBC Absolute 0.000 0.000 - 0.000 x10(3)/mc L [facility] Blood specimen (specimen) 05/15/2017 8:44 AM EDT 05/15/2017 8:52 AM EDT Narrative Resulting Agency Comment Spec In Lab Jesenia Dolan MD HEMATOLOGY ORDERABL ES Performing Organization Address [facility] de Phone Number [facility] [place] [address] * (ABNORMAL) Prothrombin Time (05/15/2017 8:44 AM EDT) Prothrombin Time 14.7(H) 11.8 - 14.0 sec [facility] International Normalization Ratio 1.2(H) 0.9 - 1.1 [facility] Comment: An INR <2.0 indicates [...] MD HEMATOLOGY ORDERABL ES Performing Organization Address [facility] [[email or web address]] Co de Phone Number [facility] [place] [address] * Magnesium (05/15/2017 8:44 AM EDT) Magnesium 0.72 0.69 - 1.07 mmol/L [facility] Blood specimen (specimen) 05/15/2017 8:44 AM EDT 05/15/2017 8:52 AM EDT Narrative Resulting Agency Comment Spec In Lab Jesenia Dolan MD CHEMISTRY ORDERABLE S [facility] [place] [address] * (ABNORMAL) Basic Metabolic Panel (non-fasting) (05/15/2017 8:44 AM EDT) Pathologist [facility] Glucose 120 65 - 199 mg/dL [facility] Comment:Diabetes: >=200 mg/d L plus symptoms Blood Urea Nitrogen 37(H) 10 - 20 mg/dL [facility] Creatinine 2.52(H) 0.80 - 1.50 mg/dL [facility] Sodium 140 135 - 145 mmol/L [facility] Potassium 3.6 3.5 - 5.0 mmol/L [facility] Comment: Please note: ??Patients with WBC >100,000 may have falsely elevated Potassium levels. ??For accurate Potassium quantification in these patients send serum separator tube (gold top) for subsequent determinations. ??Contact the Clinical Chemistry Laboratory if there are any questions. Chloride 108(H) 98 - 107 mmol/L [facility] Carbon Dioxide 18(L) 22 - 31 mmol/L [facility] Anion Gap 14 5 - 15 mmol/L [facility] Calcium 7.6(L) 8.5 - 10.5 mg/dL [facility] Est Glomerular Filtration Rate 27(L) >=60 [facility] Comment: The reported eGFR should be multiplied by 1.2 for patients. The MDRD is not an appropriate measure of renal function for patients with body mass extremes or in patients with acute kidney failure. http://[employer]/DHnkdep http://[employer]/DHMCnkf Blood specimen (specimen) 05/15/2017 8:44 AM EDT 05/15/2017 8:52 AM EDT Narrative Resulting Agency Comment Spec In Lab Jesenia Dolan MD CHEMISTRY ORDERABLE S [facility] [place] [address] * (ABNORMAL) Differential, Automated (05/14/2017 6:26 PM EDT) Neutrophil % 63.6 % [facility] Neutrophil Absolute 1.85 1.70 - 6.10 x10(3)/mc L [facility] Lymph % 18.9 % [facility] Lymphocytes Abs 0.6(L) 0.9 - 3.2 x10(3)/mc L [facility] Monocyte % 13.1 % [facility] Monocyte Abs 0.4 0.3 - 0.9 x10(3)/mc L [facility] Eos % 3.8 % [facility] Eosinophils Abs 0.1 0.0 - 0.4 x10(3)/mc L [facility] Basophil % 0.3 % [facility] Baso Absolute 0.0 0.0 - 0.1 x10(3)/mc L [facility] Immature Gran % 0.30 % [facility] Comment: Immature granulocytes(IG's)percentage and absolute count will include metamyelocytes, myelocytes, and promyelocytes. Blood smears from CBCs yielding IG's will be scanned manually for concordance. If this scan disagrees with the automated IG or if promyelocytes are noted, a manual differential will be performed. Immature Gran Absolute 0.01 0.00 - 0.04 x10(3)/mc L [facility] Blood specimen (specimen) 05/14/2017 6:26 PM EDT 05/14/2017 6:40 PM EDT Narrative Resulting Agency Comment Spec In Lab Jesenia Dolan MD HEMATOLOGY ORDERABL ES [facility] [place] [address] * (ABNORMAL) Hemogram (05/14/2017 6:26 PM EDT) White Blood Cell 2.9(L) 4.0 - 9.5 x10(3)/[facility] LAB[facility] Red Blood Cell 2.76(L) 4.58 - 5.54 x10(6)/mc [facility] Hemoglobin 8.0(L) 13.7 - 16.5 gm/dL [facility] Hematocrit 23.6(L) 40.5 - 48.5 % [facility] Mean Cell Volume 85.5 82.9 - 93.1 fL [facility] Mean Cell Hemoglobin 29.0 27.5 - 32.1 pg [facility] Mean Cell Hemoglobin Concentration 33.9 32.0 - 35.7 gm/dL [facility] Platelet 172 145 - 357 x10(3)/mc L [facility] RDW Standard Deviation 45.6(H) 36.0 - 45.0 [facility] RDW coefficient of variation 15.1(H) 11.4 - 13.8 % [facility] Mean Platelet Volume 10.3 7.6 - 12.9 [facility] NRBC% auto 0.0 % [facility] NRBC Absolute 0.000 0.000 - 0.000 x10(3)/[facility] LAB[facility]ORY Blood specimen (specimen) 05/14/2017 6:26 PM EDT 05/14/2017 6:40 PM EDT Narrative Resulting Agency Comment Spec In Lab Jesenia Dolan MD HEMATOLOGY ORDERABL ES Performing Organization Address [facility] [[email or web address]] Co de Phone Number [facility] [place] [address] * (ABNORMAL) Basic Metabolic Panel (non-fasting) (05/14/2017 6:26 PM EDT) Glucose 112 65 - 199 mg/dL [facility] Comment:Diabetes: >=200 mg/d L plus symptoms Blood Urea Nitrogen 44(H) 10 - 20 mg/dL [facility] Creatinine 2.70(H) 0.80 - 1.50 mg/dL [facility] Sodium 139 135 - 145 mmol/L [facility] Potassium 3.3(L) 3.5 - 5.0 mmol/L [facility] mmol/L [facility] Anion Gap 13 5 - 15 mmol/L [facility] Calcium 7.4(L) 8.5 - 10.5 mg/dL [facility] Est Glomerular Filtration Rate 25(L) >=60 [facility] Comment: The reported eGFR should be multiplied by 1.2 for patients. The MDRD is not an appropriate measure of renal function for patients with body mass extremes or in patients with acute kidney failure. http://[employer]/DHnkdep http://[employer]/DHMCnkf Blood specimen (specimen) 05/14/2017 6:26 PM EDT 05/14/2017 6:40 PM EDT Narrative Resulting Agency Comment Spec In Lab Jesenia Dolan MD CHEMISTRY ORDERABLE S Performing Organization Address [facility] [[email or web address]] Co de Phone Number [facility] [place] [address] * US Retroperitoneal Complete (05/14/2017 3:35 PM EDT) Anatomical Region Laterality Modality Abdomen Ultrasound 05/14/2017 3:31 PM EDT Impressions 05/14/2017 4:51 PM EDT ??Echogenic atrophic [place] kidneys. Peripheral to a 2.5 cm left renal cyst are dual heterogeneous solid renal massesone of which shows trace peripheral flow in one of its shows small central flow.These are concerning for malignancy. ?Devi Hdez MD Electronically Signed Final Report ?? 05/14/2017 04:51 pm Narrative 05/14/2017 4:51 PM EDT Renal ? (Signed Final 05/14/2017 04:51 pm) PATIENT INFO: ID #: ? [id number] ?: ??[birth year] (56 yrs) Name: ? CHRISTY AMBROSE ?Visit Date: 05/14/2017 03:31 pm PERFORMED BY: Performed By: ? Brianna Becker RDMS Attending: ?Lemuel JONES, Devi Adams Referred By: ?JESENIA DOLAN Location: ? [place] SERVICE(S) PROVIDED: ??URETRO - Retroperitoneal Complete - [id number] ? [id number] INDICATIONS: ??Evaluate L renal mass, ? malignancy [...] 05/14/2017 04:51 pm) PATIENT INFO: ID #: [id number] : [birth year] (56 yrs) Name: CHRISTY AMBROSE Visit Date: 05/14/2017 03:31 pm PERFORMED BY: Performed By: Brianna Becker RDMS Attending: Devi Hdez MD Referred By: JESENIA DOLAN Location: [place] SERVICE(S) PROVIDED: URETRO - Retroperitoneal Complete - [id number] INDICATIONS: Evaluate L renal mass, ? malignancy [...] Partially distended, normal contour IMPRESSION Echogenic atrophic [place] kidneys. Peripheral to a 2.5 cm left [...] dilatation. Spleen: Normal. Adrenals: Normal. Kidneys: The [place] kidneys are severely atrophied. There are 3 well-circumscribed lesions projecting from the upper pole of the [place] left kidney. The smallest measures 2.0 cm [...] dilatation. Spleen: Normal. Adrenals: Normal. Kidneys: The [place] kidneys are severely atrophied. There are 3 [...] 6:09 AM EDT) [place] Antibody Neg Neg [facility] Blood specimen (specimen) 05/14/2017 6:09 AM EDT 05/15/2017 12:19 PM EDT Narrative Resulting Agency Comment Spec In Lab Jesenia Dolan MD IMMUNOLOGY ORDERABL ES [facility] [place] [address] * (ABNORMAL) Magnesium (05/14/2017 6:08 AM EDT) Magnesium 0.65(L) 0.69 - 1.07 mmol/L [facility] Blood specimen (specimen) Venous Draw / Unknown 05/14/2017 6:08 AM EDT 05/14/2017 6:39 AM EDT Narrative Resulting Agency Comment Spec In Lab Jesenia Dolan MD CHEMISTRY ORDERABLE S Performing Organization Address City/[facility]/ZIP Co de Phone Number [facility] [place] [address] * (ABNORMAL) Differential, Automated (05/14/2017 6:08 AM EDT) Neutrophil % 66.5 % [facility] Neutrophil Absolute 2.20 1.70 - 6.10 x10(3)/mc L [facility] Lymph % 15.1 % [facility] Lymphocytes Abs 0.5(L) 0.9 - 3.2 x10(3)/ L [facility] Monocyte % 14.5 % [facility] Monocyte Abs 0.5 0.3 - 0.9 x10(3)/ L [facility] Eos % 3.3 % [facility] Eosinophils Abs 0.1 0.0 - 0.4 x10(3)/[facility] LABORATORY Basophil % 0.3 % [facility] Baso Absolute 0.0 0.0 - 0.1 x10(3)/mc L [facility] Immature Gran % 0.30 % [facility] Comment: Immature granulocytes(IG's)percentage and absolute count will include metamyelocytes, myelocytes, and promyelocytes. Blood smears from CBCs yielding IG's will be scanned manually for concordance. If this scan disagrees with the automated IG or if promyelocytes are noted, a manual differential will be performed. Immature Gran Absolute 0.01 0.00 - 0.04 x10(3)/mc L [facility] Blood specimen (specimen) 05/14/2017 6:08 AM EDT 05/14/2017 6:36 AM EDT Narrative Resulting Agency Comment Spec In Lab Jesenia Dolan MD HEMATOLOGY ORDERABL ES Performing Organization Address [facility]/ZIP Co de Phone Number [facility] [place] [address] * (ABNORMAL) Hemogram (05/14/2017 6:08 AM EDT) White Blood Cell 3.3(L) 4.0 - 9.5 x10(3)/[facility] LABORATORY Red Blood Cell 2.74(L) 4.58 - 5.54 x10(6)/[facility] Hemoglobin 8.2(L) 13.7 - 16.5 gm/dL [facility] Hematocrit 23.2(L) 40.5 - 48.5 % [facility] Mean Cell Volume 84.7 82.9 - 93.1 fL [facility] Mean Cell Hemoglobin 29.9 27.5 - 32.1 pg [facility] Mean Cell Hemoglobin Concentration 35.3 32.0 - 35.7 gm/dL [facility] Platelet 158 145 - 357 x10(3)/[facility] LABORATORY RDW Standard Deviation 45.8(H) 36.0 - 45.0 [facility] RDW coefficient of variation 15.0(H) 11.4 - 13.8 % [facility] Mean Platelet Volume 9.9 7.6 - 12.9 [facility] NRBC% auto 0.0 % [facility] NRBC Absolute 0.000 0.000 - 0.000 x10(3)/[facility] Blood specimen (specimen) 05/14/2017 6:08 AM EDT 05/14/2017 6:36 AM EDT Narrative Resulting Agency Comment Spec In Lab Jesenia Dolan MD HEMATOLOGY ORDERABL ES [facility] [place] [address] * (ABNORMAL) Prothrombin Time (05/14/2017 6:08 AM EDT) Prothrombin Time 16.1(H) 11.8 - 14.0 sec [facility] International Normalization Ratio 1.3(H) 0.9 - 1.1 [facility] Comment: An INR <2.0 indicates [...] Lab Jesenia Dolan MD HEMATOLOGY ORDERABL ES [facility] [place] [address] * (ABNORMAL) Basic Metabolic Panel (non-fasting) (05/14/2017 6:08 AM EDT) Glucose 123 65 - 199 mg/dL [facility] Comment:Diabetes: >=200 mg/d L plus symptoms Blood Urea Nitrogen 54(H) 10 - 20 mg/dL [facility] Creatinine 3.14(H) 0.80 - 1.50 mg/dL [facility] Sodium 143 135 - 145 mmol/L [facility] Potassium 2.9(Criti constance) 3.5 - 5.0 mmol/L [facility] Comment: Results rechecked. Called by: [...] mmol/L [facility] Anion Gap 16(H) 5 - 15 mmol/L [facility] Calcium 7.4(L) 8.5 - 10.5 mg/dL [facility] Est Glomerular Filtration Rate 21(L) >=60 [facility] Comment: The reported eGFR should be multiplied by 1.2 for patients. The MDRD is not an appropriate measure of renal function for patients with body mass extremes or in patients with acute kidney failure. http://[employer]/DHnkdep http://[employer]/DHMCnkf Blood specimen (specimen) 05/14/2017 6:08 AM EDT 05/14/2017 6:36 AM EDT Narrative Resulting Agency Comment Spec In Lab Jesenia Dolan MD CHEMISTRY ORDERABLE S [facility] [place] [address] * (ABNORMAL) Differential, Automated (05/13/2017 8:26 PM EDT) Neutrophil % 72.2 % [facility] Neutrophil Absolute 2.57 1.70 - 6.10 x10(3)/mc L [facility] Lymph % 11.2 % [facility] Lymphocytes Abs 0.4(L) 0.9 - 3.2 x10(3)/mc L [facility] Monocyte % 14.6 % [facility] Monocyte Abs 0.5 0.3 - 0.9 x10(3)/mc L [facility] Eos % 1.4 % [facility] Eosinophils Abs 0.0 0.0 - 0.4 x10(3)/mc L [facility] Basophil % 0.3 % [facility] Baso Absolute 0.0 0.0 - 0.1 x10(3)/mc L [facility] Immature Gran % 0.30 % [facility] Comment: Immature granulocytes(IG's)percentage and absolute count will include metamyelocytes, myelocytes, and promyelocytes. Blood smears from CBCs yielding IG's will be scanned manually for concordance. If this scan disagrees with the automated IG or if promyelocytes are noted, a manual differential will be performed. Immature Gran Absolute 0.01 0.00 - 0.04 x10(3)/mc L [facility] Blood specimen (specimen) 05/13/2017 8:26 PM EDT 05/13/2017 8:35 PM EDT Narrative Resulting Agency Comment Spec In Lab Jesenia Dolan MD HEMATOLOGY ORDERABL ES [facility] [place] [address] * (ABNORMAL) Hemogram (05/13/2017 8:26 PM EDT) White Blood Cell 3.6(L) 4.0 - 9.5 x10(3)/[facility] LAB[facility] Red Blood Cell 3.01(L) 4.58 - 5.54 x10(6)/mc L [facility] Hemoglobin 8.9(L) 13.7 - 16.5 gm/dL [facility] Hematocrit 25.7(L) 40.5 - 48.5 % [facility] Mean Cell Volume 85.4 82.9 - 93.1 fL [facility] Mean Cell Hemoglobin 29.6 27.5 - 32.1 pg [facility] Mean Cell Hemoglobin Concentration 34.6 32.0 - 35.7 gm/dL [facility] Platelet 168 145 - 357 x10(3)/ L [facility] RDW Standard Deviation 47.4(H) 36.0 - 45.0 fL [facility] RDW coefficient of variation 15.3(H) 11.4 - 13.8 % [facility] Mean Platelet Volume 9.9 7.6 - 12.9 fL [facility] NRBC% auto 0.0 % [facility] NRBC Absolute 0.000 0.000 - 0.000 x10(3)/mc L [facility] Blood specimen (specimen) 05/13/2017 8:26 PM EDT 05/13/2017 8:35 PM EDT Narrative Resulting Agency Comment Spec In Lab Jesenia Dolan MD HEMATOLOGY ORDERABL ES Performing Organization Address [facility] [[email or web address]] Co de Phone Number [facility] [place] [address] * Tacrolimus level (05/13/2017 8:26 PM EDT) Tacrolimus <3.0 ng/mL [facility] Comment: Trough therapeutic: ??5-15 ng/mL Performed by ultra-performance liquid chromatography tandem mass spectrometry (UPLCMS/MS). This test was developed and its performance characteristics determined by [facility]. It has not been cleared or [...] MD CHEMISTRY ORDERABLE S Performing Organization Address [facility] Co de Phone Number [facility] [place] [address] * Cytomegalovirus Culture Esophagus (05/13/2017 6:27 PM EDT) Cytomegalovirus Culture No Cytomegalovirus isolated in cell culture [facility] Specimen from esophagus (specimen) 05/13/2017 6:27 PM EDT 05/13/2017 7:16 PM EDT Comment:EGD ESOPHAGEAL BIOPS IES, HX OF IMMUNOSUPPRESSION Narrative Resulting Agency Comment Spec In Lab Aditya Barrera MD MICROBIOLOGY - GENER AL ORDERABLES Performing Organization Address [facility] [[email or web address]] Co [place] [address] * Surgical Pathology Report (05/13/2017 5:55 PM EDT) Final Diagnosis [id number] ? Location: 3EST; 0330; A The signing pathologist has (i) examined the relevant preparation(s) for the specimen(s) and (ii) rendered or confirmed the diagnosis(es). . ?Surgical Pathology DIAGNOSIS Esophagus, ??biopsy: Reactive esophageal-gastric junctional mucosa ?with intestinal metaplasia ??(negative for dysplasia) and fibrinopurulent debris containing scattered bacteria. See discussion #1. Electronically signed by: ??Kristine JONES PhD, Edgar Chacko Verified: ??05/18/2017 ?Pathologist Performed at: ??-[facility] Dept. of Pathology, [place], [place] DISCUSSION 1. The findings are consistent with mckenna ?? 's esophagus in the proper clinical context. ??Special stain for fungi (GMS) is negative. CLINICAL INFORMATION Specimen Submitted: A - Biopsy esophagus Clinical History: v SPECIMEN PROCESSING A - Labeled/Fixative: Biopsy esophagus, formalin. Quantity/Size: Fragments, 0.3-0.4 cm. Tissue Description: Soft, smith-pink tissue. Sections/Processin g: (T1) ??pps 05/18/2017 2:39 PM EST [facility] GI Biopsy 05/13/2017 5:55 PM EDT 05/13/2017 5:55 PM EDT Aditya Barrera MD PATHOLOGY/CYTOLOGY O RDERABLES [facility] [place] [address] * Specimen to Pathology (surgical or derm) (05/13/2017 5:55 PM EDT) AP Specimen 05/13/2017 5:55 PM EDT 05/13/2017 5:55 PM EDT Narrative [facility] - 05/13/2017 5:55 PM EDT Specimen requisition ordered. ??Separate Pathology report to follow Jesenia Dolan MD PATHOLOGY/CYTOLOGY ORDERABLES Performing Organization Address [facility]/[place] [address] * (ABNORMAL) Magnesium (05/13/2017 1:44 PM EDT) [facility] Magnesium 0.59(L) 0.69 - 1.07 mmol/L [facility] Blood specimen (specimen) Venous Draw / Unknown 05/13/2017 1:44 PM EDT 05/13/2017 2:13 PM EDT Narrative Resulting Agency Comment Spec In Lab Jesenia Dolan MD CHEMISTRY ORDERABLE S Performing Organization Address City/[facility]/ZIP Co de Phone Number [facility] [place] [address] * (ABNORMAL) Differential, Automated (05/13/2017 1:44 PM EDT) [facility] Neutrophil % 67.5 % [facility] Neutrophil Absolute 2.07 1.70 - 6.10 x10(3)/mc L [facility] Lymph % 15.0 % [facility] Lymphocytes Abs 0.5(L) 0.9 - 3.2 x10(3)/mc L [facility] Monocyte % 15.3 % [facility] Monocyte Abs 0.5 0.3 - 0.9 x10(3)/mc L [facility] Eos % 1.6 % [facility] Eosinophils Abs 0.0 0.0 - 0.4 x10(3)/mc L [facility] Basophil % 0.3 % [facility] Baso Absolute 0.0 0.0 - 0.1 x10(3)/mc L [facility] Immature Gran % 0.30 % [facility] Comment: Immature granulocytes(IG's)percentage and absolute count will include metamyelocytes, myelocytes, and promyelocytes. Blood smears from CBCs yielding IG's will be scanned manually for concordance. If this scan disagrees with the automated IG or if promyelocytes are noted, a manual differential will be performed. Immature Gran Absolute 0.01 0.00 - 0.04 x10(3)/[facility] LABORATORY Blood specimen (specimen) 05/13/2017 1:44 PM EDT 05/13/2017 1:56 PM EDT Narrative Resulting Agency Comment Spec In Lab Jesenia Dolan MD HEMATOLOGY ORDERABL ES [facility] [place] [address] * (ABNORMAL) Hemogram (05/13/2017 1:44 PM EDT) White Blood Cell 3.1(L) 4.0 - 9.5 x10(3)/[facility] LAB[facility] Red Blood Cell 2.83(L) 4.58 - 5.54 x10(6)/[facility] Hemoglobin 8.3(L) 13.7 - 16.5 gm/dL [facility] Hematocrit 24.2(L) 40.5 - 48.5 % [facility] Mean Cell Volume 85.5 82.9 - 93.1 fL [facility] Mean Cell Hemoglobin 29.3 27.5 - 32.1 pg [facility] Mean Cell Hemoglobin Concentration 34.3 32.0 - 35.7 gm/dL [facility] Platelet 165 145 - 357 x10(3)/[facility] LABORATORY RDW Standard Deviation 46.0(H) 36.0 - 45.0 fL [facility] RDW coefficient of variation 14.8(H) 11.4 - 13.8 % [facility] Mean Platelet Volume 9.6 7.6 - 12.9 fL [facility] NRBC% auto 0.0 % [facility] NRBC Absolute 0.000 0.000 - 0.000 x10(3)/mc L [facility] Blood specimen (specimen) 05/13/2017 1:44 PM EDT 05/13/2017 1:56 PM EDT Narrative Resulting Agency Comment Spec In Lab Jesenia Dolan MD HEMATOLOGY ORDERABL ES [facility] [place] [address] * (ABNORMAL) Basic Metabolic Panel (non-fasting) (05/13/2017 1:44 PM EDT) Glucose 117 65 - 199 mg/dL [facility] Comment:Diabetes: >=200 mg/d L plus symptoms Blood Urea Nitrogen 64(H) 10 - 20 mg/dL [facility] Creatinine 3.56(H) 0.80 - 1.50 mg/dL [facility] Sodium 145 135 - 145 mmol/L [facility] Potassium 3.5 3.5 - 5.0 mmol/L [facility] Comment: Please note: ??Patients with WBC >100,000 may have falsely elevated Potassium levels. ??For accurate Potassium quantification in these patients send serum separator tube (gold top) for subsequent determinations. ??Contact the Clinical Chemistry Laboratory if there are any questions. Chloride 115(H) 98 - 107 mmol/L [facility] Carbon Dioxide 15(L) 22 - 31 mmol/L [facility] Anion Gap 15 5 - 15 mmol/L [facility] Calcium 7.9(L) 8.5 - 10.5 mg/dL [facility] Est Glomerular Filtration Rate 18(L) >=60 [facility] Comment: The reported eGFR should be multiplied by 1.2 for patients. The MDRD is not an appropriate measure of renal function for patients with body mass extremes or in patients with acute kidney failure. http://[employer]/DHnkdep http://[employer]/DHMCnkf Blood specimen (specimen) 05/13/2017 1:44 PM EDT 05/13/2017 1:56 PM EDT Narrative Resulting Agency Comment Spec In Lab Jesenia Dolan MD CHEMISTRY ORDERABLE S Performing Organization Address City/[facility] [facility]/ZIP Co de Phone Number [facility] [place] [address] * Tacrolimus level (05/13/2017 6:00 AM EDT) Tacrolimus <3.0 ng/mL [facility] Comment: Trough therapeutic: ??5-15 ng/mL Performed by ultra-performance liquid chromatography tandem mass spectrometry (UPLCMS/MS). This test was developed and its performance characteristics determined by [facility]. It has not been cleared or [...] MD CHEMISTRY ORDERABLE S Performing Organization Address [facility]/ZIP Co de Phone Number [facility] [place] [address] * (ABNORMAL) Magnesium (05/13/2017 6:00 AM EDT) Magnesium 0.65(L) 0.69 - 1.07 mmol/L [facility] Blood specimen (specimen) Venous Draw / Unknown 05/13/2017 6:00 AM EDT 05/13/2017 7:09 AM EDT Narrative Resulting Agency Comment Spec In Lab Jesenia Dolan MD CHEMISTRY ORDERABLE S Performing Organization Address [facility]/ZIP Co de Phone Number [facility] [place] [address] * (ABNORMAL) Differential, Automated (05/13/2017 6:00 AM EDT) Neutrophil % 59.7 % [facility] Neutrophil Absolute 1.73 1.70 - 6.10 x10(3)/mc L [facility] Lymph % 19.7 % [facility] Lymphocytes Abs 0.6(L) 0.9 - 3.2 x10(3)/mc L [facility] Monocyte % 16.6 % [facility] Monocyte Abs 0.5 0.3 - 0.9 x10(3)/mc L [facility] Eos % 3.4 % [facility] Eosinophils Abs 0.1 0.0 - 0.4 x10(3)/ L [facility] Basophil % 0.3 % [facility] Baso Absolute 0.0 0.0 - 0.1 x10(3)/mc L [facility] Immature Gran % 0.30 % [facility] Comment: Immature granulocytes(IG's)percentage and absolute count will include metamyelocytes, myelocytes, and promyelocytes. Blood smears from CBCs yielding IG's will be scanned manually for concordance. If this scan disagrees with the automated IG or if promyelocytes are noted, a manual differential will be performed. Immature Gran Absolute 0.01 0.00 - 0.04 x10(3)/mc L [facility] Blood specimen (specimen) 05/13/2017 6:00 AM EDT 05/13/2017 6:20 AM EDT Narrative Resulting Agency Comment Spec In Lab Jesenia Dolan MD HEMATOLOGY ORDERABL ES Performing Organization Address [facility]/ZIP Co de Phone Number [facility] [place] [address] * (ABNORMAL) Hemogram (05/13/2017 6:00 AM EDT) White Blood Cell 2.9(L) 4.0 - 9.5 x10(3)/[facility] Red Blood Cell 2.76(L) 4.58 - 5.54 x10(6)/[facility] Hemoglobin 8.2(L) 13.7 - 16.5 gm/dL [facility] Hematocrit 23.3(L) 40.5 - 48.5 % [facility] Mean Cell Volume 84.4 82.9 - 93.1 [facility] Mean Cell Hemoglobin 29.7 27.5 - 32.1 pg [facility] Mean Cell Hemoglobin Concentration 35.2 32.0 - 35.7 gm/dL [facility] Platelet 179 145 - 357 x10(3)/[facility] LABORATORY RDW Standard Deviation 45.3(H) 36.0 - 45.0 [facility] RDW coefficient of variation 15.0(H) 11.4 - 13.8 % [facility] Mean Platelet Volume 10.1 7.6 - 12.9 [facility] NRBC% auto 0.0 % [facility] NRBC Absolute 0.000 0.000 - 0.000 x10(3)/[facility] Blood specimen (specimen) 05/13/2017 6:00 AM EDT 05/13/2017 6:20 AM EDT Narrative Resulting Agency Comment Spec In Lab Jesenia Dolan MD HEMATOLOGY ORDERABL ES [facility] [place] [address] * CMV Antibody, IgM (05/13/2017 6:00 AM EDT) CMV IgM Negative Negative [facility] Blood specimen (specimen) 05/13/2017 6:00 AM EDT 05/13/2017 6:19 AM EDT Narrative Resulting Agency Comment Spec In Lab Anup Hawkins MD IMMUNOLOGY ORDERA BLES Performing Organization Address [facility] [[email or web address]] Co de Phone Number [facility] [place] [address] * CMV Antibody, IgG (05/13/2017 6:00 AM EDT) CMV IgG Negative Negative [facility] Blood specimen (specimen) 05/13/2017 6:00 AM EDT 05/13/2017 6:19 AM EDT Narrative Resulting Agency Comment Spec In Lab Anup Hawkins MD IMMUNOLOGY ORDERA BLES Performing Organization Address [facility] de Phone Number [facility] [place] [address] * (ABNORMAL) Prothrombin Time (05/13/2017 6:00 AM EDT) Pathologist [facility] Prothrombin Time 17.9(H) 11.8 - 14.0 sec [facility] Comment: An INR <2.0 indicates [...] International Normalization Ratio 1.5(H) 0.9 - 1.1 [facility] Blood specimen (specimen) 05/13/2017 6:00 AM EDT 05/13/2017 6:19 AM EDT Narrative Resulting Agency Comment Spec In Lab Jesenia Dolan MD HEMATOLOGY ORDERABL ES Performing Organization Address [facility] [[email or web address]] Co de Phone Number [facility] [place] [address] * CMV PCR, Quantitative (05/13/2017 6:00 AM EDT) CMV Quant (Numeric) <137 IU/mL [facility] CMV Quant (Interp) Result: Not Detected Sample: plasma Method: This quantitative real-time PCR assay was performed in the [facility] Molecular Pathology Laboratory using ??[employer]IN[employer]?? AmpliPrep/CHINMAY? ? TaqMan?? CMV Test ([employer] Linear Range: 137 IU/mL - 9,100,000 IU/mL (2.14 log ? 6.96 log IU/mL) Limit of Detection: 91 IU/mL (1.96 log IU/mL) [facility] Blood specimen (specimen) 05/13/2017 6:00 AM EDT 05/14/2017 12:12 PM EDT Narrative Resulting Agency Comment Spec In Lab Anup Hawkins MD MOLECULAR ORDERAB LES [facility] [place] [address] * (ABNORMAL) Basic Metabolic Panel (non-fasting) (05/13/2017 6:00 AM EDT) Pathologist [facility] Glucose 102 65 - 199 mg/dL [facility] Comment:Diabetes: >=200 mg/d L plus symptoms Blood Urea Nitrogen 67(H) 10 - 20 mg/dL [facility] Creatinine 3.87(H) 0.80 - 1.50 mg/dL [facility] Sodium 147(H) 135 - 145 mmol/L [facility] Potassium 3.5 3.5 - 5.0 mmol/L [facility] Comment: Please note: ??Patients with WBC >100,000 may have falsely elevated Potassium levels. ??For accurate Potassium quantification in these patients send serum separator tube (gold top) for subsequent determinations. ??Contact the Clinical Chemistry Laboratory if there are any questions. Chloride 116(H) 98 - 107 mmol/L [facility] Carbon Dioxide 15(L) 22 - 31 mmol/L [facility] Anion Gap 16(H) 5 - 15 mmol/L [facility] Calcium 7.5(L) 8.5 - 10.5 mg/dL [facility] Est Glomerular Filtration Rate 16(L) >=60 [facility] Comment: The reported eGFR should be multiplied by 1.2 for patients. The MDRD is not an appropriate measure of renal function for patients with body mass extremes or in patients with acute kidney failure. http://[employer]/DHnkdep http://[employer]/DHMCnkf Blood specimen (specimen) 05/13/2017 6:00 AM EDT 05/13/2017 6:19 AM EDT Narrative Resulting Agency Comment Spec In Lab Jesenia Dolan MD CHEMISTRY ORDERABLE S [facility] [place] [address] * (ABNORMAL) Differential, Automated (05/12/2017 11:49 PM EDT) Neutrophil % 62.9 % [facility] Neutrophil Absolute 1.90 1.70 - 6.10 x10(3)/mc L [facility] Lymph % 18.9 % [facility] Lymphocytes Abs 0.6(L) 0.9 - 3.2 x10(3)/mc L [facility] Monocyte % 15.9 % [facility] Monocyte Abs 0.5 0.3 - 0.9 x10(3)/mc L [facility] Eos % 2.0 % [facility] Eosinophils Abs 0.1 0.0 - 0.4 x10(3)/mc L [facility] Basophil % 0.0 % [facility] Baso Absolute 0.0 0.0 - 0.1 x10(3)/mc L [facility] Immature Gran % 0.30 % [facility] Comment: Immature granulocytes(IG's)percentage and absolute count will include metamyelocytes, myelocytes, and promyelocytes. Blood smears from CBCs yielding IG's will be scanned manually for concordance. If this scan disagrees with the automated IG or if promyelocytes are noted, a manual differential will be performed. Immature Gran Absolute 0.01 0.00 - 0.04 x10(3)/mc L [facility] Blood specimen (specimen) 05/12/2017 11:49 PM EDT 05/12/2017 11:55 PM EDT Narrative Resulting Agency Comment Spec In Lab Jesenia Dolan MD HEMATOLOGY ORDERABL ES [facility] [place] [address] * (ABNORMAL) Hemogram (05/12/2017 11:49 PM EDT) White Blood Cell 3.0(L) 4.0 - 9.5 x10(3)/mc L [facility] Red Blood Cell 2.74(L) 4.58 - 5.54 x10(6)/mc L [facility] Hemoglobin 8.1(L) 13.7 - 16.5 gm/dL [facility] Hematocrit 23.1(L) 40.5 - 48.5 % [facility] Mean Cell Volume 84.3 82.9 - 93.1 [facility] Mean Cell Hemoglobin 29.6 27.5 - 32.1 pg [facility] Mean Cell Hemoglobin Concentration 35.1 32.0 - 35.7 gm/dL [facility] Platelet 166 145 - 357 x10(3)/mc L [facility] RDW Standard Deviation 44.8 36.0 - 45.0 [facility] RDW coefficient of variation 14.7(H) 11.4 - 13.8 % [facility] Mean Platelet Volume 10.1 7.6 - 12.9 [facility] NRBC% auto 0.0 % [facility] NRBC Absolute 0.000 0.000 - 0.000 x10(3)/mc L [facility] Blood specimen (specimen) 05/12/2017 11:49 PM EDT 05/12/2017 11:55 PM EDT Narrative Resulting Agency Comment Spec In Lab Jesenia Dolan MD HEMATOLOGY ORDERABL ES [facility] [place] [address] * (ABNORMAL) Basic Metabolic Panel (non-fasting) (05/12/2017 11:49 PM EDT) Glucose 102 65 - 199 mg/dL [facility] Comment:Diabetes: >=200 mg/d L plus symptoms Blood Urea Nitrogen 71(H) 10 - 20 mg/dL [facility] Creatinine 4.11(H) 0.80 - 1.50 mg/dL [facility] Sodium 144 135 - 145 mmol/L [facility] Potassium 3.4(L) 3.5 - 5.0 mmol/L [facility] Comment: Please note: ??Patients with WBC >100,000 may have falsely elevated Potassium levels. ??For accurate Potassium quantification in these patients send serum separator tube (gold top) for subsequent determinations. ??Contact the Clinical Chemistry Laboratory if there are any questions. Chloride 113(H) 98 - 107 mmol/L [facility] Carbon Dioxide 14(L) 22 - 31 mmol/L [facility] Anion Gap 17(H) 5 - 15 mmol/L [facility] Calcium 7.5(L) 8.5 - 10.5 mg/dL [facility] Est Glomerular Filtration Rate 15(L) >=60 [facility] Comment: The reported eGFR should be multiplied by 1.2 for patients. The MDRD is not an appropriate measure of renal function for patients with body mass extremes or in patients with acute kidney failure. http://[employer]/DHnkdep http://[employer]/DHMCnkf Blood specimen (specimen) 05/12/2017 11:49 PM EDT 05/12/2017 11:55 PM EDT Narrative Resulting Agency Comment Spec In Lab Jesenia Dolan MD CHEMISTRY ORDERABLE S Performing Organization Address City/[facility]/ZIP Co de Phone Number [facility] [place] [address] * Transfuse RBC (05/12/2017 11:03 PM EDT) [...] RBC (05/12/2017 2:11 PM EDT) Dispensed? Yes [facility] Blood specimen (specimen) No Charge / Unknown 05/12/2017 2:11 PM EDT 05/12/2017 2:11 PM EDT Narrative Resulting Agency Comment Spec In Lab Jesenia Dolan MD BLOOD BANK PRODUCT ORDERABLES Performing Organization Address City/[facility]/[place] [address] * Prepare RBC (05/12/2017 2:10 PM EDT) Dispensed? Yes [facility] Blood specimen (specimen) 05/12/2017 2:10 PM EDT 05/12/2017 2:06 PM EDT Narrative Resulting Agency Comment Spec In Lab Jesenia Dolan MD BLOOD BANK PRODUCT ORDERABLES Performing Organization Address [facility] [[email or web address]] Co de Phone Number [facility] [place] [address] * Prepare thawed plasma (05/12/2017 2:05 PM EDT) Dispensed? Yes [facility] Blood specimen (specimen) 05/12/2017 2:05 PM EDT 05/12/2017 2:06 PM EDT Narrative Resulting Agency Comment Spec In Lab Jesenia Dolan MD BLOOD BANK PRODUCT ORDERABLES Performing Organization Address [facility] [place] [address] * (ABNORMAL) Prothrombin Time (05/12/2017 2:02 PM EDT) Prothrombin Time 27.5(H) 11.8 - 14.0 sec [facility] Comment: An INR <2.0 indicates [...] International Normalization Ratio 2.6(H) 0.9 - 1.1 [facility] Blood specimen (specimen) 05/12/2017 2:02 PM EDT 05/12/2017 2:20 PM EDT Narrative Resulting Agency Comment Spec In Lab Jesenia Dolan MD HEMATOLOGY ORDERABL ES Performing Organization Address [facility] Co de Phone Number [facility] [place] [address] * (ABNORMAL) Magnesium (05/12/2017 11:56 AM EDT) Magnesium 0.61(L) 0.69 - 1.07 mmol/L [facility] Blood specimen (specimen) Venous Draw / Unknown 05/12/2017 11:56 AM EDT 05/12/2017 12:15 PM EDT Narrative Resulting Agency Comment Spec In Lab Jesenia Dolan MD CHEMISTRY ORDERABLE S [facility] [place] [address] * (ABNORMAL) Differential, Automated (05/12/2017 11:56 AM EDT) Neutrophil % 69.2 % [facility] Neutrophil Absolute 2.04 1.70 - 6.10 x10(3)/mc L [facility] Lymph % 13.9 % [facility] Lymphocytes Abs 0.4(L) 0.9 - 3.2 x10(3)/ L [facility] Monocyte % 14.9 % [facility] Monocyte Abs 0.4 0.3 - 0.9 x10(3)/mc L [facility] Eos % 1.4 % [facility] Eosinophils Abs 0.0 0.0 - 0.4 x10(3)/ L [facility] Basophil % 0.3 % [facility] Baso Absolute 0.0 0.0 - 0.1 x10(3)/mc L [facility] Immature Gran % 0.30 % [facility] Comment: Immature granulocytes(IG's)percentage and absolute count will include metamyelocytes, myelocytes, and promyelocytes. Blood smears from CBCs yielding IG's will be scanned manually for concordance. If this scan disagrees with the automated IG or if promyelocytes are noted, a manual differential will be performed. Immature Gran Absolute 0.01 0.00 - 0.04 x10(3)/mc L [facility] Blood specimen (specimen) 05/12/2017 11:56 AM EDT 05/12/2017 12:11 PM EDT Narrative Resulting Agency Comment Spec In Lab Jesenia Dolan MD HEMATOLOGY ORDERABL ES [facility] [place] [address] * (ABNORMAL) Hemogram (05/12/2017 11:56 AM EDT) White Blood Cell 3.0(L) 4.0 - 9.5 x10(3)/[facility] Red Blood Cell 2.49(L) 4.58 - 5.54 x10(6)/mc [facility] Hemoglobin 6.9(L) 13.7 - 16.5 gm/dL [facility] Hematocrit 21.6(L) 40.5 - 48.5 % [facility] Mean Cell Volume 86.7 82.9 - 93.1 [facility] Mean Cell Hemoglobin 27.7 27.5 - 32.1 pg [facility] Mean Cell Hemoglobin Concentration 31.9(L) 32.0 - 35.7 gm/dL [facility] Platelet 193 145 - 357 x10(3)/[facility] RDW Standard Deviation 48.7(H) 36.0 - 45.0 [facility] RDW coefficient of variation 15.4(H) 11.4 - 13.8 % [facility] Mean Platelet Volume 10.4 7.6 - 12.9 [facility] NRBC% auto 0.0 % [facility] NRBC Absolute 0.000 0.000 - 0.000 x10(3)/[facility] Blood specimen (specimen) 05/12/2017 11:56 AM EDT 05/12/2017 12:11 PM EDT Narrative Resulting Agency Comment Spec In Lab Jesenia Dolan MD HEMATOLOGY ORDERABL ES [facility] [place] [address] * (ABNORMAL) Basic Metabolic Panel (non-fasting) (05/12/2017 11:56 AM EDT) Glucose 126 65 - 199 mg/dL [facility] Comment:Diabetes: >=200 mg/d L plus symptoms Blood Urea Nitrogen 80(H) 10 - 20 mg/dL [facility] Creatinine 4.31(H) 0.80 - 1.50 mg/dL [facility] Sodium 143 135 - 145 mmol/L [facility] Potassium 3.1(L) 3.5 - 5.0 mmol/L [facility] Comment: Please note: ??Patients with WBC >100,000 may have falsely elevated Potassium levels. ??For accurate Potassium quantification in these patients send serum separator tube (gold top) for subsequent determinations. ??Contact the Clinical Chemistry Laboratory if there are any questions. Chloride 115(H) 98 - 107 mmol/L [facility] Carbon Dioxide 12(L) 22 - 31 mmol/L [facility] Anion Gap 16(H) 5 - 15 mmol/L [facility] Calcium 7.6(L) 8.5 - 10.5 mg/dL [facility] Est Glomerular Filtration Rate 14(L) >=60 [facility] Comment: The reported eGFR should be multiplied by 1.2 for patients. The MDRD is not an appropriate measure of renal function for patients with body mass extremes or in patients with acute kidney failure. http://[employer]/DHnkdep http://[employer]/DHMCnkf Blood specimen (specimen) 05/12/2017 11:56 AM EDT 05/12/2017 12:11 PM EDT Narrative Resulting Agency Comment Spec In Lab Jesenia Dolan MD CHEMISTRY ORDERABLE S [facility] [place] [address] * US Renal Transplant Right (05/12/2017 10:48 [...] 11:17 am) PATIENT INFO: ID #: ? [id number] ? : [birth year] (56 yrs) Name: ? CHRISTY Ginna AMBROSE ? Visit Date:05/12/2017 10:42 am PERFORMED BY: Performed By: ? Naz Smith RDMS Attending: ?Lemuel JONES, Devi Adams Resident: ? Danny Spears MD Referred By: ?JESENIA DOLAN Location: ? [place] SERVICE(S) PROVIDED: ??URTPR - Renal Transplant - Right - [id number] ? [id number] INDICATIONS: ??Evaluate for any evidence of hydronephrosis [...] 05/12/2017 11:17 am) PATIENT INFO: ID #: [id number] : [birth year] (56 yrs) Name: CHRISTY AMBROSE Visit Date:05/12/2017 10:42 am PERFORMED BY: Performed By: Naz Smith RDMS Attending: Devi Hdez MD Resident: Danny Spears MD Referred By: JESENIA DOLAN Location: [place] SERVICE(S) PROVIDED: URTPR - Renal Transplant - Right - [id number] INDICATIONS: Evaluate for any evidence of hydronephrosis [...] ABORH Recheck Status (05/12/2017 8:18 AM EDT) [facility] ABORH Type Recheck Completed [facility] Blood specimen (specimen) 05/12/2017 8:18 AM EDT 05/12/2017 8:36 AM EDT Narrative Resulting Agency Comment Spec In Lab Jesenia Dolan MD BLOOD BANK LAB [facility] Organization Address City/State/ZIP Co de Phone Number [facility] [place] [address] * Antibody screen (05/12/2017 8:18 AM EDT) [facility] Ab Screen Interp Negative [facility] Expires at [id number] on: 05/15/2017 [facility] Blood specimen (specimen) 05/12/2017 8:18 AM EDT 05/12/2017 8:36 AM EDT Narrative Resulting Agency Comment Spec In Lab Jesenia Dolan MD BLOOD BANK LAB RYAN CALERO Performing Organization Address [facility]/ZIP Co de Phone Number [facility] [place] [address] * ABO/Rh Typing (05/12/2017 8:18 AM EDT) ABORH Type A Pos [facility] Blood specimen (specimen) 05/12/2017 8:18 AM EDT 05/12/2017 8:36 AM EDT Narrative Resulting Agency Comment Spec In Lab Jesenia Dolan MD BLOOD BANK LAB RYAN CALERO Performing Organization Address [facility] [[email or web address]] Co de Phone Number [facility] [place] [address] * (ABNORMAL) Prothrombin Time (05/12/2017 7:33 AM EDT) Prothrombin Time 53.8(Crit ical) 11.8 - 14.0 sec [facility] Comment: Called by: anil, Read [...] International Normalization Ratio 5.9(H) 0.9 - 1.1 [facility] Blood specimen (specimen) 05/12/2017 7:33 AM EDT 05/12/2017 7:42 AM EDT Narrative Resulting Agency Comment Spec In Lab Flori A Donna GUEST RELATIONS COORDINATOR HEMATOLOGY ORDERABLE S Performing Organization Address City/[facility]/ZIP Co de Phone Number [facility] [place] [address] * Creatinine, urine, random (05/12/2017 6:20 AM EDT) Creatinine, Urine 120 mg/dL [facility] Urine specimen (specimen) 05/12/2017 6:20 AM EDT 05/12/2017 6:47 AM EDT Narrative Resulting Agency Comment Spec In Lab Jesenia Dolan MD URINE ORDERABLES Performing Organization Address [facility]/ZIP Co de Phone Number [facility] [place] [address] * Sodium, urine, random (05/12/2017 6:20 AM EDT) Sodium, Urine <20 mmol/L [facility] Urine specimen (specimen) 05/12/2017 6:20 AM EDT 05/12/2017 6:47 AM EDT Narrative Resulting Agency Comment Spec In Lab Jesenia Dolan MD URINE ORDERABLES Performing Organization Address [facility] [[email or web address]] Co de Phone Number [facility] [place] [address] * (ABNORMAL) _Urinalysis with microscopic (05/12/2017 6:20 AM EDT) Glucose, Urine Dipstick Negative Negative mg/dL [facility] Protein, Urine Dipstick 30(A) Negative mg/dL [facility] Bilirubin, [...] Clear Clear [facility] Specific [place] Urine Automated 1.015 1.002 - 1.030 [facility] Color, Urine Dipstick Yellow Yellow [facility] RBC, Urine <1 0 - 3 /HPF [facility] WBC, Urine 1 0 - 3 /HPF [facility] Squamous Epithelial Cells Raw Data, Urine <1 <=4 /HPF [facility] Hyaline Casts, Urine 4(H) 0 - 2 /LPF [facility] Urine specimen (specimen) 05/12/2017 6:20 AM EDT 05/12/2017 6:47 AM EDT Narrative Resulting Agency Comment Spec In Lab Jesenia Dolan MD URINE ORDERABLES Performing Organization Address City/State/[facility] [[email or web address]] Co de Phone Number [facility] [place] [address] * (ABNORMAL) Differential, Automated (05/12/2017 6:18 AM EDT) Neutrophil % 66.3 % [facility] Neutrophil Absolute 1.77 1.70 - 6.10 x10(3)/mc L [facility] Lymph % 18.7 % [facility] Lymphocytes Abs 0.5(L) 0.9 - 3.2 x10(3)/mc L [facility] Monocyte % 12.4 % [facility] Monocyte Abs 0.3 0.3 - 0.9 x10(3)/mc L [facility] Eos % 2.6 % [facility] Eosinophils Abs 0.1 0.0 - 0.4 x10(3)/mc L [facility] Basophil % 0.0 % [facility] Baso Absolute 0.0 0.0 - 0.1 x10(3)/[facility] LABORATORY Immature Gran % 0.00 % [facility] Comment: Immature granulocytes(IG's)percentage and absolute count will include metamyelocytes, myelocytes, and promyelocytes. Blood smears from CBCs yielding IG's will be scanned manually for concordance. If this scan disagrees with the automated IG or if promyelocytes are noted, a manual differential will be performed. Immature Gran Absolute 0.00 0.00 - 0.04 x10(3)/[facility] LABORATORY Blood specimen (specimen) 05/12/2017 6:18 AM EDT 05/12/2017 6:33 AM EDT Narrative Resulting Agency Comment Spec In Lab Jesenia Dolan MD HEMATOLOGY ORDERABL ES [facility] [place] [address] * (ABNORMAL) Hemogram (05/12/2017 6:18 AM EDT) White Blood Cell 2.7(L) 4.0 - 9.5 x10(3)/[facility] LABORATORY Red Blood Cell 2.47(L) 4.58 - 5.54 x10(6)/[facility] LABORATORY Hemoglobin 7.2(L) 13.7 - 16.5 gm/dL [facility] Hematocrit 21.3(L) 40.5 - 48.5 % [facility] Mean Cell Volume 86.2 82.9 - 93.1 fL [facility] Mean Cell Hemoglobin 29.1 27.5 - 32.1 pg [facility] Mean Cell Hemoglobin Concentration 33.8 32.0 - 35.7 gm/dL [facility] Platelet 188 145 - 357 x10(3)/[facility] LABORATORY RDW Standard Deviation 47.7(H) 36.0 - 45.0 fL [facility] RDW coefficient of variation 15.3(H) 11.4 - 13.8 % [facility] Mean Platelet Volume 10.3 7.6 - 12.9 fL [facility] NRBC% auto 0.0 % [facility] NRBC Absolute 0.000 0.000 - 0.000 x10(3)/mc L [facility] Blood specimen (specimen) 05/12/2017 6:18 AM EDT 05/12/2017 6:33 AM EDT Narrative Resulting Agency Comment Spec In Lab Jesenia Dolan MD HEMATOLOGY ORDERABL ES Performing Organization Address [facility] [[email or web address]] Co de Phone Number [facility] [place] [address] * Prealbumin (05/12/2017 6:18 AM EDT) Prealbumin 28 20 - 40 mg/dL [facility] Comment: Prealbumin levels are generally lower in the pediatric population; adult concentrations are usually attained near puberty. Blood specimen (specimen) 05/12/2017 6:18 AM EDT 05/12/2017 6:33 AM EDT Narrative Resulting Agency Comment Spec In Lab Jesenia Dolan MD CHEMISTRY ORDERABLE S Performing Organization Address [facility] [[email or web address]] Co de Phone Number [facility] [place] [address] * (ABNORMAL) Basic Metabolic Panel (non-fasting) (05/12/2017 6:18 AM EDT) Glucose 101 65 - 199 mg/dL [facility] Comment:Diabetes: >=200 mg/d L plus symptoms Blood Urea Nitrogen 82(H) 10 - 20 mg/dL [facility] Creatinine 4.93(H) 0.80 - 1.50 mg/dL [facility] Sodium 148(H) 135 - 145 mmol/L [facility] Potassium 3.3(L) 3.5 - 5.0 mmol/L [facility] Comment: Please note: ??Patients with WBC >100,000 may have falsely elevated Potassium levels. ??For accurate Potassium quantification in these patients send serum separator tube (gold top) for subsequent determinations. ??Contact the Clinical Chemistry Laboratory if there are any questions. Chloride 116(H) 98 - 107 mmol/L [facility] Carbon Dioxide 12(L) 22 - 31 mmol/L [facility] Anion Gap 20(H) 5 - 15 mmol/L [facility] Calcium 7.4(L) 8.5 - 10.5 mg/dL [facility] Est Glomerular Filtration Rate 12(L) >=60 [facility] Comment: The reported eGFR should be multiplied by 1.2 for patients. The MDRD is not an appropriate measure of renal function for patients with body mass extremes or in patients with acute kidney failure. http://[employer]/DHnkdep http://[employer]/DHMCnkf Blood specimen (specimen) 05/12/2017 6:18 AM EDT 05/12/2017 6:33 AM EDT Narrative Resulting Agency Comment Spec In Lab Jesenia Dolan MD CHEMISTRY ORDERABLE S [facility] [place] [address] * Tacrolimus level (05/12/2017 6:18 AM EDT) Tacrolimus <3.0 ng/mL [facility] Comment: Trough therapeutic: ??5-15 ng/mL Performed by ultra-performance liquid chromatography tandem mass spectrometry (UPLCMS/MS). This test was developed and its performance characteristics determined by [facility]. It has not been cleared or [...] MD CHEMISTRY ORDERABLE S Performing Organization Address City/[facility]/ZIP Co de Phone Number [facility] [place] [address] * Phosphorus (05/12/2017 6:18 AM EDT) Phosphorus 4.4 2.5 - 4.5 mg/dL [facility] Blood specimen (specimen) 05/12/2017 6:18 AM EDT 05/12/2017 6:33 AM EDT Narrative Resulting Agency Comment Spec In Lab Jesenia Dolan MD CHEMISTRY ORDERABLE S Performing Organization Address [facility] [[email or web address]] Co de Phone Number [facility] [place] [address] * Hemoglobin A1c (05/12/2017 6:18 AM EDT) Hemoglobin A1c 5.5 4.3 - 5.6 % [facility] [...] Mellitus, Diabetes Care 2013; 36: Suppl. 1, S67-17 Estimated Average Glucose 111 mg/dL [facility] Comment: eAG [...] into estimated average glucose values. ??Diabetes Care 2008:31(8):2986-1448. Blood specimen (specimen) 05/12/2017 6:18 AM EDT 05/12/2017 6:32 AM EDT Narrative Resulting Agency Comment Spec In Lab Jesenia Dolan MD CHEMISTRY ORDERABLE S [facility] [place] [address] * (ABNORMAL) Hepatic Function Panel (05/12/2017 6:18 AM EDT) Protein, Total 4.8(L) 6.1 - 8.0 gm/dL [facility] Albumin 3.0(L) 3.2 - 5.2 gm/dL [facility] Aspartate Aminotransferase 11 0 - 39 unit/L [facility] Alanine Aminotransferase 10 0 - 55 unit/L [facility] Alkaline Phosphatase 101 40 - 120 unit/L [facility] Bilirubin, Total 0.3 0.2 - 1.3 mg/dL [facility] Bilirubin, Direct 0.1 0.0 - 0.3 mg/dL [facility] Blood specimen (specimen) 05/12/2017 6:18 AM EDT 05/12/2017 6:33 AM EDT Narrative Resulting Agency Comment Spec In Lab Jesenia Dolan MD CHEMISTRY ORDERABLE S Performing Organization Address City/[facility]/ZIP Co de Phone Number [facility] [place] [address] * TSH [place] (05/12/2017 6:18 AM EDT) Thyroid Stimulating Hormone 3.21 0.27 - 4.20 mlU/ML [facility] Blood specimen (specimen) 05/12/2017 6:18 AM EDT 05/12/2017 6:33 AM EDT Narrative Resulting Agency Comment Spec In Lab Jesenia Dolan MD CHEMISTRY ORDERABLE S Performing Organization Address [facility] [[email or web address]] Co de Phone Number [facility] [place] [address] * (ABNORMAL) XR Chest PA & Lateral [...] 12 Lead (05/11/2017 9:18 PM EDT) Pathologist [facility] Ventricular rate 48 BPM MUSE SYSTEM Atrial Rate 48 BPM MUSE SYSTEM P-R Interval 132 ms MUSE SYSTEM QRS Duration 98 ms MUSE SYSTEM Q-T Interval 448 ms MUSE SYSTEM QTC Calculated (Bezet) 400 ms MUSE SYSTEM Calculated P Dwight 54 degrees MUSE SYSTEM Calculated R Dwight 56 degrees MUSE SYSTEM Calculated T Dwight 47 degrees MUSE SYSTEM INTERPRETATION Marked sinus bradycardia Abnormal ECG When compared with ECG of 26-NOV-2002 10:23, T wave amplitude has decreased in Lateral leads Confirmed by Carter Pan MD ([id number]) on 05/12/2017 3:10:32 PM MUSE SYSTEM 05/11/2017 9:18 PM EDT 05/12/2017 3:10 PM EDT Jesenia Dolan MD ECG ORDERABLES MUSE SYSTEM * (ABNORMAL) Differential, Automated (05/11/2017 8:30 PM EDT) Pathologist [facility] Neutrophil % 65.9 % [facility] Neutrophil Absolute 2.58 1.70 - 6.10 x10(3)/mc L [facility] Lymph % 16.1 % [facility] Lymphocytes Abs 0.6(L) 0.9 - 3.2 x10(3)/mc L [facility] Monocyte % 15.9 % [facility] Monocyte Abs 0.6 0.3 - 0.9 x10(3)/mc L [facility] Eos % 1.5 % [facility] Eosinophils Abs 0.1 0.0 - 0.4 x10(3)/mc L [facility] Basophil % 0.3 % [facility] Baso Absolute 0.0 0.0 - 0.1 x10(3)/mc L [facility] Immature Gran % 0.30 % [facility] Comment: Immature granulocytes(IG's)percentage and absolute count will include metamyelocytes, myelocytes, and promyelocytes. Blood smears from CBCs yielding IG's will be scanned manually for concordance. If this scan disagrees with the automated IG or if promyelocytes are noted, a manual differential will be performed. Immature Gran Absolute 0.01 0.00 - 0.04 x10(3)/mc L [facility] Blood specimen (specimen) 05/11/2017 8:30 PM EDT 05/11/2017 8:42 PM EDT Narrative Resulting Agency Comment Spec In Lab Jesenia Dolan MD HEMATOLOGY ORDERABL ES [facility] [place] [address] * (ABNORMAL) Hemogram (05/11/2017 8:30 PM EDT) White Blood Cell 3.9(L) 4.0 - 9.5 x10(3)/ L [facility] Red Blood Cell 2.95(L) 4.58 - 5.54 x10(6)/mc L [facility] Hemoglobin 8.5(L) 13.7 - 16.5 gm/dL [facility] Hematocrit 26.0(L) 40.5 - 48.5 % [facility] Mean Cell Volume 88.1 82.9 - 93.1 fL [facility] Mean Cell Hemoglobin 28.8 27.5 - 32.1 pg [facility] Mean Cell Hemoglobin Concentration 32.7 32.0 - 35.7 gm/dL [facility] Platelet 214 145 - 357 x10(3)/mc L [facility] RDW Standard Deviation 49.6(H) 36.0 - 45.0 fL [facility] RDW coefficient of variation 15.6(H) 11.4 - 13.8 % [facility] Mean Platelet Volume 10.2 7.6 - 12.9 fL [facility] NRBC% auto 0.0 % [facility] NRBC Absolute 0.000 0.000 - 0.000 x10(3)/mc L [facility] Blood specimen (specimen) 05/11/2017 8:30 PM EDT 05/11/2017 8:42 PM EDT Narrative Resulting Agency Comment Spec In Lab Jesenia Dolan MD HEMATOLOGY ORDERABL ES [facility] [place] [address] * (ABNORMAL) Basic Metabolic Panel (non-fasting) (05/11/2017 8:30 PM EDT) Glucose 110 65 - 199 mg/dL [facility] Comment:Diabetes: >=200 mg/d L plus symptoms Blood Urea Nitrogen 84(H) 10 - 20 mg/dL [facility] Creatinine 4.93(H) 0.80 - 1.50 mg/dL [facility] Sodium 144 135 - 145 mmol/L [facility] Potassium 3.3(L) 3.5 - 5.0 mmol/L [facility] Comment: Please note: ??Patients with WBC >100,000 may have falsely elevated Potassium levels. ??For accurate Potassium quantification in these patients send serum separator tube (gold top) for subsequent determinations. ??Contact the Clinical Chemistry Laboratory if there are any questions. Chloride 113(H) 98 - 107 mmol/L [facility] Carbon Dioxide 12(L) 22 - 31 mmol/L [facility] Anion Gap 19(H) 5 - 15 mmol/L [facility] Calcium 8.1(L) 8.5 - 10.5 mg/dL [facility] Est Glomerular Filtration Rate 12(L) >=60 [facility] Comment: The reported eGFR should be multiplied by 1.2 for patients. The MDRD is not an appropriate measure of renal function for patients with body mass extremes or in patients with acute kidney failure. http://[employer]/DHnkdep http://[employer]/DHMCnkf Blood specimen (specimen) 05/11/2017 8:30 PM EDT 05/11/2017 8:42 PM EDT Narrative Resulting Agency Comment Spec In Lab Jesenia Dolan MD CHEMISTRY ORDERABLE S Performing Organization Address [facility] [[email or web address]] Co de Phone Number [facility] [place] [address] * Lactate, whole blood, send to lab (05/11/2017 8:30 PM EDT) Lactate WB 1.2 0.5 - 2.2 mmol/L [facility] Blood specimen (specimen) 05/11/2017 8:30 PM EDT 05/11/2017 8:40 PM EDT Narrative Resulting Agency Comment Spec In Lab Jesenia Dolan MD CHEMISTRY ORDERABLE S Performing Organization Address [facility] [[email or web address]] Co de Phone Number [facility] [place] [address] documented in this encounter Visit Diagnoses Not [...] Galvan RN) 0859 (Given - Provider: Nanda gM RN)2015 (Given - Provider: Rosita Aranda RN) [...] No documented in this encounter Care Teams Emergency Room Doctor Relationship Specialty Start Date End Date Carroll Fuentes DO [address] [place] [address] PCP - General 09/23/11 10/20/22 documented as of this encounter
--- OUTSIDE RECORDS SUMMARY | 2024-05-23 13:34 | XMS_ITS | Encounter Summary ---
[place] [address] Care Team Providers Care Slip Cover Sewer Name Role Phone Carroll Fuentes DO Primary Care Provider [phone] Reason for Visit * Reason Onset Date Comments Medication Refill 01/06/2017 Encounter Details Date Type Department Care Team (Late st Contact Info) Description 01/06/2017 Refill [place] [phone] Crystal Brown, GAMBLING MONITOR High level of uric acid in blood [...] chemistry documented in this encounter Care Teams Slip Cover Sewer Relationship Specialty Start Date End Date Carroll Fuentes DO [address] [place] [address] PCP - General 09/23/11 10/20/22 documented as of this encounter
--- OUTSIDE RECORDS SUMMARY | 2024-05-23 13:34 | XMS_ITS | Encounter Summary ---
Author Organization [facility] Address [facility] [place] [address] Care Team Providers Care Qa Specialist Name Role Phone AlfredoCarroll allison Primary Care Provider [phone] Reason for Visit * Reason Comments Medication Refill Encounter Details Date Type Department Care Team (Late st Contact Info) Description 01/29/2017 Refill [place] [address] Anup Hawkins MD [facility] [place] [address] H/O kidney transplant Social History Tobacco Use [...] documented in this encounter Care Teams Qa Specialist Relationship Specialty Start Date End Date Carroll Fuentes DO [address] [place] [address] PCP - General 09/23/11 10/20/22 documented as of this encounter
--- OUTSIDE RECORDS SUMMARY | 2024-05-23 13:34 | XMS_ITS | Encounter Summary ---
Author Organization [facility] [place] [address] Care Team Providers Care Copy Camera Operator Name Role Phone AlfredoCarroll allison Primary Care Provider [phone] Reason for Visit * Auth/Cert Specialty Diagnoses / Procedures Referred By Shashi ko Referred To Contact Diagnoses TRISTIAN (acute kidney injury) ACUTE ON CHRONIC RENAL FAILURE Procedures emergency IPI Referral ID Status Reason Start Date Expiration Date Visits Re quested Visits Authorized [id number] 1 1 Encounter Details Date Type Department Care Team (Late st Contact Info) Description 05/13/2017 5:23 PM EDT Anesthesia [place] [address] [facility] [place] [address] [facility] [address] Anesthesia Record Procedure Summary Procedure Name Responsible [...] cephalic vein (lateral side of arm), right; ouvj-xxo-vuojvj catheter system; 20 gauge, 1 in length; intradermal injection, tolerated well; 05/16/17; 1344 05/11/17 2034 by Autumn Andersen LPN 05/16/17 1344 by Nancy Ahumada RN (RETIRED) Peripheral IV Line - Single Lumen 05/12/17; 0907; basilic vein (medial side of arm), right; uxoq-tra-oipfbj catheter system; 22 gauge, 1 in length; tony pederson rn vas; tolerated well; 0; 05/16/17; 1345 05/12/17 0907 by Ajay Pederson RN 05/16/17 1345 by Nancy Ahumada RN Wound 05/12/17; 1259; wris t; 05/16/17; 1345 05/12/17 1259 by Patty Harding RN 05/16/17 1345 by Nancy Ahumada RN (RETIRED) Peripheral IV Line - Single Lumen 05/12/17; 1711; basilic vein (medial side of arm), right; awei-tda-mopakh catheter system; 20 gauge, 1 in length; [...] Lewis MD - 05/13/2017 6:14 PM EDT [facility] [place] Department of Anesthesiology Post-procedure Note Patient: Adama Ram Procedure Summary Date Anesthesia Start Anesthesia Stop Room / Location 05/13/17 1723 1804 [facility] ENDO 3 / [facility] ENDOSCOPY Procedure Diagnosis Surgeon Responsible Provider EGD WITH BIOPSY (WRVU 2.49) (N/A Trunk) (Hematemesis; Per Abimael; Danielito) Aditya Barrera MD O'Flaherty, Jennifer E, MD All Anesthesia Providers: Anesthesiologist: Odalis Lewis MD CORE BLOWER OPERATOR: Agustina Mendoza CRNA Most Recent Vitals: 05/13/17 [...] GFR 15-29 ml/min ??? 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 [facility] current use of immunosuppressive drug ??? H/O [...] performed by Miguel Angel Moreno MD at [facility] MAIN OR ??? PRO EXC PAROTD, TOTAL, UNILAT RAD NECK Left 02/05/2016 @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, TOTAL, WITH UNILATERAL RADICAL NECK DISSECTION performed by Miguel Angel Moreno MD at [facility] MAIN OR ??? PRO EXC SKIN MALIG 3.1-4CM FACE, FACIAL Left 02/05/2016 EXC MALIGNANT LESION, 3.1 TO 4.0CM, FACE performed by Miguel Angel Moreno MD at [facility] MAIN OR ? ? PRO EXC SKIN MALIG >4CM TRUNK, ARM, LEG 04/19/2012 EXC MALIGNANT LESION, MICHAEL > 4.0CM, TRUNK performed by SABRINA SANCHEZ at [facility] MAIN OR ??? PRO REPAIR INTERMEDIATE S/A/T/E 2.6-7.5 CM 04/19/2012 REPAIR INTERMEDIATE WOUND, (NO HANDS OR FEET) 2.6 TO 7.5CM, UPPER EXTREMITY performed by SABRINA SANCHEZ at [facility] OR ? ? PRO SPLIT GRFT, HEAD, FAC, HAND, FEET <100SQCM N/A 02/20/2016 SPLIT THICKNESS SKIN SPLIT GRAFT,100SQ CM OR LESS, NECK performed by Miguel Angel Moreno MD at [facility] MAIN OR ??? PRO VASCULAR SURGERY PROCEDURE UNLIST Left 11/20/2015 LIGATION\REPAIR AV FISTULA performed by Camilo Ireland MD at [facility] OR ??? PRO VASCULAR SURGERY PROCEDURE UNLIST Left 11/20/2015 EXCISION VEIN FROM HAND performed by Camilo Ireland MD at [facility] OR ??? US RENAL TRANSPLANT BIOPSY [...] risks discussed with patient. Plan discussed with CORE BLOWER OPERATOR and attending. PAT Staff Note documented in [...] mg documented in this encounter Care Teams Copy Camera Operator Relationship Specialty Start Date End Date Carroll Fuentes DO [address] [place] [address] PCP - General 09/23/11 10/20/22 documented as of this encounter
--- OUTSIDE RECORDS SUMMARY | 2024-05-23 13:34 | XMS_ITS | Encounter Summary ---
Author [place] [address] Care Team Providers Care Manufacturing Associate Name Role Phone Carroll Fuentes DO Primary Care Provider Reason for Visit * Reason Onset Date Comments Medication Refill 03/09/2017 Encounter Details Date Type Department Care Team (Late st Contact Info) Description 03/09/2017 Refill [place] [address] Crystal Brown, [facility] Social [...] filedocumented in this encounter Care Teams Manufacturing Associate Relationship Specialty Start Date End Date Carroll Fuentes DO [address] [place] [address] PCP - General 09/23/11 10/20/22 documented as of this encounter
--- OUTSIDE RECORDS SUMMARY | 2024-05-23 13:34 | XMS_ITS | Encounter Summary ---
Author Organization [facility] Address [facility] [place] [address] Care Team Providers Care Siphoner Name Role Phone Carroll Fuentes DO Primary Care Provider [phone] Encounter Details Date Type Department Care Team (Late st Contact Info) Description 01/21/2017 Telephone Dermatology at [facility] [address] [place] [address] Chanel Smith MD [facility] [address] [place] [address] Social History Tobacco Use Types Packs/Day Years [...] on filedocumented in this encounter Care Teams Siphoner Relationship Specialty Start Date End Date Carroll Fuentes DO [address] [place] [address] PCP - General 09/23/11 10/20/22 documented as of this encounter
--- OUTSIDE RECORDS SUMMARY | 2024-05-23 13:35 | XMS_ITS | Encounter Summary ---
Author Organization [facility] Address [facility] [place] [address] Care Team Providers Care Cable Cutter And Swager Name Role Phone Carroll Fuentes DO Primary Care Provider Reason for Visit * Reason Onset Date Comments Medication Refill 02/13/2016 Encounter Details Date Type Department Care Team (Late st Contact Info) Description 02/13/2016 [place] [address] Alfonzo Miles MD [facility] [place] [address] Social History Tobacco Use Types Packs/Day Years [...] on filedocumented in this encounter Care Teams Cable Cutter And Swager Relationship Specialty Start Date End Date Carroll Fuenets DO [address] [place] [address] PCP - General 09/23/11 10/20/22 documented as of this encounter
--- OUTSIDE RECORDS SUMMARY | 2024-05-23 13:35 | XMS_ITS | Encounter Summary ---
[place] [address] Care Team Providers Care Supervisor Liquid Yeast Name Role Phone Carroll Fuentes DO Primary Care Provider Reason for Visit * Reason Onset Date Comments Medication Refill 08/14/2016 Encounter Details Date Type Department Care Team (Late st Contact Info) Description 08/14/2016 Refill [place] [phone] Autumn Burgos, RN S/P kidney transplant Social [...] documented in this encounter Care Teams Supervisor Liquid Yeast Relationship Specialty Start Date End Date Carroll Fuentes DO [address] [place] [address] PCP - General 09/23/11 10/20/22 documented as of this encounter
--- OUTSIDE RECORDS SUMMARY | 2024-05-23 13:35 | XMS_ITS | Encounter Summary ---
Author Organization [facility] Address [facility] [place] [address] Care Team Providers Care Clinical Microbiologist Name Role Phone AlfredoCarroll allison DO Primary Care Provider [phone] Reason for Visit * Reason Comments Skin Check Encounter Details Date Type Department Care Team (Late st Contact Info) Description 10/26/2016 10:30 AM EDT Office Visit Dermatology at [place] [address] [place] [address] Alexander Sage MD [facility] [address] [place] [address] Neoplasm of uncertain behavior of skin (Primary [...] or concerns, please call the office at [phone]. If it is after 5PM, or a holiday or weekend, please call [phone] and ask for the Batch Or Continuous Still Operator on-call. documented in this encounter Progress Notes * Alexander Sage MD - 10/26/2016 10:30 AM EDT DERMATOLOGY ESTABLISHED PATIENT CLINIC NOTE Date of service: 10/26/2016 Adama Ginna Ram : 1960 Provider: Alexander Sage MD Chief Complaint Patient presents with ??? 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 MEDS: Current Outpatient Prescriptions Medication Sig Dispense [...] documentation in this encounter. Alexander Sage MD Plumbers And Top Helpers of Dermatology, Department of Surgery [facility] documented in this encounter Plan of Treatment Not on file documented as of this encounter Procedures Procedure Name Priority Date/Time Associated Diagnosis Comments SPECIMEN TO PATHOLOGY (NON-OR) Routine 10/26/2016 11:27 AM EDT Neoplasm of uncertain behavior of skin SURGICAL PATHOLOGY REPORT Routine 10/26/2016 11:27 AM EDT documented in this encounter Results * Surgical Pathology Report (10/26/2016 11:27 AM EDT) Final Diagnosis [id number] ?Location: [facility] The signing pathologist has (i) [...] sectioned. (T2) ??sns 10/27/2016 8:22 AM EDT [facility] SPECIMEN FROM SKIN / Unknown 10/26/2016 11:27 AM EDT 10/26/2016 11:27 AM EDT Alexander Sage MD PATHOLOGY/CYTOLOGY O UMESH Performing Organization Address [facility] Co de Phone Number [facility] [place] [place] [address] * Specimen to Pathology (NON-OR) (10/26/2016 11:27 AM EDT) AP Specimen 10/26/2016 11:2 7 AM EDT 10/26/2016 3:29 PM EDT Narrative [facility] - 10/26/2016 3:29 PM EDT Specimen requisition ordered. ??Separate Pathology report to follow Resulting Agency Comment Spec In Lab Alexander Sage MD PATHOLOGY/CYTOLOGY O UMESH Performing Organization Address City/[facility] Co de Phone Number [facility] [place] [address] documented in this encounter Visit Diagnoses Diagnosis Neoplasm of uncertain behavior of skin- Primary History of SCC (squamous cell carcinoma) of skin Personal history of other malignant neoplasm of skin Renal transplant recipient documented in this encounter Care Teams Clinical Microbiologist Relationship Specialty Start Date End Date Carroll Fuentes DO [address] [place] [address] PCP - General 09/23/11 10/20/22 documented as of this encounter
--- OUTSIDE RECORDS SUMMARY | 2024-05-23 13:35 | XMS_ITS | Encounter Summary ---
Author Organization [facility] [place] [address] Care Team Providers Care Jig And Fixture Repairer Name Role Phone AlfredoCarroll allison Primary Care Provider [phone] Reason for Visit * Reason Onset Date Comments Medication Refill 10/13/2016 Encounter Details Date Type Department Care Team (Late st Contact Info) Description 10/13/2016 [place] [phone] Mirian Acosta CMA Medication Refill Social History [...] tablet faxed to requested pharmacy, : [phone] [place], [place] - [address] [facility]. documented in this encounter Plan of Treatment Not on file documented as of this encounter Visit Diagnoses Not on filedocumented in this encounter Care Teams Jig And Fixture Repairer Relationship Specialty Start Date End Date Carroll Fuentes DO [address] [facility] [place] [address] PCP - General 09/23/11 10/20/22 documented as of this encounter
--- OUTSIDE RECORDS SUMMARY | 2024-05-23 13:35 | XMS_ITS | Encounter Summary ---
Author Organization [facility] Address [facility] [place] [address] Care Team Providers Care Automobile Carpets Molder Name Role Phone Carroll Fuentes DO Primary Care Provider [phone] Reason for Visit * Reason Comments Squamous Cell Carcinoma Encounter Details Date Type Department Care Team (Late st Contact Info) Description 04/27/2016 1:45 PM EDT Office Visit Dermatology at [facility] [address] [place] [address] [facility] [place] [address] History of SCC (squamous cell carcinoma) of [...] removed 01/2016 left side of neck at [facility] Transplant History (Kidney) in 2002. HPI Adama [...] of SOCIAL HISTORY/OCCUPATION: Not working at present [employer] EXAM General: NAD, pleasant, cooperative Skin: Patient [...] documentation in this encounter. Alexander Sage MD Change Management Expert of Dermatology, Department of Surgery [facility] cc: CARROLL FUENTES DO documented in this encounter Plan of Treatment Not on file documented as of this encounter Visit Diagnoses Diagnosis History of SCC (squamous cell carcinoma) of skin Personal history of other malignant neoplasm of skin Neoplasm of skin Neoplasm of unspecified nature of bone, soft tissue, and skin Renal transplant recipient documented in this encounter Care Teams Automobile Carpets Molder Relationship Specialty Start Date End Date Carroll Fuentes DO [address] [place] [address] PCP - General 09/23/11 10/20/22 documented as of this encounter
--- OUTSIDE RECORDS SUMMARY | 2024-05-23 13:35 | XMS_ITS | Encounter Summary ---
Author Organization [facility] Address [facility] [place] [address] Care Team Providers Care Automobile Technician Name Role Phone AlfredoCarroll allison Primary Care Provider Reason for Visit * Auth/Cert Specialty Diagnoses / Procedures Referred By Shashi ko Referred To Contact Diagnoses open defect cheek Procedures PRO ADJ TISS XFER HEAD, FAC, HAND 10.1-30 ADJ.TISSUE TRANSFER, REARRANGEMENT, 10.1 TO 30 SQ.CM, CHEEK Referral ID Status Reason Start Date Expiration Date Visits Re quested Visits Authorized [id number] 1 Encounter Details Date Type Department Care Team (Late st Contact Info) Description 02/20/2016 11:30 AM EDT - 02/20/2016 1:58 PM EDT [place] [phone] Miguel Angel Barajas MD [facility] [place] [address] DEBRIDEMENT SKIN AND SUBCU, HEAD/NECK (WRVU 1.01) [...] -You can reach the ENT clinic at [phone] for appointment questions. -The ENT triage nurse is available at [phone] -For urgent issues during evenings and weekends the ENT resident meat boner can be reached through [facility] chip mixing machine operator at [phone] documented in this encounter Medications at Time [...] Cheng MD - 02/20/2016 1:48 PM EDT [facility] [place] Note Patient Name: Adama Ram : [id number] MR#: [id number] Case Date: 02/20/2016 Surgeon: Surgeon(s) and Role: * Miguel Angel Barajas MD - Primary * Paxton Cheng MD - Resident-Ergonomist Preoperative diagnosis: open defect cheek Postoperative diagnosis: [...] Prothrombin Time 16.4(H) 12.0 - 15.0 sec [facility] Comment: An INR [...] International Normalization Ratio 1.3(H) 0.9 - 1.1 [facility] Blood specimen (specimen) 02/20/2016 10:22 AM EDT 02/20/2016 10:37 AM EDT Narrative Resulting Agency Comment Spec In Lab Miguel Angel Barajas MD HEMATOLOGY ORDERAB LES Performing Organization Address [facility] Co de Phone Number [facility] [place] [address] * (ABNORMAL) Potassium (02/20/2016 10:22 AM EDT) Potassium 5.4(H) 3.5 - 5.0 mmol/L [facility] MD CHEMISTRY ORDERABL ES Performing Organization Address [facility] Co de Phone Number [facility] [place] [address] documented in this encounter Visit Diagnoses Diagnosis [...] Oral, EVERY 4 HOURS PRN, Starting on Marzia 02/20/16 at 1346, Until Mariza 02/20/16 at [...] Routine documented in this encounter Care Teams Automobile Technician Relationship Specialty Start Date End Date Carroll Fuentes DO [address] [place] [address] PCP - General 09/23/11 10/20/22 documented as of this encounter
--- OUTSIDE RECORDS SUMMARY | 2024-05-23 13:35 | XMS_ITS | Encounter Summary ---
Author Organization [facility] [place] [address] Care Team Providers Care Computer Systems Design Analyst Name Role Phone Carroll Fuentes DO Primary Care Provider Encounter Details Date Type Department Care Team (Late st Contact Info) Description 02/14/2016 Telephone [place] [phone] Antony Yin Social History Tobacco Use Types [...] filedocumented in this encounter Care Teams Computer Systems Design Analyst Relationship Specialty Start Date End Date Carroll Fuentes DO [address] [place] [address] [place] [address] PCP - General 09/23/11 10/20/22 documented as of this encounter
--- OUTSIDE RECORDS SUMMARY | 2024-05-23 13:35 | XMS_ITS | Encounter Summary ---
Author Organization [facility] Address [facility] [place] [address] Care Team Providers Care Director Peoplesoft Name Role Phone Carroll Fuentes DO Primary Care Provider [phone] Reason for Visit * Reason Comments Procedure Squamous Cell Carcinoma Encounter Details Date Type Department Care Team (Latest Contact Info) Description 05/04/2016 1:00 PM EDT Procedure visit Dermatology at [facility] [address] [place] [address] Alexander Sage MD [facility] [place] [address] Squamous cell carcinoma of back (Primary Dx) [...] Alexander Sage MD during the day at [phone] Nurse: Lalitha [phone] After 5 PM and on weekends, please call the hospital number , and ask for the Family And Consumer Science Professor system administration advisor. documented in this encounter Progress Notes * Alexander Sage MD - 05/04/2016 1:00 PM EDT Procedure note: Attending: Alexander Sage MD Chief Security And Safety Officer: Lalitha Shannon LPN Referring MD: Carroll Fuentes [...] to call the clinic or the on-call small stock facer over the weekend. ??? Name of Procedure? [...] Report (05/04/2016 2:34 PM EDT) Final Diagnosis [id number] ?Location: HDM The signing pathologist has (i) [...] (2-7). (T7) ??pps 05/06/2016 6:09 PM EDT [facility] SPECIMEN FROM SKIN / Unknown 05/04/2016 2:34 PM EDT 05/04/2016 2:34 PM EDT SPECIMEN FROM SKIN / Unknown 05/04/2016 2:34 PM EDT 05/04/2016 2:34 PM EDT Alexander Sage MD PATHOLOGY/CYTOLOGY O UMESH Performing Organization Address City/[facility]/ZIP Co de Phone Number [facility] [place] [address] * Specimen to Pathology (NON-OR) (05/04/2016 2:34 PM EDT) AP Specimen 05/04/2016 2:34 PM EDT 05/04/2016 3:36 PM EDT Narrative [facility] - 05/04/2016 3:36 PM EDT Specimen requisition ordered. ??Separate Pathology report to follow Resulting Agency Comment Spec In Lab Alexander Sage MD PATHOLOGY/CYTOLOGY O UMESH Performing Organization Address City/[facility]/[place] [address] documented in this encounter Visit Diagnoses Diagnosis Squamous cell carcinoma of back- Primary Squamous cell carcinoma of skin of trunk, except scrotum documented in this encounter Care Teams Director Peoplesoft Relationship Specialty Start Date End Date Carroll Fuentes DO [address] [place] [address] PCP - General 09/23/11 10/20/22 documented as of this encounter
--- OUTSIDE RECORDS SUMMARY | 2024-05-23 13:35 | XMS_ITS | Encounter Summary ---
Author Organization [facility] Address [facility] [place] [address] Care Team Providers Care Laboratory Machinist Name Role Phone AlfredoCarroll allison Primary Care Provider [phone] Reason for Visit * Auth/Cert Specialty Diagnoses / Procedures Referred By Shashi ko Referred To Contact Diagnoses open defect cheek Procedures PRO ADJ TISS XFER HEAD, FAC, HAND 10.1-30 ADJ.TISSUE TRANSFER, REARRANGEMENT, 10.1 TO 30 SQ.CM, CHEEK Referral ID Status Reason Start Date Expiration Date Visits Re quested Visits Authorized [id number] 1 1 Encounter Details Date Type Department Care Team (Late st Contact Info) Description 02/20/2016 11:41 AM EDT Anesthesia Event [place] [address] Cathy Smith MD [facility] [address] Cally Olson, RECOVERY MANAGER [address] [facility] [address]1 [place] [address] Anesthesia Record Procedure Summary Procedure Name Responsible [...] cephalic vein right (lateral side of arm); xivp-vmk-[id number] catheter system; 18 gauge, 1 in length; [...] Sherwood MD - 02/21/2016 9:31 AM EDT [facility] Department of Anesthesiology Post-procedure Note Patient: Adama Ram Procedure Summary Date Anesthesia Start Anesthesia Stop Room / Location 02/20/16 1141 1414 [facility] OR / MH MAIN OR Procedure Diagnosis Surgeon Responsible Provider DEBRIDEMENT SKIN AND SUBCU, HEAD/NECK (Left Neck); SPLIT THICKNESS SKIN SPLIT GRAFT,100SQ CM OR LESS, NECK (N/A Leg Upper) Skin cancer; Surgical defect of skin (open defect cheek) Miguel Angel Moreno MD Williams, Adrienne P, MD All Anesthesia Providers: Anesthesiologist: Cathy Smith MD Interactive Video Technician: Jose Manuel Sherwood MD Last (1hr) Vitals: BP Temp Pulse Resp SpO2 Patient Location: PACU/[facility] Level of Consciousness: Conscious but Sleepy Pain [...] UPPER EXTREMITY performed by SABRINA SANCHEZ at [facility] MAIN OR ? ? Pro exc skin malig >4cm trunk, arm, leg 04/19/2012 EXC MALIGNANT LESION, MICHAEL > 4.0CM, TRUNK performed by SABRINA SANCHEZ at [facility] MAIN OR ??? Pro vascular surgery procedure unlist Left 11/20/2015 LIGATION\REPAIR AV FISTULA performed by Camilo Ireland MD at [facility] MAIN OR ??? Pro vascular surgery procedure unlist Left 11/20/2015 EXCISION VEIN FROM HAND performed by Camilo Ireland MD at [facility] MAIN OR ??? Pro exc skin malig 3.1-4cm face, facial Left 02/05/2016 EXC MALIGNANT LESION, 3.1 TO 4.0CM, FACE performed by Miguel Angel Moreno MD at [facility] MAIN OR ??? Pro exc parotd, total, unilat rad neck Left 02/05/2016 @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, TOTAL, WITH UNILATERAL RADICAL NECK DISSECTION performed by Miguel Angel Moreno MD at [facility] MAIN OR Social History Substance Use Topics [...] mg documented in this encounter Care Teams Laboratory Machinist Relationship Specialty Start Date End Date Carroll Fuentes DO [address] [place] [address] PCP - General 09/23/11 10/20/22 documented as of this encounter
--- OUTSIDE RECORDS SUMMARY | 2024-05-23 13:35 | XMS_ITS | Encounter Summary ---
Author Organization [facility] [place] [address] Care Team Providers Care Electrochemist Name Role Phone LafredoCarroll allison Primary Care Provider [phone] Encounter Details Date Type Department Care Team (Latest Contact Info) Description 10/25/2016 10:36 AM EDT - 10/25/2016 11:59 PM EDT Hospital [place] [address] Discharge Disposition: Home Social History Tobacco Use [...] 12:10 PM EDT) Hours Collected 24 hour(s) [facility] Total Volume 2,500 mL [facility] Urine specimen (specimen) Urine / Unknown 10/25/2016 12:10 PM EDT 10/26/2016 12:15 PM EDT Narrative Resulting Agency Comment Spec In Lab Anup Hawkins MD CHEMISTRY ORDERAB LES Performing Organization Address City/[facility]/ZIP Co de Phone Number [facility] [place] [address] * Phosphorus, urine, 24 hour (10/25/2016 12:10 PM EDT) Phosphorus Concentration, U24 31.5 mg/dL [facility] Phosphorus, 24 Hour Urine 0.8 0.4 - 1.3 gm/24hr [facility] Urine specimen (specimen) Urine / Unknown 10/25/2016 12:10 PM EDT 10/26/2016 12:15 PM EDT Narrative Resulting Agency Comment Spec In Lab Anup Hawkins MD URINE ORDERABLES Performing Organization Address City/[facility]/ZIP Co de Phone Number [facility] [place] [address] * Uric acid, urine, 24 hour (10/25/2016 12:10 PM EDT) U24 Uric Conc 9.9 mg/dL [facility] Uric Acid, 24 Hour Urine 0.25 0.25 - 0.80 gm/24hr [facility] Urine specimen (specimen) Urine / Unknown 10/25/2016 12:10 PM EDT 10/26/2016 12:16 PM EDT Narrative Resulting Agency Comment Spec In Lab Anup Hawkins MD URINE ORDERABLES Performing Organization Address City/[facility]/ZIP Co de Phone Number [facility] [place] [address] * (ABNORMAL) Calcium, urine, 24 hour (10/25/2016 12:10 PM EDT) Ca Concentration, U24 <0.8 mg/dL [facility] Calcium, 24 Hour Urine <20.0(L) 50.0 - 300.0 mg/24hr [facility] Comment:Reference Range: 50. 0-300.0 mg/24 hour based on diet. Urine specimen (specimen) Urine / Unknown 10/25/2016 12:10 PM EDT 10/26/2016 12:15 PM EDT Narrative Resulting Agency Comment Spec In Lab Anup Hawkins MD URINE ORDERABLES Performing Organization Address City/[facility]/ZIP Co de Phone Number [facility] [place] [address] * (ABNORMAL) Creatinine Clearance, urine, 24 hour (10/25/2016 12:10 PM EDT) Creatinine Clearance, 24 Hour Urine 45(L) 90 - 139 mL/min [facility] Cre Concentration, U24 60 mg/dL [facility] Creatinine, 24 Hour Urine 1.50 0.80 - 1.90 gm/24hr [facility] Urine specimen (specimen) Urine / Unknown 10/25/2016 12:10 PM EDT 10/26/2016 11:57 AM EDT Narrative Resulting Agency Comment Spec In Lab Anup Hawkins MD URINE ORDERABLES Performing Organization Address [facility] Co de Phone Number [facility] [place] [address] * Creatinine, urine, 24 hour (10/25/2016 12:10 PM EDT) Cre Concentration, U24 60 mg/dL [facility] Creatinine, 24 Hour Urine 1.50 0.80 - 1.90 gm/24hr [facility] Urine specimen (specimen) Urine / Unknown 10/25/2016 12:10 PM EDT 10/26/2016 11:57 AM EDT Narrative Resulting Agency Comment Spec In Lab Anup Hawkins MD URINE ORDERABLES Performing Organization Address [facility] Co de Phone Number [facility] [place] [address] * (ABNORMAL) Protein, urine, 24 hour (10/25/2016 12:10 PM EDT) Protein Concentration, U24 18 <=80 mg/dL [facility] Protein, 24 Hour Urine 0.45(H) <=0.15 gm/24hr [facility] Urine specimen (specimen) Urine / Unknown 10/25/2016 12:10 PM EDT 10/26/2016 11:57 AM EDT Narrative Resulting Agency Comment Spec In Lab Anup Hawkins MD URINE ORDERABLES Performing Organization Address [facility] Co de Phone Number [facility] [place] [address] documented in this encounter Visit Diagnoses Not on filedocumented in this encounter Care Teams Electrochemist Relationship Specialty Start Date End Date Carroll Fuentes DO [address] [place] [address] [address] [place] [address] PCP - General 09/23/11 10/20/22 documented as of this encounter
--- OUTSIDE RECORDS SUMMARY | 2024-05-23 13:35 | XMS_ITS | Encounter Summary ---
[place] [address] Care Team Providers Care Restaurant Culinary Manager Name Role Phone AlfredoCarroll allison Primary Care Provider [phone] Reason for Visit * Reason Onset Date Comments Medication Refill 03/24/2016 Encounter Details Date Type Department Care Team (Late st Contact Info) Description 03/24/2016 Refill [place] [phone] Crystal Brown CMA S/P kidney transplant Social [...] Confirmed pharmacy with patient. April daniels in [place], [place] documented in this encounter Plan of Treatment Not on file documented as of this encounter Visit Diagnoses Diagnosis S/P kidney transplant Kidney replaced by transplant documented in this encounter Care Teams Restaurant Culinary Manager Relationship Specialty Start Date End Date Carroll Fuentes DO [address] [place], [place] [address]Y [facility] [address] [place] [address] PCP - General 09/23/11 10/20/22 documented as of this encounter
--- OUTSIDE RECORDS SUMMARY | 2024-05-23 13:35 | XMS_ITS | Encounter Summary ---
Author Organization [facility] Address [facility] [place] [address] Care Team Providers Care Radio Repairer Domestic Name Role Phone AlfredoCarroll allison Primary Care Provider Reason for Visit * Auth/Cert Specialty Diagnoses / Procedures Referred By Shashi ko Referred To Contact Diagnoses open defect cheek Procedures PRO ADJ TISS XFER HEAD, FAC, HAND 10.1-30 ADJ.TISSUE TRANSFER, REARRANGEMENT, 10.1 TO 30 SQ.CM, CHEEK Referral ID Status Reason Start Date Expiration Date Visits Re quested Visits Authorized [id number] 1 1 Encounter Details Date Type Department Care Team (Latest Contact Info) Description 02/20/2016 10:05 AM EDT - 02/20/2016 4:53 PM EDT Hospital Encounter [place] [phone] Miguel Angel Barajas MD [facility] [place] [address] End stage renal disease; Anticoagulated on Coumadin; [...] -You can reach the ENT clinic at [phone] for appointment questions. -The ENT triage nurse is available at [phone] -For urgent issues during evenings and weekends the ENT resident hospital personnel director can be reached through [facility] cellophane bag machine operator at [phone] documented in this encounter Medications at Time [...] Cheng MD - 02/20/2016 1:48 PM EDT [facility] Operative Note Patient Name: Adama Ram : [id number] MR#: [id number] Case Date: 02/20/2016 Surgeon: Surgeon(s) and Role: * Miguel Angel Barajas MD - Primary * Paxton Cheng MD - Resident-Copy Supervisor Preoperative diagnosis: open defect cheek Postoperative diagnosis: [...] Performing Organization Address [facility] Co de Phone Number [facility] [place] [address] * (ABNORMAL) Potassium (02/20/2016 10:22 AM EDT) [...] Performing Organization Address [facility] Co de Phone Number [facility] [place] [address] documented in this encounter Visit Diagnoses Diagnosis [...] Routine documented in this encounter Care Teams Radio Repairer Domestic Relationship Specialty Start Date End Date Carroll Fuentes DO [address] [place] [address] [address] [facility] [address] [place] [address] PCP - General 09/23/11 10/20/22 documented as of this encounter
--- OUTSIDE RECORDS SUMMARY | 2024-05-23 13:35 | XMS_ITS | Encounter Summary ---
Author Organization [facility] Address [place] [address] Care Team Providers Care Studio Associate Name Role Phone Carroll Fuentes DO Primary Care Provider Reason for Visit * Reason Onset Date Comments Medication Refill 10/12/2016 Encounter Details Date Type Department Care Team (Late st Contact Info) Description 10/12/2016 [place] [address] Alfonzo Miles MD [facility] [place] [address] Social History Tobacco Use Types Packs/Day Years [...] on filedocumented in this encounter Care Teams Studio Associate Relationship Specialty Start Date End Date Carroll Fuentes DO [address] [place] [address] PCP - General 09/23/11 10/20/22 documented as of this encounter
--- OUTSIDE RECORDS SUMMARY | 2024-05-23 13:35 | XMS_ITS | Encounter Summary ---
Author Organization [facility] Address [facility] [place] [address] Care Team Providers Care Milling/Polishing Operator Name Role Phone AlfredoCarroll allison Primary Care Provider [phone] Reason for Visit * Reason Comments Kidney Transplant Follow-up Immunotherapy Encounter Details Date Type Department Care Team (Latest Contact Info) Description 05/20/2016 9:30 AM EST Office Visit [place] [address] Anup Hawkins MD [facility] [place] [address] Kidney replaced by transplant; Aftercare following organ [...] Oca, DO - 05/20/2016 9:30 AM EST [facility] Transplant Nephrology Follow Up Date: 05/20/16 Patient: [...] for diabetics, every 5 for non diabetics [place] kidney ultrasound looking for renal cell CA, [...] by mouth daily. 02/12/16 02/11/17 Yes Anup Hawkisn MD DILTiazem (DILTIAZEM CD) 120 mg Capsule, [...] yr), Nuclear stress test, Ultrasound renal of [place] kidney. Given Prevnar 13 vaccine today. Immunosuppression -Prograf 1mg/1mg -Cellcept 750mg PO BID PO4/Mg -Phos 3.9. -Mag 0.77 Hypertension BP 110's at home -Continue Hydralazine, Diltiazem, Metoprolol, Losartan Follow up: RTC 6 months Seen and Discussed w/ Dr. Ross Montes De Oca, DO Pager #[phone] I reviewed all of the above findings [...] EST) Glucose 68 65 - 199 mg/dL [facility] Comment:Diabetes: >=200 mg/d L plus symptoms Blood Urea Nitrogen 50(H) 10 - 20 mg/dL [facility] Creatinine 2.13(H) 0.80 - 1.50 mg/dL [facility] Comment: Please note that the pediatric reference intervals supplied above were not validated at [facility]. Results from pediatric patients should be interpreted in conjunction to the patient's age, height and muscle mass. Sodium 142 135 - 145 mmol/L [facility] [...] 107 mmol/L [facility] Carbon Dioxide 17(L) 22 - 31 mmol/L [facility] Anion Gap 15 5 - 15 mmol/L [facility] Calcium 8.8 8.5 - 10.5 mg/dL [facility] Protein, Total 6.8 6.1 - 8.0 gm/dL [facility] Albumin 4.5 3.2 - 5.2 gm/dL [facility] Aspartate Aminotransferase 16 0 - 39 unit/L [facility] Alanine Aminotransferase 11 0 - 55 unit/L [facility] Alkaline Phosphatase 103 40 - 120 unit/L [facility] Bilirubin, Total 0.4 0.2 - 1.3 mg/dL [facility] Bilirubin, Direct 0.1 0.0 - 0.3 mg/dL [facility] Est Glomerular Filtration Rate 33(L) >=60 [facility] Comment: This estimated GFR (eGFR) [...] the following links into your internet browser. http://[employer]/DHnkdep http://[employer]/DHMCnkf Blood specimen (specimen) 05/20/2016 8:54 AM EST 05/20/2016 9:08 AM EST Narrative Resulting Agency Comment Spec In Lab Anup Hawkins MD CHEMISTRY ORDERAB LES Performing Organization Address [facility] de Phone Number [facility] [place] [address] * Magnesium (05/20/2016 8:54 AM EST) Magnesium 0.77 0.69 - 1.07 mmol/L [facility] Blood specimen (specimen) 05/20/2016 8:54 AM EST 05/20/2016 9:08 AM EST Narrative Resulting Agency Comment Spec In Lab Anup Hawkins MD CHEMISTRY ORDERAB LES Performing Organization Address [facility] de Phone Number [facility] [place] [address] * Phosphorus (05/20/2016 8:54 AM EST) Phosphorus 3.9 2.5 - 4.5 mg/dL [facility] Blood specimen (specimen) 05/20/2016 8:54 AM EST 05/20/2016 9:08 AM EST Narrative Resulting Agency Comment Spec In Lab Anup Hawkins MD CHEMISTRY ORDERAB LES Performing Organization Address [facility] Co de Phone Number [facility] [place] [address] * Uric acid (05/20/2016 8:54 AM EST) Uric Acid 5.2 3.5 - 8.5 mg/dL [facility] Blood specimen (specimen) 05/20/2016 8:54 AM EST 05/20/2016 9:08 AM EST Narrative Resulting Agency Comment Spec In Lab Anup Hawkins MD CHEMISTRY ORDERAB LES Performing Organization Address [facility] Co de Phone Number [facility] [place] [address] * Tacrolimus level (05/20/2016 8:54 AM EST) Tacrolimus 3.1 ng/mL [facility] Comment: Trough therapeutic: ??5-15 ng/mL Performed by ultra-performance liquid chromatography tandem mass spectrometry (UPLCMS/MS). Blood specimen (specimen) 05/20/2016 8:54 AM EST 05/20/2016 11:29 AM EST Narrative Resulting Agency Comment Spec In Lab Anup Hawkins MD CHEMISTRY ORDERAB LES Performing Organization Address [facility] Co de Phone Number [facility] [place] [address] * Reticulocyte Count (05/20/2016 8:54 AM EST) Reticulocyte % 0.9 0.7 - 2.6 % [facility] Retic Abs # 0.030 0.030 - 0.120 x10(6)/mcL [facility] Immature Retic% 6.1 0.0 - 15.6 % [facility] Reticulated Hgb 33.0 31.3 - 40.2 pg [facility] Blood specimen (specimen) 05/20/2016 8:54 AM EST 05/20/2016 9:08 AM EST Narrative Resulting Agency Comment Spec In Lab Anup Hawkins MD HEMATOLOGY ORDERA BLES Performing Organization Address [facility] Co de Phone Number [facility] [place] [address] * Cholesterol, total (05/20/2016 8:54 AM EST) Cholesterol, Total 131 <=199 mg/dL [facility] Comment: Recommendations of the NCEP Adult Treatment Panel for the following risk cutoff thresholds for the [place] population: Desirable: <200 mg/dL Borderline High: 200-239 mg/dL High: > or = 240 mg/dL Blood specimen (specimen) 05/20/2016 8:54 AM EST 05/20/2016 9:08 AM EST Narrative Resulting Agency Comment Spec In Lab Anup Hawkins MD CHEMISTRY ORDERAB LES Performing Organization Address [facility] Co de Phone Number [facility] [place] [address] * (ABNORMAL) Protein/Creatinine Ratio, urine (05/20/2016 8:46 AM EST) Creatinine, Urine 97 mg/dL [facility] Protein, Urine 44(H) 0 - 12 mg/dL [facility] Protein / Creatinine Ratio, Urine 0.5 ratio [facility] Urine specimen (specimen) 05/20/2016 8:46 AM EST 05/20/2016 8:56 AM EST Narrative Resulting Agency Comment Spec In Lab Anup Hawkins MD URINE ORDERABLES Performing Organization Address [facility] Co de Phone Number [facility] [place] [address] * (ABNORMAL) Urinalysis with reflex Culture (05/20/2016 8:46 AM EST) Glucose, Urine Dipstick Negative Negative mg/dL [facility] Protein, Urine Dipstick 30(A) Negative mg/dL [facility] Bilirubin, Urine Dipstick Negative Negative mg/dL [facility] Comment: Clinical correlation required for positive Urine Bilirubin results as false positive may occur with some drugs and drug related products. If a false positive is suspected a serum total bilirubin should be considered if clinically indicated. Urobilinogen, Urine Dipstick Normal Normal mg/dL [facility] pH, Urn (dipstick) 5.0 5.0 - 8.0 [facility] Blood, Urine Dipstick Negative Negative mg/dL [facility] Ketone, Urine Dipstick Negative Negative mg/dL [facility] Nitrite, Urine Dipstick Negative Negative [facility] Leukocytes, Urine Dipstick Negative Negative [facility] Appearance, Urine Dipstick Clear Clear [facility] Specific [place] Urine Automated 1.016 1.002 - 1.030 [facility] Color, Urine Dipstick Yellow Yellow [facility] RBC, Urine Not Present 0 - 3 /HPF [facility] WBC, Urine <1 0 - 3 /HPF [facility] Squamous Epithelial Cells, Urine <1 <=4 /HPF [facility] Reflex to Culture No [facility] Urine specimen (specimen) 05/20/2016 8:46 AM EST 05/20/2016 8:55 AM EST Narrative Resulting Agency Comment Spec In Lab Anup Hawkins MD URINE ORDERABLES Performing Organization Address City/State/[facility] Co de Phone Number [facility] [place] [address] documented in this encounter Visit Diagnoses Diagnosis Kidney replaced by transplant Aftercare following organ transplant Prophylactic immunotherapy Need for prophylactic immunotherapy documented in this encounter Care Teams Milling/Polishing Operator Relationship Specialty Start Date End Date Carroll Fuentes DO [address] [place] [address] PCP - General 09/23/11 10/20/22 documented as of this encounter
--- OUTSIDE RECORDS SUMMARY | 2024-05-23 13:35 | XMS_ITS | Encounter Summary ---
Author Organization [facility] [place] [address] Care Team Providers Care Blowing Engineer Name Role Phone Carroll Fuentes DO Primary Care Provider [phone] Reason for Visit * Reason Comments Follow Up Surgery 2wk f/u, s/p skin ca removal Encounter Details Date Type Department Care Team (Late st Contact Info) Description 03/12/2016 11:20 AM EDT Office [place] [phone] Miguel Angel Moreno MD [facility] [place] [address] S/P split thickness skin graft; Excessive granulation [...] Moreno MD - 03/12/2016 11:20 AM EDT [facility] Otolaryngology - Head & Neck Surgery Office [...] tissue documented in this encounter Care Teams Blowing Engineer Relationship Specialty Start Date End Date Carroll Fuentes DO [address] [place] [address] PCP - General 09/23/11 10/20/22 documented as of this encounter
--- OUTSIDE RECORDS SUMMARY | 2024-05-23 13:35 | XMS_ITS | Encounter Summary ---
Author Organization [facility] Address [facility] [place] [address] Care Team Providers Care Rn International Name Role Phone AlfredoCarroll allison Primary Care Provider [phone] Encounter Details Date Type Department Care Team (Latest Contact Info) Description 10/26/2016 10:37 AM EDT - 10/26/2016 11:59 PM EDT Hospital [place] [address] Discharge Disposition: Home Social History Tobacco Use [...] on filedocumented in this encounter Care Teams Rn International Relationship Specialty Start Date End Date Carroll Fuentes DO [address] [place] [address] [address] [place] [address] PCP - General 09/23/11 10/20/22 documented as of this encounter
--- OUTSIDE RECORDS SUMMARY | 2024-05-23 13:35 | XMS_ITS | Encounter Summary ---
Author Organization [place] [address] Care Team Providers Care Dry Sand Molder Name Role Phone AlfredoCarroll allison Primary Care Provider Encounter Details Date Type Department Care Team (Latest Contact Info) Description 07/06/2016 8:50 PM EST - 07/06/2016 11:59 PM [facility] Hospital [place] [address] Discharge Disposition: Home Social History Tobacco Use [...] (07/06/2016 10:20 AM EST) Tacrolimus 7.6 ng/mL [facility] Comment: Trough therapeutic: ??5-15 ng/mL Performed by ultra-performance liquid chromatography tandem mass spectrometry (UPLCMS/MS). Blood specimen (specimen) Venous Draw / Unknown 07/06/2016 10:20 AM EST 07/08/2016 8:18 AM EST Narrative Resulting Agency Comment Spec In Lab Anup Hawkins MD CHEMISTRY ORDERAB LES [facility] [place] [phone] documented in this encounter Visit Diagnoses Not on filedocumented in this encounter Care Teams Dry Sand Molder Relationship Specialty Start Date End Date Carroll Fuentes DO [address] [place] [address] PCP - General 09/23/11 10/20/22 documented as of this encounter
--- OUTSIDE RECORDS SUMMARY | 2024-05-23 13:35 | XMS_ITS | Encounter Summary ---
Author Organization [facility] [place] [address] Care Team Providers Care Hood Maker Name Role Phone Carroll Fuentes DO Primary Care Provider [phone] Reason for Visit * Reason Comments Medication Refill Encounter Details Date Type Department Care Team (Late st Contact Info) Description 07/09/2016 Refill [place] [address] Anup Hawkins MD [facility] [place] [address] High level of uric acid in blood [...] chemistry documented in this encounter Care Teams Hood Maker Relationship Specialty Start Date End Date Carroll Fuentes DO [address] [place], [place] [address] PCP - General 09/23/11 10/20/22 documented as of this encounter
--- OUTSIDE RECORDS SUMMARY | 2024-05-23 13:35 | XMS_ITS | Encounter Summary ---
Author Organization [facility] Address [facility] [place] [address] Care Team Providers Care Database Designer Name Role Phone Carroll Fuentes DO Primary Care Provider Reason for Visit * Reason Onset Date Comments Medication Refill 02/12/2016 Encounter Details Date Type Department Care Team (Late st Contact Info) Description 02/12/2016 [place] [address] Alfonzo Miles MD [facility] [place] [address] Social History Tobacco Use Types Packs/Day Years [...] on filedocumented in this encounter Care Teams Database Designer Relationship Specialty Start Date End Date Carroll Fuentes DO [address] [place] [address] PCP - General 09/23/11 10/20/22 documented as of this encounter
--- OUTSIDE RECORDS SUMMARY | 2024-05-23 13:35 | XMS_ITS | Encounter Summary ---
[place] [address] Care Team Providers Care Patternmaker Wood Name Role Phone AlfredoCarroll allison Primary Care Provider Encounter Details Date Type Department Care Team (Late st Contact Info) Description 02/28/2016 Telephone [place] [phone] Tosin David RN Social History Tobacco Use [...] - 02/28/2016 4:28 PM EDTAddended by: TOSIN DAVDI on: 02/28/2016 04:28 PM Modules accepted: Orders [...] filedocumented in this encounter Care Teams Patternmaker Wood Relationship Specialty Start Date End Date Carroll Fuentes DO [address] [place] [address] [address] [place] [address] PCP - General 09/23/11 10/20/22 documented as of this encounter
--- OUTSIDE RECORDS SUMMARY | 2024-05-23 13:35 | XMS_ITS | Encounter Summary ---
Author Organization [facility] [place] [address] Care Team Providers Care Electrician Radio Name Role Phone AlfredoCarroll geiger Primary Care Provider Encounter Details Date Type Department Care Team (Late st Contact Info) Description 05/19/2016 Telephone [place] [address] Nilda Maravilla, RN Social History Tobacco Use [...] on filedocumented in this encounter Care Teams Electrician Radio Relationship Specialty Start Date End Date Carroll Fuentes DO [address] [facility] [place] [address] PCP - General 09/23/11 10/20/22 documented as of this encounter
--- OUTSIDE RECORDS SUMMARY | 2024-05-23 13:35 | XMS_ITS | Encounter Summary ---
[place] [address] Care Team Providers Care Manager Pathology Name Role Phone Carroll Fuentes DO Primary Care Provider Reason for Visit * Reason Onset Date Comments Medication Refill 03/17/2016 Encounter Details Date Type Department Care Team (Late st Contact Info) Description 03/17/2016 Refill [place] [address] Tosha Castro, RN S/P kidney transplant Social [...] transplant documented in this encounter Care Teams Manager Pathology Relationship Specialty Start Date End Date Carroll Fuentes DO [address] [place] [address] PCP - General 09/23/11 10/20/22 documented as of this encounter
--- OUTSIDE RECORDS SUMMARY | 2024-05-23 13:35 | XMS_ITS | Encounter Summary ---
Author Organization [facility] Address [facility] [place] [address] Care Team Providers Care Machine Sorter Name Role Phone Alfredo Carroll MIX Primary Care Provider [phone] Reason for Visit * Reason Onset Date Comments Pre Procedure Call 04/28/2016 Encounter Details Date Type Department Care Team (Late st Contact Info) Description 04/28/2016 Telephone Dermatology at [facility] [address] [place] [address] Lalitha Shannon LPN Pre Procedure [...] filedocumented in this encounter Care Teams Machine Sorter Relationship Specialty Start Date End Date Carroll Fuentes DO [address] [place] [address] PCP - General 09/23/11 10/20/22 documented as of this encounter
--- OUTSIDE RECORDS SUMMARY | 2024-05-23 13:35 | XMS_ITS | Encounter Summary ---
Author Organization [facility] [place] [address] Care Team Providers Care Artifacts Conservator Name Role Phone AlfredoCarroll allison Primary Care Provider Encounter Details Date Type Department Care Team (Latest Contact Info) Description 09/09/2016 7:50 PM EST - 09/09/2016 11:59 PM [facility] Hospital [place] [address] Discharge Disposition: Home Social History Tobacco Use [...] (09/09/2016 1:40 PM EST) Tacrolimus 4.8 ng/mL [facility] Comment: Trough therapeutic: ??5-15 ng/mL Performed by ultra-performance liquid chromatography tandem mass spectrometry (UPLCMS/MS). Blood specimen (specimen) Venous Draw / Unknown 09/09/2016 1:40 PM EST 09/10/2016 7:15 AM EST Narrative Resulting Agency Comment Spec In Lab Anup Hawkins MD CHEMISTRY ORDERAB LES [facility] [place] [phone] documented in this encounter Visit Diagnoses Not on filedocumented in this encounter Care Teams Artifacts Conservator Relationship Specialty Start Date End Date Carroll Fuentes DO [address] [place] [address] PCP - General 09/23/11 10/20/22 documented as of this encounter
--- OUTSIDE RECORDS SUMMARY | 2024-05-23 13:35 | XMS_ITS | Encounter Summary ---
Author Organization [facility] Address [facility] [place] [address] Care Team Providers Care Torpedo Worker Name Role Phone Alfredo, Carroll MIX Primary Care Provider Reason for Visit * Reason Onset Date Comments Pre Procedure Call 04/29/2016 Encounter Details Date Type Department Care Team (Late st Contact Info) Description 04/29/2016 Telephone Dermatology at [facility] [address] [place] [address] Lalitha Shannon LPN Pre Procedure [...] on filedocumented in this encounter Care Teams Torpedo Worker Relationship Specialty Start Date End Date Carroll Fuentes DO [address] [facility] [address] [facility] [address] [place] [address] PCP - General 09/23/11 10/20/22 documented as of this encounter
--- OUTSIDE RECORDS SUMMARY | 2024-05-23 13:35 | XMS_ITS | Encounter Summary ---
Author Organization [facility] [place] [address] Care Team Providers Care Chicle Grinder Feeder Name Role Phone AlfredoCarroll geiger Primary Care Provider [phone] Encounter Details Date Type Department Care Team (Latest Contact Info) Description 05/20/2016 8:30 AM EST Laboratory Appointment Lab [address] [place] [address] Kidney replaced by transplant Social History Tobacco [...] 8:54 AM EST) Neutrophil % 74.4 % [facility] Neutrophil Absolute 4.08 1.70 - 6.10 x10(3)/mc L [facility] Lymph % 14.8 % [facility] Lymphocytes Abs 0.8(L) 0.9 - 3.2 x10(3)/mc L [facility] Monocyte % 8.2 % [facility] Monocyte Abs 0.4 0.3 - 0.9 x10(3)/mc L [facility] Eos % 2.0 % [facility] Eosinophils Abs 0.1 0.0 - 0.4 x10(3)/mc L [facility] Basophil % 0.4 % [facility] Baso Absolute 0.0 [...] Absolute 0.01 0.00 - 0.04 x10(3)/ L [facility] Blood specimen (specimen) 05/20/2016 8:54 AM EST 05/20/2016 9:08 AM EST Narrative Resulting Agency Comment Spec In Lab Anup Hawkins MD HEMATOLOGY ORDERA BLES [facility] [place] [address] * (ABNORMAL) Hemogram (05/20/2016 8:54 AM EST) White Blood Cell 5.5 4.0 - 9.5 x10(3)/[facility] Red Blood Cell 3.46(L) 4.58 - 5.54 x10(6)/ L [facility] Hemoglobin 10.1(L) 13.7 - 16.5 gm/dL [facility] Hematocrit 31.9(L) 40.5 - 48.5 % [facility] Mean Cell Volume 92.2 82.9 - 93.1 fL [facility] Mean Cell Hemoglobin 29.2 27.5 - 32.1 pg [facility] Mean Cell Hemoglobin Concentration 31.7(L) 32.0 - 35.7 gm/dL [facility] Platelet 184 145 - 357 x10(3)/ L [facility] RDW Standard Deviation 48.3(H) 36.0 - 45.0 fL [facility] RDW coefficient of variation 14.3(H) 11.4 - 13.8 % [facility] Mean Platelet Volume 9.6 7.6 - 12.9 fL [facility] NRBC% auto 0.0 % [facility] NRBC Absolute 0.000 0.000 - 0.000 x10(3)/mc L [facility] Blood specimen (specimen) 05/20/2016 8:54 AM EST 05/20/2016 9:08 AM EST Narrative Resulting Agency Comment Spec In Lab Anup Hawkins MD HEMATOLOGY ORDERA BLES [facility] [place] [address] * (ABNORMAL) Comprehensive metabolic panel (non-fasting) (05/20/2016 8:54 AM EST) Glucose 68 65 - 199 mg/dL [facility] Comment:Diabetes: >=200 mg/d L plus symptoms Blood Urea Nitrogen 50(H) 10 - 20 mg/dL [facility] Creatinine 2.13(H) 0.80 - 1.50 mg/dL [facility] Comment: Please note that the pediatric reference intervals supplied above were not validated at [facility]. Results from pediatric patients should be interpreted in conjunction to the patient's age, height and muscle mass. Sodium 142 135 - 145 mmol/L [facility] Potassium 4.4 3.5 - 5.0 mmol/L [facility] mmol/L [facility] Calcium 8.8 8.5 - 10.5 mg/dL [facility] Protein, Total 6.8 6.1 - 8.0 gm/dL [facility] Albumin 4.5 3.2 - 5.2 gm/dL [facility] Aspartate Aminotransferase 16 0 - 39 unit/L [facility] Alanine Aminotransferase 11 0 - 55 unit/L [facility] Alkaline Phosphatase 103 40 - 120 unit/L [facility] Bilirubin, Total 0.4 0.2 - 1.3 mg/dL [facility] Bilirubin, Direct 0.1 0.0 - 0.3 mg/dL [facility] Est Glomerular Filtration Rate 33(L) >=60 [facility] Comment: This estimated GFR [...] the following links into your internet browser. [email or web address] Blood specimen (specimen) 05/20/2016 8:54 AM EST 05/20/2016 9:08 AM EST Narrative Resulting Agency Comment Spec In Lab Anup Hawkins MD CHEMISTRY ORDERAB LES Performing Organization Address City/[facility] Co de Phone Number [facility] [place] [address] * Magnesium (05/20/2016 8:54 AM EST) Magnesium 0.77 0.69 - 1.07 mmol/L [facility] Blood specimen (specimen) 05/20/2016 8:54 AM EST 05/20/2016 9:08 AM EST Narrative Resulting Agency Comment Spec In Lab Anup Hawkins MD CHEMISTRY ORDERAB LES Performing Organization Address City/[facility]/ZIP Co de Phone Number [facility] [place] [address] * Phosphorus (05/20/2016 8:54 AM EST) Phosphorus 3.9 2.5 - 4.5 mg/dL [facility] Blood specimen (specimen) 05/20/2016 8:54 AM EST 05/20/2016 9:08 AM EST Narrative Resulting Agency Comment Spec In Lab Anup Hawkins MD CHEMISTRY ORDERAB LES Performing Organization Address [facility] Co de Phone Number [facility] [place] [address] * Uric acid (05/20/2016 8:54 AM EST) Uric Acid 5.2 3.5 - 8.5 mg/dL [facility] Blood specimen (specimen) 05/20/2016 8:54 AM EST 05/20/2016 9:08 AM EST Narrative Resulting Agency Comment Spec In Lab Anup Hawkins MD CHEMISTRY ORDERAB LES Performing Organization Address [facility] Co de Phone Number [facility] [place] [address] * Tacrolimus level (05/20/2016 8:54 AM EST) Tacrolimus 3.1 ng/mL [facility] Comment: Trough therapeutic: ??5-15 ng/mL Performed by ultra-performance liquid chromatography tandem mass spectrometry (UPLCMS/MS). Blood specimen (specimen) 05/20/2016 8:54 AM EST 05/20/2016 11:29 AM EST Narrative Resulting Agency Comment Spec In Lab Anup Hawkins MD CHEMISTRY ORDERAB LES Performing Organization Address [facility] Co de Phone Number [facility] [place] [address] * Reticulocyte Count (05/20/2016 8:54 AM EST) Reticulocyte % 0.9 0.7 - 2.6 % [facility] Retic Abs # 0.030 0.030 - 0.120 x10(6)/mcL [facility] Immature Retic% 6.1 0.0 - 15.6 % [facility] Reticulated Hgb 33.0 31.3 - 40.2 pg [facility] Blood specimen (specimen) 05/20/2016 8:54 AM EST 05/20/2016 9:08 AM EST Narrative Resulting Agency Comment Spec In Lab Anup Hawkins MD HEMATOLOGY ORDERA BLES Performing Organization Address [facility] Co de Phone Number [facility] [place] [address] * Cholesterol, total (05/20/2016 8:54 AM EST) Cholesterol, Total 131 <=199 mg/dL [facility] Comment: Recommendations of the NCEP Adult Treatment Panel for the following risk cutoff thresholds for the [place] population: Desirable: <200 mg/dL Borderline High: 200-239 mg/dL High: > or = 240 mg/dL Blood specimen (specimen) 05/20/2016 8:54 AM EST 05/20/2016 9:08 AM EST Narrative Resulting Agency Comment Spec In Lab Anup Hawkins MD CHEMISTRY ORDERAB LES Performing Organization Address [facility] de Phone Number [facility] [place] [address] * (ABNORMAL) Protein/Creatinine Ratio, urine (05/20/2016 8:46 AM EST) Creatinine, Urine 97 mg/dL [facility] Protein, Urine 44(H) 0 - 12 mg/dL [facility] Protein / Creatinine Ratio, Urine 0.5 ratio [facility] Urine specimen (specimen) 05/20/2016 8:46 AM EST 05/20/2016 8:56 AM EST Narrative Resulting Agency Comment Spec In Lab Anup Hawkins MD URINE ORDERABLES [facility] [place] [address] * (ABNORMAL) Urinalysis with reflex Culture (05/20/2016 8:46 AM EST) Glucose, Urine Dipstick Negative Negative mg/dL [facility] Protein, Urine Dipstick 30(A) Negative mg/dL [facility] [...] Clear [facility] Specific [place] Urine Automated 1.016 1.002 - 1.030 [facility] Color, Urine Dipstick Yellow Yellow [facility] RBC, Urine Not Present 0 - 3 /HPF [facility] WBC, Urine <1 0 - 3 /HPF [facility] Squamous Epithelial Cells, Urine <1 <=4 /HPF [facility] Reflex to Culture No [facility] Urine specimen (specimen) 05/20/2016 8:46 AM EST 05/20/2016 8:55 AM EST Narrative Resulting Agency Comment Spec In Lab Anup Hawkins MD URINE ORDERABLES [facility] [place] [address] documented in this encounter Visit Diagnoses Diagnosis Kidney replaced by transplant documented in this encounter Care Teams Chicle Grinder Feeder Relationship Specialty Start Date End Date Carroll Fuentes DO [address] [place], [place] [address]Y [facility] [address] [place] [address] PCP - General 09/23/11 10/20/22 documented as of this encounter
--- OUTSIDE RECORDS SUMMARY | 2024-05-23 13:35 | XMS_ITS | Encounter Summary ---
Author Organization [facility] [place] [address] Care Team Providers Care Freight Trucker Name Role Phone Carroll Fuentes DO Primary Care Provider Encounter Details Date Type Department Care Team (Late st Contact Info) Description 02/13/2016 Orders [place] [address] Miguel Angel Moreno MD [facility] [place] [address] Skin cancer; Surgical defect of skin Social [...] wound documented in this encounter Care Teams Freight Trucker Relationship Specialty Start Date End Date Carroll Fuentes DO [address] [place] [address] [address] [place] [address] PCP - General 09/23/11 10/20/22 documented as of this encounter
--- OUTSIDE RECORDS SUMMARY | 2024-05-23 13:35 | XMS_ITS | Encounter Summary ---
Author Organization [facility] [place] [address] Care Team Providers Care Securities Underwriter Name Role Phone AlfredoCarroll allison Primary Care Provider [phone] Encounter Details Date Type Department Care Team (Latest Contact Info) Description 05/26/2016 7:50 PM EST - 05/26/2016 11:59 PM [facility] [place] [address] Discharge Disposition: Home Social History Tobacco Use [...] (05/26/2016 2:55 PM EST) Tacrolimus 3.8 ng/mL [facility] Comment: Trough therapeutic: ??5-15 ng/mL Performed by ultra-performance liquid chromatography tandem mass spectrometry (UPLCMS/MS). Blood specimen (specimen) Venous Draw / Unknown 05/26/2016 2:55 PM EST 05/28/2016 7:37 AM EST Narrative Resulting Agency Comment Spec In Lab Anup Hawkins MD CHEMISTRY ORDERAB LES [facility] [place] [id number] documented in this encounter Visit Diagnoses Not on filedocumented in this encounter Care Teams Securities Underwriter Relationship Specialty Start Date End Date Carroll Fuentes DO [address] [place] [address] PCP - General 09/23/11 10/20/22 documented as of this encounter
--- OUTSIDE RECORDS SUMMARY | 2024-05-23 13:35 | XMS_ITS | Encounter Summary ---
Author Organization [facility] Address [facility] [place] [address] Care Team Providers Care Certified Pharmacy Tech Name Role Phone Carroll Fuentes DO Primary Care Provider [phone] Reason for Visit * Reason Comments Medication Refill Encounter Details Date Type Department Care Team (Late st Contact Info) Description 11/03/2016 Refill [place] [address] Anup Hawkins MD [facility] [place] [address] Social History Tobacco Use Types Packs/Day Years [...] on filedocumented in this encounter Care Teams Certified Pharmacy Tech Relationship Specialty Start Date End Date Carroll Fuentes DO [address] [place] [address] PCP - General 3/14/12 4/11/23 documented as of this encounter
--- OUTSIDE RECORDS SUMMARY | 2024-05-23 13:35 | XMS_ITS | Encounter Summary ---
Author Organization [facility] Address [facility] [place] [address] Care Team Providers Care Protein Specialist Name Role Phone Carroll Fuentes DO Primary Care Provider [phone] Reason for Visit * Reason Comments Other wound check Encounter Details Date Type Department Care Team (Late st Contact Info) Description 02/27/2016 11:00 AM EDT Office [place] [address] Mansoor Wells MD [facility] [place] [address] S/P split thickness skin graft; Wound drainage [...] complication documented in this encounter Care Teams Protein Specialist Relationship Specialty Start Date End Date Carroll Fuentes DO [address] [place] [address] PCP - General 09/23/11 10/20/22 documented as of this encounter
--- OUTSIDE RECORDS SUMMARY | 2024-05-23 13:35 | XMS_ITS | Encounter Summary ---
Author Organization [facility] Address [facility] [place] [address] Care Team Providers Care Band Nailer Name Role Phone AlfredoCarroll allison Primary Care Provider Encounter Details Date Type Department Care Team (Late st Contact Info) Description 02/26/2016 Telephone [place] [address] Angelica Anna RN Social History Tobacco Use [...] filedocumented in this encounter Care Teams Band Nailer Relationship Specialty Start Date End Date Carroll Fuentes DO [address] [place] [address] PCP - General 09/23/11 10/20/22 documented as of this encounter
--- OUTSIDE RECORDS SUMMARY | 2024-05-23 13:35 | XMS_ITS | Encounter Summary ---
[place] [address] Care Team Providers Care Deputy Chief Counsel Name Role Phone AlfredoCarroll allison Primary Care Provider [phone] Reason for Visit * Reason Onset Date Comments Medication Refill 02/13/2016 Encounter Details Date Type Department Care Team (Late st Contact Info) Description 02/13/2016 Telephone [place] [phone] Mirian Acosta CMA Medication Refill Social History [...] 500 MG tablet faxed to requested pharmacy, [facility] [place], [place] [address] [facility]. documented in this encounter Plan of Treatment Not on file documented as of this encounter Visit Diagnoses Not on filedocumented in this encounter Care Teams Deputy Chief Counsel Relationship Specialty Start Date End Date Carroll Fuentes DO [address] [facility] [address] [facility] [address] [place] [address] PCP - General 09/23/11 10/20/22 documented as of this encounter
--- OUTSIDE RECORDS SUMMARY | 2024-05-23 13:35 | XMS_ITS | Encounter Summary ---
[place] [address] Care Team Providers Care Family Development Extension Specialist Name Role Phone AlfredoCarroll allison Primary Care Provider [phone] Encounter Details Date Type Department Care Team (Latest Contact Info) Description 10/26/2016 11:00 AM EDT Laboratory Appointment Lab [address] [place] [address] H/O kidney transplant Social History Tobacco Use [...] EDT) Creatinine 2.33(H) 0.80 - 1.50 mg/dL [facility] Comment: Please note that the pediatric reference intervals supplied above were not validated at [facility]. Results from pediatric patients should be interpreted in conjunction to the patient's age, height and muscle mass. Est Glomerular Filtration Rate 29(L) >=60 [facility] Comment: This estimated [...] the following links into your internet browser. [email or web address] Blood specimen (specimen) 10/26/2016 10:20 AM EDT 10/26/2016 11:06 AM EDT Narrative Resulting Agency Comment Spec In Lab Anup Hawkins MD CHEMISTRY ORDERAB LES [facility] [place] [address] documented in this encounter Visit Diagnoses Diagnosis H/O kidney transplant Kidney replaced by transplant documented in this encounter Care Teams Family Development Extension Specialist Relationship Specialty Start Date End Date Carroll Fuentes DO [address] [place] [address] PCP - General 09/23/11 10/20/22 documented as of this encounter
--- OUTSIDE RECORDS SUMMARY | 2024-05-23 13:35 | XMS_ITS | Encounter Summary ---
Author Organization [facility] Address [facility] [place] [address] Care Team Providers Care Venetian Blind Tape Cutter Name Role Phone Carroll Fuentes DO Primary Care Provider [phone] Reason for Visit * Reason Comments Medication Refill Encounter Details Date Type Department Care Team (Late st Contact Info) Description 05/03/2016 Refill [place] [address] Anup Hawkins MD [facility] [place] [address] Social History Tobacco Use Types Packs/Day Years [...] on filedocumented in this encounter Care Teams Venetian Blind Tape Cutter Relationship Specialty Start Date End Date Carroll Fuentes DO [address] [place] [address] PCP - General 3/14/12 4/11/23 documented as of this encounter
--- OUTSIDE RECORDS SUMMARY | 2024-05-23 13:35 | XMS_ITS | Encounter Summary ---
Author Organization [facility] Address [facility] Laura [facility] [place] [address] Care Team Providers Care Chlorinator Operator Name Role Phone Carroll Fuentes DO Primary Care Provider [phone] Reason for Visit * Reason Onset Date Comments Medication Refill 02/12/2016 Encounter Details Date Type Department Care Team (Late st Contact Info) Description 02/12/2016 [place] [address] Alfonzo Miles MD [facility] [place] [address] Social History Tobacco Use Types Packs/Day Years [...] evening 30 or 90 Day: 30 Pharmacy: [facility] Last Appointment: 11/21/15 Next Appointment: 1 yr reminder for November 2016 Is Patient out of Medication?: almost documented in this encounter Plan of Treatment Not on file documented as of this encounter Visit Diagnoses Not on filedocumented in this encounter Care Teams Chlorinator Operator Relationship Specialty Start Date End Date Carroll Fuentes DO [address] [place] [address] PCP - General 09/23/11 10/20/22 documented as of this encounter
--- OUTSIDE RECORDS SUMMARY | 2024-05-23 13:35 | XMS_ITS | Encounter Summary ---
Author Organization [facility] [place] [address] Care Team Providers Care Sys Dir Name Role Phone AlfredoCarroll allison Primary Care Provider [phone] Encounter Details Date Type Department Care Team (Late st Contact Info) Description 10/26/2016 Orders Only [place] [address] Tosha Castro, RN H/O kidney transplant Social [...] (05/13/2017 5:08 PM EDT) UPPER GI ENDOSCOPY [facility] Endoscopy Procedure Date: 05/13/2017 5:08 PM ? Patient Name: Adama Ram ? Date of : 1960 ? Age: 56 ? Order #: [id number] ? Instrument Name: [id number] ? Procedure: ? Upper GI endoscopy Indications: ? Hematemesis, history of renal ? transplant on immunosuppression Providers: ? Aditya Barrera MD, Aditya Barrera, ? , Dona Londono RN, Miguel . ? Rhiannon, Athletic Coordinator Referring MD: ? Medicines: ? Monitored Anesthesia [...] Procedure Code(s): ?? --- Professional --- ? 22394, Esophagogastroduoden oscopy, ? flexible, transoral; with biopsy, ? single or multiple CPT copyright 2016 [employer]. All rights reserved. The codes documented in this report are preliminary and upon decision science analyst review may be revised to meet current [...] EDT) Creatinine 2.33(H) 0.80 - 1.50 mg/dL [facility] Comment: Please note that the pediatric reference intervals supplied above were not validated at [facility]. Results from pediatric patients should be interpreted in conjunction to the patient's age, height and muscle mass. Est Glomerular Filtration Rate 29(L) >=60 [facility] Comment: This estimated GFR (eGFR) [...] the following links into your internet browser. [email or web address] Blood specimen (specimen) 10/26/2016 10:20 AM EDT 10/26/2016 11:06 AM EDT Narrative Resulting Agency Comment Spec In Lab Anup Hawkins MD CHEMISTRY ORDERAB LES [facility] [place] [address] documented in this encounter Visit Diagnoses Diagnosis H/O kidney transplant Kidney replaced by transplant documented in this encounter Care Teams Sys Dir Relationship Specialty Start Date End Date Carroll Fuentes DO [address] [place] [address] PCP - General 09/23/11 10/20/22 documented as of this encounter
--- OUTSIDE RECORDS SUMMARY | 2024-05-23 13:36 | XMS_ITS | Encounter Summary ---
[place] [address] Care Team Providers Care Card Assembler Name Role Phone Carroll Fuentes DO Primary Care Provider [phone] Reason for Visit * Reason Onset Date Comments Medication Refill 01/27/2016 Encounter Details Date Type Department Care Team (Late st Contact Info) Description 01/27/2016 Refill [place] [address] Tosha Castro, RN S/P kidney transplant Social [...] transplant documented in this encounter Care Teams Card Assembler Relationship Specialty Start Date End Date Carroll Fuentes DO [address] [place] [address] PCP - General 09/23/11 10/20/22 documented as of this encounter
--- OUTSIDE RECORDS SUMMARY | 2024-05-23 13:36 | XMS_ITS | Encounter Summary ---
Author Organization [facility] Address [facility] [place] [address] Care Team Providers Care Recordist Name Role Phone Alfredo Sebastian MIX Primary [...] Expiration Date Visits Re quested Visits Authorized [id number] 1 1 Encounter Details Date Type Department Care Team (Late st Contact Info) Description 02/05/2016 7:30 AM EDT - 02/05/2016 9:43 AM EDT Surgery [place] [address] Miguel Angel Moreno MD [facility] [place] [address] EXC MALIGNANT LESION, 3.1 TO 4.0CM, FACE [...] -You can reach the ENT clinic at [phone] for appointment questions. -The ENT triage nurse is available at [phone] -For urgent issues during evenings and weekends the ENT resident fire control system installer can be reached through [facility] blender machine operator at [phone] Follow Up: You will need to follow up. Please see the appointments below. Currently Scheduled Appointments and VNA instructions: Future Appointments and Orders Future Appointments Provider Department Dept Phone 02/20/2016 1:30 PM Portillo Lujan PA Otolaryngology [phone] 03/03/2016 10:45 AM Bashir Benitez MD Dermatology at [place] [phone] 03/09/2016 1:30 PM Alexander Sage MD Dermatology at [facility] [phone] 05/20/2016 8:30 AM LAB, [facility] Lab 05/20/2016 9:30 AM Anup Hawkins MD Transplant [phone] 11/25/2016 10:30 AM LAB, [facility] Lab 3L [phone] 11/25/2016 11:30 AM Anup Hawkins MD Transplant [phone] Future Orders Complete By Expires Full code [...] __ Primary Care Doctor: SEBASTIAN FUENTES DO [phone] Signed: Damián Richter MD 02/06/2016 documented in [...] -You can reach the ENT clinic at [phone] for appointment questions. -The ENT triage nurse is available at [phone] -For urgent issues during evenings and weekends the ENT resident fire control system installer can be reached through [facility] blender machine operator at [phone] Follow Up: You will need to follow up. Please see the appointments below. Currently Scheduled Appointments and VNA instructions: Future Appointments and Orders Future Appointments Provider Department Dept Phone 02/20/2016 1:30 PM Portillo Lujan PA Otolaryngology [phone] 03/03/2016 10:45 AM Bashir Benitez MD Dermatology at [place] [phone] 03/09/2016 1:30 PM Alexander Sage MD Dermatology at [facility] [phone] 05/20/2016 8:30 AM LAB, [facility] Lab [phone] 05/20/2016 9:30 AM Anup Hawkins MD Transplant [phone] 11/25/2016 10:30 AM LAB, [facility] Lab 11/25/2016 11:30 AM Anup Hawkins MD Transplant [phone] Future Orders Complete By Expires Full code [...] Richter MD, PGY1 02/05/16 6:17 PM Pager: [phone] * Cassie Sarmiento RN - 02/05/2016 2:01 [...] Care Goal: Plan of Care Review 02/05/16 6362 Plan of Care Review Plan of Care [...] Moreno MD - 02/05/2016 2:17 PM EDT [facility] Operative Note Patient Name: Adama Ram : [id number] MR#: [id number] Case Date: 02/05/2016 Surgeon: Surgeon(s) and Role: [...] Procedure Name Priority Date/Time Associated Diagnosis Comments TRAVEL SPECIALIST SCAN 02/09/2016 12:00 AM EDT ECG SCAN [...] in this encounter Results * SCAN DOC: TRAVEL SPECIALIST (02/09/2016 12:00 AM EDT) Anatomical Region Laterality Modality Other Scanning Provider MEDIA MGR SCAN EXT O RDR/RSLT * SCAN DOC: ECG (02/06/2016 12:00 AM EDT) Scanning Provider MEDIA MGR SCAN EXT O RDR/RSLT * Specimen to Pathology (surgical or derm) (02/05/2016 10:44 AM EDT) AP Specimen 02/05/2016 10:4 4 AM EDT 02/05/2016 10:44 AM EDT Narrative [facility] - 02/05/2016 10:44 AM EDT Specimen requisition ordered. ??Separate Pathology report to follow Miguel Angel Moreno MD PATHOLOGY/CYTOLOGY ORDERABLES Performing Organization Address [facility] [place] [address] * Specimen to Pathology (surgical or derm) (02/05/2016 10:26 AM EDT) AP Specimen 02/05/2016 10:2 6 AM EDT 02/05/2016 10:26 AM EDT Narrative [facility] - 02/05/2016 10:26 AM EDT Specimen requisition ordered. ??Separate Pathology report to follow Miguel Angel Moreno MD PATHOLOGY/CYTOLOGY ORDERABLES Performing Organization Address [facility] [place] [address] * Specimen to Pathology (surgical or derm) (02/05/2016 10:20 AM EDT) AP Specimen 02/05/2016 10:2 0 AM EDT 02/05/2016 10:20 AM EDT Narrative [facility] - 02/05/2016 10:20 AM EDT Specimen requisition ordered. ??Separate Pathology report to follow Miguel Angel Moreno MD PATHOLOGY/CYTOLOGY ORDERABLES Performing Organization Address [facility] [place] [address] * Surgical Pathology Report (02/05/2016 10:19 AM EDT) Final Diagnosis [id number] ? Location: SSU; SS14; A The signing [...] (R 11) ??njo 02/10/2016 9:56 AM EDT [facility] PAROTID GLAND STRUCTURE / Unknown 02/05/2016 10:19 AM EDT 02/05/2016 10:19 AM EDT BIOPSY SPECIMEN / Unknown 02/05/2016 10:19 AM EDT 02/05/2016 10:19 AM EDT PAROTID GLAND STRUCTURE / Unknown 02/05/2016 10:19 AM EDT 02/05/2016 10:19 AM EDT Miguel Angel Moreno MD PATHOLOGY/CYTOLOGY ORDERABLES Performing Organization Address [facility] Co de Phone Number [facility] [place] [address] * Potassium (02/05/2016 6:29 AM EDT) Potassium 4.8 3.5 - 5.0 mmol/L [facility] [...] Longoria MD CHEMISTRY ORDERABLES Performing Organization Address [facility] Co de Phone Number [facility] [place] [address] * Prothrombin Time (02/05/2016 6:29 AM EDT) Prothrombin Time 14.9 12.0 - 15.0 sec [facility] International Normalization Ratio 1.1 0.9 - 1.1 [facility] Blood specimen (specimen) 02/05/2016 6:29 AM EDT 02/05/2016 6:38 AM EDT Narrative Resulting Agency Comment Spec In Lab Miguel Angel Moreno MD HEMATOLOGY ORDERAB LES [facility] [place] [address] documented in this encounter Visit Diagnoses Diagnosis [...] per 24 hours. Begin oral analgesics when WOOD MILLING MACHINE OPERATOR is discontinued., Routine Given 02/06/2016 6:59 AM [...] per 24 hours. Begin oral analgesics when WOOD MILLING MACHINE OPERATOR is discontinued., Routine 1546 (Given - Provider: [...] first. documented in this encounter Care Teams Recordist Relationship Specialty Start Date End Date Sebastian Fuentes DO [address] [place] [address] PCP - General 09/23/11 10/20/22 documented as of this encounter
--- OUTSIDE RECORDS SUMMARY | 2024-05-23 13:36 | XMS_ITS | Encounter Summary ---
[facility] Organization [facility] [place] [address] Care Team Providers Care Manhole Stripper Name Role Phone AlfredoCarroll geiger Primary Care Provider [phone] Encounter Details Date Type Department Care Team (Latest Contact Info) Description 12/03/2015 10:30 AM EDT Laboratory Appointment Lab 3L [place] [phone] Kidney replaced by transplant; Healthcare maintenance; Need [...] 11:06 AM EDT) Neutrophil % 77.8 % [facility] Neutrophil Absolute 3.40 1.50 - 6.30 x10(3)/ L [facility] Lymph % 12.8 % [facility] Lymphocytes Abs 0.6(L) 1.0 - 3.6 x10(3)/ L [facility] Monocyte % 7.8 % [facility] Monocyte Abs 0.3 0.2 - 1.0 x10(3)/[facility] Eos % 1.4 % [facility] Eosinophils Abs 0.1 0.0 - 0.5 x10(3)/[facility] Basophil % 0.2 % [facility] Baso Absolute 0.0 0.0 - 0.2 x10(3)/[facility] Immature Gran % 0.00 % [...] HEMATOLOGY ORDERA BLES [facility] [place] [address] * (ABNORMAL) Hemogram (12/03/2015 11:06 AM EDT) [...] MD HEMATOLOGY ORDERA BLES Performing Organization Address City/State/[facility] Co de Phone Number [facility] [place] [address] * (ABNORMAL) Hemoglobin A1c (12/03/2015 11:06 AM [...] resources are available on the ADA website: http://ideelil.com/DHMCadacalc Rakesh GREWAL, Ashish J, Lizzette R, et al. ??Translating the A1C assay into estimated average glucose values. ??Diabetes Care 2008:31(8):8645-6001. Blood specimen (specimen) 12/03/2015 11:06 AM EDT 12/03/2015 11:16 AM EDT Narrative Resulting Agency Comment Spec In Lab Anup Hawkins MD CHEMISTRY ORDERAB LES [facility] [place] [address] * Lavender Tube HOLD (12/03/2015 11:06 AM EDT) Lavender Hold Sample in lab. [facility] Blood specimen (specimen) 12/03/2015 11:06 AM EDT 12/03/2015 11:16 AM EDT Anup Hawkins MD HEMATOLOGY ORDERA BLES Performing Organization Address [facility]/ZIP Co de Phone Number [facility] [place] [address] * Gold Tube HOLD (12/03/2015 11:06 AM EDT) Gold Hold Sample in lab. [facility] Blood specimen (specimen) 12/03/2015 11:06 AM EDT 12/03/2015 11:16 AM EDT Anup Hawkins MD CHEMISTRY ORDERAB LES Performing Organization Address [facility] Co de Phone Number [facility] [place] [address] * (ABNORMAL) VIT D Total Evaluation (12/03/2015 [...] be considered to be insufficient or deficient. [email or web address] http://Izzy Money/DHMCVitD The IDS iSYS Vitamin D Immunoassay detects both 25-OH Vitamin D2 and 25-OH Vitamin D3, but only a total Vitamin D concentration is reported. Blood specimen (specimen) 12/03/2015 11:06 AM EDT 12/03/2015 11:16 AM EDT Narrative Resulting Agency Comment Spec In Lab Anup Hawkins MD CHEMISTRY ORDERAB LES Performing Organization Address [facility]/ZIP Co de Phone Number [facility] [place] [address] * 1,25-dihydroxycholecalciferol (12/03/2015 11:06 AM EDT) Vit D 1,25 Dihydroxy (NOVEMBER) 54 18 - 64 pg/mL [facility] Comment: Test Performed by: [address] [address] Refuse Collector: Swapnil Torres II, M.D., Ph.D. Blood specimen (specimen) 12/03/2015 11:06 AM EDT 12/03/2015 2:15 PM EDT Narrative Resulting Agency Comment Spec In Lab Anup Hawkins MD LAB SEND OUT ORDE RABLES [facility] [place] [address] * PTH (12/03/2015 11:06 AM EDT) Parathyroid Hormone 57 15 - 65 pg/mL [facility] Blood specimen (specimen) 12/03/2015 11:06 AM EDT 12/03/2015 11:16 AM EDT Narrative Resulting Agency Comment Spec In Lab Anup Hawkins MD CHEMISTRY ORDERAB LES Performing Organization Address City/[facility]/ZIP Co de Phone Number [facility] [place] [address] * Tacrolimus level (12/03/2015 11:06 AM EDT) Tacrolimus 3.0 ng/mL [facility] Comment:Trough therapeutic: 5-15 ng/mL Blood specimen (specimen) 12/03/2015 11:06 AM EDT 12/03/2015 1:51 PM EDT Narrative Resulting Agency Comment Spec In Lab Anup Hawkins MD CHEMISTRY ORDERAB LES Performing Organization Address City/[facility]/ZIP Co de Phone Number [facility] [place] [address] * Uric acid (12/03/2015 11:06 AM EDT) Uric Acid 4.8 3.5 - 8.5 mg/dL [facility] Blood specimen (specimen) 12/03/2015 11:06 AM EDT 12/03/2015 11:16 AM EDT Narrative Resulting Agency Comment Spec In Lab Anup Hawkins MD CHEMISTRY ORDERAB LES Performing Organization Address City/[facility]/ZIP Co de Phone Number [facility] [place] [address] * Phosphorus (12/03/2015 11:06 AM EDT) Pathologist [facility] Phosphorus 3.3 2.5 - 4.5 mg/dL [facility] Blood specimen (specimen) 12/03/2015 11:06 AM EDT 12/03/2015 11:16 AM EDT Narrative Resulting Agency Comment Spec In Lab Anup Hawkins MD CHEMISTRY ORDERAB LES Performing Organization Address [facility]/ZIP Co de Phone Number [facility] [place] [address] * (ABNORMAL) Magnesium (12/03/2015 11:06 AM EDT) [facility] Magnesium 0.66(L) 0.69 - 1.07 mmol/L [facility] Blood specimen (specimen) 12/03/2015 11:06 AM EDT 12/03/2015 11:16 AM EDT Narrative Resulting Agency Comment Spec In Lab Anup Hawkins MD CHEMISTRY ORDERAB LES Performing Organization Address City/[facility]/ZIP Co de Phone Number [facility] [place] [address] * (ABNORMAL) Lipid panel (fasting) (12/03/2015 11:06 AM EDT) Cholesterol, Total 80 <=199 mg/dL [facility] Comment: Recommendations of the NCEP Adult Treatment Panel for the following risk cutoff thresholds for the [place] population: Desirable: <200 mg/dL Borderline High: 200-239 mg/dL High: > or = 240 mg/dL Triglyceride 51 <=149 mg/dL [facility] Comment: Reference Range: Normal triglycerides: ??<150 mg/dL Borderline high: ??150-199 mg/dL High: ??200-499 mg/dL Very high: ??>we=812 mg/dL RAYMOND 2001; 285(19):4756-7392 HDL Cholesterol 25(L) >=40 mg/dL [facility] Comment: Reference range: ??Low HDL: ?? < 40 mg/dL ??Normal: ?40-60 mg/dL ??Desirable: > 60 mg/dL RAYMOND 2001; 285(19):6824-4510 LDL Cholesterol 45 <=99 mg/dL [facility] Comment: Reference range: ?? Optimal: ?<100 mg/dL ?? Near Optimal/Above Optimal: ?? 100-129 mg/dL ?? Borderline high: ?130-159 mg/dL ?? High: ? 160-189 mg/dL ?? Very high: ?>af=573 mg/dL RAYMOND 2001: 285(19):2554-0964 Cholesterol/HDL Ratio 3.2 ratio [facility] Comment: A Cholesterol to HDL ratio below 4:1 is desirable. ??Studies suggest that increased CAD risk occurs at ratios above 5 for females and above 6 for men. ? [place] Heart Association ??(http://www.americanheart.org) ? Marizol Int Med, 1994; 121:641 ? AM J Med, 1998; 105(1A):48S Blood specimen (specimen) 12/03/2015 11:06 AM EDT 12/03/2015 11:16 AM EDT Narrative Resulting Agency Comment Spec In Lab Anup Hawkins MD CHEMISTRY ORDERAB LES Performing Organization Address [facility] Co de Phone Number [facility] [place] [address] * (ABNORMAL) Reticulocyte Count (12/03/2015 11:06 AM [...] MD HEMATOLOGY ORDERA BLES Performing Organization Address [facility] Co de Phone Number [facility] [place] [address] * (ABNORMAL) CMP w/fasting Glucose (12/03/2015 11:06 [...] of Diabetes Mellitus, Position Statement from the [place] Diabetes Association. ??Diabetes Care, Volume 33, Supplement 1, Jul 2009 Blood Urea Nitrogen 42(H) 10 - 20 mg/dL [facility] Creatinine 2.25(H) 0.80 - 1.50 mg/dL [facility] Comment: Please note that the pediatric reference intervals supplied above were not validated at [facility]. Results from pediatric patients [...] the following links into your internet browser. http://Izzy Money/DHnkdep [email or web address]://Izzy Money/DHMCnkf Blood specimen (specimen) 12/03/2015 11:06 AM EDT 12/03/2015 11:16 AM EDT Narrative Resulting Agency Comment Spec In Lab Anup Hawkins MD CHEMISTRY ORDERAB LES [facility] [place] [address] documented in this encounter Visit Diagnoses Diagnosis Kidney replaced by transplant Healthcare maintenance Routine general medical examination at a health care facility Need for prophylactic immunotherapy documented in this encounter Care Teams Manhole Stripper Relationship Specialty Start Date End Date Carroll Fuentes DO [address] [place] [address] [address] [place] [address] PCP - General 09/23/11 10/20/22 documented as of this encounter
--- OUTSIDE RECORDS SUMMARY | 2024-05-23 13:36 | XMS_ITS | Encounter Summary ---
Author Organization [facility] Address [facility] [place] [address] Care Team Providers Care Package Handler Name Role Phone AlfredoCarroll allison Primary Care Provider [phone] Encounter Details Date Type Department Care Team (Latest Contact Info) Description 11/08/2015 12:30 PM EDT - 11/08/2015 11:59 PM EDT Hospital En[place] [phone] Matheus Copeland [place] A-V fistula Discharge Disposition: [...] Text Report Department: Vascular Surgery Lab Patient: [id number] (ARNOL, CHRISTY) CPT: 27628 ICD10: I77.0 Referring Physician: STEPHANIE IRELAND ?? [...] (11/08/2015 10:19 AM EDT) Tacrolimus 8.2 ng/mL [facility] Comment:Trough therapeutic: 5-15 ng/mL Blood specimen (specimen) Venous Draw / Unknown 11/08/2015 10:19 AM EDT 11/11/2015 7:57 AM EDT Narrative Resulting Agency Comment Spec In Lab Anup Hawkins MD CHEMISTRY ORDERAB LES [facility] [place] [address] documented in this encounter Visit Diagnoses Diagnosis A-V fistula Arteriovenous fistula, acquired documented in this encounter Care Teams Package Handler Relationship Specialty Start Date End Date Carroll Fuentes DO [address] [place] [address] PCP - General 09/23/11 10/20/22 documented as of this encounter
--- OUTSIDE RECORDS SUMMARY | 2024-05-23 13:36 | XMS_ITS | Encounter Summary ---
[place] [address] Care Team Providers Care Dredge Deckhand Name Role Phone Carroll Fuentes DO Primary Care Provider [phone] Reason for Visit * Reason Onset Date Comments Medication Refill 01/24/2016 Encounter Details Date Type Department Care Team (Late st Contact Info) Description 01/24/2016 Refill [place] [phone] Autumn Burgos, RN S/P kidney transplant Social [...] transplant documented in this encounter Care Teams Dredge Deckhand Relationship Specialty Start Date End Date Carroll Fuentes DO [address] [place] [address] PCP - General 09/23/11 10/20/22 documented as of this encounter
--- OUTSIDE RECORDS SUMMARY | 2024-05-23 13:36 | XMS_ITS | Encounter Summary ---
Author Organization [facility] Address [facility] [place] [address] Care Team Providers Care Panel Saw Operator Name Role Phone AlfredoCarroll allison Primary Care Provider [phone] Reason for Visit * Auth/Cert Specialty Diagnoses / Procedures Referred By Shashi ko Referred To Contact Diagnoses ESRD Procedures PRO VASCULAR SURGERY PROCEDURE UNLIST LIGATION\REPAIR AV FISTULA Referral ID Status Reason Start Date Expiration Date Visits Re quested Visits Authorized [id number] 1 1 Encounter Details Date Type Department Care Team (Late st Contact Info) Description 11/20/2015 5:58 AM EDT - 11/20/2015 11:00 AM EDT Hospital Encounter [place] [address] Stephanie Ireland MD [facility] [address] [place] [address] Anticoagulated Discharge Disposition: Home Social History Tobacco [...] may be used if needed and are vqzh-fiw-xdgwaae (OTC) medications available at most local pharmacies. Prunes or prune juice, taken daily, can also be helpful for constipation treatment or prevention and are available at most [facility] [employer]. Driving Restrictions*: - No driving if you [...] with the Transplant Surgery Outpatient Clinic - [address] in 2-4 weeks. You will recieve a letter in the mail and/or a phone call with information about this appointment. Please call [phone] (clinic number for appointments) to confirm date and time of your appointment, or if you do not receive information about your appointment in a timely manner. Future Appointments Date Time Provider Department Center 11/21/2015 4:00 PM Alfonzo Miles MD [facility] Neuro [facility] 12/03/2015 4:30 PM Stephanie Ireland MD Leb Trans 2M [facility] 03/03/2016 10:45 AM Bashir Benitez MD [facility] documented in this encounter Medications at [...] Ireland MD - 11/20/2015 9:22 AM EDT [facility] Operative Note Patient Name: Adama Ram : [id number] MR#: [id number] Case Date: 11/20/2015 Surgeon: Surgeon(s) and Role: [...] Prothrombin Time 22.4(H) 12.0 - 15.0 sec [facility] Comment: An INR <2.0 [...] International Normalization Ratio 1.9(H) 0.9 - 1.1 [facility] Blood specimen (specimen) 11/20/2015 6:07 AM EDT 11/20/2015 6:18 AM EDT Narrative Resulting Agency Comment Spec In Lab Stephanie Ireland MD HEMATOLOGY ORD ERABLES [facility] [place] [address] documented in this encounter Visit Diagnoses Diagnosis [...] 5% 50 mL (COMPLETED) 2 g, Intravenous, EMAIL CAMPAIGN SPECIALIST TO O.R., 1 dose, On Wed11/20/15 at [...] Routine documented in this encounter Care Teams Panel Saw Operator Relationship Specialty Start Date End Date Carroll Fuentes DO [address] [place] [address] [address] [place] [address] PCP - General 09/23/11 10/20/22 documented as of this encounter
--- OUTSIDE RECORDS SUMMARY | 2024-05-23 13:36 | XMS_ITS | Encounter Summary ---
Author Organization [facility] Address [facility] [place] [address] Care Team Providers Care Senior Painter Name Role Phone AlfredoCarroll allison Primary Care Provider Encounter Details Date Type Department Care Team (Latest Contact Info) Description 02/10/2016 9:12 PM EDT - 02/10/2016 11:59 PM EDT [place] [address] Discharge Disposition: Home Social History Tobacco Use [...] (02/10/2016 10:20 AM EDT) Tacrolimus 6.9 ng/mL [facility] Comment: Trough therapeutic: ??5-15 ng/mL Performed by ultra-performance liquid chromatography tandem mass spectrometry (UPLCMS/MS). Blood specimen (specimen) Venous Draw / Unknown 02/10/2016 10:20 AM EDT 02/11/2016 8:04 AM EDT Narrative Resulting Agency Comment Spec In Lab Anup Hawkins MD CHEMISTRY ORDERAB LES [facility] [place] [address] documented in this encounter Visit Diagnoses Not on filedocumented in this encounter Care Teams Senior Painter Relationship Specialty Start Date End Date Carroll Fuentes DO [address] [place] [address] PCP - General 09/23/11 10/20/22 documented as of this encounter
--- OUTSIDE RECORDS SUMMARY | 2024-05-23 13:36 | XMS_ITS | Encounter Summary ---
Author Organization [facility] Address [facility] [place] [address] Care Team Providers Care Lamp Shade Assembler Name Role Phone Carroll Fuentes DO Primary Care Provider [phone] Reason for Visit * Reason Comments Medication Refill Encounter Details Date Type Department Care Team (Late st Contact Info) Description 01/31/2016 Refill [place] [address] Anup Hawkins MD [facility] [place] [address] Social History Tobacco Use Types Packs/Day Years [...] on filedocumented in this encounter Care Teams Lamp Shade Assembler Relationship Specialty Start Date End Date Carroll Fuentes DO [address] [place] [address] PCP - General 3/14/12 4/11/23 documented as of this encounter
--- OUTSIDE RECORDS SUMMARY | 2024-05-23 13:36 | XMS_ITS | Encounter Summary ---
Author Organization [facility] Address [facility] [place] [address] Care Team Providers Care Geophysics Professor Name Role Phone AlfredoCarroll allison Primary Care Provider [phone] Reason for Visit * Auth/Cert Specialty Diagnoses / Procedures Referred By Shashi ko Referred To Contact Diagnoses ESRD Procedures PRO VASCULAR SURGERY PROCEDURE UNLIST LIGATION\REPAIR AV FISTULA Referral ID Status Reason Start Date Expiration Date Visits Re quested Visits Authorized [id number] 1 1 Encounter Details Date Type Department Care Team (Late st Contact Info) Description 11/20/2015 7:30 AM EDT - 11/20/2015 9:21 AM EDT Surgery [place] [address] Stephanie Ireland MD [facility] [place] [address] LIGATION\REPAIR AV FISTULA (WRVU 13.24) Social History [...] may be used if needed and are jjli-qqu-ghbxrhk (OTC) medications available at most local pharmacies. [...] with the Transplant [facility] - [address] in 2-4 weeks. You will recieve a letter in the mail and/or a phone call with information about this appointment. Please call [phone] (clinic number for appointments) to confirm date and time of your appointment, or if you do not receive information about your appointment in a timely manner. Future Appointments Date Time Provider Department Center 11/21/2015 4:00 PM Alfonzo Miles MD [facility] 12/03/2015 4:30 PM Stephanie Ireland MD [facility] Trans [facility] 03/03/2016 10:45 AM Bashir Benitez MD [facility] [place] [place] documented in this encounter Medications at Time [...] Ireland MD - 11/20/2015 9:22 AM EDT [facility] Operative Note Patient Name: Adama Ram : [id number] MR#: [id number] Case Date: 11/20/2015 Surgeon: Surgeon(s) and Role: [...] Prothrombin Time 22.4(H) 12.0 - 15.[address] [facility] Comment: An [...] International Normalization Ratio 1.9(H) 0.9 - 1.1 [facility] Blood specimen (specimen) 11/20/2015 6:07 AM EDT 11/20/2015 6:18 AM EDT Narrative Resulting Agency Comment Spec In Lab Stephanie Ireland MD HEMATOLOGY ORD ERABLES [facility] [place] [address] documented in this encounter Visit Diagnoses Not [...] 5% 50 mL (COMPLETED) 2 g, Intravenous, SHORE MAN TO O.R., 1 dose, On Wed11/20/15 at [...] Routine documented in this encounter Care Teams Geophysics Professor Relationship Specialty Start Date End Date Carroll Fuentes DO [address] [place] [address] PCP - General 09/23/11 10/20/22 documented as of this encounter
--- OUTSIDE RECORDS SUMMARY | 2024-05-23 13:36 | XMS_ITS | Encounter Summary ---
Author Organization [facility] Address [facility] Laura [facility] [place] [address] Care Team Providers Care Perlite Grinder Name Role Phone Carroll Fuentes DO Primary Care Provider [phone] Reason for Visit * Reason Comments Mass LT side neck mass, x 20months, swelling Encounter Details Date Type Department Care Team (Late st Contact Info) Description 12/03/2015 12:40 PM EDT Office [place] [address] [facility] [place] [address] Skin lesion; Lesion of throat Social History [...] as of this encounter Progress Notes * Miguel Angel Moreno MD - 12/06/2015 12:25 PM [...] Report (12/03/2015 1:32 PM EDT) Final Diagnosis [id number] ?Location: The signing pathologist has (i) examined [...] submitted. (T2) ??ejr 12/06/2015 3:00 PM EDT [facility] SPECIMEN FROM SKIN / Unknown 12/03/2015 1:32 PM EDT 12/03/2015 1:32 PM EDT Miguel Angel Moreno MD PATHOLOGY/CYTOLOGY ORDERABLES [facility] [place] [address] documented in this encounter Visit Diagnoses Diagnosis Skin lesion Unspecified disorder of skin and subcutaneous tissue Lesion of throat Unspecified disease of pharynx documented in this encounter Care Teams Perlite Grinder Relationship Specialty Start Date End Date Carroll Fuentes DO [address] [place] [address] PCP - General 09/23/11 10/20/22 documented as of this encounter
--- OUTSIDE RECORDS SUMMARY | 2024-05-23 13:36 | XMS_ITS | Encounter Summary ---
Author Organization [facility] Address [facility] [place] [address] Care Team Providers Care Blow Molder Name Role Phone AlfredoCarroll allison Primary Care Provider [phone] Encounter Details Date Type Department Care Team (Late st Contact Info) Description 11/21/2015 4:00 PM EDT Office [place] [address] Alfonzo Miles MD [facility] [place] [address] Partial symptomatic epilepsy with complex partial seizures, [...] arise. Alfonzo Miles MD Department of Neurology [address] [address], [place] [address] Pager: [phone], #[phone] Email: [email or web address] documented in this encounter Progress Notes * [...] necessary. Alfonzo Miles [place] [address] Pager: [phone], #[phone] Email: [email or web address] cc: CHASE FUENTES DO Dr. Beka Moreno [...] 20 mg/dL [facility] Creatinine 3.04(H) 0.80 - 1.50 mg/dL [facility] Comment: Please note that the pediatric reference intervals supplied above were not validated at [facility]. Results from pediatric patients should be interpreted in conjunction to the patient's age, height and muscle mass. Sodium 140 135 - 145 mmol/L [facility] [...] [facility]ATORY Est Glomerular Filtration Rate 22(L) >=60 [facility] Comment: This estimated GFR (eGFR) [...] the following links into your internet browser. [email or web address] Blood specimen (specimen) Venous Draw / Unknown 11/21/2015 5:13 PM EDT 11/21/2015 5:21 PM EDT Narrative Resulting Agency Comment Spec In Lab Alfonzo Miles MD CHEMISTRY ORDERABLES [facility] [place] [address] * (ABNORMAL) Differential, Automated (11/21/2015 5:13 PM EDT) Neutrophil % 80.4 % [facility] Neutrophil Absolute 5.88 1.50 - 6.30 x10(3)/mc L [facility] Lymph % 10.6 % [facility] Lymphocytes Abs 0.8(L) 1.0 - 3.6 x10(3)/ L [facility] Monocyte % 8.0 % [facility] Monocyte Abs 0.6 0.2 - 1.0 x10(3)/mc L [facility] Eos % 0.8 % [facility] Eosinophils Abs 0.1 0.0 - 0.5 x10(3)/mc L [facility] Basophil % 0.1 % [facility] Baso Absolute 0.0 0.0 - 0.2 x10(3)/mc L [facility] Immature Gran % 0.10 % [facility] Comment: Immature granulocytes(IG's)percentage and absolute count will include metamyelocytes, myelocytes, and promyelocytes. Blood smears from CBCs yielding IG's will be scanned manually for concordance. If this scan disagrees with the automated IG or if promyelocytes are noted, a manual differential will be performed. Immature Gran Absolute 0.01 0.00 - 0.05 x10(3)/mc L [facility] Blood specimen (specimen) 11/21/2015 5:13 PM EDT 11/21/2015 5:21 PM EDT Narrative Resulting Agency Comment Spec In Lab Alfonzo Miles MD HEMATOLOGY ORDERABLE S [facility] [place] [address] * (ABNORMAL) Hemogram (11/21/2015 5:13 PM EDT) White Blood Cell 7.3 4.0 - 10.0 x10(3)/mc L [facility] Red Blood Cell 3.05(L) 4.63 - 6.08 x10(6)/mc L [facility] Hemoglobin 8.9(L) 13.7 - 17.5 gm/dL [facility] Hematocrit 26.9(L) 40.0 - 51.0 % [facility] Mean Cell Volume 88.2 79.0 - 92.0 fL [facility] Mean Cell Hemoglobin 29.2 25.6 - 32.2 pg [facility] Mean Cell Hemoglobin Concentration 33.1 32.0 - 36.5 gm/dL [facility] Platelet 184 145 - 370 x10(3)/mc L [facility] RDW Standard Deviation 47.8(H) 35.0 - 46.0 fL [facility] RDW coefficient of variation 14.9(H) 10.9 - 14.4 % [facility] Mean Platelet Volume 10.1 9.0 - 12.0 fL [facility] Blood specimen (specimen) 11/21/2015 5:13 PM EDT 11/21/2015 5:21 PM EDT Narrative Resulting Agency Comment Spec In Lab Alfonzo Miles MD HEMATOLOGY ORDERABLE S [facility] [place] [address] * Levetiracetam level (11/21/2015 5:13 PM EDT) Pathologist [facility] Levetiracetam Lvl (NOVEMBER) 33.6 12.0 - 46.0 mcg/mL [facility] Comment: Test Performed by: [place] [address] Program Director/Air Personality: Christal Rodriguez, Ph.D. Blood specimen (specimen) 11/21/2015 5:13 PM EDT 11/22/2015 8:25 AM EDT Narrative Resulting Agency Comment Spec In Lab Alfonzo Miles MD LAB SEND OUT ORDERAB LES Performing Organization Address City/[facility]/ZIP Co de Phone Number [facility] [place] [address] * Hepatic Function Panel (11/21/2015 5:13 PM EDT) [facility] Protein, Total 6.2 6.1 - 8.0 gm/dL [facility] Albumin 4.0 3.2 - 5.2 gm/dL [facility] Aspartate Aminotransferase 20 0 - 39 unit/L [facility] Alanine Aminotransferase 11 0 - 55 unit/L [facility] Alkaline Phosphatase 89 40 - 120 unit/L [facility] Bilirubin, Total 0.4 0.2 - 1.3 mg/dL [facility] Bilirubin, Direct 0.1 0.0 - 0.3 mg/dL [facility] Blood specimen (specimen) 11/21/2015 5:13 PM EDT 11/21/2015 5:21 PM EDT Narrative Resulting Agency Comment Spec In Lab Alfonzo Miles MD CHEMISTRY ORDERABLES Performing Organization Address [facility] Co de Phone Number [facility] [place] [address] documented in this encounter Visit Diagnoses Diagnosis Partial symptomatic epilepsy with complex partial seizures, not intractable, without status epilepticus documented in this encounter Care Teams Blow Molder Relationship Specialty Start Date End Date Carroll Fuentes DO [address] [place] [address] [address] [place] [address] PCP - General 09/23/11 10/20/22 documented as of this encounter
--- OUTSIDE RECORDS SUMMARY | 2024-05-23 13:36 | XMS_ITS | Encounter Summary ---
Author Organization [facility] Address [facility] [place] [address] Care Team Providers Care Asphalt Tamping Machine Operator Name Role Phone AlfredoCarroll allison Primary Care Provider Encounter Details Date Type Department Care Team (Late st Contact Info) Description 01/28/2016 Telephone [place] [address] Cally Dillon LPN Social History Tobacco Use [...] for surgery. He has his injections at [facility]. He called today to inquire abot the need to bridge for this surgery. Patient can be reached at [phone]. Message will be sent to Dr. Moreno and Felipa Anna RN for follow up. documented in this encounter Plan of Treatment Not on file documented as of this encounter Visit Diagnoses Not on filedocumented in this encounter Care Teams Asphalt Tamping Machine Operator Relationship Specialty Start Date End Date Carroll Fuentes DO [address] [place] [address] [address] [place] [address] PCP - General 09/23/11 10/20/22 documented as of this encounter
--- OUTSIDE RECORDS SUMMARY | 2024-05-23 13:36 | XMS_ITS | Encounter Summary ---
[place] [address] Care Team Providers Care Dental Assisting Instructor Name Role Phone Carroll Fuentes DO Primary Care Provider [phone] Reason for Visit * Reason Onset Date Comments Medication Refill 02/03/2016 Encounter Details Date Type Department Care Team (Late st Contact Info) Description 02/03/2016 Refill [place] [address] Tosha Castro, RN S/P kidney transplant Social [...] transplant documented in this encounter Care Teams Dental Assisting Instructor Relationship Specialty Start Date End Date Carroll Fuentes DO [address] [place] [address] PCP - General 09/23/11 10/20/22 documented as of this encounter
--- OUTSIDE RECORDS SUMMARY | 2024-05-23 13:36 | XMS_ITS | Encounter Summary ---
Author Organization [facility] [place] [address] Care Team Providers Care Director Of Pediatric Rehabilitation Name Role Phone Carroll Fuentes DO Primary Care Provider Reason for Visit * Reason Comments Medication Refill Encounter Details Date Type Department Care Team (Late st Contact Info) Description 12/24/2015 Refill [place] [address] Anup Hawkins MD [facility] [place] [address] High level of uric acid in blood [...] chemistry documented in this encounter Care Teams Director Of Pediatric Rehabilitation Relationship Specialty Start Date End Date Carroll Fuentes DO [address] [place], [place] [address] PCP - General 09/23/11 10/20/22 documented as of this encounter
--- OUTSIDE RECORDS SUMMARY | 2024-05-23 13:36 | XMS_ITS | Encounter Summary ---
Author Organization [facility] Address [facility] [place] [address] Care Team Providers Care Park Landscape Architect Name Role Phone AlfredoCarroll allison Primary Care Provider [phone] Reason for Referral * Diagnostic Test (Routine) - Closed Specialty Diagnoses / Procedures Referred By Shashi ko Referred To Contact Radiology Diagnoses Neck mass Procedures CT Neck Wo Contrast Miguel Angel Moreno MD [facility] [place] [address] [facility] [place] [address] Referral ID Status Reason Start Date Expiration Date V isits Requested Visits Authorized [id number] Closed Specialty Service Requested 11/22/2015 02/20/2016 1 1 Encounter Details Date Type Department Care Team (Late st Contact Info) Description 11/22/2015 Orders [place] [address] Miguel Angel Moreno MD [facility] [place] [place] [address] Neck mass Social History Tobacco [...] neck documented in this encounter Care Teams Park Landscape Architect Relationship Specialty Start Date End Date Carroll Fuentes DO [address] [place] [address] PCP - General 09/23/11 10/20/22 documented as of this encounter
--- OUTSIDE RECORDS SUMMARY | 2024-05-23 13:36 | XMS_ITS | Encounter Summary ---
Author Organization [facility] Address [facility] [place] [address] Care Team Providers Care Digital Forensic Analyst Name Role Phone Carroll Fuentes DO Primary Care Provider [phone] Reason for Visit * Reason Comments Medication Refill Encounter Details Date Type Department Care Team (Late st Contact Info) Description 12/05/2015 Refill [place] [address] Anup Hawkins MD [facility] [place] [address] Social History Tobacco Use Types Packs/Day Years [...] on filedocumented in this encounter Care Teams Digital Forensic Analyst Relationship Specialty Start Date End Date Carroll Fuentes DO [address] [place] [address] PCP - General 3/14/12 4/11/23 documented as of this encounter
--- OUTSIDE RECORDS SUMMARY | 2024-05-23 13:36 | XMS_ITS | Encounter Summary ---
Author Organization [facility] [place] [address] Care Team Providers Care Platform Architect Name Role Phone Alfredo Carroll MIX Primary Care Provider [phone] Encounter Details Date Type Department Care Team (Late st Contact Info) Description 01/30/2016 Telephone [place] [address] Angelica Anna RN Social History Tobacco Use [...] on filedocumented in this encounter Care Teams Platform Architect Relationship Specialty Start Date End Date Carroll Fuentes DO [address] [place] [address] PCP - General 09/23/11 10/20/22 documented as of this encounter
--- OUTSIDE RECORDS SUMMARY | 2024-05-23 13:36 | XMS_ITS | Encounter Summary ---
Author Organization [facility] [place] [address] Care Team Providers Care Stubber Name Role Phone Carroll Fuentes DO Primary Care Provider [phone] Encounter Details Date Type Department Care Team (Late st Contact Info) Description 12/20/2015 Telephone [place] [address] Antony Yin Social History Tobacco Use Types [...] on filedocumented in this encounter Care Teams Stubber Relationship Specialty Start Date End Date Carroll Fuentes DO [address] [place] [address] [address] [facility] [place] [address] PCP - General 09/23/11 10/20/22 documented as of this encounter
--- OUTSIDE RECORDS SUMMARY | 2024-05-23 13:36 | XMS_ITS | Encounter Summary ---
Author Organization [facility] [place] [address] Care Team Providers Care Naval Science Teacher Name Role Phone Carroll Fuentes DO Primary Care Provider [phone] Encounter Details Date Type Department Care Team (Late st Contact Info) Description 12/18/2015 Orders [place] [address] Miguel Angel Moreno MD [facility] [place] [address] Skin cancer Social History Tobacco Use Types [...] unspecified documented in this encounter Care Teams Naval Science Teacher Relationship Specialty Start Date End Date Carroll Fuentes DO [address] [place] [address] PCP - General 09/23/11 10/20/22 documented as of this encounter
--- OUTSIDE RECORDS SUMMARY | 2024-05-23 13:36 | XMS_ITS | Encounter Summary ---
Author Organization [facility] Address [facility] [place] [address] Care Team Providers Care Wire Stripping Machine Operator Name Role Phone AlfredoCarroll allison Primary Care Provider [phone] Reason for Visit * Auth/Cert Specialty Diagnoses / Procedures Referred By Shashi ko Referred To Contact Diagnoses ESRD Procedures PRO VASCULAR SURGERY PROCEDURE UNLIST LIGATION\REPAIR AV FISTULA Referral ID Status Reason Start Date Expiration Date Visits Re quested Visits Authorized [id number] 1 1 Encounter Details Date Type Department Care Team (Late st Contact Info) Description 11/20/2015 7:25 AM EDT Anesthesia Event Main [place] [address] Vivienne Naylor MD [facility] [place] [address] Cally Olson, LICENSED MENTAL HEALTH PROFESSIONAL [address] [facility] 3B-1 [place] [address] Anesthesia Record Procedure Summary Procedure Name Responsible [...] cephalic vein right (lateral side of arm); wpjm-quj-[id number] catheter system; 18 gauge; distraction, intradermal injection, [...] Nelson Thornton - 11/20/2015 1:30 PM EDT [facility] Department of Anesthesiology Post-procedure Note Patient: Adama Ram Procedure Summary Date Anesthesia Start Anesthesia Stop Room / Location 11/20/15 0725 0942 [facility] Procedure Diagnosis Surgeon Responsible Provider LIGATION\REPAIR AV FISTULA (Left Arm); EXCISION VEIN FROM HAND (Left Arm) (ESRD) Camilo Ireland MD Procopio, Marcia A, MD All Anesthesia Providers: Anesthesiologist: Vivienne Naylor MD Manager Lpn: Nelson Thornton MD Last (1hr) Vitals: BP Temp Pulse Resp SpO2 Patient Location: PACU/[facility] Level of Consciousness: Awake and Alert [...] UPPER EXTREMITY performed by SABRINA SANCHEZ at [facility] ? ? Pro exc skin malig >4cm trunk, arm, leg 04/19/2012 EXC MALIGNANT LESION, MICHAEL > 4.0CM, TRUNK performed by SABRINA SANCHEZ at [facility] History Substance Use Topics ??? [...] dextrose 5% 50 mL 2 g, Intravenous, WAITER/WAITRESS TAKE OUT TO O.R., 1 dose, On Wed11/20/15 at [...] mL/hr documented in this encounter Care Teams Wire Stripping Machine Operator Relationship Specialty Start Date End Date Carroll Fuentes DO [address] [place] [address] PCP - General 09/23/11 10/20/22 documented as of this encounter
--- OUTSIDE RECORDS SUMMARY | 2024-05-23 13:36 | XMS_ITS | Encounter Summary ---
Author Organization [facility] Address [facility] [place] [address] Care Team Providers Care Plant Breeder Name Role Phone AlferdoCarroll allison Primary Care Provider [phone] Reason for Visit * Auth/Cert Specialty Diagnoses / Procedures Referred By Shashi ko Referred To Contact Diagnoses skin cancer Procedures PRO EXC SKIN MALIG 3.1-4CM FACE, FACIAL PRO EXC PAROTD, LAT LOBE, DISSECT 5TH NERV EXC MALIGNANT LESION, 3.1 TO 4.0CM, FACE EXC.PAROTID TUMOR OR GLAND, LATERAL LOBE Referral ID Status Reason Start Date Expiration Date Visits Re quested Visits Authorized [id number] 1 1 Encounter Details Date Type Department Care Team (Late st Contact Info) Description 02/05/2016 7:30 AM EDT Anesthesia Event [place] [address] Paxton Longoria MD [facility] [place] [address] Cally Olson, INFORMATION TECHNOLOGY ACCOUNT MANAGER [address] [facility] [address] [place] [address] Anesthesia Record Procedure Summary Procedure Name Responsible [...] basilic vein right (medial side of arm); wvcl-jyi-itnsgk catheter system; 18 gauge; BSmithRN; intradermal injection; [...] Longoria MD - 02/05/2016 4:58 PM EDT [facility] Department of Anesthesiology Post-procedure Note Patient: Adama Ram Procedure Summary Date Anesthesia Start Anesthesia Stop Room / Location 02/05/16 0730 1141 [facility] Procedure Diagnosis Surgeon Responsible Provider EXC MALIGNANT LESION, 3.1 TO 4.0CM, FACE (Left Face); @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, TOTAL, WITH UNILATERAL RADICAL NECK DISSECTION (Left Neck) Skin cancer (skin cancer) Miguel Angel Moreno MD Bertrand, Marc L, MD All Anesthesia Providers: Anesthesiologist: Paxton Longoria MD Clinical Product Manager: Ronnell Sheriff MD Last (1hr) Vitals: BP Temp Pulse Resp SpO2 Patient Location: PACU/[facility] Level of Consciousness: Conscious but Sleepy [...] UPPER EXTREMITY performed by SABRINA SANCHEZ at [facility] ? ? Pro exc skin malig >4cm trunk, arm, leg 04/19/2012 EXC MALIGNANT LESION, MICHAEL > 4.0CM, TRUNK performed by SABRINA SANCHEZ at [facility] ??? Pro vascular surgery procedure unlist Left 11/20/2015 LIGATION\REPAIR AV FISTULA performed by Camilo Ireland MD at [facility] ??? Pro vascular surgery procedure unlist Left 11/20/2015 EXCISION VEIN FROM HAND performed by Camilo Ireland MD at [facility] Social History Substance Use [...] mg documented in this encounter Care Teams Plant Breeder Relationship Specialty Start Date End Date Carroll Fuentes DO [address] [place] [address] PCP - General 09/23/11 10/20/22 documented as of this encounter
--- OUTSIDE RECORDS SUMMARY | 2024-05-23 13:36 | XMS_ITS | Encounter Summary ---
Author Organization [facility] Address [facility] [place] [address] Care Team Providers Care Landcare Officer Name Role Phone AlfredoSebastian geiger Primary Care Provider [phone] Reason for Visit * Auth/Cert Specialty Diagnoses / Procedures Referred By Shashi ko Referred To Contact Diagnoses skin cancer Procedures PRO EXC SKIN MALIG 3.1-4CM FACE, FACIAL PRO EXC PAROTD, LAT LOBE, DISSECT 5TH NERV EXC MALIGNANT LESION, 3.1 TO 4.0CM, FACE EXC.PAROTID TUMOR OR GLAND, LATERAL LOBE Referral ID Status Reason Start Date Expiration Date Visits Re quested Visits Authorized [id number] 1 1 Encounter Details Date Type Department Care Team (Latest Contact Info) Description 02/05/2016 6:14 AM EDT - 02/06/2016 11:33 AM EDT Hospital Encounter [place] [address] Miguel Angel Moreno MD [facility] [place] [address] Anticoagulated on Coumadin; Skin cancer Discharge Disposition: [...] -You can reach the ENT clinic at [phone] for appointment questions. -The ENT triage nurse is available at [phone] -For urgent issues during evenings and weekends the ENT resident pet resort concierge can be reached through [facility] liner machine operator at [phone] Follow Up: You will need to follow up. Please see the appointments below. Currently Scheduled Appointments and VNA instructions: Future Appointments and Orders Future Appointments Provider Department Dept Phone 02/20/2016 1:30 PM Portillo Lujan PA Otolaryngology [phone] 03/03/2016 10:45 AM Bashir Benitez MD Dermatology at [place] [phone] 03/09/2016 1:30 PM Alexander Sage MD Dermatology at [facility] [phone] 05/20/2016 8:[address] [facility] Lab 3L [phone] 05/20/2016 9:30 AM Anup Hawkins MD Transplant [phone] 11/25/2016 10:30 AM LAB, [facility] Lab 3L [phone] 11/25/2016 11:30 AM Anup Hawkins MD Transplant [phone] Future Orders Complete By Expires Full code [...] __ Primary Care Doctor: SEBASTIAN FUENTES DO [phone] Signed: Damián Richter MD 02/06/2016 documented in [...] -You can reach the ENT clinic at [phone] for appointment questions. -The ENT triage nurse is available at [phone] -For urgent issues during evenings and weekends the ENT resident pet resort concierge can be reached through [facility] liner machine operator at [phone] Follow Up: You will need to follow up. Please see the appointments below. Currently Scheduled Appointments and VNA instructions: Future Appointments and Orders Future Appointments Provider Department Dept Phone 02/20/2016 1:30 PM Portillo Lujan PA Otolaryngology [phone] 03/03/2016 10:45 AM Bashir Benitez MD Dermatology at [place] [phone] 03/09/2016 1:30 PM Alexander Sage MD Dermatology at [facility] [phone] 05/20/2016 8:[address] [place] [facility] [address] [facility] Lab 05/20/2016 9:30 AM Anup Hawkins MD Transplant [phone] 11/25/2016 10:[address] [facility] Lab 11/25/2016 11:30 AM Anup Hawkins MD Transplant [phone] Future Orders Complete By Expires Full code [...] Richter MD, PGY1 02/05/16 6:17 PM Pager: [phone] * Cassie Sarmiento RN - 02/05/2016 2:01 [...] Care Goal: Plan of Care Review 02/05/16 8993 Plan of Care Review Plan of Care [...] Moreno MD - 02/05/2016 2:17 PM EDT [facility] Operative Note Patient Name: Adama Ram : [id number] MR#: [id number] Case Date: 02/05/2016 Surgeon: Surgeon(s) and Role: [...] Procedure Name Priority Date/Time Associated Diagnosis Comments ENGLISH INSTRUCTOR SCAN 02/09/2016 12:00 AM EDT ECG SCAN [...] in this encounter Results * SCAN DOC: ENGLISH INSTRUCTOR (02/09/2016 12:00 AM EDT) Anatomical Region Laterality Modality Other Scanning Provider MEDIA MGR SCAN EXT O RDR/RSLT * SCAN DOC: ECG (02/06/2016 12:00 AM EDT) Scanning Provider MEDIA MGR SCAN EXT O RDR/RSLT * Specimen to Pathology (surgical or derm) (02/05/2016 10:44 AM EDT) AP Specimen 02/05/2016 10:4 4 AM EDT 02/05/2016 10:44 AM EDT Narrative [facility] - 02/05/2016 10:44 AM EDT Specimen requisition ordered. ??Separate Pathology report to follow Miguel Angel Moreno MD PATHOLOGY/CYTOLOGY ORDERABLES Performing Organization Address [facility] [place] [address] * Specimen to Pathology (surgical or derm) (02/05/2016 10:26 AM EDT) AP Specimen 02/05/2016 10:2 6 AM EDT 02/05/2016 10:26 AM EDT [facility] - 02/05/2016 10:26 AM EDT Specimen requisition ordered. ??Separate Pathology report to follow Miguel Angel Moreno MD PATHOLOGY/CYTOLOGY ORDERABLES Performing Organization Address [facility] [place] [address] * Specimen to Pathology (surgical or derm) (02/05/2016 10:20 AM EDT) AP Specimen 02/05/2016 10:2 0 AM EDT 02/05/2016 10:20 AM EDT [facility] - 02/05/2016 10:20 AM EDT Specimen requisition ordered. ??Separate Pathology report to follow Miguel Angel Moreno MD PATHOLOGY/CYTOLOGY ORDERABLES Performing Organization Address [facility] [place] [address] * Surgical Pathology Report (02/05/2016 10:19 AM EDT) Final Diagnosis [id number] ? Location: SSU; 14; A The signing [...] (R 11) ??njo 02/10/2016 9:56 AM EDT [facility] PAROTID GLAND STRUCTURE / Unknown 02/05/2016 10:19 AM EDT 02/05/2016 10:19 AM EDT BIOPSY SPECIMEN / Unknown 02/05/2016 10:19 AM EDT 02/05/2016 10:19 AM EDT PAROTID GLAND STRUCTURE / Unknown 02/05/2016 10:19 AM EDT 02/05/2016 10:19 AM EDT Miguel Angel Moreno MD PATHOLOGY/CYTOLOGY ORDERABLES Performing Organization Address [facility] Co de Phone Number [facility] [place] [address] * Potassium (02/05/2016 6:29 AM EDT) Potassium 4.8 3.5 - 5.0 mmol/L [facility] [...] Longoria MD CHEMISTRY ORDERABLES Performing Organization Address [facility] Co de Phone Number [facility] [place] [address] * Prothrombin Time (02/05/2016 6:29 AM EDT) Prothrombin Time 14.9 12.0 - 15.0 sec [facility] Comment: An INR <2.0 [...] International Normalization Ratio 1.1 0.9 - 1.1 [facility] Blood specimen (specimen) 02/05/2016 6:29 AM EDT 02/05/2016 6:38 AM EDT Narrative Resulting Agency Comment Spec In Lab Miguel Angel Moreno MD HEMATOLOGY ORDERAB LES [facility] [place] [address] documented in this encounter Visit Diagnoses Diagnosis [...] per 24 hours. Begin oral analgesics when INSIDE SALES ACCOUNT MANAGER is discontinued., Routine Given 02/06/2016 6:59 AM [...] 1251, Day of Surgery (Day of Procedure) [facility] 02/05/2016 7:18 AM EDT 1,000 [...] per 24 hours. Begin oral analgesics when INSIDE SALES ACCOUNT MANAGER is discontinued., Routine 1546 (Given - Provider: [...] first. documented in this encounter Care Teams Landcare Officer Relationship Specialty Start Date End Date Sebastian Fuentes DO [address] [place] [address] PCP - General 09/23/11 10/20/22 documented as of this encounter
--- OUTSIDE RECORDS SUMMARY | 2024-05-23 13:36 | XMS_ITS | Encounter Summary ---
Author Organization [facility] Address [place] [address] Care Team Providers Care Content Engineer Name Role Phone AlfredoCarroll allison Primary Care Provider [phone] Encounter Details Date Type Department Care Team (Late st Contact Info) Description 11/13/2015 Telephone [place] [id number] Tosha Castro, RN Social History Tobacco Use [...] call with additional concerns. Tosha Castro, RN [facility] Solid Organ Transplant [phone] (Pager: [phone]) documented in this encounter Plan of Treatment Not on file documented as of this encounter Visit Diagnoses Not on filedocumented in this encounter Care Teams Content Engineer Relationship Specialty Start Date End Date Carroll Fuentes DO [address] [place] [address] [address] [place] [address] PCP - General 09/23/11 10/20/22 documented as of this encounter
--- OUTSIDE RECORDS SUMMARY | 2024-05-23 13:36 | XMS_ITS | Encounter Summary ---
[place] [address] Care Team Providers Care Private Equity Analyst Name Role Phone AlfredoCarroll allison Primary Care Provider [phone] Encounter Details Date Type Department Care Team (Late st Contact Info) Description 12/19/2015 Telephone [place] [id number] Christian Leblanc Social History Tobacco Use Types [...] on filedocumented in this encounter Care Teams Private Equity Analyst Relationship Specialty Start Date End Date Carroll Fuentes DO [address] [place] [address] PCP - General 09/23/11 10/20/22 documented as of this encounter
--- OUTSIDE RECORDS SUMMARY | 2024-05-23 13:36 | XMS_ITS | Encounter Summary ---
Author Organization [place] [address] Care Team Providers Care Contact Officer Name Role Phone Carroll Fuentes DO Primary Care Provider [phone] Reason for Referral * Diagnostic Test (Routine) - Closed Specialty Diagnoses / Procedures Referred By Contac t Referred To Contact Radiology Diagnoses Neck mass Procedures CT Neck Wo Contrast Miguel Angel Moreno MD [facility] [place] [address] [facility] [place] [address] Referral ID Status Reason Start Date Expiration Date V isits Requested Visits Authorized [id number] Closed Specialty Service Requested 11/22/2015 02/20/2016 1 1 Reason for Visit * Diagnostic Test (Routine) - Closed Specialty Diagnoses / Procedures Referred By Contac t Referred To Contact Radiology Diagnoses Neck mass Procedures CT Neck Wo Contrast Miguel Angel Moreno MD [facility] [place] [address] [facility] [place] [address] Referral ID Status Reason Start Date Expiration Date V isits Requested Visits Authorized [id number] Closed Specialty Service Requested 11/22/2015 02/20/2016 1 1 Encounter Details Date Type Department Care Team (Latest Contact Info) Description 12/03/2015 7:39 AM EDT - 12/03/2015 11:59 PM EDT Hospital Encounter CT Scan at [facility] [place] [address] Miguel Angel Moreno MD [facility] [place] [address] Neck mass Discharge Disposition: Home Social History [...] neck documented in this encounter Care Teams Contact Officer Relationship Specialty Start Date End Date Carroll Fuentes DO [address] [facility] [place] [address] PCP - General 09/23/11 10/20/22 documented as of this encounter
--- OUTSIDE RECORDS SUMMARY | 2024-05-23 13:36 | XMS_ITS | Encounter Summary ---
Author Organization [facility] Address [facility] [place] [address] Care Team Providers Care Senior Backup Administrator Name Role Phone AlfredoCarroll allison Primary Care Provider [phone] Encounter Details Date Type Department Care Team (Late st Contact Info) Description 12/03/2015 11:30 AM EDT Office Visit [place] [address] Stephanie Ireland MD [facility] [place] [address] A-V fistula Social History Tobacco Use Types [...] performed by SABRINA SANCHEZ at [facility] MAIN OR ? ? Pro exc skin malig >4cm trunk, arm, leg 04/19/2012 EXC MALIGNANT LESION, MICHAEL > 4.0CM, TRUNK performed by SABRINA SANCHEZ at [facility] MAIN OR ??? Pro vascular surgery procedure unlist Left 11/20/2015 LIGATION\REPAIR AV FISTULA performed by Stephanie Ireland MD at [facility] MAIN OR ??? Pro vascular surgery procedure unlist Left 11/20/2015 EXCISION VEIN FROM HAND performed by Stephanie Ireland MD at [facility] MAIN OR Family History: No family [...] acquired documented in this encounter Care Teams Senior Backup Administrator Relationship Specialty Start Date End Date Carroll Fuentes DO [address] [place], [place] [address]Y [facility] 1 [place] [address] PCP - General 09/23/11 10/20/22 documented as of this encounter
--- OUTSIDE RECORDS SUMMARY | 2024-05-23 13:36 | XMS_ITS | Encounter Summary ---
Author Organization [facility] Address [facility] [place] [address] Care Team Providers Care Mannequin Mold Maker Name Role Phone AlfredoCarroll allison Primary Care Provider [phone] Reason for Visit * Reason Comments Kidney Transplant Follow-up Immunotherapy Encounter Details Date Type Department Care Team (Late st Contact Info) Description 12/03/2015 12:00 PM EDT Office Visit [place] [address] Anup Hawkins MD [facility] [place] [address] Kidney replaced by transplant; Healthcare maintenance; Need [...] Hawkins MD - 12/03/2015 7:30 PM EDT [facility] Transplant Nephrology Follow Up Date: 12/03/15 Patient: [...] recently. Trying to get employed at the [employer] but havingdifficulty. BP 100/74 today, 110s at [...] for diabetics, every 5 for non diabetics [place] kidney ultrasound looking for renal cell CA, [...] replaced by transplant 11/26/2002. Z94.0 09/13/15 Yes Anup Hawkins MD hydrALAZINE (APRESOLINE) 50 [...] Montes De Oca, DO Nephrology Fellow Pager #[phone] I reviewed all of the above findings [...] Hemoglobin A1c 5.9(H) 4.3 - 5.6 % [facility] Comment: Reference Range: 4.3 - [...] Mellitus, Diabetes Care 2013; 36: Suppl. 1, W57-46 Estimated Average Glucose 123 mg/dL [facility] Comment: eAG equivalents for HbA1c percentages: HbA1c(%) ?eAG(mg/dL) 6.0 ?126 6.5 ?140 7.0 ?154 7.5 ?169 8.0 ?183 8.5 ?197 9.0 ?212 9.5 ?226 10.0 ? 240 Limitations: The eAG calculation has not been validated on women, individuals below 18 years old and above 70 years old, and individuals with hemoglobinopathies. Additional resources are available on the [employer] website: http://On[employer]/DHadacalc Rakesh GREWAL, Ashish J, Lizzette R, et al. ??Translating the A1C assay into estimated average glucose values. ??Diabetes Care 2008:31(8):3052-0773. Blood specimen (specimen) 12/03/2015 11:06 AM EDT 12/03/2015 11:16 AM EDT Narrative Resulting Agency Comment Spec In Lab Anup Hawkins MD CHEMISTRY ORDERAB LES Performing Organization Address [facility] de Phone Number [facility] [place] [address] * Lavender Tube HOLD (12/03/2015 11:06 AM EDT) Lavender Hold Sample in lab. [facility] Blood specimen (specimen) 12/03/2015 11:06 AM EDT 12/03/2015 11:16 AM EDT Anup Hawkins MD HEMATOLOGY ORDERA BLES Performing Organization Address [facility] Co de Phone Number [facility] [place] [address] * Gold Tube HOLD (12/03/2015 11:06 AM EDT) Gold Hold Sample in lab. [facility] Blood specimen (specimen) 12/03/2015 11:06 AM EDT 12/03/2015 11:16 AM EDT Anup Hawkins MD CHEMISTRY ORDERAB LES Performing Organization Address [facility] Co de Phone Number [facility] [place] [address] * (ABNORMAL) VIT D Total Evaluation (12/03/2015 11:06 AM EDT) Vitamin D Total 25 OH 28(L) 30 - 100 ng/mL [facility] Comment: Deficient <10 ng/mL Insufficient 10 to 29 ng/mL Sufficient 30 to 100 ng/mL Potential Intoxication >100 ng/mL According to the [place] National Osteoporosis Foundation, Vitamin D concentrations >30 ng/mL are sufficient to protect bone health. ??The National Kidney Foundation has similarly stated that patients with Vitamin D concentrations <30ng/mL should be considered to be insufficient or deficient. http://[employer]/DHnatlkidneyfoundation http://[employer]/DHSEAT 4aVitD The [employer] i[employer] Vitamin D Immunoassay detects both 25-OH Vitamin D2 and 25-OH Vitamin D3, but only a total Vitamin D concentration is reported. Blood specimen (specimen) 12/03/2015 11:06 AM EDT 12/03/2015 11:16 AM EDT Narrative Resulting Agency Comment Spec In Lab Anup Hawkins MD CHEMISTRY ORDERAB LES Performing Organization Address City/[facility]/ZIP Co de Phone Number [facility] [place] [address] * 1,25-dihydroxycholecalciferol (12/03/2015 11:06 AM EDT) Pathologist [facility] Vit D 1,25 Dihydroxy (NOVEMBER) 54 18 - 64 pg/mL [facility] Comment: Test Performed by: [place] [address] 4Th Grade Teacher: Swapnil Torres II, M.D., Ph.D. Blood specimen (specimen) 12/03/2015 11:06 AM EDT 12/03/2015 2:15 PM EDT Narrative Resulting Agency Comment Spec In Lab Anup Hawkins MD LAB SEND OUT RYAN CALERO [facility] [place] [address] * PTH (12/03/2015 11:06 AM EDT) Parathyroid Hormone 57 15 - 65 pg/mL [facility] Blood specimen (specimen) 12/03/2015 11:06 AM EDT 12/03/2015 11:16 AM EDT Narrative Resulting Agency Comment Spec In Lab Anup Hawkins MD CHEMISTRY ORDERAB LES [facility] [place] [address] * Tacrolimus level (12/03/2015 11:06 AM EDT) Tacrolimus 3.0 ng/mL [facility] Comment:Trough therapeutic: 5-15 ng/mL Blood specimen (specimen) 12/03/2015 11:06 AM EDT 12/03/2015 1:51 PM EDT Narrative Resulting Agency Comment Spec In Lab Anup Hwakins MD CHEMISTRY ORDERAB LES [facility] [place] [address] * Uric acid (12/03/2015 11:06 AM EDT) Uric Acid 4.8 3.5 - 8.5 mg/dL [facility] Blood specimen (specimen) 12/03/2015 11:06 AM EDT 12/03/2015 11:16 AM EDT Narrative Resulting Agency Comment Spec In Lab Anup Hawkins MD CHEMISTRY ORDERAB LES [facility] [place] [address] * Phosphorus (12/03/2015 11:06 AM EDT) Phosphorus 3.3 2.5 - 4.5 mg/dL [facility] Blood specimen (specimen) 12/03/2015 11:06 AM EDT 12/03/2015 11:16 AM EDT Narrative Resulting Agency Comment Spec In Lab Anup Hawkins MD CHEMISTRY ORDERAB LES [facility] [address] * (ABNORMAL) Magnesium (12/03/2015 11:06 AM EDT) Magnesium 0.66(L) 0.69 - 1.07 mmol/L [facility] Blood specimen (specimen) 12/03/2015 11:06 AM EDT 12/03/2015 11:16 AM EDT Narrative Resulting Agency Comment Spec In Lab Anup Hawkins MD CHEMISTRY ORDERAB LES Performing Organization Address [facility] Co de Phone Number [facility] [place] [address] * (ABNORMAL) Lipid panel (fasting) (12/03/2015 11:06 AM EDT) Cholesterol, Total 80 <=199 mg/dL [facility] Comment: Recommendations of the NCEP Adult Treatment Panel for the following risk cutoff thresholds for the [place] population: Desirable: <200 mg/dL Borderline High: 200-239 mg/dL High: > or = 240 mg/dL Triglyceride 51 <=149 mg/dL [facility] Comment: Reference Range: Normal triglycerides: ??<150 mg/dL Borderline high: ??150-199 mg/dL High: ??200-499 mg/dL Very high: ??>ke=612 mg/dL RAYMOND 2001; 285(19):4314-4188 HDL Cholesterol 25(L) >=40 mg/dL [facility] Comment: Reference range: ??Low HDL: ?? < 40 mg/dL ??Normal: ?40-60 mg/dL ??Desirable: > 60 mg/dL RAYMOND 2001; 285(19):5344-9731 LDL Cholesterol 45 <=99 mg/dL [facility] Comment: Reference range: ?? Optimal: ?<100 mg/dL ?? Near Optimal/Above Optimal: ?? 100-129 mg/dL ?? Borderline high: ?130-159 mg/dL ?? High: ? 160-189 mg/dL ?? Very high: ?>xf=765 mg/dL RAYMOND 2001: 285(19):7965-0806 Cholesterol/HDL Ratio 3.2 ratio [facility] Comment: A Cholesterol to HDL ratio below 4:1 is desirable. ??Studies suggest that increased CAD risk occurs at ratios above 5 for females and above 6 for men. ? [place] Heart Association ??(http://www.americanheart.org) ? Marizol Int Med, 1994; 121:641 ? AM J Med, 1998; 105(1A):48S Blood specimen (specimen) 12/03/2015 11:06 AM EDT 12/03/2015 11:16 AM EDT Narrative Resulting Agency Comment Spec In Lab Anup Hawkins MD CHEMISTRY ORDERAB LES [facility] [place] [address] * (ABNORMAL) Reticulocyte Count (12/03/2015 11:06 AM EDT) Reticulocyte % 0.9 0.5 - 2.4 % [facility] Retic Abs # 0.030 0.027 - 0.095 x10(6)/mcL [facility] Immature Retic% 2.2(L) 2.3 - 15.9 % [facility] Reticulated Hgb 31.4 28.5 - 38.9 pg [facility] Immature Plt % 1.2 0.0 - 7.4 % [facility] Blood specimen (specimen) 12/03/2015 11:06 AM EDT 12/03/2015 11:16 AM EDT Narrative Resulting Agency Comment Spec In Lab Anup Hawkins MD HEMATOLOGY ORDERA BLES [facility] [place] [address] * (ABNORMAL) CMP w/fasting Glucose (12/03/2015 11:06 AM EDT) Glucose Fasting 96 65 - 99 mg/dL [facility] Comment: ?Fasting* Glucose Interpretive Criteria [...] of Diabetes Mellitus, Position Statement from the [place] Diabetes Association. ??Diabetes Care, Volume 33, Supplement 1, Jul 2009 Blood Urea Nitrogen 42(H) 10 - 20 mg/dL [facility] Creatinine 2.25(H) 0.80 - 1.50 mg/dL [facility] Comment: Please note that the pediatric reference intervals supplied above were not validated at [facility]. Results from pediatric patients should be interpreted in conjunction to the patient's age, height and muscle mass. Sodium 142 135 - 145 mmol/L [facility] Potassium 5.3(H) 3.5 - 5.0 mmol/L [facility] Comment: Please note: ??Patients with WBC >100,000 may have falsely elevated Potassium levels. ??For accurate Potassium quantification in these patients send serum separator tube (gold top) for subsequent determinations. ??Contact the Clinical Chemistry Laboratory if there are any questions. Chloride 110(H) 98 - 107 mmol/L [facility] Carbon Dioxide 17(L) 22 - 31 mmol/L [facility] Anion Gap 15 5 - 15 mmol/L [facility] Calcium 8.3(L) 8.5 - 10.5 mg/dL [facility] Protein, Total 6.3 6.1 - 8.0 gm/dL [facility] Albumin 4.0 3.2 - 5.2 gm/dL [facility] Aspartate Aminotransferase 17 0 - 39 unit/L [facility] Alanine Aminotransferase 12 0 - 55 unit/L [facility] Alkaline Phosphatase 138(H) 40 - 120 unit/L [facility] Bilirubin, Total 0.3 0.2 - 1.3 mg/dL [facility] Bilirubin, Direct 0.1 0.0 - 0.3 mg/dL [facility] Est Glomerular Filtration Rate 31(L) >=60 [facility] Comment: This estimated GFR (eGFR) [...] the following links into your internet browser. [email or web address]/DHnkdep [email or web address]/DHMCnkf Blood specimen (specimen) 12/03/2015 11:06 AM EDT 12/03/2015 11:16 AM EDT Narrative Resulting Agency Comment Spec In Lab Anup Hawkins MD CHEMISTRY ORDERAB LES [facility] [place] [address] documented in this encounter Visit Diagnoses Diagnosis Kidney replaced by transplant Healthcare maintenance Routine general medical examination at a [facility] care facility Need for prophylactic immunotherapy Anemia of chronic renal failure, stage 3 (moderate) documented in this encounter Care Teams Mannequin Mold Maker Relationship Specialty Start Date End Date Carroll Fuentes DO [address] [place] [address] PCP - General 09/23/11 10/20/22 documented as of this encounter
--- OUTSIDE RECORDS SUMMARY | 2024-05-23 13:36 | XMS_ITS | Encounter Summary ---
Author Organization [facility] Address [facility] [place] [address] Care Team Providers Care Pneumatic Press Hand Name Role Phone Carroll Fuentes DO Primary Care Provider [phone] Reason for Visit * Reason Comments Medication Refill Encounter Details Date Type Department Care Team (Late st Contact Info) Description 12/12/2015 Refill [place] [address] Anup Hawkins MD [facility] [place] [address] Social History Tobacco Use Types Packs/Day Years [...] on filedocumented in this encounter Care Teams Pneumatic Press Hand Relationship Specialty Start Date End Date Carroll Fuentes DO [address] [place] [address] PCP - General 3/14/12 4/11/23 documented as of this encounter
--- OUTSIDE RECORDS SUMMARY | 2024-05-23 13:36 | XMS_ITS | Encounter Summary ---
Author Organization [facility] [place] [address] Care Team Providers Care Cook Italian Style Food Name Role Phone AlfredoCarroll allison Primary Care Provider Encounter Details Date Type Department Care Team (Late st Contact Info) Description 12/18/2015 Telephone [place] [address] Autumn Burgos, RN Social History Tobacco Use [...] PM EDT -Caller: Adama -Call Back Number: [phone] -Reason for Call/Question: BP Values 7 @ [...] on filedocumented in this encounter Care Teams Cook Italian Style Food Relationship Specialty Start Date End Date Carroll Fuentes DO [address] [place] [address] PCP - General 09/23/11 10/20/22 documented as of this encounter
--- OUTSIDE RECORDS SUMMARY | 2024-05-23 13:37 | XMS_ITS | Encounter Summary ---
Author Organization [facility] [place] [address] Care Team Providers Care Delinquent Account Clerk Name Role Phone Carroll Fuentes DO Primary Care Provider [phone] Reason for Visit * Reason Comments Medication Refill Encounter Details Date Type Department Care Team (Late st Contact Info) Description 12/07/2013 Refill [place] [address] Anup Hawkins MD [facility] [place] [address] Social History Tobacco Use Types Packs/Day Years [...] on filedocumented in this encounter Care Teams Delinquent Account Clerk Relationship Specialty Start Date End Date Carroll Fuentes DO [address] [place] [address] PCP - General 09/23/11 10/20/22 documented as of this encounter
--- OUTSIDE RECORDS SUMMARY | 2024-05-23 13:37 | XMS_ITS | Encounter Summary ---
Author Organization [facility] Address [facility] [place] [address] Care Team Providers Care Beverage Server Name Role Phone AlfredoCarroll allison Primary Care Provider [phone] Encounter Details Date Type Department Care Team (Latest Contact Info) Description 02/20/2014 8:43 PM EDT - 02/20/2014 11:59 PM EDT Hospital [place] [address] Anup Hawkins MD [facility] [place] [address] Discharge Disposition: Home Social History Tobacco Use [...] 10:15 AM EDT) Tacrolimus 4.5 ng/mL [facility] Comment:Trough therapeutic: 5-15 ng/mL Blood specimen (specimen) 02/20/2014 10:15 AM EDT 02/21/2014 8:15 AM EDT Narrative Resulting Agency Comment Spec In Lab Anup Hawkins MD CHEMISTRY ORDERAB LES Performing Organization Address City/State/[facility] Co de Phone Number [facility] documented in this encounter Visit Diagnoses Not on filedocumented in this encounter Care Teams Beverage Server Relationship Specialty Start Date End Date Carroll Fuentes DO [address] [place] [address] [address] [place] [address] PCP - General 09/23/11 10/20/22 documented as of this encounter
--- OUTSIDE RECORDS SUMMARY | 2024-05-23 13:37 | XMS_ITS | Encounter Summary ---
Author Organization [facility] Address [facility] [place] [address] Care Team Providers Care Elevator Constructor Electric Name Role Phone Carroll Fuentes DO Primary Care Provider [phone] Reason for Visit * Reason Comments Medication Refill Encounter Details Date Type Department Care Team (Late st Contact Info) Description 06/25/2015 [place] [address] Alfonzo Miles MD [facility] [place] [address] Social History Tobacco Use Types Packs/Day Years [...] on filedocumented in this encounter Care Teams Elevator Constructor Electric Relationship Specialty Start Date End Date Carroll Fuentes DO [address] [place] [address] PCP - General 09/23/11 10/20/22 documented as of this encounter
--- OUTSIDE RECORDS SUMMARY | 2024-05-23 13:37 | XMS_ITS | Encounter Summary ---
[place] [address] Care Team Providers Care Admissions Gate Attendant Name Role Phone Carroll Fuentes DO Primary Care Provider Reason for Visit * Reason Onset Date Comments Medication Refill 10/23/2014 Encounter Details Date Type Department Care Team (Late st Contact Info) Description 10/23/2014 Refill [place] [address] Autumn Burgos, RN S/P kidney transplant Social [...] transplant documented in this encounter Care Teams Admissions Gate Attendant Relationship Specialty Start Date End Date Carroll Fuentes DO [address] [place] [address] PCP - General 09/23/11 10/20/22 documented as of this encounter
--- OUTSIDE RECORDS SUMMARY | 2024-05-23 13:37 | XMS_ITS | Encounter Summary ---
[place] [address] Care Team Providers Care Urology Physician Assistant Name Role Phone Carroll Fuentes DO Primary Care Provider [phone] Reason for Visit * Reason Onset Date Comments Medication Refill 09/13/2015 Encounter Details Date Type Department Care Team (Late st Contact Info) Description 09/13/2015 Refill [place] [phone] Tosha Castro, RN Social History Tobacco Use [...] on filedocumented in this encounter Care Teams Urology Physician Assistant Relationship Specialty Start Date End Date Carroll Fuentes DO [address] [place] [address] PCP - General 09/23/11 10/20/22 documented as of this encounter
--- OUTSIDE RECORDS SUMMARY | 2024-05-23 13:37 | XMS_ITS | Encounter Summary ---
Author Organization [facility] [place] [address] Care Team Providers Care Garage Door Service Technician Name Role Phone AlfredoCarroll allison Primary Care Provider [phone] Encounter Details Date Type Department Care Team (Late st Contact Info) Description 02/13/2014 Telephone [place] [address] Leisa Angulo Social History Tobacco Use Types [...] Angulo - 02/13/2014 10:18 AM EDT Transplant Resistor Inspector Note: notified that patient needed PA for [...] on filedocumented in this encounter Care Teams Garage Door Service Technician Relationship Specialty Start Date End Date Carroll Fuentes DO [address] [facility] [address] [place] [address] PCP - General 09/23/11 10/20/22 documented as of this encounter
--- OUTSIDE RECORDS SUMMARY | 2024-05-23 13:37 | XMS_ITS | Encounter Summary ---
[place] [address] Care Team Providers Care Document Management Consultant Name Role Phone Carroll Fuentes DO Primary Care Provider Reason for Visit * Reason Onset Date Comments Medication Refill 04/02/2015 Encounter Details Date Type Department Care Team (Late st Contact Info) Description 04/02/2015 Telephone [place] [address] Tosha Castro, sightseeing guide Refill Social History Tobacco Use Types Packs/Day [...] transplant documented in this encounter Care Teams Document Management Consultant Relationship Specialty Start Date End Date Carroll Fuentes DO [address] [place] [address] PCP - General 09/23/11 10/20/22 documented as of this encounter
--- OUTSIDE RECORDS SUMMARY | 2024-05-23 13:37 | XMS_ITS | Encounter Summary ---
[place] [address] Care Team Providers Care Barman Name Role Phone Carroll Fuentes DO Primary Care Provider Reason for Visit * Reason Onset Date Comments Medication Refill 12/13/2014 Encounter Details Date Type Department Care Team (Late st Contact Info) Description 12/13/2014 Refill [place] [phone] Autumn Burgos, RN High level of uric [...] chemistry documented in this encounter Care Teams Barman Relationship Specialty Start Date End Date Carroll Fuentes DO [address] [place] [address] PCP - General 09/23/11 10/20/22 documented as of this encounter
--- OUTSIDE RECORDS SUMMARY | 2024-05-23 13:37 | XMS_ITS | Encounter Summary ---
Author Organization Replaced By [facility] Address [facility] [place] [address] Care Team Providers Care Service Developer Name Role Phone AlfredoCarroll allison Primary Care Provider [phone] Encounter Details Date Type Department Care Team (Late st Contact Info) Description 01/11/2014 Telephone Solid [place] [address] Anand Winn I, [place] [address] Social History Tobacco Use Types Packs/Day Years [...] filedocumented in this encounter Care Teams Service Developer Relationship Specialty Start Date End Date Carroll Fuentes DO [address] [place] [address] PCP - General 09/23/11 10/20/22 documented as of this encounter
--- OUTSIDE RECORDS SUMMARY | 2024-05-23 13:37 | XMS_ITS | Encounter Summary ---
Author Organization [facility] Address [facility] [place] [address] Care Team Providers Care Pit Supervisor Name Role Phone Carroll Fuentes DO Primary Care Provider [phone] Reason for Visit * Reason Comments Medication Refill Encounter Details Date Type Department Care Team (Late st Contact Info) Description 10/24/2015 [place] [address] Alfonzo Miles MD [facility] [place] [address] Social History Tobacco Use Types Packs/Day Years [...] filedocumented in this encounter Care Teams Pit Supervisor Relationship Specialty Start Date End Date Carroll Fuentes DO [address] [place] [address] PCP - General 09/23/11 10/20/22 documented as of this encounter
--- OUTSIDE RECORDS SUMMARY | 2024-05-23 13:37 | XMS_ITS | Encounter Summary ---
Author Organization [facility] Address [facility] [place] [address] Care Team Providers Care Java Grails Developer Name Role Phone AlfredoCarroll allison Primary Care Provider [phone] Encounter Details Date Type Department Care Team (Latest Contact Info) Description 01/01/2015 8:01 PM EDT - 01/01/2015 11:59 PM EDT Hospital [place] [address] [facility] [place] [address] Discharge Disposition: Home Social History Tobacco Use [...] Lab Anup Hawkins MD CHEMISTRY ORDERAB LES [facility] documented in this encounter Visit Diagnoses Not on filedocumented in this encounter Care Teams Java Grails Developer Relationship Specialty Start Date End Date Carroll Fuentes DO [address] [place] [address] PCP - General 09/23/11 10/20/22 documented as of this encounter
--- OUTSIDE RECORDS SUMMARY | 2024-05-23 13:37 | XMS_ITS | Encounter Summary ---
[place] [address] Care Team Providers Care Lowerator Operator Name Role Phone Carroll Fuentes DO Primary Care Provider Reason for Visit * Reason Onset Date Comments Medication Refill 07/17/2014 Encounter Details Date Type Department Care Team (Late st Contact Info) Description 07/17/2014 Telephone [place] [address] Tosha Castro, lunchroom supervisor Refill Social History Tobacco Use Types Packs/Day [...] on filedocumented in this encounter Care Teams Lowerator Operator Relationship Specialty Start Date End Date Carroll Fuentes DO [address] [place] [address] PCP - General 09/23/11 10/20/22 documented as of this encounter
--- OUTSIDE RECORDS SUMMARY | 2024-05-23 13:37 | XMS_ITS | Encounter Summary ---
[place] [address] Care Team Providers Care Teaching Associate Name Role Phone Carroll Fuentes DO Primary Care Provider [phone] Reason for Visit * Reason Onset Date Comments Medication Refill 03/07/2015 Encounter Details Date Type Department Care Team (Late st Contact Info) Description 03/07/2015 Refill [place] [address] Autumn Burgos, RN Social History Tobacco Use [...] on filedocumented in this encounter Care Teams Teaching Associate Relationship Specialty Start Date End Date Carroll Fuentes DO [address] [place] [address] PCP - General 09/23/11 10/20/22 documented as of this encounter
--- OUTSIDE RECORDS SUMMARY | 2024-05-23 13:37 | XMS_ITS | Encounter Summary ---
Author Organization [facility] Address [facility] [place] [address] Care Team Providers Care Pipeline Executive Name Role Phone AlfredoCarroll allison Primary Care Provider Encounter Details Date Type Department Care Team (Latest Contact Info) Description 03/06/2014 8:31 PM EDT - 03/06/2014 11:59 PM EDT Hospital [place] [address] Anup Hawkins MD [facility] [place] [address] Discharge Disposition: Home Social History Tobacco Use [...] (03/06/2014 11:45 AM EDT) Tacrolimus <3.0 ng/mL [facility] Comment:Trough therapeutic: 5-15 ng/mL Blood specimen (specimen) 03/06/2014 11:45 AM EDT 03/07/2014 8:14 AM EDT Narrative Resulting Agency Comment Spec In Lab Anup Hawkins MD CHEMISTRY ORDERAB LES Performing Organization Address City/State/[facility] Co de Phone Number [facility] documented in this encounter Visit Diagnoses Not on filedocumented in this encounter Care Teams Pipeline Executive Relationship Specialty Start Date End Date Carroll Fuentes DO [address] [place] [address] [address] [place] [address] PCP - General 09/23/11 10/20/22 documented as of this encounter
--- OUTSIDE RECORDS SUMMARY | 2024-05-23 13:37 | XMS_ITS | Encounter Summary ---
Author Organization [facility] Address [facility] [place] [address] Care Team Providers Care Reo Asset Manager Name Role Phone AlfredoCarroll allison Primary Care Provider [phone] Reason for Visit * Reason Comments Kidney Transplant Follow-up Diarrhea hospital follow up Encounter Details Date Type Department Care Team (Late st Contact Info) Description 04/10/2014 10:30 AM EDT Office Visit [place] [address] Anup Hawkins MD [facility] [place] [address] Transplanted kidney; Need for prophylactic immunotherapy; Infectious [...] Hawkins MD - 04/09/2014 10:30 AM EDT [facility] Transplant Nephrology Follow Up Date: 04/10/2014 Patient: Adama Ram Transplant Date: 11/26/02 Organ(s) 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 He [...] to date. ??? Hepatitis C Screening (B. [id number]) ??? Pneumovax Q5 years. Up to date. [...] MD CHEMISTRY ORDERAB LES Performing Organization Address City/[facility]/ZIP Co de Phone Number CERNER MILLENNIUM * (ABNORMAL) Differential, Automated (04/10/2014 9:52 AM EDT) Pathologist [facility] Neutrophil % 71.5(H) 34.0 - 71.0 % [...] MD HEMATOLOGY ORDERA BLES Performing Organization Address City/[facility]/ZIP Co de Phone Number CERSHANNAN SIMONIUM * [...] Lab Anup Hawkins MD HEMATOLOGY ORDERA BLES [facility] * VIT D Total Evaluation (04/10/2014 9:52 AM EDT) Vitamin D Total 25 OH 36 30 - 100 ng/mL [facility] Comment: Deficient <10 ng/mL Insufficient 10 to 29 ng/mL Sufficient 30 to 100 ng/mL Potential Intoxication >100 ng/mL According to the [place] National Osteoporosis Foundation, Vitamin D concentrations >30 ng/mL are sufficient to protect bone health. ??The National Kidney Foundation has similarly stated that patients with Vitamin D concentrations <30ng/mL should be considered to be insufficient or deficient. http://Forever/DHnatlkidneyfoundation http://Forever/DHIZI Medical ProductsVitD [employer] i[employer] Vitamin D Immunoassay detects both 25-OH Vitamin D2 and 25-OH Vitamin D3, but only a total Vitamin D concentration is reported. Blood specimen (specimen) 04/10/2014 9:52 AM EDT 04/10/2014 9:57 AM EDT Narrative Resulting Agency Comment Spec In Lab Anup Hawkins MD CHEMISTRY ORDERAB LES Performing Organization Address [facility] Co de Phone Number [facility] * 1,25-dihydroxycholecalciferol (04/10/2014 9:52 AM EDT) Vit D 1,25 Dihydroxy (NOVEMBER) 37 18 - 64 pg/mL [facility] Comment: Test Performed by: [place] [address] Dirt Bike Racer: Wolf Love M.D. Blood specimen (specimen) 04/10/2014 9:52 AM EDT 04/10/2014 10:51 AM EDT Narrative Resulting Agency Comment Spec In Lab Anup Hawkins MD LAB SEND OUT ORDE RABLES Performing Organization Address City/[facility]/ZIP Co de Phone Number [facility] * PTH (04/10/2014 9:52 AM [...] ORDERAB LES Performing Organization Address [facility] Co de Phone Number BUSHRA HUERTAENNIUM * (ABNORMAL) Iron and TIBC (04/10/2014 9:52 AM EDT) Iron 62 45 - 160 mcg/dL CERNER MILLENNIUM TIBC 177(L) 250 - 450 mcg/dL [facility] MILLEN[facility]UM Iron Saturation 35 20 - 50 % [facility] MILLENNIUM Blood specimen (specimen) 04/10/2014 9:52 AM EDT 04/10/2014 9:57 AM EDT Narrative Resulting Agency Comment Spec In Lab Anup Hawkins MD CHEMISTRY ORDERAB LES Performing Organization Address City/[facility]/ZIP Co de Phone Number BUSHRA HUERTAENNIUM * [...] Comment: Pediatric reference ranges not verified at [facility], interpret with caution. Reference ranges for females greater than 50 years of age approach values for men, i.e., 30-400 ng/mL. Blood specimen (specimen) 04/10/2014 9:52 AM EDT 04/10/2014 9:57 AM EDT Narrative Resulting Agency Comment Spec In Lab Anup Hawkins MD CHEMISTRY ORDERAB LES Performing Organization Address [facility] Co de Phone Number [facility]USHRA HUERTABANNER [facility]OT[facility] MEDICAL CENTERMONE * (ABNORMAL) TSH (04/10/2014 9:52 AM EDT) Thyroid Stimulating Hormone 6.50(H) 0.27 - 4.20 mcIU/mL BUSHRA SIMONIUM Blood specimen (specimen) 04/10/2014 9:52 AM EDT 04/10/2014 9:57 AM EDT Narrative Resulting Agency Comment Spec In Lab Anup Hawkins MD CHEMISTRY ORDERAB LES Performing Organization Address [facility] de Phone Number BUSHRA DOYLE * (ABNORMAL) Prothrombin Time (04/10/2014 9:52 AM EDT) Prothrombin Time 23.5(H) 12.5 - 15.5 sec BUSHRA SIMONIUM Comment: [facility] Transfusion Committee Guidelines: INR less [...] MD HEMATOLOGY ORDERA BLES Performing Organization Address City/[facility] Co de Phone Number [facility] * Tacrolimus level (04/10/2014 9:52 AM EDT) Tacrolimus 3.5 ng/mL [facility] Comment:Trough therapeutic: 5-15 ng/mL Blood specimen (specimen) 04/10/2014 9:52 AM EDT 04/10/2014 12:13 PM EDT Narrative Resulting Agency Comment Spec In Lab Anup Hawkins MD CHEMISTRY ORDERAB LES Performing Organization Address [facility] Co de Phone Number [facility] * Uric acid (04/10/2014 9:52 AM EDT) Uric Acid 4.3 3.5 - 8.5 mg/dL [facility] Blood specimen (specimen) 04/10/2014 9:52 AM EDT 04/10/2014 9:57 AM EDT Narrative Resulting Agency Comment Spec In Lab Anup Hawkins MD CHEMISTRY ORDERAB LES Performing Organization Address City/[facility] Co de Phone Number [facility] * Phosphorus (04/10/2014 9:52 AM EDT) Phosphorus 2.7 2.5 - 4.5 mg/dL [facility] Blood specimen (specimen) 04/10/2014 9:52 AM EDT 04/10/2014 9:57 AM EDT Narrative Resulting Agency Comment Spec In Lab Anup Hawkins MD CHEMISTRY ORDERAB LES Performing Organization Address [facility] Co de Phone Number [facility] * (ABNORMAL) Magnesium (04/10/2014 9:52 AM EDT) Magnesium 0.68(L) 0.69 - 1.07 mmol/L [facility] Blood specimen (specimen) 04/10/2014 9:52 AM EDT 04/10/2014 9:57 AM EDT Narrative Resulting Agency Comment Spec In Lab Anup Hawkins MD CHEMISTRY ORDERAB LES BUSHRA DOYLE * (ABNORMAL) Lipid panel (fasting) (04/10/2014 9:52 AM EDT) Cholesterol, Total 73 <=199 mg/dL CERNER MILLENNIUM Comment: Recommendations of the NCEP Adult Treatment Panel for the following risk cutoff thresholds for the [place] population: Desirable: <200 mg/dL Borderline High: 200-239 mg/dL High: > or = 240 mg/dL Triglyceride 66 <=149 mg/dL CERNER MILLENNIUM Comment: Reference Range: Normal triglycerides: ??<150 mg/dL Borderline high: ??150-199 mg/dL High: ??200-499 mg/dL Very high: ??>kx=798 mg/dL RAYMOND 2001; 285(19):9154-0216 HDL Cholesterol 22(L) >=40 mg/dL CER NER MILLENNIUM Comment: Reference range: ??Low HDL: ?? < 40 mg/dL ??Normal: ?40-60 mg/dL ??Desirable: > 60 mg/dL RAYMOND 2001; 285(19):5262-9655 LDL Cholesterol 38 <=99 mg/dL CER NER MILLENNIUM Comment: Reference range: ?? Optimal: ?<100 mg/dL ?? Near Optimal/Above Optimal: ?? 100-129 mg/dL ?? Borderline high: ?130-159 mg/dL ?? High: ? 160-189 mg/dL ?? Very high: ?>ri=561 mg/dL RAYMOND 2001: 285(19):4768-3037 Cholesterol/HDL Ratio 3.3 ratio CERNER MILLENNIUM Comment: A Cholesterol to HDL ratio below 4:1 is desirable. ??Studies suggest that increased CAD risk occurs at ratios above 5 for females and above 6 for men. ? [place] Heart Association ??(http://www.americanheart.org) ? Marizol Int Med, 1994; 121:641 ? AM J Med, 1998; 105(1A):48S Blood specimen (specimen) 04/10/2014 9:52 AM EDT 04/10/2014 9:57 AM EDT Narrative Resulting Agency Comment Spec In Lab Anup Hawkins MD CHEMISTRY ORDERAB LES Performing Organization Address [facility] de Phone Number CERNER MILLENNIUM * [...] ORDERA BLES Performing Organization Address [facility] de Phone Number CERNER MILLENNIUM * [...] of Diabetes Mellitus, Position Statement from the [place] Diabetes Association. ??Diabetes Care, Volume 33, Supplement 1, Jul 2009 Blood Urea Nitrogen 26(H) 10 - 20 mg/dL CERNER MILLENNIUM Creatinine 1.72(H) 0.80 - 1.50 mg/dL CERNER MILLENNIUM Comment: Please note that the pediatric reference intervals supplied above were not validated at [facility]. Results from pediatric patients should be interpreted [...] the following links into your internet browser. http://Forever/DHnkdep http://Forever/DHMCnkf Blood specimen (specimen) 04/10/2014 9:52 AM EDT 04/10/2014 9:57 AM EDT Narrative Resulting Agency Comment Spec In Lab Anup Hawkins MD CHEMISTRY ORDERAB LES Performing Organization Address [facility] Co de Phone Number CERBeijing Tenfen Science and TechnologyENNIUM * (ABNORMAL) Protein/Creatinine Ratio, urine (04/10/2014 9:49 AM EDT) Creatinine, Urine 100 mg/dL CERNER MILLENNIUM Protein, Urine 92(H) 0 - 12 mg/dL CERNER MILLENNIUM Protein / Creatinine Ratio, Urine 0.9 ratio CERNER MILLENNIUM Urine specimen (specimen) 04/10/2014 9:49 AM EDT 04/10/2014 9:54 AM EDT Narrative Resulting Agency Comment Spec In Lab Anup Hawkins MD URINE ORDERABLES Performing Organization Address [facility] de Phone Number CERNER ECORE InternationalENNIUM * (ABNORMAL) Urinalysis with microscopic (04/10/2014 9:49 [...] Urine Dipstick Clear Clear CERNER MILLENNIUM Specific [place] Urine Automated 1.016 1.002 - 1.030 CERNER MILLENNIUM Color, Urine Dipstick Yellow Yellow CERNER MILLENNIUM RBC, Urine <1 0 - 3 /HPF CERNER MILLENNIUM WBC, Urine <1 0 - 3 /HPF CERNER MILLENNIUM Urine specimen (specimen) 04/10/2014 9:49 AM EDT 04/10/2014 9:54 AM EDT Narrative Resulting Agency Comment Spec In Lab Anup Hawkins MD URINE ORDERABLES [facility] documented in this encounter Visit Diagnoses Diagnosis Transplanted kidney Kidney replaced by transplant Need for prophylactic immunotherapy Infectious diarrhea in adult patient Infectious diarrhea documented in this encounter Care Teams Reo Asset Manager Relationship Specialty Start Date End Date Carroll Fuentes DO [address] [place] [address] PCP - General 09/23/11 10/20/22 documented as of this encounter
--- OUTSIDE RECORDS SUMMARY | 2024-05-23 13:37 | XMS_ITS | Encounter Summary ---
[place] [address] Care Team Providers Care Test Cell Technician Name Role Phone Carroll Fuentes DO Primary Care Provider [phone] Reason for Visit * Reason Onset Date Comments Medication Refill 07/10/2015 Encounter Details Date Type Department Care Team (Late st Contact Info) Description 07/10/2015 Refill [place] [id number] Autumn Burgos, RN High level of uric [...] chemistry documented in this encounter Care Teams Test Cell Technician Relationship Specialty Start Date End Date Carroll Fuentes DO [address] [place] [address] PCP - General 09/23/11 10/20/22 documented as of this encounter
--- OUTSIDE RECORDS SUMMARY | 2024-05-23 13:37 | XMS_ITS | Encounter Summary ---
Author Organization [facility] Address [facility] [place] [address] Care Team Providers Care Heating And Ventilation Engineer Name Role Phone Carroll Fuentes DO Primary Care Provider [phone] Reason for Visit * Reason Onset Date Comments Medication Refill 06/13/2014 Encounter Details Date Type Department Care Team (Late st Contact Info) Description 06/13/2014 Refill [place] [address] Anand Hernandez MD [facility] [place] [address] High level of uric acid in blood [...] chemistry documented in this encounter Care Teams Heating And Ventilation Engineer Relationship Specialty Start Date End Date Carroll Fuentes DO [address] [place], [place] [address] PCP - General 09/23/11 10/20/22 documented as of this encounter
--- OUTSIDE RECORDS SUMMARY | 2024-05-23 13:37 | XMS_ITS | Encounter Summary ---
Author Organization [facility] Address [facility] [address] Care Team Providers Care Jewish History Professor Name Role Phone AlfredoCarroll allison Primary Care Provider Encounter Details Date Type Department Care Team (Latest Contact Info) Description 04/22/2015 8:18 PM EDT - 04/22/2015 11:59 PM EDT Hospital [place] [address] Discharge Disposition: Home Social History Tobacco Use [...] Tacrolimus level (04/22/2015 10:00 AM EDT) Pathologist [facility] Tacrolimus 3.3 ng/mL [facility] Comment:Trough therapeutic: 5-15 ng/mL Blood specimen (specimen) Venous Draw / Unknown 04/22/2015 10:00 AM EDT 04/23/2015 8:05 AM EDT Narrative Resulting Agency Comment Spec In Lab Anup Hawkins MD CHEMISTRY ORDERAB LES Performing Organization Address City/State/[facility] Co de Phone Number [facility] documented in this encounter Visit Diagnoses Not on filedocumented in this encounter Care Teams Jewish History Professor Relationship Specialty Start Date End Date Carroll Fuentes DO [address] [place] [address] [address] [place] [address] PCP - General 09/23/11 10/20/22 documented as of this encounter
--- OUTSIDE RECORDS SUMMARY | 2024-05-23 13:37 | XMS_ITS | Encounter Summary ---
Author Organization [facility] Address [facility] [place] [address] Care Team Providers Care Credit Collector Name Role Phone Carroll Fuentes DO Primary Care Provider [phone] Reason for Visit * Reason Comments Medication Refill Encounter Details Date Type Department Care Team (Late st Contact Info) Description 12/23/2014 Refill [place] [address] Anup Hawkins MD [facility] [place] [address] Social History Tobacco Use Types Packs/Day Years [...] filedocumented in this encounter Care Teams Credit Collector Relationship Specialty Start Date End Date Carroll Fuentes DO [address] [place] [address] PCP - General 09/23/11 10/20/22 documented as of this encounter
--- OUTSIDE RECORDS SUMMARY | 2024-05-23 13:37 | XMS_ITS | Encounter Summary ---
[place] [address] Care Team Providers Care Honey Liquefier Name Role Phone Carroll Fuentes DO Primary Care Provider Reason for Visit * Reason Onset Date Comments Medication Refill 10/22/2014 Encounter Details Date Type Department Care Team (Late st Contact Info) Description 10/22/2014 Refill [place] [address] Autumn Burgos, RN S/P kidney transplant Social [...] transplant documented in this encounter Care Teams Honey Liquefier Relationship Specialty Start Date End Date Carroll Fuentes DO [address] [place] [address] PCP - General 09/23/11 10/20/22 documented as of this encounter
--- OUTSIDE RECORDS SUMMARY | 2024-05-23 13:37 | XMS_ITS | Encounter Summary ---
[place] [address] Care Team Providers Care Insurance Appraiser Name Role Phone Carroll Fuentes DO Primary Care Provider Encounter Details Date Type Department Care Team (Late st Contact Info) Description 05/30/2014 External Results [place] [address] Social History Tobacco Use Types Packs/Day Years [...] Procedure Name Priority Date/Time Associated Diagnosis Comments [facility] TRANSPLANT FOLLOW UP LABS EXTERNAL RESULTS PANEL Routine 05/23/2014 documented in this encounter Results * Transplant: Follow up lab request - External Results (05/23/2014) Historical Provider CHEMISTRY ORDERAB LES documented in this encounter Visit Diagnoses Not on filedocumented in this encounter Care Teams Insurance Appraiser Relationship Specialty Start Date End Date Carroll Fuentes DO [address] [place] [address] PCP - General 09/23/11 10/20/22 documented as of this encounter
--- OUTSIDE RECORDS SUMMARY | 2024-05-23 13:37 | XMS_ITS | Encounter Summary ---
Author Organization [facility] Address [facility] [place] [address] Care Team Providers Care Self Propelled Hot Mix Roller Operator Name Role Phone AlfredoCarroll allison Primary Care Provider [phone] Encounter Details Date Type Department Care Team (Latest Contact Info) Description 05/23/2014 8:48 AM EST - 05/23/2014 11:59 PM [facility] Hospital [place] [address] Anup Hawkins MD [facility] [place] [address] Discharge Disposition: Home Social History Tobacco Use [...] Tacrolimus level (05/23/2014 12:40 PM EST) Pathologist [facility] Tacrolimus 3.5 ng/mL [facility] Comment:Trough therapeutic: 5-15 ng/mL Blood specimen (specimen) 05/23/2014 12:40 PM EST 05/24/2014 11:57 AM EST Narrative Resulting Agency Comment Spec In Lab Anup Hawkins MD CHEMISTRY ORDERAB LES Performing Organization Address City/State/[facility] Co md Phone Number [facility] documented in this encounter Visit Diagnoses Not on filedocumented in this encounter Care Teams Self Propelled Hot Mix Roller Operator Relationship Specialty Start Date End Date Carroll Fuentes DO [address] [facility] [facility] [place] [address] PCP - General 09/23/11 10/20/22 documented as of this encounter
--- OUTSIDE RECORDS SUMMARY | 2024-05-23 13:37 | XMS_ITS | Encounter Summary ---
Author Organization [facility] Address [facility] [place] [address] Care Team Providers Care Retail Commission Sales Associate Name Role Phone Carroll Fuentes DO Primary Care Provider [phone] Reason for Visit * Reason Comments Medication Refill Encounter Details Date Type Department Care Team (Late st Contact Info) Description 02/21/2014 Refill [place] [address] Anup Hawkins MD [facility] [place] [address] Social History Tobacco Use Types Packs/Day Years [...] on filedocumented in this encounter Care Teams Retail Commission Sales Associate Relationship Specialty Start Date End Date Carroll Fuentes DO [address] [place] [address] PCP - General 09/23/11 10/20/22 documented as of this encounter
--- OUTSIDE RECORDS SUMMARY | 2024-05-23 13:37 | XMS_ITS | Encounter Summary ---
[place] [address] Care Team Providers Care Teaching Assistant Name Role Phone AlfredoCarroll allison Primary Care Provider [phone] Encounter Details Date Type Department Care Team (Late st Contact Info) Description 12/01/2013 Telephone [place] [address] Janeth Nixon, RN Social History Tobacco Use [...] Telephone Encounter - Janeth Nixon RN - 12/01/2013 8:36 PM EDT health and safety coordinator note: Adama called [email or web address] to report [...] filedocumented in this encounter Care Teams Teaching Assistant Relationship Specialty Start Date End Date Carroll Fuentes DO [address] [place] [address] PCP - General 09/23/11 10/20/22 documented as of this encounter
--- OUTSIDE RECORDS SUMMARY | 2024-05-23 13:37 | XMS_ITS | Encounter Summary ---
Author Organization [facility] Address [facility] [place] [address] Care Team Providers Care Drill Press Set Up Operator Name Role Phone Carroll Fuentes DO Primary Care Provider [phone] Reason for Visit * Reason Comments Medication Refill Encounter Details Date Type Department Care Team (Late st Contact Info) Description 01/31/2014 Refill [place] [address] Anup Hawkins MD [facility] [place] [address] Social History Tobacco Use Types Packs/Day Years [...] filedocumented in this encounter Care Teams Drill Press Set Up Operator Relationship Specialty Start Date End Date Carroll Fuentes DO [address] [place] [address] PCP - General 09/23/11 10/20/22 documented as of this encounter
--- OUTSIDE RECORDS SUMMARY | 2024-05-23 13:37 | XMS_ITS | Encounter Summary ---
[place] [address] Care Team Providers Care Vice President Quality Name Role Phone Carroll Fuentes DO Primary Care Provider Encounter Details Date Type Department Care Team (Late st Contact Info) Description 11/08/2015 Orders Only [place] [address] Tosha Castro, RN H/O kidney transplant Social [...] transplant documented in this encounter Care Teams Vice President Quality Relationship Specialty Start Date End Date Carroll Fuentes DO [address] [place] [address] PCP - General 09/23/11 10/20/22 documented as of this encounter
--- OUTSIDE RECORDS SUMMARY | 2024-05-23 13:37 | XMS_ITS | Encounter Summary ---
Author Organization [facility] Address [facility] [place] [address] Care Team Providers Care Dog Day Care Attendant Name Role Phone Carroll Fuentes DO Primary Care Provider [phone] Reason for Visit * Reason Comments Medication Refill Encounter Details Date Type Department Care Team (Late st Contact Info) Description 09/03/2015 Refill [place] [address] Anup Hawkins MD [facility] [place] [address] Social History Tobacco Use Types Packs/Day Years [...] on filedocumented in this encounter Care Teams Dog Day Care Attendant Relationship Specialty Start Date End Date Carroll Fuentes DO [address] [place] [address] PCP - General 09/23/11 10/20/22 documented as of this encounter
--- OUTSIDE RECORDS SUMMARY | 2024-05-23 13:37 | XMS_ITS | Encounter Summary ---
Author Organization [facility] Address [facility] [address] Care Team Providers Care Services Coordinator Name Role Phone AlfredoCarroll allison Primary Care Provider [phone] Encounter Details Date Type Department Care Team (Latest Contact Info) Description 11/07/2015 7:38 PM EDT - 11/07/2015 11:59 PM EDT Hospital [place] [address] Discharge Disposition: Home Social History Tobacco Use [...] on filedocumented in this encounter Care Teams Services Coordinator Relationship Specialty Start Date End Date Carroll Fuentes DO [address] [place] [address] PCP - General 09/23/11 10/20/22 documented as of this encounter
--- OUTSIDE RECORDS SUMMARY | 2024-05-23 13:37 | XMS_ITS | Encounter Summary ---
[place] [address] Care Team Providers Care Clinical Neuropsychologist Name Role Phone Carroll Fuentes DO Primary Care Provider [phone] Encounter Details Date Type Department Care Team (Late st Contact Info) Description 11/07/2015 Orders Only [place] [address] Tosha Castro, RN H/O kidney transplant Social [...] transplant documented in this encounter Care Teams Clinical Neuropsychologist Relationship Specialty Start Date End Date Carroll Fuentes DO [address] [place] [address] PCP - General 09/23/11 10/20/22 documented as of this encounter
--- OUTSIDE RECORDS SUMMARY | 2024-05-23 13:37 | XMS_ITS | Encounter Summary ---
Author Organization [facility] Address [facility] [place] [address] Care Team Providers Care Carpenter Rough Name Role Phone Carroll Fuentes DO Primary Care Provider [phone] Reason for Visit * Reason Onset Date Comments Medication Refill 02/13/2014 Encounter Details Date Type Department Care Team (Late st Contact Info) Description 02/13/2014 Refill [place] [address] Anup Hawkins MD [facility] [address] S/P kidney transplant (Primary Dx) Social History [...] transplant documented in this encounter Care Teams Carpenter Rough Relationship Specialty Start Date End Date Carroll Fuentes DO [address] [place], [place] [address] PCP - General 09/23/11 10/20/22 documented as of this encounter
--- OUTSIDE RECORDS SUMMARY | 2024-05-23 13:37 | XMS_ITS | Encounter Summary ---
[facility] Address [facility] [place] [address] Care Team Providers Care Metal Bonding Worker Name Role Phone AlfredoCarroll allison Primary Care Provider [phone] Encounter Details Date Type Department Care Team (Late st Contact Info) Description 12/13/2013 11:15 AM EDT [place] [address] Alfonzo Miles MD [facility] [place] [address] Epilepsy (Primary Dx) Discharge Disposition: Home Social [...] here Alfonzo Miles MD Department [place] [address] Pager: [phone], #[phone] Email: [email or web address] documented in this encounter Progress Notes * [...] necessary. Alfonzo Miles MD Department [place] [address] Pager: [phone], #[phone] Email: [email or web address] cc: [email or web address] FUENTES DO documented in this encounter Plan of Treatment Not on file documented as of this encounter Visit Diagnoses Diagnosis Epilepsy- Primary Unspecified epilepsy without mention of intractable epilepsy documented in this encounter Care Teams Metal Bonding Worker Relationship Specialty Start Date End Date Carroll Fuentes DO [address] [place] [address] PCP - General 09/23/11 10/20/22 documented as of this encounter
--- OUTSIDE RECORDS SUMMARY | 2024-05-23 13:37 | XMS_ITS | Encounter Summary ---
Author Organization [facility] Address [facility] [place] [address] Care Team Providers Care Label Drier Name Role Phone AlfredoCarroll allison Primary Care Provider [phone] Encounter Details Date Type Department Care Team (Latest Contact Info) Description 01/30/2015 7:23 PM EDT - 01/30/2015 11:59 PM EDT [place] [address] Anup Hawkins MD [facility] [place] [address] Discharge Disposition: Home Social History Tobacco Use [...] PM EDT) Lavender Hold Sample in lab. [facility] Blood specimen (specimen) Venous Draw / Unknown 01/30/2015 7:38 PM EDT 01/30/2015 7:39 PM EDT Anup Hawkins MD HEMATOLOGY ORDERA BLES Performing Organization Address City/[facility]/ZIP Co de Phone Number [facility] * Tacrolimus level (01/30/2015 7:38 PM EDT) Tacrolimus 6.4 ng/mL [facility] Comment:Trough therapeutic: 5-15 ng/mL Blood specimen (specimen) Venous Draw / Unknown 01/30/2015 7:38 PM EDT 01/31/2015 8:01 AM EDT Narrative Resulting Agency Comment Spec In Lab Anup Hawkins MD CHEMISTRY ORDERAB LES Performing Organization Address [facility] Co de Phone Number [facility] documented in this encounter Visit Diagnoses Not on filedocumented in this encounter Care Teams Label Drier Relationship Specialty Start Date End Date Carroll Fuentes DO [address] [place] [address] PCP - General 09/23/11 10/20/22 documented as of this encounter
--- OUTSIDE RECORDS SUMMARY | 2024-05-23 13:37 | XMS_ITS | Encounter Summary ---
Author Organization [facility] Address [facility] [place] [address] Care Team Providers Care Gauger Chief Delivery Name Role Phone AlfredoCarroll allison Primary Care Provider [phone] Reason for Visit * Reason Comments Kidney Transplant Follow-up Immunotherapy Encounter Details Date Type Department Care Team (Late st Contact Info) Description 11/28/2014 10:00 AM EDT Follow-Up [place] [address] Anup Hawkins MD [facility] [place] [address] Kidney replaced by transplant; Need for prophylactic [...] Hawkins MD - 11/28/2014 10:18 AM EDT [facility] Transplant Nephrology Follow Up Date: 11/28/2014 Patient: Adama Ram Transplant Date: 11/26/02 Organ(s) Kidney [place] organ diagnosis: IgA Nephropathy Days from Transplant: [...] to date. ??? Hepatitis C Screening (B. [id number]) ??? Pneumovax Q5 years. Up to date. [...] UPPER EXTREMITY performed by SABRINA SANCHEZ at [facility] MAIN OR ? ? Exc skin malig >4cm trunk, arm, leg 04/19/2012 EXC MALIGNANT LESION, MICHAEL > 4.0CM, TRUNK performed by SABRINA SANCHEZ at [facility] MAIN OR No family history [...] w Dr nicole Rodríguez Nephrology Fellow Pager #[phone] I examined the patient, reviewed all of [...] Differential, Automated (11/28/2014 9:52 AM EDT) Pathologist [facility] Neutrophil % 68.8 % [facility] Neutrophil Absolute 2.69 1.50 - [...] Hemoglobin Concentration 33.4 32.0 - 36.5 gm/dL [facility] Platelet 173 145 - 370 x10(3)/mc L CERSHANNAN HUERTAENNIUM RDW Standard Deviation 44.7 35.0 - 46.0 fL [facility] RDW coefficient of variation 13.7 10.9 - 14.4 % [facility]ABRA[facility]LE[facility] Mean Platelet Volume 9.5 9.0 - 12.0 fL [facility] Blood specimen (specimen) 11/28/2014 9:52 AM EDT 11/28/2014 10:02 AM EDT Narrative Resulting Agency Comment Spec In Lab Anup Hawkins MD HEMATOLOGY KRISHNAA MARISOL [facility] * (ABNORMAL) Hemoglobin A1c (11/28/2014 9:52 AM EDT) Hemoglobin A1c 5.7(H) 4.3 - 5.6 % [facility] Comment: Reference Range: 4.3 - [...] Mellitus, Diabetes Care 2013; 36: Suppl. 1, Y17-95 Estimated Average Glucose 117 mg/dL [facility] Comment: eAG equivalents for HbA1c percentages: HbA1c(%) ?eAG(mg/dL) 6.0 ?126 6.5 ?140 7.0 ?154 7.5 ?169 8.0 ?183 8.5 ?197 9.0 ?212 9.5 ?226 10.0 ? 240 Limitations: The eAG calculation has not been validated on women, individuals below 18 years old and above 70 years old, and individuals with hemoglobinopathies. Additional resources are available on the ADA website: http://Unityware.[employer]/DHMCadacalc Rakesh GREWAL, Ashish J, Lizzette R, et al. ??Translating the A1C assay into estimated average glucose values. ??Diabetes Care 2008:31(8):3548-0591. Blood specimen (specimen) 11/28/2014 9:52 AM EDT 11/28/2014 10:02 AM EDT Narrative Resulting Agency Comment Spec In Lab Anup Hawkins MD CHEMISTRY ORDERAB LES Performing Organization Address [facility] de Phone Number [facility] * Lavender Tube HOLD (11/28/2014 9:52 AM EDT) Lavender Hold Sample in lab. BUSHRA DOYLE Blood specimen (specimen) 11/28/2014 9:52 AM EDT 11/28/2014 10:02 AM EDT Anup Hawkins MD HEMATOLOGY ORDERA BLES Performing Organization Address [facility] de Phone Number [facility]USH[facility]ERTAR[facility] * Gold Tube HOLD (11/28/2014 9:52 AM EDT) Gold Hold Sample in lab. [facility] [employer] Blood specimen (specimen) 11/28/2014 9:52 AM EDT 11/28/2014 10:02 AM EDT Anup Hawkins MD CHEMISTRY ORDERAB LES Performing Organization Address [facility] de Phone Number [facility]USHRA HUERT[facility] [employer] * VIT D Total Evaluation (11/28/2014 9:52 AM EDT) Vitamin D Total 25 OH 35 30 - 100 ng/mL [facility] Comment: Deficient <10 ng/mL Insufficient 10 to 29 ng/mL Sufficient 30 to 100 ng/mL Potential Intoxication >100 ng/mL According to the [place] National Osteoporosis Foundation, Vitamin D concentrations >30 ng/mL are sufficient to protect bone health. ??The National Kidney Foundation has similarly stated that patients with Vitamin D concentrations <30ng/mL should be considered to be insufficient or deficient. http://[employer]/[facility]MANnatlkidneyfoundation http://[employer]/[facility] NORMANVitD The IDS iSYS Vitamin D Immunoassay detects both 25-OH Vitamin D2 and 25-OH Vitamin D3, but only a total Vitamin D concentration is reported. Blood specimen (specimen) 11/28/2014 9:52 AM EDT 11/28/2014 10:02 AM EDT Narrative Resulting Agency Comment Spec In Lab Anup Hawkins MD CHEMISTRY ORDERAB LES Performing Organization Address [facility]/ZIP Co de Phone Number [facility] * 1,25-dihydroxycholecalciferol (11/28/2014 9:52 AM EDT) Pathologist [facility] Vit D 1,25 Dihydroxy (NOVEMBER) 42 18 - 64 pg/mL [facility] Comment: Test Performed by: [place] [address] Wire Spinner: Swapnil Torres II, M.D., Ph.D. Blood specimen (specimen) 11/28/2014 9:52 AM EDT 11/28/2014 11:04 AM EDT Narrative Resulting Agency Comment Spec In Lab Anup Hawkins MD LAB SEND OUT RYAN CALERO Performing Organization Address [facility]/ZIP Co de Phone Number [facility] * PTH (11/28/2014 9:52 AM EDT) Pathologist [facility] Parathyroid Hormone 64 15 - 65 pg/mL [facility] Blood specimen (specimen) 11/28/2014 9:52 AM EDT 11/28/2014 10:02 AM EDT Narrative Resulting Agency Comment Spec In Lab Anup Hawkins MD CHEMISTRY ORDERAB LES [facility] * Tacrolimus level (11/28/2014 9:52 AM EDT) Tacrolimus 4.3 ng/mL [facility] Comment:Trough therapeutic: 5-15 ng/mL Blood specimen (specimen) 11/28/2014 9:52 AM EDT 11/28/2014 12:02 PM EDT Narrative Resulting Agency Comment Spec In Lab Anup Hawkins MD CHEMISTRY ORDERAB LES Performing Organization Address [facility] Co de Phone Number [facility] * Uric acid (11/28/2014 9:52 AM EDT) Uric Acid 4.9 3.5 - 8.5 mg/dL [facility] Blood specimen (specimen) 11/28/2014 9:52 AM EDT 11/28/2014 10:02 AM EDT Narrative Resulting Agency Comment Spec In Lab Anup Hawkins MD CHEMISTRY ORDERAB LES Performing Organization Address [facility] Co de Phone Number [facility] * Phosphorus (11/28/2014 9:52 AM EDT) Phosphorus 3.7 2.5 - 4.5 mg/dL [facility] Blood specimen (specimen) 11/28/2014 9:52 AM EDT 11/28/2014 10:02 AM EDT Narrative Resulting Agency Comment Spec In Lab Anup Hawkins MD CHEMISTRY ORDERAB LES Performing Organization Address [facility] Co de Phone Number [facility] * Magnesium (11/28/2014 9:52 AM EDT) Magnesium 0.78 0.69 - 1.07 mmol/L [facility] Blood specimen (specimen) 11/28/2014 9:52 AM EDT 11/28/2014 10:02 AM EDT Narrative Resulting Agency Comment Spec In Lab Aunp Hawkins MD CHEMISTRY ORDERAB LES [facility] * (ABNORMAL) Lipid panel (fasting) (11/28/2014 9:52 AM EDT) Cholesterol, Total 90 <=199 mg/dL [facility] Comment: Recommendations of the NCEP Adult Treatment Panel for the following risk cutoff thresholds for the [place] population: Desirable: <200 mg/dL Borderline High: 200-239 mg/dL High: > or = 240 mg/dL Triglyceride 117 <=149 mg/dL [facility] Comment: Reference Range: Normal triglycerides: ??<150 mg/dL Borderline high: ??150-199 mg/dL High: ??200-499 mg/dL Very high: ??>ar=756 mg/dL RAYMOND 2001; 285(19):7345-3444 HDL Cholesterol 21(L) >=40 mg/dL [facility] Comment: Reference range: ??Low HDL: ?? < 40 mg/dL ??Normal: ?40-60 mg/dL ??Desirable: > 60 mg/dL RAYMOND 2001; 285(19):8460-3655 LDL Cholesterol 46 <=99 mg/dL [facility] Comment: Reference range: ?? Optimal: ?<100 mg/dL ?? Near Optimal/Above Optimal: ?? 100-129 mg/dL ?? Borderline high: ?130-159 mg/dL ?? High: ? 160-189 mg/dL ?? Very high: ?>jp=638 mg/dL RAYMOND 2001: 285(19):6068-8669 Cholesterol/HDL Ratio 4.3 ratio CERNER MILLENNIUM Comment: A Cholesterol to HDL ratio below 4:1 is desirable. ??Studies suggest that increased CAD risk occurs at ratios above 5 for females and above 6 for men. ? [place] Heart Association ??(http://www.americanheart.org) ? Marizol Int Med, 1994; 121:641 ? AM J Med, 1998; 105(1A):48S Blood specimen (specimen) 11/28/2014 9:52 AM EDT 11/28/2014 10:02 AM EDT Narrative Resulting Agency Comment Spec In Lab Anup Hawkins MD CHEMISTRY ORDERAB LES Performing Organization Address [facility] Co de Phone Number CERNER BRADLEYENNIUM * [...] Organization Address [facility]/ZIP Co de Phone Number CERNER MILLENNIUM [...] of Diabetes Mellitus, Position Statement from the [place] Diabetes Association. ??Diabetes Care, Volume 33, Supplement 1, Jul 2009 Blood Urea Nitrogen 42(H) 10 - 20 mg/dL [facility]ERNER MILLENNIUM Creatinine 2.21(H) 0.80 - 1.50 mg/dL [facility]ERNER MILLENNIUM Comment: Please note that the pediatric reference intervals supplied above were not validated at [facility]. Results from pediatric patients should be interpreted [...] the following links into your internet browser. [email or web address]/DHnkdep [email or web address]://[place]/DHMCnkf Blood specimen (specimen) 11/28/2014 9:52 AM EDT 11/28/2014 10:02 AM EDT Narrative Resulting Agency Comment Spec In Lab Anup Hawkins MD CHEMISTRY ORDERAB LES Performing Organization Address [facility] de Phone Number CERSHANNAN Exagen DiagnosticsENNIUM * (ABNORMAL) Protein/Creatinine Ratio, urine (11/28/2014 9:51 AM EDT) Creatinine, Urine 97 mg/dL CERNER MILLENNIUM Protein, Urine 53(H) 0 - 12 mg/dL CERNER MILLENNIUM Protein / Creatinine Ratio, Urine 0.5 ratio CERNER MILLENNIUM Urine specimen (specimen) 11/28/2014 9:51 AM EDT 11/28/2014 10:10 AM EDT Narrative Resulting Agency Comment Spec In Lab Anup Hawkins MD URINE ORDERABLES Performing Organization Address [facility] de Phone Number CERSHANNAN MILLENNIUM * Phosphorus, urine, random (11/28/2014 9:51 AM EDT) Phosphorus, Urine 46.7 mg/dL CERNER MILLENNIUM Urine specimen (specimen) 11/28/2014 9:51 AM EDT 11/28/2014 10:10 AM EDT Narrative Resulting Agency Comment Spec In Lab Anup Hawkins MD URINE ORDERABLES Performing Organization Address [facility] Phone Number CERSHANNAN MILLENNIUM * Calcium Creatinine Ratio, random urine [...] Urine Dipstick Clear Clear CERNER MILLENNIUM Specific [place] Urine Automated 1.015 1.002 - 1.030 CERNER MILLENNIUM Color, Urine Dipstick Yellow Yellow CERNER MILLENNIUM RBC, Urine 1 0 - 3 /HPF CERNER MILLENNIUM WBC, Urine <1 0 - 3 /HPF CERNER MILLENNIUM Urine specimen (specimen) 11/28/2014 9:51 AM EDT 11/28/2014 10:10 AM EDT Narrative Resulting Agency Comment Spec In Lab Anup Hawkins MD URINE ORDERABLES Performing Organization Address [facility] Co de Phone Number CERSHANNAN SIMONIUM * U24 Hrs and Volume (11/28/2014 7:00 AM EDT) Hours Collected 24 hour(s) CERSHANNAN HUERTAENNIUM Total Volume 1,650 mL CERNER BRADLEYENNIUM Urine specimen (specimen) 11/28/2014 7:00 AM EDT 11/28/2014 11:50 AM EDT Narrative Resulting Agency Comment Spec In Lab Anup Hawkins MD CHEMISTRY ORDERAB LES Performing Organization Address [facility] de Phone Number BUSHRA SIMONIUM * (ABNORMAL) Uric acid, urine, 24 hour (11/28/2014 7:00 AM EDT) U24 Uric Conc 12.5 mg/dL CERNER MILLENNIUM Uric Acid, 24 Hour Urine 0.21(L) 0.25 - 0.80 gm/24hr CERNER MILLENNIUM Urine specimen (specimen) 11/28/2014 7:00 AM EDT 11/28/2014 11:50 AM EDT Narrative Resulting Agency Comment Spec In Lab Anup Hawkins MD URINE ORDERABLES Performing Organization Address [facility] de Phone Number BUSHRA SIMONIUM * Phosphorus, urine, 24 hour (11/28/2014 7:00 AM EDT) Phosphorus Concentration, U24 47.3 mg/dL CERNER MILLENNIUM Phosphorus, 24 Hour Urine 0.8 0.4 - 1.3 gm/24hr CERNER MILLENNIUM Urine specimen (specimen) 11/28/2014 7:00 AM EDT 11/28/2014 11:50 AM EDT Narrative Resulting Agency Comment Spec In Lab Anup Hawkins MD URINE ORDERABLES Performing Organization Address [facility]/ZIP Co de Phone Number BUSHRA SIMONIUM * [...] Hawkins MD URINE ORDERABLES Performing Organization Address City/[facility] Co de Phone Number CERSHANNAN MILLENNIUM * [...] (severe) documented in this encounter Care Teams Gauger Chief Delivery Relationship Specialty Start Date End Date Carroll Fuentes DO [address] [place] [address] PCP - General 09/23/11 10/20/22 documented as of this encounter
--- OUTSIDE RECORDS SUMMARY | 2024-05-23 13:37 | XMS_ITS | Encounter Summary ---
Author Organization [facility] Address [facility] Laura [facility] [place] [address] Care Team Providers Care Credit Operations Processor Name Role Phone AlfredoCarroll allison Primary Care Provider [phone] Encounter Details Date Type Department Care Team (Late st Contact Info) Description 11/08/2015 11:00 AM EDT Office Visit [place] [address] Stephanie Ireland MD [facility] [place] [address] A-V fistula Social History Tobacco Use Types [...] Text Report Department: Vascular Surgery Lab Patient: [id number] (ARNOL, CHRISTY) CPT: 48693 ICD10: I77.0 Referring Physician: STEPHANIE IRELAND ?? [...] acquired documented in this encounter Care Teams Credit Operations Processor Relationship Specialty Start Date End Date Carroll Fuentes DO [address] [place] [address] PCP - General 09/23/11 10/20/22 documented as of this encounter
--- OUTSIDE RECORDS SUMMARY | 2024-05-23 13:37 | XMS_ITS | Encounter Summary ---
Author Organization [facility] Address [facility] [place] [address] Care Team Providers Care Parts Facilitator Name Role Phone Carroll Fuentes DO Primary Care Provider [phone] Reason for Visit * Reason Comments Medication Refill Encounter Details Date Type Department Care Team (Late st Contact Info) Description 11/26/2014 Refill [place] [address] Anup Hawkins MD [facility] [address] [place] [address] Social History Tobacco Use Types Packs/Day Years [...] filedocumented in this encounter Care Teams Parts Facilitator Relationship Specialty Start Date End Date Carroll Fuentes DO [address] [place] [address] PCP - General 09/23/11 10/20/22 documented as of this encounter
--- OUTSIDE RECORDS SUMMARY | 2024-05-23 13:37 | XMS_ITS | Encounter Summary ---
Author Organization [facility] Address [facility] [address] Care Team Providers Care Dairy Nutrition Specialist Name Role Phone Carroll Fuentes DO Primary Care Provider [phone] Reason for Visit * Reason Onset Date Comments Medication Refill 06/12/2014 Encounter Details Date Type Department Care Team (Late st Contact Info) Description 06/12/2014 Refill [place] [address] Alfonzo Miles MD [facility] [address] Social History Tobacco Use Types Packs/Day Years [...] on filedocumented in this encounter Care Teams Dairy Nutrition Specialist Relationship Specialty Start Date End Date Carroll Fuentes DO [address] [place] [address] PCP - General 09/23/11 10/20/22 documented as of this encounter
--- OUTSIDE RECORDS SUMMARY | 2024-05-23 13:37 | XMS_ITS | Encounter Summary ---
Author Organization [facility] Address [facility] [place] [address] Care Team Providers Care Action Finisher Name Role Phone Carroll Fuentes DO Primary Care Provider [phone] Reason for Visit * Reason Comments Medication Refill Encounter Details Date Type Department Care Team (Late st Contact Info) Description 08/19/2015 [place] [address] Alfonzo Miles MD [facility] [place] [address] Social History Tobacco Use Types Packs/Day Years [...] on filedocumented in this encounter Care Teams Action Finisher Relationship Specialty Start Date End Date Carroll Fuentes DO [address] [place] [address] PCP - General 09/23/11 10/20/22 documented as of this encounter
--- OUTSIDE RECORDS SUMMARY | 2024-05-23 13:37 | XMS_ITS | Encounter Summary ---
Author Organization [facility] [place] [address] Care Team Providers Care Fire Lookout Name Role Phone AlfredoCarroll allison Primary Care Provider [phone] Encounter Details Date Type Department Care Team (Late st Contact Info) Description 09/04/2015 Telephone [place] [address] Autumn Burgos, RN Social History Tobacco Use [...] Lookout Relationship Specialty Start Date End Date Carroll Fuentes DO [address] [place] [address] PCP - General 09/23/11 10/20/22 documented as of this encounter
--- OUTSIDE RECORDS SUMMARY | 2024-05-23 13:37 | XMS_ITS | Encounter Summary ---
Author Organization [facility] Address [facility] [place] [address] Care Team Providers Care Health Sciences Manager Name Role Phone AlfredoCarroll geiger Primary Care Provider [phone] Encounter Details Date Type Department Care Team (Late st Contact Info) Description 02/21/2014 External Results [place] [address] Anand Winn I, [place] [address] Social History Tobacco Use Types Packs/Day Years [...] Procedure Name Priority Date/Time Associated Diagnosis Comments [facility] TRANSPLANT FOLLOW UP LABS EXTERNAL RESULTS PANEL Routine 02/20/2014 documented in this encounter Results * (ABNORMAL) Transplant: Follow up lab request - External Results (02/20/2014) White Blood Cell 3.87(Exter nal Lab) Hemoglobin 9.9(Waybill Clerk al Lab) 13.5 - 17.5 Hematocrit 32.5(Exter nal Lab) 41.0 - 53.0 Amylase (External Lab) Lipase (External Lab) Blood Urea Nitrogen 42(Externa l Lab) Creatinine 2.0(Waybill Clerk al Lab) Tacrolimus ABORH Type Historical Provider CHEMISTRY ORDERAB LES documented in this encounter Visit Diagnoses Not on filedocumented in this encounter Care Teams Health Sciences Manager Relationship Specialty Start Date End Date Carroll Fuentes DO [facility] [address] [facility] [address] [place] [address] PCP - General 09/23/11 10/20/22 documented as of this encounter
--- OUTSIDE RECORDS SUMMARY | 2024-05-23 13:38 | XMS_ITS | Encounter Summary ---
Author Organization [facility] Address [facility] [place] [address] Care Team Providers Care Aerospace Physiological Technician Name Role Phone AlfredoCarroll geiger Primary Care Provider [phone] Encounter Details Date Type Department Care Team (Late st Contact Info) Description 09/26/2013 External Results [place] [address] Anand Winn I, [place] [address] Social History Tobacco Use Types Packs/Day Years [...] Procedure Name Priority Date/Time Associated Diagnosis Comments [facility] TRANSPLANT FOLLOW UP LABS EXTERNAL RESULTS PANEL [...] Blood Urea Nitrogen 42(Externa l Lab) Creatinine 2.2(Ditch Digger al Lab) Tacrolimus (External Lab) ABORH Type Historical Provider CHEMISTRY ORDERAB LES documented in this encounter Visit Diagnoses Not on filedocumented in this encounter Care Teams Aerospace Physiological Technician Relationship Specialty Start Date End Date Craroll Fuentes DO [address] [place] [address] PCP - General 09/23/11 10/20/22 documented as of this encounter
--- OUTSIDE RECORDS SUMMARY | 2024-05-23 13:38 | XMS_ITS | Encounter Summary ---
Author Organization [facility] Address [facility] [place] [address] Care Team Providers Care Disability Representative Name Role Phone AlfredoCarroll allison Primary Care Provider Encounter Details Date Type Department Care Team (Latest Contact Info) Description 08/22/2013 8:46 PM EST - 08/22/2013 11:59 PM [facility] Hospital [place] [address] Anup Hawkins MD [facility] [place] [address] Discharge Disposition: Home Social History Tobacco Use [...] on filedocumented in this encounter Care Teams Disability Representative Relationship Specialty Start Date End Date Carroll Fuentes DO [address] [place] [address] PCP - General 09/23/11 10/20/22 documented as of this encounter
--- OUTSIDE RECORDS SUMMARY | 2024-05-23 13:38 | XMS_ITS | Encounter Summary ---
Author Organization [facility] Address [facility] [place] [address] Care Team Providers Care Plant Operator Control Room Operator Name Role Phone AlfredoCarroll allison Primary Care Provider [phone] Encounter Details Date Type Department Care Team (Latest Contact Info) Description 02/21/2013 8:24 PM EDT - 02/21/2013 11:59 PM EDT Hospital [place] [address] Anup Hawkins MD [facility] [place] [address] Discharge Disposition: Home Social History Tobacco Use [...] 10:40 AM EDT) Tacrolimus 3.5 ng/mL [facility] Comment:Trough therapeutic: 5-15 ng/mL Blood specimen (specimen) 02/21/2013 10:40 AM EDT 02/22/2013 8:07 AM EDT Narrative Resulting Agency Comment Spec In Lab Anup Hawkins MD CHEMISTRY ORDERAB LES Performing Organization Address City/State/[facility] Co mt Phone Number [facility] documented in this encounter Visit Diagnoses Not on filedocumented in this encounter Care Teams Plant Operator Control Room Operator Relationship Specialty Start Date End Date Carroll Fuentes DO [address] [place] [address] PCP - General 09/23/11 10/20/22 documented as of this encounter
--- OUTSIDE RECORDS SUMMARY | 2024-05-23 13:38 | XMS_ITS | Encounter Summary ---
Author Organization [facility] Address [facility] [place] [address] Care Team Providers Care Mortgage Loan Officer Originator Name Role Phone AlfredoCarroll allison Primary Care Provider [phone] Encounter Details Date Type Department Care Team (Latest Contact Info) Description 10/23/2013 8:40 PM EDT - 10/23/2013 11:59 PM EDT Hospital [place] [address] Anup Hawkins MD [facility] [place] [address] Discharge Disposition: Home Social History Tobacco Use [...] Anup Hawkins MD CHEMISTRY ORDERAB LES [facility] documented in this encounter Visit Diagnoses Not on filedocumented in this encounter Care Teams Mortgage Loan Officer Originator Relationship Specialty Start Date End Date Carroll Fuentes DO [address] [place] [address] PCP - General 09/23/11 10/20/22 documented as of this encounter
--- OUTSIDE RECORDS SUMMARY | 2024-05-23 13:38 | XMS_ITS | Encounter Summary ---
Author Organization [facility] [place] [address] Care Team Providers Care Sales Manager Prearranged Funerals Name Role Phone Carroll Fuentes DO Primary Care Provider Reason for Visit * Reason Comments Medication Refill Encounter Details Date Type Department Care Team (Late st Contact Info) Description 07/03/2013 [place] [address] Anup Hawkins MD [facility] [place] [address] Social History Tobacco Use Types Packs/Day Years [...] filedocumented in this encounter Care Teams Sales Manager Prearranged Funerals Relationship Specialty Start Date End Date Carroll Fuentes DO [address] [place] [address] PCP - General 09/23/11 10/20/22 documented as of this encounter
--- OUTSIDE RECORDS SUMMARY | 2024-05-23 13:38 | XMS_ITS | Encounter Summary ---
Author Organization [facility] Address [facility] [place] [address] Care Team Providers Care Certified Physician'S Assistant Name Role Phone AlfredoCarroll allison Primary Care Provider Encounter Details Date Type Department Care Team (Latest Contact Info) Description 03/27/2013 8:32 PM EDT - 03/27/2013 11:59 PM EDT Hospital [place] [address] Anup Hawkins MD [facility] [place] [address] Discharge Disposition: Home Social History Tobacco Use [...] AM EDT) Tacrolimus 3.9 ng/mL [facility] Comment:Trough therapeutic: 5-15 ng/mL Blood specimen (specimen) 03/27/2013 9:20 AM EDT 03/28/2013 8:07 AM EDT Narrative Resulting Agency Comment Spec In Lab Anup Hawkins MD CHEMISTRY ORDERAB LES Performing Organization Address City/State/[facility] Co wv Phone Number [facility] documented in this encounter Visit Diagnoses Not on filedocumented in this encounter Care Teams Certified Physician'S Assistant Relationship Specialty Start Date End Date Carroll Fuentes DO [address] [place] [address] PCP - General 09/23/11 10/20/22 documented as of this encounter
--- OUTSIDE RECORDS SUMMARY | 2024-05-23 13:38 | XMS_ITS | Encounter Summary ---
Author Organization [facility] Address [facility] [place] [address] Care Team Providers Care Plastic Fabricator Name Role Phone Carroll Fuentes DO Primary Care Provider [phone] Reason for Visit * Reason Onset Date Comments Medication Refill 06/15/2013 Encounter Details Date Type Department Care Team (Late st Contact Info) Description 06/15/2013 Refill [place] [address] Anup Hawkins MD [facility] [place] [address] High level of uric acid in blood [...] chemistry documented in this encounter Care Teams Plastic Fabricator Relationship Specialty Start Date End Date Carroll Fuentes DO [address] [place] [address] PCP - General 09/23/11 10/20/22 documented as of this encounter
--- OUTSIDE RECORDS SUMMARY | 2024-05-23 13:38 | XMS_ITS | Encounter Summary ---
Author Organization [facility] Address [facility] [place] [address] Care Team Providers Care Oil Heat Technician Name Role Phone AlfredoCarroll geiger Primary Care Provider [phone] Encounter Details Date Type Department Care Team (Late st Contact Info) Description 10/24/2013 External Results [place] [address] Anand Winn I, [place] [address] Social History Tobacco Use Types Packs/Day Years [...] Procedure Name Priority Date/Time Associated Diagnosis Comments [facility] TRANSPLANT FOLLOW UP LABS EXTERNAL RESULTS [...] Blood Urea Nitrogen 42(Externa l Lab) Creatinine 2.1(Curriculum Development Specialist al Lab) Tacrolimus (External Lab) ABORH Type Historical Provider CHEMISTRY ORDERAB LES documented in this encounter Visit Diagnoses Not on filedocumented in this encounter Care Teams Oil Heat Technician Relationship Specialty Start Date End Date Carroll Fuentes DO [address] [place] [address] PCP - General 09/23/11 10/20/22 documented as of this encounter
--- OUTSIDE RECORDS SUMMARY | 2024-05-23 13:38 | XMS_ITS | Encounter Summary ---
Author Organization [facility] Address [facility] [place] [address] Care Team Providers Care Brake Repairer Air Name Role Phone Carroll Fuentes DO Primary Care Provider [phone] Reason for Visit * Reason Comments Skin Check MULTIPLE NEVI/VARIOU S SHAPES AND COLORS Encounter Details Date Type Department Care Team (Late st Contact Info) Description 04/18/2013 1:00 PM EDT Office Visit Dermatology at [facility] [address] [place] [address] CLINIC, DR LAXMI Dickerson, Damián Ventura MD [facility] [address] AK (actinic keratosis) (Primary Dx); Actinic skin [...] on the left neck, left and right nondenominational area ASSESSMENT/PLAN: A.Rosacea (Acne rosacea) I discussed [...] encounter. Damián Dickerson MD Section of Dermatology [facility] documented in this encounter Plan of Treatment Not on file documented as of this encounter Visit Diagnoses Diagnosis AK (actinic keratosis)- Primary Actinic keratosis Actinic skin damage Other chronic dermatitis due to solar radiation Rosacea Multiple benign nevi Benign neoplasm of skin, site unspecified documented in this encounter Care Teams Brake Repairer Air Relationship Specialty Start Date End Date Carroll Fuentes DO [address] [place] [address] PCP - General 09/23/11 10/20/22 documented as of this encounter
--- OUTSIDE RECORDS SUMMARY | 2024-05-23 13:38 | XMS_ITS | Encounter Summary ---
Author Organization [facility] Address [facility] [place] [place] [address] Care Team Providers Care Mercerizer Name Role Phone AlfredoCarroll geiger Primary Care Provider [phone] Encounter Details Date Type Department Care Team (Late st Contact Info) Description 09/20/2013 External Results [place] [address] Anand Winn I, [place] [address] Social History Tobacco Use Types Packs/Day Years [...] Procedure Name Priority Date/Time Associated Diagnosis Comments [facility] TRANSPLANT FOLLOW UP LABS EXTERNAL RESULTS [...] Blood Urea Nitrogen 36(Externa l Lab) Creatinine 2.0(Card Lacer Jacquard al Lab) Tacrolimus (External Lab) ABORH Type Historical Provider CHEMISTRY ORDERAB LES documented in this encounter Visit Diagnoses Not on filedocumented in this encounter Care Teams Mercerizer Relationship Specialty Start Date End Date Carroll Fuentes DO [address] [place] [address] PCP - General 09/23/11 10/20/22 documented as of this encounter
--- OUTSIDE RECORDS SUMMARY | 2024-05-23 13:38 | XMS_ITS | Encounter Summary ---
Author Organization [facility] Address [facility] [place] [address] Care Team Providers Care Superintendent Water And Sewer Systems Name Role Phone Carroll Fuentes DO Primary Care Provider [phone] Reason for Visit * Reason Comments Medication Refill Encounter Details Date Type Department Care Team (Late st Contact Info) Description 02/07/2013 Refill [place] [address] Anup Hawkins MD [facility] [place] [address] HTN (hypertension) (Primary Dx) Social History Tobacco [...] hypertension documented in this encounter Care Teams Superintendent Water And Sewer Systems Relationship Specialty Start Date End Date Carroll Fuentes DO [address] [place] [address] PCP - General 09/23/11 10/20/22 documented as of this encounter
--- OUTSIDE RECORDS SUMMARY | 2024-05-23 13:38 | XMS_ITS | Encounter Summary ---
Author Organization [facility] Address [facility] [place] [address] Care Team Providers Care Clay Artist Name Role Phone Carroll Fuentes DO Primary Care Provider Reason for Visit * Reason Onset Date Comments Medication Refill 08/11/2013 Encounter Details Date Type Department Care Team (Late st Contact Info) Description 08/11/2013 Refill [place] [address] Anup Hawkins MD [facility] [place] [address] HTN (hypertension) (Primary Dx) Social History Tobacco [...] hypertension documented in this encounter Care Teams Clay Artist Relationship Specialty Start Date End Date Carroll Fuentes DO [address] [place], [place] [address] PCP - General 09/23/11 10/20/22 documented as of this encounter
--- OUTSIDE RECORDS SUMMARY | 2024-05-23 13:38 | XMS_ITS | Encounter Summary ---
Author Organization [facility] Address [facility] [place] [address] Care Team Providers Care Insulating Machine Operator Name Role Phone AlfredoCarroll geiger Primary Care Provider [phone] Encounter Details Date Type Department Care Team (Late st Contact Info) Description 08/24/2013 External Results [place] [address] Anand Winn I, [place] [address] Social History Tobacco Use Types Packs/Day Years [...] Procedure Name Priority Date/Time Associated Diagnosis Comments [facility] TRANSPLANT FOLLOW UP LABS EXTERNAL [...] on filedocumented in this encounter Care Teams Insulating Machine Operator Relationship Specialty Start Date End Date Carroll Fuentes DO [address] [facility] [address] [place] [address] PCP - General 09/23/11 10/20/22 documented as of this encounter
--- OUTSIDE RECORDS SUMMARY | 2024-05-23 13:38 | XMS_ITS | Encounter Summary ---
Author Organization [facility] [place] [address] Care Team Providers Care Mud Jack Nozzleman Name Role Phone Carroll Fuentes DO Primary Care Provider Encounter Details Date Type Department Care Team (Late st Contact Info) Description 02/17/2013 Orders Only [place] [address] Camilo Ireland MD [facility] [address] Social History Tobacco Use Types Packs/Day Years [...] on filedocumented in this encounter Care Teams Mud Jack Nozzleman Relationship Specialty Start Date End Date Carroll Fuentes DO [address] [place] [address] PCP - General 09/23/11 10/20/22 documented as of this encounter
--- OUTSIDE RECORDS SUMMARY | 2024-05-23 13:38 | XMS_ITS | Encounter Summary ---
Author Organization [facility] Address [facility] [place] [address] Care Team Providers Care Talent Development Analyst Name Role Phone AlfredoCarroll allison Primary Care Provider [phone] Reason for Visit * Reason Comments Rosacea Encounter Details Date Type Department Care Team (Late st Contact Info) Description 09/05/2013 9:30 AM EST Office Visit Dermatology at [address] [id number] Bashir Benitez MD [address] [place] [address], [facility] [place] [address] Acne rosacea (Primary Dx); Nevus Social History [...] of adequate control. 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 He says that hot, spicy foods do not tend to exacerbate his rosacea. He does have [place] ethnic descent and does flush and blush [...] unspecified documented in this encounter Care Teams Talent Development Analyst Relationship Specialty Start Date End Date Carroll Fuentes DO [address] [place] [address] [address] [place] [address] PCP - General 09/23/11 10/20/22 documented as of this encounter
--- OUTSIDE RECORDS SUMMARY | 2024-05-23 13:38 | XMS_ITS | Encounter Summary ---
Author Organization [facility] [place] [address] Care Team Providers Care Anode Builder Name Role Phone AlfredoCarroll allison Primary Care Provider [phone] Reason for Visit * Reason Onset Date Comments Other 05/11/2013 [employer] Appl for Prograf, Rx form to Encounter Details Date Type Department Care Team (Late st Contact Info) Description 05/11/2013 [place] [address] Nanda Tao Other (MAP-Online Appl for Prograf, [...] Prograf, Rx form to Dr Suarez called dAama-collected annual appl info. Completed online annual enrollment for Mr. Ram for Prograf. Sent Rx form to Rashawn Saxena for Dr. Hawkins to sign, date and fax to [email or web address] documented in this encounter Plan of Treatment Not on file documented as of this encounter Visit Diagnoses Not on filedocumented in this encounter Care Teams Anode Builder Relationship Specialty Start Date End Date Carroll Fuentes DO [address] [place] [address] PCP - General 09/23/11 10/20/22 documented as of this encounter
--- OUTSIDE RECORDS SUMMARY | 2024-05-23 13:38 | XMS_ITS | Encounter Summary ---
Author Organization [facility] Address [facility] [place] [address] Care Team Providers Care Cook Taco Name Role Phone AlfredoCarroll geiger Primary Care Provider [phone] Encounter Details Date Type Department Care Team (Late st Contact Info) Description 07/26/2013 External Results [place] [address] Anand Winn I, [place] [address] Social History Tobacco Use Types Packs/Day Years [...] Procedure Name Priority Date/Time Associated Diagnosis Comments [facility] TRANSPLANT FOLLOW UP LABS EXTERNAL RESULTS [...] filedocumented in this encounter Care Teams Cook Taco Relationship Specialty Start Date End Date Carroll Fuentes DO [address] [facility] [place] [address] PCP - General 09/23/11 10/20/22 documented as of this encounter
--- OUTSIDE RECORDS SUMMARY | 2024-05-23 13:38 | XMS_ITS | Encounter Summary ---
Author Organization [facility] Address [facility] [place] [address] Care Team Providers Care Hydraulic Miner Blasting Name Role Phone AlfredoCarroll allison Primary Care Provider Encounter Details Date Type Department Care Team (Latest Contact Info) Description 06/22/2013 8:39 PM EST - 06/22/2013 11:59 PM [facility] Hospital [place] [address] Anup Hawkins MD [facility] [place] [address] Discharge Disposition: Home Social History Tobacco Use [...] MD HEMATOLOGY ORDERA BLES Performing Organization Address City/[facility] Co de Phone Number [facility] * Tacrolimus level (06/22/2013 9:23 AM EST) Tacrolimus 3.6 ng/mL [facility] Comment:Trough therapeutic: 5-15 ng/mL Blood specimen (specimen) 06/22/2013 9:23 AM EST 06/23/2013 8:23 AM EST Narrative Resulting Agency Comment Spec In Lab Anup Hawkins MD CHEMISTRY ORDERAB LES Performing Organization Address [facility] Co de Phone Number [facility] documented in this encounter Visit Diagnoses Not on filedocumented in this encounter Care Teams Hydraulic Miner Blasting Relationship Specialty Start Date End Date Carroll Fuentes DO [address] [place] [address] PCP - General 09/23/11 10/20/22 documented as of this encounter
--- OUTSIDE RECORDS SUMMARY | 2024-05-23 13:38 | XMS_ITS | Encounter Summary ---
Author Organization [facility] Address [facility] [place] [address] Care Team Providers Care Produce Specialist Name Role Phone AlfredoCarroll allison Primary Care Provider [phone] Reason for Visit * Reason Comments Other Encounter Details Date Type Department Care Team (Late st Contact Info) Description 04/25/2013 Telephone [place] [address] Janeth Nixon, RN Social History Tobacco Use [...] call. Thanks Laurie 04/25/13 @ 11:25 A.M. patient services coordinator note: After conferring with Dr. Hawkins regarding patient's question, I advised Adama that he can take Metronidazole cream post transplant. Most creams are not absorbed systemically so they are safe post transplant. documented in this encounter Plan of Treatment Not on file documented as of this encounter Visit Diagnoses Not on filedocumented in this encounter Care Teams Produce Specialist Relationship Specialty Start Date End Date Carroll Fuentes DO [address] [place] [address] PCP - General 09/23/11 10/20/22 documented as of this encounter
--- OUTSIDE RECORDS SUMMARY | 2024-05-23 13:38 | XMS_ITS | Encounter Summary ---
Author Organization [facility] Address [facility] [place] [address] Care Team Providers Care Photo Printer Name Role Phone Carroll Fuentes DO Primary Care Provider [phone] Reason for Visit * Reason Comments Follow-up nevus Encounter Details Date Type Department Care Team (Late st Contact Info) Description 05/23/2013 9:30 AM EST Follow-Up Dermatology at [facility] [address] [place] [address] CLINIC, DR LAXMI Dickerson, Damián Ventura MD [facility] [place] [address] Rosacea (Primary Dx); Seborrheic keratosis Discharge Disposition: [...] encounter. Damián Dickerson MD Section of Dermatology [facility] documented in this encounter Plan of Treatment Not on file documented as of this encounter Visit Diagnoses Diagnosis Rosacea- Primary Seborrheic keratosis Other seborrheic keratosis documented in this encounter Care Teams Photo Printer Relationship Specialty Start Date End Date Carroll Fuentes DO [address] [place] [address] PCP - General 09/23/11 10/20/22 documented as of this encounter
--- OUTSIDE RECORDS SUMMARY | 2024-05-23 13:38 | XMS_ITS | Encounter Summary ---
Author Organization [facility] Address [facility] [place] [address] Care Team Providers Care Liver Trimmer Name Role Phone AlfredoCarroll allison Primary Care Provider [phone] Reason for Visit * Reason Onset Date Comments Medication Refill 08/14/2013 Encounter Details Date Type Department Care Team (Late st Contact Info) Description 08/14/2013 Refill Dermatology at [facility] [address] [place] [address] Rock Khan III, MD [facility] [place] [address] Rosacea (Primary Dx) Social History Tobacco Use [...] Primary documented in this encounter Care Teams Liver Trimmer Relationship Specialty Start Date End Date Carroll Fuentes DO [address] [place] [address] PCP - General 09/23/11 10/20/22 documented as of this encounter
--- OUTSIDE RECORDS SUMMARY | 2024-05-23 13:38 | XMS_ITS | Encounter Summary ---
Author Organization [facility] [place] [address] Care Team Providers Care Jeep Mechanic Name Role Phone AlfredoCarroll allison Primary Care Provider [phone] Reason for Visit * Reason Onset Date Comments Other 03/21/2013 MAP-Quick Start for Prograf Encounter Details Date Type Department Care Team (Late st Contact Info) Description 03/21/2013 [place] [id number] Nanda Tao Other (MAP-Quick Start for Prograf) [...] Dr. Hawkins to sign and fax to [employer]. Advised Adama we need copy of income doc to complete annual [email or web address] documented in this encounter Plan of Treatment Not on file documented as of this encounter Visit Diagnoses Not on filedocumented in this encounter Care Teams Jeep Mechanic Relationship Specialty Start Date End Date Carroll Fuentes DO [address] [place] [address] PCP - General 09/23/11 10/20/22 documented as of this encounter
--- OUTSIDE RECORDS SUMMARY | 2024-05-23 13:38 | XMS_ITS | Encounter Summary ---
Author Organization [facility] Address [facility] [place] [address] Care Team Providers Care Race And Sports Book Writer Name Role Phone Carroll Fuentes DO Primary Care Provider Reason for Visit * Reason Onset Date Comments Medication Refill 03/22/2013 Encounter Details Date Type Department Care Team (Late st Contact Info) Description 03/22/2013 Refill [place] [address] Anup Hawkins MD [facility] TRANSPLANT [place] [address] Transplanted kidney (Primary Dx) Social History Tobacco [...] transplant documented in this encounter Care Teams Race And Sports Book Writer Relationship Specialty Start Date End Date Carroll Fuentes DO [address] [place], [place] [address] PCP - General 09/23/11 10/20/22 documented as of this encounter
--- OUTSIDE RECORDS SUMMARY | 2024-05-23 13:38 | XMS_ITS | Encounter Summary ---
Author Organization [facility] Address [facility] [place] [address] Care Team Providers Care Educational Fundraising Director Name Role Phone AlfredoCarroll allison Primary Care Provider [phone] Encounter Details Date Type Department Care Team (Late st Contact Info) Description 07/25/2013 Orders Only [place] [address] Anup Hawkins MD [facility] [place] [address] Social History Tobacco Use Types Packs/Day Years [...] 8:00 PM EST) Tacrolimus <3.0 ng/mL [facility] Comment:Trough therapeutic: 5-15 ng/mL Blood specimen (specimen) 07/25/2013 8:00 PM EST 07/26/2013 8:06 AM EST Narrative Resulting Agency Comment Spec In Lab Anup Hawkins MD CHEMISTRY ORDERAB LES Performing Organization Address City/State/[facility] Co de Phone Number [facility] documented in this encounter Visit Diagnoses Not on filedocumented in this encounter Care Teams Educational Fundraising Director Relationship Specialty Start Date End Date Carroll Fuentes DO [address] [place] [address] PCP - General 09/23/11 10/20/22 documented as of this encounter
--- OUTSIDE RECORDS SUMMARY | 2024-05-23 13:38 | XMS_ITS | Encounter Summary ---
Author Organization [facility] Address [facility] [place] [address] Care Team Providers Care Toaster Element Repairer Name Role Phone AlfredoCarroll geiger Primary Care Provider [phone] Encounter Details Date Type Department Care Team (Late st Contact Info) Description 06/23/2013 External Results [place] [address] Anand Winn I, [place] [address] Social History Tobacco Use Types Packs/Day Years [...] Procedure Name Priority Date/Time Associated Diagnosis Comments [facility] TRANSPLANT FOLLOW UP LABS EXTERNAL [...] on filedocumented in this encounter Care Teams Toaster Element Repairer Relationship Specialty Start Date End Date Carroll Fuentes DO [address] [facility] [address] [place] [address] PCP - General 09/23/11 10/20/22 documented as of this encounter
--- OUTSIDE RECORDS SUMMARY | 2024-05-23 13:38 | XMS_ITS | Encounter Summary ---
Author Organization [facility] Address [facility] [place] [address] Care Team Providers Care Automobile Taillight Assembler Name Role Phone Carroll Fuentes DO Primary Care Provider [phone] Reason for Visit * Reason Onset Date Comments Medication Refill 11/24/2013 Encounter Details Date Type Department Care Team (Late st Contact Info) Description 11/24/2013 Refill [place] [address] Anup Hawkins MD [facility] [address] [place] [address] High level of uric acid in blood [...] chemistry documented in this encounter Care Teams Automobile Taillight Assembler Relationship Specialty Start Date End Date Carroll Fuentes DO [address] [place] [address] PCP - General 09/23/11 10/20/22 documented as of this encounter
--- OUTSIDE RECORDS SUMMARY | 2024-05-23 13:38 | XMS_ITS | Encounter Summary ---
Author Organization [facility] Address [facility] [place] [address] Care Team Providers Care Impregnator Electrolytic Capacitors Name Role Phone AlfredoCarroll allison Primary Care Provider [phone] Encounter Details Date Type Department Care Team (Latest Contact Info) Description 09/19/2013 9:14 PM EDT - 09/19/2013 11:59 PM EDT Hospital [place] [address] Anup Hawkins MD [facility] [place] [address] Discharge Disposition: Home Social History Tobacco Use [...] Anup Hawkins MD CHEMISTRY ORDERAB LES [facility] documented in this encounter Visit Diagnoses Not on filedocumented in this encounter Care Teams Impregnator Electrolytic Capacitors Relationship Specialty Start Date End Date Carroll Fuentes DO [address] [place] [address] PCP - General 09/23/11 10/20/22 documented as of this encounter
--- OUTSIDE RECORDS SUMMARY | 2024-05-23 13:38 | XMS_ITS | Encounter Summary ---
Author Organization [facility] Address [facility] [place] [address] Care Team Providers Care Slipman Name Role Phone AlfredoCarroll allison Primary Care Provider [phone] Encounter Details Date Type Department Care Team (Latest Contact Info) Description 07/25/2013 11:43 AM [facility] - 07/25/2013 11:59 PM [facility] Hospital [place] [address] Anup Hawkins MD [facility] [place] [address] Discharge Disposition: Home Social History Tobacco Use [...] on filedocumented in this encounter Care Teams Slipman Relationship Specialty Start Date End Date Carroll Fuentes DO [address] [place] [address] PCP - General 09/23/11 10/20/22 documented as of this encounter
--- OUTSIDE RECORDS SUMMARY | 2024-05-23 13:38 | XMS_ITS | Encounter Summary ---
Author Organization [facility] Address [facility] [place] [address] Care Team Providers Care Manufactured Buildings Supervisor Name Role Phone AlfredoCarroll allison Primary Care Provider [phone] Encounter Details Date Type Department Care Team (Late st Contact Info) Description 05/23/2013 Refill Dermatology at [facility] [address] [place] [address] Damián Dickerson MD [facility] [place] [address] Social History Tobacco Use Types Packs/Day Years [...] of bleeding. Please call the pharmacy, [facility], ([facility]). Thanks Odalis documented in this encounter Plan of Treatment Not on file documented as of this encounter Visit Diagnoses Not on filedocumented in this encounter Care Teams Manufactured Buildings Supervisor Relationship Specialty Start Date End Date Carroll Fuentes DO [address] [place] [address] PCP - General 09/23/11 10/20/22 documented as of this encounter
--- OUTSIDE RECORDS SUMMARY | 2024-05-23 13:38 | XMS_ITS | Encounter Summary ---
Author Organization [facility] Address [facility] [place] [address] Care Team Providers Care Custom Dressmaker Name Role Phone Carroll Fuentes DO Primary Care Provider [phone] Reason for Visit * Reason Comments Medication Refill Encounter Details Date Type Department Care Team (Late st Contact Info) Description 11/07/2013 [place] [address] Alfonzo Miles MD [facility] [place] [address] Social History Tobacco Use Types Packs/Day Years [...] on filedocumented in this encounter Care Teams Custom Dressmaker Relationship Specialty Start Date End Date Carroll Fuentes DO [address] [place] [address] PCP - General 09/23/11 10/20/22 documented as of this encounter
--- OUTSIDE RECORDS SUMMARY | 2024-05-23 13:38 | XMS_ITS | Encounter Summary ---
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 [...] only) Yes ??? Hepatitis C Screening (B. [id number]) ??? Pneumovax Q5 years 2012 ??? Yearly [...] EXTREMITY performed by SABRINA SANCHEZ at [facility] ? ? Exc skin malig >4cm trunk, arm, leg 04/19/2012 EXC MALIGNANT LESION, MICHAEL > 4.0CM, TRUNK performed by SABRINA SANCHEZ at [facility] No family history on file. 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 He notes no signs or symptoms [...] Urine Result (11/22/2013 10:26 AM EDT) Pathologist [facility] BKV Urine Result Not Detected [facility] BKV Urine Interp BK Virus Urine [...] DNA isolated from urine was performed using [employer] BKV(ASR) reagents and the [employer] 7500 Fast Real-Time PCR System. In addition, the PCR product sequence is confirmed using physical properties (melt curve analysis). This test was developed and its performance determined by the [facility] Molecular Pathology Laboratory. It has not been [...] Hawkins MD URINE ORDERABLES Performing Organization Address [facility] de Phone Number CERNER MILLENNIUM [...] Urine Dipstick Clear Clear CERNER MILLENNIUM Specific [place] Urine Automated 1.011 1.002 - 1.030 CERNER [...] MD HEMATOLOGY ORDERA BLES Performing Organization Address [facility] de Phone Number BUSHRA SIMONIUM * (ABNORMAL) Prothrombin Time (11/22/2013 10:21 AM EDT) Prothrombin Time 22.9(H) 12.0 - 15.0 sec CERNER MILLENNIUM Comment: [facility] Transfusion Committee Guidelines: INR less than [...] MD HEMATOLOGY ORDERA BLES Performing Organization Address [facility] de Phone Number BUSHRA DOYLE * Vitamin B12 (11/22/2013 10:21 AM EDT) Vitamin B12 283 207 - 974 pg/mL CERNER MILLENNIUM Blood specimen (specimen) 11/22/2013 10:21 AM EDT 11/22/2013 10:28 AM EDT Narrative Resulting Agency Comment Spec In Lab Anup Hawkins MD CHEMISTRY ORDERAB LES Performing Organization Address [facility] Co de Phone Number [...] Lab Anup Hawkins MD CHEMISTRY ORDERAB LES [facility] * Folate, serum (11/22/2013 10:21 AM EDT) Folate 14.3 4.6 - 34.8 ng/mL CERNER MILLENNIUM Blood specimen (specimen) 11/22/2013 10:21 AM EDT 11/22/2013 10:28 AM EDT Narrative Resulting Agency Comment Spec In Lab Anup Hawkins MD CHEMISTRY ORDERAB LES Performing Organization Address [facility]/ZIP Co de Phone Number [facility] * Ferritin (11/22/2013 10:21 AM EDT) Ferritin 242 30 - 400 ng/mL [facility] MILL[facility]NIUM Comment: Pediatric reference ranges not verified at [facility], interpret with caution. Reference ranges for females greater than 50 years of age approach values for men, i.e., 30-400 ng/mL. Blood specimen (specimen) 11/22/2013 10:21 AM EDT 11/22/2013 10:28 AM EDT Narrative Resulting Agency Comment Spec In Lab Anup Hawkins MD CHEMISTRY ORDERAB LES Performing Organization Address [facility] Co de Phone Number [facility] * (ABNORMAL) TSH (11/22/2013 10:21 AM EDT) Thyroid Stimulating Hormone 6.65(H) 0.27 - 4.20 mcIU/mL CERNER MILLENNIUM Blood specimen (specimen) 11/22/2013 10:21 AM EDT 11/22/2013 10:28 AM EDT Narrative Resulting Agency Comment Spec In Lab Anup Hawkins MD CHEMISTRY ORDERAB LES [facility] * 1,25-dihydroxycholecalciferol (11/22/2013 10:21 AM EDT) Vit D 1,25 Dihydroxy (NOVEMBER) 36 18 - 64 pg/mL [facility] Comment: Test Performed by: [address] [address] Optics Engineer: Herber Tomas III, M.D. Blood specimen (specimen) 11/22/2013 10:21 AM EDT 11/22/2013 1:30 PM EDT Narrative Resulting Agency Comment Spec In Lab Anup Hawkins MD LAB SEND OUT ORDE RABLES [facility] * VIT D Total Evaluation (11/22/2013 10:21 AM EDT) Pathologist [facility] Vitamin D Total 25 OH 34 30 - 100 ng/mL [facility] Comment: Deficient <10 ng/mL Insufficient 10 to 29 ng/mL Sufficient 30 to 100 ng/mL Potential Intoxication >100 ng/mL According to the [place] National Osteoporosis Foundation, Vitamin D concentrations >30 ng/mL are sufficient to protect bone health. ??The National Kidney Foundation has similarly stated that patients with Vitamin D concentrations <30ng/mL should be considered to be insufficient or deficient. http://ShowMe.tv/DHnatlkidneyfoundation http://ShowMe.tv/DHMCVitD The IDS iSYS Vitamin D Immunoassay detects both 25-OH Vitamin D2 and 25-OH Vitamin D3, but only a total Vitamin D concentration is reported. Blood specimen (specimen) 11/22/2013 10:21 AM EDT 11/22/2013 10:28 AM EDT Narrative Resulting Agency Comment Spec In Lab Anup Hawkins MD CHEMISTRY ORDERAB LES Performing Organization Address [facility]/ZIP Co de Phone Number [facility] * (ABNORMAL) PTH (11/22/2013 10:21 AM EDT) Pathologist [facility] Parathyroid Hormone 73(H) 15 - 65 pg/mL [facility] Blood specimen (specimen) 11/22/2013 10:21 AM EDT 11/22/2013 10:28 AM EDT Narrative Resulting Agency Comment Spec In Lab Anup Hawkins MD CHEMISTRY ORDERAB LES [facility] * Tacrolimus level (11/22/2013 10:21 AM EDT) Tacrolimus <3.0 ng/mL [facility] Comment:Trough therapeutic: 5-15 ng/mL Blood specimen (specimen) 11/22/2013 10:21 AM EDT 11/22/2013 12:08 PM EDT Narrative Resulting Agency Comment Spec In Lab Anup Hawkins MD CHEMISTRY ORDERAB LES Performing Organization Address City/[facility] Co de Phone Number [facility] * Uric acid (11/22/2013 10:21 AM EDT) Uric Acid 5.5 3.5 - 8.5 mg/dL [facility] Blood specimen (specimen) 11/22/2013 10:21 AM EDT 11/22/2013 10:28 AM EDT Narrative Resulting Agency Comment Spec In Lab Anup Hawkins MD CHEMISTRY ORDERAB LES Performing Organization Address [facility] Co de Phone Number [facility] * Phosphorus (11/22/2013 10:21 AM EDT) Phosphorus 3.6 2.5 - 4.5 mg/dL [facility] Blood specimen (specimen) 11/22/2013 10:21 AM EDT 11/22/2013 10:28 AM EDT Narrative Resulting Agency Comment Spec In Lab Anup Hawkins MD CHEMISTRY ORDERAB LES Performing Organization Address City/[facility]/ZIP Co de Phone Number [facility] * Magnesium (11/22/2013 10:21 AM EDT) Magnesium 0.72 0.69 - 1.07 mmol/L CERNER MILLENNIUM Blood specimen (specimen) 11/22/2013 10:21 AM EDT 11/22/2013 10:28 AM EDT Narrative Resulting Agency Comment Spec In Lab Anup Hawkins MD CHEMISTRY ORDERAB LES [facility] * (ABNORMAL) Lipid panel (fasting) (11/22/2013 10:21 AM EDT) Cholesterol, Total 90 <=199 mg/dL [facility] Comment: Recommendations of the NCEP Adult Treatment Panel for the following risk cutoff thresholds for the [place] population: Desirable: <200 mg/dL Borderline High: 200-239 mg/dL High: > or = 240 mg/dL Triglyceride 81 <=149 mg/dL [facility] Comment: Reference Range: Normal triglycerides: ??<150 mg/dL Borderline high: ??150-199 mg/dL High: ??200-499 mg/dL Very high: ??>qr=320 mg/dL RAYMOND 2001; 285(19):5249-2224 HDL Cholesterol 25(L) >=40 mg/dL [facility] Comment: Reference range: ??Low HDL: ?? < 40 mg/dL ??Normal: ?40-60 mg/dL ??Desirable: > 60 mg/dL R[place]MON[place] 2001; 285(19):5967-9750 LDL Cholesterol 49 <=99 mg/dL [facility] Comment: Reference range: ?? Optimal: ?<100 mg/dL ?? Near Optimal/Above Optimal: ?? 100-129 mg/dL ?? Borderline high: ?130-159 mg/dL ?? High: ? 160-189 mg/dL ?? Very high: ?>zl=657 mg/dL R[facility]MOND 2001: 285(19):7757-8956 Cholesterol/HDL Ratio 3.6 ratio CERNER MILLENNIUM Comment: A Cholesterol to HDL ratio below 4:1 is desirable. ??Studies suggest that increased CAD risk occurs at ratios above 5 for females and above 6 for men. ? [place] Heart Association ??(http://www.americanheart.org) ? Marizol Int Med, 1994; 121:641 ? AM J Med, 1998; 105(1A):48S Blood specimen (specimen) 11/22/2013 10:21 AM EDT 11/22/2013 10:28 AM EDT Narrative Resulting Agency Comment Spec In Lab Anup Hawkins MD CHEMISTRY ORDERAB LES Performing Organization Address [facility]/ZIP Co de Phone Number CERSHANNAN MILLENNIUM * [...] MD HEMATOLOGY ORDERA BLES Performing Organization Address [facility]/ZIP Co de Phone Number CERSHANNAN MILLENNIUM * [...] Anup Hawkins MD HEMATOLOGY VJ DAMON [facility] * (ABNORMAL) CMP w/fasting Glucose (11/22/2013 10:21 AM EDT) Glucose Fasting 98 65 - 99 mg/dL [facility]ILL[facility] Comment: ?Fasting* Glucose Interpretive Criteria [...] of Diabetes Mellitus, Position Statement from the [place] Diabetes Association. ??Diabetes Care, Volume 33, Supplement 1, Jul 2009 Blood Urea Nitrogen 48(H) 10 - 20 mg/dL [facility] Creatinine 2.15(H) 0.80 - 1.50 mg/dL CERNER MILLENNIUM Comment: Please note that the pediatric reference intervals supplied above were not validated at [facility]. Results from pediatric patients should be interpreted [...] hyperlipidemia documented in this encounter Care Teams Truer Pinion And Wheel Relationship Specialty Start Date End Date Carroll Fuentes DO [address] [place] [address] PCP - General 09/23/11 10/20/22 documented as of this encounter
--- OUTSIDE RECORDS SUMMARY | 2024-05-23 13:38 | XMS_ITS | Encounter Summary ---
Author Organization [facility] Address [place] [address] Care Team Providers Care Service Correspondent Name Role Phone AlfredoCarroll allison Primary Care Provider Encounter Details Date Type Department Care Team (Latest Contact Info) Description 02/15/2013 8:47 PM EDT - 02/15/2013 11:59 PM EDT [place] [address] Anup Hawkins MD [facility] [place] [address] Discharge Disposition: Home Social History Tobacco Use [...] (02/15/2013 3:15 PM EDT) Tacrolimus 3.6 ng/mL [facility] Comment:Trough therapeutic: 5-15 ng/mL Blood specimen (specimen) 02/15/2013 3:15 PM EDT 02/17/2013 8:05 AM EDT Narrative Resulting Agency Comment Spec In Lab Anup Hawkins MD CHEMISTRY ORDERAB LES [facility] documented in this encounter Visit Diagnoses Not on filedocumented in this encounter Care Teams Service Correspondent Relationship Specialty Start Date End Date Carroll Fuentes DO [address] [place] [address] PCP - General 09/23/11 10/20/22 documented as of this encounter
--- OUTSIDE RECORDS SUMMARY | 2024-05-23 13:38 | XMS_ITS | Encounter Summary ---
Author Organization [facility] [place] [address] Care Team Providers Care Field Marketing Representative Name Role Phone AlfredoCarroll allison Primary Care Provider [phone] Encounter Details Date Type Department Care Team (Latest Contact Info) Description 03/29/2013 External Results [place] [address] Erika Sweeney Transplanted kidney; Need for prophylactic [...] Procedure Name Priority Date/Time Associated Diagnosis Comments [facility] TRANSPLANT FOLLOW UP LABS EXTERNAL [...] documented in this encounter Care Teams Field Marketing Representative Relationship Specialty Start Date End Date Carroll Fuentes DO [address] [place] [address] PCP - General 09/23/11 10/20/22 documented as of this encounter
--- OUTSIDE RECORDS SUMMARY | 2024-05-23 13:38 | XMS_ITS | Encounter Summary ---
Author Organization [facility] Address [facility] [place] [address] Care Team Providers Care Carpenter Packing Name Role Phone Carroll Fuentes DO Primary Care Provider Reason for Visit * Reason Onset Date Comments Medication Refill 05/15/2013 Encounter Details Date Type Department Care Team (Late st Contact Info) Description 05/15/2013 Refill [place] [address] Anup Hawkins MD [facility] [place] [address] Transplanted kidney (Primary Dx) Social History Tobacco [...] documented in this encounter Care Teams Carpenter Packing Relationship Specialty Start Date End Date Carroll Fuentes DO [address] [place], [place] [address] PCP - General 09/23/11 10/20/22 documented as of this encounter
--- OUTSIDE RECORDS SUMMARY | 2024-05-23 13:38 | XMS_ITS | Encounter Summary ---
Author Organization [facility] [place] [address] Care Team Providers Care Stitching Machine Setter Name Role Phone AlfredoCarroll allison Primary Care Provider [phone] Encounter Details Date Type Department Care Team (Latest Contact Info) Description 02/27/2013 External Results [place] [address] Erika Sweeney Transplanted kidney; Need for prophylactic [...] Procedure Name Priority Date/Time Associated Diagnosis Comments [facility] TRANSPLANT FOLLOW UP LABS EXTERNAL RESULTS [...] immunotherapy documented in this encounter Care Teams Stitching Machine Setter Relationship Specialty Start Date End Date Carroll Fuentes DO [address] [place] [address] PCP - General 09/23/11 10/20/22 documented as of this encounter
--- OUTSIDE RECORDS SUMMARY | 2024-05-23 13:38 | XMS_ITS | Encounter Summary ---
Author Organization [facility] Address [facility] [place] [address] Care Team Providers Care Registered Private Duty Nurse Name Role Phone Carroll Fuentes DO Primary Care Provider Reason for Visit * Reason Onset Date Comments Medication Refill 08/09/2013 Encounter Details Date Type Department Care Team (Late st Contact Info) Description 08/09/2013 Refill [place] [address] Anup Hawkins MD [facility] [place] [address] S/P kidney transplant (Primary Dx) Social History [...] transplant documented in this encounter Care Teams Registered Private Duty Nurse Relationship Specialty Start Date End Date Carroll Fuentes DO [address] [place], [place] [address] PCP - General 09/23/11 10/20/22 documented as of this encounter
--- OUTSIDE RECORDS SUMMARY | 2024-05-23 13:38 | XMS_ITS | Encounter Summary ---
Author Organization [facility] Address [facility] [place] [address] Care Team Providers Care Kitchen Bath Designer Name Role Phone AlfredoCarroll allison Primary Care Provider Encounter Details Date Type Department Care Team (Latest Contact Info) Description 09/26/2013 7:51 PM EDT - 09/26/2013 11:59 PM EDT Hospital [place] [address] Anup Hawkins MD [facility] [place] [address] Discharge Disposition: Home Social History Tobacco Use [...] Anup Hawkins MD CHEMISTRY [facility]AB LES [facility] documented in this encounter Visit Diagnoses Not on filedocumented in this encounter Care Teams Kitchen Bath Designer Relationship Specialty Start Date End Date Carroll Fuentes DO [address] [place] [address] PCP - General 09/23/11 10/20/22 documented as of this encounter
--- OUTSIDE RECORDS SUMMARY | 2024-05-23 13:38 | XMS_ITS | Encounter Summary ---
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 [...] virus only) ??? Hepatitis C Screening (B. [id number]) ??? Pneumovax Q5 years (given today) ??? [...] at [facility] OR ? ? 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 de Phone Number [facility] * CMV Antibody, IgM (05/23/2013 7:45 AM EST) CMV IgM Neg Neg [facility] Blood specimen (specimen) 05/23/2013 7:45 AM EST 05/24/2013 8:46 AM EST Narrative Resulting Agency Comment Spec In Lab Anup Hawkins MD IMMUNOLOGY ORDERA BLES [facility] * CMV Antibody, IgG (05/23/2013 7:45 AM EST) CMV IgG Neg Neg CERNER MILLENNIUM Blood specimen (specimen) 05/23/2013 7:45 AM EST 05/24/2013 8:46 AM EST Narrative Resulting Agency Comment Spec In Lab Anup Hawkins MD IMMUNOLOGY ORDERA BLES [facility] * (ABNORMAL) TSH (05/23/2013 7:45 AM EST) Thyroid Stimulating Hormone 8.48(H) 0.27 - 4.20 mcIU/mL CERNER MILLENNIUM Blood specimen (specimen) 05/23/2013 7:45 AM EST 05/23/2013 7:49 AM EST Narrative Resulting Agency Comment Spec In Lab Anup Hawkins MD CHEMISTRY ORDERAB LES Performing Organization Address [facility] Co de Phone Number [facility]ER[facility]ANNAN HUERTA[facility]NI[facility] * (ABNORMAL) Comprehensive metabolic panel (non-fasting) (05/23/2013 7:45 AM EST) Glucose 99 60 - 199 mg/dL CERNER MILLENNIUM Comment:Diabetes: >=200 mg/d L plus symptoms Blood Urea Nitrogen 50(H) 10 - 20 mg/dL CERNER MILLENNIUM Creatinine 2.00(H) 0.80 - 1.50 mg/dL CERNER MILLENNIUM Comment: Please note that the pediatric reference intervals supplied above were not validated at [facility]. Results from pediatric patients should be interpreted [...] MD CHEMISTRY ORDERAB LES Performing Organization Address [facility] Co de Phone Number [facility] * Uric acid (05/23/2013 7:45 AM EST) Uric Acid 5.3 3.5 - 8.5 mg/dL [facility] M[facility] Blood specimen (specimen) 05/23/2013 7:45 AM EST 05/23/2013 7:49 AM EST Narrative Resulting Agency Comment Spec In Lab Anup Hawkins MD CHEMISTRY ORDERAB LES Performing Organization Address [facility] Co de Phone Number [facility] * Tacrolimus level (05/23/2013 7:45 AM EST) Tacrolimus 3.6 ng/mL CERNER MILLENNIUM Comment:Trough therapeutic: 5-15 ng/mL Blood specimen (specimen) 05/23/2013 7:45 AM EST 05/23/2013 11:57 AM EST Narrative Resulting Agency Comment Spec In Lab Anup Hawkins MD CHEMISTRY ORDERAB LES [facility] * Reticulocyte Count (05/23/2013 7:45 AM [...] following risk cutoff thresholds for the [place] population: Desirable: <200 mg/dL Borderline High: 200-239 mg/dL High: > or = 240 mg/dL Blood specimen (specimen) 05/23/2013 7:45 AM EST 05/23/2013 7:49 AM EST Narrative Resulting Agency Comment Spec In Lab Anup Hawkins MD CHEMISTRY ORDERAB LES Performing Organization Address [facility] de Phone Number BUSHRA SIMONIUM * (ABNORMAL) Prothrombin Time (05/23/2013 7:45 AM EST) Prothrombin Time 24.9(H) 12.0 - 15.0 sec CERNER MILLENNIUM Comment: [facility] Transfusion Committee Guidelines: INR less than [...] MD HEMATOLOGY ORDERA BLES Performing Organization Address [facility] Phone Number [facility] * Vitamin B12 (05/23/2013 7:45 AM EST) Vitamin B12 381 207 - 974 pg/mL CERNER MILLENNIUM Blood specimen (specimen) 05/23/2013 7:45 AM EST 05/23/2013 7:49 AM EST Narrative Resulting Agency Comment Spec In Lab Anup Hawkins MD CHEMISTRY ORDERAB LES Performing Organization Address [facility] Co de Phone Number [facility] * (ABNORMAL) Iron and TIBC (05/23/2013 7:45 AM EST) Iron 91 45 - 160 mcg/dL CERNER MILLENNIUM TIBC 245(L) 250 - 450 mcg/dL CERNER MILLENNIUM Iron Saturation 37 20 - 50 % CERN ER MILLENNIUM Blood specimen (specimen) 05/23/2013 7:45 AM EST 05/23/2013 7:49 AM EST Narrative Resulting Agency Comment Spec In Lab Anup Hawkins MD CHEMISTRY ORDERAB LES Performing Organization Address [facility] Co de Phone Number CERNER MILLENNIUM * Folate, serum (05/23/2013 7:45 AM EST) Folate 12.9 4.6 - 34.8 ng/mL CERNER MILLENNIUM Blood specimen (specimen) 05/23/2013 7:45 AM EST 05/23/2013 7:49 AM EST Narrative Resulting Agency Comment Spec In Lab Anup Hawkins MD CHEMISTRY ORDERAB LES Performing Organization Address [facility] de Phone Number CERNER MILLENNIUM * Ferritin (05/23/2013 7:45 AM EST) Ferritin 275 30 - 400 ng/mL CERNER MILLENNIUM Comment: Pediatric reference ranges not verified at [facility], interpret with caution. Reference ranges for females greater than 50 years of age approach values for men, i.e., 30-400 ng/mL. Blood specimen (specimen) 05/23/2013 7:45 AM EST 05/23/2013 7:49 AM EST Narrative Resulting Agency Comment Spec In Lab Anup Hawkins MD CHEMISTRY ORDERAB LES Performing Organization Address City/[facility]/ZIP Co de Phone Number [facility] documented in this encounter Visit Diagnoses Diagnosis Transplanted kidney Kidney replaced by transplant Need for prophylactic immunotherapy Health care maintenance Unspecified general medical examination documented in this encounter Care Teams Electrical Transmission Engineer Relationship Specialty Start Date End Date Carroll Fuentes DO [address] [place] [address] PCP - General 09/23/11 10/20/22 documented as of this encounter
--- OUTSIDE RECORDS SUMMARY | 2024-05-23 13:38 | XMS_ITS | Encounter Summary ---
Author Organization [facility] Address [facility] [place] [address] Care Team Providers Care Communications Officer Name Role Phone AlfredoCarroll allison Primary Care Provider [phone] Reason for Visit * Reason Comments Follow-up Encounter Details Date Type Department Care Team (Late st Contact Info) Description 11/07/2013 9:30 AM EDT Office Visit Dermatology at [address] [address] Bashir Benitez MD [address] [place] [address], [facility] [place] [place] [address] Rosacea (Primary Dx) Social History Tobacco Use [...] Primary documented in this encounter Care Teams Communications Officer Relationship Specialty Start Date End Date Carroll Fuentes DO [address] [place] [address] [address] [facility] [address] [place] [address] PCP - General 09/23/11 10/20/22 documented as of this encounter
[2024-05-23 13:39] LABS: Abs Immature Grans 0.01 10^3/uL (0.0-0.06); Absolute Basophil Count 0.04 10^3/uL (0.0-0.2); Absolute Eosinophil Count 0.11 10^3/uL (0.0-0.7); Absolute Lymphocyte Count 1.08 10^3/uL (1.2-3.4); Absolute Monocyte Count 0.55 10^3/uL (0.1-0.8); Absolute Neutrophil Count 3.52 10^3/uL (1.2-6.7); Basophils % 0.8 %; Eosinophils % 2.1 %; HCT 38.4 % (40.0-50.0); HGB 12.7 g/dL (13.5-17.5); Immature Grans % 0.2 %; Lymphocytes % 20.3 %; MCH 32.5 pg (27.0-33.0); MCHC 33.1 % (32.0-36.0); MCV 98 fL (80-95); MPV 8.9 fL (8.0-11.0); Monocytes % 10.4 %; Neutrophils % 66.2 %; Platelet Count 224 10^3/uL (130-400); RBC 3.91 10^6/uL (4.36-5.78); RDW 13.2 % (11.8-14.1); RDW-SD 46.4 fL; WBC 5.31 10^3/uL (4.4-10.8)
--- OUTSIDE RECORDS SUMMARY | 2024-05-23 13:39 | XMS_ITS | Encounter Summary ---
Author Organization [facility] Address [facility] [place] [address] Care Team Providers Care Deliverer Pharmacy Name Role Phone Carroll Fuentes DO Primary Care Provider [phone] Reason for Visit * Reason Onset Date Comments Medication Refill 11/21/2012 Encounter Details Date Type Department Care Team (Late st Contact Info) Description 11/21/2012 [place] [address] Alfonzo Miles MD [facility] [place] [place] [address] Social History Tobacco Use Types Packs/Day Years [...] twice daily 30 or 90 Day: [facility] Last Appointment: Next Appointment:11/22/2012 documented in this encounter Plan of Treatment Not on file documented as of this encounter Visit Diagnoses Not on filedocumented in this encounter Care Teams Deliverer Pharmacy Relationship Specialty Start Date End Date Carroll Fuentes DO [address] [place] [address] PCP - General 09/23/11 10/20/22 documented as of this encounter
--- OUTSIDE RECORDS SUMMARY | 2024-05-23 13:39 | XMS_ITS | Encounter Summary ---
[place] [address] Care Team Providers Care Match Marker Name Role Phone Carroll Fuentes DO Primary Care Provider Encounter Details Date Type Department Care Team (Late st Contact Info) Description 01/17/2013 Notes Only [place] [address] Isidoro Wild MSW Social History Tobacco Use [...] on filedocumented in this encounter Care Teams Match Marker Relationship Specialty Start Date End Date Carroll Fuentes DO [address] [place] [address] PCP - General 09/23/11 10/20/22 documented as of this encounter
--- OUTSIDE RECORDS SUMMARY | 2024-05-23 13:39 | XMS_ITS | Encounter Summary ---
Author Organization [facility] Address [facility] [place] [address] Care Team Providers Care Manager Route Name Role Phone Carroll Fuentes DO Primary Care Provider [phone] Reason for Visit * Reason Comments Medication Refill Encounter Details Date Type Department Care Team (Late st Contact Info) Description 09/16/2012 [place] [address] Alfonzo Miles MD [facility] [place] [address] Social History Tobacco Use Types Packs/Day Years [...] filedocumented in this encounter Care Teams Manager Route Relationship Specialty Start Date End Date Carroll Fuentes DO [address] [place] [address] PCP - General 09/23/11 10/20/22 documented as of this encounter
--- OUTSIDE RECORDS SUMMARY | 2024-05-23 13:39 | XMS_ITS | Encounter Summary ---
Author Organization [facility] Address [facility] [place] [address] Care Team Providers Care Acetylene Gas Compressor Name Role Phone Carroll Fuentes DO Primary Care Provider [phone] Reason for Visit * Reason Comments Follow Up Surgery R shoulder Encounter Details Date Type Department Care Team (Late st Contact Info) Description 04/29/2012 10:00 AM EDT Office [place] [address] Sabrina Sanchez MD [facility] [place] [place] [address] BCC (basal cell carcinoma of skin) (Primary [...] unspecified documented in this encounter Care Teams Acetylene Gas Compressor Relationship Specialty Start Date End Date Carroll Fuentes DO [address] [place] [address] PCP - General 09/23/11 10/20/22 documented as of this encounter
--- OUTSIDE RECORDS SUMMARY | 2024-05-23 13:39 | XMS_ITS | Encounter Summary ---
Author Organization [facility] Address [facility] [place] [address] Care Team Providers Care Lens Gauger Name Role Phone AlfredoCarroll allison Primary Care Provider Encounter Details Date Type Department Care Team (Latest Contact Info) Description 07/26/2012 6:55 PM EST - 07/26/2012 11:59 PM [facility] Hospital [place] [address] Anup Hawkins MD [facility] [place] [address] Discharge Disposition: Home Social History Tobacco Use [...] 7:12 PM EST) Tacrolimus <3.0 ng/mL [facility] Comment:Trough therapeutic: 5-15 ng/mL Blood specimen (specimen) 07/26/2012 7:12 PM EST 07/27/2012 8:08 AM EST Narrative Resulting Agency Comment Spec In Lab Anup Hawkins MD CHEMISTRY ORDERAB LES [facility] documented in this encounter Visit Diagnoses Not on filedocumented in this encounter Care Teams Lens Gauger Relationship Specialty Start Date End Date Carroll Fuentes DO [address] [place] [address] PCP - General 09/23/11 10/20/22 documented as of this encounter
--- OUTSIDE RECORDS SUMMARY | 2024-05-23 13:39 | XMS_ITS | Encounter Summary ---
Author Organization [facility] Address [facility] [place] [address] Care Team Providers Care Supervisor Cigar Processing Name Role Phone Carroll Fuentes DO Primary Care Provider Encounter Details Date Type Department Care Team (Late st Contact Info) Description 11/21/2012 [place] [address] Alfonzo Miles MD [facility] [place] [address] Social History Tobacco Use Types [...] filedocumented in this encounter Care Teams Supervisor Cigar Processing Relationship Specialty Start Date End Date Carroll Fuentes DO [address] [place] [address] PCP - General 09/23/11 10/20/22 documented as of this encounter
--- OUTSIDE RECORDS SUMMARY | 2024-05-23 13:39 | XMS_ITS | Encounter Summary ---
Author Organization [facility] Address [facility] [place] [address] Care Team Providers Care Dental Hygienist Mobile Coordinator Name Role Phone Carroll Fuentes DO Primary Care Provider [phone] Encounter Details Date Type Department Care Team (Latest Contact Info) Description 12/07/2012 8:50 AM EDT - 12/07/2012 11:59 PM EDT [place] [address] Alfozno Miles MD [facility] [place] [address] Epilepsy Discharge Disposition: Home Social History Tobacco [...] epilepsy documented in this encounter Care Teams Dental Hygienist Mobile Coordinator Relationship Specialty Start Date End Date Carroll Fuentes DO [address] [place] [address] [address] [place] [address] PCP - General 09/23/11 10/20/22 documented as of this encounter
--- OUTSIDE RECORDS SUMMARY | 2024-05-23 13:39 | XMS_ITS | Encounter Summary ---
Author Organization [facility] Address [facility] [place] [address] Care Team Providers Care Bolting Machine Operator Name Role Phone Carroll Fuentes DO Primary Care Provider [phone] Reason for Visit * Reason Comments Medication Refill Encounter Details Date Type Department Care Team (Late st Contact Info) Description 01/29/2013 Refill [place] [address] Anup Hawkins MD [facility] [place] [address] Social History Tobacco Use Types Packs/Day Years [...] on filedocumented in this encounter Care Teams Bolting Machine Operator Relationship Specialty Start Date End Date Carroll Fuentes DO [address] [place] [address] PCP - General 09/23/11 10/20/22 documented as of this encounter
--- OUTSIDE RECORDS SUMMARY | 2024-05-23 13:39 | XMS_ITS | Encounter Summary ---
Author Organization [facility] Address [facility] [place] [address] Care Team Providers Care Change Lead Name Role Phone Carroll Fuentes DO Primary Care Provider Reason for Visit * Reason Comments Medication Refill Encounter Details Date Type Department Care Team (Late st Contact Info) Description 06/29/2012 Refill Solid [place] [address] Anup Hawkins MD [facility] [place] [address] HTN (hypertension) (Primary Dx) Social History Tobacco [...] hypertension documented in this encounter Care Teams Change Lead Relationship Specialty Start Date End Date Carroll Fuentes DO [address] [place] [address] PCP - General 09/23/11 10/20/22 documented as of this encounter
--- OUTSIDE RECORDS SUMMARY | 2024-05-23 13:39 | XMS_ITS | Encounter Summary ---
Author Organization [facility] Address [facility] [place] [address] Care Team Providers Care Debt And Budget Counselor Name Role Phone AlfredoCarroll allison Primary Care Provider [phone] Reason for Visit * Reason Onset Date Comments Elevated Blood Pressure 12/21/2012 Encounter Details Date Type Department Care Team (Late st Contact Info) Description 12/21/2012 Telephone [place] [address] Anastasia García RN Elevated Blood Pressure Social [...] on filedocumented in this encounter Care Teams Debt And Budget Counselor Relationship Specialty Start Date End Date Carroll Fuentes DO [address] [place] [address] PCP - General 09/23/11 10/20/22 documented as of this encounter
--- OUTSIDE RECORDS SUMMARY | 2024-05-23 13:39 | XMS_ITS | Encounter Summary ---
Author Organization [place] [address] Care Team Providers Care Aircraft Rigging And Controls Mechanic Name Role Phone AlfredoCarroll allison Primary Care Provider [phone] Reason for Visit * Reason Onset Date Comments Other 04/29/2012 MAP-Walk In ? Encounter Details Date Type Department Care Team (Late st Contact Info) Description 04/29/2012 Telephone [place] [address] Nanda Tao Other (MAP-Walk In ?) Social [...] today re:Apresoline-advised he can get generic at [facility] [id number] documented in this encounter Plan of Treatment Not on file documented as of this encounter Visit Diagnoses Not on filedocumented in this encounter Care Teams Aircraft Rigging And Controls Mechanic Relationship Specialty Start Date End Date Carroll Fuentes DO [address] [place] [address] PCP - General 09/23/11 10/20/22 documented as of this encounter
--- OUTSIDE RECORDS SUMMARY | 2024-05-23 13:39 | XMS_ITS | Encounter Summary ---
Author Organization [facility] Address [facility] [place] [address] Care Team Providers Care Heavy Equipment Service Technician Name Role Phone AlfredoCarroll allison Primary Care Provider [phone] Encounter Details Date Type Department Care Team (Latest Contact Info) Description 09/20/2012 7:44 PM EDT - 09/20/2012 11:59 PM EDT [place] [address] Anup Hawkins MD [facility] [place] [address] Discharge Disposition: Home Social History Tobacco Use [...] (09/20/2012 9:15 AM EDT) Tacrolimus 3.2 ng/mL [facility] Comment:Trough therapeutic: 5-15 ng/mL Blood specimen (specimen) 09/20/2012 9:15 AM EDT 09/21/2012 8:10 AM EDT Narrative Resulting Agency Comment Spec In Lab Anup Hawkins MD CHEMISTRY ORDERAB LES [facility] documented in this encounter Visit Diagnoses Not on filedocumented in this encounter Care Teams Heavy Equipment Service Technician Relationship Specialty Start Date End Date Carroll Fuentes DO [address] [place] [address] PCP - General 09/23/11 10/20/22 documented as of this encounter
--- OUTSIDE RECORDS SUMMARY | 2024-05-23 13:39 | XMS_ITS | Encounter Summary ---
Author Organization [facility] Address [facility] [place] [address] Care Team Providers Care Tool Design Engineer Name Role Phone Carroll Fuentes DO Primary Care Provider [phone] Encounter Details Date Type Department Care Team (Late st Contact Info) Description 04/19/2012 2:14 PM EDT Anesthesia Event [place] [address] Herman Rai MD [facility] DR [place] [address] Kori Hinton MD [facility] DR [place] [address] Anesthesia Record Procedure Summary Procedure Name Responsible [...] on filedocumented in this encounter Care Teams Tool Design Engineer Relationship Specialty Start Date End Date Carroll Fuentes DO [address] [place] [address] PCP - General 09/23/11 10/20/22 documented as of this encounter
--- OUTSIDE RECORDS SUMMARY | 2024-05-23 13:39 | XMS_ITS | Encounter Summary ---
Author Organization [facility] Address [facility] [place] [address] Care Team Providers Care Overhead Door Technician Name Role Phone AlfredoCarroll allison Primary Care Provider Encounter Details Date Type Department Care Team (Latest Contact Info) Description 04/25/2012 7:11 PM EDT - 04/25/2012 11:59 PM EDT Hospital [place] [address] Anup Hawkins MD [facility] [place] [address] Discharge Disposition: Home Social History Tobacco Use [...] (04/25/2012 7:19 PM EDT) Tacrolimus 3.9 ng/mL [facility] Comment:Trough therapeutic: 5-15 ng/mL Blood specimen (specimen) 04/25/2012 7:19 PM EDT 04/26/2012 8:12 AM EDT Narrative Resulting Agency Comment Spec In Lab Anup Hawkins MD CHEMISTRY ORDERAB LES Performing Organization Address City/State/[facility] Co de Phone Number [facility] documented in this encounter Visit Diagnoses Not on filedocumented in this encounter Care Teams Overhead Door Technician Relationship Specialty Start Date End Date Carroll Fuentes DO [address] [place] [address] [address] [place] [address] PCP - General 09/23/11 10/20/22 documented as of this encounter
--- OUTSIDE RECORDS SUMMARY | 2024-05-23 13:39 | XMS_ITS | Encounter Summary ---
Author Organization [facility] Address [facility] [place] [address] Care Team Providers Care Technical Product Manager Name Role Phone Carroll Fuentes DO Primary Care Provider Reason for Visit * Reason Onset Date Comments Medication Refill 06/24/2012 Encounter Details Date Type Department Care Team (Late st Contact Info) Description 06/24/2012 [place] [address] Alfonzo Miles MD [facility] [place] [address] Epilepsy (Primary Dx) Social History Tobacco Use [...] epilepsy documented in this encounter Care Teams Technical Product Manager Relationship Specialty Start Date End Date Carroll Fuentes DO [address] [place] [address] PCP - General 09/23/11 10/20/22 documented as of this encounter
--- OUTSIDE RECORDS SUMMARY | 2024-05-23 13:39 | XMS_ITS | Encounter Summary ---
Author Organization [facility] Address [facility] [place] [address] Care Team Providers Care Clarifying Plant Operator Name Role Phone AlfredoCarroll allison Primary Care Provider [phone] Encounter Details Date Type Department Care Team (Latest Contact Info) Description 10/21/2012 7:10 PM EDT - 10/21/2012 11:59 PM EDT [place] [address] Anup Hawkins MD [facility] [place] [address] Discharge Disposition: Home Social History Tobacco Use [...] on filedocumented in this encounter Care Teams Clarifying Plant Operator Relationship Specialty Start Date End Date aCrroll Fuentes DO [address] [facility] [address] [place] [address] PCP - General 09/23/11 10/20/22 documented as of this encounter
--- OUTSIDE RECORDS SUMMARY | 2024-05-23 13:39 | XMS_ITS | Encounter Summary ---
Author Organization [facility] Address [facility] [place] [address] Care Team Providers Care Coating Technician Name Role Phone AlfredoCarroll allison Primary Care Provider [phone] Encounter Details Date Type Department Care Team (Latest Contact Info) Description 01/20/2013 6:49 PM EDT - 01/20/2013 11:59 PM EDT Hospital [place] [address] Anup Hawkins MD [facility] [place] [address] Discharge Disposition: Home Social History Tobacco Use [...] (01/20/2013 9:15 AM EDT) Tacrolimus 3.8 ng/mL [facility] Comment:Trough therapeutic: 5-15 ng/mL Blood specimen (specimen) 01/20/2013 9:15 AM EDT 01/23/2013 8:06 AM EDT Narrative Resulting Agency Comment Spec In Lab Anup Hawkins MD CHEMISTRY ORDERAB LES Performing Organization Address City/State/[facility] Co de Phone Number [facility] documented in this encounter Visit Diagnoses Not on filedocumented in this encounter Care Teams Coating Technician Relationship Specialty Start Date End Date Carroll Fuentes DO [address] [place] [address] PCP - General 09/23/11 10/20/22 documented as of this encounter
--- OUTSIDE RECORDS SUMMARY | 2024-05-23 13:39 | XMS_ITS | Encounter Summary ---
Author Organization [facility] [place] [address] Care Team Providers Care Employment Law Attorney Name Role Phone AlfredoCarroll allison Primary Care Provider [phone] Encounter Details Date Type Department Care Team (Late st Contact Info) Description 01/19/2013 Telephone [place] [id number] Leisa Angulo Social History Tobacco Use Types [...] follow up on information needed for the [facility] application for [employer]. [facility] had faxed requesting the patient's insurance information. Upon review of the patient's account it was discovered that he has active [place] Medicaid. Advised the patient that he should have his pharmacy bill Medicaid for his Cellcept documented in this encounter Plan of Treatment Not on file documented as of this encounter Visit Diagnoses Not on filedocumented in this encounter Care Teams Employment Law Attorney Relationship Specialty Start Date End Date Carroll Fuentes DO [address] [place] [address] PCP - General 09/23/11 10/20/22 documented as of this encounter
--- OUTSIDE RECORDS SUMMARY | 2024-05-23 13:39 | XMS_ITS | Encounter Summary ---
Author Organization [facility] Address [facility] [place] [address] Care Team Providers Care Change Management Administrator Name Role Phone Carroll Fuentes DO Primary Care Provider [phone] Reason for Visit * Reason Comments Medication Refill Encounter Details Date Type Department Care Team (Late st Contact Info) Description 11/05/2012 Refill [place] [address] Anup Hawkins MD [facility] [place] [address] Social History Tobacco Use Types Packs/Day Years [...] on filedocumented in this encounter Care Teams Change Management Administrator Relationship Specialty Start Date End Date Carroll Fuentes DO [address] [place] [address] PCP - General 09/23/11 10/20/22 documented as of this encounter
--- OUTSIDE RECORDS SUMMARY | 2024-05-23 13:39 | XMS_ITS | Encounter Summary ---
Author Organization [facility] Address [facility] [place] [address] Care Team Providers Care Herpetology Teacher Name Role Phone AlfredoCarroll allison Primary Care Provider [phone] Reason for Visit * Reason Comments Kidney Transplant Follow-up Encounter Details Date Type Department Care Team (Late st Contact Info) Description 12/07/2012 9:00 AM EDT Follow-Up [place] [address] [facility] [place] [address] Transplanted kidney (Primary Dx); Need for prophylactic [...] EDT Transplant Nephrology Follow Up Adama Ram [id number] Patient ID: Adama Ram is a [...] UA Negative Appearance UA Clear Clear Spec [place] UA 1.011 1.002 - 1.030 Color UA [...] but he needs a referral to a technical sales specialist for allof his truncal nevi of various [...] MD CHEMISTRY ORDERAB LES Performing Organization Address City/[facility] Co de Phone Number BUSHRA SIMONIUM * Uric acid, urine, 24 hour (12/07/2012 9:56 AM EDT) U24 Uric Conc 9.0 mg/dL CERNER MILLENNIUM Uric Acid, 24 Hour Urine 0.26 0.25 - 0.80 gm/24hr CERNER BRADLEYENNIUM Urine specimen (specimen) 12/07/2012 9:56 AM EDT 12/07/2012 9:56 AM EDT Narrative Resulting Agency Comment Spec In Lab Anup Hawkins MD URINE ORDERABLES Performing Organization Address [facility] de Phone Number BUSHRA SIMONIUM * Phosphorus, urine, 24 hour (12/07/2012 9:56 AM EDT) Phosphorus Concentration, U24 21.9 mg/dL CERSHANNAN HUETRAENNIUM Phosphorus, 24 Hour Urine 0.6 0.4 - 1.3 gm/24hr CERSHANNAN HUERTAENNIUM Urine specimen (specimen) 12/07/2012 9:56 AM EDT 12/07/2012 9:56 AM EDT Narrative Resulting Agency Comment Spec In Lab Anup Hawkins MD URINE ORDERABLES Performing Organization Address [facility] de Phone Number BUSHRA SIMONIUM * (ABNORMAL) Calcium, urine, 24 hour (12/07/2012 9:56 AM EDT) Ca Concentration, U24 0.6 mg/dL [facility] Calcium, 24 Hour Urine 17.4(L) 50.0 [...] MD URINE ORDERABLES Performing Organization Address City/[facility]/ZIP Co de Phone Number CERSHANNAN MILLENNIUM * (ABNORMAL) Protein, urine, 24 hour (12/07/2012 9:56 AM EDT) Protein Concentration, U24 106(H) <=80 mg/dL CERNER MILLENNIUM Protein, 24 Hour Urine 3.07(H) <=0.15 gm/24hr CERNER MILLENNIUM Urine specimen (specimen) 12/07/2012 9:56 AM EDT 12/07/2012 9:56 AM EDT Narrative Resulting Agency Comment Spec In Lab Anup Hawkins MD URINE ORDERABLES Performing Organization Address [facility] [...] Urine Dipstick Clear Clear CERNER MILLENNIUM Specific [place] Urine Automated 1.011 1.002 - 1.030 CERNER [...] MD HEMATOLOGY ORDERA BLES Performing Organization Address City/[facility]/ZIP Co de Phone Number BUSHRA SIMONIUM * (ABNORMAL) Levetiracetam level (12/07/2012 9:00 AM EDT) Levetiracetam Lvl (NOVEMBER) 63.8(H) 12.0 - 46.0 mcg/mL CERNER MILLENNIUM Comment: Test Performed by: [facility] [place], [facility] [address] [place] [address] Manager Bank: Herber Tomas III, M.D. Blood specimen (specimen) [...] supplied above were not validated at [facility]. Results from pediatric patients should be interpreted [...] CHEMISTRY ORDERAB LES Performing Organization Address [facility] de Phone Number [facility] BRADLEYENNIUM * Magnesium (12/07/2012 9:00 AM EDT) Magnesium 0.85 0.69 - 1.07 mmol/L CERNER MILLENNIUM Blood specimen (specimen) 12/07/2012 9:00 AM EDT 12/07/2012 9:04 AM EDT Narrative Resulting Agency Comment Spec In Lab Anup Hawkins MD CHEMISTRY ORDERAB LES Performing Organization Address [facility] Co de Phone Number [facility] BRADLEYENNIUM * Phosphorus (12/07/2012 9:00 AM EDT) Phosphorus 3.8 2.5 - 4.5 mg/dL CERNER MILLENNIUM Blood specimen (specimen) 12/07/2012 9:00 AM EDT 12/07/2012 9:04 AM EDT Narrative Resulting Agency Comment Spec In Lab Anup Hawkins MD CHEMISTRY ORDERAB LES Performing Organization Address [facility] Co de Phone Number BUSHRA HUERTAENNIUM * Uric acid (12/07/2012 9:00 AM EDT) Uric Acid 6.1 3.5 - 8.5 mg/dL BUSHRA HUERTAENNIUM Blood specimen (specimen) 12/07/2012 9:00 AM EDT 12/07/2012 9:04 AM EDT Narrative Resulting Agency Comment Spec In Lab Anup Hawkins MD CHEMISTRY ORDERAB LES Performing Organization Address [facility] de Phone Number BUSHRA HUERTAENNIUM * Tacrolimus level (12/07/2012 9:00 AM EDT) Tacrolimus <3.0 ng/mL [facility] BRADLEY[facility]NIUM Comment:Trough therapeutic: 5-15 ng/mL Blood specimen (specimen) 12/07/2012 9:00 AM EDT 12/07/2012 12:13 PM EDT Narrative Resulting Agency Comment Spec In Lab Anup Hawkins MD CHEMISTRY ORDERAB LES Performing Organization Address [facility] Co de Phone Number BUSHRA SIMONIUM [...] HEMATOLOGY ORDERA BLES Performing Organization Address [facility]/ZIP Co de Phone Number CERNER MILLENNIUM * [...] MD HEMATOLOGY ORDERA BLES Performing Organization Address City/[facility]/ZIP Co de Phone Number CERNER BRADLEYENNIUM * Cholesterol, total (12/07/2012 9:00 AM EDT) Cholesterol, Total 161 <=199 mg/dL CERNER MILLENNIUM Comment: Recommendations of the NCEP Adult Treatment Panel for the following risk cutoff thresholds for the [place] population: Desirable: <200 mg/dL Borderline High: 200-239 mg/dL High: > or = 240 mg/dL Blood specimen (specimen) 12/07/2012 9:00 AM EDT 12/07/2012 9:04 AM EDT Narrative Resulting Agency Comment Spec In Lab Anup Hawkins MD CHEMISTRY ORDERAB LES Performing Organization Address City/State/[facility] Co ga Phone Number [facility] documented in this encounter Visit Diagnoses Diagnosis Transplanted kidney- Primary Kidney replaced by transplant Need for prophylactic immunotherapy Proteinuria documented in this encounter Care Teams Herpetology Teacher Relationship Specialty Start Date End Date Carroll Fuentes DO [address] [place] [address] PCP - General 09/23/11 10/20/22 documented as of this encounter
--- OUTSIDE RECORDS SUMMARY | 2024-05-23 13:39 | XMS_ITS | Encounter Summary ---
Author Organization [facility] Address [facility] [place] [address] Care Team Providers Care Qa Software Test Engineer Name Role Phone AlfredoCarroll allison Primary Care Provider Encounter Details Date Type Department Care Team (Latest Contact Info) Description 04/22/2012 7:26 PM EDT - 04/22/2012 11:59 PM EDT [place] [address] Anup Hawkins MD [facility] [place] [address] Discharge Disposition: Home Social History Tobacco Use [...] (04/22/2012 1:30 PM EDT) Tacrolimus 4.6 ng/mL [facility] Comment:Trough therapeutic: 5-15 ng/mL Blood specimen (specimen) 04/22/2012 1:30 PM EDT 04/25/2012 8:22 AM EDT Narrative Resulting Agency Comment Spec In Lab Anup Hawkins MD CHEMISTRY ORDERAB LES Performing Organization Address City/State/[facility] Co de Phone Number [facility] documented in this encounter Visit Diagnoses Not on filedocumented in this encounter Care Teams Qa Software Test Engineer Relationship Specialty Start Date End Date Carroll Fuentes DO [address] [place] [address] [address] [place] [address] PCP - General 09/23/11 10/20/22 documented as of this encounter
--- OUTSIDE RECORDS SUMMARY | 2024-05-23 13:39 | XMS_ITS | Encounter Summary ---
Author Organization [facility] [place] [address] Care Team Providers Care Agricultural Extension Officer Name Role Phone AlfredoCarroll allison Primary Care Provider [phone] Encounter Details Date Type Department Care Team (Latest Contact Info) Description 09/23/2012 External Results [place] [address] Busterelena Erika Quin Transplanted kidney; Need for [...] Procedure Name Priority Date/Time Associated Diagnosis Comments [facility] TRANSPLANT FOLLOW UP LABS EXTERNAL [...] immunotherapy documented in this encounter Care Teams Agricultural Extension Officer Relationship Specialty Start Date End Date Carroll Fuentes DO [address] [place] [address] PCP - General 09/23/11 10/20/22 documented as of this encounter
--- OUTSIDE RECORDS SUMMARY | 2024-05-23 13:39 | XMS_ITS | Encounter Summary ---
Author Organization [facility] [address] Care Team Providers Care Artist'S Manager Name Role Phone AlfredoCarroll allison Primary Care Provider [phone] Reason for Visit * Reason Onset Date Comments Other 05/02/2012 reschedule misse d appointment Encounter Details Date Type Department Care Team (Late st Contact Info) Description 05/02/2012 [place] [phone] Alfonzo Miles MD [facility] [place] [address] Other (reschedule missed appointment) Social History Tobacco [...] on filedocumented in this encounter Care Teams Artist'S Manager Relationship Specialty Start Date End Date Carroll Fuentes DO [address] [place] [address] PCP - General 09/23/11 10/20/22 documented as of this encounter
--- OUTSIDE RECORDS SUMMARY | 2024-05-23 13:39 | XMS_ITS | Encounter Summary ---
Author Organization [facility] Address [facility] [place] [address] Care Team Providers Care Link Cutter Name Role Phone AlfredoCarroll allison Primary Care Provider Reason for Visit * Reason Onset Date Comments Medication Change/management 10/25/2012 Encounter Details Date Type Department Care Team (Late st Contact Info) Description 10/25/2012 Telephone [place] [address] Anastasia García, ground support equipment fitter Change/management Social History Tobacco Use Types Packs/Day [...] encounter Miscellaneous Notes * Telephone Encounter - Aanstasia García - 10/28/2012 12:29 PM EDT Patient held his Prograf the day his labs and took it after. Patient is on Brand Name Prograf; 1mg capsules; currently taking 1 mg in the AM and 1 mg at bedtime. TEL: [phone] Attached Reports * Telephone Encounter - Anastasia [...] on filedocumented in this encounter Care Teams Link Cutter Relationship Specialty Start Date End Date Carroll Fuentes DO [address] [place] [address] PCP - General 09/23/11 10/20/22 documented as of this encounter
--- OUTSIDE RECORDS SUMMARY | 2024-05-23 13:39 | XMS_ITS | Encounter Summary ---
Author Organization [facility] [place] [address] Care Team Providers Care Greenhouse Manager Name Role Phone AlfredoCarroll allison Primary Care Provider [phone] Encounter Details Date Type Department Care Team (Latest Contact Info) Description 10/24/2012 External Results Solid [place] [address] Anastasia García RN Transplanted kidney; Need for [...] Procedure Name Priority Date/Time Associated Diagnosis Comments [facility] TRANSPLANT FOLLOW UP LABS EXTERNAL RESULTS [...] immunotherapy documented in this encounter Care Teams Greenhouse Manager Relationship Specialty Start Date End Date Carroll Fuentes DO [facility] [address] [place] [address] PCP - General 09/23/11 10/20/22 documented as of this encounter
--- OUTSIDE RECORDS SUMMARY | 2024-05-23 13:39 | XMS_ITS | Encounter Summary ---
[place] [address] Care Team Providers Care Elementary Reading Tutor Name Role Phone Carroll Fuentes DO Primary Care Provider Encounter Details Date Type Department Care Team (Late st Contact Info) Description 04/27/2012 External Results [place] [address] Social History Tobacco Use Types Packs/Day Years [...] filedocumented in this encounter Care Teams Elementary Reading Tutor Relationship Specialty Start Date End Date Carroll Fuentes DO [address] [place] [address] PCP - General 09/23/11 10/20/22 documented as of this encounter
--- OUTSIDE RECORDS SUMMARY | 2024-05-23 13:39 | XMS_ITS | Encounter Summary ---
Author Organization Counts Include [facility] Address [facility] [place] [address] Care Team Providers Care Simulation Specialist Name Role Phone Carroll Fuentes DO Primary Care Provider [phone] Encounter Details Date Type Department Care Team (Late st Contact Info) Description 11/22/2012 2:15 PM EDT [place] [address] Alfonzo Miles MD [facility] [place] [address] Epilepsy (Primary Dx); Transplanted kidney; Need for [...] problem. Alfonzo Miles MD Department [place] [address] Pager: [phone], #[phone] Email: [email or web address] documented in this encounter Progress Notes * [...] necessary. Alfonzo Miles MD [place] [address] Pager: [phone], #[phone] Email: [email or web address] cc: CHASE FUENTES DO documented in this [...] Lab Chase Hawkins MD CHEMISTRY ORDERAB LES [facility] * (ABNORMAL) Iron and TIBC (11/22/2012 3:32 PM EDT) Iron 94 45 - 160 mcg/dL [facility] TIBC 239(L) 250 - 450 mcg/dL [facility] Iron Saturation 39 20 - 50 % [facility] Blood specimen (specimen) 11/22/2012 3:32 PM EDT 11/22/2012 3:38 PM EDT Narrative Resulting Agency Comment Spec In Lab Chase Hawkins MD CHEMISTRY ORDERAB LES Performing Organization Address [facility] Co de Phone Number [facility] * Folate, serum (11/22/2012 3:32 PM EDT) Pathologist [facility] Folate >20.0 4.6 - 34.8 ng/mL [facility] Blood specimen (specimen) 11/22/2012 3:32 PM EDT 11/22/2012 3:38 PM EDT Narrative Resulting Agency Comment Spec In Lab Chase Hawkins MD CHEMISTRY ORDERAB LES Performing Organization Address [facility] Co de Phone Number [facility] * Ferritin (11/22/2012 3:32 PM EDT) Ferritin 125 30 - 400 ng/mL [facility] Comment: Pediatric reference ranges not verified at [facility], interpret with caution. Reference ranges for females greater than 50 years of age approach values for men, i.e., 30-400 ng/mL. Blood specimen (specimen) 11/22/2012 3:32 PM EDT 11/22/2012 3:38 PM EDT Narrative Resulting Agency Comment Spec In Lab Chase Hawkins MD CHEMISTRY ORDERAB LES Performing Organization Address City/[facility]/ZIP Co de Phone Number [facility] * (ABNORMAL) Prothrombin Time (11/22/2012 3:32 PM EDT) Prothrombin Time 31.1(H) 12.0 - 15.0 sec [facility] Comment: [facility] Transfusion Committee Guidelines: INR less than 2.0, PTT less than OR equal to 43.5 seconds, or Fibrinogen greater than or equal to 100 mg/dl indicate adequate procoagulant activity for hemostasis in patients without underlying bleeding disorders. International Normalization Ratio 2.9(H) 0.9 - 1.1 [facility] Blood specimen (specimen) 11/22/2012 3:32 PM EDT 11/22/2012 3:38 PM EDT Narrative Resulting Agency Comment Spec In Lab Chase Hawkins MD HEMATOLOGY ORDERA BLES Performing Organization Address [facility] Co de Phone Number [facility] * VIT D Total Evaluation (11/22/2012 3:32 PM EDT) Vitamin D Total 25 OH 42 30 - 100 ng/mL [facility] Comment: Deficient <10 ng/mL Insufficient 10 to [...] MD CHEMISTRY ORDERAB LES Performing Organization Address [facility]/ZIP Co de Phone Number [facility] * 1,25-dihydroxycholecalciferol (11/22/2012 3:32 PM EDT) Vit D 1,25 Dihydroxy (NOVEMBER) 28 18 - 64 pg/mL [facility] Comment: Test Performed by: [address] [address] Claims Technician: Herber Tomas III, M.D. Blood specimen (specimen) 11/22/2012 3:32 PM EDT 11/22/2012 4:23 PM EDT Narrative Resulting Agency Comment Spec In Lab Chase Hawkins MD LAB SEND OUT ORDE RABLES [facility] * PTH (11/22/2012 3:32 PM EDT) Parathyroid Hormone 56 15 - 65 pg/mL [facility] Blood specimen (specimen) 11/22/2012 3:32 PM EDT 11/22/2012 3:39 PM EDT Narrative Resulting Agency Comment Spec In Lab Chase Hawkins MD CHEMISTRY ORDERAB LES [facility] * Tacrolimus level (11/22/2012 3:32 PM EDT) Tacrolimus 4.5 ng/mL [facility] Comment:Trough therapeutic: 5-15 ng/mL Blood specimen (specimen) 11/22/2012 3:32 PM EDT 11/23/2012 8:15 AM EDT Narrative Resulting Agency Comment Spec In Lab Cahse Hawkins MD CHEMISTRY ORDERAB LES [facility] * Uric acid (11/22/2012 3:32 PM EDT) Uric Acid 5.6 3.5 - 8.5 mg/dL [facility] Blood specimen (specimen) 11/22/2012 3:32 PM EDT 11/22/2012 3:38 PM EDT Narrative Resulting Agency Comment Spec In Lab Chase Hawkins MD CHEMISTRY ORDERAB LES Performing Organization Address [facility] Co de Phone Number [facility] * Phosphorus (11/22/2012 3:32 PM EDT) Phosphorus 3.1 2.5 - 4.5 mg/dL [facility] Blood specimen (specimen) 11/22/2012 3:32 PM EDT 11/22/2012 3:38 PM EDT Narrative Resulting Agency Comment Spec In Lab Chase Hawkins MD CHEMISTRY ORDERAB LES Performing Organization Address [facility] de Phone Number [facility] * Magnesium (11/22/2012 3:32 PM EDT) Magnesium 0.85 0.69 - 1.07 mmol/L [facility] Blood specimen (specimen) 11/22/2012 3:32 PM EDT 11/22/2012 3:38 PM EDT Narrative Resulting Agency Comment Spec In Lab Chase Hawkins MD CHEMISTRY ORDERAB LES Performing Organization Address [facility] de Phone Number [facility] * (ABNORMAL) Lipid panel (fasting) (11/22/2012 3:32 PM EDT) Cholesterol, Total 142 <=199 mg/dL [facility] Comment: Recommendations of the NCEP Adult Treatment Panel for the following risk cutoff thresholds for the [place] Citizen population: Desirable: <200 mg/dL Borderline High: 200-239 mg/dL High: > or = 240 mg/dL Triglyceride 142 <=149 mg/dL [facility] Comment: Reference Range: Normal triglycerides: ??<150 mg/dL Borderline high: ??150-199 mg/dL High: ??200-499 mg/dL Very high: ??>po=187 mg/dL RAYMOND 2001; 285(19):0255-5204 HDL Cholesterol 37(L) >=40 mg/dL [facility] Comment: Reference range: ??Low HDL: ?? < 40 mg/dL ??Normal: ?40-60 mg/dL ??Desirable: > 60 mg/dL RAYMOND 2001; 285(19):8842-2585 LDL Cholesterol 77 <=99 mg/dL [facility] Comment: Reference range: ?? Optimal: ?<100 mg/dL ?? Near Optimal/Above Optimal: ?? 100-129 mg/dL ?? Borderline high: ?130-159 mg/dL ?? High: ? 160-189 mg/dL ?? Very high: ?>aw=746 mg/dL RAYMOND 2001: 285(19):0926-7994 Cholesterol/HDL Ratio 3.8 ratio [facility] Comment: A Cholesterol to HDL ratio below 4:1 is desirable. ??Studies suggest that increased CAD risk occurs at ratios above 5 for females and above 6 for men. ? [place] Citizen Heart Association ??(http://www.americanheart.org) ? Marizol Int Med, [...] CMP w/fasting Glucose (11/22/2012 3:32 PM EDT) [facility] Glucose Fasting 109(H) 65 - 99 mg/dL [...] of Diabetes Mellitus, Position Statement from the [place] Citizen Diabetes Association. ??Diabetes Care, Volume 33, Supplement [...] DNA isolated from urine was performed using Terrajoule BKV(ASR) reagents and the Applied Arieso 7500 Fast Real-Time PCR System. In addition, the PCR product sequence is confirmed using physical properties (melt curve analysis). This test was developed and its performance determined by the [facility] Molecular Pathology Laboratory. It has not been [...] MD HEMATOLOGY ORDERA BLES Performing Organization Address [facility]/ZIP Co de Phone Number [facility] [...] Hawkins MD URINE ORDERABLES Performing Organization Address [facility] Co de Phone Number [facility] * Phosphorus, urine, random (11/22/2012 3:29 PM EDT) Phosphorus, Urine 45.3 mg/dL [facility] Urine specimen (specimen) 11/22/2012 3:29 PM EDT 11/22/2012 3:32 PM EDT Narrative Resulting Agency Comment Spec In Lab Chase Hawkins MD URINE ORDERABLES Performing Organization Address [facility] Co de [...] Hawkins MD URINE ORDERABLES Performing Organization Address City/[facility] Co de Phone Number [facility] * Creatinine, urine, random (11/22/2012 3:29 PM EDT) Creatinine, Urine 121 mg/dL [facility] Urine specimen (specimen) 11/22/2012 3:29 PM EDT 11/22/2012 3:32 PM EDT Narrative Resulting Agency Comment Spec In Lab Chase Hawkins MD URINE ORDERABLES Performing Organization Address City/[facility] Co de [...] Urine Dipstick Clear Clear [facility] Specific [place] Urine Automated 1.016 1.002 - 1.030 [facility] Color, Urine Dipstick Yellow Yellow [facility] RBC, Urine 1 0 - 3 /HPF [facility] WBC, Urine 1 0 - 3 /HPF [facility] Urine specimen (specimen) 11/22/2012 3:29 PM EDT 11/22/2012 3:32 PM EDT Narrative Resulting Agency Comment Spec In Lab Chase Hawkins MD URINE ORDERABLES Performing Organization Address City/State/[facility] Co tx Phone Number [facility] documented in this encounter Visit Diagnoses Diagnosis Epilepsy- Primary Unspecified epilepsy without mention of intractable epilepsy Transplanted kidney Kidney replaced by transplant Need for prophylactic immunotherapy documented in this encounter Care Teams Simulation Specialist Relationship Specialty Start Date End Date Carroll Fuentes DO [address] [place] [address] PCP - General 09/23/11 10/20/22 documented as of this encounter
--- OUTSIDE RECORDS SUMMARY | 2024-05-23 13:39 | XMS_ITS | Encounter Summary ---
Author Organization [facility] Address [facility] [place] [address] Care Team Providers Care Audio/Visual Manager Name Role Phone AlfredoCarroll allison Primary Care Provider [phone] Encounter Details Date Type Department Care Team (Latest Contact Info) Description 05/20/2012 6:50 PM EST - 05/20/2012 11:59 PM [facility] Hospital [place] [address] Anup Hawkins MD [facility] [place] [address] Discharge Disposition: Home Social History Tobacco Use [...] (05/20/2012 7:00 AM EST) Tacrolimus 3.4 ng/mL [facility] Comment:Trough therapeutic: 5-15 ng/mL Blood specimen (specimen) 05/20/2012 7:00 AM EST 05/23/2012 8:03 AM EST Narrative Resulting Agency Comment Spec In Lab Anup Hawkins MD CHEMISTRY ORDERAB LES [facility] documented in this encounter Visit Diagnoses Not on filedocumented in this encounter Care Teams Audio/Visual Manager Relationship Specialty Start Date End Date Carroll Fuentes DO [address] [place] [address] PCP - General 09/23/11 10/20/22 documented as of this encounter
--- OUTSIDE RECORDS SUMMARY | 2024-05-23 13:39 | XMS_ITS | Encounter Summary ---
Author Organization [facility] Address [facility] [place] [address] Care Team Providers Care Costume Technician Name Role Phone Carroll Fuentes DO Primary Care Provider [phone] Reason for Visit * Reason Onset Date Comments Medication Refill 01/25/2013 Encounter Details Date Type Department Care Team (Late st Contact Info) Description 01/25/2013 Refill [place] [address] Anup Hawkins MD [facility] [place] [address] S/P kidney transplant (Primary Dx) Social History [...] transplant documented in this encounter Care Teams Costume Technician Relationship Specialty Start Date End Date Carroll Fuentes DO [address] [place], [place] [address] PCP - General 09/23/11 10/20/22 documented as of this encounter
--- OUTSIDE RECORDS SUMMARY | 2024-05-23 13:39 | XMS_ITS | Encounter Summary ---
Author Organization [facility] [address] Care Team Providers Care Solution Design Engineer Name Role Phone Carroll Fuentes DO Primary Care Provider [phone] Encounter Details Date Type Department Care Team (Late st Contact Info) Description 01/25/2013 Notes Only [place] [address] Isidoro Wild MSW Social History Tobacco Use [...] longer qualifies for free assistance through the filemaker developer. documented in this encounter Plan of Treatment Not on file documented as of this encounter Visit Diagnoses Not on filedocumented in this encounter Care Teams Solution Design Engineer Relationship Specialty Start Date End Date Carroll Fuentes DO [address] [place] [address] PCP - General 09/23/11 10/20/22 documented as of this encounter
--- OUTSIDE RECORDS SUMMARY | 2024-05-23 13:39 | XMS_ITS | Encounter Summary ---
Author Organization [facility] Address [facility] [place] [address] Care Team Providers Care Mascara Molder Name Role Phone Carroll Fuentes DO Primary Care Provider Encounter Details Date Type Department Care Team (Late st Contact Info) Description 04/26/2012 Orders Only Solid [place] [address] Anup Hawkins MD [facility] [place] [address] Transplanted kidney; Need for prophylactic immunotherapy Social [...] immunotherapy documented in this encounter Care Teams Mascara Molder Relationship Specialty Start Date End Date Carroll Fuentes DO [address] [place], [place] [address] PCP - General 09/23/11 10/20/22 documented as of this encounter
--- OUTSIDE RECORDS SUMMARY | 2024-05-23 13:39 | XMS_ITS | Encounter Summary ---
Author Organization [facility] Address [facility] [place] [address] Care Team Providers Care Edge Grinder Name Role Phone AlfredoCarroll allison Primary Care Provider [phone] Encounter Details Date Type Department Care Team (Latest Contact Info) Description 12/21/2012 7:00 PM EDT - 12/21/2012 11:59 PM EDT Hospital [place] [address] Anup Hawkins MD [facility] [place] [address] Discharge Disposition: Home Social History Tobacco Use [...] (12/21/2012 9:50 AM EDT) Tacrolimus 3.2 ng/mL [facility] Comment:Trough therapeutic: 5-15 ng/mL Blood specimen (specimen) 12/21/2012 9:50 AM EDT 12/22/2012 8:14 AM EDT Narrative Resulting Agency Comment Spec In Lab Anup Hawkins MD CHEMISTRY ORDERAB LES Performing Organization Address City/State/[facility] Co de Phone Number [facility] documented in this encounter Visit Diagnoses Not on filedocumented in this encounter Care Teams Edge Grinder Relationship Specialty Start Date End Date Carroll Fuentes DO [address] [place] [address] PCP - General 09/23/11 10/20/22 documented as of this encounter
--- OUTSIDE RECORDS SUMMARY | 2024-05-23 13:39 | XMS_ITS | Encounter Summary ---
Author Organization [facility] Address [facility] [place] [address] Care Team Providers Care Scientific Software Engineer Name Role Phone AlfredoCarroll allison Primary Care Provider [phone] Encounter Details Date Type Department Care Team (Late st Contact Info) Description 04/19/2012 2:21 PM EDT - 04/19/2012 4:19 PM EDT Surgery [place] [address] Sabrina Sanchez MD [facility] [address] EXC MALIGNANT LESION, MICHAEL > 4.0CM, TRUNK [...] Sanchez MD - 04/19/2012 5:02 PM EDT [facility] Operative Note Patient Name: Christy Ambrose : [id number] MR#: [id number] Case Date: 04/19/2012 Surgeon: Surgeon(s) and Role: [...] pathologic frozen section analysis. We also took wireless sales representative sections around the existing margin at [...] well. CPT codes for the procedure were 86192 and 07178. * OR Attestation - Sabrina Sanchez MD - 04/19/2012 3:53 PM EDT Attestation: Case Date: 04/19/2012 I was present and I participated during the entire procedure (does not need to include opening and closing). SABRINA SANCHEZ MD 04/19/2012 * Brief Op Note - Sabrina Sanchez MD - 04/19/2012 3:52 PM EDT Brief Operative Note Patient Name: Christy Ambrose : [id number] MR#: [id number] Case Date: 04/19/2012 Surgeon: Surgeon(s) and Role: [...] MD PATHOLOGY/CYTOLOGY O UMESH Performing Organization Address [facility] de Phone Number [facility] * Specimen to Pathology (surgical or derm) (04/19/2012 3:14 PM EDT) AP Specimen 04/19/2012 3:14 PM EDT 04/19/2012 3:14 PM EDT Narrative [facility] - 04/19/2012 3:14 PM EDT Specimen requisition ordered. ??Separate Pathology report to follow Sabrina Sanchez MD PATHOLOGY/CYTOLOGY O UMESH Performing Organization Address [facility] de Phone Number [facility] * Specimen to Pathology (surgical or derm) (04/19/2012 3:14 PM EDT) AP Specimen 04/19/2012 3:14 PM EDT 04/19/2012 3:14 PM EDT Narrative [facility] - 04/19/2012 3:14 PM EDT Specimen requisition ordered. ??Separate Pathology report to follow Sabrina Sanchez MD PATHOLOGY/CYTOLOGY O UMESH Performing Organization Address [facility] de Phone Number [facility] * Specimen to Pathology (surgical or derm) (04/19/2012 3:14 PM EDT) AP Specimen 04/19/2012 3:14 PM EDT 04/19/2012 3:14 PM EDT Narrative [facility] - 04/19/2012 3:14 PM EDT Specimen requisition ordered. ??Separate Pathology report to follow Sabrina Sanchez MD PATHOLOGY/CYTOLOGY O UMESH [facility] * SURGICAL PATHOLOGY REPORT (04/19/2012 3:07 PM EDT) Surgical Pathology Report ? [facility] ? Provider: ?? SABRINA SANCHEZ ? Pt. Name: ?? CHRISTY AMBROSE ? Acc #: ?[id number] ? Pt. ? Col Date: ?? 04/19/2012 [...] completely excised in these ? sections. ? [facility] ? Provider: ?? SABRINA SANCHEZ ? Pt. Name: ?? CHRISTY AMBROSE ? Acc #: ?[id number] ? Pt. ? Col Date: ?? 04/19/2012 [...] x 0.1 cm. ? Tissue Description: ?? [place]-smith fragment of skin with blue ink designating ? old margin. ? Sections/Processing: ??Submitted for frozen section. ??The frozen section ? residue, which is the entire specimen, is submitted ? in (B1). ??(T1) ? [facility] ? Provider: ?? SABRINA SANCHEZ ? Pt. Name: ?? CHRISTY AMBROSE ? Acc #: ?[id number] ? Pt. ? Col Date: ?? 04/19/2012 [...] Sabrina Sanchez MD PATHOLOGY/CYTOLOGY O RDERABLES [facility] * FROZEN SECTION REPORT (04/19/2012 3:07 PM EDT) Frozen Section Report ? [facility] ? Provider: ?? SABRINA SANCHEZ ? Pt. Name: ?? CHRISTY AMBROSE ? Acc #: ?[id number] ? Pt. ? Col Date: ?? 04/19/2012 [...] MD PATHOLOGY/CYTOLOGY O UMESH Performing Organization Address [facility] Co de Phone Number [facility] * Specimen to Pathology (surgical or derm) (04/19/2012 3:04 PM EDT) AP Specimen 04/19/2012 3:04 PM EDT 04/19/2012 3:04 PM EDT Narrative [facility] - 04/19/2012 3:04 PM EDT Specimen requisition ordered. ??Separate Pathology report to follow Sabrina Sanchez MD PATHOLOGY/CYTOLOGY O UMESH Performing Organization Address [facility]/State/[facility] Co de Phone Number [facility] * (ABNORMAL) Prothrombin Time (04/19/2012 1:14 PM EDT) Prothrombin Time 19.0(H) 11.9 - 14.7 sec [facility] Comment: [facility] Transfusion Committee Guidelines: INR less [...] Julio Frausto MD HEMATOLOGY ORDERABLE S [facility] documented in this encounter Visit [...] used.) documented in this encounter Care Teams Scientific Software Engineer Relationship Specialty Start Date End Date Carroll Fuentes DO [address] [place] [address] [address] PCP - General 09/23/11 10/20/22 documented as of this encounter
--- OUTSIDE RECORDS SUMMARY | 2024-05-23 13:40 | XMS_ITS | Encounter Summary ---
Author Organization [facility] Address [facility] [place] [address] Care Team Providers Care Animal Caretaker Supervisor Name Role Phone AlfredoCarroll allison Primary Care Provider [phone] Encounter Details Date Type Department Care Team (Late st Contact Info) Description 03/23/2012 Orders Only [place] [address] Anup Hawkins MD [facility] [place] [address] Transplanted kidney; Need for prophylactic immunotherapy Social [...] Hawkins MD URINE ORDERABLES Performing Organization Address City/[facility]/ZIP Co de Phone Number CERNER MILLENNIUM * Phosphorus, urine, 24 hour (03/23/2012 10:06 AM EDT) Phosphorus Concentration, U24 20.9 mg/dL [facility] MILLENNIUM Phosphorus, 24 Hour Urine 0.8 0.4 - 1.3 gm/24hr [facility] MILLENNIUM Urine specimen (specimen) 03/23/2012 10:06 AM EDT 03/23/2012 10:06 AM EDT Narrative Resulting Agency Comment Spec In Lab Anup Hawkins MD URINE ORDERABLES Performing Organization Address [facility] de Phone Number CERNER MILLENNIUM * [...] Hawkins MD URINE ORDERABLES Performing Organization Address [facility] de Phone Number CERNER MILLENNIUM * Creatinine, urine, 24 hour (03/23/2012 10:06 AM EDT) Cre Concentration, U24 38 mg/dL CERNER MILLENNIUM Creatinine, 24 Hour Urine 1.44 0.80 - 1.90 gm/24hr [facility] MILLENNIUM Urine specimen (specimen) 03/23/2012 10:06 AM EDT 03/23/2012 10:06 AM EDT Narrative Resulting Agency Comment Spec In Lab Anup Hawkins MD URINE ORDERABLES Performing Organization Address [facility] Co de Phone Number CERNER [...] Hawkins MD URINE ORDERABLES Performing Organization Address [facility] de Phone Number CERNER MILLENNIUM * (ABNORMAL) Protein, urine, 24 hour (03/23/2012 10:06 AM EDT) Protein Concentration, U24 82(H) <=80 mg/dL CERNER MILLENNIUM Protein, 24 Hour Urine 3.12(H) <=0.15 gm/24hr CERN[facility] MILLENNIUM Urine specimen (specimen) 03/23/2012 10:06 AM EDT 03/23/2012 10:06 AM EDT Narrative Resulting Agency Comment Spec In Lab Anup Hawkins MD URINE ORDERABLES Performing Organization Address City/[facility] Co de Phone Number CERSHANNAN [...] Hawkins MD URINE ORDERABLES Performing Organization Address City/[facility]/ZIP Co de Phone Number CERNER MILLENNIUM [...] Urine Dipstick Clear Clear CERNER MILLENNIUM Specific [place] Urine Automated 1.011 1.002 - 1.030 CERNER [...] Hawkins MD URINE ORDERABLES Performing Organization Address [facility] Co de Phone Number [facility] * VIT D Total Evaluation (03/23/2012 9:04 AM EDT) Vitamin D Total 25 OH 41 30 - 100 ng/mL [facility] Comment: Deficient <10 ng/mL Insufficient 10 [...] CHEMISTRY ORDERAB LES Performing Organization Address [facility] de Phone Number [facility] * 1,25-dihydroxycholecalciferol (03/23/2012 9:04 AM EDT) Vit D 1,25 Dihydroxy (NOVEMBER) 32 18 - 64 pg/mL [facility] Comment: Test Performed by: [facility] - [address] [address] Flush Tester: Herber Tomas III, M.D. Blood specimen (specimen) 03/23/2012 9:04 AM EDT 03/23/2012 10:59 AM EDT Narrative Resulting Agency Comment Spec In Lab Anup Hawkins MD LAB SEND OUT ORDE RABLES [facility] * PTH (03/23/2012 9:04 AM EDT) Parathyroid Hormone 59 15 - 65 pg/mL [facility] M[facility] Blood specimen (specimen) 03/23/2012 9:04 AM EDT 03/23/2012 9:09 AM EDT Narrative Resulting Agency Comment Spec In Lab Anup Hawkins MD CHEMISTRY ORDERAB LES [facility] * Tacrolimus level (03/23/2012 9:04 AM EDT) Tacrolimus 6.5 ng/mL [facility] Comment:Trough therapeutic: 5-15 ng/mL Blood specimen (specimen) 03/23/2012 9:04 AM EDT 03/23/2012 11:48 AM EDT Narrative Resulting Agency Comment Spec In Lab Anup Hawkins MD CHEMISTRY ORDERAB LES [facility] * Uric acid (03/23/2012 9:04 AM EDT) Uric Acid 5.6 3.5 - 8.5 mg/dL [facility] Blood specimen (specimen) 03/23/2012 9:04 AM EDT 03/23/2012 9:09 AM EDT Narrative Resulting Agency Comment Spec In Lab Anup Hawkins MD CHEMISTRY ORDERAB LES [facility] * Phosphorus (03/23/2012 9:04 AM EDT) Phosphorus 2.9 2.5 - 4.5 mg/dL [facility] M[facility] Blood specimen (specimen) 03/23/2012 9:04 AM EDT 03/23/2012 9:09 AM EDT Narrative Resulting Agency Comment Spec In Lab Anup Hawkins MD CHEMISTRY ORDERAB LES [facility] * Magnesium (03/23/2012 9:04 AM EDT) Magnesium 0.80 0.69 - 1.07 mmol/L [facility] Blood specimen (specimen) 03/23/2012 9:04 AM EDT 03/23/2012 9:09 AM EDT Narrative Resulting Agency Comment Spec In Lab Anup Hawkins MD CHEMISTRY ORDERAB LES Performing Organization Address City/[facility]/ZIP Co de Phone Number [facility] * (ABNORMAL) Lipid panel (fasting) (03/23/2012 9:04 AM EDT) Cholesterol, Total 158 <=199 mg/dL [facility] Comment: Recommendations of the NCEP Adult Treatment Panel for the following risk cutoff thresholds for the [place] population: Desirable: <200 mg/dL Borderline High: 200-239 mg/dL High: > or = 240 mg/dL Triglyceride 94 <=149 mg/dL [facility] Comment: Reference Range: Normal triglycerides: ??<150 mg/dL Borderline high: ??150-199 mg/dL High: ??200-499 mg/dL Very high: ??>he=851 mg/dL RAYMOND 2001; 285(19):5761-2817 HDL Cholesterol 38(L) >=40 mg/dL [facility] Comment: Reference range: ??Low HDL: ?? < 40 mg/dL ??Normal: ?40-60 mg/dL ??Desirable: > 60 mg/dL RAYMOND 2001; 285(19):0152-2359 LDL Cholesterol 101(H) <=99 mg/dL [facility] Comment: Reference range: ?? Optimal: ?<100 mg/dL ?? Near Optimal/Above Optimal: ?? 100-129 mg/dL ?? Borderline high: ?130-159 mg/dL ?? High: ? 160-189 mg/dL ?? Very high: ?>mk=587 mg/dL R[facility]MOND 2001: 285(19):4883-2187 Cholesterol/HDL Ratio 4.2 ratio [facility] MILLENNIUM Comment: A Cholesterol to HDL ratio below 4:1 is desirable. ??Studies suggest that increased CAD risk occurs at ratios above 5 for females and above 6 for men. ? [place] Heart Association ??(http://www.americanheart.org) ? Marizol Int Med, 1994; 121:641 ? AM J Med, 1998; 105(1A):48S Blood specimen (specimen) 03/23/2012 9:04 AM EDT 03/23/2012 9:09 AM EDT Narrative Resulting Agency Comment Spec In Lab Anup Hawkins MD CHEMISTRY ORDERAB LES Performing Organization Address [facility] Co de Phone Number BUSHRA [...] HEMATOLOGY ORDERA BLES Performing Organization Address [facility]/ZIP Co de Phone Number [facility] * (ABNORMAL) CBC (with Diff) (03/23/2012 9:04 AM EDT) [facility] White Blood Cell 5.2 4.0 - 10.0 x10(3)/mc L [facility] Red Blood Cell 3.97(L) 4.63 - 6.08 x10(6)/mc L [facility] Hemoglobin 11.5(L) 13.7 - 17.5 gm/dL [facility] Hematocrit 34.6(L) 40.0 - 51.0 % [facility] Mean Cell Volume 87.2 79.0 - 92.0 fL [facility] Mean Cell Hemoglobin 29.0 25.6 - 32.2 pg [facility] Mean Cell Hemoglobin Concentration 33.2 32.0 - 36.5 gm/dL [facility] MILLENNIUM Platelet 219 145 - 370 x10(3)/mc L [facility] RDW Standard Deviation 44.0 35.0 - 46.0 fL CERNER MILLENNIUM RDW coefficient of variation 13.8 10.9 - 14.4 % [facility] MILLENNIUM Mean Platelet Volume 9.0 9.0 - 12.0 fL [facility] MILLENNIUM Blood specimen (specimen) 03/23/2012 9:04 AM EDT 03/23/2012 9:09 AM EDT Narrative Resulting Agency Comment Spec In Lab Anup Hawkins MD HEMATOLOGY VJ DAMON [facility] * (ABNORMAL) CMP w/fasting Glucose (03/23/2012 9:04 AM EDT) [facility] Glucose Fasting 102(H) 65 - 99 mg/dL [facility] Comment: ?Fasting* Glucose Interpretive Criteria Normal ?65-99 [...] of Diabetes Mellitus, Position Statement from the [place] Diabetes Association. ??Diabetes Care, Volume 33, Supplement 1, Jul 2009 Blood Urea Nitrogen 33(H) 10 - 20 mg/dL [facility] MILLENNI[facility] Creatinine 1.70(H) 0.80 - 1.50 mg/dL [facility] MILL[facility]NI[facility] Comment: Please note that the pediatric reference intervals supplied above were not validated at [facility]. Results from pediatric [...] MD CHEMISTRY ORDERAB LES Performing Organization Address City/State/[facility] Co la Phone Number [facility] documented in this encounter Visit Diagnoses Diagnosis Transplanted kidney Kidney replaced by transplant Need for prophylactic immunotherapy documented in this encounter Care Teams Animal Caretaker Supervisor Relationship Specialty Start Date End Date Carroll Fuentes DO [address] [place] [address] PCP - General 09/23/11 10/20/22 documented as of this encounter
--- OUTSIDE RECORDS SUMMARY | 2024-05-23 13:40 | XMS_ITS | Encounter Summary ---
Author Organization [facility] Address [facility] [place] [address] Care Team Providers Care Air Conditioning Service Technician Name Role Phone AlfredoCarroll allison Primary Care Provider Encounter Details Date Type Department Care Team (Latest Contact Info) Description 01/21/2012 7:22 PM EDT - 01/21/2012 11:59 PM EDT [place] [address] Anup Hawkins MD [facility] [place] [address] Discharge Disposition: Home Social History Tobacco Use [...] (01/21/2012 10:50 AM EDT) Tacrolimus 4.0 ng/mL [facility] Comment:Trough therapeutic: 5-15 ng/mL Blood specimen (specimen) 01/21/2012 10:50 AM EDT 01/22/2012 7:57 AM EDT Narrative Resulting Agency Comment Spec In Lab Anup Hawkins MD CHEMISTRY ORDERAB LES [facility] documented in this encounter Visit Diagnoses Not on filedocumented in this encounter Care Teams Air Conditioning Service Technician Relationship Specialty Start Date End Date Carroll Fuentes DO [address] [place] [address] PCP - General 09/23/11 10/20/22 documented as of this encounter
--- OUTSIDE RECORDS SUMMARY | 2024-05-23 13:40 | XMS_ITS | Encounter Summary ---
[place] [address] Care Team Providers Care Physical Plant Employee Name Role Phone Carroll Fuentes DO Primary Care Provider Encounter Details Date Type Department Care Team (Late st Contact Info) Description 10/27/2011 External Results [place] [address] Social History Tobacco Use Types Packs/Day Years [...] filedocumented in this encounter Care Teams Physical Plant Employee Relationship Specialty Start Date End Date Carroll Fuentes DO [address] [place] [address] PCP - General 09/23/11 10/20/22 documented as of this encounter
--- OUTSIDE RECORDS SUMMARY | 2024-05-23 13:40 | XMS_ITS | Encounter Summary ---
Author Organization [facility] Address [facility] [place] [address] Care Team Providers Care Supervisor Line Department Name Role Phone Carroll Fuentes DO Primary Care Provider Encounter Details Date Type Department Care Team (Late st Contact Info) Description 04/15/2012 [place] [address] Fabiana Valenzuela PA [facility] [place] [address] Left leg DVT Anesthesia Record Procedure Summary [...] extremity documented in this encounter Care Teams Supervisor Line Department Relationship Specialty Start Date End Date Carroll Fuentes DO [address] [place] [address] PCP - General 09/23/11 10/20/22 documented as of this encounter
--- OUTSIDE RECORDS SUMMARY | 2024-05-23 13:40 | XMS_ITS | Encounter Summary ---
Author Organization [facility] Address [facility] [place] [address] Care Team Providers Care Diesel Engine Engineer Name Role Phone Carroll Fuentes DO Primary Care Provider Encounter Details Date Type Department Care Team (Late st Contact Info) Description 04/12/2012 [place] [address] Alfonzo Miles MD [facility] [place] [address] Social History Tobacco Use Types Packs/Day Years [...] filedocumented in this encounter Care Teams Diesel Engine Engineer Relationship Specialty Start Date End Date Carroll Fuentes DO [address] [place] [address] PCP - General 09/23/11 10/20/22 documented as of this encounter
--- OUTSIDE RECORDS SUMMARY | 2024-05-23 13:40 | XMS_ITS | Encounter Summary ---
Author Organization [facility] Address [facility] [place] [address] Care Team Providers Care Steam Hoist Operator Name Role Phone AlfredoCarroll allison Primary Care Provider [phone] Reason for Visit * Reason Onset Date Comments Other 01/21/2012 [facility] to pt w/ appl Encounter Details Date Type Department Care Team (Late st Contact Info) Description 01/21/2012 [place] [phone] Nanda Tao Other ([facility] to pt w/appl) [...] Reviewed process to apply directly to the [email or web address] company if cost is less for him.[facility] [id number] documented in this encounter Plan of Treatment Not on file documented as of this encounter Visit Diagnoses Not on filedocumented in this encounter Care Teams Steam Hoist Operator Relationship Specialty Start Date End Date Carroll Fuentes DO [address] [place] [address] [address] [place] [address] PCP - General 09/23/11 10/20/22 documented as of this encounter
--- OUTSIDE RECORDS SUMMARY | 2024-05-23 13:40 | XMS_ITS | Encounter Summary ---
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 [place] [address] [facility] [place] [address] Transplanted kidney; Need for prophylactic immunotherapy; Proteinuria [...] EDT Transplant Nephrology Follow Up Christy Ram [id number] Patient ID: Christy Ram is a [...] discussed different options with problems at length. explosives worker will contact him for additional help [...] on a pittance salary (hourly) from the [employer] [facility] [employer] working between 16-35 hours weekly. He barely has enough money to pay for food let alone meds. I will have our social food service specialist contact him, Skinny Chandra. * Kay Ph[address]s RD - 03/16/2012 12:23 PM EDT March 16, 2012 Christy Ram [id number] TRANSPLANT NUTRITION Post-transplant Clinic follow-up note Christy [...] immunosuppressives. I will ask Skinny Chandra our pediatric social worker to call him to see [...] Urine Dipstick Clear Clear CERNER MILLENNIUM Specific [place] Urine Automated 1.011 1.002 - 1.030 CERNER [...] 11.9 - 14.7 sec CERNER MILLENNIUM Comment: [facility] Transfusion Committee Guidelines: INR less than [...] MD HEMATOLOGY ORDERA BLES Performing Organization Address [facility]/ZIP Co de Phone Number [facility] * (ABNORMAL) APTT (03/16/2012 9:47 AM EDT) Partial Thromboplastin Time 37(H) 25 - 35 sec [facility] MILLENNIUM Comment: Recommended therapeutic PTT range for full dose unfractionated heparin is 80-114 seconds. Blood specimen (specimen) 03/16/2012 9:47 AM EDT 03/16/2012 9:53 AM EDT Narrative Resulting Agency Comment Spec In Lab Anup Hawkins MD HEMATOLOGY ORDERA BLES Performing Organization Address [facility] Co de Phone Number [facility] * Vitamin B12 (03/16/2012 9:47 AM EDT) Vitamin B12 421 207 - 974 pg/mL [facility] Blood specimen (specimen) 03/16/2012 9:47 AM EDT 03/16/2012 9:53 AM EDT Narrative Resulting Agency Comment Spec In Lab Anup Hawkins MD CHEMISTRY ORDERAB LES Performing Organization Address [facility] Co de Phone Number [facility] * (ABNORMAL) Iron and TIBC (03/16/2012 9:47 AM EDT) Iron 80 45 - 160 mcg/dL [facility] TIBC 212(L) 250 - 450 mcg/dL [facility] Iron Saturation 38 20 - 50 % [facility] MILLENNIUM Blood specimen (specimen) 03/16/2012 9:47 AM EDT 03/16/2012 9:53 AM EDT Narrative Resulting Agency Comment Spec In Lab Anup Hawkins MD CHEMISTRY ORDERAB LES Performing Organization Address [facility] Co de Phone Number [facility] * Folate, serum (03/16/2012 9:47 AM EDT) [facility] Folate 16.8 4.6 - 34.8 ng/mL [facility] Comment: Please note: Serum Folate Reference Range update 02/04/2012 1130 AM: New Range: 4.6 to 34.8 ng/ml Old Range: 7.4 to 35.0 ng/ml Blood specimen (specimen) 03/16/2012 9:47 AM EDT 03/16/2012 9:53 AM EDT Narrative Resulting Agency Comment Spec In Lab Anup Hawkins MD CHEMISTRY ORDERAB LES Performing Organization Address [facility] de Phone Number [facility] * Ferritin (03/16/2012 9:47 AM EDT) [facility] Ferritin 230 30 - 400 ng/mL [facility] Comment: Pediatric reference ranges not verified at [facility], interpret with caution. Reference ranges for females greater than 50 years of age approach values for men, i.e., 30-400 ng/mL. Blood specimen (specimen) 03/16/2012 9:47 AM EDT 03/16/2012 9:53 AM EDT Narrative Resulting Agency Comment Spec In Lab Anup Hawkins MD CHEMISTRY ORDERAB LES Performing Organization Address [facility] Co de Phone Number [facility] * (ABNORMAL) Comprehensive metabolic panel (non-fasting) (03/16/2012 9:47 AM EDT) [facility] Glucose 100 60 - 199 mg/dL [facility] Comment:Diabetes: >=200 mg/d L plus symptoms Blood Urea Nitrogen 38(H) 10 - 20 mg/dL [facility] Creatinine 1.86(H) 0.80 - 1.50 mg/dL [facility] MILLENNIUM Comment: Please note that the pediatric reference intervals supplied above were not validated at [facility]. Results from pediatric patients should be interpreted [...] Lab Anup Hawkins MD CHEMISTRY ORDERAB LES [facility] * Magnesium (03/16/2012 9:47 AM EDT) Magnesium 0.84 0.69 - 1.07 mmol/L [facility] Blood specimen (specimen) 03/16/2012 9:47 AM EDT 03/16/2012 9:53 AM EDT Narrative Resulting Agency Comment Spec In Lab Anup Hawkins MD CHEMISTRY ORDERAB LES [facility]ANNAN HUERTAFLORENCE [facility]AREI[facility] * Phosphorus (03/16/2012 9:47 AM EDT) Phosphorus 2.7 2.5 - 4.5 mg/dL [facility] Blood specimen (specimen) 03/16/2012 9:47 AM EDT 03/16/2012 9:53 AM EDT Narrative Resulting Agency Comment Spec In Lab Anup Hawkins MD CHEMISTRY ORDERAB LES Performing Organization Address City/[facility] Co de Phone Number [facility]ER[facility]AN[facility] * Uric acid (03/16/2012 9:47 AM EDT) Uric Acid 5.5 3.5 - 8.5 mg/dL [facility] Blood specimen (specimen) 03/16/2012 9:47 AM EDT 03/16/2012 9:53 AM EDT Narrative Resulting Agency Comment Spec In Lab Anup Hawkins MD CHEMISTRY ORDERAB LES Performing Organization Address [facility] Co de Phone Number [facility] HU[facility]NI[facility] * Tacrolimus level (03/16/2012 9:47 AM EDT) Tacrolimus 3.1 ng/mL [facility] Comment:Trough therapeutic: 5-15 ng/mL Blood specimen (specimen) 03/16/2012 9:47 AM EDT 03/16/2012 11:44 AM EDT Narrative Resulting Agency Comment Spec In Lab Anup Hawkins MD CHEMISTRY ORDERAB LES Performing Organization Address [facility] de Phone Number [facility]ERSHANNAN HUERTAENNI[facility] * Reticulocyte [...] MD HEMATOLOGY ORDERA BLES Performing Organization Address [facility]/ZIP Co de Phone Number [facility] * (ABNORMAL) CBC (with Diff) (03/16/2012 9:47 [...] Anup Hawkins MD HEMATOLOGY ORDERA BLES [facility]AFL[facility] * Cholesterol, total (03/16/2012 9:47 AM EDT) Cholesterol, Total 147 <=199 mg/dL [facility]ILL[facility]NI[facility] Comment: Recommendations of the NCEP Adult Treatment Panel for the following risk cutoff thresholds for the [place] population: Desirable: <200 mg/dL Borderline High: 200-239 mg/dL High: > or = 240 mg/dL Blood specimen (specimen) 03/16/2012 9:47 AM EDT 03/16/2012 9:53 AM EDT Narrative Resulting Agency Comment Spec In Lab Anup Hawkins MD CHEMISTRY ORDERAB LES Performing Organization Address City/State/[facility] Co de Phone Number [facility] documented in this encounter Visit Diagnoses Diagnosis Transplanted kidney Kidney replaced by transplant Need for prophylactic immunotherapy Proteinuria documented in this encounter Care Teams Educational Administration Teacher Relationship Specialty Start Date End Date Carroll Fuentes DO [address] [place] [address] PCP - General 09/23/11 10/20/22 documented as of this encounter
--- OUTSIDE RECORDS SUMMARY | 2024-05-23 13:40 | XMS_ITS | Encounter Summary ---
Author Organization [facility] [place] [address] Care Team Providers Care Mayonnaise Mixer Name Role Phone AlfredoCarroll allison Primary Care Provider [phone] Reason for Visit * Reason Onset Date Comments Other 01/19/2012 MAP-Appl to Co Encounter Details Date Type Department Care Team (Late st Contact Info) Description 01/19/2012 [place] [phone] Nanda Tao Other (MAP-Appl to Co) Social [...] Portillo and will be faxed [facility] to [facility] [id number] documented in this encounter Plan of Treatment Not on file documented as of this encounter Visit Diagnoses Not on filedocumented in this encounter Care Teams Mayonnaise Mixer Relationship Specialty Start Date End Date Carroll Fuentes DO [address] [facility] [address] [place] [address] PCP - General 09/23/11 10/20/22 documented as of this encounter
--- OUTSIDE RECORDS SUMMARY | 2024-05-23 13:40 | XMS_ITS | Encounter Summary ---
[place] [address] Care Team Providers Care Nurses' Association Counselor Name Role Phone Carroll Fuentes DO Primary Care Provider Encounter Details Date Type Department Care Team (Late st Contact Info) Description 10/07/2011 External Results [place] [address] Social History Tobacco Use Types Packs/Day Years [...] on filedocumented in this encounter Care Teams Nurses' Association Counselor Relationship Specialty Start Date End Date Carroll Fuentes DO [address] [place] [address] PCP - General 09/23/11 10/20/22 documented as of this encounter
--- OUTSIDE RECORDS SUMMARY | 2024-05-23 13:40 | XMS_ITS | Encounter Summary ---
Author Organization [facility] [place] [address] Care Team Providers Care Continuous Absorption Process Operator Name Role Phone AlfredoCarroll allison Primary Care Provider [phone] Reason for Visit * Reason Onset Date Comments Other 12/18/2011 Medication quest ion Encounter Details Date Type Department Care Team (Late st Contact Info) Description 12/18/2011 Telephone [place] [phone] Janeth Nixon RN Other (Medication question) Social [...] 5:29 PM EDT 12/17/11 @ 5:20 PM enrollment coordinator note: Received call from Adama asking approval to use OTC Zyrtec for his allergies Intervention: Approval given to Adama. Notified him that antihistamines are safe post txp but not decongestants. documented in this encounter Plan of Treatment Not on file documented as of this encounter Visit Diagnoses Not on filedocumented in this encounter Care Teams Continuous Absorption Process Operator Relationship Specialty Start Date End Date Carroll Fuentes DO [address] [place] [address] PCP - General 09/23/11 10/20/22 documented as of this encounter
--- OUTSIDE RECORDS SUMMARY | 2024-05-23 13:40 | XMS_ITS | Encounter Summary ---
Author Organization [facility] [place] [address] Care Team Providers Care Ent Nurse Name Role Phone Carroll Fuentes DO Primary Care Provider [phone] Reason for Visit * Reason Onset Date Comments Other 02/03/2012 [employer] entered -script to Encounter Details Date Type Department Care Team (Late st Contact Info) Description 02/03/2012 [place]phone [place] [phone] Nanda Tao Other (K[employer] entered-script to ) Social History Tobacco Use [...] Nanda Tao - 02/03/2012 4:06 PM EDT Kontagent entered-script to Dr Suarez entered annual application online for prograf. Sent prescription to [facility] for Dr. Ross barreto.[facility] [id number] documented in this encounter Plan of Treatment Not on file documented as of this encounter Visit Diagnoses Not on filedocumented in this encounter Care Teams Ent Nurse Relationship Specialty Start Date End Date Carroll Fuentes DO [address] [facility] [address] [place] [address] PCP - General 09/23/11 10/20/22 documented as of this encounter
--- OUTSIDE RECORDS SUMMARY | 2024-05-23 13:40 | XMS_ITS | Encounter Summary ---
[place] [address] Care Team Providers Care Manager Of Construction Name Role Phone AlfredoCarroll allison Primary Care Provider [phone] Reason for Visit * Reason Onset Date Comments Skin Lesion 03/23/2012 rt. shoulder Encounter Details Date Type Department Care Team (Late st Contact Info) Description 03/23/2012 Telephone [place] [phone] Janeth Nixon RN Skin Lesion (rt. shoulder) [...] a skin biopsy. 03/23/12 @ 11:10 A.M. marketing research coordinator note: Spoke with Adama- reports that [...] in this encounter Care Teams Manager Of Construction Relationship Specialty Start Date End Date Carroll Fuentes DO [address] [place] [address] PCP - General 09/23/11 10/20/22 documented as of this encounter
--- OUTSIDE RECORDS SUMMARY | 2024-05-23 13:40 | XMS_ITS | Encounter Summary ---
[place] [address] Care Team Providers Care Power Shovel Mechanic Name Role Phone Carroll Fuentes Primary Care Provider Encounter Details Date Type Department Care Team (Late st Contact Info) Description 01/05/2012 Telephone [place] [phone] Janeth Nixon, RN Social History Tobacco Use [...] Is it safe? Thanks, Laurie 01/05/12 @ [facility] registration coordinator note: After conferring with Dr. Hawkins, notified Mr. Ram that Doxycycline is a safe antibiotic to take post kidney txp. States that his cold turned into a lung infection. documented in this encounter Plan of Treatment Not on file documented as of this encounter Visit Diagnoses Not on filedocumented in this encounter Care Teams Power Shovel Mechanic Relationship Specialty Start Date End Date Carroll Fuentes DO [address] [place] [address] [address] [facility] 1 [place] [address] PCP - General 09/23/11 10/20/22 documented as of this encounter
--- OUTSIDE RECORDS SUMMARY | 2024-05-23 13:40 | XMS_ITS | Encounter Summary ---
Author Organization [facility] Address [facility] [place] [address] Care Team Providers Care Hog Confinement System Manager Name Role Phone Carroll Fuentes DO Primary Care Provider [phone] Reason for Visit * Reason Onset Date Comments Medication Refill 01/22/2012 Encounter Details Date Type Department Care Team (Late st Contact Info) Description 01/22/2012 Refill [place] [address] [facility] [place] [address] HTN (hypertension) (Primary Dx) Social History Tobacco [...] hypertension documented in this encounter Care Teams Hog Confinement System Manager Relationship Specialty Start Date End Date Carroll Fuentes DO [address] [place], [place] [address] PCP - General 09/23/11 10/20/22 documented as of this encounter
--- OUTSIDE RECORDS SUMMARY | 2024-05-23 13:40 | XMS_ITS | Encounter Summary ---
Author Organization Replaced By [facility] Address [facility] [place] [address] Care Team Providers Care Oil Winterizer Name Role Phone AlfredoCarroll allison Primary Care Provider [phone] Reason for Visit * Reason Comments Kidney Transplant Follow-up Nephropathy recurrent in the gra ft Encounter Details Date Type Department Care Team (Late st Contact Info) Description 09/23/2011 10:30 AM EDT Follow-Up Solid [place] [phone] Anup Hawkins MD [facility] [place] [address] Need for prophylactic immunotherapy; S/P kidney transplant [...] ??? Appearance UA Clear Clear ??? Spec [place] UA 1.007 1.002 - 1.030 ??? 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 and gave him the web sites about [...] AM EDT Anup Hawkins MD [facility] CERNER MILLENNIUM * (ABNORMAL) Comprehensive metabolic panel [...] MD CHEMISTRY ORDERAB LES Performing Organization Address [facility] Co de Phone Number CERNER MILLENNIUM * Uric acid (09/23/2011 9:45 AM EDT) Uric Acid 5.5 3.5 - 8.5 mg/dL CERNER MILLENNIUM Blood specimen (specimen) 09/23/2011 9:45 AM EDT 09/23/2011 9:58 AM EDT Narrative Resulting Agency Comment Spec In Lab Anup Hawkins MD CHEMISTRY ORDERAB LES Performing Organization Address [facility] Co de Phone Number CERNER MILLENNIUM * Tacrolimus level (09/23/2011 9:45 AM EDT) Tacrolimus 4.0 ng/mL CERNER MILLENNIUM Comment:Trough therapeutic: 5-15 ng/mL Blood specimen (specimen) 09/23/2011 9:45 AM EDT 09/23/2011 11:56 AM EDT Narrative Resulting Agency Comment Spec In Lab Anup Hawkins MD CHEMISTRY ORDERAB LES Performing Organization Address [facility]/ZIP Co de Phone Number CERNER MILLENNIUM [...] Lab Anup Hawkins MD HEMATOLOGY ORDERA BLES [facility] * (ABNORMAL) CBC (with Diff) (09/23/2011 [...] BLES Performing Organization Address [facility] Co de Phone Number BUSHRA DOYLE * Cholesterol, total (09/23/2011 9:45 AM EDT) Cholesterol, Total 158 <=199 mg/dL [facility] Comment: Recommendations of the NCEP Adult Treatment Panel for the following risk cutoff thresholds for the [place] population: Desirable: <200 mg/dL Borderline High: 200-239 mg/dL High: > or = 240 mg/dL Blood specimen (specimen) 09/23/2011 9:45 AM EDT 09/23/2011 9:58 AM EDT Narrative Resulting Agency Comment Spec In Lab Anup Hawkins MD CHEMISTRY ORDERAB LES Performing Organization Address [facility] de Phone Number BUSHRA SIMONIUM * (ABNORMAL) TSH (09/23/2011 9:45 AM EDT) Thyroid Stimulating Hormone 6.69(H) 0.27 - 4.20 mcIU/mL [facility] Blood specimen (specimen) 09/23/2011 9:45 AM EDT 09/23/2011 9:58 AM EDT Narrative Resulting Agency Comment Spec In Lab Anup Hawkins MD CHEMISTRY ORDERAB LES Performing Organization Address [facility] Co de Phone Number BUSHRA SIMONIUM * APTT (09/23/2011 9:45 AM EDT) Partial Thromboplastin Time 32 25 - 35 sec [facility] Comment: Recommended therapeutic PTT range for full dose unfractionated heparin is 80-114 seconds. Blood specimen (specimen) 09/23/2011 9:45 AM EDT 09/23/2011 9:58 AM EDT Narrative Resulting Agency Comment Spec In Lab Anup Hawkins MD HEMATOLOGY ORDERA BLES Performing Organization Address [facility] Co de Phone Number CERSHANNAN HUERTAENNIUM * (ABNORMAL) Prothrombin Time (09/23/2011 9:45 AM EDT) Prothrombin Time 22.7(H) 11.9 - 14.7 sec CERNER MILLENNIUM Comment: [facility] Transfusion Committee Guidelines: INR less than [...] BLES Performing Organization Address [facility] Co de Phone Number [...] Urine Dipstick Clear Clear CERNER MILLENNIUM Specific [place] Urine Automated 1.007 1.002 - 1.030 CERNER [...] transplant documented in this encounter Care Teams Oil Winterizer Relationship Specialty Start Date End Date Carroll Fuentes DO [address] [place] [address] PCP - General 09/23/11 10/20/22 documented as of this encounter
--- OUTSIDE RECORDS SUMMARY | 2024-05-23 13:40 | XMS_ITS | Encounter Summary ---
Author Organization [facility] Address [facility] [place] [address] Care Team Providers Care Disbursing Officer Name Role Phone AlfredoCarroll allison Primary Care Provider Encounter Details Date Type Department Care Team (Latest Contact Info) Description 10/23/2011 6:48 PM EDT - 10/23/2011 11:59 PM EDT Hospital En[place] [address] Anup Hawkins MD [facility] [place] [address] Discharge Disposition: Home Social History Tobacco Use [...] 6:55 PM EDT) Tacrolimus 3.5 ng/mL [facility] Comment:Trough therapeutic: 5-15 ng/mL Blood specimen (specimen) 10/23/2011 6:55 PM EDT 10/26/2011 8:09 AM EDT Narrative Resulting Agency Comment Spec In Lab Anup Hawkins MD CHEMISTRY ORDERAB LES [facility] documented in this encounter Visit Diagnoses Not on filedocumented in this encounter Care Teams Disbursing Officer Relationship Specialty Start Date End Date Carroll Fuentes DO [address] [place] [address] PCP - General 09/23/11 10/20/22 documented as of this encounter
--- OUTSIDE RECORDS SUMMARY | 2024-05-23 13:40 | XMS_ITS | Encounter Summary ---
Author Organization [facility] Address [facility] [place] [address] Care Team Providers Care Refrigerated Cargo Clerk Name Role Phone Carroll Fuentes DO Primary Care Provider [phone] Reason for Visit * Reason Comments Medication Refill Encounter Details Date Type Department Care Team (Late st Contact Info) Description 04/18/2012 [place] [address] Alfonzo Miles MD [facility] [place] [address] Social History Tobacco Use Types Packs/Day Years [...] on filedocumented in this encounter Care Teams Refrigerated Cargo Clerk Relationship Specialty Start Date End Date Carroll Fuentes DO [address] [place] [address] PCP - General 09/23/11 10/20/22 documented as of this encounter
--- OUTSIDE RECORDS SUMMARY | 2024-05-23 13:40 | XMS_ITS | Encounter Summary ---
Author Organization [facility] Address [facility] [place] [address] Care Team Providers Care Feed Grinder Name Role Phone AlfredoCarroll allison Primary Care Provider [phone] Encounter Details Date Type Department Care Team (Latest Contact Info) Description 03/23/2012 8:25 AM EDT - 03/23/2012 11:59 PM EDT [place] [address] Anup Hawkins MD [facility] [place] [address] Transplanted kidney; Need for prophylactic immunotherapy Discharge [...] Lab Anup Hawkins MD CHEMISTRY ORDERAB LES [facility] TouchTenENNIUM * Uric acid, urine, 24 hour (03/23/2012 10:06 AM EDT) U24 Uric Conc 8.3 mg/dL CERNER MILLENNIUM Uric Acid, 24 Hour Urine 0.32 0.25 - 0.80 gm/24hr CERNER MILLENNIUM Urine specimen (specimen) 03/23/2012 10:06 AM EDT 03/23/2012 10:06 AM EDT Narrative Resulting Agency Comment Spec In Lab Anup Hawkins MD URINE ORDERABLES Performing Organization Address City/[facility]/ZIP Co de Phone Number CERNER MILLENNIUM * Phosphorus, urine, 24 hour (03/23/2012 10:06 AM EDT) Phosphorus Concentration, U24 20.9 mg/dL CERNER MILLENNIUM Phosphorus, 24 Hour Urine 0.8 0.4 - 1.3 gm/24hr CERNER MILLENNIUM Urine specimen (specimen) 03/23/2012 10:06 AM EDT 03/23/2012 10:06 AM EDT Narrative Resulting Agency Comment Spec In Lab Anup Hawkins MD URINE ORDERABLES Performing Organization Address [facility] Co de Phone Number CERNER MILLENNIUM [...] Hawkins MD URINE ORDERABLES Performing Organization Address City/[facility] Co de Phone Number CERNER MILLENNIUM * Creatinine, urine, 24 hour (03/23/2012 10:06 AM EDT) Cre Concentration, U24 38 mg/dL CERNER MILLENNIUM Creatinine, 24 Hour Urine 1.44 0.80 - 1.90 gm/24hr CERNER MILLENNIUM Urine specimen (specimen) 03/23/2012 10:06 AM EDT 03/23/2012 10:06 AM EDT Narrative Resulting Agency Comment Spec In Lab Anup Hawkins MD URINE ORDERABLES Performing Organization Address City/[facility]/ZIP Co de Phone Number CERSHANNAN HUERTAENNIUM * [...] URINE ORDERABLES Performing Organization Address [facility] Co de Phone Number CERSHANNAN HUERTAENNIUM * (ABNORMAL) Protein, urine, 24 hour (03/23/2012 10:06 AM EDT) Protein Concentration, U24 82(H) <=80 mg/dL CERNER MILLENNIUM Protein, 24 Hour Urine 3.12(H) <=0.15 gm/24hr CERNER MILLENNIUM Urine specimen (specimen) 03/23/2012 10:06 AM EDT 03/23/2012 10:06 AM EDT Narrative Resulting Agency Comment Spec In Lab Anup Hawkins MD URINE ORDERABLES Performing Organization Address City/[facility] Co de Phone Number BUSHRA HUERTAENNIUM * BK QUANT URINE RESULT (03/23/2012 9:22 AM EDT) BKV Urine Result Not Detected [facility] MILLENNIUM BKV Urine Interp BK Virus Urine [...] DNA isolated from urine was performed using [employer] BKV(ASR) reagents and the Applied V-cube [place] 7500 Fast Real-Time PCR System. In addition, the PCR product sequence is confirmed using physical properties (melt curve analysis). This test was developed and its performance determined by the [facility] Molecular Pathology Laboratory. It has not been cleared or approved by the U.S. Food and Drug Administration. This test is used for clinical purposes and should not be considered investigational or for research purposes. The Molecular Pathology Laboratory is certified by the Clinical Laboratory Improvement Act of 1988 and as such is allowed to perform high complexity clinical testing. [facility]RAN[facility] Comment: [VERIFIED DATE]03.24.12 Verified By:Keli Cohen (Electronic Signature) Urine specimen (specimen) 03/23/2012 9:22 AM EDT 03/23/2012 10:18 AM EDT Narrative Resulting Agency Comment Spec In Lab Anup Hawkins MD HEMATOLOGY ORDERA BLES Performing Organization Address [facility] Co de Phone Number [facility] TouchTenLA [facility] * Phosphorus, urine, random (03/23/2012 9:22 AM EDT) Phosphorus, Urine 32.8 mg/dL [facility] TouchTenLA [facility] Urine specimen (specimen) 03/23/2012 9:22 AM EDT 03/23/2012 9:26 AM EDT Narrative Resulting Agency Comment Spec In Lab Anup Hawkins MD URINE ORDERABLES Performing Organization Address [facility] Co de Phone Number [facility] TouchTenLA [facility] * Calcium Creatinine Ratio, random urine (03/23/2012 9:22 AM EDT) Calcium, Urine 0.5 mg/dL CODIWV R MILLENNIUM Creatinine, Urine 80 mg/dL CERNER MILLENNIUM Calcium / Creatinine Ratio, Urine 0.01 ratio CERNER MILLENNIUM Urine specimen (specimen) 03/23/2012 9:22 AM EDT 03/23/2012 9:26 AM EDT Narrative Resulting Agency Comment Spec In Lab Anup Hawkins MD URINE ORDERABLES Performing Organization Address [facility]/ZIP Co de Phone Number CERNER MILLENNIUM * [...] Urine Dipstick Clear Clear CERNER MILLENNIUM Specific Ophiem Urine Automated 1.011 1.002 - 1.030 CERNER [...] Absolute 0.00 0.00 - 0.05 x10(3)/mc L [facility] MILLENNIUM Blood specimen (specimen) 03/23/2012 9:04 AM EDT 03/23/2012 9:09 AM EDT Anup Hawkins MD HEMATOLOGY ORDERA BLES [facility] * VIT D Total Evaluation (03/23/2012 [...] MD CHEMISTRY ORDERAB LES Performing Organization Address City/[facility] Co de Phone Number [facility] UseTogether * 1,25-dihydroxycholecalciferol (03/23/2012 9:04 AM EDT) Vit D 1,25 Dihydroxy (NOVEMBER) 32 18 - 64 pg/mL CERNER MILLENNIUM Comment: Test Performed by: [place] [address] Communication Consultant: Herber Tomas III, M.D. Blood specimen (specimen) 03/23/2012 9:04 AM EDT 03/23/2012 10:59 AM EDT Narrative Resulting Agency Comment Spec In Lab Anup Hawkins MD LAB SEND OUT ORDE RABLES Performing Organization Address [facility] Co de Phone Number AssurzSHANNAN LED EnginIUM * PTH (03/23/2012 9:04 AM EDT) Parathyroid Hormone 59 15 - 65 pg/mL CERNER MILLENNIUM Blood specimen (specimen) 03/23/2012 9:04 AM EDT 03/23/2012 9:09 AM EDT Narrative Resulting Agency Comment Spec In Lab Anup Hawkins MD CHEMISTRY ORDERAB LES Performing Organization Address City/[facility] Co de Phone Number [facility] LED EnginIUM * Tacrolimus level (03/23/2012 9:04 AM EDT) Tacrolimus 6.5 ng/mL CERNER MILLENNIUM Comment:Trough therapeutic: 5-15 ng/mL Blood specimen (specimen) 03/23/2012 9:04 AM EDT 03/23/2012 11:48 AM EDT Narrative Resulting Agency Comment Spec In Lab Anup Hawkins MD CHEMISTRY ORDERAB LES Performing Organization Address City/[facility] Co de Phone Number CERSHANNAN SIMONIUM * Uric acid (03/23/2012 9:04 AM EDT) Uric Acid 5.6 3.5 - 8.5 mg/dL CERNER MILLENNIUM Blood specimen (specimen) 03/23/2012 9:04 AM EDT 03/23/2012 9:09 AM EDT Narrative Resulting Agency Comment Spec In Lab Anup Hawkins MD CHEMISTRY ORDERAB LES Performing Organization Address [facility] Co de Phone Number [facility] BRADLEYENNIUM * Phosphorus (03/23/2012 9:04 AM EDT) Phosphorus 2.9 2.5 - 4.5 mg/dL [facility] MILLENNIUM Blood specimen (specimen) 03/23/2012 9:04 AM EDT 03/23/2012 9:09 AM EDT Narrative Resulting Agency Comment Spec In Lab Anup Hawkins MD CHEMISTRY ORDERAB LES Performing Organization Address City/[facility] Co de Phone Number CERSHANNAN HUERTAENNIUM * Magnesium (03/23/2012 9:04 AM EDT) Magnesium 0.80 0.69 - 1.07 mmol/L CERNER MILLENNIUM Blood specimen (specimen) 03/23/2012 9:04 AM EDT 03/23/2012 9:09 AM EDT Narrative Resulting Agency Comment Spec In Lab Anup Hawkins MD CHEMISTRY ORDERAB LES Performing Organization Address City/[facility] Co de Phone Number CERSHANNAN HUERTAENNIUM * (ABNORMAL) Lipid panel (fasting) (03/23/2012 9:04 AM EDT) [facility] Signature Cholesterol, Total 158 <=199 mg/dL CERNER MILLENNIUM Comment: Recommendations of the NCEP Adult Treatment Panel for the following risk cutoff thresholds for the [place] population: Desirable: <200 mg/dL Borderline High: 200-239 mg/dL High: > or = 240 mg/dL Triglyceride 94 <=149 mg/dL CERNER MILLENNIUM Comment: Reference Range: Normal triglycerides: ??<150 mg/dL Borderline high: ??150-199 mg/dL High: ??200-499 mg/dL Very high: ??>jd=338 mg/dL RAYMOND 2001; 285(19):6029-3690 HDL Cholesterol 38(L) >=40 mg/dL CER NER MILLENNIUM Comment: Reference range: ??Low HDL: ?? < 40 mg/dL ??Normal: ?40-60 mg/dL ??Desirable: > 60 mg/dL RAYMOND 2001; 285(19):2523-0102 LDL Cholesterol 101(H) <=99 mg/dL CER NER MILLENNIUM Comment: Reference range: ?? Optimal: ?<100 mg/dL ?? Near Optimal/Above Optimal: ?? 100-129 mg/dL ?? Borderline high: ?130-159 mg/dL ?? High: ? 160-189 mg/dL ?? Very high: ?>ms=589 mg/dL RAYMOND 2001: 285(19):5987-2796 Cholesterol/HDL Ratio 4.2 ratio CERNER MILLENNIUM Comment: A Cholesterol to HDL ratio below 4:1 is desirable. ??Studies suggest that increased CAD risk occurs at ratios above 5 for females and above 6 for men. ? [place] Heart Association ??(http://www.americanheart.org) ? Marizol Int Med, [...] BLES Performing Organization Address [facility] Co de Phone Number CERNER MILLENNIUM [...] of Diabetes Mellitus, Position Statement from the [place] Diabetes Association. ??Diabetes Care, Volume 33, Supplement 1, Jul 2009 Blood Urea Nitrogen 33(H) 10 - 20 mg/dL CERNER MILLENNIUM Creatinine 1.70(H) 0.80 - 1.50 mg/dL CERNER MILLENNIUM Comment: Please note that the pediatric reference intervals supplied above were not validated at [facility]. Results from pediatric patients [...] Performing Organization Address City/State/[facility] Co ne Phone Number [facility] documented in this encounter Visit Diagnoses Diagnosis Transplanted kidney Kidney replaced by transplant Need for prophylactic immunotherapy documented in this encounter Care Teams Feed Grinder Relationship Specialty Start Date End Date Carroll Fuentes DO [address] [place] [address] PCP - General 09/23/11 10/20/22 documented as of this encounter
--- OUTSIDE RECORDS SUMMARY | 2024-05-23 13:40 | XMS_ITS | Encounter Summary ---
Author Organization [facility] Address [facility] [place] [address] Care Team Providers Care Yarding Supervisor Name Role Phone AlfredoCarroll allison Primary Care Provider [phone] Encounter Details Date Type Department Care Team (Latest Contact Info) Description 11/24/2011 7:01 PM EDT - 11/24/2011 11:59 PM EDT [place] [address] Anup Hawkins MD [facility] [place] [address] Discharge Disposition: Home Social History Tobacco Use [...] 9:05 AM EDT) Tacrolimus 4.9 ng/mL [facility] Comment:Trough therapeutic: 5-15 ng/mL Blood specimen (specimen) 11/24/2011 9:05 AM EDT 11/25/2011 8:02 AM EDT Narrative Resulting Agency Comment Spec In Lab Anup Hawkins MD CHEMISTRY ORDERAB LES [facility] documented in this encounter Visit Diagnoses Not on filedocumented in this encounter Care Teams Yarding Supervisor Relationship Specialty Start Date End Date Carroll Fuentes DO [address] [place] [address] PCP - General 09/23/11 10/20/22 documented as of this encounter
--- OUTSIDE RECORDS SUMMARY | 2024-05-23 13:40 | XMS_ITS | Encounter Summary ---
Author Organization [facility] Address [facility] [place] [address] Care Team Providers Care Turner Off Name Role Phone Carroll Fuentes DO Primary Care Provider Encounter Details Date Type Department Care Team (Latest Contact Info) Description 04/19/2012 12:56 PM EDT - 04/19/2012 6:20 PM EDT Hospital Encounter [place] [id number] Sabrina Sanchez MD [facility] [place] [address] Left leg DVT Discharge Disposition: Home Social [...] Sanchez MD - 04/19/2012 5:02 PM EDT [facility] [place] Note Patient Name: Christy Ambrose : [id number] MR#: [id number] Case Date: 04/19/2012 Surgeon: Surgeon(s) and Role: [...] pathologic frozen section analysis. We also took territory service representative sections around the existing margin [...] well. CPT codes for the procedure were 78310 and 09540. * OR Attestation - Sabrina Sanchez MD - 04/19/2012 3:53 PM EDT Attestation: Case Date: 04/19/2012 I was present and I participated during the entire procedure (does not need to include opening and closing). SABRINA SANCHEZ MD 04/19/2012 * Brief Op Note - Sabrina Sanchez MD - 04/19/2012 3:52 PM EDT Brief Operative Note Patient Name: Christy Ambrose : [id number] MR#: [id number] Case Date: 04/19/2012 Surgeon: Surgeon(s) and Role: [...] MD PATHOLOGY/CYTOLOGY O UMESH Performing Organization Address [facility] de Phone Number [facility] * Specimen to Pathology (surgical or derm) (04/19/2012 3:14 PM EDT) AP Specimen 04/19/2012 3:14 PM EDT 04/19/2012 3:14 PM EDT Narrative BUSHRA DOYLE - 04/19/2012 3:14 PM EDT Specimen requisition ordered. ??Separate Pathology report to follow Sabrina Sanchez MD PATHOLOGY/CYTOLOGY O UMESH Performing Organization Address [facility] de Phone Number [facility] * Specimen to Pathology (surgical or derm) (04/19/2012 3:14 PM EDT) AP Specimen 04/19/2012 3:14 PM EDT 04/19/2012 3:14 PM EDT Narrative BUSHRA DOYLE - 04/19/2012 3:14 PM EDT Specimen requisition ordered. ??Separate Pathology report to follow Sabrina Sanchez MD PATHOLOGY/CYTOLOGY John CALVO Performing Organization Address [facility] de Phone Number BUSHRA DOYLE * Specimen to Pathology (surgical or derm) (04/19/2012 3:14 PM EDT) AP Specimen 04/19/2012 3:14 PM EDT 04/19/2012 3:14 PM EDT Narrative BUSHRA DOYLE - 04/19/2012 3:14 PM EDT Specimen requisition ordered. ??Separate Pathology report to follow Sabrina Sanchez MD PATHOLOGY/CYTOLOGY O UMESH Performing Organization Address [facility] de Phone Number [facility] * SURGICAL PATHOLOGY REPORT (04/19/2012 3:07 PM EDT) Surgical Pathology Report ? [facility] ? Provider: ?? SABRINA SANCHEZ ? Pt. Name: ?? CHRISTY AMBROSE ? Acc #: ?[id number] ? Pt. ? Col Date: ?? 04/19/2012 [...] completely excised in these ? sections. ? [facility] ? Provider: ?? SABRINA SANCHEZ ? Pt. Name: ?? CHRISTY AMBROSE ? Acc #: ?[id number] ? Pt. ? Col Date: ?? 04/19/2012 [...] x 0.1 cm. ? Tissue Description: ?? [place] fragment of skin with blue ink designating ? old margin. ? Sections/Processing: ??Submitted for frozen section. ??The frozen section ? residue, which is the entire specimen, is submitted ? in (B1). ??(T1) ? [facility] ? Provider: ?? SABRINA SANCHEZ ? Pt. Name: ?? CHRISTY AMBROSE ? Acc #: ?[id number] ? Pt. ? Col Date: ?? 04/19/2012 [...] Clinical History/Diagnosis: ? BCC right shoulder CERNER [facility] 04/19/2012 3:07 PM EDT Sabrina Sanchez MD PATHOLOGY/CYTOLOGY O RDERABLES [facility] * FROZEN SECTION REPORT (04/19/2012 3:07 PM EDT) Frozen Section Report ? [facility] ? Provider: ?? SABRINA SANCHEZ ? Pt. Name: ?? CHRISTY AMBROSE ? Acc #: ?[id number] ? Pt. ? Col Date: ?? 04/19/2012 [...] and special studies, if ? any. [facility] 04/19/2012 3:07 PM EDT Sabrina Sanchez MD PATHOLOGY/CYTOLOGY O UMESH Performing Organization Address [facility] de Phone Number [facility] * Specimen to Pathology (surgical or derm) (04/19/2012 3:04 PM EDT) AP Specimen 04/19/2012 3:04 PM EDT 04/19/2012 3:04 PM EDT Narrative [facility] - 04/19/2012 3:04 PM EDT Specimen requisition ordered. ??Separate Pathology report to follow Sabrina Sanchez MD PATHOLOGY/CYTOLOGY O UMESH Performing Organization Address [facility] Co de Phone Number [facility] * (ABNORMAL) Prothrombin Time (04/19/2012 1:14 PM EDT) Prothrombin Time 19.0(H) 11.9 - 14.7 sec BUSHRA SIMONIUM Comment: [facility] Transfusion Committee Guidelines: INR less than [...] used.) documented in this encounter Care Teams Turner Off Relationship Specialty Start Date End Date Carroll Fuentes DO [address] [place] [address] PCP - General 09/23/11 10/20/22 documented as of this encounter
--- OUTSIDE RECORDS SUMMARY | 2024-05-23 13:40 | XMS_ITS | Encounter Summary ---
[place] [address] Care Team Providers Care Grain Elevator Motor Starter Name Role Phone Unknown Primary Care Provider Unavailabl e Encounter Details Date Type Department Care Team (Late st Contact Info) Description 09/09/2011 External Results Solid [place] [address] Social History Tobacco Use Types Packs/Day Years [...] on filedocumented in this encounter Care Teams Grain Elevator Motor Starter Relationship Specialty Start Date End Date Unknown None PCP - General 07/21/11 09/22/11 documented as of this encounter
--- OUTSIDE RECORDS SUMMARY | 2024-05-23 13:40 | XMS_ITS | Encounter Summary ---
Author Organization [facility] Address [facility] [place] [address] Care Team Providers Care Hat Binder Name Role Phone Unknown Primary Care Provider Unavailabl e Encounter Details Date Type Department Care Team (Latest Contact Info) Description 09/04/2011 6:32 PM EST - 09/04/2011 11:59 PM [facility] Hospital [place] [address] Anup Hawkins MD [facility] [place] [address] Discharge Disposition: Home Social History Tobacco Use [...] Anup Hawkins MD CHEMISTRY ORDERAB LES [facility] documented in this encounter Visit Diagnoses Not on filedocumented in this encounter Care Teams Hat Binder Relationship Specialty Start Date End Date Unknown None PCP - General 07/21/11 09/22/11 documented as of this encounter
--- OUTSIDE RECORDS SUMMARY | 2024-05-23 13:40 | XMS_ITS | Encounter Summary ---
Author Organization [facility] Address [facility] [place] [address] Care Team Providers Care News Specialist Name Role Phone Carroll Fuentes DO Primary Care Provider Reason for Visit * Reason Onset Date Comments Medication Refill 02/15/2012 Encounter Details Date Type Department Care Team (Late st Contact Info) Description 02/15/2012 Refill [place] [address] Anup Hawkins MD [facility] [address] [place] [address] HTN (hypertension) (Primary Dx) Social History Tobacco [...] hypertension documented in this encounter Care Teams News Specialist Relationship Specialty Start Date End Date Carroll Fuentes DO [address] [place], [place] [address] PCP - General 09/23/11 10/20/22 documented as of this encounter
--- OUTSIDE RECORDS SUMMARY | 2024-05-23 13:40 | XMS_ITS | Encounter Summary ---
Author Organization [facility] Address [facility] [place] [address] Care Team Providers Care It Specialist Name Role Phone Carroll Fuentes DO Primary Care Provider Reason for Visit * Reason Onset Date Comments Medication Refill 01/06/2012 Encounter Details Date Type Department Care Team (Late st Contact Info) Description 01/06/2012 Refill [place] [address] Anup Hawkins MD [facility] [place] [address] Transplanted kidney (Primary Dx) Social History Tobacco [...] documented in this encounter Care Teams It Specialist Relationship Specialty Start Date End Date Carroll Fuentes DO [address] [place], [place] [address] PCP - General 09/23/11 10/20/22 documented as of this encounter
--- OUTSIDE RECORDS SUMMARY | 2024-05-23 13:40 | XMS_ITS | Encounter Summary ---
[place] [address] Care Team Providers Care Management Developer Name Role Phone Carroll Fuentes DO Primary Care Provider [phone] Encounter Details Date Type Department Care Team (Late st Contact Info) Description 12/24/2011 External Results [place] [address] Social History Tobacco Use Types Packs/Day Years [...] on filedocumented in this encounter Care Teams Management Developer Relationship Specialty Start Date End Date Carroll Fuentes DO [address] [place] [address] PCP - General 09/23/11 10/20/22 documented as of this encounter
--- OUTSIDE RECORDS SUMMARY | 2024-05-23 13:40 | XMS_ITS | Encounter Summary ---
[place] [address] Care Team Providers Care Patent Examiner Name Role Phone Carroll Fuentes DO Primary Care Provider Encounter Details Date Type Department Care Team (Late st Contact Info) Description 01/25/2012 External Results [place] [address] Social History Tobacco Use Types Packs/Day Years [...] on filedocumented in this encounter Care Teams Patent Examiner Relationship Specialty Start Date End Date Carroll Fuentes DO [address] [place] [address] PCP - General 09/23/11 10/20/22 documented as of this encounter
--- OUTSIDE RECORDS SUMMARY | 2024-05-23 13:40 | XMS_ITS | Encounter Summary ---
Author Organization [facility] Address [facility] [place] [address] Care Team Providers Care Tablet Making Machine Operator Name Role Phone AlfredoCarroll geiger Primary Care Provider [phone] Encounter Details Date Type Department Care Team (Late st Contact Info) Description 01/20/2012 Telephone [place] [phone] Tierney Chandra I, FINANCIAL ADVISOR [facility] [address] Social History Tobacco Use Types Packs/Day Years [...] local welfare office to apply for insurance MELY. SW also discussed [employer] prescription assistance and [employer] assistance programs. JANICE requested Janeth Tao from [facility] assist with [employer] application while this SW will initiate the [employer] application. Pt will come to [place] with income tax information for [employer] and to complete needed paperwork to expedite his application. Pt appreciative of assistance. SW will remain involved. Tierney Chandra LCSW documented in this encounter Plan of Treatment Not on file documented as of this encounter Visit Diagnoses Not on filedocumented in this encounter Care Teams Tablet Making Machine Operator Relationship Specialty Start Date End Date Carroll Fuentes DO [address] [place] [address] PCP - General 09/23/11 10/20/22 documented as of this encounter
--- OUTSIDE RECORDS SUMMARY | 2024-05-23 13:40 | XMS_ITS | Encounter Summary ---
Author Organization [facility] [place] [address] Care Team Providers Care Double Surface Operator Name Role Phone AlfredoCarroll allison Primary Care Provider [phone] Reason for Referral * Consultation (Routine) - Entered in Error Specialty Diagnoses / Procedures Referred By Shashi ko Referred To Contact Transplant Diagnoses BCC (basal cell carcinoma of skin) Sabrina Sanchez MD [facility] [place] [address] [facility] Transplant [address] [place] [address] Referral ID Status Reason Start Date Expiration Date Visits Requested Visits Authorized [id number] Entered in Error Consult Only 03/23/2012 09/19/2012 1 1 Reason for Visit * Reason Comments Advice Only clavical BCC Encounter Details Date Type Department Care Team (Late st Contact Info) Description 03/23/2012 8:30 AM EDT Office [place] [phone] Sabrina Sanchez MD [facility] [place] [address] BCC (basal cell carcinoma of skin) (Primary [...] appointment. Feel free to call our office [phone] if you have any questions or concerns. [...] to surgery unless otherwise advised by patient's PCP/Supervisor Slate Splitting for cardiac symptoms, to perform the pre-op scrub, and coordinate ride home following surgery. Discussed and answered all questions including post opcourse and activity limitations. Photos taken Patient was told to call the clinic for any questions or concerns prior to surgery. 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
--- OUTSIDE RECORDS SUMMARY | 2024-05-23 13:40 | XMS_ITS | Encounter Summary ---
[place] [address] Care Team Providers Care Catalyst Concentration Operator Name Role Phone Carroll Fuentes DO Primary Care Provider Encounter Details Date Type Department Care Team (Late st Contact Info) Description 11/27/2011 External Results [place] [address] Social History Tobacco Use Types Packs/Day Years [...] on filedocumented in this encounter Care Teams Catalyst Concentration Operator Relationship Specialty Start Date End Date Carroll Fuentes DO [address] [place] [address] PCP - General 09/23/11 10/20/22 documented as of this encounter
--- OUTSIDE RECORDS SUMMARY | 2024-05-23 13:40 | XMS_ITS | Encounter Summary ---
Author Organization [facility] Address [facility] [place] [address] Care Team Providers Care Hydraulic Lift Operator Name Role Phone AlfredoCarroll allison Primary Care Provider [phone] Encounter Details Date Type Department Care Team (Latest Contact Info) Description 12/22/2011 7:19 PM EDT - 12/22/2011 11:59 PM EDT Hospital [place] [address] Anup Hawkins MD [facility] [place] [address] Discharge Disposition: Home Social History Tobacco Use [...] Anup Hawkins MD CHEMISTRY ORDERAB LES BUSHRA [facility] documented in this encounter Visit Diagnoses Not on filedocumented in this encounter Care Teams Hydraulic Lift Operator Relationship Specialty Start Date End Date Carroll Fuentes DO [address] [place] [address] PCP - General 09/23/11 10/20/22 documented as of this encounter
--- OUTSIDE RECORDS SUMMARY | 2024-05-23 13:40 | XMS_ITS | Encounter Summary ---
Author Organization [facility] Address [facility] [place] [address] Care Team Providers Care Ict Developer Name Role Phone AlfredoCarroll allison Primary Care Provider Encounter Details Date Type Department Care Team (Latest Contact Info) Description 10/03/2011 6:44 PM EDT - 10/03/2011 11:59 PM EDT Hospital [place] [address] Anup Hawkins MD [facility] [place] [address] Discharge Disposition: Home Social History Tobacco Use [...] Anup Hawkins MD CHEMISTRY ORDERAB LES [facility] documented in this encounter Visit Diagnoses Not on filedocumented in this encounter Care Teams Ict Developer Relationship Specialty Start Date End Date Carroll Fuentes DO [address] [place] [address] PCP - General 09/23/11 10/20/22 documented as of this encounter
--- OUTSIDE RECORDS SUMMARY | 2024-05-23 13:40 | XMS_ITS | Encounter Summary ---
Author Organization [facility] Address [facility] [place] [address] Care Team Providers Care Medical Record Retrieval Specialist Name Role Phone AlfredoCarroll allison Primary Care Provider Encounter Details Date Type Department Care Team (Latest Contact Info) Description 02/22/2012 6:56 PM EDT - 02/22/2012 11:59 PM EDT Hospital [place] [address] Anup Hawkins MD [facility] [place] [address] Discharge Disposition: Home Social History Tobacco Use [...] Anup Hawkins MD CHEMISTRY ORDERAB LES BUSHRA BetyahМАРИЯ documented in this encounter Visit Diagnoses Not on filedocumented in this encounter Care Teams Medical Record Retrieval Specialist Relationship Specialty Start Date End Date Carroll Fuentes DO [address] [place] [address] PCP - General 09/23/11 10/20/22 documented as of this encounter
--- OUTSIDE RECORDS SUMMARY | 2024-05-23 13:41 | XMS_ITS | Encounter Summary ---
Author Organization [facility] Address [facility] [place] [address] Care Team Providers Care Design/Animation Instructor Name Role Phone Abhijeet Laughlin MD Primary Care Provider [phone] Reason for Visit * Reason Comments Kidney Transplant Follow-up Encounter Details Date Type Department Care Team (Latest Contact Info) Description 01/16/2011 11:00 AM EDT Office Visit [place] [address] Anup Hawkins MD [facility] [place] [address] Transplant kidney; Poisoning by antineoplastic and immunosuppressive [...] Urine Dipstick Clear Clear CERNER MILLENNIUM Specific [place] Urine Automated 1.006 1.002 - 1.030 CERNER MILLENNIUM Color, Urine Dipstick Yellow Yellow CERNER MILLENNIUM RBC, Urine 2 0 - 3 /HPF CERNER MILLENNIUM WBC, Urine 1 0 - 3 /HPF CERNER MILLENNIUM Squamous Epithelial Cells, Urine <1 <=4 /HPF CERNER MILLENNIUM Urine specimen (specimen) 01/16/2011 9:50 AM EDT 01/16/2011 10:07 AM EDT Anup Hawkins MD URINE ORDERABLES [facility] * REFLEX LAB-A-DIFF (01/16/2011 9:46 AM EDT) [...] AM EDT 01/16/2011 9:51 AM EDT Anup Hawkisn MD HEMATOLOGY ORDERA BLES [facility] * (ABNORMAL) Prothrombin Time (01/16/2011 9:46 AM EDT) Prothrombin Time 18.8(H) 12.3 - 14.7 sec CERNER MILLENNIUM Comment: [facility] Transfusion Committee Guidelines: INR less [...] MD HEMATOLOGY ORDERA BLES Performing Organization Address [facility] de Phone Number [facility] BRADLEYENNIUM * APTT (01/16/2011 9:46 AM EDT) Partial Thromboplastin Time 30 25 - 37 sec [facility] MILLENNIUM Comment: Recommended therapeutic PTT range for full dose unfractionated heparin is 80-114 seconds. Blood specimen (specimen) 01/16/2011 9:46 AM EDT 01/16/2011 9:51 AM EDT Anup Hawkins MD HEMATOLOGY ORDERA BLES Performing Organization Address [facility] Phone Number [facility] * Tacrolimus level (01/16/2011 9:46 AM EDT) Tacrolimus <3.0 ng/mL [facility] BRADLEYENNIUM Comment:Trough therapeutic: 5-15 ng/mL Blood specimen (specimen) 01/16/2011 9:46 AM EDT 01/16/2011 11:56 AM EDT Anup Hawkins MD CHEMISTRY ORDERAB LES Performing Organization Address [facility] de Phone Number [facility] ALFREDIUM * Reticulocyte Count (01/16/2011 9:46 AM [...] MD CHEMISTRY ORDERAB LES Performing Organization Address City/[facility] Co de Phone Number CERSHANNAN HUERTAENNIUM * Magnesium (01/16/2011 9:46 AM EDT) Magnesium 0.87 0.69 - 1.07 mmol/L CERNER MILLENNIUM Blood specimen (specimen) 01/16/2011 9:46 AM EDT 01/16/2011 9:51 AM EDT Anup Hawkins MD CHEMISTRY ORDERAB LES Performing Organization Address City/[facility] Co de Phone Number CERSHANNAN HUERTAENNIUM * [...] Anup Hawkins MD CHEMISTRY ORDERAB LES BUSHRA HUERTABRANDiD - [employer]MONE * Cholesterol, total (01/16/2011 9:46 AM EDT) Cholesterol, Total 192 <=199 mg/dL BUSHRA HUERTAENNIUM Comment: Recommendations of the NCEP Adult Treatment Panel for the following risk cutoff thresholds for the [place] population: Desirable: <200 mg/dL Borderline High: 200-239 mg/dL High: > or = 240 mg/dL Blood specimen (specimen) 01/16/2011 9:46 AM EDT 01/16/2011 9:51 AM EDT Anup Hawkins MD CHEMISTRY ORDERAB LES Performing Organization Address City/[facility] Co de Phone Number BUSHRA DOYLE documented in this encounter Visit Diagnoses Diagnosis Transplant kidney Kidney replaced by transplant Poisoning by antineoplastic and immunosuppressive drugs(963.1) Poisoning by antineoplastic and immunosuppressive drugs IgA nephropathy Nephritis and nephropathy, not specified as acute or chronic, with unspecified pathological lesion in kidney Kidney transplant Kidney replaced by transplant documented in this encounter Care Teams Design/Animation Instructor Relationship Specialty Start Date End Date Abhijeet Laughlin MD [address] [place] [address] PCP - General 06/03/10 07/20/11 documented as of this encounter
--- OUTSIDE RECORDS SUMMARY | 2024-05-23 13:41 | XMS_ITS | Encounter Summary ---
Author Organization [facility] [place] [address] Care Team Providers Care Remedial Reading Teacher Name Role Phone Abhijeet Laughlin MD Primary Care Provider Encounter Details Date Type Department Care Team (Late st Contact Info) Description 11/20/2010 [place] [address] Social History Tobacco Use Types Packs/Day Years [...] on filedocumented in this encounter Care Teams Remedial Reading Teacher Relationship Specialty Start Date End Date Abhijeet Laughlin MD [address] [place] [address] PCP - General 06/03/10 07/20/11 documented as of this encounter
--- OUTSIDE RECORDS SUMMARY | 2024-05-23 13:41 | XMS_ITS | Encounter Summary ---
Author Organization [facility] Address [facility] [place] [address] Care Team Providers Care Field Cane Scaler Name Role Phone Abhijeet Laughlin MD Primary Care Provider [phone] Reason for Visit * Reason Onset Date Comments Medication Refill 06/03/2011 Encounter Details Date Type Department Care Team (Late st Contact Info) Description 06/03/2011 Refill [place] [address] Anup Hawkins MD [facility] [place] [address] Social History Tobacco Use Types Packs/Day Years [...] filedocumented in this encounter Care Teams Field Cane Scaler Relationship Specialty Start Date End Date Abhijeet Laughlin MD [address] [place] [address] PCP - General 06/03/10 07/20/11 documented as of this encounter
--- OUTSIDE RECORDS SUMMARY | 2024-05-23 13:41 | XMS_ITS | Encounter Summary ---
Author Organization [facility] Address [facility] [place] [address] Care Team Providers Care Chemical Maker Name Role Phone Abhijeet Laughlin MD Primary Care Provider [phone] Encounter Details Date Type Department Care Team (Latest Contact Info) Description 12/31/2010 8:55 AM EDT - 12/31/2010 11:59 PM EDT Hospital En[place] [address] CLINIC, Anup Garcia MD [facility] [place] [address] Discharge Disposition: Home Social History Tobacco Use [...] 10:56 AM EDT) Surgical Pathology Report ? [facility] ? Provider: ?? ANUP OLVERA ??Pt. Name: ?? RIZWANA AMBROSERenetta Chacko ?C ? Acc #: ?[id number] ?Pt. ? Col Date: ?? 12/31/2010 ? [...] 0 to 4+. ?Evaluable glomeruli: ??Seven. ? [facility] ? Provider: ?? ANUP OLVERA ??Pt. Name: ?? ARNOL, CHRISTY Ginna ?C ? Acc #: ?[id number] ?Pt. ? Col Date: ?? 12/31/2010 ? [...] 2+ granular staining ?of tubular epithelial cells. ?[place]: ?1 to 2+ granular mesangial staining. ?[place]: [...] Transplant - kidney, glutaraldehyde ? RLQ ? [facility] ? Provider: ?? ANUP OLVERA ??Pt. Name: ?? CHRISTY AMBROSE ?C ? Acc #: ?[id number] ?Pt. ? Col Date: ?? 12/31/2010 ? [...] on filedocumented in this encounter Care Teams Chemical Maker Relationship Specialty Start Date End Date Abhijeet Laughlin MD [address] [place] [address] PCP - General 06/03/10 07/20/11 documented as of this encounter
--- OUTSIDE RECORDS SUMMARY | 2024-05-23 13:41 | XMS_ITS | Encounter Summary ---
Author Organization [facility] Address [facility] [place] [address] Care Team Providers Care Probate Paralegal Name Role Phone Abhijeet Laughlin MD Primary Care Provider [phone] Reason for Visit * Reason Comments Kidney Transplant Follow-up Encounter Details Date Type Department Care Team (Latest Contact Info) Description 02/10/2011 10:30 AM EDT Office Visit [place] [address] Anup Hawkins MD [facility] [place] [address] Transplant kidney; Poisoning by antineoplastic and immunosuppressive [...] EDT Anup Hawkins MD HEMATOLOGY ORDERA BLES [facility] BR[facility]LEY[facility]NI[facility] * (ABNORMAL) Prothrombin Time (02/10/2011 9:59 AM EDT) Prothrombin Time 24.3(H) 12.3 - 14.7 sec CERNER MILLENNIUM Comment: [facility] Transfusion Committee Guidelines: INR less [...] MD HEMATOLOGY ORDERA BLES Performing Organization Address [facility] Co de Phone Number [facility]LEY[facility]ITALI[facility] * APTT (02/10/2011 9:59 AM EDT) Partial Thromboplastin Time 34 25 - 37 sec [facility] Comment: Recommended therapeutic PTT range for full dose unfractionated heparin is 80-114 seconds. Blood specimen (specimen) 02/10/2011 9:59 AM EDT 02/10/2011 10:02 AM EDT Anup Hawkins MD HEMATOLOGY ORDERA BLES Performing Organization Address [facility] de Phone Number [facility] PlusBlue SolutionsRUDYNOV[facility] * Tacrolimus level (02/10/2011 9:59 AM EDT) Tacrolimus <3.0 ng/mL [facility] Comment:Trough therapeutic: 5-15 ng/mL Blood specimen (specimen) 02/10/2011 9:59 AM EDT 02/10/2011 11:48 AM EDT Anup Hawkins MD CHEMISTRY ORDERAB LES Performing Organization Address [facility] Co de Phone Number [facility] * Reticulocyte Count (02/10/2011 9:59 AM EDT) Reticulocyte % 0.7 0.5 - 2.4 % [facility] MILLENNIUM Retic Abs # 0.030 0.027 - [...] City/[facility]/ZIP Co de Phone Number BUSHRA SIMONIUM * [...] EDT Anup Hawkins MD CHEMISTRY ORDERAB LES [facility] BRADLEYENNIUM * Magnesium (02/10/2011 9:59 AM EDT) Magnesium 0.87 0.69 - 1.07 mmol/L CERNER MILLENNIUM Blood specimen (specimen) 02/10/2011 9:59 AM EDT 02/10/2011 10:02 AM EDT Anup Hawkins MD CHEMISTRY ORDERAB LES [facility] BRADLEYENNIUM * (ABNORMAL) Comprehensive metabolic panel (non-fasting) [...] MD CHEMISTRY ORDERAB LES Performing Organization Address [facility]/ZIP Co de Phone Number CERNER BRADLEYENNIUM * Cholesterol, total (02/10/2011 9:59 AM EDT) Cholesterol, Total 189 <=199 mg/dL CERNER MILLENNIUM Comment: Recommendations of the NCEP Adult Treatment Panel for the following risk cutoff thresholds for the [place] population: Desirable: <200 mg/dL Borderline High: 200-239 mg/dL High: > or = 240 mg/dL Blood specimen (specimen) 02/10/2011 9:59 AM EDT 02/10/2011 10:02 AM EDT Anup Hawkins MD CHEMISTRY ORDERAB LES Performing Organization Address [facility]/ZIP Co de Phone Number CERNER MILLENNIUM [...] Urine Dipstick Clear Clear CERNER MILLENNIUM Specific [place] Urine Automated 1.012 1.002 - 1.030 CERNER [...] drugs documented in this encounter Care Teams Probate Paralegal Relationship Specialty Start Date End Date Abhijeet Laughlin MD [address] [place] [address] PCP - General 06/03/10 07/20/11 documented as of this encounter
--- OUTSIDE RECORDS SUMMARY | 2024-05-23 13:41 | XMS_ITS | Encounter Summary ---
Author Organization [facility] Address [facility] [place] [address] Care Team Providers Care Operational Review Sergeant Name Role Phone Abhijeet Laughlin MD Primary Care Provider [phone] Reason for Visit * Reason Comments Kidney Transplant Follow-up Encounter Details Date Type Department Care Team (Latest Contact Info) Description 12/03/2010 3:20 PM EDT Follow-[place] [address] Naz Anthony [facility] [place] [address] Transplant kidney (Primary Dx); Poisoning by antineoplastic [...] Urine Dipstick Clear Clear CERNER MILLENNIUM Specific [place] Urine Automated 1.010 1.002 - 1.030 CERNER MILLENNIUM Color, Urine Dipstick Yellow Yellow CERNER MILLENNIUM RBC, Urine 4(H) 0 - 3 /HPF CERNER MILLENNIUM WBC, Urine <1 0 - 3 /HPF CERNER MILLENNIUM Bacteria, Urine Rare(A) None /HPF CERNER MILLENNIUM Urine specimen (specimen) 12/03/2010 2:25 PM EDT 12/03/2010 2:32 PM EDT Anup Hawkins MD URINE ORDERABLES Performing Organization Address City/[facility] Co de Phone Number [facility] MILLENNIUM * (ABNORMAL) TSH (12/03/2010 2:15 PM EDT) Thyroid Stimulating Hormone 5.71(H) 0.27 - 4.20 mcIU/mL CERNER MILLENNIUM Blood specimen (specimen) 12/03/2010 2:15 PM EDT 12/03/2010 2:23 PM EDT Anup Hawkins MD CHEMISTRY ORDERAB LES Performing Organization Address City/State/[facility] Co de Phone Number [facility] MILLENNIUM documented in this encounter Visit Diagnoses Diagnosis Transplant kidney- Primary Kidney replaced by transplant Poisoning by antineoplastic and immunosuppressive drugs(963.1) Poisoning by antineoplastic and immunosuppressive drugs Proteinuria Hematuria Hematuria, unspecified IgA nephropathy Nephritis and nephropathy, not specified as acute or chronic, with unspecified pathological lesion in kidney documented in this encounter Care Teams Operational Review Sergeant Relationship Specialty Start Date End Date Abhijeet Laughlin MD [address] [place] [address] PCP - General 06/03/10 07/20/11 documented as of this encounter
--- OUTSIDE RECORDS SUMMARY | 2024-05-23 13:41 | XMS_ITS | Encounter Summary ---
Author Organization [facility] Address [facility] [place] [address] Care Team Providers Care Rn Pacu Name Role Phone Abhijeet Laughlin MD Primary Care Provider [phone] Reason for Visit * Reason Comments Kidney Transplant Follow-up Encounter Details Date Type Department Care Team (Latest Contact Info) Description 03/17/2011 10:30 AM EDT Follow-Up [place] [address] Anup Hawkins MD [facility] [address] [place] [address] Transplant kidney; Poisoning by antineoplastic and immunosuppressive [...] site to entertain the possibility of learning [employer] management at [facility]. We will see if he follows through. [...] 12.3 - 14.7 sec CERNER MILLENNIUM Comment: [facility] Transfusion Committee Guidelines: INR less [...] MD HEMATOLOGY ORDERA BLES Performing Organization Address [facility] de Phone Number CERSHANNAN HUERTAENNIUM * APTT (03/17/2011 9:39 AM EDT) Partial Thromboplastin Time 32 25 - 37 sec CERNER MILLENNIUM Comment: Recommended therapeutic PTT range for full dose unfractionated heparin is 80-114 seconds. Blood specimen (specimen) 03/17/2011 9:39 AM EDT 03/17/2011 9:44 AM EDT Anup Hawkins MD HEMATOLOGY ORDERA BLES Performing Organization Address [facility] Phone Number BUSHRA HUERTAENNIUM * Tacrolimus level (03/17/2011 9:39 AM EDT) Tacrolimus 3.4 ng/mL CERNER MILLENNIUM Comment:Trough therapeutic: 5-15 ng/mL Blood specimen (specimen) 03/17/2011 9:39 AM EDT 03/17/2011 12:01 PM EDT Anup Hawkins MD CHEMISTRY ORDERAB LES Performing Organization Address [facility] de Phone Number BUSHRA HUERTAENNIUM * Reticulocyte [...] ORDERAB LES Performing Organization Address City/[facility]/ZIP Co de Phone Number [facility] BRADLEYENNIUM * Magnesium (03/17/2011 9:39 AM EDT) Magnesium 0.89 0.69 - 1.07 mmol/L CERNER MILLENNIUM Blood specimen (specimen) 03/17/2011 9:39 AM EDT 03/17/2011 9:44 AM EDT Anup Hawkins MD CHEMISTRY ORDERAB LES Performing Organization Address [facility] Co de Phone Number [facility] * (ABNORMAL) Comprehensive metabolic [...] EDT Anup Hawkins MD CHEMISTRY ORDERAB LES CERSustain360IUM * Cholesterol, total (03/17/2011 9:39 AM EDT) Cholesterol, Total 189 <=199 mg/dL CERNER MILLENNIUM Comment: Recommendations of the NCEP Adult Treatment Panel for the following risk cutoff thresholds for the [place] population: Desirable: <200 mg/dL Borderline High: 200-239 mg/dL High: > or = 240 mg/dL Blood specimen (specimen) 03/17/2011 9:39 AM EDT 03/17/2011 9:44 AM EDT Anup Hawkins MD CHEMISTRY ORDERAB LES Performing Organization Address [facility] de Phone Number [employer] TechnologiesIUM * (ABNORMAL) Urinalysis with microscopic (03/17/2011 9:37 [...] Urine Dipstick Clear Clear CERNER MILLENNIUM Specific [place] Urine Automated 1.011 1.002 - 1.030 CERNER [...] drugs documented in this encounter Care Teams Rn Pacu Relationship Specialty Start Date End Date Abhijeet Laughlin MD [address] [place] [address] PCP - General 06/03/10 07/20/11 documented as of this encounter
--- OUTSIDE RECORDS SUMMARY | 2024-05-23 13:41 | XMS_ITS | Encounter Summary ---
Author Organization [facility] Address [facility] [place] [address] Care Team Providers Care Logging Contractor Name Role Phone Unknown Primary Care Provider Unavailabl e Reason for Visit * Reason Onset Date Comments Medication Refill 08/07/2011 Encounter Details Date Type Department Care Team (Late st Contact Info) Description 08/07/2011 Refill Solid [place] [address] Anup Hawkins MD [facility] [place] [address] S/P kidney transplant (Primary Dx) Social History [...] transplant documented in this encounter Care Teams Logging Contractor Relationship Specialty Start Date End Date Unknown None PCP - General 07/21/11 09/22/11 documented as of this encounter
--- OUTSIDE RECORDS SUMMARY | 2024-05-23 13:41 | XMS_ITS | Encounter Summary ---
Author Organization Formerly [facility], [facility] [place] [address] Care Team Providers Care Organic Lab Worker Name Role Phone Ileana Azevedo CATRACHITO Primary Care Provider [phone] Encounter Details Date Type Department Care Team (Late st Contact Info) Description 12/31/2010 Orders Only [place] [address] Anup Hawkins MD [facility] [place] [address] Social History Tobacco Use Types Packs/Day Years Used Date Smoking Tobacco: Former Cigarettes Q uit: 12/03/2000 Alcohol Use Standard Drinks/Week Comments Not Asked 0 (1 standard drink = 0.6 oz pur e alcohol) [facility] Inpatient Questions Answer Date Recorded Does [...] 10:56 AM EDT) Surgical Pathology Report [id number] ? Location: 3S The signing pathologist has [...] staining ? of tubular epithelial cells. ?? Strawberry: ?1 to 2+ granular mesangial staining. ?? [...] MD PATHOLOGY/CYTOLOG Y ORDERABLES Performing Organization Address City/State/[facility] Co de Phone Number [facility] documented in this encounter Visit Diagnoses Not on filedocumented in this encounter Care Teams Organic Lab Worker Relationship Specialty Start Date End Date Ileana Azevedo, ORTHOTIST [address] [place] [address] PCP - General Family Medicine 10/21/22 documented as of this encounter
--- OUTSIDE RECORDS SUMMARY | 2024-05-23 13:41 | XMS_ITS | Encounter Summary ---
Author Organization [facility] Address [facility] [place] [address] Care Team Providers Care Barrel Assembly Inspector Name Role Phone Abhijeet Laughlin MD Primary Care Provider [phone] Encounter Details Date Type Department Care Team (Latest Contact Info) Description 12/03/2010 1:27 PM EDT - 12/03/2010 11:59 PM EDT Hospital [place] [address] Anup Hawkins MD [facility] [place] [address] Transplant of kidney; Transplant kidney; Poisoning by [...] URINE RESULT (12/03/2010 2:25 PM EDT) Pathologist [facility] BKV Urine Result Not Detected [facility] BKV Urine Interp BK Virus Urine Result [...] isolated from urine was performed using the [employer] BK Virus MGB Alert primers(2) and probes (1) and analyzed on the Kame[employer] Smartcycler. In addition, the PCR product sequence is confirmed using physical properties (melting curve analysis). This test was developed and its performance determined by the [facility]. It has not been [...] EDT Anup Hawkins MD HEMATOLOGY ORDERA MARISOL [facility] * (ABNORMAL) Urinalysis with microscopic (12/03/2010 2:25 [...] Urine Dipstick Clear Clear CERNER MILLENNIUM Specific [place] Urine Automated 1.010 1.002 - 1.030 CERNER [...] HEMATOLOGY ORDERA BLES Performing Organization Address [facility] de Phone Number [facility] * Vitamin D2 and D3 25 Hydroxy (12/03/2010 2:16 PM EDT) 25-Hydroxy D2 6.9 ng/mL CERNER MILLENNIUM Comment: Test Performed by: [facility] [place] [address] Guard Supervisor: Christal Ramírez, Ph.D. 25-Hydroxy D3 23 ng/mL [facility] MILLENNIUM Comment: Test Performed by: [facility] [place] [address] Guard Supervisor: Christal Ramírez, Ph.D. Vitamin D Total 25 OH 30 ng/mL [facility] MILLENNI[facility] Comment: -- REFERENCE VALUE -- 25-HYDROXY D TOTAL (D2+D3) Optimum levels in the normal population are 25-80 Test Performed by: [facility] [place] [address] Guard Supervisor: Christal Ramírez, Ph.D. Blood specimen (specimen) 12/03/2010 2:16 PM EDT 12/03/2010 3:14 PM EDT Anup Hawkins MD CHEMISTRY ORDERAB LES Performing Organization Address [facility]/ZIP Co de Phone Number [facility] BRADLEYENNI[facility] * Reticulocyte Count (12/03/2010 2:16 PM [...] (with Diff) (12/03/2010 2:16 PM EDT) Pathologist [facility] White Blood Cell 5.3 4.0 - 10.0 [...] pg/mL CERNER MILLENNIUM Comment: Test Performed by: [facility] Dpt of Lab Med and Pathology [address] [place] [address] Guard Supervisor: Herber Tomas III, M.D. Blood specimen (specimen) 12/03/2010 2:15 PM EDT 12/03/2010 4:16 PM EDT Anup Hawkins MD LAB SEND OUT RYAN CALERO Performing Organization Address [facility]/ZIP Co de Phone Number [facility] * REFLEX LAB-BK QUANT BLOOD RESULT (12/03/2010 2:15 PM EDT) [facility] BKV Blood Result Not Detected [facility] BKV Blood Interp BK Virus Blood Result [...] isolated from plasma was performed using the Media[employer] BK Virus MGB Alert primers(2) and probes (1) and analyzed on the Kame[employer] Smartcycler. In addition, the ??PCR product sequence is confirmed using physical properties (melting curve analysis). This test was developed and its performance determined by the [facility] [place]ology [place]. It has not been cleared or approved by the U.S. Food and Drug Administration. This test is used for clinical purposes and should not be considered investigational or for research purposes. The Molecular Pathology Laboratory is certified by the Clinical Laboratory Improvement Act of 1988 and as such is allowed to perform high complexity clinical testing. [facility] Comment: [VERIFIED DATE]12.04.10 Verified By:Keli Cohen (Electronic Signature) Blood specimen (specimen) 12/03/2010 2:15 PM EDT 12/04/2010 9:09 AM EDT Anup Hawkins MD HEMATOLOGY ORDERA BLES Performing Organization Address [facility]/ZIP Co de Phone Number [facility] * Uric acid (12/03/2010 2:15 PM EDT) Uric Acid 6.0 3.5 - 8.5 mg/dL CERNER MILLENNIUM Blood specimen (specimen) 12/03/2010 2:15 PM EDT 12/03/2010 2:23 PM EDT Anup Hawkins MD CHEMISTRY ORDERAB LES Performing Organization Address [facility] Co de Phone Number CERNER MILLENNIUM * Phosphorus (12/03/2010 2:15 PM EDT) Phosphorus 3.5 2.5 - 4.5 mg/dL CERNER MILLENNIUM Blood specimen (specimen) 12/03/2010 2:15 PM EDT 12/03/2010 2:23 PM EDT Anup Hawkins MD CHEMISTRY ORDERAB LES Performing Organization Address [facility] Co de Phone Number [facility] MILLENNIUM * Magnesium (12/03/2010 2:15 PM EDT) Magnesium 0.75 0.69 - 1.07 mmol/L CERNER MILLENNIUM Blood specimen (specimen) 12/03/2010 2:15 PM EDT 12/03/2010 2:23 PM EDT Anup Hawkins MD CHEMISTRY ORDERAB LES Performing Organization Address [facility] Co de Phone Number [facility] MILLENNIUM * (ABNORMAL) Comprehensive metabolic panel (non-fasting) [...] CHEMISTRY ORDERAB LES Performing Organization Address [facility] Co de Phone Number [facility] PimovationYUMA [facility] CENTERIUM * (ABNORMAL) TSH (12/03/2010 2:15 PM EDT) Thyroid Stimulating Hormone 5.71(H) 0.27 - 4.20 mcIU/mL [facility] Blood specimen (specimen) 12/03/2010 2:15 PM EDT 12/03/2010 2:23 PM EDT Anup Hawkins MD CHEMISTRY ORDERAB LES Performing Organization Address [facility] de Phone Number [facility] P[facility]ovationY[facility] * Reflex Lab-PTH (12/03/2010 2:15 PM EDT) Parathyroid Hormone 39 15 - 65 pg/mL [facility] P[facility]ovationY[facility]ENTERI[facility] Blood specimen (specimen) 12/03/2010 2:15 PM EDT 12/03/2010 2:23 PM EDT Anup Hawkins MD CHEMISTRY ORDERAB LES Performing Organization Address [facility] Co de Phone Number [facility] PimovationY[facility]ENTERI[facility] * (ABNORMAL) Lipid panel (fasting) (12/03/2010 2:15 PM EDT) Cholesterol, Total 207(H) <=199 mg/dL [facility] Comment: Recommendations of the NCEP Adult Treatment Panel for the following risk cutoff thresholds for the [place] population: Desirable: <200 mg/dL Borderline High: 200-239 mg/dL High: > or = 240 mg/dL Triglyceride 90 <=149 mg/dL [facility] Comment: Reference Range: Normal triglycerides: ??<150 mg/dL Borderline high: ??150-199 mg/dL High: ??200-499 mg/dL Very high: ??>ik=599 mg/dL RAYMOND 2001; 285(19):1742-1856 HDL Cholesterol 43 >=40 mg/dL [facility] Comment: Reference range: ??Low HDL: ?? < 40 mg/dL ??Normal: ?40-60 mg/dL ??Desirable: > 60 mg/dL RAYMOND 2001; 285(19):0167-8334 LDL Cholesterol 146(H) <=99 mg/dL [facility]N [facility] Comment: Reference range: ?? Optimal: ?<100 mg/dL ?? Near Optimal/Above Optimal: ?? 100-129 mg/dL ?? Borderline high: ?130-159 mg/dL ?? High: ? 160-189 mg/dL ?? Very high: ?>gk=261 mg/dL RAYMOND 2001: 285(19):5036-8091 Cholesterol/HDL Ratio 4.8 ratio BUSHRA SIMONCOUNT INCLUDES THE [facility] Comment: A Cholesterol to HDL ratio below 4:1 is desirable. ??Studies suggest that increased CAD risk occurs at ratios above 5 for females and above 6 for men. ? [place] Heart Association ??(http://www.americanheart.org) ? Marizol Int Med, 1994; 121:641 ? AM J Med, 1998; 105(1A):48S Blood specimen (specimen) 12/03/2010 2:15 PM EDT 12/03/2010 2:23 PM EDT Anup Hawkins MD CHEMISTRY ORDERAB LES [facility] * (ABNORMAL) Prothrombin Time (12/03/2010 2:15 PM EDT) Prothrombin Time 21.6(H) 12.3 - 14.7 sec BUSHRA HUERTAENNIUM Comment: [facility] Transfusion Committee Guidelines: INR less than [...] HEMATOLOGY ORDERA BLES Performing Organization Address [facility] de Phone Number [facility]STITUTEGeos CommunicationsIUM * APTT (12/03/2010 2:15 PM EDT) Partial Thromboplastin Time 32 25 - 37 sec CERNER MILLENNIUM Comment: Recommended therapeutic PTT range for full dose unfractionated heparin is 80-114 seconds. Blood specimen (specimen) 12/03/2010 2:15 PM EDT 12/03/2010 2:23 PM EDT Anup Hawkins MD HEMATOLOGY ORDERA BLES Performing Organization Address [facility] Phone Number [facility]STITUTEGe[facility] CommunicationsIUM * Tacrolimus level (12/03/2010 2:15 PM EDT) Tacrolimus 7.7 ng/mL [facility] Kaikeba.comIUM Comment:Trough therapeutic: 5-15 ng/mL Blood specimen (specimen) 12/03/2010 2:15 PM EDT 12/04/2010 8:13 AM EDT Anup Hawkins MD CHEMISTRY ORDERAB LES Performing Organization Address [facility] Phone Number [employer] * (ABNORMAL) CREATININE CLEARANCE, URINE , 24 HOUR (12/03/2010 7:00 AM EDT) Creatinine Clearance, 24 Hour Urine 35(L) 90 - 139 mL/min [facility] PimovationENNIUM Cre Concentration, U24 17 mg/dL CERNER PimovationENNIUM Creatinine, 24 Hour Urine 0.97 0.80 - 1.90 gm/24hr CERNER MILLENNIUM Urine specimen (specimen) 12/03/2010 7:00 AM EDT 12/03/2010 2:57 PM EDT Anup Hawkins MD URINE ORDERABLES Performing Organization Address [facility] de Phone Number CERNER MILLENNIUM * REFLEX LAB-U24 HRS AND VOLUME (12/03/2010 7:00 AM EDT) Hours Collected 24 hour(s) CERNER MILLENNIUM Total Volume 5700 mL CERNER MILLENNIUM Urine specimen (specimen) 12/03/2010 7:00 AM EDT 12/03/2010 2:57 PM EDT Anup Hawkins MD CHEMISTRY ORDERAB LES Performing Organization Address [facility] Phone Number CERNER MILLENNIUM * Phosphorus, urine, 24 hour (12/03/2010 7:00 AM EDT) Phosphorus Concentration, U24 10.4 mg/dL CERNER MILLENNIUM Phosphorus, 24 Hour Urine 0.6 0.4 - 1.3 gm/24hr CERNER MILLENNIUM Urine specimen (specimen) 12/03/2010 7:00 AM EDT 12/03/2010 2:57 PM EDT Narrative Authorizing Provider Result Angie Hawkins MD URINE ORDERABLES Performing Organization Address [facility] de Phone Number CERNER MILLENNIUM * (ABNORMAL) Protein, urine, 24 hour (12/03/2010 7:00 AM EDT) Protein Concentration, U24 50 <=80 mg/dL CERNER MILLENNIUM Protein, 24 Hour Urine 2.85(H) <=0.15 gm/24hr CERNER MILLENNIUM Urine specimen (specimen) 12/03/2010 7:00 AM EDT 12/03/2010 2:57 PM EDT Anup Hawkins MD URINE ORDERABLES Performing Organization Address [facility] de Phone Number [facility] BRADLEYENNIUM * (ABNORMAL) Uric acid, urine, 24 hour (12/03/2010 7:00 AM EDT) U24 Uric Conc 3.3 mg/dL [facility] MILLENNIUM Uric Acid, 24 Hour Urine 0.19(L) 0.25 - 0.80 gm/24hr CERNER MILLENNIUM Urine specimen (specimen) 12/03/2010 7:00 AM EDT 12/03/2010 2:57 PM EDT Anup Hawkins MD URINE ORDERABLES Performing Organization Address [facility] de Phone Number CERSHANNAN HUERTAENNIUM * Creatinine, urine, 24 hour (12/03/2010 7:00 AM EDT) Cre Concentration, U24 17 mg/dL [facility] MILLENNIUM Creatinine, 24 Hour Urine 0.97 0.80 - 1.90 gm/24hr CERNER MILLENNIUM Urine specimen (specimen) 12/03/2010 7:00 AM EDT 12/03/2010 2:57 PM EDT Anup Hawkins MD URINE ORDERABLES Performing Organization Address [facility] de Phone Number CERSHANNAN HUERTAENNIUM * (ABNORMAL) Calcium, urine, 24 hour (12/03/2010 7:00 AM EDT) Ca Concentration, U24 0.4 mg/dL [facility] MILLENNIUM Calcium, 24 Hour Urine 22.8(L) 50.0 - 300.0 mg/24hr CERNER MILLENNIUM Comment:Reference Range: 50. 0-300.0 mg/24 hour based on diet. Urine specimen (specimen) 12/03/2010 7:00 AM EDT 12/03/2010 2:57 PM EDT Anup Hawkins MD URINE ORDERABLES Performing Organization Address [facility] Co de Phone Number CERNER MILLENNIUM documented in this encounter Visit Diagnoses Diagnosis Transplant of kidney Kidney replaced by transplant Transplant kidney Kidney replaced by transplant Poisoning by antineoplastic and immunosuppressive drugs(963.1) Poisoning by antineoplastic and immunosuppressive drugs documented in this encounter Care Teams Barrel Assembly Inspector Relationship Specialty Start Date End Date Abhijeet Laughlin MD [address] [place] [address] PCP - General 06/03/10 07/20/11 documented as of this encounter
--- OUTSIDE RECORDS SUMMARY | 2024-05-23 13:41 | XMS_ITS | Encounter Summary ---
Author Organization [facility] Address [facility] [place] [address] Care Team Providers Care Junior Web Developer Name Role Phone Unknown Primary Care Provider Unavailabl e Encounter Details Date Type Department Care Team (Latest Contact Info) Description 08/24/2011 6:43 PM EST - 08/24/2011 11:59 PM [facility] Hospital [place] [address] Anup Hawkins MD [facility] [place] [address] Discharge Disposition: Home Social History Tobacco Use [...] EST Anup Hawkins MD CHEMISTRY ORDERAB LES [facility]PR[facility] documented in this encounter Visit Diagnoses Not on filedocumented in this encounter Care Teams Junior Web Developer Relationship Specialty Start Date End Date Unknown None PCP - General 07/21/11 09/22/11 documented as of this encounter
--- OUTSIDE RECORDS SUMMARY | 2024-05-23 13:41 | XMS_ITS | Encounter Summary ---
Author Organization [facility] Address [facility] [place] [address] Care Team Providers Care Human Services Worker Name Role Phone Abhijeet Laughlin MD Primary Care Provider [phone] Reason for Visit * Reason Onset Date Comments Results 01/01/2011 Encounter Details Date Type Department Care Team (Late st Contact Info) Description 01/01/2011 Telephone Solid [place] [address] Anup Hawkins MD [facility] [address] [place] [address] Results Social History Tobacco Use Types Packs/Day [...] transplant documented in this encounter Care Teams Human Services Worker Relationship Specialty Start Date End Date Abhijeet Laughlin MD [address] [place] [address] PCP - General 06/03/10 07/20/11 documented as of this encounter
--- OUTSIDE RECORDS SUMMARY | 2024-05-23 13:41 | XMS_ITS | Encounter Summary ---
Author Organization [facility] Address [facility] [place] [address] Care Team Providers Care Conduit Helper Name Role Phone Abhijeet Laughlin MD Primary Care Provider [phone] Encounter Details Date Type Department Care Team (Latest Contact Info) Description 02/02/2011 6:31 PM EDT - 02/02/2011 11:59 PM EDT Hospital [place] [address] Anup Hawkins MD [facility] [address] [place] [address] Discharge Disposition: Home Social History Tobacco Use [...] (02/02/2011 9:15 AM EDT) Tacrolimus 5.2 ng/mL [facility] Comment:Trough therapeutic: 5-15 ng/mL Blood specimen (specimen) 02/02/2011 9:15 AM EDT 02/03/2011 8:10 AM EDT Anup Hawkins MD CHEMISTRY ORDERAB LES [facility] documented in this encounter Visit Diagnoses Not on filedocumented in this encounter Care Teams Conduit Helper Relationship Specialty Start Date End Date Abhijeet Laughlin MD [address] [place] [address] PCP - General 06/03/10 07/20/11 documented as of this encounter
--- OUTSIDE RECORDS SUMMARY | 2024-05-23 13:41 | XMS_ITS | Encounter Summary ---
Author Organization [facility] Address [facility] [place] [address] Care Team Providers Care Senior Design Engineer Name Role Phone Abhijeet Laughlin MD Primary Care Provider [phone] Reason for Visit * Reason Comments Seizures Encounter Details Date Type Department Care Team (Late st Contact Info) Description 04/14/2011 2:45 PM EDT [place] [address] Benji Skinner MD [facility] [place] [address] Epilepsy (Primary Dx) Discharge Disposition: Home Social [...] MD TRANSPLANT SURGERY [place] GARCIA DO [address] [place] [id number] Dictation ID: [id number] Vessel Crew Member Login: [id number] Communication sent to: Carroll Hartmann Michael C. Chobanian 04/09/2010 08:55 Electronically signed by: BENJI SKINNER MD 04/09/2010 08:55 documented in this encounter Miscellaneous Notes * Miscellaneous - Rick Income Tax Manager - 04/22/2011 2:51 AM EDT documented in this encounter Plan of Treatment Not on file documented as of this encounter Visit Diagnoses Diagnosis Epilepsy- Primary Unspecified epilepsy without mention of intractable epilepsy documented in this encounter Care Teams Senior Design Engineer Relationship Specialty Start Date End Date Abhijeet Laughlin MD [address] [place] [address] PCP - General 06/03/10 07/20/11 documented as of this encounter
--- OUTSIDE RECORDS SUMMARY | 2024-05-23 13:41 | XMS_ITS | Encounter Summary ---
Author Organization [facility] Address [facility] [place] [address] Care Team Providers Care Natural Gas Basis Trader Name Role Phone Unknown Primary Care Provider Unavailabl e Reason for Visit * Reason Onset Date Comments Medication Refill 07/30/2011 Encounter Details Date Type Department Care Team (Late st Contact Info) Description 07/30/2011 Refill [place] [address] Anup Hawkins MD [facility] [place] [address] S/P kidney transplant (Primary Dx) Social History [...] transplant documented in this encounter Care Teams Natural Gas Basis Trader Relationship Specialty Start Date End Date Unknown None PCP - General 07/21/11 09/22/11 documented as of this encounter
--- OUTSIDE RECORDS SUMMARY | 2024-05-23 13:41 | XMS_ITS | Encounter Summary ---
[place] [address] Care Team Providers Care Monitoring Engineer Name Role Phone Unknown Primary Care Provider Unavailabl e Encounter Details Date Type Department Care Team (Late st Contact Info) Description 08/26/2011 External Results [place] [address] Social History Tobacco Use Types Packs/Day Years [...] on filedocumented in this encounter Care Teams Monitoring Engineer Relationship Specialty Start Date End Date Unknown None PCP - General 07/21/11 09/22/11 documented as of this encounter
--- OUTSIDE RECORDS SUMMARY | 2024-05-23 13:41 | XMS_ITS | Encounter Summary ---
Author Organization [facility] Address [facility] [place] [address] Care Team Providers Care Steak Sauce Maker Name Role Phone Abhijeet Laughlin MD Primary Care Provider [phone] Encounter Details Date Type Department Care Team (Latest Contact Info) Description 11/17/2010 6:14 PM EDT - 11/17/2010 11:59 PM EDT Hospital [place] [address] Anup Hawkins MD [facility] [place] [address] Discharge Disposition: Home Social History Tobacco Use [...] on filedocumented in this encounter Care Teams Steak Sauce Maker Relationship Specialty Start Date End Date Abhijeet Laughlin MD [address] [place] [address] PCP - General 06/03/10 07/20/11 documented as of this encounter
--- OUTSIDE RECORDS SUMMARY | 2024-05-23 13:41 | XMS_ITS | Encounter Summary ---
Author Organization [facility] Address [facility] [place] [address] Care Team Providers Care Promotion Writer Name Role Phone Unknown Primary Care Provider Unavailabl e Encounter Details Date Type Department Care Team (Latest Contact Info) Description 07/21/2011 6:58 PM EST - 07/21/2011 11:59 PM [facility] Hospital [place] [address] Anup Hawkins MD [facility] [place] [address] Discharge Disposition: Home Social History Tobacco Use [...] EST Anup Hawkins MD CHEMISTRY ORDERAB LES [facility] documented in this encounter Visit Diagnoses Not on filedocumented in this encounter Care Teams Promotion Writer Relationship Specialty Start Date End Date Unknown None PCP - General 07/21/11 09/22/11 documented as of this encounter
--- OUTSIDE RECORDS SUMMARY | 2024-05-23 13:41 | XMS_ITS | Encounter Summary ---
[place] [address] Care Team Providers Care Job Placement Officer Name Role Phone Abhijeet Laughlin MD Primary Care Provider [phone] Encounter Details Date Type Department Care Team (Late st Contact Info) Description 04/30/2011 Orders Only [place] [address] Social History Tobacco Use Types Packs/Day Years [...] on filedocumented in this encounter Care Teams Job Placement Officer Relationship Specialty Start Date End Date Abhijeet Laughlin MD [address] [place] [address] PCP - General 06/03/10 07/20/11 documented as of this encounter
--- OUTSIDE RECORDS SUMMARY | 2024-05-23 13:41 | XMS_ITS | Encounter Summary ---
[place] [address] Care Team Providers Care Injection Molding Machine Tender Name Role Phone Abhijeet Laughlin MD Primary Care Provider [phone] Encounter Details Date Type Department Care Team (Late st Contact Info) Description 06/26/2011 External Results [place] [address] Social History Tobacco Use Types Packs/Day Years [...] on filedocumented in this encounter Care Teams Injection Molding Machine Tender Relationship Specialty Start Date End Date Abhijeet Laughlin MD [address] [place] [address] PCP - General 06/03/10 07/20/11 documented as of this encounter
--- OUTSIDE RECORDS SUMMARY | 2024-05-23 13:41 | XMS_ITS | Encounter Summary ---
Author Organization [facility] Address [facility] [place] [address] Care Team Providers Care Career Technical Education Instructor Name Role Phone Abhijeet Laughlin MD Primary Care Provider [phone] Encounter Details Date Type Department Care Team (Latest Contact Info) Description 06/23/2011 6:52 PM EST - 06/23/2011 11:59 PM [facility] Hospital [place] [address] Anup Hawkins MD [facility] [place] [address] Discharge Disposition: Home Social History Tobacco Use [...] 8:25 AM EST) Tacrolimus <3.0 ng/mL [facility] Comment:Trough therapeutic: 5-15 ng/mL Blood specimen (specimen) 06/23/2011 8:25 AM EST 06/24/2011 8:06 AM EST Anup Hawkins MD CHEMISTRY ORDERAB LES [facility] documented in this encounter Visit Diagnoses Not on filedocumented in this encounter Care Teams Career Technical Education Instructor Relationship Specialty Start Date End Date Abhijeet Laughlin MD [address] [place] [address] PCP - General 06/03/10 07/20/11 documented as of this encounter
--- OUTSIDE RECORDS SUMMARY | 2024-05-23 13:41 | XMS_ITS | Encounter Summary ---
Author Organization [facility] Address [place] [address] Care Team Providers Care Ui Designer Name Role Phone Abhijeet Laughlin MD Primary Care Provider [phone] Reason for Visit * Reason Comments Kidney Transplant Follow-up Encounter Details Date Type Department Care Team (Latest Contact Info) Description 12/31/2010 9:00 AM EDT Follow-Up [place] [address] Anup Hawkins MD [facility] [address] [place] [address] Transplant kidney; Poisoning by antineoplastic and immunosuppressive [...] drugs documented in this encounter Care Teams Ui Designer Relationship Specialty Start Date End Date Abhijeet Laughlin MD [address] [place] [address] PCP - General 06/03/10 07/20/11 documented as of this encounter
--- OUTSIDE RECORDS SUMMARY | 2024-05-23 13:41 | XMS_ITS | Encounter Summary ---
Author Organization [facility] [place] [address] Care Team Providers Care Switchboard Wirer Name Role Phone Abhijeet Laughlin MD Primary Care Provider [phone] Encounter Details Date Type Department Care Team (Late st Contact Info) Description 11/11/2010 Orders Only [place] [address] Naz Anthony APRN [facility] [place] [address] Transplant of kidney (Primary Dx) Social History [...] 2:16 PM EDT) 25-Hydroxy D2 6.9 ng/mL [facility] Comment: Test Performed by: [place] [employer] [address] [address] Bow[place] Ball Patcher: Christal Ramírez, Ph.D. 25-Hydroxy D3 23 ng/mL [facility] [employer] Comment: Test Performed by: [facility] [email or web address] [address] [address] [place] Patcher: Christal Ramírez, Ph.D. Vitamin D Total 25 OH 30 ng/mL [facility] MILLENNI[facility] Comment: -- REFERENCE VALUE -- 25-HYDROXY D TOTAL (D2+D3) Optimum levels in the normal population are 25-80 Test Performed by: [facility] [email or web address] [address] Bowling Ball Patcher: Christal Ramírez, Ph.D. Blood specimen (specimen) 12/03/2010 2:16 PM EDT 12/03/2010 3:14 PM EDT Anup Hawkins MD CHEMISTRY ORDERAB LES Performing Organization Address City/[facility]/ZIP Co de Phone Number CERSHANNAN SIMONIUM * [...] MD HEMATOLOGY ORDERA BLES Performing Organization Address City/[facility]/ZIP Co de Phone Number [facility]NA[facility] SIMONIUM * [...] EDT Anup Hawkins MD HEMATOLOGY ORDERA BLES [facility] * Reflex Lab-PTH (12/03/2010 2:15 PM EDT) Parathyroid Hormone 39 15 - 65 pg/mL [facility] Blood specimen (specimen) 12/03/2010 2:15 PM EDT 12/03/2010 2:23 PM EDT Anup Hawkins MD CHEMISTRY ORDERAB LES [facility] * (ABNORMAL) Lipid panel (fasting) (12/03/2010 2:15 PM EDT) Cholesterol, Total 207(H) <=199 mg/dL [facility] MILLENNIUM Comment: Recommendations of the NCEP Adult Treatment Panel for the following risk cutoff thresholds for the [place] population: Desirable: <200 mg/dL Borderline High: 200-239 mg/dL High: > or = 240 mg/dL Triglyceride 90 <=149 mg/dL [facility] MILL[facility] Comment: Reference Range: Normal triglycerides: ??<150 mg/dL Borderline high: ??150-199 mg/dL High: ??200-499 mg/dL Very high: ??>eh=052 mg/dL RAYMOND 2001; 285(19):4588-0909 HDL Cholesterol 43 >=40 mg/dL [facility] Comment: Reference range: ??Low HDL: ?? < 40 mg/dL ??Normal: ?40-60 mg/dL ??Desirable: > 60 mg/dL RAYMOND 2001; 285(19):4394-4871 LDL Cholesterol 146(H) <=99 mg/dL [facility] Comment: Reference range: ?? Optimal: ?<100 mg/dL ?? Near Optimal/Above Optimal: ?? 100-129 mg/dL ?? Borderline high: ?130-159 mg/dL ?? High: ? 160-189 mg/dL ?? Very high: ?>uz=926 mg/dL RAYMOND 2001: 285(19):5725-9620 Cholesterol/HDL Ratio 4.8 ratio [facility] Comment: A Cholesterol to HDL ratio below 4:1 is desirable. ??Studies suggest that increased CAD risk occurs at ratios above 5 for females and above 6 for men. ? [place] Heart Association ??(http://www.americanheart.org) ? Marizol Int Med, 1994; 121:641 ? AM J Med, 1998; 105(1A):48S Blood specimen (specimen) 12/03/2010 2:15 PM EDT 12/03/2010 2:23 PM EDT Anup Hawkins MD CHEMISTRY ORDERAB LES [facility] * (ABNORMAL) Prothrombin Time (12/03/2010 2:15 PM EDT) Prothrombin Time 21.6(H) 12.3 - 14.7 sec [facility] Comment: [facility] Transfusion Committee Guidelines: INR less than 2.0, PTT less than OR equal to 43.5 seconds, or Fibrinogen greater than or equal to 100 mg/dl indicate adequate procoagulant activity for hemostasis in patients without underlying bleeding disorders. International Normalization Ratio 1.8(H) 0.9 - 1.1 [facility] Blood specimen (specimen) 12/03/2010 2:15 PM EDT 12/03/2010 2:23 PM EDT Anup Hawkins MD HEMATOLOGY ORDERA BLES Performing Organization Address [facility] Phone Number [facility] * APTT (12/03/2010 2:15 PM EDT) Partial Thromboplastin Time 32 25 - 37 sec [facility] Comment: Recommended therapeutic PTT range for full dose unfractionated heparin is 80-114 seconds. Blood specimen (specimen) 12/03/2010 2:15 PM EDT 12/03/2010 2:23 PM EDT Anup Hawkins MD HEMATOLOGY ORDERA BLES Performing Organization Address [facility] Phone Number [facility] * Tacrolimus level (12/03/2010 2:15 PM EDT) Tacrolimus 7.7 ng/mL [facility] Comment:Trough therapeutic: 5-15 ng/mL Blood specimen (specimen) 12/03/2010 2:15 PM EDT 12/04/2010 8:13 AM EDT Anup Hawkins MD CHEMISTRY ORDERAB LES Performing Organization Address [facility] Phone Number [facility] * Uric acid (12/03/2010 2:15 PM EDT) Uric Acid 6.0 3.5 - 8.5 mg/dL [facility] Blood specimen (specimen) 12/03/2010 2:15 PM EDT 12/03/2010 2:23 PM EDT Anup Hawkins MD CHEMISTRY ORDERAB LES Performing Organization Address [facility]/State/ZIP Co de Phone Number CERNER BRADLEYENNIUM * Phosphorus (12/03/2010 2:15 PM EDT) Phosphorus 3.5 2.5 - 4.5 mg/dL [facility] Blood specimen (specimen) 12/03/2010 2:15 PM EDT 12/03/2010 2:23 PM EDT Anup Hawkins MD CHEMISTRY ORDERAB LES Performing Organization Address [facility] de Phone Number CERSHANNAN HUERTAENNIUM * Magnesium (12/03/2010 2:15 PM EDT) Magnesium 0.75 0.69 - 1.07 mmol/L [facility] Blood specimen (specimen) 12/03/2010 2:15 PM EDT 12/03/2010 2:23 PM EDT Anup Hawkins MD CHEMISTRY ORDERAB LES Performing Organization Address [facility] de Phone Number [facility] * (ABNORMAL) Comprehensive metabolic panel [...] MD URINE ORDERABLES Performing Organization Address [facility] de Phone Number CERSHANNAN HUERTAENNIUM * (ABNORMAL) Protein, urine, 24 hour (12/03/2010 7:00 AM EDT) Protein Concentration, U24 50 <=80 mg/dL [facility] MILLENNI[facility] Protein, 24 Hour Urine 2.85(H) <=0.15 gm/24hr [facility]ILL[facility] Urine specimen (specimen) 12/03/2010 7:00 AM EDT 12/03/2010 2:57 PM EDT Anup Hawkins MD URINE ORDERABLES Performing Organization Address [facility] de Phone Number [facility]ERSHANNAN SIMONIUM * (ABNORMAL) Uric acid, urine, 24 hour (12/03/2010 7:00 AM EDT) U24 Uric Conc 3.3 mg/dL [facility] MILLENNIUM Uric Acid, 24 Hour Urine 0.19(L) 0.25 - 0.80 gm/24hr [facility] Urine specimen (specimen) 12/03/2010 7:00 AM EDT 12/03/2010 2:57 PM EDT Anup Hawkins MD URINE ORDERABLES Performing Organization Address [facility] de Phone Number CERSHANNAN HUERTAENNIUM * Creatinine, urine, 24 hour (12/03/2010 7:00 AM EDT) Cre Concentration, U24 17 mg/dL [facility]ILLENNI[facility] Creatinine, 24 Hour Urine 0.97 0.80 - 1.90 gm/24hr [facility] Urine specimen (specimen) 12/03/2010 7:00 AM EDT 12/03/2010 2:57 PM EDT Anup Hawkins MD URINE ORDERABLES [facility]ERSHANNAN [facility] FPENNIUM * (ABNORMAL) Calcium, urine, 24 hour (12/03/2010 7:00 AM EDT) Ca Concentration, U24 0.4 mg/dL [facility]ILL[facility]NI[facility] Calcium, 24 Hour Urine 22.8(L) 50.0 - 300.0 mg/24hr [facility]ILL[facility]NI[facility] Comment:Reference Range: 50. 0-300.0 mg/24 hour based on diet. Urine specimen (specimen) 12/03/2010 7:00 AM EDT 12/03/2010 2:57 PM EDT Anup Hawkins MD URINE ORDERABLES Performing Organization Address City/[facility] Co de Phone Number [facility]ERSHANNAN [employer] documented in this encounter Visit Diagnoses Diagnosis Transplant of kidney- Primary Kidney replaced by transplant documented in this encounter Care Teams Switchboard Wirer Relationship Specialty Start Date End Date Abhijeet Laughlin MD [address] [place] [address] PCP - General 06/03/10 07/20/11 documented as of this encounter
--- OUTSIDE RECORDS SUMMARY | 2024-05-23 13:41 | XMS_ITS | Encounter Summary ---
[place] [address] Care Team Providers Care Shear Assembler Name Role Phone Abhijeet Laughlin MD Primary Care Provider Encounter Details Date Type Department Care Team (Late st Contact Info) Description 12/29/2010 Abstract [place] [address] Karuna Sheldon, RN Social History Tobacco Use [...] on filedocumented in this encounter Care Teams Shear Assembler Relationship Specialty Start Date End Date Abhijeet Laughlin MD [address] [place] [address] PCP - General 06/03/10 07/20/11 documented as of this encounter
--- OUTSIDE RECORDS SUMMARY | 2024-05-23 13:41 | XMS_ITS | Encounter Summary ---
Author [facility] [place] [address] Care Team Providers Care Repairer General Name Role Phone Abhijeet Laughlin MD Primary Care Provider [phone] Reason for Visit * Reason Onset Date Comments Advice Only 12/04/2010 Ptnt's mom calls with questions concerning Adama's upcoming kidney biopsy. Encounter Details Date Type Department Care Team (Late st Contact Info) Description 12/04/2010 Telephone [place] [address] Naz Anthony [facility] [place] [address] Advice Only (Ptnt's mom calls with questions [...] in the near future. I explained to Ilad that Adama's primary kidney disease and initial [...] her to Adama contact Erika Sweeney, transplant emergency department coordinator, with the new address. Erika is aware [...] filedocumented in this encounter Care Teams Repairer General Relationship Specialty Start Date End Date Abhijeet Laughlin MD [address] [place] [address] PCP - General 06/03/10 07/20/11 documented as of this encounter
--- OUTSIDE RECORDS SUMMARY | 2024-05-23 13:41 | XMS_ITS | Encounter Summary ---
Author Organization [facility] Address [facility] [place] [address] Care Team Providers Care Block Feeder Name Role Phone Abhijeet Laughlin MD Primary Care Provider [phone] Encounter Details Date Type Department Care Team (Latest Contact Info) Description 04/28/2011 6:37 PM EDT - 04/28/2011 11:59 PM EDT [place] [address] Anup Hawkins MD [facility] [place] [address] Discharge Disposition: Home Social History Tobacco Use [...] Anup Hawkins MD CHEMISTRY ORDERAB LES [facility] documented in this encounter Visit Diagnoses Not on filedocumented in this encounter Care Teams Block Feeder Relationship Specialty Start Date End Date Abhijeet Laughlin MD [address] [place] [address] PCP - General 06/03/10 07/20/11 documented as of this encounter
--- OUTSIDE RECORDS SUMMARY | 2024-05-23 13:41 | XMS_ITS | Encounter Summary ---
[place] [address] Care Team Providers Care Marriage Counselor Name Role Phone Abhijeet Laughlin MD Primary Care Provider [phone] Encounter Details Date Type Department Care Team (Late st Contact Info) Description 12/02/2010 Abstract [place] [address] Rachel Bloom, RN Social History Tobacco Use [...] on filedocumented in this encounter Care Teams Marriage Counselor Relationship Specialty Start Date End Date Abhijeet Laughlin MD [address] [place] [address] PCP - General 06/03/10 07/20/11 documented as of this encounter
--- OUTSIDE RECORDS SUMMARY | 2024-05-23 13:41 | XMS_ITS | Encounter Summary ---
Author Organization [facility] Address [facility] [place] [address] Care Team Providers Care Video Presentation Operator Name Role Phone Abhijeet Laughlin MD Primary Care Provider [phone] Encounter Details Date Type Department Care Team (Latest Contact Info) Description 12/31/2010 9:13 AM EDT - 12/31/2010 11:59 PM EDT Hospital En[place] [address] Anup Hawkins MD [facility] [place] [address] Discharge Disposition: Home Social History Tobacco Use [...] MD CHEMISTRY ORDERAB LES Performing Organization Address City/[facility] Co de Phone Number CODIBANNER ALFREDIUM * (ABNORMAL) CHOLESTEROL, TOTAL (12/31/2010 8:35 AM EDT) Cholesterol, Total 216(H) <=199 mg/dL [facility] BRADLEY[facility]NI[facility] Comment: Recommendations of the NCEP Adult Treatment Panel for the following risk cutoff thresholds for the [place] population: Desirable: <200 mg/dL Borderline High: 200-239 mg/dL High: > or = 240 mg/dL Blood specimen (specimen) 12/31/2010 8:35 AM EDT 12/31/2010 10:22 AM EDT Anup Hawkins MD CHEMISTRY ORDERAB LES Performing Organization Address [facility] Co de Phone Number [facility] SIMONIUM * MAGNESIUM (12/31/2010 8:35 AM EDT) Magnesium 0.90 0.69 - 1.07 mmol/L [facility] BRADLEY[facility]NIUM Blood specimen (specimen) 12/31/2010 8:35 AM EDT 12/31/2010 10:22 AM EDT Anup Hawkins MD CHEMISTRY ORDERAB LES Performing Organization Address [facility] Co de Phone Number [facility]NER ALFREDI[facility] * PHOSPHORUS (12/31/2010 8:35 AM EDT) Phosphorus 3.7 2.5 - 4.5 mg/dL [facility] Blood specimen (specimen) 12/31/2010 8:35 AM EDT 12/31/2010 10:22 AM EDT Anup Hawkins MD CHEMISTRY ORDERAB LES Performing Organization Address City/[facility] Co de Phone Number [facility]ERBANNER ALFREDIUM * URIC ACID (12/31/2010 8:35 AM EDT) Uric Acid 5.7 3.5 - 8.5 mg/dL [facility] MILLENNIUM Blood specimen (specimen) 12/31/2010 8:35 AM EDT 12/31/2010 10:22 AM EDT Anup Hawkins MD CHEMISTRY ORDERAB LES Performing Organization Address [facility] Co de Phone Number CERSHANNAN SIMONIUM [...] BLES Performing Organization Address [facility] Co de Phone Number CERSHANNAN SIMONIUM [...] EDT Anup Hawkins MD HEMATOLOGY ORDERA BLES [facility] * TACROLIMUS LEVEL (12/31/2010 8:35 AM EDT) Pathologist [facility] Tacrolimus 7.6 ng/mL [facility] Comment:Trough therapeutic: 5-15 ng/mL Blood specimen (specimen) 12/31/2010 8:35 AM EDT 12/31/2010 12:03 PM EDT Anup Hawkins MD CHEMISTRY ORDERAB LES Performing Organization Address City/[facility]/ZIP Co de Phone Number [facility] * (ABNORMAL) URINALYSIS WITH MICROSCOPIC (12/31/2010 [...] Urine Dipstick Clear Clear CERNER MILLENNIUM Specific [place] Urine Automated 1.011 1.002 - 1.030 CERNER [...] ORDERABLES Performing Organization Address [facility] Phone Number BUSHRA HUERTAENNIUM * APTT (12/31/2010 8:35 AM EDT) Partial Thromboplastin Time 29 25 - 37 sec [facility] MILLENNIUM Comment: Recommended therapeutic PTT range for full dose unfractionated heparin is 80-114 seconds. Blood specimen (specimen) 12/31/2010 8:35 AM EDT 12/31/2010 10:23 AM EDT Anup Hawkins MD HEMATOLOGY ORDERA BLES Performing Organization Address [facility] Phone Number BUSHRA HUERTAENNIUM * (ABNORMAL) PROTHROMBIN TIME (12/31/2010 8:35 AM EDT) Prothrombin Time 16.0(H) 12.3 - 14.7 sec [facility] MILLENNIUM Comment: [facility] Transfusion Committee Guidelines: INR less [...] BLES Performing Organization Address [facility] Phone Number BUSHRA HUERTADubaiCityIUM * (ABNORMAL) COMPREHENSIVE METABOLIC PANEL (NON-FASTING) (12/31/2010 8:35 AM EDT) [facility] Glucose 105 60 - 199 mg/dL CERNER [...] MD CHEMISTRY ORDERAB LES Performing Organization Address City/State/[facility] Co de Phone Number [facility] documented in this encounter Visit Diagnoses Not on filedocumented in this encounter Care Teams Video Presentation Operator Relationship Specialty Start Date End Date Abhijeet Laughlin MD [address] [place] [address] PCP - General 06/03/10 07/20/11 documented as of this encounter
--- OUTSIDE RECORDS SUMMARY | 2024-05-23 13:41 | XMS_ITS | Encounter Summary ---
[place] [address] Care Team Providers Care Spine Specialist Name Role Phone Unknown Primary Care Provider Unavailabl e Encounter Details Date Type Department Care Team (Late st Contact Info) Description 07/23/2011 External Results [place] [address] Social History Tobacco Use Types Packs/Day Years [...] on filedocumented in this encounter Care Teams Spine Specialist Relationship Specialty Start Date End Date Unknown None PCP - General 07/21/11 09/22/11 documented as of this encounter
--- OUTSIDE RECORDS SUMMARY | 2024-05-23 13:42 | XMS_ITS ---
Author Organization [facility] [place] [address] Care Team Providers Care White Sugar Supervisor Name Role Phone Ileana Azevedo APRN Primary Care Provider [phone] Transplant Episode Kidney Recipient [facility] ([place], [place]) - [facility] Organ Received: Right Kidney Transplanted on 11/26/2002 Marked as Not Followed on 07/30/2018 Reason: Graft Lost Kidney CoordinatorAutumn Burgos RN Phone: N/A Fax: N/A Email: N/A [place] Organ Diagnosis Organ Primary Contributory Kidney IgA [...] Type Comments Center 07/30/2018 In-center Hemodialysis T- [facility] Dialysis Center Information Center Phone Fax Address [facility] [phone] [place] [address] [place] [address]
--- OUTSIDE RECORDS SUMMARY | 2024-05-23 13:42 | XMS_ITS | Data Portability ---
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 unspecified formulation 08/25/2021 completed Not Available [facility] 05/21/2023 05:42:45 COVID-19, mRNA, LNP-S, PF, dusty-sucrose, 30 mcg/0.3 mL 05/11/2024 completed ILEANA GILLIAM APRN [facility] [address], [place], [address], [facility]. 05/11/2024 10:17:39 COVID-19, mRNA, LNP-S, PF, dusty-sucrose, 30 mcg/0.3 mL 06/17/2023 completed LINUS MILES CMA null, [facility], [facility]. 06/17/2023 14:34:26 influenza, unspecified formulation 04/19/2024 completed LINUS MILES FIRE EXTINGUISHER INSPECTOR null, [facility]. 04/28/2024 10:51:15 Past Encounters Encounter ID Performer Location Encounter Start Date Encounter Closed Date Diagnosis/Indication Diagnosis SNOMED-CT Code Diagnosis ICD10 Code [id number] ILEANA GILLIAM APRN [address] [address] 06/17/2023 10:08:17 06/17/2023 15:23:56 Active or passive immunization 405624894 Z23 [id number] ILEANA TAWANA[address] [address] 07/29/2023 07:07:29 07/29/2023 11:08:37 Pure hypercholesterolemia 187760218 E78.00 Nonulcer dyspepsia 54378 07 K30 Hypothyroidism 42541352 E03.9 Epilepsy 19648727 G40.90 9 End-stage renal disease 88189223 N18.6 Chronic pu lmonary edema 12158768 J81.1 Gout 29824881 M10.9 Impaired f asting glycemia 034630616 R73.01 Essential hypertension 22979410 I10 Allergic rhinitis 052190 04 J30.9 [id number] [address] 09/21/2023 11:27:52 09/21/2023 12:33:33 Epilepsy 08992392 G40.909 Hypothyroidism 88901412 E03.9 Impaired f asting glycemia 858383389 R73.01 Nonulcer dyspepsia 82401 07 K30 [id number] ILEANA TAWANA[address] [address] 12/09/2023 07:11:21 12/09/2023 14:46:22 Chronic pulmonary edema 72720867 J81.1 Pure hypercholesterolemia 103671572 E78.00 Hypothyroidism 70770853 E03.9 Impaired f asting glycemia 016525595 R73.01 Nonulcer dyspepsia 11098 07 K30 End-stage renal disease 28209732 N18.6 Gout 09949908 M10.9 Essential hypertension 80706821 I10 Epilepsy 01899249 G40.90 9 Allergic rhinitis 139541 04 J30.[id number] [address] 04/27/2024 07:52:46 04/27/2024 11:24:19 Chronic pulmonary edema 16772897 J81.1 Pure hypercholesterolemia 006363805 E78.00 Hypothyroidism 15500058 E03.9 Impaired f asting glycemia 237484994 R73.01 Nonulcer dyspepsia 00446 07 K30 End-stage renal disease 06860569 N18.6 Gout 17724644 M10.9 Essential hypertension 42685431 I10 Epilepsy 79666467 G40.90 9 Allergic rhinitis 887263 04 J30.9 Impacted c erumen of bilateral ears 2727428393 403331 H61.23 [id number] ILEANA GILLIAM APRN [address] [address] 05/11/2024 08:01:51 05/11/2024 09:16:00 Active or passive immunization 692677237 Z23 Health Concerns Section Related Observation LastModified by Organization Detai ls LastModified Time None Recorded Concern Status LastModified by Organization Details LastModified Time None Recorded Advance Directives Directive None Recorded Payers Encounter Date Sequence Insurance Name Policy Number Policy Butterfield Covered Member ID Butterfield Member ID Guarantor Name 07/29/2023 1 [place] [employer] [place] Adamamaty Ram [id number] Adama Ram 07/29/2023 2 [facility] (MEDICAID) Adamamaty Ram [id number] Adama Ram 09/21/2023 1 [place] Adamamaty Ram [id number] Adama Ram 09/21/2023 2 [facility] (MEDICAID) Adamamaty Ram [id number] Adama Ram 12/09/2023 1 [place] Adamamaty Ram [id number] Adama Ram 12/09/2023 2 [employer] (MEDICAID) Adamamaty Ram [id number] Adama Ram 04/27/2024 1 [place] Adamamaty Ram [id number] Adama Ram 04/27/2024 2 [facility] (MEDICAID) Adamamaty Ram [id number] Adama Ram 05/11/2024 1 [place] Adamamaty Ram [id number] Adama Ram 05/11/[address] [facility] (MEDICAID) Adama Ram [id number] Adama Ram Notes Date Note Type Note Provider Name and Address Organization Details Recorded Time 07/29/2023 text/html HPI Notes: Home visit for [...] of dialysis access and was admitted to [facility] with change out of device. -gout. Takes allopurinol, asymptomatic. Last visit uric acid was reduced to 100mg, uric acid level was slightly low at 3.8. -hypotension chronic, hypertension. Takes coreg, losartan. Had referral to cardiology but they did not want to see patient because he is on dialysis; recommended [facility]. -epilepsy, hx of TBI. on Keppra. -environmental allergies. no complaints. -Cerumen impaction. Will evaluate ears today, gets routine manual removal. ILEANA GILLIAM, MELTER HELPER [address], [place], [address], [facility]. 07/29/2023 13:59:51 09/21/2023 text/html [...] echelon of care, only available facility was [facility]. on 09/09 was admitted to [facility] in [place]. Discharged on 09/13/23. Rec'd dialysis while at facility. After neurology evaluation, decision was to add keppra 250mg after dialysis. Does see neurology for gait imbalance (suspected r/t peripheral neuropathy), memory changes with mood changes/ irritability complicated by prior TBI, seizures, neuropathy, stress, memory. Has not FU to date. 09/21/23. Feels good. [facility] stay was good, was necessary. just fine since going back to the [facility]. Denies fevers, chills. Denies malaise. sleeping well. Denies syncope, light headed, dizzy. not aware of any seizures. Denies headaches. Denies nausea/ vomiting. Denies diarrhea, constipation. Denies heartburn/ reflux. Once in a while he will have rhinitis. Called [facility], spoke with Anayeli. She has not seen any seizures, and has no concerns. ILEANA GILLIAM APRN [address], [place], [address], [facility] 09/21/2023 13:10:26 12/09/2023 text/html HPI Notes: Home [...] of dialysis access and was admitted to [facility] with change out of device. -gout. Takes allopurinol, asymptomatic. Last visit uric acid was reduced to 100mg, uric acid level was slightly low at 3.8. -hypotension chronic, hypertension. Takes coreg, losartan. Had referral to cardiology but they did not want to see patient because he is on dialysis; recommended [facility]. -- update 12.09.23- BP trends 130/82 pulse 64; 146/74, pulse 60; 146/72, pulse 60; 128/64 pulse 67 -epilepsy, hx of TBI. on Keppra. In September was hospitalized for seizures and his keppra was increased with an additional dose after each dialysis session. -environmental allergies. no complaints. -Cerumen impaction. Will evaluate ears today, gets routine manual removal. ILEANA GILLIAM APRN [address], [place], [address], [facility] 12/09/2023 07:25:01 04/27/2024 text/html HPI Notes: Home visit for follow-up: I feel good. Dialysis center in [place] currently, goes Mon/ Wed/ Fri -chronic pulmonary edema. asymptomatic -hypercholesterolem ia. without statin. -hypothyroidism. Takes levothyroxine at 100mcg -impaired fasting glucose. family hx of diabetes. Prediabetes. -dyspepsia. Takes pantoprazole. -end stage renal disease, failed transplant, IgA nephropathy, hyperkalemia, anemia in chronic kidney disease, iron deficiency anemia, secondary hyperparathyroidism . on meds, on dialysis. Since last visit had loss of dialysis access and was admitted to [facility] with change out of device. -gout. Takes allopurinol, asymptomatic. Last visit uric acid was reduced to 100mg, uric acid level was slightly low at 3.8. -hypotension chronic, hypertension. Takes coreg, losartan. Had referral to cardiology but they did not want to see patient because he is on dialysis; recommended [facility]. -epilepsy, hx of TBI. on Keppra. In September was hospitalized for seizures and his keppra was increased with an additional dose after each dialysis session. -environmental allergies. no complaints. -Cerumen impaction. Will evaluate ears today, gets routine manual removal. ILEANA GILLIAM APRN [address], [place], [address], [facility] 04/27/2024 12:06:26 05/11/2024 text/html HPI Notes: Home visit for vaccination. Needs Com[place] vaccine. Denies fevers or chills. Has no concerns. ILEANA GILLIAM APRN [address], [place], [address], [facility] 05/11/2024 10:17:57
--- OUTSIDE RECORDS SUMMARY | 2024-05-23 13:42 | XMS_ITS | Encounter Summary ---
Author Organization [facility] Address [facility] [place] [address] Care Team Providers Care Landscape Architect Name Role Phone Abhijeet Laughlin MD Primary Care Provider [phone] Encounter Details Date Type Department Care Team (Latest Contact Info) Description 08/26/2010 6:43 PM EST - 08/26/2010 11:59 PM [facility] Hospital [place] [address] Anup Hawkins MD [facility] [place] [address] Discharge Disposition: Home Social History Tobacco Use [...] MD CHEMISTRY ORDERAB LES Performing Organization Address City/State/[facility] Co de Phone Number [facility] documented in this encounter Visit Diagnoses Not on filedocumented in this encounter Care Teams Landscape Architect Relationship Specialty Start Date End Date Abhijeet Laughlin MD [address] [place] [address] PCP - General 06/03/10 07/20/11 documented as of this encounter
--- OUTSIDE RECORDS SUMMARY | 2024-05-23 13:42 | XMS_ITS | Encounter Summary ---
Author Organization [facility] Address [address] [place] [address] Care Team Providers Care World Geography Teacher Name Role Phone Carroll Fuentes DO Primary Care Provider [phone] Reason for Visit * Reason Onset Date Comments Discuss Possible Transfer 09/18/2019 Encounter Details Date Type Department Care Team (Late st Contact Info) Description 09/18/[address] [id number] Isacc Lai MD [address] [address] Discuss Possible Transfer Social History Tobacco Use Types Packs/Day Years Used Date Smoking Tobacco: Never Assessed Sex and Gender Information Value Date Recorded Sex Assigned at Not on file Legal Sex Male 18:56 EST Gender Identity Not on file Sexual Orientation Not on file documented as of this encounter Miscellaneous Notes * Telephone Encounter - Isacc Lai MD - 09/18/2019 1234 EDT Medicine hospitalist telephone encounter Date: 09/18/2019 Time: 12: 30 5 PM Called by PANCHITO Berg in the emergency department at [facility] in [place], [place] to discuss transferring this patient to our facility. Patient is a 81-dadl-ilnxuqk history of end-stage renal disease on dialysis Wednesday/Wednesday/Wednesday and followed by [facility] nephrology as well as a [...] their facility. Since he is followed by [facility] nephrology they could coordinate any medication changes through his primary card tape converter operator. Additionally she indicated that the dialysis unit in [place] would be willing to trial dialysis again [...] documented as of this encounter Care Teams World Geography Teacher Relationship Specialty Start Date End Date Carroll Fuentes DO [address] [place] [address] PCP - General 03/17/12 documented as of this encounter
--- OUTSIDE RECORDS SUMMARY | 2024-05-23 13:42 | XMS_ITS | Encounter Summary ---
Author Organization [facility] Address [address] [place] [address] Care Team Providers Care Hedge Fund Accountant Name Role Phone Carroll Fuentes DO Primary Care Provider [phone]- [phone] Encounter Details Date Type Department Care Team (Late st Contact Info) Description 05/01/2022 Lab Requisition [facility] Pathology & Laboratory Medicine - [address] [address] Outr Resulting Lab, Provider Social History Tobacco [...] Priority Date/Time Associated Diagnosis Comments ZZCOVID-19 TEST [facility] PCR Today 04/30/2022 16:40 EDT COVID-19 TESTING Routine 04/30/2022 16:4 0 EDT documented in this encounter Results * COVID-19 TEST [facility] PCR (04/30/2022 16:40 EDT) Swab 04/30/2022 16:4 0 EDT 05/01/2022 17:36 EDT us Provider Outr Resulting Lab MICROBIOLOGY - GENER AL ORDERABLES Final Result [facility] [address] [place] [address] * COVID-19 TESTING (04/30/2022 16:40 EDT) COVID-19 rt-PCR Result Negative Negative 05/02/2022 10:49 EDT [facility] Comment: This test [...] was performed using the aneudy SARS-CoV-2 assay ([employer] on the Aneudy 6800 System Performing Lab Aneudy 6800 [facility] 05/02/2022 10:49 EDT [facility] Swab 04/30/2022 16:4 0 EDT 05/01/2022 17:36 EDT us Provider Outr Resulting Lab MICROBIOLOGY - GENER AL ORDERABLES Final Result [facility] [address] [place] [address] documented in this encounter Visit Diagnoses Not on filedocumented in this encounter Care Teams Hedge Fund Accountant Relationship Specialty Start Date End Date Carroll Fuentes DO [address] [place] [address] [place] [address] PCP - General 03/17/12 documented as of this encounter
--- OUTSIDE RECORDS SUMMARY | 2024-05-23 13:42 | XMS_ITS | Encounter Summary ---
Author Organization [facility] Address [facility] [place] [address] Care Team Providers Care Financial Accounting Manager Name Role Phone Abhijeet Laughlin MD Primary Care Provider [phone] Encounter Details Date Type Department Care Team (Latest Contact Info) Description 07/16/2010 6:32 PM EST - 07/16/2010 11:59 PM [facility] [place] [address] Anup Hawkins MD [facility] [address] [place] [address] Discharge Disposition: Home Social History Tobacco Use [...] filedocumented in this encounter Care Teams Financial Accounting Manager Relationship Specialty Start Date End Date Abhijeet Laughlin MD [address] [place] [address] PCP - General 06/03/10 07/20/11 documented as of this encounter
--- OUTSIDE RECORDS SUMMARY | 2024-05-23 13:42 | XMS_ITS | Encounter Summary ---
Author Organization [facility] Address [facility] [place] [address] Care Team Providers Care Insole And Outsole Splitter Name Role Phone Abhijeet Laughlin MD Primary Care Provider [phone] Encounter Details Date Type Department Care Team (Latest Contact Info) Description 10/10/2010 6:23 PM EDT - 10/10/2010 11:59 PM EDT [place] [address] Anup Hawkins MD [facility] [place] [address] Discharge Disposition: Home Social History Tobacco Use [...] EDT Anup Hawkins MD CHEMISTRY ORDERAB LES [facility] documented in this encounter Visit Diagnoses Not on filedocumented in this encounter Care Teams Insole And Outsole Splitter Relationship Specialty Start Date End Date Abhijeet Laughlin MD [address] [place] [address] PCP - General 06/03/10 07/20/11 documented as of this encounter
--- OUTSIDE RECORDS SUMMARY | 2024-05-23 13:42 | XMS_ITS | Encounter Summary ---
Author Organization [facility] Address [facility] [place] [address] Care Team Providers Care Critical Care Technician Name Role Phone Abhijeet Laughlin MD Primary Care Provider [phone] Encounter Details Date Type Department Care Team (Late st Contact Info) Description 06/23/2010 [place] [address] Anup Hawkins MD [facility] [place] [address] Social History Tobacco Use Types Packs/Day Years [...] 10:35 AM EST) Tacrolimus 3.6 ng/mL [facility] Comment:Trough therapeutic: 5-15 ng/mL Blood specimen (specimen) 06/23/2010 10:35 AM EST 06/24/2010 8:44 AM EST Anup Hawkins MD CHEMISTRY ORDERAB LES Performing Organization Address City/State/[facility] Co de Phone Number [facility] documented in this encounter Visit Diagnoses Not on filedocumented in this encounter Care Teams Critical Care Technician Relationship Specialty Start Date End Date Abhijeet Laughlin MD [address] [place] [address] PCP - General 06/03/10 07/20/11 documented as of this encounter
--- OUTSIDE RECORDS SUMMARY | 2024-05-23 13:42 | XMS_ITS | Encounter Summary ---
Author Organization [facility] Address [address] [place] [address] Care Team Providers Care Plasma Specialist Name Role Phone Unknown, Provider Primary Care Provider Unava ilable Encounter Details Date Type Department Care Team (Late st Contact Info) Description 03/15/2012 Results Only [facility] Laboratory Services - [facility] ([facility] [address] [place], [place] [address] Carroll Fuentes, DO [address], [place] [id number] Social History Tobacco Use Types Packs/Day Years [...] ? CHRISTY AMBROSE ? Accession #: ? [id number] ? : ? 1960 (Age: 51) ??M [...] cassette. ??(Greyson Myles/clare End of Report [facility] 03/15/2012 03/16/2012 9:2 0 EDT us Carorll Fuentes DO PATHOLOGY ORDERABLES Final Result [facility] [address] [place] [address] documented in this encounter Visit Diagnoses Not on filedocumented in this encounter Care Teams Plasma Specialist Relationship Specialty Start Date End Date Unknown, Provider, PCP - General 03/16/12 03/16/12 documented as of this encounter
--- OUTSIDE RECORDS SUMMARY | 2024-05-23 13:42 | XMS_ITS | Encounter Summary ---
Author Organization [facility] Address [address] [place] [address] Care Team Providers Care Delivery Analyst Name Role Phone Carroll Fuentes DO Primary Care Provider [phone] Encounter Details Date Type Department Care Team (Latest Contact Info) Description 06/20/2014 17:04 EST - 06/20/2014 23:59 EST Hospital Encounter [address] [address] Unknown, Provider, MD Discharge Disposition: Home or Self Care Social History Tobacco Use Types Packs/Day Years Used Date Smoking Tobacco: Never Assessed Sex and Gender Information Value Date Recorded Sex Assigned at Not on file Legal Sex Male 18:56 EST Gender Identity Not on file Sexual Orientation Not on file documented as of this encounter Discharge Disposition Disposition Code Departure Means Destination Home or Self Detention documented in this encounter Plan of Treatment Not on file documented as of this encounter Visit Diagnoses Not on filedocumented in this encounter Care Teams Delivery Analyst Relationship Specialty Start Date End Date Carroll Fuentes DO [address] [place] [address] PCP - General 03/17/12 documented as of this encounter
--- OUTSIDE RECORDS SUMMARY | 2024-05-23 13:42 | XMS_ITS | Encounter Summary ---
Author Organization [facility] Address [address] [place] [address] Care Team Providers Care Miner Placer Name Role Phone Carroll Fuentes DO Primary Care Provider [phone]- [phone] Encounter Details Date Type Department Care Team (Late st Contact Info) Description 07/18/2021 Lab Requisition [facility] Pathology & Laboratory Medicine - [address] [address] Outr Resulting Lab, Provider Social History Tobacco [...] Comments ZZCOVID-19 TEST [facility] PCR Today 07/18/2021 12:39 EST COVID-19 TESTING Routine 07/18/2021 12:3 9 EST documented in this encounter Results * COVID-19 TEST [facility] PCR (07/18/2021 12:39 EST) Swab 07/18/2021 12:3 9 EST 07/18/2021 21:42 EST us Provider Outr Resulting Lab MICROBIOLOGY - GENER AL ORDERABLES Final Result [facility] [address] [place] [address] * COVID-19 TESTING (07/18/2021 12:39 EST) COVID-19 rt-PCR Result Negative Negative 07/19/2021 14:52 EST [facility] Comment: This test has not [...] was performed using the aneudy SARS-CoV-2 assay ([employer] on the Aneudy 6800 System Performing Lab Aneudy 6800 [facility] Lab 07/19/2021 14:52 EST [facility] Swab 07/18/2021 12:3 9 EST 07/18/2021 21:42 EST us Provider Outr Resulting Lab MICROBIOLOGY - GENER AL ORDERABLES Final Result [facility] [address] [place] [address] documented in this encounter Visit Diagnoses Not on filedocumented in this encounter Additional Health Concerns Infection Onset Date Last Indicated Resolved Time COVID-19 11/14/2021 11/14/2021 12/04/2021 22:1 6 EDT documented as of this encounter Care Teams Miner Placer Relationship Specialty Start Date End Date Carroll Fuentes DO [address] [place] [address] PCP - General 03/17/12 documented as of this encounter
--- OUTSIDE RECORDS SUMMARY | 2024-05-23 13:42 | XMS_ITS | Encounter Summary ---
Author Organization [facility] Address [address] [place] [address] Care Team Providers Care Sharepoint Consultant Name Role Phone Carroll Fuentes DO Primary Care Provider [phone]- [phone] Encounter Details Date Type Department Care Team (Late st Contact Info) Description 05/24/2012 Results Only [facility] Services - [facility] [address] [place] [address] [id number] Bharat Zhang MD [address] [place] [address] Social History Tobacco Use Types Packs/Day Years [...] ? CHRISTY AMBROSE ? Accession #: ? [id number] ? : ? 1960 (Age: 51) ??M ? Collect Date: ? 05/24/2012 ? Location: ? [facility] ? Receive Date: ? 05/24/2012 ? Provider: BHARAT ZHANG MD Copy to: CARROLL FUENTES DO ??[place] [address] ? Final Pathologic Diagnosis: ? Colon, sigmoid, [...] JUDITH GODOY 05/24/2012 05/24/2012 16: 09 EST us Bharat Zhang MD PATHOLOGY ORDERABLES Final Result JUDITH GODOY [address] [place] [address] documented in this encounter Visit Diagnoses Not on filedocumented in this encounter Care Teams Sharepoint Consultant Relationship Specialty Start Date End Date Carroll Fuentes DO [address] [place] [address] [address] [place], [place] [address] PCP - General 03/17/12 documented as of this encounter
--- OUTSIDE RECORDS SUMMARY | 2024-05-23 13:42 | XMS_ITS | Encounter Summary ---
Author Organization [facility] Address [facility] [place] [address] Care Team Providers Care Electrical Power Station Technician Name Role Phone Abhijeet Laughlin MD Primary Care Provider [phone] Encounter Details Date Type Department Care Team (Latest Contact Info) Description 06/23/2010 6:32 PM EST - 06/23/2010 11:59 PM [facility] Hospital [place] [address] Anup Hawkins MD [facility] [place] [address] Discharge Disposition: Home Social History Tobacco Use [...] filedocumented in this encounter Care Teams Electrical Power Station Technician Relationship Specialty Start Date End Date Abhijeet Laughlin MD [address] [place] [address] PCP - General 06/03/10 07/20/11 documented as of this encounter
--- OUTSIDE RECORDS SUMMARY | 2024-05-23 13:42 | XMS_ITS | Encounter Summary ---
Author Organization [facility] Address [address] [place] [address] Care Team Providers Care Watch Engineer Name Role Phone Carroll Fuentes DO Primary Care Provider [phone]- [phone] Encounter Details Date Type Department Care Team (Latest Contact Info) Description 01/23/2016 9:46 EDT - 01/23/2016 23:59 EDT Hospital Encounter [address] [address] Unknown, Provider, MD Discharge Disposition: Home or [...] Code Departure Means Destination Home or Self Longterm documented in this encounter Plan of Treatment Not on file documented as of this encounter Visit Diagnoses Not on filedocumented in this encounter Care Teams Watch Engineer Relationship Specialty Start Date End Date Carroll Fuentes DO [facility] [place] [address] [place] [address] PCP - General 03/17/12 documented as of this encounter
--- OUTSIDE RECORDS SUMMARY | 2024-05-23 13:42 | XMS_ITS | Encounter Summary ---
Author Organization [facility] [place] [address] Care Team Providers Care Systems Designer Name Role Phone Abhijeet Laughlin MD Primary Care Provider [phone] Encounter Details Date Type Department Care Team (Late st Contact Info) Description 05/20/2010 [place] [address] Anup Hawkins MD [facility] [place] [address] Social History Tobacco Use Types Packs/Day Years [...] 10:00 AM EST) Tacrolimus 5.0 ng/mL [facility] Comment:Trough therapeutic: 5-15 ng/mL Blood specimen (specimen) 05/20/2010 10:00 AM EST 05/21/2010 8:21 AM EST Anup Hawkins MD CHEMISTRY ORDERAB LES Performing Organization Address City/State/[facility] Co de Phone Number [facility] documented in this encounter Visit Diagnoses Not on filedocumented in this encounter Care Teams Systems Designer Relationship Specialty Start Date End Date Abhijeet Laughlin MD [address] [place] [address] PCP - General 06/03/10 07/20/11 documented as of this encounter
--- OUTSIDE RECORDS SUMMARY | 2024-05-23 13:42 | XMS_ITS | Clinical Summary ---
Author Organization [facility] Address [address] [place] [address] Care Team Providers Care Sand Mill Operator Facing Sand Name Role Phone Carroll Fuentes DO Primary Care Provider [phone]- [phone] Social History Tobacco Use Types Packs/Day Years [...] - 1-dose 60+ series) 2021 COVID-19 Vaccine ( season) 2023 Insurance [phone] xWORK (Work) [address] [address] [place] Care Teams Sand Mill Operator Facing Sand Relationship Specialty Start Date End Date Carroll Fuentes DO [address] [place] [address] PCP - General 03/17/12
--- OUTSIDE RECORDS SUMMARY | 2024-05-23 13:42 | XMS_ITS | Encounter Summary ---
Author Organization [facility] Address [address] [place] [address] Care Team Providers Care Dog Handler Name Role Phone Carroll Fuentes DO Primary Care Provider [phone]- [phone] Encounter Details Date Type Department Care Team (Late st Contact Info) Description 11/14/2021 Lab Requisition [facility] Pathology & Laboratory Medicine - [address] [address] Outr Resulting Lab, Provider Social History Tobacco [...] Comments ZZCOVID-19 TEST [facility] PCR Today 11/14/2021 11:40 EDT COVID-19 TESTING Routine 11/14/2021 11:4 0 EDT documented in this encounter Results * COVID-19 TEST [facility] PCR (11/14/2021 11:40 EDT) Swab 11/14/2021 11:4 0 EDT 11/14/2021 21:58 EDT us Provider Outr Resulting Lab MICROBIOLOGY - GENER AL ORDERABLES Final Result [facility] [address] [place] [address] * (ABNORMAL) COVID-19 TESTING (11/14/2021 11:40 EDT) COVID-19 rt-PCR Result Positive( AA) Negative 11/15/2021 13:10 EDT [facility] Comment: [...] was performed using the aneudy SARS-CoV-2 assay ([employer] on the Aneudy 6800 System Performing Lab Aneudy 6800 [facility] Lab 11/15/2021 13:10 EDT [facility] Swab 11/14/2021 11:4 0 EDT 11/14/2021 21:58 EDT us Provider Outr Resulting Lab MICROBIOLOGY - GENER AL ORDERABLES Final Result [facility] [address] [place] [address] documented in this encounter Visit Diagnoses Not on filedocumented in this encounter Additional Health Concerns Infection Onset Date Last Indicated Resolved Time COVID-19 11/14/2021 11/14/2021 12/04/2021 22:1 6 EDT documented as of this encounter Care Teams Dog Handler Relationship Specialty Start Date End Date Carroll Fuentes DO [address] [place] [address] [place] [address] PCP - General 03/17/12 documented as of this encounter
--- OUTSIDE RECORDS SUMMARY | 2024-05-23 13:42 | XMS_ITS | Referral Summary ---
Author Organization [facility] Address [address] [place] [address] Care Team Providers Care Gasoline Pump Mechanic Name Role Phone Carroll Fuentes Primary Care Provider +1- [phone] Social History Tobacco Use Types Packs/Day Years Used Date Smoking Tobacco: Never Assessed Sex and Gender Information Value Date Recorded Sex Assigned at Not on file Legal Sex Male 18:56 EST Gender Identity Not on file Sexual Orientation Not on file Plan of Treatment Not on file Insurance [phone] xWORK (Work) [address] [address] [place] Care Teams Gasoline Pump Mechanic Relationship Specialty Start Date End Date Carroll Fuentes DO [address] [place] [address] [address] [place] [address] PCP - General 03/17/12
--- OUTSIDE RECORDS SUMMARY | 2024-05-23 13:42 | XMS_ITS | Encounter Summary ---
Author Organization [facility] Address [address] [place] [address] Care Team Providers Care President + Publisher Name Role Phone Carroll Fuentes DO Primary Care Provider [phone]- [phone] Encounter Details Date Type Department Care Team (Late st Contact Info) Description 06/20/2014 Results Only [facility] [phone] Wes Garibay MD [facility] [place], [place] [id number] Social History Tobacco Use Types Packs/Day Years [...] ? CHRISTY AMBROSE ? Accession #: ? [id number] ? : ? 1960 (Age: 53) ??M ? Collect Date: ? 06/20/2014 ? Location: ? [facility] ? Receive Date: ? 06/20/2014 ? Provider: WES GARIBAY MD Copy to: CARROLL FUENTES DO ? Final Pathologic Diagnosis: HERNIA SAC, [...] Palacio 06/21/2014 11:54 AM End of Report [facility] 06/20/2014 20:0 6 EST 06/20/2014 20:06 EST us Wes Garibay MD PATHOLOGY ORDERABLES Fin al Result [facility] [address] [place] [address] documented in this encounter Visit Diagnoses Not on filedocumented in this encounter Care Teams President + Publisher Relationship Specialty Start Date End Date Carroll Fuentes DO [address] [facility] [place] [address] PCP - General 03/17/12 documented as of this encounter
--- OUTSIDE RECORDS SUMMARY | 2024-05-23 13:42 | XMS_ITS | Encounter Summary ---
Author Organization [facility] Address [facility] [place] [address] Care Team Providers Care Bone Process Operator Name Role Phone Abhijeet Laughlin MD Primary Care Provider [phone] Encounter Details Date Type Department Care Team (Late st Contact Info) Description 07/16/2010 [place] [address] Anup Hawkins MD [facility] [place] [address] Social History Tobacco Use Types Packs/Day Years [...] 8:30 AM EST) Tacrolimus 4.3 ng/mL [facility] Comment:Trough therapeutic: 5-15 ng/mL Blood specimen (specimen) 07/16/2010 8:30 AM EST 07/17/2010 8:28 AM EST Anup Hawkins MD CHEMISTRY ORDERAB LES [facility] documented in this encounter Visit Diagnoses Not on filedocumented in this encounter Care Teams Bone Process Operator Relationship Specialty Start Date End Date Abhijeet Laughlin MD [address] [place] [address] PCP - General 06/03/10 07/20/11 documented as of this encounter
--- OUTSIDE RECORDS SUMMARY | 2024-05-23 13:42 | XMS_ITS | Encounter Summary ---
Author Organization [facility] Address [facility] [place] [address] Care Team Providers Care Fish Trapper Name Role Phone Abhijeet Laughlin MD Primary Care Provider [phone] Encounter Details Date Type Department Care Team (Late st Contact Info) Description 04/22/2010 [place] [address] Anup Hawkins MD [facility] [place] [address] Social History Tobacco Use Types Packs/Day Years [...] 9:25 AM EDT) Tacrolimus 5.5 ng/mL [facility] Comment:Trough therapeutic: 5-15 ng/mL Blood specimen (specimen) 04/22/2010 9:25 AM EDT 04/23/2010 8:14 AM EDT Anup Hawkins MD CHEMISTRY ORDERAB LES Performing Organization Address City/State/[facility] Co de Phone Number [facility] documented in this encounter Visit Diagnoses Not on filedocumented in this encounter Care Teams Fish Trapper Relationship Specialty Start Date End Date Abhijeet Laughlin MD [address] [place] [address] PCP - General 06/03/10 07/20/11 documented as of this encounter
--- OUTSIDE RECORDS SUMMARY | 2024-05-23 13:42 | XMS_ITS | Encounter Summary ---
Author Organization [facility] Address [address] [place] [address] Care Team Providers Care Welfare Investigator Name Role Phone Alfredo Carroll Parth DO Primary Care Provider +1- [phone] Encounter Details Date Type Department Care Team (Late st Contact Info) Description 01/22/2016 Results Only [facility] [phone] Carroll Fuentes, DO [address] [place], [place] [address] Social History Tobacco Use Types Packs/Day Years [...] ? CHRISTY AMBROSE ? Accession #: ? [id number] ? : ? 1960 (Age: 55) ??M [...] with the physical examination is recommended. ??(Dr. Peters)/maty Microscopic Description: Sections consist of a minute fragment of skin that consists primarily of epithelium. ??There is a small portion of dermis. ??The epithelium is highly irregular with an infiltrative pattern in some regions. ??The epithelial cells show keratinization and a moderate degree of atypia with nuclear enlargement and hyperchromasia. ??There is abnormal keratinization. ??Deeper sections have similar features. ??(Dr. Peters)/maty Document reviewed and electronically signed by: KALA [...] Salmeron 01/24/2016 10:04 AM End of Report [facility] 01/22/2016 8:48 EDT 01/23/2016 8:48 EDT us Carroll Fuentes DO PATHOLOGY ORDERABLES Final Result [facility] [address] [place] [address] documented in this encounter Visit Diagnoses Not on filedocumented in this encounter Care Teams Welfare Investigator Relationship Specialty Start Date End Date Carroll Fuentes, [address] [place] [address] PCP - General 03/17/12 documented as of this encounter
--- OUTSIDE RECORDS SUMMARY | 2024-05-23 13:42 | XMS_ITS ---
Author Organization [facility] [place] [address] Care Team Providers Care Production Staff Worker Name Role Phone Roberto CarlosKellyIleana Lorenzo WINSTON Primary Care Provider [phone] [phone] Transplant Episode Kidney Candidate [facility] ([place], [place]) - [facility] Referred on 11/07/2019 Marked as Not a Candidate on 12/20/2019 Kidney CoordinatorRachelle Luther RN Phone: N/A Fax: N/A Email: N/A Scores Score Value Updated Exceptions/Reas ons CPRA Not available EPTS (Calc) 85 05/23/2024 [employer] Organ Diagnosis Organ Primary Contributory Kidney IgA Nephropathy Care Team Name Role Phone Fax Email Rachelle Luther RN Kidney Coordinator N/A N/A N/A Trever Boyd MD Referring Physician N/A N/A N/A Leisa Angulo Employee Health Rn N/A N/A N/A JIMENA Meade Teacher Of The Emotionally Disturbed N/A N/A N/A Anup Hawkins MD Transplant Physician N/A N/A N/A Events Pre-Transplant Referred: 11/07/2019 Committee: 12/20/2019 Pending Checklist Tasks (Due on or before 06/22/2024) Name Due Date Attached Appoint ment Coordinator Review of Records 05/16/2020 Dialysis History Dialysis History Start End Type Comments Center 07/30/2018 In-center Hemodialysis [facility] Dialysis Center Information Center Phone Fax Address [facility] [phone] [place] [address] [place] [address]
--- OUTSIDE RECORDS SUMMARY | 2024-05-23 13:42 | XMS_ITS | Encounter Summary ---
Author Organization [facility] Address [address] [place] [address] Care Team Providers Care Back Up Machine Operator Name Role Phone Carroll Fuentes DO Primary Care Provider [phone]- [phone] Encounter Details Date Type Department Care Team (Late st Contact Info) Description 08/24/2022 Lab Requisition [facility] Pathology & Laboratory Medicine - [address] [address] Rachelle Grey, DO [address] [place], [place] [id number] Encounter for other general examination Social History [...] management options, if applicable. 08/26/2022 11:06 EST [facility] Final Diagnosis A. SKIN OF BACK, EXCISION: - Hypertrophic actinic keratosis, completely excised. 08/26/2022 11:06 [facility] Attestation By the signature below, the attending physician certifies that they have 1) personally conducted a gross and/or microscopic examination of the described specimen(s), and/or personally interpreted the results of laboratory testing of the described specimen(s), and 2) personally rendered or confirmed the above diagnosis. 08/26/2022 11:06 [facility] at 1106 Clinical History Skin lesion 08/26/2022 11:06 [facility] Gross Description A. Received [...] sections. PANCHITO MURRAY(ASCP) 08/25/2022 10:52 08/26/2022 11:06 [facility] Performing Lab [facility] 08/26/2022 11:06 [facility] Scanned Images 08/26/2022 11:06 [facility] Tissue TISSUE SPECIMEN FROM SKIN / Unknown 08/24/2022 11:35 EST 08/24/2022 17:54 EST us Rachelle Grey DO PATHOLOGY ORDERABLES Final Re sult [facility] [address] [place] [address] documented in this encounter Visit Diagnoses Diagnosis Encounter for other general examination documented in this encounter Care Teams Back Up Machine Operator Relationship Specialty Start Date End Date Carroll Fuentes DO [address] [place] [address] PCP - General 03/17/12 documented as of this encounter
[2024-05-23 13:50] LABS: ESR 6 mm/hr (0-20)
[2024-05-23 14:46] LABS: C-Reactive Protein 0.97 mg/dL (<or=0.5)
== END 2024-05-23 13:26 ==
LOC: DI 13:07
PROVIDERS: PCP Nurse Practitioner Family; Visit Provider Podiatrist
DX: M20.41 Other hammer toe(s) (acquired), right foot (principal); M79.672 Pain in left foot; Z98.890 Other specified postprocedural states; L97.528 Non-pressure chronic ulcer of other part of left foot with other specified severity
CPT/HCPCS: 11721; 36415; 85652; 99214; 73630; 85025; 86140

== ENCOUNTER → 2024-06-06 10:17 | Outpatient (BNVA) | payer MEDICARE, MEDICAID, SELFPAY | PROVIDERS: PCP Nurse Practitioner Family; Referring Provider Nurse Practitioner Family; Visit Provider Podiatrist | DX: M86.9 Osteomyelitis, unspecified (principal); L03.032 Cellulitis of left toe; L60.3 Nail dystrophy; G62.9 Polyneuropathy, unspecified; E10.22 Type 1 diabetes mellitus with diabetic chronic kidney disease; N18.6 End stage renal disease; Z99.2 Dependence on renal dialysis; L97.526 Non-pressure chronic ulcer of other part of left foot with bone involvement without evidence of necrosis; B35.1 Tinea unguium | CPT/HCPCS: 99214 ==

== ENCOUNTER 2024-06-15 14:40 | Emergency (ER) | payer MEDICARE, MEDICAID, SELFPAY ==
[2024-06-15] VITALS (36 sets, daily range): BP systolic 74–134; BP diastolic 47–68; PULSE 51–58; RESP 10–26; TEMP 36.2–36.8; O2SAT 97–100
--- NOTE | 2024-06-15 15:00 | RT.EKG_ITS ---
APPROVED REPORT Exam: Resting ECG Reason for Exam: Fall Patient Location: E HR:51 bpm ECG Measurements Heart Rate 51 AXIS MA 177 P 75 QRSd 91 QRS 80 QT 454 T 76 QTc 419 Conclusion Sinus bradycardia, rate 51 No interval abnormalities No STEMI
--- NOTE | 2024-06-15 15:11 | DI.CT_ITS ---
Exam(s) CT HEAD CERV SPINE FACIAL WO EXAM: CT HEAD CERV SPINE FACIAL WO CLINICAL HISTORY: Fall, facial strike. TECHNIQUE: Imaging Protocol: Axial computed tomography images with coronal and sagittal reformatted images were created and reviewed COMPARISON: CT CT HEAD CERVICAL SPINE WO from 06/02/[address] HEAD WO from 04/01/2024 FINDINGS: CT Head: Ventricles and Extra axial spaces: Normal in size and morphology for the patient's age. Hemorrhage: None. 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 There are areas of decreased attenuation in the white matter consistent with chronic microvascular ischemic disease. N o evidence of an acute territorial infarct. No mass effect is identified. Midline shift: None. Brainstem/Cerebellum: Normal. Calvarium: Normal. Visualized Paranasal sinuses/Mastoids: There is complete opacification of the left sphenoid sinus. T here is opacification of a few ethmoid air cells. This appears chronic. No air-fluid levels are see n. The remaining visualized paranasal sinuses and mastoid air cells are clear. Soft Tissues: Unremarkable. CT Face: There is artifact from the patient's dental amalgam. Facial Bones: There are new mildly depressed bilateral nasal bone fractures. There is associated ov erlying soft tissue swelling. The nasal septum deviates to the right. The turbinates and ostiomeata l complexes are unremarkable. Sinuses and Mastoids: Please see the above section under visualized paranasal sinuses/mastoids. Globes, extraocular muscles, optic nerves and retrobulbar fat: Normal. Upper aerodigestive tract: Normal. Mandible and bilateral temporomandibular joints: Normal. Soft tissues: Soft tissue swelling over the nasal bone fractures. CT Cervical Spine: Bones: An acute fracture through the left C7 facet extending posteriorly to the junction with the albrecht lc. No significant displacement is seen. There is no subluxation associated with the vertebral bod y. Age-appropriate degenerative changes are seen in the cervical spine. Soft Tissues: Unremarkable. Lung Apices: The lung apices were not included on this examination. IMPRESSION: 1. No acute intracranial process. 2. No acute fracture or subluxation in the cervical spine. 3. Mildly depressed bilateral nasal bone fractures with overlying soft tissue swelling. 4. Acute fracture seen through the left facet at C7 extending posteriorly to the junction with the la dinorah. No subluxation is seen of the vertebral body. 5. Findings were discussed with Dr. Albarran at 4:25 p.m. on 06/15/2024. RADIATION DOSE DELIVERED: !Error Total DLP DATA REPOSITORY: All CT scans at this facility are submitted to the National Radiology Data Registry (NRDR) Dose Index Registry (DIR) with the [employer] (ACR). RADIATION OPTIMIZATION: All CT scans at this facility use at least one of these dose optimization te chniques: automated exposure control; mA and/or kV adjustment per patient size (includes targeted exa ms where dose is matched to clinical indication); or iterative reconstruction.
[2024-06-15 15:44] LABS: Abs Immature Grans 0.02 10^3/uL (0.0-0.06); Absolute Basophil Count 0.05 10^3/uL (0.0-0.2); Absolute Lymphocyte Count 1.48 10^3/uL (1.2-3.4); Absolute Monocyte Count 0.59 10^3/uL (0.1-0.8); Absolute Neutrophil Count 4.65 10^3/uL (1.2-6.7); Basophils % 0.7 %; Eosinophils % 1.5 %; HCT 39.6 % (40.0-50.0); Immature Grans % 0.3 %; Lymphocytes % 21.5 %; MCH 32.7 pg (27.0-33.0); MCHC 32.8 % (32.0-36.0); MCV 100 fL (80-95); MPV 8.7 fL (8.0-11.0); Monocytes % 8.6 %; Neutrophils % 67.4 %; Platelet Count 168 10^3/uL (130-400); RBC 3.97 10^6/uL (4.36-5.78); RDW 13.2 % (11.8-14.1); RDW-SD 48.4 fL; WBC 6.89 10^3/uL (4.4-10.8)
[2024-06-15 15:56] LABS: INR 1.1 (0.9-1.1); Prothrombin Time 10.7 sec (9.1-11.1)
[2024-06-15 16:29] LABS: ALT 24 U/L (16-63); AST 28 U/L (15-37); Albumin 4.4 g/dL (3.4-5.0); Alkaline Phosphatase 119 U/L (46-116); Anion Gap 14.4 mmol/L (3-11); BUN 42 mg/dL (7-18); Bilirubin, Total 0.61 mg/dL (0.2-1.0); CO2 29.6 mmol/L (21.0-32.0); Calcium 9.5 mg/dL (8.5-10.1); Chloride 97 mmol/L (98-107); Estimated GFR 7.46 (mL/min/1.73m2); Glucose 122 mg/dL (74-106); Magnesium 2.2 mg/dL (1.8-2.4); Potassium 4.4 mmol/L (3.5-5.1); Sodium 141 mmol/L (136-145)
[2024-06-15 16:31] LABS: CREATININE 7.6 mg/dL (0.70-1.30)
[2024-06-15] MEDS: Diph,Pertuss(Acell),Tet Vac/Pf 0.5 ML SYR IM (16:41)
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
--- NOTE | 2024-06-15 17:37 | W.EDPROG ---
Date of service: 06/15/24 Time of Service: 17:37 Medical Decision Making This patient was signed out to me. Please see previous notes for H&P and initial eval. In brief, 63yo M ESRD on HD M// presenting with epistaxis after a fall; was leaning forward from his chair to clean a spill on the floor, fell, and landed on his face. Labs consistent with known chronic disease processes. Found to have bilateral nasal fracture and C7 facet fracture. Signed out pending [facility] [place]. Spoke with NSGY PANCHITO Mejia; advised obtaining CTA neck to evaluate for vert injury, as well as upright cervical spine films after CT to evaluate for shift/stability. If no significant findings on imaging, would be appropriate for discharge home in [place] collar to followup with NSGY in 6 weeks. CTA independently reviewed; radiology read below with no evidence of vascular injury. Plain films independently reviewed; radiology read below with no displacement of fracture. On reassessment patient is alert and well appearing with reassuring vital signs (had been borderline hypotensive earlier in the visit though MAP consistently >65, now SBP consistently >110 for the past three hours). Dressing placed to abrasion on bridge of nose, lip laceration repaired. No nasal septal hematoma. The importance of maintaining the [place] collar in place at all times, 01/02, was stressed to the patient who verbalized understanding of the instructions and the potentially devastating consequences (neurologic injury, ) if these instructions are not followed. He asked appropriate questions and demonstrated understanding of the importance of following these instructions. Also asked questions about best minimizing scarring from lip laceration; advised reduced sun exposure and sunscreen once healed. Discharged home to followup with NSGY; discharge instructions and return precautions were reviewed with patient who verbalized understanding. All questions were answered and he is in full agreement with the plan. Imaging Data Radiologic Study: Radiologist's impression: CTA neck: IMPRESSION: 1. No evidence of 50% or greater stenosis involving the cervical segments of the right or left internal carotid arteries by NASCET criteria. 2. Known fracture is again seen involving the left-sided articular pillar at C7 there is no associated mass effect upon the adjacent left vertebral artery. XR c-spine: IMPRESSION: Known fracture involving the left articular pillar at C7 is not clearly visible on the current radiographic images. No other evidence of acute cervical fracture is detected. Lab Data Lab results reviewed: Yes I reviewed the patient's lab results. Labs: Laboratory Tests Range/Units 06/15/24 15:30 WBC (4.4-10.8) 10^3/uL 6.89 RBC (4.36-5.78) 10^6/uL 3.97 L Hgb (13.5-17.5) g/dL 13.0 L Hct (40.0-50.0) % 39.6 L MCV (80-95) fL 100 H MCH (27.0-33.0) pg 32.7 MCHC (32.0-36.0) % 32.8 RDW (11.8-14.1) % 13.2 Plt Count (130-400) 10^3/uL 168 MPV (8.0-11.0) fL 8.7 Immature Gran % % 0.3 Neutrophils % % 67.4 Lymphocytes % % 21.5 Monocytes % % 8.6 Eosinophils % % 1.5 Basophils % % 0.7 Nucleated RBC % (0.0-0.3) % 0.0 Absolute Neutrophils (1.2-6.7) 10^3/uL 4.65 Absolute Lymphocytes (1.2-3.4) 10^3/uL 1.48 Absolute Monocytes (0.1-0.8) 10^3/uL 0.59 Absolute Eosinophils (0.0-0.7) 10^3/uL 0.10 Absolute Basophils (0.0-0.2) 10^3/uL 0.05 PT (9.1-11.1) sec 10.7 INR (0.9-1.1) 1.1 Sodium (136-145) mmol/L 141 Potassium (3.5-5.1) mmol/L 4.4 Chloride (98-107) mmol/L 97 L Carbon Dioxide (21.0-32.0) mmol/L 29.6 Anion Gap (3-11) mmol/L 14.4 H BUN (7-18) mg/dL 42 H Creatinine (0.70-1.30) mg/dL 7.6 H* Est GFR (CKD-EPI 2020) (mL/min/1.73m2) 7.46 Glucose (74-106) mg/dL 122 H Calcium (8.5-10.1) mg/dL 9.5 Magnesium (1.8-2.4) mg/dL 2.2 Total Bilirubin (0.2-1.0) mg/dL 0.61 AST (15-37) U/L 28 ALT (16-63) U/L 24 Alkaline Phosphatase (46-116) U/L 119 H Total Protein (6.4-8.2) g/dL 8.0 Albumin (3.4-5.0) g/dL 4.4 ABO/Rh A Positive Antibody Screen NEGATIVE Quality:[facility] Health Related Social Needs: No Data to Display Procedures Laceration Laceration 1: Site: lip Side (If applicable): right Size (cm): 0.5 Description: linear Depth: simple, single layer Local anesthetic: Lidocaine 1% Amount of anesthesia used (mL): 0.5 Pre-repair: wound explored and irrigated extensively Skin layer closed with: nylon Size (cm): 6-0 Number of sutures: 2 Technique: simple, interrupted Discharge Plan Disposition Patient Disposition: Home Condition: Good Discharge Details Clinical Impression: C7 cervical fracture, Fracture of nasal bone Primary Care Provider: Ileana Azevedo ED Provider: Odalis Husain Home Meds and New Rx's Prescriptions: Continued sevelamer carbonate 800 mg tablet 800 mg PO TID Rx Instructions: must administer with a meal/food levetiracetam 250 mg tablet 250 mg PO ONCE Rx Instructions: take one tablet following dialysis. Tania-Madiha 0.8 mg tablet 1 tab PO DAILY ketoconazole 2 % cream 1 applic topical DAILY Qty: 30 5RF Rx Instructions: Apply 1gram of ointment to all toenails daily urea 39 % cream 1 applic topical .QD Qty: 227 3RF Rx Instructions: Apply to toenails (avoid areas of ulceration). May dispense 8oz bottle if available. amoxicillin 500 mg capsule 2,000 mg PO ONCE PRN Rx Instructions: 1hr before dental appointments tacrolimus [Prograf] 1 mg capsule 1 mg PO BID doxycycline hyclate 100 mg capsule 100 mg PO BID 21 Days Qty: 42 0RF acetaminophen [Mapap Extra Strength] 500 mg tablet 1,000 mg PO Q6H PRN PRN (Reason: pain (scale score 1-3)) Qty: 30 8RF multivitamin [Multiple Vitamins] Tablet 1 tab PO DAILY Qty: 90 3RF pantoprazole 20 mg tablet,delayed release (DR/EC) 20 mg PO DAILY Qty: 90 3RF levothyroxine [Tirosint] 100 mcg capsule 100 mcg PO DAILY Qty: 90 3RF aspirin 81 mg tablet,delayed release (DR/EC) 81 mg PO DAILY Qty: 90 4RF allopurinol 100 mg tablet 100 mg PO QPM Patient Comments: Per PCP med list 07/20/22 RH levetiracetam 500 mg tablet 500 mg PO BID Patient Comments: Per PCP med list 07/20/22 RH povidone-iodine [Betadine Swabsticks] 10 % swab 1 applic topical .QD PRN (Reason: disinfection) Qty: 50 2RF Rx Instructions: Swab wound of L foot daily with dressing change. Veltassa 25.2 gram powder in packet 25.2 g PO .4 time a week Rx Instructions: 25.2 grams orally sun/mon/wed/fri; Discharge Instructions Instructions: Neck Fracture (DC), Laceration Repair With Stitches ED, Nose Fracture ED Additional Instructions: YOU HAVE A BROKEN SPINE: KEEP THE [place] COLLAR ON AT ALL TIMES, 24 HOURS A DAY, UNTIL CLEARED BY NEUROSURGERY. FAILING TO DO THIS CAN RESULT IN PARALYSIS OR Followup with neurosurgery in 6 weeks; call [phone] tomorrow to schedule an appointment. You also have a broken nose. Do not blow your nose. Followup with ENT in one week; call the number below tomorrow to schedule an appointment. Stitches out in 7 days; primary care office, urgent care, or here in the ED. Return to the emergency department for new or worsening symptoms including if you fall again, feel lightheaded, have weakness/numbness/tingling in part of your body, or if you have any other concerns. Referrals: [facility] [Provider Group]
--- NOTE | 2024-06-15 17:45 | DI.CT_ITS ---
Exam(s) CT CAROTID NECK CTA EXAM: CT CAROTID NECK CTA CLINICAL HISTORY: c7 facet fracture, eval vert injury. TECHNIQUE: Imaging Protocol: Axial CT angiography was performed with multi-slice acquisition and mu lti-planar and MIP reconstructions. CONTRAST MATERIAL: Intravenous: Omnipaque 350 Contrast volume:70 ml COMPARISON: CT CT HEAD CERV SPINE FACIAL WO from 06/15/2024 FINDINGS: CTA Neck W: Common Carotid: Right: No significant plaque. No dissection, occlusion or significant stenosis. Left: No significant plaque. No dissection, occlusion or significant stenosis. External Carotid: Right: No significant plaque. No dissection, occlusion or significant stenosis. Left: No dissection, occlusion or significant stenosis. Internal Carotid: Right: No significant plaque. No dissection, occlusion or significant stenosis. Left: No significant plaque. No dissection, occlusion or significant stenosis. Vertebral Artery: Right: No significant plaque. No dissection, occlusion or significant stenosis. Left: No significant plaque. No dissection, occlusion or significant stenosis. No evidence posttr aumatic vascular injury. Lung Apices: No acute findings. Bones: No change in alignment of nondisplaced fracture through the left superior articular facet of C 7. Soft Tissues: Normal. IMPRESSION: CTA neck: Nondisplaced fracture of the left superior to or facet of C7. Normal CTA examination of th e neck. No evidence left vertebral artery injury. No significant atherosclerotic changes in the maciej tebral or carotid arteries. RADIATION DOSE DELIVERED: 322.06mGy.cm Total DLP DATA REPOSITORY: All CT scans at this facility are submitted to the National Radiology Data Registry (NRDR) Dose Index Registry (DIR) with the [employer] (A[employer]). RADIATION OPTIMIZATION: All CT scans at this facility use at least one of these dose optimization te chniques: automated exposure control; mA and/or kV adjustment per patient size (includes targeted exa ms where dose is matched to clinical indication); or iterative reconstruction.
--- NOTE | 2024-06-15 17:45 | DI.RAD_ITS ---
Exam(s) XR CERVICAL SP BALDWIN TRAUMA 2-3V EXAM: XR CERVICAL SP BALDWIN TRAUMA 2-3V CLINICAL HISTORY: c7 facet fracture. TECHNIQUE: 2D digital imaging was performed. AP and lateral views were performed upright. COMPARISON: CT CT HEAD CERVICAL SPINE WO from 04/06/[address] HEAD CERVICAL SPINE WO from 06/02/[address] CAROTID NECK CTA from 06/15/2024 FINDINGS: Exam is limited by presence of cervical collar and metallic snaps. Monitoring leads also overlie the neck and upper chest. BONES: The fracture of the left superior articular facet of C7 is not visible. Vertebral bodies are preserved in height. Facet degenerative changes present, greatest at C3-4 and C5-6. DISKS: Narrowing of the C3-4 and C5-6 disc spaces. Endplate osteophytes at these levels. ALIGNMENT: Mild anterolisthesis of C4 compared to C3. This appears unchanged from 2018 CT. Slight ant erolisthesis at C5-6. the odontoid and atlantoaxial articulations are normal. SOFT TISSUE: Cervical collar in place. Normal. The lung apices are clear. IMPRESSION: The fracture seen on CT is not visible on these limited plain films. Mild anterolisthesis at C3-4 and C5-6 likely secondary to degenerative changes of the facet joints. DATA REPOSITORY: RADIATION DOSE DELIVERED:
[2024-06-15] MEDS: Normal Saline - Diluent 50 ML VIAL IJ (18:12)
[2024-06-15] MEDS: Omnipaque 350 MG/ML 100 ML BTL 70 ML IJ (18:13)
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
--- NOTE | 2024-06-15 19:30 | DI.VRAD_ITS ---
Addendum created by Zacarias Mcgee MD on 06/15/2024 7:32:12 PM EST: THIS REPORT CONTAINS FINDINGS THAT MAY BE CRITICAL TO PATIENT CARE. The findings were verbally communicated via telephone conference with ARIES HADLEY at 7:32 PM EST on 06/15/2024. The findings were acknowledged and understood. Initial report created on 06/15/2024 7:29:55 PM EST: PROCEDURE INFORMATION: Exam: CT Cervical Spine Without Contrast Exam date and time: 06/15/2024 3:50 PM Age: 63 years old Clinical indication: Injury or trauma; Fall; Blunt trauma (contusions or hematomas); Nose TECHNIQUE: Imaging protocol: Computed tomography of the cervical spine without contrast. COMPARISON: CT HEAD CERVICAL SPINE WO 06/02/2018 1:14 PM FINDINGS: Bones: There is arthrosis involving the anterior atlantodental interval with loss of joint space and marginal osteophyte formation and the odontoid process is grossly intact. There is grade 1 retrolisthesis of C3 upon C4 and grade 1 anterolisthesis of C6 upon C7 and there is gross preservation of vertebral body height throughout cervical levels with no acute vertebral body fractures or other significant subluxations detected. Acute fracture is seen involving the left-sided pars interarticularis at C7. Probable ankylosis noted involving the left-sided facet joint at C4-C5 with no other acute fractures detected involving the posterior elements at remaining cervical levels. Discs/Spinal canal/Neural foramina: Posterior osteocartilaginous ridging seen at C3-C4 is more prominent left of midline and results in mild canal stenosis (AP canal dimension 8-9 mm) without significant cord compression. Uncovertebral and facet changes produce bilateral foraminal distortions/narrowings at C3-C4, left side greater than right. Lungs: No pneumothorax or consolidation detected at the lung apices. Soft tissues: Unremarkable. IMPRESSION: 1. Acute fracture is seen involving the left-sided pars interarticularis at C7 with no other acute fracturea detected involving the vertebral bodies or posterior elements at remaining cervical levels. 2. Posterior osteocartilaginous ridging seen at C3-C4 is more prominent left of midline and results in mild canal stenosis (AP canal dimension 8-9 mm) without significant cord compression. 3. Uncovertebral and facet changes produce bilateral foraminal distortions/narrowings at C3-C4, left side greater than right. Dictated and Authenticated by: Zacarias Mcgee MD. Ordering:ZARINA Guevara MD
== END 2024-06-15 21:26 | disposition home or self-care (01) ==
PROVIDERS: Emergency Medicine; Emergency Provider Student in an Organized Health Care Education/Training Program; PCP Nurse Practitioner Family
DX: S12.601A Unspecified nondisplaced fracture of seventh cervical vertebra, initial encounter for closed fracture (principal); S02.2XXA Fracture of nasal bones, initial encounter for closed fracture; S01.511A Laceration without foreign body of lip, initial encounter; Z94.0 Kidney transplant status; Z23 Encounter for immunization; Z79.82 Long term (current) use of aspirin; W01.0XXA Fall on same level from slipping, tripping and stumbling without subsequent striking against object, initial encounter; Y93.89 Activity, other specified; Y92.89 Other specified places as the place of occurrence of the external cause
CPT/HCPCS: 00123; 12011; 36415; 70498; 80053; 86850; 86900; 86901; 90715; 93005; 99285; 70450; 70486; 72040; 72125; 83735; 85025; 85610; 93010; J2003; J3490

== ENCOUNTER 2024-06-27 01:39 | Outpatient (CLI) | payer MEDICARE, MEDICAID, SELFPAY ==
--- NOTE | 2024-06-27 09:11 | DI.RAD_ITS ---
Exam(s) XR TOE LT SECOND EXAM: XR TOE LT SECOND CLINICAL HISTORY: osteomyelitis left 2nd toe,m86.9. TECHNIQUE: 2D digital imaging was performed. COMPARISON: CR XR FOOT LT COMPLETE from 05/23/2024 FINDINGS: BONES: Since the prior examination there are now findings of bony destruction and fragmentation of t he middle phalanx of the left 2nd toe. There is associated soft tissue swelling of the toe. No soft tissue gas is identified. These findings were not present on the prior examination from 05/23/2024. JOINTS: No dislocation present. SOFT TISSUE: Extensive atherosclerotic calcification is present. IMPRESSION: Since the prior examination, fragmentation and destructive changes are seen at the middle phalanx of the left 2nd toe. Given the clinical history, progression of osteomyelitis should be considered. Tr auma should also be considered. Please correlate clinically. Unexpected findings DATA REPOSITORY: RADIATION DOSE DELIVERED:
== END 2024-06-27 01:59 ==
LOC: DI 01:39
PROVIDERS: PCP Nurse Practitioner Family; Visit Provider Podiatrist
DX: M86.172 Other acute osteomyelitis, left ankle and foot (principal)
CPT/HCPCS: 73660

== ENCOUNTER 2024-06-27 02:57 | Outpatient (CLI) | payer MEDICARE, MEDICAID, SELFPAY ==
[2024-06-27 08:11] LABS: Abs Immature Grans 0.01 10^3/uL (0.0-0.06); Absolute Basophil Count 0.05 10^3/uL (0.0-0.2); Absolute Eosinophil Count 0.18 10^3/uL (0.0-0.7); Absolute Lymphocyte Count 1.16 10^3/uL (1.2-3.4); Absolute Monocyte Count 0.42 10^3/uL (0.1-0.8); Absolute Neutrophil Count 2.85 10^3/uL (1.2-6.7); Basophils % 1.1 %; Eosinophils % 3.9 %; HCT 36.8 % (40.0-50.0); HGB 12.2 g/dL (13.5-17.5); Immature Grans % 0.2 %; Lymphocytes % 24.8 %; MCH 32.8 pg (27.0-33.0); MCHC 33.2 % (32.0-36.0); MCV 99 fL (80-95); MPV 8.5 fL (8.0-11.0); Platelet Count 168 10^3/uL (130-400); RBC 3.72 10^6/uL (4.36-5.78); RDW 13.1 % (11.8-14.1); RDW-SD 47.4 fL; WBC 4.67 10^3/uL (4.4-10.8)
[2024-06-27 08:13] LABS: ESR 1 mm/hr (0-20)
[2024-06-27 08:29] LABS: C-Reactive Protein < 0.50 mg/dL (<or=0.5)
== END 2024-06-27 02:58 | disposition home or self-care (01) ==
LOC: LBO 02:57
PROVIDERS: PCP Nurse Practitioner Family; Visit Provider Podiatrist
DX: M86.9 Osteomyelitis, unspecified (principal)
CPT/HCPCS: 36415; 85652; 73660; 85025; 86140

== ENCOUNTER 2024-08-01 09:52 | Outpatient (CLI) | payer MEDICARE, MEDICAID, SELFPAY ==
[2024-08-01 09:59] LABS: Abs Immature Grans 0.02 10^3/uL (0.0-0.06); Absolute Basophil Count 0.07 10^3/uL (0.0-0.2); Absolute Eosinophil Count 0.14 10^3/uL (0.0-0.7); Absolute Lymphocyte Count 1.44 10^3/uL (1.2-3.4); Absolute Monocyte Count 0.51 10^3/uL (0.1-0.8); Absolute Neutrophil Count 3.66 10^3/uL (1.2-6.7); Basophils % 1.2 %; Eosinophils % 2.4 %; HCT 39.7 % (40.0-50.0); HGB 13.2 g/dL (13.5-17.5); Immature Grans % 0.3 %; Lymphocytes % 24.7 %; MCH 32.6 pg (27.0-33.0); MCHC 33.2 % (32.0-36.0); MCV 98 fL (80-95); MPV 8.7 fL (8.0-11.0); Monocytes % 8.7 %; Neutrophils % 62.7 %; Platelet Count 225 10^3/uL (130-400); RBC 4.05 10^6/uL (4.36-5.78); RDW 13.2 % (11.8-14.1); RDW-SD 47.6 fL; WBC 5.84 10^3/uL (4.4-10.8)
[2024-08-01 10:01] LABS: ESR 5 mm/hr (0-20)
[2024-08-01 10:41] LABS: C-Reactive Protein < 0.50 mg/dL (<or=0.5)
== END 2024-08-01 09:53 | disposition home or self-care (01) ==
LOC: LBO 09:55
PROVIDERS: PCP Nurse Practitioner Family; Visit Provider Podiatrist
DX: M86.9 Osteomyelitis, unspecified (principal)
CPT/HCPCS: 36415; 85652; 85025; 86140

== ENCOUNTER 2024-09-05 02:09 | Outpatient (CLI) | payer MEDICARE, MEDICAID, SELFPAY | END 2024-09-05 02:29 | PROVIDERS: PCP Nurse Practitioner Family; Visit Provider Podiatrist | DX: L60.3 Nail dystrophy (principal); B35.1 Tinea unguium; L03.032 Cellulitis of left toe; G62.9 Polyneuropathy, unspecified; E10.22 Type 1 diabetes mellitus with diabetic chronic kidney disease; N18.6 End stage renal disease; Z99.2 Dependence on renal dialysis; L97.526 Non-pressure chronic ulcer of other part of left foot with bone involvement without evidence of necrosis; L84 Corns and callosities; M79.674 Pain in right toe(s); M79.675 Pain in left toe(s); M86.172 Other acute osteomyelitis, left ankle and foot | CPT/HCPCS: 11055; 11056; 99214 ==

== ENCOUNTER 2024-09-18 16:48 | Outpatient (REF) | payer MEDICARE, MEDICAID, SELFPAY ==
[2024-09-18 17:09] LABS: Hemoglobin A1C 5.5 % (<5.7)
[2024-09-18 17:37] LABS: Calculated LDL 136 mg/dL (<100); Cholesterol 218 mg/dL (<200); HDL Cholesterol 51 mg/dL (>or=40); Magnesium 2.1 mg/dL; TSH 0.96 uIU/mL (0.36-3.74); Triglyceride 155 mg/dL (<150); Vitamin B12 835 pg/mL (193-986)
[2024-09-18 17:45] LABS: Uric Acid 1.8 mg/dL (3.5-7.2)
[2024-09-23 12:22] LABS: Levetiracetam 18.5 mcg/mL
== END 2024-09-18 16:49 | disposition home or self-care (01) ==
LOC: NCHCN 16:48
PROVIDERS: PCP Nurse Practitioner Family; Visit Provider Nurse Practitioner Family
DX: E03.9 Hypothyroidism, unspecified (principal); R73.01 Impaired fasting glucose; E78.00 Pure hypercholesterolemia, unspecified; K30 Functional dyspepsia; M10.9 Gout, unspecified
CPT/HCPCS: 80061; 80177; 82607; 83036; 83735; 84443; 84550

== ENCOUNTER → 2024-10-17 08:27 | Outpatient (BNVA) | payer MEDICARE, MEDICAID, SELFPAY | PROVIDERS: PCP Nurse Practitioner Family; Referring Provider Nurse Practitioner Family; Visit Provider Podiatrist | DX: Z51.89 Encounter for other specified aftercare (principal); M86.9 Osteomyelitis, unspecified; L03.116 Cellulitis of left lower limb; L60.3 Nail dystrophy; G62.9 Polyneuropathy, unspecified; E10.22 Type 1 diabetes mellitus with diabetic chronic kidney disease; N18.6 End stage renal disease; Z99.2 Dependence on renal dialysis; L97.526 Non-pressure chronic ulcer of other part of left foot with bone involvement without evidence of necrosis; B35.1 Tinea unguium; L84 Corns and callosities; L97.512 Non-pressure chronic ulcer of other part of right foot with fat layer exposed | CPT/HCPCS: 11042 ==

== ENCOUNTER → 2024-11-07 07:59 | Outpatient (BNVA) | payer MEDICARE, MEDICAID, SELFPAY | PROVIDERS: PCP Nurse Practitioner Family; Referring Provider Nurse Practitioner Family; Visit Provider Podiatrist | DX: Z51.89 Encounter for other specified aftercare (principal); M86.9 Osteomyelitis, unspecified; L03.031 Cellulitis of right toe; L03.032 Cellulitis of left toe; G62.9 Polyneuropathy, unspecified; E10.22 Type 1 diabetes mellitus with diabetic chronic kidney disease; N18.6 End stage renal disease; Z99.2 Dependence on renal dialysis; L97.526 Non-pressure chronic ulcer of other part of left foot with bone involvement without evidence of necrosis; B35.1 Tinea unguium; L84 Corns and callosities; L97.512 Non-pressure chronic ulcer of other part of right foot with fat layer exposed | CPT/HCPCS: 11042; 73660 ==

== ENCOUNTER 2024-11-07 09:05 | Outpatient (CLI) | payer MEDICARE, MEDICAID, SELFPAY ==
--- NOTE | 2024-11-07 08:30 | DI.RAD_ITS ---
Exam(s) XR TOE RT GREAT XR TOE RT SECOND EXAM: XR TOE RT GREAT CLINICAL HISTORY: Ulcer to the lateral aspect L97.512 ULCER RT FOOT. TECHNIQUE: 2D digital imaging was performed. Six images were obtained. COMPARISON: CR XR FOOT RT COMPLETE from 05/23/2024 FINDINGS: BONES: No acute fracture is present. The lateral aspect of the base of the distal phalanx of the gre at toe is lucent with poor visualization of the cortex. These are new findings compared to the prior examination. Osteomyelitis should be considered. No destructive changes are seen in the 2nd toe to suggest osteomyelitis. Stable postsurgical changes are seen in the 1st metatarsal. There also is s table deformity involving the head of the 3rd metatarsal which may reflect an avascular necrosis. JOINTS: No dislocation present. Degenerative changes are seen particularly at the 1st MTP joint. SOFT TISSUE: There is soft tissue swelling of the 1st and 2nd toes. Vascular calcifications are pres ent in the soft tissues. IMPRESSION: 1. Lucency and loss of visualization of the cortex involving the lateral aspect of the base of the di stal phalanx of the great toe. With the patient's history, osteomyelitis should be considered. 2. No evidence to suggest osteomyelitis involving the 2nd toe. DATA REPOSITORY: RADIATION DOSE DELIVERED:
--- NOTE | 2024-11-07 08:30 | DI.RAD_ITS ---
Exam(s) XR TOE LT SECOND EXAM: XR TOE LT SECOND CLINICAL HISTORY: Worsening? M86.9 OSTEOMYELITIS L97.526 ULCER LEFT FOOT. TECHNIQUE: 2D digital imaging was performed. Three images were obtained. COMPARISON: CR XR FOOT LT COMPLETE from 05/23/2024 CR XR TOE LT SECOND from 06/27/2024 CR XR TOE RT SECOND from 11/07/2024 FINDINGS: BONES: There appears to have been some interval healing of the fragments of the middle phalanx of th e 2nd toe since the prior examination. No bony destructive lesion is seen. There is a bipartite med ial sesamoid at the head of the 1st metatarsal bone. JOINTS: No dislocation present. There is a hallux valgus deformity. There is lateral subluxation of the proximal phalanx of the great toe relative to the 1st metatarsal. SOFT TISSUE: Extensive vascular calcification is seen in the soft tissues. There is soft tissue swel ling of the 2nd toe. IMPRESSION: Since the prior examination, there does appear to be some healing of the bony fragments of the middle phalanx of the 2nd toe since 06/27/2024. DATA REPOSITORY: RADIATION DOSE DELIVERED:
== END 2024-11-07 09:25 ==
LOC: DI 09:06
PROVIDERS: PCP Nurse Practitioner Family; Visit Provider Podiatrist
DX: L97.512 Non-pressure chronic ulcer of other part of right foot with fat layer exposed (principal); M86.9 Osteomyelitis, unspecified; L97.526 Non-pressure chronic ulcer of other part of left foot with bone involvement without evidence of necrosis; Z51.89 Encounter for other specified aftercare; L03.032 Cellulitis of left toe; L60.3 Nail dystrophy; G62.9 Polyneuropathy, unspecified; E10.22 Type 1 diabetes mellitus with diabetic chronic kidney disease; N18.6 End stage renal disease; Z99.2 Dependence on renal dialysis; B35.1 Tinea unguium; L84 Corns and callosities
CPT/HCPCS: 11042; 73660

== ENCOUNTER → 2024-11-23 09:11 | Outpatient (BNVA) | payer MEDICARE, MEDICAID, SELFPAY | PROVIDERS: PCP Nurse Practitioner Family; Referring Provider Nurse Practitioner Family; Visit Provider Podiatrist | DX: Z51.89 Encounter for other specified aftercare (principal); M86.9 Osteomyelitis, unspecified; L03.115 Cellulitis of right lower limb; L03.116 Cellulitis of left lower limb; L60.3 Nail dystrophy; G62.9 Polyneuropathy, unspecified; E10.22 Type 1 diabetes mellitus with diabetic chronic kidney disease; N18.6 End stage renal disease; Z99.2 Dependence on renal dialysis; B35.1 Tinea unguium; L84 Corns and callosities; L97.512 Non-pressure chronic ulcer of other part of right foot with fat layer exposed | CPT/HCPCS: 11042 ==

== ENCOUNTER → 2024-12-14 13:02 | Outpatient (BNVA) | payer MEDICARE, MEDICAID, SELFPAY | PROVIDERS: PCP Nurse Practitioner Family; Referring Provider Nurse Practitioner Family; Visit Provider Podiatrist | DX: L97.512 Non-pressure chronic ulcer of other part of right foot with fat layer exposed (principal); E10.22 Type 1 diabetes mellitus with diabetic chronic kidney disease; N18.6 End stage renal disease; Z99.2 Dependence on renal dialysis; L97.526 Non-pressure chronic ulcer of other part of left foot with bone involvement without evidence of necrosis; Z51.89 Encounter for other specified aftercare; M86.9 Osteomyelitis, unspecified; L60.3 Nail dystrophy; G62.9 Polyneuropathy, unspecified; B35.1 Tinea unguium; L84 Corns and callosities | CPT/HCPCS: 11042 ==

== ENCOUNTER → 2025-01-04 13:46 | Outpatient (BNVA) | payer MEDICARE, MEDICAID, SELFPAY | PROVIDERS: PCP Nurse Practitioner Family; Referring Provider Nurse Practitioner Family; Visit Provider Podiatrist | DX: L97.512 Non-pressure chronic ulcer of other part of right foot with fat layer exposed (principal); L97.526 Non-pressure chronic ulcer of other part of left foot with bone involvement without evidence of necrosis; M86.9 Osteomyelitis, unspecified; L03.031 Cellulitis of right toe; L03.032 Cellulitis of left toe; L60.3 Nail dystrophy; E10.22 Type 1 diabetes mellitus with diabetic chronic kidney disease; N18.6 End stage renal disease; Z99.2 Dependence on renal dialysis; B35.1 Tinea unguium; L84 Corns and callosities; E10.42 Type 1 diabetes mellitus with diabetic polyneuropathy; R09.89 Other specified symptoms and signs involving the circulatory and respiratory systems; L65.9 Nonscarring hair loss, unspecified; L60.2 Onychogryphosis; L60.8 Other nail disorders | CPT/HCPCS: 11055 ==

== ENCOUNTER 2025-01-22 18:41 | Emergency (ER) | payer MEDICARE, MEDICAID, SELFPAY ==
[2025-01-22] VITALS (12 sets, daily range): BP systolic 43–102; BP diastolic 13–71; PULSE 53–101; RESP 17–22; TEMP 36.5; O2SAT 92–95
--- NOTE | 2025-01-22 18:45 | RT.EKG_ITS ---
APPROVED REPORT Exam: Resting ECG Reason for Exam: dizziness Patient Location: E HR:91 bpm ECG Measurements Heart Rate 91 AXIS CO [id number] P [id number] QRSd 83 QRS 72 QT 373 T 69 QTc 460 Conclusion Atrial fibrillation...? atrial activity Low voltage, precordial leads...precordial leads <1.0mV
[2025-01-22 19:14] LABS: Abs Immature Grans 0.02 10^3/uL (0.0-0.06); HCT 41.2 % (40.0-50.0); HGB 13.6 g/dL (13.5-17.5); Immature Grans % 0.4 %; MCH 30.4 pg (27.0-33.0); MCHC 33.0 % (32.0-36.0); MCV 92 fL (80-95); MPV 8.4 fL (8.0-11.0); Platelet Count 172 10^3/uL (130-400); RBC 4.48 10^6/uL (4.36-5.78); RDW 13.5 % (11.8-14.1); RDW-SD 46.4 fL; WBC 5.37 10^3/uL (4.4-10.8)
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
[2025-01-22 19:33] LABS: ALT 47 U/L (16-63); AST 28 U/L (15-37); Albumin 3.7 g/dL (3.4-5.0); Alkaline Phosphatase 134 U/L (46-116); Anion Gap 13.4 mmol/L (3-11); BUN 27 mg/dL (7-18); Bilirubin, Total 0.7 mg/dL (0.2-1.0); CO2 27.6 mmol/L (21.0-32.0); Calcium 9.1 mg/dL (8.5-10.1); Chloride 94 mmol/L (98-107); Estimated GFR 10.47 (mL/min/1.73m2); Glucose 168 mg/dL (74-106); Magnesium 1.9 mg/dL (1.8-2.4); Potassium 3.6 mmol/L (3.5-5.1); Sodium 135 mmol/L (136-145); Total Protein 8.3 g/dL (6.4-8.2); Troponin I 18 ng/L (<or=76)
--- NOTE | 2025-01-22 19:53 | NUR.NOTE ---
Nursing Note:MD Gunn aware of pts hypotension, noted this is similar to baseline for pt. Pt is asymptomatic. On continuous monitoring
[2025-01-22 20:42] LABS: Troponin I 30 ng/L (<or=76)
== END 2025-01-22 22:11 | disposition home or self-care (01) ==
PROVIDERS: Emergency Provider Emergency Medicine; PCP Nurse Practitioner Family
DX: I48.91 Unspecified atrial fibrillation (principal); R42 Dizziness and giddiness
CPT/HCPCS: 99284; 99283; 80053; 93005; 83735; 84484; 85025; 93010

== ENCOUNTER 2025-01-30 13:09 | Outpatient (REF) | payer MEDICARE, MEDICAID, SELFPAY ==
[2025-01-30 15:48] LABS: TSH (W/Ref FT4) 1.16 uIU/mL (0.36-3.74)
== END 2025-01-30 13:10 | disposition home or self-care (01) ==
LOC: NCHCN 13:09
PROVIDERS: PCP Nurse Practitioner Family; Visit Provider Nurse Practitioner Family
DX: I48.91 Unspecified atrial fibrillation (principal)
CPT/HCPCS: 84443

== ENCOUNTER 2025-02-06 09:06 | Outpatient (CLI) | payer MEDICARE, MEDICAID, SELFPAY | END 2025-02-06 09:07 | disposition home or self-care (01) | LOC: CARDOPNVT 09:06 | PROVIDERS: PCP Nurse Practitioner Family; Visit Provider Nurse Practitioner Family | DX: R00.0 Tachycardia, unspecified (principal) | CPT/HCPCS: 93246 ==

== ENCOUNTER → 2025-02-08 14:07 | Outpatient (BNVA) | payer MEDICARE, MEDICAID, SELFPAY | PROVIDERS: PCP Nurse Practitioner Family; Referring Provider Nurse Practitioner Family; Visit Provider Podiatrist | DX: Z51.89 Encounter for other specified aftercare (principal); E10.621 Type 1 diabetes mellitus with foot ulcer; L97.512 Non-pressure chronic ulcer of other part of right foot with fat layer exposed; L03.031 Cellulitis of right toe; E10.42 Type 1 diabetes mellitus with diabetic polyneuropathy; E10.22 Type 1 diabetes mellitus with diabetic chronic kidney disease; N18.6 End stage renal disease; Z99.2 Dependence on renal dialysis; M86.8X7 Other osteomyelitis, ankle and foot; L60.3 Nail dystrophy; L84 Corns and callosities; B35.1 Tinea unguium; R09.89 Other specified symptoms and signs involving the circulatory and respiratory systems; L65.9 Nonscarring hair loss, unspecified; L60.2 Onychogryphosis; L60.8 Other nail disorders | CPT/HCPCS: 11055 ==

== ENCOUNTER 2025-02-08 15:17 | Emergency (ER) | payer MEDICARE, MEDICAID, SELFPAY ==
[2025-02-08] VITALS (50 sets, daily range): BP systolic 52–145; BP diastolic 35–125; PULSE 55–111; RESP 11–30; TEMP 36.4; O2SAT 93–99
--- NOTE | 2025-02-08 15:15 | RT.EKG_ITS ---
APPROVED REPORT Exam: Resting ECG Reason for Exam: High heart rate Patient Location: E HR:70 bpm ECG Measurements Heart Rate 70 AXIS MI 148 P 77 QRSd 77 QRS 82 QT 367 T 68 QTc 398 Conclusion Sinus rhythm...normal P axis, V-rate 60- 99 Low voltage, precordial leads...precordial leads <1.0mV Normal sinus rhythm normal axis normal intervals no acute ischemic changes
--- NOTE | 2025-02-08 16:15 | DI.RAD_ITS ---
Exam(s) XR PORTABLE CHEST AP EXAM: XR PORTABLE CHEST AP CLINICAL HISTORY: tachycardia and hypotension resolved TECHNIQUE: 2D digital imaging was performed. COMPARISON: CR,XR XR CHEST 2V PA LATERAL from 04/01/2024 FINDINGS: Central line again noted. LUNGS: Suboptimal pulmonary inflation. Mild bibasilar atelectasis. Clear. No pleural abnormality seen. HEART: Normal size. AORTA: Normal diameter. BONES: Unremarkable for age. Soft tissues: Unremarkable. IMPRESSION: No acute findings. DATA REPOSITORY: RADIATION DOSE DELIVERED:
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
[2025-02-08] MEDS: Normal Saline 500 ML 1000 ML IV (17:56)
[2025-02-08 18:52] LABS: Abs Immature Grans 0.02 10^3/uL (0.0-0.06); HCT 37.3 % (40.0-50.0); HGB 11.8 g/dL (13.5-17.5); Immature Grans % 0.5 %; MCH 30.6 pg (27.0-33.0); MCHC 31.6 % (32.0-36.0); MCV 97 fL (80-95); MPV 8.6 fL (8.0-11.0); Platelet Count 161 10^3/uL (130-400); RBC 3.86 10^6/uL (4.36-5.78); RDW 14.1 % (11.8-14.1); RDW-SD 50.1 fL; WBC 4.29 10^3/uL (4.4-10.8)
[2025-02-08 19:06] LABS: INR 1.1 (0.9-1.1); PTT Activated 27.0 sec (20.6-30.2); Prothrombin Time 11.1 sec (9.1-11.1)
[2025-02-08 19:18] LABS: ALT 39 U/L (16-63); AST 21 U/L (15-37); Albumin 3.1 g/dL (3.4-5.0); Alkaline Phosphatase 119 U/L (46-116); Anion Gap 6.9 mmol/L (3-11); BUN 54 mg/dL (7-18); Bilirubin, Total 0.5 mg/dL (0.2-1.0); CO2 31.1 mmol/L (21.0-32.0); Calcium 8.6 mg/dL (8.5-10.1); Chloride 101 mmol/L (98-107); Estimated GFR 6.67 (mL/min/1.73m2); Glucose 118 mg/dL (74-106); Magnesium 2.1 mg/dL (1.8-2.4); NT-proBNP 3346 pg/mL (<300); Potassium 5.1 mmol/L (3.5-5.1); Sodium 139 mmol/L (136-145); TSH (W/Ref FT4) 1.86 uIU/mL (0.36-3.74); Total Protein 6.9 g/dL (6.4-8.2); Troponin I 9 ng/L (<or=76)
[2025-02-08 20:29] LABS: Troponin I 11 ng/L (<or=76)
== END 2025-02-08 21:23 | disposition home or self-care (01) ==
PROVIDERS: Emergency Provider Emergency Medicine; PCP Nurse Practitioner Family
DX: I95.9 Hypotension, unspecified (principal); I12.0 Hypertensive chronic kidney disease with stage 5 chronic kidney disease or end stage renal disease; N18.6 End stage renal disease; E78.00 Pure hypercholesterolemia, unspecified; I48.91 Unspecified atrial fibrillation; Z90.5 Acquired absence of kidney; Z99.2 Dependence on renal dialysis; Z94.0 Kidney transplant status
CPT/HCPCS: 11055; 80053; 93005; 96360; 96361; 99284; 71045; 83735; 83880; 84443; 84484; 85025; 85610; 85730; 93010

== ENCOUNTER 2025-02-20 15:48 | Outpatient (CLI) | payer MEDICARE, MEDICAID, SELFPAY ==
--- NOTE | 2025-02-20 14:27 | DI.US_ITS ---
APPROVED REPORT EXAM: Comprehensive 2D, Doppler, and color-flow Echocardiogram Patient Location: Out-Patient Java Lead Engineer: Jennifer Bhatia RDCS (AE) Indications: New onset A Fib Other Information Study Quality: Fair. Technically limited study due to body habitus. Conclusion Normal left ventricular wall thickness and chamber size. Ejection fraction is 60% wall motion is normal Grossly normal right ventricular size and function Both atria are normal in size There is no structural or hemodynamically significant valvular disease Estimated right ventricular systolic pressure is 19 mmHg Ascending aorta measures 3.75 cm Patient was in sinus rhythm throughout the study Wall motion Left Ventricle The left ventricle is normal size. The left ventricular systolic function is normal. The left ventricular ejection fraction is within the normal range. There is normal left ventricular wall thickness. There is normal LV segmental wall motion. There is no ventricular septal defect visualized. LVEF is 60%. Right Ventricle Right ventricle is grossly normal in size. Right ventricular systolic function is grossly normal. Atria The left atrium size is normal. The right atrium size is normal. The interatrial septum is intact with no evidence for an atrial septal defect. Aortic Valve The aortic valve is normal in structure. There is no aortic valvular stenosis. No aortic regurgitation is present. Mitral Valve The mitral valve is normal in structure. No evidence of mitral valve stenosis. Trace mitral regurgitation. Tricuspid Valve The tricuspid valve is normal in structure. There is no tricuspid valve stenosis. Trace tricuspid regurgitation. The RVSP is 18.8 mmHg. Pulmonic Valve The pulmonary valve is normal in structure. There is no pulmonic valvular stenosis. Trace pulmonic regurgitation. Great Vessels The aortic root is normal in size. The ascending aorta is mildly dilated. Aortic arch is not well visualized. IVC is normal in size and collapses >50% with inspiration. Pericardium There is no pericardial effusion. 2D Dimensions IVSD d PLAX 1.05 cm M: 0.6-1.2 Ao Root d 3.32 cm M: 3.1 - 3.7 LVPW d PLAX 1.00 cm M: 0.6 - 1.2 Ao Asc Diam d 3.75 cm M: 2.6 - 3.4 LVID d PLAX 4.10 cm M: 4.2 - 5.8 LVDs 2.80 cm M: 2.5 - 4.0 LV EF Teichholz 60.0 % FS 31.58 % LV EDV (Teich) 72.2 mL LV ESV (Teich) 28.9 mL Auto EF LV EDV A4C 73.9 mL LV EDV A2C 74.3 mL LV EDV BP 72.8 mL LV ESV A4C 29.2 mL LV ESV A2C 31.3 mL LV ESV BP 29.9 mL LVEF(%) A4C 60.5 % LVEF(%) A2C 57.9 % LVEF(%) BP 59.0 % LV SV A4C 44.8 ml LV SV A2C 43.0 ml LV SV BP 42.9 ml LV CO A4C 3.1 L/min LV CO A2C 3.0 L/min LV CO BP 3.0 L/min HR A4C 68.31 BPM HR A2C 68.57 BPM LV EDV Index (BP) LV Diastology MV E' medial 0.075 (>0.07 m/s) MV E Vmax 0.42 (0.4-1.3 m/s) MV E/E' MED 5.56 (<14) MV A Vmax 0.55 (0.4-1.3 m/s) E/A Ratio 0.8 Aortic Valve AoV Vmax 1.05 m/s LVOT Vmax 1.10 m/s AoV Peak Grad 4.4 mmHg LVOT Peak Grad 4.8 mmHg AoV Area (Vmax) 3.31 cm2 LVOT VTI 0.284 m AoV VTI 0.220 m LVOT Mean Grad 2.7 mmHg AoV Mean Dave. 0.81 m/s LVOT SV 89.57 mL AoV Mean Grad 2.9 mmHg LVOT Diam s 2.00 cm AoV Area (VTI) 4.07 cm2 AV Regurg Peak Gr. 4.38 mmHg Velocity Ratio 1.05 Mitral Valve MV DT 275 (160-240 msec) MV Vmax TIPS 0.63 m/s MV Mean Grad 0.6 (<2mmHg) MV VTI 0.165 m Pulmonary Valve PV Peak Grad 2.2 mmHg RVOT Peak Gr. 2.2 mmHg RVOT VTI 0.128 m Tricuspid Valve RA Pressure 3.00 mmHg TR Vmax 1.99 m/s TV S' 0.13 m/s TR Peak Grad 15.8 mmHg RVSP (TR) 18.8 mmHg
== END 2025-02-20 16:08 ==
LOC: DI 15:48
PROVIDERS: PCP Nurse Practitioner Family; Visit Provider Internal Medicine Cardiovascular Disease
DX: I48.91 Unspecified atrial fibrillation (principal)
CPT/HCPCS: 93306

== ENCOUNTER 2025-02-27 10:35 | Outpatient (CLI) | payer MEDICARE, MEDICAID, SELFPAY ==
--- NOTE | 2025-02-27 11:30 | CER_ITS ---
Date of service: 02/27/25 Time of Service: 11:30 Cardiac Event Recorder Referring Provider:: Ileana Azevedo Indications:: Palpitations Cardiac Event Note: This is a cardiac event monitor. Patient was monitored for 7 days and 16 hours. Rhythm throughout was sinus with an average heart rate of 65. Minimum was 47, maximum 118 There were very rare isolated ventricular ectopic beats. There were very rare isolated atrial premature beats. There were several self- limited atrial runs. The longest of these was 7 beats in duration There was no atrial fibrillation, no high-grade AV block, no pauses greater than 3 seconds. No symptoms were reported
== END 2025-02-27 10:36 | disposition home or self-care (01) ==
LOC: CARDOPNVT 10:35
PROVIDERS: PCP Nurse Practitioner Family; Visit Provider Internal Medicine Cardiovascular Disease
DX: R00.2 Palpitations (principal); I49.1 Atrial premature depolarization
CPT/HCPCS: 93248

== ENCOUNTER → 2025-03-13 13:38 | Outpatient (BNVA) | payer MEDICARE, MEDICAID, SELFPAY | PROVIDERS: PCP Nurse Practitioner Family; Referring Provider Nurse Practitioner Family; Visit Provider Podiatrist | DX: Z51.89 Encounter for other specified aftercare (principal); L97.512 Non-pressure chronic ulcer of other part of right foot with fat layer exposed; M86.8X7 Other osteomyelitis, ankle and foot; L03.031 Cellulitis of right toe; L60.3 Nail dystrophy; E10.42 Type 1 diabetes mellitus with diabetic polyneuropathy; E10.22 Type 1 diabetes mellitus with diabetic chronic kidney disease; E10.621 Type 1 diabetes mellitus with foot ulcer; N18.6 End stage renal disease; Z99.2 Dependence on renal dialysis; L84 Corns and callosities; I73.89 Other specified peripheral vascular diseases; R09.89 Other specified symptoms and signs involving the circulatory and respiratory systems; L65.9 Nonscarring hair loss, unspecified; L60.2 Onychogryphosis; L60.8 Other nail disorders; L85.8 Other specified epidermal thickening | CPT/HCPCS: 11055; 11719 ==

== ENCOUNTER 2025-03-19 08:32 | Outpatient (CLI) | payer MEDICARE, MEDICAID, SELFPAY ==
--- NOTE | 2025-03-19 08:30 | RT.EKG_ITS ---
APPROVED REPORT Exam: Resting ECG Reason for Exam: evaluate cardiac status Patient Location: O HR:62 bpm ECG Measurements Heart Rate 62 AXIS KS 226 P 75 QRSd 110 QRS 74 QT 430 T 70 QTc 437 Conclusion Sinus rhythm...normal P axis, V-rate 50- 99 Prolonged KS interval...KS >220, V-rate 50- 90 Consider left atrial enlargement...wide or notched P waves Low voltage, extremity leads...all extremity leads <0.5mV
== END 2025-03-19 08:33 | disposition home or self-care (01) ==
LOC: DI.CARD 08:34
PROVIDERS: PCP Nurse Practitioner Family; Visit Provider Registered Nurse
DX: I95.3 Hypotension of hemodialysis (principal); I10 Essential (primary) hypertension; I51.7 Cardiomegaly
CPT/HCPCS: 93010

== ENCOUNTER → 2025-03-19 15:05 | Outpatient (BNVA) | payer MEDICARE, MEDICAID, SELFPAY | PROVIDERS: PCP Nurse Practitioner Family; Referring Provider Nurse Practitioner Family; Visit Provider Registered Nurse | DX: I95.3 Hypotension of hemodialysis (principal); I48.91 Unspecified atrial fibrillation; I12.9 Hypertensive chronic kidney disease with stage 1 through stage 4 chronic kidney disease, or unspecified chronic kidney disease; N18.6 End stage renal disease | CPT/HCPCS: 99214; 93005 ==

== ENCOUNTER → 2025-04-10 13:45 | Outpatient (BNVA) | payer MEDICARE, MEDICAID, SELFPAY | PROVIDERS: PCP Nurse Practitioner Family; Referring Provider Nurse Practitioner Family; Visit Provider Podiatrist | DX: Z51.89 Encounter for other specified aftercare (principal); L97.512 Non-pressure chronic ulcer of other part of right foot with fat layer exposed; L97.526 Non-pressure chronic ulcer of other part of left foot with bone involvement without evidence of necrosis; E10.42 Type 1 diabetes mellitus with diabetic polyneuropathy; E10.22 Type 1 diabetes mellitus with diabetic chronic kidney disease; N18.6 End stage renal disease; Z99.2 Dependence on renal dialysis; E10.621 Type 1 diabetes mellitus with foot ulcer; M86.8X7 Other osteomyelitis, ankle and foot; L84 Corns and callosities; L60.3 Nail dystrophy; B35.1 Tinea unguium; R09.89 Other specified symptoms and signs involving the circulatory and respiratory systems; L65.9 Nonscarring hair loss, unspecified; L60.2 Onychogryphosis; L60.8 Other nail disorders | CPT/HCPCS: 11056 ==

== ENCOUNTER 2025-04-12 04:22 | Outpatient (CLI) | payer MEDICARE, MEDICAID, SELFPAY ==
--- NOTE | 2025-04-12 06:30 | DI.NM_ITS ---
APPROVED REPORT Exam: Pharmacologic Patient Location: Out-Patient Room/Bed: Stress Nurse: Patty Shen RN Ordering Provider:LIAN CORREA, Contact Number: BMI: 22.81 Baseline Rhythm: Sinus Bradycardia Comment: Occasional PAC's Indications: Chronotropic insufficiency Medical History Medical History: Neuropathy, cellulitis, peripheral neuropathy, L arm lymphedema, venous insufficieny, dizziness, hypotension, end stage renal disease due to type one diabetes, seizure disorder, broviac catheter, cardiac arrest, HTN, DVT, hypothyroidism, TBI, epilepsy, s/p kidney transplant, HLD chronic pulmonary edema, palliative care patient. Cardiac Medications: Pantoprazole, levothyroxine, asprin, allopurinol, levetiracetam, tacrolimus Allergies: Hydrochlorothiazide, benzapril, codeine, pollen Cardiac Risk Factors: Family hx, HTN, HLD, PVD, CVD, diabetes Previous Cardiac Procedures: Cardiac arrest Pretest Chest Pain Characteristics: None Exercise History: Sedentary Physical Disabilities: Hx unstable balance Lung Sounds: Clear to auscultation Heart Sounds: Regular Stress Test Details Test: Pharmacologic stress testing performed using 0.4 mg of regadenoson per 5 mL given IV over 10 seconds. Reason for pharmacologic stress test: physical limitation, hypotension. Nuclear Acquisition: Rest Tc-99m/Stress Tc-99m 1 day Rest Isotope: Tc-99m Sestamibi. Dose: 9.7 Date: 04/12/2025 Injection Time: 0840 Stress Isotope: Tc-99m Sestamibi. Dose: 29.0 Date: 04/12/2025 Injection Time: 1020 HR Resting HR Supine: 58 bpm Max Heart Rate (APMHR): 157 bpm Target HR (85% APMHR): 133 bpm Max HR Achieved: 75 bpm % of APMHR: 48 Recovery HR: 67 bpm BP Resting BP Supine: 75/41 mmHg Max BP: 75/41 mmHg Recovery BP: 71/32 mmHg Comment: Dr. Ricci notified of low BP ECG Resting ECG: Sinus Bradycardia Ectopy: Occasional PAC's Stress ECG: Sinus Rhythm ST Change: Nondiagnostic low heart rate Arrhythmia: Occasional PAC's Recovery ECG: Sinus Rhythm Recovery ST Change: Nondiagnostic low heart rate Clinical Stress Symptoms: None Angina Score: None Rate Pressure Product: 5625 Stress ECG Conclusion 1. Resting electrocardiogram shows low voltage 2. Patient underwent testing using pharmacologic stress with regadenoson 3. Peak heart rate achieved was 48% of maximal predicted for age 4. Electrocardiographic portion of the test was nondiagnostic 5. See MPI report Stress Test Summary STAGE HR BP SpO2 Symptoms NOTES Supine 58 75/41 96% 1 min post Lexiscan injection 72 63/33 93% 3 min post Lexiscan injection 67 75/36 97% 6 min post Lexiscan injection 67 71/32 97% Dr. Ricci notified of low BP. OK to proceed with laying rinku test per Dr. Ricci. Patient denied any symptoms. Laying rinku performed. Patient denied all symptoms during test. Patient proceeded ambulatory with stand by assist to imaging in no apparent distress. MPI Conclusion Myocardial perfusion is normal. There is no ischemia or evidence of prior infarction Ejection fraction is 65% with normal wall motion
[2025-04-12] MEDS: Regadenoson 0.4 MG/5 ML SYR IVP (10:45)
== END 2025-04-12 04:42 ==
PROVIDERS: PCP Nurse Practitioner Family; Visit Provider Internal Medicine Cardiovascular Disease
DX: R06.00 Dyspnea, unspecified (principal); I95.9 Hypotension, unspecified
CPT/HCPCS: 78452; 93016; 93018; 93017; J2785

== ENCOUNTER 2025-04-24 13:24 | Outpatient (REF) | payer MEDICARE, MEDICAID, SELFPAY ==
[2025-04-24 16:22] LABS: Uric Acid 4.7 mg/dL (3.5-7.2)
== END 2025-04-24 13:25 | disposition home or self-care (01) ==
LOC: NCHCN 13:24
PROVIDERS: PCP Nurse Practitioner Family; Visit Provider Nurse Practitioner Family
DX: M10.9 Gout, unspecified (principal)
CPT/HCPCS: 84550

== ENCOUNTER 2025-05-08 01:04 | Outpatient (CLI) | payer MEDICARE, MEDICAID, SELFPAY ==
--- NOTE | 2025-05-08 | DI.CT_ITS ---
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 CONTRAST MATERIAL: Intravenous: Omnipaque 350 Contrast volume:75 mL Oral: Yes COMPARISON: CT CT CHEST/ABD/PEL W from 04/06/2018 CT,NM,TMT NM MPI REST STRESS GRP from 04/12/2025 FINDINGS: The examination is limited due to patient motion artifact. ABDOMEN: Lung Bases: There is scarring or atelectasis in the lung bases. Liver: Normal density. No measurable mass. Portal, Superior Mesenteric, and Splenic Veins: Unremarkable. Gallbladder and Biliary Tract: No radiodense calculus or dilation. Pancreas: Normal density, no abnormal calcifications or inflammatory process. Spleen: Normal. Adrenals: No masses seen. Kidneys: Status post left nephrectomy. There is marked right renal cortical atrophy. There are simple cysts seen on the right kidney. The largest measures 3.7 x 2.7 cm. No solid renal masses are seen on the right kidney. The left kidney is not visualized. No renal mass is seen in the left renal fossa. No radiodense stones or obstructive uropathy. There is a right pelvic renal transplant. There is marked thinning of the cortex of the kidney suggesting atrophy. This has developed since the prior examination from 04/06/2018. There is a well-circumscribed hypodense fluid attenuation lesion in the renal transplant consistent with a cyst. This cyst was present on the prior examination. No suspicious solid renal mass is seen in the transplant. Abdominal Aorta: Abdominal portion non-dilated. Atherosclerotic calcification is present. Bowel: There is diverticulosis of the colon without evidence of acute diverticulitis. There is stool seen throughout the colon suggesting constipation. There is no evidence of bowel wall thickening or bowel obstruction. There is a normal appendix present. Peritoneal Cavity: No ascites, collection or mesenteric inflammatory response. No free air. Lymph Nodes: Within normal limits. Bones: Within normal limits for the patient's age. Soft Tissues: There is a fat containing right inguinal hernia. There is a small fat containing umbilical hernia. PELVIS: Bladder: The urinary bladder is incompletely distended limiting evaluation. No gross abnormalities identified. Reproductive Organs: Unremarkable as visualized. Lymph Nodes: Within normal limits. Bones: Within normal limits for the patient's age. IMPRESSION: 1. No acute abdominal or pelvic process. 2. Status post left nephrectomy. Severely atrophic right kidney is again seen. There is a in atrophic right pelvic renal transplant. 3. There are simple cysts seen in both the renal transplant and the right kidney. No solid renal mass is seen. 4. Moderate amount of stool throughout the colon which may reflect constipation. RADIATION DOSE DELIVERED: 764.44mGy.cm Total DLP DATA REPOSITORY: All CT scans at this facility are submitted to the National Radiology Data Registry (NRDR) Dose Index Registry (DIR) with the [employer] (ACR). RADIATION OPTIMIZATION: All CT scans at this facility use at least one of these dose optimization techniques: automated exposure control; mA and/or kV adjustment per patient size (includes targeted exams where dose is matched to clinical indication); or iterative reconstruction.
[2025-05-08] MEDS: Barium Sulfate 2% W/V-Berry Smoothie 450 ML BTL PO ×2 (08:54→08:55)
[2025-05-08] MEDS: Normal Saline - Diluent 50 ML VIAL IJ (10:49)
[2025-05-08] MEDS: Omnipaque 350 MG/ML 100 ML BTL IJ (10:50)
== END 2025-05-08 01:24 ==
LOC: DI 01:04
PROVIDERS: PCP Nurse Practitioner Family; Visit Provider Registered Nurse Nephrology
DX: N18.6 End stage renal disease (principal); Z99.2 Dependence on renal dialysis; D58.2 Other hemoglobinopathies
CPT/HCPCS: 74177; J3490

== ENCOUNTER → 2025-05-22 13:53 | Outpatient (BNVA) | payer MEDICARE, MEDICAID, SELFPAY | PROVIDERS: PCP Nurse Practitioner Family; Referring Provider Nurse Practitioner Family; Visit Provider Podiatrist | DX: Z51.89 Encounter for other specified aftercare (principal); E10.42 Type 1 diabetes mellitus with diabetic polyneuropathy; M86.8X7 Other osteomyelitis, ankle and foot; L97.512 Non-pressure chronic ulcer of other part of right foot with fat layer exposed; L84 Corns and callosities; L03.116 Cellulitis of left lower limb; L60.3 Nail dystrophy; G62.9 Polyneuropathy, unspecified; E10.22 Type 1 diabetes mellitus with diabetic chronic kidney disease; N18.6 End stage renal disease; Z99.2 Dependence on renal dialysis; L97.526 Non-pressure chronic ulcer of other part of left foot with bone involvement without evidence of necrosis; B35.1 Tinea unguium; R09.89 Other specified symptoms and signs involving the circulatory and respiratory systems; L65.9 Nonscarring hair loss, unspecified; L60.2 Onychogryphosis; L60.8 Other nail disorders | CPT/HCPCS: 11055; 93922 ==

== ENCOUNTER 2025-05-24 12:10 | Emergency (ER) | payer MEDICARE, MEDICAID, SELFPAY ==
[2025-05-24] VITALS (20 sets, daily range): BP systolic 75–123; BP diastolic 42–62; PULSE 55–80; RESP 12–23; TEMP 36.9; O2SAT 95–98
--- NOTE | 2025-05-24 12:30 | RT.EKG_ITS ---
APPROVED REPORT Exam: Resting ECG Reason for Exam: fall Patient Location: E HR:60 bpm ECG Measurements Heart Rate 60 AXIS NV 162 P 64 QRSd 80 QRS 69 QT 394 T 61 QTc 393 Conclusion Sinus rhythm...normal P axis, V-rate 60- 99 Low voltage, precordial leads...precordial leads <1.0mV No STEMI
--- NOTE | 2025-05-24 12:37 | DI.CT_ITS ---
Exam(s) CT HEAD CERV SPINE FACIAL WO EXAM: CT HEAD CERV SPINE FACIAL WO CLINICAL HISTORY: fall, facial and HI. TECHNIQUE: Imaging Protocol: Axial computed tomography images with coronal and sagittal reformatted images were created and reviewed COMPARISON: CT CT HEAD CERV SPINE FACIAL WO from 06/15/[address] CAROTID NECK CTA from 06/15/2024 FINDINGS: CT BRAIN: No skull fractures. There is no evidence of intracranial hemorrhage, mass effect, or shift of midline structures. There is cerebellar atrophy again noted. There is also again noted evidence of a right occipital lobe infarct. Abundant bilateral periventricular hypodensity again noted consistent with chronic small vessel disease. Mildly asymmetric CSF space over the left convexity is unchanged. There is no evidence of acute extra-axial hemorrhage nor evidence of intra-axial hemorrhage. CT MAXILLOFACIAL BONES: There is a comminuted displaced and depressed fracture of the nasal bones. Prominently involving the left nasal bone and bony septum. There is no evidence of orbital blowout fracture nor other facial fractures evident. No fluid in the maxillary sinuses. There is opacification of the left sphenoid sinus incidentally noted. Ethmoidal air cells are clear. Frontal sinuses clear. CT CERVICAL SPINE: There is no evidence of fracture. No significant prevertebral soft tissue swelling. Facet arthropathy but no facet malalignment evident. Disc space narrowing at C3-4 and C5-6 levels. No significant osseous lesions evident. IMPRESSION: Comminuted depressed nasal bone fracture. Also fracture of the nasal septum. No evidence of other facial nor orbital blowout fractures. No evidence of cervical spine fracture, malalignment, nor acute compromise of the cervical spinal canal. No acute intracranial findings. Report called by myself to ER in the ER provider 05/24/2025 at 1:50 p.m. RADIATION DOSE DELIVERED: 1,837.86mGy.cm Total DLP DATA REPOSITORY: All CT scans at this facility are submitted to the National Radiology Data Registry (NRDR) Dose Index Registry (DIR) with the [employer] (ACR). RADIATION OPTIMIZATION: All CT scans at this facility use at least one of these dose optimization techniques: automated exposure control; mA and/or kV adjustment per patient size (includes targeted exams where dose is matched to clinical indication); or iterative reconstruction.
--- NOTE | 2025-05-24 12:40 | DI.CT_ITS ---
Exam(s) CT CHEST/ABD/PEL WO EXAM: CT CHEST/ABD/PEL WO CLINICAL HISTORY: fall, hypotensive, dialysis. TECHNIQUE: Imaging Protocol: Axial computed tomography images with coronal and sagittal reformatted images were created and reviewed. Computer aided detection (CAD) was utilized. CONTRAST MATERIAL: Noncontrast COMPARISON: CR XR CHEST 2V PA LATERAL from 09/18/2019 CR XR PORTABLE CHEST AP from 02/08/[address] ABDOMEN PELVIS W from 05/08/2025 FINDINGS: CHEST: Pulmonary parenchyma: Basal atelectasis versus scarring. No consolidation. No dominant measurable mass. Tracheobronchial tree: No bronchiectasis. No mucous plugging.No bronchial wall thickening. Pleura: No effusion or pneumothorax. Mediastinum: Within normal limits. Pulmonary arteries: No visible emboli. Cardiovascular: No pericardial effusion. Thoracic aorta non-dilated. Dialysis catheter in place. Bones: Anterior bridging osteophytes in the mid to lower thoracic spine. No lytic or blastic lesions. No compression fractures. Soft tissues: Unremarkable. ABDOMEN and PELVIS: Liver: Normal density. No suspicious mass. Gallbladder and biliary tract: No evidence of stones or wall thickening. No biliary dilatation. Pancreas: Normal density, no abnormal calcifications or inflammatory process. Spleen: Normal. Kidneys: Status post left nephrectomy. Atrophic [place] right kidney. Cyst again noted. The right-sided pelvic renal transplant is also atrophic. No hydronephrosis. No radiodense stones. No obstructive uropathy. No suspicious masses seen. Adrenal glands: No masses seen. Aorta: Abdominal portion non-dilated. Lymph nodes: Within normal limits. Soft tissues: Fat containing right inguinal hernia. Bladder: Empty and unable to be evaluated. Bowel: No obstruction or bowel wall thickening. Mild sigmoid diverticulosis. Normal quantity of stool. Normal appendix. Peritoneal cavity: No ascites. No focal collection. No mesenteric inflammatory response. No free air. Bones: Unremarkable for age. Reproductive organs: Unremarkable for age. IMPRESSION: No acute abnormality in the chest, abdomen or pelvis. RADIATION DOSE DELIVERED: Total DLP DATA REPOSITORY: All CT scans at this facility are submitted to the National Radiology Data Registry (NRDR) Dose Index Registry (DIR) with the [employer] (ACR). RADIATION OPTIMIZATION: All CT scans at this facility use at least one of these dose optimization techniques: automated exposure control; mA and/or kV adjustment per patient size (includes targeted exams where dose is matched to clinical indication); or iterative reconstruction.
[2025-05-24 13:22] LABS: Abs Immature Grans 0.02 10^3/uL (0.0-0.06); HCT 43.7 % (40.0-50.0); HGB 14.3 g/dL (13.5-17.5); Immature Grans % 0.3 %; MCH 30.8 pg (27.0-33.0); MCHC 32.7 % (32.0-36.0); MCV 94 fL (80-95); MPV 8.4 fL (8.0-11.0); Platelet Count 232 10^3/uL (130-400); RBC 4.65 10^6/uL (4.36-5.78); RDW 14.1 % (11.8-14.1); RDW-SD 47.6 fL; WBC 7.09 10^3/uL (4.4-10.8)
[2025-05-24] MEDS: Normal Saline 500 ML IV (13:55)
[2025-05-24 14:32] LABS: ALT 16 U/L (10-49); AST 18 U/L (<34); Albumin 3.8 g/dL (3.4-5.0); Alkaline Phosphatase 138 U/L (46-116); Anion Gap 11.5 mmol/L (3-11); BUN 39 mg/dL (9-23); Bilirubin, Total 0.40 mg/dL (0.2-1.2); CO2 26.5 mmol/L (20.0-31.0); Calcium 8.2 mg/dL (8.3-10.6); Chloride 102 mmol/L (98-107); Glucose 99 mg/dL (74-106); Potassium 4.4 mmol/L (3.5-5.1); Sodium 140 mmol/L (136-145); Total Protein 6.7 g/dL (5.7-8.2)
[2025-05-24] MEDS: Amoxicillin 500/Clav. 125 TAB PO (14:35)
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
== END 2025-05-24 14:56 | disposition home or self-care (01) ==
PROVIDERS: Emergency Provider Physician Assistant; PCP Nurse Practitioner Family
DX: S02.2XXA Fracture of nasal bones, initial encounter for closed fracture (principal); I95.9 Hypotension, unspecified; W19.XXXA Unspecified fall, initial encounter
CPT/HCPCS: 99284; 99285; 71250; 80053; 93005; 70450; 70486; 72125; 74176; 85025; 93010

== ENCOUNTER 2025-06-11 17:59 | Emergency (ER) | payer MEDICARE, MEDICAID, SELFPAY ==
[2025-06-11] VITALS (32 sets, daily range): BP systolic 56–154; BP diastolic 34–107; PULSE 59–121; RESP 14–28; O2SAT 62–99
--- NOTE | 2025-06-11 17:45 | RT.EKG_ITS ---
APPROVED REPORT Exam: Resting ECG Reason for Exam: Chest Pain Patient Location: E HR:61 bpm ECG Measurements Heart Rate 61 AXIS UT 162 P 70 QRSd 95 QRS 72 QT 425 T 72 QTc 429 Conclusion Sinus rhythm...normal P axis, V-rate 60- 99 Low voltage, precordial leads...precordial leads <1.0mV No STEMI
--- NOTE | 2025-06-11 18:00 | DI.CT_ITS ---
Exam(s) CT THORAX ABD/PEL CTA EXAM: CT THORAX ABD/PEL CTA CLINICAL HISTORY: chest/back pain wiht hypotension. TECHNIQUE: Imaging Protocol: Axial computed tomography images with coronal and sagittal reformatted images were created and reviewed CONTRAST MATERIAL: Intravenous: Omnipaque 350 Contrast volume:100 ml Oral: None COMPARISON: CT CT CHEST/ABD/PEL WO from 05/24/2025 FINDINGS: CHEST: AORTA: The diameter of the ascending thoracic aorta is mildly prominent measuring 3.8 cm. The diameter of the mid aortic arch is 2.7 cm. The diameter of the descending thoracic aorta is upper normal. There is no evidence of aortic dissection nor pericardial effusion. Abdominal aorta is mildly atherosclerotic but not enlarged. No dissection. Common and external iliac arteries are patent as are the common femoral arteries. No aneurysms. No dissection. The internal iliac arteries are also patent bilaterally and nonaneurysmal. There is no stenosis in the celiac and superior mesenteric arteries. No evidence of embolus within the SMA. The inferior mesenteric artery is also patent. LUNGS: Some atelectasis is noted in the right lower lobe. No confluent infiltrates nor pleural effusions. No ominous pulmonary nodules. No significant focal findings in the trachea and mainstem bronchi.. MEDIASTINUM: There is no hilar nor mediastinal adenopathy. Visualized thyroid unremarkable.The esophagus is dilated and fluid-filled throughout its length. There is also a moderate size hiatal hernia. CARDIAC: Heart size is normal. There is no pericardial effusion. ABDOMEN: GI: There is no ascites. The stomach is [id number]. No evidence of small-bowel obstruction. However, there is pneumatosis involving multiple small bowel loops in the mid-lower abdomen and there is free air as well as air-gas within multiple portal venous branches within the mesentery and more centrally within the superior mesenteric vein. There is also some portal venous air within the liver.. The cecum is mobile. LIVER: There are no focal hepatic lesions nor dilatation of intrahepatic ducts. There is gas within intrahepatic portal veins. GALLBLADDER/BILIARY: No obvious gallbladder pathology. CBD is not dilated. PANCREAS: No evidence of pancreatic mass nor dilatation of the pancreatic duct. SPLEEN: Spleen is not enlarged. There are no intrasplenic lesions. Splenic and portal veins are patent. There is abnormal air-gas within portal venous branches including the superior mesenteric vein. Small amount of air-gas also seen within peripheral portal veins within the liver. ADRENALS: There are no significant adrenal masses. KIDNEYS: Left kidney not seen. Right kidney severely atrophic and containing a parapelvic cysts measuring 3.8 x 3 cm. No solid renal masses. No calculi. No hydronephrosis. 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 .. ABDOMINAL AORTA: The abdominal aorta is not enlarged. LYMPH NODES: There is no retroperitoneal nor para-aortic adenopathy. No obvious mesenteric masses. ABDOMINAL WALL: There is a E right inguinal hernia which contains predominantly fat. No incarcerated bowel loop seen at this level. PELVIS: LYMPH NODES: There is no intrapelvic nor inguinal adenopathy. GI: No evidence of appendicitis.There is sigmoid diverticuli but no evidence of acute diverticulitis. URINARY BLADDER: Collapsed. Similar to previous. REPRODUCTIVE: Prostate not enlarged. Seminal vesicles unremarkable. OSSEOUS: No significant osseous lesions. No evidence of avascular necrosis of the hips. No acute fractures IMPRESSION: 1. There is ischemic/necrotic small-bowel loops with secondary pneumatosis and there is abundant gas in the mesenteric veins extending up the superior mesenteric vein and with some portal venous gas also seen within the liver. No evidence of liver abscess. 2. Right inguinal fat containing hernia but no evidence of bowel obstruction. 3. Absent left kidney. Atrophic right kidney again noted. Also atrophic right renal fossa transplant kidney. 4. No acute findings in the chest. 5. Patent aorta. Patent superior and inferior mesenteric arteries as well as patent celiac artery. No evidence of embolus within the SMA. No ascites. Surgical consultation recommended Preliminary virtual Radiology report was reviewed. RADIATION DOSE DELIVERED: 512.17mGy.cm Total DLP DATA REPOSITORY: All CT scans at this facility are submitted to the National Radiology Data Registry (NRDR) Dose Index Registry (DIR) with the [employer] (A[employer]). RADIATION OPTIMIZATION: All CT scans at this facility use at least one of these dose optimization techniques: automated exposure control; mA and/or kV adjustment per patient size (includes targeted exams where dose is matched to clinical indication); or iterative reconstruction.
[2025-06-11] MEDS: ACETAMINOPHEN 1,000 MG/100 ML BAG 400 MG IVPB (18:24)
[2025-06-11 18:32] LABS: Abs Immature Grans 0.10 10^3/uL (0.0-0.06); HCT 45.1 % (40.0-50.0); HGB 14.6 g/dL (13.5-17.5); Immature Grans % 0.6 %; MCH 30.2 pg (27.0-33.0); MCHC 32.4 % (32.0-36.0); MCV 93 fL (80-95); MPV 8.6 fL (8.0-11.0); Platelet Count 286 10^3/uL (130-400); RBC 4.83 10^6/uL (4.36-5.78); RDW 13.5 % (11.8-14.1); RDW-SD 46.5 fL; WBC 17.00 10^3/uL (4.4-10.8)
[2025-06-11 18:39] LABS: INR 1.0 (0.9-1.1); PTT Activated 23.6 sec (20.6-30.2); Prothrombin Time 10.4 sec (9.1-11.1)
[2025-06-11 18:41] LABS: Magnesium 1.9 mg/dL (1.6-2.6); Troponin I 6 ng/L (<54)
[2025-06-11] MEDS: Omnipaque 350 MG/ML 100 ML BTL IJ (18:55)
[2025-06-11] MEDS: Normal Saline Flush 10 ML SYR IVP (18:55)
[2025-06-11] MEDS: Normal Saline - Diluent 50 ML VIAL IJ (18:55)
[2025-06-11 19:00] LABS: ALT 22 U/L (10-49); AST 24 U/L (<34); Albumin 5.0 g/dL (3.2-5.0); Alkaline Phosphatase 183 U/L (46-116); Anion Gap 15.5 mmol/L (3-11); BUN 34 mg/dL (9-23); Bilirubin, Total 0.50 mg/dL (0.2-1.2); CO2 27.3 mmol/L (20.0-31.0); Calcium 9.2 mg/dL (8.3-10.6); Chloride 95 mmol/L (98-107); Glucose 240 mg/dL (74-106); Potassium 3.1 mmol/L (3.5-5.1); Sodium 138 mmol/L (136-145); Total Protein 8.8 g/dL (5.7-8.2)
[2025-06-11 19:27] LABS: Troponin I 4 ng/L (<54)
[2025-06-11] MEDS: Ondansetron 4 MG/2 ML VIAL IVP (19:35)
[2025-06-11] MEDS: Normal Saline 250 ML IV (19:57)
[2025-06-11 19:59] LABS: Lipase 70 U/L (<53)
--- NOTE | 2025-06-11 20:17 | DI.VRAD_ITS ---
PROCEDURE INFORMATION: Exam: CTA Chest With Contrast CTA Abdomen and Pelvis With Contrast Exam date and time: 06/11/2025 6:47 PM Age: 64 years old Clinical indication: Other: Chest/back pain wiht hypotension TECHNIQUE: Imaging protocol: Computed tomographic angiography of the chest with contrast. Exam focused on the arteries. Computed tomographic angiography of the abdomen and pelvis with contrast. Exam focused on the arteries. 3D rendering (Not supervised by radiologist): MIP and/or 3D reconstructed images were created by the technologist. Total images: 2117 Contrast material: OMNI 350; Contrast volume: 75 ml; Contrast route: INTRAVENOUS (IV); COMPARISON: CT CHEST/ABD/PEL WO 05/24/2025 12:59 PM FINDINGS: VASCULATURE: Pulmonary arteries: No filling defects central pulmonary arterial tree. Aorta: No aortic aneurysm or dissection. Celiac and mesenteric arteries: No occlusion or significant stenosis. Renal arteries: Chronic absent flow bilateral renal arteries. Right iliac arteries: No occlusion or significant stenosis. Left iliac arteries: No occlusion or significant stenosis. CHEST: Lungs: Linear scarring both lung bases. No consolidation. Pleural spaces: Unremarkable. No pneumothorax. No pleural effusion. Heart: Unremarkable. No cardiomegaly. No pericardial effusion. Coronary arteries: No coronary calcification. Esophagus: Hiatal hernia with fluid distended esophagus. ABDOMEN AND PELVIS: Liver: No mass. Portal venous gas. Gallbladder and biliary ducts: Unremarkable. No calcified stones. No ductal dilation. Pancreas: Unremarkable. No mass. No ductal dilation. Spleen: Unremarkable. No splenomegaly. Adrenal glands: Unremarkable. No mass. Kidneys and ureters: Nonvisualized left kidney. Severely atrophic right kidney with a 3.5 cm cyst. Atrophic right lower quadrant renal transplant. Stomach and bowel: Pneumatosis involving multiple small bowel loops in the mid to lower abdomen. Appendix: No evidence of appendicitis. Intraperitoneal space: Air within multiple portal venous branches within the mesentery and more centrally in the SMV. No free air. No significant fluid collection. Urinary bladder: Unremarkable. No mass. Reproductive: Unremarkable as visualized. Lymph nodes: Unremarkable. No enlarged lymph nodes. Bones/joints: Unremarkable. No acute fracture. Soft tissues: Unremarkable. IMPRESSION: 1. Ischemic/necrotic bowel with secondary pneumatosis, mesenteric venous and portal venous gas. 2. THIS REPORT CONTAINS FINDINGS THAT MAY BE CRITICAL TO PATIENT CARE. The findings were verbally communicated via telephone conference with Oscar Armas at 8:12 PM EST on 06/11/2025. The findings were acknowledged and understood. Dictated and Authenticated by: Kurt Esquivel MD. Orderin Chanda Moore MD
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
[2025-06-11] MEDS: Lidocaine 2% Jelly 6 ML SYR (21:00)
[2025-06-12 00:46] LABS: COVID-19 PCR Negative (Negative); RSV PCR Negative (Negative)
--- NOTE | 2025-06-12 11:31 | NUR.NOTE ---
Accessed Pt chart to send a copy of Pts discharge summary to [facility].
== END 2025-06-11 21:50 | disposition short-term general hospital (02) ==
PROVIDERS: Emergency Provider General Practice; PCP Nurse Practitioner Family
DX: K04.90 Unspecified diseases of pulp and periapical tissues (principal); A41.9 Sepsis, unspecified organism; E78.00 Pure hypercholesterolemia, unspecified; E10.40 Type 1 diabetes mellitus with diabetic neuropathy, unspecified; E10.11 Type 1 diabetes mellitus with ketoacidosis with coma; I12.0 Hypertensive chronic kidney disease with stage 5 chronic kidney disease or end stage renal disease; N18.6 End stage renal disease; Z86.73 Personal history of transient ischemic attack (TIA), and cerebral infarction without residual deficits; Z90.5 Acquired absence of kidney; Z99.2 Dependence on renal dialysis; Z94.0 Kidney transplant status; Z79.82 Long term (current) use of aspirin; Z79.899 Other long term (current) drug therapy
CPT/HCPCS: 71275; 80053; 83690; 87040; 87637; 93005; 96361; 96365; 96375; 99285; 74174; 83605; 83735; 84484; 85025; 85610; 85730; 93010; J0131; J2405; J3490